=== PATIENT | male | born 1985 | race African-American/Black ===

== ENCOUNTER 2017-10-03 20:24 | Inpatient (IN) | payer OTHER ==
--- OUTSIDE RECORDS SUMMARY | 2017-10-03 20:26 | XMS REPORT ---
:1985 [facility] Organization [facility] Address [address] [place] [address] [address]. [address] [place] [address] Care Team Providers Name Role Phone LAMAR GENAO Unavailable Unavailable Problems This patient has no known problems. Allergies, Adverse Reactions, Alerts This patient has no known allergies or adverse reactions. Medications This patient has no known medications. Results Test Description Test Time Test Comments Text Results Atomic Results Result Comments BLOOD CULTURE 2016-12-28 16:22:00 Test Item Value Reference Range Comments CULTURE (BEAKER) (test juxz=4761) No growth in 5 days BLOOD [id number] 16:22:00 Test Item Value Reference Range Comments CULTURE (BEAKER) (test nqfj=6151) No growth in 5 days (MANUAL DIFFERENTIAL)2016-12-25 22:29:00 Test Item Value Reference Range Comments TOTAL COUNTED (BEAKER) (test hsux=1470) WBC MORPHOLOGY (BEAKER) (test obkh=206) Normal PLT MORPHOLOGY (BEAKER) (test vgdi=082) Normal RBC MORPHOLOGY (BEAKER) (test kmhz=044) Normal CBC W/PLT COUNT & AUTO [id number] 22:28:00 Test Item Value Reference Range Comments WHITE BLOOD CELL COUNT (BEAKER) (test bled=149) 7.3 K/ L 4.0-10.0 RED BLOOD CELL COUNT (BEAKER) (test gcpv=455) 5.09 M/ L 4.20-5.80 HEMOGLOBIN (BEAKER) (test akbw=077) 13.0 GM/DL 13.0-16.8 HEMATOCRIT (BEAKER) (test jahd=024) 42.3 % 40.0-50.0 MEAN CORPUSCULAR VOLUME (BEAKER) (test edov=612) 83.0 fL 82.0-98.0 MEAN CORPUSCULAR HEMOGLOBIN (BEAKER) (test 25.6 pg 27.0-33.0 gffv=516) MEAN CORPUSCULAR HEMOGLOBIN CONC (BEAKER) (test 30.8 GM/DL 32.0-36.0 gctn=165) RED CELL DISTRIBUTION WIDTH (BEAKER) (test 18.0 % 10.3-14.2 xjqe=457) PLATELET COUNT (BEAKER) (test trsy=075) 331 K/CU MM 150-430 MEAN PLATELET VOLUME (BEAKER) (test vpse=141) 8.5 fL 6.5-10.5 NUCLEATED RED BLOOD CELLS (BEAKER) (test 0 /100 WBC 0-0 xxii=109) NEUTROPHILS RELATIVE PERCENT (BEAKER) (test 65 % mhon=050) LYMPHOCYTES RELATIVE PERCENT (BEAKER) (test 23 % okbf=241) MONOCYTES RELATIVE PERCENT (BEAKER) (test 8 % umgn=460) EOSINOPHILS RELATIVE PERCENT (BEAKER) (test 3 % ncjm=657) BASOPHILS RELATIVE PERCENT (BEAKER) (test 1 % fnzt=076) NEUTROPHILS ABSOLUTE COUNT (BEAKER) (test 4.75 K/ L 1.80-8.00 nxin=176) LYMPHOCYTES ABSOLUTE COUNT (BEAKER) (test 1.68 K/ L 1.48-4.50 wzce=204) MONOCYTES ABSOLUTE COUNT (BEAKER) (test 0.55 K/ L 0.00-1.30 ngvu=990) EOSINOPHILS ABSOLUTE COUNT (BEAKER) (test 0.24 K/ L 0.00-0.50 eqqg=971) BASOPHILS ABSOLUTE COUNT (BEAKER) (test 0.05 K/ L 0.00-0.20 ergy=061) [id number] METABOLIC [id number] 11:11:00 Test Item Value Reference Range Comments SODIUM (BEAKER) (test 138 meq/L 136-145 vyuk=425) POTASSIUM (BEAKER) (test 4.0 meq/L 3.5-5.1 fozl=108) CHLORIDE (BEAKER) (test 108 meq/L 98-107 ivdu=195) CO2 (BEAKER) (test 23 meq/L 22-29 pxxa=006) BLOOD UREA NITROGEN 11 mg/dL 7-21 (BEAKER) (test ferj=000) CREATININE (BEAKER) (test 0.74 mg/dL 0.57-1.25 stdg=233) GLUCOSE RANDOM (BEAKER) 124 mg/dL 70-105 (test kwwg=543) CALCIUM (BEAKER) (test 8.9 mg/dL 8.4-10.2 wzgv=532) EGFR (BEAKER) (test 150 mL/min/1.73 sq m ESTIMATED GFR IS NOT dgcu=5071) ACCURATE CREATININE CLEARANCE IN PREDICTING GLOMERULAR FILTRATION RATE. ESTIMATED GFR IS NOT APPLICABLE FOR DIALYSIS PATIENTS. URINE [id number] 09:56:00 Test Item Value Reference Range Comments CULTURE (BEAKER) (test <10,000 col/mL skin marilee seoo=0369) COMPREHENSIVE METABOLIC [id number] 08:49:00 Test Item Value Reference Range Comments TOTAL PROTEIN (BEAKER) 7.3 gm/dL 6.0-8.3 (test wyyj=167) ALBUMIN (BEAKER) (test 3.3 g/dL 3.5-5.0 hraz=1232) ALKALINE PHOSPHATASE 89 U/L 40-150 (BEAKER) (test mugp=940) BILIRUBIN TOTAL (BEAKER) 1.4 mg/dL 0.2-1.2 (test sskp=884) SODIUM (BEAKER) (test 137 meq/L 136-145 bmcv=014) POTASSIUM (BEAKER) (test 3.7 meq/L 3.5-5.1 agab=750) CHLORIDE (BEAKER) (test 108 meq/L 98-107 jrtn=088) CO2 (BEAKER) (test 17 meq/L 22-29 zpus=575) BLOOD UREA NITROGEN 12 mg/dL 7-21 (BEAKER) (test jymy=394) CREATININE (BEAKER) (test 0.78 mg/dL 0.57-1.25 ocwv=361) GLUCOSE RANDOM (BEAKER) 119 mg/dL 70-105 (test dquz=475) CALCIUM (BEAKER) (test 8.6 mg/dL 8.4-10.2 yjxx=500) AST (SGOT) (BEAKER) (test 13 U/L 5-34 rioj=707) ALT (SGPT) (BEAKER) (test 28 U/L 6-55 qpzh=109) EGFR (BEAKER) (test 141 mL/min/1.73 sq ESTIMATED GFR IS NOT cdnd=5239) m ACCURATE CREATININE CLEARANCE IN PREDICTING GLOMERULAR FILTRATION RATE. ESTIMATED GFR IS NOT APPLICABLE FOR DIALYSIS PATIENTS. CBC W/PLT COUNT & AUTO [id number] 08:46:00 Test Item Value Reference Range Comments WHITE BLOOD CELL COUNT (BEAKER) (test kmlq=931) 9.4 K/ L 4.0-10.0 RED BLOOD CELL COUNT (BEAKER) (test ojno=330) 4.79 M/ L 4.20-5.80 HEMOGLOBIN (BEAKER) (test ihtm=388) 12.8 GM/DL 13.0-16.8 HEMATOCRIT (BEAKER) (test tdbs=190) 40.0 % 40.0-50.0 MEAN CORPUSCULAR VOLUME (BEAKER) (test xunw=141) 83.4 fL 82.0-98.0 MEAN CORPUSCULAR HEMOGLOBIN (BEAKER) (test 26.7 pg 27.0-33.0 mtrv=594) MEAN CORPUSCULAR HEMOGLOBIN CONC (BEAKER) (test 32.0 GM/DL 32.0-36.0 ebun=929) RED CELL DISTRIBUTION WIDTH (BEAKER) (test 18.2 % 10.3-14.2 xtqr=379) PLATELET COUNT (BEAKER) (test tmln=420) 313 K/CU MM 150-430 MEAN PLATELET VOLUME (BEAKER) (test agyy=076) 8.6 fL 6.5-10.5 NUCLEATED RED BLOOD CELLS (BEAKER) (test 0 /100 WBC 0-0 ozgt=137) NEUTROPHILS RELATIVE PERCENT (BEAKER) (test 70 % iusz=886) LYMPHOCYTES RELATIVE PERCENT (BEAKER) (test 16 % aaxt=733) MONOCYTES RELATIVE PERCENT (BEAKER) (test 12 % fpse=644) EOSINOPHILS RELATIVE PERCENT (BEAKER) (test 1 % kfqs=677) BASOPHILS RELATIVE PERCENT (BEAKER) (test 1 % qcml=012) NEUTROPHILS ABSOLUTE COUNT (BEAKER) (test 6.54 K/ L 1.80-8.00 pwfx=211) LYMPHOCYTES ABSOLUTE COUNT (BEAKER) (test 1.50 K/ L 1.48-4.50 bkus=972) MONOCYTES ABSOLUTE COUNT (BEAKER) (test 1.13 K/ L 0.00-1.30 mvcv=281) EOSINOPHILS ABSOLUTE COUNT (BEAKER) (test 0.13 K/ L 0.00-0.50 pbzd=970) BASOPHILS ABSOLUTE COUNT (BEAKER) (test 0.06 K/ L 0.00-0.20 iqbd=472) 0.00URINALYSIS W/ [id number] 20:36:00 Test Item Value Reference Range Comments COLOR (BEAKER) (test xisr=945) Yellow CLARITY (BEAKER) (test dkaa=241) Hazy SPECIFIC GRAVITY UA (BEAKER) (test xioa=440) 1.012 1.001-1.035 PH UA (BEAKER) (test tnhw=466) 5.5 5.0-8.0 PROTEIN UA (BEAKER) (test nenu=964) 100 mg/dL Negative GLUCOSE UA (BEAKER) (test ifpw=441) Negative Negative KETONES UA (BEAKER) (test pisu=913) Negative Negative BILIRUBIN UA (BEAKER) (test wuka=144) Negative Negative BLOOD UA (BEAKER) (test plyd=047) Moderate Negative NITRITE UA (BEAKER) (test cnku=862) Negative Negative LEUKOCYTE ESTERASE UA (BEAKER) (test sexb=525) Large Negative UROBILINOGEN UA (BEAKER) (test gwat=061) 3.0 mg/dL 0.2-1.0 RBC UA (BEAKER) (test utjt=091) 19 /HPF WBC UA (BEAKER) (test zwbj=612) 182 /HPF SOURCE(BEAKER) (test jrgk=2400) BASIC METABOLIC [id number] 17:00:00 Test Item Value Reference Range Comments SODIUM (BEAKER) (test 140 meq/L 136-145 yqug=606) POTASSIUM (BEAKER) (test 3.7 meq/L 3.5-5.1 rcyl=355) CHLORIDE (BEAKER) (test 112 meq/L 98-107 vpyf=983) CO2 (BEAKER) (test 17 meq/L 22-29 afxq=393) BLOOD UREA NITROGEN 23 mg/dL 7-21 (BEAKER) (test eqfq=183) CREATININE (BEAKER) (test 1.00 mg/dL 0.57-1.25 kfns=186) GLUCOSE RANDOM (BEAKER) 102 mg/dL 70-105 (test ybsh=747) CALCIUM (BEAKER) (test 8.7 mg/dL 8.4-10.2 lipu=320) EGFR (BEAKER) (test 106 mL/min/1.73 sq m ESTIMATED GFR IS NOT cphn=8407) ACCURATE CREATININE CLEARANCE IN PREDICTING GLOMERULAR FILTRATION RATE. ESTIMATED GFR IS NOT APPLICABLE FOR DIALYSIS PATIENTS. Specimen slightly ictericCBC W/PLT COUNT & AUTO [id number] 12:18 :00 Test Item Value Reference Range Comments WHITE BLOOD CELL COUNT (BEAKER) (test yosq=519) 16.4 K/ L 4.0-10.0 RED BLOOD CELL COUNT (BEAKER) (test ebsn=530) 5.22 M/ L 4.20-5.80 HEMOGLOBIN (BEAKER) (test okof=996) 14.4 GM/DL 13.0-16.8 HEMATOCRIT (BEAKER) (test ssbv=190) 42.9 % 40.0-50.0 MEAN CORPUSCULAR VOLUME (BEAKER) (test oqdp=149) 82.2 fL 82.0-98.0 MEAN CORPUSCULAR HEMOGLOBIN (BEAKER) (test 27.5 pg 27.0-33.0 andf=517) MEAN CORPUSCULAR HEMOGLOBIN CONC (BEAKER) (test 33.5 GM/DL 32.0-36.0 ercl=392) RED CELL DISTRIBUTION WIDTH (BEAKER) (test 16.2 % 10.3-14.2 firc=501) PLATELET COUNT (BEAKER) (test hrvo=264) 329 K/CU MM 150-430 MEAN PLATELET VOLUME (BEAKER) (test lmfs=850) 8.2 fL 6.5-10.5 NUCLEATED RED BLOOD CELLS (BEAKER) (test 0 /100 WBC 0-0 hetd=547) NEUTROPHILS RELATIVE PERCENT (BEAKER) (test 83 % unrx=681) LYMPHOCYTES RELATIVE PERCENT (BEAKER) (test 7 % qtwl=158) MONOCYTES RELATIVE PERCENT (BEAKER) (test 9 % wqzd=290) EOSINOPHILS RELATIVE PERCENT (BEAKER) (test 0 % uvtv=423) BASOPHILS RELATIVE PERCENT (BEAKER) (test 0 % oect=270) NEUTROPHILS ABSOLUTE COUNT (BEAKER) (test 1.62 K/ L 1.80-8.00 yeec=309) LYMPHOCYTES ABSOLUTE COUNT (BEAKER) (test 1.15 K/ L 1.48-4.50 ycig=025) MONOCYTES ABSOLUTE COUNT (BEAKER) (test 1.56 K/ L 0.00-1.30 icxu=925) EOSINOPHILS ABSOLUTE COUNT (BEAKER) (test 0.01 K/ L 0.00-0.50 xlmu=825) BASOPHILS ABSOLUTE COUNT (BEAKER) (test 0.02 K/ L 0.00-0.20 fyxn=839) (MANUAL DIFFERENTIAL)2016-12-23 12:18:00 Test Item Value Reference Range Comments TOTAL COUNTED (BEAKER) (test slqq=7138) WBC MORPHOLOGY (BEAKER) (test tuvr=272) Normal PLT MORPHOLOGY (BEAKER) (test kbbu=352) Normal RBC MORPHOLOGY (BEAKER) (test tjvh=438) Normal
[2017-10-03 21:05] LABS: Urine Blood 2+ (NEG); Urine Glucose NEGATIVE (NEG); Urine Protein 2+ (NEG); Urine Specific Gravity 1.025 (1.005-1.030); Urine pH 6.5 (5.0-7.0)
[2017-10-03 22:05] LABS: Absolute Neutrophil 6.3 K/uL (1.8-8.0); Basophils % 0.5 % (0-1.3); Eosinophils % 1.2 % (0-4.4); Hematocrit 45.4 % (39.6-49.0); Lymphocytes % 11.5 % (15.3-44.8); MCH 27.6 pg (27.0-35.0); MCV 82.4 fL (80-100); MPV 8.3 fL (7.6-11.3); RBC Red Blood Cell Count 5.51 M/uL (4.33-5.43)
[2017-10-03 22:10] LABS: Protime INR 1.1
[2017-10-03] MEDS ORDERED: NA CHLORIDE 0.9% 1,000 ML ONE (22:17)
[2017-10-03 22:23] LABS: Bicarbonate 28 mEq/L (21-31); Glucose Level 84 mg/dL (65-120); Lipase 22 U/L (22-51); Potassium 3.9 mEq/L (3.6-5.0); Sodium Level 141 mEq/L (135-145)
[2017-10-03 22:30] LABS: ALT/SGPT 135 IU/L (10-60); AST/SGOT 88 IU/L (10-42); Albumin 3.6 g/dL (3.2-5.5); Alkaline Phosphatase 192 IU/L (42-121); BUN Blood Urea Nitrogen 10 mg/dL (6-20); Bilirubin Direct 0.6 mg/dL (0-0.2); Bilirubin Total 1.9 mg/dL (0.3-1.2); Protein, Total 7.8 g/dL (6.0-8.3)
[2017-10-03 22:44] LABS: Glomerular Filtration Rate > 90 mL/min (=/>90)
[2017-10-04] MEDS ORDERED: Oxycodone HCl/Acetaminophen 1 TAB TAB ONE (01:08)
--- NOTE | 2017-10-04 01:20 | P.HP ---
Certification for Inpatient Patient admitted to: Inpatient With expected LOS: >2 Midnights Practitioner: I am a practitioner with admitting privileges, knowledge of patient current condition, hospital course, and medical plan of care. Services: Services provided to patient in accordance with Admission requirements found in Title 42 Section 412.3 of the Code of Federal Regulations Patient History Date of Service: 10/04/17 Reason for admission: worsening left chronic osteomyelitis/wound History of Present Illness: Mr Feldman is a 32 years old male with history of chronic wound/osteomyelitis in his left foot, came to ED complaining of increasing pain, fever, sweating episodes since 2 days ago. He knows that his wound is worse because can smell foul odor since a couple of days. He is followed up by Dr Hartmann in the wound healing center, last time seen about 1 week ago, according to the patient. At arrival he was febrile 100.0 F, WBC within normal limits, normal lactate and procalcitonin. Bilirubin is elevated. Left foot wound has necrotic margins with foul odor and yellowish secretion. Allergies levofloxacin [From Levaquin] Allergy (Intermediate, Verified 05/16/17 20:23) Hives morphine Allergy (Intermediate, Verified 05/16/17 20:23) Hives sulfamethoxazole [From Bactrim] Allergy (Intermediate, Verified 05/16/17 20:23) Hives trimethoprim [From Bactrim] Allergy (Intermediate, Verified 05/16/17 20:23) Hives ketorolac Allergy (Verified 05/16/17 20:23) Unknown ketorolac tromethamine [From Toradol] Allergy (Verified 10/06/16 00:13) Nausea/Vomiting ondansetron [From Zofran (as hydrochloride)] Allergy (Unverified 11/01/16 22:09) Unknown ondansetron HCl [From Zofran (as hydrochloride)] Allergy (Verified 05/16/17 20: 23) Nausea/Vomiting vancomycin Allergy (Verified 05/16/17 20:23) Hives amoxicillin [From Augmentin] Adverse Reaction (Verified 10/06/16 00:13) Nausea/Vomiting ciprofloxacin Adverse Reaction (Verified 10/06/16 00:13) Nausea/Vomiting clavulanic acid [From Augmentin] Adverse Reaction (Verified 10/06/16 00:13) Nausea/Vomiting doxycycline Adverse Reaction (Verified 10/06/16 00:13) Nausea/Vomiting CLAVULANIC Allergy (Uncoded 11/07/16 23:21) Unknown Doxycyclin Allergy (Uncoded 11/01/16 22:09) Unknown Doxycycline Allergy (Uncoded 11/01/16 11:56) Unknown TRIME Allergy (Uncoded 11/01/16 22:09) Unknown TRIMET Allergy (Uncoded 11/07/16 23:21) Unknown VANCOMYCIN AN Allergy (Uncoded 11/01/16 11:56) Unknown Zofran (as h Allergy (Uncoded 11/01/16 11:56) Unknown Zofran (as hyd Allergy (Uncoded 11/07/16 23:21) Unknown Home Medications: Oxycodone HCl/Acetaminophen [Oxycodone-Acetaminophen 10-325] 1 tab PO TID Collagenase [Santyl Ointment*] 1 appl TOP DAILY #30 tube 02/06/16 Clindamycin HCl [Cleocin HCl] 300 mg PO TID #30 capsule 05/17/17 Collagenase [Santyl Ointment*] 1 appl TOP DAILY #1 tube 05/17/17 Famotidine [Pepcid*] 20 mg PO BID #60 tab 05/17/17 traMADol HCL [Ultram*] 50 mg PO TID PRN #20 tab 05/17/17 - Past Medical/Surgical History Diabetic: No -: Spina bifida -: History of osteomyelitis -: History of recurrent UTIs with sepsis -: Hydrocephalus -: 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 He has no children. He is disabled. - Family History Father -: Hypertension Mother -: Hypertension - Social History Smoking Status: Current every day smoker Counseled patient to stop smoking for: less than 10 minutes Alcohol use: Yes CD- Drugs: No Caffeine use: Yes Review of Systems 10-point ROS is otherwise unremarkable Physical Examination - Physical Exam General: Alert, In no apparent distress HEENT: Atraumatic, PERRLA, Mucous membr. moist/pink, EOMI, Sclerae nonicteric Neck: Supple, 2+ carotid pulse no bruit, No LAD, Without JVD or thyroid abnormality Respiratory: Clear to auscultation bilaterally, Normal air movement Cardiovascular: Regular rate/rhythm, Normal S1 S2 Gastrointestinal: Normal bowel sounds, No tenderness Musculoskeletal: Swelling Integumentary: No rashes, Skin breakdown, Skin lesion, Other (left foot ulcerative wound with necrotic marigins and yellowish secretions) Neurological: Normal speech, Normal tone, Normal affect Lymphatics: No axilla or inguinal lymphadenopathy - Studies Laboratory Data (last 24 hrs) 10/03/17 21:49: PT 13.0 H, INR 1.10 10/03/17 21:49: WBC 8.5, Hgb 15.2, Hct 45.4, Plt Count 353 10/03/17 21:49: B-Natriuretic Peptide 20 10/03/17 21:49: Sodium 141, Potassium 3.9, BUN 10, Creatinine 0.80, Glucose 84, Total Bilirubin 1.9 H, AST 88 H, ALT 135 H, Alkaline Phosphatase 192 H, Lipase 22 Assessment and Plan - Problems (Diagnosis) (1) Pressure ulcer of right ankle, stage 3 Current Visit: No Status: Acute (2) Osteomyelitis Current Visit: No Status: Chronic Qualifiers: Osteomyelitis type: chronic multifocal (3) Spina bifida Onset Date: 05/17/17 Current Visit: No Status: Chronic Qualifiers: Spinal region: lumbosacral Presence of hydrocephalus: with hydrocephalus Qualified Code(s): Q05.2 - Lumbar spina bifida with hydrocephalus (4) Nausea & vomiting Onset Date: 02/03/16 Current Visit: No Status: Resolved Qualifiers: Vomiting type: unspecified Vomiting Intractability: unspecified Qualified Code(s): R11.2 - Nausea with vomiting, unspecified - Plan The patient will be admitted to the hospital due to necrotic pressure ulcer on his left foot, known having chronic osteomyelitis. Will start empiric antibiotics, adjusted to his extensive list of medication allergies, consult Dr Hartmann, order symptomatic medication for nausea and pain. - Advance Directives Does patient have a Living Will: No Does patient have a Durable POA for Healthcare: Yes - Code Status/Comfort Care Code Status Assessed: Yes Code Status: Full Code
--- NOTE | 2017-10-04 01:40 | EDPHYS ---
Physician Documentation [facility] Name: Roland Feldman Jr Age: 32 yrs Sex: Male : 1985 Arrival Date: 10/03/2017 Time: 20:25 Bed 8 Private MD: ED Physician Jan Vang HPI: 10/04 00:07 This 32 yrs old Black Male presents to ER via EMS with complaints of Fever. gs 00:07 The patient reports fever, not measured (subjective). Onset: The symptoms/episode gs began/occurred today. Modifying factors: there are no obvious modifying factors. Associated signs and symptoms: Pertinent negatives: abdominal pain, chest pain, cough. Severity of symptoms: At their worst the symptoms were moderate in the emergency department the symptoms have improved markedly, no antipyretics since 12 pm 10/03. The patient has experienced similar episodes in the past, a few times. Historical: - Allergies: 10/03 20:32 Amoxicillin; ak1 20:32 Bactrim; ak1 20:32 Ciprofloxacin; ak1 20:32 CLAVULANIC ACID; ak1 20:32 Doxycycline; ak1 20:32 Levofloxacin; ak1 20:32 Morphine; ak1 20:32 sulfamethoxazole; ak1 20:32 Toradol; ak1 20:32 TRIMETHOPRIM; ak1 20:32 Vancomycin; ak1 20:32 Zofran; ak1 - Home Meds: 20:32 Percocet 10-325 mg Oral tab 1 tab twice a day [Active]; ak1 - PMHx: 20:32 Asthma; decubitus ulcers on feet; Cerebral Palsy; Hydrocephalus; spina bifida; ak1 - PSHx: 20:32 Cholecystectomy; Hydrocephalus Shunt; back sx; hip sx; left heel sx; ak1 - Immunization history:: Adult Immunizations unknown. - Social history:: Smoking status: unknown. ROS: 10/04 00:07 Cardiovascular: Negative for chest pain. gs Exam: 01:35 Head/Face: Normocephalic, atraumatic. Eyes: Pupils equal round and reactive to light, gs extra-ocular motions intact. Lids and lashes normal. Conjunctiva and sclera are non-icteric and not injected. Cornea within normal limits. Periorbital areas with no swelling, redness, or edema. ENT: Nares patent. No nasal discharge, no septal abnormalities noted. Tympanic membranes are normal and external auditory canals are clear. Oropharynx with no redness, swelling, or masses, exudates, or evidence of obstruction, uvula midline. Mucous membranes moist. Neck: Trachea midline, no thyromegaly or masses palpated, and no cervical lymphadenopathy. Supple, full range of motion without nuchal rigidity, or vertebral point tenderness. No Meningismus. Chest/axilla: Normal chest wall appearance and motion. Nontender with no deformity. No lesions are appreciated. 01:35 Respiratory: Lungs have equal breath sounds bilaterally, clear to auscultation and percussion. No rales, rhonchi or wheezes noted. No increased work of breathing, no retractions or nasal flaring. Abdomen/GI: Soft, non-tender, with normal bowel sounds. No distension or tympany. No guarding or rebound. No evidence of tenderness throughout. Back: No spinal tenderness. No costovertebral tenderness. Full range of motion. 01:35 Constitutional: The patient appears alert, awake. 01:35 Cardiovascular: Rate: tachycardic, Rhythm: regular. 01:35 ECG was reviewed by the Attending Physician. 01:35 Skin: break out stage 4 both feet plantar surface, looks gangrenous, smells putrid, needs debridgement. Vital Signs: 10/03 20:27 BP 151 / 108; Pulse 110; Resp 18; Temp 99.3(O); Pulse Ox 99% on R/A; Weight 127.01 kg ak1 (R); Height 4 ft. 11 in. (149.86 cm) (R); Pain 9/10; 23:59 BP 163 / 91; Pulse 111; Resp 20; Temp 100.0(O); Pulse Ox 100% on R/A; Pain 9/10; ak1 20:27 Body Mass Index 56.55 (127.01 kg, 149.86 cm) ak1 MDM: 20:30 Patient medically screened. 10/04 01:35 Differential diagnosis: bacterial infection, pneumonia UTI, gastroenteritis. Data reviewed: vital signs, nurses notes. Response to treatment: the patient's symptoms have mildly improved after treatment, and as a result, I will admit patient. 10/03 20:33 Order name: Basic Metabolic Panel 10/03 20:33 Order name: Blood Culture Adult (2) 10/03 20:33 Order name: BNP 10/03 20:33 Order name: CBC with Diff 10/03 20:33 Order name: Lactate 10/03 20:33 Order name: LFT's 10/03 20:33 Order name: Lipase 10/03 20:33 Order name: Procalcitonin 10/03 20:33 Order name: Protime (+inr) 10/03 20:33 Order name: Troponin (emerg Dept Use Only) 10/03 20:59 Order name: Urine Dipstick--Ancillary (enter results) 2 10/03 21:05 Order name: Urine Dipstick-Ancillary; Complete Time: 23:17 EDMS 10/03 22:06 Order name: CBC with Automated Diff; Complete Time: 23:17 EDMS 10/03 22:16 Order name: Lactate; Complete Time: 23:17 EDMS 10/03 20:33 Order name: Chest Single View XRAY 10/03 20:33 Order name: Cardiac monitoring; Complete Time: 21:15 10/03 20:33 Order name: EKG - Nurse/Tech; Complete Time: 21:15 10/03 20:33 Order name: IV Saline Lock - Large Bore; Complete Time: 21:53 10/03 20:33 Order name: Labs collected and sent; Complete Time: 21:53 10/03 20:33 Order name: O2 Per Protocol; Complete Time: 20:36 10/03 22:22 Order name: Troponin (Emerg Dept Use Only); Complete Time: 23:17 EDMS 10/03 22:24 Order name: Basic Metabolic Panel; Complete Time: 23:17 EDMS 10/03 22:24 Order name: Lipase; Complete Time: 23:17 EDMS 10/03 22:24 Order name: BNP B-Type Natriuretic Peptide; Complete Time: 23:17 EDMS 10/03 22:30 Order name: Procalcitonin; Complete Time: 23:17 EDMS 10/03 22:30 Order name: Liver (Hepatic) Function; Complete Time: 23:17 EDMS 10/03 22:32 Order name: Protime (+INR); Complete Time: 23:17 EDMS 10/03 20:33 Order name: O2 Sat Monitoring; Complete Time: 20:36 10/03 20:33 Order name: Urine Dipstick-Ancillary (obtain specimen); Complete Time: 21:01 EC:35 Rate is 104 beats/min. Rhythm is regular. MD interval is normal. QRS interval is gs normal. QT interval is normal. T waves are Flattened. Clinical impression: NSR w/ Non-specific ST/T Changes and Abnormal EKG without significant change. Interpreted by me. Administered Medications: 10/03 22:00 Drug: NS 0.9% 1000 ml Route: IV; Rate: 1 bolus; Site: right antecubital; ak1 10/04 00:50 Drug: Percocet (5 mg-325 mg) 2 tabs Route: PO; ak1 01:45 Follow up: Response: No adverse reaction ak1 Disposition: 10/04/17 01:39 Hospitalization ordered by Annita Kim for Inpatient Admission. Preliminary diagnosis is Gangrene, not elsewhere classified. - Bed requested for Telemetry/MedSurg (Inpatient). - Status is Inpatient Admission. ak1 - Condition is Stable. - Problem is an acute exacerbation. - Symptoms are unchanged. UTI on Admission? No Signatures: Dispatcher [employer] EDBonnie Eubanks RN Lein Daly RN RN ak1 Jan Vang MD MD Corrections: (The following items were deleted from the chart) 10/03 23:30 20:33 Accucheck ordered. ak1
--- NOTE | 2017-10-04 01:40 | ER ---
Nurse's Notes [facility] Name: Roland Feldman Jr Age: 32 yrs Sex: Male : 1985 Arrival Date: 10/03/2017 Time: 20:25 Bed 8 Private MD: Diagnosis: Gangrene, not elsewhere classified Presentation: 10/03 20:27 Presenting complaint: Patient states: fever X1. pt c/o vomiting and diarrhea X2 days. ak1 pt last dose Percocet at 1400 today. Transition of care: patient was not received from another setting of care. Onset of symptoms was October 02, 2017. Care prior to arrival: None. 20:27 Method Of Arrival: EMS: [facility] ak1 20:27 Acuity: YUKI 3 ak1 Triage Assessment: 20:32 General: Appears in no apparent distress. Behavior is calm, cooperative. Pain: ak1 Complains of pain in back and left heel. EENT: No signs and/or symptoms were reported regarding the EENT system. Neuro: No deficits noted. Cardiovascular: Chest pain. Respiratory: No deficits noted. GI: Reports diarrhea, nausea, vomiting. : No signs and/or symptoms were reported regarding the genitourinary system. Derm: Reports fever X 1 day. Musculoskeletal: No signs and/or symptoms reported regarding the musculoskeletal system. Historical: - Allergies: 20:32 Amoxicillin; ak1 20:32 Bactrim; ak1 20:32 Ciprofloxacin; ak1 20:32 CLAVULANIC ACID; ak1 20:32 Doxycycline; ak1 20:32 Levofloxacin; ak1 20:32 Morphine; ak1 20:32 sulfamethoxazole; ak1 20:32 Toradol; ak1 20:32 TRIMETHOPRIM; ak1 20:32 Vancomycin; ak1 20:32 Zofran; ak1 - Home Meds: 20:32 Percocet 10-325 mg Oral tab 1 tab twice a day [Active]; ak1 - PMHx: 20:32 Asthma; decubitus ulcers on feet; Cerebral Palsy; Hydrocephalus; spina bifida; ak1 - PSHx: 20:32 Cholecystectomy; Hydrocephalus Shunt; back sx; hip sx; left heel sx; ak1 - Immunization history:: Adult Immunizations unknown. - Social history:: Smoking status: unknown. Screenin:34 Abuse screen: Denies threats or abuse. Denies injuries from another. Nutritional ak1 screening: No deficits noted. Tuberculosis screening: No symptoms or risk factors identified. Fall Risk Ambulatory Aid- None/Bed Rest/Nurse Assist (0 pts). Assessment: 20:35 Reassessment: Patient appears in no apparent distress at this time. No changes from ak1 previously documented assessment. pt with wounds to bilateral feet. 23:57 Reassessment: Patient appears in no apparent distress at this time. No changes from ak1 previously documented assessment. pt continues to c/o pain to bilateral lower legs. pt stated he needs his left foot dressing changed due to his home health nurse canceling their appointment today. ERP notified of pt requesting IV pain medication due to vomiting at home. pt has had no vomiting noted while here in the ER. pt does not have his personally wheelchair at this time. 10/04 00:50 Reassessment: gangernous wound to bottom of left foot, ERP visualized. wound to be ak1 redressed per verbal orders from ERP. . Vital Signs: 10/03 20:27 BP 151 / 108; Pulse 110; Resp 18; Temp 99.3(O); Pulse Ox 99% on R/A; Weight 127.01 kg ak1 (R); Height 4 ft. 11 in. (149.86 cm) (R); Pain 9/10; 23:59 BP 163 / 91; Pulse 111; Resp 20; Temp 100.0(O); Pulse Ox 100% on R/A; Pain 9/10; ak1 20:27 Body Mass Index 56.55 (127.01 kg, 149.86 cm) ak1 ED Course: 20:25 Patient arrived in ED. ds1 20:26 Lien Doss, RN is Primary Nurse. ak1 20:29 Jan Vang MD is Attending Physician. gs 20:30 Triage completed. ak1 20:32 Arm band placed on Patient placed in an exam room, on a stretcher, on pulse oximetry. ak1 20:34 Patient has correct armband on for positive identification. Bed in low position. Call ak1 light in reach. Side rails up X2. Pulse ox on. NIBP on. 20:45 X-ray completed. Portable x-ray completed in exam room. Patient tolerated procedure kc2 well. 21:49 Inserted saline lock: 18 gauge in right antecubital area, using aseptic technique. bb Blood collected. 10/04 01:13 Dressings: Gemini x 1 left foot non-adherent dressing x 2 left foot Kike bandage X2 to ak1 left foot. 01:39 Annita Kim MD is Hospitalizing Provider. 03:04 No provider procedures requiring assistance completed. Patient admitted, IV remains in ak1 place. Administered Medications: 10/03 22:00 Drug: NS 0.9% 1000 ml Route: IV; Rate: 1 bolus; Site: right antecubital; ak1 10/04 00:50 Drug: Percocet (5 mg-325 mg) 2 tabs Route: PO; ak1 01:45 Follow up: Response: No adverse reaction ak1 Output: 10/03 21:15 Urine: 250ml (Alcantara); Total: 250ml. ak1 Outcome: 10/04 01:39 Decision to Hospitalize by Provider. 03:04 Admitted to Med/surg accompanied by nurse, accompanied by tech, via stretcher, with ak1 chart, Report called to Glenda DISLA 03:04 Condition: stable 03:04 Instructed on the need for admit. 03:07 Patient left the ED. ak1 Signatures: Jaleesa Lal Brenda, RN RN Lien Rodriguez RN RN ak1 Radha Puente Gregory, MD MD
[2017-10-04] MEDS ORDERED: ACETAMINOPHEN 500 MG TAB PO PRN (02:15)
[2017-10-04] MEDS ORDERED: ONDANSETRON 4 MG/2 ML VIAL IV PRN (02:15)
[2017-10-04] MEDS ORDERED: PIPERACIL/TAZO 3.375 GM VIAL IV ONE (03:37)
[2017-10-04] MEDS ORDERED: NA CHLORIDE 0.9% 100 ML ONE (03:40)
[2017-10-04] MEDS: NA CHLORIDE 0.9% 1,000 ML IV SCH ×2 (03:42→12:15)
[2017-10-04] MEDS: PIPER/TAZO/NS 3.375gm 3.375 GM/100 ML BAG IVPB SCH ×3 (03:44→17:01)
[2017-10-04] MEDS: Oxycodone HCl/Acetaminophen 1 TAB TAB PO PRN (04:44)
[2017-10-04 05:29] LABS: Absolute Monocytes 0.9 K/uL (0.1-1.3); Absolute Neutrophil 5.2 K/uL (1.8-8.0); Basophils % 0.6 % (0-1.3); Eosinophils % 1.7 % (0-4.4); Hematocrit 42.3 % (39.6-49.0); Lymphocytes % 13.7 % (15.3-44.8); MCH 27.7 pg (27.0-35.0); MCV 82.5 fL (80-100); MPV 8.6 fL (7.6-11.3); Monocytes % 12.3 % (3.3-12.3); RBC Red Blood Cell Count 5.12 M/uL (4.33-5.43)
[2017-10-04 05:46] LABS: BUN Blood Urea Nitrogen 9 mg/dL (6-20); Bicarbonate 24 mEq/L (21-31); Glomerular Filtration Rate > 90 mL/min (=/>90); Glucose Level 71 mg/dL (65-120); Magnesium 1.9 mg/dL (1.8-2.5); Potassium 3.9 mEq/L (3.6-5.0); Sodium Level 141 mEq/L (135-145)
[2017-10-04] MEDS: PROMETHAZINE 25 MG/ML VIAL IV PRN ×3 (05:51→17:02)
--- NOTE | 2017-10-04 07:57 | EKG ---
Test Date: 2017-10-03 Test Time: 21:09:24 Staffing Rn: MEKA MEASUREMENT RESULTS: Intervals: Rate: 104 WI: 154 QRSD: 92 QT: 314 QTc: 412 [place]: P: 52 WI: 154 QRS: 41 T: 19 INTERPRETIVE STATEMENTS: Sinus tachycardia Otherwise normal ECG Electronically Signed On 10-04-17 07:56:40 CDT by Miguel Romo
[2017-10-04 08:06] VITALS: BMI 56.5
--- NOTE | 2017-10-04 08:25 | RAD REPORT ---
EXAM DESCRIPTION: RAD - Chest Single View - 10/03/2017 8:47 pm CLINICAL HISTORY: Fever, vomiting COMPARISON: September 01 TECHNIQUE: AP portable chest image was obtained 6 hours . FINDINGS: Lung volumes are low. Detail is limited due to portable technique, shallow inspiration and large body habitus. No peripheral mass or consolidation. Heart size is normal. Vasculature within normal limits. Signific ant failure or volume overload are not suspected. No measurable pleural effusion and no pneumothorax. No gross bony abnormality seen. No acute aortic findings suspected. IMPRESSION: Exam is limited but no acute cardiopulmonary process suspected.
[2017-10-04] MEDS ORDERED: INFLUENZA VACCINE (for 5y+) 0.5 ML DOSE IMVAC ONE (09:00)
--- NOTE | 2017-10-04 10:18 | P.PN ---
Subjective Date of Service: 10/04/17 Primary Care Provider: Dr. Gamble; Surgery-Dr. Hartmann Chief Complaint: worsening left chronic osteomyelitis/wound Subjective: Other (Patient reporting pain to the left foot. Overall stable.) Physical Examination - Vital Signs Temperature: 100.0 F Blood Pressure: 163/91 Pulse: 111 Respirations: 20 - Physical Exam General: Alert, In no apparent distress, Cooperative HEENT: Atraumatic Neck: Supple Respiratory: Clear to auscultation bilaterally, Normal air movement Cardiovascular: Normal pulses, Regular rate/rhythm Gastrointestinal: Normal bowel sounds, Soft and benign, Non-distended, No tenderness, No masses, No rebound, No guarding Integumentary: Other (Ulcer to the left foot/heel. Some exudate noted.) Neurological: Normal speech, Other (Patient with history of spina bifida. Not able to move his lower extremity.) Urinary: Suprapubic catheter - Studies Laboratory Data (last 24 hrs) 10/03/17 21:49: PT 13.0 H, INR 1.10 10/03/17 21:49: WBC 8.5, Hgb 15.2, Hct 45.4, Plt Count 353 10/03/17 21:49: B-Natriuretic Peptide 20 10/03/17 21:49: Sodium 141, Potassium 3.9, BUN 10, Creatinine 0.80, Glucose 84, Total Bilirubin 1.9 H, AST 88 H, ALT 135 H, Alkaline Phosphatase 192 H, Lipase 22 Medications List Reviewed: Yes Assessment & Plan - Problems (Diagnosis) (1) Poor social situation Current Visit: Yes Status: Chronic Plan: Patient with poor social situation that is affecting his care for his multiple ulcers. Patient will likely need skilled placement for aggressive wound care and IV antibiotic therapy. Awaiting evaluation of left foot ulcer. Patient likely has osteomyelitis. Culture obtained. Will continue current IV antibiotic therapy. Care discussed with surgery. (2) Hypertension Onset Date: 05/17/17 Current Visit: No Status: Chronic Plan: Patient with history of hypertension. He is not taking any medication. Blood pressure elevated. Will start metoprolol. Will monitor closely. May need further adjustment. Qualifiers: Hypertension type: essential hypertension Qualified Code(s): I10 - Essential (primary) hypertension (3) Lymphedema Onset Date: 05/17/17 Current Visit: No Status: Chronic Plan: Patient with chronic lymphedema. Will monitor closely. (4) Stage III pressure ulcer of left ankle Current Visit: No Status: Acute Plan: Pressure ulcer noted with exudate. Wound culture obtained. Suspect osteomyelitis. MRI ordered. Patient will likely need aggressive wound care and IV antibiotic therapy. If required patient will need PICC line and social services director will need to help with skilled placement. Await MRI finding. Care discussed with surgery who agrees with the plan. (5) Chronic pain disorder Onset Date: 05/17/17 Current Visit: No Status: Chronic Plan: Will provide medication for pain. Will need to monitor for drug-seeking behavior. (6) GERD (gastroesophageal reflux disease) Onset Date: 05/17/17 Current Visit: No Status: Chronic Plan: Will provide PPI. Qualifiers: Esophagitis presence: esophagitis presence not specified Qualified Code(s) : K21.9 - Gastro-esophageal reflux disease without esophagitis (7) Chronic indwelling Alcantara catheter Onset Date: 05/17/17 Current Visit: No Status: Chronic Plan: Patient with chronic indwelling Alcantara catheter. Patient with suprapubic catheter. This needs to be replaced every month. Will need to check his last change. (8) Osteomyelitis Current Visit: No Status: Suspected Plan: Suspect osteomyelitis of the left foot. Will obtain MRI. Will continue with above plan of care. Qualifiers: Osteomyelitis type: chronic multifocal Osteomyelitis location: foot Laterality: left Qualified Code(s): M86.372 - Chronic multifocal osteomyelitis , left ankle and foot (9) Paraplegic spinal paralysis Onset Date: 02/03/16 Current Visit: No Status: Chronic Plan: Patient with history of spina bifida. Patient has paralysis to the lower extremities. Stable at this time. (10) Spina bifida Onset Date: 05/17/17 Current Visit: No Status: Chronic Plan: Patient with history of spina bifida. Patient with shunt in place. Qualifiers: Spinal region: lumbosacral Presence of hydrocephalus: unspecified hydrocephalus presence Qualified Code(s): Q05.7 - Lumbar spina bifida without hydrocephalus Discharge Plan: Other (Skilled placement) Plan to discharge in: Greater than 2 days Time Spent Managing Pts Care (In Minutes): 55
[2017-10-04] MEDS: FENTANYL CITR 100 MCG/2 ML IV PRN ×3 (10:53→20:59)
[2017-10-04] MEDS: LINEZOLID 600 MG IVPB 600 MG/300 ML BAG IV SCH ×3 (10:53→21:01)
[2017-10-04] MEDS: ENOXAPARIN 40 MG/0.4 ML SQ SCH (10:53)
--- NOTE | 2017-10-04 11:38 | CON ---
Reason: Wound, left heel. History Of Present Illness: The patient is a 32-year-old gentleman with chronic wound on his left fo ot. He came to the ER complaining of pain, fever, and sweating for 2 days. He follows up with me in the wound healing center and he had a temperature of 100.0. He has some yellowish discharge from th e wound and foul odor and he was admitted and I was consulted. He is awake, alert, still acting a li ttle weak. No current fever or chills. Review of Systems: Otherwise unremarkable. Past Medical History: Spina bifida, history of osteomyelitis, recurrent UTI, hydrocephalus, cranial perineal shunt, migraines, paralysis in the lower extremities. Past Surgical History: Shunt revision, cholecystectomy, indwelling suprapubic catheter, foot surgery , hip surgery, appendectomy. Allergies: MULTIPLE; LEVAQUIN, MORPHINE, BACTRIM, KETOROLAC, ONDANSETRON, AMOXICILLIN, CIPRO, DOXYCYCLINE, VANCOMYCIN, ZOFRAN. Medications: Reviewed. Social History: He does smoke. He was counselled and drinks occasionally. Family History: Noncontributory. Physical Examination: Vital Signs: Stable. His temperature the last one is 100. His heart rate is a little elevated 111. He is awake and alert. Head and Neck: No masses. Chest: Clear. Heart: S1, S2. Abdomen: Soft. Extremity: Chronic lymphedema with left heel wound approximately 8 x 6 cm with some fibrinous necrot ic tissue in it, but there is no purulence. There is no surrounding erythema, warmth, or edema. Laboratory Data: White count is normal. There is no left shift today. His procalcitonin is normal. His lactic acid is normal. Assessment: A 32-year-old gentleman with febrile illness, etiology unlikely to be the wound, possibl e gastroenteritis. Recommendation: Hydration. We will await the results of the MRI on the heel, but this is a chronic wound. I do not think that is the source of his illness at this time. His main issue is social issu es at home. His insurance does not offer for daily home health nurse to come, so he is dependent on his mother to change his dressing and she can do it every day and that is why he develops foul odor a nd has difficulty with the wounds healing. He is not able to get appropriate care for the wound as n eeded. I will discuss this case with Dr. Gurrola, and perhaps skill nursing would be better for this patient so he can get adequate wound care and help with his daily life issues, which he is having to struggling with at this time. We will continue antibiotics as ordered, and will await the wound cult ures that have been already ordered and an MRI. We will make further recommendation after the aforem entioned workup has been completed. STEPHANIE/DUNIA Voice ID: [id number] Report ID: [id number]
[2017-10-04] MEDS ORDERED: HYDRALAZINE HCL 20 MG/ML VIAL IV PRN (13:38)
[2017-10-04 14:48] LABS: Urine Appearance TURBID; Urine Blood 2+ (NEG); Urine Color DK YELLOW; Urine Glucose NEGATIVE (NEG); Urine Protein 1+ (NEG); Urine pH 6.5 (5.0-7.0)
[2017-10-04 14:58] LABS: Urine Bilirubin 1+ (NEG); Urine Microscopic Reflex ORDER UMIC
[2017-10-04 15:02] LABS: Urine Bacteria >50 /HPF (NONE SEEN)
[2017-10-04 15:03] LABS: Urine Culture Reflex Order NOT NEEDED
[2017-10-04] MEDS: METOPROLOL TAR 25 MG TAB PO SCH (17:01)
--- NOTE | 2017-10-04 19:49 | RAD REPORT ---
EXAM DESCRIPTION: MRIFoot Left Wo Cont10/04/2017 6:18 pm CLINICAL HISTORY: Left foot pain and swelling. Open wound posterior left foot COMPARISON: 2013 TECHNIQUE: Axial, sagittal and coronal magnetic resonance imaging of the left foot was obtained. FINDINGS: An ulceration involves the soft tissues of the posterior hindfoot. Abnormal signal involves the posterior calcaneus compatible with osteomyelitis. Extensive edema is present within the volar soft tissues of the foot IMPRESSION: Osteomyelitis involving the posterior calcaneus Extensive edema within the volar soft tissues of the forefoot. If the patient has clinical symptoms t o suggest an abscess in this region then ultrasound would be recommended
[2017-10-04] MEDS: JUVEN PACKET PO SCH (21:01)
[2017-10-05] MEDS: PROMETHAZINE 25 MG/ML VIAL IV PRN ×4 (00:09→18:33)
[2017-10-05] MEDS: PIPER/TAZO/NS 3.375gm 3.375 GM/100 ML BAG IVPB SCH ×3 (00:09→16:18)
[2017-10-05] MEDS: FENTANYL CITR 100 MCG/2 ML IV PRN ×3 (04:34→18:33)
[2017-10-05 05:13] LABS: BUN Blood Urea Nitrogen 8 mg/dL (6-20); Bicarbonate 24 mEq/L (21-31); Glomerular Filtration Rate > 90 mL/min (=/>90); Glucose Level 87 mg/dL (65-120); Sodium Level 138 mEq/L (135-145)
[2017-10-05] MEDS: METOPROLOL TAR 25 MG TAB PO SCH ×2 (05:23→18:33)
[2017-10-05] MEDS: PANTOPRAZOLE 40MG TABLET PO SCH (05:23)
--- NOTE | 2017-10-05 08:28 | P.PN ---
Subjective Date of Service: 10/05/17 Primary Care Provider: Dr. Gamble; Surgery-Dr. Hartmann Chief Complaint: worsening left chronic osteomyelitis/wound Subjective: Doing well (Pain seems to be controlled) Physical Examination - Vital Signs Temperature: 98.4 F Blood Pressure: 133/75 Pulse: 104 Respirations: 20 Pulse Ox (%): 95 - Physical Exam General: Alert, In no apparent distress, Oriented x3, Cooperative HEENT: Atraumatic Neck: Supple Respiratory: Clear to auscultation bilaterally, Normal air movement Cardiovascular: Normal pulses, Regular rate/rhythm Gastrointestinal: Normal bowel sounds, Soft and benign, Non-distended, No masses , No rebound, No guarding Musculoskeletal: Other (No changes to the left lower extremity. Patient with history of spina bifida and paralysis below the waist.) - Studies Medications List Reviewed: Yes Assessment & Plan - Problems (Diagnosis) (1) Poor social situation Current Visit: Yes Status: Chronic Plan: Patient with poor social situation that is affecting his care for his multiple ulcers. Patient now with osteomyelitis of the left calcaneus. Patient will need IV antibiotic therapy for 6 weeks. Will consult infectious disease for recommendations. Will pursue skilled placement facility to continue with aggressive antibiotic therapy and wound care. PICC line ordered. (2) Hypertension Onset Date: 05/17/17 Current Visit: No Status: Chronic Plan: Patient with history of hypertension. Patient doing well with medication. Will monitor and adjust appropriately. Qualifiers: Hypertension type: essential hypertension Qualified Code(s): I10 - Essential (primary) hypertension (3) Lymphedema Onset Date: 05/17/17 Current Visit: No Status: Chronic Plan: Patient with chronic lymphedema. Will monitor closely. (4) Stage III pressure ulcer of left ankle Current Visit: No Status: Acute Plan: MRI positive for osteomyelitis. Will order PICC line. Patient will need IV antibiotic therapy for 6 weeks. Will consult infectious disease for recommendations. Will pursue skilled placement for aggressive wound care and IV antibiotic therapy. (5) Chronic pain disorder Onset Date: 05/17/17 Current Visit: No Status: Chronic Plan: Will provide medication for pain. Will need to limit IV pain medication. (6) GERD (gastroesophageal reflux disease) Onset Date: 05/17/17 Current Visit: No Status: Chronic Plan: Will continue with PPI. Qualifiers: Esophagitis presence: esophagitis presence not specified Qualified Code(s) : K21.9 - Gastro-esophageal reflux disease without esophagitis (7) Chronic indwelling Alcantara catheter Onset Date: 05/17/17 Current Visit: No Status: Chronic Plan: Patient with chronic indwelling Alcantara catheter. Patient with suprapubic catheter. This needs to be replaced every month. Will need to check his last change. (8) Osteomyelitis Onset Date: 10/04/17 Current Visit: No Status: Acute Plan: MRI positive for left calcaneus osteomyelitis. Will continue with above plan of care. Qualifiers: Osteomyelitis type: chronic multifocal Osteomyelitis location: foot Laterality: left Qualified Code(s): M86.372 - Chronic multifocal osteomyelitis , left ankle and foot (9) Paraplegic spinal paralysis Onset Date: 02/03/16 Current Visit: No Status: Chronic Plan: Patient with history of spina bifida. Patient has paralysis to the lower extremities. Stable at this time. (10) Spina bifida Onset Date: 05/17/17 Current Visit: No Status: Chronic Plan: Patient with history of spina bifida. Patient with shunt in place. Qualifiers: Spinal region: lumbosacral Presence of hydrocephalus: unspecified hydrocephalus presence Qualified Code(s): Q05.7 - Lumbar spina bifida without hydrocephalus Discharge Plan: Other (Skilled placement facility) Plan to discharge in: 48 Hours Time Spent Managing Pts Care (In Minutes): 55
[2017-10-05] MEDS: JUVEN PACKET PO SCH ×2 (09:00→20:57)
[2017-10-05] MEDS: COLLAGENASE 30 GM OINTMENT TOP SCH (09:00)
[2017-10-05] MEDS: ENOXAPARIN 40 MG/0.4 ML SQ SCH (10:06)
[2017-10-05] MEDS: LINEZOLID 600 MG IVPB 600 MG/300 ML BAG IV SCH ×2 (10:07→20:57)
--- NOTE | 2017-10-05 12:18 | PN ---
Date of Progress Note: 10/05/2017 Subjective: The patient is awake, alert, no new complaints. Objective: Vital Signs: Stable, afebrile. Laboratory Data: White count is 7.2, there was no more left shift today. The patient had an MR of h is left foot and this reveals osteomyelitis of the heel. Physical exam, the dressings are clean, dry, and intact. No significant change. Assessment: Osteomyelitis with wound left heel. Recommendation: PICC line, IV antibiotics. We will await culture, adjust the antibiotics accordingl y. Wound care is ordered and discharge planning. /MODL Voice ID: [id number] Report ID: [id number]
[2017-10-05] MEDS: LIDOCAINE 1% 20 ML MDV ONE ×2 (12:30→12:38)
--- NOTE | 2017-10-05 13:12 | RAD REPORT ---
EXAM DESCRIPTION: RAD - Chest Single View - 10/05/2017 1:02 pm CLINICAL HISTORY: Device placement PICC line placement COMPARISON: October 03 FINDINGS: A PICC line has been inserted with its tip in the distal superior vena cava. The lungs appear clear of acute infiltrate. The heart is normal size. IMPRESSION: PICC line with its tip in the distal superior vena cava
[2017-10-05] MEDS ORDERED: SODIUM CHLORIDE 0.9% 10ML INJ IV PRN ×2 (17:00)
[2017-10-05] MEDS: SODIUM CHLORIDE 0.9% 10ML INJ IV SCH (20:58)
[2017-10-06] MEDS: FENTANYL CITR 100 MCG/2 ML IV PRN ×4 (00:03→18:50)
[2017-10-06] MEDS: PROMETHAZINE 25 MG/ML VIAL IV PRN ×4 (00:05→18:50)
[2017-10-06] MEDS: PIPER/TAZO/NS 3.375gm 3.375 GM/100 ML BAG IVPB SCH ×3 (00:05→17:25)
[2017-10-06] MEDS: METOPROLOL TAR 25 MG TAB PO SCH ×2 (05:18→17:26)
[2017-10-06] MEDS: PANTOPRAZOLE 40MG TABLET PO SCH (06:30)
[2017-10-06 08:18] VITALS: O2SAT 96
[2017-10-06] MEDS: SODIUM CHLORIDE 0.9% 10ML INJ IV SCH ×2 (09:00→22:12)
[2017-10-06] MEDS: JUVEN PACKET PO SCH ×2 (09:00→22:16)
[2017-10-06] MEDS: COLLAGENASE 30 GM OINTMENT TOP SCH (09:00)
[2017-10-06] MEDS: ENOXAPARIN 40 MG/0.4 ML SQ SCH (09:36)
[2017-10-06] MEDS: LINEZOLID 600 MG IVPB 600 MG/300 ML BAG IV SCH (09:36)
--- NOTE | 2017-10-06 09:50 | P.PN ---
Subjective Date of Service: 10/06/17 Primary Care Provider: Dr. Gamble; Surgery-Dr. Hartmann Chief Complaint: worsening left chronic osteomyelitis/wound Subjective: Doing well Physical Examination - Vital Signs Temperature: 97.1 F Blood Pressure: 132/59 Pulse: 78 Respirations: 18 Pulse Ox (%): 96 - Physical Exam General: Alert, In no apparent distress, Oriented x3, Cooperative HEENT: Atraumatic, Mucous membr. moist/pink Neck: Supple Respiratory: Clear to auscultation bilaterally, Normal air movement Cardiovascular: Normal pulses, Regular rate/rhythm Gastrointestinal: Normal bowel sounds, Soft and benign, Non-distended, No masses , No rebound, No guarding Integumentary: Other (Left foot bandaged) Neurological: Other (Paralysis below the waist with history of spina bifida) - Studies Medications List Reviewed: Yes Assessment & Plan - Problems (Diagnosis) (1) Poor social situation Current Visit: Yes Status: Chronic Plan: Patient with poor social situation that is affecting his care for his multiple ulcers. Patient now with osteomyelitis of the left calcaneus. Wound culture positive for Providencia Rettgeri. Adjustments to IV antibiotic therapy has been made. Patient currently on Zosyn 3.375 g IV every [address] line in place. Patient will need skilled placement to continue with IV antibiotic therapy for 6 weeks along with aggressive wound care. Await further recommendations from infectious disease. Social work consulted to help with transfer to skilled placement facility I will turn the service over to Dr. Johnson tomorrow. I will go over the plan of care with him. (2) Hypertension Onset Date: 05/17/17 Current Visit: No Status: Chronic Plan: Patient with history of hypertension. Patient doing well with medication. Will monitor and adjust appropriately. Qualifiers: Hypertension type: essential hypertension Qualified Code(s): I10 - Essential (primary) hypertension (3) Lymphedema Onset Date: 05/17/17 Current Visit: No Status: Chronic Plan: Patient with chronic lymphedema. Will monitor closely. (4) Stage III pressure ulcer of left ankle Current Visit: No Status: Acute Plan: MRI positive for osteomyelitis. Continue with above plan of care. (5) Chronic pain disorder Onset Date: 05/17/17 Current Visit: No Status: Chronic Plan: Will provide medication for pain. Will need to limit IV pain medication. (6) GERD (gastroesophageal reflux disease) Onset Date: 05/17/17 Current Visit: No Status: Chronic Plan: Will continue with PPI. Qualifiers: Esophagitis presence: esophagitis presence not specified Qualified Code(s) : K21.9 - Gastro-esophageal reflux disease without esophagitis (7) Chronic indwelling Alcantara catheter Onset Date: 05/17/17 Current Visit: No Status: Chronic Plan: Patient with chronic indwelling Alcantara catheter. Patient with suprapubic catheter. This needs to be replaced every month. Will need to check his last change. (8) Osteomyelitis Onset Date: 10/04/17 Current Visit: No Status: Acute Plan: MRI positive for left calcaneus osteomyelitis. Will continue with above plan of care. Qualifiers: Osteomyelitis type: chronic multifocal Osteomyelitis location: foot Laterality: left Qualified Code(s): M86.372 - Chronic multifocal osteomyelitis , left ankle and foot (9) Paraplegic spinal paralysis Onset Date: 02/03/16 Current Visit: No Status: Chronic Plan: Patient with history of spina bifida. Patient has paralysis to the lower extremities. Stable at this time. (10) Spina bifida Onset Date: 05/17/17 Current Visit: No Status: Chronic Plan: Patient with history of spina bifida. Patient with shunt in place. Qualifiers: Spinal region: lumbosacral Presence of hydrocephalus: unspecified hydrocephalus presence Qualified Code(s): Q05.7 - Lumbar spina bifida without hydrocephalus Discharge Plan: Other (Skilled placement facility) Plan to discharge in: 24 Hours Time Spent Managing Pts Care (In Minutes): 55
--- NOTE | 2017-10-06 16:25 | PN ---
Subjective: This is a 32-year-old male with significant history of spina bifida, has been seen by me in the past at [facility] and [facility]. The patient coming in with fever, sweating, and increased pain in his left foot for the last 2 days. Has a history of pressure wounds and osteom yelitis to the left foot. Feels somewhat better today. Past Medical History: Spina bifida, history of osteomyelitis, history of recurrent urinary tract inf ection, hydrocephalus, cranial to peritoneal shunt, migraine, chronic indwelling suprapubic catheter, paralysis to the lower extremity, shunt revision, cholecystectomy, foot surgery, bilateral hip surge ry, appendectomy. Social History: Nondrinker. Smokes every day. Family History: Noncontributory. Medications: Zosyn. See MARs for other medication. Allergies: INCLUDE LEVAQUIN, MORPHINE, SULFAMETHOXAZOLE, VANCOMYCIN, TORADOL, ZOFRAN, AMOXICILLIN, C IPRO, DOXYCYCLINE. Review of Systems: A 10-point review was performed. Physical Examination: General: This is a 32-year-old male, lying in bed, not in any acute cardiopulmonary distress. Vital Signs: Temperature 98.8, pulse 81, respirations 16, blood pressure 144/81. HEENT: Unremarkable. Neck: Supple. Lungs: Basal crackles. Heart: S1, S2. Regular. Abdomen: Soft, nontender. Bowel sounds positive. Extremities: Nonpitting 3+ edema. Left heel ulcer noted. MRI shows osteomyelitis of the calcaneous . Laboratory Data: Shows WBC 7.2, hemoglobin 14.2, platelets 314. Chemistry shows sodium 138, potassi um 4, chloride 108, bicarb 24, BUN 8, creatinine 0.67, glucose 87. Urine shows the patient has WBC m ore than 50. Chest x-ray shows no cardiopulmonary process. Assessment And Plan: Left heel wound with osteomyelitis of calcaneus, infected with multidrug-resist ant Providencia. Currently being treated with Zosyn. We will recommend to transfer the patient to [facility]. We will follow the patient closely. Thank you Dr. Gurrola for consult. NF/MODL Voice ID: [id number] Report ID: [id number]
[2017-10-07] MEDS: FENTANYL CITR 100 MCG/2 ML IV PRN ×2 (00:47→06:47)
[2017-10-07] MEDS: PROMETHAZINE 25 MG/ML VIAL IV PRN ×2 (00:48→06:47)
[2017-10-07] MEDS: PIPER/TAZO/NS 3.375gm 3.375 GM/100 ML BAG IVPB SCH ×3 (00:50→17:09)
[2017-10-07] MEDS: Oxycodone HCl/Acetaminophen 1 TAB TAB PO PRN ×2 (04:27→10:23)
[2017-10-07 04:43] LABS: Absolute Lymphocytes (CBC) 1.7 K/uL (0.7-4.9); Absolute Monocytes 0.7 K/uL (0.1-1.3); Absolute Neutrophil 4.4 K/uL (1.8-8.0); Basophils % 0.5 % (0-1.3); Eosinophils % 3.3 % (0-4.4); Hematocrit 42.6 % (39.6-49.0); Lymphocytes % 24.6 % (15.3-44.8); MCH 27.6 pg (27.0-35.0); MCV 82.8 fL (80-100); MPV 8.3 fL (7.6-11.3); Monocytes % 9.3 % (3.3-12.3); RBC Red Blood Cell Count 5.14 M/uL (4.33-5.43)
[2017-10-07 05:28] LABS: BUN Blood Urea Nitrogen 15 mg/dL (6-20); Bicarbonate 27 mEq/L (21-31); Glomerular Filtration Rate > 90 mL/min (=/>90); Glucose Level 126 mg/dL (65-120); Magnesium 1.8 mg/dL (1.8-2.5); Potassium 4.4 mEq/L (3.6-5.0); Sodium Level 142 mEq/L (135-145)
[2017-10-07] MEDS ORDERED: MAGNESIUM SULFATE 1 gm IVPB 1 GM/100 ML BAG IV ONE (05:37)
[2017-10-07] MEDS: METOPROLOL TAR 25 MG TAB PO SCH ×2 (06:46→17:10)
[2017-10-07] MEDS: PANTOPRAZOLE 40MG TABLET PO SCH ×2 (06:46→06:47)
[2017-10-07] MEDS: JUVEN PACKET PO SCH (09:00)
[2017-10-07] MEDS: SODIUM CHLORIDE 0.9% 10ML INJ IV SCH (09:00)
[2017-10-07] MEDS: COLLAGENASE 30 GM OINTMENT TOP SCH (09:00)
[2017-10-07] MEDS: ENOXAPARIN 40 MG/0.4 ML SQ SCH (10:10)
[2017-10-07] MEDS ORDERED: NA CHLORIDE 0.9% 250 ML ONE (10:28)
[2017-10-07 11:26] VITALS: BP 145/66
--- NOTE | 2017-10-07 15:06 | P.PN ---
Subjective Date of Service: 10/07/17 Primary Care Provider: Dr. Gamble; Surgery-Dr. Hartmann Chief Complaint: worsening left chronic osteomyelitis/wound The patient doing better and verbalizes no new complaint today Physical Examination - Vital Signs Temperature: 97.6 F Blood Pressure: 145/66 Pulse: 85 Respirations: 16 Pulse Ox (%): 92 - Physical Exam General: Alert, In no apparent distress HEENT: Atraumatic, PERRLA, EOMI Neck: Supple, JVD not distended Respiratory: Clear to auscultation bilaterally, Normal air movement Cardiovascular: Regular rate/rhythm, Normal S1 S2 Gastrointestinal: Normal bowel sounds, No tenderness Musculoskeletal: No tenderness, Clubbing, Contractures, Other (Open wound and cellulitis to the right lower extremity) Integumentary: No rashes Neurological: Normal speech, Normal tone, Normal affect Lymphatics: No axilla or inguinal lymphadenopathy - Studies Medications List Reviewed: Yes Assessment And Plan - Current Problems (Diagnosis) (1) Osteomyelitis Onset Date: 10/04/17 Current Visit: No Status: Acute Qualifiers: Osteomyelitis type: chronic multifocal Osteomyelitis location: foot Laterality: left Qualified Code(s): M86.372 - Chronic multifocal osteomyelitis , left ankle and foot (2) Pressure ulcer of right ankle, stage 3 Onset Date: 10/04/17 Current Visit: Yes Status: Acute (3) Poor social situation Current Visit: Yes Status: Chronic (4) Incontinence without sensory awareness Current Visit: No Status: Acute (5) Pressure ulcer of right leg, stage 3 Current Visit: No Status: Acute (6) Stage III pressure ulcer of left ankle Current Visit: No Status: Acute (7) Chronic indwelling Alcantara catheter Onset Date: 05/17/17 Current Visit: No Status: Chronic (8) Chronic pain disorder Onset Date: 05/17/17 Current Visit: No Status: Chronic (9) GERD (gastroesophageal reflux disease) Onset Date: 05/17/17 Current Visit: No Status: Chronic Qualifiers: Esophagitis presence: esophagitis presence not specified Qualified Code(s) : K21.9 - Gastro-esophageal reflux disease without esophagitis (10) Heel ulcer Onset Date: 05/17/17 Current Visit: No Status: Chronic Qualifiers: Laterality: left (11) History of Clostridium difficile colitis Current Visit: No Status: Chronic (12) Hypertension Onset Date: 05/17/17 Current Visit: No Status: Chronic Qualifiers: Hypertension type: essential hypertension Qualified Code(s): I10 - Essential (primary) hypertension (13) Lymphedema Onset Date: 05/17/17 Current Visit: No Status: Chronic (14) Spina bifida Onset Date: 05/17/17 Current Visit: No Status: Chronic Qualifiers: Spinal region: lumbosacral Presence of hydrocephalus: unspecified hydrocephalus presence Qualified Code(s): Q05.7 - Lumbar spina bifida without hydrocephalus (15) Stage III pressure ulcer Current Visit: No Status: Chronic (16) Stage IV pressure ulcer of heel Onset Date: 02/03/16 Current Visit: No Status: Chronic Qualifiers: Laterality: unspecified laterality Qualified Code(s): L89.604 - Pressure ulcer of unspecified heel, stage 4 (17) Cellulitis Onset Date: 05/17/17 Current Visit: No Status: Resolved Qualifiers: Site of cellulitis: extremity Site of cellulitis of extremity: lower extremity Laterality: right Qualified Code(s): L03.115 - Cellulitis of right lower limb - Plan --continue intravenous antibiotics Zosyn --cancer discharge [facility] of intravenous antibiotics --the long-term acute care was denied by the patient's insurance --discharge tomorrow
--- NOTE | 2017-10-07 17:09 | P.DS ---
Admission Date: 10/04/17 Discharge Date: 10/07/17 Primary Care Provider: Dr. Gamble; Surgery-Dr. Hartmann Disposition: TRANSFER TO SNF Discharge Condition: FAIR Reason for Admission: worsening left chronic osteomyelitis/wound - Problems (1) Osteomyelitis Onset Date: 10/04/17 Current Visit: No Status: Acute Qualifiers: Osteomyelitis type: chronic multifocal Osteomyelitis location: foot Laterality: left Qualified Code(s): M86.372 - Chronic multifocal osteomyelitis , left ankle and foot (2) Pressure ulcer of right ankle, stage 3 Onset Date: 10/04/17 Current Visit: Yes Status: Acute (3) Poor social situation Current Visit: Yes Status: Chronic (4) Incontinence without sensory awareness Current Visit: No Status: Acute (5) Pressure ulcer of right leg, stage 3 Current Visit: No Status: Acute (6) Stage III pressure ulcer of left ankle Current Visit: No Status: Acute (7) Chronic indwelling Alcantara catheter Onset Date: 05/17/17 Current Visit: No Status: Chronic (8) Chronic pain disorder Onset Date: 05/17/17 Current Visit: No Status: Chronic (9) GERD (gastroesophageal reflux disease) Onset Date: 05/17/17 Current Visit: No Status: Chronic Qualifiers: Esophagitis presence: esophagitis presence not specified Qualified Code(s) : K21.9 - Gastro-esophageal reflux disease without esophagitis (10) Heel ulcer Onset Date: 05/17/17 Current Visit: No Status: Chronic Qualifiers: Laterality: left (11) History of Clostridium difficile colitis Current Visit: No Status: Chronic (12) Hypertension Onset Date: 05/17/17 Current Visit: No Status: Chronic Qualifiers: Hypertension type: essential hypertension Qualified Code(s): I10 - Essential (primary) hypertension (13) Lymphedema Onset Date: 05/17/17 Current Visit: No Status: Chronic (14) Spina bifida Onset Date: 05/17/17 Current Visit: No Status: Chronic Qualifiers: Spinal region: lumbosacral Presence of hydrocephalus: unspecified hydrocephalus presence Qualified Code(s): Q05.7 - Lumbar spina bifida without hydrocephalus (15) Stage III pressure ulcer Current Visit: No Status: Chronic (16) Stage IV pressure ulcer of heel Onset Date: 02/03/16 Current Visit: No Status: Chronic Qualifiers: Laterality: unspecified laterality Qualified Code(s): L89.604 - Pressure ulcer of unspecified heel, stage 4 (17) Cellulitis Onset Date: 05/17/17 Current Visit: No Status: Resolved Qualifiers: Site of cellulitis: extremity Site of cellulitis of extremity: lower extremity Laterality: right Qualified Code(s): L03.115 - Cellulitis of right lower limb Brief History of Present Illness: Mr Feldman is a 32 years old male with history of chronic wound/osteomyelitis in his left foot, came to ED complaining of increasing pain, fever, sweating episodes since 2 days ago. He knows that his wound is worse because can smell foul odor since a couple of days. He is followed up by Dr Hartmann in the wound healing center, last time seen about 1 week ago, according to the patient. At arrival he was febrile 100.0 F, WBC within normal limits, normal lactate and procalcitonin. Bilirubin is elevated. Left foot wound has necrotic margins with foul odor and yellowish secretion. Hospital Course: The patient when admitted hospital because of osteomyelitis which is confirmed by MRI of the foot. The patient was start on intravenous antibiotic with Zosyn 3.375 mg IV every 8 hr without complications. The patient had a history of allergy to vancomycin. The patient is discharged to long term for continuing intravenous antibiotics for 6 weeks and laboratory monitoring for liver function and kidney function every week during the intraoral venous antibiotic therapy Vital Signs/Physical Exam: Temp Pulse Resp BP Pulse Ox 97.6 F 85 16 145/66 H 92 10/07/17 15:06 10/07/17 15:06 10/07/17 15:06 10/07/17 15:06 10/07/17 15:06 General: Alert, In no apparent distress HEENT: Atraumatic, PERRLA, EOMI Neck: Supple, JVD not distended Respiratory: Clear to auscultation bilaterally, Normal air movement Cardiovascular: Regular rate/rhythm, Normal S1 S2 Gastrointestinal: Normal bowel sounds, No tenderness Musculoskeletal: No tenderness Integumentary: No rashes Neurological: Normal speech, Normal tone, Normal affect Lymphatics: No axilla or inguinal lymphadenopathy Laboratory Data at Discharge: WBC 7.0 K/uL (4.3-10.9) 10/07/17 04:20 Hgb 14.2 g/dL (13.6-17.9) 10/07/17 04:20 Hct 42.6 % (39.6-49.0) 10/07/17 04:20 Plt Count 270 K/uL (152-406) 10/07/17 04:20 PT 13.0 SECONDS (9.5-12.5) H 10/03/17 21:49 INR 1.10 10/03/17 21:49 Sodium 142 mEq/L (135-145) 10/07/17 04:20 Potassium 4.4 mEq/L (3.6-5.0) 10/07/17 04:20 BUN 15 mg/dL (6-20) 10/07/17 04:20 Creatinine 0.83 mg/dL (0.61-1.24) 10/07/17 04:20 Glucose 126 mg/dL (65-120) H 10/07/17 04:20 Magnesium 1.8 mg/dL (1.8-2.5) 10/07/17 04:20 Total Bilirubin 1.9 mg/dL (0.3-1.2) H 10/03/17 21:49 AST 88 IU/L (10-42) H 10/03/17 21:49 ALT 135 IU/L (10-60) H 10/03/17 21:49 Alkaline Phosphatase 192 IU/L (42-121) H 10/03/17 21:49 B-Natriuretic Peptide 20 pg/ml (<=100) 10/03/17 21:49 Lipase 22 U/L (22-51) 10/03/17 21:49 Home Medications: Oxycodone HCl/Acetaminophen [Oxycodone-Acetaminophen 10-325] 1 tab PO QID Diet: ADA Activity: Ad dinorah Time spent managing pt's care (in minutes): 35
[2017-10-07 17:22] VITALS: TEMP 97.7
== END 2017-10-07 19:02 | DRG 539 ==
LOC: ER 20:24 → 2ND 10-04 02:08
PROVIDERS: ADMIT Internal Medicine; ATTEND Family Medicine
PROC: 02HV33Z Insertion of Infusion Device into Superior Vena Cava, Percutaneous Approach (ICD-10-PCS; principal; 2017-10-05)
DX: M86.172 Other acute osteomyelitis, left ankle and foot (principal); L89.513 Pressure ulcer of right ankle, stage 3; L89.893 Pressure ulcer of other site, stage 3; L89.523 Pressure ulcer of left ankle, stage 3; L89.624 Pressure ulcer of left heel, stage 4; Q05.2 Lumbar spina bifida with hydrocephalus; G82.20 Paraplegia, unspecified; L03.115 Cellulitis of right lower limb; R32 Unspecified urinary incontinence; I89.0 Lymphedema, not elsewhere classified; G89.4 Chronic pain syndrome; I10 Essential (primary) hypertension; K21.9 Gastro-esophageal reflux disease without esophagitis; F17.200 Nicotine dependence, unspecified, uncomplicated
CPT/HCPCS: 36415; 71045; 80048; 80076; 81003; 81015; 83605; 83690; 83735; 83880; 84145; 84484; 85025; 85610; 87040; 87070; 87077; 87186; 87205; 93005; 99285; J1650; J2543; J2550; J3010; J3475; J3590; J7030

== ENCOUNTER 2017-10-08 10:33 | Emergency (ER) | payer OTHER ==
--- OUTSIDE RECORDS SUMMARY | 2017-10-08 10:36 | XMS REPORT ---
:1985 Author Organization [facility] Address [address] [place] [address] [address]. [address] [place] [address] Care Team Providers Name Role Phone LAMAR GENAO Unavailable Unavailable Problems This patient has no known problems. Allergies, Adverse Reactions, Alerts This patient has no known allergies or adverse reactions. Medications This patient has no known medications. Results Test Description Test Time Test Comments Text Results Atomic Results Result Comments BLOOD CULTURE 2016-12-28 16:22:00 Test Item Value Reference Range Comments CULTURE (BEAKER) (test qumw=2983) No growth in 5 days BLOOD [id number] 16:22:00 Test Item Value Reference Range Comments CULTURE (BEAKER) (test gauo=0928) No growth in 5 days (MANUAL DIFFERENTIAL)2016-12-25 22:29:00 Test Item Value Reference Range Comments TOTAL COUNTED (BEAKER) (test cudi=8427) WBC MORPHOLOGY (BEAKER) (test aodj=710) Normal PLT MORPHOLOGY (BEAKER) (test btnj=857) Normal RBC MORPHOLOGY (BEAKER) (test urxf=392) Normal CBC W/PLT COUNT & AUTO [id number] 22:28:00 Test Item Value Reference Range Comments WHITE BLOOD CELL COUNT (BEAKER) (test nifk=562) 7.3 K/ L 4.0-10.0 RED BLOOD CELL COUNT (BEAKER) (test ytxd=285) 5.09 M/ L 4.20-5.80 HEMOGLOBIN (BEAKER) (test ciqa=270) 13.0 GM/DL 13.0-16.8 HEMATOCRIT (BEAKER) (test jzjy=094) 42.3 % 40.0-50.0 MEAN CORPUSCULAR VOLUME (BEAKER) (test byow=826) 83.0 fL 82.0-98.0 MEAN CORPUSCULAR HEMOGLOBIN (BEAKER) (test 25.6 pg 27.0-33.0 zraz=312) MEAN CORPUSCULAR HEMOGLOBIN CONC (BEAKER) (test 30.8 GM/DL 32.0-36.0 xqec=281) RED CELL DISTRIBUTION WIDTH (BEAKER) (test 18.0 % 10.3-14.2 rame=097) PLATELET COUNT (BEAKER) (test ohwt=198) 331 K/CU MM 150-430 MEAN PLATELET VOLUME (BEAKER) (test gvtu=853) 8.5 fL 6.5-10.5 NUCLEATED RED BLOOD CELLS (BEAKER) (test 0 /100 WBC 0-0 sbxg=643) NEUTROPHILS RELATIVE PERCENT (BEAKER) (test 65 % bawb=591) LYMPHOCYTES RELATIVE PERCENT (BEAKER) (test 23 % gqhg=845) MONOCYTES RELATIVE PERCENT (BEAKER) (test 8 % lazz=744) EOSINOPHILS RELATIVE PERCENT (BEAKER) (test 3 % kfvv=693) BASOPHILS RELATIVE PERCENT (BEAKER) (test 1 % apav=657) NEUTROPHILS ABSOLUTE COUNT (BEAKER) (test 4.75 K/ L 1.80-8.00 agar=674) LYMPHOCYTES ABSOLUTE COUNT (BEAKER) (test 1.68 K/ L 1.48-4.50 pquu=920) MONOCYTES ABSOLUTE COUNT (BEAKER) (test 0.55 K/ L 0.00-1.30 emrx=025) EOSINOPHILS ABSOLUTE COUNT (BEAKER) (test 0.24 K/ L 0.00-0.50 wzwm=071) BASOPHILS ABSOLUTE COUNT (BEAKER) (test 0.05 K/ L 0.00-0.20 baua=840) [id number] METABOLIC [id number] 11:11:00 Test Item Value Reference Range Comments SODIUM (BEAKER) (test 138 meq/L 136-145 vhtq=470) POTASSIUM (BEAKER) (test 4.0 meq/L 3.5-5.1 qvea=497) CHLORIDE (BEAKER) (test 108 meq/L 98-107 nujx=506) CO2 (BEAKER) (test 23 meq/L 22-29 fijj=394) BLOOD UREA NITROGEN 11 mg/dL 7-21 (BEAKER) (test fbxo=691) CREATININE (BEAKER) (test 0.74 mg/dL 0.57-1.25 mfpy=257) GLUCOSE RANDOM (BEAKER) 124 mg/dL 70-105 (test xixk=815) CALCIUM (BEAKER) (test 8.9 mg/dL 8.4-10.2 sagr=697) EGFR (BEAKER) (test 150 mL/min/1.73 sq m ESTIMATED GFR IS NOT tees=4225) ACCURATE CREATININE CLEARANCE IN PREDICTING GLOMERULAR FILTRATION RATE. ESTIMATED GFR IS NOT APPLICABLE FOR DIALYSIS PATIENTS. URINE [id number] 09:56:00 Test Item Value Reference Range Comments CULTURE (BEAKER) (test <10,000 col/mL skin marilee jqav=6568) COMPREHENSIVE METABOLIC [id number] 08:49:00 Test Item Value Reference Range Comments TOTAL PROTEIN (BEAKER) 7.3 gm/dL 6.0-8.3 (test blov=335) ALBUMIN (BEAKER) (test 3.3 g/dL 3.5-5.0 agcd=7002) ALKALINE PHOSPHATASE 89 U/L 40-150 (BEAKER) (test xyoz=266) BILIRUBIN TOTAL (BEAKER) 1.4 mg/dL 0.2-1.2 (test ibta=484) SODIUM (BEAKER) (test 137 meq/L 136-145 ekor=457) POTASSIUM (BEAKER) (test 3.7 meq/L 3.5-5.1 omfk=688) CHLORIDE (BEAKER) (test 108 meq/L 98-107 zdfp=687) CO2 (BEAKER) (test 17 meq/L 22-29 khtp=539) BLOOD UREA NITROGEN 12 mg/dL 7-21 (BEAKER) (test cvqc=071) CREATININE (BEAKER) (test 0.78 mg/dL 0.57-1.25 nlvz=619) GLUCOSE RANDOM (BEAKER) 119 mg/dL 70-105 (test chyx=153) CALCIUM (BEAKER) (test 8.6 mg/dL 8.4-10.2 vznd=127) AST (SGOT) (BEAKER) (test 13 U/L 5-34 woee=463) ALT (SGPT) (BEAKER) (test 28 U/L 6-55 cesq=616) EGFR (BEAKER) (test 141 mL/min/1.73 sq ESTIMATED GFR IS NOT uery=4943) m ACCURATE CREATININE CLEARANCE IN PREDICTING GLOMERULAR FILTRATION RATE. ESTIMATED GFR IS NOT APPLICABLE FOR DIALYSIS PATIENTS. CBC W/PLT COUNT & AUTO [id number] 08:46:00 Test Item Value Reference Range Comments WHITE BLOOD CELL COUNT (BEAKER) (test azqh=807) 9.4 K/ L 4.0-10.0 RED BLOOD CELL COUNT (BEAKER) (test miez=256) 4.79 M/ L 4.20-5.80 HEMOGLOBIN (BEAKER) (test wfiw=139) 12.8 GM/DL 13.0-16.8 HEMATOCRIT (BEAKER) (test ujpo=161) 40.0 % 40.0-50.0 MEAN CORPUSCULAR VOLUME (BEAKER) (test mozm=034) 83.4 fL 82.0-98.0 MEAN CORPUSCULAR HEMOGLOBIN (BEAKER) (test 26.7 pg 27.0-33.0 qcpg=280) MEAN CORPUSCULAR HEMOGLOBIN CONC (BEAKER) (test 32.0 GM/DL 32.0-36.0 tzyh=706) RED CELL DISTRIBUTION WIDTH (BEAKER) (test 18.2 % 10.3-14.2 ghqy=810) PLATELET COUNT (BEAKER) (test wcpl=547) 313 K/CU MM 150-430 MEAN PLATELET VOLUME (BEAKER) (test xkpa=087) 8.6 fL 6.5-10.5 NUCLEATED RED BLOOD CELLS (BEAKER) (test 0 /100 WBC 0-0 dwny=999) NEUTROPHILS RELATIVE PERCENT (BEAKER) (test 70 % kpyh=164) LYMPHOCYTES RELATIVE PERCENT (BEAKER) (test 16 % bhvt=204) MONOCYTES RELATIVE PERCENT (BEAKER) (test 12 % wrba=205) EOSINOPHILS RELATIVE PERCENT (BEAKER) (test 1 % xivc=341) BASOPHILS RELATIVE PERCENT (BEAKER) (test 1 % funo=887) NEUTROPHILS ABSOLUTE COUNT (BEAKER) (test 6.54 K/ L 1.80-8.00 avtj=263) LYMPHOCYTES ABSOLUTE COUNT (BEAKER) (test 1.50 K/ L 1.48-4.50 zyfa=963) MONOCYTES ABSOLUTE COUNT (BEAKER) (test 1.13 K/ L 0.00-1.30 mair=570) EOSINOPHILS ABSOLUTE COUNT (BEAKER) (test 0.13 K/ L 0.00-0.50 nszn=317) BASOPHILS ABSOLUTE COUNT (BEAKER) (test 0.06 K/ L 0.00-0.20 tsjf=402) 0.00URINALYSIS W/ [id number] 20:36:00 Test Item Value Reference Range Comments COLOR (BEAKER) (test tcrz=396) Yellow CLARITY (BEAKER) (test ltfj=501) Hazy SPECIFIC GRAVITY UA (BEAKER) (test zvof=719) 1.012 1.001-1.035 PH UA (BEAKER) (test htbj=713) 5.5 5.0-8.0 PROTEIN UA (BEAKER) (test xnwx=959) 100 mg/dL Negative GLUCOSE UA (BEAKER) (test xswz=179) Negative Negative KETONES UA (BEAKER) (test ecrh=609) Negative Negative BILIRUBIN UA (BEAKER) (test gwnh=404) Negative Negative BLOOD UA (BEAKER) (test fxan=955) Moderate Negative NITRITE UA (BEAKER) (test tzsd=374) Negative Negative LEUKOCYTE ESTERASE UA (BEAKER) (test qopi=741) Large Negative UROBILINOGEN UA (BEAKER) (test dncp=096) 3.0 mg/dL 0.2-1.0 RBC UA (BEAKER) (test rwix=800) 19 /HPF WBC UA (BEAKER) (test jogm=650) 182 /HPF SOURCE(BEAKER) (test iyzo=5812) BASIC METABOLIC [id number] 17:00:00 Test Item Value Reference Range Comments SODIUM (BEAKER) (test 140 meq/L 136-145 oqim=575) POTASSIUM (BEAKER) (test 3.7 meq/L 3.5-5.1 nazc=243) CHLORIDE (BEAKER) (test 112 meq/L 98-107 csdh=523) CO2 (BEAKER) (test 17 meq/L 22-29 dems=158) BLOOD UREA NITROGEN 23 mg/dL 7-21 (BEAKER) (test zdzj=939) CREATININE (BEAKER) (test 1.00 mg/dL 0.57-1.25 qgxj=939) GLUCOSE RANDOM (BEAKER) 102 mg/dL 70-105 (test rbco=983) CALCIUM (BEAKER) (test 8.7 mg/dL 8.4-10.2 lxwm=601) EGFR (BEAKER) (test 106 mL/min/1.73 sq m ESTIMATED GFR IS NOT bdxl=8868) ACCURATE CREATININE CLEARANCE IN PREDICTING GLOMERULAR FILTRATION RATE. ESTIMATED GFR IS NOT APPLICABLE FOR DIALYSIS PATIENTS. Specimen slightly ictericCBC W/PLT COUNT & AUTO [id number] 12:18 :00 Test Item Value Reference Range Comments WHITE BLOOD CELL COUNT (BEAKER) (test ondn=253) 16.4 K/ L 4.0-10.0 RED BLOOD CELL COUNT (BEAKER) (test gvxp=129) 5.22 M/ L 4.20-5.80 HEMOGLOBIN (BEAKER) (test bkev=210) 14.4 GM/DL 13.0-16.8 HEMATOCRIT (BEAKER) (test bhvn=841) 42.9 % 40.0-50.0 MEAN CORPUSCULAR VOLUME (BEAKER) (test ceuy=106) 82.2 fL 82.0-98.0 MEAN CORPUSCULAR HEMOGLOBIN (BEAKER) (test 27.5 pg 27.0-33.0 ztlh=750) MEAN CORPUSCULAR HEMOGLOBIN CONC (BEAKER) (test 33.5 GM/DL 32.0-36.0 fxns=546) RED CELL DISTRIBUTION WIDTH (BEAKER) (test 16.2 % 10.3-14.2 lnsp=709) PLATELET COUNT (BEAKER) (test oixp=650) 329 K/CU MM 150-430 MEAN PLATELET VOLUME (BEAKER) (test goet=529) 8.2 fL 6.5-10.5 NUCLEATED RED BLOOD CELLS (BEAKER) (test 0 /100 WBC 0-0 njiw=789) NEUTROPHILS RELATIVE PERCENT (BEAKER) (test 83 % vdwz=157) LYMPHOCYTES RELATIVE PERCENT (BEAKER) (test 7 % wtxt=344) MONOCYTES RELATIVE PERCENT (BEAKER) (test 9 % wqzw=299) EOSINOPHILS RELATIVE PERCENT (BEAKER) (test 0 % buun=041) BASOPHILS RELATIVE PERCENT (BEAKER) (test 0 % evob=984) NEUTROPHILS ABSOLUTE COUNT (BEAKER) (test 1.62 K/ L 1.80-8.00 qqyy=393) LYMPHOCYTES ABSOLUTE COUNT (BEAKER) (test 1.15 K/ L 1.48-4.50 khml=916) MONOCYTES ABSOLUTE COUNT (BEAKER) (test 1.56 K/ L 0.00-1.30 qemv=509) EOSINOPHILS ABSOLUTE COUNT (BEAKER) (test 0.01 K/ L 0.00-0.50 rzhz=738) BASOPHILS ABSOLUTE COUNT (BEAKER) (test 0.02 K/ L 0.00-0.20 usjz=709) (MANUAL DIFFERENTIAL)2016-12-23 12:18:00 Test Item Value Reference Range Comments TOTAL COUNTED (BEAKER) (test oemn=0678) WBC MORPHOLOGY (BEAKER) (test mohc=259) Normal PLT MORPHOLOGY (BEAKER) (test wrej=179) Normal RBC MORPHOLOGY (BEAKER) (test llqa=025) Normal
[2017-10-08] MEDS ORDERED: FENTANYL CITR 100 MCG/2 ML ONE (11:17)
[2017-10-08] MEDS ORDERED: FAMOTIDINE 20 MG/2 ML VIAL IV ONE (11:18)
[2017-10-08 11:21] LABS: Absolute Lymphocytes (CBC) 2.1 K/uL (0.7-4.9); Absolute Monocytes 0.8 K/uL (0.1-1.3); Absolute Neutrophil 7.9 K/uL (1.8-8.0); Basophils % 1.1 % (0-1.3); Hematocrit 47.1 % (39.6-49.0); Lymphocytes % 18.6 % (15.3-44.8); MCH 27.3 pg (27.0-35.0); MCV 83.3 fL (80-100); Monocytes % 7.1 % (3.3-12.3); RBC Red Blood Cell Count 5.65 M/uL (4.33-5.43)
[2017-10-08 11:26] LABS: Protime INR 1.04
[2017-10-08] MEDS ORDERED: PROMETHAZINE 25 MG/ML VIAL ONE (11:31)
[2017-10-08 11:40] LABS: Bicarbonate 27 mEq/L (21-31); Glucose Level 87 mg/dL (65-120); Potassium 5.4 mEq/L (3.6-5.0); Sodium Level 136 mEq/L (135-145)
[2017-10-08 11:46] LABS: ALT/SGPT 53 IU/L (10-60); AST/SGOT 42 IU/L (10-42); Albumin 3.6 g/dL (3.2-5.5); Alkaline Phosphatase 113 IU/L (42-121); BUN Blood Urea Nitrogen 20 mg/dL (6-20); Bilirubin Direct 0.2 mg/dL (0-0.2); Bilirubin Total 0.8 mg/dL (0.3-1.2); Magnesium 1.9 mg/dL (1.8-2.5); Protein, Total 8.3 g/dL (6.0-8.3)
[2017-10-08] MEDS ORDERED: NA CHLORIDE 0.9% 1,000 ML ONE (13:32)
[2017-10-08] MEDS ORDERED: SOD POLYSTYREN SUL 15 GM/60 ML UCUP ONE (13:32)
[2017-10-08] MEDS ORDERED: PIPER/TAZO/NS 3.375gm 3.375 GM/100 ML BAG ONE (13:58)
--- NOTE | 2017-10-08 15:16 | EDPHYS ---
Physician Documentation [facility] Name: Roland Feldman Jr Age: 32 yrs Sex: Male : 1985 Arrival Date: 10/08/2017 Time: 10:38 Bed 6 Private MD: ED Physician Rah Dominguez HPI: 10/08 10:45 This 32 yrs old Black Male presents to ER via EMS with complaints of Chest Pain, Nausea.cp 10:45 The patient or guardian reports chest pain that is located primarily in the anterior cp chest wall. Onset: The symptoms/episode began/occurred just prior to arrival. The pain does not radiate. 10:45 Associated signs and symptoms: Pertinent positives: chest pain, vomiting, nausea. cp 10:45 Associated signs and symptoms: Pertinent negatives: cough, diaphoresis, shortness of cp breath, diarrhea. The chest pain is described as sharp. Duration: The patient or guardian reports a single episode, that is still ongoing, and unchanged. Historical: - Allergies: 10:50 Amoxicillin; sg 10:50 Bactrim; sg 10:50 Ciprofloxacin; sg 10:50 CLAVULANIC ACID; sg 10:50 Doxycycline; sg 10:50 Levofloxacin; sg 10:50 Morphine; sg 10:50 sulfamethoxazole; sg 10:50 Toradol; sg 10:50 TRIMETHOPRIM; sg 10:50 Vancomycin; sg 10:50 Zofran; sg - Home Meds: 10:50 Percocet 10-325 mg Oral tab 1 tab twice a day [Active]; sg - PMHx: 10:50 Asthma; Cerebral Palsy; decubitus ulcers on feet; Hydrocephalus; spina bifida; sg - PSHx: 10:50 Cholecystectomy; Hydrocephalus Shunt; back sx; hip sx; left heel sx; sg - Immunization history:: Adult Immunizations up to date. - Social history:: Smoking status: Patient/guardian denies using tobacco. ROS: 10:55 Eyes: Negative for injury, pain, redness, and discharge, ENT: Negative for injury, cp pain, and discharge. 10:55 Constitutional: Negative for body aches, chills, fever, poor PO intake. 10:55 Cardiovascular: Positive for chest pain, Negative for palpitations. 10:55 Respiratory: Negative for cough, wheezing. 10:55 Abdomen/GI: Positive for nausea, Negative for diarrhea, constipation. 10:55 MS/extremity: Positive for pain, of the right leg and left leg. 10:55 Neuro: Negative for altered mental status, headache, weakness. Exam: 10:55 ECG was reviewed by the Attending Physician. cp 11:00 Constitutional: The patient appears in no acute distress, alert, awake, cp non-diaphoretic, non-toxic, well developed, well nourished, obese. 11:00 Head/Face: Normocephalic, atraumatic. Eyes: Pupils equal round and reactive to light, cp extra-ocular motions intact. Lids and lashes normal. Conjunctiva and sclera are non-icteric and not injected. Cornea within normal limits. Periorbital areas with no swelling, redness, or edema. ENT: Nares patent. No nasal discharge, no septal abnormalities noted. Tympanic membranes are normal and external auditory canals are clear. Oropharynx with no redness, swelling, or masses, exudates, or evidence of obstruction, uvula midline. Mucous membranes moist. 11:00 Neck: External neck: is normal, ROM/movement: is normal, is supple, without pain, no cp range of motions limitations, no meningismus, no nuchal rigidity. 11:00 Chest/axilla: Inspection: normal, Palpation: is normal, no crepitus, no tenderness. 11:00 Cardiovascular: Rate: normal, Rhythm: regular, Pulses: Pulses are 2+ in right radial artery and left radial artery. 11:00 Respiratory: the patient does not display signs of respiratory distress, Respirations: cp normal, no use of accessory muscles, no retractions, no splinting, no tachypnea, labored breathing, is not present, Breath sounds: are clear throughout, no decreased breath sounds, no stridor, no wheezing. 11:00 Abdomen/GI: Inspection: obese Bowel sounds: active, all quadrants, Palpation: abdomen is soft and non-tender, in all quadrants, rebound tenderness, is not appreciated, voluntary guarding, is not appreciated, involuntary guarding, is not appreciated. 11:00 Skin: chronic open wounds bilateral lower limbs. 11:00 Neuro: Orientation: to person, place \T\ time. Mentation: is normal. 14:38 ECG was reviewed by the Attending Physician. cp Vital Signs: 10:50 BP 135 / 92; Pulse 88 MON; Resp 16 S; Temp 98.2(O); Pulse Ox 97% on R/A; Pain 10/10; sg 12:30 BP 137 / 86; Pulse 76; Resp 16 S; Temp 98.2; Pulse Ox 98% on R/A; jl7 14:00 BP 136 / 85; Pulse 80; Resp 16; Pulse Ox 99% on R/A; sg 15:30 BP 134 / 72; Pulse 88; Resp 17; Pulse Ox 99% on R/A; sg 17:00 BP 132 / 80; Pulse 87; Resp 17; Temp 98.2; Pulse Ox 100% on R/A; Pain 7/10; sg [place] Coma Score: 17:00 Eye Response: spontaneous(4). Verbal Response: oriented(5). Motor Response: obeys sg commands(6). Total: 15. MDM: 10:40 Patient medically screened. cp 15:10 Data reviewed: vital signs, nurses notes, lab test result(s), EKG. cp 15:10 Test interpretation: by ED physician or midlevel provider: ECG. Counseling: I had a cp detailed discussion with the patient and/or guardian regarding: the historical points, exam findings, and any diagnostic results supporting the discharge/admit diagnosis, lab results, to return to the emergency department if symptoms worsen or persist or if there are any questions or concerns that arise at home. 15:10 Special discussion: Based on the patient's history, exam, and Dx evaluation, there is cp no indication for emergent intervention or inpatient Tx. It is understood by the patient/guardian that if the Sx's persist or worsen they need to return immediately for re-evaluation. 15:10 Response to treatment: the patient's symptoms have markedly improved after treatment. cp 10/08 10:43 Order name: Basic Metabolic Panel cp 10/08 10:43 Order name: CBC with Diff; Complete Time: 12: cp 10/08 12:27 Interpretation: Normal except: WBC 11.0; RBC 5.65; PLT 356; RDW 17.3. cp 10/08 10:43 Order name: LFT's cp 10/08 10:43 Order name: Magnesium cp 10/08 10:43 Order name: PT-INR; Complete Time: 12:27 cp 10/08 10:43 Order name: Ptt, Activated; Complete Time: 12:27 cp 10/08 10:43 Order name: Troponin (emerg Dept Use Only); Complete Time: 12:27 cp 10/08 10:43 Order name: Basic Metabolic Panel; Complete Time: 12:27 EDMS 10/08 12:27 Interpretation: Normal except: K 5.4. cp 10/08 10:43 Order name: Liver (Hepatic) Function; Complete Time: 12:27 EDMS 10/08 10:43 Order name: Magnesium; Complete Time: 12:27 EDMS 10/08 14:06 Order name: Troponin I cp 10/08 14:06 Order name: Potassium; Complete Time: 15:08 cp 10/08 15:08 Interpretation: Within normal limits: K 4.6. cp 10/08 14:07 Order name: Troponin I; Complete Time: 15:08 EDMS 10/08 15:08 Interpretation: TROP < 0.03; Reviewed. 10/08 10:43 Order name: EKG; Complete Time: 10:43 cp 10/08 10:43 Order name: EKG - Nurse/Tech; Complete Time: 11:22 cp 10/08 10:43 Order name: Cardiac monitoring; Complete Time: 10:53 cp 10/08 10:43 Order name: IV Saline Lock; Complete Time: 10:53 cp 10/08 10:43 Order name: Labs collected and sent; Complete Time: 10:53 cp 10/08 10:43 Order name: O2 Per Protocol; Complete Time: 10:53 cp 10/08 10:43 Order name: O2 Sat Monitoring; Complete Time: 10:54 cp 10/08 14:06 Order name: EKG; Complete Time: 14:07 cp 10/08 14:06 Order name: EKG - Nurse/Tech; Complete Time: 15:03 cp EC:55 Rate is 90 beats/min. OR interval is normal. QRS interval is normal. QT interval is cp normal. T waves are Inverted in lead III. No ST changes noted. Interpreted by me. Reviewed by me. 14:38 Rate is 83 beats/min. Rhythm is regular. OR interval is normal. QRS interval is normal. cp QT interval is normal. No ST changes noted. Interpreted by me. Reviewed by me. Administered Medications: 11:00 Drug: fentaNYL (PF) 25 mcg Route: IVP; Site: PICC; sg 11:30 Follow up: Response: No adverse reaction; Pain is decreased sg 11:08 Not Given (Physician Discretion): Zofran 4 mg IVP once; over 2 minutes cp 11:10 Drug: Pepcid 20 mg Route: IVP; Site: PICC; sg 11:30 Follow up: Response: No adverse reaction sg 11:18 Drug: Phenergan 25 mg Route: IVP; Site: PICC; sg 12:30 Follow up: Response: No adverse reaction; Nausea is decreased sg 13:18 Drug: NS 0.9% 1000 ml Route: IV; Rate: 1 bolus; Site: PICC; sg 13:50 Drug: Zosyn 3.375 grams Route: IVPB; Infused Over: 60 mins; Site: PICC; sg 15:35 Follow up: Response: No adverse reaction; IV Status: Completed infusion sg 15:07 Not Given (Physician Discretion; ordered to hold med dt repeat potassium draw): sg Kayexalate 30 grams PO once 15:35 Drug: Hydrocodone-Acetaminophen (7.5 mg-325 mg) 1 tabs Route: PO; sg Disposition: 17:11 Co-signature as Attending Physician, Rah Dominguez MD. rn Disposition: 10/08/17 15:16 Discharged to Home. Impression: Other chest pain, Nausea and vomiting. - Condition is Stable. - Discharge Instructions: Nonspecific Chest Pain, Nausea and Vomiting. - Prescriptions for Pepcid 20 mg Oral Tablet - take 1 tablet by ORAL route every 12 hours for 10 days; 20 tablet. Phenergan 25 mg Rectal Suppository - insert 1 suppository by RECTAL route every 6 hours As needed; 12 suppository. promethazine 25 mg Oral Tablet - take 1 tablet by ORAL route every 6 hours As needed; 20 tablet. - Medication Reconciliation Form, Thank You Letter, Antibiotic Education, Prescription Opioid Use form. - Follow up: Private Physician; When: 1 - 2 days; Reason: Recheck today's complaints. - Problem is new. - Symptoms have improved. Signatures: Dispatcher [employer] Kiran Judd, RN RN Rah Guido MD MD rn Page, Corey, PA PA cp
--- NOTE | 2017-10-08 15:16 | ER ---
Nurse's Notes [facility] Name: Roland Feldman Jr Age: 32 yrs Sex: Male : 1985 Arrival Date: 10/08/2017 Time: 10:38 Bed 6 Private MD: Diagnosis: Other chest pain;Nausea and vomiting Presentation: 10/08 10:47 Care prior to arrival: None. 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 Transition of care: patient was received from another setting of care (long-term care facility), [facility]. Onset of symptoms was October 08, 2017. Care prior to arrival: Medication(s) given: ASA, 81 mg, x 4. 10:50 Method Of Arrival: EMS: [facility] iw Historical: - Allergies: 10:50 Amoxicillin; sg 10:50 Bactrim; sg 10:50 Ciprofloxacin; sg 10:50 CLAVULANIC ACID; sg 10:50 Doxycycline; sg 10:50 Levofloxacin; sg 10:50 Morphine; sg 10:50 sulfamethoxazole; sg 10:50 Toradol; sg 10:50 TRIMETHOPRIM; sg 10:50 Vancomycin; sg 10:50 Zofran; sg - Home Meds: 10:50 Percocet 10-325 mg Oral tab 1 tab twice a day [Active]; sg - PMHx: 10:50 Asthma; Cerebral Palsy; decubitus ulcers on feet; Hydrocephalus; spina bifida; sg - PSHx: 10:50 Cholecystectomy; Hydrocephalus Shunt; back sx; hip sx; left heel sx; sg - Immunization history:: Adult Immunizations up to date. - Social history:: Smoking status: Patient/guardian denies using tobacco. Screenin:20 Abuse screen: Denies threats or abuse. Denies injuries from another. Nutritional sg screening: No deficits noted. Tuberculosis screening: No symptoms or risk factors identified. Never had TB. Fall Risk None identified. Assessment: 11:20 Reassessment: Patient appears in no apparent distress at this time. General: Appears in sg no apparent distress. comfortable, obese, unkempt, well nourished, Behavior is calm, cooperative, appropriate for age. Pain: Complains of pain in chest, right foot and left foot Pain does not radiate. Neuro: Level of Consciousness is awake, alert, obeys commands, Oriented to person, place, time, University Relations Vice President are equal bilaterally Moves all extremities. Speech is normal. Cardiovascular: Heart tones S1 S2 present Capillary refill is brisk in bilateral fingers Patient's skin is warm and dry. Chest pain is described as vague, quality is pressure. Respiratory: Airway is patent Respiratory effort is even, unlabored, Respiratory pattern is regular, symmetrical, Breath sounds are clear. GI: Abdomen is round obese, Bowel sounds present X 4 quads. Reports nausea. : No signs and/or symptoms were reported regarding the genitourinary system. EENT: No signs and/or symptoms were reported regarding the EENT system. Derm: Skin is normal, Skin temperature is hot BLE Wound noted right foot and left foot. Musculoskeletal: No signs and/or symptoms reported regarding the musculoskeletal system. 12:30 Reassessment: Patient appears in no apparent distress at this time. Patient and/or sg family updated on plan of care and expected duration. Pain level reassessed. Patient is alert, oriented x 3, equal unlabored respirations, skin warm/dry/pink. awaiting lab results at this time, pt stated understanding. 13:20 Reassessment: Patient appears in no apparent distress at this time. Patient and/or sg family updated on plan of care and expected duration. Pain level reassessed. Patient is alert, oriented x 3, equal unlabored respirations, skin warm/dry/pink. Patient states symptoms have not improved. 14:20 Reassessment: Patient appears in no apparent distress at this time. Patient and/or sg family updated on plan of care and expected duration. Pain level reassessed. Patient is alert, oriented x 3, equal unlabored respirations, skin warm/dry/pink. pt requesting more pain medication and more nausea medication, Natanael GARCIA notified, no new orders received at this time, pt updated, will continue to monitor Patient states symptoms have not improved. 15:00 Reassessment: Patient appears in no apparent distress at this time. Patient is alert, sg oriented x 3, equal unlabored respirations, skin warm/dry/pink. Natanael GARCIA at bedside updating pt on results, discharge instructions provided, discharge orders received, pt to be dc back to [facility]. pt stated understanding Patient states symptoms have not improved. 15:30 Reassessment: Patient appears in no apparent distress at this time. Patient and/or sg family updated on plan of care and expected duration. Pain level reassessed. pt requesting a diet tray be ordered, pt states " well josé miguel already missed lunch at [facility], so i dont know what im going to eat. It'll be much later before i eat again." pt instructed that with is nausea and vomiting complaints it may not be dixon to eat. pt states " im pretty sure i can keep it down." pt updated awaiting transport back to facility, pt stated understanding, Natanael GARCIA notified pt request for food, awaiting orders at this time. 15:56 Reassessment: report given to nurse Uiprian at [facility], will arrange iw for transportation back to facility. Vital Signs: 10:50 BP 135 / 92; Pulse 88 MON; Resp 16 S; Temp 98.2(O); Pulse Ox 97% on R/A; Pain 10/10; sg 12:30 BP 137 / 86; Pulse 76; Resp 16 S; Temp 98.2; Pulse Ox 98% on R/A; jl7 14:00 BP 136 / 85; Pulse 80; Resp 16; Pulse Ox 99% on R/A; sg 15:30 BP 134 / 72; Pulse 88; Resp 17; Pulse Ox 99% on R/A; sg 17:00 BP 132 / 80; Pulse 87; Resp 17; Temp 98.2; Pulse Ox 100% on R/A; Pain 7/10; sg [place] Coma Score: 17:00 Eye Response: spontaneous(4). Verbal Response: oriented(5). Motor Response: obeys sg commands(6). Total: 15. ED Course: 10:38 Patient arrived in ED. iw 10:40 Clifton Cannon PA is PHCP. cp 10:40 Rah Dominguez MD is Attending Physician. cp 10:47 Kiran Cabrera, NAIF is Primary Nurse. sg 10:48 Triage completed. sg 10:51 Arm band placed on. sg 11:20 Patient has correct armband on for positive identification. groundwater monitoring technician on. Pulse sg ox on. NIBP on. Warm blanket given. Head of bed elevated. 11:20 No provider procedures requiring assistance completed. Accessed PICC line. Clean \\T\\ dry. sg Dressing loose. Good blood return. Flushes easily. Patient maintains SpO2 saturation greater than 95% on room air. 14:32 Repeat lab(s) drawn. by me, sent to lab. iw 14:45 EKG done, by carpet cleaning technician. reviewed by Rah Dominguez MD. tc 17:00 Patient did not have IV access during this emergency room visit. sg Administered Medications: 11:00 Drug: fentaNYL (PF) 25 mcg Route: IVP; Site: PICC; sg 11:30 Follow up: Response: No adverse reaction; Pain is decreased sg 11:08 Not Given (Physician Discretion): Zofran 4 mg IVP once; over 2 minutes cp 11:10 Drug: Pepcid 20 mg Route: IVP; Site: PICC; sg 11:30 Follow up: Response: No adverse reaction sg 11:18 Drug: Phenergan 25 mg Route: IVP; Site: PICC; sg 12:30 Follow up: Response: No adverse reaction; Nausea is decreased sg 13:18 Drug: NS 0.9% 1000 ml Route: IV; Rate: 1 bolus; Site: PICC; sg 13:50 Drug: Zosyn 3.375 grams Route: IVPB; Infused Over: 60 mins; Site: PICC; sg 15:35 Follow up: Response: No adverse reaction; IV Status: Completed infusion sg 15:07 Not Given (Physician Discretion; ordered to hold med dt repeat potassium draw): sg Kayexalate 30 grams PO once 15:35 Drug: Hydrocodone-Acetaminophen (7.5 mg-325 mg) 1 tabs Route: PO; sg Output: 13:00 Gastric: 200ml (Emesis); Total: 200ml. sg Outcome: 15:16 Discharge ordered by . cp 17:00 Discharged to half-way. Transfer form completed. sg 17:00 Condition: good 17:00 Instructed on discharge instructions, medication usage, safety practices, wound care, Demonstrated understanding of instructions, follow-up care, medications, wound care, Prescriptions given X 3. 17:05 Patient left the ED. sg Signatures: Kiran Cabrera RN RN sg Williams, Irene, RN RN iw Callis, Tiffany, plate drying machine tender EKG Ttc Clifton Cannon PA PA cp Leal, Jahala, RN RN jl7 Corrections: (The following items were deleted from the chart) 15:04 13:40 Kayexalate 30 grams PO sg sg
[2017-10-08] MEDS ORDERED: HYDROCODONE/APAP 7.5/325 MG TAB ONE (15:50)
--- NOTE | 2017-10-08 16:25 | EKG ---
Test Date: 2017-10-08 Test Time: 14:36:24 Lumber Press Operator: BEBE MEASUREMENT RESULTS: Intervals: Rate: 83 KS: 144 QRSD: 82 QT: 362 QTc: 425 [place]: P: 50 KS: 144 QRS: 40 T: 16 INTERPRETIVE STATEMENTS: Normal sinus rhythm with sinus arrhythmia Normal ECG Compared to ECG 10/08/2017 10:50:32 No significant changes Electronically Signed On 10-08-17 16:24:22 CDT by Justin Heredia
--- NOTE | 2017-10-08 16:27 | EKG ---
Test Date: 2017-10-08 Test Time: 10:50:32 Special Officer Automat: YANE MEASUREMENT RESULTS: Intervals: Rate: 90 AK: 140 QRSD: 90 QT: 350 QTc: 428 [place]: P: 50 AK: 140 QRS: 40 T: 21 INTERPRETIVE STATEMENTS: Normal sinus rhythm Normal ECG Compared to ECG 10/03/2017 21:09:24 Sinus tachycardia no longer present Electronically Signed On 10-08-17 16:24:40 CDT by Justin Heredia
[2017-10-08 17:21] VITALS: TEMP 98.2
[2017-10-08 17:23] VITALS: BP 136/85; O2SAT 99
== END 2017-10-08 17:05 | disposition home or self-care (01) ==
LOC: ER 10:33
DX: R11.2 Nausea with vomiting, unspecified (principal); G80.9 Cerebral palsy, unspecified; Q05.4 Unspecified spina bifida with hydrocephalus; Z88.0 Allergy status to penicillin; Z88.1 Allergy status to other antibiotic agents; Z88.2 Allergy status to sulfonamides; Z88.3 Allergy status to other anti-infective agents; Z88.5 Allergy status to narcotic agent; Z88.6 Allergy status to analgesic agent
CPT/HCPCS: 36415; 80048; 80076; 83735; 84132; 84484; 85025; 85610; 85730; 93005; 96365; 96366; 96375; 99285; J2543; J2550; J3010; J7030

== ENCOUNTER 2017-10-24 01:53 | Emergency (ER) | payer OTHER ==
--- OUTSIDE RECORDS SUMMARY | 2017-10-24 01:55 | XMS REPORT | Clinical Summary ---
:1985 Author Organization [facility] Address [address] [place] [address] Phone Care Team Providers Name Role Phone Unavailable Primary Care Provider Unavailable Allergies Active Allergy Reactions Severity Noted Date Comments Sulfamethoxazole-Trimethoprim Hives High 12/23/2016 Levofloxacin Hives High 12/23/2016 Morphine Hives High 12/23/2016 Ketorolac Rash High 12/23/2016 Vancomycin Analogues Rash High 12/23/2016 Sesame Seed Hives 12/23/2016 Ondansetron Hcl (Pf) Nausea And Vomiting 12/23/2016 Current Medications Prescription Sig. Disp. Refills Start Date End Date Status oxyCODONE-acetaminoph Take 1 tablet Active en (PERCOCET) 10-325 by mouth every mg per tablet 4 (four) hours as needed for Pain. cefdinir (OMNICEF) Take 1 capsule 26 capsule 0 12/25/2016 01/07/2017 300 MG capsule (300 mg total) by mouth every 12 (twelve) hours for 13 days. Active Problems Problem Noted Date Spina bifida (HCC) 12/24/2016 Pyelonephritis 12/23/2016 Encounters Date Type Specialty Care Team Description 12/22/2016 - Hospital Encounter General Internal [place], [place] Pyelonephritis;Sepsis 12/25/2016 Medicine MD Brit , due to unspecified Melendez, Nish organism ([facility]);Sean Pereira MD bifida, unspecified Brittany Melendez hydrocephalus MD Leann presence, unspecified spinal region ([facility]) after 10/23/2016 Social History Tobacco Use Types Packs/Day Years Used Date Current Every Day Smoker Cigarettes 0.5 Tobacco Cessation: Ready to Quit: No Sex Assigned at Date Recorded Not on file Last Filed Vital Signs Vital Sign Reading Time Taken Blood Pressure 128/66 12/25/2016 11:18 AM CDT Pulse 89 12/25/2016 11:18 AM CDT Temperature 36.6 C (97.8 F) 12/25/2016 11:18 AM CDT Respiratory Rate 19 12/25/2016 11:18 AM CDT Oxygen Saturation 95% 12/25/2016 3:43 AM CDT Inhaled Oxygen Concentration - - Weight 131.1 kg (289 lb) 12/23/2016 1:00 AM CDT Height 149.9 cm (4' 11") 12/23/2016 1:00 AM CDT Body Mass Index 58.37 12/23/2016 1:00 AM CDT Plan of Treatment Not on file Results RHYTHM STRIP - SCAN (12/26/2016 10:10 AM)Manual Differential (12/25/2016 9:58 AM)Only the most recent of2 resultswithin the time period is included. Component Value Ref Range Total Counted WBC Morphology Normal Platelet Morphology Normal RBC Morphology Normal Specimen Performing Laboratory Blood - Arm, [address] [address] CBC with platelet count + automated diff (12/25/2016 9:58 AM)Only the most recent of3 resultswithin the time period is included. Component Value Ref Range WBC 7.3 4.0 - 10.0 K/L RBC 5.09 4.20 - 5.80 M/L Hemoglobin 13.0 13.0 - 16.8 GM/DL Hematocrit 42.3 40.0 - 50.0 % MCV 83.0 82.0 - 98.0 fL MCH 25.6 (L) 27.0 - 33.0 pg MCHC 30.8 (L) 32.0 - 36.0 GM/DL RDW 18.0 (H) 10.3 - 14.2 % Platelets 331 150 - 430 K/CU MM MPV 8.5 6.5 - 10.5 fL nRBC 0 0 - 0 /100 WBC % Neutros 65 % % Lymphs 23 % % Monos 8 % % Eos 3 % % Baso 1 % # Neutros 4.75 1.80 - 8.00 K/L # Lymphs 1.68 1.48 - 4.50 K/L # Monos 0.55 0.00 - 1.30 K/L # Eos 0.24 0.00 - 0.50 K/L # Baso 0.05 0.00 - 0.20 K/L Specimen Performing Laboratory Blood - Arm, [address] [address] Narrative 0.00 0.52 0.00 0.00 0.00 0.00 CBC with platelet count + automated diff (12/25/2016 9:58 AM)Only the most recent of3 resultswithin the time period is included. Specimen Performing Laboratory Blood Narrative The following orders were created for panel order CBC with platelet count + automated diff. Procedure Abnormality Status --------- ------ CBC with platelet count ...[[id number]]AbnormalFinal result Manual Differential[[id number]] Fi nal result Please view results for these tests on the individual orders. Basic Metabolic Panel (12/25/2016 9:58 AM)Only the most recent of2 resultswithin the time period is included. Component Value Ref Range Sodium 138 136 - 145 meq/L Potassium 4.0 3.5 - 5.1 meq/L Chloride 108 (H) 98 - 107 meq/L CO2 23 22 - 29 meq/L BUN 11 7 - 21 mg/dL Creatinine 0.74 0.57 - 1.25 mg/dL Glucose 124 (H) 70 - 105 mg/dL Calcium 8.9 8.4 - 10.2 mg/dL EGFR 150Comment: ESTIMATED GFR IS NOT ACCURATE mL/min/1.73 sq m CREATININE CLEARANCE IN PREDICTING GLOMERULAR FILTRATION RATE. ESTIMATED GFR IS NOT APPLICABLE FOR DIALYSIS PATIENTS. Specimen Performing Laboratory Blood - Arm, [address] [address] Comprehensive metabolic panel (12/24/2016 8:09 AM) Component Value Ref Range Protein, Total 7.3 6.0 - 8.3 gm/dL Albumin 3.3 (L) 3.5 - 5.0 g/dL Alkaline Phosphatase 89 40 - 150 U/L Total Bilirubin 1.4 (H) 0.2 - 1.2 mg/dL Sodium 137 136 - 145 meq/L Potassium 3.7 3.5 - 5.1 meq/L Chloride 108 (H) 98 - 107 meq/L CO2 17 (L) 22 - 29 meq/L BUN 12 7 - 21 mg/dL Creatinine 0.78 0.57 - 1.25 mg/dL Glucose 119 (H) 70 - 105 mg/dL Calcium 8.6 8.4 - 10.2 mg/dL AST 13 5 - 34 U/L ALT 28 6 - 55 U/L EGFR 141Comment: ESTIMATED GFR IS NOT ACCURATE mL/min/1.73 sq m CREATININE CLEARANCE IN PREDICTING GLOMERULAR FILTRATION RATE. ESTIMATED GFR IS NOT APPLICABLE FOR DIALYSIS PATIENTS. Specimen Performing Laboratory Blood - Arm, [address] [address] Urinalysis w/ Microscopic (12/23/2016 4:57 AM) Component Value Ref Range Color, UA Yellow Clarity, UA Hazy Specific [place], UA 1.012 1.001 - 1.035 pH, UA 5.5 5.0 - 8.0 Protein, UA 100 mg/dL (A) Negative Glucose, UA Negative Negative Ketones, UA Negative Negative Bilirubin, UA Negative Negative Blood, UA Moderate (A) Negative Nitrite, UA Negative Negative Leukocytes, UA Large (A) Negative Urobilinogen, UA 3.0 (H) 0.2 - 1.0 mg/dL RBC, UA 19 /HPF WBC, UA 182 /HPF Specimen Source Specimen Performing Laboratory Urine [address] [address] Urine culture (12/23/2016 4:57 AM) Component Value Ref Range Result <10,000 col/mL skin marilee Specimen Performing Laboratory Urine - Urine, Urostomy [address] [address] Blood culture #1 (12/23/2016 3:26 AM)Only the most recent of2 resultswithin the time period is included. Component Value Ref Range Result No growth in 5 days Specimen Performing Laboratory Blood - Arm, [address] [address] after 10/23/2016
--- OUTSIDE RECORDS SUMMARY | 2017-10-24 01:55 | XMS REPORT ---
:1985 Author Organization [facility] Address [address] [place] [address] [address]. [address] [place] [address] Care Team Providers Name Role Phone LAMAR GENAO Unavailable Unavailable Problems This patient has no known problems. Allergies, Adverse Reactions, Alerts This patient has no known allergies or adverse reactions. Medications This patient has no known medications. Results Test Description Test Time Test Comments Text Results Atomic Results Result Comments BLOOD CULTURE 2016-12-28 16:22:00 Test Item Value Reference Range Comments CULTURE (BEAKER) (test xgbl=3089) No growth in 5 days BLOOD [id number] 16:22:00 Test Item Value Reference Range Comments CULTURE (BEAKER) (test gbgw=6757) No growth in 5 days (MANUAL DIFFERENTIAL)2016-12-25 22:29:00 Test Item Value Reference Range Comments TOTAL COUNTED (BEAKER) (test tnpt=4795) WBC MORPHOLOGY (BEAKER) (test crch=403) Normal PLT MORPHOLOGY (BEAKER) (test nusb=011) Normal RBC MORPHOLOGY (BEAKER) (test ottl=583) Normal CBC W/PLT COUNT & AUTO [id number] 22:28:00 Test Item Value Reference Range Comments WHITE BLOOD CELL COUNT (BEAKER) (test fvhp=978) 7.3 K/ L 4.0-10.0 RED BLOOD CELL COUNT (BEAKER) (test cvgq=038) 5.09 M/ L 4.20-5.80 HEMOGLOBIN (BEAKER) (test acll=336) 13.0 GM/DL 13.0-16.8 HEMATOCRIT (BEAKER) (test blge=375) 42.3 % 40.0-50.0 MEAN CORPUSCULAR VOLUME (BEAKER) (test ooap=510) 83.0 fL 82.0-98.0 MEAN CORPUSCULAR HEMOGLOBIN (BEAKER) (test 25.6 pg 27.0-33.0 zqyc=536) MEAN CORPUSCULAR HEMOGLOBIN CONC (BEAKER) (test 30.8 GM/DL 32.0-36.0 yuwm=579) RED CELL DISTRIBUTION WIDTH (BEAKER) (test 18.0 % 10.3-14.2 rils=902) PLATELET COUNT (BEAKER) (test ihxz=860) 331 K/CU MM 150-430 MEAN PLATELET VOLUME (BEAKER) (test ebcg=387) 8.5 fL 6.5-10.5 NUCLEATED RED BLOOD CELLS (BEAKER) (test 0 /100 WBC 0-0 cvmv=213) NEUTROPHILS RELATIVE PERCENT (BEAKER) (test 65 % tcqb=597) LYMPHOCYTES RELATIVE PERCENT (BEAKER) (test 23 % obqx=077) MONOCYTES RELATIVE PERCENT (BEAKER) (test 8 % ghft=558) EOSINOPHILS RELATIVE PERCENT (BEAKER) (test 3 % qubm=652) BASOPHILS RELATIVE PERCENT (BEAKER) (test 1 % psnd=222) NEUTROPHILS ABSOLUTE COUNT (BEAKER) (test 4.75 K/ L 1.80-8.00 uzms=369) LYMPHOCYTES ABSOLUTE COUNT (BEAKER) (test 1.68 K/ L 1.48-4.50 spac=311) MONOCYTES ABSOLUTE COUNT (BEAKER) (test 0.55 K/ L 0.00-1.30 hijy=850) EOSINOPHILS ABSOLUTE COUNT (BEAKER) (test 0.24 K/ L 0.00-0.50 qhrg=978) BASOPHILS ABSOLUTE COUNT (BEAKER) (test 0.05 K/ L 0.00-0.20 nqbh=232) 0.000.520.000.000.000.00BASI METABOLIC [id number] 11:11:00 Test Item Value Reference Range Comments SODIUM (BEAKER) (test 138 meq/L 136-145 xqtp=136) POTASSIUM (BEAKER) (test 4.0 meq/L 3.5-5.1 eopr=552) CHLORIDE (BEAKER) (test 108 meq/L 98-107 kzol=199) CO2 (BEAKER) (test 23 meq/L 22-29 bxcx=294) BLOOD UREA NITROGEN 11 mg/dL 7-21 (BEAKER) (test ogea=507) CREATININE (BEAKER) (test 0.74 mg/dL 0.57-1.25 mzry=400) GLUCOSE RANDOM (BEAKER) 124 mg/dL 70-105 (test bkkc=499) CALCIUM (BEAKER) (test 8.9 mg/dL 8.4-10.2 hirj=079) EGFR (BEAKER) (test 150 mL/min/1.73 sq m ESTIMATED GFR IS NOT puwt=9218) ACCURATE CREATININE CLEARANCE IN PREDICTING GLOMERULAR FILTRATION RATE. ESTIMATED GFR IS NOT APPLICABLE FOR DIALYSIS PATIENTS. URINE [id number] 09:56:00 Test Item Value Reference Range Comments CULTURE (BEAKER) (test <10,000 col/mL skin marilee iddv=9806) COMPREHENSIVE METABOLIC [id number] 08:49:00 Test Item Value Reference Range Comments TOTAL PROTEIN (BEAKER) 7.3 gm/dL 6.0-8.3 (test uqht=474) ALBUMIN (BEAKER) (test 3.3 g/dL 3.5-5.0 yxhs=2342) ALKALINE PHOSPHATASE 89 U/L 40-150 (BEAKER) (test jbff=611) BILIRUBIN TOTAL (BEAKER) 1.4 mg/dL 0.2-1.2 (test opca=674) SODIUM (BEAKER) (test 137 meq/L 136-145 kbrm=914) POTASSIUM (BEAKER) (test 3.7 meq/L 3.5-5.1 oopu=783) CHLORIDE (BEAKER) (test 108 meq/L 98-107 lggf=615) CO2 (BEAKER) (test 17 meq/L 22-29 qhha=133) BLOOD UREA NITROGEN 12 mg/dL 7-21 (BEAKER) (test dgtr=177) CREATININE (BEAKER) (test 0.78 mg/dL 0.57-1.25 hjhs=553) GLUCOSE RANDOM (BEAKER) 119 mg/dL 70-105 (test kaev=178) CALCIUM (BEAKER) (test 8.6 mg/dL 8.4-10.2 fpgg=237) AST (SGOT) (BEAKER) (test 13 U/L 5-34 aryv=501) ALT (SGPT) (BEAKER) (test 28 U/L 6-55 dmeo=015) EGFR (BEAKER) (test 141 mL/min/1.73 sq ESTIMATED GFR IS NOT bhfq=9112) m ACCURATE CREATININE CLEARANCE IN PREDICTING GLOMERULAR FILTRATION RATE. ESTIMATED GFR IS NOT APPLICABLE FOR DIALYSIS PATIENTS. CBC W/PLT COUNT & AUTO [id number] 08:46:00 Test Item Value Reference Range Comments WHITE BLOOD CELL COUNT (BEAKER) (test rvnw=019) 9.4 K/ L 4.0-10.0 RED BLOOD CELL COUNT (BEAKER) (test fnsv=501) 4.79 M/ L 4.20-5.80 HEMOGLOBIN (BEAKER) (test xbjo=588) 12.8 GM/DL 13.0-16.8 HEMATOCRIT (BEAKER) (test lhoy=998) 40.0 % 40.0-50.0 MEAN CORPUSCULAR VOLUME (BEAKER) (test wsje=138) 83.4 fL 82.0-98.0 MEAN CORPUSCULAR HEMOGLOBIN (BEAKER) (test 26.7 pg 27.0-33.0 jzjh=372) MEAN CORPUSCULAR HEMOGLOBIN CONC (BEAKER) (test 32.0 GM/DL 32.0-36.0 frgd=274) RED CELL DISTRIBUTION WIDTH (BEAKER) (test 18.2 % 10.3-14.2 beys=533) PLATELET COUNT (BEAKER) (test gveg=105) 313 K/CU MM 150-430 MEAN PLATELET VOLUME (BEAKER) (test gick=134) 8.6 fL 6.5-10.5 NUCLEATED RED BLOOD CELLS (BEAKER) (test 0 /100 WBC 0-0 frdy=045) NEUTROPHILS RELATIVE PERCENT (BEAKER) (test 70 % tcoa=863) LYMPHOCYTES RELATIVE PERCENT (BEAKER) (test 16 % xabm=230) MONOCYTES RELATIVE PERCENT (BEAKER) (test 12 % cfax=980) EOSINOPHILS RELATIVE PERCENT (BEAKER) (test 1 % tgag=936) BASOPHILS RELATIVE PERCENT (BEAKER) (test 1 % qbed=091) NEUTROPHILS ABSOLUTE COUNT (BEAKER) (test 6.54 K/ L 1.80-8.00 wgmz=737) LYMPHOCYTES ABSOLUTE COUNT (BEAKER) (test 1.50 K/ L 1.48-4.50 ftfl=948) MONOCYTES ABSOLUTE COUNT (BEAKER) (test 1.13 K/ L 0.00-1.30 toql=705) EOSINOPHILS ABSOLUTE COUNT (BEAKER) (test 0.13 K/ L 0.00-0.50 oxix=666) BASOPHILS ABSOLUTE COUNT (BEAKER) (test 0.06 K/ L 0.00-0.20 daib=653) 0.00URINALYSIS W/ [id number] 20:36:00 Test Item Value Reference Range Comments COLOR (BEAKER) (test sbch=856) Yellow CLARITY (BEAKER) (test oeel=478) Hazy SPECIFIC GRAVITY UA (BEAKER) (test fiqv=911) 1.012 1.001-1.035 PH UA (BEAKER) (test aisp=346) 5.5 5.0-8.0 PROTEIN UA (BEAKER) (test krtp=595) 100 mg/dL Negative GLUCOSE UA (BEAKER) (test ahyk=862) Negative Negative KETONES UA (BEAKER) (test kxdx=445) Negative Negative BILIRUBIN UA (BEAKER) (test dljq=500) Negative Negative BLOOD UA (BEAKER) (test jrnm=737) Moderate Negative NITRITE UA (BEAKER) (test lmqx=273) Negative Negative LEUKOCYTE ESTERASE UA (BEAKER) (test xokg=211) Large Negative UROBILINOGEN UA (BEAKER) (test dspu=766) 3.0 mg/dL 0.2-1.0 RBC UA (BEAKER) (test xtfb=048) 19 /HPF WBC UA (BEAKER) (test zpan=597) 182 /HPF SOURCE(BEAKER) (test gghq=2408) BASIC METABOLIC [id number] 17:00:00 Test Item Value Reference Range Comments SODIUM (BEAKER) (test 140 meq/L 136-145 oxnp=628) POTASSIUM (BEAKER) (test 3.7 meq/L 3.5-5.1 tvzn=899) CHLORIDE (BEAKER) (test 112 meq/L 98-107 wrcc=062) CO2 (BEAKER) (test 17 meq/L 22-29 hhkb=673) BLOOD UREA NITROGEN 23 mg/dL 7-21 (BEAKER) (test pcvd=581) CREATININE (BEAKER) (test 1.00 mg/dL 0.57-1.25 tyyv=654) GLUCOSE RANDOM (BEAKER) 102 mg/dL 70-105 (test domm=680) CALCIUM (BEAKER) (test 8.7 mg/dL 8.4-10.2 colb=162) EGFR (BEAKER) (test 106 mL/min/1.73 sq m ESTIMATED GFR IS NOT oeot=2393) ACCURATE CREATININE CLEARANCE IN PREDICTING GLOMERULAR FILTRATION RATE. ESTIMATED GFR IS NOT APPLICABLE FOR DIALYSIS PATIENTS. Specimen slightly ictericCBC W/PLT COUNT & AUTO [id number] 12:18 :00 Test Item Value Reference Range Comments WHITE BLOOD CELL COUNT (BEAKER) (test kipt=860) 16.4 K/ L 4.0-10.0 RED BLOOD CELL COUNT (BEAKER) (test sdob=619) 5.22 M/ L 4.20-5.80 HEMOGLOBIN (BEAKER) (test vczh=030) 14.4 GM/DL 13.0-16.8 HEMATOCRIT (BEAKER) (test cvqz=341) 42.9 % 40.0-50.0 MEAN CORPUSCULAR VOLUME (BEAKER) (test ctnk=025) 82.2 fL 82.0-98.0 MEAN CORPUSCULAR HEMOGLOBIN (BEAKER) (test 27.5 pg 27.0-33.0 yfhk=748) MEAN CORPUSCULAR HEMOGLOBIN CONC (BEAKER) (test 33.5 GM/DL 32.0-36.0 awqt=498) RED CELL DISTRIBUTION WIDTH (BEAKER) (test 16.2 % 10.3-14.2 qwud=558) PLATELET COUNT (BEAKER) (test xhgr=794) 329 K/CU MM 150-430 MEAN PLATELET VOLUME (BEAKER) (test ihhr=062) 8.2 fL 6.5-10.5 NUCLEATED RED BLOOD CELLS (BEAKER) (test 0 /100 WBC 0-0 unhv=997) NEUTROPHILS RELATIVE PERCENT (BEAKER) (test 83 % alzt=989) LYMPHOCYTES RELATIVE PERCENT (BEAKER) (test 7 % ttef=193) MONOCYTES RELATIVE PERCENT (BEAKER) (test 9 % gkbu=050) EOSINOPHILS RELATIVE PERCENT (BEAKER) (test 0 % pfmb=641) BASOPHILS RELATIVE PERCENT (BEAKER) (test 0 % gfie=870) NEUTROPHILS ABSOLUTE COUNT (BEAKER) (test 1.62 K/ L 1.80-8.00 raot=675) LYMPHOCYTES ABSOLUTE COUNT (BEAKER) (test 1.15 K/ L 1.48-4.50 nodf=354) MONOCYTES ABSOLUTE COUNT (BEAKER) (test 1.56 K/ L 0.00-1.30 aoul=950) EOSINOPHILS ABSOLUTE COUNT (BEAKER) (test 0.01 K/ L 0.00-0.50 kjmm=544) BASOPHILS ABSOLUTE COUNT (BEAKER) (test 0.02 K/ L 0.00-0.20 gyjr=734) (MANUAL DIFFERENTIAL)2016-12-23 12:18:00 Test Item Value Reference Range Comments TOTAL COUNTED (BEAKER) (test sttj=3935) WBC MORPHOLOGY (BEAKER) (test ywby=641) Normal PLT MORPHOLOGY (BEAKER) (test oncb=717) Normal RBC MORPHOLOGY (BEAKER) (test glbf=547) Normal
[2017-10-24] MEDS ORDERED: FENTANYL CITR 100 MCG/2 ML ONE ×2 (02:22→08:01)
[2017-10-24] MEDS ORDERED: ONDANSETRON 4 MG/2 ML VIAL ONE (02:23)
--- NOTE | 2017-10-24 06:37 | ER ---
Nurse's Notes [facility] Name: Roland Feldman Jr Age: 32 yrs Sex: Male : 1985 Arrival Date: 10/24/2017 Time: 01:55 Bed 4 Private MD: Diagnosis: Superficial injury of head;Strain of muscle, fascia and tendon at neck level;Fall due to bumping against object Presentation: 10/24 02:03 Presenting complaint: EMS states: Patient attempting to get out of bed and rolled out lp1 hitting head on corner of night stand; Complaint of head and neck pain; Patient non-ambulatory. Transition of care: patient was received from another setting of care (long-term care facility), [facility]. Onset of symptoms was October 24, 2017 at 01:30. Care prior to arrival: Cervical collar in place. 02:03 Method Of Arrival: EMS: [facility] lp1 02:03 Acuity: YUKI 3 lp1 Historical: - Allergies: 02:10 Levofloxacin; lp1 02:10 Morphine; lp1 02:10 sulfamethoxazole; lp1 02:10 Vancomycin; lp1 02:10 Toradol; lp1 02:10 Zofran; lp1 02:10 Amoxicillin; lp1 02:10 Ciprofloxacin; lp1 02:10 Doxycycline; lp1 02:10 Bactrim; lp1 02:10 CLAVULANIC ACID; lp1 02:10 TRIMETHOPRIM; lp1 - Home Meds: 02:10 pantoprazole 40 mg oral TbEC 1 tab once daily [Active]; zinc sulfate 220 (50) mg Oral lp1 cap daily [Active]; metoprolol tartrate 25 mg Oral tab 1 tab 2 times per day [Active]; ProMod Protein Oral liqd 30 mL twice a day [Active]; Vitamin C 500 mg Oral tab twice a day [Active]; - PMHx: 02:10 Cluster headaches; Cerebral Palsy; Hypertension; GERD; decubitus ulcers on feet; lp1 Asthma; Hydrocephalus; spina bifida; - PSHx: 02:10 [employer] shunt; Cholecystectomy; lp1 - Immunization history:: Adult Immunizations up to date. - Family history:: not pertinent. - Social history:: Smoking status: Patient uses tobacco products, smokes one-half pack cigarettes per day. Screenin:05 Abuse screen: Denies threats or abuse. Denies injuries from another. Nutritional lp1 screening: No deficits noted. Tuberculosis screening: No symptoms or risk factors identified. Fall Risk Total Smith Fall Scale indicates High Risk Score (45 or more points). Fall prevention measures have been instituted. Side Rails Up X 2 As available patient and family educated on Fall Prevention Program and Strategies. Assessment: 02:05 General: Appears in no apparent distress. uncomfortable, Behavior is anxious. Pain: bs1 Complains of pain in forehead and top of head, back Pain does not radiate. Neuro: Level of Consciousness is awake, alert, obeys commands, Oriented to person, place, time, situation, Appropriate for age Blast Furnace Checker are equal bilaterally Moves all extremities. Gait is steady. Cardiovascular: Denies chest pain, palpitations, shortness of breath, Heart tones S1 S2 present Capillary refill < 3 seconds Patient's skin is warm and dry. Respiratory: Airway is patent Trachea midline Respiratory effort is even, unlabored, Respiratory pattern is regular, symmetrical, Breath sounds are clear bilaterally. GI: Abdomen is round Bowel sounds present X 4 quads. : suprapubic catheter in place from prior facility Urine is jesi. EENT: No deficits noted. No signs and/or symptoms were reported regarding the EENT system. 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 Musculoskeletal: Circulation, motion, and sensation intact. Capillary refill < 3 seconds, Range of motion: limited in all extremities. 03:05 Reassessment: Patient appears in no apparent distress at this time. No changes from bs1 previously documented assessment. Patient and/or family updated on plan of care and expected duration. Pain level reassessed. Patient is alert, oriented x 3, equal unlabored respirations, skin warm/dry/pink. 04:05 Reassessment: Patient appears in no apparent distress at this time. No changes from bs1 previously documented assessment. Patient and/or family updated on plan of care and expected duration. Pain level reassessed. Patient reports pain in neck/head, informed Dr Quezada, does not want to give any pain medication until CT reports are back. 05:05 Reassessment: No changes from previously documented assessment. Patient and/or family bs1 updated on plan of care and expected duration. Pain level reassessed. Patient is alert, oriented x 3, equal unlabored respirations, skin warm/dry/pink. Pending results of CT. 06:05 Reassessment: Patient appears in no apparent distress at this time. Patient is alert, bs1 oriented x 3, equal unlabored respirations, skin warm/dry/pink. No chest pain or any signs of distress. 06:32 Reassessment: Still pending results of CT. bs1 06:47 Reassessment: Report called to [facility] at 0645, report given to NAIF Ellis, nurse states bs1 that transportation will not be available until after 0800 am. Patient still c/o pain, Dr Quezada notified. At this time, does not want to give any medications. Pending transfer back to [facility]. 07:03 Reassessment: Report given to NAIF Whelan. bs1 07:20 Reassessment: Patient appears in no apparent distress at this time. Patient and/or sg family updated on plan of care and expected duration. Pain level reassessed. Patient is alert, oriented x 3, equal unlabored respirations, skin warm/dry/pink. 08:00 Reassessment: Patient appears in no apparent distress at this time. Patient and/or sg family updated on plan of care and expected duration. Pain level reassessed. Patient is alert, oriented x 3, equal unlabored respirations, skin warm/dry/pink. v/o received from to remove c-collar, c-collar removed, pt c/o pain that has returned, orders received for fentanyl 50 mcg ivp, pt medicated see EMAR. Vital Signs: 02:05 BP 155 / 90; Pulse 97; Resp 18; Pulse Ox 97% on R/A; Weight 131.54 kg; Height 4 ft. 11 lp1 in. (149.86 cm); Pain 9/10; 03:05 BP 147 / 88; Pulse 92; Resp 17; Pulse Ox 98% ; Pain 10/10; bs1 04:05 BP 127 / 69; Pulse 73; Resp 16; Pulse Ox 93% on R/A; Pain 10/10; bs1 05:05 BP 122 / 78; Pulse 72; Resp 16; Pulse Ox 93% ; Pain 10/10; bs1 06:09 BP 125 / 70; Pulse 87; Resp 16; Pulse Ox 98% on R/A; Pain 10/10; bs1 02:05 Body Mass Index 58.57 (131.54 kg, 149.86 cm) lp1 ED Course: 01:55 Patient arrived in ED. em1 01:57 Clifton Quezada MD is Attending Physician. scott 02:05 Triage completed. lp1 02:05 Arm band placed on right wrist. lp1 02:13 Mary Owens, RN is Primary Nurse. bs1 02:19 Patient has correct armband on for positive identification. Bed in low position. Call bs1 light in reach. Side rails up X 1. Pulse ox on. NIBP on. 02:20 Accessed PICC line. left upper arm, from [facility]. bs1 02:58 No provider procedures requiring assistance completed. bs1 03:45 CT Head C Spine In Process Unspecified. EDMS Administered Medications: 02:30 Drug: fentaNYL (PF) 50 mcg {Note: left upper arm.} Route: IVP; Site: PICC; bs1 02:58 Follow up: Response: No adverse reaction bs1 02:40 Not Given (Patient Refused; allergic to zofran): Zofran 4 mg IVP once; over 2 minutes bs1 06:41 Not Given (Duplicate Order): fentaNYL (PF) 50 mcg IVP once scott 06:41 Not Given (Duplicate Order): Phenergan 12.5 mg IVP once scott 08:00 Drug: fentaNYL (PF) 50 mcg Route: IVP; Site: PICC; sg Outcome: 06:36 Discharge ordered by . scott 09:02 Patient left the ED. sg Signatures: Dispatcher [employer] EDMS Kiran Cabrera, RN RN sg Clifton Quezada MD MD cha Martinez, Eric em1 Araceli Williamson, RN RN lp1 Mary Owens, NAIF RN bs1 Corrections: (The following items were deleted from the chart) 04:43 02:03 Transition of care: patient was not received from another setting of care. lp1 lp1 05:53 05:05 Reassessment: No changes from previously documented assessment. Patient and/or bs1 family updated on plan of care and expected duration. Pain level reassessed. Patient is alert, oriented x 3, equal unlabored respirations, skin warm/dry/pink. Pending results of CT bs1 07:04 06:47 Reassessment: Report called to [facility] at 0645, report given to NAIF Ellis, nurse bs1 states that transportation will not be available until after 0800 am. bs1
--- NOTE | 2017-10-24 06:37 | EDPHYS ---
Physician Documentation [facility] Name: Roland Feldman Jr Age: 32 yrs Sex: Male : 1985 Arrival Date: 10/24/2017 Time: 01:55 Bed 4 Private MD: ED Physician Clifton Quezada HPI: 10/24 02:00 This 32 yrs old Black Male presents to ER via Unassigned with complaints of fall out of [facility] bed hit head. 02:00 Trauma demographics: County: The injury occurred in [place]. Mechanism of injury: [facility] Fall: approximately approximately 3 feet. Associated injuries: The patient sustained injury to the head, neck injury. Onset: The symptoms/episode began/occurred just prior to arrival. The patient or guardian complains of decreased range of motion, pain. The symptoms are located at the C1, C2, C3, C4 and C5. The patient complains of pain to the top of head and forehead. Historical: - Allergies: 02:10 Levofloxacin; lp1 02:10 Morphine; lp1 02:10 sulfamethoxazole; lp1 02:10 Vancomycin; lp1 02:10 Toradol; lp1 02:10 Zofran; lp1 02:10 Amoxicillin; lp1 02:10 Ciprofloxacin; lp1 02:10 Doxycycline; lp1 02:10 Bactrim; lp1 02:10 CLAVULANIC ACID; lp1 02:10 TRIMETHOPRIM; lp1 - Home Meds: 02:10 pantoprazole 40 mg oral TbEC 1 tab once daily [Active]; zinc sulfate 220 (50) mg Oral lp1 cap daily [Active]; metoprolol tartrate 25 mg Oral tab 1 tab 2 times per day [Active]; ProMod Protein Oral liqd 30 mL twice a day [Active]; Vitamin C 500 mg Oral tab twice a day [Active]; - PMHx: 02:10 Cluster headaches; Cerebral Palsy; Hypertension; GERD; decubitus ulcers on feet; lp1 Asthma; Hydrocephalus; spina bifida; - PSHx: 02:10 INTERTYPE OPERATOR shunt; Cholecystectomy; lp1 - Immunization history:: Adult Immunizations up to date. - Family history:: not pertinent. - Social history:: Smoking status: Patient uses tobacco products, smokes one-half pack cigarettes per day. ROS: 02:00 Constitutional: Negative for fever, chills, and weight loss, Eyes: Negative for injury, scott pain, redness, and discharge, ENT: Negative for injury, pain, and discharge, Neck: Negative for injury, pain, and swelling, Cardiovascular: Negative for chest pain, palpitations, and edema, Respiratory: Negative for shortness of breath, cough, wheezing, and pleuritic chest pain, Abdomen/GI: Negative for abdominal pain, nausea, vomiting, diarrhea, and constipation, Back: Negative for injury and pain, : Negative for injury, bleeding, discharge, and swelling, MS/Extremity: Negative for injury and deformity, Skin: Negative for injury, rash, and discoloration, Psych: Negative for depression, anxiety, suicide ideation, homicidal ideation, and hallucinations, Allergy/Immunology: Negative for hives, rash, and allergies, Endocrine: Negative for neck swelling, polydipsia, polyuria, polyphagia, and marked weight changes, Hematologic/Lymphatic: Negative for swollen nodes, abnormal bleeding, and unusual bruising. 02:00 Neuro: Positive for headache. Exam: 02:00 Constitutional: This is a well developed, well nourished patient who is awake, alert, scott and in no acute distress. Eyes: Pupils equal round and reactive to light, extra-ocular motions intact. Lids and lashes normal. Conjunctiva and sclera are non-icteric and not injected. Cornea within normal limits. Periorbital areas with no swelling, redness, or edema. ENT: Nares patent. No nasal discharge, no septal abnormalities noted. Tympanic membranes are normal and external auditory canals are clear. Oropharynx with no redness, swelling, or masses, exudates, or evidence of obstruction, uvula midline. Mucous membranes moist. Neck: Trachea midline, no thyromegaly or masses palpated, and no cervical lymphadenopathy. Supple, full range of motion without nuchal rigidity, or vertebral point tenderness. No Meningismus. Chest/axilla: Normal chest wall appearance and motion. Nontender with no deformity. No lesions are appreciated. Cardiovascular: Regular rate and rhythm with a normal S1 and S2. No gallops, murmurs, or rubs. Normal PMI, no JVD. No pulse deficits. Respiratory: Lungs have equal breath sounds bilaterally, clear to auscultation and percussion. No rales, rhonchi or wheezes noted. No increased work of breathing, no retractions or nasal flaring. Abdomen/GI: Soft, non-tender, with normal bowel sounds. No distension or tympany. No guarding or rebound. No evidence of tenderness throughout. Back: No spinal tenderness. No costovertebral tenderness. Full range of motion. Male : Normal genitalia with no discharge or lesions. Skin: Warm, dry with normal turgor. Normal color with no rashes, no lesions, and no evidence of cellulitis. Neuro: Awake and alert, GCS 15, oriented to person, place, time, and situation. Cranial nerves II-XII grossly intact. Motor strength 5/5 in all extremities. Sensory grossly intact. Cerebellar exam normal. Normal gait. Psych: Awake, alert, with orientation to person, place and time. Behavior, mood, and affect are within normal limits. 02:00 Head/face: Noted is contusion, that is superficial. 02:00 Musculoskeletal/extremity: ROM: the patient is contracted, Circulation is intact in all extremities. decreased sensation, Compartment Syndrome exam of affected extremity: is normal. Weight bearing: is unable to bear weight, DVT Exam: no pain, no tenderness, negative Homans' sign noted on exam, no appreciated bluish discoloration, no erythema, no increased warmth, swelling. Vital Signs: 02:05 BP 155 / 90; Pulse 97; Resp 18; Pulse Ox 97% on R/A; Weight 131.54 kg; Height 4 ft. 11 lp1 in. (149.86 cm); Pain 9/10; 03:05 BP 147 / 88; Pulse 92; Resp 17; Pulse Ox 98% ; Pain 10/10; bs1 04:05 BP 127 / 69; Pulse 73; Resp 16; Pulse Ox 93% on R/A; Pain 10/10; bs1 05:05 BP 122 / 78; Pulse 72; Resp 16; Pulse Ox 93% ; Pain 10/10; bs1 06:09 BP 125 / 70; Pulse 87; Resp 16; Pulse Ox 98% on R/A; Pain 10/10; bs1 02:05 Body Mass Index 58.57 (131.54 kg, 149.86 cm) lp1 MDM: 01:57 Patient medically screened. [facility] 02:00 Data reviewed: vital signs, nurses notes, radiologic studies, CT scan. [facility] 10/24 01:59 Order name: CT Head C Spine scott Administered Medications: 02:30 Drug: fentaNYL (PF) 50 mcg {Note: left upper arm.} Route: IVP; Site: PICC; bs1 02:58 Follow up: Response: No adverse reaction bs1 02:40 Not Given (Patient Refused; allergic to zofran): Zofran 4 mg IVP once; over 2 minutes bs1 06:41 Not Given (Duplicate Order): fentaNYL (PF) 50 mcg IVP once scott 06:41 Not Given (Duplicate Order): Phenergan 12.5 mg IVP once scott 08:00 Drug: fentaNYL (PF) 50 mcg Route: IVP; Site: PICC; Disposition: 10/24/17 06:36 Discharged to Home. Impression: Superficial injury of head, Strain of muscle, fascia and tendon at neck level, Fall due to bumping against object. - Condition is Stable. - Discharge Instructions: Head Injury, Adult, Fall Prevention and Home Safety, Ventriculoperitoneal Shunt Home Guide, Cervical Sprain, [id number], Ventriculoperitoneal Shunt Placement, Care After. - Medication Reconciliation Form, Thank You Letter, Antibiotic Education, Prescription Opioid Use form. - Follow up: Private Physician; When: 2 - 3 days; Reason: Recheck today's complaints, Continuance of care, Re-evaluation by your physician. - Problem is new. - Symptoms have improved. Signatures: Dispatcher [employer] EDMS Kiran Cabrera, RN Clifton Perez MD MD cha Pena, Laura, RN RN lp1 Brittany Loya RN RN hb Salazar, Brittany RN RN bs1
--- NOTE | 2017-10-24 08:26 | RAD REPORT ---
EXAM DESCRIPTION: CT - Head C Spine Mpr Wo Con - 10/24/2017 6:49 am CLINICAL HISTORY: Head and neck injury status post fall. Head and neck pain fell out of bed and hit head COMPARISON: 2015 TECHNIQUE: Computed axial tomography of the head and cervical spine was obtained. Sagittal and coronal reconstruction was performed.A preliminary report was generated by [employer] and reviewed prior to dictation All CT scans are performed using dose optimization technique as appropriate and may include automated exposure control or mA/KV adjustment according to patient size. FINDINGS: An intracranial bleed is not seen. The ventricles are small. They are unchanged in caliber from the prior exam. . An extra-axial fluid collection is not noted. Dysgenesis of the corpus callos um is suspected. Ventricular shunts are unchanged in position. Fluid within the visualized sinuses an d mastoids is not seen A cervical fracture is not visualized. No dislocation is noted. IMPRESSION: No acute intracranial abnormality is seen. A cervical fracture is not visualized. If the patient continues to have symptoms to suggest intracra nial /spinal cord pathology then MRI would be recommended
[2017-10-24 09:15] VITALS: BP 125/70; O2SAT 98
== END 2017-10-24 09:02 | disposition home or self-care (01) ==
LOC: ER 01:53
DX: S00.90XA Unspecified superficial injury of unspecified part of head, initial encounter (principal); S16.1XXA Strain of muscle, fascia and tendon at neck level, initial encounter; W06.XXXA Fall from bed, initial encounter; Y92.003 Bedroom of unspecified non-institutional (private) residence as the place of occurrence of the external cause; I10 Essential (primary) hypertension; K21.9 Gastro-esophageal reflux disease without esophagitis; G80.9 Cerebral palsy, unspecified; F17.210 Nicotine dependence, cigarettes, uncomplicated; Z88.0 Allergy status to penicillin; Z88.1 Allergy status to other antibiotic agents; Z88.2 Allergy status to sulfonamides; Z88.3 Allergy status to other anti-infective agents; Z88.5 Allergy status to narcotic agent; Z88.6 Allergy status to analgesic agent; Z88.8 Allergy status to other drugs, medicaments and biological substances
CPT/HCPCS: 70450; 72125; 96374; 99284; J2405; J3010

== ENCOUNTER 2017-11-14 13:08 | Emergency (ER) | payer OTHER ==
--- OUTSIDE RECORDS SUMMARY | 2017-11-14 13:10 | XMS REPORT ---
:1985 [facility] Address [address] [place] [address] [address] [place] [address] Care Team Providers Name Role Phone JAQUELIN GENAO Unavailable Unavailable Problems This patient has no known problems. Allergies, Adverse Reactions, Alerts This patient has no known allergies or adverse reactions. Medications This patient has no known medications. Results Test Description Test Time Test Comments Text Results Atomic Results Result Comments BLOOD CULTURE 2016-12-28 16:22:00 Test Item Value Reference Range Comments CULTURE (BEAKER) (test dytu=3774) No growth in 5 days BLOOD [id number] 16:22:00 Test Item Value Reference Range Comments CULTURE (BEAKER) (test zuiy=3938) No growth in 5 days (MANUAL DIFFERENTIAL)2016-12-25 22:29:00 Test Item Value Reference Range Comments TOTAL COUNTED (BEAKER) (test twud=9925) WBC MORPHOLOGY (BEAKER) (test xczk=342) Normal PLT MORPHOLOGY (BEAKER) (test vave=139) Normal RBC MORPHOLOGY (BEAKER) (test rpee=406) Normal CBC W/PLT COUNT & AUTO [id number] 22:28:00 Test Item Value Reference Range Comments WHITE BLOOD CELL COUNT (BEAKER) (test mkfg=554) 7.3 K/ L 4.0-10.0 RED BLOOD CELL COUNT (BEAKER) (test hwsi=483) 5.09 M/ L 4.20-5.80 HEMOGLOBIN (BEAKER) (test ogsk=834) 13.0 GM/DL 13.0-16.8 HEMATOCRIT (BEAKER) (test kvaj=375) 42.3 % 40.0-50.0 MEAN CORPUSCULAR VOLUME (BEAKER) (test hmgj=580) 83.0 fL 82.0-98.0 MEAN CORPUSCULAR HEMOGLOBIN (BEAKER) (test 25.6 pg 27.0-33.0 ghbt=101) MEAN CORPUSCULAR HEMOGLOBIN CONC (BEAKER) (test 30.8 GM/DL 32.0-36.0 ratd=357) RED CELL DISTRIBUTION WIDTH (BEAKER) (test 18.0 % 10.3-14.2 ocmj=497) PLATELET COUNT (BEAKER) (test sotc=448) 331 K/CU MM 150-430 MEAN PLATELET VOLUME (BEAKER) (test nnuu=735) 8.5 fL 6.5-10.5 NUCLEATED RED BLOOD CELLS (BEAKER) (test 0 /100 WBC 0-0 kiyl=197) NEUTROPHILS RELATIVE PERCENT (BEAKER) (test 65 % iixu=256) LYMPHOCYTES RELATIVE PERCENT (BEAKER) (test 23 % roso=442) MONOCYTES RELATIVE PERCENT (BEAKER) (test 8 % ukhx=852) EOSINOPHILS RELATIVE PERCENT (BEAKER) (test 3 % ffdd=698) BASOPHILS RELATIVE PERCENT (BEAKER) (test 1 % magj=729) NEUTROPHILS ABSOLUTE COUNT (BEAKER) (test 4.75 K/ L 1.80-8.00 apkm=415) LYMPHOCYTES ABSOLUTE COUNT (BEAKER) (test 1.68 K/ L 1.48-4.50 wckc=135) MONOCYTES ABSOLUTE COUNT (BEAKER) (test 0.55 K/ L 0.00-1.30 spyd=644) EOSINOPHILS ABSOLUTE COUNT (BEAKER) (test 0.24 K/ L 0.00-0.50 suvf=990) BASOPHILS ABSOLUTE COUNT (BEAKER) (test 0.05 K/ L 0.00-0.20 exnl=276) 0.000.520.000.000.000.00BASI METABOLIC [id number] 11:11:00 Test Item Value Reference Range Comments SODIUM (BEAKER) (test 138 meq/L 136-145 shnk=824) POTASSIUM (BEAKER) (test 4.0 meq/L 3.5-5.1 trpq=896) CHLORIDE (BEAKER) (test 108 meq/L 98-107 qtdr=141) CO2 (BEAKER) (test 23 meq/L 22-29 mgdv=079) BLOOD UREA NITROGEN 11 mg/dL 7-21 (BEAKER) (test gqri=724) CREATININE (BEAKER) (test 0.74 mg/dL 0.57-1.25 nrkv=439) GLUCOSE RANDOM (BEAKER) 124 mg/dL 70-105 (test zugr=690) CALCIUM (BEAKER) (test 8.9 mg/dL 8.4-10.2 rzpc=418) EGFR (BEAKER) (test 150 mL/min/1.73 sq m ESTIMATED GFR IS NOT oakv=1763) ACCURATE CREATININE CLEARANCE IN PREDICTING GLOMERULAR FILTRATION RATE. ESTIMATED GFR IS NOT APPLICABLE FOR DIALYSIS PATIENTS. URINE [id number] 09:56:00 Test Item Value Reference Range Comments CULTURE (BEAKER) (test kxan=9327) <10,000 col/mL skin marilee COMPREHENSIVE METABOLIC [id number] 08:49:00 Test Item Value Reference Range Comments TOTAL PROTEIN (BEAKER) 7.3 gm/dL 6.0-8.3 (test qxik=813) ALBUMIN (BEAKER) (test 3.3 g/dL 3.5-5.0 ldin=8020) ALKALINE PHOSPHATASE 89 U/L 40-150 (BEAKER) (test qnli=824) BILIRUBIN TOTAL (BEAKER) 1.4 mg/dL 0.2-1.2 (test ujko=653) SODIUM (BEAKER) (test 137 meq/L 136-145 qxjn=868) POTASSIUM (BEAKER) (test 3.7 meq/L 3.5-5.1 vyif=101) CHLORIDE (BEAKER) (test 108 meq/L 98-107 dbiw=804) CO2 (BEAKER) (test 17 meq/L 22-29 llbx=076) BLOOD UREA NITROGEN 12 mg/dL 7-21 (BEAKER) (test vmyo=450) CREATININE (BEAKER) (test 0.78 mg/dL 0.57-1.25 jbfb=499) GLUCOSE RANDOM (BEAKER) 119 mg/dL 70-105 (test uwef=290) CALCIUM (BEAKER) (test 8.6 mg/dL 8.4-10.2 dfkv=640) AST (SGOT) (BEAKER) (test 13 U/L 5-34 ddsx=895) ALT (SGPT) (BEAKER) (test 28 U/L 6-55 vflk=909) EGFR (BEAKER) (test 141 mL/min/1.73 sq ESTIMATED GFR IS NOT okhg=6959) m ACCURATE CREATININE CLEARANCE IN PREDICTING GLOMERULAR FILTRATION RATE. ESTIMATED GFR IS NOT APPLICABLE FOR DIALYSIS PATIENTS. CBC W/PLT COUNT & AUTO [id number] 08:46:00 Test Item Value Reference Range Comments WHITE BLOOD CELL COUNT (BEAKER) (test seln=551) 9.4 K/ L 4.0-10.0 RED BLOOD CELL COUNT (BEAKER) (test yrfl=301) 4.79 M/ L 4.20-5.80 HEMOGLOBIN (BEAKER) (test ryni=058) 12.8 GM/DL 13.0-16.8 HEMATOCRIT (BEAKER) (test zlki=768) 40.0 % 40.0-50.0 MEAN CORPUSCULAR VOLUME (BEAKER) (test qmke=603) 83.4 fL 82.0-98.0 MEAN CORPUSCULAR HEMOGLOBIN (BEAKER) (test 26.7 pg 27.0-33.0 pttn=264) MEAN CORPUSCULAR HEMOGLOBIN CONC (BEAKER) (test 32.0 GM/DL 32.0-36.0 tgvf=473) RED CELL DISTRIBUTION WIDTH (BEAKER) (test 18.2 % 10.3-14.2 gdal=651) PLATELET COUNT (BEAKER) (test cmro=595) 313 K/CU MM 150-430 MEAN PLATELET VOLUME (BEAKER) (test fbqq=078) 8.6 fL 6.5-10.5 NUCLEATED RED BLOOD CELLS (BEAKER) (test 0 /100 WBC 0-0 xbkd=025) NEUTROPHILS RELATIVE PERCENT (BEAKER) (test 70 % pcbl=629) LYMPHOCYTES RELATIVE PERCENT (BEAKER) (test 16 % gypt=898) MONOCYTES RELATIVE PERCENT (BEAKER) (test 12 % teih=951) EOSINOPHILS RELATIVE PERCENT (BEAKER) (test 1 % wxzt=485) BASOPHILS RELATIVE PERCENT (BEAKER) (test 1 % lzky=842) NEUTROPHILS ABSOLUTE COUNT (BEAKER) (test 6.54 K/ L 1.80-8.00 gtpy=929) LYMPHOCYTES ABSOLUTE COUNT (BEAKER) (test 1.50 K/ L 1.48-4.50 trtl=045) MONOCYTES ABSOLUTE COUNT (BEAKER) (test 1.13 K/ L 0.00-1.30 tacd=282) EOSINOPHILS ABSOLUTE COUNT (BEAKER) (test 0.13 K/ L 0.00-0.50 yozz=138) BASOPHILS ABSOLUTE COUNT (BEAKER) (test 0.06 K/ L 0.00-0.20 fiia=476) 0.00URINALYSIS W/ [id number] 20:36:00 Test Item Value Reference Range Comments COLOR (BEAKER) (test bpwm=366) Yellow CLARITY (BEAKER) (test deme=040) Hazy SPECIFIC GRAVITY UA (BEAKER) (test ccms=651) 1.012 1.001-1.035 PH UA (BEAKER) (test bnjm=515) 5.5 5.0-8.0 PROTEIN UA (BEAKER) (test rrmh=770) 100 mg/dL Negative GLUCOSE UA (BEAKER) (test whlo=670) Negative Negative KETONES UA (BEAKER) (test dmqp=090) Negative Negative BILIRUBIN UA (BEAKER) (test tzdv=110) Negative Negative BLOOD UA (BEAKER) (test vlrx=080) Moderate Negative NITRITE UA (BEAKER) (test wxbh=353) Negative Negative LEUKOCYTE ESTERASE UA (BEAKER) (test xthw=819) Large Negative UROBILINOGEN UA (BEAKER) (test esun=411) 3.0 mg/dL 0.2-1.0 RBC UA (BEAKER) (test bmce=644) 19 /HPF WBC UA (BEAKER) (test xwtf=827) 182 /HPF SOURCE(BEAKER) (test meil=5366) BASIC METABOLIC [id number] 17:00:00 Test Item Value Reference Range Comments SODIUM (BEAKER) (test 140 meq/L 136-145 vqnd=666) POTASSIUM (BEAKER) (test 3.7 meq/L 3.5-5.1 eveh=206) CHLORIDE (BEAKER) (test 112 meq/L 98-107 mzhd=453) CO2 (BEAKER) (test 17 meq/L 22-29 cmza=860) BLOOD UREA NITROGEN 23 mg/dL 7-21 (BEAKER) (test huse=332) CREATININE (BEAKER) (test 1.00 mg/dL 0.57-1.25 rsmn=315) GLUCOSE RANDOM (BEAKER) 102 mg/dL 70-105 (test wgtr=844) CALCIUM (BEAKER) (test 8.7 mg/dL 8.4-10.2 rnbv=531) EGFR (BEAKER) (test 106 mL/min/1.73 sq m ESTIMATED GFR IS NOT qviu=3391) ACCURATE CREATININE CLEARANCE IN PREDICTING GLOMERULAR FILTRATION RATE. ESTIMATED GFR IS NOT APPLICABLE FOR DIALYSIS PATIENTS. Specimen slightly ictericCBC W/PLT COUNT & AUTO [id number] 12:18 :00 Test Item Value Reference Range Comments WHITE BLOOD CELL COUNT (BEAKER) (test thts=296) 16.4 K/ L 4.0-10.0 RED BLOOD CELL COUNT (BEAKER) (test znuf=285) 5.22 M/ L 4.20-5.80 HEMOGLOBIN (BEAKER) (test gees=228) 14.4 GM/DL 13.0-16.8 HEMATOCRIT (BEAKER) (test fozx=282) 42.9 % 40.0-50.0 MEAN CORPUSCULAR VOLUME (BEAKER) (test mxji=791) 82.2 fL 82.0-98.0 MEAN CORPUSCULAR HEMOGLOBIN (BEAKER) (test 27.5 pg 27.0-33.0 kusl=096) MEAN CORPUSCULAR HEMOGLOBIN CONC (BEAKER) (test 33.5 GM/DL 32.0-36.0 mozn=918) RED CELL DISTRIBUTION WIDTH (BEAKER) (test 16.2 % 10.3-14.2 mbzx=908) PLATELET COUNT (BEAKER) (test wdkh=198) 329 K/CU MM 150-430 MEAN PLATELET VOLUME (BEAKER) (test euvj=192) 8.2 fL 6.5-10.5 NUCLEATED RED BLOOD CELLS (BEAKER) (test 0 /100 WBC 0-0 wuql=135) NEUTROPHILS RELATIVE PERCENT (BEAKER) (test 83 % satu=981) LYMPHOCYTES RELATIVE PERCENT (BEAKER) (test 7 % xfry=152) MONOCYTES RELATIVE PERCENT (BEAKER) (test 9 % nhtq=141) EOSINOPHILS RELATIVE PERCENT (BEAKER) (test 0 % fiiz=719) BASOPHILS RELATIVE PERCENT (BEAKER) (test 0 % lswq=271) NEUTROPHILS ABSOLUTE COUNT (BEAKER) (test 1.62 K/ L 1.80-8.00 dapa=654) LYMPHOCYTES ABSOLUTE COUNT (BEAKER) (test 1.15 K/ L 1.48-4.50 vmgx=635) MONOCYTES ABSOLUTE COUNT (BEAKER) (test 1.56 K/ L 0.00-1.30 nzqs=001) EOSINOPHILS ABSOLUTE COUNT (BEAKER) (test 0.01 K/ L 0.00-0.50 iuoq=840) BASOPHILS ABSOLUTE COUNT (BEAKER) (test 0.02 K/ L 0.00-0.20 oxny=458) (MANUAL DIFFERENTIAL)2016-12-23 12:18:00 Test Item Value Reference Range Comments TOTAL COUNTED (BEAKER) (test ogzi=4230) WBC MORPHOLOGY (BEAKER) (test onuy=820) Normal PLT MORPHOLOGY (BEAKER) (test nihx=516) Normal RBC MORPHOLOGY (BEAKER) (test qibt=531) Normal
--- OUTSIDE RECORDS SUMMARY | 2017-11-14 13:10 | XMS REPORT | Clinical Summary ---
:1985 Author Organization [facility] Address [address] [place] [address] Phone Care Team Providers Name Role Phone [...] Description 12/22/2016 - Hospital Encounter General Internal Carmelita, [place] Pyelonephritis;Sepsis 12/25/2016 Medicine MD Brit , due to unspecified Melendez, Nish organism ([facility]);Sean Pereira MD bifida, unspecified Brittany Melendez hydrocephalus MD Leann presence, unspecified spinal region ([facility]) after 11/13/2016 Social History Tobacco Use Types Packs/Day Years [...] Normal Specimen Performing Laboratory Blood - Arm, [address] [address] CBC with platelet count + automated diff [...] K/L Specimen Performing Laboratory Blood - Arm, [address] [address] Narrative 0.00 0.52 0.00 0.00 0.00 0.00 CBC with platelet count + automated diff (12/25/2016 9:58 AM)Only the most recent of3 resultswithin the time period is included. Specimen Performing Laboratory Blood Narrative The following orders were created for panel order CBC with platelet count + automated diff. Procedure Abnormality Status --------- ------ CBC with platelet count ...[[id number]]AbnormalFinal result Manual Differential[[id number]] Fi nal result Please view results for [...] PATIENTS. Specimen Performing Laboratory Blood - Arm, [address] [address] Comprehensive metabolic panel (12/24/2016 8:09 AM) Component [...] PATIENTS. Specimen Performing Laboratory Blood - Arm, [address] [address] Urinalysis w/ Microscopic (12/23/2016 4:57 AM) Component Value Ref Range Color, UA Yellow Clarity, UA Hazy Specific Seanor, UA 1.012 1.001 - 1.035 pH, UA [...] /HPF Specimen Source Specimen Performing Laboratory Urine [address] [address] Urine culture (12/23/2016 4:57 AM) Component Value Ref Range Result <10,000 col/mL skin marilee Specimen Performing Laboratory Urine - Urine, Urostomy [address] [address] Blood culture #1 (12/23/2016 3:26 AM)Only the most recent of2 resultswithin the time period is included. Component Value Ref Range Result No growth in 5 days Specimen Performing Laboratory Blood - Arm, [address] [address] after 11/13/2016
[2017-11-14] MEDS ORDERED: MEPERIDINE HCL 25 MG/0.5 ML ONE ×2 (13:51→15:05)
[2017-11-14] MEDS ORDERED: PROMETHAZINE 25 MG/ML VIAL ONE (13:51)
[2017-11-14] MEDS ORDERED: DIPHENHYDRAMINE 50 MG/ML VIAL ONE (13:52)
--- NOTE | 2017-11-14 14:21 | RAD REPORT ---
EXAM DESCRIPTION: CT - Head Brain Wo Cont - 11/14/2017 2:05 pm CLINICAL HISTORY: Headache, possible shunt malfunction COMPARISON: CT head October 24, 2017; CT study March 2017 TECHNIQUE: Axial 5 mm thick images of the head were obtained without IV contrast. All CT scans are performed using dose optimization technique as appropriate and may include automated exposure control or mA/KV adjustment according to patient size. FINDINGS: No intracranial hemorrhage is present. No mass, edema or other acute intracranial finding identifiable. Patient has right frontal and right parietal shunt tubes in place. Benign calcification s seen along the inner table left parietal bone. Ventricular system does not appear to be dilated. Ho wever, ventricles are slightly larger than seen on October 24. Currently ventricles are smaller than se en March 2017. No cortical edema or acute cortical based infarction. Mastoid air cells and visualized portions of the paranasal sinuses are clear. No acute bony findings. IMPRESSION: No hemorrhage, mass or acute intracranial finding identifiable. Ventricles are not dilated but do appear slightly larger than October 24. Ventricular size is less th an was seen March 2017.
--- NOTE | 2017-11-14 14:59 | ER ---
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 I have had a lk1 horrible headache for 2 days and nothing is helping it. The last time this happened it was a problem with my shunt and that was 12 years ago.". Transition of care: patient was received from another setting of care (long-term care facility), [facility]. Onset of symptoms was November 12, 2017. Initial Sepsis Screen: Does the patient meet any 2 criteria? No. Patient's initial sepsis screen is negative. Does the patient have a suspected source of infection? No. Patient's initial sepsis screen is negative. Care prior to arrival: Medication(s) given: Phenergan, 12.5 mg, Fentanyl 65mcg. 13:15 Method Of Arrival: EMS: [facility] lk1 13:15 Acuity: YUKI 3 lk1 Triage Assessment: 13:23 General: Appears in no apparent distress. Behavior is calm, cooperative, appropriate lk1 for age. Pain: Complains of pain in head Pain currently is 10 out of 10 on a pain scale. EENT: No signs and/or symptoms were reported regarding the EENT system. Neuro: Level of Consciousness is awake, alert, obeys commands, Oriented to person, place, time, situation, Speech is normal, Facial symmetry appears normal, Pupils are PERRLA. Neuro: Reports dizziness, headache. Cardiovascular: Heart tones S1 S2 present Capillary refill is brisk Patient's skin is warm and dry. Respiratory: Airway is patent Respiratory effort is even, unlabored, Respiratory pattern is regular, symmetrical. GI: Abdomen is non-distended, obese, Bowel sounds present X 4 quads. Reports nausea. : No signs and/or symptoms were reported regarding the genitourinary system. Derm: No signs and/or symptoms reported regarding the dermatologic system. Musculoskeletal: No signs and/or symptoms reported regarding the musculoskeletal system. Historical: - Allergies: 13:23 Amoxicillin; lk1 13:23 Bactrim; lk1 13:23 Ciprofloxacin; lk1 13:23 CLAVULANIC ACID; lk1 13:23 Doxycycline; lk1 13:23 Levofloxacin; lk1 13:23 Morphine; lk1 13:23 sulfamethoxazole; lk1 13:23 Toradol; lk1 13:23 TRIMETHOPRIM; lk1 13:23 Vancomycin; lk1 13:23 Zofran; lk1 - PMHx: 13:23 Asthma; Cerebral Palsy; cluster headaches; decubitus ulcers on feet; GERD; lk1 Hydrocephalus; Hypertension; spina bifida; - PSHx: 13:23 JV BASE[employer] shunt; Cholecystectomy; lk1 - Immunization history:: Adult Immunizations up to date. - Social history:: Smoking status: Patient/guardian denies using tobacco. Screenin:26 Abuse screen: Denies threats or abuse. Denies injuries from another. Nutritional lk1 screening: No deficits noted. Tuberculosis screening: No symptoms or risk factors identified. Fall Risk Total Smith Fall Scale indicates High Risk Score (45 or more points). Fall prevention measures have been instituted. Side Rails Up X 2 Placed Close to Nursing Station Frequent Obs/Assessments Occuring As available patient and family educated on Fall Prevention Program and Strategies. Assessment: 14:15 Reassessment: Patient and/or family updated on plan of care and expected duration. Pain lk1 level reassessed. Patient is alert, oriented x 3, equal unlabored respirations, skin warm/dry/pink. Patient reports no change in pain. PA notified. Critical care time stopped, patient has stabilized. Patient states symptoms have not improved. Vital Signs: 13:15 BP 138 / 98; Pulse 88; Resp 15; Temp 98.9(O); Pulse Ox 97% on R/A; Weight 131.54 kg lk1 (R); Height 4 ft. 11 in. (149.86 cm) (R); Pain 10/10; 14:00 BP 132 / 93; Pulse 85; Resp 16; Pulse Ox 95% on R/A; lk1 14:30 BP 165 / 97; Pulse 80; Resp 16; Pulse Ox 97% on R/A; lk1 15:00 BP 138 / 107; Pulse 80; Resp 15; Pulse Ox 96% on R/A; Pain 10/10; lk1 16:00 BP 139 / 92; Pulse 82; Resp 15; Pulse Ox 100% on R/A; Pain 8/10; lk1 13:15 Body Mass Index 58.57 (131.54 kg, 149.86 cm) lk1 ED Course: 13:15 Patient arrived in ED. lk1 13:22 Triage completed. lk1 13:26 Clifton Cannon PA is PHCP. cp 13:26 Alban Warner MD is Attending Physician. cp 13:26 Arm band placed on right wrist. lk1 13:26 Patient has correct armband on for positive identification. Bed in low position. Call lk1 light in reach. 13:33 Tracy Garcia, NAIF is Primary Nurse. lk1 13:45 Accessed PICC line. using per hospital protocol. Clean \\T\\ dry. Dressing intact. Good lk1 blood return. Flushes easily. 14:06 Head Brain Wo Cont In Process Unspecified. EDMS 14:09 CT completed. Patient tolerated procedure well. Patient moved back from CT. vr 15:35 Initial lab(s) drawn, by me, sent to lab. Inserted saline lock: 20 gauge in right iw antecubital area, using aseptic technique. Blood collected. 16:36 No provider procedures requiring assistance completed. Patient transferred, IV remains lk1 in place. No redness/swelling at site. Administered Medications: 13:52 Drug: Demerol 25 mg Route: IVP; Site: PICC; lk1 14:15 Follow up: Response: No adverse reaction; Marked relief of symptoms lk1 13:53 Drug: Benadryl 25 mg Route: IVP; Site: PICC; lk1 14:15 Follow up: Response: No adverse reaction; Marked relief of symptoms lk1 13:55 Drug: Phenergan 25 mg Route: IVP; Site: PICC; lk1 14:15 Follow up: Response: No adverse reaction; Marked relief of symptoms lk1 13:56 CANCELLED (Physician Discretion): Benadryl 25 mg IM once lk1 13:56 CANCELLED (Physician Discretion): Demerol 25 mg IM once lk1 13:57 CANCELLED (Physician Discretion): Phenergan 25 mg IM once lk1 15:08 Drug: Decadron - Dexamethasone 10 mg Route: IVP; Site: PICC; lk1 15:30 Follow up: Response: No adverse reaction lk1 15:08 Drug: Demerol 25 mg Route: IVP; Site: PICC; lk 15:30 Follow up: Response: No adverse reaction; Pain is decreased lk1 16:35 Not Given (Patient Refused): NS 0.9% 1000 ml IV at 100 ml/hr continuous lk1 Outcome: 14:59 ER care complete, transfer ordered by MD. greenwood 16:36 Transferred by ground EMS to [facility], Transfer form completed. lk1 16:36 Condition: good 16:36 Discharge instructions given to patient, Instructed on the need for transfer, Demonstrated understanding of instructions. 16:36 Patient left the ED. lk1 Signatures: Dispatcher [employer] EDKathy Rajput RN RN iw Davis, Victoria vr Page, Corey, PA PA cp Kluge, Leah RN RN lk1 Corrections: (The following items were deleted from the chart) 15:13 13:08 Demerol 25 mg IVP in PICC lk1 lk1 15:14 13:10 Decadron - Dexamethasone 10 mg IVP in PICC lk1 lk1
--- NOTE | 2017-11-14 15:00 | EDPHYS ---
Physician Documentation [facility] Name: Roland Feldman Jr Age: 32 yrs Sex: Male : 1985 Arrival Date: 11/14/2017 Time: 13:15 Bed 30 Private MD: ED Physician Alban Warner HPI: 11/14 13:37 This 32 yrs old Black Male presents to ER via EMS with complaints of headache. cp 13:37 The patient complains of pain to the top of head and forehead. cp 13:37 The patient describes the headache as constant, a pressure. Onset: The symptoms/episode cp began/occurred 2 day(s) ago. Associated signs and symptoms: Pertinent positives: nausea, blurred vision, vomiting, Pertinent negatives: altered mental status, fever, weakness. Severity of symptoms: in the emergency department the pain is unchanged, despite home interventions. 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 - Social history:: Smoking status: Patient/guardian denies using tobacco. ROS: 13:40 Constitutional: Negative for body aches, chills, fever, poor PO intake. cp 13:40 Eyes: Positive for blurry vision, Negative for discharge, redness, vision loss. cp 13:40 ENT: Negative for drainage from ear(s), ear pain, rhinorrhea, sore throat, difficulty swallowing, difficulty handling secretions. 13:40 Cardiovascular: Negative for chest pain, edema, palpitations. 13:40 Respiratory: Negative for cough, shortness of breath, wheezing. 13:40 Abdomen/GI: Positive for nausea and vomiting, Negative for abdominal pain, diarrhea, constipation. 13:40 Skin: Negative for cellulitis, rash. 13:40 Neuro: Positive for headache, Negative for altered mental status, weakness. 13:40 All other systems are negative. Exam: 13:48 Constitutional: The patient appears in no acute distress, alert, awake, cp non-diaphoretic, non-toxic, well developed, well nourished, obese. 13:48 Head/Face: Normocephalic, atraumatic. Eyes: Pupils equal round and reactive to light, cp extra-ocular motions intact. Lids and lashes normal. Conjunctiva and sclera are non-icteric and not injected. Cornea within normal limits. Periorbital areas with no swelling, redness, or edema. ENT: Nares patent. No nasal discharge, no septal abnormalities noted. Tympanic membranes are normal and external auditory canals are clear. Oropharynx with no redness, swelling, or masses, exudates, or evidence of obstruction, uvula midline. Mucous membranes moist. Neck: Trachea midline, no thyromegaly or masses palpated, and no cervical lymphadenopathy. Supple, full range of motion without nuchal rigidity, or vertebral point tenderness. No Meningismus. Chest/axilla: Normal chest wall appearance and motion. Nontender with no deformity. No lesions are appreciated. 13:48 Cardiovascular: Rate: normal, Rhythm: regular. 13:48 Respiratory: the patient does not display signs of respiratory distress, Respirations: normal, no use of accessory muscles, no retractions, no splinting, no tachypnea, labored breathing, is not present, Breath sounds: are clear throughout, no decreased breath sounds, no stridor, no wheezing. 13:48 Abdomen/GI: Inspection: obese Palpation: abdomen is soft and non-tender. 13:48 Neuro: Orientation: to person, place \T\ time. 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 Vital Signs: 13:15 BP 138 / 98; Pulse 88; Resp 15; Temp 98.9(O); Pulse Ox 97% on R/A; Weight 131.54 kg lk1 (R); Height 4 ft. 11 in. (149.86 cm) (R); Pain 10/10; 14:00 BP 132 / 93; Pulse 85; Resp 16; Pulse Ox 95% on R/A; lk1 14:30 BP 165 / 97; Pulse 80; Resp 16; Pulse Ox 97% on R/A; lk1 15:00 BP 138 / 107; Pulse 80; Resp 15; Pulse Ox 96% on R/A; Pain 10/10; lk1 16:00 BP 139 / 92; Pulse 82; Resp 15; Pulse Ox 100% on R/A; Pain 8/10; lk1 13:15 Body Mass Index 58.57 (131.54 kg, 149.86 cm) lk1 MDM: 13:26 Patient medically screened. cp 14:00 Differential diagnosis: hypertensive headache, meningoencephalitis, migraine, neoplasm, cp sinusitis, subarachnoid bleed, tension headache. 14:30 Data reviewed: vital signs, nurses notes, radiologic studies, CT scan. cp 15:05 Physician consultation: DR Guadalupe, neurosurgeon \[facility], requests transfer to hospitalist. 15:09 Physician consultation: DR Nash, hospitalist \[facility], will accept patient as transfer. 15:28 ED course: VSS. Patient requesting transfer to [facility] where primary neurologist is located. Consult made with DR Cruz, neurosurgery resident who approves transfer to facility under care of DR Noriega. 11/14 14:30 Order name: CBC with Diff; Complete Time: 16:24 cp 11/14 16:24 Interpretation: Normal except: RBC 5.83; PLT 427; RDW 17.1. cp 11/14 13:45 Order name: Head Brain Wo Cont; Complete Time: 14:24 EDMS 11/14 14:30 Order name: Ptt, Activated; Complete Time: 16:24 cp 11/14 14:30 Order name: PT-INR; Complete Time: 16:24 cp Administered Medications: 13:52 Drug: Demerol 25 mg Route: IVP; Site: PICC; lk1 14:15 Follow up: Response: No adverse reaction; Marked relief of symptoms lk1 13:53 Drug: Benadryl 25 mg Route: IVP; Site: PICC; lk1 14:15 Follow up: Response: No adverse reaction; Marked relief of symptoms lk1 13:55 Drug: Phenergan 25 mg Route: IVP; Site: PICC; lk1 14:15 Follow up: Response: No adverse reaction; Marked relief of symptoms lk1 13:56 CANCELLED (Physician Discretion): Benadryl 25 mg IM once lk1 13:56 CANCELLED (Physician Discretion): Demerol 25 mg IM once lk1 13:57 CANCELLED (Physician Discretion): Phenergan 25 mg IM once lk1 15:08 Drug: Decadron - Dexamethasone 10 mg Route: IVP; Site: PICC; lk1 15:30 Follow up: Response: No adverse reaction lk1 15:08 Drug: Demerol 25 mg Route: IVP; Site: PICC; lk1 15:30 Follow up: Response: No adverse reaction; Pain is decreased lk1 16:35 Not Given (Patient Refused): NS 0.9% 1000 ml IV at 100 ml/hr continuous lk1 Disposition: 17:00 Chart complete. 11/15 07:10 Co-signature as Attending Physician, Alban Warner MD I agree with the assessment and wa plan of care. Disposition: 11/14/17 14:59 Transfer ordered to [facility]. 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 - Reason for transfer: Higher level of care. - Accepting physician is DR Noriega. - Condition is Stable. - Problem is new. - Symptoms have improved. Signatures: Dispatcher [employer] EDMS Clifton Cannon PA PA cp Kluge, Leah, RN RN lk1 Alban Warner MD MD me Corrections: (The following items were deleted from the chart) 11/14 13:55 13:44 Head Brain Wo Cont+CT.RAD.BRZ ordered. EDRI EDMS 13:56 13:40 Benadryl 25 mg IM once ordered. cp lk1 13:56 13:40 Demerol 25 mg IM once ordered. cp lk1 13:57 13:40 Phenergan 25 mg IM once ordered. cp lk1 15:10 14:59 11/14/2017 14:59 Transfer ordered to [facility]. 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 Reason for transfer: Higher level of care. Accepting physician is [facility]. Condition is Stable. Problem is new. Symptoms have improved. cp 15:51 15:10 11/14/2017 14:59 Transfer ordered to [facility]. 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 Reason for transfer: Higher level of care. Accepting physician is DR Nash, hospitalist. Condition is Stable. Problem is new. Symptoms have improved. cp 16:21 14:46 BASIC METABOLIC PANEL+C.LAB.BRZ ordered. EDMS EDMS 16:36 15:51 11/14/2017 14:59 Transfer ordered to [facility]. 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 Reason for transfer: Higher level of care. Accepting physician is DR Noriega. Condition is Stable. Problem is new. Symptoms have improved. cp
[2017-11-14] MEDS ORDERED: DEXAMETHASONE 10 MG/ML VIAL ONE (15:05)
[2017-11-14 15:54] LABS: Protime INR 1.01
[2017-11-14 16:06] LABS: Absolute Lymphocytes (CBC) 1.7 K/uL (0.7-4.9); Absolute Monocytes 0.8 K/uL (0.1-1.3); Absolute Neutrophil 7.6 K/uL (1.8-8.0); Basophils % 0.7 % (0-1.3); Eosinophils % 1.7 % (0-4.4); Hematocrit 48.7 % (39.6-49.0); Lymphocytes % 16.4 % (15.3-44.8); MCH 27.5 pg (27.0-35.0); MCV 83.6 fL (80-100); MPV 8.7 fL (7.6-11.3); RBC Red Blood Cell Count 5.83 M/uL (4.33-5.43)
[2017-11-14 16:41] VITALS: TEMP 98.9
[2017-11-14 16:45] VITALS: BP 139/92; O2SAT 100
== END 2017-11-14 16:36 | disposition short-term general hospital (02) ==
LOC: ER 13:08
DX: R11.2 Nausea with vomiting, unspecified (principal); T85.09XA Other mechanical complication of ventricular intracranial (communicating) shunt, initial encounter; I10 Essential (primary) hypertension; Q05.9 Spina bifida, unspecified; Z88.1 Allergy status to other antibiotic agents; Z88.2 Allergy status to sulfonamides; Z88.3 Allergy status to other anti-infective agents; Z88.5 Allergy status to narcotic agent; Z88.8 Allergy status to other drugs, medicaments and biological substances
CPT/HCPCS: 36415; 70450; 85025; 85610; 85730; 96374; 96375; 99285; J1100; J2175; J2550

== ENCOUNTER 2017-11-26 18:09 | Emergency (ER) | payer OTHER ==
--- OUTSIDE RECORDS SUMMARY | 2017-11-26 18:12 | XMS REPORT ---
:1985 Author Organization [facility] Address [address] [place] [address] Dr. Lee [address] [place] [id number] Care Team Providers Name Role Phone JAQUELIN GENAO Unavailable Unavailable Problems This patient has no known problems. Allergies, Adverse Reactions, Alerts This patient has no known allergies or adverse reactions. Medications This patient has no known medications. Results Test Description Test Time Test Comments Text Results Atomic Results Result Comments BLOOD CULTURE 2016-12-28 16:22:00 Test Item Value Reference Range Comments CULTURE (BEAKER) (test yrje=0311) No growth in 5 days BLOOD [id number] 16:22:00 Test Item Value Reference Range Comments CULTURE (BEAKER) (test miha=0533) No growth in 5 days (MANUAL DIFFERENTIAL)2016-12-25 22:29:00 Test Item Value Reference Range Comments TOTAL COUNTED (BEAKER) (test xhzw=7757) WBC MORPHOLOGY (BEAKER) (test pber=108) Normal PLT MORPHOLOGY (BEAKER) (test oewr=310) Normal RBC MORPHOLOGY (BEAKER) (test crnt=333) Normal CBC W/PLT COUNT & AUTO [id number] 22:28:00 Test Item Value Reference Range Comments WHITE BLOOD CELL COUNT (BEAKER) (test ftnc=063) 7.3 K/ L 4.0-10.0 RED BLOOD CELL COUNT (BEAKER) (test nrih=049) 5.09 M/ L 4.20-5.80 HEMOGLOBIN (BEAKER) (test plct=510) 13.0 GM/DL 13.0-16.8 HEMATOCRIT (BEAKER) (test bmke=036) 42.3 % 40.0-50.0 MEAN CORPUSCULAR VOLUME (BEAKER) (test dswg=155) 83.0 fL 82.0-98.0 MEAN CORPUSCULAR HEMOGLOBIN (BEAKER) (test 25.6 pg 27.0-33.0 zcwt=676) MEAN CORPUSCULAR HEMOGLOBIN CONC (BEAKER) (test 30.8 GM/DL 32.0-36.0 worc=158) RED CELL DISTRIBUTION WIDTH (BEAKER) (test 18.0 % 10.3-14.2 qogv=137) PLATELET COUNT (BEAKER) (test dgcz=990) 331 K/CU MM 150-430 MEAN PLATELET VOLUME (BEAKER) (test nqho=968) 8.5 fL 6.5-10.5 NUCLEATED RED BLOOD CELLS (BEAKER) (test 0 /100 WBC 0-0 dxdj=614) NEUTROPHILS RELATIVE PERCENT (BEAKER) (test 65 % vuea=377) LYMPHOCYTES RELATIVE PERCENT (BEAKER) (test 23 % loua=976) MONOCYTES RELATIVE PERCENT (BEAKER) (test 8 % mgvc=520) EOSINOPHILS RELATIVE PERCENT (BEAKER) (test 3 % wdxp=705) BASOPHILS RELATIVE PERCENT (BEAKER) (test 1 % fsmx=154) NEUTROPHILS ABSOLUTE COUNT (BEAKER) (test 4.75 K/ L 1.80-8.00 wpti=395) LYMPHOCYTES ABSOLUTE COUNT (BEAKER) (test 1.68 K/ L 1.48-4.50 qrgt=112) MONOCYTES ABSOLUTE COUNT (BEAKER) (test 0.55 K/ L 0.00-1.30 gmar=531) EOSINOPHILS ABSOLUTE COUNT (BEAKER) (test 0.24 K/ L 0.00-0.50 buhj=863) BASOPHILS ABSOLUTE COUNT (BEAKER) (test 0.05 K/ L 0.00-0.20 bndk=955) 0.000.520.000.000.000.00BASI METABOLIC [id number] 11:11:00 Test Item Value Reference Range Comments SODIUM (BEAKER) (test 138 meq/L 136-145 jcnd=838) POTASSIUM (BEAKER) (test 4.0 meq/L 3.5-5.1 tald=682) CHLORIDE (BEAKER) (test 108 meq/L 98-107 qutz=282) CO2 (BEAKER) (test 23 meq/L 22-29 blpq=027) BLOOD UREA NITROGEN 11 mg/dL 7-21 (BEAKER) (test xhqx=548) CREATININE (BEAKER) (test 0.74 mg/dL 0.57-1.25 dozn=809) GLUCOSE RANDOM (BEAKER) 124 mg/dL 70-105 (test yzqf=442) CALCIUM (BEAKER) (test 8.9 mg/dL 8.4-10.2 xekd=037) EGFR (BEAKER) (test 150 mL/min/1.73 sq m ESTIMATED GFR IS NOT jsaz=0181) ACCURATE CREATININE CLEARANCE IN PREDICTING GLOMERULAR FILTRATION RATE. ESTIMATED GFR IS NOT APPLICABLE FOR DIALYSIS PATIENTS. URINE [id number] 09:56:00 Test Item Value Reference Range Comments CULTURE (BEAKER) (test fzxv=6505) <10,000 col/mL skin marilee COMPREHENSIVE METABOLIC [id number] 08:49:00 Test Item Value Reference Range Comments TOTAL PROTEIN (BEAKER) 7.3 gm/dL 6.0-8.3 (test raqm=024) ALBUMIN (BEAKER) (test 3.3 g/dL 3.5-5.0 cnnc=5112) ALKALINE PHOSPHATASE 89 U/L 40-150 (BEAKER) (test jngy=728) BILIRUBIN TOTAL (BEAKER) 1.4 mg/dL 0.2-1.2 (test iazm=898) SODIUM (BEAKER) (test 137 meq/L 136-145 mjpo=019) POTASSIUM (BEAKER) (test 3.7 meq/L 3.5-5.1 goro=467) CHLORIDE (BEAKER) (test 108 meq/L 98-107 ydde=792) CO2 (BEAKER) (test 17 meq/L 22-29 bhhr=694) BLOOD UREA NITROGEN 12 mg/dL 7-21 (BEAKER) (test zkoj=032) CREATININE (BEAKER) (test 0.78 mg/dL 0.57-1.25 cxao=773) GLUCOSE RANDOM (BEAKER) 119 mg/dL 70-105 (test lfki=071) CALCIUM (BEAKER) (test 8.6 mg/dL 8.4-10.2 jgoi=565) AST (SGOT) (BEAKER) (test 13 U/L 5-34 wjwt=911) ALT (SGPT) (BEAKER) (test 28 U/L 6-55 kasd=171) EGFR (BEAKER) (test 141 mL/min/1.73 sq ESTIMATED GFR IS NOT maby=8344) m ACCURATE CREATININE CLEARANCE IN PREDICTING GLOMERULAR FILTRATION RATE. ESTIMATED GFR IS NOT APPLICABLE FOR DIALYSIS PATIENTS. CBC W/PLT COUNT & AUTO [id number] 08:46:00 Test Item Value Reference Range Comments WHITE BLOOD CELL COUNT (BEAKER) (test mbwf=328) 9.4 K/ L 4.0-10.0 RED BLOOD CELL COUNT (BEAKER) (test knqf=002) 4.79 M/ L 4.20-5.80 HEMOGLOBIN (BEAKER) (test rjeq=346) 12.8 GM/DL 13.0-16.8 HEMATOCRIT (BEAKER) (test user=656) 40.0 % 40.0-50.0 MEAN CORPUSCULAR VOLUME (BEAKER) (test xkly=558) 83.4 fL 82.0-98.0 MEAN CORPUSCULAR HEMOGLOBIN (BEAKER) (test 26.7 pg 27.0-33.0 vwby=020) MEAN CORPUSCULAR HEMOGLOBIN CONC (BEAKER) (test 32.0 GM/DL 32.0-36.0 eycy=651) RED CELL DISTRIBUTION WIDTH (BEAKER) (test 18.2 % 10.3-14.2 xpaq=439) PLATELET COUNT (BEAKER) (test xkov=019) 313 K/CU MM 150-430 MEAN PLATELET VOLUME (BEAKER) (test ahis=167) 8.6 fL 6.5-10.5 NUCLEATED RED BLOOD CELLS (BEAKER) (test 0 /100 WBC 0-0 nffe=215) NEUTROPHILS RELATIVE PERCENT (BEAKER) (test 70 % vdod=873) LYMPHOCYTES RELATIVE PERCENT (BEAKER) (test 16 % xzae=781) MONOCYTES RELATIVE PERCENT (BEAKER) (test 12 % lkeq=327) EOSINOPHILS RELATIVE PERCENT (BEAKER) (test 1 % xprd=102) BASOPHILS RELATIVE PERCENT (BEAKER) (test 1 % whgy=270) NEUTROPHILS ABSOLUTE COUNT (BEAKER) (test 6.54 K/ L 1.80-8.00 oaoc=651) LYMPHOCYTES ABSOLUTE COUNT (BEAKER) (test 1.50 K/ L 1.48-4.50 mpbj=751) MONOCYTES ABSOLUTE COUNT (BEAKER) (test 1.13 K/ L 0.00-1.30 trxf=999) EOSINOPHILS ABSOLUTE COUNT (BEAKER) (test 0.13 K/ L 0.00-0.50 ahwu=452) BASOPHILS ABSOLUTE COUNT (BEAKER) (test 0.06 K/ L 0.00-0.20 jbgh=000) 0.00URINALYSIS W/ [id number] 20:36:00 Test Item Value Reference Range Comments COLOR (BEAKER) (test sodl=486) Yellow CLARITY (BEAKER) (test hfwx=996) Hazy SPECIFIC GRAVITY UA (BEAKER) (test oern=423) 1.012 1.001-1.035 PH UA (BEAKER) (test ucte=035) 5.5 5.0-8.0 PROTEIN UA (BEAKER) (test saeg=746) 100 mg/dL Negative GLUCOSE UA (BEAKER) (test hkib=181) Negative Negative KETONES UA (BEAKER) (test chep=446) Negative Negative BILIRUBIN UA (BEAKER) (test msez=140) Negative Negative BLOOD UA (BEAKER) (test eare=343) Moderate Negative NITRITE UA (BEAKER) (test bhyn=144) Negative Negative LEUKOCYTE ESTERASE UA (BEAKER) (test vglk=776) Large Negative UROBILINOGEN UA (BEAKER) (test ykbd=888) 3.0 mg/dL 0.2-1.0 RBC UA (BEAKER) (test acuu=646) 19 /HPF WBC UA (BEAKER) (test wtlw=856) 182 /HPF SOURCE(BEAKER) (test kijg=9392) BASIC METABOLIC [id number] 17:00:00 Test Item Value Reference Range Comments SODIUM (BEAKER) (test 140 meq/L 136-145 dzaj=853) POTASSIUM (BEAKER) (test 3.7 meq/L 3.5-5.1 ycxb=713) CHLORIDE (BEAKER) (test 112 meq/L 98-107 ulrk=307) CO2 (BEAKER) (test 17 meq/L 22-29 sotw=053) BLOOD UREA NITROGEN 23 mg/dL 7-21 (BEAKER) (test ozom=483) CREATININE (BEAKER) (test 1.00 mg/dL 0.57-1.25 vllg=347) GLUCOSE RANDOM (BEAKER) 102 mg/dL 70-105 (test uaiq=695) CALCIUM (BEAKER) (test 8.7 mg/dL 8.4-10.2 zmlg=806) EGFR (BEAKER) (test 106 mL/min/1.73 sq m ESTIMATED GFR IS NOT szco=0348) ACCURATE CREATININE CLEARANCE IN PREDICTING GLOMERULAR FILTRATION RATE. ESTIMATED GFR IS NOT APPLICABLE FOR DIALYSIS PATIENTS. Specimen slightly ictericCBC W/PLT COUNT & AUTO [id number] 12:18 :00 Test Item Value Reference Range Comments WHITE BLOOD CELL COUNT (BEAKER) (test ajnj=912) 16.4 K/ L 4.0-10.0 RED BLOOD CELL COUNT (BEAKER) (test qkls=719) 5.22 M/ L 4.20-5.80 HEMOGLOBIN (BEAKER) (test rhot=251) 14.4 GM/DL 13.0-16.8 HEMATOCRIT (BEAKER) (test cuvw=563) 42.9 % 40.0-50.0 MEAN CORPUSCULAR VOLUME (BEAKER) (test bwvx=774) 82.2 fL 82.0-98.0 MEAN CORPUSCULAR HEMOGLOBIN (BEAKER) (test 27.5 pg 27.0-33.0 ljvl=656) MEAN CORPUSCULAR HEMOGLOBIN CONC (BEAKER) (test 33.5 GM/DL 32.0-36.0 ettu=422) RED CELL DISTRIBUTION WIDTH (BEAKER) (test 16.2 % 10.3-14.2 uagj=960) PLATELET COUNT (BEAKER) (test qrls=909) 329 K/CU MM 150-430 MEAN PLATELET VOLUME (BEAKER) (test mdsn=101) 8.2 fL 6.5-10.5 NUCLEATED RED BLOOD CELLS (BEAKER) (test 0 /100 WBC 0-0 dwoe=723) NEUTROPHILS RELATIVE PERCENT (BEAKER) (test 83 % wvvt=095) LYMPHOCYTES RELATIVE PERCENT (BEAKER) (test 7 % txvn=137) MONOCYTES RELATIVE PERCENT (BEAKER) (test 9 % otir=842) EOSINOPHILS RELATIVE PERCENT (BEAKER) (test 0 % ljry=206) BASOPHILS RELATIVE PERCENT (BEAKER) (test 0 % bmny=207) NEUTROPHILS ABSOLUTE COUNT (BEAKER) (test 1.62 K/ L 1.80-8.00 wxjp=176) LYMPHOCYTES ABSOLUTE COUNT (BEAKER) (test 1.15 K/ L 1.48-4.50 glgs=181) MONOCYTES ABSOLUTE COUNT (BEAKER) (test 1.56 K/ L 0.00-1.30 cmck=055) EOSINOPHILS ABSOLUTE COUNT (BEAKER) (test 0.01 K/ L 0.00-0.50 dbrw=238) BASOPHILS ABSOLUTE COUNT (BEAKER) (test 0.02 K/ L 0.00-0.20 ookg=342) (MANUAL DIFFERENTIAL)2016-12-23 12:18:00 Test Item Value Reference Range Comments TOTAL COUNTED (BEAKER) (test nsbo=6726) WBC MORPHOLOGY (BEAKER) (test chic=969) Normal PLT MORPHOLOGY (BEAKER) (test jlpg=527) Normal RBC MORPHOLOGY (BEAKER) (test qsso=964) Normal
--- OUTSIDE RECORDS SUMMARY | 2017-11-26 18:12 | XMS REPORT | Clinical Summary ---
:1985 Author Organization [facility] Address [address] [place] [address] Phone Care Team Providers Name Role Phone [...] , due to unspecified Melendez, Nish organism ([facility]);Sean Pereira MD bifida, unspecified Brittany Melendez hydrocephalus MD Leann presence, unspecified spinal region ([facility]) after 11/25/2016 Social History Tobacco Use Types Packs/Day Years [...] Normal Specimen Performing Laboratory Blood - Arm, [address] [address] CBC with platelet count + automated diff [...] K/L Specimen Performing Laboratory Blood - Arm, [address] [address] Narrative 0.00 0.52 0.00 0.00 0.00 0.00 CBC with platelet count + automated diff (12/25/2016 9:58 AM)Only the most recent of3 resultswithin the time period is included. Specimen Performing Laboratory Blood Narrative The following orders were created for panel order CBC with platelet count + automated diff. Procedure Abnormality Status --------- ------ CBC with platelet count ...[[id number]]AbnormalFinal result Manual Differential[[id number]] Fi nal result Please view results for [...] PATIENTS. Specimen Performing Laboratory Blood - Arm, [address] [address] Comprehensive metabolic panel (12/24/2016 8:09 AM) Component [...] PATIENTS. Specimen Performing Laboratory Blood - Arm, [address] [address] Urinalysis w/ Microscopic (12/23/2016 4:57 AM) Component Value Ref Range Color, UA Yellow Clarity, UA Hazy Specific [place], UA 1.012 1.001 - 1.035 pH, UA [...] /HPF Specimen Source Specimen Performing Laboratory Urine [address] [address] Urine culture (12/23/2016 4:57 AM) Component Value Ref Range Result <10,000 col/mL skin marilee Specimen Performing Laboratory Urine - Urine, Urostomy [address] [address] Blood culture #1 (12/23/2016 3:26 AM)Only the most recent of2 resultswithin the time period is included. Component Value Ref Range Result No growth in 5 days Specimen Performing Laboratory Blood - Arm, [address] [address] after 11/25/2016
--- NOTE | 2017-11-26 19:51 | RAD REPORT ---
EXAM DESCRIPTION: RAD - Chest Single View - 11/26/2017 7:41 pm CLINICAL HISTORY: Chest pain. COMPARISON: 10/05/2017 FINDINGS: Portable technique limits examination quality. The lungs are grossly clear. The heart is normal in size. No displaced fractures.Shunt tubing pankaj es the chest. IMPRESSION: No acute intrathoracic process suspected.
[2017-11-26 20:13] LABS: Absolute Lymphocytes (CBC) 1.6 K/uL (0.7-4.9); Absolute Monocytes 1.5 K/uL (0.1-1.3); Basophils % 0.5 % (0-1.3); Eosinophils % 0.8 % (0-4.4); Hematocrit 49.5 % (39.6-49.0); Lymphocytes % 9.8 % (15.3-44.8); MPV 9.1 fL (7.6-11.3); Monocytes % 9.1 % (3.3-12.3); RBC Red Blood Cell Count 5.96 M/uL (4.33-5.43)
[2017-11-26 20:36] LABS: Bicarbonate 25 mEq/L (21-31); Glucose Level 92 mg/dL (65-120); Potassium 3.9 mEq/L (3.6-5.0); Sodium Level 138 mEq/L (135-145)
[2017-11-26 20:37] LABS: BUN Blood Urea Nitrogen 14 mg/dL (6-20)
[2017-11-26 21:00] LABS: Blood Morphology Comment NOT SEEN (NOT SEEN); Platelet Estimate ADEQ
--- NOTE | 2017-11-26 21:06 | RAD REPORT ---
EXAM DESCRIPTION: CT - Chest For Pe Angio - 11/26/2017 8:58 pm CLINICAL HISTORY: Chest pain. COMPARISON: 05/04/2015 TECHNIQUE: CT angiogram of the pulmonary arteries was performed with MIP. All CT scans are performed using dose optimization technique as appropriate and may include automated exposure control or mA/KV adjustment according to patient size. FINDINGS: No evidence of pulmonary thromboembolism. No acute aortic finding demonstrated. The lungs are clear. No significant pericardial or pleural fluid. No concerning bony finding. IMPRESSION: No evidence of pulmonary thromboembolism. No acute lung findings.
--- NOTE | 2017-11-26 21:17 | ER ---
Nurse's Notes [facility] Name: Roland Feldman Jr Age: 32 yrs Sex: Male : 1985 Arrival Date: 11/26/2017 Time: 18:10 Bed 25 Private MD: Diagnosis: Chest pain, unspecified;Dehydration Presentation: 11/26 18:16 Presenting complaint: Patient states: chest pain started this morning and hasn't gotten mb3 any better. Rates chest pain at 10 on 0 to 10 scale. Transition of care: patient was not received from another setting of care. Onset of symptoms was November 25, 2017. Initial Sepsis Screen: Does the patient meet any 2 criteria? No. Patient's initial sepsis screen is negative. Does the patient have a suspected source of infection? No. Patient's initial sepsis screen is negative. Care prior to arrival: Medication(s) given: Benadryl 25 mg IVPush, aspirin 324 mg po, fentanyl 150 mcg IV push. IV initiated. 22 GA, hand. 18:16 Method Of Arrival: EMS: [facility] mb3 18:16 Acuity: YUKI 3 mb3 Triage Assessment: 18:23 General: Appears uncomfortable, obese, Behavior is calm, cooperative, appropriate for mb3 age. Pain: Complains of pain in chest Pain does not radiate. Pain at worst was 10 out of 10 on a pain scale. EENT: No signs and/or symptoms were reported regarding the EENT system. Neuro: No deficits noted. Level of Consciousness is awake, alert, obeys commands, Oriented to person, place, time, situation. Cardiovascular: Reports chest pain, nausea, Heart tones S1 S2 present Capillary refill < 3 seconds Pulses are all present. Respiratory: Airway is patent Respiratory effort is even, unlabored, Respiratory pattern is regular, symmetrical, Breath sounds are clear bilaterally. GI: Abdomen is round obese, Bowel sounds present X 4 quads. : No signs and/or symptoms were reported regarding the genitourinary system. Musculoskeletal: Scoliosis noted lower legs atrophied and deformed. Historical: - PMHx: 18:22 Asthma; Cerebral Palsy; cluster headaches; decubitus ulcers on feet; GERD; mb3 Hydrocephalus; Hypertension; spina bifida; - Immunization history:: Adult Immunizations up to date. - Social history:: Smoking status: Patient uses tobacco products, smokes one pack cigarettes per day. - Family history:: not pertinent. - Hospitalizations: : No recent hospitalization is reported. Screenin:28 Abuse screen: Denies threats or abuse. Nutritional screening: No deficits noted. mb3 Tuberculosis screening: No symptoms or risk factors identified. Fall Risk Secondary diagnosis (15 points) IV access (20 points). Ambulatory Aid- None/Bed Rest/Nurse Assist (0 pts). Gait- Impaired (20 pts.). Mental Status- Oriented to own ability (0 pts). Total Smith Fall Scale indicates High Risk Score (45 or more points). Assessment: 18:27 General: see triage assessment. Pain: Pain began this morning. mb3 Vital Signs: 18:26 BP 140 / 77; Pulse 122; Resp 20; Temp 99.1(O); Pulse Ox 96% on R/A; Weight 131.54 kg; mb3 Height 4 ft. 11 in. (149.86 cm); Pain 10/10; 20:00 BP 113 / 72; Pulse 119; Resp 18; Pulse Ox 98% on R/A; mb3 21:49 BP 121 / 93; Pulse 107; Resp 18; Pulse Ox 97% ; mb3 18:26 Body Mass Index 58.57 (131.54 kg, 149.86 cm) mb3 ED Course: 18:10 Patient arrived in ED. rg4 18:16 Raza Garrett, RN is Primary Nurse. mb3 18:20 Triage completed. mb3 18:27 Patient has correct armband on for positive identification. Bed in low position. Call mb3 light in reach. Side rails up X 1. youth nutritional monitor on. Pulse ox on. NIBP on. 18:29 Arm band placed on. mb3 18:40 Rah Dominguez MD is Attending Physician. rn 18:52 Radiology exam delayed due to lab results not completed at this time. (BUN/Creatinine). sj 19:18 Radiology exam delayed due to lab results not completed at this time. (BUN/Creatinine). sj 19:38 X-ray completed. Portable x-ray completed in exam room. Patient tolerated procedure mh1 well. 19:39 Chest Single View XRAY In Process Unspecified. EDMS 19:40 Radiology exam delayed due to lab results not completed at this time. (BUN/Creatinine). sj 19:42 Radiology exam delayed due to IV insertion attempt and/or patient not having sj appropriate IV at this time. 20:13 Radiology exam delayed due to lab results not completed at this time. (BUN/Creatinine). vm2 20:[address] sj 20:58 CT completed. Patient tolerated procedure well. Patient moved back from CT. sj 20:58 CT Chest For PE Angio In Process Unspecified. EDMS 21:51 ultasound guided peripheral IV. Inserted saline lock: 22 gauge in right antecubital mb3 area, using aseptic technique. Patient maintains SpO2 saturation greater than 95% on room air. 22:54 IV discontinued, intact, bleeding controlled, No redness/swelling at site. Pressure mb3 dressing applied. 22:54 IV discontinued, intact, bleeding controlled, No redness/swelling at site. Pressure mb3 dressing applied. Administered Medications: 19:27 Drug: NS 0.9% 500 ml Route: IV; Rate: bolus; Site: right hand; mb3 21:48 Follow up: IV Status: Completed infusion; IV Intake: 500ml mb3 23:23 Follow up: IV Status: Completed infusion; IV Intake: 500ml mb3 19:27 Drug: Demerol 25 mg Route: IVP; Site: right hand; mb3 21:48 Follow up: Response: No adverse reaction; Pain is decreased mb3 19:27 Drug: Phenergan 25 mg Route: IVP; Site: right hand; mb3 21:47 Follow up: Response: No adverse reaction mb3 21:15 CANCELLED (Duplicate Order): Benadryl 12.5 mg IVP once rn 21:47 Drug: NS 0.9% 1000 ml Route: IV; Rate: 1000 ml; Site: right antecubital; mb3 23:24 Follow up: Response: No adverse reaction; IV Status: Completed infusion; IV Intake: mb3 1000ml 21:47 Drug: Demerol 25 mg Route: IVP; Site: right antecubital; mb3 23:24 Follow up: Response: No adverse reaction mb3 21:47 Drug: Phenergan 12.5 mg Route: IVP; Site: right antecubital; mb3 23:24 Follow up: Response: No adverse reaction mb3 Intake: 21:48 IV: 500ml; Total: 500ml. mb3 23:23 IV: 500ml; Total: 1000ml. mb3 23:24 IV: 1000ml; Total: 2000ml. mb3 Outcome: 21:17 Discharge ordered by . rn 23:23 Discharged to home via wheelchair. mb3 23:23 Condition: stable 23:23 Discharge instructions given to patient, Instructed on discharge instructions, follow up and referral plans. Demonstrated understanding of instructions, follow-up care. 23:25 Patient left the ED. mb3 Signatures: Dispatcher [employer] EDMS Sophia Giang 1 Abimbola Holman Roman, MD MD rn Garcia, Rubi rg4 [place], [place] [facility] Raza Garrett RN RN mb3
--- NOTE | 2017-11-26 21:18 | EDPHYS ---
Physician Documentation [facility] Name: Roland Feldman Jr Age: 32 yrs Sex: Male : 1985 Arrival Date: 11/26/2017 Time: 18:10 Bed 25 Private MD: ED Physician Rah Dominguez HPI: 11/26 18:50 This 32 yrs old Black Male presents to ER via EMS with complaints of Chest Pain. rn 18:50 The patient or guardian reports chest pain that is located primarily in the anterior rn chest wall. The pain does not radiate. The chest pain is described as sharp, stabbing. Duration: The patient or guardian reports a single episode, that is still ongoing, that lasted 10 hour(s). Severity of pain: At its worst the pain was moderate in the emergency department the pain is unchanged. The patient has not experienced similar symptoms in the past. Reports anterior mid sternal chest pain, non-radiating, constant since this AM, moderate, states fentanyl didn't help, + nausea, no trauma. No hx of dvt/PE. Historical: - PMHx: 18:22 Asthma; Cerebral Palsy; cluster headaches; decubitus ulcers on feet; GERD; mb3 Hydrocephalus; Hypertension; spina bifida; - Immunization history:: Adult Immunizations up to date. - Social history:: Smoking status: Patient uses tobacco products, smokes one pack cigarettes per day. - Family history:: not pertinent. - Hospitalizations: : No recent hospitalization is reported. ROS: 18:50 Constitutional: Negative for fever, chills, and weight loss, Eyes: Negative for injury, rn pain, redness, and discharge, ENT: Negative for injury, pain, and discharge, Neck: Negative for injury, pain, and swelling, Cardiovascular: Negative for palpitations, and edema, Respiratory: Negative for wheezing Abdomen/GI: Negative for abdominal pain, nausea, vomiting, diarrhea, and constipation, Neuro: + mild headache Exam: 18:50 Constitutional: This is a well developed, well nourished patient who is awake, alert, rn and in no acute distress. Head/Face: Normocephalic, atraumatic. Eyes: Pupils equal round and reactive to light, extra-ocular motions intact. Lids and lashes normal. Conjunctiva and sclera are non-icteric and not injected. Cornea within normal limits. Periorbital areas with no swelling, redness, or edema. ENT: dry MM, no stridor Cardiovascular: tachycardic, regular, no murmur Respiratory: + mild tachypnea, no retractions, no wheezing Abdomen/GI: Soft, non-tender, with normal bowel sounds. No distension or tympany. No guarding or rebound. No evidence of tenderness throughout. Neuro: Awake and alert, GCS 15, oriented to person, place, time, and situation. 20:49 ECG was reviewed by the Attending Physician. rn Vital Signs: 18:26 BP 140 / 77; Pulse 122; Resp 20; Temp 99.1(O); Pulse Ox 96% on R/A; Weight 131.54 kg; mb3 Height 4 ft. 11 in. (149.86 cm); Pain 10/10; 20:00 BP 113 / 72; Pulse 119; Resp 18; Pulse Ox 98% on R/A; mb3 21:49 BP 121 / 93; Pulse 107; Resp 18; Pulse Ox 97% ; mb3 18:26 Body Mass Index 58.57 (131.54 kg, 149.86 cm) mb3 Procedures: 20:04 Peripheral line: by aseptic technique a peripheral line was placed in the right rn antecubital vein, Placed by Dr. Dominguez using u/s guidance. MDM: 18:40 Patient medically screened. rn 21:13 Differential diagnosis: acute pericarditis, costochondritis, pleurisy, pneumonia, rn pneumothorax, pulmonary embolus. Data reviewed: vital signs, nurses notes, lab test result(s), EKG, radiologic studies, CT scan, plain films, and as a result, I will discharge patient. Counseling: I had a detailed discussion with the patient and/or guardian regarding: the historical points, exam findings, and any diagnostic results supporting the discharge/admit diagnosis, lab results, radiology results, the need for outpatient follow up, to return to the emergency department if symptoms worsen or persist or if there are any questions or concerns that arise at home. Response to treatment: the patient's symptoms have markedly improved after treatment, and as a result, I will discharge patient. Special discussion: I discussed with the patient/guardian in detail that at this point there is no indication for admission to the hospital. It is understood, however, that if the symptoms persist or worsen the patient needs to return immediately for re-evaluation. ED course: Pt feels better, ct PE neg, trop neg, elevated WBC, is being treated for UTI currently, he states also finishing up abx for skin infection that he states is getting better, reports taking "like 8 different abx including zosyn", will dc home with pcp f/u and return precautions. . 21:15 ED course: Pt sitting up in bed, on phone, no discomfort, BP normal, HR down to 90s, rn will dc home as already on multiple abx, source of chest pain not identified, + reproducible on palpation, neg ct PE.. 11/26 18:23 Order name: Troponin (emerg Dept Use Only); Complete Time: 20:33 snw 11/26 18:45 Order name: CBC with Diff; Complete Time: 21:04 rn 11/26 18:23 Order name: Chest Single View XRAY; Complete Time: 20:26 snw 11/26 18:45 Order name: Basic Metabolic Panel; Complete Time: 20:38 rn 11/26 20:26 Order name: Manual Differential; Complete Time: 21:04 EDMS 11/26 18:47 Order name: CT Chest For PE Angio; Complete Time: 21:08 rn 11/26 18:23 Order name: EKG; Complete Time: 18:23 snw 11/26 18:23 Order name: EKG - Nurse/Tech; Complete Time: 19:16 snw 11/26 18:45 Order name: IV Start; Complete Time: 19:17 rn EC:49 Rate is 106 beats/min. Rhythm is regular. QRS [place] is Normal. [place] interval is normal. rn QRS interval is normal. QT interval is normal. No Q waves. T waves are Normal. No ST changes noted. Clinical impression: Sinus tachycardia. Interpreted by me. Administered Medications: 19:27 Drug: NS 0.9% 500 ml Route: IV; Rate: bolus; Site: right hand; mb3 21:48 Follow up: IV Status: Completed infusion; IV Intake: 500ml mb3 23:23 Follow up: IV Status: Completed infusion; IV Intake: 500ml mb3 19:27 Drug: Demerol 25 mg Route: IVP; Site: right hand; mb3 21:48 Follow up: Response: No adverse reaction; Pain is decreased mb3 19:27 Drug: Phenergan 25 mg Route: IVP; Site: right hand; mb3 21:47 Follow up: Response: No adverse reaction mb3 21:15 CANCELLED (Duplicate Order): Benadryl 12.5 mg IVP once rn 21:47 Drug: NS 0.9% 1000 ml Route: IV; Rate: 1000 ml; Site: right antecubital; mb3 23:24 Follow up: Response: No adverse reaction; IV Status: Completed infusion; IV Intake: mb3 1000ml 21:47 Drug: Demerol 25 mg Route: IVP; Site: right antecubital; mb3 23:24 Follow up: Response: No adverse reaction mb3 21:47 Drug: Phenergan 12.5 mg Route: IVP; Site: right antecubital; mb3 23:24 Follow up: Response: No adverse reaction mb3 Disposition: 11/26/17 21:17 Discharged to Home. Impression: Chest pain, unspecified, Dehydration. - Condition is Stable. - Discharge Instructions: Nonspecific Chest Pain, Chest Wall Pain, Pain Without a Known Cause. - Medication Reconciliation Form, Thank You Letter, Antibiotic Education, Prescription Opioid Use form. - Follow up: Private Physician; When: As needed; Reason: Recheck today's complaints, Re-evaluation by your physician. - Problem is new. - Symptoms have improved. Signatures: Dispatcher [employer] [facility] Ivonne Ly, DAIRY BACTERIOLOGIST-C DAIRY BACTERIOLOGIST-Csnw Rah Dominguez MD MD rn Barnett, Mark RN RN mb3 Corrections: (The following items were deleted from the chart) 18:49 18:49 CREATININE, SERUM+C.LAB.BRZ ordered. [facility] 21:15 21:15 Benadryl 12.5 mg IVP once ordered. rn rn 21:17 21:17 11/26/2017 21:17 Discharged to Home. Impression: Chest pain, unspecified. rn Condition is Stable. Forms are Medication Reconciliation Form, Thank You Letter, Antibiotic Education, Prescription Opioid Use. Follow up: Private Physician; When: As needed; Reason: Recheck today's complaints, Re-evaluation by your physician. Problem is new. Symptoms have improved. rn 23:25 21:17 11/26/2017 21:17 Discharged to Home. Impression: Chest pain, unspecified; mb3 Dehydration. Condition is Stable. Forms are Medication Reconciliation Form, Thank You Letter, Antibiotic Education, Prescription Opioid Use. Follow up: Private Physician; When: As needed; Reason: Recheck today's complaints, Re-evaluation by your physician. Problem is new. Symptoms have improved. rn
[2017-11-26] MEDS ORDERED: NA CHLORIDE 0.9% 1,000 ML ONE (21:38)
[2017-11-26] MEDS ORDERED: PROMETHAZINE 25 MG/ML VIAL ONE (21:38)
[2017-11-26] MEDS ORDERED: MEPERIDINE HCL 25 MG/0.5 ML ONE (21:38)
[2017-11-26 23:47] VITALS: TEMP 99.1
[2017-11-26 23:49] VITALS: BP 121/93; O2SAT 97
--- NOTE | 2017-11-27 08:48 | EKG ---
Test Date: 2017-11-26 Test Time: 20:41:23 [employer] Worker: MARIA ALEJANDRA MEASUREMENT RESULTS: Intervals: Rate: 106 SC: 138 QRSD: 88 QT: 332 QTc: 441 [place]: P: 56 SC: 138 QRS: 36 T: 12 INTERPRETIVE STATEMENTS: Sinus tachycardia Otherwise normal ECG Compared to ECG 10/08/2017 14:36:24 Sinus rhythm no longer present Sinus arrhythmia no longer present Electronically Signed On 11-27-17 08:47:52 CDT by Miguel Romo
== END 2017-11-26 23:25 | disposition home or self-care (01) ==
LOC: ER 18:09
PROC: 05HD33Z Insertion of Infusion Device into Right Cephalic Vein, Percutaneous Approach (ICD-10-PCS; principal; 2017-11-26)
DX: E86.0 Dehydration (principal); I10 Essential (primary) hypertension; F17.210 Nicotine dependence, cigarettes, uncomplicated
CPT/HCPCS: 36415; 71045; 71275; 80048; 84484; 85025; 93005; 99285; J2175; J2550; J7030; Q9967

== ENCOUNTER 2018-01-24 09:10 | Emergency (ER) | payer OTHER ==
--- OUTSIDE RECORDS SUMMARY | 2018-01-24 09:20 | XMS REPORT | Clinical Summary ---
:1985 Author Organization [facility] Address [address] [place] [address] Phone Care Team Providers Name Role Phone Unavailable Primary Care Provider Unavailable Allergies Active Allergy Reactions Severity Noted Date Comments Sulfamethoxazole-Trimethoprim Hives High 12/23/2016 Levofloxacin Hives High 12/23/2016 Morphine Hives High 12/23/2016 Ketorolac Rash High 12/23/2016 Vancomycin Analogues Rash High 12/23/2016 Sesame Seed Hives 12/23/2016 Ondansetron Hcl (Pf) Nausea And Vomiting 12/23/2016 Current Medications Prescription Sig. Disp. Refills Start Date End Date Status oxyCODONE-acetaminophen Take 1 tablet by Active (PERCOCET) 10-325 mg per mouth every 4 tablet (four) hours as needed for Pain. Active Problems Problem Noted Date Spina bifida (HCC) 12/24/2016 Pyelonephritis 12/23/2016 Social History Tobacco Use Types Packs/Day Years Used Date Current Every Day Smoker Cigarettes 0.5 Tobacco Cessation: Ready to Quit: No Sex Assigned at Date Recorded Not on file Last Filed Vital Signs Not on file Plan of Treatment Not on file Results Not on fileafter 01/23/2017
--- OUTSIDE RECORDS SUMMARY | 2018-01-24 09:20 | XMS REPORT ---
:1985 Author Organization [employer] Care Team Providers Name Role Phone Gamble, Na Provider Role Unavailable Allergies, Adverse Reactions, Alerts Substance Reaction Event Type Toradol Info Not Available Drug Allergy Sulfa Info Not Available Drug Allergy Zofran Info Not Available Drug Allergy Morphine Sulfate ER Info Not Available Drug Allergy Levaquin Info Not Available Drug Allergy Problems Problem Type Condition Code Onset Dates Condition Status Problem Nicotine dependence F17.200 Active Problem Lumbar spina bifida with Q05.2 Active hydrocephalus Problem Dependence on wheelchair Z99.3 Active Problem Fecal incontinence R15.9 Active Problem Foot ulcer L97.509 Active Problem Depression with anxiety F41.8 Active Problem Paraplegia G82.20 Active Problem Constipation K59.00 Active Problem Incontinence of urine R32 Active Problem Nausea alone R11.0 Active Assessment Episodic tension-type headache, not G44.219 Active intractable Assessment HAND COMPOSITOR (ventriculoperitoneal) shunt Z98.2 Active status Assessment Ulcer of left foot, unspecified L97.529 Active ulcer stage Assessment Nonintractable episodic headache, R51 Active unspecified headache type Assessment Depression with anxiety F41.8 Active Problem Episodic tension-type headache, not G44.219 Active intractable Assessment Lumbar spina bifida with Q05.2 Active hydrocephalus Problem Nonintractable episodic headache, R51 Active unspecified headache type Assessment Nausea and vomiting, intractability R11.2 Active of vomiting not specified, unspecified vomiting type Problem HAND COMPOSITOR (ventriculoperitoneal) shunt Z98.2 Active status Medications Medication Code Code Instructions Start End Status Dosage System Date Date Tylenol with [facility] 24419558079 300-60 MG Active 1 tablet as Codeine #4 Orally every 6 needed hrs Macrobid [facility] 83867677620 100 MG Orally Active 1 capsule every 12 hrs with food Pantoprazole ND 45890188165 40 MG Orally Active 1 tablet Sodium Once a day Collagenase [facility] [address]-97 250 UNIT/GM Active 1 application Externally to affected Once a day area Results No Known Results Summary Purpose [employer] Submission
--- OUTSIDE RECORDS SUMMARY | 2018-01-24 09:20 | XMS REPORT ---
:1985 Author Organization [employer] Care Team Providers Name Role Phone Gamble, Na Provider Role Unavailable Allergies No Known Allergies Problems Problem Type Condition Code Onset Dates Condition Status Problem Nicotine dependence F17.200 Active Problem Lumbar spina bifida with Q05.2 Active hydrocephalus Problem Dependence on wheelchair Z99.3 Active Problem Fecal incontinence R15.9 Active Problem Foot ulcer L97.509 Active Problem Depression with anxiety F41.8 Active Problem Paraplegia G82.20 Active Problem Constipation K59.00 Active Problem Incontinence of urine R32 Active Problem Nausea alone R11.0 Active Problem Episodic tension-type headache, not G44.219 Active intractable Problem Nonintractable episodic headache, R51 Active unspecified headache type Problem HEAD RESIDENT (ventriculoperitoneal) shunt Z98.2 Active status Medications No Known Medications Results No Known Results Summary Purpose [employer] Submission
--- OUTSIDE RECORDS SUMMARY | 2018-01-24 09:20 | XMS REPORT ---
:1985 Author Organization [facility] Address [address] [place] [address] [address] [place] [address] Care Team Providers Name Role Phone JAQUELIN GENAO Unavailable Unavailable Problems This patient has no known problems. Allergies, Adverse Reactions, Alerts This patient has no known allergies or adverse reactions. Medications This patient has no known medications. Results Test Description Test Time Test Comments Text Results Atomic Results Result Comments BLOOD CULTURE 2016-12-28 16:22:00 Test Item Value Reference Range Comments CULTURE (BEAKER) (test kkfc=5684) No growth in 5 days BLOOD [id number] 16:22:00 Test Item Value Reference Range Comments CULTURE (BEAKER) (test ppqq=2045) No growth in 5 days (MANUAL DIFFERENTIAL)2016-12-25 22:29:00 Test Item Value Reference Range Comments TOTAL COUNTED (BEAKER) (test bdvi=3321) WBC MORPHOLOGY (BEAKER) (test urmb=679) Normal PLT MORPHOLOGY (BEAKER) (test dwzj=967) Normal RBC MORPHOLOGY (BEAKER) (test hgdl=739) Normal CBC W/PLT COUNT & AUTO [id number] 22:28:00 Test Item Value Reference Range Comments WHITE BLOOD CELL COUNT (BEAKER) (test oeau=061) 7.3 K/ L 4.0-10.0 RED BLOOD CELL COUNT (BEAKER) (test dfik=712) 5.09 M/ L 4.20-5.80 HEMOGLOBIN (BEAKER) (test aber=867) 13.0 GM/DL 13.0-16.8 HEMATOCRIT (BEAKER) (test muel=889) 42.3 % 40.0-50.0 MEAN CORPUSCULAR VOLUME (BEAKER) (test swiv=704) 83.0 fL 82.0-98.0 MEAN CORPUSCULAR HEMOGLOBIN (BEAKER) (test 25.6 pg 27.0-33.0 pebj=660) MEAN CORPUSCULAR HEMOGLOBIN CONC (BEAKER) (test 30.8 GM/DL 32.0-36.0 rqap=137) RED CELL DISTRIBUTION WIDTH (BEAKER) (test 18.0 % 10.3-14.2 mers=252) PLATELET COUNT (BEAKER) (test riwy=454) 331 K/CU MM 150-430 MEAN PLATELET VOLUME (BEAKER) (test tbcq=040) 8.5 fL 6.5-10.5 NUCLEATED RED BLOOD CELLS (BEAKER) (test 0 /100 WBC 0-0 orhn=496) NEUTROPHILS RELATIVE PERCENT (BEAKER) (test 65 % webs=772) LYMPHOCYTES RELATIVE PERCENT (BEAKER) (test 23 % bpeg=126) MONOCYTES RELATIVE PERCENT (BEAKER) (test 8 % polc=597) EOSINOPHILS RELATIVE PERCENT (BEAKER) (test 3 % defi=109) BASOPHILS RELATIVE PERCENT (BEAKER) (test 1 % gbuu=739) NEUTROPHILS ABSOLUTE COUNT (BEAKER) (test 4.75 K/ L 1.80-8.00 dxdl=396) LYMPHOCYTES ABSOLUTE COUNT (BEAKER) (test 1.68 K/ L 1.48-4.50 xdjs=245) MONOCYTES ABSOLUTE COUNT (BEAKER) (test 0.55 K/ L 0.00-1.30 vwpi=159) EOSINOPHILS ABSOLUTE COUNT (BEAKER) (test 0.24 K/ L 0.00-0.50 ypsl=518) BASOPHILS ABSOLUTE COUNT (BEAKER) (test 0.05 K/ L 0.00-0.20 ngpi=058) 0.000.520.000.000.000.00BASI METABOLIC [id number] 11:11:00 Test Item Value Reference Range Comments SODIUM (BEAKER) (test 138 meq/L 136-145 mghh=003) POTASSIUM (BEAKER) (test 4.0 meq/L 3.5-5.1 dufq=962) CHLORIDE (BEAKER) (test 108 meq/L 98-107 okui=219) CO2 (BEAKER) (test 23 meq/L 22-29 dbym=135) BLOOD UREA NITROGEN 11 mg/dL 7-21 (BEAKER) (test lakx=823) CREATININE (BEAKER) (test 0.74 mg/dL 0.57-1.25 epiw=304) GLUCOSE RANDOM (BEAKER) 124 mg/dL 70-105 (test ccgr=890) CALCIUM (BEAKER) (test 8.9 mg/dL 8.4-10.2 dxhq=756) EGFR (BEAKER) (test 150 mL/min/1.73 sq m ESTIMATED GFR IS NOT ojmq=5157) ACCURATE CREATININE CLEARANCE IN PREDICTING GLOMERULAR FILTRATION RATE. ESTIMATED GFR IS NOT APPLICABLE FOR DIALYSIS PATIENTS. URINE [id number] 09:56:00 Test Item Value Reference Range Comments CULTURE (BEAKER) (test lawe=1457) <10,000 col/mL skin marilee COMPREHENSIVE METABOLIC [id number] 08:49:00 Test Item Value Reference Range Comments TOTAL PROTEIN (BEAKER) 7.3 gm/dL 6.0-8.3 (test zjdx=440) ALBUMIN (BEAKER) (test 3.3 g/dL 3.5-5.0 zvut=6141) ALKALINE PHOSPHATASE 89 U/L 40-150 (BEAKER) (test vccz=579) BILIRUBIN TOTAL (BEAKER) 1.4 mg/dL 0.2-1.2 (test hvmx=649) SODIUM (BEAKER) (test 137 meq/L 136-145 itva=868) POTASSIUM (BEAKER) (test 3.7 meq/L 3.5-5.1 jxun=129) CHLORIDE (BEAKER) (test 108 meq/L 98-107 mejq=679) CO2 (BEAKER) (test 17 meq/L 22-29 ghyd=242) BLOOD UREA NITROGEN 12 mg/dL 7-21 (BEAKER) (test quea=313) CREATININE (BEAKER) (test 0.78 mg/dL 0.57-1.25 lshc=453) GLUCOSE RANDOM (BEAKER) 119 mg/dL 70-105 (test gxwh=942) CALCIUM (BEAKER) (test 8.6 mg/dL 8.4-10.2 dqtw=938) AST (SGOT) (BEAKER) (test 13 U/L 5-34 iduj=880) ALT (SGPT) (BEAKER) (test 28 U/L 6-55 ofyy=722) EGFR (BEAKER) (test 141 mL/min/1.73 sq ESTIMATED GFR IS NOT sdfy=5900) m ACCURATE CREATININE CLEARANCE IN PREDICTING GLOMERULAR FILTRATION RATE. ESTIMATED GFR IS NOT APPLICABLE FOR DIALYSIS PATIENTS. CBC W/PLT COUNT & AUTO [id number] 08:46:00 Test Item Value Reference Range Comments WHITE BLOOD CELL COUNT (BEAKER) (test anqp=175) 9.4 K/ L 4.0-10.0 RED BLOOD CELL COUNT (BEAKER) (test qtbq=279) 4.79 M/ L 4.20-5.80 HEMOGLOBIN (BEAKER) (test gvjo=847) 12.8 GM/DL 13.0-16.8 HEMATOCRIT (BEAKER) (test vuwe=327) 40.0 % 40.0-50.0 MEAN CORPUSCULAR VOLUME (BEAKER) (test yltc=836) 83.4 fL 82.0-98.0 MEAN CORPUSCULAR HEMOGLOBIN (BEAKER) (test 26.7 pg 27.0-33.0 cwxq=462) MEAN CORPUSCULAR HEMOGLOBIN CONC (BEAKER) (test 32.0 GM/DL 32.0-36.0 dklo=042) RED CELL DISTRIBUTION WIDTH (BEAKER) (test 18.2 % 10.3-14.2 gzhd=374) PLATELET COUNT (BEAKER) (test hwkv=727) 313 K/CU MM 150-430 MEAN PLATELET VOLUME (BEAKER) (test vdec=596) 8.6 fL 6.5-10.5 NUCLEATED RED BLOOD CELLS (BEAKER) (test 0 /100 WBC 0-0 wcbd=204) NEUTROPHILS RELATIVE PERCENT (BEAKER) (test 70 % vfuc=216) LYMPHOCYTES RELATIVE PERCENT (BEAKER) (test 16 % gwsy=147) MONOCYTES RELATIVE PERCENT (BEAKER) (test 12 % tgyw=003) EOSINOPHILS RELATIVE PERCENT (BEAKER) (test 1 % ucqa=401) BASOPHILS RELATIVE PERCENT (BEAKER) (test 1 % udjy=235) NEUTROPHILS ABSOLUTE COUNT (BEAKER) (test 6.54 K/ L 1.80-8.00 pmdo=896) LYMPHOCYTES ABSOLUTE COUNT (BEAKER) (test 1.50 K/ L 1.48-4.50 zuiy=765) MONOCYTES ABSOLUTE COUNT (BEAKER) (test 1.13 K/ L 0.00-1.30 saxd=577) EOSINOPHILS ABSOLUTE COUNT (BEAKER) (test 0.13 K/ L 0.00-0.50 cpcc=003) BASOPHILS ABSOLUTE COUNT (BEAKER) (test 0.06 K/ L 0.00-0.20 ficd=227) 0.00URINALYSIS W/ [id number] 20:36:00 Test Item Value Reference Range Comments COLOR (BEAKER) (test zqvu=686) Yellow CLARITY (BEAKER) (test jznx=685) Hazy SPECIFIC GRAVITY UA (BEAKER) (test uflq=272) 1.012 1.001-1.035 PH UA (BEAKER) (test zhij=397) 5.5 5.0-8.0 PROTEIN UA (BEAKER) (test ijqz=356) 100 mg/dL Negative GLUCOSE UA (BEAKER) (test guwm=824) Negative Negative KETONES UA (BEAKER) (test aqbg=947) Negative Negative BILIRUBIN UA (BEAKER) (test ibtt=028) Negative Negative BLOOD UA (BEAKER) (test kyks=518) Moderate Negative NITRITE UA (BEAKER) (test xbzl=261) Negative Negative LEUKOCYTE ESTERASE UA (BEAKER) (test nfmq=964) Large Negative UROBILINOGEN UA (BEAKER) (test nlcv=715) 3.0 mg/dL 0.2-1.0 RBC UA (BEAKER) (test vabb=117) 19 /HPF WBC UA (BEAKER) (test dmfg=860) 182 /HPF SOURCE(BEAKER) (test rklp=3536) BASIC METABOLIC [id number] 17:00:00 Test Item Value Reference Range Comments SODIUM (BEAKER) (test 140 meq/L 136-145 zotv=306) POTASSIUM (BEAKER) (test 3.7 meq/L 3.5-5.1 vwdc=831) CHLORIDE (BEAKER) (test 112 meq/L 98-107 fmwp=494) CO2 (BEAKER) (test 17 meq/L 22-29 fepx=898) BLOOD UREA NITROGEN 23 mg/dL 7-21 (BEAKER) (test migv=896) CREATININE (BEAKER) (test 1.00 mg/dL 0.57-1.25 wzub=997) GLUCOSE RANDOM (BEAKER) 102 mg/dL 70-105 (test uuiu=847) CALCIUM (BEAKER) (test 8.7 mg/dL 8.4-10.2 apzr=302) EGFR (BEAKER) (test 106 mL/min/1.73 sq m ESTIMATED GFR IS NOT wymv=9493) ACCURATE CREATININE CLEARANCE IN PREDICTING GLOMERULAR FILTRATION RATE. ESTIMATED GFR IS NOT APPLICABLE FOR DIALYSIS PATIENTS. Specimen slightly ictericCBC W/PLT COUNT & AUTO [id number] 12:18 :00 Test Item Value Reference Range Comments WHITE BLOOD CELL COUNT (BEAKER) (test ohjc=362) 16.4 K/ L 4.0-10.0 RED BLOOD CELL COUNT (BEAKER) (test joxw=022) 5.22 M/ L 4.20-5.80 HEMOGLOBIN (BEAKER) (test ebgh=384) 14.4 GM/DL 13.0-16.8 HEMATOCRIT (BEAKER) (test ugiy=705) 42.9 % 40.0-50.0 MEAN CORPUSCULAR VOLUME (BEAKER) (test yxnd=368) 82.2 fL 82.0-98.0 MEAN CORPUSCULAR HEMOGLOBIN (BEAKER) (test 27.5 pg 27.0-33.0 lqat=968) MEAN CORPUSCULAR HEMOGLOBIN CONC (BEAKER) (test 33.5 GM/DL 32.0-36.0 ccdr=488) RED CELL DISTRIBUTION WIDTH (BEAKER) (test 16.2 % 10.3-14.2 yoib=727) PLATELET COUNT (BEAKER) (test xsws=554) 329 K/CU MM 150-430 MEAN PLATELET VOLUME (BEAKER) (test jibi=915) 8.2 fL 6.5-10.5 NUCLEATED RED BLOOD CELLS (BEAKER) (test 0 /100 WBC 0-0 teib=858) NEUTROPHILS RELATIVE PERCENT (BEAKER) (test 83 % gkwm=407) LYMPHOCYTES RELATIVE PERCENT (BEAKER) (test 7 % rijv=169) MONOCYTES RELATIVE PERCENT (BEAKER) (test 9 % vaco=530) EOSINOPHILS RELATIVE PERCENT (BEAKER) (test 0 % mqxo=502) BASOPHILS RELATIVE PERCENT (BEAKER) (test 0 % kxed=891) NEUTROPHILS ABSOLUTE COUNT (BEAKER) (test 1.62 K/ L 1.80-8.00 qlfh=910) LYMPHOCYTES ABSOLUTE COUNT (BEAKER) (test 1.15 K/ L 1.48-4.50 nomi=146) MONOCYTES ABSOLUTE COUNT (BEAKER) (test 1.56 K/ L 0.00-1.30 pbym=565) EOSINOPHILS ABSOLUTE COUNT (BEAKER) (test 0.01 K/ L 0.00-0.50 hphs=833) BASOPHILS ABSOLUTE COUNT (BEAKER) (test 0.02 K/ L 0.00-0.20 rwpq=836) (MANUAL DIFFERENTIAL)2016-12-23 12:18:00 Test Item Value Reference Range Comments TOTAL COUNTED (BEAKER) (test kakv=5951) WBC MORPHOLOGY (BEAKER) (test xsjf=968) Normal PLT MORPHOLOGY (BEAKER) (test fnwc=454) Normal RBC MORPHOLOGY (BEAKER) (test ufvs=069) Normal
--- OUTSIDE RECORDS SUMMARY | 2018-01-24 09:20 | XMS REPORT ---
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
[2018-01-24] MEDS ORDERED: MEPERIDINE HCL 50 MG/ML AMP ONE (10:08)
[2018-01-24] MEDS ORDERED: PROMETHAZINE 25 MG/ML VIAL ONE (10:08)
--- NOTE | 2018-01-24 10:50 | RAD REPORT ---
EXAM DESCRIPTION: [place] Single View01/24/2018 10:31 am CLINICAL HISTORY: Chest pain COMPARISON: November 2017 FINDINGS: SLIP COVER ESTIMATOR tubing overlies the chest The lungs appear clear of acute infiltrate. The heart is normal size IMPRESSION: No acute abnormalities displayed
--- NOTE | 2018-01-24 11:49 | EDPHYS ---
Physician Documentation [facility] Name: Roland Feldman Jr Age: 32 yrs Sex: Male : 1985 Arrival Date: 01/24/2018 Time: 09:11 Bed 5 Private MD: ED Physician Prince Warner HPI: 01/24 17:05 This 32 yrs old Black Male presents to ER via EMS with complaints of Chest Pain. kdr 17:05 The patient or guardian reports chest pain that is located primarily in the substernal kdr area, anterior chest wall, left. The pain does not radiate. Associated signs and symptoms: The patient has no apparent associated signs or symptoms. The chest pain is described as sharp, stabbing. Duration: The patient or guardian reports a single episode, that is still ongoing, and unchanged. Modifying factors: The symptoms are alleviated by nothing. the symptoms are aggravated by breathing, cough, deep breath, movement, palpation of area, twisting torso. Severity of pain: At its worst the pain was moderate in the emergency department the pain is unchanged. The patient has not experienced similar symptoms in the past. The patient has not recently seen a physician. Was wheeling his wheelchair fast trying to make the bus when he heard/felt a pop in his chest with immediate pain. Historical: - Allergies: 09:48 Amoxicillin; ae1 09:48 Bactrim; ae1 09:48 Ciprofloxacin; ae1 09:48 CLAVULANIC ACID; ae1 09:48 Doxycycline; ae1 09:48 Levofloxacin; ae1 09:48 Morphine; ae1 09:48 sulfamethoxazole; ae1 09:48 Toradol; ae1 09:48 TRIMETHOPRIM; ae1 09:48 Vancomycin; ae1 09:48 Zofran; ae1 - Home Meds: 09:48 metoprolol tartrate 25 mg Oral tab 1 tab 2 times per day [Active]; pantoprazole 40 mg ae1 Oral TbEC 1 tab once daily [Active]; ProMod Protein Oral liqd 30 mL twice a day [Active]; Vitamin C 500 mg Oral tab twice a day [Active]; zinc sulfate 220 (50) mg Oral cap daily [Active]; - PMHx: 09:48 Asthma; Cerebral Palsy; cluster headaches; decubitus ulcers on feet; GERD; ae1 Hydrocephalus; Hypertension; spina bifida; - Immunization history:: Adult Immunizations up to date. - Social history:: Smoking status: Patient/guardian denies using tobacco. - Ebola Screening: : Patient denies travel to an Ebola-affected area in the 21 days before illness onset No symptoms or risks identified at this time. ROS: 17:05 Constitutional: Negative for fever, chills, and weight loss, Eyes: Negative for injury, kdr pain, redness, and discharge, ENT: Negative for injury, pain, and discharge, Neck: Negative for injury, pain, and swelling, Respiratory: Negative for shortness of breath, cough, wheezing, and pleuritic chest pain, Abdomen/GI: Negative for abdominal pain, nausea, vomiting, diarrhea, and constipation, Back: Negative for injury and pain, : Negative for injury, bleeding, discharge, and swelling, MS/Extremity: Negative for injury or new deformity Skin: Negative for injury, rash, and discoloration, Neuro: Negative for headache, weakness, numbness, tingling, and seizure activity. 17:05 Cardiovascular: Positive for chest pain, Negative for edema, orthopnea, palpitations, paroxysmal nocturnal dyspnea, acute changes. Exam: 17:05 Constitutional: This is a well developed, well nourished patient who is awake, alert, kdr and in no acute distress. Head/Face: Normocephalic, atraumatic. Eyes: Pupils equal round and reactive to light, extra-ocular motions intact. Lids and lashes normal. Conjunctiva and sclera are non-icteric and not injected. Cornea within normal limits. Periorbital areas with no swelling, redness, or edema. Neck: Trachea midline, no thyromegaly or masses palpated, and no cervical lymphadenopathy. Supple, full range of motion without nuchal rigidity, or vertebral point tenderness. No Meningismus. Cardiovascular: Regular rate and rhythm with a normal S1 and S2. No gallops, murmurs, or rubs. Normal PMI, no JVD. No pulse deficits. Respiratory: Lungs have equal breath sounds bilaterally, clear to auscultation and percussion. No rales, rhonchi or wheezes noted. No increased work of breathing, no retractions or nasal flaring. Abdomen/GI: Soft, non-tender, with normal bowel sounds. No distension or tympany. No guarding or rebound. No evidence of tenderness throughout. 17:05 Chest/axilla: Inspection: normal, Palpation: tenderness, that is mild, that is moderate, of the mid-sternal area. Vital Signs: 09:13 BP 123 / 76; Pulse 106; Resp 18; Temp 98.6; Pulse Ox 95% on R/A; ae1 10:00 BP 120 / 83; Pulse 98; Resp 17; Pulse Ox 96% on R/A; ae1 11:05 BP 118 / 94; Pulse 111; Resp 18; Pulse Ox 95% on R/A; ae1 MDM: 11:49 Patient medically screened. kdr 17:05 Data reviewed: vital signs, nurses notes, lab test result(s), EKG. Counseling: I had a kdr detailed discussion with the patient and/or guardian regarding: the historical points, exam findings, and any diagnostic results supporting the discharge/admit diagnosis, lab results, radiology results, the need for outpatient follow up. 01/24 10:00 Order name: CXR XRAY; Complete Time: 11:48 kdr Administered Medications: 10:13 Drug: Demerol 50 mg Route: IM; Site: left deltoid; ae1 11:20 Follow up: Response: Pain is decreased ae1 10:13 Drug: Phenergan 25 mg Route: IM; Site: right deltoid; ae1 15:17 Follow up: Response: No adverse reaction ae1 Disposition: 01/24/18 11:49 Discharged to Home. Impression: Chest pain on breathing, Chest pain, unspecified. - Condition is Stable. - Discharge Instructions: Chest Wall Pain, [id number], Nonspecific Chest Pain, [id number]. - Prescriptions for Robaxin 500 mg Oral Tablet - take 2 tablets by ORAL route every 6 hours As needed; 20 tablet. Tramadol 50 mg Oral Tablet - take 1 tablet by ORAL route every 8 hours as needed; 12 tablet. Ibuprofen 800 mg Oral Tablet - take 1 tablet by ORAL route every 8 hours As needed take with food; 30 tablet. - Medication Reconciliation Form, Thank You Letter form. - Follow up: Private Physician; When: 2 - 3 days; Reason: If symptoms return, Further diagnostic work-up, Recheck today's complaints, Continuance of care, Re-evaluation by your physician. - Problem is new. - Symptoms have improved. Signatures: Dispatcher [employer] EDMS Prince Warner MD MD kdr Chucho Tipton RN RN ae1 Corrections: (The following items were deleted from the chart) 12:16 11:49 01/24/2018 11:49 Discharged to Home. Impression: Chest pain on breathing; Chest ae1 pain, unspecified. Condition is Stable. Forms are Medication Reconciliation Form, Thank You Letter, Antibiotic Education, Prescription Opioid Use. Follow up: Private Physician; When: 2 - 3 days; Reason: If symptoms return, Further diagnostic work-up, Recheck today's complaints, Continuance of care, Re-evaluation by your physician. Problem is new. Symptoms have improved. kdr
--- NOTE | 2018-01-24 11:49 | ER ---
Nurse's Notes [facility] Name: Roland Feldman Jr Age: 32 yrs Sex: Male : 1985 Arrival Date: 01/24/2018 Time: 09:11 Bed 5 Private MD: Diagnosis: Chest pain on breathing;Chest pain, unspecified Presentation: 01/24 09:12 Presenting complaint: EMS states: EMS states patient was wheeling himself in his ae1 wheelchair when he felt chest pain to the left chest wall. Transition of care: patient was not received from another setting of care. Onset of symptoms was January 24, 2018 at 08:30. Risk Assessment: Do you want to hurt yourself or someone else? Patient reports no desire to harm self or others. 09:12 Method Of Arrival: EMS: [facility] ae1 09:12 Acuity: YUKI 3 ae1 10:47 Initial Sepsis Screen: Does the patient meet any 2 criteria? No. Patient's initial ae1 sepsis screen is negative. Does the patient have a suspected source of infection? No. Patient's initial sepsis screen is negative. Care prior to arrival: None. Triage Assessment: 09:14 General: Appears in no apparent distress. comfortable, obese, Behavior is calm, ae1 cooperative. Pain: Complains of pain in left clavicle, anterior aspect of left upper chest and left breast. EENT: No signs and/or symptoms were reported regarding the EENT system. Neuro: Level of Consciousness is awake, alert, obeys commands, Oriented to person, place, time, situation. Cardiovascular: Patient's skin is warm and dry. Respiratory: Airway is patent Respiratory effort is even, unlabored, Respiratory pattern is regular, symmetrical. GI: Abdomen is round obese. Historical: - Allergies: 09:48 Amoxicillin; ae1 09:48 Bactrim; ae1 09:48 Ciprofloxacin; ae1 09:48 CLAVULANIC ACID; ae1 09:48 Doxycycline; ae1 09:48 Levofloxacin; ae1 09:48 Morphine; ae1 09:48 sulfamethoxazole; ae1 09:48 Toradol; ae1 09:48 TRIMETHOPRIM; ae1 09:48 Vancomycin; ae1 09:48 Zofran; ae1 - Home Meds: 09:48 metoprolol tartrate 25 mg Oral tab 1 tab 2 times per day [Active]; pantoprazole 40 mg ae1 Oral TbEC 1 tab once daily [Active]; ProMod Protein Oral liqd 30 mL twice a day [Active]; Vitamin C 500 mg Oral tab twice a day [Active]; zinc sulfate 220 (50) mg Oral cap daily [Active]; - PMHx: 09:48 Asthma; Cerebral Palsy; cluster headaches; decubitus ulcers on feet; GERD; ae1 Hydrocephalus; Hypertension; spina bifida; - Immunization history:: Adult Immunizations up to date. - Social history:: Smoking status: Patient/guardian denies using tobacco. - Ebola Screening: : Patient denies travel to an Ebola-affected area in the 21 days before illness onset No symptoms or risks identified at this time. Screenin:51 Abuse screen: Denies threats or abuse. Nutritional screening: No deficits noted. ae1 Tuberculosis screening: No symptoms or risk factors identified. Fall Risk Fall in past 12 months (25 points). Secondary diagnosis (15 points) impaired mobility, No IV (0 pts). Ambulatory Aid- Crutches/Cane/Walker (15 pts). Gait-. Assessment: 09:46 Reassessment: Provider at bedside discussing plan of care. ae1 09:49 Derm: Wound noted right foot and left foot, foot wounds are wrapped in gauze, ae1 kerlix,Kike wrap and shoe covers. 10:47 Pain: Pain does not radiate. Pain began suddenly. ae1 Vital Signs: 09:13 BP 123 / 76; Pulse 106; Resp 18; Temp 98.6; Pulse Ox 95% on R/A; ae1 10:00 BP 120 / 83; Pulse 98; Resp 17; Pulse Ox 96% on R/A; ae1 11:05 BP 118 / 94; Pulse 111; Resp 18; Pulse Ox 95% on R/A; ae1 ED Course: 09:11 Patient arrived in ED. ae1 09:13 Triage completed. ae1 09:24 Prince Warner MD is Attending Physician. kdr 09:46 Chucho Tipton, NAIF is Primary Nurse. ae1 09:50 Arm band placed on right wrist. EKG completed in triage. Results shown to MD. ae1 09:50 Bed in low position. Call light in reach. Side rails up X2. jumpbasting facing baster on. Pulse ae1 ox on. NIBP on. 10:31 CXR XRAY In Process Unspecified. EDMS 10:47 No provider procedures requiring assistance completed. Patient maintains SpO2 ae1 saturation greater than 95% on room air. 12:16 Patient did not have IV access during this emergency room visit. ae1 Administered Medications: 10:13 Drug: Demerol 50 mg Route: IM; Site: left deltoid; ae1 11:20 Follow up: Response: Pain is decreased ae1 10:13 Drug: Phenergan 25 mg Route: IM; Site: right deltoid; ae1 15:17 Follow up: Response: No adverse reaction ae1 Output: 11:04 Urine: 400ml ([place]); Total: 400ml. ae1 Outcome: 11:49 Discharge ordered by . kdr 12:16 Discharged to home via wheelchair. ae1 12:16 Condition: stable 12:16 Discharge instructions given to patient, Instructed on discharge instructions, follow up and referral plans. medication usage, Demonstrated understanding of instructions, Prescriptions given X 3. 12:16 Patient left the ED. ae1 Signatures: Dispatcher [employer] EDMS Prince Warner MD MD kdr Chucho Tipton RN RN ae1 Corrections: (The following items were deleted from the chart) 09:49 09:14 Derm: Skin is normal, ae1 ae1 10:47 10:34 Blood Glucose: Blood Glucose Lobmvou=003 mg/dL. ae1 ae1
[2018-01-24 12:20] VITALS: TEMP 98.6
[2018-01-24 12:23] VITALS: BP 118/94; O2SAT 95
== END 2018-01-24 12:16 | disposition home or self-care (01) ==
LOC: ER 09:10
DX: R07.9 Chest pain, unspecified (principal); I10 Essential (primary) hypertension; G80.9 Cerebral palsy, unspecified; Z88.1 Allergy status to other antibiotic agents; Z88.3 Allergy status to other anti-infective agents; Z88.5 Allergy status to narcotic agent; Z88.6 Allergy status to analgesic agent; Z88.8 Allergy status to other drugs, medicaments and biological substances
CPT/HCPCS: 71045; 96372; 99285; J2175; J2550

== ENCOUNTER 2018-02-06 10:54 | Emergency (ER) | payer OTHER ==
--- OUTSIDE RECORDS SUMMARY | 2018-02-06 10:56 | XMS REPORT | Clinical Summary ---
:1985 Author Organization [facility] Address [address] [place] [address] Phone Care Team Providers Name Role Phone [...] Not on file Results Not on fileafter 02/05/2017
--- OUTSIDE RECORDS SUMMARY | 2018-02-06 10:57 | XMS REPORT ---
[...] tension-type headache, not G44.219 Active intractable Assessment OVEN TENDER (ventriculoperitoneal) shunt Z98.2 Active status Assessment Ulcer [...] vomiting not specified, unspecified vomiting type Problem OVEN TENDER (ventriculoperitoneal) shunt Z98.2 Active status Medications Medication Code Code Instructions Start End Status Dosage System Date Date Tylenol with [facility] 39210460193 300-60 MG Active 1 tablet as Codeine #4 Orally every 6 needed hrs Macrobid [facility] 23006174730 100 MG Orally Active 1 capsule every 12 hrs with food Pantoprazole ND 16069890224 40 MG Orally Active 1 tablet Sodium Once a day Collagenase [facility] [address]-30 250 UNIT/GM Active 1 application Externally to affected Once a day area Results No Known Results Summary Purpose [employer] Submission
--- OUTSIDE RECORDS SUMMARY | 2018-02-06 10:57 | XMS REPORT ---
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
--- OUTSIDE RECORDS SUMMARY | 2018-02-06 10:57 | XMS REPORT ---
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
--- OUTSIDE RECORDS SUMMARY | 2018-02-06 10:57 | XMS REPORT ---
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 Assessment Ulcer of left foot, unspecified L97.529 Active ulcer stage Problem Foot ulcer L97.509 Active Assessment Nonintractable episodic headache, R51 Active unspecified headache type Problem Constipation K59.00 Active Assessment Episodic tension-type headache, not G44.219 Active intractable Problem Paraplegia G82.20 Active Problem Incontinence of urine R32 Active Problem Nausea alone R11.0 Active Problem 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 Problem Mental disorder, not otherwise F99 Active specified Assessment Bipolar depression F31.30 Active Assessment Lumbar spina bifida with Q05.2 Active hydrocephalus Problem Bipolar depression F31.30 Active Assessment 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 (ventriculoperitoneal) shunt Z98.2 Active status Problem Depression with anxiety F41.8 Active Problem Fecal incontinence R15.9 Active Problem Nausea and vomiting, intractability R11.2 Active of vomiting not specified, unspecified vomiting type Problem Ulcer of left foot, unspecified L97.529 Active ulcer stage Problem Episodic tension-type headache, not G44.219 Active intractable Problem Nonintractable episodic headache, R51 Active unspecified headache type Assessment Depression with anxiety F41.8 Active Problem Dependence on wheelchair Z99.3 Active Problem Lumbar spina bifida with Q05.2 Active hydrocephalus Problem 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 [address]-63 250 UNIT/GM Active 1 application Externally to affected Once a day area Macrobid [facility] 18747158227 100 MG Orally Active 1 capsule every 12 hrs with food Tylenol with [facility] 81572363737 300-60 MG Active 1 tablet as Codeine #4 Orally every 6 needed hrs Citalopram [facility] 88684812447 10 MG Orally January Active 1 tablet Hydrobromide Once a day [address] [facility] 99662753137 40 MG Orally Active 1 tablet Sodium Once a day Seroquel [facility] 03144289093 25 MG Orally January Active 1 tablet Once a day at 16, bedtime 2017 Results No Known Results Summary Purpose [employer] Submission
--- OUTSIDE RECORDS SUMMARY | 2018-02-06 10:57 | XMS REPORT ---
:1985 [facility] [address] Lee [address] [place] [id number] Care Team Providers Name Role Phone CHADWICKJAQUELIN Unavailable Unavailable Problems This patient has no known problems. Allergies, Adverse Reactions, Alerts This patient has no known allergies or adverse reactions. Medications This patient has no known medications. Results Test Description Test Time Test Comments Text Results Atomic Results Result Comments BLOOD CULTURE 2016-12-28 16:22:00 Test Item Value Reference Range Comments CULTURE (BEAKER) (test xccm=1993) No growth in 5 days BLOOD [id number] 16:22:00 Test Item Value Reference Range Comments CULTURE (BEAKER) (test syuw=6273) No growth in 5 days (MANUAL DIFFERENTIAL)2016-12-25 22:29:00 Test Item Value Reference Range Comments TOTAL COUNTED (BEAKER) (test ixvn=0512) WBC MORPHOLOGY (BEAKER) (test zlvr=984) Normal PLT MORPHOLOGY (BEAKER) (test egue=241) Normal RBC MORPHOLOGY (BEAKER) (test yvgf=071) Normal CBC W/PLT COUNT & AUTO [id number] 22:28:00 Test Item Value Reference Range Comments WHITE BLOOD CELL COUNT (BEAKER) (test wclz=241) 7.3 K/ L 4.0-10.0 RED BLOOD CELL COUNT (BEAKER) (test jqhf=739) 5.09 M/ L 4.20-5.80 HEMOGLOBIN (BEAKER) (test tsor=302) 13.0 GM/DL 13.0-16.8 HEMATOCRIT (BEAKER) (test gsdu=530) 42.3 % 40.0-50.0 MEAN CORPUSCULAR VOLUME (BEAKER) (test pwsj=151) 83.0 fL 82.0-98.0 MEAN CORPUSCULAR HEMOGLOBIN (BEAKER) (test 25.6 pg 27.0-33.0 oaxp=239) MEAN CORPUSCULAR HEMOGLOBIN CONC (BEAKER) (test 30.8 GM/DL 32.0-36.0 aunr=574) RED CELL DISTRIBUTION WIDTH (BEAKER) (test 18.0 % 10.3-14.2 dzbu=509) PLATELET COUNT (BEAKER) (test cecy=400) 331 K/CU MM 150-430 MEAN PLATELET VOLUME (BEAKER) (test xwbg=874) 8.5 fL 6.5-10.5 NUCLEATED RED BLOOD CELLS (BEAKER) (test 0 /100 WBC 0-0 dwqu=457) NEUTROPHILS RELATIVE PERCENT (BEAKER) (test 65 % gbyk=664) LYMPHOCYTES RELATIVE PERCENT (BEAKER) (test 23 % vohn=529) MONOCYTES RELATIVE PERCENT (BEAKER) (test 8 % dyqr=594) EOSINOPHILS RELATIVE PERCENT (BEAKER) (test 3 % evza=576) BASOPHILS RELATIVE PERCENT (BEAKER) (test 1 % etyg=252) NEUTROPHILS ABSOLUTE COUNT (BEAKER) (test 4.75 K/ L 1.80-8.00 hfqj=453) LYMPHOCYTES ABSOLUTE COUNT (BEAKER) (test 1.68 K/ L 1.48-4.50 vges=028) MONOCYTES ABSOLUTE COUNT (BEAKER) (test 0.55 K/ L 0.00-1.30 qpaw=645) EOSINOPHILS ABSOLUTE COUNT (BEAKER) (test 0.24 K/ L 0.00-0.50 wpik=397) BASOPHILS ABSOLUTE COUNT (BEAKER) (test 0.05 K/ L 0.00-0.20 iold=675) [id number] METABOLIC [id number] 11:11:00 Test Item Value Reference Range Comments SODIUM (BEAKER) (test 138 meq/L 136-145 fuxi=473) POTASSIUM (BEAKER) (test 4.0 meq/L 3.5-5.1 ezba=493) CHLORIDE (BEAKER) (test 108 meq/L 98-107 ywvc=095) CO2 (BEAKER) (test 23 meq/L 22-29 inow=168) BLOOD UREA NITROGEN 11 mg/dL 7-21 (BEAKER) (test qwjk=293) CREATININE (BEAKER) (test 0.74 mg/dL 0.57-1.25 zejm=490) GLUCOSE RANDOM (BEAKER) 124 mg/dL 70-105 (test tuwh=158) CALCIUM (BEAKER) (test 8.9 mg/dL 8.4-10.2 xbvp=760) EGFR (BEAKER) (test 150 mL/min/1.73 sq m ESTIMATED GFR IS NOT ihfg=8768) ACCURATE CREATININE CLEARANCE IN PREDICTING GLOMERULAR FILTRATION RATE. ESTIMATED GFR IS NOT APPLICABLE FOR DIALYSIS PATIENTS. URINE [id number] 09:56:00 Test Item Value Reference Range Comments CULTURE (BEAKER) (test uiaq=7369) <10,000 col/mL skin marilee COMPREHENSIVE METABOLIC [id number] 08:49:00 Test Item Value Reference Range Comments TOTAL PROTEIN (BEAKER) 7.3 gm/dL 6.0-8.3 (test lwzt=767) ALBUMIN (BEAKER) (test 3.3 g/dL 3.5-5.0 yvgx=0713) ALKALINE PHOSPHATASE 89 U/L 40-150 (BEAKER) (test hbsx=031) BILIRUBIN TOTAL (BEAKER) 1.4 mg/dL 0.2-1.2 (test ckcx=383) SODIUM (BEAKER) (test 137 meq/L 136-145 hwkx=448) POTASSIUM (BEAKER) (test 3.7 meq/L 3.5-5.1 cyjq=494) CHLORIDE (BEAKER) (test 108 meq/L 98-107 wcow=078) CO2 (BEAKER) (test 17 meq/L 22-29 qhkq=942) BLOOD UREA NITROGEN 12 mg/dL 7-21 (BEAKER) (test esxa=352) CREATININE (BEAKER) (test 0.78 mg/dL 0.57-1.25 gbpe=306) GLUCOSE RANDOM (BEAKER) 119 mg/dL 70-105 (test tfqy=802) CALCIUM (BEAKER) (test 8.6 mg/dL 8.4-10.2 jlqp=311) AST (SGOT) (BEAKER) (test 13 U/L 5-34 pmer=311) ALT (SGPT) (BEAKER) (test 28 U/L 6-55 jcjc=930) EGFR (BEAKER) (test 141 mL/min/1.73 sq ESTIMATED GFR IS NOT tkio=4106) m ACCURATE CREATININE CLEARANCE IN PREDICTING GLOMERULAR FILTRATION RATE. ESTIMATED GFR IS NOT APPLICABLE FOR DIALYSIS PATIENTS. CBC W/PLT COUNT & AUTO [id number] 08:46:00 Test Item Value Reference Range Comments WHITE BLOOD CELL COUNT (BEAKER) (test aenp=024) 9.4 K/ L 4.0-10.0 RED BLOOD CELL COUNT (BEAKER) (test kaek=068) 4.79 M/ L 4.20-5.80 HEMOGLOBIN (BEAKER) (test eqes=056) 12.8 GM/DL 13.0-16.8 HEMATOCRIT (BEAKER) (test iudh=717) 40.0 % 40.0-50.0 MEAN CORPUSCULAR VOLUME (BEAKER) (test ejph=179) 83.4 fL 82.0-98.0 MEAN CORPUSCULAR HEMOGLOBIN (BEAKER) (test 26.7 pg 27.0-33.0 trzg=155) MEAN CORPUSCULAR HEMOGLOBIN CONC (BEAKER) (test 32.0 GM/DL 32.0-36.0 nuey=469) RED CELL DISTRIBUTION WIDTH (BEAKER) (test 18.2 % 10.3-14.2 ayvw=333) PLATELET COUNT (BEAKER) (test lakp=946) 313 K/CU MM 150-430 MEAN PLATELET VOLUME (BEAKER) (test ntjy=825) 8.6 fL 6.5-10.5 NUCLEATED RED BLOOD CELLS (BEAKER) (test 0 /100 WBC 0-0 iyos=139) NEUTROPHILS RELATIVE PERCENT (BEAKER) (test 70 % bbfj=600) LYMPHOCYTES RELATIVE PERCENT (BEAKER) (test 16 % ovnz=446) MONOCYTES RELATIVE PERCENT (BEAKER) (test 12 % bimh=298) EOSINOPHILS RELATIVE PERCENT (BEAKER) (test 1 % hmfc=682) BASOPHILS RELATIVE PERCENT (BEAKER) (test 1 % hsqd=769) NEUTROPHILS ABSOLUTE COUNT (BEAKER) (test 6.54 K/ L 1.80-8.00 paep=033) LYMPHOCYTES ABSOLUTE COUNT (BEAKER) (test 1.50 K/ L 1.48-4.50 qerk=918) MONOCYTES ABSOLUTE COUNT (BEAKER) (test 1.13 K/ L 0.00-1.30 gynp=834) EOSINOPHILS ABSOLUTE COUNT (BEAKER) (test 0.13 K/ L 0.00-0.50 mysl=063) BASOPHILS ABSOLUTE COUNT (BEAKER) (test 0.06 K/ L 0.00-0.20 wnvl=919) 0.00URINALYSIS W/ [id number] 20:36:00 Test Item Value Reference Range Comments COLOR (BEAKER) (test mfyj=313) Yellow CLARITY (BEAKER) (test ohpg=265) Hazy SPECIFIC GRAVITY UA (BEAKER) (test aads=588) 1.012 1.001-1.035 PH UA (BEAKER) (test zdbv=453) 5.5 5.0-8.0 PROTEIN UA (BEAKER) (test znby=936) 100 mg/dL Negative GLUCOSE UA (BEAKER) (test mbjp=793) Negative Negative KETONES UA (BEAKER) (test wpaj=160) Negative Negative BILIRUBIN UA (BEAKER) (test jogj=464) Negative Negative BLOOD UA (BEAKER) (test jbae=772) Moderate Negative NITRITE UA (BEAKER) (test wojo=045) Negative Negative LEUKOCYTE ESTERASE UA (BEAKER) (test jbxc=317) Large Negative UROBILINOGEN UA (BEAKER) (test kvus=107) 3.0 mg/dL 0.2-1.0 RBC UA (BEAKER) (test ndef=919) 19 /HPF WBC UA (BEAKER) (test kpgc=462) 182 /HPF SOURCE(BEAKER) (test livh=5373) BASIC METABOLIC [id number] 17:00:00 Test Item Value Reference Range Comments SODIUM (BEAKER) (test 140 meq/L 136-145 eihk=562) POTASSIUM (BEAKER) (test 3.7 meq/L 3.5-5.1 rklt=397) CHLORIDE (BEAKER) (test 112 meq/L 98-107 yxgw=863) CO2 (BEAKER) (test 17 meq/L 22-29 pnqt=176) BLOOD UREA NITROGEN 23 mg/dL 7-21 (BEAKER) (test zcyj=022) CREATININE (BEAKER) (test 1.00 mg/dL 0.57-1.25 uzrp=716) GLUCOSE RANDOM (BEAKER) 102 mg/dL 70-105 (test fxoz=307) CALCIUM (BEAKER) (test 8.7 mg/dL 8.4-10.2 szun=435) EGFR (BEAKER) (test 106 mL/min/1.73 sq m ESTIMATED GFR IS NOT nnsf=6867) ACCURATE CREATININE CLEARANCE IN PREDICTING GLOMERULAR FILTRATION RATE. ESTIMATED GFR IS NOT APPLICABLE FOR DIALYSIS PATIENTS. Specimen slightly ictericCBC W/PLT COUNT & AUTO [id number] 12:18 :00 Test Item Value Reference Range Comments WHITE BLOOD CELL COUNT (BEAKER) (test vjcj=191) 16.4 K/ L 4.0-10.0 RED BLOOD CELL COUNT (BEAKER) (test naib=583) 5.22 M/ L 4.20-5.80 HEMOGLOBIN (BEAKER) (test vmxz=040) 14.4 GM/DL 13.0-16.8 HEMATOCRIT (BEAKER) (test dabp=834) 42.9 % 40.0-50.0 MEAN CORPUSCULAR VOLUME (BEAKER) (test gwtt=533) 82.2 fL 82.0-98.0 MEAN CORPUSCULAR HEMOGLOBIN (BEAKER) (test 27.5 pg 27.0-33.0 ymdu=538) MEAN CORPUSCULAR HEMOGLOBIN CONC (BEAKER) (test 33.5 GM/DL 32.0-36.0 rgtw=724) RED CELL DISTRIBUTION WIDTH (BEAKER) (test 16.2 % 10.3-14.2 bzzi=679) PLATELET COUNT (BEAKER) (test ngrr=320) 329 K/CU MM 150-430 MEAN PLATELET VOLUME (BEAKER) (test dvwi=556) 8.2 fL 6.5-10.5 NUCLEATED RED BLOOD CELLS (BEAKER) (test 0 /100 WBC 0-0 djss=691) NEUTROPHILS RELATIVE PERCENT (BEAKER) (test 83 % icag=349) LYMPHOCYTES RELATIVE PERCENT (BEAKER) (test 7 % uqqy=061) MONOCYTES RELATIVE PERCENT (BEAKER) (test 9 % btmc=028) EOSINOPHILS RELATIVE PERCENT (BEAKER) (test 0 % ayqn=710) BASOPHILS RELATIVE PERCENT (BEAKER) (test 0 % bhtx=599) NEUTROPHILS ABSOLUTE COUNT (BEAKER) (test 1.62 K/ L 1.80-8.00 yinm=222) LYMPHOCYTES ABSOLUTE COUNT (BEAKER) (test 1.15 K/ L 1.48-4.50 zdra=172) MONOCYTES ABSOLUTE COUNT (BEAKER) (test 1.56 K/ L 0.00-1.30 clvi=587) EOSINOPHILS ABSOLUTE COUNT (BEAKER) (test 0.01 K/ L 0.00-0.50 pgpf=590) BASOPHILS ABSOLUTE COUNT (BEAKER) (test 0.02 K/ L 0.00-0.20 byjl=231) (MANUAL DIFFERENTIAL)2016-12-23 12:18:00 Test Item Value Reference Range Comments TOTAL COUNTED (BEAKER) (test rsnp=7732) WBC MORPHOLOGY (BEAKER) (test ltkp=149) Normal PLT MORPHOLOGY (BEAKER) (test jkqd=653) Normal RBC MORPHOLOGY (BEAKER) (test xheg=740) Normal
[2018-02-06] MEDS ORDERED: FENTANYL CITR 100 MCG/2 ML ONE (11:41)
[2018-02-06 11:59] LABS: Absolute Lymphocytes (CBC) 1.4 K/uL (0.7-4.9); Absolute Monocytes 0.7 K/uL (0.1-1.3); Absolute Neutrophil 6.9 K/uL (1.8-8.0); Basophils % 0.5 % (0-1.3); Eosinophils % 1.2 % (0-4.4); Hematocrit 48.4 % (39.6-49.0); MCH 27.7 pg (27.0-35.0); MCV 82.5 fL (80-100); MPV 8.3 fL (7.6-11.3); Monocytes % 7.2 % (3.3-12.3); RBC Red Blood Cell Count 5.87 M/uL (4.33-5.43)
--- NOTE | 2018-02-06 12:37 | EDPHYS ---
Physician Documentation [facility] Name: Roland Feldman Jr Age: 32 yrs Sex: Male : 1985 Arrival Date: 02/06/2018 Time: 10:57 Bed 19 Private MD: Asiya Gamble ED Physician Prince Warner HPI: 02/06 11:14 This 32 yrs old Black Male presents to ER via Ambulatory with complaints of Needs kav Urinary Catheter Replacement. 11:20 The patient presents with a Presley catheter problem, "...needs changed out and cloudy kav urine", flank pain, described as dull, waxing/waning, of the left mid back and right mid back, that does not radiate. Onset: The symptoms/episode began/occurred acutely. 11:22 Onset: The symptoms/episode began/occurred acutely, 2 day(s) ago. Modifying factors: kav The symptoms are alleviated by nothing, the symptoms are aggravated by nothing. Severity of symptoms: At their worst the symptoms were severe, a " 7" out of "10". 11:23 The patient has experienced similar episodes in the past, chronically. The patient has kav not recently seen a physician. Historical: - Allergies: 11:03 Amoxicillin; hj 11:03 Bactrim; hj 11:03 Ciprofloxacin; hj 11:03 CLAVULANIC ACID; hj 11:03 Doxycycline; hj 11:03 Levofloxacin; hj 11:03 Morphine; hj 11:03 sulfamethoxazole; hj 11:03 Toradol; hj 11:03 TRIMETHOPRIM; hj 11:03 Vancomycin; hj 11:03 Zofran; hj - Home Meds: 11:03 metoprolol tartrate 25 mg Oral tab 1 tab 2 times per day [Active]; pantoprazole 40 mg hj Oral TbEC 1 tab once daily [Active]; ProMod Protein Oral liqd 30 mL twice a day [Active]; Vitamin C 500 mg Oral tab twice a day [Active]; zinc sulfate 220 (50) mg Oral cap daily [Active]; - PMHx: 11:03 Asthma; Cerebral Palsy; cluster headaches; decubitus ulcers on feet; GERD; hj Hydrocephalus; Hypertension; spina bifida; - PSHx: 11:03 Unable to obtain; hj - Immunization history:: Adult Immunizations up to date. - Social history:: Smoking status: Patient/guardian denies using tobacco, Patient/guardian denies using alcohol. - Ebola Screening: : Patient negative for fever greater than or equal to 101.5 degrees Fahrenheit, and additional compatible Ebola Virus Disease symptoms Patient denies exposure to infectious person Patient denies travel to an Ebola-affected area in the 21 days before illness onset. - Family history:: not pertinent. - Hospitalizations: : No recent hospitalization is reported. ROS: 11:26 Constitutional: Negative for fever, chills, and weight loss, Eyes: Negative for injury, kav pain, redness, and discharge, ENT: Negative for injury, pain, and discharge, Neck: Negative for injury, pain, and swelling, Cardiovascular: Negative for chest pain, palpitations, and edema, Respiratory: Negative for shortness of breath, cough, wheezing, and pleuritic chest pain, Abdomen/GI: Negative for abdominal pain, nausea, vomiting, diarrhea, and constipation, Back: Negative for injury and pain, MS/Extremity: Negative for injury and deformity, Skin: Negative for injury, rash, and discoloration, Neuro: Negative for headache, weakness, numbness, tingling, and seizure, Psych: Negative for depression, anxiety, suicide ideation, homicidal ideation, and hallucinations, Allergy/Immunology: Negative for hives, rash, and allergies, Endocrine: Negative for neck swelling, polydipsia, polyuria, polyphagia, and marked weight changes, Hematologic/Lymphatic: Negative for swollen nodes, abnormal bleeding, and unusual bruising. 11:26 : Positive for flank pain. Exam: 11:26 Constitutional: This is a well developed, well nourished patient who is awake, alert, kav and in no acute distress. Head/Face: Normocephalic, atraumatic. Eyes: Pupils equal round and reactive to light, extra-ocular motions intact. Lids and lashes normal. Conjunctiva and sclera are non-icteric and not injected. Cornea within normal limits. Periorbital areas with no swelling, redness, or edema. ENT: Nares patent. No nasal discharge, no septal abnormalities noted. Tympanic membranes are normal and external auditory canals are clear. Oropharynx with no redness, swelling, or masses, exudates, or evidence of obstruction, uvula midline. Mucous membranes moist. Neck: Trachea midline, no thyromegaly or masses palpated, and no cervical lymphadenopathy. Supple, full range of motion without nuchal rigidity, or vertebral point tenderness. No Meningismus. Chest/axilla: Normal chest wall appearance and motion. Nontender with no deformity. No lesions are appreciated. Cardiovascular: Regular rate and rhythm with a normal S1 and S2. No gallops, murmurs, or rubs. Normal PMI, no JVD. No pulse deficits. Respiratory: Lungs have equal breath sounds bilaterally, clear to auscultation and percussion. No rales, rhonchi or wheezes noted. No increased work of breathing, no retractions or nasal flaring. Abdomen/GI: Soft, non-tender, with normal bowel sounds. No distension or tympany. No guarding or rebound. No evidence of tenderness throughout. Back: No spinal tenderness. No costovertebral tenderness. Full range of motion. Skin: Warm, dry with normal turgor. Normal color with no rashes, no lesions, and no evidence of cellulitis. MS/ Extremity: Pulses equal, no cyanosis. Neurovascular intact. Full, normal range of motion. Neuro: Awake and alert, GCS 15, oriented to person, place, time, and situation. Cranial nerves II-XII grossly intact. Motor strength 5/5 in all extremities. Sensory grossly intact. Cerebellar exam normal. Normal gait. Psych: Awake, alert, with orientation to person, place and time. Behavior, mood, and affect are within normal limits. 11:26 : CVA tenderness, noted bilaterally, a presley is noted. Vital Signs: 11:03 BP 129 / 88; Pulse 103; Resp 18; Temp 98.7(TE); Pulse Ox 98% on R/A; Weight 131.54 kg; Height 4 ft. 11 in. (149.86 cm); Pain 8/10; 12:16 BP 115 / 76 Sitting; Pulse 96; Resp 18; Pulse Ox 97% on R/A; mh5 11:03 Body Mass Index 58.57 (131.54 kg, 149.86 cm) Procedures: 12:41 Performed Presley Catheter replacement 16 fr suprapubic. [facility] MDM: 11:13 Medical screening is not applicable. [facility] 12:41 Data reviewed: vital signs, nurses notes, lab test result(s), CBC, urinalysis. [facility] 02/06 11:16 Order name: CBC with Diff; Complete Time: 12:06 [facility] 02/06 12:37 Order name: Urine Culture [facility] 02/06 12:37 Order name: Urine Microscopic Only [facility] 02/06 12:38 Order name: Urine Dipstick--Ancillary (enter results) 02/06 11:16 Order name: Urine Dipstick-Ancillary (obtain specimen); Complete Time: 12:35 [facility] 02/06 12:35 Interpretation: Abnormal. kav Administered Medications: 11:34 CANCELLED (Other Intervention Used): fentaNYL (PF) 25 mcg IVP once ed1 11:51 Drug: fentaNYL (PF) 25 mcg Route: IM; Site: right deltoid; ed1 13:37 Follow up: Response: No adverse reaction aj1 12:59 Drug: Rocephin (cefTRIAXone) 1 grams Route: IM; Site: right gluteus; aj1 13:37 Follow up: Response: No adverse reaction aj1 13:01 Not Given (Physician Discretion): NS 0.9% 1000 ml IV at 1000 ml once aj1 Disposition: 15:35 Co-signature as Attending Physician, Prince Warner MD I agree with the assessment and kdr plan of care. Disposition: 02/06/18 12:36 Discharged to Home. Impression: Urinary tract infection, site not specified. - Condition is Stable. - Prescriptions for Zithromax Z- Jordan 250 mg Oral Tablet - take 1 tablet by ORAL route as directed for 5 days Day 1 - take two (2) tablets one time. Day 2, 3, 4 , 5 take one (1) tablet once daily.; 6 tablet. - Medication Reconciliation Form, Thank You Letter, Antibiotic Education form. - Follow up: Asiya Gamble MD; When: 2 - 3 days; Reason: Recheck today's complaints, Continuance of care, Re-evaluation by your physician. - Problem is new. - Symptoms have improved. - Notes: ensure adequate hydation Signatures: Dispatcher [employer] EDMS Verna Ramirez RN RN aj1 Prince Warner MD MD kdr Vern, Katherine, ASSISTANT FOOD SERVICE MANAGER ASSISTANT FOOD SERVICE MANAGER kav Ree Ray, CHIEF LIBRARIAN EXTENSION DEPARTMENT CHIEF LIBRARIAN EXTENSION DEPARTMENT ed1 Richard Quintana RN NAIF hj Corrections: (The following items were deleted from the chart) 11:34 11:20 fentaNYL (PF) 25 mcg IVP once ordered. kav ed1 11:52 11:27 Presley ordered. kav ed1 12:03 11:16 COMPREHENSIVE METABOLIC PANEL+C.LAB.BRZ ordered. EDWY EDMS 13:38 12:36 02/06/2018 12:36 Discharged to Home. Impression: Urinary tract infection, site aj1 not specified. Condition is Stable. Forms are Medication Reconciliation Form, Thank You Letter, Antibiotic Education, Prescription Opioid Use. Follow up: Asiya Gamble; When: 2 - 3 days; Reason: Recheck today's complaints, Continuance of care, Re-evaluation by your physician. Problem is new. Symptoms have improved. ka
--- NOTE | 2018-02-06 12:37 | ER ---
Nurse's Notes [facility] Name: Roland Feldman Jr Age: 32 yrs Sex: Male : 1985 Arrival Date: 02/06/2018 Time: 10:57 Bed 19 Private MD: Asiya Gamble Diagnosis: Urinary tract infection, site not specified Presentation: 02/06 11:00 Presenting complaint: Patient states: my catheter hasn't been changed for 3 months, its hj supposed to be changed every 4-6 weeks by home health, but they haven't done it so, now, my stomach hurts, looks like my urine is backing up on my system; reports fever 2 days ago;. Transition of care: patient was not received from another setting of care. Onset of symptoms. Risk Assessment: Do you want to hurt yourself or someone else? Patient reports no desire to harm self or others. Initial Sepsis Screen: Does the patient meet any 2 criteria? No. Patient's initial sepsis screen is negative. Does the patient have a suspected source of infection? No. Patient's initial sepsis screen is negative. Care prior to arrival: [facility];. 11:00 Method Of Arrival: Ambulatory 11:00 Acuity: YUKI 3 hj Triage Assessment: 11:03 General: Appears in no apparent distress. uncomfortable, Behavior is calm, cooperative, hj appropriate for age. Pain: Complains of pain in back and abdomen. Historical: - Allergies: 11:03 Amoxicillin; hj 11:03 Bactrim; hj 11:03 Ciprofloxacin; hj 11:03 CLAVULANIC ACID; hj 11:03 Doxycycline; hj 11:03 Levofloxacin; 11:03 Morphine; hj 11:03 sulfamethoxazole; hj 11:03 Toradol; hj 11:03 TRIMETHOPRIM; hj 11:03 Vancomycin; hj 11:03 Zofran; hj - Home Meds: 11:03 metoprolol tartrate 25 mg Oral tab 1 tab 2 times per day [Active]; pantoprazole 40 mg hj Oral TbEC 1 tab once daily [Active]; ProMod Protein Oral liqd 30 mL twice a day [Active]; Vitamin C 500 mg Oral tab twice a day [Active]; zinc sulfate 220 (50) mg Oral cap daily [Active]; - PMHx: 11:03 Asthma; Cerebral Palsy; cluster headaches; decubitus ulcers on feet; GERD; hj Hydrocephalus; Hypertension; spina bifida; - PSHx: 11:03 Unable to obtain; hj - Immunization history:: Adult Immunizations up to date. - Social history:: Smoking status: Patient/guardian denies using tobacco, Patient/guardian denies using alcohol. - Ebola Screening: : Patient negative for fever greater than or equal to 101.5 degrees Fahrenheit, and additional compatible Ebola Virus Disease symptoms Patient denies exposure to infectious person Patient denies travel to an Ebola-affected area in the 21 days before illness onset. - Family history:: not pertinent. - Hospitalizations: : No recent hospitalization is reported. Screenin:03 Abuse screen: Denies threats or abuse. Denies injuries from another. Nutritional hj screening: No deficits noted. Tuberculosis screening: No symptoms or risk factors identified. Fall Risk None identified. Assessment: 11:09 General: Appears in no apparent distress. Behavior is calm, cooperative. Pain: ed1 Complains of pain in abdomen Pain does not radiate. Pain currently is 8 out of 10 on a pain scale. Quality of pain is described as sharp, Pain began 1 day ago. Is continuous. Neuro: Level of Consciousness is awake, alert, obeys commands, Oriented to person, place, time, situation. Cardiovascular: Denies chest pain, Heart tones S1 S2 present. Respiratory: Airway is patent Respiratory effort is even, unlabored, Respiratory pattern is regular, symmetrical, Breath sounds are clear bilaterally. GI: Abdomen is obese, Bowel sounds present X 4 quads. Abd is soft and non tender X 4 quads. Reports lower abdominal pain, Patient currently denies diarrhea, nausea, vomiting. : suprapubic catheter in place Reports Pt previously seen by home health. Currently no home health services in place. 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 EENT: No signs and/or symptoms were reported regarding the EENT system. Derm: No signs and/or symptoms reported regarding the dermatologic system. 11:15 General: The previous assessment is accurate. Call light remains within reach. . ss 12:03 Reassessment: Catheter clamped per provider instructions. ed1 Vital Signs: 11:03 BP 129 / 88; Pulse 103; Resp 18; Temp 98.7(TE); Pulse Ox 98% on R/A; Weight 131.54 kg; hj Height 4 ft. 11 in. (149.86 cm); Pain 8/10; 12:16 BP 115 / 76 Sitting; Pulse 96; Resp 18; Pulse Ox 97% on R/A; mh5 11:03 Body Mass Index 58.57 (131.54 kg, 149.86 cm) ED Course: 10:57 Patient arrived in ED. mr 10:57 Asiya Gamble MD is Private Physician. mr 11:02 Triage completed. hj 11:03 Arm band placed on right wrist. hj 11:03 Patient has correct armband on for positive identification. Placed in gown. Bed in low hj position. Call light in reach. Side rails up X 1. 11:08 Ree Ray LVN is Primary Nurse. ed1 11:13 Mary Kate Chaudhary FNP is PHCP. kav 11:13 Prince Warner MD is Attending Physician. kav 12:36 Asiya Gamble MD is Referral Physician. kav 13:37 Patient did not have IV access during this emergency room visit. aj1 13:37 No provider procedures requiring assistance completed. aj1 14:01 Urine Dipstick--Ancillary (enter results) Sent. eb Administered Medications: 11:34 CANCELLED (Other Intervention Used): fentaNYL (PF) 25 mcg IVP once ed1 11:51 Drug: fentaNYL (PF) 25 mcg Route: IM; Site: right deltoid; ed1 13:37 Follow up: Response: No adverse reaction aj1 12:59 Drug: Rocephin (cefTRIAXone) 1 grams Route: IM; Site: right gluteus; aj1 13:37 Follow up: Response: No adverse reaction aj1 13:01 Not Given (Physician Discretion): NS 0.9% 1000 ml IV at 1000 ml once aj1 Outcome: 12:36 Discharge ordered by . kav 13:38 Discharged to home via wheelchair. aj1 13:38 Condition: good 13:38 Discharge instructions given to patient, Instructed on discharge instructions, follow up and referral plans. medication usage, Demonstrated understanding of instructions, follow-up care, medications. 13:38 Patient left the ED. aj1 Signatures: Verna Ramirez RN RN aj Mary Kate Chaudhary FNP [employer] [facility] Tereza Garcia mr Mackenzie Santa RN RN Ree Ray LVN LVN ed1 Richard Quintana, NAIF RN Tereza Varma [facility] Idalia Garcias Corrections: (The following items were deleted from the chart) 11:05 11:03 Pulse 103bpm; Resp 18bpm; Pulse Ox 98% RA; Temp 98.7F Temporal; 131.54 kg; Height hj 4 ft. 11 in.; BMI: 58.5; Pain 8/10; hj
[2018-02-06] MEDS ORDERED: LIDOCAINE 1% MPF 2 ML AMPULE ONE (12:55)
[2018-02-06] MEDS ORDERED: CEFTRIAXONE 1000 MG/VIAL ONE (12:55)
[2018-02-06 13:44] VITALS: TEMP 98.7
[2018-02-06 13:46] VITALS: BP 115/76; O2SAT 97
[2018-02-06 14:07] LABS: Urine Blood 3+ (NEG); Urine Glucose NEGATIVE (NEG); Urine Protein 2+ (NEG)
[2018-02-06 14:10] LABS: Urine Bacteria >50 /HPF (NONE SEEN); Urine Culture Reflex Order NOT NEEDED
== END 2018-02-06 13:38 | disposition home or self-care (01) ==
LOC: ER 10:54
PROC: 0T9B70Z Drainage of Bladder with Drainage Device, Via Natural or Artificial Opening (ICD-10-PCS; principal; 2018-02-06)
DX: N39.0 Urinary tract infection, site not specified (principal); T83.098A Other mechanical complication of other urinary catheter, initial encounter; I10 Essential (primary) hypertension; Y84.6 Urinary catheterization as the cause of abnormal reaction of the patient, or of later complication, without mention of misadventure at the time of the procedure; Y92.9 Unspecified place or not applicable; Z88.6 Allergy status to analgesic agent; Z88.1 Allergy status to other antibiotic agents; Z88.2 Allergy status to sulfonamides
CPT/HCPCS: 36415; 81003; 81015; 85025; 87077; 87086; 87088; 87186; 96372; 99283; J2001; J3010

== ENCOUNTER 2018-03-05 16:53 | Inpatient (IN) | payer OTHER ==
--- OUTSIDE RECORDS SUMMARY | 2018-03-05 17:00 | XMS REPORT | Clinical Summary ---
:1985 Author Organization [facility] Address [address] [place] [address] Phone Care Team Providers Name Role Phone [...] Not on file Results Not on fileafter 03/04/2017
--- OUTSIDE RECORDS SUMMARY | 2018-03-05 17:01 | XMS REPORT | Continuity of Care Document ---
:1985 Author Organization Interface Problems Problem Status Onset Classification Date Comments Source Date Reported SHUNT MALFUNCTION Active 11/15/[address] ACUTE HEADACHE Active 11/15/[address] Acute pain Active Problem 11/22/2017 [facility] Asthma Resolved Problem 11/22/2017 [facility] Bronchitis Resolved Problem 11/22/2017 [facility] Cerebral palsy Resolved Problem 11/22/2017 [facility] Headache Active Problem 11/22/2017 [facility] Hydrocephalus Resolved Problem 11/22/2017 [facility] Osteomyelitis Resolved Problem 11/22/2017 [facility] HEADACHE Active [facility] Medications Medication Details Route Status Patient Ordering Order Source Instructions Provider Date Docusate Sodium 100 mg=1 cap, Active 11/19[facility] [place] 100 MG Oral PO, BID, 0 2018 Medical Capsule Refill(s) [place] Zosyn 0 Refill(s) Active [facility] 2018 Medical [place] celecoxib 200 200 mg=1 cap, Active 11/19[facility] [place] mg oral capsule PO, BID, 0 2018 Medical Refill(s) [place] ascorbic acid 500 mg=1 tab, Active 11/19[facility] [place] PO, BID, 0 2018 Medical Refill(s) Center acetaminophen 1,000 mg=2 tab, Active 11/19[facility] [place] 500 mg oral PO, Q6Hnow, 0 2018 Medical tablet Refill(s) [place] Oxycodone 5 mg=1 tab, PO, Active 11/19[facility] [place] Hydrochloride 5 Q4H, PRN Pain 2018 Medical MG Oral Tablet Score 4-6, 0 Center Refill(s) zinc sulfate 220 mg=1 cap, Active 11/19[facility] [place] 220 mg oral PO, Daily, 0 2018 Medical capsule Refill(s) [place] multivitamin 1 tab, PO, Active 11/19[facility] [place] Daily, 0 2018 Medical Refill(s) Center methocarbamol 1,000 mg=2 tab, Active 11/19[facility] [place] 500 mg oral PO, Q8H, 0 2018 Medical tablet Refill(s) Center LORazepam 0.5 0.5 mg=1 tab, Active [place] mg oral tablet PO, Q8H, PRN 2018 Medical Anxiety, 0 Center Refill(s) Lidocaine 3 patch, TOP, Active [facility] Hydrochloride Daily, Remove 2018 Medical 0.05 MG/MG after 12 hours, Center Transdermal 0 Refill(s) Patch [Lidoderm] Robaxin 1,000 mg, 2 No Longer [facility] tab, Route: PO, Active 2018 Medical Drug form: TAB, Center Q8H, Dosing Weight 127.027, kg, Start date: 11/17/17 16:00:00 CDT, Duration: 30 day, Stop date: 12/17/17 8:00:00 CDTNotes: (Same as:Robaxin) Oxycodone 10 mg, 2 tab, No Longer [facility] Hydrochloride 5 Route: PO, Drug Active 2018 Medical MG Oral Tablet form: TAB, Center Daily, Dosing Weight 127.027, kg, PRN Procedure, Start date: 11/17/17 13:06:00 CDT, Duration: 30 day, Stop date: 12/17/17 13:05:00 CDTNotes: (Same as: Roxicodone) Ativan 0.5 mg, 1 tab, No Longer [facility] Route: PO, Drug Active 2017 Medical form: TAB, Q8H, Center Dosing Weight 127.027, kg, PRN Anxiety, Start date: 11/17/17 10:18:00 CDT, Duration: 7 day, Stop date: 11/24/17 10:17:00 CDTNotes: (Same as: Ativan) Trazodone 50 mg, 1 tab, No Longer [facility] Hydrochloride Route: PO, Drug Active 2018 Medical 50 MG Oral form: TAB, Center Tablet Bedtime, Dosing Weight 127.027, kg, Start date: 11/16/17 21:00:00 CDT, Duration: 30 day, Stop date: 12/15/17 21:00:00 CDTNotes: (Same As: Desyrel) remove patch 3 patch, Route: No Longer [facility] TOP, Bedtime, Active 2017 Medical Drug form: Center ERFILM, Start date: 11/16/17 21:00:00 CDT, Duration: 30 day, Stop date: 12/15/17 21:00:00 CDTNotes: Remove patch 12 hours after application each day. Oxycodone 10 mg, 2 tab, Inactive [facility] Hydrochloride 5 Route: PO, Drug 2018 Medical MG Oral Tablet form: TAB, Center ONCE, Dosing Weight 127.027, kg, Start date: 11/16/17 17:01:00 CDT, Stop date: 11/16/17 17:01:00 CDTNotes: (Same as: Roxicodone) Celebrex 200 mg, 1 cap, No Longer [facility] Route: PO, Drug Active 2018 Medical form: CAP, BID, [place] Dosing Weight 127.027, kg, Start date: 11/16/17 17:00:00 CDT, Duration: 30 day, Stop date: 12/16/17 9:00:00 CDTNotes: NSAID. Please check indication. Not for seizure. (Same As: CeleBREX) Vancomycin 1,500 mg, 250 No Longer [facility] mL, Route: Active 2018 Medical IVPB, Drug Center form: INJ, [id number], Dosing Weight 127.27, kg, Start date: 11/16/17 16:00:00 CDT, Stop date: 11/21/17 8:00:00 CDT, ABX Indication: Skin/Soft Tissue InfectionNotes: TIME CRITICAL MEDICATION Same as: Vancocin-NS (premixed) Infusion rate 2001 mg: infuse over 2.5 hours Lidocaine 3 patch, Route: No Longer [place] Hydrochloride TOP, Daily, Active 2018 Medical 0.05 MG/MG Drug form: [place] Transdermal FILM, Start Patch date: 11/16/17 [Lidoderm] 9:00:00 CDT, Duration: 7 day, Stop date: 11/22/17 9:00:00 CDT, Remove after 12 hoursNotes: Apply only once for up to 12 hours in a 24-hour period (12 hours on and 12 hours off). (Same as: Lidoderm) "Remove old patch before application of new patch" Phenergan 12.5 mg, 0.5 Inactive [place] mL, Route: 2018 Medical IVPB, Drug Center form: INJ, ONCE, Dosing Weight 127.027, kg, Priority: NOW, Start date: 11/15/17 17:40:00 CDT, Stop date: 11/15/17 17:40:00 CDTNotes: Do not give IV push. (Same as: Phenergan) Dilaudid 0.5 mg, 0.25 Inactive [place] mL, Route: IVP, 2017 Medical Drug form: INJ, Center ONCE, Dosing Weight 127.027, kg, Priority: NOW, Start date: 11/15/17 17:40:00 CDT, Stop date: 11/15/17 17:40:00 CDTNotes: Same as Dilaudid Tramadol 100 mg, 2 tab, No Longer [facility] Route: PO, Drug Active 2017 Medical form: TAB, Center Q6Hnow, Dosing Weight 127.027, kg, Start date: 11/15/17 17:00:00 CDT, Duration: 30 day, Stop date: 12/15/17 11:00:00 CDTNotes: Not to exceed 400mg/day. (Same As: Ultram) gabapentin 600 mg, 2 cap, No Longer [facility] Route: PO, Drug Active 2017 Medical form: CAP, Center Q8Hnow, Dosing Weight 127.027, kg, Start date: 11/15/17 17:00:00 CDT, Stop date: 12/15/17 9:00:00 CDTNotes: (Same as: Neurontin) Acetaminophen 1,000 mg, 2 No Longer [facility] tab, Route: PO, Active 2017 Medical Drug form: TAB, Center Q6Hnow, Dosing Weight 127.027, kg, Start date: 11/15/17 17:00:00 CDT, Duration: 30 day, Stop date: 12/15/17 11:00:00 CDTNotes: Max acetaminophen 4000 mg/day (4 gm/day). (Same as: Tylenol Extra Strength) Robaxin 500 mg, 1 tab, No Longer [facility] Route: PO, Drug Active 2017 Medical form: TAB, TID, Center Dosing Weight 127.027, kg, Start date: 11/15/17 17:00:00 CDT, Duration: 30 day, Stop date: 12/15/17 13:00:00 CDTNotes: (Same as:Robaxin) Oxycodone 5 mg, 1 tab, No Longer [facility] Hydrochloride 5 Route: PO, Drug Active 2018 Medical MG Oral Tablet form: TAB, Q4H, Center Dosing Weight 127.027, kg, PRN Pain Score 4-6, Start date: 11/15/17 16:33:00 CDT, Duration: 30 day, Stop date: 12/15/17 16:32:00 CDTNotes: (Same as: Roxicodone) Beneprotein 7 2 pkt, Route: No Longer [facility] gm pkt PO, Drug Form: Active 2018 Medical PWDR, Dosing Center Weight 127.027, kg, BID-Before Meals, Start date: 11/15/17 16:30:00 CDT, Duration: 30 day, Stop date: 12/15/17 7:30:00 CDTNotes: (Same as: Beneprotein) Acetaminophen 1 tab, PO, TID, No Longer [facility] 325 MG / 0 Refill(s) Active 2018 [facility] Oxycodone Center Hydrochloride 10 MG Oral Tablet [Percocet 10/325] Dilaudid 0.5 mg, 0.25 Inactive [facility] mL, Route: IVP, 2017 Medical Drug form: INJ, Center ONCE, Start date: 11/15/17 11:01:00 CDT, Stop date: 11/15/17 11:01:00 CDT Phenergan 25 mg, 1 tab, Inactive [facility] Route: PO, Drug 2018 Medical form: TAB, Q6H, Center Dosing Weight 127.027, kg, PRN Nausea & Vomiting, Start date: 11/15/17 10:43:00 CDT, Duration: 30 day, Stop date: 12/15/17 10:42:00 CDTNotes: (Same as: Phenergan) Dilaudid 2 mg, Route: Inactive [facility] IVP, ONCE, 2018 Medical Dosing Weight Center 127.027, kg, Priority: STAT, Start date: 11/15/17 10:43:00 CDT, Stop date: 11/15/17 10:43:00 CDT Docusate 100 mg, 1 cap, No Longer [facility] Route: PO, Drug Active 2018 Medical form: CAP, BID, Center Dosing Weight 127.27, kg, Start date: 11/15/17 9:00:00 CDT, Duration: 30 day, Stop date: 12/14/17 17:00:00 CDTNotes: (Same as: Colace) (Do Not Crush) Zinc Sulfate 220 mg, 1 cap, No Longer [facility] Route: PO, Drug Active 2018 Medical form: CAP, Center Daily, Dosing Weight 127.27, kg, Start date: 11/15/17 9:00:00 CDT, Duration: 30 day, Stop date: 12/14/17 9:00:00 CDTNotes: (Zinc sulfate capsule) - 220 mg Zinc sulfate=50 mg elemental zinc Same as Zinc Sulfate ascorbic acid 500 mg, 1 tab, No Longer [facility] Route: PO, Drug Active 2017 Medical form: TAB, BID, Center Dosing Weight 127.27, kg, Start date: 11/15/17 9:00:00 CDT, Duration: 30 day, Stop date: 12/14/17 17:00:00 CDTNotes: (Same as: Vitamin C) multivitamin 1 tab, Route: No Longer [facility] PO, Drug Form: Active 2018 Medical TAB, Dosing Center Weight 127.27, kg, Daily, Start date: 11/15/17 9:00:00 CDT, Duration: 30 day, Stop date: 12/14/17 9:00:00 CDTNotes: (Same as:Thera) WASTE: F/P - Black; E - Municipal Trash Bin Take with food. Naproxen 500 mg, 1 tab, Inactive [place] Route: PO, Drug 2017 Medical form: TAB, Center [id number], Dosing Weight 127.27, kg, Start date: 11/15/17 2:00:00 CDT, Duration: 30 day, Stop date: 12/14/17 14:00:00 CDTNotes: (Same as: Naprosyn) Take with food. Zosyn 3.375 gm, No Longer [facility] Route: IVPB, Active 2018 Medical Drug form: Center PDR/INJ, [id number], Dosing Weight 127.27, kg, Start date: 11/15/17 2:00:00 CDT, Stop date: 11/21/17 10:00:00 CDT, ABX Indication: Skin/Soft Tissue InfectionNotes: (Same as: Zosyn) Dosing based on Piperacillin component MEDICATION WASTE Product Size: 3375 mg Product Wasted: ___ mg Vancomycin 1,000 mg, No Longer [facility] Route: IVPB, Active 2017 Medical Drug form: INJ, Center [id number], Dosing Weight 127.27, kg, Start date: 11/15/17 2:00:00 CDT, Duration: 7 day, Stop date: 11/21/17 18:00:00 CDT, ABX Indication: Skin/Soft Tissue InfectionNotes: TIME CRITICAL MEDICATION (Same As: Vancocin) Infusion rate 2001 mg: infuse over 2.5 hours For adult patients only: Round to nearest 250 mg per Medical Staff approval MEDICATION WASTE Product Size: 1000 mg Product Wasted: ___ mg Enoxaparin 40 mg, 0.4 mL, No Longer [facility] Route: SUB-Q, Active 2017 Medical Drug form: INJ, Center [id number], Dosing Weight 127.27, kg, Consider for obese patients, Start date: 11/15/17 2:00:00 CDT, Stop date: 12/14/17 14:00:00 CDTNotes: (Same as: Lovenox) Sodium Chloride 1,000 mL, Rate: No Longer [facility] 0.9% IV 1,000 125 ml/hr, Active 2017 Medical mL Infuse over: 8 Center hr, Route: IV, Dosing Weight 127.27 kg, Total Volume: 1,000, Start date: 11/15/17 1:46:00 CDT, Duration: 30 day, Stop date: 12/15/17 1:45:00 CDT, 2.44, m2 Saline Flush 10 ml, Route: No Longer [facility] 0.9% IVP, Drug Form: Active 2017 Medical INJ, Dosing Center Weight 127.27, kg, PRN, PRN Line Flush, Start date: 11/15/17 1:46:00 CDT, Duration: 30 day, Stop date: 12/15/17 1:45:00 CDTNotes: (Same as: BD Posiflush) Acetaminophen 325 mg, 1 tab, Inactive [facility] Route: PO, Drug 2018 Medical form: TAB, Q4H, Center Dosing Weight 127.27, kg, PRN Pain Score 4-6, Start date: 11/15/17 1:46:00 CDT, Duration: 30 day, Stop date: 12/15/17 1:45:00 CDTNotes: Do not exceed 4 gm/day. (Same as: Tylenol) Acetaminophen 1 tab, Route: Inactive [facility] 325 MG / PO, Drug Form: 2018 Medical Hydrocodone TAB, Dosing Center Bitartrate 5 MG Weight 127.27, Oral Tablet kg, Q4H, PRN Pain Score 4-6, Start date: 11/15/17 1:46:00 CDT, Duration: 30 day, Stop date: 12/15/17 1:45:00 CDTNotes: (Same as: [facility] 325/5) Do not exceed 4gm/day of acetaminophen. Reglan 10 mg, 2 mL, Inactive [facility] Route: IVP, 2017 Medical Drug form: INJ, Center ONCE, Dosing Weight 127.273, kg, Priority: STAT, Start date: 11/14/17 23:27:00 CDT, Stop date: 11/14/17 23:27:00 CDTNotes: (Same as: Reglan) Benadryl 25 mg, 0.5 mL, Inactive [facility] Route: IVP, 2018 Medical Drug form: INJ, Center ONCE, Dosing Weight 127.273, kg, Priority: STAT, Start date: 11/14/17 23:27:00 CDT, Stop date: 11/14/17 23:27:00 CDTNotes: (Same as: Benadryl) Magnesium 2 gm, 50 mL, Inactive [facility] Sulfate Route: IV, Drug 2017 Medical form: INJ, Center ONCE, Dosing Weight 127.273, kg, Priority: STAT, Start date: 11/14/17 23:26:00 CDT, Stop date: 11/14/17 23:26:00 CDTNotes: WASTE: F/P - Sink; E - Municipal Trash Bin Sodium Chloride 1,000 mL, 1000 Inactive [facility] 0.9% (Bolus) IV ml/hr, Infuse 2018 Medical Over: 1 hr, Center Route: IV, 1,000, Drug form: INJ, ONCE, Priority: STAT, Dosing Weight 127.273 kg, Start date: 11/14/17 23:26:00 CDT, Stop date: 11/14/17 23:26:00 CDT Zosyn 4.5 gm, Route: Inactive [facility] IVPB, ONCE, 2018 Medical Dosing Weight Center 127.273, kg, Priority: STAT, Start date: 11/14/17 23:10:00 CDT, Stop date: 11/14/17 23:10:00 CDT, ABX Indication: Bacteremia Vancomycin 2,000 mg, Inactive [facility] Route: IVPB, 2018 Medical ONCE, Dosing Center Weight 127.273, kg, Priority: STAT, Start date: 11/14/17 23:10:00 CDT, Stop date: 11/14/17 23:10:00 CDT, ABX Indication: BacteremiaNotes : TIME CRITICAL MEDICATION (Same As: Vancocin) Infusion rate 2001 mg: infuse over 2.5 hours For adult patients only: Round to nearest 250 mg per Medical Staff approval MEDICATION WASTE Product Size: 1000 mg Product Wasted: ___ mg normal saline 1,000 mL, Rate: No Longer [facility] 0.9% IV 1,000 75 ml/hr, Active 2018 Medical mL Infuse over: Center 13.3 hr, Route: IV, Dosing Weight 127.273 kg, Total Volume: 1,000, Start date: 11/14/17 22:39:00 CDT, Duration: 30 day, Stop date: 12/14/17 22:38:00 CDT, 2.36, m2 Acetaminophen 1,000 mg, 2 Inactive [facility] tab, Route: PO, 2018 Medical Drug form: TAB, Center ONCE, Dosing Weight 127.273, kg, Start date: 11/14/17 21:56:00 CDT, Stop date: 11/14/17 21:56:00 CDTNotes: Max acetaminophen 4000 mg/day (4 gm/day). (Same as: Tylenol Extra Strength) Rocephin 1 gm, Route: Inactive 05/04[facility] IVP, Drug form: 2018 Medical PDR/INJ, ONCE, Center Dosing Weight 127.273, kg, Priority: STAT, Start date: 11/14/17 21:21:00 CDT, Stop date: 11/14/17 21:21:00 CDT, ABX Indication: Urinary Tract InfectionNotes: (Same As: Rocephin). MEDICATION WASTE Product Size: 1000 mg Product Wasted: _0__ mg Morphine 4 mg, Route: Inactive 11/15[facility] IVP, ONCE, 2018 Medical Dosing Weight Center 127.273, kg, Priority: STAT, Start date: 11/14/17 19:05:00 CDT, Stop date: 11/14/17 19:05:00 CDT Benadryl 25 mg, 0.5 mL, Inactive 11/14[facility] Route: IVP, 2017 Medical Drug form: INJ, Center ONCE, Dosing Weight 127.273, kg, Priority: STAT, Start date: 11/14/17 18:14:00 CDT, Stop date: 11/14/17 18:14:00 CDTNotes: (Same as: Benadryl) Benadryl 50 mg, 2 cap, Inactive 11/14[facility] Route: PO, Drug 2017 Medical form: CAP, Center ONCE, Dosing Weight 127.273, kg, Priority: STAT, Start date: 11/14/17 17:56:00 CDT, Stop date: 11/14/17 17:56:00 CDTNotes: (Same as: Benadryl) Morphine 4 mg, 1 mL, Inactive 11/14[facility] Route: IVP, 2017 Medical Drug form: Center SOLN, ONCE, Dosing Weight 127.273, kg, Priority: STAT, Start date: 11/14/17 17:56:00 CDT, Stop date: 11/14/17 17:56:00 CDT Allergies, Adverse Reactions, Alerts Substance Category Reaction Severity Reaction Status Date Comments Source type Reported amoxicillin Assertion Drug Active [facility] morphine Assertion Drug Active [facility] Toradol Assertion Drug Active [facility] Minocin Assertion Drug Active [facility] Zofran Assertion Drug Active [facility] Levaquin Assertion Drug Active [facility] Bactrim Assertion Drug Active [facility] NKDA Assertion Drug Active [facility] Immunizations Immunization Date Given Site Status Last Updated Comments Source Results Order Name Results Value Reference Date Interpretation Comments Source Range CHEM PANEL B/C Ratio 17 6 - 25 11/[address] CHEM PANEL Globulin 4.3 g/dL 2.7 - 4.2 11/[address] CHEM PANEL A/G Ratio 0.7 0.7 - 1.6 11/[address] CHEM PANEL AGAP 14.4 meq/L 10.0 - 11/19 [facility] 20.0 [facility] CHEM PANEL eGFR 113 11/19 Result Comment: The eGFR is calculated using the CKD-EPI formula. In most young, healthy individuals the eGFR will be >90 mL/ min/1.73m2. The eGFR declines with age. An eGFR of 60-89 may be normal in [facility] mL/min/1.7 some populations, particularly the elderly, for whom the CKD-EPI formula has not been extensively validated. Use of the eGFR is not recommended in the following populations: [address] Individuals with unstable creatinine concentrations, including patients and those with serious co-morbid conditions. Patients with extremes in muscle mass or diet. The data above are obtained from the National Kidney Disease Education Program (NKDEP) which additionally recommends that when the eGFR is used in patients with extremes of body mass index for purposes of drug dosing, the eGFR should be multiplied by the estimated BMI. CHEM PANEL Alk Phos 76 unit/L 39 - 136 11/[address] CHEM PANEL ALT 35 unit/L 0 - 65 11/[address] CHEM PANEL Albumin Lvl 2.8 g/dL 3.5 - 5.0 11/[address] CHEM PANEL Total Protein 7.1 g/dL 6.4 - 8.4 11/[address] CHEM PANEL Calcium Lvl 8.7 mg/dL 8.5 - 10.5 11/[address] CHEM PANEL AST 18 unit/L 0 - 37 11/[address] CHEM PANEL Bili Total 0.3 mg/dL 0.2 - 1.3 11/[address] CHEM PANEL Potassium Lvl 4.4 meq/L 3.5 - 5.1 11/[address] [place] [address] CHEM PANEL Chloride Lvl 109 meq/L 95 - 109 05 2017 [facility] CHEM PANEL CO2 23 meq/L 24 - 32 11/[address] CHEM PANEL Glucose Lvl 114 mg/dL 70 - 99 11/[address] CHEM PANEL Creatinine 1.01 mg/dL 0.50 - 11/19 [place] Lvl 1.40 /2017 [facility] CHEM PANEL BUN 17 mg/dL 7 - 22 11/[address] CHEM PANEL Sodium Lvl 142 meq/L 135 - [address] HEMATOLOGY Basophils 0.6 % 0.0 - 1.0 11/[address] HEMATOLOGY Segs-Bands # 4.8 K/CMM 1.5 - 8.1 11/[address] HEMATOLOGY Monocytes # 0.7 K/CMM 0.0 - 0.8 11/19 [facility] [address] [place] [address] HEMATOLOGY Lymphocytes # 1.9 K/CMM 1.0 - 5.5 11/[address] HEMATOLOGY Monocytes 9.4 % 2.0 - 12.0 11/[address] HEMATOLOGY Eosinophils # 0.2 K/CMM 0.0 - 0.5 11/[address] HEMATOLOGY Eosinophils 2.9 % 0.0 - 4.0 11/[address] HEMATOLOGY Segs 62.2 % 45.0 - 11/19 [place] 75.0 [facility] HEMATOLOGY Lymphocytes 24.9 % 20.0 - 11/19 [place] 40.0 [facility] HEMATOLOGY MCH 27.5 pg 27.0 - 11/19 31.0 [facility] HEMATOLOGY MCV 85.3 fL 80.0 - 11/19 [place] 94.0 [facility] HEMATOLOGY Hct 43.9 % 42.0 - 11/19 [place] 54.0 [facility] HEMATOLOGY Hgb 14.2 g/dL 14.0 - 11/19 [place] 18.0 [facility] HEMATOLOGY WBC 7.7 K/CMM 3.7 - 10.4 11/[address] HEMATOLOGY RBC 5.15 M/CMM 4.70 - 11/19 [facility] [place] 6.10 [facility] HEMATOLOGY MPV 8.4 fL 7.4 - 10.4 11/19 [facility] HEMATOLOGY MCHC 32.3 g/dL 32.0 - 11/19 [facility] 36.0 [facility] HEMATOLOGY RDW 17.3 % 11.5 - 11/19 [facility] 14.5 [facility] HEMATOLOGY Platelet 317 K/CMM 133 - 450 11/19 2017 [facility] CHEM PANEL Globulin 4.4 g/dL 2.7 - 4.2 11/[address] CHEM PANEL A/G Ratio 0.6 0.7 - 1.6 11/[address] CHEM PANEL B/C Ratio 17 6 - 25 11/18 2017 [facility] CHEM PANEL AGAP 11.3 meq/L 10.0 - 11/18 [facility] 20.0 [facility] CHEM PANEL eGFR 134 11/18 Result Comment: The eGFR is calculated using the CKD-EPI formula. In most young, healthy individuals the eGFR will be >90 mL/ min/1.73m2. The eGFR declines with age. An eGFR of 60-89 may be normal in [facility] mL/min/1. some populations, particularly the elderly, for whom the CKD-EPI formula has not been extensively validated. Use of the eGFR is not recommended in the following populations: [address] Individuals with unstable creatinine concentrations, including patients and those with serious co-morbid conditions. Patients with extremes in muscle mass or diet. The data above are obtained from the National Kidney Disease Education Program (NKDEP) which additionally recommends that when the eGFR is used in patients with extremes of body mass index for purposes of drug dosing, the eGFR should be multiplied by the estimated BMI. CHEM PANEL Creatinine 0.84 mg/dL 0.50 - 11/18 [facility] Lvl 1.40 [facility] CHEM PANEL Sodium Lvl 142 meq/L 135 - 145 11/[address] CHEM PANEL Glucose Lvl 99 mg/dL 70 - 99 11/[address] CHEM PANEL BUN 14 mg/dL 7 - 22 11/[address] CHEM PANEL Alk Phos 79 unit/L 39 - 136 11/[address] CHEM PANEL Bili Total 0.3 mg/dL 0.2 - 1.3 11/[address] CHEM PANEL AST 14 unit/L 0 - [address] CHEM PANEL ALT 43 unit/L 0 - 65 11/[address] CHEM PANEL Total Protein 7.1 g/dL 6.4 - 8.4 11/[address] CHEM PANEL Albumin Lvl 2.7 g/dL 3.5 - 5.0 11/[address] CHEM PANEL Calcium Lvl 9.2 mg/dL 8.5 - 10.5 11/[address] CHEM PANEL CO2 21 meq/L 24 - 32 11/[address] CHEM PANEL Potassium Lvl 4.3 meq/L 3.5 - 5.1 11/[address] CHEM PANEL Chloride Lvl 114 meq/L 95 - 109 11/[address] HEMATOLOGY MCHC 32.5 g/dL 32.0 - 11/18 [facility] 36.0 [facility] HEMATOLOGY RDW 17.5 % 11.5 - 11/18 [facility] 14.5 [facility] HEMATOLOGY Platelet 400 K/CMM 133 - 450 11/[address] HEMATOLOGY MPV 8.5 fL 7.4 - 10.4 11/[address] HEMATOLOGY WBC 6.6 K/CMM 3.7 - 10.4 11/[address] HEMATOLOGY RBC 5.17 M/CMM 4.70 - 11/18 [facility] 6.10 [facility] HEMATOLOGY MCV 86.1 fL 80.0 - 11/18 94.0 [facility] HEMATOLOGY Hct 44.5 % 42.0 - 11/18 54.0 [facility] HEMATOLOGY MCH 28.0 pg 27.0 - 11/18 [facility] 31.0 [facility] HEMATOLOGY Hgb 14.5 g/dL 14.0 - 11/18 [facility] 18.0 [facility] HEMATOLOGY Lymphocytes # 1.7 K/CMM 1.0 - 5.5 11/[address] HEMATOLOGY Monocytes # 0.7 K/CMM 0.0 - 0.8 11/[address] HEMATOLOGY Eosinophils # 0.2 K/CMM 0.0 - 0.5 11/[address] HEMATOLOGY Lymphocytes 26.1 % 20.0 - 11/18 [place] 40.0 [facility] HEMATOLOGY Segs 59.3 % 45.0 - 11/18 [facility] 75.0 [facility] HEMATOLOGY Basophils 0.8 % 0.0 - 1.0 11/[address] HEMATOLOGY Monocytes 10.5 % 2.0 - 12.0 11/[address] HEMATOLOGY Eosinophils 3.3 % 0.0 - 4.0 11/[address] HEMATOLOGY Segs-Bands # 3.9 K/CMM 1.5 - 8.1 11/[address] CHEM PANEL Glucose Lvl 74 mg/dL 70 - 99 11/[address] CHEM PANEL BUN 12 mg/dL 7 - 22 11/[address] CHEM PANEL Creatinine 0.75 mg/dL 0.50 - 11/17 [facility] Lvl 1.40 [facility] CHEM PANEL eGFR 140 11/17 Result Comment: The eGFR is calculated using the CKD-EPI formula. In most young, healthy individuals the eGFR will be >90 mL/ min/1.73m2. The eGFR declines with age. An eGFR of 60-89 may be normal in [facility] mL/min/1.7 some populations, particularly the elderly, for whom the CKD-EPI formula has not been extensively validated. Use of the eGFR is not recommended in the following populations: [address] Individuals with unstable creatinine concentrations, including patients and those with serious co-morbid conditions. Patients with extremes in muscle mass or diet. The data above are obtained from the National Kidney Disease Education Program (NKDEP) which additionally recommends that when the eGFR is used in patients with extremes of body mass index for purposes of drug dosing, the eGFR should be multiplied by the estimated BMI. CHEM PANEL Albumin Lvl 2.9 g/dL 3.5 - 5.0 11/17 [facility] [address] [place] [address] CHEM PANEL Globulin 4.4 g/dL 2.7 - 4.2 11/[address] CHEM PANEL A/G Ratio 0.7 0.7 - 1.6 11/[address] CHEM PANEL Bili Total 0.4 mg/dL 0.2 - 1.3 11/[address] CHEM PANEL Alk Phos 71 unit/L 39 - 136 05/ [address] [place] [address] CHEM PANEL AST 15 unit/L 0 - [address] CHEM PANEL ALT 28 unit/L 0 - 65 11/[address] CHEM PANEL Potassium Lvl 4.4 meq/L 3.5 - 5.1 11/[address] CHEM PANEL Sodium Lvl 147 meq/L 135 - [address] CHEM PANEL CO2 25 meq/L 24 - [address] CHEM PANEL Chloride Lvl 114 meq/L 95 - 109 11/[address] CHEM PANEL B/C Ratio 16 6 - 25 11/[address] CHEM PANEL Calcium Lvl 8.7 mg/dL 8.5 - 10.5 11/[address] CHEM PANEL AGAP 12.4 meq/L 10.0 - 11/17 20.0 [facility] CHEM PANEL Total Protein 7.3 g/dL 6.4 - 8.4 11/17 [facility] [address] [place] [address] HEMATOLOGY Platelet 345 K/CMM 133 - 450 05 [facility] [address] [place] [address] HEMATOLOGY MPV 8.7 fL 7.4 - 10.4 11/[address] HEMATOLOGY WBC 6.9 K/CMM 3.7 - 10.4 11/[address] HEMATOLOGY RBC 5.30 M/CMM 4.70 - 11/17 6.10 [facility] HEMATOLOGY MCHC 32.8 g/dL 32.0 - 11/17 36.0 [facility] HEMATOLOGY MCH 27.9 pg 27.0 - 11/17 31.0 [facility] HEMATOLOGY Hgb 14.8 g/dL 14.0 - 05 18.0 [facility] HEMATOLOGY MCV 85.0 fL 80.0 - 11/17 94.0 [facility] HEMATOLOGY Hct 45.1 % 42.0 - 11/17 [facility] 54.0 [facility] HEMATOLOGY RDW 17.5 % 11.5 - 05 14.5 [facility] HEMATOLOGY Eosinophils # 0.2 K/CMM 0.0 - 0.5 11/[address] HEMATOLOGY Lymphocytes # 2.0 K/CMM 1.0 - 5.5 05/ [address] HEMATOLOGY Monocytes # 0.7 K/CMM 0.0 - 0.[address] HEMATOLOGY Eosinophils 2.4 % 0.0 - 4.[address] HEMATOLOGY Basophils 0.6 % 0.0 - 1.0 11/[address] HEMATOLOGY Segs-Bands # 4.0 K/CMM 1.5 - 8.1 11/[address] HEMATOLOGY Monocytes 10.4 % 2.0 - 12.0 11/[address] HEMATOLOGY RBC Morph Normal 11/[address] (11/17/17 2:07 AM) [place] HEMATOLOGY Segs 58.1 % 45.0 - 05 [facility] 75.0 [facility] HEMATOLOGY Plt Morph Normal 11/[address] (11/17/17 2:07 AM) [place] HEMATOLOGY Lymphocytes 28.5 % 20.0 - 11/17 [facility] 40.0 [facility] HEMATOLOGY Basophils # 0.1 K/CMM 0.0 - 0.[address] HEMATOLOGY Polychrom Moderate None Seen 11/16 [facility] [address] [place], [place] [address]ABN* Center (11/16/17 11:07 AM) CHEM PANEL Magnesium Lvl 2.3 mg/dL 1.8 - 2.4 11/[address] CHEM PANEL Phosphorus 3.5 mg/dL 2.5 - 4.5 11/[address] HEMATOLOGY PT 14.0 s 12.0 - 11/15 [facility] 14.7 [facility] HEMATOLOGY PTT 37.6 s 22.9 - 11/15 [facility] 35.8 [facility] HEMATOLOGY INR 1.08 0.85 - 11/15 [facility] 1.17 [facility] IMMUNOLOGY C-REACTIVE 13.1 mg/L <=2.9 mg/L 11/15 [facility] PROTEIN [address] [place] [address] IMMUNOLOGY Prealbumin 25.2 mg/dL 18.0 - 05/04 [place] 45.0 [facility] CHEM PANEL Lactic Acid 0.9 mMol/L 0.5 - 2.2 11/15 [facility] Lvl [facility] HEMATOLOGY Sed Rate 5 mm/h 0 - 15 11/15 [facility] IMMUNOLOGY C-REACTIVE 15.8 mg/L <=2.9 mg/L 11/15 [facility] PROTEIN [facility] HEMATOLOGY PT 13.0 s 12.0 - 11/15 [place] 14.7 [facility] HEMATOLOGY INR 0.98 0.85 - 11/15 [place] 1.17 [facility] HEMATOLOGY PTT 33.2 s 22.9 - 11/15 [place] 35.8 [facility] BLOOD BANK Antibody Scrn Negative 11/14 [facility] RESULTS [facility] (11/14/17 6:51 PM) [place] BLOOD BANK ABO/Rh AB POS 11/14 [facility] RESULTS [facility] URINE AND UA 0.2 EU/dL 0.1 - 1.0 11/14 [facility] Urobilinogen /2017 [facility] URINE AND UA Nitrite Negative Negative 11/14 [facility] (11/14/17 6:35 PM) [place] URINE AND UA Glucose Negative Negative 11/14 [facility]2017 [facility] (11/14/17 6:35 PM) [place] URINE AND UA Ketones Negative Negative 11/14 [facility] Medical *NA* [place] (11/14/17 6:35 PM) URINE AND UA Bili Negative Negative 11/14 [facility] *NA* [place] (11/14/17 6:35 PM) URINE AND UA Blood Trace Negative 11/14 [facility] *ABN* [place] (11/14/17 6:35 PM) URINE AND UA Leuk Est Small Negative 11/14 [facility] *ABN* [place] (11/14/17 6:35 PM) URINE AND UA Spec Grav 1.020 <=1.030 11/14 [facility] STOOL [address] URINE AND UA pH 6.0 5.0 - 8.0 11/14 [facility] STOOL [address] URINE AND UA Color Yellow Yellow 11/14 [facility] *NA* [place] (11/14/17 6:35 PM) URINE AND UA Protein Trace Negative 11/14 [facility] Medical *ABN* [place] (11/14/17 6:35 PM) URINE AND UA Turbidity Slight Cloudy Clear 11/14 [facility]2017 [facility] (11/14/17 6:35 PM) [place] URINE AND UA Hyal Cast 0-2 0 - 2 11/14 [facility] [address] [place] [address] (11/14/17 6:35 PM) [place] URINE AND UA Bacteria Occasional None Seen 11/14 [facility] STOOL /HPF /HPF /2017 [facility] URINE AND UA RBC 11-20 /HPF 0 - 2 11/[address] URINE AND UA Sq Epi Occasional Few /LPF 11/14 [facility] STOOL /LPF /[address] [place] [address] URINE AND UA WBC 51-100 None Seen 11/14 [facility] STOOL /HPF /HPF /2017 [facility] HEMATOLOGY Basophils # 0.1 K/CMM 0.0 - 0.2 11/[address] HEMATOLOGY Polychrom Slight 11/[address] HEMATOLOGY Plt Morph Normal 11/[address] (11/14/17 6:20 PM) [place] Brain shunt Brain shunt EXAM: SKULL 2 VIEWS 11/14 - [facility] series DX series DX - [facility] EXAM: CHEST 2 VIEWS This report was dictated by a Computer Art Instructor /Fellow. I have personally reviewed the images as Center well as the Resident's interpretation and agree with the findings. EXAM: ABDOMEN 2 VIEWS Read by: Josemanuel Hoyt MD Resident: Josemanuel Hoyt MD Dictated Date/time: 11/14/17 20:33 Electronically Signed by: Jovan Talley MD 11/14/17 22:11 FINAL REPORT DATE: 11/14/2017 7:20 PM CDT INDICATION: Headache. - Please include Codman view for shunt setting. COMPARISON: Brain shuntogram 02/22/2013 TECHNIQUE: AP and lateral views of the skull, chest and abdomen. FINDINGS: There is a single intact shunt tube with the proximal aspect in the right frontal calvarium coursing across midline to the left anterior chest and abdomen with the tip coiled within the pelvis. A right parietal shunt with distal tip in the right lateral abdomen is discontinuous. Another shunt present with proximal tip in the right neck base and distal tip in the medial mid abdomen Cholecystectomy clips are noted. The lungs are clear but underinflated. Appearance of the pelvis is unchanged with bilateral shallow acetabular roofs. No obvious posterior dislocation. 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 IMPRESSION: 1. No significant change. The right transfrontal shunt catheter is intact along its course with the distal tip in the pelvis. 2. Discontinuous right parieto-occipital catheter and 2 discontinuous catheters in the right chest and abdomen are unchanged. 3. Spinal dysraphism. Brain wo Brain wo EXAM: CT BRAIN WITHOUT CONTRAST 11/14 [facility] contrast CT contrast CT /2017 - Medical This report was dictated by a Computer Art Instructor/Fellow. I have personally reviewed the images as Center well as the Resident's interpretation and agree with the findings. DATE: 11/14/2017 627 PM CDT Read by: Josemanuel Hoyt MD Resident: Josemanuel Hoyt MD Dictated Date/time: 11/14/17 18:45 Electronically Signed by: Jovan Talley MD 11/14/17 21:12 FINAL REPORT INDICATION: 32-year-old male patient with history of vp outcomes shunt malfunction COMPARISON: CT of the brain 07/30/2014, 03/27/2013. TECHNIQUE: Axial CT images of the brain were obtained. Sagittal and coronal reformats. IV contrast: None. FINDINGS: An orphaned right occipital approach MACHINE SIGN WRITER shunt is present. Also present is a right frontal approach MACHINE SIGN WRITER shunt with tip in the left lateral ventricle. Narrowing of the lateral ventricles is present, unchanged from 07/30/2014. 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 No recent hemorrhage or territorial infarct. No mass. No midline shift. No scalp fluid collections. Sinuses are clear. IMPRESSION: No acute intracranial abnormality. Adequately decompressed ventricular system. Chest 1view Chest 1view EXAM: XR CHEST 1 VIEW 11/14 [facility] DX DX /2017 - Medical This report was dictated by a Computer Art Instructor/Fellow. I have personally reviewed the images as Center well as the Resident's interpretation and agree with the findings. DATE: 11/14/2017 6:12 PM CDT Read by: Alban Thurman MD Resident: Alban Thurman MD Dictated Date/time: 11/14/17 18:31 Electronically Signed by: Jamil Trevino MD 11/14/17 19:29 FINAL REPORT INDICATION: - picc line use [place] SECTION: ER COMPARISON: None. TECHNIQUE: AP chest FINDINGS: Lines, tubes and hardware: Left PICC tip at mid SVC. Lungs and pleura: No pulmonary or pleural based abnormality is identified. Pulmonary vascularity is normal. Heart and mediastinum: The heart size is normal for technique. The mediastinal contours are normal. Bones: No acute bony abnormality is identified. Upper abdomen: Normal. IMPRESSION: Left PICC tip at mid SVC. No acute cardiopulmonary abnormality is observed. Vital Signs Vital Sign Value Date Comments Source Temperature Oral (F) 97.2 F 11/19/2017 [facility] Systolic (mm Hg) 127 11/19/2017 [facility] Diastolic (mm Hg) 85 11/19/2017 [facility] Heart Rate 81 11/19/2017 [facility] Respitory Rate 18 11/19/2017 [facility] Heart Rate 90 11/19/2017 [facility] Systolic (mm Hg) 106 11/19/2017 [facility] Diastolic (mm Hg) 71 11/19/2017 [facility] Respitory Rate 18 11/19/2017 [facility] Temperature Oral (F) 98.1 F 11/19/2017 [facility] Respitory Rate 18 11/19/2017 [facility] Systolic (mm Hg) 168 11/19/2017 [facility] Diastolic (mm Hg) 107 11/19/2017 [facility] Heart Rate 87 11/19/2017 [facility] Temperature Oral (F) 98.1 F 11/19/2017 [facility] Weight 127.027 11/18/2017 [facility] Weight 127.027 11/17/2017 [facility] Weight 127.027 11/15/2017 [facility] BMI Calculated 48.16 11/15/2017 [facility] Height 162.56 cm 11/15/2017 [facility] Height 149.86 cm 11/14/2017 [facility] BMI Calculated 56.67 11/14/2017 [facility] Encounters Location Location Encounter Encounter Reason Attending ADM DC Status Source Details Type Number For Provider Date Date Visit [facility] [id number] [place] 11/14 11/19 [facility] Jason Vasquezh [facility] Procedures Procedure Code Date Perfomer Comments Source Cholecystectomy [id number] [facility] Shunt of cerebral [id number] [facility] ventricle to [facility] extracranial site Center
--- OUTSIDE RECORDS SUMMARY | 2018-03-05 17:02 | XMS REPORT ---
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 70168010223 300-60 MG Active 1 tablet as Codeine #4 Orally every 6 needed hrs Macrobid [facility] 72960015320 100 MG Orally Active 1 capsule every 12 hrs with food Pantoprazole ND 35999425790 40 MG Orally Active 1 tablet Sodium Once a day Collagenase [facility] [address]-82 250 UNIT/GM Active 1 application Externally to affected Once a day area Results No Known Results Summary Purpose eClinicalWorks Submission
--- OUTSIDE RECORDS SUMMARY | 2018-03-05 17:02 | XMS REPORT ---
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
--- OUTSIDE RECORDS SUMMARY | 2018-03-05 17:02 | XMS REPORT ---
:1985 [facility] Address [address] [place] [address] [address] [place] [address] Care Team Providers Name Role Phone JAQUELIN GENAO Unavailable Unavailable Problems This patient has no known problems. Allergies, Adverse Reactions, Alerts This patient has no known allergies or adverse reactions. Medications This patient has no known medications. Results Test Description Test Time Test Comments Text Results Atomic Results Result Comments BLOOD CULTURE 2016-12-28 16:22:00 Test Item Value Reference Range Comments CULTURE (BEAKER) (test sdkc=5727) No growth in 5 days BLOOD [id number] 16:22:00 Test Item Value Reference Range Comments CULTURE (BEAKER) (test rzri=6477) No growth in 5 days (MANUAL DIFFERENTIAL)2016-12-25 22:29:00 Test Item Value Reference Range Comments TOTAL COUNTED (BEAKER) (test ggad=9850) WBC MORPHOLOGY (BEAKER) (test zrkn=845) Normal PLT MORPHOLOGY (BEAKER) (test euth=400) Normal RBC MORPHOLOGY (BEAKER) (test opkn=570) Normal CBC W/PLT COUNT & AUTO [id number] 22:28:00 Test Item Value Reference Range Comments WHITE BLOOD CELL COUNT (BEAKER) (test esog=382) 7.3 K/ L 4.0-10.0 RED BLOOD CELL COUNT (BEAKER) (test houm=827) 5.09 M/ L 4.20-5.80 HEMOGLOBIN (BEAKER) (test szlj=494) 13.0 GM/DL 13.0-16.8 HEMATOCRIT (BEAKER) (test ntow=470) 42.3 % 40.0-50.0 MEAN CORPUSCULAR VOLUME (BEAKER) (test jcqf=209) 83.0 fL 82.0-98.0 MEAN CORPUSCULAR HEMOGLOBIN (BEAKER) (test 25.6 pg 27.0-33.0 rqqb=779) MEAN CORPUSCULAR HEMOGLOBIN CONC (BEAKER) (test 30.8 GM/DL 32.0-36.0 cfdx=821) RED CELL DISTRIBUTION WIDTH (BEAKER) (test 18.0 % 10.3-14.2 cppf=203) PLATELET COUNT (BEAKER) (test hbtn=534) 331 K/CU MM 150-430 MEAN PLATELET VOLUME (BEAKER) (test futk=405) 8.5 fL 6.5-10.5 NUCLEATED RED BLOOD CELLS (BEAKER) (test 0 /100 WBC 0-0 pvbe=544) NEUTROPHILS RELATIVE PERCENT (BEAKER) (test 65 % gtue=138) LYMPHOCYTES RELATIVE PERCENT (BEAKER) (test 23 % koph=390) MONOCYTES RELATIVE PERCENT (BEAKER) (test 8 % rwpf=220) EOSINOPHILS RELATIVE PERCENT (BEAKER) (test 3 % ddou=772) BASOPHILS RELATIVE PERCENT (BEAKER) (test 1 % imnz=323) NEUTROPHILS ABSOLUTE COUNT (BEAKER) (test 4.75 K/ L 1.80-8.00 qwsj=553) LYMPHOCYTES ABSOLUTE COUNT (BEAKER) (test 1.68 K/ L 1.48-4.50 updc=271) MONOCYTES ABSOLUTE COUNT (BEAKER) (test 0.55 K/ L 0.00-1.30 mqwz=267) EOSINOPHILS ABSOLUTE COUNT (BEAKER) (test 0.24 K/ L 0.00-0.50 tzbb=058) BASOPHILS ABSOLUTE COUNT (BEAKER) (test 0.05 K/ L 0.00-0.20 mqvx=527) 0.000.520.000.000.000.00BASI METABOLIC [id number] 11:11:00 Test Item Value Reference Range Comments SODIUM (BEAKER) (test 138 meq/L 136-145 xsnl=142) POTASSIUM (BEAKER) (test 4.0 meq/L 3.5-5.1 uysk=831) CHLORIDE (BEAKER) (test 108 meq/L 98-107 krwd=583) CO2 (BEAKER) (test 23 meq/L 22-29 hszt=184) BLOOD UREA NITROGEN 11 mg/dL 7-21 (BEAKER) (test lldn=522) CREATININE (BEAKER) (test 0.74 mg/dL 0.57-1.25 bsud=257) GLUCOSE RANDOM (BEAKER) 124 mg/dL 70-105 (test xlis=055) CALCIUM (BEAKER) (test 8.9 mg/dL 8.4-10.2 kaok=760) EGFR (BEAKER) (test 150 mL/min/1.73 sq m ESTIMATED GFR IS NOT ilas=9003) ACCURATE CREATININE CLEARANCE IN PREDICTING GLOMERULAR FILTRATION RATE. ESTIMATED GFR IS NOT APPLICABLE FOR DIALYSIS PATIENTS. URINE [id number] 09:56:00 Test Item Value Reference Range Comments CULTURE (BEAKER) (test evng=8643) <10,000 col/mL skin marilee COMPREHENSIVE METABOLIC [id number] 08:49:00 Test Item Value Reference Range Comments TOTAL PROTEIN (BEAKER) 7.3 gm/dL 6.0-8.3 (test dmte=865) ALBUMIN (BEAKER) (test 3.3 g/dL 3.5-5.0 zxfw=3941) ALKALINE PHOSPHATASE 89 U/L 40-150 (BEAKER) (test buvz=985) BILIRUBIN TOTAL (BEAKER) 1.4 mg/dL 0.2-1.2 (test qbcq=993) SODIUM (BEAKER) (test 137 meq/L 136-145 bquk=795) POTASSIUM (BEAKER) (test 3.7 meq/L 3.5-5.1 gscx=473) CHLORIDE (BEAKER) (test 108 meq/L 98-107 ocbn=307) CO2 (BEAKER) (test 17 meq/L 22-29 wxrs=514) BLOOD UREA NITROGEN 12 mg/dL 7-21 (BEAKER) (test anyb=609) CREATININE (BEAKER) (test 0.78 mg/dL 0.57-1.25 uzgu=956) GLUCOSE RANDOM (BEAKER) 119 mg/dL 70-105 (test dmof=732) CALCIUM (BEAKER) (test 8.6 mg/dL 8.4-10.2 jqff=160) AST (SGOT) (BEAKER) (test 13 U/L 5-34 ikxk=221) ALT (SGPT) (BEAKER) (test 28 U/L 6-55 yilw=149) EGFR (BEAKER) (test 141 mL/min/1.73 sq ESTIMATED GFR IS NOT rubo=9458) m ACCURATE CREATININE CLEARANCE IN PREDICTING GLOMERULAR FILTRATION RATE. ESTIMATED GFR IS NOT APPLICABLE FOR DIALYSIS PATIENTS. CBC W/PLT COUNT & AUTO [id number] 08:46:00 Test Item Value Reference Range Comments WHITE BLOOD CELL COUNT (BEAKER) (test ebat=807) 9.4 K/ L 4.0-10.0 RED BLOOD CELL COUNT (BEAKER) (test tehs=601) 4.79 M/ L 4.20-5.80 HEMOGLOBIN (BEAKER) (test ihxr=320) 12.8 GM/DL 13.0-16.8 HEMATOCRIT (BEAKER) (test cmuj=272) 40.0 % 40.0-50.0 MEAN CORPUSCULAR VOLUME (BEAKER) (test izng=748) 83.4 fL 82.0-98.0 MEAN CORPUSCULAR HEMOGLOBIN (BEAKER) (test 26.7 pg 27.0-33.0 ahwx=523) MEAN CORPUSCULAR HEMOGLOBIN CONC (BEAKER) (test 32.0 GM/DL 32.0-36.0 thzv=687) RED CELL DISTRIBUTION WIDTH (BEAKER) (test 18.2 % 10.3-14.2 wbpm=190) PLATELET COUNT (BEAKER) (test aazv=363) 313 K/CU MM 150-430 MEAN PLATELET VOLUME (BEAKER) (test doee=175) 8.6 fL 6.5-10.5 NUCLEATED RED BLOOD CELLS (BEAKER) (test 0 /100 WBC 0-0 pocn=824) NEUTROPHILS RELATIVE PERCENT (BEAKER) (test 70 % rggr=869) LYMPHOCYTES RELATIVE PERCENT (BEAKER) (test 16 % scjc=162) MONOCYTES RELATIVE PERCENT (BEAKER) (test 12 % rfpx=791) EOSINOPHILS RELATIVE PERCENT (BEAKER) (test 1 % jlxc=856) BASOPHILS RELATIVE PERCENT (BEAKER) (test 1 % kgmz=400) NEUTROPHILS ABSOLUTE COUNT (BEAKER) (test 6.54 K/ L 1.80-8.00 jbxu=082) LYMPHOCYTES ABSOLUTE COUNT (BEAKER) (test 1.50 K/ L 1.48-4.50 dhhl=414) MONOCYTES ABSOLUTE COUNT (BEAKER) (test 1.13 K/ L 0.00-1.30 zakf=574) EOSINOPHILS ABSOLUTE COUNT (BEAKER) (test 0.13 K/ L 0.00-0.50 oajo=492) BASOPHILS ABSOLUTE COUNT (BEAKER) (test 0.06 K/ L 0.00-0.20 brnr=861) 0.00URINALYSIS W/ [id number] 20:36:00 Test Item Value Reference Range Comments COLOR (BEAKER) (test vjsv=869) Yellow CLARITY (BEAKER) (test qfhu=610) Hazy SPECIFIC GRAVITY UA (BEAKER) (test dsgw=571) 1.012 1.001-1.035 PH UA (BEAKER) (test ktrv=611) 5.5 5.0-8.0 PROTEIN UA (BEAKER) (test otjn=656) 100 mg/dL Negative GLUCOSE UA (BEAKER) (test cnzp=309) Negative Negative KETONES UA (BEAKER) (test ligh=973) Negative Negative BILIRUBIN UA (BEAKER) (test nmiu=258) Negative Negative BLOOD UA (BEAKER) (test dlzp=896) Moderate Negative NITRITE UA (BEAKER) (test jmfu=152) Negative Negative LEUKOCYTE ESTERASE UA (BEAKER) (test yycg=801) Large Negative UROBILINOGEN UA (BEAKER) (test jmgn=697) 3.0 mg/dL 0.2-1.0 RBC UA (BEAKER) (test bfhd=939) 19 /HPF WBC UA (BEAKER) (test mfuf=168) 182 /HPF SOURCE(BEAKER) (test ntrh=1915) BASIC METABOLIC [id number] 17:00:00 Test Item Value Reference Range Comments SODIUM (BEAKER) (test 140 meq/L 136-145 qyra=856) POTASSIUM (BEAKER) (test 3.7 meq/L 3.5-5.1 tfoj=076) CHLORIDE (BEAKER) (test 112 meq/L 98-107 ylwf=276) CO2 (BEAKER) (test 17 meq/L 22-29 ojpo=671) BLOOD UREA NITROGEN 23 mg/dL 7-21 (BEAKER) (test smjp=444) CREATININE (BEAKER) (test 1.00 mg/dL 0.57-1.25 jjgj=668) GLUCOSE RANDOM (BEAKER) 102 mg/dL 70-105 (test xtve=409) CALCIUM (BEAKER) (test 8.7 mg/dL 8.4-10.2 wgin=027) EGFR (BEAKER) (test 106 mL/min/1.73 sq m ESTIMATED GFR IS NOT bagh=5310) ACCURATE CREATININE CLEARANCE IN PREDICTING GLOMERULAR FILTRATION RATE. ESTIMATED GFR IS NOT APPLICABLE FOR DIALYSIS PATIENTS. Specimen slightly ictericCBC W/PLT COUNT & AUTO [id number] 12:18 :00 Test Item Value Reference Range Comments WHITE BLOOD CELL COUNT (BEAKER) (test zqwo=022) 16.4 K/ L 4.0-10.0 RED BLOOD CELL COUNT (BEAKER) (test gxjy=013) 5.22 M/ L 4.20-5.80 HEMOGLOBIN (BEAKER) (test hozd=091) 14.4 GM/DL 13.0-16.8 HEMATOCRIT (BEAKER) (test ffog=201) 42.9 % 40.0-50.0 MEAN CORPUSCULAR VOLUME (BEAKER) (test xgqv=364) 82.2 fL 82.0-98.0 MEAN CORPUSCULAR HEMOGLOBIN (BEAKER) (test 27.5 pg 27.0-33.0 ngjz=635) MEAN CORPUSCULAR HEMOGLOBIN CONC (BEAKER) (test 33.5 GM/DL 32.0-36.0 nvjq=596) RED CELL DISTRIBUTION WIDTH (BEAKER) (test 16.2 % 10.3-14.2 pyqp=944) PLATELET COUNT (BEAKER) (test tkbf=095) 329 K/CU MM 150-430 MEAN PLATELET VOLUME (BEAKER) (test lrna=683) 8.2 fL 6.5-10.5 NUCLEATED RED BLOOD CELLS (BEAKER) (test 0 /100 WBC 0-0 uvju=302) NEUTROPHILS RELATIVE PERCENT (BEAKER) (test 83 % babi=284) LYMPHOCYTES RELATIVE PERCENT (BEAKER) (test 7 % dvfq=116) MONOCYTES RELATIVE PERCENT (BEAKER) (test 9 % jnli=655) EOSINOPHILS RELATIVE PERCENT (BEAKER) (test 0 % nouc=008) BASOPHILS RELATIVE PERCENT (BEAKER) (test 0 % nsop=166) NEUTROPHILS ABSOLUTE COUNT (BEAKER) (test 1.62 K/ L 1.80-8.00 ymki=817) LYMPHOCYTES ABSOLUTE COUNT (BEAKER) (test 1.15 K/ L 1.48-4.50 twvw=752) MONOCYTES ABSOLUTE COUNT (BEAKER) (test 1.56 K/ L 0.00-1.30 bdvq=239) EOSINOPHILS ABSOLUTE COUNT (BEAKER) (test 0.01 K/ L 0.00-0.50 qths=622) BASOPHILS ABSOLUTE COUNT (BEAKER) (test 0.02 K/ L 0.00-0.20 fajs=621) (MANUAL DIFFERENTIAL)2016-12-23 12:18:00 Test Item Value Reference Range Comments TOTAL COUNTED (BEAKER) (test qxna=9211) WBC MORPHOLOGY (BEAKER) (test wfzg=726) Normal PLT MORPHOLOGY (BEAKER) (test ppwp=250) Normal RBC MORPHOLOGY (BEAKER) (test wcjj=963) Normal
--- OUTSIDE RECORDS SUMMARY | 2018-03-05 17:02 | XMS REPORT ---
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 HANDLER (ventriculoperitoneal) shunt Z98.2 Active status Problem Depression [...] spina bifida with Q05.2 Active hydrocephalus Problem AIRPORT REFUELING HANDLER (ventriculoperitoneal) shunt Z98.2 Active status Problem Nicotine dependence F17.200 Active Medications Medication Code Code Instructions Start End Status Dosage System Date Date Collagenase [facility] [id number] 250 UNIT/GM Active 1 application Externally to affected Once a day area Macrobid [facility] [id number] 100 MG Orally Active 1 capsule every 12 hrs with food Tylenol with [facility] [id number] 300-60 MG Active 1 tablet as Codeine #4 Orally every 6 needed hrs Citalopram [facility] [id number] 10 MG Orally January Active 1 tablet Hydrobromide Once a day 2017 Pantoprazole [facility] [id number] 40 MG Orally Active 1 tablet Sodium Once a day Seroquel [facility] [id number] 25 MG Orally January Active 1 tablet Once a day at 16, bedtime 2017 Results No Known Results Summary Purpose eClinicalWorks Submission
--- OUTSIDE RECORDS SUMMARY | 2018-03-05 17:02 | XMS REPORT ---
:1985 Author Organization [employer] Care Team Providers Name Role Phone Gamble, [...] headache, R51 Active unspecified headache type Problem SENIOR AUDIT MANAGER (ventriculoperitoneal) shunt Z98.2 Active status Medications No Known Medications Results No Known Results Summary Purpose [employer] Submission
[2018-03-05] MEDS ORDERED: MEPERIDINE HCL 50 MG/ML AMP ONE (17:52)
[2018-03-05 18:15] LABS: Absolute Lymphocytes (CBC) 1.4 K/uL (0.7-4.9); Absolute Monocytes 0.7 K/uL (0.1-1.3); Absolute Neutrophil 9.4 K/uL (1.8-8.0); Basophils % 0.5 % (0-1.3); Eosinophils % 1.8 % (0-4.4); Hematocrit 44.8 % (39.6-49.0); Lymphocytes % 11.6 % (15.3-44.8); MCH 26.6 pg (27.0-35.0); MCV 81.2 fL (80-100); Monocytes % 6.3 % (3.3-12.3); RBC Red Blood Cell Count 5.53 M/uL (4.33-5.43)
[2018-03-05 18:25] LABS: ALT/SGPT 34 U/L (12-78); AST/SGOT 19 U/L (15-37); Albumin 2.9 g/dL (3.4-5.0); Alkaline Phosphatase 130 U/L (45-117); BUN Blood Urea Nitrogen 10 mg/dL (7-18); Bicarbonate 21 mmol/L (21-32); Bilirubin Direct 0.3 mg/dL (0-0.2); Bilirubin Total 0.7 mg/dL (0.2-1.0); Glucose Level 78 mg/dL (74-106); Lipase 50 U/L (73-393); Protein, Total 8.8 g/dL (6.4-8.2); Sodium Level 136 mmol/L (136-145)
[2018-03-05] MEDS ORDERED: PIPER/TAZO/NS 3.375gm 3.375 GM/100 ML BAG ONE (18:50)
--- NOTE | 2018-03-05 18:53 | RAD REPORT ---
EXAM DESCRIPTION: RAD - Foot Right 2 View - 03/05/2018 6:38 pm CLINICAL HISTORY: Right foot pain swelling FINDINGS: Extensive edema is present within the subcutaneous tissues. The bones are osteo parotid. No destructive bony lesion seen Prominent soft tissue along the dorsal aspect of the forefoot is nonspecific but could indicate an ab scess and should be correlated clinically. Ultrasound may be helpful
--- NOTE | 2018-03-05 18:54 | RAD REPORT ---
EXAM DESCRIPTION: RAD - Foot Left 2 View - 03/05/2018 6:47 pm CLINICAL HISTORY: Left Foot pain and swelling FINDINGS: No fracture or dislocation is seen. Soft tissue swelling is seen. No bony destructive lesion is noted. Bones are osteoporotic
[2018-03-05 18:57] LABS: Urine Amorphous Sediment 4+ /HPF (NONE SEEN); Urine Bacteria 20-50 /HPF (NONE SEEN); Urine Culture Reflex Order NOT NEEDED; Urine Mucus 1+ /HPF (NONE SEEN); Urine RBC <5 /HPF (NONE SEEN); Urine Triple Phosphate Crystal MANY (NONE SEEN)
[2018-03-05] MEDS ORDERED: NA CHLORIDE 0.9% 1,000 ML ONE (19:46)
[2018-03-05] MEDS ORDERED: ACETAMINOPHEN 325 MG TABLET ONE (19:46)
[2018-03-05 20:04] LABS: Urine Blood 1+ (NEG); Urine Glucose NEGATIVE (NEG); Urine Protein 2+ (NEG); Urine pH 8.5 (5.0-7.0)
--- NOTE | 2018-03-05 21:11 | RAD REPORT ---
EXAM DESCRIPTION: CT - Abdomen Pelvis W Contrast - 03/05/2018 8:52 pm CLINICAL HISTORY: Abdominal pain with nausea. COMPARISON: 2015 TECHNIQUE: Computed axial tomography of the abdomen pelvis was obtained. 100 cc Isovue-300 was admin istered intravenously. Oral contrast was given. DURING EXAM BETWEEN ARTERIAL AND VENOUS SCAN PT IV STARTED INFILTRATED APPROX. 30-40 CC OF CONTRAST A ND SALINE. THE TECHNOLOGIST GAVE THE PATIENT INSTRUCTIONS TO KEEP ARM ELEVATED AND COLD COMPRESS APPL IED TO SITE OF SWELLING. All CT scans are performed using dose optimization technique as appropriate and may include automated exposure control or mA/KV adjustment according to patient size. FINDINGS: The liver is enlarged. The spleen, pancreas, adrenals and kidneys appear unremarkable. The appendix is normal. There is no evidence of diverticulitis. A AUTOMATIC SEAMER shunt has its tips in the pelvis. A tiny umbilical hernia contains fat. Spina bifida is noted. A suprapubic catheter is present within the bladder. The bladder wall is thickened likely related to a chronic bladder outlet obstruction. IMPRESSION: No acute abnormality is displayed.
--- NOTE | 2018-03-05 22:02 | EDPHYS ---
Physician Documentation [facility] Name: Roland Feldman Jr Age: 32 yrs Sex: Male : 1985 Arrival Date: 03/05/2018 Time: 16:57 Bed 7 Private MD: ED Physician Jan Vang HPI: 03/05 17:03 This 32 yrs old Black Male presents to ER via EMS with complaints of Suprapubic rn catherterbackup. 17:03 The patient presents with a Alcantara catheter problem, is not draining. Onset: The rn symptoms/episode began/occurred this morning. Modifying factors: The symptoms are alleviated by nothing, the symptoms are aggravated by nothing. Severity of symptoms: At their worst the symptoms were moderate, in the emergency department the symptoms are unchanged. The patient has experienced similar episodes in the past. Reports suprapubic catheter not draining like normal, noticed a change around 0500, no fever, + abd pain, seen for similar symptoms 1 month ago, reports hasn't been on abx recently, + nausea, + chronic back pain. Historical: - Allergies: 17:02 Amoxicillin; hj 17:02 Bactrim; hj 17:02 Ciprofloxacin; hj 17:02 CLAVULANIC ACID; hj 17:02 Doxycycline; hj 17:02 Levofloxacin; hj 17:02 Morphine; hj 17:02 sulfamethoxazole; hj 17:02 Toradol; hj 17:02 TRIMETHOPRIM; hj 17:02 Vancomycin; hj 17:02 Zofran; hj - Home Meds: 17:02 metoprolol tartrate 25 mg Oral tab 1 tab 2 times per day [Active]; pantoprazole 40 mg hj Oral TbEC 1 tab once daily [Active]; ProMod Protein Oral liqd 30 mL twice a day [Active]; Vitamin C 500 mg Oral tab twice a day [Active]; zinc sulfate 220 (50) mg Oral cap daily [Active]; - PMHx: 17:02 Asthma; Cerebral Palsy; cluster headaches; decubitus ulcers on feet; GERD; hj Hydrocephalus; Hypertension; spina bifida; - PSHx: 17:02 Unable to obtain; hj - Immunization history:: Adult Immunizations up to date. - Social history:: Smoking status: Patient/guardian denies using tobacco, Patient/guardian denies using alcohol. - Ebola Screening: : Patient negative for fever greater than or equal to 101.5 degrees Fahrenheit, and additional compatible Ebola Virus Disease symptoms Patient denies exposure to infectious person Patient denies travel to an Ebola-affected area in the 21 days before illness onset. - Family history:: not pertinent. - Hospitalizations: : No recent hospitalization is reported. ROS: 17:03 Constitutional: Negative for fever, chills, and weight loss, Eyes: Negative for injury, rn pain, redness, and discharge, Cardiovascular: Negative for chest pain, palpitations, and edema, Respiratory: Negative for shortness of breath, cough, wheezing, and pleuritic chest pain, Abdomen/GI: + abd pain, + nausea Back: + chronic back pain MS/Extremity: Negative for injury and deformity, Skin: Negative for injury, rash, and discoloration, Neuro: + generalized weakness Exam: 17:03 Constitutional: This is a well developed, well nourished patient who is awake, alert, rn and in no acute distress. Head/Face: Normocephalic, atraumatic. Eyes: Pupils equal round and reactive to light, extra-ocular motions intact. Lids and lashes normal. Conjunctiva and sclera are non-icteric and not injected. Cornea within normal limits. Periorbital areas with no swelling, redness, or edema. ENT: dry MM Cardiovascular: Regular rate and rhythm with a normal S1 and S2. No gallops, murmurs, or rubs. Normal PMI, no JVD. No pulse deficits. Respiratory: Lungs have equal breath sounds bilaterally, clear to auscultation and percussion. No rales, rhonchi or wheezes noted. No increased work of breathing, no retractions or nasal flaring. Abdomen/GI: soft, + mild lower abd tenderness, no rebound MS/ Extremity: No cyanosis. + chronic pressure ulcers to bilateral feet with foul smell, no evidence of wet gangrene, no crepitus Neuro: Awake and alert, GCS 15, oriented to person, place, time, and situation. Cranial nerves II-XII grossly intact. Vital Signs: 17:03 BP 122 / 50; Pulse 95; Resp 18; Temp 99.2(O); Pulse Ox 98% on R/A; Weight 131.54 kg; hj Height 4 ft. 11 in. (149.86 cm); Pain 10/10; 18:00 BP 124 / 55; Pulse 92; Resp 18; Pulse Ox 100% on R/A; hj 18:45 BP 125 / 60; Pulse 90; Resp 18; Pulse Ox 99% on R/A; hj 19:40 BP 132 / 76; Pulse 90; Resp 18; Pulse Ox 98% ; ea 20:21 BP 124 / 87; Pulse 89; Resp 18; Pulse Ox 98% ; ea 22:13 BP 97 / 56; Pulse 86; Resp 18 S; Pulse Ox 98% on R/A; vd2 22:37 BP 116 / 83; Pulse 80; Resp 18; Temp 98.6(O); Pulse Ox 98% ; ea 23:34 BP 132 / 78; Pulse 78; Resp 18; Pulse Ox 98% on R/A; Pain 0/10; ea 17:03 Body Mass Index 58.57 (131.54 kg, 149.86 cm) hj MDM: 16:57 Patient medically screened. rn 18:43 ED course: Pt with very resistant urine culture last visit, states has had mark rn before, gives him non-bloody diarrhea, no difficulty breathing or rash. . 03/05 16:58 Order name: CBC with Diff; Complete Time: 18:28 rn 03/05 16:58 Order name: Basic Metabolic Panel; Complete Time: 18:28 rn 03/05 16:58 Order name: Blood Culture Adult (2) rn 03/05 16:58 Order name: Urine Culture rn 03/05 16:58 Order name: Hepatic Function; Complete Time: 18:28 rn 03/05 16:58 Order name: Lipase; Complete Time: 18:28 rn 03/05 16:58 Order name: Urine Microscopic Only; Complete Time: 18:58 rn 03/05 16:58 Order name: Lactate; Complete Time: 18:28 rn 03/05 17:06 Order name: Glucose, Ancillary Testing; Complete Time: 17:28 EDMS 03/05 17:28 Order name: CT Abd/Pelvis - W/Contrast; Complete Time: 21:27 rn 03/05 18:04 Order name: XRAY Foot LEFT 2 View; Complete Time: 18:58 rn 03/05 18:04 Order name: XRAY Foot RIGHT 2 View; Complete Time: 18:55 rn 03/05 18:43 Order name: Urine Dipstick--Ancillary (enter results); Complete Time: 20:50 ag 03/05 16:58 Order name: IV Start; Complete Time: 17:44 rn 03/05 16:58 Order name: Labs collected and sent; Complete Time: 17:44 rn 03/05 16:58 Order name: Urine Dipstick-Ancillary (obtain specimen); Complete Time: 17:58 rn 03/05 16:58 Order name: Bladder Irrigation; Complete Time: 19:32 rn 03/05 16:58 Order name: Bladder Scanner; Complete Time: 17:29 rn Administered Medications: 17:50 Drug: Demerol 50 mg Route: IVP; Site: right antecubital; hj 18:30 Follow up: Response: Pain is decreased hj 18:43 Drug: Zosyn 3.375 grams Route: IVPB; Infused Over: 60 mins; Site: right antecubital; hj 19:32 Follow up: IV Status: Completed infusion hj 19:47 Drug: Tylenol 650 mg Route: PO; ea 20:20 Follow up: Response: No adverse reaction; Marked relief of symptoms ea 19:48 Drug: NS 0.9% 1000 ml Route: IV; Rate: 125 ml/hr; Site: left antecubital; ea 22:38 Follow up: IV Status: Infusion continued upon admission ea 22:54 Drug: fentaNYL (PF) 50 mcg Route: IVP; Site: right forearm; ea 23:28 Follow up: Response: No adverse reaction; Pain is decreased fc Point of Care Testing: Blood Glucose: 17:03 Blood Glucose: 55 mg/dL; hj 19:40 Blood Glucose: 77 mg/dL; ea Ranges: Critical Glucose Levels:Adult <50 mg/dl or >400 mg/dl <40 mg/dl or >180 mg/dl Disposition: 03/05/18 22:01 Hospitalization ordered by Aninta Kim for Inpatient Admission. Preliminary diagnosis is Sepsis, unspecified organism. - Bed requested for Telemetry/MedSurg (Inpatient). - Status is Inpatient Admission. ea - Condition is Stable. - Problem is new. - Symptoms have improved. UTI on Admission? Yes Signatures: Dispatcher [employer] Bonnie Simmons RN RN kl Nieto, Roman, MD MD rn Joaquin, Henry, RN RN hj Antunez, Elena, RN RN ea Starr, Gregory, MD MD gs Chretien, Felicia RN Corrections: (The following items were deleted from the chart) 18:05 17:03 Constitutional: This is a well developed, well nourished patient who is awake, rn alert, and in no acute distress. Head/Face: Normocephalic, atraumatic. Eyes: Pupils equal round and reactive to light, extra-ocular motions intact. Lids and lashes normal. Conjunctiva and sclera are non-icteric and not injected. Cornea within normal limits. Periorbital areas with no swelling, redness, or edema. ENT: dry MM Cardiovascular: Regular rate and rhythm with a normal S1 and S2. No gallops, murmurs, or rubs. Normal PMI, no JVD. No pulse deficits. Respiratory: Lungs have equal breath sounds bilaterally, clear to auscultation and percussion. No rales, rhonchi or wheezes noted. No increased work of breathing, no retractions or nasal flaring. Abdomen/GI: soft, + mild lower abd tenderness, no rebound MS/ Extremity: No cyanosis. + chronic pressure ulcers to bilateral feet Neuro: Awake and alert, GCS 15, oriented to person, place, time, and situation. Cranial nerves II-XII grossly intact. rn 22:22 22:01 Hospitalization Ordered by Annita Kim MD for Inpatient Admission. Preliminary kl diagnosis is Sepsis, unspecified organism. Bed requested for Telemetry/MedSurg (Inpatient). Status is Inpatient Admission. Condition is Stable. Problem is new. Symptoms have improved. UTI on Admission? Yes. 23:35 22:22 03/05/2018 22:01 Hospitalization Ordered by Annita Kim MD for Inpatient ea Admission. Preliminary diagnosis is Sepsis, unspecified organism. Bed requested for Telemetry/MedSurg (Inpatient). Status is Inpatient Admission. Condition is Stable. Problem is new. Symptoms have improved. UTI on Admission? Yes. kl
--- NOTE | 2018-03-05 22:02 | ER ---
Nurse's Notes [facility] Name: Roland Feldman Jr Age: 32 yrs Sex: Male : 1985 Arrival Date: 03/05/2018 Time: 16:57 Bed 7 Private MD: Diagnosis: Sepsis, unspecified organism Presentation: 03/05 16:57 Presenting complaint: EMS states: hasnt produce that much urine since this AM and hj stated suprapubic catheter backup about 25 cc of urine; complaints of pain on the bladder area; denies fever and chills ut urine in bag is cloudy; BP- 153/109; KY- 107; O 2 sat 98%; BGL- 60,given a tube of sugar; post tx- 55;. Transition of care: patient was not received from another setting of care. Onset of symptoms was March 05, 2018. Risk Assessment: Do you want to hurt yourself or someone else? Patient reports no desire to harm self or others. Initial Sepsis Screen: Does the patient meet any 2 criteria? No. Patient's initial sepsis screen is negative. Does the patient have a suspected source of infection? No. Patient's initial sepsis screen is negative. Care prior to arrival: None. 16:57 Method Of Arrival: EMS: [facility] 16:57 Acuity: YUKI 3 Triage Assessment: 17:03 General: Appears in no apparent distress. uncomfortable, Behavior is calm, cooperative, hj appropriate for age. Pain: Complains of pain in pelvis. Historical: - Allergies: 17:02 Amoxicillin; 17:02 Bactrim; 17:02 Ciprofloxacin; 17:02 CLAVULANIC ACID; 17:02 Doxycycline; 17:02 Levofloxacin; 17:02 Morphine; hj 17:02 sulfamethoxazole; hj 17:02 Toradol; 17:02 TRIMETHOPRIM; 17:02 Vancomycin; 17:02 Zofran; hj - Home Meds: 17:02 metoprolol tartrate 25 mg Oral tab 1 tab 2 times per day [Active]; pantoprazole 40 mg hj Oral TbEC 1 tab once daily [Active]; ProMod Protein Oral liqd 30 mL twice a day [Active]; Vitamin C 500 mg Oral tab twice a day [Active]; zinc sulfate 220 (50) mg Oral cap daily [Active]; - PMHx: 17:02 Asthma; Cerebral Palsy; cluster headaches; decubitus ulcers on feet; GERD; hj Hydrocephalus; Hypertension; spina bifida; - PSHx: 17:02 Unable to obtain; hj - Immunization history:: Adult Immunizations up to date. - Social history:: Smoking status: Patient/guardian denies using tobacco, Patient/guardian denies using alcohol. - Ebola Screening: : Patient negative for fever greater than or equal to 101.5 degrees Fahrenheit, and additional compatible Ebola Virus Disease symptoms Patient denies exposure to infectious person Patient denies travel to an Ebola-affected area in the 21 days before illness onset. - Family history:: not pertinent. - Hospitalizations: : No recent hospitalization is reported. Screenin:03 Abuse screen: Denies threats or abuse. Denies injuries from another. Nutritional hj screening: No deficits noted. Tuberculosis screening: No symptoms or risk factors identified. Fall Risk None identified. Assessment: 17:02 General: Appears in no apparent distress. uncomfortable, obese, Behavior is calm, hj cooperative, appropriate for age, Smells of urine and wound;. Pain: Complains of pain in buttocks, right foot and left foot and pelvis Pain currently is 8 out of 10 on a pain scale. Neuro: Level of Consciousness is awake, alert, obeys commands, Oriented to person, place, time, situation, Appropriate for age. Cardiovascular: Heart tones S1 S2 present Capillary refill < 3 seconds Patient's skin is warm and dry. Respiratory: Airway is patent Respiratory effort is even, unlabored, Respiratory pattern is regular, symmetrical. GI: Abdomen is round non-distended, Bowel sounds present X 4 quads. Abd is soft Abdomen is tender to palpation in right lower quadrant and left lower quadrant Reports lower abdominal pain. : suprapubic catheter in place to gravity drainage per pt, "is leaking and i have urinated good since this morning";. EENT: No signs and/or symptoms were reported regarding the EENT system. Derm: Skin is intact, Wound noted left hamstring and left calf, L and R foot; Decubitus located on sacrum. Musculoskeletal: Circulation, motion, and sensation intact. Capillary refill < 3 seconds. 17:20 Reassessment: Patient and/or family updated on plan of care and expected duration. Pain hj level reassessed. Patient is alert, oriented x 3, equal unlabored respirations, skin warm/dry/pink. complaints of pain; MD notified with orders;. 18:00 Reassessment: Patient and/or family updated on plan of care and expected duration. Pain hj level reassessed. Patient is alert, oriented x 3, equal unlabored respirations, skin warm/dry/pink. awaiting results and possible admit;. 19:00 Reassessment: cleaned pt; BM x 1; bilateral foot re wrapped;. hj 19:36 General: Appears uncomfortable, Behavior is calm, cooperative, appropriate for age. ea Pain: Complains of pain in right lower quadrant and left foot and right foot and buttocks Pain. Neuro: Level of Consciousness is awake, alert, obeys commands, Oriented to person, place, time, situation. Cardiovascular: Heart tones S1 S2 present Patient's skin is warm and dry. Respiratory: Airway is patent Respiratory effort is even, unlabored, Respiratory pattern is regular, symmetrical. GI: Abdomen is round non-distended, Bowel sounds present X 4 quads. Abd is soft X 4 quads Abdomen is tender to palpation in left lower quadrant and right lower quadrant. : suprapubic catheter in place to gravity drainage. EENT: No signs and/or symptoms were reported regarding the EENT system. Derm: Wound noted left hamstring and right foot. Musculoskeletal: Circulation, motion, and sensation intact. 20:21 Reassessment: Patient and/or family updated on plan of care and expected duration. Pain ea level reassessed. Patient is alert, oriented x 3, equal unlabored respirations, skin warm/dry/pink. Pt complaining of pain, provider notified, no new orders at this time. 21:43 Reassessment: Patient and/or family updated on plan of care and expected duration. Pain ea level reassessed. Patient is alert, oriented x 3, equal unlabored respirations, skin warm/dry/pink. 22:37 Reassessment: Patient and/or family updated on plan of care and expected duration. Pain ea level reassessed. Patient is alert, oriented x 3, equal unlabored respirations, skin warm/dry/pink. 23:34 Reassessment: Patient and/or family updated on plan of care and expected duration. Pain ea level reassessed. Patient is alert, oriented x 3, equal unlabored respirations, skin warm/dry/pink. Report called to second floor. Pt taken via stretcher per certified master safe technician. Vital Signs: 17:03 BP 122 / 50; Pulse 95; Resp 18; Temp 99.2(O); Pulse Ox 98% on R/A; Weight 131.54 kg; hj Height 4 ft. 11 in. (149.86 cm); Pain 10/10; 18:00 BP 124 / 55; Pulse 92; Resp 18; Pulse Ox 100% on R/A; hj 18:45 BP 125 / 60; Pulse 90; Resp 18; Pulse Ox 99% on R/A; hj 19:40 BP 132 / 76; Pulse 90; Resp 18; Pulse Ox 98% ; ea 20:21 BP 124 / 87; Pulse 89; Resp 18; Pulse Ox 98% ; ea 22:13 BP 97 / 56; Pulse 86; Resp 18 S; Pulse Ox 98% on R/A; vd2 22:37 BP 116 / 83; Pulse 80; Resp 18; Temp 98.6(O); Pulse Ox 98% ; ea 23:34 BP 132 / 78; Pulse 78; Resp 18; Pulse Ox 98% on R/A; Pain 0/10; ea 17:03 Body Mass Index 58.57 (131.54 kg, 149.86 cm) hj ED Course: 16:57 Patient arrived in ED. hj 16:57 Rah Domignuez MD is Attending Physician. rn 17:01 Triage completed. hj 17:03 Arm band placed on right wrist. hj 17:05 Richard Quintana, NAIF is Primary Nurse. hj 17:05 Patient has correct armband on for positive identification. Placed in gown. Bed in low hj position. Call light in reach. Side rails up X 1. 17:35 Inserted saline lock: 24 gauge in right antecubital area, using aseptic technique. Blood collected. 17:35 Initial lab(s) drawn, by me, sent to lab. First set of blood cultures drawn by me, Urine collected: Alcantara catheter specimen, cloudy, sediment noted, Amount Returned: 45mL. 18:38 X-ray completed. Portable x-ray completed in exam room. Patient tolerated procedure bb2 well. 18:39 XRAY Foot LEFT 2 View In Process Unspecified. EDMS 18:39 XRAY Foot RIGHT 2 View In Process Unspecified. EDMS 18:46 X-ray completed. Portable x-ray completed in exam room. Patient tolerated procedure bb2 well. 19:00 Report given to NAIF Christiansen. hj 19:11 Attending Physician role handed off by Rah Dominguez MD gs 19:11 Jan Vang MD is Attending Physician. gs 19:47 Елена Funez RN is Primary Nurse. ea 20:50 CT Abd/Pelvis - W/Contrast In Process Unspecified. EDMS 21:04 CT completed. Patient tolerated procedure well. Patient moved back from CT. nj 22:00 Annita Kim MD is Hospitalizing Provider. gs 22:12 Missed attempt(s): 22 gauge in right hand. Bleeding controlled, band aid applied, vd2 catheter tip intact. 22:35 No provider procedures requiring assistance completed. ea 22:35 Missed attempt(s): 18 gauge in left upper arm. midline. Bleeding controlled, band aid fc applied, catheter tip intact. 22:36 Patient admitted, IV remains in place. ea 22:50 Inserted saline lock: 20 gauge in right forearm, using aseptic technique. fc Administered Medications: 17:50 Drug: Demerol 50 mg Route: IVP; Site: right antecubital; hj 18:30 Follow up: Response: Pain is decreased hj 18:43 Drug: Zosyn 3.375 grams Route: IVPB; Infused Over: 60 mins; Site: right antecubital; hj 19:32 Follow up: IV Status: Completed infusion hj 19:47 Drug: Tylenol 650 mg Route: PO; ea 20:20 Follow up: Response: No adverse reaction; Marked relief of symptoms ea 19:48 Drug: NS 0.9% 1000 ml Route: IV; Rate: 125 ml/hr; Site: left antecubital; ea 22:38 Follow up: IV Status: Infusion continued upon admission ea 22:54 Drug: fentaNYL (PF) 50 mcg Route: IVP; Site: right forearm; ea 23:28 Follow up: Response: No adverse reaction; Pain is decreased fc Point of Care Testing: Blood Glucose: 17:03 Blood Glucose: 55 mg/dL; hj 19:40 Blood Glucose: 77 mg/dL; ea Ranges: Outcome: 22:01 Decision to Hospitalize by Provider. gs 22:35 Condition: stable ea 22:35 Instructed on the need for admit. 23:27 Admitted to Med/surg accompanied by tech, via stretcher, room 219, with chart, Report fc called to [place] DISLA 23:35 Patient left the ED. ea Signatures: Dispatcher [employer] [facility] Shelley Currie RN RN Rah Dominguez MD MD rn Daangelo, [facility] Richard Quintana RN RN hj Jordan, Nathan nj Antunez, Elena, RN RN ea Starr, Gregory, MD MD [facility], [facility] 2 Corrections: (The following items were deleted from the chart) 22:48 20:21 Reassessment: Patient and/or family updated on plan of care and expected ea duration. Pain level reassessed. Patient is alert, oriented x 3, equal unlabored respirations, skin warm/dry/pink. ea 22:51 22:50 Inserted saline lock: 22 gauge in right forearm, using aseptic technique. fc fc
[2018-03-05] MEDS ORDERED: FENTANYL CITR 100 MCG/2 ML ONE (22:55)
--- NOTE | 2018-03-05 23:15 | P.HP ---
Certification for Inpatient Patient admitted to: Inpatient With expected LOS: >2 Midnights Practitioner: I am a practitioner with admitting privileges, knowledge of patient current condition, hospital course, and medical plan of care. Services: Services provided to patient in accordance with Admission requirements found in Title 42 Section 412.3 of the Code of Federal Regulations Patient History Date of Service: 03/05/18 Reason for admission: Intractable back pain History of Present Illness: Mr Feldman is a 32-year-old male with history of obesity, spina bifida, bed- bound with chronic left leg pressure ulcer and osteomyelitis follow-up by Dr. Hartmann, neurogenic bladder with suprapubic catheter, who came to the hospital complaining of severe back pain starting this today. The patient also said that has not been able to urinate today, and he is concerning that his suprapubic catheter is leaking and the urine is backing up. He denied any fever , chills or sweating episode at home. He also denied abdominal pain, nausea or vomiting. In ER lab workup was remarkable for leukocytosis 11.8K, UA abnormal as expected. His chronic pressure ulcer has no more secretions unusual. He was afebrile in the ER, temp was 99.2 F. Allergies levofloxacin [From Levaquin] Allergy (Intermediate, Verified 10/04/17 04:43) Hives morphine Allergy (Intermediate, Verified 10/04/17 04:43) Hives sulfamethoxazole [From Bactrim] Allergy (Intermediate, Verified 10/04/17 04:43) Hives ketorolac tromethamine [From Toradol] Allergy (Verified 10/04/17 04:43) Nausea/Vomiting vancomycin Allergy (Verified 10/04/17 04:43) Hives ondansetron [From Zofran (as hydrochloride)] Adverse Reaction (Mild, Verified 05:52) Nausea/Vomiting amoxicillin [From Augmentin] Adverse Reaction (Verified 10/04/17 04:43) Hives/Rash ciprofloxacin Adverse Reaction (Verified 10/04/17 04:43) Nausea/Vomiting doxycycline Adverse Reaction (Verified 10/04/17 04:43) Nausea/Vomiting Home Medications: Oxycodone HCl/Acetaminophen [Oxycodone-Acetaminophen 10-325] 1 tab PO QID - Past Medical/Surgical History Diabetic: No -: Spina bifida -: History of osteomyelitis -: History of recurrent UTIs with sepsis -: Hydrocephalus -: 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 He has no children. He is disabled. - Family History Father -: Hypertension Mother -: Hypertension - Social History Smoking Status: Current every day smoker Smoking therapy provided: Yes Patient receptive to therapy: No Alcohol use: Yes CD- Drugs: No Caffeine use: Yes Review of Systems 10-point ROS is otherwise unremarkable Physical Examination - Physical Exam General: Alert, In no apparent distress HEENT: Atraumatic, PERRLA, Mucous membr. moist/pink, EOMI, Sclerae nonicteric Neck: Supple, 2+ carotid pulse no bruit, No LAD, Without JVD or thyroid abnormality Respiratory: Clear to auscultation bilaterally, Normal air movement Cardiovascular: Regular rate/rhythm, Normal S1 S2 Gastrointestinal: Normal bowel sounds, No tenderness Musculoskeletal: No tenderness Integumentary: Skin lesion, Pressure ulcer (Left leg) Neurological: Normal speech, Normal affect, Other (Paraplegic) Lymphatics: No axilla or inguinal lymphadenopathy Urinary: Suprapubic catheter - Studies Laboratory Data (last 24 hrs) 03/05/18 17:40: Sodium 136, Potassium 4.0, BUN 10, Creatinine 0.70, Glucose 78, Total Bilirubin 0.7, AST 19, ALT 34, Alkaline Phosphatase 130 H, Lipase 50 L 03/05/18 17:40: WBC 11.8 H, Hgb 14.7, Hct 44.8, Plt Count 565 H Assessment and Plan - Problems (Diagnosis) (1) Intractable back pain Current Visit: Yes Status: Acute (2) Leukocytosis Onset Date: 04/29/15 Current Visit: No Status: Acute Qualifiers: Leukocytosis type: unspecified Qualified Code(s): D72.829 - Elevated white blood cell count, unspecified (3) Chronic indwelling Alcantara catheter Onset Date: 05/17/17 Current Visit: No Status: Chronic (4) Osteomyelitis Onset Date: 10/04/17 Current Visit: No Status: Chronic Qualifiers: Osteomyelitis type: chronic multifocal Osteomyelitis location: foot Laterality: left Qualified Code(s): M86.372 - Chronic multifocal osteomyelitis , left ankle and foot (5) Paraplegic spinal paralysis Onset Date: 02/03/16 Current Visit: No Status: Chronic (6) Spina bifida Onset Date: 05/17/17 Current Visit: No Status: Chronic Qualifiers: Spinal region: lumbosacral Presence of hydrocephalus: unspecified hydrocephalus presence Qualified Code(s): Q05.7 - Lumbar spina bifida without hydrocephalus (7) Stage IV pressure ulcer of heel Onset Date: 02/03/16 Current Visit: No Status: Chronic Qualifiers: Laterality: left Qualified Code(s): L89.624 - Pressure ulcer of left heel, stage 4 - Plan Dr. Feldman will be admitted to the hospital due to severe back pain. CT abdomen and pelvis showed no acute abnormality. UA is abnormal as suspected, lactate is normal, WBC are elevated, afebrile. Procalcitonin is pending. Will exchange suprapubic catheter, cover with empiric antibiotic for possible true urinary tract infection. Consult wound care. - Advance Directives Does patient have a Living Will: No Does patient have a Durable POA for Healthcare: No - Code Status/Comfort Care Code Status Assessed: Yes Code Status: Full Code
[2018-03-05] MEDS ORDERED: ONDANSETRON 4 MG/2 ML VIAL IV PRN (23:38)
[2018-03-05] MEDS ORDERED: ACETAMINOPHEN 500 MG TAB PO PRN (23:38)
[2018-03-06] MEDS ORDERED: PIPER/TAZO/NS 3.375gm 3.375 GM/100 ML BAG IVPB SCH
[2018-03-06] MEDS ORDERED: PIPER/TAZO/NS 3.375gm 3.375 GM/100 ML BAG ONE (00:41)
[2018-03-06] MEDS: NA CHLORIDE 0.9% 1,000 ML IV SCH ×4 (00:52→21:31)
[2018-03-06] MEDS ORDERED: AZTREONAM 1 GM/VIAL IV SCH (01:00)
[2018-03-06] MEDS ORDERED: AZTREONAM 1 GM/50 ML BAG IV SCH (01:00)
[2018-03-06] MEDS ORDERED: AZTREONAM 1 GM/VIAL ONE (01:44)
[2018-03-06] MEDS ORDERED: NA CHLORIDE 0.9% 50 ML ONE (01:57)
[2018-03-06] MEDS: FENTANYL CITR 100 MCG/2 ML IV PRN ×4 (03:03→15:44)
[2018-03-06 05:09] LABS: Absolute Lymphocytes (CBC) 1.1 K/uL (0.7-4.9); Absolute Monocytes 0.6 K/uL (0.1-1.3); Basophils % 0.6 % (0-1.3); Eosinophils % 3.1 % (0-4.4); Hematocrit 40.4 % (39.6-49.0); Lymphocytes % 14.2 % (15.3-44.8); MCH 26.3 pg (27.0-35.0); MCV 79.8 fL (80-100); MPV 7.8 fL (7.6-11.3); RBC Red Blood Cell Count 5.07 M/uL (4.33-5.43)
[2018-03-06 05:20] LABS: BUN Blood Urea Nitrogen 10 mg/dL (7-18); Bicarbonate 26 mmol/L (21-32); Glucose Level 114 mg/dL (74-106); Potassium 3.5 mmol/L (3.5-5.1); Sodium Level 139 mmol/L (136-145)
[2018-03-06] MEDS: ENOXAPARIN 40 MG/0.4 ML SQ SCH (08:00)
[2018-03-06] MEDS: AZTREONAM 1 GM in NA CHLORIDE 0.9% 50 ML IV SCH ×2 (09:38→17:38)
[2018-03-06] MEDS: PROMETHAZINE 25 MG/ML VIAL IV PRN ×2 (11:24→17:38)
--- NOTE | 2018-03-06 17:04 | PN ---
Date of Progress Note: 03/06/2018 Subjective: The patient is seen and examined. Chart reviewed and case discussed with RN. The patient says that he is having some pain in his wounds, specifically on his back as well. Does not report any problems with his suprapubic catheter. Review of Systems: Negative except as above. Medications: List reviewed. Physical Examination: Vital Signs: Temperature 97.9, heart rate 90, blood pressure 112/65, respirations 18, O2 sat 95% on 1 L via nasal cannula. General: Awake, alert, oriented x3, in some mild distress. Obese male. BMI 57. CV: S1, S2. No murmurs. Peripheral pulses present. Respiratory: Moving air well bilaterally. No wheezing. Gastrointestinal: Abdomen is soft, nontender, nondistended. Positive bowel sounds. Extremities: No clubbing, cyanosis. The patient does have some lower extremity edema. Neuro: paraplegic Skin: Multiple wounds on his heels bilaterally. : The patient does have a suprapubic catheter. Laboratory Data: Sodium 139, potassium 3.5, chloride 106, CO2 of 26, BUN 10, creatinine 0.8, glucose 114, calcium 8.5. Procalcitonin less than 0.05. WBC 8 , H and H of 13.3 and 40.4, platelets 519, neutrophils 74.1%. Assessment And Plan: A 32-year-old male with: 1. Intractable back pain. We will continue with IV pain medications. 2. Leukocytosis with neutrophilia. 3. Chronic indwelling Alcantara catheter. 4. Osteomyelitis, left foot and ankle multifocal. Await surgical evaluation. 5. Paraplegic, spinal paralysis. 6. Spina bifida, lumbosacral without hydrocephalus status post shunt. 7. Stage IV pressure ulcer of heel. 8. UTI secondary to GNRs. Indwelling supra pubic catheter Plan: We will continue with IV antibiotics. Follow up on cultures. Urine culture growing 4+ gram-negative rods. Does have chronic indwelling suprapubic catheter. Continue antibiotics and watch for signs of sepsis. /DUNIA Voice ID: [id number] Report ID: [id number] BERTRAND
[2018-03-06] MEDS ORDERED: ACETIC ACID 0.25% IRRIG IRR ONE (18:00)
[2018-03-06] MEDS: JUVEN PACKET PO SCH (21:00)
[2018-03-06] MEDS: MEPERIDINE HCL 25 MG/0.5 ML IV PRN (21:31)
[2018-03-07] MEDS: MEPERIDINE HCL 25 MG/0.5 ML IV PRN ×6 (00:32→20:42)
[2018-03-07] MEDS: PROMETHAZINE 25 MG/ML VIAL IV PRN ×4 (00:32→18:37)
[2018-03-07] MEDS: AZTREONAM 1 GM in NA CHLORIDE 0.9% 50 ML IV SCH ×3 (00:42→16:39)
[2018-03-07] MEDS: NA CHLORIDE 0.9% 1,000 ML IV SCH ×4 (05:38→22:02)
[2018-03-07] MEDS: ENOXAPARIN 40 MG/0.4 ML SQ SCH (09:00)
[2018-03-07] MEDS: JUVEN PACKET PO SCH ×3 (09:00→20:59)
--- NOTE | 2018-03-07 15:55 | PN ---
Date of Progress Note: 03/07/2018 Subjective: The patient is seen and examined. Chart reviewed and case discussed with RN. The patient states he is feeling some generalized malaise. Otherwise, pain is controlled with Demerol. Review of Systems: Negative except as above. Medications: List reviewed. Physical Examination: Vital Signs: Temperature 98.2, heart rate 74, blood pressure 120/74, respirations 18, O2 of 96% on gas on room . General: Awake, alert, oriented x3. Some mild distress, ill-appearing male, morbidly obese. BMI 57. CV: S1, S2. No murmurs. Respiratory: Moving air well bilaterally. No wheezing. Gastrointestinal: Abdomen is soft. Mild tenderness to palpation in the epigastric region. No guarding or rigidity. Positive bowel sounds. Suprapubic catheter in place. Extremities: No clubbing, cyanosis. The patient does have some lower extremity edema. Neuro: Paraplegic. Skin: The patient has multiple wounds including bilateral heels bandaged. Laboratory Data: Labs are pending at this time. Urine culture growing gram- negative rods. ID and sensitivity pending. Wound cultures and blood cultures pending. Blood cultures, no growth to date. Assessment And Plan: A 32-year-old male with: 1. Intractable back pain. Continue with IV analgesics. 2. Urinary tract infection, acute cystitis without hematuria secondary to gram -negative rods. The patient does have an indwelling suprapubic catheter. We will continue with IV antibiotics and follow up on culture and sensitivity. 3. Chronic indwelling Alcantara catheter. 4. possible Osteomyelitis possibly left foot and ankle, multifocal. Dr. Mary Kate joyce has been consulted. We will await surgical evaluation. Continue debridement for now. 5. Paraplegic spinal paralysis. 6. Spina bifida lumbosacral without hydrocephalus status post shunt. 7. Stage IV pressure ulcer of the heel on the right. SA/MODL Voice ID: [id number] Report ID: [id number] MTDD
[2018-03-08] MEDS: PROMETHAZINE 25 MG/ML VIAL IV PRN ×4 (00:44→23:34)
[2018-03-08] MEDS: AZTREONAM 1 GM in NA CHLORIDE 0.9% 50 ML IV SCH ×2 (00:57→08:55)
[2018-03-08] MEDS: MEPERIDINE HCL 25 MG/0.5 ML IV PRN ×6 (01:43→21:46)
[2018-03-08 05:39] LABS: Absolute Monocytes 0.7 K/uL (0.1-1.3); Absolute Neutrophil 5.9 K/uL (1.8-8.0); Basophils % 0.9 % (0-1.3); Eosinophils % 2.3 % (0-4.4); Hematocrit 42.8 % (39.6-49.0); Lymphocytes % 22.8 % (15.3-44.8); MCH 26.7 pg (27.0-35.0); MCV 81.2 fL (80-100); Monocytes % 7.7 % (3.3-12.3); RBC Red Blood Cell Count 5.27 M/uL (4.33-5.43)
[2018-03-08 06:08] LABS: ALT/SGPT 19 U/L (12-78); AST/SGOT 17 U/L (15-37); Albumin 2.1 g/dL (3.4-5.0); Alkaline Phosphatase 89 U/L (45-117); BUN Blood Urea Nitrogen 11 mg/dL (7-18); Bicarbonate 23 mmol/L (21-32); Bilirubin Total 0.4 mg/dL (0.2-1.0); Glucose Level 90 mg/dL (74-106); Potassium 4.5 mmol/L (3.5-5.1); Protein, Total 6.7 g/dL (6.4-8.2); Sodium Level 141 mmol/L (136-145)
[2018-03-08] MEDS: NA CHLORIDE 0.9% 1,000 ML IV SCH ×2 (07:14→20:08)
[2018-03-08] MEDS: JUVEN PACKET PO SCH ×2 (08:54→21:00)
[2018-03-08] MEDS: ENOXAPARIN 40 MG/0.4 ML SQ SCH (08:54)
[2018-03-08] MEDS ORDERED: ACETIC ACID 0.25% IRRIG IRR ONE (11:04)
[2018-03-08] MEDS: Meropenem 1,000 MG in NA CHLORIDE 0.9% 100 ML IV SCH ×2 (12:12→16:25)
--- NOTE | 2018-03-08 16:24 | CON ---
Please note, this is a consultation and a procedure note. Reason For Consultation: Infected wounds. Reason For Admission: Intractable back pain. History Of Present Illness: The patient is a 32-year-old gentleman with history of morbid obesity, s manning bifida, bed-bound with chronic lower extremity ulcers and osteomyelitis in the past. I have bee n seeing the patient [facility]. He came to the emergency room because of the back pain. He was evaluated and he had a new wound on his right anterior ankle, and the wound on his left heel that I have been following, had got worsened. Cultures were done and I was consulted. He is a wake, alert. Denies any fever or chills. No purulent discharge. He states that the wound has been being changed by his mother at home and has been inconsistent in the amount of care his wounds have b een getting better. No sore throat, runny nose, cough, headaches, or dizziness. No chest pain. No fever or chills. Review of Systems: Otherwise, unremarkable. Past Medical History: Significant for spina bifida, recurrent, UTI, hydrocephalus, migraines. Past Surgical History: Foot surgery, hip surgery, appendectomy, peritoneal shunt, suprapubic cathete r. Allergies: MULTIPLE REVIEWED, INCLUDE; LEVAQUIN, MORPHINE, BACTRIM, VANCOMYCIN, AMOXICILLIN, CIPRO, DOXYCYCLINE. Social History: The patient does drink alcohol. Does smoke and he has been counseled many times. Family History: Significant for hypertension. Physical Examination: Vital Signs: Stable. He is currently afebrile. General: He is awake, alert, and oriented x3. Head and Neck: No masses. Chest: Clear. Heart: S1, S2. Abdomen: Soft. Extremity: He has flaccid paralysis of lower extremity and on the right anterior ankle there is appr oximately a 10 x 8 cm open wound stage III with necrotic tissue that needs debridement. No surroundi ng erythema, warmth or edema, but the wound itself looks infected. On the left heel, the similar siz e 10 x 8 cm with large necrotic eschar in the middle, which needs debridement; and in the left yarding supervisor ior thigh, there are 2 wounds, 1 is approximately 4 cm in diameter, the other 1 is 8 cm in diameter, but these do not have any necrotic tissue that needs debridement, and there is no surrounding erythem a, warmth or edema. Laboratory Data: On admission, his white count was 11.8 with a left shift. Chemistry reviewed. The patient does have urine infection and Morganella morganii bacteria and in the wound cultures, it is growing E. coli and Morganella morganii, and all of those are sensitive to the meropenem, and they ar e resistant to most other antibiotics. Assessment: Urosepsis, infected wounds, bilateral lower extremity. Recommendations: I would recommend at least 2 weeks of IV antibiotics, PICC line, and I think the tena huang needs to be discharged to the snf facility as he is unable to care for himself adeq uately at home. As far as the wound treatment, cleaned with acetic acid, collagenase dressing. Procedure Note: Under clean conditions, scissors utilized to clean approximately 6 x 4 cm necrotic e schar on the right anterior ankle. Bleeding controlled with pressure. And, on the left heel, approx imately 6 x 4 cm necrotic eschar excised with scissors. And again, bleeding controlled with pressure . The patient tolerated the procedure in stable condition. I can follow the patient in the [facility] depending upon what the disposition is. /MODL Voice ID: [id number] Report ID: [id number]
--- NOTE | 2018-03-08 17:50 | PN ---
Subjective: Currently the patient lying in bed. He looks comfortable. No chest pain. No abdominal pain. No fever. No chills. Overnight he had debridement earlier by Dr. Hartmann and let us know, I w ould like him to go to the snf. The patient is current disappointed. He was hoping to go h ome with home health. Objective: Vital Signs: Blood pressure is 145/70, respiratory rate 18, pulse 77, temperature is 97. 8. General: The patient is alert oriented x3. Does not look in any distress. HEENT: Atraumatic, normocephalic. PERRLA oral mucosa is moist. Neck: Supple. No JVD. No carotid bruits. Chest: Clear to auscultation. Good air entry. Heart: Regular rate and rhythm. S1, S2 normal. No gallop or murmur. Abdomen: Soft. No masses. No hepatosplenomegaly. Positive bowel sounds. Suprapubic catheter note d. Extremity: No clubbing, no cyanosis. There is extensive lower extremity edema with multiple wounds on both heels with dressing. Neurologic: The patient is paraplegic, otherwise deferred. Laboratory Data: Today showed CBC within normal. Except for platelets at 493. CMP within normal. Calcium 7.9. Urine was dirty on the . Would culture from the wound, the patient grew E. coli an d Morganella morganii, which are both sensitive to meropenem. Urine culture also grew Morganella mor ganii. Blood in the wound. Assessment And Plan: 1.Questionable osteomyelitis of the left foot and ankle, . Culture grew Escherichia coli and Morganella, was sensitive to meropenem. I will switch IV antibiotic to meropenem Dr. Hartmann would like at least 2 weeks of IV antibiotics. The patient will need PICC line placement. 2.Paraplegic spinal paralysis with chronic indwelling Alcantara catheter continue. 3.Chronic back pain, improving on pain medication. 4.Urinary tract infection with Morganella, which is sensitive to meropenem as well. Continue IV ant ibiotic. 5.Spina bifida, without hydrocephalus, status post shunt. 6.Stage IV pressure ulcer of the heel. Continue follow up with Wound Care as outpatient. 7.Deep vein thrombosis prophylaxis, Lovenox. 8.Social work consult for placement after the weekend prior to IV antibiotic, at the snf fo r 2 weeks at least. 9.Wound care with collagenase. HODAN/SABINEL Voice ID: [id number] Report ID: [id number]
[2018-03-09] MEDS: MEPERIDINE HCL 25 MG/0.5 ML IV PRN ×2 (02:09→05:41)
[2018-03-09] MEDS: Meropenem 1,000 MG in NA CHLORIDE 0.9% 100 ML IV SCH ×3 (02:19→18:01)
[2018-03-09] MEDS ORDERED: SODIUM CHLORIDE 0.9% 10ML INJ IV PRN ×2 (05:15→05:18)
[2018-03-09] MEDS: NA CHLORIDE 0.9% 1,000 ML IV SCH ×2 (05:34→16:18)
[2018-03-09] MEDS: PROMETHAZINE 25 MG/ML VIAL IV PRN ×4 (05:35→23:32)
[2018-03-09 05:47] VITALS: BMI 59.5
[2018-03-09] MEDS: JUVEN PACKET PO SCH ×2 (09:00→21:00)
[2018-03-09] MEDS: ENOXAPARIN 40 MG/0.4 ML SQ SCH (09:47)
[2018-03-09] MEDS: COLLAGENASE 30 GM OINTMENT TOP SCH (09:49)
[2018-03-09] MEDS: MEPERIDINE HCL 50 MG/ML AMP IV PRN ×4 (09:58→21:53)
--- NOTE | 2018-03-09 10:57 | RAD REPORT ---
EXAM DESCRIPTION: RAD - Chest Single View - 03/09/2018 2:23 am CLINICAL HISTORY: PICC placement COMPARISON: Chest Single View dated 01/24/2018; Chest Single View dated 11/26/2017; Chest Single View dated 10/05/2017; Chest Single View dated 10/03/2017 FINDINGS: Portable chest was obtained following placement of a left upper extremity PICC line. The c atheter tip projects over the SVC..
--- NOTE | 2018-03-09 15:19 | PN ---
Subjective: Currently, the patient is lying in bed. He looks comfortable, but he is complaining of pain in his feet. He have no chest pain or shortness of breath. He continued to ask for for his nausea, but is able to eat full meals. No chest pain or shortness of breath. Review of Systems: Otherwise, negative. Objective: Vital Signs: Blood pressure is 103/58, respiratory rate 18, pulse 91, temperature 97. General: The patient is alert, oriented x3. Does not look in any distress. HEENT: Atraumatic, normocephalic. PERRLA. Oral mucosa is moist. Neck: Supple. No JVD. No carotid bruits. Chest: Clear to auscultation. Good air entry. Heart: Regular rate and rhythm. S1, S2 normal. No gallop. Abdomen: Soft, obese, positive bowel sounds. No hepatosplenomegaly. Positive suprapubic catheter n oted. Extremities: No clubbing or cyanosis. Extensive lower extremity, anasarca versus edema with multipl e wounds covered with dressing on both heels. Neurologic Exam: The patient is paraplegic. Laboratory Data: Today, CBC within normal except for platelet of 493. Chemistry within normal. Wou nd culture from right foot, 1 showed Proteus mirabilis, which is sensitive to meropenem. There is of wound culture on the left thigh and left heel, showed E. coli and Morganella morganii, as well as ur ine culture showed Morganella morganii. Assessment And Plan: 1.Questionable osteomyelitis of the left foot and ankle, status post debridement by Dr. Hartmann. Cult ure of the left leg wound grew Escherichia coli and Morganella and culture of the right foot grew Pro teus, all of them sensitive to meropenem. Dr. Hartmann would like the patient to continue IV antibiotic with meropenem for 2 weeks. The patient needs PICC line placement and discharge to long-term care f acility. Social work consult pending, Saturday to make arrangements. 2.Paraplegia with chronic indwelling Alcantara catheter. Urine culture was positive for Morganella. Th e patient on IV antibiotic with meropenem. 3.Chronic back pain. The patient on pain medication with Demerol every 4 hours. 4.Urinary tract infection, continue meropenem. 5.Spina bifida without hydrocephalus status post with shunt. 6.Stage IV pressure ulcer on the heel. Continue the wound care. The patient is status post debride ment. 7.Deep vein thrombosis prophylaxis with Lovenox. 8.Wound care by Wound Care team. 9.Discharge plan after social work find long-term care facility for IV antibiotic for the patient. So the patient will probably be discharged Saturday or Saturday that depend on discharge approval for th e placement. RAMU Voice ID: [id number] Report ID: [id number]
[2018-03-10] MEDS: MEPERIDINE HCL 50 MG/ML AMP IV PRN ×5 (01:42→22:00)
[2018-03-10] MEDS: Meropenem 1,000 MG in NA CHLORIDE 0.9% 100 ML IV SCH ×3 (01:42→17:45)
[2018-03-10] MEDS: NA CHLORIDE 0.9% 1,000 ML IV SCH ×3 (01:47→22:04)
[2018-03-10] MEDS: PROMETHAZINE 25 MG/ML VIAL IV PRN ×3 (05:48→17:46)
[2018-03-10] MEDS: JUVEN PACKET PO SCH ×2 (09:49→22:49)
[2018-03-10] MEDS: ENOXAPARIN 40 MG/0.4 ML SQ SCH (09:49)
[2018-03-10] MEDS: COLLAGENASE 30 GM OINTMENT TOP SCH (09:52)
--- NOTE | 2018-03-10 19:28 | PN ---
Date of Progress Note: 03/10/2018 Subjective: The patient is seen and examined. Chart reviewed and case discussed with RN. The patie nt is doing better. Had debridement by Dr. Hartmann. Case discussed with manager social services. The patient w ill need SNF placement. No LTAC benefits. Review of Systems: Negative except as above. Medications: List reviewed. Physical Examination: Vital Signs: Temperature 97.7, heart rate 75, blood pressure 137/89, respirations 16, O2 95% on room air. General: Awake, alert, oriented x3. No acute distress. Morbidly obese male, BMI 59, slightly ill-a ppearing. CV: S1, S2. No murmurs. Peripheral pulses present. Respiratory: Moving air well bilaterally. No wheezing. Gastrointestinal: Abdomen is soft, nontender, nondistended. Positive bowel sounds. Extremities: No clubbing, cyanosis. Does have some lower extremity edema. Neuro: flaccid paralysis lower extremities. Skin: Multiple wounds on bilateral lower extremities. Laboratory Data: Pending. Cultures on the right foot shows E. coli and Morganella Morganii, multidr ug-resistant. Wound from right foot shows Proteus, sensitive to Merrem. Wound from left thigh also shows E. coli and Morganella morganii, sensitive to meropenem. Urine culture also growing Morganella Morganii, sensitive to Merrem. Blood cultures negative to date. Chest x-ray shows PICC line in mai ce. Assessment And Plan: 1.Questionable osteomyelitis of the left foot and ankle, status post debridement. Culture growing o ut Escherichia coli and Morganella morganii. Right foot growing out Proteus and sensitive to meropen em. The patient will be 2 weeks of IV antibiotics. PICC line has been placed. Social Work has been consulted for placement to SNF. The patient voiced understanding and is agreeable to go to SNF for IV antibiotics and wound care. 2.Paraplegia with chronic indwelling Alcantara catheter. 3.Urinary tract infection, acute cystitis without hematuria. Urine culture growing out Morganella. Continue meropenem. 4.Chronic back pain. We will adjust pain medications, try to wean off Demerol, resume p.o. pain med ications. 5.Spina bifida without hydrocephalus, status post shunt. 6.Stage IV pressure ulcer on the heel. We will continue wound care offloading. 7.Deep venous thrombosis prophylaxis with Lovenox. 8.Morbid obesity, BMI 59.6. 9.Intractable back pain. /DUNIA Voice ID: [id number] Report ID: [id number]
[2018-03-11] MEDS: PROMETHAZINE 25 MG/ML VIAL IV PRN ×4 (00:26→18:15)
[2018-03-11] MEDS: Meropenem 1,000 MG in NA CHLORIDE 0.9% 100 ML IV SCH ×3 (00:30→16:18)
[2018-03-11] MEDS: NA CHLORIDE 0.9% 1,000 ML IV SCH ×3 (00:32→21:29)
[2018-03-11] MEDS: MEPERIDINE HCL 50 MG/ML AMP IV PRN ×2 (03:37→09:37)
[2018-03-11 05:11] LABS: Absolute Lymphocytes (CBC) 2.3 K/uL (0.7-4.9); Absolute Monocytes 0.8 K/uL (0.1-1.3); Absolute Neutrophil 8.3 K/uL (1.8-8.0); Eosinophils % 2.7 % (0-4.4); Lymphocytes % 19.6 % (15.3-44.8); MCH 26.6 pg (27.0-35.0); Monocytes % 6.4 % (3.3-12.3); RBC Red Blood Cell Count 5.18 M/uL (4.33-5.43)
[2018-03-11 05:35] LABS: ALT/SGPT 28 U/L (12-78); AST/SGOT 15 U/L (15-37); Albumin 2.3 g/dL (3.4-5.0); Alkaline Phosphatase 96 U/L (45-117); BUN Blood Urea Nitrogen 15 mg/dL (7-18); Bicarbonate 26 mmol/L (21-32); Bilirubin Total 0.4 mg/dL (0.2-1.0); Glucose Level 91 mg/dL (74-106); Potassium 4.1 mmol/L (3.5-5.1); Protein, Total 6.6 g/dL (6.4-8.2); Sodium Level 142 mmol/L (136-145)
[2018-03-11] MEDS: JUVEN PACKET PO SCH ×2 (09:00→21:30)
[2018-03-11] MEDS: ENOXAPARIN 40 MG/0.4 ML SQ SCH (09:35)
[2018-03-11] MEDS: COLLAGENASE 30 GM OINTMENT TOP SCH (09:45)
[2018-03-11] MEDS: OXYCODONE HCL 5 MG TAB PO PRN ×2 (16:17→21:27)
--- NOTE | 2018-03-11 20:46 | PN ---
Date of Progress Note: 03/11/2018 Subjective: The patient seen and examined. Chart reviewed and case discussed with RN and Dr. Hartmann. The patient does not have any reactions to meropenem. No rash, hives or other abnormalities. Todivya y, his insurance issues will be set up with home health to have IV infusions at home given by the [facility] and will have wound care at the [facility] and to follow up with Dr. Hartmann. He is not w illing to go to SNF due to his insurance issues. Review of Systems: Negative except as above. Medications: Reviewed. Physical Examination: Vital Signs: Temperature 97.8, heart rate 91, blood pressure 136/84, respirations 17, O2 saturation 96% on room air. General: Awake, alert, oriented x3. Morbidly obese male, not in any acute distress. CV: S1, S2. No murmurs. Peripheral pulses present. Respiratory: Moving air well bilaterally. No wheezing. No stridor. Gastrointestinal: Abdomen is soft, nontender, nondistended. Positive bowel sounds. Extremities: No clubbing, cyanosis. The patient does have lower extremity edema. Neuro: Flaccid paralysis of the lower extremities. Skin: The patient has multiple wounds on his bilateral heels and thigh. Laboratory Data: Sodium 142, potassium 4.1, chloride 110, CO2 26, BUN 15, creatinine 0.6, glucose 91 , calcium 8.8. WBC 11.8, H and H 13.8, 42, platelets 517, neutrophils 70%. Cultures: Urine culture growing Morganella Morgagni. Left heel wound and thigh wound cultures are growing E. coli and Sabino jose Morgagni. Right foot wound is growing Proteus mirabilis and right tissue wound culture is grow ing E. coli and Morganella morganii. Assessment And Plan: A 32-year-old male with: 1.Sepsis, resolving. 2.Questionable osteomyelitis of the left foot and ankle, status post debridement. 3.Paraplegia with chronic indwelling Alcantara catheter. 4.Urinary tract infection, acute cystitis without hematuria secondary to Morganella. We will contin ue with Merrem. 5.Multiple wounds growing Escherichia coli, Proteus and Morganella. We will continue with IV antibi otics with meropenem. The patient will need 2 weeks of IV antibiotics. PICC line is in place. The patient not willing to go to SNF. We will continue with home health and follow up with Wound Care [facility] in. 6.Chronic back pain. Wean off IV medications. 7.Spina bifida without hydrocephalus, status post shunt. 8.Stage IV pressure ulcer of the right heel. Continue offloading. 9.Morbid obesity, BMI 59.6. 10.Deep venous thrombosis prophylaxis with Lovenox. /DUNIA Voice ID: [id number] Report ID: [id number]
[2018-03-12] MEDS: PROMETHAZINE 25 MG/ML VIAL IV PRN ×3 (00:34→15:01)
[2018-03-12] MEDS: Meropenem 1,000 MG in NA CHLORIDE 0.9% 100 ML IV SCH ×3 (00:40→16:02)
[2018-03-12 04:51] LABS: Absolute Monocytes 0.9 K/uL (0.1-1.3); Basophils % 0.5 % (0-1.3); Eosinophils % 2.8 % (0-4.4); Hematocrit 40.1 % (39.6-49.0); Lymphocytes % 19.5 % (15.3-44.8); MCH 27.3 pg (27.0-35.0); MCV 81.3 fL (80-100); MPV 7.8 fL (7.6-11.3); Monocytes % 8.4 % (3.3-12.3); RBC Red Blood Cell Count 4.93 M/uL (4.33-5.43)
[2018-03-12 05:19] LABS: ALT/SGPT 29 U/L (12-78); AST/SGOT 13 U/L (15-37); Albumin 2.4 g/dL (3.4-5.0); Alkaline Phosphatase 90 U/L (45-117); BUN Blood Urea Nitrogen 18 mg/dL (7-18); Bicarbonate 26 mmol/L (21-32); Bilirubin Total 0.3 mg/dL (0.2-1.0); Glucose Level 125 mg/dL (74-106); Potassium 4.2 mmol/L (3.5-5.1); Protein, Total 6.8 g/dL (6.4-8.2); Sodium Level 142 mmol/L (136-145)
[2018-03-12] MEDS: NA CHLORIDE 0.9% 1,000 ML IV SCH (05:38)
[2018-03-12] MEDS: JUVEN PACKET PO SCH (08:30)
[2018-03-12] MEDS: OXYCODONE HCL 5 MG TAB PO PRN ×2 (08:30→15:00)
[2018-03-12] MEDS: ENOXAPARIN 40 MG/0.4 ML SQ SCH (08:30)
[2018-03-12] MEDS: COLLAGENASE 30 GM OINTMENT TOP SCH (08:32)
[2018-03-12] MEDS ORDERED: MEPERIDINE HCL 25 MG/0.5 ML IVP ONE (11:42)
[2018-03-12] MEDS ORDERED: MEPERIDINE HCL 50 MG/ML AMP IVP ONE (13:00)
[2018-03-12 13:31] VITALS: O2SAT 97
[2018-03-12 18:31] VITALS: BP 142/53; TEMP 97.5
--- NOTE | 2018-03-12 18:31 | PN ---
Date of Progress Note: 03/12/2018 Subjective: The patient is seen and examined. Chart reviewed and case discussed with RN. The patie nt complaining of pain after Demerol was discontinued. The patient does display some pain seeking be havior, asking the nurse methodology of how he administers pain medication, whether or not he adminis ter the pain medication and the nausea medication phenergan together if he gives a fast push or a slo w push displaying pain drug seeking behavior. According to the primary nurse, the patient does not a ppear to be in distress, otherwise has been okay with bed adjustments and has not seemed to be in adelita n. Review of Systems: Negative except as above. Medications: List reviewed. Physical Examination: Vital Signs: Temperature 97.9, heart rate 84, blood pressure 137/84, respirations 18, O2 97% on room air. General: Awake, alert, oriented x3, not in any acute distress. Morbidly obese male. CV: S1, S2. No murmurs. Peripheral pulses present. Respiratory: Moving air well bilaterally. No wheezing. Gastrointestinal: Abdomen is soft, nontender, nondistended. Positive bowel sounds. Extremities: No clubbing, cyanosis, edema. Neuro: The patient has flaccid paralysis of the lower extremities. Skin: Multiple wounds on the heels and thigh. Laboratory Data: Sodium 142, potassium 4.2, chloride 108, CO2 26, BUN 18, creatinine 0.6, glucose 12 5, calcium 8.8, albumin 2.4. WBC 10.2, H and H 13.5 and 40.1, platelets 484. Urine culture shows Mo rganella. Wound culture from the left heel shows E. coli and Morganella. Wound culture from the rig ht foot shows Proteus, E. coli, and Morganella. Assessment And Plan: A 32-year-old male with: 1.Sepsis, resolving. 2.Questionable osteomyelitis of the left foot and ankle, status post debridement. 3.Paraplegia with chronic indwelling Alcantara catheter. 4.Acute cystitis without hematuria secondary to Morganella morganii. The patient does have a chroni c indwelling catheter. We will continue with meropenem. 5.Multiple wounds growing Escherichia coli, Proteus, and Morganella on the bilateral heels and thigh . We will continue with IV antibiotics. The patient will need 2 weeks of IV antibiotics, currently being set up through home health. The patient declining SNF placement. 6.Chronic back pain. Continue home medications, narcotic. 7.Spina bifida without hydrocephalus, status post shunt. 8.Stage IV pressure ulcer of the right heel. Continue offloading and wound care. 9.Morbid obesity, BMI 59.6. 10.Deep venous thrombosis prophylaxis with Lovenox. Plan: Discharge home with home health and IV antibiotics set up. /DUNIA Voice ID: [id number] Report ID: [id number]
--- NOTE | 2018-03-15 07:44 | DS ---
Date of Discharge: 03/12/2018 Consultants: Dr. Hartmann with General Surgery. Procedures: Debridement of wounds on the lower extremity. Admitting Diagnoses: 1.Intractable back pain. 2.Leukocytosis. 3.Chronic indwelling Alcantara catheter. 4.Osteomyelitis. 5.Paraplegic spinal paralysis. 6.Spina bifida. 7.Stage IV pressure ulcer of the heel. Discharge Diagnoses: 1.Sepsis, resolved. 2.Questionable osteomyelitis of the left foot and ankle, status post debridement. 3.Paraplegia with chronic indwelling Alcantara catheter. 4.Acute cystitis without hematuria secondary to Morganella Morgagni. 5.Chronic Alcantara catheter, suprapubic. 6.Multiple wounds on the bilateral heels and thigh growing Escherichia coli, Proteus, and Morganella . 7.Chronic back pain, on chronic narcotics. 8.Spina bifida without hydrocephalus, status post shunt. 9.Stage IV pressure ulcer of the right heel. 10.Morbid obesity, BMI of 59. Hospital Course: The patient is a 32-year-old male with complicated medical history of obesity, spin a bifida, bedbound with chronic left leg pressure ulcer, osteomyelitis, [facility]. The patient also has neurogenic bladder with suprapubic catheter. The patient comes in with severe back pain. Unable to urinate. The patient's suprapubic catheter w as replaced. He was replaced recently. The patient was started on IV antibiotics and pain medicatio ns. He did have an elevated white count with left shift. Cultures were obtained. Blood cultures di d not grow any organisms. However, the urine culture grew out Morganella Morgagni. The wound cultur es from the left heel and thigh grew out E. coli and Morganella; from the right foot grew out Proteus , E. coli, and Morganella. The patient was seen by Dr. Hartmann, who has been following him for the pas t several years and the patient had debridement done. There was some questionable osteomyelitis. Th e patient had to have a PICC line placed for long-term IV antibiotics due to his multiresistant organ isms in his wounds. Home health was set up as the patient declined SNF even though I counseled him t hat he needs more [id number] care and wound care; however, due to his insurance issues as he ferguson s lost insurance when it is converted back to [employer], he declined SNF and wished to pursu e home health care, IV infusion. The patient was then set up with IV infusion therapy and was then d ischarged. His sepsis had resolved, white count normalized. The patient was counseled regarding his wound care. He voiced understanding. Followup: Follow up with primary care physician in 2-3 days. Follow up with surgeon, Dr. Hartmann at [facility] in 1 week. Return to ER for worsening condition. Complete IV infusion therapy. Weekly CBC, CRP, ESR, and CRP. Repeat cultures after antibiotics are completed. Diet: Heart healthy. Activity: As tolerated. The patient will finish up meropenem 1 g q.8 hours for 2 weeks total. Physical Examination: For physical exam findings, please see progress note dictated on the day of discharge. VIDAL Voice ID: [id number] Report ID: [id number]
== END 2018-03-12 19:13 | disposition home health service (06) | DRG 698 ==
LOC: ER 16:53 → ERHOLD 22:05 → 2ND 23:27
PROVIDERS: ADMIT Internal Medicine; ATTEND Family Medicine
PROC: 0HBNXZZ Excision of Left Foot Skin, External Approach (ICD-10-PCS; 2018-03-08)
PROC: 0HBMXZZ Excision of Right Foot Skin, External Approach (ICD-10-PCS; 2018-03-08)
PROC: 02HV33Z Insertion of Infusion Device into Superior Vena Cava, Percutaneous Approach (ICD-10-PCS; principal; 2018-03-09)
DX: T83.518A Infection and inflammatory reaction due to other urinary catheter, initial encounter (principal); A41.9 Sepsis, unspecified organism; L89.614 Pressure ulcer of right heel, stage 4; L89.513 Pressure ulcer of right ankle, stage 3; N30.00 Acute cystitis without hematuria; G82.20 Paraplegia, unspecified; Z68.43 Body mass index [BMI] 50.0-59.9, adult; M86.372 Chronic multifocal osteomyelitis, left ankle and foot; B96.4 Proteus (mirabilis) (morganii) as the cause of diseases classified elsewhere; B96.20 Unspecified Escherichia coli [E. coli] as the cause of diseases classified elsewhere; B96.89 Other specified bacterial agents as the cause of diseases classified elsewhere; Q05.9 Spina bifida, unspecified; M54.9 Dorsalgia, unspecified; G89.29 Other chronic pain; E66.01 Morbid (severe) obesity due to excess calories; Z98.2 Presence of cerebrospinal fluid drainage device; Z88.1 Allergy status to other antibiotic agents; Z88.5 Allergy status to narcotic agent; Z88.2 Allergy status to sulfonamides
CPT/HCPCS: 36415; 71045; 74177; 80048; 80053; 80076; 81003; 81015; 82962; 83605; 83690; 84145; 85025; 87040; 87070; 87077; 87086; 87088; 87176; 87186; 87205; 99285; J1650; J2175; J2543; J2550; J3010; J3590; J7030; Q9967

== ENCOUNTER 2018-04-01 11:14 | Observation (INO) | payer OTHER ==
--- OUTSIDE RECORDS SUMMARY | 2018-04-01 11:16 | XMS REPORT | Clinical Summary ---
:1985 Author Organization [facility] Address [address] [place] [address] Phone Care Team Providers Name Role Phone [...] Not on file Results Not on fileafter 03/31/2017
--- OUTSIDE RECORDS SUMMARY | 2018-04-01 11:17 | XMS REPORT | Continuity of Care Document ---
:1985 Author Organization Interface Problems Problem Status Onset Classification Date Comments Source Date Reported SHUNT MALFUNCTION Active 11/15/[address] ACUTE HEADACHE Active 11/15/[address] Acute pain Active Problem 11/22/2017 [facility] Asthma Resolved Problem 11/22/2017 [facility] Bronchitis Resolved Problem 11/22/2017 [facility] Cerebral palsy Resolved Problem 11/22/2017 [facility] Headache Active Problem 11/22/2017 [facility] Hydrocephalus Resolved Problem 11/22/2017 [facility] Osteomyelitis Resolved Problem 11/22/2017 [facility] HEADACHE Active [facility] Medications Medication Details Route Status Patient Ordering Order Source Instructions Provider Date Docusate Sodium 100 mg=1 cap, Active 11/19[facility] [place] 100 MG Oral PO, BID, 0 2018 Medical Capsule Refill(s) [place] Zosyn 0 Refill(s) Active [facility] 2018 Medical [place] celecoxib 200 200 mg=1 cap, Active 11/19[facility] [place] mg oral capsule PO, BID, 0 2018 Medical Refill(s) [place] ascorbic acid 500 mg=1 tab, Active 11/19[facility] [place] PO, BID, 0 2018 Medical Refill(s) Center acetaminophen 1,000 mg=2 tab, Active 11/19[facility] [place] 500 mg oral PO, Q6Hnow, 0 2018 Medical tablet Refill(s) [place] Oxycodone 5 mg=1 tab, PO, Active 11/19[facility] [place] Hydrochloride 5 Q4H, PRN Pain 2018 Medical MG Oral Tablet Score 4-6, 0 Center Refill(s) zinc sulfate 220 mg=1 cap, Active 11/19[facility] [place] 220 mg oral PO, Daily, 0 2018 Medical capsule Refill(s) [place] multivitamin 1 tab, PO, Active 11/19[facility] [place] Daily, 0 2018 Medical Refill(s) Center methocarbamol 1,000 mg=2 tab, Active 11/19[facility] [place] 500 mg oral PO, Q8H, 0 2018 Medical tablet Refill(s) Center LORazepam 0.5 0.5 mg=1 tab, Active [place] mg oral tablet PO, Q8H, PRN 2018 Medical Anxiety, 0 Center Refill(s) Lidocaine 3 patch, TOP, Active [facility] Hydrochloride Daily, Remove 2018 Medical 0.05 MG/MG after 12 hours, Center Transdermal 0 Refill(s) Patch [Lidoderm] Robaxin 1,000 mg, 2 No Longer [facility] tab, Route: PO, Active 2018 Medical Drug form: TAB, Center Q8H, Dosing Weight 127.027, kg, Start date: 11/17/17 16:00:00 CDT, Duration: 30 day, Stop date: 12/17/17 8:00:00 CDTNotes: (Same as:Robaxin) Oxycodone 10 mg, 2 tab, No Longer [facility] Hydrochloride 5 Route: PO, Drug Active 2018 Medical MG Oral Tablet form: TAB, Center Daily, Dosing Weight 127.027, kg, PRN Procedure, Start date: 11/17/17 13:06:00 CDT, Duration: 30 day, Stop date: 12/17/17 13:05:00 CDTNotes: (Same as: Roxicodone) Ativan 0.5 mg, 1 tab, No Longer [facility] Route: PO, Drug Active 2017 Medical form: TAB, Q8H, Center Dosing Weight 127.027, kg, PRN Anxiety, Start date: 11/17/17 10:18:00 CDT, Duration: 7 day, Stop date: 11/24/17 10:17:00 CDTNotes: (Same as: Ativan) Trazodone 50 mg, 1 tab, No Longer [facility] Hydrochloride Route: PO, Drug Active 2018 Medical 50 MG Oral form: TAB, Center Tablet Bedtime, Dosing Weight 127.027, kg, Start date: 11/16/17 21:00:00 CDT, Duration: 30 day, Stop date: 12/15/17 21:00:00 CDTNotes: (Same As: Desyrel) remove patch 3 patch, Route: No Longer [facility] TOP, Bedtime, Active 2017 Medical Drug form: Center ERFILM, Start date: 11/16/17 21:00:00 CDT, Duration: 30 day, Stop date: 12/15/17 21:00:00 CDTNotes: Remove patch 12 hours after application each day. Oxycodone 10 mg, 2 tab, Inactive [facility] Hydrochloride 5 Route: PO, Drug 2018 Medical MG Oral Tablet form: TAB, Center ONCE, Dosing Weight 127.027, kg, Start date: 11/16/17 17:01:00 CDT, Stop date: 11/16/17 17:01:00 CDTNotes: (Same as: Roxicodone) Celebrex 200 mg, 1 cap, No Longer [facility] Route: PO, Drug Active 2018 Medical form: CAP, BID, [place] Dosing Weight 127.027, kg, Start date: 11/16/17 17:00:00 CDT, Duration: 30 day, Stop date: 12/16/17 9:00:00 CDTNotes: NSAID. Please check indication. Not for seizure. (Same As: CeleBREX) Vancomycin 1,500 mg, 250 No Longer [facility] mL, Route: Active 2018 Medical IVPB, Drug Center form: INJ, [id number], Dosing Weight 127.27, kg, Start date: 11/16/17 16:00:00 CDT, Stop date: 11/21/17 8:00:00 CDT, ABX Indication: Skin/Soft Tissue InfectionNotes: TIME CRITICAL MEDICATION Same as: Vancocin-NS (premixed) Infusion rate 2001 mg: infuse over 2.5 hours Lidocaine 3 patch, Route: No Longer [place] Hydrochloride TOP, Daily, Active 2018 Medical 0.05 MG/MG Drug form: [place] Transdermal FILM, Start Patch date: 11/16/17 [Lidoderm] [...] as: Phenergan) Dilaudid 0.5 mg, 0.25 Inactive [place] mL, Route: IVP, 2017 Medical Drug form: INJ, Center ONCE, Dosing Weight 127.027, kg, Priority: NOW, Start date: 11/15/17 17:40:00 CDT, Stop date: 11/15/17 17:40:00 CDTNotes: Same as Dilaudid Tramadol 100 mg, 2 tab, No Longer [facility] Route: PO, Drug Active 2017 Medical form: TAB, Center Q6Hnow, Dosing Weight 127.027, kg, Start date: 11/15/17 17:00:00 CDT, Duration: 30 day, Stop date: 12/15/17 11:00:00 CDTNotes: Not to exceed 400mg/day. (Same As: Ultram) gabapentin 600 mg, 2 cap, No Longer [facility] Route: PO, Drug Active 2017 Medical form: CAP, Center Q8Hnow, Dosing Weight 127.027, kg, Start date: 11/15/17 17:00:00 CDT, Stop date: 12/15/17 9:00:00 CDTNotes: (Same as: Neurontin) Acetaminophen 1,000 mg, 2 No Longer [facility] tab, Route: PO, Active 2017 Medical Drug form: TAB, Center Q6Hnow, Dosing Weight 127.027, kg, Start date: 11/15/17 17:00:00 CDT, Duration: 30 day, Stop date: 12/15/17 11:00:00 CDTNotes: Max acetaminophen 4000 mg/day (4 gm/day). (Same as: Tylenol Extra Strength) Robaxin 500 mg, 1 tab, No Longer [facility] Route: PO, Drug Active 2017 Medical form: TAB, TID, Center Dosing Weight 127.027, kg, Start date: 11/15/17 17:00:00 CDT, Duration: 30 day, Stop date: 12/15/17 13:00:00 CDTNotes: (Same as:Robaxin) Oxycodone 5 mg, 1 tab, No Longer [facility] Hydrochloride 5 Route: PO, Drug Active [...] 325 MG / 0 Refill(s) Active 2018 [facility] Oxycodone Center Hydrochloride 10 MG Oral Tablet [Percocet 10/325] Dilaudid 0.5 mg, 0.25 Inactive [place] mL, Route: IVP, 2017 Medical Drug form: INJ, Center ONCE, Start date: 11/15/17 11:01:00 CDT, Stop date: 11/15/17 11:01:00 CDT Phenergan 25 mg, 1 tab, Inactive [facility] Route: PO, Drug 2018 Medical form: [...] Docusate 100 mg, 1 cap, No Longer [facility] Route: PO, Drug Active 2018 Medical form: CAP, BID, Center Dosing Weight 127.27, kg, Start date: 11/15/17 9:00:00 CDT, Duration: 30 day, Stop date: 12/14/17 17:00:00 CDTNotes: (Same as: Colace) (Do Not Crush) Zinc Sulfate 220 mg, 1 cap, No Longer [facility] Route: PO, Drug Active 2018 Medical form: CAP, Center Daily, Dosing Weight 127.27, kg, Start date: 11/15/17 9:00:00 CDT, Duration: 30 day, Stop date: 12/14/17 9:00:00 CDTNotes: (Zinc sulfate capsule) - 220 mg Zinc sulfate=50 mg elemental zinc Same as Zinc Sulfate ascorbic acid 500 mg, 1 tab, No Longer [facility] Route: PO, Drug Active 2017 Medical form: TAB, BID, Center Dosing Weight 127.27, kg, Start date: 11/15/17 9:00:00 CDT, Duration: 30 day, Stop date: 12/14/17 17:00:00 CDTNotes: (Same as: Vitamin C) multivitamin 1 tab, Route: No Longer [facility] PO, Drug Form: Active 2018 Medical TAB, Dosing Center Weight 127.27, kg, Daily, Start date: 11/15/17 9:00:00 CDT, Duration: 30 day, Stop date: 12/14/17 9:00:00 CDTNotes: (Same as:Thera) WASTE: F/P - Black; E - Municipal Trash Bin Take with food. Naproxen 500 mg, 1 tab, Inactive [place] Route: PO, Drug 2017 Medical form: TAB, Center [id number], Dosing Weight 127.27, kg, Start date: 11/15/17 2:00:00 CDT, Duration: 30 day, Stop date: 12/14/17 14:00:00 CDTNotes: (Same as: Naprosyn) Take with food. Zosyn 3.375 gm, No Longer [facility] Route: IVPB, Active 2018 Medical Drug [...] Enoxaparin 40 mg, 0.4 mL, No Longer [facility] Route: SUB-Q, Active 2017 Medical Drug form: INJ, Center [id number], Dosing Weight 127.27, kg, Consider for obese [...] Stop date: 12/15/17 1:45:00 CDTNotes: (Same as: Lena 325/5) Do not exceed 4gm/day of acetaminophen. [...] Benadryl) Magnesium 2 gm, 50 mL, Inactive [facility] Sulfate Route: IV, Drug 2017 Medical form: INJ, Center ONCE, Dosing Weight 127.273, kg, Priority: STAT, Start date: 11/14/17 23:26:00 CDT, Stop date: 11/14/17 23:26:00 CDTNotes: WASTE: F/P - Sink; E - Municipal Trash Bin Sodium Chloride 1,000 mL, 1000 Inactive [facility] 0.9% (Bolus) IV ml/hr, Infuse 2018 [...] Extra Strength) Rocephin 1 gm, Route: Inactive 05/04[facility] IVP, Drug form: 2018 Medical PDR/INJ, ONCE, Center Dosing Weight 127.273, kg, Priority: STAT, Start date: 11/14/17 21:21:00 CDT, Stop date: 11/14/17 21:21:00 CDT, ABX Indication: Urinary Tract InfectionNotes: (Same As: Rocephin). MEDICATION WASTE Product Size: 1000 mg Product Wasted: _0__ mg Morphine 4 mg, Route: Inactive 11/15[facility] IVP, ONCE, 2018 Medical Dosing Weight Center 127.273, kg, Priority: STAT, Start date: 11/14/17 19:05:00 CDT, Stop date: 11/14/17 19:05:00 CDT Benadryl 25 mg, 0.5 mL, Inactive 11/14[facility] Route: IVP, 2017 Medical Drug form: INJ, Center ONCE, Dosing Weight 127.273, kg, Priority: STAT, Start date: 11/14/17 18:14:00 CDT, Stop date: 11/14/17 18:14:00 CDTNotes: (Same as: Benadryl) Benadryl 50 mg, 2 cap, Inactive 11/14[facility] Route: PO, Drug 2017 Medical form: CAP, Center ONCE, Dosing Weight 127.273, kg, Priority: STAT, Start date: 11/14/17 17:56:00 CDT, Stop date: 11/14/17 17:56:00 CDTNotes: (Same as: Benadryl) Morphine 4 mg, 1 mL, Inactive 11/14[facility] Route: IVP, 2017 Medical Drug form: Center SOLN, ONCE, Dosing Weight 127.273, kg, Priority: STAT, Start date: 11/14/17 17:56:00 CDT, Stop date: 11/14/17 17:56:00 CDT Allergies, Adverse Reactions, Alerts Substance Category Reaction Severity Reaction Status Date Comments Source type Reported amoxicillin Assertion Drug Active [facility] morphine Assertion Drug Active [facility] Toradol Assertion Drug Active [facility] Minocin Assertion Drug Active [facility] Zofran Assertion Drug Active [facility] Levaquin Assertion Drug Active [facility] Bactrim Assertion Drug Active [facility] NKDA Assertion Drug Active [facility] Immunizations Immunization Date Given Site Status Last Updated Comments Source Results Order Name Results Value Reference Date Interpretation Comments Source Range CHEM PANEL B/C Ratio 17 6 - 25 11/[address] CHEM PANEL Globulin 4.3 g/dL 2.7 - 4.2 11/[address] CHEM PANEL A/G Ratio 0.7 0.7 - 1.6 11/[address] CHEM PANEL AGAP 14.4 meq/L 10.0 - 11/19 [facility] 20.0 [facility] CHEM PANEL eGFR 113 11/19 Result Comment: The eGFR is calculated using the CKD-EPI formula. In most young, healthy individuals the eGFR will be >90 mL/ min/1.73m2. The eGFR declines with age. An eGFR of 60-89 may be normal in [facility] mL/min/1.7 some populations, particularly the elderly, for whom the CKD-EPI formula has not been extensively validated. Use of the eGFR is not recommended in the following populations: [address] Individuals with unstable creatinine concentrations, including [...] Phos 76 unit/L 39 - 136 11/[address] CHEM PANEL ALT 35 unit/L 0 - 65 11/[address] CHEM PANEL Albumin Lvl 2.8 g/dL 3.5 - 5.0 11/[address] CHEM PANEL Total Protein 7.1 g/dL 6.4 - 8.4 11/[address] CHEM PANEL Calcium Lvl 8.7 mg/dL 8.5 - 10.5 11/[address] CHEM PANEL AST 18 unit/L 0 - 37 11/[address] CHEM PANEL Bili Total 0.3 mg/dL 0.2 - 1.3 11/[address] CHEM PANEL Potassium Lvl 4.4 meq/L 3.5 - 5.1 11/[address] [place] [address] CHEM PANEL Chloride Lvl 109 meq/L 95 - 109 05 2017 [facility] CHEM PANEL CO2 23 meq/L 24 - 32 11/[address] CHEM PANEL Glucose Lvl 114 mg/dL 70 - 99 11/[address] CHEM PANEL Creatinine 1.01 mg/dL 0.50 - 11/19 [place] Lvl 1.40 /2017 [facility] CHEM PANEL BUN 17 mg/dL 7 - 22 11/[address] CHEM PANEL Sodium Lvl 142 meq/L 135 - [address] HEMATOLOGY Basophils 0.6 % 0.0 - 1.0 11/[address] HEMATOLOGY Segs-Bands # 4.8 K/CMM 1.5 - 8.1 11/[address] HEMATOLOGY Monocytes # 0.7 K/CMM 0.0 - 0.8 11/19 [facility] [address] [place] [address] HEMATOLOGY Lymphocytes # 1.9 K/CMM 1.0 - 5.5 11/[address] HEMATOLOGY Monocytes 9.4 % 2.0 - 12.0 11/[address] HEMATOLOGY Eosinophils # 0.2 K/CMM 0.0 - 0.5 11/[address] HEMATOLOGY Eosinophils 2.9 % 0.0 - 4.0 11/[address] HEMATOLOGY Segs 62.2 % 45.0 - 11/19 [place] 75.0 [facility] HEMATOLOGY Lymphocytes 24.9 % 20.0 - 11/19 [place] 40.0 [facility] HEMATOLOGY MCH 27.5 pg 27.0 - 11/19 31.0 [facility] HEMATOLOGY MCV 85.3 fL 80.0 - 11/19 [place] 94.0 [facility] HEMATOLOGY Hct 43.9 % 42.0 - 11/19 [place] 54.0 [facility] HEMATOLOGY Hgb 14.2 g/dL 14.0 - 11/19 [place] 18.0 [facility] HEMATOLOGY WBC 7.7 K/CMM 3.7 - 10.4 11/[address] HEMATOLOGY RBC 5.15 M/CMM 4.70 - 11/19 [facility] [place] 6.10 [facility] HEMATOLOGY MPV 8.4 fL 7.4 - 10.4 11/19 [facility] HEMATOLOGY MCHC 32.3 g/dL 32.0 - 11/19 [facility] 36.0 [facility] HEMATOLOGY RDW 17.3 % 11.5 - 11/19 [facility] 14.5 [facility] HEMATOLOGY Platelet 317 K/CMM 133 - 450 11/19 2017 [facility] CHEM PANEL Globulin 4.4 g/dL 2.7 - 4.2 11/[address] CHEM PANEL A/G Ratio 0.6 0.7 - 1.6 11/[address] CHEM PANEL B/C Ratio 17 6 - 25 11/18 2017 [facility] CHEM PANEL AGAP 11.3 meq/L 10.0 - 11/18 [facility] 20.0 [facility] CHEM PANEL eGFR 134 11/18 Result Comment: The eGFR is calculated using the CKD-EPI formula. In most young, healthy individuals the eGFR will be >90 mL/ min/1.73m2. The eGFR declines with age. An eGFR of 60-89 may be normal in [facility] mL/min/1. some populations, particularly the elderly, for whom the CKD-EPI formula has not been extensively validated. Use of the eGFR is not recommended in the following populations: [address] Individuals with unstable creatinine concentrations, including [...] PANEL Creatinine 0.84 mg/dL 0.50 - 11/18 [facility] Lvl 1.40 [facility] CHEM PANEL Sodium Lvl 142 meq/L 135 - 145 11/[address] CHEM PANEL Glucose Lvl 99 mg/dL 70 - 99 11/[address] CHEM PANEL BUN 14 mg/dL 7 - 22 11/[address] CHEM PANEL Alk Phos 79 unit/L 39 - 136 11/[address] CHEM PANEL Bili Total 0.3 mg/dL 0.2 - 1.3 11/[address] CHEM PANEL AST 14 unit/L 0 - [address] CHEM PANEL ALT 43 unit/L 0 - 65 11/[address] CHEM PANEL Total Protein 7.1 g/dL 6.4 - 8.4 11/[address] CHEM PANEL Albumin Lvl 2.7 g/dL 3.5 - 5.0 11/[address] CHEM PANEL Calcium Lvl 9.2 mg/dL 8.5 - 10.5 11/[address] CHEM PANEL CO2 21 meq/L 24 - 32 11/[address] CHEM PANEL Potassium Lvl 4.3 meq/L 3.5 - 5.1 11/[address] CHEM PANEL Chloride Lvl 114 meq/L 95 - 109 11/[address] HEMATOLOGY MCHC 32.5 g/dL 32.0 - 11/18 [facility] 36.0 [facility] HEMATOLOGY RDW 17.5 % 11.5 - 11/18 [facility] 14.5 [facility] HEMATOLOGY Platelet 400 K/CMM 133 - 450 11/[address] HEMATOLOGY MPV 8.5 fL 7.4 - 10.4 11/[address] HEMATOLOGY WBC 6.6 K/CMM 3.7 - 10.4 11/[address] HEMATOLOGY RBC 5.17 M/CMM 4.70 - 11/18 [facility] 6.10 [facility] HEMATOLOGY MCV 86.1 fL 80.0 - 11/18 94.0 [facility] HEMATOLOGY Hct 44.5 % 42.0 - 11/18 54.0 [facility] HEMATOLOGY MCH 28.0 pg 27.0 - 11/18 [facility] 31.0 [facility] HEMATOLOGY Hgb 14.5 g/dL 14.0 - 11/18 [facility] 18.0 [facility] HEMATOLOGY Lymphocytes # 1.7 K/CMM 1.0 - 5.5 11/[address] HEMATOLOGY Monocytes # 0.7 K/CMM 0.0 - 0.8 11/[address] HEMATOLOGY Eosinophils # 0.2 K/CMM 0.0 - 0.5 11/[address] HEMATOLOGY Lymphocytes 26.1 % 20.0 - 11/18 [place] 40.0 [facility] HEMATOLOGY Segs 59.3 % 45.0 - 11/18 [facility] 75.0 [facility] HEMATOLOGY Basophils 0.8 % 0.0 - 1.0 11/[address] HEMATOLOGY Monocytes 10.5 % 2.0 - 12.0 11/[address] HEMATOLOGY Eosinophils 3.3 % 0.0 - 4.0 11/[address] HEMATOLOGY Segs-Bands # 3.9 K/CMM 1.5 - 8.1 11/[address] CHEM PANEL Glucose Lvl 74 mg/dL 70 - 99 11/[address] CHEM PANEL BUN 12 mg/dL 7 - 22 11/[address] CHEM PANEL Creatinine 0.75 mg/dL 0.50 - 11/17 [facility] Lvl 1.40 [facility] CHEM PANEL eGFR 140 11/17 Result Comment: The eGFR is calculated using the CKD-EPI formula. In most young, healthy individuals the eGFR will be >90 mL/ min/1.73m2. The eGFR declines with age. An eGFR of 60-89 may be normal in [facility] mL/min/1.7 some populations, particularly the elderly, for whom the CKD-EPI formula has not been extensively validated. Use of the eGFR is not recommended in the following populations: [address] Individuals with unstable creatinine concentrations, including [...] Lvl 2.9 g/dL 3.5 - 5.0 11/17 [facility] [address] [place] [address] CHEM PANEL Globulin 4.4 g/dL 2.7 - 4.2 11/[address] CHEM PANEL A/G Ratio 0.7 0.7 - 1.6 11/[address] CHEM PANEL Bili Total 0.4 mg/dL 0.2 - 1.3 11/[address] CHEM PANEL Alk Phos 71 unit/L 39 - 136 05/ [address] [place] [address] CHEM PANEL AST 15 unit/L 0 - [address] CHEM PANEL ALT 28 unit/L 0 - 65 11/[address] CHEM PANEL Potassium Lvl 4.4 meq/L 3.5 - 5.1 11/[address] CHEM PANEL Sodium Lvl 147 meq/L 135 - [address] CHEM PANEL CO2 25 meq/L 24 - [address] CHEM PANEL Chloride Lvl 114 meq/L 95 - 109 11/[address] CHEM PANEL B/C Ratio 16 6 - 25 11/[address] CHEM PANEL Calcium Lvl 8.7 mg/dL 8.5 - 10.5 11/[address] CHEM PANEL AGAP 12.4 meq/L 10.0 - 11/17 20.0 [facility] CHEM PANEL Total Protein 7.3 g/dL 6.4 - 8.4 11/17 [facility] [address] [place] [address] HEMATOLOGY Platelet 345 K/CMM 133 - 450 05 [facility] [address] [place] [address] HEMATOLOGY MPV 8.7 fL 7.4 - 10.4 11/[address] HEMATOLOGY WBC 6.9 K/CMM 3.7 - 10.4 11/[address] HEMATOLOGY RBC 5.30 M/CMM 4.70 - 11/17 6.10 [facility] HEMATOLOGY MCHC 32.8 g/dL 32.0 - 11/17 36.0 [facility] HEMATOLOGY MCH 27.9 pg 27.0 - 11/17 31.0 [facility] HEMATOLOGY Hgb 14.8 g/dL 14.0 - 05 18.0 [facility] HEMATOLOGY MCV 85.0 fL 80.0 - 11/17 94.0 [facility] HEMATOLOGY Hct 45.1 % 42.0 - 11/17 [facility] 54.0 [facility] HEMATOLOGY RDW 17.5 % 11.5 - 05 14.5 [facility] HEMATOLOGY Eosinophils # 0.2 K/CMM 0.0 - 0.5 11/[address] HEMATOLOGY Lymphocytes # 2.0 K/CMM 1.0 - 5.5 05/ [address] HEMATOLOGY Monocytes # 0.7 K/CMM 0.0 - 0.[address] HEMATOLOGY Eosinophils 2.4 % 0.0 - 4.[address] HEMATOLOGY Basophils 0.6 % 0.0 - 1.0 11/[address] HEMATOLOGY Segs-Bands # 4.0 K/CMM 1.5 - 8.1 11/[address] HEMATOLOGY Monocytes 10.4 % 2.0 - 12.0 11/[address] HEMATOLOGY RBC Morph Normal 11/[address] (11/17/17 2:07 AM) [place] HEMATOLOGY Segs 58.1 % 45.0 - 05 [facility] 75.0 [facility] HEMATOLOGY Plt Morph Normal 11/[address] (11/17/17 2:07 AM) [place] HEMATOLOGY Lymphocytes 28.5 % 20.0 - 11/17 [facility] 40.0 [facility] HEMATOLOGY Basophils # 0.1 K/CMM 0.0 - 0.[address] HEMATOLOGY Polychrom Moderate None Seen 11/16 [facility] [address] [place], [place] [address]ABN* Center (11/16/17 11:07 AM) CHEM PANEL Magnesium Lvl 2.3 mg/dL 1.8 - 2.4 11/[address] CHEM PANEL Phosphorus 3.5 mg/dL 2.5 - 4.5 11/[address] HEMATOLOGY PT 14.0 s 12.0 - 11/15 [facility] 14.7 [facility] HEMATOLOGY PTT 37.6 s 22.9 - 11/15 [facility] 35.8 [facility] HEMATOLOGY INR 1.08 0.85 - 11/15 [facility] 1.17 [facility] IMMUNOLOGY C-REACTIVE 13.1 mg/L <=2.9 mg/L 11/15 [facility] PROTEIN [address] [place] [address] IMMUNOLOGY Prealbumin 25.2 mg/dL 18.0 - 05/04 [place] 45.0 [facility] CHEM PANEL Lactic Acid 0.9 mMol/L 0.5 - 2.2 11/15 [facility] Lvl [facility] HEMATOLOGY Sed Rate 5 mm/h 0 - 15 11/15 [facility] IMMUNOLOGY C-REACTIVE 15.8 mg/L <=2.9 mg/L 11/15 [facility] PROTEIN [facility] HEMATOLOGY PT 13.0 s 12.0 - 11/15 [place] 14.7 [facility] HEMATOLOGY INR 0.98 0.85 - 11/15 [place] 1.17 [facility] HEMATOLOGY PTT 33.2 s 22.9 - 11/15 [place] 35.8 [facility] BLOOD BANK Antibody Scrn Negative 11/14 [facility] RESULTS [facility] (11/14/17 6:51 PM) [facility] BLOOD BANK ABO/Rh AB POS 11/14 [facility] RESULTS [facility] URINE AND UA 0.2 EU/dL 0.1 - 1.0 11/14 [facility] Urobilinogen /2017 [facility] URINE AND UA Nitrite Negative Negative 11/14 [facility] (11/14/17 6:35 PM) [facility] URINE AND UA Glucose Negative Negative 11/14 [facility]2017 [facility] (11/14/17 6:35 PM) [facility] URINE AND UA Ketones Negative Negative 11/14 [facility] Medical *NA* [facility] (11/14/17 6:35 PM) URINE AND UA Bili Negative Negative 11/14 [facility] *NA* [facility] (11/14/17 6:35 PM) URINE AND UA Blood Trace Negative 11/14 [facility] *ABN* [facility] (11/14/17 6:35 PM) URINE AND UA Leuk Est Small Negative 11/14 [facility] *ABN* [facility] (11/14/17 6:35 PM) URINE AND UA Spec Grav 1.020 <=1.030 11/14 [facility] STOOL [address] URINE AND UA pH 6.0 5.0 - 8.0 11/14 [facility] STOOL [address] URINE AND UA Color Yellow Yellow 11/14 [facility] *NA* [place] (11/14/17 6:35 PM) URINE AND UA Protein Trace Negative 11/14 [facility] Medical *ABN* [facility] (11/14/17 6:35 PM) URINE AND UA Turbidity Slight Cloudy Clear 11/14 [facility]2017 [facility] (11/14/17 6:35 PM) [facility] URINE AND UA Hyal Cast 0-2 0 - 2 11/14 [facility] [address] [place] [address] (11/14/17 6:35 PM) [facility] URINE AND UA Bacteria Occasional None Seen 11/14 [facility] STOOL /HPF /HPF /2017 [facility] URINE AND UA RBC 11-20 /HPF 0 - 2 11/[address] URINE AND UA Sq Epi Occasional Few /LPF 11/14 [facility] STOOL /LPF /[address] [place] [address] URINE AND UA WBC 51-100 None Seen 11/14 [facility] STOOL /HPF /HPF /2017 [facility] HEMATOLOGY Basophils # 0.1 K/CMM 0.0 - 0.2 11/[address] HEMATOLOGY Polychrom Slight 11/[address] HEMATOLOGY Plt Morph Normal 11/[address] (11/14/17 6:20 PM) [facility] Brain shunt Brain shunt EXAM: SKULL 2 VIEWS 11/14 - [facility] series DX series DX - [facility] EXAM: CHEST 2 VIEWS This report was dictated by a Auto Service Instructor /Fellow. I have personally reviewed the [...] wo EXAM: CT BRAIN WITHOUT CONTRAST 11/14 [facility] contrast CT contrast CT /2017 - Medical This report was dictated by a Auto Service Instructor/Fellow. I have personally reviewed the images as Center well as the Resident's interpretation and agree with the findings. 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 TECHNIQUE: Axial CT images of the brain were obtained. Sagittal and coronal reformats. IV contrast: None. FINDINGS: An orphaned right occipital approach BONDERIZER OPERATOR shunt is present. Also present is a right frontal approach BONDERIZER OPERATOR shunt with tip in the left lateral [...] 1view EXAM: XR CHEST 1 VIEW 11/14 [facility] DX DX /2017 - Medical This report was dictated by a Auto Service Instructor/Fellow. I have personally reviewed the images [...] Source Temperature Oral (F) 97.2 F 11/19/2017 [facility] Systolic (mm Hg) 127 11/19/2017 [facility] Diastolic (mm Hg) 85 11/19/2017 [facility] Heart Rate 81 11/19/2017 [facility] Respitory Rate 18 11/19/2017 [facility] Heart Rate 90 11/19/2017 [facility] Systolic (mm Hg) 106 11/19/2017 [facility] Diastolic (mm Hg) 71 11/19/2017 [facility] Respitory Rate 18 11/19/2017 [facility] Temperature Oral (F) 98.1 F 11/19/2017 [facility] Respitory Rate 18 11/19/2017 [facility] Systolic (mm Hg) 168 11/19/2017 [facility] Diastolic (mm Hg) 107 11/19/2017 [facility] Heart Rate 87 11/19/2017 [facility] Temperature Oral (F) 98.1 F 11/19/2017 [facility] Weight 127.027 11/18/2017 [facility] Weight 127.027 11/17/2017 [facility] Weight 127.027 11/15/2017 [facility] BMI Calculated 48.16 11/15/2017 [facility] Height 162.56 cm 11/15/2017 [facility] Height 149.86 cm 11/14/2017 [facility] BMI Calculated 56.67 11/14/2017 [facility] Encounters Location Location Encounter Encounter Reason Attending ADM DC Status Source Details Type Number For Provider Date Date Visit [facility] [id number] [place] 11/14 11/19 [facility] Jason Vasquezh [facility] Procedures Procedure Code Date Perfomer Comments Source Cholecystectomy [id number] [facility] Shunt of cerebral [id number] [facility] ventricle to [facility] extracranial site Center
--- OUTSIDE RECORDS SUMMARY | 2018-04-01 11:18 | XMS REPORT ---
[...] hydrocephalus Problem Bipolar depression F31.30 Active Assessment ROVING MARKER (ventriculoperitoneal) shunt Z98.2 Active status Problem Depression [...] spina bifida with Q05.2 Active hydrocephalus Problem ROVING MARKER (ventriculoperitoneal) shunt Z98.2 Active status Problem Nicotine dependence F17.200 Active Medications Medication Code Code Instructions Start End Status Dosage System Date Date Collagenase [facility] [address]-30 250 UNIT/GM Active 1 application Externally to affected Once a day area Macrobid [facility] 59788894459 100 MG Orally Active 1 capsule every 12 hrs with food Tylenol with [facility] 30547163926 300-60 MG Active 1 tablet as Codeine #4 Orally every 6 needed hrs Citalopram [facility] 43734150588 10 MG Orally January Active 1 tablet Hydrobromide Once a day 2017 Pantoprazole [facility] 54306715906 40 MG Orally Active 1 tablet Sodium Once a day Seroquel [facility] 79316541228 25 MG Orally January Active 1 tablet Once a day at 16, bedtime 2017 Results No Known Results Summary Purpose eClinicalWorks Submission
--- OUTSIDE RECORDS SUMMARY | 2018-04-01 11:18 | XMS REPORT ---
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
--- OUTSIDE RECORDS SUMMARY | 2018-04-01 11:18 | XMS REPORT ---
:1985 Author Organization [employer] Care Team Providers Name Role Phone Gamble, [...] headache, R51 Active unspecified headache type Problem BUTCHER OR SMALLGOODS MAKER (ventriculoperitoneal) shunt Z98.2 Active status Medications No Known Medications Results No Known Results Summary Purpose [employer] Submission
--- OUTSIDE RECORDS SUMMARY | 2018-04-01 11:18 | XMS REPORT ---
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 COORDINATOR (ventriculoperitoneal) shunt Z98.2 Active status Medications Medication Code Code Instructions Start End Status Dosage System Date Date Tylenol with [facility] 33529475413 300-60 MG Active 1 tablet as Codeine #4 Orally every 6 needed hrs Macrobid [facility] 77389051328 100 MG Orally Active 1 capsule every 12 hrs with food Pantoprazole ND 92938468263 40 MG Orally Active 1 tablet Sodium Once a day Collagenase [facility] [address]-27 250 UNIT/GM Active 1 application Externally to affected Once a day area Results No Known Results Summary Purpose eClinicalWorks Submission
--- OUTSIDE RECORDS SUMMARY | 2018-04-01 11:19 | XMS REPORT ---
:1985 [facility] [address] Lee [address] [place] [address] Care Team Providers Name Role Phone CHADWICKJAQUELIN Unavailable Unavailable Problems This patient has no known problems. Allergies, Adverse Reactions, Alerts This patient has no known allergies or adverse reactions. Medications This patient has no known medications. Results Test Description Test Time Test Comments Text Results Atomic Results Result Comments BLOOD CULTURE 2016-12-28 16:22:00 Test Item Value Reference Range Comments CULTURE (BEAKER) (test iefn=2632) No growth in 5 days BLOOD [id number] 16:22:00 Test Item Value Reference Range Comments CULTURE (BEAKER) (test uium=6568) No growth in 5 days (MANUAL DIFFERENTIAL)2016-12-25 22:29:00 Test Item Value Reference Range Comments TOTAL COUNTED (BEAKER) (test mpqc=8208) WBC MORPHOLOGY (BEAKER) (test mukj=368) Normal PLT MORPHOLOGY (BEAKER) (test isnn=599) Normal RBC MORPHOLOGY (BEAKER) (test kxkk=436) Normal CBC W/PLT COUNT & AUTO [id number] 22:28:00 Test Item Value Reference Range Comments WHITE BLOOD CELL COUNT (BEAKER) (test yhui=286) 7.3 K/ L 4.0-10.0 RED BLOOD CELL COUNT (BEAKER) (test yadw=953) 5.09 M/ L 4.20-5.80 HEMOGLOBIN (BEAKER) (test ozsd=503) 13.0 GM/DL 13.0-16.8 HEMATOCRIT (BEAKER) (test hfbb=236) 42.3 % 40.0-50.0 MEAN CORPUSCULAR VOLUME (BEAKER) (test gncm=439) 83.0 fL 82.0-98.0 MEAN CORPUSCULAR HEMOGLOBIN (BEAKER) (test 25.6 pg 27.0-33.0 qall=541) MEAN CORPUSCULAR HEMOGLOBIN CONC (BEAKER) (test 30.8 GM/DL 32.0-36.0 deas=670) RED CELL DISTRIBUTION WIDTH (BEAKER) (test 18.0 % 10.3-14.2 yklg=154) PLATELET COUNT (BEAKER) (test lntz=190) 331 K/CU MM 150-430 MEAN PLATELET VOLUME (BEAKER) (test rpls=166) 8.5 fL 6.5-10.5 NUCLEATED RED BLOOD CELLS (BEAKER) (test 0 /100 WBC 0-0 tsro=459) NEUTROPHILS RELATIVE PERCENT (BEAKER) (test 65 % bxqf=481) LYMPHOCYTES RELATIVE PERCENT (BEAKER) (test 23 % hvka=794) MONOCYTES RELATIVE PERCENT (BEAKER) (test 8 % rfxn=967) EOSINOPHILS RELATIVE PERCENT (BEAKER) (test 3 % kbki=606) BASOPHILS RELATIVE PERCENT (BEAKER) (test 1 % giry=017) NEUTROPHILS ABSOLUTE COUNT (BEAKER) (test 4.75 K/ L 1.80-8.00 pqgq=231) LYMPHOCYTES ABSOLUTE COUNT (BEAKER) (test 1.68 K/ L 1.48-4.50 hoxh=652) MONOCYTES ABSOLUTE COUNT (BEAKER) (test 0.55 K/ L 0.00-1.30 aeis=004) EOSINOPHILS ABSOLUTE COUNT (BEAKER) (test 0.24 K/ L 0.00-0.50 iwvt=452) BASOPHILS ABSOLUTE COUNT (BEAKER) (test 0.05 K/ L 0.00-0.20 ftqr=732) 0.000.520.000.000.000.00BASI METABOLIC [id number] 11:11:00 Test Item Value Reference Range Comments SODIUM (BEAKER) (test 138 meq/L 136-145 zwqd=796) POTASSIUM (BEAKER) (test 4.0 meq/L 3.5-5.1 ugev=574) CHLORIDE (BEAKER) (test 108 meq/L 98-107 ifxx=278) CO2 (BEAKER) (test 23 meq/L 22-29 jtqo=800) BLOOD UREA NITROGEN 11 mg/dL 7-21 (BEAKER) (test rzic=122) CREATININE (BEAKER) (test 0.74 mg/dL 0.57-1.25 uhxg=408) GLUCOSE RANDOM (BEAKER) 124 mg/dL 70-105 (test xpcr=956) CALCIUM (BEAKER) (test 8.9 mg/dL 8.4-10.2 xlyd=288) EGFR (BEAKER) (test 150 mL/min/1.73 sq m ESTIMATED GFR IS NOT mbzw=4004) ACCURATE CREATININE CLEARANCE IN PREDICTING GLOMERULAR FILTRATION RATE. ESTIMATED GFR IS NOT APPLICABLE FOR DIALYSIS PATIENTS. URINE [id number] 09:56:00 Test Item Value Reference Range Comments CULTURE (BEAKER) (test nfqr=4513) <10,000 col/mL skin marilee COMPREHENSIVE METABOLIC [id number] 08:49:00 Test Item Value Reference Range Comments TOTAL PROTEIN (BEAKER) 7.3 gm/dL 6.0-8.3 (test ngca=687) ALBUMIN (BEAKER) (test 3.3 g/dL 3.5-5.0 duit=3743) ALKALINE PHOSPHATASE 89 U/L 40-150 (BEAKER) (test eloe=675) BILIRUBIN TOTAL (BEAKER) 1.4 mg/dL 0.2-1.2 (test nnpo=286) SODIUM (BEAKER) (test 137 meq/L 136-145 riyl=464) POTASSIUM (BEAKER) (test 3.7 meq/L 3.5-5.1 govq=521) CHLORIDE (BEAKER) (test 108 meq/L 98-107 uyem=394) CO2 (BEAKER) (test 17 meq/L 22-29 mnra=926) BLOOD UREA NITROGEN 12 mg/dL 7-21 (BEAKER) (test tnrb=947) CREATININE (BEAKER) (test 0.78 mg/dL 0.57-1.25 upxy=271) GLUCOSE RANDOM (BEAKER) 119 mg/dL 70-105 (test pcxp=448) CALCIUM (BEAKER) (test 8.6 mg/dL 8.4-10.2 mziv=430) AST (SGOT) (BEAKER) (test 13 U/L 5-34 iuks=005) ALT (SGPT) (BEAKER) (test 28 U/L 6-55 xmuv=779) EGFR (BEAKER) (test 141 mL/min/1.73 sq ESTIMATED GFR IS NOT gpni=9786) m ACCURATE CREATININE CLEARANCE IN PREDICTING GLOMERULAR FILTRATION RATE. ESTIMATED GFR IS NOT APPLICABLE FOR DIALYSIS PATIENTS. CBC W/PLT COUNT & AUTO [id number] 08:46:00 Test Item Value Reference Range Comments WHITE BLOOD CELL COUNT (BEAKER) (test xwqf=128) 9.4 K/ L 4.0-10.0 RED BLOOD CELL COUNT (BEAKER) (test fhdd=373) 4.79 M/ L 4.20-5.80 HEMOGLOBIN (BEAKER) (test daxa=881) 12.8 GM/DL 13.0-16.8 HEMATOCRIT (BEAKER) (test txzv=129) 40.0 % 40.0-50.0 MEAN CORPUSCULAR VOLUME (BEAKER) (test acfk=086) 83.4 fL 82.0-98.0 MEAN CORPUSCULAR HEMOGLOBIN (BEAKER) (test 26.7 pg 27.0-33.0 dsyo=013) MEAN CORPUSCULAR HEMOGLOBIN CONC (BEAKER) (test 32.0 GM/DL 32.0-36.0 uyfm=328) RED CELL DISTRIBUTION WIDTH (BEAKER) (test 18.2 % 10.3-14.2 euso=115) PLATELET COUNT (BEAKER) (test hfll=115) 313 K/CU MM 150-430 MEAN PLATELET VOLUME (BEAKER) (test qegx=245) 8.6 fL 6.5-10.5 NUCLEATED RED BLOOD CELLS (BEAKER) (test 0 /100 WBC 0-0 dyqb=291) NEUTROPHILS RELATIVE PERCENT (BEAKER) (test 70 % ckpd=361) LYMPHOCYTES RELATIVE PERCENT (BEAKER) (test 16 % bjip=718) MONOCYTES RELATIVE PERCENT (BEAKER) (test 12 % wpny=891) EOSINOPHILS RELATIVE PERCENT (BEAKER) (test 1 % qbtq=928) BASOPHILS RELATIVE PERCENT (BEAKER) (test 1 % deom=327) NEUTROPHILS ABSOLUTE COUNT (BEAKER) (test 6.54 K/ L 1.80-8.00 hbrw=214) LYMPHOCYTES ABSOLUTE COUNT (BEAKER) (test 1.50 K/ L 1.48-4.50 yngv=354) MONOCYTES ABSOLUTE COUNT (BEAKER) (test 1.13 K/ L 0.00-1.30 fgva=246) EOSINOPHILS ABSOLUTE COUNT (BEAKER) (test 0.13 K/ L 0.00-0.50 yaje=846) BASOPHILS ABSOLUTE COUNT (BEAKER) (test 0.06 K/ L 0.00-0.20 enhp=779) 0.00URINALYSIS W/ [id number] 20:36:00 Test Item Value Reference Range Comments COLOR (BEAKER) (test nzxo=557) Yellow CLARITY (BEAKER) (test xehp=215) Hazy SPECIFIC GRAVITY UA (BEAKER) (test wahl=325) 1.012 1.001-1.035 PH UA (BEAKER) (test uqpx=335) 5.5 5.0-8.0 PROTEIN UA (BEAKER) (test uxef=792) 100 mg/dL Negative GLUCOSE UA (BEAKER) (test maec=721) Negative Negative KETONES UA (BEAKER) (test fffk=377) Negative Negative BILIRUBIN UA (BEAKER) (test tudx=349) Negative Negative BLOOD UA (BEAKER) (test gfny=546) Moderate Negative NITRITE UA (BEAKER) (test inft=395) Negative Negative LEUKOCYTE ESTERASE UA (BEAKER) (test wcvc=897) Large Negative UROBILINOGEN UA (BEAKER) (test pzbl=908) 3.0 mg/dL 0.2-1.0 RBC UA (BEAKER) (test opeo=643) 19 /HPF WBC UA (BEAKER) (test agjv=733) 182 /HPF SOURCE(BEAKER) (test bszb=4074) BASIC METABOLIC [id number] 17:00:00 Test Item Value Reference Range Comments SODIUM (BEAKER) (test 140 meq/L 136-145 wxjd=280) POTASSIUM (BEAKER) (test 3.7 meq/L 3.5-5.1 rwwa=986) CHLORIDE (BEAKER) (test 112 meq/L 98-107 tfxe=893) CO2 (BEAKER) (test 17 meq/L 22-29 lswx=487) BLOOD UREA NITROGEN 23 mg/dL 7-21 (BEAKER) (test sbiy=531) CREATININE (BEAKER) (test 1.00 mg/dL 0.57-1.25 yvrw=157) GLUCOSE RANDOM (BEAKER) 102 mg/dL 70-105 (test ynsb=246) CALCIUM (BEAKER) (test 8.7 mg/dL 8.4-10.2 elpq=850) EGFR (BEAKER) (test 106 mL/min/1.73 sq m ESTIMATED GFR IS NOT wmqq=9421) ACCURATE CREATININE CLEARANCE IN PREDICTING GLOMERULAR FILTRATION RATE. ESTIMATED GFR IS NOT APPLICABLE FOR DIALYSIS PATIENTS. Specimen slightly ictericCBC W/PLT COUNT & AUTO [id number] 12:18 :00 Test Item Value Reference Range Comments WHITE BLOOD CELL COUNT (BEAKER) (test jnlk=793) 16.4 K/ L 4.0-10.0 RED BLOOD CELL COUNT (BEAKER) (test xhps=253) 5.22 M/ L 4.20-5.80 HEMOGLOBIN (BEAKER) (test ixmi=809) 14.4 GM/DL 13.0-16.8 HEMATOCRIT (BEAKER) (test ynjd=524) 42.9 % 40.0-50.0 MEAN CORPUSCULAR VOLUME (BEAKER) (test bwwh=923) 82.2 fL 82.0-98.0 MEAN CORPUSCULAR HEMOGLOBIN (BEAKER) (test 27.5 pg 27.0-33.0 ejtk=369) MEAN CORPUSCULAR HEMOGLOBIN CONC (BEAKER) (test 33.5 GM/DL 32.0-36.0 tdck=651) RED CELL DISTRIBUTION WIDTH (BEAKER) (test 16.2 % 10.3-14.2 avwa=627) PLATELET COUNT (BEAKER) (test buow=908) 329 K/CU MM 150-430 MEAN PLATELET VOLUME (BEAKER) (test ftli=549) 8.2 fL 6.5-10.5 NUCLEATED RED BLOOD CELLS (BEAKER) (test 0 /100 WBC 0-0 evnr=751) NEUTROPHILS RELATIVE PERCENT (BEAKER) (test 83 % qreo=024) LYMPHOCYTES RELATIVE PERCENT (BEAKER) (test 7 % dihq=007) MONOCYTES RELATIVE PERCENT (BEAKER) (test 9 % gnun=767) EOSINOPHILS RELATIVE PERCENT (BEAKER) (test 0 % tqxf=303) BASOPHILS RELATIVE PERCENT (BEAKER) (test 0 % xsdm=468) NEUTROPHILS ABSOLUTE COUNT (BEAKER) (test 1.62 K/ L 1.80-8.00 aeic=044) LYMPHOCYTES ABSOLUTE COUNT (BEAKER) (test 1.15 K/ L 1.48-4.50 wvri=448) MONOCYTES ABSOLUTE COUNT (BEAKER) (test 1.56 K/ L 0.00-1.30 hiyg=193) EOSINOPHILS ABSOLUTE COUNT (BEAKER) (test 0.01 K/ L 0.00-0.50 zixd=232) BASOPHILS ABSOLUTE COUNT (BEAKER) (test 0.02 K/ L 0.00-0.20 dixy=140) (MANUAL DIFFERENTIAL)2016-12-23 12:18:00 Test Item Value Reference Range Comments TOTAL COUNTED (BEAKER) (test chpl=1592) WBC MORPHOLOGY (BEAKER) (test vutm=207) Normal PLT MORPHOLOGY (BEAKER) (test juyw=785) Normal RBC MORPHOLOGY (BEAKER) (test uzpx=780) Normal
--- OUTSIDE RECORDS SUMMARY | 2018-04-01 11:19 | XMS REPORT ---
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 Problem Constipation K59.00 Active Assessment Ulcer of left foot, unspecified L97.529 Active ulcer stage Problem Paraplegia G82.20 Active Assessment 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 Z98.2 Active status Problem Nausea alone R11.0 Active Problem Fecal incontinence R15.9 Active Problem Incontinence of urine R32 Active Problem 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 Problem Mental disorder, not otherwise F99 Active specified Assessment Depression with anxiety F41.8 Active Assessment Bipolar depression F31.30 Active Problem Bipolar depression F31.30 Active Assessment Lumbar spina bifida with Q05.2 Active hydrocephalus Problem Blood tests for routine general Z00.00 Active physical examination Problem Depression with anxiety F41.8 Active Problem Nausea and vomiting, intractability R11.2 Active of vomiting not specified, unspecified vomiting type Problem Ulcer of left foot, unspecified L97.529 Active ulcer stage Problem Nonintractable episodic headache, R51 Active unspecified headache type Problem 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 Z98.2 Active status Problem Episodic tension-type headache, not G44.219 Active intractable Problem Lumbar spina bifida with Q05.2 Active hydrocephalus Problem Foot ulcer L97.509 Active Problem Nicotine dependence F17.200 Active Problem Dependence on wheelchair Z99.3 Active Medications Medication Code Code Instructions Start End Status Dosage System Date Date Macrobid [facility] 83310193801 100 MG Orally Active 1 capsule every 12 hrs with food Tylenol with [facility] 12349506655 300-60 MG Active 1 tablet as Codeine #4 Orally every 6 needed hrs Pantoprazole ND 02269514553 40 MG Orally Active 1 tablet Sodium Once a day Citalopram [facility] 79901051320 10 MG Orally Active 1 tablet Hydrobromide Once a day Collagenase [facility] [address]-17 250 UNIT/GM Active 1 application Externally to affected Once a day area Seroquel [facility] 55997206204 25 MG Orally Active 1 tablet Once a day at bedtime Results No Known Results Summary Purpose eClinicalWorks Submission
[2018-04-01] MEDS ORDERED: MEPERIDINE HCL 50 MG/ML AMP ONE ×2 (12:11→17:37)
[2018-04-01] MEDS ORDERED: NA CHLORIDE 0.9% 1,000 ML ONE (12:11)
[2018-04-01 13:35] LABS: Absolute Lymphocytes (CBC) 1.4 K/uL (0.7-4.9); Absolute Monocytes 0.8 K/uL (0.1-1.3); Absolute Neutrophil 7.2 K/uL (1.8-8.0); Basophils % 0.5 % (0-1.3); Eosinophils % 1.6 % (0-4.4); Hematocrit 44.3 % (39.6-49.0); Lymphocytes % 14.4 % (15.3-44.8); MCH 26.8 pg (27.0-35.0); MPV 8.5 fL (7.6-11.3); Monocytes % 8.6 % (3.3-12.3); RBC Red Blood Cell Count 5.53 M/uL (4.33-5.43)
[2018-04-01 13:41] LABS: BUN Blood Urea Nitrogen 14 mg/dL (7-18); Bicarbonate 28 mmol/L (21-32); Glucose Level 81 mg/dL (74-106); Potassium 5.2 mmol/L (3.5-5.1); Sodium Level 139 mmol/L (136-145)
--- NOTE | 2018-04-01 14:48 | RAD REPORT ---
EXAM DESCRIPTION: RAD - Foot Left 2 View - 04/01/2018 2:25 pm CLINICAL HISTORY: Foot pain, soft tissue swelling, possible osteomyelitis, multifocal soft tissue wo unds COMPARISON: March 05 FINDINGS: No fracture, dislocation or periosteal reaction. There is a splayed configuration of the t oes that matches the prior examination. There is pronounced extension at the ankle joint. It is presu med that the patient is not a weight-bearing patient. By history the patient has multiple soft tissue wounds. There are no clearly destructive changes in the bones of the foot to indicate a site of oste omyelitis. Patient has very pronounced soft tissue swelling around the foot, ankle and distal leg. No air or for eign body. The soft tissue pattern is not clearly different from comparison. IMPRESSION: No osteomyelitis or bone destructive process identifiable. Very pronounced soft tissue swelling of the foot, ankle and leg. No air, foreign body or significant interval change.
--- NOTE | 2018-04-01 14:50 | RAD REPORT ---
EXAM DESCRIPTION: RAD - Foot Right 2 View - 04/01/2018 2:25 pm CLINICAL HISTORY: Soft tissue swelling, multifocal soft tissue wounds, possible osteomyelitis COMPARISON: March 05 FINDINGS: No fracture, dislocation or periosteal reaction. There is a splayed configuration of the t oes due to the very pronounced soft tissue swelling. No erosive or destructive bone process identifia ble. There is laxity or widening of the joint spaces of the calcaneus and talus articulation with the navicular and cuboid bones. This pattern is stable. No grossly destructive bone process to indicate osteomyelitis. The very pronounced soft tissue swelling pattern around the foot, ankle and distal leg has not changed. No air or foreign body. IMPRESSION: No erosive or destructive bone process seen to localize a site of osteomyelitis. Very pronounced soft tissue swelling not grossly different from comparison.
[2018-04-01 16:12] LABS: Urine Bacteria 20-50 /HPF (NONE SEEN)
[2018-04-01 16:13] LABS: Urine Culture Reflex Order NOT NEEDED; Urine Mucus 2+ /HPF (NONE SEEN)
[2018-04-01 16:13] LABS: Urine Blood 1+ (NEG); Urine Glucose NEGATIVE (NEG); Urine Protein NEGATIVE (NEG)
--- NOTE | 2018-04-01 17:08 | EDPHYS ---
Physician Documentation [facility] Name: Roland Feldman Jr Age: 32 yrs Sex: Male : 1985 Arrival Date: 04/01/2018 Time: 11:16 Bed 6 Private MD: ED Physician Rah Dominguez HPI: 04/01 13:35 This 32 yrs old Black Male presents to ER via EMS with complaints of Foot Pain. rn 13:35 The patient presents with pain. The complaints affect the right foot. Onset: The rn symptoms/episode began/occurred at an unknown time. Modifying factors: The symptoms are alleviated by nothing, the symptoms are aggravated by movement. Severity of symptoms: At their worst the symptoms were moderate, in the emergency department the symptoms are unchanged. The patient has experienced similar episodes in the past. Reports called 911 for foot pain, right side, that shoots up right side of his body, recently admitted here for sepsis, had PICC line placed, 2 weeks of meropenem, and recently stopped course a few days ago, reports ever since left the hospital this last admission he has been experiencing intermittent pains, reports has appt with wound care in 2 days, hasn't seen them for 2 weeks. No fever. Also reports urine is cloudy again. . Historical: - Allergies: 11:23 Amoxicillin; ss 11:23 Bactrim; ss 11:23 Ciprofloxacin; ss 11:23 CLAVULANIC ACID; ss 11:23 Doxycycline; ss 11:23 Levofloxacin; ss 11:23 Morphine; ss 11:23 Toradol; ss 11:23 Vancomycin; ss 11:23 Zofran; ss 19:08 TRIMETHOPRIM; bp - Home Meds: 19:08 metoprolol tartrate 25 mg Oral tab 1 tab 2 times per day [Active]; pantoprazole 40 mg bp Oral TbEC 1 tab once daily [Active]; ProMod Protein Oral liqd 30 mL twice a day [Active]; Vitamin C 500 mg Oral tab twice a day [Active]; zinc sulfate 220 (50) mg Oral cap daily [Active]; - PMHx: 11:23 Asthma; Cerebral Palsy; cluster headaches; decubitus ulcers on feet; GERD; ss Hydrocephalus; Hypertension; spina bifida; - Immunization history:: Adult Immunizations up to date. - Social history:: Smoking status: Patient uses tobacco products, smokes one-half pack cigarettes per day. - Ebola Screening: : Patient denies exposure to infectious person Patient denies travel to an Ebola-affected area in the 21 days before illness onset. - Family history:: not pertinent. - Hospitalizations: : No recent hospitalization is reported. ROS: 13:35 Constitutional: Negative for fever, chills, and weight loss, Eyes: Negative for injury, rn pain, redness, and discharge, Neck: Negative for injury, pain, and swelling, Cardiovascular: Negative for chest pain, palpitations, and edema, Respiratory: Negative for shortness of breath, cough, wheezing, and pleuritic chest pain, Abdomen/GI: Negative for abdominal pain, nausea, vomiting, diarrhea, and constipation, MS/Extremity: Negative for injury Skin: + chronic wounds to bilateral lower ext Neuro: Negative for headache, and seizure. Exam: 13:35 Constitutional: This is a well developed, well nourished patient who is awake, alert, rn and in no acute distress. Head/Face: Normocephalic, atraumatic. Eyes: Pupils equal round and reactive to light, extra-ocular motions intact. Lids and lashes normal. Conjunctiva and sclera are non-icteric and not injected. Cornea within normal limits. Periorbital areas with no swelling, redness, or edema. Cardiovascular: Tachycardic, regular Respiratory: No increased work of breathing, no retractions or nasal flaring. MS/ Extremity: Pulses equal, no cyanosis. + moderate chronic swelling of bilateral feet with inward rotation, + bilateral pressure wounds with beefy red tissue surrounding central fibrinous caps, no fluctuance, + clear drainage, no crepitus, no gangrene. Vital Signs: 11:23 BP 140 / 89; Pulse 104; Resp 18; Temp 98.8(O); Pulse Ox 99% on R/A; Weight 131.54 kg; ss Pain 9/10; 12:30 BP 136 / 90; Pulse 91; Resp 17; Pulse Ox 100% on R/A; hb 13:30 BP 129 / 92; Pulse 100; Resp 16; Pulse Ox 100% on R/A; hb 14:00 BP 126 / 91; Pulse 93; Resp 14; Pulse Ox 100% on R/A; hb 15:00 BP 111 / 87; Pulse 100; Resp 15; Pulse Ox 100% on R/A; hb 17:00 BP 128 / 90; Pulse 91; Resp 16; Pulse Ox 100% on R/A; hb 18:15 BP 131 / 86; Pulse 72; Resp 15; Pulse Ox 100% on R/A; hb 19:00 BP 134 / 87; Pulse 99; Resp 14; Pulse Ox 97% ; bp MDM: 11:17 Patient medically screened. rn 17:06 Differential diagnosis: cellulitis, UTI. 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 Counseling: I had a detailed discussion with the patient and/or guardian regarding: the historical points, exam findings, and any diagnostic results supporting the discharge/admit diagnosis, lab results, radiology results, the need for further work-up and treatment in the hospital. Response to treatment: the patient's symptoms have mildly improved after treatment, and as a result, I will admit patient. Admission orders: after a detailed discussion of the patient's condition and case, the admit orders are written by me. ED course: Pt with persistent pain, wounds look worse than last time, + persistent UTI with very resistant previous cultures, will admit for further care to Dr. Gurrola. . 04/01 11:46 Order name: CBC with Diff; Complete Time: 14:03 rn 04/01 11:46 Order name: Basic Metabolic Panel; Complete Time: 14:03 rn 04/01 11:46 Order name: Urine Culture 04/01 11:46 Order name: Urine Microscopic Only; Complete Time: 16:24 rn 04/01 11:46 Order name: Procalcitonin; Complete Time: 17:14 rn 04/01 11:46 Order name: Blood Culture Adult (2) rn 04/01 15:57 Order name: Urine Dipstick--Ancillary (enter results); Complete Time: 16:24 bd 04/01 17:51 Order name: Potassium [facility] 04/01 17:51 Order name: Urinalysis [facility] 04/01 17:51 Order name: Basic Metabolic Panel [facility] 04/01 17:51 Order name: Basic Metabolic Panel [facility] 04/01 17:51 Order name: Basic Metabolic Panel [facility] 04/01 17:51 Order name: Basic Metabolic Panel [facility] 04/01 17:51 Order name: CBC with Automated Diff [facility] 04/01 11:47 Order name: XRAY Foot RIGHT 2 View; Complete Time: 14:59 rn 04/01 11:47 Order name: XRAY Foot LEFT 2 View; Complete Time: 14:59 rn 04/01 16:54 Order name: Diet Regular; Complete Time: 16:54 hb 04/01 17:51 Order name: CONS Physician Consult EDAZ 04/01 17:51 Order name: Heart Healthy EDMS 04/01 17:51 Order name: CBC with Automated Diff EDMS 04/01 17:51 Order name: CBC with Automated Diff EDMS 04/01 17:51 Order name: CBC with Automated Diff EDMS 04/01 17:51 Order name: Magnesium EDMS 04/01 17:51 Order name: Magnesium EDMS 04/01 17:51 Order name: Magnesium EDMS 04/01 17:51 Order name: Magnesium EDMS 04/01 11:46 Order name: Urine Dipstick-Ancillary (obtain specimen); Complete Time: 18:14 rn 04/01 17:51 Order name: NPO EDAZ Administered Medications: 13:02 Drug: Demerol 50 mg Route: IM; Site: right deltoid; hb 13:45 Follow up: Response: No adverse reaction; Pain is decreased hb 13:32 Not Given (Physician Discretion): Demerol 50 mg IVP once hb 17:16 Drug: Demerol 25 mg Route: IM; Site: right deltoid; hb 18:14 Follow up: Response: No adverse reaction; Pain is decreased hb 18:28 Not Given (Other Intervention Used): NS 0.9% 500 ml IV at bolus once hb Disposition: 04/01/18 17:08 Hospitalization ordered by Jerry Gurrola for Observation. Preliminary diagnosis are Urinary tract infection, site not specified, Non-pressure chronic ulcer of other part of left foot, Non-pressure chronic ulcer of other part of right foot. - Bed requested for Telemetry/MedSurg (observation). - Status is Observation. ak1 - Condition is Stable. - Problem is an ongoing problem. - Symptoms are unchanged. UTI on Admission? Yes Signatures: Dispatcher [facility] Shruthi Becerra RN RN Rah Dominguez MD MD rn Smirch, Shelby, RN RN Lien Doss RN RN ak1 Brittany Loya RN RN hb Holland Hays, RN RN bp Corrections: (The following items were deleted from the chart) 18:24 17:08 Hospitalization Ordered by Jerry Gurrola DO for Observation. Preliminary dw diagnosis is Urinary tract infection, site not specified; Non-pressure chronic ulcer of other part of left foot; Non-pressure chronic ulcer of other part of right foot. Bed requested for Telemetry/MedSurg (observation). Status is Observation. Condition is Stable. Problem is an ongoing problem. Symptoms are unchanged. UTI on Admission? Yes. rn 19:03 11:46 IV Saline Lock ordered. rn silvia 20:00 18:24 04/01/2018 17:08 Hospitalization Ordered by Jerry Gurrola DO for Observation. ak1 Preliminary diagnosis is Urinary tract infection, site not specified; Non-pressure chronic ulcer of other part of left foot; Non-pressure chronic ulcer of other part of right foot. Bed requested for Telemetry/MedSurg (observation). Status is Observation. Condition is Stable. Problem is an ongoing problem. Symptoms are unchanged. UTI on Admission? Yes. dw
--- NOTE | 2018-04-01 17:08 | ER ---
Nurse's Notes [facility] Name: Roland Feldman Jr Age: 32 yrs Sex: Male : 1985 Arrival Date: 04/01/2018 Time: 11:16 Bed 6 Private MD: Diagnosis: Urinary tract infection, site not specified;Non-pressure chronic ulcer of other part of left foot;Non-pressure chronic ulcer of other part of right foot Presentation: 04/01 11:19 Presenting complaint: EMS states: R foot pain for days that radiates up to chest. Pt ss was discharged from hospital recently for sepsis. Pt has chronic wounds on bilateral feet and states that the pain since discharge has not improved, but gotten worse. Transition of care: patient was not received from another setting of care. Onset of symptoms is unknown. Risk Assessment: Do you want to hurt yourself or someone else? Patient reports no desire to harm self or others. Initial Sepsis Screen: Does the patient meet any 2 criteria? HR > 90 bpm. Does the patient have a suspected source of infection? Yes: Skin breakdown/wound. Care prior to arrival: None. 11:19 Method Of Arrival: EMS: [facility] ss 11:19 Acuity: YUKI 3 ss Triage Assessment: 19:06 General: Appears in no apparent distress. comfortable, obese, Behavior is calm, bp cooperative, appropriate for age. Pain: Complains of pain in right foot and left foot. Historical: - Allergies: 11:23 Amoxicillin; ss 11:23 Bactrim; ss 11:23 Ciprofloxacin; ss 11:23 CLAVULANIC ACID; ss 11:23 Doxycycline; ss 11:23 Levofloxacin; ss 11:23 Morphine; ss 11:23 Toradol; ss 11:23 Vancomycin; ss 11:23 Zofran; ss 19:08 TRIMETHOPRIM; bp - Home Meds: 19:08 metoprolol tartrate 25 mg Oral tab 1 tab 2 times per day [Active]; pantoprazole 40 mg bp Oral TbEC 1 tab once daily [Active]; ProMod Protein Oral liqd 30 mL twice a day [Active]; Vitamin C 500 mg Oral tab twice a day [Active]; zinc sulfate 220 (50) mg Oral cap daily [Active]; - PMHx: 11:23 Asthma; Cerebral Palsy; cluster headaches; decubitus ulcers on feet; GERD; ss Hydrocephalus; Hypertension; spina bifida; - Immunization history:: Adult Immunizations up to date. - Social history:: Smoking status: Patient uses tobacco products, smokes one-half pack cigarettes per day. - Ebola Screening: : Patient denies exposure to infectious person Patient denies travel to an Ebola-affected area in the 21 days before illness onset. - Family history:: not pertinent. - Hospitalizations: : No recent hospitalization is reported. Screenin:18 Abuse screen: Denies threats or abuse. Denies injuries from another. Nutritional hb screening: No deficits noted. Tuberculosis screening: No symptoms or risk factors identified. Fall Risk Total Smith Fall Scale indicates High Risk Score (45 or more points). Fall prevention measures have been instituted. Side Rails Up X 2 Frequent Obs/Assessments Occuring As available patient and family educated on Fall Prevention Program and Strategies. Assessment: 12:17 Reassessment: Unable to establish PIV access, Dr. Dominguez notified. hb 13:00 Reassessment: Patient appears in no apparent distress at this time. Patient and/or hb family updated on plan of care and expected duration. Pain level reassessed. Patient is alert, oriented x 3, equal unlabored respirations, skin warm/dry/pink. 14:00 Reassessment: Patient appears in no apparent distress at this time. Patient and/or hb family updated on plan of care and expected duration. Pain level reassessed. Patient is alert, oriented x 3, equal unlabored respirations, skin warm/dry/pink. 15:00 Reassessment: Patient appears in no apparent distress at this time. No changes from hb previously documented assessment. Patient and/or family updated on plan of care and expected duration. Pain level reassessed. Patient is alert, oriented x 3, equal unlabored respirations, skin warm/dry/pink. 16:00 Reassessment: Patient appears in no apparent distress at this time. No changes from hb previously documented assessment. Patient and/or family updated on plan of care and expected duration. Pain level reassessed. Patient is alert, oriented x 3, equal unlabored respirations, skin warm/dry/pink. 17:00 Reassessment: Patient appears in no apparent distress at this time. No changes from hb previously documented assessment. Patient and/or family updated on plan of care and expected duration. Pain level reassessed. Patient is alert, oriented x 3, equal unlabored respirations, skin warm/dry/pink. Admission ordered, awaiting room assignment at this time. 17:43 Reassessment: Mother Lamar [phone]. hb 18:15 Reassessment: Patient appears in no apparent distress at this time. No changes from hb previously documented assessment. Patient and/or family updated on plan of care and expected duration. Pain level reassessed. Patient is alert, oriented x 3, equal unlabored respirations, skin warm/dry/pink. Vital Signs: 11:23 BP 140 / 89; Pulse 104; Resp 18; Temp 98.8(O); Pulse Ox 99% on R/A; Weight 131.54 kg; ss Pain 9/10; 12:30 BP 136 / 90; Pulse 91; Resp 17; Pulse Ox 100% on R/A; hb 13:30 BP 129 / 92; Pulse 100; Resp 16; Pulse Ox 100% on R/A; hb 14:00 BP 126 / 91; Pulse 93; Resp 14; Pulse Ox 100% on R/A; hb 15:00 BP 111 / 87; Pulse 100; Resp 15; Pulse Ox 100% on R/A; hb 17:00 BP 128 / 90; Pulse 91; Resp 16; Pulse Ox 100% on R/A; hb 18:15 BP 131 / 86; Pulse 72; Resp 15; Pulse Ox 100% on R/A; hb 19:00 BP 134 / 87; Pulse 99; Resp 14; Pulse Ox 97% ; bp ED Course: 11:16 Patient arrived in ED. sg 11:17 Rah Dominguez MD is Attending Physician. rn 11:22 Triage completed. ss 11:23 Arm band placed on right wrist. ss 12:00 Patient has correct armband on for positive identification. Placed in gown. Bed in low hb position. Call light in reach. Side rails up X2. 12:10 Missed attempt(s): 20 gauge in right antecubital area. Bleeding controlled, band aid hb applied, catheter tip intact. 12:15 Missed attempt(s): 20 gauge in right antecubital area. Bleeding controlled, band aid hb applied, catheter tip intact. 12:18 Brittany Loya, RN is Primary Nurse. hb 13:21 Missed attempt(s): 24 gauge in left forearm. Bleeding controlled, band aid applied, ss catheter tip intact. 13:21 Missed attempt(s): 22 gauge in left forearm. ss 14:26 XRAY Foot RIGHT 2 View In Process Unspecified. EDMS 14:26 XRAY Foot LEFT 2 View In Process Unspecified. EDMS 17:07 Jerry Gurrola DO is Hospitalizing Provider. rn 19:06 No provider procedures requiring assistance completed. Patient did not have IV access bp during this emergency room visit. Administered Medications: 13:02 Drug: Demerol 50 mg Route: IM; Site: right deltoid; hb 13:45 Follow up: Response: No adverse reaction; Pain is decreased hb 13:32 Not Given (Physician Discretion): Demerol 50 mg IVP once hb 17:16 Drug: Demerol 25 mg Route: IM; Site: right deltoid; hb 18:14 Follow up: Response: No adverse reaction; Pain is decreased hb 18:28 Not Given (Other Intervention Used): NS 0.9% 500 ml IV at bolus once hb Outcome: 17:08 Decision to Hospitalize by Provider. rn 19:35 Admitted to Med/surg accompanied by tech, via stretcher, room 206, with chart, Report bp called to FRIEDA DISLA 19:35 Condition: stable 19:35 Instructed on the need for admit. 20:00 Patient left the ED. ak1 Signatures: Dispatcher [employer] EDKiran Albarado, RN Rah Pearson MD MD rn Smirch, Shelby, RN RN Lien Doss RN RN ak1 Brittany Loya RN RN hb Peltier, Brian, RN RN bp Corrections: (The following items were deleted from the chart) 12:44 12:26 Reassessment: Unable to establish PIV access, Dr. Dominguez notified. hb hb
[2018-04-01] MEDS ORDERED: PHENAZOPYRIDINE 100MG TAB PO PRN (17:43)
[2018-04-01] MEDS ORDERED: ACETAMINOPHEN 500 MG TAB PO PRN (17:43)
[2018-04-01] MEDS ORDERED: PROMETHAZINE 25 MG TABLET PO PRN (17:43)
[2018-04-01] MEDS ORDERED: ONDANSETRON 4 MG/2 ML VIAL IV PRN (17:43)
[2018-04-01] MEDS ORDERED: HYDROCODONE/APAP 10/325 TAB PO PRN (17:43)
--- NOTE | 2018-04-01 17:55 | P.HP ---
Certification for Inpatient Patient admitted to: Observation With expected LOS: <2 Midnights Patient will require the following post-hospital care: None Practitioner: I am a practitioner with admitting privileges, knowledge of patient current condition, hospital course, and medical plan of care. Services: Services provided to patient in accordance with Admission requirements found in Title 42 Section 412.3 of the Code of Federal Regulations Patient History Date of Service: 04/01/18 Primary Care Provider: Dr. Gamble; Surgery-Dr. Hartmann Reason for admission: Right lower extremity ulcer pain History of Present Illness: 32-year-old male with multiple chronic wounds to the lower extremity. Patient also has a history of recurrent UTI. Patient was recently hospitalized for UTI a requiring IV antibiotic therapy. Patient came into the emergency room complaining of pain to the right lower extremity. He has a large ulcer to the wound. He was to follow up with wound care over the past 2 weeks but has not. He was post to follow up with him again this week. Patient came to the ER for evaluation. In the ER patient evaluated. White count normal at 9.6, sodium 139, potassium 4.2. Urinalysis showed some leukocytes. Pain to the right lower extremity noted. Patient was admitted for observation. When I saw the patient the ER, he appeared stable. No significant erythema noted. Ulcer noted to the right lower extremity. Pain noted with palpation. Allergies levofloxacin [From Levaquin] Allergy (Intermediate, Verified 03/06/18 00:05) Hives morphine Allergy (Intermediate, Verified 03/06/18 00:05) Hives sulfamethoxazole [From Bactrim] Allergy (Intermediate, Verified 03/06/18 00:05) Hives ketorolac tromethamine [From Toradol] Allergy (Verified 03/06/18 00:05) Nausea/Vomiting vancomycin Allergy (Verified 03/06/18 00:05) Hives ondansetron [From Zofran (as hydrochloride)] Adverse Reaction (Mild, Verified 00:05) Nausea/Vomiting amoxicillin [From Augmentin] Adverse Reaction (Verified 03/06/18 00:05) Hives/Rash ciprofloxacin Adverse Reaction (Verified 03/06/18 00:05) Nausea/Vomiting doxycycline Adverse Reaction (Verified 10/04/17 04:43) Nausea/Vomiting sesame seed Adverse Reaction (Verified 03/05/18 23:56) diarrhea pop corn Adverse Reaction (Uncoded 03/05/18 23:56) diarrhea Home medications list reviewed: Yes Home Medications: Oxycodone HCl [Roxicodone] 5 mg PO QID PRN 03/06/18 Collagenase [Santyl Ointment*] 1 appl TOP DAILY #1 tube 03/12/18 Edwin [Edwin*] 1 pkt PO BID powd.pack 03/12/18 Meropenem [Merrem 1 GM/100 ML NS IVPB] 1 gm IV Q8HR #1 bag 03/12/18 - Past Medical/Surgical History Diabetic: No -: Spina bifida -: History of osteomyelitis -: History of recurrent UTIs with sepsis -: Hydrocephalus -: 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 He has no children. He is disabled. - Family History Father -: Hypertension Mother -: Hypertension - Social History Smoking Status: Unknown if ever smoked Alcohol use: Yes CD- Drugs: No Caffeine use: Yes Place of Residence: Home Review of Systems General: Weakness, Malaise Eyes: Unremarkable ENT: Unremarkable Respiratory: Unremarkable Cardiovascular: Unremarkable Gastrointestinal: Unremarkable Genitourinary: As per HPI Musculoskeletal: As per HPI Integumentary: As per HPI Neurological: Unremarkable Lymphatics: Unremarkable Physical Examination - Physical Exam General: Alert, In no apparent distress, Oriented x3, Cooperative HEENT: Atraumatic Neck: Supple Respiratory: Clear to auscultation bilaterally, Normal air movement Cardiovascular: Normal pulses, Regular rate/rhythm Gastrointestinal: Normal bowel sounds, Soft and benign, Non-distended, No tenderness, No masses, No rebound, No guarding Musculoskeletal: Other (Large ulcer noted to the right foot. Patient with history of spina bifida. Deformities noted to the lower extremity. Pain to the right foot ulcer noted.) Neurological: Normal speech, Normal tone, Other (Patient is wheelchair-bound.) - Studies Laboratory Data (last 24 hrs) 04/01/18 13:15: Sodium 139, Potassium 5.2 H, BUN 14, Creatinine 0.80, Glucose 81 04/01/18 13:15: WBC 9.6, Hgb 14.8, Hct 44.3, Plt Count 405 Assessment and Plan - Plan Impression: Right lower extremity pain with chronic ulcer to the right foot suspect cellulitis History of recurrent UTI, recent UTI requiring IV antibiotic therapy Patient with history of spina bifida. Chronic pain Neuropathy Hyperkalemia Plan: Will start IV meropenem. Blood cultures obtained. Including urine culture. Will have surgery evaluate patient as the patient was to be seen by a wound care. Patient may require debridement. Will discuss further with surgery tomorrow. If stable patient may be able to be discharged home if okay with surgery. Will continue with his chronic pain medication. Will limit IV pain medication. Will recheck potassium level. Discharge Plan: Home Plan to discharge in: 48 Hours - Advance Directives Does patient have a Living Will: No Does patient have a Durable POA for Healthcare: No - Code Status/Comfort Care Code Status Assessed: Yes (Patient full code.) Time Spent Managing Pts Care (In Minutes): 55
[2018-04-01] MEDS: ENOXAPARIN 40 MG/0.4 ML SQ SCH (21:45)
[2018-04-01] MEDS: PANTOPRAZOLE 40MG TABLET PO SCH (21:46)
[2018-04-01] MEDS: GABAPENTIN 300 MG CAP PO SCH (21:47)
[2018-04-01] MEDS: OXYBUTYNIN ER 5 MG TAB PO SCH (21:47)
[2018-04-01] MEDS: LIDOCAINE 5% PATCH TOP SCH (21:47)
[2018-04-01] MEDS ORDERED: LIDOCAINE 1% MPF 5 ML VIAL ONE (23:05)
[2018-04-02] MEDS ORDERED: Meropenem 1000 MG/VIAL IV SCH (01:00)
[2018-04-02] MEDS: Meropenem 1,000 MG in NA CHLORIDE 0.9% 100 ML IV SCH ×2 (01:00→09:39)
[2018-04-02] MEDS ORDERED: Meropenem 1 GM/100 ML BAG ONE (01:44)
[2018-04-02] MEDS: NA CHLORIDE 0.9% 1,000 ML IV SCH ×3 (01:48→12:40)
[2018-04-02 02:09] VITALS: BMI 59.3
[2018-04-02] MEDS ORDERED: OXYCODONE HCL 5 MG TAB PO PRN (02:50)
[2018-04-02 05:21] LABS: Absolute Lymphocytes (CBC) 1.9 K/uL (0.7-4.9); Absolute Monocytes 0.8 K/uL (0.1-1.3); Absolute Neutrophil 5.1 K/uL (1.8-8.0); Basophils % 1.3 % (0-1.3); Eosinophils % 2.8 % (0-4.4); Lymphocytes % 23.4 % (15.3-44.8); MCH 27.1 pg (27.0-35.0); MCV 80.8 fL (80-100); MPV 8.6 fL (7.6-11.3); RBC Red Blood Cell Count 4.83 M/uL (4.33-5.43)
[2018-04-02 05:47] LABS: BUN Blood Urea Nitrogen 13 mg/dL (7-18); Bicarbonate 27 mmol/L (21-32); Glucose Level 86 mg/dL (74-106); Magnesium 2.1 mg/dL (1.8-2.4); Potassium 4.3 mmol/L (3.5-5.1); Sodium Level 139 mmol/L (136-145)
[2018-04-02] MEDS: GABAPENTIN 300 MG CAP PO SCH ×2 (09:00→13:54)
[2018-04-02] MEDS: LIDOCAINE 5% PATCH TOP SCH (09:00)
[2018-04-02] MEDS: OXYBUTYNIN ER 5 MG TAB PO SCH (09:39)
[2018-04-02] MEDS: ENOXAPARIN 40 MG/0.4 ML SQ SCH (09:39)
[2018-04-02] MEDS: PANTOPRAZOLE 40MG TABLET PO SCH (09:39)
--- NOTE | 2018-04-02 10:37 | P.DS ---
Admission Date: 04/01/18 Discharge Date: 04/02/18 Primary Care Provider: Dr. Gamble; Surgery-Dr. Hartmann Disposition: ROUTINE DISCHARGE Discharge Condition: GOOD Reason for Admission: Right lower extremity ulcer pain Consultations: Surgery-Dr. Hartmann Procedures: Medical Problem List: Right foot pain with Chronic ulcer to the forefoot and anterior ankle region Multiple Chronic ulcers to the Left thigh and Left heel as well History of Recurrent, complicated UTI with chronic indwelling catheter. Patient is asymptomatic with bacteriuria. Hx of Spina bifida Chronic pain with Neuropathy Brief History of Present Illness: 32-year-old male with multiple chronic wounds to the lower extremity. Patient also has a history of recurrent UTI. Patient was recently hospitalized for UTI a requiring IV antibiotic therapy. Patient came into the emergency room complaining of pain to the right lower extremity. He has a large ulcer to the wound. He was to follow up with wound care over the past 2 weeks but has not. He was post to follow up with him again this week. Patient came to the ER for evaluation. In the ER patient evaluated. White count normal at 9.6, sodium 139, potassium 4.2. Urinalysis showed some leukocytes. Pain to the right lower extremity noted. Patient was admitted for observation. When I saw the patient the ER, he appeared stable. No significant erythema noted. Ulcer noted to the right lower extremity. Pain noted with palpation. Hospital Course: Patient did well during the course of his stay. Pain to the right foot improved. Swelling also improved. Patient has Chronic ulcer to the forefoot and anterior ankle region. He also has multiple chronic ulcers to the left upper back thigh and left heel. Procalcitonin and WBC remains normal. I was able to discuss the case at length with Wound Care team while he had dressing changes. From the Care team perspective, the wounds do not appear significantly abnormal. Recommendation is to continue with Wound care and strict follow up with [facility]. They will obtain wound culture and follow up the results next week to consider antibiotics. He will need to follow up at the [facility] as directed to continue his care. Patient has History of Recurrent, complicated UTI with chronic indwelling catheter. Patient is asymptomatic with bacteriuria. WBC is within normal range. No complaints noted. He was recently hospitalized and treated with IV Merrem. No need for Outpatient IV antibiotics at this time. He will continue with chronic indwelling catheter care. UTI prevention will need to be enforced. Patient with Hx of Spina bifida and Chronic pain with Neuropathy. Patient will continue with his current meds. He is not to deviate with his pain medication. He will need to follow up with his PCP to further monitor and adjust. Vital Signs/Physical Exam: Temp Pulse Resp BP Pulse Ox 97.9 F 82 20 109/59 L 94 04/02/18 04:00 04/02/18 04:00 04/02/18 04:00 04/02/18 04:00 04/02/18 04:00 General: Alert, In no apparent distress, Oriented x3, Cooperative HEENT: Atraumatic Neck: Supple Respiratory: Clear to auscultation bilaterally, Normal air movement Cardiovascular: Normal pulses, Regular rate/rhythm Gastrointestinal: Normal bowel sounds, Soft and benign, Non-distended Integumentary: Other (Chronic ulcer to the right foot along the forefoot and ankle region anteriorly. No edema or erythema noted. ) Laboratory Data at Discharge: WBC 8.1 K/uL (4.3-10.9) D 04/02/18 04:46 Hgb 13.1 g/dL (13.6-17.9) L 04/02/18 04:46 Hct 39.0 % (39.6-49.0) L 04/02/18 04:46 Plt Count 390 K/uL (152-406) 04/02/18 04:46 Sodium 139 mmol/L (136-145) 04/02/18 04:46 Potassium 4.3 mmol/L (3.5-5.1) 04/02/18 04:46 BUN 13 mg/dL (7-18) 04/02/18 04:46 Creatinine 0.60 mg/dL (0.55-1.3) 04/02/18 04:46 Glucose 86 mg/dL (74-106) 04/02/18 04:46 Magnesium 2.1 mg/dL (1.8-2.4) 04/02/18 04:46 Home Medications: Oxycodone HCl [Roxicodone] 5 mg PO QID PRN 03/06/18 Patient Discharge Instructions: 1. Patient will need to follow up with his PCP in one week to follow up this hospitalization. 2. Patient did well during the course of his stay. Pain, erythema, swelling to the right foot improved. Patient has Chronic ulcer to the dorsal aspect of forefoot and anterior ankle region. He also has multiple chronic ulcers to the left upper back thigh and left heel. Procalcitonin and WBC remains normal. Case discussed with Wound Care team while he had dressing changes. From the Wound Care team perspective, the wounds do not appear significantly abnormal. Recommendation is to continue with Wound care and strict follow up with [facility]. They will obtain wound culture and follow up the results next week to consider antibiotics. He will need to follow up at the [facility] as directed to continue his care. 3. Patient has History of Recurrent, complicated UTI with chronic indwelling catheter. Patient is asymptomatic with bacteriuria. WBC is within normal range. No complaints noted. He was recently hospitalized and treated with IV Merrem. No need for Outpatient IV antibiotics at this time. He will continue with chronic indwelling catheter care. UTI prevention will need to be enforced. 4. Patient with Hx of Spina bifida and Chronic pain with Neuropathy. Patient will continue with his current meds. He is not to deviate with his pain medication. He will need to follow up with his PCP to further monitor and adjust. Diet: Regular Activity: Fall precautions Time spent managing pt's care (in minutes): 55
[2018-04-02 14:58] VITALS: O2SAT 95
[2018-04-02 17:35] VITALS: BP 129/89; TEMP 97.1
== END 2018-04-02 17:40 | disposition home health service (06) ==
LOC: ER 11:14 → ERHOLD 17:44 → 2ND 19:04
PROVIDERS: ADMIT Family Medicine; ATTEND Family Medicine
DX: L97.419 Non-pressure chronic ulcer of right heel and midfoot with unspecified severity (principal); L97.129 Non-pressure chronic ulcer of left thigh with unspecified severity; L97.429 Non-pressure chronic ulcer of left heel and midfoot with unspecified severity; M79.671 Pain in right foot; Q05.9 Spina bifida, unspecified; G89.29 Other chronic pain; E87.5 Hyperkalemia; G62.9 Polyneuropathy, unspecified; Z87.440 Personal history of urinary (tract) infections; Z88.0 Allergy status to penicillin; Z88.2 Allergy status to sulfonamides; Z99.3 Dependence on wheelchair
CPT/HCPCS: 36415; 80048; 81003; 81015; 83735; 84132; 84145; 85025; 87040; 87070; 87077; 87086; 87088; 87186; 87205; 87493; 96372; 99285; G0378; J1650; J2175; J2185; J7030

== ENCOUNTER 2018-04-24 11:09 | Emergency (ER) | payer OTHER ==
--- OUTSIDE RECORDS SUMMARY | 2018-04-24 11:11 | XMS REPORT | Clinical Summary ---
:1985 Author Organization [facility] Address [address] [place] [address] Phone Care Team Providers Name Role Phone [...] Not on file Results Not on fileafter 04/23/2017
--- OUTSIDE RECORDS SUMMARY | 2018-04-24 11:13 | XMS REPORT | Continuity of Care Document ---
:1985 Author Organization Interface Problems Problem Status Onset Classification Date Comments Source Date Reported SHUNT MALFUNCTION Active 11/15/[address] ACUTE HEADACHE Active 11/15/[address] Acute pain Active Problem 11/22/2017 [facility] Asthma Resolved Problem 11/22/2017 [facility] Bronchitis Resolved Problem 11/22/2017 [facility] Cerebral palsy Resolved Problem 11/22/2017 [facility] Headache Active Problem 11/22/2017 [facility] Hydrocephalus Resolved Problem 11/22/2017 [facility] Osteomyelitis Resolved Problem 11/22/2017 [facility] HEADACHE Active [facility] Medications Medication Details Route Status Patient Ordering Order Source Instructions Provider Date Docusate Sodium 100 mg=1 cap, Active 11/19[facility] [place] 100 MG Oral PO, BID, 0 2018 Medical Capsule Refill(s) [place] Zosyn 0 Refill(s) Active [facility] 2018 Medical [place] celecoxib 200 200 mg=1 cap, Active 11/19[facility] [place] mg oral capsule PO, BID, 0 2018 Medical Refill(s) [place] ascorbic acid 500 mg=1 tab, Active 11/19[facility] [place] PO, BID, 0 2018 Medical Refill(s) Center acetaminophen 1,000 mg=2 tab, Active 11/19[facility] [place] 500 mg oral PO, Q6Hnow, 0 2018 Medical tablet Refill(s) [place] Oxycodone 5 mg=1 tab, PO, Active 11/19[facility] [place] Hydrochloride 5 Q4H, PRN Pain 2018 Medical MG Oral Tablet Score 4-6, 0 Center Refill(s) zinc sulfate 220 mg=1 cap, Active 11/19[facility] [place] 220 mg oral PO, Daily, 0 2018 Medical capsule Refill(s) [place] multivitamin 1 tab, PO, Active 11/19[facility] [place] Daily, 0 2018 Medical Refill(s) Center methocarbamol 1,000 mg=2 tab, Active 11/19[facility] [place] 500 mg oral PO, Q8H, 0 2018 Medical tablet Refill(s) Center LORazepam 0.5 0.5 mg=1 tab, Active [place] mg oral tablet PO, Q8H, PRN 2018 Medical Anxiety, 0 Center Refill(s) Lidocaine 3 patch, TOP, Active [facility] Hydrochloride Daily, Remove 2018 Medical 0.05 MG/MG after 12 hours, Center Transdermal 0 Refill(s) Patch [Lidoderm] Robaxin 1,000 mg, 2 No Longer [facility] tab, Route: PO, Active 2018 Medical Drug form: TAB, Center Q8H, Dosing Weight 127.027, kg, Start date: 11/17/17 16:00:00 CDT, Duration: 30 day, Stop date: 12/17/17 8:00:00 CDTNotes: (Same as:Robaxin) Oxycodone 10 mg, 2 tab, No Longer [facility] Hydrochloride 5 Route: PO, Drug Active 2018 Medical MG Oral Tablet form: TAB, Center Daily, Dosing Weight 127.027, kg, PRN Procedure, Start date: 11/17/17 13:06:00 CDT, Duration: 30 day, Stop date: 12/17/17 13:05:00 CDTNotes: (Same as: Roxicodone) Ativan 0.5 mg, 1 tab, No Longer [facility] Route: PO, Drug Active 2017 Medical form: TAB, Q8H, Center Dosing Weight 127.027, kg, PRN Anxiety, Start date: 11/17/17 10:18:00 CDT, Duration: 7 day, Stop date: 11/24/17 10:17:00 CDTNotes: (Same as: Ativan) Trazodone 50 mg, 1 tab, No Longer [facility] Hydrochloride Route: PO, Drug Active 2018 Medical 50 MG Oral form: TAB, Center Tablet Bedtime, Dosing Weight 127.027, kg, Start date: 11/16/17 21:00:00 CDT, Duration: 30 day, Stop date: 12/15/17 21:00:00 CDTNotes: (Same As: Desyrel) remove patch 3 patch, Route: No Longer [facility] TOP, Bedtime, Active 2017 Medical Drug form: Center ERFILM, Start date: 11/16/17 21:00:00 CDT, Duration: 30 day, Stop date: 12/15/17 21:00:00 CDTNotes: Remove patch 12 hours after application each day. Oxycodone 10 mg, 2 tab, Inactive [facility] Hydrochloride 5 Route: PO, Drug 2018 Medical MG Oral Tablet form: TAB, Center ONCE, Dosing Weight 127.027, kg, Start date: 11/16/17 17:01:00 CDT, Stop date: 11/16/17 17:01:00 CDTNotes: (Same as: Roxicodone) Celebrex 200 mg, 1 cap, No Longer [facility] Route: PO, Drug Active 2018 Medical form: CAP, BID, [place] Dosing Weight 127.027, kg, Start date: 11/16/17 17:00:00 CDT, Duration: 30 day, Stop date: 12/16/17 9:00:00 CDTNotes: NSAID. Please check indication. Not for seizure. (Same As: CeleBREX) Vancomycin 1,500 mg, 250 No Longer [facility] mL, Route: Active 2018 Medical IVPB, Drug Center form: INJ, [id number], Dosing Weight 127.27, kg, Start date: 11/16/17 16:00:00 CDT, Stop date: 11/21/17 8:00:00 CDT, ABX Indication: Skin/Soft Tissue InfectionNotes: TIME CRITICAL MEDICATION Same as: Vancocin-NS (premixed) Infusion rate 2001 mg: infuse over 2.5 hours Lidocaine 3 patch, Route: No Longer [place] Hydrochloride TOP, Daily, Active 2018 Medical 0.05 MG/MG Drug form: [place] Transdermal FILM, Start Patch date: 11/16/17 [Lidoderm] [...] Phenergan) Dilaudid 0.5 mg, 0.25 Inactive [place] mL, Route: IVP, 2017 Medical Drug form: INJ, Center ONCE, Dosing Weight 127.027, kg, Priority: NOW, Start date: 11/15/17 17:40:00 CDT, Stop date: 11/15/17 17:40:00 CDTNotes: Same as Dilaudid Tramadol 100 mg, 2 tab, No Longer [facility] Route: PO, Drug Active 2017 Medical form: TAB, Center Q6Hnow, Dosing Weight 127.027, kg, Start date: 11/15/17 17:00:00 CDT, Duration: 30 day, Stop date: 12/15/17 11:00:00 CDTNotes: Not to exceed 400mg/day. (Same As: Ultram) gabapentin 600 mg, 2 cap, No Longer [facility] Route: PO, Drug Active 2017 Medical form: CAP, Center Q8Hnow, Dosing Weight 127.027, kg, Start date: 11/15/17 17:00:00 CDT, Stop date: 12/15/17 9:00:00 CDTNotes: (Same as: Neurontin) Acetaminophen 1,000 mg, 2 No Longer [facility] tab, Route: PO, Active 2017 Medical Drug form: TAB, Center Q6Hnow, Dosing Weight 127.027, kg, Start date: 11/15/17 17:00:00 CDT, Duration: 30 day, Stop date: 12/15/17 11:00:00 CDTNotes: Max acetaminophen 4000 mg/day (4 gm/day). (Same as: Tylenol Extra Strength) Robaxin 500 mg, 1 tab, No Longer [facility] Route: PO, Drug Active 2017 Medical form: TAB, TID, Center Dosing Weight 127.027, kg, Start date: 11/15/17 17:00:00 CDT, Duration: 30 day, Stop date: 12/15/17 13:00:00 CDTNotes: (Same as:Robaxin) Oxycodone 5 mg, 1 tab, No Longer [facility] Hydrochloride 5 Route: PO, Drug Active [...] 325 MG / 0 Refill(s) Active 2018 [facility] Oxycodone Center Hydrochloride 10 MG Oral Tablet [Percocet 10/325] Dilaudid 0.5 mg, 0.25 Inactive [facility] mL, Route: IVP, 2017 Medical Drug form: INJ, Center ONCE, Start date: 11/15/17 11:01:00 CDT, Stop date: 11/15/17 11:01:00 CDT Phenergan 25 mg, 1 tab, Inactive [facility] Route: PO, Drug 2018 Medical form: [...] Docusate 100 mg, 1 cap, No Longer [facility] Route: PO, Drug Active 2018 Medical form: CAP, BID, Center Dosing Weight 127.27, kg, Start date: 11/15/17 9:00:00 CDT, Duration: 30 day, Stop date: 12/14/17 17:00:00 CDTNotes: (Same as: Colace) (Do Not Crush) Zinc Sulfate 220 mg, 1 cap, No Longer [facility] Route: PO, Drug Active 2018 Medical form: CAP, Center Daily, Dosing Weight 127.27, kg, Start date: 11/15/17 9:00:00 CDT, Duration: 30 day, Stop date: 12/14/17 9:00:00 CDTNotes: (Zinc sulfate capsule) - 220 mg Zinc sulfate=50 mg elemental zinc Same as Zinc Sulfate ascorbic acid 500 mg, 1 tab, No Longer [facility] Route: PO, Drug Active 2017 Medical form: TAB, BID, Center Dosing Weight 127.27, kg, Start date: 11/15/17 9:00:00 CDT, Duration: 30 day, Stop date: 12/14/17 17:00:00 CDTNotes: (Same as: Vitamin C) multivitamin 1 tab, Route: No Longer [facility] PO, Drug Form: Active 2018 Medical TAB, Dosing Center Weight 127.27, kg, Daily, Start date: 11/15/17 9:00:00 CDT, Duration: 30 day, Stop date: 12/14/17 9:00:00 CDTNotes: (Same as:Thera) WASTE: F/P - Black; E - Municipal Trash Bin Take with food. Naproxen 500 mg, 1 tab, Inactive [place] Route: PO, Drug 2017 Medical form: TAB, Center [id number], Dosing Weight 127.27, kg, Start date: 11/15/17 2:00:00 CDT, Duration: 30 day, Stop date: 12/14/17 14:00:00 CDTNotes: (Same as: Naprosyn) Take with food. Zosyn 3.375 gm, No Longer [facility] Route: IVPB, Active 2018 Medical Drug [...] Active 2017 Medical Drug form: INJ, Center [id number], Dosing Weight 127.27, kg, Consider for obese [...] Stop date: 12/15/17 1:45:00 CDTNotes: (Same as: [place] 325/5) Do not exceed 4gm/day of acetaminophen. [...] Benadryl) Magnesium 2 gm, 50 mL, Inactive [facility] Sulfate Route: IV, Drug 2017 Medical form: INJ, Center ONCE, Dosing Weight 127.273, kg, Priority: STAT, Start date: 11/14/17 23:26:00 CDT, Stop date: 11/14/17 23:26:00 CDTNotes: WASTE: F/P - Sink; E - [facility] Trash Bin Sodium Chloride 1,000 mL, 1000 Inactive [facility] 0.9% (Bolus) IV ml/hr, Infuse 2018 [...] Rocephin 1 gm, Route: Inactive 05/04[facility] IVP, Drug form: 2018 Medical PDR/INJ, ONCE, Center Dosing Weight 127.273, kg, Priority: STAT, Start date: 11/14/17 21:21:00 CDT, Stop date: 11/14/17 21:21:00 CDT, ABX Indication: Urinary Tract InfectionNotes: (Same As: Rocephin). MEDICATION WASTE Product Size: 1000 mg Product Wasted: _0__ mg Morphine 4 mg, Route: Inactive 11/15[facility] IVP, ONCE, 2018 Medical Dosing Weight Center 127.273, kg, Priority: STAT, Start date: 11/14/17 19:05:00 CDT, Stop date: 11/14/17 19:05:00 CDT Benadryl 25 mg, 0.5 mL, Inactive 11/14[facility] Route: IVP, 2017 Medical Drug form: INJ, Center ONCE, Dosing Weight 127.273, kg, Priority: STAT, Start date: 11/14/17 18:14:00 CDT, Stop date: 11/14/17 18:14:00 CDTNotes: (Same as: Benadryl) Benadryl 50 mg, 2 cap, Inactive 11/14[facility] Route: PO, Drug 2017 Medical form: CAP, Center ONCE, Dosing Weight 127.273, kg, Priority: STAT, Start date: 11/14/17 17:56:00 CDT, Stop date: 11/14/17 17:56:00 CDTNotes: (Same as: Benadryl) Morphine 4 mg, 1 mL, Inactive 11/14[facility] Route: IVP, 2017 Medical Drug form: Center SOLN, ONCE, Dosing Weight 127.273, kg, Priority: STAT, Start date: 11/14/17 17:56:00 CDT, Stop date: 11/14/17 17:56:00 CDT Allergies, Adverse Reactions, Alerts Substance Category Reaction Severity Reaction Status Date Comments Source type Reported amoxicillin Assertion Drug Active [facility] morphine Assertion Drug Active [facility] Toradol Assertion Drug Active [facility] Minocin Assertion Drug Active [facility] Zofran Assertion Drug Active [facility] Levaquin Assertion Drug Active [facility] Bactrim Assertion Drug Active [facility] Immunizations Immunization Date Given Site Status Last Updated Comments Source Results Order Name Results Value Reference Date Interpretation Comments Source Range CHEM PANEL B/C Ratio 17 6 - 25 11/[address] CHEM PANEL Globulin 4.3 g/dL 2.7 - 4.2 11/[address] CHEM PANEL A/G Ratio 0.7 0.7 - 1.6 11/[address] CHEM PANEL AGAP 14.4 meq/L 10.0 - 11/19 [facility] 20.0 [facility] CHEM PANEL eGFR 113 11/19 Result Comment: The eGFR is calculated using the CKD-EPI formula. In most young, healthy individuals the eGFR will be >90 mL/ min/1.73m2. The eGFR declines with age. An eGFR of 60-89 may be normal in [facility] mL/min/1. some populations, particularly the elderly, for whom the CKD-EPI formula has not been extensively validated. Use of the eGFR is not recommended in the following populations: [address] Individuals with unstable creatinine concentrations, including [...] Phos 76 unit/L 39 - 136 11/[address] CHEM PANEL ALT 35 unit/L 0 - 65 11/[address] CHEM PANEL Albumin Lvl 2.8 g/dL 3.5 - 5.0 11/[address] CHEM PANEL Total Protein 7.1 g/dL 6.4 - 8.4 11/[address] CHEM PANEL Calcium Lvl 8.7 mg/dL 8.5 - 10.5 11/[address] CHEM PANEL AST 18 unit/L 0 - 37 11/[address] CHEM PANEL Bili Total 0.3 mg/dL 0.2 - 1.3 11/[address] CHEM PANEL Potassium Lvl 4.4 meq/L 3.5 - 5.1 11/[address] CHEM PANEL Chloride Lvl 109 meq/L 95 - [address] CHEM PANEL CO2 23 meq/L 24 - [address] CHEM PANEL Glucose Lvl 114 mg/dL 70 - [address] CHEM PANEL Creatinine 1.01 mg/dL 0.50 - 11/19 [facility] Lvl 1.40 /2017 [facility] CHEM PANEL BUN 17 mg/dL 7 - 22 11/[address] CHEM PANEL Sodium Lvl 142 meq/L 135 - [address] HEMATOLOGY Basophils 0.6 % 0.0 - 1.0 11/[address] HEMATOLOGY Segs-Bands # 4.8 K/CMM 1.5 - 8.1 11/[address] HEMATOLOGY Monocytes # 0.7 K/CMM 0.0 - 0.8 11/[address] HEMATOLOGY Lymphocytes # 1.9 K/CMM 1.0 - 5.5 11/[address] HEMATOLOGY Monocytes 9.4 % 2.0 - 12.0 11/[address] HEMATOLOGY Eosinophils # 0.2 K/CMM 0.0 - 0.5 11/[address] HEMATOLOGY Eosinophils 2.9 % 0.0 - 4.0 11/[address] HEMATOLOGY Segs 62.2 % 45.0 - 11/19 [facility] 75.0 [facility] HEMATOLOGY Lymphocytes 24.9 % 20.0 - 11/19 [facility] 40.0 [facility] HEMATOLOGY MCH 27.5 pg 27.0 - 11/19 [facility] 31.0 [facility] HEMATOLOGY MCV 85.3 fL 80.0 - 11/19 [facility] 94.0 [facility] HEMATOLOGY Hct 43.9 % 42.0 - 05 [facility] 54.0 [facility] HEMATOLOGY Hgb 14.2 g/dL 14.0 - 11/19 [facility] 18.0 [facility] HEMATOLOGY WBC 7.7 K/CMM 3.7 - 10.[address] HEMATOLOGY RBC 5.15 M/CMM 4.70 - 05 [place] 6.10 [facility] HEMATOLOGY MPV 8.4 fL 7.4 - 10.4 11/19 [facility] HEMATOLOGY MCHC 32.3 g/dL 32.0 - 11/19 [facility] 36.0 [facility] HEMATOLOGY RDW 17.3 % 11.5 - 11/19 [facility] 14.5 [facility] HEMATOLOGY Platelet 317 K/CMM 133 - 450 11/[address] CHEM PANEL Globulin 4.4 g/dL 2.7 - 4.2 11/[address] CHEM PANEL A/G Ratio 0.6 0.7 - 1.6 11/[address] [place] [address] CHEM PANEL B/C Ratio 17 6 - 25 11/18 2017 [facility] CHEM PANEL AGAP 11.3 meq/L 10.0 - 11/18 [facility] 20. [facility] CHEM PANEL eGFR 134 11/18 Result Comment: The eGFR is calculated using the CKD-EPI formula. In most young, healthy individuals the eGFR will be >90 mL/ min/1.73m2. The eGFR declines with age. An eGFR of 60-89 may be normal in [facility] mL/min/1. some populations, particularly the elderly, for whom the CKD-EPI formula has not been extensively validated. Use of the eGFR is not recommended in the following populations: [address] Individuals with unstable creatinine concentrations, including [...] PANEL Creatinine 0.84 mg/dL 0.50 - 11/18 [facility] Lvl 1.40 [facility] CHEM PANEL Sodium Lvl 142 meq/L 135 - 145 11/18 [facility] CHEM PANEL Glucose Lvl 99 mg/dL 70 - 99 11/[address] CHEM PANEL BUN 14 mg/dL 7 - 22 11/[address] CHEM PANEL Alk Phos 79 unit/L 39 - 136 11/[address] CHEM PANEL Bili Total 0.3 mg/dL 0.2 - 1.3 11/18 [facility] [address] [place] [address] CHEM PANEL AST 14 unit/L 0 - 37 11/[address] [place] [address] CHEM PANEL ALT 43 unit/L 0 - 65 11/[address] CHEM PANEL Total Protein 7.1 g/dL 6.4 - 8.4 11/[address] CHEM PANEL Albumin Lvl 2.7 g/dL 3.5 - 5.0 11/[address] CHEM PANEL Calcium Lvl 9.2 mg/dL 8.5 - 10.5 11/[address] CHEM PANEL CO2 21 meq/L 24 - 32 11/[address] CHEM PANEL Potassium Lvl 4.3 meq/L 3.5 - 5.1 11/[address] CHEM PANEL Chloride Lvl 114 meq/L 95 - 109 11/[address] HEMATOLOGY MCHC 32.5 g/dL 32.0 - 11/18 [facility] 36.0 [facility] HEMATOLOGY RDW 17.5 % 11.5 - 11/18 [facility] 14.5 [facility] HEMATOLOGY Platelet 400 K/CMM 133 - 450 11/[address] HEMATOLOGY MPV 8.5 fL 7.4 - 10.4 11/[address] HEMATOLOGY WBC 6.6 K/CMM 3.7 - 10.4 11/[address] HEMATOLOGY RBC 5.17 M/CMM 4.70 - 11/18 [facility] 6.10 [facility] HEMATOLOGY MCV 86.1 fL 80.0 - 11/18 [facility] 94.0 [facility] HEMATOLOGY Hct 44.5 % 42.0 - 11/18 54.0 [facility] HEMATOLOGY MCH 28.0 pg 27.0 - 11/18 [facility] 31.0 [facility] HEMATOLOGY Hgb 14.5 g/dL 14.0 - 11/18 [facility] 18.0 [facility] HEMATOLOGY Lymphocytes # 1.7 K/CMM 1.0 - 5.5 11/[address] HEMATOLOGY Monocytes # 0.7 K/CMM 0.0 - 0.[address] HEMATOLOGY Eosinophils # 0.2 K/CMM 0.0 - 0.5 11/[address] HEMATOLOGY Lymphocytes 26.1 % 20.0 - 11/18 [facility] 40.0 [facility] HEMATOLOGY Segs 59.3 % 45.0 - 11/18 [facility] 75.0 [facility] HEMATOLOGY Basophils 0.8 % 0.0 - 1.0 11/[address] HEMATOLOGY Monocytes 10.5 % 2.0 - 12.0 11/[address] HEMATOLOGY Eosinophils 3.3 % 0.0 - 4.0 11/[address] HEMATOLOGY Segs-Bands # 3.9 K/CMM 1.5 - 8.1 11/[address] CHEM PANEL Glucose Lvl 74 mg/dL 70 - 99 11/[address] CHEM PANEL BUN 12 mg/dL 7 - 22 11/[address] CHEM PANEL Creatinine 0.75 mg/dL 0.50 - 11/17 [facility] Lvl 1.40 /2017 [facility] CHEM PANEL eGFR 140 11/17 Result Comment: The eGFR is calculated using the CKD-EPI formula. In most young, healthy individuals the eGFR will be >90 mL/ min/1.73m2. The eGFR declines with age. An eGFR of 60-89 may be normal in [facility] mL/min/1.7 some populations, particularly the elderly, for whom the CKD-EPI formula has not been extensively validated. Use of the eGFR is not recommended in the following populations: [address] Individuals with unstable creatinine concentrations, including [...] Lvl 2.9 g/dL 3.5 - 5.0 11/[address] CHEM PANEL Globulin 4.4 g/dL 2.7 - 4.2 11/[address] CHEM PANEL A/G Ratio 0.7 0.7 - 1.6 11/[address] CHEM PANEL Bili Total 0.4 mg/dL 0.2 - 1.3 11/[address] CHEM PANEL Alk Phos 71 unit/L 39 - 136 11/[address] CHEM PANEL AST 15 unit/L 0 - 37 05 [facility] [address] [place] [address] CHEM PANEL ALT 28 unit/L 0 - [address] CHEM PANEL Potassium Lvl 4.4 meq/L 3.5 - 5.1 11/[address] CHEM PANEL Sodium Lvl 147 meq/L 135 - [address] CHEM PANEL CO2 25 meq/L 24 - [address] CHEM PANEL Chloride Lvl 114 meq/L 95 - [address] CHEM PANEL B/C Ratio 16 6 - 25 11/[address] CHEM PANEL Calcium Lvl 8.7 mg/dL 8.5 - 10.5 11/[address] CHEM PANEL AGAP 12.4 meq/L 10.0 - 11/17 [facility] 20.0 [facility] CHEM PANEL Total Protein 7.3 g/dL 6.4 - 8.4 11/[address] HEMATOLOGY Platelet 345 K/CMM 133 - 450 05 [facility] [address] [place] [address] HEMATOLOGY MPV 8.7 fL 7.4 - 10.4 11/[address] HEMATOLOGY WBC 6.9 K/CMM 3.7 - 10.4 11/[address] HEMATOLOGY RBC 5.30 M/CMM 4.70 - 11/17 [facility] 6.10 [facility] HEMATOLOGY MCHC 32.8 g/dL 32.0 - 11/17 36.0 [facility] HEMATOLOGY MCH 27.9 pg 27.0 - 11/17 31.0 [facility] HEMATOLOGY Hgb 14.8 g/dL 14.0 - 11/17 [facility] 18.0 [facility] HEMATOLOGY MCV 85.0 fL 80.0 - 11/17 [facility] 94.0 [facility] HEMATOLOGY Hct 45.1 % 42.0 - 11/17 [facility] 54.0 [facility] HEMATOLOGY RDW 17.5 % 11.5 - 11/17 [facility] 14.5 [facility] HEMATOLOGY Eosinophils # 0.2 K/CMM 0.0 - 0.5 05 [facility] [address] [place] [address] HEMATOLOGY Lymphocytes # 2.0 K/CMM 1.0 - 5.5 05/[address] HEMATOLOGY Monocytes # 0.7 K/CMM 0.0 - 0.8 11/[address] HEMATOLOGY Eosinophils 2.4 % 0.0 - 4.[address] HEMATOLOGY Basophils 0.6 % 0.0 - 1.0 11/[address] HEMATOLOGY Segs-Bands # 4.0 K/CMM 1.5 - 8.1 11/[address] HEMATOLOGY Monocytes 10.4 % 2.0 - 12.0 11/[address] HEMATOLOGY RBC Morph Normal 11/17 [facility] (11/17/17 2:07 AM) [place] HEMATOLOGY Segs 58.1 % 45.0 - 11/17 [facility] 75.0 [facility] HEMATOLOGY Plt Morph Normal 11/[address] (11/17/17 2:07 AM) [place] HEMATOLOGY Lymphocytes 28.5 % 20.0 - 11/17 [facility] 40.0 [facility] HEMATOLOGY Basophils # 0.1 K/CMM 0.0 - 0.2 11/[address] HEMATOLOGY Polychrom Moderate None [facility] 11:07 AM[facility] CHEM PANEL Magnesium Lvl 2.3 mg/dL 1.8 - 2.4 11/[address] CHEM PANEL Phosphorus 3.5 mg/dL 2.5 - 4.5 11/[address] HEMATOLOGY PT 14.0 s 12.0 - 11/15 [facility] 14.7 [facility] HEMATOLOGY PTT 37.6 s 22.9 - 11/15 [facility] 35.8 [facility] HEMATOLOGY INR 1.08 0.85 - 11/15 [place] 1.17 [facility] IMMUNOLOGY C-REACTIVE 13.1 mg/L <=2.9 mg/L 11/15 [facility] PROTEIN [facility] IMMUNOLOGY Prealbumin 25.2 mg/dL 18.0 - 05/ [place] 45.0 [facility] CHEM PANEL Lactic Acid 0.9 mMol/L 0.5 - 2.2 11/15 [facility] Lvl /2017 [facility] HEMATOLOGY Sed Rate 5 mm/h 0 - 15 11/[address] IMMUNOLOGY C-REACTIVE 15.8 mg/L <=2.9 mg/L 05 [facility] PROTEIN /2017 [facility] HEMATOLOGY PT 13.0 s 12.0 - 11/15 [place] 14.7 /2017 [facility] HEMATOLOGY INR 0.98 0.85 - 11/15 [place] 1.17 [facility] HEMATOLOGY PTT 33.2 s 22.9 - 11/15 [place] 35.8 [facility] BLOOD BANK Antibody Scrn Negative 11/14 [facility] RESULTS [facility] (11/14/17 6:51 PM) [place] BLOOD BANK ABO/Rh AB POS 11/14 [facility] RESULTS [facility] URINE AND UA 0.2 EU/dL 0.1 - 1.0 11/14 [facility] Urobilinogen /2017 [facility] URINE AND UA Nitrite Negative Negative 11/14 [facility] (11/14/17 6:35 PM) [place] URINE AND UA Glucose Negative Negative 11/14 [facility] (11/14/17 6:35 PM) [place] URINE AND UA Ketones Negative Negative 11/14 [facility] Medical *NA* [place] (11/14/17 6:35 PM) URINE AND UA Bili Negative Negative 11/14 [facility] *NA* [place] (11/14/17 6:35 PM) URINE AND UA Blood Trace Negative 11/14 [facility] *ABN* [place] (11/14/17 6:35 PM) URINE AND UA Leuk Est Small Negative 11/14 [facility] *ABN* [place] (11/14/17 6:35 PM) URINE AND UA Spec Grav 1.020 <=1.030 11/14 [facility]2017 [facility] URINE AND UA pH 6.0 5.0 - 8.0 11/14 [facility] STOOL [address] URINE AND UA Color Yellow Yellow 11/14 [facility] *NA* [place] (11/14/17 6:35 PM) URINE AND UA Protein Trace Negative 11/14 [facility] *ABN* [place] (11/14/17 6:35 PM) URINE AND UA Turbidity Slight Cloudy Clear 11/14 [facility] STOOL [facility] (11/14/17 6:35 PM) [place] URINE AND UA Hyal Cast 0-2 0 - 2 11/14 [facility] STOOL [facility] (11/14/17 6:35 PM) [place] URINE AND UA Bacteria Occasional None Seen 11/14 [facility] STOOL /HPF /HPF /2017 [facility] URINE AND UA RBC 11-20 /HPF 0 - 2 11/[address] URINE AND UA Sq Epi Occasional Few /LPF 11/14 [facility] STOOL /LPF /[address] [place] [address] URINE AND UA WBC 51-100 None Seen 11/14 [facility] STOOL /HPF /HPF /2017 [facility] HEMATOLOGY Basophils # 0.1 K/CMM 0.0 - 0.2 11/[address] HEMATOLOGY Polychrom Slight 11/[address] HEMATOLOGY Plt Morph Normal 11/14 [facility]2017 [facility] (11/14/17 6:20 PM) [place] Brain shunt Brain shunt EXAM: SKULL 2 VIEWS 11/14 - [facility] series DX series DX - [facility] EXAM: CHEST 2 VIEWS This report was dictated by a Qc Scientist /Fellow. I have personally reviewed the images [...] wo EXAM: CT BRAIN WITHOUT CONTRAST 11/14 - [facility] contrast CT contrast CT /2017 - Medical This report was dictated by a Qc Scientist/Fellow. I have personally reviewed the images as Center well as the Resident's interpretation and agree with the findings. 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 TECHNIQUE: Axial CT images of the brain were obtained. Sagittal and coronal reformats. IV contrast: None. 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 Also present is a right frontal approach LOU[employer] DOOR ASSEMBLER shunt with tip in the left lateral [...] 1view EXAM: XR CHEST 1 VIEW 11/14 - [facility] DX DX /2018 - Medical This report was dictated by a Qc Scientist/Fellow. I have personally reviewed the images as [...] Source Temperature Oral (F) 97.2 F 11/19/2017 [facility] Systolic (mm Hg) 127 11/19/2017 [facility] Diastolic (mm Hg) 85 11/19/2017 [facility] Heart Rate 81 11/19/2017 [facility] Respitory Rate 18 11/19/2017 [facility] Heart Rate 90 11/19/2017 [facility] Systolic (mm Hg) 106 11/19/2017 [facility] Diastolic (mm Hg) 71 11/19/2017 [facility] Respitory Rate 18 11/19/2017 [facility] Temperature Oral (F) 98.1 F 11/19/2017 [facility] Respitory Rate 18 11/19/2017 [facility] Systolic (mm Hg) 168 11/19/2017 [facility] Diastolic (mm Hg) 107 11/19/2017 [facility] Heart Rate 87 11/19/2017 [facility] Temperature Oral (F) 98.1 F 11/19/2017 [facility] Weight 127.027 11/18/2017 [facility] Weight 127.027 11/17/2017 [facility] Weight 127.027 11/15/2017 [facility] BMI Calculated 48.16 11/15/2017 [facility] Height 162.56 cm 11/15/2017 [facility] Height 149.86 cm 11/14/2017 [facility] BMI Calculated 56.67 11/14/2017 [facility] Encounters Location Location Encounter Encounter Reason Attending ADM DC Status Source Details Type Number For Provider Date Date [facility] [id number] [place] 11/14 11/19 [facility] Procedures Procedure Code Date Perfomer Comments Source Cholecystectomy [id number] [facility] Shunt of cerebral [id number] [facility] ventricle to [facility] extracranial site Center
--- OUTSIDE RECORDS SUMMARY | 2018-04-24 11:14 | XMS REPORT ---
[...] ulcer stage Problem Paraplegia G82.20 Active Assessment DINING CAR STEWARD (ventriculoperitoneal) shunt Z98.2 Active status Problem Nausea [...] headache, R51 Active unspecified headache type Problem DINING CAR STEWARD (ventriculoperitoneal) shunt Z98.2 Active status Problem Episodic tension-type headache, not G44.219 Active intractable Problem Lumbar spina bifida with Q05.2 Active hydrocephalus Problem Foot ulcer L97.509 Active Problem Nicotine dependence F17.200 Active Problem Dependence on wheelchair Z99.3 Active Medications Medication Code Code Instructions Start End Status Dosage System Date Date Macrobid [facility] 72845831771 100 MG Orally Active 1 capsule every 12 hrs with food Tylenol with [facility] 23127416919 300-60 MG Active 1 tablet as Codeine #4 Orally every 6 needed hrs Pantoprazole ND 64091232287 40 MG Orally Active 1 tablet Sodium Once a day Citalopram [facility] 21029041257 10 MG Orally Active 1 tablet Hydrobromide Once a day Collagenase [facility] [address]-35 250 UNIT/GM Active 1 application Externally to affected Once a day area Seroquel [facility] 17365929464 25 MG Orally Active 1 tablet Once a day at bedtime Results No Known Results Summary Purpose [employer] Submission
--- OUTSIDE RECORDS SUMMARY | 2018-04-24 11:14 | XMS REPORT ---
:1985 Author [facility] Address [address] [place] [address] [address] [place] [address] Care Team Providers Name Role Phone JAQUELIN GENAO Unavailable Unavailable Problems This patient has no known problems. Allergies, Adverse Reactions, Alerts This patient has no known allergies or adverse reactions. Medications This patient has no known medications. Results Test Description Test Time Test Comments Text Results Atomic Results Result Comments BLOOD CULTURE 2016-12-28 16:22:00 Test Item Value Reference Range Comments CULTURE (BEAKER) (test npar=3119) No growth in 5 days BLOOD [id number] 16:22:00 Test Item Value Reference Range Comments CULTURE (BEAKER) (test qmix=6329) No growth in 5 days (MANUAL DIFFERENTIAL)2016-12-25 22:29:00 Test Item Value Reference Range Comments TOTAL COUNTED (BEAKER) (test ztvd=0253) WBC MORPHOLOGY (BEAKER) (test hnpo=414) Normal PLT MORPHOLOGY (BEAKER) (test gipq=977) Normal RBC MORPHOLOGY (BEAKER) (test tmfl=569) Normal CBC W/PLT COUNT & AUTO [id number] 22:28:00 Test Item Value Reference Range Comments WHITE BLOOD CELL COUNT (BEAKER) (test lusx=587) 7.3 K/ L 4.0-10.0 RED BLOOD CELL COUNT (BEAKER) (test qgev=760) 5.09 M/ L 4.20-5.80 HEMOGLOBIN (BEAKER) (test xssh=971) 13.0 GM/DL 13.0-16.8 HEMATOCRIT (BEAKER) (test iivw=707) 42.3 % 40.0-50.0 MEAN CORPUSCULAR VOLUME (BEAKER) (test sjqz=347) 83.0 fL 82.0-98.0 MEAN CORPUSCULAR HEMOGLOBIN (BEAKER) (test 25.6 pg 27.0-33.0 gyil=959) MEAN CORPUSCULAR HEMOGLOBIN CONC (BEAKER) (test 30.8 GM/DL 32.0-36.0 itjy=008) RED CELL DISTRIBUTION WIDTH (BEAKER) (test 18.0 % 10.3-14.2 obbi=534) PLATELET COUNT (BEAKER) (test dgco=033) 331 K/CU MM 150-430 MEAN PLATELET VOLUME (BEAKER) (test dopo=407) 8.5 fL 6.5-10.5 NUCLEATED RED BLOOD CELLS (BEAKER) (test 0 /100 WBC 0-0 vavf=702) NEUTROPHILS RELATIVE PERCENT (BEAKER) (test 65 % eaum=568) LYMPHOCYTES RELATIVE PERCENT (BEAKER) (test 23 % cacp=167) MONOCYTES RELATIVE PERCENT (BEAKER) (test 8 % fbod=759) EOSINOPHILS RELATIVE PERCENT (BEAKER) (test 3 % djmc=984) BASOPHILS RELATIVE PERCENT (BEAKER) (test 1 % xqpr=052) NEUTROPHILS ABSOLUTE COUNT (BEAKER) (test 4.75 K/ L 1.80-8.00 woxh=902) LYMPHOCYTES ABSOLUTE COUNT (BEAKER) (test 1.68 K/ L 1.48-4.50 ypwu=553) MONOCYTES ABSOLUTE COUNT (BEAKER) (test 0.55 K/ L 0.00-1.30 bfto=020) EOSINOPHILS ABSOLUTE COUNT (BEAKER) (test 0.24 K/ L 0.00-0.50 qwim=991) BASOPHILS ABSOLUTE COUNT (BEAKER) (test 0.05 K/ L 0.00-0.20 sfcu=112) 0.000.520.000.000.000.00BASI METABOLIC [id number] 11:11:00 Test Item Value Reference Range Comments SODIUM (BEAKER) (test 138 meq/L 136-145 aniw=863) POTASSIUM (BEAKER) (test 4.0 meq/L 3.5-5.1 wotz=928) CHLORIDE (BEAKER) (test 108 meq/L 98-107 ndqs=081) CO2 (BEAKER) (test 23 meq/L 22-29 hbmi=481) BLOOD UREA NITROGEN 11 mg/dL 7-21 (BEAKER) (test jhst=025) CREATININE (BEAKER) (test 0.74 mg/dL 0.57-1.25 oxtm=331) GLUCOSE RANDOM (BEAKER) 124 mg/dL 70-105 (test eimd=057) CALCIUM (BEAKER) (test 8.9 mg/dL 8.4-10.2 ocpg=394) EGFR (BEAKER) (test 150 mL/min/1.73 sq m ESTIMATED GFR IS NOT emah=5460) ACCURATE CREATININE CLEARANCE IN PREDICTING GLOMERULAR FILTRATION RATE. ESTIMATED GFR IS NOT APPLICABLE FOR DIALYSIS PATIENTS. URINE [id number] 09:56:00 Test Item Value Reference Range Comments CULTURE (BEAKER) (test hjpf=8274) <10,000 col/mL skin marilee COMPREHENSIVE METABOLIC [id number] 08:49:00 Test Item Value Reference Range Comments TOTAL PROTEIN (BEAKER) 7.3 gm/dL 6.0-8.3 (test gpdp=567) ALBUMIN (BEAKER) (test 3.3 g/dL 3.5-5.0 ldax=8181) ALKALINE PHOSPHATASE 89 U/L 40-150 (BEAKER) (test olrr=892) BILIRUBIN TOTAL (BEAKER) 1.4 mg/dL 0.2-1.2 (test ywzf=246) SODIUM (BEAKER) (test 137 meq/L 136-145 gxcl=525) POTASSIUM (BEAKER) (test 3.7 meq/L 3.5-5.1 rbvd=146) CHLORIDE (BEAKER) (test 108 meq/L 98-107 gkdm=705) CO2 (BEAKER) (test 17 meq/L 22-29 ehmd=846) BLOOD UREA NITROGEN 12 mg/dL 7-21 (BEAKER) (test emzs=925) CREATININE (BEAKER) (test 0.78 mg/dL 0.57-1.25 wblv=066) GLUCOSE RANDOM (BEAKER) 119 mg/dL 70-105 (test ekvw=735) CALCIUM (BEAKER) (test 8.6 mg/dL 8.4-10.2 iszy=676) AST (SGOT) (BEAKER) (test 13 U/L 5-34 mqim=218) ALT (SGPT) (BEAKER) (test 28 U/L 6-55 oqgu=127) EGFR (BEAKER) (test 141 mL/min/1.73 sq ESTIMATED GFR IS NOT exom=3365) m ACCURATE CREATININE CLEARANCE IN PREDICTING GLOMERULAR FILTRATION RATE. ESTIMATED GFR IS NOT APPLICABLE FOR DIALYSIS PATIENTS. CBC W/PLT COUNT & AUTO [id number] 08:46:00 Test Item Value Reference Range Comments WHITE BLOOD CELL COUNT (BEAKER) (test naon=818) 9.4 K/ L 4.0-10.0 RED BLOOD CELL COUNT (BEAKER) (test gdgl=151) 4.79 M/ L 4.20-5.80 HEMOGLOBIN (BEAKER) (test bhtf=150) 12.8 GM/DL 13.0-16.8 HEMATOCRIT (BEAKER) (test crtf=924) 40.0 % 40.0-50.0 MEAN CORPUSCULAR VOLUME (BEAKER) (test zghf=082) 83.4 fL 82.0-98.0 MEAN CORPUSCULAR HEMOGLOBIN (BEAKER) (test 26.7 pg 27.0-33.0 adkh=969) MEAN CORPUSCULAR HEMOGLOBIN CONC (BEAKER) (test 32.0 GM/DL 32.0-36.0 chyu=918) RED CELL DISTRIBUTION WIDTH (BEAKER) (test 18.2 % 10.3-14.2 eatu=311) PLATELET COUNT (BEAKER) (test egpf=554) 313 K/CU MM 150-430 MEAN PLATELET VOLUME (BEAKER) (test dwes=918) 8.6 fL 6.5-10.5 NUCLEATED RED BLOOD CELLS (BEAKER) (test 0 /100 WBC 0-0 yblx=446) NEUTROPHILS RELATIVE PERCENT (BEAKER) (test 70 % bejz=553) LYMPHOCYTES RELATIVE PERCENT (BEAKER) (test 16 % dfxp=243) MONOCYTES RELATIVE PERCENT (BEAKER) (test 12 % dzsl=212) EOSINOPHILS RELATIVE PERCENT (BEAKER) (test 1 % zmei=322) BASOPHILS RELATIVE PERCENT (BEAKER) (test 1 % sosn=394) NEUTROPHILS ABSOLUTE COUNT (BEAKER) (test 6.54 K/ L 1.80-8.00 nnpr=152) LYMPHOCYTES ABSOLUTE COUNT (BEAKER) (test 1.50 K/ L 1.48-4.50 oxme=225) MONOCYTES ABSOLUTE COUNT (BEAKER) (test 1.13 K/ L 0.00-1.30 azls=452) EOSINOPHILS ABSOLUTE COUNT (BEAKER) (test 0.13 K/ L 0.00-0.50 lrxn=423) BASOPHILS ABSOLUTE COUNT (BEAKER) (test 0.06 K/ L 0.00-0.20 gjtn=654) 0.00URINALYSIS W/ [id number] 20:36:00 Test Item Value Reference Range Comments COLOR (BEAKER) (test beuc=083) Yellow CLARITY (BEAKER) (test rmxc=380) Hazy SPECIFIC GRAVITY UA (BEAKER) (test xlod=900) 1.012 1.001-1.035 PH UA (BEAKER) (test ohxz=940) 5.5 5.0-8.0 PROTEIN UA (BEAKER) (test vjyh=420) 100 mg/dL Negative GLUCOSE UA (BEAKER) (test ofht=394) Negative Negative KETONES UA (BEAKER) (test wdkv=832) Negative Negative BILIRUBIN UA (BEAKER) (test mbhu=325) Negative Negative BLOOD UA (BEAKER) (test fmyl=339) Moderate Negative NITRITE UA (BEAKER) (test tlpi=512) Negative Negative LEUKOCYTE ESTERASE UA (BEAKER) (test mizb=813) Large Negative UROBILINOGEN UA (BEAKER) (test bjjj=757) 3.0 mg/dL 0.2-1.0 RBC UA (BEAKER) (test hjwi=560) 19 /HPF WBC UA (BEAKER) (test hlaa=822) 182 /HPF SOURCE(BEAKER) (test ityz=1873) BASIC METABOLIC [id number] 17:00:00 Test Item Value Reference Range Comments SODIUM (BEAKER) (test 140 meq/L 136-145 rgeh=644) POTASSIUM (BEAKER) (test 3.7 meq/L 3.5-5.1 jemx=494) CHLORIDE (BEAKER) (test 112 meq/L 98-107 sqnx=208) CO2 (BEAKER) (test 17 meq/L 22-29 nhig=883) BLOOD UREA NITROGEN 23 mg/dL 7-21 (BEAKER) (test vwsh=811) CREATININE (BEAKER) (test 1.00 mg/dL 0.57-1.25 wkrc=231) GLUCOSE RANDOM (BEAKER) 102 mg/dL 70-105 (test zurb=874) CALCIUM (BEAKER) (test 8.7 mg/dL 8.4-10.2 yvmv=812) EGFR (BEAKER) (test 106 mL/min/1.73 sq m ESTIMATED GFR IS NOT wijh=3376) ACCURATE CREATININE CLEARANCE IN PREDICTING GLOMERULAR FILTRATION RATE. ESTIMATED GFR IS NOT APPLICABLE FOR DIALYSIS PATIENTS. Specimen slightly ictericCBC W/PLT COUNT & AUTO [id number] 12:18 :00 Test Item Value Reference Range Comments WHITE BLOOD CELL COUNT (BEAKER) (test ierz=213) 16.4 K/ L 4.0-10.0 RED BLOOD CELL COUNT (BEAKER) (test uthh=809) 5.22 M/ L 4.20-5.80 HEMOGLOBIN (BEAKER) (test byav=445) 14.4 GM/DL 13.0-16.8 HEMATOCRIT (BEAKER) (test apss=693) 42.9 % 40.0-50.0 MEAN CORPUSCULAR VOLUME (BEAKER) (test qiok=504) 82.2 fL 82.0-98.0 MEAN CORPUSCULAR HEMOGLOBIN (BEAKER) (test 27.5 pg 27.0-33.0 smue=448) MEAN CORPUSCULAR HEMOGLOBIN CONC (BEAKER) (test 33.5 GM/DL 32.0-36.0 gmdd=137) RED CELL DISTRIBUTION WIDTH (BEAKER) (test 16.2 % 10.3-14.2 qtfk=168) PLATELET COUNT (BEAKER) (test goos=053) 329 K/CU MM 150-430 MEAN PLATELET VOLUME (BEAKER) (test sctf=773) 8.2 fL 6.5-10.5 NUCLEATED RED BLOOD CELLS (BEAKER) (test 0 /100 WBC 0-0 jfas=676) NEUTROPHILS RELATIVE PERCENT (BEAKER) (test 83 % mieu=061) LYMPHOCYTES RELATIVE PERCENT (BEAKER) (test 7 % qpjk=678) MONOCYTES RELATIVE PERCENT (BEAKER) (test 9 % dqdb=538) EOSINOPHILS RELATIVE PERCENT (BEAKER) (test 0 % mtno=688) BASOPHILS RELATIVE PERCENT (BEAKER) (test 0 % bxcq=845) NEUTROPHILS ABSOLUTE COUNT (BEAKER) (test 1.62 K/ L 1.80-8.00 yshw=637) LYMPHOCYTES ABSOLUTE COUNT (BEAKER) (test 1.15 K/ L 1.48-4.50 ycaw=904) MONOCYTES ABSOLUTE COUNT (BEAKER) (test 1.56 K/ L 0.00-1.30 ymzg=156) EOSINOPHILS ABSOLUTE COUNT (BEAKER) (test 0.01 K/ L 0.00-0.50 pzxp=652) BASOPHILS ABSOLUTE COUNT (BEAKER) (test 0.02 K/ L 0.00-0.20 qrrl=920) (MANUAL DIFFERENTIAL)2016-12-23 12:18:00 Test Item Value Reference Range Comments TOTAL COUNTED (BEAKER) (test fpcj=7153) WBC MORPHOLOGY (BEAKER) (test eaze=452) Normal PLT MORPHOLOGY (BEAKER) (test enbb=313) Normal RBC MORPHOLOGY (BEAKER) (test nmra=676) Normal
--- OUTSIDE RECORDS SUMMARY | 2018-04-24 11:14 | XMS REPORT ---
[...] tension-type headache, not G44.219 Active intractable Assessment CROZE CUTTER (ventriculoperitoneal) shunt Z98.2 Active status Assessment Ulcer [...] vomiting not specified, unspecified vomiting type Problem CROZE CUTTER (ventriculoperitoneal) shunt Z98.2 Active status Medications Medication Code Code Instructions Start End Status Dosage System Date Date Tylenol with [facility] 91180357596 300-60 MG Active 1 tablet as Codeine #4 Orally every 6 needed hrs Macrobid [facility] 21964095165 100 MG Orally Active 1 capsule every 12 hrs with food Pantoprazole ND 67835583850 40 MG Orally Active 1 tablet Sodium Once a day Collagenase [facility] [address]-41 250 UNIT/GM Active 1 application Externally to affected Once a day area Results No Known Results Summary Purpose eClinicalWorks Submission
--- OUTSIDE RECORDS SUMMARY | 2018-04-24 11:14 | XMS REPORT ---
[...] hydrocephalus Problem Bipolar depression F31.30 Active Assessment ASPHALT LAYER (ventriculoperitoneal) shunt Z98.2 Active status Problem Depression [...] spina bifida with Q05.2 Active hydrocephalus Problem ASPHALT LAYER (ventriculoperitoneal) shunt Z98.2 Active status Problem Nicotine dependence F17.200 Active Medications Medication Code Code Instructions Start End Status Dosage System Date Date Collagenase [facility] [address]-57 250 UNIT/GM Active 1 application Externally to affected Once a day area Macrobid [facility] 78022982250 100 MG Orally Active 1 capsule every 12 hrs with food Tylenol with [facility] 20046119254 300-60 MG Active 1 tablet as Codeine #4 Orally every 6 needed hrs Citalopram [facility] 45445134071 10 MG Orally January Active 1 tablet Hydrobromide Once a day 2017 Pantoprazole [facility] 87220811899 40 MG Orally Active 1 tablet Sodium Once a day Seroquel [facility] 73483506339 25 MG Orally January Active 1 tablet Once a day at 16, bedtime 2017 Results No Known Results Summary Purpose eClinicalWorks Submission
--- OUTSIDE RECORDS SUMMARY | 2018-04-24 11:14 | XMS REPORT ---
:1985 Author Organization [employer] Care Team Providers Name Role Phone Gamble, [...] headache, R51 Active unspecified headache type Problem PRIVATE CHEF (ventriculoperitoneal) shunt Z98.2 Active status Medications No Known Medications Results No Known Results Summary Purpose [employer] and [employer] Submission
--- OUTSIDE RECORDS SUMMARY | 2018-04-24 11:14 | XMS REPORT ---
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
[2018-04-24 13:55] LABS: Absolute Lymphocytes (CBC) 2.2 K/uL (0.7-4.9); Absolute Monocytes 0.8 K/uL (0.1-1.3); Absolute Neutrophil 6.1 K/uL (1.8-8.0); Basophils % 0.7 % (0-1.3); Hematocrit 29.6 % (39.6-49.0); Lymphocytes % 23.8 % (15.3-44.8); MCH 31.8 pg (27.0-35.0); MCV 90.7 fL (80-100); MPV 8.5 fL (7.6-11.3); Monocytes % 8.3 % (3.3-12.3); RBC Red Blood Cell Count 3.26 M/uL (4.33-5.43)
--- NOTE | 2018-04-24 14:37 | RAD REPORT ---
EXAM DESCRIPTION: RAD - Chest Single View - 04/24/2018 2:11 pm CLINICAL HISTORY: Right-sided chest and abdominal pain COMPARISON: March 09 TECHNIQUE: AP portable chest image was obtained 1402 hours . FINDINGS: Lungs are clear. Heart and vasculature are normal. No measurable pleural effusion and no p neumothorax. No acute bony abnormality seen. Shunt tubing overlies the chest. No free air under the d iaphragm. No acute aortic finding. IMPRESSION: No acute cardiopulmonary process. No significant change from comparison.
[2018-04-24 14:39] LABS: ALT/SGPT 90 U/L (12-78); AST/SGOT 15 U/L (15-37); Albumin 2.9 g/dL (3.4-5.0); Alkaline Phosphatase 242 U/L (45-117); BUN Blood Urea Nitrogen 10 mg/dL (7-18); Bicarbonate 28 mmol/L (21-32); Bilirubin Direct 0.2 mg/dL (0-0.2); Bilirubin Total 0.5 mg/dL (0.2-1.0); CKMB Creatine Kinase MB < 1.0 ng/mL (0.3-3.6); Creatine Phosphokinase 66 U/L (39-308); Glucose Level 85 mg/dL (74-106); Lipase 81 U/L (73-393); Potassium 4.4 mmol/L (3.5-5.1); Protein, Total 8.9 g/dL (6.4-8.2); Sodium Level 142 mmol/L (136-145); Troponin (Emerg Dept Use Only) < 0.02 ng/mL (0.0-0.045)
[2018-04-24 14:46] LABS: Protime INR 1.15
[2018-04-24 14:48] LABS: Urine Blood 1+ (NEG); Urine Glucose NEGATIVE (NEG); Urine Protein NEGATIVE (NEG); Urine Specific Gravity 1.015 (1.005-1.030); Urine pH 8.5 (5.0-7.0)
[2018-04-24 14:50] LABS: Urine Blood TRACE (NEG); Urine Glucose NEGATIVE (NEG); Urine Protein 1+ (NEG); Urine Specific Gravity 1.015 (1.005-1.030); Urine pH >8.5 (5.0-7.0)
[2018-04-24 14:56] LABS: Urine Amorphous Sediment 2+ /HPF (NONE SEEN); Urine Bacteria LOADED /HPF (NONE SEEN); Urine Culture Reflex Order REFLEXED; Urine Mucus S /HPF (NONE SEEN); Urine RBC <5 /HPF (NONE SEEN)
[2018-04-24] MEDS ORDERED: ONDANSETRON 4 MG (ODT) TAB ONE (15:04)
[2018-04-24] MEDS ORDERED: HYDROCODONE/APAP 10/325 TAB ONE (15:04)
[2018-04-24] MEDS ORDERED: PROMETHAZINE 25 MG TABLET ONE (15:09)
--- NOTE | 2018-04-24 16:14 | EDPHYS ---
Physician Documentation [facility] Name: Roland Feldman Jr Age: 32 yrs Sex: Male : 1985 Arrival Date: 04/24/2018 Time: 11:11 Bed 24 Private MD: Asiya Gamble ED Physician Prince Warner HPI: 04/25 07:51 This 32 yrs old Black Male presents to ER via Wheelchair with complaints of Abdominal kdr Pain. 07:51 The patient presents with abdominal pain in the right upper quadrant, right lower kdr quadrant. Onset: The symptoms/episode began/occurred gradually, yesterday. The symptoms do not radiate. Associated signs and symptoms: Pertinent positives: diarrhea, Pertinent negatives: nausea and vomiting, anorexia, blood in stools, chest pain, constipation, dysuria, fever, headache, hematuria, nausea, palpitations, shortness of breath, testicular pain, vomiting, vomiting blood. The symptoms are described as achy, burning, crampy, dull, intermittent, vague, waxing/waning. Modifying factors: The symptoms are alleviated by nothing, the symptoms are aggravated by drinking, food, medication(s). Severity of pain: At its worst the pain was mild moderate just prior to arrival, in the emergency department the pain is unchanged. The patient has experienced similar episodes in the past, multiple times. The patient has been recently seen by a physician: the patient's primary care provider. Historical: - Allergies: 04/24 11:18 Amoxicillin; sv 11:18 Bactrim; sv 11:18 Ciprofloxacin; sv 11:18 CLAVULANIC ACID; sv 11:18 Doxycycline; sv 11:18 Levofloxacin; sv 11:18 Morphine; sv 11:18 Toradol; sv 11:18 TRIMETHOPRIM; sv 11:18 Vancomycin; sv 11:18 Zofran; sv - PMHx: 11:18 Asthma; Cerebral Palsy; cluster headaches; decubitus ulcers on feet; GERD; sv Hydrocephalus; Hypertension; spina bifida; - Immunization history:: Flu vaccine is up to date. - Ebola Screening: : No symptoms or risks identified at this time. - Social history:: Smoking status: Patient/guardian denies using tobacco. ROS: 04/25 07:51 Constitutional: Negative for fever, chills, and weight loss, Eyes: Negative for injury, kdr pain, redness, and discharge, Neck: Negative for injury, pain, and swelling, Cardiovascular: Negative for chest pain, palpitations, and edema, Respiratory: Negative for shortness of breath, cough, wheezing, and pleuritic chest pain, Back: Negative for injury and pain, : Negative for injury, bleeding, discharge, and swelling, MS/Extremity: Negative for injury and deformity aside from congential dysplasia Skin: Negative for injury, rash, and discoloration, Neuro: Negative for headache, weakness, numbness, tingling, and seizure activity. Abdomen/GI: Positive for abdominal pain, nausea, diarrhea, green, Negative for Exam: 07:51 Constitutional: This is a well developed, well nourished patient who is awake, alert, kdr and in no acute distress. Head/Face: Normocephalic, atraumatic. Eyes: Pupils equal round and reactive to light, extra-ocular motions intact. Lids and lashes normal. Conjunctiva and sclera are non-icteric and not injected. Cornea within normal limits. Periorbital areas with no swelling, redness, or edema. Neck: Trachea midline, no thyromegaly or masses palpated, and no cervical lymphadenopathy. Supple, full range of motion without nuchal rigidity, or vertebral point tenderness. No Meningismus. Chest/axilla: Normal chest wall appearance and motion. Nontender with no deformity. No lesions are appreciated. Cardiovascular: Regular rate and rhythm with a normal S1 and S2. No gallops, murmurs, or rubs. Normal PMI, no JVD. No pulse deficits. Respiratory: Lungs have equal breath sounds bilaterally, clear to auscultation and percussion. No rales, rhonchi or wheezes noted. No increased work of breathing, no retractions or nasal flaring. Abdomen/GI: Soft, non-tender, with normal bowel sounds. No distension or tympany. No guarding or rebound. No evidence of tenderness throughout. Back: No spinal tenderness. No costovertebral tenderness. Full range of motion. Skin: Warm, dry with normal turgor. Normal color with no rashes, no lesions, and no evidence of cellulitis. Neuro: Awake and alert, GCS 15, oriented to person, place, time, and situation. Cranial nerves II-XII grossly intact. Motor strength 5/5 in all extremities. Sensory grossly intact. Cerebellar exam normal. Normal gait. Psych: Awake, alert, with orientation to person, place and time. Behavior, mood, and affect are within normal limits. 07:51 Musculoskeletal/extremity: Extremities: the patient is contracted, in the left knee, left ankle, right knee and right ankle, Congenital dysplasia of both lower extremities. Vital Signs: 04/24 11:18 BP 142 / 91; Pulse 93; Resp 18; Temp 98.2; Pulse Ox 100% ; Weight 132.9 kg; Pain 9/10; sv 13:00 BP 135 / 78; Pulse 78; Resp 16; Pulse Ox 99% on R/A; em 14:11 BP 156 / 88; Pulse 87; Resp 15; Pulse Ox 100% on R/A; Pain 9/10; em 15:00 BP 154 / 93; Pulse 96; Resp 16; Pulse Ox 99% on R/A; Pain 9/10; em 16:06 BP 150 / 92; Pulse 100; Resp 18; Pulse Ox 100% on R/A; kr2 MDM: 16:13 Patient medically screened. kdr 04/25 07:51 Data reviewed: vital signs, nurses notes, lab test result(s), radiologic studies. kdr Counseling: I had a detailed discussion with the patient and/or guardian regarding: the historical points, exam findings, and any diagnostic results supporting the discharge/admit diagnosis, lab results, radiology results, the need for outpatient follow up. Physician consultation: Reema Talley MD regarding patient's condition, Evaluated prior admission data with Dr. Talley - given prior "sepsis" admission with no apparent sepsis by lab data. 04/24 13:26 Order name: Basic Metabolic Panel kdr 04/24 13:26 Order name: Blood Culture Adult (2) kdr 04/24 13:26 Order name: CBC with Diff kdr 04/24 13:26 Order name: Ckmb kdr 04/24 13:26 Order name: CPK kdr 04/24 13:26 Order name: Lactate; Complete Time: 14:52 kdr 04/24 13:26 Order name: LFT's; Complete Time: 14:52 kdr 04/24 13:26 Order name: Lipase; Complete Time: 14:52 kdr 04/24 13:26 Order name: Procalcitonin; Complete Time: 15:36 kdr 04/24 13:26 Order name: Protime (+inr); Complete Time: 14:52 kdr 04/24 13:26 Order name: Ptt, Activated; Complete Time: 14:52 kdr 04/24 13:26 Order name: Troponin (emerg Dept Use Only); Complete Time: 14:52 kdr 04/24 13:26 Order name: Urine Microscopic Only; Complete Time: 15:36 kdr 04/24 13:26 Order name: Basic Metabolic Panel; Complete Time: 14:52 EDMS 04/24 13:26 Order name: Chest Single View XRAY; Complete Time: 14:52 kdr 04/24 13:26 Order name: Accucheck; Complete Time: 14:02 kdr 04/24 13:26 Order name: Cardiac monitoring; Complete Time: 14:02 kdr 04/24 13:26 Order name: EKG - Nurse/Tech; Complete Time: 14:02 kdr 04/24 13:26 Order name: IV Saline Lock - Large Bore; Complete Time: 14:02 kdr 04/24 13:26 Order name: Blood Culture EDAK 04/24 13:26 Order name: CBC with Automated Diff; Complete Time: 14:52 EDMS 04/24 13:26 Order name: CKMB Creatine Kinase MB; Complete Time: 14:52 EDMS 04/24 13:26 Order name: Creatine Phosphokinase; Complete Time: 14:52 EDMS 04/24 14:38 Order name: Urine Dipstick-Ancillary; Complete Time: 14:52 EDMS 04/24 14:38 Order name: Urine Dipstick-Ancillary; Complete Time: 14:52 EDMS 04/24 14:59 Order name: Urine Culture EDAK 04/24 13:26 Order name: Labs collected and sent; Complete Time: 14:02 kdr 04/24 13:26 Order name: O2 Per Protocol; Complete Time: 14:02 kdr 04/24 13:26 Order name: O2 Sat Monitoring; Complete Time: 14:02 kdr 04/24 13:26 Order name: Urine Dipstick-Ancillary (obtain specimen); Complete Time: 14:07 kdr Administered Medications: 04/24 15:07 Drug: [place] 10 mg-325 mg 1 tabs Route: PO; em 16:20 Follow up: Response: No adverse reaction; Pain is decreased kr2 15:08 Drug: Phenergan 25 mg Route: PO; em 16:19 Follow up: Response: No adverse reaction; Nausea is decreased kr2 16:19 Not Given (Patient refused, request different medication): Doxycycline 100 mg PO once kr2 16:48 Drug: fentaNYL (PF) 50 mcg Route: IVP; Site: right upper arm; kr2 17:34 Follow up: Response: No adverse reaction; Pain is decreased kr2 Disposition: 04/24/18 16:13 Discharged to Home. Impression: Diarrhea, unspecified, Dehydration. - Condition is Stable. - Discharge Instructions: Dehydration, Adult, Diarrhea, Adult, [id number]. - Prescriptions for promethazine 25 mg Oral Tablet - take 1 tablet by ORAL route every 6 hours As needed; 20 tablet. Flagyl 250 mg Oral Tablet - take 1 tablet by ORAL route every 8 hours for 10 days; 30 tablet. - Medication Reconciliation Form, Thank You Letter, Antibiotic Education form. - Follow up: Asiya Gamble MD; When: 2 - 3 days; Reason: If symptoms return, Further diagnostic work-up, Recheck today's complaints, Continuance of care, Re-evaluation by your physician. - Problem is an acute exacerbation. - Symptoms have improved. Signatures: Dispatcher [employer] EDHoa Hernandez RN RN Prince Mac MD MD kdr Dileep Dominique LVN BILLET STRAIGHTENER Kiki Mcdonough RN RN kr2 Corrections: (The following items were deleted from the chart) 17:37 16:13 04/24/2018 16:13 Discharged to Home. Impression: Diarrhea, unspecified; kr2 Dehydration. Condition is Stable. Forms are Medication Reconciliation Form, Thank You Letter, Antibiotic Education, Prescription Opioid Use. Follow up: Asiya Gamble; When: 2 - 3 days; Reason: If symptoms return, Further diagnostic work-up, Recheck today's complaints, Continuance of care, Re-evaluation by your physician. Problem is an acute exacerbation. Symptoms have improved. kdr
--- NOTE | 2018-04-24 16:14 | ER ---
Nurse's Notes [facility] Name: Roland Feldman Jr Age: 32 yrs Sex: Male : 1985 Arrival Date: 04/24/2018 Time: 11:11 Bed 24 Private MD: Asiya Gamble Diagnosis: Diarrhea, unspecified;Dehydration Presentation: 04/24 11:17 Presenting complaint: Patient states: right sided abd pain and mid back pain x 1 day. sv c/o green diarrhea. Transition of care: patient was not received from another setting of care. Onset of symptoms was April 23, 2018. Care prior to arrival: None. 11:17 Method Of Arrival: Wheelchair sv 11:17 Acuity: YUKI 3 sv 11:18 Note Pt stated that if he wasn't not brought back by 12, he had to leave because he has sv something else he has to do and he would come back to the ER by EMS. 14:08 Risk Assessment: Do you want to hurt yourself or someone else? Patient reports no em desire to harm self or others. 15:00 Initial Sepsis Screen: Does the patient meet any 2 criteria? No. Patient's initial kr2 sepsis screen is negative. Does the patient have a suspected source of infection? No. Patient's initial sepsis screen is negative. Triage Assessment: 11:17 General: Appears in no apparent distress. uncomfortable, obese, Behavior is calm, sv cooperative, appropriate for age. Pain: Complains of pain in back and abdomen Pain currently is 9 out of 10 on a pain scale. EENT: No signs and/or symptoms were reported regarding the EENT system. Neuro: Level of Consciousness is awake, alert, obeys commands, Oriented to person, place, time, situation. Respiratory: Respiratory effort is even, unlabored, Respiratory pattern is regular, symmetrical. GI: Reports upper abdominal pain, diarrhea. Derm: Skin is pink, warm \T\ dry. Historical: - Allergies: 11:18 Amoxicillin; sv 11:18 Bactrim; sv 11:18 Ciprofloxacin; sv 11:18 CLAVULANIC ACID; sv 11:18 Doxycycline; sv 11:18 Levofloxacin; sv 11:18 Morphine; sv 11:18 Toradol; sv 11:18 TRIMETHOPRIM; sv 11:18 Vancomycin; sv 11:18 Zofran; sv - PMHx: 11:18 Asthma; Cerebral Palsy; cluster headaches; decubitus ulcers on feet; GERD; sv Hydrocephalus; Hypertension; spina bifida; - Immunization history:: Flu vaccine is up to date. - Ebola Screening: : No symptoms or risks identified at this time. - Social history:: Smoking status: Patient/guardian denies using tobacco. Screenin:14 Abuse screen: Denies threats or abuse. Nutritional screening: No deficits noted. em Tuberculosis screening: No symptoms or risk factors identified. Fall Risk Ambulatory Aid- None/Bed Rest/Nurse Assist (0 pts). Gait- Normal/Bed Rest/Wheelchair (0 pts). Assessment: 13:16 General: Appears in no apparent distress. comfortable, Behavior is calm, cooperative, em Denies fever. Pain: Complains of pain in abdomen and back Pain currently is 9 out of 10 on a pain scale. Neuro: Level of Consciousness is awake, alert, obeys commands, Oriented to person, place, time, situation. Cardiovascular: Capillary refill < 3 seconds Patient's skin is warm and dry. Respiratory: Airway is patent Respiratory effort is even, unlabored, Respiratory pattern is regular, symmetrical. GI: Abdomen is obese, Bowel sounds present X 4 quads. Abd is soft X 4 quads Abdomen is tender to palpation in right lower quadrant and left lower quadrant Reports diarrhea, since 2 weeks. : leg bag noted to right leg. EENT: No signs and/or symptoms were reported regarding the EENT system. Derm: Wound noted right gluteus sheree. Derm: Musculoskeletal: Range of motion: intact in left knee, left ankle, right knee and right ankle Swelling present in right leg and left leg. 14:00 Reassessment: Patient appears in no apparent distress at this time. Patient and/or em family updated on plan of care and expected duration. Pain level reassessed. Patient is alert, oriented x 3, equal unlabored respirations, skin warm/dry/pink. x-ray at bedside. 15:00 Reassessment: Patient appears in no apparent distress at this time. Patient and/or em family updated on plan of care and expected duration. Pain level reassessed. Patient is alert, oriented x 3, equal unlabored respirations, skin warm/dry/pink. rates pain 9/10, request some medication for pain and nausea, provider notified, new medication orders received. 16:06 Reassessment: Patient appears in no apparent distress at this time. Patient and/or kr2 family updated on plan of care and expected duration. Pain level reassessed. Patient is alert, oriented x 3, equal unlabored respirations, skin warm/dry/pink. Patient states symptoms have improved. 17:25 Reassessment: Awaiting transportation for patient. kr2 17:34 Reassessment: Patient appears in no apparent distress at this time. Patient and/or kr2 family updated on plan of care and expected duration. Pain level reassessed. Patient is alert, oriented x 3, equal unlabored respirations, skin warm/dry/pink. [facility] here to transport patient to his home Patient states feeling better. Vital Signs: 11:18 BP 142 / 91; Pulse 93; Resp 18; Temp 98.2; Pulse Ox 100% ; Weight 132.9 kg; Pain 9/10; sv 13:00 BP 135 / 78; Pulse 78; Resp 16; Pulse Ox 99% on R/A; em 14:11 BP 156 / 88; Pulse 87; Resp 15; Pulse Ox 100% on R/A; Pain 9/10; em 15:00 BP 154 / 93; Pulse 96; Resp 16; Pulse Ox 99% on R/A; Pain 9/10; em 16:06 BP 150 / 92; Pulse 100; Resp 18; Pulse Ox 100% on R/A; kr2 ED Course: 11:11 Patient arrived in ED. as 11:11 Asiya Gamble MD is Private Physician. as 11:17 Triage completed. sv 11:18 Arm band placed on. sv 12:07 Prince Warner MD is Attending Physician. kdr 12:56 Dileep Dominique LVN is Primary Nurse. em 13:14 Patient has correct armband on for positive identification. em 13:32 Warm blanket given. Pillow given. Pulse ox on. NIBP on. Assisted to bathroom. Cleaned jp3 of incontinence. 13:50 Inserted saline lock: 22 gauge in right antecubital area, using aseptic technique. em Blood collected. 13:50 Initial lab(s) drawn, by me, sent to lab. First set of blood cultures drawn by me. em 14:03 EKG done, by mental health technician. reviewed by Prince Warner MD. sm3 14:10 X-ray completed. Portable x-ray completed in exam room. mh1 14:11 Chest Single View XRAY In Process Unspecified. EDMS 15:18 CPK Sent. jp3 15:18 Ckmb Sent. jp3 15:18 CBC with Diff Sent. jp3 15:18 Blood Culture Adult (2) Sent. jp3 15:18 Basic Metabolic Panel Sent. jp3 16:06 Urine Culture Sent. jp3 16:13 Asiya Gamble MD is Referral Physician. kdr 17:35 No provider procedures requiring assistance completed. IV discontinued, intact, kr2 bleeding controlled, No redness/swelling at site. Pressure dressing applied. Administered Medications: 15:07 Drug: [place] 10 mg-325 mg 1 tabs Route: PO; em 16:20 Follow up: Response: No adverse reaction; Pain is decreased kr2 15:08 Drug: Phenergan 25 mg Route: PO; em 16:19 Follow up: Response: No adverse reaction; Nausea is decreased kr2 16:19 Not Given (Patient refused, request different medication): Doxycycline 100 mg PO once kr2 16:48 Drug: fentaNYL (PF) 50 mcg Route: IVP; Site: right upper arm; kr2 17:34 Follow up: Response: No adverse reaction; Pain is decreased kr2 Outcome: 16:13 Discharge ordered by MD. kdr 17:36 Discharged to home via ambulance. kr2 17:36 Condition: good 17:36 Discharge instructions given to patient, Instructed on discharge instructions, follow up and referral plans. medication usage, Demonstrated understanding of instructions, follow-up care, medications, Prescriptions given X 2. 17:37 Patient left the ED. kr2 Signatures: Dispatcher [employer] Hoa Hoffman, Prince Davis RN, MD MD kdr Harvey, Martha 1 Dileep Dominique, SAP PI ARCHITECT SAP PI ARCHITECT Liliya Haney Karey, RN RN kr2 Rebecca Field 3 Jim Richards jp3
[2018-04-24] MEDS ORDERED: FENTANYL CITR 100 MCG/2 ML ONE (16:42)
[2018-04-24 17:45] VITALS: TEMP 98.2
[2018-04-24 17:50] VITALS: BP 150/92; O2SAT 100
--- NOTE | 2018-04-25 08:16 | EKG ---
Test Date: 2018-04-24 Test Time: 13:57:05 Skidder Runner: ANNA MEASUREMENT RESULTS: Intervals: Rate: 89 NH: 164 QRSD: 90 QT: 354 QTc: 430 Mccall: P: 56 NH: 164 QRS: 42 T: 24 INTERPRETIVE STATEMENTS: Normal sinus rhythm with sinus arrhythmia Normal ECG Compared to ECG 11/26/2017 20:41:23 Sinus tachycardia no longer present Electronically Signed On 04-25-18 08:15:37 CDT by Miguel Romo
== END 2018-04-24 17:37 | disposition home or self-care (01) ==
LOC: ER 11:09
DX: E86.0 Dehydration (principal); I10 Essential (primary) hypertension; Z88.1 Allergy status to other antibiotic agents; Z88.3 Allergy status to other anti-infective agents; Z88.5 Allergy status to narcotic agent; Z88.8 Allergy status to other drugs, medicaments and biological substances
CPT/HCPCS: 36415; 71045; 80048; 80076; 81003; 81015; 82550; 82553; 83605; 83690; 84145; 84484; 85025; 85610; 85730; 87040; 87077; 87086; 87088; 87186; 93005; 96374; 99284; J3010

== ENCOUNTER 2018-05-21 22:45 | Emergency (ER) | payer OTHER ==
--- OUTSIDE RECORDS SUMMARY | 2018-05-21 22:48 | XMS REPORT | Clinical Summary ---
:1985 Author Organization [employer] Address [address] [place] [address] Care Team Providers Name Role Phone Rishi Primary Care Provider Allergies Active Allergy Reactions Severity Noted Date Comments Sulfamethoxazole-Trimethoprim Hives High 12/23/2016 Levofloxacin Hives High 12/23/2016 Morphine Hives High 12/23/2016 Sesame Seed Hives 12/23/2016 Ketorolac Rash High 12/23/2016 Vancomycin Analogues Rash High 12/23/2016 Ondansetron Hcl (Pf) Nausea And Vomiting 12/23/2016 Medications Medication Sig Dispensed Refills Start Date End Date Status oxyCODONE-acetaminophe Take 1 tablet by 0 Active n (PERCOCET) 10-325 mg mouth every 4 per tablet (four) hours as needed for Pain. Active Problems Problem Noted Date Spina bifida 12/24/2016 Pyelonephritis 12/23/2016 Social History Tobacco Use Types Packs/Day Years Used Date Current Every Day Smoker Cigarettes 0.5 Tobacco Cessation: Ready to Quit: No Sex Assigned at Date Recorded Not on file Job Start Date Occupation Industry Not on file Not on file Not on file Travel History Travel Start Travel End No recent travel history available. Last Filed Vital Signs Not on file Plan of Treatment Not on file Results Not on fileafter 05/20/2017 Insurance Payer Benefit Plan / Group Subscriber ID Type Phone Address MEDICAID - MEDICAID MEDICAID [employer] xxxxxxxxx Medicaid [facility] CARE Non-Contracted Advance Directives For more information, please contact:[facility] VasquezL[place], [place] [phone] Code Status Date Activated Date Inactivated Comments Full Code 12/23/2016 1:36 AM 12/25/2016 8:43 PM This code status was determined by: Patient
--- OUTSIDE RECORDS SUMMARY | 2018-05-21 22:49 | XMS REPORT | Continuity of Care Document ---
:1985 Author Organization Interface Problems Problem Status Onset Classification Date Comments Source Date Reported SHUNT MALFUNCTION Active 11/15/[address] ACUTE HEADACHE Active 11/15/[address] Acute pain Active Problem 11/22/2017 [facility] Asthma Resolved Problem 11/22/2017 [facility] Bronchitis Resolved Problem 11/22/2017 [facility] Cerebral palsy Resolved Problem 11/22/2017 [facility] Headache Active Problem 11/22/2017 [facility] Hydrocephalus Resolved Problem 11/22/2017 [facility] Osteomyelitis Resolved Problem 11/22/2017 [facility] HEADACHE Active [facility] Medications Medication Details Route Status Patient Ordering Order Source Instructions Provider Date Docusate Sodium 100 mg=1 cap, Active 11/19[facility] [place] 100 MG Oral PO, BID, 0 2018 Medical Capsule Refill(s) [place] Zosyn 0 Refill(s) Active [facility] 2018 Medical [place] celecoxib 200 200 mg=1 cap, Active 11/19[facility] [place] mg oral capsule PO, BID, 0 2018 Medical Refill(s) [place] ascorbic acid 500 mg=1 tab, Active 11/19[facility] [place] PO, BID, 0 2018 Medical Refill(s) Center acetaminophen 1,000 mg=2 tab, Active 11/19[facility] [place] 500 mg oral PO, Q6Hnow, 0 2018 Medical tablet Refill(s) [place] Oxycodone 5 mg=1 tab, PO, Active 11/19[facility] [place] Hydrochloride 5 Q4H, PRN Pain 2018 Medical MG Oral Tablet Score 4-6, 0 Center Refill(s) zinc sulfate 220 mg=1 cap, Active 11/19[facility] [place] 220 mg oral PO, Daily, 0 2018 Medical capsule Refill(s) [place] multivitamin 1 tab, PO, Active 11/19[facility] [place] Daily, 0 2018 Medical Refill(s) Center methocarbamol 1,000 mg=2 tab, Active 11/19[facility] [place] 500 mg oral PO, Q8H, 0 2018 Medical tablet Refill(s) Center LORazepam 0.5 0.5 mg=1 tab, Active [place] mg oral tablet PO, Q8H, PRN 2018 Medical Anxiety, 0 Center Refill(s) Lidocaine 3 patch, TOP, Active [facility] Hydrochloride Daily, Remove 2018 Medical 0.05 MG/MG after 12 hours, Center Transdermal 0 Refill(s) Patch [Lidoderm] Robaxin 1,000 mg, 2 No Longer [facility] tab, Route: PO, Active 2018 Medical Drug form: TAB, Center Q8H, Dosing Weight 127.027, kg, Start date: 11/17/17 16:00:00 CDT, Duration: 30 day, Stop date: 12/17/17 8:00:00 CDTNotes: (Same as:Robaxin) Oxycodone 10 mg, 2 tab, No Longer [facility] Hydrochloride 5 Route: PO, Drug Active 2018 Medical MG Oral Tablet form: TAB, Center Daily, Dosing Weight 127.027, kg, PRN Procedure, Start date: 11/17/17 13:06:00 CDT, Duration: 30 day, Stop date: 12/17/17 13:05:00 CDTNotes: (Same as: Roxicodone) Ativan 0.5 mg, 1 tab, No Longer [facility] Route: PO, Drug Active 2017 Medical form: TAB, Q8H, Center Dosing Weight 127.027, kg, PRN Anxiety, Start date: 11/17/17 10:18:00 CDT, Duration: 7 day, Stop date: 11/24/17 10:17:00 CDTNotes: (Same as: Ativan) Trazodone 50 mg, 1 tab, No Longer [facility] Hydrochloride Route: PO, Drug Active 2018 Medical 50 MG Oral form: TAB, Center Tablet Bedtime, Dosing Weight 127.027, kg, Start date: 11/16/17 21:00:00 CDT, Duration: 30 day, Stop date: 12/15/17 21:00:00 CDTNotes: (Same As: Desyrel) remove patch 3 patch, Route: No Longer [facility] TOP, Bedtime, Active 2017 Medical Drug form: Center ERFILM, Start date: 11/16/17 21:00:00 CDT, Duration: 30 day, Stop date: 12/15/17 21:00:00 CDTNotes: Remove patch 12 hours after application each day. Oxycodone 10 mg, 2 tab, Inactive [facility] Hydrochloride 5 Route: PO, Drug 2018 Medical MG Oral Tablet form: TAB, Center ONCE, Dosing Weight 127.027, kg, Start date: 11/16/17 17:01:00 CDT, Stop date: 11/16/17 17:01:00 CDTNotes: (Same as: Roxicodone) Celebrex 200 mg, 1 cap, No Longer [facility] Route: PO, Drug Active 2018 Medical form: CAP, BID, [place] Dosing Weight 127.027, kg, Start date: 11/16/17 17:00:00 CDT, Duration: 30 day, Stop date: 12/16/17 9:00:00 CDTNotes: NSAID. Please check indication. Not for seizure. (Same As: CeleBREX) Vancomycin 1,500 mg, 250 No Longer [facility] mL, Route: Active 2018 Medical IVPB, Drug Center form: INJ, [id number], Dosing Weight 127.27, kg, Start date: 11/16/17 16:00:00 CDT, Stop date: 11/21/17 8:00:00 CDT, ABX Indication: Skin/Soft Tissue InfectionNotes: TIME CRITICAL MEDICATION Same as: Vancocin-NS (premixed) Infusion rate 2001 mg: infuse over 2.5 hours Lidocaine 3 patch, Route: No Longer [place] Hydrochloride TOP, Daily, Active 2018 Medical 0.05 MG/MG Drug form: [place] Transdermal FILM, Start Patch date: 11/16/17 [Lidoderm] [...] as: Phenergan) Dilaudid 0.5 mg, 0.25 Inactive [place] mL, Route: IVP, 2017 Medical Drug form: INJ, Center ONCE, Dosing Weight 127.027, kg, Priority: NOW, Start date: 11/15/17 17:40:00 CDT, Stop date: 11/15/17 17:40:00 CDTNotes: Same as Dilaudid Tramadol 100 mg, 2 tab, No Longer [facility] Route: PO, Drug Active 2017 Medical form: TAB, Center Q6Hnow, Dosing Weight 127.027, kg, Start date: 11/15/17 17:00:00 CDT, Duration: 30 day, Stop date: 12/15/17 11:00:00 CDTNotes: Not to exceed 400mg/day. (Same As: Ultram) gabapentin 600 mg, 2 cap, No Longer [facility] Route: PO, Drug Active 2017 Medical form: CAP, Center Q8Hnow, Dosing Weight 127.027, kg, Start date: 11/15/17 17:00:00 CDT, Stop date: 12/15/17 9:00:00 CDTNotes: (Same as: Neurontin) Acetaminophen 1,000 mg, 2 No Longer [facility] tab, Route: PO, Active 2017 Medical Drug form: TAB, Center Q6Hnow, Dosing Weight 127.027, kg, Start date: 11/15/17 17:00:00 CDT, Duration: 30 day, Stop date: 12/15/17 11:00:00 CDTNotes: Max acetaminophen 4000 mg/day (4 gm/day). (Same as: Tylenol Extra Strength) Robaxin 500 mg, 1 tab, No Longer [facility] Route: PO, Drug Active 2017 Medical form: TAB, TID, Center Dosing Weight 127.027, kg, Start date: 11/15/17 17:00:00 CDT, Duration: 30 day, Stop date: 12/15/17 13:00:00 CDTNotes: (Same as:Robaxin) Oxycodone 5 mg, 1 tab, No Longer [facility] Hydrochloride 5 Route: PO, Drug Active [...] 325 MG / 0 Refill(s) Active 2018 [facility] Oxycodone Center Hydrochloride 10 MG Oral Tablet [Percocet 10/325] Dilaudid 0.5 mg, 0.25 Inactive [facility] mL, Route: IVP, 2017 Medical Drug form: INJ, Center ONCE, Start date: 11/15/17 11:01:00 CDT, Stop date: 11/15/17 11:01:00 CDT Phenergan 25 mg, 1 tab, Inactive [facility] Route: PO, Drug 2018 Medical form: [...] Docusate 100 mg, 1 cap, No Longer [facility] Route: PO, Drug Active 2018 Medical form: CAP, BID, Center Dosing Weight 127.27, kg, Start date: 11/15/17 9:00:00 CDT, Duration: 30 day, Stop date: 12/14/17 17:00:00 CDTNotes: (Same as: Colace) (Do Not Crush) Zinc Sulfate 220 mg, 1 cap, No Longer [facility] Route: PO, Drug Active 2018 Medical form: CAP, Center Daily, Dosing Weight 127.27, kg, Start date: 11/15/17 9:00:00 CDT, Duration: 30 day, Stop date: 12/14/17 9:00:00 CDTNotes: (Zinc sulfate capsule) - 220 mg Zinc sulfate=50 mg elemental zinc Same as Zinc Sulfate ascorbic acid 500 mg, 1 tab, No Longer [facility] Route: PO, Drug Active 2017 Medical form: TAB, BID, Center Dosing Weight 127.27, kg, Start date: 11/15/17 9:00:00 CDT, Duration: 30 day, Stop date: 12/14/17 17:00:00 CDTNotes: (Same as: Vitamin C) multivitamin 1 tab, Route: No Longer [facility] PO, Drug Form: Active 2018 Medical TAB, Dosing Center Weight 127.27, kg, Daily, Start date: 11/15/17 9:00:00 CDT, Duration: 30 day, Stop date: 12/14/17 9:00:00 CDTNotes: (Same as:Thera) WASTE: F/P - Black; E - Municipal Trash Bin Take with food. Naproxen 500 mg, 1 tab, Inactive [place] Route: PO, Drug 2017 Medical form: TAB, Center [id number], Dosing Weight 127.27, kg, Start date: 11/15/17 2:00:00 CDT, Duration: 30 day, Stop date: 12/14/17 14:00:00 CDTNotes: (Same as: Naprosyn) Take with food. Zosyn 3.375 gm, No Longer [facility] Route: IVPB, Active 2018 Medical Drug [...] Active 2017 Medical Drug form: INJ, Center [id number], Dosing Weight 127.27, kg, Consider for obese [...] Stop date: 12/15/17 1:45:00 CDTNotes: (Same as: [place] 325/5) Do not exceed 4gm/day of acetaminophen. [...] Benadryl) Magnesium 2 gm, 50 mL, Inactive [facility] Sulfate Route: IV, Drug 2017 Medical form: INJ, Center ONCE, Dosing Weight 127.273, kg, Priority: STAT, Start date: 11/14/17 23:26:00 CDT, Stop date: 11/14/17 23:26:00 CDTNotes: WASTE: F/P - Sink; E - Municipal Trash Bin Sodium Chloride 1,000 mL, 1000 Inactive [facility] 0.9% (Bolus) IV ml/hr, Infuse 2018 [...] Extra Strength) Rocephin 1 gm, Route: Inactive 05/04[facility] IVP, Drug form: 2018 Medical PDR/INJ, ONCE, Center Dosing Weight 127.273, kg, Priority: STAT, Start date: 11/14/17 21:21:00 CDT, Stop date: 11/14/17 21:21:00 CDT, ABX Indication: Urinary Tract InfectionNotes: (Same As: Rocephin). MEDICATION WASTE Product Size: 1000 mg Product Wasted: _0__ mg Morphine 4 mg, Route: Inactive 11/15[facility] IVP, ONCE, 2018 Medical Dosing Weight Center 127.273, kg, Priority: STAT, Start date: 11/14/17 19:05:00 CDT, Stop date: 11/14/17 19:05:00 CDT Benadryl 25 mg, 0.5 mL, Inactive 11/14[facility] Route: IVP, 2017 Medical Drug form: INJ, Center ONCE, Dosing Weight 127.273, kg, Priority: STAT, Start date: 11/14/17 18:14:00 CDT, Stop date: 11/14/17 18:14:00 CDTNotes: (Same as: Benadryl) Benadryl 50 mg, 2 cap, Inactive 11/14[facility] Route: PO, Drug 2017 Medical form: CAP, Center ONCE, Dosing Weight 127.273, kg, Priority: STAT, Start date: 11/14/17 17:56:00 CDT, Stop date: 11/14/17 17:56:00 CDTNotes: (Same as: Benadryl) Morphine 4 mg, 1 mL, Inactive 11/14[facility] Route: IVP, 2017 Medical Drug form: Center SOLN, ONCE, Dosing Weight 127.273, kg, Priority: STAT, Start date: 11/14/17 17:56:00 CDT, Stop date: 11/14/17 17:56:00 CDT Allergies, Adverse Reactions, Alerts Substance Category Reaction Severity Reaction Status Date Comments Source type Reported amoxicillin Assertion Drug Active [facility] morphine Assertion Drug Active [facility] Toradol Assertion Drug Active [facility] Minocin Assertion Drug Active [facility] Zofran Assertion Drug Active [facility] Levaquin Assertion Drug Active [facility] Bactrim Assertion Drug Active [facility] Immunizations Immunization Date Given Site Status Last Updated Comments Source Results Order Name Results Value Reference Date Interpretation Comments Source Range CHEM PANEL B/C Ratio 17 6 - 25 11/[address] CHEM PANEL Globulin 4.3 g/dL 2.7 - 4.2 11/[address] CHEM PANEL A/G Ratio 0.7 0.7 - 1.6 11/[address] CHEM PANEL AGAP 14.4 meq/L 10.0 - 11/19 [facility] 20.0 [facility] CHEM PANEL eGFR 113 11/19 Result Comment: The eGFR is calculated using the CKD-EPI formula. In most young, healthy individuals the eGFR will be >90 mL/ min/1.73m2. The eGFR declines with age. An eGFR of 60-89 may be normal in [facility] mL/min/1. some populations, particularly the elderly, for whom the CKD-EPI formula has not been extensively validated. Use of the eGFR is not recommended in the following populations: [address] Individuals with unstable creatinine concentrations, including [...] Phos 76 unit/L 39 - 136 11/[address] CHEM PANEL ALT 35 unit/L 0 - 65 11/[address] CHEM PANEL Albumin Lvl 2.8 g/dL 3.5 - 5.0 11/[address] CHEM PANEL Total Protein 7.1 g/dL 6.4 - 8.4 11/[address] CHEM PANEL Calcium Lvl 8.7 mg/dL 8.5 - 10.5 11/[address] CHEM PANEL AST 18 unit/L 0 - 37 11/[address] CHEM PANEL Bili Total 0.3 mg/dL 0.2 - 1.3 11/[address] CHEM PANEL Potassium Lvl 4.4 meq/L 3.5 - 5.1 11/[address] CHEM PANEL Chloride Lvl 109 meq/L 95 - [address] CHEM PANEL CO2 23 meq/L 24 - [address] CHEM PANEL Glucose Lvl 114 mg/dL 70 - [address] CHEM PANEL Creatinine 1.01 mg/dL 0.50 - 11/19 [facility] Lvl 1.40 /2017 [facility] CHEM PANEL BUN 17 mg/dL 7 - 22 11/[address] CHEM PANEL Sodium Lvl 142 meq/L 135 - [address] HEMATOLOGY Basophils 0.6 % 0.0 - 1.0 11/[address] HEMATOLOGY Segs-Bands # 4.8 K/CMM 1.5 - 8.1 11/[address] HEMATOLOGY Monocytes # 0.7 K/CMM 0.0 - 0.8 11/[address] HEMATOLOGY Lymphocytes # 1.9 K/CMM 1.0 - 5.5 11/[address] HEMATOLOGY Monocytes 9.4 % 2.0 - 12.0 11/[address] HEMATOLOGY Eosinophils # 0.2 K/CMM 0.0 - 0.5 11/[address] HEMATOLOGY Eosinophils 2.9 % 0.0 - 4.0 11/[address] HEMATOLOGY Segs 62.2 % 45.0 - 11/19 [facility] 75.0 [facility] HEMATOLOGY Lymphocytes 24.9 % 20.0 - 11/19 [facility] 40.0 [facility] HEMATOLOGY MCH 27.5 pg 27.0 - 11/19 [facility] 31.0 [facility] HEMATOLOGY MCV 85.3 fL 80.0 - 11/19 [facility] 94.0 [facility] HEMATOLOGY Hct 43.9 % 42.0 - 05 [facility] 54.0 [facility] HEMATOLOGY Hgb 14.2 g/dL 14.0 - 11/19 [facility] 18.0 [facility] HEMATOLOGY WBC 7.7 K/CMM 3.7 - 10.[address] HEMATOLOGY RBC 5.15 M/CMM 4.70 - 05 [place] 6.10 [facility] HEMATOLOGY MPV 8.4 fL 7.4 - 10.4 11/19 [facility] HEMATOLOGY MCHC 32.3 g/dL 32.0 - 11/19 [facility] 36.0 [facility] HEMATOLOGY RDW 17.3 % 11.5 - 11/19 [facility] 14.5 [facility] HEMATOLOGY Platelet 317 K/CMM 133 - 450 11/[address] CHEM PANEL Globulin 4.4 g/dL 2.7 - 4.2 11/[address] CHEM PANEL A/G Ratio 0.6 0.7 - 1.6 11/[address] [place] [address] CHEM PANEL B/C Ratio 17 6 - 25 11/18 2017 [facility] CHEM PANEL AGAP 11.3 meq/L 10.0 - 11/18 [facility] 20. [facility] CHEM PANEL eGFR 134 11/18 Result Comment: The eGFR is calculated using the CKD-EPI formula. In most young, healthy individuals the eGFR will be >90 mL/ min/1.73m2. The eGFR declines with age. An eGFR of 60-89 may be normal in [facility] mL/min/1. some populations, particularly the elderly, for whom the CKD-EPI formula has not been extensively validated. Use of the eGFR is not recommended in the following populations: [address] Individuals with unstable creatinine concentrations, including [...] PANEL Creatinine 0.84 mg/dL 0.50 - 11/18 [facility] Lvl 1.40 [facility] CHEM PANEL Sodium Lvl 142 meq/L 135 - 145 11/18 [facility] CHEM PANEL Glucose Lvl 99 mg/dL 70 - 99 11/[address] CHEM PANEL BUN 14 mg/dL 7 - 22 11/[address] CHEM PANEL Alk Phos 79 unit/L 39 - 136 11/[address] CHEM PANEL Bili Total 0.3 mg/dL 0.2 - 1.3 11/18 [facility] [address] [place] [address] CHEM PANEL AST 14 unit/L 0 - 37 11/[address] [place] [address] CHEM PANEL ALT 43 unit/L 0 - 65 11/[address] CHEM PANEL Total Protein 7.1 g/dL 6.4 - 8.4 11/[address] CHEM PANEL Albumin Lvl 2.7 g/dL 3.5 - 5.0 11/[address] CHEM PANEL Calcium Lvl 9.2 mg/dL 8.5 - 10.5 11/[address] CHEM PANEL CO2 21 meq/L 24 - 32 11/[address] CHEM PANEL Potassium Lvl 4.3 meq/L 3.5 - 5.1 11/[address] CHEM PANEL Chloride Lvl 114 meq/L 95 - 109 11/[address] HEMATOLOGY MCHC 32.5 g/dL 32.0 - 11/18 [facility] 36.0 [facility] HEMATOLOGY RDW 17.5 % 11.5 - 11/18 [facility] 14.5 [facility] HEMATOLOGY Platelet 400 K/CMM 133 - 450 11/[address] HEMATOLOGY MPV 8.5 fL 7.4 - 10.4 11/[address] HEMATOLOGY WBC 6.6 K/CMM 3.7 - 10.4 11/[address] HEMATOLOGY RBC 5.17 M/CMM 4.70 - 11/18 [facility] 6.10 [facility] HEMATOLOGY MCV 86.1 fL 80.0 - 11/18 [facility] 94.0 [facility] HEMATOLOGY Hct 44.5 % 42.0 - 11/18 54.0 [facility] HEMATOLOGY MCH 28.0 pg 27.0 - 11/18 [facility] 31.0 [facility] HEMATOLOGY Hgb 14.5 g/dL 14.0 - 11/18 [facility] 18.0 [facility] HEMATOLOGY Lymphocytes # 1.7 K/CMM 1.0 - 5.5 11/[address] HEMATOLOGY Monocytes # 0.7 K/CMM 0.0 - 0.[address] HEMATOLOGY Eosinophils # 0.2 K/CMM 0.0 - 0.5 11/[address] HEMATOLOGY Lymphocytes 26.1 % 20.0 - 11/18 [facility] 40.0 [facility] HEMATOLOGY Segs 59.3 % 45.0 - 11/18 [facility] 75.0 [facility] HEMATOLOGY Basophils 0.8 % 0.0 - 1.0 11/[address] HEMATOLOGY Monocytes 10.5 % 2.0 - 12.0 11/[address] HEMATOLOGY Eosinophils 3.3 % 0.0 - 4.0 11/[address] HEMATOLOGY Segs-Bands # 3.9 K/CMM 1.5 - 8.1 11/[address] CHEM PANEL Glucose Lvl 74 mg/dL 70 - 99 11/[address] CHEM PANEL BUN 12 mg/dL 7 - 22 11/[address] CHEM PANEL Creatinine 0.75 mg/dL 0.50 - 11/17 [facility] Lvl 1.40 /2017 [facility] CHEM PANEL eGFR 140 11/17 Result Comment: The eGFR is calculated using the CKD-EPI formula. In most young, healthy individuals the eGFR will be >90 mL/ min/1.73m2. The eGFR declines with age. An eGFR of 60-89 may be normal in [facility] mL/min/1.7 some populations, particularly the elderly, for whom the CKD-EPI formula has not been extensively validated. Use of the eGFR is not recommended in the following populations: [address] Individuals with unstable creatinine concentrations, including [...] Lvl 2.9 g/dL 3.5 - 5.0 11/[address] CHEM PANEL Globulin 4.4 g/dL 2.7 - 4.2 11/[address] CHEM PANEL A/G Ratio 0.7 0.7 - 1.6 11/[address] CHEM PANEL Bili Total 0.4 mg/dL 0.2 - 1.3 11/[address] CHEM PANEL Alk Phos 71 unit/L 39 - 136 11/[address] CHEM PANEL AST 15 unit/L 0 - 37 05 [facility] [address] [place] [address] CHEM PANEL ALT 28 unit/L 0 - [address] CHEM PANEL Potassium Lvl 4.4 meq/L 3.5 - 5.1 11/[address] CHEM PANEL Sodium Lvl 147 meq/L 135 - [address] CHEM PANEL CO2 25 meq/L 24 - [address] CHEM PANEL Chloride Lvl 114 meq/L 95 - [address] CHEM PANEL B/C Ratio 16 6 - 25 11/[address] CHEM PANEL Calcium Lvl 8.7 mg/dL 8.5 - 10.5 11/[address] CHEM PANEL AGAP 12.4 meq/L 10.0 - 11/17 [facility] 20.0 [facility] CHEM PANEL Total Protein 7.3 g/dL 6.4 - 8.4 11/[address] HEMATOLOGY Platelet 345 K/CMM 133 - 450 05 [facility] [address] [place] [address] HEMATOLOGY MPV 8.7 fL 7.4 - 10.4 11/[address] HEMATOLOGY WBC 6.9 K/CMM 3.7 - 10.4 11/[address] HEMATOLOGY RBC 5.30 M/CMM 4.70 - 11/17 [facility] 6.10 [facility] HEMATOLOGY MCHC 32.8 g/dL 32.0 - 11/17 36.0 [facility] HEMATOLOGY MCH 27.9 pg 27.0 - 11/17 31.0 [facility] HEMATOLOGY Hgb 14.8 g/dL 14.0 - 11/17 [facility] 18.0 [facility] HEMATOLOGY MCV 85.0 fL 80.0 - 11/17 [facility] 94.0 [facility] HEMATOLOGY Hct 45.1 % 42.0 - 11/17 [facility] 54.0 [facility] HEMATOLOGY RDW 17.5 % 11.5 - 11/17 [facility] 14.5 [facility] HEMATOLOGY Eosinophils # 0.2 K/CMM 0.0 - 0.5 05 [facility] [address] [place] [address] HEMATOLOGY Lymphocytes # 2.0 K/CMM 1.0 - 5.5 05/[address] HEMATOLOGY Monocytes # 0.7 K/CMM 0.0 - 0.8 11/[address] HEMATOLOGY Eosinophils 2.4 % 0.0 - 4.[address] HEMATOLOGY Basophils 0.6 % 0.0 - 1.0 11/[address] HEMATOLOGY Segs-Bands # 4.0 K/CMM 1.5 - 8.1 11/[address] HEMATOLOGY Monocytes 10.4 % 2.0 - 12.0 11/[address] HEMATOLOGY RBC Morph Normal 11/17 [facility] (11/17/17 2:07 AM) [place] HEMATOLOGY Segs 58.1 % 45.0 - 11/17 [facility] 75.0 [facility] HEMATOLOGY Plt Morph Normal 11/[address] (11/17/17 2:07 AM) [place] HEMATOLOGY Lymphocytes 28.5 % 20.0 - 11/17 [facility] 40.0 [facility] HEMATOLOGY Basophils # 0.1 K/CMM 0.0 - 0.2 11/[address] HEMATOLOGY Polychrom Moderate None [facility] CHEM PANEL Magnesium Lvl 2.3 mg/dL 1.8 - 2.4 11/[address] CHEM PANEL Phosphorus 3.5 mg/dL 2.5 - 4.5 11/[address] HEMATOLOGY PT 14.0 s 12.0 - 11/15 [facility] 14.7 [facility] HEMATOLOGY PTT 37.6 s 22.9 - 11/15 [facility] 35.8 [facility] HEMATOLOGY INR 1.08 0.85 - 11/15 [place] 1.17 [facility] IMMUNOLOGY C-REACTIVE 13.1 mg/L <=2.9 mg/L 11/15 [facility] PROTEIN [facility] IMMUNOLOGY Prealbumin 25.2 mg/dL 18.0 - 05/ [place] 45.0 [facility] CHEM PANEL Lactic Acid 0.9 mMol/L 0.5 - 2.2 11/15 [facility] Lvl /2017 [facility] HEMATOLOGY Sed Rate 5 mm/h 0 - 15 11/[address] IMMUNOLOGY C-REACTIVE 15.8 mg/L <=2.9 mg/L 05 [facility] PROTEIN /2017 [facility] HEMATOLOGY PT 13.0 s 12.0 - 11/15 [place] 14.7 /2017 [facility] HEMATOLOGY INR 0.98 0.85 - 11/15 [place] 1.17 [facility] HEMATOLOGY PTT 33.2 s 22.9 - 11/15 [place] 35.8 [facility] BLOOD BANK Antibody Scrn Negative 11/14 [facility] RESULTS [facility] (11/14/17 6:51 PM) [place] BLOOD BANK ABO/Rh AB POS 11/14 [facility] RESULTS [facility] URINE AND UA 0.2 EU/dL 0.1 - 1.0 11/14 [facility] Urobilinogen /2017 [facility] URINE AND UA Nitrite Negative Negative 11/14 [facility] (11/14/17 6:35 PM) [place] URINE AND UA Glucose Negative Negative 11/14 [facility] (11/14/17 6:35 PM) [place] URINE AND UA Ketones Negative Negative 11/14 [facility] Medical *NA* [place] (11/14/17 6:35 PM) URINE AND UA Bili Negative Negative 11/14 [facility] *NA* [place] (11/14/17 6:35 PM) URINE AND UA Blood Trace Negative 11/14 [facility] *ABN* [place] (11/14/17 6:35 PM) URINE AND UA Leuk Est Small Negative 11/14 [facility] *ABN* [place] (11/14/17 6:35 PM) URINE AND UA Spec Grav 1.020 <=1.030 11/14 [facility]2017 [facility] URINE AND UA pH 6.0 5.0 - 8.0 11/14 [facility] STOOL [address] URINE AND UA Color Yellow Yellow 11/14 [facility] *NA* [place] (11/14/17 6:35 PM) URINE AND UA Protein Trace Negative 11/14 [facility] *ABN* [place] (11/14/17 6:35 PM) URINE AND UA Turbidity Slight Cloudy Clear 11/14 [facility] STOOL [facility] (11/14/17 6:35 PM) [place] URINE AND UA Hyal Cast 0-2 0 - 2 11/14 [facility] STOOL [facility] (11/14/17 6:35 PM) [place] URINE AND UA Bacteria Occasional None Seen 11/14 [facility] STOOL /HPF /HPF /2017 [facility] URINE AND UA RBC 11-20 /HPF 0 - 2 11/[address] URINE AND UA Sq Epi Occasional Few /LPF 11/14 [facility] STOOL /LPF /[address] [place] [address] URINE AND UA WBC 51-100 None Seen 11/14 [facility] STOOL /HPF /HPF /2017 [facility] HEMATOLOGY Basophils # 0.1 K/CMM 0.0 - 0.2 11/[address] HEMATOLOGY Polychrom Slight 11/[address] HEMATOLOGY Plt Morph Normal 11/14 [facility]2017 [facility] (11/14/17 6:20 PM) [place] Brain shunt Brain shunt EXAM: SKULL 2 VIEWS 11/14 - [facility] series DX series DX - [facility] EXAM: CHEST 2 VIEWS This report was dictated by a Cushion Maker Hand /Fellow. I have personally reviewed the images [...] EXAM: CT BRAIN WITHOUT CONTRAST 11/14 - [facility] contrast CT contrast CT /2017 - Medical This report was dictated by a Cushion Maker Hand/Fellow. I have personally reviewed the images as Center well as the Resident's interpretation and agree with the findings. 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 TECHNIQUE: Axial CT images of the brain were obtained. Sagittal and coronal reformats. IV contrast: None. 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 Also present is a right frontal approach MENTAL HEALTH PROGRAM DIRECTOR shunt with tip in the left lateral [...] EXAM: XR CHEST 1 VIEW 11/14 - [facility] DX DX /2018 - Medical This report was dictated by a Cushion Maker Hand/Fellow. I have personally reviewed the images as [...] Source Temperature Oral (F) 97.2 F 11/19/2017 [facility] Systolic (mm Hg) 127 11/19/2017 [facility] Diastolic (mm Hg) 85 11/19/2017 [facility] Heart Rate 81 11/19/2017 [facility] Respitory Rate 18 11/19/2017 [facility] Heart Rate 90 11/19/2017 [facility] Systolic (mm Hg) 106 11/19/2017 [facility] Diastolic (mm Hg) 71 11/19/2017 [facility] Respitory Rate 18 11/19/2017 [facility] Temperature Oral (F) 98.1 F 11/19/2017 [facility] Respitory Rate 18 11/19/2017 [facility] Systolic (mm Hg) 168 11/19/2017 [facility] Diastolic (mm Hg) 107 11/19/2017 [facility] Heart Rate 87 11/19/2017 [facility] Temperature Oral (F) 98.1 F 11/19/2017 [facility] Weight 127.027 11/18/2017 [facility] Weight 127.027 11/17/2017 [facility] Weight 127.027 11/15/2017 [facility] BMI Calculated 48.16 11/15/2017 [facility] Height 162.56 cm 11/15/2017 [facility] Height 149.86 cm 11/14/2017 [facility] BMI Calculated 56.67 11/14/2017 [facility] Encounters Location Location Encounter Encounter Reason Attending ADM DC Status Source Details Type Number For Provider Date Date [facility] [id number] Alban 11/14 11/19 [facility] Jason Vasquezh [facility] Procedures Procedure Code Date Perfomer Comments Source Cholecystectomy [id number] [facility] Shunt of cerebral [id number] [facility] ventricle to [facility] extracranial site Center
--- OUTSIDE RECORDS SUMMARY | 2018-05-21 22:50 | XMS REPORT ---
:1985 Author Organization [facility] Address [address] [place] [address] [address]. [address] [place] [address] Care Team Providers Name Role Phone JAQUELIN GENAO Unavailable Unavailable Problems This patient has no known problems. Allergies, Adverse Reactions, Alerts This patient has no known allergies or adverse reactions. Medications This patient has no known medications. Results Test Description Test Time Test Comments Text Results Atomic Results Result Comments BLOOD CULTURE 2016-12-28 16:22:00 Test Item Value Reference Range Comments CULTURE (BEAKER) (test qqke=9164) No growth in 5 days BLOOD [id number] 16:22:00 Test Item Value Reference Range Comments CULTURE (BEAKER) (test ljtx=3939) No growth in 5 days (MANUAL DIFFERENTIAL)2016-12-25 22:29:00 Test Item Value Reference Range Comments TOTAL COUNTED (BEAKER) (test bnrd=7241) WBC MORPHOLOGY (BEAKER) (test ttqf=149) Normal PLT MORPHOLOGY (BEAKER) (test jjqk=163) Normal RBC MORPHOLOGY (BEAKER) (test zfbo=951) Normal CBC W/PLT COUNT & AUTO [id number] 22:28:00 Test Item Value Reference Range Comments WHITE BLOOD CELL COUNT (BEAKER) (test suku=376) 7.3 K/ L 4.0-10.0 RED BLOOD CELL COUNT (BEAKER) (test htoz=679) 5.09 M/ L 4.20-5.80 HEMOGLOBIN (BEAKER) (test qtqk=992) 13.0 GM/DL 13.0-16.8 HEMATOCRIT (BEAKER) (test zjyb=286) 42.3 % 40.0-50.0 MEAN CORPUSCULAR VOLUME (BEAKER) (test vqqa=084) 83.0 fL 82.0-98.0 MEAN CORPUSCULAR HEMOGLOBIN (BEAKER) (test 25.6 pg 27.0-33.0 dlwh=815) MEAN CORPUSCULAR HEMOGLOBIN CONC (BEAKER) (test 30.8 GM/DL 32.0-36.0 jrwu=083) RED CELL DISTRIBUTION WIDTH (BEAKER) (test 18.0 % 10.3-14.2 wdwk=697) PLATELET COUNT (BEAKER) (test tanb=471) 331 K/CU MM 150-430 MEAN PLATELET VOLUME (BEAKER) (test aeub=564) 8.5 fL 6.5-10.5 NUCLEATED RED BLOOD CELLS (BEAKER) (test 0 /100 WBC 0-0 ghjw=951) NEUTROPHILS RELATIVE PERCENT (BEAKER) (test 65 % scxb=301) LYMPHOCYTES RELATIVE PERCENT (BEAKER) (test 23 % yhmx=448) MONOCYTES RELATIVE PERCENT (BEAKER) (test 8 % jczj=190) EOSINOPHILS RELATIVE PERCENT (BEAKER) (test 3 % wvcv=625) BASOPHILS RELATIVE PERCENT (BEAKER) (test 1 % lxqg=512) NEUTROPHILS ABSOLUTE COUNT (BEAKER) (test 4.75 K/ L 1.80-8.00 fcmr=146) LYMPHOCYTES ABSOLUTE COUNT (BEAKER) (test 1.68 K/ L 1.48-4.50 yuzn=939) MONOCYTES ABSOLUTE COUNT (BEAKER) (test 0.55 K/ L 0.00-1.30 cjrc=208) EOSINOPHILS ABSOLUTE COUNT (BEAKER) (test 0.24 K/ L 0.00-0.50 xtel=218) BASOPHILS ABSOLUTE COUNT (BEAKER) (test 0.05 K/ L 0.00-0.20 utcj=585) 0.000.520.000.000.000.00BASI METABOLIC [id number] 11:11:00 Test Item Value Reference Range Comments SODIUM (BEAKER) (test 138 meq/L 136-145 itry=851) POTASSIUM (BEAKER) (test 4.0 meq/L 3.5-5.1 oonx=185) CHLORIDE (BEAKER) (test 108 meq/L 98-107 ogwv=133) CO2 (BEAKER) (test 23 meq/L 22-29 xgin=111) BLOOD UREA NITROGEN 11 mg/dL 7-21 (BEAKER) (test tczi=453) CREATININE (BEAKER) (test 0.74 mg/dL 0.57-1.25 udrx=826) GLUCOSE RANDOM (BEAKER) 124 mg/dL 70-105 (test xfpw=921) CALCIUM (BEAKER) (test 8.9 mg/dL 8.4-10.2 zrms=345) EGFR (BEAKER) (test 150 mL/min/1.73 sq m ESTIMATED GFR IS NOT meou=9523) ACCURATE CREATININE CLEARANCE IN PREDICTING GLOMERULAR FILTRATION RATE. ESTIMATED GFR IS NOT APPLICABLE FOR DIALYSIS PATIENTS. URINE [id number] 09:56:00 Test Item Value Reference Range Comments CULTURE (BEAKER) (test xcov=4831) <10,000 col/mL skin marilee COMPREHENSIVE METABOLIC [id number] 08:49:00 Test Item Value Reference Range Comments TOTAL PROTEIN (BEAKER) 7.3 gm/dL 6.0-8.3 (test stgr=304) ALBUMIN (BEAKER) (test 3.3 g/dL 3.5-5.0 bsvz=3233) ALKALINE PHOSPHATASE 89 U/L 40-150 (BEAKER) (test vyqw=754) BILIRUBIN TOTAL (BEAKER) 1.4 mg/dL 0.2-1.2 (test nngm=298) SODIUM (BEAKER) (test 137 meq/L 136-145 wxdx=858) POTASSIUM (BEAKER) (test 3.7 meq/L 3.5-5.1 than=364) CHLORIDE (BEAKER) (test 108 meq/L 98-107 mcru=311) CO2 (BEAKER) (test 17 meq/L 22-29 vabw=071) BLOOD UREA NITROGEN 12 mg/dL 7-21 (BEAKER) (test ivey=029) CREATININE (BEAKER) (test 0.78 mg/dL 0.57-1.25 bxfv=628) GLUCOSE RANDOM (BEAKER) 119 mg/dL 70-105 (test kfmd=242) CALCIUM (BEAKER) (test 8.6 mg/dL 8.4-10.2 pmhu=717) AST (SGOT) (BEAKER) (test 13 U/L 5-34 yanr=791) ALT (SGPT) (BEAKER) (test 28 U/L 6-55 pubj=384) EGFR (BEAKER) (test 141 mL/min/1.73 sq ESTIMATED GFR IS NOT xqyj=2343) m ACCURATE CREATININE CLEARANCE IN PREDICTING GLOMERULAR FILTRATION RATE. ESTIMATED GFR IS NOT APPLICABLE FOR DIALYSIS PATIENTS. CBC W/PLT COUNT & AUTO [id number] 08:46:00 Test Item Value Reference Range Comments WHITE BLOOD CELL COUNT (BEAKER) (test jghy=750) 9.4 K/ L 4.0-10.0 RED BLOOD CELL COUNT (BEAKER) (test vkkk=331) 4.79 M/ L 4.20-5.80 HEMOGLOBIN (BEAKER) (test zuhh=768) 12.8 GM/DL 13.0-16.8 HEMATOCRIT (BEAKER) (test zwik=285) 40.0 % 40.0-50.0 MEAN CORPUSCULAR VOLUME (BEAKER) (test rriy=979) 83.4 fL 82.0-98.0 MEAN CORPUSCULAR HEMOGLOBIN (BEAKER) (test 26.7 pg 27.0-33.0 yxxc=720) MEAN CORPUSCULAR HEMOGLOBIN CONC (BEAKER) (test 32.0 GM/DL 32.0-36.0 atmm=616) RED CELL DISTRIBUTION WIDTH (BEAKER) (test 18.2 % 10.3-14.2 rzwl=263) PLATELET COUNT (BEAKER) (test aacp=517) 313 K/CU MM 150-430 MEAN PLATELET VOLUME (BEAKER) (test yuki=695) 8.6 fL 6.5-10.5 NUCLEATED RED BLOOD CELLS (BEAKER) (test 0 /100 WBC 0-0 lpgw=700) NEUTROPHILS RELATIVE PERCENT (BEAKER) (test 70 % nnms=964) LYMPHOCYTES RELATIVE PERCENT (BEAKER) (test 16 % nrwl=773) MONOCYTES RELATIVE PERCENT (BEAKER) (test 12 % sspr=726) EOSINOPHILS RELATIVE PERCENT (BEAKER) (test 1 % efbh=490) BASOPHILS RELATIVE PERCENT (BEAKER) (test 1 % xrri=767) NEUTROPHILS ABSOLUTE COUNT (BEAKER) (test 6.54 K/ L 1.80-8.00 jipf=712) LYMPHOCYTES ABSOLUTE COUNT (BEAKER) (test 1.50 K/ L 1.48-4.50 pdsq=560) MONOCYTES ABSOLUTE COUNT (BEAKER) (test 1.13 K/ L 0.00-1.30 moeu=708) EOSINOPHILS ABSOLUTE COUNT (BEAKER) (test 0.13 K/ L 0.00-0.50 zidd=274) BASOPHILS ABSOLUTE COUNT (BEAKER) (test 0.06 K/ L 0.00-0.20 kgro=833) 0.00URINALYSIS W/ [id number] 20:36:00 Test Item Value Reference Range Comments COLOR (BEAKER) (test kwtm=925) Yellow CLARITY (BEAKER) (test cbgv=252) Hazy SPECIFIC GRAVITY UA (BEAKER) (test uglh=455) 1.012 1.001-1.035 PH UA (BEAKER) (test hdvm=727) 5.5 5.0-8.0 PROTEIN UA (BEAKER) (test cbic=184) 100 mg/dL Negative GLUCOSE UA (BEAKER) (test pelg=306) Negative Negative KETONES UA (BEAKER) (test zvva=542) Negative Negative BILIRUBIN UA (BEAKER) (test oxho=494) Negative Negative BLOOD UA (BEAKER) (test byhq=320) Moderate Negative NITRITE UA (BEAKER) (test agws=018) Negative Negative LEUKOCYTE ESTERASE UA (BEAKER) (test gnml=590) Large Negative UROBILINOGEN UA (BEAKER) (test leci=581) 3.0 mg/dL 0.2-1.0 RBC UA (BEAKER) (test xnxg=231) 19 /HPF WBC UA (BEAKER) (test ssxi=019) 182 /HPF SOURCE(BEAKER) (test flup=6556) BASIC METABOLIC [id number] 17:00:00 Test Item Value Reference Range Comments SODIUM (BEAKER) (test 140 meq/L 136-145 udyb=171) POTASSIUM (BEAKER) (test 3.7 meq/L 3.5-5.1 jbel=290) CHLORIDE (BEAKER) (test 112 meq/L 98-107 fwel=812) CO2 (BEAKER) (test 17 meq/L 22-29 bgyf=294) BLOOD UREA NITROGEN 23 mg/dL 7-21 (BEAKER) (test kkgy=746) CREATININE (BEAKER) (test 1.00 mg/dL 0.57-1.25 jjqv=525) GLUCOSE RANDOM (BEAKER) 102 mg/dL 70-105 (test ajab=569) CALCIUM (BEAKER) (test 8.7 mg/dL 8.4-10.2 kvav=952) EGFR (BEAKER) (test 106 mL/min/1.73 sq m ESTIMATED GFR IS NOT tsoe=4458) ACCURATE CREATININE CLEARANCE IN PREDICTING GLOMERULAR FILTRATION RATE. ESTIMATED GFR IS NOT APPLICABLE FOR DIALYSIS PATIENTS. Specimen slightly ictericCBC W/PLT COUNT & AUTO [id number] 12:18 :00 Test Item Value Reference Range Comments WHITE BLOOD CELL COUNT (BEAKER) (test kalj=823) 16.4 K/ L 4.0-10.0 RED BLOOD CELL COUNT (BEAKER) (test kvvu=794) 5.22 M/ L 4.20-5.80 HEMOGLOBIN (BEAKER) (test xbaz=739) 14.4 GM/DL 13.0-16.8 HEMATOCRIT (BEAKER) (test ozjk=907) 42.9 % 40.0-50.0 MEAN CORPUSCULAR VOLUME (BEAKER) (test fwnx=656) 82.2 fL 82.0-98.0 MEAN CORPUSCULAR HEMOGLOBIN (BEAKER) (test 27.5 pg 27.0-33.0 vdjv=055) MEAN CORPUSCULAR HEMOGLOBIN CONC (BEAKER) (test 33.5 GM/DL 32.0-36.0 ktyd=947) RED CELL DISTRIBUTION WIDTH (BEAKER) (test 16.2 % 10.3-14.2 qtys=948) PLATELET COUNT (BEAKER) (test lvkv=278) 329 K/CU MM 150-430 MEAN PLATELET VOLUME (BEAKER) (test vrxr=261) 8.2 fL 6.5-10.5 NUCLEATED RED BLOOD CELLS (BEAKER) (test 0 /100 WBC 0-0 tklx=116) NEUTROPHILS RELATIVE PERCENT (BEAKER) (test 83 % lktf=801) LYMPHOCYTES RELATIVE PERCENT (BEAKER) (test 7 % cgew=748) MONOCYTES RELATIVE PERCENT (BEAKER) (test 9 % yvml=655) EOSINOPHILS RELATIVE PERCENT (BEAKER) (test 0 % mdkh=564) BASOPHILS RELATIVE PERCENT (BEAKER) (test 0 % iljj=108) NEUTROPHILS ABSOLUTE COUNT (BEAKER) (test 1.62 K/ L 1.80-8.00 jtjt=080) LYMPHOCYTES ABSOLUTE COUNT (BEAKER) (test 1.15 K/ L 1.48-4.50 vnqg=912) MONOCYTES ABSOLUTE COUNT (BEAKER) (test 1.56 K/ L 0.00-1.30 pekt=955) EOSINOPHILS ABSOLUTE COUNT (BEAKER) (test 0.01 K/ L 0.00-0.50 zryb=467) BASOPHILS ABSOLUTE COUNT (BEAKER) (test 0.02 K/ L 0.00-0.20 vcxf=011) (MANUAL DIFFERENTIAL)2016-12-23 12:18:00 Test Item Value Reference Range Comments TOTAL COUNTED (BEAKER) (test usvy=2241) WBC MORPHOLOGY (BEAKER) (test vdwq=167) Normal PLT MORPHOLOGY (BEAKER) (test czbc=285) Normal RBC MORPHOLOGY (BEAKER) (test rflr=228) Normal
--- OUTSIDE RECORDS SUMMARY | 2018-05-21 22:50 | XMS REPORT ---
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
--- OUTSIDE RECORDS SUMMARY | 2018-05-21 22:50 | XMS REPORT ---
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 DRILLER (ventriculoperitoneal) shunt Z98.2 Active status Medications Medication Code Code Instructions Start End Status Dosage System Date Date Tylenol with [facility] 22813532576 300-60 MG Active 1 tablet as Codeine #4 Orally every 6 needed hrs Macrobid [facility] 79913004461 100 MG Orally Active 1 capsule every 12 hrs with food Pantoprazole ND 05223745528 40 MG Orally Active 1 tablet Sodium Once a day Collagenase [facility] [address]-28 250 UNIT/GM Active 1 application Externally to affected Once a day area Results No Known Results Summary Purpose [employer] Submission
--- OUTSIDE RECORDS SUMMARY | 2018-05-21 22:50 | XMS REPORT ---
[...] hydrocephalus Problem Bipolar depression F31.30 Active Assessment DRY COLOR TESTER (ventriculoperitoneal) shunt Z98.2 Active status Problem Depression [...] spina bifida with Q05.2 Active hydrocephalus Problem DRY COLOR TESTER (ventriculoperitoneal) shunt Z98.2 Active status Problem Nicotine dependence F17.200 Active Medications Medication Code Code Instructions Start End Status Dosage System Date Date Collagenase [facility] [address]-36 250 UNIT/GM Active 1 application Externally to affected Once a day area Macrobid [facility] 47948471355 100 MG Orally Active 1 capsule every 12 hrs with food Tylenol with [facility] 53021909173 300-60 MG Active 1 tablet as Codeine #4 Orally every 6 needed hrs Citalopram [facility] 00834191525 10 MG Orally January Active 1 tablet Hydrobromide Once a day 2017 Pantoprazole [facility] 21371268846 40 MG Orally Active 1 tablet Sodium Once a day Seroquel [facility] 28704899659 25 MG Orally January Active 1 tablet Once a day at 16, bedtime 2017 Results No Known Results Summary Purpose [employer] Submission
--- OUTSIDE RECORDS SUMMARY | 2018-05-21 22:50 | XMS REPORT ---
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 DESIGNER (ventriculoperitoneal) shunt Z98.2 Active status Problem Episodic tension-type headache, not G44.219 Active intractable Problem Lumbar spina bifida with Q05.2 Active hydrocephalus Problem Foot ulcer L97.509 Active Problem Nicotine dependence F17.200 Active Problem Dependence on wheelchair Z99.3 Active Medications Medication Code Code Instructions Start End Status Dosage System Date Date Macrobid [facility] 38638208183 100 MG Orally Active 1 capsule every 12 hrs with food Tylenol with [facility] 06932703345 300-60 MG Active 1 tablet as Codeine #4 Orally every 6 needed hrs Pantoprazole ND 89386681667 40 MG Orally Active 1 tablet Sodium Once a day Citalopram [facility] 16981812496 10 MG Orally Active 1 tablet Hydrobromide Once a day Collagenase [facility] [address]-61 250 UNIT/GM Active 1 application Externally to affected Once a day area Seroquel [facility] 34159541949 25 MG Orally Active 1 tablet Once a day at bedtime Results No Known Results Summary Purpose [employer] Submission
--- OUTSIDE RECORDS SUMMARY | 2018-05-21 22:50 | XMS REPORT ---
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
[2018-05-22] MEDS ORDERED: PROMETHAZINE 25 MG/ML VIAL ONE (00:33)
[2018-05-22] MEDS ORDERED: HYDROMORPHONE HCL 1 MG/ML INJ ONE (00:34)
[2018-05-22 01:01] LABS: Absolute Lymphocytes (CBC) 2.1 K/uL (0.7-4.9); Absolute Monocytes 0.8 K/uL (0.1-1.3); Absolute Neutrophil 7.6 K/uL (1.8-8.0); Basophils % 0.5 % (0-1.3); Eosinophils % 2.1 % (0-4.4); Lymphocytes % 19.4 % (15.3-44.8); MCH 27.4 pg (27.0-35.0); MCV 81.6 fL (80-100); MPV 8.2 fL (7.6-11.3); Monocytes % 7.6 % (3.3-12.3); RBC Red Blood Cell Count 5.76 M/uL (4.33-5.43)
[2018-05-22 01:02] LABS: Protime INR 1.02
[2018-05-22 01:59] LABS: ALT/SGPT 24 U/L (12-78); AST/SGOT 15 U/L (15-37); Albumin 3.4 g/dL (3.4-5.0); Alkaline Phosphatase 105 U/L (45-117); BUN Blood Urea Nitrogen 16 mg/dL (7-18); Bicarbonate 27 mmol/L (21-32); Bilirubin Total 0.4 mg/dL (0.2-1.0); Glucose Level 90 mg/dL (74-106); Potassium 4.1 mmol/L (3.5-5.1); Protein, Total 8.7 g/dL (6.4-8.2); Sodium Level 138 mmol/L (136-145)
--- NOTE | 2018-05-22 02:46 | ER ---
Nurse's Notes [facility] Name: Roland Feldman Jr Age: 32 yrs Sex: Male : 1985 Arrival Date: 05/21/2018 Time: 22:48 Bed 17 Private MD: Diagnosis: Headache Presentation: 05/21 22:40 Presenting complaint: EMS states: Pt reports headache x 2 days that is worsening, pt ea complaining of nausea. Transition of care: patient was received from another setting of care (long-term care [facility]. Onset of symptoms was May 21, 2018. Risk Assessment: Do you want to hurt yourself or someone else? Patient reports no desire to harm self or others. Initial Sepsis Screen: Does the patient meet any 2 criteria? No. Patient's initial sepsis screen is negative. Does the patient have a suspected source of infection? Yes: Skin breakdown/wound. Care prior to arrival: None. 22:40 Acuity: YUKI 3 ea 22:48 Method Of Arrival: EMS: [facility] ea Triage Assessment: 22:58 Headache History: The patient has had previous headaches. General: Appears in no ea apparent distress. Behavior is calm, cooperative, appropriate for age. Pain: Complains of pain in right side of head Pain currently is 8 out of 10 on a pain scale. Quality of pain is described as aching, pressure, Pain began 2-3 days ago. Also complains of nausea. Neuro: Level of Consciousness is awake, alert, obeys commands, Oriented to person, place, time, situation, Speech is normal, Facial symmetry appears normal. Respiratory: Airway is patent Respiratory effort is even, unlabored, Respiratory pattern is regular, symmetrical, Breath sounds are clear bilaterally. GI: Bowel sounds present X 4 quads. Derm: Skin is fragile, multiple chronic decubitus ulcers Skin is dry, Skin is normal, Skin temperature is warm. Historical: - Allergies: 22:55 Amoxicillin; ea 22:55 Bactrim; ea 22:55 Ciprofloxacin; ea 22:55 CLAVULANIC ACID; ea 22:55 Doxycycline; ea 22:55 Levofloxacin; ea 22:55 Morphine; ea 22:55 Toradol; ea 22:55 TRIMETHOPRIM; ea 22:55 Vancomycin; ea 22:55 Zofran; ea - Home Meds: 22:55 clindamycin HCl 300 mg Oral cap 1 cap every 6 hours [Active]; oxycodone-acetaminophen ea 10-325 mg Oral tab 1 tab every 6 hours [Active]; tramadol 50 mg Oral tab 2 tabs every 6 hours [Active]; - PMHx: 22:55 Asthma; spina bifida; GERD; Hypertension; Hydrocephalus; decubitus ulcers on feet; ea cluster headaches; Cerebral Palsy; - Immunization history:: Adult Immunizations up to date. - Social history:: Smoking status: Patient uses tobacco products, smokes one-half pack cigarettes per day. - Ebola Screening: : No symptoms or risks identified at this time. - Family history:: not pertinent, pertinent for. - Hospitalizations: : No recent hospitalization is reported. Screenin:57 Abuse screen: Denies threats or abuse. Nutritional screening: No deficits noted. ea Tuberculosis screening: No symptoms or risk factors identified. Fall Risk None identified. Assessment: 22:58 Reassessment: see triage assessment. ea 05/22 00:55 Reassessment: Patient and/or family updated on plan of care and expected duration. Pain ea level reassessed. Patient is alert, oriented x 3, equal unlabored respirations, skin warm/dry/pink. 01:27 Reassessment: Patient and/or family updated on plan of care and expected duration. Pain ea level reassessed. Pt resting with eyes closed, respirations even and unlabored, chest expansions even and symmetrical. No s/s of pain or discomfort noted at this time. 02:21 Reassessment: Patient and/or family updated on plan of care and expected duration. Pain ea level reassessed. Patient is alert, oriented x 3, equal unlabored respirations, skin warm/dry/pink. Provider at bedside updating pt on plan of care. 02:41 Reassessment: Report called to Rosalee DISLA at [facility]. ea 03:25 Reassessment: Patient and/or family updated on plan of care and expected duration. Pain ea level reassessed. Patient is alert, oriented x 3, equal unlabored respirations, skin warm/dry/pink. [facility] at facility for transfer. Vital Signs: 05/21 22:40 BP 135 / 92; Pulse 88; Resp 18; Temp 97.2; Pulse Ox 97% on R/A; Weight 131.54 kg; ea Height 4 ft. 11 in. (149.86 cm); Pain 8/10; 23:15 BP 121 / 78; Pulse 87; Resp 18; Pulse Ox 97% on R/A; ea 05/22 01:33 BP 112 / 90; Pulse 98; Resp 18; Pulse Ox 96% on R/A; ea 02:35 BP 115 / 68; Pulse 80; Resp 18; Pulse Ox 98% ; ea 03:15 BP 112 / 70; Pulse 90; Resp 18; Pulse Ox 98% on R/A; ea 05/21 22:40 Body Mass Index 58.57 (131.54 kg, 149.86 cm) ea ED Course: 05/21 22:40 Arm band placed on right wrist. Patient placed in an exam room, on a stretcher, on ea pulse oximetry. 22:40 Patient has correct armband on for positive identification. Bed in low position. Call ea light in reach. Side rails up X2. 22:48 Patient arrived in ED. ea 22:51 Triage completed. ea 22:51 Alban Warner MD is Attending Physician. wa 23:58 Елена Funez RN is Primary Nurse. ea 05/22 00:22 Shuntogram XRAY In Process Unspecified. EDMS 00:45 CT completed. Pt tolerated procedure poorly. Patient moved to CT Patient moved to radiology via stretcher. Patient moved back from CT. Patient moved back from radiology. 00:45 Inserted saline lock: 22 gauge in left antecubital area, using aseptic technique. Blood ea collected. 00:55 CT Head Brain wo Cont In Process Unspecified. EDMS 02:42 No provider procedures requiring assistance completed. ea 03:00 Patient transferred, IV remains in place. ea Administered Medications: 00:50 Drug: Phenergan 12.5 mg Route: IVP; Site: left antecubital; ea 01:34 Follow up: Response: No adverse reaction; Marked relief of symptoms; Pain is decreased ea 01:35 Follow up: Response: No adverse reaction; Pain is decreased ea 00:50 Drug: Dilaudid 1 mg Route: IVP; Site: left antecubital; ea 01:35 Follow up: Response: No adverse reaction; Pain is decreased ea Outcome: 02:45 ER care complete, transfer ordered by . wa 03:00 Instructed on the need for transfer. ea 03:30 Transferred by ground [facility] to [facility], Transfer form completed. ea 03:30 Condition: stable 03:32 Patient left the ED. ea Signatures: Dispatcher [employer] Ren Burleson Elena, RN RN ea Appiah, William, MD MD wa Corrections: (The following items were deleted from the chart) 03:45 11 22:58 Derm: Skin is dry, Skin is normal, Skin temperature is warm manuela roy
--- NOTE | 2018-05-22 02:46 | EDPHYS ---
Physician Documentation [facility] Name: Roland Feldman Jr Age: 32 yrs Sex: Male : 1985 Arrival Date: 05/21/2018 Time: 22:48 Bed 17 Private MD: ED Physician Alban Warner HPI: 05/22 02:08 This 32 yrs old Black Male presents to ER via EMS with complaints of Headache. wa 02:08 The patient complains of pain to the diffuse. The patient describes the headache as wa aching, a pressure, throbbing. Onset: The symptoms/episode began/occurred 2 day(s) ago. Associated signs and symptoms: Pertinent positives: nausea, Photophobia Pertinent negatives: altered mental status, fever, neck stiffness. Severity of symptoms: At its worst the pain was severe, in the emergency department the pain is actually worse. Headache History: The patient has had previous headaches and this one is similar to previous episodes. The symptoms are alleviated by nothing. the symptoms are aggravated by nothing. The patient has experienced similar episodes in the past, several times. The patient has not recently seen a physician. 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 states his neurosurgeon is Dr. Noriega at [facility]. Historical: - Allergies: 05/21 22:55 Amoxicillin; ea 22:55 Bactrim; ea 22:55 Ciprofloxacin; ea 22:55 CLAVULANIC ACID; ea 22:55 Doxycycline; ea 22:55 Levofloxacin; ea 22:55 Morphine; ea 22:55 Toradol; ea 22:55 TRIMETHOPRIM; ea 22:55 Vancomycin; ea 22:55 Zofran; ea - Home Meds: 22:55 clindamycin HCl 300 mg Oral cap 1 cap every 6 hours [Active]; oxycodone-acetaminophen ea 10-325 mg Oral tab 1 tab every 6 hours [Active]; tramadol 50 mg Oral tab 2 tabs every 6 hours [Active]; - PMHx: 22:55 Asthma; spina bifida; GERD; Hypertension; Hydrocephalus; decubitus ulcers on feet; ea cluster headaches; Cerebral Palsy; - Immunization history:: Adult Immunizations up to date. - Social history:: Smoking status: Patient uses tobacco products, smokes one-half pack cigarettes per day. - Ebola Screening: : No symptoms or risks identified at this time. - Family history:: not pertinent, pertinent for. - Hospitalizations: : No recent hospitalization is reported. ROS: 05/22 02:11 Constitutional: Negative for fever, chills, and weight loss, Eyes: Negative for injury, wa pain, redness, and discharge, ENT: Negative for injury, pain, and discharge, Neck: Negative for injury, pain, and swelling, Cardiovascular: Negative for chest pain, palpitations, and edema, Respiratory: Negative for shortness of breath, cough, wheezing, and pleuritic chest pain, Abdomen/GI: Negative for abdominal pain, nausea, vomiting, diarrhea, and constipation, Back: Negative for injury and pain, : Negative for injury, bleeding, discharge, and swelling, MS/Extremity: Negative for injury and deformity, Skin: Negative for injury, rash, and discoloration. Neuro: Positive for headache, Negative for altered mental status. All other systems are negative. Exam: 02:11 Constitutional: This is a well developed, well nourished patient who is awake, alert, wa and in no acute distress. Head/Face: Normocephalic, atraumatic. Eyes: Pupils equal round and reactive to light, extra-ocular motions intact. Lids and lashes normal. Conjunctiva and sclera are non-icteric and not injected. Cornea within normal limits. Periorbital areas with no swelling, redness, or edema. ENT: Nares patent. No nasal discharge, no septal abnormalities noted. Tympanic membranes are normal and external auditory canals are clear. Oropharynx with no redness, swelling, or masses, exudates, or evidence of obstruction, uvula midline. Mucous membranes moist. Neck: Trachea midline, no thyromegaly or masses palpated, and no cervical lymphadenopathy. Supple, full range of motion without nuchal rigidity, or vertebral point tenderness. No Meningismus. Cardiovascular: Regular rate and rhythm with a normal S1 and S2. No gallops, murmurs, or rubs. Normal PMI, no JVD. No pulse deficits. Respiratory: Lungs have equal breath sounds bilaterally, clear to auscultation and percussion. No rales, rhonchi or wheezes noted. No increased work of breathing, no retractions or nasal flaring. Abdomen/GI: Soft, non-tender, with normal bowel sounds. No distension or tympany. No guarding or rebound. No evidence of tenderness throughout. Back: No spinal tenderness. No costovertebral tenderness. Full range of motion. Skin: Warm, dry with normal turgor. Normal color with no rashes, no lesions, and no evidence of cellulitis. MS/ Extremity: Pulses equal, no cyanosis. Neurovascular intact. Full, normal range of motion. 02:11 Neuro: Orientation: is normal, Mentation: is normal, Cranial nerves: grossly normal, Motor: is normal. Vital Signs: 05/21 22:40 BP 135 / 92; Pulse 88; Resp 18; Temp 97.2; Pulse Ox 97% on R/A; Weight 131.54 kg; ea Height 4 ft. 11 in. (149.86 cm); Pain 8/10; 23:15 BP 121 / 78; Pulse 87; Resp 18; Pulse Ox 97% on R/A; ea 05/22 01:33 BP 112 / 90; Pulse 98; Resp 18; Pulse Ox 96% on R/A; ea 02:35 BP 115 / 68; Pulse 80; Resp 18; Pulse Ox 98% ; ea 03:15 BP 112 / 70; Pulse 90; Resp 18; Pulse Ox 98% on R/A; ea 05/21 22:40 Body Mass Index 58.57 (131.54 kg, 149.86 cm) ea MDM: 05/21 22:52 Patient medically screened. nv 05/22 02:12 Differential diagnosis: pt with SENIOR ACCOUNT DIRECTOR shunt with ELISE and photophobia. will eval shunt for wa malfunction. pain control. reassess. 02:13 Data reviewed: vital signs, nurses notes, lab test result(s). Test interpretation: by nv ED physician or midlevel provider: labs wnl. Head CT: SENIOR ACCOUNT DIRECTOR shunt tubes are in place without evidence of developing hydrocephalus. 02:41 Response to treatment: ELISE improved. . Physician consultation: spoke with nrsg Dr. Mary Lou arellano at [facility]. accepted for transfer and eval . 05/21 23:28 Order name: CBC with Diff; Complete Time: 02: nv 05/21 23:28 Order name: CMP; Complete Time: 02: nv 05/21 23:28 Order name: CT Head Brain wo Cont nv 05/21 23:28 Order name: Shuntogram XRAY nv 05/21 23:28 Order name: PT-INR; Complete Time: 02: nv 05/21 23:28 Order name: IV Start; Complete Time: 00:55 wa Administered Medications: 00:50 Drug: Phenergan 12.5 mg Route: IVP; Site: left antecubital; ea 01:34 Follow up: Response: No adverse reaction; Marked relief of symptoms; Pain is decreased ea 01:35 Follow up: Response: No adverse reaction; Pain is decreased ea 00:50 Drug: Dilaudid 1 mg Route: IVP; Site: left antecubital; ea 01:35 Follow up: Response: No adverse reaction; Pain is decreased ea Disposition: 05/22/18 02:45 Transfer ordered to [facility]. Diagnosis is Headache. - Reason for transfer: Higher level of care. - Accepting physician is Dr. Mary Lou Schneider. - Condition is Stable. - Problem is new. - Symptoms have improved. Signatures: Dispatcher [employer] EDлЕена Solorio RN RN ea Appiah, William, MD MD wa Corrections: (The following items were deleted from the chart) 03:32 02:45 05/22/2018 02:45 Transfer ordered to [facility]. ea Diagnosis is Headache. Reason for transfer: Higher level of care. Accepting physician is Dr. Mary Lou Schneider. Condition is Stable. Problem is new. Symptoms have improved. eileen
[2018-05-22 03:45] VITALS: BP 112/90; O2SAT 96
--- NOTE | 2018-05-22 07:03 | RAD REPORT ---
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 COMPARISON: CT head November 2017 TECHNIQUE: Axial 5 mm thick images of the head were obtained without IV contrast. All CT scans are performed using dose optimization technique as appropriate and may include automated exposure control or mA/KV adjustment according to patient size. FINDINGS: No intracranial hemorrhage, mass, edema or shift of mid-line structures. No acute infarcti on changes seen. There are 2 MUSIC WORKER shunt tube is identifiable. 1 shunt tube enters from a lateral right frontal approach. Tip is in the midline frontal horn lateral ventricle region. Second shunt tube ente rs posterior right parietal with the tip posterior third ventricle region. Positioning matches the Ma y examination. No ventriculomegaly or other finding to indicate shunt malfunction. Ventricular size m atches the November study. Ventricles are decompressed. Brain parenchyma is similar to the comparison. Mastoid air cells and visualized portions of the paranasal sinuses are clear. No acute bony findings. IMPRESSION: Negative non-contrast CT head examination for acute finding. No significant change from November 2017.
--- NOTE | 2018-05-22 10:00 | RAD REPORT ---
EXAM DESCRIPTION: RAD - Shuntogram - 05/22/2018 12:21 am CLINICAL HISTORY: Shunt series, headache, spina bifida COMPARISON: CT abdomen and pelvis March 05, 2018, CT head May 22, 2018 TECHNIQUE: AP and lateral views of the skull were obtained along with AP and lateral views of the ne ck. Chest, abdomen and pelvis images obtained as well. FINDINGS: Patient has lateral right frontal and posterior right parietal shunt tube is in place. Nec k and chest imaging shows old shunt tubing overlying the right side of the chest. No suspicious bend or kink of the tubing. The right parietal shunt appears to be discontinuous with the right frontal sh unt representing the active shunt tube. Lung galindo are clear. Heart size is magnified by shallow inspiration, large body habitus and techniq ue. No acute finding of the abdomen or pelvis. Underlying deformities of the lower lumbar spine and b ilateral hip joints noted. IMPRESSION: No evidence for shunt tube disruption or malfunction.
== END 2018-05-22 03:32 | disposition short-term general hospital (02) ==
LOC: ER 22:45
DX: R51 Headache (principal); I10 Essential (primary) hypertension; Q05.9 Spina bifida, unspecified; Z98.2 Presence of cerebrospinal fluid drainage device; F17.210 Nicotine dependence, cigarettes, uncomplicated; Z88.1 Allergy status to other antibiotic agents; Z88.3 Allergy status to other anti-infective agents; Z88.5 Allergy status to narcotic agent; Z88.6 Allergy status to analgesic agent; Z88.8 Allergy status to other drugs, medicaments and biological substances
CPT/HCPCS: 36415; 49427; 70450; 75809; 80053; 85025; 85610; 96374; 96375; 99285; J1170; J2550

== ENCOUNTER 2018-06-07 19:36 | Emergency (ER) | payer OTHER ==
--- OUTSIDE RECORDS SUMMARY | 2018-06-07 19:38 | XMS REPORT | Clinical Summary ---
:1985 Author Organization [employer] Address [address] [place] [address] Care Team Providers Name Role Phone Rishi [...] Not on file Results Not on fileafter 06/06/2017 Insurance Payer Benefit Plan / Group Subscriber ID Type Phone Address MEDICAID - MEDICAID MEDICAID [employer] xxxxxxxxx Medicaid [facility] CARE Non-Contracted Advance Directives For more information, please contact:[facility] Vasquez[place], [place] [phone] Code Status Date Activated Date Inactivated Comments Full Code 12/23/2016 1:36 AM 12/25/2016 8:43 PM This code status was determined by: Patient
--- OUTSIDE RECORDS SUMMARY | 2018-06-07 19:39 | XMS REPORT | Continuity of Care Document ---
:1985 Author Organization Interface Problems Problem Status Onset Classification Date Comments Source Date Reported HEADACHE Active 05/22/[address] SHUNT MALFUNCTION Active 11/15/[address] ACUTE HEADACHE Active 11/15/[address] Acute pain Active Problem 11/22/2017 [facility] Asthma Resolved Problem 11/22/2017 [facility] Bronchitis Resolved Problem 11/22/2017 [facility] Cerebral palsy Resolved Problem 11/22/2017 [facility] Headache Active Problem 11/22/2017 [facility] Hydrocephalus Resolved Problem 11/22/2017 [facility] Osteomyelitis Resolved Problem 11/22/2017 [facility] HEADACHE Active [facility] Medications Medication Details Route Status Patient Ordering Order Source Instructions Provider Date Docusate Sodium 100 mg=1 cap, Active [place] 100 MG Oral PO, BID, 0 2018 Medical Capsule Refill(s) [place] Zosyn 0 Refill(s) Active [facility] 2018 Medical [place] celecoxib 200 200 mg=1 cap, Active 11/19[facility] [place] mg oral capsule PO, BID, 0 2018 Medical Refill(s) Center ascorbic acid 500 mg=1 tab, Active 11/19[facility] [place] PO, BID, 0 2018 Medical Refill(s) Center acetaminophen 1,000 mg=2 tab, Active 11/19[facility] [place] 500 mg oral PO, Q6Hnow, 0 2018 Medical tablet Refill(s) Center Oxycodone 5 mg=1 tab, PO, Active 11/19[facility] [place] Hydrochloride 5 Q4H, PRN Pain 2018 Medical MG Oral Tablet Score 4-6, 0 Center Refill(s) zinc sulfate 220 mg=1 cap, Active 11/19[facility] [place] 220 mg oral PO, Daily, 0 2018 Medical capsule Refill(s) Center multivitamin 1 tab, PO, Active 11/19[facility] [place] Daily, 0 2018 Medical Refill(s) Center methocarbamol 1,000 mg=2 tab, Active 11/19[facility] [place] 500 mg oral PO, Q8H, 0 2018 Medical tablet Refill(s) [place] LORazepam 0.5 0.5 mg=1 tab, Active [facility] mg oral tablet PO, Q8H, PRN 2018 Medical Anxiety, 0 Center Refill(s) Lidocaine 3 patch, TOP, Active [facility] Hydrochloride Daily, Remove 2018 Medical 0.05 MG/MG after 12 hours, Center Transdermal 0 Refill(s) Patch [Lidoderm] Robaxin 1,000 mg, 2 No Longer [facility] tab, Route: PO, Active 2017 Medical Drug form: TAB, Center Q8H, Dosing Weight 127.027, kg, Start date: 11/17/17 16:00:00 CDT, Duration: 30 day, Stop date: 12/17/17 8:00:00 CDTNotes: (Same as:Robaxin) Oxycodone 10 mg, 2 tab, No Longer [facility] Hydrochloride 5 Route: PO, Drug Active 2018 Medical MG Oral Tablet form: TAB, Center Daily, Dosing Weight 127.027, kg, PRN Procedure, Start date: 11/17/17 13:06:00 CDT, Duration: 30 day, Stop date: 12/17/17 13:05:00 CDTNotes: (Same as: Roxicodone) Ativan 0.5 mg, 1 tab, No Longer [facility] Route: PO, Drug Active 2017 Medical form: TAB, Q8H, Center Dosing Weight 127.027, kg, PRN Anxiety, Start date: 11/17/17 10:18:00 CDT, Duration: 7 day, Stop date: 11/24/17 10:17:00 CDTNotes: (Same as: Ativan) Trazodone 50 mg, 1 tab, No Longer [facility] Hydrochloride Route: PO, Drug Active 2018 Medical 50 MG Oral form: TAB, Center Tablet Bedtime, Dosing Weight 127.027, kg, Start date: 11/16/17 21:00:00 CDT, Duration: 30 day, Stop date: 12/15/17 21:00:00 CDTNotes: (Same As: Desyrel) remove patch 3 patch, Route: No Longer [facility] TOP, Bedtime, Active 2017 Medical Drug form: Center ERFILM, Start date: 11/16/17 21:00:00 CDT, Duration: 30 day, Stop date: 12/15/17 21:00:00 CDTNotes: Remove patch 12 hours after application each day. Oxycodone 10 mg, 2 tab, Inactive [facility] Hydrochloride 5 Route: PO, Drug 2018 Medical MG Oral Tablet form: TAB, Center ONCE, Dosing Weight 127.027, kg, Start date: 11/16/17 17:01:00 CDT, Stop date: 11/16/17 17:01:00 CDTNotes: (Same as: Roxicodone) Celebrex 200 mg, 1 cap, No Longer [facility] Route: PO, Drug Active 2018 Medical form: CAP, BID, [place] Dosing Weight 127.027, kg, Start date: 11/16/17 17:00:00 CDT, Duration: 30 day, Stop date: 12/16/17 9:00:00 CDTNotes: NSAID. Please check indication. Not for seizure. (Same As: CeleBREX) Vancomycin 1,500 mg, 250 No Longer [facility] mL, Route: Active 2018 Medical IVPB, Drug Center form: INJ, [id number], Dosing Weight 127.27, kg, Start date: 11/16/17 16:00:00 CDT, Stop date: 11/21/17 8:00:00 CDT, ABX Indication: Skin/Soft Tissue InfectionNotes: TIME CRITICAL MEDICATION Same as: Vancocin-NS (premixed) Infusion rate 2001 mg: infuse over 2.5 hours Lidocaine 3 patch, Route: No Longer [place] Hydrochloride TOP, Daily, Active 2018 Medical 0.05 MG/MG Drug form: [place] Transdermal FILM, Start Patch date: 11/16/17 [Lidoderm] [...] as: Phenergan) Dilaudid 0.5 mg, 0.25 Inactive [place] mL, Route: IVP, 2017 Medical Drug form: INJ, Center ONCE, Dosing Weight 127.027, kg, Priority: NOW, Start date: 11/15/17 17:40:00 CDT, Stop date: 11/15/17 17:40:00 CDTNotes: Same as Dilaudid Tramadol 100 mg, 2 tab, No Longer [facility] Route: PO, Drug Active 2017 Medical form: TAB, Center Q6Hnow, Dosing Weight 127.027, kg, Start date: 11/15/17 17:00:00 CDT, Duration: 30 day, Stop date: 12/15/17 11:00:00 CDTNotes: Not to exceed 400mg/day. (Same As: Ultram) gabapentin 600 mg, 2 cap, No Longer [facility] Route: PO, Drug Active 2017 Medical form: CAP, Center Q8Hnow, Dosing Weight 127.027, kg, Start date: 11/15/17 17:00:00 CDT, Stop date: 12/15/17 9:00:00 CDTNotes: (Same as: Neurontin) Acetaminophen 1,000 mg, 2 No Longer [facility] tab, Route: PO, Active 2018 Medical Drug form: TAB, Center Q6Hnow, Dosing Weight 127.027, kg, Start date: 11/15/17 17:00:00 CDT, Duration: 30 day, Stop date: 12/15/17 11:00:00 CDTNotes: Max acetaminophen 4000 mg/day (4 gm/day). (Same as: Tylenol Extra Strength) Robaxin 500 mg, 1 tab, No Longer [facility] Route: PO, Drug Active 2017 Medical form: TAB, TID, Center Dosing Weight 127.027, kg, Start date: 11/15/17 17:00:00 CDT, Duration: 30 day, Stop date: 12/15/17 13:00:00 CDTNotes: (Same as:Robaxin) Oxycodone 5 mg, 1 tab, No Longer [facility] Hydrochloride 5 Route: PO, Drug Active [...] 325 MG / 0 Refill(s) Active 2018 [facility] Oxycodone [place] Hydrochloride 10 MG Oral Tablet [Percocet 10/325] Dilaudid 0.5 mg, 0.25 Inactive [facility] mL, Route: IVP, 2018 Medical Drug form: INJ, Center ONCE, Start date: 11/15/17 11:01:00 CDT, Stop date: 11/15/17 11:01:00 CDT Phenergan 25 mg, 1 tab, Inactive [facility] Route: PO, [...] Docusate 100 mg, 1 cap, No Longer [facility] Route: PO, Drug Active 2017 Medical form: CAP, BID, Center Dosing Weight 127.27, kg, Start date: 11/15/17 9:00:00 CDT, Duration: 30 day, Stop date: 12/14/17 17:00:00 CDTNotes: (Same as: Colace) (Do Not Crush) Zinc Sulfate 220 mg, 1 cap, No Longer [facility] Route: PO, Drug Active 2018 Medical form: CAP, Center Daily, Dosing Weight 127.27, kg, Start date: 11/15/17 9:00:00 CDT, Duration: 30 day, Stop date: 12/14/17 9:00:00 CDTNotes: (Zinc sulfate capsule) - 220 mg Zinc sulfate=50 mg elemental zinc Same as Zinc Sulfate ascorbic acid 500 mg, 1 tab, No Longer [place] Route: PO, Drug Active 2017 Medical form: TAB, BID, Center Dosing Weight 127.27, kg, Start date: 11/15/17 9:00:00 CDT, Duration: 30 day, Stop date: 12/14/17 17:00:00 CDTNotes: (Same as: Vitamin C) multivitamin 1 tab, Route: No Longer [place] PO, Drug Form: Active 2018 Medical TAB, Dosing Center Weight 127.27, kg, Daily, Start date: 11/15/17 9:00:00 CDT, Duration: 30 day, Stop date: 12/14/17 9:00:00 CDTNotes: (Same as:Thera) WASTE: F/P - Black; E - Municipal Trash Bin Take with food. Naproxen 500 mg, 1 tab, Inactive [place] Route: PO, Drug 2017 Medical form: TAB, Center [id number], Dosing Weight 127.27, kg, Start date: 11/15/17 2:00:00 CDT, Duration: 30 day, Stop date: 12/14/17 14:00:00 CDTNotes: (Same as: Naprosyn) Take with food. Zosyn 3.375 gm, No Longer [facility] Route: IVPB, Active 2018 Medical Drug [...] Active 2017 Medical Drug form: INJ, Center [id number], Dosing Weight 127.27, kg, Consider for obese [...] Longer [facility] 0.9% IVP, Drug Form: Active 2018 Medical INJ, Dosing Center Weight 127.27, kg, [...] Stop date: 12/15/17 1:45:00 CDTNotes: (Same as: [place] 325/5) Do not exceed 4gm/day of acetaminophen. [...] Benadryl) Magnesium 2 gm, 50 mL, Inactive [facility] Sulfate Route: IV, Drug 2017 Medical form: INJ, Center ONCE, Dosing Weight 127.273, kg, Priority: STAT, Start date: 11/14/17 23:26:00 CDT, Stop date: 11/14/17 23:26:00 CDTNotes: WASTE: F/P - Sink; E - Municipal Trash Bin Sodium Chloride 1,000 mL, 1000 Inactive [place] 0.9% (Bolus) IV ml/hr, Infuse 2018 Medical [...] Extra Strength) Rocephin 1 gm, Route: Inactive 11/15[facility] IVP, Drug form: 2018 Medical PDR/INJ, ONCE, Center Dosing Weight 127.273, kg, Priority: STAT, Start date: 11/14/17 21:21:00 CDT, Stop date: 11/14/17 21:21:00 CDT, ABX Indication: Urinary Tract InfectionNotes: (Same As: Rocephin). MEDICATION WASTE Product Size: 1000 mg Product Wasted: _0__ mg Morphine 4 mg, Route: Inactive 11/15[facility] IVP, ONCE, 2018 Medical Dosing Weight Center 127.273, kg, Priority: STAT, Start date: 11/14/17 19:05:00 CDT, Stop date: 11/14/17 19:05:00 CDT Benadryl 25 mg, 0.5 mL, Inactive 11/14[facility] Route: IVP, 2017 Medical Drug form: INJ, Center ONCE, Dosing Weight 127.273, kg, Priority: STAT, Start date: 11/14/17 18:14:00 CDT, Stop date: 11/14/17 18:14:00 CDTNotes: (Same as: Benadryl) Benadryl 50 mg, 2 cap, Inactive 11/14[facility] Route: PO, Drug 2017 Medical form: CAP, Center ONCE, Dosing Weight 127.273, kg, Priority: STAT, Start date: 11/14/17 17:56:00 CDT, Stop date: 11/14/17 17:56:00 CDTNotes: (Same as: Benadryl) Morphine 4 mg, 1 mL, Inactive 11/14[facility] Route: IVP, 2017 Medical Drug form: Center SOLN, ONCE, Dosing Weight 127.273, kg, Priority: STAT, Start date: 11/14/17 17:56:00 CDT, Stop date: 11/14/17 17:56:00 CDT Allergies, Adverse Reactions, Alerts Substance Category Reaction Severity Reaction Status Date Comments Source type Reported amoxicillin Assertion Drug Active [facility] morphine Assertion Drug Active [facility] Toradol Assertion Drug Active [facility] Minocin Assertion Drug Active [facility] Zofran Assertion Drug Active [facility] Levaquin Assertion Drug Active [facility] Bactrim Assertion Drug Active [facility] Immunizations Immunization Date Given Site Status Last Updated Comments Source Results Order Name Results Value Reference Date Interpretation Comments Source Range Brain-Outsi Brain-Outside EXAM: CT BRAIN WITHOUT CONTRAST -- OUTSIDE CONSULT 05/22 - [facility] de Consult Consult CT - Medical CT This report was dictated by a Lens Cutter/Fellow. I have personally reviewed the images as Center well as the Resident's interpretation and agree with the findings. 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 205 images. Imaging was performed at [facility] on 05/22/2018. IV contrast: None. FINDINGS: Overall unchanged exam. Right transfrontal ventriculostomy catheter is unchanged in position. The ventricles remain dysmorphic and are unchanged in size and configuration. The abandoned right transparie darian catheter is unchanged. Stigmata of Chiari II malformation. There is no intracranial hemorrhage or extra-axial collection. No new parenchymal density abnormality. No mass or mass effect. Unchanged from the tonsillar herniation. The density of the larger intracranial sinuses is normal. IMPRESSION: Unchanged examination compared to 11/14/2017 The final report agrees with the preliminary report by the radiology teacher. CHEM PANEL B/C Ratio 17 6 - 25 11/[address] CHEM PANEL Globulin 4.3 g/dL 2.7 - 4.2 11/[address] CHEM PANEL A/G Ratio 0.7 0.7 - 1.6 11/[address] CHEM PANEL AGAP 14.4 meq/L 10.0 - 11/19 [facility] 20.0 [facility] CHEM PANEL eGFR 113 11/19 Result Comment: The eGFR is calculated using the CKD-EPI formula. In most young, healthy individuals the eGFR will be >90 mL/ min/1.73m2. The eGFR declines with age. An eGFR of 60-89 may be normal in [facility] mL/min/1. some populations, particularly the elderly, for whom the CKD-EPI formula has not been extensively validated. Use of the eGFR is not recommended in the following populations: [address] Individuals with unstable creatinine concentrations, including [...] Phos 76 unit/L 39 - 136 11/[address] CHEM PANEL ALT 35 unit/L 0 - 65 11/[address] CHEM PANEL Albumin Lvl 2.8 g/dL 3.5 - 5.0 11/[address] CHEM PANEL Total Protein 7.1 g/dL 6.4 - 8.4 11/[address] CHEM PANEL Calcium Lvl 8.7 mg/dL 8.5 - 10.5 11/[address] CHEM PANEL AST 18 unit/L 0 - 37 11/[address] CHEM PANEL Bili Total 0.3 mg/dL 0.2 - 1.3 11/[address] CHEM PANEL Potassium Lvl 4.4 meq/L 3.5 - 5.1 11/[address] CHEM PANEL Chloride Lvl 109 meq/L 95 - 109 11/[address] CHEM PANEL CO2 23 meq/L 24 - 32 11/[address] CHEM PANEL Glucose Lvl 114 mg/dL 70 - 99 11/[address] CHEM PANEL Creatinine 1.01 mg/dL 0.50 - 11/19 [facility] Lvl 1.40 /2017 [facility] CHEM PANEL BUN 17 mg/dL 7 - 22 11/[address] CHEM PANEL Sodium Lvl 142 meq/L 135 - 145 11/[address] HEMATOLOGY Basophils 0.6 % 0.0 - 1.0 11/[address] HEMATOLOGY Segs-Bands # 4.8 K/CMM 1.5 - 8.1 05/ [address] [place] [address] HEMATOLOGY Monocytes # 0.7 K/CMM 0.0 - 0.[address] HEMATOLOGY Lymphocytes # 1.9 K/CMM 1.0 - 5.[address] HEMATOLOGY Monocytes 9.4 % 2.0 - 12.0 / [address] HEMATOLOGY Eosinophils # 0.2 K/CMM 0.0 - 0.5 11/[address] HEMATOLOGY Eosinophils 2.9 % 0.0 - 4.0 05/ [address] HEMATOLOGY Segs 62.2 % 45.0 - 11/19 [facility] 75.0 [facility] HEMATOLOGY Lymphocytes 24.9 % 20.0 - 11/19 [facility] 40.0 [facility] HEMATOLOGY MCH 27.5 pg 27.0 - 11/19 [facility] 31.0 [facility] HEMATOLOGY MCV 85.3 fL 80.0 - 11/19 [facility] 94.0 [facility] HEMATOLOGY Hct 43.9 % 42.0 - 11/19 [place] 54.0 [facility] HEMATOLOGY Hgb 14.2 g/dL 14.0 - 11/19 [place] 18.0 [facility] HEMATOLOGY WBC 7.7 K/CMM 3.7 - 10.4 11/19 [facility] HEMATOLOGY RBC 5.15 M/CMM 4.70 - 11/19 [place] 6.10 [facility] HEMATOLOGY MPV 8.4 fL 7.4 - 10.4 11/[address] HEMATOLOGY MCHC 32.3 g/dL 32.0 - 11/19 [place] 36.0 [facility] HEMATOLOGY RDW 17.3 % 11.5 - 05 [facility] 14.5 [facility] HEMATOLOGY Platelet 317 K/CMM 133 - [address] CHEM PANEL Globulin 4.4 g/dL 2.7 - 4.2 11/[address] CHEM PANEL A/G Ratio 0.6 0.7 - 1.6 11/[address] CHEM PANEL B/C Ratio 17 6 - [address] CHEM PANEL AGAP 11.3 meq/L 10.0 - 11/18 [facility] 20.0 [facility] CHEM PANEL eGFR 134 11/18 Result Comment: The eGFR is calculated using the CKD-EPI formula. In most young, healthy individuals the eGFR will be >90 mL/ min/1.73m2. The eGFR declines with age. An eGFR of 60-89 may be normal in [facility] mL/min/1.7 some populations, particularly the elderly, for whom the CKD-EPI formula has not been extensively validated. Use of the eGFR is not recommended in the following populations: [address] Individuals with unstable creatinine concentrations, including [...] PANEL Creatinine 0.84 mg/dL 0.50 - 11/18 [facility] Lvl 1.40 [facility] CHEM PANEL Sodium Lvl 142 meq/L 135 - 145 11/[address] CHEM PANEL Glucose Lvl 99 mg/dL 70 - 99 11/[address] CHEM PANEL BUN 14 mg/dL 7 - 22 11/[address] CHEM PANEL Alk Phos 79 unit/L 39 - 136 11/[address] CHEM PANEL Bili Total 0.3 mg/dL 0.2 - 1.3 11/[address] CHEM PANEL AST 14 unit/L 0 - 37 11/[address] CHEM PANEL ALT 43 unit/L 0 - 65 11/[address] CHEM PANEL Total Protein 7.1 g/dL 6.4 - 8.4 11/[address] CHEM PANEL Albumin Lvl 2.7 g/dL 3.5 - 5.0 11/[address] CHEM PANEL Calcium Lvl 9.2 mg/dL 8.5 - 10.5 11/[address] CHEM PANEL CO2 21 meq/L 24 - 32 11/[address] CHEM PANEL Potassium Lvl 4.3 meq/L 3.5 - 5.1 11/[address] CHEM PANEL Chloride Lvl 114 meq/L 95 - [address] [place] [address] HEMATOLOGY MCHC 32.5 g/dL 32.0 - 11/18 [place] 36.0 [facility] HEMATOLOGY RDW 17.5 % 11.5 - 05 14.5 [facility] HEMATOLOGY Platelet 400 K/CMM 133 - [address] HEMATOLOGY MPV 8.5 fL 7.4 - 10.4 11/[address] HEMATOLOGY WBC 6.6 K/CMM 3.7 - 10.4 11/[address] HEMATOLOGY RBC 5.17 M/CMM 4.70 - 11/18 [facility] 6.10 [facility] HEMATOLOGY MCV 86.1 fL 80.0 - 11/18 [facility] 94.0 [facility] HEMATOLOGY Hct 44.5 % 42.0 - 11/18 [facility] 54.0 [facility] HEMATOLOGY MCH 28.0 pg 27.0 - 11/18 [facility] 31.0 [facility] HEMATOLOGY Hgb 14.5 g/dL 14.0 - 11/18 [facility] 18.0 [facility] HEMATOLOGY Lymphocytes # 1.7 K/CMM 1.0 - 5.5 11/[address] HEMATOLOGY Monocytes # 0.7 K/CMM 0.0 - 0.8 11/[address] HEMATOLOGY Eosinophils # 0.2 K/CMM 0.0 - 0.5 11/[address] HEMATOLOGY Lymphocytes 26.1 % 20.0 - 11/18 40.0 [facility] HEMATOLOGY Segs 59.3 % 45.0 - 11/18 [facility] 75.0 [facility] HEMATOLOGY Basophils 0.8 % 0.0 - 1.0 11/18 [facility] [address] [place] [address] HEMATOLOGY Monocytes 10.5 % 2.0 - 12.0 11/18 [facility] [address] [place] [address] HEMATOLOGY Eosinophils 3.3 % 0.0 - 4.0 11/[address] HEMATOLOGY Segs-Bands # 3.9 K/CMM 1.5 - 8.1 11/[address] TOXICOLOGY Vanco Tr TND 15:30pm 11/17 [facility] [address] [place] [address] TOXICOLOGY Vanco Tr 9.1 ug/ml 11/17 [facility] [address] [place] [address] CHEM PANEL Glucose Lvl 74 mg/dL 70 - 99 11/[address] CHEM PANEL BUN 12 mg/dL 7 - 22 11/[address] CHEM PANEL Creatinine 0.75 mg/dL 0.50 - 11/17 [facility] Lvl 1.40 /2017 [facility] CHEM PANEL eGFR 140 11/17 Result Comment: The eGFR is calculated using the CKD-EPI formula. In most young, healthy individuals the eGFR will be >90 mL/ min/1.73m2. The eGFR declines with age. An eGFR of 60-89 may be normal in [facility] mL/min/1.7 some populations, particularly the elderly, for whom the CKD-EPI formula has not been extensively validated. Use of the eGFR is not recommended in the following populations: [address] Individuals with unstable creatinine concentrations, including [...] Lvl 2.9 g/dL 3.5 - 5.0 11/[address] CHEM PANEL Globulin 4.4 g/dL 2.7 - 4.2 11/[address] CHEM PANEL A/G Ratio 0.7 0.7 - 1.6 11/[address] CHEM PANEL Bili Total 0.4 mg/dL 0.2 - 1.3 11/[address] CHEM PANEL Alk Phos 71 unit/L 39 - 136 11/[address] CHEM PANEL AST 15 unit/L 0 - 37 11/[address] CHEM PANEL ALT 28 unit/L 0 - 65 11/[address] CHEM PANEL Potassium Lvl 4.4 meq/L 3.5 - 5.1 11/[address] CHEM PANEL Sodium Lvl 147 meq/L 135 - 145 11/[address] CHEM PANEL CO2 25 meq/L 24 - 32 11/[address] CHEM PANEL Chloride Lvl 114 meq/L 95 - 109 11/[address] CHEM PANEL B/C Ratio 16 6 - 25 11/[address] CHEM PANEL Calcium Lvl 8.7 mg/dL 8.5 - 10.5 11/[address] CHEM PANEL AGAP 12.4 meq/L 10.0 - 11/17 [facility] 20.0 [facility] CHEM PANEL Total Protein 7.3 g/dL 6.4 - 8.4 11/[address] HEMATOLOGY Platelet 345 K/CMM 133 - [address] HEMATOLOGY MPV 8.7 fL 7.4 - 10.4 11/[address] HEMATOLOGY WBC 6.9 K/CMM 3.7 - 10.4 11/[address] HEMATOLOGY RBC 5.30 M/CMM 4.70 - 11/17 [facility] 6.10 [facility] HEMATOLOGY MCHC 32.8 g/dL 32.0 - 11/17 [facility] 36.0 [facility] HEMATOLOGY MCH 27.9 pg 27.0 - 11/17 [facility] 31.0 [facility] HEMATOLOGY Hgb 14.8 g/dL 14.0 - 11/17 [facility] 18.0 [facility] HEMATOLOGY MCV 85.0 fL 80.0 - 11/17 [facility] 94.0 [facility] HEMATOLOGY Hct 45.1 % 42.0 - 11/17 [facility] 54.0 [facility] HEMATOLOGY RDW 17.5 % 11.5 - 11/17 [facility] 14.5 [facility] HEMATOLOGY Eosinophils # 0.2 K/CMM 0.0 - 0.[address] HEMATOLOGY Lymphocytes # 2.0 K/CMM 1.0 - 5.[address] HEMATOLOGY Monocytes # 0.7 K/CMM 0.0 - 0.[address] HEMATOLOGY Eosinophils 2.4 % 0.0 - 4.[address] HEMATOLOGY Basophils 0.6 % 0.0 - 1.0 11/[address] HEMATOLOGY Segs-Bands # 4.0 K/CMM 1.5 - 8.[address] HEMATOLOGY Monocytes 10.4 % 2.0 - 12.0 11/17 [facility] [address] [place] [address] HEMATOLOGY RBC Morph Normal 11/17 [facility] (11/17/17 2:07 AM) [place] HEMATOLOGY Segs 58.1 % 45.0 - 11/17 [facility] 75.0 [facility] HEMATOLOGY Plt Morph Normal 11/17 [facility]2017 [facility] (11/17/17 2:07 AM) [place] HEMATOLOGY Lymphocytes 28.5 % 20.0 - 11/17 [facility] 40.0 [facility] HEMATOLOGY Basophils # 0.1 K/CMM 0.0 - 0.2 11/[address] HEMATOLOGY Polychrom Moderate None Seen 11/16 [facility] *ABN* Center (11/16/17 11:07 AM) TOXICOLOGY Vanco Tr TND * 11/[address] TOXICOLOGY Vanco Tr 22.3 ug/ml 11/[address] CHEM PANEL Magnesium Lvl 2.3 mg/dL 1.8 - 2.4 11/[address] CHEM PANEL Phosphorus 3.5 mg/dL 2.5 - 4.5 11/[address] HEMATOLOGY PT 14.0 s 12.0 - 11/15 [facility] 14. [facility] HEMATOLOGY PTT 37.6 s .9 - 11/15 [facility] 35. [facility] HEMATOLOGY INR 1.08 0.85 - 11/15 [facility] 07.31 [facility] IMMUNOLOGY C-REACTIVE 13.1 mg/L <=2.9 mg/L 11/15 [facility] PROTEIN [address] IMMUNOLOGY Prealbumin 25.2 mg/dL 18.0 - 11/15 [facility] 45.0 [facility] CHEM PANEL Lactic Acid 0.9 mMol/L 0.5 - 2.2 11/15 [facility] HEMATOLOGY Sed Rate 5 mm/h 0 - 15 11/[address] IMMUNOLOGY C-REACTIVE 15.8 mg/L <=2.9 mg/L 11/[address] HEMATOLOGY PT 13.0 s 12.0 - 11/15 [facility] 14. [facility] HEMATOLOGY INR 0.98 0.85 - 11/15 [facility] 1. [facility] HEMATOLOGY PTT 33.2 s 22.9 - 11/15 [facility] 35. [facility] BLOOD BANK Antibody Scrn Negative 11/14 [facility] RESULTS [facility] (11/14/17 6:51 PM) Center BLOOD BANK ABO/Rh AB POS 11/14 [facility] RESULTS [facility] URINE AND UA 0.2 EU/dL 0.1 - 1.0 11/14 [facility] Urobilinogen /2017 [facility] URINE AND UA Nitrite Negative Negative 11/14 [facility]2017 [facility] (11/14/17 6:35 PM) [place] URINE AND UA Glucose Negative Negative 11/14 [facility] STOOL [facility] (11/14/17 6:35 PM) [place] URINE AND UA Ketones Negative Negative 11/14 [facility] *NA* [place] (11/14/17 6:35 PM) URINE AND UA Bili Negative Negative 11/14 [facility] *NA* [place] (11/14/17 6:35 PM) URINE AND UA Blood Trace Negative 11/14 [facility] *ABN* [place] (11/14/17 6:35 PM) URINE AND UA Leuk Est Small Negative 11/14 [facility] *ABN* [place] (11/14/17 6:35 PM) URINE AND UA Spec Grav 1.020 <=1.030 11/[address] URINE AND UA pH 6.0 5.0 - 8.0 11/14 [facility]2017 [facility] URINE AND UA Color Yellow Yellow 11/14 [facility] *NA* [place] (11/14/17 6:35 PM) URINE AND UA Protein Trace Negative 11/14 [facility] *ABN* [place] (11/14/17 6:35 PM) URINE AND UA Turbidity Slight Cloudy Clear 11/14 [facility] STOOL [facility] (11/14/17 6:35 PM) [place] URINE AND UA Hyal Cast 0-2 0 - 2 11/14 [facility] (11/14/17 6:35 PM) [place] URINE AND UA Bacteria Occasional None Seen [facility] /[facility] /HPF [facility]2017 [facility] URINE AND UA RBC 11-20 /HPF 0 - 2 11/[address] URINE AND UA Sq Epi Occasional Few /LPF 11/14 [facility] STOOL /LPF /2017 [facility] URINE AND UA WBC 51-100 None Seen 11/14 [facility] STOOL /HPF /HPF /2017 [facility] HEMATOLOGY Basophils # 0.1 K/CMM 0.0 - 0.2 11/14 [facility] HEMATOLOGY Polychrom Slight 11/14 [facility] HEMATOLOGY Plt Morph Normal 11/14 [facility] (11/14/17 6:20 PM) Center Brain shunt Brain shunt EXAM: SKULL 2 VIEWS 11/14 - [facility] series DX series DX - Medical EXAM: CHEST 2 VIEWS This report was dictated by a Lens Cutter /Fellow. I have personally reviewed the images [...] EXAM: CT BRAIN WITHOUT CONTRAST 11/14 - [facility] contrast CT contrast CT /2017 - Medical This report was dictated by a Lens Cutter/Fellow. I have personally reviewed the images as Center well as the Resident's interpretation and agree with the findings. DATE: 11/14/2017 627 PM CDT Read by: Josemanuel Hoyt MD Resident: Josemanuel Hoyt MD Dictated Date/time: 11/14/17 18:45 Electronically Signed by: Jovan Talley MD 11/14/17 21:12 FINAL REPORT INDICATION: 32-year-old male patient with history of svp operations shunt malfunction COMPARISON: CT of the brain 07/30/2014, 03/27/2013. TECHNIQUE: Axial CT images of the brain were obtained. Sagittal and coronal reformats. IV contrast: None. FINDINGS: An orphaned right occipital approach YARN EXAMINER SKEINS shunt is present. Also present is a right frontal approach YARN EXAMINER SKEINS shunt with tip in the left lateral [...] EXAM: XR CHEST 1 VIEW 11/14 - [facility] DX /2017 - [facility] This report was dictated by a Lens Cutter/Fellow. I have personally reviewed the images as [...] Source Temperature Oral (F) 97.2 F 11/19/2017 [facility] Systolic (mm Hg) 127 11/19/2017 [facility] Diastolic (mm Hg) 85 11/19/2017 [facility] Heart Rate 81 11/19/2017 [facility] Respitory Rate 18 11/19/2017 [facility] Heart Rate 90 11/19/2017 [facility] Systolic (mm Hg) 106 11/19/2017 [facility] Diastolic (mm Hg) 71 11/19/2017 [facility] Respitory Rate 18 11/19/2017 [facility] Temperature Oral (F) 98.1 F 11/19/2017 [facility] Respitory Rate 18 11/19/2017 [facility] Systolic (mm Hg) 168 11/19/2017 [facility] Diastolic (mm Hg) 107 11/19/2017 [facility] Heart Rate 87 11/19/2017 [facility] Temperature Oral (F) 98.1 F 11/19/2017 [facility] Weight 127.027 11/18/2017 [facility] Weight 127.027 11/17/2017 [facility] Weight 127.027 11/15/2017 [facility] BMI Calculated 48.16 11/15/2017 [facility] Height 162.56 cm 11/15/2017 [facility] Height 149.86 cm 11/14/2017 [facility] BMI Calculated 56.67 11/14/2017 [facility] Encounters Location Location Encounter Encounter Reason Attending ADM DC Status Source Details Type Number For Provider Date Date Visit [facility] [id number] [place] 11/14 11/19 [facility] Jason Vasquezh [facility] Procedures Procedure Code Date Perfomer Comments Source Cholecystectomy [id number] [facility] Shunt of cerebral [id number] [facility] ventricle to Medical extracranial site Center
--- OUTSIDE RECORDS SUMMARY | 2018-06-07 19:40 | XMS REPORT ---
:1985 Author Organization [employer] Care Team Providers Name Role Phone Gamble, [...] headache, R51 Active unspecified headache type Problem OUTBOUND CALL CENTER REPRESENTATIVE (ventriculoperitoneal) shunt Z98.2 Active status Medications No Known Medications Results No Known Results Summary Purpose [employer] Submission
--- OUTSIDE RECORDS SUMMARY | 2018-06-07 19:40 | XMS REPORT ---
:1985 Author Organization [employer] Care Team Providers Name Role Phone Gamble, [...] headache, R51 Active unspecified headache type Problem OUTREACH ANALYST (ventriculoperitoneal) shunt Z98.2 Active status Medications No Known Medications Results No Known Results Summary Purpose [employer] Submission
--- OUTSIDE RECORDS SUMMARY | 2018-06-07 19:40 | XMS REPORT ---
[...] hydrocephalus Problem Bipolar depression F31.30 Active Assessment STUDIO COORDINATOR (ventriculoperitoneal) shunt Z98.2 Active status Problem Depression [...] spina bifida with Q05.2 Active hydrocephalus Problem STUDIO COORDINATOR (ventriculoperitoneal) shunt Z98.2 Active status Problem Nicotine dependence F17.200 Active Medications Medication Code Code Instructions Start End Status Dosage System Date Date Collagenase [facility] 2] [address]-21 250 UNIT/GM Active 1 application Externally to affected Once a day area Macrobid [facility] 2] 06627367050 100 MG Orally Active 1 capsule every 12 hrs with food Tylenol with [facility]NOTE 2] 29582399796 300-60 MG Active 1 tablet as Codeine #4 Orally every 6 needed hrs Citalopram [facility]NOTE 2] 62799140946 10 MG Orally January Active 1 tablet Hydrobromide Once a day 2017 Pantoprazole [facility]NOTE 2] 91337353896 40 MG Orally Active 1 tablet Sodium Once a day Seroquel [facility]NOTE 2] 64371228159 25 MG Orally January Active 1 tablet Once a day at 16, bedtime 2017 Results No Known Results Summary Purpose [employer] Submission
--- OUTSIDE RECORDS SUMMARY | 2018-06-07 19:40 | XMS REPORT ---
[...] tension-type headache, not G44.219 Active intractable Assessment RESPIRATORY THERAPY DIRECTOR (ventriculoperitoneal) shunt Z98.2 Active status Assessment Ulcer [...] vomiting not specified, unspecified vomiting type Problem RESPIRATORY THERAPY DIRECTOR (ventriculoperitoneal) shunt Z98.2 Active status Medications Medication Code Code Instructions Start End Status Dosage System Date Date Tylenol with [facility] 38925379065 300-60 MG Active 1 tablet as Codeine #4 Orally every 6 needed hrs Macrobid [facility] 00867786215 100 MG Orally Active 1 capsule every 12 hrs with food Pantoprazole ND 82588567756 40 MG Orally Active 1 tablet Sodium Once a day Collagenase [facility] [address]-67 250 UNIT/GM Active 1 application Externally to affected Once a day area Results No Known Results Summary Purpose [employer] Submission
--- OUTSIDE RECORDS SUMMARY | 2018-06-07 19:41 | XMS REPORT ---
:1985 [facility] Address [address] [place] [address] [address] [place] [address] Care Team Providers Name Role Phone JAQUELIN GENAO Unavailable Unavailable Problems This patient has no known problems. Allergies, Adverse Reactions, Alerts This patient has no known allergies or adverse reactions. Medications This patient has no known medications. Results Test Description Test Time Test Comments Text Results Atomic Results Result Comments BLOOD CULTURE 2016-12-28 16:22:00 Test Item Value Reference Range Comments CULTURE (BEAKER) (test ryio=9240) No growth in 5 days BLOOD [id number] 16:22:00 Test Item Value Reference Range Comments CULTURE (BEAKER) (test tubq=7367) No growth in 5 days (MANUAL DIFFERENTIAL)2016-12-25 22:29:00 Test Item Value Reference Range Comments TOTAL COUNTED (BEAKER) (test teph=8164) WBC MORPHOLOGY (BEAKER) (test ajdq=965) Normal PLT MORPHOLOGY (BEAKER) (test buso=200) Normal RBC MORPHOLOGY (BEAKER) (test dzbt=392) Normal CBC W/PLT COUNT & AUTO [id number] 22:28:00 Test Item Value Reference Range Comments WHITE BLOOD CELL COUNT (BEAKER) (test nkyg=713) 7.3 K/ L 4.0-10.0 RED BLOOD CELL COUNT (BEAKER) (test pdbd=557) 5.09 M/ L 4.20-5.80 HEMOGLOBIN (BEAKER) (test jgvz=998) 13.0 GM/DL 13.0-16.8 HEMATOCRIT (BEAKER) (test ojgg=696) 42.3 % 40.0-50.0 MEAN CORPUSCULAR VOLUME (BEAKER) (test icbv=009) 83.0 fL 82.0-98.0 MEAN CORPUSCULAR HEMOGLOBIN (BEAKER) (test 25.6 pg 27.0-33.0 babu=483) MEAN CORPUSCULAR HEMOGLOBIN CONC (BEAKER) (test 30.8 GM/DL 32.0-36.0 koyu=539) RED CELL DISTRIBUTION WIDTH (BEAKER) (test 18.0 % 10.3-14.2 sakt=898) PLATELET COUNT (BEAKER) (test xzep=076) 331 K/CU MM 150-430 MEAN PLATELET VOLUME (BEAKER) (test uxbn=128) 8.5 fL 6.5-10.5 NUCLEATED RED BLOOD CELLS (BEAKER) (test 0 /100 WBC 0-0 wnoa=759) NEUTROPHILS RELATIVE PERCENT (BEAKER) (test 65 % vqrz=068) LYMPHOCYTES RELATIVE PERCENT (BEAKER) (test 23 % qrhl=285) MONOCYTES RELATIVE PERCENT (BEAKER) (test 8 % ukwx=489) EOSINOPHILS RELATIVE PERCENT (BEAKER) (test 3 % ubrs=514) BASOPHILS RELATIVE PERCENT (BEAKER) (test 1 % kltl=920) NEUTROPHILS ABSOLUTE COUNT (BEAKER) (test 4.75 K/ L 1.80-8.00 wlou=030) LYMPHOCYTES ABSOLUTE COUNT (BEAKER) (test 1.68 K/ L 1.48-4.50 roca=544) MONOCYTES ABSOLUTE COUNT (BEAKER) (test 0.55 K/ L 0.00-1.30 lmva=579) EOSINOPHILS ABSOLUTE COUNT (BEAKER) (test 0.24 K/ L 0.00-0.50 pshv=733) BASOPHILS ABSOLUTE COUNT (BEAKER) (test 0.05 K/ L 0.00-0.20 mgjc=412) 0.000.520.000.000.000.00BASI METABOLIC [id number] 11:11:00 Test Item Value Reference Range Comments SODIUM (BEAKER) (test 138 meq/L 136-145 nxin=782) POTASSIUM (BEAKER) (test 4.0 meq/L 3.5-5.1 votu=561) CHLORIDE (BEAKER) (test 108 meq/L 98-107 rbpp=344) CO2 (BEAKER) (test 23 meq/L 22-29 byyz=313) BLOOD UREA NITROGEN 11 mg/dL 7-21 (BEAKER) (test ohyz=282) CREATININE (BEAKER) (test 0.74 mg/dL 0.57-1.25 bthx=038) GLUCOSE RANDOM (BEAKER) 124 mg/dL 70-105 (test mzms=045) CALCIUM (BEAKER) (test 8.9 mg/dL 8.4-10.2 kncm=765) EGFR (BEAKER) (test 150 mL/min/1.73 sq m ESTIMATED GFR IS NOT lyjg=6787) ACCURATE CREATININE CLEARANCE IN PREDICTING GLOMERULAR FILTRATION RATE. ESTIMATED GFR IS NOT APPLICABLE FOR DIALYSIS PATIENTS. URINE [id number] 09:56:00 Test Item Value Reference Range Comments CULTURE (BEAKER) (test tekt=4396) <10,000 col/mL skin marilee COMPREHENSIVE METABOLIC [id number] 08:49:00 Test Item Value Reference Range Comments TOTAL PROTEIN (BEAKER) 7.3 gm/dL 6.0-8.3 (test tcjl=998) ALBUMIN (BEAKER) (test 3.3 g/dL 3.5-5.0 tzju=9830) ALKALINE PHOSPHATASE 89 U/L 40-150 (BEAKER) (test icdj=546) BILIRUBIN TOTAL (BEAKER) 1.4 mg/dL 0.2-1.2 (test fvvd=074) SODIUM (BEAKER) (test 137 meq/L 136-145 jhqt=559) POTASSIUM (BEAKER) (test 3.7 meq/L 3.5-5.1 iesb=428) CHLORIDE (BEAKER) (test 108 meq/L 98-107 wzye=588) CO2 (BEAKER) (test 17 meq/L 22-29 dhnw=995) BLOOD UREA NITROGEN 12 mg/dL 7-21 (BEAKER) (test bjlc=552) CREATININE (BEAKER) (test 0.78 mg/dL 0.57-1.25 rvcf=391) GLUCOSE RANDOM (BEAKER) 119 mg/dL 70-105 (test vzjv=772) CALCIUM (BEAKER) (test 8.6 mg/dL 8.4-10.2 pard=051) AST (SGOT) (BEAKER) (test 13 U/L 5-34 zrla=831) ALT (SGPT) (BEAKER) (test 28 U/L 6-55 ssby=121) EGFR (BEAKER) (test 141 mL/min/1.73 sq ESTIMATED GFR IS NOT ksvy=5209) m ACCURATE CREATININE CLEARANCE IN PREDICTING GLOMERULAR FILTRATION RATE. ESTIMATED GFR IS NOT APPLICABLE FOR DIALYSIS PATIENTS. CBC W/PLT COUNT & AUTO [id number] 08:46:00 Test Item Value Reference Range Comments WHITE BLOOD CELL COUNT (BEAKER) (test rxxb=101) 9.4 K/ L 4.0-10.0 RED BLOOD CELL COUNT (BEAKER) (test kfdf=706) 4.79 M/ L 4.20-5.80 HEMOGLOBIN (BEAKER) (test nehz=319) 12.8 GM/DL 13.0-16.8 HEMATOCRIT (BEAKER) (test kyrw=998) 40.0 % 40.0-50.0 MEAN CORPUSCULAR VOLUME (BEAKER) (test wwqp=352) 83.4 fL 82.0-98.0 MEAN CORPUSCULAR HEMOGLOBIN (BEAKER) (test 26.7 pg 27.0-33.0 kwjd=750) MEAN CORPUSCULAR HEMOGLOBIN CONC (BEAKER) (test 32.0 GM/DL 32.0-36.0 swsd=341) RED CELL DISTRIBUTION WIDTH (BEAKER) (test 18.2 % 10.3-14.2 qjtm=315) PLATELET COUNT (BEAKER) (test tpus=921) 313 K/CU MM 150-430 MEAN PLATELET VOLUME (BEAKER) (test nmey=551) 8.6 fL 6.5-10.5 NUCLEATED RED BLOOD CELLS (BEAKER) (test 0 /100 WBC 0-0 qkbl=533) NEUTROPHILS RELATIVE PERCENT (BEAKER) (test 70 % rgye=234) LYMPHOCYTES RELATIVE PERCENT (BEAKER) (test 16 % karr=461) MONOCYTES RELATIVE PERCENT (BEAKER) (test 12 % nzvo=083) EOSINOPHILS RELATIVE PERCENT (BEAKER) (test 1 % rhbo=429) BASOPHILS RELATIVE PERCENT (BEAKER) (test 1 % wgui=335) NEUTROPHILS ABSOLUTE COUNT (BEAKER) (test 6.54 K/ L 1.80-8.00 eian=072) LYMPHOCYTES ABSOLUTE COUNT (BEAKER) (test 1.50 K/ L 1.48-4.50 xdca=769) MONOCYTES ABSOLUTE COUNT (BEAKER) (test 1.13 K/ L 0.00-1.30 fgkg=942) EOSINOPHILS ABSOLUTE COUNT (BEAKER) (test 0.13 K/ L 0.00-0.50 mqms=231) BASOPHILS ABSOLUTE COUNT (BEAKER) (test 0.06 K/ L 0.00-0.20 iyfw=581) 0.00URINALYSIS W/ [id number] 20:36:00 Test Item Value Reference Range Comments COLOR (BEAKER) (test srgn=507) Yellow CLARITY (BEAKER) (test gqdt=279) Hazy SPECIFIC GRAVITY UA (BEAKER) (test psgx=272) 1.012 1.001-1.035 PH UA (BEAKER) (test emoe=911) 5.5 5.0-8.0 PROTEIN UA (BEAKER) (test etld=302) 100 mg/dL Negative GLUCOSE UA (BEAKER) (test nogw=432) Negative Negative KETONES UA (BEAKER) (test lrbw=319) Negative Negative BILIRUBIN UA (BEAKER) (test xybl=243) Negative Negative BLOOD UA (BEAKER) (test cgie=852) Moderate Negative NITRITE UA (BEAKER) (test xyac=858) Negative Negative LEUKOCYTE ESTERASE UA (BEAKER) (test lynu=861) Large Negative UROBILINOGEN UA (BEAKER) (test xwll=235) 3.0 mg/dL 0.2-1.0 RBC UA (BEAKER) (test mzyx=483) 19 /HPF WBC UA (BEAKER) (test tljd=390) 182 /HPF SOURCE(BEAKER) (test zpan=1076) BASIC METABOLIC [id number] 17:00:00 Test Item Value Reference Range Comments SODIUM (BEAKER) (test 140 meq/L 136-145 kjjo=173) POTASSIUM (BEAKER) (test 3.7 meq/L 3.5-5.1 mpmw=388) CHLORIDE (BEAKER) (test 112 meq/L 98-107 phsn=336) CO2 (BEAKER) (test 17 meq/L 22-29 tjsp=904) BLOOD UREA NITROGEN 23 mg/dL 7-21 (BEAKER) (test kwgz=795) CREATININE (BEAKER) (test 1.00 mg/dL 0.57-1.25 uxms=515) GLUCOSE RANDOM (BEAKER) 102 mg/dL 70-105 (test acba=210) CALCIUM (BEAKER) (test 8.7 mg/dL 8.4-10.2 ctei=658) EGFR (BEAKER) (test 106 mL/min/1.73 sq m ESTIMATED GFR IS NOT yfzp=8422) ACCURATE CREATININE CLEARANCE IN PREDICTING GLOMERULAR FILTRATION RATE. ESTIMATED GFR IS NOT APPLICABLE FOR DIALYSIS PATIENTS. Specimen slightly ictericCBC W/PLT COUNT & AUTO [id number] 12:18 :00 Test Item Value Reference Range Comments WHITE BLOOD CELL COUNT (BEAKER) (test lfvx=609) 16.4 K/ L 4.0-10.0 RED BLOOD CELL COUNT (BEAKER) (test ivfz=224) 5.22 M/ L 4.20-5.80 HEMOGLOBIN (BEAKER) (test rtaq=413) 14.4 GM/DL 13.0-16.8 HEMATOCRIT (BEAKER) (test cmqk=605) 42.9 % 40.0-50.0 MEAN CORPUSCULAR VOLUME (BEAKER) (test gmhq=356) 82.2 fL 82.0-98.0 MEAN CORPUSCULAR HEMOGLOBIN (BEAKER) (test 27.5 pg 27.0-33.0 hzyi=692) MEAN CORPUSCULAR HEMOGLOBIN CONC (BEAKER) (test 33.5 GM/DL 32.0-36.0 jhpa=480) RED CELL DISTRIBUTION WIDTH (BEAKER) (test 16.2 % 10.3-14.2 fxhc=747) PLATELET COUNT (BEAKER) (test rzaz=461) 329 K/CU MM 150-430 MEAN PLATELET VOLUME (BEAKER) (test rkor=542) 8.2 fL 6.5-10.5 NUCLEATED RED BLOOD CELLS (BEAKER) (test 0 /100 WBC 0-0 uzra=011) NEUTROPHILS RELATIVE PERCENT (BEAKER) (test 83 % ytff=342) LYMPHOCYTES RELATIVE PERCENT (BEAKER) (test 7 % ojfi=546) MONOCYTES RELATIVE PERCENT (BEAKER) (test 9 % brdw=281) EOSINOPHILS RELATIVE PERCENT (BEAKER) (test 0 % qyci=786) BASOPHILS RELATIVE PERCENT (BEAKER) (test 0 % tsae=088) NEUTROPHILS ABSOLUTE COUNT (BEAKER) (test 1.62 K/ L 1.80-8.00 bojs=614) LYMPHOCYTES ABSOLUTE COUNT (BEAKER) (test 1.15 K/ L 1.48-4.50 efia=615) MONOCYTES ABSOLUTE COUNT (BEAKER) (test 1.56 K/ L 0.00-1.30 xmcy=211) EOSINOPHILS ABSOLUTE COUNT (BEAKER) (test 0.01 K/ L 0.00-0.50 zwgm=483) BASOPHILS ABSOLUTE COUNT (BEAKER) (test 0.02 K/ L 0.00-0.20 hmrq=725) (MANUAL DIFFERENTIAL)2016-12-23 12:18:00 Test Item Value Reference Range Comments TOTAL COUNTED (BEAKER) (test xvkf=1152) WBC MORPHOLOGY (BEAKER) (test bsrw=556) Normal PLT MORPHOLOGY (BEAKER) (test cqge=000) Normal RBC MORPHOLOGY (BEAKER) (test mfai=748) Normal
--- OUTSIDE RECORDS SUMMARY | 2018-06-07 19:41 | XMS REPORT ---
[...] ulcer stage Problem Paraplegia G82.20 Active Assessment TOGGLE PRESS FOLDER AND FEEDER (ventriculoperitoneal) shunt Z98.2 Active status Problem Nausea [...] headache, R51 Active unspecified headache type Problem TOGGLE PRESS FOLDER AND FEEDER (ventriculoperitoneal) shunt Z98.2 Active status Problem Episodic tension-type headache, not G44.219 Active intractable Problem Lumbar spina bifida with Q05.2 Active hydrocephalus Problem Foot ulcer L97.509 Active Problem Nicotine dependence F17.200 Active Problem Dependence on wheelchair Z99.3 Active Medications Medication Code Code Instructions Start End Status Dosage System Date Date Macrobid [facility] 59552771071 100 MG Orally Active 1 capsule every 12 hrs with food Tylenol with [facility] 69661489046 300-60 MG Active 1 tablet as Codeine #4 Orally every 6 needed hrs Pantoprazole ND 70298659362 40 MG Orally Active 1 tablet Sodium Once a day Citalopram [facility] 71002799136 10 MG Orally Active 1 tablet Hydrobromide Once a day Collagenase [facility] [address]-58 250 UNIT/GM Active 1 application Externally to affected Once a day area Seroquel [facility] 94417225235 25 MG Orally Active 1 tablet Once a day at bedtime Results No Known Results Summary Purpose [employer] Submission
[2018-06-07] MEDS ORDERED: DIPHENHYDRAMINE 50 MG/ML VIAL ONE (20:32)
[2018-06-07] MEDS ORDERED: NA CHLORIDE 0.9% 1,000 ML ONE (20:32)
[2018-06-07] MEDS ORDERED: METOCLOPRAMIDE 10 MG/2mL INJ ONE (20:32)
[2018-06-07 20:44] LABS: Absolute Lymphocytes (CBC) 1.8 K/uL (0.7-4.9); Absolute Monocytes 0.9 K/uL (0.1-1.3); Absolute Neutrophil 6.5 K/uL (1.8-8.0); Basophils % 0.6 % (0-1.3); Eosinophils % 1.4 % (0-4.4); MCH 27.3 pg (27.0-35.0); MCV 82.1 fL (80-100); MPV 8.3 fL (7.6-11.3); Monocytes % 10.1 % (3.3-12.3); RBC Red Blood Cell Count 5.61 M/uL (4.33-5.43)
[2018-06-07 21:03] LABS: ALT/SGPT 33 U/L (12-78); AST/SGOT 12 U/L (15-37); Albumin 3.3 g/dL (3.4-5.0); Alkaline Phosphatase 118 U/L (45-117); BUN Blood Urea Nitrogen 17 mg/dL (7-18); Bicarbonate 26 mmol/L (21-32); Bilirubin Total 0.2 mg/dL (0.2-1.0); Glucose Level 114 mg/dL (74-106); Potassium 4.4 mmol/L (3.5-5.1); Protein, Total 8.2 g/dL (6.4-8.2); Sodium Level 141 mmol/L (136-145)
[2018-06-07] MEDS ORDERED: HYDROMORPHONE HCL 2 MG/ML inj ONE (21:48)
--- NOTE | 2018-06-07 21:51 | RAD REPORT ---
EXAM DESCRIPTION: CT - [id number] - 06/07/2018 8:58 pm CLINICAL HISTORY: Fall, head and neck injury COMPARISON: CT head and neck October 2017, CT head May 22 TECHNIQUE: Axial 5 mm thick images of the head were obtained. Axial 2 mm thick images of the cervic al spine were obtained with sagittal and coronal reconstruction images generated and reviewed. All CT scans are performed using dose optimization technique as appropriate and may include automated exposure control or mA/KV adjustment according to patient size. FINDINGS: No intracranial hemorrhage, mass, edema or acute intracranial finding. No suspicion for acute infarct ion. 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 Mastoid air cells and paranasal sinuses are clear. No globe or orbi t abnormality seen. Ventricles are not enlarged. However, ventricular size has increased May 22. Early shunt malfunction would be possible. There is currently no cerebral edema or sulcal effacement. . Cervical body height and alignment are normal. No disk space narrowing. No fracture or acute bony abn ormality. No paraspinal mass or hematoma. IMPRESSION: No hemorrhage, edema or mass lesion. Ventricles are not grossly enlarged but have increased in size from May 22 where the ventricular system was decompressed. Findings could reflect an early shot malfunction. Negative CT cervical spine examination for acute or significant finding.
--- NOTE | 2018-06-07 21:56 | ER ---
Nurse's Notes [facility] Name: Roland Feldman Jr Age: 33 yrs Sex: Male : 1985 Arrival Date: 06/07/2018 Time: 19:37 Bed 28 Private MD: Diagnosis: Migraine without aura Presentation: 06/07 19:56 Presenting complaint: Patient states: "I FELL LAST NIGHT, MIDNIGHT, I TRIED TO TURN AND rv ROLL WHEN I REALIZED HOW CLOSE I AM TO THE EDGE OF THE BED AND I JUST HIT THE FLOOR. I HIT MY HEAD AND I GOT DIZZY.". Transition of care: patient was received from another setting of care (home health care), [facility]. Onset of symptoms was June 06, 2018 at 00:00. Risk Assessment: Do you want to hurt yourself or someone else? Patient reports no desire to harm self or others. Initial Sepsis Screen: Does the patient meet any 2 criteria? No. Patient's initial sepsis screen is negative. Does the patient have a suspected source of infection? No. Patient's initial sepsis screen is negative. Care prior to arrival: None. 19:56 Method Of Arrival: Wheelchair 19:56 Acuity: YUKI 3 rv Triage Assessment: 20:02 Headache History: The patient has had previous headaches and this one is different than rv previous episodes. General: Appears in no apparent distress. uncomfortable, Behavior is calm, cooperative. Pain: Pain began 1 day ago. Also complains of DIZZINESS. Historical: - Allergies: 20:00 Amoxicillin; rv 20:00 Bactrim; rv 20:00 Ciprofloxacin; rv 20:00 CLAVULANIC ACID; rv 20:00 Doxycycline; rv 20:00 Levofloxacin; rv 20:00 Morphine; rv 20:00 Toradol; rv 20:00 TRIMETHOPRIM; rv 20:00 Vancomycin; rv 20:00 Zofran; rv - Home Meds: 20:00 Pepcid Oral [Active]; rv - PMHx: 20:00 Asthma; Cerebral Palsy; cluster headaches; decubitus ulcers on feet; GERD; rv Hydrocephalus; Hypertension; spina bifida; - PSHx: 20:00 SHUNT REVISION 2002; AMPUTATION OF LOWER LIMB 2001; rv - Immunization history:: Adult Immunizations up to date, Flu vaccine is up to date. - Social history:: Smoking status: Patient uses tobacco products, smokes one-half pack cigarettes per day, Patient/guardian denies using alcohol, street drugs, The patient lives with family. - Ebola Screening: : Patient negative for fever greater than or equal to 101.5 degrees Fahrenheit, and additional compatible Ebola Virus Disease symptoms Patient denies exposure to infectious person Patient denies travel to an Ebola-affected area in the 21 days before illness onset. - Family history:: not pertinent, pertinent for. Screenin:01 Abuse screen: Denies threats or abuse. Denies injuries from another. Nutritional rv screening: No deficits noted. Tuberculosis screening: No symptoms or risk factors identified. Fall Risk None identified. Assessment: 20:01 General: Appears in no apparent distress. uncomfortable, Behavior is calm, cooperative. rv Pain: Complains of pain in HEAD Pain currently is 9 out of 10 on a pain scale. Neuro: Level of Consciousness is awake, alert, obeys commands, Oriented to person, place, time, situation. Cardiovascular: Capillary refill < 3 seconds. Respiratory: Airway is patent. GI: No signs and/or symptoms were reported involving the gastrointestinal system. : No signs and/or symptoms were reported regarding the genitourinary system. EENT: No signs and/or symptoms were reported regarding the EENT system. Derm: Skin is intact. Musculoskeletal: No signs and/or symptoms reported regarding the musculoskeletal system. 21:00 Reassessment: Patient appears in no apparent distress at this time. rv 23:02 Reassessment: Patient appears in no apparent distress at this time. AWAITING EMS rv TRANSPORT. Vital Signs: 20:00 BP 137 / 94; Pulse 112; Resp 16; Temp 98.6; Pulse Ox 97% on R/A; Weight 131.54 kg; Pain rv 9/10; 21:00 BP 96 / 50; Pulse 92; Resp 17; Pulse Ox 96% on R/A; rv 23:03 BP 107 / 55; Pulse 95; Resp 17; Pulse Ox 97% on R/A; rv [place] Coma Score: 20:57 Eye Response: spontaneous(4). Verbal Response: oriented(5). Motor Response: obeys ma2 commands(6). Total: 15. ED Course: 19:37 Patient arrived in ED. ds1 19:41 Rocio Gage MD is Attending Physician. ma2 19:58 Triage completed. rv 20:02 Arm band placed on right wrist. rv 20:02 Patient has correct armband on for positive identification. Call light in reach. Pulse rv ox on. NIBP on. 20:[address] cw1 20:36 Inserted saline lock: 22 gauge in right antecubital area, using aseptic technique. rv Blood collected. 20:58 CT completed. Patient moved back from NM. cw1 20:59 CT Head C Spine In Process Unspecified. EDMS 23:03 No provider procedures requiring assistance completed. IV discontinued, bleeding rv controlled, No redness/swelling at site. Pressure dressing applied. Administered Medications: 20:36 Drug: Benadryl 50 mg Route: IVP; Site: right antecubital; rv 23:05 Follow up: Response: Pain is decreased rv 21:00 Drug: NS 0.9% 1000 ml Route: IV; Rate: 1 bolus; Site: right antecubital; rv 23:05 Follow up: IV Status: Completed infusion rv 21:21 Drug: Reglan 10 mg Route: IVP; Site: right antecubital; rv 23:05 Follow up: Response: Pain is decreased rv 21:31 CANCELLED (Patient Refused): Zofran 4 mg IVP once; over 2 minutes ma2 21:45 Drug: Dilaudid 1 mg Route: IVP; Site: right antecubital; rv 23:04 Follow up: Response: Pain is decreased rv Outcome: 21:55 Discharge ordered by . ma2 23:03 Discharged to [facility] rv 23:03 Condition: improved 23:03 Discharge instructions given to patient, Instructed on discharge instructions, follow up and referral plans. medication usage, Demonstrated understanding of instructions, follow-up care, medications, Prescriptions given X 1. 23:58 Patient left the ED. rv Signatures: Dispatcher [employer] EDNJ Jaleesa Lal Crystal cw1 Rocio Gage MD MD ma2 Tom Hunter RN RN rv
--- NOTE | 2018-06-07 21:56 | EDPHYS ---
Physician Documentation [facility] Name: Roland Feldman Jr Age: 33 yrs Sex: Male : 1985 Arrival Date: 06/07/2018 Time: 19:37 Bed 28 Private MD: ED Physician Rocio Gage HPI: 06/07 20:57 This 33 yrs old Black Male presents to ER via Wheelchair with complaints of Headache. ma2 20:57 The patient complains of pain to the forehead. Onset: The symptoms/episode ma2 began/occurred suddenly, 1 hour(s) ago. Onset: The symptoms/episode began/occurred suddenly, gradually, 2 hour(s) ago. Associated signs and symptoms: Pertinent negatives: altered mental status, dizziness, malaise, neck stiffness, Photophobia rash, vision loss, vomiting, vertigo. Severity of symptoms: At its worst the pain was moderate, in the emergency department the pain is unchanged. Severity of symptoms: At its worst the pain was in the emergency department the pain. Headache History: The patient has had previous headaches and this one is similar to previous episodes. The patient has experienced similar episodes in the past. Historical: - Allergies: 20:00 Amoxicillin; rv 20:00 Bactrim; rv 20:00 Ciprofloxacin; rv 20:00 CLAVULANIC ACID; rv 20:00 Doxycycline; rv 20:00 Levofloxacin; rv 20:00 Morphine; rv 20:00 Toradol; rv 20:00 TRIMETHOPRIM; rv 20:00 Vancomycin; rv 20:00 Zofran; rv - Home Meds: 20:00 Pepcid Oral [Active]; rv - PMHx: 20:00 Asthma; Cerebral Palsy; cluster headaches; decubitus ulcers on feet; GERD; rv Hydrocephalus; Hypertension; spina bifida; - PSHx: 20:00 SHUNT REVISION 2002; AMPUTATION OF LOWER LIMB 2001; rv - Immunization history:: Adult Immunizations up to date, Flu vaccine is up to date. - Social history:: Smoking status: Patient uses tobacco products, smokes one-half pack cigarettes per day, Patient/guardian denies using alcohol, street drugs, The patient lives with family. - Ebola Screening: : Patient negative for fever greater than or equal to 101.5 degrees Fahrenheit, and additional compatible Ebola Virus Disease symptoms Patient denies exposure to infectious person Patient denies travel to an Ebola-affected area in the 21 days before illness onset. - Family history:: not pertinent, pertinent for. ROS: 20:57 Neuro: Positive for headache, Negative for altered mental status, dizziness, gait ma2 disturbance, seizure activity, syncope, tinnitus, tremor. 20:57 All other systems are negative. 21:56 Constitutional: Negative for fever, chills, and weight loss, ENT: Negative for injury, ma2 pain, and discharge. Exam: 20:57 Constitutional: This is a well developed, well nourished patient who is awake, alert, ma2 and in no acute distress. Chest/axilla: Normal chest wall appearance and motion. Nontender with no deformity. No lesions are appreciated. Cardiovascular: Regular rate and rhythm with a normal S1 and S2. No gallops, murmurs, or rubs. Normal PMI, no JVD. No pulse deficits. Respiratory: Lungs have equal breath sounds bilaterally, clear to auscultation and percussion. No rales, rhonchi or wheezes noted. No increased work of breathing, no retractions or nasal flaring. Abdomen/GI: Soft, non-tender, with normal bowel sounds. No distension or tympany. No guarding or rebound. No evidence of tenderness throughout. Neuro: Awake and alert, GCS 15, oriented to person, place, time, and situation. Cranial nerves II-XII grossly intact. Motor strength 5/5 in all extremities. Sensory grossly intact. Cerebellar exam normal. Normal gait. Vital Signs: 20:00 BP 137 / 94; Pulse 112; Resp 16; Temp 98.6; Pulse Ox 97% on R/A; Weight 131.54 kg; Pain rv 9/10; 21:00 BP 96 / 50; Pulse 92; Resp 17; Pulse Ox 96% on R/A; rv 23:03 BP 107 / 55; Pulse 95; Resp 17; Pulse Ox 97% on R/A; rv [place] Coma Score: 20:57 Eye Response: spontaneous(4). Verbal Response: oriented(5). Motor Response: obeys ma2 commands(6). Total: 15. MDM: 19:41 Patient medically screened. ma2 20:57 Differential diagnosis: cluster headache, migraine, sinusitis, uremia. ma2 21:54 Data reviewed: vital signs, nurses notes. Counseling: I had a detailed discussion with ruben the patient and/or guardian regarding: the historical points, exam findings, and any diagnostic results supporting the discharge/admit diagnosis, the presence of at least one elevated blood pressure reading (>120/80) during this emergency department visit, the need for outpatient follow up. Response to treatment: the patient's symptoms have resolved after treatment. 06/07 20:18 Order name: CBC with Diff; Complete Time: 21:15 [facility] 06[facility] 20:18 Order name: CMP; Complete Time: 21:15 [facility] 06/[facility] 20:18 Order name: CT Head C Spine; Complete Time: 21:54 ma Administered Medications: 20:36 Drug: Benadryl 50 mg Route: IVP; Site: right antecubital; rv 23:05 Follow up: Response: Pain is decreased rv 21:00 Drug: NS 0.9% 1000 ml Route: IV; Rate: 1 bolus; Site: right antecubital; rv 23:05 Follow up: IV Status: Completed infusion rv 21:21 Drug: Reglan 10 mg Route: IVP; Site: right antecubital; rv 23:05 Follow up: Response: Pain is decreased rv 21:31 CANCELLED (Patient Refused): Zofran 4 mg IVP once; over 2 minutes [facility] 21:45 Drug: Dilaudid 1 mg Route: IVP; Site: right antecubital; rv 23:04 Follow up: Response: Pain is decreased rv Disposition: 06/07/18 21:55 Discharged to Home. Impression: Migraine without aura. - Condition is Stable. - Discharge Instructions: Migraine Headache. - Prescriptions for Reglan 10 mg Oral Tablet - take 1 tablet by ORAL route every 6 hours take 30 minutes before meals and at bedtime; 20 tablet. - Medication Reconciliation Form, Thank You Letter, Antibiotic Education, Prescription Opioid Use, SBAR form form. - Follow up: Private Physician; When: Tomorrow; Reason: Continuance of care. Signatures: Dispatcher [employer] EDMS Rocio Gage MD MD ga2 Tom Hunter RN RN rv Corrections: (The following items were deleted from the chart) 21:31 21:31 Zofran 4 mg IVP once; over 2 minutes [place]. [place] [id number] 23:58 21:55 06/07/2018 21:55 Discharged to Home. Impression: Migraine without aura. Condition rv is Stable. Forms are Medication Reconciliation Form, Thank You Letter, Antibiotic Education, Prescription Opioid Use. Follow up: Private Physician; When: Tomorrow; Reason: Continuance of care. ma2
[2018-06-08 01:05] VITALS: TEMP 98.6
[2018-06-08 01:07] VITALS: BP 107/55; O2SAT 97
== END 2018-06-07 23:58 | disposition home or self-care (01) ==
LOC: ER 19:36
DX: G43.009 Migraine without aura, not intractable, without status migrainosus (principal); F17.210 Nicotine dependence, cigarettes, uncomplicated; I10 Essential (primary) hypertension; Z88.1 Allergy status to other antibiotic agents; Z88.3 Allergy status to other anti-infective agents; Z88.5 Allergy status to narcotic agent; Z88.6 Allergy status to analgesic agent; Z88.8 Allergy status to other drugs, medicaments and biological substances
CPT/HCPCS: 36415; 70450; 72125; 80053; 85025; 96361; 96374; 96375; 99284; J1170; J2765; J7030

== ENCOUNTER 2018-07-25 12:16 | Emergency (ER) | payer OTHER ==
--- OUTSIDE RECORDS SUMMARY | 2018-07-25 12:18 | XMS REPORT | Clinical Summary ---
:1985 Author Organization [email or web address] Address [address] [place] [address] Care Team Providers Name Role Phone Rishi [...] Not on file Results Not on fileafter 07/24/2017 Insurance Payer Benefit Plan / Group Subscriber ID Type Phone Address MEDICAID - MEDICAID MEDICAID [employer] xxxxxxxxx Medicaid [facility] CARE Non-Contracted Advance Directives For more information, please contact:[facility] VasquezHenriev[place], [place] [phone] Code Status Date Activated Date Inactivated Comments Full Code 12/23/2016 1:36 AM 12/25/2016 8:43 PM This code status was determined by: Patient
--- OUTSIDE RECORDS SUMMARY | 2018-07-25 12:21 | XMS REPORT | Continuity of Care Document ---
:1985 Author Organization Interface Problems Problem Status Onset Classification Date Comments Source Date Reported HEADACHE Active 05/22/[address] SHUNT Active 11/15/[address] ACUTE HEADACHE Active 11/15/[address] Pressure ulcer Active 10/05/19 Finding 10/08/[address] [facility] right ankle, 18 [facility] [place] Nausea & Active 10/05/19 Finding 10/08/[address] [facility] vomiting 18 [facility] [place] Nausea and Active 10/05/19 Finding 10/08/[address] [facility] vomiting 18 [facility] [place] Decubitus ulcer Active 10/05/19 Finding 10/08/[address] [facility] of right ankle, 18 [facility] stage 3 [place] Chronic Active 05/17/20 Finding 10/08/[address] [facility] indwelling [place] 17 [facility] catheter [place] Sacral ulcer Resolved 05/17/20 Finding 10/08/[address] [facility] [facility] [place] Heel ulcer Active 05/17/20 Finding 10/08/[address] [facility] [facility] [place] Cellulitis Resolved 05/17/20 Finding 10/08/[address] [facility] 17 [facility] [place] Lymphedema Active 05/17/20 Finding 10/08/[address] [facility] 17 [facility] [place] Chronic pain Active 05/17/20 Finding 10/08/[address] [facility] disorder 17 [facility] [place] GERD Active 05/17/20 Finding 10/08/[address] [facility] 17 [facility] [place] Hypertension Active 05/17/20 Finding 10/08/[address] [facility] 17 [facility] [place] Spina bifida Active 05/17/20 Finding 10/08/[address] [facility] 17 [facility] [place] Stage II Resolved 02/03/20 Finding 10/08/[address] [facility] pressure ulcer 16 [facility] - of buttock [place] Urinary tract Resolved 07/22/20 Finding 10/08/[address] [facility] infectious 16 [facility] disease [place] Stage IV Active 02/03/20 Finding 10/08/[address] [facility] pressure ulcer 16 [facility] - of heel [place] Paraplegic Active 02/03/20 Finding 10/08/[address] [facility] spinal paralysis 16 [facility] [place] Malaise Active 04/29/20 Finding 10/08/[address] [facility] 15 [facility] [place] Wound of left Resolved 04/29/20 Finding 10/08/[address] [facility] ankle 15 [facility] [place] Leukocytosis Active 04/29/20 Finding 10/08/[address] [facility] [facility] [place] Rectal Resolved 04/29/20 Finding 10/08/[address] [facility] hemorrhage 15 [facility] [place] Decubitus ulcer, Resolved 06/03/20 Finding 10/08/[address] [facility] infected 14 [facility] [place] Stage III Active Finding 10/08/[address] [facility] pressure ulcer [facility] [place] Ulcer of scrotum Resolved Finding 10/08/[address] [facility] [facility] [place] Poor social Active Finding 10/08/[address] [facility] situation [facility] [place] Pressure ulcer Active Finding 10/08/[address] [facility] of thigh, stage [facility] - 3 [place] Stage III Resolved Finding 10/08/[address] [facility] pressure ulcer [facility] - of heel [place] Pressure ulcer, Inactive Finding 10/08/[address] [facility] stage 3 [facility] [place] Stage II Resolved Finding 10/08/[address] [facility] pressure ulcer [facility] - of left ankle [place] Stage III Active Finding 10/08/[address] [facility] pressure ulcer [facility] - of left ankle [place] Stage II Resolved Finding 10/08/[address] [facility] pressure ulcer [facility] - of right ankle [place] History of Active Finding 10/08/[address] [facility] Clostridium [facility] - difficile [place] colitis Pressure ulcer Resolved Finding 10/08/[address] [facility] of right leg, [facility] stage 2 [place] Pressure ulcer Active Finding 10/08/[address] [facility] of right leg, [facility] - stage 3 [place] Asymptomatic Active Finding 10/08/[address] [facility] bacteriuria [facility] [place] Ulcer of toe Resolved Finding 10/08/[address] [facility] [facility] [place] Incontinence Active Finding 10/08/[address] [facility] without sensory [facility] - awareness [place] Unstageable Resolved Finding 10/08/[address] [facility] pressure sore [facility] [place] Abdominal pain Inactive Finding 10/08/[address] [facility] [facility] [place] Cellulitis of Resolved Finding 10/08/[address] [facility] [place] Clostridium Resolved Finding 10/08/[address] [facility] difficile [facility] - colitis [place] Acute pain Active Problem 11/22/2017 [facility] Asthma Resolved Problem 11/22/2017 [facility] Bronchitis Resolved Problem 11/22/2017 [facility] Cerebral palsy Resolved Problem 11/22/2017 [facility] Headache Active Problem 11/22/2017 [facility] Hydrocephalus Resolved Problem 11/22/2017 [facility] Osteomyelitis Resolved Problem 11/22/2017 [facility] HEADACHE Active [facility] Medications Medication Details Route Status Patient Ordering Order Source Instructions Provider Date Docusate Sodium 100 mg=1 cap, Active [place] 100 MG Oral PO, BID, 0 2017 Medical Capsule Refill(s) [facility] Zosyn 0 Refill(s) Active [facility] 2017 [facility] celecoxib 200 200 mg=1 cap, Active 11/19[facility] [place] mg oral capsule PO, BID, 0 2018 Medical Refill(s) [place] ascorbic acid 500 mg=1 tab, Active 11/19[facility] [place] PO, BID, 0 2017 Medical Refill(s) [place] acetaminophen 1,000 mg=2 tab, Active 11/19[facility] [place] 500 mg oral PO, Q6Hnow, 0 2017 Medical tablet Refill(s) [place] Oxycodone 5 mg=1 tab, PO, Active 11/19[facility] [place] Hydrochloride 5 Q4H, PRN Pain 2018 Medical MG Oral Tablet Score 4-6, 0 Center Refill(s) zinc sulfate 220 mg=1 cap, Active 11/19[facility] [place] 220 mg oral PO, Daily, 0 2018 Medical capsule Refill(s) [place] multivitamin 1 tab, PO, Active 11/19[facility] [place] Daily, 0 2018 Medical Refill(s) [place] methocarbamol 1,000 mg=2 tab, Active 11/19[facility] [place] 500 mg oral PO, Q8H, 0 2018 Medical tablet Refill(s) [place] LORazepam 0.5 0.5 mg=1 tab, Active [place] mg oral tablet PO, Q8H, PRN 2018 Medical Anxiety, 0 Center Refill(s) Lidocaine 3 patch, TOP, Active [place] Hydrochloride Daily, Remove 2018 Medical 0.05 MG/MG after 12 hours, Center Transdermal 0 Refill(s) Patch [Lidoderm] Robaxin 1,000 mg, 2 No Longer [facility] tab, Route: PO, Active 2018 Medical Drug form: TAB, Center Q8H, Dosing Weight 127.027, kg, Start date: 11/17/17 16:00:00 CDT, Duration: 30 day, Stop date: 12/17/17 8:00:00 CDTNotes: (Same as:Robaxin) Oxycodone 10 mg, 2 tab, No Longer [place] Hydrochloride 5 Route: PO, Drug Active 2018 Medical MG Oral Tablet form: TAB, Center Daily, Dosing Weight 127.027, kg, PRN Procedure, Start date: 11/17/17 13:06:00 CDT, Duration: 30 day, Stop date: 12/17/17 13:05:00 CDTNotes: (Same as: Roxicodone) Ativan 0.5 mg, 1 tab, No Longer [facility] Route: PO, Drug Active 2018 Medical form: TAB, Q8H, Center Dosing Weight 127.027, kg, PRN Anxiety, Start date: 11/17/17 10:18:00 CDT, Duration: 7 day, Stop date: 11/24/17 10:17:00 CDTNotes: (Same as: Ativan) Trazodone 50 mg, 1 tab, No Longer [facility] Hydrochloride Route: PO, Drug Active 2018 Medical 50 MG Oral form: TAB, Center Tablet Bedtime, Dosing Weight 127.027, kg, Start date: 11/16/17 21:00:00 CDT, Duration: 30 day, Stop date: 12/15/17 21:00:00 CDTNotes: (Same As: Desyrel) remove patch 3 patch, Route: No Longer [place] TOP, Bedtime, Active 2017 Medical Drug form: Center ERFILM, Start date: 11/16/17 21:00:00 CDT, Duration: 30 day, Stop date: 12/15/17 21:00:00 CDTNotes: Remove patch 12 hours after application each day. Oxycodone 10 mg, 2 tab, Inactive [facility] Hydrochloride 5 Route: PO, Drug 2018 Medical MG Oral Tablet form: TAB, Center ONCE, Dosing Weight 127.027, kg, Start date: 11/16/17 17:01:00 CDT, Stop date: 11/16/17 17:01:00 CDTNotes: (Same as: Roxicodone) Celebrex 200 mg, 1 cap, No Longer [facility] Route: PO, Drug Active 2018 Medical form: CAP, BID, [facility] Dosing Weight 127.027, kg, Start date: 11/16/17 17:00:00 CDT, Duration: 30 day, Stop date: 12/16/17 9:00:00 CDTNotes: NSAID. Please check indication. Not for seizure. (Same As: CeleBREX) Vancomycin 1,500 mg, 250 No Longer [facility] mL, Route: Active 2018 Medical IVPB, Drug Center form: INJ, [id number], Dosing Weight 127.27, kg, Start date: 11/16/17 16:00:00 CDT, Stop date: 11/21/17 8:00:00 CDT, ABX Indication: Skin/Soft Tissue InfectionNotes: TIME CRITICAL MEDICATION Same as: Vancocin-NS (premixed) Infusion rate 2001 mg: infuse over 2.5 hours Lidocaine 3 patch, Route: No Longer [facility] Hydrochloride TOP, Daily, Active 2017 Medical 0.05 MG/MG Drug form: [place] Transdermal FILM, Start Patch date: 11/16/17 [Lidoderm] 9:00:00 CDT, Duration: 7 day, Stop date: 11/22/17 9:00:00 CDT, Remove after 12 hoursNotes: Apply only once for up to 12 hours in a 24-hour period (12 hours on and 12 hours off). (Same as: Lidoderm) "Remove old patch before application of new patch" Phenergan 12.5 mg, 0.5 Inactive [place] mL, Route: 2018 [facility] IVPB, Drug Center form: INJ, ONCE, Dosing Weight 127.027, kg, Priority: NOW, Start date: 11/15/17 17:40:00 CDT, Stop date: 11/15/17 17:40:00 CDTNotes: Do not give IV push. (Same as: Phenergan) Dilaudid 0.5 mg, 0.25 Inactive [place] mL, Route: IVP, 2017 Medical Drug form: INJ, Center ONCE, Dosing Weight 127.027, kg, Priority: NOW, Start date: 11/15/17 17:40:00 CDT, Stop date: 11/15/17 17:40:00 CDTNotes: Same as Dilaudid Tramadol 100 mg, 2 tab, No Longer [facility] Route: PO, Drug Active 2017 Medical form: TAB, Center Q6Hnow, Dosing Weight 127.027, kg, Start date: 11/15/17 17:00:00 CDT, Duration: 30 day, Stop date: 12/15/17 11:00:00 CDTNotes: Not to exceed 400mg/day. (Same As: Ultram) gabapentin 600 mg, 2 cap, No Longer [facility] Route: PO, Drug Active 2017 Medical form: CAP, Center Q8Hnow, Dosing Weight 127.027, kg, Start date: 11/15/17 17:00:00 CDT, Stop date: 12/15/17 9:00:00 CDTNotes: (Same as: Neurontin) Acetaminophen 1,000 mg, 2 No Longer [facility] tab, Route: PO, Active 2017 Medical Drug form: TAB, Center Q6Hnow, Dosing Weight 127.027, kg, Start date: 11/15/17 17:00:00 CDT, Duration: 30 day, Stop date: 12/15/17 11:00:00 CDTNotes: Max acetaminophen 4000 mg/day (4 gm/day). (Same as: Tylenol Extra Strength) Robaxin 500 mg, 1 tab, No Longer [facility] Route: PO, Drug Active 2017 Medical form: TAB, TID, Center Dosing Weight 127.027, kg, Start date: 11/15/17 17:00:00 CDT, Duration: 30 day, Stop date: 12/15/17 13:00:00 CDTNotes: (Same as:Robaxin) Oxycodone 5 mg, 1 tab, No Longer [facility] Hydrochloride 5 Route: PO, Drug Active 2018 [...] 325 MG / 0 Refill(s) Active 2018 Medical Oxycodone Center Hydrochloride 10 MG Oral Tablet [Percocet 10/325] Dilaudid 0.5 mg, 0.25 Inactive [facility] mL, Route: IVP, 2018 Medical Drug form: INJ, Center ONCE, Start date: 11/15/17 11:01:00 CDT, Stop date: 11/15/17 11:01:00 CDT Phenergan 25 mg, 1 tab, Inactive [facility] Route: PO, Drug 2018 Medical form: TAB, [...] Docusate 100 mg, 1 cap, No Longer [facility] Route: PO, Drug Active 2018 Medical form: CAP, BID, Center Dosing Weight 127.27, kg, Start date: 11/15/17 9:00:00 CDT, Duration: 30 day, Stop date: 12/14/17 17:00:00 CDTNotes: (Same as: Colace) (Do Not Crush) Zinc Sulfate 220 mg, 1 cap, No Longer [place] Route: PO, Drug Active 2018 Medical form: CAP, Center Daily, Dosing Weight 127.27, kg, Start date: 11/15/17 9:00:00 CDT, Duration: 30 day, Stop date: 12/14/17 9:00:00 CDTNotes: (Zinc sulfate capsule) - 220 mg Zinc sulfate=50 mg elemental zinc Same as Zinc Sulfate ascorbic acid 500 mg, 1 tab, No Longer [place] Route: PO, Drug Active 2017 Medical form: TAB, BID, Center Dosing Weight 127.27, kg, Start date: 11/15/17 9:00:00 CDT, Duration: 30 day, Stop date: 12/14/17 17:00:00 CDTNotes: (Same as: Vitamin C) multivitamin 1 tab, Route: No Longer [place] PO, Drug Form: Active 2018 Medical TAB, Dosing Center Weight 127.27, kg, Daily, Start date: 11/15/17 9:00:00 CDT, Duration: 30 day, Stop date: 12/14/17 9:00:00 CDTNotes: (Same as:Thera) WASTE: F/P - Black; E - Municipal Trash Bin Take with food. Naproxen 500 mg, 1 tab, Inactive [place] Route: PO, Drug 2017 Medical form: TAB, Center [id number], Dosing Weight 127.27, kg, Start date: 11/15/17 2:00:00 CDT, Duration: 30 day, Stop date: 12/14/17 14:00:00 CDTNotes: (Same as: Naprosyn) Take with food. Zosyn 3.375 gm, No Longer [facility] Route: IVPB, Active 2018 Medical Drug form: [...] Active 2017 Medical Drug form: INJ, Center [id number], Dosing Weight 127.27, kg, Consider for obese [...] date: 12/15/17 1:45:00 CDTNotes: (Same as: [place] 325/5) Do not exceed 4gm/day of acetaminophen. [...] Benadryl) Magnesium 2 gm, 50 mL, Inactive [facility] Sulfate Route: IV, Drug 2017 Medical form: INJ, Center ONCE, Dosing Weight 127.273, kg, Priority: STAT, Start date: 11/14/17 23:26:00 CDT, Stop date: 11/14/17 23:26:00 CDTNotes: WASTE: F/P - Sink; E - Municipal Trash Bin Sodium Chloride 1,000 mL, 1000 Inactive [facility] 0.9% (Bolus) IV ml/hr, Infuse 2018 Medical [...] Extra Strength) Rocephin 1 gm, Route: Inactive 05/04[facility] IVP, Drug form: 2018 Medical PDR/INJ, ONCE, Center Dosing Weight 127.273, kg, Priority: STAT, Start date: 11/14/17 21:21:00 CDT, Stop date: 11/14/17 21:21:00 CDT, ABX Indication: Urinary Tract InfectionNotes: (Same As: Rocephin). MEDICATION WASTE Product Size: 1000 mg Product Wasted: _0__ mg Morphine 4 mg, Route: Inactive [facility] IVP, ONCE, 2018 Medical Dosing Weight Center 127.273, kg, Priority: STAT, Start date: 11/14/17 19:05:00 CDT, Stop date: 11/14/17 19:05:00 CDT Benadryl 25 mg, 0.5 mL, Inactive [facility] Route: IVP, 2017 Medical Drug form: INJ, Center ONCE, Dosing Weight 127.273, kg, Priority: STAT, Start date: 11/14/17 18:14:00 CDT, Stop date: 11/14/17 18:14:00 CDTNotes: (Same as: Benadryl) Benadryl 50 mg, 2 cap, Inactive 11/14[facility] Route: PO, Drug 2017 Medical form: CAP, Center ONCE, Dosing Weight 127.273, kg, Priority: STAT, Start date: 11/14/17 17:56:00 CDT, Stop date: 11/14/17 17:56:00 CDTNotes: (Same as: Benadryl) Morphine 4 mg, 1 mL, Inactive 11/14[facility] Route: IVP, 2017 Medical Drug form: Center SOLN, ONCE, Dosing Weight 127.273, kg, Priority: STAT, Start date: 11/14/17 17:56:00 CDT, Stop date: 11/14/17 17:56:00 CDT Pantoprazole DAILY AT [address] 2016 [facility] [place] Metronidazole Q8H Active [facility] 2016 [facility] [place] Codeine/Apap EVERY [address] NEEDED PRN 2015 [facility] For Pain [place] Oxycodone FOUR TIMES Active [facility] St[facility] Hcl/Acetaminoph DAILY 2016 [facility] [place] Meropenem Q8H Active [facility] St[facility] 2013 [facility] [place] Collagenase DAILY Active Johnson [facility] St[facility] 2013 [facility] [place] Ciprofloxacin Q12H Active Scott [facility] St. 400mg Iv 2013 [facility] [place] Amikacin Sulf DAILY Active Scott [facility] St[facility] 2013 [facility] [place] Linezolid TWICE DAILY Inactive [facility] St[facility] 2013 [facility] [place] Allergies, Adverse Reactions, Alerts Substance Category Reaction Severity Reaction Status Date Comments Source type Reported levofloxacin Hives Moderate Allergy to Active [facility] St[facility] Substance 8 [facility] [place] sulfamethoxa Hives Moderate Allergy to Active [facility] St[facility] zole Substance 8 [facility] [place] ketorolac Nausea/Vo Allergy to Active [facility] St. tromethamine [place] Substance 8 [facility] [place] vancomycin Hives Allergy to Active [facility] St[facility] Substance 8 [facility] [place] ondansetron Nausea/Vo Mild Propensity Active [facility] St[facility] miting to adverse 8 [facility] reactions [place] ciprofloxaci Nausea/Vo Propensity Active [facility] St[facility] n miting to adverse 8 [facility] [place] doxycycline Nausea/Vo Propensity Active [facility] St[facility] miting to adverse 8 [facility] [place] morphine Assertion Drug Active [facility] amoxicillin Assertion Drug Active [facility] Toradol Assertion Drug Active [facility] Minocin Assertion Drug Active [facility] Zofran Assertion Drug Active [facility] Levaquin Assertion Drug Active [facility] Bactrim Assertion Drug Active [facility] Immunizations Immunization Date Given Site Status Last Updated Comments Source Results Order Name Results Value Reference Date Interpretation Comments Source Range Brain-Outs Brain-Outsid EXAM: CT BRAIN WITHOUT CONTRAST -- OUTSIDE CONSULT 05/22 - [facility] justina e Consult - Medical Consult CT This report was dictated by a Professional Skater/Fellow. I have personally reviewed the images as Center well as the Resident's interpretation and agree with the findings. 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 205 images. Imaging was performed at [facility] on 05/22/2018. IV contrast: None. FINDINGS: Overall [...] agrees with the preliminary report by the client services vice president. CHEM PANEL B/C Ratio 17 6 - 25 11/[address] CHEM PANEL Globulin 4.3 g/dL 2.7 - 4.2 11/[address] CHEM PANEL A/G Ratio 0.7 0.7 - 1.6 11/[address] CHEM PANEL AGAP 14.4 meq/L 10.0 - 11/19 [facility] 20.0 [facility] CHEM PANEL eGFR 113 11/19 Result Comment: The eGFR is calculated using the CKD-EPI formula. In most young, healthy individuals the eGFR will be >90 mL/ min/1.73m2. The eGFR declines with age. An eGFR of 60-89 may be normal in [facility] mL/min/1.7 some populations, particularly the elderly, for whom the CKD-EPI formula has not been extensively validated. Use of the eGFR is not recommended in the following populations: [address] Individuals with unstable creatinine concentrations, including [...] Alk Phos 76 unit/L 39 - 136 05/ [address] CHEM PANEL ALT 35 unit/L 0 - 65 / [address] CHEM PANEL Albumin Lvl 2.8 g/dL 3.5 - 5.0 / [address] CHEM PANEL Total 7.1 g/dL 6.4 - 8.4 11/19 [facility] Protein [address] CHEM PANEL Calcium Lvl 8.7 mg/dL 8.5 - 10.5 11/[address] CHEM PANEL AST 18 unit/L 0 - 37 / [address] CHEM PANEL Bili Total 0.3 mg/dL 0.2 - 1.3 11/[address] CHEM PANEL Potassium 4.4 meq/L 3.5 - 5.1 11/19 [facility] [address] [place] [address] CHEM PANEL Chloride Lvl 109 meq/L 95 - 109 11/[address] CHEM PANEL CO2 23 meq/L 24 - 32 / [address] CHEM PANEL Glucose Lvl 114 mg/dL 70 - 99 11/[address] CHEM PANEL Creatinine 1.01 mg/dL 0.50 - 11/19 [facility] 1.40 /[address] [place] [address] CHEM PANEL BUN 17 mg/dL 7 - 22 11/[address] CHEM PANEL Sodium Lvl 142 meq/L 135 - 145 11/[address] HEMATOLOGY Basophils 0.6 % 0.0 - 1.0 / [address] HEMATOLOGY Segs-Bands # 4.8 K/CMM 1.5 - 8.1 11/[address] HEMATOLOGY Monocytes # 0.7 K/CMM 0.0 - 0.8 / [address] HEMATOLOGY Lymphocytes 1.9 K/CMM 1.0 - 5.5 / [address] HEMATOLOGY Monocytes 9.4 % 2.0 - 12.0 / [address] HEMATOLOGY Eosinophils 0.2 K/CMM 0.0 - 0.5 11/19 [facility] # /2017 [facility] HEMATOLOGY Eosinophils 2.9 % 0.0 - 4.0 11/19 [facility] HEMATOLOGY Segs 62.2 % 45.0 - 11/19 [place] 75.0 [facility] HEMATOLOGY Lymphocytes 24.9 % 20.0 - 11/19 [place] 40.0 [facility] HEMATOLOGY MCH 27.5 pg 27.0 - 11/19 [place] 31.0 [facility] HEMATOLOGY MCV 85.3 fL 80.0 - 11/19 [place] 94.0 [facility] HEMATOLOGY Hct 43.9 % 42.0 - 11/19 [place] 54.0 [facility] HEMATOLOGY Hgb 14.2 g/dL 14.0 - 11/19 18.0 [facility] HEMATOLOGY WBC 7.7 K/CMM 3.7 - 10.4 11/19 [facility] HEMATOLOGY RBC 5.15 M/CMM 4.70 - 11/19 [place] 6.10 [facility] HEMATOLOGY MPV 8.4 fL 7.4 - 10.4 11/19 [facility] HEMATOLOGY MCHC 32.3 g/dL 32.0 - 11/19 [place] 36.0 [facility] HEMATOLOGY RDW 17.3 % 11.5 - 11/19 14.5 [facility] HEMATOLOGY Platelet 317 K/CMM 133 - 450 11/[address] CHEM PANEL Globulin 4.4 g/dL 2.7 - 4.2 11/18 2017 [facility] CHEM PANEL A/G Ratio 0.6 0.7 - 1.6 11/18 [facility] CHEM PANEL B/C Ratio 17 6 - 25 11/18 [facility] CHEM PANEL AGAP 11.3 meq/L 10.0 - 11/18 20.0 [facility] CHEM PANEL eGFR 134 11/18 Result Comment: The eGFR is calculated using the CKD-EPI formula. In most young, healthy individuals the eGFR will be >90 mL/ min/1.73m2. The eGFR declines with age. An eGFR of 60-89 may be normal in [facility] mL/min/1.7 some populations, particularly the elderly, for whom the CKD-EPI formula has not been extensively validated. Use of the eGFR is not recommended in the following populations: [address] Individuals with unstable creatinine concentrations, including [...] PANEL Creatinine 0.84 mg/dL 0.50 - 11/18 [facility] Lvl 1.40 [facility] CHEM PANEL Sodium Lvl 142 meq/L 135 - 145 11/[address] CHEM PANEL Glucose Lvl 99 mg/dL 70 - 99 11/[address] CHEM PANEL BUN 14 mg/dL 7 - 22 11/[address] CHEM PANEL Alk Phos 79 unit/L 39 - 136 11/[address] CHEM PANEL Bili Total 0.3 mg/dL 0.2 - 1.3 11/[address] CHEM PANEL AST 14 unit/L 0 - 37 11/[address] CHEM PANEL ALT 43 unit/L 0 - 65 11/[address] CHEM PANEL Total 7.1 g/dL 6.4 - 8.4 11/18 [facility] Protein [address] CHEM PANEL Albumin Lvl 2.7 g/dL 3.5 - 5.0 11/[address] CHEM PANEL Calcium Lvl 9.2 mg/dL 8.5 - 10.5 11/[address] CHEM PANEL CO2 21 meq/L 24 - 32 11/[address] CHEM PANEL Potassium 4.3 meq/L 3.5 - 5.1 11/18 [facility] Lvl [address] [place] [address] CHEM PANEL Chloride Lvl 114 meq/L 95 - 109 11/[address] HEMATOLOGY MCHC 32.5 g/dL 32.0 - 11/18 [facility] 36.0 [facility] HEMATOLOGY RDW 17.5 % 11.5 - 11/18 [facility] 14.5 [facility] HEMATOLOGY Platelet 400 K/CMM 133 - 450 11/[address] HEMATOLOGY MPV 8.5 fL 7.4 - 10.4 11/[address] HEMATOLOGY WBC 6.6 K/CMM 3.7 - 10.4 11/[address] [place] [address] HEMATOLOGY RBC 5.17 M/CMM 4.70 - 11/18 [facility] 6.10 [facility] HEMATOLOGY MCV 86.1 fL 80.0 - 11/18 [facility] 94.0 [facility] HEMATOLOGY Hct 44.5 % 42.0 - 11/18 [facility] 54.0 [facility] HEMATOLOGY MCH 28.0 pg 27.0 - 11/18 [facility] 31.0 [facility] HEMATOLOGY Hgb 14.5 g/dL 14.0 - 11/18 [facility] 18.0 [facility] HEMATOLOGY Lymphocytes 1.7 K/CMM 1.0 - 5.5 11/18 [facility] HEMATOLOGY Monocytes # 0.7 K/CMM 0.0 - 0.8 11/[address] HEMATOLOGY Eosinophils 0.2 K/CMM 0.0 - 0.5 11/18 [facility] HEMATOLOGY Lymphocytes 26.1 % 20.0 - 11/18 [facility] 40.0 [facility] HEMATOLOGY Segs 59.3 % 45.0 - 11/18 [facility] 75.0 [facility] HEMATOLOGY Basophils 0.8 % 0.0 - 1.0 11/[address] HEMATOLOGY Monocytes 10.5 % 2.0 - 12.0 11/[address] HEMATOLOGY Eosinophils 3.3 % 0.0 - 4.0 11/18 [facility] [address] HEMATOLOGY Segs-Bands # 3.9 K/CMM 1.5 - 8.1 11/[address] TOXICOLOGY Vanco Tr TND 15:30pm 11/[address] TOXICOLOGY Vanco Tr 9.1 ug/ml 11/[address] CHEM PANEL Glucose Lvl 74 mg/dL 70 - 99 11/[address] CHEM PANEL BUN 12 mg/dL 7 - 22 11/[address] CHEM PANEL Creatinine 0.75 mg/dL 0.50 - 11/17 [facility] Lvl 1.40 [facility] CHEM PANEL eGFR 140 11/17 Result Comment: The eGFR is calculated using the CKD-EPI formula. In most young, healthy individuals the eGFR will be >90 mL/ min/1.73m2. The eGFR declines with age. An eGFR of 60-89 may be normal in [facility] mL/min/1. some populations, particularly the elderly, for whom the CKD-EPI formula has not been extensively validated. Use of the eGFR is not recommended in the following populations: [address] Individuals with unstable creatinine concentrations, including [...] Lvl 2.9 g/dL 3.5 - 5.0 11/[address] CHEM PANEL Globulin 4.4 g/dL 2.7 - 4.2 11/[address] CHEM PANEL A/G Ratio 0.7 0.7 - 1.6 11/[address] CHEM PANEL Bili Total 0.4 mg/dL 0.2 - 1.3 11/[address] CHEM PANEL Alk Phos 71 unit/L 39 - 136 11/[address] CHEM PANEL AST 15 unit/L 0 - 37 11/[address] CHEM PANEL ALT 28 unit/L 0 - 65 11/[address] CHEM PANEL Potassium 4.4 meq/L 3.5 - 5.1 11/17 [facility] [address] [place] [address] CHEM PANEL Sodium Lvl 147 meq/L 135 - 145 11/[address] CHEM PANEL CO2 25 meq/L 24 - 32 11/[address] CHEM PANEL Chloride Lvl 114 meq/L 95 - 109 / [address] CHEM PANEL B/C Ratio 16 6 - 25 11/[address] CHEM PANEL Calcium Lvl 8.7 mg/dL 8.5 - 10.5 11/[address] CHEM PANEL AGAP 12.4 meq/L 10.0 - 05/ [facility] 20.0 [facility] CHEM PANEL Total 7.3 g/dL 6.4 - 8.4 11/17 [facility] [place] [facility] [address] HEMATOLOGY Platelet 345 K/CMM 133 - 450 05 [facility] HEMATOLOGY MPV 8.7 fL 7.4 - 10.4 11/17 [facility] HEMATOLOGY WBC 6.9 K/CMM 3.7 - 10.4 11/17 [facility] HEMATOLOGY RBC 5.30 M/CMM 4.70 - 11/17 6.10 [facility] HEMATOLOGY MCHC 32.8 g/dL 32.0 - 11/17 36.0 [facility] HEMATOLOGY MCH 27.9 pg 27.0 - 11/17 31.0 [facility] HEMATOLOGY Hgb 14.8 g/dL 14.0 - 11/17 18.0 [facility] HEMATOLOGY MCV 85.0 fL 80.0 - 11/17 [facility] 94.0 [facility] HEMATOLOGY Hct 45.1 % 42.0 - 11/17 54.0 [facility] HEMATOLOGY RDW 17.5 % 11.5 - 11/17 14.5 [facility] HEMATOLOGY Eosinophils 0.2 K/CMM 0.0 - 0.5 11/17 [facility] # [facility] HEMATOLOGY Lymphocytes 2.0 K/CMM 1.0 - 5.5 11/17 [facility] HEMATOLOGY Monocytes # 0.7 K/CMM 0.0 - 0.8 05 [facility] HEMATOLOGY Eosinophils 2.4 % 0.0 - 4.0 11/17 [facility] HEMATOLOGY Basophils 0.6 % 0.0 - 1.0 11/[address] [place] [address] HEMATOLOGY Segs-Bands # 4.0 K/CMM 1.5 - 8.1 11/17 [facility] HEMATOLOGY Monocytes 10.4 % 2.0 - 12.0 11/17 [facility] HEMATOLOGY RBC Morph Normal 11/17 [facility] (11/17/17 2:07 AM) [place] HEMATOLOGY Segs 58.1 % 45.0 - 11/17 75.0 [facility] HEMATOLOGY Plt Morph Normal 11/17 [facility] (11/17/17 2:07 AM) [place] HEMATOLOGY Lymphocytes 28.5 % 20.0 - 11/17 [place] 40.0 [facility] HEMATOLOGY Basophils # 0.1 K/CMM 0.0 - 0.2 11/16 [facility] HEMATOLOGY Polychrom Moderate None Seen 11/16 [facility] [place] (11/16/17 11:07 AM) TOXICOLOGY Vanco Tr TND * 11/[address] TOXICOLOGY Vanco Tr 22.3 ug/ml 11/[address] CHEM PANEL Magnesium 2.3 mg/dL 1.8 - 2.4 11/15 [facility] CHEM PANEL Phosphorus 3.5 mg/dL 2.5 - 4.5 11/[address] HEMATOLOGY PT 14.0 s 12.0 - 11/15 [facility] 14. [facility] HEMATOLOGY PTT 37.6 s 22.9 - 11/15 [facility] 35. [facility] HEMATOLOGY INR 1.08 0.85 - 11/15 [facility] 1. [facility] IMMUNOLOGY C-REACTIVE 13.1 mg/L <=2.9 mg/L 11/15 [facility] PROTEIN [facility] IMMUNOLOGY Prealbumin 25.2 mg/dL 18.0 - 11/15 [facility] 45.0 [facility] CHEM PANEL Lactic Acid 0.9 mMol/L 0.5 - 2.2 11/15 [facility] HEMATOLOGY Sed Rate 5 mm/h 0 - 15 11/[address] IMMUNOLOGY C-REACTIVE 15.8 mg/L <=2.9 mg/L 11/15 [facility] PROTEIN [address] HEMATOLOGY PT 13.0 s 12.0 - 11/15 [facility] 14. [facility] HEMATOLOGY INR 0.98 0.85 - 11/15 [facility] 1. [facility] HEMATOLOGY PTT 33.2 s 22.9 - 11/15 [facility] 35. [facility] BLOOD BANK Antibody Negative 11/14 [facility] RESULTS Scrn [facility] (11/14/17 6:51 PM) [place] BLOOD BANK ABO/Rh AB POS 11/14 [facility] RESULTS [address] [place] [address] URINE AND UA 0.2 EU/dL 0.1 - 1.0 11/14 [facility] STOOL Urobilinogen /[address] [place] [address] URINE AND UA Nitrite Negative Negative 11/14 [facility] STOOL [facility] (11/14/17 6:35 PM) [place] URINE AND UA Glucose Negative Negative 11/14 [facility] (11/14/17 6:35 PM) [place] URINE AND UA Ketones Negative Negative 11/14 [place] [address] Medical *NA* Center (11/14/17 6:35 PM) URINE AND UA Bili Negative Negative 11/14 [facility] [address] [place] [address] *NA* [place] (11/14/17 6:35 PM) URINE AND UA Blood Trace Negative 11/14 [facility] *ABN* [place] (11/14/17 6:35 PM) URINE AND UA Leuk Est Small Negative 11/14 [facility] *ABN* [place] (11/14/17 6:35 PM) URINE AND UA Spec Grav 1.020 <=1.030 11/[address] URINE AND UA pH 6.0 5.0 - 8.0 11/[address] URINE AND UA Color Yellow Yellow 11/14 [facility] [address] [place] [address] *NA* [place] (11/14/17 6:35 PM) URINE AND UA Protein Trace Negative 11/14 [facility] *ABN* [place] (11/14/17 6:35 PM) URINE AND UA Turbidity Slight Cloudy Clear 11/[address] (11/14/17 6:35 PM) [place] URINE AND UA Hyal Cast 0-2 0 - 2 11/[address] (11/14/17 6:35 PM) [place] URINE AND UA Bacteria Occasional None Seen 11/14 [facility] /HPF /HPF /2017 [facility] URINE AND UA RBC 11-20 /HPF 0 - 2 11/[address] URINE AND UA Sq Epi Occasional Few /LPF 11/14 [facility] /LPF /[address] [place] [address] URINE AND UA WBC 51-100 None Seen 11/14 [facility] /HPF /HPF /[address] [place] [address] HEMATOLOGY Basophils # 0.1 K/CMM 0.0 - 0.2 11/[address] HEMATOLOGY Polychrom Slight 11/[address] HEMATOLOGY Plt Morph Normal 11/[address] (11/14/17 6:20 PM) [place] Brain Brain shunt EXAM: SKULL 2 VIEWS 11/14 - [facility] shunt series DX /2017 - Medical series DX EXAM: CHEST 2 VIEWS This report was dictated by a Professional Skater/Fellow. I have personally reviewed the images as [...] EXAM: CT BRAIN WITHOUT CONTRAST 11/14 - [facility] contrast contrast CT /2017 - Medical CT This report was dictated by a Professional Skater/Fellow. I have personally reviewed the images as Center well as the Resident's interpretation and agree with the findings. DATE: 11/14/2017 627 PM CDT Read by: Josemanuel Hoyt MD Resident: Josemanuel Hoyt MD Dictated Date/time: 11/14/17 18:45 Electronically Signed by: Jovan Talley MD 11/14/17 21:12 FINAL REPORT INDICATION: 32-year-old male patient with history of vp research shunt malfunction COMPARISON: CT of the brain 07/30/2014, 03/27/2013. TECHNIQUE: Axial CT images of the brain were obtained. Sagittal and coronal reformats. IV contrast: None. FINDINGS: An orphaned right occipital approach LEAD DRIVER shunt is present. Also present is a right frontal approach LEAD DRIVER shunt with tip in the left lateral ventricle. Narrowing of the lateral ventricles is present, unchanged from 07/30/2014. 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 No recent hemorrhage or territorial infarct. No mass. No midline shift. No scalp fluid collections. Sinuses are clear. IMPRESSION: No acute intracranial abnormality. Adequately decompressed ventricular system. Chest Chest 1view EXAM: XR CHEST 1 VIEW 11/14 - [facility] 1view DX DX /2017 - Medical This report was dictated by a Professional Skater/Fellow. I have personally reviewed the images as [...] SVC. No acute cardiopulmonary abnormality is observed. Laboratory Sodium Level 142 mEq/L 135 - 145 10/07 [facility] St. Studies /2017 [facility] [place] [facility] Potassium 4.4 mEq/L 3.6 - 5.0 10/07 [facility] St. Studies Level /2017 [facility] [place] [facility] Magnesium 1.8 mg/dL 1.8 - 2.5 10/07 [facility] St[facility] Studies Level /2017 [facility] [place] [facility] Glucose 126 mg/dL 65 - 120 10/07 [facility] St[facility] Studies Level /2017 [facility] [place] [facility] Estimat null 90 10/07 [facility] St[facility] Studies Glomerular /2017 [facility] Filtration [place] Rate Laboratory Creatinine 0.83 mg/dL 0.61 - 10/07 [facility] St. Studies 1.24 [facility] [place] [facility] Chloride 108 mEq/L 101 - 111 10/07 [facility]. Studies Level /2017 [facility] [place] [facility] Carbon 27 mEq/L 21 - 31 10/07 [facility]. Studies Dioxide /2017 [facility] Level [place] [facility] Calcium 9.1 mg/dL 8.5 - 10.5 10/07 [facility]. Studies Level /2017 [facility] [place] [facility] Blood Urea 15 mg/dL 6 - 20 10/07 [facility]. Studies Nitrogen /2017 [facility] [place] [facility] White Blood 7.0 K/uL 4.3 - 10.9 10/07 [facility]. Studies Count /2017 [facility] [place] [facility] Red Cell 17.4 % 12.1 - 10/07 [facility]. Studies Distribution 15.2 [facility] Width [place] [facility] Red Blood 5.14 M/uL 4.33 - 10/07 [facility]. Studies Count 5.43 [facility] [place] [facility] Platelet 270 K/uL 152 - 406 10/07 [facility]. Studies Count /2017 [facility] [place] [facility] Neutrophils 62.3 % 41.7 - 10/07 [facility]. Studies % 73.7 /2017 [facility] [place] [facility] Monocytes % 9.3 % 3.3 - 12.3 10/07 [facility]. Studies /2017 [facility] [place] [facility] Mean 8.3 fL 7.6 - 11.3 10/07 [facility]. Studies Platelet /2017 [facility] Volume [place] [facility] Mean 82.8 fL 80 - 100 10/07 [facility]. Studies Corpuscular /2017 [facility] Volume [place] [facility] Mean 33.4 g/dL 32.0 - 10/07 [facility]. Studies Corpuscular 36.0 [facility] Hemoglobin [place] Concent Laboratory Mean 27.6 pg 27.0 - 10/07 [facility]. Studies Corpuscular 35.0 /2017 [facility] Hemoglobin [place] [facility] Lymphocytes 24.6 % 15.3 - 10/07 [facility]. Studies % 44.8 /2017 [facility] [place] [facility] Hemoglobin 14.2 g/dL 13.6 - 10/07 [facility] St. Studies 17.9 /2017 [facility] [place] [facility] Hematocrit 42.6 % 39.6 - 10/[address] [facility] [address] Studies 49.0 [facility] [place] [facility] Eosinophils 3.3 % 0 - 4.4 10/07 [facility] St. Studies % /2017 [facility] [place] [facility] Basophils % 0.5 % 0 - 1.3 10/07 [facility] St. Studies /2017 [facility] [place] [facility] Absolute 4.4 K/uL 1.8 - 8.0 10/07 [facility] St. Studies Neutrophil /2017 [facility] [place] [facility] Absolute 0.7 K/uL 0.1 - 1.3 10/07 [facility] St. Studies Monocytes /2017 [facility] (CBC) [place] [facility] Absolute 1.7 K/uL 0.7 - 4.9 10/07 [facility] St. Studies Lymphocytes /2017 [facility] (CBC) [place] [facility] Absolute 0.2 K/uL 0 - 0.5 10/07 [facility] St. Studies Eosinophils [facility] (CBC) [place] [facility] Absolute 0.0 K/uL 0 - 0.5 10/07 [facility] St. Studies Basophils [facility] (CBC) [place] Microbiolo Providencia Providenci 10/06 [facility] St. gy Studies Rettgeri a Rettgeri /2017 [facility] [place] [facility] Urine WBC null 10/04 [facility] St. Studies /2017 [facility] [place] [facility] Urine null 10/04 [facility] St. Studies Squamous /2017 [facility] Epithelial [place] Cells Laboratory Urine RBC Urine RBC 10/04 [facility] St. Studies /2017 [facility] [place] [facility] Urine Urine 10/04 [facility] St. Studies Culture Culture /2017 [facility] Reflexed Reflexed [place] [facility] Urine null 10/04 [facility] St. Studies Bacteria /2017 [facility] [place] [facility] Urine pH 6.5 10/04 [facility] St. Studies /2018 [facility] [place] [facility] Urine 2.0 mg/dL 10/04 [facility] St. Studies Urobilinogen /2017 [facility] [place] [facility] Urine Total Urine 10/04 [facility] St. Studies Protein Total /2017 [facility] Protein [place] [facility] Urine 1.020 10/04 [facility] St. Studies Specific /2017 [facility] [place] [facility] Urine Urine 10/04 [facility] St. Studies Nitrite Nitrite /2017 [facility] [place] [facility] Urine Urine 10/04 [facility] St. Studies Leukocyte Leukocyte /2017 [facility] Esterase Esterase [place] [facility] Urine Urine 10/[address] Studies Ketones Ketones [facility] [place] [facility] Urine Urine 10/04 [facility] Studies Glucose Glucose [facility] [place] [facility] Urine Color Urine 10/04 [facility]. Studies Color /2017 [facility] [place] [facility] Urine Blood Urine 10/04 [facility]. Studies Blood [facility] [place] [facility] Urine Urine 10/04 [facility]. Studies Bilirubin Bilirubin [facility] [place] [facility] Urine Urine 10/04 [facility]. Studies Appearance Appearance /2017 [facility] [place] [facility] Prothrombin 13.0 9.5 - 12.5 10/03 [facility] Studies Time SECONDS [facility] [place] [facility] INR 1.10 10/03 [facility]. Studies Internationa /2017 [facility] l Normalized [place] Ratio Laboratory Total 1.9 mg/dL 0.3 - 1.2 10/03 [facility] Studies Bilirubin /2017 [facility] [place] [facility] Serum Total 7.8 g/dL 6.0 - 8.3 10/03 [facility]. Studies Protein /2017 [facility] [place] [facility] Globulin 4.2 g/dL 2.3 - 3.5 10/03 [facility]. Studies /2017 [facility] [place] [facility] Direct 0.6 mg/dL 0 - 0.2 10/03 [facility] Studies Bilirubin /2017 [facility] [place] [facility] Aspartate 88 IU/L 10 - 42 10/03 [facility]. Studies Amino Transf /2017 [facility] (AST/SGOT) [place] [facility] Alkaline 192 IU/L 42 - 121 10/03 [facility]. Studies Phosphatase /2017 [facility] [place] [facility] Albumin/Glob 0.9 1.1 - 1.8 10/03 [facility] Studies ulin Ratio /2017 [facility] [place] [facility] Albumin 3.6 g/dL 3.2 - 5.5 10/03 [facility]. Studies /2017 [facility] [place] [facility] Alanine 135 IU/L 10 - 60 10/03 [facility]. Studies Aminotransfe /2017 [facility] rase [place] (ALT/SGPT) Laboratory Procalcitoni 0.44 ng/mL 10/03 [facility]. Studies n [facility] [place] [facility] B-Type 20 pg/ml 10/03 [facility]. Studies Natriuretic /2017 [facility] Peptide [place] [facility] Lipase 22 U/L 22 - 51 10/[address] Studies [facility] [place] [facility] Rapid null 10/03 [facility] St. Studies Troponin I [facility] [place] [facility] Lactic Acid 8.6 mg/dL 4.5 - 19.8 10/[address] Studies Level [facility] [place] Microbiolo Morganella Morganella 09/[address] gy Studies Morganii Morganii [facility] [place] [facility]olo Proteus Proteus 09/07 [facility] St[facility] gy Studies Mirabilis Mirabilis [facility] [place] [facility] Activated 32.2 24.3 - 09/01 [facility] St. Studies Partial SECONDS 36.9 [facility] Thromboplast [place] Time Vital Signs Vital Sign Value Date Comments Source Temperature Oral (F) 97.2 F 11/19/2017 [facility] Systolic (mm Hg) 127 11/19/2017 [facility] Diastolic (mm Hg) 85 11/19/2017 [facility] Heart Rate 81 11/19/2017 [facility] Respitory Rate 18 11/19/2017 [facility] Heart Rate 90 11/19/2017 [facility] Systolic (mm Hg) 106 11/19/2017 [facility] Diastolic (mm Hg) 71 11/19/2017 [facility] Respitory Rate 18 11/19/2017 [facility] Temperature Oral (F) 98.1 F 11/19/2017 [facility] Respitory Rate 18 11/19/2017 [facility] Systolic (mm Hg) 168 11/19/2017 [facility] Diastolic (mm Hg) 107 11/19/2017 [facility] Heart Rate 87 11/19/2017 [facility] Temperature Oral (F) 98.1 F 11/19/2017 [facility] Weight 127.027 11/18/2017 [facility] Weight 127.027 11/17/2017 [facility] Weight 127.027 11/15/2017 [facility] BMI Calculated 48.16 11/15/2017 [facility] Height 162.56 cm 11/15/2017 [facility] Height 149.86 cm 11/14/2017 [facility] BMI Calculated 56.67 11/14/2017 [facility] Heart Rate 85 10/07/2017 [facility] [place] Systolic (mm Hg) 145 10/07/2017 [facility] [place] Diastolic (mm Hg) 66 10/07/2017 [facility] [place] Temperature Oral (F) 97.7 F 10/07/2017 [facility] [place] Respitory Rate 16 10/07/2017 [facility] [place] Height 59 10/06/2017 [facility] [place] Weight 280 10/06/2017 [facility] [place] Encounters Location Location Encounter Encounter Reason Attending ADM DC Status Source Details Type Number For Provider Date Date Visit [facility] [id number] 07/11 07/[address] [facility] Rec[facility]ring [facility]2016 [facility] [place] [facility] [id number] 08/08 08/14 [facility] [place] [facility] [facility] Departed [id number] 09/01 09/[address] [facility] Emergency /2017 [facility] [place] [facility] Dis[facility] [id number] 09/10 09/11 [facility]2017 [facility] [place] [facility] Registered [id number] 09[facility]26 [facility]2017 [facility] [place] [facility] Dis[facility] [id number] 10/04 10/07 [facility]2017 [facility] [place] [facility] Inpatient [id number] [place] 11/14 11/19 [facility] /2017 [facility] Procedures Procedure Code Date Perfomer Comments Source Chest Single View [id number] [facility] [place] Gram Stain [id number] [facility] - [facility] [place] Culture & Sensitivity [id number] [facility] [place] - [facility] [place] Anaerobic Blood [id number] [facility] [place] - Culture 8 [place] Aerobic [facility] Culture [id number] [facility] [place] - [facility] [place] Chest Single View [id number] [facility] [place] Gram Stain [id number] [facility] - [facility] [place] Culture & Sensitivity [id number] [facility] [place] Chest Single View [id number] [facility] - [facility] [place] Cholecystectomy [id number] [facility] Shunt of cerebral [id number] [facility] ventricle to [facility] extracranial site
--- OUTSIDE RECORDS SUMMARY | 2018-07-25 12:23 | XMS REPORT ---
:1985 Author Organization [employer] Care Team Providers Name Role Phone Gamble, [...] headache, R51 Active unspecified headache type Problem RESUME SPECIALIST (ventriculoperitoneal) shunt Z98.2 Active status Medications No Known Medications Results No Known Results Summary Purpose [employer] [facility] Submission
--- OUTSIDE RECORDS SUMMARY | 2018-07-25 12:23 | XMS REPORT ---
:1985 Author Organization [employer] Care Team Providers Name Role Phone Gamble, [...] headache, R51 Active unspecified headache type Problem SKIMMER (ventriculoperitoneal) shunt Z98.2 Active status Medications No Known Medications Results No Known Results Summary Purpose [facility] Submission
--- OUTSIDE RECORDS SUMMARY | 2018-07-25 12:23 | XMS REPORT ---
:1985 Author Organization [facility] Address [address] [place] [address] [address]. [address] [place] [address] Care Team Providers Name Role Phone JAQUELIN GENAO Unavailable Unavailable Problems This patient has no known problems. Allergies, Adverse Reactions, Alerts This patient has no known allergies or adverse reactions. Medications This patient has no known medications. Results Test Description Test Time Test Comments Text Results Atomic Results Result Comments BLOOD CULTURE 2016-12-28 16:22:00 Test Item Value Reference Range Comments CULTURE (BEAKER) (test xfnt=2773) No growth in 5 days BLOOD [id number] 16:22:00 Test Item Value Reference Range Comments CULTURE (BEAKER) (test plgw=5796) No growth in 5 days (MANUAL DIFFERENTIAL)2016-12-25 22:29:00 Test Item Value Reference Range Comments TOTAL COUNTED (BEAKER) (test slun=4716) WBC MORPHOLOGY (BEAKER) (test iukc=826) Normal PLT MORPHOLOGY (BEAKER) (test yknr=932) Normal RBC MORPHOLOGY (BEAKER) (test suoi=042) Normal CBC W/PLT COUNT & AUTO [id number] 22:28:00 Test Item Value Reference Range Comments WHITE BLOOD CELL COUNT (BEAKER) (test cmod=319) 7.3 K/ L 4.0-10.0 RED BLOOD CELL COUNT (BEAKER) (test hqxz=089) 5.09 M/ L 4.20-5.80 HEMOGLOBIN (BEAKER) (test hihh=746) 13.0 GM/DL 13.0-16.8 HEMATOCRIT (BEAKER) (test afcm=307) 42.3 % 40.0-50.0 MEAN CORPUSCULAR VOLUME (BEAKER) (test oics=595) 83.0 fL 82.0-98.0 MEAN CORPUSCULAR HEMOGLOBIN (BEAKER) (test 25.6 pg 27.0-33.0 hudp=490) MEAN CORPUSCULAR HEMOGLOBIN CONC (BEAKER) (test 30.8 GM/DL 32.0-36.0 lawa=919) RED CELL DISTRIBUTION WIDTH (BEAKER) (test 18.0 % 10.3-14.2 trvr=581) PLATELET COUNT (BEAKER) (test jytg=446) 331 K/CU MM 150-430 MEAN PLATELET VOLUME (BEAKER) (test qfcv=337) 8.5 fL 6.5-10.5 NUCLEATED RED BLOOD CELLS (BEAKER) (test 0 /100 WBC 0-0 epcj=659) NEUTROPHILS RELATIVE PERCENT (BEAKER) (test 65 % ntmy=663) LYMPHOCYTES RELATIVE PERCENT (BEAKER) (test 23 % lmtu=837) MONOCYTES RELATIVE PERCENT (BEAKER) (test 8 % dkry=306) EOSINOPHILS RELATIVE PERCENT (BEAKER) (test 3 % hlqs=586) BASOPHILS RELATIVE PERCENT (BEAKER) (test 1 % qiwb=356) NEUTROPHILS ABSOLUTE COUNT (BEAKER) (test 4.75 K/ L 1.80-8.00 expq=394) LYMPHOCYTES ABSOLUTE COUNT (BEAKER) (test 1.68 K/ L 1.48-4.50 pqcr=778) MONOCYTES ABSOLUTE COUNT (BEAKER) (test 0.55 K/ L 0.00-1.30 pxjf=405) EOSINOPHILS ABSOLUTE COUNT (BEAKER) (test 0.24 K/ L 0.00-0.50 wfwf=703) BASOPHILS ABSOLUTE COUNT (BEAKER) (test 0.05 K/ L 0.00-0.20 olii=757) 0.000.520.000.000.000.00BASI METABOLIC [id number] 11:11:00 Test Item Value Reference Range Comments SODIUM (BEAKER) (test 138 meq/L 136-145 ylxo=291) POTASSIUM (BEAKER) (test 4.0 meq/L 3.5-5.1 lfvm=350) CHLORIDE (BEAKER) (test 108 meq/L 98-107 blwz=402) CO2 (BEAKER) (test 23 meq/L 22-29 ryee=642) BLOOD UREA NITROGEN 11 mg/dL 7-21 (BEAKER) (test boic=458) CREATININE (BEAKER) (test 0.74 mg/dL 0.57-1.25 ubnu=716) GLUCOSE RANDOM (BEAKER) 124 mg/dL 70-105 (test lmni=810) CALCIUM (BEAKER) (test 8.9 mg/dL 8.4-10.2 qgmz=354) EGFR (BEAKER) (test 150 mL/min/1.73 sq m ESTIMATED GFR IS NOT sdyb=2134) ACCURATE CREATININE CLEARANCE IN PREDICTING GLOMERULAR FILTRATION RATE. ESTIMATED GFR IS NOT APPLICABLE FOR DIALYSIS PATIENTS. URINE [id number] 09:56:00 Test Item Value Reference Range Comments CULTURE (BEAKER) (test wbdb=9645) <10,000 col/mL skin marilee COMPREHENSIVE METABOLIC [id number] 08:49:00 Test Item Value Reference Range Comments TOTAL PROTEIN (BEAKER) 7.3 gm/dL 6.0-8.3 (test bslx=937) ALBUMIN (BEAKER) (test 3.3 g/dL 3.5-5.0 oswx=1522) ALKALINE PHOSPHATASE 89 U/L 40-150 (BEAKER) (test qaxf=877) BILIRUBIN TOTAL (BEAKER) 1.4 mg/dL 0.2-1.2 (test diwq=560) SODIUM (BEAKER) (test 137 meq/L 136-145 rcby=103) POTASSIUM (BEAKER) (test 3.7 meq/L 3.5-5.1 zjks=295) CHLORIDE (BEAKER) (test 108 meq/L 98-107 grkv=413) CO2 (BEAKER) (test 17 meq/L 22-29 owsg=481) BLOOD UREA NITROGEN 12 mg/dL 7-21 (BEAKER) (test vmmt=679) CREATININE (BEAKER) (test 0.78 mg/dL 0.57-1.25 xmcc=279) GLUCOSE RANDOM (BEAKER) 119 mg/dL 70-105 (test gmvk=178) CALCIUM (BEAKER) (test 8.6 mg/dL 8.4-10.2 ghby=759) AST (SGOT) (BEAKER) (test 13 U/L 5-34 etbu=878) ALT (SGPT) (BEAKER) (test 28 U/L 6-55 ccrv=114) EGFR (BEAKER) (test 141 mL/min/1.73 sq ESTIMATED GFR IS NOT ituu=6745) m ACCURATE CREATININE CLEARANCE IN PREDICTING GLOMERULAR FILTRATION RATE. ESTIMATED GFR IS NOT APPLICABLE FOR DIALYSIS PATIENTS. CBC W/PLT COUNT & AUTO [id number] 08:46:00 Test Item Value Reference Range Comments WHITE BLOOD CELL COUNT (BEAKER) (test adrt=334) 9.4 K/ L 4.0-10.0 RED BLOOD CELL COUNT (BEAKER) (test jdof=152) 4.79 M/ L 4.20-5.80 HEMOGLOBIN (BEAKER) (test ghrn=149) 12.8 GM/DL 13.0-16.8 HEMATOCRIT (BEAKER) (test njng=428) 40.0 % 40.0-50.0 MEAN CORPUSCULAR VOLUME (BEAKER) (test qncl=752) 83.4 fL 82.0-98.0 MEAN CORPUSCULAR HEMOGLOBIN (BEAKER) (test 26.7 pg 27.0-33.0 jcdo=367) MEAN CORPUSCULAR HEMOGLOBIN CONC (BEAKER) (test 32.0 GM/DL 32.0-36.0 qzqv=432) RED CELL DISTRIBUTION WIDTH (BEAKER) (test 18.2 % 10.3-14.2 ogjq=366) PLATELET COUNT (BEAKER) (test pmld=656) 313 K/CU MM 150-430 MEAN PLATELET VOLUME (BEAKER) (test cztb=803) 8.6 fL 6.5-10.5 NUCLEATED RED BLOOD CELLS (BEAKER) (test 0 /100 WBC 0-0 pkwl=491) NEUTROPHILS RELATIVE PERCENT (BEAKER) (test 70 % edlq=232) LYMPHOCYTES RELATIVE PERCENT (BEAKER) (test 16 % rltb=500) MONOCYTES RELATIVE PERCENT (BEAKER) (test 12 % krmt=562) EOSINOPHILS RELATIVE PERCENT (BEAKER) (test 1 % uujf=992) BASOPHILS RELATIVE PERCENT (BEAKER) (test 1 % hjhb=448) NEUTROPHILS ABSOLUTE COUNT (BEAKER) (test 6.54 K/ L 1.80-8.00 zasj=514) LYMPHOCYTES ABSOLUTE COUNT (BEAKER) (test 1.50 K/ L 1.48-4.50 uhsy=655) MONOCYTES ABSOLUTE COUNT (BEAKER) (test 1.13 K/ L 0.00-1.30 njxf=968) EOSINOPHILS ABSOLUTE COUNT (BEAKER) (test 0.13 K/ L 0.00-0.50 brad=177) BASOPHILS ABSOLUTE COUNT (BEAKER) (test 0.06 K/ L 0.00-0.20 cmlp=788) 0.00URINALYSIS W/ [id number] 20:36:00 Test Item Value Reference Range Comments COLOR (BEAKER) (test jmin=580) Yellow CLARITY (BEAKER) (test iuay=201) Hazy SPECIFIC GRAVITY UA (BEAKER) (test cjiz=859) 1.012 1.001-1.035 PH UA (BEAKER) (test htni=097) 5.5 5.0-8.0 PROTEIN UA (BEAKER) (test bntn=802) 100 mg/dL Negative GLUCOSE UA (BEAKER) (test povb=439) Negative Negative KETONES UA (BEAKER) (test cdov=005) Negative Negative BILIRUBIN UA (BEAKER) (test ldql=957) Negative Negative BLOOD UA (BEAKER) (test mzkt=816) Moderate Negative NITRITE UA (BEAKER) (test hiyv=222) Negative Negative LEUKOCYTE ESTERASE UA (BEAKER) (test icud=791) Large Negative UROBILINOGEN UA (BEAKER) (test qsco=053) 3.0 mg/dL 0.2-1.0 RBC UA (BEAKER) (test xijq=677) 19 /HPF WBC UA (BEAKER) (test prkr=688) 182 /HPF SOURCE(BEAKER) (test lpgq=6967) BASIC METABOLIC [id number] 17:00:00 Test Item Value Reference Range Comments SODIUM (BEAKER) (test 140 meq/L 136-145 jicv=064) POTASSIUM (BEAKER) (test 3.7 meq/L 3.5-5.1 nrsr=685) CHLORIDE (BEAKER) (test 112 meq/L 98-107 nkve=478) CO2 (BEAKER) (test 17 meq/L 22-29 okfk=803) BLOOD UREA NITROGEN 23 mg/dL 7-21 (BEAKER) (test ezip=216) CREATININE (BEAKER) (test 1.00 mg/dL 0.57-1.25 buof=287) GLUCOSE RANDOM (BEAKER) 102 mg/dL 70-105 (test ypkb=255) CALCIUM (BEAKER) (test 8.7 mg/dL 8.4-10.2 mxkj=347) EGFR (BEAKER) (test 106 mL/min/1.73 sq m ESTIMATED GFR IS NOT onyi=5706) ACCURATE CREATININE CLEARANCE IN PREDICTING GLOMERULAR FILTRATION RATE. ESTIMATED GFR IS NOT APPLICABLE FOR DIALYSIS PATIENTS. Specimen slightly ictericCBC W/PLT COUNT & AUTO [id number] 12:18 :00 Test Item Value Reference Range Comments WHITE BLOOD CELL COUNT (BEAKER) (test rnvs=437) 16.4 K/ L 4.0-10.0 RED BLOOD CELL COUNT (BEAKER) (test imwz=052) 5.22 M/ L 4.20-5.80 HEMOGLOBIN (BEAKER) (test zguq=128) 14.4 GM/DL 13.0-16.8 HEMATOCRIT (BEAKER) (test vsul=935) 42.9 % 40.0-50.0 MEAN CORPUSCULAR VOLUME (BEAKER) (test hxyt=325) 82.2 fL 82.0-98.0 MEAN CORPUSCULAR HEMOGLOBIN (BEAKER) (test 27.5 pg 27.0-33.0 gupi=586) MEAN CORPUSCULAR HEMOGLOBIN CONC (BEAKER) (test 33.5 GM/DL 32.0-36.0 dmur=057) RED CELL DISTRIBUTION WIDTH (BEAKER) (test 16.2 % 10.3-14.2 yjev=014) PLATELET COUNT (BEAKER) (test rhny=354) 329 K/CU MM 150-430 MEAN PLATELET VOLUME (BEAKER) (test whit=215) 8.2 fL 6.5-10.5 NUCLEATED RED BLOOD CELLS (BEAKER) (test 0 /100 WBC 0-0 oowx=598) NEUTROPHILS RELATIVE PERCENT (BEAKER) (test 83 % mlgo=777) LYMPHOCYTES RELATIVE PERCENT (BEAKER) (test 7 % keee=968) MONOCYTES RELATIVE PERCENT (BEAKER) (test 9 % xrko=247) EOSINOPHILS RELATIVE PERCENT (BEAKER) (test 0 % lhaj=478) BASOPHILS RELATIVE PERCENT (BEAKER) (test 0 % dihp=716) NEUTROPHILS ABSOLUTE COUNT (BEAKER) (test 1.62 K/ L 1.80-8.00 oyme=380) LYMPHOCYTES ABSOLUTE COUNT (BEAKER) (test 1.15 K/ L 1.48-4.50 lbbo=994) MONOCYTES ABSOLUTE COUNT (BEAKER) (test 1.56 K/ L 0.00-1.30 aptz=339) EOSINOPHILS ABSOLUTE COUNT (BEAKER) (test 0.01 K/ L 0.00-0.50 ythg=380) BASOPHILS ABSOLUTE COUNT (BEAKER) (test 0.02 K/ L 0.00-0.20 fubm=470) (MANUAL DIFFERENTIAL)2016-12-23 12:18:00 Test Item Value Reference Range Comments TOTAL COUNTED (BEAKER) (test vpul=6235) WBC MORPHOLOGY (BEAKER) (test iuqr=702) Normal PLT MORPHOLOGY (BEAKER) (test ilwb=155) Normal RBC MORPHOLOGY (BEAKER) (test bifw=372) Normal
--- OUTSIDE RECORDS SUMMARY | 2018-07-25 12:23 | XMS REPORT ---
[...] ulcer stage Problem Paraplegia G82.20 Active Assessment PIECE GOODS CLERK (ventriculoperitoneal) shunt Z98.2 Active status Problem Nausea [...] headache, R51 Active unspecified headache type Problem PIECE GOODS CLERK (ventriculoperitoneal) shunt Z98.2 Active status Problem Episodic tension-type headache, not G44.219 Active intractable Problem Lumbar spina bifida with Q05.2 Active hydrocephalus Problem Foot ulcer L97.509 Active Problem Nicotine dependence F17.200 Active Problem Dependence on wheelchair Z99.3 Active Medications Medication Code Code Instructions Start End Status Dosage System Date Date Macrobid [facility] 91765165424 100 MG Orally Active 1 capsule every 12 hrs with food Tylenol with [facility] 35379019424 300-60 MG Active 1 tablet as Codeine #4 Orally every 6 needed hrs Pantoprazole ND 46210557874 40 MG Orally Active 1 tablet Sodium Once a day Citalopram [facility] 26575912795 10 MG Orally Active 1 tablet Hydrobromide Once a day Collagenase [facility] [address]-15 250 UNIT/GM Active 1 application Externally to affected Once a day area Seroquel [facility] 44060612642 25 MG Orally Active 1 tablet Once a day at bedtime Results No Known Results Summary Purpose eClinicalWorks Submission
--- OUTSIDE RECORDS SUMMARY | 2018-07-25 12:23 | XMS REPORT ---
[...] tension-type headache, not G44.219 Active intractable Assessment CNA CAREGIVER (ventriculoperitoneal) shunt Z98.2 Active status Assessment Ulcer [...] vomiting not specified, unspecified vomiting type Problem CNA CAREGIVER (ventriculoperitoneal) shunt Z98.2 Active status Medications Medication Code Code Instructions Start End Status Dosage System Date Date Tylenol with [facility] 02516792497 300-60 MG Active 1 tablet as Codeine #4 Orally every 6 needed hrs Macrobid [facility] 42148141141 100 MG Orally Active 1 capsule every 12 hrs with food Pantoprazole ND 66217391074 40 MG Orally Active 1 tablet Sodium Once a day Collagenase [facility] [address]-98 250 UNIT/GM Active 1 application Externally to affected Once a day area Results No Known Results Summary Purpose eClinicalWorks Submission
--- OUTSIDE RECORDS SUMMARY | 2018-07-25 12:23 | XMS REPORT ---
[...] hydrocephalus Problem Bipolar depression F31.30 Active Assessment CODING VALIDATOR (ventriculoperitoneal) shunt Z98.2 Active status Problem Depression [...] spina bifida with Q05.2 Active hydrocephalus Problem CODING VALIDATOR (ventriculoperitoneal) shunt Z98.2 Active status Problem Nicotine dependence F17.200 Active Medications Medication Code Code Instructions Start End Status Dosage System Date Date Collagenase [facility] [address]-41 250 UNIT/GM Active 1 application Externally to affected Once a day area Macrobid [facility] 70146838602 100 MG Orally Active 1 capsule every 12 hrs with food Tylenol with [facility] 61717159879 300-60 MG Active 1 tablet as Codeine #4 Orally every 6 needed hrs Citalopram [facility] 87298545398 10 MG Orally January Active 1 tablet Hydrobromide Once a day 2017 Pantoprazole [facility] 63901589516 40 MG Orally Active 1 tablet Sodium Once a day Seroquel [facility] 00419497846 25 MG Orally January Active 1 tablet Once a day at 16, bedtime 2017 Results No Known Results Summary Purpose eClinicalWorks Submission
[2018-07-25 13:34] LABS: Urine Bacteria >50 /HPF (NONE SEEN); Urine Culture Reflex Order REFLEXED
[2018-07-25] MEDS ORDERED: HYDROMORPHONE HCL 1 MG/ML INJ ONE (13:58)
[2018-07-25] MEDS ORDERED: LIDOCAINE 1% MPF 2 ML AMPULE ONE (13:59)
[2018-07-25] MEDS ORDERED: CEFTRIAXONE 1000 MG/VIAL ONE (13:59)
[2018-07-25 15:00] LABS: Urine Blood 2+ (NEG); Urine Glucose NEGATIVE (NEG); Urine Protein 2+ (NEG); Urine pH 6.5 (5.0-7.0)
--- NOTE | 2018-07-25 15:02 | EDPHYS ---
Physician Documentation [facility] Name: Roland Feldman Jr Age: 33 yrs Sex: Male : 1985 Arrival Date: 07/25/2018 Time: 12:17 Bed 28 Private MD: ED Physician Jan Vang HPI: 07/25 14:53 This 33 yrs old Black Male presents to ER via Wheelchair with complaints of foul gs smelling urine r sided pain. 14:53 Onset: The symptoms/episode began/occurred today. Associated signs and symptoms: gs Pertinent negatives: fever. Severity of symptoms: At their worst the symptoms were moderate, in the emergency department the symptoms are unchanged. The patient has experienced similar episodes in the past, a few times. says sp tube was backed up for 1/2 a day got tube changed, says urine now smells foul mild amount of r flank pain. Historical: - Allergies: 12:35 Amoxicillin; ph 12:35 Bactrim; ph 12:35 Ciprofloxacin; ph 12:35 CLAVULANIC ACID; ph 12:35 Doxycycline; ph 12:35 Levofloxacin; ph 12:35 Morphine; ph 12:35 Toradol; ph 12:35 TRIMETHOPRIM; ph 12:35 Vancomycin; ph 12:35 Zofran; ph - PMHx: 12:35 Asthma; Cerebral Palsy; cluster headaches; decubitus ulcers on feet; GERD; ph Hydrocephalus; Hypertension; spina bifida; - PSHx: 12:35 SHUNT REVISION 2002; AMPUTATION OF LOWER LIMB 2001; ph - Immunization history:: Adult Immunizations unknown. - Social history:: Smoking status: Patient uses tobacco products, smokes one-half pack cigarettes per day. - Ebola Screening: : No symptoms or risks identified at this time. ROS: 14:53 Constitutional: Negative for fever. gs 14:53 All other systems are negative. Exam: 14:53 Head/Face: Normocephalic, atraumatic. Cardiovascular: Regular rate and rhythm with a gs normal S1 and S2. No gallops, murmurs, or rubs. Normal PMI, no JVD. No pulse deficits. Respiratory: Lungs have equal breath sounds bilaterally, clear to auscultation and percussion. No rales, rhonchi or wheezes noted. No increased work of breathing, no retractions or nasal flaring. Abdomen/GI: Soft, non-tender, with normal bowel sounds. No distension or tympany. No guarding or rebound. No evidence of tenderness throughout. 14:53 Constitutional: The patient appears alert, awake. 14:53 Back: CVA tenderness, that is mild. 14:53 Musculoskeletal/extremity: Exam is negative for acute changes. 14:53 Skin: Exam negative for acute changes. Vital Signs: 12:35 BP 136 / 94; Pulse 103; Resp 20; Temp 98.7(TE); Pulse Ox 97% on R/A; Weight 125.19 kg; ph 14:33 BP 131 / 87; Pulse 96; Resp 16; Temp 98.3; Pulse Ox 95% on R/A; ag4 MDM: 13:37 Patient medically screened. 14:53 Differential diagnosis: UTI, urinary retention, [place] catheter problem. Data reviewed: vital signs, nurses notes. Response to treatment: the patient's symptoms have markedly improved after treatment, and as a result, I will discharge patient. 07/25 12:59 Order name: Urine Microscopic Only; Complete Time: 13:37 07/25 13:35 Order name: Urine Culture [facility] 07/25 13:35 Order name: Urine Dipstick--Ancillary (enter results) 07/25 12:59 Order name: Urine Dipstick-Ancillary (obtain specimen); Complete Time: 13:17 07/25 15:03 Order name: Diet Regular; Complete Time: 15:04 tl3 Administered Medications: 13:45 Drug: Dilaudid 1 mg Route: IM; Site: left deltoid; tl3 14:24 Follow up: Response: No adverse reaction; Pain is decreased tl3 14:00 Drug: Rocephin (cefTRIAXone) 1 grams Route: IM; Site: left vastus lateralis; tl3 14:24 Follow up: Response: No adverse reaction tl3 14:23 CANCELLED (Duplicate Order): Rocephin - (cefTRIAXone) 1 grams IVPB once over 30 mins; tl3 (mix in 50 mL NS) 15:21 Drug: [place] 10 mg-325 mg 1 tabs Route: PO; tl3 16:58 Follow up: Response: No adverse reaction; Pain is decreased tl3 Disposition: 07/25/18 15:01 Discharged to Home. Impression: Acute tubulo-interstitial nephritis. - Condition is Stable. - Discharge Instructions: Pyelonephritis, Adult. - Prescriptions for cefpodoxime 200 mg Oral Tablet - take 1 tablet by ORAL route every 12 hours for 10 days with food; 20 tablet. - Medication Reconciliation Form, Thank You Letter, Antibiotic Education, Prescription Opioid Use form. - Follow up: Private Physician; When: 2 - 3 days; Reason: Re-evaluation by your physician. Signatures: Dispatcher [employer] Cleopatra Anderson RN RN Jan Vang MD MD Lupe Rg RN RN tl3 Corrections: (The following items were deleted from the chart) 14:23 13:38 Rocephin - (cefTRIAXone) 1 grams IVPB once over 30 mins; (mix in 50 mL NS) tl3 ordered. 16:57 15:01 07/25/2018 15:01 Discharged to Home. Impression: Acute tubulo-interstitial tl3 nephritis. Condition is Stable. Forms are Medication Reconciliation Form, Thank You Letter, Antibiotic Education, Prescription Opioid Use. Follow up: Private Physician; When: 2 - 3 days; Reason: Re-evaluation by your physician.
--- NOTE | 2018-07-25 15:02 | ER ---
Nurse's Notes [facility] Name: Roland Feldman Jr Age: 33 yrs Sex: Male : 1985 Arrival Date: 07/25/2018 Time: 12:17 Bed 28 Private MD: Diagnosis: Acute tubulo-interstitial nephritis Presentation: 07/25 12:32 Presenting complaint: Patient states: R flank pain that radiates to RLQ, also reports ph nausea, denies V/D or fever, states, " My suprapubic catheter stopped draining last night. They put a new one in and it's draining now but my urine looks cloudy.". Transition of care: patient was not received from another setting of care. Onset of symptoms was July 25, 2018. Risk Assessment: Do you want to hurt yourself or someone else? Patient reports no desire to harm self or others. Initial Sepsis Screen: Does the patient meet any 2 criteria? No. Patient's initial sepsis screen is negative. Does the patient have a suspected source of infection? Yes: Catheter related infection ([place]/dialysis/PICC/central line). Care prior to arrival: None. 12:32 Method Of Arrival: Wheelchair ph 12:32 Acuity: YUKI 3 ph Historical: - Allergies: 12:35 Amoxicillin; ph 12:35 Bactrim; ph 12:35 Ciprofloxacin; ph 12:35 CLAVULANIC ACID; ph 12:35 Doxycycline; ph 12:35 Levofloxacin; ph 12:35 Morphine; ph 12:35 Toradol; ph 12:35 TRIMETHOPRIM; ph 12:35 Vancomycin; ph 12:35 Zofran; ph - PMHx: 12:35 Asthma; Cerebral Palsy; cluster headaches; decubitus ulcers on feet; GERD; ph Hydrocephalus; Hypertension; spina bifida; - PSHx: 12:35 SHUNT REVISION 2002; AMPUTATION OF LOWER LIMB 2001; ph - Immunization history:: Adult Immunizations unknown. - Social history:: Smoking status: Patient uses tobacco products, smokes one-half pack cigarettes per day. - Ebola Screening: : No symptoms or risks identified at this time. Screenin:02 Abuse screen: Denies threats or abuse. Nutritional screening: No deficits noted. tl3 Tuberculosis screening: No symptoms or risk factors identified. Fall Risk Secondary diagnosis (15 points) impaired mobility, pt is wheelchair bound. Assessment: 13:02 General: Appears distressed, uncomfortable, Behavior is cooperative, appropriate for 3 age, anxious. Pain: Complains of pain in right flank and right abdomen Pain currently is 9 out of 10 on a pain scale. at worst was 10 out of 10 on a pain scale. Neuro: Level of Consciousness is awake, alert, obeys commands, Oriented to person, place, time, situation, Appropriate for age. Cardiovascular: Patient's skin is warm and dry. Respiratory: Airway is patent Respiratory effort is even, unlabored, Respiratory pattern is regular, symmetrical. GI: Abdomen is round. : Pres[place] in place Reports Supra pubic catheter stopped working last night, replaced this morning at custodial, urine is cloudy. EENT: No signs and/or symptoms were reported regarding the EENT system. Derm: No signs and/or symptoms reported regarding the dermatologic system. 13:16 Reassessment: urine collected from [place] at upper [place] and sent to lab. 3 14:25 Reassessment: Patient and/or family updated on plan of care and expected duration. Pain tl3 level reassessed. Patient is alert, oriented x 3, equal unlabored respirations, skin warm/dry/pink. pt has no needs at this time. 14:32 Reassessment: Contacted [facility] to arrange transport of pt back to [facility] facility. 16:56 Reassessment: No changes from previously documented assessment. Patient and/or family tl3 updated on plan of care and expected duration. Pain level reassessed. Patient is alert, oriented x 3, equal unlabored respirations, skin warm/dry/pink. 16:57 GI: Bowel sounds present X 4 quads. Abd is non tender. tl3 Vital Signs: 12:35 BP 136 / 94; Pulse 103; Resp 20; Temp 98.7(TE); Pulse Ox 97% on R/A; Weight 125.19 kg; ph 14:33 BP 131 / 87; Pulse 96; Resp 16; Temp 98.3; Pulse Ox 95% on R/A; ag4 ED Course: 12:17 Patient arrived in ED. as 12:34 Triage completed. ph 12:35 Arm band placed on Patient placed in waiting room, Patient notified of wait time. ph 12:59 Jan Vang MD is Attending Physician. gs 13:02 Lupe Rg, RN is Primary Nurse. tl3 13:02 Patient has correct armband on for positive identification. Bed in low position. Call tl3 light in reach. Side rails up X2. Warm blanket given. Pillow given. 13:02 No provider procedures requiring assistance completed. tl3 13:16 Urine collected: Presley catheter specimen, cloudy. tl3 13:17 Urine Microscopic Only Sent. tl3 14:25 Awaiting transportation. tl3 14:25 Patient did not have IV access during this emergency room visit. tl3 Administered Medications: 13:45 Drug: Dilaudid 1 mg Route: IM; Site: left deltoid; tl3 14:24 Follow up: Response: No adverse reaction; Pain is decreased tl3 14:00 Drug: Rocephin (cefTRIAXone) 1 grams Route: IM; Site: left vastus lateralis; tl3 14:24 Follow up: Response: No adverse reaction tl3 14:23 CANCELLED (Duplicate Order): Rocephin - (cefTRIAXone) 1 grams IVPB once over 30 mins; tl3 (mix in 50 mL NS) 15:21 Drug: [place] 10 mg-325 mg 1 tabs Route: PO; tl3 16:58 Follow up: Response: No adverse reaction; Pain is decreased tl3 Outcome: 15:01 Discharge ordered by . 16:56 Discharged to Rehab Facility tl3 16:56 Condition: stable 16:56 Discharge instructions given to patient, Instructed on discharge instructions, follow up and referral plans. medication usage, Demonstrated understanding of instructions, follow-up care, medications, Prescriptions given X 1. 16:57 Patient left the ED. tl3 Signatures: Liliya Stephens Patricia, RN RN Jan Vang MD MD Lupe Rg, RN RN tl3 Andreas Yao ag4
[2018-07-25] MEDS ORDERED: HYDROCODONE/APAP 10/325 TAB ONE (15:17)
[2018-07-25 17:21] VITALS: BP 131/87; TEMP 98.3; O2SAT 95
== END 2018-07-25 16:57 | disposition home or self-care (01) ==
LOC: ER 12:16
DX: N10 Acute pyelonephritis (principal); Q05.9 Spina bifida, unspecified; G80.9 Cerebral palsy, unspecified; F17.210 Nicotine dependence, cigarettes, uncomplicated
CPT/HCPCS: 81003; 81015; 87077; 87086; 87088; 87186; 96372; 99283; J1170; J2001

== ENCOUNTER 2018-08-01 18:12 | Emergency (ER) | payer OTHER ==
--- OUTSIDE RECORDS SUMMARY | 2018-08-01 18:14 | XMS REPORT | Clinical Summary ---
:1985 Author Organization [employer] [address] [place] [address] Care Team Providers Name Role Phone Rishi [...] Not on file Results Not on fileafter 07/31/2017 Insurance Payer Benefit Plan / Group Subscriber ID Type Phone Address MEDICAID - MEDICAID MEDICAID [employer] xxxxxxxxx Medicaid [employer] CARE Non-Contracted Advance Directives For more information, please contact:[facility] Vasquez[address], [place] [phone] Code Status Date Activated Date Inactivated Comments Full Code 12/23/2016 1:36 AM 12/25/2016 8:43 PM This code status was determined by: Patient
--- OUTSIDE RECORDS SUMMARY | 2018-08-01 18:17 | XMS REPORT | Continuity of Care Document ---
:1985 Author Organization Interface Problems Problem Status Onset Classification Date Comments Source Date Reported HEADACHE Active 05/22/[address] SHUNT Active 11/15/[address] ACUTE HEADACHE Active 11/15/[address] Pressure ulcer Active 10/05/19 Finding 10/08/2017 [...] colitis [place] Acute pain Active Problem 11/22/[address] [facility] Asthma Resolved Problem 11/22/[address] [facility] Bronchitis Resolved Problem 11/22/[address] [facility] Cerebral palsy Resolved Problem 11/22/[address] [facility] Headache Active Problem 11/22/[address] [facility] Hydrocephalus Resolved Problem 11/22/[address] [facility] Osteomyelitis Resolved Problem 11/22/2017 [facility] - [facility] HEADACHE Active [facility] Medications Medication Details Route Status Patient Ordering Order Source Instructions Provider Date Docusate Sodium 100 mg=1 cap, Active [place] 100 MG Oral PO, BID, 0 2017 Medical Capsule Refill(s) [place] Zosyn 0 Refill(s) Active [facility] 2017 [facility] celecoxib 200 200 mg=1 cap, Active 11/19[facility] [place] mg oral capsule PO, BID, 0 2018 Medical Refill(s) [place] ascorbic acid 500 mg=1 tab, Active 11/19[facility] [place] PO, BID, 0 2017 Medical Refill(s) [place] acetaminophen 1,000 mg=2 tab, Active 11/19[facility] [place] 500 mg oral PO, Q6Hnow, 0 2017 Medical tablet Refill(s) [place] Oxycodone 5 mg=1 tab, PO, Active 11/19[facility] [place] Hydrochloride 5 Q4H, PRN Pain 2018 Medical MG Oral Tablet Score 4-6, 0 Center Refill(s) zinc sulfate 220 mg=1 cap, Active 11/19[facility] [place] 220 mg oral PO, Daily, 0 2018 Medical capsule Refill(s) [place] multivitamin 1 tab, PO, Active 11/19[facility] [place] Daily, 0 2018 Medical Refill(s) [place] methocarbamol 1,000 mg=2 tab, Active 11/19[facility] [place] 500 mg oral PO, Q8H, 0 2018 Medical tablet Refill(s) [place] LORazepam 0.5 0.5 mg=1 tab, Active [place] mg oral tablet PO, Q8H, PRN 2018 Medical Anxiety, 0 Center Refill(s) Lidocaine 3 patch, TOP, Active [place] Hydrochloride Daily, Remove 2018 Medical 0.05 MG/MG after 12 hours, Center Transdermal 0 Refill(s) Patch [Lidoderm] Robaxin 1,000 mg, 2 No Longer [facility] tab, Route: PO, Active 2018 Medical Drug [...] Ativan 0.5 mg, 1 tab, No Longer [facility] Route: PO, Drug Active 2018 Medical form: TAB, Q8H, Center Dosing Weight 127.027, kg, PRN Anxiety, Start date: 11/17/17 10:18:00 CDT, Duration: 7 day, Stop date: 11/24/17 10:17:00 CDTNotes: (Same as: Ativan) Trazodone 50 mg, 1 tab, No Longer [facility] Hydrochloride Route: PO, Drug Active 2018 Medical [...] day. Oxycodone 10 mg, 2 tab, Inactive [facility] Hydrochloride 5 Route: PO, Drug 2018 Medical MG Oral Tablet form: TAB, Center ONCE, Dosing Weight 127.027, kg, Start date: 11/16/17 17:01:00 CDT, Stop date: 11/16/17 17:01:00 CDTNotes: (Same as: Roxicodone) Celebrex 200 mg, 1 cap, No Longer [facility] Route: PO, Drug Active 2018 Medical form: CAP, BID, [place] Dosing Weight 127.027, kg, Start date: 11/16/17 17:00:00 CDT, Duration: 30 day, Stop date: 12/16/17 9:00:00 CDTNotes: NSAID. Please check indication. Not for seizure. (Same As: CeleBREX) Vancomycin 1,500 mg, 250 No Longer [place] mL, Route: Active 2018 Medical IVPB, Drug Center form: INJ, [id number], Dosing Weight 127.27, kg, Start date: 11/16/17 16:00:00 CDT, Stop date: 11/21/17 8:00:00 CDT, ABX Indication: Skin/Soft Tissue InfectionNotes: TIME CRITICAL MEDICATION Same as: Vancocin-NS (premixed) Infusion rate 2001 mg: infuse over 2.5 hours Lidocaine 3 patch, Route: No Longer [facility] Hydrochloride TOP, Daily, Active 2017 Medical 0.05 MG/MG Drug form: [place] Transdermal FILM, Start Patch date: 11/16/17 [Lidoderm] 9:00:00 CDT, Duration: 7 day, Stop date: 11/22/17 9:00:00 CDT, Remove after 12 hoursNotes: Apply only once for up to 12 hours in a 24-hour period (12 hours on and 12 hours off). (Same as: Lidoderm) "Remove old patch before application of new patch" Phenergan 12.5 mg, 0.5 Inactive [place] mL, Route: 2018 [facility] IVPB, Drug Center form: INJ, ONCE, Dosing Weight 127.027, kg, Priority: NOW, Start date: 11/15/17 17:40:00 CDT, Stop date: 11/15/17 17:40:00 CDTNotes: Do not give IV push. (Same as: Phenergan) Dilaudid 0.5 mg, 0.25 Inactive [place] mL, Route: IVP, 2017 Medical Drug form: INJ, Center ONCE, Dosing Weight 127.027, kg, Priority: NOW, Start date: 11/15/17 17:40:00 CDT, Stop date: 11/15/17 17:40:00 CDTNotes: Same as Dilaudid Tramadol 100 mg, 2 tab, No Longer [facility] Route: PO, Drug Active 2017 Medical form: TAB, Center Q6Hnow, Dosing Weight 127.027, kg, Start date: 11/15/17 17:00:00 CDT, Duration: 30 day, Stop date: 12/15/17 11:00:00 CDTNotes: Not to exceed 400mg/day. (Same As: Ultram) gabapentin 600 mg, 2 cap, No Longer [facility] Route: PO, Drug Active 2017 Medical form: CAP, Center Q8Hnow, Dosing Weight 127.027, kg, Start date: 11/15/17 17:00:00 CDT, Stop date: 12/15/17 9:00:00 CDTNotes: (Same as: Neurontin) Acetaminophen 1,000 mg, 2 No Longer [facility] tab, Route: PO, Active 2017 Medical Drug form: TAB, Center Q6Hnow, Dosing Weight 127.027, kg, Start date: 11/15/17 17:00:00 CDT, Duration: 30 day, Stop date: 12/15/17 11:00:00 CDTNotes: Max acetaminophen 4000 mg/day (4 gm/day). (Same as: Tylenol Extra Strength) Robaxin 500 mg, 1 tab, No Longer [facility] Route: PO, Drug Active 2017 Medical form: TAB, TID, Center Dosing Weight 127.027, kg, Start date: 11/15/17 17:00:00 CDT, Duration: 30 day, Stop date: 12/15/17 13:00:00 CDTNotes: (Same as:Robaxin) Oxycodone 5 mg, 1 tab, No Longer [facility] Hydrochloride 5 Route: PO, Drug Active 2018 [...] CDT Phenergan 25 mg, 1 tab, Inactive [facility] Route: PO, Drug 2018 Medical form: TAB, [...] Docusate 100 mg, 1 cap, No Longer [facility] Route: PO, Drug Active 2018 Medical form: CAP, BID, Center Dosing Weight 127.27, kg, Start date: 11/15/17 9:00:00 CDT, Duration: 30 day, Stop date: 12/14/17 17:00:00 CDTNotes: (Same as: Colace) (Do Not Crush) Zinc Sulfate 220 mg, 1 cap, No Longer [place] Route: PO, Drug Active 2018 Medical form: CAP, Center Daily, Dosing Weight 127.27, kg, Start date: 11/15/17 9:00:00 CDT, Duration: 30 day, Stop date: 12/14/17 9:00:00 CDTNotes: (Zinc sulfate capsule) - 220 mg Zinc sulfate=50 mg elemental zinc Same as Zinc Sulfate ascorbic acid 500 mg, 1 tab, No Longer [place] Route: PO, Drug Active 2017 Medical form: TAB, BID, Center Dosing Weight 127.27, kg, Start date: 11/15/17 9:00:00 CDT, Duration: 30 day, Stop date: 12/14/17 17:00:00 CDTNotes: (Same as: Vitamin C) multivitamin 1 tab, Route: No Longer [place] PO, Drug Form: Active 2018 Medical TAB, Dosing Center Weight 127.27, kg, Daily, Start date: 11/15/17 9:00:00 CDT, Duration: 30 day, Stop date: 12/14/17 9:00:00 CDTNotes: (Same as:Thera) WASTE: F/P - Black; E - Municipal Trash Bin Take with food. Naproxen 500 mg, 1 tab, Inactive [place] Route: PO, Drug 2017 Medical form: TAB, Center [id number], Dosing Weight 127.27, kg, Start date: 11/15/17 2:00:00 CDT, Duration: 30 day, Stop date: 12/14/17 14:00:00 CDTNotes: (Same as: Naprosyn) Take with food. Zosyn 3.375 gm, No Longer [facility] Route: IVPB, Active 2018 Medical Drug form: [...] Active 2017 Medical Drug form: INJ, Center [id number], Dosing Weight 127.27, kg, Consider for obese [...] Stop date: 12/15/17 1:45:00 CDTNotes: (Same as: [place] 325/5) Do not exceed 4gm/day of acetaminophen. [...] Bin Sodium Chloride 1,000 mL, 1000 Inactive [facility] 0.9% (Bolus) IV ml/hr, Infuse 2018 Medical [...] Extra Strength) Rocephin 1 gm, Route: Inactive 05/04[facility] IVP, Drug form: 2018 Medical PDR/INJ, ONCE, Center Dosing Weight 127.273, kg, Priority: STAT, Start date: 11/14/17 21:21:00 CDT, Stop date: 11/14/17 21:21:00 CDT, ABX Indication: Urinary Tract InfectionNotes: (Same As: Rocephin). MEDICATION WASTE Product Size: 1000 mg Product Wasted: _0__ mg Morphine 4 mg, Route: Inactive [facility] IVP, ONCE, 2018 Medical Dosing Weight Center 127.273, kg, Priority: STAT, Start date: 11/14/17 19:05:00 CDT, Stop date: 11/14/17 19:05:00 CDT Benadryl 25 mg, 0.5 mL, Inactive [facility] Route: IVP, 2017 Medical Drug form: INJ, Center ONCE, Dosing Weight 127.273, kg, Priority: STAT, Start date: 11/14/17 18:14:00 CDT, Stop date: 11/14/17 18:14:00 CDTNotes: (Same as: Benadryl) Benadryl 50 mg, 2 cap, Inactive 11/14[facility] Route: PO, Drug 2017 Medical form: CAP, Center ONCE, Dosing Weight 127.273, kg, Priority: STAT, Start date: 11/14/17 17:56:00 CDT, Stop date: 11/14/17 17:56:00 CDTNotes: (Same as: Benadryl) Morphine 4 mg, 1 mL, Inactive 11/14[facility] Route: IVP, 2017 Medical Drug form: Center [...] For Pain [place] Oxycodone FOUR TIMES Active [facility] St. Hcl/Acetaminoph DAILY 2016 [facility] [place] Meropenem Q8H Active [facility] 2013 [facility] [place] Collagenase DAILY Active [facility] 2013 [facility] [place] Ciprofloxacin Q12H Active [facility] St. 400mg Iv 2013 [facility] [place] Amikacin Sulf DAILY Active [facility] 2013 [facility] [place] Linezolid TWICE DAILY Inactive [facility] 2013 [facility] [place] Allergies, Adverse Reactions, Alerts Substance Category Reaction Severity Reaction Status Date Comments Source type Reported levofloxacin Hives Moderate Allergy to Active [facility] St[facility] Substance 8 [facility] [place] sulfamethoxa Hives Moderate Allergy to Active [facility] St[facility] zole Substance 8 [facility] [place] ketorolac Nausea/Vo Allergy to Active [facility] St. tromethamine [place] Substance 8 [facility] [place] vancomycin Hives Allergy to Active [facility] St[facility] Substance 8 [facility] [place] ondansetron Nausea/Vo Mild Propensity Active [facility] St[facility] [place] to adverse 8 [facility] [place] ciprofloxaci Nausea/Vo Propensity Active [facility] St[facility] n [place] to adverse 8 [facility] [place] doxycycline Nausea/Vo Propensity Active [facility] St[facility] [place] to adverse 8 [facility] [place] morphine Assertion Drug Active [facility] amoxicillin Assertion Drug Active [facility] Toradol [facility] Drug Active [facility] Minocin Assertion Drug Active [facility] Zofran Assertion Drug Active [facility] Levaquin Assertion Drug Active [facility] Bactrim Assertion Drug Active [facility] Immunizations Immunization Date Given Site Status Last Updated Comments Source Results Order Name Results Value Reference Date Interpretation Comments Source Range Brain-Outs Brain-Outsid EXAM: CT BRAIN WITHOUT CONTRAST -- OUTSIDE CONSULT 05/22 - [facility] justina e Consult - Medical Consult CT This report was dictated by a Manager Services/Fellow. I have personally reviewed the images as Center well as the Resident's interpretation and agree with the findings. 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 205 images. Imaging was performed at [facility] on 05/22/2018. IV contrast: None. FINDINGS: Overall [...] agrees with the preliminary report by the engineering vice president. CHEM PANEL B/C Ratio 17 6 - 25 11/[address] CHEM PANEL Globulin 4.3 g/dL 2.7 - 4.2 11/[address] CHEM PANEL A/G Ratio 0.7 0.7 - 1.6 11/[address] CHEM PANEL AGAP 14.4 meq/L 10.0 - 11/19 [facility] 20.0 [facility] CHEM PANEL eGFR 113 11/19 Result Comment: The eGFR is calculated using the CKD-EPI formula. In most young, healthy individuals the eGFR will be >90 mL/ min/1.73m2. The eGFR declines with age. An eGFR of 60-89 may be normal in [facility] mL/min/1.7 some populations, particularly the elderly, for whom the CKD-EPI formula has not been extensively validated. Use of the eGFR is not recommended in the following populations: [address] Individuals with unstable creatinine concentrations, including [...] Phos 76 unit/L 39 - 136 05/ [address] CHEM PANEL ALT 35 unit/L 0 - 65 / [address] CHEM PANEL Albumin Lvl 2.8 g/dL 3.5 - 5.0 / [address] CHEM PANEL Total 7.1 g/dL 6.4 - 8.4 11/19 [facility] Protein [address] CHEM PANEL Calcium Lvl 8.7 mg/dL 8.5 - 10.5 11/[address] CHEM PANEL AST 18 unit/L 0 - 37 / [address] CHEM PANEL Bili Total 0.3 mg/dL 0.2 - 1.3 11/[address] CHEM PANEL Potassium 4.4 meq/L 3.5 - 5.1 11/19 [facility] [address] [place] [address] CHEM PANEL Chloride Lvl 109 meq/L 95 - 109 11/[address] CHEM PANEL CO2 23 meq/L 24 - 32 / [address] CHEM PANEL Glucose Lvl 114 mg/dL 70 - 99 11/[address] CHEM PANEL Creatinine 1.01 mg/dL 0.50 - 11/19 [facility] 1.40 /[address] [place] [address] CHEM PANEL BUN 17 mg/dL 7 - 22 11/[address] CHEM PANEL Sodium Lvl 142 meq/L 135 - 145 11/[address] HEMATOLOGY Basophils 0.6 % 0.0 - 1.0 / [address] HEMATOLOGY Segs-Bands # 4.8 K/CMM 1.5 - 8.1 11/[address] HEMATOLOGY Monocytes # 0.7 K/CMM 0.0 - 0.8 / [address] HEMATOLOGY Lymphocytes 1.9 K/CMM 1.0 - 5.5 / [address] HEMATOLOGY Monocytes 9.4 % 2.0 - 12.0 / [address] HEMATOLOGY Eosinophils 0.2 K/CMM 0.0 - 0.5 11/19 [facility] # /2017 [facility] HEMATOLOGY Eosinophils 2.9 % 0.0 - 4.0 11/19 [facility] HEMATOLOGY Segs 62.2 % 45.0 - 11/19 [place] 75.0 [facility] HEMATOLOGY Lymphocytes 24.9 % 20.0 - 11/19 [place] 40.0 [facility] HEMATOLOGY MCH 27.5 pg 27.0 - 11/19 [place] 31.0 [facility] HEMATOLOGY MCV 85.3 fL 80.0 - 11/19 [place] 94.0 [facility] HEMATOLOGY Hct 43.9 % 42.0 - 11/19 [place] 54.0 [facility] HEMATOLOGY Hgb 14.2 g/dL 14.0 - 11/19 18.0 [facility] HEMATOLOGY WBC 7.7 K/CMM 3.7 - 10.4 11/19 [facility] HEMATOLOGY RBC 5.15 M/CMM 4.70 - 11/19 [place] 6.10 [facility] HEMATOLOGY MPV 8.4 fL 7.4 - 10.4 11/19 [facility] HEMATOLOGY MCHC 32.3 g/dL 32.0 - 11/19 [place] 36.0 [facility] HEMATOLOGY RDW 17.3 % 11.5 - 11/19 14.5 [facility] HEMATOLOGY Platelet 317 K/CMM 133 - 450 11/[address] CHEM PANEL Globulin 4.4 g/dL 2.7 - 4.2 11/18 2017 [facility] CHEM PANEL A/G Ratio 0.6 0.7 - 1.6 11/18 [facility] CHEM PANEL B/C Ratio 17 6 - 25 11/18 [facility] CHEM PANEL AGAP 11.3 meq/L 10.0 - 11/18 20.0 [facility] CHEM PANEL eGFR 134 11/18 Result Comment: The eGFR is calculated using the CKD-EPI formula. In most young, healthy individuals the eGFR will be >90 mL/ min/1.73m2. The eGFR declines with age. An eGFR of 60-89 may be normal in [facility] mL/min/1.7 some populations, particularly the elderly, for whom the CKD-EPI formula has not been extensively validated. Use of the eGFR is not recommended in the following populations: [address] Individuals with unstable creatinine concentrations, including [...] PANEL Creatinine 0.84 mg/dL 0.50 - 11/18 [facility] Lvl 1.40 [facility] CHEM PANEL Sodium Lvl 142 meq/L 135 - 145 11/[address] CHEM PANEL Glucose Lvl 99 mg/dL 70 - 99 11/[address] CHEM PANEL BUN 14 mg/dL 7 - 22 11/[address] CHEM PANEL Alk Phos 79 unit/L 39 - 136 11/[address] CHEM PANEL Bili Total 0.3 mg/dL 0.2 - 1.3 11/[address] CHEM PANEL AST 14 unit/L 0 - 37 11/[address] CHEM PANEL ALT 43 unit/L 0 - 65 11/[address] CHEM PANEL Total 7.1 g/dL 6.4 - 8.4 11/18 [facility] Protein [address] CHEM PANEL Albumin Lvl 2.7 g/dL 3.5 - 5.0 11/[address] CHEM PANEL Calcium Lvl 9.2 mg/dL 8.5 - 10.5 11/[address] CHEM PANEL CO2 21 meq/L 24 - 32 11/[address] CHEM PANEL Potassium 4.3 meq/L 3.5 - 5.1 11/18 [facility] Lvl [address] [place] [address] CHEM PANEL Chloride Lvl 114 meq/L 95 - 109 11/[address] HEMATOLOGY MCHC 32.5 g/dL 32.0 - 11/18 [facility] 36.0 [facility] HEMATOLOGY RDW 17.5 % 11.5 - 11/18 [facility] 14.5 [facility] HEMATOLOGY Platelet 400 K/CMM 133 - 450 11/[address] HEMATOLOGY MPV 8.5 fL 7.4 - 10.4 11/[address] [facility] HEMATOLOGY WBC 6.6 K/CMM 3.7 - 10.4 11/[address] [place] [address] HEMATOLOGY RBC 5.17 M/CMM 4.70 - 11/18 [facility] 6.10 [facility] HEMATOLOGY MCV 86.1 fL 80.0 - 11/18 [facility] 94.0 [facility] HEMATOLOGY Hct 44.5 % 42.0 - 11/18 [facility] 54.0 [facility] HEMATOLOGY MCH 28.0 pg 27.0 - 11/18 [facility] 31.0 [facility] HEMATOLOGY Hgb 14.5 g/dL 14.0 - 11/18 [facility] 18.0 [facility] HEMATOLOGY Lymphocytes 1.7 K/CMM 1.0 - 5.5 11/18 [facility] HEMATOLOGY Monocytes # 0.7 K/CMM 0.0 - 0.8 11/[address] HEMATOLOGY Eosinophils 0.2 K/CMM 0.0 - 0.5 11/18 [facility] HEMATOLOGY Lymphocytes 26.1 % 20.0 - 11/18 [facility] 40.0 [facility] HEMATOLOGY Segs 59.3 % 45.0 - 11/18 [facility] 75.0 [facility] HEMATOLOGY Basophils 0.8 % 0.0 - 1.0 11/[address] HEMATOLOGY Monocytes 10.5 % 2.0 - 12.0 11/[address] HEMATOLOGY Eosinophils 3.3 % 0.0 - 4.0 11/[address] HEMATOLOGY Segs-Bands # 3.9 K/CMM 1.5 - 8.1 11/[address] TOXICOLOGY Vanco Tr TND 15:30pm 11/[address] TOXICOLOGY Vanco Tr 9.1 ug/ml 11/[address] CHEM PANEL Glucose Lvl 74 mg/dL 70 - 99 11/[address] CHEM PANEL BUN 12 mg/dL 7 - 22 11/[address] CHEM PANEL Creatinine 0.75 mg/dL 0.50 - 11/17 [facility] Lvl 1.40 [facility] CHEM PANEL eGFR 140 11/17 Result Comment: The eGFR is calculated using the CKD-EPI formula. In most young, healthy individuals the eGFR will be >90 mL/ min/1.73m2. The eGFR declines with age. An eGFR of 60-89 may be normal in [facility] mL/min/1. some populations, particularly the elderly, for whom the CKD-EPI formula has not been extensively validated. Use of the eGFR is not recommended in the following populations: [address] Individuals with unstable creatinine concentrations, including [...] Lvl 2.9 g/dL 3.5 - 5.0 11/[address] CHEM PANEL Globulin 4.4 g/dL 2.7 - 4.2 11/[address] CHEM PANEL A/G Ratio 0.7 0.7 - 1.6 11/[address] CHEM PANEL Bili Total 0.4 mg/dL 0.2 - 1.3 11/[address] CHEM PANEL Alk Phos 71 unit/L 39 - 136 11/[address] CHEM PANEL AST 15 unit/L 0 - 37 11/[address] CHEM PANEL ALT 28 unit/L 0 - 65 11/[address] CHEM PANEL Potassium 4.4 meq/L 3.5 - 5.1 11/17 [facility] [address] [place] [address] CHEM PANEL Sodium Lvl 147 meq/L 135 - 145 11/[address] CHEM PANEL CO2 25 meq/L 24 - 32 11/[address] CHEM PANEL Chloride Lvl 114 meq/L 95 - 109 / [address] CHEM PANEL B/C Ratio 16 6 - 25 11/[address] CHEM PANEL Calcium Lvl 8.7 mg/dL 8.5 - 10.5 11/[address] CHEM PANEL AGAP 12.4 meq/L 10.0 - 05/ [facility] 20.0 [facility] CHEM PANEL Total 7.3 g/dL 6.4 - 8.4 11/17 [facility] [place] Protein [address] HEMATOLOGY Platelet 345 K/CMM 133 - 450 05 [facility] HEMATOLOGY MPV 8.7 fL 7.4 - 10.4 11/17 [facility] HEMATOLOGY WBC 6.9 K/CMM 3.7 - 10.4 11/17 [facility] HEMATOLOGY RBC 5.30 M/CMM 4.70 - 11/17 6.10 [facility] HEMATOLOGY MCHC 32.8 g/dL 32.0 - 11/17 36.0 [facility] HEMATOLOGY MCH 27.9 pg 27.0 - 11/17 31.0 [facility] HEMATOLOGY Hgb 14.8 g/dL 14.0 - 11/17 18.0 [facility] HEMATOLOGY MCV 85.0 fL 80.0 - 11/17 [facility] 94.0 [facility] HEMATOLOGY Hct 45.1 % 42.0 - 11/17 54.0 [facility] HEMATOLOGY RDW 17.5 % 11.5 - 11/17 14.5 [facility] HEMATOLOGY Eosinophils 0.2 K/CMM 0.0 - 0.5 11/17 [facility] # [facility] HEMATOLOGY Lymphocytes 2.0 K/CMM 1.0 - 5.5 11/17 [facility] HEMATOLOGY Monocytes # 0.7 K/CMM 0.0 - 0.8 05 [facility] HEMATOLOGY Eosinophils 2.4 % 0.0 - 4.0 11/17 [facility] HEMATOLOGY Basophils 0.6 % 0.0 - 1.0 11/[address] [place] [address] HEMATOLOGY Segs-Bands # 4.0 K/CMM 1.5 - 8.1 11/17 [facility] HEMATOLOGY Monocytes 10.4 % 2.0 - 12.0 11/17 [facility] HEMATOLOGY RBC Morph Normal 11/17 [facility] (11/17/17 2:07 AM) [place] HEMATOLOGY Segs 58.1 % 45.0 - 11/17 75.0 [facility] HEMATOLOGY Plt Morph Normal 11/17 [facility] (11/17/17 2:07 AM) [place] HEMATOLOGY Lymphocytes 28.5 % 20.0 - 11/17 [place] 40.0 [facility] HEMATOLOGY Basophils # 0.1 K/CMM 0.0 - 0.2 11/16 [facility] HEMATOLOGY Polychrom Moderate None Seen 11/16 [facility] [place] (11/16/17 11:07 AM) TOXICOLOGY Vanco Tr TND * 11/[address] TOXICOLOGY Vanco Tr 22.3 ug/ml 11/[address] CHEM PANEL Magnesium 2.3 mg/dL 1.8 - 2.4 11/15 [facility] CHEM PANEL Phosphorus 3.5 mg/dL 2.5 - 4.5 11/[address] HEMATOLOGY PT 14.0 s 12.0 - 11/15 [facility] 14. [facility] HEMATOLOGY PTT 37.6 s 22.9 - 11/15 [facility] 35. [facility] HEMATOLOGY INR 1.08 0.85 - 11/15 [facility] 1. [facility] IMMUNOLOGY C-REACTIVE 13.1 mg/L <=2.9 mg/L 11/15 [facility] PROTEIN [facility] IMMUNOLOGY Prealbumin 25.2 mg/dL 18.0 - 11/15 [facility] 45.0 [facility] CHEM PANEL Lactic Acid 0.9 mMol/L 0.5 - 2.2 11/15 [facility] HEMATOLOGY Sed Rate 5 mm/h 0 - 15 11/[address] IMMUNOLOGY C-REACTIVE 15.8 mg/L <=2.9 mg/L 11/15 [facility] PROTEIN [address] HEMATOLOGY PT 13.0 s 12.0 - 11/15 [facility] 14. [facility] HEMATOLOGY INR 0.98 0.85 - 11/15 [facility] 1. [facility] HEMATOLOGY PTT 33.2 s 22.9 - 11/15 [facility] 35. [facility] BLOOD BANK Antibody Negative 11/14 [facility] RESULTS Scrn [facility] (11/14/17 6:51 PM) [place] BLOOD BANK ABO/Rh AB POS 11/14 [facility] RESULTS [address] [place] [address] URINE AND UA 0.2 EU/dL 0.1 - 1.0 11/14 [facility] STOOL Urobilinogen /[address] [place] [place] [address] URINE AND UA Nitrite Negative Negative 11/14 [facility] STOOL [facility] (11/14/17 6:35 PM) [place] URINE AND UA Glucose Negative Negative 11/14 [facility] (11/14/17 6:35 PM) [place] URINE AND UA Ketones Negative Negative 11/14 [place] [address] Medical *NA* Center (11/14/17 6:35 PM) URINE AND UA Bili Negative Negative 11/14 [facility] [address] [place] [address] *NA* [place] (11/14/17 6:35 PM) URINE AND UA Blood Trace Negative 11/14 [facility] *ABN* [place] (11/14/17 6:35 PM) URINE AND UA Leuk Est Small Negative 11/14 [facility] *ABN* [place] (11/14/17 6:35 PM) URINE AND UA Spec Grav 1.020 <=1.030 11/[address] URINE AND UA pH 6.0 5.0 - 8.0 11/[address] URINE AND UA Color Yellow Yellow 11/14 [facility] [address] [place] [address] *NA* [place] (11/14/17 6:35 PM) URINE AND UA Protein Trace Negative 11/14 [facility] *ABN* [place] (11/14/17 6:35 PM) URINE AND UA Turbidity Slight Cloudy Clear 11/[address] (11/14/17 6:35 PM) [place] URINE AND UA Hyal Cast 0-2 0 - 2 11/[address] (11/14/17 6:35 PM) [place] URINE AND UA Bacteria Occasional None Seen 11/14 [facility] /HPF /HPF /2017 [facility] URINE AND UA RBC 11-20 /HPF 0 - 2 11/[address] URINE AND UA Sq Epi Occasional Few /LPF 11/14 [facility] /LPF /[address] [place] [address] URINE AND UA WBC 51-100 None Seen 11/14 [facility] /HPF /HPF /[address] [place] [address] HEMATOLOGY Basophils # 0.1 K/CMM 0.0 - 0.2 11/[address] HEMATOLOGY Polychrom Slight 11/[address] HEMATOLOGY Plt Morph Normal 11/[address] (11/14/17 6:20 PM) [place] Brain Brain shunt EXAM: SKULL 2 VIEWS 11/14 - [facility] shunt series DX /2017 - Medical series DX EXAM: CHEST 2 VIEWS This report was dictated by a Manager Services/Fellow. I have personally reviewed the images as Center well as the Resident's interpretation and agree with the findings. EXAM: ABDOMEN 2 VIEWS Read by: Josemanuel Hoyt MD Resident: Josemanuel Hyot MD Dictated Date/time: 11/14/17 20:33 Electronically Signed [...] EXAM: CT BRAIN WITHOUT CONTRAST 11/14 - [facility] contrast contrast CT /2017 - Medical CT This report was dictated by a Manager Services/Fellow. I have personally reviewed the images as Center well as the Resident's interpretation and agree with the findings. DATE: 11/14/2017 627 PM CDT Read by: Josemanuel Hoyt MD Resident: Josemanuel Hoyt MD Dictated Date/time: 11/14/17 18:45 Electronically Signed by: Jovan Talley MD 11/14/17 21:12 FINAL REPORT INDICATION: 32-year-old male patient with history of evp general counsel shunt malfunction COMPARISON: CT of the brain 07/30/2014, 03/27/2013. TECHNIQUE: Axial CT images of the brain were obtained. Sagittal and coronal reformats. IV contrast: None. FINDINGS: An orphaned right occipital approach CITY DISPATCH SUPERVISOR shunt is present. Also present is a right frontal approach CITY DISPATCH SUPERVISOR shunt with tip in the left lateral [...] EXAM: XR CHEST 1 VIEW 11/14 - [facility] 1view DX DX /2017 - Medical This report was dictated by a Manager Services/Fellow. I have personally reviewed the images as [...] Level 142 mEq/L 135 - 145 10/[address] [facility] [address] Studies /2017 [facility] Potassium 4.4 mEq/L 3.6 - 5.0 10/07 [facility] [address] Studies Level /2017 [facility] Magnesium 1.8 mg/dL 1.8 - 2.5 10/07 [facility] [address] Studies Level /2017 [facility] [place] Glucose 126 mg/dL 65 - 120 10/[address] [facility] [address] Studies Level /2017 [facility] [place] [facility] Estimat null 90 10/07 [facility] [address] Studies Glomerular /2017 [facility] Filtration [place] Rate Laboratory Creatinine 0.83 mg/dL 0.61 - 10/07 [facility] [address] Studies 1.24 [facility] Chloride 108 mEq/L 101 - 111 10/07 [facility]. Studies Level /2017 [facility] Carbon 27 mEq/L 21 - 31 10/07 [facility]. Studies Dioxide /2017 [facility] Level [place] [facility] Calcium 9.1 mg/dL 8.5 - 10.5 10/07 [facility]. Studies Level /2017 [facility] [place] Blood Urea 15 mg/dL 6 - 20 10/07 [facility]. Studies Nitrogen /2017 [facility] White Blood 7.0 K/uL 4.3 - 10.9 10/07 [facility]. Studies Count /2017 [facility] Red Cell 17.4 % 12.1 - 10/07 [facility]. Studies Distribution 15.2 [facility] Width [place] [facility] Red Blood 5.14 M/uL 4.33 - 10/07 [facility]. Studies Count 5.43 [facility] Platelet 270 K/uL 152 - 406 10/07 [facility]. Studies Count /2017 [facility] Neutrophils 62.3 % 41.7 - 10/07 [facility]. Studies % 73.7 /2017 [facility] [place] Monocytes % 9.3 % 3.3 - 12.3 10/07 [facility]. Studies /2017 [facility] [place] [facility] Mean 8.3 fL 7.6 - 11.3 10/07 [facility]. Studies Platelet /2017 [facility] Volume [place] [facility] Mean 82.8 fL 80 - 100 10/07 [facility]. Studies Corpuscular /2017 [facility] Volume [place] [facility] Mean 33.4 g/dL 32.0 - 10/07 [facility]. Studies Corpuscular 36.0 [facility] Hemoglobin [place] Concent [facility] Mean 27.6 pg 27.0 - 10/07 [facility]. Studies Corpuscular 35.0 /2017 [facility] Hemoglobin [place] [facility] Lymphocytes 24.6 % 15.3 - 10/07 [facility]. Studies % 44.8 /2017 [facility] [place] [facility] Hemoglobin 14.2 g/dL 13.6 - 10/07 [facility] [address] Studies 17.9 /2017 [facility] Hematocrit 42.6 % 39.6 - 10/[address] [facility] [address] Studies 49.0 [facility] Eosinophils 3.3 % 0 - 4.4 10/07 [facility] [address] Studies % /2017 [facility] [place] Basophils % 0.5 % 0 - 1.3 10/07 [facility] [address] Studies /2017 [facility] [place] Absolute 4.4 K/uL 1.8 - 8.0 10/07 [facility] [address] Studies Neutrophil /2017 [facility] [place] [facility] Absolute 0.7 K/uL 0.1 - 1.3 10/07 [facility] [address] Studies Monocytes /2017 [facility] (CBC) [place] [facility] Absolute 1.7 K/uL 0.7 - 4.9 10/07 [facility] [address] Studies Lymphocytes /2017 [facility] (CBC) [place] [facility] Absolute 0.2 K/uL 0 - 0.5 10/07 [facility] [address] Studies Eosinophils [facility] (CBC) [place] [facility] Absolute 0.0 K/uL 0 - 0.5 10/07 [facility] [address] Studies Basophils [facility] (CBC) [place] Microbiolo Providencia Providenci 10/06 [facility] gy Studies Rettgeri a Rettgeri /2017 [facility] Urine WBC null 10/04 [facility] [address] Studies /2017 [facility] [place] [facility] Urine null 10/04 [facility] [address] Studies Squamous /2017 [facility] Epithelial [place] Cells Laboratory Urine RBC Urine RBC 10/04 [facility] [address] Studies /2017 [facility] [place] [facility] Urine Urine 10/04 [facility] [address] Studies Culture Culture /2017 [facility] Reflexed Reflexed [place] [facility] Urine null 10/04 [facility] [address] Studies Bacteria /2017 [facility] [place] [facility] Urine pH 6.5 10/04 [facility] [address] Studies /2018 [facility] Urine 2.0 mg/dL 10/04 [facility] [address] Studies Urobilinogen /2017 [facility] [place] [facility] Urine Total Urine 10/04 [facility] [address] Studies Protein Total /2017 [facility] Protein [place] [facility] Urine 1.020 10/04 [facility] [address] Studies Specific /2017 [facility] [place] [facility] Urine Urine 10/04 [facility] [address] Studies Nitrite Nitrite /2017 [facility] [place] [facility] Urine Urine 10/04 [facility] [address] Studies Leukocyte Leukocyte /2017 [facility] Esterase Esterase [place] [facility] Urine Urine 10/[address] [facility] [address] Studies Ketones Ketones [facility] [place] [facility] Urine Urine 10/04 [facility] Studies Glucose Glucose [facility] [place] [facility] Urine Color Urine 10/04 [facility]. Studies Color /2017 [facility] [place] [facility] Urine Blood Urine 10/04 [facility]. Studies Blood [facility] [place] [facility] Urine Urine 10/04 [facility]. Studies Bilirubin Bilirubin [facility] [place] [facility] Urine Urine 10/04 [facility]. Studies Appearance Appearance /2017 [facility] [place] [facility] Prothrombin 13.0 9.5 - 12.5 10/03 [facility] Studies Time SECONDS [facility] [place] [facility] INR 1.10 10/03 [facility]. Studies Internationa /2017 [facility] l Normalized [place] Ratio Laboratory Total 1.9 mg/dL 0.3 - 1.2 10/03 [facility] Studies Bilirubin /2017 [facility] [place] [facility] Serum Total 7.8 g/dL 6.0 - 8.3 10/03 [facility]. Studies Protein /2017 [facility] [place] [facility] Globulin 4.2 g/dL 2.3 - 3.5 10/03 [facility]. Studies /2017 [facility] [place] [facility] Direct 0.6 mg/dL 0 - 0.2 10/03 [facility] Studies Bilirubin /2017 [facility] [place] [facility] Aspartate 88 IU/L 10 - 42 10/03 [facility]. Studies Amino Transf /2017 [facility] (AST/SGOT) [place] [facility] Alkaline 192 IU/L 42 - 121 10/03 [facility]. Studies Phosphatase /2017 [facility] [place] [facility] Albumin/Glob 0.9 1.1 - 1.8 10/03 [facility] Studies ulin Ratio /2017 [facility] [place] [facility] Albumin 3.6 g/dL 3.2 - 5.5 10/03 [facility]. Studies /2017 [facility] [place] [facility] Alanine 135 IU/L 10 - 60 10/03 [facility]. Studies Aminotransfe /2017 [facility] rase [place] (ALT/SGPT) Laboratory Procalcitoni 0.44 ng/mL 10/03 [facility]. Studies n [facility] [place] [facility] B-Type 20 pg/ml 10/03 [facility]. Studies Natriuretic /2017 [facility] Peptide [place] [facility] Lipase 22 U/L 22 - 51 10/[address] [facility] [place] [facility] Rapid null 10/03 [facility] [address] Studies Troponin I [facility] [place] [facility] Lactic Acid 8.6 mg/dL 4.5 - 19.8 10/[address] [facility] Level [facility] [place] Microbiolo Morganella Morganella 09/[address] [facility] Studies Morganii Morganii [facility] [place] [facility] Proteus Proteus 09/07 [facility] [address] gy Studies Mirabilis Mirabilis [facility] [place] [facility] Activated 32.2 24.3 - 09/01 [facility] Studies Partial SECONDS 36.9 [facility] Thromboplast [place] Time Vital Signs Vital Sign Value Date Comments Source Temperature Oral (F) 97.2 F 11/19/[address] [facility] Systolic (mm Hg) 127 11/19/[address] [facility] Diastolic (mm Hg) 85 11/19/[address] [facility] Heart Rate 81 11/19/[address] [facility] Respitory Rate 18 11/19/[address] [facility] Heart Rate 90 11/19/[address] [facility] Systolic (mm Hg) 106 11/19/[address] [facility] Diastolic (mm Hg) 71 11/19/[address] [facility] Respitory Rate 18 11/19/[address] [facility] Temperature Oral (F) 98.1 F 11/19/[address] [facility] Respitory Rate 18 11/19/[address] [facility] Systolic (mm Hg) 168 11/19/[address] [facility] Diastolic (mm Hg) 107 11/19/[address] [facility] Heart Rate 87 11/19/[address] [facility] Temperature Oral (F) 98.1 F 11/19/[address] [facility] Weight 127.027 11/18/[address] [facility] Weight 127.027 11/17/[address] [facility] Weight 127.027 11/15/[address] [facility] BMI Calculated 48.16 11/15/[address] [facility] Height 162.56 cm 11/15/[address] [facility] Height 149.86 cm 11/14/[address] [facility] BMI Calculated 56.67 11/14/[address] [facility] Heart Rate 85 10/07/[address] [facility] [place] Systolic (mm Hg) 145 10/07/[address] [facility] [place] Diastolic (mm Hg) 66 10/07/[address] [facility] [place] Temperature Oral (F) 97.7 F 10/07/[address] [facility] [place] Respitory Rate 16 10/07/[address] [facility] [place] Height 59 10[facility]06/[address] [facility] [place] Weight 280 10/06/[address] [facility] [place] Encounters Location Location Encounter Encounter Reason Attending ADM DC Status Source Details Type Number For Provider Date Date Visit [facility] [id number] 07/11 07/[address] [facility]2016 [facility] [place] [facility] [id number] 08/08 08/[facility] [place] [facility] [facility] [id number] 09/01 09/[address] [facility] Emergency /2017 [facility] [place] [facility] [facility] [id number] 09/10 09/[facility]2017 [facility] [place] [facility] [facility] [id number] 09[facility] [facility]2017 [facility] [place] [facility] [facility] [id number] 10/04 10/[facility]2017 [facility] [place] [facility] Inpatient [id number] [place] 11/14 11/[address] [facility] /2017 [facility] Procedures Procedure Code Date Perfomer Comments Source Chest Single View [id number] [facility] [place] Gram Stain [id number] [facility] [place] Culture & Sensitivity [id number] [facility] [place] - [facility] [place] Anaerobic Blood [id number] [facility] [place] - Culture 8 [place] Aerobic Blood Culture [id number] [facility] [place] - [facility] [place] Chest Single View [id number] [facility] - 8 [place] Gram [facility]ain [id number] [facility] [place] Culture & Sensitivity [id number] [facility] - 8 [place] Chest Single View [id number] [facility] [place] Cholecystectomy [id number] [facility] Shunt of cerebral [id number] [facility] ventricle to [facility] extracranial site
--- OUTSIDE RECORDS SUMMARY | 2018-08-01 18:18 | XMS REPORT ---
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
--- OUTSIDE RECORDS SUMMARY | 2018-08-01 18:18 | XMS REPORT ---
[...] tension-type headache, not G44.219 Active intractable Assessment PRUNE WASHER (ventriculoperitoneal) shunt Z98.2 Active status Assessment Ulcer [...] vomiting not specified, unspecified vomiting type Problem PRUNE WASHER (ventriculoperitoneal) shunt Z98.2 Active status Medications Medication Code Code Instructions Start End Status Dosage System Date Date Tylenol with [facility] 26040798138 300-60 MG Active 1 tablet as Codeine #4 Orally every 6 needed hrs Macrobid [facility] 50143550294 100 MG Orally Active 1 capsule every 12 hrs with food Pantoprazole ND 81467145099 40 MG Orally Active 1 tablet Sodium Once a day Collagenase [facility] [address]-67 250 UNIT/GM Active 1 application Externally to affected Once a day area Results No Known Results Summary Purpose eClinicalWorks Submission
--- OUTSIDE RECORDS SUMMARY | 2018-08-01 18:18 | XMS REPORT ---
[...] hydrocephalus Problem Bipolar depression F31.30 Active Assessment COMMUNITY ARTIST (ventriculoperitoneal) shunt Z98.2 Active status Problem Depression [...] spina bifida with Q05.2 Active hydrocephalus Problem COMMUNITY ARTIST (ventriculoperitoneal) shunt Z98.2 Active status Problem Nicotine dependence F17.200 Active Medications Medication Code Code Instructions Start End Status Dosage System Date Date Collagenase [facility] [address]-37 250 UNIT/GM Active 1 application Externally to affected Once a day area Macrobid [facility] 55107215850 100 MG Orally Active 1 capsule every 12 hrs with food Tylenol with [facility] 94234743961 300-60 MG Active 1 tablet as Codeine #4 Orally every 6 needed hrs Citalopram [facility] 40917214100 10 MG Orally January Active 1 tablet Hydrobromide Once a day 2017 Pantoprazole [facility] 10602891390 40 MG Orally Active 1 tablet Sodium Once a day Seroquel [facility] 33518989544 25 MG Orally January Active 1 tablet Once a day at 16, bedtime 2017 Results No Known Results Summary Purpose eClinicalWorks Submission
--- OUTSIDE RECORDS SUMMARY | 2018-08-01 18:18 | XMS REPORT ---
:1985 Author Organization [facility] Address [facility] [address] [address] Lee [address] [place] [id number] Care Team Providers Name Role Phone CHADWICKJAQUELIN Unavailable Unavailable Problems This patient has no known problems. Allergies, Adverse Reactions, Alerts This patient has no known allergies or adverse reactions. Medications This patient has no known medications. Results Test Description Test Time Test Comments Text Results Atomic Results Result Comments BLOOD CULTURE 2016-12-28 16:22:00 Test Item Value Reference Range Comments CULTURE (BEAKER) (test fmsh=6518) No growth in 5 days BLOOD [id number] 16:22:00 Test Item Value Reference Range Comments CULTURE (BEAKER) (test hlvq=6592) No growth in 5 days (MANUAL DIFFERENTIAL)2016-12-25 22:29:00 Test Item Value Reference Range Comments TOTAL COUNTED (BEAKER) (test awsf=7399) WBC MORPHOLOGY (BEAKER) (test naos=965) Normal PLT MORPHOLOGY (BEAKER) (test zggi=348) Normal RBC MORPHOLOGY (BEAKER) (test ibjs=722) Normal CBC W/PLT COUNT & AUTO [id number] 22:28:00 Test Item Value Reference Range Comments WHITE BLOOD CELL COUNT (BEAKER) (test dbfy=749) 7.3 K/ L 4.0-10.0 RED BLOOD CELL COUNT (BEAKER) (test nico=851) 5.09 M/ L 4.20-5.80 HEMOGLOBIN (BEAKER) (test wvwd=638) 13.0 GM/DL 13.0-16.8 HEMATOCRIT (BEAKER) (test enjm=958) 42.3 % 40.0-50.0 MEAN CORPUSCULAR VOLUME (BEAKER) (test cche=693) 83.0 fL 82.0-98.0 MEAN CORPUSCULAR HEMOGLOBIN (BEAKER) (test 25.6 pg 27.0-33.0 vwih=549) MEAN CORPUSCULAR HEMOGLOBIN CONC (BEAKER) (test 30.8 GM/DL 32.0-36.0 awdv=700) RED CELL DISTRIBUTION WIDTH (BEAKER) (test 18.0 % 10.3-14.2 hvxu=613) PLATELET COUNT (BEAKER) (test jedz=376) 331 K/CU MM 150-430 MEAN PLATELET VOLUME (BEAKER) (test dpyl=636) 8.5 fL 6.5-10.5 NUCLEATED RED BLOOD CELLS (BEAKER) (test 0 /100 WBC 0-0 dsle=192) NEUTROPHILS RELATIVE PERCENT (BEAKER) (test 65 % bsxr=497) LYMPHOCYTES RELATIVE PERCENT (BEAKER) (test 23 % kdlp=962) MONOCYTES RELATIVE PERCENT (BEAKER) (test 8 % swvd=252) EOSINOPHILS RELATIVE PERCENT (BEAKER) (test 3 % mosw=338) BASOPHILS RELATIVE PERCENT (BEAKER) (test 1 % gyik=742) NEUTROPHILS ABSOLUTE COUNT (BEAKER) (test 4.75 K/ L 1.80-8.00 unvy=229) LYMPHOCYTES ABSOLUTE COUNT (BEAKER) (test 1.68 K/ L 1.48-4.50 ewus=691) MONOCYTES ABSOLUTE COUNT (BEAKER) (test 0.55 K/ L 0.00-1.30 vkvy=517) EOSINOPHILS ABSOLUTE COUNT (BEAKER) (test 0.24 K/ L 0.00-0.50 kqwu=262) BASOPHILS ABSOLUTE COUNT (BEAKER) (test 0.05 K/ L 0.00-0.20 njbe=182) 0.000.520.000.000.000.00BASI METABOLIC [id number] 11:11:00 Test Item Value Reference Range Comments SODIUM (BEAKER) (test 138 meq/L 136-145 uafq=087) POTASSIUM (BEAKER) (test 4.0 meq/L 3.5-5.1 dupz=878) CHLORIDE (BEAKER) (test 108 meq/L 98-107 ljnp=461) CO2 (BEAKER) (test 23 meq/L 22-29 nknv=460) BLOOD UREA NITROGEN 11 mg/dL 7-21 (BEAKER) (test vntg=907) CREATININE (BEAKER) (test 0.74 mg/dL 0.57-1.25 ywtd=655) GLUCOSE RANDOM (BEAKER) 124 mg/dL 70-105 (test hszw=292) CALCIUM (BEAKER) (test 8.9 mg/dL 8.4-10.2 vxrv=741) EGFR (BEAKER) (test 150 mL/min/1.73 sq m ESTIMATED GFR IS NOT mjvi=1869) ACCURATE CREATININE CLEARANCE IN PREDICTING GLOMERULAR FILTRATION RATE. ESTIMATED GFR IS NOT APPLICABLE FOR DIALYSIS PATIENTS. URINE [id number] 09:56:00 Test Item Value Reference Range Comments CULTURE (BEAKER) (test jzdi=1817) <10,000 col/mL skin marilee COMPREHENSIVE METABOLIC [id number] 08:49:00 Test Item Value Reference Range Comments TOTAL PROTEIN (BEAKER) 7.3 gm/dL 6.0-8.3 (test kyyd=761) ALBUMIN (BEAKER) (test 3.3 g/dL 3.5-5.0 sqqf=1199) ALKALINE PHOSPHATASE 89 U/L 40-150 (BEAKER) (test fbck=371) BILIRUBIN TOTAL (BEAKER) 1.4 mg/dL 0.2-1.2 (test jtdv=274) SODIUM (BEAKER) (test 137 meq/L 136-145 snht=593) POTASSIUM (BEAKER) (test 3.7 meq/L 3.5-5.1 atgy=117) CHLORIDE (BEAKER) (test 108 meq/L 98-107 qxkf=082) CO2 (BEAKER) (test 17 meq/L 22-29 gtvx=323) BLOOD UREA NITROGEN 12 mg/dL 7-21 (BEAKER) (test apyo=892) CREATININE (BEAKER) (test 0.78 mg/dL 0.57-1.25 guox=728) GLUCOSE RANDOM (BEAKER) 119 mg/dL 70-105 (test irky=421) CALCIUM (BEAKER) (test 8.6 mg/dL 8.4-10.2 scut=418) AST (SGOT) (BEAKER) (test 13 U/L 5-34 csiv=363) ALT (SGPT) (BEAKER) (test 28 U/L 6-55 usjn=575) EGFR (BEAKER) (test 141 mL/min/1.73 sq ESTIMATED GFR IS NOT jhyb=5419) m ACCURATE CREATININE CLEARANCE IN PREDICTING GLOMERULAR FILTRATION RATE. ESTIMATED GFR IS NOT APPLICABLE FOR DIALYSIS PATIENTS. CBC W/PLT COUNT & AUTO [id number] 08:46:00 Test Item Value Reference Range Comments WHITE BLOOD CELL COUNT (BEAKER) (test zsag=904) 9.4 K/ L 4.0-10.0 RED BLOOD CELL COUNT (BEAKER) (test jdvq=176) 4.79 M/ L 4.20-5.80 HEMOGLOBIN (BEAKER) (test kqgp=805) 12.8 GM/DL 13.0-16.8 HEMATOCRIT (BEAKER) (test dook=017) 40.0 % 40.0-50.0 MEAN CORPUSCULAR VOLUME (BEAKER) (test jlac=155) 83.4 fL 82.0-98.0 MEAN CORPUSCULAR HEMOGLOBIN (BEAKER) (test 26.7 pg 27.0-33.0 adka=508) MEAN CORPUSCULAR HEMOGLOBIN CONC (BEAKER) (test 32.0 GM/DL 32.0-36.0 xcxa=780) RED CELL DISTRIBUTION WIDTH (BEAKER) (test 18.2 % 10.3-14.2 wegi=116) PLATELET COUNT (BEAKER) (test ihfc=541) 313 K/CU MM 150-430 MEAN PLATELET VOLUME (BEAKER) (test ozzb=986) 8.6 fL 6.5-10.5 NUCLEATED RED BLOOD CELLS (BEAKER) (test 0 /100 WBC 0-0 tlcg=208) NEUTROPHILS RELATIVE PERCENT (BEAKER) (test 70 % hnlx=238) LYMPHOCYTES RELATIVE PERCENT (BEAKER) (test 16 % xseo=268) MONOCYTES RELATIVE PERCENT (BEAKER) (test 12 % uvgo=077) EOSINOPHILS RELATIVE PERCENT (BEAKER) (test 1 % svbm=532) BASOPHILS RELATIVE PERCENT (BEAKER) (test 1 % ofid=611) NEUTROPHILS ABSOLUTE COUNT (BEAKER) (test 6.54 K/ L 1.80-8.00 ixra=181) LYMPHOCYTES ABSOLUTE COUNT (BEAKER) (test 1.50 K/ L 1.48-4.50 eqot=976) MONOCYTES ABSOLUTE COUNT (BEAKER) (test 1.13 K/ L 0.00-1.30 czcn=846) EOSINOPHILS ABSOLUTE COUNT (BEAKER) (test 0.13 K/ L 0.00-0.50 gwnw=131) BASOPHILS ABSOLUTE COUNT (BEAKER) (test 0.06 K/ L 0.00-0.20 ypkq=550) 0.00URINALYSIS W/ [id number] 20:36:00 Test Item Value Reference Range Comments COLOR (BEAKER) (test vjuk=181) Yellow CLARITY (BEAKER) (test yred=811) Hazy SPECIFIC GRAVITY UA (BEAKER) (test vaft=704) 1.012 1.001-1.035 PH UA (BEAKER) (test dgpn=588) 5.5 5.0-8.0 PROTEIN UA (BEAKER) (test nrvw=394) 100 mg/dL Negative GLUCOSE UA (BEAKER) (test vlbm=847) Negative Negative KETONES UA (BEAKER) (test zvbq=525) Negative Negative BILIRUBIN UA (BEAKER) (test zvlh=489) Negative Negative BLOOD UA (BEAKER) (test adzb=073) Moderate Negative NITRITE UA (BEAKER) (test yelm=203) Negative Negative LEUKOCYTE ESTERASE UA (BEAKER) (test uewn=967) Large Negative UROBILINOGEN UA (BEAKER) (test oflh=820) 3.0 mg/dL 0.2-1.0 RBC UA (BEAKER) (test cuqo=036) 19 /HPF WBC UA (BEAKER) (test jysp=872) 182 /HPF SOURCE(BEAKER) (test zjxz=1260) BASIC METABOLIC [id number] 17:00:00 Test Item Value Reference Range Comments SODIUM (BEAKER) (test 140 meq/L 136-145 coow=019) POTASSIUM (BEAKER) (test 3.7 meq/L 3.5-5.1 mxgf=865) CHLORIDE (BEAKER) (test 112 meq/L 98-107 ksmd=225) CO2 (BEAKER) (test 17 meq/L 22-29 nrrv=735) BLOOD UREA NITROGEN 23 mg/dL 7-21 (BEAKER) (test oixx=648) CREATININE (BEAKER) (test 1.00 mg/dL 0.57-1.25 oakn=073) GLUCOSE RANDOM (BEAKER) 102 mg/dL 70-105 (test qfpl=971) CALCIUM (BEAKER) (test 8.7 mg/dL 8.4-10.2 fplf=025) EGFR (BEAKER) (test 106 mL/min/1.73 sq m ESTIMATED GFR IS NOT ixuu=8969) ACCURATE CREATININE CLEARANCE IN PREDICTING GLOMERULAR FILTRATION RATE. ESTIMATED GFR IS NOT APPLICABLE FOR DIALYSIS PATIENTS. Specimen slightly ictericCBC W/PLT COUNT & AUTO [id number] 12:18 :00 Test Item Value Reference Range Comments WHITE BLOOD CELL COUNT (BEAKER) (test czyj=289) 16.4 K/ L 4.0-10.0 RED BLOOD CELL COUNT (BEAKER) (test scrd=232) 5.22 M/ L 4.20-5.80 HEMOGLOBIN (BEAKER) (test rbbn=085) 14.4 GM/DL 13.0-16.8 HEMATOCRIT (BEAKER) (test hryd=130) 42.9 % 40.0-50.0 MEAN CORPUSCULAR VOLUME (BEAKER) (test pabj=980) 82.2 fL 82.0-98.0 MEAN CORPUSCULAR HEMOGLOBIN (BEAKER) (test 27.5 pg 27.0-33.0 gsvv=120) MEAN CORPUSCULAR HEMOGLOBIN CONC (BEAKER) (test 33.5 GM/DL 32.0-36.0 zalb=819) RED CELL DISTRIBUTION WIDTH (BEAKER) (test 16.2 % 10.3-14.2 mldk=532) PLATELET COUNT (BEAKER) (test bbre=799) 329 K/CU MM 150-430 MEAN PLATELET VOLUME (BEAKER) (test eyjq=062) 8.2 fL 6.5-10.5 NUCLEATED RED BLOOD CELLS (BEAKER) (test 0 /100 WBC 0-0 qdgk=497) NEUTROPHILS RELATIVE PERCENT (BEAKER) (test 83 % pnxn=554) LYMPHOCYTES RELATIVE PERCENT (BEAKER) (test 7 % xdze=673) MONOCYTES RELATIVE PERCENT (BEAKER) (test 9 % agte=905) EOSINOPHILS RELATIVE PERCENT (BEAKER) (test 0 % ggcm=815) BASOPHILS RELATIVE PERCENT (BEAKER) (test 0 % cnqf=237) NEUTROPHILS ABSOLUTE COUNT (BEAKER) (test 1.62 K/ L 1.80-8.00 mbiu=339) LYMPHOCYTES ABSOLUTE COUNT (BEAKER) (test 1.15 K/ L 1.48-4.50 mzmu=628) MONOCYTES ABSOLUTE COUNT (BEAKER) (test 1.56 K/ L 0.00-1.30 xoav=449) EOSINOPHILS ABSOLUTE COUNT (BEAKER) (test 0.01 K/ L 0.00-0.50 qzbd=376) BASOPHILS ABSOLUTE COUNT (BEAKER) (test 0.02 K/ L 0.00-0.20 bqwu=372) (MANUAL DIFFERENTIAL)2016-12-23 12:18:00 Test Item Value Reference Range Comments TOTAL COUNTED (BEAKER) (test zeqr=1470) WBC MORPHOLOGY (BEAKER) (test kfbn=767) Normal PLT MORPHOLOGY (BEAKER) (test lofa=317) Normal RBC MORPHOLOGY (BEAKER) (test dwbi=462) Normal
--- OUTSIDE RECORDS SUMMARY | 2018-08-01 18:18 | XMS REPORT ---
:1985 Author Organization [facility] Care Team Providers Name Role Phone Gamble, [...] R51 Active unspecified headache type Problem COKE BURNER (ventriculoperitoneal) shunt Z98.2 Active status Medications No Known Medications Results No Known Results Summary Purpose [facility] Submission
--- OUTSIDE RECORDS SUMMARY | 2018-08-01 18:18 | XMS REPORT ---
[...] ulcer stage Problem Paraplegia G82.20 Active Assessment NURSES EDUCATOR (ventriculoperitoneal) shunt Z98.2 Active status Problem Nausea [...] headache, R51 Active unspecified headache type Problem NURSES EDUCATOR (ventriculoperitoneal) shunt Z98.2 Active status Problem Episodic tension-type headache, not G44.219 Active intractable Problem Lumbar spina bifida with Q05.2 Active hydrocephalus Problem Foot ulcer L97.509 Active Problem Nicotine dependence F17.200 Active Problem Dependence on wheelchair Z99.3 Active Medications Medication Code Code Instructions Start End Status Dosage System Date Date Macrobid [facility] 79773803131 100 MG Orally Active 1 capsule every 12 hrs with food Tylenol with [facility] 14260037532 300-60 MG Active 1 tablet as Codeine #4 Orally every 6 needed hrs Pantoprazole ND 20046167563 40 MG Orally Active 1 tablet Sodium Once a day Citalopram [facility] 51501483444 10 MG Orally Active 1 tablet Hydrobromide Once a day Collagenase [facility] [address]-09 250 UNIT/GM Active 1 application Externally to affected Once a day area Seroquel [facility] 52734617920 25 MG Orally Active 1 tablet Once a day at bedtime Results No Known Results Summary Purpose [employer] Submission
[2018-08-01] MEDS ORDERED: NA CHLORIDE 0.9% 1,000 ML ONE (20:00)
[2018-08-01] MEDS ORDERED: FENTANYL CITR 100 MCG/2 ML ONE (20:01)
[2018-08-01] MEDS ORDERED: ONDANSETRON 4 MG/2 ML VIAL ONE (20:01)
--- NOTE | 2018-08-01 21:08 | RAD REPORT ---
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 AP and lateral views of cervical spine a nd neck soft tissues obtained. AP projections of the chest abdomen and pelvis also obtained. There we re 8 images obtained in total. FINDINGS: Current and prior shunt tubing is in place. No abnormal bend or kink of the tubing. No bertram picious or unexpected finding. IMPRESSION: Negative shunt series for acute or significant finding.
--- NOTE | 2018-08-01 21:10 | RAD REPORT ---
EXAM DESCRIPTION: CT - Head Brain Wo Cont - 08/01/2018 8:51 pm CLINICAL HISTORY: Vomiting, frontal headache, shunt tube COMPARISON: CT head May 22 2018 TECHNIQUE: Axial 5 mm thick images of the head were obtained without IV contrast. All CT scans are performed using dose optimization technique as appropriate and may include automated exposure control or mA/KV adjustment according to patient size. FINDINGS: No intracranial hemorrhage, mass, edema or shift of mid-line structures. No acute infarcti on changes seen. No abnormal extra-axial fluid collections. Right parietal and right frontal shunt tu bes are in place with no change in positioning. No hydronephrosis or ventricular enlargement. Mastoid air cells and visualized portions of the paranasal sinuses are clear. No acute bony findings. IMPRESSION: Negative non-contrast CT head examination for acute finding. No CT evidence for shunt m alfunction.
[2018-08-01] MEDS ORDERED: PROMETHAZINE 25 MG/ML VIAL ONE (21:21)
[2018-08-01] MEDS ORDERED: HYDROMORPHONE HCL 0.5 MG/0.5 ML INJ ONE ×2 (21:27→21:29)
--- NOTE | 2018-08-01 22:01 | ER ---
Nurse's Notes [facility] Name: Roland Feldman Jr Age: 33 yrs Sex: Male : 1985 Arrival Date: 08/01/2018 Time: 18:16 Bed 24 Private MD: Diagnosis: Headache Presentation: 08/01 18:18 Presenting complaint: Patient states: vomiting, right frontal headache started this sv morning. Transition of care: patient was received from another setting of care (long-term care facility), [facility]. Onset of symptoms was August 01, 2018. Care prior to arrival: None. 18:18 Method Of Arrival: EMS: [facility] sv 18:18 Acuity: YUKI 4 sv 18:19 Note Percocet given at the [place]. sv 08/02 01:08 Risk Assessment: Do you want to hurt yourself or someone else? Patient reports no tl3 desire to harm self or others. Initial Sepsis Screen: Does the patient meet any 2 criteria? No. Patient's initial sepsis screen is negative. Does the patient have a suspected source of infection? No. Patient's initial sepsis screen is negative. Triage Assessment: 08/01 18:18 General: Appears in no apparent distress. comfortable, obese, Behavior is calm, sv cooperative, appropriate for age. Pain: Complains of pain in right side of forehead. Neuro: Level of Consciousness is awake, alert, obeys commands, Oriented to person, place, time, situation. Respiratory: Respiratory effort is even, unlabored, Respiratory pattern is regular, symmetrical. GI: Reports vomiting. Historical: - Allergies: 18:19 Amoxicillin; sv 18:19 Bactrim; sv 18:19 Ciprofloxacin; sv 18:19 CLAVULANIC ACID; sv 18:19 Doxycycline; sv 18:19 Levofloxacin; sv 18:19 Morphine; sv 18:19 Toradol; sv 18:19 TRIMETHOPRIM; sv 18:19 Vancomycin; sv 18:19 Zofran; sv - PMHx: 18:19 Asthma; Cerebral Palsy; cluster headaches; decubitus ulcers on feet; GERD; sv Hydrocephalus; Hypertension; spina bifida; - PSHx: 18:19 SHUNT REVISION 2002; AMPUTATION OF LOWER LIMB 2001; sv - Immunization history:: Adult Immunizations up to date. - Social history:: Smoking status: Patient uses tobacco products, smokes one-half pack cigarettes per day. - Ebola Screening: : No symptoms or risks identified at this time. Screenin:00 Abuse screen: Denies threats or abuse. Nutritional screening: No deficits noted. tl3 Tuberculosis screening: No symptoms or risk factors identified. Fall Risk Secondary diagnosis (15 points) impaired mobility. Assessment: 19:00 Reassessment: pt reports that he has been suffering with nausea and abdominal pain for tl3 the last several days. General: Appears uncomfortable, well groomed, well developed, well nourished, Behavior is calm, cooperative, appropriate for age. Pain: Complains of pain in forehead and face and right side of forehead. Neuro: Level of Consciousness is awake, alert, obeys commands, Oriented to person, place, time, situation, Appropriate for age. Cardiovascular: Patient's skin is warm and dry. Respiratory: Airway is patent Respiratory effort is even, unlabored, Respiratory pattern is regular, symmetrical. GI: Reports nausea. : No signs and/or symptoms were reported regarding the genitourinary system. EENT: No signs and/or symptoms were reported regarding the EENT system. Derm: No signs and/or symptoms reported regarding the dermatologic system. Musculoskeletal: No signs and/or symptoms reported regarding the musculoskeletal system. 20:30 Reassessment: No changes from previously documented assessment. Patient and/or family tl3 updated on plan of care and expected duration. Pain level reassessed. Patient is alert, oriented x 3, equal unlabored respirations, skin warm/dry/pink. pt resting quietly. 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 23:50 Reassessment: Patient appears in no apparent distress at this time. No changes from tl3 previously documented assessment. pt sleeping quietly, waiting on transportation back to facility. 08/02 01:05 Reassessment: [facility] here for pt. tl3 Vital Signs: 08/01 18:19 BP 123 / 92; Pulse 81; Resp 18; Temp 98.4; Pulse Ox 99% ; Weight 125.19 kg; sv 22:00 BP 115 / 77; Pulse 81; Resp 18; Pulse Ox 98% on R/A; mg2 22:45 BP 120 / 80; Pulse 92; Resp 16; Pulse Ox 100% on R/A; tl3 ED Course: 18:16 Patient arrived in ED. mr 18:18 Triage completed. sv 18:19 Arm band placed on. sv 19:00 Bed in low position. Call light in reach. Side rails up X 1. Pulse ox on. NIBP on. tl3 19:00 No provider procedures requiring assistance completed. tl3 19:12 Jan Vang MD is Attending Physician. gs 19:21 Lupe Rg, NAIF is Primary Nurse. tl3 19:57 Patient moved to radiology. ag1 20:00 Missed attempt(s): 24 gauge in right forearm. Bleeding controlled, band aid applied, jp3 catheter tip intact. 20:05 Inserted saline lock: 24 gauge in right forearm, using aseptic technique. Blood jp3 collected. 20:10 Warm blanket given. jp3 20:51 CT Head Brain wo Cont In Process Unspecified. EDMS 20:55 Shuntogram XRAY In Process Unspecified. EDMS 23:00 IV discontinued, intact, bleeding controlled, No redness/swelling at site. Pressure tl3 dressing applied. Administered Medications: 21:00 Drug: Phenergan 12.5 mg Route: IVP; Infused Over: 5 mins; Site: right forearm; tl3 23:10 Follow up: Response: No adverse reaction tl3 21:10 Not Given (wrong order): Zofran 4 mg IVP once; over 2 minutes gs 21:35 Not Given (Patient Refused): fentaNYL (PF) 50 mcg IVP once tl3 21:35 Drug: Dilaudid 0.5 mg Route: IVP; Infused Over: 2 mins; Site: right forearm; tl3 23:08 Follow up: Response: No adverse reaction tl3 21:59 Drug: NS 0.9% 1000 ml Route: IV; Rate: 1 bolus; Site: right forearm; mg2 23:08 Follow up: IV Status: Completed infusion; IV Intake: 1000ml tl3 Intake: 23:08 IV: 1000ml; Total: 1000ml. tl3 Outcome: 22:00 Discharge ordered by . gs 23:00 Discharged to senior living. tl3 23:00 Condition: stable 23:00 Discharge instructions given to patient. 08/02 01:10 Patient left the ED. tl3 Signatures: Dispatcher [employer] Hoa Hoffman RN RN bertram Garcia Lisbeth mr Odette, Palma, RN RN bb Lisset, Heide ag1 Jan Vang MD MD gs Lowrey, Tammy, RN RN tl3 Horacio Velazquez, RN RN mg2 Jim Richards jp3
--- NOTE | 2018-08-01 22:01 | EDPHYS ---
Physician Documentation [facility] Name: Roland Feldman Jr Age: 33 yrs Sex: Male : 1985 Arrival Date: 08/01/2018 Time: 18:16 Bed 24 Private MD: ED Physician Jan Vang HPI: 08/01 21:56 This 33 yrs old Black Male presents to ER via EMS with complaints of Headache. gs 21:56 The patient complains of pain to the forehead. The patient describes the headache as gs throbbing. Onset: The symptoms/episode began/occurred gradually, this morning. Associated signs and symptoms: Pertinent positives: vomiting, Pertinent negatives: fever. Severity of symptoms: At its worst the pain was moderate, in the emergency department the pain is unchanged. The symptoms are alleviated by nothing. the symptoms are aggravated by nothing. The patient has experienced similar episodes in the past, several times. Historical: - Allergies: 18:19 Amoxicillin; sv 18:19 Bactrim; sv 18:19 Ciprofloxacin; sv 18:19 CLAVULANIC ACID; sv 18:19 Doxycycline; sv 18:19 Levofloxacin; sv 18:19 Morphine; sv 18:19 Toradol; sv 18:19 TRIMETHOPRIM; sv 18:19 Vancomycin; sv 18:19 Zofran; sv - PMHx: 18:19 Asthma; Cerebral Palsy; cluster headaches; decubitus ulcers on feet; GERD; sv Hydrocephalus; Hypertension; spina bifida; - PSHx: 18:19 SHUNT REVISION 2002; AMPUTATION OF LOWER LIMB 2001; sv - Immunization history:: Adult Immunizations up to date. - Social history:: Smoking status: Patient uses tobacco products, smokes one-half pack cigarettes per day. - Ebola Screening: : No symptoms or risks identified at this time. ROS: 21:56 All other systems are negative. gs Exam: 21:56 Eyes: Pupils equal round and reactive to light, extra-ocular motions intact. Lids and gs lashes normal. Conjunctiva and sclera are non-icteric and not injected. Cornea within normal limits. Periorbital areas with no swelling, redness, or edema. ENT: Nares patent. No nasal discharge, no septal abnormalities noted. Tympanic membranes are normal and external auditory canals are clear. Oropharynx with no redness, swelling, or masses, exudates, or evidence of obstruction, uvula midline. Mucous membranes moist. Neck: Trachea midline, no thyromegaly or masses palpated, and no cervical lymphadenopathy. Supple, full range of motion without nuchal rigidity, or vertebral point tenderness. No Meningismus. Chest/axilla: Normal chest wall appearance and motion. Nontender with no deformity. No lesions are appreciated. Cardiovascular: Regular rate and rhythm with a normal S1 and S2. No gallops, murmurs, or rubs. Normal PMI, no JVD. No pulse deficits. Respiratory: Lungs have equal breath sounds bilaterally, clear to auscultation and percussion. No rales, rhonchi or wheezes noted. No increased work of breathing, no retractions or nasal flaring. Abdomen/GI: Soft, non-tender, with normal bowel sounds. No distension or tympany. No guarding or rebound. No evidence of tenderness throughout. Back: No spinal tenderness. No costovertebral tenderness. Full range of motion. Skin: Warm, dry with normal turgor. Normal color with no rashes, no lesions, and no evidence of cellulitis. MS/ Extremity: Pulses equal, no cyanosis. Neurovascular intact. Full, normal range of motion. 21:56 Constitutional: The patient appears alert, awake. 21:56 Neuro: Exam negative for acute changes, focal neuro deficits. Vital Signs: 18:19 BP 123 / 92; Pulse 81; Resp 18; Temp 98.4; Pulse Ox 99% ; Weight 125.19 kg; sv 22:00 BP 115 / 77; Pulse 81; Resp 18; Pulse Ox 98% on R/A; mg2 22:45 BP 120 / 80; Pulse 92; Resp 16; Pulse Ox 100% on R/A; tl3 MDM: 19:35 Patient medically screened. 21:56 Differential diagnosis: migraine, tension headache, shunt malfunction. Data reviewed: vital signs, nurses notes. Response to treatment: the patient's symptoms have resolved after treatment, and as a result, I will discharge patient. 08/01 19:37 Order name: CT Head Brain wo Cont; Complete Time: 21:39 gs 08/01 19:37 Order name: Shuntogram XRAY; Complete Time: 21:10 gs Administered Medications: 21:00 Drug: Phenergan 12.5 mg Route: IVP; Infused Over: 5 mins; Site: right forearm; tl3 23:10 Follow up: Response: No adverse reaction tl3 21:10 Not Given (wrong order): Zofran 4 mg IVP once; over 2 minutes gs 21:35 Not Given (Patient Refused): fentaNYL (PF) 50 mcg IVP once tl3 21:35 Drug: Dilaudid 0.5 mg Route: IVP; Infused Over: 2 mins; Site: right forearm; tl3 23:08 Follow up: Response: No adverse reaction tl3 21:59 Drug: NS 0.9% 1000 ml Route: IV; Rate: 1 bolus; Site: right forearm; mg2 23:08 Follow up: IV Status: Completed infusion; IV Intake: 1000ml tl3 Disposition: 08/01/18 22:00 Discharged to Home. Impression: Headache. - Condition is Stable. - Discharge Instructions: General Headache Without Cause. - Prescriptions for promethazine 25 mg Oral Tablet - take 1 tablet by ORAL route every 6 hours As needed; 12 tablet. - Medication Reconciliation Form, Thank You Letter, Antibiotic Education, Prescription Opioid Use form. - Follow up: Private Physician; When: 2 - 3 days; Reason: Re-evaluation by your physician. Signatures: Dispatcher [employer] EDHoa Hernandez RN RN Jan Vang MD MD Lupe Rg RN RN tl3 Horacio Velazquez RN RN mg2 Corrections: (The following items were deleted from the chart) 08/02 01:10 08/01 22:00 08/01/2018 22:00 Discharged to Home. Impression: Headache. Condition is tl3 Stable. Forms are Medication Reconciliation Form, Thank You Letter, Antibiotic Education, Prescription Opioid Use. Follow up: Private Physician; When: 2 - 3 days; Reason: Re-evaluation by your physician. gs
[2018-08-02 02:29] VITALS: TEMP 98.4
[2018-08-02 02:32] VITALS: BP 120/80; O2SAT 100
== END 2018-08-02 01:10 | disposition home or self-care (01) ==
LOC: ER 18:12
DX: R51 Headache (principal); Z88.1 Allergy status to other antibiotic agents; Z88.6 Allergy status to analgesic agent; Z88.8 Allergy status to other drugs, medicaments and biological substances; Z88.3 Allergy status to other anti-infective agents
CPT/HCPCS: 49427; 70450; 75809; J1170; J2405; J2550; J3010; J7030

== ENCOUNTER 2018-08-06 14:18 | Emergency (ER) | payer OTHER ==
--- OUTSIDE RECORDS SUMMARY | 2018-08-06 14:20 | XMS REPORT | Clinical Summary ---
:1985 Author Organization [facility] Address [address] [place] [address] Care Team Providers Name Role Phone Rishi [...] Not on file Results Not on fileafter 08/05/2017 Insurance Payer Benefit Plan / Group Subscriber ID Type Phone Address MEDICAID - MEDICAID MEDICAID [employer] xxxxxxxxx Medicaid [employer] CARE Non-Contracted Advance Directives For more information, please contact:[id number] Vasquez[place], [place] [phone] Code Status Date Activated Date Inactivated Comments Full Code 12/23/2016 1:36 AM 12/25/2016 8:43 PM This code status was determined by: Patient
--- OUTSIDE RECORDS SUMMARY | 2018-08-06 14:23 | XMS REPORT | Continuity of Care Document ---
:1985 Author Organization Interface Problems Problem Status Onset Classification Date Comments Source Date Reported HEADACHE Active 05/22/[address] SHUNT Active 11/15/[address] ACUTE HEADACHE Active 11/15/[address] Pressure ulcer Active 10/05/19 Finding 10/08/2017 [...] colitis [place] Acute pain Active Problem 11/22/2017 [facility] Asthma Resolved Problem 11/22/2017 [facility] Bronchitis Resolved Problem 11/22/2017 [facility] Cerebral palsy Resolved Problem 11/22/2017 [facility] Headache Active Problem 11/22/2017 [facility] Hydrocephalus Resolved Problem 11/22/2017 [facility] Osteomyelitis Resolved Problem 11/22/2017 [facility] [place] [facility] HEADACHE Active [facility] Medications Medication Details Route Status Patient Ordering Order Source Instructions Provider Date Docusate Sodium 100 mg=1 cap, Active [place] 100 MG Oral PO, BID, 0 2017 Medical Capsule Refill(s) [place] Zosyn 0 Refill(s) Active [facility] 2017 [facility] celecoxib 200 200 mg=1 cap, Active 11/19[facility] [place] mg oral capsule PO, BID, 0 2018 Medical Refill(s) [place] ascorbic acid 500 mg=1 tab, Active 11/19[facility] [place] PO, BID, 0 2017 Medical Refill(s) [place] acetaminophen 1,000 mg=2 tab, Active 11/19[facility] [place] 500 mg oral PO, Q6Hnow, 0 2017 Medical tablet Refill(s) [place] Oxycodone 5 mg=1 tab, PO, Active 11/19[facility] [place] Hydrochloride 5 Q4H, PRN Pain 2018 Medical MG Oral Tablet Score 4-6, 0 Center Refill(s) zinc sulfate 220 mg=1 cap, Active 11/19[facility] [place] 220 mg oral PO, Daily, 0 2018 Medical capsule Refill(s) [place] multivitamin 1 tab, PO, Active 11/19[facility] [place] Daily, 0 2018 Medical Refill(s) [place] methocarbamol 1,000 mg=2 tab, Active 11/19[facility] [place] 500 mg oral PO, Q8H, 0 2018 Medical tablet Refill(s) [place] LORazepam 0.5 0.5 mg=1 tab, Active [place] mg oral tablet PO, Q8H, PRN 2018 Medical Anxiety, 0 Center Refill(s) Lidocaine 3 patch, TOP, Active [place] Hydrochloride Daily, Remove 2018 Medical 0.05 MG/MG after 12 hours, Center Transdermal 0 Refill(s) Patch [Lidoderm] Robaxin 1,000 mg, 2 No Longer [facility] tab, Route: PO, Active 2018 Medical Drug [...] Ativan 0.5 mg, 1 tab, No Longer [facility] Route: PO, Drug Active 2018 Medical form: TAB, Q8H, Center Dosing Weight 127.027, kg, PRN Anxiety, Start date: 11/17/17 10:18:00 CDT, Duration: 7 day, Stop date: 11/24/17 10:17:00 CDTNotes: (Same as: Ativan) Trazodone 50 mg, 1 tab, No Longer [facility] Hydrochloride Route: PO, Drug Active 2018 Medical [...] day. Oxycodone 10 mg, 2 tab, Inactive [facility] Hydrochloride 5 Route: PO, Drug 2018 Medical MG Oral Tablet form: TAB, Center ONCE, Dosing Weight 127.027, kg, Start date: 11/16/17 17:01:00 CDT, Stop date: 11/16/17 17:01:00 CDTNotes: (Same as: Roxicodone) Celebrex 200 mg, 1 cap, No Longer [facility] Route: PO, Drug Active 2018 Medical form: CAP, BID, [place] Dosing Weight 127.027, kg, Start date: 11/16/17 17:00:00 CDT, Duration: 30 day, Stop date: 12/16/17 9:00:00 CDTNotes: NSAID. Please check indication. Not for seizure. (Same As: CeleBREX) Vancomycin 1,500 mg, 250 No Longer [place] mL, Route: Active 2018 Medical IVPB, Drug Center form: INJ, [id number], Dosing Weight 127.27, kg, Start date: 11/16/17 16:00:00 CDT, Stop date: 11/21/17 8:00:00 CDT, ABX Indication: Skin/Soft Tissue InfectionNotes: TIME CRITICAL MEDICATION Same as: Vancocin-NS (premixed) Infusion rate 2001 mg: infuse over 2.5 hours Lidocaine 3 patch, Route: No Longer [facility] Hydrochloride TOP, Daily, Active 2017 Medical 0.05 MG/MG Drug form: [place] Transdermal FILM, Start Patch date: 11/16/17 [Lidoderm] 9:00:00 CDT, Duration: 7 day, Stop date: 11/22/17 9:00:00 CDT, Remove after 12 hoursNotes: Apply only once for up to 12 hours in a 24-hour period (12 hours on and 12 hours off). (Same as: Lidoderm) "Remove old patch before application of new patch" Phenergan 12.5 mg, 0.5 Inactive [place] mL, Route: 2018 [facility] IVPB, Drug Center form: INJ, ONCE, Dosing Weight 127.027, kg, Priority: NOW, Start date: 11/15/17 17:40:00 CDT, Stop date: 11/15/17 17:40:00 CDTNotes: Do not give IV push. (Same as: Phenergan) Dilaudid 0.5 mg, 0.25 Inactive [place] mL, Route: IVP, 2017 Medical Drug form: INJ, Center ONCE, Dosing Weight 127.027, kg, Priority: NOW, Start date: 11/15/17 17:40:00 CDT, Stop date: 11/15/17 17:40:00 CDTNotes: Same as Dilaudid Tramadol 100 mg, 2 tab, No Longer [facility] Route: PO, Drug Active 2017 Medical form: TAB, Center Q6Hnow, Dosing Weight 127.027, kg, Start date: 11/15/17 17:00:00 CDT, Duration: 30 day, Stop date: 12/15/17 11:00:00 CDTNotes: Not to exceed 400mg/day. (Same As: Ultram) gabapentin 600 mg, 2 cap, No Longer [facility] Route: PO, Drug Active 2017 Medical form: CAP, Center Q8Hnow, Dosing Weight 127.027, kg, Start date: 11/15/17 17:00:00 CDT, Stop date: 12/15/17 9:00:00 CDTNotes: (Same as: Neurontin) Acetaminophen 1,000 mg, 2 No Longer [facility] tab, Route: PO, Active 2017 Medical Drug form: TAB, Center Q6Hnow, Dosing Weight 127.027, kg, Start date: 11/15/17 17:00:00 CDT, Duration: 30 day, Stop date: 12/15/17 11:00:00 CDTNotes: Max acetaminophen 4000 mg/day (4 gm/day). (Same as: Tylenol Extra Strength) Robaxin 500 mg, 1 tab, No Longer [facility] Route: PO, Drug Active 2017 Medical form: TAB, TID, Center Dosing Weight 127.027, kg, Start date: 11/15/17 17:00:00 CDT, Duration: 30 day, Stop date: 12/15/17 13:00:00 CDTNotes: (Same as:Robaxin) Oxycodone 5 mg, 1 tab, No Longer [facility] Hydrochloride 5 Route: PO, Drug Active 2018 [...] CDT Phenergan 25 mg, 1 tab, Inactive [facility] Route: PO, Drug 2018 Medical form: TAB, [...] Docusate 100 mg, 1 cap, No Longer [facility] Route: PO, Drug Active 2018 Medical form: CAP, BID, Center Dosing Weight 127.27, kg, Start date: 11/15/17 9:00:00 CDT, Duration: 30 day, Stop date: 12/14/17 17:00:00 CDTNotes: (Same as: Colace) (Do Not Crush) Zinc Sulfate 220 mg, 1 cap, No Longer [place] Route: PO, Drug Active 2018 Medical form: CAP, Center Daily, Dosing Weight 127.27, kg, Start date: 11/15/17 9:00:00 CDT, Duration: 30 day, Stop date: 12/14/17 9:00:00 CDTNotes: (Zinc sulfate capsule) - 220 mg Zinc sulfate=50 mg elemental zinc Same as Zinc Sulfate ascorbic acid 500 mg, 1 tab, No Longer [place] Route: PO, Drug Active 2017 Medical form: TAB, BID, Center Dosing Weight 127.27, kg, Start date: 11/15/17 9:00:00 CDT, Duration: 30 day, Stop date: 12/14/17 17:00:00 CDTNotes: (Same as: Vitamin C) multivitamin 1 tab, Route: No Longer [place] PO, Drug Form: Active 2018 Medical TAB, Dosing Center Weight 127.27, kg, Daily, Start date: 11/15/17 9:00:00 CDT, Duration: 30 day, Stop date: 12/14/17 9:00:00 CDTNotes: (Same as:Thera) WASTE: F/P - Black; E - Municipal Trash Bin Take with food. Naproxen 500 mg, 1 tab, Inactive [place] Route: PO, Drug 2017 Medical form: TAB, Center [id number], Dosing Weight 127.27, kg, Start date: 11/15/17 2:00:00 CDT, Duration: 30 day, Stop date: 12/14/17 14:00:00 CDTNotes: (Same as: Naprosyn) Take with food. Zosyn 3.375 gm, No Longer [facility] Route: IVPB, Active 2018 Medical Drug form: [...] Active 2017 Medical Drug form: INJ, Center [id number], Dosing Weight 127.27, kg, Consider for obese [...] Stop date: 12/15/17 1:45:00 CDTNotes: (Same as: [place] 325/5) Do not exceed 4gm/day of acetaminophen. [...] Bin Sodium Chloride 1,000 mL, 1000 Inactive [facility] 0.9% (Bolus) IV ml/hr, Infuse 2018 Medical [...] Extra Strength) Rocephin 1 gm, Route: Inactive 05/04[facility] IVP, Drug form: 2018 Medical PDR/INJ, ONCE, Center Dosing Weight 127.273, kg, Priority: STAT, Start date: 11/14/17 21:21:00 CDT, Stop date: 11/14/17 21:21:00 CDT, ABX Indication: Urinary Tract InfectionNotes: (Same As: Rocephin). MEDICATION WASTE Product Size: 1000 mg Product Wasted: _0__ mg Morphine 4 mg, Route: Inactive [facility] IVP, ONCE, 2018 Medical Dosing Weight Center 127.273, kg, Priority: STAT, Start date: 11/14/17 19:05:00 CDT, Stop date: 11/14/17 19:05:00 CDT Benadryl 25 mg, 0.5 mL, Inactive [facility] Route: IVP, 2017 Medical Drug form: INJ, Center ONCE, Dosing Weight 127.273, kg, Priority: STAT, Start date: 11/14/17 18:14:00 CDT, Stop date: 11/14/17 18:14:00 CDTNotes: (Same as: Benadryl) Benadryl 50 mg, 2 cap, Inactive 11/14[facility] Route: PO, Drug 2017 Medical form: CAP, Center ONCE, Dosing Weight 127.273, kg, Priority: STAT, Start date: 11/14/17 17:56:00 CDT, Stop date: 11/14/17 17:56:00 CDTNotes: (Same as: Benadryl) Morphine 4 mg, 1 mL, Inactive 11/14[facility] Route: IVP, 2017 Medical Drug form: [...] For Pain [place] Oxycodone FOUR TIMES Active [facility] St[facility] Hcl/Acetaminoph DAILY 2016 [facility] [place] Meropenem Q8H Active [facility] 2013 [facility] [place] Collagenase DAILY Active [facility] 2013 [facility] [place] Ciprofloxacin Q12H Active [facility] St[facility] 400mg Iv 2013 [facility] [place] Amikacin Sulf DAILY Active [facility] 2013 [facility] [place] Linezolid TWICE DAILY Inactive [facility] 2013 [facility] [place] Allergies, Adverse Reactions, Alerts Substance Category Reaction Severity Reaction Status Date Comments Source type Reported levofloxacin Hives Moderate Allergy to Active [facility] St[facility] Substance 8 [facility] [place] sulfamethoxa Hives Moderate Allergy to Active [facility] St[facility] zole Substance 8 [facility] [place] ketorolac Nausea/Vo Allergy to Active [facility] St. tromethamine [place] Substance 8 [facility] [place] vancomycin Hives Allergy to Active [facility] St[facility] Substance 8 [facility] [place] ondansetron Nausea/Vo Mild Propensity Active [facility] St[facility] [place] to adverse 8 [facility] [place] ciprofloxaci Nausea/Vo Propensity Active [facility] St[facility] n [place] to adverse 8 [facility] [place] doxycycline Nausea/Vo Propensity Active [facility] St[facility] [place] to adverse 8 [facility] [place] morphine Assertion Drug Active [facility] amoxicillin Assertion Drug Active [facility] Toradol Assertion Drug Active [facility] Minocin Assertion Drug Active [facility] Zofran Assertion Drug Active [facility] Levaquin Assertion Drug Active [facility] Bactrim Assertion Drug Active [facility] Immunizations Immunization Date Given Site Status Last Updated Comments Source Results Order Name Results Value Reference Date Interpretation Comments Source Range Brain-Outs Brain-Outsid EXAM: CT BRAIN WITHOUT CONTRAST -- OUTSIDE CONSULT 05/22 - [facility] justina e Consult - Medical Consult CT This report was dictated by a Cleaning Handyman/Fellow. I have personally reviewed the images as Center well as the Resident's interpretation and agree with the findings. 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 205 images. Imaging was performed at [facility] on 05/22/2018. IV contrast: None. [...] agrees with the preliminary report by the president [place]. CHEM PANEL B/C Ratio 17 6 - 25 11/[address] CHEM PANEL Globulin 4.3 g/dL 2.7 - 4.2 11/[address] CHEM PANEL A/G Ratio 0.7 0.7 - 1.6 11/[address] CHEM PANEL AGAP 14.4 meq/L 10.0 - 11/19 [facility] 20.0 [facility] CHEM PANEL eGFR 113 11/19 Result Comment: The eGFR is calculated using the CKD-EPI formula. In most young, healthy individuals the eGFR will be >90 mL/ min/1.73m2. The eGFR declines with age. An eGFR of 60-89 may be normal in [facility] mL/min/1.7 some populations, particularly the elderly, for whom the CKD-EPI formula has not been extensively validated. Use of the eGFR is not recommended in the following populations: [address] Individuals with unstable creatinine concentrations, including [...] Phos 76 unit/L 39 - 136 05/ [address] CHEM PANEL ALT 35 unit/L 0 - 65 / [address] CHEM PANEL Albumin Lvl 2.8 g/dL 3.5 - 5.0 / [address] CHEM PANEL Total 7.1 g/dL 6.4 - 8.4 11/19 [facility] Protein [address] CHEM PANEL Calcium Lvl 8.7 mg/dL 8.5 - 10.5 11/[address] CHEM PANEL AST 18 unit/L 0 - 37 / [address] CHEM PANEL Bili Total 0.3 mg/dL 0.2 - 1.3 11/[address] CHEM PANEL Potassium 4.4 meq/L 3.5 - 5.1 11/19 [facility] [address] [place] [address] CHEM PANEL Chloride Lvl 109 meq/L 95 - 109 11/[address] CHEM PANEL CO2 23 meq/L 24 - 32 / [address] CHEM PANEL Glucose Lvl 114 mg/dL 70 - 99 11/[address] CHEM PANEL Creatinine 1.01 mg/dL 0.50 - 11/19 [facility] 1.40 /[address] [place] [address] CHEM PANEL BUN 17 mg/dL 7 - 22 11/[address] CHEM PANEL Sodium Lvl 142 meq/L 135 - 145 11/[address] HEMATOLOGY Basophils 0.6 % 0.0 - 1.0 / [address] HEMATOLOGY Segs-Bands # 4.8 K/CMM 1.5 - 8.1 11/[address] HEMATOLOGY Monocytes # 0.7 K/CMM 0.0 - 0.8 / [address] HEMATOLOGY Lymphocytes 1.9 K/CMM 1.0 - 5.5 / [address] HEMATOLOGY Monocytes 9.4 % 2.0 - 12.0 / [address] HEMATOLOGY Eosinophils 0.2 K/CMM 0.0 - 0.5 11/19 [facility] # /2017 [facility] HEMATOLOGY Eosinophils 2.9 % 0.0 - 4.0 11/19 [facility] HEMATOLOGY Segs 62.2 % 45.0 - 11/19 [place] 75.0 [facility] HEMATOLOGY Lymphocytes 24.9 % 20.0 - 11/19 [place] 40.0 [facility] HEMATOLOGY MCH 27.5 pg 27.0 - 11/19 [place] 31.0 [facility] HEMATOLOGY MCV 85.3 fL 80.0 - 11/19 [place] 94.0 [facility] HEMATOLOGY Hct 43.9 % 42.0 - 11/19 [place] 54.0 [facility] HEMATOLOGY Hgb 14.2 g/dL 14.0 - 11/19 18.0 [facility] HEMATOLOGY WBC 7.7 K/CMM 3.7 - 10.4 11/19 [facility] HEMATOLOGY RBC 5.15 M/CMM 4.70 - 11/19 [place] 6.10 [facility] HEMATOLOGY MPV 8.4 fL 7.4 - 10.4 11/19 [facility] HEMATOLOGY MCHC 32.3 g/dL 32.0 - 11/19 [place] 36.0 [facility] HEMATOLOGY RDW 17.3 % 11.5 - 11/19 14.5 [facility] HEMATOLOGY Platelet 317 K/CMM 133 - 450 11/[address] CHEM PANEL Globulin 4.4 g/dL 2.7 - 4.2 11/18 2017 [facility] CHEM PANEL A/G Ratio 0.6 0.7 - 1.6 11/18 [facility] CHEM PANEL B/C Ratio 17 6 - 25 11/18 [facility] CHEM PANEL AGAP 11.3 meq/L 10.0 - 11/18 20.0 [facility] CHEM PANEL eGFR 134 11/18 Result Comment: The eGFR is calculated using the CKD-EPI formula. In most young, healthy individuals the eGFR will be >90 mL/ min/1.73m2. The eGFR declines with age. An eGFR of 60-89 may be normal in [facility] mL/min/1.7 some populations, particularly the elderly, for whom the CKD-EPI formula has not been extensively validated. Use of the eGFR is not recommended in the following populations: [address] Individuals with unstable creatinine concentrations, including [...] PANEL Creatinine 0.84 mg/dL 0.50 - 11/18 [facility] Lvl 1.40 [facility] CHEM PANEL Sodium Lvl 142 meq/L 135 - 145 11/[address] CHEM PANEL Glucose Lvl 99 mg/dL 70 - 99 11/[address] CHEM PANEL BUN 14 mg/dL 7 - 22 11/[address] CHEM PANEL Alk Phos 79 unit/L 39 - 136 11/[address] CHEM PANEL Bili Total 0.3 mg/dL 0.2 - 1.3 11/[address] CHEM PANEL AST 14 unit/L 0 - 37 11/[address] CHEM PANEL ALT 43 unit/L 0 - 65 11/[address] CHEM PANEL Total 7.1 g/dL 6.4 - 8.4 11/18 [facility] Protein [address] CHEM PANEL Albumin Lvl 2.7 g/dL 3.5 - 5.0 11/[address] CHEM PANEL Calcium Lvl 9.2 mg/dL 8.5 - 10.5 11/[address] CHEM PANEL CO2 21 meq/L 24 - 32 11/[address] CHEM PANEL Potassium 4.3 meq/L 3.5 - 5.1 11/18 [facility] Lvl [address] [place] [address] CHEM PANEL Chloride Lvl 114 meq/L 95 - 109 11/[address] HEMATOLOGY MCHC 32.5 g/dL 32.0 - 11/18 [facility] 36.0 [facility] HEMATOLOGY RDW 17.5 % 11.5 - 11/18 [facility] 14.5 [facility] HEMATOLOGY Platelet 400 K/CMM 133 - 450 11/[address] HEMATOLOGY MPV 8.5 fL 7.4 - 10.4 11/[address] [facility] HEMATOLOGY WBC 6.6 K/CMM 3.7 - 10.4 11/[address] [place] [address] HEMATOLOGY RBC 5.17 M/CMM 4.70 - 11/18 [facility] 6.10 [facility] HEMATOLOGY MCV 86.1 fL 80.0 - 11/18 [facility] 94.0 [facility] HEMATOLOGY Hct 44.5 % 42.0 - 11/18 [facility] 54.0 [facility] HEMATOLOGY MCH 28.0 pg 27.0 - 11/18 [facility] 31.0 [facility] HEMATOLOGY Hgb 14.5 g/dL 14.0 - 11/18 [facility] 18.0 [facility] HEMATOLOGY Lymphocytes 1.7 K/CMM 1.0 - 5.5 11/18 [facility] HEMATOLOGY Monocytes # 0.7 K/CMM 0.0 - 0.8 11/[address] HEMATOLOGY Eosinophils 0.2 K/CMM 0.0 - 0.5 11/18 [facility] HEMATOLOGY Lymphocytes 26.1 % 20.0 - 11/18 [facility] 40.0 [facility] HEMATOLOGY Segs 59.3 % 45.0 - 11/18 [facility] 75.0 [facility] HEMATOLOGY Basophils 0.8 % 0.0 - 1.0 11/[address] HEMATOLOGY Monocytes 10.5 % 2.0 - 12.0 11/[address] HEMATOLOGY Eosinophils 3.3 % 0.0 - 4.0 11/[address] HEMATOLOGY Segs-Bands # 3.9 K/CMM 1.5 - 8.1 11/[address] TOXICOLOGY Vanco Tr TND 15:30pm 11/[address] TOXICOLOGY Vanco Tr 9.1 ug/ml 11/[address] CHEM PANEL Glucose Lvl 74 mg/dL 70 - 99 11/[address] CHEM PANEL BUN 12 mg/dL 7 - 22 11/[address] CHEM PANEL Creatinine 0.75 mg/dL 0.50 - 11/17 [facility] Lvl 1.40 [facility] CHEM PANEL eGFR 140 11/17 Result Comment: The eGFR is calculated using the CKD-EPI formula. In most young, healthy individuals the eGFR will be >90 mL/ min/1.73m2. The eGFR declines with age. An eGFR of 60-89 may be normal in [facility] mL/min/1. some populations, particularly the elderly, for whom the CKD-EPI formula has not been extensively validated. Use of the eGFR is not recommended in the following populations: [address] Individuals with unstable creatinine concentrations, including [...] Lvl 2.9 g/dL 3.5 - 5.0 11/[address] CHEM PANEL Globulin 4.4 g/dL 2.7 - 4.2 11/[address] CHEM PANEL A/G Ratio 0.7 0.7 - 1.6 11/[address] CHEM PANEL Bili Total 0.4 mg/dL 0.2 - 1.3 11/[address] CHEM PANEL Alk Phos 71 unit/L 39 - 136 11/[address] CHEM PANEL AST 15 unit/L 0 - 37 11/[address] CHEM PANEL ALT 28 unit/L 0 - 65 11/[address] CHEM PANEL Potassium 4.4 meq/L 3.5 - 5.1 11/17 [facility] [address] [place] [address] CHEM PANEL Sodium Lvl 147 meq/L 135 - 145 11/[address] CHEM PANEL CO2 25 meq/L 24 - 32 11/[address] CHEM PANEL Chloride Lvl 114 meq/L 95 - 109 / [address] CHEM PANEL B/C Ratio 16 6 - 25 11/[address] CHEM PANEL Calcium Lvl 8.7 mg/dL 8.5 - 10.5 11/[address] CHEM PANEL AGAP 12.4 meq/L 10.0 - 05/ [facility] 20.0 [facility] CHEM PANEL Total 7.3 g/dL 6.4 - 8.4 11/17 [facility] [place] Protein [address] HEMATOLOGY Platelet 345 K/CMM 133 - 450 05 [facility] HEMATOLOGY MPV 8.7 fL 7.4 - 10.4 11/17 [facility] HEMATOLOGY WBC 6.9 K/CMM 3.7 - 10.4 11/17 [facility] HEMATOLOGY RBC 5.30 M/CMM 4.70 - 11/17 6.10 [facility] HEMATOLOGY MCHC 32.8 g/dL 32.0 - 11/17 36.0 [facility] HEMATOLOGY MCH 27.9 pg 27.0 - 11/17 31.0 [facility] HEMATOLOGY Hgb 14.8 g/dL 14.0 - 11/17 18.0 [facility] HEMATOLOGY MCV 85.0 fL 80.0 - 11/17 [facility] 94.0 [facility] HEMATOLOGY Hct 45.1 % 42.0 - 11/17 54.0 [facility] HEMATOLOGY RDW 17.5 % 11.5 - 11/17 14.5 [facility] HEMATOLOGY Eosinophils 0.2 K/CMM 0.0 - 0.5 11/17 [facility] # [facility] HEMATOLOGY Lymphocytes 2.0 K/CMM 1.0 - 5.5 11/17 [facility] HEMATOLOGY Monocytes # 0.7 K/CMM 0.0 - 0.8 05 [facility] HEMATOLOGY Eosinophils 2.4 % 0.0 - 4.0 11/17 [facility] HEMATOLOGY Basophils 0.6 % 0.0 - 1.0 11/[address] [place] [address] HEMATOLOGY Segs-Bands # 4.0 K/CMM 1.5 - 8.1 11/17 [facility] HEMATOLOGY Monocytes 10.4 % 2.0 - 12.0 11/17 [facility] HEMATOLOGY RBC Morph Normal 11/17 [facility] (11/17/17 2:07 AM) [place] HEMATOLOGY Segs 58.1 % 45.0 - 11/17 75.0 [facility] HEMATOLOGY Plt Morph Normal 11/17 [facility] (11/17/17 2:07 AM) [place] HEMATOLOGY Lymphocytes 28.5 % 20.0 - 11/17 [place] 40.0 [facility] HEMATOLOGY Basophils # 0.1 K/CMM 0.0 - 0.2 11/16 [facility] HEMATOLOGY Polychrom Moderate None Seen 11/16 [facility] [place] (11/16/17 11:07 AM) TOXICOLOGY Vanco Tr TND * 11/[address] TOXICOLOGY Vanco Tr 22.3 ug/ml 11/[address] CHEM PANEL Magnesium 2.3 mg/dL 1.8 - 2.4 11/15 [facility] CHEM PANEL Phosphorus 3.5 mg/dL 2.5 - 4.5 11/[address] HEMATOLOGY PT 14.0 s 12.0 - 11/15 [facility] 14. [facility] HEMATOLOGY PTT 37.6 s 22.9 - 11/15 [facility] 35. [facility] HEMATOLOGY INR 1.08 0.85 - 11/15 [facility] 1. [facility] IMMUNOLOGY C-REACTIVE 13.1 mg/L <=2.9 mg/L 11/15 [facility] PROTEIN [facility] IMMUNOLOGY Prealbumin 25.2 mg/dL 18.0 - 11/15 [facility] 45.0 [facility] CHEM PANEL Lactic Acid 0.9 mMol/L 0.5 - 2.2 11/15 [facility] HEMATOLOGY Sed Rate 5 mm/h 0 - 15 11/[address] IMMUNOLOGY C-REACTIVE 15.8 mg/L <=2.9 mg/L 11/15 [facility] PROTEIN [address] HEMATOLOGY PT 13.0 s 12.0 - 11/15 [facility] 14. [facility] HEMATOLOGY INR 0.98 0.85 - 11/15 [facility] 1. [facility] HEMATOLOGY PTT 33.2 s 22.9 - 11/15 [facility] 35. [facility] BLOOD BANK Antibody Negative 11/14 [facility] RESULTS [facility] (11/14/17 6:51 PM) [place] BLOOD BANK ABO/Rh AB POS 11/14 [facility] RESULTS [address] [place] [address] URINE AND UA 0.2 EU/dL 0.1 - 1.0 11/14 [facility] STOOL Urobilinogen /[address] [place] [address] URINE AND UA Nitrite Negative Negative 11/14 [facility] STOOL [facility] (11/14/17 6:35 PM) [place] URINE AND UA Glucose Negative Negative 11/14 [facility] (11/14/17 6:35 PM) [place] URINE AND UA Ketones Negative Negative 11/14 [place] [address] Medical *NA* Center (11/14/17 6:35 PM) URINE AND UA Bili Negative Negative 11/14 [facility] [address] [place] [address] *NA* [place] (11/14/17 6:35 PM) URINE AND UA Blood Trace Negative 11/14 [facility] *ABN* [place] (11/14/17 6:35 PM) URINE AND UA Leuk Est Small Negative 11/14 [facility] *ABN* [place] (11/14/17 6:35 PM) URINE AND UA Spec Grav 1.020 <=1.030 11/[address] URINE AND UA pH 6.0 5.0 - 8.0 11/[address] URINE AND UA Color Yellow Yellow 11/14 [facility] [address] [place] [address] *NA* [place] (11/14/17 6:35 PM) URINE AND UA Protein Trace Negative 11/14 [facility] *ABN* [place] (11/14/17 6:35 PM) URINE AND UA Turbidity Slight Cloudy Clear 11/[address] (11/14/17 6:35 PM) [place] URINE AND UA Hyal Cast 0-2 0 - 2 11/[address] (11/14/17 6:35 PM) [place] URINE AND UA Bacteria Occasional None Seen 11/14 [facility] /HPF /HPF /2017 [facility] URINE AND UA RBC 11-20 /HPF 0 - 2 11/[address] URINE AND UA Sq Epi Occasional Few /LPF 11/14 [facility] /LPF /[address] [place] [address] URINE AND UA WBC 51-100 None Seen 11/14 [facility] /HPF /HPF /[address] [place] [address] HEMATOLOGY Basophils # 0.1 K/CMM 0.0 - 0.2 11/[address] HEMATOLOGY Polychrom Slight 11/[address] HEMATOLOGY Plt Morph Normal 11/[address] (11/14/17 6:20 PM) [place] Brain Brain shunt EXAM: SKULL 2 VIEWS 11/14 - [facility] shunt series DX /2017 - Medical series DX EXAM: CHEST 2 VIEWS This report was dictated by a Cleaning Handyman/Fellow. I have personally reviewed the images as [...] EXAM: CT BRAIN WITHOUT CONTRAST 11/14 - [facility] contrast contrast CT /2017 - Medical CT This report was dictated by a Cleaning Handyman/Fellow. I have personally reviewed the images as Center well as the Resident's interpretation and agree with the findings. DATE: 11/14/2017 627 PM CDT Read by: Josemanuel Hoyt MD Resident: Josemanuel Hoyt MD Dictated Date/time: 11/14/17 18:45 Electronically Signed by: Jovan Talley MD 11/14/17 21:12 FINAL REPORT INDICATION: 32-year-old male patient with history of vp scientific affairs shunt malfunction COMPARISON: CT of the brain 07/30/2014, 03/27/2013. TECHNIQUE: Axial CT images of the brain were obtained. Sagittal and coronal reformats. IV contrast: None. FINDINGS: An orphaned right occipital approach AROMATHERAPIST shunt is present. Also present is a right frontal approach AROMATHERAPIST shunt with tip in the left lateral [...] EXAM: XR CHEST 1 VIEW 11/14 - [facility] 1view DX DX /2017 - Medical This report was dictated by a Cleaning Handyman/Fellow. I have personally reviewed the images as [...] Level 142 mEq/L 135 - 145 10/[address] [facility] [address] Studies /2017 [facility] Potassium 4.4 mEq/L 3.6 - 5.0 10/07 [facility] [address] Studies Level /2017 [facility] Magnesium 1.8 mg/dL 1.8 - 2.5 10/07 [facility] [address] Studies Level /2017 [facility] [place] [facility] Glucose 126 mg/dL 65 - 120 10/[address] [facility] [address] Studies Level /2017 [facility] [place] [facility] Estimat null 90 10/07 [facility] [address] Studies Glomerular /2017 [facility] Filtration [place] Rate Laboratory Creatinine 0.83 mg/dL 0.61 - 10/07 [facility] [address] Studies 1.24 [facility] [place] [facility] Chloride 108 mEq/L 101 - 111 10/07 [facility]. Studies Level /2017 [facility] [place] Carbon 27 mEq/L 21 - 31 10/07 [facility]. Studies Dioxide /2017 [facility] Level [place] [facility] Calcium 9.1 mg/dL 8.5 - 10.5 10/07 [facility]. Studies Level /2017 [facility] [place] [facility] Blood Urea 15 mg/dL 6 - 20 10/07 [facility]. Studies Nitrogen /2017 [facility] [place] [facility] White Blood 7.0 K/uL 4.3 - 10.9 10/07 [facility]. Studies Count /2017 [facility] [place] Red Cell 17.4 % 12.1 - 10/07 [facility]. Studies Distribution 15.2 [facility] Width [place] [facility] Red Blood 5.14 M/uL 4.33 - 10/07 [facility]. Studies Count 5.43 [facility] [place] [facility] Platelet 270 K/uL 152 - 406 10/07 [facility]. Studies Count /2017 [facility] [place] Neutrophils 62.3 % 41.7 - 10/07 [facility]. Studies % 73.7 /2017 [facility] [place] Monocytes % 9.3 % 3.3 - 12.3 10/07 [facility]. Studies /2017 [facility] [place] [facility] Mean 8.3 fL 7.6 - 11.3 10/07 [facility]. Studies Platelet /2017 [facility] Volume [place] [facility] Mean 82.8 fL 80 - 100 10/07 [facility]. Studies Corpuscular /2017 [facility] Volume [place] [facility] Mean 33.4 g/dL 32.0 - 10/07 [facility]. Studies Corpuscular 36.0 [facility] Hemoglobin [place] Concent [facility] Mean 27.6 pg 27.0 - 10/07 [facility]. Studies Corpuscular 35.0 /2017 [facility] Hemoglobin [place] [facility] Lymphocytes 24.6 % 15.3 - 10/07 [facility]. Studies % 44.8 /2017 [facility] [place] [facility] Hemoglobin 14.2 g/dL 13.6 - 10/07 [facility] [address] Studies 17.9 /2017 [facility] Hematocrit 42.6 % 39.6 - 10/[address] [facility] [address] Studies 49.0 [facility] [place] [facility] Eosinophils 3.3 % 0 - 4.4 10/07 [facility] [address] Studies % /2017 [facility] [place] Basophils % 0.5 % 0 - 1.3 10/07 [facility] [address] Studies /2017 [facility] [place] [facility] Absolute 4.4 K/uL 1.8 - 8.0 10/07 [facility] [address] Studies Neutrophil /2017 [facility] [place] [facility] Absolute 0.7 K/uL 0.1 - 1.3 10/07 [facility] [address] Studies Monocytes /2017 [facility] (CBC) [place] [facility] Absolute 1.7 K/uL 0.7 - 4.9 10/07 [facility] [address] Studies Lymphocytes /2017 [facility] (CBC) [place] [facility] Absolute 0.2 K/uL 0 - 0.5 10/07 [facility] [address] Studies Eosinophils [facility] (CBC) [place] [facility] Absolute 0.0 K/uL 0 - 0.5 10/07 [facility] [address] Studies Basophils [facility] (CBC) [place] Microbiolo Providencia Providenci 10/06 [facility] [address] gy Studies Rettgeri a Rettgeri /2017 [facility] [place] Urine WBC null 10/04 [facility] [address] Studies /2017 [facility] [place] [facility] Urine null 10/04 [facility] [address] Studies Squamous /2017 [facility] Epithelial [place] Cells Laboratory Urine RBC Urine RBC 10/04 [facility] [address] Studies /2017 [facility] [place] [facility] Urine Urine 10/04 [facility] [address] Studies Culture Culture /2017 [facility] Reflexed Reflexed [place] [facility] Urine null 10/04 [facility] [address] Studies Bacteria /2017 [facility] [place] [facility] Urine pH 6.5 10/04 [facility] [address] Studies /2018 [facility] Urine 2.0 mg/dL 10/04 [facility] [address] Studies Urobilinogen /2017 [facility] [place] [facility] Urine Total Urine 10/04 [facility] [address] Studies Protein Total /2017 [facility] Protein [place] [facility] Urine 1.020 10/[address] [facility] [address] Studies Specific /2017 [facility] [place] [facility] Urine Urine 10/[address] [facility] [address] Studies Nitrite Nitrite /2017 [facility] [place] [facility] Urine Urine 10/04 [facility] [address] Studies Leukocyte Leukocyte /2017 [facility] Esterase Esterase [place] [facility] Urine Urine 10/[address] [facility] [address] Studies Ketones Ketones [facility] [place] [facility] Urine Urine 10/04 [facility] Studies Glucose Glucose [facility] [place] [facility] Urine Color Urine 10/04 [facility]. Studies Color /2017 [facility] [place] [facility] Urine Blood Urine 10/04 [facility]. Studies Blood [facility] [place] [facility] Urine Urine 10/04 [facility]. Studies Bilirubin Bilirubin [facility] [place] [facility] Urine Urine 10/04 [facility]. Studies Appearance Appearance /2017 [facility] [place] [facility] Prothrombin 13.0 9.5 - 12.5 10/03 [facility] Studies Time SECONDS [facility] [place] [facility] INR 1.10 10/03 [facility]. Studies Internationa /2017 [facility] l Normalized [place] Ratio Laboratory Total 1.9 mg/dL 0.3 - 1.2 10/03 [facility] Studies Bilirubin /2017 [facility] [place] [facility] Serum Total 7.8 g/dL 6.0 - 8.3 10/03 [facility]. Studies Protein /2017 [facility] [place] [facility] Globulin 4.2 g/dL 2.3 - 3.5 10/03 [facility]. Studies /2017 [facility] [place] [facility] Direct 0.6 mg/dL 0 - 0.2 10/03 [facility] Studies Bilirubin /2017 [facility] [place] [facility] Aspartate 88 IU/L 10 - 42 10/03 [facility]. Studies Amino Transf /2017 [facility] (AST/SGOT) [place] [facility] Alkaline 192 IU/L 42 - 121 10/03 [facility]. Studies Phosphatase /2017 [facility] [place] [facility] Albumin/Glob 0.9 1.1 - 1.8 10/03 [facility] Studies ulin Ratio /2017 [facility] [place] [facility] Albumin 3.6 g/dL 3.2 - 5.5 10/03 [facility]. Studies /2017 [facility] [place] [facility] Alanine 135 IU/L 10 - 60 10/03 [facility]. Studies Aminotransfe /2017 [facility] rase [place] (ALT/SGPT) Laboratory Procalcitoni 0.44 ng/mL 10/03 [facility]. Studies n [facility] [place] [facility] B-Type 20 pg/ml 10/03 [facility]. Studies Natriuretic /2017 [facility] Peptide [place] [facility] Lipase 22 U/L 22 - 51 10/[address] [facility] Studies [facility] [place] [facility] Rapid null 10/03 [facility] [address] Studies Troponin I [facility] [place] [facility] Lactic Acid 8.6 mg/dL 4.5 - 19.8 10/[address] [facility] Studies Level [facility] [place] Microbiolo Morganella Morganella 09/[address] [facility] [facility] Studies Morganii Morganii [facility] [place] [facility] Proteus Proteus 09/07 [facility] [address] gy Studies Mirabilis Mirabilis [facility] [place] [facility] Activated 32.2 24.3 - 09/01 [facility] Studies Partial SECONDS 36.9 [facility] Thromboplast [place] Time Vital Signs Vital Sign Value Date Comments Source Temperature Oral (F) 97.2 F 11/19/2017 [facility] Systolic (mm Hg) 127 11/19/2017 [facility] Diastolic (mm Hg) 85 11/19/2017 [facility] Heart Rate 81 11/19/2017 [facility] Respitory Rate 18 11/19/2017 [facility] Heart Rate 90 11/19/2017 [facility] Systolic (mm Hg) 106 11/19/2017 [facility] Diastolic (mm Hg) 71 11/19/2017 [facility] Respitory Rate 18 11/19/2017 [facility] Temperature Oral (F) 98.1 F 11/19/2017 [facility] Respitory Rate 18 11/19/2017 [facility] Systolic (mm Hg) 168 11/19/2017 [facility] Diastolic (mm Hg) 107 11/19/2017 [facility] Heart Rate 87 11/19/2017 [facility] Temperature Oral (F) 98.1 F 11/19/2017 [facility] Weight 127.027 11/18/2017 [facility] Weight 127.027 11/17/2017 [facility] Weight 127.027 11/15/2017 [facility] BMI Calculated 48.16 11/15/2017 [facility] Height 162.56 cm 11/15/2017 [facility] Height 149.86 cm 11/14/2017 [facility] BMI Calculated 56.67 11/14/2017 [facility] Heart Rate 85 10/07/[address] [facility] Systolic (mm Hg) 145 10/07/[address] [facility] [place] Diastolic (mm Hg) 66 10/07/[address] [facility] [place] Temperature Oral (F) 97.7 F 10/07/[address] [facility] [place] Respitory Rate 16 10/07/[address] [facility] [place] Height 59 10/06/[address] [facility] [place] Weight 280 10/06/[address] [facility] [place] Encounters Location Location Encounter Encounter Reason Attending ADM DC Status Source Details Type Number For Provider Date Date Visit [facility] [id number] 07/11 07/[address] [facility]2016 [facility] [facility] [id number] 08/08 08/14 [facility] [place] [facility] [facility] Departed [id number] 09/01 09/[address] [facility] Emergency /2017 [facility] [place] [facility] [facility] [id number] 09/10 09/11 [facility] [place] [facility] [facility] Registered [id number] 09/[address] [facility]2017 [facility] [place] [facility] [facility] Dis[facility] [id number] 10/04 10/[facility] Inpatient [facility]2017 [facility] [place] [facility] Inpatient [id number] [place] 11/14 11/19 [facility] /2017 [facility] Procedures Procedure Code Date Perfomer Comments Source Chest Single View [id number] [facility] [place] - [facility] [place] Gram Stain [id number] [facility] - [facility] [place] Culture & Sensitivity [id number] [facility] [place] - 8 [place] Anaerobic Blood [id number] [facility] [place] - Culture 8 [place] Aerobic Blood Culture [id number] [facility] [place] - 8 [place] Chest Single View [id number] [facility] - 8 [place] Gram Stain [id number] [facility] - 8 [place] Culture & Sensitivity [id number] [facility] - [facility] [place] Chest Single View [id number] [facility] - 8 [place] Cholecystectomy [id number] [facility] Shunt of cerebral [id number] [facility] ventricle to [facility] extracranial site
--- OUTSIDE RECORDS SUMMARY | 2018-08-06 14:24 | XMS REPORT ---
[...] ulcer stage Problem Paraplegia G82.20 Active Assessment CREATIVE WRITING PROFESSOR (ventriculoperitoneal) shunt Z98.2 Active status Problem Nausea [...] headache, R51 Active unspecified headache type Problem CREATIVE WRITING PROFESSOR (ventriculoperitoneal) shunt Z98.2 Active status Problem Episodic tension-type headache, not G44.219 Active intractable Problem Lumbar spina bifida with Q05.2 Active hydrocephalus Problem Foot ulcer L97.509 Active Problem Nicotine dependence F17.200 Active Problem Dependence on wheelchair Z99.3 Active Medications Medication Code Code Instructions Start End Status Dosage System Date Date Macrobid [facility] 13850445515 100 MG Orally Active 1 capsule every 12 hrs with food Tylenol with [facility] 81101625142 300-60 MG Active 1 tablet as Codeine #4 Orally every 6 needed hrs Pantoprazole ND 25551190062 40 MG Orally Active 1 tablet Sodium Once a day Citalopram [facility] 69124184209 10 MG Orally Active 1 tablet Hydrobromide Once a day Collagenase [facility] [address]-89 250 UNIT/GM Active 1 application Externally to affected Once a day area Seroquel [facility] 31071593024 25 MG Orally Active 1 tablet Once a day at bedtime Results No Known Results Summary Purpose eClinicalWorks Submission
--- OUTSIDE RECORDS SUMMARY | 2018-08-06 14:24 | XMS REPORT ---
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
--- OUTSIDE RECORDS SUMMARY | 2018-08-06 14:24 | XMS REPORT ---
[...] tension-type headache, not G44.219 Active intractable Assessment SERVICE ORDER TAKER (ventriculoperitoneal) shunt Z98.2 Active status Assessment Ulcer [...] vomiting not specified, unspecified vomiting type Problem SERVICE ORDER TAKER (ventriculoperitoneal) shunt Z98.2 Active status Medications Medication Code Code Instructions Start End Status Dosage System Date Date Tylenol with [facility] 10273855869 300-60 MG Active 1 tablet as Codeine #4 Orally every 6 needed hrs Macrobid [facility] 87706750170 100 MG Orally Active 1 capsule every 12 hrs with food Pantoprazole ND 16677060274 40 MG Orally Active 1 tablet Sodium Once a day Collagenase [facility] [address]-55 250 UNIT/GM Active 1 application Externally to affected Once a day area Results No Known Results Summary Purpose eClinicalWorks Submission
--- OUTSIDE RECORDS SUMMARY | 2018-08-06 14:24 | XMS REPORT ---
[...] hydrocephalus Problem Bipolar depression F31.30 Active Assessment SOURCING ASSISTANT (ventriculoperitoneal) shunt Z98.2 Active status Problem Depression [...] spina bifida with Q05.2 Active hydrocephalus Problem SOURCING ASSISTANT (ventriculoperitoneal) shunt Z98.2 Active status Problem Nicotine dependence F17.200 Active Medications Medication Code Code Instructions Start End Status Dosage System Date Date Collagenase [facility] [address]-76 250 UNIT/GM Active 1 application Externally to affected Once a day area Macrobid [facility] 10784850133 100 MG Orally Active 1 capsule every 12 hrs with food Tylenol with [facility] 43580753613 300-60 MG Active 1 tablet as Codeine #4 Orally every 6 needed hrs Citalopram [facility] 54049208944 10 MG Orally January Active 1 tablet Hydrobromide Once a day 2017 Pantoprazole [facility] 63099025439 40 MG Orally Active 1 tablet Sodium Once a day Seroquel [facility] 91000497743 25 MG Orally January Active 1 tablet Once a day at 16, bedtime 2017 Results No Known Results Summary Purpose eClinicalWorks Submission
--- OUTSIDE RECORDS SUMMARY | 2018-08-06 14:24 | XMS REPORT ---
:1985 Author Organization [employer] Care Team Providers Name Role Phone Gamble, [...] headache, R51 Active unspecified headache type Problem CHEMISTS (ventriculoperitoneal) shunt Z98.2 Active status Medications No Known Medications Results No Known Results Summary Purpose [employer] Submission
--- OUTSIDE RECORDS SUMMARY | 2018-08-06 14:24 | XMS REPORT ---
:1985 [facility] Address [address] [place] [address] [address]. [address] [place] [address] Care Team Providers Name Role Phone JAQUELIN GENAO Unavailable Unavailable Problems This patient has no known problems. Allergies, Adverse Reactions, Alerts This patient has no known allergies or adverse reactions. Medications This patient has no known medications. Results Test Description Test Time Test Comments Text Results Atomic Results Result Comments BLOOD CULTURE 2016-12-28 16:22:00 Test Item Value Reference Range Comments CULTURE (BEAKER) (test lufa=6580) No growth in 5 days BLOOD [id number] 16:22:00 Test Item Value Reference Range Comments CULTURE (BEAKER) (test svuu=4549) No growth in 5 days (MANUAL DIFFERENTIAL)2016-12-25 22:29:00 Test Item Value Reference Range Comments TOTAL COUNTED (BEAKER) (test gvll=5968) WBC MORPHOLOGY (BEAKER) (test jbgc=090) Normal PLT MORPHOLOGY (BEAKER) (test venb=399) Normal RBC MORPHOLOGY (BEAKER) (test hcpl=172) Normal CBC W/PLT COUNT & AUTO [id number] 22:28:00 Test Item Value Reference Range Comments WHITE BLOOD CELL COUNT (BEAKER) (test ptmu=171) 7.3 K/ L 4.0-10.0 RED BLOOD CELL COUNT (BEAKER) (test kgbg=504) 5.09 M/ L 4.20-5.80 HEMOGLOBIN (BEAKER) (test ggnq=800) 13.0 GM/DL 13.0-16.8 HEMATOCRIT (BEAKER) (test kejc=570) 42.3 % 40.0-50.0 MEAN CORPUSCULAR VOLUME (BEAKER) (test uxhu=940) 83.0 fL 82.0-98.0 MEAN CORPUSCULAR HEMOGLOBIN (BEAKER) (test 25.6 pg 27.0-33.0 rwkd=646) MEAN CORPUSCULAR HEMOGLOBIN CONC (BEAKER) (test 30.8 GM/DL 32.0-36.0 jyaw=520) RED CELL DISTRIBUTION WIDTH (BEAKER) (test 18.0 % 10.3-14.2 vauo=660) PLATELET COUNT (BEAKER) (test pyrz=327) 331 K/CU MM 150-430 MEAN PLATELET VOLUME (BEAKER) (test hhex=091) 8.5 fL 6.5-10.5 NUCLEATED RED BLOOD CELLS (BEAKER) (test 0 /100 WBC 0-0 winz=976) NEUTROPHILS RELATIVE PERCENT (BEAKER) (test 65 % obrb=645) LYMPHOCYTES RELATIVE PERCENT (BEAKER) (test 23 % wxqc=998) MONOCYTES RELATIVE PERCENT (BEAKER) (test 8 % eezn=798) EOSINOPHILS RELATIVE PERCENT (BEAKER) (test 3 % djdx=394) BASOPHILS RELATIVE PERCENT (BEAKER) (test 1 % inla=703) NEUTROPHILS ABSOLUTE COUNT (BEAKER) (test 4.75 K/ L 1.80-8.00 yntk=558) LYMPHOCYTES ABSOLUTE COUNT (BEAKER) (test 1.68 K/ L 1.48-4.50 ucqu=006) MONOCYTES ABSOLUTE COUNT (BEAKER) (test 0.55 K/ L 0.00-1.30 usep=702) EOSINOPHILS ABSOLUTE COUNT (BEAKER) (test 0.24 K/ L 0.00-0.50 ldlk=712) BASOPHILS ABSOLUTE COUNT (BEAKER) (test 0.05 K/ L 0.00-0.20 slxw=476) [id number] METABOLIC [id number] 11:11:00 Test Item Value Reference Range Comments SODIUM (BEAKER) (test 138 meq/L 136-145 uahu=422) POTASSIUM (BEAKER) (test 4.0 meq/L 3.5-5.1 rkty=053) CHLORIDE (BEAKER) (test 108 meq/L 98-107 melw=529) CO2 (BEAKER) (test 23 meq/L 22-29 ecfs=428) BLOOD UREA NITROGEN 11 mg/dL 7-21 (BEAKER) (test auln=101) CREATININE (BEAKER) (test 0.74 mg/dL 0.57-1.25 xsav=936) GLUCOSE RANDOM (BEAKER) 124 mg/dL 70-105 (test ymva=013) CALCIUM (BEAKER) (test 8.9 mg/dL 8.4-10.2 wqzh=340) EGFR (BEAKER) (test 150 mL/min/1.73 sq m ESTIMATED GFR IS NOT aefq=9270) ACCURATE CREATININE CLEARANCE IN PREDICTING GLOMERULAR FILTRATION RATE. ESTIMATED GFR IS NOT APPLICABLE FOR DIALYSIS PATIENTS. URINE [id number] 09:56:00 Test Item Value Reference Range Comments CULTURE (BEAKER) (test kzhv=3916) <10,000 col/mL skin marilee COMPREHENSIVE METABOLIC [id number] 08:49:00 Test Item Value Reference Range Comments TOTAL PROTEIN (BEAKER) 7.3 gm/dL 6.0-8.3 (test ryom=320) ALBUMIN (BEAKER) (test 3.3 g/dL 3.5-5.0 shuw=4748) ALKALINE PHOSPHATASE 89 U/L 40-150 (BEAKER) (test idva=920) BILIRUBIN TOTAL (BEAKER) 1.4 mg/dL 0.2-1.2 (test rrnm=685) SODIUM (BEAKER) (test 137 meq/L 136-145 gdgu=805) POTASSIUM (BEAKER) (test 3.7 meq/L 3.5-5.1 gtlt=280) CHLORIDE (BEAKER) (test 108 meq/L 98-107 ptks=516) CO2 (BEAKER) (test 17 meq/L 22-29 ybuj=853) BLOOD UREA NITROGEN 12 mg/dL 7-21 (BEAKER) (test soyi=696) CREATININE (BEAKER) (test 0.78 mg/dL 0.57-1.25 wpts=164) GLUCOSE RANDOM (BEAKER) 119 mg/dL 70-105 (test chae=530) CALCIUM (BEAKER) (test 8.6 mg/dL 8.4-10.2 gcuu=269) AST (SGOT) (BEAKER) (test 13 U/L 5-34 jqpg=724) ALT (SGPT) (BEAKER) (test 28 U/L 6-55 qdmr=677) EGFR (BEAKER) (test 141 mL/min/1.73 sq ESTIMATED GFR IS NOT uiny=1402) m ACCURATE CREATININE CLEARANCE IN PREDICTING GLOMERULAR FILTRATION RATE. ESTIMATED GFR IS NOT APPLICABLE FOR DIALYSIS PATIENTS. CBC W/PLT COUNT & AUTO [id number] 08:46:00 Test Item Value Reference Range Comments WHITE BLOOD CELL COUNT (BEAKER) (test przm=937) 9.4 K/ L 4.0-10.0 RED BLOOD CELL COUNT (BEAKER) (test nhyk=500) 4.79 M/ L 4.20-5.80 HEMOGLOBIN (BEAKER) (test lzks=308) 12.8 GM/DL 13.0-16.8 HEMATOCRIT (BEAKER) (test nmjc=505) 40.0 % 40.0-50.0 MEAN CORPUSCULAR VOLUME (BEAKER) (test mxgw=098) 83.4 fL 82.0-98.0 MEAN CORPUSCULAR HEMOGLOBIN (BEAKER) (test 26.7 pg 27.0-33.0 pwjh=850) MEAN CORPUSCULAR HEMOGLOBIN CONC (BEAKER) (test 32.0 GM/DL 32.0-36.0 rvgc=168) RED CELL DISTRIBUTION WIDTH (BEAKER) (test 18.2 % 10.3-14.2 yiqa=268) PLATELET COUNT (BEAKER) (test ewtd=894) 313 K/CU MM 150-430 MEAN PLATELET VOLUME (BEAKER) (test oeae=829) 8.6 fL 6.5-10.5 NUCLEATED RED BLOOD CELLS (BEAKER) (test 0 /100 WBC 0-0 ifdy=373) NEUTROPHILS RELATIVE PERCENT (BEAKER) (test 70 % jmyq=133) LYMPHOCYTES RELATIVE PERCENT (BEAKER) (test 16 % trdx=477) MONOCYTES RELATIVE PERCENT (BEAKER) (test 12 % iezj=858) EOSINOPHILS RELATIVE PERCENT (BEAKER) (test 1 % quzs=192) BASOPHILS RELATIVE PERCENT (BEAKER) (test 1 % kpnu=176) NEUTROPHILS ABSOLUTE COUNT (BEAKER) (test 6.54 K/ L 1.80-8.00 imsc=525) LYMPHOCYTES ABSOLUTE COUNT (BEAKER) (test 1.50 K/ L 1.48-4.50 aobl=701) MONOCYTES ABSOLUTE COUNT (BEAKER) (test 1.13 K/ L 0.00-1.30 tbpi=671) EOSINOPHILS ABSOLUTE COUNT (BEAKER) (test 0.13 K/ L 0.00-0.50 uoxr=593) BASOPHILS ABSOLUTE COUNT (BEAKER) (test 0.06 K/ L 0.00-0.20 zryn=867) 0.00URINALYSIS W/ [id number] 20:36:00 Test Item Value Reference Range Comments COLOR (BEAKER) (test oecb=963) Yellow CLARITY (BEAKER) (test hwvl=445) Hazy SPECIFIC GRAVITY UA (BEAKER) (test xiup=510) 1.012 1.001-1.035 PH UA (BEAKER) (test axgo=291) 5.5 5.0-8.0 PROTEIN UA (BEAKER) (test tuwj=239) 100 mg/dL Negative GLUCOSE UA (BEAKER) (test udbx=154) Negative Negative KETONES UA (BEAKER) (test fnfe=889) Negative Negative BILIRUBIN UA (BEAKER) (test jlkh=510) Negative Negative BLOOD UA (BEAKER) (test uulo=151) Moderate Negative NITRITE UA (BEAKER) (test bssk=956) Negative Negative LEUKOCYTE ESTERASE UA (BEAKER) (test irsg=112) Large Negative UROBILINOGEN UA (BEAKER) (test ueua=559) 3.0 mg/dL 0.2-1.0 RBC UA (BEAKER) (test pjov=341) 19 /HPF WBC UA (BEAKER) (test ixio=607) 182 /HPF SOURCE(BEAKER) (test orcy=2035) BASIC METABOLIC [id number] 17:00:00 Test Item Value Reference Range Comments SODIUM (BEAKER) (test 140 meq/L 136-145 jgkc=367) POTASSIUM (BEAKER) (test 3.7 meq/L 3.5-5.1 syqs=911) CHLORIDE (BEAKER) (test 112 meq/L 98-107 zsbt=877) CO2 (BEAKER) (test 17 meq/L 22-29 kskv=154) BLOOD UREA NITROGEN 23 mg/dL 7-21 (BEAKER) (test vkiv=182) CREATININE (BEAKER) (test 1.00 mg/dL 0.57-1.25 dpui=487) GLUCOSE RANDOM (BEAKER) 102 mg/dL 70-105 (test pgot=096) CALCIUM (BEAKER) (test 8.7 mg/dL 8.4-10.2 ivdj=517) EGFR (BEAKER) (test 106 mL/min/1.73 sq m ESTIMATED GFR IS NOT ecwn=6094) ACCURATE CREATININE CLEARANCE IN PREDICTING GLOMERULAR FILTRATION RATE. ESTIMATED GFR IS NOT APPLICABLE FOR DIALYSIS PATIENTS. Specimen slightly ictericCBC W/PLT COUNT & AUTO [id number] 12:18 :00 Test Item Value Reference Range Comments WHITE BLOOD CELL COUNT (BEAKER) (test mkda=161) 16.4 K/ L 4.0-10.0 RED BLOOD CELL COUNT (BEAKER) (test cwon=582) 5.22 M/ L 4.20-5.80 HEMOGLOBIN (BEAKER) (test onri=456) 14.4 GM/DL 13.0-16.8 HEMATOCRIT (BEAKER) (test olzz=609) 42.9 % 40.0-50.0 MEAN CORPUSCULAR VOLUME (BEAKER) (test kydj=838) 82.2 fL 82.0-98.0 MEAN CORPUSCULAR HEMOGLOBIN (BEAKER) (test 27.5 pg 27.0-33.0 auch=462) MEAN CORPUSCULAR HEMOGLOBIN CONC (BEAKER) (test 33.5 GM/DL 32.0-36.0 suyt=554) RED CELL DISTRIBUTION WIDTH (BEAKER) (test 16.2 % 10.3-14.2 awwe=505) PLATELET COUNT (BEAKER) (test xqdp=388) 329 K/CU MM 150-430 MEAN PLATELET VOLUME (BEAKER) (test utyf=132) 8.2 fL 6.5-10.5 NUCLEATED RED BLOOD CELLS (BEAKER) (test 0 /100 WBC 0-0 kpms=540) NEUTROPHILS RELATIVE PERCENT (BEAKER) (test 83 % vwcq=778) LYMPHOCYTES RELATIVE PERCENT (BEAKER) (test 7 % kboj=830) MONOCYTES RELATIVE PERCENT (BEAKER) (test 9 % kwck=400) EOSINOPHILS RELATIVE PERCENT (BEAKER) (test 0 % xsuy=729) BASOPHILS RELATIVE PERCENT (BEAKER) (test 0 % pcuv=524) NEUTROPHILS ABSOLUTE COUNT (BEAKER) (test 1.62 K/ L 1.80-8.00 crxp=703) LYMPHOCYTES ABSOLUTE COUNT (BEAKER) (test 1.15 K/ L 1.48-4.50 rzvg=435) MONOCYTES ABSOLUTE COUNT (BEAKER) (test 1.56 K/ L 0.00-1.30 xift=949) EOSINOPHILS ABSOLUTE COUNT (BEAKER) (test 0.01 K/ L 0.00-0.50 jlyl=295) BASOPHILS ABSOLUTE COUNT (BEAKER) (test 0.02 K/ L 0.00-0.20 jnak=219) (MANUAL DIFFERENTIAL)2016-12-23 12:18:00 Test Item Value Reference Range Comments TOTAL COUNTED (BEAKER) (test vxis=7810) WBC MORPHOLOGY (BEAKER) (test zxzm=879) Normal PLT MORPHOLOGY (BEAKER) (test zcvo=057) Normal RBC MORPHOLOGY (BEAKER) (test mzqn=791) Normal
[2018-08-06] MEDS ORDERED: PROMETHAZINE 25 MG TABLET ONE (15:16)
[2018-08-06] MEDS ORDERED: NA CHLORIDE 0.9% 100 ML IV ONE (15:16)
[2018-08-06] MEDS ORDERED: MEPERIDINE HCL 25 MG/0.5 ML ONE (15:16)
[2018-08-06] MEDS ORDERED: PROMETHAZINE 25 MG/ML VIAL ONE (15:16)
[2018-08-06 15:18] LABS: Absolute Lymphocytes (CBC) 1.3 K/uL (0.7-4.9); Absolute Neutrophil 5.9 K/uL (1.8-8.0); Basophils % 0.5 % (0-1.3); Eosinophils % 0.9 % (0-4.4); Hematocrit 46.6 % (39.6-49.0); Lymphocytes % 15.7 % (15.3-44.8); MPV 8.4 fL (7.6-11.3); Monocytes % 12.3 % (3.3-12.3); RBC Red Blood Cell Count 5.61 M/uL (4.33-5.43)
--- NOTE | 2018-08-06 15:41 | RAD REPORT ---
EXAM DESCRIPTION: RAD - Chest Single View - 08/06/2018 3:29 pm CLINICAL HISTORY: Acute onset lower chest pain, epigastric pain, history of long-standing PHARMACOVIGILANCE SCIENTIST shunt COMPARISON: Chest film April 24, 2018 TECHNIQUE: AP portable chest image was obtained 1514 hour . FINDINGS: No focal lung parenchymal process. Lung markings are prominent but stable. Heart and vascu lature are normal. No measurable pleural effusion and no pneumothorax. No acute bony abnormality seen . No acute aortic findings suspected. PHARMACOVIGILANCE SCIENTIST shunt tubing overlies the chest. IMPRESSION: No acute cardiopulmonary process. No significant change from comparison.
[2018-08-06 15:49] LABS: ALT/SGPT 115 U/L (12-78); AST/SGOT 39 U/L (15-37); Albumin 3.1 g/dL (3.4-5.0); Alkaline Phosphatase 124 U/L (45-117); BUN Blood Urea Nitrogen 16 mg/dL (7-18); Bicarbonate 25 mmol/L (21-32); Bilirubin Direct 0.1 mg/dL (0-0.2); Bilirubin Total 0.3 mg/dL (0.2-1.0); Glucose Level 88 mg/dL (74-106); Lipase 82 U/L (73-393); Potassium 4.3 mmol/L (3.5-5.1); Protein, Total 8.3 g/dL (6.4-8.2); Sodium Level 139 mmol/L (136-145); Troponin (Emerg Dept Use Only) < 0.02 ng/mL (0.0-0.045)
--- NOTE | 2018-08-06 16:20 | RAD REPORT ---
EXAM DESCRIPTION: CT - Abdomen Pelvis W Contrast - 08/06/2018 4:10 pm CLINICAL HISTORY: Abdominal pain, epigastric pain, history of GERD, FIELD ENUMERATOR shunt COMPARISON: CT study February 2018 and April 2016 TECHNIQUE: Biphasic, helical CT imaging of the abdomen and pelvis was performed following 100 ml non -ionic IV contrast. Oral contrast was given. All CT scans are performed using dose optimization technique as appropriate and may include automated exposure control or mA/KV adjustment according to patient size. FINDINGS: No suspicious findings in the lung bases. The liver, spleen, and pancreas show no suspicious findings. Gallbladder is absent. Biliary tree with in normal limits. Symmetric renal function is seen with no hydronephrosis or suspicious renal mass. No pyelonephritis o r acute parenchymal process. Slight motion degradation limits renal parenchymal assessment. Concerns for pyelonephritis or acute infectious process can be addressed with UA findings. No adrenal abnor malities. Urinary bladder is contracted around a suprapubic catheter. Bladder pacheco cannot be assesse d with this degree contraction. No dilated bowel loops or bowel wall thickening. Moderate stool volume in the rectum and sigmoid colo n. No free air, free fluid or inflammatory stranding. No new mass or bulky lymphadenopathy. Bilatera l external iliac lymph nodes are stable. No suspicious bony findings. No ascites. Minimal stranding in the left-side lower gluteal fat not substantially different from prior imaging. Scrotal and lower perineal soft tissues incompletely visualized. IMPRESSION: CT abdomen and pelvis imaging shows no suspicious finding to explain acute epigastric pa in. Nonacute findings detailed in the body of the report.
--- NOTE | 2018-08-06 16:35 | ER ---
Nurse's Notes [facility] Name: Roland Feldman Jr Age: 33 yrs Sex: Male : 1985 Arrival Date: 08/06/2018 Time: 14:19 Bed 5 Private MD: Diagnosis: Unspecified abdominal pain Presentation: 08/06 14:23 Presenting complaint: EMS states: pt c/o sudden onset epigastric pain, sharp, rated jl7 10/10. 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 Transition of care: patient was not received from another setting of care. Onset of symptoms was August 06, 2018 at 14:00. Risk Assessment: Do you want to hurt yourself or someone else? Patient reports no desire to harm self or others. Initial Sepsis Screen: Does the patient meet any 2 criteria? No. Patient's initial sepsis screen is negative. Does the patient have a suspected source of infection? No. Patient's initial sepsis screen is negative. Care prior to arrival: IV initiated. 20 GA, in the right antecubital area. 14:23 Method Of Arrival: EMS: [facility] jl7 14:23 Acuity: YUKI 3 jl7 Triage Assessment: 14:27 General: Appears in no apparent distress. uncomfortable, Behavior is calm, cooperative, jl7 appropriate for age. Pain: Complains of pain in epigastric area Pain does not radiate. Pain currently is 10 out of 10 on a pain scale. Quality of pain is described as sharp, Pain began 30 min ago. Is continuous. EENT: No signs and/or symptoms were reported regarding the EENT system. Neuro: Level of Consciousness is awake, alert, obeys commands, Oriented to person, place, time, situation. Cardiovascular: Patient's skin is warm and dry. Respiratory: Airway is patent Respiratory effort is even, unlabored, Respiratory pattern is regular, symmetrical. GI: Reports nausea, vomiting, Patient currently denies diarrhea. : No signs and/or symptoms were reported regarding the genitourinary system. Alcant[place] in place to gravity drainage. Derm: No signs and/or symptoms reported regarding the dermatologic system. Musculoskeletal: No signs and/or symptoms reported regarding the musculoskeletal system. Historical: - Allergies: 14:27 Amoxicillin; jl7 14:27 Bactrim; jl7 14:27 Ciprofloxacin; jl7 14:27 CLAVULANIC ACID; jl7 14:27 Doxycycline; jl7 14:27 Levofloxacin; jl7 14:27 Morphine; jl7 14:27 Toradol; jl7 14:27 TRIMETHOPRIM; jl7 14:27 Vancomycin; jl7 14:27 Zofran; jl7 - PMHx: 14:27 Asthma; Cerebral Palsy; cluster headaches; decubitus ulcers on feet; GERD; jl7 Hydrocephalus; Hypertension; spina bifida; - PSHx: 14:27 SHUNT REVISION 2002; AMPUTATION OF LOWER LIMB 2001; jl7 - Immunization history:: Adult Immunizations up to date. - Social history:: Smoking status: unknown. - Ebola Screening: : No symptoms or risks identified at this time. Screenin:32 Abuse screen: Denies threats or abuse. Denies injuries from another. Nutritional jl7 screening: No deficits noted. Tuberculosis screening: No symptoms or risk factors identified. Fall Risk IV access (20 points). Ambulatory Aid- None/Bed Rest/Nurse Assist (0 pts). Total Smith Fall Scale indicates No Risk (0-24 pts). Assessment: 14:32 General: See triage assessment. jl7 15:30 Reassessment: Patient appears in no apparent distress at this time. Patient and/or [facility] family updated on plan of care and expected duration. Pain level reassessed. Patient is alert, oriented x 3, equal unlabored respirations, skin warm/dry/pink. 16:28 Reassessment: Patient appears in no apparent distress at this time. Patient and/or jl7 family updated on plan of care and expected duration. Pain level reassessed. Patient is alert, oriented x 3, equal unlabored respirations, skin warm/dry/pink. 17:17 Reassessment: Report given to NAIF Kwon at [facility], Cher reports she will call corrine back with a time frame for transportation. 17:58 Reassessment: [facility] reports pt will be picked up for transportation by 1830. [facility] Vital Signs: 14:27 BP 128 / 90; Pulse 97; Resp 16 S; Temp 98(O); Pulse Ox 92% on R/A; Pain 10/10; jl7 15:19 BP 116 / 88; Pulse 84; Resp 17; Pulse Ox 93% on R/A; tw2 17:17 BP 119 / 89; Pulse 86; Resp 16 S; Pulse Ox 96% on R/A; jl7 ED Course: 14:19 Patient arrived in ED. iw 14:23 Marni Koenig, NAIF is Primary Nurse. jl7 14:25 Triage completed. jl7 14:26 Dustin Horton NP is PHCP. pm1 14:26 Rah Dominguez MD is Attending Physician. pm1 14:27 Arm band placed on right wrist. jl7 14:32 Patient has correct armband on for positive identification. Bed in low position. Call jl7 light in reach. Side rails up X 1. Pulse ox on. NIBP on. Warm blanket given. 14:32 Maintain EMS IV. Dressing intact. Site clean \T\ dry. Gauge \T\ site: 20 right AC. jl 7 14:39 EKG done, by medical service technician. reviewed by Dustin Horton NP. at1 14:41 Radiology exam delayed due to lab results not completed at this time. (BUN/Creatinine). vm2 15:00 IV discontinued, intact, bleeding controlled, No redness/swelling at site. Pressure jl7 dressing applied. 15:00 Initial lab(s) drawn, by ks, sent to lab. Inserted saline lock: 24 gauge in left jl7 forearm, using aseptic technique. Blood collected. 15:34 XRAY Chest (1 view) In Process Unspecified. EDMS 15:38 Radiology exam delayed due to lab results not completed at this time. (BUN/Creatinine). vm2 15:47 Radiology exam delayed due to lab results not completed at this time. (BUN/Creatinine). vm2 15:[address] via stretcher. vm2 16:08 CT completed. Patient moved back from CT. vm2 16:12 CT Abd/Pelvis - W/Contrast: IV contrast only In Process Unspecified. EDMS 16:35 Alban Samano MD is Referral Physician. pm1 18:49 No provider procedures requiring assistance completed. IV discontinued, intact, jl7 bleeding controlled, No redness/swelling at site. Pressure dressing applied. Administered Medications: 15:40 Drug: Demerol 25 mg Route: IVP; Site: left forearm; jl7 16:35 Follow up: Response: No adverse reaction; Pain is unchanged, physician notified jl7 15:43 Drug: Phenergan 12.5 mg Route: IVP; Site: left forearm; jl7 16:00 Follow up: Response: No adverse reaction; Nausea is decreased jl7 16:40 Drug: GI Cocktail without - (Maalox Suspension 30 ml, Lidocaine Liquid 2 % 15 jl7 ml) Route: PO; 17:10 Follow up: Response: No adverse reaction; Pain is decreased jl7 16:40 Drug: Pepcid 20 mg Route: PO; jl7 17:30 Follow up: Response: No adverse reaction; Pain is decreased jl7 17:10 Not Given (Other Intervention Used): Pepcid 20 mg IVP once jl7 Outcome: 16:34 Discharge ordered by MD. pm1 18:49 Discharged to [facility]. Report called to NAIF Kwon jl7 18:49 Condition: stable 18:49 Discharge instructions given to patient, [facility], Instructed on discharge instructions, follow up and referral plans. Demonstrated understanding of instructions, follow-up care. 18:50 Patient left the ED. jl7 Signatures: Dispatcher [employer] EDMS Kathy Hoyos RN RN iw Sierra Price, air tank assembler EKG Tat1 Dustin Horton, [place] [employer] ATTENDANT pm1 Evangelina Villa RN RN tw2 Marni Koenig RN RN jl7 Betty Marques [facility] Corrections: (The following items were deleted from the chart) 16:24 14:32 Maintain EMS IV. Dressing intact. Site clean \T\ dry. Gauge \T\ site: 20 right AC. jl7jl 7
--- NOTE | 2018-08-06 16:35 | EDPHYS ---
Physician Documentation [facility] Name: Roland Feldman Jr Age: 33 yrs Sex: Male : 1985 Arrival Date: 08/06/2018 Time: 14:19 Bed 5 Private MD: ED Physician Rah Dominguez HPI: 08/06 15:00 This 33 yrs old Black Male presents to ER via EMS with complaints of Epigastric Pain. pm1 15:00 The patient presents with abdominal pain in the epigastric area. Onset: The pm1 symptoms/episode began/occurred 3 day(s) ago. The symptoms do not radiate. 15:00 Associated signs and symptoms: Pertinent negatives: nausea, vomiting, and diarrhea, pm1 chest pain, dysuria, fever, shortness of breath. The symptoms are described as sharp. Modifying factors: The symptoms are alleviated by nothing, the symptoms are aggravated by nothing. Severity of pain: in the emergency department the pain is actually worse. The patient has experienced similar episodes in the past, multiple times. The patient has not recently seen a physician. Historical: - Allergies: 14:27 Amoxicillin; jl7 14:27 Bactrim; jl7 14:27 Ciprofloxacin; jl7 14:27 CLAVULANIC ACID; jl7 14:27 Doxycycline; jl7 14:27 Levofloxacin; jl7 14:27 Morphine; jl7 14:27 Toradol; jl7 14:27 TRIMETHOPRIM; jl7 14:27 Vancomycin; jl7 14:27 Zofran; jl7 - PMHx: 14:27 Asthma; Cerebral Palsy; cluster headaches; decubitus ulcers on feet; GERD; jl7 Hydrocephalus; Hypertension; spina bifida; - PSHx: 14:27 SHUNT REVISION 2002; AMPUTATION OF LOWER LIMB 2001; jl7 - Immunization history:: Adult Immunizations up to date. - Social history:: Smoking status: unknown. - Ebola Screening: : No symptoms or risks identified at this time. ROS: 15:00 Constitutional: Negative for fever, chills, and weight loss, Eyes: Negative for injury, pm1 pain, redness, and discharge, ENT: Negative for injury, pain, and discharge, Neck: Negative for injury, pain, and swelling, Cardiovascular: Negative for chest pain, palpitations, and edema, Respiratory: Negative for shortness of breath, cough, wheezing, and pleuritic chest pain. 15:00 Back: Negative for injury and pain, : Negative for injury, bleeding, discharge, and swelling, MS/Extremity: Negative for injury and deformity, Skin: Negative for injury, rash, and discoloration. 15:00 Neuro: Negative for headache, weakness, numbness, tingling, and seizure. 15:00 Abdomen/GI: Positive for abdominal pain, Negative for nausea, vomiting, and diarrhea. Exam: 15:00 Constitutional: This is a well developed, well nourished patient who is awake, alert, pm1 and in no acute distress. Head/Face: Normocephalic, atraumatic. Eyes: Pupils equal round and reactive to light, extra-ocular motions intact. Lids and lashes normal. Conjunctiva and sclera are non-icteric and not injected. Cornea within normal limits. Periorbital areas with no swelling, redness, or edema. ENT: Nares patent. No nasal discharge, no septal abnormalities noted. Tympanic membranes are normal and external auditory canals are clear. Oropharynx with no redness, swelling, or masses, exudates, or evidence of obstruction, uvula midline. Mucous membranes moist. Neck: Trachea midline, no thyromegaly or masses palpated, and no cervical lymphadenopathy. Supple, full range of motion without nuchal rigidity, or vertebral point tenderness. No Meningismus. Chest/axilla: Normal chest wall appearance and motion. Nontender with no deformity. No lesions are appreciated. Cardiovascular: Regular rate and rhythm with a normal S1 and S2. No gallops, murmurs, or rubs. No pulse deficits. Respiratory: Lungs have equal breath sounds bilaterally, clear to auscultation and percussion. No rales, rhonchi or wheezes noted. No increased work of breathing, no retractions or nasal flaring. Abdomen/GI: Soft, non-tender, with normal bowel sounds. No distension or tympany. No guarding or rebound. No evidence of tenderness throughout. Back: No spinal tenderness. No costovertebral tenderness. Full range of motion. Skin: Warm, dry with normal turgor. Normal color with no rashes, no lesions, and no evidence of cellulitis. MS/ Extremity: Pulses equal, no cyanosis. Neurovascular intact. Full, normal range of motion. Vital Signs: 14:27 BP 128 / 90; Pulse 97; Resp 16 S; Temp 98(O); Pulse Ox 92% on R/A; Pain 10/10; jl7 15:19 BP 116 / 88; Pulse 84; Resp 17; Pulse Ox 93% on R/A; tw2 17:17 BP 119 / 89; Pulse 86; Resp 16 S; Pulse Ox 96% on R/A; jl7 MDM: 14:29 Patient medically screened. pm1 16:33 Data reviewed: vital signs. Counseling: I had a detailed discussion with the patient pm1 and/or guardian regarding: the historical points, exam findings, and any diagnostic results supporting the discharge/admit diagnosis, lab results, radiology results, the need for outpatient follow up, to return to the emergency department if symptoms worsen or persist or if there are any questions or concerns that arise at home. 08/06 14:37 Order name: Basic Metabolic Panel; Complete Time: 15:49 pm08/06 14:37 Order name: CBC with Diff; Complete Time: 15:29 pm08/06 14:37 Order name: XRAY Chest (1 view); Complete Time: 15:48 pm08/06 14:37 Order name: LFT's; Complete Time: 15:49 pm08/06 14:37 Order name: Troponin (emerg Dept Use Only); Complete Time: 15:49 pm08/06 14:37 Order name: Lipase; Complete Time: 15:49 pm08/06 14:37 Order name: EKG; Complete Time: 14:38 pm08/06 14:37 Order name: Cardiac monitoring; Complete Time: 15:03 pm08/06 14:37 Order name: CT Abd/Pelvis - W/Contrast: IV contrast only; Complete Time: 16:30 pm08/06 14:37 Order name: EKG - Nurse/Tech; Complete Time: 16:03 pm08/06 14:37 Order name: IV Saline Lock; Complete Time: 15:03 pm08/06 14:37 Order name: Labs collected and sent; Complete Time: 15:03 pm08/06 14:37 Order name: O2 Per Protocol; Complete Time: 15:03 pm08/06 14:37 Order name: O2 Sat Monitoring; Complete Time: 15:02 pm1 Administered Medications: 15:40 Drug: Demerol 25 mg Route: IVP; Site: left forearm; jl7 16:35 Follow up: Response: No adverse reaction; Pain is unchanged, physician notified jl7 15:43 Drug: Phenergan 12.5 mg Route: IVP; Site: left forearm; jl7 16:00 Follow up: Response: No adverse reaction; Nausea is decreased jl7 16:40 Drug: GI Cocktail without - (Maalox Suspension 30 ml, Lidocaine Liquid 2 % 15 jl7 ml) Route: PO; 17:10 Follow up: Response: No adverse reaction; Pain is decreased jl7 16:40 Drug: Pepcid 20 mg Route: PO; jl7 17:30 Follow up: Response: No adverse reaction; Pain is decreased jl7 17:10 Not Given (Other Intervention Used): Pepcid 20 mg IVP once jl7 Disposition: 19:12 Co-signature as Attending Physician, Rah Dominguez MD. rn Disposition: 08/06/18 16:34 Discharged to Home. Impression: Unspecified abdominal pain. - Condition is Stable. - Discharge Instructions: Abdominal Pain, Adult. - Medication Reconciliation Form, Thank You Letter, Antibiotic Education, Prescription Opioid Use form. - Follow up: Emergency Department; When: As needed; Reason: Worsening of condition. Follow up: Private Physician; When: 2 - 3 days; Reason: Recheck today's complaints, Continuance of care, Re-evaluation by your physician. Follow up: Alban Samano MD; When: 2 - 3 days; Reason: Recheck today's complaints, Continuance of care, Re-evaluation by your physician. - Problem is new. - Symptoms have improved. Signatures: Dispatcher [employer] EDMS Rah Dominguez MD MD rn Marinas, Patrick, [employer] CONSULTANT pm1 Marni Koenig RN RN jl7 Corrections: (The following items were deleted from the chart) 16:35 16:34 08/06/2018 16:34 Discharged to Home. Impression: Unspecified abdominal pain. pm1 Condition is Stable. Forms are Medication Reconciliation Form, Thank You Letter, Antibiotic Education, Prescription Opioid Use. Follow up: Emergency Department; When: As needed; Reason: Worsening of condition. Follow up: Private Physician; When: 2 - 3 days; Reason: Recheck today's complaints, Continuance of care, Re-evaluation by your physician. Problem is new. Symptoms have improved. pm1 18:50 16:35 08/06/2018 16:34 Discharged to Home. Impression: Unspecified abdominal pain. jl7 Condition is Stable. Discharge Instructions: Abdominal Pain, Adult. Forms are Medication Reconciliation Form, Thank You Letter, Antibiotic Education, Prescription Opioid Use. Follow up: Emergency Department; When: As needed; Reason: Worsening of condition. Follow up: Private Physician; When: 2 - 3 days; Reason: Recheck today's complaints, Continuance of care, Re-evaluation by your physician. Follow up: Alban Samano; When: 2 - 3 days; Reason: Recheck today's complaints, Continuance of care, Re-evaluation by your physician. Problem is new. Symptoms have improved. pm1
[2018-08-06] MEDS ORDERED: MAGNE/ALUM HYDROXD 30 ML UCUP ONE (16:48)
[2018-08-06] MEDS ORDERED: LIDOCAINE VISCOUS 2% SOLN 15 ML UDC ONE (16:48)
[2018-08-06] MEDS ORDERED: FAMOTIDINE 20 MG TAB ONE (16:49)
[2018-08-06 19:06] VITALS: TEMP 98
[2018-08-06 19:07] VITALS: BP 119/89; O2SAT 96
--- NOTE | 2018-08-06 19:46 | EKG ---
Test Date: 2018-08-06 Test Time: 14:23:36 Drug Worker: YANE MEASUREMENT RESULTS: Intervals: Rate: 95 SD: 144 QRSD: 98 QT: 342 QTc: 429 [place]: P: 67 SD: 144 QRS: 78 T: 15 INTERPRETIVE STATEMENTS: Normal sinus rhythm Nonspecific T wave abnormality Abnormal ECG Compared to ECG 04/24/2018 13:57:05 T-wave abnormality now present Sinus arrhythmia no longer present Electronically Signed On 08-06-18 19:45:30 BUSINESS INTELLIGENCE MANAGER by Justin Heredia
== END 2018-08-06 18:50 | disposition home or self-care (01) ==
LOC: ER 14:18
DX: R10.9 Unspecified abdominal pain (principal); I10 Essential (primary) hypertension; Q05.9 Spina bifida, unspecified; Z88.1 Allergy status to other antibiotic agents; Z88.3 Allergy status to other anti-infective agents; Z88.5 Allergy status to narcotic agent; Z88.8 Allergy status to other drugs, medicaments and biological substances
CPT/HCPCS: 36415; 71045; 74177; 80048; 80076; 83690; 84484; 85025; 93005; 96374; 96375; 99285; J2175; J2550; Q9967

== ENCOUNTER 2018-09-03 12:41 | Emergency (ER) | payer OTHER ==
--- OUTSIDE RECORDS SUMMARY | 2018-09-03 12:43 | XMS REPORT | Clinical Summary ---
:1985 Author Organization [employer] Address [address] [place] [address] Care Team Providers Name Role Phone Rishi [...] Not on file Results Not on fileafter 09/02/2017 Insurance Payer Benefit Plan / Group Subscriber ID Type Phone Address MEDICAID - MEDICAID MEDICAID [employer] xxxxxxxxx Medicaid [facility] C[employer] Non-Contracted Advance Directives For more information, please contact:[facility] Vasquez[place], [place] [phone] Code Status Date Activated Date Inactivated Comments Full Code 12/23/2016 1:36 AM 12/25/2016 8:43 PM This code status was determined by: Patient
--- OUTSIDE RECORDS SUMMARY | 2018-09-03 12:46 | XMS REPORT | Continuity of Care Document ---
:1985 Author Organization Interface Problems Problem Status Onset Classification Date Comments Source Date Reported HEADACHE Active 05/22/[address] SHUNT Active 11/15/[address] ACUTE HEADACHE Active 11/15/[address] Pressure ulcer Active 10/05/19 Finding 10/08/2017 [...] colitis [place] Acute pain Active Problem 11/22/2017 [facility] Asthma Resolved Problem 11/22/2017 [facility] Bronchitis Resolved Problem 11/22/2017 [facility] Cerebral palsy Resolved Problem 11/22/2017 [facility] Headache Active Problem 11/22/2017 [facility] Hydrocephalus Resolved Problem 11/22/2017 [facility] Osteomyelitis Resolved Problem 11/22/2017 [facility] HEADACHE Active [facility] Medications Medication Details Route Status Patient Ordering Order Source Instructions Provider Date Docusate Sodium 100 mg=1 cap, Active [place] 100 MG Oral PO, BID, 0 2017 Medical Capsule Refill(s) [place] Zosyn 0 Refill(s) Active [facility] 2017 [facility] celecoxib 200 200 mg=1 cap, Active 11/19[facility] [place] mg oral capsule PO, BID, 0 2018 Medical Refill(s) [place] ascorbic acid 500 mg=1 tab, Active 11/19[facility] [place] PO, BID, 0 2017 Medical Refill(s) [place] acetaminophen 1,000 mg=2 tab, Active 11/19[facility] [place] 500 mg oral PO, Q6Hnow, 0 2017 Medical tablet Refill(s) [place] Oxycodone 5 mg=1 tab, PO, Active 11/19[facility] [place] Hydrochloride 5 Q4H, PRN Pain 2018 Medical MG Oral Tablet Score 4-6, 0 Center Refill(s) zinc sulfate 220 mg=1 cap, Active 11/19[facility] [place] 220 mg oral PO, Daily, 0 2018 Medical capsule Refill(s) [place] multivitamin 1 tab, PO, Active 11/19[facility] [place] Daily, 0 2018 Medical Refill(s) [place] methocarbamol 1,000 mg=2 tab, Active 11/19[facility] [place] 500 mg oral PO, Q8H, 0 2018 Medical tablet Refill(s) [place] LORazepam 0.5 0.5 mg=1 tab, Active [place] mg oral tablet PO, Q8H, PRN 2018 Medical Anxiety, 0 Center Refill(s) Lidocaine 3 patch, TOP, Active [place] Hydrochloride Daily, Remove 2018 Medical 0.05 MG/MG after 12 hours, Center Transdermal 0 Refill(s) Patch [Lidoderm] Robaxin 1,000 mg, 2 No Longer [facility] tab, Route: PO, Active 2018 Medical Drug [...] Ativan 0.5 mg, 1 tab, No Longer [facility] Route: PO, Drug Active 2018 Medical form: TAB, Q8H, Center Dosing Weight 127.027, kg, PRN Anxiety, Start date: 11/17/17 10:18:00 CDT, Duration: 7 day, Stop date: 11/24/17 10:17:00 CDTNotes: (Same as: Ativan) Trazodone 50 mg, 1 tab, No Longer [facility] Hydrochloride Route: PO, Drug Active 2018 Medical [...] day. Oxycodone 10 mg, 2 tab, Inactive [facility] Hydrochloride 5 Route: PO, Drug 2018 Medical MG Oral Tablet form: TAB, Center ONCE, Dosing Weight 127.027, kg, Start date: 11/16/17 17:01:00 CDT, Stop date: 11/16/17 17:01:00 CDTNotes: (Same as: Roxicodone) Celebrex 200 mg, 1 cap, No Longer [facility] Route: PO, Drug Active 2018 Medical form: CAP, BID, [place] Dosing Weight 127.027, kg, Start date: 11/16/17 17:00:00 CDT, Duration: 30 day, Stop date: 12/16/17 9:00:00 CDTNotes: NSAID. Please check indication. Not for seizure. (Same As: CeleBREX) Vancomycin 1,500 mg, 250 No Longer [place] mL, Route: Active 2018 Medical IVPB, Drug Center form: INJ, [id number], Dosing Weight 127.27, kg, Start date: 11/16/17 16:00:00 CDT, Stop date: 11/21/17 8:00:00 CDT, ABX Indication: Skin/Soft Tissue InfectionNotes: TIME CRITICAL MEDICATION Same as: Vancocin-NS (premixed) Infusion rate 2001 mg: infuse over 2.5 hours Lidocaine 3 patch, Route: No Longer [facility] Hydrochloride TOP, Daily, Active 2017 Medical 0.05 MG/MG Drug form: [place] Transdermal FILM, Start Patch date: 11/16/17 [Lidoderm] 9:00:00 CDT, Duration: 7 day, Stop date: 11/22/17 9:00:00 CDT, Remove after 12 hoursNotes: Apply only once for up to 12 hours in a 24-hour period (12 hours on and 12 hours off). (Same as: Lidoderm) "Remove old patch before application of new patch" Phenergan 12.5 mg, 0.5 Inactive [place] mL, Route: 2018 [facility] IVPB, Drug Center form: INJ, ONCE, Dosing Weight 127.027, kg, Priority: NOW, Start date: 11/15/17 17:40:00 CDT, Stop date: 11/15/17 17:40:00 CDTNotes: Do not give IV push. (Same as: Phenergan) Dilaudid 0.5 mg, 0.25 Inactive [place] mL, Route: IVP, 2017 Medical Drug form: INJ, Center ONCE, Dosing Weight 127.027, kg, Priority: NOW, Start date: 11/15/17 17:40:00 CDT, Stop date: 11/15/17 17:40:00 CDTNotes: Same as Dilaudid Tramadol 100 mg, 2 tab, No Longer [facility] Route: PO, Drug Active 2017 Medical form: TAB, Center Q6Hnow, Dosing Weight 127.027, kg, Start date: 11/15/17 17:00:00 CDT, Duration: 30 day, Stop date: 12/15/17 11:00:00 CDTNotes: Not to exceed 400mg/day. (Same As: Ultram) gabapentin 600 mg, 2 cap, No Longer [facility] Route: PO, Drug Active 2017 Medical form: CAP, Center Q8Hnow, Dosing Weight 127.027, kg, Start date: 11/15/17 17:00:00 CDT, Stop date: 12/15/17 9:00:00 CDTNotes: (Same as: Neurontin) Acetaminophen 1,000 mg, 2 No Longer [facility] tab, Route: PO, Active 2017 Medical Drug form: TAB, Center Q6Hnow, Dosing Weight 127.027, kg, Start date: 11/15/17 17:00:00 CDT, Duration: 30 day, Stop date: 12/15/17 11:00:00 CDTNotes: Max acetaminophen 4000 mg/day (4 gm/day). (Same as: Tylenol Extra Strength) Robaxin 500 mg, 1 tab, No Longer [facility] Route: PO, Drug Active 2017 Medical form: TAB, TID, Center Dosing Weight 127.027, kg, Start date: 11/15/17 17:00:00 CDT, Duration: 30 day, Stop date: 12/15/17 13:00:00 CDTNotes: (Same as:Robaxin) Oxycodone 5 mg, 1 tab, No Longer [facility] Hydrochloride 5 Route: PO, Drug Active 2018 [...] CDT Phenergan 25 mg, 1 tab, Inactive [facility] Route: PO, Drug 2018 Medical form: TAB, [...] Docusate 100 mg, 1 cap, No Longer [facility] Route: PO, Drug Active 2018 Medical form: CAP, BID, Center Dosing Weight 127.27, kg, Start date: 11/15/17 9:00:00 CDT, Duration: 30 day, Stop date: 12/14/17 17:00:00 CDTNotes: (Same as: Colace) (Do Not Crush) Zinc Sulfate 220 mg, 1 cap, No Longer [place] Route: PO, Drug Active 2018 Medical form: CAP, Center Daily, Dosing Weight 127.27, kg, Start date: 11/15/17 9:00:00 CDT, Duration: 30 day, Stop date: 12/14/17 9:00:00 CDTNotes: (Zinc sulfate capsule) - 220 mg Zinc sulfate=50 mg elemental zinc Same as Zinc Sulfate ascorbic acid 500 mg, 1 tab, No Longer [place] Route: PO, Drug Active 2017 Medical form: TAB, BID, Center Dosing Weight 127.27, kg, Start date: 11/15/17 9:00:00 CDT, Duration: 30 day, Stop date: 12/14/17 17:00:00 CDTNotes: (Same as: Vitamin C) multivitamin 1 tab, Route: No Longer [place] PO, Drug Form: Active 2018 Medical TAB, Dosing Center Weight 127.27, kg, Daily, Start date: 11/15/17 9:00:00 CDT, Duration: 30 day, Stop date: 12/14/17 9:00:00 CDTNotes: (Same as:Thera) WASTE: F/P - Black; E - Municipal Trash Bin Take with food. Naproxen 500 mg, 1 tab, Inactive [place] Route: PO, Drug 2017 Medical form: TAB, Center [id number], Dosing Weight 127.27, kg, Start date: 11/15/17 2:00:00 CDT, Duration: 30 day, Stop date: 12/14/17 14:00:00 CDTNotes: (Same as: Naprosyn) Take with food. Zosyn 3.375 gm, No Longer [facility] Route: IVPB, Active 2018 Medical Drug form: [...] Active 2017 Medical Drug form: INJ, Center [id number], Dosing Weight 127.27, kg, Consider for obese [...] Stop date: 12/15/17 1:45:00 CDTNotes: (Same as: [place] 325/5) Do not exceed 4gm/day of acetaminophen. [...] Bin Sodium Chloride 1,000 mL, 1000 Inactive [facility] 0.9% (Bolus) IV ml/hr, Infuse 2018 Medical [...] Extra Strength) Rocephin 1 gm, Route: Inactive 05/04[facility] IVP, Drug form: 2018 Medical PDR/INJ, ONCE, Center Dosing Weight 127.273, kg, Priority: STAT, Start date: 11/14/17 21:21:00 CDT, Stop date: 11/14/17 21:21:00 CDT, ABX Indication: Urinary Tract InfectionNotes: (Same As: Rocephin). MEDICATION WASTE Product Size: 1000 mg Product Wasted: _0__ mg Morphine 4 mg, Route: Inactive [facility] IVP, ONCE, 2018 Medical Dosing Weight Center 127.273, kg, Priority: STAT, Start date: 11/14/17 19:05:00 CDT, Stop date: 11/14/17 19:05:00 CDT Benadryl 25 mg, 0.5 mL, Inactive [facility] Route: IVP, 2017 Medical Drug form: INJ, Center ONCE, Dosing Weight 127.273, kg, Priority: STAT, Start date: 11/14/17 18:14:00 CDT, Stop date: 11/14/17 18:14:00 CDTNotes: (Same as: Benadryl) Benadryl 50 mg, 2 cap, Inactive 11/14[facility] Route: PO, Drug 2017 Medical form: CAP, Center ONCE, Dosing Weight 127.273, kg, Priority: STAT, Start date: 11/14/17 17:56:00 CDT, Stop date: 11/14/17 17:56:00 CDTNotes: (Same as: Benadryl) Morphine 4 mg, 1 mL, Inactive 11/14[facility] Route: IVP, 2017 Medical Drug form: [...] For Pain [place] Oxycodone FOUR TIMES Active [facility] St. Hcl/Acetaminoph DAILY 2016 [facility] [place] Meropenem Q8H Active [facility] St[facility] 2013 [facility] [place] Collagenase DAILY Active [facility] St[facility] 2013 [facility] [place] Ciprofloxacin Q12H Active [facility] St. 400mg Iv 2013 [facility] [place] Amikacin Sulf DAILY Active [place] [facility] St[facility] 2013 [facility] [place] Linezolid TWICE DAILY Inactive [facility] 2013 [facility] [place] Allergies, Adverse Reactions, Alerts Substance Category Reaction Severity Reaction Status Date Comments Source type Reported levofloxacin Hives Moderate Allergy to Active [facility] St[facility] Substance 8 [facility] [place] sulfamethoxa Hives Moderate Allergy to Active [facility] St. zole Substance 8 [facility] [place] ketorolac Nausea/Vo Allergy to Active [facility] St. tromethamine [place] Substance 8 [facility] [place] vancomycin Hives Allergy to Active [facility] St. Substance 8 [facility] [place] ondansetron Nausea/Vo Mild Propensity Active [facility] St. miting to adverse 8 [facility] [place] ciprofloxaci Nausea/Vo Propensity Active [facility] St. n miting to adverse 8 [facility] [place] doxycycline Nausea/Vo Propensity Active [facility] St. miting to adverse 8 [facility] [place] morphine Assertion Drug Active [facility] amoxicillin Assertion Drug Active [facility] Toradol Assertion Drug Active [facility] Minocin Assertion Drug Active [facility] Zofran Assertion Drug Active [facility] Levaquin Assertion Drug Active [facility] Bactrim Assertion Drug Active [facility] Immunizations Immunization Date Given Site Status Last Updated Comments Source Results Order Name Results Value Reference Date Interpretation Comments Source Range Brain-Outs Brain-Outsid EXAM: CT BRAIN WITHOUT CONTRAST -- OUTSIDE CONSULT 05/22 - [facility] justina e Consult - Medical Consult CT This report was dictated by a [place] Repairer/Fellow. I have personally reviewed the images as Center well as the Resident's interpretation and agree with the findings. DATE: 05/22/2018 4:49 AM MANAGER TRANSFUSION Read by: Hong Vega MD Resident: Hong Vega MD Dictated Date/time: 05/22/18 04:58 Electronically Signed by: Jackie Lozano MD 05/22/18 07:46 FINAL REPORT INDICATION: " - PAIN" COMPARISON: Noncontrast head CTs 11/14/2017, 07/30/2014, 03/27/2013 TECHNIQUE: Noncontrast outside hospital CT submitted for 2nd interpretation. 205 images. Imaging was performed at [facility] on 05/22/2018. IV contrast: None. FINDINGS: Overall [...] agrees with the preliminary report by the vice president financial. CHEM PANEL B/C Ratio 17 6 - 25 11/[address] CHEM PANEL Globulin 4.3 g/dL 2.7 - 4.2 11/[address] CHEM PANEL A/G Ratio 0.7 0.7 - 1.6 11/[address] CHEM PANEL AGAP 14.4 meq/L 10.0 - 11/19 [facility] 20.0 [facility] CHEM PANEL eGFR 113 11/19 Result Comment: The eGFR is calculated using the CKD-EPI formula. In most young, healthy individuals the eGFR will be >90 mL/ min/1.73m2. The eGFR declines with age. An eGFR of 60-89 may be normal in [facility] mL/min/1.7 some populations, particularly the elderly, for whom the CKD-EPI formula has not been extensively validated. Use of the eGFR is not recommended in the following populations: [address] Individuals with unstable creatinine concentrations, including [...] Phos 76 unit/L 39 - 136 05/ [address] CHEM PANEL ALT 35 unit/L 0 - 65 / [address] CHEM PANEL Albumin Lvl 2.8 g/dL 3.5 - 5.0 / [address] CHEM PANEL Total 7.1 g/dL 6.4 - 8.4 11/19 [facility] Protein [address] CHEM PANEL Calcium Lvl 8.7 mg/dL 8.5 - 10.5 11/[address] CHEM PANEL AST 18 unit/L 0 - 37 / [address] CHEM PANEL Bili Total 0.3 mg/dL 0.2 - 1.3 11/[address] CHEM PANEL Potassium 4.4 meq/L 3.5 - 5.1 11/19 [facility] [address] [place] [address] CHEM PANEL Chloride Lvl 109 meq/L 95 - 109 11/[address] CHEM PANEL CO2 23 meq/L 24 - 32 / [address] CHEM PANEL Glucose Lvl 114 mg/dL 70 - 99 11/[address] CHEM PANEL Creatinine 1.01 mg/dL 0.50 - 11/19 [facility] 1.40 /[address] [place] [address] CHEM PANEL BUN 17 mg/dL 7 - 22 11/[address] CHEM PANEL Sodium Lvl 142 meq/L 135 - 145 11/[address] HEMATOLOGY Basophils 0.6 % 0.0 - 1.0 / [address] HEMATOLOGY Segs-Bands # 4.8 K/CMM 1.5 - 8.1 11/[address] HEMATOLOGY Monocytes # 0.7 K/CMM 0.0 - 0.8 / [address] HEMATOLOGY Lymphocytes 1.9 K/CMM 1.0 - 5.5 / [address] HEMATOLOGY Monocytes 9.4 % 2.0 - 12.0 / [address] HEMATOLOGY Eosinophils 0.2 K/CMM 0.0 - 0.5 11/19 [facility] # /2017 [facility] HEMATOLOGY Eosinophils 2.9 % 0.0 - 4.0 11/19 [facility] HEMATOLOGY Segs 62.2 % 45.0 - 11/19 [place] 75.0 [facility] HEMATOLOGY Lymphocytes 24.9 % 20.0 - 11/19 [place] 40.0 [facility] HEMATOLOGY MCH 27.5 pg 27.0 - 11/19 [place] 31.0 [facility] HEMATOLOGY MCV 85.3 fL 80.0 - 11/19 [place] 94.0 [facility] HEMATOLOGY Hct 43.9 % 42.0 - 11/19 [place] 54.0 [facility] HEMATOLOGY Hgb 14.2 g/dL 14.0 - 11/19 18.0 [facility] HEMATOLOGY WBC 7.7 K/CMM 3.7 - 10.4 11/19 [facility] HEMATOLOGY RBC 5.15 M/CMM 4.70 - 11/19 [place] 6.10 [facility] HEMATOLOGY MPV 8.4 fL 7.4 - 10.4 11/19 [facility] HEMATOLOGY MCHC 32.3 g/dL 32.0 - 11/19 [place] 36.0 [facility] HEMATOLOGY RDW 17.3 % 11.5 - 11/19 14.5 [facility] HEMATOLOGY Platelet 317 K/CMM 133 - 450 11/[address] CHEM PANEL Globulin 4.4 g/dL 2.7 - 4.2 11/18 2017 [facility] CHEM PANEL A/G Ratio 0.6 0.7 - 1.6 11/18 [facility] CHEM PANEL B/C Ratio 17 6 - 25 11/18 [facility] CHEM PANEL AGAP 11.3 meq/L 10.0 - 11/18 20.0 [facility] CHEM PANEL eGFR 134 11/18 Result Comment: The eGFR is calculated using the CKD-EPI formula. In most young, healthy individuals the eGFR will be >90 mL/ min/1.73m2. The eGFR declines with age. An eGFR of 60-89 may be normal in [facility] mL/min/1.7 some populations, particularly the elderly, for whom the CKD-EPI formula has not been extensively validated. Use of the eGFR is not recommended in the following populations: [address] Individuals with unstable creatinine concentrations, including [...] PANEL Creatinine 0.84 mg/dL 0.50 - 11/18 [facility] Lvl 1.40 [facility] CHEM PANEL Sodium Lvl 142 meq/L 135 - 145 11/[address] CHEM PANEL Glucose Lvl 99 mg/dL 70 - 99 11/[address] CHEM PANEL BUN 14 mg/dL 7 - 22 11/[address] CHEM PANEL Alk Phos 79 unit/L 39 - 136 11/[address] CHEM PANEL Bili Total 0.3 mg/dL 0.2 - 1.3 11/[address] CHEM PANEL AST 14 unit/L 0 - 37 11/[address] CHEM PANEL ALT 43 unit/L 0 - 65 11/[address] CHEM PANEL Total 7.1 g/dL 6.4 - 8.4 11/18 [facility] Protein [address] CHEM PANEL Albumin Lvl 2.7 g/dL 3.5 - 5.0 11/[address] CHEM PANEL Calcium Lvl 9.2 mg/dL 8.5 - 10.5 11/[address] CHEM PANEL CO2 21 meq/L 24 - 32 11/[address] CHEM PANEL Potassium 4.3 meq/L 3.5 - 5.1 11/18 [facility] Lvl [address] [place] [address] CHEM PANEL Chloride Lvl 114 meq/L 95 - 109 11/[address] HEMATOLOGY MCHC 32.5 g/dL 32.0 - 11/18 [facility] 36.0 [facility] HEMATOLOGY RDW 17.5 % 11.5 - 11/18 [facility] 14.5 [facility] HEMATOLOGY Platelet 400 K/CMM 133 - 450 11/[address] HEMATOLOGY MPV 8.5 fL 7.4 - 10.4 11/[address] HEMATOLOGY WBC 6.6 K/CMM 3.7 - 10.4 11/[address] [place] [address] HEMATOLOGY RBC 5.17 M/CMM 4.70 - 11/18 [facility] 6.10 [facility] HEMATOLOGY MCV 86.1 fL 80.0 - 11/18 [facility] 94.0 [facility] HEMATOLOGY Hct 44.5 % 42.0 - 11/18 [facility] 54.0 [facility] HEMATOLOGY MCH 28.0 pg 27.0 - 11/18 [facility] 31.0 [facility] HEMATOLOGY Hgb 14.5 g/dL 14.0 - 11/18 [facility] 18.0 [facility] HEMATOLOGY Lymphocytes 1.7 K/CMM 1.0 - 5.5 11/18 [facility] HEMATOLOGY Monocytes # 0.7 K/CMM 0.0 - 0.8 11/[address] HEMATOLOGY Eosinophils 0.2 K/CMM 0.0 - 0.5 11/18 [facility] HEMATOLOGY Lymphocytes 26.1 % 20.0 - 11/18 [facility] 40.0 [facility] HEMATOLOGY Segs 59.3 % 45.0 - 11/18 [facility] 75.0 [facility] HEMATOLOGY Basophils 0.8 % 0.0 - 1.0 11/[address] HEMATOLOGY Monocytes 10.5 % 2.0 - 12.0 11/[address] HEMATOLOGY Eosinophils 3.3 % 0.0 - 4.0 11/[address] HEMATOLOGY Segs-Bands # 3.9 K/CMM 1.5 - 8.1 11/[address] TOXICOLOGY Vanco Tr TND 15:30pm 11/[address] TOXICOLOGY Vanco Tr 9.1 ug/ml 11/[address] CHEM PANEL Glucose Lvl 74 mg/dL 70 - 99 11/[address] CHEM PANEL BUN 12 mg/dL 7 - 22 11/[address] CHEM PANEL Creatinine 0.75 mg/dL 0.50 - 11/17 [facility] Lvl 1.40 [facility] CHEM PANEL eGFR 140 11/17 Result Comment: The eGFR is calculated using the CKD-EPI formula. In most young, healthy individuals the eGFR will be >90 mL/ min/1.73m2. The eGFR declines with age. An eGFR of 60-89 may be normal in [facility] mL/min/1. some populations, particularly the elderly, for whom the CKD-EPI formula has not been extensively validated. Use of the eGFR is not recommended in the following populations: [address] Individuals with unstable creatinine concentrations, including [...] Lvl 2.9 g/dL 3.5 - 5.0 11/[address] CHEM PANEL Globulin 4.4 g/dL 2.7 - 4.2 11/[address] CHEM PANEL A/G Ratio 0.7 0.7 - 1.6 11/[address] CHEM PANEL Bili Total 0.4 mg/dL 0.2 - 1.3 11/[address] CHEM PANEL Alk Phos 71 unit/L 39 - 136 11/[address] CHEM PANEL AST 15 unit/L 0 - 37 11/[address] CHEM PANEL ALT 28 unit/L 0 - 65 11/[address] CHEM PANEL Potassium 4.4 meq/L 3.5 - 5.1 11/17 [facility] [address] [place] [address] CHEM PANEL Sodium Lvl 147 meq/L 135 - 145 11/[address] CHEM PANEL CO2 25 meq/L 24 - 32 11/[address] CHEM PANEL Chloride Lvl 114 meq/L 95 - 109 / [address] CHEM PANEL B/C Ratio 16 6 - 25 11/[address] CHEM PANEL Calcium Lvl 8.7 mg/dL 8.5 - 10.5 11/[address] CHEM PANEL AGAP 12.4 meq/L 10.0 - 05/ [facility] 20.0 [facility] CHEM PANEL Total 7.3 g/dL 6.4 - 8.4 11/17 [facility] [place] Protein [address] HEMATOLOGY Platelet 345 K/CMM 133 - 450 05 [facility] HEMATOLOGY MPV 8.7 fL 7.4 - 10.4 11/17 [facility] HEMATOLOGY WBC 6.9 K/CMM 3.7 - 10.4 11/17 [facility] HEMATOLOGY RBC 5.30 M/CMM 4.70 - 11/17 6.10 [facility] HEMATOLOGY MCHC 32.8 g/dL 32.0 - 11/17 36.0 [facility] HEMATOLOGY MCH 27.9 pg 27.0 - 11/17 31.0 [facility] HEMATOLOGY Hgb 14.8 g/dL 14.0 - 11/17 18.0 [facility] HEMATOLOGY MCV 85.0 fL 80.0 - 11/17 [facility] 94.0 [facility] HEMATOLOGY Hct 45.1 % 42.0 - 11/17 54.0 [facility] HEMATOLOGY RDW 17.5 % 11.5 - 11/17 14.5 [facility] HEMATOLOGY Eosinophils 0.2 K/CMM 0.0 - 0.5 11/17 [facility] # [facility] HEMATOLOGY Lymphocytes 2.0 K/CMM 1.0 - 5.5 11/17 [facility] HEMATOLOGY Monocytes # 0.7 K/CMM 0.0 - 0.8 05 [facility] HEMATOLOGY Eosinophils 2.4 % 0.0 - 4.0 11/17 [facility] HEMATOLOGY Basophils 0.6 % 0.0 - 1.0 11/[address] [place] [address] HEMATOLOGY Segs-Bands # 4.0 K/CMM 1.5 - 8.1 11/17 [facility] HEMATOLOGY Monocytes 10.4 % 2.0 - 12.0 11/17 [facility] HEMATOLOGY RBC Morph Normal 11/17 [facility] (11/17/17 2:07 AM) [place] HEMATOLOGY Segs 58.1 % 45.0 - 11/17 75.0 [facility] HEMATOLOGY Plt Morph Normal 11/17 [facility] (11/17/17 2:07 AM) [place] HEMATOLOGY Lymphocytes 28.5 % 20.0 - 11/17 [place] 40.0 [facility] HEMATOLOGY Basophils # 0.1 K/CMM 0.0 - 0.2 11/16 [facility] HEMATOLOGY Polychrom Moderate None Seen 11/16 [facility] [place] (11/16/17 11:07 AM) TOXICOLOGY Vanco Tr TND * 11/[address] TOXICOLOGY Vanco Tr 22.3 ug/ml 11/[address] CHEM PANEL Magnesium 2.3 mg/dL 1.8 - 2.4 11/15 [facility] CHEM PANEL Phosphorus 3.5 mg/dL 2.5 - 4.5 11/[address] HEMATOLOGY PT 14.0 s 12.0 - 11/15 [facility] 14. [facility] HEMATOLOGY PTT 37.6 s 22.9 - 11/15 [facility] 35. [facility] HEMATOLOGY INR 1.08 0.85 - 11/15 [facility] 1. [facility] IMMUNOLOGY C-REACTIVE 13.1 mg/L <=2.9 mg/L 11/15 [facility] PROTEIN [facility] IMMUNOLOGY Prealbumin 25.2 mg/dL 18.0 - 11/15 [facility] 45.0 [facility] CHEM PANEL Lactic Acid 0.9 mMol/L 0.5 - 2.2 11/15 [facility] HEMATOLOGY Sed Rate 5 mm/h 0 - 15 11/[address] IMMUNOLOGY C-REACTIVE 15.8 mg/L <=2.9 mg/L 11/15 [facility] PROTEIN [address] HEMATOLOGY PT 13.0 s 12.0 - 11/15 [facility] 14. [facility] HEMATOLOGY INR 0.98 0.85 - 11/15 [facility] 1. [facility] HEMATOLOGY PTT 33.2 s 22.9 - 11/15 [facility] 35. [facility] BLOOD BANK Antibody Negative 11/14 [facility] RESULTS [facility] (11/14/17 6:51 PM) [place] BLOOD BANK ABO/Rh AB POS 11/14 [facility] RESULTS [address] [place] [address] URINE AND UA 0.2 EU/dL 0.1 - 1.0 11/14 [facility] STOOL Urobilinogen /[address] [place] [address] URINE AND UA Nitrite Negative Negative 11/14 [facility] STOOL [facility] (11/14/17 6:35 PM) [place] URINE AND UA Glucose Negative Negative 11/14 [facility] (11/14/17 6:35 PM) [place] URINE AND UA Ketones Negative Negative 11/14 [place] [address] Medical *NA* Center (11/14/17 6:35 PM) URINE AND UA Bili Negative Negative 11/14 [facility] [address] [place] [address] *NA* [place] (11/14/17 6:35 PM) URINE AND UA Blood Trace Negative 11/14 [facility] *ABN* [place] (11/14/17 6:35 PM) URINE AND UA Leuk Est Small Negative 11/14 [facility] *ABN* [place] (11/14/17 6:35 PM) URINE AND UA Spec Grav 1.020 <=1.030 11/[address] URINE AND UA pH 6.0 5.0 - 8.0 11/[address] URINE AND UA Color Yellow Yellow 11/14 [facility] [address] [place] [address] *NA* [place] (11/14/17 6:35 PM) URINE AND UA Protein Trace Negative 11/14 [facility] *ABN* [place] (11/14/17 6:35 PM) URINE AND UA Turbidity Slight Cloudy Clear 11/[address] (11/14/17 6:35 PM) [place] URINE AND UA Hyal Cast 0-2 0 - 2 11/[address] (11/14/17 6:35 PM) [place] URINE AND UA Bacteria Occasional None Seen 11/14 [facility] /HPF /HPF /2017 [facility] URINE AND UA RBC 11-20 /HPF 0 - 2 11/[address] URINE AND UA Sq Epi Occasional Few /LPF 11/14 [facility] /LPF /[address] [place] [address] URINE AND UA WBC 51-100 None Seen 11/14 [facility] /HPF /HPF /[address] [place] [address] HEMATOLOGY Basophils # 0.1 K/CMM 0.0 - 0.2 11/[address] HEMATOLOGY Polychrom Slight 11/[address] HEMATOLOGY Plt Morph Normal 11/[address] (11/14/17 6:20 PM) [place] Brain Brain shunt EXAM: SKULL 2 VIEWS 11/14 - [facility] shunt series DX /2017 - Medical series DX EXAM: CHEST 2 VIEWS This report was dictated by a Brakeshoe Repairer/Fellow. I have personally reviewed the images as [...] EXAM: CT BRAIN WITHOUT CONTRAST 11/14 - [facility] contrast contrast CT /2017 - Medical CT This report was dictated by a Brakeshoe Repairer/Fellow. I have personally reviewed the images as Center well as the Resident's interpretation and agree with the findings. DATE: 11/14/2017 627 PM CDT Read by: Josemanuel Hoyt MD Resident: Josemanuel Hoyt MD Dictated Date/time: 11/14/17 18:45 Electronically Signed by: Jovan Talley MD 11/14/17 21:12 FINAL REPORT INDICATION: 32-year-old male patient with history of vp respiratory shunt malfunction COMPARISON: CT of the brain 07/30/2014, 03/27/2013. TECHNIQUE: Axial CT images of the brain were obtained. Sagittal and coronal reformats. IV contrast: None. FINDINGS: An orphaned right occipital approach DIETETICS TEACHER shunt is present. Also present is a right frontal approach DIETETICS TEACHER shunt with tip in the left lateral [...] EXAM: XR CHEST 1 VIEW 11/14 - [facility] 1view DX DX /2017 - Medical This report was dictated by a Brakeshoe Repairer/Fellow. I have personally reviewed the images as [...] Level 142 mEq/L 135 - 145 10/07 [facility] St. Studies /2017 [facility] [place] [facility] Potassium 4.4 mEq/L 3.6 - 5.0 10/07 [facility] St. Studies Level /2017 [facility] [place] [facility] Magnesium 1.8 mg/dL 1.8 - 2.5 10/07 [facility] St. Studies Level /2017 [facility] [place] [facility] Glucose 126 mg/dL 65 - 120 10/07 [facility] St. Studies Level /2017 [facility] [place] [facility] Estimat null 90 10/07 [facility] St. Studies Glomerular /2017 [facility] Filtration [place] Rate Laboratory Creatinine 0.83 mg/dL 0.61 - 10/07 [facility] St. Studies 1.24 [facility] [place] [facility] Chloride 108 mEq/L 101 - 111 10/07 [facility]. Studies Level /2017 [facility] [place] [facility] Carbon 27 mEq/L 21 - 31 10/07 [facility]. Studies Dioxide /2017 [facility] Level [place] [facility] Calcium 9.1 mg/dL 8.5 - 10.5 10/07 [facility]. Studies Level /2017 [facility] [place] [facility] Blood Urea 15 mg/dL 6 - 20 10/07 [facility]. Studies Nitrogen /2017 [facility] [place] [facility] White Blood 7.0 K/uL 4.3 - 10.9 10/07 [facility]. Studies Count /2017 [facility] [place] [facility] Red Cell 17.4 % 12.1 - 10/07 [facility]. Studies Distribution 15.2 [facility] Width [place] [facility] Red Blood 5.14 M/uL 4.33 - 10/07 [facility]. Studies Count 5.43 [facility] [place] [facility] Platelet 270 K/uL 152 - 406 10/07 [facility]. Studies Count /2017 [facility] [place] [facility] Neutrophils 62.3 % 41.7 - 10/07 [facility]. Studies % 73.7 /2017 [facility] [place] [facility] Monocytes % 9.3 % 3.3 - 12.3 10/07 [facility]. Studies /2017 [facility] [place] [facility] Mean 8.3 fL 7.6 - 11.3 10/07 [facility]. Studies Platelet /2017 [facility] Volume [place] [facility] Mean 82.8 fL 80 - 100 10/07 [facility]. Studies Corpuscular /2017 [facility] Volume [place] [facility] Mean 33.4 g/dL 32.0 - 10/07 [facility]. Studies Corpuscular 36.0 [facility] Hemoglobin [place] Concent [facility] Mean 27.6 pg 27.0 - 10/07 [facility]. Studies Corpuscular 35.0 /2017 [facility] Hemoglobin [place] [facility] Lymphocytes 24.6 % 15.3 - 10/07 [facility]. Studies % 44.8 /2017 [facility] [place] [facility] Hemoglobin 14.2 g/dL 13.6 - 10/07 [facility] St. Studies 17.9 /2017 [facility] [place] [facility] Hematocrit 42.6 % 39.6 - 10/[address] [facility] [address] Studies 49.0 [facility] [place] [facility] Eosinophils 3.3 % 0 - 4.4 10/07 [facility] St. Studies % /2017 [facility] [place] [facility] Basophils % 0.5 % 0 - 1.3 10/07 [facility] St. Studies /2017 [facility] [place] [facility] Absolute 4.4 K/uL 1.8 - 8.0 10/07 [facility] St. Studies Neutrophil /2017 [facility] [place] [facility] Absolute 0.7 K/uL 0.1 - 1.3 10/07 [facility] St. Studies Monocytes /2017 [facility] (CBC) [place] [facility] Absolute 1.7 K/uL 0.7 - 4.9 10/07 [facility] St. Studies Lymphocytes /2017 [facility] (CBC) [place] [facility] Absolute 0.2 K/uL 0 - 0.5 10/07 [facility] St. Studies Eosinophils [facility] (CBC) [place] [facility] Absolute 0.0 K/uL 0 - 0.5 10/07 [facility] St. Studies Basophils [facility] (CBC) [place] Microbiolo Providencia Providenci 10/06 [facility] St. gy Studies Rettgeri a Rettgeri /2017 [facility] [place] [facility] Urine WBC null 10/04 [facility] St. Studies /2017 [facility] [place] [facility] Urine null 10/04 [facility] St. Studies Squamous /2017 [facility] Epithelial [place] Cells Laboratory Urine RBC Urine RBC 10/04 [facility] St. Studies /2017 [facility] [place] [facility] Urine Urine 10/04 [facility] St. Studies Culture Culture /2017 [facility] Reflexed Reflexed [place] [facility] Urine null 10/04 [facility] St. Studies Bacteria /2017 [facility] [place] [facility] Urine pH 6.5 10/04 [facility] St. Studies /2018 [facility] [place] [facility] Urine 2.0 mg/dL 10/04 [facility] St. Studies Urobilinogen /2017 [facility] [place] [facility] Urine Total Urine 10/04 [facility] St. Studies Protein Total /2017 [facility] Protein [place] [facility] Urine 1.020 10/04 [facility] St. Studies Specific /2017 [facility] [place] [facility] Urine Urine 10/04 [facility] St. Studies Nitrite Nitrite /2017 [facility] [place] [facility] Urine Urine 10/04 [facility] St. Studies Leukocyte Leukocyte /2017 [facility] Esterase Esterase [place] [facility] Urine Urine 10/[address] Studies Ketones Ketones [facility] [place] [facility] Urine Urine 10/04 [facility] Studies Glucose Glucose [facility] [place] [facility] Urine Color Urine 10/04 [facility]. Studies Color /2017 [facility] [place] [facility] Urine Blood Urine 10/04 [facility]. Studies Blood [facility] [place] [facility] Urine Urine 10/04 [facility]. Studies Bilirubin Bilirubin [facility] [place] [facility] Urine Urine 10/04 [facility]. Studies Appearance Appearance /2017 [facility] [place] [facility] Prothrombin 13.0 9.5 - 12.5 10/03 [facility] Studies Time SECONDS [facility] [place] [facility] INR 1.10 10/03 [facility]. Studies Internationa /2017 [facility] l Normalized [place] Ratio Laboratory Total 1.9 mg/dL 0.3 - 1.2 10/03 [facility] Studies Bilirubin /2017 [facility] [place] [facility] Serum Total 7.8 g/dL 6.0 - 8.3 10/03 [facility]. Studies Protein /2017 [facility] [place] [facility] Globulin 4.2 g/dL 2.3 - 3.5 10/03 [facility]. Studies /2017 [facility] [place] [facility] Direct 0.6 mg/dL 0 - 0.2 10/03 [facility] Studies Bilirubin /2017 [facility] [place] [facility] Aspartate 88 IU/L 10 - 42 10/03 [facility]. Studies Amino Transf /2017 [facility] (AST/SGOT) [place] [facility] Alkaline 192 IU/L 42 - 121 10/03 [facility]. Studies Phosphatase /2017 [facility] [place] [facility] Albumin/Glob 0.9 1.1 - 1.8 10/03 [facility] Studies ulin Ratio /2017 [facility] [place] [facility] Albumin 3.6 g/dL 3.2 - 5.5 10/03 [facility]. Studies /2017 [facility] [place] [facility] Alanine 135 IU/L 10 - 60 10/03 [facility]. Studies Aminotransfe /2017 [facility] rase [place] (ALT/SGPT) Laboratory Procalcitoni 0.44 ng/mL 10/03 [facility]. Studies n [facility] [place] [facility] B-Type 20 pg/ml 10/03 [facility]. Studies Natriuretic /2017 [facility] Peptide [place] [facility] Lipase 22 U/L 22 - 51 10/[address] [facility] Studies [facility] [place] [facility] Rapid null 10/03 [facility] St. Studies Troponin I [facility] [place] [facility] Lactic Acid 8.6 mg/dL 4.5 - 19.8 10/[address] Studies Level [facility] [place] [facility] Morganella Morganella 09/[address] gy Studies Morganii Morganii [facility] [place] [facility] Proteus Proteus 09/07 [facility] St[facility] gy Studies Mirabilis Mirabilis [facility] [place] [facility] Activated 32.2 24.3 - 09/01 [facility] St. Studies Partial SECONDS 36.9 [facility] Thromboplast [place] Time Vital Signs Vital Sign Value Date Comments Source Temperature Oral (F) 97.2 F 11/19/2017 [facility] Systolic (mm Hg) 127 11/19/2017 [facility] Diastolic (mm Hg) 85 11/19/2017 [facility] Heart Rate 81 11/19/2017 [facility] Respitory Rate 18 11/19/2017 [facility] Heart Rate 90 11/19/2017 [facility] Systolic (mm Hg) 106 11/19/2017 [facility] Diastolic (mm Hg) 71 11/19/2017 [facility] Respitory Rate 18 11/19/2017 [facility] Temperature Oral (F) 98.1 F 11/19/2017 [facility] Respitory Rate 18 11/19/2017 [facility] Systolic (mm Hg) 168 11/19/2017 [facility] Diastolic (mm Hg) 107 11/19/2017 [facility] Heart Rate 87 11/19/2017 [facility] Temperature Oral (F) 98.1 F 11/19/2017 [facility] Weight 127.027 11/18/2017 [facility] Weight 127.027 11/17/2017 [facility] Weight 127.027 11/15/2017 [facility] BMI Calculated 48.16 11/15/2017 [facility] Height 162.56 cm 11/15/2017 [facility] Height 149.86 cm 11/14/2017 [facility] BMI Calculated 56.67 11/14/2017 [facility] Heart Rate 85 10/07/2017 [facility] [place] Systolic (mm Hg) 145 10/07/2017 [facility] [place] Diastolic (mm Hg) 66 10/07/2017 [facility] [place] Temperature Oral (F) 97.7 F 10/07/2017 [facility] [place] Respitory Rate 16 10/07/2017 [facility] [place] Height 59 10/06/2017 [facility] [place] Weight 280 10/06/2017 [facility] [place] Encounters Location Location Encounter Encounter Reason Attending ADM DC Status Source Details Type Number For Provider Date Date Visit [facility] [id number] 07/11 07/[address] [facility] [place] [facility] [id number] 08/08 08/14 [facility] [place] [facility] [facility] Dep[facility]ed [id number] 09/01 09/[address] [facility] Emergency /2017 [facility] [place] [facility] [facility] [id number] 09/10 09/11 [facility]2017 [facility] [place] [facility] [facility] Registered [id number] 09[facility]26 [facility]2017 [facility] [place] [facility] [facility] [id number] 10/04 10/07 [facility] In[facility]2017 [facility] [place] [facility] [facility] Inpatient [id number] [place] 11/14 11/19 [facility] /2017 [facility] Procedures Procedure Code Date Perfomer Comments Source Chest Single View [id number] [facility] [place] [facility] [place] Gram Stain [id number] [facility] - [facility] [place] Culture & Sensitivity [id number] [facility] [place] - 8 [place] Anaerobic Blood [id number] [facility] [place] - Culture 8 [place] Aerobic Blood Culture [id number] [facility] [place] - 8 [place] Chest Single View [id number] [facility] [place] Gram Stain [id number] [facility] - [facility] [place] Culture & Sensitivity [id number] [facility] [place] Chest Single View [id number] [facility] - 8 [place] Cholecystectomy [id number] [facility] Shunt of cerebral [id number] [facility] ventricle to [facility] extracranial site
--- OUTSIDE RECORDS SUMMARY | 2018-09-03 12:47 | XMS REPORT ---
[...] tension-type headache, not G44.219 Active intractable Assessment TR[employer]EMARK PARALEGAL (ventriculoperitoneal) shunt Z98.2 Active status Assessment Ulcer [...] vomiting not specified, unspecified vomiting type Problem [employer] PAR[employer]GAL (ventriculoperitoneal) shunt Z98.2 Active status Medications Medication Code Code Instructions Start End Status Dosage System Date Date Tylenol with [facility] 60633727284 300-60 MG Active 1 tablet as Codeine #4 Orally every 6 needed hrs Macrobid [facility] 99724075412 100 MG Orally Active 1 capsule every 12 hrs with food Pantoprazole ND 53762783333 40 MG Orally Active 1 tablet Sodium Once a day Collagenase [facility] [address]-74 250 UNIT/GM Active 1 application Externally to affected Once a day area Results No Known Results Summary Purpose [employer] Submission
--- OUTSIDE RECORDS SUMMARY | 2018-09-03 12:47 | XMS REPORT ---
:1985 Author Organization [employer] Care Team Providers Name Role Phone Gamble, [...] headache, R51 Active unspecified headache type Problem SPARE HAND CARDING (ventriculoperitoneal) shunt Z98.2 Active status Medications No Known Medications Results No Known Results Summary Purpose [employer] Submission
--- OUTSIDE RECORDS SUMMARY | 2018-09-03 12:48 | XMS REPORT ---
[...] ulcer stage Problem Paraplegia G82.20 Active Assessment DIRECTOR OF EVENT MARKETING (ventriculoperitoneal) shunt Z98.2 Active status Problem Nausea [...] headache, R51 Active unspecified headache type Problem DIRECTOR OF EVENT MARKETING (ventriculoperitoneal) shunt Z98.2 Active status Problem Episodic tension-type headache, not G44.219 Active intractable Problem Lumbar spina bifida with Q05.2 Active hydrocephalus Problem Foot ulcer L97.509 Active Problem Nicotine dependence F17.200 Active Problem Dependence on wheelchair Z99.3 Active Medications Medication Code Code Instructions Start End Status Dosage System Date Date Macrobid [facility] 22316555827 100 MG Orally Active 1 capsule every 12 hrs with food Tylenol with [facility] 21774931297 300-60 MG Active 1 tablet as Codeine #4 Orally every 6 needed hrs Pantoprazole ND 42094969861 40 MG Orally Active 1 tablet Sodium Once a day Citalopram [facility] 85997843051 10 MG Orally Active 1 tablet Hydrobromide Once a day Collagenase [facility] [address]-47 250 UNIT/GM Active 1 application Externally to affected Once a day area Seroquel [facility] 47082855095 25 MG Orally Active 1 tablet Once a day at bedtime Results No Known Results Summary Purpose eClinicalWorks Submission
--- OUTSIDE RECORDS SUMMARY | 2018-09-03 12:48 | XMS REPORT ---
[...] hydrocephalus Problem Bipolar depression F31.30 Active Assessment TRY OUT PERSON (ventriculoperitoneal) shunt Z98.2 Active status Problem Depression [...] spina bifida with Q05.2 Active hydrocephalus Problem TRY OUT PERSON (ventriculoperitoneal) shunt Z98.2 Active status Problem Nicotine dependence F17.200 Active Medications Medication Code Code Instructions Start End Status Dosage System Date Date Collagenase [facility] [address]-78 250 UNIT/GM Active 1 application Externally to affected Once a day area Macrobid [facility] 39990425281 100 MG Orally Active 1 capsule every 12 hrs with food Tylenol with [facility] 18317754629 300-60 MG Active 1 tablet as Codeine #4 Orally every 6 needed hrs Citalopram [facility] 84412650980 10 MG Orally January Active 1 tablet Hydrobromide Once a day 2017 Pantoprazole [facility] 86101318638 40 MG Orally Active 1 tablet Sodium Once a day Seroquel [facility] 19297435300 25 MG Orally January Active 1 tablet Once a day at 16, bedtime 2017 Results No Known Results Summary Purpose eClinicalWorks Submission
--- OUTSIDE RECORDS SUMMARY | 2018-09-03 12:48 | XMS REPORT ---
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
--- OUTSIDE RECORDS SUMMARY | 2018-09-03 12:48 | XMS REPORT ---
:1985 [facility] [address] Lee [address] [place] [id number] Care Team Providers Name Role Phone CHADWICKJAQUELIN Unavailable Unavailable Problems This patient has no known problems. Allergies, Adverse Reactions, Alerts This patient has no known allergies or adverse reactions. Medications This patient has no known medications. Results Test Description Test Time Test Comments Text Results Atomic Results Result Comments BLOOD CULTURE 2016-12-28 16:22:00 Test Item Value Reference Range Comments CULTURE (BEAKER) (test sbfm=4090) No growth in 5 days BLOOD [id number] 16:22:00 Test Item Value Reference Range Comments CULTURE (BEAKER) (test qncz=6473) No growth in 5 days (MANUAL DIFFERENTIAL)2016-12-25 22:29:00 Test Item Value Reference Range Comments TOTAL COUNTED (BEAKER) (test lkrx=6104) WBC MORPHOLOGY (BEAKER) (test xgsd=751) Normal PLT MORPHOLOGY (BEAKER) (test olgh=798) Normal RBC MORPHOLOGY (BEAKER) (test smnq=487) Normal CBC W/PLT COUNT & AUTO [id number] 22:28:00 Test Item Value Reference Range Comments WHITE BLOOD CELL COUNT (BEAKER) (test bokn=604) 7.3 K/ L 4.0-10.0 RED BLOOD CELL COUNT (BEAKER) (test hazw=274) 5.09 M/ L 4.20-5.80 HEMOGLOBIN (BEAKER) (test ncev=102) 13.0 GM/DL 13.0-16.8 HEMATOCRIT (BEAKER) (test vshh=398) 42.3 % 40.0-50.0 MEAN CORPUSCULAR VOLUME (BEAKER) (test ibob=427) 83.0 fL 82.0-98.0 MEAN CORPUSCULAR HEMOGLOBIN (BEAKER) (test 25.6 pg 27.0-33.0 jrty=355) MEAN CORPUSCULAR HEMOGLOBIN CONC (BEAKER) (test 30.8 GM/DL 32.0-36.0 plmm=734) RED CELL DISTRIBUTION WIDTH (BEAKER) (test 18.0 % 10.3-14.2 kdat=859) PLATELET COUNT (BEAKER) (test saph=394) 331 K/CU MM 150-430 MEAN PLATELET VOLUME (BEAKER) (test prja=565) 8.5 fL 6.5-10.5 NUCLEATED RED BLOOD CELLS (BEAKER) (test 0 /100 WBC 0-0 pdji=894) NEUTROPHILS RELATIVE PERCENT (BEAKER) (test 65 % srlg=731) LYMPHOCYTES RELATIVE PERCENT (BEAKER) (test 23 % chbs=439) MONOCYTES RELATIVE PERCENT (BEAKER) (test 8 % qmmr=459) EOSINOPHILS RELATIVE PERCENT (BEAKER) (test 3 % ogtx=679) BASOPHILS RELATIVE PERCENT (BEAKER) (test 1 % lbuf=251) NEUTROPHILS ABSOLUTE COUNT (BEAKER) (test 4.75 K/ L 1.80-8.00 jjqz=223) LYMPHOCYTES ABSOLUTE COUNT (BEAKER) (test 1.68 K/ L 1.48-4.50 xwkw=786) MONOCYTES ABSOLUTE COUNT (BEAKER) (test 0.55 K/ L 0.00-1.30 zdby=561) EOSINOPHILS ABSOLUTE COUNT (BEAKER) (test 0.24 K/ L 0.00-0.50 lxcg=935) BASOPHILS ABSOLUTE COUNT (BEAKER) (test 0.05 K/ L 0.00-0.20 okko=515) 0.000.520.000.000.000.00BASI METABOLIC [id number] 11:11:00 Test Item Value Reference Range Comments SODIUM (BEAKER) (test 138 meq/L 136-145 lshv=822) POTASSIUM (BEAKER) (test 4.0 meq/L 3.5-5.1 hmln=028) CHLORIDE (BEAKER) (test 108 meq/L 98-107 rkoa=276) CO2 (BEAKER) (test 23 meq/L 22-29 mzsg=749) BLOOD UREA NITROGEN 11 mg/dL 7-21 (BEAKER) (test dhlm=433) CREATININE (BEAKER) (test 0.74 mg/dL 0.57-1.25 tfna=199) GLUCOSE RANDOM (BEAKER) 124 mg/dL 70-105 (test jkxn=102) CALCIUM (BEAKER) (test 8.9 mg/dL 8.4-10.2 hnwd=813) EGFR (BEAKER) (test 150 mL/min/1.73 sq m ESTIMATED GFR IS NOT xyfp=5278) ACCURATE CREATININE CLEARANCE IN PREDICTING GLOMERULAR FILTRATION RATE. ESTIMATED GFR IS NOT APPLICABLE FOR DIALYSIS PATIENTS. URINE [id number] 09:56:00 Test Item Value Reference Range Comments CULTURE (BEAKER) (test kfum=4907) <10,000 col/mL skin marilee COMPREHENSIVE METABOLIC [id number] 08:49:00 Test Item Value Reference Range Comments TOTAL PROTEIN (BEAKER) 7.3 gm/dL 6.0-8.3 (test xuou=536) ALBUMIN (BEAKER) (test 3.3 g/dL 3.5-5.0 fywp=8669) ALKALINE PHOSPHATASE 89 U/L 40-150 (BEAKER) (test egjm=395) BILIRUBIN TOTAL (BEAKER) 1.4 mg/dL 0.2-1.2 (test naks=389) SODIUM (BEAKER) (test 137 meq/L 136-145 cfqr=117) POTASSIUM (BEAKER) (test 3.7 meq/L 3.5-5.1 hkuv=771) CHLORIDE (BEAKER) (test 108 meq/L 98-107 axoq=437) CO2 (BEAKER) (test 17 meq/L 22-29 fmxe=837) BLOOD UREA NITROGEN 12 mg/dL 7-21 (BEAKER) (test ndki=724) CREATININE (BEAKER) (test 0.78 mg/dL 0.57-1.25 epbq=886) GLUCOSE RANDOM (BEAKER) 119 mg/dL 70-105 (test cuay=391) CALCIUM (BEAKER) (test 8.6 mg/dL 8.4-10.2 jcyi=151) AST (SGOT) (BEAKER) (test 13 U/L 5-34 dguh=341) ALT (SGPT) (BEAKER) (test 28 U/L 6-55 ykua=349) EGFR (BEAKER) (test 141 mL/min/1.73 sq ESTIMATED GFR IS NOT brza=6442) m ACCURATE CREATININE CLEARANCE IN PREDICTING GLOMERULAR FILTRATION RATE. ESTIMATED GFR IS NOT APPLICABLE FOR DIALYSIS PATIENTS. CBC W/PLT COUNT & AUTO [id number] 08:46:00 Test Item Value Reference Range Comments WHITE BLOOD CELL COUNT (BEAKER) (test iops=684) 9.4 K/ L 4.0-10.0 RED BLOOD CELL COUNT (BEAKER) (test eddn=966) 4.79 M/ L 4.20-5.80 HEMOGLOBIN (BEAKER) (test ktgh=060) 12.8 GM/DL 13.0-16.8 HEMATOCRIT (BEAKER) (test lvff=576) 40.0 % 40.0-50.0 MEAN CORPUSCULAR VOLUME (BEAKER) (test mkgg=960) 83.4 fL 82.0-98.0 MEAN CORPUSCULAR HEMOGLOBIN (BEAKER) (test 26.7 pg 27.0-33.0 mpzi=339) MEAN CORPUSCULAR HEMOGLOBIN CONC (BEAKER) (test 32.0 GM/DL 32.0-36.0 eyon=564) RED CELL DISTRIBUTION WIDTH (BEAKER) (test 18.2 % 10.3-14.2 vkpv=792) PLATELET COUNT (BEAKER) (test slfh=713) 313 K/CU MM 150-430 MEAN PLATELET VOLUME (BEAKER) (test vglj=274) 8.6 fL 6.5-10.5 NUCLEATED RED BLOOD CELLS (BEAKER) (test 0 /100 WBC 0-0 qdmy=918) NEUTROPHILS RELATIVE PERCENT (BEAKER) (test 70 % prgs=740) LYMPHOCYTES RELATIVE PERCENT (BEAKER) (test 16 % dwtg=457) MONOCYTES RELATIVE PERCENT (BEAKER) (test 12 % uxgm=048) EOSINOPHILS RELATIVE PERCENT (BEAKER) (test 1 % xfav=626) BASOPHILS RELATIVE PERCENT (BEAKER) (test 1 % kuio=056) NEUTROPHILS ABSOLUTE COUNT (BEAKER) (test 6.54 K/ L 1.80-8.00 zrno=335) LYMPHOCYTES ABSOLUTE COUNT (BEAKER) (test 1.50 K/ L 1.48-4.50 ncut=874) MONOCYTES ABSOLUTE COUNT (BEAKER) (test 1.13 K/ L 0.00-1.30 lbke=636) EOSINOPHILS ABSOLUTE COUNT (BEAKER) (test 0.13 K/ L 0.00-0.50 scxn=528) BASOPHILS ABSOLUTE COUNT (BEAKER) (test 0.06 K/ L 0.00-0.20 hlyo=597) 0.00URINALYSIS W/ [id number] 20:36:00 Test Item Value Reference Range Comments COLOR (BEAKER) (test fhar=356) Yellow CLARITY (BEAKER) (test kcxk=534) Hazy SPECIFIC GRAVITY UA (BEAKER) (test amja=520) 1.012 1.001-1.035 PH UA (BEAKER) (test pktu=307) 5.5 5.0-8.0 PROTEIN UA (BEAKER) (test lrtl=800) 100 mg/dL Negative GLUCOSE UA (BEAKER) (test nbik=796) Negative Negative KETONES UA (BEAKER) (test uzjp=105) Negative Negative BILIRUBIN UA (BEAKER) (test tnwf=855) Negative Negative BLOOD UA (BEAKER) (test rqvs=068) Moderate Negative NITRITE UA (BEAKER) (test dpca=288) Negative Negative LEUKOCYTE ESTERASE UA (BEAKER) (test dxus=885) Large Negative UROBILINOGEN UA (BEAKER) (test uflw=382) 3.0 mg/dL 0.2-1.0 RBC UA (BEAKER) (test bmal=146) 19 /HPF WBC UA (BEAKER) (test czeo=867) 182 /HPF SOURCE(BEAKER) (test iwdj=3762) BASIC METABOLIC [id number] 17:00:00 Test Item Value Reference Range Comments SODIUM (BEAKER) (test 140 meq/L 136-145 jlnn=565) POTASSIUM (BEAKER) (test 3.7 meq/L 3.5-5.1 ogoo=880) CHLORIDE (BEAKER) (test 112 meq/L 98-107 lfqk=382) CO2 (BEAKER) (test 17 meq/L 22-29 grns=665) BLOOD UREA NITROGEN 23 mg/dL 7-21 (BEAKER) (test nlsx=911) CREATININE (BEAKER) (test 1.00 mg/dL 0.57-1.25 wkpl=391) GLUCOSE RANDOM (BEAKER) 102 mg/dL 70-105 (test eqqn=420) CALCIUM (BEAKER) (test 8.7 mg/dL 8.4-10.2 opbz=168) EGFR (BEAKER) (test 106 mL/min/1.73 sq m ESTIMATED GFR IS NOT ocyz=1485) ACCURATE CREATININE CLEARANCE IN PREDICTING GLOMERULAR FILTRATION RATE. ESTIMATED GFR IS NOT APPLICABLE FOR DIALYSIS PATIENTS. Specimen slightly ictericCBC W/PLT COUNT & AUTO [id number] 12:18 :00 Test Item Value Reference Range Comments WHITE BLOOD CELL COUNT (BEAKER) (test djtm=026) 16.4 K/ L 4.0-10.0 RED BLOOD CELL COUNT (BEAKER) (test pyml=000) 5.22 M/ L 4.20-5.80 HEMOGLOBIN (BEAKER) (test ckvb=542) 14.4 GM/DL 13.0-16.8 HEMATOCRIT (BEAKER) (test ieze=900) 42.9 % 40.0-50.0 MEAN CORPUSCULAR VOLUME (BEAKER) (test zxqz=874) 82.2 fL 82.0-98.0 MEAN CORPUSCULAR HEMOGLOBIN (BEAKER) (test 27.5 pg 27.0-33.0 zamu=571) MEAN CORPUSCULAR HEMOGLOBIN CONC (BEAKER) (test 33.5 GM/DL 32.0-36.0 laap=905) RED CELL DISTRIBUTION WIDTH (BEAKER) (test 16.2 % 10.3-14.2 spnd=837) PLATELET COUNT (BEAKER) (test vbtx=511) 329 K/CU MM 150-430 MEAN PLATELET VOLUME (BEAKER) (test cqzp=121) 8.2 fL 6.5-10.5 NUCLEATED RED BLOOD CELLS (BEAKER) (test 0 /100 WBC 0-0 gpvw=293) NEUTROPHILS RELATIVE PERCENT (BEAKER) (test 83 % syfo=419) LYMPHOCYTES RELATIVE PERCENT (BEAKER) (test 7 % uqwo=751) MONOCYTES RELATIVE PERCENT (BEAKER) (test 9 % epyw=199) EOSINOPHILS RELATIVE PERCENT (BEAKER) (test 0 % ifgb=128) BASOPHILS RELATIVE PERCENT (BEAKER) (test 0 % vpux=521) NEUTROPHILS ABSOLUTE COUNT (BEAKER) (test 1.62 K/ L 1.80-8.00 owat=785) LYMPHOCYTES ABSOLUTE COUNT (BEAKER) (test 1.15 K/ L 1.48-4.50 mdes=508) MONOCYTES ABSOLUTE COUNT (BEAKER) (test 1.56 K/ L 0.00-1.30 putm=641) EOSINOPHILS ABSOLUTE COUNT (BEAKER) (test 0.01 K/ L 0.00-0.50 oeps=988) BASOPHILS ABSOLUTE COUNT (BEAKER) (test 0.02 K/ L 0.00-0.20 rusp=750) (MANUAL DIFFERENTIAL)2016-12-23 12:18:00 Test Item Value Reference Range Comments TOTAL COUNTED (BEAKER) (test conm=3208) WBC MORPHOLOGY (BEAKER) (test kaoy=343) Normal PLT MORPHOLOGY (BEAKER) (test oexw=900) Normal RBC MORPHOLOGY (BEAKER) (test kmfl=150) Normal
--- NOTE | 2018-09-03 13:57 | RAD REPORT ---
EXAM DESCRIPTION: CT - Head C Spine Mpr Wo Con - 09/03/2018 1:44 pm CLINICAL HISTORY: Head and neck injury status post fall. Head and neck pain COMPARISON: 2018 TECHNIQUE: Computed axial tomography of the head and cervical spine was obtained. Sagittal and coronal reconstruction was performed. All CT scans are performed using dose optimization technique as appropriate and may include automated exposure control or mA/KV adjustment according to patient size. FINDINGS: Ventricular shunts remain in place. Ventricles are extremely small unchanged from the prio r exam. Congenital brain anomalies noted. An intracranial bleed is not seen. An extra-axial fluid collection is not noted.Fluid within the visu alized sinuses and mastoids is not seen A cervical fracture is not visualized. No dislocation is noted. Loss of the normal lordosis may be se condary to muscle spasm. IMPRESSION: No acute intracranial abnormality is seen. A cervical fracture is not visualized. If the patient continues to have symptoms to suggest intracra nial /spinal cord pathology then MRI would be recommended
--- NOTE | 2018-09-03 14:40 | EDPHYS ---
Physician Documentation [facility] Name: Roland Feldman Jr Age: 33 yrs Sex: Male : 1985 Arrival Date: 09/03/2018 Time: 12:42 Bed 16 Private MD: ELBERT FLEMING ED Physician Sidney Hook HPI: 09/03 14:06 This 33 yrs old Black Male presents to ER via EMS with complaints of Fall Injury. pm1 14:06 Details of fall: The patient fell from seated position, out of a chair, in the shower, pm1 while transferring. Onset: The symptoms/episode began/occurred just prior to arrival. Associated injuries: The patient sustained injury to the head, neck injury, pain. The patient has experienced similar episodes in the past, multiple times. The patient has not recently seen a physician. Patient currently living in long term. Patient was taking a shower with assistance from long term staff. Patient transferring from shower chair to wheelchair and he slid down in the seat and hit the back of head on the shower chair. No LOC. No vomiting. Patient reported some initial buttocks pain but that has resolved. Historical: - Allergies: 13:40 Amoxicillin; bp 13:40 Bactrim; bp 13:40 Ciprofloxacin; bp 13:40 CLAVULANIC ACID; bp 13:40 Doxycycline; bp 13:40 Levofloxacin; bp 13:40 Morphine; bp 13:40 Toradol; bp 13:40 TRIMETHOPRIM; bp 13:40 Vancomycin; bp 13:40 Zofran; bp - Home Meds: 13:40 Celexa 20 mg Oral tab 1 tab once daily [Active]; fentanyl 25 mcg/hr Topical pt72 1 bp patch every 72 hours [Active]; Pepcid 20 mg oral tab 1 tab once daily [Active]; Percocet 10-325 mg Oral tab 1 tab every 6 hours [Active]; Reglan 10 mg Oral tab 1 tab once daily [Active]; Wellbutrin SR 150 mg Oral TbER 1 tab 2 times per day [Active]; - PMHx: 13:40 Asthma; Cerebral Palsy; cluster headaches; decubitus ulcers on feet; GERD; bp Hydrocephalus; Hypertension; spina bifida; - Immunization history:: Adult Immunizations up to date. - Social history:: Smoking status: Patient/guardian denies using tobacco. - Ebola Screening: : Patient negative for fever greater than or equal to 101.5 degrees Fahrenheit, and additional compatible Ebola Virus Disease symptoms Patient denies exposure to infectious person Patient denies travel to an Ebola-affected area in the 21 days before illness onset No symptoms or risks identified at this time. ROS: 14:06 Constitutional: Negative for fever, chills, and weight loss, Eyes: Negative for injury, pm1 pain, redness, and discharge, ENT: Negative for injury, pain, and discharge. 14:06 Cardiovascular: Negative for chest pain, palpitations, and edema, Respiratory: Negative for shortness of breath, cough, wheezing, and pleuritic chest pain, Abdomen/GI: Negative for abdominal pain, nausea, vomiting, diarrhea, and constipation, Back: Negative for injury and pain, : Negative for injury, bleeding, discharge, and swelling, MS/Extremity: Negative for injury and deformity, Skin: Negative for injury, rash, and discoloration. 14:06 Neck: Positive for pain at rest, Negative for stiffness. 14:06 Neuro: Positive for headache, Negative for dizziness, loss of consciousness, numbness, tingling, weakness. Exam: 14:06 Constitutional: This is a well developed, well nourished patient who is awake, alert, pm1 and in no acute distress. Head/Face: Normocephalic, atraumatic. Eyes: Pupils equal round and reactive to light, extra-ocular motions intact. Lids and lashes normal. Conjunctiva and sclera are non-icteric and not injected. Cornea within normal limits. Periorbital areas with no swelling, redness, or edema. ENT: Nares patent. No nasal discharge, no septal abnormalities noted. Tympanic membranes are normal and external auditory canals are clear. Oropharynx with no redness, swelling, or masses, exudates, or evidence of obstruction, uvula midline. Mucous membranes moist. Neck: Trachea midline, no thyromegaly or masses palpated, and no cervical lymphadenopathy. Supple, full range of motion without nuchal rigidity, or vertebral point tenderness. No Meningismus. Chest/axilla: Normal chest wall appearance and motion. Nontender with no deformity. No lesions are appreciated. Cardiovascular: Regular rate and rhythm with a normal S1 and S2. No gallops, murmurs, or rubs. Normal PMI, no JVD. No pulse deficits. Respiratory: Lungs have equal breath sounds bilaterally, clear to auscultation and percussion. No rales, rhonchi or wheezes noted. No increased work of breathing, no retractions or nasal flaring. Abdomen/GI: Soft, non-tender, with normal bowel sounds. No distension or tympany. No guarding or rebound. No evidence of tenderness throughout. Back: No spinal tenderness. No costovertebral tenderness. Full range of motion. Skin: Warm, dry with normal turgor. Normal color with no rashes, no lesions, and no evidence of cellulitis. MS/ Extremity: Pulses equal, no cyanosis. Neurovascular intact. Full, normal range of motion. 14:06 Neuro: Orientation: is normal, Sensation: is normal, no obvious gross deficits. Vital Signs: 13:02 BP 127 / 96; Pulse 74; Resp 14; Temp 98; Pulse Ox 100% ; Weight 81.65 kg; bp 14:54 BP 131 / 89; Pulse 71; Resp 14; Pulse Ox 99% ; bp MDM: 13:09 Patient medically screened. pm1 14:37 Data reviewed: vital signs. Data interpreted: Pulse oximetry: on room air is 100 %. pm1 Interpretation: normal. Counseling: I had a detailed discussion with the patient and/or guardian regarding: the historical points, exam findings, and any diagnostic results supporting the discharge/admit diagnosis, radiology results, the need for outpatient follow up, to return to the emergency department if symptoms worsen or persist or if there are any questions or concerns that arise at home. 14:40 ED course: Patient requested pain medication in the ER. Discussed pain management with pm1 Dr. Hook. Recommended patient to be discharged and receive pain medication, Percocet and fentanyl at long term. Its stronger medication than what the ER can discharge as a prescription. 09/03 13:26 Order name: CT Head C Spine; Complete Time: 14:06 pm1 Administered Medications: No medications were administered Disposition: 09/04 07:14 Co-signature as Attending Physician, Sidney Hook MD Available for consultation at ps1 all times. . Disposition: 09/03/18 14:39 Discharged to Home. Impression: Superficial injury of head, Headache. - Condition is Stable. - Discharge Instructions: Head Injury, Adult. - Medication Reconciliation Form, Thank You Letter, Prescription Opioid Use form. - Follow up: Emergency Department; When: As needed; Reason: Worsening of condition. Follow up: Private Physician; When: 2 - 3 days; Reason: Recheck today's complaints, Continuance of care, Re-evaluation by your physician. - Problem is new. - Symptoms have improved. Signatures: Dispatcher [employer] EDMS Dustin Horton DAIRY EQUIPMENT MECHANIC DAIRY EQUIPMENT MECHANIC pm1 Holland Hays RN RN bp Sidney Hook MD MD ps1 Corrections: (The following items were deleted from the chart) 09/03 15:27 14:39 09/03/2018 14:39 Discharged to Home. Impression: Superficial injury of head; bp Headache. Condition is Stable. Forms are Medication Reconciliation Form, Thank You Letter, Antibiotic Education, Prescription Opioid Use. Follow up: Emergency Department; When: As needed; Reason: Worsening of condition. Follow up: Private Physician; When: 2 - 3 days; Reason: Recheck today's complaints, Continuance of care, Re-evaluation by your physician. Problem is new. Symptoms have improved. pm1
--- NOTE | 2018-09-03 14:40 | ER ---
Nurse's Notes [facility] Name: Roland Feldman Jr Age: 33 yrs Sex: Male : 1985 Arrival Date: 09/03/2018 Time: 12:42 Bed 16 Private MD: ELBERT FLEMING Diagnosis: Superficial injury of head;Headache Presentation: 09/03 13:02 Presenting complaint: EMS states: FALL FROM CHAIR ONTO BUTTOCKS. Transition of care: bp patient was received from another setting of care (long-term care facility), [facility]. Onset of symptoms was September 03, 2018 at 12:30. Risk Assessment: Do you want to hurt yourself or someone else? Patient reports no desire to harm self or others. Initial Sepsis Screen: Does the patient meet any 2 criteria? No. Patient's initial sepsis screen is negative. Does the patient have a suspected source of infection? No. Patient's initial sepsis screen is negative. Care prior to arrival: None. 13:02 Method Of Arrival: EMS: [facility] bp 13:02 Acuity: YUKI 4 bp Triage Assessment: 13:02 General: Appears in no apparent distress. comfortable, obese, Behavior is cooperative, bp appropriate for age, anxious. Pain: Complains of pain in head and back of neck. EENT: No deficits noted. Neuro: AT BASELINE. Cardiovascular: No deficits noted. Respiratory: Airway is patent Respiratory effort is even, unlabored, Respiratory pattern is regular, symmetrical. GI: No signs and/or symptoms were reported involving the gastrointestinal system. : [place] in place. Derm: No deficits noted. Musculoskeletal: Circulation, motion, and sensation intact. Range of motion: intact in all extremities. Historical: - Allergies: 13:40 Amoxicillin; bp 13:40 Bactrim; bp 13:40 Ciprofloxacin; bp 13:40 CLAVULANIC ACID; bp 13:40 Doxycycline; bp 13:40 Levofloxacin; bp 13:40 Morphine; bp 13:40 Toradol; bp 13:40 TRIMETHOPRIM; bp 13:40 Vancomycin; bp 13:40 Zofran; bp - Home Meds: 13:40 Celexa 20 mg Oral tab 1 tab once daily [Active]; fentanyl 25 mcg/hr Topical pt72 1 bp patch every 72 hours [Active]; Pepcid 20 mg oral tab 1 tab once daily [Active]; Percocet 10-325 mg Oral tab 1 tab every 6 hours [Active]; Reglan 10 mg Oral tab 1 tab once daily [Active]; Wellbutrin SR 150 mg Oral TbER 1 tab 2 times per day [Active]; - PMHx: 13:40 Asthma; Cerebral Palsy; cluster headaches; decubitus ulcers on feet; GERD; bp Hydrocephalus; Hypertension; spina bifida; - Immunization history:: Adult Immunizations up to date. - Social history:: Smoking status: Patient/guardian denies using tobacco. - Ebola Screening: : Patient negative for fever greater than or equal to 101.5 degrees Fahrenheit, and additional compatible Ebola Virus Disease symptoms Patient denies exposure to infectious person Patient denies travel to an Ebola-affected area in the 21 days before illness onset No symptoms or risks identified at this time. Screenin:05 Abuse screen: Denies threats or abuse. Denies injuries from another. Nutritional bp screening: No deficits noted. Tuberculosis screening: No symptoms or risk factors identified. Fall Risk Fall in past 12 months (25 points). No secondary diagnosis (0 pts). No IV (0 pts). Ambulatory Aid- None/Bed Rest/Nurse Assist (0 pts). Gait- Normal/Bed Rest/Wheelchair (0 pts) Mental Status- Oriented to own ability (0 pts). Total Smith Fall Scale indicates Low Risk Score (25-44 pts). Fall prevention measures have been instituted. Side Rails Up X 2 Placed close to Nursing Station Frequent Obs/Assesments occuring As available Patient and Family Educated on Fall Prevention Program and strategies. Assessment: 13:05 General: SEE TRIAGE NOTE. bp 14:19 Reassessment: PT RETURNED FROM [facility], NO ABNORMALITIES NOTED, PER PROVIDER. bp 14:54 Reassessment: PT D/C HOME, HEALTHCARE CONTACTED, TRANSPORT EN ROUTE. bp 15:27 Reassessment: PT [place] WITH HEALTHCARE TRANSPORT. bp Vital Signs: 13:02 BP 127 / 96; Pulse 74; Resp 14; Temp 98; Pulse Ox 100% ; Weight 81.65 kg; bp 14:54 BP 131 / 89; Pulse 71; Resp 14; Pulse Ox 99% ; bp ED Course: 12:42 Patient arrived in ED. rg4 12:43 Asiya Gamble MD is Private Physician. rg4 12:48 ELBERT FLEMING is Private Physician. rg4 12:53 Holland Hays, RN is Primary Nurse. bp 13:02 Arm band placed on. bp 13:03 Triage completed. bp 13:05 Patient has correct armband on for positive identification. Bed in low position. Call bp light in reach. Side rails up X2. 13:06 Dustin Horton NP is PHCP. pm1 13:06 Sidney Hook MD is Attending Physician. pm1 13:42 CT completed. Patient tolerated procedure well. Patient moved to CT via stretcher. jg6 Patient moved back from CT. 13:43 CT Head C Spine In Process Unspecified. EDMS 14:55 No provider procedures requiring assistance completed. Patient did not have IV access bp during this emergency room visit. Administered Medications: No medications were administered Outcome: 14:39 Discharge ordered by MD. pm1 15:27 Discharged to long-term. Transfer form completed. bp 15:27 Condition: stable 15:27 Discharge instructions given to patient, long-term, Instructed on discharge instructions, follow up and referral plans. Demonstrated understanding of instructions, follow-up care. 15:27 Patient left the ED. bp Signatures: Dispatcher [employer] EDIN Dustin Horton NP METAL SMELTER pm1 Kate Maguire rg4 Holland Hays, RN RN Shaylee Moralesg6
[2018-09-03 15:45] VITALS: TEMP 98
[2018-09-03 15:54] VITALS: BP 131/89; O2SAT 99
== END 2018-09-03 15:27 | disposition home or self-care (01) ==
LOC: ER 12:41
DX: S00.90XA Unspecified superficial injury of unspecified part of head, initial encounter (principal); W07.XXXA Fall from chair, initial encounter; Y93.E1 Activity, personal bathing and showering; Y92.9 Unspecified place or not applicable; Z88.1 Allergy status to other antibiotic agents; Z88.3 Allergy status to other anti-infective agents; Z88.5 Allergy status to narcotic agent; Z88.8 Allergy status to other drugs, medicaments and biological substances; I10 Essential (primary) hypertension; G80.9 Cerebral palsy, unspecified; Q05.9 Spina bifida, unspecified
CPT/HCPCS: 70450; 72125; 99284

== ENCOUNTER 2018-10-09 20:32 | Emergency (ER) | payer OTHER ==
--- OUTSIDE RECORDS SUMMARY | 2018-10-09 20:34 | XMS REPORT | Clinical Summary ---
:1985 Author Organization [employer] Address [address] [place] [address] Care Team Providers Name Role Phone Rishi [...] Not on file Results Not on fileafter 10/08/2017 Insurance Payer Benefit Plan / Group Subscriber ID Type Phone Address MEDICAID - MEDICAID MEDICAID [employer] xxxxxxxxx Medicaid MGD CARE Non-Contracted Advance Directives For more information, please contact:[facility] Vasquez[address], [place] [phone] Code Status Date Activated Date Inactivated Comments Full Code 12/23/2016 1:36 AM 12/25/2016 8:43 PM This code status was determined by: Patient
--- OUTSIDE RECORDS SUMMARY | 2018-10-09 20:38 | XMS REPORT | Continuity of Care Document ---
:1985 Author Organization Interface Problems Problem Status Onset Classification Date Comments Source Date Reported HEADACHE Active 05/22/[address] SHUNT Active 11/15/[address] ACUTE HEADACHE Active 11/15/[address] Pressure ulcer Active 10/05/19 Finding 10/08/2017 [...] Problem 11/22/[address] [facility] Asthma Resolved Problem 11/22/[address] [facility] Bronchitis Resolved Problem 11/22/[address] [facility] Cerebral palsy Resolved Problem 11/22/[address] [facility] Headache Active Problem 11/22/[address] [facility] Hydrocephalus Resolved Problem 11/22/[address] [facility] Osteomyelitis Resolved Problem 11/22/2017 [facility] HEADACHE Active [facility] Medications Medication Details Route Status Patient Ordering Order Source Instructions Provider Date Docusate Sodium 100 mg=1 cap, Active [place] 100 MG Oral PO, BID, 0 2017 Medical Capsule Refill(s) [place] Zosyn 0 Refill(s) Active [facility] 2017 [facility] celecoxib 200 200 mg=1 cap, Active 11/19[facility] [place] mg oral capsule PO, BID, 0 2018 Medical Refill(s) [place] ascorbic acid 500 mg=1 tab, Active 11/19[facility] [place] PO, BID, 0 2017 Medical Refill(s) [place] acetaminophen 1,000 mg=2 tab, Active 11/19[facility] [place] 500 mg oral PO, Q6Hnow, 0 2017 Medical tablet Refill(s) [place] Oxycodone 5 mg=1 tab, PO, Active 11/19[facility] [place] Hydrochloride 5 Q4H, PRN Pain 2018 Medical MG Oral Tablet Score 4-6, 0 Center Refill(s) zinc sulfate 220 mg=1 cap, Active 11/19[facility] [place] 220 mg oral PO, Daily, 0 2018 Medical capsule Refill(s) [place] multivitamin 1 tab, PO, Active 11/19[facility] [place] Daily, 0 2018 Medical Refill(s) [place] methocarbamol 1,000 mg=2 tab, Active 11/19[facility] [place] 500 mg oral PO, Q8H, 0 2018 Medical tablet Refill(s) [place] LORazepam 0.5 0.5 mg=1 tab, Active [place] mg oral tablet PO, Q8H, PRN 2018 Medical Anxiety, 0 Center Refill(s) Lidocaine 3 patch, TOP, Active [place] Hydrochloride Daily, Remove 2018 Medical 0.05 MG/MG after 12 hours, Center Transdermal 0 Refill(s) Patch [Lidoderm] Robaxin 1,000 mg, 2 No Longer [facility] tab, Route: PO, Active 2018 Medical [...] Ativan 0.5 mg, 1 tab, No Longer [facility] Route: PO, Drug Active 2018 Medical form: TAB, Q8H, Center Dosing Weight 127.027, kg, PRN Anxiety, Start date: 11/17/17 10:18:00 CDT, Duration: 7 day, Stop date: 11/24/17 10:17:00 CDTNotes: (Same as: Ativan) Trazodone 50 mg, 1 tab, No Longer [facility] Hydrochloride Route: PO, Drug Active 2018 [...] day. Oxycodone 10 mg, 2 tab, Inactive [facility] Hydrochloride 5 Route: PO, Drug 2018 Medical MG Oral Tablet form: TAB, Center ONCE, Dosing Weight 127.027, kg, Start date: 11/16/17 17:01:00 CDT, Stop date: 11/16/17 17:01:00 CDTNotes: (Same as: Roxicodone) Celebrex 200 mg, 1 cap, No Longer [facility] Route: PO, Drug Active 2018 Medical form: CAP, BID, [place] Dosing Weight 127.027, kg, Start date: 11/16/17 17:00:00 CDT, Duration: 30 day, Stop date: 12/16/17 9:00:00 CDTNotes: NSAID. Please check indication. Not for seizure. (Same As: CeleBREX) Vancomycin 1,500 mg, 250 No Longer [place] mL, Route: Active 2018 Medical IVPB, Drug Center form: INJ, [id number], Dosing Weight 127.27, kg, Start date: 11/16/17 16:00:00 CDT, Stop date: 11/21/17 8:00:00 CDT, ABX Indication: Skin/Soft Tissue InfectionNotes: TIME CRITICAL MEDICATION Same as: Vancocin-NS (premixed) Infusion rate 2001 mg: infuse over 2.5 hours Lidocaine 3 patch, Route: No Longer [facility] Hydrochloride TOP, Daily, Active 2017 Medical 0.05 MG/MG Drug form: [place] Transdermal FILM, Start Patch date: 11/16/17 [Lidoderm] 9:00:00 CDT, Duration: 7 day, Stop date: 11/22/17 9:00:00 CDT, Remove after 12 hoursNotes: Apply only once for up to 12 hours in a 24-hour period (12 hours on and 12 hours off). (Same as: Lidoderm) "Remove old patch before application of new patch" Phenergan 12.5 mg, 0.5 Inactive [place] mL, Route: 2018 [facility] IVPB, Drug Center form: INJ, ONCE, Dosing Weight 127.027, kg, Priority: NOW, Start date: 11/15/17 17:40:00 CDT, Stop date: 11/15/17 17:40:00 CDTNotes: Do not give IV push. (Same as: Phenergan) Dilaudid 0.5 mg, 0.25 Inactive [place] mL, Route: IVP, 2017 Medical Drug form: INJ, Center ONCE, Dosing Weight 127.027, kg, Priority: NOW, Start date: 11/15/17 17:40:00 CDT, Stop date: 11/15/17 17:40:00 CDTNotes: Same as Dilaudid Tramadol 100 mg, 2 tab, No Longer [facility] Route: PO, Drug Active 2017 Medical form: TAB, Center Q6Hnow, Dosing Weight 127.027, kg, Start date: 11/15/17 17:00:00 CDT, Duration: 30 day, Stop date: 12/15/17 11:00:00 CDTNotes: Not to exceed 400mg/day. (Same As: Ultram) gabapentin 600 mg, 2 cap, No Longer [facility] Route: PO, Drug Active 2017 Medical form: CAP, Center Q8Hnow, Dosing Weight 127.027, kg, Start date: 11/15/17 17:00:00 CDT, Stop date: 12/15/17 9:00:00 CDTNotes: (Same as: Neurontin) Acetaminophen 1,000 mg, 2 No Longer [facility] tab, Route: PO, Active 2017 Medical Drug form: TAB, Center Q6Hnow, Dosing Weight 127.027, kg, Start date: 11/15/17 17:00:00 CDT, Duration: 30 day, Stop date: 12/15/17 11:00:00 CDTNotes: Max acetaminophen 4000 mg/day (4 gm/day). (Same as: Tylenol Extra Strength) Robaxin 500 mg, 1 tab, No Longer [facility] Route: PO, Drug Active 2017 Medical form: TAB, TID, Center Dosing Weight 127.027, kg, Start date: 11/15/17 17:00:00 CDT, Duration: 30 day, Stop date: 12/15/17 13:00:00 CDTNotes: (Same as:Robaxin) Oxycodone 5 mg, 1 tab, No Longer [facility] Hydrochloride 5 Route: PO, Drug Active [...] CDT Phenergan 25 mg, 1 tab, Inactive [facility] Route: PO, Drug 2018 Medical form: [...] Docusate 100 mg, 1 cap, No Longer [facility] Route: PO, Drug Active 2018 Medical form: CAP, BID, Center Dosing Weight 127.27, kg, Start date: 11/15/17 9:00:00 CDT, Duration: 30 day, Stop date: 12/14/17 17:00:00 CDTNotes: (Same as: Colace) (Do Not Crush) Zinc Sulfate 220 mg, 1 cap, No Longer [place] Route: PO, Drug Active 2018 Medical form: CAP, Center Daily, Dosing Weight 127.27, kg, Start date: 11/15/17 9:00:00 CDT, Duration: 30 day, Stop date: 12/14/17 9:00:00 CDTNotes: (Zinc sulfate capsule) - 220 mg Zinc sulfate=50 mg elemental zinc Same as Zinc Sulfate ascorbic acid 500 mg, 1 tab, No Longer [place] Route: PO, Drug Active 2017 Medical form: TAB, BID, Center Dosing Weight 127.27, kg, Start date: 11/15/17 9:00:00 CDT, Duration: 30 day, Stop date: 12/14/17 17:00:00 CDTNotes: (Same as: Vitamin C) multivitamin 1 tab, Route: No Longer [place] PO, Drug Form: Active 2018 Medical TAB, Dosing Center Weight 127.27, kg, Daily, Start date: 11/15/17 9:00:00 CDT, Duration: 30 day, Stop date: 12/14/17 9:00:00 CDTNotes: (Same as:Thera) WASTE: F/P - Black; E - Municipal Trash Bin Take with food. Naproxen 500 mg, 1 tab, Inactive [place] Route: PO, Drug 2017 Medical form: TAB, Center [id number], Dosing Weight 127.27, kg, Start date: 11/15/17 2:00:00 CDT, Duration: 30 day, Stop date: 12/14/17 14:00:00 CDTNotes: (Same as: Naprosyn) Take with food. Zosyn 3.375 gm, No Longer [facility] Route: IVPB, Active 2018 Medical Drug [...] Active 2017 Medical Drug form: INJ, Center [id number], Dosing Weight 127.27, kg, Consider for obese [...] Stop date: 12/15/17 1:45:00 CDTNotes: (Same as: [place] 325/5) Do not exceed 4gm/day of acetaminophen. [...] Bin Sodium Chloride 1,000 mL, 1000 Inactive [facility] 0.9% (Bolus) IV ml/hr, Infuse 2018 [...] Extra Strength) Rocephin 1 gm, Route: Inactive 05/04[facility] IVP, Drug form: 2018 Medical PDR/INJ, ONCE, Center Dosing Weight 127.273, kg, Priority: STAT, Start date: 11/14/17 21:21:00 CDT, Stop date: 11/14/17 21:21:00 CDT, ABX Indication: Urinary Tract InfectionNotes: (Same As: Rocephin). MEDICATION WASTE Product Size: 1000 mg Product Wasted: _0__ mg Morphine 4 mg, Route: Inactive [facility] IVP, ONCE, 2018 Medical Dosing Weight Center 127.273, kg, Priority: STAT, Start date: 11/14/17 19:05:00 CDT, Stop date: 11/14/17 19:05:00 CDT Benadryl 25 mg, 0.5 mL, Inactive [facility] Route: IVP, 2017 Medical Drug form: INJ, Center ONCE, Dosing Weight 127.273, kg, Priority: STAT, Start date: 11/14/17 18:14:00 CDT, Stop date: 11/14/17 18:14:00 CDTNotes: (Same as: Benadryl) Benadryl 50 mg, 2 cap, Inactive 11/14[facility] Route: PO, Drug 2017 Medical form: CAP, Center ONCE, Dosing Weight 127.273, kg, Priority: STAT, Start date: 11/14/17 17:56:00 CDT, Stop date: 11/14/17 17:56:00 CDTNotes: (Same as: Benadryl) Morphine 4 mg, 1 mL, Inactive 11/14[facility] Route: IVP, 2017 Medical Drug form: [...] For Pain [place] Oxycodone FOUR TIMES Active [facility] St. Hcl/Acetaminoph DAILY 2016 [facility] [place] Meropenem Q8H Active [facility] St[facility] 2013 [facility] [place] Collagenase DAILY Active [facility] 2013 [facility] [place] Ciprofloxacin Q12H Active [facility] St. 400mg Iv 2013 [facility] [place] Amikacin Sulf DAILY Active [facility] 2013 [facility] [place] Linezolid TWICE DAILY Inactive [facility] St[facility] 2013 [facility] [place] Allergies, Adverse Reactions, Alerts Substance Category Reaction Severity Reaction Status Date Comments Source type Reported levofloxacin Hives Moderate Allergy to Active [facility] Substance 8 [facility] [place] sulfamethoxa Hives Moderate Allergy to Active [facility] St. zole Substance 8 [facility] [place] ketorolac Nausea/Vo Allergy to Active [facility] St. tromethamine [place] Substance 8 [facility] [place] vancomycin Hives Allergy to Active [facility] St. Substance 8 [facility] [place] ondansetron Nausea/Vo Mild Propensity Active [facility] St. [place] to adverse 8 [facility] [place] ciprofloxaci Nausea/Vo Propensity Active [facility] St. n [place] to adverse 8 [facility] [place] doxycycline Nausea/Vo Propensity Active [facility] St. [place] to adverse 8 [facility] [place] morphine Assertion Drug Active [facility] amoxicillin Assertion Drug Active [facility] [...] WITHOUT CONTRAST -- OUTSIDE CONSULT 05/22 - [facility] justina e Consult - Medical Consult CT This report was dictated by a Foreign Languages Professor/Fellow. I have personally reviewed the images as Center well as the Resident's interpretation and agree with the findings. 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 205 images. Imaging was performed at [place] [facility] on 05/22/2018. IV contrast: None. [...] with the preliminary report by the radiology nurse. CHEM PANEL B/C Ratio 17 6 - 25 11/[address] CHEM PANEL Globulin 4.3 g/dL 2.7 - 4.2 11/[address] CHEM PANEL A/G Ratio 0.7 0.7 - 1.6 11/[address] CHEM PANEL AGAP 14.4 meq/L 10.0 - 11/19 [facility] 20.0 [facility] CHEM PANEL eGFR 113 11/19 Result Comment: The eGFR is calculated using the CKD-EPI formula. In most young, healthy individuals the eGFR will be >90 mL/ min/1.73m2. The eGFR declines with age. An eGFR of 60-89 may be normal in [facility] mL/min/1.7 some populations, particularly the elderly, for whom the CKD-EPI formula has not been extensively validated. Use of the eGFR is not recommended in the following populations: [address] Individuals with unstable creatinine concentrations, including [...] Phos 76 unit/L 39 - 136 05/ [address] CHEM PANEL ALT 35 unit/L 0 - 65 / [address] CHEM PANEL Albumin Lvl 2.8 g/dL 3.5 - 5.0 / [address] CHEM PANEL Total 7.1 g/dL 6.4 - 8.4 11/19 [facility] Protein [address] CHEM PANEL Calcium Lvl 8.7 mg/dL 8.5 - 10.5 11/[address] CHEM PANEL AST 18 unit/L 0 - 37 / [address] CHEM PANEL Bili Total 0.3 mg/dL 0.2 - 1.3 11/[address] CHEM PANEL Potassium 4.4 meq/L 3.5 - 5.1 11/19 [facility] [address] [place] [address] CHEM PANEL Chloride Lvl 109 meq/L 95 - 109 11/[address] CHEM PANEL CO2 23 meq/L 24 - 32 / [address] CHEM PANEL Glucose Lvl 114 mg/dL 70 - 99 11/[address] CHEM PANEL Creatinine 1.01 mg/dL 0.50 - 11/19 [facility] 1.40 /[address] [place] [address] CHEM PANEL BUN 17 mg/dL 7 - 22 11/[address] CHEM PANEL Sodium Lvl 142 meq/L 135 - 145 11/[address] HEMATOLOGY Basophils 0.6 % 0.0 - 1.0 / [address] HEMATOLOGY Segs-Bands # 4.8 K/CMM 1.5 - 8.1 11/[address] HEMATOLOGY Monocytes # 0.7 K/CMM 0.0 - 0.8 / [address] HEMATOLOGY Lymphocytes 1.9 K/CMM 1.0 - 5.5 / [address] HEMATOLOGY Monocytes 9.4 % 2.0 - 12.0 / [address] HEMATOLOGY Eosinophils 0.2 K/CMM 0.0 - 0.5 11/19 [facility] # /2017 [facility] HEMATOLOGY Eosinophils 2.9 % 0.0 - 4.0 11/19 [facility] HEMATOLOGY Segs 62.2 % 45.0 - 11/19 [place] 75.0 [facility] HEMATOLOGY Lymphocytes 24.9 % 20.0 - 11/19 [place] 40.0 [facility] HEMATOLOGY MCH 27.5 pg 27.0 - 11/19 [place] 31.0 [facility] HEMATOLOGY MCV 85.3 fL 80.0 - 11/19 [place] 94.0 [facility] HEMATOLOGY Hct 43.9 % 42.0 - 11/19 [place] 54.0 [facility] HEMATOLOGY Hgb 14.2 g/dL 14.0 - 11/19 18.0 [facility] HEMATOLOGY WBC 7.7 K/CMM 3.7 - 10.4 11/19 [facility] HEMATOLOGY RBC 5.15 M/CMM 4.70 - 11/19 [place] 6.10 [facility] HEMATOLOGY MPV 8.4 fL 7.4 - 10.4 11/19 [facility] HEMATOLOGY MCHC 32.3 g/dL 32.0 - 11/19 [place] 36.0 [facility] HEMATOLOGY RDW 17.3 % 11.5 - 11/19 14.5 [facility] HEMATOLOGY Platelet 317 K/CMM 133 - 450 11/[address] CHEM PANEL Globulin 4.4 g/dL 2.7 - 4.2 11/18 2017 [facility] CHEM PANEL A/G Ratio 0.6 0.7 - 1.6 11/18 [facility] CHEM PANEL B/C Ratio 17 6 - 25 11/18 [facility] CHEM PANEL AGAP 11.3 meq/L 10.0 - 11/18 20.0 [facility] CHEM PANEL eGFR 134 11/18 Result Comment: The eGFR is calculated using the CKD-EPI formula. In most young, healthy individuals the eGFR will be >90 mL/ min/1.73m2. The eGFR declines with age. An eGFR of 60-89 may be normal in [facility] mL/min/1.7 some populations, particularly the elderly, for whom the CKD-EPI formula has not been extensively validated. Use of the eGFR is not recommended in the following populations: [address] Individuals with unstable creatinine concentrations, including [...] PANEL Creatinine 0.84 mg/dL 0.50 - 11/18 [facility] Lvl 1.40 [facility] CHEM PANEL Sodium Lvl 142 meq/L 135 - 145 11/[address] CHEM PANEL Glucose Lvl 99 mg/dL 70 - 99 11/[address] CHEM PANEL BUN 14 mg/dL 7 - 22 11/[address] CHEM PANEL Alk Phos 79 unit/L 39 - 136 11/[address] CHEM PANEL Bili Total 0.3 mg/dL 0.2 - 1.3 11/[address] CHEM PANEL AST 14 unit/L 0 - 37 11/[address] CHEM PANEL ALT 43 unit/L 0 - 65 11/[address] CHEM PANEL Total 7.1 g/dL 6.4 - 8.4 11/18 [facility] Protein [address] CHEM PANEL Albumin Lvl 2.7 g/dL 3.5 - 5.0 11/[address] CHEM PANEL Calcium Lvl 9.2 mg/dL 8.5 - 10.5 11/[address] CHEM PANEL CO2 21 meq/L 24 - 32 11/[address] CHEM PANEL Potassium 4.3 meq/L 3.5 - 5.1 11/18 [facility] Lvl [address] [place] [address] CHEM PANEL Chloride Lvl 114 meq/L 95 - 109 11/[address] HEMATOLOGY MCHC 32.5 g/dL 32.0 - 11/18 [facility] 36.0 [facility] HEMATOLOGY RDW 17.5 % 11.5 - 11/18 [facility] 14.5 [facility] HEMATOLOGY Platelet 400 K/CMM 133 - 450 11/[address] HEMATOLOGY MPV 8.5 fL 7.4 - 10.4 11/[address] Center HEMATOLOGY WBC 6.6 K/CMM 3.7 - 10.4 11/[address] [place] [address] HEMATOLOGY RBC 5.17 M/CMM 4.70 - 11/18 [facility] 6.10 [facility] HEMATOLOGY MCV 86.1 fL 80.0 - 11/18 [facility] 94.0 [facility] HEMATOLOGY Hct 44.5 % 42.0 - 11/18 [facility] 54.0 [facility] HEMATOLOGY MCH 28.0 pg 27.0 - 11/18 [facility] 31.0 [facility] HEMATOLOGY Hgb 14.5 g/dL 14.0 - 11/18 [facility] 18.0 [facility] HEMATOLOGY Lymphocytes 1.7 K/CMM 1.0 - 5.5 11/18 [facility] HEMATOLOGY Monocytes # 0.7 K/CMM 0.0 - 0.8 11/[address] HEMATOLOGY Eosinophils 0.2 K/CMM 0.0 - 0.5 11/18 [facility] HEMATOLOGY Lymphocytes 26.1 % 20.0 - 11/18 [facility] 40.0 [facility] HEMATOLOGY Segs 59.3 % 45.0 - 11/18 [facility] 75.0 [facility] HEMATOLOGY Basophils 0.8 % 0.0 - 1.0 11/[address] HEMATOLOGY Monocytes 10.5 % 2.0 - 12.0 11/[address] HEMATOLOGY Eosinophils 3.3 % 0.0 - 4.0 11/[address] HEMATOLOGY Segs-Bands # 3.9 K/CMM 1.5 - 8.1 11/[address] TOXICOLOGY Vanco Tr TND 15:30pm 11/[address] TOXICOLOGY Vanco Tr 9.1 ug/ml 11/[address] CHEM PANEL Glucose Lvl 74 mg/dL 70 - 99 11/[address] CHEM PANEL BUN 12 mg/dL 7 - 22 11/[address] CHEM PANEL Creatinine 0.75 mg/dL 0.50 - 11/17 [facility] Lvl 1.40 [facility] CHEM PANEL eGFR 140 11/17 Result Comment: The eGFR is calculated using the CKD-EPI formula. In most young, healthy individuals the eGFR will be >90 mL/ min/1.73m2. The eGFR declines with age. An eGFR of 60-89 may be normal in [facility] mL/min/1. some populations, particularly the elderly, for whom the CKD-EPI formula has not been extensively validated. Use of the eGFR is not recommended in the following populations: [address] Individuals with unstable creatinine concentrations, including [...] Lvl 2.9 g/dL 3.5 - 5.0 11/[address] CHEM PANEL Globulin 4.4 g/dL 2.7 - 4.2 11/[address] CHEM PANEL A/G Ratio 0.7 0.7 - 1.6 11/[address] CHEM PANEL Bili Total 0.4 mg/dL 0.2 - 1.3 11/[address] CHEM PANEL Alk Phos 71 unit/L 39 - 136 11/[address] CHEM PANEL AST 15 unit/L 0 - 37 11/[address] CHEM PANEL ALT 28 unit/L 0 - 65 11/[address] CHEM PANEL Potassium 4.4 meq/L 3.5 - 5.1 11/17 [facility] [address] [place] [address] CHEM PANEL Sodium Lvl 147 meq/L 135 - 145 11/[address] CHEM PANEL CO2 25 meq/L 24 - 32 11/[address] CHEM PANEL Chloride Lvl 114 meq/L 95 - 109 / [address] CHEM PANEL B/C Ratio 16 6 - 25 11/[address] CHEM PANEL Calcium Lvl 8.7 mg/dL 8.5 - 10.5 11/[address] CHEM PANEL AGAP 12.4 meq/L 10.0 - 05/ [facility] 20.0 [facility] CHEM PANEL Total 7.3 g/dL 6.4 - 8.4 11/17 [facility] [place] Protein [address] HEMATOLOGY Platelet 345 K/CMM 133 - 450 05 [facility] HEMATOLOGY MPV 8.7 fL 7.4 - 10.4 11/17 [facility] HEMATOLOGY WBC 6.9 K/CMM 3.7 - 10.4 11/17 [facility] HEMATOLOGY RBC 5.30 M/CMM 4.70 - 11/17 6.10 [facility] HEMATOLOGY MCHC 32.8 g/dL 32.0 - 11/17 36.0 [facility] HEMATOLOGY MCH 27.9 pg 27.0 - 11/17 31.0 [facility] HEMATOLOGY Hgb 14.8 g/dL 14.0 - 11/17 18.0 [facility] HEMATOLOGY MCV 85.0 fL 80.0 - 11/17 [facility] 94.0 [facility] HEMATOLOGY Hct 45.1 % 42.0 - 11/17 54.0 [facility] HEMATOLOGY RDW 17.5 % 11.5 - 11/17 14.5 [facility] HEMATOLOGY Eosinophils 0.2 K/CMM 0.0 - 0.5 11/17 [facility] # [facility] HEMATOLOGY Lymphocytes 2.0 K/CMM 1.0 - 5.5 11/17 [facility] HEMATOLOGY Monocytes # 0.7 K/CMM 0.0 - 0.8 05 [facility] HEMATOLOGY Eosinophils 2.4 % 0.0 - 4.0 11/17 [facility] HEMATOLOGY Basophils 0.6 % 0.0 - 1.0 11/[address] [place] [address] HEMATOLOGY Segs-Bands # 4.0 K/CMM 1.5 - 8.1 11/17 [facility] HEMATOLOGY Monocytes 10.4 % 2.0 - 12.0 11/17 [facility] HEMATOLOGY RBC Morph Normal 11/17 [facility] (11/17/17 2:07 AM) [place] HEMATOLOGY Segs 58.1 % 45.0 - 11/17 75.0 [facility] HEMATOLOGY Plt Morph Normal 11/17 [facility] (11/17/17 2:07 AM) [place] HEMATOLOGY Lymphocytes 28.5 % 20.0 - 11/17 [place] 40.0 [facility] HEMATOLOGY Basophils # 0.1 K/CMM 0.0 - 0.2 11/16 [facility] HEMATOLOGY Polychrom Moderate None Seen 11/16 [facility] [place] (11/16/17 11:07 AM) TOXICOLOGY Vanco Tr TND * 11/[address] TOXICOLOGY Vanco Tr 22.3 ug/ml 11/[address] CHEM PANEL Magnesium 2.3 mg/dL 1.8 - 2.4 11/15 [facility] CHEM PANEL Phosphorus 3.5 mg/dL 2.5 - 4.5 11/[address] HEMATOLOGY PT 14.0 s 12.0 - 11/15 [facility] 14. [facility] HEMATOLOGY PTT 37.6 s 22.9 - 11/15 [facility] 35. [facility] HEMATOLOGY INR 1.08 0.85 - 11/15 [facility] [facility] 1. [facility] IMMUNOLOGY C-REACTIVE 13.1 mg/L <=2.9 mg/L 11/15 [facility] PROTEIN [facility] IMMUNOLOGY Prealbumin 25.2 mg/dL 18.0 - 11/15 [facility] 45.0 [facility] CHEM PANEL Lactic Acid 0.9 mMol/L 0.5 - 2.2 11/15 [facility] HEMATOLOGY Sed Rate 5 mm/h 0 - 15 11/[address] IMMUNOLOGY C-REACTIVE 15.8 mg/L <=2.9 mg/L 11/15 [facility] PROTEIN [address] HEMATOLOGY PT 13.0 s 12.0 - 11/15 [facility] 14. [facility] HEMATOLOGY INR 0.98 0.85 - 11/15 [facility] 1. [facility] HEMATOLOGY PTT 33.2 s 22.9 - 11/15 [facility] 35. [facility] BLOOD BANK Antibody Negative 11/14 [facility] RESULTS Scrn [facility] (11/14/17 6:51 PM) [place] BLOOD BANK ABO/Rh AB POS 11/14 [facility] RESULTS [address] [place] [address] URINE AND UA 0.2 EU/dL 0.1 - 1.0 11/14 [facility] STOOL Urobilinogen /[address] [place] [address] URINE AND UA Nitrite Negative Negative 11/14 [facility] STOOL [facility] (11/14/17 6:35 PM) [place] URINE AND UA Glucose Negative Negative 11/14 [facility] (11/14/17 6:35 PM) [place] URINE AND UA Ketones Negative Negative 11/14 [place] [address] Medical *NA* Center (11/14/17 6:35 PM) URINE AND UA Bili Negative Negative 11/14 [facility] [address] [place] [address] *NA* [place] (11/14/17 6:35 PM) URINE AND UA Blood Trace Negative 11/14 [facility] *ABN* [place] (11/14/17 6:35 PM) URINE AND UA Leuk Est Small Negative 11/14 [facility] *ABN* [place] (11/14/17 6:35 PM) URINE AND UA Spec Grav 1.020 <=1.030 11/[address] URINE AND UA pH 6.0 5.0 - 8.0 11/[address] URINE AND UA Color Yellow Yellow 11/14 [facility] [address] [place] [address] *NA* [place] (11/14/17 6:35 PM) URINE AND UA Protein Trace Negative 11/14 [facility] *ABN* [place] (11/14/17 6:35 PM) URINE AND UA Turbidity Slight Cloudy Clear 11/[address] (11/14/17 6:35 PM) [place] URINE AND UA Hyal Cast 0-2 0 - 2 11/[address] (11/14/17 6:35 PM) [place] URINE AND UA Bacteria Occasional None Seen 11/14 [facility] /HPF /HPF /2017 [facility] URINE AND UA RBC 11-20 /HPF 0 - 2 11/[address] URINE AND UA Sq Epi Occasional Few /LPF 11/14 [facility] /LPF /[address] [place] [address] URINE AND UA WBC 51-100 None Seen 11/14 [facility] /HPF /HPF /[address] [place] [address] HEMATOLOGY Basophils # 0.1 K/CMM 0.0 - 0.2 11/[address] HEMATOLOGY Polychrom Slight 11/[address] HEMATOLOGY Plt Morph Normal 11/[address] (11/14/17 6:20 PM) [place] Brain Brain shunt EXAM: SKULL 2 VIEWS 11/14 - [facility] shunt series DX /2017 - Medical series DX EXAM: CHEST 2 VIEWS This report was dictated by a Foreign Languages Professor/Fellow. I have personally reviewed the images as [...] EXAM: CT BRAIN WITHOUT CONTRAST 11/14 - [facility] contrast contrast CT /2017 - Medical CT This report was dictated by a Foreign Languages Professor/Fellow. I have personally reviewed the images as Center well as the Resident's interpretation and agree with the findings. DATE: 11/14/2017 627 PM CDT Read by: Josemanuel Hoyt MD Resident: Josemanuel Hoyt MD Dictated Date/time: 11/14/17 18:45 Electronically Signed by: Jovan Talley MD 11/14/17 21:12 FINAL REPORT INDICATION: 32-year-old male patient with history of vp digital marketing shunt malfunction COMPARISON: CT of the brain 07/30/2014, 03/27/2013. TECHNIQUE: Axial CT images of the brain were obtained. Sagittal and coronal reformats. IV contrast: None. FINDINGS: An orphaned right occipital approach CORNETIST shunt is present. Also present is a right frontal approach CORNETIST shunt with tip in the left lateral [...] EXAM: XR CHEST 1 VIEW 11/14 - [facility] 1view DX DX /2017 - Medical This report was dictated by a Foreign Languages Professor/Fellow. I have personally reviewed the images as [...] Level 142 mEq/L 135 - 145 10/07 [facility] [address] Studies /2017 [facility] [place] Potassium 4.4 mEq/L 3.6 - 5.0 10/07 [facility] [address] Studies Level /2017 [facility] [place] Magnesium 1.8 mg/dL 1.8 - 2.5 10/07 [facility] [address] Studies Level /2017 [facility] [place] [facility] Glucose 126 mg/dL 65 - 120 10/07 [facility] [address] Studies Level /2017 [facility] [place] [facility] Estimat null 90 10/07 [facility] [address] Studies Glomerular /2017 [facility] Filtration [place] Rate Laboratory Creatinine 0.83 mg/dL 0.61 - 10/07 [facility] [address] Studies 1.24 [facility] [place] Chloride 108 mEq/L 101 - 111 10/07 [facility]. Studies Level /2017 [facility] [place] [facility] Carbon 27 mEq/L 21 - 31 10/07 [facility]. Studies Dioxide /2017 [facility] [place] [facility] Calcium 9.1 mg/dL 8.5 - 10.5 10/07 [facility]. Studies Level /2017 [facility] [place] [facility] Blood Urea 15 mg/dL 6 - 20 10/07 [facility]. Studies Nitrogen /2017 [facility] [place] White Blood 7.0 K/uL 4.3 - 10.9 10/07 [facility]. Studies Count /2017 [facility] [place] Red Cell 17.4 % 12.1 - 10/07 [facility]. Studies Distribution 15.2 [facility] Width [place] [facility] Red Blood 5.14 M/uL 4.33 - 10/07 [facility]. Studies Count 5.43 [facility] [place] Platelet 270 K/uL 152 - 406 10/07 [facility]. Studies Count /2017 [facility] [place] [facility] Neutrophils 62.3 % 41.7 - 10/07 [facility]. Studies % 73.7 /2017 [facility] [place] Monocytes % 9.3 % 3.3 - 12.3 10/07 [facility]. Studies /2017 [facility] [place] [facility] Mean 8.3 fL 7.6 - 11.3 10/07 [facility]. Studies Platelet /2017 [facility] Volume [place] [facility] Mean 82.8 fL 80 - 100 10/07 [facility]. Studies Corpuscular /2017 [facility] Volume [place] [facility] Mean 33.4 g/dL 32.0 - 10/07 [facility]. Studies Corpuscular 36.0 [facility] Hemoglobin [place] Concent [facility] Mean 27.6 pg 27.0 - 10/07 [facility]. Studies Corpuscular 35.0 /2017 [facility] Hemoglobin [place] [facility] Lymphocytes 24.6 % 15.3 - 10/07 [facility]. Studies % 44.8 /2017 [facility] [place] [facility] Hemoglobin 14.2 g/dL 13.6 - 10/07 [facility] [address] Studies 17.9 /2017 [facility] [place] Hematocrit 42.6 % 39.6 - 10/[address] [facility] [address] Studies 49.0 [facility] [place] Eosinophils 3.3 % 0 - 4.4 10/07 [facility] Studies % /2017 [facility] [place] Basophils % 0.5 % 0 - 1.3 10/07 [facility] St[facility] Studies /2017 [facility] [place] [facility] Absolute 4.4 K/uL 1.8 - 8.0 10/07 [facility] St[facility] Studies Neutrophil /2017 [facility] [place] [facility] Absolute 0.7 K/uL 0.1 - 1.3 10/07 [facility] St[facility] Studies Monocytes /2017 [facility] (CBC) [place] [facility] Absolute 1.7 K/uL 0.7 - 4.9 10/07 [facility] St[facility] Studies Lymphocytes /2017 [facility] (CBC) [place] [facility] Absolute 0.2 K/uL 0 - 0.5 10/07 [facility] Studies Eosinophils [facility] (CBC) [place] [facility] Absolute 0.0 K/uL 0 - 0.5 10/07 [facility] [address] Studies Basophils [facility] (CBC) [place] Microbiolo Providencia Providenci 10/06 [facility] St[facility] gy Studies Rettgeri a Rettgeri /2017 [facility] Urine WBC null 10/04 [facility] St[facility] Studies /2017 [facility] [place] [facility] Urine null 10/04 [facility] St[facility] Studies Squamous /2017 [facility] Epithelial [place] Cells Laboratory Urine RBC Urine RBC 10/04 [facility] St[facility] Studies /2017 [facility] [place] [facility] Urine Urine 10/04 [facility] St[facility] Studies Culture Culture /2017 [facility] Reflexed Reflexed [place] [facility] Urine null 10/04 [facility] St[facility] Studies Bacteria /2017 [facility] [place] [facility] Urine pH 6.5 10/04 [facility] St[facility] Studies /2018 [facility] [place] [facility] Urine 2.0 mg/dL 10/04 [facility] [address] Studies Urobilinogen /2017 [facility] [place] [facility] Urine Total Urine 10/04 [facility] St[facility] Studies Protein Total /2017 [facility] Protein [place] [facility] Urine 1.020 10/04 [facility] Studies Specific /2017 [facility]ney [place] [facility] Urine Urine 10/04 [facility] Studies Nitrite Nitrite /2017 [facility] [place] [facility] Urine Urine 10/04 [facility] St[facility] Studies Leukocyte Leukocyte /2017 [facility] Esterase Esterase [place] [facility] Urine Urine 10/[address] [facility] [address] Studies Ketones Ketones [facility] [place] [facility] Urine Urine 10/04 [facility] Studies Glucose Glucose [facility] [place] [facility] Urine Color Urine 10/04 [facility]. Studies Color /2017 [facility] [place] [facility] Urine Blood Urine 10/04 [facility]. Studies Blood [facility] [place] [facility] Urine Urine 10/04 [facility]. Studies Bilirubin Bilirubin [facility] [place] [facility] Urine Urine 10/04 [facility]. Studies Appearance Appearance /2017 [facility] [place] [facility] Prothrombin 13.0 9.5 - 12.5 10/03 [facility] Studies Time SECONDS [facility] [place] [facility] INR 1.10 10/03 [facility]. Studies Internationa /2017 [facility] l Normalized [place] Ratio Laboratory Total 1.9 mg/dL 0.3 - 1.2 10/03 [facility] Studies Bilirubin /2017 [facility] [place] [facility] Serum Total 7.8 g/dL 6.0 - 8.3 10/03 [facility]. Studies Protein /2017 [facility] [place] [facility] Globulin 4.2 g/dL 2.3 - 3.5 10/03 [facility]. Studies /2017 [facility] [place] [facility] Direct 0.6 mg/dL 0 - 0.2 10/03 [facility] Studies Bilirubin /2017 [facility] [place] [facility] Aspartate 88 IU/L 10 - 42 10/03 [facility]. Studies Amino Transf /2017 [facility] (AST/SGOT) [place] [facility] Alkaline 192 IU/L 42 - 121 10/03 [facility]. Studies Phosphatase /2017 [facility] [place] [facility] Albumin/Glob 0.9 1.1 - 1.8 10/03 [facility] Studies ulin Ratio /2017 [facility] [place] [facility] Albumin 3.6 g/dL 3.2 - 5.5 10/03 [facility]. Studies /2017 [facility] [place] [facility] Alanine 135 IU/L 10 - 60 10/03 [facility]. Studies Aminotransfe /2017 [facility] rase [place] (ALT/SGPT) Laboratory Procalcitoni 0.44 ng/mL 10/03 [facility]. Studies n [facility] [place] [facility] B-Type 20 pg/ml 10/03 [facility]. Studies Natriuretic /2017 [facility] Peptide [place] [facility] Lipase 22 U/L 22 - 51 10/[address] [facility] [facility] [place] [facility] Rapid null 10/03 [facility] [address] Studies Troponin I [facility] [place] [facility] Lactic Acid 8.6 mg/dL 4.5 - 19.8 10/[address] [facility] Studies Level [facility] [place] Microbiolo Morganella Morganella 09/[address] [facility] Studies Morganii Morganii [facility] [place] [facility] Proteus Proteus 09/07 [facility] [address] gy Studies Mirabilis Mirabilis [facility] [place] [facility] Activated 32.2 24.3 - 09/01 [facility] St. Studies Partial SECONDS 36.9 [facility] Thromboplast [place] Time Vital Signs Vital Sign Value Date Comments Source Temperature Oral (F) 97.2 F 11/19/[address] [facility] Systolic (mm Hg) 127 11/19/[address] [facility] Diastolic (mm Hg) 85 11/19/[address] [facility] Heart Rate 81 11/19/[address] [facility] Respitory Rate 18 11/19/[address] [facility] Heart Rate 90 11/19/[address] [facility] Systolic (mm Hg) 106 11/19/[address] [facility] Diastolic (mm Hg) 71 11/19/[address] [facility] Respitory Rate 18 11/19/[address] [facility] Temperature Oral (F) 98.1 F 11/19/[address] [facility] Respitory Rate 18 11/19/[address] [facility] Systolic (mm Hg) 168 11/19/[address] [facility] Diastolic (mm Hg) 107 11/19/[address] [facility] Heart Rate 87 11/19/[address] [facility] Temperature Oral (F) 98.1 F 11/19/[address] [facility] Weight 127.027 11/18/[address] [facility] Weight 127.027 11/17/[address] [facility] Weight 127.027 11/15/[address] [facility] BMI Calculated 48.16 11/15/[address] [facility] Height 162.56 cm 11/15/[address] [facility] Height 149.86 cm 11/14/[address] [facility] BMI Calculated 56.67 11/14/[address] [facility] Heart Rate 85 10/07/2017 [facility] [place] Systolic (mm Hg) 145 10/07/[address] [facility] [place] Diastolic (mm Hg) 66 10/07/[address] [facility] [place] Temperature Oral (F) 97.7 F 10/07/[address] [facility] [place] Respitory Rate 16 10/07/[address] [facility] [place] Height 59 10/06/[address] [facility] [place] Weight 280 10/06/[address] [facility] [place] Encounters Location Location Encounter Encounter Reason Attending ADM DC Status Source Details Type Number For Provider Date Date Visit [facility] [id number] 07/11 07/[address] [facility]2016 [facility] [place] [facility] [id number] 08/08 08/14 [facility]2017 [facility] [place] [facility] Dep[facility] [id number] 09/01 09/[address] [facility] Emergency /2017 [facility] [place] [facility] [id number] 09/10 09/11 [facility]2017 [facility] [place] [facility] [facility] [id number] 09/[address] [facility]2017 [facility] [place] [facility] [id number] 10/04 10/07 [facility]2017 [facility] [place] [facility] Inpatient [id number] [place] 11/14 11/19 [facility] /2017 [facility] Procedures Procedure Code Date Perfomer Comments Source Chest Single View [id number] [facility] [place] - [facility] [place] Gram Stain [id number] [facility] [place] - [facility] [place] Culture & Sensitivity [id number] [facility] [place] - 8 [place] Anaerobic Blood [id number] [facility] [place] - Culture 8 [place] Aerobic Blood Culture [id number] [facility] [place] - [facility] [place] Chest Single View [id number] [facility] [place] Gram [id number] [facility] [place] Culture & Sensitivity [id number] [facility] - [facility] [place] Chest Single View [id number] [facility] [place] Cholecystectomy [id number] [facility] Shunt of cerebral [id number] [facility] ventricle to [facility] extracranial site
--- OUTSIDE RECORDS SUMMARY | 2018-10-09 20:39 | XMS REPORT ---
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
--- OUTSIDE RECORDS SUMMARY | 2018-10-09 20:39 | XMS REPORT ---
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) shunt Z98.2 Active status Problem Nicotine dependence F17.200 Active Medications Medication Code Code Instructions Start End Status Dosage System Date Date Collagenase [facility] [address]-58 250 UNIT/GM Active 1 application Externally to affected Once a day area Macrobid [facility] 30724448743 100 MG Orally Active 1 capsule every 12 hrs with food Tylenol with [facility] 82552833112 300-60 MG Active 1 tablet as Codeine #4 Orally every 6 needed hrs Citalopram [facility] 14455609174 10 MG Orally January Active 1 tablet Hydrobromide Once a day 2017 Pantoprazole [facility] 93674497610 40 MG Orally Active 1 tablet Sodium Once a day Seroquel [facility] 60242829132 25 MG Orally January Active 1 tablet Once a day at 16, bedtime 2017 Results No Known Results Summary Purpose [employer] Submission
--- OUTSIDE RECORDS SUMMARY | 2018-10-09 20:39 | XMS REPORT ---
[...] tension-type headache, not G44.219 Active intractable Assessment GEAR KEEPER (ventriculoperitoneal) shunt Z98.2 Active status Assessment Ulcer [...] vomiting not specified, unspecified vomiting type Problem GEAR KEEPER (ventriculoperitoneal) shunt Z98.2 Active status Medications Medication Code Code Instructions Start End Status Dosage System Date Date Tylenol with [facility] 08519215930 300-60 MG Active 1 tablet as Codeine #4 Orally every 6 needed hrs Macrobid [facility] 65039224696 100 MG Orally Active 1 capsule every 12 hrs with food Pantoprazole [place] 16825323730 40 MG Orally Active 1 tablet Sodium Once a day Collagenase [facility] [address]-48 250 UNIT/GM Active 1 application Externally to affected Once a day area Results No Known Results Summary Purpose [employer] Submission
--- OUTSIDE RECORDS SUMMARY | 2018-10-09 20:39 | XMS REPORT ---
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
--- OUTSIDE RECORDS SUMMARY | 2018-10-09 20:40 | XMS REPORT ---
[...] ulcer stage Problem Paraplegia G82.20 Active Assessment BOTTLE LABELER (ventriculoperitoneal) shunt Z98.2 Active status Problem Nausea [...] headache, R51 Active unspecified headache type Problem BOTTLE LABELER (ventriculoperitoneal) shunt Z98.2 Active status Problem Episodic tension-type headache, not G44.219 Active intractable Problem Lumbar spina bifida with Q05.2 Active hydrocephalus Problem Foot ulcer L97.509 Active Problem Nicotine dependence F17.200 Active Problem Dependence on wheelchair Z99.3 Active Medications Medication Code Code Instructions Start End Status Dosage System Date Date Macrobid [facility] 61734342751 100 MG Orally Active 1 capsule every 12 hrs with food Tylenol with [facility] 43450159495 300-60 MG Active 1 tablet as Codeine #4 Orally every 6 needed hrs Pantoprazole ND 01555898840 40 MG Orally Active 1 tablet Sodium Once a day Citalopram [facility] 59906712376 10 MG Orally Active 1 tablet Hydrobromide Once a day Collagenase [facility] [address]-35 250 UNIT/GM Active 1 application Externally to affected Once a day area Seroquel [facility] 67355401771 25 MG Orally Active 1 tablet Once a day at bedtime Results No Known Results Summary Purpose [employer] Submission
--- OUTSIDE RECORDS SUMMARY | 2018-10-09 20:40 | XMS REPORT ---
:1985 [facility] Address [address] [place] [address] [address] [place] [address] Care Team Providers Name Role Phone JAQUELIN GENAO Unavailable Unavailable Problems This patient has no known problems. Allergies, Adverse Reactions, Alerts This patient has no known allergies or adverse reactions. Medications This patient has no known medications. Results Test Description Test Time Test Comments Text Results Atomic Results Result Comments BLOOD CULTURE 2016-12-28 16:22:00 Test Item Value Reference Range Comments CULTURE (BEAKER) (test guzj=3816) No growth in 5 days BLOOD [id number] 16:22:00 Test Item Value Reference Range Comments CULTURE (BEAKER) (test wlta=4651) No growth in 5 days (MANUAL DIFFERENTIAL)2016-12-25 22:29:00 Test Item Value Reference Range Comments TOTAL COUNTED (BEAKER) (test wdtt=9718) WBC MORPHOLOGY (BEAKER) (test qxpk=539) Normal PLT MORPHOLOGY (BEAKER) (test wqfc=750) Normal RBC MORPHOLOGY (BEAKER) (test uact=352) Normal CBC W/PLT COUNT & AUTO [id number] 22:28:00 Test Item Value Reference Range Comments WHITE BLOOD CELL COUNT (BEAKER) (test hrap=937) 7.3 K/ L 4.0-10.0 RED BLOOD CELL COUNT (BEAKER) (test zybf=795) 5.09 M/ L 4.20-5.80 HEMOGLOBIN (BEAKER) (test lino=278) 13.0 GM/DL 13.0-16.8 HEMATOCRIT (BEAKER) (test abpv=819) 42.3 % 40.0-50.0 MEAN CORPUSCULAR VOLUME (BEAKER) (test ifsz=320) 83.0 fL 82.0-98.0 MEAN CORPUSCULAR HEMOGLOBIN (BEAKER) (test 25.6 pg 27.0-33.0 lczi=820) MEAN CORPUSCULAR HEMOGLOBIN CONC (BEAKER) (test 30.8 GM/DL 32.0-36.0 ngrw=230) RED CELL DISTRIBUTION WIDTH (BEAKER) (test 18.0 % 10.3-14.2 edks=314) PLATELET COUNT (BEAKER) (test rxon=910) 331 K/CU MM 150-430 MEAN PLATELET VOLUME (BEAKER) (test gqag=397) 8.5 fL 6.5-10.5 NUCLEATED RED BLOOD CELLS (BEAKER) (test 0 /100 WBC 0-0 bjdw=140) NEUTROPHILS RELATIVE PERCENT (BEAKER) (test 65 % havu=085) LYMPHOCYTES RELATIVE PERCENT (BEAKER) (test 23 % gedj=480) MONOCYTES RELATIVE PERCENT (BEAKER) (test 8 % krxt=165) EOSINOPHILS RELATIVE PERCENT (BEAKER) (test 3 % lgei=949) BASOPHILS RELATIVE PERCENT (BEAKER) (test 1 % ubuu=610) NEUTROPHILS ABSOLUTE COUNT (BEAKER) (test 4.75 K/ L 1.80-8.00 vhge=063) LYMPHOCYTES ABSOLUTE COUNT (BEAKER) (test 1.68 K/ L 1.48-4.50 wqxs=825) MONOCYTES ABSOLUTE COUNT (BEAKER) (test 0.55 K/ L 0.00-1.30 uybi=242) EOSINOPHILS ABSOLUTE COUNT (BEAKER) (test 0.24 K/ L 0.00-0.50 jzhz=612) BASOPHILS ABSOLUTE COUNT (BEAKER) (test 0.05 K/ L 0.00-0.20 ppck=081) [id number] METABOLIC [id number] 11:11:00 Test Item Value Reference Range Comments SODIUM (BEAKER) (test 138 meq/L 136-145 ersd=697) POTASSIUM (BEAKER) (test 4.0 meq/L 3.5-5.1 ltvj=218) CHLORIDE (BEAKER) (test 108 meq/L 98-107 prve=678) CO2 (BEAKER) (test 23 meq/L 22-29 dqhg=369) BLOOD UREA NITROGEN 11 mg/dL 7-21 (BEAKER) (test ixxj=472) CREATININE (BEAKER) (test 0.74 mg/dL 0.57-1.25 oayc=699) GLUCOSE RANDOM (BEAKER) 124 mg/dL 70-105 (test siga=572) CALCIUM (BEAKER) (test 8.9 mg/dL 8.4-10.2 fgds=088) EGFR (BEAKER) (test 150 mL/min/1.73 sq m ESTIMATED GFR IS NOT splw=6879) ACCURATE CREATININE CLEARANCE IN PREDICTING GLOMERULAR FILTRATION RATE. ESTIMATED GFR IS NOT APPLICABLE FOR DIALYSIS PATIENTS. URINE [id number] 09:56:00 Test Item Value Reference Range Comments CULTURE (BEAKER) (test aiku=2518) <10,000 col/mL skin marilee COMPREHENSIVE METABOLIC [id number] 08:49:00 Test Item Value Reference Range Comments TOTAL PROTEIN (BEAKER) 7.3 gm/dL 6.0-8.3 (test bufu=332) ALBUMIN (BEAKER) (test 3.3 g/dL 3.5-5.0 ksdr=6295) ALKALINE PHOSPHATASE 89 U/L 40-150 (BEAKER) (test kefg=981) BILIRUBIN TOTAL (BEAKER) 1.4 mg/dL 0.2-1.2 (test jncj=877) SODIUM (BEAKER) (test 137 meq/L 136-145 tcpv=721) POTASSIUM (BEAKER) (test 3.7 meq/L 3.5-5.1 sihp=699) CHLORIDE (BEAKER) (test 108 meq/L 98-107 lxoo=174) CO2 (BEAKER) (test 17 meq/L 22-29 chty=145) BLOOD UREA NITROGEN 12 mg/dL 7-21 (BEAKER) (test otwf=760) CREATININE (BEAKER) (test 0.78 mg/dL 0.57-1.25 mnoz=924) GLUCOSE RANDOM (BEAKER) 119 mg/dL 70-105 (test bxii=252) CALCIUM (BEAKER) (test 8.6 mg/dL 8.4-10.2 jewi=920) AST (SGOT) (BEAKER) (test 13 U/L 5-34 iain=329) ALT (SGPT) (BEAKER) (test 28 U/L 6-55 kshn=537) EGFR (BEAKER) (test 141 mL/min/1.73 sq ESTIMATED GFR IS NOT bqra=7363) m ACCURATE CREATININE CLEARANCE IN PREDICTING GLOMERULAR FILTRATION RATE. ESTIMATED GFR IS NOT APPLICABLE FOR DIALYSIS PATIENTS. CBC W/PLT COUNT & AUTO [id number] 08:46:00 Test Item Value Reference Range Comments WHITE BLOOD CELL COUNT (BEAKER) (test wvxg=731) 9.4 K/ L 4.0-10.0 RED BLOOD CELL COUNT (BEAKER) (test xwvc=736) 4.79 M/ L 4.20-5.80 HEMOGLOBIN (BEAKER) (test hoiu=293) 12.8 GM/DL 13.0-16.8 HEMATOCRIT (BEAKER) (test pgns=562) 40.0 % 40.0-50.0 MEAN CORPUSCULAR VOLUME (BEAKER) (test borw=586) 83.4 fL 82.0-98.0 MEAN CORPUSCULAR HEMOGLOBIN (BEAKER) (test 26.7 pg 27.0-33.0 xzlc=947) MEAN CORPUSCULAR HEMOGLOBIN CONC (BEAKER) (test 32.0 GM/DL 32.0-36.0 xzuz=897) RED CELL DISTRIBUTION WIDTH (BEAKER) (test 18.2 % 10.3-14.2 fpay=511) PLATELET COUNT (BEAKER) (test sbir=190) 313 K/CU MM 150-430 MEAN PLATELET VOLUME (BEAKER) (test prtb=764) 8.6 fL 6.5-10.5 NUCLEATED RED BLOOD CELLS (BEAKER) (test 0 /100 WBC 0-0 tnyw=793) NEUTROPHILS RELATIVE PERCENT (BEAKER) (test 70 % brpj=864) LYMPHOCYTES RELATIVE PERCENT (BEAKER) (test 16 % aauh=536) MONOCYTES RELATIVE PERCENT (BEAKER) (test 12 % odcd=386) EOSINOPHILS RELATIVE PERCENT (BEAKER) (test 1 % ikji=889) BASOPHILS RELATIVE PERCENT (BEAKER) (test 1 % yyce=706) NEUTROPHILS ABSOLUTE COUNT (BEAKER) (test 6.54 K/ L 1.80-8.00 hksm=555) LYMPHOCYTES ABSOLUTE COUNT (BEAKER) (test 1.50 K/ L 1.48-4.50 nwsy=773) MONOCYTES ABSOLUTE COUNT (BEAKER) (test 1.13 K/ L 0.00-1.30 wsoh=269) EOSINOPHILS ABSOLUTE COUNT (BEAKER) (test 0.13 K/ L 0.00-0.50 icqz=368) BASOPHILS ABSOLUTE COUNT (BEAKER) (test 0.06 K/ L 0.00-0.20 uosc=887) 0.00URINALYSIS W/ [id number] 20:36:00 Test Item Value Reference Range Comments COLOR (BEAKER) (test yqai=273) Yellow CLARITY (BEAKER) (test cuqe=763) Hazy SPECIFIC GRAVITY UA (BEAKER) (test eogd=979) 1.012 1.001-1.035 PH UA (BEAKER) (test rome=477) 5.5 5.0-8.0 PROTEIN UA (BEAKER) (test thqg=076) 100 mg/dL Negative GLUCOSE UA (BEAKER) (test tvcb=355) Negative Negative KETONES UA (BEAKER) (test hbcd=116) Negative Negative BILIRUBIN UA (BEAKER) (test jyie=335) Negative Negative BLOOD UA (BEAKER) (test sktz=258) Moderate Negative NITRITE UA (BEAKER) (test xgsi=406) Negative Negative LEUKOCYTE ESTERASE UA (BEAKER) (test lhqs=177) Large Negative UROBILINOGEN UA (BEAKER) (test dkbm=708) 3.0 mg/dL 0.2-1.0 RBC UA (BEAKER) (test jnnc=103) 19 /HPF WBC UA (BEAKER) (test lget=317) 182 /HPF SOURCE(BEAKER) (test ksnx=7858) BASIC METABOLIC [id number] 17:00:00 Test Item Value Reference Range Comments SODIUM (BEAKER) (test 140 meq/L 136-145 gnva=832) POTASSIUM (BEAKER) (test 3.7 meq/L 3.5-5.1 uykp=466) CHLORIDE (BEAKER) (test 112 meq/L 98-107 lrkr=814) CO2 (BEAKER) (test 17 meq/L 22-29 ldyx=843) BLOOD UREA NITROGEN 23 mg/dL 7-21 (BEAKER) (test igii=798) CREATININE (BEAKER) (test 1.00 mg/dL 0.57-1.25 igjk=444) GLUCOSE RANDOM (BEAKER) 102 mg/dL 70-105 (test relm=897) CALCIUM (BEAKER) (test 8.7 mg/dL 8.4-10.2 mnqr=234) EGFR (BEAKER) (test 106 mL/min/1.73 sq m ESTIMATED GFR IS NOT wrrv=1027) ACCURATE CREATININE CLEARANCE IN PREDICTING GLOMERULAR FILTRATION RATE. ESTIMATED GFR IS NOT APPLICABLE FOR DIALYSIS PATIENTS. Specimen slightly ictericCBC W/PLT COUNT & AUTO [id number] 12:18 :00 Test Item Value Reference Range Comments WHITE BLOOD CELL COUNT (BEAKER) (test jdsu=465) 16.4 K/ L 4.0-10.0 RED BLOOD CELL COUNT (BEAKER) (test lvvf=691) 5.22 M/ L 4.20-5.80 HEMOGLOBIN (BEAKER) (test vpxu=342) 14.4 GM/DL 13.0-16.8 HEMATOCRIT (BEAKER) (test uhho=703) 42.9 % 40.0-50.0 MEAN CORPUSCULAR VOLUME (BEAKER) (test bmoo=905) 82.2 fL 82.0-98.0 MEAN CORPUSCULAR HEMOGLOBIN (BEAKER) (test 27.5 pg 27.0-33.0 zryh=681) MEAN CORPUSCULAR HEMOGLOBIN CONC (BEAKER) (test 33.5 GM/DL 32.0-36.0 oqqy=271) RED CELL DISTRIBUTION WIDTH (BEAKER) (test 16.2 % 10.3-14.2 ogke=288) PLATELET COUNT (BEAKER) (test hjrj=790) 329 K/CU MM 150-430 MEAN PLATELET VOLUME (BEAKER) (test dtqo=309) 8.2 fL 6.5-10.5 NUCLEATED RED BLOOD CELLS (BEAKER) (test 0 /100 WBC 0-0 mmik=435) NEUTROPHILS RELATIVE PERCENT (BEAKER) (test 83 % nixe=207) LYMPHOCYTES RELATIVE PERCENT (BEAKER) (test 7 % gvhi=525) MONOCYTES RELATIVE PERCENT (BEAKER) (test 9 % lzpr=779) EOSINOPHILS RELATIVE PERCENT (BEAKER) (test 0 % rygx=107) BASOPHILS RELATIVE PERCENT (BEAKER) (test 0 % uobp=114) NEUTROPHILS ABSOLUTE COUNT (BEAKER) (test 1.62 K/ L 1.80-8.00 trgx=039) LYMPHOCYTES ABSOLUTE COUNT (BEAKER) (test 1.15 K/ L 1.48-4.50 moyx=994) MONOCYTES ABSOLUTE COUNT (BEAKER) (test 1.56 K/ L 0.00-1.30 uzci=318) EOSINOPHILS ABSOLUTE COUNT (BEAKER) (test 0.01 K/ L 0.00-0.50 mhxp=007) BASOPHILS ABSOLUTE COUNT (BEAKER) (test 0.02 K/ L 0.00-0.20 sluz=031) (MANUAL DIFFERENTIAL)2016-12-23 12:18:00 Test Item Value Reference Range Comments TOTAL COUNTED (BEAKER) (test ltlh=3057) WBC MORPHOLOGY (BEAKER) (test vvjk=891) Normal PLT MORPHOLOGY (BEAKER) (test xazw=436) Normal RBC MORPHOLOGY (BEAKER) (test crag=817) Normal
[2018-10-09] MEDS ORDERED: PROMETHAZINE 25 MG TABLET ONE (22:11)
--- NOTE | 2018-10-09 22:53 | EDPHYS ---
Physician Documentation [facility] Name: Roland Feldman Jr Age: 33 yrs Sex: Male : 1985 Arrival Date: 10/09/2018 Time: 20:33 Bed 25 Private MD: ED Physician Jan Vang HPI: 10/09 22:43 This 33 yrs old Black Male presents to ER via EMS with complaints of Dizziness. jr8 22:43 The patient presents with dizziness. Onset: The symptoms/episode began/occurred jr8 acutely, today. Context: occurred outdoors, occurred while the patient was at rest. Modifying factors: The symptoms are alleviated by nothing, the symptoms are aggravated by nothing. Associated signs and symptoms: Pertinent positives: nausea. Severity of symptoms: At their worst the symptoms were moderate in the emergency department the symptoms are unchanged. Patient's baseline: Neuro: alert and fully oriented, Motor: no deficits, Ambulation: unable to walk, uses wheelchair, Speech: normal. The patient has not experienced similar symptoms in the past. The patient has not recently seen a physician. Patient stated that there was a gas leak today where is currently resides. Caused him to become nauseated and dizzy. Had chest pain as well . 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 - Social history:: Smoking status: Patient uses tobacco products, smokes one-half pack cigarettes per day. - Ebola Screening: : No symptoms or risks identified at this time. ROS: 22:43 Eyes: Negative for injury, pain, redness, and discharge, ENT: Negative for injury, jr8 pain, and discharge, Neck: Negative for injury, pain, and swelling, Respiratory: Negative for shortness of breath, cough, wheezing, and pleuritic chest pain, Back: Negative for injury and pain, MS/Extremity: Negative for injury and deformity, Skin: Negative for injury, rash, and discoloration, Neuro: Negative for headache, weakness, numbness, tingling, and seizure. 22:43 Cardiovascular: Positive for chest pain, Negative for edema, orthopnea, palpitations, paroxysmal nocturnal dyspnea. 22:43 Abdomen/GI: Positive for nausea. 22:43 Neuro: Positive for dizziness, Negative for altered mental status, headache. Exam: 22:43 Eyes: Pupils equal round and reactive to light, extra-ocular motions intact. Lids and jr8 lashes normal. Conjunctiva and sclera are non-icteric and not injected. Cornea within normal limits. Periorbital areas with no swelling, redness, or edema. ENT: Nares patent. No nasal discharge, no septal abnormalities noted. Tympanic membranes are normal and external auditory canals are clear. Oropharynx with no redness, swelling, or masses, exudates, or evidence of obstruction, uvula midline. Mucous membranes moist. Neck: Trachea midline, no thyromegaly or masses palpated, and no cervical lymphadenopathy. Supple, full range of motion without nuchal rigidity, or vertebral point tenderness. No Meningismus. Cardiovascular: Regular rate and rhythm with a normal S1 and S2. No gallops, murmurs, or rubs. Normal PMI, no JVD. No pulse deficits. Respiratory: Lungs have equal breath sounds bilaterally, clear to auscultation and percussion. No rales, rhonchi or wheezes noted. No increased work of breathing, no retractions or nasal flaring. Abdomen/GI: Soft, non-tender, with normal bowel sounds. No distension or tympany. No guarding or rebound. No evidence of tenderness throughout. Back: No spinal tenderness. No costovertebral tenderness. Full range of motion. Skin: Warm, dry with normal turgor. Normal color with no rashes, no lesions, and no evidence of cellulitis. Neuro: Awake and alert, GCS 15, oriented to person, place, time, and situation. Cranial nerves II-XII grossly intact. Motor strength 5/5 in all extremities. Sensory grossly intact. 22:43 ECG was reviewed by the Attending Physician. jr8 Vital Signs: 20:36 BP 118 / 80; Pulse 106; Resp 20; Temp 99.6; Pulse Ox 97% on R/A; Weight 136.08 kg; ca1 Height 4 ft. 11 in. (149.86 cm); Pain 8/10; 21:34 BP 122 / 93; Pulse 103; Resp 19; Pulse Ox 97% on R/A; ca1 22:26 BP 143 / 96; Pulse 102; Resp 19; Pulse Ox 99% on R/A; ca1 23:04 BP 127 / 87; Pulse 96; Resp 19; Pulse Ox 97% on R/A; ca1 20:36 Body Mass Index 60.59 (136.08 kg, 149.86 cm) ca1 MDM: 20:36 Patient medically screened. jr8 22:43 Data reviewed: vital signs, nurses notes, EKG, and as a result, I will discharge jr8 patient. Data interpreted: Pulse oximetry: on room air is 99 %. Interpretation: normal. Counseling: I had a detailed discussion with the patient and/or guardian regarding: the historical points, exam findings, and any diagnostic results supporting the discharge/admit diagnosis, the need for outpatient follow up, a family practitioner, to return to the emergency department if symptoms worsen or persist or if there are any questions or concerns that arise at home. 10/09 20:56 Order name: EKG; Complete Time: 20:57 [facility] 10/09 20:56 Order name: EKG - Nurse/Tech; Complete Time: 20:56 [facility] EC:43 Rate is 102 beats/min. Rhythm is regular, Sinus tachycardia. QRS Borden is Normal. ND jr8 interval is normal at 152 msec. QRS interval is normal at 94 msec. QT interval is normal at 432 msec. No Q waves. T waves are Normal. No ST changes noted. Clinical impression: Normal ECG. Interpreted by me. Reviewed by me. Administered Medications: 21:59 Drug: Phenergan 25 mg Route: PO; ca1 23:02 Follow up: Response: No adverse reaction; Nausea is decreased ca1 22:57 Drug: Dilaudid 1 mg Route: IM; Site: left deltoid; ca1 23:33 Follow up: Response: No adverse reaction; Pain is decreased ca1 Disposition: 10/09/18 22:52 Discharged to Home. Impression: Dizziness and giddiness, Chest pain, unspecified. - Condition is Stable. - Discharge Instructions: Nonspecific Chest Pain, Chemical Inhalation Injury, Adult. - Medication Reconciliation Form, Thank You Letter, Antibiotic Education, Prescription Opioid Use form. - Follow up: Private Physician; When: 2 - 3 days; Reason: Recheck today's complaints, Continuance of care, Re-evaluation by your physician. - Problem is new. - Symptoms have improved. Signatures: Kathy Hoyos, RN RN iw Buddy Kumar PA PA jr8 Monet Tate RN RN ca1 Corrections: (The following items were deleted from the chart) 10/10 06:57 10/09 22:52 10/09/2018 22:52 Discharged to Home. Impression: Dizziness and giddiness; iw Chest pain, unspecified. Condition is Stable. Forms are Medication Reconciliation Form, Thank You Letter, Antibiotic Education, Prescription Opioid Use. Follow up: Private Physician; When: 2 - 3 days; Reason: Recheck today's complaints, Continuance of care, Re-evaluation by your physician. Problem is new. Symptoms have improved. jr8
--- NOTE | 2018-10-09 22:53 | ER ---
Nurse's Notes [facility] Name: Roland Feldman Jr Age: 33 yrs Sex: Male : 1985 Arrival Date: 10/09/2018 Time: 20:33 Bed 25 Private MD: Diagnosis: Dizziness and giddiness;Chest pain, unspecified Presentation: 10/09 20:36 Presenting complaint: EMS states: there was a gas leak in the kitchen at [place] [address] and pt has inhaled the gas-leak. Pt experienced dizziness, N/V, chest tightness, headache, and sharp chest pain. Transition of care: patient was received from another setting of care (long-term care facility), [facility]. Onset of symptoms was October 09, 2018 at 20:00. Risk Assessment: Do you want to hurt yourself or someone else? Patient reports no desire to harm self or others. Initial Sepsis Screen: Does the patient meet any 2 criteria? RR > 20 per min. Does the patient have a suspected source of infection? No. Patient's initial sepsis screen is negative. Care prior to arrival: Glucose check: 138. 20:36 Method Of Arrival: EMS: [facility] ca1 20:36 Acuity: YUKI 3 ca1 Triage Assessment: 20:36 General: Appears in no apparent distress. uncomfortable, Behavior is calm, cooperative, ca1 appropriate for age. Pain: Complains of pain in chest Pain does not radiate. Pain currently is 8 out of 10 on a pain scale. Quality of pain is described as sharp, Pain began 30 min ago. Is continuous. 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 - Social history:: Smoking status: Patient uses tobacco products, smokes one-half pack cigarettes per day. - Ebola Screening: : No symptoms or risks identified at this time. Screenin:46 Abuse screen: Denies threats or abuse. Denies injuries from another. Nutritional ca1 screening: No deficits noted. Tuberculosis screening: No symptoms or risk factors identified. Fall Risk Ambulatory Aid- None/Bed Rest/Nurse Assist (0 pts). Assessment: 20:46 General: Appears in no apparent distress. comfortable, Behavior is calm, cooperative, ca1 appropriate for age. Pain: Complains of pain in mid-sternal area Pain does not radiate. Pain currently is 8 out of 10 on a pain scale. Quality of pain is described as sharp, Pain began 30 min ago. Is continuous. Neuro: Level of Consciousness is awake, alert, obeys commands, Oriented to person, place, time, situation. Cardiovascular: Heart tones S1 S2 present Capillary refill < 3 seconds Patient's skin is warm and dry. Respiratory: Airway is patent Respiratory effort is even, unlabored, Respiratory pattern is regular, symmetrical, Breath sounds are clear bilaterally. Respiratory: Reports shortness of breath. GI: Abdomen is round non-distended, Bowel sounds present X 4 quads. Abd is soft and non tender X 4 quads. : No deficits noted. No signs and/or symptoms were reported regarding the genitourinary system. EENT: No deficits noted. No signs and/or symptoms were reported regarding the EENT system. Derm: Skin is healthy with good turgor, Skin is pink, warm \T\ dry. Decubitus located on bilateral heel(s) approximately > 20 cm. Musculoskeletal: Circulation, motion, and sensation intact. Capillary refill < 3 seconds, Range of motion: limited in left knee and right knee. 21:34 Reassessment: Patient appears in no apparent distress at this time. Patient and/or ca1 family updated on plan of care and expected duration. Pain level reassessed. Patient is alert, oriented x 3, equal unlabored respirations, skin warm/dry/pink. 22:26 Reassessment: Patient appears in no apparent distress at this time. Patient is alert, ca1 oriented x 3, equal unlabored respirations, skin warm/dry/pink. Juice and water requested and provided. No reports of nausea and vomiting. 23:04 Reassessment: Patient appears in no apparent distress at this time. Patient is alert, ca1 oriented x 3, equal unlabored respirations, skin warm/dry/pink. Pt is discharged. Called and informed [facility] to arrange pharmacy picking technician. 10/10 00:01 Reassessment: Still awaiting transport from group home. ca1 00:17 Reassessment: Called [facility] for update. They said, Ms. Pierce from the facility ca1 is on her way to pharmacy picking technician pt. 03:49 Reassessment: Patient appears in no apparent distress at this time. Patient and/or aa1 family updated on plan of care and expected duration. Pain level reassessed. Patient is alert, oriented x 3, equal unlabored respirations, skin warm/dry/pink. Staff member called from [facility] and stated that it will at least be another hour and a half before her trackless trolley driver can be here to pharmacy picking technician pt. 05:21 Reassessment: Patient appears in no apparent distress at this time. Patient and/or aa1 family updated on plan of care and expected duration. Pain level reassessed. Pt still awaiting group home transportation. 06:38 Reassessment: Patient appears in no apparent distress at this time. Patient and/or aa1 family updated on plan of care and expected duration. Pain level reassessed. Patient is alert, oriented x 3, equal unlabored respirations, skin warm/dry/pink. Pt still awaiting transportation from [facility]. Attempted to contact facility again but no answer. Vital Signs: 10/09 20:36 BP 118 / 80; Pulse 106; Resp 20; Temp 99.6; Pulse Ox 97% on R/A; Weight 136.08 kg; ca1 Height 4 ft. 11 in. (149.86 cm); Pain 8/10; 21:34 BP 122 / 93; Pulse 103; Resp 19; Pulse Ox 97% on R/A; ca1 22:26 BP 143 / 96; Pulse 102; Resp 19; Pulse Ox 99% on R/A; ca1 23:04 BP 127 / 87; Pulse 96; Resp 19; Pulse Ox 97% on R/A; ca1 20:36 Body Mass Index 60.59 (136.08 kg, 149.86 cm) ca1 ED Course: 20:33 Patient arrived in ED. ds1 20:35 Monet Tate, RN is Primary Nurse. ca1 20:36 Buddy Kumar PA is PHCP. jr8 20:36 Jan Vang MD is Attending Physician. jr8 20:36 Arm band placed on right wrist. EKG completed in triage. Results shown to MD. ca1 20:38 Triage completed. ca1 20:46 Patient has correct armband on for positive identification. Placed in gown. Bed in low ca1 position. Call light in reach. Side rails up X2. radiation monitor on. Pulse ox on. NIBP on. Warm blanket given. 23:03 No provider procedures requiring assistance completed. Patient did not have IV access ca1 during this emergency room visit. Administered Medications: 21:59 Drug: Phenergan 25 mg Route: PO; ca1 23:02 Follow up: Response: No adverse reaction; Nausea is decreased ca1 22:57 Drug: Dilaudid 1 mg Route: IM; Site: left deltoid; ca1 23:33 Follow up: Response: No adverse reaction; Pain is decreased ca1 Outcome: 22:52 Discharge ordered by . jrKetty 10/10 06:57 Patient left the ED. iw Signatures: Lisha Westfall RN RN Jaleesa Garza ds1 Kathy Hoyos, NAIF RN Buddy Kumar PA PA jr8 Monet Tate, NAIF RN ca1
[2018-10-09] MEDS ORDERED: HYDROMORPHONE HCL 1 MG/ML INJ ONE (23:11)
--- NOTE | 2018-10-10 06:06 | EKG ---
Test Date: 2018-10-09 Test Time: 20:52:29 Willow Worker: SY MEASUREMENT RESULTS: Intervals: Rate: 102 DE: 152 QRSD: 94 QT: 332 QTc: 432 [place]: P: 62 DE: 152 QRS: 52 T: 27 INTERPRETIVE STATEMENTS: Sinus tachycardia Otherwise normal ECG Compared to ECG 08/06/2018 14:23:36 Sinus rhythm no longer present T-wave abnormality no longer present Electronically Signed On 10-10-18 06:06:20 CDT by Miguel Romo
[2018-10-10 07:07] VITALS: TEMP 99.6
[2018-10-10 07:10] VITALS: BP 127/87; O2SAT 97
== END 2018-10-10 06:57 | disposition home or self-care (01) ==
LOC: ER 20:32
DX: R07.9 Chest pain, unspecified (principal); F17.210 Nicotine dependence, cigarettes, uncomplicated; I10 Essential (primary) hypertension; Z88.0 Allergy status to penicillin; Z88.1 Allergy status to other antibiotic agents; Z88.3 Allergy status to other anti-infective agents; Z88.5 Allergy status to narcotic agent; Z88.8 Allergy status to other drugs, medicaments and biological substances
CPT/HCPCS: 93005; 96372; 99284; J1170

== ENCOUNTER 2019-05-03 09:47 | Emergency (ER) | payer OTHER ==
--- NOTE | 2019-05-03 11:19 | EDPHYS ---
Physician Documentation [facility] Name: Roland Feldman Jr Age: 33 yrs Sex: Male : 1985 Arrival Date: 05/03/2019 Time: 09:49 Bed 2 Private MD: ED Physician Jan Vang HPI: 05/03 11:14 This 33 yrs old Black Male presents to ER via EMS with complaints of Fall Injury. gs 11:14 Details of fall: The patient fell from an upright position, transferring wheelchair. gs Onset: The symptoms/episode began/occurred acutely, just prior to arrival. Associated injuries: The patient sustained left hip. Severity of symptoms: At their worst the symptoms were moderate, in the emergency department the symptoms are unchanged. The patient has experienced similar episodes in the past, a few times. The patient has not recently seen a physician. Historical: - Allergies: 09:51 Amoxicillin; hb 09:51 Bactrim; hb 09:51 Ciprofloxacin; hb 09:51 CLAVULANIC ACID; hb 09:51 Doxycycline; hb 09:51 Levofloxacin; hb 09:51 Morphine; hb 09:51 PENICILLINS; hb 09:51 Toradol; hb 09:51 TRIMETHOPRIM; hb 09:51 Vancomycin; hb 09:51 Zofran; hb 09:51 Demerol; hb - Home Meds: 09:51 Celexa 20 mg Oral tab 1 tab once daily [Active]; fentanyl 25 mcg/hr Topical pt72 1 hb patch every 72 hours [Active]; Pepcid 20 mg Oral tab 1 tab once daily [Active]; Percocet 10-325 mg Oral tab 1 tab every 6 hours [Active]; Reglan 10 mg Oral tab 1 tab once daily [Active]; Wellbutrin SR 150 mg Oral TbER 1 tab 2 times per day [Active]; - PMHx: 09:51 Asthma; Cerebral Palsy; cluster headaches; decubitus ulcers on feet; GERD; hb Hydrocephalus; Hypertension; spina bifida; - PSHx: 09:51 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 - Social history:: Smoking status: Patient/guardian denies using tobacco. - Ebola Screening: : No symptoms or risks identified at this time. ROS: 11:14 All other systems are negative. gs Exam: 11:14 Head/Face: Normocephalic, atraumatic. Neck: Trachea midline, no thyromegaly or masses gs palpated, and no cervical lymphadenopathy. Supple, full range of motion without nuchal rigidity, or vertebral point tenderness. No Meningismus. Cardiovascular: Regular rate and rhythm with a normal S1 and S2. No gallops, murmurs, or rubs. Normal PMI, no JVD. No pulse deficits. Respiratory: Lungs have equal breath sounds bilaterally, clear to auscultation and percussion. No rales, rhonchi or wheezes noted. No increased work of breathing, no retractions or nasal flaring. Abdomen/GI: Soft, non-tender, with normal bowel sounds. No distension or tympany. No guarding or rebound. No evidence of tenderness throughout. Back: No spinal tenderness. No costovertebral tenderness. Full range of motion. 11:14 Constitutional: The patient appears alert, awake. 11:14 Musculoskeletal/extremity: Extremities: noted in the left hip: pain, tenderness, There is no evidence of deformity, Perfusion: the patient is normally perfused throughout. 11:14 Skin: Exam negative for acute changes. Vital Signs: 09:50 BP 128 / 97; Pulse 102; Resp 18 S; Temp 98.0(TE); Pulse Ox 97% on R/A; Weight 154.22 kg aa5 (R); Pain 10/10; 10:45 BP 101 / 78; Pulse 91; Resp 17 S; Pulse Ox 100% ; aa5 12:20 BP 104 / 71; Pulse 93; Resp 18 S; Pulse Ox 96% on R/A; aa5 MDM: 10:05 Patient medically screened. gs 11:14 Differential diagnosis: abrasion, contusion, fracture, sprain. Data reviewed: vital gs signs, nurses notes. Counseling: I had a detailed discussion with the patient and/or guardian regarding: the historical points, exam findings, and any diagnostic results supporting the discharge/admit diagnosis, the need for outpatient follow up. Response to treatment: the patient's symptoms have markedly improved after treatment, and as a result, I will discharge patient. 05/03 09:59 Order name: Hip Left 2 View XRAY; Complete Time: 12:33 05/03 09:59 Order name: Pelvis XRAY; Complete Time: 12:33 05/03 11:45 Order name: Diet Heart Healthy; Complete Time: 11:46 aa5 Administered Medications: No medications were administered Disposition: 05/03/19 11:18 Discharged to Home. Impression: Contusion of left hip. - Condition is Stable. - Discharge Instructions: Contusion. - Medication Reconciliation Form, Thank You Letter, Antibiotic Education, Prescription Opioid Use form. - Follow up: Palmer Robledo MD; When: 2 - 3 days; Reason: Re-evaluation by your physician. Signatures: Dispatcher [employer] EDChristin Solomon RN RN aa5 Brittany Loya RN RN Jan Vang MD MD Corrections: (The following items were deleted from the chart) 12:48 11:18 05/03/2019 11:18 Discharged to Home. Impression: Contusion of left hip. Condition aa5 is Stable. Forms are Medication Reconciliation Form, Thank You Letter, Antibiotic Education, Prescription Opioid Use. Follow up: Palmer Robledo; When: 2 - 3 days; Reason: Re-evaluation by your physician.
--- NOTE | 2019-05-03 11:19 | ER ---
Nurse's Notes [facility] Name: Roland Feldman Jr Age: 33 yrs Sex: Male : 1985 Arrival Date: 05/03/2019 Time: 09:49 Bed 2 Private MD: Diagnosis: Contusion of left hip Presentation: 05/03 09:50 Presenting complaint: EMS states: pt was transferring from bed to wheelchair and did aa5 not realize blanket was behind him so he slid down to the floor. Negative LOC. Pt c/o pain to back and left hip. Pt reports he took Percocet this morning. Pt states "I am at [facility] for wound care". Transition of care: patient was received from another setting of care (long-term care facility), [facility]. Onset of symptoms was May 03, 2019. Risk Assessment: Do you want to hurt yourself or someone else? Patient reports no desire to harm self or others. Initial Sepsis Screen: Does the patient meet any 2 criteria? No. Patient's initial sepsis screen is negative. Does the patient have a suspected source of infection? No. Patient's initial sepsis screen is negative. Care prior to arrival: None. 09:50 Acuity: YUKI 4 aa5 09:50 Method Of Arrival: EMS: [facility] aa5 Historical: - Allergies: 09:51 Amoxicillin; hb 09:51 Bactrim; hb 09:51 Ciprofloxacin; hb 09:51 CLAVULANIC ACID; hb 09:51 Doxycycline; hb 09:51 Levofloxacin; hb 09:51 Morphine; hb 09:51 PENICILLINS; hb 09:51 Toradol; hb 09:51 TRIMETHOPRIM; hb 09:51 Vancomycin; hb 09:51 Zofran; hb 09:51 Demerol; hb - Home Meds: 09:51 Celexa 20 mg Oral tab 1 tab once daily [Active]; fentanyl 25 mcg/hr Topical pt72 1 hb patch every 72 hours [Active]; Pepcid 20 mg Oral tab 1 tab once daily [Active]; Percocet 10-325 mg Oral tab 1 tab every 6 hours [Active]; Reglan 10 mg Oral tab 1 tab once daily [Active]; Wellbutrin SR 150 mg Oral TbER 1 tab 2 times per day [Active]; - PMHx: 09:51 Asthma; Cerebral Palsy; cluster headaches; decubitus ulcers on feet; GERD; hb Hydrocephalus; Hypertension; spina bifida; - PSHx: 09:51 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 - Social history:: Smoking status: Patient/guardian denies using tobacco. - Ebola Screening: : No symptoms or risks identified at this time. Screenin:50 Abuse screen: Denies threats or abuse. Denies injuries from another. Nutritional hb screening: No deficits noted. Tuberculosis screening: No symptoms or risk factors identified. Fall Risk Total Smith Fall Scale indicates High Risk Score (45 or more points). Fall prevention measures have been instituted. Side Rails Up X 2 Frequent Obs/Assessments Occuring As available patient and family educated on Fall Prevention Program and Strategies. Assessment: 09:50 General: Appears comfortable, obese, Behavior is calm, cooperative. Pain: Complains of aa5 pain in lumbar area, left low back and right low back and left hip Pain does not radiate. Pain currently is 10 out of 10 on a pain scale. Quality of pain is described as sharp, Pain began post fall Is continuous. Neuro: Level of Consciousness is awake, alert, obeys commands, Oriented to person, place, time, situation. Cardiovascular: Heart tones S1 S2 present Rhythm is regular. Respiratory: Airway is patent Respiratory effort is even, unlabored, Respiratory pattern is regular, symmetrical. GI: Abdomen is obese, Bowel sounds present X 4 quads. : [place] in place to gravity drainage. EENT: No signs and/or symptoms were reported regarding the EENT system. Derm: Skin is pink, warm \\T\\ dry. 09:50 Musculoskeletal: Pt is wheelchair bound. aa5 10:51 Reassessment: Patient appears in no apparent distress at this time. Patient is alert, hb oriented x 3, equal unlabored respirations, skin warm/dry/pink. Patient is alert/active/playful, equal unlabored respirations, skin warm/dry/pink. 11:00 Reassessment: Patient is alert, oriented x 3, equal unlabored respirations, skin aa5 warm/dry/pink. Patient states symptoms have not improved. Pt currently requesting pain medication, pt states "I can only have Dilaudid can you please tell the doctor", notified pt I will notify MD of request. Awaiting x-rays. X-ray contacted. MD was notified of pt's request. . 11:41 Reassessment: Report given to Jackie at [facility] and she states [place] [id number] [facility] will be here in approximately 1 hour to transfer pt back to [facility]. . 12:23 Reassessment: Pt sitting up in bed eating lunch, pt tolerating well. Awaiting EMS for aa5 transport back to shelter. . 12:40 Reassessment: Patient is alert, oriented x 3, equal unlabored respirations, skin aa5 warm/dry/pink. Patient states feeling better. Vital Signs: 09:50 BP 128 / 97; Pulse 102; Resp 18 S; Temp 98.0(TE); Pulse Ox 97% on R/A; Weight 154.22 kg aa5 (R); Pain 10/10; 10:45 BP 101 / 78; Pulse 91; Resp 17 S; Pulse Ox 100% ; aa5 12:20 BP 104 / 71; Pulse 93; Resp 18 S; Pulse Ox 96% on R/A; aa5 ED Course: 09:49 Patient arrived in ED. aa5 09:50 Arm band placed on. aa5 09:51 Triage completed. aa5 09:51 Patient has correct armband on for positive identification. Bed in low position. Call hb light in reach. Side rails up X2. 09:51 Patient maintains SpO2 saturation greater than 95% on room air. Thermoregulation: warm hb blanket given to patient. 09:53 Christin Vick, NAIF is Primary Nurse. aa5 09:55 Jan Vang MD is Attending Physician. gs 11:16 Hip Left 2 View XRAY In Process Unspecified. EDMS 11:16 Pelvis XRAY In Process Unspecified. EDMS 11:16 Palmer Robledo MD is Referral Physician. gs 11:25 Note: DIFFICULT PATIENT DUE TO BODY HABITUS AND BEING OBESE, SMOOTH TRANSFER FROM [facility] STRETCHER TO X RAY TABLE ON AND BACK, BEST IMAGES OBTAINED, PT TOLERATED EXAM. 12:40 No provider procedures requiring assistance completed. Patient did not have IV access aa5 during this emergency room visit. Administered Medications: No medications were administered Outcome: 11:18 Discharge ordered by . gs 12:40 Discharged to shelter. Report called to Jackie Report given to [facility] aa5 12:40 Condition: stable 12:40 Instructed on discharge instructions, follow up and referral plans. Demonstrated understanding of instructions, follow-up care. 12:48 Patient left the ED. aa5 Signatures: Dispatcher [employer] EDMS Sophia Giang 1 Christin Vick RN RN aa5 Brittany Loya RN RN Jan Vang MD MD Corrections: (The following items were deleted from the chart) :52 09:50 Presenting complaint: EMS states: pt was transferring from bed to wheelchair and aa5 did not realize blanket was behind him so he slid down to the floor. Negative LOC. Pt c/o pain to back and left hip. Pt reports he took Percocet this morning. aa5 :52 09:50 Transition of care: patient was not received from another setting of care. aa5 aa5 10:54 10:45 BP 101 / 78; Pulse 91bpm; Resp 07bpm; Pulse Ox 100%; hb aa5
--- NOTE | 2019-05-03 11:36 | RAD REPORT ---
EXAM DESCRIPTION: RAD - Pelvis - 05/03/2019 11:16 am CLINICAL HISTORY: Pelvic pain status post injury FINDINGS: Chronic right hip subluxation No fracture or dislocation left hip
--- NOTE | 2019-05-03 11:37 | RAD REPORT ---
EXAM DESCRIPTION: RAD - Hip Left 2 View - 05/03/2019 11:16 am CLINICAL HISTORY: Left hip pain status post injury FINDINGS: Chronic right hip subluxation No fracture or dislocation left hip
[2019-05-03 12:53] VITALS: TEMP 98
[2019-05-03 12:56] VITALS: BP 104/71; O2SAT 96
== END 2019-05-03 12:48 | disposition home or self-care (01) ==
LOC: ER 09:47
DX: S70.02XA Contusion of left hip, initial encounter (principal); W05.0XXA Fall from non-moving wheelchair, initial encounter; Y93.89 Activity, other specified; Y92.9 Unspecified place or not applicable; Z88.0 Allergy status to penicillin; Z88.1 Allergy status to other antibiotic agents; Z88.3 Allergy status to other anti-infective agents; Z88.5 Allergy status to narcotic agent; Z88.8 Allergy status to other drugs, medicaments and biological substances; I10 Essential (primary) hypertension; G80.9 Cerebral palsy, unspecified; J45.909 Unspecified asthma, uncomplicated
CPT/HCPCS: 72170; 99284

== ENCOUNTER 2019-07-21 10:19 | Emergency (ER) | payer OTHER ==
--- OUTSIDE RECORDS SUMMARY | 2019-07-21 10:22 | XMS REPORT ---
:1985 Author Organization [employer] Care Team Providers Name Role Phone Gamble, [...] headache, R51 Active unspecified headache type Problem STEM SETTER (ventriculoperitoneal) shunt Z98.2 Active status Medications No Known Medications Results No Known Results Summary Purpose [facility] [employer] Submission
--- OUTSIDE RECORDS SUMMARY | 2019-07-21 10:22 | XMS REPORT ---
[...] hydrocephalus Problem Bipolar depression F31.30 Active Assessment EHS ENGINEER (ventriculoperitoneal) shunt Z98.2 Active status Problem Depression [...] spina bifida with Q05.2 Active hydrocephalus Problem EHS ENGINEER (ventriculoperitoneal) shunt Z98.2 Active status Problem Nicotine dependence F17.200 Active Medications Medication Code Code Instructions Start End Status Dosage System Date Date Collagenase [facility] [address]-27 250 UNIT/GM Active 1 application Externally to affected Once a day area Macrobid [facility] 58775384305 100 MG Orally Active 1 capsule every 12 hrs with food Tylenol with [facility] 15013157501 300-60 MG Active 1 tablet as Codeine #4 Orally every 6 needed hrs Citalopram [facility] 05699996556 10 MG Orally January Active 1 tablet Hydrobromide Once a day 2017 Pantoprazole [facility] 79380071142 40 MG Orally Active 1 tablet Sodium Once a day Seroquel [facility] 84320115415 25 MG Orally January Active 1 tablet Once a day at 16, bedtime 2017 Results No Known Results Summary Purpose [employer] Submission
--- OUTSIDE RECORDS SUMMARY | 2019-07-21 10:22 | XMS REPORT ---
:1985 Author Organization [employer] Care Team Providers Name Role Phone Gamble, [...] headache, R51 Active unspecified headache type Problem PROGRAM LEAD (ventriculoperitoneal) shunt Z98.2 Active status Medications No Known Medications Results No Known Results Summary Purpose [employer] Submission
--- OUTSIDE RECORDS SUMMARY | 2019-07-21 10:22 | XMS REPORT ---
[...] tension-type headache, not G44.219 Active intractable Assessment INSTRUMENT AND CONTROL SERVICE PERSON (ventriculoperitoneal) shunt Z98.2 Active status Assessment Ulcer [...] vomiting not specified, unspecified vomiting type Problem INSTRUMENT AND CONTROL SERVICE PERSON (ventriculoperitoneal) shunt Z98.2 Active status Medications Medication Code Code Instructions Start End Status Dosage System Date Date Tylenol with [facility] 28573340730 300-60 MG Active 1 tablet as Codeine #4 Orally every 6 needed hrs Macrobid [facility] 79150398655 100 MG Orally Active 1 capsule every 12 hrs with food Pantoprazole ND 00489160600 40 MG Orally Active 1 tablet Sodium Once a day Collagenase [facility] [address]-54 250 UNIT/GM Active 1 application Externally to affected Once a day area Results No Known Results Summary Purpose [employer] Submission
--- OUTSIDE RECORDS SUMMARY | 2019-07-21 10:23 | XMS REPORT ---
:1985 Author Organization [facility] Address [facility] [address] Lee [address] [place] [id number] Care Team Providers Name Role Phone JAQUELIN GENAO Unavailable Unavailable Problems This patient has no known problems. Allergies, Adverse Reactions, Alerts This patient has no known allergies or adverse reactions. Medications This patient has no known medications. Results Test Description Test Time Test Comments Text Results Atomic Results Result Comments BLOOD CULTURE 2016-12-28 16:22:00 Test Item Value Reference Range Comments CULTURE (BEAKER) (test bxhv=7350) No growth in 5 days BLOOD [id number] 16:22:00 Test Item Value Reference Range Comments CULTURE (BEAKER) (test rwpx=3605) No growth in 5 days (MANUAL DIFFERENTIAL)2016-12-25 22:29:00 Test Item Value Reference Range Comments TOTAL COUNTED (BEAKER) (test mjuh=7565) WBC MORPHOLOGY (BEAKER) (test wuhe=712) Normal PLT MORPHOLOGY (BEAKER) (test ecno=294) Normal RBC MORPHOLOGY (BEAKER) (test tbcv=580) Normal CBC W/PLT COUNT & AUTO [id number] 22:28:00 Test Item Value Reference Range Comments WHITE BLOOD CELL COUNT (BEAKER) (test wroc=697) 7.3 K/ L 4.0-10.0 RED BLOOD CELL COUNT (BEAKER) (test amkc=167) 5.09 M/ L 4.20-5.80 HEMOGLOBIN (BEAKER) (test xwnq=072) 13.0 GM/DL 13.0-16.8 HEMATOCRIT (BEAKER) (test mktc=716) 42.3 % 40.0-50.0 MEAN CORPUSCULAR VOLUME (BEAKER) (test clyx=233) 83.0 fL 82.0-98.0 MEAN CORPUSCULAR HEMOGLOBIN (BEAKER) (test 25.6 pg 27.0-33.0 bkkw=113) MEAN CORPUSCULAR HEMOGLOBIN CONC (BEAKER) (test 30.8 GM/DL 32.0-36.0 vnqd=000) RED CELL DISTRIBUTION WIDTH (BEAKER) (test 18.0 % 10.3-14.2 pbcu=428) PLATELET COUNT (BEAKER) (test hgxe=692) 331 K/CU MM 150-430 MEAN PLATELET VOLUME (BEAKER) (test jcyw=791) 8.5 fL 6.5-10.5 NUCLEATED RED BLOOD CELLS (BEAKER) (test 0 /100 WBC 0-0 olsa=551) NEUTROPHILS RELATIVE PERCENT (BEAKER) (test 65 % bwwb=390) LYMPHOCYTES RELATIVE PERCENT (BEAKER) (test 23 % jzca=888) MONOCYTES RELATIVE PERCENT (BEAKER) (test 8 % pskt=720) EOSINOPHILS RELATIVE PERCENT (BEAKER) (test 3 % xqtw=097) BASOPHILS RELATIVE PERCENT (BEAKER) (test 1 % xdjd=730) NEUTROPHILS ABSOLUTE COUNT (BEAKER) (test 4.75 K/ L 1.80-8.00 pwlx=204) LYMPHOCYTES ABSOLUTE COUNT (BEAKER) (test 1.68 K/ L 1.48-4.50 vudd=354) MONOCYTES ABSOLUTE COUNT (BEAKER) (test 0.55 K/ L 0.00-1.30 vmbc=184) EOSINOPHILS ABSOLUTE COUNT (BEAKER) (test 0.24 K/ L 0.00-0.50 cxhr=284) BASOPHILS ABSOLUTE COUNT (BEAKER) (test 0.05 K/ L 0.00-0.20 dvnp=696) 0.000.520.000.000.000.00BASI METABOLIC [id number] 11:11:00 Test Item Value Reference Range Comments SODIUM (BEAKER) (test 138 meq/L 136-145 dlzp=579) POTASSIUM (BEAKER) (test 4.0 meq/L 3.5-5.1 usxa=885) CHLORIDE (BEAKER) (test 108 meq/L 98-107 lxhj=177) CO2 (BEAKER) (test 23 meq/L 22-29 wkwy=490) BLOOD UREA NITROGEN 11 mg/dL 7-21 (BEAKER) (test hcoj=700) CREATININE (BEAKER) (test 0.74 mg/dL 0.57-1.25 sdzq=318) GLUCOSE RANDOM (BEAKER) 124 mg/dL 70-105 (test rcyu=847) CALCIUM (BEAKER) (test 8.9 mg/dL 8.4-10.2 ypsg=144) EGFR (BEAKER) (test 150 mL/min/1.73 sq m ESTIMATED GFR IS NOT oebo=2318) ACCURATE CREATININE CLEARANCE IN PREDICTING GLOMERULAR FILTRATION RATE. ESTIMATED GFR IS NOT APPLICABLE FOR DIALYSIS PATIENTS. URINE [id number] 09:56:00 Test Item Value Reference Range Comments CULTURE (BEAKER) (test aile=5752) <10,000 col/mL skin marilee COMPREHENSIVE METABOLIC [id number] 08:49:00 Test Item Value Reference Range Comments TOTAL PROTEIN (BEAKER) 7.3 gm/dL 6.0-8.3 (test oooq=965) ALBUMIN (BEAKER) (test 3.3 g/dL 3.5-5.0 csky=1162) ALKALINE PHOSPHATASE 89 U/L 40-150 (BEAKER) (test mfoy=791) BILIRUBIN TOTAL (BEAKER) 1.4 mg/dL 0.2-1.2 (test rtbb=639) SODIUM (BEAKER) (test 137 meq/L 136-145 eegf=000) POTASSIUM (BEAKER) (test 3.7 meq/L 3.5-5.1 nwnx=099) CHLORIDE (BEAKER) (test 108 meq/L 98-107 kjsm=296) CO2 (BEAKER) (test 17 meq/L 22-29 zffe=820) BLOOD UREA NITROGEN 12 mg/dL 7-21 (BEAKER) (test zfla=828) CREATININE (BEAKER) (test 0.78 mg/dL 0.57-1.25 wxeb=271) GLUCOSE RANDOM (BEAKER) 119 mg/dL 70-105 (test qtdn=194) CALCIUM (BEAKER) (test 8.6 mg/dL 8.4-10.2 irzx=499) AST (SGOT) (BEAKER) (test 13 U/L 5-34 lmko=042) ALT (SGPT) (BEAKER) (test 28 U/L 6-55 ficf=270) EGFR (BEAKER) (test 141 mL/min/1.73 sq ESTIMATED GFR IS NOT wwww=2838) m ACCURATE CREATININE CLEARANCE IN PREDICTING GLOMERULAR FILTRATION RATE. ESTIMATED GFR IS NOT APPLICABLE FOR DIALYSIS PATIENTS. CBC W/PLT COUNT & AUTO [id number] 08:46:00 Test Item Value Reference Range Comments WHITE BLOOD CELL COUNT (BEAKER) (test dmmp=286) 9.4 K/ L 4.0-10.0 RED BLOOD CELL COUNT (BEAKER) (test shtn=552) 4.79 M/ L 4.20-5.80 HEMOGLOBIN (BEAKER) (test mhjb=078) 12.8 GM/DL 13.0-16.8 HEMATOCRIT (BEAKER) (test grpg=648) 40.0 % 40.0-50.0 MEAN CORPUSCULAR VOLUME (BEAKER) (test gxmo=701) 83.4 fL 82.0-98.0 MEAN CORPUSCULAR HEMOGLOBIN (BEAKER) (test 26.7 pg 27.0-33.0 vmjq=123) MEAN CORPUSCULAR HEMOGLOBIN CONC (BEAKER) (test 32.0 GM/DL 32.0-36.0 sbzz=824) RED CELL DISTRIBUTION WIDTH (BEAKER) (test 18.2 % 10.3-14.2 qsve=704) PLATELET COUNT (BEAKER) (test wbrc=312) 313 K/CU MM 150-430 MEAN PLATELET VOLUME (BEAKER) (test qteb=963) 8.6 fL 6.5-10.5 NUCLEATED RED BLOOD CELLS (BEAKER) (test 0 /100 WBC 0-0 hhga=573) NEUTROPHILS RELATIVE PERCENT (BEAKER) (test 70 % emxu=088) LYMPHOCYTES RELATIVE PERCENT (BEAKER) (test 16 % zbtq=827) MONOCYTES RELATIVE PERCENT (BEAKER) (test 12 % szjd=589) EOSINOPHILS RELATIVE PERCENT (BEAKER) (test 1 % mazf=652) BASOPHILS RELATIVE PERCENT (BEAKER) (test 1 % qcph=204) NEUTROPHILS ABSOLUTE COUNT (BEAKER) (test 6.54 K/ L 1.80-8.00 mocr=514) LYMPHOCYTES ABSOLUTE COUNT (BEAKER) (test 1.50 K/ L 1.48-4.50 hoto=057) MONOCYTES ABSOLUTE COUNT (BEAKER) (test 1.13 K/ L 0.00-1.30 rnhu=095) EOSINOPHILS ABSOLUTE COUNT (BEAKER) (test 0.13 K/ L 0.00-0.50 wwwv=421) BASOPHILS ABSOLUTE COUNT (BEAKER) (test 0.06 K/ L 0.00-0.20 fzen=720) 0.00URINALYSIS W/ [id number] 20:36:00 Test Item Value Reference Range Comments COLOR (BEAKER) (test rlqq=950) Yellow CLARITY (BEAKER) (test vwcf=976) Hazy SPECIFIC GRAVITY UA (BEAKER) (test uwqa=959) 1.012 1.001-1.035 PH UA (BEAKER) (test kojv=550) 5.5 5.0-8.0 PROTEIN UA (BEAKER) (test jxiu=948) 100 mg/dL Negative GLUCOSE UA (BEAKER) (test woms=186) Negative Negative KETONES UA (BEAKER) (test xkya=237) Negative Negative BILIRUBIN UA (BEAKER) (test aoke=110) Negative Negative BLOOD UA (BEAKER) (test qoku=051) Moderate Negative NITRITE UA (BEAKER) (test docy=640) Negative Negative LEUKOCYTE ESTERASE UA (BEAKER) (test ieit=853) Large Negative UROBILINOGEN UA (BEAKER) (test kazz=740) 3.0 mg/dL 0.2-1.0 RBC UA (BEAKER) (test sirh=105) 19 /HPF WBC UA (BEAKER) (test jvcv=250) 182 /HPF SOURCE(BEAKER) (test uxdc=2388) BASIC METABOLIC [id number] 17:00:00 Test Item Value Reference Range Comments SODIUM (BEAKER) (test 140 meq/L 136-145 wgij=770) POTASSIUM (BEAKER) (test 3.7 meq/L 3.5-5.1 xaqj=599) CHLORIDE (BEAKER) (test 112 meq/L 98-107 wzix=949) CO2 (BEAKER) (test 17 meq/L 22-29 vlfo=658) BLOOD UREA NITROGEN 23 mg/dL 7-21 (BEAKER) (test yqxq=813) CREATININE (BEAKER) (test 1.00 mg/dL 0.57-1.25 fdeu=509) GLUCOSE RANDOM (BEAKER) 102 mg/dL 70-105 (test iuig=778) CALCIUM (BEAKER) (test 8.7 mg/dL 8.4-10.2 jpow=728) EGFR (BEAKER) (test 106 mL/min/1.73 sq m ESTIMATED GFR IS NOT yuqj=0539) ACCURATE CREATININE CLEARANCE IN PREDICTING GLOMERULAR FILTRATION RATE. ESTIMATED GFR IS NOT APPLICABLE FOR DIALYSIS PATIENTS. Specimen slightly ictericCBC W/PLT COUNT & AUTO [id number] 12:18 :00 Test Item Value Reference Range Comments WHITE BLOOD CELL COUNT (BEAKER) (test gzxx=460) 16.4 K/ L 4.0-10.0 RED BLOOD CELL COUNT (BEAKER) (test gqds=857) 5.22 M/ L 4.20-5.80 HEMOGLOBIN (BEAKER) (test vtrx=343) 14.4 GM/DL 13.0-16.8 HEMATOCRIT (BEAKER) (test lrox=078) 42.9 % 40.0-50.0 MEAN CORPUSCULAR VOLUME (BEAKER) (test fcpq=233) 82.2 fL 82.0-98.0 MEAN CORPUSCULAR HEMOGLOBIN (BEAKER) (test 27.5 pg 27.0-33.0 racj=684) MEAN CORPUSCULAR HEMOGLOBIN CONC (BEAKER) (test 33.5 GM/DL 32.0-36.0 rusv=471) RED CELL DISTRIBUTION WIDTH (BEAKER) (test 16.2 % 10.3-14.2 ovvg=586) PLATELET COUNT (BEAKER) (test wxeq=646) 329 K/CU MM 150-430 MEAN PLATELET VOLUME (BEAKER) (test mrng=764) 8.2 fL 6.5-10.5 NUCLEATED RED BLOOD CELLS (BEAKER) (test 0 /100 WBC 0-0 aqeb=772) NEUTROPHILS RELATIVE PERCENT (BEAKER) (test 83 % mdyq=260) LYMPHOCYTES RELATIVE PERCENT (BEAKER) (test 7 % fzbc=080) MONOCYTES RELATIVE PERCENT (BEAKER) (test 9 % biif=074) EOSINOPHILS RELATIVE PERCENT (BEAKER) (test 0 % vxox=001) BASOPHILS RELATIVE PERCENT (BEAKER) (test 0 % mxcv=433) NEUTROPHILS ABSOLUTE COUNT (BEAKER) (test 1.62 K/ L 1.80-8.00 icdb=275) LYMPHOCYTES ABSOLUTE COUNT (BEAKER) (test 1.15 K/ L 1.48-4.50 lbae=640) MONOCYTES ABSOLUTE COUNT (BEAKER) (test 1.56 K/ L 0.00-1.30 ikrs=459) EOSINOPHILS ABSOLUTE COUNT (BEAKER) (test 0.01 K/ L 0.00-0.50 lsez=217) BASOPHILS ABSOLUTE COUNT (BEAKER) (test 0.02 K/ L 0.00-0.20 xbmg=886) (MANUAL DIFFERENTIAL)2016-12-23 12:18:00 Test Item Value Reference Range Comments TOTAL COUNTED (BEAKER) (test ssbn=6374) WBC MORPHOLOGY (BEAKER) (test vctd=636) Normal PLT MORPHOLOGY (BEAKER) (test zpjc=248) Normal RBC MORPHOLOGY (BEAKER) (test tynf=201) Normal
--- OUTSIDE RECORDS SUMMARY | 2019-07-21 10:23 | XMS REPORT ---
[...] ulcer stage Problem Paraplegia G82.20 Active Assessment GARMENT SORTER (ventriculoperitoneal) shunt Z98.2 Active status Problem Nausea [...] headache, R51 Active unspecified headache type Problem GARMENT SORTER (ventriculoperitoneal) shunt Z98.2 Active status Problem Episodic tension-type headache, not G44.219 Active intractable Problem Lumbar spina bifida with Q05.2 Active hydrocephalus Problem Foot ulcer L97.509 Active Problem Nicotine dependence F17.200 Active Problem Dependence on wheelchair Z99.3 Active Medications Medication Code Code Instructions Start End Status Dosage System Date Date Macrobid [facility] 49739245585 100 MG Orally Active 1 capsule every 12 hrs with food Tylenol with [facility] 02699920992 300-60 MG Active 1 tablet as Codeine #4 Orally every 6 needed hrs Pantoprazole ND 50944697319 40 MG Orally Active 1 tablet Sodium Once a day Citalopram [facility] 84824920000 10 MG Orally Active 1 tablet Hydrobromide Once a day Collagenase [facility] [address]-50 250 UNIT/GM Active 1 application Externally to affected Once a day area Seroquel [facility] 78733765234 25 MG Orally Active 1 tablet Once a day at bedtime Results No Known Results Summary Purpose eClinicalWorks Submission
[2019-07-21] MEDS ORDERED: PROMETHAZINE INJ 25 MG/ML AMP ONE (10:30)
[2019-07-21] MEDS ORDERED: FAMOTIDINE 20 MG/2 ML VIAL IV ONE (10:31)
[2019-07-21] MEDS ORDERED: NA CHLORIDE 0.9% 1,000 ML ONE (10:31)
[2019-07-21] MEDS ORDERED: HYDROMORPHONE HCL 1 MG/ML INJ ONE ×3 (10:44→17:15)
[2019-07-21 10:53] LABS: Absolute Lymphocytes (CBC) 1.7 K/uL (0.7-4.9); Basophils % 0.5 % (0-1.3); Hematocrit 51.4 % (39.6-49.0); Lymphocytes % 19.7 % (15.3-44.8); MPV 9.4 fL (7.6-11.3); RBC Red Blood Cell Count 5.91 M/uL (4.33-5.43)
--- NOTE | 2019-07-21 11:13 | RAD REPORT ---
EXAM DESCRIPTION: CT - Head Brain Wo Cont - 07/21/2019 11:01 am CLINICAL HISTORY: blurry vision and ELISE Headache, drowsiness COMPARISON: Head Brain Wo Cont dated 08/01/2018; Head Brain Wo Cont dated 05/22/2018; Head C Spine Mpr Wo Con dated 09/03/2018 TECHNIQUE: All CT scans are performed using dose optimization technique as appropriate and may inclu de automated exposure control or mA/KV adjustment according to patient size. FINDINGS: No intracranial hemorrhage or extra-axial fluid collection.Two ventriculostomy tubes are p resent, unchanged in position.The frontal horns of the lateral ventricle superior slightly more promi nent in size relative to comparative study. This could indicate early sign of shunt malfunction. The paranasal sinuses and mastoids are clear. The calvarium is intact. IMPRESSION: The frontal horns of the lateral ventricles appear slightly more prominent in size kade red to prior examinations. This may represent an early sign of shunt malfunction. No acute hemorrhag e seen.
[2019-07-21 11:23] LABS: Albumin 3.5 g/dL (3.4-5.0); Bilirubin Direct 0.2 mg/dL (0-0.2); Bilirubin Total 0.5 mg/dL (0.2-1.0); Potassium 4.5 mmol/L (3.5-5.1); Protein, Total 9.3 g/dL (6.4-8.2)
--- NOTE | 2019-07-21 12:58 | ER ---
Nurse's Notes [facility] Name: Roland Feldman Jr Age: 34 yrs Sex: Male : 1985 Arrival Date: 07/21/2019 Time: 10:21 Bed 2 Private MD: Diagnosis: STOKER MECHANIC Shunt Malfunction Presentation: 07/21 10:23 Presenting complaint: EMS states: patient has been having dizziness, blurred vision, mg2 n/v for the last 3 days. he had the same symptoms before when his [employer] shunt is clogged. Transition of care: patient was received from another setting of care (long-term care facility), [facility]. Onset of symptoms was July 19, 2019. Risk Assessment: Do you want to hurt yourself or someone else? Patient reports no desire to harm self or others. Initial Sepsis Screen: Does the patient meet any 2 criteria? No. Patient's initial sepsis screen is negative. Does the patient have a suspected source of infection? No. Patient's initial sepsis screen is negative. Care prior to arrival: None. 10:23 Method Of Arrival: EMS: [facility] mg2 10:23 Acuity: YUKI 2 mg2 Historical: - Allergies: 10:23 Amoxicillin; hb 10:23 Bactrim; hb 10:23 Ciprofloxacin; hb 10:23 CLAVULANIC ACID; hb 10:23 Demerol; hb 10:23 Doxycycline; hb 10:23 Levofloxacin; hb 10:23 Morphine; hb 10:23 PENICILLINS; hb 10:23 Toradol; hb 10:23 TRIMETHOPRIM; hb 10:23 Vancomycin; hb 10:23 Zofran; hb - Home Meds: 10:23 Celexa 20 mg Oral tab 1 tab once daily [Active]; fentanyl 25 mcg/hr Topical pt72 1 hb patch every 72 hours [Active]; Pepcid 20 mg Oral tab 1 tab once daily [Active]; Percocet 10-325 mg Oral tab 1 tab every 6 hours [Active]; Reglan 10 mg Oral tab 1 tab once daily [Active]; Wellbutrin SR 150 mg Oral TbER 1 tab 2 times per day [Active]; - PMHx: 10:23 Asthma; Cerebral Palsy; cluster headaches; decubitus ulcers on feet; GERD; hb Hydrocephalus; Hypertension; spina bifida; - PSHx: 10:23 STOKER MECHANIC shunt; Heel Surgery L; Cholecystectomy; hb - Immunization history:: Adult Immunizations up to date. - Social history:: Smoking status: Patient uses tobacco products, smokes one-half pack cigarettes per day. - Ebola Screening: : No symptoms or risks identified at this time. Screenin:24 Abuse screen: Denies threats or abuse. Denies injuries from another. Nutritional hb screening: No deficits noted. Tuberculosis screening: No symptoms or risk factors identified. Fall Risk Total Smith Fall Scale indicates High Risk Score (45 or more points). Fall prevention measures have been instituted. Side Rails Up X 2 Frequent Obs/Assessments Occuring As available patient and family educated on Fall Prevention Program and Strategies. Assessment: 10:35 General: Appears in no apparent distress. comfortable, Behavior is calm, cooperative. mg2 Pain: Complains of pain in head Pain does not radiate. Pain currently is 9 out of 10 on a pain scale. Quality of pain is described as aching, Pain began gradually, 2-3 days ago. Is intermittent. Neuro: Level of Consciousness is awake, alert, obeys commands, Oriented to person, place, time, situation. Neuro: Reports blurred vision headache. Cardiovascular: Capillary refill < 3 seconds Patient's skin is warm and dry. Respiratory: Airway is patent Respiratory effort is even, unlabored, Respiratory pattern is regular, symmetrical. GI: Abdomen is round Reports nausea, vomiting. : No signs and/or symptoms were reported regarding the genitourinary system. EENT: No signs and/or symptoms were reported regarding the EENT system. Derm: Skin is intact, is healthy with good turgor, Skin is pink, warm \T\ dry. normal. Musculoskeletal: Circulation, motion, and sensation intact. Capillary refill < 3 seconds, Swelling present in right foot, left foot, right leg and left leg. 11:18 Reassessment: Patient appears in no apparent distress at this time. Patient and/or hb family updated on plan of care and expected duration. Pain level reassessed. Patient is alert, oriented x 3, equal unlabored respirations, skin warm/dry/pink. 12:05 Reassessment: Patient appears in no apparent distress at this time. Patient and/or mg2 family updated on plan of care and expected duration. Pain level reassessed. Patient is alert, oriented x 3, equal unlabored respirations, skin warm/dry/pink. 12:59 Reassessment: Patient appears in no apparent distress at this time. No changes from hb previously documented assessment. Patient and/or family updated on plan of care and expected duration. Pain level reassessed. 13:45 Reassessment: Patient appears in no apparent distress at this time. No changes from hb previously documented assessment. Patient and/or family updated on plan of care and expected duration. Pain level reassessed. 14:28 Reassessment: Pt reports headache and body pain 03/24, BGL 378. Dr Warner notified, hb repeat Dilaudid and insulin administered as ordered. Transfer pending. 15:20 Reassessment: report given to NAIF [facility]. mg2 15:45 Reassessment: Patient appears in no apparent distress at this time. Patient and/or hb family updated on plan of care and expected duration. Pain level reassessed. Patient is alert, oriented x 3, equal unlabored respirations, skin warm/dry/pink. 16:45 Reassessment: Patient appears in no apparent distress at this time. Patient and/or hb family updated on plan of care and expected duration. Pain level reassessed. Patient is alert, oriented x 3, equal unlabored respirations, skin warm/dry/pink. Vital Signs: 10:23 BP 131 / 83; Pulse 114; Resp 16; Temp 97.1(TE); Pulse Ox 96% ; Weight 136.08 kg; Height hb 4 ft. 11 in. (149.86 cm); Pain 9/10; 11:18 BP 111 / 71; Pulse 97; Resp 16; Pulse Ox 96% ; hb 12:05 BP 124 / 94; Pulse 102; Resp 18; Pulse Ox 99% on 3 lpm NC; mg2 12:15 Pulse Ox 92% on 3 lpm NC; hb 12:45 BP 144 / 91; Pulse 111; Resp 15; Temp 97.3(TE); Pulse Ox 97% on 4 lpm NC; hb 14:15 BP 146 / 82; Pulse 102; Resp 17; Pulse Ox 97% on 4 lpm NC; Pain 9/10; hb 15:45 BP 136 / 76; Pulse 105; Resp 19; Pulse Ox 97% on 4 lpm NC; hb 16:45 BP 122 / 63; Pulse 100; Resp 17; Pulse Ox 96% on 4 lpm NC; hb 10:23 Body Mass Index 60.59 (136.08 kg, 149.86 cm) hb ED Course: 10:21 Patient arrived in ED. hb 10:22 Prince Warner MD is Attending Physician. kdr 10:23 Horacio Velazquez, NAIF is Primary Nurse. mg2 10:24 Arm band placed on. hb 10:24 Patient has correct armband on for positive identification. Bed in low position. Call hb light in reach. Side rails up X2. 10:25 Triage completed. mg2 10:35 No provider procedures requiring assistance completed. Inserted saline lock: 22 gauge mg2 in right forearm, using aseptic technique. Blood collected. 11:11 CT Head Brain wo Cont In Process Unspecified. 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 Pulse ox on. NIBP on. Door closed. Warm blanket given. Repositioned mg2 patient. 12:29 contacted [facility], pt was denied due to no capacity at this time, per kush. bd 12:38 contacted [facility], pt denied due to facility being on saturation, per jeffrey perdomo. 13:13 attempted transfer to [facility]. bd 14:19 Shuntogram XRAY In Process Unspecified. EDMS 17:27 Patient transferred, IV remains in place. mg2 Administered Medications: 10:33 Drug: Pepcid 20 mg Route: IVP; Site: right forearm; mg2 11:10 Follow up: Response: No adverse reaction hb 10:34 Drug: NS 0.9% 1000 ml Route: IV; Rate: 1 bolus; Site: right forearm; mg2 11:30 Follow up: Response: No adverse reaction; IV Status: Completed infusion; IV Intake: hb 1000ml 10:34 Drug: Phenergan 12.5 mg Route: IVP; Site: right forearm; mg2 11:10 Follow up: Response: No adverse reaction hb 10:46 Drug: Dilaudid 1 mg Route: IVP; Site: right forearm; hb 11:25 Follow up: Response: RASS: Drowsy (-1) hb 13:22 Drug: Insulin Regular Human 10 units {Co-Signature: iw (Kathy Hoyos RN).} Route: mg2 IVP; Site: right forearm; 14:20 Follow up: Response: No adverse reaction; Blood sugar is lowered hb 14:27 Drug: Dilaudid 1 mg Route: IVP; Site: right forearm; hb 17:27 Follow up: Response: No adverse reaction; Marked relief of symptoms mg2 14:29 Drug: Insulin Regular Human 5 units {Co-Signature: mg2 (Horacio Velazquez RN).} Route: hb IVP; Site: right forearm; 17:27 Follow up: Response: No adverse reaction; Blood sugar is lowered mg2 17:27 Drug: Dilaudid 1 mg Route: IVP; Site: right forearm; hb 17:28 Follow up: Response: Medication administered at discharge. hb Point of Care Testing: Blood Glucose: 14:22 Blood Glucose: 378 mg/dL; hb Ranges: Intake: 11:30 IV: 1000ml; Total: 1000ml. hb Outcome: 12:56 ER care complete, transfer ordered by . kdr 17:27 Transferred by ground EMS to [facility], Transfer form completed. mg2 17:27 Condition: stable 17:27 Instructed on the need for transfer, Demonstrated understanding of instructions. 17:28 Patient left the ED. mg2 Signatures: Dispatcher [employer] EDMS Amanda Lopez Kevin, MD MD [facility] Brittany Loya RN RN Horacio Velazquez RN RN mg2 Kathy Hoyos RN iw Horacio Velazquez RN mg2 Corrections: (The following items were deleted from the chart) 13:55 13:45 Reassessment: Patient appears in no apparent distress at this time. hb hb
--- NOTE | 2019-07-21 12:59 | EDPHYS ---
Physician Documentation [facility] Name: Roland Feldman Jr Age: 34 yrs Sex: Male : 1985 Arrival Date: 07/21/2019 Time: 10:21 Bed 2 Private MD: ED Physician Prince Warner HPI: 07/21 12:29 This 34 yrs old Black Male presents to ER via EMS with complaints of Nausea/Vomiting, kdr Headache. 12:29 The patient presents to the emergency department with nausea, vomiting, that is kdr intermittent. Onset: The symptoms/episode began/occurred gradually. 12:32 Onset: The symptoms/episode began/occurred gradually, 3 day(s) ago. Possible causes: TOUR NARRATOR kdr Shunt malfunction. The symptoms are aggravated by nothing. The symptoms are alleviated by nothing. Associated signs and symptoms: Pertinent positives: nausea, vomiting, Blurry vision. Severity of symptoms: At their worst the symptoms were mild moderate just prior to arrival, in the emergency department the symptoms are unchanged. The patient has experienced similar episodes in the past, a few times. The patient has not recently seen a physician. The patient has a TOUR NARRATOR shunt and was seen for possible TOUR NARRATOR shunt issues in May for similar problems. Historical: - Allergies: 10:23 Amoxicillin; hb 10:23 Bactrim; hb 10:23 Ciprofloxacin; hb 10:23 CLAVULANIC ACID; hb 10:23 Demerol; hb 10:23 Doxycycline; hb 10:23 Levofloxacin; hb 10:23 Morphine; hb 10:23 PENICILLINS; hb 10:23 Toradol; hb 10:23 TRIMETHOPRIM; hb 10:23 Vancomycin; hb 10:23 Zofran; hb - Home Meds: 10:23 Celexa 20 mg Oral tab 1 tab once daily [Active]; fentanyl 25 mcg/hr Topical pt72 1 hb patch every 72 hours [Active]; Pepcid 20 mg Oral tab 1 tab once daily [Active]; Percocet 10-325 mg Oral tab 1 tab every 6 hours [Active]; Reglan 10 mg Oral tab 1 tab once daily [Active]; Wellbutrin SR 150 mg Oral TbER 1 tab 2 times per day [Active]; - PMHx: 10:23 Asthma; Cerebral Palsy; cluster headaches; decubitus ulcers on feet; GERD; hb Hydrocephalus; Hypertension; spina bifida; - PSHx: 10:23 TOUR NARRATOR shunt; Heel Surgery L; Cholecystectomy; hb - Immunization history:: Adult Immunizations up to date. - Social history:: Smoking status: Patient uses tobacco products, smokes one-half pack cigarettes per day. - Ebola Screening: : No symptoms or risks identified at this time. ROS: 12:32 Constitutional: Negative for fever, chills, and weight loss, Eyes: Negative for injury, kdr pain, redness, and discharge, Neck: Negative for injury, pain, and swelling, Cardiovascular: Negative for chest pain, palpitations, and edema, Respiratory: Negative for shortness of breath, cough, wheezing, and pleuritic chest pain, Abdomen/GI: Negative for abdominal pain, nausea, vomiting, diarrhea, and constipation, Back: Negative for injury and pain, : Negative for injury, bleeding, discharge, and swelling, MS/Extremity: Negative for injury and deformity, Skin: Negative for injury, rash, and discoloration, Psych: Negative for depression, anxiety, suicide ideation, homicidal ideation, and hallucinations, Allergy/Immunology: Negative for hives, rash, and allergies, Endocrine: Negative for neck swelling, polydipsia, polyuria, polyphagia, and marked weight changes, Hematologic/Lymphatic: Negative for swollen nodes, abnormal bleeding, and unusual bruising. 12:32 Neuro: Positive for headache, visual changes, Negative for altered mental status, hearing loss, numbness, seizure activity, speech changes, syncope, near syncope, tinnitus. Exam: 12:32 Constitutional: This is a well developed, well nourished patient who is awake, alert, kdr and in no acute distress. Head/Face: Normocephalic, atraumatic. Eyes: Pupils equal round and reactive to light, extra-ocular motions intact. Lids and lashes normal. Conjunctiva and sclera are non-icteric and not injected. Cornea within normal limits. Periorbital areas with no swelling, redness, or edema. Neck: Trachea midline, no thyromegaly or masses palpated, and no cervical lymphadenopathy. Supple, full range of motion without nuchal rigidity, or vertebral point tenderness. No Meningismus. Chest/axilla: Normal chest wall appearance and motion. Nontender with no deformity. No lesions are appreciated. Cardiovascular: Regular rate and rhythm with a normal S1 and S2. No gallops, murmurs, or rubs. Normal PMI, no JVD. No pulse deficits. Respiratory: Lungs have equal breath sounds bilaterally, clear to auscultation and percussion. No rales, rhonchi or wheezes noted. No increased work of breathing, no retractions or nasal flaring. Abdomen/GI: Soft, non-tender, with normal bowel sounds. No distension or tympany. No guarding or rebound. No evidence of tenderness throughout. Back: No spinal tenderness. No costovertebral tenderness. Full range of motion. Skin: Warm, dry with normal turgor. Normal color with no rashes, no lesions, and no evidence of cellulitis. Psych: Awake, alert, with orientation to person, place and time. Behavior, mood, and affect are within normal limits. 12:32 Neuro: Orientation: is normal, Mentation: is normal, Memory: is normal, Cranial nerves: no acute changes, Cerebellar function: no acute changes, Motor: moves all fours, Sensation: no acute changes, Gait: not tested. Vision blurry. Vital Signs: 10:23 BP 131 / 83; Pulse 114; Resp 16; Temp 97.1(TE); Pulse Ox 96% ; Weight 136.08 kg; Height hb 4 ft. 11 in. (149.86 cm); Pain 9/10; 11:18 BP 111 / 71; Pulse 97; Resp 16; Pulse Ox 96% ; hb 12:05 BP 124 / 94; Pulse 102; Resp 18; Pulse Ox 99% on 3 lpm NC; mg2 12:15 Pulse Ox 92% on 3 lpm NC; hb 12:45 BP 144 / 91; Pulse 111; Resp 15; Temp 97.3(TE); Pulse Ox 97% on 4 lpm NC; hb 14:15 BP 146 / 82; Pulse 102; Resp 17; Pulse Ox 97% on 4 lpm NC; Pain 9/10; hb 15:45 BP 136 / 76; Pulse 105; Resp 19; Pulse Ox 97% on 4 lpm NC; hb 16:45 BP 122 / 63; Pulse 100; Resp 17; Pulse Ox 96% on 4 lpm NC; hb 10:23 Body Mass Index 60.59 (136.08 kg, 149.86 cm) MDM: 12:56 Patient medically screened. kdr 12:57 Data reviewed: vital signs, nurses notes, lab test result(s), radiologic studies. kdr Counseling: I had a detailed discussion with the patient and/or guardian regarding: the historical points, exam findings, and any diagnostic results supporting the discharge/admit diagnosis, lab results, radiology results, the need to transfer to another facility. 16:08 ED course: The patient continues to be stable in the ED. VSS, He still c/o mild ELISE but kdr has not requested any further medication for his ELISE. 07/21 10:23 Order name: Basic Metabolic Panel; Complete Time: 12:29 kdr 07/21 10:23 Order name: CBC with Diff; Complete Time: 11:16 kdr 07/21 10:23 Order name: Creatinine for Radiology; Complete Time: 11:16 kdr 07/21 10:23 Order name: Hepatic Function; Complete Time: 12:29 [facility] 07/21 10:23 Order name: Lipase; Complete Time: 12:29 [facility] 07/21 14:31 Order name: Glucose, Ancillary Testing; Complete Time: 17:57 EDMS 07/21 10:37 Order name: CT Head Brain wo Cont; Complete Time: 11:16 [facility] 07/21 12:37 Order name: Shuntogram XRAY; Complete Time: 17:57 [facility] 07/21 10:23 Order name: IV Saline Lock; Complete Time: 10:33 kdr 07/21 10:23 Order name: Labs collected and sent; Complete Time: 10:33 [facility] Administered Medications: 10:33 Drug: Pepcid 20 mg Route: IVP; Site: right forearm; mg2 11:10 Follow up: Response: No adverse reaction hb 10:34 Drug: NS 0.9% 1000 ml Route: IV; Rate: 1 bolus; Site: right forearm; mg2 11:30 Follow up: Response: No adverse reaction; IV Status: Completed infusion; IV Intake: hb 1000ml 10:34 Drug: Phenergan 12.5 mg Route: IVP; Site: right forearm; mg2 11:10 Follow up: Response: No adverse reaction hb 10:46 Drug: Dilaudid 1 mg Route: IVP; Site: right forearm; hb 11:25 Follow up: Response: RASS: Drowsy (-1) hb 13:22 Drug: Insulin Regular Human 10 units {Co-Signature: iw (Kathy Hoyos RN).} Route: mg2 IVP; Site: right forearm; 14:20 Follow up: Response: No adverse reaction; Blood sugar is lowered hb 14:27 Drug: Dilaudid 1 mg Route: IVP; Site: right forearm; hb 17:27 Follow up: Response: No adverse reaction; Marked relief of symptoms mg2 14:29 Drug: Insulin Regular Human 5 units {Co-Signature: mg2 (Horacio Velazquez RN).} Route: hb IVP; Site: right forearm; 17:27 Follow up: Response: No adverse reaction; Blood sugar is lowered mg2 17:27 Drug: Dilaudid 1 mg Route: IVP; Site: right forearm; hb 17:28 Follow up: Response: Medication administered at discharge. hb Point of Care Testing: Blood Glucose: 14:22 Blood Glucose: 378 mg/dL; hb Ranges: Critical Glucose Levels:Adult <50 mg/dl or >400 mg/dl <40 mg/dl or >180 mg/dl Disposition: 07/21/19 12:[address] [facility]. Diagnosis is TOUR NARRATOR Shunt Malfunction. - Reason for transfer: Higher level of care. - Accepting physician is Ryan. - Condition is Fair. - Problem is an acute exacerbation. - Symptoms are unchanged. Signatures: Dispatcher [employer] Prince Baldwin MD MD kdr Brittany Loya RN RN Horacio Velazquez RN RN mg2 Kathy Hoyos RN iw Horacio Velazquez RN mg2 Corrections: (The following items were deleted from the chart) 14:19 12:56 07/21/2019 12:56 Transfer ordered to [facility]. kdr Diagnosis is TOUR NARRATOR Shunt Malfunction. Reason for transfer: Higher level of care. Accepting physician is wilbert. Condition is Fair. Problem is an acute exacerbation. Symptoms are unchanged. kdr 17:28 14:19 07/21/2019 12:[address] [facility]. Diagnosis is mg2 TOUR NARRATOR Shunt Malfunction. Reason for transfer: Higher level of care. Accepting physician is Ryan. Condition is Fair. Problem is an acute exacerbation. Symptoms are unchanged. kdr
[2019-07-21] MEDS ORDERED: INSULIN -REGULAR HUMAN 50 UNIT/0.5 ML ML ONE ×2 (13:23→14:24)
--- NOTE | 2019-07-21 14:33 | RAD REPORT ---
EXAM DESCRIPTION: RAD - Shuntogram - 07/21/2019 2:18 pm CLINICAL HISTORY: Blurry vision FINDINGS: Comparison is made to a July 2018 exam Functional and nonfunctional shunt tubing is again demonstrated. 2 kinks of the tubing are present within the right abdomen. The tip of the peritoneal shunt lies within the pelvis near midline
[2019-07-21 18:00] VITALS: TEMP 97.3
[2019-07-21 18:05] VITALS: BP 122/63; O2SAT 96
== END 2019-07-21 17:28 | disposition short-term general hospital (02) ==
LOC: ER 10:19
DX: T85.09XA Other mechanical complication of ventricular intracranial (communicating) shunt, initial encounter (principal); Z88.6 Allergy status to analgesic agent; Z88.1 Allergy status to other antibiotic agents; Z88.0 Allergy status to penicillin; K21.9 Gastro-esophageal reflux disease without esophagitis; I10 Essential (primary) hypertension; F17.210 Nicotine dependence, cigarettes, uncomplicated
CPT/HCPCS: 96361; 85025; 80048; 36415; 82947; 80076; 83690; 70450; 75809; 49427; 96375; 96374; 99285; J2550; J1170 ×3; J7030

== ENCOUNTER 2020-01-07 12:17 | Emergency (ER) | payer MEDICAID, OTHER ==
--- OUTSIDE RECORDS SUMMARY | 2020-01-07 14:20 | XMS REPORT | Clinical Summary ---
:1985 Author Organization [facility] Address [address] [place] [address] Care Team Providers Name Role Phone Sharpless Primary Care Provider Allergies Active Allergy Reactions Severity Noted Date Comments Sulfamethoxazole-Trimethoprim Hives High 12/23/2016 Levofloxacin Hives High 12/23/2016 Morphine Hives High 12/23/2016 Sesame Seed Hives 12/23/2016 Ketorolac Rash High 12/23/2016 Vancomycin Analogues Rash High 12/23/2016 Ondansetron Hcl (Pf) Nausea And Vomiting 12/23/2016 Medications Medication Sig Dispensed Refills Start Date End Date Status oxyCODONE-acetami Take 1 tablet by 0 Active nophen (PERCOCET) mouth every 4 (four) 10-325 mg per hours as needed for tablet Pain. buPROPion Take 1 tablet (150 mg 30 tablet 0 07/31/2019 021 Active (WELLBUTRIN XL) total) by mouth 150 MG 24 hr daily. tablet citalopram Take 1 tablet (40 mg 30 tablet 11 07/31/2019 021 Active (CELEXA) 40 MG total) by mouth tablet daily. insulin lispro Inject 0-12 Units 10 mL 0 07/30/20192020 Active (HUMALOG) 100 subcutaneously 3 unit/mL injection (three) times daily before meals. insulin lispro Inject 25 Units 10 mL 0 07/30/2019 07/29/19 21 Active (HUMALOG) 100 subcutaneously 3 unit/mL injection (three) times daily before meals. zinc Apply 5 g topically 2 0 07/30/2019 Active oxide-petrolatum (two) times daily. (CRITIC-AID) 20-51 % Pste topical paste meropenem Inject 1 g 0 07/30/2019 Active (MERREM) MBP 1 gm intravenously every 8 in 100 mL NS (eight) hours. insulin glargine Inject 58 Units 10 mL 0 07/30/2019 Active (LANTUS) 100 subcutaneously 2 unit/mL injection (two) times daily Use as directed. traZODone Take 1 tablet (100 mg 0 07/30/2019 020 (DESYREL) 100 MG total) by mouth tablet nightly for 30 days. Active Problems Problem Noted Date Hyperglycemia without ketosis 07/21/2019 Spina bifida 12/24/2016 Pyelonephritis 12/23/2016 Encounters Date Type Specialty Care Team Description 07/21/2019 - Hospital Encounter General Internal Ryan, Hyper glycemia without ketosis; 07/30/2019 Medicine MD Marie Shunt malfunction, sequela; Norma, Type 2 diabetes mellitus with hyperglycemia, unspecified whether mcc insulin use ([facility]); MD Enio Diabetes mellitus, new onset ([facility]); Veronica Salinas, Type 2 diabete s mellitus treated with insulin ([facility]); Proteus infecti on; ESBL (extended spectrum beta-lactamase) producing bacteria infection; Polymicrobial b acterial infection; Pyelonephritis; Spina bifida of sacral region with hydrocephalus ([facility]); Decubitus ulcer of ankle, right, unstageable (HCC); Pressure ulcer of right heel, stage 3 (HCC); Pressure ulcer of left heel, stage 2 ([facility]); Eschar of heel 07/21/2019 Travel 07/21/2019 Documentation Internal Medicine Marie Davis MD after 01/06/2019 Social History Tobacco Use Types Packs/Day Years Used Date Current Every Day Smoker Cigarettes 0.5 Tobacco Cessation: Ready to Quit: No Sex Assigned at Date Recorded Not on file Job Start Date Occupation Industry Not on file Not on file Not on file Travel History Travel Start Travel End No recent travel history available. Last Filed Vital Signs Vital Sign Reading Time Taken Blood Pressure 136/78 07/30/2019 12:58 PM SUPPORT REPRESENTATIVE Pulse 96 07/30/2019 12:58 PM SUPPORT REPRESENTATIVE Temperature 35.8 C (96.4 F) 07/30/2019 12:58 PM SUPPORT REPRESENTATIVE Respiratory Rate 18 07/30/2019 12:58 PM SUPPORT REPRESENTATIVE Oxygen Saturation 96% 07/30/2019 12:58 PM SUPPORT REPRESENTATIVE Inhaled Oxygen Concentration - - Weight - - Height - - Body Mass Index - - Plan of Treatment Health Maintenance Due Date Last Done Comments PNEUMOCOCCAL VACCINE 2-64 YEARS AT 1991 RISK (1 of 1 - PPSV23) HEMOGLOBIN A1C 10/23/2019 07/24/2019, 07/23/2019, 07/22/2019 INFLUENZA VACCINE (Season Ended) 2020 Procedures Procedure Name Priority Date/Time Associated Comments Diagnosis RHYTHM STRIP - SCAN 08/07/2019 2:11 PM SUPPORT REPRESENTATIVE RHYTHM STRIP - SCAN 07/31/2019 3:32 PM SUPPORT REPRESENTATIVE POCT-GLUCOSE METER Routine 07/30/2019 12:52 Resul ts for this PM SUPPORT REPRESENTATIVE procedure are i n the results section. POCT-GLUCOSE METER Routine 07/30/2019 9:03 Resul ts for this AM SUPPORT REPRESENTATIVE procedure are i n the results section. POCT-GLUCOSE METER Routine 07/29/2019 8:45 Resul ts for this PM SUPPORT REPRESENTATIVE procedure are i n the results section. POCT-GLUCOSE METER Routine 07/29/2019 4:35 Resul ts for this PM SUPPORT REPRESENTATIVE procedure are i n the results section. POCT-GLUCOSE METER Routine 07/29/2019 12:08 Resul ts for this PM SUPPORT REPRESENTATIVE procedure are i n the results section. POCT-GLUCOSE METER Routine 07/29/2019 8:35 Resul ts for this AM SUPPORT REPRESENTATIVE procedure are i n the results section. POCT-GLUCOSE METER Routine 07/28/2019 9:02 Resul ts for this PM SUPPORT REPRESENTATIVE procedure are i n the results section. MR LOWER EXTREMITY Routine 07/28/2019 6:46 Resul ts for this WITHOUT IV CONTRAST PM SUPPORT REPRESENTATIVE procedur e are in LEFT the results section. MR LOWER EXTREMITY Routine 07/28/2019 6:46 Resul ts for this WITHOUT IV CONTRAST PM SUPPORT REPRESENTATIVE procedur e are in RIGHT the results section. POCT-GLUCOSE METER Routine 07/28/2019 12:42 Resul ts for this PM SUPPORT REPRESENTATIVE procedure are i n the results section. POCT-GLUCOSE METER Routine 07/28/2019 8:24 Resul ts for this AM SUPPORT REPRESENTATIVE procedure are i n the results section. POCT-GLUCOSE METER Routine 07/27/2019 8:57 Resul ts for this PM SUPPORT REPRESENTATIVE procedure are i n the results section. POCT-GLUCOSE METER Routine 07/27/2019 6:03 Resul ts for this PM SUPPORT REPRESENTATIVE procedure are i n the results section. POCT-GLUCOSE METER Routine 07/27/2019 12:18 Resul ts for this PM SUPPORT REPRESENTATIVE procedure are i n the results section. POCT-GLUCOSE METER Routine 07/27/2019 7:56 Resul ts for this AM SUPPORT REPRESENTATIVE procedure are i n the results section. POCT-GLUCOSE METER Routine 07/26/2019 9:14 Resul ts for this PM SUPPORT REPRESENTATIVE procedure are i n the results section. POCT-GLUCOSE METER Routine 07/26/2019 5:22 Resul ts for this PM SUPPORT REPRESENTATIVE procedure are i n the results section. POCT-GLUCOSE METER Routine 07/26/2019 11:16 Resul ts for this AM SUPPORT REPRESENTATIVE procedure are i n the results section. POCT-GLUCOSE METER Routine 07/26/2019 8:07 Resul ts for this AM SUPPORT REPRESENTATIVE procedure are i n the results section. POCT-GLUCOSE METER Routine 07/25/2019 9:20 Resul ts for this PM SUPPORT REPRESENTATIVE procedure are i n the results section. POCT-GLUCOSE METER Routine 07/25/2019 5:34 Resul ts for this PM SUPPORT REPRESENTATIVE procedure are i n the results section. POCT-GLUCOSE METER Routine 07/25/2019 11:56 Resul ts for this AM SUPPORT REPRESENTATIVE procedure are i n the results section. POCT-GLUCOSE METER Routine 07/25/2019 8:11 Resul ts for this AM SUPPORT REPRESENTATIVE procedure are i n the results section. CBC W/PLT COUNT & AUTO Routine 07/25/2019 6:26 R esults for this DIFFERENTIAL AM SUPPORT REPRESENTATIVE procedure are i n the results section. BASIC METABOLIC PANEL Routine 07/25/2019 6:26 Re sults for this (7) AM SUPPORT REPRESENTATIVE procedure are i n the results section. CBC W/PLT COUNT & AUTO Routine 07/25/2019 6:26 R esults for this DIFFERENTIAL AM SUPPORT REPRESENTATIVE procedure are i n the results section. POCT-GLUCOSE METER Routine 07/24/2019 7:43 Resul ts for this PM SUPPORT REPRESENTATIVE procedure are i n the results section. POCT-GLUCOSE METER Routine 07/24/2019 4:28 Resul ts for this PM SUPPORT REPRESENTATIVE procedure are i n the results section. POCT-GLUCOSE METER Routine 07/24/2019 11:18 Resul ts for this AM SUPPORT REPRESENTATIVE procedure are i n the results section. POCT-GLUCOSE METER Routine 07/24/2019 7:25 Resul ts for this AM SUPPORT REPRESENTATIVE procedure are i n the results section. CBC W/PLT COUNT & AUTO Routine 07/24/2019 4:47 R esults for this DIFFERENTIAL AM SUPPORT REPRESENTATIVE procedure are i n the results section. ISLET CELL AB TITER Routine 07/24/2019 4:47 Resu lts for this AM SUPPORT REPRESENTATIVE procedure are i n the results section. ISLET CELL AB SCREEN Routine 07/24/2019 4:47 Res ults for this AM SUPPORT REPRESENTATIVE procedure are i n the results section. BASIC METABOLIC PANEL Routine 07/24/2019 4:47 Re sults for this (7) AM SUPPORT REPRESENTATIVE procedure are i n the results section. CBC W/PLT COUNT & AUTO Routine 07/24/2019 4:47 R esults for this DIFFERENTIAL AM SUPPORT REPRESENTATIVE procedure are i n the results section. HEMOGLOBIN A1C Routine 07/24/2019 4:47 Results f or this AM SUPPORT REPRESENTATIVE procedure are i n the results section. LIPID PANEL Routine 07/24/2019 4:47 Results for this AM SUPPORT REPRESENTATIVE procedure are i n the results section. ISLET CELL AB SCR Routine 07/24/2019 4:47 Result s for this AM SUPPORT REPRESENTATIVE procedure are i n the results section. CRIS-65 Routine 07/24/2019 4:47 Results for this AM SUPPORT REPRESENTATIVE procedure are i n the results section. POCT-GLUCOSE METER Routine 07/23/2019 11:35 Resul ts for this PM SUPPORT REPRESENTATIVE procedure are i n the results section. PERIPHERAL VASCULAR 07/23/2019 9:24 REPORT - SCAN PM SUPPORT REPRESENTATIVE POCT-GLUCOSE METER Routine 07/23/2019 6:25 Resul ts for this PM SUPPORT REPRESENTATIVE procedure are i n the results section. POCT-GLUCOSE METER Routine 07/23/2019 3:09 Resul ts for this PM SUPPORT REPRESENTATIVE procedure are i n the results section. BLOOD CULTURE STAT 07/23/2019 11:47 Results fo r this AM SUPPORT REPRESENTATIVE procedure are i n the results section. BLOOD CULTURE STAT 07/23/2019 11:47 Results fo r this AM SUPPORT REPRESENTATIVE procedure are i n the results section. POCT-GLUCOSE METER Routine 07/23/2019 10:18 Resul ts for this AM SUPPORT REPRESENTATIVE procedure are i n the results section. ARTERIAL DOPPLER LEGS Routine 07/23/2019 9:35 Re sults for this BILATERAL AM SUPPORT REPRESENTATIVE procedure are i n the results section. (MANUAL DIFFERENTIAL) Routine 07/23/2019 4:07 Re sults for this AM SUPPORT REPRESENTATIVE procedure are i n the results section. CBC W/PLT COUNT & AUTO Routine 07/23/2019 4:07 R esults for this DIFFERENTIAL AM SUPPORT REPRESENTATIVE procedure are i n the results section. BASIC METABOLIC PANEL Routine 07/23/2019 4:07 Re sults for this (7) AM SUPPORT REPRESENTATIVE procedure are i n the results section. CBC W/PLT COUNT & AUTO Routine 07/23/2019 4:07 R esults for this DIFFERENTIAL AM SUPPORT REPRESENTATIVE procedure are i n the results section. HEMOGLOBIN A1C Routine 07/23/2019 4:07 Results f or this AM SUPPORT REPRESENTATIVE procedure are i n the results section. LIPID PANEL Routine 07/23/2019 4:07 Results for this AM SUPPORT REPRESENTATIVE procedure are i n the results section. POCT-GLUCOSE METER Routine 07/22/2019 9:41 Resul ts for this PM SUPPORT REPRESENTATIVE procedure are i n the results section. US ABDOMEN LIMITED STAT 07/22/2019 6:45 Resul ts for this PM SUPPORT REPRESENTATIVE procedure are i n the results section. POCT-GLUCOSE METER Routine 07/22/2019 6:27 Resul ts for this PM SUPPORT REPRESENTATIVE procedure are i n the results section. (CELLAVISION MANUAL STAT 07/22/2019 4:50 Resu lts for this DIFF) PM SUPPORT REPRESENTATIVE procedure are i n the results section. CBC W/PLT COUNT & AUTO STAT 07/22/2019 4:50 R esults for this DIFFERENTIAL PM SUPPORT REPRESENTATIVE procedure are i n the results section. CBC W/PLT COUNT & AUTO STAT 07/22/2019 4:50 R esults for this DIFFERENTIAL PM SUPPORT REPRESENTATIVE procedure are i n the results section. URINALYSIS W/ REFLEX STAT 07/22/2019 4:40 Res ults for this URINE CULTURE PM SUPPORT REPRESENTATIVE procedure are in the results section. POCT-GLUCOSE METER Routine 07/22/2019 4:15 Resul ts for this PM SUPPORT REPRESENTATIVE procedure are i n the results section. CT BRAIN WITHOUT IV STAT 07/22/2019 3:26 Resu lts for this CONTRAST PM SUPPORT REPRESENTATIVE procedure are i n the results section. XR SHUNT SERIES STAT 07/22/2019 2:49 Results for this PM SUPPORT REPRESENTATIVE procedure are i n the results section. POCT-GLUCOSE METER Routine 07/22/2019 11:23 Resul ts for this AM SUPPORT REPRESENTATIVE procedure are i n the results section. POCT-GLUCOSE METER Routine 07/22/2019 7:36 Resul ts for this AM SUPPORT REPRESENTATIVE procedure are i n the results section. HEMOGLOBIN A1C Routine 07/22/2019 7:08 Results f or this AM SUPPORT REPRESENTATIVE procedure are i n the results section. LIPID PANEL Routine 07/22/2019 7:08 Results for this AM SUPPORT REPRESENTATIVE procedure are i n the results section. BASIC METABOLIC PANEL Routine 07/22/2019 7:08 Re sults for this (7) AM SUPPORT REPRESENTATIVE procedure are i n the results section. TSH/FREE T4 IF Routine 07/22/2019 7:08 Results f or this INDICATED AM SUPPORT REPRESENTATIVE procedure are i n the results section. POCT-GLUCOSE METER Routine 07/22/2019 12:37 Resul ts for this AM SUPPORT REPRESENTATIVE procedure are i n the results section. DRUG SCREEN, URINE, Routine 07/22/2019 12:27 COMPREHENSIVE AM SUPPORT REPRESENTATIVE URINE CULTURE Routine 07/22/2019 12:27 Results fo r this AM SUPPORT REPRESENTATIVE procedure are i n the results section. WOUND CULTURE + GRAM Routine 07/22/2019 12:27 Res ults for this STAIN AM SUPPORT REPRESENTATIVE procedure are i n the results section. XR FOOT 2 VIEWS RIGHT Routine 07/21/2019 9:22 Re sults for this PM SUPPORT REPRESENTATIVE procedure are i n the results section. XR FOOT 2 VIEWS LEFT Routine 07/21/2019 9:22 Res ults for this PM SUPPORT REPRESENTATIVE procedure are i n the results section. POCT-GLUCOSE METER Routine 07/21/2019 8:52 Resul ts for this PM SUPPORT REPRESENTATIVE procedure are i n the results section. after 01/06/2019 Results RHYTHM STRIP - SCAN (08/07/2019 2:11 PM SUPPORT REPRESENTATIVE)Only the most recent of2 results within the time period is included. Narrative Performed At This result has an attachment that is no t available. POC-Glucose meter (07/30/2019 12:52 PM SUPPORT REPRESENTATIVE)Only the most recent of36 results within the time period is included. POC-Glucose Meter 140 (H)Comment: : TESTED 70 - 110 mg/dL [facility] AT [address] [facility], [address]: Post Acute Care Nurse/Head Athletic Trainer ID = [id number] for HOMERO AARON Specimen Blood Performing Organization Address City/State/Zipcode Phone Number [facility] [address] [place] [phone] CENTER MR lower extremity without IV contrast left side (07/28/2019 6:46 PM SUPPORT REPRESENTATIVE) Specimen Narrative Performed At FINAL REPORT [facility] MRI of the right and left hindfoot witho ut intravenous contrast History: Osteomyelitis, diabetic foot Comparison: Radiograph dated July 21, 2019 Technique: Multiplanar multisequence MRI of the right and left hindfoot was performed without intraveno us contrast using the hindfoot osteomyelitis protocol Findings: Right foot: Marked T1 and T2 hypointense soft tissue thickening is noted at the medial aspect of the right heel, likely to reflect scar tissue. There is also mild subcutaneous edema at the l ateral aspect of the mid foot and forefoot, incompletely imaged. No di screte drainable fluid collection is identified. There is no marrow signal abnormality to suggest osteomyelitis. There is a small nonspecific joint effusion at the ankle and subtalar joint. Scattered degenerative changes ar e noted. There is marked fatty atrophy of the dis darian leg and foot musculature. Severe flexor hallucis longus tendinopat hy. No tenosynovitis. Left foot: There is a large area of soft tissue def ect and granulation tissue at the posteromedial aspect of the heel, re aching the calcaneus, but there is no drainable fluid collection. Deformity is noted in the hindfoot, and the forefoot appears adduc lester. No acute fracture. No marrow signal abnormality is identified to indicate acute osteomyelitis. There is no significant j oint effusion. There is severe atrophy of the foot and distal leg musculature. No significant tenosynovitis identified. IMPRESSION: Granulation/scar tissue at the medial as pect of the heel bilaterally. No MR evidence of osteomyelitis. Severe muscle atrophy. Signed: Carly Garza MD Report Verified Date/Time:07/29/2019 09:12:01 Reading Location: [address] Reading Room Procedure Note Interface, External Ris In - 07/29/2019 9:14 AM SUPPORT REPRESENTATIVE FINAL REPORT MRI of the right and left hindfoot witho ut intravenous contrast History: Osteomyelitis, diabetic foot Comparison: Radiograph dated July 21, 2019 Technique: Multiplanar multisequence MRI of the right and left hindfoot was performed without intraveno us contrast using the hindfoot osteomyelitis protocol Findings: Right foot: Marked T1 and T2 hypointense soft tissue thickening is noted at the medial aspect of the right heel, likely to reflect scar tissue. There is also mild subcutaneous edema at the l ateral aspect of the mid foot and forefoot, incompletely imaged. No di screte drainable fluid collection is identified. There is no marrow signal abnormality to suggest osteomyelitis. There is a small nonspecific joint effusion at the ankle and subtalar joint. Scattered degenerative changes ar e noted. There is marked fatty atrophy of the dis darian leg and foot musculature. Severe flexor hallucis longus tendinopat hy. No tenosynovitis. Left foot: There is a large area of soft tissue def ect and granulation tissue at the posteromedial aspect of the heel, re aching the calcaneus, but there is no drainable fluid collection. Deformity is noted in the hindfoot, and the forefoot appears adduc lester. No acute fracture. No marrow signal abnormality is identified to indicate acute osteomyelitis. There is no significant j oint effusion. There is severe atrophy of the foot and distal leg musculature. No significant tenosynovitis identified. IMPRESSION: Granulation/scar tissue at the medial as pect of the heel bilaterally. No MR evidence of osteomyelitis. Severe muscle atrophy. Signed: Carly Garza MD Report Verified Date/Time: 07/29/2019 0 9:12:01 Reading Location: [facility] [id number] [facility] Reading Room Performing Organization Address City/State/Zipcode Phone Number [facility] MR lower extremity without IV contrast right side (07/28/2019 6:46 PM SUPPORT REPRESENTATIVE) Specimen Narrative Performed At FINAL REPORT [facility] MRI of the right and left hindfoot witho ut intravenous contrast History: Osteomyelitis, diabetic foot Comparison: Radiograph dated July 21, 2019 Technique: Multiplanar multisequence MRI of the right and left hindfoot was performed without intraveno us contrast using the hindfoot osteomyelitis protocol Findings: Right foot: Marked T1 and T2 hypointense soft tissue thickening is noted at the medial aspect of the right heel, likely to reflect scar tissue. There is also mild subcutaneous edema at the l ateral aspect of the mid foot and forefoot, incompletely imaged. No di screte drainable fluid collection is identified. There is no marrow signal abnormality to suggest osteomyelitis. There is a small nonspecific joint effusion at the ankle and subtalar joint. Scattered degenerative changes ar e noted. There is marked fatty atrophy of the dis darian leg and foot musculature. Severe flexor hallucis longus tendinopat hy. No tenosynovitis. Left foot: There is a large area of soft tissue def ect and granulation tissue at the posteromedial aspect of the heel, re aching the calcaneus, but there is no drainable fluid collection. Deformity is noted in the hindfoot, and the forefoot appears adduc lester. No acute fracture. No marrow signal abnormality is identified to indicate acute osteomyelitis. There is no significant j oint effusion. There is severe atrophy of the foot and distal leg musculature. No significant tenosynovitis identified. IMPRESSION: Granulation/scar tissue at the medial as pect of the heel bilaterally. No MR evidence of osteomyelitis. Severe muscle atrophy. Signed: Carly Garza MD Report Verified Date/Time:07/29/2019 09:12:01 Reading Location: [facility] [id number] [facility] Reading Room Procedure Note Interface, External Ris In - 07/29/2019 9:14 AM SUPPORT REPRESENTATIVE FINAL REPORT MRI of the right and left hindfoot witho ut intravenous contrast History: Osteomyelitis, diabetic foot Comparison: Radiograph dated July 21, 2019 Technique: Multiplanar multisequence MRI of the right and left hindfoot was performed without intraveno us contrast using the hindfoot osteomyelitis protocol Findings: Right foot: Marked T1 and T2 hypointense soft tissue thickening is noted at the medial aspect of the right heel, likely to reflect scar tissue. There is also mild subcutaneous edema at the l ateral aspect of the mid foot and forefoot, incompletely imaged. No di screte drainable fluid collection is identified. There is no marrow signal abnormality to suggest osteomyelitis. There is a small nonspecific joint effusion at the ankle and subtalar joint. Scattered degenerative changes ar e noted. There is marked fatty atrophy of the dis darian leg and foot musculature. Severe flexor hallucis longus tendinopat hy. No tenosynovitis. Left foot: There is a large area of soft tissue def ect and granulation tissue at the posteromedial aspect of the heel, re aching the calcaneus, but there is no drainable fluid collection. Deformity is noted in the hindfoot, and the forefoot appears adduc lester. No acute fracture. No marrow signal abnormality is identified to indicate acute osteomyelitis. There is no significant j oint effusion. There is severe atrophy of the foot and distal leg musculature. No significant tenosynovitis identified. IMPRESSION: Granulation/scar tissue at the medial as pect of the heel bilaterally. No MR evidence of osteomyelitis. Severe muscle atrophy. Signed: Carly Garza MD Report Verified Date/Time: 07/29/2019 0 9:12:01 Reading Location: [facility] B1 [id number] Ortho Con sult Reading Room Performing Organization Address City/State/Zipcode Phone Number [facility] CBC with platelet count + automated diff (07/25/2019 6:26 AM SUPPORT REPRESENTATIVE)Only the most recent of4 resultswithin the time period is included. WBC 7.2 3.5 - 10.5 K/L [facility] RBC 5.48 4.63 - 6.08 M/L [facility] Hemoglobin 15.1 13.7 - 17.5 GM/DL [facility] Hematocrit 46.4 40.1 - 51.0 % [facility] MCV 84.7 79.0 - 92.2 fL [facility] MCH 27.6 25.7 - 32.2 pg [facility] MCHC 32.5 32.3 - 36.5 GM/DL [facility] RDW 15.5 (H) 11.6 - 14.4 % [facility] Platelets 315 150 - 450 K/CU MM [facility] MPV 10.5 9.4 - 12.4 fL [facility] nRBC 0 0 - 0 /100 WBC [facility] % Neutros 62 % [facility] % Lymphs 26 % [facility] % Monos 9 % [facility] % Eos 2 % [facility] % Baso 0 % [facility] # Neutros 4.48 1.78 - 5.38 K/L [facility] # Lymphs 1.87 1.32 - 3.57 K/L [facility] # Monos 0.62 0.30 - 0.82 K/L [facility] # Eos 0.17 0.04 - 0.54 K/L [facility] # Baso 0.03 0.01 - 0.08 K/L [facility] Immature Granulocytes-Relative 1 0 - 1 % C [facility] Specimen Blood Performing Organization Address City/[facility] Phone Number [facility] [address] [place] [address] CENTER Basic Metabolic Panel (07/25/2019 6:26 AM SUPPORT REPRESENTATIVE)Only the most recent of4 results within the time period is included. Sodium 134 (L) 136 - 145 meq/L [facility] Potassium 4.6 3.5 - 5.1 meq/L [facility] Chloride 105 98 - 107 meq/L [facility] CO2 20 (L) 22 - 29 meq/L [facility] BUN 14 7 - 21 mg/dL [facility] Creatinine 0.97 0.57 - 1.25 mg/dL [facility] Glucose 429 (HH) 70 - 105 mg/dL [facility] Calcium 8.9 8.4 - 10.2 mg/dL [facility] EGFR 107Comment: ESTIMATED GFR IS mL/min/1.73 sq m [facility] NOT ACCURATE CREATININE [facility] CLEARANCE IN PREDICTING GLOMERULAR FILTRATION RATE. ESTIMATED GFR IS NOT APPLICABLE FOR DIALYSIS PATIENTS. Specimen Blood Narrative Performed At Post Acute Care Nurse ID - JANET F [facility] Performing Organization Address City/State/Zipcoor Phone Number [facility] [address] [place] [address] CENTER Islet Cell Ab Titer (07/24/2019 4:47 AM SUPPORT REPRESENTATIVE) Islet Cell Ab Titer TNP LESS THAN 1.25 [facility] Comment: JDF units [facility] Test Not Performed. Screening test Negative or N ot Detected. Titer not performed. NOTE:End point titers are compared to a sing le international reference standard and values are reported in JDF ([employer]) units. Specimen Blood Narrative Performed At Performing Lab [facility] [place] [address] [place] [address] Renée Drew MD, PhD, LUCIA Performing Organization Address [facility] Phone Number [facility] [place] [phone] INCORPORATED [address] [facility] Islet Cell Ab Screen (07/24/2019 4:47 AM SUPPORT REPRESENTATIVE) Islet Cell Ab NEGATIVE NEGATIVE [facility] Comment: This test was developed and its analytical perfo rmance characteristics have been determined by [employer] [facility]. It has not been cleared or approved by FDA. This assay has been validated pursuant to the CLIA regulations and is used for clinical purposes. Specimen Blood Narrative Performed At Performing Lab [place] [address] [address] [place] [address] Renée Drew MD, PhD, LUCIA Performing Organization Address [facility] Phone Number [facility] [place] [address] INCOR[facility]ATED [address] [facility] CRIS-65 (07/24/2019 4:47 AM SUPPORT REPRESENTATIVE) CRIS-65 <5 <5 IU/mL [facility] Comment: This test was performed using the GAD65 FRANTZ [facility] which is standardized against the International reference preparation 97/550. Specimen Blood Narrative Performed At Performing Lab [facility] [employer] [address] [place] [address] Renée Drew MD, PhD, LUCIA Performing Organization Address [facility]/Zipcode Phone Number [facility], [place] [address] INCORPORATED [address] [facility] Islet Cell AB Screen (07/24/2019 4:47 AM SUPPORT REPRESENTATIVE) Islet Cell Ab Profile Refer to individual Islet [facility] Cell Ab and/or Islet Cell [facility]P ORATED Ab Titer results. Specimen Blood Performing Organization Address [facility] Phone Number [facility], [place], [place] [address] INCORPORATED [address] [facility] Hemoglobin A1c (07/24/2019 4:47 AM SUPPORT REPRESENTATIVE)Only the most recent of3 resultswithin the time period is included. Hemoglobin A1C 10.4 (H) 4.3 - 6.1 % [facility] Specimen Blood Performing Organization Address [facility] Phone Number [address] [address] [place] Lipid panel (07/24/2019 4:47 AM SUPPORT REPRESENTATIVE)Only the most recent of3 resultswithin the time period is included. Triglycerides 692 mg/dL [facility] Cholesterol 196 mg/dL [facility] HDL 24 mg/dL [facility] Specimen Blood Narrative Performed At Calculated LDL not valid if triglyceride >400 [facility] mg/dL Triglyceride Reference Range: Low Risk <150 [id number] High Risk 200-499 Very High Risk>=500 Cholesterol Reference Range: Low Risk <200 [id number] High Risk>240 HDL Cholesterol Reference Range: Low Risk >=60 High Risk <40 LDL Cholesterol Reference Range: Optimal<100 Near Fnphigg240-882 [id number] Zxib465-124 Very High >=190 Post Acute Care Nurse ID - NTP Performing Organization Address [facility] Phone Number [address] [address] [place] PERIPHERAL VASCULAR REPORT - SCAN (07/23/2019 9:24 PM SUPPORT REPRESENTATIVE) Narrative Performed At This result has an attachment that is no t available. Blood culture (07/23/2019 11:47 AM SUPPORT REPRESENTATIVE)Only the most recent of2 resultswithin the time period is included. Result No growth in 5 days [facility] Specimen Blood Performing Organization Address City/State/Zipcode Phone Number [facility] [address] [place] [address] CENTER Arterial doppler legs bilateral (07/23/2019 9:35 AM SUPPORT REPRESENTATIVE) Ejection Fraction [facility] ECHO HEAR TLAB MKCKESSON CPACS Specimen Impressions Performed At Right Impression [facility] ECHO HEARTLAB MKCKESSON CPACS 1. The common femoral, profunda femoral, superficial femoral, popliteal, posterior tibial and anterior tibial arteries are patent with normal triphasic Doppler waveforms. 2. The peroneal artery is not visualized . 3. The PT and DP SHYAM's are not obtained due to non-Dopplerable signals, swelling and inability to position the l egs. 4. The great toe pressure and TBI are not obtained due to size of the great toe and swelling. 5. The digits have adequate flow by PPG waveforms. Left Impression 1. The common femoral, profunda femoral, superficial femoral, popliteal, posterior tibial and anterior tibial arteries are patent with normal triphasic Doppler waveforms. 2. The peroneal artery is not visualized . 3. The PT and DP SHYAM's are not obtained due to non-Dopplerable signals, swelling and inability to position the l egs. 4. The great toe pressure and TBI are not obtained due to size of the great toe and swelling. 5. The digits have adequate flow by PPG waveforms. Conclusions Summary Arterial pressures and Doppler waveforms were performed bilaterally. The arterial exam was technically difficult due to edema, body habitus and inability to position the legs, however, adequate Doppler waveforms were obtained. The right and left arterial systems were patent with triphasic Doppler waveforms and no evidence of obstruction. The peroneal artery was not visualized, bilaterally. The right and left SHYAM's were not obtained due to non-Dopplerable signals, swelling and inability to position the legs. The toe pressure and TBI's were not obtained due to size of the great toe and swelling, bilaterally. The digits had adequate flow by PPG waveforms bilaterally. Signature Velocities are measured in cm/s ; Diameters are measured in cm LE Duplex Measurements Right Left + + + + + + + + + + !Location ! !PSV !EDV!Waveform ! !PSV !EDV!Waveform ! + + + + + + + + + + !Mid Common Femoral ! !149 ! !Triphasic! !176 ! !Triphasic ! + + + + + + + + + + !Prox PFA ! !69.2! !Triphasic! !81.3! !Triphasic ! + + + + + + + + + + !Prox SFA ! !129 ! !Triphasic! !130 ! !Triphasic ! + + + + + + + + + + !Mid SFA ! !125 ! !Triphasic! !89.8! !Triphasic ! + + + + + + + + + + !Dist SFA ! !96.6! !Triphasic! !83.7! !Triphasic ! + + + + + + + + + + !Prox Popliteal ! !106 ! !Triphasic! !96.6! !Triphasic ! + + + + + + + + + + !Dist Popliteal ! !81.9! !Triphasic! !127 ! !Triphasic ! + + + + + + + + + + !Prox APPRAISER LAND ! !93.5! !Triphasic! !140 ! !Triphasic ! + + + + + + + + + + !Mid APPRAISER LAND ! !83.1! !Triphasic! !64.4! !Triphasic ! + + + + + + + + + + !Dist APPRAISER LAND ! !130 ! !Triphasic! !109 ! !Triphasic ! + + + + + + + + + + !Prox ROSAURA ! !125 ! !Triphasic! !92.9! !Triphasic ! + + + + + + + + + + !Mid ROSAURA ! !144 ! !Triphasic! !61.1! !Triphasic ! + + + + + + + + + + !Dist ROSAURA ! + + Narrative Performed At PV LAB - Lower Extremity Arterial Duplex SLE ECHO HEARTLAB MKCKESSON [facility] Demographics Patient NameVeronica FELDMAN of Study 07/23/2019 34 Visit [id number] Male of 1985 Referring Brad Christianapierre Room Number 2211 Physician Arts Manager Kody Merida Christ Physician Procedure Type of Study: Extremities Arteries: Lower Extremities Arterial Duplex, ARTERIAL DOPPLER LEGS, BILATERAL. Indications for Study:Heel ulcer. Patient Status:Routine. Study Location:Vascular Lab. Technical Quality:Technically Difficult. Risk Factors History of Disease + + + + !Diagnosis !Date!Comments ! + + + + !History/Risk!07/23/2019!Current smoker, Morbidly obese, Spina bifida, ! !Factors:!!Cer ebral palsy, Pressure ulcer! + + + + Procedure Note Interface, External Ris In - 07/23/2019 2:52 PM SUPPORT REPRESENTATIVE PV LAB - Lower Extremity Arterial Duplex Demographics Patient Name KAREN FELMDAN Chet e of Study 07/23/2019 Age 34 Visit Number [id number] Gen vaishali Male Accession Number [id number] Chet e of 1985 Referring Brad Villegas m Number [id number] Physician Arts Manager Kody Trinh Int [facility] Jackie Meirda, GABRIELLAS Nelda gleason MD Procedure Type of Study: Extremities Arteries: Lower Extremities Arterial Duplex, ARTERIAL DOPPLER LEGS, BILATERAL. Indications for Study:Heel ulcer. Patient Status:Routine. Study Location:Vascular Lab. Technical Quality:Technically Difficult. Risk Factors History of Disease + + + + !Diagnosis !Date !Comments ! + + + + !History/Risk !07/23/2019!Current smo ker, Morbidly obese, Spina bifida, ! !Factors: ! !Cerebral pa lsy, Pressure ulcer ! + + + + Impressions Right Impression 1. The common femoral, profunda femoral, superficial femoral, popliteal, posterior tibial and anterior tibial art eries are patent with normal triphasic Doppler waveforms. 2. The peroneal artery is not visualized . 3. The PT and DP SHYAM's are not obtained due to non-Dopplerable signals, swelling and inability to position the l egs. 4. The great toe pressure and TBI are no t obtained due to size of the great toe and swelling. 5. The digits have adequate flow by PPG waveforms. Left Impression 1. The common femoral, profunda femoral, superficial femoral, popliteal, posterior tibial and anterior tibial art eries are patent with normal triphasic Doppler waveforms. 2. The peroneal artery is not visualized . 3. The PT and DP SHYAM's are not obtained due to non-Dopplerable signals, swelling and inability to position the l egs. 4. The great toe pressure and TBI are no t obtained due to size of the great toe and swelling. 5. The digits have adequate flow by PPG waveforms. Conclusions Summary Arterial pressures and Doppler waveform s were performed bilaterally. The arterial exam was technically difficult due to edema, body habitus and inability to position the legs, however , adequate Doppler waveforms were obtained. The right and left arterial s ystems were patent with triphasic Doppler waveforms and no evidence of ob struction. The peroneal artery was not visualized, bilaterally. The right and left SHYAM's were not obtained due to non-Dopplerable signals, swellin g and inability to position the legs. The toe pressure and TBI's were n ot obtained due to size of the great toe and swelling, bilaterally. Th e digits had adequate flow by PPG waveforms bilaterally. Signature Velocities are measured in cm/s ; Diamet ers are measured in cm LE Duplex Measurements Right Left + + + + + + + + + + !Location ! !PSV !EDV !Waveform ! !PSV !EDV !Waveform ! + + + + + + + + + + !Mid Common Femoral ! !149 ! !Triphasic ! !176 ! !Triphasic ! + + + + + + + + + + !Prox PFA ! !69.2 ! !Triphasic ! !81.3 ! !Triphasic ! + + + + + + + + + + !Prox SFA ! !129 ! !Triphasic ! !130 ! !Triphasic ! + + + + + + + + + + !Mid SFA ! !125 ! !Triphasic ! !89.8 ! !Triphasic ! + + + + + + + + + + !Dist SFA ! !96.6 ! !Triphasic ! !83.7 ! !Triphasic ! + + + + + + + + + + !Prox Popliteal ! !106 ! !Triphasic ! !96.6 ! !Triphasic ! + + + + + + + + + + !Dist Popliteal ! !81.9 ! !Triphasic ! !127 ! !Triphasic ! + + + + + + + + + + !Prox APPRAISER LAND ! !93.5 ! !Triphasic ! !140 ! !Triphasic ! + + + + + + + + + + !Mid APPRAISER LAND ! !83.1 ! !Triphasic ! !64.4 ! !Triphasic ! + + + + + + + + + + !Dist APPRAISER LAND ! !130 ! !Triphasic ! !109 ! !Triphasic ! + + + + + + + + + + !Prox ROSAURA ! !125 ! !Triphasic ! !92.9 ! !Triphasic ! + + + + + + + + + + !Mid ROSAURA ! !144 ! !Triphasic ! !61.1 ! !Triphasic ! + + + + + + + + + + !Dist ROSAURA ! + + Performing Organization Address City/[facility] Phone Number [facility] ECHO HEARTLAB MKCKESSON CPACS Manual Differential (07/23/2019 4:07 AM SUPPORT REPRESENTATIVE) % Neutros (manual) 69 % [facility] % Lymphs (manual) 25 % [facility] % Monos (manual) 3 % [facility] % Eos (manual) 3 % [facility] % Baso (manual) 0 % [facility] # Neutros (manual) 4.62 1.80 - 8.00 K/L [facility] # Lymphs (manual) 1.68 1.48 - 4.50 K/L [facility] # Monos (manual) 0.20 0.00 - 1.30 K/L [facility] # Eos (manual) 0.20 0.00 - 0.50 K/L [facility] # Baso (manual) 0.00 0.00 - 0.20 K/L [facility] Total Counted 100 [facility] Platelet Morphology Normal [facility] RBC Morphology Normal [facility] Smudge Cells Present [facility] Specimen Blood Performing Organization Address City/[facility]/Zipcode Phone Number [facility] [address] [place] [address] CENTER US abdomen limited (07/22/2019 6:45 PM SUPPORT REPRESENTATIVE) Specimen Narrative Performed At FINAL REPORT [facility] Limited abdominal ultrasound. CLINICAL HISTORY: Evaluation of AROMATHERAPIST shunt for possible cyst or pseudocyst. COMPARISON STUDY: None available. FINDINGS: Sonographic assessment of the abdomen was performed assessing for fluid in the region of the patient's shunts. No fluid collections are seen. However, the study is limited by the patient's body habitus. CT scan would be more sensitive. Signed: Óscar Santoyo MD Report Verified Date/Time:07/22/2019 19:54:10 Reading Location: [facility] C013W Consult R eading Room Procedure Note Interface, External Ris In - 07/22/2019 7:57 PM SUPPORT REPRESENTATIVE FINAL REPORT Limited abdominal ultrasound. CLINICAL HISTORY: Evaluation of AROMATHERAPIST shunt for possible cyst or pseudocyst. COMPARISON STUDY: None available. FINDINGS: Sonographic assessment of the abdomen was performed assessing for fluid in the region of the patient's shunts. No fluid collections are seen. However, the study is limited by the patient's body habitus. CT scan would be more sensitive. Signed: Óscar Santoyo MD Report Verified Date/Time: 07/22/2019 1 9:54:10 Reading Location: [facility] C013W Consult R eading Room Performing Organization Address City/State/Zipcode Phone Number GE RIS Manual Differential (07/22/2019 4:50 PM SUPPORT REPRESENTATIVE) % Neutros 63 % [facility] % Lymphs 23 % [facility] % Monos 6 % [facility] % Eos 5 % [facility] % Baso 1 % [facility] % Bands 2 0 - 10 % [facility] # Neutros 4.91 1.78 - 5.38 K/ul [facility] # Lymphs 1.79 1.32 - 3.57 K/ul [facility] # Monos 0.47 0.30 - 0.82 K/uL [facility] # Eos 0.39 0.04 - 0.54 K/uL [facility] # Baso 0.08 0.01 - 0.08 K/uL [facility] # Bands 0.16 0.00 - 0.80 K/uL [facility] Total Counted [address] [facility] Smudge Cells Present [facility] Giant Platelet Present [facility] Anisocytosis 1+ few [facility] Poikilocytes 2+ moderate [facility] Spherocytes 1+ few [facility] Ovalocytes 1+ few [facility] Tear Drop Cells 1+ few [facility] Artifact Present [facility] Platelet Conc Adequate [facility] Specimen Blood Narrative Performed At Received comment: [facility] User comments: Slide comments: Performing Organization Address City/State/Zipcode Phone Number [facility] [address] [place] [address] CENTER Urinalysis w/Microscopic + Reflex to Culture (07/22/2019 4:40 PM SUPPORT REPRESENTATIVE) Color, UA Yellow [facility] Clarity, UA Hazy [facility] Specific [place], UA 1.020 1.001 - 1.035 [facility] pH, UA 6.0 5.0 - 8.[address] [facility] Protein, UA 20 mg/dL (A) Negative [facility] Glucose, UA >1000 mg/dL (A) Negative [facility] Ketones, UA 40 mg/dL (A) Negative [facility] Bilirubin, UA Negative Negative [facility] Blood, UA Moderate (A) Negative [facility] Nitrite, UA Positive (A) Negative [facility] Leukocytes, UA Large (A) Negative [facility] Urobilinogen, UA 0.2 0.2 - 1.0 mg/dL [facility] RBC, UA 0 /HPF [facility] WBC, UA 267 /HPF [facility] Bacteria, UA Moderate [facility] Specimen Source [facility] Specimen Urine - Urine, Suprapubic Aspirate Performing Organization Address City/State/Zipcode Phone Number [facility] [address] [place] [address] brain without IV contrast (07/22/2019 3:26 PM SUPPORT REPRESENTATIVE) Specimen Narrative Performed At FINAL REPORT Swapsee CT, BRAIN, WITHOUT CONTRAST CLINICAL INDICATION:Hydrocephalus COMPARISON: None TECHNIQUE:Noncontrast axial CT imagi ng of the brain and skull. DOSE REDUCTION: Dose modulation, iterati ve reconstruction, and/or weight-based adjustment of the mA/kV was utilized to reduce the radiation dose to as low as reasonably a chievable. FINDINGS: A total of two ventricular drainage cath eters are present. A right transverse temporal catheter terminates across the midline just above the level of the foramen of Monro. A rig ht parietal approach catheter terminates in the pineal region. Suprate ntorial ventricular configuration is slitlike. There is no h erniation. The basilar cisterns are preserved. There is no iden tifiable recent infarct. Congenital changes are evident in the oc cipital lobes. 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 Calvarial con figuration escape of cephalic. There is no acute osseous abno rmality. 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 A total of two ventricular drainage cath eters are present. Supratentorial ventricular configuration is slitlike and may represent over shunting. Correlation rec ommended. Signed: JR Cali Robert MD Report Verified Date/Time:07/22/2019 15:31:08 Reading Location: [facility] C013V [facility] Room Procedure Note Interface, External Ris In - 07/22/2019 3:33 PM SUPPORT REPRESENTATIVE FINAL REPORT CT, BRAIN, WITHOUT CONTRAST CLINICAL INDICATION: Hydrocephalus COMPARISON: None TECHNIQUE: Noncontrast axial CT imaging of the brain and skull. DOSE REDUCTION: Dose modulation, iterati ve reconstruction, and/or weight-based adjustment of the mA/kV was utilized to reduce the radiation dose to as low as reasonably a chievable. FINDINGS: A total of two ventricular drainage cath eters are present. A right transverse temporal catheter terminates across the midline just above the level of the foramen of Monro. A rig ht parietal approach catheter terminates in the pineal region. Suprate ntorial ventricular configuration is slitlike. There is no h erniation. The basilar cisterns are preserved. There is no iden tifiable recent infarct. Congenital changes are evident in the oc cipital lobes. 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 Calvarial con figuration escape of cephalic. There is no acute osseous abno rmality. 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 A total of two ventricular drainage cath eters are present. Supratentorial ventricular configuration is slitlike and may represent over shunting. Correlation rec ommended. Signed: JR Cali Robert MD Report Verified Date/Time: 07/22/2019 1 5:31:08 Reading Location: [facility] C013[facility] Room Performing Organization Address City/State/Zipcode Phone Number GE RIS XR shunt series (07/22/2019 2:49 PM SUPPORT REPRESENTATIVE) Specimen Narrative Performed At FINAL REPORT GE RIS RAD, SHUNT SERIES INDICATION: concern for VPS malfunction COMPARISON: None TECHNIQUE: AP and lateral radiographs of the skull, abdomen and chest were acquired to evaluate shunt catheter FINDINGS: An abandoned shunt catheter is present w ithin the right neck. Medial to this a second shunt catheter is prese nt which descends along the left chest wall, terminating within the mid pelvis. Radiopaque portions of the catheter appear contiguo us. Signed: Jacob Buchanan MD Report Verified Date/Time:07/22/2019 15:13:54 Reading Location: [facility] Reading Room Procedure Note Interface, External Ris In - 07/22/2019 3:16 PM SUPPORT REPRESENTATIVE FINAL REPORT RAD, SHUNT SERIES INDICATION: concern for VPS malfunction COMPARISON: None TECHNIQUE: AP and lateral radiographs of the skull, abdomen and chest were acquired to evaluate shunt catheter FINDINGS: An abandoned shunt catheter is present w ithin the right neck. Medial to this a second shunt catheter is prese nt which descends along the left chest wall, terminating within the mid pelvis. Radiopaque portions of the catheter appear contiguo us. Signed: Jacob Buchanan MD Report Verified Date/Time: 07/22/2019 1 5:13:54 Reading Location: [employer] [facility] Reading Room Performing Organization Address City/State/Zipcode Phone Number [facility] TSH/Free T4 If Indicated (07/22/2019 7:08 AM SUPPORT REPRESENTATIVE) TSH 1.40 0.35 - 4.94 uIU/mL [facility] Specimen Blood Performing Organization Address City/State/Zipcode Phone Number [facility] [address] [place] [address] CENTER Wound culture + gram stain (07/22/2019 12:27 AM SUPPORT REPRESENTATIVE) Result 1+ Proteus mirabilis (A) [facility] Result 1+ Methicillin resistant [facility] Staphylococcus aureus (A) [facility] Result <1+ Escherichia coli [facility] (A)Comment: ESBL Positive [facility] Result Beta-hemolytic streptococcus [facility] group B, by serological [facility] grouping (A) Gram Stain Result 3+ WBCs [facility] Gram Stain Result 1+ gram negative rods [facility] Gram Stain Result 2+ gram positive rods [facility] Gram Stain Result <1+ gram negative coccobacilli [facility] Gram Stain Result 2+ gram positive cocci in pairs [facility] Specimen Wound Organism Antibiotic Method Susceptibility Proteus mirabilis Amikacin <=2: Susceptib le Proteus mirabilis Ampicillin + Sulbactam 8: Susc eptible Proteus mirabilis Aztreonam <=1: Susceptib le Proteus mirabilis Cefepime <=1: Susceptib le Proteus mirabilis Cefoxitin 32: Resistant Proteus mirabilis Ceftazidime <=1: Susceptib le Proteus mirabilis Ceftriaxone <=1: Susceptib le Proteus mirabilis Ertapenem <=0.5: Suscept ible Proteus mirabilis Gentamicin <=1: Susceptib le Proteus mirabilis Levofloxacin >=8: Resistant Proteus mirabilis Meropenem <=0.25: Suscep tible Proteus mirabilis Piperacillin + Tazobactam <=4: Susceptible Proteus mirabilis Tetracycline >=16: Resistan t Proteus mirabilis Tobramycin <=1: Susceptib le Proteus mirabilis Trimethoprim + >=320: Resista nt Sulfamethoxazole Methicillin resistant Clindamycin >=4: Resis tant Staphylococcus aureus Methicillin resistant Erythromycin >=8: Resis tant Staphylococcus aureus Methicillin resistant Linezolid 2: Suscept ible Staphylococcus aureus Methicillin resistant Oxacillin >=4: Resis tant Staphylococcus aureus Methicillin resistant Rifampin <=0.5: Renetta ceptible Staphylococcus aureus Methicillin resistant Tetracycline <=1: Susce ptible Staphylococcus aureus Methicillin resistant Trimethoprim + <=10: Susc eptible Staphylococcus aureus Sulfamethoxazole Methicillin resistant Vancomycin 1: Suscept ible Staphylococcus aureus Escherichia coli Amikacin <=2: Susceptibl e Escherichia coli Ampicillin + Sulbactam >=32: Re sistant Escherichia coli Aztreonam Resistant Escherichia coli Cefepime Resistant Escherichia coli Cefoxitin >=64: Resistant Escherichia coli Ceftazidime Resistant Escherichia coli Ceftriaxone Resistant Escherichia coli Ertapenem <=0.5: Suscepti ble Escherichia coli Gentamicin <=1: Susceptibl e Escherichia coli Levofloxacin >=8: Resistant Escherichia coli Meropenem <=0.25: Suscept ible Escherichia coli Piperacillin + Tazobactam Resis tant Escherichia coli Tetracycline <=1: Susceptibl e Escherichia coli Tobramycin <=1: Susceptibl e Escherichia coli Trimethoprim + >=320: Resistan t Sulfamethoxazole Performing Organization Address [facility] Phone Number [facility] [address] [place] [address] CENTER Drug screen, urine, comprehensive (07/22/2019 12:27 AM SUPPORT REPRESENTATIVE) Specimen Urine - Urine, Suprapubic Aspirate Narrative Performed At This result has an attachment that is no t available. Urine culture (07/22/2019 12:27 AM SUPPORT REPRESENTATIVE) Result 80-89,000 col/mL Gram negative rods [facility] (A)Comment: Same as second isolate. [facility]ENTER Result 80-89,000 col/mL Proteus mirabilis [facility] (A)Comment: ESBL Positive [facility] Result >100,000 col/mL Beta-hemolytic C [facility] streptococcus group B, by [facility] serological grouping (A) Specimen Urine - Urine, Suprapubic Aspirate Organism Antibiotic Method Susceptibility Proteus mirabilis Amikacin 4: Susceptible Proteus mirabilis Ampicillin + Sulbactam Resista nt Proteus mirabilis Aztreonam 32: Resistant Proteus mirabilis Cefepime 32: Resistant Proteus mirabilis Cefoxitin Resistant Proteus mirabilis Ceftazidime Resistant Proteus mirabilis Ceftriaxone Resistant Proteus mirabilis Ertapenem <=0.5: Suscept ible Proteus mirabilis Gentamicin 8: Resistant Proteus mirabilis Levofloxacin >=8: Resistant Proteus mirabilis Meropenem 0.5: Susceptib le Proteus mirabilis Nitrofurantoin 256: Resistant Proteus mirabilis Tetracycline 8: Resistant Proteus mirabilis Tobramycin >=16: Resistan t Performing Organization Address [facility]/Zipcode Phone Number [facility] [address] [place] [address] CENTER XR foot 2 views right (07/21/2019 9:22 PM SUPPORT REPRESENTATIVE) Specimen Narrative Performed At FINAL REPORT [facility] TECHNIQUE: Two views each of the bilater al feet HISTORY: osteomyletitis. COMPARISON: None. IMPRESSION: No acute displaced fracture or dislocati on. Joint spaces are within normal limits. Severe soft tissue swelling. On the right subcentimeter nonspecific c alcifications adjacent to the heel plantar aspect. Correlate with phys ical exam. Severely limited exam due to patient bod y habitus. No definite cortical irregularity. There is clinical concern for osteomyeli tis, recommend MRI with contrast. Signed: Matias Salinas MD Report Verified Date/Time:07/21/2019 22:28:25 Reading Location: [address] Consult R eading Room Procedure Note Interface, External Ris In - 07/21/2019 10:30 PM SUPPORT REPRESENTATIVE FINAL REPORT TECHNIQUE: Two views each of the bilater al feet HISTORY: osteomyletitis. COMPARISON: None. IMPRESSION: No acute displaced fracture or dislocati on. Joint spaces are within normal limits. Severe soft tissue swelling. On the right subcentimeter nonspecific c alcifications adjacent to the heel plantar aspect. Correlate with phys ical exam. Severely limited exam due to patient bod y habitus. No definite cortical irregularity. There is clinical concern for osteomyeli tis, recommend MRI with contrast. Signed: Matias Salinas MD Report Verified Date/Time: 07/21/2019 2 2:28:25 Reading Location: [address] Consult R eading Room Performing Organization Address City/State/Zipcode Phone Number [facility] XR foot 2 views left (07/21/2019 9:22 PM SUPPORT REPRESENTATIVE) Specimen Narrative Performed At FINAL REPORT [facility] TECHNIQUE: Two views each of the bilater al feet HISTORY: osteomyletitis. COMPARISON: None. IMPRESSION: No acute displaced fracture or dislocati on. Joint spaces are within normal limits. Severe soft tissue swelling. On the right subcentimeter nonspecific c alcifications adjacent to the heel plantar aspect. Correlate with phys ical exam. Severely limited exam due to patient bod y habitus. No definite cortical irregularity. There is clinical concern for osteomyeli tis, recommend MRI with contrast. Signed: Matias Salinas MD Report Verified Date/Time:07/21/2019 22:28:25 Reading Location: [facility] B1 [id number] [facility] Procedure Note Interface, External Ris In - 07/21/2019 10:30 PM SUPPORT REPRESENTATIVE FINAL REPORT TECHNIQUE: Two views each of the bilater al feet HISTORY: osteomyletitis. COMPARISON: None. IMPRESSION: No acute displaced fracture or dislocati on. Joint spaces are within normal limits. Severe soft tissue swelling. On the right subcentimeter nonspecific c alcifications adjacent to the heel plantar aspect. Correlate with phys ical exam. Severely limited exam due to patient bod y habitus. No definite cortical irregularity. There is clinical concern for osteomyeli tis, recommend MRI with contrast. Signed: Matias Salinas MD Report Verified Date/Time: 07/21/2019 2 2:28:25 Reading Location: [facility] [id number] Consult [facility] Room Performing Organization Address City/State/Zipcode Phone Number RIS after 01/06/2019 Insurance Payer Benefit Plan / Subscriber ID Type Phone Address Group MEDICAID - MEDICAID [facility] STAR xxxxxxxxx Medicaid Contracted [employer]GD CARE PLAN Advance Directives For more information, please contact:[place] [address] [address] Vasquez[place], [place] [phone] Code Status Date Activated Date Inactivated Comments Full Code 07/21/2019 9:03 PM 07/30/2019 4:44 PM This code status was determined by: Patient Full Code 12/23/2016 1:36 AM 12/25/2016 8:43 PM This code status was determined by: Patient
--- OUTSIDE RECORDS SUMMARY | 2020-01-07 14:23 | XMS REPORT | Continuity of Care Document ---
:1985 Author Organization [employer] Care Team Providers Name Role Phone [employer] Unavailable Un available Problems Problem Status Onset Classification Date Comments Sourc e Date Reported Headache 05/22/20 12/09/[address] HEADACHE Active 05/22/[address] SHUNT MALFUNCTION Active 11/15/[address] ACUTE HEADACHE Active 11/15/[address] Acute pain Active Problem 03/06/2019 Mischer (finding) Neuro,[facility] Asthma (disorder) Resolved Problem 03/06/2019 M ischer Neuro,[facility] Bronchitis Resolved Problem 03/06/2019 Mischer (disorder) Neuro,[facility] Cerebral palsy Resolved Problem 03/06/2019 Misc her (disorder) Neuro,[facility] Headache Active Problem 03/06/2019 Mischer (finding) Neuro,[facility] Hydrocephalus Resolved Problem 03/06/2019 Misch er (disorder) Neuro,[facility] Osteomyelitis Resolved Problem 03/06/2019 Misch er (disorder) Neuro,[facility] Spina bifida, 12/09/2018 [facility] Nausea with 12/09/2018 Vinny mancilla vomiting, 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 Nicotine 12/09/2018 [facility] dependence, Medical cigarettes, Center uncomplicated Presence of 12/09/2018 Vinny s cerebrospinal Medica l fluid drainage Cente r device Allergy status to 12/09/2018 [facility] other antibiotic Med ical agents status Center Allergy status to 12/09/2018 [facility] other drugs, Medical medicaments and Cent er biological substances status Allergy status to 12/09/2018 [facility] narcotic agent Medic al status Center HEADACHE Active [facility] Medications Medication Details Route Status Patient Ordering Order Source Instructions Provider Date normal saline 1,000 mL, Rate: Inactive [facility] 0.9% IV 1,000 100 ml/hr, 2018 Medical mL Infuse over: 10 Center hr, Route: IV, Dosing Weight 131.818 kg, Total Volume: 1,000, Start date: 05/22/18 5:04:00 BEHAVIORAL HEALTH CASE MANAGER, Duration: 30 day, Stop date: 06/21/18 5:03:00 BEHAVIORAL HEALTH CASE MANAGER, 2.4, m2 Magnesium Notes: [facility]ASTE[facility] - Sink; E - 2018 Medical [facility] Trash Center Bin Isolyte S Notes: (Same Inactive [place] PH-7.4 (Bolus) as: Isolyte S 2017 Med ical IV PH 7.4) Center Phenergan 12.5 mg, 0.5 Inactive [place] mL, Route: 2018 Medical IVPB, Drug Center form: INJ, ONCE, Dosing Weight 131.818, kg, Priority: STAT, Start date: 05/22/18 4:35:00 BEHAVIORAL HEALTH CASE MANAGER, Stop date: 05/22/18 4:35:00 BEHAVIORAL HEALTH CASE MANAGER Docusate Sodium 100 mg = 1 cap, Active [place] 100 MG Oral PO, BID, 0 2018 Medical Capsule Refill(s) Center Zosyn 0 Refill(s) Active [place] 2018 Medical [place] celecoxib 200 200 mg = 1 cap, Active [place] mg oral capsule PO, BID, 0 2018 Medic al Refill(s) Center ascorbic acid 500 mg = 1 tab, Active [place] PO, BID, 0 2018 Medical Refill(s) Center acetaminophen 1,000 mg = 2 [place] mg oral tab, PO, 2018 Medical tablet Q6Hnow, 0 Center Refill(s) Oxycodone 5 mg = 1 tab, Active [place] Hydrochloride 5 PO, Q4H, PRN 2018 Med ical MG Oral Tablet Pain Score 4-6, C enter 0 Refill(s) zinc sulfate 220 mg = 1 cap, Active [place] 220 mg oral PO, Daily, 0 2018 Medical capsule Refill(s) Center multivitamin 1 tab, PO, Active [facility] Daily, 0 2018 Medical Refill(s) Center methocarbamol 1,000 mg = 2 [place] mg oral tab, PO, Q8H, 0 2018 Medi efrain tablet Refill(s) Center LORazepam 0.5 0.5 mg = 1 tab, Active [place] mg oral tablet PO, Q8H, PRN 2018 Medi efrain Anxiety, 0 Center Refill(s) Lidocaine 3 patch, TOP, Active [place] Hydrochloride Daily, Remove 2018 Medi efrain 0.05 MG/MG after 12 hours, Cente r Transdermal 0 Refill(s) Patch [Lidoderm] Robaxin Notes: (Same No Longer [place] as:Robaxin) Active 2018 Medical Center Oxycodone Notes: (Same [place] Longer [place] Hydrochloride 5 as: Roxicodone) Active 2018 Medical MG Oral Tablet Center Ativan Notes: (Same No Longer [place] as: Ativan) Active 2018 [facility] Trazodone Notes: (Same [place] Longer [place] Hydrochloride As: Desyrel) Active 2018 Medic al 50 MG Oral Center Tablet remove patch Notes: Remove No Longer [place] patch 12 hours Active 2018 Medical after Center application each day. Oxycodone Notes: (Same Inactive [place] Hydrochloride 5 as: Roxicodone) 2018 Medical MG Oral Tablet Center Celebrex Notes: NSAID. [place] Longer [place] Please check Active 2018 Medical indication. Not Center for seizure. (Same As: CeleBREX) Vancomycin 2001 mg: No Longer [place] infuse over 2.5 Active 2018 Medical hours Center Lidocaine Notes: Apply [place] Longer [place] Hydrochloride only once for Active 2018 Medi efrain 0.05 MG/MG up to 12 hours Center Transdermal in a 24-hour Patch period (12 [Lidoderm] hours on and 12 hours off). (Same as: Lidoderm) "Remove old patch before application of new patch" Phenergan Notes: Do not [place] give IV push. 2018 Medical (Same as: Center Phenergan) Dilaudid Notes: Same [place] Dilaudid 2018 [facility] Tramadol Notes: Not to [place] Longer [place] exceed Active 2018 Medical 400mg/day. Center (Same As: Ultram) gabapentin Notes: (Same No Longer [place] as as: Neurontin) Active 2018 Medical Center Acetaminophen Notes: Max [place] Longer [place] acetaminophen Active 2018 Medical 4000 mg/day (4 Center gm/day). (Same as: Tylenol Extra Strength) Robaxin Notes: (Same No Longer [place] as:Robaxin) Active 2018 Medical Center Oxycodone Notes: (Same [place] Hydrochloride 5 as: Roxicodone) Active 2018 Medical MG Oral Tablet Center Beneprotein 7 Notes: (Same No Longer [facility] gm pkt as: Active 2017 Medical Beneprotein) [place] Acetaminophen 1 tab, PO, TID, No Longer [facility] 325 MG / 0 Refill(s) Active 2017 Medical Oxycodone [place] Hydrochloride 10 MG Oral Tablet [Percocet 10/325] Dilaudid 0.5 mg, 0.25 Inactive [facility] mL, Route: IVP, 2017 Medical Drug form: INJ, Center ONCE, Start date: 11/15/17 11:01:00 CDT, Stop date: 11/15/17 11:01:00 CDT Phenergan Notes: (Same Inactive [facility] as: Phenergan) 2018 Medical [place] Dilaudid 2 mg, Route: Inactive [facility] IVP, ONCE, 2018 Medical Dosing Weight Center 127.027, kg, Priority: STAT, Start date: 11/15/17 10:43:00 CDT, Stop date: 11/15/17 10:43:00 CDT Docusate Notes: (Same No Longer [place] as: Colace) (Do Active 2017 Medical Not Crush) Center Zinc Sulfate Notes: (Zinc No Longer [place] sulfate Active 2017 Medical capsule) - 220 Center mg Zinc sulfate = 50 mg elemental zinc Same as Zinc Sulfate ascorbic acid Notes: (Same No Longer [place] as: Vitamin C) Active 2018 Medical Center multivitamin Notes: (Same No Longer [place] as:Thera) Active 2018 Medical WASTE: F/P - Center Black; E - Municipal Trash Bin Take with food. Naproxen Notes: (Same Inactive [place] as: Naprosyn) 2018 Medical Take with food. Center Zosyn Notes: (Same No Longer [place] as: Zosyn) Active 2018 Medical Dosing based on Center Piperacillin component MEDICATION WASTE Product Size: 3375 mg Product Wasted: ___ mg Vancomycin 2001 mg: No Longer [place] infuse over 2.5 Active 2018 Medical hours For Center adult patients only: Round to nearest 250 mg per Medical Staff approval MEDICATION WASTE Product Size: 1000 mg Product Wasted: ___ mg Enoxaparin Notes: (Same No Longer [place] as as: Lovenox) Active 2018 [facility] Sodium Chloride 1,000 mL, Rate: No Longer [place] 0.9% IV 1,000 125 ml/hr, Active 2018 Medical mL Infuse over: 8 Center hr, Route: IV, Dosing Weight 127.27 kg, Total Volume: 1,000, Start date: 11/15/17 1:46:00 CDT, Duration: 30 day, Stop date: 12/15/17 1:45:00 CDT, 2.44, m2 Saline Flush Notes: (Same No Longer [place] 0.9% as: BD Active 2018 Medical Posiflush) Center Acetaminophen Notes: Do not Inactive [facility] exceed 4 2018 Medical gm/day. (Same Center as: Tylenol) Acetaminophen Notes: (Same Inactive [place] 325 MG / as: [place] 2018 Medical Hydrocodone 325/5) Do not Cente r Bitartrate 5 MG exceed 4gm/day Oral Tablet of acetaminophen. Reglan Notes: (Same Inactive [place] as: Reglan) 2018 [facility] Benadryl Notes: (Same Inactive [facility] as: Benadryl) 2018 [facility] Magnesium Notes: WASTE: [place] Sulfate F/P - Sink; E - 2018 [facility] Trash [facility] Bin Sodium Chloride 1,000 mL, 1000 Inactive [place] 0.9% (Bolus) IV ml/hr, Infuse 2018 Wa dical Over: 1 hr, Center Route: IV, 1,000, Drug form: INJ, ONCE, Priority: STAT, Dosing Weight 127.273 kg, Start date: 11/14/17 23:26:00 CDT, Stop date: 11/14/17 23:26:00 CDT Zosyn 4.5 gm, Route: Inactive 11/15[facility] IVPB, ONCE, 2018 Medical Dosing Weight Center 127.273, kg, Priority: STAT, Start date: 11/14/17 23:10:00 CDT, Stop date: 11/14/17 23:10:00 CDT, ABX Indication: Bacteremia Vancomycin 2001 mg: Inactive [facility] infuse over 2.5 2018 Medical hours For Center adult patients only: Round to nearest 250 mg per Medical Staff approval MEDICATION WASTE Product Size: 1000 mg Product Wasted: ___ mg normal saline 1,000 mL, Rate: No Longer [place] 0.9% IV 1,000 75 ml/hr, Active 2017 Medical mL Infuse over: [place] 13.3 hr, Route: IV, Dosing Weight 127.273 kg, Total Volume: 1,000, Start date: 11/14/17 22:39:00 CDT, Duration: 30 day, Stop date: 12/14/17 22:38:00 CDT, 2.36, m2 Acetaminophen Notes: Max Inactive [place] as acetaminophen 2018 Medical 4000 mg/day (4 Center gm/day). (Same as: Tylenol Extra Strength) Rocephin Notes: (Same Inactive [facility] As: Rocephin). 2018 Medical MEDICATION Center WASTE Product Size: 1000 mg Product Wasted: _0__ mg Morphine 4 mg, Route: Inactive 11/15[facility] Radha IVP, ONCE, 2018 Medical Dosing Weight Center 127.273, kg, Priority: STAT, Start date: 11/14/17 19:05:00 CDT, Stop date: 11/14/17 19:05:00 CDT Benadryl Notes: (Same Inactive [place] as: Benadryl) 2018 Medical Center Benadryl Notes: (Same Inactive 11/14[facility] as: Benadryl) 2018 Medical Center Morphine 4 mg, 1 mL, Inactive [place] Route: IVP, 2018 Medical Drug form: Center SOLN, ONCE, Dosing Weight 127.273, kg, Priority: STAT, Start date: 11/14/17 17:56:00 CDT, Stop date: 11/14/17 17:56:00 CDT Allergies, Adverse Reactions, Alerts Substance Category Reaction Severity Reaction Status Date Comments S ource type Reported amoxicillin Assertion Drug Active Mi alex allergy Neuro morphine Assertion Drug Active Misch er allergy Neuro Toradol Assertion Drug Active Mische r allergy Neuro Minocin Assertion Drug Active Mische r allergy Neuro Zofran Assertion Drug Active Mische r allergy Neuro Levaquin Assertion Drug Active Misch er allergy Neuro Bactrim Assertion Drug Active Mische r allergy Neuro Immunizations No Data Provided for This Section Results Order Name Results Value Reference Date Interpretation Comments Gabi rce Range ERTAPENEM:S Culture: >100,000 CFU/mL Proteus mirabilis 05/22 [facility]:PT:ISOL Urine 10,000 - 50,000 CFU/mL Skin Kayla /2017 Medical ATE:ORDQN:M [place] IC ERTAPENEM:S Proteus Proteus 05/22 [facility]:PT:ISOL mirabilis mirabilis /2017 Medical ATE:ORDQN:M Center IC URINE AND UA Nitrite Negative Negative 05/22 [facility] STOOL (05/22/18 10:48 AM) Medic pr Center URINE AND UA Bili Negative Negative 05/22 [facility] STOOL *NA* /2017 Medical (05/22/18 10:48 AM) Cente r URINE AND UA Ketones Negative Negative 05/22 [facility] STOOL *NA* /2017 Medical (05/22/18 10:48 AM) Cente r URINE AND UA Blood Trace Negative 05/22 [facility] STOOL *ABN* /2017 Medical (05/22/18 10:48 AM) Cente r URINE AND UA 0.2 0.1 - 1.0 05/22 [facility] STOOL Urobilinogen /2017 Medical Center URINE AND UA Leuk Est Large Negative 05/22 [facility] STOOL *ABN* /2017 Medical (05/22/18 10:48 AM) Cente r URINE AND UA Protein Negative Negative 05/22 [facility] STOOL (05/22/18 10:48 AM) /2017 Medic al Center URINE AND UA Glucose Negative Negative 05/22 [facility] STOOL (05/22/18 10:48 AM) /2017 [facility] URINE AND UA pH 7.0 5.0 - 8.0 05/22 [facility] URINE AND UA Spec Grav 1.015 <=1.030 05/22 [facility] URINE AND UA Color Yellow Yellow 05/22 [facility] STOOL *NA* /2017 Medical (05/22/18 10:48 AM) Cente r URINE AND UA Turbidity Clear Clear 05/22 [facility] (05/22/18 10:48 AM) [facility] URINE AND UA Mucus Few /LPF None Seen 05/22 [facility] /LPF /2017 [facility] URINE AND UA Bacteria Few /HPF None Seen 05/22 [facility] /HPF [facility] URINE AND UA RBC 0-2 /HPF 0 - 2 05/22 [facility] URINE AND UA Sq Epi None Seen Few 05/22 [facility] (05/22/18 10:48 AM) [facility] URINE AND UA WBC 51-100 None Seen 05/22 [facility] /HPF /HPF /2017 [facility] BLOOD BANK Antibody Scrn Negative 05/22 [facility] as RESULTS (05/22/18 5:57 AM) [facility] BLOOD BANK ABO/Rh AB POS 05/22 [facility] RESULTS /2017 [facility] HEMATOLOGY PTT 33.4 22.9 - 05/22 [facility] 35.8 [facility] HEMATOLOGY PT 13.7 12.0 - 05/22 [facility] 14.7 [facility] HEMATOLOGY INR 1.05 0.85 - 05/22 [facility] 1.17 [facility] CHEM PANEL eGFR 133 05/22 Result [facility] Comment: The [facility] eGFR is Center calculated using the CKD-EPI formula. In most young, healthy individuals the eGFR will be >90 mL/min/1.73m2 . The eGFR declines with age. An eGFR of 60-89 may be normal in some populations, particularly the elderly, for whom the CKD-EPI formula has not been extensively validated. Use of the eGFR is not recommended in the following populations:< br/>
Rea viduals with unstable creatinine concentration s, including patients and those with serious co-morbid conditions.<b r/>
Patie nts with extremes in muscle mass or diet.

The data above are obtained from the National Kidney Disease Education Program (NKDEP) which additionally recommends that when the eGFR is used in patients with extremes of body mass index for purposes of drug dosing, the eGFR should be multiplied by the estimated BMI. CHEM PANEL Calcium Lvl 9.4 8.5 - 10.5 05/22 [facility] CHEM PANEL CO2 28 24 - 32 05/22 2017 [facility] CHEM PANEL BUN 14 7 - 22 05/22 [facility] CHEM PANEL Glucose Lvl 89 70 - 99 05/22 [facility] CHEM PANEL Chloride Lvl 104 95 - 109 05/22 a s [facility] CHEM PANEL Potassium Lvl 4.2 3.5 - 5.1 05/22 [place] [facility] CHEM PANEL Sodium Lvl 137 135 - 145 05/22 [facility] CHEM PANEL Creatinine 0.85 0.50 - 05/22 [place] Lvl 1.40 [facility] CHEM PANEL AGAP 9.2 10.0 - 05/22 20.0 [facility] HEMATOLOGY ACT (TEG) 136 86 - 118 05/22 [facility] HEMATOLOGY [place] 0.6 05/22 [facility] HEMATOLOGY R-time Rapid 0.9 0.4 - 0.7 05/22 [facility] HEMATOLOGY K-time Rapid 1.4 0.6 - 2.3 05/22 [facility] HEMATOLOGY Angle Rapid 71 64 - 80 05/22 2017 [facility] HEMATOLOGY G-value Rapid 12.7 5.0 - 11.6 05/22 [place] [facility] HEMATOLOGY Max Amplitude 72 52 - 71 05/22 [place] [facility] HEMATOLOGY Estimated % 0.1 0.0 - 7.5 05/22 [place] L[place] [facility] HEMATOLOGY Platelet 367 133 - 450 05/22 [facility] HEMATOLOGY MPV 7.8 7.4 - 10.4 05/22 2017 [facility] HEMATOLOGY MCH 27.4 27.0 - 05/22 [place] 31.0 [facility] HEMATOLOGY MCV 80.7 80.0 - 05/22 [place] 94.0 [facility] HEMATOLOGY MCHC 34.0 32.0 - 05/22 [place] 36.0 /2018 [facility] HEMATOLOGY RDW 18.9 11.5 - 11 [place] 14.5 [facility] HEMATOLOGY Hct 43.3 42.0 - 11 [place] 54.0 /2017 [facility] HEMATOLOGY WBC 9.3 3.7 - 10.4 05/22 [facility] HEMATOLOGY Hgb 14.7 14.0 - 05/22 [place] 18.0 [facility] HEMATOLOGY RBC 5.36 4.70 - 11 [place] 6.10 [facility] HEMATOLOGY Eosinophils # 0.2 0.0 - 0.5 05/22 [facility] HEMATOLOGY Basophils # 0.1 0.0 - 0.2 05/22 [facility] HEMATOLOGY Lymphocytes # 1.8 1.0 - 5.5 05/22 [facility] HEMATOLOGY Monocytes # 0.9 0.0 - 0.8 05/22 [facility] HEMATOLOGY Neutrophils # 6.3 1.5 - 8.1 05/22 [facility] HEMATOLOGY Eosinophils 2.0 0.0 - 4.0 05/22 [facility] HEMATOLOGY Segs 67.4 45.0 - 05/22 [place] 75.0 [facility] HEMATOLOGY Lymphocytes 19.9 20.0 - 05/22 [place] 40.0 [facility] HEMATOLOGY Basophils 1.0 0.0 - 1.0 05/22 [facility] HEMATOLOGY Monocytes 9.7 2.0 - 12.0 05/22 2017 [facility] CHEM PANEL B/C Ratio 17 6 - 25 11/19 2017 [facility] CHEM PANEL Globulin 4.3 2.7 - 4.2 11/19 [facility] CHEM PANEL A/G Ratio 0.7 0.7 - 1.6 11/19 [facility] CHEM PANEL AGAP 14.4 10.0 - 11/19 [place] 20.0 [facility] CHEM PANEL eGFR 113 11/19 [facility] Comment: The Medical eGFR is Center calculated using the CKD-EPI formula. In most young, healthy individuals the eGFR will be >90 mL/min/1.73m2 . The eGFR declines with age. An eGFR of 60-89 may be normal in some populations, particularly the elderly, for whom the CKD-EPI formula has not been extensively validated. Use of the eGFR is not recommended in the following populations:< br/>
Rea viduals with unstable creatinine concentration s, including patients and those with serious co-morbid conditions.<b r/>
Patie nts with extremes in muscle mass or diet.

The data above are obtained from the National Kidney Disease Education Program (NKDEP) which additionally recommends that when the eGFR is used in patients with extremes of body mass index for purposes of drug dosing, the eGFR should be multiplied by the estimated BMI. CHEM PANEL Alk Phos 76 39 - 136 05/ [address] CHEM PANEL ALT 35 0 - [address] CHEM PANEL Albumin Lvl 2.8 3.5 - 5.0 11/[address] CHEM PANEL Total Protein 7.1 6.4 - 8.4 11/[address] CHEM PANEL Calcium Lvl 8.7 8.5 - 10.5 11/[address] CHEM PANEL AST 18 0 - 37 05/ [address] CHEM PANEL Bili Total 0.3 0.2 - 1.3 11/[address] CHEM PANEL Potassium Lvl 4.4 3.5 - 5.1 11/[address] CHEM PANEL Chloride Lvl 109 95 - 109 05/ [address] CHEM PANEL CO2 23 24 - 32 / [address] CHEM PANEL Glucose Lvl 114 70 - 99 11/[address] CHEM PANEL Creatinine 1.01 0.50 - 05 [facility] Lvl 1.40 /2017 [facility] CHEM PANEL BUN 17 7 - 22 05/ [address] CHEM PANEL Sodium Lvl 142 135 - 145 05/ [address] HEMATOLOGY Basophils 0.6 0.0 - 1.0 / [address] HEMATOLOGY Segs-Bands # 4.8 1.5 - 8.1 11/[address] HEMATOLOGY Monocytes # 0.7 0.0 - 0.8 11/[address] HEMATOLOGY Lymphocytes # 1.9 1.0 - 5.5 05 [facility] HEMATOLOGY Monocytes 9.4 2.0 - 12.0 11/19 [facility] HEMATOLOGY Eosinophils # 0.2 0.0 - 0.5 11/19 [facility] HEMATOLOGY Eosinophils 2.9 0.0 - 4.0 11/[place] /[place] [facility] HEMATOLOGY Segs 62.2 45.0 - 11/19 [place] 75.0 [facility] HEMATOLOGY Lymphocytes 24.9 20.0 - 05 [place] 40.0 [facility] HEMATOLOGY MCH 27.5 27.0 - 05 [place] 31.0 [facility] HEMATOLOGY MCV 85.3 80.0 - 11/19 [place] 94.0 [facility] HEMATOLOGY Hct 43.9 42.0 - 11/19 [place] 54.0 [facility] HEMATOLOGY Hgb 14.2 14.0 - 11/19 [place] 18.0 [facility] HEMATOLOGY WBC 7.7 3.7 - 10.4 11/19 [facility] HEMATOLOGY RBC 5.15 4.70 - 11/19 [place] 6.10 [facility] HEMATOLOGY MPV 8.4 7.4 - 10.4 11/19 [facility] HEMATOLOGY MCHC 32.3 32.0 - 11/19 [place] 36.0 [facility] HEMATOLOGY RDW 17.3 11.5 - 11/19 [place] 14.5 [facility] HEMATOLOGY Platelet 317 133 - 450 11/19 2017 [facility] CHEM PANEL Globulin 4.4 2.7 - 4.2 11/18 [facility] CHEM PANEL A/G Ratio 0.6 0.7 - 1.6 11/18 [facility] CHEM PANEL B/C Ratio 17 6 - 25 11/18 2017 [facility] CHEM PANEL AGAP 11.3 10.0 - 11/18 [place] 20.0 [facility] CHEM PANEL eGFR 134 05 Result Comment: The Medical eGFR is Center calculated using the CKD-EPI formula. In most young, healthy individuals the eGFR will be >90 mL/min/1.73m2 . The eGFR declines with age. An eGFR of 60-89 may be normal in some populations, particularly the elderly, for whom the CKD-EPI formula has not been extensively validated. Use of the eGFR is not recommended in the following populations:< br/>
Rea viduals with unstable creatinine concentration s, including patients and those with serious co-morbid conditions.<b r/>
Patie nts with extremes in muscle mass or diet.

The data above are obtained from the National Kidney Disease Education Program (NKDEP) which additionally recommends that when the eGFR is used in patients with extremes of body mass index for purposes of drug dosing, the eGFR should be multiplied by the estimated BMI. CHEM PANEL Creatinine 0.84 0.50 - 11/18 [facility] Lvl 1.40 [facility] CHEM PANEL Sodium Lvl 142 135 - 145 11/[address] CHEM PANEL Glucose Lvl 99 70 - 99 11/[address] CHEM PANEL BUN 14 7 - 22 11/[address] CHEM PANEL Alk Phos 79 39 - 136 11/[address] CHEM PANEL Bili Total 0.3 0.2 - 1.3 11/[address] CHEM PANEL AST 14 0 - 37 11/[address] CHEM PANEL ALT 43 0 - 65 11/[address] CHEM PANEL Total Protein 7.1 6.4 - 8.4 11/[address] CHEM PANEL Albumin Lvl 2.7 3.5 - 5.0 11/18 [facility]2017 [facility] CHEM PANEL Calcium Lvl 9.2 8.5 - 10.5 11/18 [facility] CHEM PANEL CO2 21 24 - 32 11/[address] CHEM PANEL Potassium Lvl 4.3 3.5 - 5.1 11/[address] CHEM PANEL Chloride Lvl 114 95 - 109 11/18 [facility]2017 [facility] HEMATOLOGY MCHC 32.5 32.0 - 11/18 [facility] 36.0 [facility] HEMATOLOGY RDW 17.5 11.5 - 11/18 [facility] 14.5 [facility] HEMATOLOGY Platelet 400 133 - 450 11/[address] HEMATOLOGY MPV 8.5 7.4 - 10.4 11/[address] HEMATOLOGY WBC 6.6 3.7 - 10.4 11/18 [facility] HEMATOLOGY RBC 5.17 4.70 - 11/18 [place] 6.10 [facility] HEMATOLOGY MCV 86.1 80.0 - 11/18 [facility] [facility] 94[facility]0 [facility] HEMATOLOGY Hct 44.5 42.0 - 11/18 [place] 54.0 [facility] HEMATOLOGY MCH 28.0 27.0 - 11/18 [place] 31.0 [facility] HEMATOLOGY Hgb 14.5 14.0 - 11/18 [place] 18.0 [facility] HEMATOLOGY Lymphocytes # 1.7 1.0 - 5.5 11/18 [facility] HEMATOLOGY Monocytes # 0.7 0.0 - 0.8 11/18 [facility] HEMATOLOGY Eosinophils # 0.2 0.0 - 0.5 11/18 [facility] [address] [place] [address] HEMATOLOGY Lymphocytes 26.1 20.0 - 11/18 [place] 40.0 [facility] HEMATOLOGY Segs 59.3 45.0 - 11/18 [place] 75.0 [facility] HEMATOLOGY Basophils 0.8 0.0 - 1.0 11/18 [facility] HEMATOLOGY Monocytes 10.5 2.0 - 12.0 11/18 [facility] HEMATOLOGY Eosinophils 3.3 0.0 - 4.0 11/18 [facility] HEMATOLOGY Segs-Bands # 3.9 1.5 - 8.1 11/18 [facility] TOXICOLOGY Vanco Tr TND 15:30pm 11/[address] TOXICOLOGY Vanco Tr 9.1 11/17 [facility] CHEM PANEL Glucose Lvl 74 70 - 99 11/17 [facility] CHEM PANEL BUN 12 7 - 22 11/[address] CHEM PANEL Creatinine 0.75 0.50 - 05 [facility] Lvl 1.40 [facility] CHEM PANEL eGFR 140 05 [facility] Comment: The Medical eGFR is Center calculated using the CKD-EPI formula. In most young, healthy individuals the eGFR will be >90 mL/min/1.73m2 . The eGFR declines with age. An eGFR of 60-89 may be normal in some populations, particularly the elderly, for whom the CKD-EPI formula has not been extensively validated. Use of the eGFR is not recommended in the following populations:< br/>
Rea viduals with unstable creatinine concentration s, including patients and those with serious co-morbid conditions.<b r/>
Patie nts with extremes in muscle mass or diet.

The data above are obtained from the National Kidney Disease Education Program (NKDEP) which additionally recommends that when the eGFR is used in patients with extremes of body mass index for purposes of drug dosing, the eGFR should be multiplied by the estimated BMI. CHEM PANEL Albumin Lvl 2.9 3.5 - 5.0 05/ [facility]2017 [facility] CHEM PANEL Globulin 4.4 2.7 - 4.2 11/[address] CHEM PANEL A/G Ratio 0.7 0.7 - 1.6 11/[address] CHEM PANEL Bili Total 0.4 0.2 - 1.3 11/[address] CHEM PANEL Alk Phos 71 39 - 136 05/ [address] CHEM PANEL AST 15 0 - 37 05/ [address] CHEM PANEL ALT 28 0 - 65 05/ [address] CHEM PANEL Potassium Lvl 4.4 3.5 - 5.1 11/[address] CHEM PANEL Sodium Lvl 147 135 - 145 05/ [address] CHEM PANEL CO2 25 24 - [address] CHEM PANEL Chloride Lvl 114 95 - 109 11/[address] CHEM PANEL B/C Ratio 16 6 - 25 / [address] CHEM PANEL Calcium Lvl 8.7 8.5 - 10.5 11/[address] CHEM PANEL AGAP 12.4 10.0 - 05/ [facility] 20.0 [facility] CHEM PANEL Total Protein 7.3 6.4 - 8.4 11/[address] HEMATOLOGY Platelet 345 133 - 450 05/ [address] HEMATOLOGY MPV 8.7 7.4 - 10.4 11/[address] HEMATOLOGY WBC 6.9 3.7 - 10.4 11/17 [facility] HEMATOLOGY RBC 5.30 4.70 - 05 [place] 6.10 [facility] [place] HEMATOLOGY MCHC 32.8 32.0 - 05 [place] 36.0 [facility] HEMATOLOGY MCH 27.9 27.0 - 11/17 31.0 [facility] HEMATOLOGY Hgb 14.8 14.0 - 11/17 [place] 18.0 [facility] HEMATOLOGY MCV 85.0 80.0 - 05 [place] 94.0 [facility] HEMATOLOGY Hct 45.1 42.0 - 11/17 54.0 [facility] HEMATOLOGY RDW 17.5 11.5 - 05 14.5 [facility] HEMATOLOGY Eosinophils # 0.2 0.0 - 0.5 05 [facility] HEMATOLOGY Lymphocytes # 2.0 1.0 - 5.5 11/17 [facility] HEMATOLOGY Monocytes # 0.7 0.0 - 0.8 11/17 [facility] HEMATOLOGY Eosinophils 2.4 0.0 - 4.0 05 [facility] HEMATOLOGY Basophils 0.6 0.0 - 1.0 05 [facility] HEMATOLOGY Segs-Bands # 4.0 1.5 - 8.1 11/17 [facility] HEMATOLOGY Monocytes 10.4 2.0 - 12.0 11/17 [facility] HEMATOLOGY RBC Morph Normal 11/17 [facility] (11/17/17 2:07 AM) [facility] HEMATOLOGY Segs 58.1 45.0 - 11/17 [place] 75.0 [facility] HEMATOLOGY Plt Morph Normal 11/17 [facility] (11/17/17 2:07 AM) [facility] HEMATOLOGY Lymphocytes 28.5 20.0 - 11/17 [place] 40.0 [facility] HEMATOLOGY Basophils # 0.1 0.0 - 0.2 11/16 [facility] HEMATOLOGY Polychrom Moderate None Seen 11/16 [facility] *ABN* /2017 [facility] (11/16/17 11:07 AM) [place] TOXICOLOGY Vanco Tr TND * 05 [facility] TOXICOLOGY Vanco Tr 22.3 05 [facility] CHEM PANEL Magnesium Lvl 2.3 1.8 - 2.4 11/15 [place]2017 [facility] CHEM PANEL Phosphorus 3.5 2.5 - 4.5 11/15 [facility] HEMATOLOGY PT 14.0 12.0 - 11/15 [place] 14.7 [facility] HEMATOLOGY PTT 37.6 22.9 - 11/15 [place] 35.8 [facility] HEMATOLOGY INR 1.08 0.85 - 11/15 [place] 1.17 [facility] IMMUNOLOGY C-REACTIVE 13.1 <=2.9 mg/L 11/[place] [facility] IMMUNOLOGY Prealbumin 25.2 18.0 - 11/15 [place] 45.0 [facility] CHEM PANEL Lactic Acid 0.9 0.5 - 2.2 11/15 [place] /2017 [facility] HEMATOLOGY Sed Rate 5 0 - 15 11/15 [facility] IMMUNOLOGY C-REACTIVE 15.8 <=2.9 mg/L 11/[place] PR[place] [facility] HEMATOLOGY PT 13.0 12.0 - 11/15 [place] 14.7 [facility] HEMATOLOGY INR 0.98 0.85 - 11/15 [place] 1.17 [facility] HEMATOLOGY PTT 33.2 22.9 - 11/15 [place] 35.8 [facility] BLOOD BANK Antibody Scrn Negative 11/14 [facility] as RESULTS (11/14/17 6:51 PM) /2017 [facility] BLOOD BANK ABO/Rh AB POS 11/14 [facility] RESULTS /2017 [facility] URINE AND UA 0.2 0.1 - 1.0 11/14 [facility] STOOL Urobilinogen /2017 [facility] URINE AND UA Nitrite Negative Negative 11/14 [facility] STOOL (11/14/17 6:35 PM) /2017 [facility] URINE AND UA Glucose Negative Negative 11/14 [facility] STOOL (11/14/17 6:35 PM) /2017 [facility] URINE AND UA Ketones Negative Negative 11/14 [facility] STOOL *NA* /2017 [facility] (11/14/17 6:35 PM) [place] URINE AND UA Bili Negative Negative 11/14 [facility] STOOL *NA* /2017 [facility] (11/14/17 6:35 PM) Center URINE AND UA Blood Trace Negative 11/14 [facility] STOOL *ABN* /2017 [facility] (11/14/17 6:35 PM) [place] URINE AND UA Leuk Est Small Negative 11/14 [facility] *ABN* /2017 [facility] (11/14/17 6:35 PM) [place] URINE AND UA Spec Grav 1.020 <=1.030 11/14 [facility] [address] [place] [address] URINE AND UA pH 6.0 5.0 - 8.0 11/[address] URINE AND UA Color Yellow Yellow 11/14 [facility] *NA* /2017 [facility] (11/14/17 6:35 PM) [place] URINE AND UA Protein Trace Negative 11/14 [facility] *ABN* [facility] (11/14/17 6:35 PM) [place] URINE AND UA Turbidity Slight Cloudy Clear 11/14 [facility] (11/14/17 6:35 PM) /2017 [facility] URINE AND UA Hyal Cast 0-2 0 - 2 11/14 [facility] (11/14/17 6:35 PM) [address] [place] [address] URINE AND UA Bacteria Occasional None [place]en 11[place] ST[place]OL /HPF /HPF [facility] URINE AND UA RBC 11-20 /HPF 0 - 2 11/[address] URINE AND UA Sq Epi Occasional Few /LPF 11/14 [facility] STOOL /LPF /2017 [facility] URINE AND UA WBC 51-100 None Seen 11/14 [facility] STOOL /HPF /HPF /[address] [place] [address] HEMATOLOGY Basophils # 0.1 0.0 - 0.2 11/14 [place] [facility] HEMATOLOGY Polychrom Slight 11/[address] HEMATOLOGY Plt Morph Normal 11/14 [facility] (11/14/17 6:20 PM) [address] Pathology Reports No Data Provided for This Section Diagnostic Reports Report Value Date Source Brain-Outside Consult EXAM: CT BRAIN WITHOUT CONTRAST -- OUT SIDE CONSULT 05/22/2018 [facility] CT DATE: 05/22/2018 4:49 AM 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 205 images. Imaging was performed at [facility] on 05/22/2018. IV contrast: None. FINDINGS: Overall unchanged exam. Righ t transfrontal ventriculostomy catheter is unchanged in position. The ventricles remain dysmorphic and are unchanged in size and configuration. The abandoned right transparie darian catheter is unchanged. Stigmata of Chiari II malformation. There is no intracranial hemorrhage or extra-axi al collection. No new parenchymal density a bnormality. No mass or mass effect. Unchanged from the tonsillar herniation. The density of the larger intracranial sinuses i s normal. IMPRESSION: Unchanged examination compared to The final report agrees with the prelimi nary report by the radiology administrator. Brain shunt series DX EXAM: SKULL 2 VIEWS 11/14/2017 [facility] EXAM: CHEST 2 VIEWS Center EXAM: ABDOMEN 2 VIEWS DATE: 11/14/2017 7:20 PM CDT INDICATION: Headache. - Please include Efrem jeffrey ew for shunt setting. COMPARISON: Brain shuntogram 02/22/2013 TECHNIQUE: AP and lateral views of the skull, ch est and abdomen. FINDINGS: There is a single intact summer nt tube with the proximal aspect in the right frontal calvarium coursing across midline to the left anterior chest and abdomen with the tip coiled within the pelvis. A right parietal shunt with distal tip in the right lateral abdomen is discontinuous. Another shunt present with proximal tip in the right neck base and distal tip in the medial mid abdomen Cholecystectomy clips are no lester. The lungs are clear but underinflated. Appearance of the pelvis is unchanged with bilateral shallow acetabular roofs. No obvious posterior dislocation. 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 IMPRESSION: 1. No significant change. Th e right transfrontal shunt catheter is intact along its course with the distal tip in the pelvis. 2. Discontinuous right parie to-occipital catheter and 2 discontinuous catheters in the right chest and abdomen are unchanged. 3. Spinal dysraphism. 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 TECHNIQUE: Axial CT images o f the brain were obtained. Sagittal and coronal reformats. IV contrast: None. FINDINGS: An orphaned right occipital approach CADDY PACKER shunt is present. Also present is a right frontal approach CADDY PACKER shunt with tip in the left lateral ventricle. Narrowing of the lateral ventricles is present, unchanged from 07/30/2014. There is mild uncal and cerebellar tonsillar her niation, also unchanged. No recent hemorrhage or territorial infarct. No mass. No midline shift. No scalp fluid collections. Sinuses are clear. IMPRESSION: No acute intracranial abnormality. Adequately decompressed ventricular system. Chest 1view DX EXAM: XR CHEST 1 VIEW 11/14/2017 [facility] DATE: 11/14/2017 6:12 PM CDT Cente r INDICATION: - picc line use [place] SECTION: ER COMPARISON: None. TECHNIQUE: AP chest FINDINGS: Lines, tubes and hardware: Left PICC tip at mid SVC. Lungs and pleura: No pulmona ry or pleural based abnormality is identified. Pulmonary vascularity is normal. Heart and mediastinum: The h eart size is normal for technique. The mediastinal contours are normal. Bones: No acute bony abnormality is identified. Upper abdomen: Normal. IMPRESSION: Left PICC tip at mid SVC. No acute cardiopulmonary abnormality is observed . Consultation Notes No Data Provided for This Section Discharge Summaries No Data Provided for This Section History and Physicals No Data Provided for This Section Vital Signs Vital Sign Value Date Comments Source Respitory Rate 16 05/22/2018 [facility] Systolic (mm Hg) 138 05/22/2018 [facility] Diastolic (mm Hg) 68 05/22/2018 [facility] Temperature Oral (F) 98.4 F 05/22/2018 [facility] Temperature Oral (F) 98.6 F 05/22/2018 [facility] Systolic (mm Hg) 134 05/22/2018 [facility] Diastolic (mm Hg) 67 05/22/2018 [facility] Respitory Rate 18 05/22/2018 [facility] Systolic (mm Hg) 131 05/22/2018 [facility] Diastolic (mm Hg) 62 05/22/2018 [facility] Respitory Rate 16 05/22/2018 [facility] BMI Calculated 58.7 05/22/2018 [facility] Height 149.86 cm 05/22/2018 [facility] Weight 131.818 05/22/2018 [facility] Heart Rate 74 05/22/2018 [facility] [place] [facility] Temperature Oral (F) 97.9 F 05/22/2018 [facility] Temperature Oral (F) 97.2 F 11/19/2017 [facility] Center Systolic (mm Hg) 127 11/19/2017 [facility] [place] [facility] dical Center Diastolic (mm Hg) 85 11/19/2017 [facility] Heart Rate 81 11/19/2017 [facility] Respitory Rate 18 11/19/2017 [facility] Heart Rate 90 11/19/2017 [facility] Systolic (mm Hg) 106 11/19/2017 [facility] dical Center Diastolic (mm Hg) 71 11/19/2017 [facility] Center Respitory Rate 18 11/19/2017 [facility] Temperature Oral (F) 98.1 F 11/19/2017 [facility] Respitory Rate 18 11/19/2017 [facility] Systolic (mm Hg) 168 11/19/2017 [facility] dical Center Diastolic (mm Hg) 107 11/19/2017 [facility] Heart Rate 87 11/19/2017 [facility] Temperature Oral (F) 98.1 F 11/19/2017 [facility] Weight 127.027 11/18/2017 [facility] Weight 127.027 11/17/2017 [facility] Weight 127.027 11/15/2017 [facility] BMI Calculated 48.16 11/15/2017 [facility] Height 162.56 cm 11/15/2017 [facility] Height 149.86 cm 11/14/2017 [facility] BMI Calculated 56.67 11/14/2017 [facility] Encounters Location Location Encounter Encounter Reason Attending ADM DC Stat us Source Details Type Number For Provider Date Date Visit [facility] [id number] [place] 11/14 11/19 [facility] Jason Warner [facility] [id number] [place] 05/22 05/22 [facility] Kevin /2017 [facility] MNA Phone [id number] 01/01 01/03 Misc her Neurosurgery Message /2018 [facility] MNA Phone [id number] 01/26 01/28 Misc her Neurosurgery Message /2018 [facility] MNA Phone [id number] 02/10 02/12 [facility] Message /2018 Josefa gonzalez [facility]NA Phone [id number] 03/02 03/04 [facility] Message /2018 [facility] Procedures Procedure Code Date Perfomer Comments Source Cholecystectomy [id number] [facility] Shunt of cerebral [id number] [facility] ventricle to Neuro, extracranial site [facility] Assessment and Plan Assessment and Plan Date Source Extracted from:Title: Ophthalmology Consultation 05/22/2018 [facility] Author: Rajni Menjivar MD Date: 05/22/18 CONSULTATION - OPHTHALMOLOGY PATIENT NAME: Karen ARCE MR #: [id number] ROOM:ED REQUESTING TEAM/ATTENDING: KIRT DATE OF CONSULT: 05/22/2018 CONSULTING ATTENDING: Lucia Bob MD CONSULTING RESIDENT: Rajni Menjivar MD REASON FOR CONSULT: Evaluate for disc edema CHART REVIEWED: YES HISTORY OF PRESENT ILLNESS: The patient is a patient with PMH of spina bifida with CADDY PACKER shunt with several week history of severe headaches. Ophthalmology consultated to rule out disc edema. REVIEW OF SYSTEMS: CONSTITUTIONAL: Denies fever, weight changes. MUSCULOSKELETAL: Denies generalized pain SKIN: Denies rash. EYES: As above. ENT: Denies rhinorrhea, sore throat or hearing loss RESPIRATORY: Denies SOB. CARDIOVASCULAR: Denies chest pain. GASTROINTESTINAL: Denies nausea, vomiting, diarrhea. HEMATOPOETIC/LYMPHATIC: Denies bruising, LAD. GENITOURINARY: Denies change in UOP. NEUROLOGICAL: Denies headache. PSYCHIATRIC: Denies behavioral change. ALLERGY/IMMUNE SYSTEM: Denies allergies. PAST OCULAR HISTORY: per HPI PAST MEDICAL HISTORY: per HPI PAST SURGICAL HISTORY: no past ocular surgeries SOCIAL HISTORY: no etoh/smoking/drugs FAMILY HISTORY: no ocular history ALLERGIES: nkda MEDICATIONS: none EYE MEDICATION: none EXAMINATION NEURO/MS The patient is Alert but drowsy, no foca l neurological or motor deficits, the patient was able to participate fully in the exam VISUAL ACUITY (WITHOUT CORRECTION), TESTED ON A NEAR CARD Right: 20/40 ( poor effort 2/2 severe headaches and drowsine ss) Left: 20/40 ( poor effort 2/2 severe headaches and drowsine ss) EXTRAOCULAR MOTILITY Right: Full Left: Full CONFRONTATION VISUAL FIELD Right: Full Left: Full COLOR SATURATION Patient had no decrease in red color intensity between eyes Right: Ishihara Left: 1414 Ish[place]ara PUPILS Right: 4mm to 2mm, No afferent pupillary defect noted Left: 4mm to 2mm, No afferent pupillary defect noted INTRAOCULAR PRESSURE Symmetric and normal to palpation both e yes. Right eye 23, left eye 26 using the Tonopen.( patient squeezing) EXTERNAL Right: Within normal limits Left: Within normal limits ANTERIOR SEGMENT EXAM: LIDS/LASHES/LACRIMALS Right: Within normal limits Left: Within normal limits CONJUNCTIVA/SCLERA Right: White and quiet Left: White and quiet CORNEA Right: Clear without epi defect Left: Clear without epi defect ANTERIOR CHAMBER Right: Formed and grossly clear, no hyphema Left: Formed and grossly clear, no hyphema IRIS Right: Round and reactive Left: Round and reactive. LENS Right: Clear Left: Clear DILATED FUNDUS EXAM: (Both eyes dilated with phenylephrine 2.5% and tropicamide 1% @ 8:30AM) OPTIC NERVE: Right: Dunean, healthy nerve Left: Dunean, healthy nerve C:D RATIO Right: 0.2 Left: 0.2 POSTERIOR SEGMENT Right: Macula, vessels, periphery within normal limits Left: Macula, vessels, periphery within normal limits DIAGNOSES/RECOMMENDATION: 1. Spina bifida - No evidence of disc edema - Management as per neuro-surgery The patient has been given information t o call for an appointment to follow-up with Lucia Bob MD at the [facility] in in 3-4months. (Located: [address] [place] [address]; Appt #: [phone]). Please re-consult if any changes develop. Thank you for the consult. Rajni Menjivar MD Ophthalmology, PGY-2 Faculty note: Patient exam reviewed with the resident. I agree with above assessment and plan. Any additional findings or changes are detailed below. examined for headaches. no evidence of papilledema Extracted from:Title: Progress Note 11/19/2017 [facility] Author: Ruth Quesada MD Date: 11/18/17 1.Acute headache,Acute headache possibly related to CADDY PACKER infection, diffe rential includes ELISE, neuropathy, and narcotic withdrawal -Discussed with neurosurgery today do n ot believe that there is any role for intervention, no evidence of infection, shunt is appropriate, no evidence of optic disc changes Discussed this with the patient 2.CADDY PACKER (ventriculoperitoneal) shunt status Appears to be functioning well and decompressing the ventri cles 3.Acute UTI Will discontinue vancomycin continue Zo syn for the patient's prior osteomyelitis Urine cultures are negative 4.Decubitus ulcer present on admission, evaluated by wound care, RN following recs daily -Was [facility] forosteomyelitislast days tomorrow. 5.Acute pain MMP regimen implemented by les LAZO sed recommendations with team today, will add NSAID and trazodone for sleep Lovenox Extracted from:Title: APMS Consult Note Author: Donna Hernandez MD Date: 11/15/17 Patient: KAREN NGUYEN JR Age: 32 years Sex: Male : 1985 Associated Diagnoses: None Author: Donna Hernandez MD Basic Information Referral source Reason for consultation: Complex Acute Pain Chief Complaint 11/14/2017 17:41 transfer from [facility] for CADDY PACKER shunt malfunction/enlarged ventricles c/o ELISE/intermittent blurred vision x2 days moving extremeties bilaterally equally not amb per baseline no d istress noted pmh cp lymphedema spina bifida multiple pressu re ulcers History of Present Illness The patient presents with Location: _ Quality: _ Severity: _ Timing: _ Duration: _ Context: _ Modifying factors: _ , worsening headache c/b nausea, vomiti ng in setting of prior CADDY PACKER shunt. Per primary team no planned neurosurgical intervention at this time. consulted for help in managing patient's headache . Histories Past Medical History: Resolved Asthma ([id number]): Resolved. Bronchitis ([id number]): Resolved. Cerebral palsy ([id number]): Resolved. Hydrocephalus (965602795): Resolved. Osteomyelitis ([id number]): Resolved. Family History: No family history items have been selected or recorded. Procedure history: Cholecystectomy (SNOMED CT 75986680). Shunt of cerebral ventricle to extracranial site (SNOMED CT 613241510). Social History Social and Psychosocial Habits Tobacco 11/14/2017 Use: Current every day smoker Exposure to Tobacco Smoke Lives with someone who sm Cigarette Smoking Last 365 Days Yes Reg Smoking Cessation Counseling Yes . Health Status Allergies: Allergic Reactions (All) Severity Not Documented Amoxicillin- No reactions were documented. Bactrim- No reactions were documented. Levaquin- No reactions were documented. Minocin- No reactions were documented. Morphine- No reactions were documented. Toradol- No reactions were documented. Zofran- No reactions were documented. Canceled/Inactive Reactions (All) Severity Not Documented Vancomycin- No reactions were documented., Allergies (7) Active Reaction amoxicillin None Documented Bactrim None Documented Levaquin None Documented Minocin None Documented morphine None Documented Toradol None Documented Zofran None Documented Current medications: (Selected) Inpatient Medications Ordered Beneprotein 7 gm pkt: 2 pkt, PO, BID-Before Meals Lidoderm 5% topical film (patch): 3 patch, TOP, Daily Robaxin: 500 mg, 1 tab, PO, TID Saline Flush 0.9%: 10 ml, IVP, PRN, PRN: Line Flush Sodium Chloride 0.9% IV 1,000 mL: 125 ml/hr, IV, Stop: 12/15 1:45:00 CDT Zosyn: 3.375 gm, IVPB, ABXQ6H acetaminophen: 1,000 mg, 2 tab, PO, Q6Hnow ascorbic acid: 500 mg, 1 tab, PO, BID docusate: 100 mg, 1 cap, PO, BID enoxaparin: 40 mg, 0.4 mL, SUB-Q, [id number] gabapentin: 300 mg, 1 cap, PO, Q8Hnow multivitamin: 1 tab, PO, Daily normal saline 0.9% IV 1,000 mL: 75 ml/hr, IV, Stop: 12/14/17 22:38:00 CDT oxyCODONE 5 mg immediate release: 10 mg, 2 tab, PO, Q4H, PRN : Pain Score 7-10 oxyCODONE 5 mg immediate release: 5 mg, 1 tab, PO, Q4H, PRN: Pain Score 4-6 remove patch: 3 patch, TOP, Bedtime tramadol: 100 mg, 2 tab, PO, Q6Hnow vancomycin: 1,000 mg, IVPB, ABXQ8H zinc sulfate: 220 mg, 1 cap, PO, Daily Documented Medications Documented Percocet 10/325 oral tablet: 1 tab, PO, TID, 0 Refill(s), Medications (19) Active Scheduled: (14) acetaminophen 500 mg TAB 1,000 mg 2 tab, PO, Q6Hnow ascorbic acid 500 mg TAB 500 mg 1 tab, PO, BID docusate sodium 100 mg CAP 100 mg 1 cap, PO, BID enoxaparin 40 mg/0.4 ml INJ 40 mg 0.4 mL, SUB-Q, [id number] gabapentin 300 mg CAP 300 mg 1 cap, PO, Q8Hnow lidocaine 5% top patch 3 patch, TOP, Daily lidocaine patch removal 3 patch, TOP, Bedtime methocarbamol 500 mg TAB 500 mg 1 tab, PO, TID multiple vit Therapeutic TAB 1 tab, PO, Daily piperacillin-tazobactam 3.375 gm INJ VL 3.375 gm, IVPB, ABX Q6H traMADol 50 mg TAB 100 mg 2 tab, PO, Q6Hnow vancomycin 1 gm INJ VL 1,000 mg, IVPB, ABXQ8H whey protein isolate - soy lecithin (Liam eprotein) 7 gm pkt 2 pkt, PO, BID- Before Meals zinc sulfate 220 mg (zinc elemental 50mg) CAP 220 mg 1 cap, PO, Daily Continuous: (2) sodium chloride 0.9% 1000 ml INJ 1,000 mL 1,000 mL, IV, 75 ml/hr sodium chloride 0.9% 1000 ml INJ 1,000 mL 1,000 mL, IV, 125 ml/hr PRN: (3) oxyCODONE IR 5 mg TAB 5 mg 1 tab, PO, Q4H oxyCODONE IR 5 mg TAB 10 mg 2 tab, PO, Q4H sodium chloride 0.9% 10 ml flush syr BD 10 ml, IVP, PRN Problem list: All Problems Acute pain / SNOMED CT 155564566 / Confirmed Headache / SNOMED CT 19301641 / Confirmed Review of Systems Constitutional Cardiovascular Ear/Nose/Mouth/Throat Respiratory: Negative. Gastrointestinal: Nausea. Musculoskeletal Neurologic: headache, CADDY PACKER shunt in place. +nausea. Psychiatric Endocrine Hematology/Lymphatics Physical Examination VS/Measurements Measurements from flowsheet : Measurements 11/15/2017 10:20 Heparin Dosing Weight (kg) 86.33 11/15/2017 09:00 Weight 127.027 kg Dosing Weight Difference Percent -0.191 % Dosing Weight Collection Method Estimated 11/15/2017 00:44 Heparin Dosing Weight (kg) 86.43 11/15/2017 00:43 Height 162.56 cm Height Collection Method Estimated Weight 127.27 kg Dosing Weight Difference Percent -0.002 % Dosing Weight Collection Method Estimated Body Surface Area 2.3973 m2 Body Mass Index 48.16 m2 11/14/2017 17:47 Heparin Dosing Weight (kg) 79.53 11/14/2017 17:41 Height 149.86 cm Height Collection Method Stated Weight 127.273 kg Dosing Weight Difference Percent -2.439 % Dosing Weight Collection Method Measured Body Surface Area 2.3018 m2 Body Mass Index 56.67 m2 , Vital Signs (last 24 hrs) Last Charted _ Temp Oral 98.9 DegF (NOVEMBER 15 19:52) Heart Rate Peripheral H 107bpm (NOVEMBER 15 19:52) Resp Rate 17 BRMIN (NOVEMBER 15 19:52) SBP 134 mmHg (NOVEMBER 15 19:52) DBP 81 mmHg (NOVEMBER 15 19:52) SpO2 94 % (NOVEMBER 15 19:52) Weight 127.02 kg (NOVEMBER 15 09:00) Height 162.56 cm (NOVEMBER 15 00:43) BMI 48.16 (NOVEMBER 15 00:43) HENT: CADDY PACKER shunt in situ, headache. Review / Management Results review: Labs (Last four charted values) WBC 7.4 (NOVEMBER 15) H 11.2 (NOVEMBER 14 ) Hgb 15.8 (NOVEMBER 15) 16.4 (NOVEMBER 14) Hct 48.9 (NOVEMBER 15) 49.8 (NOVEMBER 14) Plt 397 (NOVEMBER 15) 408 (NOVEMBER 14) Na 139 (NOVEMBER 15) 140 (NOVEMBER 14) K 4.5 (NOVEMBER 15) 4.1 (NOVEMBER 14) CO2 L 21 (NOVEMBER 15) L 21 (NOVEMBER 14) Cl 107 (NOVEMBER 15) 109 (NOVEMBER 14) Cr 0.70 (NOVEMBER 15) 0.56 (NOVEMBER 14) BUN 12 (NOVEMBER 15) 9 (NOVEMBER 14) Glucose Random 78 (NOVEMBER 15) 78 (NOVEMBER 14) Mg 2.3 (NOVEMBER 15) Phos 3.5 (NOVEMBER 15) Ca 9.1 (NOVEMBER 15) L 7.8 (NOVEMBER 14) PT 14.0 (NOVEMBER 15) 13.0 (NOVEMBER 14) INR 1.08 (NOVEMBER 15) 0.98 (NOVEMBER 14) PTT H 37.6 (NOVEMBER 15) 33.2 (November 3) . Chest x-ray results ECG interpretation Impression and Plan Diagnosis Acute headache ([id number], Working, Medical). Course: Worsening. Orders Education and Follow-up: Counseled : Patient, Regarding treatment, Regarding medications. [employer] 32M hx CP, CADDY PACKER shunt, chronic foot pressu re ulcers. Consulted for management of acute headache. - Necessary to work up etiology of heada ches. Per primary team, no current neurosurgical intervention planned. Recommend neurology consult if primary team concerned for migraines per notes. - initiated multimodal pain regimen. - APMS will continue to follow Donna Hernandez MD PGY3 Addendum by Vicente Carlisle MD on 11/16/2017 09:19 I have personally evaluated this patient and discussed the plan of care with this resident. I have reviewed the note below and agree with the history, examination findings, assessment and plan. Extracted from:Title: History and Physical Author: Zenia Frausto MD Date: 11/15/17 Patient is a 32-year-old with spina bifi daand hydrocephalus treated by CADDY PACKER shunt who presented to [facility] emergency room complaining of headache and blurry vision. He was there 2 days and transferredt o [facility] for higher level of care. Here he was evaluate by ophthalmology and neurosurgery. There is no surgical interventionwarranted at this time. He has evidence of UTI andpossibly infec tedheel and sacral decubiti that were pr esent on admission. CRP is 15. We will need to treat with aggressive antibiotic regimen, wound care, and documentsthere is no systemic infection beforeany CSF can be obtained from his CADD[employer] P[employer] shunt. Wewill t ry to avoid any IV narcotics,manage his pain with oral analgesicsas he is toleratingall his meals,and de-escalate his antibiotics as soon as possible. 1.Acute headache Patient has headaches that may bedue to infection of his CADDY P[employer]ER system, however the differential also includes migraine, neuropathy and narcotics withdrawal. 2.CADDY PACKER (ventriculoperitoneal) shunt status Appears to be functioning well and decompressing the ventric les We will avoid anyinterventionand access until systemic infec tion is ruled out 3.Acute UTI Broad-spectrum antibiotic coverage until systemic infection is ruled out 4.Decubitus ulcer Present on admission We will ask wound care to evaluate and prescribe treatment Lovenox Home once etiology of headache is known [facility] Hospitalist service is primary. Page [phone] aiyana montalvorkirt. Plan of Care No Data Provided for This Section Social History Social History Date Source Social History TypeResponse 05/22/2018 [facility] Smoking Status Current every day smoker; Type: Cigarett es; Lives with someone who smokes; Cigarette Smoking Last 365 Days Yes; Reg Smoking Cessation Counseling No entered on: 05/22/18 Social History TypeResponse 05/22/2018 [facility] Smoking Status Current every day smoker; Type: Cigarett es; Lives with someone who smokes; Cigarette Smoking Last 365 Days Yes; Reg Smoking Cessation Counseling No entered on: 05/22/18 Family History No Data Provided for This Section Advance Directives No Data Provided for This Section Functional Status No Data Provided for This Section
--- OUTSIDE RECORDS SUMMARY | 2020-01-07 14:30 | XMS REPORT | Continuity of Care Document ---
:1985 Author Organization [facility] t Address [address] [place] [address] Care Team Providers Name Role Phone Sharpless Primary Care Physician Mitchell NUNO Attending Clinician Norma NUNO Attending Clinician Alex NUNO Attending Clinician MITCHELL Attending Clinician Unavailable Alex De Jesus Attending Clinician Percy Quesada Attending Clinician LAMAR GENAO Attending Clinician Unavailable ALEX Admitting Clinician Unavailable Kevin Rowland Admitting Clinician Percy Quesada Admitting Clinician LAMAR GENAO Admitting Clinician Unavailable Payers Payer Name Policy Policy Number Effective Expiration Source Type Date Date MEDICAID - MEDICAID [id number] xxxxxxxxx [id number] ChristianaCareD COMM STAR [facility] - PLANxxxxxxxxxMedicaid Med ical Contracted Center Problems Condition Condition Condition Status Onset Resolution Last Treating Co mments Source Name Details Category Date Date Treatment Clinician Date Hyperglyce Hyperglyce Disease Active [facility] [place] pedro pedro 07-21 [facility] without without 00:00: Medical ketosis ketosis 00 Center HEADACHE Diagnosis Active 2017-072018-05-27 M emoria 07-22 22:05:00 l HEADACHE 00:00: Christian n 00 Active 05/22/2018 [facility] SHUNT Diagnosis Active 2017-11-14 Mem oria MALFUNCTIO 11-14 20:00:00 l N SHUNT 00:00: Jason MALFUNCTIO 00 N Active 11/14/2017 [facility] ACUTE Diagnosis Active 2017-11-20 Mem oria HEADACHE 11-14 09:20:00 l ACUTE 00:00: [place] HEADACHE 00 Active 11/14/2017 [facility] Spina Spina Disease Active [facility] bifida bifida 12-24 [facility] - 00:00: Medical 00 [place] Pyelonephr Pyelonephr Disease Active [facility] itis itis 12-23 [facility] - 00:[facility]: Medical 00 [place] Nicotine Nicotine Problem [facility] dependence Sania kes - Memoria l [facility] Clinics Lumbar Lumbar Problem Active [facility] spina spina [facility] - bifida bifida Memoria with with l hydrocepha hydrocepha Ou tpati bam bam ent Clinics Dependence Dependence Problem Active [facility] on [facility] - wheelchair wheelchair Me moria l [facility] Clinics Fecal Fecal Problem Active [facility] incontinen incontinen Sania kes - ce ce Memoria l [facility] Clinics Foot ulcer Foot ulcer Problem Active [facility] l [facility] Depression Depression Problem Active [facility] with with [facility] - anxiety anxiety Memoria l [facility]ics Paraplegia Paraplegia Problem Active [facility] l [facility]ics Constipati Constipati Problem Active [facility] - Memoria l [facility] Clinics Incontinen Incontinen Problem Active [facility] ce of ce of [facility] - urine urine Memoria l [facility] Clinics Nausea Nausea Problem Active [facility] alone alone [facility] l [facility] Episodic Episodic Problem Active [facility] tension-ty tension-ty Sania kes - pe pe Memoria headache, headache, l not not [facility] intractabl intractabl en t e e Clinics 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 [facility] (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 Me moria l) shunt l) shunt l status status [facility] Clinics Nonintract Nonintract Problem Active [facility] able able [facility] - episodic episodic Memori a headache, headache, l unspecifie unspecifie Ou tpati d headache d headache en t type type Clinics Mental Mental Problem Active [facility] disorder, disorder, Luke s - not not Memoria otherwise otherwise l specified specified Outp ati ent Clinics Insomnia Insomnia Problem Active [facility] due to due to [facility] - other other Memoria mental mental l disorder disorder Outpat i ent Clinics Ulcer of Ulcer of Problem Active [facility] left foot, left foot, Sania kes - unspecifie unspecifie Me moria d ulcer d ulcer l stage stage Outpati ent Clinics Bipolar Bipolar Problem Active [facility] depression depression Sania kes - Memoria l Outpati ent Clinics Nausea and Nausea and Problem Active [facility] vomiting, vomiting, Luke s - intractabi intractabi Me moria lity of lity of l vomiting vomiting Outpat i not not ent specified, specified, Cl inics unspecifie unspecifie d vomiting d vomiting type type Blood Blood Problem Active [facility] tests for tests for Luke s - routine routine Memoria general general l physical physical Outpat i examinatio examinatio en t n n Clinics Spina Problem 2018-12-09 Memor ia bifida, 14:14:02 l unspecifie Spina Kristen nn d bifida, unspecifie d 12/09/2018 [facility] Nausea Problem 2018-12-09 Memor ia with 14:14:02 l vomiting, Nausea Kristen nn unspecifie with d vomiting, unspecifie d 12/09/2018 [facility] Diplopia Problem 2018-12-09 Mem oria 14:14:02 l Diplopia Christian n 12/09/2018 [facility] 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, 14:14:02 l unspecifie Cerebral He rmann d palsy, unspecifie d 12/09/2018 [facility] 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-09 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:14:02 l other Acquired Christian n specified absence of parts of other digestive specified tract parts of digestive tract 12/09/2018 [facility] Nicotine Problem 2018-12-09 Mem oria dependence 14:14:02 l , Nicotine Christian n cigarettes dependence , , uncomplica cigarettes lester , uncomplica lester 12/09/2018 [facility] Presence Problem 2018-12-09 Mem oria of 14:14:02 l cerebrospi Presence He rmann nal fluid of drainage cerebrospi device nal fluid drainage device 12/09/2018 [facility] Allergy Problem 2018-12-09 Erwin benjamin status to 14:14:02 l other Allergy [place] antibiotic status to agents other status antibiotic agents status 12/09/2018 [facility] Allergy Problem 2018-12-09 Erwin benjamin status to 14:14:02 l other Allergy Jason drugs, status to medicament other s and drugs, biological medicament substances s and status biological substances status 12/09/2018 [facility] Allergy Problem 2018-12-09 Erwin benjamin status to 14:14:02 l narcotic Allergy Kristen nn agent status to status narcotic agent status 12/09/2018 [facility] Asthma Problem Resolve 2019-03-06 Erwin benjamin (disorder) d 01:05:55 l Asthma Jason (disorder) Resolved Problem 03/06/2019 [facility] Bronchitis Problem Resolve 2019-03-06 Memoria (disorder) d 01:05:55 l Jason Bronchitis (disorder) Resolved Problem 03/06/2019 [facility] Cerebral Problem Resolve 2019-03-06 Me moria palsy d 01:05:55 l (disorder) Cerebral He rmann palsy (disorder) Resolved Problem 03/06/2019 [facility] Hydrocepha Problem Resolve 2019-03-06 Memoria bam d 01:05:55 l (disorder) Christian n Hydrocepha bam (disorder) Resolved Problem 03/06/2019 [facility] Osteomyeli Problem Resolve 2019-03-06 Memoria tis d 01:05:55 l (disorder) Christian n Osteomyeli tis (disorder) Resolved Problem 03/06/2019 [facility] Acute pain Problem Active 2019-03-06 M emoria (finding) 01:05:55 l Acute Jason pain (finding) Active Problem 03/06/2019 [facility] Headache Problem Active 2019-03-06 Mem oria (finding) 01:05:55 l Headache Christian n (finding) Active Problem 03/06/2019 [facility] Headache Problem 2017-2018-12-09 2018-12-09 Memoria - 14:14:02 14:14:02 l Headache 06:00: Christian n 00 05/22/2018 12/09/2018 [facility] Allergies, Adverse Reactions, Alerts Allergy Allergy Status Severity Reaction(s) Onset Inactive Treating Comm ents Source Name Type Date Date Clinician Sulfamet Propensi Active Hives [facility] hoxazole ty to 12-23 [facility] - -Trimeth adverse 00:00: Medical oprim reaction 00 Center s Levoflox Propensi Active Hives [facility] acin ty to 12-23 [facility] - adverse 00:00: Medical reaction 00 Center s Morphine Propensi Active Hives [facility] ty to 12-23 [facility] - adverse 00:00: Medical reaction 00 Center s Sesame Propensi Active Hives [facility] Seed ty to 12-23 [facility] - adverse 00:00: Medical reaction 00 Center s Ketorola Propensi Active Rash [facility] c ty to 12-23 [facility] - adverse 00:00: Medical reaction 00 Center s Vancomyc Propensi Active Rash [facility] in ty to 12-23 [facility] - Analogue adverse 00:00: Medical s reaction 00 Center s Ondanset Propensi Active Nausea And [facility] gene Hcl ty to Vomiting 12-23 [facility] - (Pf) adverse 00:00: Medical reaction 00 Center s Morphine Adverse Active Info Not [facility] Sulfate Reaction Available [facility] - ER Memoria l Outpati ent Clinics Levaquin Adverse Active Info Not [facility] Reaction Available [facility] Zofran Adverse Active Info Not [facility] Reaction Available [facility] amoxicil amoxicil Active [facility] [place] morphine morphine Active Memori a l [place] Toradol Toradol Active Memoria l [place] Minocin Minocin Active Memoria l Jason Zofran Zofran Active Memoria l Jason Levaquin Levaquin Active Memori a l [place] Bactrim Bactrim Active Memoria l [place] Social History Social Habit Start Date Stop Date Quantity Comments Source History of tobacco Cigarette Smoker [facility] - use [facility] Sex Assigned At [facility] Cigarettes smoked 2016-12-25 2016-12-25 [facility] - current (pack per 00:00:00 00:00:00 [facility] Center day) - Reported Smoking Status Start Date Stop Date Source Social History 2018-05-22 11:26:10 [facility] Her manzo Medications Ordered Filled Start Stop Current Ordering Indication Dosage Frequency Signature Comments Components Source Medication Medication Date Date Medication? Clinician (SIG) Name Name buPROPion 2020- No 150mg QD Take [address] [facility] (WELLBUTRIN 1-17 -16 tablet [facility] - XL) 150 MG 00:00: 23:59 (150 mg Med ical 24 hr 00 :00 total) by Center tablet mouth daily. citalopram 2020- No 40mg QD Take [address] [facility] (CELEXA) 40 -17 16 tablet (40 L ukes - MG tablet 00:00: 23:59 mg total) Me dical 00 :00 by mouth Center daily. zinc Yes 5g Q.5D Apply [address] [facility] oxide-ibrdie 1-16 topically Charly es - latum 00:00: 2 (two) Medical (CRITIC-AID 00 times Center ) 20-51 % daily. Pste topical paste meropenem Yes 1g Inject [address] (MERREM) -16 intravenou [facility] - MBP 1 gm in 00:00: sly every M edical 100 mL NS 00 8 (eight) Cente r hours. insulin 2019- Yes 58U Q.5D Inject 58 [facility] glargine 1-16 Units [facility] - (LANTUS) 00:00: subcutaneo Med ical 100 unit/mL 00 usly 2 Center injection (two) times daily Use as directed. insulin 2020- No 0U Inject [facility] lispro 1-16 01-15 0-12 Units [facility] - (HUMALOG) 00:00: 23:59 subcutaneo M edical 100 unit/mL 00 :00 usly 3 Center injection (three) times daily before meals. insulin 2020- No 25U Inject [address] [facility] lispro 1-16 01-15 Units [facility] - (HUMALOG) 00:00: 23:59 subcutaneo M edical 100 unit/mL 00 :00 usly 3 Center injection (three) times daily before meals. traZODone 2019- No 100mg QD Take [address] [facility] [facility] (DESYREL) 1-16 02-15 tablet [facility] - 100 MG 00:00: 23:59 (100 mg Medical tablet 00 :00 total) by Center mouth nightly for 30 days. normal 2017-07 No 1,000 mL, Memori a saline 0.9% 07-22 Rate: 100 l IV 1,000 mL 11:04: ml/hr, Herm carly Infuse over: 10 hr, Route: IV, Dosing Weight 131.818 kg, Total Volume: 1,000, Start date: 05/22/18 5:04:00 INDUSTRIAL REHABILITATION CONSULTANT, Duration: 30 day, Stop date: 06/21/18 5:03:00 INDUSTRIAL REHABILITATION CONSULTANT, 2.4, m2 Magnesium 2017-07 No Notes: Memori a Sulfate 07-22 WASTE: F/P l 10:36: - Sink; E [place] - Municipal Trash Bin Isolyte S 2017-07 No Notes: Memori a PH-7.4 07-22 (Same as: l (Bolus) IV 10:36: Isolyte S rm PH 7.4) Phenergan 2017-07 No 12.5 mg, Erwin benjamin 07-22 0.5 mL, l 10:35: Route: IVPB, Drug form: INJ, ONCE, Dosing Weight 131.818, kg, Priority: STAT, Start date: 05/22/18 4:35:00 INDUSTRIAL REHABILITATION CONSULTANT, Stop date: 05/22/18 4:35:00 INDUSTRIAL REHABILITATION CONSULTANT Citalopram Citalopram Yes Na Gamble [address] [facility] Hydrobromid Hydrobromid 7-16 L ukes - e e 00:00: Memoria 00 [facility] ent [facility] Seroquel Seroquel Yes Na Gamble [address] 7-16 [facility] - 00:00: Memoria 00 l [facility] Docusate Yes 100 mg = 1 Mem oria Sodium 100 5-08 cap, PO, l MG Oral 14:56: BID, 0 [place] Capsule 00 Refill(s) Zosyn Yes 0 Memoria 5-08 Refill(s) l 14:56: Jason 00 celecoxib Yes 200 mg = 1 Me moria 200 mg oral 5-08 cap, PO, l capsule 14:56: BID, 0 Jason 00 Refill(s) ascorbic Yes 500 mg = 1 Mem oria acid 5-08 tab, PO, l 14:56: BID, 0 Jason Refill(s) acetaminoph Yes 1,000 mg = Memoria en 500 mg 5-08 2 tab, PO, l oral tablet 14:56: Q6Hnow, 0 H ermann Refill(s) Oxycodone Yes 5 mg = 1 Erwin benjamin Hydrochlori 5-08 tab, PO, l de 5 MG 14:56: Q4H, PRN Christian n Oral Tablet 00 Pain Score 4-6, 0 Refill(s) zinc Yes 220 mg = 1 Memoria sulfate 220 5-08 cap, PO, l mg oral 14:56: Daily, 0 Christian n capsule 00 Refill(s) multivitami Yes 1 tab, PO, Memoria n 5-08 Daily, 0 l 14:56: Refill(s) [place] methocarbam Yes 1,000 mg = Memoria ol 500 mg 5-08 2 tab, PO, l oral tablet 14:56: Q8H, 0 Herm carly Refill(s) LORazepam Yes 0.5 mg = 1 Me moria 0.5 mg oral 5-08 tab, PO, l tablet 14:56: Q8H, PRN Jason Anxiety, 0 Refill(s) Lidocaine Yes 3 patch, Erwin benjamin Hydrochlori 5-08 TOP, l de 0.05 14:56: Daily, Jason MG/MG 00 Remove Transdermal after 12 Patch hours, 0 [Lidoderm] Refill(s) Robaxin No Notes: Memoria 5-06 (Same l 21:00: as:Robaxin Jason ) Oxycodone No Notes: Memori a Hydrochlori 5-06 (Same as: l de 5 MG 18:06: Roxicodone Herm carly Oral Tablet ) Ativan No Notes: Memoria 5-06 (Same as: l 15:18: Ativan) [place] Trazodone No Notes: Memori a Hydrochlori 5-06 (Same As: l de 50 MG 02:00: Desyrel) Kristen nn Oral Tablet 00 remove No Notes: Memoria patch 5-06 Remove l 02:00: patch 12 Jason 00 hours after applicatio n each day. Oxycodone No Notes: Memori a Hydrochlori 5-05 (Same as: l de 5 MG 22:01: Roxicodone Herm carly Oral Tablet 00 ) Celebrex No Notes: Memoria 5-05 NSAID. l 22:00: Please [place] 00 check indication . Not for seizure. (Same As: CeleBREX) Vancomycin No 2001 mg: Me moria 5-05 infuse l 21:00: over 2.5 [place] 00 hours Lidocaine No Notes: Memori a Hydrochlori 5-05 Apply only l de 0.05 14:00: once for Christian n MG/MG 00 up to 12 Transdermal hours in a Patch 24-hour [Lidoderm] period (12 hours on and 12 hours off). (Same as: Lidoderm) "Remove old patch before applicatio n of new patch" Phenergan No Notes: Do Mem oria 5-04 not give l 22:40: IV push. Jason 00 (Same as: Phenergan) Dilaudid No Notes: Memoria 5-04 Same as l 22:40: Dilaudid [place] 00 Tramadol No Notes: Not Mem oria 5-04 to exceed l 22:00: 400mg/day. [place] 00 (Same As: Ultram) gabapentin No Notes: Memor ia 5-04 (Same as: l 22:00: Neurontin) [place] 00 Acetaminoph No Notes: Max Memoria en -04 acetaminop l 22:00: hen 4000 Jason 00 mg/day (4 gm/day). (Same as: Tylenol Extra Strength) Robaxin No Notes: Memoria 5-04 (Same l 22:00: as:Robaxin [place] 00 ) Oxycodone No Notes: Memori a Hydrochlori 5-04 (Same as: l de 5 MG 21:33: Roxicodone Herm carly Oral Tablet 00 ) Beneprotein No Notes: Erwin benjamin 7 gm pkt 5-04 (Same as: l 21:30: Beneprotei [place] 00 n) Acetaminoph 2018-0 No 1 tab, PO, Memoria en 325 MG / 5-04 TID, 0 l Oxycodone 17:12: Refill(s) Her jovany Hydrochlori 00 de 10 MG Oral Tablet [Percocet 10325] Dilaudid No 0.5 mg, Memori a 5-04 0.25 mL, l 16:01: Route: [place] 00 IVP, Drug form: INJ, ONCE, Start date: 11/15/17 11:01:00 CDT, Stop date: 11/15/17 11:01:00 CDT Phenergan No Notes: Memori a 5-04 (Same as: l 15:43: Phenergan) Dilaudid No 2 mg, Memoria 5-04 Route: l 15:43: IVP, ONCE, Dosing Weight 127.027, kg, Priority: STAT, Start date: 11/15/17 10:43:00 CDT, Stop date: 11/15/17 10:43:00 CDT Docusate No Notes: Memoria 5-04 (Same as: l 14:00: Colace) (Do Not Crush) Zinc No Notes: Memoria Sulfate -04 (Zinc l 14:00: sulfate capsule) - 220 mg Zinc sulfate = 50 mg elemental zinc Same as Zinc Sulfate ascorbic No Notes: Memoria acid 5-04 (Same as: l 14:00: Vitamin C) multivitami No Notes: Erwin benjamin n -04 (Same l 14:00: as:Thera) WASTE: F/P - Black; E - Municipal Trash Bin Take with food. Naproxen No Notes: Memoria 5-04 (Same as: l 07:00: Naprosyn) Take with food. Zosyn No Notes: Memoria 5-04 (Same as: l 07:00: Zosyn) Dosing based on Piperacill in component MEDICATION WASTE Product Size: 3375 mg Product Wasted: ___ mg Vancomycin No 2001 mg: Me moria 5-04 infuse l 07:00: over 2.5 [place] 00 hours For adult patients only: Round to nearest 250 mg per Medical Staff approval MEDICATION WASTE Product Size: 1000 mg Product Wasted: ___ mg Enoxaparin No Notes: Memor ia -04 (Same as: l 07:00: Lovenox) Jason 00 Sodium No 1,000 mL, Memori a Chloride 11-15 Rate: 125 l 0.9% IV 06:46: ml/hr, [place] 1,000 mL 00 Infuse over: 8 hr, Route: IV, Dosing Weight 127.27 kg, Total Volume: 1,000, Start date: 11/15/17 1:46:00 CDT, Duration: 30 day, Stop date: 12/15/17 1:45:00 CDT, 2.44, m2 Saline No Notes: Memoria Flush 0.9% 11-15 (Same as: l 06:46: BD Jason Posiflush) Acetaminoph No Notes: Do M emoria en -04 not exceed l 06:46: 4 gm/day. Jason (Same as: Tylenol) Acetaminoph No Notes: Erwin benjamin en 325 MG / - (Same as: l Hydrocodone 06:46: [place] Kristen nn Bitartrate 00 325/5) Do 5 MG Oral not exceed Tablet 4gm/day of acetaminop hen. Reglan No Notes: Memoria 5-04 (Same as: l 04:27: Reglan) Jason 00 Benadryl No Notes: Memoria 5-04 (Same as: l 04:27: Benadryl) Jason Magnesium No Notes: Memori a Sulfate 11-15 WASTE: F/P l 04:26: - Sink; E Jason 00 - Municipal Trash Bin Sodium No 1,000 mL, Memori a Chloride 5-04 1000 l 0.9% 04:26: ml/hr, Jason (Bolus) IV 00 Infuse Over: 1 hr, Route: IV, 1,000, Drug form: INJ, ONCE, Priority: STAT, Dosing Weight 127.273 kg, Start date: 11/14/17 23:26:00 CDT, Stop date: 11/14/17 23:26:00 CDT Zosyn No 4.5 gm, Memoria 11-15 Route: l 04:10: IVPB, Jason ONCE, Dosing Weight 127.273, kg, Priority: STAT, Start date: 11/14/17 23:10:00 CDT, Stop date: 11/14/17 23:10:00 CDT, ABX Indication : Bacteremia Vancomycin No 2000 mg: Me moria 11-15 infuse l 04:10: over 2.5 [place] hours For adult patients only: Round to nearest 250 mg per Medical Staff approval MEDICATION WASTE Product Size: 1000 mg Product Wasted: ___ mg normal No 1,000 mL, Memori a saline 0.9% 11-15 Rate: 75 l IV 1,000 mL 03:39: ml/hr, Infuse over: 13.3 hr, Route: IV, Dosing Weight 127.273 kg, Total Volume: 1,000, Start date: 11/14/17 22:39:00 CDT, Duration: 30 day, Stop date: 12/14/17 22:38:00 CDT, 2.36, m2 Acetaminoph No Notes: Max Memoria en 11-15 acetaminop l 02:56: hen 4000 Jason 00 mg/day (4 gm/day). (Same as: Tylenol Extra Strength) Rocephin No Notes: Memoria 11-15 (Same As: l 02:21: Rocephin). Jason 00 MEDICATION WASTE Product Size: 1000 mg Product Wasted: _0__ mg Morphine No 4 mg, Memoria 11-15 Route: l 00:05: IVP, ONCE, [place] 00 Dosing Weight 127.273, kg, Priority: STAT, Start date: 11/14/17 19:05:00 CDT, Stop date: 11/14/17 19:05:00 CDT Benadryl No Notes: Memoria - (Same as: l 23:14: Benadryl) Jason 00 Benadryl No Notes: Memoria 5- (Same as: l 22:56: Benadryl) Jason 00 Morphine 2018-0 No 4 mg, 1 Memori a 5-03 mL, Route: l 22:56: IVP, Drug form: SOLN, ONCE, Dosing Weight 127.273, kg, Priority: STAT, Start date: 11/14/17 17:56:00 CDT, Stop date: 11/14/17 17:56:00 CDT oxyCODONE-a 2016-0 Yes 1{tbl} Take [address] [facility] cetaminophe 6-11 tablet by Charly tabares - n 00:50: mouth Medical (PERCOCET) 37 every 4 Center 10-325 mg (four) per tablet hours as needed for Pain. Tylenol Tylenol Yes Na Gamble [address] with with as needed [facility] - Codeine #4 Codeine #4 Mem oria l [facility] Macrobid Macrobid Yes Na Gamble [address] [facility] with food [facility] Pantoprazol Pantoprazol Yes Na Gamble [address] [facility] e Sodium e Sodium [facility] ent Clinics Collagenase Collagenase Yes Na Gamble [address] [facility] applicatio [facility] - n to Memoria affected l area [facility] Vital Signs Vital Name Observation Time Observation Value Comments Source Systolic blood 2019-07-30 12:58:00 136 mm[Hg] [facility] Diastolic blood 2019-07-30 12:58:00 78 mm[Hg] [facility] Heart rate 2019-07-30 12:58:00 96 /min [facility] Body temperature 2019-07-30 12:58:00 35.78 Abi [facility] Respiratory rate 2019-07-30 12:58:00 18 /min [facility] Oxygen saturation in 2019-07-30 12:58:00 96 /min [facility] Arterial blood by Medical Ce nter Pulse oximetry Respitory Rate 2018-05-22 17:30:00 Gerri al Jason Systolic (mm Hg) 2018-05-22 17:30:00 Erwin Gomez Diastolic (mm Hg) 2018-05-22 17:30:00 Mem orial [place] Temperature Oral (F) 2018-05-22 17:30:00 98.4 F Memorial Jason Temperature Oral (F) 2018-05-22 16:23:00 98.6 F Memorial [place] Systolic (mm Hg) 2018-05-22 16:23:00 Erwin rial Jason Diastolic (mm Hg) 2018-05-22 16:23:00 Mem orial Jason Respitory Rate 2018-05-22 14:00:00 Memori al [place] Systolic (mm Hg) 2018-05-22 14:00:00 Erwin rial [place] Diastolic (mm Hg) 2018-05-22 14:00:00 Mem orial [place] Respitory Rate 2018-05-22 13:30:00 Memori al [place] BMI Calculated 2018-05-22 10:16:00 Memori al [place] Height 2018-05-22 10:16:00 149.86 cm Memorial Jason Weight 2018-05-22 10:16:00 Memorial Jason Heart Rate 2018-05-22 10:16:00 Memorial Jason Temperature Oral (F) 2018-05-22 10:16:00 97.9 F Memorial [place] Temperature Oral (F) 2017-11-19 13:40:00 97.2 F Memorial [place] Systolic (mm Hg) 2017-11-19 13:40:00 Erwin rial Jason Diastolic (mm Hg) 2017-11-19 13:40:00 Mem orial Jason Heart Rate 2017-11-19 13:40:00 Memorial Jason Respitory Rate 2017-11-19 13:40:00 Memori al Jason Heart Rate 2017-11-19 05:24:00 Memorial [place] Systolic (mm Hg) 2017-11-19 05:24:00 Erwin rial Jason Diastolic (mm Hg) 2017-11-19 05:24:00 Mem orial Jason Respitory Rate 2017-11-19 05:24:00 Memori al Jason Temperature Oral (F) 2017-11-19 05:24:00 98.1 F Memorial [place] Respitory Rate 2017-11-19 01:15:00 Memori al [place] Systolic (mm Hg) 2017-11-19 01:15:00 Erwin rial Jason Diastolic (mm Hg) 2017-11-19 01:15:00 Mem orial Jason Heart Rate 2017-11-19 01:15:00 Memorial Jason Temperature Oral (F) 2017-11-19 01:15:00 98.1 F [facility] Weight 2017-11-18 14:00:00 [facility] Weight 2017-11-17 14:[facility] 2017-11-15 14:00:00 [facility] [place] BMI Calculated 2017-11-15 05:43:00 Gerri Malcolm Height 2017-11-15 05:43:00 162.56 cm [facility] Height 2017-11-14 22:41:00 149.86 cm [facility] BMI Calculated 2017-11-14 22:41:00 Gerri seo [place] Procedures Procedure Date / Time Performing Clinician Source Performed RHYTHM STRIP - SCAN 2019-08-07 14:11:01 Provider [facility] RHYTHM STRIP - SCAN 2019-07-31 15:32:49 Provider [facility] POCT-GLUCOSE METER 2019-07-30 12:52:00 Enio Green [facility] POCT-GLUCOSE METER 2019-07-30 09:03:00 Enio Green [facility] POCT-GLUCOSE METER 2019-07-29 20:45:00 [facility] POCT-GLUCOSE METER 2019-07-29 16:35:00 [facility] POCT-GLUCOSE METER 2019-07-29 12:08:00 Enio Green [facility] POCT-GLUCOSE METER 2019-07-29 08:35:00 Enio Green [facility] POCT-GLUCOSE METER 2019-07-28 21:02:00 Enio Green [facility] MR LOWER EXTREMITY WITHOUT 2019-07-28 18:46:00 Enio Green [facility] POCT-GLUCOSE METER 2019-07-28 12:42:00 Norma Enio [facility] POCT-GLUCOSE METER 2019-07-28 08:24:00 [facility] POCT-GLUCOSE METER 2019-07-27 20:57:00 [facility] POCT-GLUCOSE METER 2019-07-27 18:03:00 [facility] POCT-GLUCOSE METER 2019-07-27 12:18:00 [facility] POCT-GLUCOSE METER 2019-07-27 07:56:00 [facility] POCT-GLUCOSE METER 2019-07-26 21:14:00 [facility] POCT-GLUCOSE METER 2019-07-26 17:22:00 [facility] POCT-GLUCOSE METER 2019-07-26 11:16:00 [facility] POCT-GLUCOSE METER 2019-07-26 08:07:00 [facility] POCT-GLUCOSE METER 2019-07-25 21:20:00 [facility] POCT-GLUCOSE METER 2019-07-25 17:34:00 [facility] POCT-GLUCOSE METER 2019-07-25 11:56:00 [facility] POCT-GLUCOSE METER 2019-07-25 08:11:00 [facility] BASIC METABOLIC PANEL (7) 2019-07-25 06:26:00 Norma Enio I [facility] CBC W/PLT COUNT & AUTO 2019-07-25 06:26:00 Norma [facility] POCT-GLUCOSE METER 2019-07-24 19:43:00 [facility] POCT-GLUCOSE METER 2019-07-24 16:28:00 [facility] POCT-GLUCOSE METER 2019-07-24 11:18:00 [facility] POCT-GLUCOSE METER 2019-07-24 07:25:00 [facility] CRIS-65 2019-07-24 04:47:00 Fredrick [facility] ISLET CELL AB SCR 2019-07-24 04:47:00 Fredrick [facility] LIPID PANEL 2019-07-24 04:47:00 Alex [facility] HEMOGLOBIN A1C 2019-07-24 04:47:00 Alex [facility] BASIC METABOLIC PANEL (7) 2019-07-24 04:47:00 Norma Enio [facility] ISLET CELL AB SCREEN 2019-07-24 04:47:00 Fredrick [facility] ISLET CELL AB TITER 2019-07-24 04:47:00 Fredrick [facility] CBC W/PLT COUNT & AUTO 2019-07-24 04:47:00 Norma [facility] POCT-GLUCOSE METER 2019-07-23 23:35:00 [facility] PERIPHERAL VASCULAR REPORT 2019-07-23 21:24:16 Allison [facility] SCAN [facility] POCT-GLUCOSE METER 2019-07-23 18:25:00 [facility] POCT-GLUCOSE METER 2019-07-23 15:09:00 [facility] BLOOD CULTURE 2019-07-23 11:47:00 Norma [facility] POCT-GLUCOSE METER 2019-07-23 10:18:00 [facility] ARTERIAL DOPPLER LEGS 2019-07-23 09:35:00 Alex [facility] LIPID PANEL 2019-07-23 04:07:00 [facility] HEMOGLOBIN A1C 2019-07-23 04:07:00 Veronica Salinas [facility] BASIC METABOLIC PANEL (7) 2019-07-23 04:07:00 Enio Green [facility] CBC W/PLT COUNT & AUTO 2019-07-23 04:07:00 Norma [facility] (MANUAL DIFFERENTIAL) 2019-07-23 04:07:00 Norma [facility] POCT-GLUCOSE METER 2019-07-22 21:41:00 [facility] US ABDOMEN LIMITED 2019-07-22 18:45:00 [facility] POCT-GLUCOSE METER 2019-07-22 18:27:00 [facility] CBC W/PLT COUNT & AUTO 2019-07-22 16:50:00 Roman [facility] (CELLAVISION MANUAL DIFF) 2019-07-22 16:50:00 Roman Anthony Sussy [facility] URINALYSIS W/ REFLEX URINE 2019-07-22 16:40:00 Roman [facility] POCT-GLUCOSE METER 2019-07-22 16:15:00 [facility] CT BRAIN WITHOUT IV 2019-07-22 15:26:00 [facility] XR SHUNT SERIES 2019-07-22 14:49:00 [facility] POCT-GLUCOSE METER 2019-07-22 11:23:00 [facility] POCT-GLUCOSE METER 2019-07-22 07:36:00 [facility] TSH/FREE T4 IF INDICATED 2019-07-22 07:08:00 Veronica Salinas [facility] BASIC METABOLIC PANEL (7) 2019-07-22 07:08:00 Veronica Salinas [facility] LIPID PANEL 2019-07-22 07:08:00 Veronica Salinas [facility] HEMOGLOBIN A1C 2019-07-22 07:08:00 Veronica Salinas [facility] POCT-GLUCOSE METER 2019-07-22 00:37:[address] [facility] WOUND CULTURE + GRAM STAIN 2019-07-22 00:27:00 Veronica Salinas [facility] URINE CULTURE 2019-07-22 00:27:00 Veronica Salinas [facility] DRUG SCREEN, URINE, 2019-07-22 00:27:00 Veronica Salinas [facility] XR FOOT 2 VIEWS RIGHT 2019-07-21 21:22:00 Veronica Salinas [facility] POCT-GLUCOSE METER 2019-07-21 20:52:[address] [facility] Cholecystectomy 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 Plan of Care Planned Activity Planned Date Details Comments Source Future Scheduled 2020-03-[address] [facility] 00:00:00 (Season Ended) [code = Medic al Center INFLUENZA VACCINE (Season Ended)] Future Scheduled 2019-10-23 HEMOGLOBIN A1C [code [facility] HEMOGLOBIN A1C] Medical Cent er Future Scheduled [address] [facility] - Test 00:00:00 2-64 YEARS AT RISK (1 Medica l Center of 1 - PPSV23) [code = PNEUMOCOCCAL VACCINE 2-64 YEARS AT RISK (1 of 1 - PPSV23)] Encounters Start End Encounter Admission Attending Care Care Encounter Source Date/Time Date/Time Type Type Clinicians Facility Department ID 2019-03-02 2019-03-03 Outpatient MHMISCHER MHMISCHER [id number] 11:11:26 23:59:59 08 2019-02-10 2019-02-11 Outpatient MHMISCHER MHMISCHER [id number] 11:16:47 23:59:59 07 2019-01-26 2019-01-27 Outpatient MHMISCHER MHMISCHER [id number] 10:52:03 23:59:59 06 2019-01-01 2019-01-02 Outpatient MHMISCHER MHMISCHER [id number] 13:55:03 23:59:59 05 2018-05-22 2018-05-22 Outpatient Neal [facility] [id number] 04:12:00 12:24:00 Zohaib Ca 2018-02-18 2018-02-18 [facility] [id number] 11:15:00 11:15:00 [place] [employer] [facility] Medicine Outpati ent Clinics 2018-01-27 2018-01-27 [facility] [id number] 11:30:00 11:30:00 [place] [employer] [facility] [address] [facility] Medicine Outpat[facility] ent Clinics 2018-01-03 2018-01-03 [facility] [id number] 15:41:00 15:41:00 [place] [employer] [facility] [address] [facility] Outpat[facility] ent Clinics 2017-12-23 2017-12-23 [facility] [id number] 15:42:00 15:42:00 [place] [employer] [address] [facility] [address] [facility] Medicine Outpati ent Clinics 2017-12-17 2017-12-17 [facility] [id number] 11:00:00 11:00:00 [place] [employer] [facility] Medicine Outpati ent Clinics 2017-11-14 2017-11-19 Outpatient Ruth Quesada [facility] [id number] 17:40:00 12:28:00 Percy 23 Results Test Description Test Time Test Comments Results Result Comments Source POC-Glucose meter 2019-07-30 13:03:00 Test Item Value Reference Range Interpretation Comme [facility] POC-Glucose Meter (test code = 140 mg/dL 70-110 H : TESTED AT [facility] [address] [id number]) [facility], [facility] 30: Assurance Manager/Techni rose ID = [id number] for REY VALENTIN Lab Interpretation (test code = Abnormal 81464-3) [facility] [id number] 13:03:00 Test Item Value Reference Range Interpretation Comments POC-GLUCOSE METER 140 mg/dL 70-110 H : TESTED A T [facility] 6720 (BEAKER) (test code = [facility], 153) 52578: Assurance Manager/Techni rose ID = [id number] for AARON COTTRELL POCT-GLUCOSE [id number] 09:15:00 Test Item Value Reference Range Interpretation Comments POC-GLUCOSE METER 142 mg/dL 70-110 H : TESTED A T [facility] 6720 (BEAKER) (test code = [facility], [facility]8) 01853: Assurance Manager/Techni rose ID = [id number] for AARON COTTRELL POCT-GLUCOSE [id number] 20:56:00 Test Item Value Reference Range Interpretation Comments POC-GLUCOSE METER 134 mg/dL 70-110 H : TESTED A T [facility] 6720 (BEAKER) (test code = [facility], [facility]8) 70880: Assurance Manager/Techni rose ID = [id number] for MG LANZA POCT-GLUCOSE [id number] 16:46:00 Test Item Value Reference Range Interpretation Comments POC-GLUCOSE METER 91 mg/dL 70-110 : TESTED A T [facility] 6720 (BEAKER) (test code = [facility], [facility]8) 82569: Assurance Manager/Techni rose ID = [id number] for AARON CABRAL POCT-GLUCOSE [id number] 12:19:00 Test Item Value Reference Range Interpretation Comments POC-GLUCOSE METER 237 mg/dL 70-110 H : TESTED A T [facility] 6720 (BEAKER) (test code = [facility], [facility]) 38819: Assurance Manager/Techni rose ID = [id number] for AARON COTTRELL MR, EXTREMITY, LOWER, WITHOUT CONTRAST, [id number] 09:12:00FINAL REPORT MRI of the right and left hindfoot without intravenous contrast History: Osteomyelitis, diabetic foot Comparison: Radiograph dated July 21, 2019 Technique: Multiplanar multisequence MRI of the right and left hindfoot was performed without intravenous contrast using the hindfoot osteomyelitis protocol Findings: Right foot: Marked T1 and T2 hypointense soft tissue thickening is noted at the medial aspect of the right heel, likely to reflect scar tissue. There is also mild subcutaneous edema at the lateral aspect of the mid foot and forefoot, incompletely imaged. No discrete drainable fluid collection is identified. There is no marrow signal abnormality to suggest osteomyelitis. There is a small nonspecific joint effusion at the ankle and subtalar joint. Scattered degenerative changes are noted. There is marked fatty atrophy of the distal leg and foot musculature. Severe flexor hallucis longus tendinopathy. No tenosynovitis. Left foot: There is a large area ofsoft tissue defect and granulation tissue at the posteromedial aspect of the heel, reaching the calcaneus, but there is no drainable fluid collection. Deformity is noted in the hindfoot, and the forefoot appears adducted. No acute fracture. No marrow signal abnormality is identified to indicate acute osteomyelitis. There is no significant joint effusion. There is severe atrophy of the foot and distalleg musculature. No significant tenosynovitis identified. IMPRESSION: Granulation/scar tissue at themedial aspect of the heel bilaterally. No MR evidence of osteomyelitis. Severe muscle atrophy. Signed: Carly Garzaort Verified Date/Time: 07/29/2019 09:12:01 Reading Location: [facility] C013X Ortho Consult Reading Room MR, EXTREMITY, LOWER, WITHOUT CONTRAST, [id number] 09:12:00FINAL REPORT MRI of the right and left hindfoot without intravenous contrast History: Osteomyelitis, diabetic foot Comparison: Radiograph dated July 21, 2019 Technique: Multiplanar multisequence MRI of the right and left hindfoot was performed without intravenous contrast using the hindfoot osteomyelitis protocol Findings: Right foot: Marked T1 and T2 hypointense soft tissue thickening is noted at the medial aspect of the right heel, likely to reflect scar tissue. There is also mild subcutaneous edema at the lateral aspect of the mid foot and forefoot, incompletely imaged. No discrete drainable fluid collection is identified. There is no marrow signal abnormality to suggest osteomyelitis. There is a small nonspecific joint effusion at the ankle and subtalar joint. Scattered degenerative changes are noted. There is marked fatty atrophy of the distal leg and foot musculature. Severe flexor hallucis longus tendinopathy. No tenosynovitis. Left foot: There is a large area ofsoft tissue defect and granulation tissue at the posteromedial aspect of the heel, reaching the calcaneus, but there is no drainable fluid collection. Deformity is noted in the hindfoot, and the forefoot appears adducted. No acute fracture. No marrow signal abnormality is identified to indicate acute osteomyelitis. There is no significant joint effusion. There is severe atrophy of the foot and distalleg musculature. No significant tenosynovitis identified. IMPRESSION: Granulation/scar tissue at themedial aspect of the heel bilaterally. No MR evidence of osteomyelitis. Severe muscle atrophy. Signed: Carly Garza MDReport Verified Date/Time: 07/29/2019 09:12:01 Reading Location: [facility] B1 C013X Ortho Consult Reading Room MR lower extremity without IV contrast right [id number] 09:12:00Interface, External Ris In - 07/29/2019 9:14 AM CSTFINAL REPORT MRI of the right and left hindfoot without intravenous contrast History: Osteomyelitis, diabetic foot Comparison:Radiograph dated July 21, 2019 Technique: Multiplanar multisequence MRI of the right and left hindfoot was performed without intravenous contrast using the hindfoot osteomyelitis protocol Findings: Right foot: Marked T1 and T2 hypointense soft tissue thickening is noted at the medial aspect of the right heel, likely to reflect scar tissue. There is also mild subcutaneous edema at the lateral aspectof the mid foot and forefoot, incompletely imaged. No discrete drainable fluid collection is identified. There is no marrow signal abnormality to suggest osteomyelitis. There is a small nonspecific joint effusion at the ankle and subtalar joint. Scattered degenerative changes are noted. There is marked fatty atrophy of the distal leg and foot musculature. Severe flexor hallucis longus tendinopathy. No tenosynovitis. Left foot: There is a large area of soft tissue defect and granulation tissue at theposteromedial aspect of the heel, reaching the calcaneus, but there is no drainable fluid collection. Deformity is noted in the hindfoot, and the forefoot appears adducted. No acute fracture. No marrowsignal abnormality is identified to indicate acute osteomyelitis. There is no significant joint effusion. There is severe atrophy of the foot and distal leg musculature. No significant tenosynovitis identified. IMPRESSION: Granulation/scar tissue at the medial aspect of the heel bilaterally. No MR evidence of osteomyelitis. Severe muscle atrophy. Signed: Carly Garza Verified Date/Time: 07/29/2019 09:12:01 Reading Location: [address] [facility]o Consult Reading [facility] left [id number] 09:12:00Interface, External Ris In - 07/29/2019 9:14 AM CSTFINAL REPORT MRI of the right and left hindfoot without intravenous contrast History: Osteomyelitis, diabetic foot Comparison:Radiograph dated July 21, 2019 Technique: Multiplanar multisequence MRI of the right and left hindfoot was performed without intravenous contrast using the hindfoot osteomyelitis protocol Findings: Right foot: Marked T1 and T2 hypointense soft tissue thickening is noted at the medial aspect of the right heel, likely to reflect scar tissue. There is also mild subcutaneous edema at the lateral aspectof the mid foot and forefoot, incompletely imaged. No discrete drainable fluid collection is identified. There is no marrow signal abnormality to suggest osteomyelitis. There is a small nonspecific joint effusion at the ankle and subtalar joint. Scattered degenerative changes are noted. There is marked fatty atrophy of the distal leg and foot musculature. Severe flexor hallucis longus tendinopathy. No tenosynovitis. Left foot: There is a large area of soft tissue defect and granulation tissue at theposteromedial aspect of the heel, reaching the calcaneus, but there is no drainable fluid collection. Deformity is noted in the hindfoot, and the forefoot appears adducted. No acute fracture. No marrowsignal abnormality is identified to indicate acute osteomyelitis. There is no significant joint effusion. There is severe atrophy of the foot and distal leg musculature. No significant tenosynovitis identified. IMPRESSION: Granulation/scar tissue at the medial aspect of the heel bilaterally. No MR evidence of osteomyelitis. Severe muscle atrophy. Signed: Carly Garza Verified Date/Time: 07/29/2019 09:12:01 Reading Location: [facility] C013X Ortho Consult Reading [facility] 2019-07-29 08:47:00 Test Item Value Reference Range Interpretation Comments POC-GLUCOSE METER 264 mg/dL 70-110 H : TESTED A T [facility] 6720 (FELICIANO) (test code = LIZBETH Petit [facility], 1538) 30[address]: Assurance Manager/Techni rose ID = [id number] for AARON COTTRELL Islet Cell AB [id number] 07:43:00 Test Item Value Reference Range Interpretation Comments Islet Cell Ab Profile Refer to individual (test code = 2556) Islet Cell Ab and/or Islet Cell Ab Titer results. [facility] [id number] 07:43:00 Test Item Value Reference Range Interpretation Comments ISLET CELL AB Refer to individual AUTOVERIFICATION (test Islet Cell Ab code = 2556) and/or Islet Cell Ab Titer results. POCT-GLUCOSE [id number] 21:27:00 Test Item Value Reference Range Interpretation Comments POC-GLUCOSE METER 130 mg/dL 70-110 H : TESTED A T [facility] 6720 (FELICIANO) (test code = ILZBETH Petit [facility] [place], 1538) 905[address]: Assurance Manager/Techni rose ID = [id number] for FERNIE APARICIO Islet Cell Ab [id number] 20:22:00 Test Item Value Reference Range Interpretation Comments Islet Cell NEGATIVE NEGATIVE This test was developed Ab (test and its analyti efrain code = performance 2310724) characteristics havebeen determined by [facility].It h as not been cleared or approved by FDA. This as say has been validatedp ursuant to the CLIA reg ulations and is used for clinical purposes. ARPITA (test Performing Lab code = ARPITA) EZ [facility] [address] [place] [address] Renée Drew MD, PhD, LUCIA [facility] [id number] 20:22:00 Test Item Value Reference Range Interpretation Comments Islet Cell TNP LESS THAN 1.25 Test Not Perf ormed. Ab Titer JDF units Screening test Negative (test code = or Not Detected . Titer 77623-2) notperformed. N OTE: End point titers ar e compared to a s abad international referencestanda rd and values are repo rted in JDF (Juvenile D iabetes Foundation) uni ts. ARPITA (test Performing Lab code = ARPITA) EZ [facility] [address] [place] [address] Renée Drew MD, PhD, LUCIA [facility] [id number] 15:11:00 Test Item Value Reference Range Interpretation Comments CRIS-65 <5 <5 IU/mL This test was performed (test code using the GAD65 FRANTZ = 3214) method which is standardizedaga inst the International r eference preparation 97/ 550. ARPITA (test Performing Lab code = ARPITA) EZ [facility] [address] [place] [address] Renée Drew MD, PhD, LUCIA [facility] [id number] 13:00:00 Test Item Value Reference Range Interpretation Comments Result (test code = No growth in 5 days 6463-4) [facility] [id number] 13:00:00 Test Item Value Reference Range Interpretation Comments CULTURE (BEAKER) (test No growth in 5 days code = 1095) BLOOD [id number] 13:00:00 Test Item Value Reference Range Interpretation Comments CULTURE (BEAKER) (test No growth in 5 days code = 1095) POCT-GLUCOSE [id number] 12:57:00 Test Item Value Reference Range Interpretation Comments POC-GLUCOSE METER 138 mg/dL 70-110 H : TESTED A T [facility] 6720 (BEAKER) (test code = [facility], 1538) 92269: Assurance Manager/Techni rose ID = [id number] for [place] LLIS, JUAN ANTONIO POCT-GLUCOSE [id number] 08:43:00 Test Item Value Reference Range Interpretation Comments POC-GLUCOSE METER 226 mg/dL 70-110 H : TESTED A T [facility] 6720 (BEAKER) (test code = [facility], 1538) 02740: Assurance Manager/Techni rose ID = [id number] for [place] LLIS, JUAN ANTONIO POCT-GLUCOSE [id number] 21:11:00 Test Item Value Reference Range Interpretation Comments POC-GLUCOSE METER 254 mg/dL 70-110 H : Notified RN/MD: ([facility]) (test code = TESTED AT [facility] 6720 1538) [facility], [address]: Assurance Manager/Techni rose ID = [id number] for FERNIE APARICIO POCT-GLUCOSE [id number] 21:02:00 Test Item Value Reference Range Interpretation Comments POC-GLUCOSE METER 177 mg/dL 70-110 H : TESTED A T [facility] 6720 ([facility]) (test code = [facility], 153) 58505: Assurance Manager/Techni rose ID = [id number] for [place] LLIS, JUAN ANTONIO POCT-GLUCOSE [id number] 12:31:00 Test Item Value Reference Range Interpretation Comments POC-GLUCOSE METER 215 mg/dL 70-110 H : TESTED A T [facility] 6720 ([facility]) (test code = [facility], 153) 70301: Assurance Manager/Techni rose ID = [id number] for [place] LLIS, JUAN ANTONIO WOUND CULTURE + GRAM [id number] 10:10:00 Test Item Value Reference Interpretation Comments Range CULTURE ([facility]) PROTEUS MIRABILIS A 1+ Pro teus (test code = 1095) mirabilis Amikacin (test code = S 1) Ampicillin + S Sulbactam (test code = 6) Aztreonam (test code S = 32) Cefepime (test code = S 51) Cefoxitin (test code R = 68) Ceftazidime (test S code = 27) Ceftriaxone (test S code = 52) Ertapenem (test code S = 38) Gentamicin (test code S = 18) Levofloxacin (test R code = 22) Meropenem (test code S = 34) Piperacillin + S Tazobactam (test code = 29) Tetracycline (test R code = 2) Tobramycin (test code S = 25) Trimethoprim + R Sulfamethoxazole (test code = 47) CULTURE (AKER) METHICILLIN A 1+ Methicil lake (test code = 1095) RESISTANT resistant STAPHYLOCOCCUS Staphylococcu s AUREUS aureus Clindamycin (test R code = 10) Erythromycin (test R code = 4) Linezolid (test code S = 40) Nitrofurantoin (test S code = 23) Oxacillin (test code R = 14) Rifampin (test code = S 43) Tetracycline (test S code = 2) Trimethoprim + S Sulfamethoxazole (test code = 47) Vancomycin (test code S = 13) CULTURE (BEAKER) ESCHERICHIA COLI A <1+ Esc herichia (test code = 1095) coliESBL Positive Amikacin (test code = S 1) Ampicillin + R Sulbactam (test code = 6) Aztreonam (test code R = 32) Cefepime (test code = R 51) Cefoxitin (test code R = 68) Ceftazidime (test R code = 27) Ceftriaxone (test R code = 52) Ertapenem (test code S = 38) Gentamicin (test code S = 18) Levofloxacin (test R code = 22) Meropenem (test code S = 34) Nitrofurantoin (test S code = 23) Piperacillin + R Tazobactam (test code = 29) Tetracycline (test S code = 2) Tobramycin (test code S = 25) Trimethoprim + R Sulfamethoxazole (test code = 47) CULTURE (BEAKER) A Beta-hemoly tic (test code = 1095) streptoco ccus group B, by serological grouping GRAM STAIN RESULT 3+ WBCs (BEAKER) (test code = 1123) GRAM STAIN RESULT 1+ gram negative (BEAKER) (test code = rods 999428) GRAM STAIN RESULT 2+ gram positive (BEAKER) (test code = rods 322002) GRAM STAIN RESULT <1+ gram negative (BEAKER) (test code = coccobacilli 358199) GRAM STAIN RESULT 2+ gram positive (BEAKER) (test code = cocci in pairs 129238) POCT-GLUCOSE [id number] 08:52:00 Test Item Value Reference Range Interpretation Comments POC-GLUCOSE METER 209 mg/dL 70-110 H : TESTED A T [facility] 6720 ([employer]) (test code = [facility] [employer] [facility], 1538) 8[address]69: Assurance Manager/Techni rose ID = [id number] for JUAN ANTONIO PORTER POCT-GLUCOSE [id number] 21:26:00 Test Item Value Reference Range Interpretation Comments POC-GLUCOSE METER 255 mg/dL 70-110 H : TESTED A T [facility] 6720 ([employer]) (test code = [facility], 1538) 70[address]: Assurance Manager/Techni rose ID = [id number] for MG LANZA POCT-GLUCOSE [id number] 17:34:00 Test Item Value Reference Range Interpretation Comments POC-GLUCOSE METER 227 mg/dL 70-110 H : TESTED A T [facility] 6720 (BEAKER) (test code = [facility], [facility]8) [address]: Assurance Manager/Techni rose ID = [id number] for CHAVEZ CIARA, LETI POCT-GLUCOSE [id number] 11:28:00 Test Item Value Reference Range Interpretation Comments POC-GLUCOSE METER 282 mg/dL 70-110 H : TESTED A T [facility] 6720 (BEAKER) (test code = [facility], [facility]8) [address]: Assurance Manager/Techni rose ID = [id number] for CHAVEZ NNY, LETI POCT-GLUCOSE [id number] 08:19:00 Test Item Value Reference Range Interpretation Comments POC-GLUCOSE METER 329 mg/dL 70-110 H : TESTED A T [facility] 6720 (BEAKER) (test code = [facility], [facility]8) 229[address]: Assurance Manager/Techni rose ID = [id number] for AARON COTTRELL POCT-GLUCOSE [id number] 21:32:00 Test Item Value Reference Range Interpretation Comments POC-GLUCOSE METER 275 mg/dL 70-110 H : TESTED A T [facility] 6720 (BEAKER) (test code = [facility], 1538) 695[address]: Assurance Manager/Techni rose ID = [id number] for MG LANZA POCT-GLUCOSE [id number] 17:47:00 Test Item Value Reference Range Interpretation Comments POC-GLUCOSE METER 304 mg/dL 70-110 H : TESTED A T [facility] 6720 (BEAKER) (test code = [facility], 1538) 088[address]: Assurance Manager/Techni rose ID = [id number] for MA RIN, ERIN URINE [id number] 15:21:00 Test Item Value Reference Range Interpretation Comments CULTURE (BEAKER) A >100,000 co l/mL (test code = 1095) Beta-hemo lytic streptococcus g roup B, by serologic al grouping CULTURE (BEAKER) PROTEUS A 80-89,000 c ol/mL (test code = 1095) MIRABILIS Proteus mirabilisESBL Positive Amikacin (test code = S 1) Ampicillin + R Sulbactam (test code = 6) Aztreonam (test code R = 32) Cefepime (test code = R 51) Cefoxitin (test code R = 68) Ceftazidime (test R code = 27) Ceftriaxone (test R code = 52) Ertapenem (test code S = 38) Gentamicin (test code R = 18) Levofloxacin (test R code = 22) Meropenem (test code S = 34) Nitrofurantoin (test R code = 23) Tetracycline (test R code = 2) Tobramycin (test code R = 25) POCT-GLUCOSE [id number] 12:16:00 Test Item Value Reference Range Interpretation Comments POC-GLUCOSE METER 337 mg/dL 70-110 H : TESTED A T [facility] 6720 (BEAKER) (test code = [facility] [place], 1538) [address]: Assurance Manager/Techni rose ID = [id number] for ERIN ARIZMENDI Basic Metabolic [id number] 10:39:00 Test Item Value Reference Range Interpretation Comments Sodium (test code = 134 meq/L 136-145 L 2951-2) Potassium (test code = 4.6 meq/L 3.5-5.1 2823-3) Chloride (test code = 105 meq/L 98-107 2075-0) CO2 (test code = 20 meq/L 22-29 L 2028-9) BUN (test code = 14 mg/dL 7-21 3094-0) Creatinine (test code 0.97 mg/dL 0.57-1.25 = 2160-0) Glucose (test code = 429 mg/dL 70-105 HH 2345-7) Calcium (test code = 8.9 mg/dL 8.4-10.2 94601-8) EGFR (test code = 107 mL/min/1.73 [place] [address]-6) NOT ACCURATE CREATININE CLEARANCE IN PREDICTING GLOMERULAR FILTRATION RATE . ESTIMATED GFR I S NOT APPLICABLE FOR DIALYSIS PATIENTS. ARPITA (test code = ARPITA) Assurance Manager ID - JANET Trujillo Lab Interpretation Abnormal (test code = 43172-4) [facility] [id number] 10:39:00 Test Item Value Reference Range Interpretation Comments SODIUM (BEAKER) 134 meq/L 136-145 L (test code = 381) POTASSIUM (BEAKER) 4.6 meq/L 3.5-5.1 (test code = 379) CHLORIDE (BEAKER) 105 meq/L 98-107 (test code = 382) CO2 (BEAKER) (test 20 meq/L 22-29 L code = 355) BLOOD UREA NITROGEN 14 mg/dL 7-21 (BEAKER) (test code = 354) CREATININE (BEAKER) 0.97 mg/dL 0.57-1.25 (test code = 358) GLUCOSE RANDOM 429 mg/dL 70-105 HH (BEAKER) (test code = 652) CALCIUM (BEAKER) 8.9 mg/dL 8.4-10.2 (test code = 697) EGFR (BEAKER) (test 107 mL/min/1.73 ESTIM ATED GFR IS code = 1092) sq m NOT ACCURATE CREATININE CLEARANCE IN PREDICTING GLOMERULAR FILTRATION RATE . ESTIMATED GFR I S NOT APPLICABLE FOR DIALYSIS PATIEN TS. Assurance Manager ID - JANET FPOCT-GLUCOSE [id number] 08:29:00 Test Item Value Reference Range Interpretation Comments POC-GLUCOSE METER 395 mg/dL 70-110 H : [facility] (test code = [facility] [place], 1538) [address]: Assurance Manager/Techni rose ID = [id number] for ERIN ARIZMENDI CBC with platelet count + automated [id number] 06:40:00 Test Item Value Reference Range Interpretation Comments WBC (test code = 6690-2) 7.2 3.5- 10.5 K/L RBC (test code = 789-8) 5.48 4.63- 6.08 M/L MCHC (test code = 786-4) 32.5 32.3- 36.5 GM/DL Hematocrit (test code = 4544-3) 46.4 % 40.1-51 MCV (test code = 787-2) 84.7 fL 79-92.2 MCH (test code = 785-6) 27.6 pg 25.7-32.2 RDW (test code = 788-0) 15.5 % 11.6-14.4 H Platelets (test code = 777-3) 315 150- 450 K/CU MM MPV (test code = 01513-7) 10.5 fL 9.4-12.4 nRBC (test code = 413) 0 0- 0 /100 WBC % Neutros (test code = 429) 62 % % Lymphs (test code = 430) 26 % % Monos (test code = 431) 9 % % Eos (test code = 432) 2 % % Baso (test code = 437) 0 % # Neutros (test code = 670) 4.48 1.78- 5.38 K/L # Lymphs (test code = 414) 1.87 1.32- 3.57 K/L # Monos (test code = 415) 0.62 0.30- 0.82 K/L # Eos (test code = 416) 0.17 0.04- 0.54 K/L # Baso (test code = 417) 0.03 0.01- 0.08 K/L Immature Granulocytes-Relative 1 % 0-1 (test code = 2801) Lab Interpretation (test code = Abnormal 05661-6) [facility] W/PLT COUNT & AUTO [id number] 06:40:00 Test Item Value Reference Range Interpretation Comments WHITE BLOOD CELL COUNT (BEAKER) 7.2 K/ L 3.5-10.5 (test code = 775) RED BLOOD CELL COUNT (BEAKER) 5.48 M/ L 4.63-6.08 (test code = 761) HEMOGLOBIN (BEAKER) (test code = 15.1 GM/DL 13.7-17.5 410) HEMATOCRIT (BEAKER) (test code = 46.4 % 40.1-51.0 411) MEAN CORPUSCULAR VOLUME (BEAKER) 84.7 fL 79.0-92.2 (test code = 753) MEAN CORPUSCULAR HEMOGLOBIN 27.6 pg 25.7-32.2 (BEAKER) (test code = 751) MEAN CORPUSCULAR HEMOGLOBIN CONC 32.5 GM/DL 32.3-36.5 (BEAKER) (test code = 752) RED CELL DISTRIBUTION WIDTH 15.5 % 11.6-14.4 H (BEAKER) (test code = 412) PLATELET COUNT (BEAKER) (test 315 K/CU MM 150-450 code = 756) MEAN PLATELET VOLUME (BEAKER) 10.5 fL 9.4-12.4 (test code = 754) NUCLEATED RED BLOOD CELLS 0 /100 WBC 0-0 (BEAKER) (test code = 413) NEUTROPHILS RELATIVE PERCENT 62 % (BEAKER) (test code = 429) LYMPHOCYTES RELATIVE PERCENT 26 % (BEAKER) (test code = 430) MONOCYTES RELATIVE PERCENT 9 % (BEAKER) (test code = 431) EOSINOPHILS RELATIVE PERCENT 2 % (BEAKER) (test code = 432) BASOPHILS RELATIVE PERCENT 0 % (BEAKER) (test code = 437) NEUTROPHILS ABSOLUTE COUNT 4.48 K/ L 1.78-5.38 (BEAKER) (test code = 670) LYMPHOCYTES ABSOLUTE COUNT 1.87 K/ L 1.32-3.57 (BEAKER) (test code = 414) MONOCYTES ABSOLUTE COUNT (BEAKER) 0.62 K/ L 0.30-0.82 (test code = 415) EOSINOPHILS ABSOLUTE COUNT 0.17 K/ L 0.04-0.54 (BEAKER) (test code = 416) BASOPHILS ABSOLUTE COUNT (BEAKER) 0.03 K/ L 0.01-0.08 (test code = 417) IMMATURE GRANULOCYTES-RELATIVE 1 % 0-1 PERCENT (BEAKER) (test code = 2801) POCT-GLUCOSE [id number] 19:55:00 Test Item Value Reference Range Interpretation Comments POC-GLUCOSE METER 369 mg/dL 70-110 H : TESTED A T [facility] 6720 (BEAKER) (test code = [facility], 153) 54782: Assurance Manager/Techni rose ID = [id number] for MG LANZA POCT-GLUCOSE [id number] 16:45:00 Test Item Value Reference Range Interpretation Comments POC-GLUCOSE METER 272 mg/dL 70-110 H : TESTED A T [facility] 6720 (BEAKER) (test code = [facility], 153) 69407: Assurance Manager/Techni rose ID = [id number] for FRIEDA PALOMINO POCT-GLUCOSE [id number] 11:40:00 Test Item Value Reference Range Interpretation Comments POC-GLUCOSE METER 277 mg/dL 70-110 H : TESTED A T [facility] 6720 (BEAKER) (test code = [facility], 1538) 428[address]: Assurance Manager/Techni rose ID = [id number] for FRIEDA PALOMINO BASIC METABOLIC [id number] 10:22:00 Test Item Value Reference Range Interpretation Comments SODIUM (BEAKER) 132 meq/L 136-145 L (test code = 381) POTASSIUM (BEAKER) 4.4 meq/L 3.5-5.1 (test code = 379) CHLORIDE (BEAKER) 103 meq/L 98-107 (test code = 382) CO2 (BEAKER) (test 21 meq/L 22-29 L code = 355) BLOOD UREA NITROGEN 14 mg/dL 7-21 (BEAKER) (test code = 354) CREATININE (BEAKER) 0.89 mg/dL 0.57-1.25 (test code = 358) GLUCOSE RANDOM 428 mg/dL 70-105 HH (BEAKER) (test code = 652) CALCIUM (BEAKER) 9.2 mg/dL 8.4-10.2 (test code = 697) EGFR (BEAKER) (test 119 mL/min/1.73 ESTIM ATED GFR IS code = 1092) sq m NOT ACCURATE CREATININE CLEARANCE IN PREDICTING GLOMERULAR FILTRATION RATE . ESTIMATED GFR I S NOT APPLICABLE FOR DIALYSIS PATIEN TS. Assurance Manager ID - NTPLipid [id number] 10:17:00 Test Item Value Reference Range Interpretation Comments Triglycerides (test 692 mg/dL code = 2571-8) Cholesterol (test code 196 mg/dL = 2093-3) HDL (test code = 24 mg/dL 5-9) ARPITA (test code = ARPITA) Calculated LDL not valid if triglyceride >400 mg/dLTriglyceride Reference Range: Low Risk <150 Borderline 150-199 High Risk 200-499 Very High Risk >=500 Cholesterol Reference Range: Low Risk <200 Borderline 200-239 High Risk >240 HDL Cholesterol Reference Range: Low Risk >=60 High Risk <40 LDL Cholesterol Reference Range: Optimal <100 Near Optimal 100-129 Borderline 130-159 High 160-189 Very High >=190 Assurance Manager ID - NTP [facility] CenterLIP[facility] [id number] 10:17:00 Test Item Value Reference Range Interpretation Comments TRIGLYCERIDES (BEAKER) (test code = 692 mg/dL 540) CHOLESTEROL (BEAKER) (test code = 196 mg/dL 631) HDL CHOLESTEROL (BEAKER) (test code 24 mg/dL = 976) Calculated LDL not valid if triglyceride >400 mg/dLTriglyceride Reference Range: Low Risk <150 Borderline 150-199 High Risk 200-499 Very High Risk >=500Cholesterol Reference Range: Low Risk <200 Borderline 200-239 High Risk >240HDL Cholesterol Reference Range: Low Risk >=60 High Risk <40LDL Cholesterol ReferenceRange: Optimal <100 Near Optimal 100-129 Borderline 130-159 High 160-189 Very High >=190 Assurance Manager ID - NTP POCT-GLUCOSE [id number] 08:28:00 Test Item Value Reference Range Interpretation Comments POC-GLUCOSE METER 388 mg/dL 70-110 H : TESTED A T [facility] 6720 (BEAKER) (test code = [facility] [place], 1538) [address]: Assurance Manager/Techni rose ID = [id number] for AARON COTTRELL Hemoglobin [id number] 07:54:00 Test Item Value Reference Range Interpretation Comments Hemoglobin A1C (test code = 4548-4) 10.4 % 4.3-6.1 H Lab Interpretation (test code = Abnormal 85106-5) [facility] [id number] 07:54:00 Test Item Value Reference Range Interpretation Comments HEMOGLOBIN A1C (BEAKER) (test code = 10.4 % 4.3-6.1 H 368) CBC W/PLT COUNT & AUTO [id number] 05:56:00 Test Item Value Reference Range Interpretation Comments WHITE BLOOD CELL COUNT (BEAKER) 6.5 K/ L 3.5-10.5 (test code = 775) RED BLOOD CELL COUNT (BEAKER) 5.21 M/ L 4.63-6.08 (test code = 761) HEMOGLOBIN (BEAKER) (test code = 14.6 GM/DL 13.7-17.5 410) HEMATOCRIT (BEAKER) (test code = 44.3 % 40.1-51.0 411) MEAN CORPUSCULAR VOLUME (BEAKER) 85.0 fL 79.0-92.2 (test code = 753) MEAN CORPUSCULAR HEMOGLOBIN 28.0 pg 25.7-32.2 (BEAKER) (test code = 751) MEAN CORPUSCULAR HEMOGLOBIN CONC 33.0 GM/DL 32.3-36.5 (BEAKER) (test code = 752) RED CELL DISTRIBUTION WIDTH 15.6 % 11.6-14.4 H (BEAKER) (test code = 412) PLATELET COUNT (BEAKER) (test 294 K/CU MM 150-450 code = 756) MEAN PLATELET VOLUME (BEAKER) 11.2 fL 9.4-12.4 (test code = 754) NUCLEATED RED BLOOD CELLS 0 /100 WBC 0-0 (BEAKER) (test code = 413) NEUTROPHILS RELATIVE PERCENT 56 % (BEAKER) (test code = 429) LYMPHOCYTES RELATIVE PERCENT 31 % (BEAKER) (test code = 430) MONOCYTES RELATIVE PERCENT 10 % (BEAKER) (test code = 431) EOSINOPHILS RELATIVE PERCENT 2 % (BEAKER) (test code = 432) BASOPHILS RELATIVE PERCENT 1 % (BEAKER) (test code = 437) NEUTROPHILS ABSOLUTE COUNT 3.66 K/ L 1.78-5.38 (BEAKER) (test code = 670) LYMPHOCYTES ABSOLUTE COUNT 2.03 K/ L 1.32-3.57 (BEAKER) (test code = 414) MONOCYTES ABSOLUTE COUNT (BEAKER) 0.63 K/ L 0.30-0.82 (test code = 415) EOSINOPHILS ABSOLUTE COUNT 0.15 K/ L 0.04-0.54 (BEAKER) (test code = 416) BASOPHILS ABSOLUTE COUNT (BEAKER) 0.03 K/ L 0.01-0.08 (test code = 417) IMMATURE GRANULOCYTES-RELATIVE 1 % 0-1 PERCENT (BEAKER) (test code = 2801) POCT-GLUCOSE [id number] 23:47:00 Test Item Value Reference Range Interpretation Comments POC-GLUCOSE METER 359 mg/dL 70-110 H : Notified RN/MD: ([facility]) (test code = TESTED AT [place] [address] 8199) [facility], [address]: Assurance Manager/Techni rose ID = [id number] for MICHELINE DOTY POCT-GLUCOSE [id number] 21:13:00 Test Item Value Reference Range Interpretation Comments POC-GLUCOSE METER 315 mg/dL 70-110 H : TESTED A T [place] [address] (FELICIANO) (test code = [facility], 1538) [address]: Assurance Manager/Techni rose ID = [id number] for Ana Porter POCT-GLUCOSE [id number] 21:13:00 Test Item Value Reference Range Interpretation Comments POC-GLUCOSE METER 331 mg/dL 70-110 H : TESTED A T [facility] 6720 (FELICIANO) (test code = [facility], 1538) [address]: Assurance Manager/Techni rose ID = [id number] for RO JERRICA MCCLAIN Arterial doppler legs [id number] 14:52:35Ejection FractionSLEH ECHO HEARTLAB MKCKESSON CPACSRight Impression1. The common femoral, profunda femoral, superficial femoral, popliteal,posterior tibial and anterior tibial arteries are patent with normaltriphasic Doppler waveforms.2. The peroneal artery is not visualized.3. The PT and DP SHYAM's arenot obtained due to non-Dopplerable signals,swelling and inability to position the legs.4. The greattoe pressure and TBI are not obtained due to size of the greattoe and swelling.5. The digits have adequate flow by PPG waveforms.Left Impression1. The common femoral, profunda femoral, superficial femoral, popliteal,posterior tibial and anterior tibial arteries are patent with normaltriphasic Doppler waveforms.2. The peroneal artery is not visualized.3. The PT and DP SHYAM's are not obtained due to non- Dopplerable signals,swelling and inability to position the legs.4. The great toe pressure and TBI are not obtained due to size of the greattoe and swelling.5. The digits have adequate flow by PPG waveforms. Conclusions Summary Arterial pressures and Doppler waveforms were performed bilaterally. Thearterial exam was technically difficult due to edema, body habitus and inability to position the legs, however, adequate Doppler waveforms were obtained. The right and left arterial systems were patentwith triphasic Doppler waveforms and no evidence of obstruction. The peroneal artery was not visualized, bilaterally. The right and left SHYAM's were not obtained due to non-Dopplerable signals, swellingand inability to position the legs. The toe [...] ! !PSV !EDV !Waveform ! + + +-- + + + + + + + !Mid Common Femoral ! !149 ! !Triphasic ! !176 ! !Triphasic ! + + + + + + + + + + !Prox PFA ! !69.2 ! !Triphasic ! !81.3 ! !Triphasic ! + + + + + + + + + + !Prox SFA ! !129 ! !Triphasic ! !130 ! !Triphasic ! +-------- + + + + + + + + + !Mid SFA ! !125 ! !Triphasic ! !89.8 ! !Triphasic ! + + + + + + + + + + !Dist SFA ! !96.6 ! !Triphasic ! !83.7 ! !Triphasic ! + + + + + + +------- + + + !Prox Popliteal ! !106 ! !Triphasic ! !96.6 ! !Triphasic ! + + + + + + + + + + !Dist Popliteal ! !81.9 ! !Triphasic ! !127 ! !Triphasic ! + + + + + + + + + + !Prox CLINICAL REGISTERED NURSE ! !93.5 ! !Triphasic ! !140 ! !Triphasic ! + + + + + + + + + + !Mid CLINICAL REGISTERED NURSE ! !83.1 ! !Triphasic ! !64.4 ! !Triphasic ! + + + + + + + + + + !Dist CLINICAL REGISTERED NURSE ! !130 ! !Triphasic ! !109 ! !Triphasic ! + + + + + + + + + + !Prox ROSAURA ! !125 ! !Triphasic ! !92.9 ! !Triphasic ! + + + + + + + + + + !Mid ROSAURA ! !144 ! !Triphasic! !61.1 ! !Triphasic ! + + + + + + +---- + + + !Dist ROSAURA ! + + Interface, External Ris In - 07/23/2019 2:52 PM [facility] LAB - Lower Extremity Arterial Duplex Demographics Patient Name KAREN NGUYEN Date of Study 07/23/2019 Age 34 Visit Number [id number] Gender Male Accession Number [id number] Date of 1985 Referring Alex Martin Room Number 2211 Physician Child Protective Services Social Worker Kody Trinh Interpreting Jackie Merida Christ Physician ProcedureType of Study: Extremities Arteries: Lower Extremities Arterial Duplex, ARTERIAL DOPPLER LEGS, BILATERAL. Indications for Study:Heel ulcer.P atient Status:Routine.Study Location:Vascular Lab.Technical Quality:Technically Difficult.Risk FactorsHistory of Disease+ + + --+!Diagnosis !Date !Comments !+ + +-- +!History/Risk !07/23/2019!Current smoker, Morbidly obese, Spina bifida, !!Factors: ! !Cerebral palsy, Pressure ulcer !+---- + + +Impressio nsRight Impression1.The common femoral, profunda femoral, superficial femoral, popliteal,posterior tibial and anterior tibial arteries are patent with normaltriphasic Doppler waveforms.2. The peroneal artery is not visualized.3. The PT and DP SHYAM's are not obtained due to non-Dopplerable signals,swelling and inability toposition the legs.4. The great toe pressure and TBI are not obtained due to size of the greattoe andswelling.5. The digits have adequate flow by PPG waveforms.Left Impression1. The common femoral, profunda femoral, superficial femoral, popliteal,posterior tibial and anterior tibial arteries are patent with normaltriphasic Doppler waveforms.2. The peroneal artery is not visualized.3. The PT and DP SHYAM's are not obtained due to non-Dopplerable signals,swelling and inability to position the legs.4. The great toe pressure and TBI are not obtained due to size of the greattoe and swelling.5. The digits have adequate flow by PPG waveforms. Conclusions Summary Arterial pressures and Doppler waveforms were performed bilaterally. The arterial exam was technically difficult due to edema, body habitus andinability to position the legs, however, adequate Doppler [...] in cm/s ; Diameters are measured in cmLE Duplex Measurements Right Left + + + + + + + + + + !Location ! !PSV !EDV !Waveform ! !PSV !EDV !Waveform ! + + + + + + + --------+ + + !Mid Common Femoral ! !149 ! !Triphasic ! !176 ! !Triphasic ! + + + + + + + + + + !Prox PFA ! !69.2 ! !Triphasic ! !81.3 ! !Triphasic ! + + +-- + + + + + + + !Prox SFA ! !129 ! !Triphasic ! !130 ! !Triphasic ! + + + + + + + + + + !Mid SFA ! !125 ! !Triphasic ! !89.8 ! !Triphasic ! + + + + + + + + + + !Dist SFA ! !96.6 ! !Triphasic ! !83.7 ! !Triphasic ! +-------- + + + + + + + + + !Prox Popliteal ! !106 ! !Triphasic ! !96.6 ! !Triphasic ! + + + + + + + + + + !Dist Popliteal ! !81.9 ! !Triphasic ! !127 ! !Triphasic ! + + + + + + +------- + + + !Prox CLINICAL REGISTERED NURSE ! !93.5 ! !Triphasic ! !140 ! !Triphasic ! + + + + + + + + + + !Mid CLINICAL REGISTERED NURSE ! !83.1 ! !Triphasic ! !64.4 ! !Triphasic ! + + + + + + + + + + !Dist CLINICAL REGISTERED NURSE ! !130 ! !Triphasic ! !109 ! [...] + + + !Dist ROSAURA ! + +[facility] Center[facility] [id number] 10:30:00 Test Item Value Reference Range Interpretation Comments POC-GLUCOSE METER 341 mg/dL 70-110 H : TESTED A T [facility] 6720 (BEAKER) (test code = [facility] [place], 1538) [address]: Assurance Manager/Techni rose ID = [id number] for Sm ith, Ana Manual [id number] 08:48:00 Test Item Value Reference Range Interpretation Comments % Neutros (manual) (test code = 69 % 1359) % Lymphs (manual) (test code = 1360) 25 % % Monos (manual) (test code = 1361) 3 % % Eos (manual) (test code = 1362) 3 % % Baso (manual) (test code = 1363) 0 % # Neutros (manual) (test code = 4.62 1.80- 8.00 K/L 1365) # Lymphs (manual) (test code = 1366) 1.68 1.48- 4.50 K/L # Monos (manual) (test code = 1367) 0.20 0.00- 1.30 K/L # Eos (manual) (test code = 1368) 0.20 0.00- 0.50 K/L # Baso (manual) (test code = 1369) 0.00 0.00- 0.20 K/L Total Counted (test code = 1351) 100 Platelet Morphology (test code = Normal 486) RBC Morphology (test code = 762) Normal Smudge Cells (test code = 1371) [facility]O [id number] 08:48:00 Test Item Value Reference Range Interpretation Comments WHITE BLOOD CELL COUNT (BEAKER) 6.7 K/ L 3.5-10.5 (test code = 775) RED BLOOD CELL COUNT (BEAKER) 5.28 M/ L 4.63-6.08 (test code = 761) HEMOGLOBIN (BEAKER) (test code = 14.6 GM/DL 13.7-17.5 410) HEMATOCRIT (BEAKER) (test code = 44.9 % 40.1-51.0 411) MEAN CORPUSCULAR VOLUME (BEAKER) 85.0 fL 79.0-92.2 (test code = 753) MEAN CORPUSCULAR HEMOGLOBIN 27.7 pg 25.7-32.2 (BEAKER) (test code = 751) MEAN CORPUSCULAR HEMOGLOBIN CONC 32.5 GM/DL 32.3-36.5 (BEAKER) (test code = 752) RED CELL DISTRIBUTION WIDTH 15.3 % 11.6-14.4 H (BEAKER) (test code = 412) PLATELET COUNT (BEAKER) (test 300 K/CU MM 150-450 code = 756) MEAN PLATELET VOLUME (BEAKER) 10.4 fL 9.4-12.4 (test code = 754) NUCLEATED RED BLOOD CELLS 0 /100 WBC 0-0 (BEAKER) (test code = 413) (MANUAL DIFFERENTIAL)2019-07-23 08:48:00 Test Item Value Reference Range Interpretation Comments NEUTROPHILS - REL (DIFF) (BEAKER) 69 % (test code = 1359) LYMPHOCYTES - REL (DIFF) (BEAKER) 25 % (test code = 1360) MONOCYTES - REL (DIFF) (BEAKER) 3 % (test code = 1361) EOSINOPHILS - REL (DIFF) (BEAKER) 3 % (test code = 1362) BASOPHILS - REL (DIFF) (BEAKER) 0 % (test code = 1363) NEUTROPHILS - ABS (DIFF) (BEAKER) 4.62 K/ L 1.80-8.00 (test code = 1365) LYMPHOCYTES - ABS (DIFF) (BEAKER) 1.68 K/ L 1.48-4.50 (test code = 1366) MONOCYTES - ABS (DIFF) (BEAKER) 0.20 K/ L 0.00-1.30 (test code = 1367) EOSINOPHILS - ABS (DIFF) (BEAKER) 0.20 K/ L 0.00-0.50 (test code = 1368) BASOPHILS - ABS (DIFF) (BEAKER) 0.00 K/ L 0.00-0.20 (test code = 1369) TOTAL COUNTED (BEAKER) (test code = 100 1351) PLT MORPHOLOGY (BEAKER) (test code Normal = 486) RBC MORPHOLOGY (BEAKER) (test code Normal = 762) SMUDGE CELLS (BEAKER) (test code = Present 1371) HEMOGLOBIN [id number] 06:39:00 Test Item Value Reference Range Interpretation Comments HEMOGLOBIN A1C (BEAKER) (test code = 10.5 % 4.3-6.1 H 368) LIPID [id number] 04:57:00 Test Item Value Reference Range Interpretation Comments TRIGLYCERIDES (BEAKER) 1251 mg/dL Speci men moderately (test code = 540) hemolyzed CHOLESTEROL (BEAKER) 215 mg/dL Specime n moderately (test code = 631) hemolyzed HDL CHOLESTEROL 22 mg/dL (BEAKER) (test code = 976) Calculated LDL not valid if triglyceride >400 mg/dLTriglyceride Reference Range: Low Risk <150 Borderline 150-199 High Risk 200-499 Very High Risk >=500Cholesterol Reference Range: Low Risk <200 Borderline 200-239 High Risk >240HDL Cholesterol Reference Range: Low Risk >=60 High Risk <40LDL Cholesterol ReferenceRange: Optimal <100 Near Optimal 100-129 Borderline 130-159 High 160-189 Very High >=190 Specimen moderately lipemicBASIC METABOLIC [id number] 04:56:00 Test Item Value Reference Range Interpretation Comments SODIUM (BEAKER) 137 meq/L 136-145 (test code = 381) POTASSIUM (BEAKER) 4.6 meq/L 3.5-5.1 Specimen moderately (test code = 379) hemolyzed CHLORIDE (BEAKER) 106 meq/L 98-107 (test code = 382) CO2 (BEAKER) (test 20 meq/L 22-29 L code = 355) BLOOD UREA NITROGEN 12 mg/dL 7-21 (BEAKER) (test code = 354) CREATININE (BEAKER) 0.95 mg/dL 0.57-1.25 Specimen moderately (test code = 358) hemolyzed GLUCOSE RANDOM 398 mg/dL 70-105 H (BEAKER) (test code = 652) CALCIUM (BEAKER) 8.8 mg/dL 8.4-10.2 (test code = 697) EGFR (BEAKER) (test 110 mL/min/1.73 ESTIM ATED GFR IS code = 1092) sq m NOT ACCURATE CREATININE CLEARANCE IN PREDICTING GLOMERULAR FILTRATION RATE . ESTIMATED GFR I S NOT APPLICABLE FOR DIALYSIS PATIEN TS. POCT-GLUCOSE [id number] 21:53:00 Test Item Value Reference Range Interpretation Comments POC-GLUCOSE METER > mg/dL 70-110 HH : Notified RN/MD: TESTED (FELICIANO) (test code = AT [facility] [address] [facility] [address]) [facility], [facility] 30: Assurance Manager/Techni rose ID = [id number] for DESIRAE MENDOZA U/S, ABDOMINAL, [id number] 19:54:00Reason for exam:->Evaluation of 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 shunt and for possible cyst or pseudocyst Should this be performed at the bedside?->YesFINAL REPORT Limited abdominal ultrasound. CLINICAL HISTORY: Evaluation of VPshunt for possible cyst or pseudocyst. COMPARISON STUDY: None available. FINDINGS: Sonographic assessment of the abdomen was performed assessing for fluid in the region of the patient's shunts. No fluid collections are seen. However, the study is limited by the patient's body habitus. CT scan would bemore sensitive. Signed: Solo Santoyo MDReport Verified Date/Time: 07/22/2019 19:54:10 Reading Location: [address] Consult Reading Room US abdomen [id number] 19:54:00Interface, External Ris In - 07/22/2019 7:57 PM CSTFINAL REPORT Limited abdom inal ultrasound. CLINICAL HISTORY: Evaluation of 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 shunt for possible cyst or pseudocyst. COMPARISON STUDY: None available. FINDINGS: Sonographic assessment of the abdomen was performed assessing for fluid in the region of the patient's shunts. No fluid collections are seen. However, the study is limited by the patient's body habitus. CT scan would be more sensitive. Signed: Solo Santoyo MDReportVerified Date/Time: 07/22/2019 19:54:10 Reading Location: [facility] C013W Consult Reading Room [facility] [id number] 19:34:00 Test Item Value Reference Range Interpretation Comments POC-GLUCOSE METER 474 mg/dL 70-110 HH : Notified RN/MD: (FELICIANO) (test code = TESTED AT [facility] 6721 7158) [facility], [address]: Assurance Manager/Techni rose ID = [id number] for MARILYNN MAO Urinalysis w/Microscopic + Reflex to [id number] 17:48:00 Test Item Value Reference Range Interpretation Comments Color, UA (test code = 5778-6) Yellow Clarity, UA (test code = 5767-9) Hazy Specific Hoffman, UA (test code = 1.020 1.001-1.035 5811-5) pH, UA (test code = 5803-2) 6.0 5.0-8.0 Protein, UA (test code = 17512-2) 20 mg/dL Negative A Glucose, UA (test code = 365) >1000 mg/dL Negative A Ketones, UA (test code = 2514-8) 40 mg/dL Negative A Bilirubin, UA (test code = Negative Negative 86782-4) Blood, UA (test code = 58675-7) Moderate Negative A Nitrite, UA (test code = 5802-4) Positive Negative A Leukocytes, UA (test code = Large Negative A 5799-2) Urobilinogen, UA (test code = 0.2 mg/dL 0.2-1 36031-7) RBC, UA (test code = 32913-4) 0 /HPF WBC, UA (test code = 5821-4) 267 /HPF Bacteria, UA (test code = Moderate 13779-8) Specimen Source (test code = 2795) Lab Interpretation (test code = Abnormal 72325-4) [facility] [id number] 17:48:00 Test Item Value Reference Range Interpretation Comments COLOR (BEAKER) (test code = 470) Yellow CLARITY (BEAKER) (test code = Hazy 469) SPECIFIC GRAVITY UA (BEAKER) 1.020 1.001-1.035 (test code = 468) PH UA (BEAKER) (test code = 467) 6.0 5.0-8.0 PROTEIN UA (BEAKER) (test code = 20 mg/dL Negative A 464) GLUCOSE UA (BEAKER) (test code = >1000 mg/dL Negative A 365) KETONES UA (BEAKER) (test code = 40 mg/dL Negative A 371) BILIRUBIN UA (BEAKER) (test code Negative Negative = 462) BLOOD UA (BEAKER) (test code = Moderate Negative A 461) NITRITE UA (BEAKER) (test code = Positive Negative A 465) LEUKOCYTE ESTERASE UA (BEAKER) Large Negative A (test code = 466) UROBILINOGEN UA (BEAKER) (test 0.2 mg/dL 0.2-1.0 code = 463) RBC UA (BEAKER) (test code = 519) 0 /HPF WBC UA (BEAKER) (test code = 520) 267 /HPF BACTERIA (BEAKER) (test code = Moderate 517) SOURCE(BEAKER) (test code = 2795) Manual [id number] 17:38:00 Test Item Value Reference Range Interpretation Comments % Neutros (test code = 63 % 2816) % Lymphs (test code = 23 % 2817) % Monos (test code = 6 % 2818) % Eos (test code = 2819) 5 % % Baso (test code = 2820) 1 % % Bands (test code = 2 % 0-10 2826) # Neutros (test code = 4.91 K/ul 1.78-5.38 2830) # Lymphs (test code = 1.79 K/ul 1.32-3.57 2831) # Monos (test code = 0.47 K/uL 0.3-0.82 2832) # Eos (test code = 2834) 0.39 K/uL 0.04-0.54 # Baso (test code = 2835) 0.08 K/uL 0.01-0.08 # Bands (test code = 0.16 K/uL 0-0.8 2840) Total Counted (test code 100 = 1351) Smudge Cells (test code = Present 1371) Giant Platelet (test code Present = 313) Anisocytosis (test code = 1+ few 961) Poikilocytes (test code = 2+ moderate 966) Spherocytes (test code = 1+ few 768) Ovalocytes (test code = 1+ few 477) Tear Drop Cells (test 1+ few code = 481) Artifact (test code = Present 3432) Platelet Conc (test code Adequate = 3438) ARPITA (test code = ARPITA) Received comment: User comments: Slide comments: [facility] W/PLT COUNT & AUTO [id number] 17:38:00 Test Item Value Reference Range Interpretation Comments WHITE BLOOD CELL COUNT (BEAKER) 7.8 K/ L 3.5-10.5 (test code = 775) RED BLOOD CELL COUNT (BEAKER) 5.12 M/ L 4.63-6.08 (test code = 761) HEMOGLOBIN (BEAKER) (test code = 14.7 GM/DL 13.7-17.5 410) HEMATOCRIT (BEAKER) (test code = 43.3 % 40.1-51.0 411) MEAN CORPUSCULAR VOLUME (BEAKER) 84.6 fL 79.0-92.2 (test code = 753) MEAN CORPUSCULAR HEMOGLOBIN 28.7 pg 25.7-32.2 (BEAKER) (test code = 751) MEAN CORPUSCULAR HEMOGLOBIN CONC 33.9 GM/DL 32.3-36.5 (BEAKER) (test code = 752) RED CELL DISTRIBUTION WIDTH 15.3 % 11.6-14.4 H (BEAKER) (test code = 412) PLATELET COUNT (BEAKER) (test 344 K/CU MM 150-450 code = 756) MEAN PLATELET VOLUME (BEAKER) 11.0 fL 9.4-12.4 (test code = 754) NUCLEATED RED BLOOD CELLS 0 /100 WBC 0-0 (BEAKER) (test code = 413) (CELLAVISION MANUAL DIFF)2019-07-22 17:38:00 Test Item Value Reference Range Interpretation Comments NEUTROPHILS - REL 63 % (CELLAVISION)(BEAKER) (test code = 2816) LYMPHOCYTES - REL 23 % (CELLAVISION)(BEAKER) (test code = 2817) MONOCYTES - REL 6 % (CELLAVISION)(BEAKER) (test code = 2818) EOSINOPHILS - REL 5 % (CELLAVISION)(BEAKER) (test code = 2819) BASOPHILS - REL 1 % (CELLAVISION)(BEAKER) (test code = 2820) BANDS - REL (CELLAVISION)(BEAKER) 2 % 0-10 (test code = 2826) NEUTROPHILS - ABS 4.91 K/ul 1.78-5.38 (CELLAVISION)(BEAKER) (test code = 2830) LYMPHOCYTES - ABS 1.79 K/ul 1.32-3.57 (CELLAVISION)(BEAKER) (test code = 2831) MONOCYTES - ABS 0.47 K/uL 0.30-0.82 (CELLAVISION)(BEAKER) (test code = 2832) EOSINOPHILS - ABS 0.39 K/uL 0.04-0.54 (CELLAVISION)(BEAKER) (test code = 2834) BASOPHILS - ABS 0.08 K/uL 0.01-0.08 (CELLAVISION)(BEAKER) (test code = 2835) BANDS - ABS (CELLAVISION)(BEAKER) 0.16 K/uL 0.00-0.80 (test code = 2840) TOTAL COUNTED (BEAKER) (test code 100 = 1351) SMUDGE CELLS (BEAKER) (test code Present = 1371) GIANT PLATELETS (BEAKER) (test Present code = 313) ANISOCYTOSIS (BEAKER) (test code 1+ few = 961) POIKILOCYTES (BEAKER) (test code 2+ moderate = 966) SPHEROCYTES (BEAKER) (test code = 1+ few 768) OVALOCYTES (BEAKER) (test code = 1+ few 477) TEAR DROP CELLS (BEAKER) (test 1+ few code = 481) ARTIFACT (CELLAVISION)(BEAKER) Present (test code = 3432) PLATELET CONCENTRATION Adequate (CELLAVISION)(BEAKER) (test code = 3438) Received comment: User comments: Slide comments:POCT-GLUCOSE [id number] 16:27:00 Test Item Value Reference Range Interpretation Comments POC-GLUCOSE METER 424 mg/dL 70-110 HH : Notified RN/MD: (FELICIANO) (test code = TESTED AT [facility] 6720 1538) [place], [address]: Assurance Manager/Techni rose ID = [id number] for [place] MARILYNN EPSTEIN CT, BRAIN, WITHOUT [id number] 15:31:00FINAL REPORT CT, BRAIN, WITHOUT CONTRAST CLINICAL INDICATION: Hydrocephalus C OMPARISON: None TECHNIQUE: Noncontrast axial CT imaging of the brain and skull. DOSE REDUCTION: Dose modulation, iterative reconstruction, and/or weight-based adjustment of the mA/kV was utilized to reduce the radiation dose to as low as reasonably achievable. FINDINGS:A total of two ventricular drainage catheters are present. A right transverse temporal catheter terminates across the midline just above the level of the foramen of Monro. A right parietal approach catheter terminates in the pineal region. Supratentorial ventricular configuration is slitlike. There is no herniation. The basilar cisterns are preserved. There is no identifiable recent infarct. 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 Calvarial configuration escape of cephalic. Thereis no acute osseous abnormality. IMPRESSION: Chronic, likely congenital parenchymal changes withoutrecent infarct or hemorrhage. A total of two ventricular drainage catheters are present. Supratentorial ventricular configuration is slitlike and may represent over shunting. Correlation recommended. Signed: JR Cali Robert [facility] Verified Date/Time: 07/22/2019 15:31:08 Reading Location: [facility] B1 C013V Neuro Reading Room CT brain without IV [id number] 15:31:00Interface, External Ris In - 07/22/2019 3:[address], BRAIN, WITHOUT CONTRAST CLINICAL INDICATION: Hydrocephalus COMPARISON: None TECHNIQUE: Noncontrast axial CTimaging of the brain and skull. DOSE REDUCTION: Dose modulation, iterative reconstruction, and/or weight-based adjustment of the mA/kV was utilized to reduce the radiation dose to as low as reasonablyachievable. FINDINGS:A total of two ventricular drainage catheters are present. A right transverse temporal catheter terminates across the midline just above the level of the foramen of Monro. A right parietal approach catheter terminates in the pineal region. Supratentorial ventricular configuration is slitlike. There is no herniation. The basilar cisterns are preserved. There is no identifiable recent infarct. 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 Calvarial configuration escape of cephalic. There is no acute osseous abnormality. IMPRESSION: Chronic, likely congenital parenchymal changes without recent infarct or hemorrhage. A total of two ventricular drainage catheters are present. Supratentorial ventricular configuration is slitlike and mayrepresent over shunting. Correlation recommended. Signed: JR Cali Robert MDReport VerifiedDate/Time: 07/22/2019 15:31:08 Reading Location: [address] Neuro Reading Room [facility] HospitalRAD, SHUNT [id number] 15:13:00Reason for exam:->concern for VPS malfunctionFINAL REPORT RAD, SHUNT SERIES INDICATION: concern for VPS malfunction COMPARISON: None TECHNIQUE: AP and lateral radiographs of the skull, abdomen and chest were acquired to evaluate shunt catheter FINDINGS:An abandoned shunt catheter is present within the right neck. Medial tothis a second shunt catheter is present which descends along the left chest wall, terminating withinthe mid pelvis. Radiopaque portions of the catheter appear contiguous. Signed: Raina Buchanan Verified Date/Time: 07/22/2019 15:13:54 Reading Location: [facility] Radiology Reading Room XR shunt [id number] 15:13:00Interface, External Ris In - 07/22/2019 3:16 PM CSTFINAL REPORT RAD, SHUNT SERIES INDICATION: concern for VPS malfunction COMPARISON: None TECHNIQUE: AP and lateral radiographs of the skull, abdomen and chest were acquired to evaluate shunt catheter FINDINGS:An abandoned shunt catheter is present within the right neck. Medial to this a second shunt catheter is present which descends along the left chest wall, terminating within the mid pelvis. Radiopaque portions of the catheter appear contiguous. Signed: Raina Buchananort Verified Date/Time: 07/22/2019 15:13:54 Reading Location: [facility] Radiology Reading Room [facility] HospitalPOCT[facility]UCOSE [id number] 11:38:00 Test Item Value Reference Range Interpretation Comments POC-GLUCOSE METER 394 mg/dL 70-110 H : TESTED A T [facility] 6720 [facility] (test code = [facility], 1538) [address]: Assurance Manager/Techni rose ID = [id number] for MARILYNN MAO HEMOGLOBIN [id number] 09:15:00 Test Item Value Reference Range Interpretation Comments [facility]IN A1C ([facility] (test code = 10.4 % 4.3-6.1 H 368) TSH/Free T4 If [id number] 07:54:00 Test Item Value Reference Range Interpretation Comments TSH (test code = 06683-1) 1.40 0.35- 4.94 uIU/mL Lab Interpretation (test code = Normal 41534-9) [facility] T4 IF [id number] 07:54:00 Test Item Value Reference Range Interpretation Comments THYROID STIMULATING HORMONE 1.40 uIU/mL 0.35-4.94 ([facility] (test code = 772) POCT-GLUCOSE [id number] 07:48:00 Test Item Value Reference Range Interpretation Comments POC-GLUCOSE METER > mg/dL 70-110 HH : Notified RN/MD: TESTED (BEAKER) (test code = AT [facility] 6720 [facility] 1538) [facility], [address]: Assurance Manager/Techni rose ID = [id number] for MARILYNN SMITH BASIC METABOLIC [id number] 07:44:00 Test Item Value Reference Range Interpretation Comments SODIUM (BEAKER) 134 meq/L 136-145 L (test code = 381) POTASSIUM (BEAKER) 4.4 meq/L 3.5-5.1 (test code = 379) CHLORIDE (BEAKER) 103 meq/L 98-107 (test code = 382) CO2 (BEAKER) (test 20 meq/L 22-29 L code = 355) BLOOD UREA NITROGEN 17 mg/dL 7-21 (BEAKER) (test code = 354) CREATININE (BEAKER) 1.09 mg/dL 0.57-1.25 (test code = 358) GLUCOSE RANDOM 464 mg/dL 70-105 HH (BEAKER) (test code = 652) CALCIUM (BEAKER) 8.6 mg/dL 8.4-10.2 (test code = 697) EGFR (BEAKER) (test 94 mL/min/1.73 ESTIMA LESTER GFR IS code = 1092) sq m NOT ACCURATE CREATININE CLEARANCE IN PREDICTING GLOMERULAR FILTRATION RATE . ESTIMATED GFR I S NOT APPLICABLE FOR DIALYSIS PATIEN TS. LIPID [id number] 07:34:00 Test Item Value Reference Range Interpretation Comments TRIGLYCERIDES (BEAKER) (test code = 750 mg/dL 540) CHOLESTEROL (BEAKER) (test code = 196 mg/dL 631) HDL CHOLESTEROL (BEAKER) (test code 22 mg/dL = 976) Calculated LDL not valid if triglyceride >400 mg/dLTriglyceride Reference Range: Low Risk <150 Borderline 150-199 High Risk 200-499 Very High Risk >=500Cholesterol Reference Range: Low Risk <200 Borderline 200-239 High Risk >240HDL Cholesterol Reference Range: Low Risk >=60 High Risk <40LDL Cholesterol ReferenceRange: Optimal <100 Near Optimal 100-129 Borderline 130-159 High 160-189 Very High >=190POCT-GLUCOSE METER 2019-07-22 00:49:00 Test Item Value Reference Range Interpretation Comments POC-GLUCOSE METER 399 mg/dL 70-110 H : TESTED A T [facility] 6720 (BEAKER) (test code = [place], 1538) [address]: Assurance Manager/Techni rose ID = [id number] for MATEUS ALEJANDROCHERYLE COYNE LIGIA, FOOT, 2 VIEWS, [id number] 22:28:00Reason for exam:->osteomyletitis FINAL REPORT TECHNIQUE: Two views each of the bilateral feet HISTORY: osteomyletitis. COMPARISON: None. IMPRESSION:No acute displaced fracture or dislocation. Joint spaces are within normal limits.Severe soft tissue swelling.On the right subcentimeter nonspecific calcifications adjacent to the heel plantar aspect. Correlate with physical exam. Severely limited exam due to patient body habitus. No definite cortical irregularity.There is clinical concern for osteomyelitis, recommend MRI with contrast. Signed: Matias Salinasort Verified Date/Time: 07/21/2019 22:28:25 Reading Location: [address] Consult Reading Room RAD, FOOT, 2 VIEWS, [id number] 22:28:00Reason for exam:->osteomyletitsFINAL REPORT TECHNIQUE: Two views each of the bilateral feet HISTORY: osteomyletitis. COMPARISON: None. IMPRESSION:No acute displaced fracture or dislocation. Joint spaces are within normal limits.Severe soft tissue swelling.On the right subcentimeter nonspecific calcifications adjacent to the heel plantar aspect. Correlate with physical exam. Severely limited exam due to patient body habitus. No definite cortical irregularity.There is clinical concern for osteomyelitis, recommend MRI with contrast. Signed: Matias Salinas Verified Date/Time: 07/21/2019 22:28:25 Reading Location: [address] Consult Reading Room XR foot 2 views [id number] 22:28:00Interface, External Ris In - 07/21/2019 10:30 PM CSTFINAL REPORT TECHNIQUE: Two views each of the bilateral feet HISTORY: osteomyletitis. COMPARISON: None. IMPRESSION:No acute displaced fracture or dislocation. Joint spaces are within normal limits.Severe soft tissue swelling.Onthe right subcentimeter nonspecific calcifications adjacent to the heel plantar aspect. Correlate with physical exam. Severely limited exam due to patient body habitus. No definite cortical irregularity.There is clinical concern for osteomyelitis, recommend MRI with contrast. Signed: Matias Salinasort Verified Date/Time: 07/21/2019 22:28:25 Reading Location: [address] Consult Reading Room [facility] HospitalXR foot 2 views [id number] 22:28:00Interface, External Ris In - 07/21/2019 10:30 PM CSTFINAL REPORT TECHNIQUE: Two views each of the bilateral feet HISTORY: osteomyletitis. COMPARISON: None. IMPRESSION:No acute displaced fracture or dislocation. Joint spaces are within normal limits.Severe soft tissue swelling.Onthe right subcentimeter nonspecific calcifications adjacent to the heel plantar aspect. Correlate with physical exam. Severely limited exam due to patient body habitus. No definite cortical irregularity.There is clinical concern for osteomyelitis, recommend MRI with contrast. Signed: Matias Salinas MDReport Verified Date/Time: 07/21/2019 22:28:25 Reading Location: [address] Consult Reading Room [facility] HospitalPOCT-[facility]UCOSE [id number] 21:04:00 Test Item Value Reference Range Interpretation Comments POC-GLUCOSE METER 430 mg/dL 70-110 HH : Notified RN/MD: (FELICIANO) (test code = TESTED AT [facility] 6720 1538) [facility], [address]: Assurance Manager/Techni rose ID = [id number] for ALBERTO OLIVER ERTAPENEM:SUSC:PT:ISOLATE:ORDQN:[id number] 16:48:00Proteus mirabilisMemorial HermannURINE AND [id number] 16:48:00Negative (05/22/18 10:48 AM)[facility] [id number] 16:48:00Negative *NA*(05/22/18 10:48 AM)[facility] [id number] 16:48:00Negative *NA*(05/22/18 10:48 AM)[facility] [id number] 16:48:00Trace *ABN*(05/22/18 10:48 AM)[facility] [id number] 16:48:000.2[facility] STOOL 2018-05-22 16:48:00Large *ABN*(05/22/18 10:48 AM)[facility] STOOL 2018-05-22 16:48:00Negative (05/22/18 10:48 AM)[facility] STOOL 2018-05-22 16:48:00Negative (05/22/18 10:48 AM)[facility] STOOL 2018-05-22 16:48:00 Test Item Value Reference Range Interpretation Comments UA pH (test code = UA pH) 7.0 1 5.0-8.0 [facility] [id number] 16:48:00 Test Item Value Reference Range Interpretation Comments UA Spec Grav (test code = UA Spec 1.015 1 Grav) [facility] [id number] 16:48:00Yellow *NA*(05/22/18 10:48 AM) [facility] [id number] 16:48:00Clear (05/22/18 10:48 AM) [facility] [id number] 16:48:00None Seen (05/22/18 10:48 AM) [facility] [id number] 11:57:00Negative (05/22/18 5:57 AM) [facility] NykylswYGXCYXIWRJ3993-04-91 11:57:00 Test Item Value Reference Range Interpretation Comments PTT (test code = PTT) 33.4 s 22.9-35.8 Memorial LmgiwgiLHQUPIDXBB4318-36-89 11:57:00 Test Item Value Reference Range Interpretation Comments PT (test code = PT) 13.7 s 12.0-14.7 Memorial RcdfvyxBXRYRCHGFZ9469-09-91 11:57:00 Test Item Value Reference Range Interpretation Comments INR (test code = INR) 1.05 1 0.85-1.17 [facility] HermannCHEM [id number] 10:50:58985Jyqpwnwd HermannCHEM PANEL 2018-05-22 10:50:019.4[facility] HermannCHEM [id number] 10:50:0128[facility] HermannCHEM [id number] 10:50:0114[facility] HermannCHEM [id number] 10:50:0189[facility]annCHEM [id number] 10:50:00992Nhsqoesa [facility] CenterannCHEM [id number] 10:50:014.2MBaylor [facility] & [facility] CentennialannCHEM CAVHT4698-48-44 10:50:487[address] [facility]CHE[facility] [id number] 10:50:010.85[facility] HermannCHEM PANEL 2018-05-22 10:50:019.2MemMission [facility] Medical CenterEujfzpqLODWYFZKON1864-81-70 10:50:01 Test Item Value Reference Range Interpretation Comments ACT (TEG) Rapid (test code = ACT (TEG) 136 s 86-118 Rapid) [facility] CampusCjzlggbEMIAYQZRZT5242-79-17 10:50:01 Test Item Value Reference Range Interpretation Comments Split Point Rapid (test code = Split 0.6 min Point Rapid) [facility] CampusBogpuofHFDNEEWYAT1009-58-72 10:50:01 Test Item Value Reference Range Interpretation Comments R-time Rapid (test code = R-time 0.9 min 0.4-0.7 Rapid) [facility] CampusBkxtecyUYSPGEEQQT3932-38-91 10:50:01 Test Item Value Reference Range Interpretation Comments K-time Rapid (test code = K-time 1.4 min 0.6-2.3 Rapid) [facility] CampusXoramfiJYFIDNKAOD7409-84-14 10:50:01 Test Item Value Reference Range Interpretation Comments Angle Rapid (test code = Angle 71 degrees 64-80 Rapid) [facility] CampusHqkcliwLMBTVXZGSN0403-52-07 10:50:0112.7MenhriBaylor Scott & White [facility] Center – SunnyvaleHEMATOLOGY 2018-05-22 10:50:01 Test Item Value Reference Range Interpretation Comments Max Amplitude Rapid (test code = Max 72 mm 52-71 Amplitude Rapid) [facility] CampusWxueoawJOUAJINXTY0170-72-99 10:50:010.1MUvalde Memorial HospitalHEMATOLOGY 2018-05-22 10:50:57704CrtihrodEl Campo Memorial HospitalYmdqbmaXTJPQWLGAX9461-23-60 10:50:017.8MenhriBaylor Scott & White Medical Center – SunnyvaleDafmlsqMOTAKMROOF8410-21-46 10:50:01 Test Item Value Reference Range Interpretation Comments MCH (test code = MCH) 27.4 pg 27.0-31.0 [facility] CampusPzgucxxRDODEOCSRI9470-62-90 10:50:0180.7[facility] HermannHEMATOLOGY 2018-05-22 10:50:0134.0Memorial ZtsldcsQBLTNEKZHH5895-50-52 10:50:0118.9[facility] FirbrldREODZYARSR9544-16-11 10:50:0143.3Memorial JfbopcmKMEIKCTWYW0764-84-22 10:50:019.3Memorial PqvjozjLSITNJMSXY9885-89-91 10:50:0114.7[facility] Jason STCMCEYQOJ7605-65-79 10:50:015.36Memorial EfuibmbLACWXVXKEJ8510-57-34 10:50:01 0.2Memorial FvgkiyhTRDVHCKFEU5215-89-51 10:50:010.1[facility] HermannHEMATOLOGY 2018-05-22 10:50:011.8[facility]orial MeevubpUONHAQRIUW1026-82-75 10:50:010.9[facility]orial KykupxtXWERWFAPTH5510-37-54 10:50:016.3Memorial PcrshgdOGBIACJWUA1843-99-49 10:50:012.0Memorial JlghycbUTYLLDNYWU0828-75-81 10:50:0167.4[facility] Jason HDXNAEERCY8131-19-28 10:50:0119.9Memorial WxaceuqUEHOJSAUTG8633-12-23 10:50:01 1.0Memorial WtxfpwcNHEQHTSITU1450-35-26 10:50:019.7[facility] HermannCHEM PANEL 2017-11-19 05:42:00 Test Item Value Reference Range Interpretation Comments B/C Ratio (test code = B/C Ratio) 17 1 6-25 [facility] HermannCHEM [id number] 05:42:004.3[facility] HermannCHEM PANEL 2017-11-19 05:42:00 Test Item Value Reference Range Interpretation Comments A/G Ratio (test code = A/G Ratio) 0.7 1 0.7-1.6 [facility] HermannCHEM [id number] 05:42:0014.4[facility] HermannCHEM PANEL 2017-11-19 05:42:94493Kczppjeo HermannCHEM SCRMG5793-10-13 05:42:0076Mem[facility] HermannCHEM ZYIXH5548-21-74 05:42:0035Mem[facility] HermannCHEM BEMLW6224-52-38 05:42:002.8[facility] HermannCHEM IGSIZ3419-76-13 05:42:007.1[facility] HermannCHEM EPIZV4406-87-15 05:42:008.7[facility] HermannCHEM [id number] 05:42:0018 [facility] HermannCHEM ELKPO2553-40-50 05:42:000.3[facility] HermannCHEM PANEL 2017-11-19 05:42:004.4[facility] HermannCHEM CQJUA0296-09-08 05:42:07805Xqwuziun HermannCHEM ACFQB3708-89-65 05:42:0023Memorial HermannCHEM LUMKY9584-96-39 05:42:76556Nharyobf HermannCHEM FDKOW3391-74-65 05:42:001.01[facility] HermannCHEM BCVHY8493-05-79 05:42:0017Mem[facility] HermannCHEM VQSOG3862-50-07 05:42:40142 Memorial DxddyneKHROEAZJER2090-57-17 05:42:000.6[facility] HermannHEMATOLOGY 2017-11-19 05:42:004.8Memorial QnukiaeZSZEWBUJDH8456-20-48 05:42:000.7[facility]orial RecuzpmTBCLRRLRJX1081-31-42 05:42:001.9[facility] LddfildZDJDENZLJZ7302-48-16 05:42:009.4[facility] CmpgamoEMZSTINAPQ8555-81-94 05:42:000.2[facility] Jason MWMMNKIKRB0292-98-24 05:42:002.9[facility] WdcxqliLZICGADOSV1285-49-43 05:42:00 62.2[facility] MzrtianEFKBPZQTZX5495-50-56 05:42:0024.9[facility] HermannHEMATOLOGY 2017-11-19 05:42:00 Test Item Value Reference Range Interpretation Comments MCH (test code = MCH) 27.5 pg 27.0-31.0 [facility] NifvijePBBHGIKPMT7221-17-49 05:42:0085.3[facility]annHEMATOLOGY 2017-11-19 05:42:0043.9[facility] TisuhbcLDWZQNBYJF2048-24-98 05:42:0014.2[facility] YvyrvhfWLXJKWMKVJ9465-01-10 05:42:007.7[facility] WioayjyRNEPMCEHKS2385-35-01 05:42:005.15[facility] ZubkdhjIVZXJRJQWE2883-29-32 05:42:008.4[facility] KEICGFNNRL7482-35-48 05:42:0032.3[facility] EkjccncIKKTJUWEGO1355-04-97 05:42:00 17.3[facility] KyhildeVIYZPWOMIL8511-22-26 05:42:51617Mbuckzfq HermannCHEM PANEL 2017-11-18 09:36:004.4[facility] HermannCHEM JPMRZ2820-74-31 09:36:00 Test Item Value Reference Range Interpretation Comments A/G Ratio (test code = A/G Ratio) 0.6 1 0.7-1.6 [facility]annCHEM CSITZ6527-56-41 09:36:00 Test Item Value Reference Range Interpretation Comments B/C Ratio (test code = B/C Ratio) 17 1 6-25 [facility]annCHE[facility] ALXQT3945-20-43 09:36:0011.3[facility] HermannCHEM PANEL 2017-11-18 09:36:14522Jhndrbzn HermannCHEM VITWO4349-68-14 09:36:000.84[facility]annCHEM PQXMA4647-01-46 09:36:90681Stbxvvvz HermannCHEM ZJDCB4856-55-04 09:36:0099[facility]annCHEM EZHNM5466-79-17 09:36:0014[facility]annCHEM CLKYR7220-76-63 09:36:0079[facility]annCHEM PXGJL9366-45-15 09:36:000.3 [facility]annCHE[facility] XPFPU8777-82-74 09:36:0014[facility]annCHEM PANEL 2017-11-18 09:36:0043[facility]annCHEM LDEJG0420-17-81 09:36:007.1[facility]annCHEM PUYHQ0657-20-75 09:36:002.7[facility]annCHEM EMRWS9324-12-12 09:36:009.2[facility]annCHEM RYFQQ2390-98-34 09:36:0021[facility]annCHEM AJBNC0267-87-43 09:36:004.3[facility]annCHEM BFPYA1278-47-23 09:36:56668 [facility] DxewcouTOMCONCUSP2320-38-14 09:36:0032.5[facility]annHEMATOLOGY 2017-11-18 09:36:0017.5[facility] XsfimyhUJUIKHGLOY8487-95-51 09:36:00985Lozreptw IiljwrzQXINJXDDXB7344-76-65 09:36:008.5[facility] EguqmdiDHGOONDFKX4354-90-29 09:36:006.6[facility] XtoqkjiWUBNZCDSWK3651-74-41 09:36:005.17[facility] KPRGLBGFJL8608-70-76 09:36:0086.1[facility] MtkdzedRSGDTCCLWQ6611-35-20 09:36:00 44.5[facility] AsoidxcQBBQBWNFLB8012-96-19 09:36:00 Test Item Value Reference Range Interpretation Comments MCH (test code = MCH) 28.0 pg 27.0-31.0 [facility] DakkwquLPPYXUWUDJ8860-86-09 09:36:0014.5[facility]annHEMATOLOGY 2017-11-18 09:36:001.7[facility] TmbgtucNOALSQGSRF0561-06-71 09:36:000.7[facility] CheuskhLOAQLRFIJS8574-33-66 09:36:000.2[facility] QmcdgjgIQUCNRGSNB5907-28-78 09:36:0026.1[facility] XnjdsggPGVHLUZTFT5336-26-36 09:36:0059.3[facility] BDWOHVIQNB7769-38-89 09:36:000.8[facility] OgoxvtmWSZBMCCPLO6377-40-93 09:36:00 10.5[facility] EpbevqaXKAYZLFYEW4586-34-22 09:36:003.3[facility] HermannHEMATOLOGY 2017-11-18 09:36:003.9[facility] KkjrjrsWVSPXOTJHJ7511-52-23 21:02:009.1[facility] HermannCHEM FJZSS2203-36-49 07:07:0074[facility]annCHEM SPDJF2708-64-08 07:07:0012[facility]annCHEM VZBKI7042-99-04 07:07:000.75[facility]annCHEM XKEBH1713-26-47 07:07:87666Xfpsmfsi HermannCHEM HXQYX1741-71-18 07:07:002.9 [facility]annCHE[facility] YYDZC8460-91-02 07:07:004.4[facility] HermannCHEM PANEL 2017-11-17 07:07:00 Test Item Value Reference Range Interpretation Comments A/G Ratio (test code = A/G Ratio) 0.7 1 0.7-1.6 [facility]annCHE[facility] GWRYV2317-77-93 07:07:000.4[facility] HermannCHEM PANEL 2017-11-17 07:07:0071[facility]annCHEM HTGOU5964-31-76 07:07:0015[facility]annCHEM SCBME6046-79-68 07:07:0028[facility]annCHEM FSSMN3596-82-79 07:07:004.4[facility]annCHEM EVNNP5547-10-26 07:07:74543Xvjaoaxv HermannCHEM TQWAX8864-02-99 07:07:0025[facility]annCHEM UKBXF6644-89-08 07:07:55362 [facility]CHE[facility] SGCOL3464-22-19 07:07:00 Test Item Value Reference Range Interpretation Comments B/C Ratio (test code = B/C Ratio) 16 1 6-25 [facility]annCHE[facility] PHZYV1617-81-91 07:07:008.7[facility] HermannCHEM PANEL 2017-11-17 07:07:0012.4[facility]annCHEM DSYIG6302-26-98 07:07:007.3[facility] IfzmqqfAQZQQDXAPA8437-40-45 07:07:13989Ilopsmul ScbfqudIBLZMNVWTT1515-67-46 07:07:008.7[facility] FkxryxbBYRCKDYQXZ0631-36-91 07:07:006.9[facility] ZRWWWSGZBC7588-39-22 07:07:005.30[facility] TigwhuhWYSPEVWKCG4140-90-28 07:07:00 32.8[facility] XsjjclaVHBPJHVDNB4740-62-40 07:07:00 Test Item Value Reference Range Interpretation Comments MCH (test code = MCH) 27.9 pg 27.0-31.0 [facility] CpfolgvYUADGKZXHN3424-57-98 07:07:0014.8[facility]annHEMATOLOGY 2017-11-17 07:07:0085.0[facility] SodbwwcXPWQFRPQVA9548-92-74 07:07:0045.1[facility] DtnsxraYYBZZJXYKF3360-63-23 07:07:0017.5[facility] KwkfiwiOJUBTTMIJU1712-71-18 07:07:000.2[facility] DigjosyFCQRFEGITO1002-94-42 07:07:002.0[facility] TYVWUTWOEW4797-71-60 07:07:000.7[facility] WicyqaqMQNSTVNGNN8422-96-65 07:07:002.4 [facility] AqgjoaaYCKUFTIKFF6224-57-75 07:07:000.6[facility] HermannHEMATOLOGY 2017-11-17 07:07:004.0[facility] BnhfapuSNTXBWDGMB9880-75-26 07:07:0010.4[facility] CsucdvhUKIMPCUOWX0400-88-51 07:07:00Normal (11/17/17 2:07 AM)[facility] EIJIOXWNFD6575-58-52 07:07:0058.1[facility] FyleavvLGVCEYQPNI5962-06-24 07:07:00 Normal (11/17/17 2:07 AM)[facility] FupmohuYDLCKAUKXD8856-83-57 07:07:0028.5[facility] IacdnnsRGTVIPIEWO8150-91-62 16:07:000.1[facility] BymwvikJMHHUWVXDA8946-74-41 16:07:00Moderate *ABN*(11/16/17 11:07 AM)[facility] LmtpghhTBOKWYLTNA7790-41-60 06:43:0022.3[facility] HermannCHEM YOSOZ8369-66-56 11:45:002.3[facility] HermannCHEM RFIWC6564-16-86 11:45:003.5[facility] CkldqfyUDMZIJCYDL6639-47-92 11:45:00 Test Item Value Reference Range Interpretation Comments PT (test code = PT) 14.0 s 12.0-14.7 [facility] LpguxqxDDZOFWMTBJ4827-87-06 11:45:00 Test Item Value Reference Range Interpretation Comments PTT (test code = PTT) 37.6 s 22.9-35.8 [facility] OyesoskGNSXQEMBXC0150-73-62 11:45:00 Test Item Value Reference Range Interpretation Comments INR (test code = INR) 1.08 1 0.85-1.17 [facility] TtjhvswVCGZPUDBMV1640-52-86 11:45:0013.1[facility] HermannIMMUNOLOGY 2017-11-15 11:45:0025.2[facility] HermannCHEM OKEVJ9021-80-01 03:06:000.9[facility] FxldntaZYRDCDUERF2394-56-88 03:06:005[facility] AwneyjwIVHOHNBTGY8871-60-28 03:06:0015.8[facility] QwpkbugWMMTUYIIJX9831-94-85 00:44:00 Test Item Value Reference Range Interpretation Comments PT (test code = PT) 13.0 s 12.0-14.7 [facility] VckdwjeRXRPMAXOAS7483-04-76 00:44:00 Test Item Value Reference Range Interpretation Comments INR (test code = INR) 0.98 1 0.85-1.17 [facility] AaamyviVOMYHZRQDU7555-12-04 00:44:00 Test Item Value Reference Range Interpretation Comments PTT (test code = PTT) 33.2 s 22.9-35.8 [facility]annBLOOD BANK BKBRBDT6481-37-49 23:51:00Negative (11/14/17 6:51 PM) [facility] ZCJCI6450-39-87 23:35:000.2[facility]UR[facility] AND JQEQZ0494-71-87 23:35:00Negative (11/14/17 6:35 PM)[facility] STOOL 2017-11-14 23:35:00Negative (11/14/17 6:35 PM)[facility] STOOL 2017-11-14 23:35:00Negative *NA*(11/14/17 6:35 PM)[facility] STOOL 2017-11-14 23:35:00Negative *NA*(11/14/17 6:35 PM)[facility] ST[facility] 2017-11-14 23:35:00Trace *ABN*(11/14/17 6:35 PM)[facility] ST[facility]OL 2017-11-14 23:35:00Small *ABN*(11/14/17 6:35 PM)[facility] STOOL 2017-11-14 23:35:00 Test Item Value Reference Range Interpretation Comments UA Spec Grav (test code = UA Spec 1.020 1 Grav) [facility] [id number] 23:35:00 Test Item Value Reference Range Interpretation Comments UA pH (test code = UA pH) 6.0 1 5.0-8.0 [facility] CVXNI9818-41-11 23:35:00Yellow *NA*(11/14/17 6:35 PM) [facility] ZVBNB0298-61-15 23:35:00Trace *ABN*(11/14/17 6:35 PM) [facility] SGTOD3188-70-62 23:35:00Slight Cloudy (11/14/17 6:35 PM) [facility] RGWPY2505-23-94 23:35:000-2 (11/14/17 6:35 PM)[facility] VsqpmcyZQGIFWKKCR0259-69-25 23:20:000.1[facility] UxtgvzcOHTMURJLFF1299-90-36 23:20:00Normal (11/14/17 6:20 PM)[facility]annBLOOD ZECYAUU1659-03-90 16:22:00 Test Item Value Reference Range Interpretation Comments CULTURE (BEAKER) (test No growth in 5 days code = 1095) BLOOD GXRRZFO7720-60-37 16:22:00 Test Item Value Reference Range Interpretation Comments CULTURE (BEAKER) (test No growth in 5 days code = 1095) (MANUAL DIFFERENTIAL)2016-12-25 22:29:00 Test Item Value Reference Range Interpretation Comments TOTAL COUNTED (BEAKER) (test code = 1351) WBC MORPHOLOGY (BEAKER) (test code = Normal 487) PLT MORPHOLOGY (BEAKER) (test code = Normal 486) RBC MORPHOLOGY (BEAKER) (test code = Normal 762) CBC W/PLT COUNT & AUTO IZIMXKFWAURV4063-14-78 22:28:00 Test Item Value Reference Range Interpretation Comments WHITE BLOOD CELL COUNT (BEAKER) 7.3 K/ L 4.0-10.0 (test code = 775) RED BLOOD CELL COUNT (BEAKER) 5.09 M/ L 4.20-5.80 (test code = 761) HEMOGLOBIN (BEAKER) (test code = 13.0 GM/DL 13.0-16.8 410) HEMATOCRIT (BEAKER) (test code = 42.3 % 40.0-50.0 411) MEAN CORPUSCULAR VOLUME (BEAKER) 83.0 fL 82.0-98.0 (test code = 753) MEAN CORPUSCULAR HEMOGLOBIN 25.6 pg 27.0-33.0 L (BEAKER) (test code = 751) MEAN CORPUSCULAR HEMOGLOBIN CONC 30.8 GM/DL 32.0-36.0 L (BEAKER) (test code = 752) RED CELL DISTRIBUTION WIDTH 18.0 % 10.3-14.2 H (BEAKER) (test code = 412) PLATELET COUNT (BEAKER) (test 331 K/CU MM 150-430 code = 756) MEAN PLATELET VOLUME (BEAKER) 8.5 fL 6.5-10.5 (test code = 754) NUCLEATED RED BLOOD CELLS 0 /100 WBC 0-0 (BEAKER) (test code = 413) NEUTROPHILS RELATIVE PERCENT 65 % (BEAKER) (test code = 429) LYMPHOCYTES RELATIVE PERCENT 23 % (BEAKER) (test code = 430) MONOCYTES RELATIVE PERCENT 8 % (BEAKER) (test code = 431) EOSINOPHILS RELATIVE PERCENT 3 % (BEAKER) (test code = 432) BASOPHILS RELATIVE PERCENT 1 % (BEAKER) (test code = 437) NEUTROPHILS ABSOLUTE COUNT 4.75 K/ L 1.80-8.00 (BEAKER) (test code = 670) LYMPHOCYTES ABSOLUTE COUNT 1.68 K/ L 1.48-4.50 (BEAKER) (test code = 414) MONOCYTES ABSOLUTE COUNT (BEAKER) 0.55 K/ L 0.00-1.30 (test code = 415) EOSINOPHILS ABSOLUTE COUNT 0.24 K/ L 0.00-0.50 (BEAKER) (test code = 416) BASOPHILS ABSOLUTE COUNT (BEAKER) 0.05 K/ L 0.00-0.20 (test code = 417) 0.000.520.000.000.000.00BASIC METABOLIC [id number] 11:11:00 Test Item Value Reference Range Interpretation Comments SODIUM (BEAKER) 138 meq/L 136-145 (test code = 381) POTASSIUM (BEAKER) 4.0 meq/L 3.5-5.1 (test code = 379) CHLORIDE (BEAKER) 108 meq/L 98-107 H (test code = 382) CO2 (BEAKER) (test 23 meq/L 22-29 code = 355) BLOOD UREA NITROGEN 11 mg/dL 7-21 (BEAKER) (test code = 354) CREATININE (BEAKER) 0.74 mg/dL 0.57-1.25 (test code = 358) GLUCOSE RANDOM 124 mg/dL 70-105 H (BEAKER) (test code = 652) CALCIUM (BEAKER) 8.9 mg/dL 8.4-10.2 (test code = 697) EGFR (BEAKER) (test 150 mL/min/1.73 ESTIM ATED GFR IS code = 1092) sq m NOT ACCURATE CREATININE CLEARANCE IN PREDICTING GLOMERULAR FILTRATION RATE . ESTIMATED GFR I S NOT APPLICABLE FOR DIALYSIS PATIEN TS. URINE [id number] 09:56:00 Test Item Value Reference Range Interpretation Comments CULTURE (BEAKER) (test <10,000 col/mL skin code = 1095) marilee COMPREHENSIVE METABOLIC [id number] 08:49:00 Test Item Value Reference Range Interpretation Comments TOTAL PROTEIN 7.3 gm/dL 6.0-8.3 (BEAKER) (test code = 770) ALBUMIN (BEAKER) 3.3 g/dL 3.5-5.0 L (test code = 1145) ALKALINE PHOSPHATASE 89 U/L 40-150 (BEAKER) (test code = 346) BILIRUBIN TOTAL 1.4 mg/dL 0.2-1.2 H (BEAKER) (test code = 377) SODIUM (BEAKER) (test 137 meq/L 136-145 code = 381) POTASSIUM (BEAKER) 3.7 meq/L 3.5-5.1 (test code = 379) CHLORIDE (BEAKER) 108 meq/L 98-107 H (test code = 382) CO2 (BEAKER) (test 17 meq/L 22-29 L code = 355) BLOOD UREA NITROGEN 12 mg/dL 7-21 (BEAKER) (test code = 354) CREATININE (BEAKER) 0.78 mg/dL 0.57-1.25 (test code = 358) GLUCOSE RANDOM 119 mg/dL 70-105 H (BEAKER) (test code = 652) CALCIUM (BEAKER) 8.6 mg/dL 8.4-10.2 (test code = 697) AST (SGOT) (BEAKER) 13 U/L 5-34 (test code = 353) ALT (SGPT) (BEAKER) 28 U/L 6-55 (test code = 347) EGFR (BEAKER) (test 141 ESTIMATE D GFR IS code = 1092) mL/min/1.73 sq NOT ACCURA TE m CREATININE CLEARANCE IN PREDICTING GLOMERULAR FILTRATION RATE . ESTIMATED GFR I S NOT APPLICABLE FOR DIALYSIS PATIEN TS. CBC W/PLT COUNT & AUTO [id number] 08:46:00 Test Item Value Reference Range Interpretation Comments WHITE BLOOD CELL COUNT (BEAKER) 9.4 K/ L 4.0-10.0 (test code = 775) RED BLOOD CELL COUNT (BEAKER) 4.79 M/ L 4.20-5.80 (test code = 761) HEMOGLOBIN (BEAKER) (test code = 12.8 GM/DL 13.0-16.8 L 410) HEMATOCRIT (BEAKER) (test code = 40.0 % 40.0-50.0 411) MEAN CORPUSCULAR VOLUME (BEAKER) 83.4 fL 82.0-98.0 (test code = 753) MEAN CORPUSCULAR HEMOGLOBIN 26.7 pg 27.0-33.0 L (BEAKER) (test code = 751) MEAN CORPUSCULAR HEMOGLOBIN CONC 32.0 GM/DL 32.0-36.0 (BEAKER) (test code = 752) RED CELL DISTRIBUTION WIDTH 18.2 % 10.3-14.2 H (BEAKER) (test code = 412) PLATELET COUNT (BEAKER) (test 313 K/CU MM 150-430 code = 756) MEAN PLATELET VOLUME (BEAKER) 8.6 fL 6.5-10.5 (test code = 754) NUCLEATED RED BLOOD CELLS 0 /100 WBC 0-0 (BEAKER) (test code = 413) NEUTROPHILS RELATIVE PERCENT 70 % (BEAKER) (test code = 429) LYMPHOCYTES RELATIVE PERCENT 16 % (BEAKER) (test code = 430) MONOCYTES RELATIVE PERCENT 12 % (BEAKER) (test code = 431) EOSINOPHILS RELATIVE PERCENT 1 % (BEAKER) (test code = 432) BASOPHILS RELATIVE PERCENT 1 % (BEAKER) (test code = 437) NEUTROPHILS ABSOLUTE COUNT 6.54 K/ L 1.80-8.00 (BEAKER) (test code = 670) LYMPHOCYTES ABSOLUTE COUNT 1.50 K/ L 1.48-4.50 (BEAKER) (test code = 414) MONOCYTES ABSOLUTE COUNT (BEAKER) 1.13 K/ L 0.00-1.30 (test code = 415) EOSINOPHILS ABSOLUTE COUNT 0.13 K/ L 0.00-0.50 (BEAKER) (test code = 416) BASOPHILS ABSOLUTE COUNT (BEAKER) 0.06 K/ L 0.00-0.20 (test code = 417) 0.00URINALYSIS W/ [id number] 20:36:00 Test Item Value Reference Range Interpretation Comments COLOR (BEAKER) (test code = 470) Yellow CLARITY (BEAKER) (test code = 469) Hazy SPECIFIC GRAVITY UA (BEAKER) (test 1.012 1.001-1.035 code = 468) PH UA (BEAKER) (test code = 467) 5.5 5.0-8.0 PROTEIN UA (BEAKER) (test code = 100 mg/dL Negative A 464) GLUCOSE UA (BEAKER) (test code = Negative Negative 365) KETONES UA (BEAKER) (test code = Negative Negative 371) BILIRUBIN UA (BEAKER) (test code = Negative Negative 462) BLOOD UA (BEAKER) (test code = 461) Moderate Negative A NITRITE UA (BEAKER) (test code = Negative Negative 465) LEUKOCYTE ESTERASE UA (BEAKER) Large Negative A (test code = 466) UROBILINOGEN UA (BEAKER) (test code 3.0 mg/dL 0.2-1.0 H = 463) RBC UA (BEAKER) (test code = 519) 19 /HPF WBC UA (BEAKER) (test code = 520) 182 /HPF SOURCE(BEAKER) (test code = 2795) BASIC METABOLIC [id number] 17:00:00 Test Item Value Reference Range Interpretation Comments SODIUM (BEAKER) 140 meq/L 136-145 (test code = 381) POTASSIUM (BEAKER) 3.7 meq/L 3.5-5.1 (test code = 379) CHLORIDE (BEAKER) 112 meq/L 98-107 H (test code = 382) CO2 (BEAKER) (test 17 meq/L 22-29 L code = 355) BLOOD UREA NITROGEN 23 mg/dL 7-21 H (BEAKER) (test code = 354) CREATININE (BEAKER) 1.00 mg/dL 0.57-1.25 (test code = 358) GLUCOSE RANDOM 102 mg/dL 70-105 (BEAKER) (test code = 652) CALCIUM (BEAKER) 8.7 mg/dL 8.4-10.2 (test code = 697) EGFR (BEAKER) (test 106 mL/min/1.73 ESTIM ATED GFR IS code = 1092) sq m NOT ACCURATE CREATININE CLEARANCE IN PREDICTING GLOMERULAR FILTRATION RATE . ESTIMATED GFR I S NOT APPLICABLE FOR DIALYSIS PATIEN TS. Specimen slightly ictericCBC W/PLT COUNT & AUTO [id number] 12:18:00 Test Item Value Reference Range Interpretation Comments WHITE BLOOD CELL COUNT (BEAKER) 16.4 K/ L 4.0-10.0 H (test code = 775) RED BLOOD CELL COUNT (BEAKER) 5.22 M/ L 4.20-5.80 (test code = 761) HEMOGLOBIN (BEAKER) (test code = 14.4 GM/DL 13.0-16.8 410) HEMATOCRIT (BEAKER) (test code = 42.9 % 40.0-50.0 411) MEAN CORPUSCULAR VOLUME (BEAKER) 82.2 fL 82.0-98.0 (test code = 753) MEAN CORPUSCULAR HEMOGLOBIN 27.5 pg 27.0-33.0 (BEAKER) (test code = 751) MEAN CORPUSCULAR HEMOGLOBIN CONC 33.5 GM/DL 32.0-36.0 (BEAKER) (test code = 752) RED CELL DISTRIBUTION WIDTH 16.2 % 10.3-14.2 H (BEAKER) (test code = 412) PLATELET COUNT (BEAKER) (test 329 K/CU MM 150-430 code = 756) MEAN PLATELET VOLUME (BEAKER) 8.2 fL 6.5-10.5 (test code = 754) NUCLEATED RED BLOOD CELLS 0 /100 WBC 0-0 (BEAKER) (test code = 413) NEUTROPHILS RELATIVE PERCENT 83 % (BEAKER) (test code = 429) LYMPHOCYTES RELATIVE PERCENT 7 % (BEAKER) (test code = 430) MONOCYTES RELATIVE PERCENT 9 % (BEAKER) (test code = 431) EOSINOPHILS RELATIVE PERCENT 0 % (BEAKER) (test code = 432) BASOPHILS RELATIVE PERCENT 0 % (BEAKER) (test code = 437) NEUTROPHILS ABSOLUTE COUNT 1.62 K/ L 1.80-8.00 L (BEAKER) (test code = 670) LYMPHOCYTES ABSOLUTE COUNT 1.15 K/ L 1.48-4.50 L (BEAKER) (test code = 414) MONOCYTES ABSOLUTE COUNT (BEAKER) 1.56 K/ L 0.00-1.30 H (test code = 415) EOSINOPHILS ABSOLUTE COUNT 0.01 K/ L 0.00-0.50 (BEAKER) (test code = 416) BASOPHILS ABSOLUTE COUNT (BEAKER) 0.02 K/ L 0.00-0.20 (test code = 417) (MANUAL DIFFERENTIAL)2016-12-23 12:18:00 Test Item Value Reference Range Interpretation Comments TOTAL COUNTED (BEAKER) (test code = 1351) WBC MORPHOLOGY (BEAKER) (test code = Normal 487) PLT MORPHOLOGY (BEAKER) (test code = Normal 486) RBC MORPHOLOGY (BEAKER) (test code = Normal 762)
[2020-01-07 14:37] LABS: Absolute Lymphocytes (CBC) 1.9 K/uL (0.7-4.9); Basophils % 0.8 % (0-1.3); Hematocrit 50.2 % (39.6-49.0); Lymphocytes % 18.6 % (15.3-44.8); MPV 8.8 fL (7.6-11.3); RBC Red Blood Cell Count 6.05 M/uL (4.33-5.43)
--- NOTE | 2020-01-07 14:38 | RAD REPORT ---
EXAM DESCRIPTION: [place] Single View01/07/2020 2:15 pm CLINICAL HISTORY: Chest pain COMPARISON: 2018 FINDINGS: The lungs appear clear of acute infiltrate. The heart is normal size IMPRESSION: No acute abnormalities displayed
[2020-01-07 15:06] LABS: ALT/SGPT 112 U/L (12-78); AST/SGOT 29 U/L (15-37); Albumin 3.4 g/dL (3.4-5.0); Alkaline Phosphatase 119 U/L (45-117); BUN Blood Urea Nitrogen 20 mg/dL (7-18); Bicarbonate 31 mmol/L (21-32); Bilirubin Direct < 0.1 mg/dL (0-0.2); Bilirubin Total 0.3 mg/dL (0.2-1.0); Glucose Level 125 mg/dL (74-106); NT PRO-BNP 10 pg/mL (<125); Protein, Total 8.6 g/dL (6.4-8.2); Sodium Level 138 mmol/L (136-145); Troponin (Emerg Dept Use Only) < 0.02 ng/mL (0.0-0.045)
[2020-01-07] MEDS ORDERED: HYDROMORPHONE HCL 1 MG/ML INJ ONE (15:32)
--- NOTE | 2020-01-07 15:54 | ER ---
Nurse's Notes [facility] Name: Roland Feldman Jr Age: 34 yrs Sex: Male : 1985 Arrival Date: 01/07/2020 Time: 12:35 Bed 17 Private MD: Diagnosis: Chest pain, unspecified Presentation: 01/06 12:25 Chief complaint: EMS states: Chest pain that started at 5pm last night in the middle of ah his chest and radiates thru to the back, 01/21. Nonproductive cough 3-5 days and body aches today. 98.6, 96%, 150BGL per EMS. Coronavirus screen: Surgical mask placed on patient. Patient moved to private room, placed in contact and droplet isolation with eye protection until further assessment. Patient reports a cough. Patient denies shortness of breath or difficulty breathing. Patient denies measured and/or subjective temperature greater than 100.4F prior to today's visit. Patient denies travel on a cruise ship or to a country the [facility] currently lists as an affected area. Patient denies contact with known and/or suspected case of COVID-19. Ebola Screen: No symptoms or risks identified at this time. Initial Sepsis Screen: Does the patient meet any 2 criteria? No. Patient's initial sepsis screen is negative. Does the patient have a suspected source of infection? No. Patient's initial sepsis screen is negative. Risk Assessment: Do you want to hurt yourself or someone else? Patient reports no desire to harm self or others. Onset of symptoms was January 06, 2020 at 17:00. Care prior to arrival: Medication(s) given: ASA, 81 mg, x 4, Nitroglycerin, 0.4 mg SL x 1. 12:25 Method Of Arrival: EMS: [facility] 12:25 Acuity: YUKI 3 ah Historical: - Allergies: 13:42 Amoxicillin; 13:42 Bactrim; ah 13:42 Ciprofloxacin; ah 13:42 CLAVULANIC ACID; ah 13:42 Demerol; ah 13:42 Doxycycline; 13:42 Levofloxacin; 13:42 Morphine; 13:42 PENICILLINS; 13:42 Toradol; ah 13:42 TRIMETHOPRIM; ah 13:42 Vancomycin; ah 13:42 Zofran; - Home Meds: 13:42 Celexa 20 mg Oral tab 1 tab once daily [Active]; fentanyl 25 mcg/hr Topical pt72 1 ah patch every 72 hours [Active]; Pepcid 20 mg Oral tab 1 tab once daily [Active]; Percocet 10-325 mg Oral tab 1 tab every 6 hours [Active]; Reglan 10 mg Oral tab 1 tab once daily [Active]; Wellbutrin SR 150 mg Oral TbER 1 tab 2 times per day [Active]; - PMHx: 13:42 Asthma; Cerebral Palsy; cluster headaches; decubitus ulcers on feet; GERD; ah Hydrocephalus; Hypertension; spina bifida; - PSHx: 13:42 [employer]UDE [employer] 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 - Social history:: Smoking status: Patient reports the use of cigarette tobacco products, smokes one-half pack cigarettes per day. Screenin:43 Abuse screen: Denies threats or abuse. Nutritional screening: No deficits noted. ah Tuberculosis screening: No symptoms or risk factors identified. Fall Risk Secondary diagnosis (15 points) impaired mobility, IV access (20 points). Ambulatory Aid- Total Smith Fall Scale indicates Low Risk Score (25-44 pts). Side Rails Up X 2 Placed close to Nursing Station Frequent Obs/Assesments occuring As available Patient and Family Educated on Fall Prevention Program and strategies. Assessment: 13:00 General: Appears in no apparent distress. Behavior is calm, cooperative, appropriate ah for age. Pain: Complains of pain in xyphoid area and mid-sternal area Pain radiates to back Pain currently is 7 out of 10 on a pain scale. Quality of pain is described as aching, Pain began 1 day ago. Is continuous. Neuro: Level of Consciousness is awake, alert, obeys commands, Oriented to person, place, time, situation, Appropriate for age. 14:00 Reassessment: Patient and/or family updated on plan of care and expected duration. Pain ah level reassessed. Patient is alert, oriented x 3, equal unlabored respirations, skin warm/dry/pink. no needs voiced at this time. Vital Signs: 12:25 Pulse 103; Resp 18; Temp 98.4; Pulse Ox 98% on R/A; Weight 172.37 kg; Height 4 ft. 11 ah in. (149.86 cm); Pain 7/10; 13:00 BP 102 / 58; Pulse 100; Resp 12; Pulse Ox 98% ; ah 12:25 Body Mass Index 76.75 (172.37 kg, 149.86 cm) ED Course: 12:35 Patient arrived in ED. ph 12:43 Winsome Romo, RN is Primary Nurse. 12:48 Triage completed. 12:56 Sky Tran MD is Attending Physician. [facility] 14:02 Patient has correct armband on for positive identification. Bed in low position. Call light in reach. Side rails up X2. insole coverer on. Pulse ox on. NIBP on. 14:15 XRAY Chest (1 view) In Process Unspecified. EDNE 16:00 No provider procedures requiring assistance completed. IV discontinued, intact, bleeding controlled, No redness/swelling at site. Pressure dressing applied. Administered Medications: 15:35 Drug: Dilaudid 1 mg Route: IVP; Site: right forearm; ph 16:35 Follow up: Response: No adverse reaction Outcome: 15:53 Discharge ordered by . [facility] 16:20 Discharged to shelter. 16:20 Condition: good 16:20 Discharge instructions given to patient, Instructed on discharge instructions, follow up and referral plans. Demonstrated understanding of instructions, follow-up care. 17:21 Patient left the ED. ph Signatures: Dispatcher [employer] EDNE Cleopatra Cade RN RN Winsome Romo RN RN Sky Tran MD MD [facility] Corrections: (The following items were deleted from the chart) 13:40 12:25 Coronavirus screen: Patient reports a cough. Patient denies shortness of breath ah or difficulty breathing. Patient denies measured and/or subjective temperature greater than 100.4F prior to today's visit. Patient denies travel on a cruise ship or to a country the [facility] currently lists as an affected area. Patient denies contact with known and/or suspected case of COVID-19.
--- NOTE | 2020-01-07 15:54 | EDPHYS ---
Physician Documentation [facility] Name: Roland Feldman Jr Age: 34 yrs Sex: Male : 1985 Arrival Date: 01/07/2020 Time: 12:35 Bed 17 Private MD: ED Physician Sky Tran HPI: 01/06 13:42 This 34 yrs old Black Male presents to ER via EMS with complaints of Chest pain. [facility] 13:42 The patient or guardian reports chest pain that is located primarily in the substernal mh7 area. The pain radiates to back. Associated signs and symptoms: Pertinent positives: cough, Pertinent negatives: abdominal pain, diaphoresis, dizziness, headache, lower extremity pain, lower extremity swelling, lightheadedness, nausea, near syncope, palpitations, recent travel, shortness of breath, syncope, vomiting. The chest pain is described as sharp. Duration: The patient or guardian reports multiple episodes, that are intermittent, that wax and wane, with no pattern. Modifying factors: The symptoms are alleviated by remaining still, the symptoms are aggravated by movement. Severity of pain: At its worst the pain was moderate yesterday, in the emergency department the pain has improved moderately. Historical: - Allergies: 13:42 Amoxicillin; ah 13:42 Bactrim; ah 13:42 Ciprofloxacin; ah 13:42 CLAVULANIC ACID; ah 13:42 Demerol; ah 13:42 Doxycycline; ah 13:42 Levofloxacin; ah 13:42 Morphine; ah 13:42 PENICILLINS; ah 13:42 Toradol; ah 13:42 TRIMETHOPRIM; ah 13:42 Vancomycin; ah 13:42 Zofran; - Home Meds: 13:42 Celexa 20 mg Oral tab 1 tab once daily [Active]; fentanyl 25 mcg/hr Topical pt72 1 ah patch every 72 hours [Active]; Pepcid 20 mg Oral tab 1 tab once daily [Active]; Percocet 10-325 mg Oral tab 1 tab every 6 hours [Active]; Reglan 10 mg Oral tab 1 tab once daily [Active]; Wellbutrin SR 150 mg Oral TbER 1 tab 2 times per day [Active]; - PMHx: 13:42 Asthma; Cerebral Palsy; cluster headaches; decubitus ulcers on feet; GERD; ah Hydrocephalus; Hypertension; spina bifida; - PSHx: 13:42 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 - Social history:: Smoking status: Patient reports the use of cigarette tobacco products, smokes one-half pack cigarettes per day. ROS: 13:42 Constitutional: Negative for fever, chills, and weight loss, Eyes: Negative for injury, mh7 pain, redness, and discharge, ENT: Negative for injury, pain, and discharge, Neck: Negative for injury, pain, and swelling, Abdomen/GI: Negative for abdominal pain, nausea, vomiting, diarrhea, and constipation, Back: Negative for injury and pain, : Negative for injury, bleeding, discharge, and swelling, MS/Extremity: Negative for injury and deformity, Skin: Negative for injury, rash, and discoloration, Neuro: Negative for headache, weakness, numbness, tingling, and seizure, Psych: Negative for depression, anxiety, suicide ideation, homicidal ideation, and hallucinations, Allergy/Immunology: Negative for hives, rash, and allergies, Endocrine: Negative for neck swelling, polydipsia, polyuria, polyphagia, and marked weight changes, Hematologic/Lymphatic: Negative for swollen nodes, abnormal bleeding, and unusual bruising. Exam: 13:42 Constitutional: This is a well developed, well nourished patient who is awake, alert, mh7 and in no acute distress. Head/Face: Normocephalic, atraumatic. Neck: Trachea midline, no thyromegaly or masses palpated, and no cervical lymphadenopathy. Supple, full range of motion without nuchal rigidity, or vertebral point tenderness. No Meningismus. 13:42 Cardiovascular: Regular rate and rhythm with a normal S1 and S2. No gallops, murmurs, or rubs. Normal PMI, no JVD. No pulse deficits. Respiratory: Lungs have equal breath sounds bilaterally, clear to auscultation and percussion. No rales, rhonchi or wheezes noted. No increased work of breathing, no retractions or nasal flaring. Abdomen/GI: Soft, non-tender, with normal bowel sounds. No distension or tympany. No guarding or rebound. No evidence of tenderness throughout. Back: No spinal tenderness. No costovertebral tenderness. Full range of motion. Skin: Warm, dry with normal turgor. Normal color with no rashes, no lesions, and no evidence of cellulitis. MS/ Extremity: Pulses equal, no cyanosis. Neurovascular intact. Full, normal range of motion. Neuro: Awake and alert, GCS 15, oriented to person, place, time, and situation. Cranial nerves II-XII grossly intact. Motor strength 5/5 in all extremities. Sensory grossly intact. Cerebellar exam normal. Normal gait. Psych: Awake, alert, with orientation to person, place and time. Behavior, mood, and affect are within normal limits. 13:42 Chest/axilla: Inspection: normal, Palpation: tenderness, that is moderate, of the mid-sternal area, that totally reproduces the patient's complaints. 16:49 ECG was reviewed by the Attending Physician. [facility] Vital Signs: 12:25 Pulse 103; Resp 18; Temp 98.4; Pulse Ox 98% on R/A; Weight 172.37 kg; Height 4 ft. 11 ah in. (149.86 cm); Pain 7/10; 13:00 BP 102 / 58; Pulse 100; Resp 12; Pulse Ox 98% ; ah 12:25 Body Mass Index 76.75 (172.37 kg, 149.86 cm) ah MDM: 13:40 Patient medically screened. [facility] 15:50 Differential diagnosis: acute myocardial infarction, coronary artery disease chest wall [facility] pain, Cholelithiasis costochondritis, pneumonia, pneumothorax. HEART Score: History: Slightly Suspicious (0), ECG: Normal (0), Age: < or = 45 years (0), Risk Factors: 1 or 2 risk factors (1), [Hypertension] Troponin: < or = 1 x Normal Limit (0), Total Score = 1. Data reviewed: vital signs, nurses notes, old medical records, lab test result(s), cardiac enzymes, CBC, electrolytes, urinalysis, EKG, radiologic studies, plain films. Data interpreted: support service tech: rate is 88 beats/min, rhythm is normal sinus rhythm, regular, Interpretation: normal rate, normal rhythm, Pulse oximetry: on room air is 98 %. Interpretation: normal. Counseling: I had a detailed discussion with the patient and/or guardian regarding: the historical points, exam findings, and any diagnostic results supporting the discharge/admit diagnosis, lab results, radiology results, the need for outpatient follow up, to return to the emergency department if symptoms worsen or persist or if there are any questions or concerns that arise at home. 01/06 13:41 Order name: Basic Metabolic Panel; Complete Time: 15:18 [facility] 01/06 13:41 Order name: CBC with Diff; Complete Time: 15:18 [facility] 01/06 13:41 Order name: LFT's; Complete Time: 15:18 [facility] 01/06 13:41 Order name: Magnesium; Complete Time: 15:18 [facility] 01/06 13:41 Order name: NT PRO-BNP; Complete Time: 15:18 01/06 13:41 Order name: PT-INR; Complete Time: 15:18 [facility] 01/06 13:41 Order name: Troponin (emerg Dept Use Only); Complete Time: 15:18 01/06 13:41 Order name: XRAY Chest (1 view); Complete Time: 15:18 [facility] 01/06 13:41 Order name: EKG; Complete Time: 13:42 01/06 13:41 Order name: Cardiac monitoring; Complete Time: 14:02 01/06 13:41 Order name: EKG - Nurse/Tech; Complete Time: 14:02 01/06 13:41 Order name: IV Saline Lock; Complete Time: 14:01 [facility] 01/06 13:41 Order name: Labs collected and sent; Complete Time: 14:54 [facility] 01/06 13:41 Order name: O2 Per Protocol; Complete Time: 14:01 [facility] 01/06 13:41 Order name: O2 Sat Monitoring; Complete Time: 14:01 EC:49 Rate is 100 beats/min. Rhythm is regular. QRS [place] is Normal. LA interval is normal. 7 QRS interval is normal. QT interval is normal. No Q waves. T waves are Normal. No ST changes noted. Clinical impression: Normal ECG. Administered Medications: 15:35 Drug: Dilaudid 1 mg Route: IVP; Site: right forearm; ph 16:35 Follow up: Response: No adverse reaction ah Disposition: 01/07/20 15:53 Discharged to Home. Impression: Chest pain, unspecified. - Condition is Stable. - Discharge Instructions: Nonspecific Chest Pain, [id number]. - Medication Reconciliation Form, Thank You Letter, Antibiotic Education, Prescription Opioid Use form. - Follow up: Private Physician; When: 1 - 2 days; Reason: Worsening of condition, Recheck today's complaints, Re-evaluation by your physician. - Problem is an ongoing problem. - Symptoms have improved. Signatures: Dispatcher [employer] Cleopatra Anderson RN RN Winsome Rahman RN RN ah Holmes, Maurice, MD MD mh7 Corrections: (The following items were deleted from the chart) 17:21 15:53 01/07/2020 15:53 Discharged to Home. Impression: Chest pain, unspecified. ph Condition is Stable. Forms are Medication Reconciliation Form, Thank You Letter, Antibiotic Education, Prescription Opioid Use. Follow up: Private Physician; When: 1 - 2 days; Reason: Worsening of condition, Recheck today's complaints, Re-evaluation by your physician. Problem is an ongoing problem. Symptoms have improved. mh7
[2020-01-07 17:48] VITALS: TEMP 98.4; O2SAT 98
[2020-01-07 17:49] VITALS: BP 102/58
--- NOTE | 2020-01-08 06:49 | EKG ---
Test Date: 2020-01-07 Test Time: 12:42:39 Ratings Analyst: KADEEM MEASUREMENT RESULTS: Intervals: Rate: 100 ID: [id number] QRSD: 82 QT: 320 QTc: 412 Lenore: P: 63 ID: [id number] QRS: 74 T: 51 INTERPRETIVE STATEMENTS: Normal sinus rhythm Normal ECG Compared to ECG 10/09/2018 20:52:29 Sinus tachycardia no longer present Electronically Signed On 01-08-20 06:48:02 CDT by Justin Heredia
== END 2020-01-07 17:21 | disposition home or self-care (01) ==
LOC: ER 12:17
DX: R07.9 Chest pain, unspecified (principal); I10 Essential (primary) hypertension; G80.9 Cerebral palsy, unspecified; F17.210 Nicotine dependence, cigarettes, uncomplicated; Z88.1 Allergy status to other antibiotic agents; Z88.5 Allergy status to narcotic agent; Z88.0 Allergy status to penicillin; Z88.8 Allergy status to other drugs, medicaments and biological substances
CPT/HCPCS: 93005; 85025; 80048; 36415; 83735; 85610; 80076; 84484; 83880; 71045; 96374; 99284; J1170

== ENCOUNTER 2020-07-28 11:22 | Emergency (ER) | payer MEDICAID, OTHER ==
--- OUTSIDE RECORDS SUMMARY | 2020-07-28 11:34 | XMS REPORT | Clinical Summary ---
:1985 Author Organization [facility] Address [address] [place] [address] Care Team Providers Name Role Phone Sharpless [...] Description 07/21/2019 - Hospital Encounter General Internal [place], Hyper glycemia without ketosis; 07/30/2019 Medicine MD Marie Shunt malfunction, sequela; Norma, Type 2 diabetes mellitus with hyperglycemia, unspecified whether halfway insulin use ([facility]); MD Enio Diabetes mellitus, new onset ([facility]); Veronica Salinas, Type 2 diabete s mellitus treated with insulin ([facility]); Proteus infecti on; ESBL (extended spectrum beta-lactamase) producing bacteria infection; Polymicrobial b acterial infection; Pyelonephritis; Spina bifida of sacral region with hydrocephalus ([facility]); Decubitus ulcer of ankle, right, unstageable ([facility]); Pressure ulcer of right heel, stage 3 ([facility]); Pressure ulcer of left heel, stage 2 ([facility]); Eschar of heel after 07/28/2019 Social History Tobacco Use Types Packs/Day Years Used Date Current Every Day Smoker Cigarettes 0.5 Tobacco Cessation: Ready to Quit: No Sex Assigned at Date Recorded Not on file Last Filed Vital Signs Vital Sign Reading Time Taken Comments Blood Pressure 136/78 07/30/2019 12:58 PM [facility] Pulse 96 07/30/2019 12:58 PM [facility] Temperature 35.8 C (96.4 F) 07/30/2019 12:58 PM [facility] Respiratory Rate 18 07/30/2019 12:58 PM [facility] Oxygen Saturation 96% 07/30/2019 12:58 PM [facility] Inhaled Oxygen Concentration - - Weight - - Height - - Body Mass Index - - Plan of Treatment Health Maintenance Due Date Last Done Comments PNEUMOCOCCAL VACCINE 0-64 YRS (1 1991 of 1 - PPSV23) DIABETIC EYE EXAM 1995 DIABETIC FOOT EXAM 1995 URINE MICROALBUMIN 1995 HEMOGLOBIN A1C 10/23/2019 07/24/2019, 07/23/2019, 07/22/2019 INFLUENZA VACCINE (#1) 2020 LIPID PANEL 07/24/2022 07/24/2019, 07/23/2019, 07/22/2019, Additional history exists Procedures Procedure Name Priority Date/Time Associated Diagnosis Comme nts RHYTHM STRIP - SCAN 08/07/2019 2:11 PM [facility] RHYTHM STRIP - SCAN 07/31/2019 3:32 PM [facility] POCT-GLUCOSE METER Routine 07/30/2019 12:52 PM Re sults for this [facility] procedure are i n the results section. POCT-GLUCOSE METER Routine 07/30/2019 9:03 AM Re sults for this [facility] procedure are i n the results section. POCT-GLUCOSE METER Routine 07/29/2019 8:45 PM Re sults for this [facility] procedure are i n the results section. POCT-GLUCOSE METER Routine 07/29/2019 4:35 PM Re sults for this [facility] procedure are i n the results section. POCT-GLUCOSE METER Routine 07/29/2019 12:08 PM Re sults for this [facility] procedure are i n the results section. POCT-GLUCOSE METER Routine 07/29/2019 8:35 AM Re sults for this [facility] procedure are i n the results section. POCT-GLUCOSE METER Routine 07/28/2019 9:02 PM Re sults for this [facility] procedure are i n the results section. MR LOWER EXTREMITY Routine 07/28/2019 6:46 PM Re sults for this WITHOUT IV CONTRAST [facility] procedur e are in LEFT the results section. MR LOWER EXTREMITY Routine 07/28/2019 6:46 PM Re sults for this WITHOUT IV CONTRAST [facility] procedur e are in RIGHT the results section. POCT-GLUCOSE METER Routine 07/28/2019 12:42 PM Re sults for this [facility] procedure are i n the results section. POCT-GLUCOSE METER Routine 07/28/2019 8:24 AM Re sults for this [facility] procedure are i n the results section. after 07/28/2019 Results RHYTHM STRIP - SCAN (08/07/2019 2:11 PM [facility])Only the most recent of2 results within the time period is included. Narrative Performed At This result has an attachment that is no t available. POC-Glucose meter (07/30/2019 12:52 PM [facility])Only the most recent of9 results within the time period is included. POC-Glucose Meter 140 (H)Comment: : 70 - 110 mg/dL DEDE FRANCISCO TESTED AT [facility] [address] [facility] [place], [id number]: [employer]Technici an ID = [id number] for AARON VALENTIN Specimen Blood Performing Organization Address City/State/Zipcode Phone Number [facility] [id number] [address] CENTER MR lower extremity without IV contrast left side (07/28/2019 6:46 PM [facility]) Specimen Narrative Performed At FINAL REPORT [employer] MRI of the right and left hindfoot [...] Carly Garza MD Report Verified Date/Time: 07/29/2019 09:12:01 Reading Location: [facility] C013X Ortho Con sult Reading Room Procedure Note Interface, External Ris In - 07/29/2019 9:14 AM [facility] FINAL REPORT MRI of the right and [...] Verified Date/Time: 07/29/2019 0 9:12:01 Reading Location: [facility] B1 C013X Ortho Con sult Reading Room Performing Organization Address City/State/Zipcode Phone Number [facility] MR lower extremity without IV contrast right side (07/28/2019 6:46 PM [facility]) Specimen Narrative Performed At FINAL REPORT [facility] MRI of the right and left hindfoot [...] Carly Garza MD Report Verified Date/Time: 07/29/2019 09:12:01 Reading Location: [facility] C013X [facility] Reading Room Procedure Note Interface, External Ris In - 07/29/2019 9:14 AM [facility] FINAL REPORT MRI of the right and [...] Verified Date/Time: 07/29/2019 0 9:12:01 Reading Location: [facility] C013X [facility] Reading Room Performing Organization Address City/State/Zipcode Phone Number GE RIS after 07/28/2019 Additional Health Concerns Infection Onset Date Last Indicated Resolved Time MRSA (C) 07/26/2019 07/26/2019 Insurance Payer Benefit Plan Subscriber ID Effective Dates Phone Address Type / Group MEDICAID - [facility] COMM [id number] 2019-Reese merrill MEDICAID [place] STAR PLAN t [facility] Advance Directives For more information, please contact: [phone] Code Status Date Activated Date Inactivated Comments Full Code 07/21/2019 9:03 PM 07/30/2019 4:44 PM This code status was determined by: Patient Full Code 12/23/2016 1:36 AM 12/25/2016 8:43 PM This code status was determined by: Patient
--- OUTSIDE RECORDS SUMMARY | 2020-07-28 11:36 | XMS REPORT | Continuity of Care Document ---
:1985 Author Organization [employer] Care Team Providers Name Role Phone [facility] Unavailable Un available Problems Problem Status Onset Classification Date Comments Sourc e Date Reported Headache 05/22/20 12/09/[address] HEADACHE Active 05/22/[address] SHUNT MALFUNCTION Active 11/15/[address] ACUTE HEADACHE Active 11/15/[address] Acute pain Active Problem 03/06/2019 Mischer (finding) Neuro,[facility] Asthma (disorder) Resolved Problem 03/06/2019 M ischer Neuro,[facility] Bronchitis Resolved Problem 03/06/2019 Mischer (disorder) Neuro,[facility] Cerebral palsy Resolved Problem 03/06/2019 Misc her (disorder) Neuro,[facility] Headache Active Problem 03/06/2019 Mischer (finding) Neuro,[facility] Hydrocephalus Resolved Problem 03/06/2019 Misch er (disorder) Neuro,[facility] Osteomyelitis Resolved Problem 03/06/2019 Misch er (disorder) Neuro,[facility] Spina bifida, 12/09/2018 [facility] Nausea with 12/09/2018 Vinny mancilla vomiting, [facility] Diplopia 12/09/2018 [facility] Cerebral palsy, 12/09/2018 [facility] 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 Nicotine 12/09/2018 [facility] dependence, Medical cigarettes, Center uncomplicated Presence of 12/09/2018 Vinny s cerebrospinal Medica l fluid drainage Cente r device Allergy status to 12/09/2018 [facility] other antibiotic Med ical agents status Center Allergy status to 12/09/2018 [facility] other drugs, Medical medicaments and Cent er biological substances status Allergy status to 12/09/2018 [facility] narcotic agent Medic al status Center HEADACHE Active [facility] Medications Medication Details Route Status Patient Ordering Order Source Instructions Provider Date normal saline 1,000 mL, Rate: Inactive [facility] 0.9% IV 1,000 100 ml/hr, 2018 Medical mL Infuse over: 10 Center hr, Route: IV, Dosing Weight 131.818 kg, Total Volume: 1,000, Start date: 05/22/18 5:04:00 DIET KITCHEN COOK, Duration: 30 day, Stop date: 06/21/18 5:03:00 DIET KITCHEN COOK, 2.4, m2 Magnesium Notes: WASTE: Inactive [facility] s Sulfate F/P - Sink; E - 2018 [facility] Trash [place] Bin Isolyte S Notes: (Same Inactive [place] PH-7.4 (Bolus) as: Isolyte S 2017 Med ical IV PH 7.4) Center Phenergan 12.5 mg, 0.5 Inactive [place] mL, Route: 2018 Medical IVPB, Drug Center form: INJ, ONCE, Dosing Weight 131.818, kg, Priority: STAT, Start date: 05/22/18 4:35:00 DIET KITCHEN COOK, Stop date: 05/22/18 4:35:00 DIET KITCHEN COOK Docusate Sodium 100 mg = 1 cap, Active [place] 100 MG Oral PO, BID, 0 2018 Medical Capsule Refill(s) [place] Zosyn 0 Refill(s) Active [place] 2018 Medical [place] celecoxib 200 200 mg = 1 cap, Active [place] mg oral capsule PO, BID, 0 2018 Medic al Refill(s) [place] ascorbic acid 500 mg = 1 tab, Active [facility] PO, BID, 0 2018 Medical Refill(s) [place] acetaminophen 1,000 mg = 2 [place] 500 mg oral tab, PO, 2018 Medical tablet Q6Hnow, 0 Center Refill(s) Oxycodone 5 mg = 1 tab, Active [facility] Hydrochloride 5 PO, Q4H, PRN 2018 Med ical MG Oral Tablet Pain Score 4-6, C enter 0 Refill(s) zinc sulfate 220 mg = 1 cap, Active [place] 220 mg oral PO, Daily, 0 2018 Medical capsule Refill(s) [place] multivitamin 1 tab, PO, Active [facility] Daily, 0 2018 Medical Refill(s) Center methocarbamol [...] No Longer [place] as: Ativan) Active 2018 [facility] Center Trazodone Notes: (Same No Longer [place] [...] Same as [place]active [place] Dilaudid 2018 [facility] Center Tramadol Notes: Not to No Longer [...] Center Beneprotein 7 Notes: (Same No Longer [facility] gm pkt as: Active 2017 Medical Beneprotein) [place] Acetaminophen 1 tab, PO, TID, No Longer [place] 325 MG / 0 Refill(s) Active 2018 Medical Oxycodone [place] Hydrochloride 10 MG Oral Tablet [Percocet 10/325] Dilaudid 0.5 mg, 0.25 Inactive [place] mL, Route: IVP, 2017 Medical Drug form: INJ, Center ONCE, Start date: 11/15/17 11:01:00 CDT, Stop date: 11/15/17 11:01:00 CDT Phenergan Notes: (Same Inactive [facility] as: Phenergan) 2018 Medical Center Dilaudid 2 mg, Route: Inactive [place] IVP, [...] Take with food. Naproxen Notes: (Same Inactive [place] as: Naprosyn) 2018 Medical Take with food. Center Zosyn Notes: (Same No Longer [place] as: Zosyn) Active 2018 Medical Dosing based on Center Piperacillin component MEDICATION WASTE Product Size: 3375 mg Product Wasted: ___ mg Vancomycin 2001 mg: No Longer [place] infuse over 2.5 Active 2018 Medical hours For [place] adult patients only: Round to nearest 250 mg per Medical Staff approval MEDICATION WASTE Product Size: 1000 mg Product Wasted: ___ mg Enoxaparin Notes: (Same No Longer [place] as as: Lovenox) Active 2018 [facility] Sodium Chloride 1,000 mL, Rate: No [...] Posiflush) Center Acetaminophen Notes: Do not Inactive [place] exceed 4 2018 Medical gm/day. (Same Center as: Tylenol) Acetaminophen Notes: (Same Inactive [place] 325 MG / as: [place] 2018 Medical Hydrocodone 325/5) Do not Cente r Bitartrate 5 MG exceed 4gm/day Oral Tablet of acetaminophen. Reglan Notes: (Same Inactive [place] as: Reglan) 2018 [facility] Center Benadryl Notes: (Same Inactive [place] as: Benadryl) 2018 [facility] Magnesium Notes: WASTE: Inactive [place] Sulfate F/P - Sink; E - 2018 [facility] Municipal Trash Center Bin Sodium Chloride 1,000 mL, 1000 Inactive Radha 0.9% (Bolus) IV ml/hr, Infuse 2018 Nd dical Over: 1 hr, Center Route: IV, 1,000, Drug form: INJ, ONCE, Priority: STAT, Dosing Weight 127.273 kg, Start date: 11/14/17 23:26:00 CDT, Stop date: 11/14/17 23:26:00 CDT Zosyn 4.5 gm, Route: Inactive 11/15[facility] IVPB, ONCE, 2018 Medical Dosing Weight Center 127.273, kg, Priority: STAT, Start date: 11/14/17 23:10:00 CDT, Stop date: 11/14/17 23:10:00 CDT, ABX Indication: Bacteremia Vancomycin 2001 mg: Inactive [facility] infuse over 2.5 2018 Medical hours For Center adult patients only: Round to nearest 250 mg per Medical Staff approval MEDICATION WASTE Product Size: 1000 mg Product Wasted: ___ mg normal saline 1,000 mL, Rate: No Longer [facility] 0.9% IV 1,000 75 ml/hr, Active 2018 Medical mL Infuse over: Center 13.3 hr, Route: IV, Dosing Weight 127.273 kg, Total Volume: 1,000, Start date: 11/14/17 22:39:00 CDT, Duration: 30 day, Stop date: 12/14/17 22:38:00 CDT, 2.36, m2 Acetaminophen Notes: Max Inactive 11/15[facility] Tim as acetaminophen 2018 Medical 4000 mg/day (4 Center gm/day). (Same as: Tylenol Extra Strength) Rocephin Notes: (Same Inactive 11/15[facility] As: Rocephin). 2018 Medical MEDICATION Center WASTE Product Size: 1000 mg Product Wasted: _0__ mg Morphine 4 mg, Route: Inactive 11/15[facility] IVP, ONCE, 2018 Medical Dosing Weight Center 127.273, kg, Priority: STAT, Start date: 11/14/17 19:05:00 CDT, Stop date: 11/14/17 19:05:00 CDT Benadryl Notes: (Same Inactive 11/14[facility] as: Benadryl) 2018 Medical Center Benadryl Notes: (Same Inactive 11/14[facility] as: Benadryl) 2018 Medical Center Morphine 4 mg, 1 mL, Inactive 11/14/ [facility] [place] Route: IVP, 2018 Medical Drug form: GONZALO Saxena, Dosing Weight 127.273, kg, Priority: STAT, Start [...] ERTAPENEM:S Culture: >100,000 CFU/mL Proteus mirabilis 05/[address] [facility]:PT:ISOL Urine 10,000 - 50,000 CFU/mL Skin Kayla /2017 Medical ATE:ORDQN:M [place] IC ERTAPENEM:S Proteus Proteus 05/[address] [facility]:PT:ISOL mirabilis mirabilis /2017 Medical ATE:ORDQN:M Center IC URINE AND UA Nitrite Negative Negative 05/22 [facility] STOOL (05/22/18 10:48 AM) /2017 Medic al Center URINE AND UA Bili Negative Negative 05/22 [facility] STOOL *NA* /2017 Medical (05/22/18 10:48 AM) Cente r URINE AND UA Ketones Negative Negative 05/22 [facility] STOOL *NA* /2017 Medical (05/22/18 10:48 AM) Cente r URINE AND UA Blood Trace Negative 05/22 [facility] STOOL *ABN* /2017 Medical (05/22/18 10:48 AM) Cente r URINE AND UA 0.2 0.1 - 1.0 05/22 [facility] STOOL Urobilinogen /2017 [facility] Center URINE AND UA Leuk Est Large Negative 05/22 [facility] STOOL *ABN* /2017 Medical (05/22/18 10:48 AM) Cente r URINE AND UA Protein Negative Negative 05/22 [facility] STOOL (05/22/18 10:48 AM) /2017 Medic al Center URINE AND UA Glucose Negative Negative 05/22 [facility] STOOL (05/22/18 10:48 AM) /2018 [facility] URINE AND UA pH 7.0 5.0 - 8.0 05/22 [facility] URINE AND UA Spec Grav 1.015 <=1.030 05/22 [facility] URINE AND UA Color Yellow Yellow 05/22 [facility] STOOL *NA* /2017 Medical (05/22/18 10:48 AM) Cente r URINE AND UA Turbidity Clear Clear 05/22 [facility] (05/22/18 10:48 AM) [facility] URINE AND UA Mucus Few /LPF None Seen 05/22 [facility] /LPF /2017 [facility] URINE AND UA Bacteria Few /HPF None Seen 05[facility] URINE AND UA RBC 0-2 /HPF 0 - 2 05/22 [facility] URINE AND UA Sq Epi None Seen Few 05/22 [facility] (05/22/18 10:48 AM) [facility] URINE AND UA WBC 51-100 None Seen 05/22 [facility] /HPF /HPF [facility] BLOOD BANK Antibody Scrn Negative 05/22 Tim as RESULTS (05/22/18 5:57 AM) [facility] BLOOD BANK ABO/Rh AB POS 05/22 [facility] RESULTS /2017 [facility] HEMATOLOGY PTT 33.4 22.9 - 05/22 [place] 35.8 [facility] HEMATOLOGY PT 13.7 12.0 - 05/22 [facility] 14.7 [facility] HEMATOLOGY INR 1.05 0.85 - 05/22 [facility] 1.17 [facility] CHEM PANEL eGFR 133 05/22 Result [facility] Comment: The [facility] eGFR is Center calculated using the CKD-EPI [...] Calcium Lvl 9.4 8.5 - 10.5 05/22 [facility] CHEM PANEL CO2 28 24 - 32 05/22 [facility] CHEM PANEL BUN 14 7 - 22 05/22 [facility] CHEM PANEL Glucose Lvl 89 70 - 99 05/22 [facility] CHEM PANEL Chloride Lvl 104 95 - 109 05/22 a s [facility] CHEM PANEL Potassium Lvl 4.2 3.5 - 5.1 05/22 [place] [facility] CHEM PANEL Sodium Lvl 137 135 - 145 05/22 [facility] CHEM PANEL Creatinine 0.85 0.50 - 05/22 [facility] Lvl 1.40 [facility] CHEM PANEL AGAP 9.2 10.0 - 05/22 20.0 [facility] HEMATOLOGY ACT (TEG) 136 86 - 118 05/22 [facility] HEMATOLOGY [place] 0.6 05/22 [facility] HEMATOLOGY R-time Rapid 0.9 0.4 - 0.7 05/22 [facility] HEMATOLOGY K-time Rapid 1.4 0.6 - 2.3 05/22 [facility] HEMATOLOGY Angle Rapid 71 64 - 80 05/22 [facility] HEMATOLOGY G-value Rapid 12.7 5.0 - 11.6 05/22 [place] [facility] HEMATOLOGY Max Amplitude 72 52 - 71 05/22 [place] Rapid [facility] HEMATOLOGY Estimated % 0.1 0.0 - 7.5 05/22 [place] L[place] [facility] HEMATOLOGY Platelet 367 133 - 450 05/22 [facility] HEMATOLOGY MPV 7.8 7.4 - 10.4 05/22 [facility] HEMATOLOGY MCH 27.4 27.0 - 05/22 [place] 31.0 [facility] HEMATOLOGY MCV 80.7 80.0 - 05/22 [place] 94.0 [facility] HEMATOLOGY MCHC 34.0 32.0 - 05/22 MH [place] 36.0 [facility] HEMATOLOGY RDW 18.9 11.5 - 11 [place] 14.5 [facility] HEMATOLOGY Hct 43.3 42.0 - 11 [place] 54.0 [facility] HEMATOLOGY WBC 9.3 3.7 - 10.4 05/22 [facility] HEMATOLOGY Hgb 14.7 14.0 - 05/22 18.0 [facility] HEMATOLOGY RBC 5.36 4.70 - 11 [place] 6.10 [facility] HEMATOLOGY Eosinophils # 0.2 0.0 - 0.5 11 [facility] HEMATOLOGY Basophils # 0.1 0.0 - 0.2 05/22 [facility] HEMATOLOGY Lymphocytes # 1.8 1.0 - 5.5 05/22 [facility] HEMATOLOGY Monocytes # 0.9 0.0 - 0.8 05/22 [facility] HEMATOLOGY Neutrophils # 6.3 1.5 - 8.1 05/22 [facility] HEMATOLOGY Eosinophils 2.0 0.0 - 4.0 05/22 [facility] HEMATOLOGY Segs 67.4 45.0 - 05/22 [place] 75.0 [facility] HEMATOLOGY Lymphocytes 19.9 20.0 - 05/22 [place] 40.0 [facility] HEMATOLOGY Basophils 1.0 0.0 - 1.0 05/22 [facility] HEMATOLOGY Monocytes 9.7 2.0 - 12.0 05/22 2017 [facility] CHEM PANEL B/C Ratio 17 6 - 25 11/19 [facility] CHEM PANEL Globulin 4.3 2.7 - 4.2 11/19 [facility] CHEM PANEL A/G Ratio 0.7 0.7 - 1.6 11/19 [facility] CHEM PANEL AGAP 14.4 10.0 - 11/19 [place] 20.0 [facility] CHEM PANEL eGFR 113 11/19 Result Comment: The Medical eGFR is Center [...] Alk Phos 76 39 - 136 05/ [address] CHEM PANEL ALT 35 0 - [address] CHEM PANEL Albumin Lvl 2.8 3.5 - 5.0 11/[address] CHEM PANEL Total Protein 7.1 6.4 - 8.4 11/[address] CHEM PANEL Calcium Lvl 8.7 8.5 - 10.5 / [address] CHEM PANEL AST 18 0 - 37 05/ [address] CHEM PANEL Bili Total 0.3 0.2 - 1.3 / [address] CHEM PANEL Potassium Lvl 4.4 3.5 - 5.1 / [address] CHEM PANEL Chloride Lvl 109 95 - 109 05/ [address] CHEM PANEL CO2 23 24 - 32 05/ [address] CHEM PANEL Glucose Lvl 114 70 - 99 05/ [address] CHEM PANEL Creatinine 1.01 0.50 - 05/ [facility] Lvl 1.40 /2017 [facility] CHEM PANEL BUN 17 7 - 22 05/ [address] CHEM PANEL Sodium Lvl 142 135 - 145 05/ [address] HEMATOLOGY Basophils 0.6 0.0 - 1.0 / [address] HEMATOLOGY Segs-Bands # 4.8 1.5 - 8.1 / [address] HEMATOLOGY Monocytes # 0.7 0.0 - 0.8 / [address] HEMATOLOGY Lymphocytes # 1.9 1.0 - 5.5 05 [facility] HEMATOLOGY Monocytes 9.4 2.0 - 12.0 11/19 [facility] HEMATOLOGY Eosinophils # 0.2 0.0 - 0.5 11/19 [facility] HEMATOLOGY Eosinophils 2.9 0.0 - 4.0 11/[place] /2017 [facility] HEMATOLOGY Segs 62.2 45.0 - 11/19 [place] 75.0 [facility] HEMATOLOGY Lymphocytes 24.9 20.0 - 11/19 [place] 40.0 /2017 [facility] HEMATOLOGY MCH 27.5 27.0 - 11/19 [place] 31.0 [facility] HEMATOLOGY MCV 85.3 80.0 - 11/19 [place] 94.0 [facility] HEMATOLOGY Hct 43.9 42.0 - 11/19 [place] 54.0 [facility] HEMATOLOGY Hgb 14.2 14.0 - 11/19 [place] 18.0 [facility] HEMATOLOGY WBC 7.7 3.7 - 10.4 11/19 [facility] HEMATOLOGY RBC 5.15 4.70 - 11/19 [place] 6.10 [facility] HEMATOLOGY MPV 8.4 7.4 - 10.4 11/19 [facility] HEMATOLOGY MCHC 32.3 32.0 - 11/19 [place] 36.0 [facility] HEMATOLOGY RDW 17.3 11.5 - 11/19 [place] 14.5 /2017 [facility] HEMATOLOGY Platelet 317 133 - 450 11/19 2017 [facility] CHEM PANEL Globulin 4.4 2.7 - 4.2 11/18 [facility] CHEM PANEL A/G Ratio 0.6 0.7 - 1.6 11/18 [facility] CHEM PANEL B/C Ratio 17 6 - 25 11/18 [facility] CHEM PANEL AGAP 11.3 10.0 - 11/18 [place] 20.0 [facility] CHEM PANEL eGFR 134 05/ [facility] Comment: The Medical eGFR is Center calculated [...] CHEM PANEL Creatinine 0.84 0.50 - 11/18 [facility] Lvl 1.40 [facility] CHEM PANEL Sodium Lvl 142 135 - 145 11/[address] CHEM PANEL Glucose Lvl 99 70 - 99 11/[address] CHEM PANEL BUN 14 7 - 22 11/[address] CHEM PANEL Alk Phos 79 39 - 136 11/[address] CHEM PANEL Bili Total 0.3 0.2 - 1.3 11/[address] CHEM PANEL AST 14 0 - 37 11/[address] CHEM PANEL ALT 43 0 - 65 11/[address] CHEM PANEL Total Protein 7.1 6.4 - 8.4 11/[address] CHEM PANEL Albumin Lvl 2.7 3.5 - 5.0 11/[address] CHEM PANEL Calcium Lvl 9.2 8.5 - 10.5 11/18 [facility] CHEM PANEL CO2 21 24 - 32 11/[address] CHEM PANEL Potassium Lvl 4.3 3.5 - 5.1 11/[address] CHEM PANEL Chloride Lvl 114 95 - 109 11/18 [facility] [place]2017 [facility] HEMATOLOGY MCHC 32.5 32.0 - 11/18 [facility] 36.0 [facility] HEMATOLOGY RDW 17.5 11.5 - 05/ [facility] 14.5 [facility] HEMATOLOGY Platelet 400 133 - 450 11/[address] HEMATOLOGY MPV 8.5 7.4 - 10.4 11/[address] HEMATOLOGY WBC 6.6 3.7 - 10.4 11/18 [facility] HEMATOLOGY RBC 5.17 4.70 - 11/18 [place] 6.10 [facility] HEMATOLOGY MCV 86.1 80.0 - 11/18 94.0 [facility] HEMATOLOGY Hct 44.5 42.0 - 11/18 [place] 54.0 [facility] HEMATOLOGY MCH 28.0 27.0 - 11/18 [place] 31.0 [facility] HEMATOLOGY Hgb 14.5 14.0 - 11/18 18.0 [facility] HEMATOLOGY Lymphocytes # 1.7 1.0 - 5.5 11/18 [facility] HEMATOLOGY Monocytes # 0.7 0.0 - 0.8 11/18 [facility] HEMATOLOGY Eosinophils # 0.2 0.0 - 0.5 11/18 [facility] HEMATOLOGY Lymphocytes 26.1 20.0 - 11/18 40.0 [facility] HEMATOLOGY Segs 59.3 45.0 - 11/18 75.0 [facility] HEMATOLOGY Basophils 0.8 0.0 - 1.0 11/18 [facility] HEMATOLOGY Monocytes 10.5 2.0 - 12.0 11/18 [facility] HEMATOLOGY Eosinophils 3.3 0.0 - 4.0 11/18 [facility] HEMATOLOGY Segs-Bands # 3.9 1.5 - 8.1 11/18 [facility] TOXICOLOGY Vanco Tr TND 15:30pm 11/17 [facility] TOXICOLOGY Vanco Tr 9.1 11/17 [facility] CHEM PANEL Glucose Lvl 74 70 - 99 11/17 [facility] CHEM PANEL BUN 12 7 - 22 11/17 [facility]2017 [facility] CHEM PANEL Creatinine 0.75 0.50 - 11/17 [facility] Lvl 1.40 [facility] CHEM PANEL eGFR 140 05 [facility] Comment: The Medical eGFR is Center calculated [...] Albumin Lvl 2.9 3.5 - 5.0 05/ [address] CHEM PANEL Globulin 4.4 2.7 - 4.2 11/[address] CHEM PANEL A/G Ratio 0.7 0.7 - 1.6 11/[address] CHEM PANEL Bili Total 0.4 0.2 - 1.3 11/[address] CHEM PANEL Alk Phos 71 39 - 136 05/ [address] CHEM PANEL AST 15 0 - 37 05/ [address] CHEM PANEL ALT 28 0 - 65 05/ [address] CHEM PANEL Potassium Lvl 4.4 3.5 - 5.1 11/[address] CHEM PANEL Sodium Lvl 147 135 - 145 05/ [address] CHEM PANEL CO2 25 24 - [address] CHEM PANEL Chloride Lvl 114 95 - [address] CHEM PANEL B/C Ratio 16 6 - 25 / [address] CHEM PANEL Calcium Lvl 8.7 8.5 - 10.5 / [address] CHEM PANEL AGAP 12.4 10.0 - 05/ [facility] 20.0 [facility] CHEM PANEL Total Protein 7.3 6.4 - 8.4 11/[address] HEMATOLOGY Platelet 345 133 - 450 05/ [address] HEMATOLOGY MPV 8.7 7.4 - 10.4 11/[address] HEMATOLOGY WBC 6.9 3.7 - 10.4 05 [facility] HEMATOLOGY RBC 5.30 4.70 - 05 [place] 6.10 Medical [place] HEMATOLOGY MCHC 32.8 32.0 - 05 [place] 36.0 [facility] HEMATOLOGY MCH 27.9 27.0 - 11/17 [place] 31.0 [facility] HEMATOLOGY Hgb 14.8 14.0 - 11/17 [place] 18.0 [facility] HEMATOLOGY MCV 85.0 80.0 - 11/17 [place] 94.0 [facility] HEMATOLOGY Hct 45.1 42.0 - 11/17 [place] 54.0 [facility] HEMATOLOGY RDW 17.5 11.5 - 05 [place] 14.5 [facility] HEMATOLOGY Eosinophils # 0.2 0.0 - 0.5 05 [facility] HEMATOLOGY Lymphocytes # 2.0 1.0 - 5.5 11/17 [facility] HEMATOLOGY Monocytes # 0.7 0.0 - 0.8 11/17 [facility] HEMATOLOGY Eosinophils 2.4 0.0 - 4.0 11/17 [facility] HEMATOLOGY Basophils 0.6 0.0 - 1.0 05 [facility] HEMATOLOGY Segs-Bands # 4.0 1.5 - 8.1 11/17 [facility] HEMATOLOGY Monocytes 10.4 2.0 - 12.0 11/17 [facility] HEMATOLOGY RBC Morph Normal 11/17 [facility] (11/17/17 2:07 AM) [facility] HEMATOLOGY Segs 58.1 45.0 - 11/17 [place] 75.0 [facility] HEMATOLOGY Plt Morph Normal 11/17 [facility] (11/17/17 2:07 AM) [facility] HEMATOLOGY Lymphocytes 28.5 20.0 - 05 [place] 40.0 [facility] HEMATOLOGY Basophils # 0.1 0.0 - 0.2 11/16 [facility] HEMATOLOGY Polychrom Moderate None Seen 11/16 [facility] *ABN* /2017 [facility] (11/16/17 11:07 AM) [place] TOXICOLOGY Vanco Tr TND * 05 [facility] TOXICOLOGY Vanco Tr 22.3 05 [facility] CHEM PANEL Magnesium Lvl 2.3 1.8 - 2.4 11/15 [place] /2017 [facility] CHEM PANEL Phosphorus 3.5 2.5 - 4.5 11/15 [facility] HEMATOLOGY PT 14.0 12.0 - 11/15 [place] 14.7 [facility] HEMATOLOGY PTT 37.6 22.9 - 11/15 [place] 35.8 [facility] HEMATOLOGY INR 1.08 0.85 - 11/15 [place] 1.17 [facility] IMMUNOLOGY C-REACTIVE 13.1 <=2.9 mg/L 11/15 [place] PROTEIN /2017 [facility] IMMUNOLOGY Prealbumin 25.2 18.0 - 11/15 [place] 45.0 [facility] CHEM PANEL Lactic Acid 0.9 0.5 - 2.2 11/15 [place] Lvl /2017 [facility] HEMATOLOGY Sed Rate 5 0 - 15 11/15 [facility] IMMUNOLOGY C-REACTIVE 15.8 <=2.9 mg/L 11/15 [facility] PROTEIN [facility] HEMATOLOGY PT 13.0 12.0 - 11/15 [place] 14.7 [facility] HEMATOLOGY INR 0.98 0.85 - 11/15 [place] 1.17 [facility] HEMATOLOGY PTT 33.2 22.9 - 11/15 [place] 35.8 [facility] BLOOD BANK Antibody Scrn Negative 11/14 [facility] as RESULTS (11/14/17 6:51 PM) /2017 [facility] BLOOD BANK ABO/Rh AB POS 11/14 [facility] RESULTS /2017 [facility] URINE AND UA 0.2 0.1 - 1.0 11/14 [facility] STOOL Urobilinogen /2017 [facility] URINE AND UA Nitrite Negative Negative 11/14 [facility] STOOL (11/14/17 6:35 PM) /2017 [facility] URINE AND UA Glucose Negative Negative 11/14 [facility] STOOL (11/14/17 6:35 PM) /2017 [facility] URINE AND UA Ketones Negative Negative 11/14 [facility] STOOL *NA* /2017 [facility] (11/14/17 6:35 PM) [place] URINE AND UA Bili Negative Negative 11/14 [facility] STOOL *NA* /2017 [facility] (11/14/17 6:35 PM) [place] URINE AND UA Blood Trace Negative 11/14 [facility] STOOL *ABN* /2017 [facility] (11/14/17 6:35 PM) [place] URINE AND UA Leuk Est Small Negative 11/14 [facility] *ABN* [facility] (11/14/17 6:35 PM) [place] URINE AND UA Spec Grav 1.020 <=1.030 11/14 [facility] /[address] [place] [address] URINE AND UA pH 6.0 5.0 - 8.0 11/[address] URINE AND UA Color Yellow Yellow 11/14 [facility] *NA* /2017 [facility] (11/14/17 6:35 PM) [place] URINE AND UA Protein Trace Negative 11/14 [facility] *ABN* [facility] (11/14/17 6:35 PM) [place] URINE AND UA Turbidity Slight Cloudy Clear 11/14 [facility] (11/14/17 6:35 PM) [facility] URINE AND UA Hyal Cast 0-2 0 - 2 11/14 [facility] (11/14/17 6:35 PM) [address] [place] [address] URINE AND UA Bacteria Occasional None Seen 11/[place] STOOL /HPF /HPF [facility] URINE AND UA RBC 11-20 /HPF 0 - 2 11/14 [facility] /[address] [place] [address] URINE AND UA Sq Epi Occasional Few /LPF 11/14 [facility] STOOL /LPF /2017 [facility] URINE AND UA WBC 51-100 None Seen 11/14 [facility] STOOL /HPF /HPF /[address] [place] [address] HEMATOLOGY Basophils # 0.1 0.0 - 0.2 11/14 [place] [facility] HEMATOLOGY Polychrom Slight 11/[address] HEMATOLOGY Plt Morph Normal 11/14 [facility] (11/14/17 6:20 PM) [address] Pathology Reports No Data Provided for This Section Diagnostic Reports Report Value Date Source Brain-Outside Consult EXAM: CT BRAIN WITHOUT CONTRAST -- OUT SIDE CONSULT 05/22/2018 [facility] CT DATE: 05/22/2018 4:49 AM DIET KITCHEN COOK Cent er INDICATION: ' - PAIN' COMPARISON: Noncontrast head CTs 11/14/2017, , 03/27/2013 TECHNIQUE: Noncontrast [facility] submitted for 2nd interpretation. 205 images. Imaging was performed at [facility] on 05/22/2018. IV contrast: None. FINDINGS: Overall [...] with the prelimi nary report by the residential appliance repair technician. Brain shunt series DX EXAM: SKULL 2 VIEWS 11/14/2017 [facility] EXAM: CHEST 2 VIEWS Center EXAM: ABDOMEN 2 VIEWS DATE: 11/14/2017 7:20 PM CDT INDICATION: Headache. - Please include Codman vi ew for shunt setting. COMPARISON: Brain shuntogram [...] CT EXAM: CT BRAIN WITHOUT CONTRAST 11/14/2017 [facility] DATE: 11/14/2017 627 PM CDT Center INDICATION: 32-year-old male patient with histor y of certified diabetes educator shunt malfunction COMPARISON: CT of the brain 07/30/2014, 03/27/2013 . TECHNIQUE: Axial CT images o f the brain were obtained. Sagittal and coronal reformats. IV contrast: None. FINDINGS: An orphaned right occipital approach FITNESS CONSULTANT shunt is present. Also present is a right frontal approach FITNESS CONSULTANT shunt with tip in the left lateral [...] DX EXAM: XR CHEST 1 VIEW 11/14/2017 [facility] edical DATE: 11/14/2017 6:12 PM CDT Cente [...] Date Comments Source Respitory Rate 16 05/22/2018 [facility] Systolic (mm Hg) 138 05/22/2018 [facility] Diastolic (mm Hg) 68 05/22/2018 [facility] Temperature Oral (F) 98.4 F 05/22/2018 [facility] Temperature Oral (F) 98.6 F 05/22/2018 [facility] Systolic (mm Hg) 134 05/22/2018 [facility] Diastolic (mm Hg) 67 05/22/2018 [facility] Respitory Rate 18 05/22/2018 [facility] Systolic (mm Hg) 131 05/22/2018 [facility] Diastolic (mm Hg) 62 05/22/2018 [facility] Respitory Rate 16 05/22/2018 [facility] BMI Calculated 58.7 05/22/2018 [facility] Height 149.86 cm 05/22/2018 [facility] Weight 131.818 05/22/2018 [facility] Heart Rate 74 05/22/2018 [facility] Temperature Oral (F) 97.9 F 05/22/2018 [facility] Temperature Oral (F) 97.2 F 11/19/2017 [facility] Systolic (mm Hg) 127 11/19/2017 [facility] Diastolic (mm Hg) 85 11/19/2017 [facility] Heart Rate 81 11/19/2017 [facility] Respitory Rate 18 11/19/2017 [facility] Heart Rate 90 11/19/2017 [facility] Systolic (mm Hg) 106 11/19/2017 [facility] Center Diastolic (mm Hg) 71 11/19/2017 [facility] Center Respitory Rate 18 11/19/2017 [facility] Temperature Oral (F) 98.1 F 11/19/2017 [facility] Respitory Rate 18 11/19/2017 [facility] Systolic (mm Hg) 168 11/19/2017 [facility] Center Diastolic (mm Hg) 107 11/19/2017 [facility] Heart Rate 87 11/19/2017 [facility] Temperature Oral (F) 98.1 F 11/19/2017 [facility] Weight 127.027 11/18/2017 [facility] Weight 127.027 11/17/2017 [facility] Weight 127.027 11/15/2017 [facility] BMI Calculated 48.16 11/15/2017 [facility] Height 162.56 cm 11/15/2017 [facility] Height 149.86 cm 11/14/2017 [facility] BMI Calculated 56.67 11/14/2017 [facility] Encounters Location Location Encounter Encounter Reason Attending ADM DC Stat us Source Details Type Number For Provider Date Date Visit [facility] [id number] [place] 11/14 [facility] [id number] [place] 05/22 05/22 [facility] Kevin /2017 [facility]NA Phone [id number] 01/01 01/03 Misc her Neurosurgery Message /2018 Josefa ro C MNA Phone [id number] 01/26 01/28 Misc her Neurosurgery Message /2018 Josefa gonzalez [facility] [place] [id number] 02/10 02/12 Mis her Neurosurgery Message /2018 Josefa gonzalez [facility] Phone [id number] 03/02 03/04 Mis her Neurosurgery Message /2018 Josefa gonzalez [facility] Procedures Procedure Code Date Perfomer Comments Source Cholecystectomy [id number] [facility] Shunt of cerebral [id number] [facility] ventricle to Neuro, extracranial site [facility] Assessment and Plan Assessment and Plan Date Source Extracted from:Title: Ophthalmology Consultation 05/22/2018 [facility] Author: Rajni Menjivar MD Date: 05/22/18 CONSULTATION - OPHTHALMOLOGY PATIENT NAME: Karen ARCE MR #: [id number] ROOM:ED REQUESTING TEAM/ATTENDING: JUANI DATE OF CONSULT: 05/22/2018 CONSULTING ATTENDING: Lucia Bob MD CONSULTING RESIDENT: Rajni Menjivar MD REASON FOR CONSULT: Evaluate for disc edema CHART REVIEWED: YES HISTORY OF PRESENT ILLNESS: The patient is a patient with PMH of spina bifida with FITNESS CONSULTANT shunt with several week history of severe [...] tropicamide 1% @ 8:30AM) OPTIC NERVE: Right: [place], healthy nerve Left: [place], healthy nerve C:D RATIO Right: 0.2 Left: 0.2 POSTERIOR SEGMENT Right: Macula, vessels, periphery within normal limits Left: Macula, vessels, periphery within normal limits DIAGNOSES/RECOMMENDATION: 1. Spina bifida - No evidence of disc edema - Management as per neuro-surgery The patient has been given information t o call for an appointment to follow-up with Lucia Bob MD at the [facility] in in 3-4months. (Located: [address] [place] [address]; Appt #: [phone]). Please re-consult if any changes develop. Thank you for the consult. Rajni Menjivar MD Ophthalmology, PGY-2 Faculty note: Patient exam reviewed with the resident. I agree with above assessment and plan. Any additional findings or changes are detailed below. examined for headaches. no evidence of papilledema Extracted from:Title: Progress Note 11/19/2017 [facility] Author: Ruth Quesada MD Date: 11/18/17 1.Acute headache,Acute headache possibly related to FITNESS CONSULTANT infection, diffe rential includes ELISE, neuropathy, and narcotic withdrawal -Discussed with neurosurgery today do n ot believe that there is any role for intervention, no evidence of infection, shunt is appropriate, no evidence of optic disc changes Discussed this with the patient 2.FITNESS CONSULTANT (ventriculoperitoneal) shunt status Appears to be functioning well and decompressing the ventri cles 3.Acute UTI Will discontinue vancomycin continue Zo syn for the patient's prior osteomyelitis Urine cultures are negative 4.Decubitus ulcer present on admission, evaluated by wound care, RN following recs daily -[facility] for[facility] tomorrow. 5.Acute pain MMP regimen implemented by [facility], les sed recommendations with team today, will add NSAID and trazodone for sleep Lovenox Extracted from:Title: [facility] Consult Note Author: Donna Hernandez MD Date: 11/15/17 Patient: KAREN NGUYEN JR Age: 32 years Sex: Male : 1985 Associated Diagnoses: None Author: Donna Hernandez MD Basic Information Referral source Reason for consultation: Complex Acute Pain Chief Complaint 11/14/2017 17:41 transfer from [facility] for FITNESS CONSULTANT shunt malfunction/enlarged ventricles c/o ELISE/intermittent blurred vision [...] nausea, vomiti ng in setting of prior FITNESS CONSULTANT shunt. Per primary team no planned neurosurgical intervention at this time. consulted for help in managing patient's headache . Histories Past Medical History: Resolved Asthma (179046026): Resolved. Bronchitis (46367558): Resolved. Cerebral palsy (371610994): Resolved. Hydrocephalus (104997647): Resolved. Osteomyelitis (33065480): Resolved. Family History: No family history items have been selected or recorded. Procedure history: Cholecystectomy (SNOMED CT 32675929). Shunt of cerebral ventricle to extracranial site (SNOMED CT 772023432). Social History Social and Psychosocial Habits Tobacco [...] BID enoxaparin: 40 mg, 0.4 mL, SUB-Q, [id number] gabapentin: 300 mg, 1 cap, PO, Q8Hnow [...] ml INJ 40 mg 0.4 mL, SUB-Q, [id number] gabapentin 300 mg CAP 300 mg 1 [...] All Problems Acute pain / SNOMED CT 899701130 / Confirmed Headache / SNOMED CT 92170062 / Confirmed Review of Systems Constitutional Cardiovascular Ear/Nose/Mouth/Throat Respiratory: Negative. Gastrointestinal: Nausea. Musculoskeletal Neurologic: headache, FITNESS CONSULTANT shunt in place. +nausea. Psychiatric Endocrine Hematology/Lymphatics [...] 00:43) BMI 48.16 (NOVEMBER 15 00:43) HENT: FITNESS CONSULTANT shunt in situ, headache. Review / Management [...] interpretation Impression and Plan Diagnosis Acute headache ([id number], Working, Medical). Course: Worsening. Orders Education and Follow-up: Counseled : Patient, Regarding treatment, Regarding medications. [employer] Services 32M hx CP, FITNESS CONSULTANT shunt, chronic foot pressu re ulcers. Consulted [...] with spina bifi daand hydrocephalus treated by FITNESS CONSULTANT shunt who presented to [facility] emergency room complaining of headache and blurry vision. He was there 2 days and transferredt o [facility] for higher level of care. Here he [...] beforeany CSF can be obtained from his FITNESS CONSULTANT shunt. Wewill t ry to avoid any IV narcotics,manage his pain with oral analgesicsas he is toleratingall his meals,and de-escalate his antibiotics as soon as possible. 1.Acute headache Patient has headaches that may bedue to infection of his FITNESS CONSULTANT system, however the differential also includes migraine, neuropathy and narcotics withdrawal. 2.FITNESS CONSULTANT (ventriculoperitoneal) shunt status Appears to be functioning well and decompressing the ventric les We will avoid anyinterventionand access until systemic infec tion is ruled out 3.Acute UTI Broad-spectrum antibiotic coverage until systemic infection is ruled out 4.Decubitus ulcer Present on admission We will ask wound care to evaluate and prescribe treatment Lovenox Home once etiology of headache is known [facility] Hospitalist service is primary. Page [phone] aiyana montalvormarnie. Plan of Care No Data Provided for This Section Social History Social History Date Source Social History TypeResponse 05/22/2018 [facility] Smoking Status Current every day smoker; Type: Cigarett es; Lives with someone who smokes; Cigarette Smoking Last 365 Days Yes; Reg Smoking Cessation Counseling No entered on: 05/22/18 Social History TypeResponse 05/22/2018 [facility] Smoking Status Current every day smoker; Type: Cigarett es; Lives with someone who smokes; Cigarette Smoking Last 365 Days Yes; Reg Smoking Cessation Counseling No entered on: 05/22/18 Family History No Data Provided for This Section Advance Directives No Data Provided for This Section Functional Status No Data Provided for This Section
--- OUTSIDE RECORDS SUMMARY | 2020-07-28 11:39 | XMS REPORT | Continuity of Care Document ---
:1985 Author Organization [facility] t Address [address] [place] [address] Care Team Providers Name Role Phone Sharpless Primary Care Physician Ryan NUNO Attending Clinician Norma NUNO Attending Clinician Brad NUNO Attending Clinician RYAN Attending Clinician Unavailable Alex De Jesus Attending Clinician Percy Quesada Attending Clinician LAMAR GENAO Attending Clinician Unavailable BRAD Admitting Clinician Unavailable Kevin Rowland Admitting Clinician Percy Quesada Admitting Clinician LAMAR GENAO Admitting Clinician Unavailable Payers Payer Name Policy Type Policy Effective Date Expiration Date Sour ce Number MEDICAID - [id number] [address] [facility] MEDICAID MGD 00:00:00 - Medical CAREMCD [facility] STAR [id number]/2019-PresentMedic aid Contracted Problems Condition Condition Condition Status Onset Resolution Last Treating Co mments Source Name Details Category Date Date Treatment Clinician Date Hyperglyce Hyperglyce Disease Active C [facility] pedro pedro 07-21 [facility] without without 00:00: [facility]osis [facility] HEADACHE Diagnosis Active 2017-072018-05-27 M emoria 07-22 22:05:00 l HEADACHE 00:00: Christian n 00 Active 05/22/2018 [facility] SHUNT Diagnosis Active 2017-11-14 Mem oria MALFUNCTIO 11-14 20:00:00 l N SHUNT 00:00: Jason MALFUNCTIO 00 N Active 11/14/2017 [facility] ACUTE Diagnosis Active 2017-11-20 Mem oria HEADACHE 11-14 09:20:00 l ACUTE 00:00: [place] HEADACHE 00 Active 11/14/2017 [facility] Spina Spina Disease Active [facility] bifida bifida 12-24 [facility] - 00:00: Medical 00 [place] Pyelonephr Pyelonephr Disease Active [facility] itis itis 12-23 [facility] - 00:00: Medical 00 [place] Nicotine Nicotine Problem Active [facility] dependence [facility] - Memoria l [facility] Lumbar Lumbar Problem Active [facility] spina spina [facility] - bifida bifida Memoria with with l hydrocepha hydrocepha Ou tpati [facility] ent Clinics Dependence Dependence Problem Active [facility] on [facility] - wheelchair wheelchair Me moria l [facility] Clinics Fecal Fecal Problem Active [facility] incontinen incontinen [facility] - ce ce Memoria l [facility]ics Foot ulcer Foot ulcer Problem Active [facility] - Memoria l [facility] Depression Depression Problem Active [facility] with with [facility] - anxiety anxiety Memoria l [facility]ics Paraplegia Paraplegia Problem Active [facility] - Memoria l [facility] Constipati Constipati Problem Active [facility] - Memoria l [facility]ics Incontinen Incontinen Problem Active [facility] ce of ce of [facility] - urine urine Memoria l [facility] Nausea Nausea Problem Active [facility] alone alone [facility] - Memoria l [facility] Episodic Episodic Problem Active [facility] tension-ty tension-ty [facility] - pe pe Memoria headache, headache, l not not Outpati intractabl intractabl en t e e Clinics 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 [facility] (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 Me moria l) shunt l) shunt l status status [facility] Clinics Nonintract Nonintract Problem [...] Kristen nn d bifida, unspecifie d 12/09/2018 [facility] Nausea Problem 2018-12-09 Memor ia with 14:14:02 l vomiting, Nausea Kristen nn unspecifie with d vomiting, unspecifie d 12/09/2018 [facility] Diplopia Problem 2018-12-09 Mem oria 14:14:02 l Diplopia Christian n 12/09/2018 [facility] 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, 14:14:02 l unspecifie Cerebral He rmann d palsy, unspecifie d 12/09/2018 [facility] 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-09 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:14:02 l other Acquired Christian n specified absence of parts of other digestive specified tract parts of digestive tract 12/09/2018 [facility] Nicotine Problem 2018-12-09 Mem oria dependence 14:14:02 l , Nicotine Christian kitchen cigarettes dependence , , uncomplica cigarettes odalys , uncomplica odalys 12/09/2018 [facility] Presence Problem 2018-12-09 Mem oria of 14:14:02 l cerebrospi Presence He rmann nal fluid of drainage cerebrospi device nal fluid drainage device 12/09/2018 [facility] Allergy Problem 2018-12-09 Erwin benjamin status to 14:14:02 l other Allergy [place] antibiotic status to agents other status antibiotic agents status 12/09/2018 [facility] Allergy Problem 2018-12-09 Erwin benjamin status to 14:14:02 l other Allergy [place] drugs, status to medicament other s and drugs, biological medicament substances s and status biological substances status 12/09/2018 [facility] Allergy Problem 2018-12-09 Erwin benjamin status to 14:14:02 l narcotic Allergy Kristen nn agent status to status narcotic agent status 12/09/2018 [facility] Asthma Problem Resolve 2019-03-06 Erwin benjamin (disorder) d 01:05:55 l Asthma [place] (disorder) Resolved Problem 03/06/2019 [facility] Bronchitis Problem Resolve 2019-03-06 Memoria (disorder) d 01:05:55 l [place] Bronchitis (disorder) Resolved Problem 03/06/2019 [facility] Cerebral Problem Resolve 2019-03-06 Me moria palsy d 01:05:55 l (disorder) Cerebral He rmann palsy (disorder) Resolved Problem 03/06/2019 [facility] Hydrocepha Problem Resolve 2019-03-06 Memoria bam d 01:05:55 l (disorder) Christian n Hydrocepha bam (disorder) Resolved Problem 03/06/2019 [facility] Osteomyeli Problem Resolve 2019-03-06 Memoria tis d 01:05:55 l (disorder) Christian n Osteomyeli tis (disorder) Resolved Problem 03/06/2019 [facility] Acute pain Problem Active 2019-03-06 M emoria (finding) 01:05:55 l Acute Jason pain (finding) Active Problem 03/06/2019 [facility] Headache Problem Active 2019-03-06 Mem oria (finding) 01:05:55 l Headache Christian n (finding) Active Problem 03/06/2019 [facility] Headache Problem 2017-2018-12-09 2018-12-09 Memoria 07-22 14:14:02 14:14:02 l Headache 06:00: Christian n 00 05/22/2018 12/09/2018 [facility] Allergies, Adverse Reactions, Alerts Allergy Allergy [...] amoxicil Active Memori [place] morphine morphine Active Memori a l [place] Toradol Toradol Active Memoria l Jason Minocin Minocin Active Memoria l [place] Zofran Zofran Active Memoria l Jason Levaquin Levaquin Active Memori a l [place] Bactrim Bactrim Active Memoria l [place] Social History Social Habit Start Date Stop Date Quantity Comments Source History of tobacco Cigarette Smoker [facility] Sex Assigned [facility] Cigarettes smoked 2016-12-25 2016-12-25 [facility] - current (pack per 00:00:00 00:00:00 Medical Center day) - Reported Smoking Status Start Date Stop Date Source Social History 2018-05-22 11:26:10 [facility] manzo Medications Ordered Filled Start Stop Current Ordering Indication Dosage Frequency Signature Comments Components Source Medication Medication Date Date Medication? Clinician (SIG) Name Name buPROPion 2020- No 150mg QD Take [address] [facility] (WELLBUTRIN 1-17 01-16 tablet [facility] - XL) 150 MG 00:00: 23:59 (150 mg Med ical 24 hr 00 :00 total) by Center tablet mouth daily. citalopram 2020- No 40mg QD Take [address] [facility] [facility] (CELEXA) 40 1-17 -16 tablet (40 L ukes - MG tablet 00:00: 23:59 mg total) Me dical 00 :00 by mouth Center daily. oxyCODONE-a Yes 1{tbl} Take [address] cetaminophe 1-16 tablet by Charly es - n 14:44: mouth Medical (PERCOCET) 50 every 4 Center 10-325 mg (four) per tablet hours as needed for Pain. zinc Yes 5g Q.5D Apply [address] [address] oxide-birdie 1-16 topically Charly es - latum 00:00: 2 (two) Medical (CRITIC-AID 00 times Center ) 20-51 % daily. Pste topical paste meropenem Yes 1g Inject [address] (MERREM) 1-16 intravenou [facility] - MBP 1 gm in 00:00: sly every M edical 100 mL NS 00 8 (eight) Cente r hours. insulin Yes 58U Q.5D Inject 58 [facility] [...] injection (three) times daily before meals. traZODone 0 2020- No 100mg QD Take [address] [facility] (DESYREL) 16 -15 tablet [facility] - 100 MG 00:00: 23:59 (100 mg Medical tablet 00 :00 total) by Center mouth nightly for 30 days. normal 2017-07 No 1,000 mL, Memori a saline 0.9% 07-22 Rate: 100 l IV 1,000 mL 11:04: ml/hr, Herm philip Infuse over: 10 hr, Route: IV, Dosing Weight 131.818 kg, Total Volume: 1,000, Start date: 05/22/18 5:04:00 PREFORMS LAMINATOR, Duration: 30 day, Stop date: 06/21/18 5:03:00 PREFORMS LAMINATOR, 2.4, m2 Magnesium 2017-07 No Notes: Memori a Sulfate 07-22 WASTE: F/P l 10:36: - Sink; E [facility] Trash Bin Isolyte S 2017-07 No Notes: Memori a PH-7.4 07-22 (Same as: l (Bolus) IV 10:36: Isolyte S rmann PH 7.4) Phenergan 2017-07 No 12.5 mg, Erwin benjamin 08 0.5 mL, l 10:35: Route: Jason 00 IVPB, Drug form: INJ, ONCE, Dosing Weight 131.818, kg, Priority: STAT, Start date: 05/22/18 4:35:00 PREFORMS LAMINATOR, Stop date: 05/22/18 4:35:00 PREFORMS LAMINATOR Citalopram Citalopram Yes Na Gamble [address] Hydrobromid Hydrobromid 7-16 L ukes - e e 00:00: Memoria 00 l [facility] Clinics Seroquel Seroquel Yes Na Gamble [address] [facility] 7-16 [facility] - 00:00: Memoria 00 l [facility] Clinics Docusate Yes 100 mg = 1 Mem oria Sodium 100 5-08 cap, PO, l MG Oral 14:56: BID, 0 [place] Capsule 00 Refill(s) Zosyn Yes 0 Memoria 5-08 Refill(s) l 14:56: [place] 00 celecoxib Yes 200 mg = 1 Me moria 200 mg oral 5-08 cap, PO, l capsule 14:56: BID, 0 Jason 00 Refill(s) ascorbic Yes 500 mg = 1 Mem oria acid 5-08 tab, PO, l 14:56: BID, 0 Jason 00 Refill(s) acetaminoph Yes 1,000 mg = Memoria en 500 mg -08 2 tab, PO, l oral tablet 14:56: Q6Hnow, 0 H ermann 00 Refill(s) Oxycodone Yes 5 mg = 1 [...] n 5-08 Daily, 0 l 14:56: Refill(s) Jason methocarbam Yes 1,000 mg = Memoria ol 500 mg -08 2 tab, PO, l oral tablet 14:56: Q8H, 0 Herm philip Refill(s) LORazepam Yes 0.5 mg = 1 Me moria 0.5 mg oral 5-08 tab, PO, l tablet 14:56: Q8H, PRN Jason 00 Anxiety, 0 Refill(s) Lidocaine Yes 3 patch, Erwin benjamin Hydrochlori 5-08 TOP, l de 0.05 14:56: Daily, Jason MG/MG 00 Remove Transdermal after 12 Patch hours, 0 [Lidoderm] Refill(s) Robaxin No Notes: Memoria -06 (Same l 21:00: as:Robaxin Jason 00 ) Oxycodone No Notes: Memori a Hydrochlori 11-17 (Same as: l de 5 MG 18:06: Roxicodone Herm philip Oral Tablet 00 ) Ativan No Notes: Memoria 5-06 (Same as: l 15:18: Ativan) Jason 00 Trazodone No Notes: Memori a Hydrochlori 5-06 (Same As: l de 50 MG 02:00: Desyrel) Kristen nn Oral Tablet 00 remove No Notes: Memoria patch 5-06 Remove l 02:00: patch 12 Jason 00 hours after applicatio n each day. Oxycodone No Notes: Memori a Hydrochlori 5-05 (Same as: l de 5 MG 22:01: Roxicodone Herm philip Oral Tablet 00 ) Celebrex No Notes: Memoria 5-05 NSAID. l 22:00: Please [place] 00 check indication . Not for seizure. (Same As: CeleBREX) Vancomycin No 2001 mg: Me moria 5-05 infuse l 21:00: over 2.5 Jason 00 hours Lidocaine No Notes: Memori a [...] 5-04 not give l 22:40: IV push. (Same as: Phenergan) Dilaudid No Notes: Memoria 5-04 Same as l 22:40: Dilaudid Tramadol No Notes: Not Mem oria 5-04 to exceed l 22:00: 400mg/day. [place] (Same As: Ultram) gabapentin No Notes: Memor ia 5-04 (Same as: l 22:00: Neurontin) Acetaminoph No Notes: Max Memoria en 5-04 acetaminop l 22:00: hen 4000 [place] 00 mg/day (4 gm/day). (Same as: Tylenol Extra Strength) Robaxin No Notes: Memoria 5-04 (Same l 22:00: as:Robaxin ) Oxycodone No Notes: Memori a Hydrochlori 5-04 (Same as: l de 5 MG 21:33: Roxicodone Herm philip Oral Tablet 00 ) Beneprotein No Notes: Erwin benjamin 7 gm pkt 5-04 (Same as: l 21:30: Beneprotei Jason 00 n) Acetaminoph No 1 tab, PO, Memoria en 325 MG / 5-04 TID, 0 l Oxycodone 17:12: Refill(s) Her jovany Hydrochlori 00 de 10 MG Oral Tablet [Percocet 10/325] Dilaudid No 0.5 mg, Memori a 5-04 0.25 mL, l 16:01: Route: IVP, Drug form: INJ, ONCE, Start date: [...] C) multivitami No Notes: Erwin benjamin n 5-04 (Same l 14:00: as:Thera) WASTE: F/P - Black; E - Municipal Trash Bin Take with food. Naproxen No Notes: Memoria 5-04 (Same as: l 07:00: Naprosyn) Take with food. Zosyn No Notes: Memoria 5-04 (Same as: l 07:00: Zosyn) Dosing based on Piperacill in component MEDICATION WASTE Product Size: 3375 mg Product Wasted: ___ mg Vancomycin No 2000 mg: Me moria 5- infuse l 07:00: over 2.5 Jason 00 hours For adult patients only: Round to nearest 250 mg per Medical Staff approval MEDICATION WASTE Product Size: 1000 mg Product Wasted: ___ mg Enoxaparin No Notes: Memor ia - (Same as: l 07:00: Lovenox) Sodium No 1,000 mL, Memori a Chloride 11-15 Rate: 125 l 0.9% IV 06:46: ml/hr, Jason 1,000 mL 00 Infuse over: 8 hr, Route: IV, Dosing Weight 127.27 kg, Total Volume: 1,000, Start date: 11/15/17 1:46:00 CDT, Duration: 30 day, Stop date: 12/15/17 1:45:00 CDT, 2.44, m2 Saline No Notes: Memoria Flush 0.9% 11-15 (Same as: l 06:46: BD Posiflush) Acetaminoph No Notes: Do M emoria en - not exceed l 06:46: 4 gm/day. (Same as: Tylenol) Acetaminoph No Notes: Erwin benjamin en 325 MG / - (Same as: l Hydrocodone 06:46: [place] Kristen nn Bitartrate 00 325/5) Do 5 MG Oral not exceed Tablet 4gm/day of acetaminop hen. Reglan No Notes: Memoria 5-04 (Same as: l 04:27: Reglan) Benadryl No Notes: Memoria 5-04 (Same as: l 04:27: Benadryl) Magnesium No Notes: Memori a Sulfate 11-15 WASTE: F/P l 04:26: - Sink; E [place] - Municipal Trash Bin Sodium No 1,000 mL, Memori a Chloride 5-04 1000 l 0.9% 04:26: ml/hr, [place] (Bolus) IV 00 Infuse Over: 1 hr, Route: IV, 1,000, Drug form: INJ, ONCE, Priority: STAT, Dosing Weight 127.273 kg, Start date: 11/14/17 23:26:00 CDT, Stop date: 11/14/17 23:26:00 CDT Zosyn No 4.5 gm, Memoria 11-15 Route: l 04:10: IVPB, Cowan 00 ONCE, Dosing Weight 127.273, kg, Priority: STAT, Start date: 11/14/17 23:10:00 CDT, Stop date: 11/14/17 23:10:00 CDT, ABX Indication : Bacteremia Vancomycin No 2000 mg: Me moria 11-15 infuse l 04:10: over 2.5 Jason 00 hours For adult patients only: Round to nearest 250 mg per Medical Staff approval MEDICATION WASTE Product Size: 1000 mg Product Wasted: ___ mg normal No 1,000 mL, Memori a saline 0.9% 11-15 Rate: 75 l IV 1,000 mL 03:39: ml/hr, Herm philip Infuse over: 13.3 hr, Route: IV, Dosing Weight 127.273 kg, Total Volume: 1,000, Start date: 11/14/17 22:39:00 CDT, Duration: 30 day, Stop date: 12/14/17 22:38:00 CDT, 2.36, m2 Acetaminoph No Notes: Max Memoria en 11-15 acetaminop l 02:56: hen 4000 [place] 00 mg/day (4 gm/day). (Same as: Tylenol Extra Strength) Rocephin No Notes: Memoria 11-15 (Same As: l 02:21: Rocephin). Jason 00 MEDICATION WASTE Product Size: 1000 mg Product Wasted: _0__ mg Morphine No 4 mg, Memoria 11-15 Route: l 00:05: IVP, ONCE, Jason Dosing Weight 127.273, kg, Priority: STAT, Start date: 11/14/17 19:05:00 CDT, Stop date: 11/14/17 19:05:00 CDT Benadryl No Notes: Memoria 5-03 (Same as: l 23:14: Benadryl) Benadryl No Notes: Memoria 5-03 (Same as: l 22:56: Benadryl) Morphine No 4 mg, 1 Memori a 5-03 mL, Route: l 22:56: IVP, Drug form: SOLN, ONCE, Dosing Weight 127.273, kg, Priority: STAT, Start date: 11/14/17 17:56:00 CDT, Stop date: 11/14/17 17:56:00 CDT Tylenol Tylenol Yes Na Gamble [address] with with as needed [facility] - Codeine #4 Codeine #4 Mem oria l [facility] ent Clinics Macrobid Macrobid Yes Na Gamble [address] with food [facility] l [facility] Pantoprazol Pantoprazol Yes Na Gamble [address] e Sodium e Sodium [facility] l [facility]ics Collagenase Collagenase Yes Na Gamble [address] [facility] applicatio [facility] - n to Memoria affected l area [facility] ent Clinics Vital Signs Vital Name Observation Time Observation Value Comments Source Systolic blood 2019-07-30 12:58:00 136 mm[Hg] [facility] Diastolic blood 2019-07-30 12:58:00 78 mm[Hg] [facility] S [facility] Heart rate 2019-07-30 12:58:00 96 /min [facility] Body temperature 2019-07-30 12:58:00 35.78 Abi [facility] Respiratory rate 2019-07-30 12:58:00 18 /min [facility] Oxygen saturation in 2019-07-30 12:58:00 96 /min [facility] Arterial blood by Medical Ce nter Pulse oximetry Respitory Rate 2018-05-22 17:30:00 Tonyori al Jason Systolic (mm Hg) 2018-05-22 17:30:00 Erwin rial [place] Diastolic (mm Hg) 2018-05-22 17:30:00 Mem orial [place] Temperature Oral (F) 2018-05-22 17:30:00 98.4 F Memorial Jason Temperature Oral (F) 2018-05-22 16:23:00 98.6 F Memorial Jason Systolic (mm Hg) 2018-05-22 16:23:00 Erwin rial [place] Diastolic (mm Hg) 2018-05-22 16:23:00 Mem orial [place] Respitory Rate 2018-05-22 14:00:00 Memori al [place] Systolic (mm Hg) 2018-05-22 14:00:00 Erwin rial [place] Diastolic (mm Hg) 2018-05-22 14:00:00 Mem orial Jason Respitory Rate 2018-05-22 13:30:00 Memori al Jason BMI Calculated 2018-05-22 10:16:00 Memori al Jason Height 2018-05-22 10:16:00 149.86 cm Memorial Jason Weight 2018-05-22 10:16:00 Memorial [place] Heart Rate 2018-05-22 10:16:00 Memorial [place] Temperature Oral (F) 2018-05-22 10:16:00 97.9 F Memorial Jason Temperature Oral (F) 2017-11-19 13:40:00 97.2 F Memorial Jason Systolic (mm Hg) 2017-11-19 13:40:00 Erwin rial Jason Diastolic (mm Hg) 2017-11-19 13:40:00 Mem orial Jason Heart Rate 2017-11-19 13:40:00 Memorial Jason Respitory Rate 2017-11-19 13:40:00 Memori al [place] Heart Rate 2017-11-19 05:24:00 Memorial [place] Systolic (mm Hg) 2017-11-19 05:24:00 Erwin rial Jason Diastolic (mm Hg) 2017-11-19 05:24:00 Mem orial Jason Respitory Rate 2017-11-19 05:24:00 Memori al Jason Temperature Oral (F) 2017-11-19 05:24:00 98.1 F Memorial [place] Respitory Rate 2017-11-19 01:15:00 Memori al [place] Systolic (mm Hg) 2017-11-19 01:15:00 Erwin rial [place] Diastolic (mm Hg) 2017-11-19 01:15:00 Mem orial Jason Heart Rate 2017-11-19 01:15:00 Memorial [place] Temperature Oral (F) 2017-11-19 01:15:00 98.1 F Memorial Jason Weight 2017-11-18 14:00:00 Memorial Jason Weight 2017-11-17 14:00:00 Memorial [place] Weight 2017-11-15 14:00:00 Memorial [place] BMI Calculated 2017-11-15 05:43:00 Memanai gabbi Jason Height 2017-11-15 05:43:00 162.56 cm Memorial Jason Height 2017-11-14 22:41:00 149.86 cm Memorial [place] BMI Calculated 2017-11-14 22:41:00 Gerri seo [place] Procedures Procedure Date / Time Performing Clinician Source Performed RHYTHM STRIP - SCAN 2019-08-07 14:11:01 Provider [facility] RHYTHM STRIP - SCAN 2019-07-31 15:32:49 Provider [facility] POCT-GLUCOSE METER 2019-07-30 12:52:00 Norma [facility] POCT-GLUCOSE METER 2019-07-30 09:03:00 [facility] 2019-07-29 20:45:00 Norma [facility] POCT-GLUCOSE METER 2019-07-29 16:35:00 Norma [facility] POCT-GLUCOSE METER 2019-07-29 12:08:00 Enio Green [facility] POCT-GLUCOSE METER 2019-07-29 08:35:00 Norma [facility] POCT-GLUCOSE METER 2019-07-28 21:02:00 [facility] LOWER EXTREMITY WITHOUT 2019-07-28 18:46:00 Enio Green [facility] POCT-GLUCOSE METER 2019-07-28 12:42:00 Norma Enio [facility] POCT-GLUCOSE METER 2019-07-28 08:24:00 Enio Green [facility] Cholecystectomy Memorial [place] 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 Plan of Care Planned Activity Planned Date Details Comments Source Future Scheduled 2022-07-[address] [facility] Test 00:00:00 (procedure) [code = Medical Center 79870480] Future Scheduled 2020-03-15 INFLUENZA VACCINE (#1) [facility]:00 [code = INFLUENZA Medical Ce nter VACCINE (#1)] Future Scheduled 2019-10-[address] [facility] - Test 00:00:00 measurement Medical Center (procedure) [code = 45361642] Future Scheduled [address] DIAB[address]IC EYE EXAM [facility] - Test 00:00:00 [code = DIABETIC EYE Medical Center EXAM] Future Scheduled [address] [facility] - Test 00:00:00 examination Medical Center (regime/therapy) [code = 935596930] Future Scheduled 1995 Urine screening for [facility] - Test 00:00:00 protein (procedure) Medical Center [code = 116556661] Future Scheduled [address] [facility] - Test 00:00:00 0-64 YRS (1 of 1 - Medical C enter PPSV23) [code = PNEUMOCOCCAL VACCINE 0-64 YRS (1 of 1 - PPSV23)] Encounters Start End Encounter Admission Attending Care Care Encounter Source Date/Time Date/Time Type Type Clinicians Facility Department ID 2019-03-02 2019-03-03 Outpatient MHMISCHER MHMISCHER [id number] 11:11:26 23:59:59 08 2019-02-10 2019-02-11 Outpatient MHMISCHER MHMISCHER [id number] 11:16:47 23:59:59 07 2019-01-26 2019-01-27 Outpatient MHMISCHER MHMISCHER [id number] 10:52:03 23:59:59 06 2019-01-01 2019-01-02 Outpatient MHMISCHER MHMISCHER [id number] 13:55:03 23:59:59 05 2018-05-22 2018-05-22 [id number] 04:12:00 12:24:00 Zohaib Johnson 2018-02-18 2018-02-18 [facility] [id number] 11:15:00 11:15:[address] [facility] - Drive [facility] Outpati ent Clinics 2018-01-27 2018-01-27 [facility] [id number] 11:30:00 11:30:[address] Luke s - Drive [facility] Medicine Outpati ent Clinics 2018-01-03 2018-01-03 [facility] [id number] 15:41:00 15:41:[address] Luke s - Drive [facility] Medicine Outpati ent Clinics 2017-12-23 2017-12-23 [facility] [id number] 15:42:00 15:42:00 t Channing [employer] Luke s - Drive [facility] Medicine Outpati ent Clinics 2017-12-17 2017-12-17 [facility] [id number] 11:00:00 11:00:00 t Channing [employer] LuQueryday s - Drive [facility] Medicine Outpati ent Clinics 2017-11-14 2017-11-19 Outpatient Ruth Quesada [facility] [id number] 17:40:00 12:28:00 Percy Nikole Results Test Description Test Time Test Comments Results Result Comments Source POC-Glucose meter 2019-07-30 13:03:00 Test Item Value Reference Range Interpretation Comme nts POC-Glucose Meter (test code = 140 mg/dL 70-110 H : [facility] [address] [facility] [address], [address] 30: Crabber/Techni rose ID = [id number] for REY VALENTIN E Lab Interpretation (test code = Abnormal 91959-0) [facility] [id number] 13:03:00 Test Item Value Reference Range Interpretation Comments POC-GLUCOSE METER 140 mg/dL 70-110 H : TESTED A T [facility] 6720 (BEAKER) (test code = [facility]INA [facility], 1538) 52445: Crabber/Techni rose ID = [id number] for AARON COTTRELL POCT-GLUCOSE [id number] 09:15:00 Test Item Value Reference Range Interpretation Comments POC-GLUCOSE METER 142 mg/dL 70-110 H : TESTED A T [facility] 6720 (BEAKER) (test code = [facility], 153) 73462: Crabber/Techni rose ID = [id number] for AARON COTTRELL POCT-GLUCOSE [id number] 20:56:00 Test Item Value Reference Range Interpretation Comments POC-GLUCOSE METER 134 mg/dL 70-110 H : TESTED A T [facility] 6720 (BEAKER) (test code = [facility], 1538) 91936: Crabber/Techni rose ID = [id number] for MG LANZA POCT-GLUCOSE [id number] 16:46:00 Test Item Value Reference Range Interpretation Comments POC-GLUCOSE METER 91 mg/dL 70-110 : TESTED A T [facility] 6720 (BEAKER) (test code = [facility], 1538) 59489: Crabber/Techni rose ID = [id number] for AARON CABRAL POCT-GLUCOSE [id number] 12:19:00 Test Item Value Reference Range Interpretation Comments POC-GLUCOSE METER 237 mg/dL 70-110 H : TESTED A T [facility] 6720 (BEAKER) (test code = [facility], 1538) [address]: Crabber/Techni rose ID = [id number] for AARON COTTRELL MR, EXTREMITY, LOWER, WITHOUT CONTRAST, [id number] 09:12:00FINAL REPORT MRI of the right and [...] evidence of osteomyelitis. Severe muscle atrophy. Signed: Philip Garza MDReport Verified Date/Time: 07/29/2019 09:12:01 Reading Location: [address] Ortho Consult Reading Room MR, EXTREMITY, LOWER, WITHOUT CONTRAST, [id number] 09:12:00FINAL REPORT MRI of the right and [...] evidence of osteomyelitis. Severe muscle atrophy. Signed: Philip Garza Verified Date/Time: 07/29/2019 09:12:01 Reading Location: [facility] C013X Ortho Consult Reading Room MR lower extremity without IV contrast right [id number] 09:12:00Interface, External Ris In - 07/29/2019 9:14 [...] evidence of osteomyelitis. Severe muscle atrophy. Signed: Philip Garza Verified Date/Time: 07/29/2019 09:12:01 Reading Location: [facility] C013X Ortho Consult Reading [facility] without IV contrast left [id number] 09:12:00Interface, External Ris In - 07/29/2019 9:14 [...] evidence of osteomyelitis. Severe muscle atrophy. Signed: Philip Garza Verified Date/Time: 07/29/2019 09:12:01 Reading Location: [facility] B1 C013X Ortho Consult Reading Room [facility]PO[facility] 2019-07-29 08:47:00 Test Item Value Reference Range Interpretation Comments POC-GLUCOSE METER 264 mg/dL 70-110 H : TESTED A T [facility] 6720 (FELICIANO) (test code = [place], 1538) [address]: Crabber/Techni rose ID = [id number] for AARON COTTRELL ISLET CELL AB [id number] 07:43:00 Test Item Value Reference Range Interpretation Comments ISLET CELL AB Refer to individual AUTOVERIFICATION (test Islet Cell Ab code = 2556) and/or Islet Cell Ab Titer results. POCT-GLUCOSE [id number] 21:27:00 Test Item Value Reference Range Interpretation Comments POC-GLUCOSE METER 130 mg/dL 70-110 H : TESTED A T [facility] 6720 [facility] (test code = [facility], 153) 71099: Crabber/Techni rose ID = [id number] for FERNIE APARICIO BLOOD [id number] 13:00:00 Test Item Value Reference Range Interpretation Comments CULTURE (BEAKER) (test No growth in 5 days code = 1095) BLOOD [id number] 13:00:00 Test Item Value Reference Range Interpretation Comments CULTURE (BEAKER) (test No growth in 5 days code = 1095) POCT-GLUCOSE [id number] 12:57:00 Test Item Value Reference Range Interpretation Comments POC-GLUCOSE METER 138 mg/dL 70-110 H : [facility] ([facility]NER[facility] (test code = [facility], 153) [address]: Crabber/Techni rose ID = [id number] for [place] LLIS, JUAN ANTONIO POCT-GLUCOSE [id number] 08:43:00 Test Item Value Reference Range Interpretation Comments POC-GLUCOSE METER 226 mg/dL 70-110 H : [facility] ([facility]ANNER) (test code = [facility], 153) [address]: Crabber/Techni rose ID = [id number] for [place] LLIS, JUAN ANTONIO POCT-GLUCOSE [id number] 21:11:00 Test Item Value Reference Range Interpretation Comments POC-GLUCOSE METER 254 mg/dL 70-110 H : Notified RN/MD: (BANNER) (test code = TESTED AT [facility] 6720 1537) [facility], [address]: Crabber/Techni rose ID = [id number] for FERNIE APARICIO POCT-GLUCOSE [id number] 21:02:00 Test Item Value Reference Range Interpretation Comments POC-GLUCOSE METER 177 mg/dL 70-110 H : [facility] ([facility] code = [place], 1538) [address]: Crabber/Techni rose ID = [id number] for [place] LLIS, JUAN ANTONIO POCT-GLUCOSE [id number] 12:31:00 Test Item Value Reference Range Interpretation Comments POC-GLUCOSE METER 215 mg/dL 70-110 H : TESTED A T [facility] 6720 (MobileTag) (test code = [place], 1538) [address]: Crabber/Techni rose ID = [id number] for [place] LLIS, JUAN ANTONIO WOUND CULTURE + GRAM [id number] 10:10:00 Test Item Value Reference Interpretation Comments Range CULTURE (BEAKER) PROTEUS MIRABILIS A 1+ Pro teus (test [...] Sulfamethoxazole (test code = 47) CULTURE (BEAKER) METHICILLIN A 1+ Methicil lake (test code [...] gram negative (BEAKER) (test code = rods 874909) GRAM STAIN RESULT 2+ gram positive (BEAKER) (test code = rods 413233) GRAM STAIN RESULT <1+ gram negative (BEAKER) (test code = coccobacilli 529078) GRAM STAIN RESULT 2+ gram positive (BEAKER) (test code = cocci in pairs 079422) POCT-GLUCOSE [id number] 08:52:00 Test Item Value Reference Range Interpretation Comments POC-GLUCOSE METER 209 mg/dL 70-110 H : TESTED A T [facility] 6720 (BEAKER) (test code = [facility], 153) [address]: Crabber/Techni rose ID = [id number] for [place] LLIS, JUAN ANTONIO POCT-GLUCOSE [id number] 21:26:00 Test Item Value Reference Range Interpretation Comments POC-GLUCOSE METER 255 mg/dL 70-110 H : TESTED A T [facility] 6720 (BEAKER) (test code = [facility], 153) 68[address]: Crabber/Techni rose ID = [id number] for CR MICK TIA POCT-GLUCOSE [id number] 17:34:00 Test Item Value Reference Range Interpretation Comments POC-GLUCOSE METER 227 mg/dL 70-110 H : TESTED A T [facility] 6720 (BEAKER) (test code = [facility], 153) 57027: Crabber/Techni rose ID = [id number] for CHAVEZ LETI URBINA POCT-GLUCOSE [id number] 11:28:00 Test Item Value Reference Range Interpretation Comments POC-GLUCOSE METER 282 mg/dL 70-110 H : TESTED A T [facility] 6720 (BEAKER) (test code = [facility], [facility]) 439[address]: Crabber/Techni rose ID = [id number] for LETI SOUSA POCT-GLUCOSE [id number] 08:19:00 Test Item Value Reference Range Interpretation Comments POC-GLUCOSE METER 329 mg/dL 70-110 H : TESTED A T [facility] 6720 (BEAKER) (test code = [facility], [facility]8) 83991: Crabber/Techni rose ID = [id number] for AARON COTTRELL POCT-GLUCOSE [id number] 21:32:00 Test Item Value Reference Range Interpretation Comments POC-GLUCOSE METER 275 mg/dL 70-110 H : TESTED A T [facility] 6720 (MobileTag) (test code = [facility], [facility]) [address]: Crabber/Techni rose ID = [id number] for MG LANZA POCT-GLUCOSE [id number] 17:47:00 Test Item Value Reference Range Interpretation Comments POC-GLUCOSE METER 304 mg/dL 70-110 H : TESTED A T [facility] 6720 (BEAKER) (test code = [facility], [facility]) 55071: Crabber/Techni rose ID = [id number] for MA RIN, ERIN URINE [id number] 15:21:00 Test Item Value Reference Range Interpretation Comments CULTURE (MobileTag) A >100,000 co l/mL (test code = 1095) Beta-hemo lytic streptococcus g roup B, by serologic al grouping CULTURE (MobileTag) PROTEUS A 80-89,000 c ol/mL (test code [...] Tobramycin (test code R = 25) POCT-GLUCOSE [id number] 12:16:00 Test Item Value Reference Range Interpretation Comments POC-GLUCOSE METER 337 mg/dL 70-110 H : TESTED A T [facility] 6720 (BEAKER) (test code = [facility], 1538) 24782: Crabber/Techni rose ID = [id number] for SAM BLAIR, ERIN BASIC METABOLIC [id number] 10:39:00 Test Item Value Reference Range Interpretation [...] S NOT APPLICABLE FOR DIALYSIS PATIEN TS. Crabber ID - JANET FPOCT-GLUCOSE [id number] 08:29:00 Test Item Value Reference Range Interpretation Comments POC-GLUCOSE METER 395 mg/dL 70-110 H : TESTED A T [facility] 6720 (BEAKER) (test code = [facility], 1538) [address]64[address]: Crabber/Techni rose ID = [id number] for SAM BLAIR, ERIN CBC W/PLT COUNT & AUTO [id number] 06:40:00 Test Item Value Reference Range Interpretation [...] PERCENT (BEAKER) (test code = 2801) POCT-GLUCOSE [id number] 19:55:00 Test Item Value Reference Range Interpretation Comments POC-GLUCOSE METER 369 mg/dL 70-110 H : TESTED A T [facility] 6720 (BEAKER) (test code = [facility], 1538) 27[address]: Crabber/Techni rose ID = [id number] for MG LANZA POCT-GLUCOSE [id number] 16:45:00 Test Item Value Reference Range Interpretation Comments POC-GLUCOSE METER 272 mg/dL 70-110 H : TESTED A T [facility] 6720 (BEAKER) (test code = [facility], 1538) 98397: Crabber/Techni rose ID = [id number] for FRIEDA PALOMINO POCT-GLUCOSE [id number] 11:40:00 Test Item Value Reference Range Interpretation Comments POC-GLUCOSE METER 277 mg/dL 70-110 H : TESTED A T [facility] 6720 (BEAKER) (test code = [facility], 1538) 25[address]: Crabber/Techni rose ID = [id number] for FRIEDA PALMOINO BASIC METABOLIC [id number] 10:22:00 Test Item Value Reference Range Interpretation [...] S NOT APPLICABLE FOR DIALYSIS PATIEN TS. Crabber ID - NTPLIPID [id number] 10:17:00 Test Item Value Reference Range Interpretation [...] Borderline 130-159 High 160-189 Very High >=190 Crabber ID - NTP POCT-GLUCOSE [id number] 08:28:00 Test Item Value Reference Range Interpretation Comments POC-GLUCOSE METER 388 mg/dL 70-110 H : TESTED A T [facility] 6720 (BEAKER) (test code = [place], 1538) [address]: Crabber/Techni rose ID = [id number] for AARON COTTRELL HEMOGLOBIN [id number] 07:54:00 Test Item Value Reference Range Interpretation Comments HEMOGLOBIN A1C (BEAKER) (test code = 10.4 % 4.3-6.1 H 368) CBC W/PLT COUNT & AUTO [id number] 05:56:00 Test Item Value Reference Range Interpretation [...] PERCENT (BEAKER) (test code = 2801) POCT-GLUCOSE [id number] 23:47:00 Test Item Value Reference Range Interpretation Comments POC-GLUCOSE METER 359 mg/dL 70-110 H : Notified RN/MD: (BANNER) (test code = TESTED AT [place] [address] 1538) [facility], [address]: Crabber/Techni rose ID = [id number] for MICHELINE DOTY POCT-GLUCOSE [id number] 21:13:00 Test Item Value Reference Range Interpretation Comments POC-GLUCOSE METER 315 mg/dL 70-110 H : TESTED A T [facility] 67 (BANNER) ([facility] = [facility], 1538) [address]: Crabber/Techni rose ID = [id number] for Sm Ana morrison POCT-GLUCOSE [id number] 21:13:00 Test Item Value Reference Range Interpretation Comments POC-GLUCOSE METER 331 mg/dL 70-110 H : TESTED A T [facility] 6720 (BEAKER) (test code = [facility], 1538) 31783: Crabber/Techni rose ID = [id number] for RO JERRICA MCCLAIN POCT-GLUCOSE [id number] 10:30:00 Test Item Value Reference Range Interpretation Comments POC-GLUCOSE METER 341 mg/dL 70-110 H : TESTED A T [facility] 6720 (BEAKER) (test code = [facility], 1538) 18437: Crabber/Techni rose ID = [id number] for Sm prince, Ana CBC W/PLT COUNT & AUTO [id number] 08:48:00 Test Item Value Reference Range Interpretation [...] (BEAKER) (test code = Present 1371) HEMOGLOBIN [id number] 06:39:00 Test Item Value Reference Range Interpretation Comments HEMOGLOBIN A1C (BEAKER) (test code = 10.5 % 4.3-6.1 H 368) LIPID [id number] 04:57:00 Test Item Value Reference Range Interpretation [...] Very High >=190 Specimen moderately lipemicBASIC METABOLIC [id number] 04:56:00 Test Item Value Reference Range Interpretation [...] NOT APPLICABLE FOR DIALYSIS PATIEN TS. POCT-GLUCOSE [id number] 21:53:00 Test Item Value Reference Range Interpretation Comments POC-GLUCOSE METER > mg/dL 70-110 HH : Notified RN/MD: TESTED (BEAKER) (test code = AT [facility] 6720 [facility] 1538) [facility], [facility] 30: Crabber/Techni rose ID = [id number] for DESIRAE MENDOZA U/S, ABDOMINAL, [id number] 19:54:00Reason for exam:->Evaluation of KITCHEN DESIGNER shunt and for possible cyst or pseudocyst [...] habitus. CT scan would bemore sensitive. Signed: Óscar Santoyo MDReport Verified Date/Time: 07/22/2019 19:54:10 Reading Location: [facility] C013W Consult Reading Room POCT-GLUCOSE [id number] 19:34:00 Test Item Value Reference Range Interpretation Comments POC-GLUCOSE METER 474 mg/dL 70-110 HH : Notified RN/MD: (BEAKER) (test code = TESTED AT [facility] 7238 5321) [facility], [address]: Crabber/Techni rose ID = [id number] for MARILYNN MAO URINALYSIS W/ REFLEX URINE [id number] 17:48:00 Test Item Value Reference Range Interpretation [...] Moderate 517) SOURCE(BEAKER) (test code = 2795) CBC W/PLT COUNT & AUTO [id number] 17:38:00 Test Item Value Reference Range Interpretation [...] 3438) Received comment: User comments: Slide comments:POCT-GLUCOSE [id number] 16:27:00 Test Item Value Reference Range Interpretation Comments POC-GLUCOSE METER 424 mg/dL 70-110 HH : Notified RN/MD: (FELICIANO) (test code = TESTED AT [facility] 6720 1538) [facility], [address]: Crabber/Techni rose ID = [id number] for AK LUCIAN MARILYNN CT, BRAIN, WITHOUT [id number] 15:31:00FINAL REPORT CT, BRAIN, WITHOUT CONTRAST CLINICAL [...] Correlation recommended. Signed: JR Cali Robert MDReport Verified Date/Time: 07/22/2019 15:31:08 Reading Location: [facility] C013 Neuro Reading Room RAD, SHUNT [id number] 15:13:00Reason for exam:->concern for VPS malfunction FINAL REPORT RAD, SHUNT SERIES INDICATION: concern [...] portions of the catheter appear contiguous. Signed: Jacob Buchanan Verified Date/Time: 07/22/2019 15:13:54 Reading Location: [facility] Radiology Reading Room POCT-GLUCOSE METER 2019-07-22 11:38:00 Test Item Value Reference Range Interpretation Comments POC-GLUCOSE METER 394 mg/dL 70-110 H : [facility] (BEAKER) (test code = [place], 1538) [address]: Crabber/Techni rose ID = [id number] for MARILYNN MAO HEMOGLOBIN [id number] 09:15:00 Test Item Value Reference Range Interpretation Comments HEMOGLOBIN A1C (BEAKER) (test code = 10.4 % 4.3-6.1 H 368) TSH/FREE T4 IF [id number] 07:54:00 Test Item Value Reference Range Interpretation Comments THYROID STIMULATING HORMONE 1.40 uIU/mL 0.35-4.94 (BEAKER) (test code = 772) POCT-GLUCOSE [id number] 07:48:00 Test Item Value Reference Range Interpretation Comments POC-GLUCOSE METER > mg/dL 70-110 HH : Notified RN/MD: TESTED (BEAKER) (test code = AT [facility] 6720 [facility] 1537) [facility], 770 30: Crabber/Techni rose ID = [id number] for MARILYNN SMITH BASIC METABOLIC [id number] 07:44:00 Test Item Value Reference Range Interpretation [...] 697) EGFR (BEAKER) (test 94 mL/min/1.73 ESTIMA ODALYS GFR IS code = 1092) sq m NOT ACCURATE CREATININE CLEARANCE IN PREDICTING GLOMERULAR FILTRATION RATE . ESTIMATED GFR I S NOT APPLICABLE FOR DIALYSIS PATIEN TS. LIPID [id number] 07:34:00 Test Item Value Reference Range Interpretation [...] mg/dL 70-110 H : TESTED A T [facility] 6720 ([employer]) (test code = [place], 1538) [address]: Crabber/Techni rose ID = [id number] for CHERYLE LINDA RAD, FOOT, 2 VIEWS, [id number] 22:28:00Reason for exam:->osteomyletitis FINAL REPORT TECHNIQUE: Two [...] for osteomyelitis, recommend MRI with contrast. Signed: Andrew Salinas MDRmorisort Verified Date/Time: 07/21/2019 22:28:25 Reading Location: [address] Consult Reading Room RAD, FOOT, 2 VIEWS, [id number] 22:28:00Reason for exam:->osteomyletitsFINAL REPORT TECHNIQUE: Two views [...] for osteomyelitis, recommend MRI with contrast. Signed: Sahani, Andrew MDReport Verified Date/Time: 07/21/2019 22:28:25 Reading Location: [facility] C013W Consult Reading Room POCT-GLUCOSE METER 2019-07-21 21:04:00 Test Item Value Reference Range Interpretation Comments POC-GLUCOSE METER 430 mg/dL 70-110 HH : Notified RN/MD: (FELICIANO) (test code = TESTED AT [facility] 9185 3402) [facility], [address]: Crabber/Techni rose ID = [id number] for ALBERTO OLIVER ERTAPENEM:SUSC:PT:ISOLATE:ORDQN:[id number] 16:48:00Proteus mirabilisMemorial HermannURINE AND [id number] 16:48:00Negative (05/22/18 10:48 AM)[facility] [id number] 16:48:00Negative *NA*(05/22/18 10:48 AM)[facility] [id number] 16:48:00Negative *NA*(05/22/18 10:48 AM)[facility] [id number] 16:48:00Trace *ABN*(05/22/18 10:48 AM)[facility] [id number] 16:48:000.2[facility] STOOL 2018-05-22 16:48:00Large *ABN*(05/22/18 10:48 AM)[facility] STOOL 2018-05-22 16:48:00Negative (05/22/18 10:48 AM)[facility] STOOL 2018-05-22 16:48:00Negative (05/22/18 10:48 AM)[facility] STOOL 2018-05-22 16:48:00 Test Item Value Reference Range Interpretation Comments UA pH (test code = UA pH) 7.0 1 5.0-8.0 [facility] [id number] 16:48:00 Test Item Value Reference Range Interpretation Comments UA Spec Grav (test code = UA Spec 1.015 1 Grav) [facility] [id number] 16:48:00Yellow *NA*(05/22/18 10:48 AM) [facility] [id number] 16:48:00Clear (05/22/18 10:48 AM) [facility] [id number] 16:48:00None Seen (05/22/18 10:48 AM) [facility] [id number] 11:57:00Negative (05/22/18 5:57 AM) [facility] [id number] 11:57:00 Test Item Value Reference Range Interpretation Comments PTT (test code = PTT) 33.4 s 22.9-35.8 [facility]qgptboPOCQVMFARV9854-53-73 11:57:00 Test Item Value Reference Range Interpretation Comments PT (test code = PT) 13.7 s 12.0-14.7 [facility] CenterGbbhgcfMHNSSVHANO6441-94-66 11:57:00 Test Item Value Reference Range Interpretation Comments INR (test code = INR) 1.05 1 0.85-1.17 [facility] HospitalannCHEM [id number] 10:50:44553Izoxgbyl HermannCHEM PANEL 2018-05-22 10:50:019.4[facility] HermannCHEM [id number] 10:50:0128[facility] HermannCHEM [id number] 10:50:0114[facility] HermannCHEM [id number] 10:50:0189[facility] HermannCHEM [id number] 10:50:34244Zanozdrm HermannCHEM NJFVM1880-72-95 10:50:014.2[facility] HermannCHEM [id number] 10:50:83621 [facility] HermannCHEM [id number] 10:50:010.85[facility] HermannCHEM PANEL 2018-05-22 10:50:019.2[facility] QlcraooILKRXFBNSX6739-05-74 10:50:01 Test Item Value Reference Range Interpretation Comments ACT (TEG) Rapid (test code = ACT (TEG) 136 s 86-118 Rapid) [facility] CenterNtgwuqxLPAKJHXAQD8239-30-51 10:50:01 Test Item Value Reference Range Interpretation Comments Split Point Rapid (test code = Split 0.6 min Point Rapid) [facility] HospitalUjxgudkOINZFTEKGB7014-96-38 10:50:01 Test Item Value Reference Range Interpretation Comments R-time Rapid (test code = R-time 0.9 min 0.4-0.7 Rapid) [facility] HospitalGhbsnqgGUEIXSXZTH5022-81-59 10:50:01 Test Item Value Reference Range Interpretation Comments K-time Rapid (test code = K-time 1.4 min 0.6-2.3 Rapid) [facility] HospitalVjweaevBHMYRYKTNK4545-62-38 10:50:01 Test Item Value Reference Range Interpretation Comments Angle Rapid (test code = Angle 71 degrees 64-80 Rapid) [facility] HospitalRqzxuabMIRVAOMBMH8191-58-12 10:50:0112.7[facility] HermannHEMATOLOGY 2018-05-22 10:50:01 Test Item Value Reference Range Interpretation Comments Max Amplitude Rapid (test code = Max 72 mm 52-71 Amplitude Rapid) [facility] HospitalDnqjswsXQBZMUVPJA5520-90-25 10:50:010.1[facility] HermannHEMATOLOGY 2018-05-22 10:50:44545Wqyphvwt GwtbnguPDGFCLTIQQ0023-09-80 10:50:017.8[facility]orial PspkinkELOYZEUFTQ5567-81-17 10:50:01 Test Item Value Reference Range Interpretation Comments MCH (test code = MCH) 27.4 pg 27.0-31.0 [facility] HospitalHzbdqnbVRHMOHMDVX5574-03-57 10:50:0180.7[facility] HermannHEMATOLOGY 2018-05-22 10:50:0134.0[facility] LyytmipVVHDHCFOJS0881-95-91 10:50:0118.9[facility]orial MweqwueBUQKCCCFUJ1644-88-40 10:50:0143.3[facility]orial FlkmlpzAEBWGHMUYO7742-35-86 10:50:019.3[facility]orial IzfcpyxEEXSTVIQUD8546-21-71 10:50:0114.7[facility] KHQXSITZBY9751-49-41 10:50:015.36[facility] WhysiphCOMUHOWNYN6153-67-96 10:50:01 0.2Memorial AaamtgdZDOTNJTMQH7317-71-59 10:50:010.1[facility] HermannHEMATOLOGY 2018-05-22 10:50:011.8Memorial YaywmemMHRVXBXOZK8877-45-23 10:50:010.9[facility]orial FbcgprkRRUTCAUQNP7354-52-19 10:50:016.3[facility] SzcnytdUWKMRELSFP8920-98-03 10:50:012.0[facility]orial TazjeojCQZYRFGYFI9994-17-80 10:50:0167.4[facility] HZITWOXTSW1110-05-72 10:50:0119.9[facility]orial EoqnckyQZSYIWRWUI2887-38-43 10:50:01 1.0[facility]orial WqfcsgxIRCJBWPQLO5981-31-83 10:50:019.7[facility] HermannCHEM PANEL 2017-11-19 05:42:00 Test Item Value Reference Range Interpretation Comments B/C Ratio (test code = B/C Ratio) 17 1 6-25 [facility] HermannCHEM QJWEJ3688-03-24 05:42:004.3[facility] HermannCHEM PANEL 2017-11-19 05:42:00 Test Item Value Reference Range Interpretation Comments A/G Ratio (test code = A/G Ratio) 0.7 1 0.7-1.6 [facility] HermannCHEM [id number] 05:42:0014.4[facility] HermannCHEM PANEL 2017-11-19 05:42:55406Gnyldost HermannCHEM LIVYP8944-38-46 05:42:0076[facility] HermannCHEM QLPWA9746-32-88 05:42:0035Mem[facility] HermannCHEM LUZDQ7431-12-21 05:42:002.8[facility] HermannCHEM [id number] 05:42:007.1[facility] HermannCHEM SWDYI6927-13-04 05:42:008.7[facility] HermannCHEM NHMZF3493-38-21 05:42:0018 [facility] HermannCHEM MPIIM7648-84-91 05:42:000.3[facility] HermannCHEM PANEL 2017-11-19 05:42:004.4[facility] HermannCHEM FKERB6477-43-15 05:42:44420Pbieusec HermannCHEM IKFUZ8292-28-97 05:42:0023Mem[facility] HermannCHEM ETUKK5969-94-18 05:42:78033Ajbeiykk HermannCHEM ACFKC9479-77-40 05:42:001.01[facility] HermannCHEM MUCGC3103-12-03 05:42:0017Mem[facility] HermannCHEM RMYVX4385-21-13 05:42:93866 [facility] TfrgzpmLLGSQLZIJJ6100-29-19 05:42:000.6[facility] HermannHEMATOLOGY 2017-11-19 05:42:004.8Memorial DjumkduAVYXQEYOPL1275-80-65 05:42:000.7Memorial RqzfymgBQQUMEIJCO7082-08-34 05:42:001.9Memorial SwvjzdcIOVCJOOCHP5094-48-32 05:42:009.4Memorial RsolzuvQVAOSTDTLK7263-97-14 05:42:000.2[facility] Jason XHQBWBJPTF1780-71-94 05:42:002.9Memorial SxdxgqvDVYAHJAWOG9787-47-04 05:42:00 62.2[facility] KfxtrviPLFRKBOOTG3338-25-20 05:42:0024.9[facility]annHEMATOLOGY 2017-11-19 05:42:00 Test Item Value Reference Range Interpretation Comments MCH (test code = MCH) 27.5 pg 27.0-31.0 [facility] XcihbbzTOJTDJVATG6181-41-43 05:42:0085.3[facility]annHEMATOLOGY 2017-11-19 05:42:0043.9[facility] XpgcqywNYKFGQOQFM8269-44-58 05:42:0014.2[facility] IuxzsveETYHBNHZBE4874-06-11 05:42:007.7[facility] EoeujbgVASVISQJZR2937-82-64 05:42:005.15[facility] HlrmutpUMJNMFTCOD8140-03-24 05:42:008.4[facility] RCZWHTIHYZ2041-01-63 05:42:0032.3[facility] BonshovIUUGDESFOJ3947-20-38 05:42:00 17.3[facility] FnjypkmWYXLFLJAEA8357-57-82 05:42:77435Mylqzxxw HermannCHEM PANEL 2017-11-18 09:36:004.4[facility] HermannCHEM XVSQU6324-71-23 09:36:00 Test Item Value Reference Range Interpretation Comments A/G Ratio (test code = A/G Ratio) 0.6 1 0.7-1.6 [facility]annCHE[facility] QLXVW7730-36-39 09:36:00 Test Item Value Reference Range Interpretation Comments B/C Ratio (test code = B/C Ratio) 17 1 6-25 [facility]annCHE[facility] UKEPZ5775-45-48 09:36:0011.3[facility] HermannCHEM PANEL 2017-11-18 09:36:29535Lrcyquub HermannCHEM JVZGL0732-33-94 09:36:000.84[facility]annCHEM RVVEX7785-52-21 09:36:96278Iwqlxofm HermannCHEM HFCXB5503-20-98 09:36:0099[facility]annCHEM HTKRS3314-87-32 09:36:0014[facility]annCHEM QWLJB3001-63-25 09:36:0079[facility]annCHEM OVIVK5792-28-91 09:36:000.3 [facility]annCHE[facility] MHVLN4664-29-97 09:36:0014[facility]annCHEM PANEL 2017-11-18 09:36:0043[facility]annCHEM UIOQK8622-56-34 09:36:007.1[facility]annCHEM YBRZP1685-52-72 09:36:002.7[facility]annCHEM ENGQF7611-63-06 09:36:009.2[facility]annCHEM VVEVO2073-29-63 09:36:0021[facility]annCHEM GULAT4672-21-37 09:36:004.3[facility]annCHEM WLCXL7461-57-34 09:36:44013 [facility] OwuhibfDQQMUJLJJH4219-58-63 09:36:0032.5[facility]annHEMATOLOGY 2017-11-18 09:36:0017.5[facility] OosvizbONRUCCQJMX5234-78-37 09:36:99757Ssedcame PihbjlzBMRUVZYBQE4971-57-82 09:36:008.5[facility] MalwvxmWRSXIJCBLF2972-85-60 09:36:006.6[facility] VmvwukyAQKRACEOEI2681-53-04 09:36:005.17[facility] DLPHNKYIQA2009-68-86 09:36:0086.1[facility] HejbbmfCNGQTLRSNH5748-88-53 09:36:00 44.5[facility] JqyjsreUMISTANDIY7919-50-72 09:36:00 Test Item Value Reference Range Interpretation Comments MCH (test code = MCH) 28.0 pg 27.0-31.0 [facility] FlbifwnHZNIFMDTXZ8855-29-20 09:36:0014.5[facility] HermannHEMATOLOGY 2017-11-18 09:36:001.7[facility] ClzqhufVOXRLFCXBW5141-56-84 09:36:000.7[facility] QjcmpnkNGBYYFNZIB4254-21-06 09:36:000.2[facility] IsqwqgzSDFNAXLPJY3685-48-14 09:36:0026.1[facility] PoyxhqmAKPRECNORK1993-08-09 09:36:0059.3[facility] IZIWKXKNMW7185-61-38 09:36:000.8[facility] DeklcwiZEYBTENGOL4476-65-58 09:36:00 10.5[facility] WexpxzzQBASJFNRGL5784-60-81 09:36:003.3[facility] HermannHEMATOLOGY 2017-11-18 09:36:003.9[facility] TuskxspPZXUDNHSMH8247-99-92 21:02:009.1[facility] HermannCHEM MWEJQ5004-26-13 07:07:0074[facility]annCHEM FFXCQ1094-64-43 07:07:0012[facility] HermannCHEM EXOUF3960-28-35 07:07:000.75[facility] HermannCHEM SGTKZ3270-64-09 07:07:24305Wmwazsea HermannCHEM QFEVT3504-63-13 07:07:002.9 [facility]annCHEM GJDDW7943-68-70 07:07:004.4[facility]annCHEM PANEL 2017-11-17 07:07:00 Test Item Value Reference Range Interpretation Comments A/G Ratio (test code = A/G Ratio) 0.7 1 0.7-1.6 [facility]annCHEM DZIEX3233-34-07 07:07:000.4[facility] HermannCHEM PANEL 2017-11-17 07:07:0071[facility]annCHEM IJOFV3032-66-00 07:07:0015[facility]annCHEM HMDGE6203-96-47 07:07:0028[facility]annCHEM MKIHL5712-83-69 07:07:004.4[facility] HermannCHEM CVDYA3301-70-43 07:07:76280Owckxbon HermannCHEM MYBMH3505-43-94 07:07:0025[facility]annCHEM QCKYQ8793-37-33 07:07:56163 [facility]annCHEM DBOCO4578-07-29 07:07:00 Test Item Value Reference Range Interpretation Comments B/C Ratio (test code = B/C Ratio) 16 1 6-25 [facility]annCHEM KXXUI3599-74-86 07:07:008.7[facility] HermannCHEM PANEL 2017-11-17 07:07:0012.4[facility]annCHEM VRZIP0582-95-65 07:07:007.3[facility] ElcezqfQOOGGYCWAS3669-77-82 07:07:34747Sdqvkhra AjvzshgZXULVZHHQD5544-07-90 07:07:008.7[facility] LnwiqpeSAEJULJFUZ5536-21-99 07:07:006.9[facility] NSKGLTUGIM7212-08-76 07:07:005.30[facility] LcspnkfKCABUWHKNW8124-29-46 07:07:00 32.8[facility] SgfbapsVPWPDZBPLC3017-31-39 07:07:00 Test Item Value Reference Range Interpretation Comments MCH (test code = MCH) 27.9 pg 27.0-31.0 [facility] OfauvubALEVYRCSJA8527-69-81 07:07:0014.8[facility] HermannHEMATOLOGY 2017-11-17 07:07:0085.0[facility] YabtjdfRRYZLNIYCH9057-26-91 07:07:0045.1[facility] XjkovdsECTYPBKPUE8223-67-41 07:07:0017.5[facility] WjajoazWXHDFMJKPM3390-50-11 07:07:000.2[facility] TwovkdvHRLPALUUBG8688-73-74 07:07:002.0[facility] JJLELSKNSL9543-83-74 07:07:000.7[facility] WkbeltaPNIRVTYKFW0777-74-60 07:07:002.4 [facility] IvrvkrcRUUPXXUEJV8661-82-88 07:07:000.6[facility] HermannHEMATOLOGY 2017-11-17 07:07:004.0[facility] UqyvmzzTZYPEFUZHI3062-27-96 07:07:0010.4[facility] UccpsheGTMNBXZSDN7207-46-83 07:07:00Normal (11/17/17 2:07 AM)[facility] QTAUJWNRRC0835-65-20 07:07:0058.1[facility] CmbztbgMMKCMBGCTQ5896-26-48 07:07:00 Normal (11/17/17 2:07 AM)[facility] MjuckbcJVPDTMVOKM2349-80-41 07:07:0028.5[facility] LlmqzqjQXXPCVOYAZ2169-27-33 16:07:000.1[facility] HqhtsleVBSUUWEWDL7962-11-48 16:07:00Moderate *ABN*(11/16/17 11:07 AM)[facility] YdgttywXGIMRESPDW2118-67-44 06:43:0022.3[facility] HermannCHEM QOCUU5380-63-84 11:45:002.3[facility] HermannCHEM TTBAH6957-07-80 11:45:003.5[facility] HsjranxHHDNVKVKEO9367-85-54 11:45:00 Test Item Value Reference Range Interpretation Comments PT (test code = PT) 14.0 s 12.0-14.7 [facility] OybaptrVMZOXNQJKR4566-40-56 11:45:00 Test Item Value Reference Range Interpretation Comments PTT (test code = PTT) 37.6 s 22.9-35.8 [facility] RnsicsgMIFEHWHENS5528-01-47 11:45:00 Test Item Value Reference Range Interpretation Comments INR (test code = INR) 1.08 1 0.85-1.17 [facility] IkndywkGSUPGQCURE8014-53-03 11:45:0013.1[facility] HermannIMMUNOLOGY 2017-11-15 11:45:0025.2[facility] HermannCHEM UYKRM2244-87-12 03:06:000.9[facility] JnnmgosNXQKFWERZE0061-51-89 03:06:005[facility] TbjixyvYJHGCFCWQK6543-06-49 03:06:0015.8[facility] PvtmfhuFYUVWYFGBH8780-01-71 00:44:00 Test Item Value Reference Range Interpretation Comments PT (test code = PT) 13.0 s 12.0-14.7 [facility] KkdthlxRLFUESGEFW1936-34-74 00:44:00 Test Item Value Reference Range Interpretation Comments INR (test code = INR) 0.98 1 0.85-1.17 [facility] MzzsloaMMTKIJJPBJ4691-28-33 00:44:00 Test Item Value Reference Range Interpretation Comments PTT (test code = PTT) 33.2 s 22.9-35.8 [facility] ZENZNWN8361-04-95 23:51:00Negative (11/14/17 6:51 PM) [facility] UHWTU5070-12-90 23:35:000.2[facility] AND BVPVA5432-37-63 23:35:00Negative (11/14/17 6:35 PM)[facility] AND STOOL [...] Spec 1.020 1 Grav) [facility] ZKDSY1024-73-01 23:35:00 Test Item Value Reference Range Interpretation Comments UA pH (test code = UA pH) 6.0 1 5.0-8.0 [facility] NKMPZ4602-14-91 23:35:00Yellow *NA*(11/14/17 6:35 PM) [facility] IEHTF4267-87-44 23:35:00Trace *ABN*(11/14/17 6:35 PM) [facility] ODHSA8212-52-01 23:35:00Slight Cloudy (11/14/17 6:35 PM) [facility] YLKIC2467-44-77 23:35:000-2 (11/14/17 6:35 PM)[facility] ArbbeleHHWFSJCAVR7401-46-58 23:20:000.1[facility] PfhnovcCKWXECLMCY7478-41-80 23:20:00Normal (11/14/17 6:20 PM)[facility] HermannBLOOD DODYYFS5822-94-49 16:22:00 Test Item Value Reference Range Interpretation Comments CULTURE (BEAKER) (test No growth in 5 days code = 1095) BLOOD WDYLSDR7760-77-46 16:22:00 Test Item Value Reference Range Interpretation [...] Normal 762) CBC W/PLT COUNT & AUTO HYWMXLMOOPNH4384-41-46 22:28:00 Test Item Value Reference Range Interpretation [...] K/ L 0.00-0.20 (test code = 417) 0.000.520.000.000.000.00[facility] METABOLIC OLMOG8757-82-33 11:11:00 Test Item Value Reference Range Interpretation [...] NOT APPLICABLE FOR DIALYSIS PATIEN TS. URINE OLUUGAO8781-61-44 09:56:00 Test Item Value Reference Range Interpretation Comments CULTURE (BEAKER) (test <10,000 col/mL skin code = 1095) marilee COMPREHENSIVE METABOLIC [id number] 08:49:00 Test Item Value Reference Range Interpretation [...] PATIEN TS. CBC W/PLT COUNT & AUTO DTHEFNDULQQM3707-40-45 08:46:00 Test Item Value Reference Range Interpretation [...] 0.00-0.20 (test code = 417) 0.00URINALYSIS W/ JMIPPBDYGMD1809-78-04 20:36:00 Test Item Value Reference Range Interpretation [...] SOURCE(BEAKER) (test code = 2795) BASIC METABOLIC [id number] 17:00:00 Test Item Value Reference Range Interpretation [...] Specimen slightly ictericCBC W/PLT COUNT & AUTO OCKYFAJOBVIE1380-58-28 12:18:00 Test Item Value Reference Range Interpretation [...]
--- NOTE | 2020-07-28 14:02 | EDPHYS ---
Physician Documentation [facility] Name: Roland Feldman Jr Age: 35 yrs Sex: Male : 1985 Arrival Date: 07/28/2020 Time: 11:27 Bed 26 Private MD: ED Physician Prince Warner HPI: 07/28 13:04 This 35 yrs old Black Male presents to ER via Wheelchair with complaints of Problem kdr With Urinary Catheter. 13:04 This 35 yrs old Black Male presents to ER via Wheelchair with complaints of Problem kdr With Urinary Catheter. 13:04 The patient presents with a Alcantara catheter problem, is leaking urine. Onset: The kdr symptoms/episode began/occurred gradually, 1 week(s) ago. Modifying factors: The symptoms are alleviated by nothing, the symptoms are aggravated by nothing. Associated signs and symptoms: The patient has no apparent associated signs or symptoms. Severity of symptoms: At their worst the symptoms were mild, in the emergency department the symptoms are unchanged. The patient has experienced similar episodes in the past, multiple times. The patient has not recently seen a physician. last Alcantara replacement was about a month ago and is now leaking. 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 - Social history:: Smoking status: Patient reports the use of cigarette tobacco products, smokes one-half pack cigarettes per day. ROS: 13:04 Constitutional: Negative for fever, chills, and weight loss. kdr 13:04 Abdomen/GI: Positive for suprapubic catheter in place with urine smell and dampness around the site. Exam: 13:04 Constitutional: This is a well developed, well nourished patient who is awake, alert, kdr and in no acute distress. 13:04 Abdomen/GI: Inspection: obese Bowel sounds: Palpation: soft, nontender, There is a suprapubic Alcantara in place as described above in the ROS. No evidence of infection. Vital Signs: 11:48 BP 124 / 81; Pulse 93; Resp 16 S; Temp 98.6(O); Pulse Ox 97% on R/A; Weight 172.37 kg ca1 (R); Height 4 ft. 11 in. (149.86 cm) (R); Pain 6/10; 14:11 BP 114 / 80; Pulse 89; Resp 16 S; Pulse Ox 97% on R/A; jd3 11:48 Body Mass Index 76.75 (172.37 kg, 149.86 cm) ca1 MDM: 14:01 Patient medically screened. kdr 14:25 Data reviewed: vital signs, nurses notes. Counseling: I had a detailed discussion with kdr the patient and/or guardian regarding: the historical points, exam findings, and any diagnostic results supporting the discharge/admit diagnosis, the need for outpatient follow up. ED course: We were unable to provide resolution of the problem - did not have proper Alcantara availabe. Administered Medications: No medications were administered Disposition: 07/28/20 14:01 Discharged to Home. Impression: Leaking Alcantara. - Condition is Stable. - Discharge Instructions: Alcantara Catheter Care, Adult, Tbsv-kl-Uwtd. - Blank Diagnosis Outline, Medication Reconciliation Form, Thank You Letter form. - Follow up: Private Physician; When: 2 - 3 days; Reason: If symptoms return, Further diagnostic work-up, Recheck today's complaints, Continuance of care, Re-evaluation by your physician. - Problem is new. - Symptoms are unchanged. Signatures: Prince Warner MD MD kdr José Luis Mason RN RN jd3 Monet Tate RN RN ca1 Corrections: (The following items were deleted from the chart) 14:12 14:01 07/28/2020 14:01 Discharged to Home. Impression: Leaking Alcantara. Condition is jd3 Stable. Forms are Medication Reconciliation Form, Thank You Letter, Antibiotic Education, Prescription Opioid Use. Follow up: Private Physician; When: 2 - 3 days; Reason: If symptoms return, Further diagnostic work-up, Recheck today's complaints, Continuance of care, Re-evaluation by your physician. Problem is new. Symptoms are unchanged. kdr
--- NOTE | 2020-07-28 14:02 | ER ---
Nurse's Notes [facility] Name: Roland Feldman Jr Age: 35 yrs Sex: Male : 1985 Arrival Date: 07/28/2020 Time: 11:27 Bed 26 Private MD: Diagnosis: Leaking Alcantara Presentation: 07/28 11:48 Chief complaint: Patient states: suprapubic catheter leaking x 2 days. Low back pain ca1 since Saturday. Coronavirus screen: Client denies travel out of the [place] in the last 14 days. At this time, the client does not indicate any symptoms associated with coronavirus-19. Ebola Screen: Patient negative for fever greater than or equal to 101.5 degrees Fahrenheit, and additional compatible Ebola Virus Disease symptoms Patient denies exposure to infectious person. Patient denies travel to an Ebola-affected area in the 21 days before illness onset. No symptoms or risks identified at this time. Initial Sepsis Screen: Does the patient meet any 2 criteria? No. Patient's initial sepsis screen is negative. Does the patient have a suspected source of infection? No. Patient's initial sepsis screen is negative. Risk Assessment: Do you want to hurt yourself or someone else? Patient reports no desire to harm self or others. Onset of symptoms was July 28, 2020. 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 - Social history:: Smoking status: Patient reports the use of cigarette tobacco products, smokes one-half pack cigarettes per day. Screenin:32 Abuse screen: Denies threats or abuse. Nutritional screening: No deficits noted. jd3 Tuberculosis screening: No symptoms or risk factors identified. Fall Risk Ambulatory Aid- None/Bed Rest/Nurse Assist (0 pts). Mental Status- Oriented to own ability (0 pts). Total Smith Fall Scale indicates No Risk (0-24 pts). Assessment: 12:31 General: Appears in no apparent distress. comfortable, Behavior is calm, cooperative, jd3 appropriate for age. Pain: Denies pain. Neuro: Level of Consciousness is awake, alert, obeys commands, Oriented to person, place, time, situation. Cardiovascular: Denies chest pain, Capillary refill < 3 seconds Patient's skin is warm and dry. Respiratory: Airway is patent Respiratory effort is even, unlabored, Respiratory pattern is regular, symmetrical, Denies cough, shortness of breath. GI: No signs and/or symptoms were reported involving the gastrointestinal system. : Reports leaking of suprapubic catheter. EENT: No signs and/or symptoms were reported regarding the EENT system. Derm: Skin is intact, Skin is dry, Skin is normal, Skin temperature is warm. 13:02 Reassessment: Patient appears in no apparent distress at this time. Patient and/or jd3 family updated on plan of care and expected duration. Pain level reassessed. Patient is alert, oriented x 3, equal unlabored respirations, skin warm/dry/pink. awaiting suprapubic cath from materials. 14:11 Reassessment: Patient appears in no apparent distress at this time. Patient and/or jd3 family updated on plan of care and expected duration. Pain level reassessed. Patient is alert, oriented x 3, equal unlabored respirations, skin warm/dry/pink. pt discharged to front of ER. pt denies pain or discomfort at this time. Vital Signs: 11:48 BP 124 / 81; Pulse 93; Resp 16 S; Temp 98.6(O); Pulse Ox 97% on R/A; Weight 172.37 kg ca1 (R); Height 4 ft. 11 in. (149.86 cm) (R); Pain 6/10; 14:11 BP 114 / 80; Pulse 89; Resp 16 S; Pulse Ox 97% on R/A; jd3 11:48 Body Mass Index 76.75 (172.37 kg, 149.86 cm) ca1 ED Course: 11:27 Patient arrived in ED. ag5 11:52 Triage completed. ca1 11:54 Arm band placed on right wrist. ca1 12:27 Prince Warner MD is Attending Physician. kdr 12:29 José Luis Mason, RN is Primary Nurse. jd3 12:33 Patient has correct armband on for positive identification. Bed in low position. Call jd3 light in reach. Pulse ox on. NIBP on. 14:12 No provider procedures requiring assistance completed. Patient did not have IV access jd3 during this emergency room visit. Administered Medications: No medications were administered Outcome: 14:01 Discharge ordered by . kdr 14:12 Discharged to home with family. jd3 14:12 Condition: stable 14:12 Discharge instructions given to patient, Instructed on discharge instructions, follow up and referral plans. Demonstrated understanding of instructions, follow-up care. 14:12 Patient left the ED. jd3 Signatures: Prince Warner MD MD kdr Kathy Hoyos RN RN José Luis Mason, NAIF RN jMonet Gastelum RN RN ca1 Cassandra Billy ag5
[2020-07-28 14:24] VITALS: TEMP 98.6; O2SAT 97
[2020-07-28 14:25] VITALS: BP 114/80
== END 2020-07-28 14:12 | disposition home or self-care (01) ==
LOC: ER 11:22
DX: T83.038A Leakage of other urinary catheter, initial encounter (principal); I10 Essential (primary) hypertension; F17.210 Nicotine dependence, cigarettes, uncomplicated; G80.9 Cerebral palsy, unspecified; Q05.9 Spina bifida, unspecified; Z88.0 Allergy status to penicillin; Z88.1 Allergy status to other antibiotic agents; Z88.4 Allergy status to anesthetic agent; Z88.5 Allergy status to narcotic agent; Z88.8 Allergy status to other drugs, medicaments and biological substances
CPT/HCPCS: 99283

== ENCOUNTER 2020-07-29 15:17 | Emergency (ER) | payer MEDICAID, OTHER ==
--- OUTSIDE RECORDS SUMMARY | 2020-07-29 15:19 | XMS REPORT | Clinical Summary ---
:1985 Author Organization [facility] Address [address] [place] [address] Care Team Providers Name Role Phone Sharpless [...] 2 diabetes mellitus with hyperglycemia, unspecified whether manager terminal insulin use ([facility]); MD Enio Diabetes mellitus, new onset ([facility]); Veronica Salinas, Type 2 diabete s mellitus treated with insulin ([facility]); Proteus infecti on; ESBL (extended spectrum beta-lactamase) producing bacteria infection; Polymicrobial b acterial infection; Pyelonephritis; Spina bifida of sacral region with hydrocephalus ([facility]); Decubitus ulcer of ankle, right, unstageable (HCC); Pressure ulcer of right heel, stage 3 ([facility]); Pressure ulcer of left heel, stage 2 ([facility]); Eschar of heel after 07/29/2019 Social History Tobacco Use Types Packs/Day Years Used Date Current Every Day Smoker Cigarettes 0.5 Tobacco Cessation: Ready to Quit: No Sex Assigned at Date Recorded Not on file Last Filed Vital Signs Vital Sign Reading Time Taken Comments Blood Pressure 136/78 07/30/2019 12:58 PM CONSTRUCTION AND 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 Pulse 96 07/30/2019 12:58 PM CONSTRUCTION AND 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 Temperature 35.8 C (96.4 F) 07/30/2019 12:58 PM CONSTRUCTION AND 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 Respiratory Rate 18 07/30/2019 12:58 PM CONSTRUCTION AND 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 Oxygen Saturation 96% 07/30/2019 12:58 PM CONSTRUCTION AND 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 Inhaled Oxygen Concentration - - Weight - [...] RHYTHM STRIP - SCAN 08/07/2019 2:11 PM CONSTRUCTION AND 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 RHYTHM STRIP - SCAN 07/31/2019 3:32 PM CONSTRUCTION AND 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 POCT-GLUCOSE METER Routine 07/30/2019 12:52 PM Re sults for this CONSTRUCTION AND 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 procedure are i n the results section. POCT-GLUCOSE METER Routine 07/30/2019 9:03 AM Re sults for this CONSTRUCTION AND 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 procedure are i n the results section. POCT-GLUCOSE METER Routine 07/29/2019 8:45 PM Re sults for this CONSTRUCTION AND 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 procedure are i n the results section. POCT-GLUCOSE METER Routine 07/29/2019 4:35 PM Re sults for this CONSTRUCTION AND 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 procedure are i n the results section. POCT-GLUCOSE METER Routine 07/29/2019 12:08 PM Re sults for this CONSTRUCTION AND 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 procedure are i n the results section. POCT-GLUCOSE METER Routine 07/29/2019 8:35 AM Re sults for this CONSTRUCTION AND 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 procedure are i n the results section. after 07/29/2019 Results RHYTHM STRIP - SCAN (08/07/2019 2:11 PM CONSTRUCTION AND 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)Only the most recent of2 results within the time period is included. Narrative Performed At This result has an attachment that is no t available. POC-Glucose meter (07/30/2019 12:52 PM CONSTRUCTION AND 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)Only the most recent of6 results within the time period is included. POC-Glucose Meter 140 (H)Comment: : 70 - 110 mg/dL DEDE FRANCISCO TESTED AT [address], [address]: Blade Grader Operator/Technici an ID = [id number] for AARON VALENTIN Specimen Blood Performing Organization Address City/State/Zipcode Phone Number [facility] [address] [address] CENTER after 07/29/2019 Additional Health Concerns Infection Onset Date Last Indicated Resolved Time MRSA (C) 07/26/2019 07/26/2019 Insurance Payer Benefit Plan Subscriber ID Effective Dates Phone Address Type / Group MEDICAID - [facility] [employer] [id number] 2019-Reese Johnson edicaid MEDICAID [place] STAR PLAN [facility] Advance Directives For more information, please contact: [phone] Code Status Date Activated Date Inactivated Comments Full Code 07/21/2019 9:03 PM 07/30/2019 4:44 PM This code status was determined by: Patient Full Code 12/23/2016 1:36 AM 12/25/2016 8:43 PM This code status was determined by: Patient
--- OUTSIDE RECORDS SUMMARY | 2020-07-29 15:20 | XMS REPORT | Continuity of Care Document ---
:1985 Author Organization [employer] Care Team Providers Name Role Phone [employer] Unavailable Un available Problems Problem Status Onset Classification Date Comments Sourc e Date Reported Headache 05/22/20 12/09/[address] HEADACHE Active 05/22/[address] SHUNT MALFUNCTION Active 11/15/[address] ACUTE HEADACHE Active 11/15/[address] Acute pain Active Problem 03/06/2019 Mischer (finding) [facility] Asthma (disorder) Resolved Problem 03/06/2019 M ischer Neuro,[facility] Bronchitis Resolved Problem 03/06/2019 Mischer (disorder) [facility] Cerebral palsy Resolved Problem 03/06/2019 Misc her (disorder) [facility] Headache Active Problem 03/06/2019 Mischer (finding) [facility] Hydrocephalus Resolved Problem 03/06/2019 Misch er (disorder) [facility] Osteomyelitis Resolved Problem 03/06/2019 Misch er (disorder) [facility] Spina bifida, 12/09/2018 [facility] Nausea with 12/09/2018 Vinny mancilla vomiting, [facility] Diplopia 12/09/2018 [facility] Cerebral palsy, 12/09/2018 [facility] 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 Nicotine 12/09/2018 [facility] dependence, Medical cigarettes, Center uncomplicated Presence of 12/09/2018 Vinny s cerebrospinal Medica l fluid drainage Cente r device Allergy status to 12/09/2018 [facility] [place] other antibiotic Med ical agents status Center Allergy status to 12/09/2018 [facility] [place] other drugs, Medical medicaments and Cent er biological substances status Allergy status to 12/09/2018 [facility] [place] narcotic agent Medic al status Center HEADACHE Active [facility] Medications Medication Details Route Status Patient Ordering Order Source Instructions Provider Date normal saline 1,000 mL, Rate: Inactive [facility] 0.9% IV 1,000 100 ml/hr, 2018 Medical mL Infuse over: 10 Center hr, Route: IV, Dosing Weight 131.818 kg, Total Volume: 1,000, Start date: 05/22/18 5:04:00 CLERICAL ADVISER, Duration: 30 day, Stop date: 06/21/18 5:03:00 CLERICAL ADVISER, 2.4, m2 Magnesium Notes: WASTE: Inactive [facility] s Sulfate F/P - Sink; E - 2018 [facility] Trash [place] Bin Isolyte S Notes: (Same Inactive [place] PH-7.4 (Bolus) as: Isolyte S 2017 Med ical IV PH 7.4) Center Phenergan 12.5 mg, 0.5 Inactive [place] mL, Route: 2018 Medical IVPB, Drug Center form: INJ, ONCE, Dosing Weight 131.818, kg, Priority: STAT, Start date: 05/22/18 4:35:00 CLERICAL ADVISER, Stop date: 05/22/18 4:35:00 CLERICAL ADVISER Docusate Sodium 100 mg = 1 cap, Active [place] 100 MG Oral PO, BID, 0 2018 Medical Capsule Refill(s) [place] Zosyn 0 Refill(s) Active [place] 2018 Medical [place] celecoxib 200 200 mg = 1 cap, Active [place] mg oral capsule PO, BID, 0 2018 Medic al Refill(s) [place] ascorbic acid 500 mg = 1 tab, Active [facility] PO, BID, 0 2018 Medical Refill(s) [place] acetaminophen 1,000 mg = 2 [place] 500 mg oral tab, PO, 2018 Medical tablet Q6Hnow, 0 Center Refill(s) Oxycodone 5 mg = 1 tab, Active [facility] Hydrochloride 5 PO, Q4H, PRN 2018 Med ical MG Oral Tablet Pain Score 4-6, C enter 0 Refill(s) zinc sulfate 220 mg = 1 cap, Active [place] 220 mg oral PO, Daily, 0 2018 Medical capsule Refill(s) [place] multivitamin 1 tab, PO, Active [facility] Daily, 0 2018 Medical Refill(s) Center [...] No Longer [place] as: Ativan) Active 2018 [facility] Trazodone Notes: (Same No Longer [...] Same as [place] Dilaudid 2018 [facility] Tramadol Notes: Not to No [...] Center Beneprotein 7 Notes: (Same No Longer [facility] gm pkt as: Active 2017 Medical Beneprotein) [place] Acetaminophen 1 tab, PO, TID, No Longer [place] 325 MG / 0 Refill(s) Active 2018 Medical Oxycodone [place] Hydrochloride 10 MG Oral Tablet [Percocet 10/325] Dilaudid 0.5 mg, 0.25 Inactive [place] mL, Route: IVP, 2017 Medical Drug form: INJ, Center ONCE, Start date: 11/15/17 11:01:00 CDT, Stop date: 11/15/17 11:01:00 CDT Phenergan Notes: (Same Inactive [facility] as: Phenergan) 2018 Medical Center Dilaudid [...] over 2.5 Active 2018 Medical hours For [place] adult patients only: Round to nearest 250 mg per Medical Staff approval MEDICATION WASTE Product Size: 1000 mg Product Wasted: ___ mg Enoxaparin Notes: (Same No Longer [place] as as: Lovenox) Active 2018 [facility] Sodium Chloride 1,000 mL, Rate: No [...] Inactive [place] 325 MG / as: [place] 2018 Medical Hydrocodone 325/5) Do not Cente r Bitartrate 5 MG exceed 4gm/day Oral Tablet of acetaminophen. Reglan Notes: (Same Inactive [place] as: Reglan) 2018 [facility] Center Benadryl Notes: (Same Inactive [place] as: Benadryl) 2018 [facility] Magnesium Notes: WASTE: Inactive [place] Sulfate F/P - Sink; E - 2018 [facility] Trash [facility] [place] Sodium Chloride 1,000 mL, 1000 Inactive [place] 0.9% (Bolus) IV ml/hr, Infuse 2018 Ga dical Over: 1 hr, Center Route: IV, 1,000, Drug form: INJ, ONCE, Priority: STAT, Dosing Weight 127.273 kg, Start date: 11/14/17 23:26:00 CDT, Stop date: 11/14/17 23:26:00 CDT Zosyn 4.5 gm, Route: Inactive 11/15[facility] IVPB, ONCE, 2018 Medical Dosing Weight Center 127.273, kg, Priority: STAT, Start date: 11/14/17 23:10:00 CDT, Stop date: 11/14/17 23:10:00 CDT, ABX Indication: Bacteremia Vancomycin 2001 mg: Inactive [facility] infuse over 2.5 2018 Medical hours For Center adult patients only: Round to nearest 250 mg per Medical Staff approval MEDICATION WASTE Product Size: 1000 mg Product Wasted: ___ mg normal saline 1,000 mL, Rate: No Longer [facility] 0.9% IV 1,000 75 ml/hr, Active 2018 Medical mL Infuse over: Center 13.3 hr, Route: IV, Dosing Weight 127.273 kg, Total Volume: 1,000, Start date: 11/14/17 22:39:00 CDT, Duration: 30 day, Stop date: 12/14/17 22:38:00 CDT, 2.36, m2 Acetaminophen Notes: Max Inactive 11/15[facility] Tim as acetaminophen 2018 Medical 4000 mg/day (4 Center gm/day). (Same as: Tylenol Extra Strength) Rocephin Notes: (Same Inactive 11/15[facility] As: Rocephin). 2018 Medical MEDICATION Center WASTE Product Size: 1000 mg Product Wasted: _0__ mg Morphine 4 mg, Route: Inactive 11/15[facility] IVP, ONCE, 2018 Medical Dosing Weight Center 127.273, kg, Priority: STAT, Start date: 11/14/17 19:05:00 CDT, Stop date: 11/14/17 19:05:00 CDT Benadryl Notes: (Same Inactive 11/14[facility] as: Benadryl) 2018 Medical Center Benadryl Notes: (Same Inactive 11/14[facility] as: Benadryl) 2018 Medical Center Morphine [...] ERTAPENEM:S Culture: >100,000 CFU/mL Proteus mirabilis 05/22 [facility]:PT:ISOL Urine 10,000 - 50,000 CFU/mL Skin Kayla /2017 Medical ATE:ORDQN:M [place] IC ERTAPENEM:S Proteus Proteus 05/22 [facility]:PT:ISOL mirabilis mirabilis /2017 Medical ATE:ORDQN:M Center IC URINE AND UA Nitrite Negative Negative 05/22 [facility] STOOL (05/22/18 10:48 AM) /2017 Medic al Center URINE AND UA Bili Negative Negative 05/22 [facility] STOOL *NA* /2017 Medical (05/22/18 10:48 AM) Cente r URINE AND UA Ketones Negative Negative 05/22 [facility] STOOL *NA* /2017 Medical (05/22/18 10:48 AM) Cente r URINE AND UA Blood Trace Negative 05/22 [facility] STOOL *ABN* /2017 Medical (05/22/18 10:48 AM) Cente r URINE AND UA 0.2 0.1 - 1.0 05/22 [facility] STOOL Urobilinogen /2017 [facility] Center URINE AND UA Leuk Est Large Negative 05/22 [facility] STOOL *ABN* /2017 Medical (05/22/18 10:48 AM) Cente r URINE AND UA Protein Negative Negative 05/22 [facility] STOOL (05/22/18 10:48 AM) /2017 Medic al Center URINE AND UA Glucose Negative Negative 05/22 [facility] STOOL (05/22/18 10:48 AM) /2018 [facility] URINE AND UA pH 7.0 5.0 - 8.0 05/22 [facility] URINE AND UA Spec Grav 1.015 <=1.030 05/22 [facility] URINE AND UA Color Yellow Yellow 05/22 [facility] STOOL *NA* /2017 Medical (05/22/18 10:48 AM) Cente r URINE AND UA Turbidity Clear Clear 05/22 [facility] (05/22/18 10:48 AM) [facility] URINE AND UA Mucus Few /LPF None Seen 05/22 [facility] /LPF /2017 [facility] URINE AND UA Bacteria Few /HPF None Seen 05/[facility] URINE AND UA RBC 0-2 /HPF 0 - 2 05/22 [facility] URINE AND UA Sq Epi None Seen Few 05/22 [facility] (05/22/18 10:48 AM) [facility] URINE AND UA WBC 51-100 None Seen 05/22 [facility] /HPF /HPF [facility] BLOOD BANK Antibody Scrn Negative 05/22 Tim as RESULTS (05/22/18 5:57 AM) [facility] BLOOD BANK ABO/Rh AB POS 05/22 [facility] RESULTS /2017 [facility] HEMATOLOGY PTT 33.4 22.9 - 05/22 [place] 35.8 [facility] HEMATOLOGY PT 13.7 12.0 - 05/22 [facility] 14.7 [facility] HEMATOLOGY INR 1.05 0.85 - 05/22 [facility] 1.17 [facility] CHEM PANEL eGFR 133 05/22 Result [facility] Comment: The [facility] eGFR is Center calculated using the [...] Calcium Lvl 9.4 8.5 - 10.5 05/22 [facility] CHEM PANEL CO2 28 24 - 32 05/22 [facility] CHEM PANEL BUN 14 7 - 22 05/22 [facility] CHEM PANEL Glucose Lvl 89 70 - 99 05/22 [facility] CHEM PANEL Chloride Lvl 104 95 - 109 05/22 a s [facility] CHEM PANEL Potassium Lvl 4.2 3.5 - 5.1 05/22 [place] [facility] CHEM PANEL Sodium Lvl 137 135 - 145 05/22 [facility] CHEM PANEL Creatinine 0.85 0.50 - 05/22 [facility] Lvl 1.40 [facility] CHEM PANEL AGAP 9.2 10.0 - 05/22 20.0 [facility] HEMATOLOGY ACT (TEG) 136 86 - 118 05/22 [facility] HEMATOLOGY [place] 0.6 05/22 [facility] HEMATOLOGY R-time Rapid 0.9 0.4 - 0.7 05/22 [facility] HEMATOLOGY K-time Rapid 1.4 0.6 - 2.3 05/22 [facility] HEMATOLOGY Angle Rapid 71 64 - 80 05/22 [facility] HEMATOLOGY G-value Rapid 12.7 5.0 - 11.6 05/22 [place] [facility] HEMATOLOGY Max Amplitude 72 52 - 71 05/22 [place] Rapid [facility] HEMATOLOGY Estimated % 0.1 0.0 - 7.5 05/22 [place] Lysis [facility] HEMATOLOGY Platelet 367 133 - 450 05/22 [facility] HEMATOLOGY MPV 7.8 7.4 - 10.4 05/22 [facility] HEMATOLOGY MCH 27.4 27.0 - 05/22 [place] 31.0 [facility] HEMATOLOGY MCV 80.7 80.0 - 05/22 [place] 94.0 [facility] HEMATOLOGY MCHC 34.0 32.0 - 05/22 [facility] [place] 36.0 [facility] HEMATOLOGY RDW 18.9 11.5 - 11 [place] 14.5 [facility] HEMATOLOGY Hct 43.3 42.0 - 11 [place] 54.0 [facility] HEMATOLOGY WBC 9.3 3.7 - 10.4 05/22 [facility] HEMATOLOGY Hgb 14.7 14.0 - 05/22 18.0 [facility] HEMATOLOGY RBC 5.36 4.70 - 11 [place] 6.10 [facility] HEMATOLOGY Eosinophils # 0.2 0.0 - 0.5 11 [facility] HEMATOLOGY Basophils # 0.1 0.0 - 0.2 05/22 [facility] HEMATOLOGY Lymphocytes # 1.8 1.0 - 5.5 05/22 [facility] HEMATOLOGY Monocytes # 0.9 0.0 - 0.8 05/22 [facility] HEMATOLOGY Neutrophils # 6.3 1.5 - 8.1 05/22 [facility] HEMATOLOGY Eosinophils 2.0 0.0 - 4.0 05/22 [facility] HEMATOLOGY Segs 67.4 45.0 - 05/22 [place] 75.0 [facility] HEMATOLOGY Lymphocytes 19.9 20.0 - 05/22 [place] 40.0 [facility] HEMATOLOGY Basophils 1.0 0.0 - 1.0 05/22 [facility] HEMATOLOGY Monocytes 9.7 2.0 - 12.0 05/22 2017 [facility] CHEM PANEL B/C Ratio 17 6 - 25 11/19 [facility] CHEM PANEL Globulin 4.3 2.7 - 4.2 11/19 [facility] CHEM PANEL A/G Ratio 0.7 0.7 - 1.6 11/19 [facility] CHEM PANEL AGAP 14.4 10.0 - 11/19 [place] 20.0 [facility] CHEM PANEL eGFR 113 11/19 Result [...] Alk Phos 76 39 - 136 05/ [address] CHEM PANEL ALT 35 0 - [address] CHEM PANEL Albumin Lvl 2.8 3.5 - 5.0 11/[address] CHEM PANEL Total Protein 7.1 6.4 - 8.4 11/[address] CHEM PANEL Calcium Lvl 8.7 8.5 - 10.5 / [address] CHEM PANEL AST 18 0 - 37 05/ [address] CHEM PANEL Bili Total 0.3 0.2 - 1.3 / [address] CHEM PANEL Potassium Lvl 4.4 3.5 - 5.1 / [address] CHEM PANEL Chloride Lvl 109 95 - 109 05/ [address] CHEM PANEL CO2 23 24 - 32 05/ [address] CHEM PANEL Glucose Lvl 114 70 - 99 05/ [address] CHEM PANEL Creatinine 1.01 0.50 - 05/ [facility] Lvl 1.40 /2017 [facility] CHEM PANEL BUN 17 7 - 22 05/ [address] CHEM PANEL Sodium Lvl 142 135 - 145 05/ [address] HEMATOLOGY Basophils 0.6 0.0 - 1.0 / [address] HEMATOLOGY Segs-Bands # 4.8 1.5 - 8.1 / [address] HEMATOLOGY Monocytes # 0.7 0.0 - 0.8 / [address] HEMATOLOGY Lymphocytes # 1.9 1.0 - 5.5 05 [facility] HEMATOLOGY Monocytes 9.4 2.0 - 12.0 11/19 [facility] HEMATOLOGY Eosinophils # 0.2 0.0 - 0.5 11/19 [facility] HEMATOLOGY Eosinophils 2.9 0.0 - 4.0 11/[place] /2017 [facility] HEMATOLOGY Segs 62.2 45.0 - 11/19 [place] 75.0 [facility] HEMATOLOGY Lymphocytes 24.9 20.0 - 11/19 [place] 40.0 /2017 [facility] HEMATOLOGY MCH 27.5 27.0 - 11/19 [place] 31.0 [facility] HEMATOLOGY MCV 85.3 80.0 - 11/19 [place] 94.0 [facility] HEMATOLOGY Hct 43.9 42.0 - 11/19 [place] 54.0 [facility] HEMATOLOGY Hgb 14.2 14.0 - 11/19 [place] 18.0 [facility] HEMATOLOGY WBC 7.7 3.7 - 10.4 11/19 [facility] HEMATOLOGY RBC 5.15 4.70 - 11/19 [place] 6.10 [facility] HEMATOLOGY MPV 8.4 7.4 - 10.4 11/19 [facility] HEMATOLOGY MCHC 32.3 32.0 - 11/19 [place] 36.0 [facility] HEMATOLOGY RDW 17.3 11.5 - 11/19 [place] 14.5 /2017 [facility] HEMATOLOGY Platelet 317 133 - 450 11/19 2017 [facility] CHEM PANEL Globulin 4.4 2.7 - 4.2 11/18 [facility] CHEM PANEL A/G Ratio 0.6 0.7 - 1.6 11/18 [facility] CHEM PANEL B/C Ratio 17 6 - 25 11/18 [facility] CHEM PANEL AGAP 11.3 10.0 - 11/18 [place] 20.0 [facility] CHEM PANEL eGFR 134 05/ [facility] Comment: The Medical eGFR is Center calculated [...] CHEM PANEL Creatinine 0.84 0.50 - 11/18 [facility] Lvl 1.40 [facility] CHEM PANEL Sodium Lvl 142 135 - 145 11/[address] CHEM PANEL Glucose Lvl 99 70 - 99 11/[address] CHEM PANEL BUN 14 7 - 22 11/[address] CHEM PANEL Alk Phos 79 39 - 136 11/[address] CHEM PANEL Bili Total 0.3 0.2 - 1.3 11/[address] CHEM PANEL AST 14 0 - 37 11/[address] CHEM PANEL ALT 43 0 - 65 11/[address] CHEM PANEL Total Protein 7.1 6.4 - 8.4 11/[address] CHEM PANEL Albumin Lvl 2.7 3.5 - 5.0 11/[address] CHEM PANEL Calcium Lvl 9.2 8.5 - 10.5 11/18 [facility] CHEM PANEL CO2 21 24 - 32 11/[address] CHEM PANEL Potassium Lvl 4.3 3.5 - 5.1 11/[address] CHEM PANEL Chloride Lvl 114 95 - 109 11/18 [facility]2017 [facility] HEMATOLOGY MCHC 32.5 32.0 - 11/18 [facility] 36.0 [facility] HEMATOLOGY RDW 17.5 11.5 - 05/ [facility] 14.5 [facility] HEMATOLOGY Platelet 400 133 - 450 11/[address] HEMATOLOGY MPV 8.5 7.4 - 10.4 11/[address] HEMATOLOGY WBC 6.6 3.7 - 10.4 11/18 [facility] HEMATOLOGY RBC 5.17 4.70 - 11/18 [place] 6.10 [facility] HEMATOLOGY MCV 86.1 80.0 - 11/18 94.0 [facility] HEMATOLOGY Hct 44.5 42.0 - 11/18 [place] 54.0 [facility] HEMATOLOGY MCH 28.0 27.0 - 11/18 [place] 31.0 [facility] HEMATOLOGY Hgb 14.5 14.0 - 11/18 18.0 [facility] HEMATOLOGY Lymphocytes # 1.7 1.0 - 5.5 11/18 [facility] HEMATOLOGY Monocytes # 0.7 0.0 - 0.8 11/18 [facility] HEMATOLOGY Eosinophils # 0.2 0.0 - 0.5 11/18 [facility] HEMATOLOGY Lymphocytes 26.1 20.0 - 11/18 40.0 [facility] HEMATOLOGY Segs 59.3 45.0 - 11/18 75.0 [facility] HEMATOLOGY Basophils 0.8 0.0 - 1.0 11/18 [facility] HEMATOLOGY Monocytes 10.5 2.0 - 12.0 11/18 [facility] HEMATOLOGY Eosinophils 3.3 0.0 - 4.0 11/18 [facility] HEMATOLOGY Segs-Bands # 3.9 1.5 - 8.1 11/18 [facility] TOXICOLOGY Vanco Tr TND 15:30pm 11/17 [facility] TOXICOLOGY Vanco Tr 9.1 11/17 [facility] CHEM PANEL Glucose Lvl 74 70 - 99 11/17 [facility] CHEM PANEL BUN 12 7 - 22 11/17 [facility]2017 [facility] CHEM PANEL Creatinine 0.75 0.50 - 11/17 [facility] Lvl 1.40 [facility] CHEM PANEL eGFR 140 05 [facility] Comment: The Medical eGFR is Center calculated [...] Albumin Lvl 2.9 3.5 - 5.0 05/ [address] CHEM PANEL Globulin 4.4 2.7 - 4.2 11/[address] CHEM PANEL A/G Ratio 0.7 0.7 - 1.6 11/[address] CHEM PANEL Bili Total 0.4 0.2 - 1.3 11/[address] CHEM PANEL Alk Phos 71 39 - 136 05/ [address] CHEM PANEL AST 15 0 - 37 05/ [address] CHEM PANEL ALT 28 0 - 65 05/ [address] CHEM PANEL Potassium Lvl 4.4 3.5 - 5.1 11/[address] CHEM PANEL Sodium Lvl 147 135 - 145 05/ [address] CHEM PANEL CO2 25 24 - [address] CHEM PANEL Chloride Lvl 114 95 - [address] CHEM PANEL B/C Ratio 16 6 - 25 / [address] CHEM PANEL Calcium Lvl 8.7 8.5 - 10.5 / [address] CHEM PANEL AGAP 12.4 10.0 - 05/ [facility] 20.0 [facility] CHEM PANEL Total Protein 7.3 6.4 - 8.4 11/[address] HEMATOLOGY Platelet 345 133 - 450 05/ [address] HEMATOLOGY MPV 8.7 7.4 - 10.4 11/[address] HEMATOLOGY WBC 6.9 3.7 - 10.4 05 [facility] HEMATOLOGY RBC 5.30 4.70 - 05 [place] 6.10 Medical [place] HEMATOLOGY MCHC 32.8 32.0 - 05 [place] 36.0 [facility] HEMATOLOGY MCH 27.9 27.0 - 11/17 [place] 31.0 [facility] HEMATOLOGY Hgb 14.8 14.0 - 11/17 [place] 18.0 [facility] HEMATOLOGY MCV 85.0 80.0 - 11/17 [place] 94.0 [facility] HEMATOLOGY Hct 45.1 42.0 - 11/17 [place] 54.0 [facility] HEMATOLOGY RDW 17.5 11.5 - 05 [place] 14.5 [facility] HEMATOLOGY Eosinophils # 0.2 0.0 - 0.5 05 [facility] HEMATOLOGY Lymphocytes # 2.0 1.0 - 5.5 11/17 [facility] HEMATOLOGY Monocytes # 0.7 0.0 - 0.8 11/17 [facility] HEMATOLOGY Eosinophils 2.4 0.0 - 4.0 11/17 [facility] s [facility] HEMATOLOGY Basophils 0.6 0.0 - 1.0 05 [facility] HEMATOLOGY Segs-Bands # 4.0 1.5 - 8.1 11/17 [facility] HEMATOLOGY Monocytes 10.4 2.0 - 12.0 11/17 [facility] HEMATOLOGY RBC Morph Normal 11/17 [facility] (11/17/17 2:07 AM) [facility] HEMATOLOGY Segs 58.1 45.0 - 11/17 [place] 75.0 [facility] HEMATOLOGY Plt Morph Normal 11/17 [facility] (11/17/17 2:07 AM) [facility] HEMATOLOGY Lymphocytes 28.5 20.0 - 05 [place] 40.0 [facility] HEMATOLOGY Basophils # 0.1 0.0 - 0.2 11/16 [facility] HEMATOLOGY Polychrom Moderate None Seen 11/16 [facility] *ABN* /2017 [facility] (11/16/17 11:07 AM) [place] TOXICOLOGY Vanco Tr TND * 05 [facility] TOXICOLOGY Vanco Tr 22.3 05 [facility] CHEM PANEL Magnesium Lvl 2.3 1.8 - 2.4 11/15 [place] /2017 [facility] CHEM PANEL Phosphorus 3.5 2.5 - 4.5 11/15 [facility] HEMATOLOGY PT 14.0 12.0 - 11/15 [place] 14.7 [facility] HEMATOLOGY PTT 37.6 22.9 - 11/15 [place] 35.8 [facility] HEMATOLOGY INR 1.08 0.85 - 11/15 [place] 1.17 [facility] IMMUNOLOGY C-REACTIVE 13.1 <=2.9 mg/L 11/15 [place] PROTEIN /2017 [facility] IMMUNOLOGY Prealbumin 25.2 18.0 - 11/15 [place] 45.0 [facility] CHEM PANEL Lactic Acid 0.9 0.5 - 2.2 11/15 [place] Lvl /2017 [facility] HEMATOLOGY Sed Rate 5 0 - 15 11/15 [facility] IMMUNOLOGY C-REACTIVE 15.8 <=2.9 mg/L 11/15 [facility] PROTEIN [facility] HEMATOLOGY PT 13.0 12.0 - 11/15 [place] 14.7 [facility] HEMATOLOGY INR 0.98 0.85 - 11/15 [place] 1.17 [facility] HEMATOLOGY PTT 33.2 22.9 - 11/15 [place] 35.8 [facility] BLOOD BANK Antibody Scrn Negative 11/14 [facility] as RESULTS (11/14/17 6:51 PM) /2017 [facility] BLOOD BANK ABO/Rh AB POS 11/14 [facility] RESULTS /2017 [facility] URINE AND UA 0.2 0.1 - 1.0 11/14 [facility] STOOL Urobilinogen /2017 [facility] URINE AND UA Nitrite Negative Negative 11/14 [facility] STOOL (11/14/17 6:35 PM) /2017 [facility] URINE AND UA Glucose Negative Negative 11/14 [facility] STOOL (11/14/17 6:35 PM) /2017 [facility] URINE AND UA Ketones Negative Negative 11/14 [facility] STOOL *NA* /2017 [facility] (11/14/17 6:35 PM) [place] URINE AND UA Bili Negative Negative 11/14 [facility] STOOL *NA* /2017 [facility] (11/14/17 6:35 PM) [place] URINE AND UA Blood Trace Negative 11/14 [facility] STOOL *ABN* /2017 [facility] (11/14/17 6:35 PM) [place] URINE AND UA Leuk Est Small Negative 11/14 [facility] *ABN* [facility] (11/14/17 6:35 PM) [place] URINE AND UA Spec Grav 1.020 <=1.030 11/14 [facility] /[address] [place] [address] URINE AND UA pH 6.0 5.0 - 8.0 11/[address] URINE AND UA Color Yellow Yellow 11/14 [facility] *NA* /2017 [facility] (11/14/17 6:35 PM) [place] URINE AND UA Protein Trace Negative 11/14 [facility] *ABN* [facility] (11/14/17 6:35 PM) [place] URINE AND UA Turbidity Slight Cloudy Clear 11/14 [facility] (11/14/17 6:35 PM) [facility] URINE AND UA Hyal Cast 0-2 0 - 2 11/14 [facility] (11/14/17 6:35 PM) [address] [place] [address] URINE AND UA Bacteria Occasional None Seen 11/14 [place] ST[place]OL /HPF /HPF [facility] URINE AND UA RBC 11-20 /HPF 0 - 2 11/14 [facility] /[address] [place] [address] URINE AND UA Sq Epi Occasional Few /LPF 11/14 [facility] STOOL /LPF /2017 [facility] URINE AND UA WBC 51-100 None Seen 11/14 [facility] STOOL /HPF /HPF /[address] [place] [address] HEMATOLOGY Basophils # 0.1 0.0 - 0.2 11/14 [place] [facility] HEMATOLOGY Polychrom Slight 11/[address] HEMATOLOGY Plt Morph Normal 11/14 [facility] (11/14/17 6:20 PM) [address] Pathology Reports No Data Provided for This Section Diagnostic Reports Report Value Date Source Brain-Outside Consult EXAM: CT BRAIN WITHOUT CONTRAST -- OUT SIDE CONSULT 05/22/2018 [facility] CT DATE: 05/22/2018 4:49 AM CLERICAL ADVISER Cent er INDICATION: ' - PAIN' COMPARISON: Noncontrast head CTs 11/14/2017, , 03/27/2013 TECHNIQUE: Noncontrast [facility] CT submitted for 2nd interpretation. 205 images. Imaging was performed at [facility] on 05/22/2018. IV contrast: None. [...] CT EXAM: CT BRAIN WITHOUT CONTRAST 11/14/2017 [facility] DATE: 11/14/2017 627 PM CDT Center INDICATION: 32-year-old male patient with histor y of vp packaging shunt malfunction COMPARISON: CT of the brain 07/30/2014, 03/27/2013 . TECHNIQUE: Axial CT images o f the brain were obtained. Sagittal and coronal reformats. IV contrast: None. FINDINGS: An orphaned right occipital approach FINISHING INSPECTOR shunt is present. Also present is a right frontal approach FINISHING INSPECTOR shunt with tip in the left lateral [...] DX EXAM: XR CHEST 1 VIEW 11/14/2017 [facility] edical DATE: 11/14/2017 6:12 PM CDT Cente [...] Date Comments Source Respitory Rate 16 05/22/2018 [facility] Systolic (mm Hg) 138 05/22/2018 [facility] Diastolic (mm Hg) 68 05/22/2018 [facility] Temperature Oral (F) 98.4 F 05/22/2018 [facility] Temperature Oral (F) 98.6 F 05/22/2018 [facility] Systolic (mm Hg) 134 05/22/2018 [facility] Diastolic (mm Hg) 67 05/22/2018 [facility] Respitory Rate 18 05/22/2018 [facility] Systolic (mm Hg) 131 05/22/2018 [facility] Diastolic (mm Hg) 62 05/22/2018 [facility] Respitory Rate 16 05/22/2018 [facility] BMI Calculated 58.7 05/22/2018 [facility] Height 149.86 cm 05/22/2018 [facility] Weight 131.818 05/22/2018 [facility] Heart Rate 74 05/22/2018 [facility] Temperature Oral (F) 97.9 F 05/22/2018 [facility] Temperature Oral (F) 97.2 F 11/19/2017 [facility] Systolic (mm Hg) 127 11/19/2017 [facility] Diastolic (mm Hg) 85 11/19/2017 [facility] Heart Rate 81 11/19/[facility] Respitory Rate 18 11/19/2017 [facility] Heart Rate 90 11/19/[facility] Systolic (mm Hg) 106 11/19/2017 [facility] Diastolic (mm Hg) 71 11/19/2017 [facility] Center Respitory Rate 18 11/19/2017 [facility] Temperature Oral (F) 98.1 F 11/19/2017 [facility] Respitory Rate 18 11/19/2017 [facility] Systolic (mm Hg) 168 11/19/2017 [facility] Center Diastolic (mm Hg) 107 11/19/2017 [facility] Heart Rate 87 11/19/2017 [facility] Temperature Oral (F) 98.1 F 11/19/2017 [facility] Weight 127.027 11/18/[facility] Weight 127.027 11/17/[facility] Weight 127.027 11/15/2017 [facility] BMI Calculated 48.16 11/15/2017 [facility] Height 162.56 cm 11/15/2017 [facility] Height 149.86 cm 11/14/2017 [facility] BMI Calculated 56.67 11/14/2017 [facility] Encounters Location Location Encounter Encounter Reason Attending ADM DC Stat us Source Details Type Number For Provider Date Date [facility] [id number] [place] [facility] [id number] [place] 05/22 05/22 [facility] Alice Kevin /2017 [facility] Phone [id number] 01/01 01/03 Misc her Neurosurgery Message /2018 Josefa ro C [facility] Phone [id number] 01/26 01/28 Misc her Neurosurgery Message /2018 Josefa gonzalez [facility] Phone [id number] 02/10 02/12 Mis her Neurosurgery Message /2018 Josefa gonzalez [facility] Phone [id number] 03/02 03/04 Mis her Neurosurgery Message /2018 Josefa gonzalez [facility] Procedures Procedure Code Date Perfomer Comments Source Cholecystectomy [id number] [facility] Shunt of cerebral [id number] [facility] ventricle to Neuro, extracranial site [facility] Assessment and Plan Assessment and Plan Date Source Extracted from:Title: Ophthalmology Consultation 05/22/2018 [facility] Author: Rajni Menjivar MD Date: 05/22/18 CONSULTATION - OPHTHALMOLOGY PATIENT NAME: Karen ARCE MR #: [id number] ROOM:ED REQUESTING TEAM/ATTENDING: JUANI DATE OF CONSULT: 05/22/2018 CONSULTING ATTENDING: Lucia Bob MD CONSULTING RESIDENT: Rajni Menjivar MD REASON FOR CONSULT: Evaluate for disc edema CHART REVIEWED: YES HISTORY OF PRESENT ILLNESS: The patient is a patient with PMH of spina bifida with FINISHING INSPECTOR shunt with several week history of severe [...] tropicamide 1% @ 8:30AM) OPTIC NERVE: Right: [place], healthy nerve Left: [place], healthy nerve C:D RATIO Right: 0.2 Left: 0.2 POSTERIOR SEGMENT Right: Macula, vessels, periphery within normal limits Left: Macula, vessels, periphery within normal limits DIAGNOSES/RECOMMENDATION: 1. Spina bifida - No evidence of disc edema - Management as per neuro-surgery The patient has been given information t o call for an appointment to follow-up with Lucia Bob MD at the [facility] in in 3-4months. (Located: [address] [place] [address]; Appt #: [phone]). Please re-consult if any changes develop. Thank you for the consult. Rajni Menjivar MD Ophthalmology, PGY-2 Faculty note: Patient exam reviewed with the resident. I agree with above assessment and plan. Any additional findings or changes are detailed below. examined for headaches. no evidence of papilledema Extracted from:Title: Progress Note 11/19/2017 [facility] Author: Ruth Quesada MD Date: 11/18/17 1.Acute headache,Acute headache possibly related to FINISHING INSPECTOR infection, diffe rential includes ELISE, neuropathy, and narcotic withdrawal -Discussed with neurosurgery today do n ot believe that there is any role for intervention, no evidence of infection, shunt is appropriate, no evidence of optic disc changes Discussed this with the patient 2.FINISHING INSPECTOR (ventriculoperitoneal) shunt status Appears to be functioning well and decompressing the ventri cles 3.Acute UTI Will discontinue vancomycin continue Zo syn for the patient's prior osteomyelitis Urine cultures are negative 4.Decubitus ulcer present on admission, evaluated by wound care, RN following recs daily -[facility] for[facility] tomorrow. 5.Acute pain MMP [...] Pain Chief Complaint 11/14/2017 17:41 transfer from [facility] for FINISHING INSPECTOR shunt malfunction/enlarged ventricles c/o ELISE/intermittent blurred vision [...] nausea, vomiti ng in setting of prior FINISHING INSPECTOR shunt. Per primary team no planned neurosurgical intervention at this time. consulted for help in managing patient's headache . Histories Past Medical History: Resolved Asthma ([id number]): Resolved. Bronchitis (79961510): Resolved. Cerebral palsy (017789875): Resolved. Hydrocephalus (692997686): Resolved. Osteomyelitis (20742129): Resolved. Family History: No family history items have been selected or recorded. Procedure history: Cholecystectomy (SNOMED CT 91544167). Shunt of cerebral ventricle to extracranial site (SNOMED CT 531243841). Social History Social and Psychosocial Habits Tobacco [...] BID enoxaparin: 40 mg, 0.4 mL, SUB-Q, [id number] gabapentin: 300 mg, 1 cap, PO, Q8Hnow [...] ml INJ 40 mg 0.4 mL, SUB-Q, [id number] gabapentin 300 mg CAP 300 mg 1 [...] All Problems Acute pain / SNOMED CT 614795442 / Confirmed Headache / SNOMED CT 85251260 / Confirmed Review of Systems Constitutional Cardiovascular Ear/Nose/Mouth/Throat Respiratory: Negative. Gastrointestinal: Nausea. Musculoskeletal Neurologic: headache, FINISHING INSPECTOR shunt in place. +nausea. Psychiatric Endocrine Hematology/Lymphatics [...] 00:43) BMI 48.16 (NOVEMBER 15 00:43) HENT: FINISHING INSPECTOR shunt in situ, headache. Review / Management [...] interpretation Impression and Plan Diagnosis Acute headache ([id number], Working, Medical). Course: Worsening. Orders Education and Follow-up: Counseled : Patient, Regarding treatment, Regarding medications. [employer] 32M hx CP, FINISHING INSPECTOR shunt, chronic foot pressu re ulcers. Consulted [...] with spina bifi daand hydrocephalus treated by FINISHING INSPECTOR shunt who presented to [facility] emergency room complaining of headache and blurry vision. He was there 2 days and transferredt o [facility] for higher level of care. Here he [...] beforeany CSF can be obtained from his FINISHING INSPECTOR shunt. Wewill t ry to avoid any IV narcotics,manage his pain with oral analgesicsas he is toleratingall his meals,and de-escalate his antibiotics as soon as possible. 1.Acute headache Patient has headaches that may bedue to infection of his FINISHING INSPECTOR system, however the differential also includes migraine, neuropathy and narcotics withdrawal. 2.FINISHING INSPECTOR (ventriculoperitoneal) shunt status Appears to be functioning well and decompressing the ventric les We will avoid anyinterventionand access until systemic infec tion is ruled out 3.Acute UTI Broad-spectrum antibiotic coverage until systemic infection is ruled out 4.Decubitus ulcer Present on admission We will ask wound care to evaluate and prescribe treatment Lovenox Home once etiology of headache is known [facility] Hospitalist service is primary. Page [phone] aiyana montalvormarnie. Plan of Care No Data Provided for This Section Social History Social History Date Source Social History TypeResponse 05/22/2018 [facility] Smoking Status Current every day smoker; Type: Cigarett es; Lives with someone who smokes; Cigarette Smoking Last 365 Days Yes; Reg Smoking Cessation Counseling No entered on: 05/22/18 Social History TypeResponse 05/22/2018 [facility] Smoking Status Current every day smoker; Type: Cigarett es; Lives with someone who smokes; Cigarette Smoking Last 365 Days Yes; Reg Smoking Cessation Counseling No entered on: 05/22/18 Family History No Data Provided for This Section Advance Directives No Data Provided for This Section Functional Status No Data Provided for This Section
--- OUTSIDE RECORDS SUMMARY | 2020-07-29 15:23 | XMS REPORT | Continuity of Care Document ---
:1985 Author Organization [facility] t Address [address] [place] [address] Care Team Providers Name Role Phone Sharpless [...] Expiration Date Sour ce Number MEDICAID - [id number] [address] [facility] MEDICAID MGD 00:00:00 - Medical CAREMCD [facility] STAR CSIFbtkow75071/2019-PresentMedic aid Contracted Problems Condition Condition Condition Status Onset Resolution Last Treating Co mments Source Name Details Category Date Date Treatment Clinician Date Hyperglyce Hyperglyce Disease Active [facility] pedro pedro 07-21 [facility] without without 00:00: [facility]osis [facility] HEADACHE Diagnosis Active 2017-072018-05-27 M emoria 07-22 22:05:00 l HEADACHE 00:00: Christian n 00 Active 05/22/2018 [facility] SHUNT Diagnosis Active 2017-11-14 Mem oria MALFUNCTIO 11-14 20:00:00 l N SHUNT 00:00: Jason MALFUNCTIO 00 N Active 11/14/2017 [facility] ACUTE Diagnosis Active 2017-11-20 Mem oria HEADACHE 11-14 09:20:00 l ACUTE 00:00: [place] HEADACHE 00 Active 11/14/2017 [facility] Spina Spina Disease Active [facility] bifida bifida 12-24 [facility] - 00:[facility]: [facility] [place] Pyelonephr Pyelonephr Disease Active [facility] itis itis 12-23 [facility] - 00:[facility]: Medical 00 [place] Nicotine Nicotine Problem [facility] dependence [facility] - [facility] Lumbar Lumbar Problem Active [facility] spina spina [facility] - bifida bifida Memoria with with l hydrocepha hydrocepha Ou tpati bam bam ent Clinics Dependence Dependence Problem Active [facility] on [facility] - wheelchair wheelchair Me moria l [facility] Fecal Fecal Problem Active [facility] incontinen incontinen [facility] - ce ce [facility]oria l [facility] Foot ulcer Foot ulcer Problem Active [facility] Depression Depression Problem Active [facility] with with [facility] - anxiety anxiety [facility]oria l [facility] Paraplegia Paraplegia Problem Active [facility] Constipati Constipati Problem Active [facility] Incontinen Incontinen Problem Active [facility] ce of ce of [facility] - urine urine [facility] Nausea Nausea Problem Active [facility] alone alone [facility] Episodic Episodic Problem Active [facility] tension-ty tension-ty [facility] - pe pe Memoria headache, headache, l not not Outpati intractabl intractabl en t e e Clinics INFORMATION COORDINATOR INFORMATION COORDINATOR Problem Active [facility] (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 Me moria l) shunt l) shunt l status status [facility] Nonintract Nonintract Problem Active C [...] Kristen nn d bifida, unspecifie d 12/09/2018 [facility] Nausea Problem 2018-12-09 Memor ia with 14:14:02 l vomiting, Nausea Kristen nn unspecifie with d vomiting, unspecifie d 12/09/2018 [facility] Diplopia Problem 2018-12-09 Mem oria 14:14:02 l Diplopia Christian n 12/09/2018 [facility] 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, 14:14:02 l unspecifie Cerebral He rmann d palsy, unspecifie d 12/09/2018 [facility] 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-09 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:14:02 l other Acquired Christian n specified absence of parts of other digestive specified tract parts of digestive tract 12/09/2018 [facility] Nicotine Problem 2018-12-09 Mem oria dependence 14:14:02 l , Nicotine Christian kitchen cigarettes dependence , , uncomplica cigarettes odalys , uncomplica odalys 12/09/2018 [facility] Presence Problem 2018-12-09 Mem oria of 14:14:02 l cerebrospi Presence He rmann nal fluid of drainage cerebrospi device nal fluid drainage device 12/09/2018 [facility] Allergy Problem 2018-12-09 Erwin benjamin status to 14:14:02 l other Allergy [place] antibiotic status to agents other status antibiotic agents status 12/09/2018 [facility] Allergy Problem 2018-12-09 Erwin benjamin status to 14:14:02 l other Allergy [place] drugs, status to medicament other s and drugs, biological medicament substances s and status biological substances status 12/09/2018 [facility] Allergy Problem 2018-12-09 Erwin benjamin status to 14:14:02 l narcotic Allergy Kristen nn agent status to status narcotic agent status 12/09/2018 [facility] Asthma Problem Resolve 2019-03-06 Erwin benjamin (disorder) d 01:05:55 l Asthma [place] (disorder) Resolved Problem 03/06/2019 [facility] Bronchitis Problem Resolve 2019-03-06 Memoria (disorder) d 01:05:55 l [place] Bronchitis (disorder) Resolved Problem 03/06/2019 [facility] Cerebral Problem Resolve 2019-03-06 Me moria palsy d 01:05:55 l (disorder) Cerebral He rmann palsy (disorder) Resolved Problem 03/06/2019 [facility] Hydrocepha Problem Resolve 2019-03-06 Memoria bam d 01:05:55 l (disorder) Christian n Hydrocepha bam (disorder) Resolved Problem 03/06/2019 [facility] Osteomyeli Problem Resolve 2019-03-06 Memoria tis d 01:05:55 l (disorder) Christian n Osteomyeli tis (disorder) Resolved Problem 03/06/2019 [facility] Acute pain Problem Active 2019-03-06 M emoria (finding) 01:05:55 l Acute Jason pain (finding) Active Problem 03/06/2019 [facility] Headache Problem Active 2019-03-06 Mem oria (finding) 01:05:55 l Headache Christian n (finding) Active Problem 03/06/2019 [facility] Headache Problem 2017-2018-12-09 2018-12-09 Memoria 07-22 14:14:02 14:14:02 l Headache 06:00: Christian n 00 05/22/2018 12/09/2018 [facility] Allergies, Adverse Reactions, Alerts Allergy Allergy Status [...] amoxicil Active Memori [place] morphine morphine Active Memori a l [place] Toradol Toradol Active Memoria l Jason Minocin Minocin Active Memoria l [place] Zofran Zofran Active Memoria l Jason Levaquin Levaquin Active Memori a l [place] Bactrim Bactrim Active Memoria l [place] Social History Social Habit Start Date Stop Date Quantity Comments Source History of tobacco Cigarette Smoker 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, 2.4, m2 Magnesium 2017-07 No Notes: Memori a Sulfate 07-22 WASTE: F/P l 10:36: - Sink; E [place] - [facility] Trash Bin Isolyte S 2017-07 No Notes: Memori a PH-7.4 07-22 (Same as: l (Bolus) IV 10:36: Isolyte S rmann PH 7.4) Phenergan 2017-07 No 12.5 mg, Erwin benjamin 08 0.5 mL, l 10:35: Route: Jason 00 IVPB, Drug form: INJ, ONCE, Dosing Weight 131.818, kg, Priority: STAT, Start date: 05/22/18 4:35:00 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, Stop date: 05/22/18 4:35:00 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 l 22:00: Please [place] 00 check indication . Not for seizure. [...] oria 5-04 to exceed l 22:00: 400mg/day. [place] (Same As: Ultram) gabapentin No Notes: Memor ia 5-04 (Same as: l 22:00: Neurontin) Acetaminoph No Notes: Max Memoria en 5-04 acetaminop l 22:00: hen 4000 [place] 00 mg/day (4 gm/day). (Same as: Tylenol [...] / - (Same as: l Hydrocodone 06:46: [place] Kristen nn Bitartrate 00 325/5) Do 5 MG Oral not exceed Tablet 4gm/day of acetaminop hen. Reglan No Notes: Memoria 5-04 (Same as: l 04:27: Reglan) Benadryl No Notes: Memoria 5-04 (Same as: l 04:27: Benadryl) Magnesium No Notes: Memori a Sulfate 11-15 WASTE: F/P l 04:26: - Sink; E [place] - [facility] Trash [facility] Sodium No 1,000 mL, Memori a Chloride 5-04 1000 l 0.9% 04:26: ml/hr, [place] (Bolus) IV 00 Infuse Over: 1 hr, Route: IV, 1,000, Drug form: INJ, ONCE, Priority: STAT, Dosing Weight 127.273 kg, Start date: 11/14/17 23:26:00 CDT, Stop date: 11/14/17 23:26:00 CDT Zosyn No 4.5 gm, Memoria 11-15 Route: l 04:10: IVPB, [place] 00 ONCE, Dosing Weight 127.273, kg, Priority: [...] en 11-15 acetaminop l 02:56: hen 4000 [place] 00 mg/day (4 gm/day). (Same as: Tylenol [...] Codeine #4 Codeine #4 Mem oria l [facility] ent Clinics Macrobid Macrobid Yes Na Gamble [address] with food [facility] l [facility] Pantoprazol Pantoprazol Yes Na Gamble [address] e Sodium e Sodium [facility] l [facility] Collagenase Collagenase Yes Na Gamble [address] [facility] applicatio [facility] - n to Memoria affected l area [facility] ent Clinics Vital Signs Vital Name Observation Time Observation Value Comments Source Systolic blood 2019-07-30 12:58:00 136 mm[Hg] [facility] Diastolic blood 2019-07-30 12:58:00 78 mm[Hg] [facility] Heart rate 2019-07-30 12:58:00 96 /min [facility] Body temperature 2019-07-30 12:58:00 35.78 Abi [facility] Respiratory rate 2019-07-30 12:58:00 18 /min [facility] Oxygen saturation in 2019-07-30 12:58:00 96 /min [facility] Arterial blood by Medical Ce nter Pulse oximetry Respitory Rate 2018-05-22 17:30:00 Tonyori al Jason Systolic (mm Hg) 2018-05-22 17:30:00 Erwin rial [place] Diastolic (mm Hg) 2018-05-22 17:30:00 Mem orial [place] Temperature Oral (F) 2018-05-22 17:30:00 98.4 F [facility] Jason Temperature Oral (F) 2018-05-22 16:23:00 98.6 F [facility] Jason Systolic (mm Hg) 2018-05-22 16:23:00 Erwin rial [place] Diastolic (mm Hg) 2018-05-22 16:23:00 Mem orial [place] Respitory Rate 2018-05-22 14:00:00 Memori al [place] Systolic (mm Hg) 2018-05-22 14:00:00 Erwin rial [place] Diastolic (mm Hg) 2018-05-22 14:00:00 Mem orial Jason Respitory Rate 2018-05-22 13:30:00 Memori al Jason BMI Calculated 2018-05-22 10:16:00 Memori al Jason Height 2018-05-22 10:16:00 149.86 cm Memorial Jason Weight 2018-05-22 10:16:00 [facility] [place] Heart Rate 2018-05-22 10:16:00 [facility] [place] Temperature Oral (F) 2018-05-22 10:16:00 97.9 F [facility] Jason Temperature Oral (F) 2017-11-19 13:40:00 97.2 F [facility] Jason Systolic (mm Hg) 2017-11-19 13:40:00 Rewin rial Jason Diastolic (mm Hg) 2017-11-19 13:40:00 Mem orial Jason Heart Rate 2017-11-19 13:40:00 Memorial Jason Respitory Rate 2017-11-19 13:40:00 Memori al [place] Heart Rate 2017-11-19 05:24:00 [facility] [place] Systolic (mm Hg) 2017-11-19 05:24:00 Erwin rial Jason Diastolic (mm Hg) 2017-11-19 05:24:00 Mem orial Jason Respitory Rate 2017-11-19 05:24:00 Memori al Jason Temperature Oral (F) 2017-11-19 05:24:00 98.1 F [facility] [place] Respitory Rate 2017-11-19 01:15:00 Memori al [place] Systolic (mm Hg) 2017-11-19 01:15:00 Erwin rial [place] Diastolic (mm Hg) 2017-11-19 01:15:00 Mem orial Jason Heart Rate 2017-11-19 01:15:00 [facility] [place] Temperature Oral (F) 2017-11-19 01:15:00 98.1 F [facility] Jason Weight 2017-11-18 14:00:00 [facility] Jason Weight 2017-11-17 14:00:00 [facility] [place] Weight 2017-11-15 14:00:00 [facility] [place] BMI Calculated 2017-11-15 05:43:00 Memori al Jason Height 2017-11-15 05:43:00 [facility] 2017-11-14 22:41:00 149.86 cm [facility] [place] BMI Calculated 2017-11-14 22:41:00 [facility] Procedure Date / Time Performing Clinician Source Performed RHYTHM STRIP - SCAN 2019-08-07 14:11:01 Provider, [facility] RHYTHM STRIP - SCAN 2019-07-31 15:32:49 Provider, [facility] POCT-GLUCOSE METER 2019-07-30 12:52:[facility] 2019-07-30 09:03:00 [facility] PO[facility]SE METER 2019-07-29 20:45:00 [facility] POCT-GLUCOSE METER 2019-07-29 16:35:00 [facility] POCT-GLUCOSE METER 2019-07-29 12:08:00 [facility] POCT-GLUCOSE METER 2019-07-29 08:35:00 [facility] 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 Plan of Care Planned Activity Planned Date Details Comments Source Future Scheduled 2022-07-[address] [facility] (procedure) [code = Medical Center 56232177] Future Scheduled 2020-03-15 INFLUENZA VACCINE (#1) [facility] [code = INFLUENZA Medical Ce nter VACCINE (#1)] Future Scheduled 2019-10-[address] [facility]ia k[facility] - Test 00:00:00 measurement Medical Center (procedure) [code = 73023867] Future Scheduled 1995 DIABETIC EYE EXAM [facility] Test 00:00:00 [code = DIABETIC EYE Medical Center EXAM] Future Scheduled [address] Charly es - Test 00:00:00 examination Medical Center (regime/therapy) [code = 859684040] Future Scheduled 1995 Urine screening for [facility] - Test 00:00:00 protein (procedure) Medical Center [code = 783457517] Future Scheduled [address] [facility] - Test 00:00:00 0-64 YRS (1 of 1 - Medical C enter PPSV23) [code = PNEUMOCOCCAL VACCINE 0-64 YRS (1 of 1 - PPSV23)] Encounters Start End Encounter Admission Attending Care Care Encounter Source Date/Time Date/Time Type Type Clinicians Facility Department ID 2019-03-02 2019-03-03 Outpatient MHMISCHER MHMISCHER [id number] 11:11:26 23:59:59 08 2019-02-10 2019-02-11 Outpatient MHMISCHER MHMISCHER [id number] 11:16:47 23:59:59 07 2019-01-26 2019-01-27 Outpatient MHMISCHER MHMISCHER [id number] 10:52:03 23:59:59 06 2019-01-01 2019-01-02 Outpatient MHMISCHER MHMISCHER [id number] 13:55:03 23:59:59 05 2018-05-22 2018-05-22 Outpatient Neal [facility] [id number] 04:12:00 12:24:00 Zohaib Ca 2018-02-18 2018-02-18 Outpatient Suzette Uribe [id number] [address] 11:15:00 11:15:00 [facility] 2018-01-27 2018-01-27 Outpatient Suzette Uribe [id number] 11:30:00 11:30:00 t [facility] Outpati ent [facility] 2018-01-03 2018-01-03 Outpatient Suzette Uribe [id number] 15:41:00 15:41:00 [facility] ent [facility] 2017-12-23 2017-12-23 [facility] [id number] 15:42:00 15:42:00 [facility] ent [facility] 2017-12-17 2017-12-17 [facility] [id number] 11:00:00 11:00:00 [facility] ent [facility] 2017-11-14 2017-11-19 Outpatient Ruth Quesada [facility] [id number] 17:40:00 12:28:00 Percy 23 Results Test Description Test Time Test Comments Results Result Comments Source POC-Glucose meter 2019-07-30 13:03:00 Test Item Value Reference Range Interpretation Comme nts POC-Glucose Meter (test code = 140 mg/dL 70-110 H : TESTED AT [facility] [address], [facility] 30: Filler Spreader/Techni rose ID = [id number] for HOMERO DEYAMIKEY E Lab Interpretation (test code = Abnormal 00275-4) [facility] [id number] 13:03:00 Test Item Value Reference Range Interpretation Comments POC-GLUCOSE METER 140 mg/dL 70-110 H : TESTED A T [facility] [address] (BEAKER) (test code = [facility], [facility]8) [address]: Filler Spreader/Techni rose ID = [id number] for AARON COTTRELL POCT-GLUCOSE [id number] 09:15:00 Test Item Value Reference Range Interpretation Comments POC-GLUCOSE METER 142 mg/dL 70-110 H : TESTED A T [facility] 67[address] (BEAKER) (test code = [facility], 1538) [address]: Filler Spreader/Techni rose ID = [id number] for AARON COTTRELL POCT-GLUCOSE [id number] 20:56:00 Test Item Value Reference Range Interpretation Comments POC-GLUCOSE METER 134 mg/dL 70-110 H : TESTED A T [facility] 67[address] (BEAKER) (test code = [facility], [facility]) [address]90: Filler Spreader/Techni rose ID = [id number] for MG LANZA POCT-GLUCOSE [id number] 16:46:00 Test Item Value Reference Range Interpretation Comments POC-GLUCOSE METER 91 mg/dL 70-110 : TESTED A T [facility] 6720 (BEAKER) (test code = LIZBETH Petit [facility], 153) 8[address]: Filler Spreader/Techni rose ID = [id number] for AARON CABRAL POCT-GLUCOSE [id number] 12:19:00 Test Item Value Reference Range Interpretation Comments POC-GLUCOSE METER 237 mg/dL 70-110 H : TESTED A T [facility] 67[address] (BEAKER) ([facility] = [facility] 153) 06650: Filler Spreader/Techni rose ID = [id number] for AARON COTTRELL MR, EXTREMITY, LOWER, WITHOUT CONTRAST, [id number] 09:12:00FINAL REPORT MRI of the right and [...] Garza Verified Date/Time: 07/29/2019 09:12:01 Reading Location: [facility] Ortho Consult Reading Room MR, EXTREMITY, LOWER, WITHOUT CONTRAST, [id number] 09:12:00FINAL REPORT MRI of the right and [...] Garza Verified Date/Time: 07/29/2019 09:12:01 Reading Location: [facility] [id number] Ortho Consult Reading Room POCT-GLUCOSE [id number] 08:47:00 Test Item Value Reference Range Interpretation Comments POC-GLUCOSE METER 264 mg/dL 70-110 H : TESTED A T [facility] 67[address] ([facility]) (test code = [facility], 153) [address]: Filler Spreader/Techni rose ID = [id number] for AARON COTTRELL ISLET CELL AB [id number] 07:43:00 Test Item Value Reference Range Interpretation Comments ISLET CELL AB Refer to individual AUTOVERIFICATION (test Islet Cell Ab code = 2556) and/or Islet Cell Ab Titer results. POCT-GLUCOSE [id number] 21:27:00 Test Item Value Reference Range Interpretation Comments POC-GLUCOSE METER 130 mg/dL 70-110 H : [facility] ([facility]) (test code = [facility], 153) 90000: Filler Spreader/Techni rose ID = [id number] for FERNIE APARICIO BLOOD [id number] 13:00:00 Test Item Value Reference Range Interpretation Comments CULTURE (BEAKER) (test No growth in 5 days code = 1095) BLOOD [id number] 13:00:00 Test Item Value Reference Range Interpretation Comments CULTURE (BEAKER) (test No growth in 5 days code = 1095) POCT-GLUCOSE [id number] 12:57:00 Test Item Value Reference Range Interpretation Comments POC-GLUCOSE METER 138 mg/dL 70-110 H : [facility] ([facility]) (test code = [facility], 153) 356[address]: Filler Spreader/Techni rose ID = [id number] for [place] LLIS, JUAN ANTONIO POCT-GLUCOSE [id number] 08:43:00 Test Item Value Reference Range Interpretation Comments POC-GLUCOSE METER 226 mg/dL 70-110 H : [facility] ([facility]) (test code = [facility], 153) 369[address]: Filler Spreader/Techni rose ID = [id number] for [place] LLIS, JUAN ANTONIO POCT-GLUCOSE [id number] 21:11:00 Test Item Value Reference Range Interpretation Comments POC-GLUCOSE METER 254 mg/dL 70-110 H : Notified RN/MD: ([facility]) (test code = TESTED AT [place] [id number] 153) [facility], [address]: Filler Spreader/Techni rose ID = [id number] for FERNIE APARICIO POCT-GLUCOSE [id number] 21:02:00 Test Item Value Reference Range Interpretation Comments POC-GLUCOSE METER 177 mg/dL 70-110 H : TESTED A T [facility] 67[address] (BEAKER) (test code = LIZBETH Petit [facility], 1538) 81939: Filler Spreader/Techni rose ID = [id number] for [place] LLIS, JUAN ANTONIO POCT-GLUCOSE [id number] 12:31:00 Test Item Value Reference Range Interpretation Comments POC-GLUCOSE METER 215 mg/dL 70-110 H : TESTED A T [facility] 67[address] (BEAKER) (test code = MELLYNY Damaso [facility], 1538) 728[address]: Filler Spreader/Techni rose ID = [id number] for [place] LLIS, JUAN ANTONIO WOUND CULTURE + GRAM [id number] 10:10:00 Test Item Value Reference Interpretation Comments [...] gram negative (BEAKER) (test code = rods 840107) GRAM STAIN RESULT 2+ gram positive (BEAKER) (test code = rods 329008) GRAM STAIN RESULT <1+ gram negative (BEAKER) (test code = coccobacilli 228261) GRAM STAIN RESULT 2+ gram positive (BEAKER) (test code = cocci in pairs 760028) POCT-GLUCOSE [id number] 08:52:00 Test Item Value Reference Range Interpretation Comments POC-GLUCOSE METER 209 mg/dL 70-110 H : TESTED A T [facility] 67[address] (BEAKER) (test code = [facility], 153) 46132: Filler Spreader/Techni rose ID = [id number] for [place] LLIS, JUAN ANTONIO POCT-GLUCOSE [id number] 21:26:00 Test Item Value Reference Range Interpretation Comments POC-GLUCOSE METER 255 mg/dL 70-110 H : TESTED A T [facility] 6720 (BEAKER) (test code = [facility], 153) 25764: Filler Spreader/Techni rose ID = [id number] for CR MG BARTON POCT-GLUCOSE [id number] 17:34:00 Test Item Value Reference Range Interpretation Comments POC-GLUCOSE METER 227 mg/dL 70-110 H : TESTED A T [facility] 6720 (BEAKER) (test code = [facility], 153) 38976: Filler Spreader/Techni rose ID = [id number] for CHAVEZ CIARA, LETI POCT-GLUCOSE [id number] 11:28:00 Test Item Value Reference Range Interpretation Comments POC-GLUCOSE METER 282 mg/dL 70-110 H : TESTED A T [facility] 6720 (BEAKER) (test code = [facility], 1538) 17560: Filler Spreader/Techni rose ID = [id number] for CHAVEZ CIARA, LETI POCT-GLUCOSE [id number] 08:19:00 Test Item Value Reference Range Interpretation Comments POC-GLUCOSE METER 329 mg/dL 70-110 H : TESTED A T [facility] 6720 (BEAKER) (test code = [facility], [facility]) 39815: Filler Spreader/Techni rose ID = [id number] for AARON COTTRELL POCT-GLUCOSE [id number] 21:32:00 Test Item Value Reference Range Interpretation Comments POC-GLUCOSE METER 275 mg/dL 70-110 H : TESTED A T [facility] 6720 (BEAKER) (test code = [facility], 1538) 18888: Filler Spreader/Techni rose ID = [id number] for MG LANZA POCT-GLUCOSE [id number] 17:47:00 Test Item Value Reference Range Interpretation Comments POC-GLUCOSE METER 304 mg/dL 70-110 H : TESTED A T [facility] 6720 (BEAKER) (test code = [facility], 153) 177[address]: Filler Spreader/Techni rose ID = [id number] for MA JOHNNIE, ERIN URINE [id number] 15:21:00 Test Item Value Reference Range Interpretation Comments [facility] A >100,000 co l/mL (test code = 1095) Beta-hemo lytic streptococcus g roup B, by serologic al grouping CULTURE ([facility]) PROTEUS A 80-89,000 c ol/mL (test code [...] Tobramycin (test code R = 25) POCT-GLUCOSE [id number] 12:16:00 Test Item Value Reference Range Interpretation Comments POC-GLUCOSE METER 337 mg/dL 70-110 H : TESTED A T [facility] 6720 (BEA2B) (test code = [facility] Lasso [facility], 1538) 19360: Filler Spreader/Techni rose ID = [id number] for ERIN ARIZMENDI BASIC METABOLIC [id number] 10:39:00 Test Item Value Reference Range Interpretation [...] S NOT APPLICABLE FOR DIALYSIS PATIEN TS. Filler Spreader ID - JANET FPOCT-GLUCOSE [id number] 08:29:00 Test Item Value Reference Range Interpretation Comments POC-GLUCOSE METER 395 mg/dL 70-110 H : TESTED A T [facility] 6720 (BEAKER) (test code = [facility] [place] [facility], 1538) [address]: Filler Spreader/Techni rose ID = [id number] for ERIN ARIZMENDI CBC W/PLT COUNT & AUTO [id number] 06:40:00 Test Item Value Reference Range Interpretation [...] PERCENT (BEAKER) (test code = 2801) POCT-GLUCOSE [id number] 19:55:00 Test Item Value Reference Range Interpretation Comments POC-GLUCOSE METER 369 mg/dL 70-110 H : TESTED A T [facility] 6720 (BEAKER) (test code = [facility], 1538) [address]: Filler Spreader/Techni rose ID = [id number] for CR MG BARTON POCT-GLUCOSE [id number] 16:45:00 Test Item Value Reference Range Interpretation Comments POC-GLUCOSE METER 272 mg/dL 70-110 H : TESTED A T [facility] 6720 (BEAKER) (test code = [facility], 1538) [address]: Filler Spreader/Techni rose ID = [id number] for FRIEDA PALOMINO POCT-GLUCOSE [id number] 11:40:00 Test Item Value Reference Range Interpretation Comments POC-GLUCOSE METER 277 mg/dL 70-110 H : TESTED A T [facility] 6720 (BEAKER) (test code = [facility], 1538) [address]: Filler Spreader/Techni rose ID = [id number] for FRIEDA PALOMINO BASIC METABOLIC [id number] 10:22:00 Test Item Value Reference Range Interpretation [...] S NOT APPLICABLE FOR DIALYSIS PATIEN TS. Filler Spreader ID - NTPLIPID [id number] 10:17:00 Test Item Value Reference Range Interpretation [...] Borderline 130-159 High 160-189 Very High >=190 Filler Spreader ID - NTP POCT-GLUCOSE [id number] 08:28:00 Test Item Value Reference Range Interpretation Comments POC-GLUCOSE METER 388 mg/dL 70-110 H : TESTED A T [facility] 6720 (BEAKER) (test code = [place], 1538) [address]: Filler Spreader/Techni rose ID = [id number] for AARON COTTRELL HEMOGLOBIN [id number] 07:54:00 Test Item Value Reference Range Interpretation Comments HEMOGLOBIN A1C (BEAKER) (test code = 10.4 % 4.3-6.1 H 368) CBC W/PLT COUNT & AUTO [id number] 05:56:00 Test Item Value Reference Range Interpretation [...] PERCENT (BEAKER) (test code = 2801) POCT-GLUCOSE [id number] 23:47:00 Test Item Value Reference Range Interpretation Comments POC-GLUCOSE METER 359 mg/dL 70-110 H : Notified RN/MD: (FELICIANO) (test code = TESTED AT [facility] 6720 1538) [facility], [address]: Filler Spreader/Techni rose ID = [id number] for MICHELINE DOTY POCT-GLUCOSE [id number] 21:13:00 Test Item Value Reference Range Interpretation Comments POC-GLUCOSE METER 315 mg/dL 70-110 H : TESTED A T [facility] 6720 (BEAKER) (test code = [facility], 1538) [address]: Filler Spreader/Techni rose ID = [id number] for Sm Antonio morrisona POCT-GLUCOSE [id number] 21:13:00 Test Item Value Reference Range Interpretation Comments POC-GLUCOSE METER 331 mg/dL 70-110 H : TESTED A T [facility] 6720 (BEAKER) (test code = [facility], 1538) [address]: Filler Spreader/Techni rose ID = [id number] for RO JERRICA MCCLAIN POCT-GLUCOSE [id number] 10:30:00 Test Item Value Reference Range Interpretation Comments POC-GLUCOSE METER 341 mg/dL 70-110 H : TESTED A T [facility] 6720 (BEAKER) (test code = [facility], 1538) [address]: Filler Spreader/Techni rose ID = [id number] for Sm ith, Ana CBC W/PLT COUNT & AUTO [id number] 08:48:00 Test Item Value Reference Range Interpretation [...] (BEAKER) (test code = Present 1371) HEMOGLOBIN [id number] 06:39:00 Test Item Value Reference Range Interpretation Comments HEMOGLOBIN A1C (BEAKER) (test code = 10.5 % 4.3-6.1 H 368) LIPID [id number] 04:57:00 Test Item Value Reference Range Interpretation [...] Very High >=190 Specimen moderately lipemicBASIC METABOLIC [id number] 04:56:00 Test Item Value Reference Range Interpretation [...] NOT APPLICABLE FOR DIALYSIS PATIEN TS. POCT-GLUCOSE [id number] 21:53:00 Test Item Value Reference Range Interpretation Comments POC-GLUCOSE METER > mg/dL 70-110 HH : Notified RN/MD: TESTED (BEAKER) (test code = AT [facility] [address] [facility] 7910) [facility], [facility] 30: Filler Spreader/Techni rose ID = [id number] for DESIRAE MENDOZA U/S, ABDOMINAL, [id number] 19:54:00Reason for exam:->Evaluation of INFORMATION COORDINATOR shunt and for possible cyst or pseudocyst [...] MDReport Verified Date/Time: 07/22/2019 19:54:10 Reading Location: [facility] C013W Consult Reading Room POCT-GLUCOSE [id number] 19:34:00 Test Item Value Reference Range Interpretation Comments POC-GLUCOSE METER 474 mg/dL 70-110 HH : Notified RN/MD: (BEAKER) (test code = TESTED AT [facility] 6720 1538) [facility], [address]: Filler Spreader/Techni rose ID = [id number] for MARILYNN MAO URINALYSIS W/ REFLEX URINE [id number] 17:48:00 Test Item Value Reference Range Interpretation [...] = 2795) CBC W/PLT COUNT & AUTO [id number] 17:38:00 Test Item Value Reference Range Interpretation [...] (CELLAVISION)(BEAKER) 2 % 0-10 (test code = 0126) NEUTROPHILS - ABS 4.91 K/ul 1.78-5.38 (CELLAVISION)(BEAKER) [...] 3438) Received comment: User comments: Slide comments:POCT-GLUCOSE [id number] 16:27:00 Test Item Value Reference Range Interpretation Comments POC-GLUCOSE METER 424 mg/dL 70-110 HH : Notified RN/: (FELICIANO) (test code = TESTED AT [facility] 6740 8642) [place] [facility], [address]: Filler Spreader/Techni rose ID = [id number] for AK INSONU, MARILYNN CT, BRAIN, WITHOUT [id number] 15:31:00FINAL REPORT CT, BRAIN, WITHOUT CONTRAST CLINICAL [...] MDReport Verified Date/Time: 07/22/2019 15:31:08 Reading Location: [facility] C0[facility] Neuro Reading Room RAD, SHUNT [id number] 15:13:00Reason for exam:->concern for VPS malfunction FINAL [...] Buchanan Verified Date/Time: 07/22/2019 15:13:54 [facility] POCT-GLUCOSE METER 2019-07-22 11:38:00 Test Item Value Reference Range Interpretation Comments POC-GLUCOSE METER 394 mg/dL 70-110 H : TESTED A T [facility] 6720 (BEAKER) (test code = [place], 1538) [address]: Filler Spreader/Techni rose ID = [id number] for MARILYNN MAO HEMOGLOBIN [id number] 09:15:00 Test Item Value Reference Range Interpretation Comments HEMOGLOBIN A1C (BEAKER) (test code = 10.4 % 4.3-6.1 H 368) TSH/FREE T4 IF [id number] 07:54:00 Test Item Value Reference Range Interpretation Comments THYROID STIMULATING HORMONE 1.40 uIU/mL 0.35-4.94 (BEAKER) (test code = 772) POCT-GLUCOSE [id number] 07:48:00 Test Item Value Reference Range Interpretation Comments POC-GLUCOSE METER > mg/dL 70-110 HH : Notified RN/MD: TESTED (BEAKER) (test code = AT [address] 1538) [facility], 770 30: Filler Spreader/Techni rose ID = [id number] for MARILYNN SMITH BASIC METABOLIC [id number] 07:44:00 Test Item Value Reference Range Interpretation [...] NOT APPLICABLE FOR DIALYSIS PATIEN TS. LIPID [id number] 07:34:00 Test Item Value Reference Range Interpretation [...] mg/dL 70-110 H : TESTED A T [facility] 6720 (FELICIANO) (test code = [place], 1538) [address]: Filler Spreader/Techni rose ID = [id number] for CHERYLE LINDA LIGIA, FOOT, 2 VIEWS, [id number] 22:28:00Reason for exam:->osteomyletitis FINAL REPORT TECHNIQUE: Two [...] recommend MRI with contrast. Signed: Andrew Salinas MDReport Verified Date/Time: 07/21/2019 22:28:25 Reading Location: [facility] C013W Consult Reading Room RAD, FOOT, 2 VIEWS, [id number] 22:28:00Reason for exam:->osteomyletitsFINAL REPORT TECHNIQUE: Two views [...] recommend MRI with contrast. Signed: Andrew Salinas MDReport Verified Date/Time: 07/21/2019 22:28:25 Reading Location: [facility] B1 C013W Consult Reading Room POCT-GLUCOSE METER 2019-07-21 21:04:00 Test Item Value Reference Range Interpretation Comments POC-GLUCOSE METER 430 mg/dL 70-110 HH : Notified RN/MD: (FELICIANO) (test code = TESTED AT [facility] 6720 1538) [facility], [address]: Filler Spreader/Techni rose ID = [id number] for ALBERTO OLIVER ERTAPENEM:SUSC:PT:ISOLATE:ORDQN:[id number] 16:48:00Proteus mirabilisMemorial HermannURINE AND [id number] 16:48:00Negative (05/22/18 10:48 AM)[facility] [id number] 16:48:00Negative *NA*(05/22/18 10:48 AM)[facility] [id number] 16:48:00Negative *NA*(05/22/18 10:48 AM)[facility] [id number] 16:48:00Trace *ABN*(05/22/18 10:48 AM)[facility] [id number] 16:48:000.2[facility] STOOL 2018-05-22 16:48:00Large *ABN*(05/22/18 10:48 AM)[facility] STOOL 2018-05-22 16:48:00Negative (05/22/18 10:48 AM)[facility] STOOL 2018-05-22 16:48:00Negative (05/22/18 10:48 AM)[facility] STOOL 2018-05-22 16:48:00 Test Item Value Reference Range Interpretation Comments UA pH (test code = UA pH) 7.0 1 5.0-8.0 [facility] [id number] 16:48:00 Test Item Value Reference Range Interpretation Comments UA Spec Grav (test code = UA Spec 1.015 1 Grav) [facility] [id number] 16:48:00Yellow *NA*(05/22/18 10:48 AM) [facility] [id number] 16:48:00Clear (05/22/18 10:48 AM) [facility] [id number] 16:48:00None Seen (05/22/18 10:48 AM) [facility] [id number] 11:57:00Negative (05/22/18 5:57 AM) [facility]ICKKRXUTMJ3649-31-68 11:57:00 Test Item Value Reference Range Interpretation Comments PTT (test code = PTT) 33.4 s 22.9-35.8 [facility] JacksonRwijfyeWYGDPNMRUF7526-06-32 11:57:00 Test Item Value Reference Range Interpretation Comments PT (test code = PT) 13.7 s 12.0-14.7 [facility] JacksonYoihpinWGNKTLCBLC6233-66-75 11:57:00 Test Item Value Reference Range Interpretation Comments INR (test code = INR) 1.05 1 0.85-1.17 [facility]CHE[facility] PCUIO6888-08-87 10:50:84634Wxqlbcos HermannCHEM PANEL 2018-05-22 10:50:019.4[facility] HermannCHEM CEYGG8730-80-84 10:50:0128[facility]annCHEM PUGXE9143-28-74 10:50:0114[facility] HermannCHEM CDCTQ0442-15-53 10:50:0189[facility]annCHEM UNYKI0993-40-64 10:50:05344Dvpiktms HermannCHEM ZNUKO8110-66-31 10:50:014.2[facility] HermannCHEM WGIQM6292-99-41 10:50:96425 [facility] HermannCHEM ZYDBC8236-56-09 10:50:010.85[facility] HermannCHEM PANEL 2018-05-22 10:50:019.2[facility] PdffbcmNDQIOSQXNC6713-56-62 10:50:01 Test Item Value Reference Range Interpretation Comments ACT (TEG) Rapid (test code = ACT (TEG) 136 s 86-118 Rapid) [facility] CenterIglzcjfQYXEYWMATI2076-79-46 10:50:01 Test Item Value Reference Range Interpretation Comments Split Point Rapid (test code = Split 0.6 min Point Rapid) [facility] CenterRxhduavYNMVTYNBXC1617-54-43 10:50:01 Test Item Value Reference Range Interpretation Comments R-time Rapid (test code = R-time 0.9 min 0.4-0.7 Rapid) [facility] CenterBwungfjEQSPNFOQPP0783-06-58 10:50:01 Test Item Value Reference Range Interpretation Comments K-time Rapid (test code = K-time 1.4 min 0.6-2.3 Rapid) [facility] CenterQxzhzhgFYEXBTIDBI7900-78-79 10:50:01 Test Item Value Reference Range Interpretation Comments Angle Rapid (test code = Angle 71 degrees 64-80 Rapid) [facility] CenterVnpvgceUIYISXYGUL2287-57-39 10:50:0112.7[facility]annHEMATOLOGY 2018-05-22 10:50:01 Test Item Value Reference Range Interpretation Comments Max Amplitude Rapid (test code = Max 72 mm 52-71 Amplitude Rapid) [facility] CenterApdteouGUIKHRWDIS6229-71-38 10:50:010.1[facility]annHEMATOLOGY 2018-05-22 10:50:20802Uwlagzrj KxajonbPKAYYTFHTV5469-36-49 10:50:017.8[facility] WjaunchJKSSSLFSEP2854-09-87 10:50:01 Test Item Value Reference Range Interpretation Comments MCH (test code = MCH) 27.4 pg 27.0-31.0 [facility] CenterAzbqqtaVKAPOSXPJE7343-46-46 10:50:0180.7[facility] HermannHEMATOLOGY 2018-05-22 10:50:0134.0[facility] EnxefdwPQMFQATLMC1932-66-34 10:50:0118.9[facility] AzfiewrDTBHDTPATM5338-14-98 10:50:0143.3[facility] ZywfqaxIRTOTEKPDV7024-53-32 10:50:019.3[facility] IcjyxxwUTHGDRAFQH1901-71-17 10:50:0114.7[facility] NZFIJMHHWC5532-88-10 10:50:015.36[facility] EagmdxzABQHFUBECP2922-85-86 10:50:01 0.2[facility] NqymzfnZTFOTTELOE0741-44-21 10:50:010.1[facility] HermannHEMATOLOGY 2018-05-22 10:50:011.8[facility] IlltetxYXHNUXISRY1794-73-99 10:50:010.9[facility] NiqplmaADQDCNEWKF5836-86-38 10:50:016.3[facility] KhtlomhEWYACMZABZ7765-85-79 10:50:012.0[facility] KlawbynRCCZLAQXZI0483-96-54 10:50:0167.4[facility] Jason ZGCXKXLZDR1142-98-71 10:50:0119.9[facility] EqwygjzUACCBFCCPB3954-85-11 10:50:01 1.0[facility] RdrqkjeIWQEUIIKYT6082-75-20 10:50:019.7[facility] HermannCHEM PANEL 2017-11-19 05:42:00 Test Item Value Reference Range Interpretation Comments B/C Ratio (test code = B/C Ratio) 17 1 6-25 [facility] HermannCHEM OSKNH9048-98-58 05:42:004.3[facility] HermannCHEM PANEL 2017-11-19 05:42:00 Test Item Value Reference Range Interpretation Comments A/G Ratio (test code = A/G Ratio) 0.7 1 0.7-1.6 [facility] HermannCHEM WMURW0790-65-07 05:42:0014.4[facility] HermannCHEM PANEL 2017-11-19 05:42:69186Kssimpbn HermannCHEM BHOGR5453-42-33 05:42:0076Mem[facility] HermannCHEM VPFGU8658-76-99 05:42:0035Mem[facility] HermannCHEM VSMVT8527-16-71 05:42:002.8[facility] HermannCHEM OQXCT9013-51-16 05:42:007.1[facility] HermannCHEM PJFHP1637-23-12 05:42:008.7[facility] HermannCHEM BFAHE3744-80-37 05:42:0018 [facility] HermannCHEM XZAQY6455-93-42 05:42:000.3[facility] HermannCHEM PANEL 2017-11-19 05:42:004.4[facility] HermannCHEM PZDJU9016-79-04 05:42:34993Epdegmfc HermannCHEM CTVXA0665-10-03 05:42:0023Mem[facility] HermannCHEM HQXYD4205-49-32 05:42:77782Wkiostpg HermannCHEM YYSRM8611-16-39 05:42:001.01[facility] HermannCHEM DPUKQ5127-14-86 05:42:0017[facility] HermannCHEM EHFHZ7871-09-98 05:42:84179 [facility] NwrjaicTRAQQQTIPG5317-40-69 05:42:000.6[facility] HermannHEMATOLOGY 2017-11-19 05:42:004.8[facility] MwplegfAUOAAGYKXA4968-10-44 05:42:000.7[facility] ZgkhjptBUQRMFKLJI1662-56-75 05:42:001.9[facility] KntfokvBTKYFMKKNR4468-72-00 05:42:009.4[facility] ZjfhjohWNFKPQTMTN3121-89-01 05:42:000.2[facility] TXRGSDKZPI2731-94-18 05:42:002.9[facility] XtizwxjKMORDZBNFL4595-13-82 05:42:00 62.2[facility] HwxubkiTWUXCOJQGV9859-77-08 05:42:0024.9[facility] HermannHEMATOLOGY 2017-11-19 05:42:00 Test Item Value Reference Range Interpretation Comments MCH (test code = MCH) 27.5 pg 27.0-31.0 Memorial UatcbsmFBQNOVZYQT1872-40-85 05:42:0085.3[facility] HermannHEMATOLOGY 2017-11-19 05:42:0043.9[facility] UbxtzqlSAAUGGVLRL5241-78-89 05:42:0014.2[facility] UaddxrpSPOJBLGKIH0156-83-53 05:42:007.7[facility] NceqgifHKMXNZYEHW5334-79-77 05:42:005.15[facility] QksyxkaKAYWHXKFQK0145-34-51 05:42:008.4[facility] HXABURRUKC9572-32-31 05:42:0032.3[facility] EslecgsUQKCKGTIDC3939-39-21 05:42:00 17.3[facility] RfvqrwwSZXPNIUONN2422-38-58 05:42:32014Cfpolvbx HermannCHEM PANEL 2017-11-18 09:36:004.4[facility] HermannCHEM PNEVX2489-26-93 09:36:00 Test Item Value Reference Range Interpretation Comments A/G Ratio (test code = A/G Ratio) 0.6 1 0.7-1.6 [facility] HermannCHEM MXRZY4089-08-28 09:36:00 Test Item Value Reference Range Interpretation Comments B/C Ratio (test code = B/C Ratio) 17 1 6-25 [facility] HermannCHEM TXOAV2586-39-43 09:36:0011.3[facility] HermannCHEM PANEL 2017-11-18 09:36:30675Dtsjgshc HermannCHEM KDQTO9065-17-69 09:36:000.84[facility] HermannCHEM CLWDE1865-66-27 09:36:29915Orvjwgbs HermannCHEM WYQLU0788-49-09 09:36:0099[facility] HermannCHEM YCRHV5090-20-21 09:36:0014Mem[facility] HermannCHEM JQDHC7054-65-25 09:36:0079Mem[facility] HermannCHEM EUAYF5656-47-42 09:36:000.3 [facility] HermannCHEM ZTKCZ7546-89-17 09:36:0014Mem[facility] HermannCHEM PANEL 2017-11-18 09:36:0043Mem[facility] HermannCHEM YBUJZ5169-03-80 09:36:007.1[facility] HermannCHEM ZTFNC6394-23-24 09:36:002.7[facility] HermannCHEM TEIQL6413-49-61 09:36:009.2[facility] HermannCHEM NBSUQ7405-22-52 09:36:0021Mem[facility] HermannCHEM JYKYU7815-50-10 09:36:004.3[facility] HermannCHEM SBSPH8917-47-38 09:36:27901 Memorial EoksbobXKCHLKTVGY5260-53-12 09:36:0032.5[facility] HermannHEMATOLOGY 2017-11-18 09:36:0017.5[facility] PuewluaDTDLZECDIZ1245-07-01 09:36:83856Ygmsziur DuobacgXTUBYHWTUN7143-50-92 09:36:008.5[facility] DbkmegkANRGGJPMVS8199-29-26 09:36:006.6[facility] EujvkthSAHVECUFDR9819-24-94 09:36:005.17[facility] QOOQOJCWJB4238-52-67 09:36:0086.1[facility] HzcrbtwHWSHQTMKMQ4488-84-27 09:36:00 44.5[facility] PmszwwcASKTLBHNAR1930-48-73 09:36:00 Test Item Value Reference Range Interpretation Comments MCH (test code = MCH) 28.0 pg 27.0-31.0 [facility] IbcasznFGUXIRPRCS0511-84-76 09:36:0014.5[facility] HermannHEMATOLOGY 2017-11-18 09:36:001.7[facility] NbcpavjYVMRKMXHUN3546-96-44 09:36:000.7[facility] IktcgnzITLWFDRNGZ2365-20-17 09:36:000.2[facility] EagymgoWKOCTROCYQ3765-53-55 09:36:0026.1[facility] PgniweeIUHBJKLPEK8976-83-21 09:36:0059.3[facility] Jason PIGUDDNPDT6113-22-05 09:36:000.8[facility] WmjbilpQACZAOAZYD3167-02-94 09:36:00 10.5[facility] QoghsjpYZKKOMFQEB8757-69-08 09:36:003.3[facility] HermannHEMATOLOGY 2017-11-18 09:36:003.9[facility] VrantupOBYCVDPBOE7161-38-81 21:02:009.1[facility] HermannCHEM FMGJI3985-10-70 07:07:0074[facility] HermannCHEM FKBMB6917-15-40 07:07:0012Mem[facility] HermannCHEM SFMQW1197-71-39 07:07:000.75[facility] HermannCHEM VENJT5099-32-16 07:07:65953Zisuomsj HermannCHEM HQZRG5426-41-02 07:07:002.9 [facility] HermannCHEM FZQSJ6516-78-59 07:07:004.4[facility] HermannCHEM PANEL 2017-11-17 07:07:00 Test Item Value Reference Range Interpretation Comments A/G Ratio (test code = A/G Ratio) 0.7 1 0.7-1.6 [facility] HermannCHEM THPUP7503-23-03 07:07:000.4[facility] HermannCHEM PANEL 2017-11-17 07:07:0071Mem[facility] HermannCHEM QCRJO8227-39-43 07:07:0015Mem[facility] HermannCHEM BBMAY5392-90-58 07:07:0028[facility] HermannCHEM THMWM5039-03-95 07:07:004.4[facility] HermannCHEM ECNNQ3456-67-76 07:07:18250Wbnwuyjc HermannCHEM ACODP6685-42-43 07:07:0025[facility] HermannCHEM GEDXA6087-93-83 07:07:20105 [facility] HermannCHEM GRHOH6520-41-78 07:07:00 Test Item Value Reference Range Interpretation Comments B/C Ratio (test code = B/C Ratio) 16 1 6-25 [facility] HermannCHEM CQTHM5489-75-96 07:07:008.7[facility] HermannCHEM PANEL 2017-11-17 07:07:0012.4[facility] HermannCHEM RBMUT4808-10-22 07:07:007.3[facility] CspcsobCGSHAEYDJL1131-44-38 07:07:60855Pvrhojkg OluvrulQGZEQGSQDG1708-40-52 07:07:008.7[facility] SnonjkdXZPTFKHCNT8032-92-73 07:07:006.9[facility] HRXDUGPTVV4813-49-95 07:07:005.30[facility] KivfeprSTVLBIXARI7132-70-30 07:07:00 32.8[facility] RkvuimgAZVYJRLBTI9078-95-86 07:07:00 Test Item Value Reference Range Interpretation Comments MCH (test code = MCH) 27.9 pg 27.0-31.0 [facility] MqlhtijSLPENBDAHS1185-12-60 07:07:0014.8[facility] HermannHEMATOLOGY 2017-11-17 07:07:0085.0[facility] VdowzzoBSAWBASMOR3113-42-84 07:07:0045.1[facility] YkasrhtTUZFDGNLCC0439-43-34 07:07:0017.5[facility] QbzznrxSGLBKEGSTB0209-66-42 07:07:000.2[facility] OstymnaYIBONICALT7215-07-35 07:07:002.0[facility] BDVBQPDCJO5487-93-34 07:07:000.7[facility] QotgiolFWGRMUHEVV7822-20-57 07:07:002.4 [facility] NpbwrhaMGKCJJHBCL6971-19-92 07:07:000.6[facility] HermannHEMATOLOGY 2017-11-17 07:07:004.0[facility] TgbzsteEGKJKLTSLU3211-56-48 07:07:0010.4[facility] UdayhthREXYEIGGPU3191-46-23 07:07:00Normal (11/17/17 2:07 AM)[facility] Jason IQQFQDUMQY3805-51-06 07:07:0058.1[facility] BishmegNPJZCNWIBN2652-41-57 07:07:00 Normal (11/17/17 2:07 AM)[facility] PbjddeoOPVDCNEMRO0645-48-18 07:07:0028.5[facility] CtuiflcGVFEHNNXCS2830-20-90 16:07:000.1[facility] UecqebwNQJCKFELUN2051-71-75 16:07:00Moderate *ABN*(11/16/17 11:07 AM)[facility] ClmsvvuRRDKIRYFVE6859-42-77 06:43:0022.3[facility] HermannCHEM XQQDP2978-28-34 11:45:002.3[facility] HermannCHEM YWCOE1011-06-82 11:45:003.5[facility] OjabjtrSEMZTFZVVK4250-28-88 11:45:00 Test Item Value Reference Range Interpretation Comments PT (test code = PT) 14.0 s 12.0-14.7 [facility] CpwzoktUGXNIJJRAK6723-73-80 11:45:00 Test Item Value Reference Range Interpretation Comments PTT (test code = PTT) 37.6 s 22.9-35.8 [facility] YlvblsjKFRHLFWWWY4610-37-20 11:45:00 Test Item Value Reference Range Interpretation Comments INR (test code = INR) 1.08 1 0.85-1.17 [facility] DxrvuwpNSQIIIILMA7584-54-11 11:45:0013.1[facility]annIMMUNOLOGY 2017-11-15 11:45:0025.2[facility] HermannCHEM [id number] 03:06:000.9[facility] WzakjuxFNEAHOIXIV3579-63-58 03:06:005[facility] CrgvlvoCDGZEDWGMG3258-61-20 03:06:0015.8[facility] HnjuivsDCVWDTOKFE2742-38-42 00:44:00 Test Item Value Reference Range Interpretation Comments PT (test code = PT) 13.0 s 12.0-14.7 [facility] KismwahEVPWIIBXSE4211-99-08 00:44:00 Test Item Value Reference Range Interpretation Comments INR (test code = INR) 0.98 1 0.85-1.17 [facility] CvbylhqJEFPGPGNQA0569-75-67 00:44:00 Test Item Value Reference Range Interpretation Comments PTT (test code = PTT) 33.2 s 22.9-35.8 [facility] HermannBLOOD BANK [id number] 23:51:00Negative (11/14/17 6:51 PM) [facility] [id number] 23:35:000.2[facility] [id number] 23:35:00Negative (11/14/17 6:35 PM)[facility] STOOL [...] Spec 1.020 1 Grav) [facility] [id number] 23:35:00 Test Item Value Reference Range Interpretation Comments UA pH (test code = UA pH) 6.0 1 5.0-8.0 [facility] [id number] 23:35:00Yellow *NA*(11/14/17 6:35 PM) [facility] [id number] 23:35:00Trace *ABN*(11/14/17 6:35 PM) [facility] [id number] 23:35:00Slight Cloudy (11/14/17 6:35 PM) [facility] [id number] 23:35:000-2 (11/14/17 6:35 PM)[facility] WrylnktGCPDWFWPTQ2786-67-40 23:20:000.1[facility] PfbnoylFUXWOEHJGL6162-69-43 23:20:00Normal (11/14/17 6:20 PM)[facility] [id number] 16:22:00 Test Item Value Reference Range Interpretation Comments CULTURE (BEAKER) (test No growth in 5 days code = 1095) BLOOD [id number] 16:22:00 Test Item Value Reference Range Interpretation [...] Normal 762) CBC W/PLT COUNT & AUTO GCIJMMZTGKHJ4255-15-80 22:28:00 Test Item Value Reference Range Interpretation [...] K/ L 0.00-0.20 (test code = 417) 0.000.520.000.000.000.00BASI METABOLIC KEHVJ8906-34-65 11:11:00 Test Item Value Reference Range Interpretation [...] NOT APPLICABLE FOR DIALYSIS PATIEN TS. URINE [id number] 09:56:00 Test Item Value Reference Range Interpretation Comments CULTURE (BEAKER) (test <10,000 col/mL skin code = 1095) marilee COMPREHENSIVE METABOLIC [id number] 08:49:00 Test Item Value Reference Range Interpretation [...] PATIEN TS. CBC W/PLT COUNT & AUTO NPCJHLCDYJQP0908-43-94 08:46:00 Test Item Value Reference Range Interpretation [...] 0.00-0.20 (test code = 417) 0.00URINALYSIS W/ ARGPTKZADTW0266-25-05 20:36:00 Test Item Value Reference Range Interpretation [...] 520) 182 /HPF SOURCE(BEAKER) (test code = 1106) BASIC METABOLIC [id number] 17:00:00 Test Item Value Reference Range Interpretation [...] Specimen slightly ictericCBC W/PLT COUNT & AUTO [id number] 12:18:00 Test Item Value Reference Range Interpretation [...]
[2020-07-29] MEDS ORDERED: HYDROMORPHONE HCL 1 MG/ML INJ ONE ×2 (17:21→18:40)
[2020-07-29] MEDS ORDERED: PROMETHAZINE INJ 25 MG/ML AMP ONE (17:21)
--- NOTE | 2020-07-29 18:59 | EDPHYS ---
Physician Documentation [facility] Name: Roland Feldman Jr Age: 35 yrs Sex: Male : 1985 Arrival Date: 07/29/2020 Time: 15:18 Bed 5 Private MD: ED Physician Prince Warner HPI: 07/29 18:52 This 35 yrs old Black Male presents to ER via Wheelchair with complaints of Back Pain \T\ kdr Alcantara leaking. 18:52 The patient presents with pain that is acute, with no known mechanism of injury. The kdr symptoms are located in the Right flank. Onset: The symptoms/episode began/occurred suddenly, today. The pain does not radiate. Associated signs and symptoms: The patient has no apparent associated signs or symptoms. The problem was sustained from unknown cause. Modifying factors: The patient symptoms are alleviated by remaining still, the patient symptoms are aggravated by movement. Severity of symptoms: At their worst the symptoms were mild, moderate, just prior to arrival, in the emergency department the symptoms are unchanged. The patient has experienced similar episodes in the past, a few times. The patient has been recently seen at the [facility] Emergency Department, yesterday. Historical: - Allergies: 15:21 Amoxicillin; ll1 15:21 Bactrim; ll1 15:21 Ciprofloxacin; ll1 15:21 CLAVULANIC ACID; ll1 15:21 Demerol; ll1 15:21 Doxycycline; ll1 15:21 Levofloxacin; ll1 15:21 Morphine; ll1 15:21 PENICILLINS; ll1 15:21 Toradol; ll1 15:21 TRIMETHOPRIM; ll1 15:21 Vancomycin; ll1 15:21 Zofran; ll1 - PMHx: 15:21 Asthma; Cerebral Palsy; cluster headaches; decubitus ulcers on feet; GERD; ll1 Hydrocephalus; Hypertension; spina bifida; - PSHx: 15:21 CNS shunt; Heel Surgery L; Cholecystectomy; ll1 - Immunization history:: Flu vaccine is up to date. - Social history:: Smoking status: Patient reports the use of cigarette tobacco products, smokes one-half pack cigarettes per day. ROS: 18:52 Constitutional: Negative for fever, chills, and weight loss, Eyes: Negative for injury, kdr pain, redness, and discharge, ENT: Negative for injury, pain, and discharge, Neck: Negative for injury, pain, and swelling, Cardiovascular: Negative for chest pain, palpitations, and edema, Respiratory: Negative for shortness of breath, cough, wheezing, and pleuritic chest pain, Abdomen/GI: Negative for abdominal pain, nausea, vomiting, diarrhea, and constipation, : Negative for injury, bleeding, discharge, and swelling, He has a suprapubic cath that has been leaking MS/Extremity: Negative for injury and deformity, Skin: Negative for injury, rash, and discoloration, Neuro: Negative for headache, weakness, numbness, tingling, and seizure activity. Psych: Negative for depression, anxiety, suicide ideation, homicidal ideation, and hallucinations, Allergy/Immunology: Negative for hives, rash, and allergies, Endocrine: Negative for neck swelling, polydipsia, polyuria, polyphagia, and marked weight changes, Hematologic/Lymphatic: Negative for swollen nodes, abnormal bleeding, and unusual bruising. 18:52 Back: Positive for pain with movement, of the Right lateral flank. Exam: 18:52 Constitutional: This is a well developed, well nourished patient who is awake, alert, kdr and in no acute distress. Head/Face: Normocephalic, atraumatic. Eyes: Pupils equal round and reactive to light, extra-ocular motions intact. Lids and lashes normal. Conjunctiva and sclera are non-icteric and not injected. Cornea within normal limits. Periorbital areas with no swelling, redness, or edema. Neck: Trachea midline, no thyromegaly or masses palpated, and no cervical lymphadenopathy. Supple, full range of motion without nuchal rigidity, or vertebral point tenderness. No Meningismus. 18:52 Abdomen/GI: There is a suprapubic cath in place that has the smell of urine and appears to be leaking. No s/s of infection. Vital Signs: 15:18 BP 132 / 80; Pulse 95; Resp 18; Temp 98.0; Pulse Ox 92% on R/A; Weight 172.37 kg; ll1 Height 4 ft. 11 in. (149.86 cm); Pain 7/10; 20:00 BP 131 / 70; Pulse 90; Resp 16; Pulse Ox 99% ; rr5 15:18 Body Mass Index 76.75 (172.37 kg, 149.86 cm) ll1 Procedures: 18:52 Replaced suprapubic cath. The cath was replaced without problem. Once instilled, 50 cc kdr of urine was instilled and would return or leak out of his penis. On initial insertion, there was about 20 cc of urine returned. A post placement Gastrografin study was ordered and the cath appeared to be properly draining the bladder.. MDM: 18:58 Patient medically screened. kdr 19:01 Data reviewed: vital signs, nurses notes, radiologic studies. Counseling: I had a kdr detailed discussion with the patient and/or guardian regarding: the historical points, exam findings, and any diagnostic results supporting the discharge/admit diagnosis, radiology results, the need for outpatient follow up. 07/29 18:51 Order name: Pelvis EDMS Administered Medications: 17:15 Drug: Dilaudid 1 mg {Note: rass1.} Route: IM; Site: right deltoid; sv 18:28 Follow up: Response: No adverse reaction; No change in condition; RASS: Restless (+1) sv 17:15 Drug: Phenergan 25 mg Route: IM; Site: right deltoid; sv 18:28 Follow up: Response: No adverse reaction sv 18:24 CANCELLED (change to IM per ): Dilaudid 1 mg IVP once; RASS on ADMIN: hb Combtv4, Very Agttd3, Agttd2, Rstlss1, AlertClm0, Drwsy-1, Lt Sdtn-2, Mod Sdtn-3, Dp Sdtn-4, UnArsble-5 18:28 Drug: Dilaudid 1 mg {Note: rass1.} Route: IM; Site: left deltoid; sv 19:21 Follow up: Response: No adverse reaction mg2 19:20 Drug: Macrobid 100 mg Route: PO; mg2 19:20 Follow up: Response: No adverse reaction; Medication administered at discharge. mg2 Disposition: 07/29/20 18:58 Discharged to Home. Impression: Right lateral flank pain, Suprapubic Alcantara replacement. - Condition is Stable. - Discharge Instructions: Alcantara Catheter Care, Adult, [id number]. - Prescriptions for Macrobid 100 mg Oral Capsule - take 1 capsule by ORAL route every 12 hours for 10 days; 20 capsule. - Medication Reconciliation Form, Thank You Letter, Antibiotic Education form. - Follow up: Private Physician; When: 2 - 3 days; Reason: If symptoms return, Further diagnostic work-up, Recheck today's complaints, Continuance of care, Re-evaluation by your physician. - Problem is an acute exacerbation. - Symptoms have improved. Signatures: Dispatcher [employer] [facility] Hoa Cannon, RN RN Prince Warner MD MD [facility] Brittany Loya RN RN Horacio Velazquez RN RN mg2 Anthony Silveira RN RN ll1 Corrections: (The following items were deleted from the chart) 18:24 18:06 Dilaudid 1 mg IVP once; RASS on ADMIN: Combtv4, Very Agttd3, Agttd2, Rstlss1, hb AlertClm0, Drwsy-1, Lt Sdtn-2, Mod Sdtn-3, Dp Sdtn-4, UnArsble-5 ordered. kdr 18:51 18:08 Abdomen 1 View (KUB)+RAD.RAD.BRZ ordered. EDID EDMS 19:01 18:52 Replaced suprapubic cath. kdr kdr 20:04 18:58 07/29/2020 18:58 Discharged to Home. Impression: Right lateral flank pain, mg2 Suprapubic Alcantara replacement. Condition is Stable. Forms are Medication Reconciliation Form, Thank You Letter, Antibiotic Education, Prescription Opioid Use. Follow up: Private Physician; When: 2 - 3 days; Reason: If symptoms return, Further diagnostic work-up, Recheck today's complaints, Continuance of care, Re-evaluation by your physician. Problem is an acute exacerbation. Symptoms have improved. kdr
--- NOTE | 2020-07-29 18:59 | ER ---
Nurse's Notes [facility] Name: Roland Feldman Jr Age: 35 yrs Sex: Male : 1985 Arrival Date: 07/29/2020 Time: 15:18 Bed 5 Private MD: Diagnosis: Right lateral flank pain, Suprapubic Alcantara replacement Presentation: 07/29 15:18 Chief complaint: Patient states: Suprapubic catheter site leaking for 1 week. Seen here ll1 yesterday, we didn't have a suprapubic cath yesterday. He brought one from home today. + foul smell to urine, low back pain for 2 days. No fever. Coronavirus screen: Client denies travel out of the [place] in the last 14 days. At this time, the client does not indicate any symptoms associated with coronavirus-19. Ebola Screen: Patient denies travel to an Ebola-affected area in the 21 days before illness onset. Initial Sepsis Screen: Does the patient meet any 2 criteria? HR > 90 bpm. No. Patient's initial sepsis screen is negative. Does the patient have a suspected source of infection? Yes: Dysuria/Frequency/Urgency/UTI. Risk Assessment: Do you want to hurt yourself or someone else? Patient reports no desire to harm self or others. Onset of symptoms was July 22, 2020. 15:18 Method Of Arrival: Wheelchair ll1 15:18 Acuity: YUKI 3 ll1 Historical: - Allergies: 15:21 Amoxicillin; ll1 15:21 Bactrim; ll1 15:21 Ciprofloxacin; ll1 15:21 CLAVULANIC ACID; ll1 15:21 Demerol; ll1 15:21 Doxycycline; ll1 15:21 Levofloxacin; ll1 15:21 Morphine; ll1 15:21 PENICILLINS; ll1 15:21 Toradol; ll1 15:21 TRIMETHOPRIM; ll1 15:21 Vancomycin; ll1 15:21 Zofran; ll1 - PMHx: 15:21 Asthma; Cerebral Palsy; cluster headaches; decubitus ulcers on feet; GERD; ll1 Hydrocephalus; Hypertension; spina bifida; - PSHx: 15:21 [employer] shunt; Heel Surgery L; Cholecystectomy; ll1 - Immunization history:: Flu vaccine is up to date. - Social history:: Smoking status: Patient reports the use of cigarette tobacco products, smokes one-half pack cigarettes per day. Screenin:10 Abuse screen: Denies threats or abuse. Denies injuries from another. Nutritional sv screening: No deficits noted. Tuberculosis screening: No symptoms or risk factors identified. Fall Risk No fall in past 12 months (0 pts). Secondary diagnosis (15 points) impaired mobility, No IV (0 pts). Ambulatory Aid- None/Bed Rest/Nurse Assist (0 pts). Gait- Normal/Bed Rest/Wheelchair (0 pts) Mental Status- Oriented to own ability (0 pts). Total Smith Fall Scale indicates No Risk (0-24 pts). Assessment: 17:10 General: Appears in no apparent distress. uncomfortable, obese, well developed, sv Behavior is calm, cooperative, appropriate for age. Pain: Complains of pain in back Pain currently is 7 out of 10 on a pain scale. Neuro: Level of Consciousness is awake, alert, obeys commands, Oriented to person, place, time, situation, Paralysis in bilateral leg(s). Respiratory: Respiratory effort is even, unlabored, Respiratory pattern is regular, symmetrical. : suprapubic catheter in place to gravity drainage. Derm: Skin is pink, warm \T\ dry. 18:04 Reassessment: Dr Warner at bedside to place new suprapubic catheter. sv 18:28 Reassessment: Patient appears in no apparent distress at this time. No changes from sv previously documented assessment. Patient and/or family updated on plan of care and expected duration. Pain level reassessed. Patient is alert, oriented x 3, equal unlabored respirations, skin warm/dry/pink. 19:30 General: Appears in no apparent distress. comfortable, Behavior is calm, cooperative, rr5 appropriate for age, for discharge awaiting for his ride. Neuro: Level of Consciousness is awake, alert, Oriented to person, place, time. Cardiovascular: Capillary refill < 3 seconds Patient's skin is warm and dry. Respiratory: Airway is patent Respiratory effort is even, unlabored, Respiratory pattern is regular, symmetrical. 20:04 Reassessment: Patient appears in no apparent distress at this time. Patient is alert, rr5 oriented x 3, equal unlabored respirations, skin warm/dry/pink. discharge instruction given and explained without complaints made. Vital Signs: 15:18 BP 132 / 80; Pulse 95; Resp 18; Temp 98.0; Pulse Ox 92% on R/A; Weight 172.37 kg; ll1 Height 4 ft. 11 in. (149.86 cm); Pain 7/10; 20:00 BP 131 / 70; Pulse 90; Resp 16; Pulse Ox 99% ; rr5 15:18 Body Mass Index 76.75 (172.37 kg, 149.86 cm) ll1 ED Course: 15:18 Patient arrived in ED. ll1 15:20 Triage completed. ll1 15:21 Arm band placed on. ll1 16:45 Hoa Cannon, RN is Primary Nurse. sv 16:57 Prince Warner MD is Attending Physician. kdr 17:10 Patient has correct armband on for positive identification. Bed in low position. Call sv light in reach. Side rails up X2. 17:22 Door closed. Lights dimmed. Warm blanket given. sv 18:31 X-ray(s) taken. sv 19:01 Pelvis In Process Unspecified. EDMS 19:15 Primary Nurse role handed off by Hoa Cannon, NAIF sv 20:03 No provider procedures requiring assistance completed. Patient did not have IV access rr5 during this emergency room visit. Administered Medications: 17:15 Drug: Dilaudid 1 mg {Note: rass1.} Route: IM; Site: right deltoid; sv 18:28 Follow up: Response: No adverse reaction; No change in condition; RASS: Restless (+1) sv 17:15 Drug: Phenergan 25 mg Route: IM; Site: right deltoid; sv 18:28 Follow up: Response: No adverse reaction sv 18:24 CANCELLED (change to IM per ): Dilaudid 1 mg IVP once; RASS on ADMIN: hb Combtv4, Very Agttd3, Agttd2, Rstlss1, AlertClm0, Drwsy-1, Lt Sdtn-2, Mod Sdtn-3, Dp Sdtn-4, UnArsble-5 18:28 Drug: Dilaudid 1 mg {Note: rass1.} Route: IM; Site: left deltoid; sv 19:21 Follow up: Response: No adverse reaction mg2 19:20 Drug: Macrobid 100 mg Route: PO; mg2 19:20 Follow up: Response: No adverse reaction; Medication administered at discharge. mg2 Outcome: 18:58 Discharge ordered by . kdr 20:03 Discharged to home via wheelchair. rr5 20:03 Condition: stable 20:03 Discharge instructions given to patient, Instructed on discharge instructions, follow up and referral plans. medication usage, Demonstrated understanding of instructions, follow-up care, medications, Prescriptions given X 1. 20:04 Patient left the ED. mg2 Signatures: Dispatcher [employer] EDMS Hoa Cannon RN RN Prince Warner MD MD kdr Horacio Velazquez RN RN mg2 Dillon Chung RN RN rr5 Anthony Silveira RN RN ll1 Brittany Loya RN
--- NOTE | 2020-07-29 19:09 | RAD REPORT ---
EXAM DESCRIPTION: RAD - Pelvis - 07/29/2020 7:00 pm CLINICAL HISTORY: infuse gastrgraffin to check suprapubic presley placement Pelvic pain COMPARISON: Pelvis dated 05/03/2019 FINDINGS: No fluoroscopy was performed. Two plain radiographs of the pelvis were obtained. Contrast was injected into the suprapubic catheter and appears to fill the bladder.
[2020-07-29] MEDS ORDERED: NITROFURAN MACRO 100 MG CAP PO ONE (19:31)
[2020-07-29 20:10] VITALS: TEMP 98
[2020-07-29 20:11] VITALS: BP 131/70; O2SAT 99
== END 2020-07-29 20:04 | disposition home or self-care (01) ==
LOC: ER 15:17 → SUPCPDRO 15:17 → ER 20:04
PROC: 0T2BX0Z Change Drainage Device in Bladder, External Approach (ICD-10-PCS; principal; 2020-07-29)
DX: T83.038A Leakage of other urinary catheter, initial encounter (principal); I10 Essential (primary) hypertension; G80.9 Cerebral palsy, unspecified; Q05.9 Spina bifida, unspecified; F17.210 Nicotine dependence, cigarettes, uncomplicated; Z88.0 Allergy status to penicillin; Z88.1 Allergy status to other antibiotic agents; Z88.3 Allergy status to other anti-infective agents; Z88.5 Allergy status to narcotic agent; Z88.8 Allergy status to other drugs, medicaments and biological substances; Z98.2 Presence of cerebrospinal fluid drainage device
CPT/HCPCS: 72170; 96372; 99283; 51702; J2550; J1170 ×2

== ENCOUNTER 2021-03-06 15:25 | Emergency (ER) | payer OTHER ==
[2021-03-06] MEDS ORDERED: FENTANYL CITR 100 MCG/2 ML ONE ×2 (20:16→22:51)
[2021-03-06 20:48] LABS: Urine Bacteria LOADED /HPF (NONE SEEN)
[2021-03-06 20:48] LABS: Absolute Lymphocytes (CBC) 1.7 K/uL (0.7-4.9); Basophils % 0.5 % (0-1.3); Hematocrit 47.1 % (39.6-49.0); Lymphocytes % 17.7 % (15.3-44.8); MPV 7.8 fL (7.6-11.3); RBC Red Blood Cell Count 5.21 M/uL (4.33-5.43)
[2021-03-06 21:08] LABS: ALT/SGPT 144 U/L (12-78); AST/SGOT 28 U/L (15-37); Albumin 3.1 g/dL (3.4-5.0); Alkaline Phosphatase 159 U/L (45-117); BUN Blood Urea Nitrogen 14 mg/dL (7-18); Bicarbonate 27 mmol/L (21-32); Bilirubin Direct 0.2 mg/dL (0-0.2); Bilirubin Total 0.6 mg/dL (0.2-1.0); Glucose Level 94 mg/dL (74-106); Lipase 60 U/L (73-393); Potassium 3.9 mmol/L (3.5-5.1); Protein, Total 7.8 g/dL (6.4-8.2); Sodium Level 143 mmol/L (136-145)
[2021-03-06] MEDS ORDERED: CEFTRIAXONE/SWI 1gm 1 GM/10 ML SYR ONE (22:42)
--- OUTSIDE RECORDS SUMMARY | 2021-03-06 22:49 | XMS REPORT | Continuity of Care Document ---
:1985 Author Organization [facility] t Address [address] [place] [address] Care Team Providers Name Role Phone Sharpless Primary Care Physician Analia MURPHYP, F Attending Clinician MITCHELL Attending Clinician Unavailable Alex De Jesus Attending Clinician Percy Quesada Attending Clinician LAMAR GENAO Attending Clinician Unavailable ALEX Admitting Clinician Unavailable Keivn Rowland Admitting Clinician Percy Quesada Admitting Clinician LAMAR GENAO Admitting Clinician Unavailable Problems Condition Condition Condition Status Onset Resolution Last Treating Co mments Source Name Details Category Date Date Treatment Clinician Date Hyperglyce Hyperglyce Disease Active [facility] ped[facility] 07[facility]21 [facility] without without 00:[facility]: [facility]osis [facility]osis [facility] HEADACHE Diagnosis Active 2017-072018-05-27 Alex العلي 07-22 22:05:00 l HEADACHE 00:00: Christian n 00 Active 05/22/2018 [facility] SHUNT Diagnosis Active 2017-11-14 Tony JHAVERI 11-14 20:00:00 l N SHUNT 00:00: Jason MALFUNCTIO 00 N Active 11/14/2017 [facility] ACUTE Diagnosis Active 2017-11-20 Mem oria HEADACHE 03 09:20:00 l ACUTE 00:00: Jason HEADACHE 00 Active 11/14/2017 [facility] Spina Spina Disease Active [facility] bifida bifida 12-24 [facility] - 00:00: Medical 00 [place] Pyelonephr Pyelonephr Disease Active [facility] itis itis 12-23 [facility] - 00:[facility]: Medical 00 [place] Spina Problem 2018-12-09 Memor ia bifida, 14:14:02 l unspecifie Spina Kristen nn d bifida, unspecifie d 12/09/2018 [facility] Nausea Problem 2018-12-09 Memor ia with 14:14:02 l vomiting, Nausea Kristen nn unspecifie with d vomiting, unspecifie d 12/09/2018 [facility] Diplopia Problem 2018-12-09 Mem oria 14:14:02 l Diplopia Christian n 12/09/2018 [facility] 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, 14:14:02 l unspecifie Cerebral He rmann d palsy, unspecifie d 12/09/2018 [facility] 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-09 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:14:02 l other Acquired Christian n specified absence of parts of other digestive specified tract parts of digestive tract 12/09/2018 [facility] Nicotine Problem 2018-12-09 Mem oria dependence 14:14:02 l , Nicotine Christian n cigarettes dependence , , uncomplica cigarettes odalys , uncomplica odalys 12/09/2018 [facility] Presence Problem 2018-12-09 Mem oria of 14:14:02 l cerebrospi Presence He rmann nal fluid of drainage cerebrospi device nal fluid drainage device 12/09/2018 [facility] Allergy Problem 2018-12-09 Erwin benjamin status to 14:14:02 l other Allergy Jason antibiotic status to agents other status antibiotic agents status 12/09/2018 [facility] Allergy Problem 2018-12-09 Erwin benjamin status to 14:14:02 l other Allergy Jason drugs, status to medicament other s and drugs, biological medicament substances s and status biological substances status 12/09/2018 [facility] Allergy Problem 2018-12-09 Erwin benjamin status to 14:14:02 l narcotic Allergy Kristen nn agent status to status narcotic agent status 12/09/2018 [facility] Asthma Problem Resolve 2019-03-06 Erwin benjamin (disorder) d 01:05:55 l Asthma [place] (disorder) Resolved Problem 03/06/2019 [facility] Bronchitis Problem Resolve 2019-03-06 Memoria (disorder) d 01:05:55 l Jason Bronchitis (disorder) Resolved Problem 03/06/2019 [facility] Cerebral Problem Resolve 2019-03-06 Me moria palsy d 01:05:55 l (disorder) Cerebral He rmann palsy (disorder) Resolved Problem 03/06/2019 [facility] Hydrocepha Problem Resolve 2019-03-06 Memoria bam d 01:05:55 l (disorder) Christian n Hydrocepha bam (disorder) Resolved Problem 03/06/2019 [facility] Osteomyeli Problem Resolve 2019-03-06 Memoria tis d 01:05:55 l (disorder) Christian n Osteomyeli tis (disorder) Resolved Problem 03/06/2019 [facility] Acute pain Problem Active 2019-03-06 M emoria (finding) 01:05:55 l Acute [place] pain (finding) Active Problem 03/06/2019 [facility] Headache Problem Active 2019-03-06 Mem oria (finding) 01:05:55 l Headache Christian n (finding) Active Problem 03/06/2019 [facility] History of Past Illness Condition Condition Condition Status Onset Resolution Last Treating Co mments Source Name Details Category Date Date Treatment Clinician Date Headache Problem 2017-2018-12-09 2018-12-09 Memoria -08 14:14:02 14:14:02 l Headache 06:00: Christian n 00 05/22/2018 12/09/2018 [facility] Allergies, Adverse Reactions, Alerts Allergy Allergy Status Severity Reaction(s) Onset Inactive Treating Comm ents Source Name Type Date Date Clinician Sulfamet Propensi Active Hives 2016- [facility] to [facility] - -Trimeth adverse 00:00: Medical oprim [...] adverse 00:00: Medical reaction 00 Center s Toradol Toradol Active Memoria l [place] Minocin Minocin Active Memoria l Jason Zofran Zofran Active [facility]oria [facility] [place] Levaquin Levaquin Active Memori a l Jason Bactrim Bactrim Active Memoria l Jason amoxicil amoxicil Active [facility] [place] morphine morphine Active Memori a l Jason Morphine Adverse Active Info Not [facility] Sulfate Reaction Available [facility] Levaquin Adverse Active Info Not [facility] Reaction Available [facility] Zofran Adverse Active Info Not [facility] Reaction Available [facility] Social History Social Habit Start Date Stop Date Quantity Comments Source History of tobacco Cigarette Smoker [facility] - use [facility] Sex Assigned At [facility] - [facility] Cigarettes smoked 2016-12-25 2016-12-25 [facility] - current (pack per 00:00:00 00:00:00 Medical Center day) - Reported Smoking Status Start Date Stop Date Source Social History 2018-05-22 11:26:10 [facility] Medications Ordered Filled Start Stop Current Ordering [...] Take [address] [facility] (CELEXA) 40 -17 -16 tablet (40 L ukes - MG [...] Center injection (three) times daily before meals. normal 2017-07 No 1,000 mL, Memori a saline 0.9% 1-08 Rate: 100 l IV 1,000 mL 11:04: ml/hr, Herm Infuse over: 10 hr, Route: IV, Dosing Weight 131.818 kg, Total Volume: 1,000, Start date: 05/22/18 5:04:00 COPY WRITER, Duration: 30 day, Stop date: 06/21/18 5:03:00 COPY WRITER, 2.4, m2 Magnesium 2017-07 No Notes: Memori a Sulfate 07-22 WASTE: F/P l 10:36: - Sink; E Jason - Municipal Trash Bin Isolyte S 2017-07 No Notes: Memori a PH-7.4 07-22 (Same as: l (Bolus) IV 10:36: Isolyte S He rmann PH 7.4) Phenergan 2017-07 No 12.5 mg, Erwin benjamin 07-22 0.5 mL, l 10:35: Route: IVPB, Drug form: INJ, ONCE, Dosing Weight 131.818, kg, Priority: STAT, Start date: 05/22/18 4:35:00 COPY WRITER, Stop date: 05/22/18 4:35:00 COPY WRITER Citalopram Citalopram Yes Na Gamble [address] Hydrobromid Hydrobromid 7-16 L ukes - e e 00:00: Memoria 00 l [facility] Seroquel Seroquel Yes Na Gamble [address] [facility] 7-16 [facility] - 00:00: Memoria 00 l [facility] Docusate Yes 100 mg = 1 Mem oria Sodium 100 5-08 cap, PO, l MG Oral 14:56: BID, 0 [place] Capsule 00 Refill(s) Zosyn Yes 0 Memoria 5-08 Refill(s) l 14:56: Jason 00 celecoxib Yes 200 mg = 1 Me moria 200 mg oral 5-08 cap, PO, l capsule 14:56: BID, 0 [place] 00 Refill(s) ascorbic 0 Yes 500 mg = 1 Mem oria acid 5-08 tab, PO, l 14:56: BID, 0 [place] 00 Refill(s) acetaminoph Yes 1,000 mg = [...] n 5-08 Daily, 0 l 14:56: Refill(s) [place] 00 methocarbam Yes 1,000 mg = Memoria ol 500 mg 5-08 2 tab, PO, l oral tablet 14:56: Q8H, 0 Herm philip 00 Refill(s) LORazepam Yes 0.5 mg = 1 Me moria 0.5 mg oral 5-08 tab, PO, l tablet 14:56: Q8H, PRN Jason 00 Anxiety, 0 Refill(s) Lidocaine Yes 3 patch, Erwin benjamin Hydrochlori 5-08 TOP, l de 0.05 14:56: Daily, Jason MG/MG 00 Remove Transdermal after 12 Patch hours, 0 [Lidoderm] Refill(s) Robaxin No Notes: Memoria 5-06 (Same l 21:00: as:Robaxin Jason 00 ) [...] patch 5-06 Remove l 02:00: patch 12 [place] 00 hours after applicatio n each day. Oxycodone No Notes: Memori a Hydrochlori 5-05 (Same as: l de 5 MG 22:01: Roxicodone Herm philip Oral Tablet 00 ) Celebrex No Notes: Memoria 5-05 NSAID. l 22:00: Please [place] 00 check indication . Not for seizure. (Same As: CeleBREX) Vancomycin No 2001 mg: Me moria 5-05 infuse l 21:00: over 2.5 [place] 00 hours Lidocaine No Notes: Memori a [...] 5-04 not give l 22:40: IV push. [place] (Same as: Phenergan) Dilaudid No Notes: Memoria 5-04 Same as l 22:40: Dilaudid [place] 00 Tramadol No Notes: Not Mem oria 5-04 to exceed l 22:00: 400mg/day. Jason 00 (Same As: Ultram) gabapentin No Notes: Memor ia 5-04 (Same as: l 22:00: Neurontin) [place] 00 Acetaminoph No Notes: Max Memoria en 5-04 acetaminop l 22:00: hen 4000 [place] 00 mg/day (4 gm/day). (Same as: Tylenol Extra Strength) Robaxin No Notes: Memoria 5-04 (Same l 22:00: as:Robaxin Jason 00 ) Oxycodone No Notes: Memori a Hydrochlori 5-04 (Same as: l de 5 MG 21:33: Roxicodone Herm philip Oral Tablet 00 ) Beneprotein No Notes: Erwin benjamin 7 gm pkt 5-04 (Same as: l 21:30: Beneprotei [place] 00 n) Acetaminoph No 1 tab, PO, Memoria en 325 MG / 5-04 TID, 0 l Oxycodone 17:12: Refill(s) Her manzo Hydrochlori 00 de 10 MG Oral Tablet [...] Not Crush) Zinc No Notes: Memoria Sulfate 11-15 (Zinc l 14:00: sulfate capsule) - 220 mg Zinc sulfate = 50 mg elemental zinc Same as Zinc Sulfate ascorbic No Notes: Memoria acid - (Same as: l 14:00: Vitamin C) multivitami No Notes: Erwin benjamin n - (Same l 14:00: as:Thera) WASTE: F/P - [...] moria 5-04 infuse l 07:00: over 2.5 hours For adult patients only: Round to nearest 250 mg per Medical Staff approval MEDICATION WASTE Product Size: 1000 mg Product Wasted: ___ mg Enoxaparin No Notes: Memor ia - (Same as: l 07:00: Lovenox) [place] 00 Sodium No 1,000 mL, Memori a Chloride 5-04 Rate: 125 l 0.9% IV 06:46: ml/hr, Jason 1,000 mL 00 Infuse over: 8 hr, Route: IV, Dosing Weight 127.27 kg, Total Volume: 1,000, Start date: 11/15/17 1:46:00 CDT, Duration: 30 day, Stop date: 12/15/17 1:45:00 CDT, 2.44, m2 Saline No Notes: Memoria Flush 0.9% 5-04 (Same as: l 06:46: BD Jason Posiflush) Acetaminoph No Notes: Do M emoria en 5-04 not exceed l 06:46: 4 gm/day. Jason (Same as: Tylenol) Acetaminoph No Notes: Erwin benjamin en 325 MG / 5-04 (Same as: l Hydrocodone 06:46: [place] Kristen nn Bitartrate 00 325/5) Do 5 MG Oral not exceed Tablet 4gm/day of acetaminop hen. Reglan No Notes: Memoria 5-04 (Same as: l 04:27: Reglan) [place] Benadryl No Notes: Memoria 5-04 (Same as: l 04:27: Benadryl) [place] Magnesium No Notes: Memori a Sulfate 5-04 WASTE: F/P l 04:26: - Sink; E Jason 00 - [facility] Trash Bin Sodium No 1,000 mL, Memori a Chloride 5-04 1000 l 0.9% 04:26: ml/hr, Jason (Bolus) IV 00 Infuse Over: 1 hr, Route: IV, 1,000, Drug form: INJ, ONCE, Priority: STAT, Dosing Weight 127.273 kg, Start date: 11/14/17 23:26:00 CDT, Stop date: 11/14/17 23:26:00 CDT Zosyn 2017- No 4.5 gm, Memoria 5-04 Route: l 04:10: IVPB, Jason 00 ONCE, Dosing Weight 127.273, kg, Priority: STAT, Start date: 11/14/17 23:10:00 CDT, Stop date: 11/14/17 23:10:00 CDT, ABX Indication : Bacteremia Vancomycin 2017- No 2001 mg: Me moria 11-15 infuse l 04:10: over 2.5 [place] 00 hours For adult patients only: Round [...] en 11-15 acetaminop l 02:56: hen 4000 [place] 00 mg/day (4 gm/day). (Same as: Tylenol Extra Strength) Rocephin No Notes: Memoria 11-15 (Same As: l 02:21: Rocephin). [place] 00 MEDICATION WASTE Product Size: 1000 mg Product Wasted: _0__ mg Morphine No 4 mg, Memoria 11-15 Route: l 00:05: IVP, ONCE, Dosing Weight 127.273, kg, Priority: STAT, Start date: 11/14/17 19:05:00 CDT, Stop date: 11/14/17 19:05:00 CDT Benadryl No Notes: Memoria 5-03 (Same as: l 23:14: Benadryl) Jason 00 Benadryl No Notes: Memoria 5-03 (Same as: l 22:56: Benadryl) Jason 00 Morphine No 4 mg, 1 Memori a 5-03 mL, Route: l 22:56: IVP, Drug form: SOLN, ONCE, Dosing Weight 127.273, kg, Priority: STAT, Start date: 11/14/17 17:56:00 CDT, Stop date: 11/14/17 17:56:00 CDT Tylenol Tylenol Yes Na Gamble [address] with with as needed [facility] - Codeine #4 Codeine #4 Mem oria l [facility] Macrobid Macrobid Yes Na Gamble [address] [facility] Pantoprazol Pantoprazol Yes Na Gamble [address] e Sodium e Sodium [facility] Collagenase Collagenase Yes Na Gamble [address] [facility] applicatio [facility] - n to Memoria affected l area [facility] Clinics Vital Signs Vital Name Observation Time Observation Value Comments Source Respitory Rate 2018-05-22 17:30:00 Memori al [place] Systolic (mm Hg) 2018-05-22 17:30:00 Erwin rial [place] Diastolic (mm Hg) 2018-05-22 17:30:00 Mem orial [place] Temperature Oral (F) 2018-05-22 17:30:00 98.4 F [facility] [place] Temperature Oral (F) 2018-05-22 16:23:00 98.6 F [facility] [place] Systolic (mm Hg) 2018-05-22 16:23:00 Erwin rial [place] Diastolic (mm Hg) 2018-05-22 16:23:00 Mem orial Jason Respitory Rate 2018-05-22 14:00:00 Memori al Jason Systolic (mm Hg) 2018-05-22 14:00:00 Erwin rial Jason Diastolic (mm Hg) 2018-05-22 14:00:00 Mem orial Jason Respitory Rate 2018-05-22 13:30:00 Memori al Jason BMI Calculated 2018-05-22 10:16:00 Memori al [place] Height 2018-05-22 10:16:00 149.86 cm [facility] [place] Weight 2018-05-22 10:16:00 [facility] [place] Heart Rate 2018-05-22 10:16:00 Memorial Jason Temperature Oral (F) 2018-05-22 10:16:00 97.9 F [facility] [place] Temperature Oral (F) 2017-11-19 13:40:00 97.2 F [facility] [place] Systolic (mm Hg) 2017-11-19 13:40:00 Erwin rial Jason Diastolic (mm Hg) 2017-11-19 13:40:00 Mem orial [place] Heart Rate 2017-11-19 13:40:00 Memorial [place] Respitory Rate 2017-11-19 13:40:00 Memori al [place] Heart Rate 2017-11-19 05:24:00 Memorial Jason Systolic (mm Hg) 2017-11-19 05:24:00 Erwin rial Jason Diastolic (mm Hg) 2017-11-19 05:24:00 Mem orial Jason Respitory Rate 2017-11-19 05:24:00 Memori al [place] Temperature Oral (F) 2017-11-19 05:24:00 98.1 F Memorial [place] Respitory Rate 2017-11-19 01:15:00 Memori al [place] Systolic (mm Hg) 2017-11-19 01:15:00 Erwin rial Jason Diastolic (mm Hg) 2017-11-19 01:15:00 Mem orial Jason Heart Rate 2017-11-19 01:15:00 Memorial Jason Temperature Oral (F) 2017-11-19 01:15:00 98.1 F Memorial [place] Weight 2017-11-18 14:00:00 Memorial [place] Weight 2017-11-17 14:00:00 Memorial [place] Weight 2017-11-15 14:00:00 Memorial Jason BMI Calculated 2017-11-15 05:43:00 Memori al [place] Height 2017-11-15 05:43:00 162.56 cm Memorial Jason Height 2017-11-14 22:41:00 149.86 cm Memorial Jason BMI Calculated 2017-11-14 22:41:00 Memori al Jason Procedures Procedure Date / Time Performing Clinician Source Performed Cholecystectomy [facility] [place] 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 Plan of Care Planned Activity Planned Date Details Comments Source Future Scheduled 2022-07-[address] [facility] Test 00:00:00 (procedure) [code = [facility] 95007100] Future Scheduled 2021-03-[address] [facility] Test 00:00:00 (Season Ended) [code = [facility] INFLUENZA VACCINE (Season Ended)] Future Scheduled 2020-07-[address] [facility] - Test 00:00:00 (12+) [code = Medical Center DEPRESSION SCREENING (12+)] Future Scheduled 2019-10-[address] [address] [facility] - Test 00:00:00 measurement [facility] (procedure) [code = 70638241] Future Scheduled 2004 DTAP/TDAP/TD VACCINES [facility] Test 00:00:00 (1 - Tdap) [code = Medical C enter DTAP/TDAP/TD VACCINES (1 - Tdap)] Future Scheduled 2003 HEPATITIS C [facility]CRE[facility]ING [facility] Test 00:00:00 [code = HEPATITIS C Medical Center SCREENING] Future Scheduled 1997 COVID-19 VACCINE (1) [facility] - Test 00:00:00 [code = COVID-[address] VACCINE (1)] Future Scheduled 1995 DIABETIC EYE EXAM [facility] - Test 00:00:00 [code = DIABETIC EYE Medical Center EXAM] Future Scheduled 1995 Urine screening for [facility] - Test 00:00:00 protein (procedure) [facility] [code = 213844724] Future Scheduled [address] [facility] - Test 00:00:00 0-64 YRS (1 of 1 - Medical C enter PPSV23) [code = PNEUMOCOCCAL VACCINE 0-64 YRS (1 of 1 - PPSV23)] Encounters Start End Encounter Admission Attending Care Care Encounter Source Date/Time Date/Time Type Type Clinicians Facility Department ID 2021-02-21 2021-02-21 Outpatient [facility] [id number] 2021-01-31 2021-01-31 Outpatient [facility] [id number] [facility] 2021-01-03 2021-01-03 Outpatient [facility] [id number] [facility] 2020-11-20 2020-11-20 [facility] [id number] 18:22:00 22:21:00 Madonna Parra [id number] [place] [id number] [place] [address] [id number] 2019-03-02 2019-03-04 Phone nullFlavo MNA [id number] Memoria 16:11:26 04:59:59 Message r Neurosurger 08 l y [facility] 2019-03-02 2019-03-03 Outpatient MHMISCHER MHMISCHER [id number] 11:11:26 23:59:59 08 2019-02-10 2019-02-12 Phone nullFlavo MNA [id number] Memoria 16:16:47 04:59:59 Message r Neurosurger 07 l y [facility] 2019-02-10 2019-02-11 Outpatient MHMISCHER MHMISCHER [id number] 11:16:47 23:59:59 07 2019-01-26 2019-01-28 Phone nullFlavo MNA [id number] Memoria 15:52:03 04:59:59 Message r Neurosurger 06 l y [facility] 2019-01-26 2019-01-27 Outpatient MHMISCHER MHMISCHER [id number] 10:52:03 23:59:59 06 2019-01-01 2019-01-03 Phone nullFlavo MNA [id number] Memoria 18:55:03 04:59:59 Message r Neurosurger 05 l y [facility] 2019-01-01 2019-01-02 Outpatient MHMISCHER MHMISCHER [id number] 13:55:03 23:59:59 05 2018-05-22 2018-05-22 Emergency nullFlavo [facility] [id number] Memoria 10:12:00 18:24:00 adriano Gomez [address] [place] [address] 2018-05-22 2018-05-22 Outpatient Neal [facility] [id number] 04:12:00 12:24:00 Zohaib Ca 2018-02-18 2018-02-18 [facility] [id number] 11:15:00 11:15:00 t [facility] Medicine Medicine Outpati ent Clinics 2018-01-27 2018-01-27 [facility] [id number] 11:30:00 11:30:00 [place] [address] [facility] Out[facility] Clinics 2018-01-03 2018-01-03 [facility] [id number] 15:41:00 15:41:00 t [facility] Outpati ent Clinics 2017-12-23 2017-12-23 [facility] [id number] 15:42:00 15:42:00 [facility] Outpati ent Clinics 2017-12-17 2017-12-17 [facility] [id number] 11:00:00 11:00:00 [facility] Outpati ent [facility] 2017-11-14 2017-11-19 Inpatient [facility] [id number] [facility] 22:40:00 17:28:[address] 2017-11-14 2017-11-19 Outpatient Ruth Quesada [facility] [id number] 17:40:00 12:28:00 [place] [address] Results Test Description Test Time Test Comments Results Result Comments Source POCT-GLUCOSE METER 2019-07-30 13:03:00 Test Item Value Reference Range Interpretation Comme nts POC-GLUCOSE METER (BANNER) 140 mg/dL 70-110 H : TESTED AT [address] (test code = 1538) [facility] X, [address]: Cable Former/Techni rose ID = [id number] for REY VALENTIN POCT-GLUCOSE [id number] 09:15:00 Test Item Value Reference Range Interpretation Comments POC-GLUCOSE METER 142 mg/dL 70-110 H : TESTED A [facility] 67 (BANNER) (test code = [facility] Petit [facility], 1538) [address]: Cable Former/Techni rose ID = [id number] for AARON COTTRELL POCT-GLUCOSE [id number] 20:56:00 Test Item Value Reference Range Interpretation Comments POC-GLUCOSE METER 134 mg/dL 70-110 H : TESTED A [facility] 6720 (BANNER) (test code = [facility] Petit [facility], 1538) [address]: Cable Former/Techni rose ID = [id number] for MG LANZA POCT-GLUCOSE [id number] 16:46:00 Test Item Value Reference Range Interpretation Comments POC-GLUCOSE METER 91 mg/dL 70-110 : TESTED A T [facility] 6720 (BEAKER) (test code = LIZBETH Petit [facility], 1538) [address]: Cable Former/Techni rose ID = [id number] for AARON CABRAL POCT-GLUCOSE [id number] 12:19:00 Test Item Value Reference Range Interpretation Comments POC-GLUCOSE METER 237 mg/dL 70-110 H : TESTED A T [facility] 6720 (BEAKER) (test code = LIZBETH Petit [facility], 1538) 18104: Cable Former/Techni rose ID = [id number] for AARON COTTRELL MR, EXTREMITY, LOWER, WITHOUT CONTRAST, [id number] 09:12:00FINAL REPORT MRI of the right and [...] Garza Verified Date/Time: 07/29/2019 09:12:01 Reading Location: [address] Ortho Consult Reading Room MR, EXTREMITY, LOWER, WITHOUT CONTRAST, [id number] 09:12:00FINAL REPORT MRI of the right and [...] MDReport Verified Date/Time: 07/29/2019 09:12:01 Reading Location: [facility] C013X Ortho Consult Reading Room POCT-GLUCOSE [id number] 08:47:00 Test Item Value Reference Range Interpretation Comments POC-GLUCOSE METER 264 mg/dL 70-110 H : TESTED A T [facility] 6720 ([facility] (test code = [facility], 153) [address]: Cable Former/Techni rose ID = [id number] for AARON COTTRELL ISLET CELL AB [id number] 07:43:00 Test Item Value Reference Range Interpretation Comments ISLET CELL AB Refer to individual AUTOVERIFICATION (test Islet Cell Ab code = 2556) and/or Islet Cell Ab Titer results. POCT-GLUCOSE [id number] 21:27:00 Test Item Value Reference Range Interpretation Comments POC-GLUCOSE METER 130 mg/dL 70-110 H : TESTED A T [facility] 6720 ([employer]) (test code = [facility], 153) 25141: Cable Former/Techni rose ID = [id number] for NADIRA DEL ROSARIO FERNIE BLOOD [id number] 13:00:00 Test Item Value Reference Range Interpretation Comments CULTURE (BEAKER) (test No growth in 5 days code = 1095) BLOOD [id number] 13:00:00 Test Item Value Reference Range Interpretation Comments CULTURE (BEAKER) (test No growth in 5 days code = 1095) POCT-GLUCOSE [id number] 12:57:00 Test Item Value Reference Range Interpretation Comments POC-GLUCOSE METER 138 mg/dL 70-110 H : [facility] (test code = [facility], 1537) [address]47[address]: Cable Former/Techni rose ID = [id number] for [place] LLIS, JUAN ANTONIO POCT-GLUCOSE [id number] 08:43:00 Test Item Value Reference Range Interpretation Comments POC-GLUCOSE METER 226 mg/dL 70-110 H : [facility] ([facility]NER) (test code = [facility], 153) 36226: Cable Former/Techni rose ID = [id number] for [place] LLIS, JUAN ANTONIO POCT-GLUCOSE [id number] 21:11:00 Test Item Value Reference Range Interpretation Comments POC-GLUCOSE METER 254 mg/dL 70-110 H : Notified RN/MD: (BANNER) (test code = TESTED AT [place] 4035020 1537) [facility], [address]: Cable Former/Techni rose ID = [id number] for NADIRA HARRELLROSARIO FERNIE POCT-GLUCOSE [id number] 21:02:00 Test Item Value Reference Range Interpretation Comments POC-GLUCOSE METER 177 mg/dL 70-110 H : TESTED A T [facility] 6720 (BEAKER) (test code = LIZBETH Petit [facility], 1538) [address]: Cable Former/Techni rose ID = [id number] for WI LLIS, JUAN ANTONIO POCT-GLUCOSE [id number] 12:31:00 Test Item Value Reference Range Interpretation Comments POC-GLUCOSE METER 215 mg/dL 70-110 H : TESTED A T [facility] 6720 (VDI LaboratoryAKER) (test code = LIZBETH Petit [facility], 1538) [address]: Cable Former/Techni rose ID = [id number] for [place] LLIS, JUAN ANTONIO WOUND CULTURE + GRAM [id number] 10:10:00 Test Item Value Reference Interpretation Comments [...] gram negative (BEAKER) (test code = rods 392620) GRAM STAIN RESULT 2+ gram positive (BEAKER) (test code = rods 095876) GRAM STAIN RESULT <1+ gram negative (BEAKER) (test code = coccobacilli 759371) GRAM STAIN RESULT 2+ gram positive (BEAKER) (test code = cocci in pairs 300986) POCT-GLUCOSE [id number] 08:52:00 Test Item Value Reference Range Interpretation Comments POC-GLUCOSE METER 209 mg/dL 70-110 H : TESTED A T [facility] 6720 (LivBlends) (test code = [facility], 153) [address]: Cable Former/Techni rose ID = [id number] for [place] LLIS, JUAN ANTONIO POCT-GLUCOSE [id number] 21:26:00 Test Item Value Reference Range Interpretation Comments POC-GLUCOSE METER 255 mg/dL 70-110 H : TESTED A T [facility] 6720 (LivBlends) (test code = [facility], 153) [address]: Cable Former/Techni rose ID = [id number] for CR MICK, TIA POCT-GLUCOSE [id number] 17:34:00 Test Item Value Reference Range Interpretation Comments POC-GLUCOSE METER 227 mg/dL 70-110 H : TESTED A T [facility] 6720 (LivBlends) (test code = [facility], 153) [address]: Cable Former/Techni rose ID = [id number] for CHAVEZ CIARA, LETI POCT-GLUCOSE [id number] 11:28:00 Test Item Value Reference Range Interpretation Comments POC-GLUCOSE METER 282 mg/dL 70-110 H : TESTED A T [facility] 6720 (BANNER) (test code = [facility], 1538) [address]: Cable Former/Techni rose ID = [id number] for CHAVEZ CIARA, LETI POCT-GLUCOSE [id number] 08:19:00 Test Item Value Reference Range Interpretation Comments POC-GLUCOSE METER 329 mg/dL 70-110 H : TESTED A T [facility] 6720 (BANNER) (test code = [facility], 153) [address]: Cable Former/Techni rose ID = [id number] for AARON COTTRELL POCT-GLUCOSE [id number] 21:32:00 Test Item Value Reference Range Interpretation Comments POC-GLUCOSE METER 275 mg/dL 70-110 H : TESTED A T [facility] 6720 (BANNER) (test code = [facility], 1538) [address]: Cable Former/Techni rose ID = [id number] for MG LANZA POCT-GLUCOSE [id number] 17:47:00 Test Item Value Reference Range Interpretation Comments POC-GLUCOSE METER 304 mg/dL 70-110 H : TESTED A T [facility] 6720 (BANNER) (test code = [facility], [facility]8) [address]: Cable Former/Techni rose ID = [id number] for MA RIN, ERIN URINE [id number] 15:21:00 Test Item Value Reference Range Interpretation Comments CULTURE [facility] A >100,000 co l/mL (test code = 1095) Beta-hemo lytic streptococcus g roup B, by serologic al grouping CULTURE ([employer]) PROTEUS A 80-89,000 c ol/mL (test code [...] Tobramycin (test code R = 25) POCT-GLUCOSE [id number] 12:16:00 Test Item Value Reference Range Interpretation Comments POC-GLUCOSE METER 337 mg/dL 70-110 H : TESTED A T [facility] 6720 (BEAKER) (test code = [facility], 1538) [address]: Cable Former/Techni rose ID = [id number] for SAM BLAIR, ERIN BASIC METABOLIC [id number] 10:39:00 Test Item Value Reference Range Interpretation [...] S NOT APPLICABLE FOR DIALYSIS PATIEN TS. Cable Former ID - JANET FPOCT-GLUCOSE [id number] 08:29:00 Test Item Value Reference Range Interpretation Comments POC-GLUCOSE METER 395 mg/dL 70-110 H : TESTED A T [facility] 6720 (BEAKER) (test code = [facility], 1538) [address]: Cable Former/Techni rose ID = [id number] for MA RIN, ERIN CBC W/PLT COUNT & AUTO [id number] 06:40:00 Test Item Value Reference Range Interpretation [...] PERCENT (BEAKER) (test code = 2801) POCT-GLUCOSE [id number] 19:55:00 Test Item Value Reference Range Interpretation Comments POC-GLUCOSE METER 369 mg/dL 70-110 H : TESTED A T [facility] 6720 (BEAKER) (test code = [facility], 1538) [address]: Cable Former/Techni rose ID = [id number] for CR MG BARTON POCT-GLUCOSE [id number] 16:45:00 Test Item Value Reference Range Interpretation Comments POC-GLUCOSE METER 272 mg/dL 70-110 H : TESTED A T [facility] 6720 (BEAKER) (test code = [facility], 1538) [address]: Cable Former/Techni rose ID = [id number] for FRIEDA PALOMINO POCT-GLUCOSE [id number] 11:40:00 Test Item Value Reference Range Interpretation Comments POC-GLUCOSE METER 277 mg/dL 70-110 H : TESTED A T [facility] 6720 (BEAKER) (test code = [facility], 1538) [address]: Cable Former/Techni rose ID = [id number] for FRIDEA PALOMINO BASIC METABOLIC [id number] 10:22:00 Test Item Value Reference Range Interpretation [...] S NOT APPLICABLE FOR DIALYSIS PATIEN TS. Cable Former ID - NTPLIPID [id number] 10:17:00 Test Item Value Reference Range Interpretation [...] Borderline 130-159 High 160-189 Very High >=190 Cable Former ID - NTP POCT-GLUCOSE [id number] 08:28:00 Test Item Value Reference Range Interpretation Comments POC-GLUCOSE METER 388 mg/dL 70-110 H : TESTED A T [facility] 6720 (BEAKER) (test code = LIZBETH Petit [facility], 1538) [address]: Cable Former/Techni rose ID = [id number] for AARON COTTRELL HEMOGLOBIN [id number] 07:54:00 Test Item Value Reference Range Interpretation Comments HEMOGLOBIN A1C (BEAKER) (test code = 10.4 % 4.3-6.1 H 368) CBC W/PLT COUNT & AUTO [id number] 05:56:00 Test Item Value Reference Range Interpretation [...] PERCENT (BEAKER) (test code = 2801) POCT-GLUCOSE [id number] 23:47:00 Test Item Value Reference Range Interpretation Comments POC-GLUCOSE METER 359 mg/dL 70-110 H : Notified RN/: (FELICIANO) (test code = TESTED AT [facility] 9044 3253) [facility], [address]: Cable Former/Techni rose ID = [id number] for MICHELINE DOTY POCT-GLUCOSE [id number] 21:13:00 Test Item Value Reference Range Interpretation Comments POC-GLUCOSE METER 315 mg/dL 70-110 H : TESTED A [facility] 6720 (BEAKER) (test code = [facility], 1538) [address]: Cable Former/Techni rose ID = [id number] for Sm prince, Ana POCT-GLUCOSE [id number] 21:13:00 Test Item Value Reference Range Interpretation Comments POC-GLUCOSE METER 331 mg/dL 70-110 H : TESTED A T [facility] 6720 (BEAKER) (test code = [facility], 1538) [address]: Cable Former/Techni rose ID = [id number] for RO JERRICA MCCLAIN POCT-GLUCOSE [id number] 10:30:00 Test Item Value Reference Range Interpretation Comments POC-GLUCOSE METER 341 mg/dL 70-110 H : TESTED A T [facility] 6720 (BEAKER) (test code = [facility], 153) [address]: Cable Former/Techni rose ID = [id number] for Sm ith, Ana CBC W/PLT COUNT & AUTO [id number] 08:48:00 Test Item Value Reference Range Interpretation [...] (BEAKER) (test code = Present 1371) HEMOGLOBIN [id number] 06:39:00 Test Item Value Reference Range Interpretation Comments HEMOGLOBIN A1C (BEAKER) (test code = 10.5 % 4.3-6.1 H 368) LIPID [id number] 04:57:00 Test Item Value Reference Range Interpretation [...] Very High >=190 Specimen moderately lipemicBASIC METABOLIC [id number] 04:56:00 Test Item Value Reference Range Interpretation [...] NOT APPLICABLE FOR DIALYSIS PATIEN TS. POCT-GLUCOSE [id number] 21:53:00 Test Item Value Reference Range Interpretation Comments POC-GLUCOSE METER > mg/dL 70-110 HH : Notified RN/MD: TESTED (BEAKER) (test code = AT [facility] 6720 [facility] 3848) [place], [address]: Cable Former/Techni rose ID = [id number] for DESIRAE MENDOZA U/S, ABDOMINAL, [id number] 19:54:00Reason for exam:->Evaluation of TUBE MAKER shunt and for possible cyst or pseudocyst [...] CT scan would bemore sensitive. Signed: Óscar Santoyoeport Verified Date/Time: 07/22/2019 19:54:10 Reading Location: [address] Consult Reading Room POCT-GLUCOSE [id number] 19:34:00 Test Item Value Reference Range Interpretation Comments POC-GLUCOSE METER 474 mg/dL 70-110 HH : Notified RN/MD: (BEAKER) (test code = TESTED AT [facility] 6720 1538) [facility], [address]: Cable Former/Techni rose ID = [id number] for AK ROSMERYKiera MARILYNN URINALYSIS W/ REFLEX URINE [id number] 17:48:00 Test Item Value Reference Range Interpretation [...] = 2795) CBC W/PLT COUNT & AUTO [id number] 17:38:00 Test Item Value Reference Range Interpretation [...] 3438) Received comment: User comments: Slide comments:POCT-GLUCOSE [id number] 16:27:00 Test Item Value Reference Range Interpretation Comments POC-GLUCOSE METER 424 mg/dL 70-110 HH : Notified RN/MD: (FELICIANO) (test code = TESTED AT [facility] 8123 0799) [facility], [address]: Cable Former/Techni rose ID = [id number] for GERRY ROSMERYKiera MARILYNN CT, BRAIN, WITHOUT [id number] 15:31:00FINAL REPORT CT, BRAIN, WITHOUT CONTRAST CLINICAL [...] MDReport Verified Date/Time: 07/22/2019 15:31:08 Reading Location: [address] Neuro Reading Room RAD, SHUNT [id number] 15:13:00Reason for exam:->concern for VPS malfunction FINAL [...] Date/Time: 07/22/2019 15:13:54 Reading Location: [facility] Radiology Reading Room POCT-GLUCOSE METER 2019-07-22 11:38:00 Test Item Value Reference Range Interpretation Comments POC-GLUCOSE METER 394 mg/dL 70-110 H : TESTED A T [facility] 6720 (BEAKER) (test code = [place], 1538) [address]: Cable Former/Techni rose ID = [id number] for AK INSONU, MARILYNN HEMOGLOBIN [id number] 09:15:00 Test Item Value Reference Range Interpretation Comments HEMOGLOBIN A1C (BEAKER) (test code = 10.4 % 4.3-6.1 H 368) TSH/FREE T4 IF [id number] 07:54:00 Test Item Value Reference Range Interpretation Comments THYROID STIMULATING HORMONE 1.40 uIU/mL 0.35-4.94 (BEAKER) (test code = 772) POCT-GLUCOSE [id number] 07:48:00 Test Item Value Reference Range Interpretation Comments POC-GLUCOSE METER > mg/dL 70-110 HH : Notified RN/MD: TESTED (BEAKER) (test code = AT [facility] 6709 [facility] 1443) [facility], [facility] 30: Cable Former/Techni rose ID = [id number] for MARILYNN SMITH BASIC METABOLIC [id number] 07:44:00 Test Item Value Reference Range Interpretation [...] NOT APPLICABLE FOR DIALYSIS PATIEN TS. LIPID [id number] 07:34:00 Test Item Value Reference Range Interpretation [...] mg/dL 70-110 H : TESTED A T [facility] 6720 ([employer]) (test code = [place], 1538) [address]: Cable Former/Techni rose ID = [id number] for CHERYLE LINDA RAD, FOOT, 2 VIEWS, [id number] 22:28:00Reason for exam:->osteomyletitis FINAL REPORT TECHNIQUE: Two [...] MDReport Verified Date/Time: 07/21/2019 22:28:25 Reading Location: [facility] C0[facility] Consult Reading Room RAD, FOOT, 2 VIEWS, [id number] 22:28:00Reason for exam:->osteomyletitsFINAL REPORT TECHNIQUE: Two views [...] MDReport Verified Date/Time: 07/21/2019 22:28:25 Reading Location: [facility] C013W Consult Reading Room POCT-GLUCOSE METER 2019-07-21 21:04:00 Test Item Value Reference Range Interpretation Comments POC-GLUCOSE METER 430 mg/dL 70-110 HH : Notified RN/MD: (FELICIANO) (test code = TESTED AT [facility] 67[address] 1538[address] [facility], [address]: Cable Former/Techni rose ID = [id number] for ALBERTO OLIVER ERTAPENEM:[facility]:PT:ISOLATE:ORDQN:[id number] 16:48:00Proteus mirabilisMemorial HermannURINE AND [id number] 16:48:00Negative (05/22/18 10:48 AM)[facility] [id number] 16:48:00Negative *NA*(05/22/18 10:48 AM)[facility] [id number] 16:48:00Negative *NA*(05/22/18 10:48 AM)[facility] [id number] 16:48:00Trace *ABN*(05/22/18 10:48 AM)[facility] [id number] 16:48:000.2[facility] STOOL 2018-05-22 16:48:00Large *ABN*(05/22/18 10:48 AM)[facility] STOOL 2018-05-22 16:48:00Negative (05/22/18 10:48 AM)[facility] STOOL 2018-05-22 16:48:00Negative (05/22/18 10:48 AM)[facility] STOOL 2018-05-22 16:48:00 Test Item Value Reference Range Interpretation Comments UA pH (test code = UA pH) 7.0 1 5.0-8.0 [facility] [id number] 16:48:00 Test Item Value Reference Range Interpretation Comments UA Spec Grav (test code = UA Spec 1.015 1 Grav) [facility] [id number] 16:48:00Yellow *NA*(05/22/18 10:48 AM) [facility] [id number] 16:48:00Clear (05/22/18 10:48 AM) [facility] [id number] 16:48:00None Seen (05/22/18 10:48 AM) [facility] BANK [id number] 11:57:00Negative (05/22/18 5:57 AM) [facility]xjjznbYQGYNLMAMG1810-38-01 11:57:00 Test Item Value Reference Range Interpretation Comments PTT (test code = PTT) 33.4 s 22.9-35.8 [facility]dpevgcOBKPQKXZSJ1443-23-83 11:57:00 Test Item Value Reference Range Interpretation Comments PT (test code = PT) 13.7 s 12.0-14.7 [facility] HealthReazohdYBEAUAGRIB8950-65-95 11:57:00 Test Item Value Reference Range Interpretation Comments INR (test code = INR) 1.05 1 0.85-1.17 [facility] HermannCHEM [id number] 10:50:05839Uchstsaj HermannCHEM PANEL 2018-05-22 10:50:019.4[facility] HermannCHEM WQEBB2968-15-41 10:50:0128[facility] HermannCHEM EMPRR4015-58-94 10:50:0114[facility] HermannCHEM BCYEK5825-82-59 10:50:0189[facility] HermannCHEM TJBNG5064-96-90 10:50:03753Donizjjy HermannCHEM PGPOH4857-56-46 10:50:014.2[facility] HermannCHEM LVMJG4012-73-21 10:50:88650 [facility] HermannCHEM BSLEY1612-39-40 10:50:010.85[facility] HermannCHEM PANEL 2018-05-22 10:50:019.2[facility] NosztbaAFRJABANNT5738-34-47 10:50:01 Test Item Value Reference Range Interpretation Comments ACT (TEG) Rapid (test code = ACT (TEG) 136 s 86-118 Rapid) [facility] RwyormvRZJPYKGQIM7239-10-18 10:50:01 Test Item Value Reference Range Interpretation Comments Split Point Rapid (test code = Split 0.6 min Point Rapid) [facility] JclplsuSGSXHJDEHJ0828-40-31 10:50:01 Test Item Value Reference Range Interpretation Comments R-time Rapid (test code = R-time 0.9 min 0.4-0.7 Rapid) [facility]kinQwtoastSFAVBAZLGI8978-50-21 10:50:01 Test Item Value Reference Range Interpretation Comments K-time Rapid (test code = K-time 1.4 min 0.6-2.3 Rapid) [facility]kinCgngbpoLUOFLJUGOF2453-42-35 10:50:01 Test Item Value Reference Range Interpretation Comments Angle Rapid (test code = Angle 71 degrees 64-80 Rapid) [facility] LufkinAgdhimtRBJUGDGNEV7984-40-64 10:50:0112.7[facility] HermannHEMATOLOGY 2018-05-22 10:50:01 Test Item Value Reference Range Interpretation Comments Max Amplitude Rapid (test code = Max 72 mm 52-71 Amplitude Rapid) [facility] LufkinAfqmrczZBGIJLIKTM8195-07-09 10:50:010.1[facility] HermannHEMATOLOGY 2018-05-22 10:50:39073Fmdigkjq HvnphrmMYRCHULPLO1728-52-77 10:50:017.8[facility]orial XfkkrluPTVPUASAYP0954-00-04 10:50:01 Test Item Value Reference Range Interpretation Comments MCH (test code = MCH) 27.4 pg 27.0-31.0 [facility] LpkgadyQRANQPROGK5731-91-49 10:50:0180.7[facility] HermannHEMATOLOGY 2018-05-22 10:50:0134.0[facility] RocdpzdEUSWLMHFRB9478-07-40 10:50:0118.9[facility]orial PwmfajxFOGFIBJYXV7575-72-45 10:50:0143.3[facility]orial BtbzmhwUQWHKSACJH9206-18-47 10:50:019.3[facility]orial LscejeeUJWENYKVIF0588-71-61 10:50:0114.7[facility] [place] XKUGGFYVVO9298-08-92 10:50:015.36[facility] OhcjnjaVBMTALTKJW7962-14-27 10:50:01 0.2[facility] WccditzNLAMZEHYLW4657-30-09 10:50:010.1[facility] HermannHEMATOLOGY 2018-05-22 10:50:011.8[facility] AlcfcolRSGITWRDWS6374-48-97 10:50:010.9[facility] DkbaxwnHSIFSDVIAS2141-23-42 10:50:016.3[facility] AyrucnlQSFCWBSIHE5598-75-74 10:50:012.0[facility] LoehvyyDKFFNZQVHT8338-21-85 10:50:0167.4[facility] Jason SIRKQTXSNM5147-57-30 10:50:0119.9[facility]orial OauigvjZGULWCKGRM8964-75-34 10:50:01 1.0[facility]orial FdjgetlGNECIXTJCO1822-85-45 10:50:019.7[facility] HermannCHEM PANEL 2017-11-19 05:42:00 Test Item Value Reference Range Interpretation Comments B/C Ratio (test code = B/C Ratio) 17 1 6-25 [facility] HermannCHEM NMXQO3305-27-90 05:42:004.3[facility] HermannCHEM PANEL 2017-11-19 05:42:00 Test Item Value Reference Range Interpretation Comments A/G Ratio (test code = A/G Ratio) 0.7 1 0.7-1.6 [facility] HermannCHEM EMOXB3251-50-91 05:42:0014.4[facility] HermannCHEM PANEL 2017-11-19 05:42:13503Qsuminnf HermannCHEM LHFRW4875-27-50 05:42:0076Mem[facility] HermannCHEM YLDSZ2526-53-77 05:42:0035[facility] HermannCHEM CKBMY9766-01-08 05:42:002.8[facility] HermannCHEM LQLCI8133-69-76 05:42:007.1[facility] HermannCHEM DKGWG0642-42-16 05:42:008.7[facility] HermannCHEM EMPDC1061-17-42 05:42:0018 [facility] HermannCHEM EQOXX8748-96-32 05:42:000.3[facility] HermannCHEM PANEL 2017-11-19 05:42:004.4[facility] HermannCHEM AWRBK1932-90-77 05:42:81256Bmrjdlut HermannCHEM NZEDL5523-90-51 05:42:0023[facility] HermannCHEM ZBCQD8861-83-30 05:42:91433Qbgdqfje HermannCHEM QBTQC0070-36-51 05:42:001.01[facility] HermannCHEM SFTNN7596-44-17 05:42:0017[facility] HermannCHEM BPCLB6447-65-32 05:42:18012 Memorial HrbkwaiRGWBYTXMYR4562-17-41 05:42:000.6[facility] HermannHEMATOLOGY 2017-11-19 05:42:004.8[facility] OrebggxRAZEGKOISP8180-55-36 05:42:000.7[facility]orial JdijntlONRBJFTSXA0974-06-93 05:42:001.9[facility]orial OtdyfoyXQSCRDQMTN1632-53-47 05:42:009.4[facility]orial SvynfmoLCEYMRFVDC5024-46-91 05:42:000.2[facility] [place] OFRGZKIART6554-82-24 05:42:002.9[facility] AwvvogrIHHXOHNSGI5207-80-36 05:42:00 62.2[facility]orial OucisthIATWVESUYO2013-70-77 05:42:0024.9[facility] HermannHEMATOLOGY 2017-11-19 05:42:00 Test Item Value Reference Range Interpretation Comments MCH (test code = MCH) 27.5 pg 27.0-31.0 Memorial QdnxoohRMTISQTKRD0868-93-96 05:42:0085.3[facility] HermannHEMATOLOGY 2017-11-19 05:42:0043.9[facility]orial FmbjkdzYZGZEELARG6272-34-17 05:42:0014.2[facility]orial EuqjfpoIHRAKNZQNV5813-63-75 05:42:007.7[facility]orial PgmjirvOYFCKNGZNO3812-57-12 05:42:005.15Memorial HxbducwJMDQODPECN8298-95-22 05:42:008.4[facility] [place] FXQZMODQUX8336-67-09 05:42:0032.3Memorial IybdfirZSDJQUEQOJ1308-60-68 05:42:00 17.3Memorial KnzhbneOZTZROLPLK7187-25-65 05:42:20337Firexsap HermannCHEM PANEL 2017-11-18 09:36:004.4[facility] HermannCHEM TDRFL3593-63-69 09:36:00 Test Item Value Reference Range Interpretation Comments A/G Ratio (test code = A/G Ratio) 0.6 1 0.7-1.6 [facility] HermannCHEM LQLED1735-69-96 09:36:00 Test Item Value Reference Range Interpretation Comments B/C Ratio (test code = B/C Ratio) 17 1 6-25 [facility] HermannCHEM FOYTD0280-59-30 09:36:0011.3[facility] HermannCHEM PANEL 2017-11-18 09:36:68021Loofvuyr HermannCHEM KPTDA5589-00-34 09:36:000.84[facility] HermannCHEM OHEZT5349-55-93 09:36:98455Reoyclmd HermannCHEM EDHKF3468-04-68 09:36:0099[facility] HermannCHEM UVZMW2017-90-16 09:36:0014Mem[facility] HermannCHEM TCZRW7068-71-97 09:36:0079[facility] HermannCHEM BXRPY4062-41-56 09:36:000.3 [facility] HermannCHEM IEXCV9423-41-64 09:36:0014Mem[facility] HermannCHEM PANEL 2017-11-18 09:36:0043Mem[facility] HermannCHEM YBNHL3893-28-25 09:36:007.1[facility] HermannCHEM DUEPO2664-51-38 09:36:002.7[facility] HermannCHEM RYKCX9289-34-56 09:36:009.2[facility] HermannCHEM AHQPO1861-41-73 09:36:0021Mem[facility] HermannCHEM ARBES2423-99-95 09:36:004.3[facility] HermannCHEM ICXFD7592-77-98 09:36:60964 Memorial UrlzurvHAKHTAIRDM4645-70-06 09:36:0032.5[facility] HermannHEMATOLOGY 2017-11-18 09:36:0017.5[facility]orial TdaqugoNMHMJYOROB2240-90-03 09:36:36306Fjapriij XkyjrgeNDVDGAFUJA1941-28-87 09:36:008.5[facility] VuslzlnNQRCAQRBNT9456-86-97 09:36:006.6Memorial ZmzduauVSEVMXQSLG6445-87-57 09:36:005.17[facility] [place] IJZFMBGCWG3933-03-13 09:36:0086.1Memorial CpwsvlfBJGGINRAKG4848-60-03 09:36:00 44.5Memorial UwoaeyhTCBCJVOBEI8823-94-10 09:36:00 Test Item Value Reference Range Interpretation Comments MCH (test code = MCH) 28.0 pg 27.0-31.0 Memorial NbajzwfHYCUGRKROQ2105-95-38 09:36:0014.5[facility] HermannHEMATOLOGY 2017-11-18 09:36:001.7[facility] IyhgfyyQIVPWUKWFJ4928-91-89 09:36:000.7[facility]orial ZlbnlasRTZJXEADSJ6036-35-77 09:36:000.2[facility] HieyffvHRQIXUERSX4173-25-32 09:36:0026.1[facility] DapoombDJLNFJGQUZ1086-15-90 09:36:0059.3[facility] Jason VJPTTFWGVL8653-04-99 09:36:000.8[facility] ZlqagmgLXOTONLAMD4595-98-18 09:36:00 10.5Memorial LngolrgJKGUKKSGJV4356-82-35 09:36:003.3[facility] HermannHEMATOLOGY 2017-11-18 09:36:003.9[facility] LyoilqwABFYGNCFQD8518-21-36 21:02:009.1[facility] HermannCHEM YTKLD3765-28-57 07:07:0074[facility] HermannCHEM YVQUS0708-11-13 07:07:0012[facility] HermannCHEM NVJVL9745-12-70 07:07:000.75[facility] HermannCHEM IEHZL3670-65-74 07:07:26897Lesvohhf HermannCHEM KEBUJ2535-61-74 07:07:002.9 [facility]CHE[facility] VKSSC2857-23-65 07:07:004.4[facility]annCHEM PANEL 2017-11-17 07:07:00 Test Item Value Reference Range Interpretation Comments A/G Ratio (test code = A/G Ratio) 0.7 1 0.7-1.6 [facility]CHE[facility] HKCLX9769-61-46 07:07:000.4[facility]annCHEM PANEL 2017-11-17 07:07:0071[facility]annCHEM OMIIW9393-14-52 07:07:0015[facility]annCHEM VPDZE6326-63-33 07:07:0028[facility]annCHEM XSXLK4461-32-78 07:07:004.4[facility]annCHEM LMPTB7238-66-25 07:07:84404Dsqzkprs HermannCHEM ZJYFG2853-70-98 07:07:0025[facility]annCHEM ALIWP6435-38-22 07:07:34172 [facility]CHE[facility] PVCAP8462-47-66 07:07:00 Test Item Value Reference Range Interpretation Comments B/C Ratio (test code = B/C Ratio) 16 1 6-25 [facility]CHE[facility] GUPXA0095-11-52 07:07:008.7[facility]annCHEM PANEL 2017-11-17 07:07:0012.4[facility]annCHEM PXACP6282-96-35 07:07:007.3[facility] OkfjpiwNLBGTJDHTY2893-16-53 07:07:69790Igewunrb SehhuqqEUBIKFWEBR7740-01-91 07:07:008.7[facility] NdtfyvwGUWVKPHUVH9477-22-17 07:07:006.9[facility] Jason BGUVTFRJEW7603-41-49 07:07:005.30[facility] VvhivhvMPHLAHBQQO4772-05-10 07:07:00 32.8[facility] OmludnmPLMWSFBVXE4481-62-21 07:07:00 Test Item Value Reference Range Interpretation Comments MCH (test code = MCH) 27.9 pg 27.0-31.0 [facility] QisciyqPAFTEGDAZH7867-00-39 07:07:0014.8[facility]annHEMATOLOGY 2017-11-17 07:07:0085.0[facility] HafiwnnICVUSNHKDK1233-44-93 07:07:0045.1[facility] RxbxvjtRDHMISAVAJ9078-71-66 07:07:0017.5[facility] MxubiekDFJPCYNWMR4696-45-17 07:07:000.2[facility] VoytvxaDEMOWPSPFR2492-81-63 07:07:002.0[facility] [place] NWVNMAHEWJ9988-29-10 07:07:000.7[facility] NokbxuvXNCHZIBXSW1815-25-07 07:07:002.4 [facility] MdtfrwxEMBTOXKLMI2045-79-12 07:07:000.6[facility]annHEMATOLOGY 2017-11-17 07:07:004.0[facility] JtrieqfZCFFHKCAFU7314-06-19 07:07:0010.4[facility] KdkjlflLMHATSOYTI8222-93-45 07:07:00Normal (11/17/17 2:07 AM)[facility] SGHKSMKGBP2031-71-68 07:07:0058.1[facility] SuikfisCXNPGBLNGI9012-68-73 07:07:00 Normal (11/17/17 2:07 AM)[facility] XtxomxaZJRWVGHKGC8014-77-16 07:07:0028.5[facility] WczkzxgAHLLLUOORY4379-04-95 16:07:000.1[facility] KidqysvYNJSIYMWSB9973-77-93 16:07:00Moderate *ABN*(11/16/17 11:07 AM)[facility] GtxndokCBWXOWSMNJ7638-76-90 06:43:0022.3[facility]annCHEM AGWUT9232-95-88 11:45:002.3[facility]annCHEM HLOEI6718-21-05 11:45:003.5[facility] ThmmojgNQYMKSEETO0818-59-29 11:45:00 Test Item Value Reference Range Interpretation Comments PT (test code = PT) 14.0 s 12.0-14.7 [facility] YphvfsnCWNDKFJVXI4635-20-15 11:45:00 Test Item Value Reference Range Interpretation Comments PTT (test code = PTT) 37.6 s 22.9-35.8 [facility] MjkpcljSMKOXJQAZU1431-04-60 11:45:00 Test Item Value Reference Range Interpretation Comments INR (test code = INR) 1.08 1 0.85-1.17 [facility] DtpegvzDPVBYXMEID1292-60-17 11:45:0013.1[facility] HermannIMMUNOLOGY 2017-11-15 11:45:0025.2[facility]annCHEM PMFGD1002-99-62 03:06:000.9[facility] RtgplmhYAITXDXEFN1204-10-40 03:06:005[facility] KhdhvrmNLBRHZXODP4970-14-57 03:06:0015.8[facility] [id number] 00:44:00 Test Item Value Reference Range Interpretation Comments PT (test code = PT) 13.0 s 12.0-14.7 [facility] [id number] 00:44:00 Test Item Value Reference Range Interpretation Comments INR (test code = INR) 0.98 1 0.85-1.17 [facility] [id number] 00:44:00 Test Item Value Reference Range Interpretation Comments PTT (test code = PTT) 33.2 s 22.9-35.8 [facility] [id number] 23:51:00Negative (11/14/17 6:51 PM) [facility] [id number] 23:35:000.2[facility] [id number] 23:35:00Negative (11/14/17 6:35 PM)[facility] STOOL [...] Spec 1.020 1 Grav) [facility] [id number] 23:35:00 Test Item Value Reference Range Interpretation Comments UA pH (test code = UA pH) 6.0 1 5.0-8.0 [facility] [id number] 23:35:00Yellow *NA*(11/14/17 6:35 PM) [facility] [id number] 23:35:00Trace *ABN*(11/14/17 6:35 PM) [facility] [id number] 23:35:00Slight Cloudy (11/14/17 6:35 PM) [facility] [id number] 23:35:000-2 (11/14/17 6:35 PM)[facility] [id number] 23:20:000.1[facility] [id number] 23:20:00Normal (11/14/17 6:20 PM)[facility] [id number] 16:22:00 Test Item Value Reference Range Interpretation Comments CULTURE (BEAKER) (test No growth in 5 days code = 1095) BLOOD [id number] 16:22:00 Test Item Value Reference Range Interpretation [...] Normal 762) CBC W/PLT COUNT & AUTO [id number] 22:28:00 Test Item Value Reference Range Interpretation [...] 0.00-0.20 (test code = 417) 0.000.520.000.000.000.00BASI METABOLIC [id number] 11:11:00 Test Item Value Reference Range Interpretation [...] NOT APPLICABLE FOR DIALYSIS PATIEN TS. URINE [id number] 09:56:00 Test Item Value Reference Range Interpretation Comments CULTURE (BEAKER) (test <10,000 col/mL skin code = 1095) marilee COMPREHENSIVE METABOLIC [id number] 08:49:00 Test Item Value Reference Range Interpretation [...] PATIEN TS. CBC W/PLT COUNT & AUTO [id number] 08:46:00 Test Item Value Reference Range Interpretation [...] 0.00-0.20 (test code = 417) 0.00URINALYSIS W/ [id number] 20:36:00 Test Item Value Reference Range Interpretation [...] 520) 182 /HPF SOURCE(BEAKER) (test code = 4224) BASIC METABOLIC [id number] 17:00:00 Test Item Value Reference Range Interpretation [...] Specimen slightly ictericCBC W/PLT COUNT & AUTO [id number] 12:18:00 Test Item Value Reference Range Interpretation [...]
--- NOTE | 2021-03-06 22:56 | ER ---
Nurse's Notes [facility] Name: Roland Feldman Jr Age: 35 yrs Sex: Male : 1985 Arrival Date: 03/06/2021 Time: 15:27 Bed 30 Private MD: Diagnosis: Constipation;Abdominal pain, Generalized Presentation: 03/06 16:04 Chief complaint: Pt was brought from the wound care clinic because he was having pain kg and unable to do wound treatment. Coronavirus screen: Client denies travel out of the [place] in the last 14 days. Client indicates they have traveled out of the [place] in the last 14 days. At this time, unable to obtain information related to travel outside the [place] At this time, the client does not indicate any symptoms associated with coronavirus-19. Ebola Screen: Patient negative for fever greater than or equal to 101.5 degrees Fahrenheit, and additional compatible Ebola Virus Disease symptoms Patient denies exposure to infectious person. Patient denies travel to an Ebola-affected area in the 21 days before illness onset. Initial Sepsis Screen: Does the patient meet any 2 criteria? No. Patient's initial sepsis screen is negative. Does the patient have a suspected source of infection? No. Patient's initial sepsis screen is negative. Risk Assessment: Do you want to hurt yourself or someone else? Patient reports no desire to harm self or others. Onset of symptoms was March 06, 2021. 16:04 Method Of Arrival: Stretcher kg 16:04 Acuity: YUKI 4 kg Historical: - Allergies: 15:41 Zofran; kg 15:41 Vancomycin; kg 15:41 TRIMETHOPRIM; kg 15:41 Toradol; kg 15:41 PENICILLINS; kg 15:41 Morphine; kg 15:41 Levofloxacin; kg 15:41 Doxycycline; kg 15:41 Demerol; kg 15:41 CLAVULANIC ACID; kg 15:41 Ciprofloxacin; kg 15:41 Bactrim; kg 15:41 Amoxicillin; kg - PMHx: 15:41 spina bifida; Hypertension; Hydrocephalus; cluster headaches; GERD; decubitus ulcers on kg feet; Cerebral Palsy; Asthma; Screenin:40 Abuse screen: Denies threats or abuse. Denies injuries from another. Nutritional kg screening: No deficits noted. Nutritional screening: No deficits noted. Tuberculosis screening: No symptoms or risk factors identified. Fall Risk None identified. 15:40 Fall Risk. kg Assessment: 23:58 Reassessment: Patient and/or family updated on plan of care and expected duration. Pain ea level reassessed. Patient is alert, oriented x 3, equal unlabored respirations, skin warm/dry/pink. Pt awaiting on EMS for transport back home. 03/07 01:26 Reassessment: Patient is alert, oriented x 3, equal unlabored respirations, skin ea warm/dry/pink. EMS at facility for transfer report given to EMS. Pt left ED via stretcher per EMS. Pt tolerating well. Vital Signs: 03/06 17:30 BP 140 / 94; Pulse 89; Resp 20; Temp 98.7; Pulse Ox 96% ; Pain 10/10; kg ED Course: 15:27 Patient arrived in ED. ds1 15:40 Patient has correct armband on for positive identification. kg 15:40 No provider procedures requiring assistance completed. kg 16:07 Triage completed. kg 19:18 Saman Fernandez, RN is Primary Nurse. jb4 19:20 Johan Brown MD is Attending Physician. tw4 19:48 May Dupont, NAIF is Primary Nurse. bs2 21:15 CT Abd/Pelvis - IV Contrast Only Sent. bs2 22:13 CT Abd/Pelvis - IV Contrast Only In Process Unspecified. [facility] 03/07 01:25 IV discontinued, intact, bleeding controlled, No redness/swelling at site. Pressure ea dressing applied. Administered Medications: 03/06 20:00 Drug: fentaNYL (PF) 50 mcg Route: IVP; Site: right forearm; bs2 21:00 Follow up: Response: No adverse reaction; Pain is unchanged, physician notified bs2 Outcome: 22:56 Discharge ordered by . tw4 03/07 01:25 Discharged to home Pt left via stretcher per EMS. ea Condition: stable Discharge instructions given to patient, Instructed on discharge instructions, follow up and referral plans. medication usage, Demonstrated understanding of instructions, follow-up care, medications, Prescriptions given X 1. 01:27 Patient left the ED. ea Signatures: Dispatcher [facility] Jaleesa Lal ds1 Saman Fernandez RN RN jb4 Елена Funez RN RN ea Wadley, Terrence, MD MD tw4 Lizabeth Galvan, RN RN kg May Dupont, RN RN bs2
--- NOTE | 2021-03-06 22:56 | EDPHYS ---
Physician Documentation [facility] Name: Roland Feldman Jr Age: 35 yrs Sex: Male : 1985 Arrival Date: 03/06/2021 Time: 15:27 Bed 30 Private MD: ED Physician Johan Brown HPI: 03/06 23:37 This 35 yrs old Black Male presents to ER via Stretcher with complaints of pain. tw4 23:37 The patient presents with abdominal pain in the periumbilical area. Onset: The tw4 symptoms/episode began/occurred today. The symptoms do not radiate. Associated signs and symptoms: none. The symptoms are described as sharp. Modifying factors: The symptoms are alleviated by nothing, the symptoms are aggravated by movement. Severity of pain: At its worst the pain was moderate in the emergency department the pain is unchanged. Historical: - Allergies: 15:41 Zofran; kg 15:41 Vancomycin; kg 15:41 TRIMETHOPRIM; kg 15:41 Toradol; kg 15:41 PENICILLINS; kg 15:41 Morphine; kg 15:41 Levofloxacin; kg 15:41 Doxycycline; kg 15:41 Demerol; kg 15:41 CLAVULANIC ACID; kg 15:41 Ciprofloxacin; kg 15:41 Bactrim; kg 15:41 Amoxicillin; kg - PMHx: 15:41 spina bifida; Hypertension; Hydrocephalus; cluster headaches; GERD; decubitus ulcers on kg feet; Cerebral Palsy; Asthma; ROS: 23:37 Constitutional: Negative for fever, chills, and weight loss, Eyes: Negative for injury, tw4 pain, redness, and discharge, Cardiovascular: Negative for chest pain, palpitations, and edema, Respiratory: Negative for shortness of breath, cough, wheezing, and pleuritic chest pain, Back: Negative for injury and pain, MS/Extremity: Negative for injury and deformity, Skin: Negative for injury, rash, and discoloration, Neuro: Negative for headache, weakness, numbness, tingling, and seizure. 23:37 Abdomen/GI: Positive for abdominal pain, Negative for nausea and vomiting, nausea, vomiting, and diarrhea, nausea, vomiting, abdominal cramps, abdominal distension, anorexia, dysphagia, hematemesis, black/tarry stool, rectal pain, rectal bleeding. Exam: 23:37 Constitutional: This is a well developed, well nourished patient who is awake, alert, tw4 and in no acute distress. Head/Face: Normocephalic, atraumatic. Chest/axilla: Normal chest wall appearance and motion. Nontender with no deformity. No lesions are appreciated. Cardiovascular: Regular rate and rhythm with a normal S1 and S2. No gallops, murmurs, or rubs. Normal PMI, no JVD. No pulse deficits. Respiratory: Lungs have equal breath sounds bilaterally, clear to auscultation and percussion. No rales, rhonchi or wheezes noted. No increased work of breathing, no retractions or nasal flaring. Back: No spinal tenderness. No costovertebral tenderness. Full range of motion. Skin: Warm, dry with normal turgor. Normal color with no rashes, no lesions, and no evidence of cellulitis. MS/ Extremity: Pulses equal, no cyanosis. Neurovascular intact. Full, normal range of motion. Neuro: Awake and alert, GCS 15, oriented to person, place, time, and situation. Cranial nerves II-XII grossly intact. Motor strength 5/5 in all extremities. Sensory grossly intact. Cerebellar exam normal. Normal gait. 23:37 Abdomen/GI: Inspection: abdomen appears normal, Bowel sounds: normal, Palpation: moderate abdominal tenderness, in the suprapubic area. Vital Signs: 17:30 BP 140 / 94; Pulse 89; Resp 20; Temp 98.7; Pulse Ox 96% ; Pain 10/10; kg MDM: 19:20 Patient medically screened. tw4 23:37 Differential diagnosis: acute coronary syndrome, appendicitis. Data reviewed: vital tw4 signs, nurses notes. Data interpreted: Pulse oximetry: Interpretation: normal. Counseling: I had a detailed discussion with the patient and/or guardian regarding: the historical points, exam findings, and any diagnostic results supporting the discharge/admit diagnosis. Special discussion: I discussed with the patient/guardian in detail that at this point there is no indication for admission to the hospital. It is understood, however, that if the symptoms persist or worsen the patient needs to return immediately for re-evaluation. 23:41 Data reviewed: lab test result(s), cardiac enzymes, CBC, electrolytes, hepatic panel, tw4 radiologic studies, CT scan. 03/06 19:46 Order name: Basic Metabolic Panel; Complete Time: 21:42 [facility] 03/06 21:42 Interpretation: Normal except: CL 110. 03/06 19:46 Order name: CBC with Diff; Complete Time: 21:42 [facility] 03/06 21:43 Interpretation: MCV 90.3; MCH 29.8; RDW 15.8. 03/06 19:46 Order name: Hepatic Function; Complete Time: 21:42 [facility] 03/06 21:43 Interpretation: Normal except: ALT 144; ALK 159; A/G 0.7; GLOB 4.7; ALB 3.1. 03/06 19:46 Order name: Lipase; Complete Time: 21:42 [facility] 03/06 21:43 Interpretation: Normal except: LIP 60. 03/06 19:46 Order name: CT Abd/Pelvis - IV Contrast Only 03/06 19:50 Order name: Urine Microscopic Only; Complete Time: 21:42 [facility] 03/06 21:43 Interpretation: Normal except: UBACT LOADED; URBC 5-10; UWBC TNTC. 03/06 19:46 Order name: IV Saline Lock; Complete Time: 19:55 03/06 19:46 Order name: Labs collected and sent; Complete Time: 19:55 [facility] 03/06 19:50 Order name: Urine Dipstick-Ancillary (obtain specimen); Complete Time: 21:15 [facility] 03/06 20:16 Order name: Labs - recollect needed: all labs; Complete Time: 21:15 mw2 Administered Medications: 20:00 Drug: fentaNYL (PF) 50 mcg Route: IVP; Site: right forearm; bs2 21:00 Follow up: Response: No adverse reaction; Pain is unchanged, physician notified bs2 Disposition Summary: 03/06/21 22:56 Discharge Ordered Location: Home tw4 Problem: new tw4 Symptoms: have improved tw4 Condition: Stable tw4 Diagnosis - Constipation tw4 - Abdominal pain, Generalized tw4 Followup: tw4 - With: Private Physician - When: Upon discharge from the Emergency Department - Reason: Recheck today's complaints, Continuance of care, Re-evaluation by your physician Discharge Instructions: - Discharge Summary Sheet tw4 - Abdominal Pain, Adult tw4 - Colic tw4 - Constipation, Adult tw4 Forms: - Medication Reconciliation Form tw4 - Thank You Letter tw4 - Antibiotic Education tw4 - Prescription Opioid Use tw4 Prescriptions: - Miralax 17 gram Oral powder in packet - take 1 packet by ORAL route once daily; 1 packet; Refills: 0, Product Selection tw4 Permitted Signatures: Dispatcher [employer] Johan Overton MD MD tw4 Socorro Virk mw2 Lizabeth Galvan RN RN kg May Dupont RN RN bs2
[2021-03-07 01:33] VITALS: BP 140/94; TEMP 98.7; O2SAT 96
--- NOTE | 2021-03-07 11:38 | RAD REPORT ---
EXAM DESCRIPTION: CT - Abdomen Pelvis W Contrast - 03/07/2021 6:37 am CLINICAL HISTORY: Mid to lower abdominal pain since last night. COMPARISON: None. TECHNIQUE: Axial CT imaging of the abdomen and pelvis performed with intravenous contrast. Reformatt ed coronal and sagittal images reviewed. A dose reduction technique was utilized with automated exposure control according to patient size. FINDINGS: Clear lung bases. Heart is normal in size. The liver is normal in size and contour. Mild decreased attenuation due to fatty infiltration. Gallbl adder has been resected. Normal spleen, pancreas, adrenal glands. Unremarkable right and left kidney. Normal aorta and inferior vena cava caliber. No retroperitoneal lymphadenopathy. Mesenteric vessels appear normal. Unremarkable stomach. The small bowel loops are normal caliber. Appendix is normal in the right lower quadrant. Large volume of stool throughout the colon without obstruction. No ascites or free air. No mesenteric adenopathy. There are 3 ventriculoperitoneal catheters within the abdomen. One terminates in the right abdomen just right of midline. The second terminates in the anterior pelvis. The third terminates in the right subhepatic space. There is a suprapubic bladder catheter. Bladder is decompressed. Normal prostate. No pelvic free flui d. 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 Hyperlordosis of the lumb osacral junction. Intact bony pelvis. There is bilateral acetabular broadening with deformity of the right and left humeral head due to chronic subluxations. Possible wound along the posterior right scr otal sac. Injection granulomas in the right and left buttock. There are mildly enlarged bilateral jeison in lymph nodes up to 1.5 cm in short axis on the right side and 1.4 cm on the left side. There are mi ldly enlarged bilateral iliac chain lymph nodes. Largest is on the left side, 1.1 cm. IMPRESSION: 1. Constipation. No obstruction. 2. Mild hepatic steatosis. 3. Suprapubic catheter is within a decompressed bladder. 4. Mild bilateral iliac and groin lymphadenopathy. 5. Lumbosacral spinal dysraphism. Chronic bilateral hip deformities due to mild subluxations 6. Possible right posterior scrotal wound. Correlate with physical exam. Electronically signed by: Maris Howard DO 03/06/2021 10:32 PM CDT Due to temporary technical issues with the PACS/Fluency reporting system, reports are being signed by the in house radiologists without review as a courtesy to insure prompt reporting. The interpreting radiologist is fully responsible for the content of the report.
[2021-03-09 14:24] LABS: Urine Blood 2+ (Negative); Urine Glucose Negative (Negative); Urine Protein 1+ (Negative); Urine pH 6.5 (5.0-7.0)
== END 2021-03-07 01:27 | disposition home or self-care (01) ==
LOC: ER 15:25 → SUPCPDRO 15:25 → ER 03-07 01:27
DX: K59.00 Constipation, unspecified (principal); I10 Essential (primary) hypertension; Z88.0 Allergy status to penicillin; Z88.3 Allergy status to other anti-infective agents; Z88.5 Allergy status to narcotic agent; Z88.8 Allergy status to other drugs, medicaments and biological substances
CPT/HCPCS: 85025; 80048; 36415; 80076; 81015; 83690; 74177; Q9967; J3010 ×2; J0696; 81003; 96374; 99283

== ENCOUNTER 2021-05-16 18:29 | Inpatient (IN) | payer OTHER ==
[2021-05-16 20:10] LABS: Absolute Lymphocytes (CBC) 2.1 K/uL (0.7-4.9); Basophils % 0.4 % (0-1.3); Hematocrit 50.1 % (39.6-49.0); Lymphocytes % 18.6 % (15.3-44.8); MPV 8.2 fL (7.6-11.3); RBC Red Blood Cell Count 5.69 M/uL (4.33-5.43)
[2021-05-16 20:25] LABS: ALT/SGPT 41 U/L (12-78); AST/SGOT 13 U/L (15-37); Albumin 3.3 g/dL (3.4-5.0); Alkaline Phosphatase 108 U/L (45-117); BUN Blood Urea Nitrogen 11 mg/dL (7-18); Bicarbonate 28 mmol/L (21-32); Bilirubin Direct 0.2 mg/dL (0-0.2); Bilirubin Total 0.5 mg/dL (0.2-1.0); Glucose Level 82 mg/dL (74-106); Lipase 53 U/L (73-393); Potassium 3.7 mmol/L (3.5-5.1); Protein, Total 8.5 g/dL (6.4-8.2); Sodium Level 141 mmol/L (136-145)
--- NOTE | 2021-05-16 21:06 | RAD REPORT ---
EXAM DESCRIPTION: CTAbdomen Pelvis W Contrast - 05/16/2021 8:56 pm CLINICAL HISTORY: Abdominal pain. Flank pain;Abd pain COMPARISON: Abdomen Pelvis W Contrast dated 03/06/2021; Abdomen Pelvis W Contrast dated 08/06/2018 ; Abdomen Pelvis W Contrast dated 03/05/2018; Abdomen Pelvis W Contrast dated 04/18/2016 TECHNIQUE: Biphasic CT imaging of the abdomen and pelvis was performed with 100 ml non-ionic IV cont rast. All CT scans are performed using dose optimization technique as appropriate and may include automated exposure control or mA/KV adjustment according to patient size. FINDINGS: The lung bases are clear. The liver is prominent in size with diffuse fatty liver infiltration. The spleen, pancreas, adrenal g lands and left kidney are within normal limits. Mild right hydronephrosis and hydroureter is present. The bladder appears decompressed by means of a suprapubic catheter. No bowel obstruction, free air, free fluid or abscess. Shunt tubing is present in the abdomen. The ap pendix is normal. Mildly prominent bilateral inguinal lymph nodes are seen, unchanged. Mildly promin ent retroperitoneal lymph nodes are also stable. No fracture. IMPRESSION: Mild right hydronephrosis and hydroureter without obstructing stone. Prominent hepatomegaly with fatty liver infiltration.
[2021-05-16] MEDS ORDERED: HYDROMORPHONE HCL 2 MG/ML inj ONE ×3 (21:16→23:51)
[2021-05-16 21:17] LABS: Urine Blood 2+ (Negative); Urine Glucose Negative (Negative); Urine Protein 2+ (Negative); Urine Specific Gravity 1.015 (1.005-1.030)
--- NOTE | 2021-05-16 21:32 | ER ---
Nurse's Notes [facility] Name: Roland Feldman Jr Age: 35 yrs Sex: Male : 1985 Arrival Date: 05/16/2021 Time: 18:43 Bed 7 Private MD: Diagnosis: Pyelonephritis;Nausea with vomiting, unspecified;Dehydration Presentation: 05/16 18:47 Chief complaint: Patient states: pt c/o r sided flank pain that started last night and as6 nausea, pt also states he has open wounds to his bottom and scrotal area. Coronavirus screen: Vaccine status: Patient reports being unvaccinated. At this time, the client does not indicate any symptoms associated with coronavirus-19. Ebola Screen: Patient negative for fever greater than or equal to 101.5 degrees Fahrenheit, and additional compatible Ebola Virus Disease symptoms Patient denies exposure to infectious person. Patient denies travel to an Ebola-affected area in the 21 days before illness onset. Initial Sepsis Screen: Does the patient meet any 2 criteria? Systolic BP < 90 mmHg. HR > 90 bpm. Does the patient have a suspected source of infection? No. Patient's initial sepsis screen is negative. Risk Assessment: Do you want to hurt yourself or someone else? Patient reports no desire to harm self or others. Onset of symptoms was May 15, 2021. 18:47 Method Of Arrival: EMS: [facility] as6 18:47 Acuity: YUKI 3 as6 19:35 Care prior to arrival: Medication(s) given: 25 mg Benadryl 250 mcg fentanyl IV as6 initiated. 22 GA, in the right forearm. Triage Assessment: 18:51 General: Appears in no apparent distress. comfortable, Behavior is calm, cooperative. as6 Pain: Complains of pain in right flank. Historical: - Allergies: 18:51 Toradol; as6 18:51 Morphine; as6 18:51 Doxycycline; as6 18:51 Ciprofloxacin; as6 18:51 Amoxicillin; as6 18:51 Vancomycin; as6 18:51 Levofloxacin; as6 18:51 Zofran; as6 20:01 Bactrim; bs2 20:01 CLAVULANIC ACID; bs2 20:01 Demerol; bs2 20:01 PENICILLINS; bs2 20:01 TRIMETHOPRIM; bs2 - Home Meds: 20:01 Celexa 20 mg Oral tab 1 tab once daily [Active]; fentanyl 25 mcg/hr Topical pt72 1 bs2 patch every 72 hours [Active]; Pepcid 20 mg Oral tab 1 tab once daily [Active]; Percocet 10-325 mg Oral tab 1 tab every 6 hours [Active]; Reglan 10 mg Oral tab 1 tab once daily [Active]; Wellbutrin SR 150 mg Oral TbER 1 tab 2 times per day [Active]; - PMHx: 18:51 Asthma; Cerebral Palsy; cluster headaches; decubitus ulcers on feet; GERD; as6 Hydrocephalus; Hypertension; spina bifida; - Immunization history:: Adult Immunizations not up to date, Client reports having NOT received the Covid vaccine. Last tetanus immunization: < 10 years ago Flu vaccine is not up to date. - Social history:: Smoking status: Patient denies any tobacco usage or history of. Screenin:00 Abuse screen: Denies threats or abuse. Denies injuries from another. Nutritional bs2 screening: No deficits noted. Tuberculosis screening: No symptoms or risk factors identified. Fall Risk None identified. Assessment: 19:30 General: Appears in no apparent distress. comfortable, Behavior is calm, cooperative. as6 Pain: Complains of pain in right flank. Neuro: Level of Consciousness is awake, alert, obeys commands, Oriented to person, place, time, situation. Cardiovascular: Capillary refill < 3 seconds Patient's skin is warm and dry. Respiratory: Airway is patent Respiratory effort is even, unlabored, Respiratory pattern is regular, symmetrical. GI: Reports nausea. : [place] in place. Derm: Skin Wound noted heel of left foot Decubitus located on sacrum. Musculoskeletal:. Vital Signs: 18:47 BP 139 / 101; Pulse 111; Resp 22 S; Temp 98.8; Pulse Ox 94% on R/A; Weight 145.15 kg; as6 Height 4 ft. 11 in. (149.86 cm); Pain 10/10; 21:45 BP 129 / 91; Pulse 100; Resp 18; Pulse Ox 97% on R/A; df1 22:30 BP 120 / 82; Pulse 105; Resp 18; Pulse Ox 98% on R/A; df1 23:25 BP 118 / 78; Pulse 108; Resp 20; Pulse Ox 98% on R/A; df1 18:47 Body Mass Index 64.63 (145.15 kg, 149.86 cm) as6 ED Course: 18:43 Patient arrived in ED. jd3 18:44 José Luis Mason, NAIF is Primary Nurse. jd3 18:51 Triage completed. as6 18:51 Arm band placed on. as6 19:01 Sky Tran MD is Attending Physician. mh7 19:24 May Dupont, RN is Primary Nurse. bs2 19:34 Maintain EMS IV. Dressing intact. Good blood return noted. Site clean \\T\\ dry. Gauge \\T\\ as 6 site: 22 g to r forearm . 19:59 Blood Culture Adult (2) Sent. bs2 20:00 Patient has correct armband on for positive identification. Bed in low position. Call bs2 light in reach. Side rails up X2. Pulse ox on. NIBP on. Door closed. Lights dimmed. Warm blanket given. 20:00 Basic Metabolic Panel Sent. bs2 20:00 CBC with Diff Sent. bs2 20:00 Hepatic Function Sent. bs2 20:00 Lipase Sent. bs2 20:00 Initial lab(s) drawn, by nv, sent to lab. First set of blood cultures drawn by nv, bs2 Second set of blood cultures drawn by nv. 20:18 Blood Culture Adult (2) Sent. bs2 20:18 Basic Metabolic Panel Sent. bs2 20:18 CBC with Diff Sent. bs2 20:18 Hepatic Function Sent. bs2 20:18 Lipase Sent. bs2 20:55 CT Abd/Pelvis - IV Contrast Only In Process Unspecified. EDMS 21:30 Eren Varela MD is Hospitalizing Provider. 7 22:08 COVID-19 SARS RT PCR (Document "Date of Onset" if Symptomatic) Sent. df1 23:19 No provider procedures requiring assistance completed. Patient admitted, IV remains in df1 place. Administered Medications: 19:56 Drug: Dilaudid (HYDROmorphone) 1 mg Route: IVP; Site: right forearm; bs2 23:30 Follow up: Response: Pain is decreased df1 19:56 Drug: Phenergan (promethazine) 12.5 mg Route: IVP; Site: right forearm; bs2 23:29 Follow up: Response: Nausea is decreased df1 19:57 Drug: NS 0.9% 1000 ml Route: IV; Rate: 1000 ml; Site: right forearm; bs2 23:30 Follow up: IV Status: Completed infusion; IV Intake: 1000ml df1 21:30 Drug: Dilaudid (HYDROmorphone) 1 mg Route: IVP; Site: right forearm; bs2 23:29 Follow up: Response: Pain is decreased df1 21:55 Drug: Rocephin (cefTRIAXone) 1 grams Route: IV; Rate: per protocol; Site: right df1 antecubital; 23:29 Follow up: Response: No adverse reaction; IV Status: Completed infusion df1 Intake: 23:30 IV: 1000ml; Total: 1000ml. df1 Outcome: 21:31 Decision to Hospitalize by Provider. 7 05/17 01:14 Admitted to Med/surg accompanied by tech, via stretcher, room 208, with chart, Report bs2 called to Floor Nurse for 208 Condition: stable Instructed on the need for admit. 01:40 Patient left the ED. bs2 Signatures: Dispatcher [employer] José Luis Amin, RN RN jd3 Sky Tran MD MD 7 May Dupont RN RN bs2 Tiki Obrien df1 Zuhair Monroy RN RN as6
--- NOTE | 2021-05-16 21:32 | EDPHYS ---
Physician Documentation [facility] Name: Roland Feldman Jr Age: 35 yrs Sex: Male : 1985 Arrival Date: 05/16/2021 Time: 18:43 Bed 7 Private MD: ED Physician Sky Tran HPI: 05/16 19:25 This 35 yrs old Black Male presents to ER via EMS with complaints of Right lower back mh7 pain. 19:25 The patient complains of pain in the right flank. The pain radiates to the Right mh7 abdomen. Onset: The symptoms/episode began/occurred last night. Modifying factors: The symptoms are alleviated by nothing. the symptoms are aggravated by movement, palpation/percussion. Associated signs and symptoms: Pertinent positives: diarrhea, nausea, Pertinent negatives: dizziness, dysuria, fever, urinary frequency, headache, hematuria, pain radiating to the lower extremities, vomiting. Severity of pain: At its worst the pain was moderate today, in the emergency department the pain is unchanged. The patient has experienced similar episodes in the past, multiple times. Historical: - Allergies: 18:51 Toradol; as6 18:51 Morphine; as6 18:51 Doxycycline; as6 18:51 Ciprofloxacin; as6 18:51 Amoxicillin; as6 18:51 Vancomycin; as6 18:51 Levofloxacin; as6 18:51 Zofran; as6 20:01 Bactrim; bs2 20:01 CLAVULANIC ACID; bs2 20:01 Demerol; bs2 20:01 PENICILLINS; bs2 20:01 TRIMETHOPRIM; bs2 - Home Meds: 20:01 Celexa 20 mg Oral tab 1 tab once daily [Active]; fentanyl 25 mcg/hr Topical pt72 1 bs2 patch every 72 hours [Active]; Pepcid 20 mg Oral tab 1 tab once daily [Active]; Percocet 10-325 mg Oral tab 1 tab every 6 hours [Active]; Reglan 10 mg Oral tab 1 tab once daily [Active]; Wellbutrin SR 150 mg Oral TbER 1 tab 2 times per day [Active]; - PMHx: 18:51 Asthma; Cerebral Palsy; cluster headaches; decubitus ulcers on feet; GERD; as6 Hydrocephalus; Hypertension; spina bifida; - Immunization history:: Adult Immunizations not up to date, Client reports having NOT received the Covid vaccine. Last tetanus immunization: < 10 years ago Flu vaccine is not up to date. - Social history:: Smoking status: Patient denies any tobacco usage or history of. ROS: 19:25 Constitutional: Negative for fever, chills, and weight loss, Eyes: Negative for injury, mh7 pain, redness, and discharge, ENT: Negative for injury, pain, and discharge, Neck: Negative for injury, pain, and swelling, Cardiovascular: Negative for chest pain, palpitations, and edema, Respiratory: Negative for shortness of breath, cough, wheezing, and pleuritic chest pain, : Negative for injury, bleeding, discharge, and swelling, MS/Extremity: Negative for injury and deformity. 19:25 Neuro: Negative for headache, weakness, numbness, tingling, and seizure, Psych: Negative for depression, anxiety, suicide ideation, homicidal ideation, and hallucinations, Allergy/Immunology: Negative for hives, rash, and allergies, Endocrine: Negative for neck swelling, polydipsia, polyuria, polyphagia, and marked weight changes, Hematologic/Lymphatic: Negative for swollen nodes, abnormal bleeding, and unusual bruising. 19:25 Skin: Positive for ulceration, Multiple decubitus, scrotal, chronic. Exam: 19:25 Head/Face: Normocephalic, atraumatic. Eyes: Pupils equal round and reactive to light, mh7 extra-ocular motions intact. Lids and lashes normal. Conjunctiva and sclera are non-icteric and not injected. Cornea within normal limits. Periorbital areas with no swelling, redness, or edema. Neck: Trachea midline, no thyromegaly or masses palpated, and no cervical lymphadenopathy. Supple, full range of motion without nuchal rigidity, or vertebral point tenderness. No Meningismus. Chest/axilla: Normal chest wall appearance and motion. Nontender with no deformity. No lesions are appreciated. 19:25 Respiratory: Lungs have equal breath sounds bilaterally, clear to auscultation and percussion. No rales, rhonchi or wheezes noted. No increased work of breathing, no retractions or nasal flaring. 19:25 MS/ Extremity: Pulses equal, no cyanosis. Neurovascular intact. Full, normal range of motion. 19:25 Psych: Awake, alert, with orientation to person, place and time. Behavior, mood, and affect are within normal limits. 19:25 Constitutional: The patient appears in no acute distress, alert, awake, uncomfortable. 19:25 Cardiovascular: Rate: tachycardic, Rhythm: regular, Pulses: no pulse deficits are appreciated, Heart sounds: normal, normal S1and S2, Edema: is not appreciated, JVD: is not appreciated. 19:25 Neuro: Orientation: is normal, Mentation: is normal, Memory: is normal, Cranial nerves: grossly normal, Cerebellar function: is grossly normal, Motor: is normal, Sensation: is normal, Gait: not tested. seizure activity, is not displayed by the patient, Abnormal movements: there are no abnormal movements. 19:25 Abdomen/GI: Inspection: obese Bowel sounds: normal, in all quadrants, Palpation: mild mh7 abdominal tenderness, in the right lower quadrant, mass, is not appreciated, rebound tenderness, is not appreciated, voluntary guarding, is not appreciated, involuntary guarding, is not appreciated, no appreciated organomegaly, Rectal exam: the exam is deferred, because of patient request, Indicators: McBurney's point is not tender, Gutierrez's sign is negative, Rovsing's sign is negative, Obturator sign is negative, Psoas sign is negative, Liver: no appreciated palpable abnormalities, Hernia: not appreciated, Suprapubic catheter in place. 19:25 Back: normal spinal alignment noted, CVA tenderness, that is moderate, is noted on the mh7 right, muscle spasm, is not present. 19:25 : CVA tenderness, on the right, Male external genitalia: Ulcerations to perennial and scrotum with healing, no erythema, no discharge, no swelling, no tenderness, Bladder: tenderness, that is moderate, Rectal exam: is refused by patient or guardian, Healing decubitus ulcers without erythema, discharge, induration, a suprapubic catheter is noted. Vital Signs: 18:47 BP 139 / 101; Pulse 111; Resp 22 S; Temp 98.8; Pulse Ox 94% on R/A; Weight 145.15 kg; as6 Height 4 ft. 11 in. (149.86 cm); Pain 10/10; 21:45 BP 129 / 91; Pulse 100; Resp 18; Pulse Ox 97% on R/A; df1 22:30 BP 120 / 82; Pulse 105; Resp 18; Pulse Ox 98% on R/A; df1 23:25 BP 118 / 78; Pulse 108; Resp 20; Pulse Ox 98% on R/A; df1 18:47 Body Mass Index 64.63 (145.15 kg, 149.86 cm) as6 MDM: 21:29 Differential diagnosis: nephrolithiasis, pyelonephritis, UTI, testicular torsion, mh7 diverticulitis. Data reviewed: vital signs, nurses notes, EMS record, old medical records, lab test result(s), CBC, electrolytes, urinalysis, EKG, radiologic studies, CT scan. Data interpreted: Pulse oximetry: on room air is 96 %. Interpretation: normal. Counseling: I had a detailed discussion with the patient and/or guardian regarding: the historical points, exam findings, and any diagnostic results supporting the discharge/admit diagnosis, the presence of at least one elevated blood pressure reading (>120/80) during this emergency department visit, lab results, radiology results, the need for further work-up and treatment in the hospital. Response to treatment: the patient's symptoms have markedly improved after treatment. 21:31 Patient medically screened. [facility] 05/16 19:23 Order name: Basic Metabolic Panel; Complete Time: 20:30 [facility] 05/16 19:23 Order name: CBC with Diff; Complete Time: 20:30 [facility] 05/16 19:23 Order name: Hepatic Function; Complete Time: 20:30 [facility] 05/16 19:23 Order name: Lipase; Complete Time: 20:30 [facility] 05/16 19:23 Order name: Urine Culture [facility] 05/16 19:23 Order name: Blood Culture Adult (2) [facility] 05/16 19:25 Order name: CT Abd/Pelvis - IV Contrast Only; Complete Time: 21:09 [facility] 05/16 20:32 Order name: Lactate; Complete Time: 00:45 [facility] 05/16 21:16 Order name: Urine Dipstick-Ancillary; Complete Time: 21:27 [facility] 05/16 21:38 Order name: Comprehensive Metabolic Panel [facility] 05/16 21:38 Order name: Comprehensive Metabolic Panel [facility] 05/16 21:39 Order name: CBC with Automated Diff [facility] 05/16 21:39 Order name: CBC with Automated Diff [facility] 05/16 22:04 Order name: COVID-19 SARS RT PCR (Document "Date of Onset" if Symptomatic); Complete df1 Time: 00:45 05/16 19:23 Order name: IV Saline Lock; Complete Time: 19:57 [facility] 05/16 19:23 Order name: Labs collected and sent; Complete Time: 19:57 [facility] 05/16 19:42 Order name: EKG; Complete Time: 19:42 [facility] 05/16 19:42 Order name: EKG - Nurse/Tech; Complete Time: 20:17 [facility] 05/16 21:39 Order name: 60g Consistent Carbohydrate (ADA ) EDMS Administered Medications: 19:56 Drug: Dilaudid (HYDROmorphone) 1 mg Route: IVP; Site: right forearm; bs2 23:30 Follow up: Response: Pain is decreased df1 19:56 Drug: Phenergan (promethazine) 12.5 mg Route: IVP; Site: right forearm; bs2 23:29 Follow up: Response: Nausea is decreased df1 19:57 Drug: NS 0.9% 1000 ml Route: IV; Rate: 1000 ml; Site: right forearm; bs2 23:30 Follow up: IV Status: Completed infusion; IV Intake: 1000ml df1 21:30 Drug: Dilaudid (HYDROmorphone) 1 mg Route: IVP; Site: right forearm; bs2 23:29 Follow up: Response: Pain is decreased df1 21:55 Drug: Rocephin (cefTRIAXone) 1 grams Route: IV; Rate: per protocol; Site: right df1 antecubital; 23:29 Follow up: Response: No adverse reaction; IV Status: Completed infusion df1 Disposition Summary: 05/16/21 21:31 Hospitalization Ordered Hospitalization Status: Inpatient Admission [facility] Provider: Eren Varela Location: Telemetry/MedSurg (Inpatient) [facility] Condition: Stable [facility] Problem: new [facility] Symptoms: have improved [facility] Bed/Room Type: Standard [facility] Room Assignment: 208(05/17/21 00:34) Diagnosis - Pyelonephritis mh7 - Nausea with vomiting, unspecified [facility] - Dehydration [facility] Forms: - Medication Reconciliation Form [facility] - SBAR form [facility] Signatures: Dispatcher [employer] EDMS Kari Maguire RN RN cg Sky Tran MD MD mh7 May Dupont RN RN bs2 Tiki Obrien df1 Zuhair Monroy RN RN as6 Corrections: (The following items were deleted from the chart) 21:31 7 22:[address] [place] [address] 05/17 00:34 05/16 22:49 cg
[2021-05-16] MEDS ORDERED: ALBUTEROL 2.5 MG/3 ML NEB SOL NEB PRN (21:35)
[2021-05-16] MEDS ORDERED: NA CHLORIDE 0.9% 50 ML ONE (21:47)
[2021-05-16] MEDS ORDERED: CEFTRIAXONE 1000 MG/VIAL ONE (21:47)
[2021-05-16] MEDS ORDERED: PROMETHAZINE INJ 25 MG/ML AMP ONE (23:51)
[2021-05-16] MEDS ORDERED: NA CHLORIDE 0.9% 1,000 ML ONE (23:51)
[2021-05-17] MEDS ORDERED: IPRATROPIUM BROM 0.5MG/2.5ML ONE (00:12)
[2021-05-17] MEDS: IPRATROPIUM BROM 0.5MG/2.5ML NEB SCH ×4 (00:16→20:00)
[2021-05-17] MEDS: HYDROMORPHONE HCL 1 MG/ML INJ IV PRN ×3 (01:00→19:06)
[2021-05-17] MEDS: NA CHLORIDE 0.9% 1,000 ML IV SCH ×4 (01:00→22:00)
[2021-05-17] MEDS: PROMETHAZINE INJ 25 MG/ML AMP IV PRN ×3 (01:00→19:06)
[2021-05-17 02:14] VITALS: BMI 66.2
[2021-05-17 04:33] LABS: Absolute Lymphocytes (CBC) 2.2 K/uL (0.7-4.9); Basophils % 0.6 % (0-1.3); Hematocrit 48.5 % (39.6-49.0); Lymphocytes % 18.6 % (15.3-44.8); MPV 8.7 fL (7.6-11.3)
[2021-05-17 04:49] LABS: ALT/SGPT 37 U/L (12-78); AST/SGOT 14 U/L (15-37); Albumin 2.9 g/dL (3.4-5.0); Alkaline Phosphatase 99 U/L (45-117); BUN Blood Urea Nitrogen 10 mg/dL (7-18); Bicarbonate 26 mmol/L (21-32); Bilirubin Total 0.4 mg/dL (0.2-1.0); Glucose Level 127 mg/dL (74-106); Potassium 3.9 mmol/L (3.5-5.1); Protein, Total 7.5 g/dL (6.4-8.2); Sodium Level 142 mmol/L (136-145)
[2021-05-17] MEDS: CEFTRIAXONE 1 GM/NS 50 ML 1 GM/50 ML BAG IV SCH ×2 (09:30→21:23)
--- NOTE | 2021-05-17 13:12 | EKG ---
Test Date: 2021-05-16 Test Time: 20:11:15 Death Claim Examiner: NAHID MEASUREMENT RESULTS: Intervals: Rate: 91 NH: 152 QRSD: 92 QT: 354 QTc: 435 Bradley: P: 45 NH: 152 QRS: 63 T: 46 INTERPRETIVE STATEMENTS: Normal sinus rhythm Normal ECG Compared to ECG 01/07/2020 12:42:39 No significant changes Electronically Signed On 05-17-21 13:10:26 CDT by Justin Heredia
--- NOTE | 2021-05-17 18:25 | P.HP ---
Certification for Inpatient Patient admitted to: Inpatient With expected LOS: >2 Midnights Patient will require the following post-hospital care: None Practitioner: I am a practitioner with admitting privileges, knowledge of patient current condition, hospital course, and medical plan of care. Services: Services provided to patient in accordance with Admission requirements found in Title 42 Section 412.3 of the Code of Federal Regulations Patient History Date of Service: 05/17/21 Primary Care Provider: Nichole Reason for admission: uti History of Present Illness: Patient comes in with back pain The patient was found to have a UTI. Was found to have mild stranding on CT. The patient is currently doing well. Allergies levofloxacin [From Levaquin] Allergy (Intermediate, Verified 04/01/18 22:08) Hives morphine Allergy (Intermediate, Verified 04/01/18 22:08) Hives sulfamethoxazole [From Bactrim] Allergy (Intermediate, Verified 04/01/18 22:08) Hives ketorolac tromethamine [From Toradol] Allergy (Verified 04/01/18 22:08) Nausea/Vomiting vancomycin Allergy (Verified 04/01/18 22:08) Hives ondansetron [From Zofran (as hydrochloride)] Adverse Reaction (Mild, Verified 04/01/18 22:08) Nausea/Vomiting amoxicillin [From Augmentin] Adverse Reaction (Verified 04/01/18 22:08) Hives/Rash ciprofloxacin Adverse Reaction (Verified 04/01/18 22:08) Nausea/Vomiting doxycycline Adverse Reaction (Verified 04/01/18 22:08) Nausea/Vomiting sesame seed Adverse Reaction (Verified 04/01/18 22:08) diarrhea pop corn Adverse Reaction (Severe, Uncoded 04/01/18 22:08) diarrhea Home Medications: Oxycodone HCl [Roxicodone] 5 mg PO QID PRN 03/06/18 Acetaminophen [Tylenol] 325 mg PO Q6HR PRN 06/08/19 Citalopram Hydrobromide [Citalopram HBr] 40 mg PO DAILY 06/08/19 Famotidine [Pepcid] 20 mg PO BID 06/08/19 Ibuprofen 800 mg PO TID 06/08/19 Lidocaine [Aspercreme] 1 each TP Q12HR 06/08/19 Melatonin/Pyridoxine [Melatonin 5 mg Tablet] 2 each PO BEDTIME 06/08/19 Metoclopramide [Reglan*] 10 mg PO BEDTIME 06/08/19 Trazodone [Desyrel*] 50 mg PO BEDTIME 06/08/19 buPROPion HCl [Wellbutrin Sr] 150 mg PO BID 06/08/19 - Past Medical/Surgical History Diabetic: No -: Spina Bifida with hydrocephalus -: Depression -: Insomnia -: Incontinence -: GERD -: Chronic pain syndrome -: Muscle wasting -: Paraplegia -: Shunt revision -: Cholecystectomy -: Foot surgery -: Hip sx BL -: Bilateral hip surgery -: Appendectomy Psychosocial/ Personal History: Patient currently single. He has no children. He is disabled. - Family History Father -: Hypertension Mother -: Hypertension - Social History Smoking Status: Unknown if ever smoked Alcohol use: Yes CD- Drugs: No Caffeine use: Yes Place of Residence: Home Review of Systems 10-point ROS is otherwise unremarkable Musculoskeletal: Back Pain Physical Examination - Vital Signs Temperature: 98.4 F Blood Pressure: 140/79 Pulse: 97 Respirations: 16 Pulse Ox (%): 95 - Physical Exam General: Alert, In no apparent distress HEENT: Atraumatic, PERRLA, Mucous membr. moist/pink, EOMI, Sclerae nonicteric Neck: Supple, 2+ carotid pulse no bruit, No LAD, Without JVD or thyroid abnormality Respiratory: Clear to auscultation bilaterally, Normal air movement Cardiovascular: Regular rate/rhythm, Normal S1 S2 Gastrointestinal: Normal bowel sounds, No tenderness Musculoskeletal: No tenderness Integumentary: No rashes Neurological: Normal gait, Normal speech, Normal strength at 5/5 x4 extr, Normal tone, Normal affect Lymphatics: No axilla or inguinal lymphadenopathy - Studies Laboratory Data (last 24 hrs) 05/16/21 19:45: WBC 11.20 H, Hgb 16.5, Hct 50.1 H, Plt Count 475 H 05/16/21 19:45: Sodium 141, Potassium 3.7, BUN 11, Creatinine 0.72, Glucose 82, Total Bilirubin 0.5, AST 13 L, ALT 41, Alkaline Phosphatase 108, Lipase 53 L Assessment and Plan - Problems (Diagnosis) (1) UTI (urinary tract infection) Current Visit: Yes Status: Acute Plan: Will continue the patient on rocephin Cultures are negative at this point. Qualifiers: Urinary tract infection type: acute cystitis (2) DM2 (diabetes mellitus, type 2) Current Visit: Yes Status: Chronic Plan: restart lantus. 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 Will adjust as needed Discharge Plan: Home - Advance Directives Does patient have a Living Will: No Does patient have a Durable POA for Healthcare: Yes - Code Status/Comfort Care Code Status Assessed: No Code Status: Full Code Physician Review: Patient Assessed, Agree with Above Assessment and Plan Critical Care: No Time Spent Managing Pts Care (In Minutes): 50
[2021-05-17] MEDS ORDERED: GLUCAGON 1 MG/VIAL IM PRN (18:32)
[2021-05-17] MEDS ORDERED: D50W 25 GM/50 ML SYRINGE IV PRN (18:32)
[2021-05-17] MEDS ORDERED: QUETIAPINE 25 MG TAB PO SCH (21:00)
[2021-05-17] MEDS ORDERED: INSULIN GLARGINE 100 UNITS/ML SQ SCH (21:00)
[2021-05-17] MEDS: INSULIN -REGULAR HUMAN 50 UNIT/0.5 ML ML SQ SCH (21:00)
[2021-05-17] MEDS: BUPROPRION HCL S.R. 150MG TAB PO SCH (21:24)
[2021-05-18] MEDS: NA CHLORIDE 0.9% 1,000 ML IV SCH ×2 (00:06→07:51)
[2021-05-18] MEDS: HYDROMORPHONE HCL 1 MG/ML INJ IV PRN ×2 (01:09→07:14)
[2021-05-18] MEDS: PROMETHAZINE INJ 25 MG/ML AMP IV PRN ×2 (01:10→07:13)
[2021-05-18] MEDS: IPRATROPIUM BROM 0.5MG/2.5ML NEB SCH ×2 (02:00→08:00)
[2021-05-18 06:12] LABS: Absolute Lymphocytes (CBC) 2.1 K/uL (0.7-4.9); Basophils % 0.6 % (0-1.3); Hematocrit 45.5 % (39.6-49.0); Lymphocytes % 22.7 % (15.3-44.8); MPV 7.9 fL (7.6-11.3); RBC Red Blood Cell Count 5.07 M/uL (4.33-5.43)
[2021-05-18 06:20] LABS: ALT/SGPT 33 U/L (12-78); AST/SGOT 12 U/L (15-37); Albumin 2.8 g/dL (3.4-5.0); Alkaline Phosphatase 98 U/L (45-117); BUN Blood Urea Nitrogen 10 mg/dL (7-18); Bicarbonate 23 mmol/L (21-32); Bilirubin Total 0.3 mg/dL (0.2-1.0); Glucose Level 116 mg/dL (74-106); Potassium 4.1 mmol/L (3.5-5.1); Protein, Total 7.6 g/dL (6.4-8.2); Sodium Level 142 mmol/L (136-145)
[2021-05-18] MEDS: INSULIN -REGULAR HUMAN 50 UNIT/0.5 ML ML SQ SCH (07:30)
[2021-05-18 08:08] VITALS: O2SAT 92
--- NOTE | 2021-05-18 08:30 | P.DS ---
Admission Date: 05/16/21 Discharge Date: 05/18/21 Primary Care Provider: Nichole Disposition: ROUTINE DISCHARGE Discharge Condition: GOOD Reason for Admission: uti - Problems (1) UTI (urinary tract infection) Current Visit: Yes Status: Acute Qualifiers: Urinary tract infection type: acute cystitis (2) DM2 (diabetes mellitus, type 2) Current Visit: Yes Status: Chronic Qualifiers: Diabetes mellitus oysterman insulin use: with oysterman use (3) Hypertension Onset Date: 05/17/17 Current Visit: No Status: Chronic Brief History of Present Illness: Patient comes in with back pain The patient was found to have a UTI. Was found to have mild stranding on CT. The patient is currently doing well. Hospital Course: Patient is doing well. No growth on the cultures. Will discharge him home today on keflex. He can get his last dose of rocephin before he leaves Vital Signs/Physical Exam: Temp Pulse Resp BP Pulse Ox 97.6 F 72 16 122/64 94 05/18/21 04:00 05/18/21 04:00 05/18/21 07:44 05/18/21 04:00 05/18/21 07:44 General: Alert, In no apparent distress HEENT: Atraumatic, PERRLA, EOMI Neck: Supple, JVD not distended Respiratory: Clear to auscultation bilaterally, Normal air movement Cardiovascular: Regular rate/rhythm, Normal S1 S2 Gastrointestinal: Normal bowel sounds, No tenderness Musculoskeletal: No tenderness Integumentary: No rashes Neurological: Normal speech, Normal tone, Normal affect Lymphatics: No axilla or inguinal lymphadenopathy Laboratory Data at Discharge: WBC 9.00 K/uL (4.3-10.9) D 05/18/21 05:53 Hgb 15.0 g/dL (13.6-17.9) 05/18/21 05:53 Hct 45.5 % (39.6-49.0) 05/18/21 05:53 Plt Count 442 K/uL (152-406) H D 05/18/21 05:53 Sodium 142 mmol/L (136-145) 05/18/21 05:53 Potassium 4.1 mmol/L (3.5-5.1) 05/18/21 05:53 BUN 10 mg/dL (7-18) 05/18/21 05:53 Creatinine 0.57 mg/dL (0.55-1.3) 05/18/21 05:53 Glucose 116 mg/dL (74-106) H 05/18/21 05:53 Total Bilirubin 0.3 mg/dL (0.2-1.0) 05/18/21 05:53 AST 12 U/L (15-37) L 05/18/21 05:53 ALT 33 U/L (12-78) 05/18/21 05:53 Alkaline Phosphatase 98 U/L (45-117) 05/18/21 05:53 Lipase 53 U/L (73-393) L 05/16/21 19:45 Home Medications: Oxycodone HCl [Roxicodone] 5 mg PO QID PRN 03/06/18 Acetaminophen [Tylenol] 325 mg PO Q6HR PRN 06/08/19 Citalopram Hydrobromide [Citalopram HBr] 40 mg PO DAILY 06/08/19 Famotidine [Pepcid] 20 mg PO BID 06/08/19 Ibuprofen 800 mg PO TID 06/08/19 Lidocaine [Aspercreme] 1 each TP Q12HR 06/08/19 Melatonin/Pyridoxine [Melatonin 5 mg Tablet] 2 each PO BEDTIME 06/08/19 Metoclopramide [Reglan*] 10 mg PO BEDTIME 06/08/19 Trazodone [Desyrel*] 50 mg PO BEDTIME 06/08/19 buPROPion HCl [Wellbutrin Sr] 150 mg PO BID 06/08/19 Cephalexin [Keflex] 500 mg PO Q12HR 6AM AND 6PM 5 Days #10 capsule 05/18/21 New Medications: Cephalexin [Keflex] 500 mg PO Q12HR 6AM AND 6PM 5 Days #10 capsule Diet: ADA Activity: Ad dinorah Followup: Eren Varela MD [ACTIVE - CAN ADMIT] - 1 Week (call the office for a telehealth appointment ) Physician Review: Patient Assessed, Agree with Above Assessment and Plan Time spent managing pt's care (in minutes): 30
[2021-05-18] MEDS: CEFTRIAXONE 1 GM/NS 50 ML 1 GM/50 ML BAG IV SCH (09:00)
[2021-05-18] MEDS: BUPROPRION HCL S.R. 150MG TAB PO SCH (09:00)
[2021-05-18 10:36] VITALS: BP 123/82; TEMP 97.9
== END 2021-05-18 09:45 | disposition home health service (06) | DRG 690 ==
LOC: ER 18:29 → ERHOLD 22:44 → 2ND 05-17 00:42
PROVIDERS: ADMIT Internal Medicine; ATTEND Internal Medicine
DX: N39.0 Urinary tract infection, site not specified (principal); Q05.4 Unspecified spina bifida with hydrocephalus; G82.20 Paraplegia, unspecified; E11.9 Type 2 diabetes mellitus without complications; I10 Essential (primary) hypertension; Z88.0 Allergy status to penicillin; Z88.2 Allergy status to sulfonamides; Z20.822 Contact with and (suspected) exposure to COVID-19
CPT/HCPCS: 36415; 74177; 80048; 80053; 80076; 81003; 82947; 83605; 83690; 85025; 87040; 87077; 87086; 87088; 87186; 87205; 93005; 94640; 94760; 96361; 96365; 96366; 96375; 99285; J0696; J1170; J1815; J2550; J7030; Q9967; U0003

== ENCOUNTER 2021-06-05 15:35 | Observation (INO) | payer OTHER ==
--- OUTSIDE RECORDS SUMMARY | 2021-06-05 15:42 | XMS REPORT | Continuity of Care Document ---
:1985 Author Organization [facility] t Address [address] [place] [place] [address] Care Team Providers Name Role Phone Sharpless Primary Care Physician Analia ROMO, F Attending Clinician ANALIA F Attending Clinician Unavailable MITCHELL Attending Clinician Unavailable CHADWICKLAMAR Attending Clinician Unavailable ALEX Admitting Clinician Unavailable CHADWICKLAMAR Colón Admitting Clinician Unavailable Payers Payer Name Policy Type Policy Number Effective Date Expiration Date S ource Advance Directives Directive Decision Effective Termination Comments Source Date Date Healthcare Agents on N/A [facility] FileNameRelationBrecks[facility] / [facility] Hospitalcare [facility] Agent Medical RelationshipCommunicationMimbres Memorial Hospital Branch [facility] Care [phone] (Mobile) Problems Condition Condition Condition Status Onset Resolution Last Treating Co mments Source Name Details Category Date Date Treatment Clinician Date Hyperglyce Hyperglyce Disease Active [facility] 07 [facility] without without 00:00: Medical ketosis ketosis 00 Center HEADACHE Diagnosis Active 2017-072017-11-20 M emoria 1-08 09:20:00 l HEADACHE 00:00: Christian n [address] [facility] SHUNT Diagnosis Active 2017-11-14 Mem oria MALFUNCTIO - 20:00:00 l N SHUNT 00:00: Jason MALFUNCTIO 00 N Active 11/14/2017 [facility] ACUTE Diagnosis Active 2017-11-20 Mem oria HEADACHE 11-14 09:20:00 l ACUTE 00:00: [place] HEADACHE 00 Active 11/14/2017 [facility] Spina Spina Disease Active [facility] bifida bifida 12-24 [facility] - 00:00: Medical 00 [place] Pyelonephr Pyelonephr Disease Active [facility] itis itis 12-23 [facility] - 00:00: Medical 00 [place] Morbid Morbid Disease Active Univers obesity obesity 1-04 ity of with body [place] 00:[place] mass index mass index 00 Me dical of 50 or of 50 or Branch higher higher Spina Problem 2018-12-09 Memor ia bifida, 14:14:02 l unspecifie Spina Kristen nn d bifida, unspecifie d 12/09/2018 [facility] Nausea Problem 2018-12-09 Memor ia with 14:14:02 l vomiting, Nausea Kristen nn unspecifie with d vomiting, unspecifie d 12/09/2018 [facility] Diplopia Problem 2018-12-09 Mem oria 14:14:02 l Diplopia Christian n 12/09/2018 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-09 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:14:02 l other Acquired Christian n specified absence of parts of other digestive specified tract parts of digestive tract 12/09/2018 [facility] Nicotine Problem 2018-12-09 Mem oria dependence 14:14:02 l , Nicotine Christian n cigarettes dependence , , uncomplica cigarettes lester , uncomplica lester 12/09/2018 [facility] Presence Problem 2018-12-09 Mem oria of 14:14:02 l cerebrospi Presence He rmann nal fluid of drainage cerebrospi device nal fluid drainage device 12/09/2018 [facility] Allergy Problem 2018-12-09 Erwin benjamin status to 14:14:02 l other Allergy [place] antibiotic status to agents other status antibiotic agents status 12/09/2018 [facility] Allergy Problem 2018-12-09 Erwin benjamin status to 14:14:02 l other Allergy Jason drugs, status to medicament other s and drugs, biological medicament substances s and status biological substances status 12/09/2018 [facility] Allergy Problem 2018-12-09 Erwin benjamin status to 14:14:02 l narcotic Allergy Kristen nn agent status to status narcotic agent status 12/09/2018 [facility] Asthma Problem Resolve 2019-03-06 Erwin benjamin (disorder) d 01:05:55 l Asthma [place] (disorder) Resolved Problem 03/06/2019 [facility] Bronchitis Problem Resolve 2019-03-06 Memoria (disorder) d 01:05:55 l Jason Bronchitis (disorder) Resolved Problem 03/06/2019 [facility] Cerebral Problem Resolve 2019-03-06 Me moria palsy d 01:05:55 l (disorder) Cerebral He rmann palsy (disorder) Resolved Problem 03/06/2019 [facility] Hydrocepha Problem Resolve 2019-03-06 Memoria bam d 01:05:55 l (disorder) Christian n Hydrocepha bam (disorder) Resolved Problem 03/06/2019 [facility] Osteomyeli Problem Resolve 2019-03-06 Memoria tis d 01:05:55 l (disorder) Christian n Osteomyeli tis (disorder) Resolved Problem 03/06/2019 [facility] Acute pain Problem Active 2019-03-06 M emoria (finding) 01:05:55 l Acute Jason pain (finding) Active Problem 03/06/2019 [facility] Headache Problem Active 2019-03-06 Mem oria (finding) 01:05:55 l Headache Christian n (finding) Active Problem 03/06/2019 [facility] History of Past Illness Condition Condition Condition Status Onset Resolution Last Treating Co mments Source Name Details Category Date Date Treatment Clinician Date Headache Problem 2017-072018-12-092018-112018-12-09 Memoria -08 14:14:02 14:14:02 l Headache 06:00: Christian n 00 05/22/2018 12/09/2018 [facility] Allergies, Adverse Reactions, Alerts Allergy Allergy Status Severity Reaction(s) Onset Inactive Treating Comm ents Source Name Type Date Date Clinician Amoxicil Propensi Active Hives 2017- Univer [place] to 7-27 ity of adverse 00:00: [place] reaction 00 [facility] AMOXICIL DRUG Active Hives Univers LAKE INGREDI 7-27 ity of 00:00: [place] 00 [facility] Metoclop Propensi Active Nausea 2016-07 Univer s ramide ty to and/or 2-20 ity of Hcl adverse Vomiting 00:00: [place] reaction 00 [facility] METOCLOP DRUG Active N/V 2016-07 Univers RAMIDE INGREDI 2-20 ity of HCL 00:00: [place] 00 [facility] Sulfamet Propensi Active Hives 2017-[address] [facility] hoxazole ty to 6-11 [facility] - -Trimeth adverse 00:00: Medical oprim reaction 00 Center s Levoflox Propensi Active Hives 2017-[address] [facility] acin ty to 6-11 [facility] - adverse 00:00: Medical reaction 00 [place] s SULFAMET Allergy Active High Hives 2017-[address] [facility] HOXAZOLE 6-11 [facility] - -TRIMETH 00:00: Medical OPRIM 00 Center LEVOFLOX Allergy Active High Hives 2017-[address] [facility] ACIN 6-11 [facility] - 00:00: Medical 00 Center MORPHINE Allergy Active High Hives 2017-[address] 6-11 [facility] - 00:00: Medical 00 Center KETOROLA Allergy Active High Rash 2017-[address] [facility] C 6-11 [facility] - 00:00: Medical 00 Center VANCOMYC Allergy Active High Rash 2017-[address] [facility] IN 6-11 [facility] - ANALOGUE 00:00: Medical S 00 Center SESAME Allergy Active Hives 2017-[address] [facility] SEED 6-11 [facility] - 00:00: Medical 00 Center Morphine Propensi Active Hives 2017-[address] ty to 6-11 [facility] - adverse 00:00: Medical reaction 00 [place] s ONDANSET Allergy Active N\\T\\V 2017-[address] KUMAR HCL 6-11 [facility] - (PF) 00:00: Medical 00 Center Sesame Propensi Active Hives 2017-[address] [facility] Seed ty to 12-23 [facility] - adverse 00:00: Medical reaction 00 Center s Ketorola Propensi Active Rash [address] [facility] [facility] c ty to 12-23 [facility] - adverse 00:00: Medical reaction 00 Center s Vancomyc Propensi Active Rash [facility] in ty to 12-23 [facility] - Analogue adverse 00:00: Medical s reaction 00 Center s [place] [address] kumar Hcl ty to Vomiting 12-23 [facility] - (Pf) adverse 00:00: Medical reaction 00 Center s Sulfa Propensi Active Other - See Uni vers (Sulfona ty to comments 1- ity of mide adverse 00:00: [place] Antibiot reaction 00 Medica l ics) s Branch Sulfamet Propensi Active Other - See U nivers hoprim ty to comments 1- ity of Ds adverse 00:00: [place] reaction Medical s Branch Vancomyc Propensi Active Other - See [address] U nivers in ty to comments 1-04 ity of adverse 00:00: [place] reaction 00 Medical s Branch SULFA Drug Active Other-Cmnt 0 Univer s (SULFONA Class 1-04 ity of MIDE 00:00: [place] ANTIBIOT 00 Medical ICS) Branch SULFAMET DRUG Active Other-Cmnt 0 Univ ers HOPRIM 1-04 ity of DS 00:00: [place] [facility] VANCOMYC DRUG Active Other-Cmnt 0 Univ ers IN INGREDI 1-04 ity of 00:00: [place] [facility] Sulfamet Propensi Active Rash 0 Univer s hoxazole ty to 01-30 ity of adverse 00:00: [place] reaction Medical s Branch Ondanset Propensi Active Nausea 0 Univer s kumar Hcl ty to and/or 01-30 ity of (Pf) adverse Vomiting 00:00: [place] reaction Medical s Branch SULFAMET DRUG Active Rash 0 Univers HOXAZOLE INGREDI 01-30 ity of 00:00: [place] [facility] ONDANSET DRUG Active N/V 0 Univers KUMAR HCL - ity of (PF) 00:00: [place] 00 Medical Branch Levoflox Propensi Active Hives Univer s acin ty to 12-04 ity of adverse 00:00: [place] reaction 00 Medical s Branch Morphine Propensi Active Hives Univer s ty to 12-04 ity of adverse 00:00: [place] reaction 00 Medical s Branch Ketorola Propensi Active Nausea Univer s c ty to and/or 12-04 ity of Trometha adverse Vomiting 00:00: [place] mine reaction 00 Medical s Branch LEVOFLOX DRUG Active Hives Univers ACIN INGREDI 12-04 ity of 00:00: [place] 00 Medical Branch MORPHINE DRUG Active Hives Univers INGREDI 12-04 ity of 00:00: [place] 00 Medical Branch KETOROLA DRUG Active N/V Univers C INGREDI 12-04 ity of TROMETHA 00:00: [place] MINE 00 Medical Branch Minocin Minocin Active Memoria l Jason Zofran Zofran Active Memoria l [place] Levaquin Levaquin Active Memori a l [place] Bactrim Bactrim Active Memoria l Jason amoxicil amoxicil Active Memori [place] morphine morphine Active Memori a l [place] Toradol Toradol Active Memoria l Jason Morphine Adverse Active Info Not [facility] Sulfate Reaction Available [facility] Levaquin Adverse Active Info Not [facility] Reaction Available [facility] Zofran Adverse Active Info Not [facility] Reaction Available [facility] Social History Social Habit Start Date Stop Date Quantity Comments Source Exposure to Not sure [facility] SARS-CoV-2 (event) [facility] History of tobacco Cigarette Smoker [facility] - use [facility] Cigarettes smoked 2016-12-25 2016-12-[address] [facility] - current (pack per 00:00:00 00:00:00 Medical Center day) - Reported Alcohol intake 2016-07-18 2016-07-18 Current drinker Unive rsity of 00:00:00 00:00:00 of alcohol [facility] (finding) [place] Sex Assigned At [birth year] Universit y of 00:00:00 00:00:00 [facility] Smoking Status Start Date Stop Date Source Current every day smoker 2016-07-18 00:00:00 Uni versity of [facility] Medications Ordered Filled Start Stop Current Ordering Indication Dosage Frequency Signature Comments Components Source Medication Medication Date Date Medication? Clinician (SIG) Name Name FENTanyl PF 2020- No 50ug 50 mcg, Un ela (SUBLIMAZE 5-10 05-10 Intravenou it y of (PF)) 02:45: 01:34 s, ONCE, 1 [place] injection 00 :00 dose, Sun Medic al 50 mcg 11/20/20 at Branch 2145, Routine cefTRIAXone 2020- No 1000mg 1,000 mg, Univers (ROCEPHIN) 5-10 05-10 IV ity of 1,000 mg in 02:30: 01:55 Piggyback, [place] NaCl 0.9% 00 :00 ONCE, 1 Medical (NS) 50 mL dose, [facility] MINI-BAG 11/20/20 at 2130, 50 mL
Reas on for Anti-Infec tive: Documented Infection< br>Documen lester Infection Site: Urine
D uration of Therapy: 7 days famotidine No 20mg 20 mg, Univ ers (PEPCID 5-10 05-10 Slow IV ity of (PF)) 01:00: 00:12 Push, [place] injection 00 :00 ONCE, 1 Medical 20 mg dose, [facility] 11/20/20 at 2000, SAHARA proMETHazin 2020- No 25mg 25 mg, IV Univers e 5-10 05-10 Piggyback, ity of (PHENERGAN) 00:45: 00:11 [place]CE[place] 1 [place] 25 mg in 00 :00 dose, [place] Medica l NaCl 0.9% 11/20/20 at [facility] h (NS) 50 mL 1945, 50 piggyback mL FENTanyl PF 2020- No 50ug 50 mcg, Un ela (SUBLIMAZE 5-10 05-10 Intravenou it y of (PF)) 00:45: 00:12 s, ONCE, 1 [place] injection 00 :00 dose, Sun Medic al 50 mcg 11/20/20 at Branch 1945, Routine NaCl 0.9% 2020- No 1000mL at 999 Uni vers (NS) bolus 5-10 05-10 mL/hr, ity of infusion 00:00: 01:47 1,000 mL, Tim as 1,000 mL 00 :00 IV Medical Infusion, Branch ONCE, 1 dose, 11/20/20 at 1900, SAHARA cefdinir 2020- No [id number] 300mg Take 1 U nivers 300 mg 11-20 05-20 capsule by ity of capsule 00:00: 04:59 mouth 2 [place] 00 :00 (two) Medical times Branch daily for 10 days. buPROPion No 150mg QD Take [address] (WELLBUTRIN -17 -16 tablet [facility] - XL) 150 MG 00:00: 23:59 (150 mg Med ical 24 hr 00 :00 total) by Center tablet mouth daily. citalopram No 40mg QD Take [address] [facility] [...] No 0U Inject [facility] lispro 1-16 -15 0-12 Units [facility] - (HUMALOG) 00:00: 23:59 subcutaneo M edical 100 unit/mL 00 :00 usly 3 Center injection (three) times daily before meals. insulin 0 2020- No 25U Inject [address] [...] Total Volume: 1,000, Start date: 05/22/18 5:04:00 SUPERVISOR KNITTING, Duration: 30 day, Stop date: 06/21/18 5:03:00 SUPERVISOR KNITTING, 2.4, m2 Magnesium 2017-07 No Notes: Memori a Sulfate 07-22 WASTE: F/P l 10:36: - Sink; E [place] - Municipal Trash Bin Isolyte S 2017-07 No Notes: Memori a PH-7.4 07-22 (Same as: l (Bolus) IV 10:36: Isolyte S rmann PH 7.4) Phenergan 2017-07 No 12.5 mg, Erwin benjamin 08 0.5 mL, l 10:35: Route: Jason 00 IVPB, Drug form: INJ, ONCE, Dosing Weight 131.818, kg, Priority: STAT, Start date: 05/22/18 4:35:00 SUPERVISOR KNITTING, Stop date: 05/22/18 4:35:00 SUPERVISOR KNITTING Citalopram Citalopram Yes Na Gamble [address] Hydrobromid Hydrobromid 7-16 L ukes - e e 00:00: Memoria 00 l Outpati ent Clinics Seroquel Seroquel Yes Na Gamble [address] 7-16 [facility] - 00:00: Memoria 00 l Outpati ent Clinics Docusate Yes 100 mg = 1 Mem oria Sodium 100 5-08 cap, PO, l MG Oral 14:56: BID, 0 [place] Capsule 00 Refill(s) Zosyn Yes 0 Memoria 5-08 Refill(s) l 14:56: [place] 00 celecoxib Yes 200 mg = 1 Me moria 200 mg oral 5-08 cap, PO, l capsule 14:56: BID, 0 Jason 00 Refill(s) ascorbic 2018 Yes 500 mg = 1 Mem oria acid 5-08 tab, PO, l 14:56: BID, 0 [place] 00 Refill(s) acetaminoph Yes 1,000 mg = [...] 5-08 Daily, 0 l 14:56: Refill(s) Jason 00 methocarbam Yes 1,000 mg = Memoria ol 500 mg 5-08 2 tab, PO, l oral tablet 14:56: Q8H, 0 Herm carly Refill(s) LORazepam Yes 0.5 mg = 1 Me moria 0.5 mg oral 5-08 tab, PO, l tablet 14:56: Q8H, PRN Jason 00 Anxiety, 0 Refill(s) Lidocaine Yes 3 patch, Erwin benjamin Hydrochlori 5-08 TOP, l de 0.05 14:56: Daily, [place] MG/MG 00 Remove Transdermal after 12 Patch hours, 0 [Lidoderm] Refill(s) Robaxin No Notes: Memoria 5-06 (Same l 21:00: as:Robaxin [place] 00 ) Oxycodone No Notes: Memori a Hydrochlori -06 (Same as: l de 5 MG 18:06: Roxicodone Herm carly Oral Tablet 00 ) Ativan No Notes: Memoria 5-06 (Same as: l 15:18: Ativan) Jason Trazodone No Notes: Memori a Hydrochlori 5-06 [...] Notes: Memoria 5-05 NSAID. l 22:00: Please Jason 00 check indication . Not for seizure. (Same As: CeleBREX) Vancomycin No 2001 mg: Me moria 5-05 infuse l 21:00: over 2.5 [place] 00 hours Lidocaine No Notes: Memori a [...] oria 5-04 to exceed l 22:00: 400mg/day. [place] 00 (Same As: Ultram) gabapentin No Notes: Memor ia 5-04 (Same as: l 22:00: Neurontin) Acetaminoph No Notes: Max Memoria en 5-04 acetaminop l 22:00: hen 4000 Jason 00 mg/day (4 gm/day). (Same as: Tylenol Extra Strength) Robaxin No Notes: Memoria 5-04 (Same l 22:00: as:Robaxin [place] ) Oxycodone No Notes: Memori a Hydrochlori 5-04 (Same as: l de 5 MG 21:33: Roxicodone Herm carly Oral Tablet 00 ) Beneprotein No Notes: Erwin benjamin 7 gm pkt - (Same as: l 21:30: Beneprotei Jason 00 [...] 11:01:00 CDT Phenergan No Notes: Memori a - (Same as: l 15:43: Phenergan) Dilaudid No 2 mg, Memoria 5-04 Route: l 15:43: IVP, ONCE, Dosing Weight 127.027, kg, Priority: STAT, Start date: 11/15/17 10:43:00 CDT, Stop date: 11/15/17 10:43:00 CDT Docusate No Notes: Memoria 5-04 (Same as: l 14:00: Colace) (Do Not Crush) Zinc No Notes: Memoria Sulfate - (Zinc l 14:00: sulfate capsule) - 220 [...] mg Vancomycin No 2000 mg: Me moria 5-04 infuse l 07:00: over 2.5 [place] 00 hours For adult patients only: Round [...] 0.9% 11-15 (Same as: l 06:46: BD [place] 00 Posiflush) Acetaminoph No Notes: Do M emoria en -04 not exceed l 06:46: 4 gm/day. (Same as: Tylenol) Acetaminoph No Notes: Erwin benjamin en 325 MG / 5-04 (Same as: l Hydrocodone 06:46: Lucile Kristen nn Bitartrate 00 325/5) Do 5 MG Oral not exceed Tablet 4gm/day of acetaminop hen. Reglan No Notes: Memoria 5-04 (Same as: l 04:27: Reglan) Benadryl No Notes: Memoria 5-04 (Same as: l 04:27: Benadryl) Magnesium No Notes: Memori a Sulfate 11-15 WASTE: F/P l 04:26: - Sink; E Jason 00 - Municipal Trash Bin Sodium No 1,000 mL, Memori a Chloride 04 1000 l 0.9% 04:26: ml/hr, [place] (Bolus) IV 00 Infuse Over: 1 hr, Route: IV, 1,000, Drug form: INJ, ONCE, Priority: STAT, Dosing Weight 127.273 kg, Start date: 11/14/17 23:26:00 CDT, Stop date: 11/14/17 23:26:00 CDT Zosyn No 4.5 gm, Memoria 11-15 Route: l 04:10: IVPB, [place] 00 ONCE, Dosing Weight 127.273, kg, Priority: [...] l IV 1,000 mL 03:39: ml/hr, Herm carly Infuse over: 13.3 hr, Route: IV, Dosing Weight 127.273 kg, Total Volume: 1,000, Start date: 11/14/17 22:39:00 CDT, Duration: 30 day, Stop date: 12/14/17 22:38:00 CDT, 2.36, m2 Acetaminoph No Notes: Max Memoria en 11-15 acetaminop l 02:56: hen 4000 Jason 00 mg/day (4 gm/day). (Same as: Tylenol Extra Strength) Rocephin No Notes: Memoria 11-15 (Same As: l 02:21: Rocephin). [place] 00 MEDICATION WASTE Product Size: 1000 mg Product Wasted: _0__ mg Morphine No 4 mg, Memoria 11-15 Route: l 00:05: IVP, ONCE, Jason 00 Dosing Weight 127.273, kg, Priority: STAT, [...] 17:56:00 CDT, Stop date: 11/14/17 17:56:00 CDT OXYCODONE 2016-07 Yes Take by Univ ers HCL/ACETAMI 2-20 mouth. ity of NOPHEN 10:03: [place] (PERCOCET 17 Medical ORAL) Branch dicyclomine 2016-07 Yes 20mg Take 1 Univ ers (BENTYL) 20 2-20 tablet by ity of mg tablet 00:00: mouth 4 [place] 00 (four) Medical times Branch daily. proMETHazin 2016-07 Yes 25mg Take 1 Univ ers e 25 mg 2-20 tablet by ity of tablet 00:00: mouth [place] 00 every 6 Medical (six) Branch hours as needed for Nausea and Vomiting (N/V). proMETHazin Yes 25mg Take 1 Univ ers e 25 mg 1-04 tablet by ity of tablet 00:00: mouth [place] 00 every 6 Medical (six) Branch hours as needed for Nausea and Vomiting (N/V) for up to 12 doses. Tylenol Tylenol Yes Na Gamble [address] with with as needed [facility] - Codeine #4 Codeine #4 [facility] Macrobid Macrobid Yes Na Gamble [address] with food [facility] Pantoprazol Pantoprazol Yes Na Gamble [address] e Sodium e Sodium [facility] Collagenase Collagenase Yes Na Gamble [address] [facility] applicatio [facility] n to Memoria affected l [facility] Vital Signs Vital Name Observation Time Observation Value Comments Source Systolic blood 2020-11-21 01:30:00 163 mm[Hg] Univer sity of pressure [place] [facility] Diastolic blood 2020-11-21 01:30:00 106 mm[Hg] Unive rsity of pressure [place] [facility] Heart rate 2020-11-21 01:30:00 97 /min Universi ty [facility] [place] [facility] Respiratory rate 2020-11-21 01:30:00 21 /min Univ ersity of [place] [facility] Oxygen saturation in 2020-11-21 01:30:00 97 /min University of Arterial blood by [facility] [place] [place] Pulse oximetry Branch Body weight 2020-11-20 23:27:00 136.079 kg [facility] ty [facility] [place] [facility] BMI 2020-11-20 23:27:00 60.59 kg/m2 [facility] [place] [facility] Body temperature 2020-11-20 23:27:00 36.83 Abi [facility] ersity of [place] [facility] Body height 2020-11-20 23:27:00 149.9 cm Universi ty [facility] [place] [facility] Systolic blood 2020-11-21 01:30:00 163 mm[Hg] Univer sity of pressure [place] [facility] Diastolic blood 2020-11-21 01:30:00 106 mm[Hg] Unive rsity of pressure [place] [facility] Heart rate 2020-11-21 01:30:00 97 /min [facility]i ty [facility] [place] [facility] Respiratory rate 2020-11-21 01:30:00 21 /min Univ ersity of [place] [facility] Oxygen saturation in 2020-11-21 01:30:00 97 /min University of Arterial blood by [facility] [place] [place] Pulse oximetry Branch Body weight 2020-11-20 23:27:00 136.079 kg [facility] [place] [facility] BMI 2020-11-20 23:27:00 60.59 kg/m2 [facility] [place] [facility] Body temperature 2020-11-20 23:27:00 36.83 Abi Univ ersity of [place] [facility] Body height 2020-11-20 23:27:00 149.9 cm [facility] [place] [facility] Respitory Rate 2018-05-22 17:30:00 Gerri Malcolm Systolic (mm Hg) 2018-05-22 17:30:00 Erwin Gomez Diastolic (mm Hg) 2018-05-22 17:30:00 Mem rudolph Gomez Temperature Oral (F) 2018-05-22 17:30:00 98.4 F [facility] [place] Temperature Oral (F) 2018-05-22 16:23:00 98.6 F [facility] [place] Systolic (mm Hg) 2018-05-22 16:23:00 Erwin rial Jason Diastolic (mm Hg) 2018-05-22 16:23:00 Mem orial [place] Respitory Rate 2018-05-22 14:00:00 Memori al [place] Systolic (mm Hg) 2018-05-22 14:00:00 Erwin rial Jason Diastolic (mm Hg) 2018-05-22 14:00:00 Mem orial [place] Respitory Rate 2018-05-22 13:30:00 Memori al Jason BMI Calculated 2018-05-22 10:16:00 Memori al [place] Height 2018-05-22 10:16:00 149.86 cm Memorial Jason Weight 2018-05-22 10:16:00 Memorial Jason Heart Rate 2018-05-22 10:16:00 [facility] [place] Temperature Oral (F) 2018-05-22 10:16:00 97.9 F Memorial Jason Temperature Oral (F) 2017-11-19 13:40:00 97.2 F Memorial Jason Systolic (mm Hg) 2017-11-19 13:40:00 Erwin rial [place] Diastolic (mm Hg) 2017-11-19 13:40:00 Mem orial [place] Heart Rate 2017-11-19 13:40:00 Memorial Jason Respitory Rate 2017-11-19 13:40:00 Memori al [place] Heart Rate 2017-11-19 05:24:00 [facility] [place] Systolic (mm Hg) 2017-11-19 05:24:00 Erwin rial [place] Diastolic (mm Hg) 2017-11-19 05:24:00 Mem orial Jason Respitory Rate 2017-11-19 05:24:00 Memori al [place] Temperature Oral (F) 2017-11-19 05:24:00 98.1 F [facility] [place] Respitory Rate 2017-11-19 01:15:00 Memori al Jason Systolic (mm Hg) 2017-11-19 01:15:00 Erwin rial [place] Diastolic (mm Hg) 2017-11-19 01:15:00 Mem orial Jason Heart Rate 2017-11-19 01:15:00 [facility] [place] Temperature Oral (F) 2017-11-19 01:15:00 98.1 F Memorial Jason Weight 2017-11-18 14:00:00 Memorial Jason Weight 2017-11-17 14:00:00 [facility] [place] Weight 2017-11-15 14:00:00 [facility] [place] BMI Calculated 2017-11-15 05:43:00 Memanai seo [place] Height 2017-11-15 05:43:00 162.56 cm Memorial Jason Height 2017-11-14 22:41:00 149.86 cm [facility] [place] BMI Calculated 2017-11-14 22:41:00 Memanai al [place] Procedures Procedure Date / Time Performing Clinician Source Performed CT ABDOMEN PELVIS WO 2020-11-21 00:39:40 [facility] LIPASE 2020-11-21 00:06:00 Brittany Helms [facility] COMP. METABOLIC PANEL 2020-11-21 00:06:00 [id number] CBC WITH DIFF 2020-11-21 00:06:00 Brittany Helms [facility] URINALYSIS 2020-11-21 00:00:00 Brittany Helms [facility] COVID-19 (ID NOW RAPID 2020-11-21 00:00:00 [facility] TESTING) 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 Plan of Care Planned Activity Planned Date Details Comments Source Future Scheduled 2022-07-[address] [facility] (procedure) [code = [facility] Center 86652571] Future Scheduled 2021-03-[address] [facility] 00:00:00 (Season Ended) [code = [facility] Center INFLUENZA VACCINE (Season Ended)] Future Scheduled 2020-07-[address] [facility] Test 00:00:00 (12+) [code = Medical Center DEPRESSION SCREENING (12+)] Future Scheduled 2019-10-[address] [facility] 00[facility]00 [facility] (procedure) [code = 53052862] Future Scheduled 2004 DTAP/TDAP/TD VACCINES CH I [...] 00:00:00 protein (procedure) Medical Center [code = 757261970] Future Scheduled [address] [facility] Test 00:00:00 0-64 YRS (1 of 1 - Medical C enter PPSV23) [code = PNEUMOCOCCAL VACCINE 0-64 YRS (1 of 1 - PPSV23)] Encounters Start End Encounter Admission Attending Care Care Encounter Source Date/Time Date/Time Type Type Clinicians Facility Department ID 2021-04-25 2021-04-25 Outpatient [facility] [id number] [facility] 2021-04-11 2021-04-11 Outpatient [facility] [id number] [facility] 2021-02-21 2021-02-21 Outpatient [facility] [id number] [facility] 2021-01-31 2021-01-31 Outpatient [facility] [id number] [facility] 2021-01-03 2021-01-03 Outpatient [facility] [id number] [facility] 2020-11-20 2020-11-20 Emergency [facility] [id number] 18:22:00 22:21:00 Brittany Parra [id number] [place] [id number] [place] [id number] 2020-11-20 2020-11-20 [facility] [id number] [facility] 18:22:00 22:21:00 Brittany Cassandra Parra [id number] ity [facility] 4.2.7.2.686 [facility] [id number] [address] 2020-11-20 2020-11-20 [facility] [id number] [facility] 18:22[facility]00 18:22[facility]00 [facility] 2019-03-04 Phone nullFlavo MNA [id number] [facility]oria 16:11:26 04:59:59 Message r Neurosurger 08 l y [facility] 2019-02-10 2019-02-12 Phone nullFlavo MNA [id number] [facility]oria 16:16:47 04:59:59 Message r Neurosurger 07 l y [facility] 2019-01-26 2019-01-28 Phone nullFlavo MNA [id number] 55 [facility]oria 15:52:03 04:59:59 Message r Neurosurger 06 l y [facility] 2019-01-01 2019-01-03 Phone nullFlavo MNA [id number] 55 [facility]oria 18:55:03 04:59:59 Message r Neurosurger 05 l y [facility] 2018-05-22 2018-05-22 Emergency nullFlavo [facility] [id number] [facility] 10:12:00 18:24:00 r [place] 12 [facility] 2018-02-18 2018-02-18 [facility] [id number] 11:15:00 11:15:00 [facility] [facility] 2018-01-27 2018-01-27 [facility] [id number] 11:30:00 11:30:00 [facility] 2018-01-03 2018-01-03 [facility] [id number] 15:41:00 15:41:00 [facility] 2017-12-23 2017-12-23 [facility] [id number] 15:42:00 15:42:00 [facility] ent [facility] 2017-12-17 2017-12-17 [facility] [id number] 11:00:00 11:00:00 [facility] 2017-11-14 2017-11-19 Inpatient formerly [facility] [id number] [facility] 22:40:00 17:28:[address] Results Test Description Test Time Test Comments Results Result Comments Source COVID-19 (ID NOW RAPID TESTING) 2020-11-21 01:01:33 Test Item Value Reference Range Interpretation Comme nts SARS-CoV-2 Rapid ID NOW (test code Not Detected Not Detected = 08847-5) ARPITA (test code = ARPITA) ID NOW COVID-19 Assay is an isothermal nucleic acid amplification test intended for the qualitative detection of nucleic acid from SARS-CoV-2 viral RNA in nasopharyngeal (SALES PROJECT MANAGER) specimens. It is used under Emergency Use Authorization (EUA) by FDA. The limit of detection (LOD) of the assay is 125 Genome Equivalents/mL. A positive result is indicative of the presence of SARS-CoV-2 RNA. ?Clinical correlation with patient history and other diagnostic information is necessary to determine patient infection status. A negative (Not Detected) result does not preclude SARS-CoV-2 infection. In patients with clinical symptoms and other tests that are consistent with SARS-CoV-2 infection, negative results should be treated as presumptive negative and a new specimen should be tested with alternative PCR molecular test. Invalid: Please collect a new specimen for repeat patient testing if clinically indicated. Lab Interpretation (test code = Normal 82996-6) [facility]. METABOLIC PANEL (56024)2020-11-21 01:00:33 Test Item Value Reference Range Interpretation Comments NA (test code = 140 mmol/L 135-145 9212587750) K (test code = 4.4 mmol/L 3.5-5.0 2228784423) CL (test code = 103 mmol/L 98-108 9546037869) CO2 TOTAL (test code = 28 mmol/L 23-31 7164777571) AGAP (test code = 2-16 0005317909) BUN (test code = 15 mg/dL 7-23 3252786835) GLUCOSE (test code = 85 mg/dL 70-110 4317153014) CREATININE (test code = 0.60 mg/dL 0.60-1.25 8170965842) TOTAL BILI (test code = 1.1 mg/dL 0.1-1.8 8572473013) CALCIUM (test code = 9.0 mg/dL 8.6-10.6 2046740453) T PROTEIN (test code = 7.8 g/dL 6.3-8.2 4526896960) ALBUMIN (test code = 4.0 g/dL 3.5-5.0 3356602943) ALK PHOS (test code = 166 U/L 34-122 H 9050678097) ALTv (test code = 42 U/L 5-50 1742-6) AST(SGOT) (test code = 32 U/L 13-40 1782628629) eGFR (test code = mL/min/1.73m2 4296573342) ARPITA (test code = ARPITA) Association of Glomerular Filtration Rate (GFR) and Staging of Kidney Disease* + --+ --+ ------+| GFR (mL/min/1.73 m2) ?| With Kidney Damage ?| ?Without Kidney Damage+ --------+ --------+ +| ?>90 ?| ?Stage one ?| ? Normal ?+ ---+ ---+ -------+| ?60-89 ?| ?Stage two ?| ? Decreased GFR ? + --+ --+ ------+| ?30-59 ?| ?Stage three ?| ? Stage three ? + --+ --+ ------+| ?15-29 ?| ?Stage four ? | ? Stage four ?+ ---+ ---+ -------+| ?<15 (or dialysis) ? ?| ?Stage five ? | ? Stage five ?+ ---+ ---+ -------+ *Each stage assumes the associated GFR level has been in effect for at least three months. ?Stages 1 to 5, with or without kidney disease, indicate chronic kidney disease. Notes: Determination of stages one and two (with eGFR >59mL/min/1.73 m2) requires estimation of kidney damage for at least three months as defined by structural or functional abnormalities of the kidney, manifested by either:Pathological abnormalities or Markers of kidney damage (including abnormalities in the composition of the blood or urine or abnormalities in imaging tests). Lab Interpretation Abnormal (test code = 76802-7) [facility] 01[facility]00[facility]13 Test Item Value Reference Range Interpretation Comments LIPASE (test code = 1057722841) 57 U/L 0-220 Lab Interpretation (test code = Normal 82716-7) [facility] 00:51:55 Test Item Value Reference Range Interpretation Comments APPEARANCE (test code = Turbid Clear A 7231385995) COLOR (test code = Yellow Yellow 4203479753) PH (test code = 4.8-8.0 4912088987) SP GRAVITY (test code = 1.003-1.030 5570078197) GLU U QUAL (test code = Normal Normal 1846604329) BLOOD (test code = 1+ Negative A 0915452172) KETONES (test code = 20 mg/dL Negative A 1948915691) PROTEIN (test code = 100 mg/dL Negative A 2887-8) UROBILIN (test code = 2.0 mg/dL Normal A 7801528326) BILIRUBIN (test code = Negative Negative 0183247341) NITRITE (test code = Positive Negative A 0851235972) LEUK CHAD (test code = 250/uL Negative A 2936352241) RBC/HPF (test code = See_Comment H [Autom ated message] 2698647721) The system [employer] generated this result transmit lester reference range : 0 - 3 HPF. The refe rence range was not u sed to interpret th is result as normal/abnormal . WBC/HPF (test code = >182 See_Comment H [Autom ated message] 3062718981) The system whic h generated this result transmit lester reference range : 0 - 5 HPF. The refe rence range was not u sed to interpret th is result as normal/abnormal . BACTERIA (test code = Many Negative A 2240993096) MUCOUS (test code = Moderate Negative LPF A 0820153371) WBC CLUMPS (test code = See_Comment H [Au tomated message] 0406175729) The system [employer] generated this result transmit lester reference range : <=1 HPF. The refere nce range was not u sed to interpret th is result as normal/abnormal . Lab Interpretation (test Abnormal code = 71583-4) [facility] WITH [id number] 00:46:14 Test Item Value Reference Range Interpretation Comments WBC (test code = See_Comment [Automated 6390-2) message] The sy stem which generated this result transmitted reference range : 4.20 - 10.70 10*3/?L. The reference range was not used to interpret this result as normal/abnormal . RBC (test code = See_Comment [Automated 679-8) message] The sy stem which generated this result transmitted reference range : 4.26 - 5.52 10*6/?L. The reference range was not used to interpret this result as normal/abnormal . HGB (test code = 15.9 g/dL 12.2-16.4 718-7) HCT (test code = 47.1 % 38.4-49.3 4544-3) MCV (test code = 86.6 fL 81.7-95.6 787-2) MCH (test code = 29.2 pg 26.1-32.7 785-6) MCHC (test code = 33.8 g/dL 31.2-35.0 786-4) RDW-SD (test code = 47.6 fL 38.5-51.6 66936-4) RDW-CV (test code = 15.2 % 12.1-15.4 788-0) PLT (test code = See_Comment H [Automated 777-3) message] The sy stem which generated this result transmitted reference range : 150 - 328 10*3/ ?L. The reference r boubacar was not used to interpret this result as normal/abnormal . MPV (test code = 9.4 fL 9.8-13.0 L 65655-5) NRBC/100 WBC (test See_Comment [Automat ed code = 2489766083) message] The system which generated this result transmitted reference range : 0.0 - 10.0 /100 WBCs. The refer ence range was not u sed to interpret th is result as normal/abnormal . NRBC x10^3 (test code <0.01 See_Comment [Auto mated = 4486651989) message] The s ystem which generated this result transmitted reference range : 10*3/?L. The reference range was not used to interpret this result as normal/abnormal . GRAN MAT (NEUT) % 61.3 % (test code = 770-8) IMM GRAN % (test code 0.70 % = 9798749246) LYMPH % (test code = 26.4 % 736-9) MONO % (test code = 9.9 % 5905-5) EOS % (test code = 1.3 % 713-8) BASO % (test code = 0.4 % 706-2) GRAN MAT x10^3(ANC) 6.39 10*3/uL 1.99-6.95 (test code = 8906136791) IMM GRAN x10^3 (test 0.07 10*3/uL 0.00-0.06 H code = 1468508420) LYMPH x10^3 (test code 2.75 10*3/uL 1.09-3.23 = 731-0) MONO x10^3 (test code 1.03 10*3/uL 0.36-1.02 H = 742-7) EOS x10^3 (test code = 0.14 10*3/uL 0.06-0.53 711-2) BASO x10^3 (test code 0.04 10*3/uL 0.01-0.09 = 704-7) Lab Interpretation Abnormal (test code = 93559-0) [facility] [id number] 13:03:00 Test Item Value Reference Range Interpretation Comments POC-GLUCOSE METER 140 mg/dL 70-110 H : TESTED A T [facility] 6720 (BEAKER) (test code = [place], 1538) 00030: Events Traffic Controller/Techni rose ID = [id number] for AARON COTTRELL POCT-GLUCOSE [id number] 09:15:00 Test Item Value Reference Range Interpretation Comments POC-GLUCOSE METER 142 mg/dL 70-110 H : TESTED A T [facility] 6720 (BEAKER) (test code = [facility], 153) 81187: Events Traffic Controller/Techni rose ID = [id number] for AARON COTTRELL POCT-GLUCOSE [id number] 20:56:00 Test Item Value Reference Range Interpretation Comments POC-GLUCOSE METER 134 mg/dL 70-110 H : TESTED A T [facility] 6720 (BEAKER) (test code = [facility], 1538) 48577: Events Traffic Controller/Techni rose ID = [id number] for MG LANZA POCT-GLUCOSE [id number] 16:46:00 Test Item Value Reference Range Interpretation Comments POC-GLUCOSE METER 91 mg/dL 70-110 : TESTED A T [facility] 6720 (BEAKER) (test code = [facility], 1538) 01329: Events Traffic Controller/Techni rose ID = [id number] for AARON CABRAL POCT-GLUCOSE [id number] 12:19:00 Test Item Value Reference Range Interpretation Comments POC-GLUCOSE METER 237 mg/dL 70-110 H : TESTED A T [facility] 6720 (BEAKER) (test code = [facility], [facility]8) 40852: Events Traffic Controller/Techni rose ID = [id number] for AARON COTTRELL MR, EXTREMITY, LOWER, WITHOUT CONTRAST, [id number] 09:12:00FINAL REPORT MRI of the right and [...] Garzaort Verified Date/Time: 07/29/2019 09:12:01 Reading Location: [facility] C013X Ortho Consult Reading Room MR, EXTREMITY, LOWER, WITHOUT CONTRAST, [id number] 09:12:00FINAL REPORT MRI of the right and [...] Garza Verified Date/Time: 07/29/2019 09:12:01 Reading Location: [address] Ortho Consult Reading Room POCT-GLUCOSE [id number] 08:47:00 Test Item Value Reference Range Interpretation Comments POC-GLUCOSE METER 264 mg/dL 70-110 H : TESTED A T [facility] 6720 (BEAKER) (test code = [facility], 153) 20272: Events Traffic Controller/Techni rose ID = [id number] for VERO ANDRE AARON ISLET CELL AB [id number] 07:43:00 Test Item Value Reference Range Interpretation Comments ISLET CELL AB Refer to individual AUTOVERIFICATION (test Islet Cell Ab code = 2556) and/or Islet Cell Ab Titer results. POCT-GLUCOSE [id number] 21:27:00 Test Item Value Reference Range Interpretation Comments POC-GLUCOSE METER 130 mg/dL 70-110 H : TESTED A T [facility] 6720 (BEAKER) (test code = [facility], 1538) 59241: Events Traffic Controller/Techni rose ID = [id number] for NADIRA DEL ROSARIO FERNIE BLOOD [id number] 13:00:00 Test Item Value Reference Range Interpretation Comments CULTURE (BEAKER) (test No growth in 5 days code = 1095) BLOOD [id number] 13:00:00 Test Item Value Reference Range Interpretation Comments CULTURE (BEAKER) (test No growth in 5 days code = 1095) POCT-GLUCOSE [id number] 12:57:00 Test Item Value Reference Range Interpretation Comments POC-GLUCOSE METER 138 mg/dL 70-110 H : TESTED A T [facility] 6720 (BEAKER) (test code = [facility], 1538) 69791: Events Traffic Controller/Techni rose ID = [id number] for JUAN ANTONIO PORTER POCT-GLUCOSE [id number] 08:43:00 Test Item Value Reference Range Interpretation Comments POC-GLUCOSE METER 226 mg/dL 70-110 H : [facility]) (test code = [facility], 153) 20781: Events Traffic Controller/Techni rose ID = [id number] for WI LLSPARKLE, JUAN ANTONIO POCT-GLUCOSE [id number] 21:11:00 Test Item Value Reference Range Interpretation Comments POC-GLUCOSE METER 254 mg/dL 70-110 H : Notified RN/MD: ([facility]) (test code = TESTED AT [facility] 6720 1538) [facility], 46345: Events Traffic Controller/Techni rose ID = [id number] for FERNIE APARICIO POCT-GLUCOSE [id number] 21:02:00 Test Item Value Reference Range Interpretation Comments POC-GLUCOSE METER 177 mg/dL 70-110 H : [facility] ([facility]) (test code = [facility], 153) 53420: Events Traffic Controller/Techni rose ID = [id number] for [place] LLSPARKLE, JUAN ANTONIO POCT-GLUCOSE [id number] 12:31:00 Test Item Value Reference Range Interpretation Comments POC-GLUCOSE METER 215 mg/dL 70-110 H : [facility]) (test code = [facility], 153) 68064: Events Traffic Controller/Techni rose ID = [id number] for SARAH CATESIS, JUAN ANTONIO WOUND CULTURE + GRAM [id number] 10:10:00 Test Item Value Reference Interpretation Comments Range CULTURE ([facility]) PROTEUS MIRABILIS A 1+ Pro [...] gram negative (BEAKER) (test code = rods 295629) GRAM STAIN RESULT 2+ gram positive (BEAKER) (test code = rods 861191) GRAM STAIN RESULT <1+ gram negative (BEAKER) (test code = coccobacilli 908701) GRAM STAIN RESULT 2+ gram positive (BEAKER) (test code = cocci in pairs 174136) POCT-GLUCOSE [id number] 08:52:00 Test Item Value Reference Range Interpretation Comments POC-GLUCOSE METER 209 mg/dL 70-110 H : TESTED A T [facility] 6720 (BEAKER) (test code = [facility], 153) 80400: Events Traffic Controller/Techni rose ID = [id number] for JUAN ANTONIO PORTER POCT-GLUCOSE [id number] 21:26:00 Test Item Value Reference Range Interpretation Comments POC-GLUCOSE METER 255 mg/dL 70-110 H : TESTED A T [facility] 6720 (BEAKER) (test code = [facility], 1538) 58972: Events Traffic Controller/Techni rose ID = [id number] for CR ISWELL, TIA POCT-GLUCOSE [id number] 17:34:00 Test Item Value Reference Range Interpretation Comments POC-GLUCOSE METER 227 mg/dL 70-110 H : TESTED A T [facility] 6720 (BEAKER) (test code = [facility], 153) 46054: Events Traffic Controller/Techni rose ID = [id number] for CHAVEZ NNY, LETI POCT-GLUCOSE [id number] 11:28:00 Test Item Value Reference Range Interpretation Comments POC-GLUCOSE METER 282 mg/dL 70-110 H : TESTED A T [facility] 6720 (BEAKER) (test code = [facility], 153) 94678: Events Traffic Controller/Techni rose ID = [id number] for CHAVEZ NNY, LETI POCT-GLUCOSE [id number] 08:19:00 Test Item Value Reference Range Interpretation Comments POC-GLUCOSE METER 329 mg/dL 70-110 H : TESTED A T [facility] 6720 (BEAKER) (test code = [facility], 153) 37534: Events Traffic Controller/Techni rose ID = [id number] for AARON COTTRELL POCT-GLUCOSE [id number] 21:32:00 Test Item Value Reference Range Interpretation Comments POC-GLUCOSE METER 275 mg/dL 70-110 H : TESTED A T [facility] 6720 (BEAKER) (test code = [facility], 153) 80659: Events Traffic Controller/Techni rose ID = [id number] for CR ISWELL, TIA POCT-GLUCOSE [id number] 17:47:00 Test Item Value Reference Range Interpretation Comments POC-GLUCOSE METER 304 mg/dL 70-110 H : TESTED A T [facility] 6720 (BEAKER) (test code = [facility], 1538) 00827: Events Traffic Controller/Techni rsoe ID = [id number] for ERIN ARIZMENDI URINE [id number] 15:21:00 Test Item Value Reference Range Interpretation [...] Tobramycin (test code R = 25) POCT-GLUCOSE [id number] 12:16:00 Test Item Value Reference Range Interpretation Comments POC-GLUCOSE METER 337 mg/dL 70-110 H : TESTED A T [facility] 6720 (BEAKER) (test code = [facility] Damaso [facility], 1538) 24196: Events Traffic Controller/Techni rose ID = [id number] for ERIN ARIZMENDI BASIC METABOLIC [id number] 10:39:00 Test Item Value Reference Range Interpretation [...] S NOT APPLICABLE FOR DIALYSIS PATIEN TS. Events Traffic Controller ID - JANET FPOCT-GLUCOSE [id number] 08:29:00 Test Item Value Reference Range Interpretation Comments POC-GLUCOSE METER 395 mg/dL 70-110 H : TESTED A T [facility] 6720 (BEAKER) (test code = [place], 1538) 95001: Events Traffic Controller/Techni rose ID = [id number] for ERIN ARIZMENDI CBC W/PLT COUNT & AUTO [id number] 06:40:00 Test Item Value Reference Range Interpretation [...] PERCENT (BEAKER) (test code = 2801) POCT-GLUCOSE [id number] 19:55:00 Test Item Value Reference Range Interpretation Comments POC-GLUCOSE METER 369 mg/dL 70-110 H : TESTED A T [facility] 6720 (BEAKER) (test code = [facility], 153) 88249: Events Traffic Controller/Techni rose ID = [id number] for MG LANZA POCT-GLUCOSE [id number] 16:45:00 Test Item Value Reference Range Interpretation Comments POC-GLUCOSE METER 272 mg/dL 70-110 H : TESTED A T [facility] 6720 (BEAKER) (test code = [facility], 1538) 40850: Events Traffic Controller/Techni rose ID = [id number] for FRIEDA PALOMINO POCT-GLUCOSE [id number] 11:40:00 Test Item Value Reference Range Interpretation Comments POC-GLUCOSE METER 277 mg/dL 70-110 H : TESTED A T [facility] 6720 (BEAKER) (test code = [facility], 153) 39612: Events Traffic Controller/Techni rose ID = [id number] for KRISTOPHER HARPER, FRIEDA BASIC METABOLIC [id number] 10:22:00 Test Item Value Reference Range Interpretation [...] S NOT APPLICABLE FOR DIALYSIS PATIEN TS. Events Traffic Controller ID - NTPLIPID [id number] 10:17:00 Test Item Value Reference Range Interpretation [...] Borderline 130-159 High 160-189 Very High >=190 Events Traffic Controller ID - NTP POCT-GLUCOSE [id number] 08:28:00 Test Item Value Reference Range Interpretation Comments POC-GLUCOSE METER 388 mg/dL 70-110 H : TESTED A T [facility] 6720 (BEAKER) (test code = [place], 1538) 12731: Events Traffic Controller/Techni rose ID = [id number] for AARON COTTRELL HEMOGLOBIN [id number] 07:54:00 Test Item Value Reference Range Interpretation Comments HEMOGLOBIN A1C (BEAKER) (test code = 10.4 % 4.3-6.1 H 368) CBC W/PLT COUNT & AUTO [id number] 05:56:00 Test Item Value Reference Range Interpretation [...] 417) IMMATURE GRANULOCYTES-RELATIVE 1 % 0-1 PERCENT ([facility]) (test code = 2801) POCT-GLUCOSE [id number] 23:47:00 Test Item Value Reference Range Interpretation Comments POC-GLUCOSE METER 359 mg/dL 70-110 H : Notified RN/MD: ([facility]) (test code = TESTED AT [place] [address] 153) [facility], 12290: Events Traffic Controller/Techni rose ID = [id number] for LATOLIVERRIDYARI ABRAHAMN ICE POCT-GLUCOSE [id number] 21:13:00 Test Item Value Reference Range Interpretation Comments POC-GLUCOSE METER 315 mg/dL 70-110 H : [facility] ([facility]) (test code = [facility], 153) 73803: Events Traffic Controller/Techni rose ID = [id number] for Sm ith, Ana POCT-GLUCOSE [id number] 21:13:00 Test Item Value Reference Range Interpretation Comments POC-GLUCOSE METER 331 mg/dL 70-110 H : [facility] ([facility]) (test code = [facility], 153) 18117: Events Traffic Controller/Techni rose ID = [id number] for RO SARAHI, LINDSAYECA POCT-GLUCOSE [id number] 10:30:00 Test Item Value Reference Range Interpretation Comments POC-GLUCOSE METER 341 mg/dL 70-110 H : TESTED A T [facility] 6720 ([facility]) (test code = [facility], [facility]) 41857: Events Traffic Controller/Techni rose ID = [id number] for Sm ith, Ana CBC W/PLT COUNT & AUTO [id number] 08:48:00 Test Item Value Reference Range Interpretation Comments WHITE BLOOD CELL COUNT ([facility]) 6.7 K/ L 3.5-10.5 (test code = 775) RED BLOOD CELL COUNT ([facility]) 5.28 M/ L 4.63-6.08 (test code = 761) HEMOGLOBIN ([facility]) (test code = 14.6 GM/DL 13.7-17.5 410) HEMATOCRIT ([facility]) (test code = 44.9 % 40.1-51.0 411) [...] (BEAKER) (test code = Present 1371) HEMOGLOBIN [id number] 06:39:00 Test Item Value Reference Range Interpretation Comments HEMOGLOBIN A1C (BEAKER) (test code = 10.5 % 4.3-6.1 H 368) LIPID [id number] 04:57:00 Test Item Value Reference Range Interpretation [...] Very High >=190 Specimen moderately lipemicBASIC METABOLIC [id number] 04:56:00 Test Item Value Reference Range Interpretation [...] NOT APPLICABLE FOR DIALYSIS PATIEN TS. POCT-GLUCOSE [id number] 21:53:00 Test Item Value Reference Range Interpretation Comments POC-GLUCOSE METER > mg/dL 70-110 HH : Notified RN/MD: TESTED (BEAKER) (test code = AT [facility] [address] [facility] 1538) [facility], [address]: Events Traffic Controller/Techni rose ID = [id number] for NEHEMIAS IS, DESIRAE U/S, ABDOMINAL, [id number] 19:54:00Reason for exam:->Evaluation of STULL INSTALLER shunt and for possible cyst or pseudocyst [...] CT scan would bemore sensitive. Signed: Solo Santoyoort Verified Date/Time: 07/22/2019 19:54:10 Reading Location: [address] Consult Reading Room POCT-GLUCOSE [id number] 19:34:00 Test Item Value Reference Range Interpretation Comments POC-GLUCOSE METER 474 mg/dL 70-110 HH : Notified RN/MD: (BEAKER) (test code = TESTED AT [place] [address] 1538) [facility], [address]: Events Traffic Controller/Techni rsoe ID = [id number] for MARILYNN MAO URINALYSIS W/ REFLEX URINE [id number] 17:48:00 Test Item Value Reference Range Interpretation [...] = Moderate 517) SOURCE(BEAKER) (test code = 3438) CBC W/PLT COUNT & AUTO [id number] 17:38:00 Test Item Value Reference Range Interpretation [...] 3438) Received comment: User comments: Slide comments:POCT-GLUCOSE [id number] 16:27:00 Test Item Value Reference Range Interpretation Comments POC-GLUCOSE METER 424 mg/dL 70-110 HH : Notified RN/MD: (FELICIANO) (test code = TESTED AT [facility] 67[address] 1538) [facility], [address]: Events Traffic Controller/Techni rose ID = [id number] for [place] MARILYNN EPSTEIN CT, BRAIN, WITHOUT [id number] 15:31:00FINAL REPORT CT, BRAIN, WITHOUT CONTRAST CLINICAL [...] MDReport Verified Date/Time: 07/22/2019 15:31:08 Reading Location: [address] Neuro Reading Room RAD, SHUNT [id number] 15:13:00Reason for exam:->concern for VPS malfunction FINAL [...] of the catheter appear contiguous. Signed: Raina Buchananeport Verified Date/Time: 07/22/2019 15:13:54 Reading Location: [facility] Reading Room POCT-GLUCOSE METER 2019-07-22 11:38:00 Test Item Value Reference Range Interpretation Comments POC-GLUCOSE METER 394 mg/dL 70-110 H : TESTED A T [facility] [address] [facility] (test code = LIZBETH Petit [facility], 1538) [address]: Events Traffic Controller/Techni rose ID = [id number] for MARILYNN MAO HEMOGLOBIN [id number] 09:15:00 Test Item Value Reference Range Interpretation Comments HEMOGLOBIN A1C (BEAKER) (test code = 10.4 % 4.3-6.1 H 368) TSH/FREE T4 IF [id number] 07:54:00 Test Item Value Reference Range Interpretation Comments THYROID STIMULATING HORMONE 1.40 uIU/mL 0.35-4.94 (BEAKER) (test code = 772) POCT-GLUCOSE [id number] 07:48:00 Test Item Value Reference Range Interpretation Comments POC-GLUCOSE METER > mg/dL 70-110 HH : Notified RN/MD: TESTED (BEAKER) (test code = AT [facility] [address] [facility] 1538) [facility], [address]: Events Traffic Controller/Techni rose ID = [id number] for MARILYNN SMITH BASIC METABOLIC [id number] 07:44:00 Test Item Value Reference Range Interpretation [...] NOT APPLICABLE FOR DIALYSIS PATIEN TS. LIPID [id number] 07:34:00 Test Item Value Reference Range Interpretation [...] H : TESTED A T [facility] 6720 (BEBASHIR) (test code = LIZBETH Petit [facility], 1538) [address]: Events Traffic Controller/Techni rose ID = [id number] for CHERYLE LINDA RAD, FOOT, 2 VIEWS, [id number] 22:28:00Reason for exam:->osteomyletitis FINAL REPORT TECHNIQUE: Two [...] osteomyelitis, recommend MRI with contrast. Signed: Matias Salinaseport Verified Date/Time: 07/21/2019 22:28:25 Reading Location: [facility] C013W Consult Reading Room RAD, FOOT, 2 VIEWS, [id number] 22:28:00Reason for exam:->osteomyletitsFINAL REPORT TECHNIQUE: Two views [...] MDReport Verified Date/Time: 07/21/2019 22:28:25 Reading Location: [facility] C013W Consult Reading Room POCT-GLUCOSE METER 2019-07-21 21:04:00 Test Item Value Reference Range Interpretation Comments POC-GLUCOSE METER 430 mg/dL 70-110 HH : Notified RN/MD: (FELICIANO) (test code = TESTED AT [facility] 6720 1538) [facility], [address]: Events Traffic Controller/Techni rose ID = [id number] for SO OJECARLYE URINE AND [id number] 16:48:00Negative *NA*(05/22/18 10:48 AM)[facility] [id number] 16:48:00Negative *NA*(05/22/18 10:48 AM)[facility] [id number] 16:48:00Trace *ABN*(05/22/18 10:48 AM)[facility] [id number] 16:48:000.2[facility] STOOL 2018-05-22 16:48:00Large *ABN*(05/22/18 10:48 AM)[facility] STOOL 2018-05-22 16:48:00Negative (05/22/18 10:48 AM)[facility] STOOL 2018-05-22 16:48:00Negative (05/22/18 10:48 AM)[facility] STOOL 2018-05-22 16:48:00 Test Item Value Reference Range Interpretation Comments UA pH (test code = UA pH) 7.0 1 5.0-8.0 [facility] [id number] 16:48:00 Test Item Value Reference Range Interpretation Comments UA Spec Grav (test code = UA Spec 1.015 1 Grav) [facility] [id number] 16:48:00Yellow *NA*(05/22/18 10:48 AM) [facility] [id number] 16:48:00Clear (05/22/18 10:48 AM) [facility] [id number] 16:48:00None Seen (05/22/18 10:48 AM) [facility]annERTAPENEM:SUSC:PT:ISOLATE:ORDQN:[id number] 16:48:00Proteus mirabilisMemorial HermannURINE AND [id number] 16:48:00Negative (05/22/18 10:48 AM)[facility] HermannBLOOD BANK [id number] 11:57:00Negative (05/22/18 5:57 AM)[facility] PuohbwdDPNFVVVLYU7309-29-41 11:57:00 Test Item Value Reference Range Interpretation Comments PTT (test code = PTT) 33.4 s 22.9-35.8 [facility] IuomxnvTDOIJQPXGD6204-64-86 11:57:00 Test Item Value Reference Range Interpretation Comments PT (test code = PT) 13.7 s 12.0-14.7 [facility] GfekxkwQQSEOJHZZX6811-89-77 11:57:00 Test Item Value Reference Range Interpretation Comments INR (test code = INR) 1.05 1 0.85-1.17 [facility]annCHEM BQXYT7462-91-04 10:50:76677Dghyugho HermannCHEM PANEL 2018-05-22 10:50:019.4[facility] HermannCHEM OCQMC0732-42-09 10:50:0128[facility]annCHEM BCWRL9333-83-60 10:50:0114[facility]annCHEM AOMFE7856-06-55 10:50:0189[facility]annCHEM ITDMH5720-15-33 10:50:79879Sgnvshuy HermannCHEM HLDEM7604-80-30 10:50:014.2[facility]annCHEM CLZSH0163-82-17 10:50:49486 [facility] GCBFE6810-49-31 10:50:010.85[facility] HermannCHEM PANEL 2018-05-22 10:50:019.2[facility] FurlwhcPGNNKMFVZV3276-23-65 10:50:01 Test Item Value Reference Range Interpretation Comments ACT (TEG) Rapid (test code = ACT (TEG) 136 s 86-118 Rapid) [facility] HospitalQasouxhTZTIKVKAAO2676-97-91 10:50:01 Test Item Value Reference Range Interpretation Comments Split Point Rapid (test code = Split 0.6 min Point Rapid) [facility] HospitalFrfogadVBGPGDBJZR3633-25-88 10:50:01 Test Item Value Reference Range Interpretation Comments R-time Rapid (test code = R-time 0.9 min 0.4-0.7 Rapid) [facility] HospitalCtrwuboQKCPGTEAYU5027-71-97 10:50:01 Test Item Value Reference Range Interpretation Comments K-time Rapid (test code = K-time 1.4 min 0.6-2.3 Rapid) [facility] HospitalJdfalurSDZITMPMJU3687-56-24 10:50:01 Test Item Value Reference Range Interpretation Comments Angle Rapid (test code = Angle 71 degrees 64-80 Rapid) [facility] HospitalSwpnxcnZBMJCCMDND7236-96-86 10:50:0112.7[facility] TylerHEMATOLOGY 2018-05-22 10:50:01 Test Item Value Reference Range Interpretation Comments Max Amplitude Rapid (test code = Max 72 mm 52-71 Amplitude Rapid) [facility] HospitalTqvwpirVMLPUITNDQ5798-43-19 10:50:010.1MS[facility] CenterHE[facility]OLOGY 2018-05-22 10:50:62638JoayjvbkAsc[facility] AustinYfbytsmZINMOBPPCM9402-89-86 10:50:017.8MetnriUT Health North Campus TylerPuxrpnsNGLSQAPOXR2475-09-77 10:50:01 Test Item Value Reference Range Interpretation Comments MCH (test code = MCH) 27.4 pg 27.0-31.0 [facility] HospitalXjirkzoXSNFPGJUKF9631-63-73 10:50:0180.7[facility]annHEMATOLOGY 2018-05-22 10:50:0134.0[facility] GdvibiuAPPFEQZGYG0931-32-02 10:50:0118.9[facility] UgkbfziLFTPFNUHYJ4769-25-21 10:50:0143.3[facility] FfnhsnfQSDUSHZUJM5098-22-50 10:50:019.3[facility] DxdoxxiLBWQVQSAFB1760-94-26 10:50:0114.7[facility] GLTLSJVYGO6392-30-01 10:50:015.36[facility] DayoqkrXDGTIDINIP5328-53-13 10:50:01 0.2[facility] AsiqaaqSOTWAWREMS4157-88-32 10:50:010.1[facility]annHEMATOLOGY 2018-05-22 10:50:011.8[facility] UeumxykWJGZZOQSNQ9987-52-15 10:50:010.9[facility] CcbvfobZDLLGMEBOE0737-41-53 10:50:016.3[facility] XarmbgqUSVUGJBIFE6188-67-53 10:50:012.0[facility] DthkdrxVDPLUPWIGE1094-16-94 10:50:0167.4[facility] MKGVQNRLQR9402-19-66 10:50:0119.9[facility] WhfnywjCJKFARQFSM5407-05-19 10:50:01 1.0[facility] EvraumlVTRTXEZIPK4773-40-46 10:50:019.7[facility] HermannCHEM PANEL 2017-11-19 05:42:00 Test Item Value Reference Range Interpretation Comments B/C Ratio (test code = B/C Ratio) 17 1 6-25 [facility]annCHEM NGVPJ3155-29-64 05:42:004.3[facility] HermannCHEM PANEL 2017-11-19 05:42:00 Test Item Value Reference Range Interpretation Comments A/G Ratio (test code = A/G Ratio) 0.7 1 0.7-1.6 [facility]annCHEM SBKYN8026-60-47 05:42:0014.4[facility] HermannCHEM PANEL 2017-11-19 05:42:07609Mskecwsh HermannCHEM SWTXG1845-30-94 05:42:0076[facility] HermannCHEM CRZJP7598-31-61 05:42:0035[facility]annCHEM YHGUV5518-84-90 05:42:002.8[facility] HermannCHEM LRJHC8922-33-44 05:42:007.1[facility] HermannCHEM JBQID5853-27-95 05:42:008.7[facility] HermannCHEM ANONI8477-75-07 05:42:0018 [facility]annCHEM ERUSA2905-00-45 05:42:000.3[facility] HermannCHEM PANEL 2017-11-19 05:42:004.4[facility] HermannCHEM SCEUV5019-30-58 05:42:31788Rwlsezej HermannCHEM COVCQ2895-28-46 05:42:0023[facility] HermannCHEM PIRNQ7392-81-98 05:42:80329Ifvsiypv HermannCHEM AQIJE6745-04-28 05:42:001.01[facility] HermannCHEM HDALN7801-07-48 05:42:0017[facility] HermannCHEM WWSXY3244-08-55 05:42:68130 [facility] EnrnsxeAJSWZXYIXB4889-36-65 05:42:000.6[facility] HermannHEMATOLOGY 2017-11-19 05:42:004.8[facility] PdubatjKCYBZQZFUF9875-98-56 05:42:000.7[facility] EzqqsorBIZQVLXORX2077-18-74 05:42:001.9[facility] CnxtkbqUOKSOHOIPU0209-53-73 05:42:009.4[facility] PknewnmSJDHXUDKZF4692-18-73 05:42:000.2[facility] AGCKQMAXFT4645-58-58 05:42:002.9[facility] RnizdopJXNOKJOPTM7127-40-82 05:42:00 62.2[facility] DzivyteVLJDGBFDDS3712-49-35 05:42:0024.9[facility] HermannHEMATOLOGY 2017-11-19 05:42:00 Test Item Value Reference Range Interpretation Comments MCH (test code = MCH) 27.5 pg 27.0-31.0 [facility] NkfnvbxQSRDKAIPGS3171-14-37 05:42:0085.3[facility] HermannHEMATOLOGY 2017-11-19 05:42:0043.9[facility] HsjbxneTASIZNUGCB6145-53-49 05:42:0014.2[facility] NmysmqoAIAHWTKPYE6371-31-72 05:42:007.7[facility] GuqrvddDDFZCFBHOZ2080-06-40 05:42:005.15[facility] BadbojpWEOSAULKNG8582-15-00 05:42:008.4[facility] EZKFUEXVHH3585-31-59 05:42:0032.3[facility] NdlhpkwZROGSPDIUU4361-35-69 05:42:00 17.3[facility] KqyytpkIIGCZRYEJR4744-44-38 05:42:22248Irxwvyef HermannCHEM PANEL 2017-11-18 09:36:004.4[facility] HermannCHEM AGHOF2248-43-26 09:36:00 Test Item Value Reference Range Interpretation Comments A/G Ratio (test code = A/G Ratio) 0.6 1 0.7-1.6 [facility]annCHEM ZQQRQ8542-50-90 09:36:00 Test Item Value Reference Range Interpretation Comments B/C Ratio (test code = B/C Ratio) 17 1 6-25 [facility]annCHEM HSCJD9965-97-56 09:36:0011.3[facility] HermannCHEM PANEL 2017-11-18 09:36:37068Amjwsoib HermannCHEM PQZRE2421-70-05 09:36:000.84[facility] HermannCHEM MMYDT6502-71-28 09:36:40244Yksgjgwd HermannCHEM KBDHL4168-44-82 09:36:0099[facility] HermannCHEM ZLWQE2592-03-38 09:36:0014[facility] HermannCHEM ZLBSH3222-77-65 09:36:0079[facility] HermannCHEM CNAYP6955-36-16 09:36:000.3 [facility]annCHEM JOBWL0260-39-07 09:36:0014[facility] HermannCHEM PANEL 2017-11-18 09:36:0043[facility] HermannCHEM OIEYY3357-51-30 09:36:007.1[facility] HermannCHEM UZVHA3755-18-60 09:36:002.7[facility] HermannCHEM OBAWO5785-68-29 09:36:009.2[facility] HermannCHEM UFCSP9148-91-88 09:36:0021[facility] HermannCHEM QKMOH9798-74-76 09:36:004.3[facility] HermannCHEM UBTPJ2744-55-34 09:36:55667 [facility] IctrzxgBRWLGOHAOS3069-25-80 09:36:0032.5[facility] HermannHEMATOLOGY 2017-11-18 09:36:0017.5[facility] WqrtxikRXHTEYCGVP6523-36-19 09:36:52161Qcbzajyr VfaqlgrMGWPOHKDDE1134-02-10 09:36:008.5[facility] GwaaaevUGABZTAYYD0055-06-80 09:36:006.6[facility] TpobyqzRBKVJNFYZG4138-06-85 09:36:005.17[facility] VGUZUZYTYS3886-34-89 09:36:0086.1[facility] LakjsdoDRHAEYWNWW1977-91-18 09:36:00 44.5[facility] OpngdbgMUHVKTENHV9204-46-49 09:36:00 Test Item Value Reference Range Interpretation Comments MCH (test code = MCH) 28.0 pg 27.0-31.0 [facility] FglfwhmIOQGWGITKZ7204-16-92 09:36:0014.5[facility] HermannHEMATOLOGY 2017-11-18 09:36:001.7[facility] GrggcodSMUPWRQLJE4490-68-52 09:36:000.7[facility] HobidhsYLCHTPJQAG9121-11-69 09:36:000.2[facility] EwfgietXEHHEYYBQQ0985-43-83 09:36:0026.1[facility] WvmqxisJZCIISFZJR7130-56-86 09:36:0059.3[facility] HBBWTUQEZS2525-71-47 09:36:000.8[facility] BlwwmndXABSUVONCI7056-73-89 09:36:00 10.5[facility] ZgytesxAPJJPJHPGB9200-55-42 09:36:003.3[facility] HermannHEMATOLOGY 2017-11-18 09:36:003.9[facility] TjsftqoQVGDQSLHRJ7735-00-01 21:02:009.1[facility] HermannCHEM NQWPE2833-43-51 07:07:0074[facility] HermannCHEM CWJDM6151-18-59 07:07:0012[facility]annCHEM XXLCX4950-64-15 07:07:000.75[facility] HermannCHEM WUBXZ0640-86-74 07:07:66823Hgufegdw HermannCHEM KIGYY5993-95-34 07:07:002.9 [facility]annCHEM TZWHV4095-50-52 07:07:004.4[facility] HermannCHEM PANEL 2017-11-17 07:07:00 Test Item Value Reference Range Interpretation Comments A/G Ratio (test code = A/G Ratio) 0.7 1 0.7-1.6 [facility]annCHEM OQCVJ1810-97-59 07:07:000.4[facility] HermannCHEM PANEL 2017-11-17 07:07:0071[facility]annCHEM CZSJA4598-04-93 07:07:0015[facility]annCHEM BICLY8473-85-84 07:07:0028[facility]annCHEM BSHWM5461-96-38 07:07:004.4[facility] HermannCHEM GYSFC3644-84-80 07:07:96319Ypssfnxo HermannCHEM UQYHP9641-84-63 07:07:0025[facility]annCHEM ECXAS4345-51-87 07:07:65725 [facility]annCHEM TQSCN1023-73-45 07:07:00 Test Item Value Reference Range Interpretation Comments B/C Ratio (test code = B/C Ratio) 16 1 6-25 [facility]annCHEM JBAJU7852-17-21 07:07:008.7[facility] HermannCHEM PANEL 2017-11-17 07:07:0012.4[facility] HermannCHEM WIYCG3617-58-36 07:07:007.3[facility] LzrbxohFNJXITUFAZ5824-91-17 07:07:68219Ogwbipah AqicufrGBJOZCJVAS2882-08-59 07:07:008.7[facility] PcpwiyxECQSVISRAC8224-67-96 07:07:006.9[facility] OWTRLPORGH1355-66-93 07:07:005.30[facility] RpvklykDXIEMKUTAK9802-19-18 07:07:00 32.8[facility] OvmbuikEDBMDIXHEZ3774-43-04 07:07:00 Test Item Value Reference Range Interpretation Comments MCH (test code = MCH) 27.9 pg 27.0-31.0 [facility] NfmzfmqTYBPGFJTCX8181-80-82 07:07:0014.8[facility] HermannHEMATOLOGY 2017-11-17 07:07:0085.0[facility] PswjaqbIYODCCLOSR0277-63-38 07:07:0045.1[facility] YbfcgasXRZGDCFJXV8091-14-85 07:07:0017.5[facility] KvndkriWDIJYTCFDH7352-28-81 07:07:000.2[facility] DomgvvaMWCZLJJIUK8703-65-27 07:07:002.0[facility] IXCMSWNYPC8510-96-73 07:07:000.7[facility] PmvgaxiZNILDSVMQM3494-66-57 07:07:002.4 [facility] HydxutwKNZTDRYEGM3317-92-29 07:07:000.6[facility] HermannHEMATOLOGY 2017-11-17 07:07:004.0[facility] XmyhqyoBLJJKTPDWR3062-96-69 07:07:0010.4[facility] SkgfmexPZXAABOBDW8551-73-20 07:07:00Normal (11/17/17 2:07 AM)[facility] VQEKCKSTSD9554-83-32 07:07:0058.1[facility] AkeoeufNCYAPXPKLZ7417-66-02 07:07:00 Normal (11/17/17 2:07 AM)[facility] EworubsCLVUXPTNLK4323-30-39 07:07:0028.5[facility] PqlklpmWEGGLPNSIH6386-89-90 16:07:000.1[facility] HuhqbdvPFDQNNYJIV1580-43-25 16:07:00Moderate *ABN*(11/16/17 11:07 AM)[facility] ZaelzypXEKGEPCGEJ4658-42-72 06:43:0022.3[facility] HermannCHEM DPEAZ5033-13-98 11:45:002.3[facility] HermannCHEM ILMQP8804-06-57 11:45:003.5[facility] DdwwxceJHPEKTYACU6644-68-55 11:45:00 Test Item Value Reference Range Interpretation Comments PT (test code = PT) 14.0 s 12.0-14.7 [facility] WzjjgoiQXVURKSPBO8436-04-25 11:45:00 Test Item Value Reference Range Interpretation Comments PTT (test code = PTT) 37.6 s 22.9-35.8 [facility] NkbmcgiELIRRHOZOC6307-85-60 11:45:00 Test Item Value Reference Range Interpretation Comments INR (test code = INR) 1.08 1 0.85-1.17 [facility] LfmopvpXKLHKMXFCB1580-55-98 11:45:0013.1[facility] HermannIMMUNOLOGY 2017-11-15 11:45:0025.2[facility] HermannCHEM SOBMN2557-60-00 03:06:000.9[facility] HnokddgDCRQDCMZWV5498-77-66 03:06:005[facility] QsbaiwmFQZZQJVTJG7208-14-19 03:06:0015.8[facility] NqmealoQDLBWUEQUT9412-77-55 00:44:00 Test Item Value Reference Range Interpretation Comments PT (test code = PT) 13.0 s 12.0-14.7 [facility] AftaoxfEAFZWKSOVE9844-16-27 00:44:00 Test Item Value Reference Range Interpretation Comments INR (test code = INR) 0.98 1 0.85-1.17 [facility] VvbjdjzIAHRQAXBAN1174-88-29 00:44:00 Test Item Value Reference Range Interpretation Comments PTT (test code = PTT) 33.2 s 22.9-35.8 [facility] VDCKSIE0878-99-55 23:51:00Negative (11/14/17 6:51 PM) [facility] JBGEG3979-55-73 23:35:000.2[facility] AND RMSVG1793-06-77 23:35:00Negative (11/14/17 6:35 PM)[facility] STOOL [...] Spec 1.020 1 Grav) [facility] WQDDR5592-79-18 23:35:00 Test Item Value Reference Range Interpretation Comments UA pH (test code = UA pH) 6.0 1 5.0-8.0 [facility] KQTMP4230-13-04 23:35:00Yellow *NA*(11/14/17 6:35 PM) [facility] PWDPW0301-85-21 23:35:00Trace *ABN*(11/14/17 6:35 PM) [facility] BGYKX1668-38-93 23:35:00Slight Cloudy (11/14/17 6:35 PM) [facility] OSWFN3273-51-78 23:35:000-2 (11/14/17 6:35 PM)[facility] JnqaarmUXXUWDTNCE8545-87-74 23:20:000.1[facility] OaaxoicFXIGRNOXBD1008-40-10 23:20:00Normal (11/14/17 6:20 PM)[facility] HermannBLOOD AKZLFQE2802-28-08 16:22:00 Test Item Value Reference Range Interpretation Comments CULTURE (BEAKER) (test No growth in 5 days code = 1095) BLOOD FVDTRSP2312-75-02 16:22:00 Test Item Value Reference Range Interpretation [...] Normal 762) CBC W/PLT COUNT & AUTO IKGFXHJREFBQ7422-17-52 22:28:00 Test Item Value Reference Range Interpretation [...] 0.00-0.20 (test code = 417) 0.000.520.000.000.000.00BASIC METABOLIC UHVPI4854-32-50 11:11:00 Test Item Value Reference Range Interpretation [...] NOT APPLICABLE FOR DIALYSIS PATIEN TS. URINE LKDLQQI4192-19-84 09:56:00 Test Item Value Reference Range Interpretation Comments CULTURE (BEAKER) (test <10,000 col/mL skin code = 1095) marilee COMPREHENSIVE METABOLIC FZWYG0906-88-97 08:49:00 Test Item Value Reference Range Interpretation [...] PATIEN TS. CBC W/PLT COUNT & AUTO QYOGQJNDUWKW6345-04-92 08:46:00 Test Item Value Reference Range Interpretation [...] 0.00-0.20 (test code = 417) 0.00URINALYSIS W/ NGZSYRRNMTA7750-96-88 20:36:00 Test Item Value Reference Range Interpretation [...] SOURCE(BEAKER) (test code = 2795) BASIC METABOLIC AUQQT5062-22-51 17:00:00 Test Item Value Reference Range Interpretation [...] Specimen slightly ictericCBC W/PLT COUNT & AUTO ZHCHCJARSNRG9696-90-61 12:18:00 Test Item Value Reference Range Interpretation [...]
[2021-06-05] MEDS ORDERED: NA CHLORIDE 0.9% 1,000 ML ONE (16:59)
[2021-06-05] MEDS ORDERED: HYDROMORPHONE HCL 1 MG/ML INJ ONE ×3 (17:20→22:14)
[2021-06-05] MEDS ORDERED: PROMETHAZINE INJ 25 MG/ML AMP ONE ×3 (17:20→22:14)
[2021-06-05 18:33] LABS: Absolute Lymphocytes (CBC) 0.9 K/uL (0.7-4.9); Basophils % 0.2 % (0-1.3); Hematocrit 20.1 % (39.6-49.0); MPV 7.4 fL (7.6-11.3); RBC Red Blood Cell Count 2.25 M/uL (4.33-5.43)
--- NOTE | 2021-06-05 19:09 | RAD REPORT ---
EXAM DESCRIPTION: CT - Abdomen Pelvis Wo Contrast - 06/05/2021 6:40 pm CLINICAL HISTORY: Abdominal pain COMPARISON: May 16, 2021 TECHNIQUE: Computed axial tomography of the abdomen and pelvis was obtained. IV and oral contrast we re not requested. All CT scans are performed using dose optimization technique as appropriate and may include automated exposure control or mA/KV adjustment according to patient size. FINDINGS: The evaluation of solid organs, vessels, appendix and bowel is limited secondary to the l ack of contrast administration. The liver, spleen, pancreas, adrenals and kidneys appear grossly normal. There is no evidence of diverticulitis. Suprapubic catheter within the bladder. Thickened bladder wall likely related to chronic bladder outl et obstruction. Tiny umbilical hernia. RADIO REPAIRMAN shunt tubing in place. Spina bifida. Stranding within the subcutaneous fat left buttocks related to inflammation. No abscess seen. IMPRESSION: No significant acute abnormality is displayed.
[2021-06-05 20:39] LABS: ALT/SGPT 49 U/L (12-78); AST/SGOT 27 U/L (15-37); Albumin 2.7 g/dL (3.4-5.0); Alkaline Phosphatase 111 U/L (45-117); BUN Blood Urea Nitrogen 10 mg/dL (7-18); Bicarbonate 26 mmol/L (21-32); Bilirubin Direct 0.2 mg/dL (0-0.2); Bilirubin Total 0.5 mg/dL (0.2-1.0); Glucose Level 87 mg/dL (74-106); Lipase 74 U/L (73-393); Protein, Total 7.5 g/dL (6.4-8.2); Sodium Level 142 mmol/L (136-145)
--- NOTE | 2021-06-05 21:15 | EDPHYS ---
Physician Documentation [facility] Name: Roland Feldman Jr Age: 36 yrs Sex: Male : 1985 Arrival Date: 06/05/2021 Time: 15:48 Bed 24 Private MD: ED Physician Prince Warner HPI: 06/05 17:22 This 36 yrs old Black Male presents to ER via Ambulatory with complaints of Diarrhea, kb Nausea/Vomiting. 17:22 The patient presents to the emergency department with nausea, vomiting, diarrhea, kb abdominal pain. Onset: The symptoms/episode began/occurred last week. Possible causes: unknown. The symptoms are aggravated by nothing. The symptoms are alleviated by nothing. Associated signs and symptoms: Pertinent positives: abdominal pain, diarrhea, nausea, vomiting, Pertinent negatives: fever. Severity of symptoms: At their worst the symptoms were moderate in the emergency department the symptoms are unchanged. The patient has not experienced similar symptoms in the past. The patient has been recently seen by a physician:. Pt reports n/v/d and abd pain that started last week. States he saw Dr Varela today and was sent here for admission. Historical: - Allergies: 16:20 Amoxicillin; aa5 16:20 Bactrim; aa5 16:20 Ciprofloxacin; aa5 16:20 CLAVULANIC ACID; aa5 16:20 Demerol; aa5 16:20 Doxycycline; aa5 16:20 Levofloxacin; aa5 16:20 Morphine; aa5 16:20 PENICILLINS; aa5 16:20 Toradol; aa5 16:20 TRIMETHOPRIM; aa5 16:20 Vancomycin; aa5 16:20 Zofran; aa5 - PMHx: 16:20 Asthma; Cerebral Palsy; cluster headaches; decubitus ulcers on feet; GERD; aa5 Hydrocephalus; Hypertension; spina bifida; - Immunization history:: Client reports having NOT received the Covid vaccine. - Social history:: Smoking status: Patient reports the use of cigarette tobacco products, 4-5 cigarettes a day . ROS: 17:21 Constitutional: Negative for fever, chills, and weight loss. kb 17:21 Abdomen/GI: Positive for abdominal pain, nausea, vomiting, and diarrhea. 17:21 All other systems are negative. Exam: 17:22 Constitutional: This is a well developed, well nourished patient who is awake, alert, kb and in no acute distress. Head/Face: Normocephalic, atraumatic. ENT: Moist Mucous membranes Cardiovascular: Regular rate and rhythm with a normal S1 and S2. No gallops, murmurs, or rubs. No pulse deficits. Respiratory: Respirations even and unlabored. No increased work of breathing, no retractions or nasal flaring. Skin: Warm, dry with normal turgor. Normal color. MS/ Extremity: Pulses equal, no cyanosis. Neurovascular intact. Full, normal range of motion. Neuro: Awake and alert, GCS 15, oriented to person, place, time, and situation. Moves all extremities. Normal gait. Psych: Awake, alert, with orientation to person, place and time. Behavior, mood, and affect are within normal limits. 17:22 Abdomen/GI: Inspection: abdomen appears normal, Bowel sounds: normal, in all quadrants, Palpation: soft, in all quadrants, moderate abdominal tenderness, in all quadrants. Vital Signs: 16:18 BP 147 / 103; Pulse 96; Resp 18 S; Temp 98.6(TE); Pulse Ox 98% on R/A; Weight 145.15 kg aa5 (R); Height 4 ft. 11 in. (149.86 cm) (R); 18:37 BP 140 / 93; Pulse 84; Resp 20 S; Pulse Ox 98% on R/A; as6 21:00 BP 135 / 86; Pulse 78; Resp 18; Pulse Ox 99% on R/A; df1 22:55 BP 138 / 88; Pulse 85; Resp 18; Pulse Ox 98% on R/A; df1 16:18 Body Mass Index 64.63 (145.15 kg, 149.86 cm) aa5 MDM: 16:53 Patient medically screened. kb 17:21 Data reviewed: vital signs, nurses notes. Data interpreted: Pulse oximetry: on room air kb is 98 %. Interpretation: normal. Counseling: I had a detailed discussion with the patient and/or guardian regarding: the historical points, exam findings, and any diagnostic results supporting the discharge/admit diagnosis, lab results, radiology results, the need for further work-up and treatment in the hospital. 20:31 ED course: Initial CBC was done with blood that was drawn proximal to an IV with NS kb infusing. Redraw ordered. 21:19 ED course: Pt unable to tolerate PO intake. kb 06/05 16:54 Order name: Basic Metabolic Panel; Complete Time: 20:41 kb 06/05 16:54 Order name: CBC with Diff; Complete Time: 18:43 kb 06/05 16:54 Order name: Hepatic Function; Complete Time: 20:41 kb 06/05 16:54 Order name: Lipase; Complete Time: 20:41 kb 06/05 16:54 Order name: COVID-19 SARS RT PCR (Document "Date of Onset" if Symptomatic); Complete kb Time: 18:02 06/05 20:42 Order name: CBC with Diff; Complete Time: 21:28 kb 06/05 18:38 Order name: Abdomen ; Complete Time: 19:11 EDMS 06/06 07:25 Order name: CBC with Automated Diff EDMS 06/06 07:25 Order name: Basic Metabolic Panel EDMS 06/06 07:25 Order name: Liver (Hepatic) Function EDMS 06/06 07:25 Order name: Lipase EDMS 06/05 16:54 Order name: IV Saline Lock; Complete Time: 17:16 kb 06/05 16:54 Order name: Labs collected and sent; Complete Time: 18:30 kb 06/05 19:01 Order name: Labs - recollect needed: recollect lavender and green top; Complete Time: bd 19:07 Administered Medications: 17:16 Drug: NS 0.9% 1000 ml Route: IV; Rate: 1000 ml; Site: left hand; aa5 18:15 Follow up: Response: No adverse reaction; IV Status: Completed infusion; IV Intake: jd3 1000ml 17:27 Drug: Phenergan (promethazine) 12.5 mg Route: IVP; Site: left hand; aa5 18:20 Follow up: Response: No adverse reaction jd3 17:27 Drug: Dilaudid (HYDROmorphone) 1 mg Route: IVP; Infused Over: 30 mins; Site: left hand; aa5 18:20 Follow up: Response: No adverse reaction; RASS: Alert and Calm (0) jd3 19:21 Drug: Phenergan (promethazine) 12.5 mg Route: IVP; Site: left hand; jd3 22:55 Follow up: Response: Nausea is decreased df1 19:21 Drug: Dilaudid (HYDROmorphone) 1 mg Route: IVP; Site: left hand; jd3 22:55 Follow up: Response: Pain is decreased df1 22:24 Drug: Dilaudid (HYDROmorphone) 1 mg Route: IVP; Site: left hand; df1 22:54 Follow up: Response: Pain is decreased df1 22:24 Drug: Promethazine 12.5 mg Route: IVP; Site: left hand; df1 22:54 Follow up: Response: Nausea is decreased df1 Disposition: 06/06 12:41 Co-signature as Attending Physician, Prince Warner MD I agree with the assessment and kdr plan of care. Disposition Summary: 06/05/21 21:15 Hospitalization Ordered Hospitalization Status: Observation kb Provider: Eren Varela Condition: Stable kb Problem: new kb Symptoms: are unchanged kb Bed/Room Type: Standard kb Location: Telemetry/MedSurg (observation)(06/06/21 07:32) bd Room Assignment: 405(06/06/21 07:32) bd Diagnosis - Diarrhea, unspecified kb - Nausea with vomiting, unspecified kb Forms: - Medication Reconciliation Form kb - SBAR form kb Signatures: Dispatcher [employer] EDMS Florence Olivas FNP-C MILANESE KNITTING MACHINE OPERATOR-Amanda Trejo Martha, RN RN mw Rittger, Kevin, MD MD [facility] Christin Vick RN RN aa5 Buddy Kumar PA PA jr8 José Luis Mason RN RN jd3 Tiki Obrien df1 Corrections: (The following items were deleted from the chart) 06/05 18:38 17:34 Abdomen Pelvis W Con+CT.RAD.BRZ ordered. EDMS EDMS 22:52 21:15 Telemetry/MedSurg (observation) kb mw 22:52 21:15 kb mw 06/06 07:32 06/05 22:52 [facility] ER HOLD mw bd 06/06 07:32 06/05 22:52 ERHOLD- mw bd
--- NOTE | 2021-06-05 21:15 | ER ---
Nurse's Notes [facility] Name: Roland Feldman Jr Age: 36 yrs Sex: Male : 1985 Arrival Date: 06/05/2021 Time: 15:48 Bed 24 Private MD: Diagnosis: Diarrhea, unspecified;Nausea with vomiting, unspecified Presentation: 06/05 16:18 Chief complaint: Patient states: Nausea/vomiting/diarrhea that began on Saturday. Reports aa5 being sent here by Dr. Varela. Coronavirus screen: diarrhea, nausea, vomiting. Ebola Screen: No symptoms or risks identified at this time. Initial Sepsis Screen: Does the patient meet any 2 criteria? HR > 90 bpm. Does the patient have a suspected source of infection? Yes:. Risk Assessment: Do you want to hurt yourself or someone else? Patient reports no desire to harm self or others. Onset of symptoms was May 2021. 16:18 Method Of Arrival: Ambulatory aa5 16:18 Acuity: YUKI 3 aa5 Historical: - Allergies: 16:20 Amoxicillin; aa5 16:20 Bactrim; aa5 16:20 Ciprofloxacin; aa5 16:20 CLAVULANIC ACID; aa5 16:20 Demerol; aa5 16:20 Doxycycline; aa5 16:20 Levofloxacin; aa5 16:20 Morphine; aa5 16:20 PENICILLINS; aa5 16:20 Toradol; aa5 16:20 TRIMETHOPRIM; aa5 16:20 Vancomycin; aa5 16:20 Zofran; aa5 - PMHx: 16:20 Asthma; Cerebral Palsy; cluster headaches; decubitus ulcers on feet; GERD; aa5 Hydrocephalus; Hypertension; spina bifida; - Immunization history:: Client reports having NOT received the Covid vaccine. - Social history:: Smoking status: Patient reports the use of cigarette tobacco products, 4-5 cigarettes a day . Screenin:58 Abuse screen: Denies threats or abuse. Nutritional screening: No deficits noted. tw2 Tuberculosis screening: No symptoms or risk factors identified. Fall Risk None identified. Assessment: 17:34 General: Appears in no apparent distress. uncomfortable, Behavior is calm, cooperative. aa5 Pain: Complains of pain in right lower quadrant. Neuro: Level of Consciousness is awake, alert, obeys commands, Oriented to person, place, time, situation. Cardiovascular: Capillary refill < 3 seconds Patient's skin is warm and dry. Respiratory: Airway is patent Trachea midline Respiratory effort is even, unlabored, Respiratory pattern is regular, symmetrical. GI: Abdomen is tender to palpation in right lower quadrant Reports diarrhea, nausea, vomiting. : Parent/caregiver report the patient having indwelling catheter in place. Derm: Wound noted Other: rajendra wounds to feet, drsg dry and intact, wound to sacrum, drsg dry and intact. Musculoskeletal: Reports uses wheelchair. 18:30 Reassessment: Patient and/or family updated on plan of care and expected duration. Pain as6 level reassessed. Patient is alert, oriented x 3, equal unlabored respirations, skin warm/dry/pink. pt still c/o pain, provided notified. Vital Signs: 16:18 BP 147 / 103; Pulse 96; Resp 18 S; Temp 98.6(TE); Pulse Ox 98% on R/A; Weight 145.15 kg aa5 (R); Height 4 ft. 11 in. (149.86 cm) (R); 18:37 BP 140 / 93; Pulse 84; Resp 20 S; Pulse Ox 98% on R/A; as6 21:00 BP 135 / 86; Pulse 78; Resp 18; Pulse Ox 99% on R/A; df1 22:55 BP 138 / 88; Pulse 85; Resp 18; Pulse Ox 98% on R/A; df1 16:18 Body Mass Index 64.63 (145.15 kg, 149.86 cm) aa5 ED Course: 15:48 Patient arrived in ED. ds1 16:18 Arm band placed on. aa5 16:20 Triage completed. aa5 16:53 Florence Olivas FNP-C [facility]. kb 16:53 Prince Warner MD is Attending Physician. kb 16:57 Zuhair Monroy RN is Primary Nurse. as6 17:17 Inserted saline lock: 22 gauge in left hand, using aseptic technique. aa5 17:40 Bed in low position. Call light in reach. Side rails up X2. Pulse ox on. NIBP on. aa5 18:25 Initial lab(s) drawn, by me, sent to lab. jd3 18:39 Abdomen In Process Unspecified. EDMS 19:07 Lab(s) recollected, by me, sent to lab. jd3 21:14 Eren Varela MD is Hospitalizing Provider. kb 21:20 CBC with Diff Sent. tw5 22:58 No provider procedures requiring assistance completed. df1 23:15 Patient admitted, IV remains in place. df1 Administered Medications: 17:16 Drug: NS 0.9% 1000 ml Route: IV; Rate: 1000 ml; Site: left hand; aa5 18:15 Follow up: Response: No adverse reaction; IV Status: Completed infusion; IV Intake: jd3 1000ml 17:27 Drug: Phenergan (promethazine) 12.5 mg Route: IVP; Site: left hand; aa5 18:20 Follow up: Response: No adverse reaction jd3 17:27 Drug: Dilaudid (HYDROmorphone) 1 mg Route: IVP; Infused Over: 30 mins; Site: left hand; aa5 18:20 Follow up: Response: No adverse reaction; RASS: Alert and Calm (0) jd3 19:21 Drug: Phenergan (promethazine) 12.5 mg Route: IVP; Site: left hand; jd3 22:55 Follow up: Response: Nausea is decreased df1 19:21 Drug: Dilaudid (HYDROmorphone) 1 mg Route: IVP; Site: left hand; jd3 22:55 Follow up: Response: Pain is decreased df1 22:24 Drug: Dilaudid (HYDROmorphone) 1 mg Route: IVP; Site: left hand; df1 22:54 Follow up: Response: Pain is decreased df1 22:24 Drug: Promethazine 12.5 mg Route: IVP; Site: left hand; df1 22:54 Follow up: Response: Nausea is decreased df1 Intake: 18:15 IV: 1000ml; Total: 1000ml. jd3 Outcome: 21:15 Decision to Hospitalize by Provider. kb 23:14 Admitted to ER Hold. Please see [facility] for further documentation. df1 23:14 Condition: stable 23:14 Instructed on the need for admit. 06/06 09:25 Patient left the ED. iw Signatures: Dispatcher [employer] EDMS Florence Olivas, DEMETRIUS-C RUBBER PRODUCTION MACHINE OPERATOR-Jaleesa Caputo ds1 Kathy Hoyos, RN RN iw Christin Vick RN RN aa5 Evangelina Villa RN RN tw2 José Luis Mason RN RN Tiki Marquez df1 Mary Anne Garcia tw5 Zuhair Monroy RN RN as6 Corrections: (The following items were deleted from the chart) 06/05 16:21 16:18 BP 147 / 103; Pulse 96bpm; Resp 18bpm; Spontaneous; Pulse Ox 98% RA; Temp 98.6F aa5 Temporal; aa5 22:58 21:00 BP 135 / ???; Pulse 78bpm; Resp 18bpm; Pulse Ox 99% RA; df1 df1
[2021-06-05 21:26] LABS: Absolute Lymphocytes (CBC) 2.1 K/uL (0.7-4.9); Basophils % 0.7 % (0-1.3); Hematocrit 47.1 % (39.6-49.0); Lymphocytes % 19.1 % (15.3-44.8); MPV 7.8 fL (7.6-11.3); RBC Red Blood Cell Count 5.39 M/uL (4.33-5.43)
[2021-06-05] MEDS ORDERED: NA CHLORIDE 0.9% 50 ML ONE (22:14)
[2021-06-06] MEDS ORDERED: TRAMADOL HCL 50 MG TAB PO PRN (00:12)
[2021-06-06] MEDS ORDERED: NA CHLORIDE 0.9% 1,000 ML ONE (01:52)
[2021-06-06 02:21] VITALS: BMI 60.5
[2021-06-06] MEDS: NA CHLORIDE 0.9% 1,000 ML IV SCH ×4 (04:12→21:37)
[2021-06-06] MEDS ORDERED: PROMETHAZINE INJ 25 MG/ML AMP ONE ×2 (04:14→08:53)
[2021-06-06] MEDS: PROMETHAZINE INJ 25 MG/ML AMP IV PRN ×4 (04:16→21:36)
[2021-06-06 04:36] LABS: Absolute Lymphocytes (CBC) 2.2 K/uL (0.7-4.9); Basophils % 0.7 % (0-1.3); Hematocrit 43.3 % (39.6-49.0); Lymphocytes % 22.3 % (15.3-44.8); MPV 7.8 fL (7.6-11.3); RBC Red Blood Cell Count 4.98 M/uL (4.33-5.43)
[2021-06-06 04:49] LABS: ALT/SGPT 52 U/L (12-78); AST/SGOT 26 U/L (15-37); Albumin 2.5 g/dL (3.4-5.0); Alkaline Phosphatase 111 U/L (45-117); BUN Blood Urea Nitrogen 10 mg/dL (7-18); Bicarbonate 25 mmol/L (21-32); Bilirubin Direct 0.1 mg/dL (0-0.2); Bilirubin Total 0.5 mg/dL (0.2-1.0); Glucose Level 90 mg/dL (74-106); Lipase 58 U/L (73-393); Potassium 3.9 mmol/L (3.5-5.1); Protein, Total 7.2 g/dL (6.4-8.2); Sodium Level 143 mmol/L (136-145)
[2021-06-06] MEDS ORDERED: INFLUENZA VACCINE (for 6+ mo) 0.5 ML DOSE IMVAC ONE (09:00)
--- NOTE | 2021-06-06 09:14 | P.HP ---
Certification for Inpatient Patient admitted to: Observation With expected LOS: <2 Midnights Patient will require the following post-hospital care: None Practitioner: I am a practitioner with admitting privileges, knowledge of patient current condition, hospital course, and medical plan of care. Services: Services provided to patient in accordance with Admission requirements found in Title 42 Section 412.3 of the Code of Federal Regulations Patient History Date of Service: 06/05/21 Primary Care Provider: Nichole Reason for admission: intractable diarrhea History of Present Illness: Patient has been having diarrhe for the past 2 weeks. Have treated him with lomotil and xifamine He has been to the wound care center today. Was having 5 stools a day. As he has pressure score on his scrotum and left ischium. Which has worsened. considering that he is a paraplegic. Therefore he has diffculty keeping himself clean. Decide on sending the patient to the er for admission and having him seen by Dr Albarran. Who has seen him in the past Allergies levofloxacin [From Levaquin] Allergy (Intermediate, Verified 04/01/18 22:08) Hives morphine Allergy (Intermediate, Verified 04/01/18 22:08) Hives sulfamethoxazole [From Bactrim] Allergy (Intermediate, Verified 04/01/18 22:08) Hives ketorolac tromethamine [From Toradol] Allergy (Verified 04/01/18 22:08) Nausea/Vomiting Penicillins Allergy (Verified 06/06/21 02:19) Hives/Rash vancomycin Allergy (Verified 04/01/18 22:08) Hives ondansetron [From Zofran (as hydrochloride)] Adverse Reaction (Mild, Verified 04/01/18 22:08) Nausea/Vomiting amoxicillin [From Augmentin] Adverse Reaction (Verified 04/01/18 22:08) Hives/Rash ciprofloxacin Adverse Reaction (Verified 04/01/18 22:08) Nausea/Vomiting doxycycline Adverse Reaction (Verified 04/01/18 22:08) Nausea/Vomiting sesame seed Adverse Reaction (Verified 04/01/18 22:08) diarrhea pop corn Adverse Reaction (Severe, Uncoded 04/01/18 22:08) diarrhea Home Medications: Oxycodone HCl/Acetaminophen [Oxycodone-Acetaminophen 10-325] 1 tab PO Q6H 06/06/21 - Past Medical/Surgical History Has patient received pneumonia vaccine in the past: No Diabetic: No -: Spina Bifida with hydrocephalus -: Depression -: Insomnia -: Incontinence -: GERD -: Chronic pain syndrome -: Muscle wasting -: Paraplegia -: Shunt revision -: Cholecystectomy -: Foot surgery -: Hip sx BL -: Bilateral hip surgery -: Appendectomy Psychosocial/ Personal History: Patient currently single. He has no children. He is disabled. - Family History Father -: Hypertension Mother -: Hypertension - Social History Smoking Status: Current every day smoker Alcohol use: Yes CD- Drugs: No Caffeine use: Yes Review of Systems Gastrointestinal: Diarrhea Physical Examination - Vital Signs Temperature: 98.4 F Blood Pressure: 116/75 Pulse: 86 Respirations: 18 Pulse Ox (%): 97 - Physical Exam General: Alert, In no apparent distress HEENT: Atraumatic, PERRLA, Mucous membr. moist/pink, EOMI, Sclerae nonicteric Neck: Supple, 2+ carotid pulse no bruit, No LAD, Without JVD or thyroid abnormality Respiratory: Clear to auscultation bilaterally, Normal air movement Cardiovascular: Regular rate/rhythm, Normal S1 S2 Gastrointestinal: Normal bowel sounds, No tenderness Musculoskeletal: No tenderness Integumentary: No rashes, Pressure ulcer Neurological: Normal gait, Normal speech, Normal strength at 5/5 x4 extr, Normal tone, Normal affect Lymphatics: No axilla or inguinal lymphadenopathy - Studies Laboratory Data (last 24 hrs) 06/05/21 21:04: WBC 11.20 H D, Hgb 15.3 D, Hct 47.1 D, Plt Count 372 D 06/05/21 20:09: Sodium 142, Potassium 4.0, BUN 10, Creatinine 0.57, Glucose 87, Total Bilirubin 0.5, AST 27, ALT 49, Alkaline Phosphatase 111, Lipase 74 06/05/21 18:21: WBC 5.70, Hgb 6.6 L*, Hct 20.1 L*, Plt Count 179 Assessment and Plan - Problems (Diagnosis) (1) Diarrhea Current Visit: Yes Status: Acute Plan: will admit the patient. keep NPO. consult Dr. Youssef Qualifiers: Diarrhea type: functional diarrhea Qualified Code(s): K59.1 - Functional diarrhea (2) Pressure ulcer Current Visit: Yes Status: Acute Plan: Have debrided in the wound center. Will continue him on medihoney in the hospit al. (3) Diabetes Current Visit: Yes Status: Chronic Plan: will restart his home insulin. Check an a1c on the patient. Qualifiers: Diabetes mellitus type: type 2 Diabetes mellitus chcf insulin use: with chcf use Discharge Plan: Home Plan to discharge in: 48 Hours - Advance Directives Does patient have a Living Will: No Does patient have a Durable POA for Healthcare: No - Code Status/Comfort Care Code Status Assessed: Yes Code Status: Full Code Critical Care: No Time Spent Managing Pts Care (In Minutes): 70
[2021-06-06 10:54] VITALS: O2SAT 94
[2021-06-06] MEDS: MEDIHONEY 44 ML TOPICAL TUBE TOP SCH (12:08)
--- NOTE | 2021-06-06 12:32 | P.PN ---
Subjective Date of Service: 06/06/21 Primary Care Provider: Nichole Chief Complaint: intractable diarrhea Subjective: No new changes, Improving (no reported diarhea over the night.) Review of Systems 10-point ROS is otherwise unremarkable Gastrointestinal: Diarrhea Physical Examination - Vital Signs Temperature: 97.3 F Blood Pressure: 132/72 Pulse: 82 Respirations: 18 Pulse Ox (%): 96 - Physical Exam General: Alert, In no apparent distress HEENT: Atraumatic, PERRLA, EOMI Neck: Supple, JVD not distended Respiratory: Clear to auscultation bilaterally, Normal air movement Cardiovascular: Regular rate/rhythm, Normal S1 S2 Gastrointestinal: Normal bowel sounds, No tenderness Musculoskeletal: No tenderness Integumentary: No rashes Neurological: Normal speech, Normal tone, Normal affect Lymphatics: No axilla or inguinal lymphadenopathy - Studies Laboratory Data (last 24 hrs) 06/05/21 21:04: WBC 11.20 H D, Hgb 15.3 D, Hct 47.1 D, Plt Count 372 D 06/05/21 20:09: Sodium 142, Potassium 4.0, BUN 10, Creatinine 0.57, Glucose 87, Total Bilirubin 0.5, AST 27, ALT 49, Alkaline Phosphatase 111, Lipase 74 06/05/21 18:21: WBC 5.70, Hgb 6.6 L*, Hct 20.1 L*, Plt Count 179 Assessment & Plan - Problems (Diagnosis) (1) Diarrhea Current Visit: Yes Status: Acute Plan: will admit the patient. keep NPO. consult Dr. Youssef 06/[address] Dc. He has reponded to cholestyramine in the past. Will restart him on it. we can discharge him on this. He has only had one bowel movement since he was admitted Qualifiers: Diarrhea type: functional diarrhea Qualified Code(s): K59.1 - Functional diarrhea (2) Pressure ulcer Current Visit: Yes Status: Acute Plan: Have debrided in the wound center. Will continue him on medihoney in the hospital. Qualifiers: Pressure injury location: buttock Pressure injury stage: stage 2 Laterality: left Qualified Code(s): L89.322 - Pressure ulcer of left buttock, stage 2 (3) Diabetes Current Visit: Yes Status: Chronic Plan: will restart his home insulin. Check an a1c on the patient. 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
[2021-06-06] MEDS: HYDROCODONE/APAP 7.5/325 MG TAB PO PRN ×2 (15:42→21:36)
[2021-06-06] MEDS: CHOLESTYRAMINE/ASP 4 GM/PKT PO SCH (16:55)
[2021-06-07] MEDS: NA CHLORIDE 0.9% 1,000 ML IV SCH (04:00)
[2021-06-07] MEDS: PROMETHAZINE INJ 25 MG/ML AMP IV PRN ×2 (04:00→09:48)
[2021-06-07 07:54] VITALS: BP 142/89; TEMP 97.5
[2021-06-07] MEDS: CHOLESTYRAMINE/ASP 4 GM/PKT PO SCH (09:48)
--- NOTE | 2021-06-07 09:48 | P.DS ---
Admission Date: 06/05/21 Discharge Date: 06/07/21 Primary Care Provider: Nichole Disposition: ROUTINE DISCHARGE Discharge Condition: GOOD Reason for Admission: intractable diarrhea - Problems (1) Diarrhea Current Visit: Yes Status: Acute Qualifiers: Diarrhea type: functional diarrhea Qualified Code(s): K59.1 - Functional diarrhea (2) Pressure ulcer Current Visit: Yes Status: Acute Qualifiers: Pressure injury location: buttock Pressure injury stage: stage 2 Laterality: left Qualified Code(s): L89.322 - Pressure ulcer of left buttock, stage 2 (3) Diabetes Current Visit: Yes Status: Chronic Qualifiers: Diabetes mellitus type: type 2 Diabetes 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 Have treated him with lomotil and xifamine He has been to the wound care center today. Was having 5 stools a day. As he has pressure score on his scrotum and left ischium. Which has worsened. considering that he is a paraplegic. Therefore he has diffculty keeping himself clean. Decide on sending the patient to the er for admission and having him seen by Dr Albarran. Who has seen him in the past Hospital Course: Patient was sent from the wound care center. He had normal labs. The patient has soft stools here. He has normal studies. Was seen by Dr. Youssef. who reported he has done well on cholestyramine in the past. Have started him on this. The patient was complainting about pain. Which he has done chronically. Have a long history with the patient. He has assumed the sick role. The patient has a c diff pending. We can start him on oral flagy if positive. He can follow up with me in the wound care center. Vital Signs/Physical Exam: Temp Pulse Resp BP Pulse Ox 97.5 F 77 18 142/89 H 96 11/24/21 07:53 06/07/21 07:53 06/07/21 07:53 06/07/21 07:53 06/07/21 07:53 General: Alert, In no apparent distress HEENT: Atraumatic, PERRLA, EOMI Neck: Supple, JVD not distended Respiratory: Clear to auscultation bilaterally, Normal air movement Cardiovascular: Regular rate/rhythm, Normal S1 S2 Gastrointestinal: Normal bowel sounds, No tenderness Musculoskeletal: No tenderness Integumentary: No rashes Neurological: Normal speech, Normal tone, Normal affect Lymphatics: No axilla or inguinal lymphadenopathy Laboratory Data at Discharge: WBC 9.60 K/uL (4.3-10.9) D 06/06/21 04:10 Hgb 14.4 g/dL (13.6-17.9) 06/06/21 04:10 Hct 43.3 % (39.6-49.0) 06/06/21 04:10 Plt Count 337 K/uL (152-406) 06/06/21 04:10 Sodium 143 mmol/L (136-145) 06/06/21 04:10 Potassium 3.9 mmol/L (3.5-5.1) 06/06/21 04:10 BUN 10 mg/dL (7-18) 06/06/21 04:10 Creatinine 0.53 mg/dL (0.55-1.3) L 06/06/21 04:10 Glucose 90 mg/dL (74-106) 06/06/21 04:10 Total Bilirubin 0.5 mg/dL (0.2-1.0) 06/06/21 04:10 AST 26 U/L (15-37) 06/06/21 04:10 ALT 52 U/L (12-78) 06/06/21 04:10 Alkaline Phosphatase 111 U/L (45-117) 06/06/21 04:10 Lipase 58 U/L (73-393) L 06/06/21 04:10 Home Medications: Oxycodone HCl/Acetaminophen [Oxycodone-Acetaminophen 10-325] 1 tab PO Q6H 06/06/21 Cholestyramine [Cholestyramine Resin] 5 gm MC BID 6AM 6PM 90 Days #180 powder 06/07/21 New Medications: Cholestyramine [Cholestyramine Resin] 5 gm MC BID 6AM 6PM 90 Days #180 powder Diet: ADA Activity: Ad dinorha Followup: Eren Varela MD [Primary Care Provider] - Time spent managing pt's care (in minutes): 30
[2021-06-07] MEDS: MEDIHONEY 44 ML TOPICAL TUBE TOP SCH (09:49)
[2021-06-07 13:13] LABS: C.diff Antigen/Toxin Ag pos : Tox pos (NEG : NEG)
== END 2021-06-07 11:30 | disposition home or self-care (01) ==
LOC: ER 15:35 → ERHOLD 21:13 → 4TH 06-06 09:18
PROVIDERS: ADMIT Internal Medicine; ATTEND Internal Medicine
DX: R19.7 Diarrhea, unspecified (principal); L89.322 Pressure ulcer of left buttock, stage 2; E11.9 Type 2 diabetes mellitus without complications; Z79.4 Long term (current) use of insulin; Q05.9 Spina bifida, unspecified; G82.20 Paraplegia, unspecified; Z20.822 Contact with and (suspected) exposure to COVID-19
CPT/HCPCS: 96361; 87045; 85025 ×3; 80048 ×2; 36415; 82274; 80076 ×2; 87046; 87324; 83690 ×2; 87449; 74176; 96375; 96374; 99285; U0003; J2550 ×9; J1170 ×3; J7030 ×5; G0378 ×3

== ENCOUNTER 2021-09-25 20:40 | Emergency (ER) | payer OTHER ==
--- OUTSIDE RECORDS SUMMARY | 2021-09-25 20:50 | XMS REPORT | Continuity of Care Document ---
:1985 Author Organization [facility] t Address [address] [place] [address] Dr. [address] [place] [address] Care Team Providers Name Role Phone Sussy MARC Primary Care Physician Unavailable Nichole Attending Clinician Unavailable Duane GARCIA Attending Clinician Christ SERNA Attending Clinician Unavailable Daphne NUNO S Attending Clinician Kosta NUNO Attending Clinician Kb BALDERRAMA Attending Clinician Unavailable Conchis ROMO J Attending Clinician Hi FONSECA Attending Clinician Unavailable Raymundo BOYLE G Attending Clinician Only, Db Test Attending Clinician Unavailable Toño NUNO Attending Clinician TOÑO Attending Clinician Unavailable HOOK Attending Clinician Unavailable Hook Attending Clinician Analia ROMO, F Attending Clinician Cassandra SAUNDERS Attending Clinician Unavailable MITCHELL Attending Clinician Unavailable LAMAR GENAO Attending Clinician Unavailable EDIONWE Admitting Clinician Unavailable Kosta NUNO Admitting Clinician Kb BALDERRAMA Admitting Clinician Unavailable Hi FONSECA Admitting Clinician Unavailable ALEX Admitting Clinician Unavailable LAMAR GENAO Admitting Clinician Unavailable Payers Payer Name Policy Type Policy Number Effective Date Expiration Date S ource Advance Directives Directive Decision Effective Termination Comments Source Date Date Healthcare Agents on N/A [facility] FileNameRelationD[facility] Agent Medical RelationshipCommunicationC[facility] Health [facility] [phone] (Mobile) Problems Condition Condition Condition Status Onset Resolution Last Treating Co mments Source Name Details Category Date Date Treatment Clinician Date Complicate Complicate Disease Active U nivers d urinary d urinary 1-20 ity of tract tract 00:00: [place] infection infection 00 [facility] Hyperglyce Hyperglyce Disease Active [facility] 07[facility]21 [facility] without without 00:00: Medical ketosis ketosis 00 Center HEADACHE Diagnosis Active 2017-072017-11-20 M emoria 07-22 09:20:00 l HEADACHE 00:00: Christian n 00 Active [facility] [place] SHUNT Diagnosis Active 2017-11-14 Mem oria MALFUNCTIO 11-14 20:00:00 l N SHUNT 00:00: Jason MALFUNCTIO 00 N Active 11/14/2017 [facility] [place] ACUTE Diagnosis Active 2017-11-20 Mem oria HEADACHE 11-14 09:20:00 l ACUTE 00:00: Jason HEADACHE 00 Active 11/14/2017 [facility] [place] Spina Spina Disease Active [facility] bif[facility] bifida 12-24 [facility] 00:[facility]: Medical 00 [place] Pyelonephr Pyelonephr Disease Active [facility] itis itis 12-23 [facility] 00:[facility]: Medical 00 [place] Morbid Morbid Disease Active Univers obesity obesity 1-04 [place] of with body [place] body 00:[place] mass index mass index 00 Me dical of 50 or of 50 or Branch higher higher Morbid Morbid Disease Active Univers obesity obesity 1-04 [place] of with body with body 00:[place] mass index mass index 00 Me dical of of Branch 40.0-49.9 40.0-49.9 Spina Problem 2018-12-09 Memor ia bifida, 14:14:02 l unspecifie Spina Kristen nn d bifida, unspecifie d 12/09/2018 [facility] [place] Nausea Problem 2018-12-09 Memor ia with 14:14:02 l vomiting, Nausea Kristen nn unspecifie with d vomiting, unspecifie d 12/09/2018 [facility] [place] Diplopia Problem 2018-12-09 Mem oria 14:14:02 l Diplopia Christian n 12/09/2018 [facility] [place] 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, 14:14:02 l unspecifie Cerebral He rmann d palsy, unspecifie d 12/09/2018 [facility] [place] 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-09 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:14:02 l other Acquired Christian n specified absence of parts of other digestive specified tract parts of digestive tract 12/09/2018 [facility] [place] Nicotine Problem 2018-12-09 Mem oria dependence 14:14:02 l , Nicotine Christian n cigarettes dependence , , uncomplica cigarettes lester , uncomplica lester 12/09/2018 [facility] [place] Presence Problem 2018-12-09 Mem oria of 14:14:02 l cerebrospi Presence He rmann nal fluid of drainage cerebrospi device nal fluid drainage device 12/09/2018 [facility] [place] Allergy Problem 2018-12-09 Erwin benjamin status to 14:14:02 l other Allergy Jason antibiotic status to agents other status antibiotic agents status 12/09/2018 [facility] [place] Allergy Problem 2018-12-09 Erwin benjamin status to 14:14:02 l other Allergy [place] drugs, status to medicament other s and drugs, biological medicament substances s and status biological substances status 12/09/2018 [facility] [place] Allergy Problem 2018-12-09 Erwin benjamin status to 14:14:02 l narcotic Allergy Kristen nn agent status to status narcotic agent status 12/09/2018 [facility] [place] Asthma Problem Resolve 2019-03-06 Erwin benjamin (disorder) d 01:05:55 l Asthma Jason (disorder) Resolved Problem 03/06/2019 [facility] [place] Bronchitis Problem Resolve 2019-03-06 Memoria (disorder) d 01:05:55 l Jason Bronchitis (disorder) Resolved Problem 03/06/2019 [facility] Cerebral Problem Resolve 2019-03-06 Me moria palsy d 01:05:55 l (disorder) Cerebral He rmann palsy (disorder) Resolved Problem 03/06/2019 [facility] Hydrocepha Problem Resolve 2019-03-06 Memoria bam d 01:05:55 l (disorder) Christian n Hydrocepha bam (disorder) Resolved Problem 03/06/2019 [facility] Osteomyeli Problem Resolve 2019-03-06 Memoria tis d 01:05:55 l (disorder) Christian n Osteomyeli tis (disorder) Resolved Problem 03/06/2019 [facility] Acute pain Problem Active 2019-03-06 M emoria (finding) 01:05:55 l Acute Jason pain (finding) Active Problem 03/06/2019 [facility] Headache Problem Active 2019-03-06 Mem oria (finding) 01:05:55 l Headache Christian n (finding) Active Problem 03/06/2019 [facility] History of Past Illness Condition Condition Condition Status Onset Resolution Last Treating Co mments Source Name Details Category Date Date Treatment Clinician Date Headache Problem 2017-072018-12-09 2018-12-09 Memoria 07-22 14:14:02 14:14:02 l Headache 06:00: Christian n 00 05/22/2018 12/09/2018 [facility] [place] Allergies, Adverse Reactions, Alerts Allergy Allergy Status Severity Reaction(s) Onset Inactive Treating Comm ents Source Name Type Date Date Clinician Amoxicil Propensi Active Hives Univer s [place] ty to 02-07 ity of adverse 00:00: [place] reaction 00 Medical s Branch AMOXICIL DRUG Active Hives Univers LAKE INGREDI 02-07 ity of 00:00: [place] 00 Medical Branch Metoclop Propensi Active Nausea 2016-07 Univer s ramide ty to and/or 2-20 ity of Hcl adverse Vomiting 00:00: [place] reaction 00 Medical s Branch METOCLOP DRUG Active N/V 2016-07 Univers RAMIDE INGREDI 2-20 ity of HCL 00:00: [place] 00 Medical Branch Sulfamet Propensi Active Hives 2017- [facility] hox[facility] ty to 12-23 [facility] -Trimeth adverse 00:00: Medical oprim reaction 00 Center s Levoflox Propensi Active Hives 2016- [facility] acin ty to 6 [facility] - adverse 00:00: Medical reaction 00 Center s SULFAMET Allergy Active High Hives 2016- [facility] HOXAZOLE 6-11 [facility] - -TRIMETH 00:00: Medical OPRIM 00 Center LEVOFLOX Allergy Active High Hives [address] [facility] ACIN 6 [facility] - 00:00: Medical 00 Center MORPHINE Allergy Active High Hives 2017- [facility] 6-11 [facility] - 00:00: Medical 00 Center KETOROLA Allergy Active High Rash 2016- [facility] C - [facility] - 00:00: Medical 00 Center VANCOMYC Allergy Active High Rash [facility] IN 12-23 [facility] - ANALOGUE 00:00: Medical S 00 Center SESAME Allergy Active Hives 2016- [facility] SEED 12-23 [facility] - 00:00: Medical 00 Center Morphine Propensi Active Hives [facility] ty to 12-23 [facility] - adverse 00:00: Medical reaction 00 Center s ONDANSET Allergy Active N\\T\\V 2016- [facility] KUMAR HCL 12-23 [facility] - (PF) 00:00: Medical 00 Center Sesame Propensi Active Hives 2016- [facility] Seed ty to 12-23 [facility] - adverse 00:00: Medical reaction 00 Center s Ketorola Propensi Active Rash 2016- [facility] ty to 12-23 [facility] - adverse 00:00: Medical reaction 00 Center s Vancomyc Propensi Active Rash 2017- [facility] in ty to 6 [facility] - Analogue adverse 00:00: Medical s reaction 00 Center s Ondanset Propensi Active Nausea And 2017-[address] kumar Hcl ty to Vomiting 12-23 [facility] - (Pf) adverse 00:00: Medical reaction 00 Center s Sulfa Propensi Active Other - See Uni vers (Sulfona ty to comments 07-18 ity of mide adverse 00:00: [place] Antibiot reaction 00 Medica l ics) s Branch Sulfamet Propensi Active Other - See U nivers hoprim ty to comments 1-04 ity of Ds adverse 00:00: [place] reaction 00 Medical s Branch Vancomyc Propensi Active Other - See U nivers in ty to comments 1-04 ity of adverse 00:00: [place] reaction 00 Medical s Branch SULFA Drug Active Other-Cmnt 0 Univer s (SULFONA Class 1-04 ity of MIDE 00:00: [place] ANTIBIOT 00 Medical ICS) Branch SULFAMET DRUG Active Other-Cmnt Univ ers HOPRIM 1 ity of DS 00:00: [place] 00 Medical Branch VANCOMYC DRUG Active Other-Cmnt Univ ers IN INGREDI 07-18 ity of 00:00: [place] 00 Medical Branch Sulfamet Propensi Active Rash 0 Univer s hoxazole ty to 7- ity of adverse 00:00: [place] reaction 00 Medical s Branch Ondanset Propensi Active Nausea 0 Univer s kumar Hcl ty to and/or 01-30 ity of (Pf) adverse Vomiting 00:00: [place] reaction Medical s Branch SULFAMET DRUG Active Rash Univers HOXAZOLE INGREDI 7- ity of 00:00: [place] 00 Medical Branch ONDANSET DRUG Active N/V 0 Univers KUMAR HCL 7-19 ity of (PF) 00:00: [place] 00 Medical Branch Levoflox Propensi Active Hives 0 Univer s acin ty to 5-23 ity of adverse 00:00: [place] reaction 00 Medical s Branch Morphine Propensi Active Hives 0 Univer s ty to 5-23 ity of adverse 00:00: [place] reaction 00 Medical s Branch Ketorola Propensi Active Nausea 0 Univer s c ty to and/or 5- ity of Trometha adverse Vomiting 00:00: [place] mine reaction 00 Medical s Branch LEVOFLOX DRUG Active Hives 0 Univers ACIN INGREDI 5-23 ity of 00:00: [place] 00 Medical Branch MORPHINE DRUG Active Hives 0 Univers INGREDI 5-23 ity of 00:00: [place] 00 Medical Branch KETOROLA DRUG Active N/V 0 Univers C INGREDI 5-23 ity of TROMETHA 00:00: [place] MINE 00 Medical Branch Morphine Adverse Active Info Not [facility] Sulfate Reaction Available [place] Levaquin Adverse Active Info Not [facility] Reaction Available [facility] Zofran Adverse Active Info Not [facility] Reaction Available [facility] Minocin Minocin Active Memoria l [place] Zofran Zofran Active Memoria l Jason Levaquin Levaquin Active Memori a l [place] Bactrim Bactrim Active Memoria l Jason amoxicil amoxicil Active Memori [place] morphine morphine Active Memori a l Jason Toradol Toradol Active Memoria l Jason Social History Social Habit Start Date Stop Date Quantity Comments Source History of tobacco Cigarette Smoker [facility] - use [facility] Exposure to Not sure University SARS-CoV-2 (event) [facility] Alcohol intake 2021-08-04 2021-08-04 0 /d [facility] 00:00:00 00:00:[address] [facility] Cigarettes smoked 2016-12-25 2016-12-25 [facility] - current (pack per 00:00:00 00:00:00 Medical Center day) - Reported Tobacco use and 2016-07-18 2016-07-18 Never used Universit y of exposure 00:00:00 00:00:[address] [facility] [birth year] [facility] [facility] Smoking Status Start Date Stop Date Source Current every day smoker 2016-07-18 00:00:[address] [facility] Medications Ordered Filled Start Stop Current Ordering Indication Dosage Frequency Signature Comments Components Source Medication Medication Date Date Medication? Clinician (SIG) Name Name HYDROmorpho 2021- No .5mg 0.5 mg, Un ela ne 08-09 Slow IV ity of (DILAUDID) 01:30: 01:25 Push, [place] injection 00 :00 ONCE, 1 Medical 0.5 mg dose, On Branch Sat08/08/21 at 1930, Routine
Use approved by (Faculty): ADC PROVIDER levoFLOXaci 2021- Yes [id number] 750mg Take 1 Univers n 750 mg 08-09 tablet by ity o f tablet 00:00: 05:59 mouth [place] 00 :00 daily for Medical 4 days. Branch levoFLOXaci 2021- Yes [id number] 750mg Take 1 Univers n 750 mg 08-09 tablet by ity o f tablet 00:00: 05:59 mouth [place] 00 :00 daily for Medical 4 days. Branch OXYCODONE Yes Take by [facility] ers HCL/ACETAMI 1-25 mouth. ity of NOPHEN 19:49: [place] (PERCOCET 27 Medical ORAL) Branch OXYCODONE Yes Take by [facility] ers HCL/ACETAMI 25 mouth. ity of NOPHEN 19:49: [place] (PERCOCET 27 Medical ORAL) [place] vancomycin 2021- Yes 125mg 125 mg, Un ela (VANCOCIN) 08-08 Oral, QID, it y of capsule 125 18:00: 21:59 25 doses, [place] mg 00 :00 First dose Medical (after Branch last modificati on) on Sat08/08/21 at 1200, Last dose on Sat08/14/21 at 1200, SAHARA
Fa culty member approving Non-formul shanelle medication : MEGADC<br& gt;Reason for non-formul shanelle use: SPECIFIC INDICATION FOR NONFORMULA RY PRODUCT
Reason for Anti-Infec tive: Documented Infection< br>Documen lester Infection Site: Abdominal< br>Duratio n of Therapy: 14 days levoFLOXaci Yes 750mg 750 mg, Un ela n 08-08 Oral, ity of (LEVAQUIN) 15:00: DAILY, [place] tablet 750 00 First dose Med ical mg (after Branch last modificati on) on Sat08/08/21 at 0900, Until Discontinu ed, SAHARA
Re ason for Anti-Infec tive: Empiric Therapy for Suspected Infection< br>Empiric Therapy Site: Urine
D uration of therapy: 72 hours lactobacill 2021- Yes [id number] .5mg Take 1 Univers us 08-08 tablet by ity of acidophilus 00:00: 05:59 mouth 2 [place] 00 :[place] (two) Medical times [place] daily for 30 days. lactobacill 2021- Yes [id number] .5mg Take 1 Univers us 08-08 tablet by ity of acidophilus 00:00: 05:59 mouth 2 [place] 00 :00 (two) Medical times Branch daily for 30 days. vancomycin 2021- Yes [id number] 125mg Take 1 Univers 125 mg 08-08 capsule by ity of capsule 00:00: 05:59 mouth 4 [place] 00 :00 (four) Medical times Branch daily for 5 days. vancomycin 2021- Yes [id number] 125mg Take 1 Univers 125 mg 08-08 capsule by ity of capsule 00:00: 05:59 mouth 4 [place] 00 :00 (four) Medical times Branch daily for 5 days. traMADoL Yes 50mg 50 mg, Univers (ULTRAM) 08-07 Oral, ity of tablet 50 21:26: Q6HPRN, [place] mg 10 Starting Medical on Mon Branch 08/07/21 at 1526, Until Discontinu ed, Routine, Pain (scale 4-6) levoFLOXaci 2021- No 250mg 250 mg, U nivers n 08-07 Oral, Q24H ity of (LEVAQUIN) 19:30: 23:18 ABX, First [place] tablet 250 00 :17 dose Medical mg (after Branch last modificati on) on Sat08/07/21 at 1330, Until Discontinu ed, SAHARA
Re ason for Anti-Infec tive: Empiric Therapy for Suspected Infection< br>Empiric Therapy Site: Urine
D uration of therapy: 72 hours HYDROmorpho 2021- No .5mg 0.5 mg, Un ela ne 08-06 Slow IV ity of (DILAUDID) 20:45: 18:23 Push, [place] injection 00 :44 Q6HPRN, Medical 0.5 mg Starting Branch on Sat08/06/21 at 1445, Until Sat08/07/21 at 1223, Routine, Pain (scale 7-10), breakthrou gh pain
Us e approved by (Faculty): ADC PROVIDER oxyCODONE-a Yes 2{tbl} 2 tablet, Univers cetaminophe 08-06 Oral, ity of n 20:39: Q6HPRN, [place] (PERCOCET) 03 Starting Medic al 5-325 mg on Sat Branch per tablet 08/06/21 at 2 tablet 1439, Until Discontinu ed, Routine, Pain (scale 7-10) HYDROmorpho 2021- No .5mg 0.5 mg, Un ela ne 08-06 Slow IV ity of (DILAUDID) 00:00: 23:41 Push, [place] injection 00 :00 ONCE, 1 Medical 0.5 mg dose, On Branch 08/05/21 at 1800, Routine
Use approved by (Faculty): ADC PROVIDER ertapenem 2021- No 1000mg 1,000 mg, [facility] (INVANZ) 08-05 IV ity of 1,000 mg in 15:45: 18:30 Piggyback, [place] NaCl 0.9% 00 :00 Q24H ABX, Medic al (NS) 50 mL First dose Bra [facility] MINI-BAG on 08/05/21 at 0945, Until Discontinu ed, Administer over 30 Minutes, 50 mL
Reas on for Anti-Infec tive: Empiric Therapy for Suspected Infection< br>Empiric Therapy Site: Urine
D uration of therapy: 72 hours
R estricted use approved by: ADC PROVIDER lactobacill Yes .5mg 0.5 mg, Uni vers 08-05 Oral, BID, ity of acidophilus 02:00: First dose [place] tablet 0.5 00 on Sat Medical mg 08/04/21 at Branch 1999, Until Discontinu ed, Routine vancomycin 2021- No 250mg 250 mg, Un ela (VANCOCIN) 08-05 Oral, QID, it y of capsule 250 02:00: 16:20 First dose [place] mg 00 :40 (after Medical last Branch reorder) on Sat08/04/21 at 1999, Until Discontinu ed, SAHARA
media law faculty member approving Non-formul shanelle medication : MEGADC
Reason for non-formul shanelle use: SPECIFIC INDICATION FOR NONFORMULA RY PRODUCT
Reason for Anti-Infec tive: Documented Infection< br>Documen lester Infection Site: Abdominal< br>Duratio n of Therapy: 14 days vancomycin No 250mg 250 mg, Un ela (VANCOCIN) 08-05 Oral, ity of capsule 250 00:45: 00:34 ONCE, 1 [place] mg 00 :00 dose, On Medical Fri Branch 08/04/21 at 1845, SAHARA
Fa culty member approving Non-formul shanelle medication : MEGADC
Reason for non-formul shanelle use: SPECIFIC INDICATION FOR NONFORMULA RY PRODUCT
Reason for Anti-Infec tive: Documented Infection< br>Documen lester Infection Site: Abdominal< br>Duratio n of Therapy: 14 days lidocaine 2021- No 5mL 5 mL, Univer s 1% (PF) 08-04 Subcutaneo ity o f (XYLOCAINE) 23:45: 02:25 us, ONCE, [place] injection 5 00 :00 1 dose, On Me dical mL Fri Branch 08/04/21 at 1745, Routine NaCl 0.9% Yes 10mL 10 mL, Univer s (NS) 08-04 Slow IV ity of injection 23:38: Push, [place], [place] 10 mL 41 Starting Medical on Fri Branch 08/04/21 at 1738, Until Discontinu ed, Routine, line maintenanc e meropenem No 1g 1 g, IV Univ ers (MERREM) 1 08-03 Piggyback, it y of g in NaCl 23:15: 14:33 Q8H ABX, Tim as 0.9% (NS) 00 :35 First dose Medi efrain 100 mL (after Branch MINI-BAG last modificati on) on Lbira 08/03/21 at 1715, Until Discontinu ed, Administer over 60 Minutes, 100 mL
Rest ricted use approved by: ADC PROVIDER<b r>Reaso n for Anti-Infec tive: Documented Infection< br>Documen lester Infection Site: Urine
D uration of Therapy: 7 days enoxaparin Yes 40mg 40 mg, Unive rs (LOVENOX) 08-03 Subcutaneo ity of injection 23:00: [place], DAILY, [place] 40 mg 00 First dose Medical on Libra Branch 08/03/21 at 1700, Until Discontinu ed, Routine meropenem 2021- No 1g 1 g, IV [facility] ers (MERREM) 08-03 Piggyback, it y of g in NaCl 16:00: 20:33 Q8H ABX, Tim as 0.9% (NS) 00 :04 First dose Medi efrain 100 mL (after Branch MINI-BAG last reorder) on Libra 08/03/21 at 1000, Until Discontinu ed, Administer over 60 Minutes, 100 mL
Rest ricted use approved by: ADC PROVIDER<b r>Reason for Anti-Infec tive: Documented Infection< br>Documen lester Infection Site: Urine
D uration of Therapy: Other (see Comments) HYDROmorpho 2021- No .5mg 0.5 mg, Un ela ne 08-03 Slow IV ity of (DILAUDID) 14:29: 20:41 Push, [place] injection 58 :17 Q4HPRN, Medical 0.5 mg Starting Branch on Libra 08/03/21 at 0829, Until 08/06/21 at 1441, Routine, Pain (scale 7-10)
U se approved by (Faculty): ADC PROVIDER proMETHazin Yes 25mg 25 mg, [facility] ers e 08-03 Oral, ity of (PHENERGAN) 09:42: Q4HPRN, [place] as tablet 25 07 Starting Medica l mg on Libra Branch 08/03/21 at 0342, Until Discontinu ed, Routine, Nausea and Vomiting (N/V) HYDROmorpho 2021- No .5mg 0.5 mg, Un ela ne 08-03 Slow IV ity of (DILAUDID) 09:41: 12:04 Push, [place] injection 36 :38 Q4HPRN, Medical 0.5 mg Starting Branch on Libra 08/03/21 at 0341, Until Libra 08/03/21 at 0604, Routine, Pain (scale 7-10)
U se approved by (Faculty): ADC PROVIDER proCHLORper 2022-0 Yes 10mg 10 mg, [facility] ers azine 08-03 Slow IV ity of (COMPAZINE) 09:07: Push, [place] injection 27 Q6HPRN, Medical 10 mg Starting Branch on Libra 08/03/21 at 0307, Until Discontinu ed, Routine, Nausea and Vomiting (N/V) acetaminoph Yes 650mg 650 mg, Un ela en 08-03 Oral, ity of (TYLENOL) 09:07: Q6HPRN, [place] tablet 650 10 Starting Medic al mg on Libra Branch 08/03/21 at 0307, Until Discontinu ed, Routine, Pain (scale 1-3) meropenem 2021- No 1g 1 g, IV [facility] ers (MERREM) 1 08-03 Piggyback, it y of g in NaCl 07:15: 08:49 ONCE, 1 [place] 0.9% (NS) 00 :00 dose, On Medica l 100 mL [facility] MINI-BAG 08/03/21 at 0115, Administer over 60 Minutes, 100 mL
Rest ricted use approved by: ADC PROVIDER<b r>Reason for Anti-Infec tive: Documented Infection< br>Documen lester Infection Site: Urine
D uration of Therapy: Other (see Comments) cefdinir 2021- No 300mg 300 mg, [facility] ers (OMNICEF) 08-01 Oral, ity of capsule 300 03:30: 02:55 ONCE, 1 [place] mg 00 :00 dose, On Medical Mon Branch 07/31/21 at 2130, SAHARA
Re ason for Anti-Infec tive: Documented Infection< br>Documen lester Infection Site: Urine
D uration of Therapy: 7 days FENTanyl PF 2021- No 50ug 50 mcg, Un ela (SUBLIMAZE 08-01 Slow IV ity o f (PF)) 01:15: 03:26 Push, [place] injection 00 :00 ONCE, 1 Medical 50 mcg dose, On Branch 07/31/21 at 1915, STAT proMETHazin 2021- No 25mg 25 mg, IV Univers e 08-01 Piggyback, ity of (PHENERGAN) 01:15: 03:26 ONCE, 1 [place] 25 mg in 00 :00 dose, On Medical NaCl 0.9% Mon Branch (NS) 50 mL 07/31/21 at piggyback 1915, 50 mL cefdinir 2021- Yes [id number] 300mg Take 1 U nivers 300 mg 07-31 capsule by ity of capsule 00:00: 05:59 mouth [place] 00 :00 every 12 Medical (twelve) Branch hours for 10 days. cefdinir 2021- No [id number] 300mg Take 1 U nivers 300 mg 07-31 capsule by ity of capsule 00:00: 00:00 mouth [place] 00 :00 every 12 Medical (twelve) Branch hours for 10 days. FENTanyl PF 2021- No 50ug 50 mcg, Un ela (SUBLIMAZE 07-30 Slow IV ity o f (PF)) 02:00: 01:19 Push, [place] injection 00 :00 ONCE, 1 Medical 50 mcg dose, On Branch 07/29/21 at 1999, Routine methocarbam 2021- No 1000mg 1,000 mg, Univers oL 07-30 Oral, ity of (ROBAXIN) 02:00: 01:19 ONCE, 1 [place] tablet 00 :00 dose, On Medical 1,000 mg Sat Branch 07/29/21 at 2000, SAHARA proMETHazin 2021- No 12.5mg 12.5 mg, Univers e 07-29 IV ity of (PHENERGAN) 22:46: 23:00 [facility] [place] 12.5 mg in 00 :00 ONCE, 1 Medica l NaCl 0.9% dose, On Branch (NS) 50 mL Sat piggyback 07/29/21 at 1700, 50 mL FENTanyl PF 2021- No 50ug 50 mcg, Un ela (SUBLIMAZE 07-29 Slow IV ity o f (PF)) 22:45: 23:00 Push, [place] injection 00 :00 ONCE, 1 Medical 50 mcg dose, On Branch 07/29/21 at 1645, Routine methocarbam Yes [id number] 1000mg Take 2 Univers oL 500 mg 1-15 tablets by ity of tablet 00:00: mouth 4 (four) Medical times Branch daily as needed for Pain (scale 1-3). methocarbam 2021-0 Yes [id number] 1000mg Take 2 Univers oL 500 mg 1-15 tablets by ity of tablet 00:00: mouth 4 (four) Medical times Branch daily as needed for Pain (scale 1-3). methocarbam 2021-0 Yes [id number] 1000mg Take 2 Univers oL 500 mg 1-15 tablets by ity of tablet 00:00: mouth 4 (four) Medical times Branch daily as needed for Pain (scale 1-3). methocarbam 2021-0 Yes [id number] 1000mg Take 2 Univers oL 500 mg 1-15 tablets by ity of tablet 00:00: mouth 4 (four) Medical times Branch daily as needed for Pain (scale 1-3). proMETHazin 2020-07 No 25mg 25 mg, IV Univers e 08-07 Piggyback, ity of (PHENERGAN) 23:15: 22:20 ONCE, 1 [place] 25 mg in 00 :00 dose, On Medical NaCl 0.9% Sat Branch (NS) 50 mL 06/07/21 piggyback at 1715, 50 mL FENTanyl PF 2020-07 No 75ug 75 mcg, Un ela (SUBLIMAZE 08-07 Slow IV ity o f (PF)) 22:15: 22:20 Push, [place] injection 00 :00 ONCE, 1 Medical 75 mcg dose, On Branch 06/07/21 at 1615, Routine fidaxomicin 2020-07 Yes [id number] 200mg Take 1 Univers 200 mg 1-24 tablet by ity of tablet 00:00: mouth 2 (two) Medical times Branch daily. proMETHazin 2020-07 Yes [id number] 25mg Take 1 Univers e 25 mg 1-24 tablet by ity of tablet 00:00: mouth 00 every 6 Medical (six) Branch hours as needed for Nausea and Vomiting (N/V). fidaxomicin 2020-07 Yes [id number] 200mg Take 1 Univers 200 mg 1-24 tablet by ity of tablet 00:00: mouth 2 (two) Medical times Branch daily. proMETHazin 2020-07 Yes [id number] 25mg Take 1 Univers e 25 mg 1-24 tablet by ity of tablet 00:00: mouth [place] 00 every 6 Medical (six) Branch hours as needed for Nausea and Vomiting (N/V). cholestyram 2020-07 Yes Univer s ine 4 gram 1-24 ity of packet 00:00: [place] 00 Medical Branch fidaxomicin 2020-07 Yes [id number] 200mg Take 1 Univers 200 mg 1-24 tablet by ity of tablet 00:00: mouth 2 00 (two) Medical times Branch daily. proMETHazin 2020-07 Yes [id number] 25mg Take 1 Univers e 25 mg 1-24 tablet by ity of tablet 00:00: mouth [place] 00 every 6 Medical (six) Branch hours as needed for Nausea and Vomiting (N/V). cholestyram 2020-07 Yes Univer s ine 4 gram 1-24 ity of packet 00:00: [place] 00 Medical Branch cholestyram 2020-07 Yes Univer s ine 4 gram 1-24 ity of packet 00:00: [place] 00 Medical Branch cholestyram 2020-07 Yes Univer s ine 4 gram 1-24 ity of packet 00:00: [place] 00 Medical Branch fidaxomicin 2020-07 Yes [id number] 200mg Take 1 Univers 200 mg 1-24 tablet by ity of tablet 00:00: mouth 2 [place] 00 (two) Medical times Branch daily. proMETHazin 2020-07 Yes [id number] 25mg Take 1 Univers e 25 mg 1-24 tablet by ity of tablet 00:00: mouth [place] 00 every 6 Medical (six) Branch hours as needed for Nausea and Vomiting (N/V). fidaxomicin 2020-07- No [id number] 200mg Take 1 Univers 200 mg 1-24 01-25 tablet by ity of tablet 00:00: 00:00 mouth 2 [place] 00 :00 (two) Medical times Branch daily. proMETHazin 2020-07- No [id number] 25mg Take 1 Univers e 25 mg 1-24 01-25 tablet by ity of tablet 00:00: 00:00 mouth [place] 00 :00 every 6 Medical (six) Branch hours as needed for Nausea and Vomiting (N/V). FENTanyl PF 2020- No 50ug 50 mcg, Un ela (SUBLIMAZE 5-10 05-10 Intravenou it y of (PF)) 02:45: 01:34 s, ONCE, 1 [place] injection 00 :00 dose, Sun Medic al 50 mcg 11/20/20 at Branch 2145, Routine cefTRIAXone 2020- No 1000mg 1,000 mg, Univers (ROCEPHIN) 5- 05-10 IV ity of 1,000 mg in 02:30: 01:55 Piggyback, [place] NaCl 0.9% 00 :00 ONCE, 1 Medical (NS) 50 mL dose, [facility] MINI-BAG 11/20/20 at 2130, 50 mL
Reas on for Anti-Infec tive: Documented Infection< br>Documen lester Infection Site: Urine
D uration of Therapy: 7 days famotidine 2020- No 20mg 20 mg, Univ ers (PEPCID 5-10 05-10 Slow IV ity of (PF)) 01:00: 00:12 Push, [place] injection 00 :00 ONCE, 1 Medical 20 mg dose, [facility] 11/20/20 at 2000, SAHARA proMETHazin 2020- No 25mg 25 mg, IV Univers e 5-10 05-10 Piggyback, ity of (PHENERGAN) 00:45: 00:11 [place]CE[place] in 00 :00 dose, [place] [facility] NaCl 0.9% 11/20/20 at [facility] h (NS) 50 mL 1945, [...] 1,000 mL 00 :00 IV Medical Infusion, [place] ONCE, 1 dose, [place] 11/20/20 at 1900, SAHARA cefdinir 2020- No [id number] 300mg Take 1 U nivers 300 mg 11-20 05-20 capsule by ity of capsule 00:00: 04:59 mouth 2 [place] 00 :00 (two) Medical times Branch daily for 10 days. 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, Duration: 30 day, Stop date: 06/21/18 5:03:00 ACADEMIC VICE PRESIDENT, 2.4, m2 Magnesium 2017-07 No Notes: Memori [...] kg, Priority: STAT, Start date: 05/22/18 4:35:00 ACADEMIC VICE PRESIDENT, Stop date: 05/22/18 4:35:00 ACADEMIC VICE PRESIDENT Citalopram Citalopram Yes Na Gamble [address] [facility] Hydrobromid Hydrobromid 7-16 L [facility]kes - e e 00:00: [facility] Seroquel Seroquel Yes Na Gamble [address] [facility] 7[facility]16 [facility] - 00:[facility] Docusate Yes 100 mg = 1 Mem oria Sodium 100 5-08 cap, PO, l MG Oral 14:56: BID, 0 [place] Capsule 00 Refill(s) Zosyn Yes 0 Memoria 5-08 Refill(s) l 14:56: [place] 00 celecoxib Yes 200 mg = 1 Me moria 200 mg oral 5-08 cap, PO, l capsule 14:56: BID, 0 [place] 00 Refill(s) ascorbic Yes 500 mg = 1 Mem oria acid 5-08 tab, PO, l 14:56: BID, 0 [place] 00 Refill(s) acetaminoph Yes 1,000 mg = [...] n 5-08 Daily, 0 l 14:56: Refill(s) [place] methocarbam Yes 1,000 mg = Memoria ol 500 mg 5-08 2 tab, PO, l oral tablet 14:56: Q8H, 0 Herm carly 00 Refill(s) LORazepam Yes 0.5 mg = 1 Me moria 0.5 mg oral 5-08 tab, PO, l tablet 14:56: Q8H, PRN [place] 00 Anxiety, 0 Refill(s) Lidocaine Yes 3 patch, Erwin benjamin Hydrochlori 5-08 TOP, l de 0.05 14:56: Daily, Jason MG/MG 00 Remove Transdermal after 12 Patch hours, 0 [Lidoderm] Refill(s) Robaxin No Notes: Memoria 5-06 (Same l 21:00: as:Robaxin [place] ) Oxycodone No Notes: Memori a Hydrochlori [...] 5-04 not give l 22:40: IV push. [place] 00 (Same as: Phenergan) Dilaudid No Notes: Memoria 5-04 Same as l 22:40: Dilaudid [place] 00 Tramadol No Notes: Not Mem oria 5-04 to exceed l 22:00: 400mg/day. Jason 00 (Same As: Ultram) gabapentin No Notes: Memor ia 5-04 (Same as: l 22:00: Neurontin) Jason 00 Acetaminoph No Notes: Max Memoria en 5-04 acetaminop l 22:00: hen 4000 Jason 00 mg/day (4 gm/day). (Same as: Tylenol Extra Strength) Robaxin No Notes: Memoria 5-04 (Same l 22:00: as:Robaxin [place] 00 ) Oxycodone No Notes: Memori a Hydrochlori 5-04 (Same as: l de 5 MG 21:33: Roxicodone Herm carly Oral Tablet 00 ) Beneprotein No Notes: Erwin benjamin 7 gm pkt 5-04 (Same as: l 21:30: Beneprotei n) Acetaminoph No 1 tab, PO, Memoria en 325 MG / 5-04 TID, 0 l Oxycodone 17:12: Refill(s) Her jovany Hydrochlori 00 de 10 MG Oral Tablet [Percocet 10/325] Dilaudid No 0.5 mg, Memori a 5-04 0.25 mL, l 16:01: Route: IVP, Drug form: INJ, ONCE, Start date: 11/15/17 11:01:00 CDT, Stop date: 11/15/17 11:01:00 CDT Phenergan No Notes: Memori a 11-15 (Same as: l 15:43: Phenergan) Dilaudid No 2 mg, Memoria 5-04 Route: l 15:43: IVP, ONCE, Dosing Weight 127.027, kg, Priority: STAT, Start date: 11/15/17 10:43:00 CDT, Stop date: 11/15/17 10:43:00 CDT Docusate No Notes: Memoria - (Same as: l 14:00: Colace) (Do Not Crush) Zinc No Notes: Memoria Sulfate 11-15 (Zinc l 14:00: sulfate capsule) - 220 mg Zinc sulfate = 50 mg elemental zinc Same as Zinc Sulfate ascorbic No Notes: Memoria acid - (Same as: l 14:00: Vitamin C) multivitami No Notes: Erwin benjamin n 11-15 (Same l 14:00: as:Thera) WASTE: F/P - [...] moria 5-04 infuse l 07:00: over 2.5 Jason 00 hours For adult patients only: Round to nearest 250 mg per Medical Staff approval MEDICATION WASTE Product Size: 1000 mg Product Wasted: ___ mg Enoxaparin No Notes: Memor ia 5-04 (Same as: l 07:00: Lovenox) [place] 00 Sodium No 1,000 mL, Memori a Chloride 11-15 Rate: 125 l 0.9% IV 06:46: ml/hr, [place] 1,000 mL 00 Infuse over: 8 hr, Route: IV, Dosing Weight 127.27 kg, Total Volume: 1,000, Start date: 11/15/17 1:46:00 CDT, Duration: 30 day, Stop date: 12/15/17 1:45:00 CDT, 2.44, m2 Saline No Notes: Memoria Flush 0.9% 11-15 (Same as: l 06:46: BD Jason Posiflush) Acetaminoph No Notes: Do M emoria en -04 not exceed l 06:46: 4 gm/day. [place] (Same as: Tylenol) Acetaminoph No Notes: Erwin benjamin en 325 MG / 5- (Same as: l Hydrocodone 06:46: Stanton Kristen nn Bitartrate 00 325/5) Do 5 MG Oral not exceed Tablet 4gm/day of acetaminop hen. Reglan No Notes: Memoria 5-04 (Same as: l 04:27: Reglan) Jason 00 Benadryl No Notes: Memoria 5-04 (Same as: l 04:27: Benadryl) [place] Magnesium No Notes: Memori a Sulfate 11-15 WASTE: F/P l 04:26: - Sink; E [place] - Municipal Trash Bin Sodium No 1,000 mL, Memori a Chloride 5-04 1000 l 0.9% 04:26: ml/hr, Jason (Bolus) IV 00 Infuse Over: 1 hr, Route: IV, 1,000, Drug form: INJ, ONCE, Priority: STAT, Dosing Weight 127.273 kg, Start date: 11/14/17 23:26:00 CDT, Stop date: 11/14/17 23:26:00 CDT Zosyn No 4.5 gm, Memoria 11-15 Route: l 04:10: IVPB, [place] 00 ONCE, Dosing Weight 127.273, kg, Priority: [...] Memoria 11-15 (Same As: l 02:21: Rocephin). [place] 00 MEDICATION WASTE Product Size: 1000 mg Product Wasted: _0__ mg Morphine No 4 mg, Memoria 11-15 Route: l 00:05: IVP, ONCE, Dosing Weight 127.273, kg, Priority: STAT, Start date: 11/14/17 19:05:00 CDT, Stop date: 11/14/17 19:05:00 CDT Benadryl No Notes: Memoria 11-14 (Same as: l 23:14: Benadryl) [place] Benadryl No Notes: Memoria 5-03 (Same as: l 22:56: Benadryl) Morphine 2018-0 No 4 mg, 1 Memori a 5-03 mL, Route: l 22:56: IVP, Drug form: SOLN, ONCE, Dosing Weight 127.273, kg, Priority: STAT, Start date: 11/14/17 17:56:00 CDT, Stop date: 11/14/17 17:56:00 CDT OXYCODONE 2016-07 Yes Take by Univ ers HCL/ACETAMI 2-20 mouth. ity of NOPHEN 10:03: [place] (PERCOCET 17 Medical ORAL) [place] OXYCODONE 2016-07 Yes Take by Univ ers HCL/ACETAMI 2-20 mouth. ity of NOPHEN 04:03: [place] (PERCOCET 17 Medical ORAL) [place] OXYCODONE 2016-07 Yes Take by Univ ers HCL/ACETAMI 2-20 mouth. ity of NOPHEN 04:03: [place] (PERCOCET 17 Medical ORAL) Branch OXYCODONE 2016-07 Yes Take by Univ ers HCL/ACETAMI 2-20 mouth. ity of NOPHEN 04:03: [place] (PERCOCET 17 Medical ORAL) [place] OXYCODONE 2016-07 Yes Take by Univ ers HCL/ACETAMI 2-20 mouth. ity of NOPHEN 04:03: [place] (PERCOCET 17 Medical ORAL) [place] dicyclomine 2016-07 Yes 20mg Take 1 Univ ers (BENTYL) 20 2-20 tablet by ity of mg tablet 00:00: mouth 4 [place] 00 (four) Medical times Branch daily. proMETHazin 2016-07 Yes 25mg Take 1 Univ ers e 25 mg 2-20 tablet by ity of tablet 00:00: mouth [place] 00 every 6 Medical (six) Branch hours as needed for Nausea and Vomiting (N/V). proMETHazin 2016-07 Yes 25mg Take 1 Univ ers e 25 mg 2-20 tablet by ity of tablet 00:00: mouth [place] 00 every 6 Medical (six) Branch hours as needed for Nausea and Vomiting (N/V). proMETHazin 2016-07 Yes 25mg Take 1 Univ ers e 25 mg 2-20 tablet by ity of tablet 00:00: mouth [place] 00 every 6 Medical (six) Branch hours as needed for Nausea and Vomiting (N/V). dicyclomine 2016- Yes 20mg Take 1 Univ ers (BENTYL) 20 2-20 tablet by ity of mg tablet 00:00: mouth 4 [place] 00 (four) Medical times Branch daily. proMETHazin 2016-07 Yes 25mg Take 1 Univ ers e 25 mg 2-20 tablet by ity of tablet 00:00: mouth [place] 00 every 6 Medical (six) Branch hours as needed for Nausea and Vomiting (N/V). dicyclomine 2016- Yes 20mg Take 1 Univ ers (BENTYL) 20 2-20 tablet by ity of mg tablet 00:00: mouth 4 [place] 00 (four) Medical times Branch daily. proMETHazin 2016- Yes 25mg Take 1 Univ ers e 25 mg 2-20 tablet by ity of tablet 00:00: mouth [place] 00 every 6 Medical (six) Branch hours as needed for Nausea and Vomiting (N/V). proMETHazin 2016-07- No 25mg Take 1 Uni vers e 25 mg 2-20 01-25 tablet by ity of tablet 00:00: 00:00 mouth [place] 00 :00 every 6 Medical (six) Branch hours as needed for Nausea and Vomiting (N/V). dicyclomine 2016-07- No 20mg Take 1 Uni vers (BENTYL) 20 2-20 01-15 tablet by it y of mg tablet 00:00: 00:00 mouth 4 [place] :[place] (four) Medical times Branch daily. proMETHazin 2016-0 Yes 25mg Take 1 Univ ers e 25 mg 1-04 tablet by ity of tablet 00:00: mouth [place] 00 every 6 Medical (six) Branch hours as needed for Nausea and Vomiting (N/V) for up to 12 doses. proMETHazin 2017-0 Yes 25mg Take 1 Univ ers e 25 mg 1-04 tablet by ity of tablet 00:00: mouth [place] 00 every 6 Medical (six) Branch hours as needed for Nausea and Vomiting (N/V) for up to 12 doses. proMETHazin 2017-0 Yes 25mg Take 1 Univ ers e 25 mg 1-04 tablet by ity of tablet 00:00: mouth [place] 00 every 6 Medical (six) Branch hours as needed for Nausea and Vomiting (N/V) for up to 12 doses. proMETHazin 2017-0 Yes 25mg Take 1 Univ ers e 25 mg 1-04 tablet by ity of tablet 00:00: mouth [place] 00 every 6 Medical (six) Branch hours as needed for Nausea and Vomiting (N/V) for up to 12 doses. proMETHazin 2017-0 Yes 25mg Take 1 Univ ers e 25 mg 1-04 tablet by ity of tablet 00:00: mouth [place] 00 every 6 Medical (six) Branch hours as needed for Nausea and Vomiting (N/V) for up to 12 doses. proMETHazin 2017-0 Yes 25mg Take 1 Univ ers e 25 mg 1-04 tablet by ity of tablet 00:00: mouth [place] 00 every 6 Medical (six) Branch hours as needed for Nausea and Vomiting (N/V) for up to 12 doses. proMETHazin 2017-0 Yes 25mg Take 1 Univ ers e 25 mg 1-04 tablet by ity of tablet 00:00: mouth [place] 00 every 6 Medical (six) Branch hours as needed for Nausea and Vomiting (N/V) for up to 12 doses. Tylenol Tylenol Yes Na Gamble [address] [facility] with as needed [facility] - Codeine #4 Codeine #4 Mem oria l [facility] ent Clinics Macrobid Macrobid Yes Na Gamble [address] [facility] with food [facility] - Memoria l [facility] Pantoprazol Pantoprazol Yes Na Gamble [address] [facility] [facility] e Sodium e Sodium [facility] - Memoria l [facility]ics Collagenase Collagenase Yes Na Gamble [address] [facility] applicatio [facility] - n to Memoria affected l area [facility] ent Clinics Vital Signs Vital Name Observation Time Observation Value Comments Source Systolic blood 2021-08-08 21:53:00 142 mm[facility] [place] Diastolic blood 2021-08-08 21:53:00 88 mm[Hg] [facility] Heart rate 2021-08-08 21:53:00 96 /min [facility] Body temperature 2021-08-08 21:53:00 36.06 Abi [facility] Respiratory rate 2021-08-08 21:53:00 18 /min [facility] Oxygen saturation in 2021-08-08 21:53:00 96 /min [facility] Arterial blood by [facility] Pulse oximetry Branch Body weight 2021-08-08 09:48:00 138.801 kg [facility] [place] [facility] BMI 2021-08-08 09:48:00 61.80 kg/m2 [facility] [place] [facility] Body height 2021-08-03 10:27:00 149.9 cm [facility] [place] [facility] Systolic blood 2021-08-01 03:50:00 142 mm[Hg] Univer sity of pressure [place] [facility] Diastolic blood 2021-08-01 03:50:00 95 mm[Hg] Unive rsity of pressure [place] [facility] Heart rate 2021-08-01 03:50:00 93 /min [facility] [place] [facility] Respiratory rate 2021-08-01 03:50:00 17 /min Univ ersity [facility] [place] [facility] Oxygen saturation in 2021-08-01 03:50:00 98 /min University of Arterial blood by [place] [employer] e[facility]ani Pulse oximetry Branch Body temperature 2021-07-31 20:39:00 36.5 Abi [facility] ers[facility] [place] [facility] Body weight 2021-07-31 20:39:00 136.079 kg [facility] [place] [facility] BMI 2021-07-31 20:39:00 60.59 kg/m2 [facility] [place] [facility] Systolic blood 2021-07-30 01:46:00 134 mm[Hg] Univer sity of pressure [place] [facility] Diastolic blood 2021-07-30 01:46:00 100 mm[Hg] Unive rsity of pressure [place] [facility] Heart rate 2021-07-30 01:46:00 102 /min [facility] [place] [facility] Respiratory rate 2021-07-30 01:46:00 22 /min [facility] ers[facility] [place] [facility] Oxygen saturation in 2021-07-30 01:46:00 96 /min University of Arterial blood by [place] [facility]i efrain Pulse oximetry Branch Body temperature 2021-07-29 20:52:00 36.67 Abi [facility] ers[facility] [place] [facility] Body weight 2021-07-29 20:52:00 136.079 kg [facility] [place] [facility] BMI 2021-07-29 20:52:00 60.59 kg/m2 [facility] [place] [facility] Systolic blood 2021-06-07 23:30:00 175 mm[Hg] Univer sity of pressure [place] [facility] Diastolic blood 2021-06-07 23:30:00 107 mm[Hg] Unive rsity of pressure [place] [facility] Heart rate 2021-06-07 23:30:00 81 /min [facility] [place] [facility] Respiratory rate 2021-06-07 23:30:00 21 /min [facility] ers[facility] [place] [facility] Oxygen saturation in 2021-06-07 23:30:00 97 /min University of Arterial blood by [facility] Pulse oximetry Branch Body weight 2021-06-07 21:55:00 136.079 kg [facility] [place] [facility] BMI 2021-06-07 21:55:00 60.59 kg/m2 [facility] [place] [facility] Body temperature 2021-06-07 21:55:00 37.44 Abi Univ ers[facility] [place] [facility] Systolic blood 2020-11-21 01:30:00 163 mm[Hg] Univer sity of pressure [place] [facility] Diastolic blood 2020-11-21 01:30:00 106 mm[Hg] Unive rsity of pressure [place] [facility] Heart rate 2020-11-21 01:30:00 97 /min [facility] [place] [facility] Respiratory rate 2020-11-21 01:30:00 21 /min Univ ers[facility] [place] [facility] Oxygen saturation in 2020-11-21 01:30:00 97 /min University of Arterial blood by [facility] Pulse oximetry Branch Body temperature 2020-11-20 23:27:00 36.83 Abi Univ ers[facility] [place] [facility] Body height 2020-11-20 23:27:00 149.9 cm [facility] [place] [facility] Body weight 2020-11-20 23:27:00 136.079 kg [facility] [place] [facility] BMI 2020-11-20 23:27:00 60.59 kg/m2 [facility] [place] [facility] Systolic blood 2020-11-21 01:30:00 163 mm[Hg] Univer sity of pressure [place] [facility] Diastolic blood 2020-11-21 01:30:00 106 mm[Hg] Unive rsity of pressure [place] [facility] Heart rate 2020-11-21 01:30:00 97 /min [facility] [place] [facility] Respiratory rate 2020-11-21 01:30:00 21 /min Univ ers[facility] [place] [facility] Oxygen saturation in 2020-11-21 01:30:00 97 /min University of Arterial blood by [facility] Pulse oximetry [place] Body temperature 2020-11-20 23:27:00 36.83 Abi [facility] Body height 2020-11-20 23:27:00 149.9 cm [facility] Body weight 2020-11-20 23:27:00 136.079 kg [facility] BMI 2020-11-20 23:27:00 60.59 kg/m2 [facility] Respitory Rate 2018-05-22 17:30:00 Memori al Jason Systolic (mm Hg) 2018-05-22 17:30:00 Erwin rial Jason Diastolic (mm Hg) 2018-05-22 17:30:00 Mem orial [place] Temperature Oral (F) 2018-05-22 17:30:00 98.4 F [facility] [place] Temperature Oral (F) 2018-05-22 16:23:00 98.6 F [facility] [place] Systolic (mm Hg) 2018-05-22 16:23:00 Erwin rial [place] Diastolic (mm Hg) 2018-05-22 16:23:00 Mem orial Jason Respitory Rate 2018-05-22 14:00:00 Memori al [place] Systolic (mm Hg) 2018-05-22 14:00:00 Erwin rial Jason Diastolic (mm Hg) 2018-05-22 14:00:00 Mem orial Jason Respitory Rate 2018-05-22 13:30:00 Memori al Jason BMI Calculated 2018-05-22 10:16:00 Memori al [place] Height 2018-05-22 10:16:00 149.86 cm [facility] [place] Weight 2018-05-22 10:16:00 Memorial [place] Heart Rate 2018-05-22 10:16:00 Memorial Jason Temperature Oral (F) 2018-05-22 10:16:00 97.9 F [facility] Temperature Oral (F) 2017-11-19 13:40:00 97.2 F [facility] [place] Systolic (mm Hg) 2017-11-19 13:40:00 Erwin rial Jason Diastolic (mm Hg) 2017-11-19 13:40:00 Mem orial Jason Heart Rate 2017-11-19 13:40:00 [facility] [place] Respitory Rate 2017-11-19 13:40:00 Memori al Jason Heart Rate 2017-11-19 05:24:00 [facility] [place] Systolic (mm Hg) 2017-11-19 05:24:00 Erwin rial [place] Diastolic (mm Hg) 2017-11-19 05:24:00 Mem orial Jason Respitory Rate 2017-11-19 05:24:00 Memori al Jason Temperature Oral (F) 2017-11-19 05:24:00 98.1 F [facility] [place] Respitory Rate 2017-11-19 01:15:00 Memori al [place] Systolic (mm Hg) 2017-11-19 01:15:00 Erwin rial Jason Diastolic (mm Hg) 2017-11-19 01:15:00 Mem orial [place] Heart Rate 2017-11-19 01:15:00 [facility] [place] Temperature Oral (F) 2017-11-19 01:15:00 98.1 F [facility] [place] Weight 2017-11-18 14:00:00 [facility] Jason Weight 2017-11-17 14:00:00 [facility] [place] Weight 2017-11-15 14:00:00 [facility] [place] BMI Calculated 2017-11-15 05:43:00 Memori al [place] Height 2017-11-15 05:43:00 162.56 cm [facility] [place] Height 2017-11-14 22:41:00 149.86 cm Memorial Jason BMI Calculated 2017-11-14 22:41:00 Memori al Jason Procedures Procedure Date / Time Performing Clinician Source Performed XR CHEST 1 VW 2021-08-07 03:03:32 Jeffry Lagos [facility] COMP. METABOLIC PANEL 2021-08-06 11:57:00 [facility] ([id number]) Medical Branch CBC WITH DIFF 2021-08-06 11:57:00 [facility] BASIC METABOLIC PANEL (NA, 2021-08-04 12:10[facility], CO2, GLUCOSE, BUN, Medica l Branch CREATININE, CA) CBC WITH DIFF 2021-08-04 12:09[facility] 2021-[facility]-04 00:40:00 Hanh Gunter [facility] URINE CULTURE 2021-08-04 00:40:00 Hanh Gunter [facility] FECES CULTURE 2021-08-03 14:58:00 [facility] OCCULT (GUAIAC) BLOOD 2021-08-03 14:58:00 [facility]LO[facility] DIFFICILE 2021-08-03 14:58:00 [facility] FECAL PATHOGENS BY PCR 2021-08-03 14:58:00 [facility] (IMMUNOASSAY) - 2021-08-03 10:11:00 May Brambila [facility] COMPREHENSIVE DRUG SCREEN Medica Branch COVID-19 (ID NOW RAPID 2021-08-03 07:33:00 Carmelita Serna [facility] TESTING) Medical [place] LAB ONLY COVID 2021-08-03 07:33:00 Carmelita Serna [facility] INTERPRETATION [facility] COMP. METABOLIC PANEL 2021-08-03 06:18:00 Carmelita Serna [facility] ([id number]) [facility] CBC WITH DIFF 2021-08-03 05:40:00 Carmelita Serna [facility] [place] URINALYSIS 2021-08-01 01:43:00 Stephanie Balderrama [facility] [place] LIPASE 2021-08-01 01:40:00 Stephanie Balderrama [facility] [place] COMP. METABOLIC PANEL 2021-08-01 01:40:00 Stephanie Balderrama [facility] ([id number]) [facility] CBC WITH DIFF 2021-08-01 01:38:00 Stephanie Balderrama [facility] [place] XR CHEST 1 VW 2021-07-31 23:40:19 Stephanie Balderrama [facility] [place] ASSIGNMENT OF BENEFITS 2021-07-31 22:05:40 Doctor Unassigned, [facility] [place] [facility] NOTICE OF PRIVACY 2021-07-31 22:04:58 Doctor Unassigned, [facility] PRACTICES [place] [facility] [place] CONSENT/REFUSAL FOR 2021-07-31 22:04:33 Doctor Unassmacrina, [facility] DIAGNOSIS AND TREATMENT [place] [facility] URINALYSIS 2021-07-29 23:09:00 Lynette Fonseca [facility] [place] BLOOD CULTURE SCREEN 2021-07-29 23:04:00 Lynette Fonseca [facility] D-DIMER 2021-07-29 22:49:00 Lynette Fonseca [facility] [place] COVID-19 (ID NOW RAPID 2021-07-29 22:48:00 Lynette Fonseca [facility] TESTING) Medical Branch COMP. METABOLIC PANEL 2021-07-29 22:17:00 Lynette Fonseca [facility] ([id number]) Medical Branch CBC WITH DIFF 2021-07-29 22:17:00 Lynette Fonseca [facility] [place] XR CHEST 1 VW 2021-07-29 21:47:19 Lynette Fonseca [facility] [place] COMP. METABOLIC PANEL 2021-06-07 22:20:00 [place] [facility] ([id number]) Medical Branch CBC WITH DIFF 2021-06-07 22:20:00 [place] [facility] [place] CT ABDOMEN PELVIS WO 2020-11-21 00:39:40 Brittany Saunders [facility] CONTRAST Medical Branch LIPASE 2020-11-21 00:06:00 Brittany Saunders [facility] COMP. 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 Plan of Care Planned Activity Planned Date Details Comments Source Future Scheduled 2022-07-[address] [facility]00 (procedure) [code = Medical Center [id number]] Future Scheduled 2021-03-[address] [facility] - Test 00:00:00 (Season Ended) [code = Medic al Center INFLUENZA VACCINE (Season Ended)] Future Scheduled 2020-07-[address] [facility] - Test 00:00:00 (12+) [code = Medical Center DEPRESSION SCREENING (12+)] Future Scheduled 2019-10-[address] [facility] - Test 00:[facility]:00 measurement Medical Center (procedure) [code = 07468560] Future Scheduled 2004 DTAP/TDAP/TD VACCINES CH I [...] 00:00:00 protein (procedure) Medical Center [code = 822828233] Future Scheduled [address] [facility] - Test 00:00:00 0-64 YRS (1 of 1 - Medical C enter PPSV23) [code = PNEUMOCOCCAL VACCINE 0-64 YRS (1 of 1 - PPSV23)] Encounters Start End Encounter Admission Attending Care Care Encounter Source Date/Time Date/Time Type Type Clinicians Facility Department ID 2021-08-09 Outpatient AQUILES Marc [facility] [id number] [facility] 13:45:16 Eren [id number] [facility] 2021-08-09 [facility] 13:[facility] Eren [id number] [facility] 2021-08-09 Outpatient [facility] 13:16:34 Eren [id number] [facility] 2021-08-09 2021-08-09 Transition DEVANTE Zepeda 1.2.840.114 [id number] [facility] 00:00:00 00:00:00 of Care Kamila STEVENSY [id number] ity [facility] 4.2.7.2.686 [facility] [phone] [facility] 403 Branch 2021-08-02 2021-08-08 Inpatient X [facility] [id number] Univers 19:07:00 19:39:00 [facility] 2021-08-02 2021-08-08 [facility] 1.2.840. 114 [id number] Univers 19:07:00 19:39:00 Encounter JacobtutuMay yun 350.1.13.10 ity [facility] 4.2.7.2.686 [facility] [phone] [place] 029141 Branch 2021-07-31 2021-07-31 [facility] [id number] Univers 14:41:00 22:07:00 STEPHANIE saba [facility] 2021-07-31 2021-07-31 [facility] [id number] Univers 14:41:00 22:07:00 Stephanie DURAN 350.1.13.10 ity [facility] 4.2.7.2.686 [facility] [phone] [place] 029144 Branch 2021-07-29 2021-07-29 Emergency [facility] [id number] Univers 14:49:00 21:33:00 LYNETTE saba [facility] 2021-07-29 2021-07-29 Emergency [facility] [id number] Univers 14:49:00 21:33:00 Lynette DURAN 350.1.13.10 ity of [place] 4.2.7.2.686 [facility] [id number] [address] 2021-07-11 2021-07-11 Laboratory Only, Ang Db Test [facility] 1.2.8 40.114 [id number] Univers 18:00:00 18:15:00 Only Sierra Lundberg [facility] 350.1.13.10 ity of [place] 4.2.7.2.686 Tim as VICENTA?BLEA [phone] [address] MEDICAL OFFICE BUILDING 2021-07-11 2021-07-11 Outpatient R [facility] [id number] Univers 18:00:00 18:00:00 SIERRA [facility] 2021-07-05 2021-07-05 ambulatory [facility]LMLC [facility] [id number] [facility] 2021-07-04 2021-07-04 ambulatory [facility]LMLC [facility] [id number] [facility] 2021-06-07 2021-06-07 Emergency X , [facility] ERT [id number] Univers 15:54:00 18:34:00 SIDNEY lizet [facility] 2021-06-07 2021-06-07 [facility] [id number] Univers 15:54:00 18:34:00 Sidney DURAN 350.1.13.10 i ty [facility] 4.2.7.2.686 [facility] [id number] [address] 2021-04-25 2021-04-25 Outpatient STLMLC [facility] [id number] [facility] 2021-04-11 2021-04-11 Outpatient STLMLC [facility] [id number] [facility] 2021-02-21 2021-02-21 Outpatient STLMLC [facility] [id number] [facility] 2021-01-31 2021-01-31 Outpatient [facility] [id number] [facility] 2021-01-03 2021-01-03 Outpatient [facility] [id number] [facility] 2020-11-20 2020-11-20 Emergency [facility] 1.2.840.114 [id number] 18:22:00 22:21:00 Brittany Trujillo [place] 350.1.13.10 [place] 4.2.7.2.686 [place] [id number] [facility] 2020-11-20 2020-11-20 Emergency [facility] 1.2.840.114 [id number] [facility] 18:22:00 22:21:00 Brittany Moraton 350.1.13.10 [facility]Day [facility] 4.2.7.2.686 [facility] [id number] [address] 2020-11-20 2020-11-20 Emergency X [facility] ERT [id number] Univers 18:22:00 18:22:00 BRITTANY ity [facility] 2019-03-02 2019-03-04 Phone nullFlavo MNA [id number] Memoria 16:11:26 04:59:59 Message r Neurosurger 08 l y [facility] 2019-02-10 2019-02-12 Phone nullFlavo MNA [id number] 55 Memoria 16:16:47 04:59:59 Message r Neurosurger 07 l y [facility] 2019-01-26 2019-01-28 Phone nullFlavo MNA [id number] 55 Memoria 15:52:03 04:59:59 Message r Neurosurger 06 l y [facility] 2019-01-01 2019-01-03 Phone nullFlavo MNA [id number] 55 Memoria 18:55:03 04:59:59 Message r Neurosurger 05 l y [facility] 2018-05-22 2018-05-22 Emergency [facility] [id number] [facility] 10:12:00 18:24:00 r Sayner 12 l [facility] 2018-02-18 2018-02-18 [facility] [id number] 11:15:00 11:15:00 t [place] - In[facility]Room [facility] Outpati ent Clinics 2018-01-27 2018-01-27 [facility] [id number] 11:30:00 11:30:00 t Alvo WooMe s - Drive [facility] Outpati ent Clinics 2018-01-03 2018-01-03 [facility] [id number] 15:41:00 15:41:00 t Alvo WooMe s - [facility] 2017-12-23 2017-12-23 [facility] [id number] 15:42:00 15:42:00 t Alvo Woo[place] s - [facility] Outpati ent Clinics 2017-12-17 2017-12-17 [facility] [id number] 11:00:00 11:00:00 t Alvo Woo[place] s - [facility] Outpati ent Clinics 2017-11-14 2017-11-19 Inpatient [facility] [id number] [facility] 22:40:00 17:28:00 [facility] 23 [facility] Results Test Description Test Time Test Comments Results Result Comments Source COMP. METABOLIC PANEL ([id number]) 2021-08-06 12:48:40 Test Item Value Reference Range Interpretation Comme nts NA (test code = 8855679191) 137 mmol/L 135-145 K (test code = 0872617629) 4.5 mmol/L 3.5-5.0 CL (test code = 5262834794) 107 mmol/L 98-108 CO2 TOTAL (test code = 7275385248) 24 mmol/L 23-31 AGAP (test code = 9613591289) 2-16 BUN (test code = 4858790374) 16 mg/dL 7-23 GLUCOSE (test code = 2098161239) 116 mg/dL 70-110 H CREATININE (test code = 0.62 mg/dL 0.60-1.25 8675051139) TOTAL BILI (test code = 0.4 mg/dL 0.1-1.3 3006807851) CALCIUM (test code = 3639250643) 8.7 mg/dL 8.6-10.6 T PROTEIN (test code = 9980381484) 7.5 g/dL 6.3-8.2 ALBUMIN (test code = 5738173441) 3.9 g/dL 3.5-5.0 ALK PHOS (test code = 8221128422) 93 U/L 34-122 ALTv (test code = 1742-6) 40 U/L 5-50 AST(SGOT) (test code = 7018153999) 51 U/L 13-40 H eGFR (test code = 6713436467) mL/min/1.73m2 ARPITA (test code = ARPITA) Association of Glomerular Filtration Rate (GFR) and Staging of Kidney Disease* + +-------- + ------+| GFR (mL/min/1.73 m2) ?| With Kidney Damage ?| ?Without Kidney Damage+ +-- + +| ?>90 ?| ?Stage one ?| ? Normal ?+ +------- + -------+| ?60-89 ?| ?Stage two ?| ? Decreased GFR ? + +-------- + ------+| ?30-59 ?| ?Stage three ?| ? Stage three ? + +-------- + ------+| ?15-29 ?| ?Stage four ? | ? Stage four ?+ +------- + -------+| ?<15 (or dialysis) ? ?| ?Stage five ? | ? Stage five ?+ +------- + -------+ *Each stage assumes the associated GFR [...] or abnormalities in imaging tests). Lab Interpretation (test code = Abnormal 49570-5) [facility] WITH [id number] 12:21:36 Test Item Value Reference Range Interpretation Comments WBC (test code = See_Comment [Automated 6690-2) message] The sy stem which generated this result transmitted reference range : 4.20 - 10.70 10*3/?L. The reference range was not used to interpret this result as normal/abnormal . RBC (test code = See_Comment [Automated 789-8) message] The sy stem which generated this result transmitted reference range : 4.26 - 5.52 10*6/?L. The reference range was not used to interpret this result as normal/abnormal . HGB (test code = 15.7 g/dL 12.2-16.4 718-7) HCT (test code = 48.0 % 38.4-49.3 4544-3) MCV (test code = 90.1 fL 81.7-95.6 787-2) MCH (test code = 29.5 pg 26.1-32.7 785-6) MCHC (test code = 32.7 g/dL 31.2-35.0 786-4) RDW-SD (test code = 50.6 fL 38.5-51.6 67970-6) RDW-CV (test code = 15.3 % 12.1-15.4 788-0) PLT (test code = See_Comment H [Automated 777-3) message] The sy stem which generated this result transmitted reference range : 150 - 328 10*3/ ?L. The reference r boubacar was not used to interpret this result as normal/abnormal . MPV (test code = 10.3 fL 9.8-13.0 38744-3) NRBC/100 WBC (test See_Comment [Automat ed code = 9761274090) message] The system which generated this result transmitted reference range : 0.0 - 10.0 /100 WBCs. The refer ence range was not u sed to interpret th is result as normal/abnormal . NRBC x10^3 (test code <0.01 See_Comment [Auto mated = 8833485424) message] The s ystem which generated this result transmitted reference range : 10*3/?L. The reference range was not used to interpret this result as normal/abnormal . GRAN MAT (NEUT) % 61.5 % (test code = 770-8) IMM GRAN % (test code 0.80 % = 9561580679) LYMPH % (test code = 27.8 % 736-9) MONO % (test code = 6.9 % 5905-5) EOS % (test code = 2.4 % 713-8) BASO % (test code = 0.6 % 706-2) GRAN MAT x10^3(ANC) 6.07 10*3/uL 1.99-6.95 (test code = 6745722171) IMM GRAN x10^3 (test 0.08 10*3/uL 0.00-0.06 H code = 7965996040) LYMPH x10^3 (test code 2.75 10*3/uL 1.09-3.23 = 731-0) MONO x10^3 (test code 0.68 10*3/uL 0.36-1.02 = 742-7) EOS x10^3 (test code = 0.24 10*3/uL 0.06-0.53 711-2) BASO x10^3 (test code 0.06 10*3/uL 0.01-0.09 = 704-7) Lab Interpretation Abnormal (test code = 17171-9) [facility] Metabolic Panel (NA, K, CL, CO2, GLUCOSE, BUN, CREATININE, CA)2021-08-04 12:40:30 Test Item Value Reference Range Interpretation Comments NA (test code = 139 mmol/L 135-145 6797473808) K (test code = 3.9 mmol/L 3.5-5.0 9646940040) CL (test code = 108 mmol/L 98-108 4088565909) CO2 TOTAL (test code = 25 mmol/L 23-31 7624631987) AGAP (test code = 2-16 0168990976) BUN (test code = 14 mg/dL 7-23 5022552188) GLUCOSE (test code = 107 mg/dL 70-110 7463396124) CREATININE (test code = 0.61 mg/dL 0.60-1.25 5019638751) CALCIUM (test code = 8.1 mg/dL 8.6-10.6 L 9906431513) eGFR (test code = mL/min/1.73m2 6506919793) ARPITA (test code = ARPITA) Association of [...] tests). Lab Interpretation Abnormal (test code = 97696-8) [facility] with [id number] 12:23:51 Test Item Value Reference Range Interpretation Comments WBC (test code = See_Comment [Automated 8449-2) message] The sy stem which generated this result transmitted reference range : 4.20 - 10.70 10*3/?L. The reference range was not used to interpret this result as normal/abnormal . RBC (test code = See_Comment [Automated 647-8) message] The sy stem which generated this result transmitted reference range : 4.26 - 5.52 10*6/?L. The reference range was not used to interpret this result as normal/abnormal . HGB (test code = 14.9 g/dL 12.2-16.4 718-7) HCT (test code = 44.2 % 38.4-49.3 4544-3) MCV (test code = 88.4 fL 81.7-95.6 787-2) MCH (test code = 29.8 pg 26.1-32.7 785-6) MCHC (test code = 33.7 g/dL 31.2-35.0 786-4) RDW-SD (test code = 49.3 fL 38.5-51.6 18448-4) RDW-CV (test code = 15.3 % 12.1-15.4 788-0) PLT (test code = See_Comment H [Automated 777-3) message] The sy stem which generated this result transmitted reference range : 150 - 328 10*3/ ?L. The reference r boubacar was not used to interpret this result as normal/abnormal . MPV (test code = 10.2 fL 9.8-13.0 43922-7) NRBC/100 WBC (test See_Comment [Automat ed code = 9654354459) message] The system which generated this result transmitted reference range : 0.0 - 10.0 /100 WBCs. The refer ence range was not u sed to interpret th is result as normal/abnormal . NRBC x10^3 (test code <0.01 See_Comment [Auto mated = 5114111334) message] The s ystem which generated this result transmitted reference range : 10*3/?L. The reference range was not used to interpret this result as normal/abnormal . GRAN MAT (NEUT) % 56.7 % (test code = 770-8) IMM GRAN % (test code 0.60 % = 9890676191) LYMPH % (test code = 31.1 % 736-9) MONO % (test code = 8.7 % 5905-5) EOS % (test code = 2.4 % 713-8) BASO % (test code = 0.5 % 706-2) GRAN MAT x10^3(ANC) 4.83 10*3/uL 1.99-6.95 (test code = 8652313912) IMM GRAN x10^3 (test 0.05 10*3/uL 0.00-0.06 code = 0237447733) LYMPH x10^3 (test code 2.64 10*3/uL 1.09-3.23 = 731-0) MONO x10^3 (test code 0.74 10*3/uL 0.36-1.02 = 742-7) EOS x10^3 (test code = 0.20 10*3/uL 0.06-0.53 711-2) BASO x10^3 (test code 0.04 10*3/uL 0.01-0.09 = 704-7) Lab Interpretation Abnormal (test code = 74946-9) [facility]. METABOLIC PANEL (05247)2021-08-03 06:32:14 Test Item Value Reference Range Interpretation Comments NA (test code = 139 mmol/L 135-145 9045902318) K (test code = 4.5 mmol/L 3.5-5.0 1221927814) CL (test code = 102 mmol/L 98-108 2821658468) CO2 TOTAL (test code = 26 mmol/L 23-31 5258703137) AGAP (test code = 2-16 7317162139) BUN (test code = 16 mg/dL 7-23 0407475190) GLUCOSE (test code = 99 mg/dL 70-110 4949475050) CREATININE (test code = 0.83 mg/dL 0.60-1.25 3600842704) TOTAL BILI (test code = 0.6 mg/dL 0.1-1.5 8775178307) CALCIUM (test code = 9.5 mg/dL 8.6-10.6 9630163101) T PROTEIN (test code = 8.6 g/dL 6.3-8.2 H 6554832005) ALBUMIN (test code = 4.6 g/dL 3.5-5.0 6738654592) ALK PHOS (test code = 121 U/L 34-122 3356946214) ALTv (test code = 58 U/L 5-50 H 1742-6) AST(SGOT) (test code = 32 U/L 13-40 2027093114) eGFR (test code = mL/min/1.73m2 5282454959) ARPITA (test code = ARPITA) Association of [...] tests). Lab Interpretation Abnormal (test code = 08677-4) [facility] WITH [id number] 05:48:31 Test Item Value Reference Range Interpretation Comments WBC (test code = See_Comment H [Automated 6829-2) message] The sy stem which generated this result transmitted reference range : 4.20 - 10.70 10*3/?L. The reference range was not used to interpret this result as normal/abnormal . RBC (test code = See_Comment H [Automated 839-8) message] The sy stem which generated this result transmitted reference range : 4.26 - 5.52 10*6/?L. The reference range was not used to interpret this result as normal/abnormal . HGB (test code = 17.3 g/dL 12.2-16.4 H 718-7) HCT (test code = 51.4 % 38.4-49.3 H 4544-3) MCV (test code = 87.7 fL 81.7-95.6 787-2) MCH (test code = 29.5 pg 26.1-32.7 785-6) MCHC (test code = 33.7 g/dL 31.2-35.0 786-4) RDW-SD (test code = 49.1 fL 38.5-51.6 32493-4) RDW-CV (test code = 15.5 % 12.1-15.4 H 788-0) PLT (test code = See_Comment H [Automated 777-3) message] The sy stem which generated this result transmitted reference range : 150 - 328 10*3/ ?L. The reference r boubacar was not used to interpret this result as normal/abnormal . MPV (test code = 10.4 fL 9.8-13.0 15761-5) NRBC/100 WBC (test See_Comment [Automat ed code = 7799106675) message] The system which generated this result transmitted reference range : 0.0 - 10.0 /100 WBCs. The refer ence range was not u sed to interpret th is result as normal/abnormal . NRBC x10^3 (test code <0.01 See_Comment [Auto mated = 6538981167) message] The s ystem which generated this result transmitted reference range : 10*3/?L. The reference range was not used to interpret this result as normal/abnormal . GRAN MAT (NEUT) % 64.8 % (test code = 770-8) IMM GRAN % (test code 0.70 % = 2336296170) LYMPH % (test code = 25.2 % 736-9) MONO % (test code = 6.9 % 5905-5) EOS % (test code = 1.9 % 713-8) BASO % (test code = 0.5 % 706-2) GRAN MAT x10^3(ANC) 7.80 10*3/uL 1.99-6.95 H (test code = 3178708899) IMM GRAN x10^3 (test 0.08 10*3/uL 0.00-0.06 H code = 6115618302) LYMPH x10^3 (test code 3.04 10*3/uL 1.09-3.23 = 731-0) MONO x10^3 (test code 0.83 10*3/uL 0.36-1.02 = 742-7) EOS x10^3 (test code = 0.23 10*3/uL 0.06-0.53 711-2) BASO x10^3 (test code 0.06 10*3/uL 0.01-0.09 = 704-7) Lab Interpretation Abnormal (test code = 74431-8) [facility]. METABOLIC PANEL (86832)2021-08-01 02:19:08 Test Item Value Reference Range Interpretation Comments NA (test code = 136 mmol/L 135-145 1377484464) K (test code = 4.4 mmol/L 3.5-5.0 8032395121) CL (test code = 99 mmol/L 98-108 7293242521) CO2 TOTAL (test code = 25 mmol/L 23-31 4631378557) AGAP (test code = 2-16 4681416901) BUN (test code = 19 mg/dL 7-23 2151903787) GLUCOSE (test code = 103 mg/dL 70-110 6953420840) CREATININE (test code = 0.70 mg/dL 0.60-1.25 9166931199) TOTAL BILI (test code = 0.7 mg/dL 0.1-1.8 6292899814) CALCIUM (test code = 9.2 mg/dL 8.6-10.6 5839595007) T PROTEIN (test code = 9.4 g/dL 6.3-8.2 H 9741021448) ALBUMIN (test code = 4.8 g/dL 3.5-5.0 7008195378) ALK PHOS (test code = 146 U/L 34-122 H 8130462095) ALTv (test code = 75 U/L 5-50 H 1742-6) AST(SGOT) (test code = 37 U/L 13-40 2042329311) eGFR (test code = mL/min/1.73m2 9939928409) ARPITA (test code = ARPITA) Association of [...] tests). Lab Interpretation Abnormal (test code = 09577-6) [facility]27 Test Item Value Reference Range Interpretation Comments LIPASE (test code = 0035604176) 86 U/L 0-220 Lab Interpretation (test code = Normal 31033-1) [facility] [id number] 01:55:49 Test Item Value Reference Range Interpretation Comments WBC (test code = See_Comment H [Automated 5342-2) message] The sy stem which generated this result transmitted reference range : 4.20 - 10.70 10*3/?L. The reference range was not used to interpret this result as normal/abnormal . RBC (test code = See_Comment H [Automated 076-8) message] The sy stem which generated this result transmitted reference range : 4.26 - 5.52 10*6/?L. The reference range was not used to interpret this result as normal/abnormal . HGB (test code = 18.0 g/dL 12.2-16.4 H 718-7) HCT (test code = 53.9 % 38.4-49.3 H 4544-3) MCV (test code = 87.2 fL 81.7-95.6 787-2) MCH (test code = 29.1 pg 26.1-32.7 785-6) MCHC (test code = 33.4 g/dL 31.2-35.0 786-4) RDW-SD (test code = 48.7 fL 38.5-51.6 45742-0) RDW-CV (test code = 15.4 % 12.1-15.4 788-0) PLT (test code = See_Comment H [Automated 777-3) message] The sy stem which generated this result transmitted reference range : 150 - 328 10*3/ ?L. The reference r boubacar was not used to interpret this result as normal/abnormal . MPV (test code = 9.9 fL 9.8-13.0 73411-7) NRBC/100 WBC (test See_Comment [Automat ed code = 2364675326) message] The system which generated this result transmitted reference range : 0.0 - 10.0 /100 WBCs. The refer ence range was not u sed to interpret th is result as normal/abnormal . NRBC x10^3 (test code <0.01 See_Comment [Auto mated = 6456915029) message] The s ystem which generated this result transmitted reference range : 10*3/?L. The reference range was not used to interpret this result as normal/abnormal . GRAN MAT (NEUT) % 69.8 % (test code = 770-8) IMM GRAN % (test code 0.50 % = 2943122319) LYMPH % (test code = 20.5 % 736-9) MONO % (test code = 6.8 % 5905-5) EOS % (test code = 1.9 % 713-8) BASO % (test code = 0.5 % 706-2) GRAN MAT x10^3(ANC) 7.72 10*3/uL 1.99-6.95 H (test code = 6481387357) IMM GRAN x10^3 (test 0.05 10*3/uL 0.00-0.06 code = 3307306277) LYMPH x10^3 (test code 2.26 10*3/uL 1.09-3.23 = 731-0) MONO x10^3 (test code 0.75 10*3/uL 0.36-1.02 = 742-7) EOS x10^3 (test code = 0.21 10*3/uL 0.06-0.53 711-2) BASO x10^3 (test code 0.06 10*3/uL 0.01-0.09 = 704-7) Lab Interpretation Abnormal (test code = 54005-5) [facility]IX69[facility]-36 23:33:52 Test Item Value Reference Interpretation Comments Range D-DIMER (test code = See_Comment [Autom ated 0477221675) message] The system which generated this result transmitted reference range : <0.41 ?g/mL (FEU). The reference range was not used to interpret this result as normal/abnormal . ARPITA (test code = This test may be ARPITA) used in conjunction with a clinical pretest probability (PTP) assessment model to exclude venous thromboembolism (VTE) in patients suspected of deep venous thrombosis (DVT) and pulmonary embolism (PE) A D-Dimer value less than 0.50 ?g/ml (FEU) has a negative predicative value of 96 to 100% (95% CI)and 97 to 100% (95% CI) as an aid in the diagnosis of deep vein thrombosis (DVT) and pulmonary embolism when there is low or moderate pretest probability of PE or DVT. D-Dimer values are expressed in initial fibrinogen equivalent units (FEU)" The assay results should be used with other information, including the clinical context, in forming a diagnosis. Lab Interpretation Normal (test code = 38777-3) [facility] (23219)2021-07-29 22:42:48 Test Item Value Reference Range Interpretation Comments NA (test code = 135 mmol/L 135-145 1181162708) K (test code = 4.6 mmol/L 3.5-5.0 6957817884) CL (test code = 102 mmol/L 98-108 3562016892) CO2 TOTAL (test code = 24 mmol/L 23-31 2036926863) AGAP (test code = 2-16 0610317900) BUN (test code = 17 mg/dL 7-23 9033940932) GLUCOSE (test code = 107 mg/dL 70-110 4540911979) CREATININE (test code = 0.60 mg/dL 0.60-1.25 8852176870) TOTAL BILI (test code = 1.0 mg/dL 0.1-1.9 2316752735) CALCIUM (test code = 9.4 mg/dL 8.6-10.6 8809700320) T PROTEIN (test code = 8.6 g/dL 6.3-8.2 H 2314054470) ALBUMIN (test code = 4.6 g/dL 3.5-5.0 7054707622) ALK PHOS (test code = 159 U/L 34-122 H 6214813804) ALTv (test code = 77 U/L 5-50 H 2-6) AST(SGOT) (test code = 38 U/L 13-40 2080147173) eGFR (test code = mL/min/1.73m2 4336846796) ARPITA (test code = ARPITA) Association of [...] tests). Lab Interpretation Abnormal (test code = 39350-3) [facility] WITH [id number] 22:30:27 Test Item Value Reference Range Interpretation Comments WBC (test code = See_Comment H [Automated 6690-2) message] The system which generated this result transmit lester reference range : 4.20 - 10.70 10*3/?L. The reference range was not used to interpret this result as normal/abnormal . RBC (test code = See_Comment H [Automated 789-8) message] The system which generated this result transmit lester reference range : 4.26 - 5.52 10*6/?L. The reference range was not used to interpret this result as normal/abnormal . HGB (test code = 17.5 g/dL 12.2-16.4 H 718-7) HCT (test code = 51.0 % 38.4-49.3 H 4544-3) MCV (test code = 86.7 fL 81.7-95.6 787-2) MCH (test code = 29.8 pg 26.1-32.7 785-6) MCHC (test code = 34.3 g/dL 31.2-35.0 786-4) RDW-SD (test code = 48.0 fL 38.5-51.6 63630-4) RDW-CV (test code = 15.1 % 12.1-15.4 788-0) PLT (test code = See_Comment H [Automated 777-3) message] The system which generated this result transmit lester reference range : 150 - 328 10*3/ ?L. The reference range was not u sed to interpret th is result as normal/abnormal . MPV (test code = 10.3 fL 9.8-13.0 40504-9) NRBC/100 WBC (test See_Comment [Automat ed code = [id number]) message] The system which generated this result transmit lester reference range : 0.0 - 10.0 /100 WBCs. The reference range was not used to interpret this result as normal/abnormal . NRBC x10^3 (test code <0.01 See_Comment [Auto mated = [id number]) message] The system which generated this result transmit lester reference range : 10*3/?L. The reference range was not used to interpret this result as normal/abnormal . GRAN MAT (NEUT) % 79.9 % (test code = 770-8) IMM GRAN % (test code 0.50 % = [id number]) LYMPH % (test code = 11.8 % 736-9) MONO % (test code = 6.6 % 5905-5) EOS % (test code = 0.9 % 713-8) BASO % (test code = 0.3 % 706-2) GRAN MAT x10^3(ANC) 10.70 10*3/uL 1.99-6.95 H (test code = [id number]) IMM GRAN x10^3 (test 0.07 10*3/uL 0.00-0.06 H code = [id number]) LYMPH x10^3 (test code 1.58 10*3/uL 1.09-3.23 = 731-0) MONO x10^3 (test code 0.89 10*3/uL 0.36-1.02 = 742-7) EOS x10^3 (test code = 0.12 10*3/uL 0.06-0.53 711-2) BASO x10^3 (test code 0.04 10*3/uL 0.01-0.09 = 704-7) Lab Interpretation Abnormal (test code = 89364-2) [facility]. METABOLIC PANEL (01215)2021-06-07 23:02:15 Test Item Value Reference Range Interpretation Comments NA (test code = 137 mmol/L 135-145 8972948703) K (test code = 4.5 mmol/L 3.5-5.0 5251782372) CL (test code = 109 mmol/L 98-108 H 5812677502) CO2 TOTAL (test code = 22 mmol/L 23-31 L 5809605919) AGAP (test code = 2-16 4039547650) BUN (test code = 7 mg/dL 7-23 5060452624) GLUCOSE (test code = 87 mg/dL 70-110 9204327741) CREATININE (test code = 0.61 mg/dL 0.60-1.25 0795473986) TOTAL BILI (test code = 0.5 mg/dL 0.1-1.2 5048672264) CALCIUM (test code = 9.0 mg/dL 8.6-10.6 2843116375) T PROTEIN (test code = 6.9 g/dL 6.3-8.2 6182727049) ALBUMIN (test code = 3.5 g/dL 3.5-5.0 2831751762) ALK PHOS (test code = 112 U/L 34-122 6144299542) ALTv (test code = 35 U/L 5-50 1742-6) AST(SGOT) (test code = 21 U/L 13-40 3400940997) eGFR (test code = mL/min/1.73m2 0471655598) ARPITA (test code = ARPITA) Association of [...] tests). Lab Interpretation Abnormal (test code = 87145-5) [facility] WITH [id number] 22:51:57 Test Item Value Reference Range Interpretation Comments WBC (test code = See_Comment H [Automated 6690-2) message] The sy stem which generated this result transmitted reference range : 4.20 - 10.70 10*3/?L. The reference range was not used to interpret this result as normal/abnormal . RBC (test code = See_Comment [Automated 789-8) message] The sy stem which generated this result transmitted reference range : 4.26 - 5.52 10*6/?L. The reference range was not used to interpret this result as normal/abnormal . HGB (test code = 14.7 g/dL 12.2-16.4 718-7) HCT (test code = 43.7 % 38.4-49.3 4544-3) MCV (test code = 85.9 fL 81.7-95.6 787-2) MCH (test code = 28.9 pg 26.1-32.7 785-6) MCHC (test code = 33.6 g/dL 31.2-35.0 786-4) RDW-SD (test code = 42.4 fL 38.5-51.6 60823-2) RDW-CV (test code = 13.6 % 12.1-15.4 788-0) PLT (test code = See_Comment H [Automated 777-3) message] The sy stem which generated this result transmitted reference range : 150 - 328 10*3/ ?L. The reference r boubacar was not used to interpret this result as normal/abnormal . MPV (test code = 9.4 fL 9.8-13.0 L 04258-2) NRBC/100 WBC (test See_Comment [Automat ed code = 4685248199) message] The system which generated this result transmitted reference range : 0.0 - 10.0 /100 WBCs. The refer ence range was not u sed to interpret th is result as normal/abnormal . NRBC x10^3 (test code <0.01 See_Comment [Auto mated = 7546161750) message] The s ystem which generated this result transmitted reference range : 10*3/?L. The reference range was not used to interpret this result as normal/abnormal . GRAN MAT (NEUT) % 76.4 % (test code = 770-8) IMM GRAN % (test code 0.40 % = 9723823168) LYMPH % (test code = 16.3 % 736-9) MONO % (test code = 5.6 % 5905-5) EOS % (test code = 1.0 % 713-8) BASO % (test code = 0.3 % 706-2) GRAN MAT x10^3(ANC) 8.81 10*3/uL 1.99-6.95 H (test code = 9237079115) IMM GRAN x10^3 (test 0.05 10*3/uL 0.00-0.06 code = 3458472496) LYMPH x10^3 (test code 1.88 10*3/uL 1.09-3.23 = 731-0) MONO x10^3 (test code 0.64 10*3/uL 0.36-1.02 = 742-7) EOS x10^3 (test code = 0.12 10*3/uL 0.06-0.53 711-2) BASO x10^3 (test code 0.03 10*3/uL 0.01-0.09 = 704-7) Lab Interpretation Abnormal (test code = 75568-7) [facility]2020-11-21 01:01:33 Test Item Value Reference Range Interpretation Comments SARS-CoV-2 Rapid ID NOW Not Detected Not Detected (test code = 51226-0) ARPITA (test code = ARPITA) ID NOW COVID-19 Assay is an isothermal nucleic acid amplification test intended for the qualitative detection of nucleic acid from SARS-CoV-2 viral RNA in nasopharyngeal (SENIOR 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 It is used under Emergency Use [...] patient testing if clinically indicated. Lab Interpretation Normal (test code = 60585-8) [facility]. METABOLIC PANEL (13827)2020-11-21 01:00:33 Test Item Value Reference Range Interpretation Comments NA (test code = 140 mmol/L 135-145 9753946320) K (test code = 4.4 mmol/L 3.5-5.0 9572781726) CL (test code = 103 mmol/L 98-108 7448822499) CO2 TOTAL (test code = 28 mmol/L 23-31 5675799811) AGAP (test code = 2-16 2615176484) BUN (test code = 15 mg/dL 7-23 6090188238) GLUCOSE (test code = 85 mg/dL 70-110 1859714536) CREATININE (test code = 0.60 mg/dL 0.60-1.25 2222907228) TOTAL BILI (test code = 1.1 mg/dL 0.1-1.0 8600207617) CALCIUM (test code = 9.0 mg/dL 8.6-10.6 1055157934) T PROTEIN (test code = 7.8 g/dL 6.3-8.2 2180135657) ALBUMIN (test code = 4.0 g/dL 3.5-5.0 8357370388) ALK PHOS (test code = 166 U/L 34-122 H 6843852295) ALTv (test code = 42 U/L 5-50 1742-6) AST(SGOT) (test code = 32 U/L 13-40 3545825499) eGFR (test code = mL/min/1.73m2 3101526958) ARPITA (test code = ARPITA) Association of [...] tests). Lab Interpretation Abnormal (test code = 41412-4) [facility] 01:00:13 Test Item Value Reference Range Interpretation Comments LIPASE (test code = 5682654607) 57 U/L 0-220 Lab Interpretation (test code = Normal 40742-4) [facility] 00:51:55 Test Item Value Reference Range Interpretation Comments APPEARANCE (test code = Turbid Clear A 4678020815) COLOR (test code = Yellow Yellow 7131305100) PH (test code = 4.8-8.0 7130696435) SP GRAVITY (test code = 1.003-1.030 0438114366) GLU U QUAL (test code = Normal Normal 5424159982) BLOOD (test code = 1+ Negative A 9578142244) KETONES (test code = 20 mg/dL Negative A 0038004362) PROTEIN (test code = 100 mg/dL Negative A 2887-8) UROBILIN (test code = 2.0 mg/dL Normal A 9102149246) BILIRUBIN (test code = Negative Negative 8812143163) NITRITE (test code = Positive Negative A 8445646358) LEUK CHAD (test code = 250/uL Negative A 9262905799) RBC/HPF (test code = See_Comment H [Autom ated message] 8530579186) The system [employer] generated this result transmit lester reference range : 0 - 3 HPF. The refe rence range was not u sed to interpret th is result as normal/abnormal . WBC/HPF (test code = >182 See_Comment H [Autom ated message] 7164688040) The system [employer] generated this result transmit lester reference range : 0 - 5 HPF. The refe rence range was not u sed to interpret th is result as normal/abnormal . BACTERIA (test code = Many Negative A 7969091785) MUCOUS (test code = Moderate Negative LPF A 6184834825) WBC CLUMPS (test code = See_Comment H [Au tomated message] 6705918136) The system [employer] generated this result transmit lester reference range : <=1 HPF. The refere nce range was not u sed to interpret th is result as normal/abnormal . Lab Interpretation (test Abnormal code = 53144-3) [facility] WITH [id number] 00:46:14 Test Item Value Reference Range Interpretation Comments WBC (test code = See_Comment [Automated 6690-2) message] The sy stem which generated this result transmitted reference range : 4.20 - 10.70 10*3/?L. The reference range was not used to interpret this result as normal/abnormal . RBC (test code = See_Comment [Automated 789-8) message] The sy stem which generated this [...] RDW-SD (test code = 47.6 fL 38.5-51.6 08984-9) RDW-CV (test code = 15.2 % 12.1-15.4 788-0) PLT (test code = See_Comment H [Automated 777-3) message] The sy stem which generated this result transmitted reference range : 150 - 328 10*3/ ?L. The reference r boubacar was not used to interpret this result as normal/abnormal . MPV (test code = 9.4 fL 9.8-13.0 L 50831-3) NRBC/100 WBC (test See_Comment [Automat ed code = 0160190573) message] The system which generated this result transmitted reference range : 0.0 - 10.0 /100 WBCs. The refer ence range was not u sed to interpret th is result as normal/abnormal . NRBC x10^3 (test code <0.01 See_Comment [Auto mated = 5149502472) message] The s ystem which generated this result transmitted reference range : 10*3/?L. The reference range was not used to interpret this result as normal/abnormal . GRAN MAT (NEUT) % 61.3 % (test code = 770-8) IMM GRAN % (test code 0.70 % = 2852107016) LYMPH % (test code = 26.4 % 736-9) MONO % (test code = 9.9 % 5905-5) EOS % (test code = 1.3 % 713-8) BASO % (test code = 0.4 % 706-2) GRAN MAT x10^3(ANC) 6.39 10*3/uL 1.99-6.95 (test code = 0794580990) IMM GRAN x10^3 (test 0.07 10*3/uL 0.00-0.06 H code = 3281199776) LYMPH x10^3 (test code 2.75 10*3/uL 1.09-3.23 = 731-0) MONO x10^3 (test code 1.03 10*3/uL 0.36-1.02 H = 742-7) EOS x10^3 (test code = 0.14 10*3/uL 0.06-0.53 711-2) BASO x10^3 (test code 0.04 10*3/uL 0.01-0.09 = 704-7) Lab Interpretation Abnormal (test code = 83640-8) [facility] [id number] 13:03:00 Test Item Value Reference Range Interpretation Comments POC-GLUCOSE METER 140 mg/dL 70-110 H : TESTED A T [facility] 6720 (BEAKER) (test code = [facility], [facility]8) 21336: Global Compensation Director/Techni rose ID = [id number] for AARON COTTRELL POCT-GLUCOSE [id number] 09:15:00 Test Item Value Reference Range Interpretation Comments POC-GLUCOSE METER 142 mg/dL 70-110 H : TESTED A T [facility] 6720 (BEAKER) (test code = [facility], [facility]8) 93330: Global Compensation Director/Techni rose ID = [id number] for AARON COTTRELL POCT-GLUCOSE [id number] 20:56:00 Test Item Value Reference Range Interpretation Comments POC-GLUCOSE METER 134 mg/dL 70-110 H : TESTED A T [facility] 6720 (BEAKER) (test code = [facility], [facility]8) 43463: Global Compensation Director/Techni rose ID = [id number] for MG LANZA POCT-GLUCOSE [id number] 16:46:00 Test Item Value Reference Range Interpretation Comments POC-GLUCOSE METER 91 mg/dL 70-110 : TESTED A T [facility] 6720 (BEAKER) (test code = [facility], [facility]8) 28055: Global Compensation Director/Techni rose ID = [id number] for AARON CABRAL POCT-GLUCOSE [id number] 12:19:00 Test Item Value Reference Range Interpretation Comments POC-GLUCOSE METER 237 mg/dL 70-110 H : TESTED A T [facility] 6720 (BEAKER) (test code = [facility], [facility]8) 39950: Global Compensation Director/Techni rose ID = [id number] for AARON COTTRELL MR, EXTREMITY, LOWER, WITHOUT CONTRAST, [id number] 09:12:00FINAL REPORT MRI of the right and [...] Garza Verified Date/Time: 07/29/2019 09:12:01 Reading Location: [address] Ortho Consult Reading Room MR, EXTREMITY, LOWER, WITHOUT CONTRAST, [id number] 09:12:00FINAL REPORT MRI of the right and [...] Garzaort Verified Date/Time: 07/29/2019 09:12:01 Reading Location: [facility] C013X Ortho Consult Reading Room POCT-GLUCOSE [id number] 08:47:00 Test Item Value Reference Range Interpretation Comments POC-GLUCOSE METER 264 mg/dL 70-110 H : TESTED A T [facility] 6720 (BEAKER) (test code = [facility], 1538) 43880: Global Compensation Director/Techni rose ID = [id number] for AARON COTTRELL ISLET CELL AB [id number] 07:43:00 Test Item Value Reference Range Interpretation Comments ISLET CELL AB Refer to individual AUTOVERIFICATION (test Islet Cell Ab code = 2556) and/or Islet Cell Ab Titer results. POCT-GLUCOSE [id number] 21:27:00 Test Item Value Reference Range Interpretation Comments POC-GLUCOSE METER 130 mg/dL 70-110 H : TESTED A T [facility] 6720 (BEAKER) (test code = [facility] Damaso [facility], 1538) 35124: Global Compensation Director/Techni rose ID = [id number] for FERNIE APARICIO BLOOD [id number] 13:00:00 Test Item Value Reference Range Interpretation Comments CULTURE (BEAKER) (test No growth in 5 days code = 1095) BLOOD [id number] 13:00:00 Test Item Value Reference Range Interpretation Comments CULTURE (BEAKER) (test No growth in 5 days code = 1095) POCT-GLUCOSE [id number] 12:57:00 Test Item Value Reference Range Interpretation Comments POC-GLUCOSE METER 138 mg/dL 70-110 H : TESTED A T [facility] 6720 ([facility] (test code = [facility], 153) 25685: Global Compensation Director/Techni rose ID = [id number] for [place] LLIS, JUAN ANTONIO POCT-GLUCOSE [id number] 08:43:00 Test Item Value Reference Range Interpretation Comments POC-GLUCOSE METER 226 mg/dL 70-110 H : TESTED A T [facility] 6720 ([facility] (test code = [facility], 153) 57485: Global Compensation Director/Techni rose ID = [id number] for [place] LLIS, JUAN ANTONIO POCT-GLUCOSE [id number] 21:11:00 Test Item Value Reference Range Interpretation Comments POC-GLUCOSE METER 254 mg/dL 70-110 H : Notified RN/MD: ([facility] (test code = TESTED AT [place] 4849520 153) [facility], 18595: Global Compensation Director/Techni rose ID = [id number] for FERNIE APARICIO POCT-GLUCOSE [id number] 21:02:00 Test Item Value Reference Range Interpretation Comments POC-GLUCOSE METER 177 mg/dL 70-110 H : TESTED A T [facility] 6720 ([facility] (test code = [facility], 153) 64635: Global Compensation Director/Techni rose ID = [id number] for [place] LLIS, JUAN ANTONIO POCT-GLUCOSE [id number] 12:31:00 Test Item Value Reference Range Interpretation Comments POC-GLUCOSE METER 215 mg/dL 70-110 H : [facility] (test code = [facility], 153) 44960: Global Compensation Director/Techni rose ID = [id number] for [place] LLIS, JUAN ANTONIO WOUND CULTURE + GRAM [id number] 10:10:00 Test Item Value Reference Interpretation Comments Range CULTURE ([facility] PROTEUS MIRABILIS A 1+ Pro teus (test [...] gram negative (BEAKER) (test code = rods 903869) GRAM STAIN RESULT 2+ gram positive (BEAKER) (test code = rods 168911) GRAM STAIN RESULT <1+ gram negative (BEAKER) (test code = coccobacilli 995510) GRAM STAIN RESULT 2+ gram positive (BEAKER) (test code = cocci in pairs 612034) POCT-GLUCOSE [id number] 08:52:00 Test Item Value Reference Range Interpretation Comments POC-GLUCOSE METER 209 mg/dL 70-110 H : TESTED A T [facility] 6720 (BEAKER) (test code = [facility], 153) 23302: Global Compensation Director/Techni rose ID = [id number] for [place] LLSPARKLE, JUAN ANTONIO POCT-GLUCOSE [id number] 21:26:00 Test Item Value Reference Range Interpretation Comments POC-GLUCOSE METER 255 mg/dL 70-110 H : TESTED A T [facility] 6720 (BEAKER) (test code = [facility], 153) 50066: Global Compensation Director/Techni rose ID = [id number] for MG LANZA POCT-GLUCOSE [id number] 17:34:00 Test Item Value Reference Range Interpretation Comments POC-GLUCOSE METER 227 mg/dL 70-110 H : TESTED A T [facility] 6720 (BEAKER) (test code = [facility], 153) 81808: Global Compensation Director/Techni rose ID = [id number] for CHAVEZ NNY, LETI POCT-GLUCOSE [id number] 11:28:00 Test Item Value Reference Range Interpretation Comments POC-GLUCOSE METER 282 mg/dL 70-110 H : TESTED A T [facility] 6720 (BEAKER) (test code = [facility], 153) 06372: Global Compensation Director/Techni rose ID = [id number] for CHAVEZ NNY, LETI POCT-GLUCOSE [id number] 08:19:00 Test Item Value Reference Range Interpretation Comments POC-GLUCOSE METER 329 mg/dL 70-110 H : TESTED A T [facility] 6720 (BEAKER) (test code = [facility], 153) 60340: Global Compensation Director/Techni rose ID = [id number] for AARON COTTRELL POCT-GLUCOSE [id number] 21:32:00 Test Item Value Reference Range Interpretation Comments POC-GLUCOSE METER 275 mg/dL 70-110 H : TESTED A T [facility] 6720 (BEAKER) (test code = [facility], 1538) 38868: Global Compensation Director/Techni rose ID = [id number] for MG LANZA POCT-GLUCOSE [id number] 17:47:00 Test Item Value Reference Range Interpretation Comments POC-GLUCOSE METER 304 mg/dL 70-110 H : TESTED A T [facility] 6720 (BEAKER) (test code = [facility], 1538) 44019: Global Compensation Director/Techni rose ID = [id number] for MA JOHNNIE, ERIN URINE [id number] 15:21:00 Test Item Value Reference Range Interpretation [...] Tobramycin (test code R = 25) POCT-GLUCOSE [id number] 12:16:00 Test Item Value Reference Range Interpretation Comments POC-GLUCOSE METER 337 mg/dL 70-110 H : TESTED A T [facility] 6720 (BEAKER) (test code = [facility], 1538) 33727: Global Compensation Director/Techni rose ID = [id number] for SAM BLAIR, ERIN BASIC METABOLIC [id number] 10:39:00 Test Item Value Reference Range Interpretation [...] S NOT APPLICABLE FOR DIALYSIS PATIEN TS. Global Compensation Director ID - JANET FPOCT-GLUCOSE [id number] 08:29:00 Test Item Value Reference Range Interpretation Comments POC-GLUCOSE METER 395 mg/dL 70-110 H : TESTED A T [facility] 6720 (BEAKER) (test code = LIZBETH Petit [facility], 1538) 70653: Global Compensation Director/Techni rose ID = [id number] for ERIN ARIZMENDI CBC W/PLT COUNT & AUTO [id number] 06:40:00 Test Item Value Reference Range Interpretation [...] PERCENT (BEAKER) (test code = 2801) POCT-GLUCOSE [id number] 19:55:00 Test Item Value Reference Range Interpretation Comments POC-GLUCOSE METER 369 mg/dL 70-110 H : TESTED A T [facility] 6720 (BEAKER) (test code = [facility], 153) 06902: Global Compensation Director/Techni rose ID = [id number] for MG LANZA POCT-GLUCOSE [id number] 16:45:00 Test Item Value Reference Range Interpretation Comments POC-GLUCOSE METER 272 mg/dL 70-110 H : TESTED A T [facility] 6720 (BEAKER) (test code = [facility], 153) 29472: Global Compensation Director/Techni rose ID = [id number] for FRIEDA PALOMINO POCT-GLUCOSE [id number] 11:40:00 Test Item Value Reference Range Interpretation Comments POC-GLUCOSE METER 277 mg/dL 70-110 H : TESTED A T [facility] 6720 (BEAKER) (test code = LIZBETH Pet[place], 1538) [address]: Global Compensation Director/Techni rose ID = [id number] for FRIEDA PALOMINO BASIC METABOLIC [id number] 10:22:00 Test Item Value Reference Range Interpretation [...] S NOT APPLICABLE FOR DIALYSIS PATIEN TS. Global Compensation Director ID - NTPLIPID [id number] 10:17:00 Test Item Value Reference Range Interpretation [...] Borderline 130-159 High 160-189 Very High >=190 Global Compensation Director ID - NTP POCT-GLUCOSE [id number] 08:28:00 Test Item Value Reference Range Interpretation Comments POC-GLUCOSE METER 388 mg/dL 70-110 H : TESTED A T [facility] 6720 (BEAKER) (test code = [place], 1538) 76[address]: Global Compensation Director/Techni rose ID = [id number] for AARON COTTRELL HEMOGLOBIN [id number] 07:54:00 Test Item Value Reference Range Interpretation Comments HEMOGLOBIN A1C (BEAKER) (test code = 10.4 % 4.3-6.1 H 368) CBC W/PLT COUNT & AUTO [id number] 05:56:00 Test Item Value Reference Range Interpretation [...] LYMPHOCYTES ABSOLUTE COUNT 2.03 K/ L 1.32-3.57 ([facility] (test code = 414) MONOCYTES ABSOLUTE COUNT (BEAKER) 0.63 K/ L 0.30-0.82 (test code = 415) EOSINOPHILS ABSOLUTE COUNT 0.15 K/ L 0.04-0.54 (AKER) (test code = 416) BASOPHILS ABSOLUTE COUNT (AKER) 0.03 K/ L 0.01-0.08 (test code = 417) IMMATURE GRANULOCYTES-RELATIVE 1 % 0-1 PERCENT ([facility] (test code = 2801) POCT-GLUCOSE [id number] 23:47:00 Test Item Value Reference Range Interpretation Comments POC-GLUCOSE METER 359 mg/dL 70-110 H : Notified RN/MD: ([facility] (test code = TESTED AT [place] [address] 1537) [facility], [address]60: Global Compensation Director/Techni rose ID = [id number] for LATHBRIDGE, MICHELINE ICE POCT-GLUCOSE [id number] 21:13:00 Test Item Value Reference Range Interpretation Comments POC-GLUCOSE METER 315 mg/dL 70-110 H : [facility] ([facility] (test code = [facility], 153) 79967: Global Compensation Director/Techni rose ID = [id number] for Sm ith, Ana POCT-GLUCOSE [id number] 21:13:00 Test Item Value Reference Range Interpretation Comments POC-GLUCOSE METER 331 mg/dL 70-110 H : [facility] ([facility] (test code = [facility], 153) 68057: Global Compensation Director/Techni rose ID = [id number] for RO DGERS, JAMECA POCT-GLUCOSE [id number] 10:30:00 Test Item Value Reference Range Interpretation Comments POC-GLUCOSE METER 341 mg/dL 70-110 H : [facility] ([facility] (test code = [facility], 153) 87906: Global Compensation Director/Techni rose ID = [id number] for Sm ith, Ana CBC W/PLT COUNT & AUTO [id number] 08:48:00 Test Item Value Reference Range Interpretation [...] (BEAKER) (test code = Present 1371) HEMOGLOBIN [id number] 06:39:00 Test Item Value Reference Range Interpretation Comments HEMOGLOBIN A1C (BEAKER) (test code = 10.5 % 4.3-6.1 H 368) LIPID [id number] 04:57:00 Test Item Value Reference Range Interpretation [...] Very High >=190 Specimen moderately lipemicBASIC METABOLIC [id number] 04:56:00 Test Item Value Reference Range Interpretation [...] NOT APPLICABLE FOR DIALYSIS PATIEN TS. 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 for possible cyst or pseudocyst [...] MDReport Verified Date/Time: 07/22/2019 19:54:10 Reading Location: [address] Consult Reading Room POCT-GLUCOSE [id number] 19:34:00 Test Item Value Reference Range Interpretation Comments POC-GLUCOSE METER 474 mg/dL 70-110 HH : Notified RN/MD: (FELICIANO) (test code = TESTED AT [place] 4849512 2038) [facility], [address]: Global Compensation Director/Techni rose ID = [id number] for MARILYNN MAO URINALYSIS W/ REFLEX URINE [id number] 17:48:00 Test Item Value Reference Range Interpretation Comments COLOR (FELICIANO) (test code = 470) Yellow CLARITY (BEAKER) [...] = Moderate 517) SOURCE(BEAKER) (test code = 2476) CBC W/PLT COUNT & AUTO [id number] 17:38:00 Test Item Value Reference Range Interpretation [...] 3438) Received comment: User comments: Slide comments:POCT-GLUCOSE [id number] 16:27:00 Test Item Value Reference Range Interpretation Comments POC-GLUCOSE METER 424 mg/dL 70-110 HH : Notified RN/MD: (BEAKER) (test code = TESTED AT [facility] 2782 3580) [facility], [address]: Global Compensation Director/Techni rose ID = [id number] for [place] INSONU, MARILYNN CT, BRAIN, WITHOUT [id number] 15:31:00FINAL REPORT CT, BRAIN, WITHOUT CONTRAST CLINICAL [...] MDReport Verified Date/Time: 07/22/2019 15:31:08 Reading Location: [facility] Neuro Reading Room RAD, SHUNT [id number] 15:13:00Reason for exam:->concern for VPS malfunction FINAL [...] the catheter appear contiguous. Signed: Raina Buchanan MDReport Verified Date/Time: 07/22/2019 15:13:54 Reading Location: [facility] Radiology Reading Room POCT-GLUCOSE METER 2019-07-22 11:38:00 Test Item Value Reference Range Interpretation Comments POC-GLUCOSE METER 394 mg/dL 70-110 H : TESTED A T [facility] 6720 [facility] (test code = LIZBETH Petit [facility], 1538) [address]: Global Compensation Director/Techni rose ID = [id number] for MARILYNN MAO HEMOGLOBIN [id number] 09:15:00 Test Item Value Reference Range Interpretation Comments HEMOGLOBIN A1C (BEAKER) (test code = 10.4 % 4.3-6.1 H 368) TSH/FREE T4 IF [id number] 07:54:00 Test Item Value Reference Range Interpretation Comments THYROID STIMULATING HORMONE 1.40 uIU/mL 0.35-4.94 (BEAKER) (test code = 772) POCT-GLUCOSE [id number] 07:48:00 Test Item Value Reference Range Interpretation Comments POC-GLUCOSE METER > mg/dL 70-110 HH : Notified RN/MD: TESTED (BEAKER) (test code = AT [facility] [address] [facility] [place] [address]) [facility], [address] 30: Global Compensation Director/Techni rose ID = [id number] for MARILYNN SMITH BASIC METABOLIC [id number] 07:44:00 Test Item Value Reference Range Interpretation [...] NOT APPLICABLE FOR DIALYSIS PATIEN TS. LIPID [id number] 07:34:00 Test Item Value Reference Range Interpretation [...] mg/dL 70-110 H : TESTED A T [facility] [address] (BEAKER) (test code = [place], 1538) [address]: Global Compensation Director/Techni rose ID = [id number] for MATEUS ALEJANDROCHERYLE COYNE RAD, FOOT, 2 VIEWS, [id number] 22:28:00Reason for exam:->osteomyletitis FINAL REPORT TECHNIQUE: Two [...] [place] Verified Date/Time: 07/21/2019 22:28:25 Reading Location: [address] Consult Reading Room RAD, FOOT, 2 VIEWS, [id number] 22:28:00Reason for exam:->osteomyletitsFINAL REPORT TECHNIQUE: Two views [...] [place] Verified Date/Time: 07/21/2019 22:28:25 Reading Location: [address] Consult Reading Room POCT-GLUCOSE METER 2019-07-21 21:04:00 Test Item Value Reference Range Interpretation Comments POC-GLUCOSE METER 430 mg/dL 70-110 HH : Notified RN/MD: (FELICIANO) (test code = TESTED AT [facility] 67[address] 1538) [facility], [address]: Global Compensation Director/Techni rose ID = [id number] for ALBERTO OLIVER ERTAPENEM:SUSC:PT:ISOLATE:ORDQN:[id number] 16:48:00 Test Item Value Reference Range Interpretation Comments Culture: Urine (test >100,000 CFU/mL Proteus code = Culture: mirabilis 10,000 - Urine) 50,000 CFU/mL Skin [facility]:SUSC:PT:ISOLATE:ORDQN:[id number] 16:48:00 Test Item Value Reference Range Interpretation Comments Proteus mirabilis (test Proteus mirabilis code = Proteus mirabilis) [facility] AND [id number] 16:48:00 Test Item Value Reference Range Interpretation Comments UA Nitrite (test code Negative (05/22/18 10:48 = UA Nitrite) AM) [facility] AND [id number] 16:48:00 Test Item Value Reference Range Interpretation Comments UA Bili (test code = Negative *NA*(05/22/18 UA Bili) 10:48 AM) [facility] AND [id number] 16:48:00 Test Item Value Reference Range Interpretation Comments UA Ketones (test code Negative *NA*(05/22/18 = UA Ketones) 10:48 AM) [facility] AND [id number] 16:48:00 Test Item Value Reference Range Interpretation Comments UA Blood (test code = Trace *ABN*(05/22/18 UA Blood) 10:48 AM) [facility] AND [id number] 16:48:00 Test Item Value Reference Range Interpretation Comments UA Urobilinogen (test code = UA 0.2 0.1-1.0 Urobilinogen) [facility] AND [id number] 16:48:00 Test Item Value Reference Range Interpretation Comments UA Leuk Est (test code Large *ABN*(05/22/18 = UA Leuk Est) 10:48 AM) [facility] AND [id number] 16:48:00 Test Item Value Reference Range Interpretation Comments UA Protein (test code Negative (05/22/18 10:48 = UA Protein) AM) [facility] AND [id number] 16:48:00 Test Item Value Reference Range Interpretation Comments UA Glucose (test code Negative (05/22/18 10:48 = UA Glucose) AM) [facility] AND [id number] 16:48:00 Test Item Value Reference Range Interpretation Comments UA pH (test code = UA pH) 7.0 1 5.0-8.0 [facility] AND [id number] 16:48:00 Test Item Value Reference Range Interpretation Comments UA Spec Grav (test code = UA Spec 1.015 1 Grav) [facility] AND [id number] 16:48:00 Test Item Value Reference Range Interpretation Comments UA Color (test code = Yellow *NA*(05/22/18 UA Color) 10:48 AM) [facility] AND [id number] 16:48:00 Test Item Value Reference Range Interpretation Comments UA Turbidity (test code = Clear (05/22/18 10:48 UA Turbidity) AM) [facility] AND [id number] 16:48:00 Test Item Value Reference Range Interpretation Comments UA Mucus (test code = UA Mucus) Few /LPF [facility] AND [id number] 16:48:00 Test Item Value Reference Range Interpretation Comments UA Bacteria (test code = UA Few /HPF Bacteria) [facility] AND [id number] 16:48:00 Test Item Value Reference Range Interpretation Comments UA RBC (test code = 0-2 /HPF See_Comment [Automa lester message] The UA RBC) system which ge nerated this result tra nsmitted reference range : <=2. The reference range was not used to interpr et this result as dany l/abnormal. [facility] AND [id number] 16:48:00 Test Item Value Reference Range Interpretation Comments UA Sq Epi (test code = None Seen (05/22/18 UA Sq Epi) 10:48 AM) [facility] AND [id number] 16:48:00 Test Item Value Reference Range Interpretation Comments UA WBC (test code = UA WBC) 51-100 /HPF [facility] [id number] 11:57:00 Test Item Value Reference Range Interpretation Comments Antibody Scrn (test Negative (05/22/18 5:57 code = Antibody Scrn) AM) [facility] [employer] [id number] 11:57:00 Test Item Value Reference Range Interpretation Comments ABO/Rh (test code = ABO/Rh) AB POS [id number] 11:57:00 Test Item Value Reference Range Interpretation Comments PTT (test code = PTT) 33.4 s 22.9-35.8 [facility]BdonotvNBZTMVEBDM0510-34-85 11:57:00 Test Item Value Reference Range Interpretation Comments PT (test code = PT) 13.7 s 12.0-14.7 [facility] H[id number] 11:57:00 Test Item Value Reference Range Interpretation Comments INR (test code = INR) 1.05 1 0.85-1.17 [facility] [id number] 10:50:01 Test Item Value Reference Range Interpretation Comments RDW (test code = RDW) 18.9 11.5-14.5 [facility] Ho[id number] 10:50:01 Test Item Value Reference Range Interpretation Comments Hct (test code = Hct) 43.3 42.0-54.0 [facility] [id number] 10:50:01 Test Item Value Reference Range Interpretation Comments WBC (test code = WBC) 9.3 3.7-10.4 [facility] HospitalWqmwxgsDLFJAVRRRU6184-86-03 10:50:01 Test Item Value Reference Range Interpretation Comments Hgb (test code = Hgb) 14.7 14.0-18.0 [facility] HospitalWloioduGFUAQUAYMD9627-22-07 10:50:01 Test Item Value Reference Range Interpretation Comments RBC (test code = RBC) 5.36 4.70-6.10 [facility] H[id number] 10:50:01 Test Item Value Reference Range Interpretation Comments Eosinophils # (test code 0.2 See_Comment [A utomated message] The = Eosinophils #) system whic h generated this result tra nsmitted reference range : <=0.5. The reference r boubacar was not used to int erpret this result as normal/abnormal . [facility] H[id number] 10:50:01 Test Item Value Reference Range Interpretation Comments Basophils # (test code 0.1 See_Comment [Aut omated message] The = Basophils #) system which generated this result tra nsmitted reference range : <=0.2. The reference r boubacar was not used to int erpret this result as normal/abnormal . [facility] HospitalQyjsnjfWUFOSVTWHK5779-14-00 10:50:01 Test Item Value Reference Range Interpretation Comments Lymphocytes # (test code = Lymphocytes 1.8 1.0-5.5 #) [facility] Ho[id number] 10:50:01 Test Item Value Reference Range Interpretation Comments Monocytes # (test code 0.9 See_Comment [Aut omated message] The = Monocytes #) system which generated this result tra nsmitted reference range : <=0.8. The reference r boubacar was not used to int erpret this result as normal/abnormal . [facility] HospitalNbedqvvGOWGUFMZTV5303-46-25 10:50:01 Test Item Value Reference Range Interpretation Comments Neutrophils # (test code = Neutrophils 6.3 1.5-8.1 #) [facility] Hos[id number] 10:50:01 Test Item Value Reference Range Interpretation Comments Eosinophils (test code = 2.0 See_Comment [A utomated message] The Eosinophils) system which ge nerated this result tra nsmitted reference range : <=4.0. The reference r boubacar was not used to int erpret this result as normal/abnormal . [facility] HospitalGbeajtyTDJQTHHHUE3350-78-17 10:50:01 Test Item Value Reference Range Interpretation Comments Segs (test code = Segs) 67.4 45.0-75.0 [facility] HospitalQrkhphfIXMFDLSGQW8615-60-34 10:50:01 Test Item Value Reference Range Interpretation Comments Lymphocytes (test code = Lymphocytes) 19.9 20.0-40.0 [facility] HospitalDznftdaTJJSWTRPXE3172-35-60 10:50:01 Test Item Value Reference Range Interpretation Comments Basophils (test code = 1.0 See_Comment [Aut omated message] The Basophils) system which ge nerated this result tra nsmitted reference range : <=1.0. The reference r boubacar was not used to int erpret this result as normal/abnormal . [facility] H[id number] 10:50:01 Test Item Value Reference Range Interpretation Comments Monocytes (test code = Monocytes) 9.7 2.0-12.0 [facility]2018-11-08 10:50:01 Test Item Value Reference Range Interpretation Comments eGFR (test code = eGFR) 133 [facility]2018-11-08 10:50:01 Test Item Value Reference Range Interpretation Comments Calcium Lvl (test code = Calcium Lvl) 9.4 8.5-10.5 [facility]2018-11-08 10:50:01 Test Item Value Reference Range Interpretation Comments CO2 (test code = CO2) 28 24-32 [facility]2018-11-08 10:50:01 Test Item Value Reference Range Interpretation Comments BUN (test code = BUN) 14 7-22 [facility]2018-11-08 10:50:01 Test Item Value Reference Range Interpretation Comments Glucose Lvl (test code = Glucose Lvl) 89 70-99 [facility]2018-11-08 10:50:01 Test Item Value Reference Range Interpretation Comments Chloride Lvl (test code = Chloride Lvl) 104 95-109 [facility]2018-11-08 10:50:01 Test Item Value Reference Range Interpretation Comments Potassium Lvl (test code = Potassium 4.2 3.5-5.1 Lvl) [facility]2018-11-08 10:50:01 Test Item Value Reference Range Interpretation Comments Sodium Lvl (test code = Sodium Lvl) 137 135-145 [facility]2018-11-08 10:50:01 Test Item Value Reference Range Interpretation Comments Creatinine Lvl (test code = Creatinine 0.85 0.50-1.40 Lvl) [facility]2018-11-08 10:50:01 Test Item Value Reference Range Interpretation Comments AGAP (test code = AGAP) 9.2 10.0-20.0 [facility] Hospit[id number] 10:50:01 Test Item Value Reference Range Interpretation Comments ACT (TEG) Rapid (test code = ACT (TEG) 136 s 86-118 Rapid) [facility] HospitalShyoidnMGMVTILBOQ7649-15-26 10:50:01 Test Item Value Reference Range Interpretation Comments Split Point Rapid (test code = Split 0.6 min Point Rapid) [facility] HospitalFnnkdctBVLJZDSFNS5430-18-48 10:50:01 Test Item Value Reference Range Interpretation Comments R-time Rapid (test code = R-time 0.9 min 0.4-0.7 Rapid) [facility] HospitalFfszmbyPMXBWOOYBC4635-92-05 10:50:01 Test Item Value Reference Range Interpretation Comments K-time Rapid (test code = K-time 1.4 min 0.6-2.3 Rapid) [facility] HospitalWryarzkEMTTJPQCPO5451-65-26 10:50:01 Test Item Value Reference Range Interpretation Comments Angle Rapid (test code = Angle 71 degrees 64-80 Rapid) [facility] HospitalXaowfiwUVJVRPMGBR2060-29-69 10:50:01 Test Item Value Reference Range Interpretation Comments G-value Rapid (test code = G-value 12.7 5.0-11.6 Rapid) [facility] HospitalEjxrbftVFDPZCQAWN4783-47-18 10:50:01 Test Item Value Reference Range Interpretation Comments Max Amplitude Rapid (test code = Max 72 mm 52-71 Amplitude Rapid) [facility] HospitalRgutzhpSOPJNSCHJG3396-67-16 10:50:01 Test Item Value Reference Range Interpretation Comments Estimated % Lysis Rapid 0.1 See_Comment [Au tomated message] The (test code = Estimated syste m which generated % Lysis Rapid) this result t ransmitted reference range : <=7.5. The reference r boubacar was not used to int erpret this result as normal/abnormal . [facility] HospitalAjgchqtCVQNZTTVAX6625-84-74 10:50:01 Test Item Value Reference Range Interpretation Comments Platelet (test code = Platelet) 367 133-450 [facility] HospitalTgiwombMPGQUAMRXR0258-38-81 10:50:01 Test Item Value Reference Range Interpretation Comments MPV (test code = MPV) 7.8 7.4-10.4 [facility] HospitalInobezoAMLKQGDYOP2080-75-45 10:50:01 Test Item Value Reference Range Interpretation Comments MCH (test code = MCH) 27.4 pg 27.0-31.0 [facility] HospitalVkckjunIZQDXDXBYM3790-51-72 10:50:01 Test Item Value Reference Range Interpretation Comments MCV (test code = MCV) 80.7 80.0-94.0 [facility] HospitalYhtweodVMMAFSNOFP2846-42-67 10:50:01 Test Item Value Reference Range Interpretation Comments MCHC (test code = MCHC) 34.0 32.0-36.0 [facility]2018-05-08 05:42:00 Test Item Value Reference Range Interpretation Comments B/C Ratio (test code = B/C Ratio) 17 1 6-25 [facility]2018-05-08 05:42:00 Test Item Value Reference Range Interpretation Comments Globulin (test code = Globulin) 4.3 2.7-4.2 [facility]2018-05-08 05:42:00 Test Item Value Reference Range Interpretation Comments A/G Ratio (test code = A/G Ratio) 0.7 1 0.7-1.6 [facility]2018-05-08 05:42:00 Test Item Value Reference Range Interpretation Comments AGAP (test code = AGAP) 14.4 10.0-20.0 [facility]2018-05-08 05:42:00 Test Item Value Reference Range Interpretation Comments eGFR (test code = eGFR) 113 [facility]2018-05-08 05:42:00 Test Item Value Reference Range Interpretation Comments Alk Phos (test code = Alk Phos) 76 39-136 [facility]2018-05-08 05:42:00 Test Item Value Reference Range Interpretation Comments ALT (test code = ALT) 35 See_Comment [Auto mated message] The system which ge nerated this result transmit lester reference range : <=65. The reference range was not used to interpr et this result as dany l/abnormal. [facility]2018-05-08 05:42:00 Test Item Value Reference Range Interpretation Comments Albumin Lvl (test code = Albumin Lvl) 2.8 3.5-5.0 [facility]2018-05-08 05:42:00 Test Item Value Reference Range Interpretation Comments Total Protein (test code = Total 7.1 6.4-8.4 Protein) [facility]2018-05-08 05:42:00 Test Item Value Reference Range Interpretation Comments Calcium Lvl (test code = Calcium Lvl) 8.7 8.5-10.5 [facility]2018-05-08 05:42:00 Test Item Value Reference Range Interpretation Comments AST (test code = AST) 18 See_Comment [Auto mated message] The system which ge nerated this result transmit lester reference range : <=37. The reference range was not used to interpr et this result as dany l/abnormal. [facility]2018-05-08 05:42:00 Test Item Value Reference Range Interpretation Comments Bili Total (test code = Bili Total) 0.3 0.2-1.3 [facility]2018-05-08 05:42:00 Test Item Value Reference Range Interpretation Comments Potassium Lvl (test code = Potassium 4.4 3.5-5.1 Lvl) [facility]2018-05-08 05:42:00 Test Item Value Reference Range Interpretation Comments Chloride Lvl (test code = Chloride Lvl) 109 95-109 [facility]2018-05-08 05:42:00 Test Item Value Reference Range Interpretation Comments CO2 (test code = CO2) 23 24-32 [facility]2018-05-08 05:42:00 Test Item Value Reference Range Interpretation Comments Glucose Lvl (test code = Glucose Lvl) 114 70-99 [facility]2018-05-08 05:42:00 Test Item Value Reference Range Interpretation Comments Creatinine Lvl (test code = Creatinine 1.01 0.50-1.40 Lvl) [facility]2018-05-08 05:42:00 Test Item Value Reference Range Interpretation Comments BUN (test code = BUN) 17 7-22 [facility]2018-05-08 05:42:00 Test Item Value Reference Range Interpretation Comments Sodium Lvl (test code = Sodium Lvl) 142 135-145 [facility] HospitalYqahauwXDPUPZESAW5145-99-56 05:42:00 Test Item Value Reference Range Interpretation Comments Basophils (test code = 0.6 See_Comment [Aut omated message] The Basophils) system which ge nerated this result tra nsmitted reference range : <=1.0. The reference r boubacar was not used to int erpret this result as normal/abnormal . [facility] HospitalJyejexsKZUZFHKETL5137-77-77 05:42:00 Test Item Value Reference Range Interpretation Comments Segs-Bands # (test code = Segs-Bands #) 4.8 1.5-8.1 [facility] HospitalFtvqffxNGSZTHXGHH9510-46-70 05:42:00 Test Item Value Reference Range Interpretation Comments Monocytes # (test code 0.7 See_Comment [Aut omated message] The = Monocytes #) system which generated this result tra nsmitted reference range : <=0.8. The reference r boubacar was not used to int erpret this result as normal/abnormal . [facility] HospitalTzvtvziFNOLMMHHCQ8813-22-93 05:42:00 Test Item Value Reference Range Interpretation Comments Lymphocytes # (test code = Lymphocytes 1.9 1.0-5.5 #) [facility] HospitalErfvyleOPHUCILNAC8925-08-87 05:42:00 Test Item Value Reference Range Interpretation Comments Monocytes (test code = Monocytes) 9.4 2.0-12.0 [facility] HospitalXqzafhyLFGGQSAFHZ5304-87-12 05:42:00 Test Item Value Reference Range Interpretation Comments Eosinophils # (test code 0.2 See_Comment [A utomated message] The = Eosinophils #) system whic h generated this result tra nsmitted reference range : <=0.5. The reference r boubacar was not used to int erpret this result as normal/abnormal . [facility] HospitalNrnzychQGRHXBGMEI5391-18-71 05:42:00 Test Item Value Reference Range Interpretation Comments Eosinophils (test code = 2.9 See_Comment [A utomated message] The Eosinophils) system which ge nerated this result tra nsmitted reference range : <=4.0. The reference r boubacar was not used to int erpret this result as normal/abnormal . [facility] HospitalTgqqdqwFAOVKCUCVL5618-32-29 05:42:00 Test Item Value Reference Range Interpretation Comments Segs (test code = Segs) 62.2 45.0-75.0 [facility] HospitalHcuwtkwEFYBBQJQFX0113-23-63 05:42:00 Test Item Value Reference Range Interpretation Comments Lymphocytes (test code = Lymphocytes) 24.9 20.0-40.0 [facility] HospitalUkkcbgdIVKXVJXGEH5811-00-72 05:42:00 Test Item Value Reference Range Interpretation Comments MCH (test code = MCH) 27.5 pg 27.0-31.0 [facility] HospitalWvuyegpHAHLVARPZL4643-94-85 05:42:00 Test Item Value Reference Range Interpretation Comments MCV (test code = MCV) 85.3 80.0-94.0 [facility] HospitalHpporspUEVIMYGJUC1271-82-22 05:42:00 Test Item Value Reference Range Interpretation Comments Hct (test code = Hct) 43.9 42.0-54.0 [facility] HospitalIklvrbpLMYXSAHGMX7312-48-26 05:42:00 Test Item Value Reference Range Interpretation Comments Hgb (test code = Hgb) 14.2 14.0-18.0 [facility] HospitalTqiimofVSDFTWDVZP4602-39-73 05:42:00 Test Item Value Reference Range Interpretation Comments WBC (test code = WBC) 7.7 3.7-10.4 [facility] HospitalYwmzkumEVFYDFSODP2151-14-30 05:42:00 Test Item Value Reference Range Interpretation Comments RBC (test code = RBC) 5.15 4.70-6.10 [facility] HospitalHspsmhxLHFLKAJYGI0549-73-85 05:42:00 Test Item Value Reference Range Interpretation Comments MPV (test code = MPV) 8.4 7.4-10.4 [facility] HospitalIvbofqgTOWBPQPUPA5431-28-31 05:42:00 Test Item Value Reference Range Interpretation Comments MCHC (test code = MCHC) 32.3 32.0-36.0 [facility] HospitalGvleehpQOOBSKLWMN3617-81-10 05:42:00 Test Item Value Reference Range Interpretation Comments RDW (test code = RDW) 17.3 11.5-14.5 [facility] HospitalIrxouroCCKWULWNHS0352-00-47 05:42:00 Test Item Value Reference Range Interpretation Comments Platelet (test code = Platelet) 317 133-450 [facility]2018-05-07 09:36:00 Test Item Value Reference Range Interpretation Comments Globulin (test code = Globulin) 4.4 2.7-4.2 [facility]2018-05-07 09:36:00 Test Item Value Reference Range Interpretation Comments A/G Ratio (test code = A/G Ratio) 0.6 1 0.7-1.6 [facility]2018-05-07 09:36:00 Test Item Value Reference Range Interpretation Comments B/C Ratio (test code = B/C Ratio) 17 1 6-25 [facility]2018-05-07 09:36:00 Test Item Value Reference Range Interpretation Comments AGAP (test code = AGAP) 11.3 10.0-20.0 [facility]2018-05-07 09:36:00 Test Item Value Reference Range Interpretation Comments eGFR (test code = eGFR) 134 [facility]2018-05-07 09:36:00 Test Item Value Reference Range Interpretation Comments Creatinine Lvl (test code = Creatinine 0.84 0.50-1.40 Lvl) [facility]2018-05-07 09:36:00 Test Item Value Reference Range Interpretation Comments Sodium Lvl (test code = Sodium Lvl) 142 135-145 [facility]2018-05-07 09:36:00 Test Item Value Reference Range Interpretation Comments Glucose Lvl (test code = Glucose Lvl) 99 70-99 [facility]2018-05-07 09:36:00 Test Item Value Reference Range Interpretation Comments BUN (test code = BUN) 14 7-22 [facility]2018-05-07 09:36:00 Test Item Value Reference Range Interpretation Comments Alk Phos (test code = Alk Phos) 79 39-136 [facility]2018-05-07 09:36:00 Test Item Value Reference Range Interpretation Comments Bili Total (test code = Bili Total) 0.3 0.2-1.3 [facility]2018-05-07 09:36:00 Test Item Value Reference Range Interpretation Comments AST (test code = AST) 14 See_Comment [Auto mated message] The system which ge nerated this result transmit lester reference range : <=37. The reference range was not used to interpr et this result as dany l/abnormal. [facility]2018-05-07 09:36:00 Test Item Value Reference Range Interpretation Comments ALT (test code = ALT) 43 See_Comment [Auto mated message] The system which ge nerated this result transmit lester reference range : <=65. The reference range was not used to interpr et this result as dany l/abnormal. [facility]2018-05-07 09:36:00 Test Item Value Reference Range Interpretation Comments Total Protein (test code = Total 7.1 6.4-8.4 Protein) [facility]2018-05-07 09:36:00 Test Item Value Reference Range Interpretation Comments Albumin Lvl (test code = Albumin Lvl) 2.7 3.5-5.0 [facility]2018-05-07 09:36:00 Test Item Value Reference Range Interpretation Comments Calcium Lvl (test code = Calcium Lvl) 9.2 8.5-10.5 [facility]2018-05-07 09:36:00 Test Item Value Reference Range Interpretation Comments CO2 (test code = CO2) 21 24-32 [facility]2018-05-07 09:36:00 Test Item Value Reference Range Interpretation Comments Potassium Lvl (test code = Potassium 4.3 3.5-5.1 Lvl) [facility]2018-05-07 09:36:00 Test Item Value Reference Range Interpretation Comments Chloride Lvl (test code = Chloride Lvl) 114 95-109 [facility] HospitalEawjwjxOAFIFFOKVA9032-31-81 09:36:00 Test Item Value Reference Range Interpretation Comments MCHC (test code = MCHC) 32.5 32.0-36.0 [facility]KwgfhnmVTGTFNUIIW9238-33-20 09:36:00 Test Item Value Reference Range Interpretation Comments RDW (test code = RDW) 17.5 11.5-14.5 [facility] HospitalWckaaayLRLMEFTMDD5932-12-41 09:36:00 Test Item Value Reference Range Interpretation Comments Platelet (test code = Platelet) 400 133-450 [facility] HospitalBbnyvmzZNKGZSAKST0168-28-92 09:36:00 Test Item Value Reference Range Interpretation Comments MPV (test code = MPV) 8.5 7.4-10.4 [facility] HospitalPgvkuvuCNCEAKMPUJ7793-91-15 09:36:00 Test Item Value Reference Range Interpretation Comments WBC (test code = WBC) 6.6 3.7-10.4 [facility] HospitalQvptvbpUTZFMODBCB5167-62-47 09:36:00 Test Item Value Reference Range Interpretation Comments RBC (test code = RBC) 5.17 4.70-6.10 [facility] HospitalLtuihjgFKNALVMFXK7124-36-05 09:36:00 Test Item Value Reference Range Interpretation Comments MCV (test code = MCV) 86.1 80.0-94.0 [facility] HospitalOfiduitJWXVEQIRGK6829-80-30 09:36:00 Test Item Value Reference Range Interpretation Comments Hct (test code = Hct) 44.5 42.0-54.0 [facility] HospitalEtsdqwvNZTXWNBPLG8237-57-77 09:36:00 Test Item Value Reference Range Interpretation Comments MCH (test code = MCH) 28.0 pg 27.0-31.0 [facility] HospitalCjsnkymTIRUMZJSOU4939-75-72 09:36:00 Test Item Value Reference Range Interpretation Comments Hgb (test code = Hgb) 14.5 14.0-18.0 [facility] HospitalPvymrqoTEWPHNBPUC2168-16-01 09:36:00 Test Item Value Reference Range Interpretation Comments Lymphocytes # (test code = Lymphocytes 1.7 1.0-5.5 #) [facility] HospitalOvsrbvfMYTGTHPKED8898-85-57 09:36:00 Test Item Value Reference Range Interpretation Comments Monocytes # (test code 0.7 See_Comment [Aut omated message] The = Monocytes #) system which generated this result tra nsmitted reference range : <=0.8. The reference r boubacar was not used to int erpret this result as normal/abnormal . [facility] HospitalHlcswxtDFJWQYJUHL9126-67-45 09:36:00 Test Item Value Reference Range Interpretation Comments Eosinophils # (test code 0.2 See_Comment [A utomated message] The = Eosinophils #) system whic h generated this result tra nsmitted reference range : <=0.5. The reference r boubacar was not used to int erpret this result as normal/abnormal . [facility] HospitalEqlszovTERPLZXRHD5060-47-91 09:36:00 Test Item Value Reference Range Interpretation Comments Lymphocytes (test code = Lymphocytes) 26.1 20.0-40.0 [facility] HospitalHbvvqlqRZHTRMRMAU3650-97-26 09:36:00 Test Item Value Reference Range Interpretation Comments Segs (test code = Segs) 59.3 45.0-75.0 [facility] HospitalRjxbcvwHQNUERFJPQ1728-84-71 09:36:00 Test Item Value Reference Range Interpretation Comments Basophils (test code = 0.8 See_Comment [Aut omated message] The Basophils) system which ge nerated this result tra nsmitted reference range : <=1.0. The reference r boubacar was not used to int erpret this result as normal/abnormal . [facility] HospitalKchhgmbACSGRUVBHE8330-31-02 09:36:00 Test Item Value Reference Range Interpretation Comments Monocytes (test code = Monocytes) 10.5 2.0-12.0 [facility] HospitalNiwohebDPHLPDZJMK5207-51-38 09:36:00 Test Item Value Reference Range Interpretation Comments Eosinophils (test code = 3.3 See_Comment [A utomated message] The Eosinophils) system which ge nerated this result tra nsmitted reference range : <=4.0. The reference r boubacar was not used to int erpret this result as normal/abnormal . [facility] HospitalYsodkvvTTUUEUEVTX8661-38-40 09:36:00 Test Item Value Reference Range Interpretation Comments Segs-Bands # (test code = Segs-Bands #) 3.9 1.5-8.1 [facility]hpbtvkFJLTSPOACD4252-78-66 21:02:00 Test Item Value Reference Range Interpretation Comments Vanco Tr TND (test code = Vanco Tr 15:30pm TND) [facility]taIOFEMOGZJW9037-39-41 21:02:00 Test Item Value Reference Range Interpretation Comments Vanco Tr (test code = Vanco Tr) 9.1 [facility]2018-05-06 07:07:00 Test Item Value Reference Range Interpretation Comments Glucose Lvl (test code = Glucose Lvl) 74 70-99 [place] 808028-05-06 07:07:00 Test Item Value Reference Range Interpretation Comments BUN (test code = BUN) 12 7-22 [place] 808028-05-06 07:07:00 Test Item Value Reference Range Interpretation Comments Creatinine Lvl (test code = Creatinine 0.75 0.50-1.40 Lvl) [place] 808028-05-06 07:07:00 Test Item Value Reference Range Interpretation Comments eGFR (test code = eGFR) 140 [place] 808028-05-06 07:07:00 Test Item Value Reference Range Interpretation Comments Albumin Lvl (test code = Albumin Lvl) 2.9 3.5-5.0 [place] [address]-05-06 07:07:00 Test Item Value Reference Range Interpretation Comments Globulin (test code = Globulin) 4.4 2.7-4.2 [place] 808028-05-06 07:07:00 Test Item Value Reference Range Interpretation Comments A/G Ratio (test code = A/G Ratio) 0.7 1 0.7-1.6 [place] [address]-05-06 07:07:00 Test Item Value Reference Range Interpretation Comments Bili Total (test code = Bili Total) 0.4 0.2-1.3 [place] 808028-05-06 07:07:00 Test Item Value Reference Range Interpretation Comments Alk Phos (test code = Alk Phos) 71 39-136 [place] 808028-05-06 07:07:00 Test Item Value Reference Range Interpretation Comments AST (test code = AST) 15 See_Comment [Auto mated message] The system which ge nerated this result transmit lester reference range : <=37. The reference range was not used to interpr et this result as dany l/abnormal. [place] 808028-05-06 07:07:00 Test Item Value Reference Range Interpretation Comments ALT (test code = ALT) 28 See_Comment [Auto mated message] The system which ge nerated this result transmit lester reference range : <=65. The reference range was not used to interpr et this result as dany l/abnormal. [place] 808028-05-06 07:07:00 Test Item Value Reference Range Interpretation Comments Potassium Lvl (test code = Potassium 4.4 3.5-5.1 Lvl) [facility]2018-05-06 07:07:00 Test Item Value Reference Range Interpretation Comments Sodium Lvl (test code = Sodium Lvl) 147 135-145 [place] 808028-05-06 07:07:00 Test Item Value Reference Range Interpretation Comments CO2 (test code = CO2) 25 24-32 [place] 808028-05-06 07:07:00 Test Item Value Reference Range Interpretation Comments Chloride Lvl (test code = Chloride Lvl) 114 95-109 [place] 808028-05-06 07:07:00 Test Item Value Reference Range Interpretation Comments B/C Ratio (test code = B/C Ratio) 16 1 6-25 [place] 808028-05-06 07:07:00 Test Item Value Reference Range Interpretation Comments Calcium Lvl (test code = Calcium Lvl) 8.7 8.5-10.5 [facility]2018-05-06 07:07:00 Test Item Value Reference Range Interpretation Comments AGAP (test code = AGAP) 12.4 10.0-20.0 [facility]2018-05-06 07:07:00 Test Item Value Reference Range Interpretation Comments Total Protein (test code = Total 7.3 6.4-8.4 Protein) [facility] HospitalMmoetjqLUDPDKIXRO1151-51-86 07:07:00 Test Item Value Reference Range Interpretation Comments Platelet (test code = Platelet) 345 133-450 [facility] HospitalMakyzmoHTVBFWMDXC5813-04-15 07:07:00 Test Item Value Reference Range Interpretation Comments MPV (test code = MPV) 8.7 7.4-10.4 [place] 258608-05-06 07:07:00 Test Item Value Reference Range Interpretation Comments WBC (test code = WBC) 6.9 3.7-10.4 [facility] HospitalPjgplbkQHFRIVSOXP6108-33-29 07:07:00 Test Item Value Reference Range Interpretation Comments RBC (test code = RBC) 5.30 4.70-6.10 [place] 258608-05-06 07:07:00 Test Item Value Reference Range Interpretation Comments MCHC (test code = MCHC) 32.8 32.0-36.0 [facility] HospitalRoszgqxTEQGICQLPH6927-14-14 07:07:00 Test Item Value Reference Range Interpretation Comments MCH (test code = MCH) 27.9 pg 27.0-31.0 [facility] HospitalMdlopmvWBVJPIBGRY7192-42-29 07:07:00 Test Item Value Reference Range Interpretation Comments Hgb (test code = Hgb) 14.8 14.0-18.0 [facility] HospitalVpgdjfsANHEHVZOPX7518-59-34 07:07:00 Test Item Value Reference Range Interpretation Comments MCV (test code = MCV) 85.0 80.0-94.0 [facility] HospitalJfkotfeVGQXGLHTLZ1976-74-00 07:07:00 Test Item Value Reference Range Interpretation Comments Hct (test code = Hct) 45.1 42.0-54.0 [facility] HospitalOriyjisWJBWQVAUKS6315-16-86 07:07:00 Test Item Value Reference Range Interpretation Comments RDW (test code = RDW) 17.5 11.5-14.5 [facility] HospitalVshufpjRPIKDLJEMS7397-97-90 07:07:00 Test Item Value Reference Range Interpretation Comments Eosinophils # (test code 0.2 See_Comment [A utomated message] The = Eosinophils #) system whic h generated this result tra nsmitted reference range : <=0.5. The reference r boubacar was not used to int erpret this result as normal/abnormal . [facility] HospitalZdjsnlvLLOJOWJRKC6256-82-44 07:07:00 Test Item Value Reference Range Interpretation Comments Lymphocytes # (test code = Lymphocytes 2.0 1.0-5.5 #) [facility] HospitalQfqqjdkTKDVNNXUZD9378-22-53 07:07:00 Test Item Value Reference Range Interpretation Comments Monocytes # (test code 0.7 See_Comment [Aut omated message] The = Monocytes #) system which generated this result tra nsmitted reference range : <=0.8. The reference r boubacar was not used to int erpret this result as normal/abnormal . [facility] HospitalQwubhhvFERQRPMEPA2017-66-78 07:07:00 Test Item Value Reference Range Interpretation Comments Eosinophils (test code = 2.4 See_Comment [A utomated message] The Eosinophils) system which ge nerated this result tra nsmitted reference range : <=4.0. The reference r boubacar was not used to int erpret this result as normal/abnormal . [facility] HospitalXqkmixbNWUXFJLOJW7919-11-88 07:07:00 Test Item Value Reference Range Interpretation Comments Basophils (test code = 0.6 See_Comment [Aut omated message] The Basophils) system which ge nerated this result tra nsmitted reference range : <=1.0. The reference r boubacar was not used to int erpret this result as normal/abnormal . [facility] HospitalQitxvovWXGGVECYPF2232-69-66 07:07:00 Test Item Value Reference Range Interpretation Comments Segs-Bands # (test code = Segs-Bands #) 4.0 1.5-8.1 [facility] HospitalMmfhkubATJCEGSIHQ9011-68-95 07:07:00 Test Item Value Reference Range Interpretation Comments Monocytes (test code = Monocytes) 10.4 2.0-12.0 [facility] HospitalLhavewxJSXLILYDDF7486-18-17 07:07:00 Test Item Value Reference Range Interpretation Comments RBC Morph (test code = Normal (11/17/17 2:07 AM) RBC Morph) [facility] HospitalGbnbcwbOULQTAFUZW9570-23-61 07:07:00 Test Item Value Reference Range Interpretation Comments Segs (test code = Segs) 58.1 45.0-75.0 [facility] HospitalNdunsqmBMLVFCXYVU4508-19-29 07:07:00 Test Item Value Reference Range Interpretation Comments Plt Morph (test code = Normal (11/17/17 2:07 AM) Plt Morph) [facility] HospitalZsjmylcMZQDLQFZZE8446-02-38 07:07:00 Test Item Value Reference Range Interpretation Comments Lymphocytes (test code = Lymphocytes) 28.5 20.0-40.0 [facility] HospitalXvapgzxTPIOCQQPKI8295-38-95 16:07:00 Test Item Value Reference Range Interpretation Comments Basophils # (test code 0.1 See_Comment [Aut omated message] The = Basophils #) system which generated this result tra nsmitted reference range : <=0.2. The reference r boubacar was not used to int erpret this result as normal/abnormal . [facility] HospitalLtcetsbUYFQHLSIAW5575-74-78 16:07:00 Test Item Value Reference Range Interpretation Comments Polychrom (test code = Moderate *ABN*(11/16/17 Polychrom) 11:07 AM) [facility]suwjlfHPOYDDXPPI6763-72-67 06:43:00 Test Item Value Reference Range Interpretation Comments Vanco Tr TND (test code = Vanco Tr TND) * [facility] HospitalJsiyzuvGRKLRPKOLW1081-53-05 06:43:00 Test Item Value Reference Range Interpretation Comments Vanco Tr (test code = Vanco Tr) 22.3 [facility]2018-05-04 11:45:00 Test Item Value Reference Range Interpretation Comments Magnesium Lvl (test code = Magnesium 2.3 1.8-2.4 Lvl) [facility]2018-05-04 11:45:00 Test Item Value Reference Range Interpretation Comments Phosphorus (test code = Phosphorus) 3.5 2.5-4.5 [facility] HospitalSguegtzNBUVMIBASQ5582-55-67 11:45:00 Test Item Value Reference Range Interpretation Comments PT (test code = PT) 14.0 s 12.0-14.7 [facility] HospitalLmfxtovJMFPMJCYES3070-88-71 11:45:00 Test Item Value Reference Range Interpretation Comments PTT (test code = PTT) 37.6 s 22.9-35.8 [facility] HospitalQvmpcslVDVOKONXIM9535-67-65 11:45:00 Test Item Value Reference Range Interpretation Comments INR (test code = INR) 1.08 1 0.85-1.17 [facility]XdmhkyvRQMTSEPPQK0278-52-87 11:45:00 Test Item Value Reference Range Interpretation Comments C-REACTIVE PROTEIN (test code = 13.1 C-REACTIVE PROTEIN) [facility] HospitalIieubjrODLZFEJGSF7910-04-24 11:45:00 Test Item Value Reference Range Interpretation Comments Prealbumin (test code = Prealbumin) 25.2 18.0-45.0 [facility]2018-05-04 03:06:00 Test Item Value Reference Range Interpretation Comments Lactic Acid Lvl (test code = Lactic 0.9 0.5-2.2 Acid Lvl) [facility] HospitalCzpigvfGZBVCCONON2902-25-21 03:06:00 Test Item Value Reference Range Interpretation Comments Sed Rate (test code = 5 See_Comment [Auto mated message] The Sed Rate) system which ge nerated this result transmit lester reference range : <=15. The reference range was not used to interpr et this result as dany l/abnormal. [facility] HospitalKxdjhwfFNBDVVCMMO0637-78-81 03:06:00 Test Item Value Reference Range Interpretation Comments C-REACTIVE PROTEIN (test code = 15.8 C-REACTIVE PROTEIN) [facility] HospitalXmxhrbcCWZWRCPIXK0386-58-01 00:44:00 Test Item Value Reference Range Interpretation Comments PT (test code = PT) 13.0 s 12.0-14.7 [facility] HospitalIukohvcWNTBYRBTCK2301-90-68 00:44:00 Test Item Value Reference Range Interpretation Comments INR (test code = INR) 0.98 1 0.85-1.17 [facility] HospitalTizofklUMVUYVPIXP7985-84-01 00:44:00 Test Item Value Reference Range Interpretation Comments PTT (test code = PTT) 33.2 s 22.9-35.8 [facility] LJBGMFY7027-35-12 23:51:00 Test Item Value Reference Range Interpretation Comments Antibody Scrn (test Negative (11/14/17 6:51 code = Antibody Scrn) PM) [facility] [id number] 23:51:00 Test Item Value Reference Range Interpretation Comments ABO/Rh (test code = ABO/Rh) AB POS [facility] AND [id number] 23:35:00 Test Item Value Reference Range Interpretation Comments UA Urobilinogen (test code = UA 0.2 0.1-1.0 Urobilinogen) [facility] AND [id number] 23:35:00 Test Item Value Reference Range Interpretation Comments UA Nitrite (test code Negative (11/14/17 6:35 = UA Nitrite) PM) [facility] AND [id number] 23:35:00 Test Item Value Reference Range Interpretation Comments UA Glucose (test code Negative (11/14/17 6:35 = UA Glucose) PM) [facility] AND [id number] 23:35:00 Test Item Value Reference Range Interpretation Comments UA Ketones (test code Negative *NA*(11/14/17 = UA Ketones) 6:35 PM) [facility] AND [id number] 23:35:00 Test Item Value Reference Range Interpretation Comments UA Bili (test code = Negative *NA*(11/14/17 UA Bili) 6:35 PM) [facility] AND [id number] 23:35:00 Test Item Value Reference Range Interpretation Comments UA Blood (test code = Trace *ABN*(11/14/17 UA Blood) 6:35 PM) [facility] AND [id number] 23:35:00 Test Item Value Reference Range Interpretation Comments UA Leuk Est (test code Small *ABN*(11/14/17 6:35 = UA Leuk Est) PM) [facility] [id number] 23:35:00 Test Item Value Reference Range Interpretation Comments UA Spec Grav (test code = UA Spec 1.020 1 Grav) [facility] [id number] 23:35:00 Test Item Value Reference Range Interpretation Comments UA pH (test code = UA pH) 6.0 1 5.0-8.0 [facility] [id number] 23:35:00 Test Item Value Reference Range Interpretation Comments UA Color (test code = Yellow *NA*(11/14/17 6:35 UA Color) PM) [facility] [id number] 23:35:00 Test Item Value Reference Range Interpretation Comments UA Protein (test code = Trace *ABN*(11/14/17 UA Protein) 6:35 PM) [facility] [id number] 23:35:00 Test Item Value Reference Range Interpretation Comments UA Turbidity (test code Slight Cloudy (11/14/17 = UA Turbidity) 6:35 PM) [facility] [id number] 23:35:00 Test Item Value Reference Range Interpretation Comments UA Hyal Cast 0-2 (11/14/17 6:35 See_Comment [Automated message] (test code = UA PM) The system w [facility] Hyal Cast) generated this result transmitted ref erence range: <=2. The reference range was not used to int erpret this result as normal/abnormal . [facility] [id number] 23:35:00 Test Item Value Reference Range Interpretation Comments UA Bacteria (test code = UA Occasional /HPF Bacteria) [facility] [id number] 23:35:00 Test Item Value Reference Range Interpretation Comments UA RBC (test code 11-20 /HPF See_Comment [Automate d message] The = UA RBC) system which ge nerated this result tra nsmitted reference range : <=2. The reference range was not used to interpr et this result as normal/abnormal . [facility] [id number] 23:35:00 Test Item Value Reference Range Interpretation Comments UA Sq Epi (test code = UA Sq Occasional /LPF Epi) [facility] AND [id number] 23:35:00 Test Item Value Reference Range Interpretation Comments UA WBC (test code = UA WBC) 51-100 /[facility]KNDWMX9336[facility]-98 23:20:00 Test Item Value Reference Range Interpretation Comments Basophils # (test code 0.1 See_Comment [Aut omated message] The = Basophils #) system which generated this result tra nsmitted reference range : <=0.2. The reference r boubacar was not used to int erpret this result as normal/abnormal . [facility] HospitalToiaohfBLZDVYKNJP7730-79-45 23:20:00 Test Item Value Reference Range Interpretation Comments Polychrom (test code = Polychrom) Slight [facility] HospitalEoowqycRLJZQVKEFN2990-11-73 23:20:00 Test Item Value Reference Range Interpretation Comments Plt Morph (test code = Normal (11/14/17 6:20 PM) Plt Morph) [facility] [id number] 16:22:00 Test Item Value Reference Range Interpretation Comments CULTURE (BEAKER) (test No growth in 5 days code = 1095) BLOOD [id number] 16:22:00 Test Item Value Reference Range Interpretation [...] Normal 762) CBC W/PLT COUNT & AUTO [id number] 22:28:00 Test Item Value Reference Range Interpretation [...] 0.00-0.20 (test code = 417) 0.000.520.000.000.000.00BASI METABOLIC [id number] 11:11:00 Test Item Value Reference Range Interpretation [...] NOT APPLICABLE FOR DIALYSIS PATIEN TS. URINE [id number] 09:56:00 Test Item Value Reference Range Interpretation Comments CULTURE (BEAKER) (test <10,000 col/mL skin code = 1095) marilee COMPREHENSIVE METABOLIC [id number] 08:49:00 Test Item Value Reference Range Interpretation [...] PATIEN TS. CBC W/PLT COUNT & AUTO CKIDJSQQGCFV7929-69-65 08:46:00 Test Item Value Reference Range Interpretation [...] 0.00-0.20 (test code = 417) 0.00URINALYSIS W/ XMOAILXSGDW9099-69-01 20:36:00 Test Item Value Reference Range Interpretation [...] 520) 182 /HPF SOURCE(BEAKER) (test code = 6792) BASIC METABOLIC [id number] 17:00:00 Test Item Value Reference Range Interpretation [...] Specimen slightly ictericCBC W/PLT COUNT & AUTO RUVSLFLCIAUV4823-27-08 12:18:00 Test Item Value Reference Range Interpretation [...]
[2021-09-25] MEDS ORDERED: PROMETHAZINE INJ 25 MG/ML AMP ONE (22:28)
[2021-09-25] MEDS ORDERED: HYDROMORPHONE HCL 1 MG/ML INJ ONE (22:29)
[2021-09-25] MEDS ORDERED: NA CHLORIDE 0.9% 1,000 ML ONE (22:29)
[2021-09-25 22:38] LABS: Absolute Lymphocytes (CBC) 2.6 K/uL (0.7-4.9); Hematocrit 49.5 % (39.6-49.0); MPV 8.8 fL (7.6-11.3); RBC Red Blood Cell Count 5.68 M/uL (4.33-5.43)
[2021-09-25 22:51] LABS: ALT/SGPT 52 U/L (12-78); AST/SGOT 18 U/L (15-37); Albumin 3.5 g/dL (3.4-5.0); Alkaline Phosphatase 120 U/L (45-117); BUN Blood Urea Nitrogen 14 mg/dL (7-18); Bicarbonate 23 mmol/L (21-32); Bilirubin Direct 0.1 mg/dL (0-0.2); Bilirubin Total 0.5 mg/dL (0.2-1.0); Glucose Level 92 mg/dL (74-106); Lipase 94 U/L (73-393); Potassium 3.8 mmol/L (3.5-5.1); Protein, Total 8.5 g/dL (6.4-8.2); Sodium Level 136 mmol/L (136-145)
--- NOTE | 2021-09-26 01:31 | EDPHYS ---
Physician Documentation [facility] Name: Roland Feldman Jr Age: 36 yrs Sex: Male : 1985 Arrival Date: 09/25/2021 Time: 20:43 Bed 17 Private MD: JESSICA Physician Sky Tran HPI: 09/25 21:30 This 36 yrs old Black Male presents to ER via Unassigned with complaints of Abd Pain > cp 50 y/o. 21:30 The patient presents with abdominal pain in the upper abdomen. Onset: The cp symptoms/episode began/occurred 2 week(s) ago. The symptoms do not radiate. Associated signs and symptoms: Pertinent positives: nausea and vomiting, Pertinent negatives: chest pain, constipation, diarrhea, fever. The symptoms are described as constant. Severity of pain: in the emergency department the pain is unchanged despite home interventions. Historical: - Allergies: 23:23 Amoxicillin; sv1 23:23 Bactrim; sv1 23:23 Ciprofloxacin; sv1 23:23 CLAVULANIC ACID; sv1 23:23 Demerol; sv1 23:23 Doxycycline; sv1 23:23 Levofloxacin; sv1 23:23 Morphine; sv1 23:23 PENICILLINS; sv1 23:23 Toradol; sv1 23:23 TRIMETHOPRIM; sv1 23:23 Vancomycin; sv1 23:23 Zofran; sv1 - Home Meds: 23:23 Celexa 20 mg Oral tab 1 tab once daily [Active]; fentanyl 25 mcg/hr Topical pt72 1 sv1 patch every 72 hours [Active]; Pepcid 20 mg Oral tab 1 tab once daily [Active]; Percocet 10-325 mg Oral tab 1 tab every 6 hours [Active]; Reglan 10 mg Oral tab 1 tab once daily [Active]; Wellbutrin SR 150 mg Oral TbER 1 tab 2 times per day [Active]; - PMHx: 23:23 Asthma; Cerebral Palsy; cluster headaches; decubitus ulcers on feet; GERD; sv1 Hydrocephalus; Hypertension; spina bifida; - Immunization history:: Adult Immunizations up to date, Client reports receiving the 2nd dose of the Covid vaccine. - Social history:: Smoking status: Patient reports the use of cigarette tobacco products, Patient uses. ROS: 21:31 Eyes: Negative for injury, pain, redness, and discharge. cp 21:31 Constitutional: Negative for body aches, chills, fever, poor PO intake. 21:31 ENT: Negative for ear pain, sore throat, difficulty swallowing, difficulty handling secretions. 21:31 Cardiovascular: Negative for chest pain, palpitations. 21:31 Respiratory: Negative for cough, shortness of breath, wheezing. 21:31 Abdomen/GI: Positive for abdominal pain, nausea and vomiting, Negative for diarrhea, constipation, anorexia. 21:31 Back: Negative for radiated pain. 21:31 Neuro: Negative for altered mental status, headache. 21:31 All other systems are negative. Exam: 21:32 Head/Face: Normocephalic, atraumatic. cp 21:32 Constitutional: The patient appears in no acute distress, alert, awake, non-toxic, well developed, well nourished, obese. 21:32 Eyes: Periorbital structures: appear normal, Conjunctiva: normal, no exudate, no injection, Sclera: no appreciated abnormality, Lids and lashes: appear normal, bilaterally. 21:32 ENT: External ear(s): are unremarkable, Nose: is normal, Posterior pharynx: Airway: no evidence of obstruction, patent. 21:32 Chest/axilla: Inspection: normal. 21:32 Respiratory: the patient does not display signs of respiratory distress, Respirations: normal, no use of accessory muscles, no retractions, Breath sounds: are clear throughout, no decreased breath sounds, no stridor, no wheezing. 21:32 Abdomen/GI: Inspection: obese Bowel sounds: active, all quadrants, Palpation: soft, in all quadrants, moderate abdominal tenderness, in the right upper quadrant and left upper quadrant, rebound tenderness, is not appreciated, voluntary guarding, is elicited in the right upper quadrant and left upper quadrant. 21:32 Back: pain, is absent, ROM is normal. 21:32 Neuro: Orientation: to person, place \T\ time. Mentation: is normal. Vital Signs: 20:40 BP 131 / 93 LA Sitting (auto/reg); Pulse 96 MON; Resp 19 S; Temp 98.7; Pulse Ox 98% ; sv1 23:28 BP 132 / 106 LA Sitting (auto/); Pulse 90 MON; Resp 22 S; Pulse Ox 99% on R/A; Pain sv1 7/10; 03/15 01:02 BP 117 / 73 LA Sitting (auto/reg); Pulse 85 MON; Resp 18 S; Pulse Ox 99% on R/A; sv1 02:08 BP 110 / 67 LA Sitting (auto/reg); Pulse 86 MON; Resp 17; Temp 97.6; Pulse Ox 94% on sv1 R/A; MDM: 09/25 20:47 Patient medically screened. cp 21:34 Differential diagnosis: bowel obstruction, gastritis, non-specific abd pain, cp pancreatitis, Pyelonephritis, Ureterolithiasis. 09/26 01:29 Data reviewed: vital signs, nurses notes, lab test result(s), radiologic studies, CT jr8 scan. Data interpreted: Pulse oximetry: on room air is 99 %. Interpretation: normal. Counseling: I had a detailed discussion with the patient and/or guardian regarding: the historical points, exam findings, and any diagnostic results supporting the discharge/admit diagnosis, lab results, radiology results, the need for outpatient follow up, a family practitioner, a chief strategy officer, to return to the emergency department if symptoms worsen or persist or if there are any questions or concerns that arise at home. Response to treatment: the patient's symptoms have markedly improved after treatment. Special discussion: Based on the patient's Hx, exam, and Dx evaluation, there is no indication for emergent surgery or inpatient Tx. It is understood by the patient/guardian that if the Sx's persist or worsen they need to return immediately for re-evaluation. 09/25 20:49 Order name: Basic Metabolic Panel; Complete Time: 23:15 cp 09/25 20:49 Order name: CBC with Diff; Complete Time: 23:15 cp 09/25 20:49 Order name: Hepatic Function; Complete Time: 23:15 cp 09/25 20:49 Order name: Lipase; Complete Time: 23:15 cp 09/25 20:49 Order name: CT Abd/Pelvis - IV Contrast Only cp 09/25 20:49 Order name: IV Saline Lock; Complete Time: 22:23 cp 09/25 20:49 Order name: Labs collected and sent; Complete Time: 22:23 cp Administered Medications: 09/25 22:36 Drug: Phenergan (promethazine) 25 mg Route: IVP; Site: right forearm; sv1 09/26 00:20 Follow up: Response: No adverse reaction; Nausea is decreased sv1 01:54 Follow up: Response: No adverse reaction; Nausea is decreased sv1 09/25 22:36 Drug: Dilaudid (HYDROmorphone) 1 mg Route: IVP; Site: right forearm; sv1 09/26 00:20 Follow up: Response: Pain is decreased sv1 01:54 Follow up: Response: No adverse reaction; Pain is decreased sv1 09/25 22:36 Drug: NS 0.9% 1000 ml Route: IV; Rate: 1000 ml/hr; Site: right forearm; sv1 09/26 00:19 Follow up: Response: No adverse reaction; IV Status: Completed infusion sv1 01:53 Follow up: Response: No adverse reaction; IV Status: Completed infusion sv1 02:07 Drug: Dilaudid (HYDROmorphone) 1 mg Route: IVP; Site: right forearm; sv1 02:16 Follow up: Response: No adverse reaction; Pain is decreased sv1 02:07 Drug: Phenergan (promethazine) 25 mg Route: IVP; Site: right forearm; sv1 02:15 Follow up: Response: No adverse reaction; Nausea is decreased sv1 Disposition: 05:59 Co-signature as Attending Physician, Sky Tran MD. 7 Disposition Summary: 09/26/21 01:30 Discharge Ordered Location: Home jr8 Problem: new jr8 Symptoms: have improved jr8 Condition: Stable jr8 Diagnosis - Abdominal pain, Generalized jr8 Followup: jr8 - With: Private Physician - When: 2 - 3 days - Reason: Recheck today's complaints, Continuance of care, Re-evaluation by your physician Discharge Instructions: - Discharge Summary Sheet jr8 - Abdominal Pain, Adult jr8 Forms: - Medication Reconciliation Form jr8 - Thank You Letter jr8 - Antibiotic Education jr8 - Prescription Opioid Use jr8 - SBAR form tw5 Signatures: Dispatcher [employer] Buddy Roberto PA PA jr8 Clifton Cannon PA PA cp Holmes, Maurice, MD MD 7 Kiran Bundy RN RN sv1
--- NOTE | 2021-09-26 01:31 | ER ---
Nurse's Notes [facility] Name: Roland Feldman Jr Age: 36 yrs Sex: Male : 1985 Arrival Date: 09/25/2021 Time: 20:43 Bed 17 Private MD: Diagnosis: Abdominal pain, Generalized Presentation: 09/26 00:47 Chief complaint: Patient states: abd pain. Coronavirus screen: Client denies travel out sv1 of the [place] in the last 14 days. Ebola Screen: No symptoms or risks identified at this time. Initial Sepsis Screen: Does the patient meet any 2 criteria? No. Patient's initial sepsis screen is negative. Does the patient have a suspected source of infection? No. Patient's initial sepsis screen is negative. Risk Assessment: Do you want to hurt yourself or someone else? Patient reports no desire to harm self or others. Onset of symptoms was September 25, 2021. 00:47 Acuity: YUKI 3 sv1 00:47 Method Of Arrival: EMS: [facility] sv1 Triage Assessment: 00:47 General: Appears distressed, uncomfortable, obese, Behavior is cooperative, appropriate sv1 for age. Historical: - Allergies: 09/25 23:23 Amoxicillin; sv1 23:23 Bactrim; sv1 23:23 Ciprofloxacin; sv1 23:23 CLAVULANIC ACID; sv1 23:23 Demerol; sv1 23:23 Doxycycline; sv1 23:23 Levofloxacin; sv1 23:23 Morphine; sv1 23:23 PENICILLINS; sv1 23:23 Toradol; sv1 23:23 TRIMETHOPRIM; sv1 23:23 Vancomycin; sv1 23:23 Zofran; sv1 - Home Meds: 23:23 Celexa 20 mg Oral tab 1 tab once daily [Active]; fentanyl 25 mcg/hr Topical pt72 1 sv1 patch every 72 hours [Active]; Pepcid 20 mg Oral tab 1 tab once daily [Active]; Percocet 10-325 mg Oral tab 1 tab every 6 hours [Active]; Reglan 10 mg Oral tab 1 tab once daily [Active]; Wellbutrin SR 150 mg Oral TbER 1 tab 2 times per day [Active]; - PMHx: 23:23 Asthma; Cerebral Palsy; cluster headaches; decubitus ulcers on feet; GERD; sv1 Hydrocephalus; Hypertension; spina bifida; - Immunization history:: Adult Immunizations up to date, Client reports receiving the 2nd dose of the Covid vaccine. - Social history:: Smoking status: Patient reports the use of cigarette tobacco products, Patient uses. Screenin:23 Abuse screen: Denies threats or abuse. Nutritional screening: No deficits noted. sv1 Tuberculosis screening: No symptoms or risk factors identified. Fall Risk None identified. No fall in past 12 months (0 pts). Secondary diagnosis (15 points) IV access (20 points). Ambulatory Aid- Crutches/Cane/Walker (15 pts). Gait- Impaired (20 pts.). Mental Status- Oriented to own ability (0 pts). Assessment: 23:22 Pain: Complains of pain in abdomen Pain radiates to back. GI: Bowel sounds present X 4 sv1 quads. Abdomen is tender to palpation X 4 quads. 23:30 Reassessment: CT completed. Results pending.. sv1 09/26 02:20 Reassessment: Cleared for discharge to home by the provider. Medicated for pain. Pain sv1 decreased. . Vital Signs: 09/25 20:40 BP 131 / 93 LA Sitting (auto/reg); Pulse 96 MON; Resp 19 S; Temp 98.7; Pulse Ox 98% ; sv1 23:28 BP 132 / 106 LA Sitting (auto/); Pulse 90 MON; Resp 22 S; Pulse Ox 99% on R/A; Pain sv1 7/10; 09/26 01:02 BP 117 / 73 LA Sitting (auto/reg); Pulse 85 MON; Resp 18 S; Pulse Ox 99% on R/A; sv1 02:08 BP 110 / 67 LA Sitting (auto/reg); Pulse 86 MON; Resp 17; Temp 97.6; Pulse Ox 94% on sv1 R/A; ED Course: 09/25 20:43 Patient arrived in ED. tw5 20:44 Clifton Cannon PA is PHCP. cp 20:44 Sky Tran MD is Attending Physician. cp 21:22 Kiran Bundy, NAIF is Primary Nurse. sv1 22:23 Basic Metabolic Panel Sent. sv1 22:23 CBC with Diff Sent. sv1 22:23 Hepatic Function Sent. sv1 22:23 Lipase Sent. sv1 22:36 PHCP role handed off by Clifton Cannon PA jr8 22:36 Buddy Kumar PA is PHCP. jr8 23:23 Patient has correct armband on for positive identification. Placed in gown. Call light sv1 in reach. Side rails up X2. 23:53 CT Abd/Pelvis - IV Contrast Only In Process Unspecified. EDMS 09/26 00:47 Arm band placed on right wrist. sv1 00:48 Triage completed. sv1 02:08 No provider procedures requiring assistance completed. IV discontinued. sv1 Administered Medications: 09/25 22:36 Drug: Phenergan (promethazine) 25 mg Route: IVP; Site: right forearm; sv1 09/26 00:20 Follow up: Response: No adverse reaction; Nausea is decreased sv1 01:54 Follow up: Response: No adverse reaction; Nausea is decreased sv1 09/25 22:36 Drug: Dilaudid (HYDROmorphone) 1 mg Route: IVP; Site: right forearm; sv1 09/26 00:20 Follow up: Response: Pain is decreased sv1 01:54 Follow up: Response: No adverse reaction; Pain is decreased sv1 03 22:36 Drug: NS 0.9% 1000 ml Route: IV; Rate: 1000 ml/hr; Site: right forearm; sv1 09/26 00:19 Follow up: Response: No adverse reaction; IV Status: Completed infusion sv1 01:53 Follow up: Response: No adverse reaction; IV Status: Completed infusion sv1 02:07 Drug: Dilaudid (HYDROmorphone) 1 mg Route: IVP; Site: right forearm; sv1 02:16 Follow up: Response: No adverse reaction; Pain is decreased sv1 02:07 Drug: Phenergan (promethazine) 25 mg Route: IVP; Site: right forearm; sv1 02:15 Follow up: Response: No adverse reaction; Nausea is decreased sv1 Outcome: 01:30 Discharge ordered by MD. barrios 02:08 Discharged to home via ambulance. sv1 02:08 Condition: improved 02:08 Discharge instructions given to patient. 02:23 Patient left the ED. sv1 Signatures: Dispatcher [employer] EDAK Buddy Kumar PA PA jr8 Page, Corey, PA PA cp Wood, Tiffany tw5 Kiran Bundy, RN RN sv1
[2021-09-26] MEDS ORDERED: HYDROMORPHONE HCL 1 MG/ML INJ ONE (02:02)
[2021-09-26] MEDS ORDERED: PROMETHAZINE INJ 25 MG/ML AMP ONE (02:02)
[2021-09-26 03:14] VITALS: BP 110/67; TEMP 97.6; O2SAT 94
--- NOTE | 2021-09-26 12:32 | RAD REPORT ---
EXAM DESCRIPTION: CT - Abdomen Pelvis W Contrast - 09/26/2021 6:26 am CLINICAL HISTORY: ABD PAIN COMPARISON: 06/05/2021 TECHNIQUE: CT of the abdomen and pelvis performed following IV administration of iodinated contras t. This exam was performed according to our departmental dose-optimization program, which includes au tomated exposure control, adjustment of the mA and/or kV according to patient size and/or use of iter ative reconstruction technique. FINDINGS: Lung Bases: The visualized lung bases are clear. Bones: No destructive bone lesions identified. Abdomen: Liver: The liver has normal size and decreased density. No intrahepatic biliary dilatation. Gallbladder: Prior cholecystectomy. Spleen, Pancreas, and Adrenal Glands: The spleen, pancreas, and adrenal glands are unremarkable. Kidneys: No hydronephrosis or obstructing calculus. Vasculature: The aorta and IVC have normal caliber and position. The portal vein is patent. The pro ximal visceral and renal arteries are patent. Stomach: The stomach and duodenum have normal course. Other: No free intraperitoneal air. Mild bilateral inguinal lymphadenopathy. Ventriculoperitoneal shunt tubing partially visualized. Pelvis: Bladder: Suprapubic catheter in the urinary bladder. Wall thickening of the urinary bladder which i s decompressed. Bowel: No dilated loops of large or small bowel. Appendix: Normal appendix. Pelvis: Prostate is not enlarged. IMPRESSION: 1. Wall thickening of the urinary bladder which is decompressed. This could be seen wi th cystitis or may be related to underdistention. 2. Suprapubic catheter in the urinary bladder. 3. Hepatic steatosis. 4. Mild bilateral inguinal lymphadenopathy. This may be reactive. Electronically signed by: Diomedes Rodriguez 09/26/2021 1:15 AM CDT Due to temporary technical issues with the PACS/Fluency reporting system, reports are being signed by the in house radiologists without review as a courtesy to insure prompt reporting. The interpreting radiologist is fully responsible for the content of the report.
== END 2021-09-26 02:23 | disposition home or self-care (01) ==
LOC: ER 20:40
DX: R10.84 Generalized abdominal pain (principal); R11.2 Nausea with vomiting, unspecified; Z20.822 Contact with and (suspected) exposure to COVID-19; I10 Essential (primary) hypertension; K21.9 Gastro-esophageal reflux disease without esophagitis; Z72.0 Tobacco use; Z88.0 Allergy status to penicillin; Z88.1 Allergy status to other antibiotic agents; Z88.3 Allergy status to other anti-infective agents; Z88.5 Allergy status to narcotic agent; Z88.8 Allergy status to other drugs, medicaments and biological substances
CPT/HCPCS: 96361; 85025; 80048; 36415; 80076; 83690; 74177; 96375; 96374; 99284; Q9967; J2550 ×2; J1170 ×2; J7030

== ENCOUNTER 2021-09-26 06:46 | Day surgery (SDC) | payer OTHER ==
[2021-09-26] MEDS ORDERED: NA CHLORIDE 0.9% 0 ML ONE (07:38)
[2021-09-26] MEDS ORDERED: NA CHLORIDE 0.9% 1,000 ML ONE (07:39)
[2021-09-26] MEDS ORDERED: propofoL 200 MG/20 ML VIAL IV ONE (08:04)
[2021-09-26] MEDS ORDERED: LIDOCAINE 1% MPF 5 ML VIAL ONE (08:04)
[2021-09-26] MEDS ORDERED: HYDROMORPHONE HCL 1 MG/ML INJ ONE (08:50)
[2021-09-26 09:15] VITALS: BP 106/59; TEMP 96.4; O2SAT 97
--- NOTE | 2021-09-26 09:40 | OP ---
Surgeon: Avelino Youssef MD Procedure Performed: Esophagogastroduodenoscopy. Indication For Procedure: Abdominal pain, diarrhea. Plan For Anesthesia: Monitored anesthesia care. Complexity: Average. Technique: After obtaining informed consent from the patient and explaining risks and complications, which include, but are not limited to bleeding, infection, perforation, and anesthesia complication, the patient was placed in the left lateral position. Sedation was given. From then on, the scope w as advanced to the mouth and carefully guided up till the third portion of the duodenum. After compl etion of examination, scope and equipment were withdrawn and procedure terminated in a safe manner. Findings: Esophagus: No gross lesion seen in the entire esophagus. In the stomach, there was a moderate amount of gastric retention seen in the fundus and body. Theref ore, visualization was not very accurate. Some residual food was also seen in the antrum; however, m ild patchy erythema seen in the body and antrum as well. Biopsies were taken. I was able to intubat e the pylorus and did not pose any resistance, which indicates that there was no significant pyloric stenosis. Duodenum: The bulb and second portion appeared normal. Small bowel biopsies were taken. Complications: None. Tolerance To Anesthesia: Excellent. Postoperative Diagnoses: Gastric retention, gastritis. Plan: 1.Await pathology results. 2.Low-fiber diet, low residue diet, small frequent meals. 3.Oral PPI. 4.Follow up in the GI clinic in 2 weeks. US/MODL Voice ID: [id number] Report ID: [id number]
== END 2021-09-26 09:30 | disposition home or self-care (01) ==
LOC: OR 06:46
PROVIDERS: ATTEND Internal Medicine Gastroenterology
PROC: 0DB88ZX Excision of Small Intestine, Via Natural or Artificial Opening Endoscopic, Diagnostic (ICD-10-PCS; 2021-09-26)
PROC: 0DB68ZX Excision of Stomach, Via Natural or Artificial Opening Endoscopic, Diagnostic (ICD-10-PCS; principal; 2021-09-26 08:00)
DX: K29.50 Unspecified chronic gastritis without bleeding (principal); R10.9 Unspecified abdominal pain; R19.7 Diarrhea, unspecified; I10 Essential (primary) hypertension; E11.9 Type 2 diabetes mellitus without complications; E66.9 Obesity, unspecified; Z88.6 Allergy status to analgesic agent; Z88.1 Allergy status to other antibiotic agents; Z88.3 Allergy status to other anti-infective agents; Z79.84 Long term (current) use of oral hypoglycemic drugs; Z20.822 Contact with and (suspected) exposure to COVID-19
CPT/HCPCS: 88312; 82947; 88305; 43239; U0003; J2704; J1170; J7030; J7040

== ENCOUNTER 2021-09-29 18:12 | Emergency (ER) | payer OTHER ==
--- OUTSIDE RECORDS SUMMARY | 2021-09-29 18:22 | XMS REPORT | Continuity of Care Document ---
:1985 Author Organization [facility] t Address Formerly [facility] [place] [address] Care Team Providers Name Role Phone Sussy Varela Primary Care Physician Nichole Attending Clinician Unavailable CICI YANEZ Attending Clinician Unavailable Cici Lam Attending Clinician Duane GARCIA Attending Clinician Christ SERNA Attending Clinician Unavailable Christ Serna MD Attending Clinician Ellie NUNO Attending Clinician Kb BALDERRAMA Attending Clinician Unavailable Kb Lopez Attending Clinician Hi FONSECA Attending Clinician Unavailable Raymundo BOYLE G Attending Clinician Only, Db Test Attending Clinician Unavailable Toño NUNO Attending Clinician TOÑO Attending Clinician Unavailable HOOK Attending Clinician Unavailable Hook Attending Clinician Analia ROOM, F Attending Clinician Cassandra SAUNDERS Attending Clinician Unavailable MITCHELL Attending Clinician Unavailable LAMAR GENAO Attending Clinician Unavailable ELLIE Admitting Clinician Unavailable Ellie NUNO Admitting Clinician TAMELASABI Kb Admitting Clinician Unavailable Hi FONSECA Admitting Clinician Unavailable ALEX Admitting Clinician Unavailable LAMAR GENAO Admitting Clinician Unavailable Payers Payer Name Policy Type Policy Number Effective Date Expiration Date Christ [facility]awson [id number] 2020 00:00:00 Advance Directives Directive Decision Effective Termination Comments Source Date Date Healthcare Agents on N/A [facility] FileNameRelationshipHealcare [facility] Agent Medical RelationshipDo[facility] Of SpringfieldmunicationDor[facility] Care [phone] (Mobile) Problems Condition Condition Condition Status Onset Resolution Last Treating Co mments Source Name Details Category Date Date Treatment Clinician Date Complicate Complicate Disease Active U nivers d urinary d urinary 1-20 ity of tract tract 00:00: [place] infection infection 00 [facility] Hyperglyce Hyperglyce Disease Active [facility] pedro 1-07 [facility] without without 00:00: Medical ketosis ketosis 00 Center HEADACHE Diagnosis Active 2017-072017-11-20 M emoria 07-22 09:20:00 l HEADACHE 00:00: Christian n 00 Active [facility] SHUNT Diagnosis Active 2017-11-14 Mem oria MALFUNCTIO 11-14 20:00:00 l N SHUNT 00:00: [place] MALFUNCTIO 00 N Active 11/14/2017 [facility] ACUTE Diagnosis Active 2017-11-20 Mem oria HEADACHE - 09:20:00 l ACUTE 00:00: [place] HEADACHE 00 Active 11/14/2017 [facility] Spina Spina Disease Active [facility] bif[facility] bifida 12-24 [facility] - 00:[facility]: Medical 00 [place] Pyelonephr Pyelonephr Disease Active [facility] itis itis 12-23 [facility] - 00:00: Medical 00 [place] Morbid Morbid Disease Active Univers obesity obesity 1-04 [place] of with body [place] body 00:[place] mass [place] mass index 00 Me dical of 50 or of 50 or Branch higher higher Morbid Morbid Disease Active 2017-0 Univers obesity obesity 1-04 [place]y of with body with body 00:[place] mass index mass index 00 Me dical of of Branch 40.0-49.9 40.0-49.9 Spina Problem 2018-12-09 Memor ia bifida, 14:14:02 l unspecifie Spina Kristen nn d bifida, unspecifie d 12/09/2018 [facility] Nausea Problem 2018-12-09 Memor ia with 14:14:02 l vomiting, Nausea Kristen nn unspecifie with d vomiting, unspecifie d 12/09/2018 [facility] Diplopia Problem 2018-12-09 Mem oria 14:14:02 l Diplopia Christian n 12/09/2018 [facility] 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, 14:14:02 l unspecifie Cerebral He rmann d palsy, unspecifie d 12/09/2018 [facility] 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-09 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:14:02 l other Acquired Christian n specified absence of parts of other digestive specified tract parts of digestive tract 12/09/2018 [facility] Nicotine Problem 2018-12-09 Mem oria dependence 14:14:02 l , Nicotine Christian n cigarettes dependence , , uncomplica cigarettes lester , uncomplica lester 12/09/2018 [facility] Presence Problem 2018-12-09 Mem oria of 14:14:02 l cerebrospi Presence He rmann nal fluid of drainage cerebrospi device nal fluid drainage device 12/09/2018 [facility] Allergy Problem 2018-12-09 Erwin benjamin status to 14:14:02 l other Allergy [place] antibiotic status to agents other status antibiotic agents status 12/09/2018 [facility] Allergy Problem 2018-12-09 Erwin benjamin status to 14:14:02 l other Allergy [place] drugs, status to medicament other s and drugs, biological medicament substances s and status biological substances status 12/09/2018 [facility] Allergy Problem 2018-12-09 Erwin benjamin status to 14:14:02 l narcotic Allergy Kristen nn agent status to status narcotic agent status 12/09/2018 [facility] Asthma Problem Resolve 2019-03-06 Erwin benjamin (disorder) d 01:05:55 l Asthma Jason (disorder) Resolved Problem 03/06/2019 [facility] Bronchitis Problem Resolve 2019-03-06 Memoria (disorder) d 01:05:55 l [place] Bronchitis (disorder) Resolved Problem 03/06/2019 [facility] Cerebral Problem Resolve 2019-03-06 Me moria palsy d 01:05:55 l (disorder) Cerebral He rmann palsy (disorder) Resolved Problem 03/06/2019 [facility] Hydrocepha Problem Resolve 2019-03-06 Memoria bam d 01:05:55 l (disorder) Christian n Hydrocepha bam (disorder) Resolved Problem 03/06/2019 [facility] Osteomyeli Problem Resolve 2019-03-06 Memoria tis d 01:05:55 l (disorder) Christian n Osteomyeli tis (disorder) Resolved Problem 03/06/2019 [facility] Acute pain Problem Active 2019-03-06 M emoria (finding) 01:05:55 l Acute [place] pain (finding) Active Problem 03/06/2019 [facility] Headache Problem Active 2019-03-06 Mem oria (finding) 01:05:55 l Headache Christian n (finding) Active Problem 03/06/2019 [facility] History of Past Illness Condition Condition Condition Status Onset Resolution Last Treating Co mments Source Name Details Category Date Date Treatment Clinician Date Headache Problem 2017-072018-12-09 2018-12-09 Memoria -08 14:14:02 14:14:02 l Headache 06:00: Christian n 00 05/22/2018 12/09/2018 [facility] Allergies, Adverse Reactions, Alerts Allergy Allergy Status [...] Medical s Branch METOCLOP DRUG Active N/V 2016- Univers RAMIDE INGREDI 2-20 ity of HCL 00:00: [place] 00 Medical Branch Sulfamet Propensi Active Hives 2017-[address] [facility] hoxazole ty to 6-11 [facility] - -Trimeth adverse 00:00: Medical oprim reaction 00 Center s Levoflox Propensi Active Hives 2017- [facility] acin ty to 6-11 [facility] - adverse 00:00: Medical reaction 00 Center s SULFAMET Allergy Active High Hives 2017- [facility] HOXAZOLE 6-11 [facility] - -TRIMETH 00:00: Medical OPRIM 00 Center LEVOFLOX Allergy Active High Hives 2017- [facility] ACIN 6-11 [facility] - 00:00: Medical 00 Center MORPHINE Allergy Active High Hives 2017-[address] [facility] 6-11 [facility] - 00:00: Medical 00 Center KETOROLA Allergy Active High Rash 2017- [facility] C 6-11 [facility] - 00:00: Medical 00 Center VANCOMYC Allergy Active High Rash 2017- [facility] IN 6-11 [facility] - ANALOGUE 00:00: Medical S 00 Center SESAME Allergy Active Hives 2017-[address] [facility] SEED 6-11 [facility] - 00:00: Medical 00 Center Morphine Propensi Active Hives 2016- [facility] ty to 6-11 [facility] - adverse 00:00: Medical reaction 00 Center s ONDANSET Allergy Active N\\T\\V 2016- [facility] KUMAR HCL 6-11 [facility] - (PF) 00:00: Medical 00 Center Sesame Propensi Active Hives 2017- [facility] Seed ty to 6-11 [facility] - adverse 00:00: Medical reaction 00 Center s Ketorola Propensi Active Rash 2017- [facility] c ty to 6-11 [facility] - adverse 00:00: Medical reaction 00 Center s Vancomyc Propensi Active Rash 2017- [facility] in ty to 6-11 [facility] - Analogue adverse 00:00: Medical s reaction 00 Center s Ondanset Propensi Active Nausea And 2017-[address] kumar Hcl ty to Vomiting 6-11 [facility] - (Pf) adverse 00:00: Medical reaction 00 Center s Sulfa Propensi Active Other - See Uni vers (Sulfona ty to comments 1-04 ity of mide adverse 00:00: [place] Antibiot [...] Medical s Branch SULFA Drug Active Other-Cmnt Univer s (SULFONA Class 1-04 ity of MIDE 00:00: [place] ANTIBIOT 00 Medical ICS) Branch SULFAMET DRUG Active Other-Cmnt Univ ers HOPRIM 1 ity of DS 00:00: [place] 00 Medical Branch VANCOMYC DRUG Active Other-Cmnt Univ ers IN INGREDI 1 ity of 00:00: [place] 00 Medical Branch Sulfamet Propensi Active Rash 2014-0 Univer s hoxazole ty to 7-19 ity of adverse 00:00: [place] reaction 00 Medical s Branch Ondanset Propensi Active Nausea 2014-0 Univer s kumar Hcl ty to and/or 7-19 ity of (Pf) adverse Vomiting 00:00: [place] reaction 00 Medical s Branch SULFAMET DRUG Active Rash 2014-0 Univers HOXAZOLE INGREDI 7-19 ity of 00:00: [place] 00 Medical Branch ONDANSET DRUG Active N/V 2014-0 Univers KUMAR HCL 7-19 ity of (PF) 00:00: [place] 00 Medical Branch Levoflox Propensi Active Hives 2007-0 Univer s acin ty to 5-23 ity of adverse 00:00: [place] reaction 00 Medical s Branch Morphine Propensi Active Hives 2007-0 Univer s ty to 5-23 ity of adverse 00:00: [place] reaction 00 Medical s Branch Ketorola Propensi Active Nausea 2007-0 Univer s c ty to and/or 5-23 ity of Trometha adverse Vomiting 00:00: [place] mine reaction 00 Medical s Branch LEVOFLOX DRUG Active Hives 0 Univers ACIN INGREDI 5-23 ity of 00:00: [place] 00 Medical Branch MORPHINE DRUG Active Hives 2007-0 Univers INGREDI 5-23 ity of 00:00: [place] 00 [facility] KETOROLA DRUG Active N/V Univers C INGREDI 12-04 ity of TROMETHA 00:00: [facility] Morphine Adverse Active Info Not [facility] t Sulfate Reaction Available [facility] Levaquin Adverse Active Info Not [facility] Reaction Available [facility] Zofran Adverse Active Info Not [facility] Reaction Available [facility] Minocin Minocin Active Memoria l Jason Zofran Zofran Active Memoria l [facility] Levaquin Levaquin Active Memori a l Jason Bactrim Bactrim Active Memoria l [place] amoxicil amoxicil Active Memori [place] morphine morphine Active Memori a l Jason Toradol Toradol Active Memoria l [facility] Social History Social Habit Start Date Stop Date Quantity Comments Source History of tobacco Cigarette Smoker [facility] - use [facility] Exposure to Not sure [facility] SARS-CoV-2 (event) [facility] Alcohol intake 2021-08-04 2021-08-04 0 /d University of 00:00:00 00:00:00 [facility] Cigarettes smoked 2016-12-25 2016-12-25 [facility] - current (pack per 00:00:00 00:00:00 [facility] ) - Reported Tobacco use and 2016-07-18 2016-07-18 Never used Universit y of exposure 00:00:00 00:00:00 [facility] Sex [birth year] Universit y of 00:00:00 00:00:00 [facility] Smoking Status Start Date Stop Date Source Current every day smoker 2016-07-18 00:00:00 Uni versity of [facility] Medications Ordered Filled Start Stop Current Ordering Indication Dosage Frequency Signature Comments Components Source Medication Medication Date Date Medication? Clinician (SIG) Name Name feliciano- 2021- No 2{tbl} 2 tablet, Univers acetaminoph 09-29 Oral, ity of en-caff 03:45: 03:10 ONCE, 1 [place] (ESGIC) 00 :00 dose, On Medical 50-325-40 Libra Branch mg tablet 2 09/28/21 at tablet 2245, SAHARA NaCl 0.9% 2021- No 500mL at 999 Univ ers (NS) bolus 09-29 mL/hr, 500 it y of infusion 02:30: 03:17 mL, IV [place] 500 mL 00 :00 Infusion, Medical ONCE, 1 Branch dose, On Libra 09/28/21 at 2130, STAT diphenhydrA 2021- No 25mg 25 mg, Uni vers MINE 09-29 Slow IV ity of (BENADRYL) 02:30: 01:46 Push, [place] injection 00 :00 ONCE, 1 Medical 25 mg dose, On Branch Libra 09/28/21 at 2130, STAT magnesium 2021- No 2g 2 g, IV [facility] ers sulfate in 09-29 Piggyback, it y of water 2 02:15: 03:17 Administer Tim as gram/50 mL 00 :00 over 30 Medica l (4 %) Minutes, Branch infusion 2 ONCE, 1 g dose, On Libra 09/28/21 at 2115, Routine HYDROmorpho 2021- No .5mg 0.5 mg, Un ela ne 08-09 Slow IV ity of (DILAUDID) 01:30: 01:25 Push, [place] injection 00 :00 ONCE, 1 Medical 0.5 mg dose, On Branch 08/08/21 at 1930, Routine
Use approved by (Faculty): ADC PROVIDER levoFLOXaci 2021- Yes [id number] 750mg Take 1 Univers n 750 mg 08-09 tablet by ity o f tablet 00:00: 05:59 mouth [place] 00 :00 daily for Medical 4 days. Branch levoFLOXaci 2021- Yes [id number] 750mg Take 1 Univers n 750 mg 08-09 tablet by ity o f tablet 00:00: 05:59 mouth [place] 00 :00 daily for Medical 4 days. Branch OXYCODONE Yes Take by [facility] ers HCL/ACETAMI 1-25 mouth. ity of NOPHEN 19:49: [place] (PERCOCET 27 Medical ORAL) Branch OXYCODONE Yes Take by [facility] ers HCL/ACETAMI 1-25 mouth. ity of NOPHEN 19:49: [place] (PERCOCET 27 Medical ORAL) [place] OXYCODONE Yes Take by [facility] ers HCL/ACETAMI -25 mouth. ity of NOPHEN 19:49: [place] (PERCOCET 27 Medical ORAL) [place] vancomycin 2021- Yes 125mg 125 mg, Un [...] Yes 750mg 750 mg, Un ela n 25 Oral, ity of (LEVAQUIN) 15:00: DAILY, [place] tablet 750 00 First dose Med ical mg (after Branch last modificati on) on Sat08/08/21 at 0900, Until Discontinu ed, SAHARA
Re ason for Anti-Infec tive: Empiric Therapy for Suspected Infection< br>Empiric Therapy Site: Urine
D uration of therapy: 72 hours lactobacill 2021- Yes [id number] .5mg Take 1 Univers us 08-08-25 tablet by ity of acidophilus 00:00: 05:59 mouth 2 [place] 00 :00 (two) Medical times Branch daily for 30 days. lactobacill 2021- Yes [id number] .5mg Take 1 Univers us -08 09-25 tablet by ity of acidophilus 00:00: 05:59 mouth 2 [place] 00 :00 (two) Medical times Branch daily for 30 days. vancomycin 2021- Yes [id number] 125mg Take 1 Univers 125 mg 08-08 capsule by ity of capsule 00:00: 05:59 mouth 4 [place] 00 :00 (four) Medical times Branch daily for 5 days. vancomycin 2021- Yes [id number] 125mg Take 1 Univers 125 mg 08-08 capsule by ity of capsule 00:00: 05:59 mouth 4 [place] 00 :00 (four) Medical times Branch daily [...] Q6HPRN, Medical 0.5 mg Starting Branch on 08/06/21 at 1445, Until Sat08/07/21 at 1223, Routine, Pain (scale 7-10), breakthrou gh pain
Us e approved by (Faculty): ADC PROVIDER oxyCODONE-a Yes 2{tbl} 2 tablet, Univers cetaminophe 08-06 Oral, ity of n 20:39: Q6HPRN, [place] (PERCOCET) 03 Starting Medic al 5-325 mg [...] PROVIDER ertapenem 2021- No 1000mg 1,000 mg, Univers (INVANZ) 08-05 IV ity of 1,000 mg in 15:45: 18:30 Piggyback, [place] NaCl 0.9% 00 :00 Q24H ABX, Medic al (NS) 50 mL First dose Bra [facility] MINI-BAG on 08/05/21 at 0945, Until Discontinu ed, Administer over 30 Minutes, 50 mL
Reas on for Anti-Infec tive: Empiric Therapy for Suspected Infection< br>Empiric Therapy Site: Urine
D uration of therapy: 72 hours
R estricted use approved by: ADC PROVIDER lactobacill Yes .5mg 0.5 mg, Uni vers us 08-05 Oral, BID, ity of acidophilus 02:00: First dose [place] tablet 0.5 00 on Fri Medical mg 08/04/21 at Branch 2000, Until Discontinu ed, Routine vancomycin 2021- No 250mg 250 mg, Un ela (VANCOCIN) 08-05 Oral, QID, it y of capsule 250 02:00: 16:20 First dose [place] mg 00 :40 (after Medical last Branch reorder) on 08/04/21 at 2000, Until Discontinu ed, SAHARA
crew team member approving Non-formul shanelle medication : MEGADC
Reason for non-formul shanelle use: SPECIFIC INDICATION FOR NONFORMULA RY PRODUCT
Reason for Anti-Infec tive: Documented Infection< br>Documen lester Infection Site: Abdominal< br>Duratio n of Therapy: 14 days vancomycin 2021- No 250mg 250 mg, Un [...] br>Duratio n of Therapy: 14 days lidocaine 0 2021- No 5mL 5 mL, Univer s 1% (PF) 08-04 Subcutaneo ity o f (XYLOCAINE) 23:45: 02:25 us, ONCE, [place] injection 5 00 :00 1 dose, On Me dical mL Sat Branch 08/04/21 at 1745, Routine NaCl 0.9% Yes 10mL 10 mL, Univer s (NS) 08-04 Slow IV ity of injection 23:38: [place], [place]N, [place] 10 mL 41 Starting Medical on Sat Branch 08/04/21 at 1738, Until Discontinu ed, Routine, line maintenanc e meropenem 2021- No 1g 1 g, IV Univ ers (MERREM) 08-03 Piggyback, it y of g in NaCl 23:15: 14:33 Q8H ABX, Tim as 0.9% (NS) 00 :35 First dose Medi efrain 100 mL (after Branch MINI-BAG last modificati on) on Libra 08/03/21 at 1715, Until Discontinu ed, Administer [...] meropenem 2021- No 1g 1 g, IV Univ ers (MERREM) 08-03 Piggyback, it y of [...] uration of Therapy: Other (see Comments) HYDROmorpho 0 2022- No .5mg 0.5 mg, Un ela ne 08-03 Slow IV ity of (DILAUDID) 14:29: 20:41 Push, [place] injection 58 :17 Q4HPRN, Medical 0.5 mg Starting Branch on Libra 08/03/21 at 0829, Until 08/06/21 at 1441, Routine, Pain (scale 7-10)
U se approved by (Faculty): ADC PROVIDER proMETHazin Yes 25mg 25 mg, Univ ers e 1- Oral, ity of (PHENERGAN) 09:42: Q4HPRN, Tim as tablet 25 07 Starting Medica l mg on Libra Branch 08/03/21 at 0342, Until Discontinu ed, Routine, Nausea and Vomiting (N/V) HYDROmorpho 0 202- No .5mg 0.5 mg, Un ela ne 08-03 Slow IV ity of (DILAUDID) 09:41: 12:04 Push, [place] injection 36 :38 Q4HPRN, Medical 0.5 mg Starting Branch on Libra 08/03/21 at 0341, Until Libra 08/03/21 at 0604, Routine, Pain (scale 7-10)
U se approved by (Faculty): ADC PROVIDER proCHLORper Yes 10mg 10 mg, Univ ers azine 1-20 Slow IV ity of (COMPAZINE) 09:07: Push, [place] injection 27 Q6HPRN, Medical 10 mg Starting Branch on Libra 08/03/21 at 0307, Until Discontinu ed, Routine, Nausea and Vomiting (N/V) acetaminoph 0 Yes 650mg 650 mg, Un ela en 1-20 Oral, ity of (TYLENOL) 09:07: Q6HPRN, [place] tablet 650 10 Starting Medic al mg on Libra Branch 08/03/21 at 0307, Until Discontinu ed, Routine, Pain (scale 1-3) meropenem 2021- No 1g 1 g, IV Univ ers (MERREM) 1 08-03 Piggyback, it y of g in NaCl 07:15: 08:49 ONCE, 1 [place] 0.9% (NS) 00 :00 dose, On Medica l 100 mL [facility] Branch MINI-BAG 08/03/21 at 0115, Administer over 60 Minutes, 100 mL
Rest ricted use approved by: ADC PROVIDER<b r>Reason for Anti-Infec tive: Documented Infection< br>Documen lester Infection Site: Urine
D uration of Therapy: Other (see Comments) cefdinir 2021- No 300mg 300 mg, Univ ers (OMNICEF) 08-01 Oral, ity of capsule 300 03:30: 02:55 ONCE, 1 [place] mg 00 :00 dose, On Medical [facility] 07/31/21 at 2130, SAHARA
Re ason [...] 00 :00 dose, On Medical NaCl 0.9% [facility] (NS) 50 mL 07/31/21 at piggyback 1915, 50 mL cefdinir 2021- Yes [id number] 300mg Take 1 U nivers 300 mg 07-31 capsule by ity of capsule 00:00: 05:59 mouth [place] 00 :00 every 12 Medical (twelve) Branch hours for 10 days. cefdinir 2021- No [id number] 300mg Take 1 U nivers 300 mg [...] 07-29 IV ity of (PHENERGAN) 22:46: 23:00 Piggyback, [place] 12.5 mg in 00 :00 ONCE, 1 Medica l NaCl 0.9% dose, On Branch (NS) 50 mL Sat piggyback 07/29/21 at 1700, 50 mL FENTanyl PF 2021- No 50ug 50 mcg, Un ela (SUBLIMAZE 07-29 Slow IV ity o f (PF)) 22:45: 23:00 Push, [place] injection 00 :00 ONCE, 1 Medical 50 mcg dose, On Branch 07/29/21 at 1645, Routine methocarbam 2021-0 Yes [id number] 1000mg Take 2 Univers oL 500 mg 1-15 tablets by ity of tablet 00:00: mouth 4 [place] 00 (four) Medical times Branch daily as needed for Pain (scale 1-3). methocarbam 2021-0 Yes [id number] 1000mg Take 2 Univers oL 500 mg 1-15 tablets by ity of tablet 00:00: mouth 4 [place] 00 (four) Medical times Branch daily as needed for Pain (scale 1-3). methocarbam 0 Yes [id number] 1000mg Take 2 Univers oL 500 mg 1-15 tablets by ity of tablet 00:00: mouth 4 (four) Medical times Branch daily as needed for Pain (scale 1-3). methocarbam 0 Yes [id number] 1000mg Take 2 Univers oL 500 mg 1-15 tablets by ity of tablet 00:00: mouth 4 00 (four) Medical times Branch daily as needed for Pain (scale 1-3). methocarbam 0 Yes [id number] 1000mg Take 2 Univers oL 500 mg 1-15 tablets by ity of tablet 00:00: mouth 4 (four) Medical times Branch daily as needed for Pain (scale 1-3). proMETHazin 2020-07 No 25mg 25 mg, IV Univers e -24 06-07 Piggyback, ity of (PHENERGAN) 23:15: 22:20 ONCE, [...] 06/07/21 at 1615, Routine fidaxomicin 2020-07 Yes [id number] 200mg Take 1 Univers 200 mg 1-24 tablet by ity of tablet 00:00: mouth 2 (two) Medical times Branch daily. proMETHazin 2020-07 Yes [id number] 25mg Take 1 Univers e 25 mg 1-24 tablet by ity of tablet 00:00: mouth 00 every 6 Medical (six) Branch hours as needed for Nausea and Vomiting (N/V). fidaxomicin 2020-07 Yes [id number] 200mg Take 1 Univers 200 mg 1-24 tablet by ity of tablet 00:00: mouth 2 00 (two) Medical times Branch daily. proMETHazin 2020-07 Yes [id number] 25mg Take 1 Univers e 25 mg 1-24 tablet by ity of tablet 00:00: mouth [place] 00 every 6 Medical (six) Branch hours as needed for Nausea and Vomiting (N/V). cholestyram 2020-07 Yes Univer s ine 4 gram 1-24 ity of packet 00:00: [place] Medical Branch fidaxomicin 2020-07 Yes [id number] 200mg Take 1 Univers 200 mg 1-24 tablet by ity of tablet 00:00: mouth 2 [place] 00 (two) Medical times Branch daily. proMETHazin 2020-07 Yes [id number] 25mg Take 1 Univers e 25 mg 1-24 tablet by ity of tablet 00:00: mouth [place] 00 every 6 Medical (six) Branch hours as needed for Nausea and Vomiting (N/V). cholestyram 2020-07 Yes Univer s ine 4 gram 1-24 ity of packet 00:00: [place] Medical Branch cholestyram 2020-07 Yes Univer s ine 4 gram 1-24 ity of packet 00:00: [place] Medical Branch cholestyram 2020-07 Yes Univer s ine 4 gram 1-24 ity of packet 00:00: [place] [facility] cholestyram 2020-07 Yes Univer s ine 4 gram 1-24 ity of packet 00:00: [place] [facility] Branch fidaxomicin 2020-07 Yes [id number] 200mg Take 1 Univers 200 mg 1-24 tablet by ity of tablet 00:00: mouth 2 [place] (two) Medical times Branch daily. proMETHazin 2020-07 Yes [id number] 25mg Take 1 Univers e 25 mg 1-24 tablet by ity of tablet 00:00: mouth [place] 00 every 6 Medical (six) Branch hours as needed for Nausea and Vomiting (N/V). fidaxomicin 2020-07- No [id number] 200mg Take 1 Univers 200 mg 1-24 01-25 tablet by ity of tablet 00:00: 00:00 mouth 2 [place] 00 :00 (two) Medical times Branch daily. proMETHazin 2020-07- No [id number] 25mg Take 1 Univers e 25 mg [...] of 1,000 mg in 02:30: 01:55 Piggyback, [place] NaCl 0.9% 00 :00 ONCE, 1 Medical (NS) 50 mL dose, [facility] ch MINI-BAG 11/20/20 at 2130, 50 mL
Reas on for Anti-Infec tive: Documented Infection< br>Documen lester Infection Site: Urine
D uration of Therapy: 7 days famotidine 2020- No 20mg 20 mg, Univ ers (PEPCID 5-10 05-10 Slow IV ity of (PF)) 01:00: 00:12 Push, [place] injection 00 :00 ONCE, 1 Medical 20 mg dose, [facility] 11/20/20 at 2000, SAHARA proMETHazin 2020- No 25mg 25 mg, IV Univers e 5-10 05-10 Piggyback, ity of (PHENERGAN) 00:45: 00:11 [place]CE[place] 1 [place] 25 mg in 00 :00 dose, [place] Medica l NaCl 0.9% 11/20/20 at [place] [...] 1,000 mL 00 :00 IV Medical Infusion, [place] ONCE, 1 dose, Street 11/20/20 at 1900, SAHARA cefdinir 2020- No [id number] 300mg Take 1 U nivers 300 mg [...] Volume: 1,000, Start date: 05/22/18 5:04:00 SUPERVISOR CARTOGRAPHY, Duration: 30 day, Stop date: 06/21/18 5:03:00 SUPERVISOR CARTOGRAPHY, 2.4, m2 Magnesium 2017-07 No Notes: Memori a Sulfate 07-22 WASTE: F/P l 10:36: - Sink; E [place] - [facility] Trash Bin Isolyte S 2017-07 No Notes: Memori a PH-7.4 07-22 (Same as: l (Bolus) IV 10:36: Isolyte S He rmann PH 7.4) Phenergan 2017-07 No 12.5 mg, Erwin benjamin 08 0.5 mL, l 10:35: Route: [place] 00 IVPB, Drug form: INJ, ONCE, Dosing Weight 131.818, kg, Priority: STAT, Start date: 05/22/18 4:35:00 SUPERVISOR CARTOGRAPHY, Stop date: 05/22/18 4:35:00 SUPERVISOR CARTOGRAPHY Citalopram Citalopram Yes Na Gamble [address] [facility] Hydrobromid Hydrobromid 7-16 [facility] - e e 00:00: [facility] 00 l [facility] Seroquel Seroquel Yes Na Gamble [address] [facility] 7-16 [facility] Docusate Yes 100 mg = 1 Mem oria Sodium 100 5-08 cap, PO, l MG Oral 14:56: BID, 0 Jason Capsule 00 Refill(s) Zosyn Yes 0 Memoria 5-08 Refill(s) l 14:56: Gibbs 00 celecoxib Yes 200 mg = 1 [...] n 5-08 Daily, 0 l 14:56: Refill(s) Gibbs methocarbam Yes 1,000 mg = Memoria ol 500 mg 5-08 2 tab, PO, l oral tablet 14:56: Q8H, 0 Herm carly 00 Refill(s) LORazepam Yes 0.5 mg = 1 Me moria 0.5 mg oral 5-08 tab, PO, l tablet 14:56: Q8H, PRN Gibbs 00 Anxiety, 0 Refill(s) Lidocaine Yes 3 patch, Erwin benjamin Hydrochlori 5-08 TOP, l de 0.05 14:56: Daily, Gibbs MG/MG 00 Remove Transdermal after 12 Patch [...] Notes: Memoria 5-05 NSAID. l 22:00: Please Gibbs 00 check indication . Not for seizure. [...] 5-04 not give l 22:40: IV push. Gibbs 00 (Same as: Phenergan) Dilaudid No Notes: Memoria 5-04 Same as l 22:40: Dilaudid Gibbs 00 Tramadol No Notes: Not Mem oria 5-04 to exceed l 22:00: 400mg/day. Jason 00 (Same As: Ultram) gabapentin No Notes: Memor ia 5-04 (Same as: l 22:00: Neurontin) Gibbs 00 Acetaminoph No Notes: Max Memoria en [...] ia 5-04 (Same as: l 07:00: Lovenox) Gibbs 00 Sodium No 1,000 mL, Memori a [...] / 5- (Same as: l Hydrocodone 06:46: [place] Kristen nn Bitartrate 00 325/5) Do 5 MG Oral not exceed Tablet 4gm/day of acetaminop hen. Reglan No Notes: Memoria 5-04 (Same as: l 04:27: Reglan) Gibbs 00 Benadryl No Notes: Memoria 5-04 (Same as: l 04:27: Benadryl) Gibbs Magnesium No Notes: Memori a Sulfate 11-15 WASTE: F/P l 04:26: - Sink; E Gibbs - Municipal Trash Bin Sodium No 1,000 mL, Memori a Chloride 5-04 1000 l 0.9% 04:26: ml/hr, Jason (Bolus) IV 00 Infuse Over: 1 hr, Route: IV, 1,000, Drug form: INJ, ONCE, Priority: STAT, Dosing Weight 127.273 kg, Start date: 11/14/17 23:26:00 CDT, Stop date: 11/14/17 23:26:00 CDT Zosyn No 4.5 gm, Memoria 11-15 Route: l 04:10: IVPB, Gibbs 00 ONCE, Dosing Weight 127.273, kg, Priority: [...] en 11-15 acetaminop l 02:56: hen 4000 Gibbs 00 mg/day (4 gm/day). (Same as: Tylenol [...] Memoria 11-14 (Same as: l 23:14: Benadryl) Jason Benadryl No Notes: Memoria 5-03 (Same as: l 22:56: Benadryl) Morphine 2018-0 No 4 mg, 1 Memori a 5-03 mL, Route: l 22:56: IVP, Drug form: SOLN, ONCE, Dosing Weight 127.273, kg, Priority: STAT, Start date: 11/14/17 17:56:00 CDT, Stop date: 11/14/17 17:56:00 CDT OXYCODONE 2016-07 Yes Take by Univ ers HCL/ACETAMI 2-20 mouth. ity of [place] 10:03: [place] (PERCOCET 17 Medical ORAL) [place] OXYCODONE 2016-07 Yes Take by Univ ers HCL/ACETAMI 2-20 mouth. ity of NOPHEN 04:03: [place] (PERCOCET 17 Medical ORAL) [place] OXYCODONE 2016-07 Yes Take by Univ ers HCL/ACETAMI 2-20 mouth. ity of NOPHEN 04:03: [place] (PERCOCET 17 Medical ORAL) Branch OXYCODONE 2016-07 Yes Take by Univ ers HCL/ACETAMI 2-20 mouth. ity of NOPHEN 04:03: [place] (PERCOCET 17 Medical ORAL) [place] OXYCODONE 2016-07 Yes Take by Univ ers HCL/ACETAMI 2-20 mouth. ity of NOPHEN 04:03: [place] (PERCOCET 17 Medical ORAL) [place] dicyclomine 2016-07 Yes 20mg Take 1 Univ [...] Codeine #4 Codeine #4 Mem oria l [facility]ics Macrobid Macrobid Yes Na Gamble [address] [facility] with food [facility] Pantoprazol Pantoprazol Yes Na Gamble [address] [facility] e Sodium e Sodium [facility] Collagenase Collagenase Yes Na Gamble [address] [facility] applicatio [facility] - n to Memoria affected l area [facility] ent Clinics Vital Signs Vital Name Observation Time Observation Value Comments Source Systolic blood 2021-09-29 03:18:00 113 mm[facility]Hg[facility] 2021-09-29 03:18:00 85 mm[Hg] [facility] Heart rate 2021-09-29 03:18:00 96 /min [facility] Respiratory rate 2021-09-29 03:18:00 18 /min [facility] Oxygen saturation in 2021-09-29 03:18:00 93 /min [facility] Arterial blood by [place] [facility] Pulse oximetry Branch Body temperature 2021-09-29 01:01:16 36.89 Abi [facility] Body weight 2021-09-28 23:13:00 127.461 kg [facility] BMI 2021-09-28 23:13:00 56.76 kg/m2 [facility] Systolic blood 2021-08-08 21:53:00 142 mm[Hg] Univer sity [facility] Diastolic blood 2021-08-08 21:53:00 88 mm[Hg] Unive rsity [facility] Heart rate 2021-08-08 21:53:00 96 /min [facility] Body temperature 2021-08-08 21:53:00 36.06 Abi [facility] Respiratory rate 2021-08-08 21:53:00 18 /min [facility] Oxygen saturation in 2021-08-08 21:53:00 96 /min [facility] Arterial blood by [place] [employer] efrain Pulse oximetry Branch Body weight 2021-08-08 09:48:00 138.801 kg [facility] BMI 2021-08-08 09:48:00 61.80 kg/m2 [facility] Body height 2021-08-03 10:27:00 149.9 cm [facility] Systolic blood 2021-08-01 03:50:00 142 mm[Hg] [facility] Diastolic blood 2021-08-01 03:50:00 95 mm[Hg] [facility]ive rsity [facility] Heart rate 2021-08-01 03:50:00 93 /min [facility] Respiratory rate 2021-08-01 03:50:00 17 /min [facility] Oxygen saturation in 2021-08-01 03:50:00 98 /min [facility]terial blood by [place] [facility] Pulse oximetry Branch Body temperature 2021-07-31 20:39:00 36.5 Abi [facility] Body weight 2021-07-31 20:39:00 136.079 kg [facility] BMI 2021-07-31 20:39:00 60.59 kg/m2 [facility] Systolic blood 2021-07-30 01:46:00 134 mm[Hg] [facility] Diastolic blood 2021-07-30 01:46:00 100 mm[Hg] [facility] Heart rate 2021-07-30 01:46:00 102 /min [facility] Respiratory rate 2021-07-30 01:46:00 22 /min [facility] Oxygen saturation in 2021-07-30 01:46:00 96 /min [facility] Arterial blood by [place] [employer] efrain Pulse oximetry Branch Body temperature 2021-07-29 20:52:00 36.67 Abi [facility] Body weight 2021-07-29 20:52:00 136.079 kg [facility] BMI 2021-07-29 20:52:00 60.59 kg/m2 [facility] Systolic blood 2021-06-07 23:30:00 175 mm[Hg] [facility] Diastolic blood 2021-06-07 23:30:00 107 mm[Hg] Unive rsity [facility] Heart rate 2021-06-07 23:30:00 81 /min [facility] Respiratory rate 2021-06-07 23:30:00 21 /min [facility] Oxygen saturation in 2021-06-07 23:30:00 97 /min [facility] Arterial blood by [place] [employer] efrain Pulse oximetry Branch Body weight 2021-06-07 21:55:00 136.079 kg [facility] BMI 2021-06-07 21:55:00 60.59 kg/m2 [facility] Body temperature 2021-06-07 21:55:00 37.44 Abi [facility] Systolic blood 2020-11-21 01:30:00 163 mm[Hg] [facility] Diastolic blood 2020-11-21 01:30:00 106 mm[Hg] Unive [facility] Heart rate 2020-11-21 01:30:00 97 /min [facility] Respiratory rate 2020-11-21 01:30:00 21 /min [facility] Oxygen saturation in 2020-11-21 01:30:00 97 /min [facility] of Arterial blood by [facility] Pulse oximetry Branch Body temperature 2020-11-20 23:27:00 36.83 Abi [facility] Body height 2020-11-20 23:27:00 149.9 cm [facility] Body weight 2020-11-20 23:27:00 136.079 kg [facility] BMI 2020-11-20 23:27:00 60.59 kg/m2 [facility] Systolic blood 2020-11-21 01:30:00 163 mm[Hg] [facility] Diastolic blood 2020-11-21 01:30:00 106 mm[Hg] [facility] [place] [facility] [place] Heart rate 2020-11-21 01:30:00 97 /min [facility] Respiratory rate 2020-11-21 01:30:00 21 /min [facility] Oxygen saturation in 2020-11-21 01:30:00 97 /min [facility] Arterial blood by [facility] Pulse oximetry Branch Body temperature 2020-11-20 23:27:00 36.83 Abi [facility] Body height 2020-11-20 23:27:00 149.9 cm [facility] Body weight 2020-11-20 23:27:00 136.079 kg [facility] BMI 2020-11-20 23:27:00 60.59 kg/m2 [facility] Respitory Rate 2018-05-22 17:30:00 Memori al Gibbs Systolic (mm Hg) 2018-05-22 17:30:00 Erwin romel Jason Diastolic (mm Hg) 2018-05-22 17:30:00 Mem orial Jason Temperature Oral (F) 2018-05-22 17:30:00 98.4 F [facility] Jason Temperature Oral (F) 2018-05-22 16:23:00 98.6 F [facility] Gibbs Systolic (mm Hg) 2018-05-22 16:23:00 Erwin rial Gibbs Diastolic (mm Hg) 2018-05-22 16:23:00 Mem orial Gibbs Respitory Rate 2018-05-22 14:00:00 Memori al Jason Systolic (mm Hg) 2018-05-22 14:00:00 Erwin rial Gibbs Diastolic (mm Hg) 2018-05-22 14:00:00 Mem orial Gibbs Respitory Rate 2018-05-22 13:30:00 Memori al Gibbs BMI Calculated 2018-05-22 10:16:00 Memori al Gibbs Height 2018-05-22 10:16:00 149.86 cm Memorial Jason Weight 2018-05-22 10:16:00 [facility] Gibbs Heart Rate 2018-05-22 10:16:00 [facility] Gibbs Temperature Oral (F) 2018-05-22 10:16:00 97.9 F [facility] Jason Temperature Oral (F) 2017-11-19 13:40:00 97.2 F [facility] Gibbs Systolic (mm Hg) 2017-11-19 13:40:00 Erwin rial Jason Diastolic (mm Hg) 2017-11-19 13:40:00 Mem orial Jason Heart Rate 2017-11-19 13:40:00 [facility] Jason Respitory Rate 2017-11-19 13:40:00 Memori al Gibbs Heart Rate 2017-11-19 05:24:00 [facility] Gibbs Systolic (mm Hg) 2017-11-19 05:24:00 Erwin rial Jason Diastolic (mm Hg) 2017-11-19 05:24:00 Mem orial Jason Respitory Rate 2017-11-19 05:24:00 Memori al Jason Temperature Oral (F) 2017-11-19 05:24:00 98.1 F [facility] Gibbs Respitory Rate 2017-11-19 01:15:00 Memori al Jason Systolic (mm Hg) 2017-11-19 01:15:00 Erwin rial Jason Diastolic (mm Hg) 2017-11-19 01:15:00 Mem orial Jason Heart Rate 2017-11-19 01:15:00 [facility] Gibbs Temperature Oral (F) 2017-11-19 01:15:00 98.1 F [facility] Jason Weight 2017-11-18 14:00:00 [facility] Jason Weight 2017-11-17 14:[facility] 2017-11[facility]15 14[facility]00[facility]00 [facility] BMI Calculated 2017-11-15 05:43:00 Gerri seo Gibbs Height 2017-11-15 05:43:00 162.56 cm [facility] Height 2017-11-14 22:41:00 149.86 cm [facility] BMI Calculated 2017-11-14 22:41:00 Gerri seo Gibbs Procedures Procedure Date / Time Performing Clinician Source Performed CT HEAD WO CONTRAST 2021-09-29 00:15:29 Roger Yanez [facility] URINALYSIS 2021-09-28 23:53:00 Roger Yane[facility] COMP. METABOLIC PANEL 2021-09-28 23:52:00 Roger Yanez [facility] ([id number]) [facility] CBC WITH DIFF 2021-09-28 23:52:00 Roger Yanez [facility] XR CHEST 1 VW 2021-08-07 03:03:32 [facility] COMP. METABOLIC PANEL 2021-08-06 11:57:00 [facility] ([id number]) [facility] CBC WITH DIFF 2021-08-06 11:57:00 [facility] BASIC METABOLIC PANEL (NA, 2021-08-04 12:10:00 May Brambila [facility] K, CL, CO2, GLUCOSE, BUN, Medica l Branch CREATININE, CA) CBC WITH DIFF 2021-08-04 12:09:00 [facility] 2021-08-04 00:40:00 [facility] URINE CULTURE 2021-08-04 00:40:00 [facility] FECES CULTURE 2021-08-03 14:58:00 [facility] OCCULT (GUAIAC) BLOOD 2021-08-03 14:58[facility] 2021-08-03 14:58:00 May Brambila [facility] TOXIN [facility] FECAL PATHOGENS BY PCR 2021-08-03 14:58:[address] [facility] URINE DRUG (IMMUNOASSAY) - 2021-08-03 10:11:00 May Brambila [facility] COMPREHENSIVE DRUG SCREEN Medica l Branch COVID-19 (ID NOW RAPID 2021-08-03 07:33:00 Lamine Serna [facility] TESTING) Medical Branch LAB ONLY COVID 2021-08-03 07:33:00 Lamine Serna [facility] INTERPRETATION [facility] COMP. METABOLIC PANEL 2021-08-03 06:18:00 Lamine Serna [facility] ([id number]) [facility] CBC WITH DIFF 2021-08-03 05:40:[address] [facility] URINALYSIS 2021-08-01 01:43:[address] [facility] LIPASE 2021-08-01 01:40:[address] [facility] COMP. METABOLIC PANEL 2021-08-01 01:40:00 Stephanie Balderrama [facility] ([id number]) [facility] CBC WITH DIFF 2021-08-01 01:38:[address] [facility] XR CHEST 1 VW 2021-07-31 23:40:[address] [facility] ASSIGNMENT OF BENEFITS 2021-07-31 22:05:40 Doctor Unassigned, [facility] NOTICE OF PRIVACY 2021-07-31 22:04:58 Doctor Beto, [facility]ACTICES [facility] CONS[facility]/REFUSAL FOR 2021-07-31 22:04:33 Doctor Beto, [facility] DIAGNOSIS AND TREATMENT [facility] URINALYSIS 2021-07-29 23:09:[address] [facility] BLOOD CULTURE SCREEN 2021-07-29 23:04:00 Lynette Fonseca [facility] D-DIMER 2021-07-29 22:49:[address] [facility] COVID-19 (ID NOW RAPID 2021-07-29 22:48:00 Lynette Fonseca [facility] TESTING) Medical Branch COMP. METABOLIC PANEL 2021-07-29 22:17:00 Lynette Fonseca [facility] ([id number]) Medical Branch CBC WITH DIFF 2021-07-29 22:17:[address] [facility] XR CHEST 1 VW 2021-07-29 21:47:[address] [facility] COMP. METABOLIC PANEL 2021-06-07 22:20:00 [place] [facility] ([id number]) Medical Branch CBC WITH DIFF 2021-06-07 22:20:00 Singer [place] o [facility] CT ABDOMEN PELVIS WO 2020-11-21 00:39:40 Brittany Saunders [facility] CONTRAST Medical Branch LIPASE 2020-11-21 00:06:00 IbSony guzmano F [facility] COMP. 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 Plan of Care Planned Activity Planned Date Details Comments Source Future Scheduled 2022-07-[address] [facility] 00:[facility]00 (procedure) [code = Medical Center 44891943] Future Scheduled 2021-03-[address] [facility] Test 00:00:00 (Season Ended) [code = [facility] Center INFLUENZA VACCINE (Season Ended)] Future Scheduled 2020-07-[address] [facility] - Test 00:00:00 (12+) [code = Medical Center DEPRESSION SCREENING (12+)] Future Scheduled 2019-10-[address] [facility] - Test 00:00:00 measurement Medical Center (procedure) [code = 54363846] Future Scheduled 2004 DTAP/TDAP/TD VACCINES [facility] [...] [facility] Test 00:00:00 protein (procedure) [facility] [code = 814992702] Future Scheduled [address] [facility] - Test 00:00:00 0-64 YRS (1 of 1 - Medical C enter PPSV23) [code = PNEUMOCOCCAL VACCINE 0-64 YRS (1 of 1 - PPSV23)] Encounters Start End Encounter Admission Attending Care Care Encounter Source Date/Time Date/Time Type Type Clinicians Facility Department ID 2021-08-09 [facility] [id number] 13:45:16 Eren [id number] [facility] 2021-08-09 [facility] [id number] [facility] 13:17:39 Eren [id number] [facility] 2021-08-09 Out[facility] [id number] 13:16:34 Eren [id number] [facility] 2021-09-28 2021-09-28 Emergency X Roger YANEZ [facility] ERT [id number] Univers 18:08:00 22:51[facility] 2021-09-28 2021-09-28 Emergency Tawanda, Roger [facility] [id number] Univers 18:08:00 22:51:00 Cici DURAN [id number] i ty of [facility] [id number] [facility] [id number] [facility] 084 Branch 2021-08-09 2021-08-09 Transition PHILLY ZepedaAnish [id number] Univers 00:00:00 00:00:00 of Care Kamila GILLESPIE [id number] ity of [place] [id number] [facility] [id number] [facility] 403 Branch 2021-08-02 2021-08-08 Inpatient [facility] [id number] Univers 19:07:00 19:39:00 LAMINE [facility] 2021-08-02 2021-08-08 [facility] [id number] Univers 19:07:00 19:39:00 Encounter May Brambila RENEE [id number] ity of [place] [id number] [facility] [id number] [address] 2021-07-31 2021-07-31 Emergency [facility] [id number] Univers 14:41:00 22:07:00 STEPHANIE saba [facility] 2021-07-31 2021-07-31 Emergency [facility] [id number] Univers 14:41:00 22:07:00 Stephanie DURAN [id number] ity of [place] [id number] [facility] [id number] [address] 2021-07-29 2021-07-29 Emergency [facility] [id number] Univers 14:49:00 21:33:00 LYNETTE saba [facility] 2021-07-29 2021-07-29 Emergency [facility] [id number] Univers 14:49:00 21:33:00 Lynette DURAN [id number] ity of [place] [id number] [facility] [id number] [address] 2021-07-11 2021-07-11 Laboratory Only, Ang Db Test [facility] [id number] Univers 18:00:00 18:15:00 Only ToñoSierra [facility] [id number] ity of [place] [id number] Tim as VICENTA?BLEA [id number] [address] MEDICAL OFFICE BUILDING 2021-07-11 2021-07-11 Outpatient R TOÑO [facility] [id number] Univers 18:00:00 18:00:00 SIERRA [facility] 2021-07-05 2021-07-05 ambulatory STLMLC [facility] [id number] [facility] 2021-07-04 2021-07-04 ambulatory STLMLC [facility] [id number] [facility] 2021-06-07 2021-06-07 Emergency X , [facility] ERT [id number] Univers 15:54:00 18:34:00 SIDNEY lizet [facility] 2021-06-07 2021-06-07 Emergency [facility] [id number] Univers 15:54:00 18:34:00 Sidney DURAN [id number] i ty of [facility] [id number] [facility] [id number] [address] 2021-04-25 2021-04-25 Outpatient STLMLC [facility] [id number] [facility] 2021-04-11 2021-04-11 Outpatient STLMLC [facility] [id number] [facility] 2021-02-21 2021-02-21 Outpatient STLMLC [facility] [id number] [facility] 2021-01-31 2021-01-31 Outpatient [facility] [id number] [facility] 2021-01-03 2021-01-03 [id number] 2020-11-20 2020-11-20 Emergency [facility] [id number] 18:22:00 22:21:00 Brittany Trujillo [place] [id number] [place] [id number] [place] [id number] [facility] 2020-11-20 2020-11-20 Emergency [facility] [id number] [facility] 18:22:00 22:21:00 Brittany Duran [id number] [facility] [id number] [facility] [id number] [address] 2020-11-20 2020-11-20 Emergency X [facility] ERT [id number] Univers 18:22:00 18:22:00 [facility] 2019-03-02 2019-03-04 Phone nullFlavo MNA [id number] Memoria 16:11:26 04:59:59 Message r Neurosurger 08 l y [facility] 2019-02-10 2019-02-12 Phone nullFlavo MNA [id number] Memoria 16:16:47 04:59:59 Message r Neurosurger 07 l y [facility] 2019-01-26 2019-01-28 Phone nullFlavo MNA [id number] Memoria 15:52:03 04:59:59 Message r Neurosurger 06 l y [facility] 2019-01-01 2019-01-03 Phone nullFlavo MNA [id number] Memoria 18:55:03 04:59:59 Message r Neurosurger 05 l y [facility] 2018-05-22 2018-05-22 Emergency [facility] [id number] 10:12[facility] 18:24:00 r Gibbs 12 [facility] 2018-02-18 2018-02-18 [facility] [id number] 11:15:00 11:15:00 [place] [employer] [facility] Outpati ent Clinics 2018-01-27 2018-01-27 [facility] [id number] 11:30:00 11:30:00 [place] [facility] s - Drive [facility] Outpati ent Clinics 2018-01-03 2018-01-03 [facility] [id number] 15:41:00 15:41:00 t [place] [employer] [facility] - Drive [facility] Outpati ent Clinics 2017-12-23 2017-12-23 [facility] [id number] 15:42:00 15:42:00 t [place] [employer] [facility] - Drive [facility] Outpati ent Clinics 2017-12-17 2017-12-17 [facility] [id number] 11:00:00 11:00:00 t [place] [employer] [facility] - U[place]ide [facility] Outpati ent Clinics 2017-11-14 2017-11-19 Inpatient [facility] [id number] [facility] 22:40:00 17:28:00 [facility] 23 [facility] Results Test Description Test Time Test Comments Results Result Comments Source CBC WITH DIFF 2021-09-29 00:23:28 Test Item Value Reference Range Interpretation Comme nts WBC (test code = 6690-2) See_Comment H [A utomated message] The system which ge nerated this result transmit lester reference range: 4.20 - 1 0.70 10*3/?L. The reference r boubacar was not used to interpr et this result as normal/abnor mal. RBC (test code = 789-8) See_Comment H [Au tomated message] The system which ge nerated this result transmit lester reference range: 4.26 - 5 .52 10*6/?L. The reference r boubacar was not used to interpr et this result as normal/abnor mal. HGB (test code = 718-7) 18.3 g/dL 12.2-16.4 H HCT (test code = 4544-3) 55.6 % 38.4-49.3 H MCV (test code = 787-2) 89.0 fL 81.7-95.6 MCH (test code = 785-6) 29.3 pg 26.1-32.7 MCHC (test code = 786-4) 32.9 g/dL 31.2-35.0 RDW-SD (test code = 53670-5) 47.6 fL 38.5-51.6 RDW-CV (test code = 788-0) 15.1 % 12.1-15.4 PLT (test code = 777-3) See_Comment H [Au tomated message] The system which ge nerated this result transmit lester reference range: 150 - 32 8 10*3/?L. The reference range was not used to interpret th is result as normal/abnormal . MPV (test code = 16306-2) 10.5 fL 9.8-13.0 NRBC/100 WBC (test code = See_Comment [ Automated message] The 0440473639) system which Weimi nerated this result transmit lester reference range: 0.0 - 10 .0 /100 WBCs. The reference r boubacar was not used to interpr et this result as normal/abnor mal. NRBC x10^3 (test code = <0.01 See_Comment [Au tomated message] The 6481742311) system which Weimi nerated this result transmit lester reference range: 10*3/?L. The reference range was not u sed to interpret this result as normal/abnormal . GRAN MAT (NEUT) % (test code 66.7 % = 770-8) IMM GRAN % (test code = 0.40 % 7218320623) LYMPH % (test code = 736-9) 24.4 % MONO % (test code = 5905-5) 6.6 % EOS % (test code = 713-8) 1.5 % BASO % (test code = 706-2) 0.4 % GRAN MAT x10^3(ANC) (test 7.43 10*3/uL 1.99-6.95 H code = 5822689667) IMM GRAN x10^3 (test code = 0.04 10*3/uL 0.00-0.06 4777953876) LYMPH x10^3 (test code = 2.72 10*3/uL 1.09-3.23 731-0) MONO x10^3 (test code = 0.74 10*3/uL 0.36-1.02 742-7) EOS x10^3 (test code = 0.17 10*3/uL 0.06-0.53 711-2) BASO x10^3 (test code = 0.04 10*3/uL 0.01-0.09 704-7) Lab Interpretation (test Abnormal code = 05047-6) [facility]. METABOLIC PANEL (06884)2021-09-29 00:18:07 Test Item Value Reference Range Interpretation Comments NA (test code = 139 mmol/L 135-145 8243511001) K (test code = 4.8 mmol/L 3.5-5.0 0804436106) CL (test code = 104 mmol/L 98-108 5795917293) CO2 TOTAL (test code = 22 mmol/L 23-31 L 7763919924) AGAP (test code = 2-16 7746229601) BUN (test code = 15 mg/dL 7-23 7042982524) GLUCOSE (test code = 93 mg/dL 70-110 7037803552) CREATININE (test code = 0.67 mg/dL 0.60-1.25 2506541540) TOTAL BILI (test code = 0.7 mg/dL 0.1-1.1 3810198103) CALCIUM (test code = 9.8 mg/dL 8.6-10.6 8807641467) T PROTEIN (test code = 8.9 g/dL 6.3-8.2 H 7528696631) ALBUMIN (test code = 4.9 g/dL 3.5-5.0 5718509923) ALK PHOS (test code = 126 U/L 34-122 H 3183440368) ALTv (test code = 43 U/L 5-50 1742-6) AST(SGOT) (test code = 28 U/L 13-40 8760527717) eGFR (test code = mL/min/1.73m2 1101498058) ARPITA (test code = ARPITA) Association of [...] tests). Lab Interpretation Abnormal (test code = 34338-4) [facility]. METABOLIC PANEL (27072)2021-08-06 12:48:40 Test Item Value Reference Range Interpretation Comments NA (test code = 137 mmol/L 135-145 5428977440) K (test code = 4.5 mmol/L 3.5-5.0 8464110659) CL (test code = 107 mmol/L 98-108 7538045123) CO2 TOTAL (test code = 24 mmol/L 23-31 0730188625) AGAP (test code = 2-16 5409537243) BUN (test code = 16 mg/dL 7-23 3559268150) GLUCOSE (test code = 116 mg/dL 70-110 H 1794679365) CREATININE (test code = 0.62 mg/dL 0.60-1.25 2366434383) TOTAL BILI (test code = 0.4 mg/dL 0.1-1.9 5338757082) CALCIUM (test code = 8.7 mg/dL 8.6-10.6 9116699562) T PROTEIN (test code = 7.5 g/dL 6.3-8.2 3188391190) ALBUMIN (test code = 3.9 g/dL 3.5-5.0 7463293774) ALK PHOS (test code = 93 U/L 34-122 7587621904) ALTv (test code = 40 U/L 5-50 1742-6) AST(SGOT) (test code = 51 U/L 13-40 H 1243204594) eGFR (test code = mL/min/1.73m2 4088673002) ARPITA (test code = ARPITA) Association of [...] tests). Lab Interpretation Abnormal (test code = 52529-3) [facility] WITH [id number] 12:21:36 Test Item Value Reference Range Interpretation [...] RDW-SD (test code = 50.6 fL 38.5-51.6 03949-2) RDW-CV (test code = 15.3 % 12.1-15.4 788-0) PLT (test code = See_Comment H [Automated 777-3) message] The sy stem which generated this result transmitted reference range : 150 - 328 10*3/ ?L. The reference r boubacar was not used to interpret this result as normal/abnormal . MPV (test code = 10.3 fL 9.8-13.0 20147-7) NRBC/100 WBC (test See_Comment [Automat ed code = 5666168416) message] The system which generated this result transmitted reference range : 0.0 - 10.0 /100 WBCs. The refer ence range was not u sed to interpret th is result as normal/abnormal . NRBC x10^3 (test code <0.01 See_Comment [Auto mated = 0842404275) message] The s ystem which generated this result transmitted reference range : 10*3/?L. The reference range was not used to interpret this result as normal/abnormal . GRAN MAT (NEUT) % 61.5 % (test code = 770-8) IMM GRAN % (test code 0.80 % = 5356202427) LYMPH % (test code = 27.8 % 736-9) MONO % (test code = 6.9 % 5905-5) EOS % (test code = 2.4 % 713-8) BASO % (test code = 0.6 % 706-2) GRAN MAT x10^3(ANC) 6.07 10*3/uL 1.99-6.95 (test code = 7124801160) IMM GRAN x10^3 (test 0.08 10*3/uL 0.00-0.06 H code = 1522099541) LYMPH x10^3 (test code 2.75 10*3/uL 1.09-3.23 = 731-0) MONO x10^3 (test code 0.68 10*3/uL 0.36-1.02 = 742-7) EOS x10^3 (test code = 0.24 10*3/uL 0.06-0.53 711-2) BASO x10^3 (test code 0.06 10*3/uL 0.01-0.09 = 704-7) Lab Interpretation Abnormal (test code = 04804-1) [facility] Metabolic Panel (NA, K, CL, CO2, GLUCOSE, BUN, CREATININE, CA)2021-08-04 12:40:30 Test Item Value Reference Range Interpretation Comments NA (test code = 139 mmol/L 135-145 5578357555) K (test code = 3.9 mmol/L 3.5-5.0 8689283202) CL (test code = 108 mmol/L 98-108 7532988135) CO2 TOTAL (test code = 25 mmol/L 23-31 0413081872) AGAP (test code = 2-16 4783939933) BUN (test code = 14 mg/dL 7-23 5998980916) GLUCOSE (test code = 107 mg/dL 70-110 4478174116) CREATININE (test code = 0.61 mg/dL 0.60-1.25 0198166297) CALCIUM (test code = 8.1 mg/dL 8.6-10.6 L 1059300869) eGFR (test code = mL/min/1.73m2 6861151269) ARPITA (test code = ARPITA) Association of [...] tests). Lab Interpretation Abnormal (test code = 56743-2) [facility] with Fawrrkhhwvyl8835-17-56 12:23:51 Test Item Value Reference Range Interpretation Comments WBC (test code = See_Comment [Automated 8986-2) message] The sy stem which generated this result transmitted reference range : 4.20 - 10.70 10*3/?L. The reference range was not used to interpret this result as normal/abnormal . RBC (test code = See_Comment [Automated 264-9) message] The sy stem which generated this [...] RDW-SD (test code = 49.3 fL 38.5-51.6 91581-7) RDW-CV (test code = 15.3 % 12.1-15.4 788-0) PLT (test code = See_Comment H [Automated 777-3) message] The sy stem which generated this result transmitted reference range : 150 - 328 10*3/ ?L. The reference r boubacar was not used to interpret this result as normal/abnormal . MPV (test code = 10.2 fL 9.8-13.0 67033-1) NRBC/100 WBC (test See_Comment [Automat ed code = 2826129692) message] The system which generated this result transmitted reference range : 0.0 - 10.0 /100 WBCs. The refer ence range was not u sed to interpret th is result as normal/abnormal . NRBC x10^3 (test code <0.01 See_Comment [Auto mated = 2141198955) message] The s ystem which generated this result transmitted reference range : 10*3/?L. The reference range was not used to interpret this result as normal/abnormal . GRAN MAT (NEUT) % 56.7 % (test code = 770-8) IMM GRAN % (test code 0.60 % = 1877692790) LYMPH % (test code = 31.1 % 736-9) MONO % (test code = 8.7 % 5905-5) EOS % (test code = 2.4 % 713-8) BASO % (test code = 0.5 % 706-2) GRAN MAT x10^3(ANC) 4.83 10*3/uL 1.99-6.95 (test code = 6488948770) IMM GRAN x10^3 (test 0.05 10*3/uL 0.00-0.06 code = 5386769411) LYMPH x10^3 (test code 2.64 10*3/uL 1.09-3.23 = 731-0) MONO x10^3 (test code 0.74 10*3/uL 0.36-1.02 = 742-7) EOS x10^3 (test code = 0.20 10*3/uL 0.06-0.53 711-2) BASO x10^3 (test code 0.04 10*3/uL 0.01-0.09 = 704-7) Lab Interpretation Abnormal (test code = 16919-1) [facility]. METABOLIC PANEL (76609)2021-08-03 06:32:14 Test Item Value Reference Range Interpretation Comments NA (test code = 139 mmol/L 135-145 1286310197) K (test code = 4.5 mmol/L 3.5-5.0 7374409292) CL (test code = 102 mmol/L 98-108 6091824142) CO2 TOTAL (test code = 26 mmol/L 23-31 4137273821) AGAP (test code = 2-16 2219035889) BUN (test code = 16 mg/dL 7-23 7672880943) GLUCOSE (test code = 99 mg/dL 70-110 8646410457) CREATININE (test code = 0.83 mg/dL 0.60-1.25 0550040047) TOTAL BILI (test code = 0.6 mg/dL 0.1-1.2 1371030213) CALCIUM (test code = 9.5 mg/dL 8.6-10.6 1975509780) T PROTEIN (test code = 8.6 g/dL 6.3-8.2 H 0061142579) ALBUMIN (test code = 4.6 g/dL 3.5-5.0 8356504938) ALK PHOS (test code = 121 U/L 34-122 0193696128) ALTv (test code = 58 U/L 5-50 H 1742-6) AST(SGOT) (test code = 32 U/L 13-40 6618050578) eGFR (test code = mL/min/1.73m2 4371766561) ARPITA (test code = ARPITA) Association of [...] tests). Lab Interpretation Abnormal (test code = 14649-4) [facility] WITH [id number] 05:48:31 Test Item Value Reference Range Interpretation Comments WBC (test code = See_Comment H [Automated 9737-2) message] The sy stem which generated this result transmitted reference range : 4.20 - 10.70 10*3/?L. The reference range was not used to interpret this result as normal/abnormal . RBC (test code = See_Comment H [Automated 959-8) message] The sy stem which generated this [...] RDW-SD (test code = 49.1 fL 38.5-51.6 77369-8) RDW-CV (test code = 15.5 % 12.1-15.4 H 788-0) PLT (test code = See_Comment H [Automated 777-3) message] The sy stem which generated this result transmitted reference range : 150 - 328 10*3/ ?L. The reference r boubacar was not used to interpret this result as normal/abnormal . MPV (test code = 10.4 fL 9.8-13.0 18258-6) NRBC/100 WBC (test See_Comment [Automat ed code = 7315476947) message] The system which generated this result transmitted reference range : 0.0 - 10.0 /100 WBCs. The refer ence range was not u sed to interpret th is result as normal/abnormal . NRBC x10^3 (test code <0.01 See_Comment [Auto mated = 7605296381) message] The s ystem which generated this result transmitted reference range : 10*3/?L. The reference range was not used to interpret this result as normal/abnormal . GRAN MAT (NEUT) % 64.8 % (test code = 770-8) IMM GRAN % (test code 0.70 % = 2165456071) LYMPH % (test code = 25.2 % 736-9) MONO % (test code = 6.9 % 5905-5) EOS % (test code = 1.9 % 713-8) BASO % (test code = 0.5 % 706-2) GRAN MAT x10^3(ANC) 7.80 10*3/uL 1.99-6.95 H (test code = 5174141863) IMM GRAN x10^3 (test 0.08 10*3/uL 0.00-0.06 H code = 9324563923) LYMPH x10^3 (test code 3.04 10*3/uL 1.09-3.23 = 731-0) MONO x10^3 (test code 0.83 10*3/uL 0.36-1.02 = 742-7) EOS x10^3 (test code = 0.23 10*3/uL 0.06-0.53 711-2) BASO x10^3 (test code 0.06 10*3/uL 0.01-0.09 = 704-7) Lab Interpretation Abnormal (test code = 64170-3) [facility]. METABOLIC PANEL (27335)2021-08-01 02:19:08 Test Item Value Reference Range Interpretation Comments NA (test code = 136 mmol/L 135-145 2737335933) K (test code = 4.4 mmol/L 3.5-5.0 6685144668) CL (test code = 99 mmol/L 98-108 1786246331) CO2 TOTAL (test code = 25 mmol/L 23-31 3204889940) AGAP (test code = 2-16 8398640760) BUN (test code = 19 mg/dL 7-23 9104357363) GLUCOSE (test code = 103 mg/dL 70-110 2251702161) CREATININE (test code = 0.70 mg/dL 0.60-1.25 4196173795) TOTAL BILI (test code = 0.7 mg/dL 0.1-1.2 2759820124) CALCIUM (test code = 9.2 mg/dL 8.6-10.6 1380751093) T PROTEIN (test code = 9.4 g/dL 6.3-8.2 H 3883085901) ALBUMIN (test code = 4.8 g/dL 3.5-5.0 0673205161) ALK PHOS (test code = 146 U/L 34-122 H 9638786189) ALTv (test code = 75 U/L 5-50 H 1742-6) AST(SGOT) (test code = 37 U/L 13-40 7756935294) eGFR (test code = mL/min/1.73m2 5384946914) ARPITA (test code = ARPITA) Association of [...] tests). Lab Interpretation Abnormal (test code = 96922-2) [facility] Test Item Value Reference Range Interpretation Comments LIPASE (test code = 5833809062) 86 U/L 0-220 Lab Interpretation (test code = Normal 98058-4) [facility] [id number] 01:55:49 Test Item Value Reference Range Interpretation Comments WBC (test code = See_Comment H [Automated 7777-2) message] The sy stem which generated this result transmitted reference range : 4.20 - 10.70 10*3/?L. The reference range was not used to interpret this result as normal/abnormal . RBC (test code = See_Comment H [Automated 846-8) message] The sy stem which generated this [...] RDW-SD (test code = 48.7 fL 38.5-51.6 59410-0) RDW-CV (test code = 15.4 % 12.1-15.4 788-0) PLT (test code = See_Comment H [Automated 777-3) message] The sy stem which generated this result transmitted reference range : 150 - 328 10*3/ ?L. The reference r boubacar was not used to interpret this result as normal/abnormal . MPV (test code = 9.9 fL 9.8-13.0 65573-3) NRBC/100 WBC (test See_Comment [Automat ed code = 4165622652) message] The system which generated this result transmitted reference range : 0.0 - 10.0 /100 WBCs. The refer ence range was not u sed to interpret th is result as normal/abnormal . NRBC x10^3 (test code <0.01 See_Comment [Auto mated = 9476038384) message] The s ystem which generated this result transmitted reference range : 10*3/?L. The reference range was not used to interpret this result as normal/abnormal . GRAN MAT (NEUT) % 69.8 % (test code = 770-8) IMM GRAN % (test code 0.50 % = 7058325015) LYMPH % (test code = 20.5 % 736-9) MONO % (test code = 6.8 % 5905-5) EOS % (test code = 1.9 % 713-8) BASO % (test code = 0.5 % 706-2) GRAN MAT x10^3(ANC) 7.72 10*3/uL 1.99-6.95 H (test code = 0860112855) IMM GRAN x10^3 (test 0.05 10*3/uL 0.00-0.06 code = 0780985322) LYMPH x10^3 (test code 2.26 10*3/uL 1.09-3.23 = 731-0) MONO x10^3 (test code 0.75 10*3/uL 0.36-1.02 = 742-7) EOS x10^3 (test code = 0.21 10*3/uL 0.06-0.53 711-2) BASO x10^3 (test code 0.06 10*3/uL 0.01-0.09 = 704-7) Lab Interpretation Abnormal (test code = 98603-6) [facility] 23:33:52 Test Item Value Reference Interpretation Comments Range D-DIMER (test code = See_Comment [Autom ated 3257638285) message] The system which generated this result [...] diagnosis. Lab Interpretation Normal (test code = 64676-4) [facility] (20433)2021-07-29 22:42:48 Test Item Value Reference Range Interpretation Comments NA (test code = 135 mmol/L 135-145 7645708885) K (test code = 4.6 mmol/L 3.5-5.0 5091940998) CL (test code = 102 mmol/L 98-108 7052412811) CO2 TOTAL (test code = 24 mmol/L 23-31 5478290975) AGAP (test code = 2-16 6699263068) BUN (test code = 17 mg/dL 7-23 4268075238) GLUCOSE (test code = 107 mg/dL 70-110 6740385546) CREATININE (test code = 0.60 mg/dL 0.60-1.25 6528087154) TOTAL BILI (test code = 1.0 mg/dL 0.1-1.6 3767628663) CALCIUM (test code = 9.4 mg/dL 8.6-10.6 9615096718) T PROTEIN (test code = 8.6 g/dL 6.3-8.2 H 1158058701) ALBUMIN (test code = 4.6 g/dL 3.5-5.0 3125496125) ALK PHOS (test code = 159 U/L 34-122 H 7940679782) ALTv (test code = 77 U/L 5-50 H 1742-6) AST(SGOT) (test code = 38 U/L 13-40 2431890692) eGFR (test code = mL/min/1.73m2 2950169269) ARPITA (test code = ARPITA) Association of [...] tests). Lab Interpretation Abnormal (test code = 22688-0) [facility] WITH [id number] 22:30:27 Test Item Value Reference Range Interpretation [...] RDW-SD (test code = 48.0 fL 38.5-51.6 78429-2) RDW-CV (test code = 15.1 % 12.1-15.4 788-0) PLT (test code = See_Comment H [Automated 777-3) message] The system which generated this result transmit lester reference range : 150 - 328 10*3/ ?L. The reference range was not u sed to interpret th is result as normal/abnormal . MPV (test code = 10.3 fL 9.8-13.0 99049-4) NRBC/100 WBC (test See_Comment [Automat ed code = 5940682099) message] The system which generated this result transmit lester reference range : 0.0 - 10.0 /100 WBCs. The reference range was not used to interpret this result as normal/abnormal . NRBC x10^3 (test code <0.01 See_Comment [Auto mated = 5990318428) message] The system which generated this result transmit lester reference range : 10*3/?L. The reference range was not used to interpret this result as normal/abnormal . GRAN MAT (NEUT) % 79.9 % (test code = 770-8) IMM GRAN % (test code 0.50 % = 9202818544) LYMPH % (test code = 11.8 % 736-9) MONO % (test code = 6.6 % 5905-5) EOS % (test code = 0.9 % 713-8) BASO % (test code = 0.3 % 706-2) GRAN MAT x10^3(ANC) 10.70 10*3/uL 1.99-6.95 H (test code = 0796437413) IMM GRAN x10^3 (test 0.07 10*3/uL 0.00-0.06 H code = 9206967522) LYMPH x10^3 (test code 1.58 10*3/uL 1.09-3.23 = 731-0) MONO x10^3 (test code 0.89 10*3/uL 0.36-1.02 = 742-7) EOS x10^3 (test code = 0.12 10*3/uL 0.06-0.53 711-2) BASO x10^3 (test code 0.04 10*3/uL 0.01-0.09 = 704-7) Lab Interpretation Abnormal (test code = 85335-8) [facility] (21291)2021-06-07 23:02:15 Test Item Value Reference Range Interpretation Comments NA (test code = 137 mmol/L 135-145 8730088101) K (test code = 4.5 mmol/L 3.5-5.0 4414403519) CL (test code = 109 mmol/L 98-108 H 9868005337) CO2 TOTAL (test code = 22 mmol/L 23-31 L 6814201071) AGAP (test code = 2-16 8801364939) BUN (test code = 7 mg/dL 7-23 9766869533) GLUCOSE (test code = 87 mg/dL 70-110 7554248244) CREATININE (test code = 0.61 mg/dL 0.60-1.25 4522596802) TOTAL BILI (test code = 0.5 mg/dL 0.1-1.1 2282994560) CALCIUM (test code = 9.0 mg/dL 8.6-10.6 1399729523) T PROTEIN (test code = 6.9 g/dL 6.3-8.2 0786700305) ALBUMIN (test code = 3.5 g/dL 3.5-5.0 0776582587) ALK PHOS (test code = 112 U/L 34-122 6692803775) ALTv (test code = 35 U/L 5-50 1742-6) AST(SGOT) (test code = 21 U/L 13-40 7920646125) eGFR (test code = mL/min/1.73m2 9668650193) ARPITA (test code = ARPITA) Association of [...] tests). Lab Interpretation Abnormal (test code = 62194-1) [facility] WITH [id number] 22:51:57 Test Item Value Reference Range Interpretation [...] RDW-SD (test code = 42.4 fL 38.5-51.6 78276-5) RDW-CV (test code = 13.6 % 12.1-15.4 788-0) PLT (test code = See_Comment H [Automated 777-3) message] The sy stem which generated this result transmitted reference range : 150 - 328 10*3/ ?L. The reference r boubacar was not used to interpret this result as normal/abnormal . MPV (test code = 9.4 fL 9.8-13.0 L 99477-3) NRBC/100 WBC (test See_Comment [Automat ed code = 6627870406) message] The system which generated this result transmitted reference range : 0.0 - 10.0 /100 WBCs. The refer ence range was not u sed to interpret th is result as normal/abnormal . NRBC x10^3 (test code <0.01 See_Comment [Auto mated = 2302333097) message] The s ystem which generated this result transmitted reference range : 10*3/?L. The reference range was not used to interpret this result as normal/abnormal . GRAN MAT (NEUT) % 76.4 % (test code = 770-8) IMM GRAN % (test code 0.40 % = 7634864860) LYMPH % (test code = 16.3 % 736-9) MONO % (test code = 5.6 % 5905-5) EOS % (test code = 1.0 % 713-8) BASO % (test code = 0.3 % 706-2) GRAN MAT x10^3(ANC) 8.81 10*3/uL 1.99-6.95 H (test code = 0430336574) IMM GRAN x10^3 (test 0.05 10*3/uL 0.00-0.06 code = 2227459696) LYMPH x10^3 (test code 1.88 10*3/uL 1.09-3.23 = 731-0) MONO x10^3 (test code 0.64 10*3/uL 0.36-1.02 = 742-7) EOS x10^3 (test code = 0.12 10*3/uL 0.06-0.53 711-2) BASO x10^3 (test code 0.03 10*3/uL 0.01-0.09 = 704-7) Lab Interpretation Abnormal (test code = 85397-2) [facility] RAPID TESTING[facility]2020-11-21 01:01:33 Test Item Value Reference Range Interpretation Comments SARS-CoV-2 Rapid ID NOW Not Detected Not Detected (test code = 52953-5) ARPITA (test code = ARPITA) ID NOW COVID-19 Assay is an isothermal nucleic acid amplification test intended for the qualitative detection of nucleic acid from SARS-CoV-2 viral RNA in nasopharyngeal ([employer] OFFICER) specimens. It is used under Emergency Use [...] indicated. Lab Interpretation Normal (test code = 33231-1) [facility]. METABOLIC PANEL (79015)2020-11-21 01:00:33 Test Item Value Reference Range Interpretation Comments NA (test code = 140 mmol/L 135-145 9865182451) K (test code = 4.4 mmol/L 3.5-5.0 4846187792) CL (test code = 103 mmol/L 98-108 3032280560) CO2 TOTAL (test code = 28 mmol/L 23-31 8608912432) AGAP (test code = 2-16 2328428499) BUN (test code = 15 mg/dL 7-23 2381748428) GLUCOSE (test code = 85 mg/dL 70-110 8081702457) CREATININE (test code = 0.60 mg/dL 0.60-1.25 0525047855) TOTAL BILI (test code = 1.1 mg/dL 0.1-1.2 0570679151) CALCIUM (test code = 9.0 mg/dL 8.6-10.6 4272278942) T PROTEIN (test code = 7.8 g/dL 6.3-8.2 3414729236) ALBUMIN (test code = 4.0 g/dL 3.5-5.0 1823233386) ALK PHOS (test code = 166 U/L 34-122 H 9236294709) ALTv (test code = 42 U/L 5-50 1742-6) AST(SGOT) (test code = 32 U/L 13-40 9709568803) eGFR (test code = mL/min/1.73m2 5134082406) ARPITA (test code = ARPITA) Association of [...] tests). Lab Interpretation Abnormal (test code = 69395-4) [facility] Test Item Value Reference Range Interpretation Comments LIPASE (test code = 8122817501) 57 U/L 0-220 Lab Interpretation (test code = Normal 18049-4) [facility] 00:51:55 Test Item Value Reference Range Interpretation Comments APPEARANCE (test code = Turbid Clear A 0750932377) COLOR (test code = Yellow Yellow 4669339409) PH (test code = 4.8-8.0 7622511851) SP GRAVITY (test code = 1.003-1.030 1317610703) GLU U QUAL (test code = Normal Normal 1092105712) BLOOD (test code = 1+ Negative A 3103459023) KETONES (test code = 20 mg/dL Negative A 2959601494) PROTEIN (test code = 100 mg/dL Negative A 2887-8) UROBILIN (test code = 2.0 mg/dL Normal A 6898412126) BILIRUBIN (test code = Negative Negative 3721060873) NITRITE (test code = Positive Negative A 6940511334) LEUK CHAD (test code = 250/uL Negative A 3986207638) RBC/HPF (test code = See_Comment H [Autom ated message] 9956941300) The system mLED generated this result transmit lester reference range : 0 - 3 HPF. The refe rence range was not u sed to interpret th is result as normal/abnormal . WBC/HPF (test code = >182 See_Comment H [Autom ated message] 2589154255) The system mLED generated this result transmit lester reference range : 0 - 5 HPF. The refe rence range was not u sed to interpret th is result as normal/abnormal . BACTERIA (test code = Many Negative A 5928357648) MUCOUS (test code = Moderate Negative LPF A 8245545812) WBC CLUMPS (test code = See_Comment H [Au tomated message] 6365499374) The system mLED generated this result transmit lester reference range : <=1 HPF. The refere nce range was not u sed to interpret th is result as normal/abnormal . Lab Interpretation (test Abnormal code = 93852-6) [facility] WITH PRIO6470-20-15 00:46:14 Test Item Value Reference Range Interpretation [...] RDW-SD (test code = 47.6 fL 38.5-51.6 95038-0) RDW-CV (test code = 15.2 % 12.1-15.4 788-0) PLT (test code = See_Comment H [Automated 777-3) message] The sy stem which generated this result transmitted reference range : 150 - 328 10*3/ ?L. The reference r boubacar was not used to interpret this result as normal/abnormal . MPV (test code = 9.4 fL 9.8-13.0 L 16788-9) NRBC/100 WBC (test See_Comment [Automat ed code = 8515107676) message] The system which generated this result transmitted reference range : 0.0 - 10.0 /100 WBCs. The refer ence range was not u sed to interpret th is result as normal/abnormal . NRBC x10^3 (test code <0.01 See_Comment [Auto mated = 9334607439) message] The s ystem which generated this result transmitted reference range : 10*3/?L. The reference range was not used to interpret this result as normal/abnormal . GRAN MAT (NEUT) % 61.3 % (test code = 770-8) IMM GRAN % (test code 0.70 % = 8105766568) LYMPH % (test code = 26.4 % 736-9) MONO % (test code = 9.9 % 5905-5) EOS % (test code = 1.3 % 713-8) BASO % (test code = 0.4 % 706-2) GRAN MAT x10^3(ANC) 6.39 10*3/uL 1.99-6.95 (test code = 8023798367) IMM GRAN x10^3 (test 0.07 10*3/uL 0.00-0.06 H code = 6184489209) LYMPH x10^3 (test code 2.75 10*3/uL 1.09-3.23 = 731-0) MONO x10^3 (test code 1.03 10*3/uL 0.36-1.02 H = 742-7) EOS x10^3 (test code = 0.14 10*3/uL 0.06-0.53 711-2) BASO x10^3 (test code 0.04 10*3/uL 0.01-0.09 = 704-7) Lab Interpretation Abnormal (test code = 91557-9) [facility] [id number] 13:03:00 Test Item Value Reference Range Interpretation Comments POC-GLUCOSE METER 140 mg/dL 70-110 H : TESTED A T [facility] 6720 (BEAKER) (test code = [facility], 1538) 06789: Functional Tester/Techni rose ID = [id number] for AARON COTTRELL POCT-GLUCOSE [id number] 09:15:00 Test Item Value Reference Range Interpretation Comments POC-GLUCOSE METER 142 mg/dL 70-110 H : TESTED A T [facility] 6720 (BEAKER) (test code = [facility], [facility]8) 22579: Functional Tester/Techni rose ID = [id number] for AARON COTTRELL POCT-GLUCOSE [id number] 20:56:00 Test Item Value Reference Range Interpretation Comments POC-GLUCOSE METER 134 mg/dL 70-110 H : TESTED A T [facility] 6720 (BEAKER) (test code = [facility], [facility]8) 81848: Functional Tester/Techni rose ID = [id number] for MG LANZA POCT-GLUCOSE [id number] 16:46:00 Test Item Value Reference Range Interpretation Comments POC-GLUCOSE METER 91 mg/dL 70-110 : TESTED A T [facility] 6720 (BEAKER) (test code = [facility], [facility]8) 21270: Functional Tester/Techni rose ID = [id number] for AARON CABRAL POCT-GLUCOSE [id number] 12:19:00 Test Item Value Reference Range Interpretation Comments POC-GLUCOSE METER 237 mg/dL 70-110 H : TESTED A T [facility] 6720 (BEAKER) (test code = [facility], [facility]8) 25263: Functional Tester/Techni rose ID = [id number] for AARON COTTRELL MR, EXTREMITY, LOWER, WITHOUT CONTRAST, [id number] 09:12:00FINAL REPORT MRI of the right and [...] Garza Verified Date/Time: 07/29/2019 09:12:01 Reading Location: [address] Ortho Consult Reading Room MR, EXTREMITY, LOWER, WITHOUT CONTRAST, [id number] 09:12:00FINAL REPORT MRI of the right and [...] Garza Verified Date/Time: 07/29/2019 09:12:01 Reading Location: [facility] C013X Ortho Consult Reading Room POCT-GLUCOSE [id number] 08:47:00 Test Item Value Reference Range Interpretation Comments POC-GLUCOSE METER 264 mg/dL 70-110 H : TESTED A T [facility] 6720 (BEAKER) (test code = [facility], 1538) 35535: Functional Tester/Techni rose ID = [id number] for AARON COTTRELL ISLET CELL AB [id number] 07:43:00 Test Item Value Reference Range Interpretation Comments ISLET CELL AB Refer to individual AUTOVERIFICATION (test Islet Cell Ab code = 2556) and/or Islet Cell Ab Titer results. POCT-GLUCOSE [id number] 21:27:00 Test Item Value Reference Range Interpretation Comments POC-GLUCOSE METER 130 mg/dL 70-110 H : TESTED A T [facility] 6720 (BEAKER) (test code = [facility] [employer] [facility], 1538) 10213: Functional Tester/Techni rose ID = [id number] for FERNIE APARICIO BLOOD [id number] 13:00:00 Test Item Value Reference Range Interpretation Comments CULTURE (BEAKER) (test No growth in 5 days code = 1095) BLOOD [id number] 13:00:00 Test Item Value Reference Range Interpretation Comments CULTURE (BEAKER) (test No growth in 5 days code = 1095) POCT-GLUCOSE [id number] 12:57:00 Test Item Value Reference Range Interpretation Comments POC-GLUCOSE METER 138 mg/dL 70-110 H : TESTED A T [facility] 6720 ([facility]) (test code = [facility], 153) 72792: Functional Tester/Techni rose ID = [id number] for WI LLIS, JUAN ANTONIO POCT-GLUCOSE [id number] 08:43:00 Test Item Value Reference Range Interpretation Comments POC-GLUCOSE METER 226 mg/dL 70-110 H : TESTED A T [facility] 6720 ([facility]) (test code = [facility], 153) 39859: Functional Tester/Techni rose ID = [id number] for [place] LLIS, JUAN ANTONIO POCT-GLUCOSE [id number] 21:11:00 Test Item Value Reference Range Interpretation Comments POC-GLUCOSE METER 254 mg/dL 70-110 H : Notified RN/MD: ([facility]) (test code = TESTED AT [place] [address] 153) [facility], [address]: Functional Tester/Techni rose ID = [id number] for FERNIE APARICIO POCT-GLUCOSE [id number] 21:02:00 Test Item Value Reference Range Interpretation Comments POC-GLUCOSE METER 177 mg/dL 70-110 H : [facility]) (test code = [facility], 153) 75514: Functional Tester/Techni rose ID = [id number] for WI LLIS, JUAN ANTONIO POCT-GLUCOSE [id number] 12:31:00 Test Item Value Reference Range Interpretation Comments POC-GLUCOSE METER 215 mg/dL 70-110 H : [facility]) (test code = [facility], 153) 07457: Functional Tester/Techni rose ID = [id number] for WI LLIS, JUAN ANTONIO WOUND CULTURE + GRAM [id number] 10:10:00 Test Item Value Reference Interpretation Comments Range CULTURE ([facility]) PROTEUS MIRABILIS A 1+ Pro teus (test [...] gram negative (BEAKER) (test code = rods 392010) GRAM STAIN RESULT 2+ gram positive (BEAKER) (test code = rods 805347) GRAM STAIN RESULT <1+ gram negative (BEAKER) (test code = coccobacilli 226006) GRAM STAIN RESULT 2+ gram positive (BEAKER) (test code = cocci in pairs 750685) POCT-GLUCOSE [id number] 08:52:00 Test Item Value Reference Range Interpretation Comments POC-GLUCOSE METER 209 mg/dL 70-110 H : TESTED A T [facility] 6720 (BEAKER) (test code = [facility], 153) 15550: Functional Tester/Techni rose ID = [id number] for WI LLSPARKLE, JUAN ANTONIO POCT-GLUCOSE [id number] 21:26:00 Test Item Value Reference Range Interpretation Comments POC-GLUCOSE METER 255 mg/dL 70-110 H : TESTED A T [facility] 6720 (BEAKER) (test code = [facility], 153) 14399: Functional Tester/Techni rose ID = [id number] for MG LANZA POCT-GLUCOSE [id number] 17:34:00 Test Item Value Reference Range Interpretation Comments POC-GLUCOSE METER 227 mg/dL 70-110 H : TESTED A T [facility] 6720 (BEAKER) (test code = [facility], 153) 95922: Functional Tester/Techni rose ID = [id number] for CHAVEZ NNY, LETI POCT-GLUCOSE [id number] 11:28:00 Test Item Value Reference Range Interpretation Comments POC-GLUCOSE METER 282 mg/dL 70-110 H : TESTED A T [facility] 6720 (BEAKER) (test code = [facility], 1538) 48122: Functional Tester/Techni rose ID = [id number] for CHAVEZ NNY, LETI POCT-GLUCOSE [id number] 08:19:00 Test Item Value Reference Range Interpretation Comments POC-GLUCOSE METER 329 mg/dL 70-110 H : TESTED A T [facility] 6720 (BEAKER) (test code = [facility], 153) 10732: Functional Tester/Techni rose ID = [id number] for AARON COTTRELL POCT-GLUCOSE [id number] 21:32:00 Test Item Value Reference Range Interpretation Comments POC-GLUCOSE METER 275 mg/dL 70-110 H : TESTED A T [facility] 6720 (BEAKER) (test code = [facility] Damaso [facility], 1538) 76315: Functional Tester/Techni rose ID = [id number] for MG LANZA POCT-GLUCOSE [id number] 17:47:00 Test Item Value Reference Range Interpretation Comments POC-GLUCOSE METER 304 mg/dL 70-110 H : TESTED A T [facility] 6720 (BEAKER) (test code = [facility] Damaso [facility], 1538) 22998: Functional Tester/Techni rose ID = [id number] for SAM BLAIR, ERIN URINE [id number] 15:21:00 Test Item Value Reference Range Interpretation [...] Tobramycin (test code R = 25) POCT-GLUCOSE [id number] 12:16:00 Test Item Value Reference Range Interpretation Comments POC-GLUCOSE METER 337 mg/dL 70-110 H : TESTED A T [facility] 6720 (BEAKER) (test code = [facility], 1538) 14370: Functional Tester/Techni rose ID = [id number] for SAM BLAIR, ERIN BASIC METABOLIC [id number] 10:39:00 Test Item Value Reference Range Interpretation [...] S NOT APPLICABLE FOR DIALYSIS PATIEN TS. Functional Tester ID - JANET FPOCT-GLUCOSE [id number] 08:29:00 Test Item Value Reference Range Interpretation Comments POC-GLUCOSE METER 395 mg/dL 70-110 H : TESTED A T [facility] 6720 (BEAKER) (test code = LIZBETH Petit [facility], 1538) 48427: Functional Tester/Techni rose ID = [id number] for ERIN ARIZMENDI CBC W/PLT COUNT & AUTO [id number] 06:40:00 Test Item Value Reference Range Interpretation [...] PERCENT (BEAKER) (test code = 2801) POCT-GLUCOSE [id number] 19:55:00 Test Item Value Reference Range Interpretation Comments POC-GLUCOSE METER 369 mg/dL 70-110 H : TESTED A T [facility] 6720 (BEAKER) (test code = [facility], 153) 68678: Functional Tester/Techni rose ID = [id number] for MG LANZA POCT-GLUCOSE [id number] 16:45:00 Test Item Value Reference Range Interpretation Comments POC-GLUCOSE METER 272 mg/dL 70-110 H : TESTED A T [facility] 6720 (BEAKER) (test code = [facility], 153) 95071: Functional Tester/Techni rose ID = [id number] for FRIEDA PALOMINO POCT-GLUCOSE [id number] 11:40:00 Test Item Value Reference Range Interpretation Comments POC-GLUCOSE METER 277 mg/dL 70-110 H : TESTED A T [facility] 6720 (BEAKER) (test code = [place], 1538) 71970: Functional Tester/Techni rose ID = [id number] for FRIEDA PALOMINO BASIC METABOLIC [id number] 10:22:00 Test Item Value Reference Range Interpretation [...] S NOT APPLICABLE FOR DIALYSIS PATIEN TS. Functional Tester ID - NTPLIPID [id number] 10:17:00 Test Item Value Reference Range Interpretation [...] Borderline 130-159 High 160-189 Very High >=190 Functional Tester ID - NTP POCT-GLUCOSE [id number] 08:28:00 Test Item Value Reference Range Interpretation Comments POC-GLUCOSE METER 388 mg/dL 70-110 H : TESTED A T [facility] 6720 (BEAKER) (test code = [place], 1538) 44788: Functional Tester/Techni rose ID = [id number] for AARON COTTRELL HEMOGLOBIN [id number] 07:54:00 Test Item Value Reference Range Interpretation Comments HEMOGLOBIN A1C (BEAKER) (test code = 10.4 % 4.3-6.1 H 368) CBC W/PLT COUNT & AUTO [id number] 05:56:00 Test Item Value Reference Range Interpretation [...] LYMPHOCYTES ABSOLUTE COUNT 2.03 K/ L 1.32-3.57 ([facility]) (test code = 414) MONOCYTES ABSOLUTE COUNT (BEAKER) 0.63 K/ L 0.30-0.82 (test code = 415) EOSINOPHILS ABSOLUTE COUNT 0.15 K/ L 0.04-0.54 (AKER) (test code = 416) BASOPHILS ABSOLUTE COUNT ([facility]) 0.03 K/ L 0.01-0.08 (test code = 417) IMMATURE GRANULOCYTES-RELATIVE 1 % 0-1 PERCENT ([facility]) (test code = 2801) POCT-GLUCOSE [id number] 23:47:00 Test Item Value Reference Range Interpretation Comments POC-GLUCOSE METER 359 mg/dL 70-110 H : Notified RN/MD: ([facility]) (test code = TESTED AT [place] [address] 153) [facility], [address]: Functional Tester/Techni rose ID = [id number] for LATHBRIDGE, MICHELINE ICE POCT-GLUCOSE [id number] 21:13:00 Test Item Value Reference Range Interpretation Comments POC-GLUCOSE METER 315 mg/dL 70-110 H : [facility] ([facility]) (test code = [facility], 153) 14887: Functional Tester/Techni rose ID = [id number] for Sm ith, Ana POCT-GLUCOSE [id number] 21:13:00 Test Item Value Reference Range Interpretation Comments POC-GLUCOSE METER 331 mg/dL 70-110 H : [facility] ([facility]) (test code = [facility], 153) 07490: Functional Tester/Techni rose ID = [id number] for RO DGERS, JAMECA POCT-GLUCOSE [id number] 10:30:00 Test Item Value Reference Range Interpretation Comments POC-GLUCOSE METER 341 mg/dL 70-110 H : [facility] ([facility]) (test code = [facility], 153) 78515: Functional Tester/Techni rose ID = [id number] for Sm ith, Ana CBC W/PLT COUNT & AUTO [id number] 08:48:00 Test Item Value Reference Range Interpretation [...] (BEAKER) (test code = Present 1371) HEMOGLOBIN [id number] 06:39:00 Test Item Value Reference Range Interpretation Comments HEMOGLOBIN A1C (BEAKER) (test code = 10.5 % 4.3-6.1 H 368) LIPID [id number] 04:57:00 Test Item Value Reference Range Interpretation [...] Very High >=190 Specimen moderately lipemicBASIC METABOLIC [id number] 04:56:00 Test Item Value Reference Range Interpretation [...] NOT APPLICABLE FOR DIALYSIS PATIEN TS. POCT-GLUCOSE [id number] 21:53:00 Test Item Value Reference Range Interpretation Comments POC-GLUCOSE METER > mg/dL 70-110 HH : Notified RN/MD: TESTED (FELICIANO) (test code = AT [address] 7898) [facility], 7[address] 30: Functional Tester/Techni rose ID = [id number] for DESIRAE MENDOZA U/S, ABDOMINAL, [id number] 19:54:00Reason for exam:->Evaluation of [employer] shunt and for possible cyst or pseudocyst [...] CT scan would bemore sensitive. Signed: Solo [place] Verified Date/Time: 07/22/2019 19:54:10 Reading Location: [address] Consult Reading Room POCT-GLUCOSE [id number] 19:34:00 Test Item Value Reference Range Interpretation Comments POC-GLUCOSE METER 474 mg/dL 70-110 HH : Notified RN/: (FELICIANO) (test code = TESTED AT [facility] 9821 8499) [facility], [address]: Functional Tester/Techni rose ID = [id number] for MARILYNN MAO URINALYSIS W/ REFLEX URINE [id number] 17:48:00 Test Item Value Reference Range Interpretation [...] = Moderate 517) SOURCE(BEAKER) (test code = 6996) CBC W/PLT COUNT & AUTO [id number] 17:38:00 Test Item Value Reference Range Interpretation [...] 3438) Received comment: User comments: Slide comments:POCT-GLUCOSE [id number] 16:27:00 Test Item Value Reference Range Interpretation Comments POC-GLUCOSE METER 424 mg/dL 70-110 HH : Notified RN/MD: (BEAKER) (test code = TESTED AT [facility] 3951 1958) [facility], [address]: Functional Tester/Techni rose ID = [id number] for AK INSONU, MARILYNN CT, BRAIN, WITHOUT [id number] 15:31:00FINAL REPORT CT, BRAIN, WITHOUT CONTRAST CLINICAL [...] MDReport Verified Date/Time: 07/22/2019 15:31:08 Reading Location: [facility] C0[facility] Neuro Reading Room RAD, SHUNT [id number] 15:13:00Reason for exam:->concern for VPS malfunction FINAL [...] MDReport Verified Date/Time: 07/22/2019 15:13:54 Reading Location: [facility] Radiology Reading Room POCT-GLUCOSE METER 2019-07-22 11:38:00 Test Item Value Reference Range Interpretation Comments POC-GLUCOSE METER 394 mg/dL 70-110 H : TESTED A T [facility] 6720 [facility] (test code = LIZBETH Petit [facility], 1538) 63698: Functional Tester/Techni rose ID = [id number] for MARILYNN MAO HEMOGLOBIN [id number] 09:15:00 Test Item Value Reference Range Interpretation Comments HEMOGLOBIN A1C (BEAKER) (test code = 10.4 % 4.3-6.1 H 368) TSH/FREE T4 IF [id number] 07:54:00 Test Item Value Reference Range Interpretation Comments THYROID STIMULATING HORMONE 1.40 uIU/mL 0.35-4.94 (BEAKER) (test code = 772) POCT-GLUCOSE [id number] 07:48:00 Test Item Value Reference Range Interpretation Comments POC-GLUCOSE METER > mg/dL 70-110 HH : Notified RN/MD: TESTED (BEAKER) (test code = AT [facility] 6720 [facility] 1538) [facility], 770 30: Functional Tester/Techni rose ID = [id number] for MARILYNN SMITH BASIC METABOLIC [id number] 07:44:00 Test Item Value Reference Range Interpretation [...] NOT APPLICABLE FOR DIALYSIS PATIEN TS. LIPID [id number] 07:34:00 Test Item Value Reference Range Interpretation [...] mg/dL 70-110 H : TESTED A T [facility] 6720 ([facility] (test code = [place], 1538) [address]: Functional Tester/Techni rose ID = [id number] for MATEUS ALEJANDROCHERYLE COYNE RAD, FOOT, 2 VIEWS, [id number] 22:28:00Reason for exam:->osteomyletitis FINAL REPORT TECHNIQUE: Two [...] [place] Verified Date/Time: 07/21/2019 22:28:25 Reading Location: [address] Consult Reading Room RAD, FOOT, 2 VIEWS, [id number] 22:28:00Reason for exam:->osteomyletitsFINAL REPORT TECHNIQUE: Two views [...] [place] Verified Date/Time: 07/21/2019 22:28:25 Reading Location: [facility] C0[facility] Consult Reading Room POCT-GLUCOSE METER 2019-07-21 21:04:00 Test Item Value Reference Range Interpretation Comments POC-GLUCOSE METER 430 mg/dL 70-110 HH : Notified RN/MD: (FELICIANO) (test code = TESTED AT [facility] 6720 1538) [facility], [address]: Functional Tester/Techni rose ID = [id number] for ALBERTO OLIVER ERTAPENEM:SUSC:PT:ISOLATE:ORDQN:[id number] 16:48:00 Test Item Value Reference Range Interpretation Comments Culture: Urine (test >100,000 CFU/mL Proteus code = Culture: mirabilis 10,000 - Urine) 50,000 CFU/mL [facility]annERTAPENEM:SUSC:PT:ISOLATE:ORDQN:[id number] 16:48:00 Test Item Value Reference Range Interpretation Comments Proteus mirabilis (test Proteus mirabilis code = Proteus mirabilis) [facility] AND [id number] 16:48:00 Test Item Value Reference Range Interpretation Comments UA Nitrite (test code Negative (05/22/18 10:48 = UA Nitrite) AM) [facility] AND [id number] 16:48:00 Test Item Value Reference Range Interpretation Comments UA Bili (test code = Negative *NA*(05/22/18 UA Bili) 10:48 AM) [facility] AND [id number] 16:48:00 Test Item Value Reference Range Interpretation Comments UA Ketones (test code Negative *NA*(05/22/18 = UA Ketones) 10:48 AM) [facility] AND [id number] 16:48:00 Test Item Value Reference Range Interpretation Comments UA Blood (test code = Trace *ABN*(05/22/18 UA Blood) 10:48 AM) [facility] AND [id number] 16:48:00 Test Item Value Reference Range Interpretation Comments UA Urobilinogen (test code = UA 0.2 0.1-1.0 Urobilinogen) [facility] AND [id number] 16:48:00 Test Item Value Reference Range Interpretation Comments UA Leuk Est (test code Large *ABN*(05/22/18 = UA Leuk Est) 10:48 AM) [facility] AND [id number] 16:48:00 Test Item Value Reference Range Interpretation Comments UA Protein (test code Negative (05/22/18 10:48 = UA Protein) AM) [facility] AND [id number] 16:48:00 Test Item Value Reference Range Interpretation Comments UA Glucose (test code Negative (05/22/18 10:48 = UA Glucose) AM) [facility] AND [id number] 16:48:00 Test Item Value Reference Range Interpretation Comments UA pH (test code = UA pH) 7.0 1 5.0-8.0 [facility] AND [id number] 16:48:00 Test Item Value Reference Range Interpretation Comments UA Spec Grav (test code = UA Spec 1.015 1 Grav) [facility] AND [id number] 16:48:00 Test Item Value Reference Range Interpretation Comments UA Color (test code = Yellow *NA*(05/22/18 UA Color) 10:48 AM) [facility] AND [id number] 16:48:00 Test Item Value Reference Range Interpretation Comments UA Turbidity (test code = Clear (05/22/18 10:48 UA Turbidity) AM) [facility] AND [id number] 16:48:00 Test Item Value Reference Range Interpretation Comments UA Mucus (test code = UA Mucus) Few /LPF [facility] AND [id number] 16:48:00 Test Item Value Reference Range Interpretation Comments UA Bacteria (test code = UA Few /HPF Bacteria) [facility] AND [id number] 16:48:00 Test Item Value Reference Range Interpretation Comments UA RBC (test code = 0-2 /HPF See_Comment [Automa lester message] The UA RBC) system which ge nerated this result tra nsmitted reference range : <=2. The reference range was not used to interpr et this result as dany l/abnormal. [facility] AND [id number] 16:48:00 Test Item Value Reference Range Interpretation Comments UA Sq Epi (test code = None Seen (05/22/18 UA Sq Epi) 10:48 AM) [facility] AND [id number] 16:48:00 Test Item Value Reference Range Interpretation Comments UA WBC (test code = UA WBC) 51-100 /HPF [id number] 11:57:00 Test Item Value Reference Range Interpretation Comments Antibody Scrn (test Negative (05/22/18 5:57 code = Antibody Scrn) AM) [facility] [id number] 11:57:00 Test Item Value Reference Range Interpretation Comments ABO/Rh (test code = ABO/Rh) AB POS [facility] 11:57:00 Test Item Value Reference Range Interpretation Comments PTT (test code = PTT) 33.[address] [facility]vcIJFBHTCIJQ2895-15-51 11:57:00 Test Item Value Reference Range Interpretation Comments PT (test code = PT) 13.7 s 12.0-14.7 [facility]hy[facility]hJCGMLAEKNT2942-11-06 11:57:00 Test Item Value Reference Range Interpretation Comments INR (test code = INR) 1.05 1 0.85-1.17 [facility] AustinYeyzbekIBKEWQWLPR4439-04-88 10:50:01 Test Item Value Reference Range Interpretation Comments RDW (test code = RDW) 18.9 11.5-14.5 [facility] AustinAoycnunRBNJLAELEH6549-19-56 10:50:01 Test Item Value Reference Range Interpretation Comments Hct (test code = Hct) 43.3 42.0-54.0 [facility] AustinXydfamsXKLFTJYAOQ7130-97-71 10:50:01 Test Item Value Reference Range Interpretation Comments WBC (test code = WBC) 9.3 3.7-10.4 [facility] AustinMnphgddOICBKEBFBC8208-38-27 10:50:01 Test Item Value Reference Range Interpretation Comments Hgb (test code = Hgb) 14.7 14.0-18.0 [facility] AustinGjwhavuQAGIAXNIDI7308-61-17 10:50:01 Test Item Value Reference Range Interpretation Comments RBC (test code = RBC) 5.36 4.70-6.10 [facility] AustinNuylftqPPEHTJOCQR5221-77-07 10:50:01 Test Item Value Reference Range Interpretation Comments Eosinophils # (test code 0.2 See_Comment [A utomated message] The = Eosinophils #) system whic h generated this result tra nsmitted reference range : <=0.5. The reference r boubacar was not used to int erpret this result as normal/abnormal . [facility] AustinYvfuxtfTVPDXLPUPD3232-72-80 10:50:01 Test Item Value Reference Range Interpretation Comments Basophils # (test code 0.1 See_Comment [Aut omated message] The = Basophils #) system which generated this result tra nsmitted reference range : <=0.2. The reference r boubacar was not used to int erpret this result as normal/abnormal . [facility] AustinLdbiebcXXOEQPCPIJ2872-59-81 10:50:01 Test Item Value Reference Range Interpretation Comments Lymphocytes # (test code = Lymphocytes 1.8 1.0-5.5 #) [facility] AustinWsxgakyOSVPNYDNMI3492-99-73 10:50:01 Test Item Value Reference Range Interpretation Comments Monocytes # (test code 0.9 See_Comment [Aut omated message] The = Monocytes #) system which generated this result tra nsmitted reference range : <=0.8. The reference r boubacar was not used to int erpret this result as normal/abnormal . [facility] AustinZwvksyaCHLWGOAPPI8417-36-36 10:50:01 Test Item Value Reference Range Interpretation Comments Neutrophils # (test code = Neutrophils 6.3 1.5-8.1 #) [facility] AustinCszlholKLWEXFOSZE0156-59-56 10:50:01 Test Item Value Reference Range Interpretation Comments Eosinophils (test code = 2.0 See_Comment [A utomated message] The Eosinophils) system which ge nerated this result tra nsmitted reference range : <=4.0. The reference r boubacar was not used to int erpret this result as normal/abnormal . [facility] AustinPeirzczWDMDXSMAPU6534-46-54 10:50:01 Test Item Value Reference Range Interpretation Comments Segs (test code = Segs) 67.4 45.0-75.0 [facility] AustinQgqlbgoFAGLSWABAX6303-33-63 10:50:01 Test Item Value Reference Range Interpretation Comments Lymphocytes (test code = Lymphocytes) 19.9 20.0-40.0 [facility] AustinLbkbxtbTMFCNLSRJP1930-45-84 10:50:01 Test Item Value Reference Range Interpretation Comments Basophils (test code = 1.0 See_Comment [Aut omated message] The Basophils) system which ge nerated this result tra nsmitted reference range : <=1.0. The reference r boubacar was not used to int erpret this result as normal/abnormal . [facility] AustinKhhtleuZKGPMSWLBZ4622-50-01 10:50:01 Test Item Value Reference Range Interpretation Comments Monocytes (test code = Monocytes) 9.7 2.0-12.0 [facility]2018-11-08 10:50:01 Test Item Value Reference Range Interpretation Comments eGFR (test code = eGFR) 133 [facility]2018-11-08 10:50:01 Test Item Value Reference Range Interpretation Comments Calcium Lvl (test code = Calcium Lvl) 9.4 8.5-10.5 [facility]2018-11-08 10:50:01 Test Item Value Reference Range Interpretation Comments CO2 (test code = CO2) 28 24-32 [facility]2018-11-08 10:50:01 Test Item Value Reference Range Interpretation Comments BUN (test code = BUN) 14 7-22 [facility]2018-11-08 10:50:01 Test Item Value Reference Range Interpretation Comments Glucose Lvl (test code = Glucose Lvl) 89 70-99 [facility]2018-11-08 10:50:01 Test Item Value Reference Range Interpretation Comments Chloride Lvl (test code = Chloride Lvl) 104 95-109 [facility]2018-11-08 10:50:01 Test Item Value Reference Range Interpretation Comments Potassium Lvl (test code = Potassium 4.2 3.5-5.1 Lvl) [facility]2018-11-08 10:50:01 Test Item Value Reference Range Interpretation Comments Sodium Lvl (test code = Sodium Lvl) 137 135-145 [facility]2018-11-08 10:50:01 Test Item Value Reference Range Interpretation Comments Creatinine Lvl (test code = Creatinine 0.85 0.50-1.40 Lvl) [facility]2018-11-08 10:50:01 Test Item Value Reference Range Interpretation Comments AGAP (test code = AGAP) 9.2 10.0-20.0 [facility] AustinOmskcoeLBPLLFIHKF4973-96-62 10:50:01 Test Item Value Reference Range Interpretation Comments ACT (TEG) Rapid (test code = ACT (TEG) 136 s 86-118 Rapid) [facility] AustinVodcxqkFZEPHGUKGO3361-26-93 10:50:01 Test Item Value Reference Range Interpretation Comments Split Point Rapid (test code = Split 0.6 min Point Rapid) [facility] AustinAqovnvwUANUUVOATG8306-38-03 10:50:01 Test Item Value Reference Range Interpretation Comments R-time Rapid (test code = R-time 0.9 min 0.4-0.7 Rapid) [facility] AustinSpjgikcIMLTBYLJPY6857-84-68 10:50:01 Test Item Value Reference Range Interpretation Comments K-time Rapid (test code = K-time 1.4 min 0.6-2.3 Rapid) [facility] AustinZpkpmveLBPGEMCYOY9621-59-53 10:50:01 Test Item Value Reference Range Interpretation Comments Angle Rapid (test code = Angle 71 degrees 64-80 Rapid) [facility] AustinDrxfjtaXZAWCCTKVS3251-75-27 10:50:01 Test Item Value Reference Range Interpretation Comments G-value Rapid (test code = G-value 12.7 5.0-11.6 Rapid) [facility] AustinBxeogzoHWZAQYMFRE2658-52-94 10:50:01 Test Item Value Reference Range Interpretation Comments Max Amplitude Rapid (test code = Max 72 mm 52-71 Amplitude Rapid) [facility] AustinMyaybidRKPUHJYSHK4025-82-78 10:50:01 Test Item Value Reference Range Interpretation Comments Estimated % Lysis Rapid 0.1 See_Comment [Au tomated message] The (test code = Estimated syste m which generated % Lysis Rapid) this result t ransmitted reference range : <=7.5. The reference r boubacar was not used to int erpret this result as normal/abnormal . [facility] AustinSfqdodkKOVFDTHKYL1870-24-93 10:50:01 Test Item Value Reference Range Interpretation Comments Platelet (test code = Platelet) 367 133-450 [facility] AustinShsxlmkTCXLTCCFZX4032-40-17 10:50:01 Test Item Value Reference Range Interpretation Comments MPV (test code = MPV) 7.8 7.4-10.4 [facility] AustinZgawdnbYPHIKLNSJZ8112-45-63 10:50:01 Test Item Value Reference Range Interpretation Comments MCH (test code = MCH) 27.4 pg 27.0-31.0 [facility] AustinEyittwtOIMRWNCTHV4809-54-63 10:50:01 Test Item Value Reference Range Interpretation Comments MCV (test code = MCV) 80.7 80.0-94.0 [facility] AustinMbxrexwCRKWQRXMEF1006-00-27 10:50:01 Test Item Value Reference Range Interpretation Comments MCHC (test code = MCHC) 34.0 32.0-36.0 [facility]2018-05-08 05:42:00 Test Item Value Reference Range Interpretation Comments B/C Ratio (test code = B/C Ratio) 17 1 6-25 [facility]2018-05-08 05:42:00 Test Item Value Reference Range Interpretation Comments Globulin (test code = Globulin) 4.3 2.7-4.2 [facility]2018-05-08 05:42:00 Test Item Value Reference Range Interpretation Comments A/G Ratio (test code = A/G Ratio) 0.7 1 0.7-1.6 [facility]2018-05-08 05:42:00 Test Item Value Reference Range Interpretation Comments AGAP (test code = AGAP) 14.4 10.0-20.0 [facility]2018-05-08 05:42:00 Test Item Value Reference Range Interpretation Comments eGFR (test code = eGFR) 113 [facility]2018-05-08 05:42:00 Test Item Value Reference Range Interpretation Comments Alk Phos (test code = Alk Phos) 76 39-136 [facility]2018-05-08 05:42:00 Test Item Value Reference Range Interpretation Comments ALT (test code = ALT) 35 See_Comment [Auto mated message] The system which ge nerated this result transmit lester reference range : <=65. The reference range was not used to interpr et this result as dany l/abnormal. [facility]2018-05-08 05:42:00 Test Item Value Reference Range Interpretation Comments Albumin Lvl (test code = Albumin Lvl) 2.8 3.5-5.0 [facility]2018-05-08 05:42:00 Test Item Value Reference Range Interpretation Comments Total Protein (test code = Total 7.1 6.4-8.4 Protein) [facility]2018-05-08 05:42:00 Test Item Value Reference Range Interpretation Comments Calcium Lvl (test code = Calcium Lvl) 8.7 8.5-10.5 [facility]2018-05-08 05:42:00 Test Item Value Reference Range Interpretation Comments AST (test code = AST) 18 See_Comment [Auto mated message] The system which ge nerated this result transmit lester reference range : <=37. The reference range was not used to interpr et this result as dany l/abnormal. [facility]2018-05-08 05:42:00 Test Item Value Reference Range Interpretation Comments Bili Total (test code = Bili Total) 0.3 0.2-1.3 [facility]2018-05-08 05:42:00 Test Item Value Reference Range Interpretation Comments Potassium Lvl (test code = Potassium 4.4 3.5-5.1 Lvl) [facility]2018-05-08 05:42:00 Test Item Value Reference Range Interpretation Comments Chloride Lvl (test code = Chloride Lvl) 109 95-109 [facility]2018-05-08 05:42:00 Test Item Value Reference Range Interpretation Comments CO2 (test code = CO2) 23 24-32 [facility]2018-05-08 05:42:00 Test Item Value Reference Range Interpretation Comments Glucose Lvl (test code = Glucose Lvl) 114 70-99 [facility]2018-05-08 05:42:00 Test Item Value Reference Range Interpretation Comments Creatinine Lvl (test code = Creatinine 1.01 0.50-1.40 Lvl) [facility]2018-05-08 05:42:00 Test Item Value Reference Range Interpretation Comments BUN (test code = BUN) 17 7-22 [facility]2018-05-08 05:42:00 Test Item Value Reference Range Interpretation Comments Sodium Lvl (test code = Sodium Lvl) 142 135-145 [facility] AustinCkjkcldKHEKQPRXDL0262-22-88 05:42:00 Test Item Value Reference Range Interpretation Comments Basophils (test code = 0.6 See_Comment [Aut omated message] The Basophils) system which ge nerated this result tra nsmitted reference range : <=1.0. The reference r boubacar was not used to int erpret this result as normal/abnormal . [facility] AustinFqiysevTHEMPWSVAK4241-74-75 05:42:00 Test Item Value Reference Range Interpretation Comments Segs-Bands # (test code = Segs-Bands #) 4.8 1.5-8.1 [facility] AustinFrfcdwzXMQLBXLYAP3867-14-03 05:42:00 Test Item Value Reference Range Interpretation Comments Monocytes # (test code 0.7 See_Comment [Aut omated message] The = Monocytes #) system which generated this result tra nsmitted reference range : <=0.8. The reference r boubacar was not used to int erpret this result as normal/abnormal . [facility] AustinYinbakqVIRTTEYUKT5665-17-25 05:42:00 Test Item Value Reference Range Interpretation Comments Lymphocytes # (test code = Lymphocytes 1.9 1.0-5.5 #) [facility] AustinBftunhiCGYXZFHZPC4626-81-48 05:42:00 Test Item Value Reference Range Interpretation Comments Monocytes (test code = Monocytes) 9.4 2.0-12.0 [facility] AustinWqufhfnXLJIEXDKLX6321-14-20 05:42:00 Test Item Value Reference Range Interpretation Comments Eosinophils # (test code 0.2 See_Comment [A utomated message] The = Eosinophils #) system whic h generated this result tra nsmitted reference range : <=0.5. The reference r boubacar was not used to int erpret this result as normal/abnormal . [facility] AustinLyxswunBSQVOWWKBI3739-16-54 05:42:00 Test Item Value Reference Range Interpretation Comments Eosinophils (test code = 2.9 See_Comment [A utomated message] The Eosinophils) system which ge nerated this result tra nsmitted reference range : <=4.0. The reference r boubacar was not used to int erpret this result as normal/abnormal . [facility] AustinDfyuscsYRKMKZEHLZ4843-61-80 05:42:00 Test Item Value Reference Range Interpretation Comments Segs (test code = Segs) 62.2 45.0-75.0 [facility] AustinApdtsnjFQHHFVRNJE3394-74-36 05:42:00 Test Item Value Reference Range Interpretation Comments Lymphocytes (test code = Lymphocytes) 24.9 20.0-40.0 [facility] AustinLhxvkmnFGWOVBTNLU4906-44-09 05:42:00 Test Item Value Reference Range Interpretation Comments MCH (test code = MCH) 27.5 pg 27.0-31.0 [facility] AustinLqwvqyeGATCGSZQBN4426-63-48 05:42:00 Test Item Value Reference Range Interpretation Comments MCV (test code = MCV) 85.3 80.0-94.0 [facility] AustinYniaqefZTFCQKTJXX4859-22-56 05:42:00 Test Item Value Reference Range Interpretation Comments Hct (test code = Hct) 43.9 42.0-54.0 [facility] AustinBxlmincNYBQOBBUUH7089-25-51 05:42:00 Test Item Value Reference Range Interpretation Comments Hgb (test code = Hgb) 14.2 14.0-18.0 [facility] AustinGirkpwrDGNZZOYBCA9455-17-00 05:42:00 Test Item Value Reference Range Interpretation Comments WBC (test code = WBC) 7.7 3.7-10.4 [facility] AustinRqngmxtSMCFLKZJFF5228-50-67 05:42:00 Test Item Value Reference Range Interpretation Comments RBC (test code = RBC) 5.15 4.70-6.10 [facility] AustinRbvfmicFCPSAOMRTZ1341-98-27 05:42:00 Test Item Value Reference Range Interpretation Comments MPV (test code = MPV) 8.4 7.4-10.4 [place] 025548-05-08 05:42:00 Test Item Value Reference Range Interpretation Comments MCHC (test code = MCHC) 32.3 32.0-36.0 [facility] AustinNbyvcyfNGQQTCCCGK8254-30-32 05:42:00 Test Item Value Reference Range Interpretation Comments RDW (test code = RDW) 17.3 11.5-14.5 [facility] AustinHwvdxajJJFYRWSXTO6063-88-26 05:42:00 Test Item Value Reference Range Interpretation Comments Platelet (test code = Platelet) 317 133-450 [facility]2018-05-07 09:36:00 Test Item Value Reference Range Interpretation Comments Globulin (test code = Globulin) 4.4 2.7-4.2 [facility]2018-05-07 09:36:00 Test Item Value Reference Range Interpretation Comments A/G Ratio (test code = A/G Ratio) 0.6 1 0.7-1.6 [facility]2018-05-07 09:36:00 Test Item Value Reference Range Interpretation Comments B/C Ratio (test code = B/C Ratio) 17 1 6-25 [facility]2018-05-07 09:36:00 Test Item Value Reference Range Interpretation Comments AGAP (test code = AGAP) 11.3 10.0-20.0 [facility]2018-05-07 09:36:00 Test Item Value Reference Range Interpretation Comments eGFR (test code = eGFR) 134 [facility]2018-05-07 09:36:00 Test Item Value Reference Range Interpretation Comments Creatinine Lvl (test code = Creatinine 0.84 0.50-1.40 Lvl) [facility]2018-05-07 09:36:00 Test Item Value Reference Range Interpretation Comments Sodium Lvl (test code = Sodium Lvl) 142 135-145 [facility]2018-05-07 09:36:00 Test Item Value Reference Range Interpretation Comments Glucose Lvl (test code = Glucose Lvl) 99 70-99 [facility]2018-05-07 09:36:00 Test Item Value Reference Range Interpretation Comments BUN (test code = BUN) 14 7-22 [facility]2018-05-07 09:36:00 Test Item Value Reference Range Interpretation Comments Alk Phos (test code = Alk Phos) 79 39-136 [facility]2018-05-07 09:36:00 Test Item Value Reference Range Interpretation Comments Bili Total (test code = Bili Total) 0.3 0.2-1.3 [facility]2018-05-07 09:36:00 Test Item Value Reference Range Interpretation Comments AST (test code = AST) 14 See_Comment [Auto mated message] The system which ge nerated this result transmit lester reference range : <=37. The reference range was not used to interpr et this result as dany l/abnormal. [place] 789438-05-07 09:36:00 Test Item Value Reference Range Interpretation Comments ALT (test code = ALT) 43 See_Comment [Auto mated message] The system which ge nerated this result transmit lester reference range : <=65. The reference range was not used to interpr et this result as dany l/abnormal. [facility]2018-05-07 09:36:00 Test Item Value Reference Range Interpretation Comments Total Protein (test code = Total 7.1 6.4-8.4 Protein) [place] 789438-05-07 09:36:00 Test Item Value Reference Range Interpretation Comments Albumin Lvl (test code = Albumin Lvl) 2.7 3.5-5.0 [place] 789438-05-07 09:36:00 Test Item Value Reference Range Interpretation Comments Calcium Lvl (test code = Calcium Lvl) 9.2 8.5-10.5 [facility]2018-05-07 09:36:00 Test Item Value Reference Range Interpretation Comments CO2 (test code = CO2) 21 24-32 [place] 789438-05-07 09:36:00 Test Item Value Reference Range Interpretation Comments Potassium Lvl (test code = Potassium 4.3 3.5-5.1 Lvl) [facility]2018-05-07 09:36:00 Test Item Value Reference Range Interpretation Comments Chloride Lvl (test code = Chloride Lvl) 114 95-109 [facility] AustinUzxcdmaDEGSNSCMGM6226-49-43 09:36:00 Test Item Value Reference Range Interpretation Comments MCHC (test code = MCHC) 32.5 32.0-36.0 [place] 025548-05-07 09:36:00 Test Item Value Reference Range Interpretation Comments RDW (test code = RDW) 17.5 11.5-14.5 [facility] AustinFhvfkzrKKOZDPUDBK2553-85-46 09:36:00 Test Item Value Reference Range Interpretation Comments Platelet (test code = Platelet) 400 133-450 [facility] AustinOcbmjraAGGGERPNDJ1111-48-54 09:36:00 Test Item Value Reference Range Interpretation Comments MPV (test code = MPV) 8.5 7.4-10.4 [facility] AustinHaduaajELFOZXSSWX8298-75-19 09:36:00 Test Item Value Reference Range Interpretation Comments WBC (test code = WBC) 6.6 3.7-10.4 [facility] AustinKttdidsEGTREBMQSM2307-12-93 09:36:00 Test Item Value Reference Range Interpretation Comments RBC (test code = RBC) 5.17 4.70-6.10 [facility] AustinMiytltoYTVZGYORGG5270-07-79 09:36:00 Test Item Value Reference Range Interpretation Comments MCV (test code = MCV) 86.1 80.0-94.0 [facility] AustinZxirjblKSZTCSBTPS8111-15-77 09:36:00 Test Item Value Reference Range Interpretation Comments Hct (test code = Hct) 44.5 42.0-54.0 [facility] AustinDvkhzfeCUGTXHHRHA8516-61-39 09:36:00 Test Item Value Reference Range Interpretation Comments MCH (test code = MCH) 28.0 pg 27.0-31.0 [facility] AustinMxmtkurOBRAIKVKMK6555-97-45 09:36:00 Test Item Value Reference Range Interpretation Comments Hgb (test code = Hgb) 14.5 14.0-18.0 [facility] AustinVkteqkwZILQAMPPPM8354-05-44 09:36:00 Test Item Value Reference Range Interpretation Comments Lymphocytes # (test code = Lymphocytes 1.7 1.0-5.5 #) [facility] AustinIgacbcdHQBSZBEIUM8767-50-48 09:36:00 Test Item Value Reference Range Interpretation Comments Monocytes # (test code 0.7 See_Comment [Aut omated message] The = Monocytes #) system which generated this result tra nsmitted reference range : <=0.8. The reference r boubacar was not used to int erpret this result as normal/abnormal . [facility] AustinCecolrwAJHTZOFRRP6358-93-65 09:36:00 Test Item Value Reference Range Interpretation Comments Eosinophils # (test code 0.2 See_Comment [A utomated message] The = Eosinophils #) system whic h generated this result tra nsmitted reference range : <=0.5. The reference r boubacar was not used to int erpret this result as normal/abnormal . [facility] AustinMxyctanNXMJUUTENX2958-67-43 09:36:00 Test Item Value Reference Range Interpretation Comments Lymphocytes (test code = Lymphocytes) 26.1 20.0-40.0 [facility] AustinFtgypxyYMRQETYIIM6091-22-14 09:36:00 Test Item Value Reference Range Interpretation Comments Segs (test code = Segs) 59.3 45.0-75.0 [facility] AustinObauuajJVTFJCJFMG8753-49-89 09:36:00 Test Item Value Reference Range Interpretation Comments Basophils (test code = 0.8 See_Comment [Aut omated message] The Basophils) system which ge nerated this result tra nsmitted reference range : <=1.0. The reference r boubacar was not used to int erpret this result as normal/abnormal . [facility] AustinNndkvpbGKUFQKQURY3058-24-77 09:36:00 Test Item Value Reference Range Interpretation Comments Monocytes (test code = Monocytes) 10.5 2.0-12.0 [facility] AustinHeayeysGNOJVLWCSG4850-97-79 09:36:00 Test Item Value Reference Range Interpretation Comments Eosinophils (test code = 3.3 See_Comment [A utomated message] The Eosinophils) system which ge nerated this result tra nsmitted reference range : <=4.0. The reference r boubacar was not used to int erpret this result as normal/abnormal . [facility] AustinRwrfekiWVIOXWQLVX2177-48-54 09:36:00 Test Item Value Reference Range Interpretation Comments Segs-Bands # (test code = Segs-Bands #) 3.9 1.5-8.1 [facility]MnplixwTMYXJEKBZR4616-94-88 21:02:00 Test Item Value Reference Range Interpretation Comments Vanco Tr TND (test code = Vanco Tr 15:30pm TND) [place] 44881018-05-06 21:02:00 Test Item Value Reference Range Interpretation Comments Vanco Tr (test code = Vanco Tr) 9.1 [facility]2018-05-06 07:07:00 Test Item Value Reference Range Interpretation Comments Glucose Lvl (test code = Glucose Lvl) 74 70-99 [place] 789438-05-06 07:07:00 Test Item Value Reference Range Interpretation Comments BUN (test code = BUN) 12 7-22 [place] 789438-05-06 07:07:00 Test Item Value Reference Range Interpretation Comments Creatinine Lvl (test code = Creatinine 0.75 0.50-1.40 Lvl) [place] 789438-05-06 07:07:00 Test Item Value Reference Range Interpretation Comments eGFR (test code = eGFR) 140 [place] 789438-05-06 07:07:00 Test Item Value Reference Range Interpretation Comments Albumin Lvl (test code = Albumin Lvl) 2.9 3.5-5.0 [place] 789438-05-06 07:07:00 Test Item Value Reference Range Interpretation Comments Globulin (test code = Globulin) 4.4 2.7-4.2 [place] 789438-05-06 07:07:00 Test Item Value Reference Range Interpretation Comments A/G Ratio (test code = A/G Ratio) 0.7 1 0.7-1.6 [place] 789438-05-06 07:07:00 Test Item Value Reference Range Interpretation Comments Bili Total (test code = Bili Total) 0.4 0.2-1.3 [place] 789438-05-06 07:07:00 Test Item Value Reference Range Interpretation Comments Alk Phos (test code = Alk Phos) 71 39-136 [place] 789438-05-06 07:07:00 Test Item Value Reference Range Interpretation Comments AST (test code = AST) 15 See_Comment [Auto mated message] The system which ge nerated this result transmit lester reference range : <=37. The reference range was not used to interpr et this result as dany l/abnormal. [place] 789438-05-06 07:07:00 Test Item Value Reference Range Interpretation Comments ALT (test code = ALT) 28 See_Comment [Auto mated message] The system which ge nerated this result transmit lester reference range : <=65. The reference range was not used to interpr et this result as dany l/abnormal. [place] [address]-05-06 07:07:00 Test Item Value Reference Range Interpretation Comments Potassium Lvl (test code = Potassium 4.4 3.5-5.1 Lvl) [facility]2018-05-06 07:07:00 Test Item Value Reference Range Interpretation Comments Sodium Lvl (test code = Sodium Lvl) 147 135-145 [place] 789438-05-06 07:07:00 Test Item Value Reference Range Interpretation Comments CO2 (test code = CO2) 25 24-32 [place] 789438-05-06 07:07:00 Test Item Value Reference Range Interpretation Comments Chloride Lvl (test code = Chloride Lvl) 114 95-109 [facility]2018-05-06 07:07:00 Test Item Value Reference Range Interpretation Comments B/C Ratio (test code = B/C Ratio) 16 1 6-25 [place] 789438-05-06 07:07:00 Test Item Value Reference Range Interpretation Comments Calcium Lvl (test code = Calcium Lvl) 8.7 8.5-10.5 [facility]2018-05-06 07:07:00 Test Item Value Reference Range Interpretation Comments AGAP (test code = AGAP) 12.4 10.0-20.0 [facility]2018-05-06 07:07:00 Test Item Value Reference Range Interpretation Comments Total Protein (test code = Total 7.3 6.4-8.4 Protein) [facility] AustinIuvkugoBKMAPARVWR3407-57-19 07:07:00 Test Item Value Reference Range Interpretation Comments Platelet (test code = Platelet) 345 133-450 [facility] AustinVhfnlysDRKWGODATE6720-83-59 07:07:00 Test Item Value Reference Range Interpretation Comments MPV (test code = MPV) 8.7 7.4-10.4 [facility] AustinRmltyriJTRFIHWJDF1355-76-41 07:07:00 Test Item Value Reference Range Interpretation Comments WBC (test code = WBC) 6.9 3.7-10.4 [facility] AustinTitytssIOXZUVTUSL3866-65-83 07:07:00 Test Item Value Reference Range Interpretation Comments RBC (test code = RBC) 5.30 4.70-6.10 [place] 025548-05-06 07:07:00 Test Item Value Reference Range Interpretation Comments MCHC (test code = MCHC) 32.8 32.0-36.0 [facility] AustinCmfroycVZIUWUJJEI3744-72-35 07:07:00 Test Item Value Reference Range Interpretation Comments MCH (test code = MCH) 27.9 pg 27.0-31.0 [facility] AustinIshgkusFAYHSLXTXC0201-22-13 07:07:00 Test Item Value Reference Range Interpretation Comments Hgb (test code = Hgb) 14.8 14.0-18.0 [facility] AustinUqzslrvGXWZWHZBGQ1022-50-58 07:07:00 Test Item Value Reference Range Interpretation Comments MCV (test code = MCV) 85.0 80.0-94.0 [facility] AustinRpkjicpZQCTWKSNPP1836-62-77 07:07:00 Test Item Value Reference Range Interpretation Comments Hct (test code = Hct) 45.1 42.0-54.0 [facility] AustinImnmoqxRGPAPJFNXE6986-09-68 07:07:00 Test Item Value Reference Range Interpretation Comments RDW (test code = RDW) 17.5 11.5-14.5 [facility] AustinFrcwydfMEPKLZRYXN3920-70-49 07:07:00 Test Item Value Reference Range Interpretation Comments Eosinophils # (test code 0.2 See_Comment [A utomated message] The = Eosinophils #) system whic h generated this result tra nsmitted reference range : <=0.5. The reference r boubacar was not used to int erpret this result as normal/abnormal . [facility] AustinZcpdmlwMUYGKAXZFJ7592-29-06 07:07:00 Test Item Value Reference Range Interpretation Comments Lymphocytes # (test code = Lymphocytes 2.0 1.0-5.5 #) [facility] AustinUgyjfueQGZLJVQUPG9054-50-06 07:07:00 Test Item Value Reference Range Interpretation Comments Monocytes # (test code 0.7 See_Comment [Aut omated message] The = Monocytes #) system which generated this result tra nsmitted reference range : <=0.8. The reference r boubacar was not used to int erpret this result as normal/abnormal . [id number] 07:07:00 Test Item Value Reference Range Interpretation Comments Eosinophils (test code = 2.4 See_Comment [A utomated message] The Eosinophils) system which ge nerated this result tra nsmitted reference range : <=4.0. The reference r boubacar was not used to int erpret this result as normal/abnormal . [facility] [id number] 07:07:00 Test Item Value Reference Range Interpretation Comments Basophils (test code = 0.6 See_Comment [Aut omated message] The Basophils) system which ge nerated this result tra nsmitted reference range : <=1.0. The reference r boubacar was not used to int erpret this result as normal/abnormal . [facility] AustinXbiwkqfAZFFZNKEXB5501-59-09 07:07:00 Test Item Value Reference Range Interpretation Comments Segs-Bands # (test code = Segs-Bands #) 4.0 1.5-8.1 [facility] AustinStfsrfmFTGLVSDECN5381-41-20 07:07:00 Test Item Value Reference Range Interpretation Comments Monocytes (test code = Monocytes) 10.4 2.0-12.0 [facility] AustinYcesjenUFISNNWXKX2447-88-16 07:07:00 Test Item Value Reference Range Interpretation Comments RBC Morph (test code = Normal (11/17/17 2:07 AM) RBC Morph) [facility] AustinAvqvmvuKKRGWIVVTZ1561-23-36 07:07:00 Test Item Value Reference Range Interpretation Comments Segs (test code = Segs) 58.1 45.0-75.0 [facility] AustinKbklrlcOWQMWGTNUA4302-35-87 07:07:00 Test Item Value Reference Range Interpretation Comments Plt Morph (test code = Normal (11/17/17 2:07 AM) Plt Morph) [facility] AustinQwhedhmYDDTGZQFTN2144-10-77 07:07:00 Test Item Value Reference Range Interpretation Comments Lymphocytes (test code = Lymphocytes) 28.5 20.0-40.0 [facility] AustinWraasvdTCAHTRJEHQ4779-63-55 16:07:00 Test Item Value Reference Range Interpretation Comments Basophils # (test code 0.1 See_Comment [Aut omated message] The = Basophils #) system which generated this result tra nsmitted reference range : <=0.2. The reference r boubacar was not used to int erpret this result as normal/abnormal . [facility] AustinQmrfibzLQPGDQPOLA7961-50-97 16:07:00 Test Item Value Reference Range Interpretation Comments Polychrom (test code = Moderate *ABN*(11/16/17 Polychrom) 11:07 AM) [facility] 06:43:00 Test Item Value Reference Range Interpretation Comments Vanco Tr TND (test code = Vanco Tr TND) * [facility]vic[facility]dIVPHGSVZHL1221-30-70 06:43:00 Test Item Value Reference Range Interpretation Comments Vanco Tr (test code = Vanco Tr) 22.3 [facility]2018-05-04 11:45:00 Test Item Value Reference Range Interpretation Comments Magnesium Lvl (test code = Magnesium 2.3 1.8-2.4 Lvl) [facility]2018-05-04 11:45:00 Test Item Value Reference Range Interpretation Comments Phosphorus (test code = Phosphorus) 3.5 2.5-4.5 [facility] AustinFleftnvHCCIUQIZCM7845-44-83 11:45:00 Test Item Value Reference Range Interpretation Comments PT (test code = PT) 14.0 s 12.0-14.7 [facility] AustinVbemnvaVJTTSTYKEM5492-27-09 11:45:00 Test Item Value Reference Range Interpretation Comments PTT (test code = PTT) 37.6 s 22.9-35.8 [facility] AustinEatxctnRIBFUKDQAU9454-84-26 11:45:00 Test Item Value Reference Range Interpretation Comments INR (test code = INR) 1.08 1 0.85-1.[address] [facility] [place], [place]NbajxteSHKCCQJTOH7281-38-54 11:45:00 Test Item Value Reference Range Interpretation Comments C-REACTIVE PROTEIN (test code = 13.1 C-REACTIVE PROTEIN) [facility] [place], TXWvmoyptQGBGOOWOTX2432-79-73 11:45:00 Test Item Value Reference Range Interpretation Comments Prealbumin (test code = Prealbumin) 25.2 18.0-45.0 [facility]2018-05-04 03:06:00 Test Item Value Reference Range Interpretation Comments Lactic Acid Lvl (test code = Lactic 0.9 0.5-2.2 Acid Lvl) [facility] AustinZgxargkJVOSKECYXY4724-57-80 03:06:00 Test Item Value Reference Range Interpretation Comments Sed Rate (test code = 5 See_Comment [Auto mated message] The Sed Rate) system which ge nerated this result transmit lester reference range : <=15. The reference range was not used to interpr et this result as dany l/abnormal. [facility] [place], TXJvyswpfCUVGXNJZXS5059-85-42 03:06:00 Test Item Value Reference Range Interpretation Comments C-REACTIVE PROTEIN (test code = 15.8 C-REACTIVE PROTEIN) [facility] AustinEvbrgczZYHWDJFBUL9614-90-23 00:44:00 Test Item Value Reference Range Interpretation Comments PT (test code = PT) 13.0 s 12.0-14.7 [facility] AustinByuapmfLPBCSWNJIG7220-92-36 00:44:00 Test Item Value Reference Range Interpretation Comments INR (test code = INR) 0.98 1 0.85-1.17 [facility] AustinTpjasccZKZNZFCHQM4310-65-43 00:44:00 Test Item Value Reference Range Interpretation Comments PTT (test code = PTT) 33.2 s 22.9-35.8 [facility] [id number] 23:51:00 Test Item Value Reference Range Interpretation Comments Antibody Scrn (test Negative (11/14/17 6:51 code = Antibody Scrn) PM) [facility] [id number] 23:51:00 Test Item Value Reference Range Interpretation Comments ABO/Rh (test code = ABO/Rh) AB POS [facility] AND [id number] 23:35:00 Test Item Value Reference Range Interpretation Comments UA Urobilinogen (test code = UA 0.2 0.1-1.0 Urobilinogen) [facility] AND [id number] 23:35:00 Test Item Value Reference Range Interpretation Comments UA Nitrite (test code Negative (11/14/17 6:35 = UA Nitrite) PM) [facility] AND [id number] 23:35:00 Test Item Value Reference Range Interpretation Comments UA Glucose (test code Negative (11/14/17 6:35 = UA Glucose) PM) [facility] AND [id number] 23:35:00 Test Item Value Reference Range Interpretation Comments UA Ketones (test code Negative *NA*(11/14/17 = UA Ketones) 6:35 PM) [facility] AND [id number] 23:35:00 Test Item Value Reference Range Interpretation Comments UA Bili (test code = Negative *NA*(11/14/17 UA Bili) 6:35 PM) [facility] AND [id number] 23:35:00 Test Item Value Reference Range Interpretation Comments UA Blood (test code = Trace *ABN*(11/14/17 UA Blood) 6:35 PM) [facility] AND [id number] 23:35:00 Test Item Value Reference Range Interpretation Comments UA Leuk Est (test code Small *ABN*(11/14/17 6:35 = UA Leuk Est) PM) [facility] [id number] 23:35:00 Test Item Value Reference Range Interpretation Comments UA Spec Grav (test code = UA Spec 1.020 1 Grav) [facility] AND [id number] 23:35:00 Test Item Value Reference Range Interpretation Comments UA pH (test code = UA pH) 6.0 1 5.0-8.0 [facility] AND [id number] 23:35:00 Test Item Value Reference Range Interpretation Comments UA Color (test code = Yellow *NA*(11/14/17 6:35 UA Color) PM) [facility] AND [id number] 23:35:00 Test Item Value Reference Range Interpretation Comments UA Protein (test code = Trace *ABN*(11/14/17 UA Protein) 6:35 PM) [facility] AND [id number] 23:35:00 Test Item Value Reference Range Interpretation Comments UA Turbidity (test code Slight Cloudy (11/14/17 = UA Turbidity) 6:35 PM) [facility] AND [id number] 23:35:00 Test Item Value Reference Range Interpretation Comments UA Hyal Cast 0-2 (11/14/17 6:35 See_Comment [Automated message] (test code = UA PM) The system w [facility] Hyal Cast) generated this result transmitted ref erence range: <=2. The reference range was not used to int erpret this result as normal/abnormal . [facility] AND [id number] 23:35:00 Test Item Value Reference Range Interpretation Comments UA Bacteria (test code = UA Occasional /HPF Bacteria) [facility] AND [id number] 23:35:00 Test Item Value Reference Range Interpretation Comments UA RBC (test code 11-20 /HPF See_Comment [Automate d message] The = UA RBC) system which ge nerated this result tra nsmitted reference range : <=2. The reference range was not used to interpr et this result as normal/abnormal . [facility] AND [id number] 23:35:00 Test Item Value Reference Range Interpretation Comments UA Sq Epi (test code = UA Sq Occasional /LPF Epi) [facility] AND [id number] 23:35:00 Test Item Value Reference Range Interpretation Comments UA WBC (test code = UA WBC) 51-100 /HPF [id number] 23:20:00 Test Item Value Reference Range Interpretation Comments Basophils # (test code 0.1 See_Comment [Aut omated message] The = Basophils #) system which generated this result tra nsmitted reference range : <=0.2. The reference r boubacar was not used to int erpret this result as normal/abnormal . [facility] AustinLkzrnwxWNDAKGOSYG6750-97-77 23:20:00 Test Item Value Reference Range Interpretation Comments Polychrom (test code = Polychrom) Slight [facility] AustinShueokgLMTEWWDZJB1532-02-53 23:20:00 Test Item Value Reference Range Interpretation Comments Plt Morph (test code = Normal (11/14/17 6:20 PM) Plt Morph) [facility] [id number] 16:22:00 Test Item Value Reference Range Interpretation Comments CULTURE (BEAKER) (test No growth in 5 days code = 1095) BLOOD [id number] 16:22:00 Test Item Value Reference Range Interpretation [...] Normal 762) CBC W/PLT COUNT & AUTO [id number] 22:28:00 Test Item Value Reference Range Interpretation [...] 0.00-0.20 (test code = 417) 0.000.520.000.000.000.00BASI METABOLIC [id number] 11:11:00 Test Item Value Reference Range Interpretation [...] NOT APPLICABLE FOR DIALYSIS PATIEN TS. URINE [id number] 09:56:00 Test Item Value Reference Range Interpretation Comments CULTURE (BEAKER) (test <10,000 col/mL skin code = 1095) marilee COMPREHENSIVE METABOLIC [id number] 08:49:00 Test Item Value Reference Range Interpretation [...] PATIEN TS. CBC W/PLT COUNT & AUTO [id number] 08:46:00 Test Item Value Reference Range Interpretation [...] 0.00-0.20 (test code = 417) 0.00URINALYSIS W/ [id number] 20:36:00 Test Item Value Reference Range Interpretation [...] 520) 182 /HPF SOURCE(BEAKER) (test code = 4931) BASIC METABOLIC [id number] 17:00:00 Test Item Value Reference Range Interpretation [...] Specimen slightly ictericCBC W/PLT COUNT & AUTO [id number] 12:18:00 Test Item Value Reference Range Interpretation [...]
[2021-09-29] MEDS ORDERED: FAMOTIDINE 20 MG/2 ML VIAL IV ONE (21:09)
[2021-09-29] MEDS ORDERED: HYDROMORPHONE HCL 1 MG/ML INJ ONE (21:09)
[2021-09-29] MEDS ORDERED: PROMETHAZINE INJ 25 MG/ML AMP ONE (21:09)
--- NOTE | 2021-09-29 21:16 | RAD REPORT ---
EXAM DESCRIPTION: RAD - Shuntogram - 09/29/2021 9:00 pm CLINICAL HISTORY: headache Headache, drowsiness COMPARISON: Abdomen Pelvis W Contrast dated 09/25/2021 FINDINGS: Right-sided shunt tubing is noted. This traverses the chest and appears to enter the abdom en along its left aspect. No kink or break is seen in this shunt. Several additional old right-sided shunt tubes are noted.
--- NOTE | 2021-09-29 21:27 | RAD REPORT ---
EXAM DESCRIPTION: CT - Head Brain Wo Cont - 09/29/2021 9:14 pm CLINICAL HISTORY: HEADACHE Headache, drowsiness COMPARISON: Head Brain Wo Cont dated 07/21/2019; Head Brain Wo Cont dated 08/01/2018 TECHNIQUE: All CT scans are performed using dose optimization technique as appropriate and may inclu de automated exposure control or mA/KV adjustment according to patient size. FINDINGS: Two right-sided ventriculostomy tubes are noted, unchanged.No hydrocephalus is seen.No acu te hemorrhage or midline shift. The paranasal sinuses and mastoids are clear. The calvarium is intact. IMPRESSION: No acute intracranial abnormality.
--- NOTE | 2021-09-29 22:33 | EDPHYS ---
Physician Documentation [facility] Name: Roland Feldman Jr Age: 36 yrs Sex: Male : 1985 Arrival Date: 09/29/2021 Time: 18:33 Bed 13 Private MD: ED Physician Prince Warner HPI: 09/29 20:18 This 36 yrs old Black Male presents to ER via EMS with complaints of headache. kdr 20:18 The patient complains of pain to the forehead. The patient describes the headache as kdr aching, constant, a pressure. Onset: The symptoms/episode began/occurred 3 week(s) ago. Associated signs and symptoms: Pertinent positives: nausea, Pertinent negatives: altered mental status, fever, malaise, nausea, neck stiffness, paresthesias, Photophobia rash, sinus congestion, sinus tenderness, vision changes, vision loss, vomiting. Severity of symptoms: At its worst the pain was mild, moderate, just prior to arrival, in the emergency department the pain is unchanged. Headache History: The patient has had previous headaches and this one is similar to previous episodes. The symptoms are alleviated by nothing. the symptoms are aggravated by nothing. The patient has experienced similar episodes in the past, multiple times, chronically. The patient has been seen at [facility] and states he had a negative head CT yesterday. 20:23 Patient was last seen here on July 21 for a similar problem. kdr Historical: - Allergies: 18:44 Amoxicillin; ss7 18:44 Bactrim; ss7 18:44 Ciprofloxacin; ss7 18:44 CLAVULANIC ACID; ss7 18:44 Demerol; ss7 18:44 Doxycycline; ss7 18:44 Levofloxacin; ss7 18:44 Morphine; ss7 18:44 PENICILLINS; ss7 18:44 Toradol; ss7 18:44 TRIMETHOPRIM; ss7 18:44 Vancomycin; ss7 18:44 Zofran; ss7 - Home Meds: 18:44 Celexa 20 mg Oral tab 1 tab once daily [Active]; fentanyl 25 mcg/hr Topical pt72 1 ss7 patch every 72 hours [Active]; Pepcid 20 mg Oral tab 1 tab once daily [Active]; Percocet 10-325 mg Oral tab 1 tab every 6 hours [Active]; Reglan 10 mg Oral tab 1 tab once daily [Active]; Wellbutrin SR 150 mg Oral TbER 1 tab 2 times per day [Active]; - PMHx: 18:44 Asthma; Cerebral Palsy; cluster headaches; decubitus ulcers on feet; GERD; ss7 Hydrocephalus; Hypertension; spina bifida; - Immunization history:: Adult Immunizations up to date. - Social history:: Smoking status: Patient denies any tobacco usage or history of. ROS: 20:18 Constitutional: Negative for fever, chills, and weight loss, Eyes: Negative for injury, kdr pain, redness, and discharge, ENT: Negative for injury, pain, and discharge, Neck: Negative for injury, pain, and swelling, Cardiovascular: Negative for chest pain, palpitations, and edema, Respiratory: Negative for shortness of breath, cough, wheezing, and pleuritic chest pain, Abdomen/GI: Negative for abdominal pain, nausea, vomiting, diarrhea, and constipation, Back: Negative for injury and pain, : Negative for injury, bleeding, discharge, and swelling, MS/Extremity: Negative for injury and deformity, Skin: Negative for injury, rash, and discoloration, Psych: Negative for depression, anxiety, suicide ideation, homicidal ideation, and hallucinations, Allergy/Immunology: Negative for hives, rash, and allergies, Endocrine: Negative for neck swelling, polydipsia, polyuria, polyphagia, and marked weight changes, Hematologic/Lymphatic: Negative for swollen nodes, abnormal bleeding, and unusual bruising. 20:18 Neuro: Positive for headache, Negative for altered mental status, dizziness, gait disturbance, numbness, seizure activity, speech changes, syncope, near syncope, tingling, tinnitus, tremor, visual changes, weakness, acute changes. Exam: 20:18 Constitutional: This is a well developed, well nourished patient who is awake, alert, kdr and in no acute distress. Head/Face: Normocephalic, atraumatic. Eyes: Pupils equal round and reactive to light, extra-ocular motions intact. Lids and lashes normal. Conjunctiva and sclera are non-icteric and not injected. Cornea within normal limits. Periorbital areas with no swelling, redness, or edema. Neck: Trachea midline, no thyromegaly or masses palpated, and no cervical lymphadenopathy. Supple, full range of motion without nuchal rigidity, or vertebral point tenderness. No Meningismus. Chest/axilla: Normal chest wall appearance and motion. Nontender with no deformity. No lesions are appreciated. Cardiovascular: Regular rate and rhythm with a normal S1 and S2. No gallops, murmurs, or rubs. Normal PMI, no JVD. No pulse deficits. Respiratory: Lungs have equal breath sounds bilaterally, clear to auscultation and percussion. No rales, rhonchi or wheezes noted. No increased work of breathing, no retractions or nasal flaring. Abdomen/GI: Soft, non-tender, with normal bowel sounds. No distension or tympany. No guarding or rebound. No evidence of tenderness throughout. Back: No spinal tenderness. No costovertebral tenderness. Patient has a history of spina bifida and from his low back distally down his extremities, he has well-known and unchanged deformities of his pelvis and lower extremities. Patient has no complaints involving this aspect of his right Skin: Warm, dry with normal turgor. Normal color with no rashes, no lesions, and no evidence of cellulitis. Neuro: Awake and alert, GCS 15, oriented to person, place, time, and situation. Cranial nerves II-XII grossly intact. Motor strength 5/5 in all extremities. Sensory grossly intact. Cerebellar exam normal. Normal gait. Psych: Awake, alert, with orientation to person, place and time. Behavior, mood, and affect are within normal limits. Vital Signs: 18:40 BP 122 / 91; Pulse 107; Resp 20; Temp 98.3; Pulse Ox 95% ; Weight 127.46 kg; Height 4 ss7 ft. 11 in. (149.86 cm); 19:00 BP 125 / 81 LA Supine (auto/reg); Pulse 97 MON; Resp 18 S; Temp 98.1(O); Pulse Ox 92% tk1 on R/A; Pain 7/10; 20:00 BP 132 / 74 LA Supine (auto/reg); Pulse 96 MON; Resp 16 S; Pulse Ox 95% on R/A; Pain tk1 10/10; 21:00 BP 106 / 60 LA Supine (auto/reg); Pulse 91 MON; Resp 20; Pulse Ox 95% on R/A; Pain 4/10;tk1 22:00 BP 115 / 61 LA Supine (auto/reg); Pulse 92 MON; Resp 18 S; Pulse Ox 92% on R/A; Pain tk1 3/10; 22:20 Pain 2/10; tk1 18:40 Body Mass Index 56.75 (127.46 kg, 149.86 cm) ss7 MDM: 20:18 Data reviewed: vital signs, nurses notes, lab test result(s), radiologic studies. kdr Counseling: I had a detailed discussion with the patient and/or guardian regarding: the historical points, exam findings, and any diagnostic results supporting the discharge/admit diagnosis, lab results, radiology results, the need for outpatient follow up. 22:32 Patient medically screened. kdr 09/29 19:48 Order name: CT Head Brain wo Cont; Complete Time: 21:46 kdr 09/29 19:48 Order name: Shuntogram XRAY; Complete Time: 21:46 kdr Administered Medications: 21:35 Drug: Phenergan (promethazine) 25 mg Route: IVP; Rate: 6.25 mg/min; Infused Over: 4 tk1 mins; Site: right femoral; 22:20 Follow up: Response: Pain is decreased tk1 21:40 Drug: Dilaudid (HYDROmorphone) 1 mg Route: IVP; Rate: 0.5 mg/min; Infused Over: 2 mins; tk1 Site: right forearm; 22:20 Follow up: Pain 2/10; Response: Pain is decreased tk1 21:50 Drug: Pepcid (famotidine) 20 mg Route: IVP; Rate: 10 mg/min; Infused Over: 2 mins; tk1 Site: right forearm; 22:30 Follow up: Response: Pain is decreased tk1 Disposition Summary: 09/29/21 22:32 Discharge Ordered Location: Home kdr Problem: an acute exacerbation kdr Symptoms: have improved kdr Condition: Stable kdr Diagnosis - Headache kdr - [place] [employer]TER Shunt, cerebral palsy, recurrent headaches kdr Followup: kdr - With: Private Physician - When: 2 - 3 days - Reason: If symptoms return, Further diagnostic work-up, Recheck today's complaints, Continuance of care, Re-evaluation by your physician Discharge Instructions: - Discharge Summary Sheet kdr - General Headache Without Cause kdr Forms: - Medication Reconciliation Form kdr - Thank You Letter kdr - SBAR form mw2 Signatures: Dispatcher [employer] Prince Baldwin MD MD kdr Zahra Richmond tk1 Felicia Dupont, RN RN ss7
--- NOTE | 2021-09-29 22:33 | ER ---
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 ss7 Seen in [place] on yesterday and here on Saturday. Coronavirus screen: Vaccine status: Patient reports receiving the 2nd dose of the covid vaccine. Ebola Screen: No symptoms or risks identified at this time. Initial Sepsis Screen: Does the patient meet any 2 criteria? No. Patient's initial sepsis screen is negative. Does the patient have a suspected source of infection? No. Patient's initial sepsis screen is negative. Risk Assessment: Do you want to hurt yourself or someone else? Patient reports no desire to harm self or others. Onset of symptoms was September 29, 2021. 18:40 Method Of Arrival: EMS [facility] 18:40 Acuity: YUKI 3 ss7 Triage Assessment: 18:44 General: Appears in no apparent distress. comfortable, Behavior is calm, cooperative, ss7 appropriate for age. Pain: Complains of pain in head. EENT: No deficits noted. Neuro: Level of Consciousness is awake, alert, obeys commands, Oriented to person, place, time, situation, pmh of cerebral palsy. Cardiovascular: Heart tones S1 S2. Respiratory: Breath sounds are clear bilaterally. GI: No deficits noted. : No deficits noted. Derm: No deficits noted. Musculoskeletal: No deficits noted. Historical: - Allergies: 18:44 Amoxicillin; 7 18:44 Bactrim; 7 18:44 Ciprofloxacin; 7 18:44 CLAVULANIC ACID; 7 18:44 Demerol; 7 18:44 Doxycycline; 7 18:44 Levofloxacin; 7 18:44 Morphine; 7 18:44 PENICILLINS; ss7 18:44 Toradol; ss7 18:44 TRIMETHOPRIM; ss7 18:44 Vancomycin; ss7 18:44 Zofran; ss7 - Home Meds: 18:44 Celexa 20 mg Oral tab 1 tab once daily [Active]; fentanyl 25 mcg/hr Topical pt72 1 ss7 patch every 72 hours [Active]; Pepcid 20 mg Oral tab 1 tab once daily [Active]; Percocet 10-325 mg Oral tab 1 tab every 6 hours [Active]; Reglan 10 mg Oral tab 1 tab once daily [Active]; Wellbutrin SR 150 mg Oral TbER 1 tab 2 times per day [Active]; - PMHx: 18:44 Asthma; Cerebral Palsy; cluster headaches; decubitus ulcers on feet; GERD; ss7 Hydrocephalus; Hypertension; spina bifida; - Immunization history:: Adult Immunizations up to date. - Social history:: Smoking status: Patient denies any tobacco usage or history of. Screenin:47 Abuse screen: Denies threats or abuse. Nutritional screening: No deficits noted. ss7 Tuberculosis screening: No symptoms or risk factors identified. Fall Risk None identified. Assessment: 18:47 General: see triage. ss7 19:15 General: Appears comfortable, obese, well groomed, well developed, well nourished, tk1 Behavior is calm, cooperative, appropriate for age, Smells of urine. Pain: Complains of pain in head Pain does not radiate. Pain currently is 10 out of 10 on a pain scale. Quality of pain is described as aching, Pain began gradually, 2-3 days ago. Is continuous. Neuro: Level of Consciousness is awake, alert, obeys commands, Oriented to person, place, time, situation, Appropriate for age Chief Mechanical Officer are equal bilaterally. Cardiovascular: Capillary refill < 3 seconds is brisk in bilateral fingers. Respiratory: No deficits noted. Airway is patent Respiratory effort is even, unlabored, Respiratory pattern is regular, symmetrical. GI: No deficits noted. No signs and/or symptoms were reported involving the gastrointestinal system. : No deficits noted. No signs and/or symptoms were reported regarding the genitourinary system. EENT: No deficits noted. No signs and/or symptoms were reported regarding the EENT system. Derm: No deficits noted. No signs and/or symptoms reported regarding the dermatologic system. Musculoskeletal: to bilateral lower extremities. 20:30 Reassessment: No changes from previously documented assessment. Patient and/or family tk1 updated on plan of care and expected duration. Pain level reassessed. Patient is alert, oriented x 3, equal unlabored respirations, skin warm/dry/pink. Pain: Pain currently is 7 out of 10 on a pain scale. 22:44 Reassessment: D/C per MD order. Discharge instructions given to patient. Verbalized tk1 understanding. 23:18 Reassessment: EMS arrived for transport home. Patient request said nurse to clean his tk1 rosie area before he goes home. EMS awaiting cleansing in hallway. Patient with large formed, brown BM. Cleansed and redressed patient for transport home. Vital Signs: 18:40 BP 122 / 91; Pulse 107; Resp 20; Temp 98.3; Pulse Ox 95% ; Weight 127.46 kg; Height 4 ss7 ft. 11 in. (149.86 cm); 19:00 BP 125 / 81 LA Supine (auto/reg); Pulse 97 MON; Resp 18 S; Temp 98.1(O); Pulse Ox 92% tk1 on R/A; Pain 7/10; 20:00 BP 132 / 74 LA Supine (auto/reg); Pulse 96 MON; Resp 16 S; Pulse Ox 95% on R/A; Pain tk1 10/10; 21:00 BP 106 / 60 LA Supine (auto/reg); Pulse 91 MON; Resp 20; Pulse Ox 95% on R/A; Pain 4/10;tk1 22:00 BP 115 / 61 LA Supine (auto/reg); Pulse 92 MON; Resp 18 S; Pulse Ox 92% on R/A; Pain tk1 3/10; 22:20 Pain 2/10; tk1 18:40 Body Mass Index 56.75 (127.46 kg, 149.86 cm) 7 ED Course: 18:33 Patient arrived in ED. eb 18:40 Felicia Dupont, RN is Primary Nurse. ss7 18:44 Triage completed. ss7 18:44 Arm band placed on. ss7 18:47 Patient has correct armband on for positive identification. Bed in low position. Call [facility] light in reach. Side rails up X2. 18:47 No provider procedures requiring assistance completed. ss7 19:10 Prince Warner MD is Attending Physician. kdr 19:15 Pulse ox on. NIBP on. tk1 21:00 Shuntogram XRAY In Process Unspecified. EDMS 21:14 CT Head Brain wo Cont In Process Unspecified. EDMS 21:30 Inserted saline lock: 22 gauge in right forearm, using aseptic technique. Missed tk1 attempt(s): 22 gauge in left forearm. 22:44 IV discontinued, intact, bleeding controlled, No redness/swelling at site. Pressure tk1 dressing applied. Administered Medications: 21:35 Drug: Phenergan (promethazine) 25 mg Route: IVP; Rate: 6.25 mg/min; Infused Over: 4 tk1 mins; Site: right femoral; 22:20 Follow up: Response: Pain is decreased tk1 21:40 Drug: Dilaudid (HYDROmorphone) 1 mg Route: IVP; Rate: 0.5 mg/min; Infused Over: 2 mins; tk1 Site: right forearm; 22:20 Follow up: Pain 2/10; Response: Pain is decreased tk1 21:50 Drug: Pepcid (famotidine) 20 mg Route: IVP; Rate: 10 mg/min; Infused Over: 2 mins; tk1 Site: right forearm; 22:30 Follow up: Response: Pain is decreased tk1 Outcome: 22:32 Discharge ordered by . kdr 22:49 Discharged to home via ambulance. tk1 22:49 Condition: stable 22:49 Discharge instructions given to patient, Instructed on discharge instructions, follow up and referral plans. Demonstrated understanding of instructions, follow-up care. 23:20 Patient left the ED. tk1 Signatures: Dispatcher [employer] EDMS Prince Warner MD MD kdr Botello, Elizabeth eb Kirby, Tammie tk1 Felicia Dupont RN RN ss7 Corrections: (The following items were deleted from the chart) 21:53 21:49 Inserted saline lock: 22 gauge in right forearm, using aseptic technique. Missed tk1 attempt(s): 22 gauge in left forearm. tk1
[2021-09-30 00:47] VITALS: TEMP 98.1
[2021-09-30 00:51] VITALS: BP 115/61; O2SAT 92
== END 2021-09-29 23:20 | disposition home or self-care (01) ==
LOC: ER 18:12
DX: R51.9 Headache, unspecified (principal); Z98.2 Presence of cerebrospinal fluid drainage device; I10 Essential (primary) hypertension; K21.9 Gastro-esophageal reflux disease without esophagitis; Z88.0 Allergy status to penicillin; Z88.1 Allergy status to other antibiotic agents; Z88.3 Allergy status to other anti-infective agents; Z88.5 Allergy status to narcotic agent; Z88.8 Allergy status to other drugs, medicaments and biological substances
CPT/HCPCS: 70450; 75809; 49427; 99284; J2550; J1170

== ENCOUNTER 2021-10-05 19:16 | Emergency (ER) | payer OTHER ==
--- OUTSIDE RECORDS SUMMARY | 2021-10-05 19:24 | XMS REPORT | Continuity of Care Document ---
:[address] [facility] t Address [facility] [place] [address] Care Team Providers Name Role Phone Sussy MARC Primary Care Physician Unavailable Nichole Attending Clinician Unavailable CICI YANEZ Attending Clinician Unavailable Cici Lam Attending Clinician Duane GARCIA Attending Clinician Christ SERNA Attending Clinician Unavailable Christ Serna MD Attending Clinician Ellie NUNO Attending Clinician Kb BALDERRAMA Attending Clinician Unavailable Kb Lopez Attending Clinician Hi FONSECA Attending Clinician Unavailable Hi Fonseca NP Attending Clinician Only, Db Test Attending Clinician Unavailable Toño NUNO Attending Clinician TOÑO Attending Clinician Unavailable HOOK Attending Clinician Unavailable Hook DO Attending Clinician Analia ROMO, F Attending Clinician Csasandra SAUNDERS Attending Clinician Unavailable MITCHELL Attending Clinician Unavailable LAMAR GENAO Attending Clinician Unavailable CICI YANEZ Admitting Clinician Unavailable ELLIE Admitting Clinician Unavailable Ellie NUNO Admitting Clinician JAMAL Kb Admitting Clinician Unavailable Hi FONSECA Admitting Clinician Unavailable ALEX Admitting Clinician Unavailable LAMAR GENAO Admitting Clinician Unavailable Payers Payer Name Policy Type Policy Number Effective Date Expiration Date Christ [facility]awson [facility] [id number] 2020 00:00:00 Advance Directives Directive Decision Effective Termination Comments Source Date Date Healthcare Agents on N/A [facility] FileNameRelationship[facility] Agent Medical RelationshipCommunicationCritical access hospital Care [phone] (Mobile) Problems Condition Condition Condition Status Onset Resolution Last Treating Co mments Source Name Details Category Date Date Treatment Clinician Date Complicate Complicate Disease Active U nivers d urinary d urinary 1-20 ity of tract tract 00:00: [place] infection infection 00 [facility] Hyperglyce Hyperglyce Disease Active [facility] without without 00:00: Medical ketosis ketosis 00 Center HEADACHE Diagnosis Active 2017-072017-11-20 M emoria 08 09:20:00 l HEADACHE 00:00: Christian n 00 Active [facility] SHUNT Diagnosis Active 2017-11-14 Mem oria MALFUNCTIO 11-14 20:00:00 l N SHUNT 00:00: [place] MALFUNCTIO 00 N Active 11/14/2017 [facility] ACUTE Diagnosis Active 2017-11-20 Mem oria HEADACHE - 09:20:00 l ACUTE 00:00: Jason HEADACHE 00 Active 11/14/2017 [facility] Spina Spina Disease Active [facility] bif[facility] bifida 12-24 [facility] - 00:00: Medical 00 [place] Pyelonephr Pyelonephr Disease Active [facility] itis itis 6 [facility] - 00:[facility]: Medical 00 [place] Morbid Morbid Disease Active Univers obesity obesity [...] Kristen nn d bifida, unspecifie d 12/09/2018 [facility] Nausea Problem 2018-12-09 Memor ia with 14:14:02 l vomiting, Nausea Kristen nn unspecifie with d vomiting, unspecifie d 12/09/2018 [facility] Diplopia Problem 2018-12-09 Mem oria 14:14:02 l Diplopia Christian n 12/09/2018 [facility] 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, 14:14:02 l unspecifie Cerebral He rmann d palsy, unspecifie d 12/09/2018 [facility] 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-09 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:14:02 l other Acquired Christian n specified absence of parts of other digestive specified tract parts of digestive tract 12/09/2018 [facility] Nicotine Problem 2018-12-09 Mem oria dependence 14:14:02 l , Nicotine Christian n cigarettes dependence , , uncomplica cigarettes lester , uncomplica lester 12/09/2018 [facility] Presence Problem 2018-12-09 Mem oria of 14:14:02 l cerebrospi Presence He rmann nal fluid of drainage cerebrospi device nal fluid drainage device 12/09/2018 [facility] Allergy Problem 2018-12-09 Erwin benjamin status to 14:14:02 l other Allergy Jason antibiotic status to agents other status antibiotic agents status 12/09/2018 [facility] Allergy Problem 2018-12-09 Erwin benjamin status to 14:14:02 l other Allergy [place] drugs, status to medicament other s and drugs, biological medicament substances s and status biological substances status 12/09/2018 [facility] Allergy Problem 2018-12-09 Erwin benjamin status to 14:14:02 l narcotic Allergy Kristen nn agent status to status narcotic agent status 12/09/2018 [facility] Asthma Problem Resolve 2019-03-06 Erwin benjamin (disorder) d 01:05:55 l Asthma Jason (disorder) Resolved Problem 03/06/2019 [facility] Bronchitis Problem Resolve 2019-03-06 Memoria (disorder) d 01:05:55 l Jason Bronchitis (disorder) Resolved Problem [facility]2019 [facility] [...] 2019-03-06 M emoria (finding) 01:05:55 l Acute [place] pain (finding) Active Problem 03/06/2019 [facility] Headache Problem Active 2019-03-06 Mem oria (finding) 01:05:55 l Headache Christian n (finding) Active Problem 03/06/2019 [facility] History of Past Illness Condition Condition Condition Status Onset Resolution Last Treating Co mments Source Name Details Category Date Date Treatment Clinician Date Headache Problem 2017-072018-12-09 2018-12-09 Memoria -08 14:14:02 14:14:02 l Headache 06:00: Christian n 00 05/22/2018 12/09/2018 [facility] Allergies, Adverse Reactions, Alerts Allergy [...] Center s SULFAMET Allergy Active High Hives 2017-0 [...] 00 Center s ONDANSET Allergy Active N\\T\\V 2017- [facility] KUMAR HCL 6-11 [facility] - (PF) 00:00: Medical 00 Center Sesame Propensi Active Hives 2017-[address] [facility] [address] Seed ty to 6-11 [facility] - adverse 00:00: Medical reaction 00 Center s Ketorola Propensi Active Rash 2017-[address] [facility] [facility] ty to 6-11 [facility] - adverse 00:00: Medical reaction 00 Center s Vancomyc Propensi Active Rash 2017-[address] [facility] in ty to 6-11 [facility] [...] See U nivers in ty to comments 1- ity of adverse 00:00: [place] reaction 00 Medical s Branch SULFA Drug Active Other-Cmnt Univer s (SULFONA Class 1-04 ity of MIDE 00:00: [place] ANTIBIOT 00 Medical ICS) Branch SULFAMET DRUG Active Other-Cmnt Univ ers HOPRIM 1 ity of DS 00:00: [place] 00 Medical Branch VANCOMYC DRUG Active Other-Cmnt Univ ers IN INGREDI 1- ity of 00:00: [place] 00 Medical Branch [...] INGREDI 5-23 ity of 00:00: [place] 00 [facility] KETOROLA DRUG Active N/V Univers C INGREDI 12-04 ity of TROMETHA 00:00: [facility] Morphine Adverse Active Info Not [facility] [...] l Jason Zofran Zofran Active Memoria l [place] Levaquin Levaquin Active Memori a l Jason Bactrim Bactrim Active Memoria l [place] amoxicil amoxicil Active Memori [place] morphine morphine Active Memori a l [place] Toradol Toradol Active Memoria l Jason Social History Social Habit Start Date Stop Date Quantity Comments Source History of tobacco Cigarette Smoker [facility] - use [facility] Exposure to Not sure [facility] SARS-CoV-2 (event) [facility] Alcohol intake 2021-08-04 2021-08-04 0 /d University 00:00:00 [facility]00 [facility] Cigarettes smoked 2016-12-25 2016-12-25 [facility] - current (pack per 00:00:00 00:00:00 [facility] ) - Reported Tobacco use and 2016-07-18 2016-07-18 Never used Universit y of exposure 00:00:00 [facility] Sex Ass[birth year] At [birth year] [facility] y of 00:00:00 00:[facility]:00 [facility] Smoking Status Start Date Stop Date Source Current every day smoker 2016-07-18 00:00:00 Uni [facility] Medications Ordered Filled Start Stop Current Ordering Indication Dosage Frequency Signature Comments Components Source Medication Medication Date Date Medication? Clinician (SIG) Name Name feliciano- 2021- No 2{tbl} 2 tablet, Univers acetaminoph 09-29 Oral, ity of en-caff 03:45: 03:10 ONCE, 1 [place] (ESGIC) 00 :00 dose, On Medical 50-325-40 [...] magnesium 2021- No 2g 2 g, IV Univ ers sulfate in 09-29 Piggyback, it y [...] by (Faculty): ADC PROVIDER levoFLOXaci 2021- Yes [id number] 750mg Take 1 Univers n 750 mg 08-09 tablet by ity o f tablet 00:00: 05:59 mouth [place] 00 :00 daily for Medical 4 days. Branch levoFLOXaci 2021- Yes [id number] 750mg Take 1 Univers n 750 mg 08-09 tablet by ity o f tablet 00:00: 05:59 mouth [place] 00 :00 daily for Medical 4 days. Branch OXYCODONE Yes Take by [facility] ers HCL/ACETAMI 1-25 mouth. ity of NOPHEN 19:49: [place] (PERCOCET 27 Medical ORAL) Branch OXYCODONE Yes Take by [facility] ers HCL/ACETAMI 1-25 mouth. ity of NOPHEN 19:49: [place] (PERCOCET 27 Medical ORAL) [place] OXYCODONE Yes Take by [facility] ers HCL/ACETAMI -25 mouth. ity of NOPHEN 19:49: [place] (PERCOCET 27 Medical ORAL) [place] vancomycin 2021- Yes 125mg 125 mg, Un [...] Yes 750mg 750 mg, Un ela n -25 Oral, ity of (LEVAQUIN) 15:00: DAILY, [place] tablet 750 00 First dose Med ical mg (after Branch last modificati on) on Sat08/08/21 at 0900, Until Discontinu ed, SAHARA
Re ason for Anti-Infec tive: Empiric Therapy for Suspected Infection< br>Empiric Therapy Site: Urine
D uration of therapy: 72 hours lactobacill 2021- Yes [id number] .5mg Take 1 Univers us 08-08-25 tablet by ity of acidophilus 00:00: 05:59 mouth 2 [place] 00 :00 (two) Medical times Branch daily for 30 days. lactobacill 2021- Yes [id number] .5mg Take 1 Univers us -08 09-25 tablet by ity of acidophilus 00:00: 05:59 mouth 2 [place] 00 :00 (two) Medical times Branch daily for 30 days. vancomycin 2021- Yes [id number] 125mg Take 1 Univers 125 mg 08-08 capsule by ity of capsule 00:00: 05:59 mouth 4 [place] 00 :00 (four) Medical times Branch daily for 5 days. vancomycin 2021- Yes [id number] 125mg Take 1 Univers 125 mg 08-08 capsule by ity of capsule 00:00: 05:59 mouth 4 [place] 00 :00 (four) Medical times Branch daily for 5 days. traMADoL Yes 50mg 50 mg, Univers (ULTRAM) 08-07 Oral, ity of tablet 50 21:26: Q6HPRN, [place] mg 10 Starting Medical on Mon Branch 08/07/21 at 1526, Until Discontinu ed, Routine, Pain (scale 4-6) levoFLOXaci 2021- No 250mg 250 mg, U nivers n 08-07 Oral, Q24H ity of (LEVAQUIN) 19:30: 23:18 ABX, First [place] tablet 250 00 :17 dose Medical mg [...] 08-06 Oral, ity of n 20:39: Q6HPRN, [place] (PERCOCET) 03 Starting Medic al 5-325 mg [...] of 1,000 mg in 15:45: 18:30 Piggyback, [place] NaCl 0.9% 00 :00 Q24H ABX, Medic al (NS) 50 mL First dose Bra [facility] MINI-BAG on 08/05/21 at 0945, Until Discontinu [...] 08/04/21 at 2000, Until Discontinu ed, SAHARA
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
U se approved by (Faculty): ADC PROVIDER proCHLORper 0 Yes 10mg 10 mg, Univ ers azine 1-20 Slow IV ity of (COMPAZINE) 09:07: Push, [place] injection 27 Q6HPRN, Medical 10 mg Starting Branch on Libra 08/03/21 at 0307, Until Discontinu ed, Routine, Nausea and Vomiting (N/V) acetaminoph 0 Yes 650mg 650 mg, Un ela en 1-20 Oral, ity of (TYLENOL) 09:07: Q6HPRN, [place] tablet 650 10 Starting Medic al mg on Libra Branch 08/03/21 at 0307, Until Discontinu ed, Routine, Pain (scale 1-3) meropenem 2021- No 1g 1 g, IV Univ ers (MERREM) 1 08-03 Piggyback, it y of g in NaCl 07:15: 08:49 ONCE, 1 [place] 0.9% (NS) 00 :00 dose, On Medica l 100 mL Libra Branch MINI-BAG 08/03/21 at 0115, Administer over 60 Minutes, 100 mL
Rest ricted use approved by: ADC PROVIDER<b r>Reason for Anti-Infec tive: Documented Infection< br>Documen lester Infection Site: Urine
D uration of Therapy: Other (see Comments) cefdinir 2021- No 300mg 300 mg, Univ ers (OMNICEF) 08-01 Oral, ity of capsule 300 03:30: 02:55 ONCE, 1 [place] mg 00 :00 dose, On Medical [facility] Branch 07/31/21 at 2130, SAHARA
Re ason [...] piggyback 1915, 50 mL cefdinir 2021- Yes [id number] 300mg Take 1 U nivers 300 mg 07-31 capsule by ity of capsule 00:00: 05:59 mouth [place] 00 :00 every 12 Medical (twelve) Branch hours for 10 days. cefdinir 2021- No [id number] 300mg Take 1 U nivers 300 mg [...] 07/29/21 at 1645, Routine methocarbam 2021-0 Yes [id number] 1000mg Take 2 Univers oL 500 mg 1-15 tablets by ity of tablet 00:00: mouth 4 00 (four) Medical times Branch daily as needed for Pain (scale 1-3). methocarbam 2021-0 Yes [id number] 1000mg Take 2 Univers oL 500 mg 1-15 tablets by ity of tablet 00:00: mouth 4 [place] 00 (four) Medical times Branch daily as needed for Pain (scale 1-3). methocarbam 0 Yes [id number] 1000mg Take 2 Univers oL 500 mg 1-15 tablets by ity of tablet 00:00: mouth 4 (four) Medical times Branch daily as needed for Pain (scale 1-3). methocarbam 0 Yes [id number] 1000mg Take 2 Univers oL 500 mg 1-15 tablets by ity of tablet 00:00: mouth 4 00 (four) Medical times Branch daily as needed for Pain (scale 1-3). methocarbam 0 Yes [id number] 1000mg Take 2 Univers oL 500 mg 1-15 tablets by ity of tablet 00:00: mouth 4 (four) Medical times Branch daily as needed for Pain (scale 1-3). proMETHazin 2020-07 No 25mg 25 mg, IV Univers e 1-24 06-07 Piggyback, ity of (PHENERGAN) 23:15: 22:20 [...] 06/07/21 at 1615, Routine fidaxomicin 2020-07 Yes [id number] 200mg Take 1 Univers 200 mg 1-24 tablet by ity of tablet 00:00: mouth 2 (two) Medical times Branch daily. proMETHazin 2020-07 Yes [id number] 25mg Take 1 Univers e 25 mg 1-24 tablet by ity of tablet 00:00: mouth 00 every 6 Medical (six) Branch hours as needed for Nausea and Vomiting (N/V). fidaxomicin 2020-07 Yes [id number] 200mg Take 1 Univers 200 mg 1-24 tablet by ity of tablet 00:00: mouth 2 00 (two) Medical times Branch daily. proMETHazin 2020-07 Yes [id number] 25mg Take 1 Univers e 25 mg 1-24 tablet by ity of tablet 00:00: mouth [place] 00 every 6 Medical (six) Branch hours as needed for Nausea and Vomiting (N/V). cholestyram 2020-07 Yes Univer s ine 4 gram 1-24 ity of packet 00:00: [place] Medical Branch fidaxomicin 2020-07 Yes [id number] 200mg Take 1 Univers 200 mg 1-24 tablet by ity of tablet 00:00: mouth 2 [place] 00 (two) Medical times Branch daily. proMETHazin 2020-07 Yes [id number] 25mg Take 1 Univers e 25 mg 1-24 tablet by ity of tablet 00:00: mouth [place] 00 every 6 Medical (six) Branch hours as needed for Nausea and Vomiting (N/V). cholestyram 2020-07 Yes Univer s ine 4 gram 1-24 ity of packet 00:00: [place] Medical Branch cholestyram 2020-07 Yes Univer s ine 4 gram 1-24 ity of packet 00:00: [place] Medical Branch cholestyram 2020-07 Yes Univer s ine 4 gram 1-24 ity of packet 00:00: [place] Medical [facility] cholestyram 2020-07 Yes Univer s ine 4 gram 1-24 ity of packet 00:00: [place] Medical Branch fidaxomicin 2020-07 Yes [id number] 200mg Take 1 Univers 200 mg 1-24 tablet by ity of tablet 00:00: mouth 2 [place] (two) Medical times Branch daily. proMETHazin 2020-07 Yes [id number] 25mg Take 1 Univers e 25 mg 1-24 tablet by ity of tablet 00:00: mouth [place] 00 every 6 Medical (six) Branch hours as needed for Nausea and Vomiting (N/V). fidaxomicin 2020-07- No [id number] 200mg Take 1 Univers 200 mg 1-24 01-25 tablet by ity of tablet 00:00: 00:00 mouth 2 [place] 00 :00 (two) Medical times Branch daily. proMETHazin 2020-07- No [id number] 25mg Take 1 Univers e 25 mg [...] of 1,000 mg in 02:30: 01:55 Piggyback, [place] NaCl 0.9% 00 :00 ONCE, 1 Medical (NS) 50 mL dose, [facility] ch MINI-BAG 11/20/20 at 2130, 50 mL
Reas on for Anti-Infec tive: Documented Infection< br>Documen lester Infection Site: Urine
D uration of Therapy: 7 days famotidine 2020- No 20mg 20 mg, Univ ers (PEPCID 5-10 05-10 Slow IV ity of (PF)) 01:00: 00:12 Push, [place] injection 00 :00 ONCE, 1 Medical 20 mg dose, [facility] 11/20/20 at 2000, SAHARA proMETHazin 2020- No 25mg 25 mg, IV Univers e 5- 05-10 Piggyback, ity of (PHENERGAN) 00:45: 00:11 ONCE[place] 1 [place] 25 mg in 00 :00 dose, [place] Medica l NaCl 0.9% 11/20/20 at [facility] h (NS) 50 mL 1945, [...] 1,000 mL 00 :00 IV Medical Infusion, [place] ONCE, 1 dose, [place] 5/9/21 at 1900, SAHARA cefdinir 2020- No [id number] 300mg Take 1 U nivers 300 mg [...] No 1,000 mL, Memori a saline 0.9% 1 Rate: 100 l IV 1,000 mL 11:04: ml/hr, Herm carly Infuse over: 10 hr, Route: IV, Dosing Weight 131.818 kg, Total Volume: 1,000, Start date: 05/22/18 5:04:00 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, Duration: 30 day, Stop date: 06/21/18 5:03:00 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, 2.4, m2 Magnesium 2017-07 No Notes: Memori a Sulfate 07-22 WASTE: F/P l 10:36: - Sink; E Jason - Municipal Trash Bin Isolyte S 2017-07 No Notes: Memori a PH-7.4 07-22 (Same as: l (Bolus) IV 10:36: Isolyte S He rmann PH 7.4) Phenergan 2017-07 No 12.5 mg, Erwin benjamin 08 0.5 mL, l 10:35: Route: [place] IVPB, Drug form: INJ, ONCE, Dosing Weight 131.818, kg, Priority: STAT, Start date: 05/22/18 4:35:00 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, Stop 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: 05/22/18 4:35:00 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 Citalopram Citalopram Yes Na Gamble [address] Hydrobromid Hydrobromid 7-16 L ukes - e e 00:00: Memoria 00 [facility] Seroquel Seroquel Yes Na Gamble [address] 7-16 [facility] - 00:00: Memoria 00 l [facility] Docusate Yes 100 mg = 1 Mem oria Sodium 100 5-08 cap, PO, l MG Oral 14:56: BID, 0 [place] Capsule 00 Refill(s) Zosyn Yes 0 Memoria 5-08 Refill(s) l 14:56: [place] 00 celecoxib Yes 200 mg = 1 [...] tab, PO, l tablet 14:56: Q8H, PRN [place] 00 Anxiety, 0 Refill(s) Lidocaine Yes 3 patch, Erwin benjamin Hydrochlori 5-08 TOP, l de 0.05 14:56: Daily, [place] MG/MG 00 Remove Transdermal after 12 Patch hours, 0 [Lidoderm] Refill(s) Robaxin No Notes: Memoria 5-06 (Same l 21:00: as:Robaxin [place] ) Oxycodone No Notes: Memori a Hydrochlori 5-06 (Same as: l de 5 MG 18:06: Roxicodone Herm carly Oral Tablet 00 ) Ativan No Notes: Memoria 5-06 (Same as: l 15:18: Ativan) [place] 00 Trazodone No Notes: Memori a Hydrochlori 5-06 (Same As: l de 50 MG 02:00: Desyrel) Kristen nn Oral Tablet 00 remove No Notes: Memoria patch -06 Remove l 02:00: patch 12 Jason 00 [...] moria 5-05 infuse l 21:00: over 2.5 [place] 00 hours Lidocaine No Notes: Memori a [...] 5-04 not give l 22:40: IV push. [place] 00 (Same as: Phenergan) Dilaudid No Notes: Memoria 5-04 Same as l 22:40: Dilaudid [place] 00 Tramadol No Notes: Not Mem oria 5-04 to exceed l 22:00: 400mg/day. Jason 00 (Same As: Ultram) gabapentin No Notes: Memor ia -04 (Same as: l 22:00: Neurontin) [place] 00 Acetaminoph No Notes: Max Memoria en 5-04 acetaminop l 22:00: hen 4000 Jason 00 mg/day (4 gm/day). (Same as: Tylenol Extra Strength) Robaxin No Notes: Memoria 5-04 (Same l 22:00: as:Robaxin [place] 00 ) Oxycodone No Notes: Memori a [...] 11/15/17 10:43:00 CDT Docusate No Notes: Memoria 5- (Same as: l 14:00: Colace) (Do Not [...] ia -04 (Same as: l 07:00: Lovenox) [place] 00 Sodium No 1,000 mL, Memori a Chloride 11-15 Rate: 125 l 0.9% IV 06:46: ml/hr, [place] 1,000 mL 00 Infuse over: 8 hr, Route: IV, Dosing Weight 127.27 kg, Total Volume: 1,000, Start date: 11/15/17 1:46:00 CDT, Duration: 30 day, Stop date: 12/15/17 1:45:00 CDT, 2.44, m2 Saline No Notes: Memoria Flush 0.9% 11-15 (Same as: l 06:46: BD [place] Posiflush) Acetaminoph No Notes: Do M emoria en -04 not exceed l 06:46: 4 gm/day. Jason (Same as: Tylenol) Acetaminoph No Notes: Erwin benjamin en 325 MG / - (Same as: l Hydrocodone 06:46: [place] Kristen nn Bitartrate 00 325/5) Do 5 MG Oral not exceed Tablet 4gm/day of acetaminop hen. Reglan No Notes: Memoria 5-04 (Same as: l 04:27: Reglan) [place] 00 Benadryl No Notes: Memoria 5-04 (Same as: l 04:27: Benadryl) Jason Magnesium No Notes: Memori a Sulfate 11-15 WASTE: F/P l 04:26: - Sink; E Jason - Municipal Trash Bin Sodium No 1,000 mL, Memori a Chloride -04 1000 l 0.9% 04:26: ml/hr, Jason (Bolus) IV 00 Infuse Over: 1 hr, Route: IV, 1,000, Drug form: INJ, ONCE, Priority: STAT, Dosing Weight 127.273 kg, Start date: 11/14/17 23:26:00 CDT, Stop date: 11/14/17 23:26:00 CDT Zosyn No 4.5 gm, Memoria 11-15 Route: l 04:10: IVPB, [place] ONCE, Dosing Weight 127.273, kg, Priority: STAT, Start date: 11/14/17 23:10:00 CDT, Stop date: 11/14/17 23:10:00 CDT, ABX Indication : Bacteremia Vancomycin No 2000 mg: Me moria 11-15 infuse l 04:10: over 2.5 [place] 00 hours For adult patients only: Round [...] en 11-15 acetaminop l 02:56: hen 4000 [place] 00 mg/day (4 gm/day). (Same as: Tylenol [...] Memoria 11-14 (Same as: l 23:14: Benadryl) [place] Benadryl 2018-0 No Notes: Memoria 5-03 (Same as: l 22:56: Benadryl) Morphine 2018-0 No 4 mg, 1 Memori a 5-03 mL, Route: l 22:56: IVP, Drug form: SOLN, ONCE, Dosing Weight 127.273, kg, Priority: STAT, Start date: 11/14/17 17:56:00 CDT, Stop date: 11/14/17 17:56:00 CDT OXYCODONE 2016-07 Yes Take by Univ ers HCL/ACETAMI 2-20 mouth. ity of NOPHEN 10:03: [place] (PERCOCET 17 Medical ORAL) [place] OXYCODONE 2016-07 Yes Take by Univ ers HCL/ACETAMI 2-20 mouth. ity of NOPHEN 04:03: [place] (PERCOCET 17 Medical ORAL) [place] OXYCODONE 2016-07 Yes Take by Univ ers HCL/ACETAMI 2-20 mouth. ity of NOPHEN 04:03: [place] (PERCOCET 17 Medical ORAL) [place] OXYCODONE 2016-07 Yes Take by Univ ers HCL/ACETAMI 2-20 mouth. ity of NOPHEN 04:03: [place] (PERCOCET 17 Medical ORAL) [place] OXYCODONE 2016-07 Yes Take by Univ ers HCL/ACETAMI 2-20 mouth. ity of NOPHEN 04:03: [place] (PERCOCET 17 Medical ORAL) [place] dicyclomine 2016-07 Yes 20mg Take 1 Univ [...] (N/V) for up to 12 doses. proMETHazin 2016-0 Yes 25mg Take 1 Univ [...] (N/V) for up to 12 doses. proMETHazin 2016-0 Yes 25mg Take 1 Univ ers e 25 mg 1-04 tablet by ity of tablet 00:00: mouth [place] 00 every 6 Medical (six) Branch hours as needed for Nausea and Vomiting (N/V) for up to 12 doses. Tylenol Tylenol Yes Na Gamble [address] with with as needed [facility] - Codeine #4 Codeine #4 [facility] Macrobid Macrobid Yes Na Gamble [address] with food [facility] Pantoprazol Pantoprazol Yes Na Gamble [address] e Sodium e Sodium [facility] Collagenase Collagenase Yes Na Gamble [address] [facility] applicatio [facility] n to Memoria affected l area [facility] Vital Signs Vital Name Observation Time Observation Value Comments Source Systolic blood 2021-09-29 03:18:00 113 mm[facility]Hg[facility] Diastolic blood 2021-09-29 03:18:00 85 mm[Hg] [facility] 2021-09-29 03:18:00 96 /min [facility] Respiratory rate 2021-09-29 03:18:00 18 /min Univ ersity [facility] [place] [facility] Oxygen saturation in 2021-09-29 03:18:00 93 /min University of Arterial blood by [facility] efrain Pulse oximetry Branch Body temperature 2021-09-29 01:01:16 36.89 Abi Univ [facility] [place] [facility] Body weight 2021-09-28 23:13:00 127.461 kg [facility] [place] [facility] BMI 2021-09-28 23:13:00 56.76 kg/m2 [facility] [place] [facility] Systolic blood 2021-08-08 21:53:00 142 mm[Hg] Univer sity of pressure [place] [facility] Diastolic blood 2021-08-08 21:53:00 88 mm[Hg] Unive rsity of pressure [place] [facility] Heart rate 2021-08-08 21:53:00 96 /min [facility] [place] [facility] Body temperature 2021-08-08 21:53:00 36.06 Abi Univ [facility] [place] [facility] Respiratory rate 2021-08-08 21:53:00 18 /min Univ ers[facility] [place] [facility] Oxygen saturation in 2021-08-08 21:53:00 96 /min University of Arterial blood by [facility] efrain Pulse oximetry Branch Body weight 2021-08-08 09:48:00 138.801 kg [facility] BMI 2021-08-08 09:48:00 61.80 kg/m2 [facility] Body height 2021-08-03 10:27:00 149.9 cm [facility] Systolic blood 2021-08-01 03:50:00 142 mm[Hg] [facility] Diastolic blood 2021-08-01 03:50:00 95 mm[Hg] [facility] Heart rate 2021-08-01 03:50:00 93 /min [facility] Respiratory rate 2021-08-01 03:50:00 17 /min [facility] Oxygen saturation in 2021-08-01 03:50:00 98 /min [facility] Arterial blood by [facility] efrain Pulse oximetry Branch Body temperature 2021-07-31 20:39:00 36.5 Abi [facility] Body weight 2021-07-31 20:39:00 136.079 [...] 96 /min [facility] Arterial blood by [place] [employer]rain Pulse oximetry Branch Body temperature 2021-07-29 20:52:00 36.67 Abi [facility] Body weight 2021-07-29 20:52:00 136.079 kg [facility] BMI 2021-07-29 20:52:00 60.59 kg/m2 [facility] Systolic blood 2021-06-07 23:30:00 175 mm[Hg] [facility] Diastolic blood 2021-06-07 23:30:00 107 mm[Hg] [facility] Heart rate 2021-06-07 23:30:00 81 /min [facility] Respiratory rate 2021-06-07 23:30:00 21 /min [facility] Oxygen saturation in 2021-06-07 23:30:00 97 /min [facility] Arterial blood by [place] [employer] Pulse oximetry Branch Body weight 2021-06-07 21:55:00 136.079 kg [facility] BMI 2021-06-07 21:55:00 60.59 kg/m2 [facility] Body temperature 2021-06-07 21:55:00 37.44 Abi [facility] Systolic blood 2020-11-21 01:30:00 163 mm[Hg] [facility] Diastolic blood 2020-11-21 01:30:00 106 mm[Hg] [facility] Heart rate 2020-11-21 01:30:00 97 /min [facility] Respiratory rate 2020-11-21 01:30:00 21 /min [facility] Oxygen saturation in 2020-11-21 01:30:00 97 /min [facility] Arterial blood by [facility] Pulse oximetry Branch Body temperature 2020-11-20 23:27:00 36.83 Abi [facility] Body height 2020-11-20 23:27:00 149.9 cm [facility] Body weight 2020-11-20 23:27:00 136.079 kg [facility] BMI 2020-11-20 23:27:00 60.59 kg/m2 [facility] Systolic blood 2020-11-21 01:30:00 163 mm[Hg] [facility] Diastolic blood 2020-11-21 01:30:00 106 mm[Hg] [facility] [place] Heart rate 2020-11-21 01:30:00 97 /min [facility] Respiratory rate 2020-11-21 01:30:00 21 /min [facility] Oxygen saturation in 2020-11-21 01:30:00 97 /min [facility] Arterial blood by [facility] Pulse oximetry Branch Body temperature 2020-11-20 23:27:00 36.83 Abi [facility] [place] [facility] [place] Body height 2020-11-20 23:27:00 149.9 cm [facility] Body weight 2020-11-20 23:27:00 136.079 kg [facility] BMI 2020-11-20 23:27:00 60.59 kg/m2 [facility] Respitory Rate 2018-05-22 17:30:00 Memanai al Eldena Systolic (mm Hg) 2018-05-22 17:30:00 Erwin urena Jason Diastolic (mm Hg) 2018-05-22 17:30:00 Mem orial [facility] Temperature Oral (F) 2018-05-22 17:30:00 98.4 F [facility] Temperature Oral (F) 2018-05-22 16:23:00 98.6 F [facility] Systolic (mm Hg) 2018-05-22 16:23:00 Erwin rial Eldena Diastolic (mm Hg) 2018-05-22 16:23:00 Mem orial Jason Respitory Rate 2018-05-22 14:00:00 Memori al [facility] Systolic (mm Hg) 2018-05-22 14:00:00 Erwin rial Jason Diastolic (mm Hg) 2018-05-22 14:00:00 Mem orial Jason Respitory Rate 2018-05-22 13:30:00 Memori al Jason BMI Calculated 2018-05-22 10:16:00 Memori al Jason Height 2018-05-22 10:16:00 149.86 cm [facility] Weight 2018-05-22 10:16:00 [facility] Heart Rate 2018-05-22 10:16:00 [facility] Temperature Oral (F) 2018-05-22 10:16:00 97.9 F [facility] Temperature Oral (F) 2017-11-19 13:40:00 97.2 F [facility] Systolic (mm Hg) 2017-11-19 13:40:00 Erwin rial Eldena Diastolic (mm Hg) 2017-11-19 13:40:00 Mem orial Jason Heart Rate 2017-11-19 13:40:00 [facility] Respitory Rate 2017-11-19 13:40:00 Memori al Jason Heart Rate 2017-11-19 05:24:00 [facility] Systolic (mm Hg) 2017-11-19 05:24:00 Erwin rial Jason Diastolic (mm Hg) 2017-11-19 05:24:00 Mem orial Jason Respitory Rate 2017-11-19 05:24:00 Memori al Jason Temperature Oral (F) 2017-11-19 05:24:00 98.1 F [facility] Respitory Rate 2017-11-19 01:15:00 Memori al Jason Systolic (mm Hg) 2017-11-19 01:15:00 Erwin rial Jason Diastolic (mm Hg) 2017-11-19 01:15:00 Mem orial Eldena Heart Rate 2017-11-19 01:15:00 [facility] Temperature Oral (F) 2017-11-19 01:15:00 98.1 F [facility] Weight 2017-11-18 14:00:00 [facility] Weight 2017-11-17 14:[facility]:00 [facility] 2017-11-15 14:00:00 [facility] BMI Calculated 2017-11-15 05:43:00 Tonyanai seo [facility] Height 2017-11-15 05:43:00 162.56 cm [facility] Height 2017-11-14 22:41:00 149.86 cm [facility] BMI Calculated 2017-11-14 22:41:00 Gerri seo [facility] Procedures Procedure Date / Time Performing Clinician Source Performed CT HEAD WO CONTRAST 2021-09-29 00:15:29 Roger Yanez [facility] URINALYSIS 2021-09-28 23:53:00 Roger Yanez Cici [facility] COMP. METABOLIC PANEL 2021-09-28 23:52:00 Roger Yanez Cici [facility] ([id number]) [facility] CBC WITH DIFF 2021-09-28 23:52:00 Roger Yanez Cici [facility] XR CHEST 1 VW 2021-08-07 03:03:32 Jeffry Lagos [facility] COMP. METABOLIC PANEL 2021-08-06 11:57:00 [facility] ([id number]) [facility] CBC WITH DIFF 2021-08-06 11:57:00 [facility] BASIC METABOLIC PANEL (NA, 2021-08-04 12:10:00 [facility], CL, CO2, GLUCOSE, BUN, Medica l Branch CREATININE, CA) CBC WITH DIFF 2021-08-04 12:09:00 [facility] 2021-08-04 00:40:00 Hanh Gunter [facility] URINE CULTURE 2021-08-04 00:40:00 Hanh Gunter [facility] FECES CULTURE 2021-08-03 14:58:00 [facility]LO[facility] 2021-08-03 14:58:00 [facility] CLOSTRIDIUM DIFFICILE 2021-08-03 14:58:00 [facility] TOXIN [facility] FECAL PATHOGENS BY PCR 2021-08-03 14:58:00 May Brambila [facility] URINE DRUG (IMMUNOASSAY) - 2021-08-03 10:11:00 May Brambila [facility] COMPREHENSIVE DRUG SCREEN Medica l Branch COVID-19 (ID NOW RAPID 2021-08-03 07:33:00 Lamine Serna [facility] TESTING) Medical Branch LAB ONLY COVID 2021-08-03 07:33:00 Lamine Serna [facility] INTERPRETATION [facility] COMP. METABOLIC PANEL 2021-08-03 06:18:00 Lamine Serna [facility] ([id number]) [facility] CBC WITH DIFF 2021-08-03 05:40:00 Lamine Serna [facility] URINALYSIS 2021-08-01 01:43:00 Stephanie Balderrama [facility] LIPASE 2021-08-01 01:40:00 Stephanie Balderrama [facility] COMP. METABOLIC PANEL 2021-08-01 01:40:00 Stephanie Balderrama [facility] ([id number]) [facility] CBC WITH DIFF 2021-08-01 01:38:00 Stephanie Balderrama [facility] XR CHEST 1 VW 2021-07-31 23:40:19 Stephanie Balderrama [facility] ASSIGNMENT OF BENEFITS 2021-07-31 22:05:40 Doctor Sebleigned, [facility] NOTICE OF PRIVACY 2021-07-31 22:04:58 Doctor Beto, [facility]REFUSAL FOR 2021-07-31 22:04:33 Doctor Beto, [facility] DIAGNOSIS AND TREATMENT [facility] URINALYSIS 2021-07-29 23:09:00 Lynette Fonseca [facility] BLOOD CULTURE SCREEN 2021-07-29 23:04:00 Lynette Fonseca [facility] D-DIMER 2021-07-29 22:49:00 Lynette Fonseca [facility] COVID-19 (ID NOW RAPID 2021-07-29 22:48:00 Lynette Fonseca [facility] TESTING) Medical Branch COMP. METABOLIC PANEL 2021-07-29 22:17:00 Lynette Fonseca [facility] ([id number]) Medical Branch CBC WITH DIFF 2021-07-29 22:17:00 Lynette Fonseca [facility] XR CHEST 1 VW 2021-07-29 21:47:19 Lynette Fonseca [facility] COMP. METABOLIC PANEL 2021-06-07 22:20:00 Sidney Hook [facility] ([id number]) Medical Branch CBC WITH DIFF 2021-06-07 22:20:00 Singer [facility] o [facility] CT ABDOMEN PELVIS WO 2020-11-21 00:39:40 Brittany Saunders F Uni [facility] CONTRAST Medical Branch LIPASE 2020-11-21 00:06:00 Brittany Saunders F [facility] COMP. 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 Plan of Care Planned Activity Planned Date Details Comments Source Future Scheduled 2022-07-[address] [facility]00 (procedure) [code = [facility] Center [id number]] Future Scheduled 2021-03-[address] [facility] - Test 00:00:00 (Season Ended) [code = [facility] INFLUENZA VACCINE (Season Ended)] Future Scheduled 2020-07-[address] [facility] - Test 00:00:00 (12+) [code = Medical Center DEPRESSION SCREENING (12+)] Future Scheduled 2019-10-[address] [facility] 00:[facility]00 measurement [facility] (procedure) [code = 04388916] Future Scheduled 2004 DTAP/TDAP/TD VACCINES [facility]00 protein (procedure) [facility] Center [code = 856764652] Future Scheduled [address] [facility] - Test 00:00:00 0-64 YRS (1 of 1 - Medical C enter PPSV23) [code = PNEUMOCOCCAL VACCINE 0-64 YRS (1 of 1 - PPSV23)] Encounters Start End Encounter Admission Attending Care Care Encounter Source Date/Time Date/Time Type Type Clinicians Facility Department ID 2021-08-09 Outpatient Nichole, [facility] [id number] 13:[facility]16 Eren [id number] [facility] 2021-08-09 Outpatient Nichole, [facility] [id number] 13:17:39 Eren [id number] [facility] 2021-08-09 Out[facility] [id number] 13:16:34 Eren [id number] [facility] 2021-09-28 2021-09-28 Emergency X Roger YANEZ [facility] ERT [id number] Univers 18:08:00 22:51:00 ity [facility] 2021-09-28 2021-09-28 Emergency Tawanda, K [facility] [id number] Univers 18:08:00 22:51:00 Cici DURAN [id number] i ty [facility] [id number] [facility] [id number] [facility] 084 Branch 2021-08-09 2021-08-09 Transition Duane PHILLYAnish [id number] Univers 00:00:00 00:00:00 of Care Kamlia GILLESPIE [id number] ity of [place] [id number] [facility] [id number] [facility] 403 Branch 2021-08-02 2021-08-08 Inpatient [facility] [id number] Univers 19:07:00 19:39:00 LAMINE [facility] 2021-08-02 2021-08-08 [facility] 1.2.840. 114 [id number] Univers 19:07:00 19:39:00 Encounter May Brambila RENEE [id number] ity of [place] 4.2.7.2.686 [facility] [id number] [address] 2021-07-31 2021-07-31 [facility] [id number] Univers 14:41:00 22:07:00 [facility] 2021-07-31 2021-07-31 Emergency [facility] [id number] Univers 14:41:00 22:07:00 Stephanie DURAN [id number] ity of [place] 4.2.7.2.686 [facility] [id number] [address] 2021-07-29 2021-07-29 Emergency [facility] [id number] Univers 14:49:00 21:33:00 LYNETTE saba [facility] 2021-07-29 2021-07-29 [facility] [id number] Univers 14:49:00 21:33:00 Lynette DURAN [id number] ity of [place] 4.2.7.2.686 [facility] [id number] [address] 2021-07-11 2021-07-11 Laboratory Only, Ang Db Test [facility] 1.2.8 40.114 [id number] Univers 18:00:00 18:15:00 Only [facility] [id number] ity of [place] 4.2.7.2.686 Tim as VICENTA?BLEA [id number] [address] MEDICAL OFFICE BUILDING 2021-07-11 2021-07-11 Outpatient R TOÑO [facility] [id number] Univers 18:00:00 18:00:00 SIERRA [facility] 2021-07-05 2021-07-05 ambulatory [facility]ML[facility] [id number] [facility] 2021-07-04 2021-07-04 ambulatory [facility]LMLC [facility] [id number] [facility] 2021-06-07 2021-06-07 Emergency X , [facility] ERT [id number] Univers 15:54:00 18:34:00 SIDNEY [facility] 2021-06-07 2021-06-07 Emergency [facility] [id number] Univers 15:54:00 18:34:00 Sidney DURAN [id number] i ty [facility] 4.2.7.2.686 [facility] [id number] [address] 2021-04-25 2021-04-25 Outpatient [facility]LMLC [facility] [id number] [facility] 2021-04-11 2021-04-11 Outpatient [facility]LML[facility] [id number] [facility] 2021-02-21 2021-02-21 Outpatient [facility]LMLC [facility] [id number] [facility] 2021-01-31 2021-01-31 [facility] [id number] 2021-01-03 2021-01-03 [facility] [id number] [facility] 2020-11-20 2020-11-20 Emergency [facility] 1.2.840.114 [id number] 18:22:00 22:21:00 Brittany Trujillo [place] [id number] [place] 4.2.7.2.686 [place] [id number] [facility] 2020-11-20 2020-11-20 Emergency [facility] 1.2.840.114 [id number] [facility] 18:22:00 22:21:00 Brittany Duran [id number] [facility] 4.2.7.2.686 [facility] [id number] [address] 2020-11-20 2020-11-20 Emergency X [facility] ERT [id number] Univers 18:22:00 18:22:00 [facility] 2019-03-02 2019-03-04 Phone nullFlavo MNA [id number] Memoria 16:11:26 04:59:59 Message r Neurosurger 08 l y [facility] 2019-02-10 2019-02-12 Phone nullFlavo MNA [id number] Memoria 16:16:47 04:59:59 Message r Neurosurger 07 l y [facility] 2019-01-26 2019-01-28 Phone nullFlavo MNA [id number] Memoria 15:52:03 04:59:59 Message r Neurosurger 06 l y [facility] 2019-01-01 2019-01-03 Phone nullFlavo MNA [id number] Memoria 18:55:03 04:59:59 Message r Neurosurger 05 l y [facility] 2018-05-22 2018-05-22 Emergency [facility] [id number] Memoria 10:12:00 18:24:00 r Eldena 12 [facility] 2018-02-18 2018-02-18 [facility] [id number] 11:15:00 11:15:00 t [employer] [facility] Medicine Outpati ent Clinics 2018-01-27 2018-01-27 [facility] [id number] 11:30:00 11:30:00 t [employer] s [employer] [facility] Outpati ent Clinics 2018-01-03 2018-01-03 [facility] [id number] 15:41:00 15:41:00 t [employer] [facility] Outpati ent Clinics 2017-12-23 2017-12-23 [facility] [id number] 15:42:00 15:42:00 t [employer] [facility] Medicine Outpati ent Clinics 2017-12-17 2017-12-17 [facility] [id number] 11:00:00 11:00:00 t [employer] [facility] Outpati ent Clinics 2017-11-14 2017-11-19 Inpatient [facility] [id number] [facility] 22:40:00 17:28:00 [facility] 23 [facility] Results Test Description Test Time Test Comments [...] 32.9 g/dL 31.2-35.0 RDW-SD (test code = 80510-7) 47.6 fL 38.5-51.6 RDW-CV (test code = 788-0) 15.1 % 12.1-15.4 PLT (test code = 777-3) See_Comment H [Au tomated message] The system which ge nerated this result transmit lester reference range: 150 - 32 8 10*3/?L. The reference range was not used to interpret th is result as normal/abnormal . MPV (test code = 20280-3) 10.5 fL 9.8-13.0 NRBC/100 WBC (test code = See_Comment [ Automated message] The [id number]) system which ge nerated this result transmit lester reference range: 0.0 - 10 .0 /100 WBCs. The reference r boubacar was not used to interpr et this result as normal/abnor mal. NRBC x10^3 (test code = <0.01 See_Comment [Au tomated message] The 5123494354) system which Pervasip nerated this result transmit lester reference range: 10*3/?L. The reference range was not u sed to interpret this result as normal/abnormal . GRAN MAT (NEUT) % (test code 66.7 % = 770-8) IMM GRAN % (test code = 0.40 % 5329697903) LYMPH % (test code = 736-9) 24.4 % MONO % (test code = 5905-5) 6.6 % EOS % (test code = 713-8) 1.5 % BASO % (test code = 706-2) 0.4 % GRAN MAT x10^3(ANC) (test 7.43 10*3/uL 1.99-6.95 H code = 2730836561) IMM GRAN x10^3 (test code = 0.04 10*3/uL 0.00-0.06 1784951589) LYMPH x10^3 (test code = 2.72 10*3/uL 1.09-3.23 731-0) MONO x10^3 (test code = 0.74 10*3/uL 0.36-1.02 742-7) EOS x10^3 (test code = 0.17 10*3/uL 0.06-0.53 711-2) BASO x10^3 (test code = 0.04 10*3/uL 0.01-0.09 704-7) Lab Interpretation (test Abnormal code = 53319-4) [facility]. METABOLIC PANEL ([id number])2021-09-29 00:18:07 Test Item Value Reference Range Interpretation Comments NA (test code = 139 mmol/L 135-145 8365651063) K (test code = 4.8 mmol/L 3.5-5.0 0310189516) CL (test code = 104 mmol/L 98-108 8743591756) CO2 TOTAL (test code = 22 mmol/L 23-31 L 4838878381) AGAP (test code = 2-16 6803332941) BUN (test code = 15 mg/dL 7-23 9977775492) GLUCOSE (test code = 93 mg/dL 70-110 4004389027) CREATININE (test code = 0.67 mg/dL 0.60-1.25 3670882955) TOTAL BILI (test code = 0.7 mg/dL 0.1-1.0 2779256092) CALCIUM (test code = 9.8 mg/dL 8.6-10.6 9157869112) T PROTEIN (test code = 8.9 g/dL 6.3-8.2 H 8104457230) ALBUMIN (test code = 4.9 g/dL 3.5-5.0 0986819997) ALK PHOS (test code = 126 U/L 34-122 H 3682295235) ALTv (test code = 43 U/L 5-50 1742-6) AST(SGOT) (test code = 28 U/L 13-40 7767460490) eGFR (test code = mL/min/1.73m2 1667567187) ARPITA (test code = ARPITA) Association of [...] tests). Lab Interpretation Abnormal (test code = 20009-9) [facility]. METABOLIC PANEL ([id number])2021-08-06 12:48:40 Test Item Value Reference Range Interpretation Comments NA (test code = 137 mmol/L 135-145 6997895809) K (test code = 4.5 mmol/L 3.5-5.0 1769468154) CL (test code = 107 mmol/L 98-108 8590788843) CO2 TOTAL (test code = 24 mmol/L 23-31 1388534844) AGAP (test code = 2-16 4450242930) BUN (test code = 16 mg/dL 7-23 2366145558) GLUCOSE (test code = 116 mg/dL 70-110 H 4690562864) CREATININE (test code = 0.62 mg/dL 0.60-1.25 0336825776) TOTAL BILI (test code = 0.4 mg/dL 0.1-1.0 4688340985) CALCIUM (test code = 8.7 mg/dL 8.6-10.6 5738262943) T PROTEIN (test code = 7.5 g/dL 6.3-8.2 3898513159) ALBUMIN (test code = 3.9 g/dL 3.5-5.0 9862765640) ALK PHOS (test code = 93 U/L 34-122 8676740713) ALTv (test code = 40 U/L 5-50 1742-6) AST(SGOT) (test code = 51 U/L 13-40 H 0518526201) eGFR (test code = mL/min/1.73m2 2941145247) ARPITA (test code = ARPITA) Association of [...] tests). Lab Interpretation Abnormal (test code = 78674-4) [facility] WITH [id number] 12:21:36 Test Item Value Reference Range Interpretation [...] RDW-SD (test code = 50.6 fL 38.5-51.6 30082-0) RDW-CV (test code = 15.3 % 12.1-15.4 788-0) PLT (test code = See_Comment H [Automated 777-3) message] The sy stem which generated this result transmitted reference range : 150 - 328 10*3/ ?L. The reference r boubacar was not used to interpret this result as normal/abnormal . MPV (test code = 10.3 fL 9.8-13.0 59812-3) NRBC/100 WBC (test See_Comment [Automat ed code = 6617637802) message] The system which generated this result transmitted reference range : 0.0 - 10.0 /100 WBCs. The refer ence range was not u sed to interpret th is result as normal/abnormal . NRBC x10^3 (test code <0.01 See_Comment [Auto mated = 1002427494) message] The s ystem which generated this result transmitted reference range : 10*3/?L. The reference range was not used to interpret this result as normal/abnormal . GRAN MAT (NEUT) % 61.5 % (test code = 770-8) IMM GRAN % (test code 0.80 % = 7996621877) LYMPH % (test code = 27.8 % 736-9) MONO % (test code = 6.9 % 5905-5) EOS % (test code = 2.4 % 713-8) BASO % (test code = 0.6 % 706-2) GRAN MAT x10^3(ANC) 6.07 10*3/uL 1.99-6.95 (test code = 2400032155) IMM GRAN x10^3 (test 0.08 10*3/uL 0.00-0.06 H code = 5415022773) LYMPH x10^3 (test code 2.75 10*3/uL 1.09-3.23 = 731-0) MONO x10^3 (test code 0.68 10*3/uL 0.36-1.02 = 742-7) EOS x10^3 (test code = 0.24 10*3/uL 0.06-0.53 711-2) BASO x10^3 (test code 0.06 10*3/uL 0.01-0.09 = 704-7) Lab Interpretation Abnormal (test code = 05124-7) [facility] Metabolic Panel (NA, K, CL, CO2, GLUCOSE, BUN, CREATININE, CA)2021-08-04 12:40:30 Test Item Value Reference Range Interpretation Comments NA (test code = 139 mmol/L 135-145 0506718791) K (test code = 3.9 mmol/L 3.5-5.0 7285184234) CL (test code = 108 mmol/L 98-108 0862202488) CO2 TOTAL (test code = 25 mmol/L 23-31 0344926260) AGAP (test code = 2-16 2111725012) BUN (test code = 14 mg/dL 7-23 8492920681) GLUCOSE (test code = 107 mg/dL 70-110 6190048920) CREATININE (test code = 0.61 mg/dL 0.60-1.25 4531969715) CALCIUM (test code = 8.1 mg/dL 8.6-10.6 L 8227934610) eGFR (test code = mL/min/1.73m2 3078338932) ARPITA (test code = ARPITA) Association of [...] tests). Lab Interpretation Abnormal (test code = 51983-4) [facility] with [id number] 12:23:51 Test Item Value Reference Range Interpretation Comments WBC (test code = See_Comment [Automated 1514-2) message] The sy stem which generated this result transmitted reference range : 4.20 - 10.70 10*3/?L. The reference range was not used to interpret this result as normal/abnormal . RBC (test code = See_Comment [Automated 877-4) message] The sy stem which generated this [...] RDW-SD (test code = 49.3 fL 38.5-51.6 22620-3) RDW-CV (test code = 15.3 % 12.1-15.4 788-0) PLT (test code = See_Comment H [Automated 777-3) message] The sy stem which generated this result transmitted reference range : 150 - 328 10*3/ ?L. The reference r boubacar was not used to interpret this result as normal/abnormal . MPV (test code = 10.2 fL 9.8-13.0 03168-4) NRBC/100 WBC (test See_Comment [Automat ed code = 5287717066) message] The system which generated this result transmitted reference range : 0.0 - 10.0 /100 WBCs. The refer ence range was not u sed to interpret th is result as normal/abnormal . NRBC x10^3 (test code <0.01 See_Comment [Auto mated = 3341051266) message] The s ystem which generated this result transmitted reference range : 10*3/?L. The reference range was not used to interpret this result as normal/abnormal . GRAN MAT (NEUT) % 56.7 % (test code = 770-8) IMM GRAN % (test code 0.60 % = 0420574576) LYMPH % (test code = 31.1 % 736-9) MONO % (test code = 8.7 % 5905-5) EOS % (test code = 2.4 % 713-8) BASO % (test code = 0.5 % 706-2) GRAN MAT x10^3(ANC) 4.83 10*3/uL 1.99-6.95 (test code = 3628923813) IMM GRAN x10^3 (test 0.05 10*3/uL 0.00-0.06 code = 6511313923) LYMPH x10^3 (test code 2.64 10*3/uL 1.09-3.23 = 731-0) MONO x10^3 (test code 0.74 10*3/uL 0.36-1.02 = 742-7) EOS x10^3 (test code = 0.20 10*3/uL 0.06-0.53 711-2) BASO x10^3 (test code 0.04 10*3/uL 0.01-0.09 = 704-7) Lab Interpretation Abnormal (test code = 02499-6) [facility]. METABOLIC PANEL (79459)2021-08-03 06:32:14 Test Item Value Reference Range Interpretation Comments NA (test code = 139 mmol/L 135-145 0621836492) K (test code = 4.5 mmol/L 3.5-5.0 2488119377) CL (test code = 102 mmol/L 98-108 8770561529) CO2 TOTAL (test code = 26 mmol/L 23-31 2388618336) AGAP (test code = 2-16 8387153643) BUN (test code = 16 mg/dL 7-23 4781903738) GLUCOSE (test code = 99 mg/dL 70-110 9972648615) CREATININE (test code = 0.83 mg/dL 0.60-1.25 6433428179) TOTAL BILI (test code = 0.6 mg/dL 0.1-1.2 9009566141) CALCIUM (test code = 9.5 mg/dL 8.6-10.6 8598599635) T PROTEIN (test code = 8.6 g/dL 6.3-8.2 H 6164399875) ALBUMIN (test code = 4.6 g/dL 3.5-5.0 6244080386) ALK PHOS (test code = 121 U/L 34-122 0606100310) ALTv (test code = 58 U/L 5-50 H 1742-6) AST(SGOT) (test code = 32 U/L 13-40 9272865735) eGFR (test code = mL/min/1.73m2 7098697258) ARPITA (test code = ARPITA) Association of [...] tests). Lab Interpretation Abnormal (test code = 73180-0) [facility] WITH [id number] 05:48:31 Test Item Value Reference Range Interpretation Comments WBC (test code = See_Comment H [Automated 2698-2) message] The sy stem which generated this result transmitted reference range : 4.20 - 10.70 10*3/?L. The reference range was not used to interpret this result as normal/abnormal . RBC (test code = See_Comment H [Automated 9-8) message] The sy stem which generated this [...] RDW-SD (test code = 49.1 fL 38.5-51.6 94745-9) RDW-CV (test code = 15.5 % 12.1-15.4 H 788-0) PLT (test code = See_Comment H [Automated 777-3) message] The sy stem which generated this result transmitted reference range : 150 - 328 10*3/ ?L. The reference r boubacar was not used to interpret this result as normal/abnormal . MPV (test code = 10.4 fL 9.8-13.0 99929-2) NRBC/100 WBC (test See_Comment [Automat ed code = 6277529515) message] The system which generated this result transmitted reference range : 0.0 - 10.0 /100 WBCs. The refer ence range was not u sed to interpret th is result as normal/abnormal . NRBC x10^3 (test code <0.01 See_Comment [Auto mated = 3138553527) message] The s ystem which generated this result transmitted reference range : 10*3/?L. The reference range was not used to interpret this result as normal/abnormal . GRAN MAT (NEUT) % 64.8 % (test code = 770-8) IMM GRAN % (test code 0.70 % = 6307095864) LYMPH % (test code = 25.2 % 736-9) MONO % (test code = 6.9 % 5905-5) EOS % (test code = 1.9 % 713-8) BASO % (test code = 0.5 % 706-2) GRAN MAT x10^3(ANC) 7.80 10*3/uL 1.99-6.95 H (test code = 5809062800) IMM GRAN x10^3 (test 0.08 10*3/uL 0.00-0.06 H code = 9682746511) LYMPH x10^3 (test code 3.04 10*3/uL 1.09-3.23 = 731-0) MONO x10^3 (test code 0.83 10*3/uL 0.36-1.02 = 742-7) EOS x10^3 (test code = 0.23 10*3/uL 0.06-0.53 711-2) BASO x10^3 (test code 0.06 10*3/uL 0.01-0.09 = 704-7) Lab Interpretation Abnormal (test code = 70018-5) [facility]. METABOLIC PANEL (24599)2021-08-01 02:19:08 Test Item Value Reference Range Interpretation Comments NA (test code = 136 mmol/L 135-145 5810622848) K (test code = 4.4 mmol/L 3.5-5.0 1307280820) CL (test code = 99 mmol/L 98-108 2262638322) CO2 TOTAL (test code = 25 mmol/L 23-31 5509058079) AGAP (test code = 2-16 7724561793) BUN (test code = 19 mg/dL 7-23 3098354476) GLUCOSE (test code = 103 mg/dL 70-110 8707174852) CREATININE (test code = 0.70 mg/dL 0.60-1.25 2787402782) TOTAL BILI (test code = 0.7 mg/dL 0.1-1.0 3261719548) CALCIUM (test code = 9.2 mg/dL 8.6-10.6 6925314452) T PROTEIN (test code = 9.4 g/dL 6.3-8.2 H 5013458787) ALBUMIN (test code = 4.8 g/dL 3.5-5.0 9258618961) ALK PHOS (test code = 146 U/L 34-122 H 0753497089) ALTv (test code = 75 U/L 5-50 H 1742-6) AST(SGOT) (test code = 37 U/L 13-40 2489835205) eGFR (test code = mL/min/1.73m2 5834557465) ARPITA (test code = ARPITA) Association of [...] tests). Lab Interpretation Abnormal (test code = 55999-4) [facility]27 Test Item Value Reference Range Interpretation Comments LIPASE (test code = 6857263776) 86 U/L 0-220 Lab Interpretation (test code = Normal 25124-7) [facility] [id number] 01:55:49 Test Item Value Reference Range Interpretation Comments WBC (test code = See_Comment H [Automated 6844-2) message] The sy stem which generated this result transmitted reference range : 4.20 - 10.70 10*3/?L. The reference range was not used to interpret this result as normal/abnormal . RBC (test code = See_Comment H [Automated 268-8) message] The sy stem which generated this [...] RDW-SD (test code = 48.7 fL 38.5-51.6 48321-9) RDW-CV (test code = 15.4 % 12.1-15.4 788-0) PLT (test code = See_Comment H [Automated 777-3) message] The sy stem which generated this result transmitted reference range : 150 - 328 10*3/ ?L. The reference r boubacar was not used to interpret this result as normal/abnormal . MPV (test code = 9.9 fL 9.8-13.0 94666-6) NRBC/100 WBC (test See_Comment [Automat ed code = 6493050204) message] The system which generated this result transmitted reference range : 0.0 - 10.0 /100 WBCs. The refer ence range was not u sed to interpret th is result as normal/abnormal . NRBC x10^3 (test code <0.01 See_Comment [Auto mated = 9933826313) message] The s ystem which generated this result transmitted reference range : 10*3/?L. The reference range was not used to interpret this result as normal/abnormal . GRAN MAT (NEUT) % 69.8 % (test code = 770-8) IMM GRAN % (test code 0.50 % = 8283746608) LYMPH % (test code = 20.5 % 736-9) MONO % (test code = 6.8 % 5905-5) EOS % (test code = 1.9 % 713-8) BASO % (test code = 0.5 % 706-2) GRAN MAT x10^3(ANC) 7.72 10*3/uL 1.99-6.95 H (test code = 8593378905) IMM GRAN x10^3 (test 0.05 10*3/uL 0.00-0.06 code = 8986276981) LYMPH x10^3 (test code 2.26 10*3/uL 1.09-3.23 = 731-0) MONO x10^3 (test code 0.75 10*3/uL 0.36-1.02 = 742-7) EOS x10^3 (test code = 0.21 10*3/uL 0.06-0.53 711-2) BASO x10^3 (test code 0.06 10*3/uL 0.01-0.09 = 704-7) Lab Interpretation Abnormal (test code = 74127-5) [facility][id number] 23:33:52 Test Item Value Reference Interpretation Comments Range D-DIMER (test code = See_Comment [Autom ated 5760735465) message] The system which generated this result [...] diagnosis. Lab Interpretation Normal (test code = 56479-9) [facility]OL[facility] (38947)2021-07-29 22:42:48 Test Item Value Reference Range Interpretation Comments NA (test code = 135 mmol/L 135-145 2796138714) K (test code = 4.6 mmol/L 3.5-5.0 1521656665) CL (test code = 102 mmol/L 98-108 2901611327) CO2 TOTAL (test code = 24 mmol/L 23-31 9112881209) AGAP (test code = 2-16 4490655665) BUN (test code = 17 mg/dL 7-23 5828685662) GLUCOSE (test code = 107 mg/dL 70-110 1204905446) CREATININE (test code = 0.60 mg/dL 0.60-1.25 9490042769) TOTAL BILI (test code = 1.0 mg/dL 0.1-1.2 1288284103) CALCIUM (test code = 9.4 mg/dL 8.6-10.6 5779569114) T PROTEIN (test code = 8.6 g/dL 6.3-8.2 H 1313054769) ALBUMIN (test code = 4.6 g/dL 3.5-5.0 0196357230) ALK PHOS (test code = 159 U/L 34-122 H 9281209245) ALTv (test code = 77 U/L 5-50 H 1742-6) AST(SGOT) (test code = 38 U/L 13-40 1646972038) eGFR (test code = mL/min/1.73m2 2465091877) ARPITA (test code = ARPITA) Association of [...] tests). Lab Interpretation Abnormal (test code = 91007-3) [facility] WITH [id number] 22:30:27 Test Item Value Reference Range Interpretation [...] RDW-SD (test code = 48.0 fL 38.5-51.6 08972-6) RDW-CV (test code = 15.1 % 12.1-15.4 788-0) PLT (test code = See_Comment H [Automated 777-3) message] The system which generated this result transmit lester reference range : 150 - 328 10*3/ ?L. The reference range was not u sed to interpret th is result as normal/abnormal . MPV (test code = 10.3 fL 9.8-13.0 02024-3) NRBC/100 WBC (test See_Comment [Automat ed code = 9402392161) message] The system which generated this result transmit lester reference range : 0.0 - 10.0 /100 WBCs. The reference range was not used to interpret this result as normal/abnormal . NRBC x10^3 (test code <0.01 See_Comment [Auto mated = 0228875185) message] The system which generated this result transmit lester reference range : 10*3/?L. The reference range was not used to interpret this result as normal/abnormal . GRAN MAT (NEUT) % 79.9 % (test code = 770-8) IMM GRAN % (test code 0.50 % = 3479895979) LYMPH % (test code = 11.8 % 736-9) MONO % (test code = 6.6 % 5905-5) EOS % (test code = 0.9 % 713-8) BASO % (test code = 0.3 % 706-2) GRAN MAT x10^3(ANC) 10.70 10*3/uL 1.99-6.95 H (test code = 2786210043) IMM GRAN x10^3 (test 0.07 10*3/uL 0.00-0.06 H code = 1123447998) LYMPH x10^3 (test code 1.58 10*3/uL 1.09-3.23 = 731-0) MONO x10^3 (test code 0.89 10*3/uL 0.36-1.02 = 742-7) EOS x10^3 (test code = 0.12 10*3/uL 0.06-0.53 711-2) BASO x10^3 (test code 0.04 10*3/uL 0.01-0.09 = 704-7) Lab Interpretation Abnormal (test code = 80929-7) [facility] (75161)2021-06-07 23:02:15 Test Item Value Reference Range Interpretation Comments NA (test code = 137 mmol/L 135-145 1351505383) K (test code = 4.5 mmol/L 3.5-5.0 6111766141) CL (test code = 109 mmol/L 98-108 H 3119692541) CO2 TOTAL (test code = 22 mmol/L 23-31 L 6740326972) AGAP (test code = 2-16 1704819671) BUN (test code = 7 mg/dL 7-23 7014174373) GLUCOSE (test code = 87 mg/dL 70-110 5404438604) CREATININE (test code = 0.61 mg/dL 0.60-1.25 5148444907) TOTAL BILI (test code = 0.5 mg/dL 0.1-1.8 4784355202) CALCIUM (test code = 9.0 mg/dL 8.6-10.6 9034990804) T PROTEIN (test code = 6.9 g/dL 6.3-8.2 4027753519) ALBUMIN (test code = 3.5 g/dL 3.5-5.0 3258032259) ALK PHOS (test code = 112 U/L 34-122 2379968929) ALTv (test code = 35 U/L 5-50 1742-6) AST(SGOT) (test code = 21 U/L 13-40 8356764796) eGFR (test code = mL/min/1.73m2 5647529750) ARPITA (test code = ARPITA) Association of [...] tests). Lab Interpretation Abnormal (test code = 73356-2) [facility] WITH [id number] 22:51:57 Test Item Value Reference Range Interpretation [...] RDW-SD (test code = 42.4 fL 38.5-51.6 84016-7) RDW-CV (test code = 13.6 % 12.1-15.4 788-0) PLT (test code = See_Comment H [Automated 777-3) message] The sy stem which generated this result transmitted reference range : 150 - 328 10*3/ ?L. The reference r boubacar was not used to interpret this result as normal/abnormal . MPV (test code = 9.4 fL 9.8-13.0 L 35511-1) NRBC/100 WBC (test See_Comment [Automat ed code = 2254716962) message] The system which generated this result transmitted reference range : 0.0 - 10.0 /100 WBCs. The refer ence range was not u sed to interpret th is result as normal/abnormal . NRBC x10^3 (test code <0.01 See_Comment [Auto mated = 3162564299) message] The s ystem which generated this result transmitted reference range : 10*3/?L. The reference range was not used to interpret this result as normal/abnormal . GRAN MAT (NEUT) % 76.4 % (test code = 770-8) IMM GRAN % (test code 0.40 % = 4668620806) LYMPH % (test code = 16.3 % 736-9) MONO % (test code = 5.6 % 5905-5) EOS % (test code = 1.0 % 713-8) BASO % (test code = 0.3 % 706-2) GRAN MAT x10^3(ANC) 8.81 10*3/uL 1.99-6.95 H (test code = 0787908026) IMM GRAN x10^3 (test 0.05 10*3/uL 0.00-0.06 code = 7070326680) LYMPH x10^3 (test code 1.88 10*3/uL 1.09-3.23 = 731-0) MONO x10^3 (test code 0.64 10*3/uL 0.36-1.02 = 742-7) EOS x10^3 (test code = 0.12 10*3/uL 0.06-0.53 711-2) BASO x10^3 (test code 0.03 10*3/uL 0.01-0.09 = 704-7) Lab Interpretation Abnormal (test code = 44583-6) [facility] RAPID TESTING)2020-11-21 01:01:33 Test Item Value Reference Range Interpretation Comments SARS-CoV-2 Rapid ID NOW Not Detected Not Detected (test code = 43573-7) ARPITA (test code = ARPITA) ID NOW COVID-19 Assay is an isothermal nucleic acid amplification test intended for the qualitative detection of nucleic acid from SARS-CoV-2 viral RNA in nasopharyngeal (WASHING TUB OPERATOR) specimens. It is used under Emergency Use [...] indicated. Lab Interpretation Normal (test code = 83477-9) [facility]. METABOLIC PANEL (14274)2020-11-21 01:00:33 Test Item Value Reference Range Interpretation Comments NA (test code = 140 mmol/L 135-145 7149323662) K (test code = 4.4 mmol/L 3.5-5.0 4764386038) CL (test code = 103 mmol/L 98-108 0208087735) CO2 TOTAL (test code = 28 mmol/L 23-31 0132593202) AGAP (test code = 2-16 8443843898) BUN (test code = 15 mg/dL 7-23 0917703429) GLUCOSE (test code = 85 mg/dL 70-110 4807830689) CREATININE (test code = 0.60 mg/dL 0.60-1.25 6247407961) TOTAL BILI (test code = 1.1 mg/dL 0.1-1.0 8128619103) CALCIUM (test code = 9.0 mg/dL 8.6-10.6 2800871367) T PROTEIN (test code = 7.8 g/dL 6.3-8.2 2723573920) ALBUMIN (test code = 4.0 g/dL 3.5-5.0 1085246346) ALK PHOS (test code = 166 U/L 34-122 H 1202486896) ALTv (test code = 42 U/L 5-50 1742-6) AST(SGOT) (test code = 32 U/L 13-40 2964011682) eGFR (test code = mL/min/1.73m2 9175108598) ARPITA (test code = ARPITA) Association of [...] tests). Lab Interpretation Abnormal (test code = 88602-9) [facility] 01:00:13 Test Item Value Reference Range Interpretation Comments LIPASE (test code = 8951362733) 57 U/L 0-220 Lab Interpretation (test code = Normal 37159-9) [facility]10 00:51:55 Test Item Value Reference Range Interpretation Comments APPEARANCE (test code = Turbid Clear A 6944650125) COLOR (test code = Yellow Yellow 3567009224) PH (test code = 4.8-8.0 8332841272) SP GRAVITY (test code = 1.003-1.030 2927496300) GLU U QUAL (test code = Normal Normal 9674341395) BLOOD (test code = 1+ Negative A 2161909443) KETONES (test code = 20 mg/dL Negative A 1373185820) PROTEIN (test code = 100 mg/dL Negative A 2887-8) UROBILIN (test code = 2.0 mg/dL Normal A 9542567965) BILIRUBIN (test code = Negative Negative 2387603935) NITRITE (test code = Positive Negative A 9585437837) LEUK CHAD (test code = 250/uL Negative A 5026499566) RBC/HPF (test code = See_Comment H [Autom ated message] 5654553717) The system [employer] generated this result transmit lester reference range : 0 - 3 HPF. The refe rence range was not u sed to interpret th is result as normal/abnormal . WBC/HPF (test code = >182 See_Comment H [Autom ated message] 6531485740) The system [employer] generated this result transmit lester reference range : 0 - 5 HPF. The refe rence range was not u sed to interpret th is result as normal/abnormal . BACTERIA (test code = Many Negative A 4636089972) MUCOUS (test code = Moderate Negative LPF A 6201664854) WBC CLUMPS (test code = See_Comment H [Au tomated message] 0678801302) The system [employer] generated this result transmit lester reference range : <=1 HPF. The refere nce range was not u sed to interpret th is result as normal/abnormal . Lab Interpretation (test Abnormal code = 67359-7) [facility] WITH [id number] 00:46:14 Test Item Value Reference Range Interpretation [...] RDW-SD (test code = 47.6 fL 38.5-51.6 87108-1) RDW-CV (test code = 15.2 % 12.1-15.4 788-0) PLT (test code = See_Comment H [Automated 777-3) message] The sy stem which generated this result transmitted reference range : 150 - 328 10*3/ ?L. The reference r boubacar was not used to interpret this result as normal/abnormal . MPV (test code = 9.4 fL 9.8-13.0 L 28317-0) NRBC/100 WBC (test See_Comment [Automat ed code = 4811522973) message] The system which generated this result transmitted reference range : 0.0 - 10.0 /100 WBCs. The refer ence range was not u sed to interpret th is result as normal/abnormal . NRBC x10^3 (test code <0.01 See_Comment [Auto mated = 9002819223) message] The s ystem which generated this result transmitted reference range : 10*3/?L. The reference range was not used to interpret this result as normal/abnormal . GRAN MAT (NEUT) % 61.3 % (test code = 770-8) IMM GRAN % (test code 0.70 % = 9561431407) LYMPH % (test code = 26.4 % 736-9) MONO % (test code = 9.9 % 5905-5) EOS % (test code = 1.3 % 713-8) BASO % (test code = 0.4 % 706-2) GRAN MAT x10^3(ANC) 6.39 10*3/uL 1.99-6.95 (test code = 1007441317) IMM GRAN x10^3 (test 0.07 10*3/uL 0.00-0.06 H code = 9993587563) LYMPH x10^3 (test code 2.75 10*3/uL 1.09-3.23 = 731-0) MONO x10^3 (test code 1.03 10*3/uL 0.36-1.02 H = 742-7) EOS x10^3 (test code = 0.14 10*3/uL 0.06-0.53 711-2) BASO x10^3 (test code 0.04 10*3/uL 0.01-0.09 = 704-7) Lab Interpretation Abnormal (test code = 52534-8) [facility] [id number] 13:03:00 Test Item Value Reference Range Interpretation Comments POC-GLUCOSE METER 140 mg/dL 70-110 H : TESTED A T [facility] 6720 (BEAKER) (test code = [facility], 1538) 14234: Police Booking Officer/Techni rose ID = [id number] for AARON COTTRELL POCT-GLUCOSE [id number] 09:15:00 Test Item Value Reference Range Interpretation Comments POC-GLUCOSE METER 142 mg/dL 70-110 H : TESTED A T [facility] 67[address] (BEAKER) (test code = [facility], 1538) 94178: Police Booking Officer/Techni rose ID = [id number] for AARON COTTRELL POCT-GLUCOSE [id number] 20:56:00 Test Item Value Reference Range Interpretation Comments POC-GLUCOSE METER 134 mg/dL 70-110 H : TESTED A T [facility] 67[address] (BEAKER) (test code = [facility], [facility]8) 27323: Police Booking Officer/Techni rose ID = [id number] for MG LANZA POCT-GLUCOSE [id number] 16:46:00 Test Item Value Reference Range Interpretation Comments POC-GLUCOSE METER 91 mg/dL 70-110 : TESTED A T [facility] 6720 (BEAKER) (test code = [facility], 1538) 26662: Police Booking Officer/Techni rose ID = [id number] for AARON CABRAL POCT-GLUCOSE [id number] 12:19:00 Test Item Value Reference Range Interpretation Comments POC-GLUCOSE METER 237 mg/dL 70-110 H : TESTED A T [facility] 6720 (BEAKER) (test code = [facility], [facility]8) 99847: Police Booking Officer/Techni rose ID = [id number] for AARON COTTRELL MR, EXTREMITY, LOWER, WITHOUT CONTRAST, [id number] 09:12:00FINAL REPORT MRI of the right and [...] Garza Verified Date/Time: 07/29/2019 09:12:01 Reading Location: [address] Ortho Consult Reading Room MR, EXTREMITY, LOWER, WITHOUT CONTRAST, [id number] 09:12:00FINAL REPORT MRI of the right and [...] Garzaort Verified Date/Time: 07/29/2019 09:12:01 Reading Location: [facility] [id number] Ortho Consult Reading Room POCT-GLUCOSE [id number] 08:47:00 Test Item Value Reference Range Interpretation Comments POC-GLUCOSE METER 264 mg/dL 70-110 H : TESTED A T [facility] 6720 (BEAKER) (test code = [facility], 1538) 51214: Police Booking Officer/Techni rose ID = [id number] for AARON COTTRELL ISLET CELL AB [id number] 07:43:00 Test Item Value Reference Range Interpretation Comments ISLET CELL AB Refer to individual AUTOVERIFICATION (test Islet Cell Ab code = 2556) and/or Islet Cell Ab Titer results. POCT-GLUCOSE [id number] 21:27:00 Test Item Value Reference Range Interpretation Comments POC-GLUCOSE METER 130 mg/dL 70-110 H : TESTED A T [facility] 6720 (BEAKER) (test code = [facility], 1538) 16434: Police Booking Officer/Techni rose ID = [id number] for FERNIE APARICIO BLOOD [id number] 13:00:00 Test Item Value Reference Range Interpretation Comments CULTURE (BEAKER) (test No growth in 5 days code = 1095) BLOOD [id number] 13:00:00 Test Item Value Reference Range Interpretation Comments CULTURE (BEAKER) (test No growth in 5 days code = 1095) POCT-GLUCOSE [id number] 12:57:00 Test Item Value Reference Range Interpretation Comments POC-GLUCOSE METER 138 mg/dL 70-110 H : TESTED A T [facility] ([facility]) (test code = [facility], 153) 33620: Police Booking Officer/Techni rose ID = [id number] for [place] LLIS, JUAN ANTONIO POCT-GLUCOSE [id number] 08:43:00 Test Item Value Reference Range Interpretation Comments POC-GLUCOSE METER 226 mg/dL 70-110 H : [facility] (test code = [facility], 153) 31240: Police Booking Officer/Techni rose ID = [id number] for [place] LLIS, JUAN ANTONIO POCT-GLUCOSE [id number] 21:11:00 Test Item Value Reference Range Interpretation Comments POC-GLUCOSE METER 254 mg/dL 70-110 H : Notified RN/MD: ([facility]) (test code = TESTED AT [place] [address] 153) [facility], [address]: Police Booking Officer/Techni rose ID = [id number] for FERNIE APARICIO POCT-GLUCOSE [id number] 21:02:00 Test Item Value Reference Range Interpretation Comments POC-GLUCOSE METER 177 mg/dL 70-110 H : [facility] ([facility]) (test code = [facility], 153) [address]: Police Booking Officer/Techni rose ID = [id number] for [place] LLIS, JUAN ANTONIO POCT-GLUCOSE [id number] 12:31:00 Test Item Value Reference Range Interpretation Comments POC-GLUCOSE METER 215 mg/dL 70-110 H : [facility] ([facility]) (test code = [facility], 153) [address]: Police Booking Officer/Techni rose ID = [id number] for [place] LLIS, JUAN ANTONIO WOUND CULTURE + GRAM [id number] 10:10:00 Test Item Value Reference Interpretation Comments Range CULTURE ([facility]) PROTEUS MIRABILIS A 1+ Pro teus (test [...] gram negative (BEAKER) (test code = rods 778521) GRAM STAIN RESULT 2+ gram positive (BEAKER) (test code = rods 057136) GRAM STAIN RESULT <1+ gram negative (BEAKER) (test code = coccobacilli 655820) GRAM STAIN RESULT 2+ gram positive (BEAKER) (test code = cocci in pairs [id number]) POCT-GLUCOSE [id number] 08:52:00 Test Item Value Reference Range Interpretation Comments POC-GLUCOSE METER 209 mg/dL 70-110 H : TESTED A T [facility] 6720 (BEAKER) (test code = [facility], 153) [address]: Police Booking Officer/Techni rose ID = [id number] for [place] LLIS, JUAN ANTONIO POCT-GLUCOSE [id number] 21:26:00 Test Item Value Reference Range Interpretation Comments POC-GLUCOSE METER 255 mg/dL 70-110 H : TESTED A T [facility] 6720 (BEAKER) (test code = [facility], 153) [address]: Police Booking Officer/Techni rose ID = [id number] for MG LANZA POCT-GLUCOSE [id number] 17:34:00 Test Item Value Reference Range Interpretation Comments POC-GLUCOSE METER 227 mg/dL 70-110 H : TESTED A T [facility] 6720 (BEAKER) (test code = [facility], 1538) [address]: Police Booking Officer/Techni rose ID = [id number] for CHAVEZ NNY, LETI POCT-GLUCOSE [id number] 11:28:00 Test Item Value Reference Range Interpretation Comments POC-GLUCOSE METER 282 mg/dL 70-110 H : TESTED A T [facility] 6720 (BEAKER) (test code = [facility], 1538) 49[address]: Police Booking Officer/Techni rose ID = [id number] for CHAVEZ NNY, LETI POCT-GLUCOSE [id number] 08:19:00 Test Item Value Reference Range Interpretation Comments POC-GLUCOSE METER 329 mg/dL 70-110 H : TESTED A T [facility] 6720 (BEAKER) (test code = [facility], 153) 78727: Police Booking Officer/Techni orse ID = [id number] for AARON COTTRELL POCT-GLUCOSE [id number] 21:32:00 Test Item Value Reference Range Interpretation Comments POC-GLUCOSE METER 275 mg/dL 70-110 H : TESTED A T [facility] 6720 (BEAKER) (test code = [facility] Damaso [facility], 1538) 92278: Police Booking Officer/Techni rose ID = [id number] for MG LANZA POCT-GLUCOSE [id number] 17:47:00 Test Item Value Reference Range Interpretation Comments POC-GLUCOSE METER 304 mg/dL 70-110 H : TESTED A T [facility] 6720 (BEAKER) (test code = [facility] Damaso [facility], 1538) 80937: Police Booking Officer/Techni rose ID = [id number] for SAM BLAIR, ERIN URINE [id number] 15:21:00 Test Item Value Reference Range Interpretation [...] Tobramycin (test code R = 25) POCT-GLUCOSE [id number] 12:16:00 Test Item Value Reference Range Interpretation Comments POC-GLUCOSE METER 337 mg/dL 70-110 H : TESTED A T [facility] 6720 (BEAKER) (test code = [facility] Damaso [facility], 1538) 46142: Police Booking Officer/Techni rose ID = [id number] for ERIN ARIZMENDI BASIC METABOLIC [id number] 10:39:00 Test Item Value Reference Range Interpretation [...] S NOT APPLICABLE FOR DIALYSIS PATIEN TS. Police Booking Officer ID - JANET FPOCT-GLUCOSE [id number] 08:29:00 Test Item Value Reference Range Interpretation Comments POC-GLUCOSE METER 395 mg/dL 70-110 H : TESTED A T [facility] 6720 (BEAKER) (test code = [facility] Petit [facility], 1538) 86445: Police Booking Officer/Techni rose ID = [id number] for ERIN ARIZMENDI CBC W/PLT COUNT & AUTO [id number] 06:40:00 Test Item Value Reference Range Interpretation [...] PERCENT (BEAKER) (test code = 2801) POCT-GLUCOSE [id number] 19:55:00 Test Item Value Reference Range Interpretation Comments POC-GLUCOSE METER 369 mg/dL 70-110 H : TESTED A T [facility] 6720 (BEAKER) (test code = [facility], 153) 95368: Police Booking Officer/Techni rose ID = [id number] for MG LANZA POCT-GLUCOSE [id number] 16:45:00 Test Item Value Reference Range Interpretation Comments POC-GLUCOSE METER 272 mg/dL 70-110 H : TESTED A T [facility] 6720 (BEAKER) (test code = [facility], 153) 25456: Police Booking Officer/Techni rose ID = [id number] for FRIEDA PALOMINO POCT-GLUCOSE [id number] 11:40:00 Test Item Value Reference Range Interpretation Comments POC-GLUCOSE METER 277 mg/dL 70-110 H : TESTED A T [facility] 6720 (BEAKER) (test code = [place], 1538) 938[address]: Police Booking Officer/Techni rose ID = [id number] for FRIEDA PALOMINO BASIC METABOLIC [id number] 10:22:00 Test Item Value Reference Range Interpretation [...] S NOT APPLICABLE FOR DIALYSIS PATIEN TS. Police Booking Officer ID - NTPLIPID [id number] 10:17:00 Test Item Value Reference Range Interpretation [...] Borderline 130-159 High 160-189 Very High >=190 Police Booking Officer ID - NTP POCT-GLUCOSE [id number] 08:28:00 Test Item Value Reference Range Interpretation Comments POC-GLUCOSE METER 388 mg/dL 70-110 H : TESTED A T [facility] 6720 (BEAKER) (test code = [place], 1538) 40[address]: Police Booking Officer/Techni rose ID = [id number] for AARON COTTRELL HEMOGLOBIN [id number] 07:54:00 Test Item Value Reference Range Interpretation Comments HEMOGLOBIN A1C (BEAKER) (test code = 10.4 % 4.3-6.1 H 368) CBC W/PLT COUNT & AUTO [id number] 05:56:00 Test Item Value Reference Range Interpretation [...] LYMPHOCYTES ABSOLUTE COUNT 2.03 K/ L 1.32-3.57 ([facility]) (test code = 414) MONOCYTES ABSOLUTE COUNT (BEAKER) 0.63 K/ L 0.30-0.82 (test code = 415) EOSINOPHILS ABSOLUTE COUNT 0.15 K/ L 0.04-0.54 (AKER) (test code = 416) BASOPHILS ABSOLUTE COUNT ([facility]) 0.03 K/ L 0.01-0.08 (test code = 417) IMMATURE GRANULOCYTES-RELATIVE 1 % 0-1 PERCENT ([facility]) (test code = 2801) POCT-GLUCOSE [id number] 23:47:00 Test Item Value Reference Range Interpretation Comments POC-GLUCOSE METER 359 mg/dL 70-110 H : Notified RN/MD: ([facility]) (test code = TESTED AT [place] [address] 153) [facility], [address]: Police Booking Officer/Techni rose ID = [id number] for LATHBRIDGE, MICHELINE ICE POCT-GLUCOSE [id number] 21:13:00 Test Item Value Reference Range Interpretation Comments POC-GLUCOSE METER 315 mg/dL 70-110 H : [facility] ([facility]) (test code = [facility], 153) 51424: Police Booking Officer/Techni rose ID = [id number] for Sm ith, Ana POCT-GLUCOSE [id number] 21:13:00 Test Item Value Reference Range Interpretation Comments POC-GLUCOSE METER 331 mg/dL 70-110 H : [facility] ([facility]) (test code = [facility], 153) 95092: Police Booking Officer/Techni rose ID = [id number] for RO DGERS, JAMECA POCT-GLUCOSE [id number] 10:30:00 Test Item Value Reference Range Interpretation Comments POC-GLUCOSE METER 341 mg/dL 70-110 H : [facility] ([facility]) (test code = [facility], 153) 97818: Police Booking Officer/Techni rose ID = [id number] for Sm ith, Ana CBC W/PLT COUNT & AUTO [id number] 08:48:00 Test Item Value Reference Range Interpretation [...] (BEAKER) (test code = Present 1371) HEMOGLOBIN [id number] 06:39:00 Test Item Value Reference Range Interpretation Comments HEMOGLOBIN A1C (BEAKER) (test code = 10.5 % 4.3-6.1 H 368) LIPID [id number] 04:57:00 Test Item Value Reference Range Interpretation [...] Very High >=190 Specimen moderately lipemicBASIC METABOLIC [id number] 04:56:00 Test Item Value Reference Range Interpretation [...] NOT APPLICABLE FOR DIALYSIS PATIEN TS. POCT-GLUCOSE [id number] 21:53:00 Test Item Value Reference Range Interpretation Comments POC-GLUCOSE METER > mg/dL 70-110 HH : Notified RN/MD: TESTED (FELICIANO) (test code = AT [address] 5365) [facility], 770 30: Police Booking Officer/Techni rose ID = [id number] for DESIRAE MENDOZA U/S, ABDOMINAL, [id number] 19:54:00Reason for exam:->Evaluation of PEOPLE GREETER shunt and for possible cyst or pseudocyst [...] MDReport Verified Date/Time: 07/22/2019 19:54:10 Reading Location: [address] Consult Reading Room POCT-GLUCOSE [id number] 19:34:00 Test Item Value Reference Range Interpretation Comments POC-GLUCOSE METER 474 mg/dL 70-110 HH : Notified RN/MD: (SAMMYBASHIR) (test code = TESTED AT [facility] 9122 1913) [facility], [address]: Police Booking Officer/Techni rose ID = [id number] for MARILYNN MAO URINALYSIS W/ REFLEX URINE [id number] 17:48:00 Test Item Value Reference Range Interpretation [...] = Moderate 517) SOURCE(BEAKER) (test code = 6427) CBC W/PLT COUNT & AUTO [id number] 17:38:00 Test Item Value Reference Range Interpretation [...] 3438) Received comment: User comments: Slide comments:POCT-GLUCOSE [id number] 16:27:00 Test Item Value Reference Range Interpretation Comments POC-GLUCOSE METER 424 mg/dL 70-110 HH : Notified RN/MD: (BEAKER) (test code = TESTED AT [facility] 5376 5377) [facility], [address]: Police Booking Officer/Techni rose ID = [id number] for AK INSONU, MARILYNN CT, BRAIN, WITHOUT [id number] 15:31:00FINAL REPORT CT, BRAIN, WITHOUT CONTRAST CLINICAL [...] MDReport Verified Date/Time: 07/22/2019 15:31:08 Reading Location: [address] Neuro Reading Room RAD, SHUNT [id number] 15:13:00Reason for exam:->concern for VPS malfunction FINAL [...] MDReport Verified Date/Time: 07/22/2019 15:13:54 Reading Location: [facility] Radiology Reading Room POCT-GLUCOSE METER 2019-07-22 11:38:00 Test Item Value Reference Range Interpretation Comments POC-GLUCOSE METER 394 mg/dL 70-110 H : TESTED A T [facility] 6720 [facility] (test code = [facility] Petit [facility], 1538) 748[address]: Police Booking Officer/Techni rose ID = [id number] for MARILYNN MAO HEMOGLOBIN [id number] 09:15:00 Test Item Value Reference Range Interpretation Comments HEMOGLOBIN A1C (BEAKER) (test code = 10.4 % 4.3-6.1 H 368) TSH/FREE T4 IF [id number] 07:54:00 Test Item Value Reference Range Interpretation Comments THYROID STIMULATING HORMONE 1.40 uIU/mL 0.35-4.94 (BEAKER) (test code = 772) POCT-GLUCOSE [id number] 07:48:00 Test Item Value Reference Range Interpretation Comments POC-GLUCOSE METER > mg/dL 70-110 HH : Notified RN/MD: TESTED (BEAKER) (test code = AT [facility] 6720 [facility] 1538) [facility], 770 30: Police Booking Officer/Techni rose ID = [id number] for MARILYNN SMITH BASIC METABOLIC [id number] 07:44:00 Test Item Value Reference Range Interpretation [...] NOT APPLICABLE FOR DIALYSIS PATIEN TS. LIPID [id number] 07:34:00 Test Item Value Reference Range Interpretation [...] H : TESTED A T [facility] 6720 ([facility]) (test code = [place], 1538) [address]: Police Booking Officer/Techni rose ID = [id number] for MATEUS LEANDERCHERYLE RAD, FOOT, 2 VIEWS, [id number] 22:28:00Reason for exam:->osteomyletitis FINAL REPORT TECHNIQUE: Two [...] [place] Verified Date/Time: 07/21/2019 22:28:25 Reading Location: [address] Consult Reading Room RAD, FOOT, 2 VIEWS, [id number] 22:28:00Reason for exam:->osteomyletitsFINAL REPORT TECHNIQUE: Two views [...] [place] Verified Date/Time: 07/21/2019 22:28:25 Reading Location: [address] Consult Reading Room POCT-GLUCOSE METER 2019-07-21 21:04:00 Test Item Value Reference Range Interpretation Comments POC-GLUCOSE METER 430 mg/dL 70-110 HH : Notified RN/MD: (FELICIANO) (test code = TESTED AT [facility] 6720 1538) [facility], [address]: Police Booking Officer/Techni rose ID = [id number] for ALBERTO OLIVER ERTAPENEM:SUSC:PT:ISOLATE:ORDQN:[id number] 16:48:00 Test Item Value Reference Range Interpretation Comments Culture: Urine (test >100,000 CFU/mL Proteus code = Culture: mirabilis 10,000 - Urine) 50,000 CFU/mL Skin [facility] CenterannERTAPENEM:SUSC:PT:ISOLATE:ORDQN:[id number] 16:48:00 Test Item Value Reference Range Interpretation Comments Proteus mirabilis (test Proteus mirabilis code = Proteus mirabilis) [facility] AND [id number] 16:48:00 Test Item Value Reference Range Interpretation Comments UA Nitrite (test code Negative (05/22/18 10:48 = UA Nitrite) AM) [facility] AND [id number] 16:48:00 Test Item Value Reference Range Interpretation Comments UA Bili (test code = Negative *NA*(05/22/18 UA Bili) 10:48 AM) [facility] AND [id number] 16:48:00 Test Item Value Reference Range Interpretation Comments UA Ketones (test code Negative *NA*(05/22/18 = UA Ketones) 10:48 AM) [facility] AND [id number] 16:48:00 Test Item Value Reference Range Interpretation Comments UA Blood (test code = Trace *ABN*(05/22/18 UA Blood) 10:48 AM) [facility] AND [id number] 16:48:00 Test Item Value Reference Range Interpretation Comments UA Urobilinogen (test code = UA 0.2 0.1-1.0 Urobilinogen) [facility] AND [id number] 16:48:00 Test Item Value Reference Range Interpretation Comments UA Leuk Est (test code Large *ABN*(05/22/18 = UA Leuk Est) 10:48 AM) [facility] AND [id number] 16:48:00 Test Item Value Reference Range Interpretation Comments UA Protein (test code Negative (05/22/18 10:48 = UA Protein) AM) [facility] AND [id number] 16:48:00 Test Item Value Reference Range Interpretation Comments UA Glucose (test code Negative (05/22/18 10:48 = UA Glucose) AM) [facility] AND [id number] 16:48:00 Test Item Value Reference Range Interpretation Comments UA pH (test code = UA pH) 7.0 1 5.0-8.0 [facility] AND [id number] 16:48:00 Test Item Value Reference Range Interpretation Comments UA Spec Grav (test code = UA Spec 1.015 1 Grav) [facility] AND [id number] 16:48:00 Test Item Value Reference Range Interpretation Comments UA Color (test code = Yellow *NA*(05/22/18 UA Color) 10:48 AM) [facility] AND [id number] 16:48:00 Test Item Value Reference Range Interpretation Comments UA Turbidity (test code = Clear (05/22/18 10:48 UA Turbidity) AM) [facility] AND [id number] 16:48:00 Test Item Value Reference Range Interpretation Comments UA Mucus (test code = UA Mucus) Few /LPF [facility] AND [id number] 16:48:00 Test Item Value Reference Range Interpretation Comments UA Bacteria (test code = UA Few /HPF Bacteria) [facility] AND [id number] 16:48:00 Test Item Value Reference Range Interpretation Comments UA RBC (test code = 0-2 /HPF See_Comment [Automa lester message] The UA RBC) system which ge nerated this result tra nsmitted reference range : <=2. The reference range was not used to interpr et this result as dany l/abnormal. [facility] AND [id number] 16:48:00 Test Item Value Reference Range Interpretation Comments UA Sq Epi (test code = None Seen (05/22/18 UA Sq Epi) 10:48 AM) [facility] AND [id number] 16:48:00 Test Item Value Reference Range Interpretation Comments UA WBC (test code = UA WBC) 51-100 /HPF [facility] [place] [id number] 11:57:00 Test Item Value Reference Range Interpretation Comments Antibody Scrn (test Negative (05/22/18 5:57 code = Antibody Scrn) AM) [facility] [id number] 11:57:00 Test Item Value Reference Range Interpretation Comments ABO/Rh (test code = ABO/Rh) AB POS [id number] 11:57:00 Test Item Value Reference Range Interpretation Comments PTT (test code = PTT) 33.4 s 22.9-35.8 [facility] H[id number] 11:57:00 Test Item Value Reference Range Interpretation Comments PT (test code = PT) 13.7 s 12.0-14.7 [facility]lan[id number] 11:57:00 Test Item Value Reference Range Interpretation Comments INR (test code = INR) 1.05 1 0.85-1.17 [id number] 10:50:01 Test Item Value Reference Range Interpretation Comments RDW (test code = RDW) 18.9 11.5-14.5 [facility]lan[id number] 10:50:01 Test Item Value Reference Range Interpretation Comments Hct (test code = Hct) 43.3 42.0-54.0 [id number] 10:50:01 Test Item Value Reference Range Interpretation Comments WBC (test code = WBC) 9.3 3.7-10.4 [id number] 10:50:01 Test Item Value Reference Range Interpretation Comments Hgb (test code = Hgb) 14.7 14.0-18.0 [facility][id number] 10:50:01 Test Item Value Reference Range Interpretation Comments RBC (test code = RBC) 5.36 4.70-6.10 [facility]landsCdhodprWGASNQVRZD8726-13-52 10:50:01 Test Item Value Reference Range Interpretation Comments Eosinophils # (test code 0.2 See_Comment [A utomated message] The = Eosinophils #) system whic h generated this result tra nsmitted reference range : <=0.5. The reference r boubacar was not used to int erpret this result as normal/abnormal . [id number] 10:50:01 Test Item Value Reference Range Interpretation Comments Basophils # (test code 0.1 See_Comment [Aut omated message] The = Basophils #) system which generated this result tra nsmitted reference range : <=0.2. The reference r boubacar was not used to int erpret this result as normal/abnormal . [facility]landsCkskvhvGZWKXLUULR4627-82-54 10:50:01 Test Item Value Reference Range Interpretation Comments Lymphocytes # (test code = Lymphocytes 1.8 1.0-5.5 #) [facility]lan[id number] 10:50:01 Test Item Value Reference Range Interpretation Comments Monocytes # (test code 0.9 See_Comment [Aut omated message] The = Monocytes #) system which generated this result tra nsmitted reference range : <=0.8. The reference r boubacar was not used to int erpret this result as normal/abnormal . [facility]landsTgeariaAOYUEPDUNV7782-66-12 10:50:01 Test Item Value Reference Range Interpretation Comments Neutrophils # (test code = Neutrophils 6.3 1.5-8.1 #) [facility]lan[id number] 10:50:01 Test Item Value Reference Range Interpretation Comments Eosinophils (test code = 2.0 See_Comment [A utomated message] The Eosinophils) system which ge nerated this result tra nsmitted reference range : <=4.0. The reference r boubacar was not used to int erpret this result as normal/abnormal . [id number] 10:50:01 Test Item Value Reference Range Interpretation Comments Segs (test code = Segs) 67.4 45.0-75.0 [facility]landsWsfayjuSOWJEYNRMJ9833-08-72 10:50:01 Test Item Value Reference Range Interpretation Comments Lymphocytes (test code = Lymphocytes) 19.9 20.0-40.0 [id number] 10:50:01 Test Item Value Reference Range Interpretation Comments Basophils (test code = 1.0 See_Comment [Aut omated message] The Basophils) system which ge nerated this result tra nsmitted reference range : <=1.0. The reference r boubacar was not used to int erpret this result as normal/abnormal . [facility]landsFakxwqgAOTXXNJOXY2084-03-10 10:50:01 Test Item Value Reference Range Interpretation Comments Monocytes (test code = Monocytes) 9.7 2.0-12.0 [facility]2018-11-08 10:50:01 Test Item Value Reference Range Interpretation Comments eGFR (test code = eGFR) 133 [facility]2018-11-08 10:50:01 Test Item Value Reference Range Interpretation Comments Calcium Lvl (test code = Calcium Lvl) 9.4 8.5-10.5 [facility]2018-11-08 10:50:01 Test Item Value Reference Range Interpretation Comments CO2 (test code = CO2) 28 24-32 [facility]2018-11-08 10:50:01 Test Item Value Reference Range Interpretation Comments BUN (test code = BUN) 14 7-22 [facility]2018-11-08 10:50:01 Test Item Value Reference Range Interpretation Comments Glucose Lvl (test code = Glucose Lvl) 89 70-99 [facility]2018-11-08 10:50:01 Test Item Value Reference Range Interpretation Comments Chloride Lvl (test code = Chloride Lvl) 104 95-109 [facility]2018-11-08 10:50:01 Test Item Value Reference Range Interpretation Comments Potassium Lvl (test code = Potassium 4.2 3.5-5.1 Lvl) [facility]2018-11-08 10:50:01 Test Item Value Reference Range Interpretation Comments Sodium Lvl (test code = Sodium Lvl) 137 135-145 [facility]2018-11-08 10:50:01 Test Item Value Reference Range Interpretation Comments Creatinine Lvl (test code = Creatinine 0.85 0.50-1.40 Lvl) [facility]2018-11-08 10:50:01 Test Item Value Reference Range Interpretation Comments AGAP (test code = AGAP) 9.2 10.0-20.0 [facility]landsFdyeqxiIDFONXDPLN5230-91-73 10:50:01 Test Item Value Reference Range Interpretation Comments ACT (TEG) Rapid (test code = ACT (TEG) 136 s 86-118 Rapid) [facility]lan[id number] 10:50:01 Test Item Value Reference Range Interpretation Comments Split Point Rapid (test code = Split 0.6 min Point Rapid) [facility]landsBruextfDIALNZLMJM4287-85-47 10:50:01 Test Item Value Reference Range Interpretation Comments R-time Rapid (test code = R-time 0.9 min 0.4-0.7 Rapid) [facility]landsQrlqokwTUMQMOEIQE3159-54-97 10:50:01 Test Item Value Reference Range Interpretation Comments K-time Rapid (test code = K-time 1.4 min 0.6-2.3 Rapid) [facility]landsQstabhtIHULLPZBYS9168-24-96 10:50:01 Test Item Value Reference Range Interpretation Comments Angle Rapid (test code = Angle 71 degrees 64-80 Rapid) [facility]landsIxzrulvZEOQCYEYHY6352-86-26 10:50:01 Test Item Value Reference Range Interpretation Comments G-value Rapid (test code = G-value 12.7 5.0-11.6 Rapid) [facility]landsWlecocsTLTKXFAQIE1655-35-40 10:50:01 Test Item Value Reference Range Interpretation Comments Max Amplitude Rapid (test code = Max 72 mm 52-71 Amplitude Rapid) [facility]landsIesygieQJKZJZOJWP8448-60-24 10:50:01 Test Item Value Reference Range Interpretation Comments Estimated % Lysis Rapid 0.1 See_Comment [Au tomated message] The (test code = Estimated syste m which generated % Lysis Rapid) this result t ransmitted reference range : <=7.5. The reference r boubacar was not used to int erpret this result as normal/abnormal . [facility]landsHebduhpIJNTZOWOVR1374-82-69 10:50:01 Test Item Value Reference Range Interpretation Comments Platelet (test code = Platelet) 367 133-450 [facility]landsIecokjuKXREHVRAVM5664-64-97 10:50:01 Test Item Value Reference Range Interpretation Comments MPV (test code = MPV) 7.8 7.4-10.4 [facility]landsXffwswoUXHLLNRLWR1420-40-55 10:50:01 Test Item Value Reference Range Interpretation Comments MCH (test code = MCH) 27.4 pg 27.0-31.0 [facility]landsIdltfvsAOTYAYKCIZ8039-64-71 10:50:01 Test Item Value Reference Range Interpretation Comments MCV (test code = MCV) 80.7 80.0-94.0 [facility]landsCiaqbigOUQIUGAPKF3176-18-53 10:50:01 Test Item Value Reference Range Interpretation Comments MCHC (test code = MCHC) 34.0 32.0-36.0 [facility]2018-05-08 05:42:00 Test Item Value Reference Range Interpretation Comments B/C Ratio (test code = B/C Ratio) 17 1 6-25 [facility]2018-05-08 05:42:00 Test Item Value Reference Range Interpretation Comments Globulin (test code = Globulin) 4.3 2.7-4.2 [facility]2018-05-08 05:42:00 Test Item Value Reference Range Interpretation Comments A/G Ratio (test code = A/G Ratio) 0.7 1 0.7-1.6 [facility]2018-05-08 05:42:00 Test Item Value Reference Range Interpretation Comments AGAP (test code = AGAP) 14.4 10.0-20.0 [facility]2018-05-08 05:42:00 Test Item Value Reference Range Interpretation Comments eGFR (test code = eGFR) 113 [facility]2018-05-08 05:42:00 Test Item Value Reference Range Interpretation Comments Alk Phos (test code = Alk Phos) 76 39-136 [facility]2018-05-08 05:42:00 Test Item Value Reference Range Interpretation Comments ALT (test code = ALT) 35 See_Comment [Auto mated message] The system which ge nerated this result transmit lester reference range : <=65. The reference range was not used to interpr et this result as dany l/abnormal. [facility]2018-05-08 05:42:00 Test Item Value Reference Range Interpretation Comments Albumin Lvl (test code = Albumin Lvl) 2.8 3.5-5.0 [facility]2018-05-08 05:42:00 Test Item Value Reference Range Interpretation Comments Total Protein (test code = Total 7.1 6.4-8.4 Protein) [facility] [facility]2018-05-[facility] 05:42:00 Test Item Value Reference Range Interpretation Comments Calcium Lvl (test code = Calcium Lvl) 8.7 8.5-10.5 [facility]2018-05-08 05:42:00 Test Item Value Reference Range Interpretation Comments AST (test code = AST) 18 See_Comment [Auto mated message] The system which ge nerated this result transmit lester reference range : <=37. The reference range was not used to interpr et this result as dany l/abnormal. [facility]2018-05-08 05:42:00 Test Item Value Reference Range Interpretation Comments Bili Total (test code = Bili Total) 0.3 0.2-1.3 [facility]2018-05-08 05:42:00 Test Item Value Reference Range Interpretation Comments Potassium Lvl (test code = Potassium 4.4 3.5-5.1 Lvl) [facility]2018-05-08 05:42:00 Test Item Value Reference Range Interpretation Comments Chloride Lvl (test code = Chloride Lvl) 109 95-109 [facility]2018-05-08 05:42:00 Test Item Value Reference Range Interpretation Comments CO2 (test code = CO2) 23 24-32 [facility]2018-05-08 05:42:00 Test Item Value Reference Range Interpretation Comments Glucose Lvl (test code = Glucose Lvl) 114 70-99 [facility]2018-05-08 05:42:00 Test Item Value Reference Range Interpretation Comments Creatinine Lvl (test code = Creatinine 1.01 0.50-1.40 Lvl) [facility]2018-05-08 05:42:00 Test Item Value Reference Range Interpretation Comments BUN (test code = BUN) 17 7-22 [facility]2018-05-08 05:42:00 Test Item Value Reference Range Interpretation Comments Sodium Lvl (test code = Sodium Lvl) 142 135-145 [facility]PumvajlWBTZGFTNUM4263-37-92 05:42:00 Test Item Value Reference Range Interpretation Comments Basophils (test code = 0.6 See_Comment [Aut omated message] The Basophils) system which ge nerated this result tra nsmitted reference range : <=1.0. The reference r boubacar was not used to int erpret this result as normal/abnormal . [facility]landsThkzzhdRGBLJAFHAW3054-33-07 05:42:00 Test Item Value Reference Range Interpretation Comments Segs-Bands # (test code = Segs-Bands #) 4.8 1.5-8.1 [facility]landsGyxezzkGOXTLXJLOM0216-66-65 05:42:00 Test Item Value Reference Range Interpretation Comments Monocytes # (test code 0.7 See_Comment [Aut omated message] The = Monocytes #) system which generated this result tra nsmitted reference range : <=0.8. The reference r boubacar was not used to int erpret this result as normal/abnormal . [facility]landsPtndbkmQFENIRXLKT0011-37-76 05:42:00 Test Item Value Reference Range Interpretation Comments Lymphocytes # (test code = Lymphocytes 1.9 1.0-5.5 #) [facility]landsUmlpvsoDRJERXFNHW4245-74-96 05:42:00 Test Item Value Reference Range Interpretation Comments Monocytes (test code = Monocytes) 9.4 2.0-12.0 [facility]landsBfstkphUHRHADYIFN3982-97-62 05:42:00 Test Item Value Reference Range Interpretation Comments Eosinophils # (test code 0.2 See_Comment [A utomated message] The = Eosinophils #) system whic h generated this result tra nsmitted reference range : <=0.5. The reference r boubacar was not used to int erpret this result as normal/abnormal . [facility]landsPqoygmpROXYUQRYZO2086-74-86 05:42:00 Test Item Value Reference Range Interpretation Comments Eosinophils (test code = 2.9 See_Comment [A utomated message] The Eosinophils) system which ge nerated this result tra nsmitted reference range : <=4.0. The reference r boubacar was not used to int erpret this result as normal/abnormal . [facility]landsFhoakxfGEVPFSUXQS5824-70-63 05:42:00 Test Item Value Reference Range Interpretation Comments Segs (test code = Segs) 62.2 45.0-75.0 [facility]landsGrxbykuGLDCJCJFGF5381-30-93 05:42:00 Test Item Value Reference Range Interpretation Comments Lymphocytes (test code = Lymphocytes) 24.9 20.0-40.0 [facility]landsXlbnvelOGIQKMWVMG3176-68-34 05:42:00 Test Item Value Reference Range Interpretation Comments MCH (test code = MCH) 27.5 pg 27.0-31.0 [facility]landsNjwxjjzOQPGBKKVBC4271-21-05 05:42:00 Test Item Value Reference Range Interpretation Comments MCV (test code = MCV) 85.3 80.0-94.0 [facility]landsOioosodIPAKBMRBFN1938-40-70 05:42:00 Test Item Value Reference Range Interpretation Comments Hct (test code = Hct) 43.9 42.0-54.0 [facility]landsUwnrsshECSWAKVUZX0635-73-59 05:42:00 Test Item Value Reference Range Interpretation Comments Hgb (test code = Hgb) 14.2 14.0-18.0 [facility]landsMbqugyaNOYCFKDWKN8888-70-80 05:42:00 Test Item Value Reference Range Interpretation Comments WBC (test code = WBC) 7.7 3.7-10.4 [facility]landsDwotknsPZZPSKJXHE2893-36-23 05:42:00 Test Item Value Reference Range Interpretation Comments RBC (test code = RBC) 5.15 4.70-6.10 [facility]landsPbahjglFSZTTHBMKX4586-20-98 05:42:00 Test Item Value Reference Range Interpretation Comments MPV (test code = MPV) 8.4 7.4-10.4 [facility]landsFqzptqdOQAMMEMOZF0219-43-52 05:42:00 Test Item Value Reference Range Interpretation Comments MCHC (test code = MCHC) 32.3 32.0-36.0 [facility]landsFhmypyeRBFSTGGORA2340-39-23 05:42:00 Test Item Value Reference Range Interpretation Comments RDW (test code = RDW) 17.3 11.5-14.5 [facility]landsSkitoslENBENJTAFS7560-62-73 05:42:00 Test Item Value Reference Range Interpretation Comments Platelet (test code = Platelet) 317 133-450 [facility]2018-05-07 09:36:00 Test Item Value Reference Range Interpretation Comments Globulin (test code = Globulin) 4.4 2.7-4.2 [facility]2018-05-07 09:36:00 Test Item Value Reference Range Interpretation Comments A/G Ratio (test code = A/G Ratio) 0.6 1 0.7-1.6 [facility]2018-05-07 09:36:00 Test Item Value Reference Range Interpretation Comments B/C Ratio (test code = B/C Ratio) 17 1 6-25 [facility]2018-05-07 09:36:00 Test Item Value Reference Range Interpretation Comments AGAP (test code = AGAP) 11.3 10.0-20.0 [facility]2018-05-07 09:36:00 Test Item Value Reference Range Interpretation Comments eGFR (test code = eGFR) 134 [facility]2018-05-07 09:36:00 Test Item Value Reference Range Interpretation Comments Creatinine Lvl (test code = Creatinine 0.84 0.50-1.40 Lvl) [facility]2018-05-07 09:36:00 Test Item Value Reference Range Interpretation Comments Sodium Lvl (test code = Sodium Lvl) 142 135-145 [facility]2018-05-07 09:36:00 Test Item Value Reference Range Interpretation Comments Glucose Lvl (test code = Glucose Lvl) 99 70-99 [facility]2018-05-07 09:36:00 Test Item Value Reference Range Interpretation Comments BUN (test code = BUN) 14 7-22 [facility]2018-05-07 09:36:00 Test Item Value Reference Range Interpretation Comments Alk Phos (test code = Alk Phos) 79 39-136 [facility]2018-05-07 09:36:00 Test Item Value Reference Range Interpretation Comments Bili Total (test code = Bili Total) 0.3 0.2-1.3 [facility]2018-05-07 09:36:00 Test Item Value Reference Range Interpretation Comments AST (test code = AST) 14 See_Comment [Auto mated message] The system which ge nerated this result transmit lester reference range : <=37. The reference range was not used to interpr et this result as dany l/abnormal. [place] 914108-05-07 09:36:00 Test Item Value Reference Range Interpretation Comments ALT (test code = ALT) 43 See_Comment [Auto mated message] The system which ge nerated this result transmit lester reference range : <=65. The reference range was not used to interpr et this result as dany l/abnormal. [facility]2018-05-07 09:36:00 Test Item Value Reference Range Interpretation Comments Total Protein (test code = Total 7.1 6.4-8.4 Protein) [place] 914108-05-07 09:36:00 Test Item Value Reference Range Interpretation Comments Albumin Lvl (test code = Albumin Lvl) 2.7 3.5-5.0 [place] 914108-05-07 09:36:00 Test Item Value Reference Range Interpretation Comments Calcium Lvl (test code = Calcium Lvl) 9.2 8.5-10.5 [facility]2018-05-07 09:36:00 Test Item Value Reference Range Interpretation Comments CO2 (test code = CO2) 21 24-32 [place] 914108-05-07 09:36:00 Test Item Value Reference Range Interpretation Comments Potassium Lvl (test code = Potassium 4.3 3.5-5.1 Lvl) [facility]2018-05-07 09:36:00 Test Item Value Reference Range Interpretation Comments Chloride Lvl (test code = Chloride Lvl) 114 95-109 [facility]PvbslzpZBQBPIUVVN5904-41-13 09:36:00 Test Item Value Reference Range Interpretation Comments MCHC (test code = MCHC) 32.5 32.0-36.0 [place] 437668-05-07 09:36:00 Test Item Value Reference Range Interpretation Comments RDW (test code = RDW) 17.5 11.5-14.5 [facility]landsLntltliCWZCJFCHMX2986-92-67 09:36:00 Test Item Value Reference Range Interpretation Comments Platelet (test code = Platelet) 400 133-450 [facility]landsRhvmaimJKSCLJVFUG9647-01-35 09:36:00 Test Item Value Reference Range Interpretation Comments MPV (test code = MPV) 8.5 7.4-10.4 [facility]landsYnrxwktGBSLHHLKMS0552-72-64 09:36:00 Test Item Value Reference Range Interpretation Comments WBC (test code = WBC) 6.6 3.7-10.4 [facility]landsOdxjiikWYFHEVIEVL0570-44-81 09:36:00 Test Item Value Reference Range Interpretation Comments RBC (test code = RBC) 5.17 4.70-6.10 [facility]landsLqcpvxtBGYXGLEBXJ7770-92-27 09:36:00 Test Item Value Reference Range Interpretation Comments MCV (test code = MCV) 86.1 80.0-94.0 [facility]landsScmdemuHNUJGBGRAB4677-05-55 09:36:00 Test Item Value Reference Range Interpretation Comments Hct (test code = Hct) 44.5 42.0-54.0 [facility]landsCnoayrbVEOVGEXYLJ4825-06-27 09:36:00 Test Item Value Reference Range Interpretation Comments MCH (test code = MCH) 28.0 pg 27.0-31.0 [facility]landsKkfgvhcQVAXARNIYY0261-77-88 09:36:00 Test Item Value Reference Range Interpretation Comments Hgb (test code = Hgb) 14.5 14.0-18.0 [facility]landsBlkqocuNJFVHAACIW6515-35-87 09:36:00 Test Item Value Reference Range Interpretation Comments Lymphocytes # (test code = Lymphocytes 1.7 1.0-5.5 #) [facility]landsFiidiwsZIIBJPLNNI9371-00-52 09:36:00 Test Item Value Reference Range Interpretation Comments Monocytes # (test code 0.7 See_Comment [Aut omated message] The = Monocytes #) system which generated this result tra nsmitted reference range : <=0.8. The reference r boubacar was not used to int erpret this result as normal/abnormal . [facility]landsKegbmdjTVTHMWZOVF4234-84-96 09:36:00 Test Item Value Reference Range Interpretation Comments Eosinophils # (test code 0.2 See_Comment [A utomated message] The = Eosinophils #) system whic h generated this result tra nsmitted reference range : <=0.5. The reference r boubacar was not used to int erpret this result as normal/abnormal . [facility]landsGuqihasQTPLSAYWCK1930-55-68 09:36:00 Test Item Value Reference Range Interpretation Comments Lymphocytes (test code = Lymphocytes) 26.1 20.0-40.0 [facility]landsCvqhflnFMCHXXIQEN7119-84-18 09:36:00 Test Item Value Reference Range Interpretation Comments Segs (test code = Segs) 59.3 45.0-75.0 [facility]landsOomwmbrKYCYYWVCSV6063-73-47 09:36:00 Test Item Value Reference Range Interpretation Comments Basophils (test code = 0.8 See_Comment [Aut omated message] The Basophils) system which ge nerated this result tra nsmitted reference range : <=1.0. The reference r boubacar was not used to int erpret this result as normal/abnormal . [facility]landsEeoeuvbLCEENOJUOE8213-79-99 09:36:00 Test Item Value Reference Range Interpretation Comments Monocytes (test code = Monocytes) 10.5 2.0-12.0 [facility]landsTzltfrpCDKHDANULY2428-65-94 09:36:00 Test Item Value Reference Range Interpretation Comments Eosinophils (test code = 3.3 See_Comment [A utomated message] The Eosinophils) system which ge nerated this result tra nsmitted reference range : <=4.0. The reference r boubacar was not used to int erpret this result as normal/abnormal . [facility]landsPfternmYEMSWLIIQQ1348-19-26 09:36:00 Test Item Value Reference Range Interpretation Comments Segs-Bands # (test code = Segs-Bands #) 3.9 1.5-8.1 [facility]IolqvrjWBPXRTCCYJ6739-54-58 21:02:00 Test Item Value Reference Range Interpretation Comments Vanco Tr TND (test code = Vanco Tr 15:30pm TND) [facility]landsYpmdoetYCPYGWXDRP7764-21-86 21:02:00 Test Item Value Reference Range Interpretation Comments Vanco Tr (test code = Vanco Tr) 9.1 [facility]2018-05-06 07:07:00 Test Item Value Reference Range Interpretation Comments Glucose Lvl (test code = Glucose Lvl) 74 70-99 [place] 914108-05-06 07:07:00 Test Item Value Reference Range Interpretation Comments BUN (test code = BUN) 12 7-22 [place] 914108-05-06 07:07:00 Test Item Value Reference Range Interpretation Comments Creatinine Lvl (test code = Creatinine 0.75 0.50-1.40 Lvl) [place] 914108-05-06 07:07:00 Test Item Value Reference Range Interpretation Comments eGFR (test code = eGFR) 140 [place] 914108-05-06 07:07:00 Test Item Value Reference Range Interpretation Comments Albumin Lvl (test code = Albumin Lvl) 2.9 3.5-5.0 [place] 914108-05-06 07:07:00 Test Item Value Reference Range Interpretation Comments Globulin (test code = Globulin) 4.4 2.7-4.2 [place] 914108-05-06 07:07:00 Test Item Value Reference Range Interpretation Comments A/G Ratio (test code = A/G Ratio) 0.7 1 0.7-1.6 [place] 914108-05-06 07:07:00 Test Item Value Reference Range Interpretation Comments Bili Total (test code = Bili Total) 0.4 0.2-1.3 [place] 914108-05-06 07:07:00 Test Item Value Reference Range Interpretation Comments Alk Phos (test code = Alk Phos) 71 39-136 [place] 914108-05-06 07:07:00 Test Item Value Reference Range Interpretation Comments AST (test code = AST) 15 See_Comment [Auto mated message] The system which ge nerated this result transmit lester reference range : <=37. The reference range was not used to interpr et this result as dany l/abnormal. [place] 914108-05-06 07:07:00 Test Item Value Reference Range Interpretation Comments ALT (test code = ALT) 28 See_Comment [Auto mated message] The system which ge nerated this result transmit lester reference range : <=65. The reference range was not used to interpr et this result as dany l/abnormal. [place] 914108-05-06 07:07:00 Test Item Value Reference Range Interpretation Comments Potassium Lvl (test code = Potassium 4.4 3.5-5.1 Lvl) [facility]2018-05-06 07:07:00 Test Item Value Reference Range Interpretation Comments Sodium Lvl (test code = Sodium Lvl) 147 135-145 [facility]2018-05-06 07:07:00 Test Item Value Reference Range Interpretation Comments CO2 (test code = CO2) 25 24-32 [facility]2018-05-06 07:07:00 Test Item Value Reference Range Interpretation Comments Chloride Lvl (test code = Chloride Lvl) 114 95-109 [facility]2018-05-06 07:07:00 Test Item Value Reference Range Interpretation Comments B/C Ratio (test code = B/C Ratio) 16 1 6-25 [place] 914108-05-06 07:07:00 Test Item Value Reference Range Interpretation Comments Calcium Lvl (test code = Calcium Lvl) 8.7 8.5-10.5 [facility]2018-05-06 07:07:00 Test Item Value Reference Range Interpretation Comments AGAP (test code = AGAP) 12.4 10.0-20.0 [facility]2018-05-06 07:07:00 Test Item Value Reference Range Interpretation Comments Total Protein (test code = Total 7.3 6.4-8.4 Protein) [facility]landsZdvmfkcYFVVBTDPGG9836-25-41 07:07:00 Test Item Value Reference Range Interpretation Comments Platelet (test code = Platelet) 345 133-450 [facility]landsIafszzzODDCAWBBCS4814-44-06 07:07:00 Test Item Value Reference Range Interpretation Comments MPV (test code = MPV) 8.7 7.4-10.4 [facility]landsZgagllmTKUHQDHSTA4947-52-67 07:07:00 Test Item Value Reference Range Interpretation Comments WBC (test code = WBC) 6.9 3.7-10.4 [facility]landsLdsgfzlZRCSYRJKLC0182-31-47 07:07:00 Test Item Value Reference Range Interpretation Comments RBC (test code = RBC) 5.30 4.70-6.10 [place] 437668-05-06 07:07:00 Test Item Value Reference Range Interpretation Comments MCHC (test code = MCHC) 32.8 32.0-36.0 [facility]landsEsgsbouCHUSGIJBTL1108-67-05 07:07:00 Test Item Value Reference Range Interpretation Comments MCH (test code = MCH) 27.9 pg 27.0-31.0 [facility]landsSqghoflVVWCYWVGGG4355-52-47 07:07:00 Test Item Value Reference Range Interpretation Comments Hgb (test code = Hgb) 14.8 14.0-18.0 [facility]landsZhgvfzdWERGJTTLSY2326-17-11 07:07:00 Test Item Value Reference Range Interpretation Comments MCV (test code = MCV) 85.0 80.0-94.0 [facility]landsJutloddQYJFLTLYBB5286-65-16 07:07:00 Test Item Value Reference Range Interpretation Comments Hct (test code = Hct) 45.1 42.0-54.0 [facility]landsGvotxspIBNMPZMFXS8069-95-47 07:07:00 Test Item Value Reference Range Interpretation Comments RDW (test code = RDW) 17.5 11.5-14.5 [facility]landsKwibowdVGNPWCGVNY8425-48-03 07:07:00 Test Item Value Reference Range Interpretation Comments Eosinophils # (test code 0.2 See_Comment [A utomated message] The = Eosinophils #) system whic h generated this result tra nsmitted reference range : <=0.5. The reference r boubacar was not used to int erpret this result as normal/abnormal . [facility]landsHhjtylpOHZQQYBHXR9906-33-13 07:07:00 Test Item Value Reference Range Interpretation Comments Lymphocytes # (test code = Lymphocytes 2.0 1.0-5.5 #) [facility]landsQjqobiyNQJMGZOTQF0394-49-19 07:07:00 Test Item Value Reference Range Interpretation Comments Monocytes # (test code 0.7 See_Comment [Aut omated message] The = Monocytes #) system which generated this result tra nsmitted reference range : <=0.8. The reference r boubacar was not used to int erpret this result as normal/abnormal . [facility]landsZozkkvmPISXHNMXDR9977-57-66 07:07:00 Test Item Value Reference Range Interpretation Comments Eosinophils (test code = 2.4 See_Comment [A utomated message] The Eosinophils) system which ge nerated this result tra nsmitted reference range : <=4.0. The reference r boubacar was not used to int erpret this result as normal/abnormal . [facility]landsFrrgkswGGPZEHWYMO6821-64-08 07:07:00 Test Item Value Reference Range Interpretation Comments Basophils (test code = 0.6 See_Comment [Aut omated message] The Basophils) system which ge nerated this result tra nsmitted reference range : <=1.0. The reference r boubacar was not used to int erpret this result as normal/abnormal . [facility]landsSykjmpmLPWEAMZVAZ7769-81-28 07:07:00 Test Item Value Reference Range Interpretation Comments Segs-Bands # (test code = Segs-Bands #) 4.0 1.5-8.1 [facility]landsBnnloomVAQWZFSSGX5159-22-23 07:07:00 Test Item Value Reference Range Interpretation Comments Monocytes (test code = Monocytes) 10.4 2.0-12.0 [facility]landsPwfmllpJSZJUCQYBN3527-00-52 07:07:00 Test Item Value Reference Range Interpretation Comments RBC Morph (test code = Normal (11/17/17 2:07 AM) RBC Morph) [facility]landsRcncyjsVJFNGPMGBC8437-85-57 07:07:00 Test Item Value Reference Range Interpretation Comments Segs (test code = Segs) 58.1 45.0-75.0 [facility]landsRdfsrulHLTBSPEUZO4405-20-66 07:07:00 Test Item Value Reference Range Interpretation Comments Plt Morph (test code = Normal (11/17/17 2:07 AM) Plt Morph) [facility]landsDdwnlcjRPULLKZFVA7403-31-61 07:07:00 Test Item Value Reference Range Interpretation Comments Lymphocytes (test code = Lymphocytes) 28.5 20.0-40.0 [facility]landsBjsilsuRHCPBKZKGR3774-27-82 16:07:00 Test Item Value Reference Range Interpretation Comments Basophils # (test code 0.1 See_Comment [Aut omated message] The = Basophils #) system which generated this result tra nsmitted reference range : <=0.2. The reference r boubacar was not used to int erpret this result as normal/abnormal . [facility]landsRvaxfahPAWUACBPQE0582-04-42 16:07:00 Test Item Value Reference Range Interpretation Comments Polychrom (test code = Moderate *ABN*(11/16/17 Polychrom) 11:07 AM) [facility]wwoxagAOJNQWYLFB8708-33-32 06:43:00 Test Item Value Reference Range Interpretation Comments Vanco Tr TND (test code = Vanco Tr TND) * [facility] HospitalKsqeiasKACSXKQLVL2846-87-02 06:43:00 Test Item Value Reference Range Interpretation Comments Vanco Tr (test code = Vanco Tr) 22.3 [facility]2018-05-04 11:45:00 Test Item Value Reference Range Interpretation Comments Magnesium Lvl (test code = Magnesium 2.3 1.8-2.4 Lvl) [facility]2018-05-04 11:45:00 Test Item Value Reference Range Interpretation Comments Phosphorus (test code = Phosphorus) 3.5 2.5-4.5 [facility]landsBwofqmvBBWBUBZBQP9466-02-24 11:45:00 Test Item Value Reference Range Interpretation Comments PT (test code = PT) 14.0 s 12.0-14.7 [facility]landsBgsohavAXDRRSSGAP4208-78-51 11:45:00 Test Item Value Reference Range Interpretation Comments PTT (test code = PTT) 37.6 s 22.9-35.8 [facility]landsVdfmqqqHWSOBZLBYD8602-08-18 11:45:00 Test Item Value Reference Range Interpretation Comments INR (test code = INR) 1.08 1 0.85-1.17 [facility]SfwoxilZWBLESKQZY7853-48-17 11:45:00 Test Item Value Reference Range Interpretation Comments C-REACTIVE PROTEIN (test code = 13.1 C-REACTIVE PROTEIN) [facility] LancasterBxfltgvDFHMAQJAJJ8976-12-94 11:45:00 Test Item Value Reference Range Interpretation Comments Prealbumin (test code = Prealbumin) 25.2 18.0-45.0 [facility]2018-05-04 03:06:00 Test Item Value Reference Range Interpretation Comments Lactic Acid Lvl (test code = Lactic 0.9 0.5-2.2 Acid Lvl) [facility]landsZeexkicULOBLGDGXJ2791-05-42 03:06:00 Test Item Value Reference Range Interpretation Comments Sed Rate (test code = 5 See_Comment [Auto mated message] The Sed Rate) system which ge nerated this result transmit lester reference range : <=15. The reference range was not used to interpr et this result as dany l/abnormal. [facility] LancasterCxulcdsKMESIBRJIG2318-97-20 03:06:00 Test Item Value Reference Range Interpretation Comments C-REACTIVE PROTEIN (test code = 15.8 C-REACTIVE PROTEIN) [facility]landsHvfgvwjVFTQLKMWTE3407-53-06 00:44:00 Test Item Value Reference Range Interpretation Comments PT (test code = PT) 13.0 s 12.0-14.7 [facility]landsIbumqjdGFMLDYWIJP1547-94-17 00:44:00 Test Item Value Reference Range Interpretation Comments INR (test code = INR) 0.98 1 0.85-1.17 [facility]landsUuzjeznBCETRARNZP5557-17-90 00:44:00 Test Item Value Reference Range Interpretation Comments PTT (test code = PTT) 33.2 s 22.9-35.8 [facility] [id number] 23:51:00 Test Item Value Reference Range Interpretation Comments Antibody Scrn (test Negative (11/14/17 6:51 code = Antibody Scrn) PM) [facility] [id number] 23:51:00 Test Item Value Reference Range Interpretation Comments ABO/Rh (test code = ABO/Rh) AB POS [facility] AND [id number] 23:35:00 Test Item Value Reference Range Interpretation Comments UA Urobilinogen (test code = UA 0.2 0.1-1.0 Urobilinogen) [facility] AND [id number] 23:35:00 Test Item Value Reference Range Interpretation Comments UA Nitrite (test code Negative (11/14/17 6:35 = UA Nitrite) PM) [facility] AND [id number] 23:35:00 Test Item Value Reference Range Interpretation Comments UA Glucose (test code Negative (11/14/17 6:35 = UA Glucose) PM) [facility] AND [id number] 23:35:00 Test Item Value Reference Range Interpretation Comments UA Ketones (test code Negative *NA*(11/14/17 = UA Ketones) 6:35 PM) [facility] AND [id number] 23:35:00 Test Item Value Reference Range Interpretation Comments UA Bili (test code = Negative *NA*(11/14/17 UA Bili) 6:35 PM) [facility] AND [id number] 23:35:00 Test Item Value Reference Range Interpretation Comments UA Blood (test code = Trace *ABN*(11/14/17 UA Blood) 6:35 PM) [facility] AND [id number] 23:35:00 Test Item Value Reference Range Interpretation Comments UA Leuk Est (test code Small *ABN*(11/14/17 6:35 = UA Leuk Est) PM) [facility] [id number] 23:35:00 Test Item Value Reference Range Interpretation Comments UA Spec Grav (test code = UA Spec 1.020 1 Grav) [facility] [id number] 23:35:00 Test Item Value Reference Range Interpretation Comments UA pH (test code = UA pH) 6.0 1 5.0-8.0 [facility] [id number] 23:35:00 Test Item Value Reference Range Interpretation Comments UA Color (test code = Yellow *NA*(11/14/17 6:35 UA Color) PM) [facility] [id number] 23:35:00 Test Item Value Reference Range Interpretation Comments UA Protein (test code = Trace *ABN*(11/14/17 UA Protein) 6:35 PM) [facility] [id number] 23:35:00 Test Item Value Reference Range Interpretation Comments UA Turbidity (test code Slight Cloudy (11/14/17 = UA Turbidity) 6:35 PM) [facility] [id number] 23:35:00 Test Item Value Reference Range Interpretation Comments UA Hyal Cast 0-2 (11/14/17 6:35 See_Comment [Automated message] (test code = UA PM) The system w [facility] Hyal Cast) generated this result transmitted ref erence range: <=2. The reference range was not used to int erpret this result as normal/abnormal . [facility] [id number] 23:35:00 Test Item Value Reference Range Interpretation Comments UA Bacteria (test code = UA Occasional /HPF Bacteria) [facility] [id number] 23:35:00 Test Item Value Reference Range Interpretation Comments UA RBC (test code 11-20 /HPF See_Comment [Automate d message] The = UA RBC) system which ge nerated this result tra nsmitted reference range : <=2. The reference range was not used to interpr et this result as normal/abnormal . [facility] [id number] 23:35:00 Test Item Value Reference Range Interpretation Comments UA Sq Epi (test code = UA Sq Occasional /LPF Epi) [facility] AND [id number] 23:35:00 Test Item Value Reference Range Interpretation Comments UA WBC (test code = UA WBC) 51-100 /HPF [id number] 23:20:00 Test Item Value Reference Range Interpretation Comments Basophils # (test code 0.1 See_Comment [Aut omated message] The = Basophils #) system which generated this result tra nsmitted reference range : <=0.2. The reference r boubacar was not used to int erpret this result as normal/abnormal . [id number] 23:20:00 Test Item Value Reference Range Interpretation Comments Polychrom (test code = Polychrom) Slight [id number] 23:20:00 Test Item Value Reference Range Interpretation Comments Plt Morph (test code = Normal (11/14/17 6:20 PM) Plt Morph) [facility] [id number] 16:22:00 Test Item Value Reference Range Interpretation Comments CULTURE (BEAKER) (test No growth in 5 days code = 1095) BLOOD [id number] 16:22:00 Test Item Value Reference Range Interpretation [...] Normal 762) CBC W/PLT COUNT & AUTO [id number] 22:28:00 Test Item Value Reference Range Interpretation [...] 0.00-0.20 (test code = 417) 0.000.520.000.000.000.00BASI METABOLIC [id number] 11:11:00 Test Item Value Reference Range Interpretation [...] NOT APPLICABLE FOR DIALYSIS PATIEN TS. URINE [id number] 09:56:00 Test Item Value Reference Range Interpretation Comments CULTURE (BEAKER) (test <10,000 col/mL skin code = 1095) marilee COMPREHENSIVE METABOLIC [id number] 08:49:00 Test Item Value Reference Range Interpretation [...] PATIEN TS. CBC W/PLT COUNT & AUTO [id number] 08:46:00 Test Item Value Reference Range Interpretation [...] 0.00-0.20 (test code = 417) 0.00URINALYSIS W/ [id number] 20:36:00 Test Item Value Reference Range Interpretation [...] 520) 182 /HPF SOURCE(BEAKER) (test code = 3197) BASIC METABOLIC [id number] 17:00:00 Test Item Value Reference Range Interpretation [...] Specimen slightly ictericCBC W/PLT COUNT & AUTO [id number] 12:18:00 Test Item Value Reference Range Interpretation [...]
[2021-10-05 20:49] LABS: Absolute Lymphocytes (CBC) 2.5 K/uL (0.7-4.9); MPV 8.5 fL (7.6-11.3); RBC Red Blood Cell Count 6.13 M/uL (4.33-5.43)
--- NOTE | 2021-10-05 21:10 | ER ---
Nurse's Notes [facility] Name: Roland Feldman Jr Age: 36 yrs Sex: Male : 1985 Arrival Date: 10/05/2021 Time: 19:17 Bed 15 Private MD: Diagnosis: Headache-PROSTHETIC DENTIST SHUNT, STATUS;Obesity, unspecified-SPINA BIFIDA;Elevated white blood cell count Presentation: 10/05 19:36 Chief complaint: Patient states: headache x 1 month. Coronavirus screen: Vaccine sv1 status: Patient reports receiving the 2nd dose of the covid vaccine. Client denies travel out of the [place] in the last 14 days. At this time, the client does not indicate any symptoms associated with coronavirus-19. Ebola Screen: Patient denies exposure to infectious person. No symptoms or risks identified at this time. Initial Sepsis Screen: Does the patient meet any 2 criteria? No. Patient's initial sepsis screen is negative. Does the patient have a suspected source of infection? No. Patient's initial sepsis screen is negative. Risk Assessment: Do you want to hurt yourself or someone else? Patient reports no desire to harm self or others. Onset of symptoms was September 07, 2021. 19:36 Method Of Arrival: EMS: [facility] sv1 19:36 Acuity: YUKI 3 sv1 Triage Assessment: 19:36 Headache History: Denies prior headaches. General: Appears distressed, obese, Behavior sv1 is cooperative. Pain: Pain currently is 10 out of 10 on a pain scale. Neuro: No deficits noted. 22:57 Pain: Pain began gradually, one month Also complains of. sv1 Historical: - Allergies: 22:58 Amoxicillin; sv1 22:58 Ciprofloxacin; sv1 22:58 CLAVULANIC ACID; sv1 22:58 Doxycycline; sv1 22:58 Demerol; sv1 22:58 Bactrim; sv1 22:58 Levofloxacin; sv1 22:58 Morphine; sv1 22:58 PENICILLINS; sv1 22:58 Toradol; sv1 22:58 TRIMETHOPRIM; sv1 22:58 Vancomycin; sv1 22:58 Zofran; sv1 - Home Meds: 22:58 Celexa 20 mg Oral tab 1 tab once daily [Active]; fentanyl 25 mcg/hr Topical pt72 1 sv1 patch every 72 hours [Active]; Pepcid 20 mg Oral tab 1 tab once daily [Active]; Percocet 10-325 mg Oral tab 1 tab every 6 hours [Active]; Reglan 10 mg Oral tab 1 tab once daily [Active]; Wellbutrin SR 150 mg Oral TbER 1 tab 2 times per day [Active]; - PMHx: 22:58 Asthma; Cerebral Palsy; decubitus ulcers on feet; cluster headaches; GERD; sv1 Hypertension; Hydrocephalus; spina bifida; - Immunization history:: Adult Immunizations up to date. - Social history:: Smoking status: Patient reports the use of cigarette tobacco products. - Family history:: not pertinent. Screenin:45 Abuse screen: Denies threats or abuse. Nutritional screening: No deficits noted. sv1 Tuberculosis screening: No symptoms or risk factors identified. Fall Risk No fall in past 12 months (0 pts). No secondary diagnosis (0 pts). IV access (20 points). Ambulatory Aid- Crutches/Cane/Walker (15 pts). Gait- Impaired (20 pts.). Mental Status- Oriented to own ability (0 pts). Total Smith Fall Scale indicates High Risk Score (45 or more points). Assessment: 19:57 Reassessment: Oriented the patient to the room. Several attempts were made to start an sv1 IV on the patient. Ultra sound guided iv will be attempted. . 22:55 Reassessment: The patient is being ransferred to [facility]. Report was given sv1 to the transfer team Report was called to Anali DISLA.. Vital Signs: 19:36 BP 146 / 102 LA Supine (auto/reg); Pulse 99 MON; Resp 14 S; Temp 98.8; Pulse Ox 98% on sv1 R/A; Weight 127.46 kg (R); Height 4 ft. 11 in. (149.86 cm) (R); Pain 10/10; 19:44 BP 146 / 102 LA Supine (auto/reg); Pulse 99 MON; Resp 14 S; Temp 98.9(O); Pulse Ox 98% sv1 on R/A; 19:36 Body Mass Index 56.75 (127.46 kg, 149.86 cm) sv1 Heber Coma Score: 19:38 Eye Response: spontaneous(4). Verbal Response: oriented(5). Motor Response: obeys scott commands(6). Total: 15. ED Course: 19:17 Patient arrived in ED. ag3 19:21 Clifton Quezada MD is Attending Physician. scott 19:35 Kiran Bundy, RN is Primary Nurse. sv1 19:36 Arm band placed on right wrist. sv1 19:42 Triage completed. sv1 19:45 Patient has correct armband on for positive identification. Bed in low position. Call sv1 light in reach. Side rails up X2. 19:56 Urine Culture Sent. sv1 20:50 Missed attempt(s): 20 gauge in right forearm. Bleeding controlled, band aid applied, bb catheter tip intact. Missed attempt(s): 18 gauge in left antecubital area. Bleeding controlled, band aid applied, catheter tip intact. 21:47 Shuntogram XRAY In Process Unspecified. EDMS 21:48 CT Head Brain wo Cont In Process Unspecified. EDMS 21:50 Urine Culture Sent. sv1 22:04 COVID-19/FLU A+B (Document "Date of Onset" if Symptomatic) Sent. sv1 22:56 No provider procedures requiring assistance completed. Patient transferred, IV remains sv1 in place. Administered Medications: 22:53 Drug: Dilaudid (HYDROmorphone) 1 mg Route: IVP; Site: left subclavian; sv1 Outcome: 21:10 ER care complete, transfer ordered by . [facility] 22:56 Transferred by ground EMS to [facility]. sv1 22:56 Condition: good 22:56 Instructed on the need for transfer. 22:59 Patient left the ED. sv1 Addendum: 10/09/2021 12:56 Addendum: Culture Results: Positive urine culture. Faxed results to [facility] . a a5 Signatures: Dispatcher [employer] EDMS Clifton Quezada MD MD cha Ballard, Brenda RN RN Christin Rodriguez, RN RN Ariane Lebron ag3 Kiran Bundy, RN RN sv1
--- NOTE | 2021-10-05 21:10 | EDPHYS ---
Physician Documentation [facility] Name: Roland Feldman Jr Age: 36 yrs Sex: Male : 1985 Arrival Date: 10/05/2021 Time: 19:17 Bed 15 Private MD: JESSICA Physician Clifton Quezada HPI: 10/05 19:36 This 36 yrs old Black Male presents to ER via Unassigned with complaints of Headache. scott 19:36 The patient complains of pain to the top of head, forehead, left frontal area, left scott side of the back of head, left occipital area, left base of the skull, right frontal area, right side of the back of head, right occipital area and right base of the skull. The patient describes the headache as constant. Onset: The symptoms/episode began/occurred 3 week(s) ago. Associated signs and symptoms: Pertinent positives: dizziness, nausea. Severity of symptoms: At its worst the pain was moderate, in the emergency department the pain is unchanged. Headache History: The patient has had previous headaches and this one is similar to previous episodes. The patient has experienced similar episodes in the past, multiple times. Historical: - Allergies: 22:58 Amoxicillin; sv1 22:58 Ciprofloxacin; sv1 22:58 CLAVULANIC ACID; sv1 22:58 Doxycycline; sv1 22:58 Demerol; sv1 22:58 Bactrim; sv1 22:58 Levofloxacin; sv1 22:58 Morphine; sv1 22:58 PENICILLINS; sv1 22:58 Toradol; sv1 22:58 TRIMETHOPRIM; sv1 22:58 Vancomycin; sv1 22:58 Zofran; sv1 - Home Meds: 22:58 Celexa 20 mg Oral tab 1 tab once daily [Active]; fentanyl 25 mcg/hr Topical pt72 1 sv1 patch every 72 hours [Active]; Pepcid 20 mg Oral tab 1 tab once daily [Active]; Percocet 10-325 mg Oral tab 1 tab every 6 hours [Active]; Reglan 10 mg Oral tab 1 tab once daily [Active]; Wellbutrin SR 150 mg Oral TbER 1 tab 2 times per day [Active]; - PMHx: 22:58 Asthma; Cerebral Palsy; decubitus ulcers on feet; cluster headaches; GERD; sv1 Hypertension; Hydrocephalus; spina bifida; - Immunization history:: Adult Immunizations up to date. - Social history:: Smoking status: Patient reports the use of cigarette tobacco products. - Family history:: not pertinent. ROS: 19:36 Constitutional: Negative for fever, chills, and weight loss, Eyes: Negative for injury, scott pain, redness, and discharge, ENT: Negative for injury, pain, and discharge, Neck: Negative for injury, pain, and swelling, Cardiovascular: Negative for chest pain, palpitations, and edema, Respiratory: Negative for shortness of breath, cough, wheezing, and pleuritic chest pain, Abdomen/GI: Negative for abdominal pain, nausea, vomiting, diarrhea, and constipation, Back: Negative for injury and pain, : Negative for injury, bleeding, discharge, and swelling, MS/Extremity: Negative for injury and deformity, Skin: Negative for injury, rash, and discoloration, Psych: Negative for depression, anxiety, suicide ideation, homicidal ideation, and hallucinations, Allergy/Immunology: Negative for hives, rash, and allergies, Endocrine: Negative for neck swelling, polydipsia, polyuria, polyphagia, and marked weight changes, Hematologic/Lymphatic: Negative for swollen nodes, abnormal bleeding, and unusual bruising. 19:36 Neuro: Positive for dizziness, headache. Exam: 19:36 Constitutional: This is a well developed, well nourished patient who is awake, alert, scott and in no acute distress. Head/Face: Normocephalic, atraumatic. Eyes: Pupils equal round and reactive to light, extra-ocular motions intact. Lids and lashes normal. Conjunctiva and sclera are non-icteric and not injected. Cornea within normal limits. Periorbital areas with no swelling, redness, or edema. ENT: Nares patent. No nasal discharge, no septal abnormalities noted. Tympanic membranes are normal and external auditory canals are clear. Oropharynx with no redness, swelling, or masses, exudates, or evidence of obstruction, uvula midline. Mucous membranes moist. Neck: Trachea midline, no thyromegaly or masses palpated, and no cervical lymphadenopathy. Supple, full range of motion without nuchal rigidity, or vertebral point tenderness. No Meningismus. Chest/axilla: Normal chest wall appearance and motion. Nontender with no deformity. No lesions are appreciated. Cardiovascular: Regular rate and rhythm with a normal S1 and S2. No gallops, murmurs, or rubs. Normal PMI, no JVD. No pulse deficits. Respiratory: Lungs have equal breath sounds bilaterally, clear to auscultation and percussion. No rales, rhonchi or wheezes noted. No increased work of breathing, no retractions or nasal flaring. Abdomen/GI: Soft, non-tender, with normal bowel sounds. No distension or tympany. No guarding or rebound. No evidence of tenderness throughout. Back: No spinal tenderness. No costovertebral tenderness. Full range of motion. Skin: Warm, dry with normal turgor. Normal color with no rashes, no lesions, and no evidence of cellulitis. MS/ Extremity: Pulses equal, no cyanosis. Neurovascular intact. Full, normal range of motion. Neuro: Awake and alert, GCS 15, oriented to person, place, time, and situation. Cranial nerves II-XII grossly intact. Motor strength 5/5 in all extremities. Sensory grossly intact. Cerebellar exam normal. Normal gait. Psych: Awake, alert, with orientation to person, place and time. Behavior, mood, and affect are within normal limits. 19:36 Neck: External neck: is normal, no acute changes, C-spine: appears grossly normal, no acute changes, ROM/movement: is normal, no acute changes, pain, is not appreciated, limited range of motion, is not appreciated. Vital Signs: 19:36 BP 146 / 102 LA Supine (auto/reg); Pulse 99 MON; Resp 14 S; Temp 98.8; Pulse Ox 98% on sv1 R/A; Weight 127.46 kg (R); Height 4 ft. 11 in. (149.86 cm) (R); Pain 10/10; 19:44 BP 146 / 102 LA Supine (auto/reg); Pulse 99 MON; Resp 14 S; Temp 98.9(O); Pulse Ox 98% sv1 on R/A; 19:36 Body Mass Index 56.75 (127.46 kg, 149.86 cm) sv1 Heber Coma Score: 19:38 Eye Response: spontaneous(4). Verbal Response: oriented(5). Motor Response: obeys scott commands(6). Total: 15. MDM: 19:21 Patient medically screened. scott 19:38 Differential diagnosis: epidural hematoma, neoplasm. Data reviewed: vital signs, nurses scott notes, lab test result(s), radiologic studies, CT scan, plain films. 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 Test interpretation: by ED physician or midlevel provider: ECG, plain radiologic studies. Counseling: I had a detailed discussion with the patient and/or guardian regarding: the historical points, exam findings, and any diagnostic results supporting the discharge/admit diagnosis, lab results, radiology results. 10/05 19:35 Order name: CBC with Diff; Complete Time: 21:02 [facility] 10/05 19:35 Order name: Comprehensive Metabolic Panel; Complete Time: 21:37 [facility] 10/05 19:35 Order name: CT Head Brain wo Cont; Complete Time: 22:45 [facility] 10/05 19:35 Order name: Shuntogram XRAY; Complete Time: 22:45 [facility] 10/05 19:35 Order name: Urine Culture [facility] 10/05 21:06 Order name: COVID-19/FLU A+B (Document "Date of Onset" if Symptomatic); Complete Time: bb 22:45 Administered Medications: 22:53 Drug: Dilaudid (HYDROmorphone) 1 mg Route: IVP; Site: left subclavian; sv1 Disposition Summary: 10/05/21 21:10 Transfer Ordered Transfer Location: [facility] Reason: Higher level of care scott Condition: Stable scott Problem: new scott Symptoms: have improved scott Accepting Physician: to [facility](10/05/21 22:59) sv1 Diagnosis - Headache - 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
[2021-10-05 21:30] LABS: ALT/SGPT 47 U/L (12-78); AST/SGOT 17 U/L (15-37); Albumin 3.7 g/dL (3.4-5.0); Alkaline Phosphatase 114 U/L (45-117); BUN Blood Urea Nitrogen 15 mg/dL (7-18); Bicarbonate 25 mmol/L (21-32); Bilirubin Total 0.4 mg/dL (0.2-1.0); Glucose Level 84 mg/dL (74-106); Protein, Total 8.7 g/dL (6.4-8.2); Sodium Level 138 mmol/L (136-145)
--- NOTE | 2021-10-05 21:54 | RAD REPORT ---
EXAM DESCRIPTION: RAD - Shuntogram - 10/05/2021 9:46 pm CLINICAL HISTORY: PAIN COMPARISON: Shuntogram dated 09/29/2021 FINDINGS: Right-sided shunt tubing is noted. This traverses the chest from right to left. The tubing the abdomen on the left aspect. No kink or break is seen. Several old right-sided shunt tubes are al so present.
--- NOTE | 2021-10-05 21:55 | RAD REPORT ---
EXAM DESCRIPTION: CT - Head Brain Wo Cont - 10/05/2021 9:46 pm CLINICAL HISTORY: HEADACHE Headache, drowsiness COMPARISON: Head Brain Wo Cont dated 09/29/2021; Head Brain Wo Cont dated 07/21/2019 TECHNIQUE: All CT scans are performed using dose optimization technique as appropriate and may inclu de automated exposure control or mA/KV adjustment according to patient size. FINDINGS: The ventricular system is quite decompressed.Right-sided shunt tubing is in place, unchang ed in position. No acute bony defect, extra-axial fluid collection midline shift. The paranasal sinuses and mastoids are clear. The calvarium is intact. IMPRESSION: The ventricular system is quite decompressed. Suggest clinical correlation for possible slight ventricle syndrome. Otherwise, no acute process is identified.
[2021-10-05 22:37] LABS: SARS-COV-2 RT PCR NEGATIVE (NEGATIVE)
[2021-10-05] MEDS ORDERED: HYDROMORPHONE HCL 1 MG/ML INJ ONE (22:54)
[2021-10-05 23:43] VITALS: BP 146/102; O2SAT 98
[2021-10-05 23:44] VITALS: TEMP 98.9
[2021-10-10 13:34] LABS: Urine Blood 1+ (Negative); Urine Glucose Negative (Negative); Urine Protein Trace (Negative); Urine Specific Gravity >=1.030 (1.005-1.030)
== END 2021-10-05 22:59 | disposition short-term general hospital (02) ==
LOC: ER 19:16
DX: R51.9 Headache, unspecified (principal); Z98.2 Presence of cerebrospinal fluid drainage device; D72.829 Elevated white blood cell count, unspecified; E66.9 Obesity, unspecified; Q05.9 Spina bifida, unspecified; Z20.822 Contact with and (suspected) exposure to COVID-19; Z72.0 Tobacco use; Z88.0 Allergy status to penicillin; Z88.1 Allergy status to other antibiotic agents; Z88.3 Allergy status to other anti-infective agents; Z88.5 Allergy status to narcotic agent; Z88.8 Allergy status to other drugs, medicaments and biological substances
CPT/HCPCS: 87088; 85025; 87086; 36415; 87077; 87186; 80053; 0240U; 70450; 75809; 49427; 96374; 99285; J1170; 81003

== ENCOUNTER 2021-10-20 13:04 | Emergency (ER) | payer OTHER ==
--- OUTSIDE RECORDS SUMMARY | 2021-10-20 13:16 | XMS REPORT | Continuity of Care Document ---
:1985 Author Organization [facility] t Address [address] [place] [address] [address]. [address] [place] [address] Care Team Providers Name Role Phone Sharpless Primary Care Physician Nichole Attending Clinician Unavailable HOOK Attending Clinician Unavailable Singer MIRZA Attending Clinician CICI YANEZ Attending Clinician Unavailable Cici Lam Attending Clinician Duane GARCIA Attending Clinician Christ SERNA Attending Clinician Unavailable Christ Serna MD Attending Clinician Ellie NUNO Attending Clinician Kb BALDERRAMA Attending Clinician Unavailable Kb Lopez Attending Clinician Hi FONSECA Attending Clinician Unavailable Hi Fonseca NP Attending Clinician Only, Db Test Attending Clinician Unavailable Toño NUNO Attending Clinician TOÑO Attending Clinician Unavailable Ibikunle SCENARIO WRITER, F Attending Clinician NICKY, Cassandra Attending Clinician Unavailable MITCHELL Attending Clinician Unavailable LAMAR GENAO Attending Clinician Unavailable CICI YANEZ Admitting Clinician Unavailable ELLIE Admitting Clinician Unavailable Ellie NUNO Admitting Clinician JAMALKb Admitting Clinician Unavailable Hi FONSECA Admitting Clinician Unavailable ALEX Admitting Clinician Unavailable LAMAR GENAO Admitting Clinician Unavailable Payers Payer Name Policy Type Policy Number Effective Date Expiration Date S samir [facility] [id number] 2020 PLUS 00:00:00 AMERIGROUP [facility] [id number] 2020 00:00:00 Advance Directives Directive Decision Effective Termination Comments Source Date Date Healthcare Agents on N/A [facility] FileNameRelationshipHealcare [facility] Agent Medical RelationshipCommunicationCarteret Health Care Care [phone] (Mobile) Problems Condition Condition Condition Status Onset Resolution Last Treating Co mments Source Name Details Category Date Date Treatment Clinician Date Complicate Complicate Disease Active U nivers d urinary d urinary 1-20 ity of tract tract 00:00: [place] infection infection 00 [facility] Hyperglyce Hyperglyce Disease Active [facility] without without 00:00: Medical ketosis ketosis 00 Center HEADACHE Diagnosis Active 2017-072017-11-20 M emoria 07-22 09:20:00 l HEADACHE 00:00: Christian n 00 Active [facility] SHUNT Diagnosis Active 2017-11-14 Mem oria MALFUNCTIO 11-14 20:00:00 l N SHUNT 00:00: Jason MALFUNCTIO 00 N Active 11/14/2017 [facility] ACUTE Diagnosis Active 2017-11-20 Mem oria HEADACHE 11-14 09:20:00 l ACUTE 00:00: Jason HEADACHE 00 Active 11/14/2017 [facility] Spina Spina Disease Active [facility] Pyelonephr Pyelonephr Disease Active [facility] itis itis 6-11 [facility] Morbid Morbid Disease Active Univers obesity obesity [...] Kristen nn d bifida, unspecifie d 12/09/2018 [facility] Nausea Problem 2018-12-09 Memor ia with 14:14:02 l vomiting, Nausea Kristen nn unspecifie with d vomiting, unspecifie d 12/09/2018 [facility] Diplopia Problem 2018-12-09 Mem oria 14:14:02 l Diplopia Christian n 12/09/2018 [facility] 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, 14:14:02 l unspecifie Cerebral He rmann d palsy, unspecifie d 12/09/2018 [facility] 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-09 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:14:02 l other Acquired Christian n specified absence of parts of other digestive specified tract parts of digestive tract 12/09/2018 [facility] Nicotine Problem 2018-12-09 Mem oria dependence 14:14:02 l , Nicotine Christian n cigarettes dependence , , uncomplica cigarettes lester , uncomplica lester 12/09/2018 [facility] Presence Problem 2018-12-09 Mem oria of 14:14:02 l cerebrospi Presence He rmann nal fluid of drainage cerebrospi device nal fluid drainage device 12/09/2018 [facility] Allergy Problem 2018-12-09 Erwin benjamin status to 14:14:02 l other Allergy Jason antibiotic status to agents other status antibiotic agents status 12/09/2018 [facility] Allergy Problem 2018-12-09 Erwin benjamin status to 14:14:02 l other Allergy Jason drugs, status to medicament other s and drugs, biological medicament substances s and status biological substances status 12/09/2018 [facility] Allergy Problem 2018-12-09 Erwin benjamin status to 14:14:02 l narcotic Allergy Kristen nn agent status to status narcotic agent status 12/09/2018 [facility] Asthma Problem Resolve 2019-03-06 Erwin benjamin (disorder) d 01:05:55 l Asthma [place] (disorder) Resolved Problem 03/06/2019 [facility] Bronchitis Problem Resolve 2019-03-06 Memoria (disorder) d 01:05:55 l [place] Bronchitis (disorder) Resolved Problem 03/06/2019 [facility] Cerebral Problem Resolve 2019-03-06 Me moria palsy d 01:05:55 l (disorder) Cerebral He rmann palsy (disorder) Resolved Problem 03/06/2019 [facility] Hydrocepha Problem Resolve 2019-03-06 Memoria bam d 01:05:55 l (disorder) Christian n Hydrocepha bam (disorder) Resolved Problem 03/06/2019 [facility] Osteomyeli Problem Resolve 2019-03-06 Memoria tis d 01:05:55 l (disorder) Christian n Osteomyeli tis (disorder) Resolved Problem 03/06/2019 [facility] Acute pain Problem Active 2019-03-06 M emoria (finding) 01:05:55 l Acute [place] pain (finding) Active Problem 03/06/2019 [facility] Headache Problem Active 2019-03-06 Mem oria (finding) 01:05:55 l Headache Christian n (finding) Active Problem 03/06/2019 [facility] History of Past Illness Condition Condition Condition Status Onset Resolution Last Treating Co mments Source Name Details Category Date Date Treatment Clinician Date Headache Problem 2017-072018-12-09 2018-12-09 Memoria 1-08 14:14:02 14:14:02 l Headache 06:00: Christian n 00 05/22/2018 12/09/2018 [facility] Allergies, Adverse Reactions, Alerts Allergy Allergy Status Severity Reaction(s) Onset Inactive Treating Comm ents Source Name Type Date Date Clinician Amoxicil Propensi Active Hives Univer [place] to 7 ity of adverse 00:00: [place] reaction 00 Medical s Branch AMOXICIL DRUG Active Hives Univers [place] INGREDI 7-27 ity of 00:00: [place] 00 Medical Branch Metoclop Propensi Active Nausea 2016- Univer s ramide ty to and/or 2-20 ity of Hcl adverse Vomiting 00:00: [place] reaction 00 Medical s Branch METOCLOP DRUG Active N/V 2016- Univers RAMIDE INGREDI 2-20 ity of HCL 00:00: [place] 00 [facility] Branch Sulfamet Propensi Active Hives 2017-0 [facility] [...] 00 Center s ONDANSET Allergy Active N\\T\\V 2017-0 [facility] [...] See U nivers hoprim ty to comments - ity of Ds adverse 00:00: [place] reaction 00 Medical s Branch Vancomyc Propensi Active Other - See U nivers in ty to comments 1-04 ity of adverse 00:00: [place] reaction 00 Medical s Branch SULFA Drug Active Other-Cmnt Univer s (SULFONA Class 1-04 ity of MIDE 00:00: [place] ANTIBIOT 00 Medical ICS) Branch SULFAMET DRUG Active Other-Cmnt Univ ers HOPRIM 07-18 ity of DS 00:00: [place] 00 Medical Branch VANCOMYC DRUG Active Other-Cmnt Univ ers IN INGREDI - ity of 00:00: [place] 00 Medical Branch Sulfamet Propensi Active Rash Univer s hoxazole ty to 7-19 ity of adverse 00:00: [place] reaction 00 Medical s Branch Ondanset Propensi Active Nausea Univer s kumar Hcl ty to and/or 01-30 ity of (Pf) adverse Vomiting 00:00: [place] reaction 00 Medical s Branch SULFAMET DRUG Active Rash Univers HOXAZOLE INGREDI 7-19 ity of 00:00: [place] 00 Medical Branch ONDANSET DRUG Active N/V Univers KUMAR HCL 7-19 ity of (PF) 00:00: [place] 00 Medical Branch Levoflox Propensi Active Hives Univer s acin ty to 5-23 ity of adverse 00:00: [place] reaction 00 Medical s Branch Morphine Propensi Active Hives Univer s ty to 5-23 ity of adverse 00:00: [place] reaction 00 Medical s Branch Ketorola Propensi Active Nausea Univer s c ty to and/or 5- ity of Trometha adverse Vomiting 00:00: [place] mine reaction 00 Medical s Branch LEVOFLOX DRUG Active Hives Univers ACIN INGREDI 5-23 ity of 00:00: [place] 00 [facility] MORPHINE DRUG Active Hives Univers INGREDI 12-04 ity of 00:00: [place] 00 [facility] KETOROLA DRUG Active N/V Univers C INGREDI 12-04 ity of TROMETHA 00:00: [place] MINE 00 [facility] Morphine Adverse Active Info Not CHI [...] Jason Levaquin Levaquin Active Memori a l Jason Bactrim Bactrim Active Memoria l [place] amoxicil amoxicil Active Memori [place] Jason morphine morphine Active Memori a l Jason Toradol Toradol Active Memoria l Jason Social History Social Habit Start Date Stop Date Quantity Comments Source History of tobacco Cigarette Smoker [facility] - use [facility] Exposure to Not sure [facility] SARS-CoV-2 (event) [facility] Alcohol intake 2021-10-15 2021-10-15 0 /d University of 00:00:00 00:00:00 [facility] Cigarettes smoked 2016-12-25 2016-12-25 [facility] - current (pack per 00:00:00 00:00:00 [facility] day) - Reported Tobacco use and 2016-07-18 2016-07-18 Never used Universit y of exposure 00:00:00 00:00:00 [facility] Sex [birth year] At [birth year] Universit y of 00:00:00 00:00:00 [facility] Smoking Status Start Date Stop Date Source Current every day smoker 2016-07-18 00:00:00 Uni versity of [facility] Medications Ordered Filled Start Stop Current Ordering Indication Dosage Frequency Signature Comments Components Source Medication Medication Date Date Medication? Clinician (SIG) Name Name NaCl 0.9% 2021- No 1000mL at 999 Uni vers (NS) bolus 4-04 04-04 mL/hr, ity of infusion 05:00: 05:59 1,000 mL, Tim as 1,000 mL 00 :00 IV Medical Piggyback, Branch ONCE, 1 dose, On 10/16/21 at 0000, STAT diphenhydrA No 25mg 25 mg, Uni vers MINE 10-16 Slow IV ity of (BENADRYL) 05:00: 04:47 Push, [place] injection 00 :00 ONCE, 1 Medical 25 mg dose, On Branch [facility] 10/16/21 at 0000, STAT haloperidol No 2.5mg 2.5 mg, U nivers lactate 10-16 Intravenou ity o f (HALDOL) 05:00: 04:47 [place], ONCE, 1 [place] injection [place] :[place] dose, On Medica l 2.5 mg [facility] 10/16/21 Branch at 0000, STAT butalbital- No 2{tbl} 2 tablet, Univers acetaminoph 09-29 Oral, ity of en-caff 03:45: 03:10 ONCE, 1 [place] (ESGIC) 00 :00 dose, On Medical 50-325-40 Libra Branch mg tablet 2 09/28/21 at tablet 2245, SAHARA NaCl 0.9% No 500mL at 999 Univ ers (NS) bolus 09-29 mL/hr, 500 it y of infusion 02:30: 03:17 mL, IV [place] 500 mL 00 :00 Infusion, Medical ONCE, 1 Branch dose, On Libra 09/28/21 at 2130, STAT diphenhydrA No 25mg 25 mg, Uni vers MINE 09-29 Slow IV ity of (BENADRYL) 02:30: 01:46 Push, [place] injection 00 :00 ONCE, 1 Medical 25 mg dose, On Branch [facility] 09/28/21 at 2130, STAT magnesium No 2g 2 g, IV Univ ers sulfate in 09-29 Piggyback, it y of water 2 02:15: 03:17 Administer Tim as gram/50 mL 00 :00 over 30 Medica l (4 %) Minutes, Branch infusion 2 ONCE, 1 g dose, On Libra 09/28/21 at 2115, Routine HYDROmorpho 2022-0 2022- No .5mg 0.5 mg, Un ela ne 08-09 Slow IV ity of (DILAUDID) 01:30: 01:25 Push, [place] injection 00 :00 ONCE, 1 Medical 0.5 mg dose, On Branch Sat08/08/21 at 1930, Routine
Use approved by (Faculty): ADC PROVIDER levoFLOXaci 2021- Yes [id number] 750mg Take 1 Univers n 750 mg 08-09 tablet by ity o f tablet 00:00: 05:59 mouth [place] 00 :00 daily for Medical 4 days. Branch levoFLOXaci 2021- Yes [id number] 750mg Take 1 Univers n 750 mg 08-09 tablet by ity o f tablet 00:00: 05:59 mouth [place] 00 :00 daily for Medical 4 days. Bly OXYCODONE Yes Take by [facility] ers HCL/ACETAMI 1-25 mouth. ity of NOPHEN 19:49: [place] (PERCOCET 27 Medical ORAL) Bly OXYCODONE Yes Take by [facility] ers HCL/ACETAMI 1-25 mouth. ity of NOPHEN 19:49: [place] (PERCOCET 27 Medical ORAL) [place] OXYCODONE Yes Take by [facility] ers HCL/ACETAMI 1-25 mouth. ity of NOPHEN 19:49: [place] (PERCOCET 27 Medical ORAL) Bly OXYCODONE Yes Take by [facility] ers HCL/ACETAMI 1-25 mouth. ity of NOPHEN 19:49: [place] (PERCOCET 27 Medical ORAL) Bly vancomycin 2021- Yes 125mg 125 mg, Un [...] Yes 750mg 750 mg, Un ela n 1-25 Oral, ity of (LEVAQUIN) 15:00: DAILY, [place] tablet 750 00 First dose Med ical mg (after Branch last modificati on) on Sat08/08/21 at 0900, Until Discontinu ed, SAHARA
Re ason for Anti-Infec tive: Empiric Therapy for Suspected Infection< br>Empiric Therapy Site: Urine
D uration of therapy: 72 hours lactobacill 2021- Yes [id number] .5mg Take 1 Univers us -08 09-25 tablet by ity of acidophilus 00:00: 05:59 mouth 2 [place] 00 :00 (two) Medical times Branch daily for 30 days. lactobacill 2021- Yes [id number] .5mg Take 1 Univers us 08-08-25 tablet by ity of acidophilus 00:00: 05:59 mouth 2 [place] 00 :00 (two) Medical times Branch daily for 30 days. vancomycin 2021- Yes [id number] 125mg Take 1 Univers 125 mg 08-08- capsule by ity of capsule 00:00: 05:59 mouth 4 [place] 00 :00 (four) Medical times Branch daily for 5 days. vancomycin 2021- Yes [id number] 125mg Take 1 Univers 125 mg 08-08- capsule by ity of capsule 00:00: 05:59 mouth 4 [place] 00 :00 (four) Medical times Branch daily for 5 days. traMADoL Yes 50mg 50 mg, Univers (ULTRAM) 1-24 Oral, ity of tablet 50 21:26: Q6HPRN, [place] mg 10 Starting Medical on Sat08/07/21 at 1526, Until Discontinu ed, Routine, Pain (scale 4-6) levoFLOXaci 2021- No 250mg 250 mg, U nivers n 1-24 01-24 Oral, Q24H ity of (LEVAQUIN) 19:30: 23:18 ABX, First [place] tablet 250 00 :17 dose Medical mg (after Branch last modificati on) on 08/07/21 at 1330, Until Discontinu ed, SAHARA
Re ason for Anti-Infec tive: Empiric Therapy for Suspected Infection< br>Empiric Therapy Site: Urine
D uration of therapy: 72 hours HYDROmorpho 2021- No .5mg 0.5 mg, Un ela ne 08-06 Slow IV ity of (DILAUDID) 20:45: 18:23 Push, [place] injection 00 :44 Q6HPRN, Medical 0.5 mg Starting Branch on 08/06/21 at 1445, Until 08/07/21 at 1223, Routine, Pain (scale 7-10), breakthrou gh pain
Us e approved by (Faculty): ADC PROVIDER oxyCODONE-a Yes 2{tbl} 2 tablet, [facility] cetaminophe 08-06 Oral, ity of n 20:39: Q6HPRN, [place] (PERCOCET) 03 Starting Medic al 5-325 mg on [place] Branch per tablet 08/06/21 at 2 tablet 1439, Until Discontinu ed, Routine, Pain (scale 7-10) HYDROmorpho 2021- No .5mg 0.5 mg, Un ela ne 08-06 Slow IV ity of (DILAUDID) 00:00: 23:41 Push, [place] injection 00 :00 ONCE, 1 Medical 0.5 mg dose, On Branch 08/05/21 at 1800, Routine
Use approved by (Faculty): ADC PROVIDER ertapenem 2021- No 1000mg 1,000 mg, [facility] (INVANZ) 08-05 IV ity of 1,000 mg in 15:45: 18:30 Piggyback, [place] NaCl 0.9% 00 :00 Q24H ABX, Medic al (NS) 50 mL First dose [facility] MINI-BAG on 08/05/21 at 0945, Until [...] 08/04/21 at 2000, Until Discontinu ed, SAHARA
state [employer] agent team member approving Non-formul shanelle medication : [...] 100 mL
Rest ricted use approved by: [facility] PROVIDER<b r>Reaso n for Anti-Infec tive: Documented [...] Branch on Libra 08/03/21 at 0829, Until Glenvil 08/06/21 at 1441, Routine, Pain (scale 7-10)
U se approved by (Faculty): ADC PROVIDER proMETHazin Yes 25mg 25 mg, Univ ers e 08-03 Oral, ity of (PHENERGAN) [...] ADC PROVIDER proCHLORper Yes 10mg 10 mg, [facility] ers azine 08-03 Slow IV ity of (COMPAZINE) 09:07: Push, [place] injection 27 Q6HPRN, Medical 10 mg Starting Branch on Libra 08/03/21 at 0307, Until Discontinu ed, Routine, Nausea and Vomiting (N/V) acetaminoph Yes 650mg 650 mg, Un ela en 08-03 Oral, ity of (TYLENOL) 09:07: Q6HPRN, [place] tablet 650 10 Starting Medic al mg [...] [place] mg 00 :00 dose, On Medical [facility] Branch 07/31/21 at 2130, SAHARA
Re ason [...] 00 :00 dose, On Medical NaCl 0.9% [facility] Branch (NS) 50 mL 07/31/21 at piggyback 1915, 50 mL cefdinir 2021- Yes [id number] 300mg Take 1 U nivers 300 mg 07-31 capsule by ity of capsule 00:00: 05:59 mouth [place] 00 :00 every 12 Medical (twelve) Branch hours for 10 days. cefdinir 2021- No [id number] 300mg Take 1 U nivers 300 mg 07-31 capsule by ity of capsule 00:00: 00:00 mouth [place] 00 :00 every 12 Medical (twelve) Branch hours for 10 days. FENTanyl PF 2021- No 50ug 50 mcg, Un ela (SUBLIMAZE 07-30 Slow IV ity o f (PF)) 02:00: 01:19 Push, [place] injection 00 :00 ONCE, 1 Medical 50 mcg dose, On Branch 07/29/21 at 2000, Routine methocarbam 2021- No 1000mg 1,000 mg, [...] 07/29/21 at 1645, Routine methocarbam 2021-0 Yes [id number] 1000mg Take 2 Univers oL 500 mg 1-15 tablets by ity of tablet 00:00: mouth (four) Medical times Branch daily as needed for Pain (scale 1-3). methocarbam 2021-0 Yes [id number] 1000mg Take 2 Univers oL 500 mg 1-15 tablets by ity of tablet 00:00: mouth (four) Medical times Branch daily as needed for Pain (scale 1-3). methocarbam 2021-0 Yes [id number] 1000mg Take 2 Univers oL 500 mg 1-15 tablets by ity of tablet 00:00: mouth (four) Medical times Branch daily as needed for Pain (scale 1-3). methocarbam 2021-0 Yes [id number] 1000mg Take 2 Univers oL 500 mg 1-15 tablets by ity of tablet 00:00: mouth 4 (four) Medical times Branch daily as needed for Pain (scale 1-3). methocarbam 2021-0 Yes [id number] 1000mg Take 2 Univers oL 500 mg 1-15 tablets by ity of tablet 00:00: mouth 4 (four) Medical times Branch daily as needed for Pain (scale 1-3). methocarbam 2021-0 Yes [id number] 1000mg Take 2 Univers oL 500 mg 1-15 tablets by ity of tablet 00:00: mouth 4 [place] 00 (four) Medical times Branch daily as needed for Pain (scale 1-3). proMETHazin 2020-07 No 25mg 25 mg, IV Univers e 1-06-07 Piggyback, ity of (PHENERGAN) 23:15: 22:20 ONCE, 1 [place] 25 mg in 00 :00 dose, On Medical NaCl 0.9% Wed Branch (NS) 50 mL 06/07/21 piggyback at 1715, 50 mL FENTanyl PF 2020-07 No 75ug 75 mcg, Un ela (SUBLIMAZE 08-07 Slow IV ity o f (PF)) 22:15: 22:20 Push, [place] injection 00 :00 ONCE, 1 Medical 75 mcg dose, On Branch 06/07/21 at 1615, Routine fidaxomicin 2020-07 Yes [id number] 200mg Take 1 Univers 200 mg 1-24 tablet by ity of tablet 00:00: mouth 2 [place] 00 (two) Medical times Branch daily. proMETHazin 2020-07 Yes [id number] 25mg Take 1 Univers e 25 mg 1-24 tablet by ity of tablet 00:00: mouth [place] 00 every 6 Medical (six) Branch hours as needed for Nausea and Vomiting (N/V). fidaxomicin 2020-07 Yes [id number] 200mg Take 1 Univers 200 mg 1-24 tablet by ity of tablet 00:00: mouth 2 [place] 00 (two) Medical times Branch daily. proMETHazin 2020-07 Yes [id number] 25mg Take 1 Univers e 25 mg 1-24 tablet by ity of tablet 00:00: mouth [place] 00 every 6 Medical (six) Branch hours as needed for Nausea and Vomiting (N/V). cholestyram 2020-07 Yes Univer s ine 4 gram 1-24 ity of packet 00:00: [place] 00 Medical Branch fidaxomicin 2020-07 Yes [id number] 200mg Take 1 Univers 200 mg 1-24 tablet by ity of tablet 00:00: mouth 2 [place] 00 (two) Medical times Branch daily. proMETHazin 2020-07 Yes [id number] 25mg Take 1 Univers e 25 mg 1-24 tablet by ity of tablet 00:00: mouth [place] 00 every 6 Medical (six) Branch hours as needed for Nausea and Vomiting (N/V). cholestyram 2020-07 Yes Univer s ine 4 gram 1-24 ity of packet 00:00: [place] Medical Branch cholestyram 2020-07 Yes Univer s ine 4 gram 1-24 ity of packet 00:00: [place] Medical Branch cholestyram 2020-07 Yes Univer s ine 4 gram 1-24 ity of packet 00:00: [place] Medical Branch cholestyram 2020-07 Yes Univer s ine 4 gram 1-24 ity of packet 00:00: [place] Medical Branch cholestyram 2020-07 Yes Univer s ine 4 gram 1-24 ity of packet 00:00: [place] Medical Branch fidaxomicin 2020-07 Yes [id number] 200mg Take 1 Univers 200 mg 1-24 tablet by ity of tablet 00:00: mouth 2 [place] 00 (two) Medical times Branch daily. proMETHazin 2020-07 Yes [id number] 25mg Take 1 Univers e 25 mg 1-24 tablet by ity of tablet 00:00: mouth [place] 00 every 6 Medical (six) Branch hours as needed for Nausea and Vomiting (N/V). fidaxomicin 2020-07- No [id number] 200mg Take 1 Univers 200 mg 1-24 -25 tablet by ity of tablet 00:00: 00:00 mouth 2 [place] 00 :00 (two) Medical times Branch daily. proMETHazin 2020-07- No [id number] 25mg Take 1 Univers e 25 mg [...] ONCE, 1 Medical (NS) 50 mL dose, [facility] MINI-BAG 11/20/20 at 2130, 50 mL
Reas on for Anti-Infec tive: Documented Infection< br>Documen lester Infection Site: Urine
D uration of Therapy: 7 days famotidine 2020- No 20mg 20 mg, Univ ers (PEPCID 5-10 05-10 Slow IV ity of (PF)) 01:00: 00:12 Push, [place] injection 00 :00 ONCE, 1 Medical 20 mg dose, [facility] 11/20/20 at 2000, SAHARA proMETHazin 2020- No 25mg 25 mg, IV Univers e 5-10 05-10 Piggyback, ity of (PHENERGAN) 00:45: 00:11 [place]CE[place] 1 [place] 25 mg in 00 :00 dose, [place] Medica l NaCl 0.9% 11/20/20 at [facility] h (NS) 50 mL 1945, 50 piggyback mL FENTanyl PF 2020- No 50ug 50 mcg, Un ela (SUBLIMAZE 5-10 05-10 Intravenou it y of (PF)) 00:45: 00:12 s, ONCE, 1 [place] injection 00 :00 dose, [place] Medic al 50 mcg 11/20/20 at Bly 1945, Routine NaCl 0.9% 2020- No 1000mL at 999 Uni vers (NS) bolus 5-10 05-10 mL/hr, ity of infusion 00:00: 01:47 1,000 mL, Tim as 1,000 mL 00 :[facility] dose, [place] 11/20/20 at 1900, SAHARA cefdinir 2020- No [id number] 300mg Take 1 U nivers 300 mg 11-20 05-20 capsule by ity of capsule 00:00: 04:59 mouth 2 [place] 00 :00 (two) Medical times Bly daily for 10 days. buPROPion 2020- No 150mg QD Take [address] [facility] (WELLBUTRIN 1-17 01-16 tablet [facility] - XL) 150 MG 00:00: 23:59 (150 mg Med ical 24 hr 00 :00 total) by Center tablet mouth daily. 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, Duration: 30 day, Stop date: 06/21/18 5:03:00 REFRIGERATION HOUSEMAN, 2.4, m2 Magnesium 2017-07 No Notes: Memori a Sulfate 07-22 WASTE: F/P l 10:36: - Sink; E [place] 00 - Municipal Trash Bin Isolyte S 2017-07 No Notes: Memori a PH-7.4 07-22 (Same as: l (Bolus) IV 10:36: Isolyte S He rmann 00 PH 7.4) Phenergan 2017-07 No 12.5 mg, Erwin benjamin -08 0.5 mL, l 10:35: Route: IVPB, Drug form: INJ, ONCE, Dosing Weight 131.818, kg, Priority: STAT, Start date: 05/22/18 4:35:00 REFRIGERATION HOUSEMAN, Stop date: 05/22/18 4:35:00 REFRIGERATION HOUSEMAN Citalopram Citalopram Yes Na Gamble [address] [facility] [address] Hydrobromid Hydrobromid 7-16 L ukes - e e 00:00: Memoria 00 l [facility] ent [facility] Seroquel Seroquel Yes Na Gamble [address] [facility] [facility] 7-16 [facility] - 00:00: Memoria 00 [facility] ent [facility] Docusate Yes 100 mg = 1 Mem oria Sodium 100 5-08 cap, PO, l MG Oral 14:56: BID, 0 Jason Capsule 00 Refill(s) Zosyn Yes 0 Memoria 5-08 Refill(s) l 14:56: [place] 00 celecoxib Yes 200 mg = 1 Me moria 200 mg oral 5-08 cap, PO, l capsule 14:56: BID, 0 [place] 00 Refill(s) ascorbic Yes 500 mg = 1 Mem oria acid 5-08 tab, PO, l 14:56: BID, 0 Jason 00 Refill(s) acetaminoph 0 Yes 1,000 mg = Memoria en 500 mg 5-08 2 tab, PO, l oral tablet 14:56: Q6Hnow, 0 H ermann 00 Refill(s) Oxycodone 0 Yes 5 mg = 1 Erwin benjamin [...] n 5-08 Daily, 0 l 14:56: Refill(s) [place] 00 methocarbam Yes 1,000 mg = Memoria ol 500 mg 08 2 tab, PO, l oral tablet 14:56: Q8H, 0 Herm carly 00 Refill(s) LORazepam Yes 0.5 mg = 1 Me moria 0.5 mg oral 08 tab, PO, l tablet 14:56: Q8H, PRN Jason 00 Anxiety, 0 Refill(s) Lidocaine Yes 3 patch, Erwin benjamin Hydrochlori 08 TOP, l de 0.05 14:56: Daily, [place] MG/MG 00 Remove Transdermal after 12 Patch [...] patch 5-06 Remove l 02:00: patch 12 [place] 00 hours after applicatio n each day. Oxycodone No Notes: Memori a Hydrochlori 5-05 (Same as: l de 5 MG 22:01: Roxicodone Herm carly Oral Tablet 00 ) Celebrex No Notes: Memoria 5-05 NSAID. l 22:00: Please [place] 00 check indication . Not for seizure. (Same As: CeleBREX) Vancomycin No 2000 mg: Me moria 5-05 infuse l 21:00: [...] 5-04 not give l 22:40: IV push. [place] 00 (Same as: Phenergan) Dilaudid No Notes: Memoria 5-04 Same as l 22:40: Dilaudid Jason 00 Tramadol No Notes: Not Mem oria 5-04 to exceed l 22:00: 400mg/day. [place] 00 (Same As: Ultram) gabapentin No Notes: Memor ia -04 (Same as: l 22:00: Neurontin) Jason 00 [...] pkt 5-04 (Same as: l 21:30: Beneprotei [place] 00 n) Acetaminoph No 1 tab, PO, Memoria en 325 MG / 5-04 TID, 0 l Oxycodone 17:12: Refill(s) Her manzo Hydrochlori 00 de 10 MG Oral Tablet [Percocet 10/325] Dilaudid No 0.5 mg, Memori a 5-04 0.25 mL, l 16:01: Route: [place] 00 IVP, Drug form: INJ, ONCE, Start [...] Take with food. Naproxen No Notes: Memoria - (Same as: l 07:00: Naprosyn) Take with food. Zosyn No Notes: Memoria 5- (Same as: l 07:00: Zosyn) Dosing based on Piperacill in component MEDICATION WASTE Product Size: 3375 mg Product Wasted: ___ mg Vancomycin No 2000 mg: Me moria - infuse l 07:00: over 2.5 Jason 00 hours For adult patients only: Round to nearest 250 mg per Medical Staff approval MEDICATION WASTE Product Size: 1000 mg Product Wasted: ___ mg Enoxaparin No Notes: Memor ia - (Same as: l 07:00: Lovenox) Sodium No 1,000 mL, Memori a Chloride 11-15 Rate: 125 l 0.9% IV 06:46: ml/hr, [place] 1,000 mL 00 Infuse over: 8 hr, Route: IV, Dosing Weight 127.27 kg, Total Volume: 1,000, Start date: 11/15/17 1:46:00 CDT, Duration: 30 day, Stop date: 12/15/17 1:45:00 CDT, 2.44, m2 Saline No Notes: Memoria Flush 0.9% - (Same as: l 06:46: BD [place] 00 Posiflush) Acetaminoph No Notes: Do M emoria en 5-04 not exceed l 06:46: 4 gm/day. [place] 00 (Same as: Tylenol) Acetaminoph No Notes: Erwin benjamin en 325 MG / 5- (Same as: l Hydrocodone 06:46: [place] Kristen nn Bitartrate 00 325/5) Do 5 MG Oral not exceed Tablet 4gm/day of acetaminop hen. Reglan No Notes: Memoria 5-04 (Same as: l 04:27: Reglan) Jason 00 Benadryl No Notes: Memoria 5-04 (Same as: l 04:27: Benadryl) [place] 00 Magnesium No Notes: Memori a Sulfate 11-15 WASTE: F/P l 04:26: - Sink; E Jason 00 - Municipal Trash Bin Sodium No 1,000 mL, Memori a Chloride -04 1000 l 0.9% 04:26: ml/hr, [place] (Bolus) IV 00 Infuse Over: 1 hr, Route: IV, 1,000, Drug form: INJ, ONCE, Priority: STAT, Dosing Weight 127.273 kg, Start date: 11/14/17 23:26:00 CDT, Stop date: 11/14/17 23:26:00 CDT Zosyn 2018- No 4.5 gm, Memoria 5-04 Route: l 04:10: IVPB, Jason 00 ONCE, Dosing Weight 127.273, kg, Priority: STAT, Start date: 11/14/17 23:10:00 CDT, Stop date: 11/14/17 23:10:00 CDT, ABX Indication : Bacteremia Vancomycin No 2001 mg: Me moria 5-04 infuse l 04:10: over 2.5 Jason 00 [...] Memoria 11-15 (Same As: l 02:21: Rocephin). MEDICATION WASTE Product Size: 1000 mg Product Wasted: _0__ mg Morphine No 4 mg, Memoria 11-15 Route: l 00:05: IVP, ONCE, Dosing Weight 127.273, kg, Priority: STAT, Start date: 11/14/17 19:05:00 CDT, Stop date: 11/14/17 19:05:00 CDT Benadryl No Notes: Memoria - (Same as: l 23:14: Benadryl) Benadryl No Notes: Memoria 5-03 (Same as: l 22:56: Benadryl) Morphine No 4 mg, 1 Memori a 5-03 mL, Route: l 22:56: IVP, Drug form: SOLN, ONCE, Dosing Weight 127.273, kg, Priority: STAT, Start date: 11/14/17 17:56:00 CDT, Stop date: 11/14/17 17:56:00 CDT OXYCODONE 2016- Yes Take by Univ ers HCL/ACETAMI 2-20 mouth. ity of NOPHEN 10:03: [place] (PERCOCET 17 Medical ORAL) Branch OXYCODONE 2016-07 Yes Take by Univ ers HCL/ACETAMI 2-20 mouth. ity of NOPHEN 04:03: [place] (PERCOCET 17 Medical ORAL) Branch OXYCODONE 2016-07 Yes Take by Univ ers HCL/ACETAMI 2-20 mouth. ity of NOPHEN 04:03: [place] (PERCOCET 17 Medical ORAL) Branch OXYCODONE 2016-07 Yes Take by Univ ers HCL/ACETAMI 2-20 mouth. ity of NOPHEN 04:03: [place] (PERCOCET 17 Medical ORAL) Bly OXYCODONE 2016-07 Yes Take by Univ ers HCL/ACETAMI 2-20 mouth. ity of NOPHEN 04:03: [place] (PERCOCET 17 Medical ORAL) Branch dicyclomine 2016-07 Yes 20mg Take 1 Univ ers (BENTYL) 20 2-20 tablet by ity of mg tablet 00:00: mouth (four) Medical times Branch daily. proMETHazin 2016-07 [...] needed for Nausea and Vomiting (N/V). dicyclomine 2016-07 Yes 20mg Take 1 Univ [...] needed for Nausea and Vomiting (N/V). dicyclomine 2016-07 No 20mg Take 1 Uni vers (BENTYL) 20 2-20 01-15 tablet by it y of mg tablet 00:00: 00:[place] (four[place] Medical times Branch daily. proMETHazin 2016- [...] Codeine #4 Codeine #4 [facility] Macrobid Macrobid Yes Na Gamble [address] [facility] [address] [facility] Pantoprazol Pantoprazol Yes Na Gamble [address] [facility] e Sodium e Sodium [facility] Collagenase Collagenase Yes Na Gamble [address] [facility] applicatio [facility] to Memoria affected l area [facility] Vital Signs Vital Name Observation Time Observation Value Comments Source Systolic blood 2021-10-16 06:00:00 144 mm[Hg] [facility] Diastolic blood 2021-10-16 06:00:00 93 mm[Hg] [facility] Heart rate 2021-10-16 06:00:00 92 /min [facility] Respiratory rate 2021-10-16 06:00:00 22 /min [facility] Oxygen saturation in 2021-10-16 04:00:00 94 /min [facility] Arterial blood by [facility] Pulse oximetry Branch Body temperature 2021-10-16 03:45:00 37.06 Abi [facility] Body height 2021-10-16 03:45:00 149.9 cm [facility] [place] [facility] Body weight 2021-10-16 03:45:00 127.461 kg [facility] [place] [facility] BMI 2021-10-16 03:45:00 56.76 kg/m2 [facility] [place] [facility] Systolic blood 2021-09-29 03:18:00 113 mm[Hg] Univer sity of [facility] [place] [facility] Diastolic blood 2021-09-29 03:18:00 85 mm[Hg] Unive rsity of [facility] [place] [facility] Heart rate 2021-09-29 03:18:00 96 /min [facility] [place] [facility] Respiratory rate 2021-09-29 03:18:00 18 /min [facility] [place] [facility] Oxygen saturation in 2021-09-29 03:18:00 93 /min [facility] of Arterial blood by [place] [facility] Pulse oximetry Branch Body temperature 2021-09-29 01:01:16 36.89 Abi [facility] [place] [facility] Body weight 2021-09-28 23:13:00 127.461 kg [facility] [place] [facility] BMI 2021-09-28 23:13:00 56.76 kg/m2 [facility] [place] [facility] Systolic blood 2021-08-08 21:53:00 142 mm[Hg] Univer sity of [facility] [place] [facility] Diastolic blood 2021-08-08 21:53:00 88 mm[Hg] Unive rsity of [facility] [place] [facility] Heart rate 2021-08-08 21:53:00 96 /min [facility] [place] [facility] Body temperature 2021-08-08 21:53:00 36.06 Abi [facility] [place] [facility] Respiratory rate 2021-08-08 21:53:00 18 /min [facility] [place] [facility] Oxygen saturation in 2021-08-08 21:53:00 96 /min University of Arterial blood by [place] [facility] Pulse oximetry Branch Body weight 2021-08-08 09:48:00 138.801 kg [facility] [place] [facility] BMI 2021-08-08 09:48:00 61.80 kg/m2 [facility] [place] [facility] Body height 2021-08-03 10:27:00 149.9 cm [facility] [place] [facility] Systolic blood 2021-08-01 03:50:00 142 mm[Hg] Univer [facility]ity of [facility] [place] [facility] Diastolic blood 2021-08-01 03:50:00 95 mm[Hg] Unive rsity of [facility] [place] [facility] Heart rate 2021-08-01 03:50:00 93 /min [facility] [place] [facility] Respiratory rate 2021-08-01 03:50:00 17 /min [facility] [place] [facility] Oxygen saturation in 2021-08-01 03:50:00 98 /min University of Arterial blood by [facility] Pulse oximetry Branch Body temperature 2021-07-31 20:39:00 36.5 Abi [facility] [place] [facility] Body weight 2021-07-31 20:39:00 136.079 kg [facility] [place] [facility] BMI 2021-07-31 20:39:00 60.59 kg/m2 [facility] [place] [facility] Systolic blood 2021-07-30 01:46:00 134 mm[Hg] Univer sity of [facility] [place] [facility] Diastolic blood 2021-07-30 01:46:00 100 mm[Hg] Unive rsity of [facility] [place] [facility] Heart rate 2021-07-30 01:46:00 102 /min [facility] [place] [facility] Respiratory rate 2021-07-30 01:46:00 22 /min [facility] [place] [facility] Oxygen saturation in 2021-07-30 01:46:00 96 /min University of Arterial blood by [facility] Pulse oximetry Branch Body temperature 2021-07-29 20:52:00 36.67 Abi [facility] [place] [facility] Body weight 2021-07-29 20:52:00 136.079 kg [facility] [place] [facility] BMI 2021-07-29 20:52:00 60.59 kg/m2 [facility] [place] [facility] Systolic blood 2021-06-07 23:30:00 175 mm[Hg] Univer [facility]ity of [facility] [place] [facility] Diastolic blood 2021-06-07 23:30:00 107 mm[Hg] Unive rsity of [facility] [place] [facility] Heart rate 2021-06-07 23:30:00 81 /min [facility] [place] [facility] Respiratory rate 2021-06-07 23:30:00 21 /min [facility] [place] [facility] Oxygen saturation in 2021-06-07 23:30:00 97 /min [facility] Pulse oximetry Branch Body weight 2021-06-07 21:55:00 136.079 kg [facility] [place] [facility] BMI 2021-06-07 21:55:00 60.59 kg/m2 [facility] [place] [facility] Body temperature 2021-06-07 21:55:00 37.44 Abi [facility] [place] [facility] Systolic blood 2020-11-21 [...] 97 /min University of Arterial blood by [facility] Pulse oximetry Branch Body temperature 2020-11-20 23:27:00 36.83 Abi [facility] [place] [facility] Body height 2020-11-20 23:27:00 149.9 cm [facility] [place] [facility] Body weight 2020-11-20 23:27:00 136.079 kg [facility] [place] [facility] BMI 2020-11-20 23:27:00 60.59 kg/m2 [facility] [place] [facility] Systolic [...] 97 /min University of Arterial blood by [facility] Pulse oximetry Branch Body temperature 2020-11-20 23:27:00 36.83 Abi [facility] [place] [facility] Body height 2020-11-20 23:27:00 149.9 cm [facility] Body weight 2020-11-20 23:27:00 136.079 kg [facility] BMI 2020-11-20 23:27:00 60.59 kg/m2 [facility] Respitory Rate 2018-05-22 17:30:00 Memori al Jason Systolic (mm Hg) 2018-05-22 17:30:00 Erwin rial [place] Diastolic (mm Hg) 2018-05-22 17:30:00 Mem orial [place] Temperature Oral (F) 2018-05-22 17:30:00 98.4 F [facility] Jason Temperature Oral (F) 2018-05-22 16:23:00 98.6 F [facility] [place] Systolic (mm Hg) 2018-05-22 16:23:00 Erwin rial [place] Diastolic (mm Hg) 2018-05-22 16:23:00 Mem orial Jason Respitory Rate 2018-05-22 14:00:00 Memori al Jason Systolic (mm Hg) 2018-05-22 14:00:00 Erwin rial Jason Diastolic (mm Hg) 2018-05-22 14:00:00 Mem orial Jason Respitory Rate 2018-05-22 13:30:00 Memori al Jason BMI Calculated 2018-05-22 10:16:00 Memori al Jason Height 2018-05-22 10:16:00 149.86 cm [facility] [place] Weight 2018-05-22 10:16:00 [facility] [place] Heart Rate 2018-05-22 10:16:00 [facility] Jason Temperature Oral (F) 2018-05-22 10:16:00 97.9 F [facility] Jason Temperature Oral (F) 2017-11-19 13:40:00 97.2 F [facility] [place] Systolic (mm Hg) 2017-11-19 13:40:00 Erwin rial Jason Diastolic (mm Hg) 2017-11-19 13:40:00 Mem orial Jason Heart Rate 2017-11-19 13:40:00 Memorial Jason Respitory Rate 2017-11-19 13:40:00 Memori al [place] Heart Rate 2017-11-19 05:24:00 [facility] Jason Systolic (mm Hg) 2017-11-19 05:24:00 Erwin rial Jason Diastolic (mm Hg) 2017-11-19 05:24:00 Mem orial Jason Respitory Rate 2017-11-19 05:24:00 Memori al Jason Temperature Oral (F) 2017-11-19 05:24:00 98.1 F [facility] Jason Respitory Rate 2017-11-19 01:15:00 Memori al Jason Systolic (mm Hg) 2017-11-19 01:15:00 Erwin rial [place] Diastolic (mm Hg) 2017-11-19 01:15:00 Mem orial [place] Heart Rate 2017-11-19 01:15:00 [facility] [place] Temperature Oral (F) 2017-11-19 01:15:00 98.1 F [facility] Jason Weight 2017-11-18 14:00:00 [facility] [place] Weight 2017-11-17 14:00:00 [facility] [place] Weight 2017-11-15 14:00:00 [facility] Jason BMI Calculated 2017-11-15 05:43:00 Memori al [place] Height 2017-11-15 05:43:00 162.56 cm [facility] [place] Height 2017-11-14 22:41:00 149.86 cm [facility] Jason BMI Calculated 2017-11-14 22:41:00 Memori al Jason Procedures Procedure Date / Time Performing Clinician Source Performed MAGNESIUM 2021-10-16 04:12:00 Singer [facility] COMP. METABOLIC PANEL 2021-10-16 04:12:00 Sidney Hook [facility] ([id number] CBC WITH DIFF 2021-10-16 04:12:[address] [facility] CT HEAD WO CONTRAST 2021-09-29 00:15:29 Roger Yanez [facility] URINALYSIS 2021-09-28 23:53:[address] [facility] COMP. METABOLIC PANEL 2021-09-28 23:52:00 Rogre Yanez Cici [facility] ([id number]) [facility] CBC WITH DIFF 2021-09-28 23:52:[address] [facility] XR CHEST 1 VW 2021-08-07 03:03:[address] [facility] COMP. METABOLIC PANEL 2021-08-06 11:57:00 Mari Wong [facility] ([id number]) Medical Branch CBC WITH DIFF 2021-08-06 11:57:[address] [facility] BASIC METABOLIC PANEL (NA, 2021-08-04 [facility], GLUCOSE, BUN, [facility] CREATININE, [place]) CBC WITH DIFF 2021-08-04 12:09[facility] 2021-08-04 00:40:00 [facility] URINE CULTURE 2021-08-04 00:40:[address] [facility] FECES CULTURE 2021-08-03 14:58:00 [facility] (GUAIAC[facility] BLOOD 2021-08-03 14:58[facility]00 [facility] 2021-08-03 14:58:00 [facility] BY PCR 2021-08-03 14:58:00 [facility] URINE DRUG (IMMUNOASSAY) - 2021-08-03 10:11:00 Ellie [facility] COMPREHENSIVE DRUG SCREEN [facility] COVID-19 (ID NOW RAPID 2021-08-03 07:33:00 Carmelita Serna [facility] TESTING) Medical Branch LAB ONLY COVID 2021-08-03 07:33:00 Carmelita Serna [facility] INTERPRETATION [facility] COMP. METABOLIC PANEL 2021-08-03 06:18:00 Carmelita Serna [facility] ([id number]) Medical Bly CBC WITH DIFF 2021-08-03 05:40:00 Carmelita Serna [facility] URINALYSIS 2021-08-01 01:43:00 Stephanie Balderrama [facility] LIPASE 2021-08-01 01:40:00 Stephanie Balderrama [facility] COMP. METABOLIC PANEL 2021-08-01 01:40:00 Stephanie Balderrama [facility] ([id number]) [facility] CBC WITH DIFF 2021-08-01 01:38:00 Stephanie Balderrama [facility] XR CHEST 1 VW 2021-07-31 23:40:19 Stephanie Balderrama [facility] ASSIGNMENT OF BENEFITS 2021-07-31 22:05:40 Doctor Unassigned, [facility] [place] Medical Bly NOTICE OF PRIVACY 2021-07-31 22:04:58 Doctor Unassigned, [facility] PRACTICES [place] [facility] CONSENT/REFUSAL FOR 2021-07-31 22:04:33 Doctor Beto, [facility] DIAGNOSIS AND TREATMENT [place] [facility] URINALYSIS 2021-07-29 23:09:00 Lynette Fonseca [facility] BLOOD CULTURE SCREEN 2021-07-29 23:04:00 Lynette Fonseca [facility] D-DIMER 2021-07-29 22:49:00 Lynette Fonseca [facility] COVID-19 (ID NOW RAPID 2021-07-29 22:48:00 Lynette Fonseca [facility] TESTING) [facility] COMP. METABOLIC PANEL 2021-07-29 22:17:00 Lynette Fonseca [facility] ([id number]) [facility] CBC WITH DIFF 2021-07-29 22:17:00 Lynette Fonseca [facility] XR CHEST 1 VW 2021-07-29 21:47:19 Lynette Fonseca [facility] COMP. METABOLIC PANEL 2021-06-07 22:20:00 Sidney Hook [facility] ([id number]) [facility] CBC WITH DIFF 2021-06-07 22:20:00 Sidney Hook o [facility] CT ABDOMEN PELVIS WO 2020-11-21 00:39:40 Madonna Helms [facility] CONTRAST [facility] LIPASE 2020-11-21 00:06:00 Madonna Helms [facility] COMP. 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 Plan of Care Planned Activity Planned Date Details Comments Source Future Scheduled 2022-07-[address] [facility] 00:[facility]:00 (procedure) [code = Medical Center 21870508] Future Scheduled 2021-03-[address] [facility] - Test 00:00:00 (Season Ended) [code = Medic al Center INFLUENZA VACCINE (Season Ended)] Future Scheduled 2020-07-[address] [facility] - Test 00:00:00 (12+) [code = Medical Center DEPRESSION SCREENING (12+)] Future Scheduled 2019-10-[address] [facility] - Test 00:00:00 measurement Medical Center (procedure) [code = 23051747] Future Scheduled 2004 DTAP/TDAP/TD VACCINES CH I [...] 00:00:00 protein (procedure) Medical Center [code = 200229296] Future Scheduled [address] [facility] - Test 00:00:00 0-64 YRS (1 of 1 - Medical C enter PPSV23) [code = PNEUMOCOCCAL VACCINE 0-64 YRS (1 of 1 - PPSV23)] Encounters Start End Encounter Admission Attending Care Care Encounter Source Date/Time Date/Time Type Type Clinicians Facility Department ID 2021-10-[address] [facility] EM[facility]ENCY ROOM [id number] [place] 11:10:01 0328 Health 2021-08-09 Out[facility] Nichole[facility] [id number] [facility] 13:45:16 Eren [id number] [facility] 2021-08-09 Outpatient Nichole, STLMLC [facility] [id number] [facility] 13:17:39 Eren [id number] [facility] 2021-08-09 Outpatient Nichole[facility] STLML[facility] [id number] [facility] 13:16:34 Eren [id number] [facility] 2021-10-15 2021-10-16 Emergency X SINGER [facility] ERT [id number] Univers 22:45:00 01:52:00 SIDNEY saba [facility] 2021-10-15 2021-10-16 Emergency Singer [facility] [id number] Univers 22:45:00 01:52:00 Sidney DURAN [id number] i ty of [place] [id number] [facility] [id number] [address] 2021-09-28 2021-09-28 Emergency Roger GOODE [facility] ERT [id number] Univers 18:08:00 22:51:00 ity [facility] 2021-09-28 2021-09-28 Emergency Roger Yanez [facility] [id number] Univers 18:08:00 22:51:00 Cici DURAN [id number] i ty of [place] [id number] [facility] [id number] [place] [address] Branch 2021-08-09 2021-08-09 Transition DEVANTE Zepeda [id number] Univers 00:00:00 00:00:00 of Care Kamila STEVENSY [id number] ity of [place] 4.2.7.2.[address] [place] [address] [id number] [facility] 403 Branch 2021-08-02 2021-08-08 Inpatient X BETSY [facility] [id number] Univers 19:07:00 19:39:00 [facility] 2021-08-02 2021-08-08 [facility] [id number] Univers 19:07:00 19:39:00 Encounter May Brambila [id number] ity of [place] 4.2.7.2.[address] [place] [id number] 2021-07-31 2021-07-31 Emergency X [facility] ERT [id number] Univers 14:41:00 22:07:00 STEPHANIE saba [facility] 2021-07-31 2021-07-31 Emergency Cacace, [facility] [id number] Univers 14:41:00 22:07:00 Stephanie DURAN [id number] ity of [place] 4.2.7.2.[address] [place] [id number] 2021-07-29 2021-07-29 Emergency X [facility] ERT [id number] Univers 14:49:00 21:33:00 LYNETTE saba [facility] 2021-07-29 2021-07-29 Emergency [facility] [id number] Univers 14:49:00 21:33:00 Lynette DURAN [id number] ity of [place] 4.2.7.2.6 [facility] [id number] [address] 2021-07-11 2021-07-11 Laboratory Only, Ang Db Test [facility] 1.2.8 40.114 [id number] Univers 18:00:00 18:15:[address] [facility] [id number] ity of [place] [id number] Tim as VICENTA?BLEA [id number] [address] MEDICAL OFFICE BUILDING 2021-07-11 2021-07-11 Outpatient Damaso LUNDBERG [facility] [id number] Univers 18:00:00 18:00:00 SIERRA saba [facility] 2021-07-05 2021-07-05 ambulatory [facility] [id number] [facility] 2021-07-04 2021-07-04 ambulatory [facility] [id number] [facility] 2021-06-07 2021-06-07 Emergency X [facility] ERT [id number] Univers 15:54:00 18:34:00 SIDNEY wandy [facility] 2021-06-07 2021-06-07 Emergency [facility] [id number] Univers 15:54:00 18:34:00 Sidney DURAN [id number] [facility] [id number] [place] [facility] [id number] [address] 2021-04-25 2021-04-25 Outpatient [facility] [id number] [facility] 2021-04-11 2021-04-11 Outpatient [facility] [id number] [facility] 2021-02-21 2021-02-21 Outpatient STLMLC [facility] [id number] [facility] 2021-01-31 2021-01-31 Outpatient [facility] [id number] [facility] 2021-01-03 2021-01-03 Outpatient STLMLC [facility] [id number] [facility]00 [facility] 2020-11-20 2020-11-20 [facility] [id number] [facility] 18:22:00 22:21:00 Madonna Duran [id number] ity [facility] [id number] [facility] [id number] [address] 2020-11-20 2020-11-20 Emergency [facility] [id number] 18:22:00 22:21:00 Sonyo Cassandra Mora[place]um [id number] [place] 4.2.7.2.686 [place] [id number] [facility] 2020-11-20 2020-11-20 Emergency X NICKYMESILLA [facility] [id number] 18:22:00 18:22:[address] [facility] 2019-03-02 2019-03-04 Phone nullFlavo MNA [id number] Memoria 16:11:26 04:59:59 Message r Neurosurger [address] [facility] 2019-02-10 2019-02-12 Phone nullFlavo MNA [id number] 55 Memoria 16:16:47 04:59:59 Message r Neurosurger [address] [facility] 2019-01-26 2019-01-28 Phone nullFlavo MNA [id number] Memoria 15:52:03 04:59:59 Message r Neurosurger [address] [facility] 2019-01-01 2019-01-03 Phone nullFlavo MNA [id number] 55 Memoria 18:55:03 04:59:59 Message r Neurosurger [address] [facility] 2018-05-22 2018-05-22 Emergency nullFlavo [facility] [id number] Memoria 10:12:00 18:24:00 damaso Gomez [address] [place] [address] 2018-02-18 2018-02-18 [facility] [id number] 11:15:00 11:15:00 t [facility] Medicine Outpati ent Clinics 2018-01-27 2018-01-27 [facility] [id number] 11:30:00 11:30:[address] [place] - Drive [facility] Clinics 2018-01-03 2018-01-03 [facility] [id number] 15:41:00 15:41:[address] [place] - Drive [facility] Clinics 2017-12-23 2017-12-23 [facility] [id number] 15:42:00 15:42:00 [place] [facility] Luke [facility] - Drive [facility] Clinics 2017-12-17 2017-12-17 [facility] [id number] 11:00:00 11:00:00 [facility] [place] 2017-11-14 2017-11-19 Inpatient [facility] [id number] [facility] 22:40:00 17:28:[address] Results Test Description Test Time Test Comments Results Result Comments Source CBC WITH DIFF 2021-10-16 04:47:32 Test Item Value Reference Range Interpretation Comme nts WBC (test code = 6690-2) See_Comment H [A utomated message] The system which ge nerated this result transmit lester reference range: 4.20 - 1 0.70 10*3/?L. The reference r boubacar was not used to interpr et this result as normal/abnor mal. RBC (test code = 789-8) See_Comment [Au tomated message] The system which ge nerated this result transmit lester reference range: 4.26 - 5 .52 10*6/?L. The reference r boubacar was not used to interpr et this result as normal/abnor mal. HGB (test code = 718-7) 16.1 g/dL 12.2-16.4 HCT (test code = 4544-3) 47.2 % 38.4-49.3 MCV (test code = 787-2) 86.1 fL 81.7-95.6 MCH (test code = 785-6) 29.4 pg 26.1-32.7 MCHC (test code = 786-4) 34.1 g/dL 31.2-35.0 RDW-SD (test code = 62064-9) 45.7 fL 38.5-51.6 RDW-CV (test code = 788-0) 14.6 % 12.1-15.4 PLT (test code = 777-3) See_Comment [Au tomated message] The system which ge nerated this result transmit lester reference range: 150 - 32 8 10*3/?L. The reference range was not used to interpret th is result as normal/abnormal . MPV (test code = 99656-9) 11.0 fL 9.8-13.0 NRBC/100 WBC (test code = See_Comment [ Automated message] The 9625124531) system which ge nerated this result transmit lester reference range: 0.0 - 10 .0 /100 WBCs. The reference r boubacar was not used to interpr et this result as normal/abnor mal. NRBC x10^3 (test code = <0.01 See_Comment [Au tomated message] The 9853456811) system which ge nerated this result transmit lester reference range: 10*3/?L. The reference range was not u sed to interpret this result as normal/abnormal . GRAN MAT (NEUT) % (test code 72.2 % = 770-8) IMM GRAN % (test code = 0.60 % [id number]) LYMPH % (test code = 736-9) 17.7 % MONO % (test code = 5905-5) 7.4 % EOS % (test code = 713-8) 1.8 % BASO % (test code = 706-2) 0.3 % GRAN MAT x10^3(ANC) (test 9.09 10*3/uL 1.99-6.95 H code = 9222653665) IMM GRAN x10^3 (test code = 0.07 10*3/uL 0.00-0.06 H 2570109706) LYMPH x10^3 (test code = 2.22 10*3/uL 1.09-3.23 731-0) MONO x10^3 (test code = 0.93 10*3/uL 0.36-1.02 742-7) EOS x10^3 (test code = 0.22 10*3/uL 0.06-0.53 711-2) BASO x10^3 (test code = 0.04 10*3/uL 0.01-0.09 704-7) Lab Interpretation (test Abnormal code = 77232-2) [facility]. METABOLIC PANEL ([id number])2021-10-16 04:36:41 Test Item Value Reference Range Interpretation Comments NA (test code = 138 mmol/L 135-145 7084563464) K (test code = 4.6 mmol/L 3.5-5.0 4770314344) CL (test code = 105 mmol/L 98-108 1536987909) CO2 TOTAL (test code = 21 mmol/L 23-31 L 0673350676) AGAP (test code = 2-16 8118450044) BUN (test code = 13 mg/dL 7-23 9609264376) GLUCOSE (test code = 167 mg/dL 70-110 H 0831970814) CREATININE (test code = 0.48 mg/dL 0.60-1.25 L 7955481567) TOTAL BILI (test code = 0.8 mg/dL 0.1-1.9 2357481593) CALCIUM (test code = 9.3 mg/dL 8.6-10.6 8797362921) T PROTEIN (test code = 7.6 g/dL 6.3-8.2 9515607170) ALBUMIN (test code = 4.2 g/dL 3.5-5.0 9684351158) ALK PHOS (test code = 98 U/L 34-122 0296832982) ALTv (test code = 71 U/L 5-50 H 1742-6) AST(SGOT) (test code = 36 U/L 13-40 1763800864) eGFR (test code = mL/min/1.73m2 2057603931) ARPITA (test code = ARPITA) Association of [...] tests). Lab Interpretation Abnormal (test code = 45345-6) [facility] 04[facility]41 Test Item Value Reference Range Interpretation Comments MAGNESIUM (test code = 6409241544) 1.6 mg/dL 1.7-2.4 L Lab Interpretation (test code = Abnormal 80731-7) [facility] WITH [id number] 00:23:28 Test Item Value Reference Range Interpretation Comments WBC (test code = See_Comment H [Automated 6690-2) message] The sy stem which generated this result transmitted reference range : 4.20 - 10.70 10*3/?L. The reference range was not used to interpret this result as normal/abnormal . RBC (test code = See_Comment H [Automated 789-8) message] The sy stem which generated this result transmitted reference range : 4.26 - 5.52 10*6/?L. The reference range was not used to interpret this result as normal/abnormal . HGB (test code = 18.3 g/dL 12.2-16.4 H 718-7) HCT (test code = 55.6 % 38.4-49.3 H 4544-3) MCV (test code = 89.0 fL 81.7-95.6 787-2) MCH (test code = 29.3 pg 26.1-32.7 785-6) MCHC (test code = 32.9 g/dL 31.2-35.0 786-4) RDW-SD (test code = 47.6 fL 38.5-51.6 27285-6) RDW-CV (test code = 15.1 % 12.1-15.4 788-0) PLT (test code = See_Comment H [Automated 777-3) message] The sy stem which generated this result transmitted reference range : 150 - 328 10*3/ ?L. The reference r boubacar was not used to interpret this result as normal/abnormal . MPV (test code = 10.5 fL 9.8-13.0 51136-9) NRBC/100 WBC (test See_Comment [Automat ed code = 7997131535) message] The system which generated this result transmitted reference range : 0.0 - 10.0 /100 WBCs. The refer ence range was not u sed to interpret th is result as normal/abnormal . NRBC x10^3 (test code <0.01 See_Comment [Auto mated = 4805103667) message] The s ystem which generated this result transmitted reference range : 10*3/?L. The reference range was not used to interpret this result as normal/abnormal . GRAN MAT (NEUT) % 66.7 % (test code = 770-8) IMM GRAN % (test code 0.40 % = 9381778023) LYMPH % (test code = 24.4 % 736-9) MONO % (test code = 6.6 % 5905-5) EOS % (test code = 1.5 % 713-8) BASO % (test code = 0.4 % 706-2) GRAN MAT x10^3(ANC) 7.43 10*3/uL 1.99-6.95 H (test code = 2000701935) IMM GRAN x10^3 (test 0.04 10*3/uL 0.00-0.06 code = 3069385557) LYMPH x10^3 (test code 2.72 10*3/uL 1.09-3.23 = 731-0) MONO x10^3 (test code 0.74 10*3/uL 0.36-1.02 = 742-7) EOS x10^3 (test code = 0.17 10*3/uL 0.06-0.53 711-2) BASO x10^3 (test code 0.04 10*3/uL 0.01-0.09 = 704-7) Lab Interpretation Abnormal (test code = 28663-0) [facility]. METABOLIC PANEL ([id number])2021-09-29 00:18:07 Test Item Value Reference Range Interpretation Comments NA (test code = 139 mmol/L 135-145 9509825686) K (test code = 4.8 mmol/L 3.5-5.0 2727605566) CL (test code = 104 mmol/L 98-108 3437501041) CO2 TOTAL (test code = 22 mmol/L 23-31 L 8545746089) AGAP (test code = 2-16 3042152040) BUN (test code = 15 mg/dL 7-23 9518188353) GLUCOSE (test code = 93 mg/dL 70-110 8804326674) CREATININE (test code = 0.67 mg/dL 0.60-1.25 7492653120) TOTAL BILI (test code = 0.7 mg/dL 0.1-1.6 3163351155) CALCIUM (test code = 9.8 mg/dL 8.6-10.6 9011692004) T PROTEIN (test code = 8.9 g/dL 6.3-8.2 H 3086385066) ALBUMIN (test code = 4.9 g/dL 3.5-5.0 3845341563) ALK PHOS (test code = 126 U/L 34-122 H 1119261323) ALTv (test code = 43 U/L 5-50 1742-6) AST(SGOT) (test code = 28 U/L 13-40 3080154366) eGFR (test code = mL/min/1.73m2 0851173696) ARPITA (test code = ARPITA) Association of [...] tests). Lab Interpretation Abnormal (test code = 39693-5) [facility]. METABOLIC PANEL ([id number])2021-08-06 12:48:40 Test Item Value Reference Range Interpretation Comments NA (test code = 137 mmol/L 135-145 5654981755) K (test code = 4.5 mmol/L 3.5-5.0 0015232378) CL (test code = 107 mmol/L 98-108 7645704892) CO2 TOTAL (test code = 24 mmol/L 23-31 5498753192) AGAP (test code = 2-16 9740080868) BUN (test code = 16 mg/dL 7-23 0620570263) GLUCOSE (test code = 116 mg/dL 70-110 H 6762167204) CREATININE (test code = 0.62 mg/dL 0.60-1.25 8923671991) TOTAL BILI (test code = 0.4 mg/dL 0.1-1.0 9647028280) CALCIUM (test code = 8.7 mg/dL 8.6-10.6 9348472202) T PROTEIN (test code = 7.5 g/dL 6.3-8.2 3277894716) ALBUMIN (test code = 3.9 g/dL 3.5-5.0 4081717832) ALK PHOS (test code = 93 U/L 34-122 8400317529) ALTv (test code = 40 U/L 5-50 1742-6) AST(SGOT) (test code = 51 U/L 13-40 H 8670719424) eGFR (test code = mL/min/1.73m2 8720793739) ARPITA (test code = ARPITA) Association of [...] tests). Lab Interpretation Abnormal (test code = 97538-9) [facility] WITH [id number] 12:21:36 Test Item Value Reference Range Interpretation Comments WBC (test code = See_Comment [Automated 9754-2) message] The sy stem which generated this [...] RDW-SD (test code = 50.6 fL 38.5-51.6 18195-4) RDW-CV (test code = 15.3 % 12.1-15.4 788-0) PLT (test code = See_Comment H [Automated 777-3) message] The sy stem which generated this result transmitted reference range : 150 - 328 10*3/ ?L. The reference r boubacar was not used to interpret this result as normal/abnormal . MPV (test code = 10.3 fL 9.8-13.0 89726-5) NRBC/100 WBC (test See_Comment [Automat ed code = 2107665396) message] The system which generated this result transmitted reference range : 0.0 - 10.0 /100 WBCs. The refer ence range was not u sed to interpret th is result as normal/abnormal . NRBC x10^3 (test code <0.01 See_Comment [Auto mated = 2375900780) message] The s ystem which generated this result transmitted reference range : 10*3/?L. The reference range was not used to interpret this result as normal/abnormal . GRAN MAT (NEUT) % 61.5 % (test code = 770-8) IMM GRAN % (test code 0.80 % = 1118098069) LYMPH % (test code = 27.8 % 736-9) MONO % (test code = 6.9 % 5905-5) EOS % (test code = 2.4 % 713-8) BASO % (test code = 0.6 % 706-2) GRAN MAT x10^3(ANC) 6.07 10*3/uL 1.99-6.95 (test code = 0908842723) IMM GRAN x10^3 (test 0.08 10*3/uL 0.00-0.06 H code = 1598009763) LYMPH x10^3 (test code 2.75 10*3/uL 1.09-3.23 = 731-0) MONO x10^3 (test code 0.68 10*3/uL 0.36-1.02 = 742-7) EOS x10^3 (test code = 0.24 10*3/uL 0.06-0.53 711-2) BASO x10^3 (test code 0.06 10*3/uL 0.01-0.09 = 704-7) Lab Interpretation Abnormal (test code = 28301-8) [facility] Metabolic Panel (NA, K, CL, CO2, GLUCOSE, BUN, CREATININE, CA)2021-08-04 12:40:30 Test Item Value Reference Range Interpretation Comments NA (test code = 139 mmol/L 135-145 0026886388) K (test code = 3.9 mmol/L 3.5-5.0 0800354717) CL (test code = 108 mmol/L 98-108 3056696267) CO2 TOTAL (test code = 25 mmol/L 23-31 8914554654) AGAP (test code = 2-16 1420735664) BUN (test code = 14 mg/dL 7-23 2444827279) GLUCOSE (test code = 107 mg/dL 70-110 7962967849) CREATININE (test code = 0.61 mg/dL 0.60-1.25 6446309758) CALCIUM (test code = 8.1 mg/dL 8.6-10.6 L 7372115048) eGFR (test code = mL/min/1.73m2 9819097295) ARPITA (test code = ARPITA) Association of [...] tests). Lab Interpretation Abnormal (test code = 98955-5) [facility] with Nffcfsghrvwa3370-14-09 12:23:51 Test Item Value Reference Range Interpretation Comments WBC (test code = See_Comment [Automated 3919-2) message] The sy stem which generated this result transmitted reference range : 4.20 - 10.70 10*3/?L. The reference range was not used to interpret this result as normal/abnormal . RBC (test code = See_Comment [Automated 224-0) message] The sy stem which generated this [...] RDW-SD (test code = 49.3 fL 38.5-51.6 64017-3) RDW-CV (test code = 15.3 % 12.1-15.4 788-0) PLT (test code = See_Comment H [Automated 777-3) message] The sy stem which generated this result transmitted reference range : 150 - 328 10*3/ ?L. The reference r boubacar was not used to interpret this result as normal/abnormal . MPV (test code = 10.2 fL 9.8-13.0 23977-7) NRBC/100 WBC (test See_Comment [Automat ed code = 0336578336) message] The system which generated this result transmitted reference range : 0.0 - 10.0 /100 WBCs. The refer ence range was not u sed to interpret th is result as normal/abnormal . NRBC x10^3 (test code <0.01 See_Comment [Auto mated = 3993682015) message] The s ystem which generated this result transmitted reference range : 10*3/?L. The reference range was not used to interpret this result as normal/abnormal . GRAN MAT (NEUT) % 56.7 % (test code = 770-8) IMM GRAN % (test code 0.60 % = 1746810118) LYMPH % (test code = 31.1 % 736-9) MONO % (test code = 8.7 % 5905-5) EOS % (test code = 2.4 % 713-8) BASO % (test code = 0.5 % 706-2) GRAN MAT x10^3(ANC) 4.83 10*3/uL 1.99-6.95 (test code = 0372174329) IMM GRAN x10^3 (test 0.05 10*3/uL 0.00-0.06 code = 5228257487) LYMPH x10^3 (test code 2.64 10*3/uL 1.09-3.23 = 731-0) MONO x10^3 (test code 0.74 10*3/uL 0.36-1.02 = 742-7) EOS x10^3 (test code = 0.20 10*3/uL 0.06-0.53 711-2) BASO x10^3 (test code 0.04 10*3/uL 0.01-0.09 = 704-7) Lab Interpretation Abnormal (test code = 41384-4) [facility]. METABOLIC PANEL ([id number])2021-08-03 06:32:14 Test Item Value Reference Range Interpretation Comments NA (test code = 139 mmol/L 135-145 9371330042) K (test code = 4.5 mmol/L 3.5-5.0 5243954306) CL (test code = 102 mmol/L 98-108 6440421103) CO2 TOTAL (test code = 26 mmol/L 23-31 7083525559) AGAP (test code = 2-16 6242541216) BUN (test code = 16 mg/dL 7-23 9546750030) GLUCOSE (test code = 99 mg/dL 70-110 7381136658) CREATININE (test code = 0.83 mg/dL 0.60-1.25 7479608739) TOTAL BILI (test code = 0.6 mg/dL 0.1-1.0 5295715952) CALCIUM (test code = 9.5 mg/dL 8.6-10.6 6866309693) T PROTEIN (test code = 8.6 g/dL 6.3-8.2 H 6652112222) ALBUMIN (test code = 4.6 g/dL 3.5-5.0 2917710291) ALK PHOS (test code = 121 U/L 34-122 6422998063) ALTv (test code = 58 U/L 5-50 H 1742-6) AST(SGOT) (test code = 32 U/L 13-40 0788316917) eGFR (test code = mL/min/1.73m2 7822187119) ARPITA (test code = ARPITA) Association of [...] tests). Lab Interpretation Abnormal (test code = 99488-1) [facility] WITH [id number] 05:48:31 Test Item Value Reference Range Interpretation Comments WBC (test code = See_Comment H [Automated 3290-2) message] The sy stem which generated this result transmitted reference range : 4.20 - 10.70 10*3/?L. The reference range was not used to interpret this result as normal/abnormal . RBC (test code = See_Comment H [Automated 009-8) message] The sy stem which generated this [...] RDW-SD (test code = 49.1 fL 38.5-51.6 91470-4) RDW-CV (test code = 15.5 % 12.1-15.4 H 788-0) PLT (test code = See_Comment H [Automated 777-3) message] The sy stem which generated this result transmitted reference range : 150 - 328 10*3/ ?L. The reference r boubacar was not used to interpret this result as normal/abnormal . MPV (test code = 10.4 fL 9.8-13.0 55767-9) NRBC/100 WBC (test See_Comment [Automat ed code = 8247338744) message] The system which generated this result transmitted reference range : 0.0 - 10.0 /100 WBCs. The refer ence range was not u sed to interpret th is result as normal/abnormal . NRBC x10^3 (test code <0.01 See_Comment [Auto mated = 8445597830) message] The s ystem which generated this result transmitted reference range : 10*3/?L. The reference range was not used to interpret this result as normal/abnormal . GRAN MAT (NEUT) % 64.8 % (test code = 770-8) IMM GRAN % (test code 0.70 % = 8729440059) LYMPH % (test code = 25.2 % 736-9) MONO % (test code = 6.9 % 5905-5) EOS % (test code = 1.9 % 713-8) BASO % (test code = 0.5 % 706-2) GRAN MAT x10^3(ANC) 7.80 10*3/uL 1.99-6.95 H (test code = 3309879388) IMM GRAN x10^3 (test 0.08 10*3/uL 0.00-0.06 H code = 9461008219) LYMPH x10^3 (test code 3.04 10*3/uL 1.09-3.23 = 731-0) MONO x10^3 (test code 0.83 10*3/uL 0.36-1.02 = 742-7) EOS x10^3 (test code = 0.23 10*3/uL 0.06-0.53 711-2) BASO x10^3 (test code 0.06 10*3/uL 0.01-0.09 = 704-7) Lab Interpretation Abnormal (test code = 35114-7) [facility]. METABOLIC PANEL ([id number])2021-08-01 02:19:08 Test Item Value Reference Range Interpretation Comments NA (test code = 136 mmol/L 135-145 0220982817) K (test code = 4.4 mmol/L 3.5-5.0 1521384781) CL (test code = 99 mmol/L 98-108 1102356382) CO2 TOTAL (test code = 25 mmol/L 23-31 3211599312) AGAP (test code = 2-16 8179550619) BUN (test code = 19 mg/dL 7-23 8604467848) GLUCOSE (test code = 103 mg/dL 70-110 1687664769) CREATININE (test code = 0.70 mg/dL 0.60-1.25 6715820658) TOTAL BILI (test code = 0.7 mg/dL 0.1-1.6 3283391959) CALCIUM (test code = 9.2 mg/dL 8.6-10.6 1824032105) T PROTEIN (test code = 9.4 g/dL 6.3-8.2 H 1606885697) ALBUMIN (test code = 4.8 g/dL 3.5-5.0 2753641933) ALK PHOS (test code = 146 U/L 34-122 H 7940016731) ALTv (test code = 75 U/L 5-50 H 1742-6) AST(SGOT) (test code = 37 U/L 13-40 7034871697) eGFR (test code = mL/min/1.73m2 1114757177) ARPITA (test code = ARPITA) Association of [...] tests). Lab Interpretation Abnormal (test code = 14751-2) [facility]18[facility]27 Test Item Value Reference Range Interpretation Comments LIPASE (test code = 9541001723) 86 U/L 0-220 Lab Interpretation (test code = Normal 56509-8) [facility] WITH [id number] 01:55:49 Test Item Value Reference Range Interpretation Comments WBC (test code = See_Comment H [Automated 6590-2) message] The sy stem which generated this result transmitted reference range : 4.20 - 10.70 10*3/?L. The reference range was not used to interpret this result as normal/abnormal . RBC (test code = See_Comment H [Automated 759-8) message] The sy stem which generated this [...] RDW-SD (test code = 48.7 fL 38.5-51.6 96109-5) RDW-CV (test code = 15.4 % 12.1-15.4 788-0) PLT (test code = See_Comment H [Automated 777-3) message] The sy stem which generated this result transmitted reference range : 150 - 328 10*3/ ?L. The reference r boubacar was not used to interpret this result as normal/abnormal . MPV (test code = 9.9 fL 9.8-13.0 88991-8) NRBC/100 WBC (test See_Comment [Automat ed code = 9738766462) message] The system which generated this result transmitted reference range : 0.0 - 10.0 /100 WBCs. The refer ence range was not u sed to interpret th is result as normal/abnormal . NRBC x10^3 (test code <0.01 See_Comment [Auto mated = 5726148213) message] The s ystem which generated this result transmitted reference range : 10*3/?L. The reference range was not used to interpret this result as normal/abnormal . GRAN MAT (NEUT) % 69.8 % (test code = 770-8) IMM GRAN % (test code 0.50 % = 3088317247) LYMPH % (test code = 20.5 % 736-9) MONO % (test code = 6.8 % 5905-5) EOS % (test code = 1.9 % 713-8) BASO % (test code = 0.5 % 706-2) GRAN MAT x10^3(ANC) 7.72 10*3/uL 1.99-6.95 H (test code = 1379026377) IMM GRAN x10^3 (test 0.05 10*3/uL 0.00-0.06 code = 4287255883) LYMPH x10^3 (test code 2.26 10*3/uL 1.09-3.23 = 731-0) MONO x10^3 (test code 0.75 10*3/uL 0.36-1.02 = 742-7) EOS x10^3 (test code = 0.21 10*3/uL 0.06-0.53 711-2) BASO x10^3 (test code 0.06 10*3/uL 0.01-0.09 = 704-7) Lab Interpretation Abnormal (test code = 99172-1) [id number] 23:33:52 Test Item Value Reference Interpretation Comments Range D-DIMER (test code = See_Comment [Autom ated 4663706666) message] The system which generated this result [...] diagnosis. Lab Interpretation Normal (test code = 40105-5) [facility]. METABOLIC PANEL ([id number])2021-07-29 22:42:48 Test Item Value Reference Range Interpretation Comments NA (test code = 135 mmol/L 135-145 2847663902) K (test code = 4.6 mmol/L 3.5-5.0 9206703007) CL (test code = 102 mmol/L 98-108 0587952817) CO2 TOTAL (test code = 24 mmol/L 23-31 6466731296) AGAP (test code = 2-16 7172576306) BUN (test code = 17 mg/dL 7-23 4610385575) GLUCOSE (test code = 107 mg/dL 70-110 3320541975) CREATININE (test code = 0.60 mg/dL 0.60-1.25 7125606459) TOTAL BILI (test code = 1.0 mg/dL 0.1-1.3 2443929867) CALCIUM (test code = 9.4 mg/dL 8.6-10.6 0540086386) T PROTEIN (test code = 8.6 g/dL 6.3-8.2 H 7111164055) ALBUMIN (test code = 4.6 g/dL 3.5-5.0 7991421604) ALK PHOS (test code = 159 U/L 34-122 H 1686671280) ALTv (test code = 77 U/L 5-50 H 1742-6) AST(SGOT) (test code = 38 U/L 13-40 7879253584) eGFR (test code = mL/min/1.73m2 3568677490) ARPITA (test code = ARPITA) Association of [...] tests). Lab Interpretation Abnormal (test code = 55718-7) [facility] WITH [id number] 22:30:27 Test Item Value Reference Range Interpretation [...] RDW-SD (test code = 48.0 fL 38.5-51.6 94490-9) RDW-CV (test code = 15.1 % 12.1-15.4 788-0) PLT (test code = See_Comment H [Automated 777-3) message] The system which generated this result transmit lester reference range : 150 - 328 10*3/ ?L. The reference range was not u sed to interpret th is result as normal/abnormal . MPV (test code = 10.3 fL 9.8-13.0 98647-3) NRBC/100 WBC (test See_Comment [Automat ed code = [id number]) message] The system which generated this result transmit lester reference range : 0.0 - 10.0 /100 WBCs. The reference range was not used to interpret this result as normal/abnormal . NRBC x10^3 (test code <0.01 See_Comment [Auto mated = [id number]) message] The system which generated this result transmit lester reference range : 10*3/?L. The reference range was not used to interpret this result as normal/abnormal . GRAN MAT (NEUT) % 79.9 % (test code = 770-8) IMM GRAN % (test code 0.50 % = 0391758939) LYMPH % (test code = 11.8 % 736-9) MONO % (test code = 6.6 % 5905-5) EOS % (test code = 0.9 % 713-8) BASO % (test code = 0.3 % 706-2) GRAN MAT x10^3(ANC) 10.70 10*3/uL 1.99-6.95 H (test code = 2538475706) IMM GRAN x10^3 (test 0.07 10*3/uL 0.00-0.06 H code = 1844592274) LYMPH x10^3 (test code 1.58 10*3/uL 1.09-3.23 = 731-0) MONO x10^3 (test code 0.89 10*3/uL 0.36-1.02 = 742-7) EOS x10^3 (test code = 0.12 10*3/uL 0.06-0.53 711-2) BASO x10^3 (test code 0.04 10*3/uL 0.01-0.09 = 704-7) Lab Interpretation Abnormal (test code = 51518-8) [facility]. METABOLIC PANEL ([id number])2021-06-07 23:02:15 Test Item Value Reference Range Interpretation Comments NA (test code = 137 mmol/L 135-145 8898852219) K (test code = 4.5 mmol/L 3.5-5.0 0414828794) CL (test code = 109 mmol/L 98-108 H 0476578951) CO2 TOTAL (test code = 22 mmol/L 23-31 L 7339811141) AGAP (test code = 2-16 0882610388) BUN (test code = 7 mg/dL 7-23 1129836661) GLUCOSE (test code = 87 mg/dL 70-110 6436501290) CREATININE (test code = 0.61 mg/dL 0.60-1.25 9066886220) TOTAL BILI (test code = 0.5 mg/dL 0.1-1.3 5907569329) CALCIUM (test code = 9.0 mg/dL 8.6-10.6 6372432532) T PROTEIN (test code = 6.9 g/dL 6.3-8.2 8086003047) ALBUMIN (test code = 3.5 g/dL 3.5-5.0 0546123036) ALK PHOS (test code = 112 U/L 34-122 0859535099) ALTv (test code = 35 U/L 5-50 1742-6) AST(SGOT) (test code = 21 U/L 13-40 4565610414) eGFR (test code = mL/min/1.73m2 5901061894) ARPITA (test code = ARPITA) Association of [...] tests). Lab Interpretation Abnormal (test code = 61887-1) [facility] WITH [id number] 22:51:57 Test Item Value Reference Range Interpretation [...] RDW-SD (test code = 42.4 fL 38.5-51.6 48899-9) RDW-CV (test code = 13.6 % 12.1-15.4 788-0) PLT (test code = See_Comment H [Automated 777-3) message] The sy stem which generated this result transmitted reference range : 150 - 328 10*3/ ?L. The reference r boubacar was not used to interpret this result as normal/abnormal . MPV (test code = 9.4 fL 9.8-13.0 L 62408-7) NRBC/100 WBC (test See_Comment [Automat ed code = 8833604459) message] The system which generated this result transmitted reference range : 0.0 - 10.0 /100 WBCs. The refer ence range was not u sed to interpret th is result as normal/abnormal . NRBC x10^3 (test code <0.01 See_Comment [Auto mated = 0416764057) message] The s ystem which generated this result transmitted reference range : 10*3/?L. The reference range was not used to interpret this result as normal/abnormal . GRAN MAT (NEUT) % 76.4 % (test code = 770-8) IMM GRAN % (test code 0.40 % = 1607170086) LYMPH % (test code = 16.3 % 736-9) MONO % (test code = 5.6 % 5905-5) EOS % (test code = 1.0 % 713-8) BASO % (test code = 0.3 % 706-2) GRAN MAT x10^3(ANC) 8.81 10*3/uL 1.99-6.95 H (test code = 9145254760) IMM GRAN x10^3 (test 0.05 10*3/uL 0.00-0.06 code = 0541217506) LYMPH x10^3 (test code 1.88 10*3/uL 1.09-3.23 = 731-0) MONO x10^3 (test code 0.64 10*3/uL 0.36-1.02 = 742-7) EOS x10^3 (test code = 0.12 10*3/uL 0.06-0.53 711-2) BASO x10^3 (test code 0.03 10*3/uL 0.01-0.09 = 704-7) Lab Interpretation Abnormal (test code = 07418-7) [facility]APID [facility]2020-11-21 01:01:33 Test Item Value Reference Range Interpretation Comments SARS-CoV-2 Rapid ID NOW Not Detected Not Detected (test code = 82649-5) ARPITA (test code = ARPITA) ID NOW COVID-19 Assay is an isothermal nucleic acid amplification test intended for the qualitative detection of nucleic acid from SARS-CoV-2 viral RNA in nasopharyngeal ([employer] REPRESENTATIVE) specimens. It is used under Emergency Use [...] indicated. Lab Interpretation Normal (test code = 97036-9) [facility]. METABOLIC PANEL (83143)2020-11-21 01:00:33 Test Item Value Reference Range Interpretation Comments NA (test code = 140 mmol/L 135-145 2651842802) K (test code = 4.4 mmol/L 3.5-5.0 6057825998) CL (test code = 103 mmol/L 98-108 4798334030) CO2 TOTAL (test code = 28 mmol/L 23-31 8086263888) AGAP (test code = 2-16 8818734625) BUN (test code = 15 mg/dL 7-23 0375160716) GLUCOSE (test code = 85 mg/dL 70-110 4789472235) CREATININE (test code = 0.60 mg/dL 0.60-1.25 4365362670) TOTAL BILI (test code = 1.1 mg/dL 0.1-1.5 1059018443) CALCIUM (test code = 9.0 mg/dL 8.6-10.6 0375301623) T PROTEIN (test code = 7.8 g/dL 6.3-8.2 5515934927) ALBUMIN (test code = 4.0 g/dL 3.5-5.0 4860317387) ALK PHOS (test code = 166 U/L 34-122 H 1252650435) ALTv (test code = 42 U/L 5-50 1742-6) AST(SGOT) (test code = 32 U/L 13-40 1923499389) eGFR (test code = mL/min/1.73m2 0963128521) ARPITA (test code = ARPITA) Association of [...] tests). Lab Interpretation Abnormal (test code = 92145-1) [facility] 01:00:13 Test Item Value Reference Range Interpretation Comments LIPASE (test code = 7589895149) 57 U/L 0-220 Lab Interpretation (test code = Normal 71697-1) [facility] 00:51:55 Test Item Value Reference Range Interpretation Comments APPEARANCE (test code = Turbid Clear A 7535738258) COLOR (test code = Yellow Yellow 6725620113) PH (test code = 4.8-8.0 5993661537) SP GRAVITY (test code = 1.003-1.030 4934083252) GLU U QUAL (test code = Normal Normal 6060115148) BLOOD (test code = 1+ Negative A 6772718511) KETONES (test code = 20 mg/dL Negative A 5380084563) PROTEIN (test code = 100 mg/dL Negative A 2887-8) UROBILIN (test code = 2.0 mg/dL Normal A 3526982409) BILIRUBIN (test code = Negative Negative 1241831750) NITRITE (test code = Positive Negative A 1092283793) LEUK CHAD (test code = 250/uL Negative A 9269428707) RBC/HPF (test code = See_Comment H [Autom ated message] 8970032489) The system [employer] generated this result transmit lester reference range : 0 - 3 HPF. The refe rence range was not u sed to interpret th is result as normal/abnormal . WBC/HPF (test code = >182 See_Comment H [Autom ated message] 4937469632) The system [employer] generated this result transmit lester reference range : 0 - 5 HPF. The refe rence range was not u sed to interpret th is result as normal/abnormal . BACTERIA (test code = Many Negative A 0448089956) MUCOUS (test code = Moderate Negative LPF A 7668571282) WBC CLUMPS (test code = See_Comment H [Au tomated message] 8446594102) The system [employer] generated this result transmit lester reference range : <=1 HPF. The refere nce range was not u sed to interpret th is result as normal/abnormal . Lab Interpretation (test Abnormal code = 10261-9) [facility] WITH [id number] 00:46:14 Test Item Value Reference Range Interpretation [...] RDW-SD (test code = 47.6 fL 38.5-51.6 14765-5) RDW-CV (test code = 15.2 % 12.1-15.4 788-0) PLT (test code = See_Comment H [Automated 777-3) message] The sy stem which generated this result transmitted reference range : 150 - 328 10*3/ ?L. The reference r boubacar was not used to interpret this result as normal/abnormal . MPV (test code = 9.4 fL 9.8-13.0 L 37344-5) NRBC/100 WBC (test See_Comment [Automat ed code = 6813982557) message] The system which generated this result transmitted reference range : 0.0 - 10.0 /100 WBCs. The refer ence range was not u sed to interpret th is result as normal/abnormal . NRBC x10^3 (test code <0.01 See_Comment [Auto mated = 6988056061) message] The s ystem which generated this result transmitted reference range : 10*3/?L. The reference range was not used to interpret this result as normal/abnormal . GRAN MAT (NEUT) % 61.3 % (test code = 770-8) IMM GRAN % (test code 0.70 % = 0564981095) LYMPH % (test code = 26.4 % 736-9) MONO % (test code = 9.9 % 5905-5) EOS % (test code = 1.3 % 713-8) BASO % (test code = 0.4 % 706-2) GRAN MAT x10^3(ANC) 6.39 10*3/uL 1.99-6.95 (test code = 4873741289) IMM GRAN x10^3 (test 0.07 10*3/uL 0.00-0.06 H code = 3458468446) LYMPH x10^3 (test code 2.75 10*3/uL 1.09-3.23 = 731-0) MONO x10^3 (test code 1.03 10*3/uL 0.36-1.02 H = 742-7) EOS x10^3 (test code = 0.14 10*3/uL 0.06-0.53 711-2) BASO x10^3 (test code 0.04 10*3/uL 0.01-0.09 = 704-7) Lab Interpretation Abnormal (test code = 12446-6) [facility] [id number] 13:03:00 Test Item Value Reference Range Interpretation Comments POC-GLUCOSE METER 140 mg/dL 70-110 H : TESTED A T [facility] 6720 (BEAKER) (test code = [place], 1538) [address]: Stave Hewer/Techni rose ID = [id number] for AARON COTTRELL POCT-GLUCOSE [id number] 09:15:00 Test Item Value Reference Range Interpretation Comments POC-GLUCOSE METER 142 mg/dL 70-110 H : TESTED A T [facility] 6720 (BEAKER) (test code = [facility], 1538) 24[address]: Stave Hewer/Techni rose ID = [id number] for AARON COTTRELL POCT-GLUCOSE [id number] 20:56:00 Test Item Value Reference Range Interpretation Comments POC-GLUCOSE METER 134 mg/dL 70-110 H : TESTED A T [facility] 6720 (BEAKER) (test code = [facility], 1538) [address]: Stave Hewer/Techni rose ID = [id number] for MG LANZA POCT-GLUCOSE [id number] 16:46:00 Test Item Value Reference Range Interpretation Comments POC-GLUCOSE METER 91 mg/dL 70-110 : TESTED A T [facility] 6720 (BEAKER) (test code = [facility], 1538) 959[address]: Stave Hewer/Techni rose ID = [id number] for AARON CABRAL POCT-GLUCOSE [id number] 12:19:00 Test Item Value Reference Range Interpretation Comments POC-GLUCOSE METER 237 mg/dL 70-110 H : TESTED A T [facility] 6720 (BEAKER) (test code = [facility], 1538) 61995: Stave Hewer/Techni rose ID = [id number] for AARON COTTRELL MR, EXTREMITY, LOWER, WITHOUT CONTRAST, [id number] 09:12:00FINAL REPORT MRI of the right and [...] Garza Verified Date/Time: 07/29/2019 09:12:01 Reading Location: [address] Ortho Consult Reading Room MR, EXTREMITY, LOWER, WITHOUT CONTRAST, [id number] 09:12:00FINAL REPORT MRI of the right and [...] Garza Verified Date/Time: 07/29/2019 09:12:01 Reading Location: [address] Ortho Consult Reading Room POCT-GLUCOSE [id number] 08:47:00 Test Item Value Reference Range Interpretation Comments POC-GLUCOSE METER 264 mg/dL 70-110 H : TESTED A T [facility] 6720 (BEAKER) (test code = [facility], 153) 8[address]: Stave Hewer/Techni rose ID = [id number] for VERO ANDRE AARON ISLET CELL AB [id number] 07:43:00 Test Item Value Reference Range Interpretation Comments ISLET CELL AB Refer to individual AUTOVERIFICATION (test Islet Cell Ab code = 2556) and/or Islet Cell Ab Titer results. POCT-GLUCOSE [id number] 21:27:00 Test Item Value Reference Range Interpretation Comments POC-GLUCOSE METER 130 mg/dL 70-110 H : TESTED A T [facility] 6720 (BEAKER) (test code = [facility], 153) 35595: Stave Hewer/Techni rose ID = [id number] for FERNIE APARICIO BLOOD [id number] 13:00:00 Test Item Value Reference Range Interpretation Comments CULTURE (BEAKER) (test No growth in 5 days code = 1095) BLOOD [id number] 13:00:00 Test Item Value Reference Range Interpretation Comments CULTURE (BEAKER) (test No growth in 5 days code = 1095) POCT-GLUCOSE [id number] 12:57:00 Test Item Value Reference Range Interpretation Comments POC-GLUCOSE METER 138 mg/dL 70-110 H : TESTED A T [facility] 6720 (BEAKER) (test code = [facility], 153) 79322: Stave Hewer/Techni rose ID = [id number] for SARAH ALFARO JUAN ANTONIO POCT-GLUCOSE [id number] 08:43:00 Test Item Value Reference Range Interpretation Comments POC-GLUCOSE METER 226 mg/dL 70-110 H : [facility]) (test code = [facility], 153) 44242: Stave Hewer/Techni rose ID = [id number] for [place] LLIS, JUAN ANTONIO POCT-GLUCOSE [id number] 21:11:00 Test Item Value Reference Range Interpretation Comments POC-GLUCOSE METER 254 mg/dL 70-110 H : Notified RN/MD: ([facility]) (test code = TESTED AT [facility] 6720 1538) [facility], [address]: Stave Hewer/Techni rose ID = [id number] for FERNIE APARICIO POCT-GLUCOSE [id number] 21:02:00 Test Item Value Reference Range Interpretation Comments POC-GLUCOSE METER 177 mg/dL 70-110 H : [facility] ([facility]) (test code = [facility], 153) 07190: Stave Hewer/Techni rose ID = [id number] for [place] LLIS, JUAN ANTONIO POCT-GLUCOSE [id number] 12:31:00 Test Item Value Reference Range Interpretation Comments POC-GLUCOSE METER 215 mg/dL 70-110 H : [facility] ([facility]) (test code = [facility], 153) 82414: Stave Hewer/Techni rose ID = [id number] for [place] LLIS, JUAN ANTONIO WOUND CULTURE + GRAM [id number] 10:10:00 Test Item Value Reference Interpretation Comments Range CULTURE ([facility]) PROTEUS MIRABILIS A 1+ Pro teus (test [...] gram negative (BEAKER) (test code = rods 962651) GRAM STAIN RESULT 2+ gram positive (BEAKER) (test code = rods 293260) GRAM STAIN RESULT <1+ gram negative (BEAKER) (test code = coccobacilli 732662) GRAM STAIN RESULT 2+ gram positive (BEAKER) (test code = cocci in pairs 050190) POCT-GLUCOSE [id number] 08:52:00 Test Item Value Reference Range Interpretation Comments POC-GLUCOSE METER 209 mg/dL 70-110 H : TESTED A T [facility] 6720 (BEAKER) (test code = [facility], 153) 65235: Stave Hewer/Techni rose ID = [id number] for JER PORTERE POCT-GLUCOSE [id number] 21:26:00 Test Item Value Reference Range Interpretation Comments POC-GLUCOSE METER 255 mg/dL 70-110 H : TESTED A T [facility] 6720 (BEAKER) (test code = [facility], 153) 71180: Stave Hewer/Techni rose ID = [id number] for CR ISWELL, TIA POCT-GLUCOSE [id number] 17:34:00 Test Item Value Reference Range Interpretation Comments POC-GLUCOSE METER 227 mg/dL 70-110 H : TESTED A T [facility] 6720 (BEAKER) (test code = [facility], [facility]) [address]: Stave Hewer/Techni rose ID = [id number] for CHAVEZ NNY, LETI POCT-GLUCOSE [id number] 11:28:00 Test Item Value Reference Range Interpretation Comments POC-GLUCOSE METER 282 mg/dL 70-110 H : TESTED A T [facility] 6720 (BEAKER) (test code = [facility], 153) 77340: Stave Hewer/Techni rose ID = [id number] for CHAVEZ NNY, LETI POCT-GLUCOSE [id number] 08:19:00 Test Item Value Reference Range Interpretation Comments POC-GLUCOSE METER 329 mg/dL 70-110 H : TESTED A T [facility] 6720 (BEAKER) (test code = [facility], 153) 49197: Stave Hewer/Techni rose ID = [id number] for AARON COTTRELL POCT-GLUCOSE [id number] 21:32:00 Test Item Value Reference Range Interpretation Comments POC-GLUCOSE METER 275 mg/dL 70-110 H : TESTED A T [facility] 6720 (BEAKER) (test code = [facility], 153) 78516: Stave Hewer/Techni rose ID = [id number] for CR ISWELL, TIA POCT-GLUCOSE [id number] 17:47:00 Test Item Value Reference Range Interpretation Comments POC-GLUCOSE METER 304 mg/dL 70-110 H : TESTED A T [facility] 6720 (BEAKER) (test code = [place], 1538) [address]: Stave Hewer/Techni rose ID = [id number] for ERIN ARIZMENDI URINE [id number] 15:21:00 Test Item Value Reference Range Interpretation [...] Tobramycin (test code R = 25) POCT-GLUCOSE [id number] 12:16:00 Test Item Value Reference Range Interpretation Comments POC-GLUCOSE METER 337 mg/dL 70-110 H : TESTED A T [facility] 6720 (BEAKER) (test code = [place], 1538) [address]: Stave Hewer/Techni rose ID = [id number] for ERIN ARIZMENDI BASIC METABOLIC [id number] 10:39:00 Test Item Value Reference Range Interpretation [...] S NOT APPLICABLE FOR DIALYSIS PATIEN TS. Stave Hewer ID - JANET FPOCT-GLUCOSE [id number] 08:29:00 Test Item Value Reference Range Interpretation Comments POC-GLUCOSE METER 395 mg/dL 70-110 H : TESTED A T [facility] 6720 (BEAKER) (test code = [place], 1538) [address]: Stave Hewer/Techni rose ID = [id number] for ERIN ARIZMENDI CBC W/PLT COUNT & AUTO [id number] 06:40:00 Test Item Value Reference Range Interpretation [...] PERCENT (BEAKER) (test code = 2801) POCT-GLUCOSE [id number] 19:55:00 Test Item Value Reference Range Interpretation Comments POC-GLUCOSE METER 369 mg/dL 70-110 H : TESTED A T [facility] 6720 (BEAKER) (test code = [facility], 153) 34656: Stave Hewer/Techni rose ID = [id number] for CR MG BARTON POCT-GLUCOSE [id number] 16:45:00 Test Item Value Reference Range Interpretation Comments POC-GLUCOSE METER 272 mg/dL 70-110 H : TESTED A T [facility] 6720 (BEAKER) (test code = [facility], 153) 678[address]: Stave Hewer/Techni rose ID = [id number] for TH OMAS, FRIEDA POCT-GLUCOSE [id number] 11:40:00 Test Item Value Reference Range Interpretation Comments POC-GLUCOSE METER 277 mg/dL 70-110 H : TESTED A T [facility] 6720 (BEAKER) (test code = [facility], 153) 88140: Stave Hewer/Techni rose ID = [id number] for TH OMAS, FRIEDA BASIC METABOLIC [id number] 10:22:00 Test Item Value Reference Range Interpretation [...] S NOT APPLICABLE FOR DIALYSIS PATIEN TS. Stave Hewer ID - NTPLIPID [id number] 10:17:00 Test Item Value Reference Range Interpretation [...] Borderline 130-159 High 160-189 Very High >=190 Stave Hewer ID - NTP POCT-GLUCOSE [id number] 08:28:00 Test Item Value Reference Range Interpretation Comments POC-GLUCOSE METER 388 mg/dL 70-110 H : TESTED Sharon Suzanne [facility] 6720 (BEAKER) (test code = [place], 1538) [address]: Stave Hewer/Techni rose ID = [id number] for AARON COTTRELL HEMOGLOBIN [id number] 07:54:00 Test Item Value Reference Range Interpretation Comments HEMOGLOBIN A1C (BEAKER) (test code = 10.4 % 4.3-6.1 H 368) CBC W/PLT COUNT & AUTO [id number] 05:56:00 Test Item Value Reference Range Interpretation [...] (test code = 416) BASOPHILS ABSOLUTE COUNT ([facility]) 0.03 K/ L 0.01-0.08 (test code = 417) IMMATURE GRANULOCYTES-RELATIVE 1 % 0-1 PERCENT ([facility]) (test code = 2801) POCT-GLUCOSE [id number] 23:47:00 Test Item Value Reference Range Interpretation Comments POC-GLUCOSE METER 359 mg/dL 70-110 H : Notified RN/MD: ([facility]) (test code = TESTED AT [place] [address] 153) [facility], [address]: Stave Hewer/Techni rose ID = [id number] for LATHBRIDGE, MICHELINE ICE POCT-GLUCOSE [id number] 21:13:00 Test Item Value Reference Range Interpretation Comments POC-GLUCOSE METER 315 mg/dL 70-110 H : TESTED A T [facility] 6720 ([facility]) (test code = [facility], 153) [address]: Stave Hewer/Techni rose ID = [id number] for Sm ith, Ana POCT-GLUCOSE [id number] 21:13:00 Test Item Value Reference Range Interpretation Comments POC-GLUCOSE METER 331 mg/dL 70-110 H : [facility] ([facility]) (test code = [facility], 153) [address]: Stave Hewer/Techni rose ID = [id number] for RO DGDOMENIC, LINDSAYECA POCT-GLUCOSE [id number] 10:30:00 Test Item Value Reference Range Interpretation Comments POC-GLUCOSE METER 341 mg/dL 70-110 H : TESTED A T [facility] 6720 ([facility]) (test code = [facility], 153) [address]: Stave Hewer/Techni rose ID = [id number] for Sm ith, Ana CBC W/PLT COUNT & AUTO [id number] 08:48:00 Test Item Value Reference Range Interpretation Comments WHITE BLOOD CELL COUNT (AKER) 6.7 K/ L 3.5-10.5 (test code = 775) RED BLOOD CELL COUNT (AKER) 5.28 M/ L 4.63-6.08 (test code = [...] (BEAKER) (test code = Present 1371) HEMOGLOBIN [id number] 06:39:00 Test Item Value Reference Range Interpretation Comments HEMOGLOBIN A1C (BEAKER) (test code = 10.5 % 4.3-6.1 H 368) LIPID [id number] 04:57:00 Test Item Value Reference Range Interpretation [...] Very High >=190 Specimen moderately lipemicBASIC METABOLIC [id number] 04:56:00 Test Item Value Reference Range Interpretation [...] NOT APPLICABLE FOR DIALYSIS PATIEN TS. 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 [...] MDReport Verified Date/Time: 07/22/2019 19:54:10 Reading Location: [address] Consult Reading Room POCT-GLUCOSE [id number] 19:34:00 Test Item Value Reference Range Interpretation Comments POC-GLUCOSE METER 474 mg/dL 70-110 HH : Notified RN/MD: (FELICIANO) (test code = TESTED AT [place] [address]33) [facility], [address]: Stave Hewer/Techni rose ID = [id number] for AK INSONU, MARILYNN URINALYSIS W/ REFLEX URINE [id number] 17:48:00 Test Item Value Reference Range Interpretation [...] = Moderate 517) SOURCE(BEAKER) (test code = 1644) CBC W/PLT COUNT & AUTO [id number] 17:38:00 Test Item Value Reference Range Interpretation [...] 3438) Received comment: User comments: Slide comments:POCT-GLUCOSE [id number] 16:27:00 Test Item Value Reference Range Interpretation Comments POC-GLUCOSE METER 424 mg/dL 70-110 HH : Notified RN/MD: (FELICIANO) (test code = TESTED AT [facility] 5975 7012) [facility], [address]: Stave Hewer/Techni rose ID = [id number] for AK INSONU, MARILYNN CT, BRAIN, WITHOUT [id number] 15:31:00FINAL REPORT CT, BRAIN, WITHOUT CONTRAST CLINICAL [...] MDReport Verified Date/Time: 07/22/2019 15:31:08 Reading Location: [address] Neuro Reading Room RAD, SHUNT [id number] 15:13:00Reason for exam:->concern for VPS malfunction FINAL [...] 07/22/2019 15:13:54 Reading Location: [facility] Radiology Reading Room POCT-GLUCOSE METER 2019-07-22 11:38:00 Test Item Value Reference Range Interpretation Comments POC-GLUCOSE METER 394 mg/dL 70-110 H : TESTED A T [facility] 6720 ([facility]) (test code = [place] [facility], 1538) [address]: Stave Hewer/Techni rose ID = [id number] for MARILYNN MAO HEMOGLOBIN [id number] 09:15:00 Test Item Value Reference Range Interpretation Comments HEMOGLOBIN A1C (BEAKER) (test code = 10.4 % 4.3-6.1 H 368) TSH/FREE T4 IF [id number] 07:54:00 Test Item Value Reference Range Interpretation Comments THYROID STIMULATING HORMONE 1.40 uIU/mL 0.35-4.94 (BEAKER) (test code = 772) POCT-GLUCOSE [id number] 07:48:00 Test Item Value Reference Range Interpretation Comments POC-GLUCOSE METER > mg/dL 70-110 HH : Notified RN/MD: TESTED (BEAKER) (test code = AT [facility] 6720 [facility] 1538) [facility], 770 30: Stave Hewer/Techni rose ID = [id number] for MARILYNN SMITH BASIC METABOLIC [id number] 07:44:00 Test Item Value Reference Range Interpretation [...] NOT APPLICABLE FOR DIALYSIS PATIEN TS. LIPID [id number] 07:34:00 Test Item Value Reference Range Interpretation [...] TESTED A T [facility] 6720 [facility] (test code = [place], 1538) [address]: Stave Hewer/Techni rose ID = [id number] for CHERYLE LINDA RAD, FOOT, 2 VIEWS, [id number] 22:28:00Reason for exam:->osteomyletitis FINAL REPORT TECHNIQUE: Two [...] [place] Verified Date/Time: 07/21/2019 22:28:25 Reading Location: [facility] C013W Consult Reading Room RAD, FOOT, 2 VIEWS, [id number] 22:28:00Reason for exam:->osteomyletitsFINAL REPORT TECHNIQUE: Two views [...] MDReport Verified Date/Time: 07/21/2019 22:28:25 Reading Location: [facility] C013W Consult Reading Room POCT-GLUCOSE METER 2019-07-21 21:04:00 Test Item Value Reference Range Interpretation Comments POC-GLUCOSE METER 430 mg/dL 70-110 HH : Notified RN/MD: (FELICIANO) (test code = TESTED AT [facility] 6720 1538) [facility], [address]: Stave Hewer/Techni rose ID = [id number] for ALBERTO OLIVER ERTAPENEM:SUSC:PT:ISOLATE:ORDQN:[id number] 16:48:00 Test Item Value Reference Range Interpretation Comments Culture: Urine (test >100,000 CFU/mL Proteus code = Culture: mirabilis 10,000 - Urine) 50,000 CFU/mL [facility]USC:PT:ISOLATE:ORDQN:[id number] 16:48:00 Test Item Value Reference Range Interpretation Comments Proteus mirabilis (test Proteus mirabilis code = Proteus mirabilis) [facility] [id number] 16:48:00 Test Item Value Reference Range Interpretation Comments UA Nitrite (test code Negative (05/22/18 10:48 = UA Nitrite) AM) [facility] AND [id number] 16:48:00 Test Item Value Reference Range Interpretation Comments UA Bili (test code = Negative *NA*(05/22/18 UA Bili) 10:48 AM) [facility] AND [id number] 16:48:00 Test Item Value Reference Range Interpretation Comments UA Ketones (test code Negative *NA*(05/22/18 = UA Ketones) 10:48 AM) [facility] AND [id number] 16:48:00 Test Item Value Reference Range Interpretation Comments UA Blood (test code = Trace *ABN*(05/22/18 UA Blood) 10:48 AM) [facility] AND [id number] 16:48:00 Test Item Value Reference Range Interpretation Comments UA Urobilinogen (test code = UA 0.2 0.1-1.0 Urobilinogen) [facility] AND [id number] 16:48:00 Test Item Value Reference Range Interpretation Comments UA Leuk Est (test code Large *ABN*(05/22/18 = UA Leuk Est) 10:48 AM) [facility] AND [id number] 16:48:00 Test Item Value Reference Range Interpretation Comments UA Protein (test code Negative (05/22/18 10:48 = UA Protein) AM) [facility] AND [id number] 16:48:00 Test Item Value Reference Range Interpretation Comments UA Glucose (test code Negative (05/22/18 10:48 = UA Glucose) AM) [facility] AND [id number] 16:48:00 Test Item Value Reference Range Interpretation Comments UA pH (test code = UA pH) 7.0 1 5.0-8.0 [facility] AND [id number] 16:48:00 Test Item Value Reference Range Interpretation Comments UA Spec Grav (test code = UA Spec 1.015 1 Grav) [facility] AND [id number] 16:48:00 Test Item Value Reference Range Interpretation Comments UA Color (test code = Yellow *NA*(05/22/18 UA Color) 10:48 AM) [facility] AND [id number] 16:48:00 Test Item Value Reference Range Interpretation Comments UA Turbidity (test code = Clear (05/22/18 10:48 UA Turbidity) AM) [facility] AND [id number] 16:48:00 Test Item Value Reference Range Interpretation Comments UA Mucus (test code = UA Mucus) Few /LPF [facility] AND [id number] 16:48:00 Test Item Value Reference Range Interpretation Comments UA Bacteria (test code = UA Few /HPF Bacteria) [facility] AND [id number] 16:48:00 Test Item Value Reference Range Interpretation Comments UA RBC (test code = 0-2 /HPF See_Comment [Automa lester message] The UA RBC) system which ge nerated this result tra nsmitted reference range : <=2. The reference range was not used to interpr et this result as dany l/abnormal. [facility] AND [id number] 16:48:00 Test Item Value Reference Range Interpretation Comments UA Sq Epi (test code = None Seen (05/22/18 UA Sq Epi) 10:48 AM) [facility] AND [id number] 16:48:00 Test Item Value Reference Range Interpretation Comments UA WBC (test code = UA WBC) 51-100 /HPF [facility] [id number] 11:57:00 Test Item Value Reference Range Interpretation Comments Antibody Scrn (test Negative (05/22/18 5:57 code = Antibody Scrn) AM) [facility]v [id number] 11:57:00 Test Item Value Reference Range Interpretation Comments ABO/Rh (test code = ABO/Rh) AB POS [id number] 11:57:00 Test Item Value Reference Range Interpretation Comments PTT (test code = PTT) 33.4 s 22.9-35.8 [facility]VymkfzuZVJARSBLAE7837-55-60 11:57:00 Test Item Value Reference Range Interpretation Comments PT (test code = PT) 13.7 s 12.0-14.7 [facility] EqcbfemVIHZXAXJZR9060-13-92 11:57:00 Test Item Value Reference Range Interpretation Comments INR (test code = INR) 1.05 1 0.85-1.17 [facility]ocWRSCMCDNXX4754-89-95 10:50:01 Test Item Value Reference Range Interpretation Comments MCHC (test code = MCHC) 34.0 32.0-36.0 [facility]MlrijdjBKCVEQYFVP4417-81-39 10:50:01 Test Item Value Reference Range Interpretation Comments RDW (test code = RDW) 18.9 11.5-14.5 [facility] CenterLnvdkhuUSSVIMOBDO8111-74-54 10:50:01 Test Item Value Reference Range Interpretation Comments Hct (test code = Hct) 43.3 42.0-54.0 [facility] CenterLusurobNJSDVXXFLD2571-94-82 10:50:01 Test Item Value Reference Range Interpretation Comments WBC (test code = WBC) 9.3 3.7-10.4 [facility] CenterUoxzrpnUWCZVTZUDX2699-53-27 10:50:01 Test Item Value Reference Range Interpretation Comments Hgb (test code = Hgb) 14.7 14.0-18.0 [facility] CenterHchyqtpODYKAHJNJF5039-92-64 10:50:01 Test Item Value Reference Range Interpretation Comments RBC (test code = RBC) 5.36 4.70-6.10 [facility] CenterPjvjuwdPKOYJWFNIB4147-23-78 10:50:01 Test Item Value Reference Range Interpretation Comments Eosinophils # (test code 0.2 See_Comment [A utomated message] The = Eosinophils #) system whic h generated this result tra nsmitted reference range : <=0.5. The reference r boubacar was not used to int erpret this result as normal/abnormal . [facility] CenterDctrxqcSUTSUIMGAN4770-31-08 10:50:01 Test Item Value Reference Range Interpretation Comments Basophils # (test code 0.1 See_Comment [Aut omated message] The = Basophils #) system which generated this result tra nsmitted reference range : <=0.2. The reference r boubacar was not used to int erpret this result as normal/abnormal . [facility] CenterBkfzbdaKMBYZUKXFV9608-09-78 10:50:01 Test Item Value Reference Range Interpretation Comments Lymphocytes # (test code = Lymphocytes 1.8 1.0-5.5 #) [facility] CenterMxxtepgCUQWQSFTEC3589-87-82 10:50:01 Test Item Value Reference Range Interpretation Comments Monocytes # (test code 0.9 See_Comment [Aut omated message] The = Monocytes #) system which generated this result tra nsmitted reference range : <=0.8. The reference r boubacar was not used to int erpret this result as normal/abnormal . [facility] CenterTpssypoFSQZXKTROH3948-94-00 10:50:01 Test Item Value Reference Range Interpretation Comments Neutrophils # (test code = Neutrophils 6.3 1.5-8.1 #) [facility] CenterFgvunbtMQEQWJGEZJ9214-95-29 10:50:01 Test Item Value Reference Range Interpretation Comments Eosinophils (test code = 2.0 See_Comment [A utomated message] The Eosinophils) system which ge nerated this result tra nsmitted reference range : <=4.0. The reference r boubacar was not used to int erpret this result as normal/abnormal . [facility] CenterCyknssaZCOJFWCLGF1738-41-13 10:50:01 Test Item Value Reference Range Interpretation Comments Segs (test code = Segs) 67.4 45.0-75.0 [facility] CenterHdxtsroNKIBCLLSNH5399-67-21 10:50:01 Test Item Value Reference Range Interpretation Comments Lymphocytes (test code = Lymphocytes) 19.9 20.0-40.0 [facility] CenterOwtgariTGMICCDBZK7716-99-20 10:50:01 Test Item Value Reference Range Interpretation Comments Basophils (test code = 1.0 See_Comment [Aut omated message] The Basophils) system which ge nerated this result tra nsmitted reference range : <=1.0. The reference r boubacar was not used to int erpret this result as normal/abnormal . [facility] CenterShnyaywXCMVIAVQRC1009-25-30 10:50:01 Test Item Value Reference Range Interpretation Comments Monocytes (test code = Monocytes) 9.7 2.0-12.0 [facility]2018-11-08 10:50:01 Test Item Value Reference Range Interpretation Comments eGFR (test code = eGFR) 133 [facility]2018-11-08 10:50:01 Test Item Value Reference Range Interpretation Comments Calcium Lvl (test code = Calcium Lvl) 9.4 8.5-10.5 [facility]2018-11-08 10:50:01 Test Item Value Reference Range Interpretation Comments CO2 (test code = CO2) 28 24-32 [facility]2018-11-08 10:50:01 Test Item Value Reference Range Interpretation Comments BUN (test code = BUN) 14 7-22 [facility]2018-11-08 10:50:01 Test Item Value Reference Range Interpretation Comments Glucose Lvl (test code = Glucose Lvl) 89 70-99 [facility]2018-11-08 10:50:01 Test Item Value Reference Range Interpretation Comments Chloride Lvl (test code = Chloride Lvl) 104 95-109 [facility]2018-11-08 10:50:01 Test Item Value Reference Range Interpretation Comments Potassium Lvl (test code = Potassium 4.2 3.5-5.1 Lvl) [facility]2018-11-08 10:50:01 Test Item Value Reference Range Interpretation Comments Sodium Lvl (test code = Sodium Lvl) 137 135-145 [facility]2018-11-08 10:50:01 Test Item Value Reference Range Interpretation Comments Creatinine Lvl (test code = Creatinine 0.85 0.50-1.40 Lvl) [facility]2018-11-08 10:50:01 Test Item Value Reference Range Interpretation Comments AGAP (test code = AGAP) 9.2 10.0-20.0 [place] [id number] 10:50:01 Test Item Value Reference Range Interpretation Comments ACT (TEG) Rapid (test code = ACT (TEG) 136 s 86-118 Rapid) [facility] CenterCkxvqwlIRECBVQOHL6087-06-29 10:50:01 Test Item Value Reference Range Interpretation Comments Split Point Rapid (test code = Split 0.6 min Point Rapid) [facility] CenterTusllhrKVIYAYBFDS6304-61-74 10:50:01 Test Item Value Reference Range Interpretation Comments R-time Rapid (test code = R-time 0.9 min 0.4-0.7 Rapid) [facility] CenterDdjyyqhFIJDKOJIGE1280-62-51 10:50:01 Test Item Value Reference Range Interpretation Comments K-time Rapid (test code = K-time 1.4 min 0.6-2.3 Rapid) [facility] CenterLvzvaikWPEURHNQWG1465-55-70 10:50:01 Test Item Value Reference Range Interpretation Comments Angle Rapid (test code = Angle 71 degrees 64-80 Rapid) [facility] CenterBqhmhtiEJOGNCDZYY8073-98-67 10:50:01 Test Item Value Reference Range Interpretation Comments G-value Rapid (test code = G-value 12.7 5.0-11.6 Rapid) [facility] CenterEvpclheAPTFJWDVBS0968-35-24 10:50:01 Test Item Value Reference Range Interpretation Comments Max Amplitude Rapid (test code = Max 72 mm 52-71 Amplitude Rapid) [facility] CenterRdlozwyGVFQNNNAOZ1007-64-92 10:50:01 Test Item Value Reference Range Interpretation Comments Estimated % Lysis Rapid 0.1 See_Comment [Au tomated message] The (test code = Estimated syste m which generated % Lysis Rapid) this result t ransmitted reference range : <=7.5. The reference r boubacar was not used to int erpret this result as normal/abnormal . [facility] CenterLpiidqgFUVAFYOYCE0976-38-27 10:50:01 Test Item Value Reference Range Interpretation Comments Platelet (test code = Platelet) 367 133-450 [facility] CenterVdiwotiNQYLONINCD5379-37-68 10:50:01 Test Item Value Reference Range Interpretation Comments MPV (test code = MPV) 7.8 7.4-10.4 [facility] CenterDprdadcBKINPNUNZH5657-74-70 10:50:01 Test Item Value Reference Range Interpretation Comments MCH (test code = MCH) 27.4 pg 27.0-31.0 [facility] CenterPewpjviRFCACPOPLV0562-71-20 10:50:01 Test Item Value Reference Range Interpretation Comments MCV (test code = MCV) 80.7 80.0-94.0 [facility]2018-05-08 05:42:00 Test Item Value Reference Range Interpretation Comments B/C Ratio (test code = B/C Ratio) 17 1 6-25 [facility]2018-05-08 05:42:00 Test Item Value Reference Range Interpretation Comments Globulin (test code = Globulin) 4.3 2.7-4.2 [facility]2018-05-08 05:42:00 Test Item Value Reference Range Interpretation Comments A/G Ratio (test code = A/G Ratio) 0.7 1 0.7-1.6 [facility]2018-05-08 05:42:00 Test Item Value Reference Range Interpretation Comments AGAP (test code = AGAP) 14.4 10.0-20.0 [facility]2018-05-08 05:42:00 Test Item Value Reference Range Interpretation Comments eGFR (test code = eGFR) 113 [facility]2018-05-08 05:42:00 Test Item Value Reference Range Interpretation Comments Alk Phos (test code = Alk Phos) 76 39-136 [facility]2018-05-08 05:42:00 Test Item Value Reference Range Interpretation Comments ALT (test code = ALT) 35 See_Comment [Auto mated message] The system which ge nerated this result transmit lester reference range : <=65. The reference range was not used to interpr et this result as dany l/abnormal. [facility]2018-05-08 05:42:00 Test Item Value Reference Range Interpretation Comments Albumin Lvl (test code = Albumin Lvl) 2.8 3.5-5.0 [facility]2018-05-08 05:42:00 Test Item Value Reference Range Interpretation Comments Total Protein (test code = Total 7.1 6.4-8.4 Protein) [facility]2018-05-08 05:42:00 Test Item Value Reference Range Interpretation Comments Calcium Lvl (test code = Calcium Lvl) 8.7 8.5-10.5 [facility]2018-05-08 05:42:00 Test Item Value Reference Range Interpretation Comments AST (test code = AST) 18 See_Comment [Auto mated message] The system which ge nerated this result transmit lester reference range : <=37. The reference range was not used to interpr et this result as dany l/abnormal. [facility]2018-05-08 05:42:00 Test Item Value Reference Range Interpretation Comments Bili Total (test code = Bili Total) 0.3 0.2-1.3 [facility]2018-05-08 05:42:00 Test Item Value Reference Range Interpretation Comments Potassium Lvl (test code = Potassium 4.4 3.5-5.1 Lvl) [facility]2018-05-08 05:42:00 Test Item Value Reference Range Interpretation Comments Chloride Lvl (test code = Chloride Lvl) 109 95-109 [facility]2018-05-08 05:42:00 Test Item Value Reference Range Interpretation Comments CO2 (test code = CO2) 23 24-32 [facility]2018-05-08 05:42:00 Test Item Value Reference Range Interpretation Comments Glucose Lvl (test code = Glucose Lvl) 114 70-99 [facility]2018-05-08 05:42:00 Test Item Value Reference Range Interpretation Comments Creatinine Lvl (test code = Creatinine 1.01 0.50-1.40 Lvl) [facility]2018-05-08 05:42:00 Test Item Value Reference Range Interpretation Comments BUN (test code = BUN) 17 7-22 [facility]2018-05-08 05:42:00 Test Item Value Reference Range Interpretation Comments Sodium Lvl (test code = Sodium Lvl) 142 135-145 [facility] CenterIpbxcmwATUYJYNWPI1314-43-59 05:42:00 Test Item Value Reference Range Interpretation Comments Basophils (test code = 0.6 See_Comment [Aut omated message] The Basophils) system which ge nerated this result tra nsmitted reference range : <=1.0. The reference r boubacar was not used to int erpret this result as normal/abnormal . [facility] CenterSdtmyjsSDGDBPOKAR5999-10-77 05:42:00 Test Item Value Reference Range Interpretation Comments Segs-Bands # (test code = Segs-Bands #) 4.8 1.5-8.1 [facility] CenterUkvneohBOCSGSORDL9984-60-95 05:42:00 Test Item Value Reference Range Interpretation Comments Monocytes # (test code 0.7 See_Comment [Aut omated message] The = Monocytes #) system which generated this result tra nsmitted reference range : <=0.8. The reference r boubacar was not used to int erpret this result as normal/abnormal . [facility] CenterUhsnenzYRZJZXVDBA7230-13-77 05:42:00 Test Item Value Reference Range Interpretation Comments Lymphocytes # (test code = Lymphocytes 1.9 1.0-5.5 #) [facility] CenterLfmsazgOUNZEHIEYQ5782-68-60 05:42:00 Test Item Value Reference Range Interpretation Comments Monocytes (test code = Monocytes) 9.4 2.0-12.0 [facility] CenterHlewqatMIFQWOAJVN6881-03-74 05:42:00 Test Item Value Reference Range Interpretation Comments Eosinophils # (test code 0.2 See_Comment [A utomated message] The = Eosinophils #) system whic h generated this result tra nsmitted reference range : <=0.5. The reference r boubacar was not used to int erpret this result as normal/abnormal . [facility] CenterQpphqimGVYQHSCJIS2061-88-69 05:42:00 Test Item Value Reference Range Interpretation Comments Eosinophils (test code = 2.9 See_Comment [A utomated message] The Eosinophils) system which ge nerated this result tra nsmitted reference range : <=4.0. The reference r boubacar was not used to int erpret this result as normal/abnormal . [facility] CenterUhkjtheQJHCNNQOQT2922-89-71 05:42:00 Test Item Value Reference Range Interpretation Comments Segs (test code = Segs) 62.2 45.0-75.0 [facility] CenterVxnylrlKSSJNLMMXI0896-49-25 05:42:00 Test Item Value Reference Range Interpretation Comments Lymphocytes (test code = Lymphocytes) 24.9 20.0-40.0 [facility] CenterGbfzpfsMCYJUERTPK6088-82-09 05:42:00 Test Item Value Reference Range Interpretation Comments MCH (test code = MCH) 27.5 pg 27.0-31.0 [facility] CenterWfugipzLJFRCLRRDS0440-58-26 05:42:00 Test Item Value Reference Range Interpretation Comments MCV (test code = MCV) 85.3 80.0-94.0 [facility] CenterQyreswdFDDCFUZSLO9240-50-58 05:42:00 Test Item Value Reference Range Interpretation Comments Hct (test code = Hct) 43.9 42.0-54.0 [facility] CenterYqelheiOWDPWPQYNO8005-44-97 05:42:00 Test Item Value Reference Range Interpretation Comments Hgb (test code = Hgb) 14.2 14.0-18.0 [facility] CenterDawudzdRHZHLXSSDB5262-81-04 05:42:00 Test Item Value Reference Range Interpretation Comments WBC (test code = WBC) 7.7 3.7-10.4 [facility] CenterWagjzobPMURMGJKQM2701-43-23 05:42:00 Test Item Value Reference Range Interpretation Comments RBC (test code = RBC) 5.15 4.70-6.10 [facility] CenterXdzfgjfLZQQPCYSYU6651-65-51 05:42:00 Test Item Value Reference Range Interpretation Comments MPV (test code = MPV) 8.4 7.4-10.4 [facility] CenterIxgyidgTFNPBRTOPO7644-82-88 05:42:00 Test Item Value Reference Range Interpretation Comments MCHC (test code = MCHC) 32.3 32.0-36.0 [facility] CenterYwdnivgCXSEWPUCCC8277-31-19 05:42:00 Test Item Value Reference Range Interpretation Comments RDW (test code = RDW) 17.3 11.5-14.5 [facility]KxhtbfbYBSSXQYKMH8081-32-72 05:42:00 Test Item Value Reference Range Interpretation Comments Platelet (test code = Platelet) 317 133-450 [facility]2018-05-07 09:36:00 Test Item Value Reference Range Interpretation Comments Globulin (test code = Globulin) 4.4 2.7-4.2 [facility]2018-05-07 09:36:00 Test Item Value Reference Range Interpretation Comments A/G Ratio (test code = A/G Ratio) 0.6 1 0.7-1.6 [place] 918158-05-07 09:36:00 Test Item Value Reference Range Interpretation Comments B/C Ratio (test code = B/C Ratio) 17 1 6-25 [facility]2018-05-07 09:36:00 Test Item Value Reference Range Interpretation Comments AGAP (test code = AGAP) 11.3 10.0-20.0 [facility]2018-05-07 09:36:00 Test Item Value Reference Range Interpretation Comments eGFR (test code = eGFR) 134 [facility]2018-05-07 09:36:00 Test Item Value Reference Range Interpretation Comments Creatinine Lvl (test code = Creatinine 0.84 0.50-1.40 Lvl) [facility]2018-05-07 09:36:00 Test Item Value Reference Range Interpretation Comments Sodium Lvl (test code = Sodium Lvl) 142 135-145 [facility]2018-05-07 09:36:00 Test Item Value Reference Range Interpretation Comments Glucose Lvl (test code = Glucose Lvl) 99 70-99 [facility]2018-05-07 09:36:00 Test Item Value Reference Range Interpretation Comments BUN (test code = BUN) 14 7-22 [facility]2018-05-07 09:36:00 Test Item Value Reference Range Interpretation Comments Alk Phos (test code = Alk Phos) 79 39-136 [facility]2018-05-07 09:36:00 Test Item Value Reference Range Interpretation Comments Bili Total (test code = Bili Total) 0.3 0.2-1.3 [facility]2018-05-07 09:36:00 Test Item Value Reference Range Interpretation Comments AST (test code = AST) 14 See_Comment [Auto mated message] The system which ge nerated this result transmit lester reference range : <=37. The reference range was not used to interpr et this result as dany l/abnormal. [facility]2018-05-07 09:36:00 Test Item Value Reference Range Interpretation Comments ALT (test code = ALT) 43 See_Comment [Auto mated message] The system which ge nerated this result transmit lester reference range : <=65. The reference range was not used to interpr et this result as dany l/abnormal. [facility]2018-05-07 09:36:00 Test Item Value Reference Range Interpretation Comments Total Protein (test code = Total 7.1 6.4-8.4 Protein) [place] [id number] 09:36:00 Test Item Value Reference Range Interpretation Comments Albumin Lvl (test code = Albumin Lvl) 2.7 3.5-5.0 [facility]2018-05-07 09:36:00 Test Item Value Reference Range Interpretation Comments Calcium Lvl (test code = Calcium Lvl) 9.2 8.5-10.5 [facility]2018-05-07 09:36:00 Test Item Value Reference Range Interpretation Comments CO2 (test code = CO2) 21 24-32 [facility]2018-05-07 09:36:00 Test Item Value Reference Range Interpretation Comments Potassium Lvl (test code = Potassium 4.3 3.5-5.1 Lvl) [facility]2018-05-07 09:36:00 Test Item Value Reference Range Interpretation Comments Chloride Lvl (test code = Chloride Lvl) 114 95-109 [facility] CenterOfkhdauVSDUXMXGNK9325-96-63 09:36:00 Test Item Value Reference Range Interpretation Comments MCHC (test code = MCHC) 32.5 32.0-36.0 [facility] CenterDylqphmAKDGSHREAF2136-93-23 09:36:00 Test Item Value Reference Range Interpretation Comments RDW (test code = RDW) 17.5 11.5-14.5 [facility] CenterKfryzmyWMYBYIMYWL5899-85-89 09:36:00 Test Item Value Reference Range Interpretation Comments Platelet (test code = Platelet) 400 133-450 [facility] CenterEqrshocHIQQEIVFHL5538-03-21 09:36:00 Test Item Value Reference Range Interpretation Comments MPV (test code = MPV) 8.5 7.4-10.4 [facility] CenterIegwxpbPSPTUWITEO2370-66-14 09:36:00 Test Item Value Reference Range Interpretation Comments WBC (test code = WBC) 6.6 3.7-10.4 [facility] CenterBmvdtofEHHUDQPWPB9630-55-73 09:36:00 Test Item Value Reference Range Interpretation Comments RBC (test code = RBC) 5.17 4.70-6.10 [facility] CenterTtrycarUGZIAVHOKS9806-81-07 09:36:00 Test Item Value Reference Range Interpretation Comments MCV (test code = MCV) 86.1 80.0-94.0 [facility] CenterNdtrsjlDXFZUNHUNE3838-46-12 09:36:00 Test Item Value Reference Range Interpretation Comments Hct (test code = Hct) 44.5 42.0-54.0 [facility] CenterKyzviolDAOZHZLWBE7850-97-40 09:36:00 Test Item Value Reference Range Interpretation Comments MCH (test code = MCH) 28.0 pg 27.0-31.0 [facility] CenterYsmesqoNMPBYSRCOW0178-82-05 09:36:00 Test Item Value Reference Range Interpretation Comments Hgb (test code = Hgb) 14.5 14.0-18.0 [facility] CenterPhniscuZYZIQCFVRT5722-95-84 09:36:00 Test Item Value Reference Range Interpretation Comments Lymphocytes # (test code = Lymphocytes 1.7 1.0-5.5 #) [facility] CenterHlatgsvDPRTWGURCV9156-86-88 09:36:00 Test Item Value Reference Range Interpretation Comments Monocytes # (test code 0.7 See_Comment [Aut omated message] The = Monocytes #) system which generated this result tra nsmitted reference range : <=0.8. The reference r boubacar was not used to int erpret this result as normal/abnormal . [facility] CenterCpchdsmQNBBDAKROJ8190-61-70 09:36:00 Test Item Value Reference Range Interpretation Comments Eosinophils # (test code 0.2 See_Comment [A utomated message] The = Eosinophils #) system whic h generated this result tra nsmitted reference range : <=0.5. The reference r boubacar was not used to int erpret this result as normal/abnormal . [facility] CenterNdaamxiIZJYHPLUTZ9926-01-98 09:36:00 Test Item Value Reference Range Interpretation Comments Lymphocytes (test code = Lymphocytes) 26.1 20.0-40.0 [facility] CenterHsufcxrSNVCDNDOEC7740-84-69 09:36:00 Test Item Value Reference Range Interpretation Comments Segs (test code = Segs) 59.3 45.0-75.0 [facility] CenterSywkfqwYQFRSCMFGY4433-15-61 09:36:00 Test Item Value Reference Range Interpretation Comments Basophils (test code = 0.8 See_Comment [Aut omated message] The Basophils) system which ge nerated this result tra nsmitted reference range : <=1.0. The reference r boubacar was not used to int erpret this result as normal/abnormal . [facility] CenterImmwrjyLZQLZUMJCV2487-79-94 09:36:00 Test Item Value Reference Range Interpretation Comments Monocytes (test code = Monocytes) 10.5 2.0-12.0 [facility] CenterTpvfgjxKFYQTRXTEA0534-77-00 09:36:00 Test Item Value Reference Range Interpretation Comments Eosinophils (test code = 3.3 See_Comment [A utomated message] The Eosinophils) system which ge nerated this result tra nsmitted reference range : <=4.0. The reference r boubacar was not used to int erpret this result as normal/abnormal . [id number] 09:36:00 Test Item Value Reference Range Interpretation Comments Segs-Bands # (test code = Segs-Bands #) 3.9 1.5-8.1 [place] [id number] 21:02:00 Test Item Value Reference Range Interpretation Comments Vanco Tr TND (test code = Vanco Tr 15:30pm TND) [place] [id number] 21:02:00 Test Item Value Reference Range Interpretation Comments Vanco Tr (test code = Vanco Tr) 9.1 [facility]2018-05-06 07:07:00 Test Item Value Reference Range Interpretation Comments Glucose Lvl (test code = Glucose Lvl) 74 70-99 [facility]2018-05-06 07:07:00 Test Item Value Reference Range Interpretation Comments BUN (test code = BUN) 12 7-22 [facility]2018-05-06 07:07:00 Test Item Value Reference Range Interpretation Comments Creatinine Lvl (test code = Creatinine 0.75 0.50-1.40 Lvl) [place] [id number] 07:07:00 Test Item Value Reference Range Interpretation Comments eGFR (test code = eGFR) 140 [facility]2018-05-06 07:07:00 Test Item Value Reference Range Interpretation Comments Albumin Lvl (test code = Albumin Lvl) 2.9 3.5-5.0 [place] [id number] 07:07:00 Test Item Value Reference Range Interpretation Comments Globulin (test code = Globulin) 4.4 2.7-4.2 [place] [id number] 07:07:00 Test Item Value Reference Range Interpretation Comments A/G Ratio (test code = A/G Ratio) 0.7 1 0.7-1.6 [place] [id number] 07:07:00 Test Item Value Reference Range Interpretation Comments Bili Total (test code = Bili Total) 0.4 0.2-1.3 [place] [id number] 07:07:00 Test Item Value Reference Range Interpretation Comments Alk Phos (test code = Alk Phos) 71 39-136 [place] [id number] 07:07:00 Test Item Value Reference Range Interpretation Comments AST (test code = AST) 15 See_Comment [Auto mated message] The system which ge nerated this result transmit lester reference range : <=37. The reference range was not used to interpr et this result as dany l/abnormal. [place] [id number] 07:07:00 Test Item Value Reference Range Interpretation Comments ALT (test code = ALT) 28 See_Comment [Auto mated message] The system which ge nerated this result transmit lester reference range : <=65. The reference range was not used to interpr et this result as dany l/abnormal. [place] 918158-05-06 07:07:00 Test Item Value Reference Range Interpretation Comments Potassium Lvl (test code = Potassium 4.4 3.5-5.1 Lvl) [place] [id number] 07:07:00 Test Item Value Reference Range Interpretation Comments Sodium Lvl (test code = Sodium Lvl) 147 135-145 [place] [id number] 07:07:00 Test Item Value Reference Range Interpretation Comments CO2 (test code = CO2) 25 24-32 [facility]2018-05-06 07:07:00 Test Item Value Reference Range Interpretation Comments Chloride Lvl (test code = Chloride Lvl) 114 95-109 [facility]2018-05-06 07:07:00 Test Item Value Reference Range Interpretation Comments B/C Ratio (test code = B/C Ratio) 16 1 6-25 [place] [id number] 07:07:00 Test Item Value Reference Range Interpretation Comments Calcium Lvl (test code = Calcium Lvl) 8.7 8.5-10.5 [facility]2018-05-06 07:07:00 Test Item Value Reference Range Interpretation Comments AGAP (test code = AGAP) 12.4 10.0-20.0 [facility]2018-05-06 07:07:00 Test Item Value Reference Range Interpretation Comments Total Protein (test code = Total 7.3 6.4-8.4 Protein) [facility] CenterFqbbskjMFJDCMIMFF4130-83-42 07:07:00 Test Item Value Reference Range Interpretation Comments Platelet (test code = Platelet) 345 133-450 [facility] CenterQcpjgttUEVSDOAJYN7845-43-95 07:07:00 Test Item Value Reference Range Interpretation Comments MPV (test code = MPV) 8.7 7.4-10.4 [facility] CenterUulunbkXJMUTLEPAZ0228-95-80 07:07:00 Test Item Value Reference Range Interpretation Comments WBC (test code = WBC) 6.9 3.7-10.4 [facility] CenterTgwpizhDVQWGZZSSB8384-81-79 07:07:00 Test Item Value Reference Range Interpretation Comments RBC (test code = RBC) 5.30 4.70-6.10 [facility] CenterJftbtrdPXCWUXLPLV1044-65-85 07:07:00 Test Item Value Reference Range Interpretation Comments MCHC (test code = MCHC) 32.8 32.0-36.0 [facility] CenterGhovrowTOGKBCSAYC9822-92-23 07:07:00 Test Item Value Reference Range Interpretation Comments MCH (test code = MCH) 27.9 pg 27.0-31.0 [facility] CenterBpsqwbaYVNQKOJJVD8130-33-48 07:07:00 Test Item Value Reference Range Interpretation Comments Hgb (test code = Hgb) 14.8 14.0-18.0 [facility] CenterHoicvbaHMBKQIPQZY2407-99-47 07:07:00 Test Item Value Reference Range Interpretation Comments MCV (test code = MCV) 85.0 80.0-94.0 [facility] CenterKbzjkuwBEZQPCRXQG5136-20-59 07:07:00 Test Item Value Reference Range Interpretation Comments Hct (test code = Hct) 45.1 42.0-54.0 [facility] CenterJqppoahDZOPHQTEVT1735-87-78 07:07:00 Test Item Value Reference Range Interpretation Comments RDW (test code = RDW) 17.5 11.5-14.5 [facility] CenterEratcisDWPRNMFOXL0135-76-14 07:07:00 Test Item Value Reference Range Interpretation Comments Eosinophils # (test code 0.2 See_Comment [A utomated message] The = Eosinophils #) system whic h generated this result tra nsmitted reference range : <=0.5. The reference r boubacar was not used to int erpret this result as normal/abnormal . [facility] CenterRcinbemUOPSKVBEHK4189-64-14 07:07:00 Test Item Value Reference Range Interpretation Comments Lymphocytes # (test code = Lymphocytes 2.0 1.0-5.5 #) [facility] CenterSvgcnmfNWTXKHKTFO7019-79-35 07:07:00 Test Item Value Reference Range Interpretation Comments Monocytes # (test code 0.7 See_Comment [Aut omated message] The = Monocytes #) system which generated this result tra nsmitted reference range : <=0.8. The reference r boubacar was not used to int erpret this result as normal/abnormal . [facility] CenterOfkqamvTFZTMGSQBD0476-69-95 07:07:00 Test Item Value Reference Range Interpretation Comments Eosinophils (test code = 2.4 See_Comment [A utomated message] The Eosinophils) system which ge nerated this result tra nsmitted reference range : <=4.0. The reference r boubacar was not used to int erpret this result as normal/abnormal . [facility] CenterOnllxnjNKUMIXAJJS9117-61-49 07:07:00 Test Item Value Reference Range Interpretation Comments Basophils (test code = 0.6 See_Comment [Aut omated message] The Basophils) system which ge nerated this result tra nsmitted reference range : <=1.0. The reference r boubacar was not used to int erpret this result as normal/abnormal . [facility] CenterSzrjecjONZXHTODBU7989-45-41 07:07:00 Test Item Value Reference Range Interpretation Comments Segs-Bands # (test code = Segs-Bands #) 4.0 1.5-8.1 [facility] CenterYoryyjvADKBHKIAWN8182-77-22 07:07:00 Test Item Value Reference Range Interpretation Comments Monocytes (test code = Monocytes) 10.4 2.0-12.0 [facility] CenterSuebplaABNLKOXVOA9729-92-36 07:07:00 Test Item Value Reference Range Interpretation Comments RBC Morph (test code = Normal (11/17/17 2:07 AM) RBC Morph) [facility] CenterRybgvjeYHDTEHIFEO9760-89-28 07:07:00 Test Item Value Reference Range Interpretation Comments Segs (test code = Segs) 58.1 45.0-75.0 [facility] CenterJgdvyijRXMERRKTVB3978-49-85 07:07:00 Test Item Value Reference Range Interpretation Comments Plt Morph (test code = Normal (11/17/17 2:07 AM) Plt Morph) [facility] CenterCimsatnRPXQUQTBWA1366-26-21 07:07:00 Test Item Value Reference Range Interpretation Comments Lymphocytes (test code = Lymphocytes) 28.5 20.0-40.0 [facility]ujvdeGKGJFRVQXQ5603-60-39 16:07:00 Test Item Value Reference Range Interpretation Comments Basophils # (test code 0.1 See_Comment [Aut omated message] The = Basophils #) system which generated this result tra nsmitted reference range : <=0.2. The reference r boubacar was not used to int erpret this result as normal/abnormal . [facility]oHcsltggGWLADEAYDF9327-06-16 16:07:00 Test Item Value Reference Range Interpretation Comments Polychrom (test code = Moderate *ABN*(11/16/17 Polychrom) 11:07 AM) [facility] CenterVggqvzfGHRCTZKGSZ4786-17-57 06:43:00 Test Item Value Reference Range Interpretation Comments Vanco Tr TND (test code = Vanco Tr TND) * [facility] CenterGkebhsxKQTTGKVCRL1000-26-86 06:43:00 Test Item Value Reference Range Interpretation Comments Vanco Tr (test code = Vanco Tr) 22.3 [facility]2018-05-04 11:45:00 Test Item Value Reference Range Interpretation Comments Magnesium Lvl (test code = Magnesium 2.3 1.8-2.4 Lvl) [facility]2018-05-04 11:45:00 Test Item Value Reference Range Interpretation Comments Phosphorus (test code = Phosphorus) 3.5 2.5-4.5 [facility] CenterZjtagsbAAASTQNZAB3982-20-35 11:45:00 Test Item Value Reference Range Interpretation Comments PT (test code = PT) 14.0 s 12.0-14.7 [facility] CenterJgklaisYCWPPYICDR2742-16-13 11:45:00 Test Item Value Reference Range Interpretation Comments PTT (test code = PTT) 37.6 s 22.9-35.8 [facility] CenterPlhrrygXRJVIDULOO9302-83-58 11:45:00 Test Item Value Reference Range Interpretation Comments INR (test code = INR) 1.08 1 0.85-1.17 [facility]VswpmkoCONQSOCFOA4357-89-75 11:45:00 Test Item Value Reference Range Interpretation Comments C-REACTIVE PROTEIN (test code = 13.1 C-REACTIVE PROTEIN) [facility] HospitalDjwibbwMJZVKMACYE4794-38-30 11:45:00 Test Item Value Reference Range Interpretation Comments Prealbumin (test code = Prealbumin) 25.2 18.0-45.0 [facility]2018-05-04 03:06:00 Test Item Value Reference Range Interpretation Comments Lactic Acid Lvl (test code = Lactic 0.9 0.5-2.2 Acid Lvl) [facility] CenterUsctvtgJOGBRONLTO9134-21-28 03:06:00 Test Item Value Reference Range Interpretation Comments Sed Rate (test code = 5 See_Comment [Auto mated message] The Sed Rate) system which ge nerated this result transmit lester reference range : <=15. The reference range was not used to interpr et this result as dany l/abnormal. [facility] HospitalTfsmxemJBRENLHYAO9392-65-08 03:06:00 Test Item Value Reference Range Interpretation Comments C-REACTIVE PROTEIN (test code = 15.8 C-REACTIVE PROTEIN) [facility] CenterKdpfuzfZZLHWAOCQN6730-28-54 00:44:00 Test Item Value Reference Range Interpretation Comments PT (test code = PT) 13.0 s 12.0-14.7 [facility] CenterYwwasdxNUUVNBBBWC7631-67-96 00:44:00 Test Item Value Reference Range Interpretation Comments INR (test code = INR) 0.98 1 0.85-1.17 [facility]oBwfsltkANNNKPAIXX4875-30-22 00:44:00 Test Item Value Reference Range Interpretation Comments PTT (test code = PTT) 33.2 s 22.9-35.8 [facility] [id number] 23:51:00 Test Item Value Reference Range Interpretation Comments Antibody Scrn (test Negative (11/14/17 6:51 code = Antibody Scrn) PM) [facility] [id number] 23:51:00 Test Item Value Reference Range Interpretation Comments ABO/Rh (test code = ABO/Rh) AB POS [facility] AND [id number] 23:35:00 Test Item Value Reference Range Interpretation Comments UA Urobilinogen (test code = UA 0.2 0.1-1.0 Urobilinogen) [facility] AND [id number] 23:35:00 Test Item Value Reference Range Interpretation Comments UA Nitrite (test code Negative (11/14/17 6:35 = UA Nitrite) PM) [facility] AND [id number] 23:35:00 Test Item Value Reference Range Interpretation Comments UA Glucose (test code Negative (11/14/17 6:35 = UA Glucose) PM) [facility] AND [id number] 23:35:00 Test Item Value Reference Range Interpretation Comments UA Ketones (test code Negative *NA*(11/14/17 = UA Ketones) 6:35 PM) [facility] AND [id number] 23:35:00 Test Item Value Reference Range Interpretation Comments UA Bili (test code = Negative *NA*(11/14/17 UA Bili) 6:35 PM) [facility] AND [id number] 23:35:00 Test Item Value Reference Range Interpretation Comments UA Blood (test code = Trace *ABN*(11/14/17 UA Blood) 6:35 PM) [facility] AND [id number] 23:35:00 Test Item Value Reference Range Interpretation Comments UA Leuk Est (test code Small *ABN*(11/14/17 6:35 = UA Leuk Est) PM) [facility] AND [id number] 23:35:00 Test Item Value Reference Range Interpretation Comments UA Spec Grav (test code = UA Spec 1.020 1 Grav) [facility] AND [id number] 23:35:00 Test Item Value Reference Range Interpretation Comments UA pH (test code = UA pH) 6.0 1 5.0-8.0 [facility] AND [id number] 23:35:00 Test Item Value Reference Range Interpretation Comments UA Color (test code = Yellow *NA*(11/14/17 6:35 UA Color) PM) [facility] AND [id number] 23:35:00 Test Item Value Reference Range Interpretation Comments UA Protein (test code = Trace *ABN*(11/14/17 UA Protein) 6:35 PM) [facility] AND [id number] 23:35:00 Test Item Value Reference Range Interpretation Comments UA Turbidity (test code Slight Cloudy (11/14/17 = UA Turbidity) 6:35 PM) [facility] AND [id number] 23:35:00 Test Item Value Reference Range Interpretation Comments UA Hyal Cast 0-2 (11/14/17 6:35 See_Comment [Automated message] (test code = UA PM) The system w [facility] Hyal Cast) generated this result transmitted ref erence range: <=2. The reference range was not used to int erpret this result as normal/abnormal . [facility] AND [id number] 23:35:00 Test Item Value Reference Range Interpretation Comments UA Bacteria (test code = UA Occasional /HPF Bacteria) [facility] AND [id number] 23:35:00 Test Item Value Reference Range Interpretation Comments UA RBC (test code 11-20 /HPF See_Comment [Automate d message] The = UA RBC) system which ge nerated this result tra nsmitted reference range : <=2. The reference range was not used to interpr et this result as normal/abnormal . [facility] AND [id number] 23:35:00 Test Item Value Reference Range Interpretation Comments UA Sq Epi (test code = UA Sq Occasional /LPF Epi) [facility] AND [id number] 23:35:00 Test Item Value Reference Range Interpretation Comments UA WBC (test code = UA WBC) 51-100 /HPF [facility]oYxcuzwvUCYAEVYMPL4554-18-26 23:20:00 Test Item Value Reference Range Interpretation Comments Basophils # (test code 0.1 See_Comment [Aut omated message] The = Basophils #) system which generated this result tra nsmitted reference range : <=0.2. The reference r boubacar was not used to int erpret this result as normal/abnormal . [facility] CenterEkuymirLJTTBEKZOC2586-14-82 23:20:00 Test Item Value Reference Range Interpretation Comments Polychrom (test code = Polychrom) Slight [facility] CenterZlmadisXMSIGKNDVZ4937-43-94 23:20:00 Test Item Value Reference Range Interpretation Comments Plt Morph (test code = Normal (11/14/17 6:20 PM) Plt Morph) [facility] [id number] 16:22:00 Test Item Value Reference Range Interpretation Comments CULTURE (BEAKER) (test No growth in 5 days code = 1095) BLOOD [id number] 16:22:00 Test Item Value Reference Range Interpretation [...] Normal 762) CBC W/PLT COUNT & AUTO [id number] 22:28:00 Test Item Value Reference Range Interpretation [...] K/ L 0.00-0.20 (test code = 417) 0[facility]000.[facility] [id number] 11:11:00 Test Item Value Reference Range Interpretation [...] NOT APPLICABLE FOR DIALYSIS PATIEN TS. URINE [id number] 09:56:00 Test Item Value Reference Range Interpretation Comments CULTURE (BEAKER) (test <10,000 col/mL skin code = 1095) marilee COMPREHENSIVE METABOLIC [id number] 08:49:00 Test Item Value Reference Range Interpretation [...] PATIEN TS. CBC W/PLT COUNT & AUTO [id number] 08:46:00 Test Item Value Reference Range Interpretation [...] 0.00-0.20 (test code = 417) 0.00URINALYSIS W/ [id number] 20:36:00 Test Item Value Reference Range Interpretation [...] SOURCE(BEAKER) (test code = 2795) BASIC METABOLIC [id number] 17:00:00 Test Item Value Reference Range Interpretation [...] Specimen slightly ictericCBC W/PLT COUNT & AUTO [id number] 12:18:00 Test Item Value Reference Range Interpretation [...]
[2021-10-20] MEDS ORDERED: NA CHLORIDE 0.9% 1,000 ML ONE (14:09)
[2021-10-20] MEDS ORDERED: PROMETHAZINE INJ 25 MG/ML AMP ONE ×2 (14:28→17:10)
[2021-10-20] MEDS ORDERED: HYDROMORPHONE HCL 1 MG/ML INJ ONE (14:28)
--- NOTE | 2021-10-20 14:44 | ER ---
Nurse's Notes [facility] Name: Roland Feldman Jr Age: 36 yrs Sex: Male : 1985 Arrival Date: 10/20/2021 Time: 13:06 Bed 18 Private MD: Diagnosis: Headache-FOOT GATHERER malfunction Presentation: 10/20 13:25 Chief complaint: EMS states: Home health nurse called EMS d/t pt's BP being elevated at home, 200/110s, pt c/o headache x approx 3 months, N/V, believes that FOOT GATHERER shunt is malfunctioning, VSS for EMS w/ systolic BP 130s. Coronavirus screen: Vaccine status: Patient reports receiving the 1st dose of the Covid vaccine. Ebola Screen: No symptoms or risks identified at this time. Initial Sepsis Screen: Does the patient meet any 2 criteria? No. Patient's initial sepsis screen is negative. Does the patient have a suspected source of infection? No. Patient's initial sepsis screen is negative. Risk Assessment: Do you want to hurt yourself or someone else? Patient reports no desire to harm self or others. Onset of symptoms was October 20, 2021. 13:25 Method Of Arrival: EMS: [facility] 13:25 Acuity: YUKI 3 ph Triage Assessment: 13:29 General: Appears in no apparent distress. Behavior is calm, cooperative, appropriate ph for age, Denies fever. Pain: Complains of pain in right [employer]. Neuro: Level of Consciousness is awake, alert, obeys commands, Oriented to person, place, time, situation, Reports blurred vision dizziness, headache in right frontal area. Cardiovascular: Capillary refill < 3 seconds in bilateral fingers Patient's skin is warm and dry. Respiratory: Airway is compromised Respiratory effort is even, unlabored, Respiratory pattern is regular, symmetrical. GI: Reports diarrhea, nausea, vomiting. : [place] in place to gravity drainage. Derm: Skin is intact, Skin is pink, warm \T\ dry. Musculoskeletal: Amputation of bilateral BKA. Historical: - Allergies: 13:28 Amoxicillin; ph 13:28 Bactrim; ph 13:28 Ciprofloxacin; ph 13:28 CLAVULANIC ACID; ph 13:28 Demerol; ph 13:28 Doxycycline; ph 13:28 Levofloxacin; ph 13:28 Morphine; ph 13:28 PENICILLINS; ph 13:28 Toradol; ph 13:28 TRIMETHOPRIM; ph 13:28 Vancomycin; ph 13:28 Zofran; ph - Home Meds: 13:28 Celexa 20 mg Oral tab 1 tab once daily [Active]; fentanyl 25 mcg/hr Topical pt72 1 ph patch every 72 hours [Active]; Pepcid 20 mg Oral tab 1 tab once daily [Active]; Percocet 10-325 mg Oral tab 1 tab every 6 hours [Active]; Reglan 10 mg Oral tab 1 tab once daily [Active]; Wellbutrin SR 150 mg Oral TbER 1 tab 2 times per day [Active]; - PMHx: 13:28 Asthma; Cerebral Palsy; cluster headaches; decubitus ulcers on feet; GERD; ph Hydrocephalus; Hypertension; spina bifida; - Immunization history:: Adult Immunizations unknown. - Social history:: Smoking status: Patient reports the use of cigarette tobacco products, smokes one-half pack cigarettes per day. Screenin:38 Abuse screen: Denies threats or abuse. Denies injuries from another. Nutritional ph screening: No deficits noted. Tuberculosis screening: No symptoms or risk factors identified. Fall Risk None identified. Assessment: 15:31 Reassessment: Patient appears in no apparent distress at this time. Patient and/or ph family updated on plan of care and expected duration. Pain level reassessed. Pt asleep w/ equal and unlabored respiration, Spo2 decreased to 87% RA, placed on NC at 2L. 16:40 Reassessment: Patient appears in no apparent distress at this time. Patient and/or ph family updated on plan of care and expected duration. Pain level reassessed. Pt resting comfortably w/ eyes closed, respirations even and unlabored, report called to Rafal DISLA at [facility], transfer form signed by pt, awaiting EMS for transport. Vital Signs: 13:25 BP 133 / 96; Pulse 102; Resp 18; Temp 98.4; Pulse Ox 96% on R/A; Weight 127.46 kg; ph Height 4 ft. 11 in. (149.86 cm); 15:31 BP 131 / 89; Pulse 91; Resp 16; Pulse Ox 95% on 2 lpm NC; ph 17:00 BP 128 / 91; Pulse 87; Resp 18; Temp 98.1; Pulse Ox 97% on R/A; ph 13:25 Body Mass Index 56.75 (127.46 kg, 149.86 cm) ph Heber Coma Score: 14:38 Eye Response: spontaneous(4). Verbal Response: oriented(5). Motor Response: obeys scott commands(6). Total: 15. 14:40 Eye Response: spontaneous(4). Verbal Response: oriented(5). Motor Response: obeys scott commands(6). Total: 15. ED Course: 13:06 Patient arrived in ED. eb 13:09 Cleopatra Cade, RN is Primary Nurse. ph 13:13 Clifton Quezada MD is Attending Physician. scott 13:28 Triage completed. ph 13:28 Arm band placed on Patient placed in an exam room, on a stretcher, on pulse oximetry. ph 13:38 Patient has correct armband on for positive identification. Placed in gown. Bed in low ph position. Call light in reach. Side rails up X 1. Pulse ox on. NIBP on. 14:12 Inserted saline lock: 22 gauge in right forearm, using aseptic technique. Blood ss collected. 14:26 EKG completed in triage. Results shown to . eh3 14:[address] Quezada with [facility] from [facility]. 14:42 CT Head Brain wo Cont In Process Unspecified. EDMS 14:[address] Richardson the neurosurgeon educational psychology professor for [facility] with Dr. Damien galvan for patient transfer consultation. 14:56 administrative approval given by Iona Hodges Grainer Machine Delivery Architect/ patient eb has been accepted to [facility]/ Dr. Whitt has accepted the patient in transfer/ report to be called to the charge nurse at [phone]. 15:10 Shuntogram XRAY In Process Unspecified. EDMS 15:12 COVID swab sent to lab. jw7 17:13 No provider procedures requiring assistance completed. Patient transferred, IV remains ph in place. Administered Medications: 14:33 Drug: Phenergan (promethazine) 12.5 mg Route: IVP; Site: right forearm; ph 17:12 Follow up: Response: No adverse reaction ph 14:35 Drug: NS 0.9% 500 ml Route: IV; Rate: bolus; Site: right forearm; ph 17:11 Follow up: Response: No adverse reaction; RASS: Alert and Calm (0); IV Status: ph Completed infusion; IV Intake: 500ml 14:35 Drug: Dilaudid (HYDROmorphone) 1 mg Route: IVP; Site: right forearm; ph 17:12 Follow up: Response: No adverse reaction ph 14:36 Drug: NS 0.9% 1000 ml Route: IV; Rate: 125 ml/hr; Site: right forearm; ph 17:11 Follow up: Response: No adverse reaction; IV Status: Infusion continued upon transfer ph 17:09 Drug: Phenergan (promethazine) 12.5 mg Route: IVP; Site: right forearm; ph 17:12 Follow up: Response: No adverse reaction ph 17:11 Drug: Dilaudid (HYDROmorphone) 0.5 mg Route: IVP; Site: right forearm; ph 17:12 Follow up: Response: No adverse reaction; Pain is decreased; RASS: Alert and Calm (0) ph Intake: 17:11 IV: 500ml; Total: 500ml. ph Outcome: 14:43 ER care complete, transfer ordered by MD. chavez 17:13 Transferred by ground EMS [facility]. to [facility], Transfer form ph completed. X-rays sent w/ patient. 17:13 Condition: good 17:14 Patient left the ED. ph Signatures: Dispatcher [employer] EDClifton Singleton MD MD cha Smirch, Shelby, RN RN Cleopatra Cade RN RN Idalia Corbett Jodi 7 Michelle Cade [facility]
--- NOTE | 2021-10-20 14:44 | EDPHYS ---
Physician Documentation [facility] Name: Roland Feldman Jr Age: 36 yrs Sex: Male : 1985 Arrival Date: 10/20/2021 Time: 13:06 Bed 18 Private MD: JESSICA Physician Clifton Quezada HPI: 10/20 14:37 This 36 yrs old Black Male presents to ER via EMS with complaints of headache , shunt scott malfunction. 14:37 The patient complains of pain to the top of head, forehead, left frontal area, left scott side of the back of head, left occipital area, left base of the skull, right frontal area, right side of the back of head, right occipital area and right base of the skull. The patient describes the headache as constant. Onset: The symptoms/episode began/occurred 2 day(s) ago. Associated signs and symptoms: Pertinent positives: nausea. Severity of symptoms: At its worst the pain was moderate, in the emergency department the pain is unchanged. Headache History: The patient has had previous headaches and this one is similar to previous episodes. The symptoms are alleviated by nothing. the symptoms are aggravated by nothing. The patient has not experienced similar symptoms in the past. Historical: - Allergies: 13:28 Amoxicillin; ph 13:28 Bactrim; ph 13:28 Ciprofloxacin; ph 13:28 CLAVULANIC ACID; ph 13:28 Demerol; ph 13:28 Doxycycline; ph 13:28 Levofloxacin; ph 13:28 Morphine; ph 13:28 PENICILLINS; ph 13:28 Toradol; ph 13:28 TRIMETHOPRIM; ph 13:28 Vancomycin; ph 13:28 Zofran; ph - Home Meds: 13:28 Celexa 20 mg Oral tab 1 tab once daily [Active]; fentanyl 25 mcg/hr Topical pt72 1 ph patch every 72 hours [Active]; Pepcid 20 mg Oral tab 1 tab once daily [Active]; Percocet 10-325 mg Oral tab 1 tab every 6 hours [Active]; Reglan 10 mg Oral tab 1 tab once daily [Active]; Wellbutrin SR 150 mg Oral TbER 1 tab 2 times per day [Active]; - PMHx: 13:28 Asthma; Cerebral Palsy; cluster headaches; decubitus ulcers on feet; GERD; ph Hydrocephalus; Hypertension; spina bifida; - Immunization history:: Adult Immunizations unknown. - Social history:: Smoking status: Patient reports the use of cigarette tobacco products, smokes one-half pack cigarettes per day. ROS: 14:38 Constitutional: Negative for fever, chills, and weight loss, Eyes: Negative for injury, scott pain, redness, and discharge, ENT: Negative for injury, pain, and discharge, Neck: Negative for injury, pain, and swelling, Cardiovascular: Negative for chest pain, palpitations, and edema, Respiratory: Negative for shortness of breath, cough, wheezing, and pleuritic chest pain, Abdomen/GI: Negative for abdominal pain, nausea, vomiting, diarrhea, and constipation, Back: Negative for injury and pain, : Negative for injury, bleeding, discharge, and swelling, MS/Extremity: Negative for injury and deformity, Skin: Negative for injury, rash, and discoloration, Psych: Negative for depression, anxiety, suicide ideation, homicidal ideation, and hallucinations, Allergy/Immunology: Negative for hives, rash, and allergies, Endocrine: Negative for neck swelling, polydipsia, polyuria, polyphagia, and marked weight changes, Hematologic/Lymphatic: Negative for swollen nodes, abnormal bleeding, and unusual bruising. 14:38 Neuro: Positive for headache. Exam: 14:38 Constitutional: This is a well developed, well nourished patient who is awake, alert, scott and in no acute distress. Head/Face: Normocephalic, atraumatic. Eyes: Pupils equal round and reactive to light, extra-ocular motions intact. Lids and lashes normal. Conjunctiva and sclera are non-icteric and not injected. Cornea within normal limits. Periorbital areas with no swelling, redness, or edema. ENT: Nares patent. No nasal discharge, no septal abnormalities noted. Tympanic membranes are normal and external auditory canals are clear. Oropharynx with no redness, swelling, or masses, exudates, or evidence of obstruction, uvula midline. Mucous membranes moist. Neck: Trachea midline, no thyromegaly or masses palpated, and no cervical lymphadenopathy. Supple, full range of motion without nuchal rigidity, or vertebral point tenderness. No Meningismus. Chest/axilla: Normal chest wall appearance and motion. Nontender with no deformity. No lesions are appreciated. Cardiovascular: Regular rate and rhythm with a normal S1 and S2. No gallops, murmurs, or rubs. Normal PMI, no JVD. No pulse deficits. Respiratory: Lungs have equal breath sounds bilaterally, clear to auscultation and percussion. No rales, rhonchi or wheezes noted. No increased work of breathing, no retractions or nasal flaring. Abdomen/GI: Soft, non-tender, with normal bowel sounds. No distension or tympany. No guarding or rebound. No evidence of tenderness throughout. Back: No spinal tenderness. No costovertebral tenderness. Full range of motion. Male : Normal genitalia with no discharge or lesions. Neuro: Awake and alert, GCS 15, oriented to person, place, time, and situation. Cranial nerves II-XII grossly intact. Motor strength 5/5 in all extremities. Sensory grossly intact. Cerebellar exam normal. Normal gait. Psych: Awake, alert, with orientation to person, place and time. Behavior, mood, and affect are within normal limits. 14:38 Neck: ROM/movement: is normal, no acute changes, Meningeal signs: are not present, Kernig's sign is negative, Brudzinski's sign is negative. 14:40 Skin: Warm, dry with normal turgor. Normal color with no rashes, no lesions, and no scott evidence of cellulitis. 14:44 ECG was reviewed by the Attending Physician. [facility] Vital Signs: 13:25 BP 133 / 96; Pulse 102; Resp 18; Temp 98.4; Pulse Ox 96% on R/A; Weight 127.46 kg; ph Height 4 ft. 11 in. (149.86 cm); 15:31 BP 131 / 89; Pulse 91; Resp 16; Pulse Ox 95% on 2 lpm NC; ph 17:00 BP 128 / 91; Pulse 87; Resp 18; Temp 98.1; Pulse Ox 97% on R/A; ph 13:25 Body Mass Index 56.75 (127.46 kg, 149.86 cm) ph [place] Coma Score: 14:38 Eye Response: spontaneous(4). Verbal Response: oriented(5). Motor Response: obeys scott commands(6). Total: 15. 14:40 Eye Response: spontaneous(4). Verbal Response: oriented(5). Motor Response: obeys scott commands(6). Total: 15. MDM: 13:13 Patient medically screened. scott 14:40 Differential diagnosis: cluster headache, temporal arteritis, tension headache. Data scott reviewed: vital signs, nurses notes, lab test result(s), EKG, radiologic studies, CT scan, plain films. Data interpreted: secured entrance monitor: rate is 102 beats/min, rhythm is normal sinus rhythm, regular. Test interpretation: by ED physician or midlevel provider: ECG, plain radiologic studies. Counseling: I had a detailed discussion with the patient and/or guardian regarding: the historical points, exam findings, and any diagnostic results supporting the discharge/admit diagnosis, lab results, radiology results. 10/20 13:37 Order name: Basic Metabolic Panel; Complete Time: 14:59 [facility] 10/20 13:37 Order name: CBC with Diff; Complete Time: 14:59 [facility] 10/20 13:37 Order name: LFT's; Complete Time: 14:59 [facility] 10/20 13:37 Order name: Magnesium; Complete Time: 14:59 [facility] 10/20 13:37 Order name: NT PRO-BNP; Complete Time: 14:59 [facility] 10/20 13:37 Order name: PT-INR; Complete Time: 14:59 [facility] 10/20 13:37 Order name: Troponin HS; Complete Time: 14:59 [facility] 10/20 13:37 Order name: CT Head Brain wo Cont; Complete Time: 15:17 [facility] 10/20 13:37 Order name: Shuntogram XRAY; Complete Time: 15:53 [facility] 10/20 14:59 Order name: SARS-COV-2 RT PCR (Document "Date of Onset" if Symptomatic) [facility] 10/20 13:37 Order name: EKG; Complete Time: 13:38 [facility] 10/20 13:37 Order name: Cardiac monitoring; Complete Time: 14:26 [facility] 10/20 13:37 Order name: EKG - Nurse/Tech; Complete Time: 14:26 [facility] 10/20 13:37 Order name: IV Saline Lock; Complete Time: 14:26 [facility] 10/20 13:37 Order name: Labs collected and sent; Complete Time: 14:26 [facility] 10/20 13:37 Order name: O2 Per Protocol; Complete Time: 13:39 [facility] 10/20 13:37 Order name: O2 Sat Monitoring; Complete Time: 13:39 [facility] EC:44 Rate is 89 beats/min. Rhythm is regular. QRS [place] is Normal. ID interval is normal. QRS scott interval is normal. QT interval is normal. No Q waves. T waves are Normal. Clinical impression: Normal ECG and No evidence of ischemia. Interpreted by me. Reviewed by me. Administered Medications: 14:33 Drug: Phenergan (promethazine) 12.5 mg Route: IVP; Site: right forearm; ph 17:12 Follow up: Response: No adverse reaction ph 14:35 Drug: NS 0.9% 500 ml Route: IV; Rate: bolus; Site: right forearm; ph 17:11 Follow up: Response: No adverse reaction; RASS: Alert and Calm (0); IV Status: ph Completed infusion; IV Intake: 500ml 14:35 Drug: Dilaudid (HYDROmorphone) 1 mg Route: IVP; Site: right forearm; ph 17:12 Follow up: Response: No adverse reaction ph 14:36 Drug: NS 0.9% 1000 ml Route: IV; Rate: 125 ml/hr; Site: right forearm; ph 17:11 Follow up: Response: No adverse reaction; IV Status: Infusion continued upon transfer ph 17:09 Drug: Phenergan (promethazine) 12.5 mg Route: IVP; Site: right forearm; ph 17:12 Follow up: Response: No adverse reaction ph 17:11 Drug: Dilaudid (HYDROmorphone) 0.5 mg Route: IVP; Site: right forearm; ph 17:12 Follow up: Response: No adverse reaction; Pain is decreased; RASS: Alert and Calm (0) ph Disposition Summary: 10/20/21 14:43 Transfer Ordered Transfer Location: [facility] scott Reason: Higher level of care scott Condition: Stable scott Problem: new scott Symptoms: have improved scott Accepting Physician: to , neurosurgery(10/20/21 17:14) ph Diagnosis - Headache - FILM NUMBERER malfunction scott Forms: - Medication Reconciliation Form scott - SBAR form scott Signatures: Dispatcher [employer] EDClifton Singleton MD MD cha Hall, Patricia RN RN ph Corrections: (The following items were deleted from the chart) 14:53 13:38 Chest Single View+RAD.RAD.[email or web address] ordered. EDMA EDMA 17:14 14:43 to , neurosurgery scott ph
[2021-10-20 14:45] LABS: Absolute Lymphocytes (CBC) 1.8 K/uL (0.7-4.9); Hematocrit 48.6 % (39.6-49.0); Lymphocytes % 15.6 % (15.3-44.8); MPV 8.7 fL (7.6-11.3); RBC Red Blood Cell Count 5.57 M/uL (4.33-5.43)
[2021-10-20 14:46] LABS: Protime INR 1.03
[2021-10-20 14:53] LABS: ALT/SGPT 170 U/L (12-78); AST/SGOT 49 U/L (15-37); Albumin 3.4 g/dL (3.4-5.0); BUN Blood Urea Nitrogen 15 mg/dL (7-18); Bicarbonate 28 mmol/L (21-32); Bilirubin Direct 0.2 mg/dL (0-0.2); Bilirubin Total 0.5 mg/dL (0.2-1.0); Glucose Level 116 mg/dL (74-106); Magnesium 2.2 mg/dL (1.8-2.4); Potassium 4.4 mmol/L (3.5-5.1); Sodium Level 138 mmol/L (136-145)
[2021-10-20 14:58] LABS: Alkaline Phosphatase 149 U/L (45-117); NT PRO-BNP 13 pg/mL (<125); Protein, Total 8.3 g/dL (6.4-8.2); Troponin High Sensitivity 3.1 pg/mL (<58.9)
--- NOTE | 2021-10-20 15:11 | RAD REPORT ---
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 All CT scans are performed using dose optimization technique as appropriate and may include automated exposure control or mA/KV adjustment according to patient size. FINDINGS: No intracranial hemorrhage, mass, edema or shift of mid-line structures. No cortical level infarction. No cortical edema or sulcal effacement. Ventricles are decompressed. Right frontal and p osterior right parietal shunt tubes are in place. Positioning has not change from prior imaging. Unde rlying brain parenchymal developmental abnormalities are present with no new brain parenchymal findin gs seen. Mastoid air cells and visualized portions of the paranasal sinuses are clear. No acute bony findings. IMPRESSION: Noncontrast CT head imaging shows no acute finding. Above detailed findings are stable from 10/05/2021 imaging.
--- NOTE | 2021-10-20 15:19 | RAD REPORT ---
EXAM DESCRIPTION: RAD - Shuntogram - 10/20/2021 3:08 pm CLINICAL HISTORY: PAIN FINDINGS: There are 8 images of the head, neck, chest and abdomen obtained as a shunt series. Right frontal and posterior right parietal shunt tube is in place extending to midline. Old remnant s arevalo tubing is seen as well. There is no abnormal bend or kink of the tubing. The chest, abdomen and pelvis soft tissues show no suspicious or unexpected finding. 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 IMPRESSION: Shunt series shows no suspicious or unexpected finding.
[2021-10-20] MEDS ORDERED: HYDROMORPHONE HCL 0.5 MG/0.5 ML INJ ONE (17:10)
[2021-10-20 19:41] VITALS: BP 128/91; TEMP 98.1; O2SAT 97
--- NOTE | 2021-10-23 09:45 | EKG ---
Test Date: 2021-10-20 Test Time: 14:26:50 Contracting Executive: SHAY MEASUREMENT RESULTS: Intervals: Rate: 89 [place]: 148 QRSD: 78 QT: 334 QTc: 406 [place]: P: 52 [place]: 148 QRS: 55 T: 60 INTERPRETIVE STATEMENTS: Normal sinus rhythm with sinus arrhythmia Normal ECG Compared to ECG 05/16/2021 20:11:15 No significant changes Electronically Signed On 10-23-21 09:36:25 CDT by Justin Heredia
== END 2021-10-20 17:14 | disposition short-term general hospital (02) ==
LOC: ER 13:04
DX: R51.9 Headache, unspecified (principal); T85.09XA Other mechanical complication of ventricular intracranial (communicating) shunt, initial encounter; G80.9 Cerebral palsy, unspecified; Q05.9 Spina bifida, unspecified; I10 Essential (primary) hypertension; F17.210 Nicotine dependence, cigarettes, uncomplicated; Z88.0 Allergy status to penicillin; Z88.1 Allergy status to other antibiotic agents; Z88.3 Allergy status to other anti-infective agents; Z88.5 Allergy status to narcotic agent; Z88.8 Allergy status to other drugs, medicaments and biological substances; Z20.822 Contact with and (suspected) exposure to COVID-19
CPT/HCPCS: 96361; 93005; 85025; 80048; 36415; 83735; 85610; 80076; 84484; 83880; 70450; 75809; 49427; 96375; 96374; 99285; U0003; J2550 ×2; J1170 ×2; J7030

== ENCOUNTER 2021-12-26 02:29 | Observation (INO) | payer OTHER ==
--- OUTSIDE RECORDS SUMMARY | 2021-12-26 02:44 | XMS REPORT | Continuity of Care Document ---
:1985 Author Organization [facility] t Address [address] [place] [address] Care Team Providers Name Role Phone Sharpless Primary Care Physician Nichole Attending Clinician Unavailable ELLIE Attending Clinician Unavailable Alex ROMO Attending Clinician Ellie NUNO Attending Clinician Christiano RN, M Attending Clinician Attending Clinician Unavailable Jarod NUNO Attending Clinician Mike NUNO Attending Clinician Romelia NUNO Attending Clinician Tao NUNO, H Attending Clinician Shaikh YAAKOV Attending Clinician Duane GARCIA Attending Clinician CINTHYA Attending Clinician Unavailable Cinthya NUNO Attending Clinician GERRY ALEXIS Attending Clinician Unavailable SANFORD Attending Clinician Unavailable Sanford DO Attending Clinician CICI NEFF Attending Clinician Unavailable Cici Lam Attending Clinician Christ SERNA Attending Clinician Unavailable Christ Serna MD Attending Clinician Kb BALDERRAMA Attending Clinician Unavailable Conchis BUSINESS MANAGEMENT ANALYST, J Attending Clinician Hi FONSECA Attending Clinician Unavailable Sissy CORK CUTTER, G Attending Clinician Only, Db Test Attending Clinician Unavailable Toño NUNO Attending Clinician TOÑO Attending Clinician Unavailable Analia ROMO, F Attending Clinician Cassandra HELMS Attending Clinician Unavailable MITCHELL Attending Clinician Unavailable LAMAR GENAO Attending Clinician Unavailable ELLIE Admitting Clinician Unavailable Ellie NUNO Admitting Clinician MIKE Admitting Clinician Unavailable Mike NUNO Admitting Clinician CINTHYA Admitting Clinician Unavailable Cinthya NUNO Admitting Clinician GASTON AHMADI Admitting Clinician Unavailable CICI NEFF Admitting Clinician Unavailable Kb BALDERRAMA Admitting Clinician Unavailable Hi FONSECA Admitting Clinician Unavailable ALEX Admitting Clinician Unavailable LAMAR GENAO Admitting Clinician Unavailable Payers Payer Name Policy Type Policy Number Effective Date Expiration Date S samir [facility] [id number] 2020 PLUS 00:00:00 [facility] [id number] 2020 00:00:00 Problems Condition Condition Condition Status Onset Resolution Last Treating Co mments Source Name Details Category Date Date Treatment Clinician Date Hyperglyce Hyperglyce Disease Active U braulio vasquez 12-19 ity of 00:00: [address] Diabetic Diabetic Disease Active Unive rs ketoacidos ketoacidos 12-17 [place] y of [place] without is without [place] coma coma 00 Medical associated associated Br anch with type with type 2 diabetes 2 diabetes mellitus mellitus Decubitus Decubitus Disease Active Uni vers ulcer of ulcer of 05 ity of heel, heel, 00:00: [place] left, left, 00 Medical unstageabl unstageabl Br anch e e Pyuria Pyuria Disease Active Univers 6-05 ity of 00:00: [place] 00 [facility] Branch Chronic Chronic Disease Active Univers suprapubic suprapubic 6 it y of catheter catheter 00:00: [place] [facility] Branch Uncontroll Uncontroll Disease Active U braulio ed ed 6 ity of diabetes diabetes 00:00: [place] mellitus mellitus 00 Medica l with with Branch complicati complicati ons ons Spina Spina Disease Active Univers bifida bifida 12-15 ity of 00:00: [place] [facility] Wound Wound Disease Active Univers infection infection - ity of 00:00: [place] 00 [facility] Branch Chills Chills Disease Active Univers 5- ity of 00:00: [place] 00 [facility] Branch Complicate Complicate Disease Active U braulio d urinary d urinary 1-20 ity of tract tract 00:00: [place] infection infection 00 [facility] Branch Hyperglyce Hyperglyce Disease Active [facility] without without 00:00: Medical ketosis ketosis 00 [...] oria HEADACHE 11-14 09:20:00 l ACUTE 00:00: [place] HEADACHE 00 Active 11/14/2017 [facility] [place] Spina Spina Disease Active [facility] Pyelonephr Pyelonephr Disease Active [facility] itis 6[facility]11 [facility] 00:[facility]: Medical 00 [place] Morbid Morbid Disease Active Univers obesity obesity [...] Erwin benjamin (disorder) d 01:05:55 l Asthma [place] (disorder) Resolved Problem 03/06/2019 [facility] Bronchitis Problem Resolve 2019-03-06 Memoria (disorder) d 01:05:55 l Jason Bronchitis (disorder) Resolved Problem 03/06/2019 [facility] Cerebral Problem Resolve 2019-03-06 Me moria palsy d 01:05:55 l (disorder) Cerebral He rmann palsy (disorder) Resolved Problem 03/06/2019 [facility] Hydrocepha Problem Resolve 2019-03-06 Memoria bam d 01:05:55 l (disorder) Christian n Hydrocepha bam (disorder) Resolved Problem 03/06/2019 [facility] Osteomyeli Problem Resolve 2019-03-06 Memoria tis d 01:05:55 l (disorder) Christian n Osteomyeli tis (disorder) Resolved Problem 03/06/2019 [facility] Acute pain Problem Active 2019-03-06 M emoria (finding) 01:05:55 l Acute Jason pain (finding) Active Problem 03/06/2019 [facility] Headache Problem Active 2019-03-06 Mem oria (finding) 01:05:55 l Headache Christian n (finding) Active Problem 03/06/2019 [facility] History of Past Illness Condition Condition Condition [...] Medical Branch Metoclop Propensi [facility] N[facility] and/or 2-20 ity of Hcl adverse Vomiting 00:00: [place] reaction 00 Medical s Branch METOCLOP DRUG Active N/V 2016-07 Univers RAMIDE INGREDI 2-20 ity of HCL 00:00: [place] 00 Medical Branch Sulfamet Propensi Active Hives 2017- [facility] hoxazole ty to 6-11 [facility] -Trim[facility] adverse 00:00: Medical oprim reaction 00 Center s Levoflox Propensi Active Hives 2017- [facility] acin ty to 6-11 [facility] adverse 00:00: Medical reaction 00 Center s SULFAMET Allergy Active High Hives 2017- [facility] HOXAZOLE 6-11 [facility] -TRIMETH 00:00: Medical OPRIM 00 Center LEVOFLOX Allergy Active High Hives 2017- [facility] ACIN 6[facility]11 [facility] 00:[facility]: Medical 00 Center MORPHINE Allergy Active High Hives 2017- [facility] 00[facility]00: Medical 00 Center KETOROLA Allergy Active High Rash 2017- [facility] C 6-11 [facility] 00:00: Medical 00 Center VANCOMYC Allergy Active High Rash 2017- [facility] IN 6-11 [facility] ANALOGUE 00:00: Medical S 00 Center SESAME Allergy Active Hives 2017- [facility] SEED 6-11 [facility] 00:00: Medical 00 Center Morphine Propensi Active Hives 2016- [facility] ty to 6-11 [facility] adverse 00:00: Medical reaction 00 Center s ONDANSET Allergy Active N\\T\\V 2016- [facility] KUMAR HCL 6-11 [facility] (PF) 00:00: Medical 00 Center Sesame Propensi Active Hives 2017- [facility] Seed ty to 6-11 [facility] adverse 00:00: Medical reaction 00 Center s Ketorola Propensi Active Rash 2017- [facility] c ty to 6-11 [facility] adverse 00:00: Medical reaction 00 Center s Vancomyc Propensi Active Rash 2017- [facility] in ty to 6-11 [facility] Analogue adverse 00:00: Medical s reaction 00 Center s Ondanset Propensi Active Nausea And 2017-[address] kumar Hcl ty to Vomiting 6-11 [facility] (Pf) adverse 00:00: Medical reaction 00 Center s Sulfa Propensi Active Other - See Uni vers (Sulfona ty to comments 1 ity of mide adverse 00:00: [place] Antibiot reaction 00 Medica l ics) s Branch Sulfamet Propensi Active Other - See U nivers hoprim ty to comments 07-18 ity of Ds adverse 00:00: [place] reaction 00 Medical s Branch Vancomyc Propensi Active Other - See U nivers in ty to comments 07-18 ity of adverse 00:00: [place] reaction 00 Medical s Branch Sulfa Propensi Active Other - See Uni vers (Sulfona ty to comments 07-18 ity of mide adverse 00:00: [place] Antibiot reaction 00 Medica l ics) s Branch SULFA Drug Active Other-Cmnt Univer s (SULFONA Class 07-18 ity of MIDE 00:00: [place] ANTIBIOT 00 [...] Active Hives Univer s acin ty to 5- ity of adverse 00:00: [place] reaction 00 [...] Medical Branch Morphine Adverse Active Info Not Commo n Sulfate Reaction Available [facility] Levaquin Adverse Active Info Not Commo n Reaction Available [facility] Zofran Adverse Active Info Not Common Reaction Available [facility] Minocin Minocin Active [facility] [place] Zofran Zofran Active [facility] [place] Levaquin Levaquin Active Memori a l Jason Bactrim Bactrim Active Memoria l [place] amoxicil amoxicil Active [facility]ori [place] morphine morphine Active Memori a l Jason Toradol Toradol Active [facility]oria l [place] Social History Social Habit Start Date Stop Date Quantity Comments Source History of tobacco Cigarette Smoker [facility] Exposure to 2021-12-10 2021-12-20 Not sure [facility] SARS-CoV-2 (event) 00:00:00 12:04:00 [facility] Alcohol intake 2021-12-19 2021-12-19 0 /d University of 00:00:00 00:00:00 [facility] Cigarettes smoked 2016-12-25 2016-12-25 [facility] current (pack per 00:00:00 00:00:00 [facility] Center ) - Reported Tobacco use and 2016-07-18 2016-07-18 Never used Universit y of exposure 00:00:00 00:00:00 [facility] Sex [birth year] At [birth year] Universit y of 00:00:00 00:00:00 [facility] Smoking Status Start Date Stop Date Source Current every day smoker 2016-07-18 00:00:00 Uni versity [facility] [place] [facility] Medications Ordered Filled Start Stop Current Ordering Indication Dosage Frequency Signature Comments Components Source Medication Medication Date Date Medication? Clinician (SIG) Name Name hydromorpho Yes 4ug Take 4 mcg Univers ne HCl 6-10 by mouth ity of (HYDROMORPH 19:50: every 12 [place] ONE ORAL) 08 (twelve) Medica l hours. Branch magnesium Yes 400mg 400 mg, Univ ers oxide 6-10 Oral, ity of (MAG-OX 14:00: DAILY, [place] 400) tablet 00 First dose Me dical 400 mg on Sat [place] 12/22/21 at 0900, Until Discontinu ed, Routine HYDROmorpho 2021- No 1mg 1 mg, Slow Univers ne 12-22 IV Push, ity of (DILAUDID) 05:15: 04:42 ONCE, 1 Tim as injection 1 00 :00 dose, On Medi efrain mg Sat [place] 12/22/21 at 0015, Routine
Use approved by (Faculty): ADC PROVIDER acetaminoph Yes 1000mg 1,000 mg, Univers en 6-10 Oral, Q8H, ity of (TYLENOL) 03:00: First dose [place] tablet 00 on Libra Medical 1,000 mg 12/21/21 at Branch 2200, Until Discontinu ed, Routine insulin Yes [id number] 52U inject 52 U nivers glargine 6-10 Units ity of 100 unit/mL 00:00: under the [place] injection 00 skin at Medical bedtime. Branch Insulin 2021- Yes [id number] Use as Uni vers Safety 12-22 directed ity of [place], 00:00: 04:59 [place] Disp, 29 00 :00 Medical gauge x Branch 316" Ndle fluconazole 2021- Yes [id number] 200mg Take 1 Univers 200 mg 12-22 tablet by ity of tablet 00:00: 04:59 mouth [place] 00 :00 daily for Medical 12 days. Branch magnesium 2021- No 4g 4 g, IV Univ ers sulfate in 12-21 Piggyback, it y of water 4 20:45: 21:58 ONCE, 1 [place] gram/50 mL 00 :00 dose, On Medic al (8 %) IV Libra 12/21/21 Branc h Piggyback 4 at 1545, g Routine HYDROmorpho Yes 4mg 4 mg, Unive rs ne 12-21 Oral, ity of (DILAUDID) 19:32: Q6HPRN, [place] tablet 4 mg 47 Starting Medi efrain on Sat Branch 12/21/21 at 1432, Until Discontinu ed, Routine, Pain (scale 7-10) insulin Yes 30U 30 Units, Unive rs glargine 12-21 Subcutaneo ity o f (LANTUS 02:00: us, QHS, [place] U-100) 00 First dose Medical injection on Sat Branch 30 Units 12/20/21 at 2100, Until Discontinu ed, Routine HYDROmorpho 2021- No .5mg 0.5 mg, Un ela ne 12-2009 Slow IV ity of (DILAUDID) 16:28: 19:33 Push, [place] injection 03 :06 Q4HPRN, Medical 0.5 mg Starting Branch on Sat12/20/21 at 1128, Until Libra 12/21/21 at 1433, Routine, Pain (scale 7-10)
U se approved by (Faculty): ADC PROVIDER fluconazole Yes 200mg 200 mg, Un ela (DIFLUCAN) 12-20 Oral, ity of tablet 200 14:45: DAILY, [place] mg 00 First dose Medical on Sat Branch 12/20/21 at 0945, Until Discontinu ed, SAHARA
Re ason for Anti-Infec tive: Empiric Therapy for Suspected Infection< br>Empiric Therapy Site: Urine
D uration of therapy: 72 hours enoxaparin Yes 40mg 40 mg, Unive rs (LOVENOX) 12-20 Subcutaneo ity of injection 14:00: us, DAILY, [place] 40 mg 00 First dose Medical on Sat Branch 12/20/21 at 0900, Until Discontinu ed, Routine tamsulosin Yes .4mg 0.4 mg, Univ ers (FLOMAX) 12-20 Oral, ity of capsule 0.4 14:00: DAILY, [place] mg 00 First dose Medical on Sat Branch 12/20/21 at 0900, Until Discontinu ed, Routine insulin 2021- No 10U 10 Units, Univ ers glargine 6-08 06-08 Subcutaneo ity of (LANTUS 12:00: 12:51 us, ONCE, [place] U-100) 00 :00 1 dose, On Medical injection Sat12/20/21 Bran ch 10 Units at 0700, Routine HYDROmorpho 2021- No 1mg 1 mg, Slow Univers ne 12-20 IV Push, ity of (DILAUDID) 10:00: 09:23 ONCE, 1 Tim as injection 1 00 :00 dose, On Medi efrain mg Sat12/20/21 Branch at 0500, Routine
Use approved by (Faculty): ADC PROVIDER HYDROmorpho 2021- No 4mg 4 mg, Univ ers ne 12-20 Oral, ity of (DILAUDID) 08:40: 16:28 [id number], [place] tablet 4 mg 04 :14 Starting Medi efrain on Sat Branch 12/20/21 at 0340, Until Sat12/20/21 at 1128, Routine, Pain (scale 7-10) HYDROmorpho 2021- No 1mg 1 mg, Slow Univers ne 12-20 IV Push, ity of (DILAUDID) 06:15: 05:41 ONCE, 1 Tim as injection 1 00 :00 dose, On Medi efrain mg Sat12/20/21 Branch at 0115, Routine
Use approved by (Faculty): ADC PROVIDER aztreonam 2021- No 1000mg 1,000 mg, Univers (AZACTAM) 12-20 IV ity of 1,000 mg in 05:30: 16:58 Piggyback, [place] NaCl 0.9% 00 :42 Q8H ABX, Medica l (NS) 100 mL First dose Br anch MINI-BAG on Sat12/20/21 at 0030, Until Discontinu ed, Administer over 30 Minutes, 100 mL
Reas on for Anti-Infec tive: Empiric Therapy for Suspected Infection< br>Empiric Therapy Site: Urine
D uration of therapy: 7 days Sliding Yes Subcutaneo Univ ers Scale 6-08 us, Q4H, ity of Insulin-Reg 05:00: First dose Radha ular + Fsbg 00 on Sat Medica l Testing 12/20/21 at Branch 0000, Until Discontinu ed, Routine NaCl 0.9% 2021- No 1000mL at 125 Uni vers (NS) IV 12-20-08 mL/hr, IV ity of infusion 04:30: 16:28 Infusion, Tim as 1,000 mL 00 :27 CONTINUOUS Medic al , Starting Branch on Sat12/19/21 at 2330, Until Sat12/20/21 at 1128, Routine glucagon Yes 1mg 1 mg, Univers (GLUCAGEN 12-20 Intravenou ity of DIAGNOSTIC 04:10: s, PRN - Tim as KIT) 53 SEE Medical injection 1 INSTRUCTIO Br anch mg NS, Starting on Sat12/19/21 at 2310, Until Discontinu ed, Routine, For Blood glucose < 70 proCHLORper Yes 10mg 10 mg, Univ ers azine 12-20 Slow IV ity of (COMPAZINE) 04:10: Push, [place] injection 40 Q6HPRN, Medical 10 mg Starting Branch on Sat12/19/21 at 2310, Until Discontinu ed, Routine, Nausea and Vomiting (N/V) FENTanyl PF 2021- No 50ug 50 mcg, Un ela (SUBLIMAZE 12-20 Slow IV ity o f (PF)) 03:04: 03:37 Push, [place] injection 00 :00 ONCE, 1 Medical 50 mcg dose, On Sat12/19/21 at 2215, STAT NaCl 0.9% 2021- No 1000mL at 999 Uni vers (NS) IV 12-2008 mL/hr, ity of infusion 01:16: 01:54 Intravenou [place] 1,000 mL 00 :00 s, ONCE, 1 Medic al dose, On Sat12/19/21 at 2030, Routine insulin 2021- No .1U/kg 13.7 Units U nivers regular 12-2008 (rounded ity of human 01:15: 01:51 from 13.74 [place] (HUMULIN R) 00 :00 Units = Medic al injection 0.1 Branch 13.7 Units Units/kg ?137.4 kg), Slow IV Push, ONCE, 1 dose, On Sat12/19/21 at 2030, STAT FENTanyl PF 0 2021- No 50ug 50 mcg, Un ela (SUBLIMAZE 12-20-08 Slow IV ity o f (PF)) 01:00: 01:52 Push, [place] injection 00 :00 ONCE, 1 Medical 50 mcg dose, On Branch Sat12/19/21 at 2015, SAHARA NaCl 0.9% 2021- No 1000mL at 999 Uni vers (NS) IV 12-19-08 mL/hr, ity of infusion 23:47: 00:53 Intravenou [place] 1,000 mL 00 :00 s, ONCE, 1 Medic al dose, On Branch Sat12/19/21 at 1900, SAHARA hydromorpho 0 Yes 4ug Take 4 mcg Univers ne HCl 6-07 by mouth ity of (HYDROMORPH 23:17: every 12 [place] ONE ORAL) 17 (twelve) Medica l hours. Branch hydromorpho Yes 4ug Take 4 mcg Univers ne HCl 6-06 by mouth ity of (HYDROMORPH 18:29: every 12 [place] ONE ORAL) 31 (twelve) Medica l hours. Branch insulin Yes 52U inject 52 U nivers glargine 6-06 Units ity of 100 unit/mL 00:00: under the [place] injection 00 skin at Medical bedtime. Branch insulin Yes 15U inject 15 U nivers lispro, 6-06 Units ity of human, 100 00:00: under the [place] unit/mL 00 skin 3 Medical injection (three) Branch times daily before meals. insulin Yes 52U inject 52 U nivers glargine 6-06 Units ity of 100 unit/mL 00:00: under the [place] injection 00 skin at Medical bedtime. Branch insulin Yes 15U inject 15 U nivers lispro, 6-06 Units ity of human, 100 00:00: under the [place] unit/mL 00 skin 3 Medical injection (three) Branch times daily before meals. insulin 0 Yes 15U inject 15 U nivers lispro, 6-06 Units ity of human, 100 00:00: under the [place] unit/mL 00 skin 3 Medical injection (three) Branch times daily before meals. insulin 2021- No [id number] 52U inject 52 Univers glargine 12-18 06-10 Units ity of 100 unit/mL 00:00: 00:00 under the [place] injection 00 :00 skin at Medical bedtime. Branch HYDROmorpho 2021- No .5mg 0.5 mg, Un ela ne 12-17 06-06 Slow IV ity of (DILAUDID) 18:15: 18:14 Push, [place] injection 00 :00 Q8HPRN, Medical 0.5 mg Starting Branch on 12/17/21 at 1315, Until 12/18/21 at 1314, Routine, Pain (scale 7-10)
U se approved by (Faculty): [facility] PROVIDER insulin Yes .4U/kg/ 52 Units Uni vers glargine 6-05 d (rounded ity of (LANTUS 14:43: from 51.6 [place] U-100) 43 Units = Medical injection 0.4 Branch 52 Units Units/kg/d ay ?129 kg), Subcutaneo us, Q24H, First dose on 12/17/21 at 0944, Until Discontinu ed, Routine HYDROmorpho Yes 4mg 4 mg, Unive rs ne 6-05 Oral, ity of (DILAUDID) 02:21: Q6HPRN, [place] tablet 4 mg 55 Starting Medi efrain on Sat Branch 12/16/21 at 2120, Until Discontinu ed, Routine, Pain (scale 4-6) HYDROmorpho 2021- No 1mg 1 mg, Slow Univers ne 12-17 06-05 IV Push, ity of (DILAUDID) 02:21: 18:05 Q4HPRN, Tim as injection 1 39 :59 Starting Medi efrain mg on Sat Branch 12/16/21 at 2120, Until 12/17/21 at 1305, Routine, Pain (scale 7-10)
U se approved by (Faculty): [facility] PROVIDER Sliding Yes Subcutaneo Univ ers Scale 6-04 us, Q4H, ity of Insulin - 17:00: First dose [place] lispro 00 on [facility] Medical (humaLOG) + 12/16/21 at [facility] Fsbg 1200, Testing Until Discontinu ed, Routine insulin 2021-0 Yes .35U/kg 15 Units Uni vers lispro 6-04 /d (rounded ity of (human) 17:00: from 15.05 [place] (HumaLOG 00 Units = Medical U-100) 0.35 Branch injection Units/kg/d 15 Units ay ?129 kg), Subcutaneo us, TID MEALS, First dose on 12/16/21 at 1200, Until Discontinu ed, Routine proMETHazin Yes 25mg 25 mg, Univ ers e 12-16 Oral, ity of (PHENERGAN) 15:09: Q6HPRN, Tim as tablet 25 59 Starting Medica l mg on Sat Branch 12/16/21 at 1009, Until Discontinu ed, Routine, Nausea and Vomiting (N/V) HYDROmorpho 2021- No 4mg 4 mg, Univ ers ne 12-16 06-05 Oral, ity of (DILAUDID) 14:47: 02:22 Q6HPRN, Tim as tablet 4 mg 19 :08 Starting Medi efrain on Sat Branch 12/16/21 at 0947, Until 12/16/21 at 2122, Routine, Pain (scale 7-10) potassium 2021- No 20meq 20 mEq, IV Univers chloride 20 12-15 Piggyback, i ty of mEq/100 mL 23:45: 03:11 Q2H, 2 [place] (KCL) 20 00 :00 doses, Medical mEq/100 mL First dose [facility] RTU IVPB 20 on Fri mEq 12/15/21 at 1845, Last dose on Sat12/15/21 at 2000, 100 mL HYDROmorpho 2021- No 1mg 1 mg, Slow Univers ne 12-15 IV Push, ity of (DILAUDID) 18:08: 14:45 Q4HPRN, [place] injection 1 31 :34 Starting Medi efrain mg on Fri Branch 12/15/21 at 1308, Until 12/16/21 at 0945, Routine, Pain (scale 7-10)
U se approved by (Faculty): [facility] PROVIDER enoxaparin Yes 40mg 40 mg, Unive rs (LOVENOX) 12-15 Subcutaneo ity of injection 14:00: us, DAILY, [place] 40 mg 00 First dose Medical on Sat Branch 12/15/21 at 0900, Until Discontinu ed, Routine lactobacill Yes .5mg 0.5 mg, Uni vers us 12-15 Oral, BID, ity of acidophilus 13:00: First dose [place] tablet 0.5 00 on Sat Medical mg 12/15/21 at Branch 0800, Until Discontinu ed, Routine docusate Yes 100mg 100 mg, Unive rs (COLACE) 12-15 Oral, BID, ity o f capsule 100 13:00: First dose [place] mg 00 on Fri Medical 12/15/21 at Branch 0800, Until Discontinu ed, Routine cefTRIAXone No 1000mg 1,000 mg, Univers (ROCEPHIN) 12-1503 IV ity of 1,000 mg in 11:30: 16:04 Piggyback, [place] NaCl 0.9% 00 :40 Q24H ABX, Medic al (NS) 50 mL First dose Bra nch MINI-BAG on Sat12/15/21 at 0630, Until Discontinu ed, Administer over 30 Minutes, 50 mL
Reas on for Anti-Infec tive: Documented Infection< br>Documen lester Infection Site: Urine
D uration of Therapy: 7 days proMETHazin 2021- No 25mg 25 mg, IV Univers e 12-15 06-04 Piggyback, ity of (PHENERGAN) 11:22: 15:10 Q6HPRN, [place] 25 mg in 38 :15 Starting Medical NaCl 0.9% on Fri Branch (NS) 50 mL 12/15/21 at IV 0622, piggyback Until 12/16/21 at 1010, Routine, Nausea and Vomiting (N/V) acetaminoph Yes 650mg 650 mg, Un ela en 12-15 Oral, ity of (TYLENOL) 11:04: Q6HPRN, [place] tablet 650 03 Starting Medic al mg on Sat Branch 12/15/21 at 0604, Until Discontinu ed, Routine, Pain (scale 1-3), Temp > 38.5 C HYDROmorpho No 2mg 2 mg, Slow Univers ne 12-15 IV Push, ity of (DILAUDID) 11:03: 18:08 Q4HPRN, Tim as injection 2 22 :44 Starting Medi efrain mg on Sat Branch 12/15/21 at 0603, Until Sat12/15/21 at 1308, Routine, Pain (scale 7-10)
U se approved by (Faculty): [facility] PROVIDER NaCl 0.9% Yes 10mL 10 mL, Univer s (NS) 12-15 Slow IV ity of injection 10:58: [place], PRN, [place] 10 mL 34 Starting Medical on Sat Branch 12/15/21 at 0558, Until Discontinu ed, Routine, line maintenanc e NaCl 0.45% 2021- No 1000mL Univ ers (1/2NS) 12-15 ity of 1000 mL + 10:30: 14:45 [place] KCL 20 mEq 00 :34 Medical Branch D5W 0.45% No IV Univers NaCl 12-15 Infusion, ity of (1/2NS) 1 L 10:21: 14:45 at 200 Tim as + KCL 20 33 :34 mL/hr, PRN Medic al mEq - SEE Branch INSTRUCTIO NS, Starting on Sat12/15/21 at 0521, Until 12/16/21 at 0945, SAHARA, Blood glucose control acetaminoph 2021- No 1000mg 1,000 mg, Univers en 12-15 Oral, ity of (TYLENOL) 08:45: 07:36 ONCE, 1 [place] tablet 00 :00 dose, On Medical 1,000 mg Sat12/15/21 Branc h at 0345, SAHARA insulin 2021- No 8U 8 Units, Unive rs regular 12-15 Slow IV ity of human 08:15: 07:13 Push, [place] (HUMULIN R) 00 :00 ONCE, 1 Medic al injection 8 dose, On Bran ch Units Sat12/15/21 at 0315, Routine NaCl 0.9% No 1000mL at 999 Uni vers (NS) bolus 12-15 mL/hr, ity of infusion 07:15: 06:12 1,000 mL, Tim as 1,000 mL 00 :00 IV Medical Infusion, Branch ONCE, 1 dose, On Sat12/15/21 at 0215, STAT insulin No 8U 8 Units, Unive rs regular 12-15 Slow IV ity of human 07:15: 06:21 Push, [place] (HUMULIN R) 00 :00 ONCE, 1 Medic al injection 8 dose, On Bran ch Units Sat12/15/21 at 0215, STAT iopamidol No [id number] 100mL 100 mL, Univers (ISOVUE 12-15 Intravenou ity o f 370-500 mL) 05:45: 04:31 s, ONCE, 1 [place] injection 00 :00 dose, On Medica l 100 mL Sat12/15/21 Branch at 0045, Routine meropenem No 500mg 500 mg, IV Univers (MERREM) 12-15 Piggyback, ity of 500 mg in 05:00: 05:32 ONCE, 1 [place] NaCl 0.9% 00 :00 dose, On Medica l (NS) 50 mL Sat12/15/21 Bra [facility] MINI-BAG at 0000, Administer over 30 Minutes, 50 mL
R estricted use approved by: EMERGENCY DEPARTMENT PRESCRIBER
Reason for Anti-Infec tive: Empiric Therapy for Suspected Infection< br>Empiric Therapy Site: Abdominal< br>Duratio n of therapy: 72 hours proMETHazin 2021- No 25mg 25 mg, IV Univers e 12-15 Piggyback, ity of (PHENERGAN) 04:45: 03:49 ONCE, 1 [place] 25 mg in 00 :00 dose, On Medical NaCl 0.9% Libra 12/14/21 Bran ch (NS) 50 mL at 2345, IV SAHARA piggyback NaCl 0.9% 2021- No 1000mL at 999 Uni vers (NS) bolus 12-15-03 mL/hr, ity of infusion 04:30: 06:04 1,000 mL, Tim as 1,000 mL 00 :00 IV Medical Infusion, Branch ONCE, 1 dose, On Libra 12/14/21 at 2330, STAT FENTanyl PF 2021- No 100ug 100 mcg, Univers (SUBLIMAZE 12-15 Slow IV ity o f (PF)) 03:30: 03:24 Push, [place] injection 00 :00 ONCE, 1 Medical 100 mcg dose, On Branch [facility] 12/14/21 at 2230, STAT cefTRIAXone Yes 2000mg 2,000 mg, Univers (ROCEPHIN) 5-17 Intramuscu ity of injection 21:00: lar, Q24H, [place] 2,000 mg 00 First dose Medic al on Sat [place] 11/28/21 at 1600, Until Discontinu ed, SAHARA
Re ason for Anti-Infec tive: Documented Infection< br>Documen lester Infection Site: Skin / Soft Tissue
Duration of Therapy: Other (see Comments) hydromorpho Yes 4ug Take 4 mcg Univers ne HCl 5-17 by mouth ity of (HYDROMORPH 17:43: every 12 [place] ONE ORAL) 55 (twelve) Medica l hours. [place] hydromorpho Yes 4ug Take 4 mcg Univers ne HCl 5-17 by mouth ity of (HYDROMORPH 17:43: every 12 [place] ONE ORAL) 55 (twelve) Medica l hours. [place] collagenase Yes [id number] Apply to Univers 250 5-17 affected ity of unit/gram 00:00: area(s) [place] ointment 00 daily. [facility] collagenase Yes [id number] Apply to Univers 250 5-17 affected ity of unit/gram 00:00: area(s) [place] ointment 00 daily. [facility] collagenase Yes [id number] Apply to Univers 250 5-17 affected ity of unit/gram 00:00: area(s) [place] ointment 00 daily. [facility] collagenase Yes [id number] Apply to Univers 250 5-17 affected ity of unit/gram 00:00: area(s) [place] ointment 00 daily. Medical Branch collagenase Yes [id number] Apply to Univers 250 5-17 affected ity of unit/gram 00:00: area(s) [place] ointment 00 daily. Medical Branch docusate 2021- Yes [id number] 100mg Take 1 U nivers 100 mg 5-17 06-17 capsule by ity of capsule 00:00: 04:59 mouth 2 [place] 00 :00 (two) Medical times Branch daily for 30 days. lactobacill 2021- Yes [id number] .5mg Take 1 Univers us 5-17 06-17 tablet by ity of acidophilus 00:00: 04:59 mouth 2 [place] 00 :00 (two) Medical times Branch daily for 30 days. sennosides 2021- Yes [id number] 8.6mg Take 1 Univers 8.6 mg 5-17 06-17 tablet by ity of tablet 00:00: 04:59 mouth 2 [place] 00 :00 (two) Medical times Branch daily for 30 days. tamsulosin 2021- Yes [id number] .4mg Take 1 Univers 0.4 mg 24 5-17 06-17 capsule by ity of hr capsule 00:00: 04:59 mouth [place] 00 :00 daily for Medical 30 days. Branch docusate 2021- Yes [id number] 100mg Take 1 U nivers 100 mg 5-17 06-17 capsule by ity of capsule 00:00: 04:59 mouth 2 [place] 00 :00 (two) Medical times Branch daily for 30 days. lactobacill 2021- Yes [id number] .5mg Take 1 [facility] us 5-17 06-17 tablet by ity of acidophilus 00:00: 04:59 mouth 2 [place] 00 :00 (two) Medical times Branch daily for 30 days. sennosides 2021- Yes [id number] 8.6mg Take 1 [facility] 8.6 mg 5-17 06-17 tablet by ity of tablet 00:00: 04:59 mouth 2 [place] 00 :00 (two) Medical times Branch daily for 30 days. tamsulosin 2021- Yes [id number] .4mg Take 1 Univers 0.4 mg 24 5-17 06-17 capsule by ity of hr capsule 00:00: 04:59 mouth [place] 00 :00 daily for Medical 30 days. Branch docusate 2021- Yes [id number] 100mg Take 1 U nivers 100 mg 5-17 06-17 capsule by ity of capsule 00:00: 04:59 mouth 2 [place] 00 :00 (two) Medical times Branch daily for 30 days. lactobacill 2021- Yes [id number] .5mg Take 1 [facility] us 5-17 06-17 tablet by ity of acidophilus 00:00: 04:59 mouth 2 [place] 00 :00 (two) Medical times Branch daily for 30 days. sennosides 2021- Yes [id number] 8.6mg Take 1 [facility] 8.6 mg 5-17 06-17 tablet by ity of tablet 00:00: 04:59 mouth 2 [place] 00 :00 (two) Medical times Branch daily for 30 days. tamsulosin 2021- Yes [id number] .4mg Take 1 [facility] 0.4 mg 24 5-17 06-17 capsule by ity of hr capsule 00:00: 04:59 mouth [place] 00 :00 daily for Medical 30 days. Branch docusate 2021- Yes [id number] 100mg Take 1 U nivers 100 mg 5-17 06-17 capsule by ity of capsule 00:00: 04:59 mouth 2 [place] 00 :00 (two) Medical times Branch daily for 30 days. lactobacill 2021- Yes [id number] .5mg Take 1 Univers us 5-17 06-17 tablet by ity of acidophilus 00:00: 04:59 mouth 2 [place] 00 :00 (two) Medical times Branch daily for 30 days. sennosides 2021- Yes [id number] 8.6mg Take 1 Univers 8.6 mg 5-17 06-17 tablet by ity of tablet 00:00: 04:59 mouth 2 [place] 00 :00 (two) Medical times Branch daily for 30 days. tamsulosin 2021- Yes [id number] .4mg Take 1 Univers 0.4 mg 24 5-17 06-17 capsule by ity of hr capsule 00:00: 04:59 mouth [place] 00 :00 daily for Medical 30 days. Branch docusate 2021- Yes [id number] 100mg Take 1 U nivers 100 mg 5-17 06-17 capsule by ity of capsule 00:00: 04:59 mouth 2 [place] 00 :00 (two) Medical times Branch daily for 30 days. lactobacill 2021- Yes [id number] .5mg Take 1 Univers us 5-17 06-17 tablet by ity of acidophilus 00:00: 04:59 mouth 2 [place] 00 :00 (two) Medical times Branch daily for 30 days. sennosides 2021- Yes [id number] 8.6mg Take 1 Univers 8.6 mg 5-17 06-17 tablet by ity of tablet 00:00: 04:59 mouth 2 [place] 00 :00 (two) Medical times Branch daily for 30 days. tamsulosin 2021- Yes [id number] .4mg Take 1 Univers 0.4 mg 24 5-17 06-17 capsule by ity of hr capsule 00:00: 04:59 mouth [place] 00 :00 daily for Medical 30 days. Branch metroNIDAZO 2021- Yes [id number] 500mg Take 1 Univers LE 500 mg 5-17 05-21 tablet by ity of tablet 00:00: 04:59 mouth [place] 00 :00 every 12 Medical (twelve) Branch hours for 3 days. metroNIDAZO 2021- Yes [id number] 500mg Take 1 Univers LE 500 mg 5-17 05-21 tablet by ity of tablet 00:00: 04:59 mouth [place] 00 :00 every 12 Medical (twelve) Branch hours for 3 days. metroNIDAZO 2021- Yes 500mg 500 mg, U nivers LE (FLAGYL) 5-15 05-20 Oral, Q12H i ty of tablet 500 22:00: 21:59 ABX, 10 [place] mg 00 :00 doses, Medical First dose Branch on Sat11/26/21 at 1700, Last dose on Sat12/01/21 at 0500, Routine
Reason for Anti-Infec tive: Documented Infection< br>Documen lester Infection Site: Skin / Soft Tissue
Duration of Therapy: Other (see Comments) cefTRIAXone 2021- No 2g 2 g, IV Un ela (ROCEPHIN) 11-26 Piggyback, it y of 2 g in NaCl 20:00: 20:03 Q24H ABX, [place] 0.9% (NS) 00 :21 3 doses, Medica l 100 mL First dose Branch MINI-BAG on Sat11/26/21 at 1500, Last dose on Sat11/28/21 at 1500, Administer over 30 Minutes, 100 mL
Reas on for Anti-Infec tive: Documented Infection< br>Documen lester Infection Site: Skin / Soft Tissue
Duration of Therapy: Other (see Comments) enoxaparin Yes 30mg 30 mg, Unive rs (LOVENOX) 11-23 Subcutaneo ity of injection 01:00: us, Q12H, [place] 30 mg 00 First dose Medical on Sat Branch 11/22/21 at 2000, Until Discontinu ed, Routine proMETHazin Yes 25mg 25 mg, IV U nivers e 11-22 Piggyback, ity of (PHENERGAN) 22:58: Q4HPRN, [place] 25 mg in 13 Starting Medical NaCl 0.9% on Sat Branch (NS) 50 mL 11/22/21 at IV 1758, piggyback Until Discontinu ed, Routine, Nausea and Vomiting (N/V) collagenase Yes Topical Uni vers (SANTYL) 11-22 (Apply To ity of ointment 22:15: Affected [place] 00 Areas), Medical DAILY, Branch First dose on Sat11/22/21 at 1715, Until Discontinu ed, Routine HYDROmorpho 2021- No 1mg 1 mg, Slow Univers ne 11-22 IV Push, ity of (DILAUDID) 21:45: 21:25 ONCE, 1 [place] injection 1 00 :00 dose, On Medi efrain mg Sat Branch 11/22/21 at 1645, Routine
Use approved by (Faculty): ADC PROVIDER magnesium 2021- No 2g 2 g, IV Univ ers sulfate in 11-22 Piggyback, it y of water 2 15:15: 16:11 Administer Tim as gram/50 mL 00 :00 over 60 Medica l (4 %) Minutes, Branch infusion 2 ONCE, 1 g dose, On Sat11/22/21 at 1015, Routine lactulose 0 Yes 15mL 15 mL, Univer s (CEPHULAC) 11-22 Oral, ity of solution 15 14:00: DAILY, [place] mL 00 First dose Medical on Sat Branch 11/22/21 at 0900, Until Discontinu ed, Routine vancomycin 0 2021- No 125mg 125 mg, Un ela (FIRVANQ) 11-2216 Oral, ity of 50 mg/mL 14:00: 16:27 Q24H, [place] oral 00 :02 First dose Medical solution on Sat Branch 125 mg 11/22/21 at 0900, Until Discontinu ed, Routine
Reason for Anti-Infec tive: Empiric Non-Surgic al Prophylaxi s
Durat ion of therapy: 7 days sennosides Yes 8.6mg 8.6 mg, Uni vers (SENOKOT) 11-22 Oral, BID, ity of tablet 8.6 13:00: First dose [place] mg 00 on Sat Medical 11/22/21 at Branch 0800, Until Discontinu ed, Routine docusate 0 Yes 100mg 100 mg, Unive rs (COLACE) 11-22 Oral, BID, ity o f capsule 100 13:00: First dose [place] mg 00 on Sat Medical 11/22/21 at Branch 0800, Until Discontinu ed, Routine HYDROmorpho 0 Yes 2mg 2 mg, Unive rs ne 11-22 Oral, TID, ity of (DILAUDID) 13:00: First dose [place] tablet 2 mg 00 on Sat Medica l 11/22/21 at Branch 0800, Until Discontinu ed lactobacill 0 Yes .5mg 0.5 mg, Uni vers us 11-22 Oral, BID, ity of acidophilus 13:00: First dose [place] tablet 0.5 00 on Sat Medical mg 11/22/21 at Branch 0800, Until Discontinu ed, Routine ceFEPIme 0 2021- No 2g 2 g, IV Unive rs (MAXIPIME) 11-22-15 Piggyback, it y of 2 g in NaCl 11:00: 19:23 Q8H ABX, [place] 0.9% (NS) 00 :40 First dose Medi efrain 100 mL on Sat MINI-BAG 11/22/21 at 0600, Until Discontinu ed, Administer over 30 Minutes, 100 mL
Reas on for Anti-Infec tive: Empiric Therapy for Suspected Infection< br>Empi colt Therapy Site: Bone
Du ration of therapy: 72 hours NaCl 0.9% 2021- No 1000mL at 50 [facility] ers (NS) IV 11-22 05-16 mL/hr, IV ity of infusion 10:00: 16:41 Infusion, Tim as 1,000 mL 00 :28 CONTINUOUS Medic al , Starting Branch on Sat11/22/21 at 0500, Until Sat11/27/21 at 1141, Routine doxycycline No 100mg 100 mg, IV Univers (VIBRAMYCIN 11-2214 Piggyback, i ty of ) 100 mg in 09:15: 23:11 Q12H ABX, [place] NaCl 0.9% 00 :48 First dose Medi efrain (NS) 100 mL on Sat MINI-BAG 11/22/21 at 0415, Until Discontinu ed, Administer over 60 Minutes, 100 mL
Reas on for Anti-Infec tive: Empiric Therapy for Suspected Infection< br>Empiric Therapy Site: Wound
D uration of therapy: 7 days tamsulosin Yes .4mg 0.4 mg, Univ ers (FLOMAX) 11-22 Oral, ity of capsule 0.4 08:30: DAILY, [place] mg 00 First dose Medical on Sat Branch 11/22/21 at 0330, Until Discontinu ed, Routine HYDROmorpho Yes 1mg 1 mg, Slow Univers ne 11-22 IV Push, ity of (DILAUDID) 06:04: Q4HPRN, [place] injection 1 07 Starting Medi efrain mg on Sat Branch 11/22/21 at 0104, Until Discontinu ed, Routine, Pain (scale 7-10)
U se approved by (Faculty): ADC PROVIDER FENTanyl PF 2021- No 50ug 50 mcg, Un ela (SUBLIMAZE 11-22 Slow IV ity o f (PF)) 05:30: 05:01 Push, [place] injection 00 :00 ONCE, 1 Medical 50 mcg dose, On Branch Sat11/22/21 at 0030, STAT iopamidol 2021- No [id number] 150mL 150 mL, Univers (ISOVUE 11-22 Intravenou ity o f 370-500 mL) 04:45: 03:34 s, ONCE, 1 [place] injection 00 :00 dose, On Medica l 150 mL e 11/21/21 at 2345, Routine ceFEPIme 2021- No 2000mg 2,000 mg, U nivers (MAXIPIME) 11-22 IV ity of injection 04:15: 04:15 Piggyback, [place] 2,000 mg 00 :00 ONCE, 1 Medical dose, On Branch 11/21/21 at 2315, STAT
Re ason for Anti-Infec tive: Empiric Therapy for Suspected Infection< br>Empiric Therapy Site: Bone
Du ration of therapy: 72 hours FENTanyl PF 2021- No 75ug 75 mcg, Un ela (SUBLIMAZE 11-22 Slow IV ity o f (PF)) 03:45: 02:47 Push, [place] injection 00 :00 ONCE, 1 Medical 75 mcg dose, On Branch [facility] 11/21/21 at 2245, STAT OXYCODONE 2021- No Take by Uni vers HCL/ACETAMI 11-22 mouth. ity o f NOPHEN 03:22: 00:00 [place] (PERCOCET 50 :00 Medical ORAL) [place] FENTanyl PF 2021- No 100ug 100 mcg, Univers (SUBLIMAZE 11-22 Slow IV ity o f (PF)) 01:30: 01:12 Push, [place] injection 00 :00 ONCE, 1 Medical 100 mcg dose, On Branch 11/21/21 at 2030, STAT NaCl 0.9% 2021- No 1000mL at 999 Uni vers (NS) bolus 4-04 04-04 mL/hr, ity of infusion 05:00: 05:59 1,000 mL, Tim [place] 1,000 mL 00 :00 IV Medical Piggyback, Branch ONCE, 1 dose, On 10/16/21 at 0000, STAT diphenhydrA 2021- No 25mg 25 mg, Uni vers MINE 10-16 Slow IV ity of (BENADRYL) 05:00: 04:47 Push, [place] injection 00 :00 ONCE, 1 Medical 25 mg dose, On Branch [facility] 10/16/21 at 0000, STAT haloperidol 2021- No 2.5mg 2.5 mg, U nivers lactate 10-16 Intravenou ity o f (HALDOL) 05:00: 04:47 s, ONCE, 1 [place] injection 00 :00 dose, On Medica l 2.5 mg Sat10/16/21 Branch at 0000, STAT butalbital- 2021- No 2{tbl} 2 tablet, Univers acetaminoph 09-29 Oral, ity of en-caff 03:45: 03:10 ONCE, 1 [place] (ESGIC) 00 :00 dose, On Medical 50-325-40 [...] On Libra 09/28/21 at 2115, Routine HYDROmorpho No .5mg 0.5 mg, Un ela ne 08-09 Slow IV ity of (DILAUDID) 01:30: 01:25 Push, [place] injection 00 :00 ONCE, 1 Medical 0.5 mg dose, On Branch Sat08/08/21 at 1930, Routine
Use approved by (Faculty): ADC PROVIDER levoFLOXaci 2021- No [id number] 750mg Take 1 Univers n 750 mg 08-09 tablet by ity o f tablet 00:00: 05:59 mouth [place] 00 :00 daily for Medical 4 days. [place] levoFLOXaci 2021- No [id number] 750mg Take 1 Univers n 750 mg 08-09 tablet by ity o f tablet 00:00: 05:59 mouth [place] 00 :00 daily for Medical 4 days. [place] OXYCODONE Yes Take by [facility] ers HCL/ACETAMI -25 mouth. ity of NOPHEN 19:49: [place] (PERCOCET 27 Medical ORAL) [place] OXYCODONE Yes Take by [facility] ers HCL/ACETAMI 1-25 mouth. ity of NOPHEN 19:49: [place] (PERCOCET 27 Medical ORAL) [place] OXYCODONE Yes Take by [facility] ers HCL/ACETAMI 1-25 mouth. ity of NOPHEN 19:49: [place] (PERCOCET 27 Medical ORAL) [place] OXYCODONE Yes Take by [facility] ers HCL/ACETAMI 1-25 mouth. ity of NOPHEN 19:49: [place] (PERCOCET 27 Medical ORAL) [place] vancomycin 2021- No 125mg 125 mg, Un ela (VANCOCIN) 08-08 [...] uration of therapy: 72 hours lactobacill 2021- No [id number] .5mg Take 1 Univers us 08-08 tablet by ity of acidophilus 00:00: 05:59 mouth 2 [place] 00 :00 (two) Medical times Branch daily for 30 days. lactobacill 2021- No [id number] .5mg Take 1 Univers us 08-08 tablet by ity of acidophilus 00:00: 05:59 mouth 2 [place] 00 :00 (two) Medical times Branch daily for 30 days. vancomycin 2021- No [id number] 125mg Take 1 Univers 125 mg 08-08 capsule by ity of capsule 00:00: 05:59 mouth 4 [place] 00 :00 (four) Medical times Branch daily for 5 days. vancomycin 2021- No [id number] 125mg Take 1 Univers 125 mg 08-08 capsule by ity of capsule 00:00: 05:59 mouth 4 [place] 00 :00 (four) Medical times Branch daily for 5 days. traMADoL Yes 50mg 50 mg, Univers (ULTRAM) -24 Oral, ity of tablet 50 21:26: Q6HPRN, [place] mg 10 Starting Medical on Sat08/07/21 at 1526, Until Discontinu ed, Routine, Pain (scale 4-6) levoFLOXaci 2021- No 250mg 250 mg, U nivers n -07 08-24 Oral, Q24H ity of (LEVAQUIN) 19:30: 23:18 [...] 08-06 Oral, ity of n 20:39: Q6HPRN, [place] (PERCOCET) 03 Starting Medic al 5-325 mg on [place] Branch per tablet 08/06/21 at 2 tablet [...] of 1,000 mg in 15:45: 18:30 Piggyback, [place] NaCl 0.9% 00 :00 Q24H ABX, Medic al (NS) 50 mL First dose [facility] MINI-BAG on 08/05/21 at 0945, Until Discontinu [...] 08/04/21 at 2000, Until Discontinu ed, SAHARA
membership director approving Non-formul shanelle medication : MEGADC
Reason [...] Branch on Libra 08/03/21 at 0829, Until [place] 08/06/21 at 1441, Routine, Pain (scale 7-10)
[...] ADC PROVIDER proCHLORper Yes 10mg 10 mg, [facility] ers azine 08-03 Slow IV ity of (COMPAZINE) 09:07: Push, [place] injection 27 Q6HPRN, Medical 10 mg Starting Branch on Libra 08/03/21 at 0307, Until Discontinu ed, Routine, Nausea and Vomiting (N/V) acetaminoph Yes 650mg 650 mg, Un ela en 08-03 Oral, ity of (TYLENOL) 09:07: Q6HPRN, [place] tablet 650 10 Starting Medic al mg [...] at piggyback 1915, 50 mL cefdinir 2021- No [id number] 300mg Take 1 U nivers 300 mg 07-31 capsule by ity of capsule 00:00: 05:59 mouth [place] 00 :00 every 12 Medical (twelve) Branch hours for 10 days. cefdinir 2021-0 2021- No [id number] 300mg Take 1 U nivers 300 mg [...] Branch 07/29/21 at 1645, Routine methocarbam Yes [id number] 1000mg Take 2 Univers oL 500 mg 1-15 tablets by ity of tablet 00:00: mouth (four) Medical times Branch daily as needed for Pain (scale 1-3). methocarbam 2021-0 Yes [id number] 1000mg Take 2 Univers oL 500 mg 1-15 tablets by ity of tablet 00:00: mouth (four) Medical times Branch daily as needed for Pain (scale 1-3). methocarbam 2021-0 Yes [id number] 1000mg Take 2 Univers oL 500 mg 1-15 tablets by ity of tablet 00:00: mouth (four) Medical times Branch daily as needed for Pain (scale 1-3). methocarbam 2021-0 Yes [id number] 1000mg Take 2 Univers oL 500 mg 1-15 tablets by ity of tablet 00:00: mouth 4 (four) Medical times Branch daily as needed for Pain (scale 1-3). methocarbam 2021-0 Yes [id number] 1000mg Take 2 Univers oL 500 mg 1-15 tablets by ity of tablet 00:00: mouth 4 (four) Medical times Branch daily as needed for Pain (scale 1-3). methocarbam 2021-0 Yes [id number] 1000mg Take 2 Univers oL 500 mg 1-15 tablets by ity of tablet 00:00: mouth 4 [place] 00 (four) Medical times Branch daily as needed for Pain (scale 1-3). methocarbam 2021- No [id number] 1000mg Take 2 Univers oL 500 mg 1-15 05-11 tablets by ity of tablet 00:00: 00:00 mouth 4 [place] 00 :00 (four) Medical times Branch daily as needed for Pain (scale 1-3). proMETHazin 2020-07- No 25mg 25 mg, IV Univers e [...] 06/07/21 at 1615, Routine fidaxomicin 2020-07 Yes [id number] 200mg Take 1 Univers 200 mg 1-24 tablet by ity of tablet 00:00: mouth 2 [place] (two) Medical times Branch daily. proMETHazin 2020-07 Yes [id number] 25mg Take 1 Univers e 25 mg 1-24 tablet by ity of tablet 00:00: mouth [place] 00 every 6 Medical (six) Branch hours as needed for Nausea and Vomiting (N/V). fidaxomicin 2020-07 Yes [id number] 200mg Take 1 Univers 200 mg 1-24 tablet by ity of tablet 00:00: mouth 2 [place] 00 (two) Medical times Branch daily. proMETHazin 2020-07 Yes [id number] 25mg Take 1 Univers e 25 mg 1-24 tablet by ity of tablet 00:00: mouth [place] 00 every 6 Medical (six) Branch hours as needed for Nausea and Vomiting (N/V). cholestyram 2020-07 Yes Univer s ine 4 gram 1-24 ity of packet 00:00: [place] [address] Medical Branch fidaxomicin 2021-1 Yes [id number] 200mg Take 1 Univers 200 mg 1-24 tablet by ity of tablet 00:00: mouth 2 [place] 00 (two) Medical times Branch daily. proMETHazin 2020-07 Yes [id number] 25mg Take 1 Univers e 25 mg 1-24 tablet by ity of tablet 00:00: mouth [place] 00 every 6 Medical (six) Branch hours as needed for Nausea and Vomiting (N/V). cholestyram 2020-07 Yes Univer s ine 4 gram 1-24 ity of packet 00:00: [place] Medical Branch cholestyram 2020-07 Yes Univer s ine 4 gram 1-24 ity of packet 00:00: Medical Branch cholestyram 2020-07 Yes Univer s ine 4 gram 1-24 ity of packet 00:00: [place] Medical Branch cholestyram 2020-07 Yes Univer s ine 4 gram 1-24 ity of packet 00:00: [place] 00 Medical Branch cholestyram 2020-07 Yes Univer s ine 4 gram 1-24 ity of packet 00:00: [place] 00 Medical Branch fidaxomicin 2020-07 Yes [id number] 200mg Take 1 Univers 200 mg 1-24 tablet by ity of tablet 00:00: mouth 2 [place] 00 (two) Medical times Branch daily. proMETHazin 2020-07 Yes [id number] 25mg Take 1 Univers e 25 mg 1-24 tablet by ity of tablet 00:00: mouth [place] 00 every 6 Medical (six) Branch hours as needed for Nausea and Vomiting (N/V). cholestyram 2020-07- No Unive rs ine 4 gram 1-24 05-11 ity of packet 00:00: 00:00 [place] 00 :00 Medical Branch fidaxomicin 2020-07- No [id number] 200mg Take 1 Univers 200 mg 1-24 01-25 tablet by ity of tablet 00:00: 00:00 mouth 2 [place] 00 :00 (two) Medical times Branch daily. proMETHazin 2020-07- No [id number] 25mg Take 1 Univers e 25 mg [...] of 1,000 mg in 02:30: 01:55 Piggyback, [place] NaCl 0.9% 00 :00 ONCE, 1 Medical (NS) 50 mL dose, [facility] ch MINI-BAG 11/20/20 at 2130, 50 mL
Reas on for Anti-Infec tive: Documented Infection< br>Documen lester Infection Site: Urine
D uration of Therapy: 7 days famotidine 2020- No 20mg 20 mg, Univ ers (PEPCID 5-10 05-10 Slow IV ity of (PF)) 01:00: 00:12 Push, [place] injection 00 :00 ONCE, 1 Medical [facility] mg dose, [facility] 11/20/20 at 2000, [place]HARA proMETHazin 2020- No 25mg 25 mg, IV Univers e 5-10 05-10 Piggyback, ity of (PHENERGAN) 00:45: 00:11 ONCE, 1 [place] 25 mg in 00 :00 dose, [place] [facility] NaCl 0.9% 11/20/20 at [facility] h (NS) 50 mL 1945, [...] 1,000 mL 00 :00 IV Medical Infusion, [place] ONCE, 1 dose, [place] 11/20/20 at 1900, SAHARA cefdinir 2020- No [id number] 300mg Take 1 U nivers 300 mg 11-20 05-20 capsule by ity of capsule 00:00: 04:59 mouth 2 [place] 00 :00 (two) Medical times Branch daily for 10 days. buPROPion 2020- No 150mg QD Take [address] [facility] (WELLBUTRIN 1-17 01-16 tablet [facility] XL) 150 MG 00:00: 23:59 (150 mg Med ical 24 hr 00 :00 total) by Center tablet mouth daily. citalopram 2020- No 40mg QD Take [address] [facility] (CELEXA) 40 1-17 -16 tablet (40 L ukes MG tablet 00:00: 23:59 mg total) Me dical 00 :00 by mouth Center daily. oxyCODONE-a Yes 1{tbl} Take [address] cetaminophe 1-16 tablet by Charly es n 14:44: mouth Medical (PERCOCET) 50 every 4 Center 10-325 mg (four) per tablet hours as needed for Pain. zinc Yes 5g Q.5D Apply [address] [facility] oxide-birdie 1-16 topically Charly es latum 00:00: 2 (two) Medical (CRITIC-AID 00 times Center ) 20-51 % daily. Pste topical paste meropenem Yes 1g Inject [address] (MERREM) 1-16 intravenou [facility] MBP 1 gm in 00:00: sly every M edical 100 mL NS 00 8 (eight) Cente r hours. insulin Yes 58U Q.5D Inject 58 [facility] glargine 1-16 Units [facility] (LANTUS) 00:00: subcutaneo Med ical 100 unit/mL 00 usly 2 Center injection (two) times daily Use as directed. insulin 2020- No 0U Inject [facility] lispro 1-16 01-15 0-12 [facility] (HUMALOG) 00:00: 23:59 subcutaneo M edical 100 unit/mL 00 :00 usly 3 Center injection (three) times daily before meals. insulin 2020- No 25U Inject [address] [facility] [address] lispro 1-16 01-15 Units [facility] (HUMALOG) 00:00: 23:59 subcutaneo M edical 100 unit/mL 00 :00 usly 3 Center injection (three) times daily before meals. normal 2017-07 No 1,000 mL, Memori a saline 0.9% 07-22 Rate: 100 l IV 1,000 mL 11:04: ml/hr, Herm Infuse over: 10 hr, Route: IV, Dosing Weight 131.818 kg, Total Volume: 1,000, Start date: 05/22/18 5:04:00 SR. CONSULTANT, Duration: 30 day, Stop date: 06/21/18 5:03:00 SR. CONSULTANT, 2.4, m2 Magnesium 2017-07 No Notes: Memori a Sulfate 07-22 WASTE: F/P l 10:36: - Sink; E Jason 00 - Municipal Trash Bin Isolyte S 2017-07 No Notes: Memori a PH-7.4 07-22 (Same as: l (Bolus) IV 10:36: Isolyte S He rm PH 7.4) Phenergan 2017-07 No 12.5 mg, Erwin benjamin 08 0.5 mL, l 10:35: Route: IVPB, Drug form: INJ, ONCE, Dosing Weight 131.818, kg, Priority: STAT, Start date: 05/22/18 4:35:00 SR. CONSULTANT, Stop date: 05/22/18 4:35:00 SR. CONSULTANT Citalopram Citalopram Yes Na Gamble 1 tablet Common Hydrobromid Hydrobromid 7-16 S pirit e e 00:00: - [facility] Seroquel Seroquel Yes Na Gamble 1 tablet Common 7-16 Spirit 00:00: - [facility] Docusate Yes 100 mg = 1 Mem oria Sodium 100 5-08 cap, PO, l MG Oral 14:56: BID, 0 Capsule 00 Refill(s) Zosyn Yes 0 Memoria 5-08 Refill(s) l 14:56: [place] 00 celecoxib Yes 200 mg = 1 Me moria 200 mg oral 5-08 cap, PO, l capsule 14:56: BID, 0 [place] 00 Refill(s) ascorbic Yes 500 mg = 1 Mem oria acid 5-08 tab, PO, l 14:56: BID, 0 [place] 00 Refill(s) acetaminoph Yes 1,000 mg = [...] n 5-08 Daily, 0 l 14:56: Refill(s) [place] methocarbam Yes 1,000 mg = Memoria ol 500 mg -08 2 tab, PO, l oral tablet 14:56: Q8H, 0 Herm carly 00 Refill(s) LORazepam Yes 0.5 mg = 1 Me moria 0.5 mg oral 5-08 tab, PO, l tablet 14:56: Q8H, PRN [place] 00 Anxiety, 0 Refill(s) Lidocaine Yes 3 patch, Erwin benjamin Hydrochlori 5-08 TOP, l de 0.05 14:56: Daily, [place] MG/MG 00 Remove Transdermal after 12 Patch hours, 0 [Lidoderm] Refill(s) Robaxin No Notes: Memoria 5-06 (Same l 21:00: as:Robaxin [place] ) Oxycodone No Notes: Memori a Hydrochlori 5-06 (Same as: l de 5 MG 18:06: Roxicodone Herm carly Oral Tablet ) Ativan No Notes: Memoria 5-06 (Same as: l 15:18: Ativan) [place] 00 Trazodone No Notes: Memori a Hydrochlori [...] Notes: Memoria 5-05 NSAID. l 22:00: Please [place] 00 check indication . Not for seizure. [...] 5-04 not give l 22:40: IV push. [place] (Same as: Phenergan) Dilaudid No Notes: Memoria 5-04 Same as l 22:40: Dilaudid [place] 00 Tramadol No Notes: Not Mem oria 5-04 to exceed l 22:00: 400mg/day. [place] 00 (Same As: Ultram) gabapentin No Notes: Memor ia -04 (Same as: l 22:00: Neurontin) [place] 00 Acetaminoph No Notes: Max Memoria en -04 acetaminop l 22:00: hen 4000 [place] 00 mg/day (4 gm/day). (Same as: Tylenol Extra Strength) Robaxin No Notes: Memoria 5-04 (Same l 22:00: as:Robaxin [place] 00 ) Oxycodone No Notes: Memori a Hydrochlori 5-04 (Same as: l de 5 MG 21:33: Roxicodone Herm carly Oral Tablet 00 ) Beneprotein No Notes: Erwin benjamin 7 gm pkt -04 (Same as: l 21:30: Beneprotei [place] 00 n) Acetaminoph No 1 tab, PO, Memoria en 325 MG / 5-04 TID, 0 l Oxycodone 17:12: Refill(s) Her jovany Hydrochlori 00 de 10 MG Oral Tablet [Percocet 10/325] Dilaudid No 0.5 mg, Memori a 5-04 0.25 mL, l 16:01: Route: [place] 00 IVP, Drug form: INJ, ONCE, Start [...] -04 (Same as: l 07:00: Lovenox) Jason Sodium No 1,000 mL, Memori a Chloride 11-15 Rate: 125 l 0.9% IV 06:46: ml/hr, Jason 1,000 mL 00 Infuse over: 8 hr, Route: IV, Dosing Weight 127.27 kg, Total Volume: 1,000, Start date: 11/15/17 1:46:00 CDT, Duration: 30 day, Stop date: 12/15/17 1:45:00 CDT, 2.44, m2 Saline No Notes: Memoria Flush 0.9% 11-15 (Same as: l 06:46: BD [place] Posiflush) Acetaminoph No Notes: Do M emoria en -04 not exceed l 06:46: 4 gm/day. Jason (Same as: Tylenol) Acetaminoph No Notes: Erwin benjamin en 325 MG / 5- (Same as: l Hydrocodone 06:46: [place] Kristen nn Bitartrate 00 325/5) Do 5 MG Oral not exceed Tablet 4gm/day of acetaminop hen. Reglan No Notes: Memoria 5-04 (Same as: l 04:27: Reglan) Jason Benadryl No Notes: Memoria 5-04 (Same as: l 04:27: Benadryl) [place] Magnesium No Notes: Memori a Sulfate 11-15 WASTE: F/P l 04:26: - Sink; E [place] 00 - Municipal Trash Bin Sodium No 1,000 mL, Memori a Chloride -04 1000 l 0.9% 04:26: ml/hr, [place] (Bolus) IV 00 Infuse Over: 1 hr, Route: IV, 1,000, Drug form: INJ, ONCE, Priority: STAT, Dosing Weight 127.273 kg, Start date: 11/14/17 23:26:00 CDT, Stop date: 11/14/17 23:26:00 CDT Zosyn No 4.5 gm, Memoria 11-15 Route: l 04:10: IVPB, [place] ONCE, Dosing Weight 127.273, kg, Priority: STAT, Start date: 11/14/17 23:10:00 CDT, Stop date: 11/14/17 23:10:00 CDT, ABX Indication : Bacteremia Vancomycin No 2001 mg: Me moria 11-15 infuse [...] Memoria - (Same as: l 23:14: Benadryl) [place] Benadryl No Notes: Memoria 5-03 (Same as: l 22:56: Benadryl) Jason 00 Morphine 2018-0 No 4 mg, 1 Memori a 5-03 mL, Route: l 22:56: IVP, Drug form: SOLN, ONCE, Dosing Weight 127.273, kg, Priority: STAT, Start date: 11/14/17 17:56:00 CDT, Stop date: 11/14/17 17:56:00 CDT OXYCODONE 2016-07 Yes Take by Univ ers HCL/ACETAMI 2-20 mouth. ity of NOPHEN 10:03: [place] (PERCOCET 17 Medical ORAL) [place] OXYCODONE 2016-07 Yes Take by Univ ers HCL/ACETAMI 2-20 mouth. ity of NOPHEN 04:03: [place] (PERCOCET 17 Medical ORAL) [place] OXYCODONE 2016-07 Yes Take by Univ ers HCL/ACETAMI 2-20 mouth. ity of NOPHEN 04:03: [place] (PERCOCET 17 Medical ORAL) [place] OXYCODONE 2016-07 Yes Take by Univ ers HCL/ACETAMI 2-20 mouth. ity of NOPHEN 04:03: [place] (PERCOCET 17 Medical ORAL) [place] OXYCODONE 2016-07 Yes Take by Univ ers HCL/ACETAMI 2-20 mouth. ity of NOPHEN 04:03: [place] (PERCOCET 17 Medical ORAL) [place] dicyclomine 2016-07 Yes 20mg Take 1 Univ [...] needed for Nausea and Vomiting (N/V). dicyclomine 2017-1 Yes 20mg Take 1 Univ ers (BENTYL) [...] for up to 12 doses. proMETHazin 2017-0 No 25mg Take 1 Uni vers e 25 mg 1-04 05-11 tablet by ity of tablet 00:00: 00:00 mouth [place] 00 :00 every 6 Medical (six) Branch hours as needed for Nausea and Vomiting (N/V) for up to 12 doses. Tylenol Tylenol Yes Na Gamble 1 tablet Co mmon with with as needed [facility] Codeine #4 Codeine #4 - C HI [employer] [facility] Macrobid Macrobid Yes Na Gamble 1 capsule Common with food [facility] Pantoprazol Pantoprazol Yes Na Gamble 1 tablet Common e Sodium e Sodium [facility] Collagenase Collagenase Yes Na Gamble 1 Common applicatio Spirit n to - [facility] affected [facility] Vital Signs Vital Name Observation Time Observation Value Comments Source Systolic blood 2021-12-22 17:03:00 132 mm[Hg] Univer sity of [facility] [place] [facility] Diastolic blood 2021-12-22 17:03:00 90 mm[Hg] Unive rsity of [facility] [place] [facility] Heart rate 2021-12-22 17:03:00 78 /min [facility] [place] [facility] [place] Body temperature 2021-12-22 17:03:00 35.83 Abi [facility] [place] [facility] Respiratory rate 2021-12-22 17:03:00 14 /min [facility] [place] [facility] Oxygen saturation in 2021-12-22 17:03:00 93 /min University of Arterial blood by [employer] oxim[facility] Branch Body weight 2021-12-22 09:00:00 140.933 kg [facility] [place] [facility] BMI 2021-12-22 09:00:00 62.75 kg/m2 [facility] [place] [facility] [place] Body height 2021-12-21 12:47:00 149.9 cm [facility] [place] [facility] Systolic blood 2021-12-18 20:40:00 125 mm[Hg] Univer sity of [facility] [place] [facility] Diastolic blood 2021-12-18 20:40:00 75 mm[Hg] Unive rsity of pressure [place] [facility] Heart rate 2021-12-18 20:40:00 99 /min [facility] [place] [facility] Body temperature 2021-12-18 20:40:00 36.67 Abi [facility] [place] [facility] Respiratory rate 2021-12-18 20:40:00 20 /min [facility] [place] [facility] Oxygen saturation in 2021-12-18 20:40:00 93 /min [facility] of Arterial blood by [employer] [facility] Branch Body weight 2021-12-16 22:13:00 137.485 kg [facility] [place] [facility] BMI 2021-12-16 22:13:00 61.22 kg/m2 [facility] [place] [facility] Body height 2021-12-15 09:10:00 149.9 cm [facility] [place] [facility] Systolic blood 2021-11-28 15:49:00 111 mm[Hg] Univer sity of [facility] [place] [facility] Diastolic blood 2021-11-28 15:49:00 76 mm[Hg] Unive rsity of pressure [place] [facility] Heart rate 2021-11-28 15:49:00 109 /min [facility] [place] [facility] Body temperature 2021-11-28 15:49:00 36.06 Abi [facility] [place] [facility] Respiratory rate 2021-11-28 15:49:00 18 /min Univ [facility] [place] [facility] Oxygen saturation in 2021-11-28 15:49:00 92 /min [facility] of Arterial blood by [facility] Pulse oximetry Branch Body weight 2021-11-27 10:47:00 139.481 kg [facility] [place] [facility] BMI 2021-11-27 10:47:00 62.11 kg/m2 [facility] [place] [facility] Body height 2021-11-22 06:57:00 149.9 cm [facility] [place] [facility] Systolic blood 2021-10-16 06:00:00 144 mm[Hg] Univer sity of [facility] [place] [facility] Diastolic blood 2021-10-16 06:00:00 93 mm[Hg] Unive rsity of pressure [place] [facility] Heart rate 2021-10-16 06:00:00 92 /min [facility] [place] [facility] Respiratory rate 2021-10-16 06:00:00 22 /min [facility] [place] [facility] Oxygen saturation in 2021-10-16 04:00:00 94 /min [facility] Arterial blood by [facility] Pulse oximetry Branch Body temperature 2021-10-16 03:45:00 37.06 Abi Univ [facility] [place] [facility] Body height 2021-10-16 03:45:00 149.9 cm [facility] [place] [facility] Body weight 2021-10-16 03:45:00 127.461 kg [facility] [place] [facility] BMI 2021-10-16 03:45:00 56.76 kg/m2 [facility] [place] [facility] Systolic blood 2021-09-29 03:18:00 113 mm[Hg] Univer sity of [facility] [place] [facility] Diastolic blood 2021-09-29 03:18:00 85 mm[Hg] Unive rsity of [facility] [place] [facility] Heart rate 2021-09-29 03:18:00 96 /min [facility] [place] [facility] Respiratory rate 2021-09-29 03:18:00 18 /min [facility] [place] [facility] Oxygen saturation in 2021-09-29 03:18:00 93 /min [facility] blood by [place] [facility] Body temperature 2021-09-29 01:01:16 36.89 Abi [facility] [place] [facility] Body weight 2021-09-28 23:13:00 127.461 kg [facility] [place] [facility] BMI 2021-09-28 23:13:00 56.76 kg/m2 [facility] [place] [facility] Systolic blood 2021-08-08 21:53:00 142 mm[Hg] Univer sity of [facility] [place] [facility] Diastolic blood 2021-08-08 21:53:00 88 mm[Hg] Unive rsity of pressure [place] [facility] Heart rate 2021-08-08 21:53:00 96 /min [facility] [place] [facility] Body temperature 2021-08-08 21:53:00 36.06 Abi Univ [facility] [place] [facility] Respiratory rate 2021-08-08 21:53:00 18 /min [facility] [place] [facility] Oxygen saturation in 2021-08-08 21:53:00 96 /min [facility] Ar[facility]ial blood by [place] [employer] efrain Pulse oximetry Branch Body weight 2021-08-08 09:48:00 138.801 kg [facility] [place] [facility] BMI 2021-08-08 09:48:00 61.80 kg/m2 [facility] [place] [facility] Body height 2021-08-03 10:27:00 149.9 cm [facility] [place] [facility] Systolic blood 2021-08-01 03:50:00 142 mm[Hg] Univer sity of [facility] [place] [facility] Diastolic blood 2021-08-01 03:50:00 95 mm[Hg] Unive rsity of [facility] [place] [facility] Heart rate 2021-08-01 03:50:00 93 /min [facility] [place] [facility] Respiratory rate 2021-08-01 03:50:00 17 /min [facility] [place] [facility] Oxygen saturation in 2021-08-01 03:50:00 98 /min [facility] blood by [place] [facility] Body temperature 2021-07-31 20:39:00 36.5 Abi [facility] [place] [facility] Body weight 2021-07-31 20:39:00 136.079 [...] 96 /min [facility] of Arterial blood by [employer] [facility] Branch Body temperature 2021-07-29 20:52:00 36.67 Abi [facility] [place] [facility] Body weight 2021-07-29 20:52:00 136.079 kg [facility] [place] [facility] BMI 2021-07-29 20:52:00 60.59 kg/m2 [facility] [place] [facility] Systolic blood 2021-06-07 23:30:00 175 mm[Hg] Univer sity of [facility] [place] [facility] Diastolic blood 2021-06-07 23:30:00 107 mm[Hg] Unive rsity of pressure [place] [facility] Heart rate 2021-06-07 23:30:00 81 /min [facility] [place] [facility] Respiratory rate 2021-06-07 23:30:00 21 /min [facility] [place] [facility] Oxygen saturation in 2021-06-07 23:30:00 97 /min [facility] Arterial blood by [employer] [facility] Branch Body weight 2021-06-07 21:55:00 136.079 kg [facility] [place] [facility] BMI 2021-06-07 21:55:00 60.59 kg/m2 [facility] [place] [facility] Body temperature 2021-06-07 21:55:00 37.44 Abi [facility] [place] [facility] Systolic blood 2020-11-21 01:30:00 163 mm[Hg] Univer sity of [facility] [place] [facility] Diastolic blood 2020-11-21 01:30:00 106 mm[Hg] Unive rsity of [facility] [place] [facility] Heart rate 2020-11-21 01:30:00 97 /min [facility] [place] [facility] Respiratory rate 2020-11-21 01:30:00 21 /min [facility] ersity of [place] [facility] Oxygen saturation in 2020-11-21 01:30:00 97 /min University of Arterial blood by [facility] Pulse oximetry Branch Body temperature 2020-11-20 23:27:00 36.83 Abi [facility] ersity of [place] [facility] Body height 2020-11-20 23:27:00 149.9 cm [facility] [place] [facility] Body weight 2020-11-20 23:27:00 136.079 kg [facility] [place] [facility] BMI 2020-11-20 23:27:00 60.59 kg/m2 Universi ty of [facility] Systolic blood 2020-11-21 01:30:00 163 mm[Hg] Univer sity of pressure [place] [facility] Diastolic blood 2020-11-21 01:30:00 106 mm[Hg] Unive rsity of pressure [place] [facility] Heart rate 2020-11-21 01:30:00 97 /min [facility] [place] [facility] Respiratory rate 2020-11-21 01:30:00 21 /min [facility] ersity of [place] [facility] Oxygen saturation in 2020-11-21 01:30:00 97 /min [facility] of Arterial blood by [facility] Pulse oximetry Branch Body temperature 2020-11-20 23:27:00 36.83 Abi [facility] ersity of [place] [facility] Body height 2020-11-20 23:27:00 149.9 cm [facility] [place] [facility] Body weight 2020-11-20 23:27:00 136.079 kg [facility] [place] [facility] BMI 2020-11-20 23:27:00 60.59 kg/m2 [facility] [place] [facility] Respitory Rate 2018-05-22 17:30:00 Gerri seo [place] Systolic (mm Hg) 2018-05-22 17:30:00 Erwin urena [place] Diastolic (mm Hg) 2018-05-22 17:30:00 Mem orial [place] Temperature Oral (F) 2018-05-22 17:30:00 98.4 F [facility] Jason Temperature Oral (F) 2018-05-22 16:23:00 98.6 F [facility] [place] Systolic (mm Hg) 2018-05-22 16:23:00 Erwin rial Jason Diastolic (mm Hg) 2018-05-22 16:23:00 Mem orial [place] Respitory Rate 2018-05-22 14:00:00 Memori al [place] Systolic (mm Hg) 2018-05-22 14:00:00 Erwin rial [place] Diastolic (mm Hg) 2018-05-22 14:00:00 Mem orial [place] Respitory Rate 2018-05-22 13:30:00 Memori al [place] BMI Calculated 2018-05-22 10:16:00 Memori al Jason Height 2018-05-22 10:16:00 149.86 cm [facility] [place] Weight 2018-05-22 10:16:00 [facility] [place] Heart Rate 2018-05-22 10:16:00 [facility] [place] Temperature Oral (F) 2018-05-22 10:16:00 97.9 F [facility] Jason Temperature Oral (F) 2017-11-19 13:40:00 97.2 F [facility] Systolic (mm Hg) 2017-11-19 13:40:00 Erwin rial Jason Diastolic (mm Hg) 2017-11-19 13:40:00 Mem orial Jason Heart Rate 2017-11-19 13:40:00 [facility] Jason Respitory Rate 2017-11-19 13:40:00 Memori al Jason Heart Rate 2017-11-19 05:24:00 [facility] Jason Systolic (mm Hg) 2017-11-19 05:24:00 Erwin rial Jason Diastolic (mm Hg) 2017-11-19 05:24:00 Mem orial [place] Respitory Rate 2017-11-19 05:24:00 Memori al Jason Temperature Oral (F) 2017-11-19 05:24:00 98.1 F [facility] Jason Respitory Rate 2017-11-19 01:15:00 Memori al Jason Systolic (mm Hg) 2017-11-19 01:15:00 Erwin rial Jason Diastolic (mm Hg) 2017-11-19 01:15:00 Mem orial Jason Heart Rate 2017-11-19 01:15:00 [facility] Jason Temperature Oral (F) 2017-11-19 01:15:00 98.1 F [facility] Weight 2017-11-18 14:00:00 Love Gomez Weight 2017-11-17 14:00:00 Love Gomez Weight 2017-11-15 14:00:00 Love Gomez BMI Calculated 2017-11-15 05:43:00 Gerri Malcolm Height 2017-11-15 05:43:00 162.56 cm Love Gomez Height 2017-11-14 22:41:00 149.86 cm Love Gomez BMI Calculated 2017-11-14 22:41:00 Gerri Malcolm Procedures Procedure Date / Time Performing Clinician Source Performed POCT GLUCOSE (AUTOMATED) 2021-12-22 17:03:00 May Brambila Uni versity [facility] [place] [facility] POCT GLUCOSE (AUTOMATED) 2021-12-22 12:44:00 May Brambila Uni versity [facility] [place] [facility] MAGNESIUM 2021-12-22 10:29:00 Andrés Seaman [facility] BASIC METABOLIC PANEL (NA, 2021-12-22 10:29:00 Andrés Seaman [facility] K, CL, CO2, GLUCOSE, BUN, Medica l Branch CREATININE, [place]) CBC WITH DIFF 2021-12-22 10:29:00 Andrés Seaman [facility] POCT GLUCOSE (AUTOMATED) 2021-12-22 10:28:00 EdMay saavedra [facility] vers[facility] POCT GLUCOSE (AUTOMATED) 2021-12-22 05:33:00 Edkeri Mercy Uni versity of [facility] POCT GLUCOSE (AUTOMATED) 2021-12-22 04:37:00 EdFarzad saavedray Uni versity of [facility] POCT GLUCOSE (AUTOMATED) 2021-12-22 02:29:00 Edkeri Mercy Uni versity of [facility] POCT GLUCOSE (AUTOMATED) 2021-12-22 00:52:00 Edkeri [facility] Uni versity of [facility] POCT GLUCOSE (AUTOMATED) 2021-12-21 21:52:00 Edkeri Mercy Uni versity of [facility] POCT GLUCOSE (AUTOMATED) 2021-12-21 16:42:00 May Brambila Uni versity [facility] [place] [facility] XR ABDOMEN 2 VW 2021-12-21 14:05:00 Andrés Seaman [facility] XR CHEST 1 VW 2021-12-21 14:05:00 Jurgen [facility] XR SKULL <4 VW 2021-12-21 14:05:00 Jurgen [facility] POCT GLUCOSE (AUTOMATED) 2021-12-21 12:47:00 May Brambila [facility] POCT GLUCOSE (AUTOMATED) 2021-12-21 08:59:00 May Brambila [facility] PHOSPHORUS 2021-12-21 08:56:00 Seveirno Beth [facility] MAGNESIUM 2021-12-21 08:56:00 Kirit [facility] BASIC METABOLIC PANEL (NA, 2021-12-21 08:56:00 Severino Beth [facility] K, CL, CO2, GLUCOSE, BUN, Medica l Branch CREATININE, CA) CBC WITH DIFF 2021-12-21 08:56:00 Kirit [facility] GLYCOSYLATED HEMOGLOBIN 2021-12-21 08:56:00 Severino Beth [facility] (A1C) [facility] POCT GLUCOSE (AUTOMATED) 2021-12-21 04:27:00 May Brambila [facility] POCT GLUCOSE (AUTOMATED) 2021-12-21 01:11:00 [facility] POCT GLUCOSE (AUTOMATED) 2021-12-20 21:02:00 May Brambila [facility] POCT GLUCOSE (AUTOMATED) 2021-12-20 16:08:00 [facility] POCT GLUCOSE (AUTOMATED) 2021-12-20 12:39:00 [facility]ie [facility] BASIC METABOLIC PANEL (NA, 2021-12-20 09:25:00 May Brambila [facility] K, CL, CO2, GLUCOSE, BUN, Medica l Branch CREATININE, CA) CBC WITH DIFF 2021-12-20 09:25:00 Ellie [facility] LACTIC ACID WHOLE BLOOD 2021-12-20 09:25:00 Vincent, [facility] POCT GLUCOSE (AUTOMATED) 2021-12-20 08:56:00 [facility] (AUTOMATED) 2021-12-20 04:51:00 Ellie [facility] URINALYSIS 2021-12-20 02:47:00 Alex [facility] POCT GLUCOSE (AUTOMATED) 2021-12-20 02:29:00 Alex [facility] [place] HB ECG ROUTINE & RHYTHM 2021-12-20 00:33:38 Alex [facility] URINALYSIS 2021-12-20 00:28:00 Alex [facility] URINE CULTURE 2021-12-20 00:28:00 Alex [facility] BLOOD CULTURE SCREEN 2021-12-20 00:25:00 Alex [facility] LIPASE 2021-12-20 00:25:00 Alex [facility] COMP. METABOLIC PANEL 2021-12-20 00:25:00 [facility] ([id number] ACUTE CARE VENOUS BLOOD 2021-12-20 00:25:00 Alex [facility] CBC WITH DIFF 2021-12-20 00:25:00 Alex [facility] LACTIC ACID WHOLE BLOOD 2021-12-20 00:25:00 Alex [facility] MAGNESIUM 2021-12-18 17:57:00 Mayank [facility] BASIC METABOLIC PANEL (NA, 2021-12-18 17:57:00 Jolynn Talley [facility] K, CL, CO2, GLUCOSE, BUN, Medica l Branch CREATININE, CA) CBC WITH DIFF 2021-12-18 17:57:00 Mayank [facility] POCT GLUCOSE (AUTOMATED) 2021-12-18 16:49:00 TerminThomas shultz [facility] POCT GLUCOSE (AUTOMATED) 2021-12-18 12:56:00 Terminella, Thomas [facility] POCT GLUCOSE (AUTOMATED) 2021-12-18 09:41:00 Terminella, Thomas [facility] POCT GLUCOSE (AUTOMATED) 2021-12-18 05:08:00 Terminella, Thomas [facility] POCT GLUCOSE (AUTOMATED) 2021-12-18 01:26:00 Terminella, Thomas [facility] POCT GLUCOSE (AUTOMATED) 2021-12-17 21:41:00 Terminella, Thomas [facility] POCT GLUCOSE (AUTOMATED) 2021-12-17 17:07:00 Terminella, Thomas [facility] POCT GLUCOSE (AUTOMATED) 2021-12-17 14:01:00 Terminella, Thomas [facility] POCT GLUCOSE (AUTOMATED) 2021-12-17 09:18:00 Terminella, Thomas [facility] POCT GLUCOSE (AUTOMATED) 2021-12-17 01:43:00 Terminella, Thomas [facility] POCT GLUCOSE (AUTOMATED) 2021-12-16 21:24:00 Albustami, Gian Uni versity of [facility] POCT GLUCOSE (AUTOMATED) 2021-12-16 16:25:00 Albbessyami, Gian Uni versity [facility] URINALYSIS 2021-12-16 15:46:00 Talley, [facility] URINE CULTURE 2021-12-16 15:46:00 Talley, [facility] POCT GLUCOSE (AUTOMATED) 2021-12-16 15:36:00 AlbbessyamiGian Uni versity of [facility] POCT GLUCOSE (AUTOMATED) 2021-12-16 14:25:00 Albbessyami, Gian Uni vers[facility] of [facility] BASIC METABOLIC PANEL (NA, 2021-12-16 13:45:00 AlbGian cuenca U niversity [facility] K, CL, CO2, GLUCOSE, BUN, Medica l Branch CREATININE, CA) POCT GLUCOSE (AUTOMATED) 2021-12-16 13:34:00 Albustami, Gian Uni versity [facility] CRITICAL CARE 2021-12-16 13:05:05 Gian Olivera o f [facility] POCT GLUCOSE (AUTOMATED) 2021-12-16 12:23:00 Albustami, Gian Uni vers[facility] POCT GLUCOSE (AUTOMATED) 2021-12-16 11:24:00 Albustami, Gian Uni vers[facility] of [facility] POCT GLUCOSE (AUTOMATED) 2021-12-16 10:33:00 Albustami, Gian Uni vers[facility] BASIC METABOLIC PANEL (NA, 2021-12-16 09:32:00 [facility]ustami, [facility] [place] [facility], CL, CO2, GLUCOSE, BUN, Medica l Branch CREATININE, CA) POCT GLUCOSE (AUTOMATED) 2021-12-16 09:30:00 Albustami, Gian Uni versity [facility] POCT GLUCOSE (AUTOMATED) 2021-12-16 08:27:00 Albustami, Gian Uni versity [facility] POCT GLUCOSE (AUTOMATED) 2021-12-16 07:23:00 Albustami, Gian Uni vers[facility] POCT GLUCOSE (AUTOMATED) 2021-12-16 06:22:00 Albustami, Gian Uni versity [facility] BASIC METABOLIC PANEL (NA, 2021-12-16 05:30:00 [facility]ustami, [facility], CO2, GLUCOSE, BUN, Medica l Branch CREATININE, CA) POCT GLUCOSE (AUTOMATED) 2021-12-16 05:27:00 Albustami, Gian Uni versity [facility] POCT GLUCOSE (AUTOMATED) 2021-12-16 04:23:00 Albustami, Gian Uni versity [facility] POCT GLUCOSE (AUTOMATED) 2021-12-16 03:19:00 Albustami, Gian Uni versity [facility] POCT GLUCOSE (AUTOMATED) 2021-12-16 02:24:00 Albjoellen, Gian Uni versity [facility] KETONES URINE 2021-12-16 01:49:00 Mike [facility] o f [facility] BETA HYDROXY-BUTYRATE 2021-12-16 01:44:00 Jolynn Talley [facility] BASIC METABOLIC PANEL (NA, 2021-12-16 01:44:00 Albustami, Gian [facility] K, CL, CO2, GLUCOSE, BUN, Medica l Branch CREATININE, CA) POCT GLUCOSE (AUTOMATED) 2021-12-16 01:24:00 AlbGian cuenca [facility] POCT GLUCOSE (AUTOMATED) 2021-12-16 00:18:00 AlbGian cuenca [facility] POCT GLUCOSE (AUTOMATED) 2021-12-15 22:56:00 AlbGian cuenca [facility] BASIC METABOLIC PANEL (NA, 2021-12-15 22:03:00 AlbGian cuenca [facility] K, CL, CO2, GLUCOSE, BUN, Medica l Branch CREATININE, CA) POCT GLUCOSE (AUTOMATED) 2021-12-15 21:50:00 Gian [facility] POCT GLUCOSE (AUTOMATED) 2021-12-15 20:39:00 Albjoellen Gian [facility] POCT GLUCOSE (AUTOMATED) 2021-12-15 18:58:00 Mike Gian [facility] BASIC METABOLIC PANEL (NA, 2021-12-15 17:46:00 AlbGian cuenca [facility] K, CL, CO2, GLUCOSE, BUN, Medica l Branch CREATININE, CA) POCT GLUCOSE (AUTOMATED) 2021-12-15 17:39:00 Gian [facility] POCT GLUCOSE (AUTOMATED) 2021-12-15 16:22:00 AlbGian cuenca [facility] POCT GLUCOSE (AUTOMATED) 2021-12-15 15:27:00 Mike Gian [facility] POCT GLUCOSE (AUTOMATED) 2021-12-15 14:17:00 Gian [facility] CBC WITHOUT DIFF 2021-12-15 13:33:00 Gian Boyer [facility] POCT GLUCOSE (AUTOMATED) 2021-12-15 13:20:00 Mike Gian [facility] POCT GLUCOSE (AUTOMATED) 2021-12-15 12:13:00 Gian [facility] XR CHEST 1 VW 2021-12-15 11:46:06 Mike [facility] PHOSPHORUS 2021-12-15 10:54:00 Mike [facility] MAGNESIUM 2021-12-15 10:54:00 Mike [facility] OSMOLALITY, SERUM OR 2021-12-15 10:54:00 Mike [facility] PLASMA [facility] BETA HYDROXY-BUTYRATE 2021-12-15 10:54:00 Mike [facility] BASIC METABOLIC PANEL (NA, 2021-12-15 10:54:00 Gian Boyer [facility] K, CL, CO2, GLUCOSE, BUN, Medica l Branch CREATININE, CA) MRSA / MSSA SCREEN BY PCR, 2021-12-15 10:54:00 Gian Boyer [facility] POCT GLUCOSE (AUTOMATED) 2021-12-15 10:53:00 Gian Boyer [facility] POCT GLUCOSE (AUTOMATED) 2021-12-15 08:46:00 Gian Olivera [facility] POCT GLUCOSE (AUTOMATED) 2021-12-15 07:39:00 Gian [facility] POCT GLUCOSE (AUTOMATED) 2021-12-15 07:02:00 Gian [facility] POCT GLUCOSE (AUTOMATED) 2021-12-15 06:17:00 Gian [facility] AC PANEL 21 + LACTIC ACID 2021-12-15 05:36:00 Gian Olivera [facility] POCT GLUCOSE (AUTOMATED) 2021-12-15 04:58:00 Gian Olivera [facility] CT ABDOMEN PELVIS W 2021-12-15 04:33:00 Gian Olivera [facility] CONTRAST [facility] COMP. METABOLIC PANEL 2021-12-15 04:20:00 Gian Olivera [facility] ([id number] BLOOD CULTURE SCREEN 2021-12-15 03:14:00 Gian Olivera [facility] CBC WITH DIFF 2021-12-15 03:14:00 Gian Olivera [facility] LIPASE 2021-12-15 03:13:00 Gian Olivera [facility] TROPONIN I 2021-12-15 03:13:00 Gian Olivera [facility] PROTHROMBIN TIME / INR 2021-12-15 03:13:00 Gian Olivera [facility] ACTIVATED PARTIAL THRMPLAS 2021-12-15 03:13:00 Gian Olivera [facility] N-TERMINAL PRO-BNP 2021-12-15 03:13:[address] [facility] LACTIC ACID WHOLE BLOOD 2021-12-15 03:12:00 Gian Olivera [facility] EKG-12 LEAD 2021-12-15 01:55:16 Doctor Unassigned, [facility] [place] [facility] BASIC METABOLIC PANEL (NA, 2021-11-28 09:31:00 Leif [facility] K, CL, CO2, GLUCOSE, BUN, Medica l Branch CREATININE, CA) CBC WITH DIFF 2021-11-28 09:31:00 Leif [facility] BASIC METABOLIC PANEL (NA, 2021-11-27 08:57:00 Leif [facility] K, CL, CO2, GLUCOSE, [facility], [facility] CREATININE, CA) CBC WITH DIFF 2021-11-27 08:57:00 [facility] COMP. METABOLIC PANEL 2021-11-24 10:55:00 Courtney Lagos [facility] ([id number]) [facility] Branch CBC WITH DIFF 2021-11-24 10:55:00 Cinthya jennifer [facility] N-TERMINAL PRO-BNP 2021-11-24 10:55:[address] [facility] MAGNESIUM 2021-11-23 11:33:00 Cinthya jennifer [facility] COMP. METABOLIC PANEL 2021-11-23 11:33:00 Courtney Lagos [facility] ([id number]) Medical Branch CBC WITH DIFF 2021-11-23 11:33:00 Carlene Weaver [facility] N-TERMINAL PRO-BNP 2021-11-23 11:33:[address] [facility] ASPIRATE OR ABSCESS 2021-11-22 21:31:00 Imani Fleming [facility] CULTURE(AEROBIC/ANAEROBIC) Medic al [place] SODIUM, URINE RANDOM 2021-11-22 11:11:00 Courtney Lagos [facility] PROTEIN CREAT RATIO URINE 2021-11-22 11:11:00 [facility] [place] XR CHEST 1 VW 2021-11-22 11:07:43 Cinthya jennifer [facility] XR FOOT 3+ VW LEFT 2021-11-22 11:07:43 Courtney Lagos [facility] URINE DRUG (IMMUNOASSAY) - 2021-11-22 11:07:00 Courtney Lagos [facility] COMPREHENSIVE DRUG SCREEN Medica l Branch URINE DRUG (LCMSMS) - 2021-11-22 11:07:00 Courtney Lagos [facility] SYNTHETIC OPIATES PANEL Medical Branch PHOSPHORUS 2021-11-22 11:03:00 Courtney Lagos [facility] CREATINE KINASE 2021-11-22 11:03:00 Cinthya jennifer [facility] MAGNESIUM 2021-11-22 11:03:00 Cinthya jennifer [facility] VITAMIN B12, LEVEL 2021-11-22 11:03:[address] [facility] COMP. METABOLIC PANEL 2021-11-22 11:03:00 Courtney Lagos [facility] ([id number]) [facility] Branch SEDIMENTATION RATE 2021-11-22 11:03:[address] [facility] CBC WITH DIFF 2021-11-22 11:03:00 Cinthya jennifer [facility] GLYCOSYLATED HEMOGLOBIN 2021-11-22 11:03:00 Cinthya jennifer [facility] (A1C) [facility] N-TERMINAL PRO-BNP 2021-11-22 11:03:[address] [facility] VITAMIN D, 25-OH 2021-11-22 11:03:00 C[facility] PROCALCITONIN 2021-11-22 11:03:00 Cinthya [facility] CT ANGIOGRAM LOWER 2021-11-22 03:39:00 Gian Olivera [facility] EXTREMITY LEFT W CONTRAST Medica l Branch CT HEAD WO CONTRAST 2021-11-22 03:25:00 Gian Olivera [facility] URINALYSIS 2021-11-22 01:22:00 Gian Olivera [facility] URINE CULTURE 2021-11-22 01:22:00 Gian Olivera [facility] BLOOD CULTURE SCREEN 2021-11-22 00:58:00 Gian Olivera [facility] PHOSPHORUS 2021-11-22 00:58:00 Cinthya [facility] MAGNESIUM 2021-11-22 00:58:00 Cinthya [facility] FERRITIN SERUM 2021-11-22 00:58:00 Cinthya [facility] THYROID STIMULATING 2021-11-22 00:58:00 Cinthya [facility] HORMONE [facility] COMP. METABOLIC PANEL 2021-11-22 00:58:00 iGan Olivera [facility] ([id number]) [facility] LIPID PANEL ([id number])(TOTAL 2021-11-22 00:58:00 Courtney Lagos [facility] TRIGLYCERIDES, HDL) IRON PANEL 2021-11-22 00:58:00 Cinthya [facility] CBC WITH DIFF 2021-11-22 00:58:00 Gian Olivera [facility] PROTHROMBIN TIME / INR 2021-11-22 00:58:00 Gian Olivera [facility] ACTIVATED PARTIAL THRMPLAS 2021-11-22 00:58:00 Gian Olivera [facility] N-TERMINAL PRO-BNP 2021-11-22 00:58:[address] [facility] LACTIC ACID WHOLE BLOOD 2021-11-22 00:58:00 Gian Olivera [facility] EMERGENCY DEPARTMENT 2021-11-21 05:01:00 Doctor Unassigned, [facility] DOCUMENTS [place] [facility] HOSPITAL ADM - MISC 2021-11-21 05:01:00 Doctor Unassigned, [facility] MAGNESIUM 2021-10-16 04:12:00 [facility] METABOLIC PANEL 2021-10-16 04:12:00 [facility] ([id number]) [facility] CBC WITH DIFF 2021-10-16 04:12:[address] [facility] [address] HEAD WO CONTRAST 2021-09-29 00:15:29 Roger Neff [facility] URINALYSIS 2021-09-28 23:53:00 Roger Neff [facility] COMP. METABOLIC PANEL 2021-09-28 23:52:00 Roger Neff Cici [facility] ([id number]) [facility] CBC WITH DIFF 2021-09-28 23:52:00 Roger Neff [facility] XR CHEST 1 VW 2021-08-07 03:03:32 Cinthya jennifer [facility] COMP. METABOLIC PANEL 2021-08-06 11:57:00 Marvin [facility] ([id number]) [facility] CBC WITH DIFF 2021-08-06 11:57:00 Francesco [facility] BASIC METABOLIC PANEL (NA, 2021-08-04 12:10:00 May Brambila [facility] K, CL, CO2, GLUCOSE, BUN, Medica l Branch CREATININE, CA) CBC WITH DIFF 2021-08-04 12:09:00 Ellie [facility] URINALYSIS 2021-08-04 00:40:00 Hanh Gunter [facility] URINE CULTURE 2021-08-04 00:40:00 Hanh Gunter [facility] FECES CULTURE 2021-08-03 14:58:00 [facility] BLOOD 2021-08-03 14:58:00 Ellie [facility] CLOSTRIDIUM DIFFICILE 2021-08-03 14:58:00 Ellie [facility] TOXIN [facility] FECAL PATHOGENS BY PCR 2021-08-03 14:58:00 [facility] (IMMUNOASSAY) - 2021-08-03 10:11:00 May Brambila [facility] COMPREHENSIVE DRUG SCREEN Medica [facility] COVID-19 (ID NOW RAPID 2021-08-03 07:33:00 Carmelita Serna [facility] TESTING) Medical Branch LAB ONLY COVID 2021-08-03 07:33:00 Carmelita Serna [facility] INTERPRETATION [facility] COMP. METABOLIC PANEL 2021-08-03 06:18:00 Carmelita Serna [facility] ([id number]) [facility] CBC WITH DIFF 2021-08-03 05:40:00 Carmelita Serna [facility] URINALYSIS 2021-08-01 01:43:00 Stephanie Balderrama [facility] LIPASE 2021-08-01 01:40:00 Stephanie Balderrama [facility] COMP. METABOLIC PANEL 2021-08-01 01:40:00 Stephanie Balderrama [facility] ([id number]) [facility] CBC WITH DIFF 2021-08-01 01:38:00 Stephanie Balderrama [facility] XR CHEST 1 VW 2021-07-31 23:40:19 Stephanie Balderrama [facility] ASSIGNMENT OF BENEFITS 2021-07-31 22:05:40 Doctor Unassigned, [facility] [place] [facility] [place] NOTICE OF PRIVACY 2021-07-31 22:04:58 Doctor Unassigned, [facility] [place] [facility] [place] CONSENT/REFUSAL FOR 2021-07-31 22:04:33 Doctor Unassigned, [facility] DIAGNOSIS AND TREATMENT [place] [facility] URINALYSIS 2021-07-29 23:09:00 Lynette Fonseca [facility] BLOOD CULTURE SCREEN 2021-07-29 23:04:00 Lynette Fonseca [facility] D-DIMER 2021-07-29 22:49:00 Lynette Fonseca [facility] COVID-19 (ID NOW RAPID 2021-07-29 22:48:00 Lynette Fonseca [facility] TESTING) Medical [place] COMP. METABOLIC PANEL 2021-07-29 22:17:00 Lynette Fonseca [facility] ([id number]) [facility] CBC WITH DIFF 2021-07-29 22:17:00 Lynette Fonseca [facility] XR CHEST 1 VW 2021-07-29 21:47:19 Lynette Fonseca [facility] COMP. METABOLIC PANEL 2021-06-07 22:20:00 Sidney Sanford [facility] ([id number]) [facility] CBC WITH DIFF 2021-06-07 22:20:00 Sidney Sanford [place] o [facility] CT ABDOMEN PELVIS WO 2020-11-21 00:39:40 Madonna Helms [facility] CONTRAST Medical Branch LIPASE 2020-11-21 00:06:00 Madonna Helms [facility] COMP. 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 Plan of Care Planned Activity Planned Date Details Comments Source Future Scheduled 2022-07-[address] [facility]00 (procedure) [code = Medical Center [id number]] Future Scheduled 2021-03-[address] [facility] Test 00:00:00 (Season Ended) [code = [facility] INFLUENZA VACCINE (Season Ended)] Future Scheduled 2020-07-[address] [facility] Test 00:00:00 (12+) [code = Medical Center DEPRESSION SCREENING (12+)] Future Scheduled 2019-10-[address] 00:00:00 measurement [facility] Center (procedure) [code = 88320322] Future Scheduled 2004 DTAP/TDAP/TD VACCINES [facility] 00:00:00 (1 - Tdap) [code = Medical C enter DTAP/TDAP/TD VACCINES (1 - Tdap)] Future Scheduled 2003 HEPATITIS C [facility]CRE[facility]ING [facility] 00:00:00 [code = HEPATITIS C Medical Center SCREENING] Future Scheduled 1997 COVID-19 VACCINE (1) [facility] Test 00:00:00 [code = COVID-[address] VACCINE (1)] Future Scheduled 1995 DIABETIC EYE EXAM [facility] Test 00:00:00 [code = DIABETIC EYE [facility] Center EXAM] Future Scheduled 1995 Urine screening for [facility] Test 00:00:00 protein (procedure) [facility] Center [code = 104246504] Future Scheduled [address] [facility] Test 00:00:00 0-64 YRS (1 of 1 - Medical C enter PPSV23) [code = PNEUMOCOCCAL VACCINE 0-64 YRS (1 of 1 - PPSV23)] Encounters Start End Encounter Admission Attending Care Care Encounter Source Date/Time Date/Time Type Type Clinicians Facility Department ID 2021-10-23 Outpatient [facility] [id number] [place] 08:22:27 0411 [facility] 2021-10-09 Outpatient [facility] [id number] [place] 11:10:01 0328 [facility] 2021-08-09 Outpatient AQUILES Varela [facility] [id number] [facility] 13:45:16 Eren [id number] [facility] 2021-08-09 Outpatient Nichole [facility] [id number] Common 13:17:39 Eren [id number] [facility] 2021-08-09 Outpatient Nichole, [facility] [id number] Common 13:16:34 Eren [id number] [facility] 2021-12-19 2021-12-22 [facility] [id number] Univers 18:25:00 19:30:00 [facility] 2021-12-19 2021-12-22 Emergency Mario [facility] 1.2.840. [id number] Univers 18:25:00 19:30:00 May BrambilaJAQUI [id number] ity of [place] [id number] [facility] [id number] [facility] 080 Branch 2021-12-19 2021-12-19 Transition DEVANTE Alvarado [id number] Univers 00:00:00 00:00:00 of Care Kristiesa Alex GILLESPIE [id number] i ty of [place] [id number] [facility] [id number] [facility] 403 Branch 2021-12-14 2021-12-18 Inpatient X [facility] [place] [id number] Univers 20:53:00 18:25:00 [facility] nathaniel o [facility] 2021-12-14 2021-12-18 Hospital Gian Olivera [facility] 1.2.840.1 [id number] Univers 20:53:00 18:25:00 Encounter [facility] [id number] ity of [place] [id number] [facility] [id number] Medical [address] ([facility]) 2021-11-29 2021-11-29 Transition DEVANTE Zepeda 1.2.840.114 [id number] Univers 00:00:00 00:00:00 of Care Kamila GILLESPIE [id number] ity of [place] [id number] [place] [id number] [facility] 403 Branch 2021-11-21 2021-11-28 Inpatient X CINTHYA [facility] [place] [id number] Univers 19:10:00 17:32:00 COURTNEY itlizet [facility] 2021-11-21 2021-11-28 [facility] Gian Olivera [facility] 1.2.840.1 [id number] Univers 19:10:00 17:32:00 Encounter Courtney Lagos RENEE [id number] ity of [place] [id number] [facility] [id number] [place] 272451 Branch 2021-10-24 2021-10-25 Outpatient U REUBEN, [facility] [id number] [facility] 07:00:00 17:50:00 EDILBERTO 2021-10-15 2021-10-16 Emergency X [facility] ERT [id number] Univers 22:45:00 01:52:00 SIDNEY saba [facility] 2021-10-15 2021-10-16 Emergency [facility] [id number] Univers 22:45:00 01:52:00 Sidney DURAN [id number] i ty of [place] [id number] [facility] [id number] [address] 2021-09-28 2021-09-28 Emergency X Roger NEFF [facility] ERT [id number] Univers 18:08:00 22:51:00 [facility] 2021-09-28 2021-09-28 Emergency Roger Neff [facility] 1.2.840.114 [id number] Univers 18:08:00 22:51:00 Cici DURAN [id number] i ty [facility] 4.2.7.2.686 [facility] [id number] [place] 272454 Branch 2021-08-09 2021-08-09 Transition DEVANTE Zepeda 1.2.840.114 [id number] Univers 00:00:00 00:00:00 of Care Kamila STEVENSY [id number] ity of [place] [id number] [facility] [id number] [facility] 403 Branch 2021-08-02 2021-08-08 Inpatient X JUAN CARLOS [facility] [place] [id number] Univers 19:07:00 19:39:00 [facility] 2021-08-02 2021-08-08 [facility] Carmelita Serna [facility] 1.2.840. 114 [id number] Univers 19:07:00 19:39:00 Encounter May Brambila [place] [id number] ity of PRIYANKAJAGDISH 4.2.7.2.686 [facility] [id number] [address] 2021-07-31 2021-07-31 Emergency X CACRIMA, [facility] ERT [id number] Univers 14:41:00 22:07:00 STEPHANIE saba [facility] 2021-07-31 2021-07-31 Emergency Cacace, [facility] [id number] Univers 14:41:00 22:07:00 Stephanie DURAN [id number] ity of [place] 4.2.7.2.686 [facility] [id number] [address] 2021-07-29 2021-07-29 Emergency X [facility] ERT [id number] Univers 14:49:00 21:33:00 LYNETTE saba [facility] 2021-07-29 2021-07-29 Emergency [facility], [facility] [id number] Univers 14:49:00 21:33:00 Lynette DURAN [id number] ity of [place] 4.2.7.2.686 [facility] [id number] [address] 2021-07-11 2021-07-11 Laboratory Only, Ang Db Test [facility] 1.2.8 40.114 [id number] Univers 18:00:00 18:15:00 Only Sierra Lundberg [facility] [id number] ity of [place] 4.2.7.2.686 Tim as VICENTA?BLEA [id number] Ri sabra [address] MEDICAL OFFICE BUILDING 2021-07-11 2021-07-11 Outpatient Damaso [facility] [id number] Univers 18:00:00 18:00:00 SIERRA nathaniellizet [facility] 2021-07-05 2021-07-05 ambulatory STLMLC STLMLC [id number] Common 00:00:00 00:00:00 [facility] 2021-07-04 2021-07-04 ambulatory STLMLC STLMLC [id number] Common 00:00:00 00:00:00 [facility] 2021-06-07 2021-06-07 Emergency X [facility] ERT [id number] Univers 15:54:00 18:34:00 SIDNEY saba [facility] 2021-06-07 2021-06-07 [facility]iana [facility] [id number] [id number] Univers 15:54:00 18:34:00 Sidney DURAN [id number] [facility] [id number] [place] [facility] [id number] [place] [address] Branch 2021-04-25 2021-04-25 Outpatient STLMLC STLMLC [id number] Common 00:00:00 00:00:00 [facility] 2021-04-11 2021-04-11 Outpatient STLMLC STLMLC [id number] Common 00:00:00 00:00:00 [facility] 2021-02-21 2021-02-21 Outpatient STLMLC STLMLC [id number] Common 00:00:00 00:00:00 [facility] 2021-01-31 2021-01-31 Outpatient STLMLC STLMLC [id number] Common 00:00:00 00:00:00 [facility] 2021-01-03 2021-01-03 Outpatient STLMLC STLMLC [id number] Common 00:00:00 00:00:00 [facility] 2020-11-20 2020-11-20 Emergency Analia [facility] 1.2.840.114 [id number] 18:22:00 22:21:00 Madonna Moraton [id number] [place] 4.2.7.2.686 [place] [id number] [facility] 2020-11-20 2020-11-20 Emergency [facility] 1.2.840.114 [id number] [facility] 18:22:00 22:21:00 Sonyo Cassandra Bush 350.1.13.10 ity [facility] [id number] [facility] [id number] [address] 2020-11-20 2020-11-20 Emergency X [facility] ERT [id number] Univers 18:22:00 18:22:00 CLARYUSHO ity [facility] 2019-03-02 2019-03-04 Phone nullFlavo MNA [id number] Memoria 16:11:26 04:59:59 Message r Neurosurger 08 l y [facility] 2019-02-10 2019-02-12 Phone nullFlavo MNA [id number] Memoria 16:16:47 04:59:59 Message r Neurosurger 07 l y [facility] 2019-01-26 2019-01-28 Phone nullFlavo MNA [id number] Memoria 15:52:03 04:59:59 Message r Neurosurger 06 l y [facility] 2019-01-01 2019-01-03 Phone nullFlavo MNA [id number] Memoria 18:55:03 04:59:59 Message r Neurosurger 05 l y [facility] 2018-05-22 2018-05-22 Emergency nullFlavo [facility] [id number] Memoria 10:12:00 18:24:[address] 2018-02-18 2018-02-18 Outpatient [facility] [id number] Common 11:15:00 11:15:00 t [employer] [address] [facility] 2018-01-27 2018-01-27 [facility] [id number] Common 11:30:00 11:30:00 t [employer] [facility] it Drive [facility] 2018-01-03 2018-01-03 Outpatient Suzette Bradfordt [id number] Common 15:41:00 15:41:00 [place] [address] [facility] 2017-12-23 2017-12-23 Outpatient Suzette Bradfordt [id number] Common 15:42:00 15:42:00 t [place] [address] [facility] 2017-12-17 2017-12-17 Outpatient Suzette Bradfordt [id number] Common 11:00:00 11:00:00 t [place] [address] [facility] 2017-11-14 2017-11-19 Inpatient [facility] [id number] Memoria 22:40:00 17:28:[address] Results Test Description Test Time Test Comments Results Result Comments Source POCT GLUCOSE (AUTOMATED) 2021-12-22 17:25:00 Test Item Value Reference Range Interpretation Comme nts POCT GLU (test code = 8720583596) 249 mg/dL 70-110 H Lab Interpretation (test code = 07050-2) [facility]normal [facility]2021-12-22 12:54:01 Test Item Value Reference Range Interpretation Comments POCT GLU (test code = 1166733269) 188 mg/dL 70-110 H Lab Interpretation (test code = Abnormal 42760-7) [facility] METABOLIC PANEL (NA, K, CL, CO2, GLUCOSE, BUN, CREATININE, CA)2021-12-22 11:48:23 Test Item Value Reference Range Interpretation Comments NA (test code = 137 mmol/L 135-145 1095749745) K (test code = 4.3 mmol/L 3.5-5.0 0480872886) CL (test code = 105 mmol/L 98-108 2001868187) CO2 TOTAL (test code = 23 mmol/L 23-31 8593979854) AGAP (test code = 2-16 0720732468) BUN (test code = 19 mg/dL 7-23 1925228435) GLUCOSE (test code = 243 mg/dL 70-110 H 3132070621) CREATININE (test code = 0.50 mg/dL 0.60-1.25 L 7450626419) CALCIUM (test code = 8.9 mg/dL 8.6-10.6 2777857191) eGFR (test code = mL/min/1.73m2 2971644180) ARPITA (test code = ARPITA) Association of [...] tests). Lab Interpretation Abnormal (test code = 16972-7) [facility] 11:48:23 Test Item Value Reference Range Interpretation Comments MAGNESIUM (test code = 4648583901) 2.1 mg/dL 1.7-2.4 Lab Interpretation (test code = Normal 42236-8) [facility] WITH [id number] 11:09:44 Test Item Value Reference Range Interpretation Comments WBC (test code = See_Comment [Automated message] 6690-2) The system [employer] generated this result transmitted ref erence range: 4.20 - 1 0.70 10*3/?L. The re ference range was not u sed to interpret this result as normal/abnor mal. RBC (test code = See_Comment [Automated message] 789-8) The system [employer] generated this result transmitted ref erence range: 4.26 - 5 .52 10*6/?L. The re ference range was not u sed to interpret this result as normal/abnor mal. HGB (test code = 15.9 g/dL 12.2-16.4 718-7) HCT (test code = 46.8 % 38.4-49.3 4544-3) MCV (test code = 87.5 fL 81.7-95.6 787-2) MCH (test code = 29.7 pg 26.1-32.7 785-6) MCHC (test code = 34.0 g/dL 31.2-35.0 786-4) RDW-SD (test code 43.6 fL 38.5-51.6 = 26829-7) RDW-CV (test code 13.7 % 12.1-15.4 = 788-0) PLT (test code = See_Comment [Automated message] 777-3) The system [employer] generated this result transmitted ref erence range: 150 - 32 8 10*3/?L. The re ference range was not u sed to interpret this result as normal/abnor mal. MPV (test code = 11.0 fL 9.8-13.0 95478-3) NRBC/100 WBC (test See_Comment [Automat ed message] code = 0829062381) The [employer] which generated this result transmitted ref erence range: 0.0 - 10 .0 /100 WBCs. The refer ence range was not u sed to interpret this result as normal/abnor mal. NRBC x10^3 (test <0.01 See_Comment [Automated message] code = 2272952552) The [employer] which generated this result transmitted ref erence range: 10*3/?L. The reference range was not used to interpr et this result as normal/abnormal . GRAN MAT (NEUT) % 57.9 % (test code = 770-8) IMM GRAN % (test 0.60 % code = 5213489220) LYMPH % (test code 30.7 % = 736-9) MONO % (test code 8.5 % = 5905-5) EOS % (test code = 2.0 % 713-8) BASO % (test code 0.3 % = 706-2) GRAN MAT 5.14 10*3/uL 1.99-6.95 x10^3(ANC) (test code = 4469752517) IMM GRAN x10^3 0.05 10*3/uL 0.00-0.06 (test code = 4584130458) LYMPH x10^3 (test 2.73 10*3/uL 1.09-3.23 code = 731-0) MONO x10^3 (test 0.76 10*3/uL 0.36-1.02 code = 742-7) EOS x10^3 (test 0.18 10*3/uL 0.06-0.53 code = 711-2) BASO x10^3 (test 0.03 10*3/uL 0.01-0.09 code = 704-7) [facility] GLUCOSE (AUTOMATED)2021-12-22 10:34:14 Test Item Value Reference Range Interpretation Comments POCT GLU (test code = 4590213689) 230 mg/dL 70-110 H Lab Interpretation (test code = Abnormal 00465-5) [facility] GLUCOSE (AUTOMATED)2021-12-22 05:56:50 Test Item Value Reference Range Interpretation Comments POCT GLU (test code = 6135173630) 314 mg/dL 70-110 H Lab Interpretation (test code = Abnormal 87269-5) [facility] GLUCOSE (AUTOMATED)2021-12-22 04:40:22 Test Item Value Reference Range Interpretation Comments POCT GLU (test code = 2784307225) 324 mg/dL 70-110 H Lab Interpretation (test code = Abnormal 36751-7) [facility] GLUCOSE (AUTOMATED)2021-12-22 02:37:33 Test Item Value Reference Range Interpretation Comments POCT GLU (test code = 1676101737) 296 mg/dL 70-110 H Lab Interpretation (test code = Abnormal 19574-9) [facility] GLUCOSE (AUTOMATED)2021-12-22 01:05:02 Test Item Value Reference Range Interpretation Comments POCT GLU (test code = 8265247742) 319 mg/dL 70-110 H Lab Interpretation (test code = Abnormal 79434-9) [facility] GLUCOSE (AUTOMATED)2021-12-21 21:59:09 Test Item Value Reference Range Interpretation Comments POCT GLU (test code = 6846540970) 257 mg/dL 70-110 H Lab Interpretation (test code = Abnormal 52029-6) [facility] GLUCOSE (AUTOMATED)2021-12-21 17:21:41 Test Item Value Reference Range Interpretation Comments POCT GLU (test code = 3927607172) 214 mg/dL 70-110 H Lab Interpretation (test code = Abnormal 64596-7) [facility] GLUCOSE (AUTOMATED)2021-12-21 13:04:04 Test Item Value Reference Range Interpretation Comments POCT GLU (test code = 7042614679) 234 mg/dL 70-110 H Lab Interpretation (test code = Abnormal 84293-2) [facility] METABOLIC PANEL (NA, K, CL, CO2, GLUCOSE, BUN, CREATININE, CA)2021-12-21 12:23:33 Test Item Value Reference Range Interpretation Comments NA (test code = 136 mmol/L 135-145 0360664377) K (test code = 4.1 mmol/L 3.5-5.0 6341331709) CL (test code = 109 mmol/L 98-108 H 3579988212) CO2 TOTAL (test code = 20 mmol/L 23-31 L 0452100247) AGAP (test code = 2-16 2957291545) BUN (test code = 16 mg/dL 7-23 2524427316) GLUCOSE (test code = 281 mg/dL 70-110 H 9533998746) CREATININE (test code = 0.50 mg/dL 0.60-1.25 L 4250471390) CALCIUM (test code = 8.3 mg/dL 8.6-10.6 L 9121680543) eGFR (test code = mL/min/1.73m2 1769551248) ARPITA (test code = ARPITA) Association of [...] tests). Lab Interpretation Abnormal (test code = 48739-2) [facility] Test Item Value Reference Range Interpretation Comments MAGNESIUM (test code = 4418054831) 1.6 mg/dL 1.7-2.4 L Lab Interpretation (test code = Abnormal 44757-2) [facility] 12:23:13 Test Item Value Reference Range Interpretation Comments PHOSPHORUS (test code = 7918706016) 3.2 mg/dL 2.5-5.0 Lab Interpretation (test code = Normal 77650-3) [facility]A1C)2021-12-21 10:04:37 Test Item Value Reference Range Interpretation Comments HGB A1C (test code = 9.6 % 4.0-5.7 H 4548-4) ARPITA (test code = ARPITA) Reference RangesNormal: <5.7%Prediabetes: 5.7 - 6.4%Diabetes: > 6.5% Lab Interpretation (test Abnormal code = 31261-0) [facility] WITH [id number] 09:29:41 Test Item Value Reference Range Interpretation Comments WBC (test code = See_Comment [Automated message] 6690-2) The system [employer] generated this result transmitted ref erence range: 4.20 - 1 0.70 10*3/?L. The re ference range was not u sed to interpret this result as normal/abnor mal. RBC (test code = See_Comment [Automated message] 789-8) The system [employer] generated this result transmitted ref erence range: 4.26 - 5 .52 10*6/?L. The re ference range was not u sed to interpret this result as normal/abnor mal. HGB (test code = 14.7 g/dL 12.2-16.4 718-7) HCT (test code = 43.3 % 38.4-49.3 4544-3) MCV (test code = 86.9 fL 81.7-95.6 787-2) MCH (test code = 29.5 pg 26.1-32.7 785-6) MCHC (test code = 33.9 g/dL 31.2-35.0 786-4) RDW-SD (test code 42.5 fL 38.5-51.6 = 70475-3) RDW-CV (test code 13.5 % 12.1-15.4 = 788-0) PLT (test code = See_Comment [Automated message] 777-3) The system [employer] generated this result transmitted ref erence range: 150 - 32 8 10*3/?L. The re ference range was not u sed to interpret this result as normal/abnor mal. MPV (test code = 10.8 fL 9.8-13.0 13581-6) NRBC/100 WBC (test See_Comment [Automat ed message] code = 6924208942) The syste [employer] which generated this result transmitted ref erence range: 0.0 - 10 .0 /100 WBCs. The refer ence range was not u sed to interpret this result as normal/abnor mal. NRBC x10^3 (test <0.01 See_Comment [Automated message] code = 1082455044) The syste m which generated this result transmitted ref erence range: 10*3/?L. The reference range was not used to interpr et this result as normal/abnormal . GRAN MAT (NEUT) % 58.6 % (test code = 770-8) IMM GRAN % (test 0.50 % code = 7303783780) LYMPH % (test code 31.3 % = 736-9) MONO % (test code 6.9 % = 5905-5) EOS % (test code = 2.4 % 713-8) BASO % (test code 0.3 % = 706-2) GRAN MAT 5.39 10*3/uL 1.99-6.95 x10^3(ANC) (test code = 7229722901) IMM GRAN x10^3 0.05 10*3/uL 0.00-0.06 (test code = 1115461854) LYMPH x10^3 (test 2.89 10*3/uL 1.09-3.23 code = 731-0) MONO x10^3 (test 0.64 10*3/uL 0.36-1.02 code = 742-7) EOS x10^3 (test 0.22 10*3/uL 0.06-0.53 code = 711-2) BASO x10^3 (test 0.03 10*3/uL 0.01-0.09 code = 704-7) [facility] GLUCOSE (AUTOMATED)2021-12-21 09:06:33 Test Item Value Reference Range Interpretation Comments POCT GLU (test code = 0040588973) 206 mg/dL 70-110 H Lab Interpretation (test code = Abnormal 61137-5) [facility] GLUCOSE (AUTOMATED)2021-12-21 04:38:41 Test Item Value Reference Range Interpretation Comments POCT GLU (test code = 5497075280) 272 mg/dL 70-110 H Lab Interpretation (test code = Abnormal 41092-4) [facility] GLUCOSE (AUTOMATED)2021-12-21 01:14:47 Test Item Value Reference Range Interpretation Comments POCT GLU (test code = 3491070281) 256 mg/dL 70-110 H Lab Interpretation (test code = Abnormal 93551-1) [facility] GLUCOSE (AUTOMATED)2021-12-20 21:11:19 Test Item Value Reference Range Interpretation Comments POCT GLU (test code = 9790196150) 254 mg/dL 70-110 H Lab Interpretation (test code = Abnormal 78207-8) [facility] GLUCOSE (AUTOMATED)2021-12-20 17:10:33 Test Item Value Reference Range Interpretation Comments POCT GLU (test code = 1583211400) 350 mg/dL 70-110 H Lab Interpretation (test code = Abnormal 13746-8) [facility] GLUCOSE (AUTOMATED)2021-12-20 12:50:18 Test Item Value Reference Range Interpretation Comments POCT GLU (test code = 0244159633) 269 mg/dL 70-110 H Lab Interpretation (test code = Abnormal 07797-3) [facility] Metabolic Panel (NA, K, CL, CO2, GLUCOSE, BUN, CREATININE, CA)2021-12-20 10:18:27 Test Item Value Reference Range Interpretation Comments NA (test code = 137 mmol/L 135-145 6091513387) K (test code = 4.0 mmol/L 3.5-5.0 4235350524) CL (test code = 108 mmol/L 98-108 4314088863) CO2 TOTAL (test code = 23 mmol/L 23-31 9068821602) AGAP (test code = 2-16 8709051740) BUN (test code = 16 mg/dL 7-23 3658942182) GLUCOSE (test code = 386 mg/dL 70-110 H 6144403978) CREATININE (test code = 0.70 mg/dL 0.60-1.25 0756723374) CALCIUM (test code = 8.6 mg/dL 8.6-10.6 8480850308) eGFR (test code = mL/min/1.73m2 3425299801) ARPITA (test code = ARPITA) Association of [...] tests). Lab Interpretation Abnormal (test code = 40648-9) [facility] with [id number] 10:03:31 Test Item Value Reference Range Interpretation Comments WBC (test code = See_Comment [Automated message] 6690-2) The system [employer] generated this result transmitted ref erence range: 4.20 - 1 0.70 10*3/?L. The re ference range was not u sed to interpret this result as normal/abnor mal. RBC (test code = See_Comment [Automated message] 789-8) The system [employer] generated this result transmitted ref erence range: 4.26 - 5 .52 10*6/?L. The re ference range was not u sed to interpret this result as normal/abnor mal. HGB (test code = 15.5 g/dL 12.2-16.4 718-7) HCT (test code = 45.0 % 38.4-49.3 4544-3) MCV (test code = 85.9 fL 81.7-95.6 787-2) MCH (test code = 29.6 pg 26.1-32.7 785-6) MCHC (test code = 34.4 g/dL 31.2-35.0 786-4) RDW-SD (test code 42.5 fL 38.5-51.6 = 41408-0) RDW-CV (test code 13.5 % 12.1-15.4 = 788-0) PLT (test code = See_Comment [Automated message] 777-3) The system whic h generated this result transmitted ref erence range: 150 - 32 8 10*3/?L. The re ference range was not u sed to interpret this result as normal/abnor mal. MPV (test code = 11.2 fL 9.8-13.0 61192-8) NRBC/100 WBC (test See_Comment [Automat ed message] code = 7131778113) The syste m which generated this result transmitted ref erence range: 0.0 - 10 .0 /100 WBCs. The refer ence range was not u sed to interpret this result as normal/abnor mal. NRBC x10^3 (test <0.01 See_Comment [Automated message] code = 7404622678) The syste m which generated this result transmitted ref erence range: 10*3/?L. The reference range was not used to interpr et this result as normal/abnormal . GRAN MAT (NEUT) % 63.5 % (test code = 770-8) IMM GRAN % (test 0.30 % code = 3705143232) LYMPH % (test code 24.8 % = 736-9) MONO % (test code 8.7 % = 5905-5) EOS % (test code = 2.5 % 713-8) BASO % (test code 0.2 % = 706-2) GRAN MAT 6.05 10*3/uL 1.99-6.95 x10^3(ANC) (test code = 6566951511) IMM GRAN x10^3 0.03 10*3/uL 0.00-0.06 (test code = 0369555309) LYMPH x10^3 (test 2.37 10*3/uL 1.09-3.23 code = 731-0) MONO x10^3 (test 0.83 10*3/uL 0.36-1.02 code = 742-7) EOS x10^3 (test 0.24 10*3/uL 0.06-0.53 code = 711-2) BASO x10^3 (test <0.03 0.01-0.09 code = 704-7) [facility] GLUCOSE (AUTOMATED)2021-12-20 09:00:15 Test Item Value Reference Range Interpretation Comments POCT GLU (test code = 1074215349) 402 mg/dL 70-110 H Lab Interpretation (test code = Abnormal 44112-5) [facility] GLUCOSE (AUTOMATED)2021-12-20 04:54:36 Test Item Value Reference Range Interpretation Comments POCT GLU (test code = 4696177700) 368 mg/dL 70-110 H Lab Interpretation (test code = Abnormal 46533-0) [facility] GLUCOSE (AUTOMATED)2021-12-20 03:13:40 Test Item Value Reference Range Interpretation Comments POCT GLU (test code = 2819467580) 438 mg/dL 70-110 H Lab Interpretation (test code = Abnormal 43829-5) [facility]2021-12-20 01:05:39 Test Item Value Reference Range Interpretation Comments NA (test code = 133 mmol/L 135-145 L 4467039719) K (test code = 4.7 mmol/L 3.5-5.0 9873654109) CL (test code = 99 mmol/L 98-108 5869951412) CO2 TOTAL (test code = 21 mmol/L 23-31 L 3076546070) AGAP (test code = 2-16 2147310747) BUN (test code = 18 mg/dL 7-23 1538643557) GLUCOSE (test code = 660 mg/dL 70-110 HH 9217984373) CREATININE (test code = 0.64 mg/dL 0.60-1.25 1212547931) TOTAL BILI (test code = 1.0 mg/dL 0.1-1.7 7176128466) CALCIUM (test code = 9.7 mg/dL 8.6-10.6 2428420270) T PROTEIN (test code = 7.9 g/dL 6.3-8.2 6650890850) ALBUMIN (test code = 4.4 g/dL 3.5-5.0 4111278953) ALK PHOS (test code = 143 U/L 34-122 H 5162854685) ALTv (test code = 47 U/L 5-50 1742-6) AST(SGOT) (test code = 30 U/L 13-40 4224395183) eGFR (test code = mL/min/1.73m2 9550074897) ARPITA (test code = ARPITA) Association of [...] tests). Lab Interpretation Abnormal (test code = 99554-4) [facility]15 Test Item Value Reference Range Interpretation Comments LIPASE (test code = 5291250950) 255 U/L 0-220 H Lab Interpretation (test code = Abnormal 13151-7) [facility] WITH [id number] 00:38:14 Test Item Value Reference Range Interpretation Comments [...] as normal/abnormal . HGB (test code = 16.5 g/dL 12.2-16.4 H 718-7) HCT (test code = 48.9 % 38.4-49.3 4544-3) MCV (test code = 87.2 fL 81.7-95.6 787-2) MCH (test code = 29.4 pg 26.1-32.7 785-6) MCHC (test code = 33.7 g/dL 31.2-35.0 786-4) RDW-SD (test code = 43.8 fL 38.5-51.6 84870-5) RDW-CV (test code = 13.6 % 12.1-15.4 788-0) PLT (test code = See_Comment [Automated 777-3) message] The sy stem which generated this result transmitted reference range : 150 - 328 10*3/ ?L. The reference r boubacar was not used to interpret this result as normal/abnormal . MPV (test code = 11.4 fL 9.8-13.0 44725-0) NRBC/100 WBC (test See_Comment [Automat ed code = 6584163089) message] The system which generated this result transmitted reference range : 0.0 - 10.0 /100 WBCs. The refer ence range was not u sed to interpret th is result as normal/abnormal . NRBC x10^3 (test code <0.01 See_Comment [Auto mated = 4124235302) message] The s ystem which generated this result transmitted reference range : 10*3/?L. The reference range was not used to interpret this result as normal/abnormal . GRAN MAT (NEUT) % 76.0 % (test code = 770-8) IMM GRAN % (test code 0.50 % = 2341473305) LYMPH % (test code = 15.2 % 736-9) MONO % (test code = 6.5 % 5905-5) EOS % (test code = 1.6 % 713-8) BASO % (test code = 0.2 % 706-2) GRAN MAT x10^3(ANC) 8.55 10*3/uL 1.99-6.95 H (test code = 9021438528) IMM GRAN x10^3 (test 0.06 10*3/uL 0.00-0.06 code = 6095329775) LYMPH x10^3 (test code 1.71 10*3/uL 1.09-3.23 = 731-0) MONO x10^3 (test code 0.73 10*3/uL 0.36-1.02 = 742-7) EOS x10^3 (test code = 0.18 10*3/uL 0.06-0.53 711-2) BASO x10^3 (test code <0.03 0.01-0.09 = 704-7) Lab Interpretation Abnormal (test code = 32633-6) [facility] 18:32:39 Test Item Value Reference Range Interpretation Comments MAGNESIUM (test code = 1612535392) 1.7 mg/dL 1.7-2.4 Lab Interpretation (test code = Normal 31343-4) [facility] (NA, K, CL, CO2, GLUCOSE, BUN, CREATININE, CA)2021-12-18 18:32:38 Test Item Value Reference Range Interpretation Comments NA (test code = 137 mmol/L 135-145 6293710698) K (test code = 4.3 mmol/L 3.5-5.0 7788184247) CL (test code = 105 mmol/L 98-108 2688032961) CO2 TOTAL (test code = 23 mmol/L 23-31 7009620993) AGAP (test code = 2-16 4692685032) BUN (test code = 17 mg/dL 7-23 5501160205) GLUCOSE (test code = 317 mg/dL 70-110 H 8528439320) CREATININE (test code = 0.57 mg/dL 0.60-1.25 L 3725729360) CALCIUM (test code = 9.3 mg/dL 8.6-10.6 4462584770) eGFR (test code = mL/min/1.73m2 7911199372) ARPITA (test code = ARPITA) Association of [...] tests). Lab Interpretation Abnormal (test code = 48281-2) [facility] WITH [id number] 18:10:18 Test Item Value Reference Range Interpretation Comments WBC (test code = See_Comment [Automated message] 6690-2) The system [employer] generated this result transmitted ref erence range: 4.20 - 1 0.70 10*3/?L. The re ference range was not u sed to interpret this result as normal/abnor mal. RBC (test code = See_Comment [Automated message] 789-8) The system [employer] generated this result transmitted ref erence range: 4.26 - 5 .52 10*6/?L. The re ference range was not u sed to interpret this result as normal/abnor mal. HGB (test code = 16.0 g/dL 12.2-16.4 718-7) HCT (test code = 47.3 % 38.4-49.3 4544-3) MCV (test code = 87.1 fL 81.7-95.6 787-2) MCH (test code = 29.5 pg 26.1-32.7 785-6) MCHC (test code = 33.8 g/dL 31.2-35.0 786-4) RDW-SD (test code 44.4 fL 38.5-51.6 = 69961-6) RDW-CV (test code 13.8 % 12.1-15.4 = 788-0) PLT (test code = See_Comment [Automated message] 777-3) The system [employer] generated this result transmitted ref erence range: 150 - 32 8 10*3/?L. The re ference range was not u sed to interpret this result as normal/abnor mal. MPV (test code = 10.9 fL 9.8-13.0 36846-1) NRBC/100 WBC (test See_Comment [Automat ed message] code = 2866843113) The syste m which generated this result transmitted ref erence range: 0.0 - 10 .0 /100 WBCs. The refer ence range was not u sed to interpret this result as normal/abnor mal. NRBC x10^3 (test <0.01 See_Comment [Automated message] code = 9607759976) The syste m which generated this result transmitted ref erence range: 10*3/?L. The reference range was not used to interpr et this result as normal/abnormal . GRAN MAT (NEUT) % 53.4 % (test code = 770-8) IMM GRAN % (test 0.30 % code = 7283340392) LYMPH % (test code 35.3 % = 736-9) MONO % (test code 7.4 % = 5905-5) EOS % (test code = 3.3 % 713-8) BASO % (test code 0.3 % = 706-2) GRAN MAT 3.59 10*3/uL 1.99-6.95 x10^3(ANC) (test code = 0606976635) IMM GRAN x10^3 <0.03 0.00-0.06 (test code = 6056487886) LYMPH x10^3 (test 2.37 10*3/uL 1.09-3.23 code = 731-0) MONO x10^3 (test 0.50 10*3/uL 0.36-1.02 code = 742-7) EOS x10^3 (test 0.22 10*3/uL 0.06-0.53 code = 711-2) BASO x10^3 (test <0.03 0.01-0.09 code = 704-7) [facility] GLUCOSE (AUTOMATED)2021-12-18 16:50:23 Test Item Value Reference Range Interpretation Comments POCT GLU (test code = 2086570829) 304 mg/dL 70-110 H Lab Interpretation (test code = Abnormal 53891-4) [facility] GLUCOSE (AUTOMATED)2021-12-18 12:58:13 Test Item Value Reference Range Interpretation Comments POCT GLU (test code = 9365483994) 364 mg/dL 70-110 H Lab Interpretation (test code = Abnormal 85321-7) [facility] GLUCOSE (AUTOMATED)2021-12-18 09:42:05 Test Item Value Reference Range Interpretation Comments POCT GLU (test code = 9634035878) 369 mg/dL 70-110 H Lab Interpretation (test code = Abnormal 42298-5) [facility] GLUCOSE (AUTOMATED)2021-12-18 05:09:33 Test Item Value Reference Range Interpretation Comments POCT GLU (test code = 4040836917) 332 mg/dL 70-110 H Lab Interpretation (test code = Abnormal 07195-7) [facility] GLUCOSE (AUTOMATED)2021-12-18 01:27:31 Test Item Value Reference Range Interpretation Comments POCT GLU (test code = 4064984668) 349 mg/dL 70-110 H Lab Interpretation (test code = Abnormal 34600-4) [facility] GLUCOSE (AUTOMATED)2021-12-17 21:42:26 Test Item Value Reference Range Interpretation Comments POCT GLU (test code = 7776292649) 372 mg/dL 70-110 H Lab Interpretation (test code = Abnormal 41914-4) [facility] GLUCOSE (AUTOMATED)2021-12-17 17:17:16 Test Item Value Reference Range Interpretation Comments POCT GLU (test code = 8642413754) 329 mg/dL 70-110 H Lab Interpretation (test code = Abnormal 42279-7) [facility] GLUCOSE (AUTOMATED)2021-12-17 14:09:34 Test Item Value Reference Range Interpretation Comments POCT GLU (test code = 8558086960) 350 mg/dL 70-110 H Lab Interpretation (test code = Abnormal 57957-0) [facility] GLUCOSE (AUTOMATED)2021-12-17 09:59:20 Test Item Value Reference Range Interpretation Comments POCT GLU (test code = 2744959168) 342 mg/dL 70-110 H Lab Interpretation (test code = Abnormal 44403-4) [facility] GLUCOSE (AUTOMATED)2021-12-17 01:46:05 Test Item Value Reference Range Interpretation Comments POCT GLU (test code = 4130336878) 318 mg/dL 70-110 H Lab Interpretation (test code = Abnormal 64819-9) [facility] GLUCOSE (AUTOMATED)2021-12-16 21:25:33 Test Item Value Reference Range Interpretation Comments POCT GLU (test code = 9426767045) 212 mg/dL 70-110 H Lab Interpretation (test code = Abnormal 02050-8) [facility] GLUCOSE (AUTOMATED)2021-12-16 16:27:52 Test Item Value Reference Range Interpretation Comments POCT GLU (test code = 8766325965) 226 mg/dL 70-110 H Lab Interpretation (test code = Abnormal 13329-4) [facility] GLUCOSE (AUTOMATED)2021-12-16 15:37:46 Test Item Value Reference Range Interpretation Comments POCT GLU (test code = 6219643675) 204 mg/dL 70-110 H Lab Interpretation (test code = Abnormal 03981-4) [facility] GLUCOSE (AUTOMATED)2021-12-16 14:39:25 Test Item Value Reference Range Interpretation Comments POCT GLU (test code = 7991512040) 185 mg/dL 70-110 H Lab Interpretation (test code = Abnormal 34220-6) [facility] Metabolic Panel (Na, K, Cl, CO2, Glucose, BUN, Creatinine, Ca)2021-12-16 14:07:03 Test Item Value Reference Range Interpretation Comments NA (test code = 137 mmol/L 135-145 5459293517) K (test code = 4.6 mmol/L 3.5-5.0 1630649161) CL (test code = 111 mmol/L 98-108 H 5844546949) CO2 TOTAL (test code = 22 mmol/L 23-31 L 5845813165) AGAP (test code = 2-16 8031423113) BUN (test code = 12 mg/dL 7-23 1517645349) GLUCOSE (test code = 181 mg/dL 70-110 H 5173040182) CREATININE (test code = 0.70 mg/dL 0.60-1.25 7939303180) CALCIUM (test code = 8.3 mg/dL 8.6-10.6 L 1115834764) eGFR (test code = mL/min/1.73m2 7941781945) ARPITA (test code = ARPITA) Association of [...] tests). Lab Interpretation Abnormal (test code = 77313-1) [facility] GLUCOSE (AUTOMATED)2021-12-16 13:45:48 Test Item Value Reference Range Interpretation Comments POCT GLU (test code = 6438399677) 170 mg/dL 70-110 H Lab Interpretation (test code = Abnormal 28196-8) [facility] GLUCOSE (AUTOMATED)2021-12-16 12:28:12 Test Item Value Reference Range Interpretation Comments POCT GLU (test code = 2725245756) 109 mg/dL 70-110 Lab Interpretation (test code = Normal 92408-6) [facility] GLUCOSE (AUTOMATED)2021-12-16 11:25:37 Test Item Value Reference Range Interpretation Comments POCT GLU (test code = 8617488747) 134 mg/dL 70-110 H Lab Interpretation (test code = Abnormal 74238-6) [facility] (Na, K, Cl, CO2, Glucose, BUN, Creatinine, Ca)2021-12-16 10:50:17 Test Item Value Reference Range Interpretation Comments NA (test code = 138 mmol/L 135-145 [id number]) K (test code = 5.1 mmol/L 3.5-5.0 H Slight [id number]) hemolysis CL (test code = 110 mmol/L 98-108 H 9606990134) CO2 TOTAL (test code 23 mmol/L 23-31 = 9398965747) AGAP (test code = 2-16 2873465406) BUN (test code = 13 mg/dL 7-23 Slight 5629470528) hemolysis GLUCOSE (test code = 131 mg/dL 70-110 H 1590506459) CREATININE (test code 0.73 mg/dL 0.60-1.25 = 8007518891) CALCIUM (test code = 8.9 mg/dL 8.6-10.6 7586241026) eGFR (test code = mL/min/1.73m2 8098666483) ARPITA (test code = ARPITA) Association of Glomerular Filtration Rate (GFR) and Staging of Kidney Disease* + -----+ --------+ +| GFR (mL/min/1.73 m2) ?| With Kidney Damage ?| ?Without Kidney Damage+ +------- +---- --+| ?>90 ?| ?Stage one ?| ? Normal ?+ ------+ ---------+--------- +| ?60-89 ?| ?Stage two ?| ? Decreased GFR ? + -----+ --------+ +| ?30-59 ?| ?Stage three ?| ? Stage three ? + -----+ --------+ +| ?15-29 ?| ?Stage four ? | ? Stage four ?+ ------+ ---------+--------- +| ?<15 (or dialysis) ? ?| ?Stage five ? | ? Stage five ?+ ------+ ---------+--------- + *Each stage assumes the associated GFR level [...] tests). Lab Interpretation Abnormal (test code = 52299-5) [facility] GLUCOSE (AUTOMATED)2021-12-16 10:35:11 Test Item Value Reference Range Interpretation Comments POCT GLU (test code = 4817505744) 125 mg/dL 70-110 H Lab Interpretation (test code = Abnormal 03940-5) [facility] GLUCOSE (AUTOMATED)2021-12-16 09:31:05 Test Item Value Reference Range Interpretation Comments POCT GLU (test code = 5164299133) 137 mg/dL 70-110 H Lab Interpretation (test code = Abnormal 71314-8) [facility] GLUCOSE (AUTOMATED)2021-12-16 08:28:48 Test Item Value Reference Range Interpretation Comments POCT GLU (test code = 0504987184) 168 mg/dL 70-110 H Lab Interpretation (test code = Abnormal 79837-5) [facility] GLUCOSE (AUTOMATED)2021-12-16 07:26:17 Test Item Value Reference Range Interpretation Comments POCT GLU (test code = 2073398661) 165 mg/dL 70-110 H Lab Interpretation (test code = Abnormal 06859-8) [facility] Metabolic Panel (Na, K, Cl, CO2, Glucose, BUN, Creatinine, Ca)2021-12-16 07:18:59 Test Item Value Reference Range Interpretation Comments NA (test code = 136 mmol/L 135-145 5859201915) K (test code = 5.1 mmol/L 3.5-5.0 H 4262768703) CL (test code = 108 mmol/L 98-108 9265852296) CO2 TOTAL (test code = 24 mmol/L 23-31 9477633534) AGAP (test code = 2-16 5884092314) BUN (test code = 14 mg/dL 7-23 1735175634) GLUCOSE (test code = 202 mg/dL 70-110 H 7033247814) CREATININE (test code = 0.79 mg/dL 0.60-1.25 2461214153) CALCIUM (test code = 8.9 mg/dL 8.6-10.6 8714391965) eGFR (test code = mL/min/1.73m2 9422229829) ARPITA (test code = ARPITA) Association of [...] tests). Lab Interpretation Abnormal (test code = 96411-8) [facility] E[facility]-[id number] 06:57:08 Test Item Value Reference Range Interpretation Comments BOH (test code = <0.1 mmol/L 9477441982) ARPITA (test code = Normal Ranges: ? ? ARPITA) Nonfasting ? Less than 0.1 mmol/L ? ? Overnight Fast ? ? ? Less than 0.4 mmol/L ? ? Fasting (1-2 weeks) ?6-8 mmol/L Test developed and characteristics determined by [facility]. [facility] GLUCOSE (AUTOMATED)2021-12-16 06:24:07 Test Item Value Reference Range Interpretation Comments POCT GLU (test code = 3605715085) 212 mg/dL 70-110 H Lab Interpretation (test code = Abnormal 75174-1) [facility] GLUCOSE (AUTOMATED)2021-12-16 05:28:19 Test Item Value Reference Range Interpretation Comments POCT GLU (test code = 9265875315) 239 mg/dL 70-110 H Lab Interpretation (test code = Abnormal 69780-7) [facility] GLUCOSE (AUTOMATED)2021-12-16 04:29:31 Test Item Value Reference Range Interpretation Comments POCT GLU (test code = 0690197977) 251 mg/dL 70-110 H Lab Interpretation (test code = Abnormal 02022-5) [facility] (Na, K, Cl, CO2, Glucose, BUN, Creatinine, Ca)2021-12-16 03:49:55 Test Item Value Reference Range Interpretation Comments NA (test code = 141 mmol/L 135-145 4905616389) K (test code = 4.2 mmol/L 3.5-5.0 7940349019) CL (test code = 108 mmol/L 98-108 1770847406) CO2 TOTAL (test code = 26 mmol/L 23-31 4446896206) AGAP (test code = 2-16 3300487853) BUN (test code = 14 mg/dL 7-23 6276001676) GLUCOSE (test code = 164 mg/dL 70-110 H 0754930407) CREATININE (test code = 0.84 mg/dL 0.60-1.25 3457411840) CALCIUM (test code = 9.3 mg/dL 8.6-10.6 7052629444) eGFR (test code = mL/min/1.73m2 7062363476) ARPITA (test code = ARPITA) Association of [...] tests). Lab Interpretation Abnormal (test code = 70610-1) [facility] GLUCOSE (AUTOMATED)2021-12-16 03:20:15 Test Item Value Reference Range Interpretation Comments POCT GLU (test code = 3117067119) 174 mg/dL 70-110 H Lab Interpretation (test code = Abnormal 76918-4) [facility] GLUCOSE (AUTOMATED)2021-12-16 02:25:54 Test Item Value Reference Range Interpretation Comments POCT GLU (test code = 2760788603) 158 mg/dL 70-110 H Lab Interpretation (test code = Abnormal 03898-8) [facility] GLUCOSE (AUTOMATED)2021-12-16 01:37:09 Test Item Value Reference Range Interpretation Comments POCT GLU (test code = 8115154171) 219 mg/dL 70-110 H Lab Interpretation (test code = Abnormal 01680-8) [facility] GLUCOSE (AUTOMATED)2021-12-16 00:19:48 Test Item Value Reference Range Interpretation Comments POCT GLU (test code = 6753453829) 345 mg/dL 70-110 H Lab Interpretation (test code = Abnormal 38031-3) [facility] GLUCOSE (AUTOMATED)2021-12-15 22:59:57 Test Item Value Reference Range Interpretation Comments POCT GLU (test code = 3837742959) 318 mg/dL 70-110 H Lab Interpretation (test code = Abnormal 99976-5) [facility] Metabolic Panel (Na, K, Cl, CO2, Glucose, BUN, Creatinine, Ca)2021-12-15 22:41:00 Test Item Value Reference Range Interpretation Comments NA (test code = 140 mmol/L 135-145 6729565276) K (test code = 3.1 mmol/L 3.5-5.0 L 4975750281) CL (test code = 116 mmol/L 98-108 H 4963467817) CO2 TOTAL (test code = 21 mmol/L 23-31 L 8025945790) AGAP (test code = 2-16 9329001443) BUN (test code = 12 mg/dL 7-23 7318490321) GLUCOSE (test code = 281 mg/dL 70-110 H 2310095739) CREATININE (test code = 0.62 mg/dL 0.60-1.25 5096561618) CALCIUM (test code = 7.2 mg/dL 8.6-10.6 L 6845170546) eGFR (test code = mL/min/1.73m2 9732964367) ARPITA (test code = ARPITA) Association of [...] tests). Lab Interpretation Abnormal (test code = 78639-2) [facility] GLUCOSE (AUTOMATED)2021-12-15 21:53:29 Test Item Value Reference Range Interpretation Comments POCT GLU (test code = 3760900988) 368 mg/dL 70-110 H Lab Interpretation (test code = Abnormal 45668-5) [facility] GLUCOSE (AUTOMATED)2021-12-15 20:41:51 Test Item Value Reference Range Interpretation Comments POCT GLU (test code = 8737651646) 458 mg/dL 70-110 HH Lab Interpretation (test code = Abnormal 99929-0) [facility] GLUCOSE (AUTOMATED)2021-12-15 19:00:13 Test Item Value Reference Range Interpretation Comments POCT GLU (test code = 7304529142) 369 mg/dL 70-110 H Lab Interpretation (test code = Abnormal 15807-1) [facility] (Na, K, Cl, CO2, Glucose, BUN, Creatinine, Ca)2021-12-15 18:32:29 Test Item Value Reference Range Interpretation Comments NA (test code = 145 mmol/L 135-145 4881450311) K (test code = 4.8 mmol/L 3.5-5.0 Slight 8525676880) hemolysis CL (test code = 112 mmol/L 98-108 H 4257994122) CO2 TOTAL (test code 26 mmol/L 23-31 = 3043478616) AGAP (test code = 2-16 3513031387) BUN (test code = 16 mg/dL 7-23 Slight 5025577332) hemolysis GLUCOSE (test code = 282 mg/dL 70-110 H 6543744185) CREATININE (test code 0.83 mg/dL 0.60-1.25 = 5216078480) CALCIUM (test code = 10.0 mg/dL 8.6-10.6 5302102833) eGFR (test code = mL/min/1.73m2 0005090754) ARPITA (test code = ARPITA) Association of Glomerular Filtration Rate (GFR) and Staging of Kidney Disease* + -----+ --------+ +| GFR (mL/min/1.73 m2) ?| With Kidney Damage ?| ?Without Kidney Damage+ +------- +---- --+| ?>90 ?| ?Stage one ?| ? Normal ?+ ------+ ---------+--------- +| ?60-89 ?| ?Stage two ?| ? Decreased GFR ? + -----+ --------+ +| ?30-59 ?| ?Stage three ?| ? Stage three ? + -----+ --------+ +| ?15-29 ?| ?Stage four ? | ? Stage four ?+ ------+ ---------+--------- +| ?<15 (or dialysis) ? ?| ?Stage five ? | ? Stage five ?+ ------+ ---------+--------- + *Each stage assumes the associated GFR level [...] tests). Lab Interpretation Abnormal (test code = 17817-3) [facility] GLUCOSE (AUTOMATED)2021-12-15 17:45:09 Test Item Value Reference Range Interpretation Comments POCT GLU (test code = 1650943418) 284 mg/dL 70-110 H Lab Interpretation (test code = Abnormal 61644-1) [facility]ahydroxy-Tovxqnmj9620-71-03 16:41:13 Test Item Value Reference Range Interpretation Comments BOH (test code = 0.9 mmol/L 6555710059) ARPITA (test code = Normal Ranges: ? ? ARPITA) Nonfasting ? Less than 0.1 mmol/L ? ? Overnight Fast ? ? ? Less than 0.4 mmol/L ? ? Fasting (1-2 weeks) ?6-8 mmol/L Test developed and characteristics determined by [facility]. [facility] GLUCOSE (AUTOMATED)2021-12-15 16:33:41 Test Item Value Reference Range Interpretation Comments POCT GLU (test code = 3396134268) 266 mg/dL 70-110 H Lab Interpretation (test code = Abnormal 93610-2) [facility] GLUCOSE (AUTOMATED)2021-12-15 15:30:41 Test Item Value Reference Range Interpretation Comments POCT GLU (test code = 1458725814) 294 mg/dL 70-110 H Lab Interpretation (test code = Abnormal 89795-8) [facility] GLUCOSE (AUTOMATED)2021-12-15 14:23:40 Test Item Value Reference Range Interpretation Comments POCT GLU (test code = 1137662782) 511 mg/dL 70-110 HH Lab Interpretation (test code = Abnormal 69041-5) [facility] WITHOUT [id number] 13:55:53 Test Item Value Reference Range Interpretation Comments WBC (test code = 6690-2) See_Comment H [A utomated message] The system [employer] generated this result transmit lester reference range : 4.20 - 10.70 10*3/?L. The reference range was not used to interpret this result as normal/abnormal . RBC (test code = 789-8) See_Comment H [Au tomated message] The system [employer] generated this result transmit lester reference range : 4.26 - 5.52 10* 6/?L. The reference r boubacar was not used to interpret this result as normal/abnormal . HGB (test code = 718-7) 16.2 g/dL 12.2-16.4 HCT (test code = 4544-3) 48.4 % 38.4-49.3 MCH (test code = 785-6) 29.1 pg 26.1-32.7 MCV (test code = 787-2) 86.9 fL 81.7-95.6 MCHC (test code = 786-4) 33.5 g/dL 31.2-35.0 PLT (test code = 777-3) See_Comment H [Au tomated message] The system [facility] [employer] generated this result transmit lester reference range : 150 - 328 10*3/?L. The reference range was not used to interpret this result as normal/abnormal . MPV (test code = 11.0 fL 9.8-13.0 07209-3) RDW-CV (test code = 14.2 % 12.1-15.4 788-0) RDW-SD (test code = 44.8 fL 38.5-51.6 82286-7) NRBC x10^3 (test code = <0.01 See_Comment [Au tomated message] 2568072626) The system [employer] generated this result transmit lester reference range : 10*3/?L. The reference range was not used to interpret this result as normal/abnormal . NRBC/100 WBC (test code See_Comment [Au tomated message] = 6882729104) The system [facility] generated this result transmit lester reference range : 0.0 - 10.0 /100 WBC s. The reference r boubacar was not used to interpret this result as normal/abnormal . IPF % (test code = 1232838100) Lab Interpretation (test Abnormal code = 37405-3) [facility] GLUCOSE (AUTOMATED)2021-12-15 13:34:21 Test Item Value Reference Range Interpretation Comments POCT GLU (test code = 0392549602) 538 mg/dL 70-110 HH Lab Interpretation (test code = Abnormal 04958-9) [facility] GLUCOSE (AUTOMATED)2021-12-15 13:30:43 Test Item Value Reference Range Interpretation Comments POCT GLU (test code = 8219749241) >600 70-110 HH Lab Interpretation (test code = Abnormal 06638-2) [facility] GLUCOSE (AUTOMATED)2021-12-15 13:30:43 Test Item Value Reference Range Interpretation Comments POCT GLU (test code = 4991866919) >600 70-110 HH Lab Interpretation (test code = Abnormal 53716-9) [facility] GLUCOSE (AUTOMATED)2021-12-15 13:30:43 Test Item Value Reference Range Interpretation Comments POCT GLU (test code = >600 70-110 HH Notifi ed Provider 8462014746) Lab Interpretation (test Abnormal code = 45161-5) [facility] GLUCOSE (AUTOMATED)2021-12-15 13:30:43 Test Item Value Reference Range Interpretation Comments POCT GLU (test code = 3923347121) >600 70-110 HH Lab Interpretation (test code = Abnormal 27564-2) [facility] GLUCOSE (AUTOMATED)2021-12-15 13:30:38 Test Item Value Reference Range Interpretation Comments POCT GLU (test code = 2611268275) >600 70-110 HH Lab Interpretation (test code = Abnormal 34224-8) [facility] GLUCOSE (AUTOMATED)2021-12-15 13:30:38 Test Item Value Reference Range Interpretation Comments POCT GLU (test code = 9427778091) >600 70-110 HH Lab Interpretation (test code = Abnormal 99510-9) [facility]landOsmolality [id number] 12:37:44 Test Item Value Reference Range Interpretation Comments OSMOLALITY (test code = See_Comment HH [Au tomated message] 2692-2) The system [employer] generated this result transmitted ref erence range: 278 - 30 5 mOsm/kg. The reference range was not used to int erpret this result as normal/abnormal . Lab Interpretation (test Abnormal code = 35482-8) [facility] Metabolic Panel (Na, K, Cl, CO2, Glucose, BUN, Creatinine, Ca)2021-12-15 12:23:35 Test Item Value Reference Range Interpretation Comments NA (test code = 145 mmol/L 135-145 4702493366) K (test code = 4.4 mmol/L 3.5-5.0 5254809293) CL (test code = 109 mmol/L 98-108 H 8945636217) CO2 TOTAL (test code = 21 mmol/L 23-31 L 7600240144) AGAP (test code = 2-16 4511639637) BUN (test code = 15 mg/dL 7-23 5152438004) GLUCOSE (test code = 753 mg/dL 70-110 HH 5130888953) CREATININE (test code = 0.79 mg/dL 0.60-1.25 7586464769) CALCIUM (test code = 10.9 mg/dL 8.6-10.6 H 7558180375) eGFR (test code = mL/min/1.73m2 6724866480) ARPITA (test code = ARPITA) Association of [...] tests). Lab Interpretation Abnormal (test code = 65527-4) [facility]2021-[facility]-15 12:14:56 Test Item Value Reference Range Interpretation Comments POCT GLU (test code = 4723860086) 564 mg/dL 70-110 HH Lab Interpretation (test code = Abnormal 78307-0) [facility]landMagnesium [id number] 12:05:40 Test Item Value Reference Range Interpretation Comments MAGNESIUM (test code = 5850332005) 2.5 mg/dL 1.7-2.4 H Lab Interpretation (test code = Abnormal 41071-6) [facility]NESIUM2022-06-03 12:05:20 Test Item Value Reference Range Interpretation Comments MAGNESIUM (test code = 0944332981) 2.5 mg/dL 1.7-2.4 H Lab Interpretation (test code = Abnormal 70250-2) [facility]landPhosphorus [id number] 12:05:20 Test Item Value Reference Range Interpretation Comments PHOSPHORUS (test code = 8723155174) 6.2 mg/dL 2.5-5.0 H Lab Interpretation (test code = Abnormal 07427-3) [facility] PANEL 21 + LACTIC [id number] 05:53:48 Test Item Value Reference Range Interpretation Comments PH (test code = 7.32-7.42 6505420338) PCO2 STEVO (test code See_Comment [Automa lester = 9303514477) message] The system which generated this result transmitted reference range : 41 - 51 mmHg. T he reference range was not used to interpret this result as normal/abnormal . PO2 STEVO (test code = See_Comment HH [Autom ated 5163542822) message] The system which generated this result transmitted reference range : 25 - 40 mmHg. T he reference range was not used to interpret this result as normal/abnormal . HCO3 STEVO (test code See_Comment L [Automa lester = 3022945934) message] The system which generated this result transmitted reference range : 24 - 28 mEq/L. The reference range was not used to interpr et this result as normal/abnormal . AC VBE(BEAKER) (test mEq/L code = 6249489084) THB STEVO (test code = 17.7 g/dL 13.5-18.0 6570082512) %O2HB STEVO (test code 93.8 % 52.0-63.0 H = 8613619783) %COHB STEVO (test code 2.1 % 0.0-1.5 H = 1050626199) %METHB STEVO (test 0.1 % 0.4-1.5 L code = 8198762333) VOL%O2 STEVO (test 23.3 % 6.0-12.0 H code = 4714380530) NA (test code = 142 mmol/L 135-145 8445837891) K+ (test code = 4.4 mmol/L 3.5-5.0 7929950637) AC CA IONZ (test 5.40 mg/dL 4.50-5.30 H code = 2306400879) GLUCOSE (test code = <20 70-110 LL 5756691946) LACTIC ACID (test 3.37 mmol/L 0.50-2.20 H code = 3844241082) ARPITA (test code = *ac gluc ARPITA) unmeasurable Lab Interpretation Abnormal (test code = 20467-5) [facility] (56449[facility]2021-[facility]-15 04:59:53 Test Item Value Reference Range Interpretation Comments NA (test code = 140 mmol/L 135-145 4742698667) K (test code = 4.8 mmol/L 3.5-5.0 8483729017) CL (test code = 100 mmol/L 98-108 0448430427) CO2 TOTAL (test code = 20 mmol/L 23-31 L 4193470304) AGAP (test code = 2-16 H 1327779257) BUN (test code = 14 mg/dL 7-23 8362930556) GLUCOSE (test code = 1083 mg/dL 70-110 HH 0714457166) CREATININE (test code = 0.80 mg/dL 0.60-1.25 7047370660) TOTAL BILI (test code = 1.0 mg/dL 0.1-1.0 9494309033) CALCIUM (test code = 12.0 mg/dL 8.6-10.6 H 2223783520) T PROTEIN (test code = 8.1 g/dL 6.3-8.2 7053148334) ALBUMIN (test code = 4.7 g/dL 3.5-5.0 9149271798) ALK PHOS (test code = 173 U/L 34-122 H 2636472506) ALTv (test code = 36 U/L 5-50 2-6) AST(SGOT) (test code = 18 U/L 13-40 5749941872) eGFR (test code = mL/min/1.73m2 8460633988) ARPITA (test code = ARPITA) Association of [...] tests). Lab Interpretation Abnormal (test code = 10999-6) [facility]landFAROOQ [id number] 03:51:43 Test Item Value Reference Interpretation Comments Range TROPONIN I (test <0.012 See_Comment [Automated code = 0663362738) message] The system which generated this result transmitted reference range : <=0.034 ng/mL. The reference range was not used to interpret this result as normal/abnormal . ARPITA (test code = Reference (Normal) ARPITA) Range (defined by the 99th percentile reference limit): <= 0.034 ng/mL Note: Cardiac troponin begins to rise 3-4 hours after the onset of ischemia. Repeat in 4-6 hours if the sample was drawn within 3-4 hours of the onset of the symptom and found normal. Diagnosis of myocardial injury is made with acute changes in cTn concentrations with at least one serial sample above the 99th percentile upper reference limit (URL), taken together with the patient's clinical presentation. Biotin has been reported to cause a negative bias, interpret results relative to patient's use of biotin. Lab Interpretation Normal (test code = 89903-3) [facility]landN-TERMINAL [id number] 03:48:23 Test Item Value Reference Range Interpretation Comments NT-proBNP (test code 71 pg/mL See_Comment [Autom ated = 4141850175) message] The system which generated this result transmitted reference range : <=125. The reference range was not used to interpret this result as normal/abnormal . ARPITA (test code = ARPITA) Biotin has been reported to cause a negative bias, interpret results relative to patient's use of biotin. Lab Interpretation Normal (test code = 71064-9) [facility]landLIPASE2022-06-03 03:39:44 Test Item Value Reference Range Interpretation Comments LIPASE (test code = 8220310591) 120 U/L 0-220 Lab Interpretation (test code = Normal 99376-3) [facility]landACTIVATED PARTIAL THRMPLAS [id number] 03:38:23 Test Item Value Reference Range Interpretation Comments APTT Patient (test See_Comment [Automat ed code = 3173-2) message] The system which generated this result transmitted reference range : 23 - 38 Seconds . The reference range was not used to interpr et this result as normal/abnormal . ARPITA (test code = ARPITA) [facility] mean normal value for aPTT is 30 seconds. Lab Interpretation Normal (test code = 07621-2) [facility] PearlandPROTHROMBIN TIME / [id number] 03:36:22 Test Item Value Reference Range Interpretation Comments PROTIME PATIENT (test See_Comment [Auto mated message] code = 5964-2) The system wh ich generated this result transmitted ref erence range: 12.0 - 1 4.7 Seconds. The re ference range was not u sed to interpret this result as normal/abnor mal. INR (test code = 6301-6) Nor mal INR <1.1; Warfarin Therap eutic range 2.0 to 3. 0 or 2.5 to 3.5, dep ending upon the indica tions. Lab Interpretation (test Normal code = 89349-3) [facility] WITH [id number] 03:35:42 Test Item Value Reference Range Interpretation Comments WBC (test code = See_Comment H [Automated 4090-2) message] The system which generated this result [...] as normal/abnormal . HGB (test code = 17.8 g/dL 12.2-16.4 H 718-7) HCT (test code = 51.7 % 38.4-49.3 H 4544-3) MCV (test code = 86.9 fL 81.7-95.6 787-2) MCH (test code = 29.9 pg 26.1-32.7 785-6) MCHC (test code = 34.4 g/dL 31.2-35.0 786-4) RDW-SD (test code = 44.7 fL 38.5-51.6 49973-4) RDW-CV (test code = 14.2 % 12.1-15.4 788-0) PLT (test code = See_Comment H [Automated 777-3) message] The system which generated this result transmit lester reference range : 150 - 328 10*3/ ?L. The reference range was not u sed to interpret th is result as normal/abnormal . MPV (test code = 11.5 fL 9.8-13.0 75552-3) NRBC/100 WBC (test See_Comment [Automat ed code = 0021060913) message] The system which generated this result transmit lester reference range : 0.0 - 10.0 /100 WBCs. The reference range was not used to interpret this result as normal/abnormal . NRBC x10^3 (test code <0.01 See_Comment [Auto mated = 2798371023) message] The system which generated this result transmit lester reference range : 10*3/?L. The reference range was not used to interpret this result as normal/abnormal . GRAN MAT (NEUT) % 85.2 % (test code = 770-8) IMM GRAN % (test code 0.90 % = 8144505083) LYMPH % (test code = 5.9 % 736-9) MONO % (test code = 7.8 % 5905-5) EOS % (test code = 0.0 % 713-8) BASO % (test code = 0.2 % 706-2) GRAN MAT x10^3(ANC) 12.85 10*3/uL 1.99-6.95 H (test code = 1458480814) IMM GRAN x10^3 (test 0.13 10*3/uL 0.00-0.06 H code = 6847867122) LYMPH x10^3 (test code 0.89 10*3/uL 1.09-3.23 L = 731-0) MONO x10^3 (test code 1.17 10*3/uL 0.36-1.02 H = 742-7) EOS x10^3 (test code = <0.03 0.06-0.53 L 711-2) BASO x10^3 (test code 0.03 10*3/uL 0.01-0.09 = 704-7) Lab Interpretation Abnormal (test code = 72105-7) [facility] PearlandLactic Acid Whole [id number] 03:22:23 Test Item Value Reference Range Interpretation Comments LACTIC ACID (test code = 4.52 mmol/L 0.50-2.20 H 1298496318) Lab Interpretation (test code = Abnormal 08890-4) [facility] (NA, K, CL, CO2, GLUCOSE, BUN, CREATININE, CA)2021-11-28 11:13:09 Test Item Value Reference Range Interpretation Comments NA (test code = 137 mmol/L 135-145 8115366320) K (test code = 4.8 mmol/L 3.5-5.0 7440410872) CL (test code = 101 mmol/L 98-108 2929017400) CO2 TOTAL (test code = 24 mmol/L 23-31 7445576141) AGAP (test code = 2-16 9862772455) BUN (test code = 17 mg/dL 7-23 3001449395) GLUCOSE (test code = 323 mg/dL 70-110 H 3361072943) CREATININE (test code = 0.56 mg/dL 0.60-1.25 L 7663414339) CALCIUM (test code = 9.6 mg/dL 8.6-10.6 0655929961) eGFR (test code = mL/min/1.73m2 0577492781) ARPITA (test code = ARPITA) Association of [...] tests). Lab Interpretation Abnormal (test code = 40013-9) [facility] WITH [id number] 10:49:07 Test Item Value Reference Range Interpretation Comments [...] as normal/abnormal . HGB (test code = 15.6 g/dL 12.2-16.4 718-7) HCT (test code = 46.6 % 38.4-49.3 4544-3) MCV (test code = 88.3 fL 81.7-95.6 787-2) MCH (test code = 29.5 pg 26.1-32.7 785-6) MCHC (test code = 33.5 g/dL 31.2-35.0 786-4) RDW-SD (test code = 46.7 fL 38.5-51.6 51475-0) RDW-CV (test code = 14.5 % 12.1-15.4 788-0) PLT (test code = See_Comment H [Automated 777-3) message] The sy stem which generated this result transmitted reference range : 150 - 328 10*3/ ?L. The reference r boubacar was not used to interpret this result as normal/abnormal . MPV (test code = 10.2 fL 9.8-13.0 56611-9) NRBC/100 WBC (test See_Comment [Automat ed code = 6412816520) message] The system which generated this result transmitted reference range : 0.0 - 10.0 /100 WBCs. The refer ence range was not u sed to interpret th is result as normal/abnormal . NRBC x10^3 (test code <0.01 See_Comment [Auto mated = 1560118626) message] The s ystem which generated this result transmitted reference range : 10*3/?L. The reference range was not used to interpret this result as normal/abnormal . GRAN MAT (NEUT) % 70.2 % (test code = 770-8) IMM GRAN % (test code 0.80 % = 1154068548) LYMPH % (test code = 18.0 % 736-9) MONO % (test code = 8.5 % 5905-5) EOS % (test code = 2.1 % 713-8) BASO % (test code = 0.4 % 706-2) GRAN MAT x10^3(ANC) 7.63 10*3/uL 1.99-6.95 H (test code = 0906662615) IMM GRAN x10^3 (test 0.09 10*3/uL 0.00-0.06 H code = 4321985880) LYMPH x10^3 (test code 1.96 10*3/uL 1.09-3.23 = 731-0) MONO x10^3 (test code 0.92 10*3/uL 0.36-1.02 = 742-7) EOS x10^3 (test code = 0.23 10*3/uL 0.06-0.53 711-2) BASO x10^3 (test code 0.04 10*3/uL 0.01-0.09 = 704-7) Lab Interpretation Abnormal (test code = 32477-1) [facility] (NA, K, CL, CO2, GLUCOSE, BUN, CREATININE, CA)2021-11-27 09:48:58 Test Item Value Reference Range Interpretation Comments NA (test code = 135 mmol/L 135-145 8312188266) K (test code = 4.7 mmol/L 3.5-5.0 6387936788) CL (test code = 101 mmol/L 98-108 8235901477) CO2 TOTAL (test code = 23 mmol/L 23-31 2648371687) AGAP (test code = 2-16 0251423028) BUN (test code = 18 mg/dL 7-23 1495005099) GLUCOSE (test code = 346 mg/dL 70-110 H 6063209497) CREATININE (test code = 0.64 mg/dL 0.60-1.25 7711779768) CALCIUM (test code = 9.1 mg/dL 8.6-10.6 8516290322) eGFR (test code = mL/min/1.73m2 7786232390) ARPITA (test code = ARPITA) Association of [...] tests). Lab Interpretation Abnormal (test code = 22099-1) [facility] WITH [id number] 09:06:55 Test Item Value Reference Range Interpretation Comments WBC (test code = See_Comment [Automated 2731-2) message] The sy stem which generated this result transmitted reference range : 4.20 - 10.70 10*3/?L. The reference range was not used to interpret this result as normal/abnormal . RBC (test code = See_Comment [Automated 703-8) message] The sy stem which generated this result transmitted reference range : 4.26 - 5.52 10*6/?L. The reference range was not used to interpret this result as normal/abnormal . HGB (test code = 15.0 g/dL 12.2-16.4 718-7) HCT (test code = 44.8 % 38.4-49.3 4544-3) MCV (test code = 88.2 fL 81.7-95.6 787-2) MCH (test code = 29.5 pg 26.1-32.7 785-6) MCHC (test code = 33.5 g/dL 31.2-35.0 786-4) RDW-SD (test code = 47.7 fL 38.5-51.6 74099-7) RDW-CV (test code = 14.6 % 12.1-15.4 788-0) PLT (test code = See_Comment [Automated 777-3) message] The sy stem which generated this result transmitted reference range : 150 - 328 10*3/ ?L. The reference r boubacar was not used to interpret this result as normal/abnormal . MPV (test code = 9.9 fL 9.8-13.0 71760-9) NRBC/100 WBC (test See_Comment [Automat ed code = 6994782138) message] The system which generated this result transmitted reference range : 0.0 - 10.0 /100 WBCs. The refer ence range was not u sed to interpret th is result as normal/abnormal . NRBC x10^3 (test code <0.01 See_Comment [Auto mated = 2380444077) message] The s ystem which generated this result transmitted reference range : 10*3/?L. The reference range was not used to interpret this result as normal/abnormal . GRAN MAT (NEUT) % 62.6 % (test code = 770-8) IMM GRAN % (test code 1.30 % = 6418761197) LYMPH % (test code = 23.2 % 736-9) MONO % (test code = 9.6 % 5905-5) EOS % (test code = 2.9 % 713-8) BASO % (test code = 0.4 % 706-2) GRAN MAT x10^3(ANC) 5.85 10*3/uL 1.99-6.95 (test code = 2039961077) IMM GRAN x10^3 (test 0.12 10*3/uL 0.00-0.06 H code = 3978714025) LYMPH x10^3 (test code 2.17 10*3/uL 1.09-3.23 = 731-0) MONO x10^3 (test code 0.90 10*3/uL 0.36-1.02 = 742-7) EOS x10^3 (test code = 0.27 10*3/uL 0.06-0.53 711-2) BASO x10^3 (test code 0.04 10*3/uL 0.01-0.09 = 704-7) Lab Interpretation Abnormal (test code = 45496-2) [facility] CULTURE [id number] 02:01:46 Test Item Value Reference Range Interpretation Comments Blood Culture-Aerobic No organisms No growth Previo us (test code = 59866-7) isolated prelim inary verified result was Culture In Progress on 11/22/2021 at 00 01 CDTPrevious preliminary verified result was No growth a t 24 hours on 11/22/2021 at 21 01 CDTPrevious preliminary verified result was No growth a t 48 hours on 11/23/2021 at 21 01 CDTPrevious preliminary verified result was No growth a t 72 hours on 11/24/2021 at 21 01 CDT Blood No organisms No growth Previous Culture-Anaerobic isolated preliminar y (test code = 13006-1) verifi ed result was Culture In Progress on 11/22/2021 at 00 01 CDTPrevious preliminary verified result was No growth a t 24 hours on 11/22/2021 at 21 01 CDTPrevious preliminary verified result was No growth a t 48 hours on 11/23/2021 at 21 01 CDTPrevious preliminary verified result was No growth a t 72 hours on 11/24/2021 at 21 01 CDT Lab Interpretation Normal (test code = 34740-3) [facility] CULTURE [id number] 02:01:46 Test Item Value Reference Range Interpretation Comments Blood Culture-Aerobic No organisms No growth Previo us (test code = 70247-5) isolated prelim inary verified result was Culture In Progress on 11/22/2021 at 00 01 CDTPrevious preliminary verified result was No growth a t 24 hours on 11/22/2021 at 21 01 CDTPrevious preliminary verified result was No growth a t 48 hours on 11/23/2021 at 21 01 CDTPrevious preliminary verified result was No growth a t 72 hours on 11/24/2021 at 21 01 CDT Blood No organisms No growth Previous Culture-Anaerobic isolated preliminar y (test code = 93271-2) verifi ed result was Culture In Progress on 11/22/2021 at 00 01 CDTPrevious preliminary verified result was No growth a t 24 hours on 11/22/2021 at 21 01 CDTPrevious preliminary verified result was No growth a t 48 hours on 11/23/2021 at 21 01 CDTPrevious preliminary verified result was No growth a t 72 hours on 11/24/2021 at 21 01 CDT Lab Interpretation Normal (test code = 01613-4) [facility] [id number] 12:18:49 Test Item Value Reference Range Interpretation Comments NT-proBNP (test code 117 pg/mL See_Comment [Autom ated = 9634528309) message] The system which generated this result transmitted reference range : <=125. The reference range was not used to interpret this result as normal/abnormal . ARPITA (test code = ARPITA) Biotin has been reported to cause a negative bias, interpret results relative to patient's use of biotin. Lab Interpretation Normal (test code = 43690-2) [facility] ([id number])2021-11-24 12:10:25 Test Item Value Reference Range Interpretation Comments NA (test code = 137 mmol/L 135-145 2008316527) K (test code = 4.6 mmol/L 3.5-5.0 5139691170) CL (test code = 108 mmol/L 98-108 9063123992) CO2 TOTAL (test code = 20 mmol/L 23-31 L 4168946402) AGAP (test code = 2-16 9815740994) BUN (test code = 12 mg/dL 7-23 8876718894) GLUCOSE (test code = 186 mg/dL 70-110 H 6726116121) CREATININE (test code = 0.49 mg/dL 0.60-1.25 L 5272373647) TOTAL BILI (test code = 0.7 mg/dL 0.1-1.6 7973728146) CALCIUM (test code = 8.7 mg/dL 8.6-10.6 4779535532) T PROTEIN (test code = 6.9 g/dL 6.3-8.2 9230696843) ALBUMIN (test code = 3.7 g/dL 3.5-5.0 8298421724) ALK PHOS (test code = 114 U/L 34-122 7966616435) ALTv (test code = 75 U/L 5-50 H 1741-) AST(SGOT) (test code = 27 U/L 13-40 8543201730) eGFR (test code = mL/min/1.73m2 5394825298) ARPITA (test code = ARPITA) Association of [...] tests). Lab Interpretation Abnormal (test code = 37242-5) [facility] WITH [id number] 11:14:25 Test Item Value Reference Range Interpretation Comments [...] as normal/abnormal . HGB (test code = 14.8 g/dL 12.2-16.4 718-7) HCT (test code = 44.8 % 38.4-49.3 4544-3) MCV (test code = 89.1 fL 81.7-95.6 787-2) MCH (test code = 29.4 pg 26.1-32.7 785-6) MCHC (test code = 33.0 g/dL 31.2-35.0 786-4) RDW-SD (test code = 48.7 fL 38.5-51.6 96035-7) RDW-CV (test code = 15.0 % 12.1-15.4 788-0) PLT (test code = See_Comment [Automated 777-3) message] The sy stem which generated this result transmitted reference range : 150 - 328 10*3/ ?L. The reference r boubacar was not used to interpret this result as normal/abnormal . MPV (test code = 10.4 fL 9.8-13.0 80935-5) NRBC/100 WBC (test See_Comment [Automat ed code = 9299669113) message] The system which generated this result transmitted reference range : 0.0 - 10.0 /100 WBCs. The refer ence range was not u sed to interpret th is result as normal/abnormal . NRBC x10^3 (test code <0.01 See_Comment [Auto mated = 8451312950) message] The s ystem which generated this result transmitted reference range : 10*3/?L. The reference range was not used to interpret this result as normal/abnormal . GRAN MAT (NEUT) % 65.5 % (test code = 770-8) IMM GRAN % (test code 0.80 % = 4963390810) LYMPH % (test code = 20.9 % 736-9) MONO % (test code = 9.7 % 5905-5) EOS % (test code = 2.7 % 713-8) BASO % (test code = 0.4 % 706-2) GRAN MAT x10^3(ANC) 5.41 10*3/uL 1.99-6.95 (test code = 9820725556) IMM GRAN x10^3 (test 0.07 10*3/uL 0.00-0.06 H code = 7967000664) LYMPH x10^3 (test code 1.73 10*3/uL 1.09-3.23 = 731-0) MONO x10^3 (test code 0.80 10*3/uL 0.36-1.02 = 742-7) EOS x10^3 (test code = 0.22 10*3/uL 0.06-0.53 711-2) BASO x10^3 (test code 0.03 10*3/uL 0.01-0.09 = 704-7) Lab Interpretation Abnormal (test code = 11255-7) [facility] [id number] 13:16:44 Test Item Value Reference Range Interpretation Comments NT-proBNP (test code 157 pg/mL See_Comment H [Autom ated = 8180808382) message] The system which generated this result transmitted reference range : <=125. The reference range was not used to interpret this result as normal/abnormal . ARPITA (test code = ARPITA) Biotin has been reported to cause a negative bias, interpret results relative to patient's use of biotin. Lab Interpretation Abnormal (test code = 97377-2) [facility] ([id number])2021-11-23 13:08:45 Test Item Value Reference Range Interpretation Comments NA (test code = 141 mmol/L 135-145 0241288038) K (test code = 4.2 mmol/L 3.5-5.0 3537348322) CL (test code = 110 mmol/L 98-108 H 9339942771) CO2 TOTAL (test code = 24 mmol/L 23-31 2024702801) AGAP (test code = 2-16 7234214657) BUN (test code = 11 mg/dL 7-23 5959483266) GLUCOSE (test code = 142 mg/dL 70-110 H 1708231367) CREATININE (test code = 0.61 mg/dL 0.60-1.25 8333138578) TOTAL BILI (test code = 0.7 mg/dL 0.1-1.2 9082687633) CALCIUM (test code = 8.5 mg/dL 8.6-10.6 L 5968918968) T PROTEIN (test code = 6.7 g/dL 6.3-8.2 8312517727) ALBUMIN (test code = 3.6 g/dL 3.5-5.0 6050879968) ALK PHOS (test code = 120 U/L 34-122 4834799758) ALTv (test code = 88 U/L 5-50 H 1742-6) AST(SGOT) (test code = 27 U/L 13-40 7563847555) eGFR (test code = mL/min/1.73m2 4574905582) ARPITA (test code = ARPITA) Association of [...] tests). Lab Interpretation Abnormal (test code = 54382-1) [facility] 13:08:45 Test Item Value Reference Range Interpretation Comments MAGNESIUM (test code = 8008857923) 1.7 mg/dL 1.7-2.4 Lab Interpretation (test code = Normal 22350-0) [facility] WITH [id number] 11:57:56 Test Item Value Reference Range Interpretation Comments WBC (test code = See_Comment [Automated 0590-2) message] The sy stem which generated this result transmitted reference range : 4.20 - 10.70 10*3/?L. The reference range was not used to interpret this result as normal/abnormal . RBC (test code = See_Comment [Automated 249-8) message] The sy stem which generated this result transmitted reference range : 4.26 - 5.52 10*6/?L. The reference range was not used to interpret this result as normal/abnormal . HGB (test code = 14.6 g/dL 12.2-16.4 718-7) HCT (test code = 43.5 % 38.4-49.3 4544-3) MCV (test code = 88.4 fL 81.7-95.6 787-2) MCH (test code = 29.7 pg 26.1-32.7 785-6) MCHC (test code = 33.6 g/dL 31.2-35.0 786-4) RDW-SD (test code = 48.9 fL 38.5-51.6 91679-2) RDW-CV (test code = 14.9 % 12.1-15.4 788-0) PLT (test code = See_Comment [Automated 777-3) message] The sy stem which generated this result transmitted reference range : 150 - 328 10*3/ ?L. The reference r boubacar was not used to interpret this result as normal/abnormal . MPV (test code = 9.4 fL 9.8-13.0 L 93857-8) NRBC/100 WBC (test See_Comment [Automat ed code = 5538206444) message] The system which generated this result transmitted reference range : 0.0 - 10.0 /100 WBCs. The refer ence range was not u sed to interpret th is result as normal/abnormal . NRBC x10^3 (test code <0.01 See_Comment [Auto mated = 7959671365) message] The s ystem which generated this result transmitted reference range : 10*3/?L. The reference range was not used to interpret this result as normal/abnormal . GRAN MAT (NEUT) % 63.9 % (test code = 770-8) IMM GRAN % (test code 0.70 % = 1043011347) LYMPH % (test code = 22.7 % 736-9) MONO % (test code = 9.6 % 5905-5) EOS % (test code = 2.7 % 713-8) BASO % (test code = 0.4 % 706-2) GRAN MAT x10^3(ANC) 4.75 10*3/uL 1.99-6.95 (test code = 5131417560) IMM GRAN x10^3 (test 0.05 10*3/uL 0.00-0.06 code = 1707114091) LYMPH x10^3 (test code 1.69 10*3/uL 1.09-3.23 = 731-0) MONO x10^3 (test code 0.71 10*3/uL 0.36-1.02 = 742-7) EOS x10^3 (test code = 0.20 10*3/uL 0.06-0.53 711-2) BASO x10^3 (test code 0.03 10*3/uL 0.01-0.09 = 704-7) Lab Interpretation Abnormal (test code = 69252-0) [facility], [id number] 19:18:39 Test Item Value Reference Range Interpretation Comments VIT B12 (test code = 249 pg/mL 240-930 7465324277) ARPITA (test code = ARPITA) Biotin has been reported to cause a positive bias, interpret results relative to patient's use of biotin. Lab Interpretation (test Normal code = 90583-9) [facility] D, [id number] 17:30:28 Test Item Value Reference Range Interpretation Comments VIT D 25OH (test code = 16 ng/mL 25-80 L 89103-7) ARPITA (test code = ARPITA) Deficiency: <20 ng/mLInsufficiency: 20-24 ng/mLOptimal: 25-80 ng/mL Lab Interpretation (test Abnormal code = 32117-9) [facility]AL[facility]IN2022-05-11 16:07:32 Test Item Value Reference Range Interpretation Comments Procalcitonin (test 0.04 ng/mL <0.07 code = 9218095323) ARPITA (test code = ARPITA) INTERPRETATION OF PROCALCITONIN RESULTS IN ADULTS >= 18 YEARS OF AGE Initiation and discontinuation of antibiotics on patients with suspected or confirmed Lower Respiratory Tract Infection in Adults >= 18 years of age. + +-------- --------+ + -----+|Procalcitonin |Interpretation ?|Antibiotic ? ? |Considerations ? |ng/mL ? | ?|recommendation | ? + +-------- --------+ + -----+| <0.1 ? | Bacterial ? ? ?| Strongly ? ? ?| ? | ?| infection very | discouraged ? | Overruling: ? | ?| unlikely ? ? ? | ? | ? Clinically unstable ? ? ? + +-------- --------+ + ? High risk for adverse ? ? | <0.25 ?| Bacterial ? ? ?| Discouraged ? | ? outcome ? | ?| infection ? ? ?| ? | ? SEE IMPORTANT NOTE ?| ?| unlikely ? ? ? | ? | ? + +-------- --------+ + -----+| >=0.25 ? ? ? | Bacterial ? ? ?| Encouraged ? ?| ? | ?| infection ? ? ?| ? | ? | ?| likely ? | ? | Consider treatment failure ?+ +------- ---------+ -+ if levels does not decrease | >0.5 ? | Bacterial ? ? ?| Strongly ? ? ?| appropriately ? | ?| infection very | encouraged ? ?| ? | ?| likely ? | ? | ? + +-------- --------+ + -----+ Discontinuation of antibiotics in high-acuity patients with suspected or confirmed sepsis in Adults >= 18 years of age. + +-------- --------+ + -----+|Procalcitonin |Interpretation ?|Antibiotic ? ? |Considerations ? |ng/mL ? | ?|recommendation | ? + +-------- --------+ + -----+| <0.25 ?| Bacterial ? ? ?| Strongly ? ? ?| ? | ?| infection very | discouraged ? | Overruling: ? | ?| unlikely ? ? ? | ? | ? Clinically unstable ? ? ? + +-------- --------+ + ? High risk for adverse ? ? | <0.5 or drop | Bacterial ? ? ?| Discouraged ? | ? outcome ? | >80% from ? ?| infection ? ? ?| ? | ? SEE IMPORTANT NOTE ?| highest PCT ?| unlikely ? ? ? | ? | ? | level ?| ?| ? | ? + +-------- --------+ + -----+| >=0.5 ?| Bacterial ? ? ?| Encouraged ? ?| ? | ?| infection ? ? ?| ? | ? | ?| likely ? | ? | Consider treatment failure ?+ +------- ---------+ -+ if levels does not decrease | >1.0 ? | Bacterial ? ? ?| Strongly ? ? ?| appropriately ? | ?| infection very | encouraged ? ?| ? | ?| likely ? | ? | ? + +-------- --------+ + -----+ Percentage of drop of Procalcitonin calculation for Discontinuation of antibiotics in high-acuity patients with suspected or confirmed sepsis in Adults >= 18 years of age. ? Procalcitonin highest{}-Procalcitonin current{}Delta Procalcitonin = x100% ? Procalcitonin current {} IMPORTANT NOTE: Procalcitonin may be elevated without bacterial infection by physiologic stress related to trauma, rajan, chronic dialysis, metastatic cancer, surgery in the past seven days, malaria, some fungal infections, and some forms of vasculitis. The interpretation algorithm may not apply to patients with immunosuppression (equivalent of >10 mg of prednisone daily), HIV with CD4 cell count < 350 cells/mm3, active malignancy on systemic chemotherapy, solid organ transplant or hematopoietic stem cell transplantation, or hospital acquired pneumonia. Additionally, some clinical trials of procalcitonin have excluded patients with shock requiring vasopressor use, acute respiratory failure requiring mechanical ventilation, or those with known lung abscess/empyema. For further information please refer to:[email or web address] Lab Interpretation Normal (test code = 28336-5) [facility]landSEDIMENTATION [id number] 13:21:10 Test Item Value Reference Range Interpretation Comments ESR (test code = See_Comment H [Automated message] 8906366683) The system [employer] generated this result transmitted ref erence range: 0 - 10 m m/HR. The reference r boubacar was not used to interpret this result as normal/abnor mal. Lab Interpretation (test Abnormal code = 30388-6) [facility]landGLYCOSYLATED HEMOGLOBIN (A1C)2021-11-22 13:12:27 Test Item Value Reference Range Interpretation Comments HGB A1C (test code = 6.3 % 4.0-5.7 H 4548-4) ARPITA (test code = ARPITA) Reference RangesNormal: <5.7%Prediabetes: 5.7 - 6.4%Diabetes: > 6.5% Lab Interpretation (test Abnormal code = 90314-8) [facility] [id number] 11:53:14 Test Item Value Reference Range Interpretation Comments NT-proBNP (test code 16 pg/mL See_Comment [Autom ated = 4410976374) message] The system which generated this result transmitted reference range : <=125. The reference range was not used to interpret this result as normal/abnormal . ARPITA (test code = ARPITA) Biotin has been reported to cause a negative bias, interpret results relative to patient's use of biotin. Lab Interpretation Normal (test code = 20216-3) [facility] METABOLIC PANEL (23681)2021-11-22 11:44:55 Test Item Value Reference Range Interpretation Comments NA (test code = 142 mmol/L 135-145 9651168722) K (test code = 3.9 mmol/L 3.5-5.0 6772666455) CL (test code = 108 mmol/L 98-108 7097687448) CO2 TOTAL (test code = 24 mmol/L 23-31 2204853190) AGAP (test code = 2-16 5675100701) BUN (test code = 11 mg/dL 7-23 9402650755) GLUCOSE (test code = 205 mg/dL 70-110 H 8569501333) CREATININE (test code = 0.71 mg/dL 0.60-1.25 9423264731) TOTAL BILI (test code = 0.7 mg/dL 0.1-1.2 0411076226) CALCIUM (test code = 8.9 mg/dL 8.6-10.6 8866049436) T PROTEIN (test code = 7.3 g/dL 6.3-8.2 0424128554) ALBUMIN (test code = 3.8 g/dL 3.5-5.0 7736738851) ALK PHOS (test code = 135 U/L 34-122 H 6586432366) ALTv (test code = 120 U/L 5-50 H 1742-6) AST(SGOT) (test code = 33 U/L 13-40 8388157297) eGFR (test code = mL/min/1.73m2 6938931925) ARPITA (test code = ARPITA) Association of [...] tests). Lab Interpretation Abnormal (test code = 93764-2) [facility]2022-[facility]-11 11:44:55 Test Item Value Reference Range Interpretation Comments MAGNESIUM (test code = 2030982262) 1.6 mg/dL 1.7-2.4 L Lab Interpretation (test code = Abnormal 77841-7) [facility]PHOSPHORUS2022-05-11 11:44:35 Test Item Value Reference Range Interpretation Comments PHOSPHORUS (test code = 4188074632) 4.1 mg/dL 2.5-5.0 Lab Interpretation (test code = Normal 18184-2) [facility]landCREATINE [id number] 11:44:15 Test Item Value Reference Range Interpretation Comments CK (test code = 3939013270) 50 U/L 33-194 Lab Interpretation (test code = Normal 81267-1) [facility]landCB WITH [id number] 11:28:14 Test Item Value Reference Range Interpretation Comments WBC (test code = See_Comment [Automated 1290-2) message] The sy stem which generated this [...] as normal/abnormal . HGB (test code = 15.0 g/dL 12.2-16.4 718-7) HCT (test code = 44.6 % 38.4-49.3 4544-3) MCV (test code = 87.6 fL 81.7-95.6 787-2) MCH (test code = 29.5 pg 26.1-32.7 785-6) MCHC (test code = 33.6 g/dL 31.2-35.0 786-4) RDW-SD (test code = 48.4 fL 38.5-51.6 20021-1) RDW-CV (test code = 15.1 % 12.1-15.4 788-0) PLT (test code = See_Comment [Automated 777-3) message] The sy stem which generated this result transmitted reference range : 150 - 328 10*3/ ?L. The reference r boubacar was not used to interpret this result as normal/abnormal . MPV (test code = 10.2 fL 9.8-13.0 63392-2) NRBC/100 WBC (test See_Comment [Automat ed code = 7143078086) message] The system which generated this result transmitted reference range : 0.0 - 10.0 /100 WBCs. The refer ence range was not u sed to interpret th is result as normal/abnormal . NRBC x10^3 (test code <0.01 See_Comment [Auto mated = 2721961896) message] The s ystem which generated this result transmitted reference range : 10*3/?L. The reference range was not used to interpret this result as normal/abnormal . GRAN MAT (NEUT) % 67.8 % (test code = 770-8) IMM GRAN % (test code 0.80 % = 8496567857) LYMPH % (test code = 19.8 % 736-9) MONO % (test code = 8.7 % 5905-5) EOS % (test code = 2.7 % 713-8) BASO % (test code = 0.2 % 706-2) GRAN MAT x10^3(ANC) 6.56 10*3/uL 1.99-6.95 (test code = 4565271450) IMM GRAN x10^3 (test 0.08 10*3/uL 0.00-0.06 H code = 3423720276) LYMPH x10^3 (test code 1.91 10*3/uL 1.09-3.23 = 731-0) MONO x10^3 (test code 0.84 10*3/uL 0.36-1.02 = 742-7) EOS x10^3 (test code = 0.26 10*3/uL 0.06-0.53 711-2) BASO x10^3 (test code <0.03 0.01-0.09 = 704-7) Lab Interpretation Abnormal (test code = 85827-9) [facility]landIRON [id number] 10:56:10 Test Item Value Reference Range Interpretation Comments IRON (test code = 3377750762) 46 ug/dL 50-160 L TIBC (test code = 7987502776) 299 ug/dL 250-410 % FE SAT (test code = 3122003627) 15 % 20-50 L Lab Interpretation (test code = Abnormal 39691-7) [facility]landFERRITIN [id number] 10:13:03 Test Item Value Reference Range Interpretation Comments FERRITIN (test code = 89.2 ng/mL 18.0-464.0 0823026951) ARPITA (test code = ARPITA) Biotin has been reported to cause a negative bias, interpret results relative to patient's use of biotin. Lab Interpretation (test Normal code = 04929-9) [facility]landTHYROID STIMULATING [id number] 10:09:06 Test Item Value Reference Range Interpretation Comments TSH (test code = See_Comment [Automated message] 8020989026) The system [employer] generated this result transmitted ref erence range: 0.45 - 4 .70 mIU/L. The refe rence range was not u sed to interpret this result as normal/abnor mal. Lab Interpretation (test Normal code = 66878-2) [facility] [facility] [id number] 09:47:44 Test Item Value Reference Range Interpretation Comments NT-proBNP (test code 12 pg/mL See_Comment [Autom ated = [id number]) message] The system which generated this result transmitted reference range : <=125. The reference range was not used to interpret this result as normal/abnormal . ARPITA (test code = ARPITA) Biotin has been reported to cause a negative bias, interpret results relative to patient's use of biotin. Lab Interpretation Normal (test code = 31265-9) [facility][id number][facility]TOTAL CHOLESTEROL, TRIGLYCERIDES, HDL)2021-11-22 09:35:58 Test Item Value Reference Range Interpretation Comments CHOL (test code = 250 mg/dL 120-200 H 0720423561) HDL (test code = 34 mg/dL >40 L 2884627358) HDLC RATIO (test code = See_Comment H [Au tomated message] 7803905641) The system [employer] generated this result transmit lester reference range : <=5.0. The refe rence range was not u sed to interpret th is result as normal/abnormal . TRIG (test code = 394 mg/dL 30-170 H 6722147439) LDL CHOL (test code = 137 mg/dL See_Comment [Auto mated message] 56640-2) The system [employer] generated this result transmit lester reference range : <=160. The refe rence range was not u sed to interpret th is result as normal/abnormal . VLDL (test code = 79 mg/dL 5-60 H 2515781396) Lab Interpretation (test Abnormal code = 14918-6) [facility]-11 09:35:42 Test Item Value Reference Range Interpretation Comments MAGNESIUM (test code = 6244905050) 1.5 mg/dL 1.7-2.4 L Lab Interpretation (test code = Abnormal 36440-1) [facility]2022-05-11 09:35:42 Test Item Value Reference Range Interpretation Comments PHOSPHORUS (test code = 0776920009) 3.3 mg/dL 2.5-5.0 Lab Interpretation (test code = Normal 44693-4) [facility]. METABOLIC PANEL ([id number])2021-11-22 01:29:09 Test Item Value Reference Range Interpretation Comments NA (test code = 142 mmol/L 135-145 4602374891) K (test code = 3.7 mmol/L 3.5-5.0 6318914100) CL (test code = 103 mmol/L 98-108 0626019477) CO2 TOTAL (test code = 27 mmol/L 23-31 6630054474) AGAP (test code = 2-16 2633216339) BUN (test code = 11 mg/dL 7-23 9171013968) GLUCOSE (test code = 166 mg/dL 70-110 H 1246969448) CREATININE (test code = 0.61 mg/dL 0.60-1.25 3369313679) TOTAL BILI (test code = 0.8 mg/dL 0.1-1.1 8019659715) CALCIUM (test code = 9.3 mg/dL 8.6-10.6 7975370388) T PROTEIN (test code = 7.4 g/dL 6.3-8.2 2408639670) ALBUMIN (test code = 4.0 g/dL 3.5-5.0 6300110457) ALK PHOS (test code = 164 U/L 34-122 H 4781924669) ALTv (test code = 149 U/L 5-50 H 1742-6) AST(SGOT) (test code = 29 U/L 13-40 8020861098) eGFR (test code = mL/min/1.73m2 2922107232) ARPITA (test code = ARPITA) Association of [...] tests). Lab Interpretation Abnormal (test code = 95761-3) [facility] THRMPLAS [id number] 01:23:46 Test Item Value Reference Range Interpretation Comments APTT Patient (test See_Comment [Automat ed code = 3173-2) message] The system which generated this result transmitted reference range : 23 - 38 Seconds . The reference range was not used to interpr et this result as normal/abnormal . ARPITA (test code = ARPITA) [facility] mean normal value for aPTT is 30 seconds. Lab Interpretation Normal (test code = 56920-7) [facility]landPROTHROMBIN TIME / [id number] 01:21:51 Test Item Value Reference Range Interpretation Comments PROTIME PATIENT (test See_Comment [Auto mated message] code = 5964-2) The system wh ich generated this result transmitted ref erence range: 12.0 - 1 4.7 Seconds. The re ference range was not u sed to interpret this result as normal/abnor mal. INR (test code = 6301-6) Nor mal INR <1.1; Warfarin Therap eutic range 2.0 to 3. 0 or 2.5 to 3.5, dep ending upon the indica tions. Lab Interpretation (test Normal code = 26490-9) [facility] WITH [id number] 01:15:28 Test Item Value Reference Range Interpretation Comments [...] as normal/abnormal . HGB (test code = 16.5 g/dL 12.2-16.4 H 718-7) HCT (test code = 49.1 % 38.4-49.3 4544-3) MCV (test code = 87.7 fL 81.7-95.6 787-2) MCH (test code = 29.5 pg 26.1-32.7 785-6) MCHC (test code = 33.6 g/dL 31.2-35.0 786-4) RDW-SD (test code = 48.4 fL 38.5-51.6 22049-6) RDW-CV (test code = 15.1 % 12.1-15.4 788-0) PLT (test code = See_Comment [Automated 777-3) message] The sy stem which generated this result transmitted reference range : 150 - 328 10*3/ ?L. The reference r boubacar was not used to interpret this result as normal/abnormal . MPV (test code = 10.1 fL 9.8-13.0 70212-0) NRBC/100 WBC (test See_Comment [Automat ed code = 6773619313) message] The system which generated this result transmitted reference range : 0.0 - 10.0 /100 WBCs. The refer ence range was not u sed to interpret th is result as normal/abnormal . NRBC x10^3 (test code <0.01 See_Comment [Auto mated = 5988705404) message] The s ystem which generated this result transmitted reference range : 10*3/?L. The reference range was not used to interpret this result as normal/abnormal . GRAN MAT (NEUT) % 72.7 % (test code = 770-8) IMM GRAN % (test code 0.60 % = 7843790250) LYMPH % (test code = 15.5 % 736-9) MONO % (test code = 8.2 % 5905-5) EOS % (test code = 2.6 % 713-8) BASO % (test code = 0.4 % 706-2) GRAN MAT x10^3(ANC) 7.83 10*3/uL 1.99-6.95 H (test code = 2686100789) IMM GRAN x10^3 (test 0.07 10*3/uL 0.00-0.06 H code = 1077007220) LYMPH x10^3 (test code 1.67 10*3/uL 1.09-3.23 = 731-0) MONO x10^3 (test code 0.88 10*3/uL 0.36-1.02 = 742-7) EOS x10^3 (test code = 0.28 10*3/uL 0.06-0.53 711-2) BASO x10^3 (test code 0.04 10*3/uL 0.01-0.09 = 704-7) Lab Interpretation Abnormal (test code = 84994-9) [facility]landL[facility] Acid Whole [id number] 01:14:32 Test Item Value Reference Range Interpretation Comments LACTIC ACID (test code = 1.86 mmol/L 0.50-2.20 7386195390) Lab Interpretation (test code = Normal 03270-9) [facility] WITH [id number] 04:47:32 Test Item Value Reference Range Interpretation Comments WBC (test code = See_Comment H [Automated 2690-2) message] The sy stem which generated this result transmitted reference range : 4.20 - 10.70 10*3/?L. The reference range was not used to interpret this result as normal/abnormal . RBC (test code = See_Comment [Automated 799-8) message] The sy stem which generated this result transmitted reference range : 4.26 - 5.52 10*6/?L. The reference range was not used to interpret this result as normal/abnormal . HGB (test code = 16.1 g/dL 12.2-16.4 718-7) HCT (test code = 47.2 % 38.4-49.3 4544-3) MCV (test code = 86.1 fL 81.7-95.6 787-2) MCH (test code = 29.4 pg 26.1-32.7 785-6) MCHC (test code = 34.1 g/dL 31.2-35.0 786-4) RDW-SD (test code = 45.7 fL 38.5-51.6 20700-5) RDW-CV (test code = 14.6 % 12.1-15.4 788-0) PLT (test code = See_Comment [Automated 777-3) message] The sy stem which generated this result transmitted reference range : 150 - 328 10*3/ ?L. The reference r boubacar was not used to interpret this result as normal/abnormal . MPV (test code = 11.0 fL 9.8-13.0 52257-1) NRBC/100 WBC (test See_Comment [Automat ed code = 5984722364) message] The system which generated this result transmitted reference range : 0.0 - 10.0 /100 WBCs. The refer ence range was not u sed to interpret th is result as normal/abnormal . NRBC x10^3 (test code <0.01 See_Comment [Auto mated = 0413730826) message] The s ystem which generated this result transmitted reference range : 10*3/?L. The reference range was not used to interpret this result as normal/abnormal . GRAN MAT (NEUT) % 72.2 % (test code = 770-8) IMM GRAN % (test code 0.60 % = 1589283635) LYMPH % (test code = 17.7 % 736-9) MONO % (test code = 7.4 % 5905-5) EOS % (test code = 1.8 % 713-8) BASO % (test code = 0.3 % 706-2) GRAN MAT x10^3(ANC) 9.09 10*3/uL 1.99-6.95 H (test code = 8148795266) IMM GRAN x10^3 (test 0.07 10*3/uL 0.00-0.06 H code = 4272568771) LYMPH x10^3 (test code 2.22 10*3/uL 1.09-3.23 = 731-0) MONO x10^3 (test code 0.93 10*3/uL 0.36-1.02 = 742-7) EOS x10^3 (test code = 0.22 10*3/uL 0.06-0.53 711-2) BASO x10^3 (test code 0.04 10*3/uL 0.01-0.09 = 704-7) Lab Interpretation Abnormal (test code = 11882-5) [facility]. METABOLIC PANEL (74509)2021-10-16 04:36:41 Test Item Value Reference Range Interpretation Comments NA (test code = 138 mmol/L 135-145 3022961969) K (test code = 4.6 mmol/L 3.5-5.0 6447605959) CL (test code = 105 mmol/L 98-108 9578777295) CO2 TOTAL (test code = 21 mmol/L 23-31 L 1476791991) AGAP (test code = 2-16 6925523554) BUN (test code = 13 mg/dL 7-23 8590873585) GLUCOSE (test code = 167 mg/dL 70-110 H 1562288198) CREATININE (test code = 0.48 mg/dL 0.60-1.25 L 2712102972) TOTAL BILI (test code = 0.8 mg/dL 0.1-1.5 5006245206) CALCIUM (test code = 9.3 mg/dL 8.6-10.6 4302047388) T PROTEIN (test code = 7.6 g/dL 6.3-8.2 5493347963) ALBUMIN (test code = 4.2 g/dL 3.5-5.0 1153473337) ALK PHOS (test code = 98 U/L 34-122 3017081371) ALTv (test code = 71 U/L 5-50 H 1742-6) AST(SGOT) (test code = 36 U/L 13-40 5740286369) eGFR (test code = mL/min/1.73m2 9573990077) ARPITA (test code = ARPITA) Association of [...] tests). Lab Interpretation Abnormal (test code = 99942-6) [facility] 04:36:41 Test Item Value Reference Range Interpretation Comments MAGNESIUM (test code = 7112305612) 1.6 mg/dL 1.7-2.4 L Lab Interpretation (test code = Abnormal 20169-5) [facility] WITH [id number] 00:23:28 Test Item Value Reference Range Interpretation Comments WBC (test code = See_Comment H [Automated 0359-2) message] The sy stem which generated this result transmitted reference range : 4.20 - 10.70 10*3/?L. The reference range was not used to interpret this result as normal/abnormal . RBC (test code = See_Comment H [Automated 486-8) message] The sy stem which generated this [...] RDW-SD (test code = 47.6 fL 38.5-51.6 51936-8) RDW-CV (test code = 15.1 % 12.1-15.4 788-0) PLT (test code = See_Comment H [Automated 777-3) message] The sy stem which generated this result transmitted reference range : 150 - 328 10*3/ ?L. The reference r boubacar was not used to interpret this result as normal/abnormal . MPV (test code = 10.5 fL 9.8-13.0 16674-9) NRBC/100 WBC (test See_Comment [Automat ed code = 1241826440) message] The system which generated this result transmitted reference range : 0.0 - 10.0 /100 WBCs. The refer ence range was not u sed to interpret th is result as normal/abnormal . NRBC x10^3 (test code <0.01 See_Comment [Auto mated = 7949882677) message] The s ystem which generated this result transmitted reference range : 10*3/?L. The reference range was not used to interpret this result as normal/abnormal . GRAN MAT (NEUT) % 66.7 % (test code = 770-8) IMM GRAN % (test code 0.40 % = 3155359997) LYMPH % (test code = 24.4 % 736-9) MONO % (test code = 6.6 % 5905-5) EOS % (test code = 1.5 % 713-8) BASO % (test code = 0.4 % 706-2) GRAN MAT x10^3(ANC) 7.43 10*3/uL 1.99-6.95 H (test code = 1303753949) IMM GRAN x10^3 (test 0.04 10*3/uL 0.00-0.06 code = 0113771782) LYMPH x10^3 (test code 2.72 10*3/uL 1.09-3.23 = 731-0) MONO x10^3 (test code 0.74 10*3/uL 0.36-1.02 = 742-7) EOS x10^3 (test code = 0.17 10*3/uL 0.06-0.53 711-2) BASO x10^3 (test code 0.04 10*3/uL 0.01-0.09 = 704-7) Lab Interpretation Abnormal (test code = 71585-5) [facility] ([id number])2021-09-29 00:18:07 Test Item Value Reference Range Interpretation Comments NA (test code = 139 mmol/L 135-145 7114811840) K (test code = 4.8 mmol/L 3.5-5.0 2620922235) CL (test code = 104 mmol/L 98-108 1696524083) CO2 TOTAL (test code = 22 mmol/L 23-31 L 5648467875) AGAP (test code = 2-16 7582792443) BUN (test code = 15 mg/dL 7-23 8442794622) GLUCOSE (test code = 93 mg/dL 70-110 5363564298) CREATININE (test code = 0.67 mg/dL 0.60-1.25 4889591128) TOTAL BILI (test code = 0.7 mg/dL 0.1-1.5 9976926353) CALCIUM (test code = 9.8 mg/dL 8.6-10.6 8070759832) T PROTEIN (test code = 8.9 g/dL 6.3-8.2 H 9166297214) ALBUMIN (test code = 4.9 g/dL 3.5-5.0 5890557842) ALK PHOS (test code = 126 U/L 34-122 H 3914018435) ALTv (test code = 43 U/L 5-50 1742-6) AST(SGOT) (test code = 28 U/L 13-40 1815862807) eGFR (test code = mL/min/1.73m2 8530578797) ARPITA (test code = ARPITA) Association of [...] tests). Lab Interpretation Abnormal (test code = 65114-2) [facility]. METABOLIC PANEL (39791)2021-08-06 12:48:40 Test Item Value Reference Range Interpretation Comments NA (test code = 137 mmol/L 135-145 0700811903) K (test code = 4.5 mmol/L 3.5-5.0 3101583016) CL (test code = 107 mmol/L 98-108 5521427697) CO2 TOTAL (test code = 24 mmol/L 23-31 9372917849) AGAP (test code = 2-16 0105594050) BUN (test code = 16 mg/dL 7-23 5818058982) GLUCOSE (test code = 116 mg/dL 70-110 H 7260520747) CREATININE (test code = 0.62 mg/dL 0.60-1.25 2495441677) TOTAL BILI (test code = 0.4 mg/dL 0.1-1.3 0151851858) CALCIUM (test code = 8.7 mg/dL 8.6-10.6 4139315592) T PROTEIN (test code = 7.5 g/dL 6.3-8.2 4894273580) ALBUMIN (test code = 3.9 g/dL 3.5-5.0 6767025448) ALK PHOS (test code = 93 U/L 34-122 2225360285) ALTv (test code = 40 U/L 5-50 1742-6) AST(SGOT) (test code = 51 U/L 13-40 H 3199925356) eGFR (test code = mL/min/1.73m2 3805269692) ARPITA (test code = ARPITA) Association of [...] tests). Lab Interpretation Abnormal (test code = 06827-4) [facility] WITH [id number] 12:21:36 Test Item Value Reference Range Interpretation [...] RDW-SD (test code = 50.6 fL 38.5-51.6 39824-9) RDW-CV (test code = 15.3 % 12.1-15.4 788-0) PLT (test code = See_Comment H [Automated 777-3) message] The sy stem which generated this result transmitted reference range : 150 - 328 10*3/ ?L. The reference r boubacar was not used to interpret this result as normal/abnormal . MPV (test code = 10.3 fL 9.8-13.0 50313-1) NRBC/100 WBC (test See_Comment [Automat ed code = 3272238486) message] The system which generated this result transmitted reference range : 0.0 - 10.0 /100 WBCs. The refer ence range was not u sed to interpret th is result as normal/abnormal . NRBC x10^3 (test code <0.01 See_Comment [Auto mated = 7894299766) message] The s ystem which generated this result transmitted reference range : 10*3/?L. The reference range was not used to interpret this result as normal/abnormal . GRAN MAT (NEUT) % 61.5 % (test code = 770-8) IMM GRAN % (test code 0.80 % = 7644983077) LYMPH % (test code = 27.8 % 736-9) MONO % (test code = 6.9 % 5905-5) EOS % (test code = 2.4 % 713-8) BASO % (test code = 0.6 % 706-2) GRAN MAT x10^3(ANC) 6.07 10*3/uL 1.99-6.95 (test code = 8471843455) IMM GRAN x10^3 (test 0.08 10*3/uL 0.00-0.06 H code = 0534061479) LYMPH x10^3 (test code 2.75 10*3/uL 1.09-3.23 = 731-0) MONO x10^3 (test code 0.68 10*3/uL 0.36-1.02 = 742-7) EOS x10^3 (test code = 0.24 10*3/uL 0.06-0.53 711-2) BASO x10^3 (test code 0.06 10*3/uL 0.01-0.09 = 704-7) Lab Interpretation Abnormal (test code = 03575-6) [facility] (NA, K, CL, CO2, GLUCOSE, BUN, CREATININE, CA)2021-08-04 12:40:30 Test Item Value Reference Range Interpretation Comments NA (test code = 139 mmol/L 135-145 4253032178) K (test code = 3.9 mmol/L 3.5-5.0 2187714095) CL (test code = 108 mmol/L 98-108 2789665407) CO2 TOTAL (test code = 25 mmol/L 23-31 3632970319) AGAP (test code = 2-16 7137841593) BUN (test code = 14 mg/dL 7-23 5684487573) GLUCOSE (test code = 107 mg/dL 70-110 3577763429) CREATININE (test code = 0.61 mg/dL 0.60-1.25 1908561394) CALCIUM (test code = 8.1 mg/dL 8.6-10.6 L 0687640813) eGFR (test code = mL/min/1.73m2 6362884700) ARPITA (test code = ARPITA) Association of [...] tests). Lab Interpretation Abnormal (test code = 93916-8) [facility] with [id number] 12:23:51 Test Item Value Reference Range Interpretation Comments WBC (test code = See_Comment [Automated 0329-2) message] The sy stem which generated this result transmitted reference range : 4.20 - 10.70 10*3/?L. The reference range was not used to interpret this result as normal/abnormal . RBC (test code = See_Comment [Automated 428-4) message] The sy stem which generated this [...] RDW-SD (test code = 49.3 fL 38.5-51.6 98520-2) RDW-CV (test code = 15.3 % 12.1-15.4 788-0) PLT (test code = See_Comment H [Automated 777-3) message] The sy stem which generated this result transmitted reference range : 150 - 328 10*3/ ?L. The reference r boubacar was not used to interpret this result as normal/abnormal . MPV (test code = 10.2 fL 9.8-13.0 69883-7) NRBC/100 WBC (test See_Comment [Automat ed code = 2303841334) message] The system which generated this result transmitted reference range : 0.0 - 10.0 /100 WBCs. The refer ence range was not u sed to interpret th is result as normal/abnormal . NRBC x10^3 (test code <0.01 See_Comment [Auto mated = 8056035290) message] The s ystem which generated this result transmitted reference range : 10*3/?L. The reference range was not used to interpret this result as normal/abnormal . GRAN MAT (NEUT) % 56.7 % (test code = 770-8) IMM GRAN % (test code 0.60 % = 8449518755) LYMPH % (test code = 31.1 % 736-9) MONO % (test code = 8.7 % 5905-5) EOS % (test code = 2.4 % 713-8) BASO % (test code = 0.5 % 706-2) GRAN MAT x10^3(ANC) 4.83 10*3/uL 1.99-6.95 (test code = 2613368818) IMM GRAN x10^3 (test 0.05 10*3/uL 0.00-0.06 code = 5158693344) LYMPH x10^3 (test code 2.64 10*3/uL 1.09-3.23 = 731-0) MONO x10^3 (test code 0.74 10*3/uL 0.36-1.02 = 742-7) EOS x10^3 (test code = 0.20 10*3/uL 0.06-0.53 711-2) BASO x10^3 (test code 0.04 10*3/uL 0.01-0.09 = 704-7) Lab Interpretation Abnormal (test code = 10272-8) [facility]. METABOLIC PANEL ([id number])2021-08-03 06:32:14 Test Item Value Reference Range Interpretation Comments NA (test code = 139 mmol/L 135-145 0247494730) K (test code = 4.5 mmol/L 3.5-5.0 7957528400) CL (test code = 102 mmol/L 98-108 1161383888) CO2 TOTAL (test code = 26 mmol/L 23-31 1861918520) AGAP (test code = 2-16 3175306356) BUN (test code = 16 mg/dL 7-23 8887997039) GLUCOSE (test code = 99 mg/dL 70-110 7287270393) CREATININE (test code = 0.83 mg/dL 0.60-1.25 8283017416) TOTAL BILI (test code = 0.6 mg/dL 0.1-1.4 4505818745) CALCIUM (test code = 9.5 mg/dL 8.6-10.6 8697770661) T PROTEIN (test code = 8.6 g/dL 6.3-8.2 H 2160141778) ALBUMIN (test code = 4.6 g/dL 3.5-5.0 2638658282) ALK PHOS (test code = 121 U/L 34-122 9571724726) ALTv (test code = 58 U/L 5-50 H 1742-6) AST(SGOT) (test code = 32 U/L 13-40 0114629395) eGFR (test code = mL/min/1.73m2 0367418625) ARPITA (test code = ARPITA) Association of [...] tests). Lab Interpretation Abnormal (test code = 77587-8) [facility] WITH [id number] 05:48:31 Test Item Value Reference Range Interpretation Comments WBC (test code = See_Comment H [Automated 1390-2) message] The sy stem which generated this result transmitted reference range : 4.20 - 10.70 10*3/?L. The reference range was not used to interpret this result as normal/abnormal . RBC (test code = See_Comment H [Automated 149-8) message] The sy stem which generated this [...] RDW-SD (test code = 49.1 fL 38.5-51.6 94039-9) RDW-CV (test code = 15.5 % 12.1-15.4 H 788-0) PLT (test code = See_Comment H [Automated 777-3) message] The sy stem which generated this result transmitted reference range : 150 - 328 10*3/ ?L. The reference r boubacar was not used to interpret this result as normal/abnormal . MPV (test code = 10.4 fL 9.8-13.0 15738-3) NRBC/100 WBC (test See_Comment [Automat ed code = 0480881876) message] The system which generated this result transmitted reference range : 0.0 - 10.0 /100 WBCs. The refer ence range was not u sed to interpret th is result as normal/abnormal . NRBC x10^3 (test code <0.01 See_Comment [Auto mated = 7418857135) message] The s ystem which generated this result transmitted reference range : 10*3/?L. The reference range was not used to interpret this result as normal/abnormal . GRAN MAT (NEUT) % 64.8 % (test code = 770-8) IMM GRAN % (test code 0.70 % = 3733938589) LYMPH % (test code = 25.2 % 736-9) MONO % (test code = 6.9 % 5905-5) EOS % (test code = 1.9 % 713-8) BASO % (test code = 0.5 % 706-2) GRAN MAT x10^3(ANC) 7.80 10*3/uL 1.99-6.95 H (test code = 6452585457) IMM GRAN x10^3 (test 0.08 10*3/uL 0.00-0.06 H code = 3889389080) LYMPH x10^3 (test code 3.04 10*3/uL 1.09-3.23 = 731-0) MONO x10^3 (test code 0.83 10*3/uL 0.36-1.02 = 742-7) EOS x10^3 (test code = 0.23 10*3/uL 0.06-0.53 711-2) BASO x10^3 (test code 0.06 10*3/uL 0.01-0.09 = 704-7) Lab Interpretation Abnormal (test code = 66552-0) [facility]. METABOLIC PANEL ([id number])2021-08-01 02:19:08 Test Item Value Reference Range Interpretation Comments NA (test code = 136 mmol/L 135-145 6961330461) K (test code = 4.4 mmol/L 3.5-5.0 8927056651) CL (test code = 99 mmol/L 98-108 2975371833) CO2 TOTAL (test code = 25 mmol/L 23-31 4947691631) AGAP (test code = 2-16 8334110795) BUN (test code = 19 mg/dL 7-23 6194492608) GLUCOSE (test code = 103 mg/dL 70-110 3461380287) CREATININE (test code = 0.70 mg/dL 0.60-1.25 3716158360) TOTAL BILI (test code = 0.7 mg/dL 0.1-1.1 4705505532) CALCIUM (test code = 9.2 mg/dL 8.6-10.6 4687426470) T PROTEIN (test code = 9.4 g/dL 6.3-8.2 H 1472086894) ALBUMIN (test code = 4.8 g/dL 3.5-5.0 4139262528) ALK PHOS (test code = 146 U/L 34-122 H 2793102464) ALTv (test code = 75 U/L 5-50 H 1742-6) AST(SGOT) (test code = 37 U/L 13-40 6202243640) eGFR (test code = mL/min/1.73m2 9762817004) ARPITA (test code = ARPITA) Association of [...] tests). Lab Interpretation Abnormal (test code = 42591-4) [facility] 02:18[facility]27 Test Item Value Reference Range Interpretation Comments LIPASE (test code = 8818624415) 86 U/L 0-220 Lab Interpretation (test code = Normal 68057-9) [facility] WITH [id number] 01:55:49 Test Item Value Reference Range Interpretation [...] RDW-SD (test code = 48.7 fL 38.5-51.6 83734-2) RDW-CV (test code = 15.4 % 12.1-15.4 788-0) PLT (test code = See_Comment H [Automated 777-3) message] The sy stem which generated this result transmitted reference range : 150 - 328 10*3/ ?L. The reference r boubacar was not used to interpret this result as normal/abnormal . MPV (test code = 9.9 fL 9.8-13.0 12976-4) NRBC/100 WBC (test See_Comment [Automat ed code = [id number]) message] The system which generated this result transmitted reference range : 0.0 - 10.0 /100 WBCs. The refer ence range was not u sed to interpret th is result as normal/abnormal . NRBC x10^3 (test code <0.01 See_Comment [Auto mated = [id number]) message] The s ystem which generated this result transmitted reference range : 10*3/?L. The reference range was not used to interpret this result as normal/abnormal . GRAN MAT (NEUT) % 69.8 % (test code = 770-8) IMM GRAN % (test code 0.50 % = 1658494945) LYMPH % (test code = 20.5 % 736-9) MONO % (test code = 6.8 % 5905-5) EOS % (test code = 1.9 % 713-8) BASO % (test code = 0.5 % 706-2) GRAN MAT x10^3(ANC) 7.72 10*3/uL 1.99-6.95 H (test code = 1612524776) IMM GRAN x10^3 (test 0.05 10*3/uL 0.00-0.06 code = 1206077362) LYMPH x10^3 (test code 2.26 10*3/uL 1.09-3.23 = 731-0) MONO x10^3 (test code 0.75 10*3/uL 0.36-1.02 = 742-7) EOS x10^3 (test code = 0.21 10*3/uL 0.06-0.53 711-2) BASO x10^3 (test code 0.06 10*3/uL 0.01-0.09 = 704-7) Lab Interpretation Abnormal (test code = 27684-9) [id number] 23:33:52 Test Item Value Reference Interpretation Comments Range D-DIMER (test code = See_Comment [Autom ated [id number]) message] The system which generated this result [...] diagnosis. Lab Interpretation Normal (test code = 85092-9) [facility] (91995)2021-07-29 22:42:48 Test Item Value Reference Range Interpretation Comments NA (test code = 135 mmol/L 135-145 7624348349) K (test code = 4.6 mmol/L 3.5-5.0 0621312935) CL (test code = 102 mmol/L 98-108 0926590981) CO2 TOTAL (test code = 24 mmol/L 23-31 4729671778) AGAP (test code = 2-16 7970029301) BUN (test code = 17 mg/dL 7-23 1761917264) GLUCOSE (test code = 107 mg/dL 70-110 3591846053) CREATININE (test code = 0.60 mg/dL 0.60-1.25 2257735275) TOTAL BILI (test code = 1.0 mg/dL 0.1-1.2 3371735317) CALCIUM (test code = 9.4 mg/dL 8.6-10.6 9959712622) T PROTEIN (test code = 8.6 g/dL 6.3-8.2 H 8539590458) ALBUMIN (test code = 4.6 g/dL 3.5-5.0 7312630175) ALK PHOS (test code = 159 U/L 34-122 H 6409913377) ALTv (test code = 77 U/L 5-50 H 1742-6) AST(SGOT) (test code = 38 U/L 13-40 7460550942) eGFR (test code = mL/min/1.73m2 3534952771) ARPITA (test code = ARPITA) Association of [...] tests). Lab Interpretation Abnormal (test code = 25727-2) [facility] WITH [id number] 22:30:27 Test Item Value Reference Range Interpretation [...] RDW-SD (test code = 48.0 fL 38.5-51.6 71352-4) RDW-CV (test code = 15.1 % 12.1-15.4 788-0) PLT (test code = See_Comment H [Automated 777-3) message] The system which generated this result transmit lester reference range : 150 - 328 10*3/ ?L. The reference range was not u sed to interpret th is result as normal/abnormal . MPV (test code = 10.3 fL 9.8-13.0 80316-5) NRBC/100 WBC (test See_Comment [Automat ed code = 5872725699) message] The system which generated this result transmit lester reference range : 0.0 - 10.0 /100 WBCs. The reference range was not used to interpret this result as normal/abnormal . NRBC x10^3 (test code <0.01 See_Comment [Auto mated = 8814361900) message] The system which generated this result transmit lester reference range : 10*3/?L. The reference range was not used to interpret this result as normal/abnormal . GRAN MAT (NEUT) % 79.9 % (test code = 770-8) IMM GRAN % (test code 0.50 % = 0849660261) LYMPH % (test code = 11.8 % 736-9) MONO % (test code = 6.6 % 5905-5) EOS % (test code = 0.9 % 713-8) BASO % (test code = 0.3 % 706-2) GRAN MAT x10^3(ANC) 10.70 10*3/uL 1.99-6.95 H (test code = 6040127957) IMM GRAN x10^3 (test 0.07 10*3/uL 0.00-0.06 H code = 0894783523) LYMPH x10^3 (test code 1.58 10*3/uL 1.09-3.23 = 731-0) MONO x10^3 (test code 0.89 10*3/uL 0.36-1.02 = 742-7) EOS x10^3 (test code = 0.12 10*3/uL 0.06-0.53 711-2) BASO x10^3 (test code 0.04 10*3/uL 0.01-0.09 = 704-7) Lab Interpretation Abnormal (test code = 31277-3) [facility] (04232)2021-06-07 23:02:15 Test Item Value Reference Range Interpretation Comments NA (test code = 137 mmol/L 135-145 4943644750) K (test code = 4.5 mmol/L 3.5-5.0 3344494451) CL (test code = 109 mmol/L 98-108 H 8437290350) CO2 TOTAL (test code = 22 mmol/L 23-31 L 8783240780) AGAP (test code = 2-16 4989377585) BUN (test code = 7 mg/dL 7-23 1662926406) GLUCOSE (test code = 87 mg/dL 70-110 1223912763) CREATININE (test code = 0.61 mg/dL 0.60-1.25 6671214490) TOTAL BILI (test code = 0.5 mg/dL 0.1-1.4 3312888829) CALCIUM (test code = 9.0 mg/dL 8.6-10.6 2289715078) T PROTEIN (test code = 6.9 g/dL 6.3-8.2 9005828485) ALBUMIN (test code = 3.5 g/dL 3.5-5.0 8963448317) ALK PHOS (test code = 112 U/L 34-122 9645210105) ALTv (test code = 35 U/L 5-50 1742-6) AST(SGOT) (test code = 21 U/L 13-40 0718857172) eGFR (test code = mL/min/1.73m2 8489604620) ARPITA (test code = ARPITA) Association of [...] tests). Lab Interpretation Abnormal (test code = 69056-3) [facility] WITH [id number] 22:51:57 Test Item Value Reference Range Interpretation [...] RDW-SD (test code = 42.4 fL 38.5-51.6 65369-4) RDW-CV (test code = 13.6 % 12.1-15.4 788-0) PLT (test code = See_Comment H [Automated 777-3) message] The sy stem which generated this result transmitted reference range : 150 - 328 10*3/ ?L. The reference r boubacar was not used to interpret this result as normal/abnormal . MPV (test code = 9.4 fL 9.8-13.0 L 95328-6) NRBC/100 WBC (test See_Comment [Automat ed code = 6277666422) message] The system which generated this result transmitted reference range : 0.0 - 10.0 /100 WBCs. The refer ence range was not u sed to interpret th is result as normal/abnormal . NRBC x10^3 (test code <0.01 See_Comment [Auto mated = 0664903569) message] The s ystem which generated this result transmitted reference range : 10*3/?L. The reference range was not used to interpret this result as normal/abnormal . GRAN MAT (NEUT) % 76.4 % (test code = 770-8) IMM GRAN % (test code 0.40 % = 2388742860) LYMPH % (test code = 16.3 % 736-9) MONO % (test code = 5.6 % 5905-5) EOS % (test code = 1.0 % 713-8) BASO % (test code = 0.3 % 706-2) GRAN MAT x10^3(ANC) 8.81 10*3/uL 1.99-6.95 H (test code = 7170173967) IMM GRAN x10^3 (test 0.05 10*3/uL 0.00-0.06 code = 2394970329) LYMPH x10^3 (test code 1.88 10*3/uL 1.09-3.23 = 731-0) MONO x10^3 (test code 0.64 10*3/uL 0.36-1.02 = 742-7) EOS x10^3 (test code = 0.12 10*3/uL 0.06-0.53 711-2) BASO x10^3 (test code 0.03 10*3/uL 0.01-0.09 = 704-7) Lab Interpretation Abnormal (test code = 90339-7) [facility]APID TEST[facility])2020-11-21 01:01:33 Test Item Value Reference Range Interpretation Comments SARS-CoV-2 Rapid ID NOW Not Detected Not Detected (test code = 67647-1) ARPITA (test code = ARPITA) ID NOW COVID-19 Assay is an isothermal nucleic acid amplification test intended for the qualitative detection of nucleic acid from SARS-CoV-2 viral RNA in nasopharyngeal (CORK CUTTER) specimens. It is used under Emergency Use [...] indicated. Lab Interpretation Normal (test code = 03985-9) [facility]. METABOLIC PANEL (00022)2020-11-21 01:00:33 Test Item Value Reference Range Interpretation Comments NA (test code = 140 mmol/L 135-145 5142030613) K (test code = 4.4 mmol/L 3.5-5.0 0249913589) CL (test code = 103 mmol/L 98-108 1579644154) CO2 TOTAL (test code = 28 mmol/L 23-31 9418185477) AGAP (test code = 2-16 0311876077) BUN (test code = 15 mg/dL 7-23 3890065385) GLUCOSE (test code = 85 mg/dL 70-110 3621694781) CREATININE (test code = 0.60 mg/dL 0.60-1.25 5583685152) TOTAL BILI (test code = 1.1 mg/dL 0.1-1.7 4949137846) CALCIUM (test code = 9.0 mg/dL 8.6-10.6 9201958961) T PROTEIN (test code = 7.8 g/dL 6.3-8.2 6420724646) ALBUMIN (test code = 4.0 g/dL 3.5-5.0 1457250882) ALK PHOS (test code = 166 U/L 34-122 H 2855468078) ALTv (test code = 42 U/L 5-50 1742-6) AST(SGOT) (test code = 32 U/L 13-40 7154076740) eGFR (test code = mL/min/1.73m2 2742157832) ARPITA (test code = ARPITA) Association of [...] tests). Lab Interpretation Abnormal (test code = 61112-9) [facility] 01:00:13 Test Item Value Reference Range Interpretation Comments LIPASE (test code = 8986170222) 57 U/L 0-220 Lab Interpretation (test code = Normal 43961-3) [facility]21[facility]10 00:51:55 Test Item Value Reference Range Interpretation Comments APPEARANCE (test code = Turbid Clear A 7516284673) COLOR (test code = Yellow Yellow 2225674120) PH (test code = 4.8-8.0 1294349756) SP GRAVITY (test code = 1.003-1.030 7121283304) GLU U QUAL (test code = Normal Normal 9690596771) BLOOD (test code = 1+ Negative A 0052862408) KETONES (test code = 20 mg/dL Negative A 5776724794) PROTEIN (test code = 100 mg/dL Negative A 2887-8) UROBILIN (test code = 2.0 mg/dL Normal A 1028070181) BILIRUBIN (test code = Negative Negative 9076681366) NITRITE (test code = Positive Negative A 0046439677) LEUK CHAD (test code = 250/uL Negative A 3254740621) RBC/HPF (test code = See_Comment H [Autom ated message] 3652469581) The system [employer] generated this result transmit lester reference range : 0 - 3 HPF. The refe rence range was not u sed to interpret th is result as normal/abnormal . WBC/HPF (test code = >182 See_Comment H [Autom ated message] 6328249463) The system [employer] generated this result transmit lester reference range : 0 - 5 HPF. The refe rence range was not u sed to interpret th is result as normal/abnormal . BACTERIA (test code = Many Negative A 6246212484) MUCOUS (test code = Moderate Negative LPF A 2635560767) WBC CLUMPS (test code = See_Comment H [Au tomated message] 4637874773) The system [employer] generated this result transmit lester reference range : <=1 HPF. The refere nce range was not u sed to interpret th is result as normal/abnormal . Lab Interpretation (test Abnormal code = 10686-8) [facility] WITH [id number] 00:46:14 Test Item Value Reference Range Interpretation [...] RDW-SD (test code = 47.6 fL 38.5-51.6 27715-6) RDW-CV (test code = 15.2 % 12.1-15.4 788-0) PLT (test code = See_Comment H [Automated 777-3) message] The sy stem which generated this result transmitted reference range : 150 - 328 10*3/ ?L. The reference r boubcaar was not used to interpret this result as normal/abnormal . MPV (test code = 9.4 fL 9.8-13.0 L 24849-9) NRBC/100 WBC (test See_Comment [Automat ed code = 3739746644) message] The system which generated this result transmitted reference range : 0.0 - 10.0 /100 WBCs. The refer ence range was not u sed to interpret th is result as normal/abnormal . NRBC x10^3 (test code <0.01 See_Comment [Auto mated = 1168158792) message] The s ystem which generated this result transmitted reference range : 10*3/?L. The reference range was not used to interpret this result as normal/abnormal . GRAN MAT (NEUT) % 61.3 % (test code = 770-8) IMM GRAN % (test code 0.70 % = 6754321697) LYMPH % (test code = 26.4 % 736-9) MONO % (test code = 9.9 % 5905-5) EOS % (test code = 1.3 % 713-8) BASO % (test code = 0.4 % 706-2) GRAN MAT x10^3(ANC) 6.39 10*3/uL 1.99-6.95 (test code = 4402849462) IMM GRAN x10^3 (test 0.07 10*3/uL 0.00-0.06 H code = 6317990125) LYMPH x10^3 (test code 2.75 10*3/uL 1.09-3.23 = 731-0) MONO x10^3 (test code 1.03 10*3/uL 0.36-1.02 H = 742-7) EOS x10^3 (test code = 0.14 10*3/uL 0.06-0.53 711-2) BASO x10^3 (test code 0.04 10*3/uL 0.01-0.09 = 704-7) Lab Interpretation Abnormal (test code = 09531-7) [facility] [id number] 13:03:00 Test Item Value Reference Range Interpretation Comments POC-GLUCOSE METER 140 mg/dL 70-110 H : TESTED A T [facility] 6720 (BEAKER) (test code = [facility], [facility]8) [address]197: Smoking Pipes Cleaner/Techni rose ID = [id number] for AARON COTTRELL POCT-GLUCOSE [id number] 09:15:00 Test Item Value Reference Range Interpretation Comments POC-GLUCOSE METER 142 mg/dL 70-110 H : TESTED A T [facility] 6720 (BEAKER) (test code = [facility], [facility]8) 05128: Smoking Pipes Cleaner/Techni rose ID = [id number] for AARON COTTRELL POCT-GLUCOSE [id number] 20:56:00 Test Item Value Reference Range Interpretation Comments POC-GLUCOSE METER 134 mg/dL 70-110 H : TESTED A T [facility] 6720 (BEAKER) (test code = [facility], [facility]8) 37190: Smoking Pipes Cleaner/Techni rose ID = [id number] for MG LANZA POCT-GLUCOSE [id number] 16:46:00 Test Item Value Reference Range Interpretation Comments POC-GLUCOSE METER 91 mg/dL 70-110 : TESTED A T [facility] 6720 (BEAKER) (test code = [facility], [facility]8) 76070: Smoking Pipes Cleaner/Techni rose ID = [id number] for AARON CABRAL POCT-GLUCOSE [id number] 12:19:00 Test Item Value Reference Range Interpretation Comments POC-GLUCOSE METER 237 mg/dL 70-110 H : TESTED A T [facility] 6720 (BEAKER) (test code = [facility], [facility]) 80047: Smoking Pipes Cleaner/Techni rose ID = [id number] for AARON COTTRELL MR, EXTREMITY, LOWER, WITHOUT CONTRAST, [id number] 09:12:00FINAL REPORT MRI of the right and [...] Garzaort Verified Date/Time: 07/29/2019 09:12:01 Reading Location: [facility] C013X Ortho Consult Reading Room MR, EXTREMITY, LOWER, WITHOUT CONTRAST, [id number] 09:12:00FINAL REPORT MRI of the right and [...] Garza Verified Date/Time: 07/29/2019 09:12:01 Reading Location: [facility] B1 C013X Ortho Consult Reading Room POCT-GLUCOSE [id number] 08:47:00 Test Item Value Reference Range Interpretation Comments POC-GLUCOSE METER 264 mg/dL 70-110 H : TESTED A T [facility] 6720 (BEAKER) (test code = [facility] [place] [facility], 1538) [address]35: Smoking Pipes Cleaner/Techni rose ID = [id number] for AARON COTTRELL ISLET CELL AB [id number] 07:43:00 Test Item Value Reference Range Interpretation Comments ISLET CELL AB Refer to individual AUTOVERIFICATION (test Islet Cell Ab code = 2556) and/or Islet Cell Ab Titer results. POCT-GLUCOSE [id number] 21:27:00 Test Item Value Reference Range Interpretation Comments POC-GLUCOSE METER 130 mg/dL 70-110 H : TESTED A T [facility] 6720 (BEAKER) (test code = [employer] [place] [facility], 1538) [address]11: Smoking Pipes Cleaner/Techni rose ID = [id number] for ROSALVA APARICIOY BLOOD [id number] 13:00:00 Test Item Value Reference Range Interpretation Comments CULTURE (BEAKER) (test No growth in 5 days code = 1095) BLOOD [id number] 13:00:00 Test Item Value Reference Range Interpretation Comments CULTURE (BEAKER) (test No growth in 5 days code = 1095) POCT-GLUCOSE [id number] 12:57:00 Test Item Value Reference Range Interpretation Comments POC-GLUCOSE METER 138 mg/dL 70-110 H : TESTED A T [facility] 6720 (BEAKER) (test code = [facility], 1538) 14278: Smoking Pipes Cleaner/Techni rose ID = [id number] for WI LLIS, JUAN ANTONIO POCT-GLUCOSE [id number] 08:43:00 Test Item Value Reference Range Interpretation Comments POC-GLUCOSE METER 226 mg/dL 70-110 H : [facility] (test code = [facility], 153) 32506: Smoking Pipes Cleaner/Techni rose ID = [id number] for WI LLIS, JUAN ANTONIO POCT-GLUCOSE [id number] 21:11:00 Test Item Value Reference Range Interpretation Comments POC-GLUCOSE METER 254 mg/dL 70-110 H : Notified RN/MD: ([facility]) (test code = TESTED AT [place] 5531320 153) [facility], [address]: Smoking Pipes Cleaner/Techni rose ID = [id number] for FERNIE APARICIO POCT-GLUCOSE [id number] 21:02:00 Test Item Value Reference Range Interpretation Comments POC-GLUCOSE METER 177 mg/dL 70-110 H : [facility] (test code = [facility], 153) [address]0823: Smoking Pipes Cleaner/Techni rose ID = [id number] for WI LLIS, JUAN ANTONIO POCT-GLUCOSE [id number] 12:31:00 Test Item Value Reference Range Interpretation Comments POC-GLUCOSE METER 215 mg/dL 70-110 H : [facility] (test code = [facility], 153) [address]: Smoking Pipes Cleaner/Techni rose ID = [id number] for WI LLIS, JUAN ANTONIO WOUND CULTURE + GRAM [id number] 10:10:00 Test Item Value Reference Interpretation Comments Range CULTURE ([facility]) PROTEUS MIRABILIS A 1+ Pro teus (test [...] gram negative (BEAKER) (test code = rods 678949) GRAM STAIN RESULT 2+ gram positive (BEAKER) (test code = rods 127687) GRAM STAIN RESULT <1+ gram negative (BEAKER) (test code = coccobacilli 409604) GRAM STAIN RESULT 2+ gram positive (BEAKER) (test code = cocci in pairs 109143) POCT-GLUCOSE [id number] 08:52:00 Test Item Value Reference Range Interpretation Comments POC-GLUCOSE METER 209 mg/dL 70-110 H : TESTED A T [facility] 6720 (BEAKER) (test code = [facility], 153) 48133: Smoking Pipes Cleaner/Techni rose ID = [id number] for WI ANGELINA, JUAN ANTONIO POCT-GLUCOSE [id number] 21:26:00 Test Item Value Reference Range Interpretation Comments POC-GLUCOSE METER 255 mg/dL 70-110 H : TESTED A T [facility] 6720 (BEAKER) (test code = [facility], 153) 24028: Smoking Pipes Cleaner/Techni rose ID = [id number] for CR ISWELL, TIA POCT-GLUCOSE [id number] 17:34:00 Test Item Value Reference Range Interpretation Comments POC-GLUCOSE METER 227 mg/dL 70-110 H : TESTED A T [facility] 6720 (BEAKER) (test code = [facility], [facility]) 52055: Smoking Pipes Cleaner/Techni rose ID = [id number] for CHAVEZ NNY, LETI POCT-GLUCOSE [id number] 11:28:00 Test Item Value Reference Range Interpretation Comments POC-GLUCOSE METER 282 mg/dL 70-110 H : TESTED A T [facility] 6720 (BEAKER) (test code = [facility], [facility]) 95635: Smoking Pipes Cleaner/Techni rose ID = [id number] for CHAVEZ NNY, LETI POCT-GLUCOSE [id number] 08:19:00 Test Item Value Reference Range Interpretation Comments POC-GLUCOSE METER 329 mg/dL 70-110 H : TESTED A T [facility] 6720 (BEAKER) (test code = [facility], [facility]) 37051: Smoking Pipes Cleaner/Techni rose ID = [id number] for AARON COTTRELL POCT-GLUCOSE [id number] 21:32:00 Test Item Value Reference Range Interpretation Comments POC-GLUCOSE METER 275 mg/dL 70-110 H : TESTED A T [facility] 6720 (BEAKER) (test code = [facility], [facility]8) 56322: Smoking Pipes Cleaner/Techni rose ID = [id number] for CR ISWELL, TIA POCT-GLUCOSE [id number] 17:47:00 Test Item Value Reference Range Interpretation Comments POC-GLUCOSE METER 304 mg/dL 70-110 H : TESTED A T [facility] 6720 (Silicon Clocks[employer]ER) (test code = [facility], 1538) 39741: Smoking Pipes Cleaner/Techni rose ID = [id number] for ERIN ARIZMENDI URINE [id number] 15:21:00 Test Item Value Reference Range Interpretation [...] Tobramycin (test code R = 25) POCT-GLUCOSE [id number] 12:16:00 Test Item Value Reference Range Interpretation Comments POC-GLUCOSE METER 337 mg/dL 70-110 H : TESTED A T [facility] 67[facility] (Blockboard) (test code = [facility], 1538) 27140: Smoking Pipes Cleaner/Techni rose ID = [id number] for ERIN ARIZMENDI BASIC METABOLIC [id number] 10:39:00 Test Item Value Reference Range Interpretation [...] S NOT APPLICABLE FOR DIALYSIS PATIEN TS. Smoking Pipes Cleaner ID - JANET FPOCT-GLUCOSE [id number] 08:29:00 Test Item Value Reference Range Interpretation Comments POC-GLUCOSE METER 395 mg/dL 70-110 H : TESTED A T [facility] 6720 (BEAKER) (test code = [place], 1538) [address]: Smoking Pipes Cleaner/Techni rose ID = [id number] for ERIN ARIZMENDI CBC W/PLT COUNT & AUTO [id number] 06:40:00 Test Item Value Reference Range Interpretation [...] PERCENT (BEAKER) (test code = 2801) POCT-GLUCOSE [id number] 19:55:00 Test Item Value Reference Range Interpretation Comments POC-GLUCOSE METER 369 mg/dL 70-110 H : TESTED A T [facility] 6720 (BEAKER) (test code = [facility], 153) 29893: Smoking Pipes Cleaner/Techni rose ID = [id number] for CR MG BARTON POCT-GLUCOSE [id number] 16:45:00 Test Item Value Reference Range Interpretation Comments POC-GLUCOSE METER 272 mg/dL 70-110 H : TESTED A T [facility] 6720 (BEAKER) (test code = [facility], 153) 66256: Smoking Pipes Cleaner/Techni rose ID = [id number] for TH OMAS, FRIEDA POCT-GLUCOSE [id number] 11:40:00 Test Item Value Reference Range Interpretation Comments POC-GLUCOSE METER 277 mg/dL 70-110 H : TESTED A T [facility] 6720 (BEAKER) (test code = [facility], 153) 09215: Smoking Pipes Cleaner/Techni rose ID = [id number] for TH OMAS, FRIEDA BASIC METABOLIC [id number] 10:22:00 Test Item Value Reference Range Interpretation [...] S NOT APPLICABLE FOR DIALYSIS PATIEN TS. Smoking Pipes Cleaner ID - NTPLIPID [id number] 10:17:00 Test Item Value Reference Range Interpretation [...] Borderline 130-159 High 160-189 Very High >=190 Smoking Pipes Cleaner ID - NTP POCT-GLUCOSE [id number] 08:28:00 Test Item Value Reference Range Interpretation Comments POC-GLUCOSE METER 388 mg/dL 70-110 H : TESTED A T [facility] 6720 (BEAKER) (test code = [place], 1538) [address]: Smoking Pipes Cleaner/Techni rose ID = [id number] for AARON COTTRELL HEMOGLOBIN [id number] 07:54:00 Test Item Value Reference Range Interpretation Comments HEMOGLOBIN A1C (BEAKER) (test code = 10.4 % 4.3-6.1 H 368) CBC W/PLT COUNT & AUTO [id number] 05:56:00 Test Item Value Reference Range Interpretation [...] EOSINOPHILS ABSOLUTE COUNT 0.15 K/ L 0.04-0.54 ([facility]) (test code = 416) BASOPHILS ABSOLUTE COUNT ([facility]) 0.03 K/ L 0.01-0.08 (test code = 417) IMMATURE GRANULOCYTES-RELATIVE 1 % 0-1 PERCENT ([facility]) (test code = 2801) POCT-GLUCOSE [id number] 23:47:00 Test Item Value Reference Range Interpretation Comments POC-GLUCOSE METER 359 mg/dL 70-110 H : Notified RN/MD: ([facility]) (test code = TESTED AT [place] 5531320 153) [facility], [address]: Smoking Pipes Cleaner/Techni rose ID = [id number] for LATYARI DIAZN ICE POCT-GLUCOSE [id number] 21:13:00 Test Item Value Reference Range Interpretation Comments POC-GLUCOSE METER 315 mg/dL 70-110 H : [facility] (test code = [facility], 153) 36288: Smoking Pipes Cleaner/Techni rose ID = [id number] for Sm ith, Ana POCT-GLUCOSE [id number] 21:13:00 Test Item Value Reference Range Interpretation Comments POC-GLUCOSE METER 331 mg/dL 70-110 H : [facility] (test code = [facility], 153) 08169: Smoking Pipes Cleaner/Techni rose ID = [id number] for RO DGERS, LINDSAYECA POCT-GLUCOSE [id number] 10:30:00 Test Item Value Reference Range Interpretation Comments POC-GLUCOSE METER 341 mg/dL 70-110 H : TESTED A T [facility] 6720 ([facility]) (test code = [facility], 153) 14887: Smoking Pipes Cleaner/Techni rose ID = [id number] for Sm ith, Ana CBC W/PLT COUNT & AUTO [id number] 08:48:00 Test Item Value Reference Range Interpretation Comments WHITE BLOOD CELL COUNT ([facility]) 6.7 K/ L 3.5-10.5 (test code = 775) RED BLOOD CELL COUNT ([facility]) 5.28 M/ L 4.63-6.08 (test code = [...] (BEAKER) (test code = Present 1371) HEMOGLOBIN [id number] 06:39:00 Test Item Value Reference Range Interpretation Comments HEMOGLOBIN A1C (BEAKER) (test code = 10.5 % 4.3-6.1 H 368) LIPID [id number] 04:57:00 Test Item Value Reference Range Interpretation [...] Very High >=190 Specimen moderately lipemicBASIC METABOLIC [id number] 04:56:00 Test Item Value Reference Range Interpretation [...] NOT APPLICABLE FOR DIALYSIS PATIEN TS. 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 Signed: Solo Mileseport Verified Date/Time: 07/22/2019 19:54:10 Reading Location: [address] Consult Reading Room POCT-GLUCOSE [id number] 19:34:00 Test Item Value Reference Range Interpretation Comments POC-GLUCOSE METER 474 mg/dL 70-110 HH : Notified RN/MD: (BEAKER) (test code = TESTED AT [facility] 6720 1538) [facility], [address]: Smoking Pipes Cleaner/Techni rose ID = [id number] for MARILYNN MAO URINALYSIS W/ REFLEX URINE [id number] 17:48:00 Test Item Value Reference Range Interpretation [...] = Moderate 517) SOURCE(BEAKER) (test code = 3281) CBC W/PLT COUNT & AUTO [id number] 17:38:00 Test Item Value Reference Range Interpretation [...] 3438) Received comment: User comments: Slide comments:POCT-GLUCOSE [id number] 16:27:00 Test Item Value Reference Range Interpretation Comments POC-GLUCOSE METER 424 mg/dL 70-110 HH : Notified RN/MD: (BEAKER) (test code = TESTED AT [facility] 6786 7498) [facility], [address]: Smoking Pipes Cleaner/Techni rose ID = [id number] for AK INSONU, MARILYNN CT, BRAIN, WITHOUT [id number] 15:31:00FINAL REPORT CT, BRAIN, WITHOUT CONTRAST CLINICAL [...] MDReport Verified Date/Time: 07/22/2019 15:31:08 Reading Location: [facility] C013V Neuro Reading Room RAD, SHUNT [id number] 15:13:00Reason for exam:->concern for VPS malfunction FINAL [...] of the catheter appear contiguous. Signed: Raina Plasencia MDReport Verified Date/Time: 07/22/2019 15:13:54 Reading Location: [facility] Radiology Reading Room POCT-GLUCOSE METER 2019-07-22 11:38:00 Test Item Value Reference Range Interpretation Comments POC-GLUCOSE METER 394 mg/dL 70-110 H : TESTED A T [facility] 6720 ([facility]) (test code = LIZBETH Petit [facility], 1538) [id number]: Smoking Pipes Cleaner/Techni rose ID = [id number] for GERRY ROCKWELLONMARILYNN Qureshi HEMOGLOBIN [id number] 09:15:00 Test Item Value Reference Range Interpretation Comments HEMOGLOBIN A1C (BEAKER) (test code = 10.4 % 4.3-6.1 H 368) TSH/FREE T4 IF [id number] 07:54:00 Test Item Value Reference Range Interpretation Comments THYROID STIMULATING HORMONE 1.40 uIU/mL 0.35-4.94 (BEAKER) (test code = 772) POCT-GLUCOSE [id number] 07:48:00 Test Item Value Reference Range Interpretation Comments POC-GLUCOSE METER > mg/dL 70-110 HH : Notified RN/MD: TESTED (BEAKER) (test code = AT [facility] 67[address] [facility] 1538) [facility], 770 30: Smoking Pipes Cleaner/Techni rose ID = [id number] for MARILYNN SMITH BASIC METABOLIC [id number] 07:44:00 Test Item Value Reference Range Interpretation [...] NOT APPLICABLE FOR DIALYSIS PATIEN TS. LIPID [id number] 07:34:00 Test Item Value Reference Range Interpretation [...] H : TESTED A T [facility] 67[address] ([facility]) (test code = MELLYERNESTINA Petit [facility], 1538) [address]: Smoking Pipes Cleaner/Techni rose ID = [id number] for CHERYLE LINDA RAD, FOOT, 2 VIEWS, [id number] 22:28:00Reason for exam:->osteomyletitis FINAL REPORT TECHNIQUE: Two [...] osteomyelitis, recommend MRI with contrast. Signed: Matias Cardenas Verified Date/Time: 07/21/2019 22:28:25 Reading Location: [facility] Consult Reading Room RAD, FOOT, 2 VIEWS, [id number] 22:28:00Reason for exam:->osteomyletitsFINAL REPORT TECHNIQUE: Two views [...] osteomyelitis, recommend MRI with contrast. Signed: Matias Cardenas Verified Date/Time: 07/21/2019 22:28:25 Reading Location: [address] Consult Reading Room POCT-GLUCOSE METER 2019-07-21 21:04:00 Test Item Value Reference Range Interpretation Comments POC-GLUCOSE METER 430 mg/dL 70-110 HH : Notified RN/MD: (FELICIANO) (test code = TESTED AT [facility] 6720 1538) [facility], [address]: Smoking Pipes Cleaner/Techni rose ID = [id number] for SO OJKatarzyna ALBERTO ERTAPENEM:SUSC:PT:ISOLATE:ORDQN:[id number] 16:48:00 Test Item Value Reference Range Interpretation Comments Culture: Urine (test >100,000 CFU/mL Proteus code = Culture: mirabilis 10,000 - Urine) 50,000 CFU/mL Skin [facility]:SUSC:PT:ISOLATE:ORDQN:[id number] 16:48:00 Test Item Value Reference Range Interpretation Comments Proteus mirabilis (test Proteus mirabilis code = Proteus mirabilis) [facility] AND [id number] 16:48:00 Test Item Value Reference Range Interpretation Comments UA Nitrite (test code Negative (05/22/18 10:48 = UA Nitrite) AM) [facility] AND [id number] 16:48:00 Test Item Value Reference Range Interpretation Comments UA Bili (test code = Negative *NA*(05/22/18 UA Bili) 10:48 AM) [facility] AND [id number] 16:48:00 Test Item Value Reference Range Interpretation Comments UA Ketones (test code Negative *NA*(05/22/18 = UA Ketones) 10:48 AM) [facility] AND [id number] 16:48:00 Test Item Value Reference Range Interpretation Comments UA Blood (test code = Trace *ABN*(05/22/18 UA Blood) 10:48 AM) [facility] AND [id number] 16:48:00 Test Item Value Reference Range Interpretation Comments UA Urobilinogen (test code = UA 0.2 0.1-1.0 Urobilinogen) [facility] AND [id number] 16:48:00 Test Item Value Reference Range Interpretation Comments UA Leuk Est (test code Large *ABN*(05/22/18 = UA Leuk Est) 10:48 AM) [facility] AND [id number] 16:48:00 Test Item Value Reference Range Interpretation Comments UA Protein (test code Negative (05/22/18 10:48 = UA Protein) AM) [facility] AND [id number] 16:48:00 Test Item Value Reference Range Interpretation Comments UA Glucose (test code Negative (05/22/18 10:48 = UA Glucose) AM) [facility] AND [id number] 16:48:00 Test Item Value Reference Range Interpretation Comments UA pH (test code = UA pH) 7.0 1 5.0-8.0 [facility] AND [id number] 16:48:00 Test Item Value Reference Range Interpretation Comments UA Spec Grav (test code = UA Spec 1.015 1 Grav) [facility] AND [id number] 16:48:00 Test Item Value Reference Range Interpretation Comments UA Color (test code = Yellow *NA*(05/22/18 UA Color) 10:48 AM) [facility] AND [id number] 16:48:00 Test Item Value Reference Range Interpretation Comments UA Turbidity (test code = Clear (05/22/18 10:48 UA Turbidity) AM) [facility] AND [id number] 16:48:00 Test Item Value Reference Range Interpretation Comments UA Mucus (test code = UA Mucus) Few /LPF [facility] AND [id number] 16:48:00 Test Item Value Reference Range Interpretation Comments UA Bacteria (test code = UA Few /HPF Bacteria) [facility] AND [id number] 16:48:00 Test Item Value Reference Range Interpretation Comments UA RBC (test code = 0-2 /HPF See_Comment [Automa lester message] The UA RBC) system which ge nerated this result tra nsmitted reference range : <=2. The reference range was not used to interpr et this result as dany l/abnormal. [facility] AND [id number] 16:48:00 Test Item Value Reference Range Interpretation Comments UA Sq Epi (test code = None Seen (05/22/18 UA Sq Epi) 10:48 AM) [facility] AND [id number] 16:48:00 Test Item Value Reference Range Interpretation Comments UA WBC (test code = UA WBC) 51-100 /HPF [facility] [id number] 11:57:00 Test Item Value Reference Range Interpretation Comments Antibody Scrn (test Negative (05/22/18 5:57 code = Antibody Scrn) AM) [facility] [id number] 11:57:00 Test Item Value Reference Range Interpretation Comments ABO/Rh (test code = ABO/Rh) AB POS [id number] 11:57:00 Test Item Value Reference Range Interpretation Comments PTT (test code = PTT) 33.4 s 22.9-35.8 [facility] CenterPcdfwozVNHAJZRPEE4207-58-33 11:57:00 Test Item Value Reference Range Interpretation Comments PT (test code = PT) 13.7 s 12.0-14.7 [facility] [id number] 11:57:00 Test Item Value Reference Range Interpretation Comments INR (test code = INR) 1.05 1 0.85-1.17 [facility]2018-11-08 10:50:01 Test Item Value Reference Range Interpretation Comments Potassium Lvl (test code = Potassium 4.2 3.5-5.1 Lvl) [facility]2018-11-08 10:50:01 Test Item Value Reference Range Interpretation Comments Sodium Lvl (test code = Sodium Lvl) 137 135-145 [facility]2018-11-08 10:50:01 Test Item Value Reference Range Interpretation Comments Creatinine Lvl (test code = Creatinine 0.85 0.50-1.40 Lvl) [facility]2018-11-08 10:50:01 Test Item Value Reference Range Interpretation Comments AGAP (test code = AGAP) 9.2 10.0-20.0 [facility] C[id number] 10:50:01 Test Item Value Reference Range Interpretation Comments ACT (TEG) Rapid (test code = ACT (TEG) 136 s 86-118 Rapid) [facility] [id number] 10:50:01 Test Item Value Reference Range Interpretation Comments Split Point Rapid (test code = Split 0.6 min Point Rapid) [facility] CenterDzekaqxXRGRYZHABB3628-59-43 10:50:01 Test Item Value Reference Range Interpretation Comments R-time Rapid (test code = R-time 0.9 min 0.4-0.7 Rapid) [facility] CenterJqvzycyFYQIMBRDMD4350-13-66 10:50:01 Test Item Value Reference Range Interpretation Comments K-time Rapid (test code = K-time 1.4 min 0.6-2.3 Rapid) [facility] CenterMyqavjvFEVACGTQKU0502-52-05 10:50:01 Test Item Value Reference Range Interpretation Comments Angle Rapid (test code = Angle 71 degrees 64-80 Rapid) [facility] CenterCnjuklrPDPFIMUVRA2659-30-27 10:50:01 Test Item Value Reference Range Interpretation Comments G-value Rapid (test code = G-value 12.7 5.0-11.6 Rapid) [facility] CenterJpgelvjZQWBETPUYC3865-51-64 10:50:01 Test Item Value Reference Range Interpretation Comments Max Amplitude Rapid (test code = Max 72 mm 52-71 Amplitude Rapid) [facility] CenterQlfycouZWIFPBUKPP5199-65-03 10:50:01 Test Item Value Reference Range Interpretation Comments Estimated % Lysis Rapid 0.1 See_Comment [Au tomated message] The (test code = Estimated syste m which generated % Lysis Rapid) this result t ransmitted reference range : <=7.5. The reference r boubacar was not used to int erpret this result as normal/abnormal . [facility] CenterHsokeifMSFKSDYLWH1858-25-50 10:50:01 Test Item Value Reference Range Interpretation Comments Platelet (test code = Platelet) 367 133-450 [facility] CenterDsqtyxcTZKTEKZFZH4976-46-34 10:50:01 Test Item Value Reference Range Interpretation Comments MPV (test code = MPV) 7.8 7.4-10.4 [facility] [id number] 10:50:01 Test Item Value Reference Range Interpretation Comments MCH (test code = MCH) 27.4 pg 27.0-31.0 [facility] CenterQiavmulQLRPWHZKGD3833-79-99 10:50:01 Test Item Value Reference Range Interpretation Comments MCV (test code = MCV) 80.7 80.0-94.0 [facility] CenterUowtktlYTRNLRABFQ0777-49-98 10:50:01 Test Item Value Reference Range Interpretation Comments MCHC (test code = MCHC) 34.0 32.0-36.0 [facility] CenterNjdtspqPGAOONJYZJ8866-41-59 10:50:01 Test Item Value Reference Range Interpretation Comments RDW (test code = RDW) 18.9 11.5-14.5 [facility] CenterNdwgyxcWUDJSVBQTO6945-38-89 10:50:01 Test Item Value Reference Range Interpretation Comments Hct (test code = Hct) 43.3 42.0-54.0 [facility] CenterZdkwebfAECGCMYJJK3780-16-35 10:50:01 Test Item Value Reference Range Interpretation Comments WBC (test code = WBC) 9.3 3.7-10.4 [facility] CenterHnksdmfLKZYQDXMLZ0707-72-31 10:50:01 Test Item Value Reference Range Interpretation Comments Hgb (test code = Hgb) 14.7 14.0-18.0 [facility] CenterTrjgwpbDFRNODJPBK1004-17-78 10:50:01 Test Item Value Reference Range Interpretation Comments RBC (test code = RBC) 5.36 4.70-6.10 [facility] CenterPymlrlqIFRMAYESGP7866-15-08 10:50:01 Test Item Value Reference Range Interpretation Comments Eosinophils # (test code 0.2 See_Comment [A utomated message] The = Eosinophils #) system whic h generated this result tra nsmitted reference range : <=0.5. The reference r boubacar was not used to int erpret this result as normal/abnormal . [facility] CenterSktbnzhQPDGPMCMIG1422-14-08 10:50:01 Test Item Value Reference Range Interpretation Comments Basophils # (test code 0.1 See_Comment [Aut omated message] The = Basophils #) system which generated this result tra nsmitted reference range : <=0.2. The reference r boubacar was not used to int erpret this result as normal/abnormal . [facility] CenterPmtaoknAOAIZTEVAI5646-05-60 10:50:01 Test Item Value Reference Range Interpretation Comments Lymphocytes # (test code = Lymphocytes 1.8 1.0-5.5 #) [facility] CenterTvwtwnjNBVIVOBGSL0692-21-08 10:50:01 Test Item Value Reference Range Interpretation Comments Monocytes # (test code 0.9 See_Comment [Aut omated message] The = Monocytes #) system which generated this result tra nsmitted reference range : <=0.8. The reference r boubacar was not used to int erpret this result as normal/abnormal . [facility] CenterKtbgtndNLCNXKQMWT5052-19-33 10:50:01 Test Item Value Reference Range Interpretation Comments Neutrophils # (test code = Neutrophils 6.3 1.5-8.1 #) [facility] CenterFeuyfuzFPNEGYHVPI6613-51-23 10:50:01 Test Item Value Reference Range Interpretation Comments Eosinophils (test code = 2.0 See_Comment [A utomated message] The Eosinophils) system which ge nerated this result tra nsmitted reference range : <=4.0. The reference r boubacar was not used to int erpret this result as normal/abnormal . [facility] CenterBygokrbCNFXLUZYOX8728-34-24 10:50:01 Test Item Value Reference Range Interpretation Comments Segs (test code = Segs) 67.4 45.0-75.0 [facility] CenterVbodobqCUAEQCJMGZ7431-92-83 10:50:01 Test Item Value Reference Range Interpretation Comments Lymphocytes (test code = Lymphocytes) 19.9 20.0-40.0 [facility] CenterFrlirugHEAWJNDVAD9228-53-57 10:50:01 Test Item Value Reference Range Interpretation Comments Basophils (test code = 1.0 See_Comment [Aut omated message] The Basophils) system which ge nerated this result tra nsmitted reference range : <=1.0. The reference r boubacar was not used to int erpret this result as normal/abnormal . [facility] CenterKbiiwqvBRHTOTROVE8589-82-38 10:50:01 Test Item Value Reference Range Interpretation Comments Monocytes (test code = Monocytes) 9.7 2.0-12.0 [facility]2018-11-08 10:50:01 Test Item Value Reference Range Interpretation Comments eGFR (test code = eGFR) 133 [facility]2018-11-08 10:50:01 Test Item Value Reference Range Interpretation Comments Calcium Lvl (test code = Calcium Lvl) 9.4 8.5-10.5 [facility]2018-11-08 10:50:01 Test Item Value Reference Range Interpretation Comments CO2 (test code = CO2) 28 24-32 [facility]2018-11-08 10:50:01 Test Item Value Reference Range Interpretation Comments BUN (test code = BUN) 14 7-22 [facility]2018-11-08 10:50:01 Test Item Value Reference Range Interpretation Comments Glucose Lvl (test code = Glucose Lvl) 89 70-99 [facility]2018-11-08 10:50:01 Test Item Value Reference Range Interpretation Comments Chloride Lvl (test code = Chloride Lvl) 104 95-109 [facility]2018-05-08 05:42:00 Test Item Value Reference Range Interpretation Comments B/C Ratio (test code = B/C Ratio) 17 1 6-25 [facility]2018-05-08 05:42:00 Test Item Value Reference Range Interpretation Comments Globulin (test code = Globulin) 4.3 2.7-4.2 [facility]2018-05-08 05:42:00 Test Item Value Reference Range Interpretation Comments A/G Ratio (test code = A/G Ratio) 0.7 1 0.7-1.6 [facility]2018-05-08 05:42:00 Test Item Value Reference Range Interpretation Comments AGAP (test code = AGAP) 14.4 10.0-20.0 [facility]2018-05-08 05:42:00 Test Item Value Reference Range Interpretation Comments eGFR (test code = eGFR) [address] [place] 551088-05-08 05:42:00 Test Item Value Reference Range Interpretation Comments Alk Phos (test code = Alk Phos) 76 39-136 [facility]2018-05-08 05:42:00 Test Item Value Reference Range Interpretation Comments ALT (test code = ALT) 35 See_Comment [Auto mated message] The system which ge nerated this result transmit lester reference range : <=65. The reference range was not used to interpr et this result as dany l/abnormal. [facility]2018-05-08 05:42:00 Test Item Value Reference Range Interpretation Comments Albumin Lvl (test code = Albumin Lvl) 2.8 3.5-5.0 [facility]2018-05-08 05:42:00 Test Item Value Reference Range Interpretation Comments Total Protein (test code = Total 7.1 6.4-8.4 Protein) [facility]2018-05-08 05:42:00 Test Item Value Reference Range Interpretation Comments Calcium Lvl (test code = Calcium Lvl) 8.7 8.5-10.5 [facility]2018-05-08 05:42:00 Test Item Value Reference Range Interpretation Comments AST (test code = AST) 18 See_Comment [Auto mated message] The system which ge nerated this result transmit lester reference range : <=37. The reference range was not used to interpr et this result as dany l/abnormal. [facility]2018-05-08 05:42:00 Test Item Value Reference Range Interpretation Comments Bili Total (test code = Bili Total) 0.3 0.2-1.3 [facility]2018-05-08 05:42:00 Test Item Value Reference Range Interpretation Comments Potassium Lvl (test code = Potassium 4.4 3.5-5.1 Lvl) [facility]2018-05-08 05:42:00 Test Item Value Reference Range Interpretation Comments Chloride Lvl (test code = Chloride Lvl) 109 95-109 [facility]2018-05-08 05:42:00 Test Item Value Reference Range Interpretation Comments CO2 (test code = CO2) 23 24-32 [facility]2018-05-08 05:42:00 Test Item Value Reference Range Interpretation Comments Glucose Lvl (test code = Glucose Lvl) 114 70-99 [facility]2018-05-08 05:42:00 Test Item Value Reference Range Interpretation Comments Creatinine Lvl (test code = Creatinine 1.01 0.50-1.40 Lvl) [facility]2018-05-08 05:42:00 Test Item Value Reference Range Interpretation Comments BUN (test code = BUN) 17 7-22 [facility]2018-05-08 05:42:00 Test Item Value Reference Range Interpretation Comments Sodium Lvl (test code = Sodium Lvl) 142 135-145 [facility] CenterTpvubmrEPIIDAPFVM4017-28-88 05:42:00 Test Item Value Reference Range Interpretation Comments Basophils (test code = 0.6 See_Comment [Aut omated message] The Basophils) system which ge nerated this result tra nsmitted reference range : <=1.0. The reference r boubacar was not used to int erpret this result as normal/abnormal . [facility] CenterObnuurpLUGKVAJQVE0270-31-96 05:42:00 Test Item Value Reference Range Interpretation Comments Segs-Bands # (test code = Segs-Bands #) 4.8 1.5-8.1 [facility] CenterJwutgzpKFTFGIFXNK0010-20-07 05:42:00 Test Item Value Reference Range Interpretation Comments Monocytes # (test code 0.7 See_Comment [Aut omated message] The = Monocytes #) system which generated this result tra nsmitted reference range : <=0.8. The reference r boubacar was not used to int erpret this result as normal/abnormal . [facility] CenterFxinagjSXDSNSOCLN9761-95-86 05:42:00 Test Item Value Reference Range Interpretation Comments Lymphocytes # (test code = Lymphocytes 1.9 1.0-5.5 #) [facility] CenterZovygpqJQJNKCFAFV1377-94-34 05:42:00 Test Item Value Reference Range Interpretation Comments Monocytes (test code = Monocytes) 9.4 2.0-12.0 [facility] CenterVzofonvSUXSHKTMCS1296-02-87 05:42:00 Test Item Value Reference Range Interpretation Comments Eosinophils # (test code 0.2 See_Comment [A utomated message] The = Eosinophils #) system whic h generated this result tra nsmitted reference range : <=0.5. The reference r boubacar was not used to int erpret this result as normal/abnormal . [facility] CenterEcfwlgnBZUBAYIBII3109-28-18 05:42:00 Test Item Value Reference Range Interpretation Comments Eosinophils (test code = 2.9 See_Comment [A utomated message] The Eosinophils) system which ge nerated this result tra nsmitted reference range : <=4.0. The reference r boubacar was not used to int erpret this result as normal/abnormal . [facility] CenterMjoqaptDGRBKZLAMI0156-91-82 05:42:00 Test Item Value Reference Range Interpretation Comments Segs (test code = Segs) 62.2 45.0-75.0 [facility] CenterBcsmsdeNXIUOQTPKE7051-31-82 05:42:00 Test Item Value Reference Range Interpretation Comments Lymphocytes (test code = Lymphocytes) 24.9 20.0-40.0 [facility] CenterFlqgbbkNYZZXTXWTZ2414-55-97 05:42:00 Test Item Value Reference Range Interpretation Comments MCH (test code = MCH) 27.5 pg 27.0-31.0 [facility] CenterWfrbkgeCNHNPBNLYA1226-75-82 05:42:00 Test Item Value Reference Range Interpretation Comments MCV (test code = MCV) 85.3 80.0-94.0 [facility] CenterDpjcfmkXDVGIDWQEL6458-35-24 05:42:00 Test Item Value Reference Range Interpretation Comments Hct (test code = Hct) 43.9 42.0-54.0 [facility] CenterAzzqblvMCTNRXSFZU6103-74-62 05:42:00 Test Item Value Reference Range Interpretation Comments Hgb (test code = Hgb) 14.2 14.0-18.0 [facility] CenterNsmbbhuHQDWEBUYPS6837-39-37 05:42:00 Test Item Value Reference Range Interpretation Comments WBC (test code = WBC) 7.7 3.7-10.4 [facility] CenterDigvtwwEZDGGUHTRE9059-18-07 05:42:00 Test Item Value Reference Range Interpretation Comments RBC (test code = RBC) 5.15 4.70-6.10 [facility] CenterCicdfvqDNPHNZAEYI7238-92-53 05:42:00 Test Item Value Reference Range Interpretation Comments MPV (test code = MPV) 8.4 7.4-10.4 [facility] CenterNukeihiPCEFFQNRKH3722-14-62 05:42:00 Test Item Value Reference Range Interpretation Comments MCHC (test code = MCHC) 32.3 32.0-36.0 [facility] CenterMrkaesjZHAAKZLVHV7508-64-33 05:42:00 Test Item Value Reference Range Interpretation Comments RDW (test code = RDW) 17.3 11.5-14.5 [facility] CenterFmgonvzMBVZWZAFOU3138-54-95 05:42:00 Test Item Value Reference Range Interpretation Comments Platelet (test code = Platelet) 317 133-450 [facility]2018-05-07 09:36:00 Test Item Value Reference Range Interpretation Comments Globulin (test code = Globulin) 4.4 2.7-4.2 [facility]2018-05-07 09:36:00 Test Item Value Reference Range Interpretation Comments A/G Ratio (test code = A/G Ratio) 0.6 1 0.7-1.6 [facility]2018-05-07 09:36:00 Test Item Value Reference Range Interpretation Comments B/C Ratio (test code = B/C Ratio) 17 1 6-25 [facility]2018-05-07 09:36:00 Test Item Value Reference Range Interpretation Comments AGAP (test code = AGAP) 11.3 10.0-20.0 [facility]2018-05-07 09:36:00 Test Item Value Reference Range Interpretation Comments eGFR (test code = eGFR) 134 [facility]2018-05-07 09:36:00 Test Item Value Reference Range Interpretation Comments Creatinine Lvl (test code = Creatinine 0.84 0.50-1.40 Lvl) [facility]2018-05-07 09:36:00 Test Item Value Reference Range Interpretation Comments Sodium Lvl (test code = Sodium Lvl) 142 135-145 [facility]2018-05-07 09:36:00 Test Item Value Reference Range Interpretation Comments Glucose Lvl (test code = Glucose Lvl) 99 70-99 [facility]2018-05-07 09:36:00 Test Item Value Reference Range Interpretation Comments BUN (test code = BUN) 14 7-22 [facility]2018-05-07 09:36:00 Test Item Value Reference Range Interpretation Comments Alk Phos (test code = Alk Phos) 79 39-136 [facility]2018-05-07 09:36:00 Test Item Value Reference Range Interpretation Comments Bili Total (test code = Bili Total) 0.3 0.2-1.3 [facility]2018-05-07 09:36:00 Test Item Value Reference Range Interpretation Comments AST (test code = AST) 14 See_Comment [Auto mated message] The system which ge nerated this result transmit lester reference range : <=37. The reference range was not used to interpr et this result as dany l/abnormal. [place] 551088-05-07 09:36:00 Test Item Value Reference Range Interpretation Comments ALT (test code = ALT) 43 See_Comment [Auto mated message] The system which ge nerated this result transmit lester reference range : <=65. The reference range was not used to interpr et this result as dany l/abnormal. [place] 551088-05-07 09:36:00 Test Item Value Reference Range Interpretation Comments Total Protein (test code = Total 7.1 6.4-8.4 Protein) [place] 551088-05-07 09:36:00 Test Item Value Reference Range Interpretation Comments Albumin Lvl (test code = Albumin Lvl) 2.7 3.5-5.0 [place] 551088-05-07 09:36:00 Test Item Value Reference Range Interpretation Comments Calcium Lvl (test code = Calcium Lvl) 9.2 8.5-10.5 [place] 551088-05-07 09:36:00 Test Item Value Reference Range Interpretation Comments CO2 (test code = CO2) 21 24-32 [place] 551088-05-07 09:36:00 Test Item Value Reference Range Interpretation Comments Potassium Lvl (test code = Potassium 4.3 3.5-5.1 Lvl) [place] 551088-05-07 09:36:00 Test Item Value Reference Range Interpretation Comments Chloride Lvl (test code = Chloride Lvl) 114 95-109 [facility]YarkatlDBOJGLJYQH2213-16-61 09:36:00 Test Item Value Reference Range Interpretation Comments MCHC (test code = MCHC) 32.5 32.0-36.0 [place] 694288-05-07 09:36:00 Test Item Value Reference Range Interpretation Comments RDW (test code = RDW) 17.5 11.5-14.5 [place] 694288-05-07 09:36:00 Test Item Value Reference Range Interpretation Comments Platelet (test code = Platelet) 400 133-450 [facility] CenterEnkwklsQDZBFTVVMY9423-09-80 09:36:00 Test Item Value Reference Range Interpretation Comments MPV (test code = MPV) 8.5 7.4-10.4 [facility] CenterDsyxmwhVJHHHXQSFE8602-42-94 09:36:00 Test Item Value Reference Range Interpretation Comments WBC (test code = WBC) 6.6 3.7-10.4 [facility] CenterSwainyfFVOGYFUICQ4293-28-82 09:36:00 Test Item Value Reference Range Interpretation Comments RBC (test code = RBC) 5.17 4.70-6.10 [facility] CenterWrpryvkABRXMXZGVG5420-42-06 09:36:00 Test Item Value Reference Range Interpretation Comments MCV (test code = MCV) 86.1 80.0-94.0 [facility] CenterBauzlbdVDIBQHRVGX5336-18-30 09:36:00 Test Item Value Reference Range Interpretation Comments Hct (test code = Hct) 44.5 42.0-54.0 [facility] CenterOqhrqeyOFLLHIRQPY7013-97-38 09:36:00 Test Item Value Reference Range Interpretation Comments MCH (test code = MCH) 28.0 pg 27.0-31.0 [facility] CenterIxragcnQBZHOWWWJO2276-43-33 09:36:00 Test Item Value Reference Range Interpretation Comments Hgb (test code = Hgb) 14.5 14.0-18.0 [facility] CenterYcjuikqWAGJFUJDGZ1915-23-35 09:36:00 Test Item Value Reference Range Interpretation Comments Lymphocytes # (test code = Lymphocytes 1.7 1.0-5.5 #) [facility] CenterXvuacglOGRFZXVMHA5287-83-39 09:36:00 Test Item Value Reference Range Interpretation Comments Monocytes # (test code 0.7 See_Comment [Aut omated message] The = Monocytes #) system which generated this result tra nsmitted reference range : <=0.8. The reference r boubacar was not used to int erpret this result as normal/abnormal . [facility] CenterQjpkiqzKKDCRHSUPM4864-25-45 09:36:00 Test Item Value Reference Range Interpretation Comments Eosinophils # (test code 0.2 See_Comment [A utomated message] The = Eosinophils #) system whic h generated this result tra nsmitted reference range : <=0.5. The reference r boubacar was not used to int erpret this result as normal/abnormal . [facility] CenterRiytcdkNZBGNYIWLF0712-65-03 09:36:00 Test Item Value Reference Range Interpretation Comments Lymphocytes (test code = Lymphocytes) 26.1 20.0-40.0 [facility] CenterRswgkaqQTLDPQRXDB5312-36-23 09:36:00 Test Item Value Reference Range Interpretation Comments Segs (test code = Segs) 59.3 45.0-75.0 [facility] CenterCywvpsnLXLHJYIPJQ1034-07-66 09:36:00 Test Item Value Reference Range Interpretation Comments Basophils (test code = 0.8 See_Comment [Aut omated message] The Basophils) system which ge nerated this result tra nsmitted reference range : <=1.0. The reference r boubacar was not used to int erpret this result as normal/abnormal . [facility] CenterBnyiwtkTOAGITSSWF3472-16-86 09:36:00 Test Item Value Reference Range Interpretation Comments Monocytes (test code = Monocytes) 10.5 2.0-12.0 [facility] CenterGcbhniyTOTWGQSBDV5689-39-12 09:36:00 Test Item Value Reference Range Interpretation Comments Eosinophils (test code = 3.3 See_Comment [A utomated message] The Eosinophils) system which ge nerated this result tra nsmitted reference range : <=4.0. The reference r boubacar was not used to int erpret this result as normal/abnormal . [facility] CenterUgaswydLHUGXWZWLD0451-79-42 09:36:00 Test Item Value Reference Range Interpretation Comments Segs-Bands # (test code = Segs-Bands #) 3.9 1.5-8.1 [place] 04170018-05-06 21:02:00 Test Item Value Reference Range Interpretation Comments Vanco Tr TND (test code = Vanco Tr 15:30pm TND) [place] 04170018-05-06 21:02:00 Test Item Value Reference Range Interpretation Comments Vanco Tr (test code = Vanco Tr) 9.1 [facility]2018-05-06 07:07:00 Test Item Value Reference Range Interpretation Comments Glucose Lvl (test code = Glucose Lvl) 74 70-99 [facility]2018-05-06 07:07:00 Test Item Value Reference Range Interpretation Comments BUN (test code = BUN) 12 7-22 [place] 551088-05-06 07:07:00 Test Item Value Reference Range Interpretation Comments Creatinine Lvl (test code = Creatinine 0.75 0.50-1.40 Lvl) [place] 551088-05-06 07:07:00 Test Item Value Reference Range Interpretation Comments eGFR (test code = eGFR) 140 [place] 551088-05-06 07:07:00 Test Item Value Reference Range Interpretation Comments Albumin Lvl (test code = Albumin Lvl) 2.9 3.5-5.0 [place] 551088-05-06 07:07:00 Test Item Value Reference Range Interpretation Comments Globulin (test code = Globulin) 4.4 2.7-4.2 [place] 551088-05-06 07:07:00 Test Item Value Reference Range Interpretation Comments A/G Ratio (test code = A/G Ratio) 0.7 1 0.7-1.6 [place] [address]-05-06 07:07:00 Test Item Value Reference Range Interpretation Comments Bili Total (test code = Bili Total) 0.4 0.2-1.3 [place] 551088-05-06 07:07:00 Test Item Value Reference Range Interpretation Comments Alk Phos (test code = Alk Phos) 71 39-136 [place] 551088-05-06 07:07:00 Test Item Value Reference Range Interpretation Comments AST (test code = AST) 15 See_Comment [Auto mated message] The system which ge nerated this result transmit lester reference range : <=37. The reference range was not used to interpr et this result as dany l/abnormal. [place] 551088-05-06 07:07:00 Test Item Value Reference Range Interpretation Comments ALT (test code = ALT) 28 See_Comment [Auto mated message] The system which ge nerated this result transmit lester reference range : <=65. The reference range was not used to interpr et this result as dany l/abnormal. [place] [address]-05-06 07:07:00 Test Item Value Reference Range Interpretation Comments Potassium Lvl (test code = Potassium 4.4 3.5-5.1 Lvl) [place] 551088-05-06 07:07:00 Test Item Value Reference Range Interpretation Comments Sodium Lvl (test code = Sodium Lvl) 147 135-145 [facility]2018-05-06 07:07:00 Test Item Value Reference Range Interpretation Comments CO2 (test code = CO2) 25 24-32 [place] 551088-05-06 07:07:00 Test Item Value Reference Range Interpretation Comments Chloride Lvl (test code = Chloride Lvl) 114 95-109 [place] 551088-05-06 07:07:00 Test Item Value Reference Range Interpretation Comments B/C Ratio (test code = B/C Ratio) 16 1 6-25 [place] 551088-05-06 07:07:00 Test Item Value Reference Range Interpretation Comments Calcium Lvl (test code = Calcium Lvl) 8.7 8.5-10.5 [place] 551088-05-06 07:07:00 Test Item Value Reference Range Interpretation Comments AGAP (test code = AGAP) 12.4 10.0-20.0 [place] 551088-05-06 07:07:00 Test Item Value Reference Range Interpretation Comments Total Protein (test code = Total 7.3 6.4-8.4 Protein) [place] 694288-05-06 07:07:00 Test Item Value Reference Range Interpretation Comments Platelet (test code = Platelet) 345 133-450 [facility] CenterEywyqyhNQLPXDUJNZ6582-31-23 07:07:00 Test Item Value Reference Range Interpretation Comments MPV (test code = MPV) 8.7 7.4-10.4 [place] 694288-05-06 07:07:00 Test Item Value Reference Range Interpretation Comments WBC (test code = WBC) 6.9 3.7-10.4 [place] 694288-05-06 07:07:00 Test Item Value Reference Range Interpretation Comments RBC (test code = RBC) 5.30 4.70-6.10 [place] 694288-05-06 07:07:00 Test Item Value Reference Range Interpretation Comments MCHC (test code = MCHC) 32.8 32.0-36.0 [place] [address]-05-06 07:07:00 Test Item Value Reference Range Interpretation Comments MCH (test code = MCH) 27.9 pg 27.0-31.0 [facility] CenterUnfohqeWXJWKPPTWE0322-16-25 07:07:00 Test Item Value Reference Range Interpretation Comments Hgb (test code = Hgb) 14.8 14.0-18.0 [facility] CenterAcmtaluESOOROKMIS3858-74-51 07:07:00 Test Item Value Reference Range Interpretation Comments MCV (test code = MCV) 85.0 80.0-94.0 [facility] CenterXkeqsqyXHJHDGUIMV8813-57-32 07:07:00 Test Item Value Reference Range Interpretation Comments Hct (test code = Hct) 45.1 42.0-54.0 [facility] CenterGdybjimXFHVKXVRAL9200-97-62 07:07:00 Test Item Value Reference Range Interpretation Comments RDW (test code = RDW) 17.5 11.5-14.5 [facility] CenterJxvzpfyWHSWSRGDAT7023-59-16 07:07:00 Test Item Value Reference Range Interpretation Comments Eosinophils # (test code 0.2 See_Comment [A utomated message] The = Eosinophils #) system whic h generated this result tra nsmitted reference range : <=0.5. The reference r boubacar was not used to int erpret this result as normal/abnormal . [facility] CenterAhnnfehMWIAATRKKV8835-05-58 07:07:00 Test Item Value Reference Range Interpretation Comments Lymphocytes # (test code = Lymphocytes 2.0 1.0-5.5 #) [facility] CenterKvdthvgRVTSMYTPYW3360-24-85 07:07:00 Test Item Value Reference Range Interpretation Comments Monocytes # (test code 0.7 See_Comment [Aut omated message] The = Monocytes #) system which generated this result tra nsmitted reference range : <=0.8. The reference r boubacar was not used to int erpret this result as normal/abnormal . [facility] CenterZdknkioGFYHKYKCXR6526-90-46 07:07:00 Test Item Value Reference Range Interpretation Comments Eosinophils (test code = 2.4 See_Comment [A utomated message] The Eosinophils) system which ge nerated this result tra nsmitted reference range : <=4.0. The reference r boubacar was not used to int erpret this result as normal/abnormal . [facility] CenterAhqlcruPIFOJUWPLY2326-04-89 07:07:00 Test Item Value Reference Range Interpretation Comments Basophils (test code = 0.6 See_Comment [Aut omated message] The Basophils) system which ge nerated this result tra nsmitted reference range : <=1.0. The reference r boubacar was not used to int erpret this result as normal/abnormal . [facility] CenterLklveauSGITWMXHXL6120-29-10 07:07:00 Test Item Value Reference Range Interpretation Comments Segs-Bands # (test code = Segs-Bands #) 4.0 1.5-8.1 [facility] CenterJmdvbheRJQHKQUJSI1519-92-70 07:07:00 Test Item Value Reference Range Interpretation Comments Monocytes (test code = Monocytes) 10.4 2.0-12.0 [facility] CenterHsusuohLEDADNJRYG3877-49-49 07:07:00 Test Item Value Reference Range Interpretation Comments RBC Morph (test code = Normal (11/17/17 2:07 AM) RBC Morph) [facility] CenterDhiutcyIJULLCLCDD3246-51-33 07:07:00 Test Item Value Reference Range Interpretation Comments Segs (test code = Segs) 58.1 45.0-75.0 [facility] CenterWxlwxdsYJTEGBMVRY7883-82-74 07:07:00 Test Item Value Reference Range Interpretation Comments Plt Morph (test code = Normal (11/17/17 2:07 AM) Plt Morph) [facility] CenterCbppojzTGTFTUVWAY8511-55-94 07:07:00 Test Item Value Reference Range Interpretation Comments Lymphocytes (test code = Lymphocytes) 28.5 20.0-40.0 [facility] CenterEswtofkJDBLOSCHXN9773-99-66 16:07:00 Test Item Value Reference Range Interpretation Comments Basophils # (test code 0.1 See_Comment [Aut omated message] The = Basophils #) system which generated this result tra nsmitted reference range : <=0.2. The reference r boubacar was not used to int erpret this result as normal/abnormal . [facility] CenterXviqpadSIAVGOMWKI8193-06-89 16:07:00 Test Item Value Reference Range Interpretation Comments Polychrom (test code = Moderate *ABN*(11/16/17 Polychrom) 11:07 AM) [place] 04170018-05-05 06:43:00 Test Item Value Reference Range Interpretation Comments Vanco Tr TND (test code = Vanco Tr TND) * [place] 04170018-05-05 06:43:00 Test Item Value Reference Range Interpretation Comments Vanco Tr (test code = Vanco Tr) 22.3 [facility]2018-05-04 11:45:00 Test Item Value Reference Range Interpretation Comments Magnesium Lvl (test code = Magnesium 2.3 1.8-2.4 Lvl) [facility]2018-05-04 11:45:00 Test Item Value Reference Range Interpretation Comments Phosphorus (test code = Phosphorus) 3.5 2.5-4.5 [facility] CenterObqwguwNXYYFHGYBT7917-09-49 11:45:00 Test Item Value Reference Range Interpretation Comments PT (test code = PT) 14.0 s 12.0-14.7 [facility] CenterIcyycuiKODEOYWYKU7640-32-13 11:45:00 Test Item Value Reference Range Interpretation Comments PTT (test code = PTT) 37.6 s 22.9-35.8 [facility] CenterDrrtvkgRLNWMPHRTE7375-92-36 11:45:00 Test Item Value Reference Range Interpretation Comments INR (test code = INR) 1.08 1 0.85-[address] [facility] 11:45:00 Test Item Value Reference Range Interpretation Comments C-REACTIVE PROTEIN (test code = 13.1 C-REACTIVE PROTEIN) [facility]gg[facility]epHSKNZRQMLH9992-50-46 11:45:00 Test Item Value Reference Range Interpretation Comments Prealbumin (test code = Prealbumin) 25.2 18.0-45.0 [facility]2018-05-04 03:06:00 Test Item Value Reference Range Interpretation Comments Lactic Acid Lvl (test code = Lactic 0.9 0.5-2.2 Acid Lvl) [facility] CenterLvzgvrgLDVYHXZMBN7214-17-63 03:06:00 Test Item Value Reference Range Interpretation Comments Sed Rate (test code = 5 See_Comment [Auto mated message] The Sed Rate) system which ge nerated this result transmit lester reference range : <=15. The reference range was not used to interpr et this result as dany l/abnormal. [facility]IGFUVWRN2170-61-39 03:06:00 Test Item Value Reference Range Interpretation Comments C-REACTIVE PROTEIN (test code = 15.8 C-REACTIVE PROTEIN) [facility] CenterVvkqpnvOXJEBSMFTA9727-62-68 00:44:00 Test Item Value Reference Range Interpretation Comments PT (test code = PT) 13.0 s 12.0-14.7 [place] 694288-05-04 00:44:00 Test Item Value Reference Range Interpretation Comments INR (test code = INR) 0.98 1 0.85-1.17 [facility] CenterXlvxajaMROBBZDYOW1874-10-28 00:44:00 Test Item Value Reference Range Interpretation Comments PTT (test code = PTT) 33.2 s 22.9-35.8 [facility] KOFCOVL8769-42-30 23:51:00 Test Item Value Reference Range Interpretation Comments Antibody Scrn (test Negative (11/14/17 6:51 code = Antibody Scrn) PM) [facility] HPCJBBI7107-97-34 23:51:00 Test Item Value Reference Range Interpretation Comments ABO/Rh (test code = ABO/Rh) AB POS [facility] AND [id number] 23:35:00 Test Item Value Reference Range Interpretation Comments UA Urobilinogen (test code = UA 0.2 0.1-1.0 Urobilinogen) [facility] AND [id number] 23:35:00 Test Item Value Reference Range Interpretation Comments UA Nitrite (test code Negative (11/14/17 6:35 = UA Nitrite) PM) [facility] AND HKGZJ7705-58-13 23:35:00 Test Item Value Reference Range Interpretation Comments UA Glucose (test code Negative (11/14/17 6:35 = UA Glucose) PM) [facility] AND [id number] 23:35:00 Test Item Value Reference Range Interpretation Comments UA Ketones (test code Negative *NA*(11/14/17 = UA Ketones) 6:35 PM) [facility] AND [id number] 23:35:00 Test Item Value Reference Range Interpretation Comments UA Bili (test code = Negative *NA*(11/14/17 UA Bili) 6:35 PM) [facility] AND [id number] 23:35:00 Test Item Value Reference Range Interpretation Comments UA Blood (test code = Trace *ABN*(11/14/17 UA Blood) 6:35 PM) [facility] AND [id number] 23:35:00 Test Item Value Reference Range Interpretation Comments UA Leuk Est (test code Small *ABN*(11/14/17 6:35 = UA Leuk Est) PM) [facility] [id number] 23:35:00 Test Item Value Reference Range Interpretation Comments UA Spec Grav (test code = UA Spec 1.020 1 Grav) [facility] AND [id number] 23:35:00 Test Item Value Reference Range Interpretation Comments UA pH (test code = UA pH) 6.0 1 5.0-8.0 [facility] [id number] 23:35:00 Test Item Value Reference Range Interpretation Comments UA Color (test code = Yellow *NA*(11/14/17 6:35 UA Color) PM) [facility] AND [id number] 23:35:00 Test Item Value Reference Range Interpretation Comments UA Protein (test code = Trace *ABN*(11/14/17 UA Protein) 6:35 PM) [facility] AND [id number] 23:35:00 Test Item Value Reference Range Interpretation Comments UA Turbidity (test code Slight Cloudy (11/14/17 = UA Turbidity) 6:35 PM) [facility] AND [id number] 23:35:00 Test Item Value Reference Range Interpretation Comments UA Hyal Cast 0-2 (11/14/17 6:35 See_Comment [Automated message] (test code = UA PM) The system w torri Hyal Cast) generated this result transmitted ref erence range: <=2. The reference range was not used to int erpret this result as normal/abnormal . [facility] AND [id number] 23:35:00 Test Item Value Reference Range Interpretation Comments UA Bacteria (test code = UA Occasional /HPF Bacteria) [facility] AND [id number] 23:35:00 Test Item Value Reference Range Interpretation Comments UA RBC (test code 11-20 /HPF See_Comment [Automate d message] The = UA RBC) system which ge nerated this result tra nsmitted reference range : <=2. The reference range was not used to interpr et this result as normal/abnormal . [facility] [id number] 23:35:00 Test Item Value Reference Range Interpretation Comments UA Sq Epi (test code = UA Sq Occasional /LPF Epi) [facility] AND [id number] 23:35:00 Test Item Value Reference Range Interpretation Comments UA WBC (test code = UA WBC) 51-100 /HPF [facility] CenterMusazkkDNYZERKSPS9396-64-92 23:20:00 Test Item Value Reference Range Interpretation Comments Basophils # (test code 0.1 See_Comment [Aut omated message] The = Basophils #) system which generated this result tra nsmitted reference range : <=0.2. The reference r boubacar was not used to int erpret this result as normal/abnormal . [facility] CenterBfglvxaJRSRTMEEID3138-97-61 23:20:00 Test Item Value Reference Range Interpretation Comments Polychrom (test code = Polychrom) Slight [facility] CenterZrkmjxoKAMIQNHXUP4664-40-37 23:20:00 Test Item Value Reference Range Interpretation Comments Plt Morph (test code = Normal (11/14/17 6:20 PM) Plt Morph) [facility] [id number] 16:22:00 Test Item Value Reference Range Interpretation Comments CULTURE (BEAKER) (test No growth in 5 days code = 1095) BLOOD [id number] 16:22:00 Test Item Value Reference Range Interpretation [...] Normal 762) CBC W/PLT COUNT & AUTO [id number] 22:28:00 Test Item Value Reference Range Interpretation [...] 0.00-0.20 (test code = 417) 0.000.520.000.000.000.00BASI METABOLIC [id number] 11:11:00 Test Item Value Reference Range Interpretation [...] NOT APPLICABLE FOR DIALYSIS PATIEN TS. URINE [id number] 09:56:00 Test Item Value Reference Range Interpretation Comments CULTURE (BEAKER) (test <10,000 col/mL skin code = 1095) marilee COMPREHENSIVE METABOLIC [id number] 08:49:00 Test Item Value Reference Range Interpretation [...] PATIEN TS. CBC W/PLT COUNT & AUTO [id number] 08:46:00 Test Item Value Reference Range Interpretation [...] 0.00-0.20 (test code = 417) 0.00URINALYSIS W/ [id number] 20:36:00 Test Item Value Reference Range Interpretation [...] SOURCE(BEAKER) (test code = 2795) BASIC METABOLIC [id number] 17:00:00 Test Item Value Reference Range Interpretation [...] Specimen slightly ictericCBC W/PLT COUNT & AUTO [id number] 12:18:00 Test Item Value Reference Range Interpretation [...]
[2021-12-26] MEDS ORDERED: INSULIN -REGULAR HUMAN 50 UNIT/0.5 ML ML ONE ×6 (03:22→17:06)
[2021-12-26] MEDS ORDERED: ONDANSETRON 4 MG/2 ML VIAL ONE (03:25)
[2021-12-26] MEDS ORDERED: NA CHLORIDE 0.9% 2,000 ML ONE (03:25)
[2021-12-26 03:49] LABS: Absolute Lymphocytes (CBC) 1.5 K/uL (0.7-4.9); Hematocrit 48.5 % (39.6-49.0); Lymphocytes % 14.4 % (15.3-44.8); MPV 9.1 fL (7.6-11.3); RBC Red Blood Cell Count 5.33 M/uL (4.33-5.43)
[2021-12-26 03:50] LABS: Protime INR 1.07
[2021-12-26 04:23] LABS: Arterial Blood Carboxyhemoglob 2.8 % (0-1.5); Blood Gas Oxyhemoglobin 91.9 % (94-97); Blood O2 Saturation 95.9 % (92-98.5)
--- NOTE | 2021-12-26 04:45 | ER ---
Nurse's Notes [facility] Name: Roland Feldman Jr Age: 36 yrs Sex: Male : 1985 Arrival Date: 12/26/2021 Time: 02:33 Bed 25 Private MD: Diagnosis: Type 2 diabetes mellitus with hyperglycemia;Obesity, unspecified;Vomiting Presentation: 12/26 02:41 Chief complaint: EMS states: N/V BGL >500 on EMS arrival. ke1 02:41 Method Of Arrival: EMS: [facility] ke1 02:41 Initial Sepsis Screen: Does the patient meet any 2 criteria? No. Patient's initial ke1 sepsis screen is negative. Does the patient have a suspected source of infection? No. Patient's initial sepsis screen is negative. Risk Assessment: Do you want to hurt yourself or someone else? Patient reports no desire to harm self or others. Onset of symptoms was December 26, 2021. 03:43 Coronavirus screen: Vaccine status: Patient reports receiving the 2nd dose of the covid ke1 vaccine. Ebola Screen: No symptoms or risks identified at this time. 03:43 Acuity: YUKI 3 ke1 Triage Assessment: 03:45 General: Appears in no apparent distress. Behavior is appropriate for age. Pain: ke1 Complains of pain in general body pain Pain currently is 8 out of 10 on a pain scale. Neuro: Emerson Agitation-Sedation Scale (RASS): 0 - Alert and Calm Level of Consciousness is awake, alert, Oriented to person, place, time, situation. Respiratory: Respiratory effort is even, unlabored, Respiratory pattern is regular, symmetrical. : suprapubic catheter in place. Musculoskeletal: Lower extremities. Injury Description: wound BLE. Historical: - Allergies: 03:44 Amoxicillin; ke1 03:44 Bactrim; ke1 03:44 Ciprofloxacin; ke1 03:44 CLAVULANIC ACID; ke1 03:44 Demerol; ke1 03:44 Doxycycline; ke1 03:44 Levofloxacin; ke1 03:44 Morphine; ke1 03:44 PENICILLINS; ke1 03:44 Toradol; ke1 03:44 TRIMETHOPRIM; ke1 03:44 Vancomycin; ke1 03:44 Zofran; ke1 - PMHx: 03:44 Asthma; Cerebral Palsy; cluster headaches; decubitus ulcers on feet; GERD; ke1 Hydrocephalus; Hypertension; spina bifida; - Immunization history:: Adult Immunizations Client reports receiving the 2nd dose of the Covid vaccine. - Social history:: Smoking status: Patient reports the use of cigarette tobacco products, smokes one-half pack cigarettes per day, Patient uses. Screenin:42 Abuse screen: Denies threats or abuse. Nutritional screening: No deficits noted. ke1 Tuberculosis screening: No symptoms or risk factors identified. Fall Risk No fall in past 12 months (0 pts). Secondary diagnosis (15 points) impaired mobility, IV access (20 points). Ambulatory Aid- Furniture (30 pts.). Gait- Impaired (20 pts.). Mental Status- Oriented to own ability (0 pts). Total Smith Fall Scale indicates High Risk Score (45 or more points). Fall prevention measures have been instituted. Placed Close to Nursing Station 1:1 Attendant Assigned Frequent Obs/Assessments Occuring. Assessment: 04:15 Reassessment: Patient appears in no apparent distress at this time. No changes from [facility] previously documented assessment. Patient is alert, oriented x 3, equal unlabored respirations, skin warm/dry/pink. Patient states symptoms have not improved. Vital Signs: 02:41 BP 138 / 89; Pulse 115; Resp 18; Temp 98.6; Pulse Ox 97% on R/A; Weight 127.01 kg; ke1 Height 4 ft. 11 in. (149.86 cm); 04:15 BP 133 / 64; Pulse 106; Resp 18; Pulse Ox 98% on R/A; ke1 02:41 Body Mass Index 56.55 (127.01 kg, 149.86 cm) ke1 ED Course: 02:33 Patient arrived in ED. as6 02:38 Clifton Quezada MD is Attending Physician. scott 02:41 Chandler Mccarty, NAIF is Primary Nurse. ke1 03:10 Inserted saline lock: 22 gauge in left forearm, using aseptic technique. ke1 03:44 Triage completed. ke1 03:45 XRAY Chest (1 view) In Process Unspecified. EDMS 03:47 Arm band placed on. ke1 03:47 Bed in low position. Call light in reach. ke1 04:44 Eren Varela MD is Hospitalizing Provider. scott Administered Medications: 03:15 Drug: NS 0.9% 1000 ml Route: IV; Rate: 1 bolus; Site: left forearm; ke1 03:15 Drug: Insulin Regular Human 10 units {Co-Signature: as6 (Zuhair Monroy RN).} Route: ke1 IVP; Site: left forearm; 03:15 Drug: NS 0.9% 1000 ml Route: IV; Rate: 125 ml/hr; Site: left forearm; ke1 03:36 Not Given (Patient Refused; allergicc): Zofran (Ondansetron) 4 mg IVP once; over 2 ke1 minutes 04:12 Drug: Insulin Regular Human 10 units {Co-Signature: ke1 (Chandler Mccarty RN).} Route: bb IVP; Site: left forearm; 05:05 Drug: NS 0.9% 1000 ml Route: IV; Rate: 1 bolus; Site: left forearm; ke1 05:05 Drug: Phenergan (promethazine) 12.5 mg Route: IVP; Site: left forearm; ke1 05:05 Drug: Dilaudid (HYDROmorphone) 1 mg Route: IVP; Site: left forearm; ke1 05:09 Drug: Insulin Regular Human 10 units {Co-Signature: as6 (Zuhair Monroy RN).} Route: ke1 IVP; Site: left forearm; 05:50 Drug: Insulin Regular Human 10 units {Co-Signature: vc1 (Melita Haines RN).} Route: ke1 Sub-Q; Site: left lower abdomen; 05:50 Drug: LanTUS (insulin glargine) 30 units Route: Sub-Q; Site: left lower abdomen; ke1 07:26 Drug: Dilaudid (HYDROmorphone) 1 mg Route: IVP; Site: left forearm; ke1 07:26 Drug: Phenergan (promethazine) 12.5 mg Route: IVP; Site: left forearm; ke1 Outcome: 04:45 Decision to Hospitalize by Provider. scott 18:48 Patient left the ED. ss Signatures: Dispatcher [employer] EDClifton Singleton MD MD cha Ballard, Brenda, RN RN bb Smirch, Shelby, RN RN ss Slawson, Ashby, RN RN as6 Ebrottie, Kouassi, RN RN ke1 Ashby Slawson RN as6 Chandler Mccarty RN ke1 Melita Calcote RN vc1
--- NOTE | 2021-12-26 04:45 | EDPHYS ---
Physician Documentation [facility] Name: Roland Feldman Jr Age: 36 yrs Sex: Male : 1985 Arrival Date: 12/26/2021 Time: 02:33 Bed 25 Private MD: JESSICA Physician Clifton Quezada HPI: 12/26 04:40 This 36 yrs old Black Male presents to ER via EMS with complaints of Nausea/Vomiting. scott 04:40 The patient presents to the emergency department with nausea, vomiting, that is scott continuous. Onset: The symptoms/episode began/occurred 2 day(s) ago. Possible causes: unknown. The symptoms are aggravated by nothing. The symptoms are alleviated by nothing. Associated signs and symptoms: The patient has no apparent associated signs or symptoms. Severity of symptoms: At their worst the symptoms were mild in the emergency department the symptoms are unchanged. The patient has experienced similar episodes in the past, multiple times. Historical: - Allergies: 03:44 Amoxicillin; ke1 03:44 Bactrim; ke1 03:44 Ciprofloxacin; ke1 03:44 CLAVULANIC ACID; ke1 03:44 Demerol; ke1 03:44 Doxycycline; ke1 03:44 Levofloxacin; ke1 03:44 Morphine; ke1 03:44 PENICILLINS; ke1 03:44 Toradol; ke1 03:44 TRIMETHOPRIM; ke1 03:44 Vancomycin; ke1 03:44 Zofran; ke1 - PMHx: 03:44 Asthma; Cerebral Palsy; cluster headaches; decubitus ulcers on feet; GERD; ke1 Hydrocephalus; Hypertension; spina bifida; - Immunization history:: Adult Immunizations Client reports receiving the 2nd dose of the Covid vaccine. - Social history:: Smoking status: Patient reports the use of cigarette tobacco products, smokes one-half pack cigarettes per day, Patient uses. ROS: 04:41 Constitutional: Negative for fever, chills, and weight loss, Eyes: Negative for injury, scott pain, redness, and discharge, ENT: Negative for injury, pain, and discharge, Neck: Negative for injury, pain, and swelling, Cardiovascular: Negative for chest pain, palpitations, and edema, Respiratory: Negative for shortness of breath, cough, wheezing, and pleuritic chest pain, Back: Negative for injury and pain, : Negative for injury, bleeding, discharge, and swelling, MS/Extremity: Negative for injury and deformity, Skin: Negative for injury, rash, and discoloration, Neuro: Negative for headache, weakness, numbness, tingling, and seizure, Psych: Negative for depression, anxiety, suicide ideation, homicidal ideation, and hallucinations, Allergy/Immunology: Negative for hives, rash, and allergies, Endocrine: Negative for neck swelling, polydipsia, polyuria, polyphagia, and marked weight changes, Hematologic/Lymphatic: Negative for swollen nodes, abnormal bleeding, and unusual bruising. 04:41 Abdomen/GI: Positive for nausea and vomiting. 04:41 Endocrine: Positive for hyperglycemia. Exam: 04:41 Constitutional: This is a well developed, well nourished patient who is awake, alert, scott and in no acute distress. Head/Face: Normocephalic, atraumatic. Eyes: Pupils equal round and reactive to light, extra-ocular motions intact. Lids and lashes normal. Conjunctiva and sclera are non-icteric and not injected. Cornea within normal limits. Periorbital areas with no swelling, redness, or edema. ENT: Nares patent. No nasal discharge, no septal abnormalities noted. Tympanic membranes are normal and external auditory canals are clear. Oropharynx with no redness, swelling, or masses, exudates, or evidence of obstruction, uvula midline. Mucous membranes moist. Neck: Trachea midline, no thyromegaly or masses palpated, and no cervical lymphadenopathy. Supple, full range of motion without nuchal rigidity, or vertebral point tenderness. No Meningismus. Chest/axilla: Normal chest wall appearance and motion. Nontender with no deformity. No lesions are appreciated. Respiratory: Lungs have equal breath sounds bilaterally, clear to auscultation and percussion. No rales, rhonchi or wheezes noted. No increased work of breathing, no retractions or nasal flaring. Abdomen/GI: Soft, non-tender, with normal bowel sounds. No distension or tympany. No guarding or rebound. No evidence of tenderness throughout. Back: No spinal tenderness. No costovertebral tenderness. Full range of motion. Male : Normal genitalia with no discharge or lesions. Skin: Warm, dry with normal turgor. Normal color with no rashes, no lesions, and no evidence of cellulitis. MS/ Extremity: Pulses equal, no cyanosis. Neurovascular intact. Full, normal range of motion. Neuro: Awake and alert, GCS 15, oriented to person, place, time, and situation. Cranial nerves II-XII grossly intact. Motor strength 5/5 in all extremities. Sensory grossly intact. Cerebellar exam normal. Normal gait. Psych: Awake, alert, with orientation to person, place and time. Behavior, mood, and affect are within normal limits. 04:41 Cardiovascular: Rate: tachycardic, Rhythm: regular, Pulses: Pulses are 4+ in bilateral radial, brachial, femoral, popliteal, posterior tibial and and dorsalis pedis arteries.. Heart sounds: normal, Edema: is not appreciated, JVD: is not appreciated. 04:41 ECG was reviewed by the Attending Physician. Vital Signs: 02:41 BP 138 / 89; Pulse 115; Resp 18; Temp 98.6; Pulse Ox 97% on R/A; Weight 127.01 kg; ke1 Height 4 ft. 11 in. (149.86 cm); 04:15 BP 133 / 64; Pulse 106; Resp 18; Pulse Ox 98% on R/A; ke1 02:41 Body Mass Index 56.55 (127.01 kg, 149.86 cm) ke1 MDM: 02:38 Patient medically screened. [facility] 12/26 03:07 Order name: Basic Metabolic Panel [facility] 12/26 03:07 Order name: CBC with Diff; Complete Time: 04:31 [facility] 12/26 03:07 Order name: LFT's [facility] 12/26 03:07 Order name: Magnesium [facility] 12/26 03:07 Order name: NT PRO-BNP [facility] 12/26 03:07 Order name: PT-INR; Complete Time: 04:31 [facility] 12/26 03:07 Order name: Troponin HS [facility] 12/26 03:07 Order name: Ketone, Serum [facility] 12/26 03:24 Order name: Glucose, Ancillary Testing; Complete Time: 04:31 [facility] 12/26 04:07 Order name: ABG; Complete Time: 05:10 ke1 12/26 04:17 Order name: Glucose, Ancillary Testing; Complete Time: 04:31 [facility] 12/26 05:16 Order name: Glucose, Ancillary Testing [facility] 12/26 05:51 Order name: Glucose, Ancillary Testing [facility] 12/26 06:45 Order name: Glucose, Ancillary Testing [facility] 12/26 03:07 Order name: XRAY Chest (1 view) [facility] 12/26 07:11 Order name: COVID-19 SARS RT PCR (Document "Date of Onset" if Symptomatic) 12/26 10:03 Order name: COVID 19 CPL [facility] 12/26 10:54 Order name: SARS-COV-2 RT PCR [facility] 12/26 11:37 Order name: Glucose, Ancillary Testing [facility] 12/26 16:32 Order name: Glucose, Ancillary Testing [facility] 12/26 03:07 Order name: EKG; Complete Time: 03:07 [facility] 12/26 03:07 Order name: Cardiac monitoring; Complete Time: 04:14 [facility] 12/26 03:07 Order name: EKG - Nurse/Tech; Complete Time: 04:14 [facility] 12/26 03:07 Order name: IV Saline Lock; Complete Time: 03:37 [facility] 12/26 03:07 Order name: Labs collected and sent; Complete Time: 03:37 [facility] 12/26 03:07 Order name: O2 Per Protocol; Complete Time: 03:37 [facility] 12/26 03:07 Order name: O2 Sat Monitoring; Complete Time: 03:37 [facility] EC:41 Rate is 100 beats/min. Rhythm is regular. QRS [place] is Normal. [place] interval is normal. [facility] QRS interval is normal. QT interval is normal. No Q waves. T waves are Normal. No ST changes noted. Clinical impression: NSR w/ Non-specific ST/T Changes, Sinus tachycardia, and No evidence of ischemia. Interpreted by me. Reviewed by me. Administered Medications: 03:15 Drug: NS 0.9% 1000 ml Route: IV; Rate: 1 bolus; Site: left forearm; ke1 03:15 Drug: Insulin Regular Human 10 units {Co-Signature: as6 (Zuhair Monroy RN).} Route: ke1 IVP; Site: left forearm; 03:15 Drug: NS 0.9% 1000 ml Route: IV; Rate: 125 ml/hr; Site: left forearm; ke1 03:36 Not Given (Patient Refused; allergicc): Zofran (Ondansetron) 4 mg IVP once; over 2 ke1 minutes 04:12 Drug: Insulin Regular Human 10 units {Co-Signature: ke1 (Kouassi Ebrottie RN).} Route: bb IVP; Site: left forearm; 05:05 Drug: NS 0.9% 1000 ml Route: IV; Rate: 1 bolus; Site: left forearm; ke1 05:05 Drug: Phenergan (promethazine) 12.5 mg Route: IVP; Site: left forearm; ke1 05:05 Drug: Dilaudid (HYDROmorphone) 1 mg Route: IVP; Site: left forearm; ke1 05:09 Drug: Insulin Regular Human 10 units {Co-Signature: as6 (Zuhair Monroy RN).} Route: ke1 IVP; Site: left forearm; 05:50 Drug: Insulin Regular Human 10 units {Co-Signature: vc1 (Melita Haines RN).} Route: ke1 Sub-Q; Site: left lower abdomen; 05:50 Drug: LanTUS (insulin glargine) 30 units Route: Sub-Q; Site: left lower abdomen; ke1 07:26 Drug: Dilaudid (HYDROmorphone) 1 mg Route: IVP; Site: left forearm; ke1 07:26 Drug: Phenergan (promethazine) 12.5 mg Route: IVP; Site: left forearm; ke1 Disposition Summary: 12/26/21 04:45 Hospitalization Ordered Hospitalization Status: Observation scott Provider: Eren Varela cha Condition: Fair scott Problem: new scott Symptoms: have improved scott Bed/Room Type: Standard scott Location: Telemetry/MedSurg (Inpatient)(12/26/21 17:43) Room Assignment: [facility](12/26/21 17:43) Diagnosis - Type 2 diabetes mellitus with hyperglycemia scott - Obesity, unspecified scott - Vomiting scott Forms: - Medication Reconciliation Form scott - SBAR form scott Signatures: Dispatcher [employer] Clifton France MD MD cha Ballard, Brenda, RN RN bb Smirch, Shelby, RN RN ss Garcia, Cindy, RN RN cg Ebrottie, Kouassi, RN RN ke1 Zuhair Monroy RN as6 Chandler Mccarty RN ke1 Melita Haines RN vc1 Corrections: (The following items were deleted from the chart) 06:28 04:45 Telemetry/MedSurg (observation) scott cg 06:28 04:45 scott cg ::28 [facility] ER HOLD cg ss : ERHOLD- cg ss
[2021-12-26] MEDS ORDERED: GLUCAGON 1 MG/VIAL IM PRN (04:54)
[2021-12-26] MEDS ORDERED: D50W 25 GM/50 ML SYRINGE IV PRN ×2 (04:54→10:16)
[2021-12-26] MEDS ORDERED: NA CHLORIDE 0.9% 1,000 ML ONE ×2 (04:57→09:55)
[2021-12-26] MEDS ORDERED: HYDROMORPHONE HCL 1 MG/ML INJ ONE ×2 (04:57→07:27)
[2021-12-26] MEDS ORDERED: PROMETHAZINE INJ 25 MG/ML AMP ONE ×2 (04:57→07:27)
[2021-12-26] MEDS ORDERED: D10W 125 ML IV PRN (05:00)
[2021-12-26 05:02] LABS: Albumin 3.6 g/dL (3.4-5.0); Alkaline Phosphatase 147 U/L (45-117); BUN Blood Urea Nitrogen 9 mg/dL (7-18); Bicarbonate 20 mmol/L (21-32); Bilirubin Direct 0.1 mg/dL (0-0.2); Bilirubin Total 0.3 mg/dL (0.2-1.0); Glomerular Filtration Rate 80 ml/min (=/>90); Glucose Level 822 mg/dL (74-106); Magnesium 1.9 mg/dL (1.8-2.4); NT PRO-BNP 7 pg/mL (<125); Potassium 3.6 mmol/L (3.5-5.1); Protein, Total 8.3 g/dL (6.4-8.2); Sodium Level 132 mmol/L (136-145); Troponin High Sensitivity 4.3 pg/mL (<58.9)
[2021-12-26 05:42] LABS: ALT/SGPT 129 U/L (12-78); AST/SGOT 23 U/L (15-37)
[2021-12-26] MEDS ORDERED: INSULIN GLARGINE 100 UNIT/ML SQ ONE ×2 (05:53→09:55)
[2021-12-26] MEDS ORDERED: INSULIN -REGULAR HUMAN 50 UNIT/0.5 ML ML SQ SCH (07:30)
[2021-12-26] MEDS ORDERED: ENOXAPARIN 40 MG/0.4 ML SQ SCH (09:00)
[2021-12-26] MEDS ORDERED: HYDROMORPHONE HCL 1 MG/ML INJ IV PRN (09:09)
[2021-12-26] MEDS ORDERED: PROMETHAZINE INJ 25 MG/ML AMP IV PRN (09:09)
[2021-12-26] MEDS ORDERED: ACETAMINOPHEN 325 MG TABLET PO PRN (09:11)
[2021-12-26] MEDS ORDERED: INSULIN GLARGINE 100 UNIT/ML SQ SCH (09:30)
[2021-12-26] MEDS ORDERED: HYDROCODONE/APAP 7.5/325 MG TAB PO PRN (10:16)
--- NOTE | 2021-12-26 11:06 | EKG ---
Test Date: 2021-12-26 Test Time: 03:56:07 Skilled Nursing Facility Counselor: AMISHA MEASUREMENT RESULTS: Intervals: Rate: 100 FL: 164 QRSD: 108 QT: 348 QTc: 448 [place]: P: 61 FL: 164 QRS: 48 T: 11 INTERPRETIVE STATEMENTS: Normal sinus rhythm T wave abnormality, consider inferior ischemia Abnormal ECG Compared to ECG 10/20/2021 14:26:50 T-wave abnormality now present Possible ischemia now present Sinus arrhythmia no longer present Electronically Signed On 12-26-21 11:04:49 CDT by Justin Heredia
[2021-12-26] MEDS: NA CHLORIDE 0.9% 1,000 ML IV SCH ×2 (11:22→20:49)
[2021-12-26] MEDS ORDERED: ENOXAPARIN 40 MG/0.4 ML SQ ONE (11:22)
[2021-12-26] MEDS ORDERED: HYDROCODONE/APAP 7.5/325 MG TAB ONE ×2 (11:26→18:27)
[2021-12-26] MEDS: INSULIN -REGULAR HUMAN 50 UNIT/0.5 ML ML SQ SCH ×3 (11:30→20:48)
--- NOTE | 2021-12-26 12:21 | P.HP ---
Certification for Inpatient Patient admitted to: Inpatient With expected LOS: >2 Midnights Patient will require the following post-hospital care: Home Health Services Practitioner: I am a practitioner with admitting privileges, knowledge of patient current condition, hospital course, and medical plan of care. Services: Services provided to patient in accordance with Admission requirements found in Title 42 Section 412.3 of the Code of Federal Regulations Patient History Date of Service: 12/26/21 Primary Care Provider: Nichole Reason for admission: HONK in [facility] History of Present Illness: Patient is an office patient of [facility]. He has a history of diabetes, Spinal Bifada, irritable bowel syndrome. he has chronic pressure ulcers. He has a chronic pain syndrome. Which he sees Dr. Nina. He has not been taking his insulin for the past few weeks per the patient. States he has been out of syringes. He states he thought he could get it some other way. He has been missing visit in wound care and the office. He has been non compliant with meds and follow up throughout my professional relationship with him. Allergies levofloxacin [From Levaquin] Allergy (Intermediate, Verified 09/25/21 12:15) Hives morphine Allergy (Intermediate, Verified 09/25/21 12:15) Hives sulfamethoxazole [From Bactrim] Allergy (Intermediate, Verified 09/25/21 12:15) Hives ketorolac tromethamine [From Toradol] Allergy (Verified 09/25/21 12:15) Nausea/Vomiting Penicillins Allergy (Verified 09/25/21 12:15) Hives/Rash vancomycin Allergy (Verified 09/25/21 12:15) Hives ondansetron [From Zofran (as hydrochloride)] Adverse Reaction (Mild, Verified 09/25/21 12:15) Nausea/Vomiting amoxicillin [From Augmentin] Adverse Reaction (Verified 09/25/21 12:15) Hives/Rash ciprofloxacin Adverse Reaction (Verified 09/25/21 12:15) Nausea/Vomiting doxycycline Adverse Reaction (Verified 09/25/21 12:15) Nausea/Vomiting sesame seed Adverse Reaction (Verified 09/25/21 12:15) diarrhea pop corn Adverse Reaction (Severe, Uncoded 09/25/21 12:15) diarrhea Home Medications: Hydromorphone [Dilaudid] 4 mg PO Q8HP PRN 09/25/21 Insulin Glargine,Hum.rec.anlog [Lantus] See Protocol SQ DAILY 09/25/21 - Past Medical/Surgical History Diabetic: No -: Spina Bifida with hydrocephalus -: Depression -: Insomnia -: Incontinence -: GERD -: Chronic pain syndrome -: Muscle wasting -: Paraplegia -: Shunt revision -: Cholecystectomy -: Foot surgery -: Hip sx BL -: Bilateral hip surgery -: Appendectomy Psychosocial/ Personal History: Patient currently single. He has no children. He is disabled. - Family History Father -: Hypertension Mother -: Hypertension - Social History Alcohol use: Yes CD- Drugs: No Caffeine use: Yes Review of Systems 10-point ROS is otherwise unremarkable Gastrointestinal: Nausea Integumentary: Other (pressure ulcers ) Physical Examination - Vital Signs Temperature: 98.8 F Blood Pressure: 116/83 Pulse: 97 Respirations: 18 Pulse Ox (%): 94 - Physical Exam General: Alert, In no apparent distress HEENT: Atraumatic, PERRLA, Mucous membr. moist/pink, EOMI, Sclerae nonicteric Neck: Supple, 2+ carotid pulse no bruit, No LAD, Without JVD or thyroid abnormality Respiratory: Clear to auscultation bilaterally, Normal air movement Cardiovascular: Regular rate/rhythm, Normal S1 S2 Gastrointestinal: Normal bowel sounds, No tenderness Musculoskeletal: No tenderness Integumentary: No rashes, Pressure ulcer Neurological: Normal gait, Normal speech, Normal strength at 5/5 x4 extr, Normal tone, Normal affect Lymphatics: No axilla or inguinal lymphadenopathy - Studies Laboratory Data (last 24 hrs) 12/26/21 03:26: PT 11.8, INR 1.07 12/26/21 03:26: WBC 10.1, Hgb 16.1, Hct 48.5, Plt Count 377 12/26/21 03:26: Sodium 132 L, Potassium 3.6, BUN 9, Creatinine 1.20, Glucose 822 H*, Magnesium 1.9, Total Bilirubin 0.3, AST 23, ALT 129 H, Alkaline Phosphatase 147 H Assessment and Plan - Problems (Diagnosis) (1) Hyperosmolar non-ketotic state due to type 2 diabetes mellitus Current Visit: Yes Status: Acute Plan: Secondary to non compliance with insulin. Will get him on his home dosage of lantus 40units sq daily Start the patient on fluids and sliding scale. (2) Chronic pain disorder Onset Date: 05/17/17 Current Visit: No Status: Chronic Plan: Will need to double check with Dr. Nina who is his pain management physician. 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 As stated above he can be manipulative (3) Spina bifida Onset Date: 05/17/17 Current Visit: No Status: Chronic Plan: Will keep him on fall precautions. Qualifiers: Spinal region: lumbosacral Presence of hydrocephalus: unspecified hydrocephalus presence Qualified Code(s): Q05.7 - Lumbar spina bifida without hydrocephalus (4) Stage II pressure ulcer of left ankle Current Visit: No Status: Chronic Plan: He has not been compliant with wound care. The patient can be seen by Wound care. Will go by those recomendations. (5) Non compliance w medication regimen Current Visit: Yes Status: Chronic Plan: Will see if we can have him follow up. Our office does telehealth meetings. However he tends to go to ER quite frequently. He has missed several visits and go to the ER. Hopefully he will be more compliant with his medications. he has had a recent DKA admission. The patient responsibility is a big factor Discharge Plan: Home Plan to discharge in: 48 Hours - Advance Directives Does patient have a Living Will: No Does patient have a Durable POA for Healthcare: No - Code Status/Comfort Care Code Status Assessed: Yes Code Status: Full Code Physician Review: Patient Assessed, Agree with Above Assessment and Plan Critical Care: No Time Spent Managing Pts Care (In Minutes): 70
--- NOTE | 2021-12-26 13:31 | RAD REPORT ---
EXAM DESCRIPTION: XR Chest, 1 View CLINICAL HISTORY: The patient is 36 years old and is Male; COUGH TECHNIQUE: Single view of the chest. COMPARISON: No relevant prior studies available. FINDINGS: Lungs: No pulmonary vascular congestion or consolidation. Pleural space: Unremarkable. No pneumothorax. Heart: Unremarkable. No cardiomegaly. Mediastinum: Unremarkable. Bones/joints: No acute fracture visualized. 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 Upper abdomen: No free air in the visualized upper abdomen. IMPRESSION: No acute cardiopulmonary process identified. Electronically signed by: Hoa Cifuentes MD 12/26/2021 4:48 AM CDT Due to temporary technical issues with the PACS/Fluency reporting system, reports are being signed by the in house radiologists without review as a courtesy to insure prompt reporting. The interpreting radiologist is fully responsible for the content of the report.
[2021-12-26] MEDS: HYDROMORPHONE ORAL 4 MG TAB PO PRN (15:15)
[2021-12-26] MEDS ORDERED: HYDROMORPHONE ORAL 4 MG TAB ONE (15:19)
[2021-12-26] MEDS ORDERED: DICLOFENAC SOD D.R. 75 MG TAB PO PRN (18:05)
[2021-12-26] MEDS: HYDROCODONE/APAP 7.5/325 MG TAB PO ONE ×2 (18:23→19:00)
[2021-12-26 18:58] VITALS: O2SAT 98
[2021-12-26 19:11] VITALS: BMI 56.5
[2021-12-27] MEDS: NA CHLORIDE 0.9% 1,000 ML IV SCH ×3 (04:39→21:12)
[2021-12-27 06:15] LABS: Absolute Lymphocytes (CBC) 2.4 K/uL (0.7-4.9); Hematocrit 40.8 % (39.6-49.0); Lymphocytes % 27.1 % (15.3-44.8); MPV 8.7 fL (7.6-11.3); RBC Red Blood Cell Count 4.62 M/uL (4.33-5.43)
[2021-12-27 06:29] LABS: Potassium 3.7 mmol/L (3.5-5.1)
--- NOTE | 2021-12-27 08:17 | P.PN ---
Subjective Date of Service: 12/27/21 Primary Care Provider: Nichole Chief Complaint: HONK in Dm2 Subjective: Improving Review of Systems 10-point ROS is otherwise unremarkable Gastrointestinal: Nausea Physical Examination - Vital Signs Temperature: 98.2 F Blood Pressure: 131/73 Pulse: 83 Respirations: 18 Pulse Ox (%): 96 - Physical Exam General: Alert, In no apparent distress HEENT: Atraumatic, PERRLA, EOMI Neck: Supple, JVD not distended Respiratory: Clear to auscultation bilaterally, Normal air movement Cardiovascular: Regular rate/rhythm, Normal S1 S2 Gastrointestinal: Normal bowel sounds, No tenderness Musculoskeletal: No tenderness Integumentary: No rashes Neurological: Normal speech, Normal tone, Normal affect Lymphatics: No axilla or inguinal lymphadenopathy Assessment And Plan - Current Problems (Diagnosis) (1) Hyperosmolar non-ketotic state due to type 2 diabetes mellitus Current Visit: Yes Status: Acute Plan: Secondary to non compliance with insulin. Will get him on his home dosage of lantus 40units sq daily Start the patient on fluids and sliding scale. 12/27 Will add januvia to his medications. (2) Chronic pain disorder Onset Date: 05/17/17 Current Visit: No Status: Chronic Plan: Will need to double check with Dr. Nina who is his pain management physician. [employer] aware shows he gets 56 tab a month. As stated above he can be manipulative (3) Spina bifida Onset Date: 05/17/17 Current Visit: No Status: Chronic Plan: Will keep him on fall precautions. Qualifiers: Spinal region: lumbosacral Presence of hydrocephalus: unspecified hydrocephalus presence Qualified Code(s): Q05.7 - Lumbar spina bifida without hydrocephalus (4) Stage II pressure ulcer of left ankle Current Visit: No Status: Chronic Plan: He has not been compliant with wound care. The patient can be seen by Wound care. Will go by those recomendations. (5) Non compliance w medication regimen Current Visit: Yes Status: Chronic Plan: Will see if we can have him follow up. Our office does telehealth meetings. However he tends to go to ER quite frequently. He has missed several visits and go to the ER. Hopefully he will be more compliant with his medications. he has had a recent DKA admission. The patient responsibility is a big factor 12/27 Have verified his pain dosage with Dr. Nina. He gets dilaudid 4mg po q12hrs prn. No more will be given. Physician Review: Patient Assessed, Agree with Above Assessment and Plan Critical Care: No Time Spent Managing PTS Care (In Minutes): 20
[2021-12-27] MEDS: ENOXAPARIN 40 MG/0.4 ML SQ SCH (08:53)
[2021-12-27] MEDS: HYDROMORPHONE ORAL 4 MG TAB PO PRN ×2 (08:53→23:08)
[2021-12-27] MEDS: PROMETHAZINE INJ 25 MG/ML AMP IV PRN ×4 (08:54→23:08)
[2021-12-27] MEDS: INSULIN -REGULAR HUMAN 50 UNIT/0.5 ML ML SQ SCH ×4 (08:54→21:14)
[2021-12-27] MEDS: INSULIN GLARGINE 100 UNIT/ML SQ SCH (08:54)
[2021-12-27] MEDS: MEDIHONEY 44 ML TOPICAL TUBE TOP SCH (14:18)
[2021-12-28] MEDS: NA CHLORIDE 0.9% 1,000 ML IV SCH (05:49)
[2021-12-28] MEDS: PROMETHAZINE INJ 25 MG/ML AMP IV PRN ×2 (05:52→10:59)
[2021-12-28 06:53] LABS: Albumin 2.7 g/dL (3.4-5.0); Bilirubin Total 0.3 mg/dL (0.2-1.0); Potassium 3.7 mmol/L (3.5-5.1); Protein, Total 6.6 g/dL (6.4-8.2)
[2021-12-28] MEDS: ENOXAPARIN 40 MG/0.4 ML SQ SCH (09:07)
[2021-12-28] MEDS: INSULIN GLARGINE 100 UNIT/ML SQ SCH (09:08)
[2021-12-28] MEDS: INSULIN -REGULAR HUMAN 50 UNIT/0.5 ML ML SQ SCH ×2 (09:09→12:10)
[2021-12-28] MEDS: HYDROMORPHONE ORAL 4 MG TAB PO PRN (09:14)
--- NOTE | 2021-12-28 10:48 | P.DS ---
Admission Date: 12/26/21 Discharge Date: 12/28/21 Primary Care Provider: Nichole Disposition: ROUTINE DISCHARGE Discharge Condition: GOOD Reason for Admission: HONK in Dm2 - Problems (1) Hyperosmolar non-ketotic state due to type 2 diabetes mellitus Current Visit: Yes Status: Acute (2) Chronic pain disorder Onset Date: 05/17/17 Current Visit: No Status: Chronic (3) Spina bifida Onset Date: 05/17/17 Current Visit: No Status: Chronic Qualifiers: Spinal region: lumbosacral Presence of hydrocephalus: unspecified hydrocephalus presence Qualified Code(s): Q05.7 - Lumbar spina bifida without hydrocephalus (4) Stage II pressure ulcer of left ankle Current Visit: No Status: Chronic (5) Non compliance w medication regimen Current Visit: Yes Status: Chronic Brief History of Present Illness: Patient is an office patient of [facility]. He has a history of diabetes, Spinal Bifada, irritable bowel syndrome. he has chronic pressure ulcers. He has a chronic pain syndrome. Which he sees Dr. Nina. He has not been taking his insulin for the past few weeks per the patient. States he has been out of syringes. He states he thought he could get it some other way. He has been missing visit in wound care and the office. He has been non compliant with meds and follow up throughout my professional relationship with him. Hospital Course: Patient was admitted for hyperglycemia. He had not been compliant with is insulin. Was treated with diet, insulin and fluids. Today he is in the 200's Which is very good for him Will discharge him home and have him follow up with Telehealth in our office. Vital Signs/Physical Exam: Temp Pulse Resp BP Pulse Ox 97.6 F 81 16 119/69 98 12/28/21 08:00 12/28/21 08:00 12/28/21 09:14 12/28/21 08:00 12/28/21 09:14 General: Alert, In no apparent distress HEENT: Atraumatic, PERRLA, EOMI Neck: Supple, JVD not distended Respiratory: Clear to auscultation bilaterally, Normal air movement Cardiovascular: Regular rate/rhythm, Normal S1 S2 Gastrointestinal: Normal bowel sounds, No tenderness Musculoskeletal: No tenderness Integumentary: No rashes Neurological: Normal speech, Normal tone, Normal affect Lymphatics: No axilla or inguinal lymphadenopathy Laboratory Data at Discharge: WBC 9.0 K/uL (4.3-10.9) 12/27/21 05:37 Hgb 13.8 g/dL (13.6-17.9) 12/27/21 05:37 Hct 40.8 % (39.6-49.0) D 12/27/21 05:37 Plt Count 306 K/uL (152-406) 12/27/21 05:37 PT 11.8 SECONDS (9.5-12.5) 12/26/21 03:26 INR 1.07 12/26/21 03:26 Sodium 139 mmol/L (136-145) 12/28/21 06:19 Potassium 3.7 mmol/L (3.5-5.1) 12/28/21 06:19 BUN 8 mg/dL (7-18) 12/28/21 06:19 Creatinine 0.65 mg/dL (0.55-1.3) 12/28/21 06:19 Glucose 264 mg/dL (74-106) H 12/28/21 06:19 Magnesium 1.9 mg/dL (1.8-2.4) 12/26/21 03:26 Total Bilirubin 0.3 mg/dL (0.2-1.0) 12/28/21 06:19 AST 22 U/L (15-37) 12/28/21 06:19 ALT 98 U/L (12-78) H 12/28/21 06:19 Alkaline Phosphatase 113 U/L (45-117) 12/28/21 06:19 Home Medications: Hydromorphone [Dilaudid] 4 mg PO Q8HP PRN 09/25/21 Insulin Glargine,Hum.rec.anlog [Semglee] 40 unit SQ DAILY 90 Days #40 ml 12/28/21 Edwin [Edwin*] 1 pkt PO BID 90 Days #90 powd.pack 12/28/21 Medihoney [Medihoney Woundcare Gel*] 1 appl TOP DAILY 90 Days #3 tube 12/28/21 Pen Needle, Diabetic, Safety [Assure Id Pen Needle] 1 each MC DAILY 90 Days #90 dis.needle 12/28/21 New Medications: Pen Needle, Diabetic, Safety [Assure Id Pen Needle] 1 each MC DAILY 90 Days #90 dis.needle Edwin [Edwin*] 1 pkt PO BID 90 Days #90 powd.pack Medihoney [Medihoney Woundcare Gel*] 1 appl TOP DAILY 90 Days #3 tube Insulin Glargine,Hum.rec.anlog [Semglee] 40 unit SQ DAILY 90 Days #40 ml Diet: ADA Activity: Ad dinorah Followup: Unknown,U [Primary Care Provider] - Physician Review: Patient Assessed, Agree with Above Assessment and Plan Time spent managing pt's care (in minutes): 30
[2021-12-28] MEDS: MEDIHONEY 44 ML TOPICAL TUBE TOP SCH (12:11)
[2021-12-28 12:19] VITALS: BP 123/60; TEMP 97.8
[2021-12-28] MEDS ORDERED: JUVEN PACKET PO SCH (21:00)
== END 2021-12-28 13:20 | disposition home health service (06) ==
LOC: ER 02:29 → ERHOLD 04:47 → 2ND 18:46
PROVIDERS: ADMIT Internal Medicine; ATTEND Internal Medicine
DX: E11.00 Type 2 diabetes mellitus with hyperosmolarity without nonketotic hyperglycemic-hyperosmolar coma (NKHHC) (principal); Z91.14 Patient's other noncompliance with medication regimen; G89.4 Chronic pain syndrome; L89.522 Pressure ulcer of left ankle, stage 2; Q05.7 Lumbar spina bifida without hydrocephalus; K58.9 Irritable bowel syndrome, unspecified; K21.9 Gastro-esophageal reflux disease without esophagitis; G47.00 Insomnia, unspecified; R32 Unspecified urinary incontinence; G82.20 Paraplegia, unspecified; M62.50 Muscle wasting and atrophy, not elsewhere classified, unspecified site; F32.A Depression, unspecified; F17.210 Nicotine dependence, cigarettes, uncomplicated; Z79.4 Long term (current) use of insulin; Z88.0 Allergy status to penicillin; Z88.2 Allergy status to sulfonamides; Z88.3 Allergy status to other anti-infective agents; Z88.5 Allergy status to narcotic agent; Z88.8 Allergy status to other drugs, medicaments and biological substances; Z91.018 Allergy to other foods; Z90.49 Acquired absence of other specified parts of digestive tract; Z20.822 Contact with and (suspected) exposure to COVID-19; Z82.49 Family history of ischemic heart disease and other diseases of the circulatory system
CPT/HCPCS: 93005; 85025 ×2; 80048 ×2; 36415 ×3; 82010; 83735; 85610; 82947 ×14; 80076; 83036; 84484; 80053; 83880; 71045; 99251; 82805; 96375; 96372; 96374; 99284; U0003; J2550 ×8; J1815 ×13; J1650 ×3; J1170 ×2; G0378 ×5; J7030 ×8; J2405

== ENCOUNTER 2022-01-29 15:58 | Emergency (ER) | payer OTHER ==
--- NOTE | 2022-01-29 20:55 | EDPHYS ---
Physician Documentation [facility] Name: Roland Feldman Jr Age: 36 yrs Sex: Male : 1985 Arrival Date: 01/29/2022 Time: 16:01 Bed 8 Private MD: Eren Varela ED Physician Rah Dominguez HPI: 01/29 17:50 This 36 yrs old Black Male presents to ER via Wheelchair with complaints of Back Pain, ms3 Problem With Urinary Catheter. 17:50 The patient presents with a Presley catheter problem, is not draining. Onset: The ms3 symptoms/episode began/occurred 3 day(s) ago. Modifying factors: The symptoms are alleviated by nothing, the symptoms are aggravated by nothing. Associated signs and symptoms: Pertinent negatives: fever. Severity of symptoms: At their worst the symptoms were moderate, in the emergency department the symptoms are unchanged. Historical: - Allergies: 16:49 Amoxicillin; vg1 16:49 Bactrim; vg1 16:49 Ciprofloxacin; vg1 16:49 CLAVULANIC ACID; vg1 16:49 Demerol; vg1 16:49 Doxycycline; vg1 16:49 Levofloxacin; vg1 16:49 Morphine; vg1 16:49 PENICILLINS; vg1 16:49 Toradol; vg1 16:49 TRIMETHOPRIM; vg1 16:49 Vancomycin; vg1 16:49 Zofran; vg1 - Home Meds: 16:49 Celexa 20 mg Oral tab 1 tab once daily [Active]; fentanyl 25 mcg/hr Topical pt72 1 vg1 patch every 72 hours [Active]; Pepcid 20 mg Oral tab 1 tab once daily [Active]; Percocet 10-325 mg Oral tab 1 tab every 6 hours [Active]; Reglan 10 mg Oral tab 1 tab once daily [Active]; Wellbutrin SR 150 mg Oral TbER 1 tab 2 times per day [Active]; Dilaudid [Active]; - PMHx: 16:49 Asthma; Cerebral Palsy; cluster headaches; decubitus ulcers on feet; GERD; vg1 Hydrocephalus; Hypertension; spina bifida; - Immunization history:: Client reports receiving the 2nd dose of the Covid vaccine. - Social history:: Smoking status: Patient reports the use of cigarette tobacco products, smokes one pack cigarettes per day. ROS: 17:50 Constitutional: Negative for fever, and chills. Neck: Negative for injury, pain, and ms3 swelling, Cardiovascular: Negative for chest pain, and palpitations. Respiratory: Negative for shortness of breath, cough, wheezing, and pleuritic chest pain. 17:50 Back: 17:50 : Positive for Cath not draining. 17:50 All other systems are negative. Exam: 17:50 Constitutional: This is a well developed, well nourished patient who is awake, alert, ms3 and in no acute distress. Head/Face: Normocephalic, atraumatic. Neck: Trachea midline, no cervical lymphadenopathy. Supple, full range of motion without nuchal rigidity, or vertebral point tenderness. No Meningismus. Chest/axilla: Normal chest wall appearance and motion. Nontender with no deformity. Cardiovascular: Regular rate and rhythm with a normal S1 and S2. No gallops, murmurs, or rubs. Normal PMI, no JVD. No pulse deficits. Respiratory: Lungs have equal breath sounds bilaterally, clear to auscultation and percussion. No rales, rhonchi or wheezes noted. No increased work of breathing, no retractions or nasal flaring. Abdomen/GI: Soft, non-tender, with normal bowel sounds. No distension or tympany. No guarding or rebound. No evidence of tenderness throughout. Psych: Awake, alert, with orientation to person, place and time. Behavior, mood, and affect are within normal limits. Vital Signs: 16:46 BP 113 / 77; Pulse 104; Resp 16; Temp 98.2; Pulse Ox 97% on R/A; Weight 127.46 kg; vg1 Height 4 ft. 11 in. (149.86 cm); Pain 8/10; 19:00 BP 109 / 81; Pulse 91; Resp 18 S; Pulse Ox 96% on R/A; as6 21:00 BP 111 / 67; Pulse 88; Resp 16 S; Pulse Ox 99% on R/A; as6 16:46 Body Mass Index 56.75 (127.46 kg, 149.86 cm) vg1 MDM: 17:03 Patient medically screened. ms3 17:50 ED course: Case discussed with Dr Varela prior to patient's arrival. Patient will need ms3 presley flushed or replaced.. 19:30 ED course: Signed out to me by Dr. Palumbo, plan was to dc home after suprapubic catheter rn changed. . 20:53 Differential diagnosis: suprapubic catheter problem. Data reviewed: vital signs, nurses rn notes, and as a result, I will discharge patient. Counseling: I had a detailed discussion with the patient and/or guardian regarding: the historical points, exam findings, and any diagnostic results supporting the discharge/admit diagnosis, the need for outpatient follow up, to return to the emergency department if symptoms worsen or persist or if there are any questions or concerns that arise at home. Response to treatment: the patient's symptoms have markedly improved after treatment, and as a result, I will discharge patient. 01/29 16:47 [facility]: [facility]. Order: Change presley catheter; Complete Time: 20:29 ms3 Administered Medications: No medications were administered Disposition Summary: 01/29/22 20:54 Discharge Ordered Location: Home rn Problem: new rn Symptoms: have improved rn Condition: Stable rn Diagnosis - Other mechanical complication of urinary (indwelling) catheter rn Followup: rn - With: Eren Varela MD - When: As needed - Reason: Recheck today's complaints, Re-evaluation by your physician Discharge Instructions: - Discharge Summary Sheet ms3 - Suprapubic Catheter Home Guide ms3 Forms: - Medication Reconciliation Form rn - Thank You Letter rn - Antibiotic chief learning officer - Prescription Opioid Use rn Signatures: Rah Dominguez MD MD rn Garcia, Victoria, RN RN Mitchell Rios DO DO ms3 Samuel Gray jl9 Corrections: (The following items were deleted from the chart) 16:26 16:15 Misc. Order ordered. ms3 jl9
--- NOTE | 2022-01-29 20:55 | ER ---
Nurse's Notes [facility] Name: Roland Feldman Jr Age: 36 yrs Sex: Male : 1985 Arrival Date: 01/29/2022 Time: 16:01 Bed 8 Private MD: Eren Varela Diagnosis: Other mechanical complication of urinary (indwelling) catheter Presentation: 01/29 16:46 Chief complaint: Patient states: Having issues with the suprapubic catheter for 2 days vg1 with NV and fever. Coronavirus screen: Vaccine status: Patient reports receiving the 2nd dose of the covid vaccine. Client denies travel out of the [place] in the last 14 days. Ebola Screen: Patient denies exposure to infectious person. Patient denies travel to an Ebola-affected area in the 21 days before illness onset. Initial Sepsis Screen: Does the patient meet any 2 criteria? HR > 90 bpm. Does the patient have a suspected source of infection? No. Patient's initial sepsis screen is negative. Risk Assessment: Do you want to hurt yourself or someone else? Patient reports no desire to harm self or others. Onset of symptoms was January 27, 2022. 16:46 Method Of Arrival: Wheelchair vg1 16:46 Acuity: YUKI 3 vg1 Triage Assessment: 16:49 General: Appears uncomfortable, Behavior is calm, cooperative. Pain: Complains of pain vg1 in pelvis Pain currently is 8 out of 10 on a pain scale. Pain began 2-3 days ago. Musculoskeletal:. Historical: - Allergies: 16:49 Amoxicillin; vg1 16:49 Bactrim; vg1 16:49 Ciprofloxacin; vg1 16:49 CLAVULANIC ACID; vg1 16:49 Demerol; vg1 16:49 Doxycycline; vg1 16:49 Levofloxacin; vg1 16:49 Morphine; vg1 16:49 PENICILLINS; vg1 16:49 Toradol; vg1 16:49 TRIMETHOPRIM; vg1 16:49 Vancomycin; vg1 16:49 Zofran; vg1 - Home Meds: 16:49 Celexa 20 mg Oral tab 1 tab once daily [Active]; fentanyl 25 mcg/hr Topical pt72 1 vg1 patch every 72 hours [Active]; Pepcid 20 mg Oral tab 1 tab once daily [Active]; Percocet 10-325 mg Oral tab 1 tab every 6 hours [Active]; Reglan 10 mg Oral tab 1 tab once daily [Active]; Wellbutrin SR 150 mg Oral TbER 1 tab 2 times per day [Active]; Dilaudid [Active]; - PMHx: 16:49 Asthma; Cerebral Palsy; cluster headaches; decubitus ulcers on feet; GERD; vg1 Hydrocephalus; Hypertension; spina bifida; - Immunization history:: Client reports receiving the 2nd dose of the Covid vaccine. - Social history:: Smoking status: Patient reports the use of cigarette tobacco products, smokes one pack cigarettes per day. Screenin:00 Abuse screen: Denies threats or abuse. Denies injuries from another. Nutritional bp screening: No deficits noted. Tuberculosis screening: No symptoms or risk factors identified. Fall Risk None identified. Assessment: 17:00 General: SEE TRIAGE NOTE. bp 17:30 Reassessment: PT REQUEST FOR PAIN MEDICATION CONVEYED TO PROVIDER. MEDICATION OFFERED. bp 18:00 Reassessment: PT DECLINING OFFERED NORCO, STATES HE REQUIRES DILAUDID FOR PAIN bp MEDICATION. 18:30 Reassessment: PT NOW STATING SUPRAPUBIC CATH IS ADHERED AND CANNOT BE REMOVED, STATES bp UNABLE TO TOLERATE MANIPULATION. Vital Signs: 16:46 BP 113 / 77; Pulse 104; Resp 16; Temp 98.2; Pulse Ox 97% on R/A; Weight 127.46 kg; vg1 Height 4 ft. 11 in. (149.86 cm); Pain 8/10; 19:00 BP 109 / 81; Pulse 91; Resp 18 S; Pulse Ox 96% on R/A; as6 21:00 BP 111 / 67; Pulse 88; Resp 16 S; Pulse Ox 99% on R/A; as6 16:46 Body Mass Index 56.75 (127.46 kg, 149.86 cm) vg1 ED Course: 16:01 Patient arrived in ED. mr 16:01 Eren Varela MD is Private Physician. mr 16:06 Mitchell Palumbo DO is Attending Physician. ms3 16:49 Triage completed. vg1 16:49 Arm band placed on. vg1 17:00 Patient has correct armband on for positive identification. Call light in reach. bp 17:57 Holland Hays, RN is Primary Nurse. bp 19:04 Attending Physician role handed off by Mitchell Palumbo DO rn 19:04 Rah Dominguez MD is Attending Physician. rn 19:09 Primary Nurse role handed off by Holland Hays, NAIF tw5 19:09 Mary Anne Gacria is Primary Nurse. tw5 20:28 Alcantara cath inserted, using sterile technique, 16 Fr., by nd, balloon inflated, to aa9 gravity drainage, other suprapubic. 20:53 Eren Varela MD is Referral Physician. rn 22:58 No provider procedures requiring assistance completed. Patient did not have IV access as6 during this emergency room visit. Administered Medications: No medications were administered Medication: 22:58 VIS not applicable for this client. as6 Outcome: 20:54 Discharge ordered by . rn 22:58 Discharged to home via wheelchair. as6 22:58 Condition: stable 22:58 Discharge instructions given to patient, Instructed on discharge instructions, follow up and referral plans. Demonstrated understanding of instructions, follow-up care. 23:01 Patient left the ED. as6 Signatures: Jose Lisbeth bassett Rah Dominguez MD MD rn Peltier, Brian, RN RN Betty Morales, RN RN vg1 Mitchell Palumbo DO DO ms3 Mary Anne Garcia tw5 Zuhair Monroy RN RN as6 Lia Barnes, NAIF RN aa9
[2022-01-29 23:28] VITALS: TEMP 98.2
[2022-01-29 23:31] VITALS: BP 111/67; O2SAT 99
== END 2022-01-29 23:01 | disposition home or self-care (01) ==
LOC: ER 15:58
DX: T83.098A Other mechanical complication of other urinary catheter, initial encounter (principal); I10 Essential (primary) hypertension; J45.909 Unspecified asthma, uncomplicated; F17.210 Nicotine dependence, cigarettes, uncomplicated; Z88.0 Allergy status to penicillin; Z88.1 Allergy status to other antibiotic agents; Z88.3 Allergy status to other anti-infective agents; Z88.5 Allergy status to narcotic agent; Z88.8 Allergy status to other drugs, medicaments and biological substances
CPT/HCPCS: 51702; 99284

== ENCOUNTER 2022-04-15 17:09 | Emergency (ER) | payer OTHER ==
--- OUTSIDE RECORDS SUMMARY | 2022-04-15 17:47 | XMS REPORT | Continuity of Care Document ---
:1985 Author Organization [facility] t Address [address] [place] [address] Support Name Relationship Address Phone LAMAR NGUYEN Mother [address] [place] [id number] Roland Nguyen Unavailable [address] [phone] [place] [address] Lana Nguyen Unavailable Unavailable [phone] Roland Nguyen Jr Unavailable [address] [place] [address] Lamar Nguyen Mother [address] [place] [address] one else per patient, No Unavailable Unavailable Unavail able Lamar Nguyen Mother [address] [phone] [place] [address] PATIENT, NO ONE ELSE PER Unavailable Unavailable Unavail able PHYILLIS Grandparent Unavailable Unavailable LAMAR NGUYEN DENISSE M [address] [place] [id number] Lamar Linares Mother [address] [place] [address] HOSSEIN, LISA Grandparent Unavailable ROLAND NGUYEN F [address] Unavailable [place] [address] O'GALDINO, LISA NOEMÍ Grandparent [address] Unavailable [place] [address] Noemí O'Galdino, Lisa Grandparent [address] [phone] [place] [address] Patrick Sr., Roland Father [address] [phone] [place] [address] Care Team Providers Name Role Phone Sharpjocelyn Primary Care Physician Eren Varela Attending Clinician Unavailable YUDI HOLLOWAY Attending Clinician Unavailable YUDI HOLLOWAY Attending Clinician Unavailable OGUNROSALVA, SARAH BETH A Attending Clinician Unavailable [place] RN, Vesta Petit Attending Clinician Unavailable Renetta NUNO, Concetta Attending Clinician Christiano DISLA, Kristie Johnson Attending Clinician RICARDO CONROY Attending Clinician Unavailable Harry ORACLE E BUSINESS DEVELOPER, Vic B Attending Clinician Edwardo NUNO, Royer Suárez Attending Clinician [phone] Michelle NUNO, Aurora Burton Attending Clinician Mayank NUNO, Adonis Do Attending Clinician Ricardo Conroy MD Attending Clinician Heide Abraham MD Attending Clinician Francisco NUNO, Huy M Attending Clinician Beverly PEREA, Sarah Beth A Attending Clinician [phone] Kamila Zepeda LVN Attending Clinician DILEEP CONNOLLY Attending Clinician Unavailable Carlene Montgomery S Attending Clinician Kaylee Argueta MD Attending Clinician Dileep Connolly MD Attending Clinician SHAHBAZ BUENROSTRO Attending Clinician Unavailable SIDNEY SANFORD Attending Clinician Unavailable Randall Sands MD Attending Clinician Sidney Sanford DO Attending Clinician JENNIFER OLIVERA Attending Clinician Unavailable Jennifer Olivera MD Attending Clinician DOV BUENROSTRO Attending Clinician Unavailable Dontae Talley MD Attending Clinician Dov Buenrostro MD Attending Clinician NEGAR GUARDADO Attending Clinician Unavailable Vadim Ferreira APN Attending Clinician Negar Guardado DO Attending Clinician KAYLEE ARGUETA Attending Clinician Unavailable Mario Urbina Attending Clinician KIRIT LARA Attending Clinician Unavailable Vito Mckeon MD Attending Clinician Thomas León MD Attending Clinician Tao NUNO, Daliy Dailey Attending Clinician Kirit Lara MD Attending Clinician Unavailable COURTNEY MENDES Attending Clinician Unavailable Courtney Mendes MD Attending Clinician Akash Alexis Attending Clinician AKASH ALEXIS Attending Clinician Unavailable Josemanuel Samayoa Attending Clinician Roger NEFF Attending Clinician Unavailable Roger Lam Attending Clinician LAMINE SERNA Attending Clinician Unavailable Lamine Serna MD Attending Clinician STEPHANIE BALDERRAMA Attending Clinician Unavailable Stephanie Lopez Attending Clinician LYNETTE FONSECA Attending Clinician Unavailable Lynette Fonseca NP Attending Clinician Only, Ang Db Test Attending Clinician Unavailable Sierra Lundberg MD Attending Clinician SIERRA LUNDBERG Attending Clinician Unavailable Brittany Preciado Attending Clinician BRITTANY HELMS Attending Clinician Unavailable DICKSON MEDRANO Attending Clinician Unavailable Zahra De Jesus Attending Clinician Ruth Quesada Attending Clinician JAQUELIN GENAO Attending Clinician Unavailable AURORA MARTINEZ Admitting Clinician Unavailable Aurora Martinez MD Admitting Clinician DILEEP CONNOLLY Admitting Clinician Unavailable Cathleen NUNO, Dileep Admitting Clinician SIDNEY SANFORD Admitting Clinician Unavailable DOV BUENROSTRO Admitting Clinician Unavailable Chitra NUNO, Dov Admitting Clinician NEGAR GUARDADO Admitting Clinician Unavailable Negar Guardado DO Admitting Clinician KAYLEE ARGUETA Admitting Clinician Unavailable Kaylee Argueta MD Admitting Clinician VITO MCKEON Admitting Clinician Unavailable Vito Mckeon MD Admitting Clinician COURTNEY MENDES Admitting Clinician Unavailable Courtney Mendes MD Admitting Clinician Zahra Whitt Admitting Clinician ZAHRA WHITT Admitting Clinician Unavailable Josemanuel [place] Admitting Clinician Roger NEFF Admitting Clinician Unavailable STEPHANIE BALDERRAMA Admitting Clinician Unavailable LYNETTE FONSECA Admitting Clinician Unavailable ROBERT JOHNSON Admitting Clinician Unavailable Dalton Molina Admitting Clinician Ruth Quesada Admitting Clinician JAQUELIN GENAO Admitting Clinician Unavailable Payers Payer Name Policy Type Policy Number Effective Date Expiration Date S samir [facility] [id number] 2020 PLUS 00:00:00 [facility] [id number] 2020 00:00:00 Problems Condition Condition Condition Status Onset Resolution Last Treating Co mments Source Name Details Category Date Date Treatment Clinician Date Chest pain Chest pain Disease Active Kiera ramsey 02-15 ity of 00:00: [place] 00 Medical Branch Foot ulcer Foot ulcer Disease Active Overview : Univers with fat with fat 02-14 Formattin ity of layer layer 00:00: g of this [place] exposed, exposed, 00 note Medica l left left might be Branch different from the original. Added automatic ally from request for surgery [id number] Right foot Right foot Disease Active Overview : Univers ulcer, ulcer, 803 Formattin ity of with fat with fat 00:00: g of this Tim as layer layer 00 note Medical exposed exposed might be Branch different from the original. Added automatic ally from request for surgery [id number] Diabetic Diabetic Disease Active Unive rs ketoacidos ketoacidos 02-06 it [place] of [place] coma 00 Medical associated associated Br anch with type with type 1 diabetes 1 diabetes mellitus mellitus Abdominal Abdominal Disease Active Uni vers pain, pain, 6-24 ity of unspecifie unspecifie [place] d [place] 00 Medical abdominal abdominal Bran ch location location Hyperglyce Hyperglyce Disease Active U braulio pedro pedro 12-19 ity of 00:00: [place] 00 Medical Branch Diabetic Diabetic Disease Active Unive rs ketoacidos ketoacidos 6-05 it y of is without is without [place] coma 00 Medical associated associated Br anch with type with type 2 diabetes 2 diabetes mellitus mellitus Decubitus Decubitus Disease Active Uni vers ulcer of ulcer of 05 ity of heel, heel, 00:00: [place] left, left, 00 Medical unstageabl unstageabl Br anch e e Pyuria Pyuria Disease Active Univers 605 ity of 00:00: [place] 00 Medical Branch Chronic Chronic Disease Active Univers suprapubic suprapubic 6 it y of catheter catheter 00:00: Medical Branch Uncontroll Uncontroll Disease Active U braulio ed ed 6 ity of diabetes diabetes 00:00: [place] mellitus mellitus 00 Medica l with with Branch complicati complicati ons ons Spina Spina Disease Recurre Univers bifida bifida nce 6 ity of 00:00: 00 Medical Branch Wound Wound Disease Active Univers infection infection - ity of 00:00: 00 Medical Branch Chills Chills Disease Active Univers 5-11 ity of 00:00: Medical Branch POSSIBLE POSSIBLE Diagnosis Active 2021-11-01 Memoria 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 PROFESSIONAL SHUNT 10-20 21:48:00 l MALFUNCTIO MALFUNCTIO 00:00: He rmann N N Active 00 10/20/2021 [facility] 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 PROFESSIONAL SHUNT Diagnosis Active 2021-10-11 Memoria MALFUNCTIO MALFUNCTIO - 14:12:00 l N N Active 00:00: Jason 10/06/2021 00 [facility] 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 PROFESSIONAL SHUNT Diagnosis Active 2021-10-05 Memoria MALFUCTION MALFUCTION 10-05 23:59:00 l Active 00:00: Jason 10/05/2021 00 [facility] Complicate Complicate Disease Active U nivers d urinary d urinary 1-20 ity of tract tract 00:00: [place] infection infection 00 [facility] Branch Hyperglyce Hyperglyce Disease Active [facility] pedro pedro 07-21 [facility] without without 00:00: Medical ketosis ketosis 00 [place] HEADACHE HEADACHE Diagnosis Active 2017-072018-05-27 Memoria Active 07-22 22:05:00 l 05/22/2018 00:00: [facility] [address] SHUNT SHUNT Diagnosis Active 2017-11-14 Mem oria MALFUNCTIO MALFUNCTIO 11-14 20:00:00 l N N Active 00:00: Jason 11/14/2017 00 [facility] ACUTE ACUTE Diagnosis Active 2017-11-20 Mem oria HEADACHE HEADACHE - 09:20:00 l Active 00:00: Jason 11/14/2017 00 [facility] Spina Spina Disease Active [facility]: Medical 00 [place] Pyelonephr Pyelonephr Disease Active [facility] itis itis 6-11 [facility] 00:00: Medical [address] [place] [address] Morbid Morbid Disease Active Univers obesity obesity 1-04 ity of with body with body 00:00: Vinny s mass index mass index 00 Me dical of of Branch 40.0-49.9 40.0-49.9 Asthma Asthma Problem Resolve 2021-10-27 Mem oria (disorder) (disorder) d 23:48:47 l Resolved Jason Problem 10/27/2021 [facility] Bronchitis Bronchiti Problem Resolve 2021-10-27 Memoria (disorder) s d 23:48:47 l (disorder) Christian n Resolved Problem 10/27/2021 [facility] 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-27 Memoria palsy palsy d 23:48:47 l (disorder) (disorder) He rmann Resolved Problem 10/27/2021 [facility] Hydrocepha Hydroceph Problem Resolve 2021-10-27 Memoria bam alus d 23:48:47 l (disorder) (disorder) He rmann Resolved Problem 10/27/2021 [facility] Osteomyeli Osteomyel Problem Resolve 2021-10-27 Memoria tis itis d 23:48:47 l (disorder) (disorder) He rmann Resolved Problem 10/27/2021 [facility] Acute pain Acute Problem Active 2021-10-27 Memoria (finding) pain 23:48:47 l (finding) Jason Active Problem 10/27/2021 [facility] Headache Headache Problem Active 2021-10-27 Memoria (finding) (finding) 23:48:47 l Active [facility]off Problem 10/27/2021 [facility] Morbid Morbid Problem Active 2021-10-27 Erwin benjamin obesity obesity 23:48:47 l (disorder) (disorder) He rmann Active Problem 10/27/2021 [facility] Providenci Providenc Problem Active 2021-10-27 Memoria a ia 23:48:47 l (organism) (organism) He ann Active Problem 10/27/2021 Problem added by Discern Expert. [facility] Spina Spina Problem 2018-12-09 Memor ia bifida, bifida, 14:14:02 l unspecifie unspecifie He rmann d d 12/09/2018 [facility] Nausea Nausea Problem 2018-12-09 Erwin benjamin with with 14:14:02 l vomiting, vomiting, Herm carly unspecifie unspecifie d d 12/09/2018 [facility] Diplopia Diplopia Problem 2018-12-09 Memoria 12/09/2018 14:14:02 l [facility] Cerebral Cerebral Problem 2018-12-09 Memoria palsy, palsy, 14:14:02 l unspecifie unspecifie Vero rmann d d 12/09/2018 [facility] Acquired 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-09 Memoria absence of absence of 14:14:02 l other other Jason specified specified parts of parts of digestive digestive tract tract 12/09/2018 [facility] Nicotine Nicotine Problem 2018-12-09 Memoria dependence dependence 14:14:02 l , , [facility] cigarettes cigarettes , , uncomplica uncomplica lester lester 12/09/2018 [facility] Presence Presence Problem 2018-12-09 Memoria of of 14:14:02 l cerebrospi cerebrospi Vero rmann nal fluid nal fluid drainage drainage device device 12/09/2018 [facility] Allergy Allergy Problem 2018-12-09 Me moria status to status to 14:14:02 l other other [place]off antibiotic antibiotic agents agents status status 12/09/2018 [facility] Allergy Allergy Problem 2018-12-09 Me moria status to status to 14:14:02 l other other Roff drugs, drugs, medicament medicament s and s and biological biological substances substances status status 12/09/2018 [facility] Allergy Allergy Problem 2018-12-09 Me moria status to status to 14:14:02 l narcotic narcotic Christian n agent agent status status 12/09/2018 [facility] History of Past Illness Condition Condition Condition Status Onset Resolution Last Treating Co mments Source Name Details Category Date Date Treatment Clinician Date Headache Headache Problem 2017-072018-12-09 2018-12-09 Memoria 05/22/2018- 14:14:02 14:14:02 l 12/09/2018 06:00: [facility] [address] Allergies, Adverse Reactions, Alerts Allergy Allergy Status [...] s Branch METOCLOP DRUG Active N/V 2016-07 [facility] RAMIDE INGREDI 2-20 ity of HCL 00:00: [place] 00 Medical Branch SULFAMET Allergy Active High Hives 2017- [facility] [...] S 00 Center SESAME Allergy Active Hives [facility]11 [facility] 00:[facility]: Medical [facility] Center ONDANSET Allergy Active N\\T\\V 2016- [facility] KUMAR HCL 6-11 [facility] (PF) 00:00: Medical 00 Center Sulfamet Propensi Active Hives 2016- [facility] hoxazole ty to 6-11 [facility] -Trimeth adverse 00:00: Medical oprim reaction 00 Center s Levoflox Propensi Active Hives 2016- [facility] acin ty to 6-11 [facility] adverse 00:00: Medical reaction 00 Center s Morphine Propensi Active Hives 2016- [facility] ty to 6-11 [facility] adverse 00:00: Medical reaction 00 Center s Sesame Propensi Active Hives 2016- [facility] Seed ty to 6-11 [facility] [...] Branch Sulfamet Propensi Active Other - See 2017 U nivers hoprim ty to comments - [...] Rash 0 Univer s hoxazole ty to 7-19 ity of adverse 00:00: [place] reaction 00 Medical s Branch Ondanset Propensi Active Nausea 0 Univer s kumar Hcl ty to and/or 719 ity of (Pf) adverse Vomiting 00:00: [place] reaction 00 Medical s Branch SULFAMET DRUG Active Rash 0 Univers HOXAZOLE INGREDI 7-19 ity of 00:00: [...] LEVOFLOX DRUG Active Hives Univers ACIN INGREDI 5- ity of 00:00: [place] 00 Medical Branch MORPHINE DRUG Active Hives 2007-0 Univers INGREDI 5-23 ity of 00:00: [place] 00 Medical Branch KETOROLA DRUG Active N/V 2007-0 Univers C INGREDI 12-04 ity of TROMETHA 00:00: [place] [facility] 00 Medical Branch amoxicil amoxicil Active Memori [place] morphine morphine Active Memori a l Roff Toradol Toradol Active Memoria l [facility]off Minocin Minocin Active Memoria l [facility] Zofran Zofran Active Memoria l [place] Levaquin Levaquin Active Memori a l Jason Bactrim Bactrim Active Memoria l Jason Reglan Reglan Active Memoria l [place] Morphine Adverse Active Info Not Commo n Sulfate Reaction Available [facility] Levaquin Adverse Active Info Not Commo n Reaction Available [facility] Zofran Adverse Active Info Not Common Reaction Available [facility] Family History Family Member Diagnosis Comments Start Date Stop Date Source Natural father Diabetes [facility] Natural mother No Significant Univer sity of [facility] Medical [place] Social History Social Habit Start Date Stop Date Quantity Comments Source History [facility] o f Alcohol Frequency [facility] edical Branch History SDAR University o f Alcohol Std Drinks [facility] History [facility] o f Alcohol Binge [place] [facility] al Branch History of tobacco Cigarette Smoker University of use [facility] Alcohol intake 2022-02-21 2022-02-21 Current drinker Unive rsity of 00:00:00 00:00:00 of alcohol [facility] [place] [facility] (finding) Branch Alcohol Comment 2022-02-15 2022-02-15 once a year Universi ty of 00:00:00 00:00:00 [facility] Exposure to 2022-02-04 2022-02-14 Not sure [facility] SARS-CoV-2 (event) 00:00:00 23:25:00 [facility] Tobacco use and 2021-11-22 2021-11-22 Smokeless Universit y of exposure 00:00:00 00:00:00 tobacco non-user [facility] dical [place] Social History 2021-10-06 2021-10-06 [facility] 05:57:00 05:57:00 Cigarettes smoked 2016-12-23 2016-12-23 [facility] current (pack per 00:00:00 00:00:00 Medical Center ) - Reported Sex [birth year] At [birth year] DEDE Yañez 00:00:00 00:00:00 Medical Center Smoking Status Start Date Stop Date Source Social History 2018-05-22 11:26:10 [facility] Medications Ordered Filled Start Stop Current Ordering Indication Dosage Frequency Signature Comments Components Source Medication Medication Date Date Medication? Clinician (SIG) Name Name insulin Yes 26U 26 Units, Unive rs glargine 14 Subcutaneo ity o f (LANTUS 02:00: us, [facility], [place] U-100) 00 First dose Medical injection (after Branch 26 Units last modificati on) on 02/24/22 at 2100, Until Discontinu ed, Routine insulin 2021- No 24U 24 Units, Univ ers glargine 02-23 Subcutaneo ity of (LANTUS 20:38: 20:43 us, ONCE, [place] U-100) 00 :00 1 dose, On Medical injection Fri Branch 24 Units 02/23/22 at 1545, SAHARA sennosides- Yes 1{tbl} 1 tablet, Univers docusate 02-23 Oral, ity of sodium 14:00: DAILY, [place] (SENOKOT-S) 00 First dose Me dical 8.6-50 mg on Fri Branch per tablet 02/23/22 at 1 tablet 0900, Until Discontinu ed, Routine polyethylen Yes 17g 17 g, Unive rs e glycol 02-23 Oral, ity of 3350 powder 14:00: [place], [place] 17 g 00 First dose Medical on Fri Branch 02/23/22 at 0900, Until Discontinu ed, Routine insulin NPH 2021- No 16U 16 Units, Univers (HUMULIN N) 02-23 Subcutaneo i ty of injection 14:00: 17:23 us, [place] 16 Units 00 :36 QAM+HS, Medical First dose Branch (after last modificati on) on 02/23/22 at 0900, Until Discontinu ed, Routine Sliding Yes Subcutaneo Univ ers Scale 02-23 us, TID ity of Insulin - 13:00: MEALS+HS, Tim as Lispro 00 First dose Medical (HumaLOG) + (after Branch Fsbg last Testing modificati on) on Sat02/23/22 at 0800, Until Discontinu ed, Routine insulin NPH 2021- No 8U 8 Units, U nivers (HUMULIN N) 02-23 Subcutaneo i ty of injection 8 02:00: 12:34 us, QHS, [place] Units 00 :51 First dose Medical (after Branch last modificati on) on Libra 02/22/22 at 2100, Until Discontinu ed, Routine repaglinide Yes [id number] .5mg Take 1 Univers 0.5 mg 8-12 tablet by ity of tablet 00:00: mouth in [address] morning [place] and 1 tablet at noon and 1 tablet in the evening. Take before meals. sodium 2021-0 Yes [id number] Apply to Un ela hypochlorit 8-12 area(s) ity o f e 0.25% 00:00: daily. [place] solution [facility] repaglinide Yes [id number] .5mg Take 1 Univers 0.5 mg 8-12 tablet by ity of tablet 00:00: mouth in [address] morning [place] and 1 tablet at noon and 1 tablet in the evening. Take before meals. sodium 2021-0 Yes [id number] Apply to Un ela hypochlorit 8-12 area(s) ity o f e 0.25% 00:00: daily. [place] solution [facility] Branch repaglinide 2021-0 Yes [id number] .5mg Take 1 Univers 0.5 mg 8-12 tablet by ity of tablet 00:00: mouth in [address] morning [place] and 1 tablet at noon and 1 tablet in the evening. Take before meals. sodium 2021-0 Yes [id number] Apply to Un ela hypochlorit 8-12 area(s) ity o f e 0.25% 00:00: daily. [place] solution [facility] repaglinide 2021-0 Yes [id number] .5mg Take 1 Univers 0.5 mg 8-12 tablet by ity of tablet 00:00: mouth in [address] morning [place] and 1 tablet at noon and 1 tablet in the evening. Take before meals. sodium Yes [id number] Apply to Un ela hypochlorit 02-23 area(s) ity o f e 0.25% 00:00: daily. [place] solution 00 [facility] apixaban 5 2021- Yes 5mg Take 1 Univ ers mg tablet 02-23 tablet by ity of 00:00: 04:59 mouth in [place] 00 :00 the [facility] and 1 tablet in the evening. Do all this for 30 days. Indication s: Symtomatic Superficia l Vein thrombosis insulin 2021- Yes [id number] 24U inject 24 Univers glargine 02-23 Units ity of 100 unit/mL 00:00: 04:59 under the [place] injection 00 :00 skin at [facility] for 30 days. metFORMIN 2021- Yes [id number] 500mg Take 1 Univers 500 mg 02-23 tablet by ity of tablet 00:00: 04:59 mouth in [place] 00 :00 [facility] and 1 tablet in the evening. Take with meals. Do all this for 30 days. dulaglutide 2021- Yes [id number] .75mg inject 1 Univers (TRULICITY) 02-23 Pen under it y of 0.75 mg/0.5 00:00: 04:59 the skin [place] mL PnIj 00 :00 weekly for Medica l 30 days. Branch apixaban 5 2021- Yes 5mg Take 1 Univ ers mg tablet 02-23 tablet by ity of 00:00: 04:59 mouth in [place] 00 :00 [facility] and 1 tablet in the evening. Do all this for 30 days. Indication s: Symtomatic Superficia l Vein thrombosis insulin 2021- Yes [id number] 24U inject 24 Univers glargine 02-23 Units ity of 100 unit/mL 00:00: 04:59 under the [place] injection 00 :00 skin at [facility] for 30 days. metFORMIN 2021- Yes [id number] 500mg Take 1 Univers 500 mg 02-23 tablet by ity of tablet 00:00: 04:59 mouth in [place] 00 :00 the [facility] morning Branch and 1 tablet in the evening. Take with meals. Do all this for 30 days. dulaglutide 2021- Yes [id number] .75mg inject 1 Univers (TRULICITY) 02-23 Pen under it y of 0.75 mg/0.5 00:00: 04:59 the skin [place] mL PnIj 00 :00 weekly for Medica l 30 days. Branch apixaban 5 2021- Yes 5mg Take 1 Univ ers mg tablet 02-23 tablet by ity of 00:00: 04:59 mouth in [place] 00 :00 the [facility] morning Branch and 1 tablet in the evening. Do all this for 30 days. Indication s: Symtomatic Superficia l Vein thrombosis insulin 2021- Yes [id number] 24U inject 24 Univers glargine 02-23 Units ity of 100 unit/mL 00:00: 04:59 under the [place] injection 00 :00 skin [facility] Branch for 30 days. metFORMIN 2021- Yes [id number] 500mg Take 1 Univers 500 mg 02-23 tablet by ity of tablet 00:00: 04:59 mouth in [place] 00 :00 the [facility] and 1 tablet in the evening. Take with meals. Do all this for 30 days. dulaglutide 2021- Yes [id number] .75mg inject 1 Univers (TRULICITY) 02-23 Pen under it y of 0.75 mg/0.5 00:00: 04:59 the skin [place] mL PnIj 00 :00 weekly for Medica l 30 days. Branch apixaban 5 2021- Yes 5mg Take 1 Univ ers mg tablet 02-23 tablet by ity of 00:00: 04:59 mouth in [place] 00 :00 the [facility] morning Branch and 1 tablet in the evening. Do all this for 30 days. Indication s: Symtomatic Superficia l Vein thrombosis insulin 2021- Yes [id number] 24U inject 24 Univers glargine 02-23 Units ity of 100 unit/mL 00:00: 04:59 under the [place] injection 00 :00 skin [facility] bedtime Branch for 30 days. metFORMIN 2021- Yes [id number] 500mg Take 1 Univers 500 mg 02-23 tablet by ity of tablet 00:00: 04:59 mouth in [place] 00 :00 the [facility] and 1 tablet in the evening. Take with meals. Do all this for 30 days. dulaglutide 2021- Yes [id number] .75mg inject 1 Univers (TRULICITY) 02-23 Pen under it y of 0.75 mg/0.5 00:00: 04:59 the skin [place] mL PnIj 00 :00 weekly for Medica l 30 days. Branch linezolid 2021- Yes [id number] 600mg Take 1 Univers 600 mg 02-23 tablet by ity of tablet 00:00: 04:59 mouth [place] 00 :00 every 12 [facility] [place] hours for 14 days. fluconazole 2021- Yes [id number] 400mg Take 2 Univers 200 mg 02-23 tablets by ity of tablet 00:00: 04:59 mouth in [place] 00 :00 the [facility] for 14 days. ciprofloxac 2021- Yes [id number] 500mg Take 2 Univers in HCl 250 02-23 tablets by it y of mg tablet 00:00: 04:59 mouth in [facility] as 00 :00 the [facility] and 2 tablets in the evening. Do all this for 14 days. linezolid 2021- Yes [id number] 600mg Take 1 Univers 600 mg 02-23 tablet by ity of tablet 00:00: 04:59 mouth [place] 00 :00 every 12 [facility] (twelve) [place] hours for 14 days. fluconazole 2021- Yes [id number] 400mg Take 2 Univers 200 mg 8-27 tablets by ity of tablet 00:00: 04:59 mouth in [place] 00 :00 the [facility] for 14 days. ciprofloxac 2021- Yes [id number] 500mg Take 2 Univers in HCl 250 02-23- tablets by it y of mg tablet 00:00: 04:59 mouth in [place] 00 :00 the Medical morning Branch and 2 tablets in the evening. Do all this for 14 days. linezolid 2021- Yes [id number] 600mg Take 1 Univers 600 mg 8-12 08-27 tablet by ity of tablet 00:00: 04:59 mouth [place] 00 :00 every 12 [facility] [place] hours for 14 days. fluconazole 2021-2021- Yes [id number] 400mg Take 2 Univers 200 mg 8-12 08-27 tablets by ity of tablet 00:00: 04:59 mouth in [place] 00 :00 the [facility] for 14 days. ciprofloxac 2021- Yes [id number] 500mg Take 2 Univers in HCl 250 8- 08-27 tablets by it y of mg tablet 00:00: 04:59 mouth in [place] 00 :00 the [facility] Branch and 2 tablets in the evening. Do all this for 14 days. linezolid 2021- Yes [id number] 600mg Take 1 Univers 600 mg 8- 08-27 tablet by ity of tablet 00:00: 04:59 mouth [place] 00 :00 every 12 [facility] [place] hours for 14 days. fluconazole 2021- Yes [id number] 400mg Take 2 Univers 200 mg 8-06 21-27 tablets by ity of tablet 00:00: 04:59 mouth in [place] 00 :00 the [facility] for 14 days. ciprofloxac 2021- Yes [id number] 500mg Take 2 Univers in HCl 250 8-27 tablets by it y of mg tablet 00:00: 04:59 mouth in [place] 00 :00 the [facility] Branch and 2 tablets in the evening. Do all this for 14 days. gabapentin 2021-2021- Yes [id number] 300mg Take 1 Univers 300 mg 8- 08-20 capsule by ity of capsule 00:00: 04:59 mouth in [place] 00 :00 the [facility] morning Branch and 1 capsule at noon and 1 capsule in the evening. Do all this for 7 days. gabapentin 2021-2021- Yes [id number] 300mg Take 1 Univers 300 mg 8- 08-20 capsule by ity of capsule 00:00: 04:59 mouth in [place] 00 :00 the [facility] Branch and 1 capsule at noon and 1 capsule in the evening. Do all this for 7 days. gabapentin 2021- Yes [id number] 300mg Take 1 [facility] 300 mg 02-23 capsule by ity of capsule 00:00: 04:59 mouth in [place] 00 :00 the [facility] and 1 capsule at noon and 1 capsule in the evening. Do all this for 7 days. gabapentin 2021- Yes [id number] 300mg Take 1 [facility] 300 mg 02-23 capsule by ity of capsule 00:00: 04:59 mouth in [place] 00 :00 the [facility] and 1 capsule at noon and 1 capsule in the evening. Do all this for 7 days. sodium 2021- No [id number] Apply to [facility] hypochlorit 02-23 area(s) ity of e 0.25% 00:00: 00:00 daily. [place] solution 00 :00 [facility] repaglinide 2021- No [id number] .5mg Take 1 Univers 0.5 mg 02-23 tablet by ity of tablet 00:00: 00:00 mouth in [place] 00 :00 the [facility] and 1 tablet at noon and 1 tablet in the evening. Take before meals. Do all this for 30 days. Sliding 2021- No Subcutaneo Uni vers Scale 02-22 , TID ity of Insulin - 22:00: 12:34 MEALS+HS, [place] Lispro 00 :51 First dose Medical (HumaLOG) + (after [place] [facility] last Testing modificati on) on Libra 02/22/22 at 1700, Until Discontinu ed, Routine acetaminoph Yes 1000mg 1,000 mg, Univers en 8 Oral, Q8H, ity of (TYLENOL) 19:00: First dose [place] tablet 00 on [facility] Medical 1,000 mg 02/22/22 at [facility] 1400, Until Discontinu ed, Routine methocarbam Yes 500mg 500 mg, Un ela oL 8 Oral, Q6H, ity of (ROBAXIN) 17:00: First dose [place] tablet 500 00 on [facility] Medical mg 02/22/22 at Branch 1200, Until Discontinu ed, Routine Sliding No Subcutaneo Uni vers Scale 02-22 us, TID ity of Insulin - 17:00: 19:31 MEALS+HS, [place] Lispro 00 :30 First dose Medical (HumaLOG) + (after Branch [facility] last Testing modificati on) on [facility] 02/22/22 at 1200, Until Discontinu ed, Routine insulin NPH Yes 24U 24 Units, U nivers (HUMULIN N) 02-22 Subcutaneo it y of injection 14:00: us, QAM, [place] 24 Units 00 First dose Medic al (after Branch last modificati on) on [facility] 02/22/22 at 0900, Until Discontinu ed, Routine insulin NPH No 20U 20 Units, Univers (HUMULIN N) 02-22 Subcutaneo i ty of injection 14:00: 19:31 us, QAM, [place] 20 Units 00 :02 First dose Medic al (after Branch last modificati on) on [facility] 02/22/22 at 0900, Until Discontinu ed, Routine insulin Yes 5U 5 Units, Univer s lispro 02-22 Subcutaneo ity of (human) 13:45: us, TID [place] (HumaLOG 00 MEALS, Medical U-100) First dose Branch injection 5 (after Units last modificati on) on [facility] 02/22/22 at 0845, Until Discontinu ed, Routine apixaban Yes 5mg 5 mg, Univers (ELIQUIS) 02-22 Oral, BID, ity of tablet 5 mg 13:00: First dose [place] 00 on [facility] Medical 02/22/22 at Branch 0800, Until Discontinu ed, Routine
Indicatio ns: DVT/PE celecoxib Yes 100mg 100 mg, Univ ers (CELEBREX) 02-22 Oral, BID ity of capsule 100 13:00: MEALS, [place] mg 00 First dose Medical on [facility] Branch 02/22/22 at 0800, Until Discontinu ed, Routine gabapentin Yes 300mg 300 mg, Uni vers (NEURONTIN) 02-22 Oral, TID, it y of capsule 300 13:00: First dose [place] mg 00 on [facility] Medical 02/22/22 at Branch 0800, Until Discontinu ed, Routine HYDROmorpho Yes 4mg 4 mg, Unive rs ne 02-22 Oral, TID, ity of (DILAUDID) 13:00: First dose [place] tablet 4 mg 00 (after Medica l last Branch modificati on) on Sat02/22/22 at 0800, Until Discontinu ed, Routine linezolid 2021- No 600mg 600 mg, Uni vers (ZYVOX) 02-22 Oral, ity of tablet 600 03:15: 03:49 Q12H, 1 [place] mg 00 :00 dose, Medical First dose Branch on Sat02/21/22 at 2215, SAHARA
Re ason for Anti-Infec tive: Documented Infection< br>Documen lester Infection Site: Skin / Soft Tissue
Duration of Therapy: 7 days
Re stricted use approved by: MARK ROONEY, ADULT ID heparin 2021- No 5000U 5,000 Univers (porcine) 02-22 Units, ity of injection 01:00: 12:21 Subcutaneo [place] 5,000 Units 00 :15 us, BID, Medi efrain First dose Branch on Sat02/21/22 at 2000, Until Discontinu ed, Routine insulin Yes 10U 10 Units, Unive rs lispro 02-21 Subcutaneo ity of (human) 22:00: us, TID [place] (HumaLOG 00 MEALS, Medical U-100) First dose Branch injection (after 10 Units last modificati on) on Sat02/21/22 at 1700, Until Discontinu ed, Routine insulin NPH Yes 20U 20 Units, U nivers (HUMULIN N) 02-21 Subcutaneo it y of injection 22:00: us, QPM, [place] 20 Units 00 First dose Medic al (after Branch last modificati on) on Sat02/21/22 at 1700, Until Discontinu ed, Routine insulin NPH 2021- No 20U 20 Units, Univers (HUMULIN N) 02-21 Subcutaneo i ty of injection 22:00: 13:38 us, QPM, [place] 20 Units 00 :17 First dose Medic al (after Branch last modificati on) on Sat02/21/22 at 1700, Until Discontinu ed, Routine HYDROmorpho Yes 4mg 4 mg, Unive rs ne 02-21 Oral, ity of (DILAUDID) 15:00: TIDPRN, [place] tablet 4 mg 00 Starting Medi efrain on Sat02/21/22 at 1000, Until Discontinu ed, Routine, Pain (scale 7-10) HYDROmorpho 2021- No 4mg 4 mg, Univ ers ne 02-21 Oral, ity of (DILAUDID) 15:00: 11:04 TIDPRN, [place] tablet 4 mg 00 :00 Starting Medi efrain on Sat02/21/22 at 1000, Until Libra 02/22/22 at 0604, Routine, Pain (scale 7-10) insulin NPH 2021- No 20U 20 Units, Univers (HUMULIN N) 02-21 Subcutaneo i ty of injection 14:00: 18:34 us, QAM, [place] 20 Units 00 :03 First dose Medic al (after Branch last modificati on) on Sat02/21/22 at 0900, Until Discontinu ed, Routine Sliding Yes Subcutaneo Univ ers Scale 8-10 us, TID ity of Insulin - 13:00: MEALS+HS, [place] Lispro 00 First dose Medical (HumaLOG) + (after Branch Fsbg last Testing modificati on) on Sat02/21/22 at 0800, Until Discontinu ed, Routine Sliding 2021- No Subcutaneo Uni vers Scale 8-10 -11 us, TID ity of Insulin - 13:00: 13:39 MEALS+HS, [place] Lispro 00 :23 First dose Medical (HumaLOG) + (after Branch Fsbg last Testing modificati on) on Sat02/21/22 at 0800, Until Discontinu ed, Routine FENTanyl PF No 25ug 25 mcg, Un ela (SUBLIMAZE 02-21 Slow IV ity o f (PF)) 03:00: 03:26 Push, [place] injection 00 :00 ONCE, 1 Medical 25 mcg dose, On Branch Sat02/20/22 at 2200, Routine Sliding 2021- No Subcutaneo Uni vers Scale 02-20 us, TID ity of Insulin - 22:00: 12:44 MEALS+HS, [place] Lispro 00 :50 First dose Medical (HumaLOG) + (after Branch Fsbg last Testing modificati on) on Sat02/20/22 at 1700, Until Discontinu ed, Routine insulin NPH 2021- No 30U 30 Units, Univers (HUMULIN N) 02-20 Subcutaneo i ty of injection 22:00: 12:44 us, QPM, [place] 30 Units 00 :50 First dose Medic al (after Branch last modificati on) on Sat02/20/22 at 1700, Until Discontinu ed, Routine FENTanyl PF 2021- No 25ug 25 mcg, Un ela (SUBLIMAZE 02-20 Slow IV ity o f (PF)) 17:54: 18:30 Push, [place] injection 44 :23 Q5MIN PRN, Medi efrain 25 mcg 4 doses, Branch Starting on Sat02/20/22 at 1254, Until Sat02/20/22 at 1330, Routine, Pain (scale 7-10), PACU ketamine 2021- No Intravenou [place] (KETALAR) 02-20 s, ONCE ity of injection 17:26: 17:56 INTRA [place] 00 :00 PROCEDURE, Medical Starting Branch on Sat02/20/22 at 1226, Until Sat02/20/22 at 1256, Routine, Intra-op clindamycin 2021- No IV Unive rs in 5 % 02-20 Piggyback, ity of dextrose 17:18: 17:56 ONCE INTRA [place] (CLEOCIN) 00 :00 PROCEDURE, Medi efrain 900 mg/50 Starting Branch mL IV on Sat piggyback 02/20/22 at RTU 1218, Until Sat02/20/22 at 1256, Administer over 30 Minutes, Intra-op bupivacaine 2021- No PRN, Unive rs (preserv 02-20 Starting ity of free) 0.5% 17:00: 17:54 on Sat [place] (SENSORCAIN 00 :05 02/20/22 at [facility] ical E MP) 0.5 1200, Branch % (5 mg/mL) Intra-op 10 mL, lidocaine 1% (PF) (XYLOCAINE) 10 mL phenylephri 2021- No Intravenou Univers ne 02-20 s, ONCE ity of (VAZCULEP) 16:41: 17:56 INTRA [place] injection 00 :00 PROCEDURE, Medi efrain Starting Branch on Sat02/20/22 at 1141, Until Sat02/20/22 at 1256, Routine, Intra-op dexmedeTOMI 2021- No Intravenou Univers Dine 02-20 s, ONCE ity of (PRECEDEX) 16:31: 17:56 INTRA [place] injection 00 :00 PROCEDURE, Medi efrain Starting Branch on Sat02/20/22 at 1131, Until Sat02/20/22 at 1256, Routine, Intra-op propofoL IV 2021- No IV Unive rs infusion 02-20 Infusion, ity o f 16:31: 17:56 CONTINUOUS [place] 00 :00 PRN, Medical Starting Branch on Sat02/20/22 at 1131, Until Sat02/20/22 at 1256, Routine, Intra-op FENTanyl PF 2021- No Epidural, Univers (SUBLIMAZE 02-20 ONCE INTRA it y of (PF)) 16:31: 17:56 PROCEDURE, [place] injection 00 :00 Starting Medica l on Sat Branch 02/20/22 at 1131, Until Sat02/20/22 at 1256, Routine, Intra-op midazolam 2021- No IV [place], Uni vers (VERSED) 02-20 ONCE INTRA ity of injection 16:31: 17:56 PROCEDURE, [place] 00 :00 Starting Medical on Sat Branch 02/20/22 at 1131, Until Sat02/20/22 at 1256, Routine, Intra-op lactated 2021- No IV Univers ringers IV 02-20 Infusion, ity of infusion 16:25: 17:56 CONTINUOUS [place] 00 :00 PRN, Medical Starting Branch on Sat02/20/22 at 1125, Until Sat02/20/22 at 1256, Routine, Intra-op insulin NPH No 34U 34 Units, Univers (HUMULIN N) 02-20 Subcutaneo i ty of injection 14:00: 12:44 us, QAM, [place] 34 Units 00 :50 First dose Medic al (after Branch last modificati on) on Sat02/20/22 at 0900, Until Discontinu ed, Routine insulin No 14U 14 Units, [facility] ers lispro 02-20 Subcutaneo ity of (human) 13:00: 12:44 us, TID [place] (HumaLOG 00 :50 MEALS, Medical U-100) First dose Branch injection (after 14 Units last modificati on) on Sat02/20/22 at 0800, Until Discontinu ed, Routine insulin NPH No 32U 32 Units, Univers (HUMULIN N) 02-19 Subcutaneo i ty of injection 22:00: 12:53 us, QPM, [place] 32 Units 00 :44 First dose Medic al (after Branch last modificati on) on Sat02/19/22 at 1700, Until Discontinu ed, Routine HYDROmorpho No 4mg 4 mg, Univ ers ne 02-19 Oral, ity of (DILAUDID) 16:30: 14:59 BIDPRN, [place] tablet 4 mg 00 :38 Starting Medi efrain on Sat02/19/22 at 1130, Until Sat02/21/22 at 0959, Routine, Pain (scale 7-10) insulin NPH No 36U 36 Units, Univers (HUMULIN N) 02-19 Subcutaneo i ty of injection 14:00: 12:53 us, QAM, [place] 36 Units 00 :44 First dose Medic al (after Branch last modificati on) on Sat02/19/22 at 0900, Until Discontinu ed, Routine insulin 2021- No 15U 15 Units, Univ ers lispro 02-19 Subcutaneo ity of (human) 13:30: 12:53 us, TID [place] (HumaLOG 00 :44 MEALS, Medical U-100) First dose Branch injection (after 15 Units last modificati on) on Sat02/19/22 at 0830, Until Discontinu ed, Routine cholestyram Yes Topical Uni vers ine-nystati 02-19 (Apply To ity of n-zinc 13:00: Affected [place] oxide 00 Areas), Medical ointment BID, First Branc h 1:1:1 dose (COMPOUNDED (after ) last modificati on) on Sat02/19/22 at 0800, Until Discontinu ed, Routine cholestyram Yes Topical Uni vers ine-nystati 02-19 (Apply To ity of n-zinc 13:00: Affected [place] oxide 00 Areas), Medical ointment BID, First Branc h 1:1:1 dose (COMPOUNDED (after ) last modificati on) on Sat02/19/22 at 0800, Until Discontinu ed, Routine magnesium No 4g 4 g, IV Univ ers sulfate in 02-19 Piggyback, it y of water 4 12:00: 15:57 ONCE, 1 [place] gram/50 mL 00 :00 dose, On Medic al (8 %) IV Sat02/19/22 Branc h Piggyback 4 at 0700, g Routine eravacyclin No 1mg/kg 123 mg (1 Univers e (XERAVA) 02-19-09 mg/kg ?123 it y of 123 mg in 03:15: 00:10 kg), IV [place] NaCl 0.9% 00 :03 Infusion, Medic al (NS) 250 mL Q12H ABX, Bra nch IV infusion Administer over 60 Minutes, First dose on Sat02/18/22 at 2215, For 7 days insulin NPH 2021- No 38U 38 Units, Univers (HUMULIN N) 02-18 Subcutaneo i ty of injection 22:00: 13:14 us, QPM, [place] 38 Units 00 :25 First dose Medic al (after Branch last modificati on) on [place] 02/18/22 at 1700, Until Discontinu ed, Routine insulin No 18U 18 Units, Univ ers lispro 02-18 Subcutaneo ity of (human) 17:00: 13:15 us, TID [place] (HumaLOG 00 :02 MEALS, Medical U-100) First dose Branch injection (after 18 Units last modificati on) on [place] 02/18/22 at 1200, Until Discontinu ed, Routine insulin NPH 2021- No 37U 37 Units, Univers (HUMULIN N) 02-18 Subcutaneo i ty of injection 14:00: 14:15 us, QAM, [place] 37 Units 00 :14 First dose Medic al (after Branch last modificati on) on [place] 02/18/22 at 0900, Until Discontinu ed, Routine Sliding Subcutaneo Uni vers Scale 02-18 us, TID ity of Insulin - 02:00: 12:53 MEALS+HS, [place] Lispro 00 :44 First dose Medical (HumaLOG) + (after Branch Fsbg last Testing modificati on) on 02/17/22 at 2100, Until Discontinu ed, Routine HYDROmorpho No 2mg 2 mg, [facility] ne 02-18 Oral, ity of (DILAUDID) 00:17: 16:23 Q8HPRN, [place] tablet 2 mg 00 :26 Starting Medi efrain on Sat Branch 02/17/22 at 1917, Until 02/19/22 at 1123, Routine, Pain (scale 7-10) insulin 2021- No 17U 17 Units, [facility] ers lispro 02-17 Subcutaneo ity of (human) 22:00: 14:15 us, TID [place] (HumaLOG 00 :14 MEALS, Medical U-100) First dose Branch injection (after 17 Units last modificati on) on [facility] 02/17/22 at 1700, Until Discontinu ed, Routine insulin NPH 2021- No 35U 35 Units, Univers (HUMULIN N) 02-17 Subcutaneo i ty of injection 22:00: 13:38 us, QPM, [place] 35 Units 00 :53 First dose Medic al (after Branch last modificati on) on 02/17/22 at 1700, Until Discontinu ed, Routine Sliding Subcutaneo Uni vers Scale 02-17-06 us, Q4H, ity of Insulin - 21:00: 22:06 First dose [place] Lispro 00 :35 (after Medical (HumaLOG) + last Branch Fsbg modificati Testing on) on 02/17/22 at 1600, Until Discontinu ed, Routine HYDROmorpho 2021- No 4mg 4 mg, Univ ers ne 02-17 Oral, ity of (DILAUDID) 17:24: 00:17 Q8HPRN, [place] tablet 4 mg 27 :12 Starting Medi efrain on Sat Branch 02/17/22 at 1224, Until 02/17/22 at 1917, Routine, Pain (scale 7-10) sodium Yes Topical, Univers hypochlorit 8-06 DAILY, ity of e 0.25% 14:00: First dose [place] (DAKIN'S 00 on Sat Medical SOLUTION) 02/17/22 at Bran h solution 0900, Until Discontinu ed, SAHARA sodium Yes Topical, Univers hypochlorit 8-06 DAILY, ity of e 0.25% 14:00: First dose [place] (DAKIN'S 00 on Sat Medical SOLUTION) 02/17/22 at Branc h solution 0900, Until Discontinu ed, SAHARA insulin 2021- No 12U 12 Units, [facility] ers lispro 02-17 Subcutaneo ity of (human) 14:00: 19:55 us, TIDPC, [place] (HumaLOG 00 :31 First dose Medic al U-100) (after Branch injection last 12 Units modificati on) on 02/17/22 at 0900, Until Discontinu ed, Routine insulin NPH 2021- No 26U 26 Units, Univers (HUMULIN N) 02-17 Subcutaneo i ty of injection 14:00: 19:55 us, QAM, [place] 26 Units 00 :31 First dose Medic al (after Branch last modificati on) on 02/17/22 at 0900, Until Discontinu ed, Routine Sliding 2021- No Subcutaneo Uni vers Scale 02-17 08-06 us, TID ity of Insulin - 13:00: 19:55 MEALS+HS, [place] Lispro 00 :31 First dose Medical (HumaLOG) + on Sat Branch Fsbg 02/17/22 at Testing 0800, Until Discontinu ed, Routine glucagon Yes 1mg 1 mg, Univers (GLUCAGEN 02-17 Intramuscu ity of DIAGNOSTIC 12:22: lar, PRN, [place] KIT) 35 Starting Medical injection 1 on [facility] Branch mg 02/17/22 at 0722, Until Discontinu ed, SAHARA, Blood Glucose < or = 70 mg/dL and patient is unable to swallow or has mental changes. dextrose 50 0 Yes 25mL 25 mL, Univ ers % in water 02-17 Slow IV ity of (D50W) 12:22: Push, PRN, [place] injection 35 Starting Medica l 25 mL on [facility] Branch 02/17/22 at 0722, Until Discontinu ed, SAHARA, Blood Glucose < or = 70 mg/dL and patient is unable to swallow or has mental status changes. glucagon Yes 1mg 1 mg, Univers (GLUCAGEN 02-17 Intramuscu ity of DIAGNOSTIC 12:22: lar, PRN, [place] KIT) 35 Starting Medical injection 1 on [facility] Branch 02/17/22 at 0722, Until Discontinu ed, SAHARA, Blood Glucose < or = 70 mg/dL and patient is unable to swallow or has mental changes. dextrose 50 0 Yes 25mL 25 mL, Univ ers % in water 02-17 Slow IV ity of (D50W) 12:22: Push, PRN, [place] injection 35 Starting Medica l 25 mL on [facility] Branch 02/17/22 at 0722, Until Discontinu ed, SAHARA, Blood Glucose < or = 70 mg/dL and patient is unable to swallow or has mental status changes. HYDROmorpho 2021- No .2mg 0.2 mg, [place] ne 806 08-06 Slow IV ity of (DILAUDID) 01:49: 02:17 Push, PRN, [place] injection 34 :00 1 dose, Medical 0.2 mg Starting Branch on Sat02/16/22 at 204, Until Sat02/16/22 at 2116, Routine, Pain (scale 7-10)
U se approved by (Faculty): [facility] KCL 20 40meq 40 mEq, Univer s mEq/15 mL 02-16 Oral, ity of solution 40 23:30: 22:58 ONCE, 1 [place] mEq 00 :00 dose, On Medical Sat02/16/22 Branch at 1830, Routine Sliding Subcutaneo Uni vers Scale 02-16 us, Q4H, ity of Insulin - 22:15: 12:23 First dose [place] Lispro 00 :48 on Sat Medical (HumaLOG) + 02/16/22 at [facility] Fsbg 1715, Testing Until Discontinu ed, Routine insulin NPH 22U 22 Units, Univers (HUMULIN N) 02-16 Subcutaneo i ty of injection 22:00: 19:55 us, QPM, [place] 22 Units 00 :31 First dose Medic al (after Branch last modificati on) on Sat02/16/22 at 1700, Until Discontinu ed, Routine magnesium 4g 4 g, IV Univ ers sulfate in 02-16 Piggyback, it y of water 4 19:15: 20:22 ONCE, 1 [place] gram/50 mL 00 :00 dose, On Medic al (8 %) IV Sat02/16/22 Branc h Piggyback 4 at 1415, g Routine HYDROmorpho .2mg 0.2 mg, [place] ne 02-16 Slow IV ity of (DILAUDID) 18:00: 18:07 Push, [place] injection 00 :00 ONCE, 1 Medical 0.2 mg dose, On Branch Sat02/16/22 at 1300, Routine
Use approved by (Faculty): [facility] insulin 2021- No 6U 6 Units, Unive rs lispro 02-16 Subcutaneo ity of (human) 14:00: 00:41 us, TIDPC, [place] (HumaLOG 00 :23 First dose Medic al U-100) (after Branch injection 6 last Units modificati on) on 02/16/22 at 0900, Until Discontinu ed, Routine insulin NPH No 22U 22 Units, Univers (HUMULIN N) 02-16 Subcutaneo i ty of injection 14:00: 21:37 us, QAM, [place] 22 Units 00 :09 First dose Medic al on Fri Branch 02/16/22 at 0900, Until Discontinu ed, Routine HYDROmorpho .2mg 0.2 mg, [place] ne 02-16 Slow IV ity of (DILAUDID) 08:15: 07:57 Push, [place] injection 00 :00 ONCE, 1 Medical 0.2 mg dose, On Branch 02/16/22 at 0315, Routine
Use approved by (Faculty): [facility] HYDROcodone 1{tbl} 1 tablet, Univers -acetaminop 02-16 Oral, ity of hen (NORCO) 01:32: 17:25 Q6HPRN, [place] 10-325 mg 23 :31 Starting Medica l tablet 1 on [facility] Branch tablet 02/15/22 at 2032, Until 02/17/22 at 1225, Routine, Pain (scale 7-10) Sliding Subcutaneo Uni vers Scale 02-16 us, Q4H, ity of Insulin - 01:00: 21:37 First dose [place] lispro 00 :09 on [facility] Medical (humaLOG) + 02/15/22 at [facility] Fsbg 1999, Testing Until Discontinu ed, Routine meropenem No 1000mg 1,000 mg, Univers (MERREM) 02-16-08 IV ity of 1,000 mg in 00:15: 02:14 Piggyback, [place] NaCl 0.9% 00 :44 Q8H ABX, Medica l (NS) 50 mL 21 doses, Bran ch MINI-BAG First dose on [facility] 02/15/22 at 1915, Last dose on [facility] 02/22/22 at 1115, Administer over 3 Hours, 50 mL
Rest ricted use approved by: NAMRATA 8TH FLOOR
R keegan for Anti-Infec tive: Documented Infection< br>Documen lester Infection Site: Urine
D uration of Therapy: 7 days HYDROmorpho 2021- No .2mg 0.2 mg, [place] ne 02-16 Slow IV ity of (DILAUDID) 00:00: 23:13 Push, [place] injection 00 :00 ONCE, 1 Medical 0.2 mg dose, On Branch [facility]ra 02/15/22 at 1900, Routine
Use approved by (Faculty): [facility] HYDROmorpho 2021- No .2mg 0.2 mg, [place]a ne 02-15 Slow IV ity of (DILAUDID) 19:30: 18:59 Push, [place] injection 00 :00 ONCE, 1 Medical 0.2 mg dose, On Branch [facility] 02/15/22 at 1430, Routine
Use approved by (Faculty): [facility] cholestyram 2021- No Topical [place] ine-nystati 02-15 (Apply To it y of n-zinc 18:29: 12:46 Affected [place] oxide 12 :35 Areas), Medical ointment PRN, Branch 1:1:1 Starting (COMPOUNDED on Sat ) 02/15/22 at 1329, Until 02/19/22 at 0746, Routine, Wound care, Cuts, abrasions, and skin ulcers iopamidol 2021- No [id number] 60mL 60 mL, Univers (ISOVUE 02-15 Intravenou ity o f 370-500 mL) 17:25: 05:25 s, ONCE, 1 [place] injection 00 :00 dose, On Medica l 60 mL [facility]ra 02/15/22 Branch at 1230, Routine meropenem 2021- No 1000mg 1,000 mg, Univers (MERREM) 02-15 IV ity of 1,000 mg in 16:45: 20:14 Piggyback, [place] NaCl 0.9% 00 :00 ONCE, 1 Medical (NS) 50 mL dose, On Branc h MINI-BAG [facility] 02/15/22 at 1145, Administer over 30 Minutes, 50 mL
R estricted use approved by: NAMRATA 8TH FLOOR
R keegan for Anti-Infec tive: Documented Infection< br>Documen lester Infection Site: Urine
D uration of Therapy: 7 days pantoprazol 2021-0 Yes 40mg 40 mg, Univ ers e 02-15 Oral, ity of (PROTONIX) 14:00: DAILY, [place] EC tablet 00 First dose Medi efrain 40 mg on [facility] Branch 02/15/22 at 0900, Until Discontinu ed, Routine
Indicatio n for use: None of the above pantoprazol 0 Yes 40mg 40 mg, Univ ers e 02-15 Oral, ity of (PROTONIX) 14:00: DAILY, [place] EC tablet 00 First dose Medi efrain 40 mg on [facility] Branch 02/15/22 at 0900, Until Discontinu ed, Routine
Indicatio n for use: None of the above heparin 2021-0 Yes 5000U 5,000 Univers (porcine) 04 Units, ity of injection 13:00: Subcutaneo [place] 5,000 Units 00 us, Q12H, Med ical First dose Branch on Libra 02/15/22 at 0800, Until Discontinu ed, Routine heparin 2021-0 2021- No 5000U 5,000 Univers (porcine) 02-15 08-10 Units, ity of injection 13:00: 21:57 Subcutaneo [place] 5,000 Units 00 :33 us, Q12H, Med ical First dose Branch on Libra 02/15/22 at 0800, Until Discontinu ed, Routine NaCl 0.9% 0 Yes 10mL 10 mL, Univer s (NS) 02-15 Slow IV ity of injection 11:28: Push, PRN, [place] 10 mL 11 Starting Medical on [facility] Branch 02/15/22 at 0628, Until Discontinu ed, Routine, line maintenanc e lidocaine 2021-0 Yes 5mL 5 mL, Univers 1% (PF) 02-15 Subcutaneo ity of (XYLOCAINE) 11:28: us, PRN, [place] injection 5 11 Starting Medi efrain mL on [facility] Branch 02/15/22 at 0628, Until Discontinu ed, Routine, Local anesthesia NaCl 0.9% 0 Yes 10mL 10 mL, Univer s (NS) 02-15 Slow IV ity of injection 11:28: Push, [place]N, [place] 10 mL 11 Starting Medical on [place] Branch 02/15/22 at 0628, Until Discontinu ed, Routine, line maintenanc e lidocaine Yes 5mL 5 mL, Univers 1% (PF) 02-15 Subcutaneo ity of (XYLOCAINE) 11:28: us, PRN, [place] injection 5 11 Starting Medi efrain mL on [place] Branch 02/15/22 at 0628, Until Discontinu ed, Routine, Local anesthesia NaCl 0.9% 2021- No 1000mL at 999 Uni vers (NS) bolus 02-15 mL/hr, ity of infusion 07:30: 06:55 1,000 mL, [place] 1,000 mL 00 :00 IV Medical Infusion, Branch ONCE, 1 dose, On Libra 02/15/22 at 0230, SAHARA FENTanyl PF No 50ug 50 mcg, Un ela (SUBLIMAZE 02-15 Slow IV ity o f (PF)) 06:45: 06:01 Push, [place] injection 00 :00 ONCE, 1 Medical 50 mcg dose, On Branch Libra 02/15/22 at 0145, Routine cefTRIAXone 2021- No 1000mg 1,000 mg, Univers (ROCEPHIN) 02-15 IV ity of 1,000 mg in 05:30: 06[facility] [place] NaCl 0.9% 00 :00 ONCE, 1 Medical (NS) 50 mL dose, On Bran h MINI-BAG [facility] 02/15/22 at 0030, Administer over 30 Minutes, 50 mL
R keegan for Anti-Infec tive: Empiric Therapy for Suspected Infection< br>Empiric Therapy Site: Urine
D uration of therapy: 72 hours NaCl 0.9% 2021- No 1000mL at 999 Uni vers (NS) bolus 02-15- mL/hr, ity of infusion 05:30: 07:58 1,000 mL, [place] 1,000 mL 00 :00 IV Medical Infusion, Branch ONCE, 1 dose, On Libra 02/15/22 at 0030, SAHARA NaCl 0.9% 2021- No 1000mL at 999 Uni vers (NS) bolus 02-15- mL/hr, ity of infusion 05:15: 07:58 1,000 mL, [place] 1,000 mL 00 :00 IV Medical Infusion, Branch ONCE, 1 dose, On Libra 02/15/22 at 0015, SAHARA D5W 0.45% 2021- No IV Univers NaCl 02-15 Infusion, ity of (1/2NS) 1 L 04:53: 22:22 at 200 Tim as + KCL 20 49 :19 mL/hr, PRN Medic al mEq - SEE Branch INSTRUCTIO NS, Starting on Sat02/14/22 at 2353, Until Sat02/16/22 at 1722, SAHARA, Blood glucose control proMETHazin 2021- No 25mg 25 mg, IV Univers e 02-15 Piggyback, ity of (PHENERGAN) 04:15: 04:22 ONCE, 1 [place] 25 mg in 00 :00 dose, On Medical NaCl 0.9% Sat02/14/22 Bran ch (NS) 50 mL at 2315, IV SAHARA piggyback proMETHazin 2021- No 12.5mg 12.5 mg, Univers e 02-10 07-30 IV ity of (PHENERGAN) 21:30: 22:14 Piggyback, [place] 12.5 mg in 00 :00 ONCE, 1 Medica l NaCl 0.9% dose, On Branch (NS) 50 mL Sat IV 02/10/22 at piggyback 1630, 50 mL lactated Yes 1000mL at 50 Univer s ringers IV 7-30 mL/hr, ity of infusion 19:15: 1,000 mL, [place] 1,000 mL 00 IV Medical Infusion, Branch CONTINUOUS , Starting on 02/10/22 at 1415, Until Discontinu ed, Routine insulin Yes 7U 7 Units, Univer s lispro 7-30 Subcutaneo ity of (human) 17:00: us, TID [place] (HumaLOG 00 MEALS, Medical U-100) First dose Branch injection 7 (after Units last modificati on) on 02/10/22 at 1200, Until Discontinu ed, Routine insulin Yes 40U 40 Units, Unive rs glargine 7-30 Subcutaneo ity o f (LANTUS 14:00: us, DAILY, [place] U-100) 00 First dose Medical injection (after Branch 40 Units last modificati on) on 02/10/22 at 0900, Until Discontinu ed, Routine insulin NPH 2021- Yes [id number] 50U inject 50 Univers and regular 7-30 08-30 Units ity of human 70-30 00:00: 04:59 under the [place] 100 unit/mL 00 :00 skin every Me dical (70-30) morning Branch injection and evening for 30 days. proMETHazin 2021- Yes [id number] 12.5mg Insert 1 Univers e 12.5 mg 02-10 08-30 Suppositor ity of suppository 00:00: 04:59 y into [place] 00 :00 rectum Medical every 6 Branch (six) hours as needed for Nausea and Vomiting (N/V) for up to 30 days. proMETHazin 2021- Yes [id number] 12.5mg Take 0.5 Univers e 25 mg 02-10 08-30 tablets by ity o f tablet 00:00: 04:59 mouth [place] 00 :00 every 4 Medical (four) Branch hours as needed for Nausea and Vomiting (N/V) for up to 30 days. insulin NPH 2021- Yes [id number] 50U inject 50 Univers and regular 7-30 08-30 Units ity of human 70-30 00:00: 04:59 under the [place] 100 unit/mL 00 :00 skin every Me dical (70-30) morning Branch injection and evening for 30 days. proMETHazin 2021- Yes [id number] 12.5mg Insert 1 Univers e 12.5 mg 7-30 08-30 Suppositor ity of suppository 00:00: 04:59 y into [place] 00 :00 rectum Medical every 6 Branch (six) hours as needed for Nausea and Vomiting (N/V) for up to 30 days. proMETHazin 2021- Yes [id number] 12.5mg Take 0.5 Univers e 25 mg 7-30 08-30 tablets by ity o f tablet 00:00: 04:59 mouth [place] 00 :00 every 4 Medical (four) Branch hours as needed for Nausea and Vomiting (N/V) for up to 30 days. insulin NPH 2021- Yes [id number] 50U inject 50 Univers and regular 7-30 08-30 Units ity of human 70-30 00:00: 04:59 under the [place] 100 unit/mL 00 :00 skin every Me dical (70-30) morning Branch injection and evening for 30 days. proMETHazin 2021- Yes [id number] 12.5mg Insert 1 Univers e 12.5 mg 7-30 08-30 Suppositor ity of suppository 00:00: 04:59 y into [place] 00 :00 rectum Medical every 6 Branch (six) hours as needed for Nausea and Vomiting (N/V) for up to 30 days. proMETHazin 2021- Yes [id number] 12.5mg Take 0.5 Univers e 25 mg 7-30 08-30 tablets by ity o f tablet 00:00: 04:59 mouth [place] 00 :00 every 4 Medical (four) Branch hours as needed for Nausea and Vomiting (N/V) for up to 30 days. insulin NPH 2021- Yes [id number] 50U inject 50 Univers and regular 7-30 08-30 Units ity of human 70-30 00:00: 04:59 under the [place] 100 unit/mL 00 :00 skin every Me dical (70-30) morning Branch injection and evening for 30 days. proMETHazin 2021- Yes [id number] 12.5mg Insert 1 Univers e 12.5 mg 7-30 08-30 Suppositor ity of suppository 00:00: 04:59 y into [place] 00 :00 rectum Medical every 6 Branch (six) hours as needed for Nausea and Vomiting (N/V) for up to 30 days. proMETHazin 2021- Yes [id number] 12.5mg Take 0.5 Univers e 25 mg 7-30 08-30 tablets by ity o f tablet 00:00: 04:59 mouth [place] 00 :00 every 4 Medical (four) Branch hours as needed for Nausea and Vomiting (N/V) for up to 30 days. insulin NPH 2021- Yes [id number] 50U inject 50 Univers and regular 7-30 08-30 Units ity of human 70-30 00:00: 04:59 under the [place] 100 unit/mL 00 :00 skin every Me dical (70-30) morning Branch injection and evening for 30 days. proMETHazin 2021- Yes [id number] 12.5mg Insert 1 Univers e 12.5 mg 7-30 08-30 Suppositor ity of suppository 00:00: 04:59 y into [place] 00 :00 rectum Medical every 6 Branch (six) hours as needed for Nausea and Vomiting (N/V) for up to 30 days. proMETHazin 2021- Yes [id number] 12.5mg Take 0.5 Univers e 25 mg 7-30 08-30 tablets by ity o f tablet 00:00: 04:59 mouth [place] 00 :00 every 4 Medical (four) Branch hours as needed for Nausea and Vomiting (N/V) for up to 30 days. proMETHazin 2021- Yes [id number] 12.5mg Insert 1 Univers e 12.5 mg 7-30 08-30 Suppositor ity of suppository 00:00: 04:59 y into [place] 00 :00 rectum Medical every 6 Branch (six) hours as needed for Nausea and Vomiting (N/V) for up to 30 days. proMETHazin 2021- Yes [id number] 12.5mg Take 0.5 Univers e 25 mg 7-30 08-30 tablets by ity o f tablet 00:00: 04:59 mouth [place] 00 :00 every 4 Medical (four) Branch hours as needed for Nausea and Vomiting (N/V) for up to 30 days. proMETHazin 2021- Yes [id number] 12.5mg Insert 1 Univers e 12.5 mg 7-30 08-30 Suppositor ity of suppository 00:00: 04:59 y into [place] 00 :00 rectum Medical every 6 Branch (six) hours as needed for Nausea and Vomiting (N/V) for up to 30 days. proMETHazin 2021- Yes [id number] 12.5mg Take 0.5 Univers e 25 mg 7-30 08-30 tablets by ity o f tablet 00:00: 04:59 mouth [place] 00 :00 every 4 Medical (four) Branch hours as needed for Nausea and Vomiting (N/V) for up to 30 days. proMETHazin 2021- Yes [id number] 12.5mg Insert 1 Univers e 12.5 mg 7-30 08-30 Suppositor ity of suppository 00:00: 04:59 y into [place] 00 :00 rectum Medical every 6 Branch (six) hours as needed for Nausea and Vomiting (N/V) for up to 30 days. proMETHazin 2021- Yes [id number] 12.5mg Take 0.5 Univers e 25 mg 7-30 08-30 tablets by ity o f tablet 00:00: 04:59 mouth [place] 00 :00 every 4 Medical (four) Branch hours as needed for Nausea and Vomiting (N/V) for up to 30 days. proMETHazin 2021- Yes [id number] 12.5mg Insert 1 Univers e 12.5 mg 7-30 08-30 Suppositor ity of suppository 00:00: 04:59 y into [place] 00 :00 rectum Medical every 6 Branch (six) hours as needed for Nausea and Vomiting (N/V) for up to 30 days. proMETHazin 2021- Yes [id number] 12.5mg Take 0.5 Univers e 25 mg 7-30 08-30 tablets by ity o f tablet 00:00: 04:59 mouth [place] 00 :00 every 4 Medical (four) Branch hours as needed for Nausea and Vomiting (N/V) for up to 30 days. insulin NPH 2021- No [id number] 50U inject 50 Univers and regular 7-30 08-12 Units ity of human 70-30 00:00: 00:00 under the [place] 100 unit/mL 00 :00 skin every Me dical (70-30) morning Branch injection and evening for 30 days. insulin 2021- No 5U 5 Units, Unive rs lispro 02-09 Subcutaneo ity of (human) 17:00: 14:45 us, TID [place] (HumaLOG 00 :04 MEALS, Medical U-100) First dose Branch injection 5 (after Units last modificati on) on Sat02/09/22 at 1200, Until Discontinu ed, Routine HYDROmorphO 2021- Yes 1mg 1 mg, Univ ers ne 02-09 Intravenou ity of (DILAUDID) 16:54: 16:53 s, Q6HPRN, [place] injection 1 28 :28 Starting Medi efrain mg on Sat02/09/22 at 1154, Until 02/11/22 at 1153, Routine, Breakthrou gh pain only
Us e approved by (Faculty): ADC PROVIDER insulin 2021- No 35U 35 Units, [facility] ers glargine 02-09 Subcutaneo ity of (LANTUS 14:00: 14:02 us, DAILY, [place] U-100) 00 :21 First dose Medical injection (after Branch 35 Units last modificati on) on Sat02/09/22 at 0900, Until Discontinu ed, Routine NaCl 0.9% Yes 10mL 10 mL, Univer s (NS) 02-09 Slow IV ity of injection 01:04: Push, PRN, [place] 10 mL 34 Starting Medical on Sat Branch 02/08/22 at 2004, Until Discontinu ed, Routine, line maintenanc e lidocaine Yes 5mL 5 mL, Univers 1% (PF) 02-09 Subcutaneo ity of (XYLOCAINE) 01:04: us, PRN, [place] injection 5 34 Starting Medi efrain mL on Sat Branch 02/08/22 at 2003, Until Discontinu ed, Routine, Local anesthesia nystatin Yes Topical, [facility] (NYSTOP) 02-09 BID, First ity o f powder 01:00: dose on [place] 00 [facility] Medical 02/08/22 at Branch 2000, Until Discontinu ed, Routine Sliding Yes Subcutaneo Univ ers Scale 02-08 us, TID ity of Insulin - 22:00: MEALS+HS, Tim as Lispro 00 First dose Medical (HumaLOG) + (after Branch Fsbg last Testing modificati on) on Libra 02/08/22 at 1700, Until Discontinu ed, Routine insulin 2021- No 3U 3 Units, Unive rs lispro 02-08 07-29 Subcutaneo ity of (human) 22:00: 14:02 us, TID [place] (HumaLOG 00 :21 MEALS, Medical U-100) First dose Branch injection 3 on Libra Units 02/08/22 at 1700, Until Discontinu ed, Routine mupirocin Yes Univers (BACTROBAN 02-08 ity of OINT) 2 % 21:45: [place] skin 00 Medical ointment Branch collagenase Yes Topical Uni vers (SANTYL) 02-08 (Apply To ity of ointment 21:45: Affected [place] 00 Areas), Medical DAILY, Branch First dose (after last modificati on) on Libra 02/08/22 at 1645, Until Discontinu ed, Routine HYDROcodone Yes 1{tbl} 1 tablet, Univers -acetaminop 02-08 Oral, ity of hen (NORCO 19:54: Q6HPRN, [place] 5) 5-325 mg 07 Starting Medi efrain tablet 1 on Libra Branch tablet 02/08/22 at 1454, Until Discontinu ed, Routine, Pain (scale 4-6) HYDROcodone Yes 1{tbl} 1 tablet, Univers -acetaminop 02-08 Oral, ity of hen (NORCO) 19:47: Q6HPRN, [place] 10-325 mg 33 Starting Medica l tablet 1 on Libra Branch tablet 02/08/22 at 1447, Until Discontinu ed, Routine, Pain (scale 7-10) lactated 2021- No 1000mL at 100 Univ ers ringers IV 02-08 07-30 mL/hr, ity of infusion 18:30: 19:10 1,000 mL, [place] 1,000 mL 00 :52 IV Medical Infusion, Branch CONTINUOUS , Starting on Libra 02/08/22 at 1330, Until 02/10/22 at 1410, Routine fluconazole No 200mg 200 mg, U nivers (DIFLUCAN) 02-08 Oral, ity of tablet 200 14:00: 19:47 DAILY, [place] mg 00 :17 First dose Medical on Libra Branch 02/08/22 at 0900, Until Discontinu ed, SAHARA
Re ason for Anti-Infec tive: Empiric Therapy for Suspected Infection< br>Empiric Therapy Site: Urine<br&g t;Duration of therapy: 72 hours NaCl 0.45% 2021- No 1000mL at 150 Un ela (1/2NS) IV 02-08 mL/hr, ity of infusion 02:15: 13:47 1,000 mL, [place] 1,000 mL 00 :19 IV Medical Infusion, Branch CONTINUOUS , Starting on 02/07/22 at 2115, Until Libra 02/08/22 at 0847, Routine proMETHazin No 12.5mg 12.5 mg, Univers e 02-08 IV ity of (PHENERGAN) 02:15: 01:35 [place], [place] 12.5 mg in 00 :00 ONCE, 1 Medica l NaCl 0.9% dose, On Branch (NS) 50 mL Wed IV 02/07/22 at piggyback 211, Routine insulin 2021- No 10U 10 Units, Univ ers lispro 02-08 Subcutaneo ity of (human) 01:30: 00:44 us, ONCE, [place] (HumaLOG 00 :00 1 dose, On Medic al U-100) Wed Branch injection 02/07/22 at 10 Units 2029, SAHARA ertapenem 2021- No 1000mg 1,000 mg, Univers (INVANZ) 02-08 Intramuscu ity of injection 01:30: 18:10 lar, Q24H [place] 1,000 mg 00 :43 ABX, First Medic al dose on Branch 02/07/22 at 2030, Until Discontinu ed, SAHARA<br&gt ;Reason for Anti-Infec tive: Empiric Therapy for Suspected Infection< br>Empiric Therapy Site: Urine
D uration of therapy: 72 hours
R estricted use approved by: History of ESBL infection in past 3 months HYDROmorphO 2021- No 1mg 1 mg, [facility] ers ne 02-08 Intravenou ity of (DILAUDID) 01:01: 19:45 s, Q4HPRN, [place] injection 1 21 :38 Starting Medi efrain mg on Sat Branch 02/07/22 at 2000, Until Libra 02/08/22 at 1445, Routine, Pain (scale 7-10)
U se approved by (Faculty): ADC PROVIDER Sliding 2021- No Subcutaneo Uni vers Scale 02-08 us, Q3H, ity of Insulin - 01:00: 18:35 First dose [place] Lispro 00 :13 (after Medical (HumaLOG) + last Branch Fsbg modificati Testing on) on Sat02/07/22 at 1999, Until Discontinu ed, Routine pantoprazol Yes 40mg 40 mg, [facility] ers e 02-08 Oral, ity of (PROTONIX) 00:30: DAILY, [place] EC tablet 00 First dose Medi efrain 40 mg on Sat Branch 02/07/22 at 1930, Until Discontinu ed, Routine FENTanyl PF 2021- No 50ug 50 mcg, Un ela (SUBLIMAZE 02-07 Intramuscu it y of (PF)) 22:51: 01:01 lar, [place] injection 14 :59 Q4HPRN, Medical 50 mcg Starting Branch on Sat02/07/22 at 1751, Until Sat02/07/22 at 2000, Routine, Pain (scale 7-10) Sliding 2021- No Subcutaneo Uni vers Scale 02-07 us, Q3H, ity of Insulin - 22:00: 00:29 First dose [place] Lispro 00 :25 on Sat Medical (HumaLOG) + 02/07/22 at Br anch Fsbg 1700, Testing Until Discontinu ed, Routine acetaminoph Yes 1000mg 1,000 mg, Univers en 02-07 Oral, Q8H, ity of (TYLENOL) 21:15: First dose [place] tablet 00 on Sat Medical 1,000 mg 02/07/22 at [facility] 1615, Until Discontinu ed, Routine FENTanyl PF No 50ug 50 mcg, Un ela (SUBLIMAZE 02-07 Slow IV ity o f (PF)) 21:07: 22:51 Push, [place] injection 07 :27 Q4HPRN, Medical 50 mcg Starting Branch on Sat02/07/22 at 1607, Until Sat02/07/22 at 1751, Routine, Pain (scale 7-10) insulin 2021- No 30U 30 Units, Univ ers glargine 02-07 Subcutaneo ity of (LANTUS 19:30: 18:47 us, DAILY, [place] U-100) 00 :44 First dose Medical injection (after Branch 30 Units last modificati on) on Sat02/07/22 at 1430, Until Discontinu ed, Routine glucagon Yes 1mg 1 mg, Univers (GLUCAGEN 02-07 Intramuscu ity of DIAGNOSTIC 19:19: lar, PRN, [place] KIT) 57 Starting Medical injection 1 on Sat Branch mg 02/07/22 at 1419, Until Discontinu ed, SAHARA, Blood Glucose < or = 70 mg/dL and patient is unable to swallow or has mental changes. dextrose 50 Yes 25mL 25 mL, Univ ers % in water 02-07 Slow IV ity of (D50W) 19:19: Push, PRN, [place] injection 57 Starting Medica l 25 mL on Sat Branch 02/07/22 at 1419, Until Discontinu ed, SAHARA, Blood Glucose < or = 70 mg/dL and patient is unable to swallow or has mental status changes. FENTanyl PF No 25ug 25 mcg, Un ela (SUBLIMAZE 02-07 Slow IV ity o f (PF)) 18:57: 21:09 Push, [place] injection 03 :29 Q4HPRN, Medical 25 mcg Starting Branch on Sat02/07/22 at 1357, Until Sat02/07/22 at 1609, Routine, Pain (scale 7-10) D5W IV 2021- No 1000mL at 500 Univer s infusion 02-07 mL/hr, IV ity o f 1,000 mL 18:30: 20:00 Infusion, [place] 00 :00 ONCE, 1 Medical dose, On Branch Sat02/07/22 at 1330, Routine NaCl 0.9% 2021- No 1000mL at 999 Uni vers (NS) bolus 02-07 mL/hr, ity of infusion 18:15: 20:19 1,000 mL, [place] 1,000 mL 00 :00 IV Medical Infusion, Branch ONCE, 1 dose, On Sat02/07/22 at 1315, STAT potassium 2021- No 20meq 20 mEq, IV Univers chloride 20 02-07 Piggyback, i ty of mEq/100 mL 17:45: 21:20 Q1H, 4 [place] (KCL) 20 00 :00 doses, Medical mEq/100 mL First dose [facility] RTU IVPB 20 on Sat mEq 02/07/22 at 1245, Last dose on Sat02/07/22 at 1500, 100 mL KCL 2021- No IV Univers (POTASSIUM 02-07 Infusion, ity of CHLORIDE) 17:30: 00:27 CONTINUOUS [place] 40 mEq in 00 :47 , Starting Medi efrain NaCl 0.45% on Sat Branch (1/2NS) IV 02/07/22 at Solution 1230, Until Sat02/07/22 at 1927, 1,000 mL, at 200 mL/hr KCL 2021- No IV Univers (POTASSIUM 02-07 Infusion, ity of CHLORIDE) 15:45: 17:15 CONTINUOUS [place] 40 mEq in 00 :42 , Starting Medi efrain NaCl 0.45% on Sat Branch (1/2NS) IV 02/07/22 at Solution 1045, Until Sat02/07/22 at 1215, 1,000 mL, at 150 mL/hr ondansetron Yes 4mg 4 mg, Slow Univers (ZOFRAN 02-07 IV Push, ity of (PF)) 15:38: Q6HPRN, [place] injection 4 50 Nausea and Me dical mg Vomiting Branch (N/V), Starting on Sat02/07/22 at 1038
Do ses of ondansetro n 16 mg and above need to be administer ed via IV piggyback. For Dose >=24mg ECG monitoring is advisable.
enoxaparin Yes 40mg 40 mg, Unive rs (LOVENOX) 02-07 Subcutaneo ity of injection 14:00: us, DAILY, [place] 40 mg 00 First dose Medical on Sat Branch 02/07/22 at 0900, Until Discontinu ed, Routine fluconazole No 200mg at 100 Un ela (DIFLUCAN) 02-07 07-28 mL/hr, IV ity of Piggyback 13:45: 00:25 Piggyback, [place] 200 mg 00 :36 Q24H ABX, Medical First dose Branch on Sat02/07/22 at 0845, Until Discontinu ed, SAHARA
Do Not Refrigerat e.
NORepinephr .05ug/k 0.05-1.5 Univers ine 4 mg in 02-07 g/min mcg/kg/min ity of 0.9% NaCl 12:21: 22:51 ?127 kg [place] 250 mL 22 :36 (23.8125-7 Medical infusion 14.375 Branch RTU mL/hr, rounded to 23.81-714. 38 mL/hr), IV Infusion, TITRATE, MAP Goal > or = 65 mmHg, Starting on Sat02/07/22 at 0721
In itiate titration at 0.05 mcg/kg/min . &nb sp;Increas e by 0.01 mcg/kg/min every 30 seconds to 5 minutes as needed to reach and maintain goal blood pressure.& nbsp;&nbsp ;Maximum dose = 1.5 mcg/kg/min . &nb sp;If goal not maintained at maximum allowed dose, contact prescriber .
potassium 10meq 10 mEq, IV Univers chloride in 02-07 Piggyback, i ty of water 10 12:00: 14:44 Q1H, 3 [place] mEq/100 mL 00 :00 doses, Medical RTU 10 mEq First dose Bra nch on Sat02/07/22 at 0700, Last dose on Sat02/07/22 at 0900, Administer over 60 Minutes, 100 mL aztreonam 2021- No 1000mg 1,000 mg, Univers (AZACTAM) 02-07 Slow IV ity of injection 12:00: 12:41 Push, Q8H [place] 1,000 mg 00 :55 ABX, First Medic al dose on Branch Sat02/07/22 at 0700, Until Discontinu ed
Reas on for Anti-Infec tive: Empiric Therapy for Suspected Infection< br>Empiric Therapy Site: Urine<b r>Duration of therapy: 7 days NaCl 0.9% 2021- No 1000mL at 999 Uni vers (NS) IV 02-07 mL/hr, IV ity of infusion 11:45: 11:49 Infusion, [place] 1,000 mL 00 :30 ONCE, 1 Medical dose, On Branch Sat02/07/22 at 0645, Routine NaCl 0.45% 2021- No 1000mL at 250 Un ela (1/2NS) IV 02-07 mL/hr, ity of infusion 11:30: 14:41 1,000 mL, [place] 1,000 mL 00 :42 IV Medical Infusion, Branch CONTINUOUS , Starting on Sat02/07/22 at 0630, Until Sat02/07/22 at 0941, SAHARA insulin 2021- No 0U/kg/h 0-0.3 Unive rs regular in 02-07 Units/kg/h it y of 0.9 % NaCl 11:19: 19:18 r ?127 kg [place] (MYXREDLIN) 08 :18 (0-38.1 Medic al 100 mL/hr), IV Branch unit/100 mL Infusion, (1 unit/mL) TITRATE, RTU IV Parameters infusion in Admin. Instr., Follow DKA Insulin Rate Adjustment Protocol, Starting on Sat02/07/22 at 0619
- Follow 'DKA Insulin Rate Adjustment Protocol' - Start insulin infusion at 0.1 units/kg /hr. When adjusting rate, do not increase rate above 0.3 units/kg/h our. - Hold insulin and NHO STAT if potassium is less than 3.3 mEq/L.&nbs p;- NHO STAT if blood glucose less than 100 mg/dL or greater than 600 mg/dL or if blood glucose not decreased by 50 mg/dL in the first hour of insulin infusion.& nbsp;- Once blood glucose is less than or equal to 200 mg/dL in patient with DKA or blood glucose is less than or equal to 300 mg/dL in patient with HHS, change to fluids with dextrose.& nbsp;& nbsp;&nbsp ;- If during insulin infusion and on dextrose fluids blood glucose is less than 150 mg/dL in DKA or less than 200 mg/dL in HHS, NHO for increase in dextrose provided in continuous fluids.&nb sp;- Once AGAP less than 12, blood glucose less than 200 mg/dL, TCO2 greater than 15 x 2 and patient ready to eat, NHO for SubQ glargine order two hours before stopping insulin infusion.< br> NaCl 0.9% 2021- No 1000mL at 999 Uni vers (NS) IV 02-07 mL/hr, IV ity of infusion 08:30: 11:00 Infusion, [place] 1,000 mL 00 :00 ONCE, 1 Medical dose, On Branch Sat02/07/22 at 0330, Routine NaCl 0.45% 2021- No 1000mL at 250 Un ela (1/2NS) IV 02-07 mL/hr, ity of infusion 06:00: 11:20 1,000 mL, [place] 1,000 mL 00 :23 IV Medical Infusion, Branch CONTINUOUS , Starting on Sat02/07/22 at 0100, Until Sat02/07/22 at 0620, SAHARA FENTanyl PF 2021- No 50ug 50 mcg, Un ela (SUBLIMAZE 02-07 Slow IV ity o f (PF)) 04:15: 03:07 Push, [place] injection 00 :00 ONCE, 1 Medical 50 mcg dose, On Branch Tu02/06/22 at 2315, Routine cefTRIAXone 2021- No 1000mg 1,000 mg, Univers (ROCEPHIN) 02-07 Intravenou it y of 1,000 mg in 04:00: 06:06 s, ONCE, 1 [place] NaCl 0.9% 00 :00 dose, On Medica l (NS) 50 mL Tue Branch MINI-BAG 02/06/22 at 2300, Administer over 30 Minutes, 50 mL
R keegan for Anti-Infec tive: Documented Infection< br>Documen lester Infection Site: Urine<br&g t;Duration of Therapy: Other (see Comments) NaCl 0.9% 2021- No 1000mL at 999 Uni vers (NS) bolus 02-07 mL/hr, ity of infusion 03:00: 04:14 1,000 mL, [place] 1,000 mL 00 :00 IV Medical Infusion, Branch ONCE, 1 dose, On [facility] 02/06/22 at 2200, STAT insulin 2021- No 10U 10 Units, Univ ers regular 02-07 Subcutaneo ity o f human 01:30: 00:37 us, ONCE, [place] (HUMULIN R) 00 :00 1 dose, On Me dical injection Tue Branch 10 Units 02/06/22 at 2030, Routine FENTanyl PF 2021- No 50ug 50 mcg, Un ela (SUBLIMAZE 02-07 Slow IV ity o f (PF)) 01:30: 00:28 Push, [place] injection 00 :00 ONCE, 1 Medical 50 mcg dose, On Branch e 02/06/22 at 2030, Routine NaCl 0.9% 2021- No 1000mL at 999 Uni vers (NS) bolus 02-07 mL/hr, ity of infusion 00:30: 02:09 1,000 mL, [place] 1,000 mL 00 :00 IV Medical Infusion, Branch ONCE, 1 dose, On e 02/06/22 at 1930, STAT iopamidol 2021- No [id number] 65mL 65 mL, Univers (ISOVUE 01-27 [id number] Intravenou ity of 370-500 mL) 02:29: 02:45 s, ONCE, 1 [place] injection 00 :00 dose, On Medica l 65 mL Fri Branch 01/26/22 at 2145, Routine FENTanyl PF 2021- No 150ug 150 mcg, Univers (SUBLIMAZE 01-27 Slow IV ity o f (PF)) 01:32: 01:44 Push, [place] injection 00 :00 ONCE, 1 Medical 150 mcg dose, On Branch 01/26/22 at 2044, Routine FENTanyl PF 2021- No 50ug 50 mcg, Un ela (SUBLIMAZE 01-27 Slow IV ity o f (PF)) 00:30: 23:32 Push, [place] injection 00 :00 ONCE, 1 Medical 50 mcg dose, On Branch 01/26/22 at 1930, Routine insulin 2021- No 10U 10 Units, Univ ers regular 01-27 Subcutaneo ity o f human 00:30: 23:28 , ONCE, [place] (HUMULIN R) 00 :00 1 dose, On Me dical injection Fri Branch 10 Units 01/26/22 at 193, Routine clindamycin 2021- Yes [id number] 600mg Take 2 Univers 300 mg 01-26 [id number] capsules ity of capsule 00:00: 04:59 by mouth 4 Tim as 00 :00 (four) Medical times [place] daily for 7 days. clindamycin 2021- No [id number] 600mg Take 2 [facility] 300 mg 01-26 [id number] capsules ity of capsule 00:00: 04:59 by mouth 4 Tim as 00 :00 (four) Medical times [place] daily for 7 days. insulin NPH 2021- No 8U 8 Units, U nivers and regular 01-17-06 Subcutaneo i ty of human 70-30 12:30: 11:30 us, ONCE, [place] (70-30 00 :00 1 dose, On Medical U-100 01/17/22 Branch INSULIN) at 0730, 100 unit/mL [facility] (70-30) injection 8 Units insulin Yes [id number] 20U inject 20 U nivers glargine 7-02 Units ity of 100 unit/mL 00:00: under the [place] injection 00 skin Medical daily. Branch insulin Yes [id number] 20U inject 20 U nivers glargine 7-02 Units ity of 100 unit/mL 00:00: under the [place] injection 00 skin Medical daily. Branch insulin Yes [id number] 20U inject 20 U nivers glargine 7-02 Units ity of 100 unit/mL 00:00: under the [place] injection 00 skin Medical daily. Branch insulin Yes [id number] 20U inject 20 U nivers glargine 7-02 Units ity of 100 unit/mL 00:00: under the [place] injection 00 skin Medical daily. Branch insulin 2021- No [id number] 20U inject 20 [facility] glargine 01-13 07-30 Units ity of 100 unit/mL 00:00: 00:00 under the [place] injection 00 :00 skin Medical daily. Branch insulin 2021- No [id number] 20U inject 20 [facility] glargine 01-13 07-30 Units ity of 100 unit/mL 00:00: 00:00 under the [place] injection 00 :00 skin Medical daily. Branch insulin Yes 20U 20 Units, Unive rs glargine 01-12 Subcutaneo ity o f (LANTUS 14:00: [place], DAILY, [place] U-100) 00 First dose Medical injection (after Branch 20 Units last modificati on) on Sat01/12/22 at 0900, Until Discontinu ed, Routine insulin 2021- No [id number] 26U inject 26 [facility] lispro, 01-12 Units ity of human, 100 00:00: 04:59 under the [place] unit/mL 00 :00 skin 3 Medical injection (three) Branch times daily before meals for 30 days. insulin 2021- No [id number] 26U inject 26 [facility] lispro, 01-12- Units ity of human, 100 00:00: 04:59 under the [place] unit/mL 00 :00 skin 3 Medical injection (three) Branch times daily before meals for 30 days. insulin 2021- No [id number] 26U inject 26 [facility] lispro, 01-12 Units ity of human, 100 00:00: 04:59 under the [place] unit/mL 00 :00 skin 3 Medical injection (three) Branch times daily before meals for 30 days. insulin 2021- No [id number] 26U inject 26 [facility] lispro, 01-12 08-01 Units ity of human, 100 00:00: 04:59 under the [place] unit/mL 00 :00 skin 3 Medical injection (three) Branch times daily before meals for 30 days. insulin 2021- No [id number] 26U inject 26 [facility] lispro, 01-12 07-30 Units ity of human, 100 00:00: 00:00 under the [place] unit/mL 00 :00 skin 3 Medical injection (three) Branch times daily before meals for 30 days. insulin 2021- No [id number] 26U inject 26 [facility] lispro, 01-12 07-30 Units ity of human, 100 00:00: 00:00 under the [place] unit/mL 00 :00 skin 3 Medical injection (three) Branch times daily before meals for 30 days. insulin Yes 26U 26 Units, Unive rs lispro -30 Subcutaneo ity of (human) 22:15: [place], [place]IDAC, [place] (HumaLOG 00 First dose Medic al U-100) (after Branch injection last 26 Units modificati on) on [place]ra 01/11/22 at 1715, Until Discontinu ed, Routine insulin 2021- No 22U 22 Units, Univ ers lispro -11 01-30 Subcutaneo ity of (human) 16:30: 21:36 us, TIDAC, [place] (HumaLOG 00 :36 First dose Medic al U-100) (after Branch injection last 22 Units modificati on) on [place] 01/11/22 at 1130, Until Discontinu ed, Routine insulin 2021- No 10U 10 Units, Univ ers glargine -11 01-30 Subcutaneo ity of (LANTUS 14:00: 17:40 us, DAILY, [place] U-100) 00 :01 First dose Medical injection on [place] Branch 10 Units 01/11/22 at 0900, Until Discontinu ed, Routine insulin Yes 52U 52 Units, Unive rs glargine 6-30 Subcutaneo ity o f (LANTUS 02:00: us, QHS, [place] U-100) 00 First dose Medical injection on Sat Branch 52 Units 01/10/22 at 2100, Until Discontinu ed, Routine enoxaparin Yes 40mg 40 mg, Unive rs (LOVENOX) 01-10 Subcutaneo ity of injection 22:00: [place], DAILY, [place] 40 mg 00 First dose Medical on Sat Branch 01/10/22 at 1700, Until Discontinu ed, Routine Sliding Yes Subcutaneo Univ ers Scale 01-10 us, TID ity of Insulin - 17:00: MEALS+HS, [place] Lispro 00 First dose Medical (HumaLOG) + (after Branch Fsbg last Testing modificati on) on Sat01/10/22 at 1200, Until Discontinu ed, Routine insulin No 18U 18 Units, Univ ers lispro 01-10 Subcutaneo ity of (human) 16:30: 14:46 us, TIDAC, [place] (HumaLOG 00 :32 First dose Medic al U-100) (after Branch injection last 18 Units modificati on) on Sat01/10/22 at 1130, Until Discontinu ed, Routine amLODIPine Yes 10mg 10 mg, Unive rs (NORVASC) 01-10 Oral, ity of tablet 10 14:00: DAILY, [place] mg 00 First dose Medical on Sat Branch 01/10/22 at 0900, Until Discontinu ed, Routine cefTRIAXone Yes 1000mg 1,000 mg, Univers (ROCEPHIN) 01-10 IV ity of 1,000 mg in 13:00: Piggyback, [place] NaCl 0.9% 00 Q24H ABX, Medic al (NS) 50 mL First dose [facility] MINI-BAG on Sat01/10/22 at 0800, Until Discontinu ed, Administer over 30 Minutes, 50 mL
Reas on for Anti-Infec tive: Documented Infection< br>Documen lester Infection Site: Urine
D uration of Therapy: 7 days Sliding No Subcutaneo Uni vers Scale 01-10 us, TID ity of Insulin - 13:00: 15:19 MEALS+HS, [place] Lispro 00 :51 First dose Medical (HumaLOG) + on Sat Branch Fsbg 01/10/22 at Testing 0800, Until Discontinu ed, Routine insulin 2021- No 15U 15 Units, Univ ers lispro 01-10 Subcutaneo ity of (human) 12:30: 15:19 us, TIDAC, [place] (HumaLOG 00 :51 First dose Medic al U-100) on Sat Branch injection 01/10/22 at 15 Units 0730, Until Discontinu ed, Routine HYDROmorpho 2021- No 1mg 1 mg, Slow Univers ne 01-10 07 IV Push, ity of (DILAUDID) 11:32: 11:31 Q6HPRN, [place] injection 1 00 :00 Starting Medi efrain mg on Sat Branch 01/10/22 at 0632, Until Sat01/12/22 at 0631, Routine, Pain (scale 7-10)
U se approved by (Faculty): [facility] PROVIDER NaCl 0.9% 2021- No 1000mL at 999 Uni vers (NS) bolus 01-10 mL/hr, ity of infusion 11:00: 11:04 1,000 mL, [place] 1,000 mL 00 :00 IV Medical Infusion, Branch ONCE, 1 dose, On Sat01/10/22 at 0600, STAT HYDROcodone Yes 1{tbl} 1 tablet, Univers -acetaminop 01-10 Oral, ity of hen (NORCO 10:54: Q6HPRN, [place] 5) 5-325 mg 27 Starting Medi efrain tablet 1 on Sat Branch tablet 01/10/22 at 0554, Until Discontinu ed, Routine, Pain (scale 4-6) dextrose Yes 250mL 250 mL, IV Un ela 10% (D10W) 01-10 Infusion, ity of bolus 10:53: PRN - SEE [place] infusion 43 INSTRUCTIO Medic al 250 mL NS, Branch Administer over 60 Minutes, hypoglycem ia, Starting on Sat01/10/22 at 0553
De xtrose 10% 250 mL bag contains:& nbsp;10 gm = 100 mL 20 gm = 200 mL 25 gm = 250 mL (whole bag) The maximum rate at which dextrose can be infused without producing glycosuria is 0.5 g/kg/hour. &nbs p;BUD: If wrapper is open bag is good for 30 days at room temperatur e. <b r> glucagon Yes 1mg 1 mg, Univers (GLUCAGEN 01-10 Intramuscu ity of DIAGNOSTIC 10:53: [place], PRN, [place] KIT) 40 Starting Medical injection 1 on Sat Branch mg 01/10/22 at 0553, Until Discontinu ed, SAHARA, Blood Glucose < or = 70 mg/dL and patient is unable to swallow or has mental changes. acetaminoph Yes 650mg 650 mg, Un ela en 01-10 Oral, ity of (TYLENOL) 10:52: Q6HPRN, [place] tablet 650 33 Starting Medic al mg on Sat Branch 01/10/22 at 0552, Until Discontinu ed, Routine, Pain (scale 1-3) NaCl 0.9% 2021- No 1000mL at 999 Uni vers (NS) bolus 01-10 mL/hr, ity of infusion 09:00: 08:10 1,000 mL, [place] 1,000 mL 00 :00 IV Medical Infusion, Branch ONCE, 1 dose, On Sat01/10/22 at 0400, STAT FENTanyl PF 2021- No 50ug 50 mcg, Un ela (SUBLIMAZE 01-10 Slow IV ity o f (PF)) 08:22: 08:27 Push, [place] injection 00 :00 ONCE, 1 Medical 50 mcg dose, On Branch 01/10/22 at 0330, Routine insulin 2021- No 10U 10 Units, Univ ers regular 01-10 Slow IV ity of human 07:00: 05:53 Push, [place] (HUMULIN R) 00 :00 ONCE, 1 Medic al injection dose, On Branch 10 Units 01/10/22 at 0200, STAT FENTanyl PF 2021- No 50ug 50 mcg, Un ela (SUBLIMAZE 01-10 Slow IV ity o f (PF)) 04:15: 04:04 Push, [place] injection 00 :00 ONCE, 1 Medical 50 mcg dose, On Branch Sat01/09/22 at 2315, STAT NaCl 0.9% No 1000mL at 999 Uni vers (NS) bolus 01-10 mL/hr, ity of infusion 04:00: 05:53 1,000 mL, [place] 1,000 mL 00 :00 IV Medical Infusion, Branch ONCE, 1 dose, On Sat01/09/22 at 2300, STAT insulin No 10U 10 Units, Univ ers regular 01-10 Slow IV ity of human 04:00: 03:48 Push, [place] (HUMULIN R) 00 :00 ONCE, 1 Medic al injection dose, On Branch 10 Units Sat01/09/22 at 2300, STAT amLODIPine 2021- No [id number] 10mg Take 1 Univers 10 mg 6-26 07-30 tablet by ity of tablet 00:00: 00:00 mouth [place] 00 :00 daily for Medical 30 days. [place] amLODIPine 2021- No [id number] 10mg Take 1 Univers 10 mg 6-26 07-30 tablet by ity of tablet 00:00: 00:00 mouth [place] 00 :00 daily for Medical 30 days. [place] amLODIPine No [id number] 10mg Take 1 Univers 10 mg 6-26 07-27 tablet by ity of tablet 00:00: 04:59 mouth [place] 00 :00 daily for Medical 30 days. [place] amLODIPine 2021- No [id number] 10mg Take 1 Univers 10 mg 6-26 07-27 tablet by ity of tablet 00:00: 04:59 mouth [place] 00 :00 daily for Medical 30 days. Branch amLODIPine 2021- No [id number] 10mg Take 1 Univers 10 mg 6-26 07-27 tablet by ity of tablet 00:00: 04:59 mouth [place] 00 :00 daily for Medical 30 days. Branch amLODIPine 2021-2021- No [id number] 10mg Take 1 Univers 10 mg 6-26 07-27 tablet by ity of tablet 00:00: 04:59 mouth [place] 00 :00 daily for Medical 30 days. Branch amLODIPine 2021- No [id number] 10mg Take 1 Univers 10 mg -06 02-27 tablet by ity of tablet 00:00: 04:59 mouth [place] 00 :00 daily for Medical 30 days. Branch amLODIPine 2021- No [id number] 10mg Take 1 Univers 10 mg 6-06 02-27 tablet by ity of tablet 00:00: 04:59 mouth [place] 00 :00 daily for Medical 30 days. Branch amLODIPine 2021- No [id number] 10mg Take 1 Univers 10 mg 6-06 02-27 tablet by ity of tablet 00:00: 04:59 mouth [place] 00 :00 daily for Medical 30 days. Branch HYDROmorpho No .5mg 0.5 mg, Un ela ne 01-06- Slow IV ity of (DILAUDID) 18:00: 17:11 Push, [place] injection 00 :00 ONCE, 1 Medical 0.5 mg dose, [facility] 01/06/22 at 1300, Routine
Use approved by (Faculty): [facility] PROVIDER cefTRIAXone Yes 1000mg 1,000 mg, Univers (ROCEPHIN) 01-06 IV ity of 1,000 mg in 15:00: Piggyback, [place] NaCl 0.9% 00 Q24H ABX, Medic al (NS) 50 mL First dose [facility] MINI-BAG on [facility] 01/06/22 at 1000, Until Discontinu ed, Administer over 30 Minutes, 50 mL
Reas on for Anti-Infec tive: Documented Infection< br>Documen lester Infection Site: Urine
D uration of Therapy: 7 days fluconazole Yes 200mg 200 mg, Un ela (DIFLUCAN) 01-06 Oral, ity of tablet 200 14:00: DAILY, [place] mg 00 First dose Medical on [facility] 01/06/22 at 0900, Until Discontinu ed, SAHARA
Re ason for Anti-Infec tive: Documented Infection< br>Documen lester Infection Site: Urine
D uration of Therapy: 7 days Sliding Yes Subcutaneo Univ ers Scale 6-25 us, TID ity of Insulin - 13:00: MEALS+HS, [place] Lispro 00 First dose Medical (HumaLOG) + on Sat Branch Fsbg 01/06/22 at Testing 0800, Until Discontinu ed, Routine hydromorpho No 4ug Take 4 mcg Univers ne HCl 01-06 by mouth ity of (HYDROMORPH 11:55: 00:00 every 12 [place] ONE ORAL) 19 :00 (twelve) Medica l hours. Branch insulin 2021- No 10U 10 Units, Univ ers lispro 01-06 Subcutaneo ity of (human) 07:00: 06:53 us, ONCE, [place] (HumaLOG 00 :00 1 dose, On Medic al U-100) Sat Branch injection 01/06/22 at 10 Units 0200, Routine glucagon Yes 1mg 1 mg, Univers (GLUCAGEN 01-06 Intramuscu ity of DIAGNOSTIC 05:50: lar, PRN, [place] KIT) 51 Starting Medical injection 1 on Sat Branch mg 01/06/22 at 0050, Until Discontinu ed, SAHARA, Blood Glucose < or = 70 mg/dL and patient is unable to swallow or has mental changes. dextrose Yes 250mL 250 mL, IV Un ela 10% (D10W) 01-06 Infusion, ity of bolus 05:50: PRN - SEE [place] infusion 51 INSTRUCTIO Medic al 250 mL NS, Branch Administer over 60 Minutes, BS < 70, Starting on 01/06/22 at 0050
De xtrose 10% 250 mL bag contains:& nbsp;10 gm = 100 mL 20 gm = 200 mL 25 gm = 250 mL (whole bag) The maximum rate at which dextrose can be infused without producing glycosuria is 0.5 g/kg/hour. &nbs p;BUD: If wrapper is open bag is good for 30 days at room temperatur e. <b r> insulin Yes 52U 52 Units, Unive rs glargine 01-06 Subcutaneo ity o f (LANTUS 02:00: us, [facility], [place] U-100) 00 First dose Medical injection on Fri Branch 52 Units 01/05/22 at 2100, Until Discontinu ed, Routine Sliding 2021- No Subcutaneo Uni vers Scale 01-06- us, TID ity of Insulin - 02:00: 05:50 MEALS+HS, [place] Lispro 00 :40 First dose Medical (HumaLOG) + on Sat Branch Fsbg 01/05/22 at Testing 2100, Until Discontinu ed, Routine ciprofloxac 2021- No [id number] 500mg Take 1 Univers in HCl 500 01-06- tablet by ity of mg tablet 00:00: 04:59 mouth [place] 00 :00 every 12 Medical (twelve) Branch hours for 10 days. ciprofloxac 2021- No [id number] 500mg Take 1 Univers in HCl 500 01-06- tablet by ity of mg tablet 00:00: 04:59 mouth [place] 00 :00 every 12 Medical (twelve) Branch hours for 10 days. ciprofloxac 2021- No [id number] 500mg Take 1 Univers in HCl 500 01-06- tablet by ity of mg tablet 00:00: 04:59 mouth [place] 00 :00 every 12 Medical (twelve) Branch hours for 10 days. HYDROmorpho 2021- No [id number] 4mg Take 1 Uni vers ne 4 mg 01-06- tablet by ity of tablet 00:00: 04:59 mouth [place] 00 :00 every 12 Medical (twelve) Branch hours for 7 days. Indication s: acute pain HYDROmorpho 2021- No [id number] 4mg Take 1 Uni vers ne 4 mg -05 02-03 tablet by ity of tablet 00:00: 04:59 mouth [place] 00 :00 every 12 Medical (twelve) Branch hours for 7 days. Indication s: acute pain HYDROmorpho 2021- No [id number] 4mg Take 1 Uni vers ne 4 mg 6-25 -03 tablet by ity of tablet 00:00: 04:59 mouth [place] 00 :00 every 12 Medical (twelve) Branch hours for 7 days. Indication s: acute pain HYDROmorpho 2021- No [id number] 4mg Take 1 Uni vers ne 4 mg 6-25 07-03 tablet by ity of tablet 00:00: 04:59 mouth [place] 00 :00 every 12 Medical (twelve) Branch hours for 7 days. Indication s: acute pain ciprofloxac 2021- No [id number] 500mg Take 1 Univers in HCl 500 01-06 tablet by ity of mg tablet 00:00: 00:00 mouth [place] 00 :00 every 12 Medical (twelve) Branch hours for 10 days. NaCl 0.9% 2021- No 1000mL at 150 Uni vers (NS) bolus 01-05 mL/hr, ity of infusion 23:15: 23:38 1,000 mL, [place] 1,000 mL 00 :00 IV Medical Piggyback, Branch ONCE, 1 dose, On Sat01/05/22 at 1815, STAT HYDROmorpho 2021- No 1mg 1 mg, Slow Univers ne 01-05 IV Push, ity of (DILAUDID) 22:15: 21:46 ONCE, 1 [place] injection 1 00 :00 dose, On Medi efrain mg Sat [place] 01/05/22 at 1715, Routine
Use approved by (Faculty): [facility] PROVIDER enoxaparin Yes 40mg 40 mg, Unive rs (LOVENOX) 01-05 Subcutaneo ity of injection 22:00: us, DAILY, [place] 40 mg 00 First dose Medical on Sat [place] 01/05/22 at 1700, Until Discontinu ed, Routine glucagon Yes 1mg 1 mg, Univers (GLUCAGEN 24 Intravenou ity of DIAGNOSTIC 21:57: s, PRN - [place] KIT) 53 SEE Medical injection 1 INSTRUCTIO Br anch mg NS, Starting on Sat01/05/22 at 1657, Until Discontinu ed, Routine, hypoglycem ia glucagon 0 Yes 1mg 1 mg, Univers (GLUCAGEN 24 Intramuscu ity of DIAGNOSTIC 21:57: lar, PRN, [place] KIT) 44 Starting Medical injection 1 on Sat Branch 01/05/22 at 1657, Until Discontinu ed, SAHARA, Blood Glucose < or = 70 mg/dL and patient is unable to swallow or has mental changes. HYDROmorpho Yes 4mg 4 mg, Unive rs ne 01-05 Oral, ity of (DILAUDID) 13:00: Q12H, [place] tablet 4 mg 00 First dose Me dical on Sat Branch 01/05/22 at 0800, Until Discontinu ed insulin Yes 15U 15 Units, Unive rs lispro 01-05 Subcutaneo ity of (human) 12:30: us, TIDAC, [place] (HumaLOG 00 First dose Medic al U-100) on Fri Branch injection 01/05/22 at 15 Units 0730, Until Discontinu ed, Routine amLODIPine Yes 10mg 10 mg, Unive rs (NORVASC) 01-05 Oral, ity of tablet 10 08:45: DAILY, [place] mg 00 First dose Medical on Sat Branch 01/05/22 at 0345, Until Discontinu ed, Routine ertapenem No 1000mg 1,000 mg, Univers (INVANZ) 01-05 0625 IV ity of 1,000 mg in 08:45: 13:51 Piggyback, [place] NaCl 0.9% 00 :26 Q24H ABX, Medic al (NS) 50 mL First dose [facility] MINI-BAG on Sat01/05/22 at 0345, Until Discontinu ed, Administer over 30 Minutes, 50 mL
Reas on for Anti-Infec tive: Empiric Therapy for Suspected Infection< br>Empiric Therapy Site: Urine
D uration of therapy: 7 days
Re stricted use approved by: History of ESBL infection in past 3 months hydralAZINE Yes 10mg 10 mg, Univ ers (APRESOLINE 01-05 Slow IV ity o f ) injection 08:33: Push, [place] 10 mg 28 Q6HPRN, Medical Starting Branch on Sat01/05/22 at 0333, Until Discontinu ed, Routine, DBP=>10 0; SBP=>160, For SBP > 160 acetaminoph Yes 650mg 650 mg, Un ela en 01-05 Oral, ity of (TYLENOL) 07:37: Q6HPRN, [place] tablet 650 37 Starting Medic al mg on Sat Branch 01/05/22 at 0237, Until Discontinu ed, Routine, Pain (scale 1-3) iopamidol 2021- No [id number] 100mL 100 mL, Univers (ISOVUE 01-05 Intravenou ity o f 370-500 mL) 06:15: 05:05 s, ONCE, 1 [place] injection 00 :00 dose, On Medica l 100 mL Fri Branch 01/05/22 at 0115, Routine insulin 2021- No 10U 10 Units, Univ ers regular 01-05 IV Push, ity of human 06:00: 05:20 ONCE, 1 [place] (HUMULIN R) 00 :00 dose, On Medi efrain injection Fri Branch 10 Units 01/05/22 at 0100, [place] FENTanyl PF 2021- No 50ug 50 mcg, Un ela (SUBLIMAZE 01-05 Slow IV ity o f (PF)) 05:45: 04:47 Push, [place] injection 00 :00 ONCE, 1 Medical 50 mcg dose, On Branch 01/05/22 at 0045, STAT FENTanyl PF 2021- No 50ug 50 mcg, Un ela (SUBLIMAZE 01-05 Slow IV ity o f (PF)) 04:15: 04:00 Push, [place] injection 00 :00 ONCE, 1 Medical 50 mcg dose, On Branch [place] 01/04/22 at 2315, STAT NaCl 0.9% 2021- No 1000mL at 999 Uni vers (NS) bolus 01-05 mL/hr, ity of infusion 04:15: 06:41 1,000 mL, [place] 1,000 mL 00 :00 IV Medical Infusion, Branch ONCE, 1 dose, On [place] 01/04/22 at 2315, STAT hydromorpho Yes 4ug Take 4 mcg Univers ne HCl 6-10 by mouth ity of (HYDROMORPH 19:50: every 12 [place] ONE ORAL) 08 (twelve) Medica l hours. Branch magnesium Yes 400mg 400 mg, Univ ers oxide 6-10 Oral, ity of (MAG-OX 14:00: DAILY, [place] 400) tablet 00 First dose Me dical 400 mg on Fri Branch 12/22/21 at 0900, Until Discontinu ed, Routine HYDROmorpho 2021- No 1mg 1 mg, Slow Univers ne 6 06-10 IV Push, ity of (DILAUDID) 05:15: 04:42 ONCE, 1 [place] injection 1 00 :00 dose, On Medi efrain mg Sat [place] 12/22/21 at 0015, Routine
Use approved by (Faculty): [facility] PROVIDER acetaminoph Yes 1000mg 1,000 mg, Univers en 6-10 Oral, Q8H, ity of (TYLENOL) 03:00: First dose [place] tablet 00 on [place] Medical 1,000 mg 12/21/21 at Branch 2200, Until Discontinu ed, Routine insulin Yes [id number] 52U inject 52 U nivers glargine 6-10 Units ity of 100 unit/mL 00:00: under the [place] injection 00 skin at Medical bedtime. Branch insulin 2021-0 Yes [id number] 52U inject 52 U nivers glargine 6-10 Units ity of 100 unit/mL 00:00: under the [place] injection 00 skin at Medical bedtime. Branch insulin 2021-0 Yes [id number] 52U inject 52 U nivers glargine 6-10 Units ity of 100 unit/mL 00:00: under the [place] injection 00 skin at Medical bedtime. Branch insulin 2021-0 Yes [id number] 52U inject 52 U nivers glargine 6-10 Units ity of 100 unit/mL 00:00: under the [place] injection 00 skin at Medical bedtime. Branch insulin 2021-0 Yes [id number] 52U inject 52 U nivers glargine 6-10 Units ity of 100 unit/mL 00:00: under the [place] injection 00 skin at Medical bedtime. Branch insulin 2021-0 Yes [id number] 52U inject 52 U nivers glargine 6-10 Units ity of 100 unit/mL 00:00: under the [place] injection 00 skin at Medical bedtime. Branch insulin 2021-0 Yes [id number] 52U inject 52 U nivers glargine 6-10 Units ity of 100 unit/mL 00:00: under the [place] injection 00 skin at Medical bedtime. Branch insulin Yes [id number] 52U inject 52 U nivers glargine 6-10 Units ity of 100 unit/mL 00:00: under the [place] injection 00 skin at Medical bedtime. Branch insulin 2021- No [id number] 52U inject 52 Univers glargine 6-10 07-30 Units ity of 100 unit/mL 00:00: 00:00 under the [place] injection 00 :00 skin at Medical bedtime. Branch insulin 2021- No [id number] 52U inject 52 Univers glargine 6-10 07-30 Units ity of 100 unit/mL 00:00: 00:00 under the [place] injection 00 :00 skin at Medical bedtime. Branch Insulin 2021- No [id number] Use as Uni vers Safety 12-22 directed ity of [place], 00:00: 04:59 [place] Disp, 29 00 :00 Medical gauge x Branch 3/16" Ndle Insulin 2021- No [id number] Use as Uni vers Safety 12-22 directed ity of [place], 00:00: 04:59 [place] Disp, 29 00 :00 Medical gauge x Branch 3/16" Ndle Insulin 2021-0 2021- No [id number] Use as Uni vers Safety 12-22 directed ity of [place], 00:00: 04:59 [place] Disp, 29 00 :00 Medical gauge x Branch 3/16" Ndle Insulin 2021-0 2021- No [id number] Use as Uni vers Safety 12-22 directed ity of [place], 00:00: 04:59 [place] Disp, 29 00 :00 Medical gauge x Branch 3/16" Ndle Insulin 2021-0 2021- No [id number] Use as Uni vers Safety 12-22 directed ity of [place], 00:00: 04:59 [place] Disp, 29 00 :00 Medical gauge x Branch 3/16" Ndle Insulin 2021-0 2021- No [id number] Use as Uni vers Safety 12-22 directed ity of [place], 00:00: 04:59 [place] Disp, 29 00 :00 Medical gauge x Branch 3/16" Ndle Insulin 2021-0 2021- No [id number] Use as Uni vers Safety 12-22 directed ity of [place], 00:00: 04:59 [place] Disp, 29 00 :00 Medical gauge x Branch 3/16" Ndle fluconazole 2021- No [id number] 200mg Take 1 Univers 200 mg 12-22 [...] Subcutaneo ity o f (LANTUS 02:00: us, [facility], [place] U-100) 00 First dose Medical injection on Sat Branch 30 Units 12/20/21 at 2100, Until Discontinu ed, Routine HYDROmorpho 2021- No .5mg 0.5 mg, Un ela ne 12-20 0609 Slow IV ity of (DILAUDID) 16:28: 19:33 [...] 72 hours enoxaparin Yes 40mg 40 mg, [facility] (LOVENOX) 12-20 Subcutaneo ity of injection 14:00: us, DAILY, [place] 40 mg 00 First dose Medical on Sat Branch 12/20/21 at 0900, Until Discontinu ed, Routine tamsulosin Yes .4mg 0.4 mg, [facility] ers (FLOMAX) 12-20 Oral, ity of capsule 0.4 14:00: DAILY, [place] mg 00 First dose Medical on Sat Branch 12/20/21 at 0900, Until Discontinu ed, Routine insulin No 10U 10 Units, [facility] ers glargine 12-20 Subcutaneo ity of (LANTUS 12:00: 12:51 us, [...] PROVIDER HYDROmorpho 2021- No 4mg 4 mg, [facility] ers ne 12-20 Oral, ity of (DILAUDID) 08:40: 16:28 [id number], [place] tablet 4 mg 04 :14 Starting Medi efrain on Sat12/20/21 at 0340, Until Sat12/20/21 at 1128, Routine, Pain (scale 7-10) HYDROmorpho 2021- No 1mg 1 mg, Slow Univers ne 12-20 IV Push, ity of (DILAUDID) 06:15: 05:41 ONCE, 1 [place] injection 1 00 :00 dose, On Medi efrain mg Sat12/20/21 Branch at 0115, Routine
Use approved by (Faculty): [facility] PROVIDER aztreonam 2021- No 1000mg 1,000 mg, Univers (AZACTAM) 12-20 06-10 IV ity of 1,000 mg in 05:30: 16:58 Piggyback, [place] NaCl 0.9% 00 :42 Q8H ABX, Medica l (NS) 100 mL First dose Br anch MINI-BAG on Sat12/20/21 at 0030, Until Discontinu ed, Administer over 30 Minutes, 100 mL
Reas on for Anti-Infec tive: Empiric Therapy for Suspected Infection< br>Empiric Therapy Site: Urine
D uration of therapy: 7 days Sliding Yes Subcutaneo [facility] ers Scale 12-20 us, Q4H, ity of Insulin-Reg 05:00: First dose [place] ular + Fsbg 00 on Sat Medica [...] < 70 proCHLORper Yes 10mg 10 mg, [facility] ers azine 12-20 Slow IV ity of (COMPAZINE) 04:10: Push, [place] injection 40 Q6HPRN, Medical 10 mg Starting Branch on Sat12/19/21 at 2310, Until Discontinu ed, Routine, Nausea and Vomiting (N/V) FENTanyl PF 2021- No 50ug 50 mcg, Un ela (SUBLIMAZE 12-20-08 Slow IV ity o f (PF)) 03:04: 03:37 Push, [place] injection 00 :00 ONCE, 1 Medical 50 mcg dose, On Branch Sat12/19/21 at 2215, STAT NaCl 0.9% 2021- No 1000mL at 999 Uni vers (NS) IV 12-20 06-08 mL/hr, ity of infusion 01:16: 01:54 Intravenou [place] 1,000 mL 00 :00 s, ONCE, 1 Medic al dose, On Sat12/19/21 at 2030, Routine insulin 2021- No .1U/kg 13.7 Units U nivers regular 12-20-08 (rounded ity of human 01:15: 01:51 from 13.74 [place] (HUMULIN R) 00 :00 Units = Medic al injection 0.1 Branch 13.7 Units Units/kg ?137.4 kg), Slow IV Push, ONCE, 1 dose, On Sat12/19/21 at 2030, STAT FENTanyl PF 2021- No 50ug 50 mcg, Un ela (SUBLIMAZE 12-20 Slow IV ity o f (PF)) 01:00: 01:52 Push, [place] injection 00 :00 ONCE, 1 Medical 50 mcg dose, On [place] Sat12/19/21 at 2015, [place]HARA NaCl 0.9% 2021- No 1000mL at 999 Uni vers (NS) IV 12-19 06-08 mL/hr, ity of infusion 23:47: 00:53 Intravenou [place] 1,000 mL 00 :00 s, ONCE, 1 Medic al dose, On [place] Sat12/19/21 at 1900, SAHARA hydromorpho Yes 4ug Take 4 mcg Univers ne HCl 6-07 by mouth ity of (HYDROMORPH 23:17: every 12 [place] ONE ORAL) 17 (twelve) Medica l hours. Branch hydromorpho Yes 4ug Take 4 mcg Univers ne HCl 6-06 by mouth ity of (HYDROMORPH 18:29: every 12 [place] ONE ORAL) 31 (twelve) Medica l hours. Branch insulin Yes [id number] 15U inject 15 U nivers lispro, 6-06 Units ity of human, 100 00:00: under the [place] unit/mL 00 skin 3 Medical injection (three) Branch times daily before meals. insulin 2021-0 Yes 15U inject 15 U nivers lispro, 6-06 Units ity of human, 100 00:00: under the [place] unit/mL 00 skin 3 Medical injection (three) Branch times daily before meals. insulin 2021-0 Yes 15U inject 15 U nivers lispro, [...] times daily before meals. insulin 0 Yes [id number] 52U inject 52 U nivers glargine 6-06 Units ity of 100 unit/mL 00:00: under the [place] injection 00 skin at Medical bedtime. Branch insulin 2021-0 Yes 15U inject 15 U nivers lispro, 6-06 Units ity of human, 100 00:00: under the [place] unit/mL 00 skin 3 Medical injection (three) Branch times daily before meals. insulin 2021-0 Yes [id number] 52U inject 52 U nivers glargine 6-06 Units ity of 100 unit/mL 00:00: under the [place] injection 00 skin at Medical bedtime. Branch insulin 0 Yes 15U inject 15 U nivers lispro, 6-06 Units ity of human, 100 00:00: under the [place] unit/mL 00 skin 3 Medical injection (three) Branch times daily before meals. insulin Yes [id number] 15U inject 15 U nivers lispro, 6-06 Units ity of human, 100 00:00: under the [place] unit/mL 00 skin 3 Medical injection (three) Branch times daily before meals. insulin Yes [id number] 15U inject 15 U nivers lispro, 6-06 Units ity of human, 100 00:00: under the [place] unit/mL 00 skin 3 Medical injection (three) Branch times daily before meals. insulin 2021- No [id number] 15U inject 15 [facility] lispro, 6-06 07-30 Units ity of human, 100 00:00: 00:00 under the [place] unit/mL 00 :00 skin 3 Medical injection (three) Branch times daily before meals. insulin 2021- No [id number] 15U inject 15 Univers lispro, 6-06 07-30 Units ity of human, 100 00:00: 00:00 under the [place] unit/mL 00 :00 skin 3 Medical injection (three) Branch times daily before meals. insulin 2021- No [id number] 52U inject 52 Univers glargine 12-18 06-10 Units ity of 100 unit/mL 00:00: 00:00 under the [place] injection 00 :00 skin at Medical bedtime. Branch HYDROmorpho No .5mg 0.5 mg, Un ela ne 12-17 06-06 Slow IV ity of (DILAUDID) 18:15: 18:14 Push, [place] injection 00 :00 Q8HPRN, Medical 0.5 mg Starting Branch on 12/17/21 at 1315, Until 12/18/21 at 1314, Routine, Pain (scale 7-10)
U se approved by (Faculty): [facility] PROVIDER insulin Yes .4U/kg/ 52 Units [...] Medi efrain on Sat Branch 12/16/21 at 2121, Until Discontinu ed, Routine, Pain (scale 4-6) HYDROmorpho 2021- No 1mg 1 mg, Slow Univers ne 12-17 06-05 IV Push, ity of (DILAUDID) 02:21: 18:05 Q4HPRN, [place] injection 1 39 :59 Starting Medi efrain mg on Sat Branch 12/16/21 at 2121, Until 12/17/21 at 1305, Routine, Pain (scale 7-10)
U se approved by (Faculty): [facility] PROVIDER Sliding Yes Subcutaneo Univ ers Scale 6-04 us, Q4H, ity of Insulin - 17:00: First dose [place] lispro 00 on [facility] (humaLOG) + 12/16/21 at [facility] Fsbg 1200, Testing Until Discontinu ed, Routine insulin Yes .35U/kg 15 Units Uni vers lispro 6-04 /d (rounded ity of (human) 17:00: from 15.05 [place] (HumaLOG 00 Units = Medical U-100) 0.35 Branch injection Units/kg/d 15 Units ay ?129 kg), Subcutaneo us, TID MEALS, First dose on 12/16/21 at 1200, Until Discontinu ed, Routine proMETHazin Yes 25mg 25 mg, Univ ers e 6-04 Oral, ity of (PHENERGAN) 15:09: Q6HPRN, Tim as tablet 25 59 Starting Medica l mg on Sat Branch 12/16/21 at 1009, Until Discontinu ed, Routine, Nausea and Vomiting (N/V) HYDROmorpho 2021- No 4mg 4 mg, Univ ers ne 6- 06-05 Oral, ity of (DILAUDID) 14:47: 02:22 [...] :00 doses, Medical mEq/100 mL First dose Bra uth RTU IVPB 20 on Sat mEq 12/15/21 at 1845, Last dose on Sat12/15/21 at 2000, 100 mL HYDROmorpho 2021- No 1mg 1 mg, Slow Univers ne 12-15 IV Push, ity of (DILAUDID) 18:08: 14:45 Q4HPRN, [place] injection 1 31 :34 Starting Medi efrain mg on Sat Branch 12/15/21 at 1308, Until 12/16/21 at [...] dose [place] mg 00 on Sat Medical 12/15/21 at Branch 0800, Until Discontinu ed, Routine cefTRIAXone 2021- No 1000mg 1,000 mg, Univers (ROCEPHIN) 12-1503 IV ity of 1,000 mg in 11:30: 16:04 Piggyback, [place] NaCl 0.9% 00 :40 Q24H ABX, Medic al (NS) 50 mL First dose Bra [facility] MINI-BAG on 12/15/21 at 0630, Until Discontinu ed, Administer over 30 Minutes, 50 mL
Reas on for Anti-Infec tive: Documented Infection< br>Documen lester Infection Site: Urine
D uration of Therapy: 7 days proMETHazin 2021- No 25mg 25 mg, IV Univers e 12-15 Piggyback, ity of (PHENERGAN) 11:22: 15:10 Q6HPRN, [place] 25 mg in 38 :15 Starting Medical NaCl 0.9% on Sat Branch (NS) 50 mL 12/15/21 at IV 0622, piggyback Until 12/16/21 at 1010, Routine, Nausea and Vomiting (N/V) acetaminoph Yes 650mg 650 mg, Un ela en 12-15 Oral, ity of (TYLENOL) 11:04: Q6HPRN, [place] tablet 650 03 Starting Medic al mg on Sat Branch 12/15/21 at 0604, Until Discontinu ed, Routine, Pain (scale 1-3), Temp > 38.5 C HYDROmorpho 2021- No 2mg 2 mg, Slow Univers ne 12-15 IV Push, ity of (DILAUDID) 11:03: 18:08 Q4HPRN, Itm as injection 2 22 :44 Starting Medi efrain mg on Sat Branch 12/15/21 at 0603, Until 12/15/21 at 1308, Routine, Pain (scale 7-10)
U [...] mEq 00 :34 Medical Branch D5W 0.45% 2021- No IV Univers NaCl 12-15 Infusion, ity [...] IV ity of human 08:15: 07:13 Push, [place] (HUMULIN R) 00 :00 ONCE, 1 Medic al injection 8 dose, On Bran ch Units Sat12/15/21 at 0315, Routine NaCl 0.9% No 1000mL at 999 Uni vers (NS) bolus 12-15 mL/hr, ity of infusion 07:15: 06:12 1,000 mL, Tim as 1,000 mL 00 :00 IV Medical Infusion, Branch ONCE, 1 dose, On Sat12/15/21 at 0215, STAT insulin 2021- No 8U 8 Units, Unive rs regular 12-15 Slow IV ity of human 07:15: 06:21 Push, [place] (HUMULIN R) 00 :00 ONCE, 1 Medic al injection 8 dose, On Bran ch Units Sat12/15/21 at 0215, STAT iopamidol 2021- No [id number] 100mL 100 mL, Univers (ISOVUE 12-15 Intravenou ity o f 370-500 mL) 05:45: 04:31 s, ONCE, 1 [place] injection 00 :00 dose, On Medica l 100 mL Sat12/15/21 Branch at 0045, Routine meropenem 2021- No 500mg 500 mg, IV Univers (MERREM) 12-15 Piggyback, ity of 500 mg in 05:00: 05:32 ONCE, 1 [place] NaCl 0.9% 00 :00 dose, On Medica l (NS) 50 mL 12/15/21 [facility] MINI-BAG at 0000, Administer over 30 Minutes, [...] 00 :00 dose, On Medical NaCl 0.9% [facility] 12/14/21 Bran ch (NS) 50 mL at 2345, IV SAHARA piggyback NaCl 0.9% 2021- No 1000mL at 999 Uni vers (NS) bolus 12-15 mL/hr, ity of infusion 04:30: 06:04 1,000 mL, Tim as 1,000 mL 00 :00 IV Medical Infusion, [place] ONCE, 1 dose, On [place] 12/14/21 at 2330, STAT FENTanyl PF 2021- No 100ug 100 mcg, Univers (SUBLIMAZE 12-15 Slow IV ity o f (PF)) 03:30: 03:24 Push, [place] injection 00 :00 ONCE, 1 Medical 100 mcg dose, On Branch [facility] 12/14/21 at 2230, STAT cefTRIAXone Yes 2000mg 2,000 mg, Univers (ROCEPHIN) 5-17 Intramuscu ity of injection 21:00: lar, Q24H, [place] 2,000 mg 00 First dose Medic al on [facility] 11/28/21 at 1600, Until Discontinu ed, SAHARA
Re ason for Anti-Infec tive: Documented Infection< br>Documen lester Infection Site: Skin / Soft Tissue
Duration of Therapy: Other (see Comments) hydromorpho 0 Yes 4ug Take 4 mcg Univers ne HCl 5-17 by mouth ity of (HYDROMORPH 17:43: every 12 [place] ONE ORAL) 55 (twelve) Medica l hours. Branch hydromorpho 2021-0 Yes 4ug Take 4 mcg Univers ne HCl 5-17 by mouth ity of (HYDROMORPH 17:43: every 12 [place] ONE ORAL) 55 (twelve) Medica l hours. Branch collagenase 2021-0 Yes [id number] Apply to Univers 250 5-17 affected ity of unit/gram 00:00: area(s) [place] ointment 00 daily. Medical Branch collagenase 2021-0 Yes [id number] Apply to Univers 250 5-17 affected ity of unit/gram 00:00: area(s) [place] ointment 00 daily. Medical Branch collagenase 2021-0 Yes [id number] Apply to Univers 250 5-17 affected ity of unit/gram 00:00: area(s) [place] ointment 00 daily. Medical Branch collagenase 2021-0 Yes [id number] Apply to Univers 250 5-17 affected ity of unit/gram 00:00: area(s) [place] ointment 00 daily. Medical Branch collagenase 2021-0 Yes [id number] Apply to Univers 250 5-17 affected ity of unit/gram 00:00: area(s) [place] ointment 00 daily. Medical Branch collagenase 2021-0 Yes [id number] Apply to Univers 250 5-17 affected ity of unit/gram 00:00: area(s) [place] ointment 00 daily. Medical Branch collagenase 2021-0 Yes [id number] Apply to Univers 250 5-17 affected ity of unit/gram 00:00: area(s) [place] ointment 00 daily. Medical Branch collagenase 2021-0 Yes [id number] Apply to Univers 250 5-17 affected ity of unit/gram 00:00: area(s) [place] ointment 00 daily. Medical Branch collagenase 2021-0 Yes [id number] Apply to Univers 250 5-17 affected ity of unit/gram 00:00: area(s) [place] ointment 00 daily. Medical Branch collagenase 2021-0 Yes [id number] Apply to Univers 250 5-17 affected ity of unit/gram 00:00: area(s) [place] ointment 00 daily. Medical Branch collagenase 2021-0 Yes [id number] Apply to Univers 250 5-17 affected ity of unit/gram 00:00: area(s) [place] ointment 00 daily. Medical Branch collagenase Yes [id number] Apply to Univers 250 5-17 affected ity of unit/gram 00:00: area(s) [place] ointment 00 daily. Medical Branch collagenase 0 Yes [id number] Apply to Univers 250 5-17 affected ity of unit/gram 00:00: area(s) [place] ointment 00 daily. Medical Branch collagenase 0 Yes [id number] Apply to Univers 250 5-17 affected ity of unit/gram 00:00: area(s) [place] ointment 00 daily. Medical Branch collagenase Yes [id number] Apply to Univers 250 5-17 affected ity of unit/gram 00:00: area(s) [place] ointment 00 daily. Medical Branch collagenase 0 Yes [id number] Apply to Univers 250 5-17 affected ity of unit/gram 00:00: area(s) [place] ointment 00 daily. Medical Branch collagenase 0 Yes [id number] Apply to Univers 250 5-17 affected ity of unit/gram 00:00: area(s) [place] ointment 00 daily. Medical Branch collagenase Yes [id number] Apply to Univers 250 5-17 affected ity of unit/gram 00:00: area(s) [place] ointment 00 daily. Medical Branch collagenase Yes [id number] Apply to Univers 250 5-17 affected ity of unit/gram 00:00: area(s) [place] ointment 00 daily. Medical Branch collagenase 0 Yes [id number] Apply to Univers 250 5-17 affected ity of unit/gram 00:00: area(s) [place] ointment 00 daily. Medical Branch collagenase 0 Yes [id number] Apply to Univers 250 5-17 affected ity of unit/gram 00:00: area(s) [place] ointment 00 daily. Medical Branch docusate 2021-2021- No [id number] 100mg Take 1 U nivers 100 mg 11-28 capsule by ity of capsule 00:00: 04:59 mouth 2 [place] 00 :00 (two) Medical times Branch daily for 30 days. lactobacill 2021- No [id number] .5mg Take 1 Univers us 5-17 06-17 tablet by ity of acidophilus 00:00: 04:59 mouth 2 [place] 00 :00 (two) Medical times Branch daily for 30 days. sennosides 2021- No [id number] 8.6mg Take 1 Univers 8.6 mg 5-17 06-17 tablet by ity of tablet 00:00: 04:59 mouth 2 [place] 00 :00 (two) Medical times Branch daily for 30 days. tamsulosin 2021- No [id number] .4mg Take 1 Univers 0.4 mg 24 5-17 06-17 capsule by ity of hr capsule 00:00: 04:59 mouth [place] 00 :00 daily for Medical 30 days. Branch docusate 2021- No [id number] 100mg Take 1 U nivers 100 mg 5-17 06-17 capsule by ity of capsule 00:00: 04:59 mouth 2 [place] 00 :00 (two) Medical times Branch daily for 30 days. lactobacill 2021- No [id number] .5mg Take 1 Univers us 5-17 06-17 tablet by ity of acidophilus 00:00: 04:59 mouth 2 [place] 00 :00 (two) Medical times Branch daily for 30 days. sennosides 2021- No [id number] 8.6mg Take 1 Univers 8.6 mg 5-17 06-17 tablet by ity of tablet 00:00: 04:59 mouth 2 [place] 00 :00 (two) Medical times Branch daily for 30 days. tamsulosin 2021- No [id number] .4mg Take 1 Univers 0.4 mg 24 5-17 06-17 capsule by ity of hr capsule 00:00: 04:59 mouth [place] 00 :00 daily for Medical 30 days. Branch docusate 2021- No [id number] 100mg Take 1 U nivers 100 mg 5-17 06-17 capsule by ity of capsule 00:00: 04:59 mouth 2 [place] 00 :00 (two) Medical times Branch daily for 30 days. lactobacill 2021- No [id number] .5mg Take 1 Univers us 5-17 06-17 tablet by ity of acidophilus 00:00: 04:59 mouth 2 [place] 00 :00 (two) Medical times Branch daily for 30 days. sennosides 2021- No [id number] 8.6mg Take 1 Univers 8.6 mg 5-17 06-17 tablet by ity of tablet 00:00: 04:59 mouth 2 [place] 00 :00 (two) Medical times Branch daily for 30 days. tamsulosin 2021- No [id number] .4mg Take 1 Univers 0.4 mg 24 5-17 06-17 capsule by ity of hr capsule 00:00: 04:59 mouth [place] 00 :00 daily for Medical 30 days. Branch docusate 2021- No [id number] 100mg Take 1 U nivers 100 mg 5-17 06-17 capsule by ity of capsule 00:00: 04:59 mouth 2 [place] 00 :00 (two) Medical times Branch daily for 30 days. lactobacill 2021- No [id number] .5mg Take 1 Univers us 5-17 06-17 tablet by ity of acidophilus 00:00: 04:59 mouth 2 [place] 00 :00 (two) Medical times Branch daily for 30 days. sennosides 2021- No [id number] 8.6mg Take 1 Univers 8.6 mg 5-17 06-17 tablet by ity of tablet 00:00: 04:59 mouth 2 [place] 00 :00 (two) Medical times Branch daily for 30 days. tamsulosin 2021- No [id number] .4mg Take 1 Univers 0.4 mg 24 5-17 06-17 capsule by ity of hr capsule 00:00: 04:59 mouth [place] 00 :00 daily for Medical 30 days. Branch docusate 2021- No [id number] 100mg Take 1 U nivers 100 mg 5-17 06-17 capsule by ity of capsule 00:00: 04:59 mouth 2 [place] 00 :00 (two) Medical times Branch daily for 30 days. lactobacill 2021- No [id number] .5mg Take 1 Univers us 5-17 06-17 tablet by ity of acidophilus 00:00: 04:59 mouth 2 [place] 00 :00 (two) Medical times Branch daily for 30 days. sennosides 2021- No [id number] 8.6mg Take 1 Univers 8.6 mg 11-28-17 tablet by ity of tablet 00:00: 04:59 mouth 2 [place] 00 :00 (two) Medical times Branch daily for 30 days. tamsulosin 2021- No [id number] .4mg Take 1 Univers 0.4 mg 24 11-28-17 capsule by ity of hr capsule 00:00: 04:59 mouth [place] 00 :00 daily for Medical 30 days. Branch metroNIDAZO 2021- No [id number] 500mg Take 1 Univers LE 500 mg 5-17 -21 tablet by ity of tablet 00:00: 04:59 mouth [place] 00 :00 every 12 Medical (twelve) Branch hours for 3 days. metroNIDAZO 2021- No [id number] 500mg Take 1 Univers LE 500 mg -28 11- tablet by ity of tablet 00:00: 04:59 mouth [place] 00 :00 every 12 Medical (twelve) Branch hours for 3 days. metroNIDAZO 2021- No 500mg 500 mg, U nivers LE (FLAGYL) 11-26 05-20 Oral, Q12H i ty of tablet [...] 2 g, IV Un ela (ROCEPHIN) 11-26 05-17 Piggyback, it y of 2 g in [...] 13 Starting Medical NaCl 0.9% on Sat (NS) 50 mL 11/22/21 at IV 1758, piggyback Until Discontinu ed, Routine, Nausea and Vomiting (N/V) collagenase Yes Topical Uni vers (SANTYL) 11-22 (Apply To ity of ointment 22:15: Affected [place] 00 Areas), Medical DAILY, Branch First dose on Sat11/22/21 at 1715, Until Discontinu ed, Routine HYDROmorpho 2021- No 1mg 1 mg, Slow Univers ne 11-22 IV Push, ity of (DILAUDID) 21:45: 21:25 ONCE, 1 [place] injection 1 00 :00 dose, On Medi efrain mg Sat11/22/21 at 1645, Routine
Use approved by (Faculty): [facility] PROVIDER magnesium 2021- No 2g 2 g, IV Univ ers sulfate in 11-22 Piggyback, it y of water 2 15:15: 16:11 Administer Tim as gram/50 mL 00 :00 over 60 Medica l (4 %) Minutes, Branch infusion 2 ONCE, 1 g dose, On Sat11/22/21 at 1015, Routine lactulose Yes 15mL 15 mL, Univer s (CEPHULAC) 11-22 Oral, ity of solution 15 14:00: DAILY, [place] mL 00 First dose Medical on Sat Branch 11/22/21 at 0900, Until Discontinu ed, Routine vancomycin 2021- No 125mg 125 mg, Un ela (FIRVANQ) 11-22 Oral, ity of 50 mg/mL 14:00: 16:27 Q24H, [place] oral 00 :02 First dose Medical solution on Sat Branch 125 mg 11/22/21 at 0900, Until Discontinu ed, Routine
Reason for Anti-Infec tive: Empiric Non-Surgic al Prophylaxi s
Durat ion of therapy: 7 days sennosides 0 Yes 8.6mg 8.6 mg, Uni vers (SENOKOT) [...] Branch 0800, Until Discontinu ed, Routine HYDROmorpho Yes 2mg 2 mg, Unive rs ne 11-22 Oral, TID, ity of (DILAUDID) 13:00: First dose [place] tablet 2 mg 00 on Sat Medica l 11/22/21 at Branch 0800, Until Discontinu ed lactobacill Yes .5mg 0.5 mg, Uni vers us 11-22 Oral, BID, ity of acidophilus 13:00: First dose [place] tablet 0.5 00 on Sat Medical mg 11/22/21 at Branch 0800, Until Discontinu ed, Routine ceFEPIme 2021- No 2g 2 g, IV Unive rs (MAXIPIME) 11-22 05-15 Piggyback, it y of 2 g in NaCl 11:00: 19:23 Q8H ABX, [place] 0.9% (NS) 00 :40 First dose Medi efrain 100 mL on Sat Branch MINI-BAG 11/22/21 at 0600, Until Discontinu ed, Administer over 30 Minutes, 100 mL
Reas on for Anti-Infec tive: Empiric Therapy for Suspected Infection< br>Empi colt Therapy Site: Bone
Du ration of therapy: 72 hours NaCl 0.9% 2021- No 1000mL at 50 Univ ers (NS) IV 11-22-16 mL/hr, IV ity of infusion 10:00: 16:41 Infusion, Tim as 1,000 mL 00 :28 CONTINUOUS Medic al , Starting Branch on Sat11/22/21 at 0500, Until 11/27/21 at 1141, Routine doxycycline No 100mg 100 mg, IV Univers (VIBRAMYCIN 11-22 Piggyback, i ty of ) 100 mg in 09:15: 23:11 Q12H ABX, [place] NaCl 0.9% 00 :48 First dose Medi efrain (NS) 100 mL on Sat Branch MINI-BAG 11/22/21 at 0415, Until Discontinu ed, [...] approved by (Faculty): [facility] PROVIDER FENTanyl PF No 50ug 50 mcg, Un ela (SUBLIMAZE 11-22 Slow IV ity o f (PF)) 05:30: 05:01 Push, [place] injection 00 :00 ONCE, 1 Medical 50 mcg dose, On Branch Sat11/22/21 at 0030, STAT iopamidol 2021- No [id number] 150mL 150 mL, Univers (ISOVUE 11-22 Intravenou ity o f 370-500 mL) 04:45: 03:34 s, ONCE, 1 [place] injection 00 :00 dose, On Medica l 150 mL Tue Branch 11/21/21 at 2345, Routine ceFEPIme 2021- No 2000mg 2,000 mg, U nivers (MAXIPIME) 11-22 IV ity of injection 04:15: 04:15 Piggyback, [place] 2,000 mg 00 :00 ONCE, 1 Medical dose, On [place] Sat11/21/21 at 2315, STAT
Re ason for Anti-Infec tive: Empiric Therapy for Suspected Infection< br>Empiric Therapy Site: Bone
Du ration of therapy: 72 hours FENTanyl PF 2021- No 75ug 75 mcg, Un ela (SUBLIMAZE 11-22 Slow IV ity o f (PF)) 03:45: 02:47 Push, [place] injection 00 :00 ONCE, 1 Medical 75 mcg dose, On [facility] 11/21/21 at 2245, STAT OXYCODONE 2021- No Take by [facility] ers HCL/ACETAMI 11-22 mouth. ity o f NOPHEN 03:22: 00:00 [place] (PERCOCET 50 :00 Medical ORAL) [place] FENTanyl PF 2021- No 100ug 100 mcg, Univers (SUBLIMAZE 11-22 Slow IV ity o f (PF)) 01:30: 01:12 Push, [place] injection 00 :00 ONCE, 1 Medical 100 mcg dose, On [place] Sat11/21/21 at 2030, STAT Lovenox No Notes: Memoria 4-13 (Same as: l 17:00: Lovenox) [place] promethazin No Notes: Erwin benjamin e 4-13 (Same as: l 16:47: Phenergan) [place] albuterol No Notes: SEE Me moria 0.083% 4-13 RT l inhalation 16:46: DOCUMENTAT H ermann solution 00 ION (Same as: Proventil) hydromorpho Yes 4 mg = 1 Me moria ne 4 mg 4-13 tab, PO, l oral tablet 16:43: Q12H, 0 Her manzo 00 Refill(s) Lantus 100 No 10 unit, Mem oria units/mL 4-13 SUB-Q, l 16:40: Daily, 0 Roff 00 Refill(s) Lantus 100 No 10 unit, Mem oria units/mL 4-12 0.1 mL, l 14:00: Route: SUB-Q, Drug form: SOLN, Daily, Dosing Weight 127.727, kg, Start date: 10/24/21 9:00:00 CDT, Duration: 30 day, Stop date: 11/22/21 9:00:00 CDT, Infuse over: 0 hr, 0 cefepime + No Notes: Memor ia sterile 4-12 (Same As: l water 10 mL 06:00: Maxipime) H MEDICATION WASTE Product Size: 1000 mg Product Wasted: _0__ mg cefepime + No Notes: Memor ia sterile 4-12 (Same As: l water 10 mL 05:00: Maxipime) MEDICATION WASTE Product Size: 1000 mg Product Wasted: _0__ mg insulin No Notes: Memoria lispro 4-12 (Same as: l 05:00: Humalog) Roll in palms of hands gently; Do not shake vigorously . WASTE: F/P - Black; E - Municipal Trash Bin Stable for 28 days at room temperatur e. Expires in days from ____Date Dilaudid No Notes: Memoria 4-11 (Same as: l 16:53: Dilaudid) Lantus 100 No 10 unit, Mem oria units/mL 4-11 0.1 mL, l 16:24: Route: Roff SUB-Q, Drug form: SOLN, ONCE, Dosing Weight 127.727, kg, Start date: 10/23/21 11:24:00 CDT, Stop date: 10/23/21 11:24:00 CDT, Infuse over: 0 hr, 0 NS (Bolus) No 500 mL, Erwin benjamin IV 4-11 500 ml/hr, l 15:15: Infuse Over: 1 hr, Route: IV, 500, Drug form: INJ, ONCE, Priority: STAT, Dosing Weight 127.727 kg, Start date: 10/23/21 10:15:00 CDT, Stop date: 10/23/21 10:15:00 CDT, 0 Dextrose 2021- No 12.5 gm, Memor ia 50% Syringe 4-11 25 mL, l (D50W) 13:59: Route: Jason 00 IVP, Drug Form: INJ, Dosing Weight 127.727, kg, PRN, PRN Blood Glucose Results, Start date: 10/23/21 8:59:00 CDT, Duration: 30 day, Stop date: 11/22/21 8:58:00 CDT, 0 glucagon No 1 mg, Memoria 4-11 Route: IM, l 13:59: Drug form: Jason 00 PDR/INJ, PRN, Dosing Weight 127.727, kg, PRN Blood Glucose Results, Start date: 10/23/21 8:59:00 CDT, Duration: 30 day, Stop date: 11/22/21 8:58:00 CDT, 0 insulin No Notes: [place] lispro 4-11 (Same as: l 13:59: Humalog) Roll in palms of hands gently; Do not shake vigorously . WASTE: F/P - Black; E - Municipal Trash Bin Stable for 28 days at room temperatur e. Expires in days from ____Date Lyrica No Notes: Memoria 4-11 (Same as: l 02:00: Lyrica) Roff 00 valproic No Notes: Memoria acid 100 4-10 Dilute in l mg/mL 17:00: at least Roff intravenous 00 50ml D5W solution + or NS. Sodium Infusion Chloride rate = 20 0.9% IV 50 mg/min mL (Same As: Depacon) Hazardous Drug Group 3:Reproduc tive risk Hazardous Drug -- Refer to safe handling procedure PPE Matrix Solu-MEDROL No Notes: Erwin benjamin 4-10 (Same l 16:43: as:Solu-ME Jason 00 DROL, A-Methapre d) MEDICATION WASTE Product Size: 1000 mg Product Wasted: _0__ mg magnesium No Notes: Memori a sulfate 10 WASTE: F/P l 16:43: - Sink; E - Municipal Trash Bin amitriptyli No Notes: Erwin benjamin ne 4-10 (Same as: l 02:00: Elavil) SUMAtriptan No Notes: Erwin benjamin -09 (Same As: l 18:45: Imitrex) promethazin No 6.25 mg, Me moria e 10-21 Route: l 18:44: IVPB, Q12H, Dosing Weight 127.727, kg, PRN Nausea & Vomiting, Start date: 10/21/21 13:44:00 CDT, Duration: 30 day, Stop date: 11/20/21 13:43:00 CDT Benadryl No Notes: Memoria 4-09 (Same as: l 18:37: Benadryl) Dilaudid No Notes: Memoria 4-09 (Same as: l 18:36: Dilaudid) Phenergan No Notes: Memori a 4-09 (Same as: l 18:33: Phenergan) 6.25 mg = 1/2 x 12.5 mg TAB ascorbic No Notes: Memoria acid -09 (Same as: l 14:00: Vitamin C) celecoxib No Notes: Memori a 4-09 NSAID. l 14:00: Please Roff 00 check indication . Not for seizure. (Same As: CeleBREX) Lidoderm 5% No Notes: Erwin benjamin topical 09 Apply only l film 14:00: once for Jason (patch) 00 up to 12 hours in a 24-hour period (12 hours on and 12 hours off). (Same as: Aspercreme Lidocaine Patch) "Remove old patch before applicatio n of new patch" zinc No Notes: Memoria sulfate - (Zinc l 14:00: sulfate Jason capsule) - 220 mg Zinc sulfate = 50 mg elemental zinc Same as Zinc Sulfate cefepime + No Notes: Memor ia sterile 10-21 (Same As: l water 10 mL 12:00: Maxipime) H erm MEDICATION WASTE Product Size: 1000 mg Product Wasted: _0__ mg hydromorpho No Notes: Erwin benjamin ne 10-21 (Same as: l 09:39: Dilaudid) Jason methocarbam No Notes: Erwin benjamin ol 10-21 (Same l 05:00: as:Robaxin Jason 00 ) docusate No Notes: Memoria 10-21 (Same as: l 02:00: Colace) Jason (Do Not Crush) senna No Notes: Memoria 10-21 (Same as: l 02:00: Senokot) Roff 00 Saline No Notes: Memoria Flush 0.9% 10-21 (Same as: l 02:00: BD Jason Posiflush) topiramate No Notes: Memor ia 10-21 (Same As: l 02:00: Topamax) Jason 00 "Do Not Crush" Hazardous Drug Group 3:Reproduc tive risk Hazardous Drug -- Refer to safe handling procedure PPE Matrix remove No Notes: Memoria patch 10-21 Remove l 02:00: patch 12 Jason 00 hours after applicatio n each day. acetaminoph No Notes: Max Memoria en 10-21 acetaminop l 01:00: hen 4000 Jason 00 mg/day (4 gm/day). (Same as: Tylenol Extra Strength) oxyCODONE No Notes: Memori a immediate 10-21 (Same as: l release 00:09: Roxicodone Herm carly 00 ) acetaminoph No Notes: Do M emoria en-hydrocod 10-21 not exceed l one 325 00:09: 4gm/day of Herm carly mg-10 mg 00 acetaminop oral tablet hen. (Same as: [place] 325/10) LORazepam No Notes: Memori a 10-21 (Same as: l 00:06: Ativan) Roff 00 oxyCODONE No Notes: Memori a immediate 4-09 (Same as: l release 00:06: Roxicodone ) Sodium No 1,000 mL, Memori a Chloride -08 Rate: 75 l 0.9% IV 23:43: ml/hr, Jason 1,000 mL 00 Infuse over: 13.3 hr, Route: IV, Dosing Weight 127.727 kg, Total Volume: 1,000, Start date: 10/20/21 18:43:00 CDT, Duration: 30 day, Stop date: 11/19/21 18:42:00 CDT, BSA: 2.37 m2, 0 acetaminoph No Notes: Do M emoria en 4-08 not exceed l 23:43: 4 gm/day. Jason (Same as: Tylenol) acetaminoph No Notes: Erwin benjamin en-hydrocod 4-08 (Same as: l one 325 23:43: Dighton Jason mg-5 mg 00 325/5) Do oral tablet not exceed 4gm/day of acetaminop hen. acetaminoph No Notes: Do M emoria en-hydrocod 4-08 not exceed l one 325 23:43: 4gm/day of Herm carly mg-10 mg 00 acetaminop oral tablet hen. (Same as: Dighton 325/10) bisacodyl No Notes: Memori a 4-08 (Same As: l 23:43: Dulcolax, Jason 00 Bisco-Lax) hydrALAZINE No Notes: Erwin benjamin 4-08 (Same as: l 23:43: Apresoline ) Push over 5 minutes labetalol No 10 mg, 2 Erwin benjamin 4-08 mL, Route: l 23:43: IVP, Drug form: INJ, Q15Min, Dosing Weight 127.727, kg, Start date: 10/20/21 18:43:00 CDT, Duration: 3 doses or times, Stop date: 10/20/21 19:13:00 CDT, 0 Saline No Notes: Memoria Flush 0.9% 4-08 (Same as: l 23:43: BD Posiflush) NaCl 0.9% 1000mL at 999 Uni vers (NS) bolus 10-16 mL/hr, ity of infusion 05:00: 05:59 1,000 mL, Tim as 1,000 mL 00 :00 IV Medical Piggyback, Branch ONCE, 1 dose, On Sat10/16/21 at 0000, STAT diphenhydrA No 25mg 25 mg, Uni vers MINE 10-16 Slow IV ity of (BENADRYL) 05:00: 04:47 Push, [place] injection 00 :00 ONCE, 1 Medical 25 mg dose, On Branch Sat10/16/21 at 0000, STAT haloperidol No 2.5mg 2.5 mg, U nivers lactate 10-16 Intravenou ity o f (HALDOL) 05:00: 04:47 s, ONCE, 1 [place] injection 00 :00 dose, On Medica l 2.5 mg Sat10/16/21 Branch at 0000, STAT topiramate Yes 25 mg = 1 Me moria 25 mg oral 3-29 cap, PO, l capsule 13:44: Q12H, # 60 Herm cap, 0 Refill(s), Pharmacy: [id number], 149.86, cm, 10/06/21 1:18:00 CDT, Height, 127.727, kg, 10/06/21 1:18:00 CDT, Weight topiramate No Notes: Memor ia 3-28 Hazardous l 22:05: Drug Group 3:Reproduc tive risk Hazardous Drug -- Refer to safe handling procedure PPE Matrix Sprinkle formulatio n. (Same As: Topamax) No Notes: Memoria packet 3-28 (Same as: l 21:30: Prudencio Unflavored ) Administer ing PRUDENCIO orally: Mix into 8-10 fl oz of room temperatur e juice, soda, or water. Also mixes well with warm beverages, like coffee or tea. Can be mixed with applesauce . Thoroughly stir for 30-60 seconds or until completely dissolved Lovenox No Notes: Memoria 3-27 (Same as: l 16:00: Lovenox) Jason 00 Magnesium No Notes: Memori a Sulfate - WASTE: F/P l 15:54: - Sink; E Roff 00 - Municipal Trash Bin methylPREDN No Notes: Erwin benjamin ISolone - (Same l SODium 15:54: as:Solu-ME Kristen nn SUCCinate 00 DROL, A-Methapre d) MEDICATION WASTE Product Size: 1000 mg Product Wasted: ___ mg Dilaudid No Notes: Memoria 3-27 (Same as: l 13:28: Dilaudid) Roff remove No Notes: Memoria patch 3- Remove l 02:00: patch 12 Roff 00 hours after applicatio n each day. Lyrica No Notes: Memoria 3-26 (Same as: l 21:58: Lyrica) Naproxen No Notes: Memoria 3-26 (Same as: l 21:58: Naprosyn) Jason 00 Take with food. Ascorbic No Notes: Memoria Acid 3- (Same as: l 14:00: Vitamin C) Zinc No Notes: Memoria Sulfate 3- (Zinc l 14:00: sulfate Roff capsule) - 220 mg Zinc sulfate = 50 mg elemental zinc Same as Zinc Sulfate multivitami No Notes: Erwin benjamin n 3-26 (Same l 14:00: as:Thera) WASTE: F/P - Black; E - Municipal Trash Bin Take with food. Lidocaine No Notes: Memori a 0.05 MG/MG 3-26 Apply only l Transdermal 14:00: once for He rmann Patch 00 up to 12 hours in a 24-hour period (12 hours on and 12 hours off). (Same as: Aspercreme Lidocaine Patch) "Remove old patch before applicatio n of new patch" Celebrex No Notes: Memoria 3-26 NSAID. l 03:15: Please Roff 00 check indication . Not for seizure. (Same As: CeleBREX) Robaxin No Notes: Memoria 10-07 (Same l 03:15: as:Robaxin ) gabapentin No Notes: Memor ia 10-07 (Same as: l 03:15: Neurontin) Tramadol No Notes: Not Mem oria 10-07 to exceed l 03:15: 400mg/day. (Same As: Ultram) Dexamethaso No Notes: Memoria ne 10-07 MEDICATION l 03:00: WASTE Product Size: 10 mg Product Wasted: ___ mg Dilaudid No Notes: Memoria 10-07 Same as l 02:58: Dilaudid Acetaminoph No Notes: Max Memoria en 10-06 acetaminop l 22:38: hen = 4000mg/day (4 gm/day). (Same as: Tylenol) Isolyte S No Notes: Memori a PH-7.4 10-06 (Same as: l (Bolus) IV 22:37: Isolyte S He rm PH7.4, Normosol-R PH 7.4, Plasma-Lyt e A ) Magnesium No Notes: Memori a Sulfate 10-06 WASTE: F/P l 22:37: - Sink; E - [facility] Trash Bin Iohexol No 100 mL, Memoria 10-06 Route: l 20:04: IVP, Drug Form: SOLN, Dosing Weight 127.727, kg, ONCALL, STAT, Start date: 10/06/21 15:04:00 CDT, Duration: 1 doses or times, Dose = 2.2ml/kg, Max dose = 100ml -- "To be infused by Radiology Staff ONLY" Docusate No Notes: Memoria 10-06 (Same as: l 14:00: Colace) (Do Not Crush) sennosides, No Notes: Erwin benjamin ALF 10-06 (Same as: l 14:00: Senokot) Saline No Notes: Memoria Flush 0.9% 3-25 preservati l 14:00: ve free. influenza Yes Notes: Memori a virus 3-25 (Same as: l vaccine, 06:10: Fluzone Christian n inactivated 26 Quadrivale nt, Fluarix Quadrivale nt) For patients 6 - 35 months of age (0.5 mL IM) For 3 years of age and older (0.5 mL IM) Shake well before use Lorazepam No Notes: Memori a 3-25 (Same as: l 06:05: Ativan) Methocarbam No Notes: Erwin benjamin ol 3-25 (Same l 06:05: as:Robaxin ) Sodium No 1,000 mL, Memori a Chloride 3-25 Rate: 50 l 0.9% IV 06:03: ml/hr, Roff 1,000 mL 00 Infuse over: 20 hr, Route: IV, Dosing Weight 131.818 kg, Total Volume: 1,000, Start date: 10/06/21 1:03:00 CDT, Duration: 30 day, Stop date: 11/05/21 1:02:00 CDT, BSA: 2.4 m2, 0 Labetalol No 10 mg, 2 Erwin benjamin 3-25 mL, Route: l 06:03: IVP, Drug form: INJ, Q15Min, Dosing Weight 131.818, kg, Start date: 10/06/21 1:03:00 CDT, Duration: 3 doses or times, Stop date: 10/06/21 1:33:00 CDT, 0 Hydralazine No Notes: Erwin benjamin 3-25 (Same as: l 06:03: Apresoline ) Push over 5 minutes Ondansetron No /= 4 Memori a 3-25 years, l 06:03: Pediatric Dosing Acetaminoph No Notes: Do M emoria en 325 MG / -25 not exceed l Hydrocodone 06:03: 4gm/day of Jason Bitartrate 00 acetaminop 10 MG Oral hen. (Same Tablet as: Dighton [Dighton 325/10) 10/325] Dilaudid No Notes: Memoria 3-25 Same as l 06:03: Dilaudid Benadryl No Notes: Memoria 3-25 (Same as: l 06:03: Benadryl) Jason 00 phenol No Notes: Memoria 3-25 Chlorasept l 06:03: ic [place] (Same as: Chlorasept ic, Sore Throat [place]) WASTE: F/P - Black; E - Municipal Trash Bin Bisacodyl No Notes: Memori a 3-25 (Same As: l 06:03: Dulcolax, Bisco-Lax) Robaxin No Notes: Memoria 3-25 (Same l 06:03: as:Robaxin ) Melatonin 3 No Notes: Erwin benjamin MG Extended -25 (Same as: l Release 06:03: Melatonin) Herm carly Tablet 00 Tylenol No Notes: Do Memor ia 3-25 not exceed l 06:03: 4 gm/day. Jason (Same as: Tylenol) Reglan No Notes: Memoria 3-25 (Same as: l 06:03: Reglan) Jason 00 Phenergan No Notes: Do Mem oria 3-25 not give l 06:03: IV push. (Same as: Phenergan) Saline No Notes: Memoria Flush 0.9% 25 preservati l 06:03: ve free. butalbital- 2021- No 2{tbl} 2 tablet, Univers acetaminoph 09-29-18 Oral, ity of en-caff 03:45: 03:10 ONCE, 1 [place] (ESGIC) 00 :00 dose, On Medical 50-325-40 [place] Branch mg tablet 2 09/28/21 at tablet 2245, SAHARA NaCl 0.9% No 500mL at 999 Univ ers (NS) bolus 09-29-18 mL/hr, 500 it y of infusion 02:30: [...] IV ity of (DILAUDID) 01:30: 01:25 Push, [place] injection 00 :00 ONCE, 1 Medical 0.5 mg dose, On Branch 08/08/21 at 1930, Routine
Use approved by (Faculty): ADC PROVIDER levoFLOXaci 2021- No [id number] 750mg Take 1 Univers n 750 mg 08-09 tablet by ity o f tablet 00:00: 05:59 mouth [place] 00 :00 daily for Medical 4 days. Branch levoFLOXaci 2021- No [id number] 750mg Take 1 Univers n 750 mg 08-09 tablet by ity o f tablet 00:00: 05:59 mouth [place] 00 :00 daily for Medical 4 days. Branch OXYCODONE Yes Take by Unive rs HCL/ACETAMI 1-25 mouth. ity of NOPHEN 19:49: [place] (PERCOCET 27 Medical ORAL) Branch OXYCODONE Yes Take by Unive rs HCL/ACETAMI 1-25 mouth. ity of NOPHEN 19:49: [place] (PERCOCET 27 Medical ORAL) Branch OXYCODONE Yes Take by Unive rs HCL/ACETAMI 1-25 mouth. ity of NOPHEN 19:49: [place] (PERCOCET 27 Medical ORAL) [place] OXYCODONE Yes Take by [facility] rs HCL/ACETAMI -25 mouth. ity of NOPHEN 19:49: [place] (PERCOCET 27 Medical ORAL) [place] vancomycin 2021- No 125mg 125 mg, Un [...] of therapy: 72 hours lactobacill 2021- No [id number] .5mg Take 1 Univers us 08-08-25 tablet by ity of acidophilus 00:00: 05:59 mouth 2 [place] 00 :00 (two) Medical times Branch daily for 30 days. lactobacill 2021- No [id number] .5mg Take 1 Univers us 08-08 02-25 tablet by ity of acidophilus 00:00: 05:59 mouth 2 [place] 00 :00 (two) Medical times Branch daily for 30 days. vancomycin 2021- No [id number] 125mg Take 1 Univers 125 mg 08-08 capsule by ity of capsule 00:00: 05:59 mouth 4 [place] 00 :00 (four) Medical times Branch daily for 5 days. vancomycin 202- No [id number] 125mg Take 1 Univers 125 mg 08-08 capsule by ity of capsule 00:00: 05:59 mouth 4 [place] 00 :00 (four) Medical times Branch daily [...] 08-06 Oral, ity of n 20:39: Q6HPRN, [place] (PERCOCET) 03 Starting Medic al 5-325 mg [...] of 1,000 mg in 15:45: 18:30 Piggyback, [place] NaCl 0.9% 00 :00 Q24H ABX, Medic [...] on Sat Medical mg 08/04/21 at Branch 2000, Until Discontinu ed, Routine vancomycin 2021- No 250mg 250 mg, Un ela (VANCOCIN) 08-05 Oral, QID, it y of capsule 250 02:00: 16:20 First dose [place] mg 00 :40 (after Medical last Branch reorder) on 08/04/21 at 2000, Until Discontinu ed, SAHARA
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
[...] uration of Therapy: Other (see Comments) HYDROmorpho 2022- No .5mg 0.5 mg, Un ela [...] Yes 650mg 650 mg, Un ela en -20 Oral, ity of (TYLENOL) 09:07: Q6HPRN, [place] tablet 650 10 Starting Medic al mg on Libra Branch 08/03/21 at 0307, Until Discontinu ed, Routine, Pain (scale 1-3) meropenem 2021- No 1g 1 g, IV Univ ers (MERREM) 1 08-03 Piggyback, it y of g in NaCl 07:15: 08:49 ONCE, 1 [place] 0.9% (NS) 00 :00 dose, On Medica l 100 mL [facility] Branch MINI-BAG 08/03/21 at 0115, Administer [...] [place] mg 00 :00 dose, On Medical [facility] Branch 07/31/21 at 2130, SAHARA
Re ason [...] 00 :00 dose, On Medical NaCl 0.9% [facility] Branch (NS) 50 mL 07/31/21 at piggyback 1915, 50 mL cefdinir 2021- No [id number] 300mg Take 1 U nivers 300 mg 07-31 capsule by ity of capsule 00:00: 05:59 mouth [place] 00 :00 every 12 Medical (twelve) Branch hours for 10 days. cefdinir 2021- No [id number] 300mg Take 1 U nivers 300 mg [...] 07/29/21 at 1645, Routine methocarbam 2021-0 Yes [id number] 1000mg Take 2 Univers oL 500 mg 1-15 tablets by ity of tablet 00:00: mouth 4 (four) Medical times Branch daily as needed for Pain (scale 1-3). methocarbam 2021-0 Yes [id number] 1000mg Take 2 Univers oL 500 mg 1-15 tablets by ity of tablet 00:00: mouth 4 00 (four) Medical times Branch daily as needed for Pain (scale 1-3). methocarbam Yes [id number] 1000mg Take 2 Univers oL 500 mg 1-15 tablets by ity of tablet 00:00: mouth 4 00 (four) Medical times Branch daily as needed for Pain (scale 1-3). methocarbam 0 Yes [id number] 1000mg Take 2 Univers oL 500 mg 1-15 tablets by ity of tablet 00:00: mouth 4 [place] 00 (four) Medical times Branch daily as needed for Pain (scale 1-3). methocarbam Yes [id number] 1000mg Take 2 Univers oL 500 mg 1-15 tablets by ity of tablet 00:00: mouth 4 00 (four) Medical times Branch daily as needed for Pain (scale 1-3). methocarbam Yes [id number] 1000mg Take 2 Univers oL 500 mg 1-15 tablets by ity of tablet 00:00: mouth 4 00 (four) Medical times Branch daily as needed for Pain (scale 1-3). methocarbam 2021- No [id number] 1000mg Take 2 Univers oL 500 mg 1-15 05-11 tablets by ity of tablet 00:00: 00:00 mouth 4 [place] 00 :00 (four) Medical times Branch daily as needed for Pain (scale 1-3). proMETHazin 2020-07 No 25mg 25 mg, IV Univers e -06-07 Piggyback, ity of (PHENERGAN) 23:15: 22:20 ONCE, 1 [place] 25 mg in 00 :00 dose, On Medical NaCl 0.9% Sat Branch (NS) 50 mL 06/07/21 piggyback at 1715, 50 mL FENTanyl PF 2020-07- No 75ug 75 mcg, Un eal (SUBLIMAZE 08-07 Slow IV ity o f (PF)) 22:15: 22:20 Push, [place] injection 00 :00 ONCE, 1 Medical 75 mcg dose, On Branch 06/07/21 at 1615, Routine fidaxomicin 2020-07 Yes [id number] 200mg Take 1 Univers 200 mg 1-24 tablet by ity of tablet 00:00: mouth 2 [place] 00 (two) Medical times Branch daily. proMETHazin 2020-07 Yes [id number] 25mg Take 1 Univers e 25 mg 1-24 tablet by ity of tablet 00:00: mouth 00 every 6 Medical (six) Branch hours as needed for Nausea and Vomiting (N/V). fidaxomicin 2020-07 Yes [id number] 200mg Take 1 Univers 200 mg 1-24 tablet by ity of tablet 00:00: mouth 2 (two) Medical times Branch daily. proMETHazin 2020-07 Yes [id number] 25mg Take 1 Univers e 25 mg 1-24 tablet by ity of tablet 00:00: mouth 00 every 6 Medical (six) Branch hours as needed for Nausea and Vomiting (N/V). cholestyram 2020-07 Yes Univer s ine 4 gram 1-24 ity of packet 00:00: Medical Branch fidaxomicin 2020-07 Yes [id number] 200mg Take 1 Univers 200 mg 1-24 tablet by ity of tablet 00:00: mouth 2 (two) Medical times Branch daily. proMETHazin 2020-07 Yes [id number] 25mg Take 1 Univers e 25 mg 1-24 tablet by ity of tablet 00:00: mouth every 6 Medical (six) Branch hours as needed for Nausea and Vomiting (N/V). cholestyram 2020-07 Yes Univer s ine 4 gram 1-24 ity of packet 00:00: [place] Medical Branch cholestyram 2020-07 Yes Univer s ine 4 gram 1-24 ity of packet 00:00: Medical Branch cholestyram 2020-07 Yes Univer s ine 4 gram 1-24 ity of packet 00:00: [place] Medical Branch cholestyram 2020-07 Yes Univer s ine 4 gram 1-24 ity of packet 00:00: [place] 00 Medical Branch cholestyram 2020-07 Yes Univer s ine 4 gram 1-24 ity of packet 00:00: [place] Medical Branch fidaxomicin 2020-07 Yes [id number] 200mg Take 1 Univers 200 mg 1-24 tablet by ity of tablet 00:00: mouth 2 (two) Medical times Branch daily. proMETHazin 2020-07 Yes [id number] 25mg Take 1 Univers e 25 mg 1-24 tablet by ity of tablet 00:00: mouth 00 every 6 Medical (six) Branch hours as needed for Nausea and Vomiting (N/V). cholestyram 2020-07 No Unive rs ine 4 gram 08-07 05-11 ity of packet 00:00: 00:00 [place] 00 :00 Medical Branch fidaxomicin 2020-07- No [id number] 200mg Take 1 Univers 200 mg 08-07- tablet by ity of tablet 00:00: 00:00 mouth 2 [place] 00 :00 (two) Medical times Branch daily. proMETHazin 2020-07- No [id number] 25mg Take 1 Univers e 25 mg 08-0725 tablet by ity of tablet 00:00: 00:00 mouth [place] 00 :00 every 6 Medical (six) Branch hours as needed for Nausea and Vomiting (N/V). FENTanyl PF No 50ug 50 mcg, Un ela (SUBLIMAZE 11-21 05-10 Intravenou it y of (PF)) 02:45: 01:34 s, ONCE, 1 [place] injection 00 :00 dose, [place] Medic al 50 mcg 11/20/20 at Branch 2145, Routine cefTRIAXone No 1000mg 1,000 mg, Univers (ROCEPHIN) 11-21 05-10 IV ity of 1,000 mg in 02:30: 01:55 Piggyback, [place] NaCl 0.9% 00 :00 ONCE, 1 Medical (NS) 50 mL dose, [place] Bran ch MINI-BAG 11/20/20 at 2130, 50 mL
Reas on for Anti-Infec tive: Documented Infection< br>Documen lester Infection Site: Urine
D uration of Therapy: 7 days famotidine No 20mg 20 mg, Univ ers (PEPCID 5-10 05-10 Slow IV ity of (PF)) 01:00: 00:12 Push, [place] injection 00 :00 ONCE, 1 Medical 20 mg dose, [facility] 11/20/20 at 2000, SAHARA proMETHazin 2020- No 25mg 25 mg, IV Univers e 5-10 05-10 Piggyback, ity of (PHENERGAN) 00:45: 00:11 ONCE, 1 [place] 25 mg in 00 :00 dose, [place] [facility] NaCl 0.9% 11/20/20 at Branc h (NS) 50 mL 1945, 50 piggyback mL FENTanyl PF No 50ug 50 mcg, Un ela (SUBLIMAZE [...] 1,000 mL 00 :00 IV Medical Infusion, [place] ONCE, 1 dose, 11/20/20 at 1900, SAHARA cefdinir 2020- No [id number] 300mg Take 1 U nivers 300 mg 11-20 05-20 capsule by ity of capsule 00:00: 04:59 mouth 2 [place] 00 :00 (two) Medical times [place] daily for 10 days. buPROPion No 150mg QD Take [address] [facility] (WELLBUTRIN 1-17 01-16 tablet [facility] XL) 150 MG 00:00: 23:59 (150 mg Med ical 24 hr 00 :00 total) by Center tablet mouth daily. citalopram No 40mg QD Take [address] [facility] (CELEXA) 40 1-17 01-16 tablet (40 L [facility] MG tablet 00:00: 23:59 mg total) Me dical 00 :00 by mouth Center daily. oxyCODONE-a Yes 1{tbl} Take [address] cetaminophe 1-16 tablet by Charly es n 14:44: mouth Medical (PERCOCET) 50 every 4 Center 10-325 mg (four) per tablet hours as needed for Pain. oxyCODONE-a 2019-0 Yes 1{tbl} Take [address] cetaminophe 1-16 tablet by Charly es n 14:44: mouth Medical (PERCOCET) 50 every 4 Center 10-325 mg (four) per tablet hours as needed for Pain. zinc 2019-0 Yes 5g Q.5D Apply [address] [facility] oxide-birdie 1-16 topically Charly es latum 00:00: 2 (two) Medical (CRITIC-AID 00 times Center ) 20-51 % daily. Pste topical paste meropenem 2020-0 Yes 1g Inject [address] [facility] [address] (MERREM) 1-16 intravenou [facility] MBP 1 gm in 00:00: sly every M edical 100 mL NS 00 8 (eight) Cente r hours. insulin 2020-0 Yes 58U Q.5D Inject 58 [facility] glargine 1-16 Units [facility] (LANTUS) 00:00: subcutaneo Med ical 100 unit/mL 00 usly 2 Center injection (two) times daily Use as directed. zinc 2020-0 Yes 5g Q.5D Apply [address] [facility] oxide-birdie 1-16 topically Charly es latum 00:00: 2 (two) Medical (CRITIC-AID 00 times Center ) 20-51 % daily. Pste topical paste meropenem 2020-0 Yes 1g Inject [address] (MERREM) 1-16 intravenou [facility] MBP 1 gm in 00:00: sly every M edical 100 mL NS 00 8 (eight) Cente r hours. insulin 2020-0 Yes 58U Q.5D Inject 58 [facility] glargine 1-16 Units [facility] (LANTUS) 00:00: subcutaneo Med ical 100 unit/mL 00 usly 2 Center injection (two) times daily Use as directed. insulin 2019-0 2020- No 0U Inject [facility] lispro 1-16 01-15 0-12 Units [facility] (HUMALOG) 00:00: 23:59 subcutaneo M edical 100 unit/mL 00 :00 usly 3 Center injection (three) times daily before meals. insulin 2019-0 2020- No 25U Inject [address] [facility] [...] Total Volume: 1,000, Start date: 05/22/18 5:04:00 OFFICE REP, Duration: 30 day, Stop date: 06/21/18 5:03:00 OFFICE REP, 2.4, m2 normal 2017-07 No 1,000 mL, Memori a saline 0.9% 07-22 Rate: 100 l IV 1,000 mL 11:04: ml/hr, Herm Infuse over: 10 hr, Route: IV, Dosing Weight 131.818 kg, Total Volume: 1,000, Start date: 05/22/18 5:04:00 OFFICE REP, Duration: 30 day, Stop date: 06/21/18 5:03:00 OFFICE REP, 2.4, m2 Magnesium 2017-07 No Notes: Memori a Sulfate 07-22 WASTE: F/P l 10:36: - Sink; E - Municipal Trash Bin Isolyte S 2017-07 No Notes: Memori a PH-7.4 07-22 (Same as: l (Bolus) IV 10:36: Isolyte S He rmann 00 PH 7.4) Magnesium 2017-07 No Notes: Memori a Sulfate 07-22 WASTE: F/P l 10:36: - Sink; E Roff 00 - Municipal Trash Bin Isolyte S 2017-07 No Notes: Memori a PH-7.4 -08 (Same as: l (Bolus) IV 10:36: Isolyte S He rmann 00 PH 7.4) Phenergan 2017-07 No 12.5 mg, Erwin benjamin 1-08 0.5 mL, l 10:35: Route: Roff 00 IVPB, Drug form: INJ, ONCE, Dosing Weight 131.818, kg, Priority: STAT, Start date: 05/22/18 4:35:00 OFFICE REP, Stop date: 05/22/18 4:35:00 OFFICE REP Phenergan 2017-07 No 12.5 mg, Erwin benjamin 1-08 0.5 mL, l 10:35: Route: Jason 00 IVPB, Drug form: INJ, ONCE, Dosing Weight 131.818, kg, Priority: STAT, Start date: 05/22/18 4:35:00 OFFICE REP, Stop date: 05/22/18 4:35:00 OFFICE REP Citalopram Citalopram Yes Na Gamble 1 tablet [facility] Hydrobromid Hydrobromid 7-16 S pirit e e 00:00: - [facility] Seroquel Seroquel 0 Yes Na Gamble 1 tablet Common 7-16 Spirit 00:00: - [facility] Docusate Yes 100 mg = 1 Mem oria Sodium 100 5-08 cap, PO, l MG Oral 14:56: BID, 0 Roff Capsule 00 Refill(s) Zosyn Yes 0 Memoria 5-08 Refill(s) l 14:56: Jason 00 celecoxib Yes 200 mg = 1 Me moria 200 mg oral 5-08 cap, PO, l capsule 14:56: BID, 0 Jason 00 Refill(s) ascorbic Yes 500 mg = 1 Mem oria acid 5-08 tab, PO, l 14:56: BID, 0 Roff 00 Refill(s) acetaminoph Yes 1,000 mg = [...] tab, PO, l tablet 14:56: Q8H, PRN Roff 00 Anxiety, 0 Refill(s) Lidocaine Yes 3 patch, Erwin benjamin Hydrochlori 5-08 TOP, l de 0.05 14:56: Daily, Jason MG/MG 00 Remove Transdermal after 12 Patch hours, 0 [Lidoderm] Refill(s) Docusate Yes 100 mg = 1 Mem oria Sodium 100 5-08 cap, PO, l MG Oral 14:56: BID, 0 Roff Capsule 00 Refill(s) Zosyn Yes 0 Memoria 5-08 Refill(s) l 14:56: Jason 00 celecoxib Yes 200 mg = 1 Me moria 200 mg oral 5-08 cap, PO, l capsule 14:56: BID, 0 Roff 00 Refill(s) ascorbic Yes 500 mg = 1 Mem oria acid 5-08 tab, PO, l 14:56: BID, 0 Roff 00 Refill(s) acetaminoph Yes 1,000 mg = [...] n 5-08 Daily, 0 l 14:56: Refill(s) Roff 00 methocarbam Yes 1,000 mg = Memoria ol 500 mg 5-08 2 tab, PO, l oral tablet 14:56: Q8H, 0 Herm carly 00 Refill(s) LORazepam Yes 0.5 mg = 1 Me moria 0.5 mg oral 5-08 tab, PO, l tablet 14:56: Q8H, PRN Roff 00 Anxiety, 0 Refill(s) Lidocaine Yes 3 patch, Erwin benjamin Hydrochlori 5-08 TOP, l de 0.05 14:56: Daily, Jason MG/MG 00 Remove Transdermal after 12 Patch hours, 0 [Lidoderm] Refill(s) Robaxin No Notes: Memoria 5-06 (Same l 21:00: as:Robaxin Roff 00 ) Robaxin No Notes: Memoria 5-06 (Same l 21:00: as:Robaxin Roff 00 ) Oxycodone No Notes: Memori a Hydrochlori 5-06 (Same as: l de 5 MG 18:06: Roxicodone Herm carly Oral Tablet 00 ) Oxycodone No Notes: Memori a Hydrochlori 5-06 (Same as: l de 5 MG 18:06: Roxicodone Herm carly Oral Tablet 00 ) Ativan No Notes: Memoria 5-06 (Same as: l 15:18: Ativan) Jason Ativan No Notes: Memoria 5-06 (Same as: l 15:18: Ativan) Jason Trazodone No Notes: Memori a Hydrochlori 5-06 (Same As: l de 50 MG 02:00: Desyrel) Kristen nn Oral Tablet 00 remove No Notes: Memoria patch 5-06 Remove l 02:00: patch 12 Jason 00 hours after applicatio n each day. Trazodone No Notes: Memori a Hydrochlori 5-06 (Same As: l de 50 MG 02:00: Desyrel) Kristen nn Oral Tablet 00 remove No Notes: Memoria patch 5-06 Remove l 02:00: patch 12 Jason 00 hours after applicatio n each day. Oxycodone No Notes: Memori a Hydrochlori 5-05 (Same as: l de 5 MG 22:01: Roxicodone Herm carly Oral Tablet 00 ) Oxycodone No Notes: Memori a Hydrochlori 5-05 (Same as: l de 5 MG 22:01: Roxicodone Herm carly Oral Tablet 00 ) Celebrex No Notes: Memoria 5-05 NSAID. l 22:00: Please Roff 00 check indication . Not for seizure. (Same As: CeleBREX) Celebrex No Notes: Memoria 5-05 NSAID. l 22:00: Please Roff 00 check indication . Not for seizure. (Same As: CeleBREX) Vancomycin No 2000 mg: Me moria 5-05 infuse l 21:00: over 2.5 Jason 00 hours Vancomycin No 2001 mg: Me moria 5-05 [...] patch before applicatio n of new patch" Lidocaine No Notes: Memori a Hydrochlori 5-05 Apply only l de 0.05 14:00: once for Christian n MG/MG 00 up to 12 Transdermal hours in a Patch 24-hour [Lidoderm] period (12 hours on and 12 hours off). (Same as: Lidoderm) "Remove old patch before applicatio n of new patch" Phenergan No Notes: Do Mem oria 5-04 not give l 22:40: IV push. Roff (Same as: Phenergan) Dilaudid No Notes: Memoria 5-04 Same as l 22:40: Dilaudid Jason Phenergan No Notes: Do Mem oria 5-04 not give l 22:40: IV push. Jason (Same as: Phenergan) Dilaudid No Notes: Memoria 5-04 Same as l 22:40: Dilaudid Tramadol No Notes: Not Mem oria 5-04 to exceed l 22:00: 400mg/day. Roff 00 (Same As: Ultram) gabapentin No Notes: Memor ia 5-04 (Same as: l 22:00: Neurontin) Roff 00 Acetaminoph No Notes: Max Memoria en 5-04 acetaminop l 22:00: hen 4000 Roff 00 mg/day (4 gm/day). (Same as: Tylenol Extra Strength) Robaxin No Notes: Memoria 5-04 (Same l 22:00: as:Robaxin ) Tramadol No Notes: Not Mem oria 5-04 to exceed l 22:00: 400mg/day. Roff 00 (Same As: Ultram) gabapentin No Notes: Memor ia -04 (Same as: l 22:00: Neurontin) Roff 00 Acetaminoph No Notes: Max Memoria en 5-04 acetaminop l 22:00: hen 4000 Roff 00 mg/day (4 gm/day). (Same as: Tylenol Extra Strength) Robaxin No Notes: Memoria 5-04 (Same l 22:00: as:Robaxin ) Oxycodone No Notes: Memori a Hydrochlori 5-04 (Same as: l de 5 MG 21:33: Roxicodone Herm carly Oral Tablet 00 ) Oxycodone No Notes: Memori a Hydrochlori 5-04 (Same as: l de 5 MG 21:33: Roxicodone Herm carly Oral Tablet 00 ) Beneprotein No Notes: Erwin benjamin 7 gm pkt 5-04 (Same as: l 21:30: Beneprotei Jason 00 n) Beneprotein No Notes: Erwin benjamin 7 gm pkt 5-04 (Same as: l 21:30: Beneprotei Roff 00 n) Acetaminoph No 1 tab, PO, Memoria en 325 MG / 5-04 TID, 0 l Oxycodone 17:12: Refill(s) Her manzo Hydrochlori 00 de 10 MG Oral Tablet [Percocet 10/325] Acetaminoph No 1 tab, PO, Memoria en 325 MG / 5-04 TID, 0 l Oxycodone 17:12: Refill(s) Her manzo Hydrochlori 00 de 10 MG Oral Tablet [Percocet 10/325] Dilaudid No 0.5 mg, Memori a 5-04 0.25 mL, l 16:01: Route: IVP, Drug form: INJ, ONCE, Start date: 11/15/17 11:01:00 CDT, Stop date: 11/15/17 11:01:00 CDT Dilaudid No 0.5 mg, Memori a 5-04 [...] 10:43:00 CDT, Stop date: 11/15/17 10:43:00 CDT Phenergan No Notes: Memori a 5-04 (Same as: l 15:43: Phenergan) Dilaudid No 2 mg, Memoria 5-04 Route: l 15:43: IVP, ONCE, Dosing Weight 127.027, kg, Priority: STAT, Start date: 11/15/17 10:43:00 CDT, Stop date: 11/15/17 10:43:00 CDT Docusate No Notes: Memoria 5-04 (Same as: l 14:00: Colace) (Do Not Crush) Zinc No Notes: Memoria Sulfate 5-04 (Zinc l 14:00: sulfate capsule) - 220 mg Zinc sulfate = 50 mg elemental zinc Same as Zinc Sulfate ascorbic No Notes: Memoria acid 5-04 (Same as: l 14:00: Vitamin C) multivitami No Notes: Erwin benjamin n 5-04 (Same l 14:00: as:Thera) WASTE: F/P - Black; E - Municipal Trash Bin Take with food. Docusate No Notes: Memoria 5-04 (Same as: l 14:00: Colace) (Do Not Crush) Zinc No Notes: Memoria Sulfate 5-04 (Zinc l 14:00: sulfate capsule) - 220 mg Zinc sulfate = 50 mg elemental zinc Same as Zinc Sulfate ascorbic No Notes: Memoria acid 5-04 (Same as: l 14:00: Vitamin C) Jason 00 multivitami No Notes: Erwin benjamin n - (Same l 14:00: as:Thera) WASTE: F/P - Black; E - Municipal Trash Bin Take with food. Naproxen No Notes: Memoria 5- (Same as: l 07:00: Naprosyn) Roff Take with food. Zosyn No Notes: Memoria 5- (Same as: l 07:00: Zosyn) Roff 00 Dosing based on Piperacill in component MEDICATION [...] ia - (Same as: l 07:00: Lovenox) Roff Naproxen No Notes: Memoria - (Same as: l 07:00: Naprosyn) Jason 00 Take with food. Zosyn No Notes: Memoria - (Same as: l 07:00: Zosyn) Jason 00 Dosing based on Piperacill in component MEDICATION WASTE Product Size: 3375 mg Product Wasted: ___ mg Vancomycin No 2001 mg: Me moria -04 infuse l 07:00: over 2.5 Roff 00 hours For adult patients only: Round to nearest 250 mg per Medical Staff approval MEDICATION WASTE Product Size: 1000 mg Product Wasted: ___ mg Enoxaparin No Notes: Memor ia 5-04 (Same as: l 07:00: Lovenox) Jason Sodium [...] 5-04 (Same as: l 06:46: BD Jason 00 Posiflush) Acetaminoph No Notes: Do M emoria en 5-04 not exceed l 06:46: 4 gm/day. Jason 00 (Same as: Tylenol) Acetaminoph No Notes: Erwin benjamin en 325 MG / 5-04 (Same as: l Hydrocodone 06:46: Dighton Kristen nn Bitartrate 00 325/5) Do 5 MG Oral not exceed Tablet 4gm/day of acetaminop hen. Sodium No 1,000 mL, Memori a Chloride -04 Rate: 125 l 0.9% IV 06:46: ml/hr, Jason 1,000 mL 00 Infuse over: 8 hr, Route: IV, Dosing Weight 127.27 kg, Total Volume: 1,000, Start date: 11/15/17 1:46:00 CDT, Duration: 30 day, Stop date: 12/15/17 1:45:00 CDT, 2.44, m2 Saline No Notes: Memoria Flush 0.9% 5-04 (Same as: l 06:46: BD Roff 00 Posiflush) Acetaminoph No Notes: Do M emoria en 5-04 not exceed l 06:46: 4 gm/day. Jason 00 (Same as: Tylenol) Acetaminoph No Notes: Erwin benjamin en 325 MG / 5-04 (Same as: l Hydrocodone 06:46: Dighton Kristen nn Bitartrate 00 325/5) Do 5 MG Oral not exceed Tablet 4gm/day of acetaminop hen. Reglan No Notes: Memoria 5-04 (Same as: l 04:27: Reglan) Jason 00 Benadryl No Notes: Memoria 5-04 (Same as: l 04:27: Benadryl) Jason 00 Reglan No Notes: Memoria 5-04 (Same as: l 04:27: Reglan) Jason Benadryl No Notes: Memoria 5-04 (Same as: l 04:27: Benadryl) Roff Magnesium No Notes: Memori a Sulfate - WASTE: F/P l 04:26: - Sink; E Roff 00 - Municipal Trash Bin Sodium No 1,000 mL, Memori a Chloride 5-04 1000 l 0.9% 04:26: ml/hr, Roff (Bolus) IV 00 Infuse Over: 1 hr, Route: IV, 1,000, Drug form: INJ, ONCE, Priority: STAT, Dosing Weight 127.273 kg, Start date: 11/14/17 23:26:00 CDT, Stop date: 11/14/17 23:26:00 CDT Magnesium No Notes: Memori a Sulfate 11-15 WASTE: F/P l 04:26: - Sink; E - Municipal Trash Bin Sodium No 1,000 mL, Memori a Chloride -04 1000 l 0.9% 04:26: ml/hr, Jason (Bolus) IV 00 Infuse Over: 1 hr, Route: IV, 1,000, Drug form: INJ, ONCE, Priority: STAT, Dosing Weight 127.273 kg, Start date: 11/14/17 23:26:00 CDT, Stop date: 11/14/17 23:26:00 CDT Zosyn 2017- No 4.5 gm, Memoria 11-15 Route: l 04:10: IVPB, Jason 00 ONCE, Dosing Weight 127.273, kg, Priority: STAT, Start date: 11/14/17 23:10:00 CDT, Stop date: 11/14/17 23:10:00 CDT, ABX Indication : Bacteremia Vancomycin No 2000 mg: Me moria - infuse l 04:10: over 2.5 Roff 00 hours For adult patients only: Round to nearest 250 mg per Medical Staff approval MEDICATION WASTE Product Size: 1000 mg Product Wasted: ___ mg Zosyn 2017- No 4.5 gm, Memoria 11-15 Route: l 04:10: IVPB, Roff 00 ONCE, Dosing Weight 127.273, kg, Priority: STAT, Start date: 11/14/17 23:10:00 CDT, Stop date: 11/14/17 23:10:00 CDT, ABX Indication : Bacteremia Vancomycin No 2000 mg: Me moria 5-04 infuse l 04:10: over 2.5 Jason 00 hours For adult patients only: Round to nearest 250 mg per Medical Staff approval MEDICATION WASTE Product Size: 1000 mg Product Wasted: ___ mg normal No 1,000 mL, Memori a saline 0.9% 11-15 Rate: 75 l IV 1,000 mL 03:39: ml/hr, Herm carly 00 Infuse over: 13.3 hr, Route: IV, Dosing Weight 127.273 kg, Total Volume: 1,000, Start date: 11/14/17 22:39:00 CDT, Duration: 30 day, Stop date: 12/14/17 22:38:00 CDT, 2.36, m2 normal No 1,000 mL, Memori a saline 0.9% 11-15 Rate: 75 l IV 1,000 mL 03:39: ml/hr, Herm carly Infuse over: 13.3 hr, Route: IV, Dosing Weight 127.273 kg, Total Volume: 1,000, Start date: 11/14/17 22:39:00 CDT, Duration: 30 day, Stop date: 12/14/17 22:38:00 CDT, 2.36, m2 Acetaminoph No Notes: Max Memoria en - acetaminop l 02:56: hen 4000 Roff 00 mg/day (4 gm/day). (Same as: Tylenol Extra Strength) Acetaminoph No Notes: Max Memoria en - acetaminop l 02:56: hen 4000 Jason 00 mg/day (4 gm/day). (Same as: Tylenol Extra Strength) Rocephin No Notes: Memoria -04 (Same As: l 02:21: Rocephin). Jason 00 MEDICATION WASTE Product Size: 1000 mg Product Wasted: _0__ mg Rocephin No Notes: Memoria 5-04 (Same As: l 02:21: Rocephin). MEDICATION WASTE Product Size: 1000 mg Product Wasted: _0__ mg Morphine 2017-0 No 4 mg, Memoria 5- Route: l 00:05: IVP, ONCE, Dosing Weight 127.273, kg, Priority: STAT, Start date: 11/14/17 19:05:00 CDT, Stop date: 11/14/17 19:05:00 CDT Morphine 2017-0 No 4 mg, Memoria 5 Route: l 00:05: IVP, ONCE, Dosing Weight 127.273, kg, Priority: STAT, Start date: 11/14/17 19:05:00 CDT, Stop date: 11/14/17 19:05:00 CDT Benadryl No Notes: Memoria 5-03 (Same as: l 23:14: Benadryl) Benadryl No Notes: Memoria 5-03 (Same as: l 23:14: Benadryl) Benadryl No Notes: Memoria 5-03 (Same as: l 22:56: Benadryl) Morphine 2017-0 No 4 mg, 1 Memori a 5-03 mL, Route: l 22:56: IVP, Drug form: SOLN, ONCE, Dosing Weight 127.273, kg, Priority: STAT, Start date: 11/14/17 17:56:00 CDT, Stop date: 11/14/17 17:56:00 CDT Benadryl No Notes: Memoria 5-03 (Same as: l 22:56: Benadryl) Morphine 0 No 4 mg, 1 Memori a 5-03 mL, Route: l 22:56: IVP, Drug form: SOLN, ONCE, Dosing Weight 127.273, kg, Priority: STAT, Start date: 11/14/17 17:56:00 CDT, Stop date: 11/14/17 17:56:00 CDT OXYCODONE 2017- Yes Take by Unive rs HCL/ACETAMI 2-20 mouth. ity of NOPHEN 10:03: [place] (PERCOCET 17 Medical ORAL) Branch OXYCODONE 2016-07 Yes Take by Unive rs HCL/ACETAMI 2-20 mouth. ity of NOPHEN 04:03: [place] (PERCOCET 17 Medical ORAL) Branch OXYCODONE 2016-07 Yes Take by Unive rs HCL/ACETAMI 2-20 mouth. ity of NOPHEN 04:03: [place] (PERCOCET 17 Medical ORAL) Branch OXYCODONE 2016-07 Yes Take by Unive rs HCL/ACETAMI 2-20 mouth. ity of NOPHEN 04:03: [place] (PERCOCET 17 Medical ORAL) Branch OXYCODONE 2016-07 Yes Take by Unive rs HCL/ACETAMI 2-20 mouth. ity of NOPHEN 04:03: [place] (PERCOCET 17 Medical ORAL) Branch dicyclomine 2016-07 Yes 20mg Take 1 Univ ers (BENTYL) 20 2-20 tablet by ity of mg tablet 00:00: mouth 4 00 (four) Medical times Branch daily. proMETHazin [...] ity of mg tablet 00:00: mouth 4 00 (four) Medical times Branch daily. proMETHazin [...] (N/V) for up to 12 doses. proMETHazin 2016- Yes 25mg Take 1 Univ [...] (N/V) for up to 12 doses. proMETHazin 2016- Yes 25mg Take 1 Univ ers e 25 mg 1-04 tablet by ity of tablet 00:00: mouth [place] 00 every 6 Medical (six) Branch hours as needed for Nausea and Vomiting (N/V) for up to 12 doses. proMETHazin 2016- Yes 25mg Take 1 Univ ers e 25 mg 1-04 tablet by ity of tablet 00:00: mouth [place] 00 every 6 Medical (six) Branch hours as needed for Nausea and Vomiting (N/V) for up to 12 doses. proMETHazin 2016- Yes 25mg Take 1 Univ ers e 25 mg 1-04 tablet by ity of tablet 00:00: mouth [place] 00 every 6 Medical (six) Branch hours as needed for Nausea and Vomiting (N/V) for up to 12 doses. proMETHazin 2021- No 25mg Take 1 Uni vers e 25 mg 1-04 05-11 tablet by ity of tablet 00:00: 00:00 mouth [place] 00 :00 every 6 Medical (six) Branch hours as needed for Nausea and Vomiting (N/V) for up to 12 doses. Tylenol Tylenol Yes Na Gamble 1 tablet Co mmon with with as needed [facility] Codeine #4 Codeine #4 - C [facility] Macrobid Macrobid Yes Na Gamble 1 capsule Common with food [facility] Pantoprazol Pantoprazol Yes Na Gamble 1 tablet Common e Sodium e Sodium Spirit [facility] Collagenase Collagenase Yes Na Gamble 1 Common applicatio Spirit n to - [facility] affected [facility] Vital Signs Vital Name Observation Time Observation Value Comments Source Systolic blood 2022-02-23 17:14:00 130 mm[Hg] Univer sity [facility] Diastolic blood 2022-02-23 17:14:00 83 [facility] 2022-02-23 17:14:00 100 /min [facility] Body temperature 2022-02-23 17:14:00 36.72 Abi [facility] 2022-02-23 17:14:00 20 /min [facility] [place] [facility] Oxygen saturation in 2022-02-23 17:14:00 96 /min [facility] Arterial blood by [facility] efrain Pulse oximetry Branch Body height 2022-02-15 10:00:00 149.9 cm [facility] [place] [facility] Body weight 2022-02-15 10:00:00 123 kg [facility] [place] [facility] BMI 2022-02-15 10:00:00 54.77 kg/m2 [facility] [place] [facility] Systolic blood 2022-02-20 12:40:00 107 mm[Hg] Univer sity [facility] [place] [facility] Diastolic blood 2022-02-20 12:40:00 64 mm[Hg] Unive rsity [facility] [place] [facility] Heart rate 2022-02-20 12:40:00 99 /min [facility] [place] [facility] Body temperature 2022-02-20 12:40:00 36.83 Abi [facility] [place] [facility] Respiratory rate 2022-02-20 12:40:00 18 /min [facility] [place] [facility] Oxygen saturation in 2022-02-20 12:40:00 95 /min [facility] Arterial blood by [facility] [place] [facility] Pulse oximetry Branch Body height 2022-02-15 10:00:00 149.9 cm [facility] [place] [facility] Body weight 2022-02-15 10:00:00 123 kg [facility] [place] [facility] BMI 2022-02-15 10:00:00 54.77 kg/m2 [facility] [place] [facility] Heart rate 2022-02-10 23:00:00 91 /min [facility] [place] [facility] Oxygen saturation in 2022-02-10 23:00:00 95 /min [facility] Arterial blood by [facility] [place] [facility] Pulse oximetry Branch Systolic blood 2022-02-10 22:02:00 134 mm[Hg] Univer sity [facility] [place] [facility] Diastolic blood 2022-02-10 22:02:00 83 mm[Hg] Unive rsity [facility] [place] [facility] Body temperature 2022-02-10 21:00:00 36.83 Abi [facility] [place] [facility] Respiratory rate 2022-02-10 21:00:00 28 /min [facility] [place] [facility] Body weight 2022-02-10 09:00:00 134.99 kg [facility] [place] [facility] BMI 2022-02-10 09:00:00 60.08 kg/m2 [facility] [place] [facility] Body height 2022-02-07 22:22:00 149.9 cm [facility] [place] [facility] Systolic blood 2022-01-27 03:38:00 126 mm[Hg] Un[facility]ity [facility] [place] [facility] Diastolic blood 2022-01-27 03:38:00 90 mm[Hg] Unive rsity [facility] [place] [facility] Heart rate 2022-01-27 03:38:00 97 /min [facility] [place] [facility] Respiratory rate 2022-01-27 03:38:00 18 /min [facility] [place] [facility] Oxygen saturation in 2022-01-27 03:38:00 97 /min [facility] blood by [place] [facility] efrain Pulse oximetry Branch Body temperature 2022-01-26 22:09:00 36.94 Abi [facility] [place] [facility] Body height 2022-01-26 22:09:00 149.9 cm [facility] [place] [facility] Body weight 2022-01-26 22:09:00 127.007 kg [facility] [place] [facility] BMI 2022-01-26 22:09:00 56.55 kg/m2 [facility] [place] [facility] Systolic blood 2022-01-17 11:00:00 143 mm[Hg] Univer sity [facility] [place] [facility] Diastolic blood 2022-01-17 11:00:00 91 mm[Hg] Unive rsity [facility] [place] [facility] Heart rate 2022-01-17 11:00:00 100 /min [facility] [place] [facility] Respiratory rate 2022-01-17 11:00:00 16 /min [facility] [place] [facility] Oxygen saturation in 2022-01-17 11:00:00 96 /min [facility] blood by [place] [facility] efrain Pulse oximetry Branch Body temperature 2022-01-17 09:55:00 36.89 Abi [facility] [place] [facility] Body height 2022-01-17 09:55:00 149.9 cm [facility] [place] [facility] Body weight 2022-01-17 09:55:00 127.007 kg [facility] [place] [facility] BMI 2022-01-17 09:55:00 56.55 kg/m2 [facility] [place] [facility] Systolic blood 2022-01-13 00:43:00 132 mm[Hg] Univer sity [facility] [place] [facility] Diastolic blood 2022-01-13 00:43:00 88 mm[Hg] Unive rsity [facility] [place] [facility] Heart rate 2022-01-13 00:43:00 107 /min [facility] [place] [facility] Body temperature 2022-01-13 00:43:00 36.33 Abi [facility] [place] [facility] Respiratory rate 2022-01-13 00:43:00 18 /min [facility] [place] [facility] Oxygen saturation in 2022-01-13 00:43:00 95 /min [facility] Arterial blood by [facility] efrain Pulse oximetry Branch Body height 2022-01-10 11:31:00 149.9 cm [facility] [place] [facility] Body weight 2022-01-10 11:31:00 127.007 kg [facility] [place] [facility] BMI 2022-01-10 11:31:00 56.55 kg/m2 [facility] [place] [facility] Body temperature 2022-01-06 16:10:00 36.22 Abi [facility] [place] [facility] Respiratory rate 2022-01-06 16:10:00 16 /min [facility] [place] [facility] Oxygen saturation in 2022-01-06 16:10:00 96 /min [facility] Arterial blood by [facility] [place] [facility] Pulse oximetry Branch Systolic blood 2022-01-06 16:10:00 127 mm[Hg] Univer sity [facility] [place] [facility] Diastolic blood 2022-01-06 16:10:00 84 mm[Hg] Unive rsity [facility] [place] [facility] Heart rate 2022-01-06 16:10:00 98 /min [facility] [place] [facility] Body weight 2022-01-06 08:54:00 133.494 kg [facility] [place] [facility] BMI 2022-01-06 08:54:00 50.52 kg/m2 [facility] [place] [facility] Body height 2022-01-05 03:01:00 162.6 cm [facility] [place] [facility] Systolic blood 2021-12-22 17:03:00 132 mm[Hg] Univer sity [facility] [place] [facility] Diastolic blood 2021-12-22 17:03:00 90 mm[Hg] Unive rsity [facility] [place] [facility] Heart rate 2021-12-22 17:03:00 78 /min [facility] [place] [facility] Body temperature 2021-12-22 17:03:00 35.83 Abi [facility] [place] [facility] Respiratory rate 2021-12-22 17:03:00 14 /min [facility] [place] [facility] Oxygen saturation in 2021-12-22 17:03:00 93 /min [facility] Arterial blood by [facility] efrain Pulse oximetry Branch Body weight 2021-12-22 09:00:00 140.933 kg [facility] [place] [facility] BMI 2021-12-22 09:00:00 62.75 kg/m2 [facility] [place] [facility] Body height 2021-12-21 12:47:00 149.9 cm [facility] [place] [facility] Systolic blood 2021-12-18 20:40:00 125 mm[Hg] Univer sity [facility] [place] [facility] Diastolic blood 2021-12-18 20:40:00 75 mm[Hg] Unive rsity [facility] [place] [facility] Heart rate 2021-12-18 20:40:00 99 /min [facility] [place] [facility] Body temperature 2021-12-18 20:40:00 36.67 Abi [facility] [place] [facility] Respiratory rate 2021-12-18 20:40:00 20 /min [facility] [place] [facility] Oxygen saturation in 2021-12-18 20:40:00 93 /min [facility] blood by [place] [facility]rain Pulse oximetry Branch Body weight 2021-12-16 22:13:00 137.485 kg [facility] [place] [facility] BMI 2021-12-16 22:13:00 61.22 kg/m2 [facility] [place] [facility] Body height 2021-12-15 09:10:00 149.9 cm [facility] [place] [facility] Systolic blood 2021-11-28 15:49:00 111 mm[Hg] Univer sity [facility] [place] [facility] Diastolic blood 2021-11-28 15:49:00 76 mm[Hg] Unive rsity [facility] [place] [facility] Heart rate 2021-11-28 15:49:00 109 /min [facility] [place] [facility] Body temperature 2021-11-28 15:49:00 36.06 Abi [facility] [place] [facility] Respiratory rate 2021-11-28 15:49:00 18 /min [facility] [place] [facility] Oxygen saturation in 2021-11-28 15:49:00 92 /min [facility]ial blood by [facility] [place] [facility] Pulse oximetry Branch Body weight 2021-11-27 10:47:00 139.481 kg [facility] [place] [facility] BMI 2021-11-27 10:47:00 62.11 kg/m2 [facility] [place] [facility] Body height 2021-11-22 06:57:00 149.9 cm [facility] [place] [facility] Systolic blood 2021-10-16 06:00:00 144 mm[Hg] Univer sity [facility] [place] [facility] Diastolic blood 2021-10-16 06:00:00 93 mm[Hg] Unive rsity [facility] [place] [facility] Heart rate 2021-10-16 06:00:00 92 /min [facility] [place] [facility] Respiratory rate 2021-10-16 06:00:00 22 /min [facility] [place] [facility] Oxygen saturation in 2021-10-16 04:00:00 94 /min [facility]ial blood by [facility] [place] [facility] Pulse oximetry Branch Body temperature 2021-10-16 03:45:00 37.06 Abi [facility] [place] [facility] Body height 2021-10-16 03:45:00 149.9 cm [facility] [place] [facility] Body weight 2021-10-16 03:45:00 127.461 kg [facility] [place] [facility] BMI 2021-10-16 03:45:00 56.76 kg/m2 [facility] [place] [facility] Systolic blood 2021-09-29 03:18:00 113 mm[Hg] Univer sity [facility] [place] [facility] Diastolic blood 2021-09-29 03:18:00 85 mm[Hg] Unive rsity [facility] [place] [facility] Heart rate 2021-09-29 03:18:00 96 /min [facility] [place] [facility] Respiratory rate 2021-09-29 03:18:00 18 /min [facility] [place] [facility] Oxygen saturation in 2021-09-29 03:18:00 93 /min [facility] Arterial blood by [facility] [place] [facility] Pulse oximetry Branch Body temperature 2021-09-29 01:01:16 36.89 Abi [facility] [place] [facility] Body weight 2021-09-28 23:13:00 127.461 kg [facility] [place] [facility] BMI 2021-09-28 23:13:00 56.76 kg/m2 [facility] [place] [facility] Systolic blood 2021-08-08 21:53:00 142 mm[Hg] Univer sity [facility] [place] [facility] Diastolic blood 2021-08-08 21:53:00 88 mm[Hg] Unive rsity [facility] [place] [facility] Heart rate 2021-08-08 21:53:00 96 /min [facility] [place] [facility] Body temperature 2021-08-08 21:53:00 36.06 Abi [facility] [place] [facility] Respiratory rate 2021-08-08 21:53:00 18 /min [facility] [place] [facility] Oxygen saturation in 2021-08-08 21:53:00 96 /min [facility] Arterial blood by [facility] [place] [facility] Pulse oximetry Branch Body weight 2021-08-08 09:48:00 138.801 kg [facility] [place] [facility] BMI 2021-08-08 09:48:00 61.80 kg/m2 [facility] [place] [facility] Body height 2021-08-03 10:27:00 149.9 cm [facility] [place] [facility] Systolic blood 2021-08-01 03:50:00 142 mm[Hg] Univer sity [facility] [place] [facility] Diastolic blood 2021-08-01 03:50:00 95 mm[Hg] Unive rsity [facility] [place] [facility] Heart rate 2021-08-01 03:50:00 93 /min [facility] [place] [facility] Respiratory rate 2021-08-01 03:50:00 17 /min [facility] [place] [facility] Oxygen saturation in 2021-08-01 03:50:00 98 /min [facility] Arterial blood by [facility] [place] [facility] Pulse oximetry Branch Body temperature 2021-07-31 20:39:00 36.5 Abi [facility] [place] [facility] Body weight 2021-07-31 20:39:00 136.079 kg [facility] [place] [facility] BMI 2021-07-31 20:39:00 60.59 kg/m2 [...] 96 /min [facility] Ar[facility]ial blood by [facility] [place] [facility] Pulse oximetry Branch Body temperature 2021-07-29 20:52:00 36.67 Abi [facility] [place] [facility] Body weight 2021-07-29 20:52:00 136.079 kg [facility] [place] [facility] BMI 2021-07-29 20:52:00 60.59 kg/m2 [facility] [place] [facility] Systolic blood 2021-06-07 23:30:00 175 mm[Hg] Univer sity [facility] [place] [facility] Diastolic blood 2021-06-07 23:30:00 107 mm[Hg] Unive rsity [facility] [place] [facility] Heart rate 2021-06-07 23:30:00 81 /min [facility] [place] [facility] Respiratory rate 2021-06-07 23:30:00 21 /min [facility] [place] [facility] Oxygen saturation in 2021-06-07 23:30:00 97 /min [facility] Arterial blood by [facility] [place] [facility] Pulse oximetry Branch Body weight 2021-06-07 21:55:00 136.079 kg [facility] [place] [facility] BMI 2021-06-07 21:55:00 60.59 kg/m2 [facility] [place] [facility] Body temperature 2021-06-07 21:55:00 37.44 Abi [facility] [place] [facility] Systolic blood 2020-11-21 01:30:00 163 mm[Hg] Univer [facility]ity [facility] [place] [facility] Diastolic blood 2020-11-21 01:30:00 106 mm[Hg] Unive rsity [facility] [place] [facility] Heart rate 2020-11-21 01:30:00 97 /min [facility] [place] [facility] Respiratory rate 2020-11-21 01:30:00 21 /min [facility] [place] [facility] Oxygen saturation in 2020-11-21 01:30:00 97 /min [facility] blood by [place] [facility] Pulse oximetry Branch Body temperature 2020-11-20 23:27:00 36.83 Abi [facility] [place] [facility] Body height 2020-11-20 23:27:00 149.9 cm [facility] [place] [facility] Body weight 2020-11-20 23:27:00 136.079 kg [facility] [place] [facility] BMI 2020-11-20 23:27:00 60.59 kg/m2 [facility] [place] [facility] Systolic blood 2020-11-21 01:30:00 163 mm[Hg] Univer [facility]ity [facility] [place] [facility] Diastolic blood 2020-11-21 01:30:00 106 mm[Hg] Unive rsity [facility] [place] [facility] Heart rate 2020-11-21 01:30:00 97 /min [facility] [place] [facility] Respiratory rate 2020-11-21 01:30:00 21 /min [facility] [place] [facility] Oxygen saturation in 2020-11-21 01:30:00 97 /min [facility] blood by [facility] efrian Pulse oximetry Branch Body temperature 2020-11-20 23:27:00 36.83 Abi [facility] [place] [facility] Body height 2020-11-20 23:27:00 149.9 cm [facility] [place] [facility] Body weight 2020-11-20 23:27:00 136.079 kg [facility] [place] [facility] BMI 2020-11-20 23:27:00 60.59 kg/m2 [facility] [place] [facility] Systolic blood 2022-02-19 16:49:00 127 mm[Hg] Univer [facility] [place] [facility] Diastolic blood 2022-02-19 16:49:00 86 mm[Hg] Unive rsity [facility] [place] [facility] Heart rate 2022-02-19 16:49:00 101 /min [facility] [place] [facility] Body temperature 2022-02-19 16:49:00 36.83 Abi [facility] [place] [facility] Respiratory rate 2022-02-19 16:49:00 20 /min [facility] [place] [facility] Oxygen saturation in 2022-02-19 16:49:00 95 /min [facility] Arterial blood by [facility] [place] [facility] Pulse oximetry Branch Body height 2022-02-15 10:00:00 149.9 cm [facility] Body weight 2022-02-15 10:00:00 123 kg [facility] BMI 2022-02-15 10:00:00 54.77 kg/m2 [facility] Temperature Oral (F) 2021-10-25 21:12:00 98.0 [facility] Heart Rate 2021-10-25 21:12:00 [facility] Respitory Rate 2021-10-25 21:12:00 [facility] Systolic (mm Hg) 2021-10-25 21:12:00 Erwin rial Jason Diastolic (mm Hg) 2021-10-25 21:12:00 [facility] Heart Rate 2021-10-25 17:09:26 [facility] Respitory Rate 2021-10-25 17:09:26 [facility] Temperature Oral (F) 2021-10-25 17:09:08 98.2 F [facility] Systolic (mm Hg) 2021-10-25 17:08:50 Erwin rial Jason Diastolic (mm Hg) 2021-10-25 17:08:50 [facility] Heart Rate 2021-10-25 17:08:50 [facility] Respitory Rate 2021-10-25 13:07:22 [facility] Temperature Oral (F) 2021-10-25 13:07:04 97.7 F [facility] Systolic (mm Hg) 2021-10-25 13:06:57 Erwin rial Jason Diastolic (mm Hg) 2021-10-25 13:06:57 Mem orial Jason Heart Rate 2021-10-23 10:00:21 [facility] Respitory Rate 2021-10-23 10:00:21 [facility] Temperature Oral (F) 2021-10-23 09:59:28 97.5 F [facility] Systolic (mm Hg) 2021-10-23 09:58:18 Erwin rial Roff Diastolic (mm Hg) 2021-10-23 09:58:18 Mem orial Jason Heart Rate 2021-10-23 09:58:18 [facility] Heart Rate 2021-10-23 04:58:41 [facility] Respitory Rate 2021-10-23 04:58:41 [facility] Temperature Oral (F) 2021-10-23 04:58:34 97.2 F [facility] Systolic (mm Hg) 2021-10-23 04:57:48 Erwin [facility] Roff Diastolic (mm Hg) 2021-10-23 04:57:48 [facility] Respitory Rate 2021-10-23 00:54:28 [facility] Systolic (mm Hg) 2021-10-23 00:54:19 Erwin rial Jason Diastolic (mm Hg) 2021-10-23 00:54:19 [facility] Temperature Oral (F) 2021-10-23 00:53:24 98.1 F [facility] Height 2021-10-20 23:39:00 149.86 cm [facility] Weight 2021-10-20 23:39:00 [facility] BMI Calculated 2021-10-20 23:39:00 [facility] Systolic (mm Hg) 2021-10-10 14:00:00 Erwin [facility] Roff Diastolic (mm Hg) 2021-10-10 14:00:00 [facility] Respitory Rate 2021-10-10 14:00:00 Memori al Jason Respitory Rate 2021-10-10 13:00:00 [facility] Systolic (mm Hg) 2021-10-10 13:00:00 Erwin rial Jason Diastolic (mm Hg) 2021-10-10 13:00:00 [facility] Respitory Rate 2021-10-10 12:00:00 [facility] Jason Systolic (mm Hg) 2021-10-10 12:00:00 Erwin rial Jason Diastolic (mm Hg) 2021-10-10 12:00:00 [facility] Respitory Rate 2021-10-09 05:00:00 [facility] Systolic (mm Hg) 2021-10-09 05:00:00 Erwin rial Roff Diastolic (mm Hg) 2021-10-09 05:00:00 [facility] Respitory Rate 2021-10-09 04:00:00 Memori [facility] Jason Systolic (mm Hg) 2021-10-09 04:00:00 Erwin rial Roff Diastolic (mm Hg) 2021-10-09 04:00:00 Mem orial Jason Respitory Rate 2021-10-09 03:00:00 [facility] Jason Systolic (mm Hg) 2021-10-09 03:00:00 Erwin [facility] Roff Diastolic (mm Hg) 2021-10-09 03:00:00 Mem o[facility] Jason Heart Rate 2021-10-06 15:55:41 [facility] Temperature Oral (F) 2021-10-06 15:55:32 98.3 F [facility] Heart Rate 2021-10-06 15:54:37 [facility] Heart Rate 2021-10-06 12:20:12 [facility] Temperature Oral (F) 2021-10-06 12:19:51 97.7 F [facility] Temperature Oral (F) 2021-10-06 09:20:54 97.9 F [facility] Height 2021-10-06 06:18:00 149.86 cm [facility] Weight 2021-10-06 06:18:00 [facility] BMI Calculated 2021-10-06 06:18:00 [facility] Respitory Rate 2018-05-22 17:30:00 [facility] Systolic (mm Hg) 2018-05-22 17:30:00 Erwin rial Roff Diastolic (mm Hg) 2018-05-22 17:30:00 [facility] Temperature Oral (F) 2018-05-22 17:30:00 98.4 F [facility] Temperature Oral (F) 2018-05-22 16:23:00 98.6 F [facility] Systolic (mm Hg) 2018-05-22 16:23:00 Erwin rial Jason Diastolic (mm Hg) 2018-05-22 16:23:00 [facility] Respitory Rate 2018-05-22 14:00:00 [facility] Systolic (mm Hg) 2018-05-22 14:00:00 Erwin rial Jason Diastolic (mm Hg) 2018-05-22 14:00:00 Mem o[facility] Jason Respitory Rate 2018-05-22 13:30:00 Memori [facility] BMI Calculated 2018-05-22 10:16:00 [facility] Height 2018-05-22 10:16:00 149.86 cm [facility] Weight 2018-05-22 10:16:00 [facility] Heart Rate 2018-05-22 10:16:00 [facility] Temperature Oral (F) 2018-05-22 10:16:00 97.9 F [facility] Temperature Oral (F) 2017-11-19 13:40:00 97.2 F [facility] Systolic (mm Hg) 2017-11-19 13:40:00 Erwin rial Jason Diastolic (mm Hg) 2017-11-19 13:40:00 [facility] Heart Rate 2017-11-19 13:40:00 [facility] Respitory Rate 2017-11-19 13:40:00 [facility] Heart Rate 2017-11-19 05:24:00 [facility] Systolic (mm Hg) 2017-11-19 05:24:00 Erwin rial Jason Diastolic (mm Hg) 2017-11-19 05:24:00 [facility] Respitory Rate 2017-11-19 05:24:00 [facility] Temperature Oral (F) 2017-11-19 05:24:00 98.1 F [facility] Respitory Rate 2017-11-19 01:15:00 [facility] Systolic (mm Hg) 2017-11-19 01:15:00 Erwin rial Jason Diastolic (mm Hg) 2017-11-19 01:15:00 [facility] Heart Rate 2017-11-19 01:15:00 [facility] Temperature Oral (F) 2017-11-19 01:15:00 98.1 F [facility] Weight 2017-11-18 14:00:00 [facility] Weight 2017-11-17 14:00:00 [facility] Weight 2017-11-15 14:00:00 [facility] BMI Calculated 2017-11-15 05:43:00 [facility] Height 2017-11-15 05:43:00 162.56 cm [facility] Height 2017-11-14 22:41:00 149.86 cm [facility] BMI Calculated 2017-11-14 22:41:00 [facility] Procedures Procedure Date / Time Performing Clinician Source Performed POCT GLUCOSE (AUTOMATED) 2022-02-23 18:34:00 Ricardo Conroy [facility] POCT GLUCOSE (AUTOMATED) 2022-02-23 14:37:00 Ricardo Conroy [facility] BASIC METABOLIC PANEL (NA, 2022-02-23 13:22:00 JacksonConcetta [facility] K, CL, CO2, GLUCOSE, BUN, Medica l Branch CREATININE, CA) CBC WITH DIFF 2022-02-23 13:22:00 Kingsley [facility] POCT GLUCOSE (AUTOMATED) 2022-02-23 10:56:00 Ricardo Conroy [facility] POCT GLUCOSE (AUTOMATED) 2022-02-23 05:46:00 Ricardo Conroy [facility] POCT GLUCOSE (AUTOMATED) 2022-02-23 02:17:00 Ricardo Conroy [facility] POCT GLUCOSE (AUTOMATED) 2022-02-22 23:13:00 Ricardo Conroy [facility] POCT GLUCOSE (AUTOMATED) 2022-02-22 18:22:00 Ricardo Conroy [facility] POCT GLUCOSE (AUTOMATED) 2022-02-22 14:56:00 Ricardo Conroy [facility] BASIC METABOLIC PANEL (NA, 2022-02-22 10:03:00 David Wynn [facility] K, CL, CO2, GLUCOSE, BUN, Medica l Branch CREATININE, CA) CBC WITH DIFF 2022-02-22 10:03:00 [facility]) 2022-02-22 02:18:00 Ricardo Conroy [facility] POCT GLUCOSE (AUTOMATED) 2022-02-21 22:26:00 Ricardo Conroy [facility] POCT GLUCOSE (AUTOMATED) 2022-02-21 18:57:00 Ricardo Conroy [facility] POCT GLUCOSE (AUTOMATED) 2022-02-21 18:57:00 [facility] VEN[facility] ARMS 2022-02-21 17:28:45 Kingsley [facility] BILATERAL - BY VASCULAR [facility] LAB US DUPLEX VENOUS ARMS 2022-02-21 17:28:45 Kingsley [facility]ix [facility] BILATERAL - BY VASCULAR [facility] LAB POCT GLUCOSE (AUTOMATED) 2022-02-21 15:20:00 [facility]UCOSE (AUTOMATED) 2022-02-21 15:20:00 [facility]ES[facility]UM 2022-02-21 10:19:00 Ayo [facility] BASIC METABOLIC PANEL (NA, 2022-02-21 10:19:00 Ayo [facility] K, CL, CO2, GLUCOSE, BUN, [facility] [place] CREATININE, [place]) CBC WITH DIFF 2022-02-21 10:19:00 Ayo [facility] MAGNESIUM 2022-02-21 10:19:00 Ayo [facility] BASIC METABOLIC PANEL (NA, 2022-02-21 10:19:00 Ayo [facility] K, CL, CO2, GLUCOSE, BUN, [facility] CREATININE, CA) CBC WITH DIFF 2022-02-21 10:19:00 Ayo [facility] POCT GLUCOSE (AUTOMATED) 2022-02-21 02:44:00 Ricardo Conroy U [facility] POCT GLUCOSE (AUTOMATED) 2022-02-21 02:44:00 [facility] PO[facility] GLUCOSE (AUTOMATED) 2022-02-20 22:02:00 [facility] PO[facility] GLUCOSE (AUTOMATED) 2022-02-20 22:02:00 Ricardo Conroy [facility] FUNGUS (ROUTINE) CULTURE 2022-02-20 17:03:00 Chalino Paul [facility] A Medical Branch TISSUE 2022-02-20 17:03:00 Sarah Beth Paul [facility] CULTURE(AEROBIC/ANAEROBIC) A Medic al Branch FUNGUS (ROUTINE) CULTURE 2022-02-20 17:03:00 Chalino Paul [facility] A Medical Branch TISSUE 2022-02-20 17:03:00 Kal Pauluwatosin [facility] CULTURE(AEROBIC/ANAEROBIC) A Medic al Branch FUNGUS (ROUTINE) CULTURE 2022-02-20 17:00:00 Chalino Paul [facility] A Medical Branch TISSUE 2022-02-20 17:00:00 OgunKal morrisonSarah Beth [facility] CULTURE(AEROBIC/ANAEROBIC) A Medic al Branch FUNGUS (ROUTINE) CULTURE 2022-02-20 17:00:00 Chalino Paul [facility] A Medical Branch TISSUE 2022-02-20 17:00:00 Kal Pauluwatosin [facility] CULTURE(AEROBIC/ANAEROBIC) A Medic al Branch FUNGUS (ROUTINE) CULTURE 2022-02-20 16:59:00 Chalino Paul [facility] A Medical Branch TISSUE 2022-02-20 16:59:00 Kal Pauluwatosin [facility] CULTURE(AEROBIC/ANAEROBIC) A Medic al Branch FUNGUS (ROUTINE) CULTURE 2022-02-20 16:59:00 Chalino Paul [facility] A Medical Branch TISSUE 2022-02-20 16:59:00 Kal Pauluwatosin [facility] CULTURE(AEROBIC/ANAEROBIC) A Medic al Branch FOOT DEBRIDEMENT 2022-02-20 16:11:00 Kal Pauluwatosin [facility] A Medical Branch FOOT DEBRIDEMENT 2022-02-20 16:11:00 OgKal meiuwatosin [facility] A Medical Branch COVID-19 (ID NOW RAPID 2022-02-20 14:36:00 David Wynn [facility] TESTING) Medical Branch LAB ONLY COVID 2022-02-20 14:36:00 David Wynn [facility] INTERPRETATION Medical Branch COVID-19 (ID NOW RAPID 2022-02-20 14:36:00 David Wynn [facility] TESTING) Medical Branch LAB ONLY COVID 2022-02-20 14:36:00 David Wynn [facility] POCT GLUCOSE (AUTOMATED) 2022-02-20 14:07:00 Aurora Martinez [facility] POCT GLUCOSE (AUTOMATED) 2022-02-20 14:07:00 Aurora Martinez Uni [facility] HB ECG ROUTINE & RHYTHM 2022-02-20 13:27:17 [facility] 2022-02-20 10:55:00 Ayo, [facility] CBC WITH DIFF 2022-02-20 10:55:00 Ayo, [facility] MAGNESIUM 2022-02-20 10:40:00 Ayo [facility] BASIC METABOLIC PANEL (NA, 2022-02-20 10:40:00 Ayo, [facility] K, CL, CO2, GLUCOSE, BUN, [facility] CREATININE, CA) COVID-19 (ID NOW RAPID 2022-02-20 10:40:00 Rafal [facility] TESTING) Medical Branch LAB ONLY COVID 2022-02-20 10:40:00 [facility] MAGNESIUM 2022-02-20 10:40:00 Ayo [facility] BASIC METABOLIC PANEL (NA, 2022-02-20 10:40:00 Ayo [facility] K, CL, CO2, GLUCOSE, BUN, [place] [facility] CREATININE, CA) COVID-19 (ID NOW RAPID 2022-02-20 10:40:00 [facility] TESTING) Medical Branch LAB ONLY COVID 2022-02-20 10:40:00 [facility] POCT GLUCOSE (AUTOMATED) 2022-02-20 02:29:00 Aurora Martinez Uni [facility] POCT GLUCOSE (AUTOMATED) 2022-02-20 02:29:00 Aurora Martinez Uni [facility] POCT GLUCOSE (AUTOMATED) 2022-02-19 23:39:00 Aurora Martinez Uni versity [facility] POCT GLUCOSE (AUTOMATED) 2022-02-19 23:39:00 Aurora Martinez Uni [facility] POCT GLUCOSE (AUTOMATED) 2022-02-19 17:10:00 Aurora Martinez Uni [facility] POCT GLUCOSE (AUTOMATED) 2022-02-19 17:10:00 Aurora Martinez [facility] POCT GLUCOSE (AUTOMATED) 2022-02-19 17:10:00 Aurora Martinez Uni [facility] POCT GLUCOSE (AUTOMATED) 2022-02-19 15:54:00 Aurora Martinez Uni [facility] POCT GLUCOSE (AUTOMATED) 2022-02-19 15:54:00 Aurora Martinez Uni [facility] POCT GLUCOSE (AUTOMATED) 2022-02-19 15:54:00 [facility] 2022-02-19 08:36:00 Indira Perry [facility] BASIC METABOLIC PANEL (NA, 2022-02-19 08:36:00 Naranjo, Nai U niversity [facility] K, CL, CO2, GLUCOSE, BUN, Medica l Branch CREATININE, CA) CBC WITH DIFF 2022-02-19 08:36:00 Jose A [facility] MAGNESIUM 2022-02-19 08:36:00 Jose A [facility] MAGNESIUM 2022-02-19 08:36:00 Jose A [facility] BASIC METABOLIC PANEL (NA, 2022-02-19 08:36:00 Jose A[facility], CL, CO2, GLUCOSE, BUN, Medica l Branch CREATININE, CA) SEDIMENTATION RATE 2022-02-19 08:36:00 Indira Perry [facility] CBC WITH DIFF 2022-02-19 08:36:00 Nai Naranjo [facility] MAGNESIUM 2022-02-19 08:36:00 Jose A [facility] BASIC METABOLIC PANEL (NA, 2022-02-19 08:36:00 [facility] [place] [facility], CL, CO2, GLUCOSE, BUN, Medica l Branch CREATININE, CA) SEDIMENTATION RATE 2022-02-19 08:36:00 Indira Perry [facility] CBC WITH DIFF 2022-02-19 08:36:00 Nai Naranjo o f [facility] POCT GLUCOSE (AUTOMATED) 2022-02-19 00:57:00 Fiorella Mcdonaldy B Un iversity of [facility] POCT GLUCOSE (AUTOMATED) 2022-02-19 00:57:00 [place] Vic B Un ivers[facility] POCT GLUCOSE (AUTOMATED) 2022-02-19 00:57:00 Harry Ivc B [facility] POCT GLUCOSE (AUTOMATED) 2022-02-18 21:26:00 [place] Vic B [facility] POCT GLUCOSE (AUTOMATED) 2022-02-18 21:26:00 Harry Vic B [facility] POCT GLUCOSE (AUTOMATED) 2022-02-18 21:26:00 [place] Vic B [facility] POCT GLUCOSE (AUTOMATED) 2022-02-18 16:47:00 [place] Vic B [facility] POCT GLUCOSE (AUTOMATED) 2022-02-18 16:47:00 FallsFiorellay B Un iversity of [facility] POCT GLUCOSE (AUTOMATED) 2022-02-18 16:47:00 Harry, Vic B Un [facility] BASIC METABOLIC PANEL (NA, 2022-02-18 14:21:00 Nai [facility] [place] [facility], CL, CO2, GLUCOSE, BUN, Medica l Branch CREATININE, CA) C-REACTIVE PROTEIN 2022-02-18 14:21:00 Vicky [facility] C-REACTIVE PROTEIN 2022-02-18 14:21:00 Vicky [facility] BASIC METABOLIC PANEL (NA, 2022-02-18 14:21:00 [facility], CL, CO2, GLUCOSE, BUN, Medica l Branch CREATININE, CA) C-REACTIVE PROTEIN 2022-02-18 14:21:00 Indira Perry [facility] BASIC METABOLIC PANEL (NA, 2022-02-18 14:21:00 Naranjo, [facility], CL, CO2, GLUCOSE, BUN, Medica l Branch CREATININE, CA) POCT GLUCOSE (AUTOMATED) 2022-02-18 12:34:00 Vic Mcdonald B Un [facility]vers[facility] POCT GLUCOSE (AUTOMATED) 2022-02-18 12:34:00 FallsFiorellay B Un iversity of [facility] POCT GLUCOSE (AUTOMATED) 2022-02-18 12:34:00 Fiorella Mcdonaldy B Un ivers[facility] POCT GLUCOSE (AUTOMATED) 2022-02-18 01:28:00 Vic Mcdonald B [facility] POCT GLUCOSE (AUTOMATED) 2022-02-18 01:28:00 Fiorella Mcdonaldy B [facility] POCT GLUCOSE (AUTOMATED) 2022-02-18 01:28:00 HarryFiorellay B [facility] [place] [facility] POCT GLUCOSE (AUTOMATED) 2022-02-17 21:13:00 [place] Vic B [facility] POCT GLUCOSE (AUTOMATED) 2022-02-17 21:13:00 FallsFiorellay B [facility] POCT GLUCOSE (AUTOMATED) 2022-02-17 21:13:00 Harry Vic B [facility] POCT GLUCOSE (AUTOMATED) 2022-02-17 16:39:00 [place] Vic B [facility] POCT GLUCOSE (AUTOMATED) 2022-02-17 16:39:00 Harry Vic B Un iversity of [facility] POCT GLUCOSE (AUTOMATED) 2022-02-17 16:39:00 Harry Vic B Un iversity of [facility] POCT GLUCOSE (AUTOMATED) 2022-02-17 13:11:00 Vic Mcdonald Un iversity [facility] POCT GLUCOSE (AUTOMATED) 2022-02-17 13:11:00 Vic Mcdonald [facility] POCT GLUCOSE (AUTOMATED) 2022-02-17 13:11:00 Vic Mcdonald Un [facility] MAGNESIUM 2022-02-17 10:28:00 [facility], [place] [facility] BASIC METABOLIC PANEL (NA, 2022-02-17 10:28:00 Butt, [facility] K, CL, CO2, GLUCOSE, BUN, Medica l Branch CREATININE, CA) MAGNESIUM 2022-02-17 10:28:00 Butt, [place] [facility] BASIC METABOLIC PANEL (NA, 2022-02-17 10:28:00 Butt, [facility] K, CL, CO2, GLUCOSE, BUN, Medica l Branch CREATININE, CA) MAGNESIUM 2022-02-17 10:28:00 Butt, [place] [facility] BASIC METABOLIC PANEL (NA, 2022-02-17 10:28:00 Butt, [facility] K, CL, CO2, GLUCOSE, BUN, Medica l Branch CREATININE, CA) POCT GLUCOSE (AUTOMATED) 2022-02-17 10:01:00 Vic Mcdonald [facility] POCT GLUCOSE (AUTOMATED) 2022-02-17 10:01:00 Vic Mcdonald Un [facility] POCT GLUCOSE (AUTOMATED) 2022-02-17 10:01:00 Vic Mcdonald [facility] POCT GLUCOSE (AUTOMATED) 2022-02-17 06:32:00 Vic Mcdonald [facility] POCT GLUCOSE (AUTOMATED) 2022-02-17 06:32:00 Vic Mcdonald [facility] POCT GLUCOSE (AUTOMATED) 2022-02-17 06:32:00 Vic Mcdonald [facility] BASIC METABOLIC PANEL (NA, 2022-02-17 02:01:00 Butt, [facility] K, CL, CO2, GLUCOSE, BUN, Medica l Branch CREATININE, CA) BASIC METABOLIC PANEL (NA, 2022-02-17 02:01:00 Corbin [facility] K, CL, CO2, GLUCOSE, BUN, Medica l Branch CREATININE, CA) BASIC METABOLIC PANEL (NA, 2022-02-17 02:01:00 Corbin [facility] K, CL, CO2, GLUCOSE, BUN, Medica l Branch CREATININE, CA) POCT GLUCOSE (AUTOMATED) 2022-02-17 01:53:00 Vic Mcdonald [facility] POCT GLUCOSE (AUTOMATED) 2022-02-17 01:53:00 Vic Mcdonald [facility] POCT GLUCOSE (AUTOMATED) 2022-02-17 01:53:00 Vic Mcdonald B [facility] POCT GLUCOSE (AUTOMATED) 2022-02-16 23:02:00 Vic Mcdonald [facility] POCT GLUCOSE (AUTOMATED) 2022-02-16 23:02:00 Vic Mcdonald [facility] POCT GLUCOSE (AUTOMATED) 2022-02-16 23:02:00 Vic Mcdonald [facility] XR FOOT 3+ VW BILATERAL 2022-02-16 21:35:00 [facility] Medical Branch XR FOOT 3+ VW BILATERAL 2022-02-16 21:35:00 [facility] XR FOOT 3+ VW BILATERAL 2022-02-16 21:35:00 [facility] POCT GLUCOSE (AUTOMATED) 2022-02-16 20:45:00 Vic Mcdonald B [facility] POCT GLUCOSE (AUTOMATED) 2022-02-16 20:45:00 Vic Mcdonald B Un iversity of [facility] POCT GLUCOSE (AUTOMATED) 2022-02-16 20:45:00 Vic Mcdonald B [facility] POCT GLUCOSE (AUTOMATED) 2022-02-16 16:41:00 Vic Mcdonald Un [facility] POCT GLUCOSE (AUTOMATED) 2022-02-16 16:41:00 Vic Mcdonald [facility] POCT GLUCOSE (AUTOMATED) 2022-02-16 16:41:00 Vic Mcdonald [facility] BASIC METABOLIC PANEL (NA, 2022-02-16 15:35:00 Vic Mcdonald [facility] K, CL, CO2, GLUCOSE, BUN, Medica l Branch CREATININE, CA) BASIC METABOLIC PANEL (NA, 2022-02-16 15:35:00 Vic Mcdonald [facility] K, CL, CO2, GLUCOSE, BUN, Medica l Branch CREATININE, CA) BASIC METABOLIC PANEL (NA, 2022-02-16 15:35:00 Vic Mcdonald [facility] K, CL, CO2, GLUCOSE, BUN, Medica l Branch CREATININE, CA) BETA HYDROXY-BUTYRATE 2022-02-16 15:34:00 [facility] BETA HYDROXY-BUTYRATE 2022-02-16 15:34:[address] [facility] BETA HYDROXY-BUTYRATE 2022-02-16 15:34:[address] [facility] POCT GLUCOSE (AUTOMATED) 2022-02-16 14:20:00 Vic Mcdonald [facility] POCT GLUCOSE (AUTOMATED) 2022-02-16 14:20:00 Vic Mcdonald [facility] POCT GLUCOSE (AUTOMATED) 2022-02-16 14:20:00 Vic Mcdonald [facility] POCT GLUCOSE (AUTOMATED) 2022-02-16 12:52:00 Vic Mcdonald [facility] POCT GLUCOSE (AUTOMATED) 2022-02-16 12:52:00 Vic Mcdonald [facility] POCT GLUCOSE (AUTOMATED) 2022-02-16 12:52:00 Vic Mcdonald [facility] [place] [facility] POCT GLUCOSE (AUTOMATED) 2022-02-16 09:04:00 Vic Mcdonald [facility] POCT GLUCOSE (AUTOMATED) 2022-02-16 09:04:00 Vic Mcdonald Un iversity [facility] POCT GLUCOSE (AUTOMATED) 2022-02-16 09:04:00 Vic Mcdonald Un iversity [facility] BASIC METABOLIC PANEL (NA, 2022-02-16 06:13:00 Myrna [facility] [place] K, CL, CO2, GLUCOSE, BUN, Medica l Branch CREATININE, CA) GLUTAMIC ACID 2022-02-16 06:13:00 [facility] WITHOUT DIFF 2022-02-16 [facility]:13[facility]:13[facility]16 06:13:00 Myrna Chen [facility] BASIC METABOLIC PANEL (NA, 2022-02-16 06:13:00 Myrna [facility] [place] K, CL, CO2, GLUCOSE, BUN, Medica l Branch CREATININE, CA) CBC WITHOUT DIFF 2022-02-16 06:13[facility] 2022-02-16 06:13:00 Myrna Chen [facility] DECARBOXYLASE [facility] MAGNESIUM 2022-02-16 06:13:00 Myrna Chen [facility] BASIC METABOLIC PANEL (NA, 2022-02-16 06:13:00 Myrna [facility] [place] K, CL, CO2, GLUCOSE, BUN, Medica l Branch CREATININE, CA) CBC WITHOUT DIFF 2022-02-16 06:13:00 [facility] 2022-02-16 06:13:00 Myrna Chen [facility] DECARBOXYLASE AB [facility] POCT GLUCOSE (AUTOMATED) 2022-02-16 05:45:00 Vic Mcdonald Un iversity [facility] POCT GLUCOSE (AUTOMATED) 2022-02-16 05:45:00 Vic Mcdonald Un i[facility] POCT GLUCOSE (AUTOMATED) 2022-02-16 05:45:00 Vic Mcdonald [facility] POCT GLUCOSE (AUTOMATED) 2022-02-16 01:26:00 Vic Mcdonald [facility] POCT GLUCOSE (AUTOMATED) 2022-02-16 01:26:00 Vic Mcdonald [facility] POCT GLUCOSE (AUTOMATED) 2022-02-16 01:26:00 Vic Mcdonald [facility] POCT GLUCOSE (AUTOMATED) 2022-02-15 23:42:00 Vic Mcdonald [facility] POCT GLUCOSE (AUTOMATED) 2022-02-15 23:42:00 Vic Mcdonald [facility] POCT GLUCOSE (AUTOMATED) 2022-02-15 23:42:00 Vic Mcdonald [facility] BASIC METABOLIC PANEL (NA, 2022-02-15 22:51:00 Vic Mcdonald [facility] K, CL, CO2, GLUCOSE, BUN, [facility] CREATININE, [place]) BASIC METABOLIC PANEL (NA, 2022-02-15 22:51:00 Vic Mcdonald [facility] K, CL, CO2, GLUCOSE, BUN, Medica l Branch CREATININE, CA) BASIC METABOLIC PANEL (NA, 2022-02-15 22:51:00 Vic Mcdonald [facility] K, CL, CO2, GLUCOSE, BUN, Medica l Branch CREATININE, CA) POCT GLUCOSE (AUTOMATED) 2022-02-15 22:37:00 Vic Mcdonald [facility] POCT GLUCOSE (AUTOMATED) 2022-02-15 22:37:00 Vic Mcdonald [facility] POCT GLUCOSE (AUTOMATED) 2022-02-15 22:37:00 Vic Mcdonald [facility] POCT GLUCOSE (AUTOMATED) 2022-02-15 21:30:00 Vic Mcdonald [facility] POCT GLUCOSE (AUTOMATED) 2022-02-15 21:30:00 Vic Mcdonald [facility] POCT GLUCOSE (AUTOMATED) 2022-02-15 21:30:00 Vic Mcdonald [facility] POCT GLUCOSE (AUTOMATED) 2022-02-15 20:05:00 Vic Mcdonald [facility] POCT GLUCOSE (AUTOMATED) 2022-02-15 20:05:00 Vic Mcdonald [facility] POCT GLUCOSE (AUTOMATED) 2022-02-15 20:05:00 Vic Mcdonald [facility] HB ECG ROUTINE & RHYTHM 2022-02-15 19:59:13 Lacey Alaniz [facility] HB ECG ROUTINE & RHYTHM 2022-02-15 19:59:13 Lacey Alaniz Jay [facility] HB ECG ROUTINE & RHYTHM 2022-02-15 19:59:13 Lacey Alaniz [facility] POCT GLUCOSE (AUTOMATED) 2022-02-15 19:06:00 Vic Mcdonald [facility] POCT GLUCOSE (AUTOMATED) 2022-02-15 19:06:00 Vic Mcdonald [facility] POCT GLUCOSE (AUTOMATED) 2022-02-15 19:06:00 Vic Mcdonald [facility] BLOOD CULTURE SCREEN 2022-02-15 18:49:00 Nai Naranjo [facility] BLOOD CULTURE SCREEN 2022-02-15 18:49:00 Nai Naranjo [facility] BLOOD CULTURE SCREEN 2022-02-15 18:49:00 Nai Naranjo [facility] BLOOD CULTURE SCREEN 2022-02-15 18:48:00 Nai Naranjo [facility] ity [facility] BLOOD CULTURE SCREEN 2022-02-15 18:48:00 Nai Naranjo [facility] ity [facility] BLOOD CULTURE SCREEN 2022-02-15 18:48:00 [facility] 2022-02-15 18:34:[address] [facility] XR CHEST 1 VW 2022-02-15 18:34:[address] [facility] XR CHEST 1 VW 2022-02-15 18:34:00 Butt, [facility] BASIC METABOLIC PANEL (NA, 2022-02-15 17:49:00 Vic Mcdonald [facility] K, CL, CO2, GLUCOSE, BUN, Medica l Branch CREATININE, CA) TROPONIN I 2022-02-15 17:49:00 Anne [facility] TROPONIN I 2022-02-15 17:49:00 Anne, [facility] BASIC METABOLIC PANEL (NA, 2022-02-15 17:49:00 Vic Mcdonald [facility] K, CL, CO2, GLUCOSE, BUN, Medica l Branch CREATININE, CA) TROPONIN I 2022-02-15 17:49:00 Anne [facility] BASIC METABOLIC PANEL (NA, 2022-02-15 17:49:00 Vic Mcdonald [facility] K, CL, CO2, GLUCOSE, BUN, Medica l Branch CREATININE, CA) POCT GLUCOSE (AUTOMATED) 2022-02-15 17:27:00 Vic Mcdonald [facility] POCT GLUCOSE (AUTOMATED) 2022-02-15 17:27:00 Vic Mcdonald [facility] POCT GLUCOSE (AUTOMATED) 2022-02-15 17:27:00 Fiorella Mcdonaldy B Un iversity [facility] POCT GLUCOSE (AUTOMATED) 2022-02-15 15:53:00 Vic Mcdonald B Un iversity [facility] POCT GLUCOSE (AUTOMATED) 2022-02-15 15:53:00 Vic Mcdonald B Un iversity [facility] POCT GLUCOSE (AUTOMATED) 2022-02-15 15:53:00 Vic Mcdonald B Un iversity [facility] BASIC METABOLIC PANEL (NA, 2022-02-15 15:32:00 Vic Mcdonald [facility] K, CL, CO2, GLUCOSE, BUN, Medica l Branch CREATININE, CA) BASIC METABOLIC PANEL (NA, 2022-02-15 15:32:00 Vic Mcdonald [facility] K, CL, CO2, GLUCOSE, BUN, Medica l Branch CREATININE, CA) BASIC METABOLIC PANEL (NA, 2022-02-15 15:32:00 Vic Mcdonald [facility] K, CL, CO2, GLUCOSE, BUN, Medica l Branch CREATININE, CA) POCT GLUCOSE (AUTOMATED) 2022-02-15 14:56:00 Vic Mcdonald B [facility] POCT GLUCOSE (AUTOMATED) 2022-02-15 14:56:00 Vic Mcdonald [facility] POCT GLUCOSE (AUTOMATED) 2022-02-15 14:56:00 Vic Mcdonald [facility] POCT GLUCOSE (AUTOMATED) 2022-02-15 13:48:00 Vic Mcdonald [facility] POCT GLUCOSE (AUTOMATED) 2022-02-15 13:48:00 Vic Mcdonald B [facility] POCT GLUCOSE (AUTOMATED) 2022-02-15 13:48:00 Vic Mcdonald B [facility] POCT GLUCOSE (AUTOMATED) 2022-02-15 10:42:00 Vic Mcdonald [facility] POCT GLUCOSE (AUTOMATED) 2022-02-15 10:42:00 Vic Mcdonald B [facility] POCT GLUCOSE (AUTOMATED) 2022-02-15 10:42:00 Vic Mcdonald [facility] BASIC METABOLIC PANEL (NA, 2022-02-15 10:14:00 [facility], [facility], GLUCOSE, BUN, Medica l Branch CREATININE, CA) MAGNESIUM 2022-02-15 10:14:00 Nai Naranjo o f [facility] MAGNESIUM 2022-02-15 10:14:00 Jose A [facility] BASIC METABOLIC PANEL (NA, 2022-02-15 10:14:00 Jose A [facility] K, CL, CO2, GLUCOSE, BUN, Medica l Branch CREATININE, CA) MAGNESIUM 2022-02-15 10:14:00 Naranjo, [facility] BASIC METABOLIC PANEL (NA, 2022-02-15 10:14:00 Naranjo, [facility] K, CL, CO2, GLUCOSE, BUN, Medica l Branch CREATININE, CA) POCT GLUCOSE (AUTOMATED) 2022-02-15 09:30:00 Vic Mcdonald Un [facility]versity [facility] POCT GLUCOSE (AUTOMATED) 2022-02-15 09:30:00 Vic Mcdonald Un iversity [facility] POCT GLUCOSE (AUTOMATED) 2022-02-15 09:30:00 Vic Mcdonald Un [facility] POCT GLUCOSE (AUTOMATED) 2022-02-15 07:11:00 Vic Mcdonald Un [facility] POCT GLUCOSE (AUTOMATED) 2022-02-15 07:11:00 Vic Mcdonald Un [facility] POCT GLUCOSE (AUTOMATED) 2022-02-15 07:11:00 Vic Mcdonald Un [facility] OSMOLALITY, SERUM OR 2022-02-15 07:07:00 Vic Mcdonald sity [facility] BETA HYDROXY-BUTYRATE 2022-02-15 07:07:00 [facility]SMOLAL[facility], SERUM OR 2022-02-15 07:07:00 Vic Mcdonald sity [facility] BETA HYDROXY-BUTYRATE 2022-02-15 07:07:00 [facility] OSMOLALITY, SERUM OR 2022-02-15 07:07:00 Vic Mcdonald sity [facility] BETA HYDROXY-BUTYRATE 2022-02-15 07:07:00 Vic Mcdonald [facility] BASIC METABOLIC PANEL (NA, 2022-02-15 07:06:00 Vic Mcdonald [facility] K, CL, CO2, GLUCOSE, BUN, Medica l Branch CREATININE, CA) BASIC METABOLIC PANEL (NA, 2022-02-15 07:06:00 Vic Mcdonald [facility] K, CL, CO2, GLUCOSE, BUN, Medica l Branch CREATININE, CA) BASIC METABOLIC PANEL (NA, 2022-02-15 07:06:00 Vic Mcdonald [facility] K, CL, CO2, GLUCOSE, BUN, Medica l Branch CREATININE, CA) CT ABDOMEN PELVIS W 2022-02-15 05:28:46 Vic Mcdonald [facility] CONTRAST [facility] CT ABDOMEN PELVIS W 2022-02-15 05:28:46 Vic Mcdonald [facility] CONTRAST [facility] CT ABDOMEN PELVIS W 2022-02-15 05:28:46 Vic Mcdonald [facility] CONTRAST [facility] POCT GLUCOSE(AGE >30DAYS) 2022-02-15 05:11:00 [facility](AGE >30DAYS) 2022-02-15 05:11:00 [facility] POCT GLUCOSE(AGE >30DAYS) 2022-02-15 05:11:00 [facility] PO[facility] GLUCOSE (AUTOMATED) 2022-02-15 05:08:00 [facility] POCT GLUCOSE (AUTOMATED) 2022-02-15 05:08:00 [facility] POCT GLUCOSE (AUTOMATED) 2022-02-15 05:08:00 [facility]LO[facility] C[facility] SCREEN 2022-02-15 04:31:00 [facility] BLOOD CULTURE WORKUP 2022-02-15 04:31:00 Vic [facility]cd[facility] GRAM POSITIVE BLOOD 2022-02-15 04:31:00 Vic Mcdonald [facility] PATHOGENS DNA [facility] PROBE-AEROBIC BLOOD CULTURE SCREEN 2022-02-15 04:31:00 [facility] 2022-02-15 04:31:00 [facility]ic [facility] GRAM POSITIVE BLOOD 2022-02-15 04:31:00 Vic Mcdonald [facility] PATHOGENS DNA [facility] PROBE-AEROBIC BLOOD CULTURE SCREEN 2022-02-15 04:31:00 Vic [facility]cdonald [facility] BLOOD CULTURE WORKUP 2022-02-15 04:31:00 Vic Mcdonald Univer [facility] GRAM POSITIVE BLOOD 2022-02-15 04:31:00 Vic Mcdonald [facility] PATHOGENS [facility] PROBE-AEROBIC URINALYSIS 2022-02-15 04:21:[address] [facility] URINE CULTURE 2022-02-15 04:21:[address] [facility] URINALYSIS 2022-02-15 04:21:[address] [facility] URINE CULTURE 2022-02-15 04:21:[address] [facility] URINALYSIS 2022-02-15 04:21:[address] [facility] URINE CULTURE 2022-02-15 04:21:[address] [facility] COVID-19 (ID NOW RAPID 2022-02-15 04:20:00 HarryVic taylor B [facility] TESTING) Medical Branch LAB ONLY COVID 2022-02-15 04:20:00 Vic Mcdonald [facility] INTERPRETATION [facility] COVID-19 (ID NOW RAPID 2022-02-15 04:20:00 Falls, Vic B [facility] TESTING) Medical Branch LAB ONLY COVID 2022-02-15 04:20:00 Vic Mcdonald [facility] COVID-19 (ID NOW RAPID 2022-02-15 04:20:00 Vic Mcdonald [facility] TESTING) Medical Branch LAB ONLY COVID 2022-02-15 04:20:00 Vic Mcdonald [facility] INTERPRETATION [facility] CBC WITH DIFF 2022-02-15 04:18:[address] [facility] PROTHROMBIN TIME / INR 2022-02-15 04:18:00 Harry Vic B [facility] BASIC METABOLIC PANEL (NA, 2022-02-15 04:18:00 Vic Mcdonald [facility] K, CL, CO2, GLUCOSE, BUN, Medica l Branch CREATININE, CA) HEPATIC FUNCTION PANEL 2022-02-15 04:18:00 Harry [facility] ([id number]) (ALB,T.PRO,BILI [facility] Branch T,BU/BC,ALT,AST,ALK PHOS) LIPASE 2022-02-15 04:18:[address] [facility] ACUTE CARE VENOUS BLOOD 2022-02-15 04:18:00 Vic Mcdonald [facility] GAS [facility] LACTIC ACID WHOLE BLOOD 2022-02-15 04:18:00 Vic Mcdonald [facility] MAGNESIUM 2022-02-15 04:18:[address] [facility] PHOSPHORUS 2022-02-15 04:18:[address] [facility] GLYCOSYLATED HEMOGLOBIN 2022-02-15 04:18:00 Vic Mcdonald [facility] (A1C) [facility] PHOSPHORUS 2022-02-15 04:18:[address] [facility] LIPASE 2022-02-15 04:18:[address] [facility] MAGNESIUM 2022-02-15 04:18:[address] [facility] HEPATIC FUNCTION PANEL 2022-02-15 04:18:00 Harry Vic B [facility] ([id number]) (ALB,T.PRO,BILI [facility] T,BU/BC,ALT,AST,ALK PHOS) BASIC METABOLIC PANEL (NA, 2022-02-15 04:18:00 HarryVic B [facility] K, CL, CO2, GLUCOSE, BUN, Medica l Branch CREATININE, CA) ACUTE CARE VENOUS BLOOD 2022-02-15 04:18:00 HarryVic taylor B Uni [facility] CBC WITH DIFF 2022-02-15 04:18:[address] [facility] GLYCOSYLATED HEMOGLOBIN 2022-02-15 04:18:00 Vic Mcdonald B [facility] ([facility]) [facility] PROTHROMBIN TIME / INR 2022-02-15 04:18:00 Falls, Cody B [facility] LACTIC ACID WHOLE BLOOD 2022-02-15 04:18:00 HarryVic henriquez Uni [facility] PHOSPHORUS 2022-02-15 04:18:[address] [facility] LIPASE 2022-02-15 04:18:[address] [facility] MAGNESIUM 2022-02-15 04:18:[address] [facility] HEPATIC FUNCTION PANEL 2022-02-15 04:18:00 Harry Vic B [facility] ([id number]) (ALB,T.PRO,[facility] Branch T,BU/BC,ALT,AST,ALK PHOS) BASIC METABOLIC PANEL (NA, 2022-02-15 04:18:00 Vic Mcdonald [facility] K, CL, CO2, GLUCOSE, BUN, Medica l Branch CREATININE, CA) ACUTE CARE VENOUS BLOOD 2022-02-15 04:18:00 HarryVic taylor B Uni [facility] CBC WITH DIFF 2022-02-15 04:18:[address] [facility] GLYCOSYLATED HEMOGLOBIN 2022-02-15 04:18:00 Vic Mcdonald B [facility] (A1C) [facility] PROTHROMBIN TIME / INR 2022-02-15 04:18:00 Falls, Cody B [facility] LACTIC ACID WHOLE BLOOD 2022-02-15 04:18:00 Vic Mcdonald B [facility] EMERGENCY DEPARTMENT 2022-02-14 05:01:00 Doctor Unassigned, [facility] DOCUMENTS [facility] HOSPITAL ADMISSION 2022-02-14 05:01:00 Doctor Unassigned, [facility] EMERGENCY DEPARTMENT 2022-02-14 05:01:00 Doctor Unassigned, [facility] DOCUMENTS [facility] HOSPITAL ADMISSION 2022-02-14 05:01:00 Doctor Unassigned, [facility] EMERGENCY DEPARTMENT 2022-02-14 05:01:00 Doctor Unassigned, [facility] DOCUMENTS [facility] HOSPITAL ADMISSION 2022-02-14 05:01:00 Doctor Unassigned, [facility] POCT GLUCOSE (AUTOMATED) 2022-02-10 19:34:00 EdFarzad saavedray [facility] POCT GLUCOSE (AUTOMATED) 2022-02-10 19:34:00 EdionKaylee yun [facility] POCT GLUCOSE (AUTOMATED) 2022-02-10 16:39:00 Edionwe, [facility] POCT GLUCOSE (AUTOMATED) 2022-02-10 16:39:00 EdionKaylee yun [facility] BASIC METABOLIC PANEL (NA, 2022-02-10 09:13:00 [place], Dileep [facility] [place] K, CL, CO2, GLUCOSE, BUN, Medica l Branch CREATININE, CA) BASIC METABOLIC PANEL (NA, 2022-02-10 09:13:00 Oville, Dileep [facility] [place] K, CL, CO2, GLUCOSE, BUN, Medica l Branch CREATININE, CA) POCT GLUCOSE (AUTOMATED) 2022-02-10 01:45:00 EdionweFarzady [facility] POCT GLUCOSE (AUTOMATED) 2022-02-10 01:45:00 Edionwe, [facility] POCT GLUCOSE (AUTOMATED) 2022-02-09 21:36:00 Edionwe, [facility] POCT GLUCOSE (AUTOMATED) 2022-02-09 21:36:00 Edionwe [facility] POCT GLUCOSE (AUTOMATED) 2022-02-09 16:45:00 Kaylee Argueta [facility] POCT GLUCOSE (AUTOMATED) 2022-02-09 16:45:00 Kaylee Argueta [facility] PHOSPHORUS 2022-02-09 13:17:00 [facility] MAGN[facility]UM 2022-02-09 13:17:00 Cathleen [facility] BASIC METABOLIC PANEL (NA, 2022-02-09 13:17:00 Dileep Connolly [facility] K, CL, CO2, GLUCOSE, BUN, Medica l Branch CREATININE, CA) BASIC METABOLIC PANEL (NA, 2022-02-09 13:17:00 Dileep Connolly [facility] K, CL, CO2, GLUCOSE, BUN, Medica l Branch CREATININE, CA) MAGNESIUM 2022-02-09 13:17:00 [facility] PHOS[facility]US 2022-02-09 13:17:00 Cathleen [facility] POCT GLUCOSE (AUTOMATED) 2022-02-09 12:42:00 [facility] POCT GLUCOSE (AUTOMATED) 2022-02-09 12:42:00 Kaylee [facility] POCT GLUCOSE (AUTOMATED) 2022-02-09 01:08:00 Kaylee [facility] POCT GLUCOSE (AUTOMATED) 2022-02-09 01:08:00 Kaylee Argueta [facility] URINALYSIS 2022-02-08 22:52:00 [facility] 2022-02-08 22:52:00 Cathleen [facility] URINALYSIS 2022-02-08 22:52:00 Cathleen [facility] URINE CULTURE 2022-02-08 22:52:00 Cathleen [facility] POCT GLUCOSE (AUTOMATED) 2022-02-08 21:40:00 Kaylee [facility] POCT GLUCOSE (AUTOMATED) 2022-02-08 21:40:00 EllieKaylee [facility] POCT GLUCOSE (AUTOMATED) 2022-02-08 16:02:00 [facility]ker[facility]Kaylee [facility] POCT GLUCOSE (AUTOMATED) 2022-02-08 16:02:00 [facility]Kaylee [facility] POCT GLUCOSE (AUTOMATED) 2022-02-08 13:08:00 EdionweKaylee [facility] POCT GLUCOSE (AUTOMATED) 2022-02-08 13:08:00 EdkeriKaylee [facility] POCT GLUCOSE (AUTOMATED) 2022-02-08 10:58:00 EllieKaylee [facility] POCT GLUCOSE (AUTOMATED) 2022-02-08 10:58:00 EllieKaylee [facility] [employer] [facility] LACTIC ACID WHOLE BLOOD 2022-02-08 09:47:00 Kirit [facility] LACTIC ACID WHOLE BLOOD 2022-02-08 09:47:00 Severino Beth [facility] PHOSPHORUS 2022-02-08 09:46:00 Severino Beth [facility] MAGNESIUM 2022-02-08 09:46:00 Kirit [facility] COMP. METABOLIC PANEL 2022-02-08 09:46:00 Severino eBth [facility] ([id number] CBC WITH DIFF 2022-02-08 09:46:00 [facility] WITH DIFF 2022-02-08 09:46:00 Severino [facility] COMP. METABOLIC PANEL 2022-02-08 09:46:00 Severino Beth [facility] ([id number]) [facility] MAGNESIUM 2022-02-08 09:46:00 Severino Beth [facility] PHOSPHORUS 2022-02-08 09:46:00 Severino Beth [facility] POCT GLUCOSE (AUTOMATED) 2022-02-08 07:47:00 EdionweKaylee versity of [facility] POCT GLUCOSE (AUTOMATED) 2022-02-08 07:47:00 Ellie Kaylee Aguilar versity of [facility] POCT GLUCOSE (AUTOMATED) 2022-02-08 03:40:00 EllieKaylee versity of [facility] POCT GLUCOSE (AUTOMATED) 2022-02-08 03:40:00 Edkeri Kaylee Agu[facility] vers[facility] POCT GLUCOSE (AUTOMATED) 2022-02-08 00:43:00 EdioncourtKaylee versity of [facility] POCT GLUCOSE (AUTOMATED) 2022-02-08 00:43:00 Ellie Kaylee Agu[facility] BASIC METABOLIC PANEL (NA, 2022-02-07 23:29:00 [facility], CL, CO2, GLUCOSE, BUN, Medica l Branch CREATININE, CA) BASIC METABOLIC PANEL (NA, 2022-02-07 23:29:00 Severino [facility], CL, CO2, GLUCOSE, BUN, Medica l Branch CREATININE, CA) POCT GLUCOSE (AUTOMATED) 2022-02-07 22:28:00 Ellie Kaylee Aguilar vers[facility] POCT GLUCOSE (AUTOMATED) 2022-02-07 22:28:00 Ellie Kaylee Aguilar vers[facility] of [facility] US RETROPERITONEAL 2022-02-07 22:27:00 Severino Beth [facility] [place] COMPLETE Medical Branch US RETROPERITONEAL 2022-02-07 22:27:00 Severino Beth [facility] [place] COMPLETE Medical Branch CT ABDOMEN PELVIS WO 2022-02-07 20:05:00 Severino Beth [facility] [place] CONTRAST Medical Branch CT ABDOMEN PELVIS WO 2022-02-07 20:05:00 Severino [facility] [place] CONTRAST [facility] Branch POCT GLUCOSE (AUTOMATED) 2022-02-07 19:07:00 Ellie Kaylee Aguilar vers[facility] of [facility] POCT GLUCOSE (AUTOMATED) 2022-02-07 19:07:00 Ellie Kaylee Aguilar vers[facility] POCT GLUCOSE (AUTOMATED) 2022-02-07 18:00:00 Kaylee [facility]gu[facility] POCT GLUCOSE (AUTOMATED) 2022-02-07 18:00:00 Kaylee [facility]gueta [facility] PROTEIN CREAT RATIO URINE 2022-02-07 17:45:00 Augusta Hendricks [facility] PROTEIN CREAT RATIO URINE 2022-02-07 17:45:00 Augusta Hendricks [facility] POCT GLUCOSE (AUTOMATED) 2022-02-07 17:25:00 Kaylee [facility]gueta [facility] POCT GLUCOSE (AUTOMATED) 2022-02-07 17:25:00 Kaylee Argueta [facility] [employer] [facility] LACTIC ACID WHOLE BLOOD 2022-02-07 17:23:00 Severino Beth [facility] LACTIC ACID WHOLE BLOOD 2022-02-07 17:23:00 Severino Beth [facility] BASIC METABOLIC PANEL (NA, 2022-02-07 17:22:00 Severino Beth U [facility] K, CL, CO2, GLUCOSE, BUN, Medica l Branch CREATININE, CA) BASIC METABOLIC PANEL (NA, 2022-02-07 17:22:00 Severino [facility], CL, CO2, GLUCOSE, BUN, Medica l Branch CREATININE, CA) POCT GLUCOSE (AUTOMATED) 2022-02-07 16:07:00 Kaylee Argueta Uni versity [facility] POCT GLUCOSE (AUTOMATED) 2022-02-07 16:07:00 Kaylee Argueta [facility] POCT GLUCOSE (AUTOMATED) 2022-02-07 15:04:00 Kaylee Argueta [facility] POCT GLUCOSE (AUTOMATED) 2022-02-07 15:04:00 Kaylee Argueta [facility] POCT GLUCOSE (AUTOMATED) 2022-02-07 13:57:00 Kaylee Argueta [facility] POCT GLUCOSE (AUTOMATED) 2022-02-07 13:57:00 Kaylee Argueta [facility] [facility] URINE CULTURE 2022-02-07 13:50:00 [facility] URINE CULTURE 2022-02-07 13:50:00 [facility] LACTIC ACID WHOLE BLOOD 2022-02-07 12:57:00 Ellie [facility] LACTIC ACID WHOLE BLOOD 2022-02-07 12:57:00 Edkeri [facility] POCT GLUCOSE (AUTOMATED) 2022-02-07 12:55:00 Edioncourt, [facility] POCT GLUCOSE (AUTOMATED) 2022-02-07 12:55:00 Ellie [facility] BASIC METABOLIC PANEL (NA, 2022-02-07 12:51:00 Ellie, [facility] K, CL, CO2, GLUCOSE, BUN, Medica l Branch CREATININE, CA) BASIC METABOLIC PANEL (NA, 2022-02-07 12:51:00 Edkeri, [facility] K, CL, CO2, GLUCOSE, BUN, Medica l Branch CREATININE, CA) MRSA / MSSA SCREEN BY PCR, 2022-02-07 10:37:00 Ellie [facility] MRSA / MSSA SCREEN BY PCR, 2022-02-07 10:37:00 Ellie [facility] URINE DRUG (IMMUNOASSAY) - 2022-02-07 10:36:00 Kaylee Argueta [facility] COMPREHENSIVE DRUG SCREEN Medica l Branch LACTIC ACID WHOLE BLOOD 2022-02-07 10:36:00 Edkeri [facility] URINE DRUG (LCMSMS) - 2022-02-07 10:36:[address] [facility] SYNTHETIC OPIATES PANEL [facility] LACTIC ACID WHOLE BLOOD 2022-02-07 10:36:00 Ellie [facility] URINE DRUG (IMMUNOASSAY) - 2022-02-07 10:36:00 Edkeri [facility] COMPREHENSIVE DRUG SCREEN [facility]ica [facility] URINE DRUG (LCMSMS) - 2022-02-07 10:36[facility] PHOSPHORUS 2022-02-07 08:58:[address] [facility] MAGNESIUM 2022-02-07 08:58:[facility] 2022-02-07 08:58:00 [facility] [facility] BASIC METABOLIC PANEL (NA, 2022-02-07 08:58:00 [facility], CO2, GLUCOSE, BUN, Medica l Branch CREATININE, CA) BETA HYDROXY-BUTYRATE 2022-02-07 08:58:[address] [facility] BASIC METABOLIC PANEL (NA, 2022-02-07 08:58:00 [facility], CL, CO2, GLUCOSE, BUN, Medica l Branch CREATININE, CA) MAGNESIUM 2022-02-07 08:58:[address] [facility] PHOSPHORUS 2022-02-07 08:58:00 [facility]FF 2022-02-07 06:40:00 [facility] LACT[facility]ID WHOLE BLOOD 2022-02-07 06:40:00 [facility] WHO[facility] BLOOD 2022-02-07 06:40:00 [facility] WITH DIFF 2022-02-07 06:40:00 [facility] POCT GLUCOSE (AUTOMATED) 2022-02-07 05:14[facility]00 [facility] 2022-02-07 05:14[facility]00 [facility]HETERIZATION 2022-02-07 04:35:00 AlcantaraCarlene montes de oca [facility] ED BLADDER CATHETERIZATION 2022-02-07 04:35:00 Carlene Alcantara [facility] POCT GLUCOSE (AUTOMATED) 2022-02-07 03:51:00 EllieKaylee [facility] POCT GLUCOSE (AUTOMATED) 2022-02-07 03:51:00 Ellie Kaylee [facility] XR CHEST 1 VW 2022-02-07 02:43:07 Carlene Alcantara [facility] XR ANKLE 3+ VW LEFT 2022-02-07 02:43:07 Carlene Alcantara [facility] XR CHEST 1 VW 2022-02-07 02:43:07 Carlene Alcantara [facility] XR ANKLE 3+ VW LEFT 2022-02-07 02:43:07 Carlene Alcantara [facility] LACTIC ACID WHOLE BLOOD 2022-02-07 02:30:00 Carlene Alcantara [facility] LACTIC ACID WHOLE BLOOD 2022-02-07 02:30:00 Carlene Alcantara [facility] URINALYSIS 2022-02-07 01:38:00 Calrene Alcantara [facility] URINALYSIS 2022-02-07 01:38:00 Carlene Alcantara [facility] POCT GLUCOSE (AUTOMATED) 2022-02-07 01:36:00 Carlene Alcantara [facility] POCT GLUCOSE (AUTOMATED) 2022-02-07 01:36:00 Carlene Alcantara [facility] PHOSPHORUS 2022-02-07 01:24:00 Carlene Alcantara [facility] LIPASE 2022-02-07 01:24:00 Carlene Alcantara [facility] MAGNESIUM 2022-02-07 01:24:00 Carlene Alcantara [facility] TROPONIN I 2022-02-07 01:24:00 Carlene Alcantara [facility] COMP. METABOLIC PANEL 2022-02-07 01:24:00 Carlene Alcantara [facility] ([id number]) [facility] SALICYLATE 2022-02-07 01:24:00 Carlene Alcantara [facility] ETHANOL 2022-02-07 01:24:00 Carlene Alcantara [facility] COMP. METABOLIC PANEL 2022-02-07 01:24:00 Carlene Alcantara [facility] ([id number]) Medical Branch LIPASE 2022-02-07 01:24:00 Carlene Alcantara [facility] TROPONIN I 2022-02-07 01:24:00 Carlene Alcantara [facility] ETHANOL 2022-02-07 01:24:00 Carlene Alcantara [facility] ACETAMINOPHEN 2022-02-07 01:24:00 Carlene Alcantara [facility] PHOSPHORUS 2022-02-07 01:24:00 Carlene Alcantara [facility] MAGNESIUM 2022-02-07 01:24:00 Carlene Alcantara [facility] CT LUMBAR SPINE WO 2022-02-07 01:16:52 Carlene Alcantara [facility] CONTRAST [facility] CT THORACIC SPINE WO 2022-02-07 01:16:52 Carlene Alcantara [facility] CONTRAST [facility] CT THORACIC SPINE WO 2022-02-07 01:16:52 Carlene Alcantara [facility] CONTRAST [facility] CT LUMBAR SPINE WO 2022-02-07 01:16:52 Carlene Alcantara [facility] CONTRAST [facility] CT CERVICAL SPINE WO 2022-02-07 01:16:24 Carlene Alcantara [facility] CONTRAST [facility] CT HEAD WO CONTRAST 2022-02-07 01:16:24 Carlene Alcantara [facility] CT HEAD WO CONTRAST 2022-02-07 01:16:24 Carlene Alcantara [facility] CT CERVICAL SPINE WO 2022-02-07 01:16:24 Carlene Alcantara [facility] CONTRAST [facility] BLOOD CULTURE SCREEN 2022-02-07 00:41:00 Carlene Alcantara [facility] BLOOD CULTURE SCREEN 2022-02-07 00:41:00 Carlene Alcantara [facility] COVID-19 (ID NOW RAPID 2022-02-07 00:30:00 Carlene Alcantara [facility] TESTING) Medical Branch LAB ONLY COVID 2022-02-07 00:30:00 Carlene Alcantara [facility] INTERPRETATION Medical Branch COVID-19 (ID NOW RAPID 2022-02-07 00:30:00 Carlene Alcantara [facility] TESTING) Medical Branch LAB ONLY COVID 2022-02-07 00:30:00 Carlene Alcantara [facility] INTERPRETATION Medical Branch POCT GLUCOSE (AUTOMATED) 2022-02-07 00:05:00 Carlene Alcantara [facility] POCT GLUCOSE (AUTOMATED) 2022-02-07 00:05:00 Carlene Alcantara [facility] ACUTE CARE VENOUS BLOOD 2022-02-06 23:53:00 Carlene Alcantara [facility] ACUTE CARE VENOUS BLOOD 2022-02-06 23:53:00 Carlene Alcantara [facility] GAS Medical Branch CBC WITH DIFF 2022-02-06 23:48:00 Carlene Alcantara [facility] Branch CBC WITH DIFF 2022-02-06 23:48:00 Carlene Alcantara [facility] LACTIC ACID WHOLE BLOOD 2022-02-06 23:47:00 Carlene Alcantara [facility] Medical [place] LACTIC ACID WHOLE BLOOD 2022-02-06 23:47:00 Carlene Alcantara [facility] HB ECG ROUTINE & RHYTHM 2022-02-06 23:31:40 Carlene Alcantara [facility] Medical Branch HB ECG ROUTINE & RHYTHM 2022-02-06 23:31:40 Carlene Alcantara [facility] Medical Branch EMERGENCY DEPARTMENT 2022-02-06 05:01:00 Doctor Beto, [facility] DOCUMENTS [place] [facility] EMERGENCY DEPARTMENT 2022-02-06 05:01:00 Doctor Beto, [facility] DOCUMENTS [place] [facility] HOSPITAL ADMISSION 2022-02-06 05:01:00 Doctor eBto [facility] [place] [facility] CT FEMUR LEFT W CONTRAST 2022-01-27 02:34:07 Sanford, Sidney Uni [facility] CT FEMUR LEFT W CONTRAST 2022-01-27 02:34:07 Sidney Sanford [facility] POCT GLUCOSE(AGE >30DAYS) 2022-01-27 01:30:00 [facility] GLU[facility]SE(AGE >30DAYS) 2022-01-27 01:30:00 Sidney Sanford [facility] POCT GLUCOSE (AUTOMATED) 2022-01-27 01:28:00 Randall Sands [facility] POCT GLUCOSE (AUTOMATED) 2022-01-27 01:28:00 Randall Sands [facility] POCT GLUCOSE (AUTOMATED) 2022-01-27 00:38:00 Randall Sands [facility] POCT GLUCOSE (AUTOMATED) 2022-01-27 00:38:00 Randall Sands [facility] URINALYSIS 2022-01-26 23:58:[address] [facility] URINALYSIS 2022-01-26 23:58:[address] [facility] POCT GLUCOSE (AUTOMATED) 2022-01-26 23:26:00 Randall Sands [facility] POCT GLUCOSE (AUTOMATED) 2022-01-26 23:26:00 Randall Sands [facility] BASIC METABOLIC PANEL (NA, 2022-01-26 22:24:00 Randall Sands [facility] K, CL, CO2, GLUCOSE, BUN, Medica l Branch CREATININE, CA) CBC WITH DIFF 2022-01-26 22:24:[address] [facility] COVID-19 (ID NOW RAPID 2022-01-26 22:24:[address] [facility] CBC WITH DIFF 2022-01-26 22:24:[address] [facility] BASIC METABOLIC PANEL (NA, 2022-01-26 22:24:00 Shavon [facility] K, CL, CO2, GLUCOSE, BUN, Medica l Branch CREATININE, CA) COVID-19 (ID NOW RAPID 2022-01-26 22:24:00 Randall Sands [facility] TESTING) Medical Branch LAB ONLY COVID 2022-01-26 22:24:00 Randall Sands [facility] INTERPRETATION Medical Branch EMERGENCY SERVICES 2022-01-26 05:01:00 Doctor Unassigned, [facility] AGREEMENTS AND [place] [facility] AUTHORIZATIONS EMERGENCY DEPARTMENT 2022-01-26 05:01:00 Doctor Unassigned, [facility] DOCUMENTS [place] [facility] LIPASE 2022-01-17 10:37:00 Jennifer Olivera [facility] COMP. METABOLIC PANEL 2022-01-17 10:37:00 Jennifer Olivera [facility] ([id number]) Medical Branch CBC WITH DIFF 2022-01-17 10:37:00 Jennifer Olivera [facility] AC PANEL 21 + LACTIC ACID 2022-01-17 10:37:00 Jennifer Olivera [facility] CBC WITH DIFF 2022-01-17 10:37:00 Jennifer Olivera [facility] COMP. METABOLIC PANEL 2022-01-17 10:37:00 Jennifer Olivera [facility] ([id number]) [facility] AC PANEL 21 + LACTIC ACID 2022-01-17 10:37:00 Jennifer Olivera [facility] LIPASE 2022-01-17 10:37:00 Jennifer Olivera [facility] URINALYSIS 2022-01-17 10:24:00 Jennifer Olivera [facility] URINALYSIS 2022-01-17 10:24:00 Jennifer Olivera [facility] EMERGENCY SERVICES 2022-01-17 05:01:00 Doctor Amyssigned, [facility] AGREEMENTS AND [place] [facility] AUTHORIZATIONS POCT GLUCOSE (AUTOMATED) 2022-01-12 22:53:00 Jennifer Olivera [facility] POCT GLUCOSE (AUTOMATED) 2022-01-12 22:53:00 Jennifer Olivera [facility] POCT GLUCOSE (AUTOMATED) 2022-01-12 12:17:00 Jennifer Olivera [facility] POCT GLUCOSE (AUTOMATED) 2022-01-12 12:17:00 Jennifer [facility] POCT GLUCOSE (AUTOMATED) 2022-01-12 04:47:00 Jennifer [facility] POCT GLUCOSE (AUTOMATED) 2022-01-12 04:47:00 Jennifer [facility] POCT GLUCOSE (AUTOMATED) 2022-01-12 01:43:00 Jennifer [facility] [place] [facility] POCT GLUCOSE (AUTOMATED) 2022-01-12 01:43:00 Jennifer [facility] [place] [facility] POCT GLUCOSE (AUTOMATED) 2022-01-11 21:51:00 Jennifer Oliver[facility] POCT GLUCOSE (AUTOMATED) 2022-01-11 21:51:00 Jennifer Oliver[facility] POCT GLUCOSE (AUTOMATED) 2022-01-11 17:04:00 Jennifer Oliver[facility] POCT GLUCOSE (AUTOMATED) 2022-01-11 17:04:00 Jennifer [facility] [place] [facility] POCT GLUCOSE (AUTOMATED) 2022-01-11 13:09:00 eJnnifer Olivera [facility] POCT GLUCOSE (AUTOMATED) 2022-01-11 13:09:00 Jennifer Oliver[facility] POCT GLUCOSE (AUTOMATED) 2022-01-11 08:32:00 Jennifer Oliver[facility] [place] [facility] POCT GLUCOSE (AUTOMATED) 2022-01-11 08:32:00 Jennifer Olivera [facility] [place] [facility] POCT GLUCOSE (AUTOMATED) 2022-01-11 05:45:00 Jennifer Oliver[facility] [place] [facility] POCT GLUCOSE (AUTOMATED) 2022-01-11 05:45:00 Jennifer Oliver[facility] [place] [facility] POCT GLUCOSE (AUTOMATED) 2022-01-11 02:43:00 Jennifer Oliver[facility] [place] [facility] POCT GLUCOSE (AUTOMATED) 2022-01-11 02:43:00 Jennifer Oliver[facility] [place] [facility] POCT GLUCOSE (AUTOMATED) 2022-01-10 22:37:00 Jennifer [facility] [place] [facility] POCT GLUCOSE (AUTOMATED) 2022-01-10 22:37:00 Jennifer Olivera [facility] POCT GLUCOSE (AUTOMATED) 2022-01-10 18:04:00 Jennifer Olivera [facility] POCT GLUCOSE (AUTOMATED) 2022-01-10 18:04:00 Jennifer Olivera [facility] BASIC METABOLIC PANEL (NA, 2022-01-10 14:22:00 Talley, Dontae [facility] [place] K, CL, CO2, GLUCOSE, BUN, Medica l Branch CREATININE, CA) BASIC METABOLIC PANEL (NA, 2022-01-10 14:22:00 Talley, Dontae [facility] K, CL, CO2, GLUCOSE, BUN, Medica l Branch CREATININE, CA) POCT GLUCOSE (AUTOMATED) 2022-01-10 13:30:00 Jennifer Olivera [facility] POCT GLUCOSE (AUTOMATED) 2022-01-10 13:30:00 Jennifer Olivera [facility] CRITICAL CARE 2022-01-10 11:11:00 Jennifer Olivera [facility] CRITICAL CARE 2022-01-10 11:11:00 Jennifer Olivera [facility] POCT GLUCOSE (AUTOMATED) 2022-01-10 11:01:00 Jennifer Olivera [facility] POCT GLUCOSE (AUTOMATED) 2022-01-10 11:01:00 Jennifer Olivera [facility] POCT GLUCOSE (AUTOMATED) 2022-01-10 07:19:00 Jennifer Olivera [facility] POCT GLUCOSE (AUTOMATED) 2022-01-10 07:19:00 Jennifer Olivera [facility] BASIC METABOLIC PANEL (NA, 2022-01-10 05:53:00 [facility] [place] [facility], CL, CO2, GLUCOSE, BUN, Medica l Branch CREATININE, CA) BASIC METABOLIC PANEL (NA, 2022-01-10 05:53:00 [facility] [place] K, CL, CO2, GLUCOSE, BUN, Medica l Branch CREATININE, CA) POCT GLUCOSE (AUTOMATED) 2022-01-10 04:41:00 Olivera, Jennifer [facility] POCT GLUCOSE (AUTOMATED) 2022-01-10 04:41:00 Jennifer Olivera [facility] URINALYSIS 2022-01-10 03:59:00 Jennifer Olivera [facility] URINE CULTURE 2022-01-10 03:59:00 Jennifer Olivera [facility] URINALYSIS 2022-01-10 03:59:00 Jennifer Olivera [facility] URINE CULTURE 2022-01-10 03:59:00 Jennifer Olivera [facility] POCT GLUCOSE (AUTOMATED) 2022-01-10 03:48:00 Jennifer Olivera [facility] POCT GLUCOSE (AUTOMATED) 2022-01-10 03:48:00 Jennifer Olivera [facility] AC PANEL 21 + LACTIC ACID 2022-01-10 02:23:00 [facility] PANEL 21 + LACTIC ACID 2022-01-10 02:23:00 Jennifer Olivera [facility] LIPASE 2022-01-10 02:22:00 Jennifer Olivera [facility] COMP. METABOLIC PANEL 2022-01-10 02:22:00 Jennifer Olivera [facility] ([id number]) Medical Branch CBC WITH DIFF 2022-01-10 02:22:00 Jennifer Olivera [facility] COVID-19 (ID NOW RAPID 2022-01-10 02:22:00 eJnnifer Olivera [facility] TESTING) Medical Branch LAB ONLY COVID 2022-01-10 02:22:00 Jennifer Olivera [facility] INTERPRETATION [facility] CBC WITH DIFF 2022-01-10 02:22:00 Jennifer Olivera [facility] COMP. METABOLIC PANEL 2022-01-10 02:22:00 Jennifer Olivera [facility] ([id number]) Medical Branch LIPASE 2022-01-10 02:22:00 Jennifer Olivera [facility] COVID-19 (ID NOW RAPID 2022-01-10 02:22:00 Jennifer Olivera [facility] TESTING) Medical Branch LAB ONLY COVID 2022-01-10 02:22:00 Jennifer Olivera [facility] [place] INTERPRETATION [facility] Branch HOSPITAL ADMISSION 2022-01-09 05:01:00 Doctor Unassigned, [facility] Name Medical [place] EMERGENCY DEPARTMENT 2022-01-09 05:01:00 Doctor Unassigned, [facility] DOCUMENTS [place] [facility] HOSPITAL ADMISSION 2022-01-09 05:01:00 Doctor Unassigned, [facility] POCT GLUCOSE (AUTOMATED) 2022-01-06 17:03:00 Negar Guardado [facility] POCT GLUCOSE (AUTOMATED) 2022-01-06 16:09:00 Negar Guardado [facility] HEPATIC FUNCTION PANEL 2022-01-06 09:01:00 Carlene Weaver [facility] ([id number]) (ALB,T.PRO,BILI Medical Branch T,BU/BC,ALT,AST,ALK PHOS) BASIC METABOLIC PANEL (NA, 2022-01-06 09:01:00 [facility], CO2, GLUCOSE, BUN, Medica l Branch CREATININE, CA) CBC WITH DIFF 2022-01-06 09:01:00 Owen Carleneshaji [facility] CBC WITH DIFF 2022-01-06 09:01:00 Owen Carlene [facility] BASIC METABOLIC PANEL (NA, 2022-01-06 09:01:00 [facility], CL, CO2, GLUCOSE, BUN, Medica l Branch CREATININE, CA) HEPATIC FUNCTION PANEL 2022-01-06 09:01:00 Carlene Weaver [facility] ([id number]) (ALB,T.PRO,BILI Medical Branch T,BU/BC,ALT,AST,ALK PHOS) POCT GLUCOSE (AUTOMATED) 2022-01-06 08:58:00 Negar Guardado [facility] POCT GLUCOSE (AUTOMATED) 2022-01-06 06:53:00 Negar Guardado [facility] POCT GLUCOSE (AUTOMATED) 2022-01-06 05:31:00 Negar Guardado [facility] POCT GLUCOSE (AUTOMATED) 2022-01-06 02:16:00 Geo, Negar [facility] POCT GLUCOSE (AUTOMATED) 2022-01-05 21:50:00 Negar Guardado [facility] BASIC METABOLIC PANEL (NA, 2022-01-05 20:45:00 Oville, Dileep U [facility] K, CL, CO2, GLUCOSE, BUN, Medica l Branch CREATININE, CA) CBC WITH DIFF 2022-01-05 20:45:00 Cathleen [facility] BASIC METABOLIC PANEL (NA, 2022-01-05 20:45:00 Oville, Dileep [facility] K, CL, CO2, GLUCOSE, BUN, Medica l Branch CREATININE, CA) CBC WITH DIFF 2022-01-05 20:45:00 [facility]OMATED) 2022-01-05 16:44:00 Negar Guardado [facility] POCT GLUCOSE (AUTOMATED) 2022-01-05 13:41:00 Negar Guardado [facility] URINE CULTURE 2022-01-05 06:41:[address] [facility] URINE CULTURE 2022-01-05 06:41:[address] [facility] POCT GLUCOSE (AUTOMATED) 2022-01-05 06:10:00 Vadim Ferreira [facility] CT ABDOMEN PELVIS W 2022-01-05 05:08:00 Vadim Ferreira [facility] CONTRAST [facility] CT ABDOMEN PELVIS W 2022-01-05 05:08:00 Vadim Ferreira [facility] CONTRAST [facility] URINALYSIS 2022-01-05 04:34:[address] [facility] COVID-19 (ID NOW RAPID 2022-01-05 04:34:00 Vadim Ferreira [facility] TESTING) Medical Branch LAB ONLY COVID 2022-01-05 04:34:00 Vadim Ferreira [facility] INTERPRETATION [facility] URINALYSIS 2022-01-05 04:34:[address] [facility] COVID-19 (ID NOW RAPID 2022-01-05 04:34:00 Vadim Ferreira [facility] TESTING) Medical Branch LAB ONLY COVID 2022-01-05 04:34:00 Vadim Ferreira [facility] INTERPRETATION [facility] Branch LIPASE 2022-01-05 03:57:[address] [facility] COMP. METABOLIC PANEL 2022-01-05 03:57:00 Vadim Ferreira [facility] ([id number]) [facility] CBC WITH DIFF 2022-01-05 03:57:[address] [facility] CBC WITH DIFF 2022-01-05 03:57:[address] [facility] COMP. METABOLIC PANEL 2022-01-05 03:57:00 Vadim Ferreira [facility] ([id number]) Medical Branch LIPASE 2022-01-05 03:57:[address] [facility] EMERGENCY DEPARTMENT 2022-01-04 05:01:00 Doctor Unassigned, [facility] DOCUMENTS [place] [facility] HOSPITAL ADMISSION 2022-01-04 05:01:00 Doctor Unassigned, [facility] [place] [facility] POCT GLUCOSE (AUTOMATED) 2021-12-22 21:48:00 Kaylee Argueta Uni [facility] POCT GLUCOSE (AUTOMATED) 2021-12-22 17:03:00 EdKaylee saavedra [facility] POCT GLUCOSE (AUTOMATED) 2021-12-22 17:03:00 EdionKaylee yun Uni [facility] POCT GLUCOSE (AUTOMATED) 2021-12-22 12:44:00 [facility]OM[facility]) 2021-12-22 12:44:00 EdKaylee saavedra [facility] BASIC METABOLIC PANEL (NA, 2021-12-22 10:29:00 Negar Guardado [facility] K, CL, CO2, GLUCOSE, BUN, Medica l Branch CREATININE, CA) CBC WITH DIFF 2021-12-22 10:29:00 Negar Guardado o f [facility] MAGNESIUM 2021-12-22 10:29:00 Negar Guardado [facility] Branch MAGNESIUM 2021-12-22 10:29:00 Negar Guardado [facility] BASIC METABOLIC PANEL (NA, 2021-12-22 10:29:00 Negar Guardado [facility] K, CL, CO2, GLUCOSE, BUN, Medica l Branch CREATININE, CA) CBC WITH DIFF 2021-12-22 10:29:00 Negar Guardado [facility] POCT GLUCOSE (AUTOMATED) 2021-12-22 10:28:00 Edionwe, [facility] POCT GLUCOSE (AUTOMATED) 2021-12-22 10:28:00 Edionwe, [facility] [place] [facility] POCT GLUCOSE (AUTOMATED) 2021-12-22 05:33:00 Edionwe, [facility] [place] [facility] POCT GLUCOSE (AUTOMATED) 2021-12-22 05:33:00 Edionwe, [facility] [place] [facility] POCT GLUCOSE (AUTOMATED) 2021-12-22 04:37:00 Edionwe, [facility] [place] [facility] POCT GLUCOSE (AUTOMATED) 2021-12-22 04:37:00 Edionwe, [facility] [place] [facility] POCT GLUCOSE (AUTOMATED) 2021-12-22 02:29:00 Edionwe, [facility] [place] [facility] POCT GLUCOSE (AUTOMATED) 2021-12-22 02:29:00 Edionwe, [facility] [place] [facility] POCT GLUCOSE (AUTOMATED) 2021-12-22 00:52:00 Edionwe, [facility] [place] [facility] POCT GLUCOSE (AUTOMATED) 2021-12-22 00:52:00 Edionwe, [facility] [place] [facility] POCT GLUCOSE (AUTOMATED) 2021-12-21 21:52:00 Edionwe, [facility] [place] [facility] POCT GLUCOSE (AUTOMATED) 2021-12-21 21:52:00 Edionwe, [facility] [place] [facility] POCT GLUCOSE (AUTOMATED) 2021-12-21 16:42:00 Edionwe, [facility] [place] [facility] POCT GLUCOSE (AUTOMATED) 2021-12-21 16:42:00 EllieFarzadlizet [facility] XR CHEST 1 VW 2021-12-21 14:05:00 Geo [facility] XR SKULL <4 VW 2021-12-21 14:05:00 Geo [facility] XR ABDOMEN 2 VW 2021-12-21 14:05:00 Geo [facility] XR ABDOMEN 2 VW 2021-12-21 14:05:00 Geo [facility] XR CHEST 1 VW 2021-12-21 14:05:00 Geo [facility] XR SKULL <4 VW 2021-12-21 14:05:00 Geo [facility] POCT GLUCOSE (AUTOMATED) 2021-12-21 12:47:00 Ellie Kaylee [facility] POCT GLUCOSE (AUTOMATED) 2021-12-21 12:47:00 Ellie Farzadlizet [facility] POCT GLUCOSE (AUTOMATED) 2021-12-21 08:59:00 [facility] POCT GLUCOSE (AUTOMATED) 2021-12-21 08:59:00 Ellie Farzadlizet [facility] GLYCOSYLATED HEMOGLOBIN 2021-12-21 08:56:00 Severino Beth [facility] (A1C) [facility] CBC WITH DIFF 2021-12-21 08:56:00 Severino Beth [facility] BASIC METABOLIC PANEL (NA, 2021-12-21 08:56:00 Severino Beth [facility] K, CL, CO2, GLUCOSE, BUN, Medica l Branch CREATININE, CA) MAGNESIUM 2021-12-21 08:56:00 Severino Beth [facility] PHOSPHORUS 2021-12-21 08:56:00 Severino Beth [facility] PHOSPHORUS 2021-12-21 08:56:00 Severino Beth [facility] MAGNESIUM 2021-12-21 08:56:00 Severino Beth [facility] BASIC METABOLIC PANEL (NA, 2021-12-21 08:56:00 Severino Beth [facility] K, CL, CO2, GLUCOSE, BUN, Medica l Branch CREATININE, CA) CBC WITH DIFF 2021-12-21 08:56:00 Severino Beth [place] o [facility] GLYCOSYLATED HEMOGLOBIN 2021-12-21 08:56:00 [id number] POCT GLUCOSE (AUTOMATED) 2021-12-21 04:27:00 Edionwe, [facility] POCT GLUCOSE (AUTOMATED) 2021-12-21 04:27:00 Edionwe, [facility] POCT GLUCOSE (AUTOMATED) 2021-12-21 01:11:00 Edionwe, [facility] POCT GLUCOSE (AUTOMATED) 2021-12-21 01:11:00 Edionwe, [facility] POCT GLUCOSE (AUTOMATED) 2021-12-20 21:02:00 Edionwe, [facility] POCT GLUCOSE (AUTOMATED) 2021-12-20 21:02:00 Edionwe, [facility] POCT GLUCOSE (AUTOMATED) 2021-12-20 16:08:00 Edionwe, [facility] POCT GLUCOSE (AUTOMATED) 2021-12-20 16:08:00 Edionwe, [facility] POCT GLUCOSE (AUTOMATED) 2021-12-20 12:39:00 Edionwe, [facility] POCT GLUCOSE (AUTOMATED) 2021-12-20 12:39:00 Edionwe, [facility] LACTIC ACID WHOLE BLOOD 2021-12-20 09:25:00 Mario Johnson [facility] CBC WITH DIFF 2021-12-20 09:25:00 Ellie [facility] o [facility] BASIC METABOLIC PANEL (NA, 2021-12-20 09:25:00 EdKaylee saavedra [facility] K, CL, CO2, GLUCOSE, BUN, Medica l Branch CREATININE, CA) BASIC METABOLIC PANEL (NA, 2021-12-20 09:25:00 Kaylee Argueta U [facility] K, CL, CO2, GLUCOSE, BUN, Medica l Branch CREATININE, CA) CBC WITH DIFF 2021-12-20 09:25:[address] [facility] LACTIC ACID WHOLE BLOOD 2021-12-20 09:25:[address] [facility] POCT GLUCOSE (AUTOMATED) 2021-12-20 08:56:00 Ellie [facility] POCT GLUCOSE (AUTOMATED) 2021-12-20 08:56:00 Ellie [facility] POCT GLUCOSE (AUTOMATED) 2021-12-20 04:51:00 Ellie [facility] POCT GLUCOSE (AUTOMATED) 2021-12-20 04:51:00 Ellie [facility] URINALYSIS 2021-12-20 02:47:00 Alex [facility] URINALYSIS 2021-12-20 02:47:00 Alex [facility] POCT GLUCOSE (AUTOMATED) 2021-12-20 02:29:00 Alex [facility] POCT GLUCOSE (AUTOMATED) 2021-12-20 02:29:00 Alex [facility] HB ECG ROUTINE & RHYTHM 2021-12-20 00:33:[address] [facility] HB ECG ROUTINE & RHYTHM 2021-12-20 00:33:[address] [facility] URINALYSIS 2021-12-20 00:28:00 Alex [facility] URINE CULTURE 2021-12-20 00:28:00 Alex [facility] URINALYSIS 2021-12-20 00:28:00 Alex [facility] URINE CULTURE 2021-12-20 00:28:00 Alex [facility] CBC WITH DIFF 2021-12-20 00:25:00 Alex [facility] COMP. METABOLIC PANEL 2021-12-20 00:25:00 Alex [facility] ([id number]) Medical Branch LIPASE 2021-12-20 00:25:00 Alex [facility] LACTIC ACID WHOLE BLOOD 2021-12-20 00:25:[address] [facility] ACUTE CARE VENOUS BLOOD 2021-12-20 00:25:00 Alex [facility] BLOOD CULTURE SCREEN 2021-12-20 00:25:00 Alex [facility] BLOOD CULTURE SCREEN 2021-12-20 00:25:00 Alex [facility] LIPASE 2021-12-20 00:25:00 Alex [facility] COMP. METABOLIC PANEL 2021-12-20 00:25:00 Alex [facility] ([id number]) [facility] ACUTE CARE VENOUS BLOOD 2021-12-20 00:25:00 Alex [facility] CBC WITH DIFF 2021-12-20 00:25:00 Alex [facility] LACTIC ACID WHOLE BLOOD 2021-12-20 00:25:[address] [facility] EMERGENCY DEPARTMENT 2021-12-19 05:01:00 Doctor Unassigned, [facility] DOCUMENTS [place] [facility] HOSPITAL ADMISSION 2021-12-19 05:01:00 Doctor Unassigned, [facility] CBC WITH DIFF 2021-12-18 17:57:00 Mayank [facility] BASIC METABOLIC PANEL (NA, 2021-12-18 17:57:00 Jolynn Talley [facility] K, CL, CO2, GLUCOSE, BUN, Medica l Branch CREATININE, CA) MAGNESIUM 2021-12-18 17:57:00 Mayank [facility] MAGNESIUM 2021-12-18 17:57:00 Mayank [facility] BASIC METABOLIC PANEL (NA, 2021-12-18 17:57:00 Jolynn Talley [facility] K, CL, CO2, GLUCOSE, BUN, Medica l Branch CREATININE, CA) CBC WITH DIFF 2021-12-18 17:57:00 Jolynn Talley o f [facility] POCT GLUCOSE (AUTOMATED) 2021-12-18 16:49:00 Terminella, Thomas [facility] POCT GLUCOSE (AUTOMATED) 2021-12-18 16:49:00 Terminella, Thomas [facility] POCT GLUCOSE (AUTOMATED) 2021-12-18 12:56:00 Terminella, Thomas [facility] POCT GLUCOSE (AUTOMATED) 2021-12-18 12:56:00 Terminella, Thomas [facility] POCT GLUCOSE (AUTOMATED) 2021-12-18 09:41:00 Terminella, Thomas [facility] POCT GLUCOSE (AUTOMATED) 2021-12-18 09:41:00 Terminella, Thomas [facility] POCT GLUCOSE (AUTOMATED) 2021-12-18 05:08:00 Terminella, Thomas [facility] POCT GLUCOSE (AUTOMATED) 2021-12-18 05:08:00 Terminella, Thomas [facility] POCT GLUCOSE (AUTOMATED) 2021-12-18 01:26:00 Terminella, Thomas [facility] POCT GLUCOSE (AUTOMATED) 2021-12-18 01:26:00 Terminella, Thomas [facility] POCT GLUCOSE (AUTOMATED) 2021-12-17 21:41:00 Terminella, Thomas [facility] POCT GLUCOSE (AUTOMATED) 2021-12-17 21:41:00 Terminella, Thomas [facility] POCT GLUCOSE (AUTOMATED) 2021-12-17 17:07:00 Terminella, Thomas [facility] POCT GLUCOSE (AUTOMATED) 2021-12-17 17:07:00 Terminella, Thomas [facility] POCT GLUCOSE (AUTOMATED) 2021-12-17 14:01:00 Terminella, Thomas [facility] POCT GLUCOSE (AUTOMATED) 2021-12-17 14:01:00 Terminella, Thomas [facility] POCT GLUCOSE (AUTOMATED) 2021-12-17 09:18:00 Terminella, Thomas [facility] POCT GLUCOSE (AUTOMATED) 2021-12-17 09:18:00 Terminella, Thomas [facility] POCT GLUCOSE (AUTOMATED) 2021-12-17 01:43:00 Terminella, Thomas [facility] POCT GLUCOSE (AUTOMATED) 2021-12-17 01:43:00 Terminella, Thomas [facility] POCT GLUCOSE (AUTOMATED) 2021-12-16 21:24:00 AlbbessyamiVito [facility] POCT GLUCOSE (AUTOMATED) 2021-12-16 21:24:00 AlbbessyamiVito [facility] POCT GLUCOSE (AUTOMATED) 2021-12-16 16:25:00 AlbustamiVito [facility] POCT GLUCOSE (AUTOMATED) 2021-12-16 16:25:00 AlbVito cuenca [facility] URINALYSIS 2021-12-16 15:46:00 Talley, [facility] URINE CULTURE 2021-12-16 15:46:00 Talley, [facility] URINALYSIS 2021-12-16 15:46:00 Talley, [facility] URINE CULTURE 2021-12-16 15:46:00 Talley, [facility] POCT GLUCOSE (AUTOMATED) 2021-12-16 15:36:00 AlbVito cuenca [facility] POCT GLUCOSE (AUTOMATED) 2021-12-16 15:36:00 AlbbessyamiVito [facility] POCT GLUCOSE (AUTOMATED) 2021-12-16 14:25:00 AlbbessyamiVito [facility] POCT GLUCOSE (AUTOMATED) 2021-12-16 14:25:00 AlbVito cuenca Uni versity [facility] BASIC METABOLIC PANEL (NA, 2021-12-16 13:45:00 Albustami, Vito [facility] [place] [facility], CL, CO2, GLUCOSE, BUN, Medica l Branch CREATININE, CA) BASIC METABOLIC PANEL (NA, 2021-12-16 13:45:00 Albustami, Vito [facility] [place] [facility], CL, CO2, GLUCOSE, BUN, Medica l Branch CREATININE, CA) POCT GLUCOSE (AUTOMATED) 2021-12-16 13:34:00 Albustami, Vito [facility] vers[facility] POCT GLUCOSE (AUTOMATED) 2021-12-16 13:34:00 Albustami, [facility] 2021-12-16 13:05:05 [facility] CRITICAL CARE 2021-12-16 13:05:05 [facility] POCT GLUCOSE (AUTOMATED) 2021-12-16 12:23:00 AlbustamiVito Uni versity [facility] POCT GLUCOSE (AUTOMATED) 2021-12-16 12:23:00 Albustami, Vito [facility] vers[facility] POCT GLUCOSE (AUTOMATED) 2021-12-16 11:24:00 Albustami, Vito [facility] POCT GLUCOSE (AUTOMATED) 2021-12-16 11:24:00 Albustami, Vito [facility] vers[facility] POCT GLUCOSE (AUTOMATED) 2021-12-16 10:33:00 Albustami, Vito [facility] POCT GLUCOSE (AUTOMATED) 2021-12-16 10:33:00 Albustami, Vito [facility] versity [facility] BASIC METABOLIC PANEL (NA, 2021-12-16 09:32:00 Albustami, Vito [facility] [place] [facility], CL, CO2, GLUCOSE, BUN, Medica l Branch CREATININE, CA) BASIC METABOLIC PANEL (NA, 2021-12-16 09:32:00 Albustami, Vito [facility] [place] [facility], CL, CO2, GLUCOSE, BUN, Medica l Branch CREATININE, CA) POCT GLUCOSE (AUTOMATED) 2021-12-16 09:30:00 Albustami, Vito [facility] POCT GLUCOSE (AUTOMATED) 2021-12-16 09:30:00 Albustami, Vito [facility] POCT GLUCOSE (AUTOMATED) 2021-12-16 08:27:00 Albustami, Vito [facility] POCT GLUCOSE (AUTOMATED) 2021-12-16 08:27:00 Albbessyami, Vito [facility] POCT GLUCOSE (AUTOMATED) 2021-12-16 07:23:00 Albustami, Vito [facility] POCT GLUCOSE (AUTOMATED) 2021-12-16 07:23:00 Albustami, Vito [facility] POCT GLUCOSE (AUTOMATED) 2021-12-16 06:22:00 Albustami, Vito [facility] POCT GLUCOSE (AUTOMATED) 2021-12-16 06:22:00 AlbbessyamiVito [facility] BASIC METABOLIC PANEL (NA, 2021-12-16 05:30:00 Albustami, Vito [facility] [place] [facility], CL, CO2, GLUCOSE, BUN, Medica l Branch CREATININE, CA) BASIC METABOLIC PANEL (NA, 2021-12-16 05:30:00 Albustami, Vito [facility] [place] [facility], CL, CO2, GLUCOSE, BUN, Medica l Branch CREATININE, CA) POCT GLUCOSE (AUTOMATED) 2021-12-16 05:27:00 AlbVito cuenca [facility] POCT GLUCOSE (AUTOMATED) 2021-12-16 05:27:00 AlbustamiVito [facility] POCT GLUCOSE (AUTOMATED) 2021-12-16 04:23:00 Albustami, Vito [facility] POCT GLUCOSE (AUTOMATED) 2021-12-16 04:23:00 AlbustamiMarcellaar [facility] POCT GLUCOSE (AUTOMATED) 2021-12-16 03:19:00 Albustami, Vito [facility] POCT GLUCOSE (AUTOMATED) 2021-12-16 03:19:00 Albustami, Vito [facility] POCT GLUCOSE (AUTOMATED) 2021-12-16 02:24:00 AlbVito cuenca [facility] vers[facility] POCT GLUCOSE (AUTOMATED) 2021-12-16 02:24:00 AlbVito cuenca [facility] 2021-12-16 01:49:00 Albjoellen [facility] KETONES URINE 2021-12-16 01:49:00 [facility] BETA HYDROXY-BUTYRATE 2021-12-16 01:44:00 Talley, [facility]OL[facility] PANEL (NA, 2021-12-16 01:44:00 Albustami, Vito [facility] [place] [facility], CL, CO2, GLUCOSE, BUN, Medica l Branch CREATININE, CA) BETA HYDROXY-BUTYRATE 2021-12-16 01:44:00 Talley, [facility] BASIC METABOLIC PANEL (NA, 2021-12-16 01:44:00 Albustami, Vito [facility] [place] [facility], CL, CO2, GLUCOSE, BUN, Medica l Branch CREATININE, CA) POCT GLUCOSE (AUTOMATED) 2021-12-16 01:24:00 AlbustamiVito Uni versity [facility] POCT GLUCOSE (AUTOMATED) 2021-12-16 01:24:00 Albustami, Vito [facility] POCT GLUCOSE (AUTOMATED) 2021-12-16 00:18:00 AlbustamiVito [facility] POCT GLUCOSE (AUTOMATED) 2021-12-16 00:18:00 Albustami, Vito [facility] POCT GLUCOSE (AUTOMATED) 2021-12-15 22:56:00 Albustami, Vito [facility] POCT GLUCOSE (AUTOMATED) 2021-12-15 22:56:00 Albustami, Vito Uni vers[facility] BASIC METABOLIC PANEL (NA, 2021-12-15 22:03:00 Albustami, Vito [facility] [place] [facility], CL, CO2, GLUCOSE, BUN, Medica l Branch CREATININE, CA) BASIC METABOLIC PANEL (NA, 2021-12-15 22:03:00 Albustami, Vito [facility] [place] [facility], CL, CO2, GLUCOSE, BUN, Medica l Branch CREATININE, CA) POCT GLUCOSE (AUTOMATED) 2021-12-15 21:50:00 Albustami, Vito [facility] POCT GLUCOSE (AUTOMATED) 2021-12-15 21:50:00 Albustami, Vito [facility] POCT GLUCOSE (AUTOMATED) 2021-12-15 20:39:00 Albustami, Vito [facility] POCT GLUCOSE (AUTOMATED) 2021-12-15 20:39:00 Albustami, Vito [facility] POCT GLUCOSE (AUTOMATED) 2021-12-15 18:58:00 Albustami, Vito [facility] POCT GLUCOSE (AUTOMATED) 2021-12-15 18:58:00 Albustami, Vito [facility] BASIC METABOLIC PANEL (NA, 2021-12-15 17:46:00 Albustami, Vito [facility] [place] [facility], CL, CO2, GLUCOSE, BUN, Medica l Branch CREATININE, CA) BASIC METABOLIC PANEL (NA, 2021-12-15 17:46:00 Albustami, Vito [facility] [place] [facility], CL, CO2, GLUCOSE, BUN, Medica l Branch CREATININE, CA) POCT GLUCOSE (AUTOMATED) 2021-12-15 17:39:00 Albustami, Vito [facility] POCT GLUCOSE (AUTOMATED) 2021-12-15 17:39:00 Albustami, Vito [facility] POCT GLUCOSE (AUTOMATED) 2021-12-15 16:22:00 Albustami, Vito [facility] POCT GLUCOSE (AUTOMATED) 2021-12-15 16:22:00 Albustami, Vito [facility] POCT GLUCOSE (AUTOMATED) 2021-12-15 15:27:00 Albustami, Vito [facility] POCT GLUCOSE (AUTOMATED) 2021-12-15 15:27:00 Albustami, Vito [facility] POCT GLUCOSE (AUTOMATED) 2021-12-15 14:17:00 Albustami, Vito [facility] POCT GLUCOSE (AUTOMATED) 2021-12-15 14:17:00 Albjoellen [facility] CBC WITHOUT DIFF 2021-12-15 13:33:00 Albustdani [facility] CBC WITHOUT DIFF 2021-12-15 13:33:00 Albjoellen [facility] POCT GLUCOSE (AUTOMATED) 2021-12-15 13:20:00 Albustami [facility] POCT GLUCOSE (AUTOMATED) 2021-12-15 13:20:00 Albustami [facility] POCT GLUCOSE (AUTOMATED) 2021-12-15 12:13:00 Albustdani [facility] POCT GLUCOSE (AUTOMATED) 2021-12-15 12:13:00 Albjoellen [facility] XR CHEST 1 VW 2021-12-15 11:46:06 Albjoellen [facility] XR CHEST 1 VW 2021-12-15 11:46:06 Albjoellen [facility] MAGNESIUM 2021-12-15 10:54:00 [facility] MRSA / MSSA SCREEN BY PCR, 2021-12-15 10:54:00 Vito Mckeon [facility] BASIC METABOLIC PANEL (NA, 2021-12-15 10:54:00 Vito Mckeon [facility] K, CL, CO2, GLUCOSE, BUN, Medica l Branch CREATININE, CA) OSMOLALITY, SERUM OR 2021-12-15 10:54:00 Vito Mckeon [facility] PLASMA [facility] PHOSPHORUS 2021-12-15 10:54:00 Rosalind [facility] BETA HYDROXY-BUTYRATE 2021-12-15 10:54:00 Albjoellen [facility] PHOS[facility]US 2021-12-15 10:54:00 Albjoellen [facility] MAGNESIUM 2021-12-15 10:54:00 Albjoellen [facility] OSMOLALITY, SERUM OR 2021-12-15 10:54:00 Vito Mckeon [facility] PLASMA [facility] BETA HYDROXY-BUTYRATE 2021-12-15 10:54:00 [facility] BASIC MET[facility]OLIC PANEL (NA, 2021-12-15 10:54:00 Vito Mckeon [facility] K, CL, CO2, GLUCOSE, BUN, Medica l Branch CREATININE, CA) MRSA / MSSA SCREEN BY PCR, 2021-12-15 10:54:00 Vito Mckeon [facility] POCT GLUCOSE (AUTOMATED) 2021-12-15 10:53:00 Vito [facility] POCT GLUCOSE (AUTOMATED) 2021-12-15 10:53:00 Vito Mckeon [facility] POCT GLUCOSE (AUTOMATED) 2021-12-15 08:46:00 Jennifer Olivera [facility] POCT GLUCOSE (AUTOMATED) 2021-12-15 08:46:00 Jennifer Olivera [facility] POCT GLUCOSE (AUTOMATED) 2021-12-15 07:39:00 Jennifer Olivera [facility] POCT GLUCOSE (AUTOMATED) 2021-12-15 07:39:00 Jennifer Olivera [facility] POCT GLUCOSE (AUTOMATED) 2021-12-15 07:02:00 Jennifer Olivera [facility] POCT GLUCOSE (AUTOMATED) 2021-12-15 07:02:00 Jennifer Olivera [facility] POCT GLUCOSE (AUTOMATED) 2021-12-15 06:17:00 Jennifer Olivera [facility] POCT GLUCOSE (AUTOMATED) 2021-12-15 06:17:00 Jennifer Olivera [facility] AC PANEL 21 + LACTIC ACID 2021-12-15 05:36:00 Jennifer Olivera iversity [facility] AC PANEL 21 + LACTIC ACID 2021-12-15 05:36:00 Jennifer Olivera iversity [facility] POCT GLUCOSE (AUTOMATED) 2021-12-15 04:58:00 Jennifer Olivera [facility] POCT GLUCOSE (AUTOMATED) 2021-12-15 04:58:00 Jennifer Olivera [facility] CT ABDOMEN PELVIS W 2021-12-15 04:33:00 Jennifer Olivera [facility] CONTRAST [facility] CT ABDOMEN PELVIS W 2021-12-15 04:33:00 Jennifer Olivera [facility] CONTRAST [facility] COMP. METABOLIC PANEL 2021-12-15 04:20:00 Jennifer Olivera [facility] ([id number]) [facility] COMP. METABOLIC PANEL 2021-12-15 04:20:00 Jennifer Olivera [facility] ([id number]) [facility] CBC WITH DIFF 2021-12-15 03:14:00 Jennifer Olivera [facility] BLOOD CULTURE SCREEN 2021-12-15 03:14:00 Jennifer Olivera [facility] BLOOD CULTURE SCREEN 2021-12-15 03:14:00 Jennifer Olivera [facility] CBC WITH DIFF 2021-12-15 03:14:00 Jennifer Olivera [facility] ACTIVATED PARTIAL THRMPLAS 2021-12-15 03:13:00 [facility] 2021-12-15 03:13:00 [facility] LIPASE 2021-12-15 03:13:00 Jennifer Olivera [facility] TROPONIN I 2021-12-15 03:13:00 Jennifer Olivera [facility] N-TERMINAL PRO-BNP 2021-12-15 03:13:00 Jennifer Olivera [facility] LIPASE 2021-12-15 03:13:00 Jennifer Olivera [facility] TROPONIN I 2021-12-15 03:13:00 Jennifer Olivera [facility] PROTHROMBIN TIME / INR 2021-12-15 03:13:00 Jennifer [facility] ACTIVATED PARTIAL THRMPLAS 2021-12-15 03:13:00 Jennifer Olivera [facility] N-TERMINAL PRO-BNP 2021-12-15 03:13:00 Jennifer Olivera [facility] LACTIC ACID WHOLE BLOOD 2021-12-15 03:12:00 Jennifer Olivera [facility] LACTIC ACID WHOLE BLOOD 2021-12-15 03:12:00 Jennifer Olivera [facility] EKG-12 LEAD 2021-12-15 01:55:16 Doctor Unassigned, [facility] Name [facility] EKG-12 LEAD 2021-12-15 01:55:16 Doctor Unassigned, [facility] Name [facility] [place] EMERGENCY DEPARTMENT 2021-12-14 05:01:00 Doctor Unassigned, [facility] DOCUMENTS [place] [facility] [place] HOSPITAL ADMISSION 2021-12-14 05:01:00 Doctor Unassigned, [facility] BASIC METABOLIC PANEL (NA, 2021-11-28 09:31:00 [facility], CL, CO2, GLUCOSE, BUN, Medica l Branch CREATININE, CA) CBC WITH DIFF 2021-11-28 09:31:00 [facility] BASIC METABOLIC PANEL (NA, 2021-11-28 09:31:00 [facility] K, CL, CO2, GLUCOSE, BUN, Medica l Branch CREATININE, CA) CBC WITH DIFF 2021-11-28 09:31:00 [facility] BASIC METABOLIC PANEL (NA, 2021-11-27 08:57:00 [facility] K, CL, CO2, GLUCOSE, BUN, Medica l Branch CREATININE, CA) CBC WITH DIFF 2021-11-27 08:57:00 [facility] BASIC METABOLIC PANEL (NA, 2021-11-27 08:57:00 Leif [facility] K, CL, CO2, GLUCOSE, BUN, Medica l Branch CREATININE, CA) CBC WITH DIFF 2021-11-27 08:57:00 [facility] CBC WITH DIFF 2021-11-24 10:55:00 Courtney Mendes [facility] COMP. METABOLIC PANEL 2021-11-24 10:55:00 Courtney Mendes [facility] ([id number]) [facility] N-TERMINAL PRO-BNP 2021-11-24 10:55:00 Coutrney Mendes [facility] COMP. METABOLIC PANEL 2021-11-24 10:55:00 Cinthya jennifer [facility] ([id number]) [facility] CBC WITH DIFF 2021-11-24 10:55:00 Courtney Mendes [facility] N-TERMINAL PRO-BNP 2021-11-24 10:55:00 Courtney Mendes [facility] CBC WITH DIFF 2021-11-23 11:33:00 Carlene Weaver [facility] COMP. METABOLIC PANEL 2021-11-23 11:33:00 Cinthya jennifer [facility] ([id number]) [facility] N-TERMINAL PRO-BNP 2021-11-23 11:33:00 Cinthya jennifer [facility] MAGNESIUM 2021-11-23 11:33:00 Courtney Mendes [facility] MAGNESIUM 2021-11-23 11:33:00 Cinthya jennifer [facility] COMP. METABOLIC PANEL 2021-11-23 11:33:00 Courtney Mendes [facility] ([id number]) [facility] CBC WITH DIFF 2021-11-23 11:33:00 Carlene Weaver [facility] N-TERMINAL PRO-BNP 2021-11-23 11:33:00 Courtney Mendes [facility] ASPIRATE OR ABSCESS 2021-11-22 21:31:00 Imani Fleming [facility] CULTURE(AEROBIC/ANAEROBIC) Medic al Branch ASPIRATE OR ABSCESS 2021-11-22 21:31:00 Imani Fleming [facility] CULTURE(AEROBIC/ANAEROBIC) Medic al Branch PROTEIN CREAT RATIO URINE 2021-11-22 11:11:00 Courtney Mendes [facility] Medical Branch SODIUM, URINE RANDOM 2021-11-22 11:11:00 Courtney Mendes [facility] SODIUM, URINE RANDOM 2021-11-22 11:11:00 Courtney Mendes [facility] PROTEIN CREAT RATIO URINE 2021-11-22 11:11:00 [facility] XR CHEST 1 VW 2021-11-22 11:07:43 Courtney Mendes [facility] XR FOOT 3+ VW LEFT 2021-11-22 11:07:43 Courtney Mendes [facility] XR CHEST 1 VW 2021-11-22 11:07:43 Cinthya jennifer [facility] XR FOOT 3+ VW LEFT 2021-11-22 11:07:43 Courtney Mendes [facility] URINE DRUG (IMMUNOASSAY) - 2021-11-22 11:07:00 Courtney Mendes [facility] COMPREHENSIVE DRUG SCREEN Medic [facility] [place] URINE DRUG (LCMSMS) - 2021-11-22 11:07:00 Courtney Mendes [facility] OPIATES PANEL Medical Branch URINE DRUG (IMMUNOASSAY) - 2021-11-22 11:07:00 Courtney Mendes [facility] COMPREHENSIVE DRUG SCREEN [facility] (LCMSMS) - 2021-11-22 11:07:00 Courtney Mendes [facility] SYNTHETIC OPIATES PANEL [facility] Branch SEDIMENTATION RATE 2021-11-22 11:03:00 Courtney Mendes [facility] PROCALCITONIN 2021-11-22 11:03:00 Courtney Mendes [facility] CBC WITH DIFF 2021-11-22 11:03:00 Cinthya jennifer [facility] COMP. METABOLIC PANEL 2021-11-22 11:03:00 Courtney Mendes [facility] ([id number]) [facility] N-TERMINAL PRO-BNP 2021-11-22 11:03:00 Courtney Mendes [facility] MAGNESIUM 2021-11-22 11:03:00 Cinthya jennifer [facility] Branch PHOSPHORUS 2021-11-22 11:03:00 Cinthya [facility] CREATINE KINASE 2021-11-22 11:03:00 Cinthya [facility] VITAMIN D, 25-OH 2021-11-22 11:03:00 Cinthya [facility] VITAMIN B12, LEVEL 2021-11-22 11:03:00 Cinthya [facility] GLYCOSYLATED HEMOGLOBIN 2021-11-22 11:03:00 Cinthya [facility] PHOSPHORUS 2021-11-22 11:03:00 Cinthya [facility] CREATINE KINASE 2021-11-22 11:03:00 Cinthya [facility] MAGNESIUM 2021-11-22 11:03:00 Cinthya [facility] VITAMIN B12, LEVEL 2021-11-22 11:03:00 Cinthya [facility] COMP. METABOLIC PANEL 2021-11-22 11:03:00 Cinthya jennifer [facility] ([id number]) [facility] SEDIMENTATION RATE 2021-11-22 11:03:00 Cinthya [facility] CBC WITH DIFF 2021-11-22 11:03:00 Cinthya [facility] GLYCOSYLATED HEMOGLOBIN 2021-11-22 11:03:00 Cinthya [facility] N-TERMINAL PRO-BNP 2021-11-22 11:03:00 Cinthya [facility] VITAMIN D, 25-OH 2021-11-22 11:03:00 Cinthya [facility] PROCALCITONIN 2021-11-22 11:03:00 Cinthya [facility] CT ANGIOGRAM LOWER 2021-11-22 03:39:00 Jennifer Olivera [facility] EXTREMITY LEFT W CONTRAST Medica l Branch CT ANGIOGRAM LOWER 2021-11-22 03:39:00 Jennifer Olivera [facility] EXTREMITY LEFT W CONTRAST Medica l Branch CT HEAD WO CONTRAST 2021-11-22 03:25:00 Jennifer Olivera [facility] CT HEAD WO CONTRAST 2021-11-22 03:25:00 Jennifer Olivera [facility] URINALYSIS 2021-11-22 01:22:00 Jennifer Olivera [facility] URINE CULTURE 2021-11-22 01:22:00 Jennifer Olivera [facility] URINALYSIS 2021-11-22 01:22:00 Jennifer Olivera [facility] URINE CULTURE 2021-11-22 01:22:00 Jennifer Olivera [facility] CBC WITH DIFF 2021-11-22 00:58:00 Jennifer Olivera [facility] ACTIVATED PARTIAL THRMPLAS 2021-11-22 00:58:00 Jennifer Olivera [facility] PROTHROMBIN TIME / INR 2021-11-22 00:58:00 Jennifer Olivera [facility] COMP. METABOLIC PANEL 2021-11-22 00:58:00 Jennifer Olivera [facility] ([id number]) [facility] BLOOD CULTURE SCREEN 2021-11-22 00:58:00 Jennifer Olivera [facility] LACTIC ACID WHOLE BLOOD 2021-11-22 00:58:00 Jennifer Olivera [facility] N-TERMINAL PRO-BNP 2021-11-22 00:58:00 Courtney Mendes [facility] MAGNESIUM 2021-11-22 00:58:00 Cinthya jennifer [facility] PHOSPHORUS 2021-11-22 00:58:00 Citnhya jennifer [facility] FERRITIN SERUM 2021-11-22 00:58:00 Cinthya [facility] IRON PANEL 2021-11-22 00:58:00 Cinthya [facility] THYROID STIMULATING 2021-11-22 00:58:00 Courtney Mendes [facility] HORMONE [facility] LIPID PANEL ([id number])(TOTAL 2021-11-22 00:58:00 Courtney Mendes [facility] TRIGLY[facility], HDL) BLOOD CULTURE SCREEN 2021-11-22 00:58:00 Jennifer Olivera [facility] PHOSPHORUS 2021-11-22 00:58:00 Cinthya [facility] MAGNESIUM 2021-11-22 00:58:00 Cinthya [facility] FERRITIN SERUM 2021-11-22 00:58:00 Cinthya [facility] THYROID STIMULATING 2021-11-22 00:58:00 Courtney Mendes [facility] HORMONE [facility] Branch COMP. METABOLIC PANEL 2021-11-22 00:58:00 Jennifer Olivera [facility] ([id number]) [facility] [place] LIPID PANEL (26574)(TOTAL 2021-11-22 00:58:00 Courtney Mendes [facility] CHOLESTEROL, [facility] TRIGLYCERIDES, HDL) IRON PANEL 2021-11-22 00:58:00 Cinthya [facility] CBC WITH DIFF 2021-11-22 00:58:00 Jennifer Olivera [facility] PROTHROMBIN TIME / INR 2021-11-22 00:58:00 Jennifer Olivera [facility] ACTIVATED PARTIAL THRMPLAS 2021-11-22 00:58:00 Jennifer Olivera [facility] N-TERMINAL PRO-BNP 2021-11-22 00:58:00 Courtney Mendes [facility] LACTIC ACID WHOLE BLOOD 2021-11-22 00:58:00 Jennifer Olivera [facility] EMERGENCY DEPARTMENT 2021-11-21 05:01:00 Doctor Beto, [facility] DOCUMENTS [place] [facility] [place] [facility] ADM - [facility] 2021-11-21 05:01:00 Doctor Beto [facility] Name [facility] [place] [facility] ADMISSION 2021-11-21 05:01:00 Doctor Pérez [facility] Name [facility] [place] EMERGENCY DEPARTMENT 2021-11-21 05:01:00 Doctor Beto, [facility] DOCUMENTS [place] [facility] [place] [facility] ADM - MISC 2021-11-21 05:01:00 Doctor Beto [facility] Name [facility] [place] Spinal puncture, lumbar, 2021-10-24 20:30:00 Tony Gomez diagnostic; with fluoroscopic or CT guidance MAGNESIUM 2021-10-16 04:12:00 [facility] COMP. METABOLIC PANEL 2021-10-16 04:12:00 [facility] ([id number]) [facility] CBC WITH DIFF 2021-10-16 04:12:00 [facility] CT HEAD WO CONTRAST 2021-09-29 00:15:29 Roger Neff [facility] URINALYSIS 2021-09-28 23:53:00 Roger Neff [facility] COMP. METABOLIC PANEL 2021-09-28 23:52:00 Roger Neff [facility] ([id number]) [facility] CBC WITH DIFF 2021-09-28 23:52:00 Roger Neff [facility] XR CHEST 1 VW 2021-08-07 03:03:32 Courtney Mendes [facility] COMP. METABOLIC PANEL 2021-08-06 11:57:00 [facility] ([id number]) [facility] CBC WITH DIFF 2021-08-06 11:57:00 [facility] BASIC METABOLIC PANEL (NA, 2021-08-04 12:10:00 Kaylee Argueta [facility] K, CL, CO2, GLUCOSE, BUN, Medica l Branch CREATININE, CA) CBC WITH DIFF 2021-08-04 12:09:[address] [facility] URINALYSIS 2021-08-04 00:40:00 Hanh Gunter [facility] URINE CULTURE 2021-08-04 00:40:00 Hanh Gunter [facility] FECES CULTURE 2021-08-03 14:58:[address] [facility] OCCULT (GUAIAC) BLOOD 2021-08-03 14:58:00 [facility] 2021-08-03 [facility] FECAL PATHOGENS BY PCR 2021-08-03 14:58:00 [facility] URINE DRUG (IMMUNOASSAY) - 2021-08-03 10:11:00 Kaylee Argueta [facility] COMPREHENSIVE DRUG SCREEN Medica l Branch COVID-19 (ID NOW RAPID 2021-08-03 07:33:00 Lamine Serna [facility] TESTING) Medical Branch LAB ONLY COVID 2021-08-03 07:33:00 Lamine Serna [facility] INTERPRETATION [facility] COMP. METABOLIC PANEL 2021-08-03 06:18:00 Lamine Serna [facility] ([id number]) [facility] CBC WITH DIFF 2021-08-03 05:40:[address] [facility] URINALYSIS 2021-08-01 01:43:[address] [facility] LIPASE 2021-08-01 01:40:[address] [facility] COMP. METABOLIC PANEL 2021-08-01 01:40:00 Stephanie Balderrama [facility] ([id number]) [facility] CBC WITH DIFF 2021-08-01 01:38:[address] [facility] XR CHEST 1 VW 2021-07-31 23:40:[address] [facility] ASSIGNMENT OF BENEFITS 2021-07-31 22:05:40 Doctor Unassigned, [facility] NOTICE OF PRIVACY 2021-07-31 22:04:58 Doctor Sebleigned, [facility] PRACTICES [place] [facility] CONSENT/REFUSAL FOR 2021-07-31 22:04:33 Doctor Beto, [facility] DI[facility]NOSIS [facility] 2021-07-29 23:09:[address] [facility] BLOOD CULTURE SCREEN 2021-07-29 23:04:00 Lynette [facility] D-DIMER 2021-07-29 22:49:[address] [facility] COVID-19 (ID NOW RAPID 2021-07-29 22:48:00 Lynette Fonseca [facility] TESTING) Medical Branch COMP. METABOLIC PANEL 2021-07-29 22:17:00 Lynette Fonseca [facility] ([id number]) Medical Branch CBC WITH DIFF 2021-07-29 22:17:[address] [facility] XR CHEST 1 VW 2021-07-29 21:47:[address] [facility] COMP. METABOLIC PANEL 2021-06-07 22:20:00 Sidnye Sanford [facility] ([id number]) Medical Branch CBC WITH DIFF 2021-06-07 22:20:00 Singer [place] o [facility] CT ABDOMEN PELVIS WO 2020-11-21 00:39:40 Brittany Helms [facility] CONTRAST Medical Branch LIPASE 2020-11-21 00:06:00 Brittany Helms [facility] COMP. METABOLIC PANEL 2020-11-21 00:06:00 Brittany Helms Un [facility] ([id number]) Medical Branch CBC WITH DIFF 2020-11-21 00:06:00 Brittany Helms F [facility] URINALYSIS 2020-11-21 00:00:00 Sony Helmso F [facility] COVID-19 (ID NOW RAPID 2020-11-21 00:00:00 Brittany Helms U [facility] TESTING) Medical Branch Cholecystectomy [facility] 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 Plan of Care Planned Activity Planned Date Details Comments Source Future Scheduled 2022-07-[address] [facility]00 (procedure) [code = Medical Center [id number]] Future Scheduled 2022-07-[address] [facility] 00:00:00 (procedure) [code = Medical Center 80202405] Future Scheduled 2022-03-15 INFLUENZA VACCINE (#1) [facility]:00 [code = INFLUENZA Medical Ce nter VACCINE (#1)] Future Scheduled 2021-07-[address] [facility] 00:00:00 (12+) [code = Medical Center DEPRESSION SCREENING (12+)] Future Scheduled 2021-03-[address] [facility] 00:00:00 (Season Ended) [code = Medic al Center INFLUENZA VACCINE (Season Ended)] Future Scheduled 2020-07-[address] [facility] 00:00:00 (12+) [code = Medical Center DEPRESSION SCREENING (12+)] Future Scheduled 2019-10-[address] [facility] 00[facility]00 measurement Medical Center (procedure) [code = 02784522] Future Scheduled 2019-10-[address] [facility] 00:00:00 measurement Medical Center (procedure) [code = 79822401] Future Scheduled 2004 DTAP/TDAP/TD VACCINES [facility] 00:00:00 (1 - Tdap) [code = Medical C enter DTAP/TDAP/TD VACCINES (1 - Tdap)] Future Scheduled 2004 DTAP/TDAP/TD VACCINES [facility] 00:00:00 (1 - Tdap) [code = Medical C enter DTAP/TDAP/TD VACCINES (1 - Tdap)] Future Scheduled 2003 HEPATITIS C SCREENING [facility] 00:00:00 [code = HEPATITIS C Medical Center SCREENING] Future Scheduled 2003 HEPATITIS C [facility]CRE[facility]ING [facility] 00:00:00 [code = HEPATITIS C Medical Center SCREENING] Future Scheduled 1997 COVID-19 VACCINE (1) [facility] 00:00:00 [code = COVID-[address] VACCINE (1)] Future Scheduled 1995 DIABETIC EYE EXAM [facility] 00:00:00 [code = DIABETIC EYE Medical Center EXAM] Future Scheduled 1995 Urine screening for [facility] 00:00:00 protein (procedure) Medical Center [code = 849070439] Future Scheduled 1995 DIABETIC EYE EXAM [facility] 00:00:00 [code = DIABETIC EYE Medical Center EXAM] Future Scheduled 1995 Urine screening for [facility] Test 00:00:00 protein (procedure) Medical Center [code = 831502894] Future Scheduled [address] [facility] Test 00:00:00 0-64 YRS (1 of 1 - Medical C enter PPSV23) [code = PNEUMOCOCCAL VACCINE 0-64 YRS (1 of 1 - PPSV23)] Future Scheduled [address] [facility] Test 00:00:00 0-64 YRS (1 - PCV) Medical C enter [code = PNEUMOCOCCAL VACCINE 0-64 YRS (1 - PCV)] Future Scheduled 1985 COVID-19 VACCINE (#1) [facility] 00:00:00 [code = COVID-[address] VACCINE (#1)] Encounters Start End Encounter Admission Attending Care Care Encounter Source Date/Time Date/Time Type Type Clinicians Facility Department ID 2021-10-23 Outpatient [facility] [id number] [place] 08:22:27 0411 [facility] 2021-10-09 Outpatient [facility] [id number] [place] 11:10:01 0328 [facility] 2021-08-09 Outpatient Nichole, STLMLC STLMLC [id number] Common 13:45:16 Eren [id number] [facility] 2021-08-09 Outpatient Ncihole, STLMLC STLMLC [id number] Common 13:17:39 Eren [id number] [facility] 2021-08-09 Outpatient Nichole, STLMLC STLMLC [id number] Common 13:16:34 Eren [id number] [facility] 2022-06-25 2022-06-25 Outpatient R YUDI HOLLOWAY [facility] [id number] Univers 13:00:00 13:00:00 YUDI HOLLOWAY [id number] [facility] 2022-04-23 2022-04-23 Outpatient R BEVERLY [facility] [id number]-20 Univers 08:00:00 08:00:00 SARAH BETH [id number] [facility] 2022-04-04 2022-04-04 Outpatient R YUDI HOLLOWAY [facility] [id number] Univers 14:00:00 14:00:00 YUDI HOLLOWAY [id number] [facility] 2022-04-04 2022-04-04 Outpatient R AMIE BAGLEY [facility] [id number] Univers 14:00:00 14:00:00 AMIE BAGLEY ity [facility] 2022-04-02 2022-04-02 Outpatient R BEVERLY [facility] [id number] Univers 08:30:00 08:30:00 SARAH BETH [id number] ity [facility] 2022-04-02 2022-04-02 Outpatient R DELMISRODOLFO [facility] [id number] Univers 08:30:00 08:30:00 SARAH BETH ity [facility] 2022-03-12 2022-03-12 Outpatient R XUSharon [facility] [id number]-20 Univers 08:00:00 08:00:00 SARAH BETH [id number] ity [facility] 2022-03-12 2022-03-12 Outpatient R BEVERLY [facility] [id number] Univers 08:00:00 08:00:00 SARAH BETH ity [facility] 2022-03-02 2022-03-02 Outpatient R DELMISRODOLFO [facility] [id number]-20 Univers 11:30:00 11:30:00 SARAH BETH [id number] ity [facility] 2022-03-02 2022-03-02 Outpatient R BEVERLY [facility] [id number] Univers 11:30:00 11:30:00 SARAH BETH ity [facility] 2022-03-01 2022-03-01 Telephone ORION Golden 1.2.840.114 [id number] Univers 00:00:00 00:00:00 Vesta KING 350.1.13.10 i ty [facility] 4.2.7.2.686 Tim [id number] [address] 2022-03-01 2022-03-01 Telephone Jackson [facility] 1.2.604.764 [id number] Univers 00:00:00 00:00:00 Concetta NAVAPEC 350.1.13.10 ity [facility] 4.2.7.2.686 [facility] [id number] [facility] [place] 389 Branch [facility] 2022-02-26 2022-02-26 Transition DEVANTE Alvarado 1.2.840.114 [id number] Univers 00:00:00 00:00:00 of Care Kristie Johnson [place] 350.1.13.10 i ty of [place] [id number] [facility] 403 Branch 2022-02-14 2022-02-23 Inpatient RICARDO CONROY [facility] [id number] Univers 22:57:00 15:56:00 ity of [facility] 2022-02-14 2022-02-23 Hospital Vic Mcdonald 1.2.840. 114 [id number] Univers 22:57:00 15:56:00 Encounter Royer Brooke 350.1 .13.10 [facility] 4.2.7.2.686 [place] Adonis Talley [id number] Ricardo Alcaraz 095 Branch 2022-02-20 2022-02-20 Anesthesia Heide Abraham 1.2.84 0.114 [id number] Univers 11:25:00 12:55:00 Event Huy Singh 350.1.13.10 ity of HOSPITAL 4.2.7.2.686 Tim as [id number] [facility] 103 Branch 2022-02-20 2022-02-20 Surgery IVAN Paul 1.2.805.104 [id number] Univers 10:12:00 11:55:00 Sarah Beth SEALY 350.1.13.10 ity of HOSPITAL 4.2.7.2.686 Tim as [id number] [facility] 103 Branch 2022-02-14 2022-02-14 Travel 1.2.840.1 1.2.916.501 [id number] Univers 00:00:00 00:00:00 06930.1.1 350.1.13.10 ity of 3.104.2.7 [place].3.698 [place] .3.963201 084.8 Medica l .8 Branch 2022-02-12 2022-02-12 Transition Duane, 1.2.840.2 [id number] Univers 00:00:00 00:00:00 of Care Kamial 41276.1.1 i ty of 3.104.2.7 [place] .3.147572 Medica l .8 [place] 2022-02-06 2022-02-10 Inpatient X CATHLEEN [facility] [id number] Univers 18:31:00 18:27:00 [facility] 2022-[facility]-06 2022-02-10 [facility] Carlene Alcantara 1.2.840.1 [id number] Univers 18:31:00 18:27:00 Encounter JacobFarzad saavedralizet 27680.1.1 ity of Dileep Connolly 3.104.2.7 [place] .3.298277 Medica l .8 [place] 2022-02-07 2022-02-07 Outpatient [facility] [id number] [id number]-20 Univers 13:00:00 13:00:00 SHAHBAZ [id number] ity o [facility] 2022-02-07 2022-02-07 Outpatient [facility] [id number] Univers 13:00:00 13:00:00 SHAHBAZ saba o [facility] 2022-02-06 2022-02-06 Travel 1.2.840.1 1.2.158.938 [id number] Univers 00:00:00 00:00:00 69114.1.1 350.1.13.10 ity of 3.104.2.7 [place].3.698 [place] .3.255100 084.8 Medica l .8 [place] 2022-01-26 2022-01-26 Emergency X SINGER [facility] ERT [id number] Univers 17:06:00 23:29:00 [facility] 2022-01-26 2022-01-26 Emergency Randall Sands 1.2.840.1 [id number] Univers 17:06:00 23:29:00 Sidney Sanford 49158.1.1 ity of 3.104.2.7 [place] .3.993354 Medica l .8 [place] 2022-01-26 2022-01-26 Travel 1.2.840.1 1.2.128.186 [id number] Univers 00:00:00 00:00:00 26258.1.1 350.1.13.10 ity of 3.104.2.7 4.[place].7.3.698 [place] .3.557637 084.8 Medica l .8 [place] 2022-01-19 2022-01-19 Outpatient R [facility] [id number]-20 Univers 14:00:00 14:00:00 SHAHBAZ [id number] nathaniely o [facility] 2022-01-19 2022-01-19 Outpatient R [facility] [id number] Univers 14:00:00 14:00:00 SHAHBAZ saba o [facility] 2022-01-17 2022-01-17 Emergency X OLIVERA, [facility] ERT [id number] Univers 04:52:00 08:20:00 JENNIFER ity of [facility] 2022-01-17 2022-01-17 Emergency Jarod, 1.2.840.1 [id number] Univers 04:52:00 08:20:00 Jennifer 60452.1.1 ity of 3.104.2.7 [place] .3.923273 Medica l .8 [place] 2022-01-17 2022-01-17 Travel 1.2.840.1 1.2.740.829 [id number] Univers 00:00:00 00:00:00 55059.1.1 350.1.13.10 ity of 3.104.2.7 [place]7.3.698 [place] .3.261482 084.8 Medica l .8 [place] 2022-01-16 2022-01-16 Transition Zepeda, 1.2.840.5 [id number] Univers 00:00:00 00:00:00 of Care Kamila 76060.1.1 i ty of 3.104.2.7 [place] .3.041004 Medica l .8 [place] 2022-01-09 2022-01-12 Inpatient X CHITRA [facility] [id number] Univers 20:31:00 21:18:00 DOV ity of [facility] 2022-01-09 2022-01-12 [facility] Jennifer Olivera 1.2.840.1 [id number] Univers 20:31:00 21:18:00 Encounter Dontae Talley 04115.1.1 ity of Dov [place] 3.104.2.7 [place] .3.252990 Medica l .8 [place] 2022-01-10 2022-01-10 Transition [place], 1.2.840.8 [id number] Univers 00:00:00 00:00:00 of Care Kamila 27200.1.1 i ty of 3.104.2.7 [place] .3.767339 Medica l .8 [place] 2022-01-09 2022-01-09 Travel 1.2.840.1 1.2.877.357 [id number] Univers 00:00:00 00:00:00 25241.1.1 350.1.13.10 ity of 3.104.2.7 4.[place].7.3.698 [place] .3.388550 084.8 Medica l .8 [place] 2022-01-08 2022-01-08 Transition [place], 1.2.840.6 [id number] Univers 00:00:00 00:00:00 of Care Kamila 20571.1.1 i ty of 3.104.2.7 [place] .3.369267 Medica l .8 [place] 2022-01-04 2022-01-06 Inpatient X GEO [facility] [id number] Univers 22:21:00 16:16:00 NEGAR ity of [facility] 2022-01-04 2022-01-06 [facility] FerreiraVadim 1.2.840.5 [id number] Univers 22:21:00 16:16:00 Encounter Negar Guardado 95115.1.1 ity of 3.104.2.7 [place] .3.573061 Medica l .8 Branch 2022-01-04 2022-01-04 Travel 1.2.840.1 1.2.845.697 [id number] Univers 00:00:00 00:00:00 50075.1.1 350.1.13.10 ity of 3.104.2.7 4.[place].7.3.698 [place] .3.431075 084.8 Medica l .8 Branch 2021-12-19 2021-12-22 Outpatient X ELLIE, [facility] [id number] Univers 18:25:00 19:30:00 MERCY ity of [facility] 2021-12-19 2021-12-22 Emergency BettyDimitri mendozadanisha 1.2.840.1 [id number] [facility] 18:25:00 19:30:00 JacobtutuKaylee yun 86900.1.1 ity of 3.104.2.7 [place] .3.464525 Medica l .8 Branch 2021-12-20 2021-12-20 Travel 1.2.840.1 1.2.741.736 [id number] Univers 00:00:00 00:00:00 94867.1.1 350.1.13.10 ity of 3.104.2.7 4.2.7.3.698 [place] .3.065774 084.8 Medica l .8 Branch 2021-12-19 2021-12-19 Travel 1.2.840.1 1.2.263.591 [id number] Univers 00:00:00 00:00:00 37598.1.1 350.1.13.10 ity of 3.104.2.7 4.[place].7.3.698 [place] .3.976124 084.8 Medica l .8 Branch 2021-12-19 2021-12-19 Transition Alvarado, 1.2.840.2 [id number] Univers 00:00:00 00:00:00 of Heidy Johnson 28639.1.1 ity of 3.104.2.7 [place] .3.956272 Medica l .8 Branch 2021-12-14 2021-12-18 Inpatient X SHAIKH [facility] [id number] Univers 20:53:00 18:25:00 KIRIT itlizet o f [facility] 2021-12-14 2021-12-18 [facility] Jennifer Olivera 1.2.840.1 [id number] Univers 20:53:00 18:25:00 Encounter Vito Mckeon 54655.1.1 ity of [place], Thomas 3.104.2.7 [place] Burger, Daily H .3.595476 Medical Kirit Lara .8 Branch 2021-12-14 2021-12-14 Travel 1.2.840.1 1.2.937.200 [id number] Univers 00:00:00 00:00:00 27949.1.1 350.1.13.10 ity of 3.104.2.7 4[place].3.698 [place] .3.419198 084.8 Medica l .8 Branch 2021-11-29 2021-11-29 Transition Zepeda, 1.2.840.6 [id number] Univers 00:00:00 00:00:00 of Care Kamila 36716.1.1 i ty of 3.104.2.7 [place] .3.624546 Medica l .8 [place] 2021-11-21 2021-11-28 Inpatient X [facility] [id number] Univers 19:10:00 17:32:00 ADNAN ity of [facility] 2021-11-21 2021-11-28 [facility] Jarod Jennifer 1.2.840.1 [id number] Univers 19:10:00 17:32:00 Encounter Courtney Mendes 17625.1.1 ity of 3.104.2.7 [place] .3.513240 Medica l .8 Branch 2021-11-21 2021-11-21 Travel 1.2.840.1 1.2.033.469 [id number] Univers 00:00:00 00:00:00 06732.1.1 350.1.13.10 ity of 3.104.2.7 4[place]7.3.698 [place] .3.774443 084.8 Medica l .8 [place] 2021-10-24 2021-10-25 Observatio [facility] 5510 [id number] Memoria 12:00:00 22:50:00 n damaso Gomez 98 l [facility] 2021-10-24 2021-10-25 Outpatient Alexis, [facility] [id number] 07:00:00 17:50:00 [place] [address] 2021-10-24 2021-10-25 Outpatient U ALEXIS, [facility] 2097 [facility] 07:00:00 17:50:00 AKASH 2021-10-20 2021-10-20 Outpatient Alexis, [facility] [id number] 18:14:00 18:14:00 Akash Lyles 2021-10-15 2021-10-16 Emergency X [facility] ERT [id number] Univers 22:45:00 01:52:00 SIDNEY saba of [facility] 2021-10-15 2021-10-16 Emergency [facility] [id number] Univers 22:45:00 01:52:00 Sidney DURAN 350.1.13.10 [facility] 4.2.7.2.686 [facility] [id number] [facility] 084 [place] 2021-10-06 2021-10-10 Inpatient [facility] [id number] Memoria 05:12:00 15:30:00 r Jason 84 l [facility] 2021-10-06 2021-10-[address] [facility], [facility] [id number] 00:12:00 10:30:00 Josemanuel Chan 2021-10-06 2021-10-06 Emergency [facility] [id number] Memoria 02:51:00 02:51:00 damaso Gomez 83 l [facility] 2021-10-06 2021-10-06 Outpatient Danita, [facility] [id number] 00:12:00 00:12:00 Josemanuel Chan 2021-10-05 2021-10-05 Outpatient Danita, [facility] [id number] 21:51:00 21:51:00 Josemanuel Chan 2021-09-28 2021-09-28 Emergency X Roger NEFF [facility] ERT [id number] Univers 18:08:00 22:51:00 ity of [facility] 2021-09-28 2021-09-28 Emergency Roger Neff [facility] [id number] Univers 18:08:00 22:51:00 Cici DURAN 350.1.13.10 i ty of [place] 4.2.7.2.686 [facility] [id number] [facility] [address] 2021-08-09 2021-08-09 Transition DEVANTE Zepeda 1.2.840.114 [id number] Univers 00:00:00 00:00:00 of Care Kamila GILLESPIE 350.1.13.10 ity of [place] 4.2.7.2.686 [facility] [id number] [facility] [address] 2021-08-02 2021-08-08 Inpatient X [facility] MINA [id number] Univers 19:07:00 19:39:00 [facility] ity [facility] 2021-08-02 2021-08-08 [facility] 1.2.840. 114 [id number] Univers 19:07:00 19:39:00 Encounter Kaylee Argueta 350.1.13.10 ity [facility] 4.2.7.2.686 [facility] [id number] [facility] [address] 2021-07-31 2021-07-31 Emergency X JAMAL, [facility] ERT [id number] Univers 14:41:00 22:07:00 STEPHANIE saba [facility] 2021-07-31 2021-07-31 Emergency Cacsabi, [facility] [id number] Univers 14:41:00 22:07:00 Stephanie DURAN 350.1.13.10 ity of [place] 4.2.7.2.686 [facility] [id number] [address] 2021-07-29 2021-07-29 Emergency X RAYMUNDO [facility] ERT [id number] Univers 14:49:00 21:33:00 LYNETTE saba [facility] 2021-07-29 2021-07-29 Emergency [facility] [id number] Univers 14:49:00 21:33:00 Lynette DURAN 350.1.13.10 ity of [facility] 4.2.7.2.686 [facility] [id number] [address] 2021-07-11 2021-07-11 Laboratory Only, Ang Db Test [facility] 1.2.8 40.114 [id number] Univers 18:00:00 18:15:00 Only Toño Sierra [facility] 350.1.13.10 ity of [place] 4.2.7.2.686 Tim as VICENTA?BLEA [id number] [address] MEDICAL OFFICE BUILDING 2021-07-11 2021-07-11 [facility] [id number] Univers 18:00:00 18:00:00 SIERRA [facility] 2021-07-05 2021-07-05 ambulatory STLMLC STLMLC [id number] Common 00:00:00 00:00:00 [facility] 2021-07-04 2021-07-04 ambulatory STLMLC STLMLC [id number] Common 00:00:00 00:00:00 [facility] 2021-06-07 2021-06-07 Emergency X [facility] ERT [id number] Univers 15:54:00 18:34:00 SIDNEY saba [facility] 2021-06-07 2021-06-07 [facility] [id number] Univers 15:54:00 18:34:00 Sidney DURAN 350.1.13.10 i ty of [facility] 4.2.7.2.686 [facility] [id number] [address] 2021-04-25 2021-04-25 Outpatient STLMLC STLMLC [id number] Common 00:00:00 00:00:00 [facility] 2021-04-11 2021-04-11 Outpatient STLMLC STLMLC [id number] Common 00:00:00 00:00:00 [facility] 2021-02-21 2021-02-21 Outpatient STLMLC STLMLC [id number] Common 00:00:00 00:00:00 [facility] 2021-01-31 2021-01-31 Outpatient STLMLC STLMLC [id number] Common 00:00:00 00:00:00 [facility] 2021-01-03 2021-01-03 Outpatient STLMLC STLMLC [id number] Common 00:00:00 00:00:00 [facility] 2020-11-20 2020-11-20 Emergency [facility] 1.2.840.114 [id number] 18:22:00 22:21:00 Brittany Trujillo [place] 350.1.13.10 [place] 4.2.7.2.686 [place] [id number] [facility] 2020-11-20 2020-11-20 Emergency [facility] 1.2.840.114 [id number] [facility] 18:22:00 22:21:00 Brittany Trujillo [place] 350.1.13.10 ity of [place] 4.2.7.2.686 [facility] [id number] [address] 2020-11-20 2020-11-20 Emergency X [facility] ERT [id number] [facility] 18:22:00 18:22:00 FOLUSHO ity of [facility] 2019-03-02 2019-03-04 Phone nullFlavo MNA [id number] Memoria 16:11:26 04:59:59 Message r Neurosurger 08 l y [facility] 2019-03-02 2019-03-04 Phone nullFlavo MNA [id number] Memoria 16:11:26 04:59:59 Message r Neurosurger 08 l y [facility] 2019-03-02 2019-03-03 Outpatient MHMISCHER MHMISCHER [id number] 11:11:26 23:59:59 08 2019-02-10 2019-02-12 Phone nullFlavo MNA [id number] Memoria 16:16:47 04:59:59 Message r Neurosurger 07 l y [facility] 2019-02-10 2019-02-12 Phone nullFlavo MNA [id number] Memoria 16:16:47 04:59:59 Message r Neurosurger 07 l y [facility] 2019-02-10 2019-02-11 [id number] 11:16:47 23:59:59 2019-01-26 2019-01-28 Phone nullFlavo MNA [id number] Memoria 15:52:03 04:59:59 Message r Neurosurger 06 l y [facility] 2019-01-26 2019-01-28 Phone nullFlavo MNA [id number] Memoria 15:52:03 04:59:59 Message r Neurosurger 06 l y [facility] 2019-01-26 2019-01-27 [id number] 10:52:03 23:59:59 06 2019-01-01 2019-01-03 Phone nullFlavo MNA [id number] Memoria 18:55:03 04:59:59 Message r Neurosurger 05 l y [facility] 2019-01-01 2019-01-03 Phone nullFlavo MNA [id number] Memoria 18:55:03 04:59:59 Message r Neurosurger 05 l y [facility] 2019-01-01 2019-01-02 [facility] [id number] 13:55:03 23:59:59 2018-05-22 2018-05-22 Emergency nullFlavo [facility] [id number] Memoria 10:12:00 18:24:00 damaso Jason [address] [place] [address] 2018-05-22 2018-05-22 Emergency nullFlavo [facility] [id number] Memoria 10:12:00 18:24:00 damaos Roff [address] [place] [address] 2018-05-22 2018-05-22 Outpatient Neal [facility] [id number] 04:12:00 12:24:00 Zahra Ca 2018-02-18 2018-02-18 Out[facility] [id number] Common 11:15:00 11:15:[address] [facility] 2018-01-27 2018-01-27 Outpatient [facility] [id number] Common 11:30:00 11:30:[address] [facility] 2018-01-03 2018-01-03 Outpatient [facility] [id number] Common 15:41:00 15:41:[address] [facility] 2017-12-23 2017-12-23 Outpatient [facility] [id number] Common 15:42:00 15:42:[address] [facility] 2017-12-17 2017-12-17 Outpatient [facility] [id number] Common 11:00:00 11:00:[address] [facility] 2017-11-14 2017-11-19 Inpatient [facility] [id number] Memoria 22:40:00 17:28:[address] 2017-11-14 2017-11-19 [facility] [id number] Memoria 22:40:00 17:28:[address] 2017-11-14 2017-11-19 Outpatient Ruth Quesada [facility] [id number] 17:40:00 12:28:00 Percy 23 Results Test Description Test Time Test Comments Results Result Comments Source TISSUE CULTURE(AEROBIC/ANAEROBIC) 2022-02-23 20:34:19 Test Item Value Reference Range Interpretation Comme nts TISSUE CULTURE (test code = 33389-8) No aerobic/anaerobic organisms isolated Gram stain (test code = 664-3) No PMNs or Mononuclear cells observe d [facility] GLUCOSE (AUTOMATED)2022-02-23 18:36:41 Test Item Value Reference Range Interpretation Comments POCT GLU (test code = 3673387852) 162 mg/dL 70-110 H Lab Interpretation (test code = Abnormal 29949-9) [facility] GLUCOSE (AUTOMATED)2022-02-23 14:48:29 Test Item Value Reference Range Interpretation Comments POCT GLU (test code = 2249169438) 191 mg/dL 70-110 H Lab Interpretation (test code = Abnormal 78550-6) [facility] GLUCOSE (AUTOMATED)2022-02-23 10:56:47 Test Item Value Reference Range Interpretation Comments POCT GLU (test code = 8256270970) 242 mg/dL 70-110 H Lab Interpretation (test code = Abnormal 54352-8) [facility] GLUCOSE (AUTOMATED)2022-02-23 05:47:30 Test Item Value Reference Range Interpretation Comments POCT GLU (test code = 7356894783) 327 mg/dL 70-110 H Lab Interpretation (test code = Abnormal 77197-4) [facility] GLUCOSE (AUTOMATED)2022-02-23 02:18:34 Test Item Value Reference Range Interpretation Comments POCT GLU (test code = 1515853512) 309 mg/dL 70-110 H Lab Interpretation (test code = Abnormal 00211-0) [facility] GLUCOSE (AUTOMATED)2022-02-22 23:17:38 Test Item Value Reference Range Interpretation Comments POCT GLU (test code = 3952181555) 260 mg/dL 70-110 H Lab Interpretation (test code = Abnormal 95628-2) [facility] GLUCOSE (AUTOMATED)2022-02-22 18:33:41 Test Item Value Reference Range Interpretation Comments POCT GLU (test code = 9575414174) 264 mg/dL 70-110 H Lab Interpretation (test code = Abnormal 02068-9) [facility] GLUCOSE (AUTOMATED)2022-02-22 15:02:50 Test Item Value Reference Range Interpretation Comments POCT GLU (test code = 7659968631) 219 mg/dL 70-110 H Lab Interpretation (test code = Abnormal 74548-3) [facility] METABOLIC PANEL (NA, K, CL, CO2, GLUCOSE, BUN, CREATININE, CA)2022-02-22 10:44:27 Test Item Value Reference Range Interpretation Comments NA (test code = 132 mmol/L 135-145 L 0088664867) K (test code = 4.4 mmol/L 3.5-5 2180831451) CL (test code = 103 mmol/L 98-108 9051022019) CO2 TOTAL (test code = 25 mmol/L 23-31 6917657293) AGAP (test code = 2-16 4097450753) BUN (test code = 15 mg/dL 7-23 1040388727) GLUCOSE (test code = 262 mg/dL 70-110 H 0153337359) CREATININE (test code = 0.52 mg/dL 0.6-1.25 L 8436032139) CALCIUM (test code = 8.3 mg/dL 8.6-10.6 L 9034500461) eGFR (test code = mL/min/1.73m2 9590959436) ARPITA (test code = ARPITA) Association of [...] tests). Lab Interpretation Abnormal (test code = 40794-7) [facility] WITH [id number] 10:22:05 Test Item Value Reference Range Interpretation Comments WBC (test code = See_Comment [Automated 6690-2) message] The sy stem which generated this result transmitted reference range : 4.20 - 10.70 10*3/?L. The reference range was not used to interpret this result as normal/abnormal . RBC (test code = See_Comment L [Automated 789-8) message] The sy stem which generated this result transmitted reference range : 4.26 - 5.52 10*6/?L. The reference range was not used to interpret this result as normal/abnormal . HGB (test code = 10.5 g/dL 12.2-16.4 L 718-7) HCT (test code = 31.2 % 38.4-49.3 L 4544-3) MCV (test code = 88.9 fL 81.7-95.6 787-2) MCH (test code = 29.9 pg 26.1-32.7 785-6) MCHC (test code = 33.7 g/dL 31.2-35 786-4) RDW-SD (test code = 49.8 fL 38.5-51.6 24745-2) RDW-CV (test code = 15.9 % 12.1-15.4 H 788-0) PLT (test code = See_Comment H [Automated 777-3) message] The sy stem which generated this result transmitted reference range : 150 - 328 10*3/ ?L. The reference r boubacar was not used to interpret this result as normal/abnormal . MPV (test code = 10.4 fL 9.8-13 69283-2) NRBC/100 WBC (test See_Comment [Automat ed code = 8649584038) message] The system which generated this result transmitted reference range : 0.0 - 10.0 /100 WBCs. The refer ence range was not u sed to interpret th is result as normal/abnormal . NRBC x10^3 (test code See_Comment [Auto mated = 1959109318) message] The s ystem which generated this result transmitted reference range : 10*3/?L. The reference range was not used to interpret this result as normal/abnormal . GRAN MAT (NEUT) % 59.8 % (test code = 770-8) IMM GRAN % (test code 1.20 % = 7523577308) LYMPH % (test code = 28.2 % 736-9) MONO % (test code = 8.4 % 5905-5) EOS % (test code = 2.2 % 713-8) BASO % (test code = 0.2 % 706-2) GRAN MAT x10^3(ANC) 5.34 10*3/uL 1.99-6.95 (test code = 4565520063) IMM GRAN x10^3 (test 0.11 10*3/uL 0-0.06 H code = 3527647151) LYMPH x10^3 (test code 2.52 10*3/uL 1.09-3.23 = 731-0) MONO x10^3 (test code 0.75 10*3/uL 0.36-1.02 = 742-7) EOS x10^3 (test code = 0.20 10*3/uL 0.06-0.53 711-2) BASO x10^3 (test code 0.01-0.09 = 704-7) Lab Interpretation Abnormal (test code = 61040-3) [facility] GLUCOSE (AUTOMATED)2022-02-22 02:20:10 Test Item Value Reference Range Interpretation Comments POCT GLU (test code = 6669281472) 281 mg/dL 70-110 H Lab Interpretation (test code = Abnormal 84932-2) [facility] GLUCOSE (AUTOMATED)2022-02-21 22:27:37 Test Item Value Reference Range Interpretation Comments POCT GLU (test code = 9130418450) 187 mg/dL 70-110 H Lab Interpretation (test code = Abnormal 15741-7) [facility] GLUCOSE (AUTOMATED)2022-02-21 19:00:16 Test Item Value Reference Range Interpretation Comments POCT GLU (test code = 0746376570) 167 mg/dL 70-110 H Lab Interpretation (test code = Abnormal 60743-0) [facility] GLUCOSE (AUTOMATED)2022-02-21 19:00:16 Test Item Value Reference Range Interpretation Comments POCT GLU (test code = 6644872237) 167 mg/dL 70-110 H Lab Interpretation (test code = Abnormal 32063-1) [facility] GLUCOSE (AUTOMATED)2022-02-21 15:22:04 Test Item Value Reference Range Interpretation Comments POCT GLU (test code = 3539785283) 138 mg/dL 70-110 H Lab Interpretation (test code = Abnormal 77011-7) [facility] GLUCOSE (AUTOMATED)2022-02-21 15:22:04 Test Item Value Reference Range Interpretation Comments POCT GLU (test code = 0235903134) 138 mg/dL 70-110 H Lab Interpretation (test code = Abnormal 93418-1) [facility] GLUCOSE (AUTOMATED)2022-02-21 02:45:31 Test Item Value Reference Range Interpretation Comments POCT GLU (test code = 7688896807) 142 mg/dL 70-110 H Lab Interpretation (test code = Abnormal 33195-1) [facility] GLUCOSE (AUTOMATED)2022-02-21 02:45:31 Test Item Value Reference Range Interpretation Comments POCT GLU (test code = 2972645438) 142 mg/dL 70-110 H Lab Interpretation (test code = Abnormal 19937-4) [facility] GLUCOSE (AUTOMATED)2022-02-20 22:04:41 Test Item Value Reference Range Interpretation Comments POCT GLU (test code = 0923803596) 260 mg/dL 70-110 H Lab Interpretation (test code = Abnormal 68776-1) [facility] GLUCOSE (AUTOMATED)2022-02-20 22:04:41 Test Item Value Reference Range Interpretation Comments POCT GLU (test code = 5203847559) 260 mg/dL 70-110 H Lab Interpretation (test code = Abnormal 99127-1) [facility] # 21:01:35 Test Item Value Reference Range Interpretation Comments Blood Culture-Aerobic No organisms No growth Previo us (test code = 51360-3) isolated prelim inary verified result was Culture In Progress on 02/15/2022 at 190 1 CDTPrevious preliminary verified result was No growth a t 24 hours on 02/16/2022 at 160 1 CDTPrevious preliminary verified result was No growth a t 48 hours on 02/17/2022 at 160 1 CDTPrevious preliminary verified result was No growth a t 72 hours on 02/18/2022 at 160 1 CDT Blood No organisms No growth Previous Culture-Anaerobic isolated preliminar y (test code = 07911-7) verifi ed result was Culture In Progress on 02/15/2022 at 190 1 CDTPrevious preliminary verified result was No growth a t 24 hours on 02/16/2022 at 160 1 CDTPrevious preliminary verified result was No growth a t 48 hours on 02/17/2022 at 160 1 CDTPrevious preliminary verified result was No growth a t 72 hours on 02/18/2022 at 160 1 CDT Lab Interpretation Normal (test code = 17090-1) [facility] - Peripheral Kyth1961-05-81 21:01:35 Test Item Value Reference Range Interpretation Comments Blood Culture-Aerobic No organisms No growth Previo us (test code = 25129-2) isolated prelim inary verified result was Culture In Progress on 02/15/2022 at 190 1 CDTPrevious preliminary verified result was No growth a t 24 hours on 02/16/2022 at 160 1 CDTPrevious preliminary verified result was No growth a t 48 hours on 02/17/2022 at 160 1 CDTPrevious preliminary verified result was No growth a t 72 hours on 02/18/2022 at 160 1 CDT Blood No organisms No growth Previous Culture-Anaerobic isolated preliminar y (test code = 57033-1) verifi ed result was Culture In Progress on 02/15/2022 at 190 1 CDTPrevious preliminary verified result was No growth a t 24 hours on 02/16/2022 at 160 1 CDTPrevious preliminary verified result was No growth a t 48 hours on 02/17/2022 at 160 1 CDTPrevious preliminary verified result was No growth a t 72 hours on 02/18/2022 at 160 1 CDT Lab Interpretation Normal (test code = 41376-5) [facility] Culture - Peripheral Vein # 21:01:35 Test Item Value Reference Range Interpretation Comments Blood Culture-Aerobic No organisms No growth Previo us (test code = 60227-4) isolated prelim inary verified result was Culture In Progress on 02/15/2022 at 190 1 CDTPrevious preliminary verified result was No growth a t 24 hours on 02/16/2022 at 160 1 CDTPrevious preliminary verified result was No growth a t 48 hours on 02/17/2022 at 160 1 CDTPrevious preliminary verified result was No growth a t 72 hours on 02/18/2022 at 160 1 CDT Blood No organisms No growth Previous Culture-Anaerobic isolated preliminar y (test code = 30753-0) verifi ed result was Culture In Progress on 02/15/2022 at 190 1 CDTPrevious preliminary verified result was No growth a t 24 hours on 02/16/2022 at 160 1 CDTPrevious preliminary verified result was No growth a t 48 hours on 02/17/2022 at 160 1 CDTPrevious preliminary verified result was No growth a t 72 hours on 02/18/2022 at 160 1 CDT Lab Interpretation Normal (test code = 79328-1) [facility] Culture - Peripheral [id number] 21:01:35 Test Item Value Reference Range Interpretation Comments Blood Culture-Aerobic No organisms No growth Previo us (test code = 47728-7) isolated prelim inary verified result was Culture In Progress on 02/15/2022 at 190 1 CDTPrevious preliminary verified result was No growth a t 24 hours on 02/16/2022 at 160 1 CDTPrevious preliminary verified result was No growth a t 48 hours on 02/17/2022 at 160 1 CDTPrevious preliminary verified result was No growth a t 72 hours on 02/18/2022 at 160 1 CDT Blood No organisms No growth Previous Culture-Anaerobic isolated preliminar y (test code = 02892-6) verifi ed result was Culture In Progress on 02/15/2022 at 190 1 CDTPrevious preliminary verified result was No growth a t 24 hours on 02/16/2022 at 160 1 CDTPrevious preliminary verified result was No growth a t 48 hours on 02/17/2022 at 160 1 CDTPrevious preliminary verified result was No growth a t 72 hours on 02/18/2022 at 160 1 CDT Lab Interpretation Normal (test code = 77438-8) [facility] GLUCOSE (AUTOMATED)2022-02-20 14:13:49 Test Item Value Reference Range Interpretation Comments POCT GLU (test code = 2925600012) 176 mg/dL 70-110 H Lab Interpretation (test code = Abnormal 17530-5) [facility] GLUCOSE (AUTOMATED)2022-02-20 14:13:49 Test Item Value Reference Range Interpretation Comments POCT GLU (test code = 2256899586) 176 mg/dL 70-110 H Lab Interpretation (test code = Abnormal 86262-5) [facility] GLUCOSE (AUTOMATED)2022-02-20 02:30:54 Test Item Value Reference Range Interpretation Comments POCT GLU (test code = 3210652557) 113 mg/dL 70-110 H Lab Interpretation (test code = Abnormal 43678-2) [facility] GLUCOSE (AUTOMATED)2022-02-20 02:30:54 Test Item Value Reference Range Interpretation Comments POCT GLU (test code = 5655955509) 113 mg/dL 70-110 H Lab Interpretation (test code = Abnormal 20296-9) [facility] GLUCOSE (AUTOMATED)2022-02-19 23:41:12 Test Item Value Reference Range Interpretation Comments POCT GLU (test code = 9274932523) 135 mg/dL 70-110 H Lab Interpretation (test code = Abnormal 90661-6) [facility] GLUCOSE (AUTOMATED)2022-02-19 23:41:12 Test Item Value Reference Range Interpretation Comments POCT GLU (test code = 3711530716) 135 mg/dL 70-110 H Lab Interpretation (test code = Abnormal 14670-9) [facility] GLUCOSE (AUTOMATED)2022-02-19 17:13:18 Test Item Value Reference Range Interpretation Comments POCT GLU (test code = 9257670489) 238 mg/dL 70-110 H Lab Interpretation (test code = Abnormal 60212-1) [facility] GLUCOSE (AUTOMATED)2022-02-19 17:13:18 Test Item Value Reference Range Interpretation Comments POCT GLU (test code = 7887787385) 238 mg/dL 70-110 H Lab Interpretation (test code = Abnormal 36517-6) [facility] GLUCOSE (AUTOMATED)2022-02-19 17:13:18 Test Item Value Reference Range Interpretation Comments POCT GLU (test code = 5867152314) 238 mg/dL 70-110 H Lab Interpretation (test code = Abnormal 94190-4) [facility] [id number] 16:50:53 Test Item Value Reference Range Interpretation Comments CRP (test code = 0.9 mg/dL See_Comment H [Automated message] 5522744889) The system [employer] generated this result transmit lester reference range : <=0.8. The refe rence range was not u sed to interpret th is result as normal/abnormal . Lab Interpretation (test Abnormal code = 74558-1) [facility] acute hospital-REACTIVE [id number] 16:50:53 Test Item Value Reference Range Interpretation Comments CRP (test code = 0.9 mg/dL See_Comment H [Automated message] 1193131245) The system [employer] generated this result transmit lester reference range : <=0.8. The refe rence range was not u sed to interpret th is result as normal/abnormal . Lab Interpretation (test Abnormal code = 21416-5) General acute hospital-REACTIVE [id number] 16:50:53 Test Item Value Reference Range Interpretation Comments CRP (test code = 0.9 mg/dL See_Comment H [Automated message] 6109307639) The system [employer] generated this result transmit lester reference range : <=0.8. The refe rence range was not u sed to interpret th is result as normal/abnormal . Lab Interpretation (test Abnormal code = 57350-6) [facility] GLUCOSE (AUTOMATED)2022-02-19 15:55:49 Test Item Value Reference Range Interpretation Comments POCT GLU (test code = 4729783865) 209 mg/dL 70-110 H Lab Interpretation (test code = Abnormal 26028-0) [facility] GLUCOSE (AUTOMATED)2022-02-19 15:55:49 Test Item Value Reference Range Interpretation Comments POCT GLU (test code = 0704251461) 209 mg/dL 70-110 H Lab Interpretation (test code = Abnormal 85724-9) [facility] GLUCOSE (AUTOMATED)2022-02-19 00:58:44 Test Item Value Reference Range Interpretation Comments POCT GLU (test code = 4200790811) 300 mg/dL 70-110 H Lab Interpretation (test code = Abnormal 72860-6) [facility] GLUCOSE (AUTOMATED)2022-02-19 00:58:44 Test Item Value Reference Range Interpretation Comments POCT GLU (test code = 1329583871) 300 mg/dL 70-110 H Lab Interpretation (test code = Abnormal 22921-3) [facility] GLUCOSE (AUTOMATED)2022-02-18 21:28:03 Test Item Value Reference Range Interpretation Comments POCT GLU (test code = 3793997205) 119 mg/dL 70-110 H Lab Interpretation (test code = Abnormal 54780-1) [facility] GLUCOSE (AUTOMATED)2022-02-18 21:28:03 Test Item Value Reference Range Interpretation Comments POCT GLU (test code = 8428040046) 119 mg/dL 70-110 H Lab Interpretation (test code = Abnormal 14144-3) [facility] GLUCOSE (AUTOMATED)2022-02-18 16:51:05 Test Item Value Reference Range Interpretation Comments POCT GLU (test code = 4589318137) 275 mg/dL 70-110 H Lab Interpretation (test code = Abnormal 47678-5) [facility] GLUCOSE (AUTOMATED)2022-02-18 16:51:05 Test Item Value Reference Range Interpretation Comments POCT GLU (test code = 1864156320) 275 mg/dL 70-110 H Lab Interpretation (test code = Abnormal 23891-3) [facility] METABOLIC PANEL (NA, K, CL, CO2, GLUCOSE, BUN, CREATININE, CA)2022-02-18 15:51:39 Test Item Value Reference Range Interpretation Comments NA (test code = 136 mmol/L 135-145 7850446555) K (test code = 3.7 mmol/L 3.5-5 8031633450) CL (test code = 111 mmol/L 98-108 H 3136483854) CO2 TOTAL (test code = 21 mmol/L 23-31 L 3498850376) AGAP (test code = 2-16 9303284597) BUN (test code = 9 mg/dL 7-23 0917514432) GLUCOSE (test code = 278 mg/dL 70-110 H 0193850396) CREATININE (test code = 0.46 mg/dL 0.6-1.25 L 7720484024) CALCIUM (test code = 8.2 mg/dL 8.6-10.6 L 7710095353) eGFR (test code = mL/min/1.73m2 3723177082) ARPITA (test code = ARPITA) Association of [...] tests). Lab Interpretation Abnormal (test code = 90508-3) [facility] METABOLIC PANEL (NA, K, CL, CO2, GLUCOSE, BUN, CREATININE, CA)2022-02-18 15:51:39 Test Item Value Reference Range Interpretation Comments NA (test code = 136 mmol/L 135-145 0364118289) K (test code = 3.7 mmol/L 3.5-5 4219921319) CL (test code = 111 mmol/L 98-108 H 2198485165) CO2 TOTAL (test code = 21 mmol/L 23-31 L 1508436130) AGAP (test code = 2-16 8724502202) BUN (test code = 9 mg/dL 7-23 2067802480) GLUCOSE (test code = 278 mg/dL 70-110 H 1451505936) CREATININE (test code = 0.46 mg/dL 0.6-1.25 L 4362221361) CALCIUM (test code = 8.2 mg/dL 8.6-10.6 L 8007005032) eGFR (test code = mL/min/1.73m2 7218159284) ARPITA (test code = ARPITA) Association of [...] tests). Lab Interpretation Abnormal (test code = 27232-6) [facility] GLUCOSE (AUTOMATED)2022-02-18 12:36:29 Test Item Value Reference Range Interpretation Comments POCT GLU (test code = 8248423975) 276 mg/dL 70-110 H Lab Interpretation (test code = Abnormal 25295-1) [facility] GLUCOSE (AUTOMATED)2022-02-18 12:36:29 Test Item Value Reference Range Interpretation Comments POCT GLU (test code = 3629793044) 276 mg/dL 70-110 H Lab Interpretation (test code = Abnormal 91157-4[facility] 01:29:51 Test Item Value Reference Range Interpretation Comments POCT GLU (test code = 6155508877) 289 mg/dL 70-110 H Lab Interpretation (test code = Abnormal 43515-2) [facility] GLUCOSE (AUTOMATED)2022-02-18 01:29:51 Test Item Value Reference Range Interpretation Comments POCT GLU (test code = 0151391777) 289 mg/dL 70-110 H Lab Interpretation (test code = Abnormal 41824-1) [facility] GLUCOSE (AUTOMATED)2022-02-17 21:24:38 Test Item Value Reference Range Interpretation Comments POCT GLU (test code = 0265436653) 173 mg/dL 70-110 H Lab Interpretation (test code = Abnormal 82764-7) [facility] GLUCOSE (AUTOMATED)2022-02-17 21:24:38 Test Item Value Reference Range Interpretation Comments POCT GLU (test code = 2313609352) 173 mg/dL 70-110 H Lab Interpretation (test code = Abnormal 78224-7) [facility] 16:50:49 Test Item Value Reference Range Interpretation Comments POCT GLU (test code = 2567116013) 279 mg/dL 70-110 H Lab Interpretation (test code = Abnormal 75397-1) [facility] GLUCOSE (AUTOMATED)2022-02-17 16:50:49 Test Item Value Reference Range Interpretation Comments POCT GLU (test code = 3870145007) 279 mg/dL 70-110 H Lab Interpretation (test code = Abnormal 71584-9) [facility] 13:31:23 Test Item Value Reference Range Interpretation Comments POCT GLU (test code = 1801754515) 281 mg/dL 70-110 H Lab Interpretation (test code = Abnormal 92729-0) [facility] 13:31:23 Test Item Value Reference Range Interpretation Comments POCT GLU (test code = 6983773962) 281 mg/dL 70-110 H Lab Interpretation (test code = Abnormal 96210-4) [facility] GLUCOSE (AUTOMATED)2022-02-17 10:02:35 Test Item Value Reference Range Interpretation Comments POCT GLU (test code = 1064020968) 339 mg/dL 70-110 H Lab Interpretation (test code = Abnormal 90271-0) [facility] GLUCOSE (AUTOMATED)2022-02-17 10:02:35 Test Item Value Reference Range Interpretation Comments POCT GLU (test code = 0660555377) 339 mg/dL 70-110 H Lab Interpretation (test code = Abnormal 92222-3) [facility] GLUCOSE (AUTOMATED)2022-02-17 06:33:22 Test Item Value Reference Range Interpretation Comments POCT GLU (test code = 7220142640) 295 mg/dL 70-110 H Lab Interpretation (test code = Abnormal 51441-6) [facility] GLUCOSE (AUTOMATED)2022-02-17 06:33:22 Test Item Value Reference Range Interpretation Comments POCT GLU (test code = 2530178944) 295 mg/dL 70-110 H Lab Interpretation (test code = Abnormal 29590-7) [facility] GLUCOSE (AUTOMATED)2022-02-17 01:54:18 Test Item Value Reference Range Interpretation Comments POCT GLU (test code = 4853411809) 258 mg/dL 70-110 H Lab Interpretation (test code = Abnormal 80231-0) [facility] GLUCOSE (AUTOMATED)2022-02-17 01:54:18 Test Item Value Reference Range Interpretation Comments POCT GLU (test code = 6133697378) 258 mg/dL 70-110 H Lab Interpretation (test code = Abnormal 51180-4) [facility] GLUCOSE (AUTOMATED)2022-02-16 23:03:09 Test Item Value Reference Range Interpretation Comments POCT GLU (test code = 8643789162) 286 mg/dL 70-110 H Lab Interpretation (test code = Abnormal 92661-1) [facility] GLUCOSE (AUTOMATED)2022-02-16 23:03:09 Test Item Value Reference Range Interpretation Comments POCT GLU (test code = 9488088605) 286 mg/dL 70-110 H Lab Interpretation (test code = Abnormal 67044-6) [facility] GLUCOSE (AUTOMATED)2022-02-16 20:48:08 Test Item Value Reference Range Interpretation Comments POCT GLU (test code = 0965871000) 249 mg/dL 70-110 H Lab Interpretation (test code = Abnormal 11388-0) [facility] GLUCOSE (AUTOMATED)2022-02-16 20:48:08 Test Item Value Reference Range Interpretation Comments POCT GLU (test code = 9379591593) 249 mg/dL 70-110 H Lab Interpretation (test code = Abnormal 37914-2) [facility] [id number] 17:01:47 Test Item Value Reference Range Interpretation Comments BOH (test code = 1.0 mmol/L 1929315594) ARPITA (test code = Normal Ranges: ? ? ARPITA) Nonfasting ? Less than 0.1 mmol/L ? ? Overnight Fast ? ? ? Less than 0.4 mmol/L ? ? Fasting (1-2 weeks) ?6-8 mmol/L Test developed and characteristics determined by [facility] Laboratory Services. [facility] [id number] 17:01:47 Test Item Value Reference Range Interpretation Comments BOH (test code = 1.0 mmol/L 7433423045) ARPITA (test code = Normal Ranges: ? ? ARPITA) Nonfasting ? Less than 0.1 mmol/L ? ? Overnight Fast ? ? ? Less than 0.4 mmol/L ? ? Fasting (1-2 weeks) ?6-8 mmol/L Test developed and characteristics determined by [facility] Laboratory Services. [facility] [id number] 17:01:47 Test Item Value Reference Range Interpretation Comments BOH (test code = 1.0 mmol/L 1054781870) ARPITA (test code = Normal Ranges: ? ? ARPITA) Nonfasting ? Less than 0.1 mmol/L ? ? Overnight Fast ? ? ? Less than 0.4 mmol/L ? ? Fasting (1-2 weeks) ?6-8 mmol/L Test developed and characteristics determined by [facility] Laboratory Services. [facility] GLUCOSE (AUTOMATED)2022-02-16 16:42:59 Test Item Value Reference Range Interpretation Comments POCT GLU (test code = 7677753492) 264 mg/dL 70-110 H Lab Interpretation (test code = Abnormal 00244-2) [facility] GLUCOSE (AUTOMATED)2022-02-16 16:42:59 Test Item Value Reference Range Interpretation Comments POCT GLU (test code = 6604010168) 264 mg/dL 70-110 H Lab Interpretation (test code = Abnormal 59362-4) [facility] Metabolic Panel (Na, K, Cl, CO2, Glucose, BUN, Creatinine, Ca)2022-02-16 16:16:20 Test Item Value Reference Range Interpretation Comments NA (test code = 137 mmol/L 135-145 4326636686) K (test code = 3.5 mmol/L 3.5-5 5615556638) CL (test code = 115 mmol/L 98-108 H 0836976883) CO2 TOTAL (test code = 17 mmol/L 23-31 L 4897394286) AGAP (test code = 2-16 5192941511) BUN (test code = 5 mg/dL 7-23 L 0401047609) GLUCOSE (test code = 271 mg/dL 70-110 H 1431186492) CREATININE (test code = 0.45 mg/dL 0.6-1.25 L 7004941936) CALCIUM (test code = 8.5 mg/dL 8.6-10.6 L 2112672168) eGFR (test code = mL/min/1.73m2 7170815392) ARPITA (test code = ARPITA) Association of [...] tests). Lab Interpretation Abnormal (test code = 54675-3) [facility] Metabolic Panel (Na, K, Cl, CO2, Glucose, BUN, Creatinine, Ca)2022-02-16 16:16:20 Test Item Value Reference Range Interpretation Comments NA (test code = 137 mmol/L 135-145 6105687666) K (test code = 3.5 mmol/L 3.5-5 1410237134) CL (test code = 115 mmol/L 98-108 H 4016512158) CO2 TOTAL (test code = 17 mmol/L 23-31 L 0815245091) AGAP (test code = 2-16 9037908267) BUN (test code = 5 mg/dL 7-23 L 7835387797) GLUCOSE (test code = 271 mg/dL 70-110 H 7199973972) CREATININE (test code = 0.45 mg/dL 0.6-1.25 L 0727354249) CALCIUM (test code = 8.5 mg/dL 8.6-10.6 L 8400163102) eGFR (test code = mL/min/1.73m2 3916675344) ARPITA (test code = ARPITA) Association of [...] tests). Lab Interpretation Abnormal (test code = 22758-0) [facility] GLUCOSE (AUTOMATED)2022-02-16 14:21:27 Test Item Value Reference Range Interpretation Comments POCT GLU (test code = 3745117327) 286 mg/dL 70-110 H Lab Interpretation (test code = Abnormal 02203-2) [facility] GLUCOSE (AUTOMATED)2022-02-16 14:21:27 Test Item Value Reference Range Interpretation Comments POCT GLU (test code = 8800754076) 286 mg/dL 70-110 H Lab Interpretation (test code = Abnormal 80349-5) [facility] DNA [id number] 13:29:25 Test Item Value Reference Range Interpretation Comments Coagulase Negative Positive Negative, See A Staphylococcus (test Comment/Narrative code = 20024-9) ARPITA (test code = ARPITA) Coagulase negative Staphylococcus (CoNS) detected by DNA probe. ?CoNS often contaminate blood cultures from skin colonization during phlebotomy. ?Preferred management is to repeat blood cultures, and monitor off antibiotics. ?Contamination is suggested by culture growth after 48 hours, or growth in single culture (i.e., one of two sets). ?True bacteremia is suggested by the fever, hypotension, and leukocytosis that are not explained by an alternative infection, or indwelling foreign devices that appear infected (catheters, lines, or prostheses). Consider Infectious Diseases consultation if differentiation of CoNS bacteremia from contamination is uncertain. If clinical context suggests true bacteremia, preferred therapy is vancomycin. Please contact the Antimicrobial Stewardship Program with questions.Pager: ?[phone] Testing included eleven identification and three resistance marker targets. Lab Interpretation Abnormal (test code = 50494-4) [facility] POSITIVE BLOOD PATHOGENS DNA [id number] 13:29:25 Test Item Value Reference Range Interpretation Comments Coagulase Negative Positive Negative, See A Staphylococcus (test Comment/Narrative code = 51281-8) ARPITA (test code = ARPITA) Coagulase negative Staphylococcus (CoNS) detected by DNA probe. ?CoNS often contaminate blood cultures from skin colonization during phlebotomy. ?Preferred management is to repeat blood cultures, and monitor off antibiotics. ?Contamination is suggested by culture growth after 48 hours, or growth in single culture (i.e., one of two sets). ?True bacteremia is suggested by the fever, hypotension, and leukocytosis that are not explained by an alternative infection, or indwelling foreign devices that appear infected (catheters, lines, or prostheses). Consider Infectious Diseases consultation if differentiation of CoNS bacteremia from contamination is uncertain. If clinical context suggests true bacteremia, preferred therapy is vancomycin. Please contact the Antimicrobial Stewardship Program with questions.Pager: ?[phone] Testing included eleven identification and three resistance marker targets. Lab Interpretation Abnormal (test code = 77832-8) [facility] POSITIVE BLOOD PATHOGENS DNA [id number] 13:29:25 Test Item Value Reference Range Interpretation Comments Coagulase Negative Positive Negative, See A Staphylococcus (test Comment/Narrative code = 91857-9) ARPITA (test code = ARPITA) Coagulase negative Staphylococcus (CoNS) detected by DNA probe. ?CoNS often contaminate blood cultures from skin colonization during phlebotomy. ?Preferred management is to repeat blood cultures, and monitor off antibiotics. ?Contamination is suggested by culture growth after 48 hours, or growth in single culture (i.e., one of two sets). ?True bacteremia is suggested by the fever, hypotension, and leukocytosis that are not explained by an alternative infection, or indwelling foreign devices that appear infected (catheters, lines, or prostheses). Consider Infectious Diseases consultation if differentiation of CoNS bacteremia from contamination is uncertain. If clinical context suggests true bacteremia, preferred therapy is vancomycin. Please contact the Antimicrobial Stewardship Program with questions.Pager: ?[phone] Testing included eleven identification and three resistance marker targets. Lab Interpretation Abnormal (test code = 89853-7) [facility] GLUCOSE (AUTOMATED)2022-02-16 13:03:22 Test Item Value Reference Range Interpretation Comments POCT GLU (test code = 1249776510) 307 mg/dL 70-110 H Lab Interpretation (test code = Abnormal 73710-4) [facility] GLUCOSE (AUTOMATED)2022-02-16 13:03:22 Test Item Value Reference Range Interpretation Comments POCT GLU (test code = 6663612316) 307 mg/dL 70-110 H Lab Interpretation (test code = Abnormal 22699-9) [facility] GLUCOSE (AUTOMATED)2022-02-16 09:05:19 Test Item Value Reference Range Interpretation Comments POCT GLU (test code = 5854785874) 326 mg/dL 70-110 H Lab Interpretation (test code = Abnormal 85389-4) [facility] GLUCOSE (AUTOMATED)2022-02-16 09:05:19 Test Item Value Reference Range Interpretation Comments POCT GLU (test code = 6805157260) 326 mg/dL 70-110 H Lab Interpretation (test code = Abnormal 67211-9) [facility] GLUCOSE (AUTOMATED)2022-02-16 05:46:58 Test Item Value Reference Range Interpretation Comments POCT GLU (test code = 0993716090) 341 mg/dL 70-110 H Lab Interpretation (test code = Abnormal 47293-0) [facility] GLUCOSE (AUTOMATED)2022-02-16 05:46:58 Test Item Value Reference Range Interpretation Comments POCT GLU (test code = 9312232270) 341 mg/dL 70-110 H Lab Interpretation (test code = Abnormal 30064-1) [facility] GLUCOSE (AUTOMATED)2022-02-16 01:37:20 Test Item Value Reference Range Interpretation Comments POCT GLU (test code = 0604725526) 196 mg/dL 70-110 H Lab Interpretation (test code = Abnormal 99915-3) [facility] GLUCOSE (AUTOMATED)2022-02-16 01:37:20 Test Item Value Reference Range Interpretation Comments POCT GLU (test code = 5426462721) 196 mg/dL 70-110 H Lab Interpretation (test code = Abnormal 56869-5) [facility] GLUCOSE (AUTOMATED)2022-02-15 23:44:41 Test Item Value Reference Range Interpretation Comments POCT GLU (test code = 9670621306) 138 mg/dL 70-110 H Lab Interpretation (test code = Abnormal 51708-3) [facility] GLUCOSE (AUTOMATED)2022-02-15 23:44:41 Test Item Value Reference Range Interpretation Comments POCT GLU (test code = 2617696690) 138 mg/dL 70-110 H Lab Interpretation (test code = Abnormal 70947-9) [facility] Metabolic Panel (Na, K, Cl, CO2, Glucose, BUN, Creatinine, Ca)2022-02-15 23:12:45 Test Item Value Reference Range Interpretation Comments NA (test code = 138 mmol/L 135-145 4398537424) K (test code = 3.7 mmol/L 3.5-5 4251520026) CL (test code = 115 mmol/L 98-108 H 3784166029) CO2 TOTAL (test code = 17 mmol/L 23-31 L 4945472636) AGAP (test code = 2-16 3118913660) BUN (test code = 5 mg/dL 7-23 L 1332433708) GLUCOSE (test code = 86 mg/dL 70-110 7596841784) CREATININE (test code = 0.46 mg/dL 0.6-1.25 L 6978099372) CALCIUM (test code = 8.4 mg/dL 8.6-10.6 L 0188525066) eGFR (test code = mL/min/1.73m2 1824844554) ARPITA (test code = ARPITA) Association of [...] tests). Lab Interpretation Abnormal (test code = 39416-9) [facility] (Na, K, Cl, CO2, Glucose, BUN, Creatinine, Ca)2022-02-15 23:12:45 Test Item Value Reference Range Interpretation Comments NA (test code = 138 mmol/L 135-145 0795963722) K (test code = 3.7 mmol/L 3.5-5 2342414401) CL (test code = 115 mmol/L 98-108 H 4028105321) CO2 TOTAL (test code = 17 mmol/L 23-31 L 1849440757) AGAP (test code = 2-16 4319288699) BUN (test code = 5 mg/dL 7-23 L 4330994451) GLUCOSE (test code = 86 mg/dL 70-110 3368076285) CREATININE (test code = 0.46 mg/dL 0.6-1.25 L 0928781195) CALCIUM (test code = 8.4 mg/dL 8.6-10.6 L 7065458280) eGFR (test code = mL/min/1.73m2 6703678830) ARPITA (test code = ARPITA) Association of [...] tests). Lab Interpretation Abnormal (test code = 39282-6) [facility] GLUCOSE (AUTOMATED)2022-02-15 22:38:52 Test Item Value Reference Range Interpretation Comments POCT GLU (test code = 7069344198) 94 mg/dL 70-110 Lab Interpretation (test code = Normal 15132-0) [facility] GLUCOSE (AUTOMATED)2022-02-15 22:38:52 Test Item Value Reference Range Interpretation Comments POCT GLU (test code = 2036056117) 94 mg/dL 70-110 Lab Interpretation (test code = Normal 25125-1) [facility] GLUCOSE (AUTOMATED)2022-02-15 21:31:35 Test Item Value Reference Range Interpretation Comments POCT GLU (test code = 6641971237) 119 mg/dL 70-110 H Lab Interpretation (test code = Abnormal 78833-4) [facility] GLUCOSE (AUTOMATED)2022-02-15 21:31:35 Test Item Value Reference Range Interpretation Comments POCT GLU (test code = 2400503033) 119 mg/dL 70-110 H Lab Interpretation (test code = Abnormal 51593-9) [facility] GLUCOSE (AUTOMATED)2022-02-15 20:06:03 Test Item Value Reference Range Interpretation Comments POCT GLU (test code = 2209412574) 177 mg/dL 70-110 H Lab Interpretation (test code = Abnormal 10029-0) [facility] GLUCOSE (AUTOMATED)2022-02-15 20:06:03 Test Item Value Reference Range Interpretation Comments POCT GLU (test code = 4933247667) 177 mg/dL 70-110 H Lab Interpretation (test code = Abnormal 04862-0) [facility] GLUCOSE (AUTOMATED)2022-02-15 19:07:20 Test Item Value Reference Range Interpretation Comments POCT GLU (test code = 4370371378) 185 mg/dL 70-110 H Lab Interpretation (test code = Abnormal 09555-8) [facility] GLUCOSE (AUTOMATED)2022-02-15 19:07:20 Test Item Value Reference Range Interpretation Comments POCT GLU (test code = 1893507752) 185 mg/dL 70-110 H Lab Interpretation (test code = Abnormal 45621-0) [id number]:53 Test Item Value Reference Interpretation Comments Range TROPONIN I (test 0.000 ng/mL See_Comment [Automated code = 4164075028) message] The system which generated this result transmitted reference range : <=0.034. The reference range was not used to [...] biotin. Lab Interpretation Normal (test code = 26189-7) [facility] [id number] 18:44:53 Test Item Value Reference Interpretation Comments Range TROPONIN I (test 0.000 ng/mL See_Comment [Automated code = 7837252221) message] The system which generated this result transmitted reference range : <=0.034. The reference range was not used to [...] biotin. Lab Interpretation Normal (test code = 89386-7) [facility] [id number] 18:44:53 Test Item Value Reference Interpretation Comments Range TROPONIN I (test 0.000 ng/mL See_Comment [Automated code = 7145224013) message] The system which generated this result transmitted reference range : <=0.034. The reference range was not used to [...] biotin. Lab Interpretation Normal (test code = 39924-0) [facility] Metabolic Panel (Na, K, Cl, CO2, Glucose, BUN, Creatinine, Ca)2022-02-15 18:27:49 Test Item Value Reference Range Interpretation Comments NA (test code = 138 mmol/L 135-145 7416366236) K (test code = 3.7 mmol/L 3.5-5 9464656919) CL (test code = 115 mmol/L 98-108 H 6996754042) CO2 TOTAL (test code = 16 mmol/L 23-31 L 0642361651) AGAP (test code = 2-16 5278546769) BUN (test code = 7 mg/dL 7-23 7687437071) GLUCOSE (test code = 195 mg/dL 70-110 H 8668660065) CREATININE (test code = 0.52 mg/dL 0.6-1.25 L 3388781988) CALCIUM (test code = 8.2 mg/dL 8.6-10.6 L 1502332335) eGFR (test code = mL/min/1.73m2 9434355639) ARPITA (test code = ARPITA) Association of [...] tests). Lab Interpretation Abnormal (test code = 01080-1) [facility] Metabolic Panel (Na, K, Cl, CO2, Glucose, BUN, Creatinine, Ca)2022-02-15 18:27:49 Test Item Value Reference Range Interpretation Comments NA (test code = 138 mmol/L 135-145 9170231213) K (test code = 3.7 mmol/L 3.5-5 4628588025) CL (test code = 115 mmol/L 98-108 H 7207614081) CO2 TOTAL (test code = 16 mmol/L 23-31 L 7614730461) AGAP (test code = 2-16 9196494149) BUN (test code = 7 mg/dL 7-23 2764412658) GLUCOSE (test code = 195 mg/dL 70-110 H 9653102535) CREATININE (test code = 0.52 mg/dL 0.6-1.25 L 7489987312) CALCIUM (test code = 8.2 mg/dL 8.6-10.6 L 8942723352) eGFR (test code = mL/min/1.73m2 8572397028) ARPITA (test code = ARPITA) Association of [...] tests). Lab Interpretation Abnormal (test code = 98463-3) [id number] 17:43:01 Test Item Value Reference Range Interpretation Comments BOH (test code = 3.3 mmol/L 8946957725) ARPITA (test code = Normal Ranges: ? ? ARPITA) Nonfasting ? Less than 0.1 mmol/L ? ? Overnight Fast ? ? ? Less than 0.4 mmol/L ? ? Fasting (1-2 weeks) ?6-8 mmol/L Test developed and characteristics determined by [facility] Laboratory Services. [facility]ahydroxy-Ppsekpem3859-30-37 17:43:01 Test Item Value Reference Range Interpretation Comments BOH (test code = 3.3 mmol/L 9268713922) ARPITA (test code = Normal Ranges: ? ? ARPITA) Nonfasting ? Less than 0.1 mmol/L ? ? Overnight Fast ? ? ? Less than 0.4 mmol/L ? ? Fasting (1-2 weeks) ?6-8 mmol/L Test developed and characteristics determined by [facility] Laboratory Services. [facility] 17:29:05 Test Item Value Reference Range Interpretation Comments POCT GLU (test code = 7754373507) 192 mg/dL 70-110 H Lab Interpretation (test code = Abnormal 33093-5) [facility] GLUCOSE (AUTOMATED)2022-02-15 17:29:05 Test Item Value Reference Range Interpretation Comments POCT GLU (test code = 0594959054) 192 mg/dL 70-110 H Lab Interpretation (test code = Abnormal 29167-2) [facility] [id number] 16:28:42 Test Item Value Reference Range Interpretation Comments OSMOLALITY (test code = See_Comment H [Au tomated message] 2692-2) The system [employer] generated this result transmitted ref erence range: 278 - 30 5 mOsm/kg. The reference range was not used to int erpret this result as normal/abnormal . Lab Interpretation (test Abnormal code = 47609-9) [facility] [id number] 16:28:42 Test Item Value Reference Range Interpretation Comments OSMOLALITY (test code = See_Comment H [Au tomated message] 2692-2) The system [employer] generated this result transmitted ref erence range: 278 - 30 5 mOsm/kg. The reference range was not used to int erpret this result as normal/abnormal . Lab Interpretation (test Abnormal code = 66812-2) [facility] [id number] 16:28:42 Test Item Value Reference Range Interpretation Comments OSMOLALITY (test code = See_Comment H [Au tomated message] 2692-2) The system [employer] generated this result transmitted ref erence range: 278 - 30 5 mOsm/kg. The reference range was not used to int erpret this result as normal/abnormal . Lab Interpretation (test Abnormal code = 72278-8) [facility] Metabolic Panel (Na, K, Cl, CO2, Glucose, BUN, Creatinine, Ca)2022-02-15 16:02:27 Test Item Value Reference Range Interpretation Comments NA (test code = 138 mmol/L 135-145 8548870789) K (test code = 3.7 mmol/L 3.5-5 0441939018) CL (test code = 117 mmol/L 98-108 H 3734621636) CO2 TOTAL (test code = 15 mmol/L 23-31 L 8882055407) AGAP (test code = 2-16 2814522445) BUN (test code = 7 mg/dL 7-23 1990264575) GLUCOSE (test code = 204 mg/dL 70-110 H 4022049120) CREATININE (test code = 0.41 mg/dL 0.6-1.25 L 9459650694) CALCIUM (test code = 8.3 mg/dL 8.6-10.6 L 3261052165) eGFR (test code = mL/min/1.73m2 1418899309) ARPITA (test code = ARPITA) Association of [...] tests). Lab Interpretation Abnormal (test code = 91666-2) [facility] Metabolic Panel (Na, K, Cl, CO2, Glucose, BUN, Creatinine, Ca)2022-02-15 16:02:27 Test Item Value Reference Range Interpretation Comments NA (test code = 138 mmol/L 135-145 7822803253) K (test code = 3.7 mmol/L 3.5-5 4031561034) CL (test code = 117 mmol/L 98-108 H 9102069545) CO2 TOTAL (test code = 15 mmol/L 23-31 L 2538266365) AGAP (test code = 2-16 5906995879) BUN (test code = 7 mg/dL 7-23 4709109408) GLUCOSE (test code = 204 mg/dL 70-110 H 6300574323) CREATININE (test code = 0.41 mg/dL 0.6-1.25 L 0829943091) CALCIUM (test code = 8.3 mg/dL 8.6-10.6 L 4883512466) eGFR (test code = mL/min/1.73m2 3848047262) ARPITA (test code = ARPITA) Association of [...] tests). Lab Interpretation Abnormal (test code = 32338-0) [facility] GLUCOSE (AUTOMATED)2022-02-15 15:54:35 Test Item Value Reference Range Interpretation Comments POCT GLU (test code = 3014498664) 200 mg/dL 70-110 H Lab Interpretation (test code = Abnormal 51025-1) [facility] GLUCOSE (AUTOMATED)2022-02-15 15:54:35 Test Item Value Reference Range Interpretation Comments POCT GLU (test code = 6763348960) 200 mg/dL 70-110 H Lab Interpretation (test code = Abnormal 99036-0) [facility] GLUCOSE (AUTOMATED)2022-02-15 14:57:17 Test Item Value Reference Range Interpretation Comments POCT GLU (test code = 8506007066) 211 mg/dL 70-110 H Lab Interpretation (test code = Abnormal 01114-5) [facility] GLUCOSE (AUTOMATED)2022-02-15 14:57:17 Test Item Value Reference Range Interpretation Comments POCT GLU (test code = 4931426255) 211 mg/dL 70-110 H Lab Interpretation (test code = Abnormal 97174-2) [facility] GLUCOSE (AUTOMATED)2022-02-15 13:50:06 Test Item Value Reference Range Interpretation Comments POCT GLU (test code = 7848947247) 216 mg/dL 70-110 H Lab Interpretation (test code = Abnormal 58281-4) [facility] GLUCOSE (AUTOMATED)2022-02-15 13:50:06 Test Item Value Reference Range Interpretation Comments POCT GLU (test code = 6216572876) 216 mg/dL 70-110 H Lab Interpretation (test code = Abnormal 20019-4) [facility] GLUCOSE (AUTOMATED)2022-02-15 10:43:13 Test Item Value Reference Range Interpretation Comments POCT GLU (test code = 8275989120) 199 mg/dL 70-110 H Lab Interpretation (test code = Abnormal 49343-0) [facility] GLUCOSE (AUTOMATED)2022-02-15 10:43:13 Test Item Value Reference Range Interpretation Comments POCT GLU (test code = 9383866959) 199 mg/dL 70-110 H Lab Interpretation (test code = Abnormal 81227-0) [facility] GLUCOSE (AUTOMATED)2022-02-15 09:31:59 Test Item Value Reference Range Interpretation Comments POCT GLU (test code = 1582080391) 172 mg/dL 70-110 H Lab Interpretation (test code = Abnormal 60721-8) [facility]2022-02-15 09:31:59 Test Item Value Reference Range Interpretation Comments POCT GLU (test code = 9421874044) 172 mg/dL 70-110 H Lab Interpretation (test code = Abnormal 18607-3) [facility] Metabolic Panel (Na, K, Cl, CO2, Glucose, BUN, Creatinine, Ca)2022-02-15 08:02:13 Test Item Value Reference Range Interpretation Comments NA (test code = 140 mmol/L 135-145 6354660217) K (test code = 3.8 mmol/L 3.5-5 7481370884) CL (test code = 110 mmol/L 98-108 H 1431611208) CO2 TOTAL (test code = 13 mmol/L 23-31 L 0170454093) AGAP (test code = 2-16 H 4828294637) BUN (test code = 10 mg/dL 7-23 8521342260) GLUCOSE (test code = 223 mg/dL 70-110 H 5613383958) CREATININE (test code = 0.58 mg/dL 0.6-1.25 L 7482174873) CALCIUM (test code = 8.8 mg/dL 8.6-10.6 2373500572) eGFR (test code = mL/min/1.73m2 1375335524) ARPITA (test code = ARPITA) Association of [...] tests). Lab Interpretation Abnormal (test code = 20331-0) [facility] Metabolic Panel (Na, K, Cl, CO2, Glucose, BUN, Creatinine, Ca)2022-02-15 08:02:13 Test Item Value Reference Range Interpretation Comments NA (test code = 140 mmol/L 135-145 9235475314) K (test code = 3.8 mmol/L 3.5-5 3192086611) CL (test code = 110 mmol/L 98-108 H 2089926403) CO2 TOTAL (test code = 13 mmol/L 23-31 L 8121988480) AGAP (test code = 2-16 H 8170630568) BUN (test code = 10 mg/dL 7-23 4779843109) GLUCOSE (test code = 223 mg/dL 70-110 H 7565111848) CREATININE (test code = 0.58 mg/dL 0.6-1.25 L 7539016195) CALCIUM (test code = 8.8 mg/dL 8.6-10.6 0564234786) eGFR (test code = mL/min/1.73m2 2949013420) ARPITA (test code = ARPITA) Association of [...] tests). Lab Interpretation Abnormal (test code = 22306-8) [facility] GLUCOSE (AUTOMATED)2022-02-15 07:26:01 Test Item Value Reference Range Interpretation Comments POCT GLU (test code = 3633592926) 245 mg/dL 70-110 H Lab Interpretation (test code = Abnormal 41853-4) [facility] GLUCOSE (AUTOMATED)2022-02-15 07:26:01 Test Item Value Reference Range Interpretation Comments POCT GLU (test code = 3763594607) 245 mg/dL 70-110 H Lab Interpretation (test code = Abnormal 77139-4) [facility] GLUCOSE(AGE >30DAYS)2022-02-15 07:11:00 Test Item Value Reference Range Interpretation Comments POCT Glu (age>30days) (test code = 245 mg/dL 70-110 3342) Lab Interpretation (test code = Normal 31852-2) [facility] GLUCOSE(AGE >30DAYS)2022-02-15 07:11:00 Test Item Value Reference Range Interpretation Comments POCT Glu (age>30days) (test code = 245 mg/dL 70-110 3342) Lab Interpretation (test code = Normal 43064-6) [facility] GLUCOSE(AGE >30DAYS)2022-02-15 07:11:00 Test Item Value Reference Range Interpretation Comments POCT Glu (age>30days) (test code = 245 mg/dL 70-110 3342) Lab Interpretation (test code = Normal 33996-6) [facility]2022-02-15 05:57:25 Test Item Value Reference Range Interpretation Comments HGB A1C (test code = 12.7 % 4-5.7 H 4548-4) ARPITA (test code = ARPITA) Reference RangesNormal: <5.7%Prediabetes: 5.7 - 6.4%Diabetes: > 6.5% Lab Interpretation (test Abnormal code = 61099-1) [facility] (A1C)2022-02-15 05:57:25 Test Item Value Reference Range Interpretation Comments HGB A1C (test code = 12.7 % 4-5.7 H 4548-4) ARPITA (test code = ARPITA) Reference RangesNormal: <5.7%Prediabetes: 5.7 - 6.4%Diabetes: > 6.5% Lab Interpretation (test Abnormal code = 18233-3) [facility]A1C)2022-02-15 05:57:25 Test Item Value Reference Range Interpretation Comments HGB A1C (test code = 12.7 % 4-5.7 H 4548-4) ARPITA (test code = ARPITA) Reference RangesNormal: <5.7%Prediabetes: 5.7 - 6.4%Diabetes: > 6.5% Lab Interpretation (test Abnormal code = 51129-7) [facility] [id number] 05:46:44 Test Item Value Reference Range Interpretation Comments MAGNESIUM (test code = 2133807328) 1.7 mg/dL 1.7-2.4 Lab Interpretation (test code = Normal 85429-6) [facility] [id number] 05:46:44 Test Item Value Reference Range Interpretation Comments MAGNESIUM (test code = 9724403607) 1.7 mg/dL 1.7-2.4 Lab Interpretation (test code = Normal 00520-5) [facility] [id number] 05:46:24 Test Item Value Reference Range Interpretation Comments PHOSPHORUS (test code = 6583451474) 4.0 mg/dL 2.5-5 Lab Interpretation (test code = Normal 74547-0) [facility] [id number] 05:46:24 Test Item Value Reference Range Interpretation Comments PHOSPHORUS (test code = 6727500516) 4.0 mg/dL 2.5-5 Lab Interpretation (test code = Normal 05246-3) [facility] [id number] 05:46:24 Test Item Value Reference Range Interpretation Comments PHOSPHORUS (test code = 6369281303) 4.0 mg/dL 2.5-5 Lab Interpretation (test code = Normal 63325-6) [facility] GLUCOSE (AUTOMATED)2022-02-15 05:11:10 Test Item Value Reference Range Interpretation Comments POCT GLU (test code = 5792531461) 410 mg/dL 70-110 H Lab Interpretation (test code = Abnormal 36493-6) [facility] GLUCOSE (AUTOMATED)2022-02-15 05:11:10 Test Item Value Reference Range Interpretation Comments POCT GLU (test code = 2872013498) 410 mg/dL 70-110 H Lab Interpretation (test code = Abnormal 98789-5) [facility] GLUCOSE(AGE >30DAYS)2022-02-15 05:11:00 Test Item Value Reference Range Interpretation Comments POCT Glu (age>30days) (test code = 410 mg/dL 70-110 A 3342) Lab Interpretation (test code = Abnormal 90007-8) [facility] GLUCOSE(AGE >30DAYS)2022-02-15 05:11:00 Test Item Value Reference Range Interpretation Comments POCT Glu (age>30days) (test code = 410 mg/dL 70-110 A 3342) Lab Interpretation (test code = Abnormal 30278-5) [facility] WITH [id number] 05:03:57 Test Item Value Reference Range Interpretation Comments WBC (test code = See_Comment [Automated 7090-2) message] The sy stem which generated this result transmitted reference range : 4.20 - 10.70 10*3/?L. The reference range was not used to interpret this result as normal/abnormal . RBC (test code = See_Comment [Automated 259-8) message] The sy stem which generated this result transmitted reference range : 4.26 - 5.52 10*6/?L. The reference range was not used to interpret this result as normal/abnormal . HGB (test code = 13.9 g/dL 12.2-16.4 718-7) HCT (test code = 42.6 % 38.4-49.3 4544-3) MCV (test code = 88.2 fL 81.7-95.6 787-2) MCH (test code = 28.8 pg 26.1-32.7 785-6) MCHC (test code = 32.6 g/dL 31.2-35 786-4) RDW-SD (test code = 44.1 fL 38.5-51.6 64196-0) RDW-CV (test code = 13.8 % 12.1-15.4 788-0) PLT (test code = See_Comment H [Automated 777-3) message] The sy stem which generated this result transmitted reference range : 150 - 328 10*3/ ?L. The reference r boubacar was not used to interpret this result as normal/abnormal . MPV (test code = 12.2 fL 9.8-13 85492-8) IPF % (test code = 9.4 % 1.2-10.7 Platelet count 0533115855) measured by fluorescence method. NRBC/100 WBC (test See_Comment [Automat ed code = 6162952068) message] The system which generated this result transmitted reference range : 0.0 - 10.0 /100 WBCs. The refer ence range was not u sed to interpret th is result as normal/abnormal . NRBC x10^3 (test code See_Comment [Auto mated = 3142033750) message] The s ystem which generated this result transmitted reference range : 10*3/?L. The reference range was not used to interpret this result as normal/abnormal . GRAN MAT (NEUT) % 65.1 % (test code = 770-8) IMM GRAN % (test code 1.10 % = 7200047452) LYMPH % (test code = 22.4 % 736-9) MONO % (test code = 9.8 % 5905-5) EOS % (test code = 1.4 % 713-8) BASO % (test code = 0.2 % 706-2) GRAN MAT x10^3(ANC) 6.15 10*3/uL 1.99-6.95 (test code = 7384333080) IMM GRAN x10^3 (test 0.10 10*3/uL 0-0.06 H code = 2292791023) LYMPH x10^3 (test code 2.11 10*3/uL 1.09-3.23 = 731-0) MONO x10^3 (test code 0.92 10*3/uL 0.36-1.02 = 742-7) EOS x10^3 (test code = 0.13 10*3/uL 0.06-0.53 711-2) BASO x10^3 (test code 0.01-0.09 = 704-7) Lab Interpretation Abnormal (test code = 93666-1) [facility] WITH [id number] 05:03:57 Test Item Value Reference Range Interpretation Comments WBC (test code = See_Comment [Automated 4390-2) message] The sy stem which generated this result transmitted reference range : 4.20 - 10.70 10*3/?L. The reference range was not used to interpret this result as normal/abnormal . RBC (test code = See_Comment [Automated 639-8) message] The sy stem which generated this result transmitted reference range : 4.26 - 5.52 10*6/?L. The reference range was not used to interpret this result as normal/abnormal . HGB (test code = 13.9 g/dL 12.2-16.4 718-7) HCT (test code = 42.6 % 38.4-49.3 4544-3) MCV (test code = 88.2 fL 81.7-95.6 787-2) MCH (test code = 28.8 pg 26.1-32.7 785-6) MCHC (test code = 32.6 g/dL 31.2-35 786-4) RDW-SD (test code = 44.1 fL 38.5-51.6 91579-6) RDW-CV (test code = 13.8 % 12.1-15.4 788-0) PLT (test code = See_Comment H [Automated 417-3) message] The sy stem which generated this result transmitted reference range : 150 - 328 10*3/ ?L. The reference r boubacar was not used to interpret this result as normal/abnormal . MPV (test code = 12.2 fL 9.8-13 27722-9) IPF % (test code = 9.4 % 1.2-10.7 Platelet count 3381003907) measured by fluorescence method. NRBC/100 WBC (test See_Comment [Automat ed code = 2489896987) message] The system which generated this result transmitted reference range : 0.0 - 10.0 /100 WBCs. The refer ence range was not u sed to interpret th is result as normal/abnormal . NRBC x10^3 (test code See_Comment [Auto mated = 5812232772) message] The s ystem which generated this result transmitted reference range : 10*3/?L. The reference range was not used to interpret this result as normal/abnormal . GRAN MAT (NEUT) % 65.1 % (test code = 770-8) IMM GRAN % (test code 1.10 % = 1083791120) LYMPH % (test code = 22.4 % 736-9) MONO % (test code = 9.8 % 5905-5) EOS % (test code = 1.4 % 713-8) BASO % (test code = 0.2 % 706-2) GRAN MAT x10^3(ANC) 6.15 10*3/uL 1.99-6.95 (test code = 8137764865) IMM GRAN x10^3 (test 0.10 10*3/uL 0-0.06 H code = 7104624603) LYMPH x10^3 (test code 2.11 10*3/uL 1.09-3.23 = 731-0) MONO x10^3 (test code 0.92 10*3/uL 0.36-1.02 = 742-7) EOS x10^3 (test code = 0.13 10*3/uL 0.06-0.53 711-2) BASO x10^3 (test code 0.01-0.09 = 704-7) Lab Interpretation Abnormal (test code = 92256-6) [facility] METABOLIC PANEL (NA, K, CL, CO2, GLUCOSE, BUN, CREATININE, CA)2022-02-15 04:46:12 Test Item Value Reference Range Interpretation Comments NA (test code = 136 mmol/L 135-145 2801285347) K (test code = 5.1 mmol/L 3.5-5 H 6466792714) CL (test code = 106 mmol/L 98-108 6190312173) CO2 TOTAL (test code = 9 mmol/L 23-31 L 9286663140) AGAP (test code = 2-16 H 4945263357) BUN (test code = 11 mg/dL 7-23 8951105768) GLUCOSE (test code = 405 mg/dL 70-110 H 6075357597) CREATININE (test code = 0.62 mg/dL 0.6-1.25 2434678134) CALCIUM (test code = 9.5 mg/dL 8.6-10.6 4704746224) eGFR (test code = mL/min/1.73m2 8630495070) ARPITA (test code = ARPITA) Association of [...] tests). Lab Interpretation Abnormal (test code = 38679-0) [facility] METABOLIC PANEL (NA, K, CL, CO2, GLUCOSE, BUN, CREATININE, CA)2022-02-15 04:46:12 Test Item Value Reference Range Interpretation Comments NA (test code = 136 mmol/L 135-145 7597412647) K (test code = 5.1 mmol/L 3.5-5 H 9095246323) CL (test code = 106 mmol/L 98-108 9441285931) CO2 TOTAL (test code = 9 mmol/L 23-31 L 3696284863) AGAP (test code = 2-16 H 2507143123) BUN (test code = 11 mg/dL 7-23 2592841279) GLUCOSE (test code = 405 mg/dL 70-110 H 8628366841) CREATININE (test code = 0.62 mg/dL 0.6-1.25 9899056720) CALCIUM (test code = 9.5 mg/dL 8.6-10.6 0878525107) eGFR (test code = mL/min/1.73m2 8204258200) ARPITA (test code = ARPITA) Association of [...] tests). Lab Interpretation Abnormal (test code = 05348-5) [facility] / [id number] 04:43:36 Test Item Value Reference Range Interpretation Comments PROTIME PATIENT (test See_Comment [Auto mated message] code = 5964-2) The system [employer] generated this result transmitted ref erence range: 12.0 - 1 4.7 Seconds. The re ference range was not u sed to interpret this result as normal/abnor mal. INR (test code = 6301-6) Nor mal INR <1.1; Warfarin Therap eutic range 2.0 to 3. 0 or 2.5 to 3.5, dep ending upon the indica tions. Lab Interpretation (test Normal code = 26096-9) [facility] / [id number] 04:43:36 Test Item Value Reference Range Interpretation Comments PROTIME PATIENT (test See_Comment [Auto mated message] code = 5964-2) The system [employer] generated this result transmitted ref erence range: 12.0 - 1 4.7 Seconds. The re ference range was not u sed to interpret this result as normal/abnor mal. INR (test code = 6301-6) Nor mal INR <1.1; Warfarin Therap eutic range 2.0 to 3. 0 or 2.5 to 3.5, dep ending upon the indica tions. Lab Interpretation (test Normal code = 97123-1) [facility] / [id number] 04:43:36 Test Item Value Reference Range Interpretation Comments PROTIME PATIENT (test See_Comment [Auto mated message] code = 5964-2) The system [employer] generated this result transmitted ref erence range: 12.0 - 1 4.7 Seconds. The re ference range was not u sed to interpret this result as normal/abnor mal. INR (test code = 6301-6) Nor mal INR <1.1; Warfarin Therap eutic range 2.0 to 3. 0 or 2.5 to 3.5, dep ending upon the indica tions. Lab Interpretation (test Normal code = 36031-9) [facility]40[facility] (ALB,T.PRO,BILI T,BU/BC,ALT,AST,ALK PHOS)2022-02-15 04:40:15 Test Item Value Reference Range Interpretation Comments TOTAL BILI (test code = 0946849928) 0.9 mg/dL 0.1-1.1 BILI UNCON (test code = 1208633863) 0.3 mg/dL 0.1-1.1 BILI CONJ (test code = 2599978072) 0.0 mg/dL 0-0.3 T PROTEIN (test code = 3065930516) 7.5 g/dL 6.3-8.2 ALBUMIN (test code = 1344565941) 4.0 g/dL 3.5-5 ALK PHOS (test code = 1785679689) 166 U/L 34-122 H ALTv (test code = 1742-6) 28 U/L 5-50 AST(SGOT) (test code = 7920982431) 22 U/L 13-40 Lab Interpretation (test code = Abnormal 26253-0) [facility] (12857) (ALB,T.PRO,BILI T,BU/BC,ALT,AST,ALK PHOS)2022-02-15 04:40:15 Test Item Value Reference Range Interpretation Comments TOTAL BILI (test code = 4032565817) 0.9 mg/dL 0.1-1.1 BILI UNCON (test code = 9625124458) 0.3 mg/dL 0.1-1.1 BILI CONJ (test code = 9399046252) 0.0 mg/dL 0-0.3 T PROTEIN (test code = 6412422531) 7.5 g/dL 6.3-8.2 ALBUMIN (test code = 1782038982) 4.0 g/dL 3.5-5 ALK PHOS (test code = 9727646547) 166 U/L 34-122 H ALTv (test code = 1742-6) 28 U/L 5-50 AST(SGOT) (test code = 7985584356) 22 U/L 13-40 Lab Interpretation (test code = Abnormal 44121-8) [facility] (48782) (ALB,T.PRO,BILI T,BU/BC,ALT,AST,ALK PHOS)2022-02-15 04:40:15 Test Item Value Reference Range Interpretation Comments TOTAL BILI (test code = 1784239125) 0.9 mg/dL 0.1-1.1 BILI UNCON (test code = 6616954055) 0.3 mg/dL 0.1-1.1 BILI CONJ (test code = 8519866715) 0.0 mg/dL 0-0.3 T PROTEIN (test code = 2550472496) 7.5 g/dL 6.3-8.2 ALBUMIN (test code = 5229902299) 4.0 g/dL 3.5-5 ALK PHOS (test code = 0720528959) 166 U/L 34-122 H ALTv (test code = 1742-6) 28 U/L 5-50 AST(SGOT) (test code = 7952244986) 22 U/L 13-40 Lab Interpretation (test code = Abnormal 45696-5) [facility] 04:40:00 Test Item Value Reference Range Interpretation Comments LIPASE (test code = 9646719182) 239 U/L 0-220 H Lab Interpretation (test code = Abnormal 34366-5) [facility] 04:40:00 Test Item Value Reference Range Interpretation Comments LIPASE (test code = 0972429989) 239 U/L 0-220 H Lab Interpretation (test code = Abnormal 31785-5) [facility] 04:40:00 Test Item Value Reference Range Interpretation Comments LIPASE (test code = 4535028341) 239 U/L 0-220 H Lab Interpretation (test code = Abnormal 48992-8) [facility] HospitalBLOOD CULTURE [id number] 02:01:26 Test Item Value Reference Range Interpretation Comments Blood Culture-Aerobic No organisms No growth Previo us (test code = 21123-7) isolated prelim inary verified result was Culture In Progress on 02/07/2022 at 00 02 CDTPrevious preliminary verified result was No growth a t 24 hours on 02/07/2022 at 21 01 CDTPrevious preliminary verified result was No growth a t 48 hours on 02/08/2022 at 21 01 CDTPrevious preliminary verified result was No growth a t 72 hours on 02/09/2022 at 21 01 CDT Blood No organisms No growth Previous Culture-Anaerobic isolated preliminar y (test code = 79945-8) verifi ed result was Culture In Progress on 02/07/2022 at 00 02 CDTPrevious preliminary verified result was No growth a t 24 hours on 02/07/2022 at 21 01 CDTPrevious preliminary verified result was No growth a t 48 hours on 02/08/2022 at 21 01 CDTPrevious preliminary verified result was No growth a t 72 hours on 02/09/2022 at 21 01 CDT Lab Interpretation Normal (test code = 50049-7) [facility] GLUCOSE (AUTOMATED)2022-02-10 19:39:16 Test Item Value Reference Range Interpretation Comments POCT GLU (test code = 7823029774) 153 mg/dL 70-110 H Lab Interpretation (test code = Abnormal 61551-2) [facility] GLUCOSE (AUTOMATED)2022-02-10 16:42:59 Test Item Value Reference Range Interpretation Comments POCT GLU (test code = 7518039906) 311 mg/dL 70-110 H Lab Interpretation (test code = Abnormal 02778-0) [facility] GLUCOSE (AUTOMATED)2022-02-10 01:48:17 Test Item Value Reference Range Interpretation Comments POCT GLU (test code = 7142180447) 253 mg/dL 70-110 H Lab Interpretation (test code = Abnormal 58677-0) [facility] GLUCOSE (AUTOMATED)2022-02-09 21:48:07 Test Item Value Reference Range Interpretation Comments POCT GLU (test code = 0306519908) 279 mg/dL 70-110 H Lab Interpretation (test code = Abnormal 59201-2) [facility] GLUCOSE (AUTOMATED)2022-02-09 16:48:09 Test Item Value Reference Range Interpretation Comments POCT GLU (test code = 0020880815) 275 mg/dL 70-110 H Lab Interpretation (test code = Abnormal 51550-4) [facility] METABOLIC PANEL (NA, K, CL, CO2, GLUCOSE, BUN, CREATININE, CA)2022-02-09 15:41:54 Test Item Value Reference Range Interpretation Comments NA (test code = 148 mmol/L 135-145 H [id number]) K (test code = 4.3 mmol/L 3.5-5 [id number]) CL (test code = 123 mmol/L 98-108 H [id number]) CO2 TOTAL (test code = 19 mmol/L 23-31 L 1505573587) AGAP (test code = 2-16 5938576207) BUN (test code = 23 mg/dL 7-23 6031488927) GLUCOSE (test code = 305 mg/dL 70-110 H 3703290482) CREATININE (test code = 0.61 mg/dL 0.6-1.25 1395993697) CALCIUM (test code = 8.5 mg/dL 8.6-10.6 L 4599478332) eGFR (test code = mL/min/1.73m2 9530795523) ARPITA (test code = ARPITA) Association of [...] tests). Lab Interpretation Abnormal (test code = 84252-3) [facility]:07 Test Item Value Reference Range Interpretation Comments MAGNESIUM (test code = 3032382969) 1.8 mg/dL 1.7-2.4 Lab Interpretation (test code = Normal 39104-9) [facility] 15:17:07 Test Item Value Reference Range Interpretation Comments PHOSPHORUS (test code = 3474719133) 2.2 mg/dL 2.5-5 L Lab Interpretation (test code = Abnormal 61794-9) [facility] GLUCOSE (AUTOMATED)2022-02-09 12:48:51 Test Item Value Reference Range Interpretation Comments POCT GLU (test code = 2453234095) 274 mg/dL 70-110 H Lab Interpretation (test code = Abnormal 20806-6) [facility] GLUCOSE (AUTOMATED)2022-02-09 01:10:30 Test Item Value Reference Range Interpretation Comments POCT GLU (test code = 5570078428) 248 mg/dL 70-110 H Lab Interpretation (test code = Abnormal 91242-3) [facility] GLUCOSE (AUTOMATED)2022-02-09 01:10:30 Test Item Value Reference Range Interpretation Comments POCT GLU (test code = 6344263223) 300 mg/dL 70-110 H Lab Interpretation (test code = Abnormal 58867-0) [facility] GLUCOSE (AUTOMATED)2022-02-08 16:52:44 Test Item Value Reference Range Interpretation Comments POCT GLU (test code = 1521720686) 296 mg/dL 70-110 H Lab Interpretation (test code = Abnormal 30579-7) [facility] GLUCOSE (AUTOMATED)2022-02-08 16:52:43 Test Item Value Reference Range Interpretation Comments POCT GLU (test code = 6579430926) 345 mg/dL 70-110 H Lab Interpretation (test code = Abnormal 89425-3) [facility] GLUCOSE (AUTOMATED)2022-02-08 16:52:38 Test Item Value Reference Range Interpretation Comments POCT GLU (test code = 6570887037) 363 mg/dL 70-110 H Lab Interpretation (test code = Abnormal 55921-7) [facility] GLUCOSE (AUTOMATED)2022-02-08 16:52:38 Test Item Value Reference Range Interpretation Comments POCT GLU (test code = 7449071909) 444 mg/dL 70-110 H Lab Interpretation (test code = Abnormal 07540-8) [facility] GLUCOSE (AUTOMATED)2022-02-08 16:52:38 Test Item Value Reference Range Interpretation Comments POCT GLU (test code = 6287478681) 324 mg/dL 70-110 H Lab Interpretation (test code = Abnormal 46528-3) [facility] GLUCOSE (AUTOMATED)2022-02-08 16:52:38 Test Item Value Reference Range Interpretation Comments POCT GLU (test code = 1612863457) 303 mg/dL 70-110 H Lab Interpretation (test code = Abnormal 29508-0) [facility] GLUCOSE (AUTOMATED)2022-02-08 16:52:38 Test Item Value Reference Range Interpretation Comments POCT GLU (test code = 4464196204) 288 mg/dL 70-110 H Lab Interpretation (test code = Abnormal 44858-8) [facility] GLUCOSE (AUTOMATED)2022-02-08 16:37:12 Test Item Value Reference Range Interpretation Comments POCT GLU (test code = 4311576043) 241 mg/dL 70-110 H Lab Interpretation (test code = Abnormal 57868-5) [facility] GLUCOSE (AUTOMATED)2022-02-08 13:14:11 Test Item Value Reference Range Interpretation Comments POCT GLU (test code = 9888361573) 264 mg/dL 70-110 H Lab Interpretation (test code = Abnormal 59095-4) [facility] GLUCOSE (AUTOMATED)2022-02-08 11:04:52 Test Item Value Reference Range Interpretation Comments POCT GLU (test code = 3626364226) 257 mg/dL 70-110 H Lab Interpretation (test code = Abnormal 45431-4) [facility] GLUCOSE (AUTOMATED)2022-02-08 07:51:27 Test Item Value Reference Range Interpretation Comments POCT GLU (test code = 4920609067) 228 mg/dL 70-110 H Lab Interpretation (test code = Abnormal 07975-0) [facility] GLUCOSE (AUTOMATED)2022-02-08 03:43:14 Test Item Value Reference Range Interpretation Comments POCT GLU (test code = 6814013339) 269 mg/dL 70-110 H Lab Interpretation (test code = Abnormal 63491-2) [facility] GLUCOSE (AUTOMATED)2022-02-08 00:53:27 Test Item Value Reference Range Interpretation Comments POCT GLU (test code = 7835827496) 342 mg/dL 70-110 H Lab Interpretation (test code = Abnormal 19726-7) [facility] Metabolic Panel (Na, K, Cl, CO2, Glucose, BUN, Creatinine, Ca)2022-02-08 00:26:35 Test Item Value Reference Range Interpretation Comments NA (test code = 161 mmol/L 135-145 HH 4781156859) K (test code = 5.3 mmol/L 3.5-5 H 3184880479) CL (test code = 131 mmol/L 98-108 H 6276905325) CO2 TOTAL (test code = 14 mmol/L 23-31 L 2844548946) AGAP (test code = 2-16 9521955930) BUN (test code = 40 mg/dL 7-23 H 8817422115) GLUCOSE (test code = 363 mg/dL 70-110 H 4812708044) CREATININE (test code = 1.31 mg/dL 0.6-1.25 H 5961411393) CALCIUM (test code = 9.0 mg/dL 8.6-10.6 4407028982) eGFR (test code = mL/min/1.73m2 9780889835) ARPITA (test code = ARPITA) Association of [...] tests). Lab Interpretation Abnormal (test code = 87333-7) [facility] GLUCOSE (AUTOMATED)2022-02-07 22:31:31 Test Item Value Reference Range Interpretation Comments POCT GLU (test code = 0037946374) 349 mg/dL 70-110 H Lab Interpretation (test code = Abnormal 81252-9) [facility] GLUCOSE (AUTOMATED)2022-02-07 20:57:05 Test Item Value Reference Range Interpretation Comments POCT GLU (test code = 6148023088) 70-110 HH Lab Interpretation (test code = Abnormal 46807-8) [facility] GLUCOSE (AUTOMATED)2022-02-07 20:57:00 Test Item Value Reference Range Interpretation Comments POCT GLU (test code = 3164511486) 70-110 HH Lab Interpretation (test code = Abnormal 79043-0) [facility] GLUCOSE (AUTOMATED)2022-02-07 20:57:00 Test Item Value Reference Range Interpretation Comments POCT GLU (test code = 6192683640) 70-110 HH Lab Interpretation (test code = Abnormal 46736-2) [facility] GLUCOSE (AUTOMATED)2022-02-07 20:57:00 Test Item Value Reference Range Interpretation Comments POCT GLU (test code = 1828781274) 70-110 HH Lab Interpretation (test code = Abnormal 09974-8) [facility] Acid Whole Rqxqo4748-79-46 12:58:42 Test Item Value Reference Range Interpretation Comments LACTIC ACID (test code = 4.32 mmol/L 0.5-2.2 H 4302268532) Lab Interpretation (test code = Abnormal 60061-2) [facility]Phosphorus [id number] 03:51:48 Test Item Value Reference Range Interpretation Comments PHOSPHORUS (test code = 6.7 mg/dL 2.5-5 H Slig ht hemolysis 9909266080) Lab Interpretation (test Abnormal code = 61533-7) [facility]Magnesium Roxmg7478-37-76 03:51:48 Test Item Value Reference Range Interpretation Comments MAGNESIUM (test code = 8604853831) 2.8 mg/dL 1.7-2.4 H Lab Interpretation (test code = Abnormal 17593-7) [facility]COMP[facility] METABOLIC PANEL (92542)2022-02-07 02:16:52 Test Item Value Reference Range Interpretation Comments NA (test code = 166 mmol/L 135-145 HH 7405561897) K (test code = 5.2 mmol/L 3.5-5 H 7024468206) CL (test code = 123 mmol/L 98-108 H 6015960235) CO2 TOTAL (test code = 12 mmol/L 23-31 L 2487196929) AGAP (test code = 2-16 H 0592231935) BUN (test code = 35 mg/dL 7-23 H 4437514760) GLUCOSE (test code = 941 mg/dL 70-110 HH 4030376376) CREATININE (test code = 1.51 mg/dL 0.6-1.25 H 3899222094) TOTAL BILI (test code = 1.1 mg/dL 0.1-1.3 2429576289) CALCIUM (test code = 10.7 mg/dL 8.6-10.6 H 6768573026) T PROTEIN (test code = 8.2 g/dL 6.3-8.2 0482300083) ALBUMIN (test code = 4.5 g/dL 3.5-5 1903556978) ALK PHOS (test code = 201 U/L 34-122 H 9174619755) ALTv (test code = 43 U/L 5-50 1742-6) AST(SGOT) (test code = 27 U/L 13-40 3363002847) eGFR (test code = mL/min/1.73m2 7332414337) ARPITA (test code = ARPITA) Association of [...] tests). Lab Interpretation Abnormal (test code = 42320-8) [facility]TRANH [id number] 02:12:40 Test Item Value Reference Interpretation Comments Range TROPONIN I (test 0.005 ng/mL See_Comment [Automated code = 2341666846) message] The system which generated this result transmitted reference range : <=0.034. The reference range was not used to [...] biotin. Lab Interpretation Normal (test code = 99238-1) [facility] HospitalSALICYLATE2022-07-27 02:06:11 SALICYLATE<10mg/L02/06/2022 9:06 PM [facility]ATORYTherapeutic Range: ? Analgesic and Antipyretic Use ? 20- 100 mg/L ? ? Anti-Inflammatory Use ? 100-250 mg/L Toxic Range: ? Greater than 300 mg/LUnMemorial Hermann The [facility]lands Medical CenterSALICYLATE2022-07-27 02:06:11SALICYLATE<10mg/L02/06/2022 9:06 PM [facility]ORYTherapeutic Range: ? Analgesic and Antipyretic Use ? 20-100 mg/L ? ? Anti-Inflammatory Use ? 100-250 mg/L Toxic Range: ? Greater than 300 mg/L [facility] HospitalETHANOL2022-07-27 02:05:51 ALCOHOL<10mg/dL02/06/2022 9:05 PM [facility]<10 Owsmacxr73-206 Toxic>100 Depression of OIL REFINER>400 Fatalities ReportedUnMemorial Hermann [facility] CenterETHANOL2022-07-27 02:05:51 ALCOHOL<10mg/dL02/06/2022 9:05 PM [facility]<10 Yoawgzyd52-034 Toxic>100 Depression of OIL REFINER>400 Fatalities ReportedUnMemorial Hermann [facility] CenterACETAMINOPHEN2022-07-27 02:03:04 Test Item Value Reference Range Interpretation Comments ACETAMINOP (test code = 10-30 L 0867299192) ARPITA (test code = ARPITA) Toxic: Greater than 200 ug/mL @ 4 hour post ingestion or greater than 50 ug/mL @ 12 hour post ingestion Lab Interpretation (test Abnormal code = 48032-2) [facility] HospitalACETAMINOPHEN2022-07-27 02:03:04 Test Item Value Reference Range Interpretation Comments ACETAMINOP (test code = 10-30 L 9707492352) ARPITA (test code = ARPITA) Toxic: Greater than 200 ug/mL @ 4 hour post ingestion or greater than 50 ug/mL @ 12 hour post ingestion Lab Interpretation (test Abnormal code = 76565-9) [facility] HospitalLIPASE2022-07-27 02:01:02 Test Item Value Reference Range Interpretation Comments LIPASE (test code = 6403018159) 246 U/L 0-220 H Lab Interpretation (test code = Abnormal 26184-3) [facility] HospitalCB WITH [id number] 01:12:41 Test Item Value Reference Range Interpretation Comments [...] 12.2-16.4 H 718-7) HCT (test code = 57.6 % 38.4-49.3 H 4544-3) MCV (test code = 90.7 fL 81.7-95.6 787-2) MCH (test code = 28.8 pg 26.1-32.7 785-6) MCHC (test code = 31.8 g/dL 31.2-35 786-4) RDW-SD (test code = 50.8 fL 38.5-51.6 97421-8) RDW-CV (test code = 16.4 % 12.1-15.4 H 788-0) PLT (test code = See_Comment H [Automated 777-3) message] The system which generated this result transmit lester reference range : 150 - 328 10*3/ ?L. The reference range was not u sed to interpret th is result as normal/abnormal . MPV (test code = 11.6 fL 9.8-13 61859-2) NRBC/100 WBC (test See_Comment [Automat ed code = 6846207716) message] The system which generated this result transmit lester reference range : 0.0 - 10.0 /100 WBCs. The reference range was not used to interpret this result as normal/abnormal . NRBC x10^3 (test code See_Comment [Auto mated = 6941288173) message] The system which generated this result transmit lester reference range : 10*3/?L. The reference range was not used to interpret this result as normal/abnormal . SEG % (test code = 77 % 33-76 H 53828-3) BAND % (test code = 9 % 0-1 H 18851-4) LYMPH % (test code = 7 % 14-54 L 92506-3) MONO % (test code = 7 % 0-4 H 15087-8) ANC (test code = 15.98 10*3/uL 1.99-6.95 H 753-4) ALBERT CELLS (test code 2+ See_Comment A [Auto mated = 7790-9) message] The system which generated this result transmit lester reference range : (none). The reference range was not used to interpret this result as normal/abnormal . Lab Interpretation Abnormal (test code = 36152-3) [facility] GLUCOSE (AUTOMATED)2022-01-27 01:30:22 Test Item Value Reference Range Interpretation Comments POCT GLU (test code = 6448153647) 392 mg/dL 70-110 H Lab Interpretation (test code = Abnormal 04951-2) [facility] GLUCOSE(AGE >30DAYS)2022-01-27 01:30:00 Test Item Value Reference Range Interpretation Comments POCT Glu (age>30days) 392 mg/dL, 70-110 (test code = 3342) informed Lab Interpretation (test Normal code = 78907-6) [facility] GLUCOSE (AUTOMATED)2022-01-27 00:43:22 Test Item Value Reference Range Interpretation Comments POCT GLU (test code = 8386161040) 430 mg/dL 70-110 H Lab Interpretation (test code = Abnormal 13711-5) [facility] GLUCOSE (AUTOMATED)2022-01-26 23:29:00 Test Item Value Reference Range Interpretation Comments POCT GLU (test code = 8447831380) 493 mg/dL 70-110 HH Lab Interpretation (test code = Abnormal 92067-1) [facility] METABOLIC PANEL (NA, K, CL, CO2, GLUCOSE, BUN, CREATININE, CA)2022-01-26 22:56:10 Test Item Value Reference Range Interpretation Comments NA (test code = 132 mmol/L 135-145 L 6221613841) K (test code = 4.4 mmol/L 3.5-5 0780810697) CL (test code = 98 mmol/L 98-108 6427048776) CO2 TOTAL (test code = 19 mmol/L 23-31 L 8255657412) AGAP (test code = 2-16 4304208921) BUN (test code = 11 mg/dL 7-23 9077584076) GLUCOSE (test code = 519 mg/dL 70-110 HH 0074446206) CREATININE (test code = 0.55 mg/dL 0.6-1.25 L 5729210090) CALCIUM (test code = 9.5 mg/dL 8.6-10.6 9554310508) eGFR (test code = mL/min/1.73m2 2076603711) ARPITA (test code = ARPITA) Association of [...] tests). Lab Interpretation Abnormal (test code = 40020-1) [facility] WITH [id number] 22:45:19 Test Item Value Reference Range Interpretation Comments WBC (test code = See_Comment [Automated 7490-2) message] The sy stem which generated this result transmitted reference range : 4.20 - 10.70 10*3/?L. The reference range was not used to interpret this result as normal/abnormal . RBC (test code = See_Comment [Automated 339-8) message] The sy stem which generated this result transmitted reference range : 4.26 - 5.52 10*6/?L. The reference range was not used to interpret this result as normal/abnormal . HGB (test code = 15.7 g/dL 12.2-16.4 718-7) HCT (test code = 46.0 % 38.4-49.3 4544-3) MCV (test code = 85.0 fL 81.7-95.6 787-2) MCH (test code = 29.0 pg 26.1-32.7 785-6) MCHC (test code = 34.1 g/dL 31.2-35 786-4) RDW-SD (test code = 41.7 fL 38.5-51.6 04028-2) RDW-CV (test code = 13.6 % 12.1-15.4 788-0) PLT (test code = See_Comment H [Automated 547-3) message] The sy stem which generated this result transmitted reference range : 150 - 328 10*3/ ?L. The reference r boubacar was not used to interpret this result as normal/abnormal . MPV (test code = 10.6 fL 9.8-13 70888-5) NRBC/100 WBC (test See_Comment [Automat ed code = 2900981021) message] The system which generated this result transmitted reference range : 0.0 - 10.0 /100 WBCs. The refer ence range was not u sed to interpret th is result as normal/abnormal . NRBC x10^3 (test code See_Comment [Auto mated = 5361809087) message] The s ystem which generated this result transmitted reference range : 10*3/?L. The reference range was not used to interpret this result as normal/abnormal . GRAN MAT (NEUT) % 66.6 % (test code = 770-8) IMM GRAN % (test code 0.40 % = 1625248101) LYMPH % (test code = 20.5 % 736-9) MONO % (test code = 10.9 % 5905-5) EOS % (test code = 1.5 % 713-8) BASO % (test code = 0.1 % 706-2) GRAN MAT x10^3(ANC) 4.88 10*3/uL 1.99-6.95 (test code = 7449759031) IMM GRAN x10^3 (test 0.03 10*3/uL 0-0.06 code = 7767436686) LYMPH x10^3 (test code 1.50 10*3/uL 1.09-3.23 = 731-0) MONO x10^3 (test code 0.80 10*3/uL 0.36-1.02 = 742-7) EOS x10^3 (test code = 0.11 10*3/uL 0.06-0.53 711-2) BASO x10^3 (test code 0.01-0.09 = 704-7) Lab Interpretation Abnormal (test code = 47451-3) [facility] WITH [id number] 11:05:43 Test Item Value Reference Range Interpretation Comments [...] g/dL 12.2-16.4 718-7) HCT (test code = 46.3 % 38.4-49.3 4544-3) MCV (test code = 85.4 fL 81.7-95.6 787-2) MCH (test code = 28.8 pg 26.1-32.7 785-6) MCHC (test code = 33.7 g/dL 31.2-35.0 786-4) RDW-SD (test code = 41.7 fL 38.5-51.6 66042-9) RDW-CV (test code = 13.4 % 12.1-15.4 788-0) PLT (test code = See_Comment H [Automated 777-3) message] The sy stem which generated this result transmitted reference range : 150 - 328 10*3/ ?L. The reference r boubacar was not used to interpret this result as normal/abnormal . MPV (test code = 10.3 fL 9.8-13.0 97543-0) NRBC/100 WBC (test See_Comment [Automat ed code = 4418426379) message] The system which generated this result transmitted reference range : 0.0 - 10.0 /100 WBCs. The refer ence range was not u sed to interpret th is result as normal/abnormal . NRBC x10^3 (test code <0.01 See_Comment [Auto mated = 5065239712) message] The s ystem which generated this result transmitted reference range : 10*3/?L. The reference range was not used to interpret this result as normal/abnormal . GRAN MAT (NEUT) % 71.2 % (test code = 770-8) IMM GRAN % (test code 1.30 % = 6755853222) LYMPH % (test code = 18.2 % 736-9) MONO % (test code = 7.1 % 5905-5) EOS % (test code = 1.9 % 713-8) BASO % (test code = 0.3 % 706-2) GRAN MAT x10^3(ANC) 8.37 10*3/uL 1.99-6.95 H (test code = 6639847643) IMM GRAN x10^3 (test 0.15 10*3/uL 0.00-0.06 H code = 8641630857) LYMPH x10^3 (test code 2.14 10*3/uL 1.09-3.23 = 731-0) MONO x10^3 (test code 0.84 10*3/uL 0.36-1.02 = 742-7) EOS x10^3 (test code = 0.22 10*3/uL 0.06-0.53 711-2) BASO x10^3 (test code 0.04 10*3/uL 0.01-0.09 = 704-7) Lab Interpretation Abnormal (test code = 94565-0) [facility]. METABOLIC PANEL (09733)2022-01-17 11:03:21 Test Item Value Reference Range Interpretation Comments NA (test code = 133 mmol/L 135-145 L 1743629625) K (test code = 4.3 mmol/L 3.5-5.0 5778141154) CL (test code = 99 mmol/L 98-108 8622080226) CO2 TOTAL (test code = 20 mmol/L 23-31 L 8677352402) AGAP (test code = 2-16 0596725246) BUN (test code = 11 mg/dL 7-23 5879829998) GLUCOSE (test code = 357 mg/dL 70-110 H 6649297743) CREATININE (test code = 0.52 mg/dL 0.60-1.25 L 6742005426) TOTAL BILI (test code = 0.7 mg/dL 0.1-1.8 0864016442) CALCIUM (test code = 9.6 mg/dL 8.6-10.6 1216777776) T PROTEIN (test code = 7.5 g/dL 6.3-8.2 7736304690) ALBUMIN (test code = 4.2 g/dL 3.5-5.0 7434790872) ALK PHOS (test code = 185 U/L 34-122 H 1018067711) ALTv (test code = 78 U/L 5-50 H 1742-6) AST(SGOT) (test code = 18 U/L 13-40 3076168908) eGFR (test code = mL/min/1.73m2 6892856899) ARPITA (test code = ARPITA) Association of [...] tests). Lab Interpretation Abnormal (test code = 22846-4) [facility] 11:02:41 Test Item Value Reference Range Interpretation Comments LIPASE (test code = 3074634468) 63 U/L 0-220 Lab Interpretation (test code = Normal 45571-4) [facility]2022-01-12 22:54:04 Test Item Value Reference Range Interpretation Comments POCT GLU (test code = 5981748947) 361 mg/dL 70-110 H Lab Interpretation (test code = Abnormal 11565-0) [facility])2022-01-12 12:19:07 Test Item Value Reference Range Interpretation Comments POCT GLU (test code = 4397433890) 390 mg/dL 70-110 H Lab Interpretation (test code = Abnormal 76219-2) [facility] GLUCOSE (AUTOMATED)2022-01-12 04:48:35 Test Item Value Reference Range Interpretation Comments POCT GLU (test code = 7354599090) 412 mg/dL 70-110 H Lab Interpretation (test code = Abnormal 88651-8) [facility] GLUCOSE (AUTOMATED)2022-01-12 01:44:33 Test Item Value Reference Range Interpretation Comments POCT GLU (test code = 9108602661) 376 mg/dL 70-110 H Lab Interpretation (test code = Abnormal 71247-1) [facility] GLUCOSE (AUTOMATED)2022-01-11 21:51:37 Test Item Value Reference Range Interpretation Comments POCT GLU (test code = 2532239721) 267 mg/dL 70-110 H Lab Interpretation (test code = Abnormal 31694-4) [facility] GLUCOSE (AUTOMATED)2022-01-11 17:05:21 Test Item Value Reference Range Interpretation Comments POCT GLU (test code = 1330783180) 377 mg/dL 70-110 H Lab Interpretation (test code = Abnormal 81777-8) [facility] GLUCOSE (AUTOMATED)2022-01-11 13:10:54 Test Item Value Reference Range Interpretation Comments POCT GLU (test code = 2988867325) 495 mg/dL 70-110 HH Lab Interpretation (test code = Abnormal 72144-4) [facility] GLUCOSE (AUTOMATED)2022-01-11 08:34:04 Test Item Value Reference Range Interpretation Comments POCT GLU (test code = 5463851890) 427 mg/dL 70-110 H Lab Interpretation (test code = Abnormal 15636-2) [facility] GLUCOSE (AUTOMATED)2022-01-11 05:46:02 Test Item Value Reference Range Interpretation Comments POCT GLU (test code = 6724693994) 451 mg/dL 70-110 HH Lab Interpretation (test code = Abnormal 89772-1) [facility] GLUCOSE (AUTOMATED)2022-01-11 02:44:38 Test Item Value Reference Range Interpretation Comments POCT GLU (test code = 3172502934) 429 mg/dL 70-110 H Lab Interpretation (test code = Abnormal 79620-7) [facility] GLUCOSE (AUTOMATED)2022-01-10 22:38:24 Test Item Value Reference Range Interpretation Comments POCT GLU (test code = 9931786131) 404 mg/dL 70-110 H Lab Interpretation (test code = Abnormal 85064-4) [facility] GLUCOSE (AUTOMATED)2022-01-10 18:05:20 Test Item Value Reference Range Interpretation Comments POCT GLU (test code = 5374022187) 423 mg/dL 70-110 H Lab Interpretation (test code = Abnormal 48073-0) [facility] METABOLIC PANEL (NA, K, CL, CO2, GLUCOSE, BUN, CREATININE, CA)2022-01-10 14:56:25 Test Item Value Reference Range Interpretation Comments NA (test code = 135 mmol/L 135-145 9030556501) K (test code = 4.0 mmol/L 3.5-5.0 4991049512) CL (test code = 102 mmol/L 98-108 7522033257) CO2 TOTAL (test code = 22 mmol/L 23-31 L 3144426294) AGAP (test code = 2-16 4969914785) BUN (test code = 13 mg/dL 7-23 1671446346) GLUCOSE (test code = 547 mg/dL 70-110 HH 0995520766) CREATININE (test code = 0.65 mg/dL 0.60-1.25 8579242288) CALCIUM (test code = 8.6 mg/dL 8.6-10.6 1645860555) eGFR (test code = mL/min/1.73m2 4287074973) ARPITA (test code = ARPITA) Association of [...] tests). Lab Interpretation Abnormal (test code = 64468-1) [facility] GLUCOSE (AUTOMATED)2022-01-10 13:36:27 Test Item Value Reference Range Interpretation Comments POCT GLU (test code = 5409114619) 526 mg/dL 70-110 HH Lab Interpretation (test code = Abnormal 06495-5) [facility] GLUCOSE (AUTOMATED)2022-01-10 12:52:44 Test Item Value Reference Range Interpretation Comments POCT GLU (test code = 1245583602) >600 70-110 HH Lab Interpretation (test code = Abnormal 71083-8) [facility] GLUCOSE (AUTOMATED)2022-01-10 12:52:44 Test Item Value Reference Range Interpretation Comments POCT GLU (test code = 4711722139) >600 70-110 HH Lab Interpretation (test code = Abnormal 81856-7) [facility] GLUCOSE (AUTOMATED)2022-01-10 11:02:02 Test Item Value Reference Range Interpretation Comments POCT GLU (test code = 7286611878) 521 mg/dL 70-110 HH Lab Interpretation (test code = Abnormal 51343-7) [facility] GLUCOSE (AUTOMATED)2022-01-10 07:22:18 Test Item Value Reference Range Interpretation Comments POCT GLU (test code = 0216582418) 534 mg/dL 70-110 HH Lab Interpretation (test code = Abnormal 40423-1) [facility]NA, K, CL, CO2, GLUCOSE, BUN, CREATININE, CA)2022-01-10 06:34:51 Test Item Value Reference Range Interpretation Comments NA (test code = 133 mmol/L 135-145 L [id number]) K (test code = 4.9 mmol/L 3.5-5.0 Slight 2329489429) hemolysis CL (test code = 96 mmol/L 98-108 L [id number]) CO2 TOTAL (test code 21 mmol/L 23-31 L = 1793925086) AGAP (test code = 2-16 0510836295) BUN (test code = 12 mg/dL 7-23 Slight [id number]) hemolysis GLUCOSE (test code = 639 mg/dL 70-110 HH [id number]) CREATININE (test code 0.46 mg/dL 0.60-1.25 L = 9755961203) CALCIUM (test code = 9.7 mg/dL 8.6-10.6 7000947628) eGFR (test code = mL/min/1.73m2 0137021659) ARPITA (test code = ARPITA) Association of [...] tests). Lab Interpretation Abnormal (test code = 18180-4) [facility]. METABOLIC PANEL ([id number])2022-01-10 02:59:57 Test Item Value Reference Range Interpretation Comments NA (test code = 126 mmol/L 135-145 L 3855459776) K (test code = 5.2 mmol/L 3.5-5.0 H 5201859851) CL (test code = 89 mmol/L 98-108 L 8521188240) CO2 TOTAL (test code = 20 mmol/L 23-31 L 3719536549) AGAP (test code = 2-16 H 8499293193) BUN (test code = 12 mg/dL 7-23 0626410581) GLUCOSE (test code = 856 mg/dL 70-110 HH 6427744241) CREATININE (test code = 0.49 mg/dL 0.60-1.25 L 4686887833) TOTAL BILI (test code = 0.7 mg/dL 0.1-1.8 6973330196) CALCIUM (test code = 10.2 mg/dL 8.6-10.6 7654085469) T PROTEIN (test code = 8.2 g/dL 6.3-8.2 4675436443) ALBUMIN (test code = 4.5 g/dL 3.5-5.0 8971422311) ALK PHOS (test code = 186 U/L 34-122 H 8146005638) ALTv (test code = 27 U/L 5-50 1742-6) AST(SGOT) (test code = 18 U/L 13-40 1670730506) eGFR (test code = mL/min/1.73m2 6010328381) ARPITA (test code = ARPITA) Association of [...] tests). Lab Interpretation Abnormal (test code = 11369-9) [facility] Test Item Value Reference Range Interpretation Comments LIPASE (test code = 8403432213) 146 U/L 0-220 Lab Interpretation (test code = Normal 75073-0) [facility] [id number] 02:34:07 Test Item Value Reference Range Interpretation Comments WBC (test code = See_Comment [Automated 5362-2) message] The sy stem which generated this result transmitted reference range : 4.20 - 10.70 10*3/?L. The reference range was not used to interpret this result as normal/abnormal . RBC (test code = See_Comment [Automated 979-0) message] The sy stem which generated this result transmitted reference range : 4.26 - 5.52 10*6/?L. The reference range was not used to interpret this result as normal/abnormal . HGB (test code = 16.1 g/dL 12.2-16.4 718-7) HCT (test code = 47.5 % 38.4-49.3 4544-3) MCV (test code = 86.2 fL 81.7-95.6 787-2) MCH (test code = 29.2 pg 26.1-32.7 785-6) MCHC (test code = 33.9 g/dL 31.2-35.0 786-4) RDW-SD (test code = 42.0 fL 38.5-51.6 75144-1) RDW-CV (test code = 13.5 % 12.1-15.4 788-0) PLT (test code = See_Comment H [Automated 777-3) message] The sy stem which generated this result transmitted reference range : 150 - 328 10*3/ ?L. The reference r boubacar was not used to interpret this result as normal/abnormal . MPV (test code = 10.5 fL 9.8-13.0 13720-9) NRBC/100 WBC (test See_Comment [Automat ed code = 1826360984) message] The system which generated this result transmitted reference range : 0.0 - 10.0 /100 WBCs. The refer ence range was not u sed to interpret th is result as normal/abnormal . NRBC x10^3 (test code <0.01 See_Comment [Auto mated = 0970743555) message] The s ystem which generated this result transmitted reference range : 10*3/?L. The reference range was not used to interpret this result as normal/abnormal . GRAN MAT (NEUT) % 67.5 % (test code = 770-8) IMM GRAN % (test code 0.70 % = 6683276320) LYMPH % (test code = 21.7 % 736-9) MONO % (test code = 8.4 % 5905-5) EOS % (test code = 1.3 % 713-8) BASO % (test code = 0.4 % 706-2) GRAN MAT x10^3(ANC) 6.61 10*3/uL 1.99-6.95 (test code = 7279039240) IMM GRAN x10^3 (test 0.07 10*3/uL 0.00-0.06 H code = 8046258337) LYMPH x10^3 (test code 2.12 10*3/uL 1.09-3.23 = 731-0) MONO x10^3 (test code 0.82 10*3/uL 0.36-1.02 = 742-7) EOS x10^3 (test code = 0.13 10*3/uL 0.06-0.53 711-2) BASO x10^3 (test code 0.04 10*3/uL 0.01-0.09 = 704-7) Lab Interpretation Abnormal (test code = 50321-2) [id number][facility] (ALB,T.PRO,BILI T,BU/BC,ALT,AST,ALK PHOS)2022-01-06 13:57:09 Test Item Value Reference Range Interpretation Comments TOTAL BILI (test code = 5006940673) 0.7 mg/dL 0.1-1.1 BILI UNCON (test code = 6258808713) 0.3 mg/dL 0.1-1.1 BILI CONJ (test code = 8043624835) 0.0 mg/dL 0.0-0.3 T PROTEIN (test code = 6971459835) 7.5 g/dL 6.3-8.2 ALBUMIN (test code = 9939565068) 3.8 g/dL 3.5-5.0 ALK PHOS (test code = 3121303181) 161 U/L 34-122 H ALTv (test code = 1742-6) 44 U/L 5-50 AST(SGOT) (test code = 4311925690) 47 U/L 13-40 H Lab Interpretation (test code = Abnormal 65405-4) [facility] (NA, K, CL, CO2, GLUCOSE, BUN, CREATININE, CA)2022-01-06 10:48:59 Test Item Value Reference Range Interpretation Comments NA (test code = 136 mmol/L 135-145 3842503287) K (test code = 3.8 mmol/L 3.5-5.0 6923919703) CL (test code = 101 mmol/L 98-108 4520225167) CO2 TOTAL (test code = 22 mmol/L 23-31 L 5199424080) AGAP (test code = 2-16 0186469730) BUN (test code = 16 mg/dL 7-23 2024906767) GLUCOSE (test code = 358 mg/dL 70-110 H 8952231046) CREATININE (test code = 0.63 mg/dL 0.60-1.25 5301553381) CALCIUM (test code = 9.2 mg/dL 8.6-10.6 3777104959) eGFR (test code = mL/min/1.73m2 9645954836) ARPITA (test code = ARPITA) Association of [...] tests). Lab Interpretation Abnormal (test code = 91041-1) [facility] WITH [id number] 10:01:35 Test Item Value Reference Range Interpretation Comments [...] g/dL 12.2-16.4 718-7) HCT (test code = 43.2 % 38.4-49.3 4544-3) MCV (test code = 86.1 fL 81.7-95.6 787-2) MCH (test code = 29.7 pg 26.1-32.7 785-6) MCHC (test code = 34.5 g/dL 31.2-35.0 786-4) RDW-SD (test code = 41.6 fL 38.5-51.6 72092-3) RDW-CV (test code = 13.4 % 12.1-15.4 788-0) PLT (test code = See_Comment H [Automated 777-3) message] The sy stem which generated this result transmitted reference range : 150 - 328 10*3/ ?L. The reference r boubacar was not used to interpret this result as normal/abnormal . MPV (test code = 11.0 fL 9.8-13.0 61660-4) NRBC/100 WBC (test See_Comment [Automat ed code = 1358654984) message] The system which generated this result transmitted reference range : 0.0 - 10.0 /100 WBCs. The refer ence range was not u sed to interpret th is result as normal/abnormal . NRBC x10^3 (test code <0.01 See_Comment [Auto mated = 6597149082) message] The s ystem which generated this result transmitted reference range : 10*3/?L. The reference range was not used to interpret this result as normal/abnormal . GRAN MAT (NEUT) % 62.6 % (test code = 770-8) IMM GRAN % (test code 0.40 % = 1007350533) LYMPH % (test code = 23.2 % 736-9) MONO % (test code = 9.6 % 5905-5) EOS % (test code = 3.8 % 713-8) BASO % (test code = 0.4 % 706-2) GRAN MAT x10^3(ANC) 4.76 10*3/uL 1.99-6.95 (test code = 3439425602) IMM GRAN x10^3 (test 0.03 10*3/uL 0.00-0.06 code = 6600815060) LYMPH x10^3 (test code 1.76 10*3/uL 1.09-3.23 = 731-0) MONO x10^3 (test code 0.73 10*3/uL 0.36-1.02 = 742-7) EOS x10^3 (test code = 0.29 10*3/uL 0.06-0.53 711-2) BASO x10^3 (test code 0.03 10*3/uL 0.01-0.09 = 704-7) Lab Interpretation Abnormal (test code = 60798-9) [facility]OL[facility] ([id number])2022-01-05 04:36:59 Test Item Value Reference Range Interpretation Comments NA (test code = 138 mmol/L 135-145 1670347791) K (test code = 5.4 mmol/L 3.5-5.0 H 7959640196) CL (test code = 98 mmol/L 98-108 1526425622) CO2 TOTAL (test code = 17 mmol/L 23-31 L 4538249218) AGAP (test code = 2-16 H 0398820816) BUN (test code = 19 mg/dL 7-23 5971352812) GLUCOSE (test code = 469 mg/dL 70-110 HH 1764221539) CREATININE (test code = 0.74 mg/dL 0.60-1.25 2496027506) TOTAL BILI (test code = 1.0 mg/dL 0.1-1.0 0465271105) CALCIUM (test code = 10.1 mg/dL 8.6-10.6 8855440228) T PROTEIN (test code = 8.2 g/dL 6.3-8.2 5790682135) ALBUMIN (test code = 4.6 g/dL 3.5-5.0 3682061754) ALK PHOS (test code = 208 U/L 34-122 H 5692148077) ALTv (test code = 51 U/L 5-50 H 1742-6) AST(SGOT) (test code = 18 U/L 13-40 8036656214) eGFR (test code = mL/min/1.73m2 2860040582) ARPITA (test code = ARPITA) Association of [...] tests). Lab Interpretation Abnormal (test code = 85097-8) [facility] 04[facility]29:02 Test Item Value Reference Range Interpretation Comments LIPASE (test code = 8333714678) 137 U/L 0-220 Lab Interpretation (test code = Normal 64963-4) [facility] WITH [id number] 04:07:59 Test Item Value Reference Range Interpretation Comments [...] as normal/abnormal . HGB (test code = 16.8 g/dL 12.2-16.4 H 718-7) HCT (test code = 49.2 % 38.4-49.3 4544-3) MCV (test code = 86.2 fL 81.7-95.6 787-2) MCH (test code = 29.4 pg 26.1-32.7 785-6) MCHC (test code = 34.1 g/dL 31.2-35.0 786-4) RDW-SD (test code = 42.6 fL 38.5-51.6 86625-3) RDW-CV (test code = 13.6 % 12.1-15.4 788-0) PLT (test code = See_Comment H [Automated 777-3) message] The sy stem which generated this result transmitted reference range : 150 - 328 10*3/ ?L. The reference r boubacar was not used to interpret this result as normal/abnormal . MPV (test code = 10.7 fL 9.8-13.0 82596-6) NRBC/100 WBC (test See_Comment [Automat ed code = 3937198229) message] The system which generated this result transmitted reference range : 0.0 - 10.0 /100 WBCs. The refer ence range was not u sed to interpret th is result as normal/abnormal . NRBC x10^3 (test code <0.01 See_Comment [Auto mated = 8548893999) message] The s ystem which generated this result transmitted reference range : 10*3/?L. The reference range was not used to interpret this result as normal/abnormal . GRAN MAT (NEUT) % 74.2 % (test code = 770-8) IMM GRAN % (test code 0.50 % = 1922703668) LYMPH % (test code = 14.8 % 736-9) MONO % (test code = 8.3 % 5905-5) EOS % (test code = 1.9 % 713-8) BASO % (test code = 0.3 % 706-2) GRAN MAT x10^3(ANC) 8.01 10*3/uL 1.99-6.95 H (test code = 9687109109) IMM GRAN x10^3 (test 0.05 10*3/uL 0.00-0.06 code = 8130738838) LYMPH x10^3 (test code 1.59 10*3/uL 1.09-3.23 = 731-0) MONO x10^3 (test code 0.89 10*3/uL 0.36-1.02 = 742-7) EOS x10^3 (test code = 0.20 10*3/uL 0.06-0.53 711-2) BASO x10^3 (test code 0.03 10*3/uL 0.01-0.09 = 704-7) Lab Interpretation Abnormal (test code = 20260-5) [facility] GLUCOSE (AUTOMATED)2021-12-22 17:25:00 Test Item Value Reference Range Interpretation Comments POCT GLU (test code = 7172286355) 249 mg/dL 70-110 H Lab Interpretation (test code = Abnormal 15557-5) [facility] GLUCOSE (AUTOMATED)2021-12-22 12:54:01 Test Item Value Reference Range Interpretation Comments POCT GLU (test code = 6283394178) 188 mg/dL 70-110 H Lab Interpretation (test code = Abnormal 60010-5) [facility] METABOLIC PANEL (NA, K, CL, CO2, GLUCOSE, BUN, CREATININE, CA)2021-12-22 11:48:23 Test Item Value Reference Range Interpretation Comments NA (test code = 137 mmol/L 135-145 2793913209) K (test code = 4.3 mmol/L 3.5-5.0 0624951231) CL (test code = 105 mmol/L 98-108 3520061866) CO2 TOTAL (test code = 23 mmol/L 23-31 4869917359) AGAP (test code = 2-16 5883610452) BUN (test code = 19 mg/dL 7-23 1995690097) GLUCOSE (test code = 243 mg/dL 70-110 H 4040568687) CREATININE (test code = 0.50 mg/dL 0.60-1.25 L 6436484174) CALCIUM (test code = 8.9 mg/dL 8.6-10.6 4332439402) eGFR (test code = mL/min/1.73m2 9182865174) ARPITA (test code = ARPITA) Association of [...] tests). Lab Interpretation Abnormal (test code = 06131-9) [facility] 11:48:23 Test Item Value Reference Range Interpretation Comments MAGNESIUM (test code = 5946351250) 2.1 mg/dL 1.7-2.4 Lab Interpretation (test code = Normal 47154-6) [facility] WITH [id number] 11:09:44 Test Item Value Reference Range Interpretation Comments WBC (test code = See_Comment [Automated message] 6690-2) The system [employer] generated this result transmitted ref erence range: 4.20 - 1 0.70 10*3/?L. The re ference range was not u sed to interpret this result as normal/abnor mal. RBC (test code = See_Comment [Automated message] 789-8) The system [employer] generated this result transmitted ref erence range: [...] RDW-SD (test code 43.6 fL 38.5-51.6 = 70623-5) RDW-CV (test code 13.7 % 12.1-15.4 = 788-0) PLT (test code = See_Comment [Automated message] 777-3) The system [employer] generated this result transmitted ref erence range: 150 - 32 8 10*3/?L. The re ference range was not u sed to interpret this result as normal/abnor mal. MPV (test code = 11.0 fL 9.8-13.0 75912-4) NRBC/100 WBC (test See_Comment [Automat ed message] code = 5407329049) The syste [employer] which generated this result transmitted ref erence range: 0.0 - 10 .0 /100 WBCs. The refer ence range was not u sed to interpret this result as normal/abnor mal. NRBC x10^3 (test <0.01 See_Comment [Automated message] code = 0369493505) The syste m which generated this result transmitted ref erence range: 10*3/?L. The reference range was not used to interpr et this result as normal/abnormal . GRAN MAT (NEUT) % 57.9 % (test code = 770-8) IMM GRAN % (test 0.60 % code = 8340931016) LYMPH % (test code 30.7 % = 736-9) MONO % (test code 8.5 % = 5905-5) EOS % (test code = 2.0 % 713-8) BASO % (test code 0.3 % = 706-2) GRAN MAT 5.14 10*3/uL 1.99-6.95 x10^3(ANC) (test code = 6748013873) IMM GRAN x10^3 0.05 10*3/uL 0.00-0.06 (test code = 2467775370) LYMPH x10^3 (test 2.73 10*3/uL 1.09-3.23 code = 731-0) MONO x10^3 (test 0.76 10*3/uL 0.36-1.02 code = 742-7) EOS x10^3 (test 0.18 10*3/uL 0.06-0.53 code = 711-2) BASO x10^3 (test 0.03 10*3/uL 0.01-0.09 code = 704-7) [facility] GLUCOSE (AUTOMATED)2021-12-22 10:34:14 Test Item Value Reference Range Interpretation Comments POCT GLU (test code = 8340719949) 230 mg/dL 70-110 H Lab Interpretation (test code = Abnormal 48347-5) [facility] GLUCOSE (AUTOMATED)2021-12-22 05:56:50 Test Item Value Reference Range Interpretation Comments POCT GLU (test code = 3944252092) 314 mg/dL 70-110 H Lab Interpretation (test code = Abnormal 37734-2) [facility] GLUCOSE (AUTOMATED)2021-12-22 04:40:22 Test Item Value Reference Range Interpretation Comments POCT GLU (test code = 4680121312) 324 mg/dL 70-110 H Lab Interpretation (test code = Abnormal 61861-3) [facility] GLUCOSE (AUTOMATED)2021-12-22 02:37:33 Test Item Value Reference Range Interpretation Comments POCT GLU (test code = 2319396777) 296 mg/dL 70-110 H Lab Interpretation (test code = Abnormal 65881-4) [facility] GLUCOSE (AUTOMATED)2021-12-22 01:05:02 Test Item Value Reference Range Interpretation Comments POCT GLU (test code = 2709632098) 319 mg/dL 70-110 H Lab Interpretation (test code = Abnormal 06702-1) [facility] GLUCOSE (AUTOMATED)2021-12-21 21:59:09 Test Item Value Reference Range Interpretation Comments POCT GLU (test code = 7175189538) 257 mg/dL 70-110 H Lab Interpretation (test code = Abnormal 77284-1) [facility] GLUCOSE (AUTOMATED)2021-12-21 17:21:41 Test Item Value Reference Range Interpretation Comments POCT GLU (test code = 6175713475) 214 mg/dL 70-110 H Lab Interpretation (test code = Abnormal 01948-7) [facility] GLUCOSE (AUTOMATED)2021-12-21 13:04:04 Test Item Value Reference Range Interpretation Comments POCT GLU (test code = 3471010881) 234 mg/dL 70-110 H Lab Interpretation (test code = Abnormal 44924-9) [facility] METABOLIC PANEL (NA, K, CL, CO2, GLUCOSE, BUN, CREATININE, CA)2021-12-21 12:23:33 Test Item Value Reference Range Interpretation Comments NA (test code = 136 mmol/L 135-145 3079654387) K (test code = 4.1 mmol/L 3.5-5.0 6138001882) CL (test code = 109 mmol/L 98-108 H 5783014515) CO2 TOTAL (test code = 20 mmol/L 23-31 L 8329181247) AGAP (test code = 2-16 6663476295) BUN (test code = 16 mg/dL 7-23 7820953338) GLUCOSE (test code = 281 mg/dL 70-110 H 0110677346) CREATININE (test code = 0.50 mg/dL 0.60-1.25 L 5746229455) CALCIUM (test code = 8.3 mg/dL 8.6-10.6 L 1566498691) eGFR (test code = mL/min/1.73m2 7366387908) ARPITA (test code = ARPITA) Association of [...] tests). Lab Interpretation Abnormal (test code = 40012-4) [facility] 12:23:33 Test Item Value Reference Range Interpretation Comments MAGNESIUM (test code = 0774401529) 1.6 mg/dL 1.7-2.4 L Lab Interpretation (test code = Abnormal 88387-0) [facility] 12:23:13 Test Item Value Reference Range Interpretation Comments PHOSPHORUS (test code = 9574397976) 3.2 mg/dL 2.5-5.0 Lab Interpretation (test code = Normal 09405-0) [facility] (A1C)2021-12-21 10:04:37 Test Item Value Reference Range Interpretation Comments HGB A1C (test code = 9.6 % 4.0-5.7 H 4548-4) ARPITA (test code = ARPITA) Reference RangesNormal: <5.7%Prediabetes: 5.7 - 6.4%Diabetes: > 6.5% Lab Interpretation (test Abnormal code = 71963-9) [facility] WITH [id number] 09:29:41 Test Item Value Reference Range Interpretation Comments WBC (test code = See_Comment [Automated message] 6690-2) The system [employer] generated this result transmitted ref erence range: 4.20 - 1 0.70 10*3/?L. The re ference range was not u sed to interpret this result as normal/abnor mal. RBC (test code = See_Comment [Automated message] 079-8) The system [employer] generated this result transmitted ref erence range: [...] RDW-SD (test code 42.5 fL 38.5-51.6 = 88399-6) RDW-CV (test code 13.5 % 12.1-15.4 = 788-0) PLT (test code = See_Comment [Automated message] 777-3) The system [employer] generated this result transmitted ref erence range: 150 - 32 8 10*3/?L. The re ference range was not u sed to interpret this result as normal/abnor mal. MPV (test code = 10.8 fL 9.8-13.0 97260-6) NRBC/100 WBC (test See_Comment [Automat ed message] code = 2038081079) The [employer] which generated this result transmitted ref erence range: 0.0 - 10 .0 /100 WBCs. The refer ence range was not u sed to interpret this result as normal/abnor mal. NRBC x10^3 (test <0.01 See_Comment [Automated message] code = 5456997450) The syste m which generated this result transmitted ref erence range: 10*3/?L. The reference range was not used to interpr et this result as normal/abnormal . GRAN MAT (NEUT) % 58.6 % (test code = 770-8) IMM GRAN % (test 0.50 % code = 5202770415) LYMPH % (test code 31.3 % = 736-9) MONO % (test code 6.9 % = 5905-5) EOS % (test code = 2.4 % 713-8) BASO % (test code 0.3 % = 706-2) GRAN MAT 5.39 10*3/uL 1.99-6.95 x10^3(ANC) (test code = 7022556605) IMM GRAN x10^3 0.05 10*3/uL 0.00-0.06 (test code = 6468176694) LYMPH x10^3 (test 2.89 10*3/uL 1.09-3.23 code = 731-0) MONO x10^3 (test 0.64 10*3/uL 0.36-1.02 code = 742-7) EOS x10^3 (test 0.22 10*3/uL 0.06-0.53 code = 711-2) BASO x10^3 (test 0.03 10*3/uL 0.01-0.09 code = 704-7) [facility] GLUCOSE (AUTOMATED)2021-12-21 09:06:33 Test Item Value Reference Range Interpretation Comments POCT GLU (test code = 2420363506) 206 mg/dL 70-110 H Lab Interpretation (test code = Abnormal 58281-8) [facility] GLUCOSE (AUTOMATED)2021-12-21 04:38:41 Test Item Value Reference Range Interpretation Comments POCT GLU (test code = 6751943786) 272 mg/dL 70-110 H Lab Interpretation (test code = Abnormal 82013-6) [facility] GLUCOSE (AUTOMATED)2021-12-21 01:14:47 Test Item Value Reference Range Interpretation Comments POCT GLU (test code = 9255846855) 256 mg/dL 70-110 H Lab Interpretation (test code = Abnormal 97294-9) [facility] GLUCOSE (AUTOMATED)2021-12-20 21:11:19 Test Item Value Reference Range Interpretation Comments POCT GLU (test code = 0497420478) 254 mg/dL 70-110 H Lab Interpretation (test code = Abnormal 71766-1) [facility] GLUCOSE (AUTOMATED)2021-12-20 17:10:33 Test Item Value Reference Range Interpretation Comments POCT GLU (test code = 5946851490) 350 mg/dL 70-110 H Lab Interpretation (test code = Abnormal 69312-0) [facility] GLUCOSE (AUTOMATED)2021-12-20 12:50:18 Test Item Value Reference Range Interpretation Comments POCT GLU (test code = 8096028838) 269 mg/dL 70-110 H Lab Interpretation (test code = Abnormal 70807-2) [facility] Metabolic Panel (NA, K, CL, CO2, GLUCOSE, BUN, CREATININE, CA)2021-12-20 10:18:27 Test Item Value Reference Range Interpretation Comments NA (test code = 137 mmol/L 135-145 5147148481) K (test code = 4.0 mmol/L 3.5-5.0 8021786625) CL (test code = 108 mmol/L 98-108 8420572595) CO2 TOTAL (test code = 23 mmol/L 23-31 2168785269) AGAP (test code = 2-16 2229690644) BUN (test code = 16 mg/dL 7-23 6665356311) GLUCOSE (test code = 386 mg/dL 70-110 H 6349790136) CREATININE (test code = 0.70 mg/dL 0.60-1.25 5707225547) CALCIUM (test code = 8.6 mg/dL 8.6-10.6 3927496293) eGFR (test code = mL/min/1.73m2 4290318560) ARPITA (test code = ARPITA) Association of [...] tests). Lab Interpretation Abnormal (test code = 89616-9) [facility] with [id number] 10:03:31 Test Item Value Reference Range Interpretation Comments WBC (test code = See_Comment [Automated message] 6690-2) The system [employer] generated this result transmitted ref erence range: 4.20 - 1 0.70 10*3/?L. The re ference range was not u sed to interpret this result as normal/abnor mal. RBC (test code = See_Comment [Automated message] 789-8) The system [employer] generated this result transmitted ref erence range: [...] RDW-SD (test code 42.5 fL 38.5-51.6 = 30734-0) RDW-CV (test code 13.5 % 12.1-15.4 = 788-0) PLT (test code = See_Comment [Automated message] 777-3) The system whic h generated this result transmitted ref erence range: 150 - 32 8 10*3/?L. The re ference range was not u sed to interpret this result as normal/abnor mal. MPV (test code = 11.2 fL 9.8-13.0 50039-7) NRBC/100 WBC (test See_Comment [Automat ed message] code = 1096141730) The syste m which generated this result transmitted ref erence range: 0.0 - 10 .0 /100 WBCs. The refer ence range was not u sed to interpret this result as normal/abnor mal. NRBC x10^3 (test <0.01 See_Comment [Automated message] code = 4143018181) The syste m which generated this result transmitted ref erence range: 10*3/?L. The reference range was not used to interpr et this result as normal/abnormal . GRAN MAT (NEUT) % 63.5 % (test code = 770-8) IMM GRAN % (test 0.30 % code = 8119864877) LYMPH % (test code 24.8 % = 736-9) MONO % (test code 8.7 % = 5905-5) EOS % (test code = 2.5 % 713-8) BASO % (test code 0.2 % = 706-2) GRAN MAT 6.05 10*3/uL 1.99-6.95 x10^3(ANC) (test code = 4511632058) IMM GRAN x10^3 0.03 10*3/uL 0.00-0.06 (test code = 8225752107) LYMPH x10^3 (test 2.37 10*3/uL 1.09-3.23 code = 731-0) MONO x10^3 (test 0.83 10*3/uL 0.36-1.02 code = 742-7) EOS x10^3 (test 0.24 10*3/uL 0.06-0.53 code = 711-2) BASO x10^3 (test <0.03 0.01-0.09 code = 704-7) [facility] GLUCOSE (AUTOMATED)2021-12-20 09:00:15 Test Item Value Reference Range Interpretation Comments POCT GLU (test code = 1950164678) 402 mg/dL 70-110 H Lab Interpretation (test code = Abnormal 58642-4) [facility] GLUCOSE (AUTOMATED)2021-12-20 04:54:36 Test Item Value Reference Range Interpretation Comments POCT GLU (test code = 3772815371) 368 mg/dL 70-110 H Lab Interpretation (test code = Abnormal 75295-6) [facility] GLUCOSE (AUTOMATED)2021-12-20 03:13:40 Test Item Value Reference Range Interpretation Comments POCT GLU (test code = 3846886928) 438 mg/dL 70-110 H Lab Interpretation (test code = Abnormal 87697-6) [facility]. METABOLIC PANEL (22604)2021-12-20 01:05:39 Test Item Value Reference Range Interpretation Comments NA (test code = 133 mmol/L 135-145 L 7203346661) K (test code = 4.7 mmol/L 3.5-5.0 6207408827) CL (test code = 99 mmol/L 98-108 8479489288) CO2 TOTAL (test code = 21 mmol/L 23-31 L 2237189301) AGAP (test code = 2-16 7016676485) BUN (test code = 18 mg/dL 7-23 8232498788) GLUCOSE (test code = 660 mg/dL 70-110 HH 0831897652) CREATININE (test code = 0.64 mg/dL 0.60-1.25 6624715524) TOTAL BILI (test code = 1.0 mg/dL 0.1-1.5 8688775494) CALCIUM (test code = 9.7 mg/dL 8.6-10.6 9313128586) T PROTEIN (test code = 7.9 g/dL 6.3-8.2 5665936942) ALBUMIN (test code = 4.4 g/dL 3.5-5.0 7328425148) ALK PHOS (test code = 143 U/L 34-122 H 4345946783) ALTv (test code = 47 U/L 5-50 1742-6) AST(SGOT) (test code = 30 U/L 13-40 6491697953) eGFR (test code = mL/min/1.73m2 9647423884) ARPITA (test code = ARPITA) Association of [...] tests). Lab Interpretation Abnormal (test code = 22962-8) [facility] Test Item Value Reference Range Interpretation Comments LIPASE (test code = 4737375765) 255 U/L 0-220 H Lab Interpretation (test code = Abnormal 18127-5) [facility] WITH [id number] 00:38:14 Test Item Value Reference Range Interpretation [...] RDW-SD (test code = 43.8 fL 38.5-51.6 50680-6) RDW-CV (test code = 13.6 % 12.1-15.4 788-0) PLT (test code = See_Comment [Automated 777-3) message] The sy stem which generated this result transmitted reference range : 150 - 328 10*3/ ?L. The reference r boubacar was not used to interpret this result as normal/abnormal . MPV (test code = 11.4 fL 9.8-13.0 55892-9) NRBC/100 WBC (test See_Comment [Automat ed code = 7542561770) message] The system which generated this result transmitted reference range : 0.0 - 10.0 /100 WBCs. The refer ence range was not u sed to interpret th is result as normal/abnormal . NRBC x10^3 (test code <0.01 See_Comment [Auto mated = 4672065946) message] The s ystem which generated this result transmitted reference range : 10*3/?L. The reference range was not used to interpret this result as normal/abnormal . GRAN MAT (NEUT) % 76.0 % (test code = 770-8) IMM GRAN % (test code 0.50 % = 2948721305) LYMPH % (test code = 15.2 % 736-9) MONO % (test code = 6.5 % 5905-5) EOS % (test code = 1.6 % 713-8) BASO % (test code = 0.2 % 706-2) GRAN MAT x10^3(ANC) 8.55 10*3/uL 1.99-6.95 H (test code = 8733984388) IMM GRAN x10^3 (test 0.06 10*3/uL 0.00-0.06 code = 1856233258) LYMPH x10^3 (test code 1.71 10*3/uL 1.09-3.23 = 731-0) MONO x10^3 (test code 0.73 10*3/uL 0.36-1.02 = 742-7) EOS x10^3 (test code = 0.18 10*3/uL 0.06-0.53 711-2) BASO x10^3 (test code <0.03 0.01-0.09 = 704-7) Lab Interpretation Abnormal (test code = 67260-8) [facility] 18:32:39 Test Item Value Reference Range Interpretation Comments MAGNESIUM (test code = 7351644144) 1.7 mg/dL 1.7-2.4 Lab Interpretation (test code = Normal 73585-2) [facility] (NA, K, CL, CO2, GLUCOSE, BUN, CREATININE, CA)2021-12-18 18:32:38 Test Item Value Reference Range Interpretation Comments NA (test code = 137 mmol/L 135-145 8261846574) K (test code = 4.3 mmol/L 3.5-5.0 7801375517) CL (test code = 105 mmol/L 98-108 7754043226) CO2 TOTAL (test code = 23 mmol/L 23-31 7324272260) AGAP (test code = 2-16 9038472826) BUN (test code = 17 mg/dL 7-23 9528114589) GLUCOSE (test code = 317 mg/dL 70-110 H 2089945562) CREATININE (test code = 0.57 mg/dL 0.60-1.25 L 5616288203) CALCIUM (test code = 9.3 mg/dL 8.6-10.6 9740034542) eGFR (test code = mL/min/1.73m2 5429902465) ARPITA (test code = ARPITA) Association of [...] tests). Lab Interpretation Abnormal (test code = 06980-8) [facility] WITH [id number] 18:10:18 Test Item Value Reference Range Interpretation Comments WBC (test code = See_Comment [Automated message] 6690-2) The system [employer] generated this result transmitted ref erence range: 4.20 - 1 0.70 10*3/?L. The re ference range was not u sed to interpret this result as normal/abnor mal. RBC (test code = See_Comment [Automated message] 789-8) The system [employer] generated this result transmitted ref erence range: [...] RDW-SD (test code 44.4 fL 38.5-51.6 = 09815-6) RDW-CV (test code 13.8 % 12.1-15.4 = 788-0) PLT (test code = See_Comment [Automated message] 777-3) The system [employer] generated this result transmitted ref erence range: 150 - 32 8 10*3/?L. The re ference range was not u sed to interpret this result as normal/abnor mal. MPV (test code = 10.9 fL 9.8-13.0 82369-9) NRBC/100 WBC (test See_Comment [Automat ed message] code = 1498977177) The syste m which generated this result transmitted ref erence range: 0.0 - 10 .0 /100 WBCs. The refer ence range was not u sed to interpret this result as normal/abnor mal. NRBC x10^3 (test <0.01 See_Comment [Automated message] code = 2194759563) The syste m which generated this result transmitted ref erence range: 10*3/?L. The reference range was not used to interpr et this result as normal/abnormal . GRAN MAT (NEUT) % 53.4 % (test code = 770-8) IMM GRAN % (test 0.30 % code = 0569512152) LYMPH % (test code 35.3 % = 736-9) MONO % (test code 7.4 % = 5905-5) EOS % (test code = 3.3 % 713-8) BASO % (test code 0.3 % = 706-2) GRAN MAT 3.59 10*3/uL 1.99-6.95 x10^3(ANC) (test code = 8448749744) IMM GRAN x10^3 <0.03 0.00-0.06 (test code = 2059171063) LYMPH x10^3 (test 2.37 10*3/uL 1.09-3.23 code = 731-0) MONO x10^3 (test 0.50 10*3/uL 0.36-1.02 code = 742-7) EOS x10^3 (test 0.22 10*3/uL 0.06-0.53 code = 711-2) BASO x10^3 (test <0.03 0.01-0.09 code = 704-7) [facility] GLUCOSE (AUTOMATED)2021-12-18 16:50:23 Test Item Value Reference Range Interpretation Comments POCT GLU (test code = 1408550994) 304 mg/dL 70-110 H Lab Interpretation (test code = Abnormal 81329-1) [facility] GLUCOSE (AUTOMATED)2021-12-18 12:58:13 Test Item Value Reference Range Interpretation Comments POCT GLU (test code = 5659148051) 364 mg/dL 70-110 H Lab Interpretation (test code = Abnormal 56308-6) [facility] GLUCOSE (AUTOMATED)2021-12-18 09:42:05 Test Item Value Reference Range Interpretation Comments POCT GLU (test code = 9131271294) 369 mg/dL 70-110 H Lab Interpretation (test code = Abnormal 07840-4) [facility] GLUCOSE (AUTOMATED)2021-12-18 05:09:33 Test Item Value Reference Range Interpretation Comments POCT GLU (test code = 0213808336) 332 mg/dL 70-110 H Lab Interpretation (test code = Abnormal 80492-0) [facility] GLUCOSE (AUTOMATED)2021-12-18 01:27:31 Test Item Value Reference Range Interpretation Comments POCT GLU (test code = 3541145834) 349 mg/dL 70-110 H Lab Interpretation (test code = Abnormal 99811-0) [facility] GLUCOSE (AUTOMATED)2021-12-17 21:42:26 Test Item Value Reference Range Interpretation Comments POCT GLU (test code = 3643322105) 372 mg/dL 70-110 H Lab Interpretation (test code = Abnormal 77140-7) [facility] GLUCOSE (AUTOMATED)2021-12-17 17:17:16 Test Item Value Reference Range Interpretation Comments POCT GLU (test code = 2922935812) 329 mg/dL 70-110 H Lab Interpretation (test code = Abnormal 84739-7) [facility] GLUCOSE (AUTOMATED)2021-12-17 14:09:34 Test Item Value Reference Range Interpretation Comments POCT GLU (test code = 1975691171) 350 mg/dL 70-110 H Lab Interpretation (test code = Abnormal 04815-1) [facility] GLUCOSE (AUTOMATED)2021-12-17 09:59:20 Test Item Value Reference Range Interpretation Comments POCT GLU (test code = 7104818422) 342 mg/dL 70-110 H Lab Interpretation (test code = Abnormal 59069-7) [facility] GLUCOSE (AUTOMATED)2021-12-17 01:46:05 Test Item Value Reference Range Interpretation Comments POCT GLU (test code = 9822983933) 318 mg/dL 70-110 H Lab Interpretation (test code = Abnormal 67526-2) [facility] GLUCOSE (AUTOMATED)2021-12-16 21:25:33 Test Item Value Reference Range Interpretation Comments POCT GLU (test code = 4891004321) 212 mg/dL 70-110 H Lab Interpretation (test code = Abnormal 02614-0) [facility] GLUCOSE (AUTOMATED)2021-12-16 16:27:52 Test Item Value Reference Range Interpretation Comments POCT GLU (test code = 5465096733) 226 mg/dL 70-110 H Lab Interpretation (test code = Abnormal 16222-6) [facility] GLUCOSE (AUTOMATED)2021-12-16 15:37:46 Test Item Value Reference Range Interpretation Comments POCT GLU (test code = 0938958596) 204 mg/dL 70-110 H Lab Interpretation (test code = Abnormal 83897-2) [facility] GLUCOSE (AUTOMATED)2021-12-16 14:39:25 Test Item Value Reference Range Interpretation Comments POCT GLU (test code = 1754871649) 185 mg/dL 70-110 H Lab Interpretation (test code = Abnormal 57476-3) [facility] Metabolic Panel (Na, K, Cl, CO2, Glucose, BUN, Creatinine, Ca)2021-12-16 14:07:03 Test Item Value Reference Range Interpretation Comments NA (test code = 137 mmol/L 135-145 1056351654) K (test code = 4.6 mmol/L 3.5-5.0 1254147682) CL (test code = 111 mmol/L 98-108 H 6929375499) CO2 TOTAL (test code = 22 mmol/L 23-31 L 2858920082) AGAP (test code = 2-16 7730040696) BUN (test code = 12 mg/dL 7-23 9033527828) GLUCOSE (test code = 181 mg/dL 70-110 H 0425517308) CREATININE (test code = 0.70 mg/dL 0.60-1.25 8178990464) CALCIUM (test code = 8.3 mg/dL 8.6-10.6 L 5684328174) eGFR (test code = mL/min/1.73m2 8367927120) ARPITA (test code = ARPITA) Association of [...] tests). Lab Interpretation Abnormal (test code = 87241-1) [facility] GLUCOSE (AUTOMATED)2021-12-16 13:45:48 Test Item Value Reference Range Interpretation Comments POCT GLU (test code = 5518362166) 170 mg/dL 70-110 H Lab Interpretation (test code = Abnormal 20666-6) [facility] GLUCOSE (AUTOMATED)2021-12-16 12:28:12 Test Item Value Reference Range Interpretation Comments POCT GLU (test code = 4413406564) 109 mg/dL 70-110 Lab Interpretation (test code = Normal 29435-0) [facility] GLUCOSE (AUTOMATED)2021-12-16 11:25:37 Test Item Value Reference Range Interpretation Comments POCT GLU (test code = 0111337155) 134 mg/dL 70-110 H Lab Interpretation (test code = Abnormal 57944-2) [facility] Metabolic Panel (Na, K, Cl, CO2, Glucose, BUN, Creatinine, Ca)2021-12-16 10:50:17 Test Item Value Reference Range Interpretation Comments NA (test code = 138 mmol/L 135-145 1828782838) K (test code = 5.1 mmol/L 3.5-5.0 H Slight 1191909454) hemolysis CL (test code = 110 mmol/L 98-108 H 1865564597) CO2 TOTAL (test code 23 mmol/L 23-31 = 7642241092) AGAP (test code = 2-16 0100980482) BUN (test code = 13 mg/dL 7-23 Slight 2342765173) hemolysis GLUCOSE (test code = 131 mg/dL 70-110 H 8535574127) CREATININE (test code 0.73 mg/dL 0.60-1.25 = 5408631634) CALCIUM (test code = 8.9 mg/dL 8.6-10.6 3490839046) eGFR (test code = mL/min/1.73m2 5004883031) ARPITA (test code = ARPITA) Association of [...] tests). Lab Interpretation Abnormal (test code = 29715-6) [facility] GLUCOSE (AUTOMATED)2021-12-16 10:35:11 Test Item Value Reference Range Interpretation Comments POCT GLU (test code = 1660870911) 125 mg/dL 70-110 H Lab Interpretation (test code = Abnormal 71830-5) [facility] GLUCOSE (AUTOMATED)2021-12-16 09:31:05 Test Item Value Reference Range Interpretation Comments POCT GLU (test code = 5064940633) 137 mg/dL 70-110 H Lab Interpretation (test code = Abnormal 50525-7) [facility] GLUCOSE (AUTOMATED)2021-12-16 08:28:48 Test Item Value Reference Range Interpretation Comments POCT GLU (test code = 0743740326) 168 mg/dL 70-110 H Lab Interpretation (test code = Abnormal 44747-3) [facility]21-[facility]-16 07:26:17 Test Item Value Reference Range Interpretation Comments POCT GLU (test code = 4606793380) 165 mg/dL 70-110 H Lab Interpretation (test code = Abnormal 92762-2) [facility] Metabolic Panel (Na, K, Cl, CO2, Glucose, BUN, Creatinine, Ca)2021-12-16 07:18:59 Test Item Value Reference Range Interpretation Comments NA (test code = 136 mmol/L 135-145 6848734899) K (test code = 5.1 mmol/L 3.5-5.0 H 2257102302) CL (test code = 108 mmol/L 98-108 4788737596) CO2 TOTAL (test code = 24 mmol/L 23-31 0474770252) AGAP (test code = 2-16 4637449796) BUN (test code = 14 mg/dL 7-23 5221687463) GLUCOSE (test code = 202 mg/dL 70-110 H 6267266169) CREATININE (test code = 0.79 mg/dL 0.60-1.25 1767642467) CALCIUM (test code = 8.9 mg/dL 8.6-10.6 5025367586) eGFR (test code = mL/min/1.73m2 6056010382) ARPITA (test code = ARPITA) Association of [...] tests). Lab Interpretation Abnormal (test code = 46367-2) [facility] PZTUWKP-[id number] 06:57:08 Test Item Value Reference Range Interpretation Comments BOH (test code = <0.1 mmol/L 2176362073) ARPITA (test code = Normal Ranges: ? ? ARPITA) Nonfasting ? Less than 0.1 mmol/L ? ? Overnight Fast ? ? ? Less than 0.4 mmol/L ? ? Fasting (1-2 weeks) ?6-8 mmol/L Test developed and characteristics determined by [facility] Laboratory Services. [facility] GLUCOSE (AUTOMATED)2021-12-16 06:24:07 Test Item Value Reference Range Interpretation Comments POCT GLU (test code = 1416166128) 212 mg/dL 70-110 H Lab Interpretation (test code = Abnormal 90183-5) [facility] GLUCOSE (AUTOMATED)2021-12-16 05:28:19 Test Item Value Reference Range Interpretation Comments POCT GLU (test code = 1568726833) 239 mg/dL 70-110 H Lab Interpretation (test code = Abnormal 55751-3) [facility] GLUCOSE (AUTOMATED)2021-12-16 04:29:31 Test Item Value Reference Range Interpretation Comments POCT GLU (test code = 0585118321) 251 mg/dL 70-110 H Lab Interpretation (test code = Abnormal 88538-2) [facility] (Na, K, Cl, CO2, Glucose, BUN, Creatinine, Ca)2021-12-16 03:49:55 Test Item Value Reference Range Interpretation Comments NA (test code = 141 mmol/L 135-145 8185851075) K (test code = 4.2 mmol/L 3.5-5.0 9633325292) CL (test code = 108 mmol/L 98-108 0865829213) CO2 TOTAL (test code = 26 mmol/L 23-31 7766460693) AGAP (test code = 2-16 0405070957) BUN (test code = 14 mg/dL 7-23 3821710588) GLUCOSE (test code = 164 mg/dL 70-110 H 3791160831) CREATININE (test code = 0.84 mg/dL 0.60-1.25 1056263801) CALCIUM (test code = 9.3 mg/dL 8.6-10.6 8294649712) eGFR (test code = mL/min/1.73m2 1944508210) ARPITA (test code = ARPITA) Association of [...] tests). Lab Interpretation Abnormal (test code = 45372-5) [facility] GLUCOSE (AUTOMATED)2021-12-16 03:20:15 Test Item Value Reference Range Interpretation Comments POCT GLU (test code = 6955013251) 174 mg/dL 70-110 H Lab Interpretation (test code = Abnormal 53644-4) [facility] GLUCOSE (AUTOMATED)2021-12-16 02:25:54 Test Item Value Reference Range Interpretation Comments POCT GLU (test code = 0986402627) 158 mg/dL 70-110 H Lab Interpretation (test code = Abnormal 92303-7) [facility] GLUCOSE (AUTOMATED)2021-12-16 01:37:09 Test Item Value Reference Range Interpretation Comments POCT GLU (test code = 2614406314) 219 mg/dL 70-110 H Lab Interpretation (test code = Abnormal 33869-9) [facility] GLUCOSE (AUTOMATED)2021-12-16 00:19:48 Test Item Value Reference Range Interpretation Comments POCT GLU (test code = 2922637611) 345 mg/dL 70-110 H Lab Interpretation (test code = Abnormal 72452-3) [facility] GLUCOSE (AUTOMATED)2021-12-15 22:59:57 Test Item Value Reference Range Interpretation Comments POCT GLU (test code = 4001512719) 318 mg/dL 70-110 H Lab Interpretation (test code = Abnormal 31379-5) [facility] Metabolic Panel (Na, K, Cl, CO2, Glucose, BUN, Creatinine, Ca)2021-12-15 22:41:00 Test Item Value Reference Range Interpretation Comments NA (test code = 140 mmol/L 135-145 7639239545) K (test code = 3.1 mmol/L 3.5-5.0 L 5267226422) CL (test code = 116 mmol/L 98-108 H 5173308516) CO2 TOTAL (test code = 21 mmol/L 23-31 L 8737724337) AGAP (test code = 2-16 8082398129) BUN (test code = 12 mg/dL 7-23 0304056001) GLUCOSE (test code = 281 mg/dL 70-110 H 9316002205) CREATININE (test code = 0.62 mg/dL 0.60-1.25 2388943823) CALCIUM (test code = 7.2 mg/dL 8.6-10.6 L 8815763402) eGFR (test code = mL/min/1.73m2 5525387427) ARPITA (test code = ARPITA) Association of [...] tests). Lab Interpretation Abnormal (test code = 73539-0) [facility] GLUCOSE (AUTOMATED)2021-12-15 21:53:29 Test Item Value Reference Range Interpretation Comments POCT GLU (test code = 1887824760) 368 mg/dL 70-110 H Lab Interpretation (test code = Abnormal 77175-4) [facility] GLUCOSE (AUTOMATED)2021-12-15 20:41:51 Test Item Value Reference Range Interpretation Comments POCT GLU (test code = 1304449065) 458 mg/dL 70-110 HH Lab Interpretation (test code = Abnormal 27936-3) [facility] GLUCOSE (AUTOMATED)2021-12-15 19:00:13 Test Item Value Reference Range Interpretation Comments POCT GLU (test code = 4596992572) 369 mg/dL 70-110 H Lab Interpretation (test code = Abnormal 32187-5) [facility] (Na, K, Cl, CO2, Glucose, BUN, Creatinine, Ca)2021-12-15 18:32:29 Test Item Value Reference Range Interpretation Comments NA (test code = 145 mmol/L 135-145 0800491684) K (test code = 4.8 mmol/L 3.5-5.0 Slight 0228109106) hemolysis CL (test code = 112 mmol/L 98-108 H 8974913814) CO2 TOTAL (test code 26 mmol/L 23-31 = 6655214275) AGAP (test code = 2-16 2106895444) BUN (test code = 16 mg/dL 7-23 Slight 1637474069) hemolysis GLUCOSE (test code = 282 mg/dL 70-110 H 6815842758) CREATININE (test code 0.83 mg/dL 0.60-1.25 = 2687083908) CALCIUM (test code = 10.0 mg/dL 8.6-10.6 8413939653) eGFR (test code = mL/min/1.73m2 7663948322) ARPITA (test code = ARPITA) Association of [...] tests). Lab Interpretation Abnormal (test code = 90445-7) [facility] GLUCOSE (AUTOMATED)2021-12-15 17:45:09 Test Item Value Reference Range Interpretation Comments POCT GLU (test code = 7911399900) 284 mg/dL 70-110 H Lab Interpretation (test code = Abnormal 77546-1) [facility]ahydroxy-Pygypxcw6174-91-99 16:41:13 Test Item Value Reference Range Interpretation Comments BOH (test code = 0.9 mmol/L 4971941492) ARPITA (test code = Normal Ranges: ? ? ARPITA) Nonfasting ? Less than 0.1 mmol/L ? ? Overnight Fast ? ? ? Less than 0.4 mmol/L ? ? Fasting (1-2 weeks) ?6-8 mmol/L Test developed and characteristics determined by [facility] Laboratory Services. [facility] GLUCOSE (AUTOMATED)2021-12-15 16:33:41 Test Item Value Reference Range Interpretation Comments POCT GLU (test code = 5373715760) 266 mg/dL 70-110 H Lab Interpretation (test code = Abnormal 32023-3) [facility] GLUCOSE (AUTOMATED)2021-12-15 15:30:41 Test Item Value Reference Range Interpretation Comments POCT GLU (test code = 9604360645) 294 mg/dL 70-110 H Lab Interpretation (test code = Abnormal 20452-3) [facility] GLUCOSE (AUTOMATED)2021-12-15 14:23:40 Test Item Value Reference Range Interpretation Comments POCT GLU (test code = 5889309150) 511 mg/dL 70-110 HH Lab Interpretation (test code = Abnormal 87786-8) [facility] WITHOUT [id number] 13:55:53 Test Item Value Reference Range Interpretation Comments WBC (test code = 6690-2) See_Comment H [A utomated message] The system [employer] generated this result transmit lester reference range : 4.20 - 10.70 10*3/?L. The reference range was not used to interpret this result as normal/abnormal . RBC (test code = 789-8) See_Comment H [Au tomated message] The system [facility] generated this result transmit lester reference range [...] See_Comment H [Au tomated message] The system [facility] generated this result transmit lester reference range : 150 - 328 10*3/?L. The reference range was not used to interpret this result as normal/abnormal . MPV (test code = 11.0 fL 9.8-13.0 33302-5) RDW-CV (test code = 14.2 % 12.1-15.4 788-0) RDW-SD (test code = 44.8 fL 38.5-51.6 99443-7) NRBC x10^3 (test code = <0.01 See_Comment [Au tomated message] 5923809683) The system [facility] generated this result transmit lester reference range : 10*3/?L. The reference range was not used to interpret this result as normal/abnormal . NRBC/100 WBC (test code See_Comment [Au tomated message] = 6215134585) The system [facility] generated this result transmit lester reference range : 0.0 - 10.0 /100 WBC s. The reference r boubacar was not used to interpret this result as normal/abnormal . IPF % (test code = 7079470682) Lab Interpretation (test Abnormal code = 68229-2) [facility] GLUCOSE (AUTOMATED)2021-12-15 13:34:21 Test Item Value Reference Range Interpretation Comments POCT GLU (test code = 0257214218) 538 mg/dL 70-110 HH Lab Interpretation (test code = Abnormal 84279-7) [facility] GLUCOSE (AUTOMATED)2021-12-15 13:30:43 Test Item Value Reference Range Interpretation Comments POCT GLU (test code = 6058902040) >600 70-110 HH Lab Interpretation (test code = Abnormal 97608-5) [facility] GLUCOSE (AUTOMATED)2021-12-15 13:30:43 Test Item Value Reference Range Interpretation Comments POCT GLU (test code = 3596501293) >600 70-110 HH Lab Interpretation (test code = Abnormal 97938-8) [facility] GLUCOSE (AUTOMATED)2021-12-15 13:30:43 Test Item Value Reference Range Interpretation Comments POCT GLU (test code = >600 70-110 HH Notifi ed Provider 0112677956) Lab Interpretation (test Abnormal code = 41230-4) [facility] GLUCOSE (AUTOMATED)2021-12-15 13:30:43 Test Item Value Reference Range Interpretation Comments POCT GLU (test code = 0810480043) >600 70-110 HH Lab Interpretation (test code = Abnormal 58509-5) [facility] GLUCOSE (AUTOMATED)2021-12-15 13:30:38 Test Item Value Reference Range Interpretation Comments POCT GLU (test code = 6063873777) >600 70-110 HH Lab Interpretation (test code = Abnormal 57226-0) [facility] GLUCOSE (AUTOMATED)2021-12-15 13:30:38 Test Item Value Reference Range Interpretation Comments POCT GLU (test code = 8623888699) >600 70-110 HH Lab Interpretation (test code = Abnormal 31722-0) [facility] HospitalOsmolality Gzpmv8287-98-88 12:37:44 Test Item Value Reference Range Interpretation Comments OSMOLALITY (test code = See_Comment HH [Au tomated message] 2692-2) The system [employer] generated this result transmitted ref erence range: 278 - 30 5 mOsm/kg. The reference range was not used to int erpret this result as normal/abnormal . Lab Interpretation (test Abnormal code = 38058-3) [facility] Metabolic Panel (Na, K, Cl, CO2, Glucose, BUN, Creatinine, Ca)2021-12-15 12:23:35 Test Item Value Reference Range Interpretation Comments NA (test code = 145 mmol/L 135-145 6504587624) K (test code = 4.4 mmol/L 3.5-5.0 9495922572) CL (test code = 109 mmol/L 98-108 H 3395349351) CO2 TOTAL (test code = 21 mmol/L 23-31 L 0879360890) AGAP (test code = 2-16 5765660645) BUN (test code = 15 mg/dL 7-23 3429902940) GLUCOSE (test code = 753 mg/dL 70-110 HH 5749606298) CREATININE (test code = 0.79 mg/dL 0.60-1.25 9130634246) CALCIUM (test code = 10.9 mg/dL 8.6-10.6 H 4498219041) eGFR (test code = mL/min/1.73m2 0084889114) ARPITA (test code = ARPITA) Association of [...] tests). Lab Interpretation Abnormal (test code = 02225-6) [facility]21-[facility]-15 12:14:56 Test Item Value Reference Range Interpretation Comments POCT GLU (test code = 2080345731) 564 mg/dL 70-110 HH Lab Interpretation (test code = Abnormal 34273-9) [facility] HospitalMagnesium Thqqc7440-39-90 12:05:40 Test Item Value Reference Range Interpretation Comments MAGNESIUM (test code = 0655536984) 2.5 mg/dL 1.7-2.4 H Lab Interpretation (test code = Abnormal 70663-3) [facility]05:20 Test Item Value Reference Range Interpretation Comments MAGNESIUM (test code = 2340849726) 2.5 mg/dL 1.7-2.4 H Lab Interpretation (test code = Abnormal 36250-9) [facility] HospitalPhosphorus Kotah6090-20-91 12:05:20 Test Item Value Reference Range Interpretation Comments PHOSPHORUS (test code = 4502789553) 6.2 mg/dL 2.5-5.0 H Lab Interpretation (test code = Abnormal 23311-0) [facility] PANEL 21 + LACTIC [id number] 05:53:48 Test Item Value Reference Range Interpretation Comments PH (test code = 7.32-7.42 8427703475) PCO2 STEVO (test code See_Comment [Automa lester = 4665713875) message] The system which generated this result transmitted reference range : 41 - 51 mmHg. T he reference range was not used to interpret this result as normal/abnormal . PO2 STEVO (test code = See_Comment HH [Autom ated 0775282736) message] The system which generated this result transmitted reference range : 25 - 40 mmHg. T he reference range was not used to interpret this result as normal/abnormal . HCO3 STEVO (test code See_Comment L [Automa lester = 2496222970) message] The system which generated this result transmitted reference range : 24 - 28 mEq/L. The reference range was not used to interpr et this result as normal/abnormal . AC VBE(BEAKER) (test mEq/L code = 0337847716) THB STEVO (test code = 17.7 g/dL 13.5-18.0 1076817299) %O2HB STEVO (test code 93.8 % 52.0-63.0 H = 3287736636) %COHB STEVO (test code 2.1 % 0.0-1.5 H = 0987022518) %METHB STEVO (test 0.1 % 0.4-1.5 L code = 4509696461) VOL%O2 STEVO (test 23.3 % 6.0-12.0 H code = 8982458378) NA (test code = 142 mmol/L 135-145 5356954546) K+ (test code = 4.4 mmol/L 3.5-5.0 5360332973) AC CA IONZ (test 5.40 mg/dL 4.50-5.30 H code = 4390873092) GLUCOSE (test code = <20 70-110 LL 2555249604) LACTIC ACID (test 3.37 mmol/L 0.50-2.20 H code = 9940036005) ARPITA (test code = *ac gluc ARPITA) unmeasurable Lab Interpretation Abnormal (test code = 26044-8) [facility]. METABOLIC PANEL ([id number])2021-12-15 04:59:53 Test Item Value Reference Range Interpretation Comments NA (test code = 140 mmol/L 135-145 8405073155) K (test code = 4.8 mmol/L 3.5-5.0 7207201602) CL (test code = 100 mmol/L 98-108 6307330492) CO2 TOTAL (test code = 20 mmol/L 23-31 L 8758420361) AGAP (test code = 2-16 H 9632447681) BUN (test code = 14 mg/dL 7-23 5353422561) GLUCOSE (test code = 1083 mg/dL 70-110 HH 6808359248) CREATININE (test code = 0.80 mg/dL 0.60-1.25 4762938454) TOTAL BILI (test code = 1.0 mg/dL 0.1-1.0 8232280670) CALCIUM (test code = 12.0 mg/dL 8.6-10.6 H 7885774568) T PROTEIN (test code = 8.1 g/dL 6.3-8.2 1911070610) ALBUMIN (test code = 4.7 g/dL 3.5-5.0 7193140965) ALK PHOS (test code = 173 U/L 34-122 H 4574835454) ALTv (test code = 36 U/L 5-50 1742-6) AST(SGOT) (test code = 18 U/L 13-40 5263080236) eGFR (test code = mL/min/1.73m2 0674923818) ARPITA (test code = ARPITA) Association of [...] tests). Lab Interpretation Abnormal (test code = 25435-0) [facility] [id number] 03:51:43 Test Item Value Reference Interpretation Comments Range TROPONIN I (test <0.012 See_Comment [Automated code = 8595843337) message] The system which generated this result [...] biotin. Lab Interpretation Normal (test code = 37292-0) [facility] [id number] 03:48:23 Test Item Value Reference Range Interpretation Comments NT-proBNP (test code 71 pg/mL See_Comment [Autom ated = 6424661790) message] The system which generated this result transmitted reference range : <=125. The reference range was not used to interpret this result as normal/abnormal . ARPITA (test code = ARPITA) Biotin has been reported to cause a negative bias, interpret results relative to patient's use of biotin. Lab Interpretation Normal (test code = 24463-0) [facility] [id number] 03:48:23 Test Item Value Reference Range Interpretation Comments NT-proBNP (test code 71 pg/mL See_Comment [Autom ated = 2929029134) message] The system which generated this result transmitted reference range : <=125. The reference range was not used to interpret this result as normal/abnormal . ARPITA (test code = ARPITA) Biotin has been reported to cause a negative bias, interpret results relative to patient's use of biotin. Lab Interpretation Normal (test code = 14256-4) [facility] 03:39:44 Test Item Value Reference Range Interpretation Comments LIPASE (test code = 5018961677) 120 U/L 0-220 Lab Interpretation (test code = Normal 50181-9) [facility] [id number] 03:38:23 Test Item Value Reference Range Interpretation Comments APTT Patient (test See_Comment [Automat ed code = 3173-2) message] The system which generated this result transmitted reference range : 23 - 38 Seconds . The reference range was not used to interpr et this result as normal/abnormal . ARPITA (test code = ARPITA) The [facility] patient population mean normal value for aPTT is 30 seconds. Lab Interpretation Normal (test code = 79667-5) [facility] [id number] 03:38:23 Test Item Value Reference Range Interpretation Comments APTT Patient (test See_Comment [Automat ed code = 3173-2) message] The system which generated this result transmitted reference range : 23 - 38 Seconds . The reference range was not used to interpr et this result as normal/abnormal . ARPITA (test code = ARPITA) The [facility] patient population mean normal value for aPTT is 30 seconds. Lab Interpretation Normal (test code = 88594-8) [facility]PROTHROMBIN [facility] / [id number] 03:36:22 Test Item Value Reference Range Interpretation [...] tions. Lab Interpretation (test Normal code = 07485-3) [facility]CBC WITH [id number] 03:35:42 Test Item Value Reference Range Interpretation Comments WBC (test code = See_Comment H [Automated 3290-2) message] The system which generated this result transmit lester reference range : 4.20 - 10.70 10*3/?L. The reference range was not used to interpret this result as normal/abnormal . RBC (test code = See_Comment H [Automated 079-8) message] The system which generated this result [...] RDW-SD (test code = 44.7 fL 38.5-51.6 42145-4) RDW-CV (test code = 14.2 % 12.1-15.4 788-0) PLT (test code = See_Comment H [Automated 777-3) message] The system which generated this result transmit lester reference range : 150 - 328 10*3/ ?L. The reference range was not u sed to interpret th is result as normal/abnormal . MPV (test code = 11.5 fL 9.8-13.0 16603-0) NRBC/100 WBC (test See_Comment [Automat ed code = 0342759285) message] The system which generated this result transmit lester reference range : 0.0 - 10.0 /100 WBCs. The reference range was not used to interpret this result as normal/abnormal . NRBC x10^3 (test code <0.01 See_Comment [Auto mated = 8978035278) message] The system which generated this result transmit lester reference range : 10*3/?L. The reference range was not used to interpret this result as normal/abnormal . GRAN MAT (NEUT) % 85.2 % (test code = 770-8) IMM GRAN % (test code 0.90 % = 4180542900) LYMPH % (test code = 5.9 % 736-9) MONO % (test code = 7.8 % 5905-5) EOS % (test code = 0.0 % 713-8) BASO % (test code = 0.2 % 706-2) GRAN MAT x10^3(ANC) 12.85 10*3/uL 1.99-6.95 H (test code = 8246557564) IMM GRAN x10^3 (test 0.13 10*3/uL 0.00-0.06 H code = 0621227335) LYMPH x10^3 (test code 0.89 10*3/uL 1.09-3.23 L = 731-0) MONO x10^3 (test code 1.17 10*3/uL 0.36-1.02 H = 742-7) EOS x10^3 (test code = <0.03 0.06-0.53 L 711-2) BASO x10^3 (test code 0.03 10*3/uL 0.01-0.09 = 704-7) Lab Interpretation Abnormal (test code = 68312-8) [facility] HospitalLactic Acid Whole [id number] 03:22:23 Test Item Value Reference Range Interpretation Comments LACTIC ACID (test code = 4.52 mmol/L 0.50-2.20 H 0957361162) Lab Interpretation (test code = Abnormal 96843-3) [facility] METABOLIC PANEL (NA, K, CL, CO2, GLUCOSE, BUN, CREATININE, CA)2021-11-28 11:13:09 Test Item Value Reference Range Interpretation Comments NA (test code = 137 mmol/L 135-145 1732213123) K (test code = 4.8 mmol/L 3.5-5.0 4263086533) CL (test code = 101 mmol/L 98-108 5154510925) CO2 TOTAL (test code = 24 mmol/L 23-31 8053967804) AGAP (test code = 2-16 4626877025) BUN (test code = 17 mg/dL 7-23 6368059748) GLUCOSE (test code = 323 mg/dL 70-110 H 6032566633) CREATININE (test code = 0.56 mg/dL 0.60-1.25 L 3390391085) CALCIUM (test code = 9.6 mg/dL 8.6-10.6 8646399427) eGFR (test code = mL/min/1.73m2 9381990796) ARPITA (test code = ARPITA) Association of [...] tests). Lab Interpretation Abnormal (test code = 72128-7) [facility] WITH [id number] 10:49:07 Test Item Value Reference Range Interpretation Comments WBC (test code = See_Comment H [Automated 1806-2) message] The sy stem which generated this result transmitted reference range : 4.20 - 10.70 10*3/?L. The reference range was not used to interpret this result as normal/abnormal . RBC (test code = See_Comment [Automated 517-8) message] The sy stem which generated this [...] RDW-SD (test code = 46.7 fL 38.5-51.6 24937-8) RDW-CV (test code = 14.5 % 12.1-15.4 788-0) PLT (test code = See_Comment H [Automated 777-3) message] The sy stem which generated this result transmitted reference range : 150 - 328 10*3/ ?L. The reference r boubacar was not used to interpret this result as normal/abnormal . MPV (test code = 10.2 fL 9.8-13.0 30014-7) NRBC/100 WBC (test See_Comment [Automat ed code = 5077164101) message] The system which generated this result transmitted reference range : 0.0 - 10.0 /100 WBCs. The refer ence range was not u sed to interpret th is result as normal/abnormal . NRBC x10^3 (test code <0.01 See_Comment [Auto mated = 6553321507) message] The s ystem which generated this result transmitted reference range : 10*3/?L. The reference range was not used to interpret this result as normal/abnormal . GRAN MAT (NEUT) % 70.2 % (test code = 770-8) IMM GRAN % (test code 0.80 % = 0650370839) LYMPH % (test code = 18.0 % 736-9) MONO % (test code = 8.5 % 5905-5) EOS % (test code = 2.1 % 713-8) BASO % (test code = 0.4 % 706-2) GRAN MAT x10^3(ANC) 7.63 10*3/uL 1.99-6.95 H (test code = 8542646527) IMM GRAN x10^3 (test 0.09 10*3/uL 0.00-0.06 H code = 6370317379) LYMPH x10^3 (test code 1.96 10*3/uL 1.09-3.23 = 731-0) MONO x10^3 (test code 0.92 10*3/uL 0.36-1.02 = 742-7) EOS x10^3 (test code = 0.23 10*3/uL 0.06-0.53 711-2) BASO x10^3 (test code 0.04 10*3/uL 0.01-0.09 = 704-7) Lab Interpretation Abnormal (test code = 63904-6) [facility] METABOLIC PANEL (NA, K, CL, CO2, GLUCOSE, BUN, CREATININE, CA)2021-11-27 09:48:58 Test Item Value Reference Range Interpretation Comments NA (test code = 135 mmol/L 135-145 2043003085) K (test code = 4.7 mmol/L 3.5-5.0 1095040755) CL (test code = 101 mmol/L 98-108 8075483169) CO2 TOTAL (test code = 23 mmol/L 23-31 5110350350) AGAP (test code = 2-16 7387334982) BUN (test code = 18 mg/dL 7-23 8843592867) GLUCOSE (test code = 346 mg/dL 70-110 H 7647741861) CREATININE (test code = 0.64 mg/dL 0.60-1.25 6011859917) CALCIUM (test code = 9.1 mg/dL 8.6-10.6 1841648723) eGFR (test code = mL/min/1.73m2 8750959007) ARPITA (test code = ARPITA) Association of [...] tests). Lab Interpretation Abnormal (test code = 69838-4) [facility] WITH [id number] 09:06:55 Test Item Value Reference Range Interpretation Comments WBC (test code = See_Comment [Automated 5947-2) message] The sy stem which generated this result transmitted reference range : 4.20 - 10.70 10*3/?L. The reference range was not used to interpret this result as normal/abnormal . RBC (test code = See_Comment [Automated 659-8) message] The sy stem which generated this [...] RDW-SD (test code = 47.7 fL 38.5-51.6 46950-1) RDW-CV (test code = 14.6 % 12.1-15.4 788-0) PLT (test code = See_Comment [Automated 777-3) message] The sy stem which generated this result transmitted reference range : 150 - 328 10*3/ ?L. The reference r boubacar was not used to interpret this result as normal/abnormal . MPV (test code = 9.9 fL 9.8-13.0 33066-6) NRBC/100 WBC (test See_Comment [Automat ed code = 6125221187) message] The system which generated this result transmitted reference range : 0.0 - 10.0 /100 WBCs. The refer ence range was not u sed to interpret th is result as normal/abnormal . NRBC x10^3 (test code <0.01 See_Comment [Auto mated = 4437163451) message] The s ystem which generated this result transmitted reference range : 10*3/?L. The reference range was not used to interpret this result as normal/abnormal . GRAN MAT (NEUT) % 62.6 % (test code = 770-8) IMM GRAN % (test code 1.30 % = 3564048908) LYMPH % (test code = 23.2 % 736-9) MONO % (test code = 9.6 % 5905-5) EOS % (test code = 2.9 % 713-8) BASO % (test code = 0.4 % 706-2) GRAN MAT x10^3(ANC) 5.85 10*3/uL 1.99-6.95 (test code = 1138945818) IMM GRAN x10^3 (test 0.12 10*3/uL 0.00-0.06 H code = 6943333763) LYMPH x10^3 (test code 2.17 10*3/uL 1.09-3.23 = 731-0) MONO x10^3 (test code 0.90 10*3/uL 0.36-1.02 = 742-7) EOS x10^3 (test code = 0.27 10*3/uL 0.06-0.53 711-2) BASO x10^3 (test code 0.04 10*3/uL 0.01-0.09 = 704-7) Lab Interpretation Abnormal (test code = 67816-9) [facility] [id number] 02:01:46 Test Item Value Reference Range Interpretation Comments Blood Culture-Aerobic No organisms No growth Previo us (test code = 47037-3) isolated prelim inary verified result was Culture In Progress on 11/22/2021 at 00 01 CDTPrevious preliminary verified result was No growth a t 24 hours on 11/22/2021 at 21 01 CDTPrevious preliminary verified result was No growth a t 48 hours on 11/23/2021 at 04 08 CDTPrevious preliminary verified result was No growth a t 72 hours on 11/24/2021 at 21 01 CDT Blood No organisms No growth Previous Culture-Anaerobic isolated preliminar y (test code = 69460-7) verifi ed result was Culture In Progress on 11/22/2021 at 00 CDTPrevious preliminary verified result was No growth a t 24 hours on 11/22/2021 at 21 CDTPrevious preliminary verified result was No growth a t 48 hours on 11/23/2021 at 04 08 CDTPrevious preliminary verified result was No growth a t 72 hours on 11/24/2021 at 04 08 CDT Lab Interpretation Normal (test code = 69272-6) [facility] [id number] 02:01:46 Test Item Value Reference Range Interpretation Comments Blood Culture-Aerobic No organisms No growth Previo us (test code = 52929-7) isolated prelim inary verified result was Culture In Progress on 11/22/2021 at 00 CDTPrevious preliminary verified result was No growth a t 24 hours on 11/22/2021 at 04 08 CDTPrevious preliminary verified result was No growth a t 48 hours on 11/23/2021 at 04 08 CDTPrevious preliminary verified result was No growth a t 72 hours on 11/24/2021 at 21 01 CDT Blood No organisms No growth Previous Culture-Anaerobic isolated preliminar y (test code = 04933-7) verifi ed result was Culture In Progress on 11/22/2021 at 00 01 CDTPrevious preliminary verified result was No growth a t 24 hours on 11/22/2021 at 04 08 CDTPrevious preliminary verified result was No growth a t 48 hours on 11/23/2021 at 04 08 CDTPrevious preliminary verified result was No growth a t 72 hours on 11/24/2021 at 21 01 CDT Lab Interpretation Normal (test code = 50260-2) [facility] [id number] 12:18:49 Test Item Value Reference Range Interpretation Comments NT-proBNP (test code 117 pg/mL See_Comment [Autom ated = 4160810205) message] The system which generated this result transmitted reference range : <=125. The reference range was not used to interpret this result as normal/abnormal . ARPITA (test code = ARPITA) Biotin has been reported to cause a negative bias, interpret results relative to patient's use of biotin. Lab Interpretation Normal (test code = 29268-6) [facility]. METABOLIC PANEL ([id number])2021-11-24 12:10:25 Test Item Value Reference Range Interpretation Comments NA (test code = 137 mmol/L 135-145 9231868576) K (test code = 4.6 mmol/L 3.5-5.0 5519926010) CL (test code = 108 mmol/L 98-108 3003101160) CO2 TOTAL (test code = 20 mmol/L 23-31 L 8936245395) AGAP (test code = 2-16 6267394011) BUN (test code = 12 mg/dL 7-23 4406112767) GLUCOSE (test code = 186 mg/dL 70-110 H 6046172934) CREATININE (test code = 0.49 mg/dL 0.60-1.25 L 0397035016) TOTAL BILI (test code = 0.7 mg/dL 0.1-1.0 6767811360) CALCIUM (test code = 8.7 mg/dL 8.6-10.6 7662938542) T PROTEIN (test code = 6.9 g/dL 6.3-8.2 7097510867) ALBUMIN (test code = 3.7 g/dL 3.5-5.0 5845997592) ALK PHOS (test code = 114 U/L 34-122 3227417135) ALTv (test code = 75 U/L 5-50 H 1742-6) AST(SGOT) (test code = 27 U/L 13-40 5713026265) eGFR (test code = mL/min/1.73m2 5307619169) ARPITA (test code = ARPITA) Association of [...] tests). Lab Interpretation Abnormal (test code = 60671-3) [facility] WITH [id number] 11:14:25 Test Item Value Reference Range Interpretation Comments WBC (test code = See_Comment [Automated 1671-2) message] The sy stem which generated this result transmitted reference range : 4.20 - 10.70 10*3/?L. The reference range was not used to interpret this result as normal/abnormal . RBC (test code = See_Comment [Automated 289-8) message] The sy stem which generated this [...] RDW-SD (test code = 48.7 fL 38.5-51.6 62018-2) RDW-CV (test code = 15.0 % 12.1-15.4 788-0) PLT (test code = See_Comment [Automated 777-3) message] The sy stem which generated this result transmitted reference range : 150 - 328 10*3/ ?L. The reference r boubacar was not used to interpret this result as normal/abnormal . MPV (test code = 10.4 fL 9.8-13.0 70018-8) NRBC/100 WBC (test See_Comment [Automat ed code = 1459993527) message] The system which generated this result transmitted reference range : 0.0 - 10.0 /100 WBCs. The refer ence range was not u sed to interpret th is result as normal/abnormal . NRBC x10^3 (test code <0.01 See_Comment [Auto mated = 1797197047) message] The s ystem which generated this result transmitted reference range : 10*3/?L. The reference range was not used to interpret this result as normal/abnormal . GRAN MAT (NEUT) % 65.5 % (test code = 770-8) IMM GRAN % (test code 0.80 % = 6104075872) LYMPH % (test code = 20.9 % 736-9) MONO % (test code = 9.7 % 5905-5) EOS % (test code = 2.7 % 713-8) BASO % (test code = 0.4 % 706-2) GRAN MAT x10^3(ANC) 5.41 10*3/uL 1.99-6.95 (test code = 2218652375) IMM GRAN x10^3 (test 0.07 10*3/uL 0.00-0.06 H code = 7184284285) LYMPH x10^3 (test code 1.73 10*3/uL 1.09-3.23 = 731-0) MONO x10^3 (test code 0.80 10*3/uL 0.36-1.02 = 742-7) EOS x10^3 (test code = 0.22 10*3/uL 0.06-0.53 711-2) BASO x10^3 (test code 0.03 10*3/uL 0.01-0.09 = 704-7) Lab Interpretation Abnormal (test code = 24734-9) [facility] [id number] 13:16:44 Test Item Value Reference Range Interpretation Comments NT-proBNP (test code 157 pg/mL See_Comment H [Autom ated = 7999513010) message] The system which generated this result transmitted reference range : <=125. The reference range was not used to interpret this result as normal/abnormal . ARPITA (test code = ARPITA) Biotin has been reported to cause a negative bias, interpret results relative to patient's use of biotin. Lab Interpretation Abnormal (test code = 58968-0) [facility] METABOLIC PANEL ([id number])2021-11-23 13:08:45 Test Item Value Reference Range Interpretation Comments NA (test code = 141 mmol/L 135-145 1945595490) K (test code = 4.2 mmol/L 3.5-5.0 2681267389) CL (test code = 110 mmol/L 98-108 H 9647775222) CO2 TOTAL (test code = 24 mmol/L 23-31 9296068004) AGAP (test code = 2-16 0806770445) BUN (test code = 11 mg/dL 7-23 0817919711) GLUCOSE (test code = 142 mg/dL 70-110 H 9103126612) CREATININE (test code = 0.61 mg/dL 0.60-1.25 3469742584) TOTAL BILI (test code = 0.7 mg/dL 0.1-1.0 0686054102) CALCIUM (test code = 8.5 mg/dL 8.6-10.6 L 4135633712) T PROTEIN (test code = 6.7 g/dL 6.3-8.2 6435311657) ALBUMIN (test code = 3.6 g/dL 3.5-5.0 5662200883) ALK PHOS (test code = 120 U/L 34-122 9396527072) ALTv (test code = 88 U/L 5-50 H 1742-6) AST(SGOT) (test code = 27 U/L 13-40 4647810145) eGFR (test code = mL/min/1.73m2 2393846141) ARPITA (test code = ARPITA) Association of [...] tests). Lab Interpretation Abnormal (test code = 97626-9) [facility]20[facility] 13:08:45 Test Item Value Reference Range Interpretation Comments MAGNESIUM (test code = 0646225390) 1.7 mg/dL 1.7-2.4 Lab Interpretation (test code = Normal 10910-1) [facility] WITH [id number] 11:57:56 Test Item Value Reference Range Interpretation Comments WBC (test code = See_Comment [Automated 2290-2) message] The sy stem which generated this [...] RDW-SD (test code = 48.9 fL 38.5-51.6 25300-7) RDW-CV (test code = 14.9 % 12.1-15.4 788-0) PLT (test code = See_Comment [Automated 777-3) message] The sy stem which generated this result transmitted reference range : 150 - 328 10*3/ ?L. The reference r boubacar was not used to interpret this result as normal/abnormal . MPV (test code = 9.4 fL 9.8-13.0 L 21725-0) NRBC/100 WBC (test See_Comment [Automat ed code = 2696764860) message] The system which generated this result transmitted reference range : 0.0 - 10.0 /100 WBCs. The refer ence range was not u sed to interpret th is result as normal/abnormal . NRBC x10^3 (test code <0.01 See_Comment [Auto mated = 3082691195) message] The s ystem which generated this result transmitted reference range : 10*3/?L. The reference range was not used to interpret this result as normal/abnormal . GRAN MAT (NEUT) % 63.9 % (test code = 770-8) IMM GRAN % (test code 0.70 % = 8769761324) LYMPH % (test code = 22.7 % 736-9) MONO % (test code = 9.6 % 5905-5) EOS % (test code = 2.7 % 713-8) BASO % (test code = 0.4 % 706-2) GRAN MAT x10^3(ANC) 4.75 10*3/uL 1.99-6.95 (test code = 9030042825) IMM GRAN x10^3 (test 0.05 10*3/uL 0.00-0.06 code = 6187102107) LYMPH x10^3 (test code 1.69 10*3/uL 1.09-3.23 = 731-0) MONO x10^3 (test code 0.71 10*3/uL 0.36-1.02 = 742-7) EOS x10^3 (test code = 0.20 10*3/uL 0.06-0.53 711-2) BASO x10^3 (test code 0.03 10*3/uL 0.01-0.09 = 704-7) Lab Interpretation Abnormal (test code = 21236-7) [facility], [id number] 19:18:39 Test Item Value Reference Range Interpretation Comments VIT B12 (test code = 249 pg/mL 240-930 2396835128) ARPITA (test code = ARPITA) Biotin has been reported to cause a positive bias, interpret results relative to patient's use of biotin. Lab Interpretation (test Normal code = 92021-9) [facility] B12, [id number] 19:18:39 Test Item Value Reference Range Interpretation Comments VIT B12 (test code = 249 pg/mL 240-930 2702682590) ARPITA (test code = ARPITA) Biotin has been reported to cause a positive bias, interpret results relative to patient's use of biotin. Lab Interpretation (test Normal code = 85024-0) [facility] D, [id number] 17:30:28 Test Item Value Reference Range Interpretation Comments VIT D 25OH (test code = 16 ng/mL 25-80 L 84132-0) ARPITA (test code = ARPITA) Deficiency: <20 ng/mLInsufficiency: 20-24 ng/mLOptimal: 25-80 ng/mL Lab Interpretation (test Abnormal code = 83470-1) [facility], [id number] 17:30:28 Test Item Value Reference Range Interpretation Comments VIT D 25OH (test code = 16 ng/mL 25-80 L 75849-3) ARPITA (test code = ARPITA) Deficiency: <20 ng/mLInsufficiency: 20-24 ng/mLOptimal: 25-80 ng/mL Lab Interpretation (test Abnormal code = 13362-4) [facility]PROCALCITONIN2022-05-11 16:07:32 Test Item Value Reference Interpretation Comments Range Procalcitonin (test 0.04 ng/mL See_Comment [Automa lester code = 1947720510) message] The system which generated this result transmitted reference range: <=0.07. The reference range was not used to interpret this result as normal/abnormal . ARPITA (test code = INTERPRETATION OF ARPITA) PROCALCITONIN RESULTS IN ADULTS >= 18 YEARS OF AGE Initiation and discontinuation of antibiotics on patients with suspected or confirmed Lower Respiratory Tract Infection in Adults >= 18 years of age. + +------ + ----+ +|Procalcit onin |Interpretation ?|Antibiotic ? ? |Considerations ? |ng/mL ? | ?|recommendation | ? + +------ + ----+ +| <0.1 ? | Bacterial ? ? ?| Strongly ? ? ?| ? | ?| infection very | discouraged ? | Overruling: ? | ?| unlikely ? ? ? | ? | ? Clinically unstable ? ? ? + +------ + ----+ ? High risk for adverse ? ? | <0.25 ?| Bacterial ? ? ?| Discouraged ? | ? outcome ? | ?| infection ? ? ?| ? | ? SEE IMPORTANT NOTE ?| ?| unlikely ? ? ? | ? | ? + +------ + ----+ +| >=0.25 ? ? ? | Bacterial ? ? ?| Encouraged ? ?| ? | ?| infection ? ? ?| ? | ? | ?| likely ? | ? | Consider treatment failure ?+ +----- + -----+ if levels does not decrease | >0.5 ? | Bacterial ? ? ?| Strongly ? ? ?| appropriately ? | ?| infection very | encouraged ? ?| ? | ?| likely ? | ? | ? + +------ + ----+ + Discontinuation of antibiotics in high-acuity patients with suspected or confirmed sepsis in Adults >= 18 years of age. + +------ + ----+ +|Procalcit onin |Interpretation ?|Antibiotic ? ? |Considerations ? |ng/mL ? | ?|recommendation | ? + +------ + ----+ +| <0.25 ?| Bacterial ? ? ?| Strongly ? ? ?| ? | ?| infection very | discouraged ? | Overruling: ? | ?| unlikely ? ? ? | ? | ? Clinically unstable ? ? ? + +------ + ----+ ? High risk for adverse ? ? | <0.5 or drop | Bacterial ? ? ?| Discouraged ? | ? outcome ? | >80% from ? ?| infection ? ? ?| ? | ? SEE IMPORTANT NOTE ?| highest PCT ?| unlikely ? ? ? | ? | ? | level ?| ?| ? | ? + +------ + ----+ +| >=0.5 ?| Bacterial ? ? ?| Encouraged ? ?| ? | ?| infection ? ? ?| ? | ? | ?| likely ? | ? | Consider treatment failure ?+ +----- + -----+ if levels does not decrease | >1.0 ? | Bacterial ? ? ?| Strongly ? ? ?| appropriately ? | ?| infection very | encouraged ? ?| ? | ?| likely ? | ? | ? + +------ + ----+ + Percentage of drop of Procalcitonin calculation for Discontinuation of antibiotics in high-acuity patients with suspected or confirmed sepsis in Adults >= 18 years of age. ? Procalcitonin highest{}-Procalcitoni n current{}Delta Procalcitonin = ___ x100% ? Procalcitonin current {} IMPORTANT NOTE: [...] lung abscess/empyema. For further information please refer to:[email or web address] Lab Interpretation Normal (test code = 69999-5) [facility] 16:07:32 Test Item Value Reference Range Interpretation Comments Procalcitonin (test 0.04 ng/mL <0.07 code = 7556251369) ARPITA (test code = ARPITA) INTERPRETATION OF [...] biotics/default.asp Lab Interpretation Normal (test code = 98043-9) [facility]SEDIMENTATION [id number] 13:21:10 Test Item Value Reference Range Interpretation Comments ESR (test code = See_Comment H [Automated message] 6363010334) The system whic h generated this result transmitted ref erence range: 0 - 10 m m/HR. The reference r boubacar was not used to interpret this result as normal/abnor mal. Lab Interpretation (test Abnormal code = 74540-2) [facility]GLYCOSYLATED HEMOGLOBIN (A1C)2021-11-22 13:12:27 Test Item Value Reference Range Interpretation Comments HGB A1C (test code = 6.3 % 4.0-5.7 H 4548-4) ARPITA (test code = ARPITA) Reference RangesNormal: <5.7%Prediabetes: 5.7 - 6.4%Diabetes: > 6.5% Lab Interpretation (test Abnormal code = 23710-2) [facility]N-TERMINAL [id number] 11:53:14 Test Item Value Reference Range Interpretation Comments NT-proBNP (test code 16 pg/mL See_Comment [Autom ated = 8019311827) message] The system which generated this result transmitted reference range : <=125. The reference range was not used to interpret this result as normal/abnormal . ARPITA (test code = ARPITA) Biotin has been reported to cause a negative bias, interpret results relative to patient's use of biotin. Lab Interpretation Normal (test code = 03913-8) [facility]COMP[facility] METABOLIC PANEL (95031)2021-11-22 11:44:55 Test Item Value Reference Range Interpretation Comments NA (test code = 142 mmol/L 135-145 3665137101) K (test code = 3.9 mmol/L 3.5-5.0 5450287218) CL (test code = 108 mmol/L 98-108 0661832167) CO2 TOTAL (test code = 24 mmol/L 23-31 8630311217) AGAP (test code = 2-16 5532145517) BUN (test code = 11 mg/dL 7-23 8449336690) GLUCOSE (test code = 205 mg/dL 70-110 H 4707638073) CREATININE (test code = 0.71 mg/dL 0.60-1.25 6719818361) TOTAL BILI (test code = 0.7 mg/dL 0.1-1.2 2827535831) CALCIUM (test code = 8.9 mg/dL 8.6-10.6 9237290821) T PROTEIN (test code = 7.3 g/dL 6.3-8.2 5538995085) ALBUMIN (test code = 3.8 g/dL 3.5-5.0 5552100644) ALK PHOS (test code = 135 U/L 34-122 H 8360630329) ALTv (test code = 120 U/L 5-50 H 2-6) AST(SGOT) (test code = 33 U/L 13-40 8902354600) eGFR (test code = mL/min/1.73m2 6446985603) ARPITA (test code = ARPITA) Association of [...] tests). Lab Interpretation Abnormal (test code = 37060-8) [facility] Test Item Value Reference Range Interpretation Comments MAGNESIUM (test code = 3949201272) 1.6 mg/dL 1.7-2.4 L Lab Interpretation (test code = Abnormal 95888-5) [facility]PHOS[facility]ORUS2022-[facility]-11 11:44:35 Test Item Value Reference Range Interpretation Comments PHOSPHORUS (test code = 4904114410) 4.1 mg/dL 2.5-5.0 Lab Interpretation (test code = Normal 52759-1) [facility]CREATINE [id number] 11:44:15 Test Item Value Reference Range Interpretation Comments CK (test code = 2900538298) 50 U/L 33-194 Lab Interpretation (test code = Normal 65504-0) [facility] [id number] 11:44:15 Test Item Value Reference Range Interpretation Comments CK (test code = 9436988982) 50 U/L 33-194 Lab Interpretation (test code = Normal 32173-5) [facility]CB WITH [id number] 11:28:14 Test Item Value Reference Range Interpretation Comments WBC (test code = See_Comment [Automated 2190-2) message] The sy stem which generated this result transmitted reference range : 4.20 - 10.70 10*3/?L. The reference range was not used to interpret this result as normal/abnormal . RBC (test code = See_Comment [Automated 229-8) message] The sy stem which generated this [...] RDW-SD (test code = 48.4 fL 38.5-51.6 85766-5) RDW-CV (test code = 15.1 % 12.1-15.4 788-0) PLT (test code = See_Comment [Automated 757-3) message] The sy stem which generated this result transmitted reference range : 150 - 328 10*3/ ?L. The reference r boubacar was not used to interpret this result as normal/abnormal . MPV (test code = 10.2 fL 9.8-13.0 45331-0) NRBC/100 WBC (test See_Comment [Automat ed code = 8331722458) message] The system which generated this result transmitted reference range : 0.0 - 10.0 /100 WBCs. The refer ence range was not u sed to interpret th is result as normal/abnormal . NRBC x10^3 (test code <0.01 See_Comment [Auto mated = 3183684921) message] The s ystem which generated this result transmitted reference range : 10*3/?L. The reference range was not used to interpret this result as normal/abnormal . GRAN MAT (NEUT) % 67.8 % (test code = 770-8) IMM GRAN % (test code 0.80 % = 4077914164) LYMPH % (test code = 19.8 % 736-9) MONO % (test code = 8.7 % 5905-5) EOS % (test code = 2.7 % 713-8) BASO % (test code = 0.2 % 706-2) GRAN MAT x10^3(ANC) 6.56 10*3/uL 1.99-6.95 (test code = 4098239202) IMM GRAN x10^3 (test 0.08 10*3/uL 0.00-0.06 H code = 9129856135) LYMPH x10^3 (test code 1.91 10*3/uL 1.09-3.23 = 731-0) MONO x10^3 (test code 0.84 10*3/uL 0.36-1.02 = 742-7) EOS x10^3 (test code = 0.26 10*3/uL 0.06-0.53 711-2) BASO x10^3 (test code <0.03 0.01-0.09 = 704-7) Lab Interpretation Abnormal (test code = 11723-3) [facility] [id number] 10:56:10 Test Item Value Reference Range Interpretation Comments IRON (test code = 4581241432) 46 ug/dL 50-160 L TIBC (test code = 7454854942) 299 ug/dL 250-410 % FE SAT (test code = 5991758455) 15 % 20-50 L Lab Interpretation (test code = Abnormal 33995-0) [facility]IRON [id number] 10:56:10 Test Item Value Reference Range Interpretation Comments IRON (test code = 7024704613) 46 ug/dL 50-160 L TIBC (test code = 0449926138) 299 ug/dL 250-410 % FE SAT (test code = 1680423009) 15 % 20-50 L Lab Interpretation (test code = Abnormal 32474-9) [facility] HospitalFERRITIN [id number] 10:13:03 Test Item Value Reference Range Interpretation Comments FERRITIN (test code = 89.2 ng/mL 18-464 0559182765) ARPITA (test code = ARPITA) Biotin has been reported to cause a negative bias, interpret results relative to patient's use of biotin. Lab Interpretation (test Normal code = 85763-3) [facility]FERR[facility]IN [id number] 10:13:03 Test Item Value Reference Range Interpretation Comments FERRITIN (test code = 89.2 ng/mL 18.0-464.0 3849021721) ARPITA (test code = ARPITA) Biotin has been reported to cause a negative bias, interpret results relative to patient's use of biotin. Lab Interpretation (test Normal code = 22714-4) [facility] HospitalTHYROID STIMULATING [id number] 10:09:06 Test Item Value Reference Range Interpretation Comments TSH (test code = See_Comment [Automated message] 4678905860) The system [employer] generated this result transmitted ref erence range: 0.45 - 4 .70 mIU/L. The refe rence range was not u sed to interpret this result as normal/abnor mal. Lab Interpretation (test Normal code = 05513-4) [facility] HospitalTHYROID STIMULATING [id number] 10:09:06 Test Item Value Reference Range Interpretation Comments TSH (test code = See_Comment [Automated message] 6904665086) The system [employer] generated this result transmitted ref erence range: 0.45 - 4 .70 mIU/L. The refe rence range was not u sed to interpret this result as normal/abnor mal. Lab Interpretation (test Normal code = 93438-8) [facility]N-[facility]AL [id number] 09:47:44 Test Item Value Reference Range Interpretation Comments NT-proBNP (test code 12 pg/mL See_Comment [Autom ated = 8887744039) message] The system which generated this result transmitted reference range : <=125. The reference range was not used to interpret this result as normal/abnormal . ARPITA (test code = ARPITA) Biotin has been reported to cause a negative bias, interpret results relative to patient's use of biotin. Lab Interpretation Normal (test code = 66108-3) [facility] HospitalLIPID PANEL (28115)(TOTAL CHOLESTEROL, TRIGLYCERIDES, HDL)2021-11-22 09:35:58 Test Item Value Reference Range Interpretation Comments CHOL (test code = 250 mg/dL 120-200 H 4293185126) HDL (test code = 34 mg/dL See_Comment L [Automated message] 0546654560) The system [employer] generated this result transmit lester reference range : >=40. The refer ence range was not u sed to interpret th is result as normal/abnormal . HDLC RATIO (test code = See_Comment H [Au tomated message] 7249035648) The system [employer] generated this result transmit lester reference range : <=5.0. The refe rence range was not u sed to interpret th is result as normal/abnormal . TRIG (test code = 394 mg/dL 30-170 H 6634177850) LDL CHOL (test code = 137 mg/dL See_Comment [Auto mated message] 28112-1) The system [employer] generated this result transmit lester reference range : <=160. The refe rence range was not u sed to interpret th is result as normal/abnormal . VLDL (test code = 79 mg/dL 5-60 H 6177408347) Lab Interpretation (test Abnormal code = 47350-4) [facility]20059)(TOTAL CHOLESTEROL, TRIGLYCERIDES, HDL)2021-11-22 09:35:58 Test Item Value Reference Range Interpretation Comments CHOL (test code = 250 mg/dL 120-200 H 9943565194) HDL (test code = 34 mg/dL >40 L 5263282356) HDLC RATIO (test code = See_Comment H [Au tomated message] 2078965681) The system [employer] generated this result transmit lester reference range : <=5.0. The refe rence range was not u sed to interpret th is result as normal/abnormal . TRIG (test code = 394 mg/dL 30-170 H 9003560133) LDL CHOL (test code = 137 mg/dL See_Comment [Auto mated message] 46364-5) The system [employer] generated this result transmit lester reference range : <=160. The refe rence range was not u sed to interpret th is result as normal/abnormal . VLDL (test code = 79 mg/dL 5-60 H 2924292977) Lab Interpretation (test Abnormal code = 07150-5) [facility]2022-[facility]-11 09:35:42 Test Item Value Reference Range Interpretation Comments MAGNESIUM (test code = 6407460921) 1.5 mg/dL 1.7-2.4 L Lab Interpretation (test code = Abnormal 24652-3) [facility]PHOS[facility]2022-05-11 09:35:42 Test Item Value Reference Range Interpretation Comments PHOSPHORUS (test code = 0730224718) 3.3 mg/dL 2.5-5.0 Lab Interpretation (test code = Normal 40434-8) [facility]COMP[facility] MET[facility]OLIC PANEL (76704)2021-11-22 01:29:09 Test Item Value Reference Range Interpretation Comments NA (test code = 142 mmol/L 135-145 9543877067) K (test code = 3.7 mmol/L 3.5-5.0 7379965285) CL (test code = 103 mmol/L 98-108 9096975179) CO2 TOTAL (test code = 27 mmol/L 23-31 0949500665) AGAP (test code = 2-16 7628167244) BUN (test code = 11 mg/dL 7-23 6239660925) GLUCOSE (test code = 166 mg/dL 70-110 H 1299638309) CREATININE (test code = 0.61 mg/dL 0.60-1.25 4501932082) TOTAL BILI (test code = 0.8 mg/dL 0.1-1.9 1491786136) CALCIUM (test code = 9.3 mg/dL 8.6-10.6 6829065939) T PROTEIN (test code = 7.4 g/dL 6.3-8.2 7351274442) ALBUMIN (test code = 4.0 g/dL 3.5-5.0 3539794464) ALK PHOS (test code = 164 U/L 34-122 H 3607551808) ALTv (test code = 149 U/L 5-50 H 1742-6) AST(SGOT) (test code = 29 U/L 13-40 5513106462) eGFR (test code = mL/min/1.73m2 4450418681) ARPITA (test code = ARPITA) Association of [...] tests). Lab Interpretation Abnormal (test code = 48615-1) [facility]ACTIVATED PARTIAL THRMPLAS [id number] 01:23:46 Test Item Value Reference Range Interpretation Comments APTT Patient (test See_Comment [Automat ed code = 3173-2) message] The system which generated this result transmitted reference range : 23 - 38 Seconds . The reference range was not used to interpr et this result as normal/abnormal . ARPITA (test code = ARPITA) The [facility] patient population mean normal value for aPTT is 30 seconds. Lab Interpretation Normal (test code = 42487-3) [facility] HospitalPROTHROMBIN TIME / [id number] 01:21:51 Test Item Value Reference Range Interpretation [...] tions. Lab Interpretation (test Normal code = 99546-0) [facility]CB WITH [id number] 01:15:28 Test Item Value Reference Range Interpretation Comments WBC (test code = See_Comment H [Automated 8990-2) message] The sy stem which generated this result transmitted reference range : 4.20 - 10.70 10*3/?L. The reference range was not used to interpret this result as normal/abnormal . RBC (test code = See_Comment H [Automated 249-8) message] The sy stem which [...] RDW-SD (test code = 48.4 fL 38.5-51.6 22630-4) RDW-CV (test code = 15.1 % 12.1-15.4 788-0) PLT (test code = See_Comment [Automated 777-3) message] The sy stem which generated this result transmitted reference range : 150 - 328 10*3/ ?L. The reference r boubacar was not used to interpret this result as normal/abnormal . MPV (test code = 10.1 fL 9.8-13.0 77452-8) NRBC/100 WBC (test See_Comment [Automat ed code = 8831466294) message] The system which generated this result transmitted reference range : 0.0 - 10.0 /100 WBCs. The refer ence range was not u sed to interpret th is result as normal/abnormal . NRBC x10^3 (test code <0.01 See_Comment [Auto mated = 6175154931) message] The s ystem which generated this result transmitted reference range : 10*3/?L. The reference range was not used to interpret this result as normal/abnormal . GRAN MAT (NEUT) % 72.7 % (test code = 770-8) IMM GRAN % (test code 0.60 % = 2955627914) LYMPH % (test code = 15.5 % 736-9) MONO % (test code = 8.2 % 5905-5) EOS % (test code = 2.6 % 713-8) BASO % (test code = 0.4 % 706-2) GRAN MAT x10^3(ANC) 7.83 10*3/uL 1.99-6.95 H (test code = 3343920516) IMM GRAN x10^3 (test 0.07 10*3/uL 0.00-0.06 H code = 5489510308) LYMPH x10^3 (test code 1.67 10*3/uL 1.09-3.23 = 731-0) MONO x10^3 (test code 0.88 10*3/uL 0.36-1.02 = 742-7) EOS x10^3 (test code = 0.28 10*3/uL 0.06-0.53 711-2) BASO x10^3 (test code 0.04 10*3/uL 0.01-0.09 = 704-7) Lab Interpretation Abnormal (test code = 86403-3) [facility] HospitalLactic Acid Whole Vaarv7519-79-03 01:14:32 Test Item Value Reference Range Interpretation Comments LACTIC ACID (test code = 1.86 mmol/L 0.50-2.20 7448961928) Lab Interpretation (test code = Normal 94160-8) [facility]2022-04-12 12:58:00 Test Item Value Reference Range Interpretation Comments Glucose Lvl (test code = Glucose Lvl) 228 70-99 [facility]2022-04-12 12:58:00 Test Item Value Reference Range Interpretation Comments BUN (test code = BUN) 23 7-22 [facility]2022-04-12 12:58:00 Test Item Value Reference Range Interpretation Comments Creatinine Lvl (test code = Creatinine 0.78 0.50-1.40 Lvl) [facility]2022-04-12 12:58:00 Test Item Value Reference Range Interpretation Comments Sodium Lvl (test code = Sodium Lvl) 138 135-145 [facility]2022-04-12 12:58:00 Test Item Value Reference Range Interpretation Comments Potassium Lvl (test code = Potassium 4.6 3.5-5.1 Lvl) [facility]2022-04-12 12:58:00 Test Item Value Reference Range Interpretation Comments Chloride Lvl (test code = Chloride Lvl) 108 95-109 [facility]2022-04-12 12:58:00 Test Item Value Reference Range Interpretation Comments CO2 (test code = CO2) 23 24-32 [facility]2022-04-12 12:58:00 Test Item Value Reference Range Interpretation Comments Calcium Lvl (test code = Calcium Lvl) 9.0 8.5-10.5 [facility]2022-04-12 12:58:00 Test Item Value Reference Range Interpretation Comments AGAP (test code = AGAP) 11.6 10.0-20.0 [facility]2022-04-12 12:58:00 Test Item Value Reference Range Interpretation Comments eGFR (test code = eGFR) 116 [facility]WwmqsiyHJGDBVFEEA4867-89-63 12:58:00 Test Item Value Reference Range Interpretation Comments WBC (test code = WBC) 10.5 3.7-10.4 [facility] HospitalYbtrinmZIFGHXYXHD1502-39-34 12:58:00 Test Item Value Reference Range Interpretation Comments RBC (test code = RBC) 5.48 4.70-6.10 [facility] HospitalGfhecgsSXFXYPEHHU9352-25-38 12:58:00 Test Item Value Reference Range Interpretation Comments Hgb (test code = Hgb) 16.0 14.0-18.0 [facility] HospitalJzjyjotXWXVBIJZBB1410-75-27 12:58:00 Test Item Value Reference Range Interpretation Comments Hct (test code = Hct) 49.8 42.0-54.0 [facility] HospitalNutjwpeKNJTPHHRLF7168-90-07 12:58:00 Test Item Value Reference Range Interpretation Comments MCV (test code = MCV) 90.8 80.0-94.0 [facility] HospitalJwassosMBQRNHJWUJ9122-31-97 12:58:00 Test Item Value Reference Range Interpretation Comments MCH (test code = MCH) 29.1 pg 27.0-31.0 [facility] HospitalCoimkrvOHVPFLZTEF5269-60-86 12:58:00 Test Item Value Reference Range Interpretation Comments MCHC (test code = MCHC) 32.1 32.0-36.0 [facility] HospitalClrarcuUYFIESHELX5433-32-47 12:58:00 Test Item Value Reference Range Interpretation Comments RDW (test code = RDW) 15.5 11.5-14.5 [facility] HospitalWlptnaxVNTRBAVRLN2064-97-11 12:58:00 Test Item Value Reference Range Interpretation Comments Platelet (test code = Platelet) 312 133-450 [facility] HospitalCglmjhzSKMXCSVWPO3554-03-42 12:58:00 Test Item Value Reference Range Interpretation Comments MPV (test code = MPV) 8.3 7.4-10.4 [facility] HospitalDtxewzhXDWEXCVQSB1628-05-24 12:58:00 Test Item Value Reference Range Interpretation Comments PT (test code = PT) 12.9 s 12.0-14.7 [facility] HospitalGfwtenbOQOVWOAHNQ4825-27-96 12:58:00 Test Item Value Reference Range Interpretation Comments INR (test code = INR) 0.98 1 0.85-1.17 [facility] HospitalQeieeyjNKLCPTRCCK9453-85-14 12:58:00 Test Item Value Reference Range Interpretation Comments PTT (test code = PTT) 27.3 s 22.9-35.8 [place]112-04-12 12:58:00 Test Item Value Reference Range Interpretation Comments Segs (test code = Segs) 71.2 45.0-75.0 [place] 707112-04-12 12:58:00 Test Item Value Reference Range Interpretation Comments Lymphocytes (test code = Lymphocytes) 21.1 20.0-40.0 [place] [address]-04-12 12:58:00 Test Item Value Reference Range Interpretation Comments Monocytes (test code = Monocytes) 6.8 2.0-12.0 [place] [address]-04-12 12:58:00 Test Item Value Reference Range Interpretation Comments Eosinophils (test code = 0.1 See_Comment [A utomated message] The Eosinophils) system which ge nerated this result tra nsmitted reference range : <=4.0. The reference r boubacar was not used to int erpret this result as normal/abnormal . [place] 707112-04-12 12:58:00 Test Item Value Reference Range Interpretation Comments Basophils (test code = 0.8 See_Comment [Aut omated message] The Basophils) system which ge nerated this result tra nsmitted reference range : <=1.0. The reference r boubacar was not used to int erpret this result as normal/abnormal . [place] 707112-04-12 12:58:00 Test Item Value Reference Range Interpretation Comments Neutrophils # (test code = Neutrophils 7.5 1.5-8.1 #) [place] 707112-04-12 12:58:00 Test Item Value Reference Range Interpretation Comments Lymphocytes # (test code = Lymphocytes 2.2 1.0-5.5 #) [place] [address]-04-12 12:58:00 Test Item Value Reference Range Interpretation Comments Monocytes # (test code 0.7 See_Comment [Aut omated message] The = Monocytes #) system which generated this result tra nsmitted reference range : <=0.8. The reference r boubacar was not used to int erpret this result as normal/abnormal . [place] [address]-04-12 12:58:00 Test Item Value Reference Range Interpretation Comments Basophils # (test code 0.1 See_Comment [Aut omated message] The = Basophils #) system which generated this result tra nsmitted reference range : <=0.2. The reference r boubacar was not used to int erpret this result as normal/abnormal . [facility] [id number] 11:59:00 Test Item Value Reference Range Interpretation Comments Tube Num CSF (test code = Tube Num CSF) 3 1 [facility]2022-04-12 11:59:00 Test Item Value Reference Range Interpretation Comments Color CSF (test code Colorless (10/24/21 6:59 = Color CSF) AM) [facility]2022-04-12 11:59:00 Test Item Value Reference Range Interpretation Comments Clarity CSF (test code = Clear (10/24/21 6:59 Clarity CSF) AM) [facility]2022-04-12 11:59:00 Test Item Value Reference Range Interpretation Comments Supernat CSF (test Colorless (10/24/21 6:59 code = Supernat CSF) AM) [facility]2022-04-12 11:59:00 Test Item Value Reference Range Interpretation Comments Nucleated Cells CSF 3 See_Comment [Automa lester message] The (test code = Nucleated syste m which generated Cells CSF) this result tra nsmitted reference range : <=53. The reference r boubacar was not used to int erpret this result as normal/abnormal . [facility] [id number] 11:59:00 Test Item Value Reference Range Interpretation Comments RBC CSF (test code = 64 See_Comment [Autom ated message] The RBC CSF) system which ge nerated this result transmit lester reference range : <=03. The reference range was not used to interpr et this result as dany l/abnormal. [facility] KAQJEE4326-95-54 11:59:00 Test Item Value Reference Range Interpretation Comments Comment CSF (test Differential not performed code = Comment CSF) on WBC count of less than 5. Cell counts performed on CSF greater than two hours after collection may not be lead customer service representative due to cellular degradation. [facility] PNNKXS7413-80-71 11:59:00 Test Item Value Reference Range Interpretation Comments Glucose CSF (test code = Glucose CSF) 129 45-80 [facility] PIAJMT1037-47-18 11:59:00 Test Item Value Reference Range Interpretation Comments Protein CSF (test code = Protein CSF) 110 15-45 [facility] Urahtv6752-26-86 11:59:00 Test Item Value Reference Range Interpretation Comments Gram Stain Report Gram Stain Performed By: (test code = Gram [facility] Stain Report) [facility] CSF w/Gram Daytz4341-54-58 11:59:00 Test Item Value Reference Range Interpretation Comments Culture: CSF w/Gram 48 Hour Report - No Stain (test code = Growth, Holding Culture: CSF w/Gram Stain) [facility] [id number] 14:46:00 Test Item Value Reference Range Interpretation Comments Hgb A1C (test code = Hgb A1C) 5.6 [facility] [id number] 11:43:00 Test Item Value Reference Range Interpretation Comments Glucose Lvl (test code = Glucose Lvl) 418 70-99 [facility] [id number] 11:43:00 Test Item Value Reference Range Interpretation Comments BUN (test code = BUN) 22 7-22 [facility]2022-04-11 11:43:00 Test Item Value Reference Range Interpretation Comments Creatinine Lvl (test code = Creatinine 1.10 0.50-1.40 Lvl) [facility] [id number] 11:43:00 Test Item Value Reference Range Interpretation Comments Sodium Lvl (test code = Sodium Lvl) 138 135-145 [facility]2022-04-11 11:43:00 Test Item Value Reference Range Interpretation Comments Potassium Lvl (test code = Potassium 4.9 3.5-5.1 Lvl) [facility] [id number] 11:43:00 Test Item Value Reference Range Interpretation Comments Chloride Lvl (test code = Chloride Lvl) 113 95-109 [facility] [id number] 11:43:00 Test Item Value Reference Range Interpretation Comments CO2 (test code = CO2) 16 24-32 [facility]2022-04-11 11:43:00 Test Item Value Reference Range Interpretation Comments AGAP (test code = AGAP) 13.9 10.0-20.0 [facility] [id number] 11:43:00 Test Item Value Reference Range Interpretation Comments Calcium Lvl (test code = Calcium Lvl) 9.0 8.5-10.5 [facility]2022-04-11 11:43:00 Test Item Value Reference Range Interpretation Comments eGFR (test code = eGFR) 86 [facility]FstjadtCGCOZFHZKP7839-35-10 11:43:00 Test Item Value Reference Range Interpretation Comments WBC (test code = WBC) 10.2 3.7-10.4 [facility] HospitalRoncghiTZKEGVKSDM1739-10-48 11:43:00 Test Item Value Reference Range Interpretation Comments RBC (test code = RBC) 5.46 4.70-6.10 [facility] HospitalPjuuswbKJUURCUNKD8279-23-62 11:43:00 Test Item Value Reference Range Interpretation Comments Hgb (test code = Hgb) 16.3 14.0-18.0 [facility] HospitalJyjvrloFJODVMVGWH7856-14-33 11:43:00 Test Item Value Reference Range Interpretation Comments Hct (test code = Hct) 50.0 42.0-54.0 [facility] HospitalOcvmlhaOKBJARWKQH9573-94-83 11:43:00 Test Item Value Reference Range Interpretation Comments MCV (test code = MCV) 91.4 80.0-94.0 [facility] HospitalTyowjgiPXCXTQNQUK7504-36-85 11:43:00 Test Item Value Reference Range Interpretation Comments MCH (test code = MCH) 29.9 pg 27.0-31.0 [facility] HospitalVfuliyuDXGEOIQSOR4606-91-13 11:43:00 Test Item Value Reference Range Interpretation Comments MCHC (test code = MCHC) 32.7 32.0-36.0 [facility] HospitalFonuamdFXBSRFCFXB7580-74-48 11:43:00 Test Item Value Reference Range Interpretation Comments RDW (test code = RDW) 15.7 11.5-14.5 [facility] HospitalGwulfyjLJGJEPNAGV8393-34-15 11:43:00 Test Item Value Reference Range Interpretation Comments Platelet (test code = Platelet) 321 133-450 [facility] HospitalUwrsgiiZXLHFOULNW7091-82-30 11:43:00 Test Item Value Reference Range Interpretation Comments MPV (test code = MPV) 8.6 7.4-10.4 [facility] HospitalPstxnuqAFPJWNBYHU2158-83-41 11:43:00 Test Item Value Reference Range Interpretation Comments Segs (test code = Segs) 92.0 45.0-75.0 [facility] HospitalRvccefnNGOBMGUUFF7125-87-26 11:43:00 Test Item Value Reference Range Interpretation Comments Lymphocytes (test code = Lymphocytes) 5.2 20.0-40.0 [facility] HospitalSrjeypbTURZIJUOAM2500-67-41 11:43:00 Test Item Value Reference Range Interpretation Comments Monocytes (test code = Monocytes) 1.6 2.0-12.0 [facility] HospitalTgyrvyqQBVXTBMQZG8072-56-83 11:43:00 Test Item Value Reference Range Interpretation Comments Basophils (test code = 1.2 See_Comment [Aut omated message] The Basophils) system which ge nerated this result tra nsmitted reference range : <=1.0. The reference r boubacar was not used to int erpret this result as normal/abnormal . [facility] HospitalWcoqcmtPPBUSNVIKY4850-21-88 11:43:00 Test Item Value Reference Range Interpretation Comments Neutrophils # (test code = Neutrophils 9.4 1.5-8.1 #) [facility] HospitalSjchulbBBXRRUVBDD3015-94-61 11:43:00 Test Item Value Reference Range Interpretation Comments Lymphocytes # (test code = Lymphocytes 0.5 1.0-5.5 #) [facility] HospitalRzrwsdeQVWYPZLPPO5710-74-08 11:43:00 Test Item Value Reference Range Interpretation Comments Monocytes # (test code 0.2 See_Comment [Aut omated message] The = Monocytes #) system which generated this result tra nsmitted reference range : <=0.8. The reference r boubacar was not used to int erpret this result as normal/abnormal . [facility] HospitalWzqiojnZXZMRIBCAR9691-54-91 11:43:00 Test Item Value Reference Range Interpretation Comments Basophils # (test code 0.1 See_Comment [Aut omated message] The = Basophils #) system which generated this result tra nsmitted reference range : <=0.2. The reference r boubacar was not used to int erpret this result as normal/abnormal . [facility] CenterJmttndxGOVSIORSSX0749-55-59 09:18:00 Test Item Value Reference Range Interpretation Comments Coronavirus (COVID-19) Not Detected (10/21/21 OUMOU (test code = 4:18 AM) Coronavirus (COVID-19) OUMOU) [facility]:SUSC:PT:ISOLATE:ORDQN:[id number] 08:19:00 Test Item Value Reference Range Interpretation Comments Culture: Urine (test >100,000 CFU/mL code = Culture: Providencia stuartii Urine) [facility] CenterCEFTRIAXONE:SUSC:PT:ISOLATE:ORDQN:[id number] 08:19:00 Test Item Value Reference Range Interpretation Comments Providencia stuartii Providencia stuartii (test code = Providencia stuartii) [facility] AND [id number] 08:19:00 Test Item Value Reference Range Interpretation Comments UA Color (test code = Yellow *NA*(10/21/21 3:19 UA Color) AM) [facility] AND [id number] 08:19:00 Test Item Value Reference Range Interpretation Comments UA Turbidity (test code Marked *ABN*(10/21/21 = UA Turbidity) 3:19 AM) [facility] AND [id number] 08:19:00 Test Item Value Reference Range Interpretation Comments UA Spec Grav (test code = UA Spec 1.013 1 Grav) [facility] AND [id number] 08:19:00 Test Item Value Reference Range Interpretation Comments UA pH (test code = UA pH) 5.0 1 5.0-8.0 [facility] AND [id number] 08:19:00 Test Item Value Reference Range Interpretation Comments UA Protein (test code = UA Negative mg/dL Protein) [facility] AND [id number] 08:19:00 Test Item Value Reference Range Interpretation Comments UA Glucose (test code = UA Negative mg/dL Glucose) [facility] AND [id number] 08:19:00 Test Item Value Reference Range Interpretation Comments UA Ketones (test code = UA Negative mg/dL Ketones) [facility] AND [id number] 08:19:00 Test Item Value Reference Range Interpretation Comments UA Bili (test code = Negative *NA*(10/21/21 UA Bili) 3:19 AM) [facility] AND [id number] 08:19:00 Test Item Value Reference Range Interpretation Comments UA Blood (test code = Small *ABN*(10/21/21 UA Blood) 3:19 AM) [facility] AND [id number] 08:19:00 Test Item Value Reference Range Interpretation Comments UA Urobilinogen (test code = UA no gt 0.1-1.0 Urobilinogen) [facility] AND [id number] 08:19:00 Test Item Value Reference Range Interpretation Comments UA Nitrite (test code Positive *ABN*(10/21/21 = UA Nitrite) 3:19 AM) [facility] AND [id number] 08:19:00 Test Item Value Reference Range Interpretation Comments UA Leuk Est (test code Large *ABN*(10/21/21 3:19 = UA Leuk Est) AM) [facility] AND [id number] 08:19:00 Test Item Value Reference Range Interpretation Comments UA WBC (test code = no gt See_Comment [Automa lester message] The UA WBC) system which ge nerated this result transmit lester reference range : <=5. The reference range was not used to interpr et this result as dany l/abnormal. [facility] AND [id number] 08:19:00 Test Item Value Reference Range Interpretation Comments UA RBC (test code = 8 See_Comment [Automa lester message] The UA RBC) system which ge nerated this result transmit lester reference range : <=2. The reference range was not used to interpr et this result as dany l/abnormal. [facility] AND [id number] 08:19:00 Test Item Value Reference Range Interpretation Comments UA Bacteria (test code = UA Occasional /HPF Bacteria) [facility] AND [id number] 08:19:00 Test Item Value Reference Range Interpretation Comments UA Mucus (test code = UA Mucus) Few /LPF [facility] AND [id number] 08:19:00 Test Item Value Reference Range Interpretation Comments UA Amorph Christi (test code = Occasional /HPF UA Amorph Christi) [facility] AND [id number] 08:19:00 Test Item Value Reference Range Interpretation Comments UA Sq Epi (test code = UA Sq Epi) None Seen [facility] CenterCulture: [id number] 08:19:00 Test Item Value Reference Range Interpretation Comments Culture: Urine (test Holding For Better code = Culture: Urine) Growth [facility] [id number] 00:20:00 Test Item Value Reference Range Interpretation Comments ABO/Rh (test code = ABO/Rh) AB POS [facility] [id number] 00:20:00 Test Item Value Reference Range Interpretation Comments Antibody Scrn (test Negative (10/20/21 7:20 code = Antibody Scrn) PM) [facility]2022-04-09 00:20:00 Test Item Value Reference Range Interpretation Comments Glucose Lvl (test code = Glucose Lvl) 74 70-99 [facility]2022-04-09 00:20:00 Test Item Value Reference Range Interpretation Comments BUN (test code = BUN) 15 7-22 [facility]2022-04-09 00:20:00 Test Item Value Reference Range Interpretation Comments Creatinine Lvl (test code = Creatinine 0.61 0.50-1.40 Lvl) [facility]2022-04-09 00:20:00 Test Item Value Reference Range Interpretation Comments Sodium Lvl (test code = Sodium Lvl) 139 135-145 [facility]2022-04-09 00:20:00 Test Item Value Reference Range Interpretation Comments Potassium Lvl (test code = Potassium 4.9 3.5-5.1 Lvl) [facility]2022-04-09 00:20:00 Test Item Value Reference Range Interpretation Comments Chloride Lvl (test code = Chloride Lvl) 105 95-109 [facility] [id number] 00:20:00 Test Item Value Reference Range Interpretation Comments CO2 (test code = CO2) 30 24-32 [facility]2022-04-09 00:20:00 Test Item Value Reference Range Interpretation Comments Calcium Lvl (test code = Calcium Lvl) 9.5 8.5-10.5 [facility]2022-04-09 00:20:00 Test Item Value Reference Range Interpretation Comments AGAP (test code = AGAP) 8.9 10.0-20.0 [facility] HospitalHouzeMe [id number] 00:20:00 Test Item Value Reference Range Interpretation Comments eGFR (test code = eGFR) 129 [facility]2022-04-09 00:20:00 Test Item Value Reference Range Interpretation Comments Lactic Acid Lvl (test code = Lactic 1.2 0.5-2.2 Acid Lvl) [facility]2022-04-09 00:20:00 Test Item Value Reference Range Interpretation Comments Procalcitonin Lvl (test 0.09 See_Comment [Au tomated message] code = Procalcitonin Lvl) Th e system which generated this result transmitted ref erence range: <=0.10. The reference range was not used to interpr et this result as normal/abnormal . [facility] HospitalJrsemzuUEDUXLHCTZ1246-59-13 00:20:00 Test Item Value Reference Range Interpretation Comments WBC (test code = WBC) 10.1 3.7-10.4 [facility] HospitalGcbnhdiYRHNGDNCXT4695-76-13 00:20:00 Test Item Value Reference Range Interpretation Comments RBC (test code = RBC) 5.14 4.70-6.10 [facility] HospitalMnypfcvEBEFLUFWZP0378-73-08 00:20:00 Test Item Value Reference Range Interpretation Comments Hgb (test code = Hgb) 15.5 14.0-18.0 [facility] HospitalMujdplfNLIJFBMFDK1268-58-74 00:20:00 Test Item Value Reference Range Interpretation Comments Hct (test code = Hct) 46.5 42.0-54.0 [facility] HospitalXntfquiIYUPDPYNDC1587-13-78 00:20:00 Test Item Value Reference Range Interpretation Comments MCV (test code = MCV) 90.5 80.0-94.0 [facility] HospitalVwlosfhVBAEISQRGM3089-72-22 00:20:00 Test Item Value Reference Range Interpretation Comments MCH (test code = MCH) 30.1 pg 27.0-31.0 [facility] HospitalNbodmglCWAAZDCUKR1716-27-14 00:20:00 Test Item Value Reference Range Interpretation Comments MCHC (test code = MCHC) 33.3 32.0-36.0 [facility] HospitalThyjqhdUENOXUCUJP8681-33-47 00:20:00 Test Item Value Reference Range Interpretation Comments RDW (test code = RDW) 15.7 11.5-14.5 [facility] HospitalZjqewvoCQCQJDXDTE1537-17-57 00:20:00 Test Item Value Reference Range Interpretation Comments Platelet (test code = Platelet) 302 133-450 [facility] HospitalPoojisiRLXNWNISTP1032-46-35 00:20:00 Test Item Value Reference Range Interpretation Comments MPV (test code = MPV) 8.9 7.4-10.4 [facility] HospitalYdpetzwHSIJOOILOQ0403-37-45 00:20:00 Test Item Value Reference Range Interpretation Comments Sed Rate (test code = 17 See_Comment [Auto mated message] The Sed Rate) system which ge nerated this result transmit lester reference range : <=15. The reference range was not used to interpr et this result as dany l/abnormal. [facility] HospitalEpvhaaiOLFUULXAPK6661-27-16 00:20:00 Test Item Value Reference Range Interpretation Comments PT (test code = PT) 13.1 s 12.0-14.7 [facility] HospitalNsufwtjBFXFKKCRXA1756-39-85 00:20:00 Test Item Value Reference Range Interpretation Comments INR (test code = INR) 1.00 1 0.85-1.17 [place] 707112-04-09 00:20:00 Test Item Value Reference Range Interpretation Comments PTT (test code = PTT) 31.5 s 22.9-35.8 [place] 707112-04-09 00:20:00 Test Item Value Reference Range Interpretation Comments Segs (test code = Segs) 68.7 45.0-75.0 [facility] HospitalNeatvicAPGDRCHCML1714-86-81 00:20:00 Test Item Value Reference Range Interpretation Comments Lymphocytes (test code = Lymphocytes) 19.6 20.0-40.0 [facility] HospitalMyblbsjGRSLULNCIS4628-29-75 00:20:00 Test Item Value Reference Range Interpretation Comments Monocytes (test code = Monocytes) 9.4 2.0-12.0 [facility] HospitalUsqbwpdUPUFHNHGYQ8405-97-11 00:20:00 Test Item Value Reference Range Interpretation Comments Eosinophils (test code = 1.4 See_Comment [A utomated message] The Eosinophils) system which ge nerated this result tra nsmitted reference range : <=4.0. The reference r boubacar was not used to int erpret this result as normal/abnormal . [facility] HospitalHuhbzslHWAXBWYKGP2219-19-69 00:20:00 Test Item Value Reference Range Interpretation Comments Basophils (test code = 0.9 See_Comment [Aut omated message] The Basophils) system which ge nerated this result tra nsmitted reference range : <=1.0. The reference r boubacar was not used to int erpret this result as normal/abnormal . [facility] HospitalVogueyiMOVBSGARMU8560-89-26 00:20:00 Test Item Value Reference Range Interpretation Comments Neutrophils # (test code = Neutrophils 6.9 1.5-8.1 #) [place] 707112-04-09 00:20:00 Test Item Value Reference Range Interpretation Comments Lymphocytes # (test code = Lymphocytes 2.0 1.0-5.5 #) [facility] HospitalWpcjtsbWVZDYASILG9263-15-72 00:20:00 Test Item Value Reference Range Interpretation Comments Monocytes # (test code 1.0 See_Comment [Aut omated message] The = Monocytes #) system which generated this result tra nsmitted reference range : <=0.8. The reference r boubacar was not used to int erpret this result as normal/abnormal . [facility] HospitalJhvjvjwYBOKDWALGO9321-98-37 00:20:00 Test Item Value Reference Range Interpretation Comments Eosinophils # (test code 0.1 See_Comment [A utomated message] The = Eosinophils #) system ic h generated this result tra nsmitted reference range : <=0.5. The reference r boubacar was not used to int erpret this result as normal/abnormal . [facility] HospitalSqnxhhoNZLKZCPEBI6458-78-69 00:20:00 Test Item Value Reference Range Interpretation Comments Basophils # (test code 0.1 See_Comment [Aut omated message] The = Basophils #) system which generated this result tra nsmitted reference range : <=0.2. The reference r boubacar was not used to int erpret this result as normal/abnormal . [facility] C[id number] 00:20:00 Test Item Value Reference Range Interpretation Comments C-REACTIVE PROTEIN (test code = 13.2 C-REACTIVE PROTEIN) [facility] WITH [id number] 04:47:32 Test Item Value Reference Range Interpretation [...] RDW-SD (test code = 45.7 fL 38.5-51.6 80157-7) RDW-CV (test code = 14.6 % 12.1-15.4 788-0) PLT (test code = See_Comment [Automated 777-3) message] The sy stem which generated this result transmitted reference range : 150 - 328 10*3/ ?L. The reference r boubacar was not used to interpret this result as normal/abnormal . MPV (test code = 11.0 fL 9.8-13.0 80175-3) NRBC/100 WBC (test See_Comment [Automat ed code = 8811764456) message] The system which generated this result transmitted reference range : 0.0 - 10.0 /100 WBCs. The refer ence range was not u sed to interpret th is result as normal/abnormal . NRBC x10^3 (test code <0.01 See_Comment [Auto mated = 3038530395) message] The s ystem which generated this result transmitted reference range : 10*3/?L. The reference range was not used to interpret this result as normal/abnormal . GRAN MAT (NEUT) % 72.2 % (test code = 770-8) IMM GRAN % (test code 0.60 % = 6072077429) LYMPH % (test code = 17.7 % 736-9) MONO % (test code = 7.4 % 5905-5) EOS % (test code = 1.8 % 713-8) BASO % (test code = 0.3 % 706-2) GRAN MAT x10^3(ANC) 9.09 10*3/uL 1.99-6.95 H (test code = 8350523928) IMM GRAN x10^3 (test 0.07 10*3/uL 0.00-0.06 H code = 9050290375) LYMPH x10^3 (test code 2.22 10*3/uL 1.09-3.23 = 731-0) MONO x10^3 (test code 0.93 10*3/uL 0.36-1.02 = 742-7) EOS x10^3 (test code = 0.22 10*3/uL 0.06-0.53 711-2) BASO x10^3 (test code 0.04 10*3/uL 0.01-0.09 = 704-7) Lab Interpretation Abnormal (test code = 99216-6) [facility]. METABOLIC PANEL (18368)2021-10-16 04:36:41 Test Item Value Reference Range Interpretation Comments NA (test code = 138 mmol/L 135-145 4393007398) K (test code = 4.6 mmol/L 3.5-5.0 7384714021) CL (test code = 105 mmol/L 98-108 1031567091) CO2 TOTAL (test code = 21 mmol/L 23-31 L 0941295380) AGAP (test code = 2-16 9630594889) BUN (test code = 13 mg/dL 7-23 7044854825) GLUCOSE (test code = 167 mg/dL 70-110 H 9934015861) CREATININE (test code = 0.48 mg/dL 0.60-1.25 L 7650826813) TOTAL BILI (test code = 0.8 mg/dL 0.1-1.0 9114189668) CALCIUM (test code = 9.3 mg/dL 8.6-10.6 9080091945) T PROTEIN (test code = 7.6 g/dL 6.3-8.2 3628177479) ALBUMIN (test code = 4.2 g/dL 3.5-5.0 2214317511) ALK PHOS (test code = 98 U/L 34-122 2410834163) ALTv (test code = 71 U/L 5-50 H 1742-6) AST(SGOT) (test code = 36 U/L 13-40 5973044720) eGFR (test code = mL/min/1.73m2 5732157388) ARPITA (test code = ARPITA) Association of [...] tests). Lab Interpretation Abnormal (test code = 31511-0) [facility] 04:[facility] Test Item Value Reference Range Interpretation Comments MAGNESIUM (test code = 1627719323) 1.6 mg/dL 1.7-2.4 L Lab Interpretation (test code = Abnormal 28868-3) [facility] QKDBMZJ5934-06-53 07:52:00 Test Item Value Reference Range Interpretation Comments ABO/Rh (test code = ABO/Rh) AB POS [facility] [employer] [id number] 07:52:00 Test Item Value Reference Range Interpretation Comments Antibody Scrn (test Negative (10/09/21 2:52 code = Antibody Scrn) AM) [employer] [id number] 07:52:00 Test Item Value Reference Range Interpretation Comments Glucose Lvl (test code = Glucose Lvl) 291 70-99 [facility]2022-03-28 07:52:00 Test Item Value Reference Range Interpretation Comments BUN (test code = BUN) 16 7-22 [place] 976982-03-28 07:52:00 Test Item Value Reference Range Interpretation Comments Creatinine Lvl (test code = Creatinine 0.83 0.50-1.40 Lvl) [place] 976982-03-28 07:52:00 Test Item Value Reference Range Interpretation Comments Sodium Lvl (test code = Sodium Lvl) 138 135-145 [place] 976982-03-28 07:52:00 Test Item Value Reference Range Interpretation Comments Potassium Lvl (test code = Potassium 4.7 3.5-5.1 Lvl) [place] 976982-03-28 07:52:00 Test Item Value Reference Range Interpretation Comments Chloride Lvl (test code = Chloride Lvl) 113 95-109 [place] 976982-03-28 07:52:00 Test Item Value Reference Range Interpretation Comments CO2 (test code = CO2) 18 24-32 [place] 976982-03-28 07:52:00 Test Item Value Reference Range Interpretation Comments AGAP (test code = AGAP) 11.7 10.0-20.0 [place] 976982-03-28 07:52:00 Test Item Value Reference Range Interpretation Comments Calcium Lvl (test code = Calcium Lvl) 9.4 8.5-10.5 [place] 976982-03-28 07:52:00 Test Item Value Reference Range Interpretation Comments eGFR (test code = eGFR) 113 [place] 707112-03-28 07:52:00 Test Item Value Reference Range Interpretation Comments WBC (test code = WBC) 5.5 3.7-10.4 [place] [address]-03-28 07:52:00 Test Item Value Reference Range Interpretation Comments RBC (test code = RBC) 5.53 4.70-6.10 [place] [address]-03-28 07:52:00 Test Item Value Reference Range Interpretation Comments Hgb (test code = Hgb) 16.3 14.0-18.0 [place] [address]-03-28 07:52:00 Test Item Value Reference Range Interpretation Comments Hct (test code = Hct) 50.5 42.0-54.0 [place] [address]-03-28 07:52:00 Test Item Value Reference Range Interpretation Comments MCV (test code = MCV) 91.3 80.0-94.0 [place] [address]-03-28 07:52:00 Test Item Value Reference Range Interpretation Comments MCH (test code = MCH) 29.5 pg 27.0-31.0 [place] 707112-03-28 07:52:00 Test Item Value Reference Range Interpretation Comments MCHC (test code = MCHC) 32.3 32.0-36.0 [place] 707112-03-28 07:52:00 Test Item Value Reference Range Interpretation Comments RDW (test code = RDW) 15.4 11.5-14.5 [place] 707112-03-28 07:52:00 Test Item Value Reference Range Interpretation Comments Platelet (test code = Platelet) 210 133-450 [place] 707112-03-28 07:52:00 Test Item Value Reference Range Interpretation Comments MPV (test code = MPV) 9.3 7.4-10.4 [facility]2022-03-27 10:12:00 Test Item Value Reference Range Interpretation Comments Glucose Lvl (test code = Glucose Lvl) 115 70-99 [facility]2022-03-27 10:12:00 Test Item Value Reference Range Interpretation Comments BUN (test code = BUN) 18 7-22 [facility]2022-03-27 10:12:00 Test Item Value Reference Range Interpretation Comments Creatinine Lvl (test code = Creatinine 0.78 0.50-1.40 Lvl) [facility]2022-03-27 10:12:00 Test Item Value Reference Range Interpretation Comments Sodium Lvl (test code = Sodium Lvl) 138 135-145 [place] 976982-03-27 10:12:00 Test Item Value Reference Range Interpretation Comments Potassium Lvl (test code = Potassium 4.6 3.5-5.1 Lvl) [place] 976982-03-27 10:12:00 Test Item Value Reference Range Interpretation Comments Chloride Lvl (test code = Chloride Lvl) 111 95-109 [place] 976982-03-27 10:12:00 Test Item Value Reference Range Interpretation Comments CO2 (test code = CO2) 21 24-32 [place] 976982-03-27 10:12:00 Test Item Value Reference Range Interpretation Comments AGAP (test code = AGAP) 10.6 10.0-20.0 [facility] System2022-03-27 10:12:00 Test Item Value Reference Range Interpretation Comments Calcium Lvl (test code = Calcium Lvl) 8.6 8.5-10.5 [facility]2022-03-27 10:12:00 Test Item Value Reference Range Interpretation Comments eGFR (test code = eGFR) 116 [facility]wqpWOPYLWITAJ4097-43-45 10:12:00 Test Item Value Reference Range Interpretation Comments WBC (test code = WBC) 8.2 3.7-10.4 [place] 707112-03-27 10:12:00 Test Item Value Reference Range Interpretation Comments RBC (test code = RBC) 5.14 4.70-6.10 [facility]GnkttjrEXZYBGLKRF5962-78-63 10:12:00 Test Item Value Reference Range Interpretation Comments Hgb (test code = Hgb) 15.5 14.0-18.0 [facility] HospitalDeaejsmXKMBGFLTTF0403-46-78 10:12:00 Test Item Value Reference Range Interpretation Comments Hct (test code = Hct) 46.0 42.0-54.0 [facility] HospitalLemyvojTZREJLFWVR7465-52-32 10:12:00 Test Item Value Reference Range Interpretation Comments MCV (test code = MCV) 89.5 80.0-94.0 [place] 707112-03-27 10:12:00 Test Item Value Reference Range Interpretation Comments MCH (test code = MCH) 30.2 pg 27.0-31.0 [facility] HospitalQjvaxgdVKSRBVOZZT7647-79-63 10:12:00 Test Item Value Reference Range Interpretation Comments MCHC (test code = MCHC) 33.8 32.0-36.0 [place] 707112-03-27 10:12:00 Test Item Value Reference Range Interpretation Comments RDW (test code = RDW) 15.3 11.5-14.5 [place] 707112-03-27 10:12:00 Test Item Value Reference Range Interpretation Comments Platelet (test code = Platelet) 358 133-450 [facility] HospitalOzrdtivVJMNALSOVC5152-24-70 10:12:00 Test Item Value Reference Range Interpretation Comments MPV (test code = MPV) 8.3 7.4-10.4 [place] 976982-03-27 06:53:00 Test Item Value Reference Range Interpretation Comments Glucose Lvl (test code = Glucose Lvl) 167 70-99 [place] 976982-03-27 06:53:00 Test Item Value Reference Range Interpretation Comments BUN (test code = BUN) 16 7-22 [place] 976982-03-27 06:53:00 Test Item Value Reference Range Interpretation Comments Creatinine Lvl (test code = Creatinine 0.99 0.50-1.40 Lvl) [place] 976982-03-27 06:53:00 Test Item Value Reference Range Interpretation Comments Sodium Lvl (test code = Sodium Lvl) 141 135-145 [place] 976982-03-27 06:53:00 Test Item Value Reference Range Interpretation Comments Potassium Lvl (test code = Potassium 4.5 3.5-5.1 Lvl) [place] 976982-03-27 06:53:00 Test Item Value Reference Range Interpretation Comments Chloride Lvl (test code = Chloride Lvl) 111 95-109 [facility]2022-03-27 06:53:00 Test Item Value Reference Range Interpretation Comments CO2 (test code = CO2) 22 24-32 [place] 976982-03-27 06:53:00 Test Item Value Reference Range Interpretation Comments AGAP (test code = AGAP) 12.5 10.0-20.0 [place] 976982-03-27 06:53:00 Test Item Value Reference Range Interpretation Comments Calcium Lvl (test code = Calcium Lvl) 8.6 8.5-10.5 [facility]2022-03-27 06:53:00 Test Item Value Reference Range Interpretation Comments eGFR (test code = eGFR) 98 [facility]NITROFURANTOIN:SUSC:PT:ISOLATE:ORDQN:[id number] 22:59:00 Test Item Value Reference Range Interpretation Comments Culture: Urine (test >100,000 CFU/mL Proteus code = Culture: mirabilis >100,000 CFU/mL Urine) Providencia stuartii [facility] HospitalLucasOFURANTOIN:SUSC:PT:ISOLATE:ORDQN:[id number] 22:59:00 Test Item Value Reference Range Interpretation Comments Providencia stuartii Providencia stuartii (test code = Providencia stuartii) [facility] CenterNITROFURANTOIN:SUSC:PT:ISOLATE:ORDQN:[id number] 22:59:00 Test Item Value Reference Range Interpretation Comments Proteus mirabilis (test Proteus mirabilis code = Proteus mirabilis) [facility] CenterCulture: [id number] 22:59:00 Test Item Value Reference Range Interpretation Comments Culture: Urine (test Holding For Better code = Culture: Urine) Growth [facility] CenterKon[facility] [id number] 21:03:00 Test Item Value Reference Range Interpretation Comments Glucose Lvl (test code = Glucose Lvl) 126 70-99 [facility] [id number] 21:03:00 Test Item Value Reference Range Interpretation Comments BUN (test code = BUN) 16 7-22 [facility] [id number] 21:03:00 Test Item Value Reference Range Interpretation Comments Creatinine Lvl (test code = Creatinine 0.76 0.50-1.40 Lvl) [facility] HospitalHouzeMe [id number] 21:03:00 Test Item Value Reference Range Interpretation Comments Sodium Lvl (test code = Sodium Lvl) 140 135-145 [facility] [id number] 21:03:00 Test Item Value Reference Range Interpretation Comments Potassium Lvl (test code = Potassium 3.3 3.5-5.1 Lvl) [facility] [id number] 21:03:00 Test Item Value Reference Range Interpretation Comments Chloride Lvl (test code = Chloride Lvl) 111 95-109 [facility] HospitalH[facility]ze[facility] [id number] 21:03:00 Test Item Value Reference Range Interpretation Comments CO2 (test code = CO2) 22 24-32 [facility] [id number] 21:03:00 Test Item Value Reference Range Interpretation Comments Calcium Lvl (test code = Calcium Lvl) 8.5 8.5-10.5 [facility] [id number] 21:03:00 Test Item Value Reference Range Interpretation Comments AGAP (test code = AGAP) 10.3 10.0-20.0 [place] 976982-03-26 21:03:00 Test Item Value Reference Range Interpretation Comments eGFR (test code = eGFR) 117 [place] 976982-03-26 21:03:00 Test Item Value Reference Range Interpretation Comments Lactic Acid Lvl (test code = Lactic 1.1 0.5-2.2 Acid Lvl) [place] 707112-03-26 21:03:00 Test Item Value Reference Range Interpretation Comments Segs (test code = Segs) 68.9 45.0-75.0 [place] 707112-03-26 21:03:00 Test Item Value Reference Range Interpretation Comments Lymphocytes (test code = Lymphocytes) 20.4 20.0-40.0 [place] 707112-03-26 21:03:00 Test Item Value Reference Range Interpretation Comments Monocytes (test code = Monocytes) 8.2 2.0-12.0 [place] 707112-03-26 21:03:00 Test Item Value Reference Range Interpretation Comments Eosinophils (test code = 2.2 See_Comment [A utomated message] The Eosinophils) system which ge nerated this result tra nsmitted reference range : <=4.0. The reference r boubacar was not used to int erpret this result as normal/abnormal . [place] [address]-03-26 21:03:00 Test Item Value Reference Range Interpretation Comments Basophils (test code = 0.3 See_Comment [Aut omated message] The Basophils) system which ge nerated this result tra nsmitted reference range : <=1.0. The reference r boubacar was not used to int erpret this result as normal/abnormal . [place] 707112-03-26 21:03:00 Test Item Value Reference Range Interpretation Comments Neutrophils # (test code = Neutrophils 5.5 1.5-8.1 #) [place] 707112-03-26 21:03:00 Test Item Value Reference Range Interpretation Comments Lymphocytes # (test code = Lymphocytes 1.6 1.0-5.5 #) [place] 707112-03-26 21:03:00 Test Item Value Reference Range Interpretation Comments Monocytes # (test code 0.7 See_Comment [Aut omated message] The = Monocytes #) system which generated this result tra nsmitted reference range : <=0.8. The reference r boubacar was not used to int erpret this result as normal/abnormal . [facility] HospitalRspfsaiOIAVVPJDJZ8332-68-16 21:03:00 Test Item Value Reference Range Interpretation Comments Eosinophils # (test code 0.2 See_Comment [A utomated message] The = Eosinophils #) system whic h generated this result tra nsmitted reference range : <=0.5. The reference r boubacar was not used to int erpret this result as normal/abnormal . [facility] HospitalWzpcwqqSTXOFIMPLT5774-10-60 21:03:00 Test Item Value Reference Range Interpretation Comments WBC (test code = WBC) 8.0 3.7-10.4 [facility] HospitalUjktilvHBOJKIXAFV7995-63-22 21:03:00 Test Item Value Reference Range Interpretation Comments RBC (test code = RBC) 5.37 4.70-6.10 [facility] HospitalEnjvyhlOPOYUXSRJK2097-06-53 21:03:00 Test Item Value Reference Range Interpretation Comments Hgb (test code = Hgb) 15.9 14.0-18.0 [facility] HospitalYhzofajYVDZQGBLRH4254-59-07 21:03:00 Test Item Value Reference Range Interpretation Comments Hct (test code = Hct) 47.3 42.0-54.0 [facility] HospitalRjyxscjKSRQMEIEBU8487-35-97 21:03:00 Test Item Value Reference Range Interpretation Comments MCV (test code = MCV) 88.1 80.0-94.0 [facility] HospitalWkfyfgpEDSZWMMBXI3114-42-63 21:03:00 Test Item Value Reference Range Interpretation Comments MCH (test code = MCH) 29.6 pg 27.0-31.0 [facility] HospitalJnamdvuAPBMDPPCWF2293-47-25 21:03:00 Test Item Value Reference Range Interpretation Comments MCHC (test code = MCHC) 33.6 32.0-36.0 [facility] HospitalBcouetkTAHBYSHBGH6933-83-34 21:03:00 Test Item Value Reference Range Interpretation Comments RDW (test code = RDW) 15.3 11.5-14.5 [place] 707112-03-26 21:03:00 Test Item Value Reference Range Interpretation Comments Platelet (test code = Platelet) 370 133-450 [facility] HospitalKfcfffjKAQWRLKHVJ6400-39-46 21:03:00 Test Item Value Reference Range Interpretation Comments MPV (test code = MPV) 8.1 7.4-10.4 [facility] AND [id number] 21:03:00 Test Item Value Reference Range Interpretation Comments UA Comment 1 (test Suboptimal specimen code = UA Comment 1) received. Results may be inaccurate due to the age of the specimen. Interpret results with caution. [facility] AND [id number] 21:03:00 Test Item Value Reference Range Interpretation Comments UA Color (test code = Yellow *NA*(10/07/21 UA Color) 4:03 PM) [facility] AND [id number] 21:03:00 Test Item Value Reference Range Interpretation Comments UA Turbidity (test code Slight *ABN*(10/07/21 = UA Turbidity) 4:03 PM) [facility] AND [id number] 21:03:00 Test Item Value Reference Range Interpretation Comments UA Spec Grav (test code = UA Spec 1.015 1 Grav) [facility] AND [id number] 21:03:00 Test Item Value Reference Range Interpretation Comments UA pH (test code = UA pH) 5.0 1 5.0-8.0 [facility] AND [id number] 21:03:00 Test Item Value Reference Range Interpretation Comments UA Protein (test code = UA Negative mg/dL Protein) [facility] AND [id number] 21:03:00 Test Item Value Reference Range Interpretation Comments UA Glucose (test code = UA Negative mg/dL Glucose) [facility] AND [id number] 21:03:00 Test Item Value Reference Range Interpretation Comments UA Ketones (test code = UA Negative mg/dL Ketones) [facility] AND [id number] 21:03:00 Test Item Value Reference Range Interpretation Comments UA Bili (test code = Negative *NA*(10/07/21 UA Bili) 4:03 PM) [facility] AND [id number] 21:03:00 Test Item Value Reference Range Interpretation Comments UA Blood (test code = Negative (10/07/21 4:03 UA Blood) PM) [facility] AND [id number] 21:03:00 Test Item Value Reference Range Interpretation Comments UA Urobilinogen (test code = UA no gt 0.1-1.0 Urobilinogen) [facility] AND [id number] 21:03:00 Test Item Value Reference Range Interpretation Comments UA Nitrite (test code Negative (10/07/21 4:03 = UA Nitrite) PM) [facility] AND [id number] 21:03:00 Test Item Value Reference Range Interpretation Comments UA Leuk Est (test code Large *ABN*(10/07/21 = UA Leuk Est) 4:03 PM) [facility] AND [id number] 21:03:00 Test Item Value Reference Range Interpretation Comments UA WBC (test code = 64 See_Comment [Automa lester message] The UA WBC) system which ge nerated this result transmit lester reference range : <=5. The reference range was not used to interpr et this result as dany l/abnormal. [facility] AND [id number] 21:03:00 Test Item Value Reference Range Interpretation Comments UA RBC (test code = 2 See_Comment [Automa lester message] The UA RBC) system which ge nerated this result transmit lester reference range : <=2. The reference range was not used to interpr et this result as dany l/abnormal. [facility] AND [id number] 21:03:00 Test Item Value Reference Range Interpretation Comments UA Mucus (test code = UA Mucus) Few /LPF [facility] AND [id number] 21:03:00 Test Item Value Reference Range Interpretation Comments UA Sq Epi (test code = UA Sq Epi) None Seen [facility]annCHEM [id number] 09:58:00 Test Item Value Reference Range Interpretation Comments Lactic Acid Lvl (test code = Lactic 2.4 0.5-2.2 Acid Lvl) [facility] CenterAxfdpycPTTJZZUBIX0028-26-44 09:58:00 Test Item Value Reference Range Interpretation Comments Sed Rate (test code = 13 See_Comment [Auto mated message] The Sed Rate) system which ge nerated this result transmit lester reference range : <=15. The reference range was not used to interpr et this result as dany l/abnormal. [facility] HospitalAjmqkfiTJJDCTVLKD6358-64-27 09:58:00 Test Item Value Reference Range Interpretation Comments C-REACTIVE PROTEIN (test code = 10.6 C-REACTIVE PROTEIN) [facility] [id number] 18:36:00 Test Item Value Reference Range Interpretation Comments Protein CSF (test code = Protein CSF) 14 15-45 [facility] [id number] 18:36:00 Test Item Value Reference Range Interpretation Comments Glucose CSF (test code = Glucose CSF) 67 45-80 [facility]2022-03-25 18:36:00 Test Item Value Reference Range Interpretation Comments Tube Num CSF (test xxxxxxx (10/06/21 1:36 code = Tube Num CSF) PM) [facility] [id number] 18:36:00 Test Item Value Reference Range Interpretation Comments Color CSF (test code Colorless (10/06/21 1:36 = Color CSF) PM) [facility]2022-03-25 18:36:00 Test Item Value Reference Range Interpretation Comments Clarity CSF (test code = Clear (10/06/21 1:36 Clarity CSF) PM) [facility]2022-03-25 18:36:00 Test Item Value Reference Range Interpretation Comments Supernat CSF (test Colorless (10/06/21 1:36 code = Supernat CSF) PM) [facility]2022-03-25 18:36:00 Test Item Value Reference Range Interpretation Comments Nucleated Cells CSF 0 See_Comment [Automa lester message] The (test code = Nucleated syste m which generated Cells CSF) this result tra nsmitted reference range : <=53. The reference r boubacar was not used to int erpret this result as normal/abnormal . [facility] [id number] 18:36:00 Test Item Value Reference Range Interpretation Comments RBC CSF (test code = 0 See_Comment [Autom ated message] The RBC CSF) system which ge nerated this result transmit lester reference range : <=03. The reference range was not used to interpr et this result as dany l/abnormal. [facility] [id number] 18:36:00 Test Item Value Reference Range Interpretation Comments Comment CSF (test Differential not code = Comment CSF) performed on WBC count of less than 5. [facility] CenterGram Stain [id number] 18:36:00 Test Item Value Reference Range Interpretation Comments Gram Stain Report Gram Stain Performed By: (test code = Gram [facility] Stain Report) [facility] CSF w/Gram [id number] 18:36:00 Test Item Value Reference Range Interpretation Comments Culture: CSF w/Gram Stain (test No Growth code = Culture: CSF w/Gram Stain) [facility] CenterVgcsjjcVYPJUNFTVA0154-80-29 08:28:00 Test Item Value Reference Range Interpretation Comments Coronavirus (COVID-19) Not Detected (10/06/21 OUMOU (test code = 3:28 AM) Coronavirus (COVID-19) OUMOU) [facility] [id number] 06:48:00 Test Item Value Reference Range Interpretation Comments Antibody Scrn (test Negative (10/06/21 1:48 code = Antibody Scrn) AM) [facility] [id number] 06:48:00 Test Item Value Reference Range Interpretation Comments ABO/Rh (test code = ABO/Rh) AB POS [facility] HospitalDtqskhjJTGCVNFLER0897-43-02 06:48:00 Test Item Value Reference Range Interpretation Comments Segs (test code = Segs) 70.8 45.0-75.0 [facility] HospitalBzedlpqRPCOXSMLCH5276-61-39 06:48:00 Test Item Value Reference Range Interpretation Comments Lymphocytes (test code = Lymphocytes) 20.8 20.0-40.0 [facility] HospitalRrrctykWPBOTEAPWR3077-23-70 06:48:00 Test Item Value Reference Range Interpretation Comments Monocytes (test code = Monocytes) 5.8 2.0-12.0 [facility] HospitalJnloskwHKYLKVMJKA2924-21-90 06:48:00 Test Item Value Reference Range Interpretation Comments Eosinophils (test code = 2.3 See_Comment [A utomated message] The Eosinophils) system which ge nerated this result tra nsmitted reference range : <=4.0. The reference r boubacar was not used to int erpret this result as normal/abnormal . [facility] HospitalLaqyhbkFXMNLEJDTT7868-47-43 06:48:00 Test Item Value Reference Range Interpretation Comments Basophils (test code = 0.3 See_Comment [Aut omated message] The Basophils) system which ge nerated this result tra nsmitted reference range : <=1.0. The reference r boubacar was not used to int erpret this result as normal/abnormal . [facility] HospitalWiktuieCUATMEJLOR0420-37-05 06:48:00 Test Item Value Reference Range Interpretation Comments Neutrophils # (test code = Neutrophils 8.4 1.5-8.1 #) [facility] HospitalRbbpkwmEGSFWIYBYJ5678-67-26 06:48:00 Test Item Value Reference Range Interpretation Comments Lymphocytes # (test code = Lymphocytes 2.5 1.0-5.5 #) [place] 707112-03-25 06:48:00 Test Item Value Reference Range Interpretation Comments Monocytes # (test code 0.7 See_Comment [Aut omated message] The = Monocytes #) system which generated this result tra nsmitted reference range : <=0.8. The reference r boubacar was not used to int erpret this result as normal/abnormal . [place] 707112-03-25 06:48:00 Test Item Value Reference Range Interpretation Comments Eosinophils # (test code 0.3 See_Comment [A utomated message] The = Eosinophils #) system whic h generated this result tra nsmitted reference range : <=0.5. The reference r boubacar was not used to int erpret this result as normal/abnormal . [place] 707112-03-25 06:48:00 Test Item Value Reference Range Interpretation Comments WBC X 10x3 (test code = WBC X 10x3) 11.9 3.7-10.4 [place] 707112-03-25 06:48:00 Test Item Value Reference Range Interpretation Comments RBC X 10x6 (test code = RBC X 10x6) 5.95 4.70-6.10 [place] 707112-03-25 06:48:00 Test Item Value Reference Range Interpretation Comments Hgb (test code = Hgb) 17.9 14.0-18.0 [place] 707112-03-25 06:48:00 Test Item Value Reference Range Interpretation Comments Hct (test code = Hct) 52.0 42.0-54.0 [place] [address]-03-25 06:48:00 Test Item Value Reference Range Interpretation Comments MCV (test code = MCV) 87.5 80.0-94.0 [place] [address]-03-25 06:48:00 Test Item Value Reference Range Interpretation Comments MCH (test code = MCH) 30.2 pg 27.0-31.0 [place] 707112-03-25 06:48:00 Test Item Value Reference Range Interpretation Comments MCHC (test code = MCHC) 34.5 32.0-36.0 [facility] HospitalOoskyqhWNNFYFEXVX6901-73-49 06:48:00 Test Item Value Reference Range Interpretation Comments RDW (test code = RDW) 15.4 11.5-14.5 [facility]KozyyokBITRPPBIQG9248-00-40 06:48:00 Test Item Value Reference Range Interpretation Comments Platelet (test code = Platelet) 414 133-450 [facility] RegionOnmapdlYDHLKEZVKW4858-81-72 06:48:00 Test Item Value Reference Range Interpretation Comments MPV (test code = MPV) 8.5 7.4-10.4 [facility] HospitalBrjebwrDQIUJIFQHP4559-16-70 06:48:00 Test Item Value Reference Range Interpretation Comments PT (test code = PT) 12.9 s 12.0-14.7 [facility] RegionPbjvborWRAZUCIHJE4902-40-57 06:48:00 Test Item Value Reference Range Interpretation Comments INR (test code = INR) 0.98 1 0.85-1.17 [facility]YvwecbdROVNNDHREV9040-31-33 06:48:00 Test Item Value Reference Range Interpretation Comments PTT (test code = PTT) 31.4 s 22.9-35.8 [facility] WITH [id number] 00:23:28 Test Item Value Reference Range Interpretation Comments WBC (test code = See_Comment H [Automated 4990-2) message] The sy stem which generated this result transmitted reference range : 4.20 - 10.70 10*3/?L. The reference range was not used to interpret this result as normal/abnormal . RBC (test code = See_Comment H [Automated 739-8) message] The sy stem which generated this [...] RDW-SD (test code = 47.6 fL 38.5-51.6 02760-2) RDW-CV (test code = 15.1 % 12.1-15.4 788-0) PLT (test code = See_Comment H [Automated 777-3) message] The sy stem which generated this result transmitted reference range : 150 - 328 10*3/ ?L. The reference r boubacar was not used to interpret this result as normal/abnormal . MPV (test code = 10.5 fL 9.8-13.0 91633-0) NRBC/100 WBC (test See_Comment [Automat ed code = 0843946416) message] The system which generated this result transmitted reference range : 0.0 - 10.0 /100 WBCs. The refer ence range was not u sed to interpret th is result as normal/abnormal . NRBC x10^3 (test code <0.01 See_Comment [Auto mated = 0992390108) message] The s ystem which generated this result transmitted reference range : 10*3/?L. The reference range was not used to interpret this result as normal/abnormal . GRAN MAT (NEUT) % 66.7 % (test code = 770-8) IMM GRAN % (test code 0.40 % = 3820108708) LYMPH % (test code = 24.4 % 736-9) MONO % (test code = 6.6 % 5905-5) EOS % (test code = 1.5 % 713-8) BASO % (test code = 0.4 % 706-2) GRAN MAT x10^3(ANC) 7.43 10*3/uL 1.99-6.95 H (test code = 2422822701) IMM GRAN x10^3 (test 0.04 10*3/uL 0.00-0.06 code = 9436417348) LYMPH x10^3 (test code 2.72 10*3/uL 1.09-3.23 = 731-0) MONO x10^3 (test code 0.74 10*3/uL 0.36-1.02 = 742-7) EOS x10^3 (test code = 0.17 10*3/uL 0.06-0.53 711-2) BASO x10^3 (test code 0.04 10*3/uL 0.01-0.09 = 704-7) Lab Interpretation Abnormal (test code = 42710-1) [facility]. METABOLIC PANEL ([id number])2021-09-29 00:18:07 Test Item Value Reference Range Interpretation Comments NA (test code = 139 mmol/L 135-145 8299826307) K (test code = 4.8 mmol/L 3.5-5.0 1732122379) CL (test code = 104 mmol/L 98-108 4480088559) CO2 TOTAL (test code = 22 mmol/L 23-31 L 5513734121) AGAP (test code = 2-16 3939022503) BUN (test code = 15 mg/dL 7-23 2007036737) GLUCOSE (test code = 93 mg/dL 70-110 0456599157) CREATININE (test code = 0.67 mg/dL 0.60-1.25 0289376422) TOTAL BILI (test code = 0.7 mg/dL 0.1-1.6 3911511602) CALCIUM (test code = 9.8 mg/dL 8.6-10.6 1402902404) T PROTEIN (test code = 8.9 g/dL 6.3-8.2 H 3929510104) ALBUMIN (test code = 4.9 g/dL 3.5-5.0 1208626457) ALK PHOS (test code = 126 U/L 34-122 H 5361783670) ALTv (test code = 43 U/L 5-50 1742-6) AST(SGOT) (test code = 28 U/L 13-40 8703620213) eGFR (test code = mL/min/1.73m2 3337788280) ARPITA (test code = ARPITA) Association of [...] tests). Lab Interpretation Abnormal (test code = 80819-9) [facility]. METABOLIC PANEL ([id number])2021-08-06 12:48:40 Test Item Value Reference Range Interpretation Comments NA (test code = 137 mmol/L 135-145 0532108128) K (test code = 4.5 mmol/L 3.5-5.0 3776272458) CL (test code = 107 mmol/L 98-108 4415117526) CO2 TOTAL (test code = 24 mmol/L 23-31 9592205205) AGAP (test code = 2-16 5553630375) BUN (test code = 16 mg/dL 7-23 1432884868) GLUCOSE (test code = 116 mg/dL 70-110 H 1238659617) CREATININE (test code = 0.62 mg/dL 0.60-1.25 0939060875) TOTAL BILI (test code = 0.4 mg/dL 0.1-1.6 3121044421) CALCIUM (test code = 8.7 mg/dL 8.6-10.6 4614949758) T PROTEIN (test code = 7.5 g/dL 6.3-8.2 3499683284) ALBUMIN (test code = 3.9 g/dL 3.5-5.0 8130806357) ALK PHOS (test code = 93 U/L 34-122 6116224306) ALTv (test code = 40 U/L 5-50 1742-6) AST(SGOT) (test code = 51 U/L 13-40 H 7847421253) eGFR (test code = mL/min/1.73m2 3554351171) ARPITA (test code = ARPITA) Association of [...] tests). Lab Interpretation Abnormal (test code = 67933-2) [facility] WITH [id number] 12:21:36 Test Item Value Reference Range Interpretation Comments WBC (test code = See_Comment [Automated 5886-2) message] The sy stem which generated this [...] RDW-SD (test code = 50.6 fL 38.5-51.6 75208-3) RDW-CV (test code = 15.3 % 12.1-15.4 788-0) PLT (test code = See_Comment H [Automated 777-3) message] The sy stem which generated this result transmitted reference range : 150 - 328 10*3/ ?L. The reference r boubacar was not used to interpret this result as normal/abnormal . MPV (test code = 10.3 fL 9.8-13.0 89950-9) NRBC/100 WBC (test See_Comment [Automat ed code = 2823528814) message] The system which generated this result transmitted reference range : 0.0 - 10.0 /100 WBCs. The refer ence range was not u sed to interpret th is result as normal/abnormal . NRBC x10^3 (test code <0.01 See_Comment [Auto mated = 5920310076) message] The s ystem which generated this result transmitted reference range : 10*3/?L. The reference range was not used to interpret this result as normal/abnormal . GRAN MAT (NEUT) % 61.5 % (test code = 770-8) IMM GRAN % (test code 0.80 % = 5258112024) LYMPH % (test code = 27.8 % 736-9) MONO % (test code = 6.9 % 5905-5) EOS % (test code = 2.4 % 713-8) BASO % (test code = 0.6 % 706-2) GRAN MAT x10^3(ANC) 6.07 10*3/uL 1.99-6.95 (test code = 4450362522) IMM GRAN x10^3 (test 0.08 10*3/uL 0.00-0.06 H code = 7771909722) LYMPH x10^3 (test code 2.75 10*3/uL 1.09-3.23 = 731-0) MONO x10^3 (test code 0.68 10*3/uL 0.36-1.02 = 742-7) EOS x10^3 (test code = 0.24 10*3/uL 0.06-0.53 711-2) BASO x10^3 (test code 0.06 10*3/uL 0.01-0.09 = 704-7) Lab Interpretation Abnormal (test code = 03021-3) [facility] Metabolic Panel (NA, K, CL, CO2, GLUCOSE, BUN, CREATININE, CA)2021-08-04 12:40:30 Test Item Value Reference Range Interpretation Comments NA (test code = 139 mmol/L 135-145 4008289208) K (test code = 3.9 mmol/L 3.5-5.0 0578452071) CL (test code = 108 mmol/L 98-108 6992779683) CO2 TOTAL (test code = 25 mmol/L 23-31 4793800554) AGAP (test code = 2-16 0908597952) BUN (test code = 14 mg/dL 7-23 5727259496) GLUCOSE (test code = 107 mg/dL 70-110 1742915513) CREATININE (test code = 0.61 mg/dL 0.60-1.25 1345518850) CALCIUM (test code = 8.1 mg/dL 8.6-10.6 L 3377295059) eGFR (test code = mL/min/1.73m2 4275416482) ARPITA (test code = ARPITA) Association of [...] tests). Lab Interpretation Abnormal (test code = 21728-5) [facility] with [id number] 12:23:51 Test Item Value Reference Range Interpretation Comments WBC (test code = See_Comment [Automated 4190-2) message] The sy stem which generated this result transmitted reference range : 4.20 - 10.70 10*3/?L. The reference range was not used to interpret this result as normal/abnormal . RBC (test code = See_Comment [Automated 383-8) message] The sy stem which generated this [...] RDW-SD (test code = 49.3 fL 38.5-51.6 29083-7) RDW-CV (test code = 15.3 % 12.1-15.4 788-0) PLT (test code = See_Comment H [Automated 777-3) message] The sy stem which generated this result transmitted reference range : 150 - 328 10*3/ ?L. The reference r boubacar was not used to interpret this result as normal/abnormal . MPV (test code = 10.2 fL 9.8-13.0 73699-0) NRBC/100 WBC (test See_Comment [Automat ed code = 8386002768) message] The system which generated this result transmitted reference range : 0.0 - 10.0 /100 WBCs. The refer ence range was not u sed to interpret th is result as normal/abnormal . NRBC x10^3 (test code <0.01 See_Comment [Auto mated = 9331123456) message] The s ystem which generated this result transmitted reference range : 10*3/?L. The reference range was not used to interpret this result as normal/abnormal . GRAN MAT (NEUT) % 56.7 % (test code = 770-8) IMM GRAN % (test code 0.60 % = 3570018289) LYMPH % (test code = 31.1 % 736-9) MONO % (test code = 8.7 % 5905-5) EOS % (test code = 2.4 % 713-8) BASO % (test code = 0.5 % 706-2) GRAN MAT x10^3(ANC) 4.83 10*3/uL 1.99-6.95 (test code = 4988539084) IMM GRAN x10^3 (test 0.05 10*3/uL 0.00-0.06 code = 2448886571) LYMPH x10^3 (test code 2.64 10*3/uL 1.09-3.23 = 731-0) MONO x10^3 (test code 0.74 10*3/uL 0.36-1.02 = 742-7) EOS x10^3 (test code = 0.20 10*3/uL 0.06-0.53 711-2) BASO x10^3 (test code 0.04 10*3/uL 0.01-0.09 = 704-7) Lab Interpretation Abnormal (test code = 66692-8) [facility]. METABOLIC PANEL ([id number])2021-08-03 06:32:14 Test Item Value Reference Range Interpretation Comments NA (test code = 139 mmol/L 135-145 7091011816) K (test code = 4.5 mmol/L 3.5-5.0 3963591098) CL (test code = 102 mmol/L 98-108 5151980343) CO2 TOTAL (test code = 26 mmol/L 23-31 9702624872) AGAP (test code = 2-16 7681350655) BUN (test code = 16 mg/dL 7-23 4152850698) GLUCOSE (test code = 99 mg/dL 70-110 9719877743) CREATININE (test code = 0.83 mg/dL 0.60-1.25 8695350832) TOTAL BILI (test code = 0.6 mg/dL 0.1-1.4 4270828142) CALCIUM (test code = 9.5 mg/dL 8.6-10.6 7176545374) T PROTEIN (test code = 8.6 g/dL 6.3-8.2 H 9684598221) ALBUMIN (test code = 4.6 g/dL 3.5-5.0 4348000793) ALK PHOS (test code = 121 U/L 34-122 3070156681) ALTv (test code = 58 U/L 5-50 H 1742-6) AST(SGOT) (test code = 32 U/L 13-40 4612871191) eGFR (test code = mL/min/1.73m2 3832642423) ARPITA (test code = ARPITA) Association of [...] tests). Lab Interpretation Abnormal (test code = 44033-1) [facility] WITH [id number] 05:48:31 Test Item Value Reference Range Interpretation Comments WBC (test code = See_Comment H [Automated 0990-2) message] The sy stem which generated this result transmitted reference range : 4.20 - 10.70 10*3/?L. The reference range was not used to interpret this result as normal/abnormal . RBC (test code = See_Comment H [Automated 279-8) message] The sy stem which generated this [...] RDW-SD (test code = 49.1 fL 38.5-51.6 85724-7) RDW-CV (test code = 15.5 % 12.1-15.4 H 788-0) PLT (test code = See_Comment H [Automated 777-3) message] The sy stem which generated this result transmitted reference range : 150 - 328 10*3/ ?L. The reference r boubacar was not used to interpret this result as normal/abnormal . MPV (test code = 10.4 fL 9.8-13.0 89251-0) NRBC/100 WBC (test See_Comment [Automat ed code = 4481962605) message] The system which generated this result transmitted reference range : 0.0 - 10.0 /100 WBCs. The refer ence range was not u sed to interpret th is result as normal/abnormal . NRBC x10^3 (test code <0.01 See_Comment [Auto mated = 4825728883) message] The s ystem which generated this result transmitted reference range : 10*3/?L. The reference range was not used to interpret this result as normal/abnormal . GRAN MAT (NEUT) % 64.8 % (test code = 770-8) IMM GRAN % (test code 0.70 % = 9528714509) LYMPH % (test code = 25.2 % 736-9) MONO % (test code = 6.9 % 5905-5) EOS % (test code = 1.9 % 713-8) BASO % (test code = 0.5 % 706-2) GRAN MAT x10^3(ANC) 7.80 10*3/uL 1.99-6.95 H (test code = 3326115819) IMM GRAN x10^3 (test 0.08 10*3/uL 0.00-0.06 H code = 4532784332) LYMPH x10^3 (test code 3.04 10*3/uL 1.09-3.23 = 731-0) MONO x10^3 (test code 0.83 10*3/uL 0.36-1.02 = 742-7) EOS x10^3 (test code = 0.23 10*3/uL 0.06-0.53 711-2) BASO x10^3 (test code 0.06 10*3/uL 0.01-0.09 = 704-7) Lab Interpretation Abnormal (test code = 16251-0) [facility]. METABOLIC PANEL ([id number])2021-08-01 02:19:08 Test Item Value Reference Range Interpretation Comments NA (test code = 136 mmol/L 135-145 1217563313) K (test code = 4.4 mmol/L 3.5-5.0 0240980652) CL (test code = 99 mmol/L 98-108 0189458723) CO2 TOTAL (test code = 25 mmol/L 23-31 0294546964) AGAP (test code = 2-16 5619112718) BUN (test code = 19 mg/dL 7-23 0008120692) GLUCOSE (test code = 103 mg/dL 70-110 3467890156) CREATININE (test code = 0.70 mg/dL 0.60-1.25 0045409164) TOTAL BILI (test code = 0.7 mg/dL 0.1-1.1 7794918872) CALCIUM (test code = 9.2 mg/dL 8.6-10.6 0556622568) T PROTEIN (test code = 9.4 g/dL 6.3-8.2 H 9137636095) ALBUMIN (test code = 4.8 g/dL 3.5-5.0 9926030250) ALK PHOS (test code = 146 U/L 34-122 H 4777458919) ALTv (test code = 75 U/L 5-50 H 1742-6) AST(SGOT) (test code = 37 U/L 13-40 6805504860) eGFR (test code = mL/min/1.73m2 8165714360) ARPITA (test code = ARPITA) Association of [...] tests). Lab Interpretation Abnormal (test code = 91668-9) [facility] Test Item Value Reference Range Interpretation Comments LIPASE (test code = 0206983849) 86 U/L 0-220 Lab Interpretation (test code = Normal 04243-6) [facility] WITH [id number] 01:55:49 Test Item Value Reference Range Interpretation [...] RDW-SD (test code = 48.7 fL 38.5-51.6 74241-5) RDW-CV (test code = 15.4 % 12.1-15.4 788-0) PLT (test code = See_Comment H [Automated 777-3) message] The sy stem which generated this result transmitted reference range : 150 - 328 10*3/ ?L. The reference r boubacar was not used to interpret this result as normal/abnormal . MPV (test code = 9.9 fL 9.8-13.0 04624-7) NRBC/100 WBC (test See_Comment [Automat ed code = 3646394963) message] The system which generated this result transmitted reference range : 0.0 - 10.0 /100 WBCs. The refer ence range was not u sed to interpret th is result as normal/abnormal . NRBC x10^3 (test code <0.01 See_Comment [Auto mated = 7218040322) message] The s ystem which generated this result transmitted reference range : 10*3/?L. The reference range was not used to interpret this result as normal/abnormal . GRAN MAT (NEUT) % 69.8 % (test code = 770-8) IMM GRAN % (test code 0.50 % = 9518073334) LYMPH % (test code = 20.5 % 736-9) MONO % (test code = 6.8 % 5905-5) EOS % (test code = 1.9 % 713-8) BASO % (test code = 0.5 % 706-2) GRAN MAT x10^3(ANC) 7.72 10*3/uL 1.99-6.95 H (test code = 6594229118) IMM GRAN x10^3 (test 0.05 10*3/uL 0.00-0.06 code = 7991211384) LYMPH x10^3 (test code 2.26 10*3/uL 1.09-3.23 = 731-0) MONO x10^3 (test code 0.75 10*3/uL 0.36-1.02 = 742-7) EOS x10^3 (test code = 0.21 10*3/uL 0.06-0.53 711-2) BASO x10^3 (test code 0.06 10*3/uL 0.01-0.09 = 704-7) Lab Interpretation Abnormal (test code = 67279-5) [facility] 23:33:52 Test Item Value Reference Interpretation Comments Range D-DIMER (test code = See_Comment [Autom ated 7077009349) message] The system which generated this result [...] diagnosis. Lab Interpretation Normal (test code = 14931-1) [facility] ([id number])2021-07-29 22:42:48 Test Item Value Reference Range Interpretation Comments NA (test code = 135 mmol/L 135-145 1839611214) K (test code = 4.6 mmol/L 3.5-5.0 6235095769) CL (test code = 102 mmol/L 98-108 1131829588) CO2 TOTAL (test code = 24 mmol/L 23-31 3326497695) AGAP (test code = 2-16 9433986323) BUN (test code = 17 mg/dL 7-23 6515270632) GLUCOSE (test code = 107 mg/dL 70-110 9831200260) CREATININE (test code = 0.60 mg/dL 0.60-1.25 2807996504) TOTAL BILI (test code = 1.0 mg/dL 0.1-1.4 7831225885) CALCIUM (test code = 9.4 mg/dL 8.6-10.6 2582412428) T PROTEIN (test code = 8.6 g/dL 6.3-8.2 H 6551085345) ALBUMIN (test code = 4.6 g/dL 3.5-5.0 5191587272) ALK PHOS (test code = 159 U/L 34-122 H 5078330678) ALTv (test code = 77 U/L 5-50 H 2-6) AST(SGOT) (test code = 38 U/L 13-40 5095917041) eGFR (test code = mL/min/1.73m2 2431109165) ARPITA (test code = ARPITA) Association of [...] tests). Lab Interpretation Abnormal (test code = 24149-0) [facility] WITH [id number] 22:30:27 Test Item Value Reference Range Interpretation [...] RDW-SD (test code = 48.0 fL 38.5-51.6 09185-4) RDW-CV (test code = 15.1 % 12.1-15.4 788-0) PLT (test code = See_Comment H [Automated 777-3) message] The system which generated this result transmit lester reference range : 150 - 328 10*3/ ?L. The reference range was not u sed to interpret th is result as normal/abnormal . MPV (test code = 10.3 fL 9.8-13.0 75347-9) NRBC/100 WBC (test See_Comment [Automat ed code = 0029172326) message] The system which generated this result transmit lester reference range : 0.0 - 10.0 /100 WBCs. The reference range was not used to interpret this result as normal/abnormal . NRBC x10^3 (test code <0.01 See_Comment [Auto mated = 2212283724) message] The system which generated this result transmit lester reference range : 10*3/?L. The reference range was not used to interpret this result as normal/abnormal . GRAN MAT (NEUT) % 79.9 % (test code = 770-8) IMM GRAN % (test code 0.50 % = 0352439793) LYMPH % (test code = 11.8 % 736-9) MONO % (test code = 6.6 % 5905-5) EOS % (test code = 0.9 % 713-8) BASO % (test code = 0.3 % 706-2) GRAN MAT x10^3(ANC) 10.70 10*3/uL 1.99-6.95 H (test code = 4241602150) IMM GRAN x10^3 (test 0.07 10*3/uL 0.00-0.06 H code = 2502551567) LYMPH x10^3 (test code 1.58 10*3/uL 1.09-3.23 = 731-0) MONO x10^3 (test code 0.89 10*3/uL 0.36-1.02 = 742-7) EOS x10^3 (test code = 0.12 10*3/uL 0.06-0.53 711-2) BASO x10^3 (test code 0.04 10*3/uL 0.01-0.09 = 704-7) Lab Interpretation Abnormal (test code = 29391-0) [facility]. METABOLIC PANEL ([id number])2021-06-07 23:02:15 Test Item Value Reference Range Interpretation Comments NA (test code = 137 mmol/L 135-145 3947260800) K (test code = 4.5 mmol/L 3.5-5.0 3512590994) CL (test code = 109 mmol/L 98-108 H 7149722818) CO2 TOTAL (test code = 22 mmol/L 23-31 L 9038401131) AGAP (test code = 2-16 7032954773) BUN (test code = 7 mg/dL 7-23 5566110688) GLUCOSE (test code = 87 mg/dL 70-110 0827753655) CREATININE (test code = 0.61 mg/dL 0.60-1.25 7854707078) TOTAL BILI (test code = 0.5 mg/dL 0.1-1.0 0783335034) CALCIUM (test code = 9.0 mg/dL 8.6-10.6 0583535010) T PROTEIN (test code = 6.9 g/dL 6.3-8.2 6370442094) ALBUMIN (test code = 3.5 g/dL 3.5-5.0 0724514195) ALK PHOS (test code = 112 U/L 34-122 9517054773) ALTv (test code = 35 U/L 5-50 2-6) AST(SGOT) (test code = 21 U/L 13-40 3591378150) eGFR (test code = mL/min/1.73m2 2817815327) ARPITA (test code = ARPITA) Association of [...] tests). Lab Interpretation Abnormal (test code = 70149-7) [facility] WITH [id number] 22:51:57 Test Item Value Reference Range Interpretation [...] RDW-SD (test code = 42.4 fL 38.5-51.6 26062-8) RDW-CV (test code = 13.6 % 12.1-15.4 788-0) PLT (test code = See_Comment H [Automated 777-3) message] The sy stem which generated this result transmitted reference range : 150 - 328 10*3/ ?L. The reference r boubacar was not used to interpret this result as normal/abnormal . MPV (test code = 9.4 fL 9.8-13.0 L 36622-8) NRBC/100 WBC (test See_Comment [Automat ed code = 8162037192) message] The system which generated this result transmitted reference range : 0.0 - 10.0 /100 WBCs. The refer ence range was not u sed to interpret th is result as normal/abnormal . NRBC x10^3 (test code <0.01 See_Comment [Auto mated = 8607459521) message] The s ystem which generated this result transmitted reference range : 10*3/?L. The reference range was not used to interpret this result as normal/abnormal . GRAN MAT (NEUT) % 76.4 % (test code = 770-8) IMM GRAN % (test code 0.40 % = 1084320790) LYMPH % (test code = 16.3 % 736-9) MONO % (test code = 5.6 % 5905-5) EOS % (test code = 1.0 % 713-8) BASO % (test code = 0.3 % 706-2) GRAN MAT x10^3(ANC) 8.81 10*3/uL 1.99-6.95 H (test code = 1514839617) IMM GRAN x10^3 (test 0.05 10*3/uL 0.00-0.06 code = 9494070456) LYMPH x10^3 (test code 1.88 10*3/uL 1.09-3.23 = 731-0) MONO x10^3 (test code 0.64 10*3/uL 0.36-1.02 = 742-7) EOS x10^3 (test code = 0.12 10*3/uL 0.06-0.53 711-2) BASO x10^3 (test code 0.03 10*3/uL 0.01-0.09 = 704-7) Lab Interpretation Abnormal (test code = 72346-9) [facility] NOW RAPID TESTING)2020-11-21 01:01:33 Test Item Value Reference Range Interpretation Comments SARS-CoV-2 Rapid ID NOW Not Detected Not Detected (test code = 00590-5) ARPITA (test code = ARPITA) ID NOW COVID-19 Assay is an isothermal nucleic acid amplification test intended for the qualitative detection of nucleic acid from SARS-CoV-2 viral RNA in nasopharyngeal (BODY MAKE UP ARTIST) specimens. It is used under Emergency Use [...] indicated. Lab Interpretation Normal (test code = 63291-7) [facility] ([id number])2020-11-21 01:00:33 Test Item Value Reference Range Interpretation Comments NA (test code = 140 mmol/L 135-145 5762652276) K (test code = 4.4 mmol/L 3.5-5.0 2258606495) CL (test code = 103 mmol/L 98-108 8739615425) CO2 TOTAL (test code = 28 mmol/L 23-31 4632391389) AGAP (test code = 2-16 2376400732) BUN (test code = 15 mg/dL 7-23 0452432961) GLUCOSE (test code = 85 mg/dL 70-110 7893000177) CREATININE (test code = 0.60 mg/dL 0.60-1.25 8403028062) TOTAL BILI (test code = 1.1 mg/dL 0.1-1.7 4522064262) CALCIUM (test code = 9.0 mg/dL 8.6-10.6 7730304003) T PROTEIN (test code = 7.8 g/dL 6.3-8.2 3644827036) ALBUMIN (test code = 4.0 g/dL 3.5-5.0 2193232318) ALK PHOS (test code = 166 U/L 34-122 H 6409862507) ALTv (test code = 42 U/L 5-50 1742-6) AST(SGOT) (test code = 32 U/L 13-40 0273724769) eGFR (test code = mL/min/1.73m2 5234459618) ARPITA (test code = ARPITA) Association of [...] tests). Lab Interpretation Abnormal (test code = 10738-7) [facility] 01:00:13 Test Item Value Reference Range Interpretation Comments LIPASE (test code = 3244868117) 57 U/L 0-220 Lab Interpretation (test code = Normal 42205-6) [facility] 00:51:55 Test Item Value Reference Range Interpretation Comments APPEARANCE (test code = Turbid Clear A 7037323603) COLOR (test code = Yellow Yellow 9978605902) PH (test code = 4.8-8.0 1486988326) SP GRAVITY (test code = 1.003-1.030 3196987173) GLU U QUAL (test code = Normal Normal 2394736474) BLOOD (test code = 1+ Negative A 0899682410) KETONES (test code = 20 mg/dL Negative A 4590534090) PROTEIN (test code = 100 mg/dL Negative A 2887-8) UROBILIN (test code = 2.0 mg/dL Normal A 5999733222) BILIRUBIN (test code = Negative Negative 1724447397) NITRITE (test code = Positive Negative A 0183888401) LEUK CHAD (test code = 250/uL Negative A 7085702841) RBC/HPF (test code = See_Comment H [Autom ated message] 3831929388) The system [employer] generated this result transmit lester reference range : 0 - 3 HPF. The refe rence range was not u sed to interpret th is result as normal/abnormal . WBC/HPF (test code = >182 See_Comment H [Autom ated message] 2749127168) The system [employer] generated this result transmit lester reference range : 0 - 5 HPF. The refe rence range was not u sed to interpret th is result as normal/abnormal . BACTERIA (test code = Many Negative A 6725693600) MUCOUS (test code = Moderate Negative LPF A 5855131415) WBC CLUMPS (test code = See_Comment H [Au tomated message] 7561648194) The system [employer] generated this result transmit lester reference range : <=1 HPF. The refere nce range was not u sed to interpret th is result as normal/abnormal . Lab Interpretation (test Abnormal code = 94097-7) [facility] WITH [id number] 00:46:14 Test Item Value Reference Range Interpretation [...] RDW-SD (test code = 47.6 fL 38.5-51.6 31423-3) RDW-CV (test code = 15.2 % 12.1-15.4 788-0) PLT (test code = See_Comment H [Automated 777-3) message] The sy stem which generated this result transmitted reference range : 150 - 328 10*3/ ?L. The reference r boubacar was not used to interpret this result as normal/abnormal . MPV (test code = 9.4 fL 9.8-13.0 L 18179-5) NRBC/100 WBC (test See_Comment [Automat ed code = 6240650530) message] The system which generated this result transmitted reference range : 0.0 - 10.0 /100 WBCs. The refer ence range was not u sed to interpret th is result as normal/abnormal . NRBC x10^3 (test code <0.01 See_Comment [Auto mated = 4565748476) message] The s ystem which generated this result transmitted reference range : 10*3/?L. The reference range was not used to interpret this result as normal/abnormal . GRAN MAT (NEUT) % 61.3 % (test code = 770-8) IMM GRAN % (test code 0.70 % = 5777997789) LYMPH % (test code = 26.4 % 736-9) MONO % (test code = 9.9 % 5905-5) EOS % (test code = 1.3 % 713-8) BASO % (test code = 0.4 % 706-2) GRAN MAT x10^3(ANC) 6.39 10*3/uL 1.99-6.95 (test code = 8989842017) IMM GRAN x10^3 (test 0.07 10*3/uL 0.00-0.06 H code = 0910470066) LYMPH x10^3 (test code 2.75 10*3/uL 1.09-3.23 = 731-0) MONO x10^3 (test code 1.03 10*3/uL 0.36-1.02 H = 742-7) EOS x10^3 (test code = 0.14 10*3/uL 0.06-0.53 711-2) BASO x10^3 (test code 0.04 10*3/uL 0.01-0.09 = 704-7) Lab Interpretation Abnormal (test code = 00629-6) [facility] [id number] 13:03:00 Test Item Value Reference Range Interpretation Comments POC-GLUCOSE METER 140 mg/dL 70-110 H : TESTED A T [facility] 67[address] (BEAKER) (test code = [place], 1538) [address]: Enterprise Architect Manager/Techni rose ID = [id number] for VERO ANDRE AARON POCT-GLUCOSE [id number] 09:15:00 Test Item Value Reference Range Interpretation Comments POC-GLUCOSE METER 142 mg/dL 70-110 H : TESTED A T [facility] 67[address] (BEAKER) (test code = [facility], [facility]8) [address]: Enterprise Architect Manager/Techni rose ID = [id number] for AARON COTTRELL POCT-GLUCOSE [id number] 20:56:00 Test Item Value Reference Range Interpretation Comments POC-GLUCOSE METER 134 mg/dL 70-110 H : TESTED A T [facility] [address] (BEAKER) (test code = [facility], [facility]8) 638[address]: Enterprise Architect Manager/Techni rose ID = [id number] for MG LANZA POCT-GLUCOSE [id number] 16:46:00 Test Item Value Reference Range Interpretation Comments POC-GLUCOSE METER 91 mg/dL 70-110 : TESTED A T [facility] 6720 (BEAKER) (test code = [facility], [facility]8) [id number]: Enterprise Architect Manager/Techni rose ID = [id number] for AARON CABRAL POCT-GLUCOSE [id number] 12:19:00 Test Item Value Reference Range Interpretation Comments POC-GLUCOSE METER 237 mg/dL 70-110 H : TESTED A T [facility] 6720 (BEAKER) (test code = [facility], [employer] [facility]) [id number]: Enterprise Architect Manager/Techni rose ID = [id number] for AARON COTTRELL MR, EXTREMITY, LOWER, WITHOUT CONTRAST, [id number] 09:12:00FINAL REPORT MRI of the right and [...] the mid foot and forefoot, incompletely imaged. Nodiscrete drainable fluid collection is identified. There is no marrow signal abnormality to suggest o steomyelitis. There is a small nonspecific joint effusion at the ankle and subtalar joint. Scattereddegenerative changes are noted. There is marked fatty atrophy of the distal leg and foot musculature. Severe flexor hallucis longus tendinopathy. No tenosynovitis. Left foot: There is a large area of soft tissue defect and granulation tissue at the posteromedial aspect of the heel, reaching the calcaneus, but there is no drainable fluid collection. Deformity is noted in the hindfoot, and the forefootappears adducted. No acute fracture. No marrow signal abnormality is identified to indicate acute osteomyelitis. There is no significant joint effusion. There is severe atrophy of the foot and distal leg musculature. No significant tenosynovitis identified. IMPRESSION: Granulation/scar tissue at the medial aspect of the heel bilaterally. No MR evidence of osteomyelitis. Severe muscle atrophy. Signed:Carly Garzaort Verified Date/Time: 07/29/2019 09:12:01 Reading Location: [facility] [id number] Ortho Consult Reading Room MR, EXTREMITY, LOWER, WITHOUT CONTRAST, [id number] 09:12:00FINAL REPORT MRI of the right and [...] the mid foot and forefoot, incompletely imaged. Nodiscrete drainable fluid collection is identified. There is no marrow signal abnormality to suggest osteomyelitis. There is a small nonspecific joint effusion at the ankle and subtalar joint. Scattereddegenerative changes are noted. There is marked fatty atrophy of the distal leg and foot musculature. Severe flexor hallucis longus tendinopathy. No tenosynovitis. Left foot: There is a large area of soft tissue defect and granulation tissue at the posteromedial aspect of the heel, reaching the calcaneus, but there is no drainable fluid collection. Deformity is noted in the hindfoot, and the forefootappears adducted. No acute fracture. No marrow signal abnormality is identified to indicate acute ost eomyelitis. There is no significant joint effusion. There is severe atrophy of the foot and distal leg musculature. No significant tenosynovitis identified. IMPRESSION: Granulation/scar tissue at the medial aspect of the heel bilaterally. No MR evidence of osteomyelitis. Severe muscle atrophy. Signed:Carly Garza Verified Date/Time: 07/29/2019 09:12:01 Reading Location: [address] Ortho Consult Reading Room POCT-GLUCOSE [id number] 08:47:00 Test Item Value Reference Range Interpretation Comments POC-GLUCOSE METER 264 mg/dL 70-110 H : TESTED A T [facility] 6720 (BEAKER) (test code = [facility], 153) 30461: Enterprise Architect Manager/Techni rose ID = [id number] for AARON COTTRELL ISLET CELL AB [id number] 07:43:00 Test Item Value Reference Range Interpretation Comments ISLET CELL AB Refer to individual AUTOVERIFICATION (test Islet Cell Ab code = 2556) and/or Islet Cell Ab Titer results. POCT-GLUCOSE [id number] 21:27:00 Test Item Value Reference Range Interpretation Comments POC-GLUCOSE METER 130 mg/dL 70-110 H : TESTED A T [facility] 6720 (BEAKER) (test code = [facility], 1538) 27955: Enterprise Architect Manager/Techni rose ID = [id number] for NADIRA CARINFERNIE BLOOD [id number] 13:00:00 Test Item Value Reference Range Interpretation Comments CULTURE (BEAKER) (test No growth in 5 days code = 1095) BLOOD [id number] 13:00:00 Test Item Value Reference Range Interpretation Comments CULTURE (BEAKER) (test No growth in 5 days code = 1095) POCT-GLUCOSE [id number] 12:57:00 Test Item Value Reference Range Interpretation Comments POC-GLUCOSE METER 138 mg/dL 70-110 H : TESTED A T [facility] 6720 (BEAKER) (test code = [facility], 1538) 49641: Enterprise Architect Manager/Techni rose ID = [id number] for JUAN ANTONIO PORTER POCT-GLUCOSE [id number] 08:43:00 Test Item Value Reference Range Interpretation Comments POC-GLUCOSE METER 226 mg/dL 70-110 H : [facility] ([facility]) (test code = [facility], 153) 18681: Enterprise Architect Manager/Techni rose ID = [id number] for [place] ANGELINA, JUAN ANTONIO POCT-GLUCOSE [id number] 21:11:00 Test Item Value Reference Range Interpretation Comments POC-GLUCOSE METER 254 mg/dL 70-110 H : Notified RN/MD: ([facility]) (test code = TESTED AT [facility] 6720 1538) [facility], 34375: Enterprise Architect Manager/Techni rose ID = [id number] for FERNIE APARICIO POCT-GLUCOSE [id number] 21:02:00 Test Item Value Reference Range Interpretation Comments POC-GLUCOSE METER 177 mg/dL 70-110 H : [facility] 67[facility] ([facility]) (test code = [facility], 153) 39245: Enterprise Architect Manager/Techni rose ID = [id number] for [place] LLSPARKLE, JUAN ANTONIO POCT-GLUCOSE [id number] 12:31:00 Test Item Value Reference Range Interpretation Comments POC-GLUCOSE METER 215 mg/dL 70-110 H : [facility] 67[facility] ([facility]) (test code = [facility], 153) 22592: Enterprise Architect Manager/Techni rose ID = [id number] for SARAH CATESIS, JUAN ANTONIO WOUND CULTURE + GRAM [id number] 10:10:00 Test Item Value Reference Interpretation Comments Range CULTURE ([facility]) PROTEUS MIRABILIS A 1+ Pro teus [...] gram negative (BEAKER) (test code = rods 537904) GRAM STAIN RESULT 2+ gram positive (BEAKER) (test code = rods 703381) GRAM STAIN RESULT <1+ gram negative (BEAKER) (test code = coccobacilli 687868) GRAM STAIN RESULT 2+ gram positive (BEAKER) (test code = cocci in pairs 224278) POCT-GLUCOSE [id number] 08:52:00 Test Item Value Reference Range Interpretation Comments POC-GLUCOSE METER 209 mg/dL 70-110 H : TESTED A T [facility] 6720 (BEAKER) (test code = [facility], 153) 07369: Enterprise Architect Manager/Techni rose ID = [id number] for JER PORTERE POCT-GLUCOSE [id number] 21:26:00 Test Item Value Reference Range Interpretation Comments POC-GLUCOSE METER 255 mg/dL 70-110 H : TESTED A T [facility] 6720 (BEAKER) (test code = [facility], 153) 61832: Enterprise Architect Manager/Techni rose ID = [id number] for CR ISWELL, TIA POCT-GLUCOSE [id number] 17:34:00 Test Item Value Reference Range Interpretation Comments POC-GLUCOSE METER 227 mg/dL 70-110 H : TESTED A T [facility] 6720 (BEAKER) (test code = [facility], 153) 70760: Enterprise Architect Manager/Techni rose ID = [id number] for CHAVEZ NNY, LETI POCT-GLUCOSE [id number] 11:28:00 Test Item Value Reference Range Interpretation Comments POC-GLUCOSE METER 282 mg/dL 70-110 H : TESTED A T [facility] 6720 (BEAKER) (test code = [facility], 153) 95879: Enterprise Architect Manager/Techni rose ID = [id number] for CHAVEZ NNY, LETI POCT-GLUCOSE [id number] 08:19:00 Test Item Value Reference Range Interpretation Comments POC-GLUCOSE METER 329 mg/dL 70-110 H : TESTED A T [facility] 6720 (BEAKER) (test code = [facility], 153) 05939: Enterprise Architect Manager/Techni rose ID = [id number] for AARON COTTRELL POCT-GLUCOSE [id number] 21:32:00 Test Item Value Reference Range Interpretation Comments POC-GLUCOSE METER 275 mg/dL 70-110 H : TESTED A T [facility] 6720 (BEAKER) (test code = [facility], 153) 68962: Enterprise Architect Manager/Techni rose ID = [id number] for CR ISWELL, TIA POCT-GLUCOSE [id number] 17:47:00 Test Item Value Reference Range Interpretation Comments POC-GLUCOSE METER 304 mg/dL 70-110 H : TESTED A T [facility] 6720 (BEAKER) (test code = [facility], 1538) 39384: Enterprise Architect Manager/Techni rose ID = [id number] for ERIN ARIZMENDI URINE [id number] 15:21:00 Test Item Value Reference Range Interpretation [...] Tobramycin (test code R = 25) POCT-GLUCOSE [id number] 12:16:00 Test Item Value Reference Range Interpretation Comments POC-GLUCOSE METER 337 mg/dL 70-110 H : [facility] 67[facility] (AKER) (test code = [facility], 1538) 71714: Enterprise Architect Manager/Techni rose ID = [id number] for ERIN ARIZMENDI BASIC METABOLIC [id number] 10:39:00 Test Item Value Reference Range Interpretation [...] S NOT APPLICABLE FOR DIALYSIS PATIEN TS. Enterprise Architect Manager ID - JANET FPOCT-GLUCOSE [id number] 08:29:00 Test Item Value Reference Range Interpretation Comments POC-GLUCOSE METER 395 mg/dL 70-110 H : TESTED A T [facility] 6720 (BEAKER) (test code = [facility] [place], 1538) [address]: Enterprise Architect Manager/Techni rose ID = [id number] for ERIN ARIZMENDI CBC W/PLT COUNT & AUTO [id number] 06:40:00 Test Item Value Reference Range Interpretation [...] PERCENT (BEAKER) (test code = 2801) POCT-GLUCOSE [id number] 19:55:00 Test Item Value Reference Range Interpretation Comments POC-GLUCOSE METER 369 mg/dL 70-110 H : TESTED A T [facility] 6720 (BEAKER) (test code = [facility], 153) 57805: Enterprise Architect Manager/Techni rose ID = [id number] for MG LANZA POCT-GLUCOSE [id number] 16:45:00 Test Item Value Reference Range Interpretation Comments POC-GLUCOSE METER 272 mg/dL 70-110 H : TESTED A T [facility] 6720 (BEAKER) (test code = [facility], 1538) 48288: Enterprise Architect Manager/Techni rose ID = [id number] for TH FRIEDA HARPER POCT-GLUCOSE [id number] 11:40:00 Test Item Value Reference Range Interpretation Comments POC-GLUCOSE METER 277 mg/dL 70-110 H : TESTED A T [facility] 6720 (BEAKER) (test code = [facility], 153) 88462: Enterprise Architect Manager/Techni rose ID = [id number] for TH MARCELLAAS, FRIEDA BASIC METABOLIC [id number] 10:22:00 Test Item Value Reference Range Interpretation [...] S NOT APPLICABLE FOR DIALYSIS PATIEN TS. Enterprise Architect Manager ID - NTPLIPID [id number] 10:17:00 Test Item Value Reference Range Interpretation Comments TRIGLYCERIDES (BEAKER) (test code = 692 mg/dL 540) CHOLESTEROL (BEAKER) (test code = 196 mg/dL 631) HDL CHOLESTEROL (BEAKER) (test code 24 mg/dL = 976) Calculated LDL not valid if triglyceride >400 mg/dLTriglyceride Reference Range: Low Risk <150Borderline 150-199 High Risk 200-499 Very High Risk >=500Cholesterol Reference Range: Low Risk <200 Borderline 200-239 High Risk >240HDL Cholesterol Reference Range: Low Risk >=60 High Risk <40LDL Cholesterol Reference Range: Optimal <100 Near Optimal 100-129 Borderline 130-159 High 160-189 Very High >=190 Enterprise Architect Manager ID - NTPPOCT-GLUCOSE [id number] 08:28:00 Test Item Value Reference Range Interpretation Comments POC-GLUCOSE METER 388 mg/dL 70-110 H : TESTED Sharon Palacios [facility] 6720 (BEAKER) (test code = [facility] [place], 1538) [address]: Enterprise Architect Manager/Techni rose ID = [id number] for AARON COTTRELL HEMOGLOBIN [id number] 07:54:00 Test Item Value Reference Range Interpretation Comments HEMOGLOBIN A1C (BEAKER) (test code = 10.4 % 4.3-6.1 H 368) CBC W/PLT COUNT & AUTO [id number] 05:56:00 Test Item Value Reference Range Interpretation [...] IMMATURE GRANULOCYTES-RELATIVE 1 % 0-1 PERCENT ([facility]) (test code = 2801) POCT-GLUCOSE [id number] 23:47:00 Test Item Value Reference Range Interpretation Comments POC-GLUCOSE METER 359 mg/dL 70-110 H : Notified RN/MD: ([facility]) (test code = TESTED AT [place] [address] 153) [facility], 6[address]: Enterprise Architect Manager/Techni rose ID = [id number] for LATOLIVERRIDLEIGH, MICHELINE ICE POCT-GLUCOSE [id number] 21:13:00 Test Item Value Reference Range Interpretation Comments POC-GLUCOSE METER 315 mg/dL 70-110 H : TESTED A T [facility] 6720 ([facility]) (test code = [facility], 153) 26047: Enterprise Architect Manager/Techni rose ID = [id number] for Sm ith, Ana POCT-GLUCOSE [id number] 21:13:00 Test Item Value Reference Range Interpretation Comments POC-GLUCOSE METER 331 mg/dL 70-110 H : [facility] 67[facility] ([facility]) (test code = [facility], 153) 49291: Enterprise Architect Manager/Techni rose ID = [id number] for RO SARAHI, LINDSAYECA POCT-GLUCOSE [id number] 10:30:00 Test Item Value Reference Range Interpretation Comments POC-GLUCOSE METER 341 mg/dL 70-110 H : TESTED A T [facility] 6720 ([facility]) (test code = [facility], 153) 12030: Enterprise Architect Manager/Techni rose ID = [id number] for Sm ith, Ana CBC W/PLT COUNT & AUTO [id number] 08:48:00 Test Item Value Reference Range Interpretation Comments WHITE BLOOD CELL COUNT ([facility]) 6.7 K/ L 3.5-10.5 (test code = 775) RED BLOOD CELL COUNT (AKER) 5.28 M/ L 4.63-6.08 (test code = 761) HEMOGLOBIN ([facility]) (test code = 14.6 GM/DL 13.7-17.5 410) HEMATOCRIT ([facility]) (test code = 44.9 % 40.1-51.0 411) [...] (BEAKER) (test code = Present 1371) HEMOGLOBIN [id number] 06:39:00 Test Item Value Reference Range Interpretation Comments HEMOGLOBIN A1C (BEAKER) (test code = 10.5 % 4.3-6.1 H 368) LIPID [id number] 04:57:00 Test Item Value Reference Range Interpretation Comments TRIGLYCERIDES (BEAKER) 1251 mg/dL Speci men moderately (test code = 540) hemolyzed CHOLESTEROL (BEAKER) 215 mg/dL Specime n moderately (test code = 631) hemolyzed HDL CHOLESTEROL 22 mg/dL (BEAKER) (test code = 976) Calculated LDL not valid if triglyceride >400 mg/dLTriglyceride Reference Range: Low Risk <150Borderline 150-199 High Risk 200-499 Very High Risk >=500Cholesterol Reference Range: Low Risk <200 Borderline 200-239 High Risk >240HDL Cholesterol Reference Range: Low Risk >=60 High Risk<40LDL Cholesterol Reference Range: Optimal <100 Near Optimal 100-129 Borderline 130-159 High 160-189 Very High >=190 Specimen moderately lipemicBASIC METABOLIC [id number] 04:56:00 Test Item Value Reference Range Interpretation [...] NOT APPLICABLE FOR DIALYSIS PATIEN TS. POCT-GLUCOSE [id number] 21:53:00 Test Item Value Reference Range Interpretation Comments POC-GLUCOSE METER > mg/dL 70-110 HH : Notified RN/MD: TESTED (BEAKER) (test code = AT [facility] 6720 [facility] 1538) [facility], 770 30: Enterprise Architect Manager/Techni rose ID = [id number] for DENN IS, DESIRAE U/S, ABDOMINAL, [id number] 19:54:00Reason for exam:->Evaluation of 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 PROFESSIONAL shunt and for possible cyst or pseudocyst Should this be performed at the bedside?->YesFINAL REPORT Limited abdominal ultrasound. CLINICAL HISTORY: Evaluation of 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 PROFESSIONAL shunt for possible cyst or pseudocyst. COMPARISON STUDY: None available. FINDINGS: Sonographic assessment of the abdomen was performed assessing for fluid in the region of the patient's shunts. No fluid collections are seen. However, the study is limited by the patient's body habitus. CT scan would be more sensitive. Signed: Solo Miles MDReport Verified Date/Time: 07/22/2019 19:54:10 Reading Location: [address] Consult Reading Room POCT-GLUCOSE [id number] 19:34:00 Test Item Value Reference Range Interpretation Comments POC-GLUCOSE METER 474 mg/dL 70-110 HH : Notified RN/MD: (FELICIANO) (test code = TESTED AT [place] [address] 1530) [facility], [address]: Enterprise Architect Manager/Techni rose ID = [id number] for AK ROSMERYUMARILYNN URINALYSIS W/ REFLEX URINE [id number] 17:48:00 Test Item Value Reference Range Interpretation [...] = Moderate 517) SOURCE(BEAKER) (test code = 9535) CBC W/PLT COUNT & AUTO [id number] 17:38:00 Test Item Value Reference Range Interpretation [...] 3438) Received comment: User comments: Slide comments:POCT-GLUCOSE [id number] 16:27:00 Test Item Value Reference Range Interpretation Comments POC-GLUCOSE METER 424 mg/dL 70-110 HH : Notified RN/MD: (FELICIANO) (test code = TESTED AT [facility] 9042 1334) [facility], [address]: Enterprise Architect Manager/Techni rose ID = [id number] for AK MARILYNN EPSTEIN CT, BRAIN, WITHOUT [id number] 15:31:00FINAL REPORT CT, BRAIN, WITHOUT CONTRAST CLINICAL INDICATION: Hydrocephalus COMPARISON: None TECHNIQUE: Noncontrast axial CT imaging of the brain and skull. DOSE REDUCTION: Dose modulation, iterative reconstruction, and/or weight-based adjustment of the mA/kV was utilized to reduce the radiation dose to as low as reasonably achievable. FINDINGS:A total of two ventricular drainagecatheters are present. A right transverse temporal catheter terminates across the midline just abovethe level of the foramen of Monro. A right parietal approach catheter terminates in the pineal region. Supratentorial ventricular configuration is slitlike. There is no herniation. The basilar cisternsare preserved. There is no identifiable recent infarct. [...] MDReport Verified Date/Time: 07/22/2019 15:31:08 Reading Location: [address] Neuro Reading Room RAD, SHUNT [id number] 15:13:00Reason for exam:->concern for VPS malfunctionFINAL REPORT [...] of the catheter appear contiguous. Signed: Raina Plasenciaort Verified Date/Time: 07/22/2019 15:13:54 Reading Location: [facility] Reading Room POCT-GLUCOSE [id number] 11:38:00 Test Item Value Reference Range Interpretation Comments POC-GLUCOSE METER 394 mg/dL 70-110 H : TESTED A T [facility] 6720 (BEAKER) (test code = [facility] Damaso [facility], 1538) [address]: Enterprise Architect Manager/Techni rose ID = [id number] for MARILYNN MAO HEMOGLOBIN [id number] 09:15:00 Test Item Value Reference Range Interpretation Comments HEMOGLOBIN A1C (BEAKER) (test code = 10.4 % 4.3-6.1 H 368) TSH/FREE T4 IF [id number] 07:54:00 Test Item Value Reference Range Interpretation Comments THYROID STIMULATING HORMONE 1.40 uIU/mL 0.35-4.94 (BEAKER) (test code = 772) POCT-GLUCOSE [id number] 07:48:00 Test Item Value Reference Range Interpretation Comments POC-GLUCOSE METER > mg/dL 70-110 HH : Notified RN/MD: TESTED (BEAKER) (test code = AT [facility] 6720 [facility] 1538) [facility], 770 30: Enterprise Architect Manager/Techni rose ID = [id number] for MARILYNN SMITH BASIC METABOLIC [id number] 07:44:00 Test Item Value Reference Range Interpretation [...] NOT APPLICABLE FOR DIALYSIS PATIEN TS. LIPID [id number] 07:34:00 Test Item Value Reference Range Interpretation Comments TRIGLYCERIDES (BEAKER) (test code = 750 mg/dL 540) CHOLESTEROL (BEAKER) (test code = 196 mg/dL 631) HDL CHOLESTEROL (BEAKER) (test code 22 mg/dL = 976) Calculated LDL not valid if triglyceride >400 mg/dLTriglyceride Reference Range: Low Risk <150Borderline 150-199 High Risk 200-499 Very High Risk >=500Cholesterol Reference Range: Low Risk <200 Borderline 200-239 High Risk >240HDL Cholesterol Reference Range: Low Risk >=60 High Risk<40LDL Cholesterol Reference Range: Optimal <100 Near Optimal 100-129 Borderline 130-159 High 160-189 Very High >=190POCT-GLUCOSE [id number] 00:49:00 Test Item Value Reference Range Interpretation Comments POC-GLUCOSE METER 399 mg/dL 70-110 H : TESTED A T [facility] 6720 (BEAKER) (test code = [facility], 1538) [address]: Enterprise Architect Manager/Techni rose ID = [id number] for CHERYLE LINDA RAD, FOOT, 2 VIEWS, [id number] 22:28:00Reason for exam:->osteomyletitis FINAL REPORT TECHNIQUE: Two views each of the bilateral feet HISTORY: osteomyletitis. COMPARISON: None. IMPRESSION:No acute displaced fracture or dislocation. Joint spaces are within normal limits.Severe soft tissue swelling.On the right subcentimeter nonspecific calcifications adjacent to the heel plantar aspect. Correlate with physical exam. Severely limited exam due to patientbody habitus. No definite cortical irregularity.There is clinical concern for osteomyelitis, recommend MRI with contrast. Signed: Matias Cardenaseport Verified Date/Time: 07/21/2019 22:28:25 Reading Location: [facility] C013W Consult Reading Room RAD, FOOT, 2 VIEWS, [id number] 22:28:00Reason for exam:->osteomyletitsFINAL REPORT TECHNIQUE: Two views each of the bilateral feet HISTORY: osteomyletitis. COMPARISON: None. IMPRESSION:No acute displaced fracture or dislocation. Joint spaces are within normal limits.Severe soft tissue swelling.On the right subcentimeter nonspecific calcifications adjacent to the heel plantar aspect. Correlate with physical exam. Severely limited exam due to patientbody habitus. No definite cortical irregularity.There is clinical concern for osteomyelitis, recommend MRI with contrast. Signed: Matias Cardenasort Verified Date/Time: 07/21/2019 22:28:25 Reading Location: [facility] C013W Consult Reading Room Electronically signed by: MATIAS CARDENAS DO on07/21/2019 10:28 PMPOCT-GLUCOSE [id number] 21:04:00 Test Item Value Reference Range Interpretation Comments POC-GLUCOSE METER 430 mg/dL 70-110 HH : Notified RN/MD: (FELICIANO) (test code = TESTED AT [facility] 6720 1538) [facility], [address]: Enterprise Architect Manager/Techni rose ID = [id number] for ALBERTO OLIVER ERTAPENEM:SUSC:PT:ISOLATE:ORDQN:[id number] 16:48:00 Test Item Value Reference Range Interpretation Comments Culture: Urine (test >100,000 CFU/mL Proteus code = Culture: mirabilis 10,000 - Urine) 50,000 CFU/mL Skin [facility]SUSC:PT:ISOLATE:ORDQN:[id number] 16:48:00 Test Item Value Reference Range Interpretation Comments Proteus mirabilis (test Proteus mirabilis code = Proteus mirabilis) [facility] [id number] 16:48:00 Test Item Value Reference Range Interpretation Comments UA Nitrite (test code Negative (05/22/18 10:48 = UA Nitrite) AM) [facility] AND [id number] 16:48:00 Test Item Value Reference Range Interpretation Comments UA Bili (test code = Negative *NA*(05/22/18 UA Bili) 10:48 AM) [facility] AND [id number] 16:48:00 Test Item Value Reference Range Interpretation Comments UA Ketones (test code Negative *NA*(05/22/18 = UA Ketones) 10:48 AM) [facility] AND [id number] 16:48:00 Test Item Value Reference Range Interpretation Comments UA Blood (test code = Trace *ABN*(05/22/18 UA Blood) 10:48 AM) [facility] AND [id number] 16:48:00 Test Item Value Reference Range Interpretation Comments UA Urobilinogen (test code = UA 0.2 0.1-1.0 Urobilinogen) [facility] AND [id number] 16:48:00 Test Item Value Reference Range Interpretation Comments UA Leuk Est (test code Large *ABN*(05/22/18 = UA Leuk Est) 10:48 AM) [facility] AND [id number] 16:48:00 Test Item Value Reference Range Interpretation Comments UA Protein (test code Negative (05/22/18 10:48 = UA Protein) AM) [facility] AND [id number] 16:48:00 Test Item Value Reference Range Interpretation Comments UA Glucose (test code Negative (05/22/18 10:48 = UA Glucose) AM) [facility] AND [id number] 16:48:00 Test Item Value Reference Range Interpretation Comments UA pH (test code = UA pH) 7.0 1 5.0-8.0 [facility] AND [id number] 16:48:00 Test Item Value Reference Range Interpretation Comments UA Spec Grav (test code = UA Spec 1.015 1 Grav) [facility] AND [id number] 16:48:00 Test Item Value Reference Range Interpretation Comments UA Color (test code = Yellow *NA*(05/22/18 UA Color) 10:48 AM) [facility] AND [id number] 16:48:00 Test Item Value Reference Range Interpretation Comments UA Turbidity (test code = Clear (05/22/18 10:48 UA Turbidity) AM) [facility] AND [id number] 16:48:00 Test Item Value Reference Range Interpretation Comments UA Mucus (test code = UA Mucus) Few /LPF [facility] AND [id number] 16:48:00 Test Item Value Reference Range Interpretation Comments UA Bacteria (test code = UA Few /HPF Bacteria) [facility] AND [id number] 16:48:00 Test Item Value Reference Range Interpretation Comments UA RBC (test code = 0-2 /HPF See_Comment [Automa lester message] The UA RBC) system which ge nerated this result tra nsmitted reference range : <=2. The reference range was not used to interpr et this result as dany l/abnormal. [facility] AND [id number] 16:48:00 Test Item Value Reference Range Interpretation Comments UA Sq Epi (test code = None Seen (05/22/18 UA Sq Epi) 10:48 AM) [facility] AND [id number] 16:48:00 Test Item Value Reference Range Interpretation Comments UA WBC (test code = UA WBC) 51-100 /HPF [facility]C:PT:ISOLATE:ORDQN:[id number] 16:48:00 Test Item Value Reference Range Interpretation Comments Culture: Urine (test >100,000 CFU/mL Proteus code = Culture: mirabilis 10,000 - Urine) 50,000 CFU/mL Skin Marilee [facility]:SUSC:PT:ISOLATE:ORDQN:[id number] 16:48:00 Test Item Value Reference Range Interpretation Comments Proteus mirabilis (test Proteus mirabilis code = Proteus mirabilis) [facility] AND [id number] 16:48:00 Test Item Value Reference Range Interpretation Comments UA Nitrite (test code Negative (05/22/18 10:48 = UA Nitrite) AM) [facility] AND [id number] 16:48:00 Test Item Value Reference Range Interpretation Comments UA Bili (test code = Negative *NA*(05/22/18 UA Bili) 10:48 AM) [facility] AND [id number] 16:48:00 Test Item Value Reference Range Interpretation Comments UA Ketones (test code Negative *NA*(05/22/18 = UA Ketones) 10:48 AM) [facility] AND [id number] 16:48:00 Test Item Value Reference Range Interpretation Comments UA Blood (test code = Trace *ABN*(05/22/18 UA Blood) 10:48 AM) [facility] AND [id number] 16:48:00 Test Item Value Reference Range Interpretation Comments UA Urobilinogen (test code = UA 0.2 0.1-1.0 Urobilinogen) [facility] AND [id number] 16:48:00 Test Item Value Reference Range Interpretation Comments UA Leuk Est (test code Large *ABN*(05/22/18 = UA Leuk Est) 10:48 AM) [facility] AND [id number] 16:48:00 Test Item Value Reference Range Interpretation Comments UA Protein (test code Negative (05/22/18 10:48 = UA Protein) AM) [facility] AND [id number] 16:48:00 Test Item Value Reference Range Interpretation Comments UA Glucose (test code Negative (05/22/18 10:48 = UA Glucose) AM) [facility] AND [id number] 16:48:00 Test Item Value Reference Range Interpretation Comments UA pH (test code = UA pH) 7.0 1 5.0-8.0 [facility] AND [id number] 16:48:00 Test Item Value Reference Range Interpretation Comments UA Spec Grav (test code = UA Spec 1.015 1 Grav) [facility] AND [id number] 16:48:00 Test Item Value Reference Range Interpretation Comments UA Color (test code = Yellow *NA*(05/22/18 UA Color) 10:48 AM) [facility] AND [id number] 16:48:00 Test Item Value Reference Range Interpretation Comments UA Turbidity (test code = Clear (05/22/18 10:48 UA Turbidity) AM) [facility] AND [id number] 16:48:00 Test Item Value Reference Range Interpretation Comments UA Mucus (test code = UA Mucus) Few /LPF [facility] AND [id number] 16:48:00 Test Item Value Reference Range Interpretation Comments UA Bacteria (test code = UA Few /HPF Bacteria) [facility] AND [id number] 16:48:00 Test Item Value Reference Range Interpretation Comments UA RBC (test code = 0-2 /HPF See_Comment [Automa lester message] The UA RBC) system which ge nerated this result tra nsmitted reference range : <=2. The reference range was not used to interpr et this result as dany l/abnormal. [facility] AND [id number] 16:48:00 Test Item Value Reference Range Interpretation Comments UA Sq Epi (test code = None Seen (05/22/18 UA Sq Epi) 10:48 AM) [facility] AND [id number] 16:48:00 Test Item Value Reference Range Interpretation Comments UA WBC (test code = UA WBC) 51-100 /HPF [facility] [employer] [id number] 11:57:00 Test Item Value Reference Range Interpretation Comments Antibody Scrn (test Negative (05/22/18 5:57 code = Antibody Scrn) AM) [facility] [employer] [id number] 11:57:00 Test Item Value Reference Range Interpretation Comments ABO/Rh (test code = ABO/Rh) AB POS [facility] [id number] 11:57:00 Test Item Value Reference Range Interpretation Comments PTT (test code = PTT) 33.4 s 22.9-35.8 [facility] [id number] 11:57:00 Test Item Value Reference Range Interpretation Comments PT (test code = PT) 13.7 s 12.0-14.7 [facility] [id number] 11:57:00 Test Item Value Reference Range Interpretation Comments INR (test code = INR) 1.05 1 0.85-1.17 [facility] [employer] [id number] 11:57:00 Test Item Value Reference Range Interpretation Comments Antibody Scrn (test Negative (05/22/18 5:57 code = Antibody Scrn) AM) [employer] [id number] 11:57:00 Test Item Value Reference Range Interpretation Comments ABO/Rh (test code = ABO/Rh) AB POS [id number] 11:57:00 Test Item Value Reference Range Interpretation Comments PTT (test code = PTT) 33.4 s 22.9-35.8 [place] [id number] 11:57:00 Test Item Value Reference Range Interpretation Comments PT (test code = PT) 13.7 s 12.0-14.7 [place] [id number] 11:57:00 Test Item Value Reference Range Interpretation Comments INR (test code = INR) 1.05 1 0.85-1.17 [facility]2018-11-08 10:50:01 Test Item Value Reference Range Interpretation Comments Potassium Lvl (test code = Potassium 4.2 3.5-5.1 Lvl) [facility]2018-11-08 10:50:01 Test Item Value Reference Range Interpretation Comments Sodium Lvl (test code = Sodium Lvl) 137 135-145 [facility]2018-11-08 10:50:01 Test Item Value Reference Range Interpretation Comments Creatinine Lvl (test code = Creatinine 0.85 0.50-1.40 Lvl) [facility]2018-11-08 10:50:01 Test Item Value Reference Range Interpretation Comments AGAP (test code = AGAP) 9.2 10.0-20.0 [place] [id number] 10:50:01 Test Item Value Reference Range Interpretation Comments ACT (TEG) Rapid (test code = ACT (TEG) 136 s 86-118 Rapid) [id number] 10:50:01 Test Item Value Reference Range Interpretation Comments Split Point Rapid (test code = Split 0.6 min Point Rapid) [facility] HospitalFahivvsHTYMPHDXTY9807-55-71 10:50:01 Test Item Value Reference Range Interpretation Comments R-time Rapid (test code = R-time 0.9 min 0.4-0.7 Rapid) [facility] HospitalZysxnudYIBOVJUDIF5080-74-87 10:50:01 Test Item Value Reference Range Interpretation Comments K-time Rapid (test code = K-time 1.4 min 0.6-2.3 Rapid) [facility] HospitalRffrmhsSSCHKDAJDS5807-57-06 10:50:01 Test Item Value Reference Range Interpretation Comments Angle Rapid (test code = Angle 71 degrees 64-80 Rapid) [facility] HospitalOwbjobeWHJMFJZYAE6805-63-55 10:50:01 Test Item Value Reference Range Interpretation Comments G-value Rapid (test code = G-value 12.7 5.0-11.6 Rapid) [facility] HospitalRazzpyrSYHJTDCBHZ1737-13-90 10:50:01 Test Item Value Reference Range Interpretation Comments Max Amplitude Rapid (test code = Max 72 mm 52-71 Amplitude Rapid) [facility] HospitalJgmnvtoOQSTZSSRXG7767-55-99 10:50:01 Test Item Value Reference Range Interpretation Comments Estimated % Lysis Rapid 0.1 See_Comment [Au tomated message] The (test code = Estimated syste m which generated % Lysis Rapid) this result t ransmitted reference range : <=7.5. The reference r boubacar was not used to int erpret this result as normal/abnormal . [facility] HospitalUpxhyjpPBDCLMWHTL8342-96-57 10:50:01 Test Item Value Reference Range Interpretation Comments Platelet (test code = Platelet) 367 133-450 [facility] HospitalGlaxklfNYQMLPDHFY6747-34-14 10:50:01 Test Item Value Reference Range Interpretation Comments MPV (test code = MPV) 7.8 7.4-10.4 [facility] HospitalFeasuyxSGEPBGEGFM8952-38-80 10:50:01 Test Item Value Reference Range Interpretation Comments MCH (test code = MCH) 27.4 pg 27.0-31.0 [facility] HospitalJoglbrzYFXMJNNUPY3570-14-74 10:50:01 Test Item Value Reference Range Interpretation Comments MCV (test code = MCV) 80.7 80.0-94.0 [facility] HospitalYntnkdhHTJFBYGIRW0811-93-39 10:50:01 Test Item Value Reference Range Interpretation Comments MCHC (test code = MCHC) 34.0 32.0-36.0 [facility] HospitalTkygrasYHGEUTDCOW2903-03-97 10:50:01 Test Item Value Reference Range Interpretation Comments RDW (test code = RDW) 18.9 11.5-14.5 [facility] HospitalPwacldzZWSMMYOMUR4612-41-78 10:50:01 Test Item Value Reference Range Interpretation Comments Hct (test code = Hct) 43.3 42.0-54.0 [facility] HospitalImtwigaCDOVWADPOB7230-33-90 10:50:01 Test Item Value Reference Range Interpretation Comments WBC (test code = WBC) 9.3 3.7-10.4 [facility] HospitalNdnnvyvYUWVKDBENW5776-41-51 10:50:01 Test Item Value Reference Range Interpretation Comments Hgb (test code = Hgb) 14.7 14.0-18.0 [facility] HospitalDlvnxleQFFBJLRQBD8266-40-24 10:50:01 Test Item Value Reference Range Interpretation Comments RBC (test code = RBC) 5.36 4.70-6.10 [facility] HospitalQmrrscaJZILGBZSOC9055-10-41 10:50:01 Test Item Value Reference Range Interpretation Comments Eosinophils # (test code 0.2 See_Comment [A utomated message] The = Eosinophils #) system whic h generated this result tra nsmitted reference range : <=0.5. The reference r boubacar was not used to int erpret this result as normal/abnormal . [facility] HospitalZhuavstHJPQSFTFAB5519-35-39 10:50:01 Test Item Value Reference Range Interpretation Comments Basophils # (test code 0.1 See_Comment [Aut omated message] The = Basophils #) system which generated this result tra nsmitted reference range : <=0.2. The reference r boubacar was not used to int erpret this result as normal/abnormal . [facility] HospitalMxzyvmdVQGHSNFIDN9519-43-83 10:50:01 Test Item Value Reference Range Interpretation Comments Lymphocytes # (test code = Lymphocytes 1.8 1.0-5.5 #) [facility] HospitalFclazdvWXIGZVFANP6752-39-18 10:50:01 Test Item Value Reference Range Interpretation Comments Monocytes # (test code 0.9 See_Comment [Aut omated message] The = Monocytes #) system which generated this result tra nsmitted reference range : <=0.8. The reference r boubacar was not used to int erpret this result as normal/abnormal . [facility] HospitalAfgsizbWEITHFJFPE8838-60-87 10:50:01 Test Item Value Reference Range Interpretation Comments Neutrophils # (test code = Neutrophils 6.3 1.5-8.1 #) [facility] HospitalIiovjbxXGJQXSJRVF9508-88-33 10:50:01 Test Item Value Reference Range Interpretation Comments Eosinophils (test code = 2.0 See_Comment [A utomated message] The Eosinophils) system which ge nerated this result tra nsmitted reference range : <=4.0. The reference r boubacar was not used to int erpret this result as normal/abnormal . [facility] HospitalBobhqbmNRBAZWCJJU4869-79-73 10:50:01 Test Item Value Reference Range Interpretation Comments Segs (test code = Segs) 67.4 45.0-75.0 [facility] HospitalRfufanlVAASDFOHNO3095-34-00 10:50:01 Test Item Value Reference Range Interpretation Comments Lymphocytes (test code = Lymphocytes) 19.9 20.0-40.0 [facility] HospitalNuiztgbOCVGITAEKF2175-24-60 10:50:01 Test Item Value Reference Range Interpretation Comments Basophils (test code = 1.0 See_Comment [Aut omated message] The Basophils) system which ge nerated this result tra nsmitted reference range : <=1.0. The reference r boubacar was not used to int erpret this result as normal/abnormal . [facility] HospitalZwcqwngFQEYMKXUUS9354-41-82 10:50:01 Test Item Value Reference Range Interpretation Comments Monocytes (test code = Monocytes) 9.7 2.0-12.0 [facility]2018-11-08 10:50:01 Test Item Value Reference Range Interpretation Comments eGFR (test code = eGFR) 133 [facility]2018-11-08 10:50:01 Test Item Value Reference Range Interpretation Comments Calcium Lvl (test code = Calcium Lvl) 9.4 8.5-10.5 [facility]2018-11-08 10:50:01 Test Item Value Reference Range Interpretation Comments CO2 (test code = CO2) 28 24-32 [facility]2018-11-08 10:50:01 Test Item Value Reference Range Interpretation Comments BUN (test code = BUN) 14 7-22 [facility]2018-11-08 10:50:01 Test Item Value Reference Range Interpretation Comments Glucose Lvl (test code = Glucose Lvl) 89 70-99 [facility]2018-11-08 10:50:01 Test Item Value Reference Range Interpretation Comments Chloride Lvl (test code = Chloride Lvl) 104 95-109 [facility]2018-11-08 10:50:01 Test Item Value Reference Range Interpretation Comments Potassium Lvl (test code = Potassium 4.2 3.5-5.1 Lvl) [facility]2018-11-08 10:50:01 Test Item Value Reference Range Interpretation Comments Sodium Lvl (test code = Sodium Lvl) 137 135-145 [facility]2018-11-08 10:50:01 Test Item Value Reference Range Interpretation Comments Creatinine Lvl (test code = Creatinine 0.85 0.50-1.40 Lvl) [facility]2018-11-08 10:50:01 Test Item Value Reference Range Interpretation Comments AGAP (test code = AGAP) 9.2 10.0-20.0 [facility] HospitalAqatvgzUAUAMGSZXK4878-57-54 10:50:01 Test Item Value Reference Range Interpretation Comments ACT (TEG) Rapid (test code = ACT (TEG) 136 s 86-118 Rapid) [facility] HospitalIgzaczqUIBAGVZRNH6169-73-78 10:50:01 Test Item Value Reference Range Interpretation Comments Split Point Rapid (test code = Split 0.6 min Point Rapid) [facility] HospitalPihqgmgUCBEXPRWQN6913-16-14 10:50:01 Test Item Value Reference Range Interpretation Comments R-time Rapid (test code = R-time 0.9 min 0.4-0.7 Rapid) [facility] HospitalBbxsnhlTVEPORFQQX4591-10-56 10:50:01 Test Item Value Reference Range Interpretation Comments K-time Rapid (test code = K-time 1.4 min 0.6-2.3 Rapid) [facility] HospitalWchetafDZRFVADIWM6970-16-03 10:50:01 Test Item Value Reference Range Interpretation Comments Angle Rapid (test code = Angle 71 degrees 64-80 Rapid) [facility] HospitalYcpfftbVQQJFYCDJD5164-22-39 10:50:01 Test Item Value Reference Range Interpretation Comments G-value Rapid (test code = G-value 12.7 5.0-11.6 Rapid) [facility] HospitalEwjnfpdFNRMAGSXUL0509-25-23 10:50:01 Test Item Value Reference Range Interpretation Comments Max Amplitude Rapid (test code = Max 72 mm 52-71 Amplitude Rapid) [facility] HospitalCtonslpFSFCIKDSAE5783-98-41 10:50:01 Test Item Value Reference Range Interpretation Comments Estimated % Lysis Rapid 0.1 See_Comment [Au tomated message] The (test code = Estimated syste m which generated % Lysis Rapid) this result t ransmitted reference range : <=7.5. The reference r boubacar was not used to int erpret this result as normal/abnormal . [facility] HospitalPkikymdZNKLIZCSPJ6422-71-48 10:50:01 Test Item Value Reference Range Interpretation Comments Platelet (test code = Platelet) 367 133-450 [facility] HospitalVmkizfpYCVENGKYAF9062-03-63 10:50:01 Test Item Value Reference Range Interpretation Comments MPV (test code = MPV) 7.8 7.4-10.4 [facility] HospitalRaaatftVXQXKQHNKH2673-29-72 10:50:01 Test Item Value Reference Range Interpretation Comments MCH (test code = MCH) 27.4 pg 27.0-31.0 [facility] HospitalPmwriliSPWZPDLBCB1256-58-67 10:50:01 Test Item Value Reference Range Interpretation Comments MCV (test code = MCV) 80.7 80.0-94.0 [facility] HospitalPlskgglFMVZRONPQQ0808-89-82 10:50:01 Test Item Value Reference Range Interpretation Comments MCHC (test code = MCHC) 34.0 32.0-36.0 [facility] HospitalLlxaawzLQSMHOLUEX4127-39-68 10:50:01 Test Item Value Reference Range Interpretation Comments RDW (test code = RDW) 18.9 11.5-14.5 [facility] HospitalMlcwlkcFQHMPRIBKR3331-55-58 10:50:01 Test Item Value Reference Range Interpretation Comments Hct (test code = Hct) 43.3 42.0-54.0 [facility] HospitalEkusbvePDVDXTZCCW0584-04-19 10:50:01 Test Item Value Reference Range Interpretation Comments WBC (test code = WBC) 9.3 3.7-10.4 [facility] HospitalMdslskpYAJCULOHHW6732-49-68 10:50:01 Test Item Value Reference Range Interpretation Comments Hgb (test code = Hgb) 14.7 14.0-18.0 [facility] HospitalQabugvsNOWAOQSCEX4685-41-37 10:50:01 Test Item Value Reference Range Interpretation Comments RBC (test code = RBC) 5.36 4.70-6.10 [facility] HospitalAqglegfKEJHAYZTJK4045-35-03 10:50:01 Test Item Value Reference Range Interpretation Comments Eosinophils # (test code 0.2 See_Comment [A utomated message] The = Eosinophils #) system whic h generated this result tra nsmitted reference range : <=0.5. The reference r boubacar was not used to int erpret this result as normal/abnormal . [facility] HospitalSthmzycCUXNSZOKDK2803-18-97 10:50:01 Test Item Value Reference Range Interpretation Comments Basophils # (test code 0.1 See_Comment [Aut omated message] The = Basophils #) system which generated this result tra nsmitted reference range : <=0.2. The reference r boubacar was not used to int erpret this result as normal/abnormal . [facility] HospitalUvogzeyJPGDKSGHUJ1716-10-03 10:50:01 Test Item Value Reference Range Interpretation Comments Lymphocytes # (test code = Lymphocytes 1.8 1.0-5.5 #) [facility] HospitalTfzdtduOUYMZBHKCQ8412-16-07 10:50:01 Test Item Value Reference Range Interpretation Comments Monocytes # (test code 0.9 See_Comment [Aut omated message] The = Monocytes #) system which generated this result tra nsmitted reference range : <=0.8. The reference r boubacar was not used to int erpret this result as normal/abnormal . [facility] HospitalZzfaxfdNFGKZFQJEM0235-74-40 10:50:01 Test Item Value Reference Range Interpretation Comments Neutrophils # (test code = Neutrophils 6.3 1.5-8.1 #) [facility] HospitalIivbdbaKSRHDCHLHU4612-99-98 10:50:01 Test Item Value Reference Range Interpretation Comments Eosinophils (test code = 2.0 See_Comment [A utomated message] The Eosinophils) system which ge nerated this result tra nsmitted reference range : <=4.0. The reference r boubacar was not used to int erpret this result as normal/abnormal . [facility] HospitalAarnfvbUSZEEUUFOI5744-99-91 10:50:01 Test Item Value Reference Range Interpretation Comments Segs (test code = Segs) 67.4 45.0-75.0 [facility] HospitalLhvlkxvBOPIXIYTSJ7218-12-98 10:50:01 Test Item Value Reference Range Interpretation Comments Lymphocytes (test code = Lymphocytes) 19.9 20.0-40.0 [facility] HospitalGnbsickBKKAFQOFVT4134-35-47 10:50:01 Test Item Value Reference Range Interpretation Comments Basophils (test code = 1.0 See_Comment [Aut omated message] The Basophils) system which ge nerated this result tra nsmitted reference range : <=1.0. The reference r boubacar was not used to int erpret this result as normal/abnormal . [facility] HospitalWcitsxuMXXOENBVZD0030-86-85 10:50:01 Test Item Value Reference Range Interpretation Comments Monocytes (test code = Monocytes) 9.7 2.0-12.0 [facility]2018-11-08 10:50:01 Test Item Value Reference Range Interpretation Comments eGFR (test code = eGFR) 133 [facility]2018-11-08 10:50:01 Test Item Value Reference Range Interpretation Comments Calcium Lvl (test code = Calcium Lvl) 9.4 8.5-10.5 [facility]2018-11-08 10:50:01 Test Item Value Reference Range Interpretation Comments CO2 (test code = CO2) 28 24-32 [facility]2018-11-08 10:50:01 Test Item Value Reference Range Interpretation Comments BUN (test code = BUN) 14 7-22 [facility]2018-11-08 10:50:01 Test Item Value Reference Range Interpretation Comments Glucose Lvl (test code = Glucose Lvl) 89 70-99 [facility]2018-11-08 10:50:01 Test Item Value Reference Range Interpretation Comments Chloride Lvl (test code = Chloride Lvl) 104 95-109 [facility]2018-05-08 05:42:00 Test Item Value Reference Range Interpretation Comments B/C Ratio (test code = B/C Ratio) 17 1 6-25 [facility]2018-05-08 05:42:00 Test Item Value Reference Range Interpretation Comments Globulin (test code = Globulin) 4.3 2.7-4.2 [facility]2018-05-08 05:42:00 Test Item Value Reference Range Interpretation Comments A/G Ratio (test code = A/G Ratio) 0.7 1 0.7-1.6 [facility]2018-05-08 05:42:00 Test Item Value Reference Range Interpretation Comments AGAP (test code = AGAP) 14.4 10.0-20.0 [facility]2018-05-08 05:42:00 Test Item Value Reference Range Interpretation Comments eGFR (test code = eGFR) 113 [facility]2018-05-08 05:42:00 Test Item Value Reference Range Interpretation Comments Alk Phos (test code = Alk Phos) 76 39-136 [facility]2018-05-08 05:42:00 Test Item Value Reference Range Interpretation Comments ALT (test code = ALT) 35 See_Comment [Auto mated message] The system which ge nerated this result transmit lester reference range : <=65. The reference range was not used to interpr et this result as dany l/abnormal. [facility]2018-05-08 05:42:00 Test Item Value Reference Range Interpretation Comments Albumin Lvl (test code = Albumin Lvl) 2.8 3.5-5.0 [facility]2018-05-08 05:42:00 Test Item Value Reference Range Interpretation Comments Total Protein (test code = Total 7.1 6.4-8.4 Protein) [facility]2018-05-08 05:42:00 Test Item Value Reference Range Interpretation Comments Calcium Lvl (test code = Calcium Lvl) 8.7 8.5-10.5 [facility]2018-05-08 05:42:00 Test Item Value Reference Range Interpretation Comments AST (test code = AST) 18 See_Comment [Auto mated message] The system which ge nerated this result transmit lester reference range : <=37. The reference range was not used to interpr et this result as dany l/abnormal. [facility]2018-05-08 05:42:00 Test Item Value Reference Range Interpretation Comments Bili Total (test code = Bili Total) 0.3 0.2-1.3 [place] 899318-05-08 05:42:00 Test Item Value Reference Range Interpretation Comments Potassium Lvl (test code = Potassium 4.4 3.5-5.1 Lvl) [facility]2018-05-08 05:42:00 Test Item Value Reference Range Interpretation Comments Chloride Lvl (test code = Chloride Lvl) 109 95-109 [facility]2018-05-08 05:42:00 Test Item Value Reference Range Interpretation Comments CO2 (test code = CO2) 23 24-32 [facility]2018-05-08 05:42:00 Test Item Value Reference Range Interpretation Comments Glucose Lvl (test code = Glucose Lvl) 114 70-99 [facility]2018-05-08 05:42:00 Test Item Value Reference Range Interpretation Comments Creatinine Lvl (test code = Creatinine 1.01 0.50-1.40 Lvl) [facility]2018-05-08 05:42:00 Test Item Value Reference Range Interpretation Comments BUN (test code = BUN) 17 7-22 [facility]2018-05-08 05:42:00 Test Item Value Reference Range Interpretation Comments Sodium Lvl (test code = Sodium Lvl) 142 135-145 [facility] HospitalKfkjdfcDHVBGNHTMM8161-27-66 05:42:00 Test Item Value Reference Range Interpretation Comments Basophils (test code = 0.6 See_Comment [Aut omated message] The Basophils) system which ge nerated this result tra nsmitted reference range : <=1.0. The reference r boubacar was not used to int erpret this result as normal/abnormal . [facility] HospitalGfhzdeyNBWHNFUGDX5440-51-30 05:42:00 Test Item Value Reference Range Interpretation Comments Segs-Bands # (test code = Segs-Bands #) 4.8 1.5-8.1 [facility] HospitalJmgsaotONQMAAHOYD1586-63-22 05:42:00 Test Item Value Reference Range Interpretation Comments Monocytes # (test code 0.7 See_Comment [Aut omated message] The = Monocytes #) system which generated this result tra nsmitted reference range : <=0.8. The reference r boubacar was not used to int erpret this result as normal/abnormal . [facility] HospitalYpjgojfVBFTLBCKQD5326-55-29 05:42:00 Test Item Value Reference Range Interpretation Comments Lymphocytes # (test code = Lymphocytes 1.9 1.0-5.5 #) [facility] HospitalZvvsiakGXZSGFIOWT3121-60-22 05:42:00 Test Item Value Reference Range Interpretation Comments Monocytes (test code = Monocytes) 9.4 2.0-12.0 [facility] HospitalYncumisDWVNKIWHDN7232-27-03 05:42:00 Test Item Value Reference Range Interpretation Comments Eosinophils # (test code 0.2 See_Comment [A utomated message] The = Eosinophils #) system whic h generated this result tra nsmitted reference range : <=0.5. The reference r boubacar was not used to int erpret this result as normal/abnormal . [facility] HospitalVzbtoyiJAETPTOMIL0069-85-38 05:42:00 Test Item Value Reference Range Interpretation Comments Eosinophils (test code = 2.9 See_Comment [A utomated message] The Eosinophils) system which ge nerated this result tra nsmitted reference range : <=4.0. The reference r boubacar was not used to int erpret this result as normal/abnormal . [facility] HospitalYprxqqrHQNRREICGF8291-55-47 05:42:00 Test Item Value Reference Range Interpretation Comments Segs (test code = Segs) 62.2 45.0-75.0 [facility] CenterGympexqVMCJTFTJQC2955-31-64 05:42:00 Test Item Value Reference Range Interpretation Comments Lymphocytes (test code = Lymphocytes) 24.9 20.0-40.0 [facility] CenterMwmqsqsZNAVNATJGO0847-02-40 05:42:00 Test Item Value Reference Range Interpretation Comments MCH (test code = MCH) 27.5 pg 27.0-31.0 [facility]qftrgcFIZZNYJQUV2007-86-98 05:42:00 Test Item Value Reference Range Interpretation Comments MCV (test code = MCV) 85.3 80.0-94.0 [facility] CenterWafmgoqCUQFIBCAIZ7470-96-45 05:42:00 Test Item Value Reference Range Interpretation Comments Hct (test code = Hct) 43.9 42.0-54.0 [facility] CenterPsousvgPRSDGIFRSR9058-21-32 05:42:00 Test Item Value Reference Range Interpretation Comments Hgb (test code = Hgb) 14.2 14.0-18.0 [facility]PuhpgpdFMNVRZGGCU2904-09-71 05:42:00 Test Item Value Reference Range Interpretation Comments WBC (test code = WBC) 7.7 3.7-10.4 [facility] CenterRehatnbPYQIOKCCSK0780-58-18 05:42:00 Test Item Value Reference Range Interpretation Comments RBC (test code = RBC) 5.15 4.70-6.10 [facility] CenterClkwieeQEEWGCXRML3315-92-91 05:42:00 Test Item Value Reference Range Interpretation Comments MPV (test code = MPV) 8.4 7.4-10.4 [facility]XcaoqnbNFKSNXHZPE1117-17-31 05:42:00 Test Item Value Reference Range Interpretation Comments MCHC (test code = MCHC) 32.3 32.0-36.0 [facility] CenterBtpkqfcAJAUGPPSSU5648-60-00 05:42:00 Test Item Value Reference Range Interpretation Comments RDW (test code = RDW) 17.3 11.5-14.5 [facility] CenterJunygfnXVSBGVSHSS6252-24-05 05:42:00 Test Item Value Reference Range Interpretation Comments Platelet (test code = Platelet) 317 133-450 [facility]2018-05-08 05:42:00 Test Item Value Reference Range Interpretation Comments B/C Ratio (test code = B/C Ratio) 17 1 6-25 [facility]2018-05-08 05:42:00 Test Item Value Reference Range Interpretation Comments Globulin (test code = Globulin) 4.3 2.7-4.2 [facility]2018-05-08 05:42:00 Test Item Value Reference Range Interpretation Comments A/G Ratio (test code = A/G Ratio) 0.7 1 0.7-1.6 [facility]2018-05-08 05:42:00 Test Item Value Reference Range Interpretation Comments AGAP (test code = AGAP) 14.4 10.0-20.0 [facility]2018-05-08 05:42:00 Test Item Value Reference Range Interpretation Comments eGFR (test code = eGFR) 113 [facility]2018-05-08 05:42:00 Test Item Value Reference Range Interpretation Comments Alk Phos (test code = Alk Phos) 76 39-136 [facility]2018-05-08 05:42:00 Test Item Value Reference Range Interpretation Comments ALT (test code = ALT) 35 See_Comment [Auto mated message] The system which ge nerated this result transmit lester reference range : <=65. The reference range was not used to interpr et this result as dany l/abnormal. [facility]2018-05-08 05:42:00 Test Item Value Reference Range Interpretation Comments Albumin Lvl (test code = Albumin Lvl) 2.8 3.5-5.0 [facility]2018-05-08 05:42:00 Test Item Value Reference Range Interpretation Comments Total Protein (test code = Total 7.1 6.4-8.4 Protein) [facility]2018-05-08 05:42:00 Test Item Value Reference Range Interpretation Comments Calcium Lvl (test code = Calcium Lvl) 8.7 8.5-10.5 [facility]2018-05-08 05:42:00 Test Item Value Reference Range Interpretation Comments AST (test code = AST) 18 See_Comment [Auto mated message] The system which ge nerated this result transmit lester reference range : <=37. The reference range was not used to interpr et this result as dany l/abnormal. [place] [id number] 05:42:00 Test Item Value Reference Range Interpretation Comments Bili Total (test code = Bili Total) 0.3 0.2-1.3 [facility]2018-05-08 05:42:00 Test Item Value Reference Range Interpretation Comments Potassium Lvl (test code = Potassium 4.4 3.5-5.1 Lvl) [facility]2018-05-08 05:42:00 Test Item Value Reference Range Interpretation Comments Chloride Lvl (test code = Chloride Lvl) 109 95-109 [facility]2018-05-08 05:42:00 Test Item Value Reference Range Interpretation Comments CO2 (test code = CO2) 23 24-32 [facility]2018-05-08 05:42:00 Test Item Value Reference Range Interpretation Comments Glucose Lvl (test code = Glucose Lvl) 114 70-99 [facility]2018-05-08 05:42:00 Test Item Value Reference Range Interpretation Comments Creatinine Lvl (test code = Creatinine 1.01 0.50-1.40 Lvl) [facility]2018-05-08 05:42:00 Test Item Value Reference Range Interpretation Comments BUN (test code = BUN) 17 7-22 [facility]2018-05-08 05:42:00 Test Item Value Reference Range Interpretation Comments Sodium Lvl (test code = Sodium Lvl) 142 135-145 [facility]BwsblpyDCLFBCIAKT0053-06-19 05:42:00 Test Item Value Reference Range Interpretation Comments Basophils (test code = 0.6 See_Comment [Aut omated message] The Basophils) system which ge nerated this result tra nsmitted reference range : <=1.0. The reference r boubacar was not used to int erpret this result as normal/abnormal . [facility] HospitalFsbvvrlBEXNLCTUYA2335-80-80 05:42:00 Test Item Value Reference Range Interpretation Comments Segs-Bands # (test code = Segs-Bands #) 4.8 1.5-8.1 [facility] HospitalLfyuswuPGVSOTPPJI9517-33-32 05:42:00 Test Item Value Reference Range Interpretation Comments Monocytes # (test code 0.7 See_Comment [Aut omated message] The = Monocytes #) system which generated this result tra nsmitted reference range : <=0.8. The reference r boubacar was not used to int erpret this result as normal/abnormal . [facility] HospitalAsxjtksKDWYPNCIDY9808-33-80 05:42:00 Test Item Value Reference Range Interpretation Comments Lymphocytes # (test code = Lymphocytes 1.9 1.0-5.5 #) [facility] HospitalXimsgycIVENPYAPJX9555-18-66 05:42:00 Test Item Value Reference Range Interpretation Comments Monocytes (test code = Monocytes) 9.4 2.0-12.0 [facility] HospitalEtqerkdHQSIHRLCFL3769-74-32 05:42:00 Test Item Value Reference Range Interpretation Comments Eosinophils # (test code 0.2 See_Comment [A utomated message] The = Eosinophils #) system whic h generated this result tra nsmitted reference range : <=0.5. The reference r boubacar was not used to int erpret this result as normal/abnormal . [facility] HospitalBclypgwKVCZWVQCQH6327-87-75 05:42:00 Test Item Value Reference Range Interpretation Comments Eosinophils (test code = 2.9 See_Comment [A utomated message] The Eosinophils) system which ge nerated this result tra nsmitted reference range : <=4.0. The reference r boubacar was not used to int erpret this result as normal/abnormal . [facility] HospitalCasipsgFJZRLSPCVB8657-03-24 05:42:00 Test Item Value Reference Range Interpretation Comments Segs (test code = Segs) 62.2 45.0-75.0 [facility] HospitalQxvnldmNQFABPGYTQ5745-27-84 05:42:00 Test Item Value Reference Range Interpretation Comments Lymphocytes (test code = Lymphocytes) 24.9 20.0-40.0 [facility] HospitalVyigppiMMNKGRESBB1761-17-12 05:42:00 Test Item Value Reference Range Interpretation Comments MCH (test code = MCH) 27.5 pg 27.0-31.0 [facility] HospitalLaewfqcZYANAHKIGY6625-27-44 05:42:00 Test Item Value Reference Range Interpretation Comments MCV (test code = MCV) 85.3 80.0-94.0 [facility] HospitalWcgmvehFWOITKFRZE2375-37-82 05:42:00 Test Item Value Reference Range Interpretation Comments Hct (test code = Hct) 43.9 42.0-54.0 [facility] HospitalXxsogpaJAOUHEWXZE1194-81-77 05:42:00 Test Item Value Reference Range Interpretation Comments Hgb (test code = Hgb) 14.2 14.0-18.0 [place] 756228-05-08 05:42:00 Test Item Value Reference Range Interpretation Comments WBC (test code = WBC) 7.7 3.7-10.4 [facility] HospitalKpsnggsRYUYKVQSGK9141-63-04 05:42:00 Test Item Value Reference Range Interpretation Comments RBC (test code = RBC) 5.15 4.70-6.10 [facility] HospitalAqfklbaBNCIDCDONY8985-94-87 05:42:00 Test Item Value Reference Range Interpretation Comments MPV (test code = MPV) 8.4 7.4-10.4 [place] [address]-05-08 05:42:00 Test Item Value Reference Range Interpretation Comments MCHC (test code = MCHC) 32.3 32.0-36.0 [facility] HospitalPnodzgtUVHDLSAKET0212-40-66 05:42:00 Test Item Value Reference Range Interpretation Comments RDW (test code = RDW) 17.3 11.5-14.5 [facility] HospitalZptddurNIKAHVPNMS7030-73-53 05:42:00 Test Item Value Reference Range Interpretation Comments Platelet (test code = Platelet) 317 133-450 [facility]2018-05-07 09:36:00 Test Item Value Reference Range Interpretation Comments Globulin (test code = Globulin) 4.4 2.7-4.2 [facility]2018-05-07 09:36:00 Test Item Value Reference Range Interpretation Comments A/G Ratio (test code = A/G Ratio) 0.6 1 0.7-1.6 [facility]2018-05-07 09:36:00 Test Item Value Reference Range Interpretation Comments B/C Ratio (test code = B/C Ratio) 17 1 6-25 [facility]2018-05-07 09:36:00 Test Item Value Reference Range Interpretation Comments AGAP (test code = AGAP) 11.3 10.0-20.0 [facility]2018-05-07 09:36:00 Test Item Value Reference Range Interpretation Comments eGFR (test code = eGFR) 134 [facility]2018-05-07 09:36:00 Test Item Value Reference Range Interpretation Comments Creatinine Lvl (test code = Creatinine 0.84 0.50-1.40 Lvl) [facility]2018-05-07 09:36:00 Test Item Value Reference Range Interpretation Comments Sodium Lvl (test code = Sodium Lvl) 142 135-145 [facility]2018-05-07 09:36:00 Test Item Value Reference Range Interpretation Comments Glucose Lvl (test code = Glucose Lvl) 99 70-99 [facility]2018-05-07 09:36:00 Test Item Value Reference Range Interpretation Comments BUN (test code = BUN) 14 7-22 [facility]2018-05-07 09:36:00 Test Item Value Reference Range Interpretation Comments Alk Phos (test code = Alk Phos) 79 39-136 [place] 899318-05-07 09:36:00 Test Item Value Reference Range Interpretation Comments Bili Total (test code = Bili Total) 0.3 0.2-1.3 [facility]2018-05-07 09:36:00 Test Item Value Reference Range Interpretation Comments AST (test code = AST) 14 See_Comment [Auto mated message] The system which ge nerated this result transmit lester reference range : <=37. The reference range was not used to interpr et this result as dany l/abnormal. [facility]2018-05-07 09:36:00 Test Item Value Reference Range Interpretation Comments ALT (test code = ALT) 43 See_Comment [Auto mated message] The system which ge nerated this result transmit lester reference range : <=65. The reference range was not used to interpr et this result as dany l/abnormal. [facility]2018-05-07 09:36:00 Test Item Value Reference Range Interpretation Comments Total Protein (test code = Total 7.1 6.4-8.4 Protein) [facility]2018-05-07 09:36:00 Test Item Value Reference Range Interpretation Comments Albumin Lvl (test code = Albumin Lvl) 2.7 3.5-5.0 [facility]2018-05-07 09:36:00 Test Item Value Reference Range Interpretation Comments Calcium Lvl (test code = Calcium Lvl) 9.2 8.5-10.5 [facility]2018-05-07 09:36:00 Test Item Value Reference Range Interpretation Comments CO2 (test code = CO2) 21 24-32 [place] 899318-05-07 09:36:00 Test Item Value Reference Range Interpretation Comments Potassium Lvl (test code = Potassium 4.3 3.5-5.1 Lvl) [facility]2018-05-07 09:36:00 Test Item Value Reference Range Interpretation Comments Chloride Lvl (test code = Chloride Lvl) 114 95-109 [facility] HospitalGsdqpbqEEMXPZNWBV6120-10-50 09:36:00 Test Item Value Reference Range Interpretation Comments MCHC (test code = MCHC) 32.5 32.0-36.0 [facility] HospitalKmibkbiCKLBLNYGJO7739-45-00 09:36:00 Test Item Value Reference Range Interpretation Comments RDW (test code = RDW) 17.5 11.5-14.5 [facility] HospitalZfluxbdQSEQIEIHFT6854-23-27 09:36:00 Test Item Value Reference Range Interpretation Comments Platelet (test code = Platelet) 400 133-450 [facility] HospitalThdcmdsODREBIJPJR2507-36-60 09:36:00 Test Item Value Reference Range Interpretation Comments MPV (test code = MPV) 8.5 7.4-10.4 [facility] HospitalTqmgrvzRGGXQBEDZJ9110-68-94 09:36:00 Test Item Value Reference Range Interpretation Comments WBC (test code = WBC) 6.6 3.7-10.4 [facility] HospitalEfgsmgwXPANAXJFYH9074-30-85 09:36:00 Test Item Value Reference Range Interpretation Comments RBC (test code = RBC) 5.17 4.70-6.10 [facility] HospitalIrcuctpCJUJAANXNK5942-45-70 09:36:00 Test Item Value Reference Range Interpretation Comments MCV (test code = MCV) 86.1 80.0-94.0 [facility] HospitalBcpjxpvEPXFEYSATO6725-59-11 09:36:00 Test Item Value Reference Range Interpretation Comments Hct (test code = Hct) 44.5 42.0-54.0 [facility] HospitalUrcecpeNOZCJSHVEF5120-84-72 09:36:00 Test Item Value Reference Range Interpretation Comments MCH (test code = MCH) 28.0 pg 27.0-31.0 [facility] HospitalNwnvnqzVQQEMMNOEB1504-18-77 09:36:00 Test Item Value Reference Range Interpretation Comments Hgb (test code = Hgb) 14.5 14.0-18.0 [facility] HospitalHjvcuapAHMHQSPJQD8623-28-09 09:36:00 Test Item Value Reference Range Interpretation Comments Lymphocytes # (test code = Lymphocytes 1.7 1.0-5.5 #) [facility] HospitalDybudecSOAJPFUJXX9932-12-26 09:36:00 Test Item Value Reference Range Interpretation Comments Monocytes # (test code 0.7 See_Comment [Aut omated message] The = Monocytes #) system which generated this result tra nsmitted reference range : <=0.8. The reference r boubacar was not used to int erpret this result as normal/abnormal . [facility] HospitalMprhctjXJZXWSSSTW1739-94-32 09:36:00 Test Item Value Reference Range Interpretation Comments Eosinophils # (test code 0.2 See_Comment [A utomated message] The = Eosinophils #) system whic h generated this result tra nsmitted reference range : <=0.5. The reference r boubacar was not used to int erpret this result as normal/abnormal . [facility] HospitalEmclsmrKKMKYIXBAX4192-16-36 09:36:00 Test Item Value Reference Range Interpretation Comments Lymphocytes (test code = Lymphocytes) 26.1 20.0-40.0 [facility] HospitalGfhzcnuUSMWSYJNSP0811-47-17 09:36:00 Test Item Value Reference Range Interpretation Comments Segs (test code = Segs) 59.3 45.0-75.0 [facility] HospitalKhjqybnYIILEPAECI1948-84-19 09:36:00 Test Item Value Reference Range Interpretation Comments Basophils (test code = 0.8 See_Comment [Aut omated message] The Basophils) system which ge nerated this result tra nsmitted reference range : <=1.0. The reference r boubacar was not used to int erpret this result as normal/abnormal . [facility] HospitalWnhfdhqYMDZYASHWG0074-81-64 09:36:00 Test Item Value Reference Range Interpretation Comments Monocytes (test code = Monocytes) 10.5 2.0-12.0 [facility] HospitalMwedhseOFXZFAJDPJ5201-89-41 09:36:00 Test Item Value Reference Range Interpretation Comments Eosinophils (test code = 3.3 See_Comment [A utomated message] The Eosinophils) system which ge nerated this result tra nsmitted reference range : <=4.0. The reference r boubacar was not used to int erpret this result as normal/abnormal . [facility] HospitalOdiduvgJLRIAKJBEH6310-28-13 09:36:00 Test Item Value Reference Range Interpretation Comments Segs-Bands # (test code = Segs-Bands #) 3.9 1.5-8.1 [facility]2018-05-07 09:36:00 Test Item Value Reference Range Interpretation Comments Globulin (test code = Globulin) 4.4 2.7-4.2 [facility]2018-05-07 09:36:00 Test Item Value Reference Range Interpretation Comments A/G Ratio (test code = A/G Ratio) 0.6 1 0.7-1.6 [place] 899318-05-07 09:36:00 Test Item Value Reference Range Interpretation Comments B/C Ratio (test code = B/C Ratio) 17 1 6-25 [place] 899318-05-07 09:36:00 Test Item Value Reference Range Interpretation Comments AGAP (test code = AGAP) 11.3 10.0-20.0 [place] 899318-05-07 09:36:00 Test Item Value Reference Range Interpretation Comments eGFR (test code = eGFR) 134 [facility]2018-05-07 09:36:00 Test Item Value Reference Range Interpretation Comments Creatinine Lvl (test code = Creatinine 0.84 0.50-1.40 Lvl) [facility]2018-05-07 09:36:00 Test Item Value Reference Range Interpretation Comments Sodium Lvl (test code = Sodium Lvl) 142 135-145 [facility]2018-05-07 09:36:00 Test Item Value Reference Range Interpretation Comments Glucose Lvl (test code = Glucose Lvl) 99 70-99 [facility]2018-05-07 09:36:00 Test Item Value Reference Range Interpretation Comments BUN (test code = BUN) 14 7-22 [facility]2018-05-07 09:36:00 Test Item Value Reference Range Interpretation Comments Alk Phos (test code = Alk Phos) 79 39-136 [facility]2018-05-07 09:36:00 Test Item Value Reference Range Interpretation Comments Bili Total (test code = Bili Total) 0.3 0.2-1.3 [place] 899318-05-07 09:36:00 Test Item Value Reference Range Interpretation Comments AST (test code = AST) 14 See_Comment [Auto mated message] The system which ge nerated this result transmit lester reference range : <=37. The reference range was not used to interpr et this result as dany l/abnormal. [facility]2018-05-07 09:36:00 Test Item Value Reference Range Interpretation Comments ALT (test code = ALT) 43 See_Comment [Auto mated message] The system which ge nerated this result transmit lester reference range : <=65. The reference range was not used to interpr et this result as dany l/abnormal. [facility]2018-05-07 09:36:00 Test Item Value Reference Range Interpretation Comments Total Protein (test code = Total 7.1 6.4-8.4 Protein) [facility]2018-05-07 09:36:00 Test Item Value Reference Range Interpretation Comments Albumin Lvl (test code = Albumin Lvl) 2.7 3.5-5.0 [place] 899318-05-07 09:36:00 Test Item Value Reference Range Interpretation Comments Calcium Lvl (test code = Calcium Lvl) 9.2 8.5-10.5 [place] 899318-05-07 09:36:00 Test Item Value Reference Range Interpretation Comments CO2 (test code = CO2) 21 24-32 [place] 899318-05-07 09:36:00 Test Item Value Reference Range Interpretation Comments Potassium Lvl (test code = Potassium 4.3 3.5-5.1 Lvl) [place] 899318-05-07 09:36:00 Test Item Value Reference Range Interpretation Comments Chloride Lvl (test code = Chloride Lvl) 114 95-109 [facility] HospitalBxaoqtoIHDGQYUHBY0722-79-74 09:36:00 Test Item Value Reference Range Interpretation Comments MCHC (test code = MCHC) 32.5 32.0-36.0 [facility] HospitalAdivplsVEDPDMYTXI2882-91-56 09:36:00 Test Item Value Reference Range Interpretation Comments RDW (test code = RDW) 17.5 11.5-14.5 [facility] HospitalEaktbyeUCQIMNDNOS1783-78-55 09:36:00 Test Item Value Reference Range Interpretation Comments Platelet (test code = Platelet) 400 133-450 [facility] HospitalFxkeexiNEASPPGVLE2803-09-93 09:36:00 Test Item Value Reference Range Interpretation Comments MPV (test code = MPV) 8.5 7.4-10.4 [facility] HospitalZjabpdzYQBSKRAZNG8882-18-47 09:36:00 Test Item Value Reference Range Interpretation Comments WBC (test code = WBC) 6.6 3.7-10.4 [facility] HospitalDftftscBCDMIZYTGY7684-26-09 09:36:00 Test Item Value Reference Range Interpretation Comments RBC (test code = RBC) 5.17 4.70-6.10 [facility] HospitalVrcldkwIXEKNTPKOS3877-01-54 09:36:00 Test Item Value Reference Range Interpretation Comments MCV (test code = MCV) 86.1 80.0-94.0 [facility] HospitalYtjcvssFPCNSBQAKF0404-72-84 09:36:00 Test Item Value Reference Range Interpretation Comments Hct (test code = Hct) 44.5 42.0-54.0 [facility] HospitalLuqpctiCDEDYODLWN7194-90-59 09:36:00 Test Item Value Reference Range Interpretation Comments MCH (test code = MCH) 28.0 pg 27.0-31.0 [facility] HospitalSrjwyxeWQFMVXJONA5794-89-73 09:36:00 Test Item Value Reference Range Interpretation Comments Hgb (test code = Hgb) 14.5 14.0-18.0 [facility] HospitalKnusbpsKNQHECGBSB6769-14-10 09:36:00 Test Item Value Reference Range Interpretation Comments Lymphocytes # (test code = Lymphocytes 1.7 1.0-5.5 #) [facility] HospitalIvfhlcoWKTVUIWKHC7575-17-67 09:36:00 Test Item Value Reference Range Interpretation Comments Monocytes # (test code 0.7 See_Comment [Aut omated message] The = Monocytes #) system which generated this result tra nsmitted reference range : <=0.8. The reference r boubacar was not used to int erpret this result as normal/abnormal . [facility] HospitalKqrjnhaPZBVWDEYSI2603-59-21 09:36:00 Test Item Value Reference Range Interpretation Comments Eosinophils # (test code 0.2 See_Comment [A utomated message] The = Eosinophils #) system whic h generated this result tra nsmitted reference range : <=0.5. The reference r boubacar was not used to int erpret this result as normal/abnormal . [facility] HospitalBpbkcwbCHKTXLFFGI7482-28-96 09:36:00 Test Item Value Reference Range Interpretation Comments Lymphocytes (test code = Lymphocytes) 26.1 20.0-40.0 [place] 756228-05-07 09:36:00 Test Item Value Reference Range Interpretation Comments Segs (test code = Segs) 59.3 45.0-75.0 [facility] HospitalAshapciJAAROQCQGG8742-48-40 09:36:00 Test Item Value Reference Range Interpretation Comments Basophils (test code = 0.8 See_Comment [Aut omated message] The Basophils) system which ge nerated this result tra nsmitted reference range : <=1.0. The reference r boubacar was not used to int erpret this result as normal/abnormal . [facility] HospitalCwqeczxEDZMLWMRIG5153-42-92 09:36:00 Test Item Value Reference Range Interpretation Comments Monocytes (test code = Monocytes) 10.5 2.0-12.0 [facility] HospitalFjjwmfjJTDEDCUWPJ8030-24-31 09:36:00 Test Item Value Reference Range Interpretation Comments Eosinophils (test code = 3.3 See_Comment [A utomated message] The Eosinophils) system which ge nerated this result tra nsmitted reference range : <=4.0. The reference r boubacar was not used to int erpret this result as normal/abnormal . [facility] HospitalNqiadocBHVJIKIFVE9313-68-00 09:36:00 Test Item Value Reference Range Interpretation Comments Segs-Bands # (test code = Segs-Bands #) 3.9 1.5-8.1 [place] [id number] 21:02:00 Test Item Value Reference Range Interpretation Comments Vanco Tr TND (test code = Vanco Tr 15:30pm TND) [place] [id number] 21:02:00 Test Item Value Reference Range Interpretation Comments Vanco Tr (test code = Vanco Tr) 9.1 [facility] CenterChdalvjYMXODHXLCN4320-57-62 21:02:00 Test Item Value Reference Range Interpretation Comments Vanco Tr TND (test code = Vanco Tr 15:30pm TND) [place] [id number] 21:02:00 Test Item Value Reference Range Interpretation Comments Vanco Tr (test code = Vanco Tr) 9.1 [facility] UURDZ4542-47-62 07:07:00 Test Item Value Reference Range Interpretation Comments Glucose Lvl (test code = Glucose Lvl) 74 70-99 [place] 899318-05-06 07:07:00 Test Item Value Reference Range Interpretation Comments BUN (test code = BUN) 12 7-22 [place] 899318-05-06 07:07:00 Test Item Value Reference Range Interpretation Comments Creatinine Lvl (test code = Creatinine 0.75 0.50-1.40 Lvl) [place] 899318-05-06 07:07:00 Test Item Value Reference Range Interpretation Comments eGFR (test code = eGFR) 140 [place] [id number] 07:07:00 Test Item Value Reference Range Interpretation Comments Albumin Lvl (test code = Albumin Lvl) 2.9 3.5-5.0 [place] [address]-05-06 07:07:00 Test Item Value Reference Range Interpretation Comments Globulin (test code = Globulin) 4.4 2.7-4.2 [place] [address]-05-06 07:07:00 Test Item Value Reference Range Interpretation Comments A/G Ratio (test code = A/G Ratio) 0.7 1 0.7-1.6 [place] [address]-05-06 07:07:00 Test Item Value Reference Range Interpretation Comments Bili Total (test code = Bili Total) 0.4 0.2-1.3 [place] [address]-05-06 07:07:00 Test Item Value Reference Range Interpretation Comments Alk Phos (test code = Alk Phos) 71 39-136 [place] 899318-05-06 07:07:00 Test Item Value Reference Range Interpretation Comments AST (test code = AST) 15 See_Comment [Auto mated message] The system which ge nerated this result transmit lester reference range : <=37. The reference range was not used to interpr et this result as dany l/abnormal. [place] 899318-05-06 07:07:00 Test Item Value Reference Range Interpretation Comments ALT (test code = ALT) 28 See_Comment [Auto mated message] The system which ge nerated this result transmit lester reference range : <=65. The reference range was not used to interpr et this result as dany l/abnormal. [place] 899318-05-06 07:07:00 Test Item Value Reference Range Interpretation Comments Potassium Lvl (test code = Potassium 4.4 3.5-5.1 Lvl) [facility]2018-05-06 07:07:00 Test Item Value Reference Range Interpretation Comments Sodium Lvl (test code = Sodium Lvl) 147 135-145 [facility]2018-05-06 07:07:00 Test Item Value Reference Range Interpretation Comments CO2 (test code = CO2) 25 24-32 [facility]2018-05-06 07:07:00 Test Item Value Reference Range Interpretation Comments Chloride Lvl (test code = Chloride Lvl) 114 95-109 [place] 899318-05-06 07:07:00 Test Item Value Reference Range Interpretation Comments B/C Ratio (test code = B/C Ratio) 16 1 6-25 [place] 899318-05-06 07:07:00 Test Item Value Reference Range Interpretation Comments Calcium Lvl (test code = Calcium Lvl) 8.7 8.5-10.5 [facility]2018-05-06 07:07:00 Test Item Value Reference Range Interpretation Comments AGAP (test code = AGAP) 12.4 10.0-20.0 [facility]2018-05-06 07:07:00 Test Item Value Reference Range Interpretation Comments Total Protein (test code = Total 7.3 6.4-8.4 Protein) [facility]uboADDPBLORJI9124[facility] Test Item Value Reference Range Interpretation Comments Platelet (test code = Platelet) 345 133-450 [facility] HospitalEhoyfakXOOCSRNUPI9525-19-17 07:07:00 Test Item Value Reference Range Interpretation Comments MPV (test code = MPV) 8.7 7.4-10.4 [facility] HospitalEwsraruEROSEWEXCD6879-89-89 07:07:00 Test Item Value Reference Range Interpretation Comments WBC (test code = WBC) 6.9 3.7-10.4 [facility] HospitalFbgaoriJXTBGXZPOL7387-50-48 07:07:00 Test Item Value Reference Range Interpretation Comments RBC (test code = RBC) 5.30 4.70-6.10 [facility] HospitalNynghpzOGCSFKVTKU1200-56-91 07:07:00 Test Item Value Reference Range Interpretation Comments MCHC (test code = MCHC) 32.8 32.0-36.0 [place] 756228-05-06 07:07:00 Test Item Value Reference Range Interpretation Comments MCH (test code = MCH) 27.9 pg 27.0-31.0 [facility] HospitalLthhthlKUYUYSMPMH2090-48-32 07:07:00 Test Item Value Reference Range Interpretation Comments Hgb (test code = Hgb) 14.8 14.0-18.0 [facility] HospitalEdycosoKTJBVSALTB9374-70-42 07:07:00 Test Item Value Reference Range Interpretation Comments MCV (test code = MCV) 85.0 80.0-94.0 [facility] HospitalDpvqpnhUAMTKLWSFR5479-37-48 07:07:00 Test Item Value Reference Range Interpretation Comments Hct (test code = Hct) 45.1 42.0-54.0 [facility] HospitalZinjfeaVOIIOTVMHT5636-77-23 07:07:00 Test Item Value Reference Range Interpretation Comments RDW (test code = RDW) 17.5 11.5-14.5 [facility] HospitalVkhrgpeIHGEJUEIKO2326-27-84 07:07:00 Test Item Value Reference Range Interpretation Comments Eosinophils # (test code 0.2 See_Comment [A utomated message] The = Eosinophils #) system whic h generated this result tra nsmitted reference range : <=0.5. The reference r boubacar was not used to int erpret this result as normal/abnormal . [facility] HospitalMpsqwsqWYJSQQGNKJ0459-96-28 07:07:00 Test Item Value Reference Range Interpretation Comments Lymphocytes # (test code = Lymphocytes 2.0 1.0-5.5 #) [facility] HospitalKyhglcqFTPTDBEMGO4203-57-12 07:07:00 Test Item Value Reference Range Interpretation Comments Monocytes # (test code 0.7 See_Comment [Aut omated message] The = Monocytes #) system which generated this result tra nsmitted reference range : <=0.8. The reference r boubacar was not used to int erpret this result as normal/abnormal . [facility] HospitalMtjsnouJTRXCCQOBY5345-16-28 07:07:00 Test Item Value Reference Range Interpretation Comments Eosinophils (test code = 2.4 See_Comment [A utomated message] The Eosinophils) system which ge nerated this result tra nsmitted reference range : <=4.0. The reference r boubacar was not used to int erpret this result as normal/abnormal . [facility] HospitalKmvqosaAKHEHCHOCC6228-76-33 07:07:00 Test Item Value Reference Range Interpretation Comments Basophils (test code = 0.6 See_Comment [Aut omated message] The Basophils) system which ge nerated this result tra nsmitted reference range : <=1.0. The reference r boubacar was not used to int erpret this result as normal/abnormal . [facility] HospitalVtkpkprOKKQTWQZWO8136-34-54 07:07:00 Test Item Value Reference Range Interpretation Comments Segs-Bands # (test code = Segs-Bands #) 4.0 1.5-8.1 [facility] HospitalVjkhkhrMXUSBENFXU5691-71-20 07:07:00 Test Item Value Reference Range Interpretation Comments Monocytes (test code = Monocytes) 10.4 2.0-12.0 [facility] HospitalPyvbmkuRTOOMVATSV8237-72-10 07:07:00 Test Item Value Reference Range Interpretation Comments RBC Morph (test code = Normal (11/17/17 2:07 AM) RBC Morph) [facility] HospitalAfjkmaxTCSSMYYIEN4576-85-91 07:07:00 Test Item Value Reference Range Interpretation Comments Segs (test code = Segs) 58.1 45.0-75.0 [facility] HospitalRurgcnePRFMFMKSKA1670-54-47 07:07:00 Test Item Value Reference Range Interpretation Comments Plt Morph (test code = Normal (11/17/17 2:07 AM) Plt Morph) [facility] HospitalQwtbiusXWFCOEEUKX7151-28-29 07:07:00 Test Item Value Reference Range Interpretation Comments Lymphocytes (test code = Lymphocytes) 28.5 20.0-40.0 [facility]2018-05-06 07:07:00 Test Item Value Reference Range Interpretation Comments Glucose Lvl (test code = Glucose Lvl) 74 70-99 [facility]2018-05-06 07:07:00 Test Item Value Reference Range Interpretation Comments BUN (test code = BUN) 12 7-22 [facility]2018-05-06 07:07:00 Test Item Value Reference Range Interpretation Comments Creatinine Lvl (test code = Creatinine 0.75 0.50-1.40 Lvl) [facility]2018-05-06 07:07:00 Test Item Value Reference Range Interpretation Comments eGFR (test code = eGFR) 140 [facility]2018-05-06 07:07:00 Test Item Value Reference Range Interpretation Comments Albumin Lvl (test code = Albumin Lvl) 2.9 3.5-5.0 [facility]2018-05-06 07:07:00 Test Item Value Reference Range Interpretation Comments Globulin (test code = Globulin) 4.4 2.7-4.2 [facility]2018-05-06 07:07:00 Test Item Value Reference Range Interpretation Comments A/G Ratio (test code = A/G Ratio) 0.7 1 0.7-1.6 [place] 899318-05-06 07:07:00 Test Item Value Reference Range Interpretation Comments Bili Total (test code = Bili Total) 0.4 0.2-1.3 [place] 899318-05-06 07:07:00 Test Item Value Reference Range Interpretation Comments Alk Phos (test code = Alk Phos) 71 39-136 [place] 899318-05-06 07:07:00 Test Item Value Reference Range Interpretation Comments AST (test code = AST) 15 See_Comment [Auto mated message] The system which ge nerated this result transmit lester reference range : <=37. The reference range was not used to interpr et this result as dany l/abnormal. [facility]2018-05-06 07:07:00 Test Item Value Reference Range Interpretation Comments ALT (test code = ALT) 28 See_Comment [Auto mated message] The system which ge nerated this result transmit lester reference range : <=65. The reference range was not used to interpr et this result as dany l/abnormal. [facility]2018-05-06 07:07:00 Test Item Value Reference Range Interpretation Comments Potassium Lvl (test code = Potassium 4.4 3.5-5.1 Lvl) [facility]2018-05-06 07:07:00 Test Item Value Reference Range Interpretation Comments Sodium Lvl (test code = Sodium Lvl) 147 135-145 [place] 899318-05-06 07:07:00 Test Item Value Reference Range Interpretation Comments CO2 (test code = CO2) 25 24-32 [place] 899318-05-06 07:07:00 Test Item Value Reference Range Interpretation Comments Chloride Lvl (test code = Chloride Lvl) 114 95-109 [place] 899318-05-06 07:07:00 Test Item Value Reference Range Interpretation Comments B/C Ratio (test code = B/C Ratio) 16 1 6-25 [facility]2018-05-06 07:07:00 Test Item Value Reference Range Interpretation Comments Calcium Lvl (test code = Calcium Lvl) 8.7 8.5-10.5 [facility]2018-05-06 07:07:00 Test Item Value Reference Range Interpretation Comments AGAP (test code = AGAP) 12.4 10.0-20.0 [facility]2018-05-06 07:07:00 Test Item Value Reference Range Interpretation Comments Total Protein (test code = Total 7.3 6.4-8.4 Protein) [facility] HospitalCowacglIVMOZGQQZN9721-32-69 07:07:00 Test Item Value Reference Range Interpretation Comments Platelet (test code = Platelet) 345 133450 [facility] HospitalFoopllnAGEZEBAOSO9924-70-81 07:07:00 Test Item Value Reference Range Interpretation Comments MPV (test code = MPV) 8.7 7.4-10.4 [facility] HospitalEzsxvliMBZDZBZNWL4074-71-66 07:07:00 Test Item Value Reference Range Interpretation Comments WBC (test code = WBC) 6.9 3.7-10.4 [facility] HospitalJlmirhjVBHWAIQILU6454-97-84 07:07:00 Test Item Value Reference Range Interpretation Comments RBC (test code = RBC) 5.30 4.70-6.10 [facility] HospitalJviunbaPNGYDMPXHL6000-94-04 07:07:00 Test Item Value Reference Range Interpretation Comments MCHC (test code = MCHC) 32.8 32.0-36.0 [facility] HospitalCapzfmeIQSTXTGRNM3109-88-62 07:07:00 Test Item Value Reference Range Interpretation Comments MCH (test code = MCH) 27.9 pg 27.0-31.0 [facility] HospitalEfcgrngWXBBXQIIPF3195-98-72 07:07:00 Test Item Value Reference Range Interpretation Comments Hgb (test code = Hgb) 14.8 14.0-18.0 [facility] HospitalXexsvvhNEDLDKCIFR3047-54-35 07:07:00 Test Item Value Reference Range Interpretation Comments MCV (test code = MCV) 85.0 80.0-94.0 [place] 756228-05-06 07:07:00 Test Item Value Reference Range Interpretation Comments Hct (test code = Hct) 45.1 42.0-54.0 [facility] HospitalHgctjkkWQOOZGNPBV6901-34-16 07:07:00 Test Item Value Reference Range Interpretation Comments RDW (test code = RDW) 17.5 11.5-14.5 [facility] HospitalTkfamitQYGDIPPVKD8513-99-80 07:07:00 Test Item Value Reference Range Interpretation Comments Eosinophils # (test code 0.2 See_Comment [A utomated message] The = Eosinophils #) system whic h generated this result tra nsmitted reference range : <=0.5. The reference r boubacar was not used to int erpret this result as normal/abnormal . [facility] HospitalNcqenxrKJRRZLLRZD6134-19-64 07:07:00 Test Item Value Reference Range Interpretation Comments Lymphocytes # (test code = Lymphocytes 2.0 1.0-5.5 #) [facility] HospitalWxwzkslRYEZPKOTNJ3369-49-72 07:07:00 Test Item Value Reference Range Interpretation Comments Monocytes # (test code 0.7 See_Comment [Aut omated message] The = Monocytes #) system which generated this result tra nsmitted reference range : <=0.8. The reference r boubacar was not used to int erpret this result as normal/abnormal . [facility] HospitalYhysbzvOJUPPAHXXA5469-60-75 07:07:00 Test Item Value Reference Range Interpretation Comments Eosinophils (test code = 2.4 See_Comment [A utomated message] The Eosinophils) system which ge nerated this result tra nsmitted reference range : <=4.0. The reference r boubacar was not used to int erpret this result as normal/abnormal . [facility] HospitalZlyeugsYJSAGONBYQ3843-82-59 07:07:00 Test Item Value Reference Range Interpretation Comments Basophils (test code = 0.6 See_Comment [Aut omated message] The Basophils) system which ge nerated this result tra nsmitted reference range : <=1.0. The reference r boubacar was not used to int erpret this result as normal/abnormal . [facility] HospitalQslpabbAQIELQHRLU1740-23-66 07:07:00 Test Item Value Reference Range Interpretation Comments Segs-Bands # (test code = Segs-Bands #) 4.0 1.5-8.1 [facility] HospitalQovmqayIZTCCZAKMN9505-98-68 07:07:00 Test Item Value Reference Range Interpretation Comments Monocytes (test code = Monocytes) 10.4 2.0-12.0 [facility] HospitalQahagmqOEFFQSAOJK8368-53-19 07:07:00 Test Item Value Reference Range Interpretation Comments RBC Morph (test code = Normal (11/17/17 2:07 AM) RBC Morph) [facility] HospitalIafjnvbPBZJWKDVYS3597-99-51 07:07:00 Test Item Value Reference Range Interpretation Comments Segs (test code = Segs) 58.1 45.0-75.0 [facility] HospitalNoijpyuBEGMEEFMMF1946-52-17 07:07:00 Test Item Value Reference Range Interpretation Comments Plt Morph (test code = Normal (11/17/17 2:07 AM) Plt Morph) [facility] HospitalOpcapyuDRYBAGMZYY0151-55-93 07:07:00 Test Item Value Reference Range Interpretation Comments Lymphocytes (test code = Lymphocytes) 28.5 20.0-40.0 [facility] HospitalQgphvfzPMHIHJNJWH3707-03-79 16:07:00 Test Item Value Reference Range Interpretation Comments Basophils # (test code 0.1 See_Comment [Aut omated message] The = Basophils #) system which generated this result tra nsmitted reference range : <=0.2. The reference r boubacar was not used to int erpret this result as normal/abnormal . [facility] HospitalXwtselvOEWCULXIJH6033-69-31 16:07:00 Test Item Value Reference Range Interpretation Comments Polychrom (test code = Moderate *ABN*(11/16/17 Polychrom) 11:07 AM) [facility] HospitalZbgxclxZAEUKQKNMI6991-47-75 16:07:00 Test Item Value Reference Range Interpretation Comments Basophils # (test code 0.1 See_Comment [Aut omated message] The = Basophils #) system which generated this result tra nsmitted reference range : <=0.2. The reference r boubacar was not used to int erpret this result as normal/abnormal . [facility] HospitalKlovccoWXGDVVMTXZ8223-19-45 16:07:00 Test Item Value Reference Range Interpretation Comments Polychrom (test code = Moderate *ABN*(11/16/17 Polychrom) 11:07 AM) [place] 31634018-05-05 06:43:00 Test Item Value Reference Range Interpretation Comments Vanco Tr TND (test code = Vanco Tr TND) * [place] 31634018-05-05 06:43:00 Test Item Value Reference Range Interpretation Comments Vanco Tr (test code = Vanco Tr) 22.3 [place] 31634018-05-05 06:43:00 Test Item Value Reference Range Interpretation Comments Vanco Tr TND (test code = Vanco Tr TND) * [place] 31634018-05-05 06:43:00 Test Item Value Reference Range Interpretation Comments Edwino Tr (test code = Vanco Tr) 22.3 [facility]2018-05-04 11:45:00 Test Item Value Reference Range Interpretation Comments Magnesium Lvl (test code = Magnesium 2.3 1.8-2.4 Lvl) [facility]2018-05-04 11:45:00 Test Item Value Reference Range Interpretation Comments Phosphorus (test code = Phosphorus) 3.5 2.5-4.5 [facility] HospitalHsrxxrpICXUGQZVHO1169-77-65 11:45:00 Test Item Value Reference Range Interpretation Comments PT (test code = PT) 14.0 s 12.0-14.7 [facility] HospitalChahyopTHPYGGBQVN7580-14-88 11:45:00 Test Item Value Reference Range Interpretation Comments PTT (test code = PTT) 37.6 s 22.9-35.8 [facility] HospitalAelrbejQOKVLKNSOF3529-53-22 11:45:00 Test Item Value Reference Range Interpretation Comments INR (test code = INR) 1.08 1 0.85-1.17 [facility]XuxlkyoBSQEDYQYYM9171-75-04 11:45:00 Test Item Value Reference Range Interpretation Comments C-REACTIVE PROTEIN (test code = 13.1 C-REACTIVE PROTEIN) [facility] HospitalAxhrhmxNCRBHRFFRS6729-00-52 11:45:00 Test Item Value Reference Range Interpretation Comments Prealbumin (test code = Prealbumin) 25.2 18.0-45.0 [facility]2018-05-04 11:45:00 Test Item Value Reference Range Interpretation Comments Magnesium Lvl (test code = Magnesium 2.3 1.8-2.4 Lvl) [facility]2018-05-04 11:45:00 Test Item Value Reference Range Interpretation Comments Phosphorus (test code = Phosphorus) 3.5 2.5-4.5 [facility] HospitalTtmwpanXATGWLSJRI5919-99-37 11:45:00 Test Item Value Reference Range Interpretation Comments PT (test code = PT) 14.0 s 12.0-14.7 [facility] HospitalDbapcimELUTGGYBDF6299-22-63 11:45:00 Test Item Value Reference Range Interpretation Comments PTT (test code = PTT) 37.6 s 22.9-35.8 [facility] HospitalDafbeeiOLEISCUPBZ4294-97-93 11:45:00 Test Item Value Reference Range Interpretation Comments INR (test code = INR) 1.08 1 0.85-1.17 [facility] HospitalXkbrbrkOFYTNFFAOK8384-56-45 11:45:00 Test Item Value Reference Range Interpretation Comments C-REACTIVE PROTEIN (test code = 13.1 C-REACTIVE PROTEIN) [facility] HospitalIwxbmphDYGUKYIUTW9452-31-51 11:45:00 Test Item Value Reference Range Interpretation Comments Prealbumin (test code = Prealbumin) 25.2 18.0-45.0 [facility]2018-05-04 03:06:00 Test Item Value Reference Range Interpretation Comments Lactic Acid Lvl (test code = Lactic 0.9 0.5-2.2 Acid Lvl) [facility] HospitalYldllzlZGTPBOQFWY5600-30-05 03:06:00 Test Item Value Reference Range Interpretation Comments Sed Rate (test code = 5 See_Comment [Auto mated message] The Sed Rate) system which ge nerated this result transmit lester reference range : <=15. The reference range was not used to interpr et this result as dany l/abnormal. [facility] HospitalYywekelQIWSFWTFHW4661-27-01 03:06:00 Test Item Value Reference Range Interpretation Comments C-REACTIVE PROTEIN (test code = 15.8 C-REACTIVE PROTEIN) [facility]2018-05-04 03:06:00 Test Item Value Reference Range Interpretation Comments Lactic Acid Lvl (test code = Lactic 0.9 0.5-2.2 Acid Lvl) [facility] HospitalCaxranpYATJGTQBFR7801-56-21 03:06:00 Test Item Value Reference Range Interpretation Comments Sed Rate (test code = 5 See_Comment [Auto mated message] The Sed Rate) system which ge nerated this result transmit lester reference range : <=15. The reference range was not used to interpr et this result as dany l/abnormal. [facility] HospitalFnknhmnNFCGNVRBAK9113-45-52 03:06:00 Test Item Value Reference Range Interpretation Comments C-REACTIVE PROTEIN (test code = 15.8 C-REACTIVE PROTEIN) [facility] HospitalZcwccrtWREKSALQDX6844-06-74 00:44:00 Test Item Value Reference Range Interpretation Comments PT (test code = PT) 13.0 s 12.0-14.7 [facility] HospitalKvvjvtsWHZLJEEBNT8657-75-94 00:44:00 Test Item Value Reference Range Interpretation Comments INR (test code = INR) 0.98 1 0.85-1.17 [facility] HospitalYphjlfvNXKCPOHBVY0412-97-78 00:44:00 Test Item Value Reference Range Interpretation Comments PTT (test code = PTT) 33.2 s 22.9-35.8 [facility] HospitalKvzzzxqWLMTQLQEJF2953-36-44 00:44:00 Test Item Value Reference Range Interpretation Comments PT (test code = PT) 13.0 s 12.0-14.7 [facility] HospitalBpsprqjXXLRKUFRGA4367-03-26 00:44:00 Test Item Value Reference Range Interpretation Comments INR (test code = INR) 0.98 1 0.85-1.17 [facility] HospitalWynyxhyGKZFYEMIBR7330-12-39 00:44:00 Test Item Value Reference Range Interpretation Comments PTT (test code = PTT) 33.2 s 22.9-35.8 [facility] WGAGVJX7801-10-69 23:51:00 Test Item Value Reference Range Interpretation Comments Antibody Scrn (test Negative (11/14/17 6:51 code = Antibody Scrn) PM) [facility] [id number] 23:51:00 Test Item Value Reference Range Interpretation Comments ABO/Rh (test code = ABO/Rh) AB POS [facility] [id number] 23:51:00 Test Item Value Reference Range Interpretation Comments Antibody Scrn (test Negative (11/14/17 6:51 code = Antibody Scrn) PM) [facility] [employer] [id number] 23:51:00 Test Item Value Reference Range Interpretation Comments ABO/Rh (test code = ABO/Rh) AB POS [facility] AND [id number] 23:35:00 Test Item Value Reference Range Interpretation Comments UA Urobilinogen (test code = UA 0.2 0.1-1.0 Urobilinogen) [facility] AND [id number] 23:35:00 Test Item Value Reference Range Interpretation Comments UA Nitrite (test code Negative (11/14/17 6:35 = UA Nitrite) PM) [facility] AND [id number] 23:35:00 Test Item Value Reference Range Interpretation Comments UA Glucose (test code Negative (11/14/17 6:35 = UA Glucose) PM) [facility] AND [id number] 23:35:00 Test Item Value Reference Range Interpretation Comments UA Ketones (test code Negative *NA*(11/14/17 = UA Ketones) 6:35 PM) [facility] AND [id number] 23:35:00 Test Item Value Reference Range Interpretation Comments UA Bili (test code = Negative *NA*(11/14/17 UA Bili) 6:35 PM) [facility] AND [id number] 23:35:00 Test Item Value Reference Range Interpretation Comments UA Blood (test code = Trace *ABN*(11/14/17 UA Blood) 6:35 PM) [facility] AND [id number] 23:35:00 Test Item Value Reference Range Interpretation Comments UA Leuk Est (test code Small *ABN*(11/14/17 6:35 = UA Leuk Est) PM) [facility] AND [id number] 23:35:00 Test Item Value Reference Range Interpretation Comments UA Spec Grav (test code = UA Spec 1.020 1 Grav) [facility] AND [id number] 23:35:00 Test Item Value Reference Range Interpretation Comments UA pH (test code = UA pH) 6.0 1 5.0-8.0 [facility] AND [id number] 23:35:00 Test Item Value Reference Range Interpretation Comments UA Color (test code = Yellow *NA*(11/14/17 6:35 UA Color) PM) [facility] AND [id number] 23:35:00 Test Item Value Reference Range Interpretation Comments UA Protein (test code = Trace *ABN*(11/14/17 UA Protein) 6:35 PM) [facility] AND [id number] 23:35:00 Test Item Value Reference Range Interpretation Comments UA Turbidity (test code Slight Cloudy (11/14/17 = UA Turbidity) 6:35 PM) [facility] AND [id number] 23:35:00 Test Item Value Reference Range Interpretation Comments UA Hyal Cast 0-2 (11/14/17 6:35 See_Comment [Automated message] (test code = UA PM) The system w lucas Hyal Cast) generated this result transmitted ref erence range: <=2. The reference range was not used to int erpret this result as normal/abnormal . [facility] AND [id number] 23:35:00 Test Item Value Reference Range Interpretation Comments UA Bacteria (test code = UA Occasional /HPF Bacteria) [facility] AND [id number] 23:35:00 Test Item Value Reference Range Interpretation Comments UA RBC (test code 11-20 /HPF See_Comment [Automate d message] The = UA RBC) system which ge nerated this result tra nsmitted reference range : <=2. The reference range was not used to interpr et this result as normal/abnormal . [facility] AND [id number] 23:35:00 Test Item Value Reference Range Interpretation Comments UA Sq Epi (test code = UA Sq Occasional /LPF Epi) [facility] AND [id number] 23:35:00 Test Item Value Reference Range Interpretation Comments UA WBC (test code = UA WBC) 51-100 /HPF [facility] AND [id number] 23:35:00 Test Item Value Reference Range Interpretation Comments UA Urobilinogen (test code = UA 0.2 0.1-1.0 Urobilinogen) [facility] AND [id number] 23:35:00 Test Item Value Reference Range Interpretation Comments UA Nitrite (test code Negative (11/14/17 6:35 = UA Nitrite) PM) [facility] AND [id number] 23:35:00 Test Item Value Reference Range Interpretation Comments UA Glucose (test code Negative (11/14/17 6:35 = UA Glucose) PM) [facility] AND [id number] 23:35:00 Test Item Value Reference Range Interpretation Comments UA Ketones (test code Negative *NA*(11/14/17 = UA Ketones) 6:35 PM) [facility] AND [id number] 23:35:00 Test Item Value Reference Range Interpretation Comments UA Bili (test code = Negative *NA*(11/14/17 UA Bili) 6:35 PM) [facility] AND [id number] 23:35:00 Test Item Value Reference Range Interpretation Comments UA Blood (test code = Trace *ABN*(11/14/17 UA Blood) 6:35 PM) [facility] AND [id number] 23:35:00 Test Item Value Reference Range Interpretation Comments UA Leuk Est (test code Small *ABN*(11/14/17 6:35 = UA Leuk Est) PM) [facility] AND [id number] 23:35:00 Test Item Value Reference Range Interpretation Comments UA Spec Grav (test code = UA Spec 1.020 1 Grav) [facility] AND [id number] 23:35:00 Test Item Value Reference Range Interpretation Comments UA pH (test code = UA pH) 6.0 1 5.0-8.0 [facility] AND [id number] 23:35:00 Test Item Value Reference Range Interpretation Comments UA Color (test code = Yellow *NA*(11/14/17 6:35 UA Color) PM) [facility] AND [id number] 23:35:00 Test Item Value Reference Range Interpretation Comments UA Protein (test code = Trace *ABN*(11/14/17 UA Protein) 6:35 PM) [facility] AND [id number] 23:35:00 Test Item Value Reference Range Interpretation Comments UA Turbidity (test code Slight Cloudy (11/14/17 = UA Turbidity) 6:35 PM) [facility] AND [id number] 23:35:00 Test Item Value Reference Range Interpretation Comments UA Hyal Cast 0-2 (11/14/17 6:35 See_Comment [Automated message] (test code = UA PM) The system w [employer] Hyal Cast) generated this result transmitted ref erence range: <=2. The reference range was not used to int erpret this result as normal/abnormal . [facility] AND [id number] 23:35:00 Test Item Value Reference Range Interpretation Comments UA Bacteria (test code = UA Occasional /HPF Bacteria) [facility] AND [id number] 23:35:00 Test Item Value Reference Range Interpretation Comments UA RBC (test code 11-20 /HPF See_Comment [Automate d message] The = UA RBC) system which ge nerated this result tra nsmitted reference range : <=2. The reference range was not used to interpr et this result as normal/abnormal . [facility] AND [id number] 23:35:00 Test Item Value Reference Range Interpretation Comments UA Sq Epi (test code = UA Sq Occasional /LPF Epi) [facility] AND [id number] 23:35:00 Test Item Value Reference Range Interpretation Comments UA WBC (test code = UA WBC) 51-100 /HPF [id number] 23:20:00 Test Item Value Reference Range Interpretation Comments Basophils # (test code 0.1 See_Comment [Aut omated message] The = Basophils #) system which generated this result tra nsmitted reference range : <=0.2. The reference r boubacar was not used to int erpret this result as normal/abnormal . [id number] 23:20:00 Test Item Value Reference Range Interpretation Comments Polychrom (test code = Polychrom) Slight [id number] 23:20:00 Test Item Value Reference Range Interpretation Comments Plt Morph (test code = Normal (11/14/17 6:20 PM) Plt Morph) [id number] 23:20:00 Test Item Value Reference Range Interpretation Comments Basophils # (test code 0.1 See_Comment [Aut omated message] The = Basophils #) system which generated this result tra nsmitted reference range : <=0.2. The reference r boubacar was not used to int erpret this result as normal/abnormal . [id number] 23:20:00 Test Item Value Reference Range Interpretation Comments Polychrom (test code = Polychrom) Slight [facility] [id number] 23:20:00 Test Item Value Reference Range Interpretation Comments Plt Morph (test code = Normal (11/14/17 6:20 PM) Plt Morph) [id number] 16:22:00 Test Item Value Reference Range Interpretation Comments CULTURE (BEAKER) (test No growth in 5 days code = 1095) BLOOD [id number] 16:22:00 Test Item Value Reference Range Interpretation [...] Normal 762) CBC W/PLT COUNT & AUTO [id number] 22:28:00 Test Item Value Reference Range Interpretation [...] 0.00-0.20 (test code = 417) [id number] METABOLIC [id number] 11:11:00 Test Item Value Reference Range Interpretation [...] NOT APPLICABLE FOR DIALYSIS PATIEN TS. URINE [id number] 09:56:00 Test Item Value Reference Range Interpretation Comments CULTURE (BEAKER) (test <10,000 col/mL skin code = 1095) marilee COMPREHENSIVE METABOLIC [id number] 08:49:00 Test Item Value Reference Range Interpretation [...] PATIEN TS. CBC W/PLT COUNT & AUTO [id number] 08:46:00 Test Item Value Reference Range Interpretation [...] 0.00-0.20 (test code = 417) 0.00URINALYSIS W/ [id number] 20:36:00 Test Item Value Reference Range Interpretation [...] SOURCE(BEAKER) (test code = 2795) BASIC METABOLIC [id number] 17:00:00 Test Item Value Reference Range Interpretation [...] Specimen slightly ictericCBC W/PLT COUNT & AUTO [id number] 12:18:00 Test Item Value Reference Range Interpretation [...]
[2022-04-15] MEDS ORDERED: PROMETHAZINE INJ 25 MG/ML AMP ONE (18:39)
[2022-04-15] MEDS ORDERED: HYDROMORPHONE HCL 2 MG/ML inj ONE (18:39)
--- NOTE | 2022-04-15 19:11 | RAD REPORT ---
EXAM DESCRIPTION: CT - Head C Spine Cap Wo Con - 04/15/2022 6:59 pm CLINICAL HISTORY: Trauma, head and neck injury. Chest, abdomen and pelvis pain. PAIN COMPARISON: <Comparisons> TECHNIQUE: CT head without contrast. CT cervical spine without contrast with coronal and sagittal reformatted images. CT chest, abdomen and pelvis without contrast with coronal and sagittal reformatted images of the spi ne. All CT scans are performed using dose optimization technique as appropriate and may include automated exposure control or mA/KV adjustment according to patient size. FINDINGS: CT HEAD WITHOUT CONTRAST: No intracranial hemorrhage, hydrocephalus or extra-axial fluid collection. 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 The paranasal sinuses and mastoids are clear. The calvarium is intact. CT CERVICAL SPINE WITHOUT CONTRAST: No fracture or subluxation. The prevertebral soft tissues are normal in thickness. CT CHEST, ABDOMEN, PELVIS WITHOUT CONTRAST: NOTE: Lack of contrast is a significant limitation in the assessment of trauma related findings. Spec ifically, solid organ, vascular and bowel evaluation is significantly limited. The lungs are clear.No pneumothorax or pericardial/pleural fluid. No evidence of intra-abdominal visceral injury, free fluid or free air is seen within the above detai led limitations. Ventriculostomy tubing coils in the abdomen. Suprapubic catheter noted. The a part o f the tubing appears to extend into the prostatic urethra. Spina bifida changes. IMPRESSION: Negative for acute traumatic findings within the above detailed limitations. A small portion of the suprapubic catheter tubing appears to extend into prostatic urethra.
--- NOTE | 2022-04-15 19:33 | EDPHYS ---
Physician Documentation [facility] Name: Roland Feldman Jr Age: 36 yrs Sex: Male : 1985 Arrival Date: 04/15/2022 Time: 17:13 Bed 15 Private MD: JESSICA Physician Clifton Quezada HPI: 04/15 18:34 This 36 yrs old Black Male presents to ER via EMS with complaints of CHRONIC PAIN. scott 18:34 The patient complains of pain to the top of head, forehead, left frontal area, left scott side of the back of head, left occipital area, left base of the skull, right frontal area, right side of the back of head, right occipital area and right base of the skull. The patient describes the headache as aching. Onset: The symptoms/episode began/occurred 3 day(s) ago. The patient presents with abdominal pain right lower quadrant, in the left lower quadrant. Onset: The symptoms/episode began/occurred 3 day(s) ago. The symptoms do not radiate. Associated signs and symptoms: The patient has no apparent associated signs or symptoms. Severity of symptoms: At its worst the pain was mild, moderate, in the emergency department the pain is unchanged. Headache History: The patient has had previous headaches and this one is similar to previous episodes. Historical: - Allergies: 17:17 Amoxicillin; ld1 17:17 Bactrim; ld1 17:17 Ciprofloxacin; ld1 17:17 CLAVULANIC ACID; ld1 17:17 Demerol; ld1 17:17 Doxycycline; ld1 17:17 Levofloxacin; ld1 17:17 PENICILLINS; ld1 17:17 Morphine; ld1 17:17 Toradol; ld1 17:17 TRIMETHOPRIM; ld1 17:17 Vancomycin; ld1 17:17 Zofran; ld1 - PMHx: 17:17 Asthma; Cerebral Palsy; cluster headaches; decubitus ulcers on feet; GERD; ld1 Hydrocephalus; Hypertension; spina bifida; - Immunization history:: Adult Immunizations up to date, Client reports receiving the 2nd dose of the Covid vaccine. - Social history:: Smoking status: Patient denies any tobacco usage or history of. Patient/guardian denies using alcohol. - Family history:: not pertinent. ROS: 18:34 Constitutional: Negative for fever, chills, and weight loss, Eyes: Negative for injury, scott pain, redness, and discharge, ENT: Negative for injury, pain, and discharge, Neck: Negative for injury, pain, and swelling, Cardiovascular: Negative for chest pain, palpitations, and edema, Respiratory: Negative for shortness of breath, cough, wheezing, and pleuritic chest pain, Back: Negative for injury and pain, : Negative for injury, bleeding, discharge, and swelling, Skin: Negative for injury, rash, and discoloration, Psych: Negative for depression, anxiety, suicide ideation, homicidal ideation, and hallucinations, Allergy/Immunology: Negative for hives, rash, and allergies, Endocrine: Negative for neck swelling, polydipsia, polyuria, polyphagia, and marked weight changes, Hematologic/Lymphatic: Negative for swollen nodes, abnormal bleeding, and unusual bruising. 18:34 Abdomen/GI: Positive for abdominal pain, abdominal cramps, abdominal distension, of the right lower quadrant and left lower quadrant. 18:34 MS/extremity: Positive for PARAPLEGIC. Exam: 18:34 Constitutional: This is a well developed, well nourished patient who is awake, alert, scott and in no acute distress. Head/Face: Normocephalic, atraumatic. Eyes: Pupils equal round and reactive to light, extra-ocular motions intact. Lids and lashes normal. Conjunctiva and sclera are non-icteric and not injected. Cornea within normal limits. Periorbital areas with no swelling, redness, or edema. ENT: Nares patent. No nasal discharge, no septal abnormalities noted. Tympanic membranes are normal and external auditory canals are clear. Oropharynx with no redness, swelling, or masses, exudates, or evidence of obstruction, uvula midline. Mucous membranes moist. Neck: Trachea midline, no thyromegaly or masses palpated, and no cervical lymphadenopathy. Supple, full range of motion without nuchal rigidity, or vertebral point tenderness. No Meningismus. Chest/axilla: Normal chest wall appearance and motion. Nontender with no deformity. No lesions are appreciated. Cardiovascular: Regular rate and rhythm with a normal S1 and S2. No gallops, murmurs, or rubs. Normal PMI, no JVD. No pulse deficits. Respiratory: Lungs have equal breath sounds bilaterally, clear to auscultation and percussion. No rales, rhonchi or wheezes noted. No increased work of breathing, no retractions or nasal flaring. Back: No spinal tenderness. No costovertebral tenderness. Full range of motion. Male : Normal genitalia with no discharge or lesions. Skin: Warm, dry with normal turgor. Normal color with no rashes, no lesions, and no evidence of cellulitis. MS/ Extremity: Pulses equal, no cyanosis. Neurovascular intact. Full, normal range of motion. Neuro: Awake and alert, GCS 15, oriented to person, place, time, and situation. Cranial nerves II-XII grossly intact. Motor strength 5/5 in all extremities. Sensory grossly intact. Cerebellar exam normal. Normal gait. Psych: Awake, alert, with orientation to person, place and time. Behavior, mood, and affect are within normal limits. 18:34 Abdomen/GI: Inspection: distension, that is mild, Bowel sounds: normal, Palpation: mild abdominal tenderness, in the right lower quadrant and left lower quadrant. 19:29 Head/face: RIGHT SIDED SHUNT RESERVOIR SOFT AND BALLOTTABLE. scott 19:29 Neck: ROM/movement: is normal, is supple, without pain, no range of motions limitations, no meningismus, no nuchal rigidity, negative Brudzinski's sign, negative Kernig's sign, limited range of motion, is not appreciated, Meningeal signs: are not present, Kernig's sign is negative, Brudzinski's sign is negative, nuchal rigidity, is not appreciated, Lymph nodes: no appreciated lymphadenopathy. Vital Signs: 17:15 BP 122 / 82; Pulse 86; Resp 22; Temp 98.1(TE); Pulse Ox 97% on R/A; Weight 113.4 kg; ld1 Pain 6/10; 18:46 BP 116 / 77; Pulse 95; Resp 17; Pulse Ox 98% ; bp 19:00 Pain 0/10; ke1 20:01 BP 119 / 78; Pulse 94; Resp 19; Temp 98.5(O); Pulse Ox 96% on R/A; Pain 0/10; ld1 Heber Coma Score: 18:38 Eye Response: spontaneous(4). Verbal Response: oriented(5). Motor Response: obeys scott commands(6). Total: 15. MDM: 17:51 Patient medically screened. scott 18:38 Differential diagnosis: cluster headache, migraine, tension headache, non-specific abd scott pain, urinary tract infection. Data reviewed: vital signs, nurses notes, lab test result(s), radiologic studies. 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 Counseling: I had a detailed discussion with the patient and/or guardian regarding: the historical points, exam findings, and any diagnostic results supporting the discharge/admit diagnosis, lab results, radiology results, the need for outpatient follow up, for definitive care, a family practitioner, a dip painter. 04/15 18:33 Order name: Urine Microscopic Only [facility] 04/15 19:39 Order name: Urine Culture [facility] 04/15 18:33 Order name: CT Traumagram (Head C Spine CAP wo con) [facility] 04/15 19:11 Order name: CT; Complete Time: 19:29 EDMS 04/15 18:33 Order name: Urine Dipstick-Ancillary (obtain specimen); Complete Time: 20:48 [facility] 04/15 18:33 Order name: Alcantara Leg Bag; Complete Time: 19:58 scott Administered Medications: 18:45 Drug: Dilaudid 3 mg Route: IM; Site: right deltoid; bp 19:00 Follow up: Pain 0/10 Adult; Response: Pain is decreased ke1 18:45 Drug: Phenergan (promethazine) 25 mg Route: IM; Site: right deltoid; bp 19:00 Follow up: Response: Nausea is decreased ke1 19:45 Drug: Rocephin (cefTRIAXone) 1 grams Route: IM; Site: right ventrogluteal; ld1 20:47 Follow up: Response: No adverse reaction ke1 Disposition Summary: 04/15/22 19:32 Discharge Ordered Location: Home scott Problem: new scott Symptoms: have improved scott Condition: Stable scott Diagnosis - UTI/ Urinary tract infection, site not specified scott - 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 , 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(04/15/22 19:33) scott Followup: scott - With: Private Physician - When: 2 - 3 days - Reason: Recheck today's complaints, Continuance of care, Re-evaluation by your physician Followup: scott - With: - When: 2 - 3 days - Reason: Recheck today's complaints, Re-evaluation by your physician Followup: scott - With: - When: 2 - 3 days - Reason: Recheck today's complaints, Re-evaluation by your physician Discharge Instructions: - Discharge Summary Sheet csott - Dysuria scott - Urinary Tract Infection, Adult scott - Urinary Tract Infection, Adult, Yuhg-zy-Ckwe scott - Brain Shunt Home Guide scott - Brain Shunt Placement, Care After scott Forms: - Medication Reconciliation Form sctot - Thank You Letter scott - Antibiotic Education scott - Prescription Opioid Use scott Prescriptions: - cefpodoxime 200 mg Oral Tablet - take 2 tablets by ORAL route every 12 hours with food; 28 tablet; Refills: 0, scott Product Selection Permitted Signatures: Dispatcher [employer] EDMS Clifton Quezada MD MD cha Peltier, Brian RN RN bp Hanh Echeverria RN RN ld1 Chandler Mccarty RN ke1 Corrections: (The following items were deleted from the chart) 19:33 19:32 Headache scott scott
--- NOTE | 2022-04-15 19:33 | ER ---
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 Pt reports ld1 catheter not being changed in 60 days - orange/dark colored urine. Coronavirus screen: At this time, the client does not indicate any symptoms associated with coronavirus-19. Ebola Screen: No symptoms or risks identified at this time. Initial Sepsis Screen: Does the patient meet any 2 criteria? No. Patient's initial sepsis screen is negative. Does the patient have a suspected source of infection? No. Patient's initial sepsis screen is negative. Risk Assessment: Do you want to hurt yourself or someone else? Patient reports no desire to harm self or others. Onset of symptoms was April 15, 2022. 17:15 Method Of Arrival: [facility] ld1 17:15 Acuity: YUKI 3 ld1 Triage Assessment: 17:17 General: Appears in no apparent distress. comfortable, Behavior is calm, cooperative, ld1 appropriate for age. Pain: Complains of pain in low back area Pain does not radiate. Pain currently is 6 out of 10 on a pain scale. Quality of pain is described as throbbing. EENT: No signs and/or symptoms were reported regarding the EENT system. Neuro: Level of Consciousness is awake, alert, obeys commands, Oriented to person, place, time, situation. Cardiovascular: Capillary refill < 3 seconds Patient's skin is warm and dry. Respiratory: Airway is patent Respiratory effort is even, unlabored. GI: Abdomen is round non-distended. : Reports pain in bilateral flank(s). Derm: No signs and/or symptoms reported regarding the dermatologic system. Musculoskeletal: No signs and/or symptoms reported regarding the musculoskeletal system. Historical: - Allergies: 17:17 Amoxicillin; ld1 17:17 Bactrim; ld1 17:17 Ciprofloxacin; ld1 17:17 CLAVULANIC ACID; ld1 17:17 Demerol; ld1 17:17 Doxycycline; ld1 17:17 Levofloxacin; ld1 17:17 PENICILLINS; ld1 17:17 Morphine; ld1 17:17 Toradol; ld1 17:17 TRIMETHOPRIM; ld1 17:17 Vancomycin; ld1 17:17 Zofran; ld1 - PMHx: 17:17 Asthma; Cerebral Palsy; cluster headaches; decubitus ulcers on feet; GERD; ld1 Hydrocephalus; Hypertension; spina bifida; - Immunization history:: Adult Immunizations up to date, Client reports receiving the 2nd dose of the Covid vaccine. - Social history:: Smoking status: Patient denies any tobacco usage or history of. Patient/guardian denies using alcohol. - Family history:: not pertinent. Screenin:19 Abuse screen: Denies threats or abuse. Denies injuries from another. Nutritional bp screening: No deficits noted. Tuberculosis screening: No symptoms or risk factors identified. Fall Risk None identified. Assessment: 17:30 General: SEE TRIAGE NOTE. bp 18:45 Reassessment: PT TO CT. bp Vital Signs: 17:15 BP 122 / 82; Pulse 86; Resp 22; Temp 98.1(TE); Pulse Ox 97% on R/A; Weight 113.4 kg; ld1 Pain 6/10; 18:46 BP 116 / 77; Pulse 95; Resp 17; Pulse Ox 98% ; bp 19:00 Pain 0/10; ke1 20:01 BP 119 / 78; Pulse 94; Resp 19; Temp 98.5(O); Pulse Ox 96% on R/A; Pain 0/10; ld1 Heber Coma Score: 18:38 Eye Response: spontaneous(4). Verbal Response: oriented(5). Motor Response: obeys scott commands(6). Total: 15. ED Course: 17:13 Patient arrived in ED. bp 17:17 Triage completed. ld1 17:17 Arm band placed on right wrist. ld1 17:51 Clifton Quezada MD is Attending Physician. scott 18:18 Holland Hays, NAIF is Primary Nurse. bp 18:19 Patient has correct armband on for positive identification. Bed in low position. Call bp light in reach. Side rails up X2. 18:45 CT Traumagram (Head C Spine CAP wo con) Sent. bp 19:30 SPT 16 fr 50 ml returned. ld1 19:32 Carlos Hong MD is Referral Physician. [facility] 19:32 Darron Valdez MD is Referral Physician. [facility] Administered Medications: 18:45 Drug: Dilaudid 3 mg Route: IM; Site: right deltoid; bp 19:00 Follow up: Pain 0/10 Adult; Response: Pain is decreased ke1 18:45 Drug: Phenergan (promethazine) 25 mg Route: IM; Site: right deltoid; bp 19:00 Follow up: Response: Nausea is decreased ke1 19:45 Drug: Rocephin (cefTRIAXone) 1 grams Route: IM; Site: right ventrogluteal; ld1 20:47 Follow up: Response: No adverse reaction ke1 Outcome: 19:32 Discharge ordered by . [facility] 20:48 Patient left the ED. ke1 Signatures: Clifton Quezada MD MD cha Peltier, Brian RN RN Hanh Echeverria RN RN ld1 Chandler Mccarty RN RN ke1 Corrections: (The following items were deleted from the chart) 20:00 19:30 Alcantara cath inserted, using sterile technique, returned cloudy urine. Patient ld1 tolerated well. Suprapubic 50 ml urine returned ld1 20:01 19:30 Alcantara cath inserted, using sterile technique, 16 Fr., returned cloudy urine. ld1 Patient tolerated well. Suprapubic 50 ml urine returned ld1
[2022-04-15] MEDS ORDERED: CEFTRIAXONE 1000 MG/VIAL ONE (19:46)
[2022-04-15] MEDS ORDERED: WATER FOR INJ,STERILE 10 ML ONE (19:47)
[2022-04-15 21:05] VITALS: BP 119/78; TEMP 98.5; O2SAT 96
[2022-04-15 21:14] LABS: Urine Bacteria 20-50 /HPF (<20); Urine RBC >50 /HPF (None Seen); Urine WBC Clump Moderate /HPF (None Seen)
== END 2022-04-15 20:48 | disposition home or self-care (01) ==
LOC: ER 17:09
DX: N39.0 Urinary tract infection, site not specified (principal); R51.9 Headache, unspecified; G80.9 Cerebral palsy, unspecified; J45.909 Unspecified asthma, uncomplicated; K21.9 Gastro-esophageal reflux disease without esophagitis; L89.899 Pressure ulcer of other site, unspecified stage; Q05.4 Unspecified spina bifida with hydrocephalus; G82.20 Paraplegia, unspecified; Z98.2 Presence of cerebrospinal fluid drainage device; Z88.0 Allergy status to penicillin; Z88.5 Allergy status to narcotic agent
CPT/HCPCS: 87088; 87086; 81015; 70450; 71250; 72125; 96372; 99283; J2550; J1170

== ENCOUNTER 2022-06-08 14:00 | Inpatient (IN) | payer OTHER ==
--- OUTSIDE RECORDS SUMMARY | 2022-06-08 14:37 | XMS REPORT | Continuity of Care Document ---
:1985 [facility] t Address [address] [place] [address] Support Name Relationship Address Phone LAMAR NGUYEN [address] [place] [id number] LAMAR NGUYEN [place] [address] [place] [id number] one else per patient, No Unavailable Unavailable Unavail able Roland Nguyen Unavailable [address] [phone] [place] [address] Lana Nguyen Unavailable Unavailable [phone] Patrick LincolnRolando Unavailable [address] [place] [address] PatrcikLanLamar Mother [address] [phone] [place] [id number] PATIENT, NO ONE ELSE PER Unavailable Unavailable Unavail able PHYILLIS Grandparent Unavailable Unavailable LAMAR NGUYEN M [address] [place] [id number] Angelamartín NguyenLamar Mother [address] [place] [id number] HOSSEIN, LISA Grandparent Unavailable ROLAND NGUYEN F [address] Unavailable [place] [id number] O'GALDINO, LISA NOEMÍ Grandparent [address] [place] [address] Noemí O'Galdino, Lisa Grandparent [address] [place] [id number] Patrick Sr., Roland Father [address] [phone] [place] [address] Care Team Providers Name Role Phone Sharpjocelyn Primary Care Physician Eren Varela Attending Clinician Unavailable ALHAJI INMAN Attending Clinician Unavailable YUDI HOLLOWAY Attending Clinician Unavailable YUDI HOLLOWAY Attending Clinician Unavailable NEGAR GUARDADO Attending Clinician Unavailable Sissy ROTARY DRIER, Lynette Do Attending Clinician Negar Guardado DO Attending Clinician STEPHANIE BALDERRAMA Attending Clinician Unavailable Conchis BEEF GRINDER, Stephanie Quiles Attending Clinician LAMINE SERNA Attending Clinician Unavailable Lamine Serna MD Attending Clinician Kamila Zepeda LVN Attending Clinician KAYLEE ARGUETA Attending Clinician Unavailable Diomedes Lester Attending Clinician Kaylee Argueta MD Attending Clinician BEVERLY, SARAH BETH A Attending Clinician Unavailable Vesta Golden RN Attending Clinician Unavailable Concetta Jackson MD Attending Clinician Christiano DISLA, Kristie Johnson Attending Clinician RICARDO CONROY Attending Clinician Unavailable Harry MURPHYP, Vic B Attending Clinician Edwardo NUNO, Royer Suárez Attending Clinician [phone] Michelle NUNO, Aurora Burton Attending Clinician Mayank NUNO, Adonis G Attending Clinician Ricardo Conroy MD Attending Clinician Heide Abraham MD Attending Clinician Francisco NUNO, Huy Johnson Attending Clinician Beverly PEREA, Sarah Beth A Attending Clinician [phone] DILEEP CONNOLLY Attending Clinician Unavailable Carlene Montgomery S Attending Clinician Cathleen NUNO, Dileep Attending Clinician SHAHBAZ BUENROSTRO Attending Clinician Unavailable SIDNEY SANFORD Attending Clinician Unavailable Radnall Sands MD Attending Clinician Sidney Sanford DO Attending Clinician JENNIFER OLIVERA Attending Clinician Unavailable Jennifer Olivera MD Attending Clinician DOV BUENROSTRO Attending Clinician Unavailable Dontae Talley MD Attending Clinician Dov Buenrostro MD Attending Clinician Vadim Ferreira APN Attending Clinician Mario Urbina Attending Clinician KIRIT LARA Attending Clinician Unavailable Vito Mckeon MD Attending Clinician Thomas León MD Attending Clinician Daily Burger MD Attending Clinician Kirit Lara MD Attending Clinician Unavailable COURTNEY MENDES Attending Clinician Unavailable Courtney Mendes MD Attending Clinician AKASH ALEXIS Attending Clinician Unavailable Akash Alexis Attending Clinician Josemanuel Samayoa Attending Clinician Roger NEFF Attending Clinician Unavailable Roger Lam Attending Clinician LYNETTE FONSECA Attending Clinician Unavailable Only, Ang Db Test Attending Clinician Unavailable Sierra Lundberg MD Attending Clinician SIERRA LUNDBERG Attending Clinician Unavailable Brittany Preciado Attending Clinician BRITTANY HELMS Attending Clinician Unavailable DICKSON MEDRANO Attending Clinician Unavailable Zahra De Jesus Attending Clinician Ruth Quesada Attending Clinician JAQUELIN GENAO Attending Clinician Unavailable GEO, NEGAR Admitting Clinician Unavailable Negar Guardado DO Admitting Clinician LAMINE SERNA Admitting Clinician Unavailable KAYLEE ARGUETA Admitting Clinician Unavailable Kaylee Argueta MD Admitting Clinician AURORA MARTINEZ Admitting Clinician Unavailable Aurora Martinez MD Admitting Clinician DILEEP CONNOLLY Admitting Clinician Unavailable Dileep Connolly MD Admitting Clinician SIDNEY SANFORD Admitting Clinician Unavailable DOV BUENROSTRO Admitting Clinician Unavailable Dov Buenrostro MD Admitting Clinician VITO MCKEON Admitting Clinician Unavailable Vito Mckeon MD Admitting Clinician COURTNEY MENDES Admitting Clinician Unavailable Courtney Mendes MD Admitting Clinician ZAHRA WHITT Admitting Clinician Unavailable Zahra Whitt Admitting Clinician Josemanuel Samay[place] Admitting Clinician Roger NEFF Admitting Clinician Unavailable STEPHANIE BALDERRAMA Admitting Clinician Unavailable LYNETTE FONSECA Admitting Clinician Unavailable ROBERT JOHNSON Admitting Clinician Unavailable Dalton Molina Admitting Clinician Ruth Quesada Admitting Clinician JAQUELIN GENAO Admitting Clinician Unavailable Payers Payer Name Policy Type Policy Number Effective Date Expiration Date Christ dawson [facility] [id number] 2020 PLUS 00:00:00 [facility] [id number] 2022 00:00:00 [facility] [id number] Common (Medicaid) [facility][note 3] [id number] Common (Medicaid) [facility][note 3] [id number] Common (Medicaid) [facility][note 3] [id number] Common (Medicaid) [facility] [id number] Common (Medicaid) [facility] Problems Condition Condition Condition Status Onset Resolution Last Treating Co mments Source Name Details Category Date Date Treatment Clinician Date Lactic Lactic Disease Active 2021-07 Univers acidosis acidosis 1-06 ity of 00:00: [place] 00 Medical Branch Nausea and Nausea and Disease Active 2021-07 U nivers vomiting, vomiting, 0-21 ity of unspecif[place] d vomiting 00 Me dical type type Branch Chest pain Chest pain Disease Active U nivers 8-04 ity of 00:00: [place] 00 Medical Branch Foot ulcer Foot ulcer Disease Active Overview : Univers with fat with fat 02-14 Formattin ity of layer layer 00:00: g of this [place] exposed, exposed, 00 note Medica l left left might be Branch different from the original. Added automatic ally from request for surgery [id number] Right foot Right foot Disease Active Overview : Univers ulcer, ulcer, 02-14 Formattin ity of with fat with fat 00:00: g of this [place] as layer layer 00 note Medical exposed exposed might be Branch different from the original. Added automatic ally from request for surgery [id number] Diabetic Diabetic Disease Active Unive rs ketoacidos ketoacidos 7- it y of [place] without is without [place] coma coma 00 Medical associated associated Br anch with type with type 1 diabetes 1 diabetes mellitus mellitus Abdominal Abdominal Disease Active Uni vers pain, pain, 6-24 ity of unspecifie unspecifie [place] d 00 Medical abdominal abdominal Bran ch location location Hyperglyce Hyperglyce Disease Active U nivers pedro pedro 6-07 ity of 00:00: [place] 00 Medical Branch Decubitus Decubitus Disease Active Uni vers ulcer of ulcer of 6-05 ity of heel, heel, 00:00: [place] left, left, 00 Medical unstageabl unstageabl Br anch e e Diabetic Diabetic Disease Active Unive rs ketoacidos [...] Univers 6-05 ity of 00:00: [place] 00 [facility] Chronic Chronic Disease Active Univers suprapubic suprapubic 6 it y of catheter catheter 00:00: [place] [facility] Branch Uncontroll Uncontroll Disease Active U braulio ed ed 6 ity of diabetes diabetes 00:00: [place] mellitus mellitus 00 Medica l with with Branch complicati complicati ons ons Spina Spina Disease Recurre Univers bifida bifida nce 12-15 ity of 00:00: [place] [facility] Branch Wound Wound Disease Active Univers infection infection 5- ity of 00:00: [place] [facility] Branch Chills Chills Disease Active Univers 5- ity of 00:00: [place] [facility] POSSIBLE POSSIBLE Diagnosis Active 2021-11-01 Memoria 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 10-20 21:48:00 l MALFUNCTIO MALFUNCTIO 00:00: lAexis granados N N Active 00 10/20/2021 [facility] 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 Diagnosis Active 2021-10-11 Memoria MALFUNCTIO MALFUNCTIO 3-25 14:12:00 l N N Active 00:00: Jason 10/06/2021 [facility] 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 Diagnosis Active 2021-10-05 Memoria MALFUCTION MALFUCTION 3-24 23:59:00 l Active 00:00: Jason 10/05/2021 [facility] Complicate Complicate Disease Active U nivdomenic d urinary d urinary 1-20 ity of tract tract 00:00: [place] infection infection 00 [facility] Hyperglyce Hyperglyce Disease Active [facility] ped[facility] pedro 1[facility]07 [facility] without without 00:00: Medical ketosis ketosis 00 Center HEADACHE HEADACHE Diagnosis Active 2017-072018-05-27 Memoria Active 07-22 22:05:00 l 05/22/2018 00:00: [facility] [address] SHUNT SHUNT Diagnosis Active 2017-11-14 Mem oria MALFUNCTIO MALFUNCTIO 11-14 20:00:00 l N N Active 00:00: Jason 11/14/2017 00 [facility] ACUTE ACUTE Diagnosis Active 2017-11-20 Mem oria HEADACHE HEADACHE 11-14 09:20:00 l Active 00:00: Jason 11/14/2017 00 [facility] Spina Spina Disease Active [facility] bif[facility] bifida 6[facility]12 [facility] 00:00: Medical 00 [place] Pyelonephr Pyelonephr Disease Active [facility] itis itis 6-11 [facility] 00:00: Medical 00 [place] Morbid Morbid Disease Active Univers obesity obesity 1-04 ity of with body with body 00:[place] mass index mass index 00 Me dical of of Branch 40.0-49.9 40.0-49.9 Spina Spina Problem 2018-12-09 Memor ia bifida, bifida, 14:14:02 l unspecifie unspecifie He rmann d d 12/09/2018 [facility] Nausea Nausea Problem 2018-12-09 Erwin benjamin with with 14:14:02 l vomiting, vomiting, Herm carly unspecifie unspecifie d d 12/09/2018 [facility] Diplopia Diplopia Problem 2018-12-09 Memoria 12/09/2018 14:14:02 l [facility] Cerebral Cerebral Problem 2018-12-09 Memoria palsy, palsy, 14:14:02 l unspecifie unspecifie He rmann d d 12/09/2018 [facility] Acquired 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-09 Memoria absence of absence of 14:14:02 l other other Jason specified specified parts of parts of digestive digestive tract tract 12/09/2018 [facility] Nicotine Nicotine Problem 2018-12-09 Memoria dependence dependence 14:14:02 l , , [place] cigarettes cigarettes , , uncomplica uncomplica lester lester 12/09/2018 [facility] Presence Presence Problem 2018-12-09 Memoria of of 14:14:02 l cerebrospi cerebrospi He rmann nal fluid nal fluid drainage drainage device device 12/09/2018 [facility] Allergy Allergy Problem 2018-12-09 Me moria status to status to 14:14:02 l other other Jason antibiotic antibiotic agents agents status status 12/09/2018 [facility] Allergy Allergy Problem 2018-12-09 Me moria status to status to 14:14:02 l other other [place] drugs, drugs, medicament medicament s and s and biological biological substances substances status status 12/09/2018 [facility] Allergy Allergy Problem 2018-12-09 M emoria status to status to 14:14:02 l narcotic narcotic Christian n agent agent status status 12/09/2018 [facility] Asthma Asthma Problem Resolve 2021-10-27 Mem oria (disorder) (disorder) d 23:48:47 l Resolved Jason Problem 10/27/2021 [facility] [place] Bronchitis Bronchiti Problem Resolve 2021-10-27 Memoria (disorder) s d 23:48:47 l (disorder) Christian n Resolved Problem 10/27/2021 [facility] [place] 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-27 Memoria palsy palsy d 23:48:47 l (disorder) (disorder) He rmann Resolved Problem 10/27/2021 [facility] [place] Hydrocepha Hydroceph Problem Resolve 2021-10-27 Memoria bam alus d 23:48:47 l (disorder) (disorder) He rmann Resolved Problem 10/27/2021 [facility] [place] Osteomyeli Osteomyel Problem Resolve 2021-10-27 Memoria tis itis d 23:48:47 l (disorder) (disorder) He rmann Resolved Problem 10/27/2021 [facility] [place] Acute pain Acute Problem Active 2021-10-27 M emoria (finding) pain 23:48:47 l (finding) Jason Active Problem 10/27/2021 [facility] [place] Morbid Morbid Problem Active 2021-10-27 Erwin benjamin obesity obesity 23:48:47 l (disorder) (disorder) He rmann Active Problem 10/27/2021 [facility] Providenci Providenc Problem Active 2021-10-27 Memoria a ia 23:48:47 l (organism) (organism) He rmann Active Problem 10/27/2021 Problem added by Discern Expert. [facility] Lumbar Problem Active Common spina [facility] bifida - [facility] Dependence Problem Active Commo n on Spirit wheelchair - [facility] Paraplegia Problem Active Commo n [facility] Constipati Problem Active Commo n on Spirit [facility] Incontinen Problem Active Commo n ce of Spirit urine [facility] Nausea Problem Active Common [facility] Mixed Problem Active Common anxiety [facility] and - [facility] depressive [facility] [id number] Problem Active Common [facility] Bowel Problem Active Common incontinen Spirit [facility] [id number] Problem Active Common [facility] [id number] Problem Active Common [facility] [id number] Problem Active Common [facility] [id number] Problem Active Commo n [id number] [facility] Foot ulcer Problem Active Commo n [facility] Myelocele Problem Active Common with Spirit hydrocepha [facility] [id number] Problem Active Common [facility] [id number] Problem Active Common [facility] Nicotine Problem Active Common dependence [facility] [id number] Problem Active Common [facility] [id number] Problem Active Common [facility] [id number] Problem Active Common [facility] [id number] Problem Active Common [facility] History of Past Illness Condition Condition Condition Status Onset Resolution Last Treating Co mments Source Name Details Category Date Date Treatment Clinician Date Headache Headache Problem 2017-072018-12-09 2018-12-09 Memoria 05/22/201807-22 14:14:02 14:14:02 l 12/09/2018 06:00: [facility] [address] Allergies, Adverse Reactions, Alerts Allergy Allergy Status Severity Reaction(s) Onset Inactive Treating Comm ents Source Name Type Date Date Clinician Amoxicil Propensi Active Hives Univer [place] to 02-07 ity of adverse 00:00: [place] reaction 00 Medical s Branch AMOXICIL DRUG Active Hives 2018-0 Univers LAKE INGREDI 7-27 ity of 00:00: [place] 00 Medical Branch Metoclop Propensi Active Nausea 2017- Univer s ramide ty to and/or 2-20 ity of Hcl adverse Vomiting 00:00: [place] reaction 00 Medical s Branch METOCLOP DRUG Active N/V 2017-1 Univers RAMIDE INGREDI 2-20 ity of HCL 00:00: [place] 00 [facility] Branch SULFAMET Allergy Active High Hives 2017-[address] [facility] HOXAZOLE 6-11 [facility] -TRIMETH 00:00: Medical OPRIM 00 Center LEVOFLOX Allergy Active High Hives 2017-[address] [facility] ACIN 6-11 [facility] 00:00: Medical 00 Center MORPHINE Allergy Active High Hives 2017-[address] [facility] 6-11 [facility] 00:00: Medical 00 Center KETOROLA Allergy Active High Rash 2017-[address] [facility] C 6-11 [facility] 00:00: Medical 00 Center VANCOMYC Allergy Active High Rash 2017-[address] [facility] IN 6-11 [facility] ANALOGUE 00:00: Medical S 00 Center SESAME Allergy Active Hives 2017-[address] [facility] SEED 6-11 [facility] 00:00: Medical 00 Center ONDANSET Allergy Active N\\T\\V 2017-[address] KUMAR HCL 6-11 [facility] (PF) 00:00: Medical 00 Center Sulfamet Propensi Active Hives 2017-[address] hoxazole ty to 6-11 [facility] -Trimeth adverse 00:00: Medical oprim reaction 00 Center s Levoflox Propensi Active Hives 2017-[address] acin ty to 6-11 [facility] adverse 00:00: Medical reaction 00 Center s Morphine Propensi Active Hives 2017-[address] ty to 6-11 [facility] adverse 00:00: Medical reaction 00 Center s Sesame Propensi Active Hives 2017-[address] [...] Drug Active Other-Cmnt Univer s (SULFONA Class - ity of MIDE 00:00: [place] ANTIBIOT 00 [...] 00 Medical Branch KETOROLA DRUG Active N/V 2007- Univers C INGREDI 12-04 ity of TROMETHA 00:00: [place] MINE 00 Medical Branch morphine Drug Active Common allergy [facility] ondanset Drug Active Common kumar allergy [facility] [id number] Drug Active Common allergy [facility] amoxicil amoxicil Active Memori [place] morphine morphine Active Memori a l [place] Toradol Toradol Active Memoria l [place] Minocin Minocin Active Memoria l [place] Zofran Zofran Active Memoria l [place] Levaquin Levaquin Active Memori a l [place] Bactrim Bactrim Active Memoria l [place] Reglan Reglan Active Memoria l [place] Family History Family Member Diagnosis Comments Start Date Stop Date Source Natural father Diabetes [facility] Natural mother No Significant Univer sity of [facility] Problems Medical Branch Social History Social Habit Start Date Stop Date Quantity Comments Source History [facility] o f Alcohol Frequency [facility] edical Branch History [facility] o f Alcohol Std Drinks [facility] Branch History [facility] o f Alcohol Binge [place] Medic al Branch History of tobacco Cigarette Smoker [facility] Exposure to 2022-05-10 2022-05-20 Not sure University of SARS-CoV-2 (event) 00:00:00 19:56:00 [facility] Alcohol intake 2022-05-20 2022-05-20 Current drinker Unive rsity of 00:00:00 00:00:00 of alcohol [facility] (finding) Branch Education 2022-05-20 2022-05-20 21 University of 00:00:00 00:00:00 [facility] Tobacco use and 2022-05-04 2022-05-04 Smokeless Universit y of exposure 00:00:00 00:00:00 tobacco non-user [facility] dical [place] Alcohol Comment 2022-02-15 2022-02-15 once a year Universi ty of 00:00:00 00:00:00 [facility] Social History 2021-10-06 2021-10-06 [facility] ermann 05:57:00 05:57:00 Cigarettes smoked 2016-12-23 2016-12-23 DEDE Guzman current (pack per 00:00:00 00:00:00 Medical Center day) - Reported Sex Ass[birth year] At [birth year] DEDE Bakers 00:00:00 00:00:00 Medical Center Smoking Status Start Date Stop Date Source Social History 2018-05-22 11:26:10 [facility] Medications Ordered Filled Start Stop Current Ordering Indication Dosage Frequency Signature Comments Components Source Medication Medication Date Date Medication? Clinician (SIG) Name Name Nitrofurant 2021-07- Yes 100mg 100 mg, U nivers oin&Nit. 07-2213 Oral, BID, ity of Macrocryst 02:00: 01:59 10 doses, [place] (MACROBID) 00 :00 First dose Med ical 100 mg on Sat Branch capsule 100 05/21/22 at mg 2000, Last dose on 05/26/22 at 0800, Routine
Reason for Anti-Infec tive: Empiric Therapy for Suspected Infection< br>Empiric Therapy Site: Urine
D uration of therapy: 72 hours ceFEPIme 2021-07- No 1000mg 1,000 mg, U nivers (MAXIPIME) 07-21 IV ity of 1,000 mg in 21:15: 21:34 [place], [place] NaCl 0.9% 00 :48 ONCE, 1 Medical (NS) 50 mL dose, On [facility] MINI-BAG Sat05/21/22 at 1515, Administer over 30 Minutes, 50 mL
Reas on for Anti-Infec tive: Documented Infection< br>Documen lester Infection Site: Urine<br&g t;Duration of Therapy: 7 days HYDROmorpho 2021-07 Yes 4mg Take 4 mg U nivers ne 4 mg -07 by mouth 3 ity of tablet 17:55: (three) [place] 40 times Medical daily as Branch needed. enoxaparin 2021-07 Yes 40mg 40 mg, Unive rs (LOVENOX) 07-21 Subcutaneo ity of injection 15:00: [place], [place]ILY, [place] 40 mg 00 First dose Medical on Sat [place] 05/21/22 at 0900, Until Discontinu ed, Routine Sliding 2021-07 Yes Subcutaneo Univ ers Scale -07 us, TID ity of Insulin - 03:00: MEALS+HS, [place] as Lispro 00 First dose Medical (HumaLOG) + on [facility] Fsbg 05/20/22 at Testing 2100, Until Discontinu ed, Routine FENTanyl PF 2021-07- No 75ug 75 mcg, Un ela (SUBLIMAZE 07-21 Slow IV ity o f (PF)) 01:15: 00:23 Push, [place] injection 00 :00 ONCE, 1 Medical 75 mcg dose, On [facility] 05/20/22 at 1915, Routine dextrose 2021-07 Yes 250mL 250 mL, IV Un ela 10% (D10W) 07-21 Infusion, ity of bolus 01:12: PRN - SEE [place] infusion 23 INSTRUCTIO Medic al 250 mL NS, Branch Administer over 60 Minutes, Other, If blood glucose is < or = 70 mg/dL and patient is unable to swallow or has mental status changes, Starting on [place] 05/20/22 at 1912
If blood glucose is < or = 70 mg/dL and patient is unable to swallow or has mental status changes (Give glucagon order if patient needs fluid restrictio n): IF IV access available: Dextrose 10%. 1. 125 mL (? bag) of D10W IV infusion - equivalent to 12.5 g dextrose 2. Blood glucose - draw blood glucose 15 minutes after D10W Administra tion. 3. If blood glucose is < 80 mg/dL, repeat.
glucagon 2021-07 Yes 1mg 1 mg, Univers (GLUCAGEN 07-21 Intramuscu ity of DIAGNOSTIC 01:12: lar, PRN, [place] KIT) 20 Starting Medical injection 1 on [facility] mg 05/20/22 at 1912, Until Discontinu ed, SAHARA, Blood Glucose < or = 70 mg/dL and patient is unable to swallow or has mental changes. HYDROmorpho 2021-07 Yes 4mg 4 mg, Unive rs ne 07-21 Oral, ity of (DILAUDID) 01:08: Q6HPRN, [place] tablet 4 mg 42 Starting Medi efrain on [place] 05/20/22 at 1908, Until Discontinu ed, Routine, Pain (scale 7-10) proMETHazin 2021-07 Yes 12.5mg 12.5 mg, Univers e 07-21 Oral, ity of (PHENERGAN) 01:06: Q4HPRN, Tim as tablet 12.5 57 Starting Medi efrain mg on Sun Branch 05/20/22 at 1906, Until Discontinu ed, Routine, Nausea and Vomiting (N/V) acetaminoph 2021-07 Yes 650mg 650 mg, Un ela en 07-21 Oral, ity of (TYLENOL) 01:05: Q6HPRN, [place] tablet 650 57 Starting Medic al mg on Sun Branch 05/20/22 at 1905, Until Discontinu ed, Routine, Pain (scale 1-3) NaCl 0.9% 2021-07- No 1000mL at 999 Uni vers (NS) bolus 07-2107 mL/hr, ity of infusion 00:30: 00:35 1,000 mL, Tim as 1,000 mL 00 :00 IV Medical Infusion, Branch ONCE, 1 dose, On [place] 05/20/22 at 1830, STAT Nitrofurant 2021-07- Yes [id number] 100mg Take 1 Univers oin&Nit. 07-21 11-15 capsule by ity of Macrocryst 00:00: 05:59 mouth in [place] 100 mg 00 :00 the Medical capsule morning Branch and 1 capsule in the evening. Do all this for 7 days. NaCl 0.9% 2021-07- No 1000mL at 999 Uni vers (NS) bolus 07-2007 mL/hr, ity of infusion 23:45: 00:36 1,000 mL, Tim as 1,000 mL 00 :00 IV Medical Infusion, Branch ONCE, 1 dose, On [place] 05/20/22 at 1745, SAHARA FENTanyl PF 2021-07- No 75ug 75 mcg, Un ela (SUBLIMAZE 07-20 Slow IV ity o f (PF)) 23:45: 23:19 Push, [place] injection 00 :00 ONCE, 1 Medical 75 mcg dose, On Branch 05/20/22 at 1745, Routine iopamidol 2021-07- No [id number] 85mL 85 mL, Univers (ISOVUE 0-30 10-30 Intravenou ity o f 370-500 mL) 03:00: 02:09 s, ONCE, 1 [place] injection 00 :00 dose, On Medica l 85 mL Sat Branch 05/12/22 at 2200, Routine FENTanyl PF 2021-07- No 50ug 50 mcg, Un ela (SUBLIMAZE 0-30 10-30 Slow IV ity o f (PF)) 02:45: 01:47 [place], [place] injection 00 :00 ONCE, 1 Medical 50 mcg dose, On Branch 05/12/22 at 2145, Routine cefdinir 2021-07- No 300mg 300 mg, Univ ers (OMNICEF) 0-30 10-30 Oral, ity of capsule 300 02:15: 03:14 ONCE, 1 [place] mg 00 :00 dose, On Medical Sat Branch 05/12/22 at 2115, SAHARA
Re ason for Anti-Infec tive: Documented Infection< br>Documen lester Infection Site: Urine
D uration of Therapy: Other (see Comments) proMETHazin 2021-07 No 25mg 25 mg, IV Univers e 0-30 10-30 Piggyback, ity of (PHENERGAN) 01:45: 01:47 ONCE, 1 [place] 25 mg in 00 :00 dose, On Medical NaCl 0.9% Sat Branch (NS) 50 mL 05/12/22 IV at 2045, piggyback SAHARA cefdinir 2021-07 Yes [id number] 300mg Take 1 [place] 300 mg 0-29 capsule by ity of capsule 00:00: mouth [place] 00 every 12 Medical (twelve) Branch hours. cefdinir 2021-07 Yes [id number] 300mg Take 1 [place] 300 mg 0-29 capsule by ity of capsule 00:00: mouth [place] 00 every 12 Medical (twelve) Branch hours. cefdinir 2021-07- No [id number] 300mg Take 1 U nivers 300 mg 0-29 - capsule by ity of capsule 00:00: 00:00 mouth [place] 00 :00 every 12 Medical (twelve) Branch hours. HYDROmorpho 2021- Yes 4mg Take 4 mg U nivers ne 4 mg 0-23 by mouth 3 ity of tablet 12:52: (three) [place] 28 times Medical daily as Branch needed. HYDROmorpho 2021-1 Yes 4mg Take 4 mg U nivers ne 4 mg 0-23 by mouth 3 ity of tablet 12:52: (three) [place] 28 times Medical daily as Branch needed. HYDROmorpho 2021-1 Yes 4mg Take 4 mg U nivers ne 4 mg 0-23 by mouth 3 ity of tablet 12:52: (three) [place] 28 times Medical daily as Branch needed. HYDROmorpho 2021-1 Yes 4mg Take 4 mg U nivers ne 4 mg 0-23 by mouth 3 ity of tablet 12:52: (three) [place] 28 times Medical daily as Branch needed. HYDROmorpho 2021-07- No .5mg 0.5 mg, [place] ne 0-23 10- Slow IV ity of (DILAUDID) 03:15: 03:23 Push, [place] injection 00 :00 ONCE, 1 Medical 0.5 mg dose, On Branch 05/05/22 at 2215, Routine
Use approved by (Faculty): ADC PROVIDER HYDROmorpho 2021-07- No .5mg 0.5 mg, [place] ne 0-22 - Slow IV ity of (DILAUDID) 02:00: 02:00 Push, [place] injection 00 :00 ONCE, 1 Medical 0.5 mg dose, On Branch Sat05/04/22 at 2100, Routine
Use approved by (Faculty): ADC PROVIDER doxycycline 2021-07- No 100mg 100 mg, IV Univers (VIBRAMYCIN 05-05 Piggyback, i ty of ) 100 mg in 23:30: 20:05 Q12H ABX, [place] NaCl 0.9% 00 :47 10 doses, Medic al (NS) 100 mL First dose Br anch MINI-BAG on Sat05/04/22 at 1830, Last dose on Sat05/09/22 at 0630, Administer over 60 Minutes, 100 mL
Reas on for Anti-Infec tive: Empiric Therapy for Suspected Infection< br>Empiric Therapy Site: Skin / Soft tissue
Duration of therapy: 72 hours enoxaparin 2021-07 Yes 40mg 40 mg, Unive rs (LOVENOX) 0-21 Subcutaneo ity of injection 22:00: us, [place]ILY, [place] 40 mg 00 First dose Medical on Sat Branch 05/04/22 at 1700, Until Discontinu ed, Routine ceFEPIme 2021-07- Yes 2000mg 2,000 mg, U nivers (MAXIPIME) 0-05-09 IV ity of 2,000 mg in 21:00: 20:59 [place], [place] NaCl 0.9% 00 :00 Q8H ABX, Medica l (NS) 50 mL 15 doses, [place] MINI-BAG First dose on Sat05/04/22 at 1600, Last dose on Sat05/09/22 at 0800, Administer over 4 Hours, 50 mL
Reas on for Anti-Infec tive: Empiric Therapy for Suspected Infection< br>Empiric Therapy Site: Abdominal< br>Duratio n of therapy: 5 days HYDROmorpho 2021-07 Yes 4mg 4 mg, Unive rs ne 0-21 Oral, ity of (DILAUDID) 19:38: Q4HPRN, [place] tablet 4 mg 15 Starting Medi efrain on Sat Branch 05/04/22 at 1438, Until Discontinu ed, Routine, Pain (scale 7-10) sodium 2021-07 Yes Topical, Univers hypochlorit 0-21 BID, First it y of e 0.125 % 18:30: dose on [place] (DAKIN'S Sat Medical SOLUTION) 05/04/22 Branch solution at 1330, Until Discontinu ed, Routine ceFEPIme 2021-07- No 2000mg 2,000 mg, U nivers (MAXIPIME) 0- 10- IV ity of 2,000 mg in 13:15: 14:55 [place], [place] NaCl 0.9% 00 :00 ONCE, 1 Medical (NS) 50 mL dose, On [facility] h MINI-BAG Sat05/04/22 at 0815, Administer over 30 Minutes, 50 mL
Reas on for Anti-Infec tive: Empiric Therapy for Suspected Infection< br>Empiric Therapy Site: Urine
D uration of therapy: 5 days Sliding 2021-07 Yes Subcutaneo Univ ers Scale 0-21 us, AC+HS, ity of Insulin-Reg 12:30: First dose [place] ular + Fsbg 00 on Sat Medica l Testing 05/04/22 Branch at 0730, Until Discontinu ed, Routine acetaminoph 2021-07 Yes 650mg 650 mg, [place] en 0- Oral, ity of (TYLENOL) 12:08: Q6HPRN, [place] tablet 650 12 Starting Medic al mg on Sat Branch 05/04/22 at 0708, Until Discontinu ed, Routine, Pain (scale 1-3) HYDROmorpho 2021-07 No .5mg 0.5 mg, [place] ne 0- 10- Slow IV ity of (DILAUDID) 12:07: 16:23 Push, [place] injection 21 :00 Q4HPRN, 2 Medic al 0.5 mg doses, Branch Starting on Sat05/04/22 at 0707, Until Discontinu ed, Routine, Pain (scale 7-10)
U se approved by (Faculty): ADC PROVIDER proMETHazin 2021-07 Yes 12.5mg 12.5 mg, Univers e 0-21 IV ity of (PHENERGAN) 12:07: Piggyback, [place] 12.5 mg in 04 Q4HPRN, Medica l NaCl 0.9% Starting Branch (NS) 50 mL on Sat IV 05/04/22 piggyback at 0707, Until Discontinu ed, Routine, Nausea and Vomiting (N/V) dextrose 2021-07 Yes 250mL 250 mL, IV [place] 10% (D10W) 0-21 Infusion, ity of bolus 11:02: PRN - SEE [place] infusion 05 INSTRUCTIO Medic al 250 mL NS, Branch Administer over 60 Minutes, Other, If blood glucose is < or = 70 mg/dL and patient is unable to swallow or has mental status changes, Starting on Sat05/04/22 at 0602
If blood glucose is < or = 70 mg/dL and patient is unable to swallow or has mental status changes (Give glucagon order if patient needs fluid restrictio n): IF IV access available: Dextrose 10%. 1. 125 mL (? bag) of D10W IV infusion - equivalent to 12.5 g dextrose 2. Blood glucose - draw blood glucose 15 minutes after D10W Administra tion. 3. If blood glucose is < 80 mg/dL, repeat.
acetaminoph 2021-07 Yes 650mg 650 mg, [place] en 0 Oral, ity of (TYLENOL) 11:01: Q6HPRN, [place] tablet 650 26 Starting Medic al mg on Fri Branch 05/04/22 at 0601, Until Discontinu ed, Routine, Pain (scale 1-3) iopamidol 2021-07- No [id number] 100mL 100 mL, Univers (ISOVUE 05-04 Intravenou ity o f 370-500 mL) 08:00: 08:00 s, ONCE, 1 [place] injection 00 :00 dose, On Medica l 100 mL Fri Branch 05/04/22 at 0300, Routine ceFEPIme 2021-07- No 1000mg 1,000 mg, U nivers (MAXIPIME) 05-04 IV ity of injection 07:15: 07:36 Piggyback, [place] 1,000 mg 00 :00 ONCE, 1 Medical dose, On Branch Sat05/04/22 at 0215, STAT
Re ason for Anti-Infec tive: Documented Infection< br>Documen lester Infection Site: Skin / Soft Tissue
Duration of Therapy: Other (see Comments) FENTanyl PF 2021-07- No 50ug 50 mcg, [place] (SUBLIMAZE 05-04 Slow IV ity o f (PF)) 06:30: 06:12 Push, [place] injection 00 :00 ONCE, 1 Medical 50 mcg dose, On Branch 05/04/22 at 0130, SAHARA proMETHazin 2021-07- No 12.5mg 12.5 mg, Univers e 05-04 IV ity of (PHENERGAN) 06:15: 06:12 Piggyback, [place] 12.5 mg in 00 :00 ONCE, 1 Medica l NaCl 0.9% dose, On Branch (NS) 50 mL Fri IV 05/04/22 piggyback at 0115, [facility] insulin Yes 26U 26 Units, Unive rs glargine 8-14 Subcutaneo ity o f (LANTUS 02:00: us, [facility], [place] U-100) 00 First dose Medical injection (after Branch 26 Units last modificati on) on 02/24/22 at 2100, Until Discontinu ed, Routine insulin 2021- No 24U 24 Units, Univ ers glargine 02-23- Subcutaneo ity of (LANTUS 20:38: 20:43 us, ONCE, [place] U-100) 00 :00 1 dose, On Medical injection Fri Branch 24 Units 02/23/22 at 1545, [facility] sennosides- Yes 1{tbl} 1 tablet, Univers docusate 02-23 Oral, ity of sodium 14:00: DAILY, [place] (SENOKOT-S) 00 First dose Me dical 8.6-50 mg on Fri Branch per tablet 02/23/22 at 1 tablet 0900, Until Discontinu ed, Routine polyethylen Yes 17g 17 g, [facility] 02-23 Oral, ity of 3350 powder 14:00: DAILY, [place] 17 g 00 First dose Medical on Fri Branch 02/23/22 at 0900, Until Discontinu ed, Routine insulin NPH No 16U 16 Units, Univers (HUMULIN N) 02-23 Subcutaneo i ty of injection 14:00: 17:23 us, [place] 16 Units 00 :36 QAM+HS, Medical First dose Branch (after last modificati on) on 02/23/22 at 0900, Until Discontinu ed, Routine Sliding Yes Subcutaneo Univ ers Scale 02-23 us, TID ity of Insulin - 13:00: MEALS+HS, [place] Lispro 00 First dose Medical (HumaLOG) + (after Branch Fsbg last Testing modificati on) on 02/23/22 at 0800, Until Discontinu ed, Routine insulin NPH No 8U 8 Units, U nivers (HUMULIN N) 02-2312 Subcutaneo i ty of injection 8 02:00: 12:34 us, QHS, [place] Units 00 :51 First dose Medical (after Branch last modificati on) on Libra 02/22/22 at 2100, Until Discontinu ed, Routine repaglinide 2021-0 Yes [id number] .5mg Take 1 Univers 0.5 mg 8-12 tablet by ity of tablet 00:00: mouth in [address] and 1 tablet at noon and 1 tablet in the evening. Take before meals. sodium 2021-0 Yes [id number] Apply to [place] hypochlorit 8-12 area(s) ity o f e 0.25% 00:00: daily. [address] repaglinide 2021-0 Yes [id number] .5mg Take 1 Univers 0.5 mg 8-12 tablet by ity of tablet 00:00: mouth in [address] and 1 tablet at noon and 1 tablet in the evening. Take before meals. sodium 2021-0 Yes [id number] Apply to [place] hypochlorit 8-12 area(s) ity o f e 0.25% 00:00: daily. [address] repaglinide 2021-0 Yes [id number] .5mg Take 1 Univers 0.5 mg 8-12 tablet by ity of tablet 00:00: mouth in [address] and 1 tablet at noon and 1 tablet in the evening. Take before meals. sodium 2021-0 Yes [id number] Apply to [place] hypochlorit 8-12 area(s) ity o f e 0.25% 00:00: daily. [address] repaglinide 2021-0 Yes [id number] .5mg Take 1 Univers 0.5 mg 8-12 tablet by ity of tablet 00:00: mouth in [address] and 1 tablet at noon and 1 tablet in the evening. Take before meals. sodium 2022-0 Yes [id number] Apply to [place] hypochlorit 8-12 area(s) ity o f e 0.25% 00:00: daily. [facility] 00 Medical Branch repaglinide 2022-0 Yes [id number] .5mg Take 1 Univers 0.5 mg 8-12 tablet by ity of tablet 00:00: mouth in [place] [address] the Medical morning [place] and 1 tablet at noon and 1 tablet in the evening. Take before meals. sodium 2022-0 Yes [id number] Apply to [place] hypochlorit 8-12 area(s) ity o f e 0.25% 00:00: daily. [facility] 00 Medical Branch repaglinide 2022-0 Yes [id number] .5mg Take 1 Univers 0.5 mg 8-12 tablet by ity of tablet 00:00: mouth in [place] [address] the Medical morning [place] and 1 tablet at noon and 1 tablet in the evening. Take before meals. sodium 2022-0 Yes [id number] Apply to [place] hypochlorit 8-12 area(s) ity o f e 0.25% 00:00: daily. [facility] 00 [facility] Branch repaglinide 2022-0 Yes [id number] .5mg Take 1 Univers 0.5 mg 8-12 tablet by ity of tablet 00:00: mouth in [place] [address] the [facility] morning [place] and 1 tablet at noon and 1 tablet in the evening. Take before meals. sodium 2022-0 Yes [id number] Apply to [place] hypochlorit 8-12 area(s) ity o f e 0.25% 00:00: daily. [place] [address] Medical Branch repaglinide 2022-0 Yes [id number] .5mg Take 1 Univers 0.5 mg 8-12 tablet by ity of tablet 00:00: mouth in [place] [address] the [facility] morning [place] and 1 tablet at noon and 1 tablet in the evening. Take before meals. sodium 2022-0 Yes [id number] Apply to [facility] [place] hypochlorit 8-12 area(s) ity o f e 0.25% 00:00: daily. [place] solution 00 Medical [place] repaglinide 2022-0 Yes [id number] .5mg Take 1 Univers 0.5 mg 8-12 tablet by ity of tablet 00:00: mouth in [place] [address] the [facility] morning [place] and 1 tablet at noon and 1 tablet in the evening. Take before meals. sodium 2022-0 Yes [id number] Apply to [place] hypochlorit 02-23 area(s) ity o f e 0.25% 00:00: daily. [place] solution 00 [facility] apixaban 5 2021- No 5mg Take 1 Univ ers mg tablet 02-23 tablet by ity of 00:00: 04:59 mouth in [place] 00 :00 the [facility] morning [place] and 1 tablet in the evening. Do all this for 30 days. Indication s: Symtomatic Superficia l Vein thrombosis insulin 2021- No [id number] 24U inject 24 Univers glargine 02-23 Units ity of 100 unit/mL 00:00: 04:59 under the [place] injection 00 :00 skin [facility] for 30 days. metFORMIN 2021- No [id number] 500mg Take 1 Univers 500 mg 02-23 tablet by ity of tablet 00:00: 04:59 mouth in [place] 00 :00 [facility] and 1 tablet in the evening. Take with meals. Do all this for 30 days. dulaglutide 2021- No [id number] .75mg inject 1 Univers (TRULICITY) 02-23 Pen under it y of 0.75 mg/0.5 00:00: 04:59 the skin [place] mL PnIj 00 :00 weekly for Medica l 30 days. Branch apixaban 5 2021- No 5mg Take 1 Univ ers mg tablet 02-23 tablet by ity of 00:00: 04:59 mouth in [place] 00 :00 [facility] and 1 tablet in the evening. Do all this for 30 days. Indication s: Symtomatic Superficia l Vein thrombosis insulin 2021- No [id number] 24U inject 24 Univers glargine 02-23 Units ity of 100 unit/mL 00:00: 04:59 under the [place] injection 00 :00 skin [facility] for 30 days. metFORMIN 2021- No [id number] 500mg Take 1 Univers 500 mg 02-23 tablet by ity of tablet 00:00: 04:59 mouth in [place] 00 :00 the Medical morning Branch and 1 tablet in the evening. Take with meals. Do all this for 30 days. dulaglutide 2021- No [id number] .75mg inject 1 Univers (TRULICITY) 02-23 Pen under it y of 0.75 mg/0.5 00:00: 04:59 the skin [place] mL PnIj 00 :00 weekly for Medica l 30 days. Branch apixaban 5 2021-2- No 5mg Take 1 Univ ers mg tablet 02-23 tablet by ity of 00:00: 04:59 mouth in [place] 00 :00 the Medical morning Branch and 1 tablet in the evening. Do all this for 30 days. Indication s: Symtomatic Superficia l Vein thrombosis insulin 2021- No [id number] 24U inject 24 Univers glargine 02-23 Units ity of 100 unit/mL 00:00: 04:59 under the [place] injection 00 :00 skin [facility] for 30 days. metFORMIN 2021- No [id number] 500mg Take 1 Univers 500 mg 02-23 tablet by ity of tablet 00:00: 04:59 mouth in [place] 00 :00 the Medical morning Branch and 1 tablet in the evening. Take with meals. Do all this for 30 days. dulaglutide 2021- No [id number] .75mg inject 1 Univers (TRULICITY) 02-23 Pen under it y of 0.75 mg/0.5 00:00: 04:59 the skin [place] mL PnIj 00 :00 weekly for Medica l 30 days. Branch apixaban 5 2021- No 5mg Take 1 Univ ers mg tablet 02-23 tablet by ity of 00:00: 04:59 mouth in [place] 00 :00 the Medical morning Branch and 1 tablet in the evening. Do all this for 30 days. Indication s: Symtomatic Superficia l Vein thrombosis insulin 2021- No [id number] 24U inject 24 Univers glargine 02-23 Units ity of 100 unit/mL 00:00: 04:59 under the [place] injection 00 :00 skin [facility] for 30 days. metFORMIN 2021- No [id number] 500mg Take 1 Univers 500 mg 02-23 tablet by ity of tablet 00:00: 04:59 mouth in [place] 00 :00 the [facility] Branch and 1 tablet in the evening. Take with meals. Do all this for 30 days. dulaglutide 2021- No [id number] .75mg inject 1 Univers (TRULICITY) 02-23 Pen under it y of 0.75 mg/0.5 00:00: 04:59 the skin [place] mL PnIj 00 :00 weekly for Medica l 30 days. Branch linezolid 2021- No [id number] 600mg Take 1 Univers 600 mg 02-23 tablet by ity of tablet 00:00: 04:59 mouth [place] 00 :00 every 12 [facility] ([facility]) [place] hours for 14 days. fluconazole 2021- No [id number] 400mg Take 2 Univers 200 mg 02-23 tablets by ity of tablet 00:00: 04:59 mouth in [place] 00 :00 the [facility] for 14 days. ciprofloxac 2021- No [id number] 500mg Take 2 Univers in HCl 250 02-23 tablets by it y of mg tablet 00:00: 04:59 mouth in [place] 00 :00 the [facility] and 2 tablets in the evening. Do all this for 14 days. linezolid 2021- No [id number] 600mg Take 1 Univers 600 mg 02-23 tablet by ity of tablet 00:00: 04:59 mouth [place] 00 :00 every 12 [facility] ([facility]) [place] hours for 14 days. fluconazole 2021- No [id number] 400mg Take 2 Univers 200 mg 02-23- tablets by ity of tablet 00:00: 04:59 mouth in [place] 00 :00 the [facility] for 14 days. ciprofloxac 2021- No [id number] 500mg Take 2 Univers in HCl 250 02-23 tablets by it y of mg tablet 00:00: 04:59 mouth in [place] 00 :00 the [facility] and 2 tablets in the evening. Do all this for 14 days. linezolid 0 2021- No [id number] 600mg Take 1 Univers 600 mg 8- 08-27 tablet by ity of tablet 00:00: 04:59 mouth [place] 00 :00 every 12 [facility] hours for 14 days. fluconazole 2021-0 2021- No [id number] 400mg Take 2 Univers 200 mg 8-12 08-27 tablets by ity of tablet 00:00: 04:59 mouth in [place] 00 :00 the [facility] Branch for 14 days. ciprofloxac 2021-0 2021- No [id number] 500mg Take 2 Univers in HCl 250 8-27 tablets by it y of mg tablet 00:00: 04:59 mouth in [place] 00 :00 the [facility] Branch and 2 tablets in the evening. Do all this for 14 days. linezolid 2021-0 2021- No [id number] 600mg Take 1 Univers 600 mg 8-06 21-27 tablet by ity of tablet 00:00: 04:59 mouth [place] 00 :00 every 12 [facility] hours for 14 days. fluconazole 2021-2021- No [id number] 400mg Take 2 Univers 200 mg 8-06 21-27 tablets by ity of tablet 00:00: 04:59 mouth in [place] 00 :00 the [facility] for 14 days. ciprofloxac 2021-0 2021- No [id number] 500mg Take 2 Univers in HCl 250 8-27 tablets by it y of mg tablet 00:00: 04:59 mouth in [place] 00 :00 the [facility] Branch and 2 tablets in the evening. Do all this for 14 days. gabapentin 2021-0 2021- No [id number] 300mg Take 1 Univers 300 mg 8- 08-20 capsule by ity of capsule 00:00: 04:59 mouth in [place] 00 :00 the [facility] Branch and 1 capsule at noon and 1 capsule in the evening. Do all this for 7 days. gabapentin 2021-0 2021- No [id number] 300mg Take 1 Univers 300 mg 8- 08-20 capsule by ity of capsule 00:00: 04:59 mouth in [place] 00 :00 the [facility] Branch and 1 capsule at noon and 1 capsule in the evening. Do all this for 7 days. gabapentin 2021- No [id number] 300mg Take 1 Univers 300 mg 02-23 capsule by ity of capsule 00:00: 04:59 mouth in [place] 00 :00 [facility] and 1 capsule at noon and 1 capsule in the evening. Do all this for 7 days. gabapentin 2021- No [id number] 300mg Take 1 Univers 300 mg 02-23 capsule by ity of capsule 00:00: 04:59 mouth in [place] 00 :00 [facility] and 1 capsule at noon and 1 capsule in the evening. Do all this for 7 days. sodium 2021- No [id number] [facility] hypochlorit 02-23 area(s) ity of e 0.25% 00:00: 00:00 daily. [place] solution 00 :00 [facility] repaglinide No [id number] .5mg Take 1 Univers 0.5 mg 02-23 tablet by ity of tablet 00:00: 00:00 mouth in [place] 00 :00 [facility] and 1 tablet at noon and 1 tablet in the evening. Take before meals. Do all this for 30 days. Sliding 2021- No Subcutaneo Uni vers Scale 02-22 , TID ity of Insulin - 22:00: 12:34 MEALS+HS, [place] Lispro 00 :51 First dose Medical (HumaLOG) + (after [place] Fsbg last Testing modificati on) on Libra 02/22/22 at 1700, Until Discontinu ed, Routine acetaminoph Yes 1000mg 1,000 mg, Univers en 8-11 Oral, Q8H, ity of (TYLENOL) 19:00: First dose [place] tablet 00 on Libra Medical 1,000 mg 02/22/22 at [facility] h 1400, Until Discontinu ed, Routine methocarbam Yes 500mg 500 mg, [place] oL 8-11 Oral, Q6H, ity of (ROBAXIN) 17:00: First dose [place] tablet 500 00 on Libra Medical mg 02/22/22 at Branch 1200, Until Discontinu ed, Routine Sliding No Subcutaneo Uni vers Scale 02-22 us, TID ity of Insulin - 17:00: 19:31 MEALS+HS, [place] Lispro 00 :30 First dose Medical (HumaLOG) + (after Branch Fsbg last Testing modificati on) on [facility] 02/22/22 at 1200, Until Discontinu ed, Routine insulin NPH Yes 24U 24 Units, U nivers (HUMULIN N) 02-22 Subcutaneo it y of injection 14:00: us, QAM, [place] 24 Units 00 First dose Medic al (after Branch last modificati on) on [facility] 02/22/22 at 0900, Until Discontinu ed, Routine insulin NPH 20U 20 Units, Univers (HUMULIN N) 02-22 Subcutaneo i ty of injection 14:00: 19:31 us, QAM, [place] 20 Units 00 :02 First dose Medic al (after Branch last modificati on) on [facility] 02/22/22 at 0900, Until Discontinu ed, Routine insulin Yes 5U 5 Units, Univer s lispro 02-22 Subcutaneo ity of (human) 13:45: us, TID [place] (HumaLOG 00 MEALS, Medical U-100) First dose Branch injection 5 (after Units last modificati on) on [facility] 02/22/22 at 0845, Until Discontinu ed, Routine apixaban Yes 5mg 5 mg, Univers (ELIQUIS) 02-22 Oral, BID, ity of tablet 5 mg 13:00: First dose [place] 00 on [facility] Medical 02/22/22 at Branch 0800, Until Discontinu ed, Routine
Indicatio ns: DVT/PE celecoxib Yes 100mg 100 mg, Univ ers (CELEBREX) 02-22 Oral, BID ity of capsule 100 13:00: MEALS, [place] mg 00 First dose Medical on [facility] Branch 02/22/22 at 0800, Until Discontinu ed, [...] Medica l last Branch modificati on) on Libra 02/22/22 at 0800, Until Discontinu ed, Routine linezolid [...] Yes 10U 10 Units, Unive rs lispro 8- Subcutaneo ity of (human) 22:00: us, TID [place] (HumaLOG 00 MEALS, Medical U-100) First dose Branch injection (after 10 Units last modificati on) on Sat02/21/22 at 1700, Until Discontinu ed, Routine insulin NPH Yes 20U 20 Units, U nivers (HUMULIN N) 8-10 Subcutaneo it y of injection 22:00: us, QPM, [place] 20 Units 00 First dose Medic al (after Branch last modificati on) on Sat02/21/22 at 1700, Until Discontinu ed, Routine insulin NPH 2021- No 20U 20 Units, Univers (HUMULIN N) 02-2111 Subcutaneo i ty of injection 22:00: 13:38 us, QPM, [place] 20 Units 00 :17 First dose Medic al (after Branch last modificati on) on Sat02/21/22 at 1700, Until Discontinu ed, Routine HYDROmorpho Yes 4mg 4 mg, Unive rs ne 8 Oral, ity of (DILAUDID) 15:00: TIDPRN, [place] [...] at 0800, Until Discontinu ed, Routine Sliding Subcutaneo Uni vers Scale 8-10 -11 us, TID ity of Insulin - 13:00: 13:39 MEALS+HS, [place] Lispro 00 :23 First dose Medical (HumaLOG) + (after Branch Fsbg last Testing modificati on) on Sat02/21/22 at 0800, Until Discontinu ed, Routine FENTanyl PF 2021- [...] ity o f (PF)) 17:54: 18:30 Push, [place] injection 44 :23 Q5MIN PRN, Medi efrain [...] [place] (SENSORCAIN 00 :05 02/20/22 at Med ical E MPF) 0.5 1200, Branch % (5 mg/mL) Intra-op [...] lactated 2021- No IV Univers ringers IV 8-09 08-09 Infusion, ity of infusion 16:25: 17:56 CONTINUOUS [...] ed, Routine insulin No 14U 14 Units, [facility] ers lispro 02-20 Subcutaneo ity of (human) 13:00: 12:44 us, TID [place] (HumaLOG 00 :50 MEALS, Medical U-100) First [...] at 1700, Until Discontinu ed, Routine HYDROmorpho 2021- No 4mg 4 mg, [facility] ers ne 02-19 Oral, ity of (DILAUDID) 16:30: 14:59 BIDPRN, [place] tablet 4 mg 00 :38 Starting Medi efrain on Sat02/19/22 at 1130, Until Sat02/21/22 at 0959, Routine, Pain (scale 7-10) insulin NPH 2021- No 36U 36 Units, Univers (HUMULIN N) [...] at 0800, Until Discontinu ed, Routine magnesium 2021- No 4g 4 g, IV [facility] ers sulfate in 02-19 Piggyback, it y of water 4 12:00: 15:57 ONCE, 1 [place] gram/50 mL 00 :00 dose, On Medic al (8 %) IV Sat02/19/22 Branc h Piggyback 4 at 0700, g Routine eravacyclin 2021- No 1mg/kg 123 mg (1 Univers e (XERAVA) 02-19 mg/kg ?123 it y of 123 mg [...] al (after Branch last modificati on) on Sat02/18/22 at 1700, Until Discontinu ed, Routine insulin No 18U 18 Units, Univ ers lispro 02-18 Subcutaneo ity of (human) 17:00: 13:15 us, TID [place] (HumaLOG 00 :02 MEALS, Medical U-100) First dose Branch injection (after 18 Units last modificati on) on [place] 02/18/22 at 1200, Until Discontinu ed, Routine insulin NPH No 37U 37 Units, Univers (HUMULIN N) 02-18 Subcutaneo i ty of injection 14:00: 14:15 us, QAM, [place] 37 Units 00 :14 First dose Medic al (after Branch last modificati on) on [place] 02/18/22 at 0900, Until Discontinu ed, Routine Sliding Subcutaneo Uni vers Scale 02-18 us, TID ity of Insulin - 02:00: 12:53 MEALS+HS, [place] Lispro 00 :44 First dose Medical (HumaLOG) + (after Branch Fsbg last Testing modificati on) on [facility] 02/17/22 at 2100, Until Discontinu ed, Routine HYDROmorpho No 2mg 2 mg, Univ ers ne 02-18 Oral, ity of (DILAUDID) 00:17: 16:23 Q8HPRN, [place] tablet 2 mg 00 :26 Starting Medi efrain on Sat Branch 02/17/22 at 1917, Until 02/19/22 at 1123, Routine, Pain (scale 7-10) insulin 2021- No 17U 17 Units, [facility] ers lispro 02-17 Subcutaneo ity of (human) 22:00: 14:15 us, TID [place] (HumaLOG 00 :14 MEALS, Medical U-100) First dose Branch injection (after 17 Units last modificati on) on [facility] 02/17/22 at 1700, Until Discontinu ed, Routine insulin NPH 2021- No 35U 35 Units, Univers (HUMULIN N) 02-17 Subcutaneo i ty of injection 22:00: 13:38 us, QPM, [place] 35 Units 00 :53 First dose Medic al (after Branch last modificati on) on 02/17/22 at 1700, Until Discontinu ed, Routine Sliding Subcutaneo Uni vers Scale 02-17 08-06 us, Q4H, ity of Insulin - 21:00: 22:06 First dose [place] Lispro 00 :35 (after Medical (HumaLOG) + last Branch Fsbg modificati Testing on) on 02/17/22 at 1600, Until Discontinu ed, Routine HYDROmorpho No 4mg 4 mg, Univ ers ne 02-17 08-07 Oral, ity of (DILAUDID) 17:24: 00:17 Q8HPRN, [...] solution 0900, Until Discontinu ed, [place] insulin No 12U 12 Units, [facility] ers lispro 02-17- Subcutaneo ity of (human) 14:00: 19:55 us, TIDPC, [place] (HumaLOG 00 :31 First dose Medic al U-100) (after Branch injection last 12 Units modificati on) on 02/17/22 at 0900, Until Discontinu ed, Routine insulin NPH No 26U 26 Units, Univers (HUMULIN N) 02-17 08- Subcutaneo i ty of injection 14:00: 19:55 us, QAM, [place] 26 Units 00 :31 First dose Medic al (after Branch last modificati on) on 02/17/22 at 0900, Until Discontinu ed, Routine Sliding 2021- No Subcutaneo Uni vers Scale 02-17 us, TID ity of Insulin - 13:00: 19:55 MEALS+HS, [place] Lispro 00 :31 First dose Medical (HumaLOG) + on Sat Branch Fsbg 02/17/22 at Testing 0800, Until Discontinu ed, Routine glucagon Yes 1mg 1 mg, Univers (GLUCAGEN 02-17 Intramuscu ity of DIAGNOSTIC 12:22: lar, PRN, [place] KIT) 35 Starting Medical injection 1 on Sat Branch mg 02/17/22 at 0722, Until Discontinu ed, SAHARA, Blood Glucose < or = 70 mg/dL and patient is unable to swallow or has mental changes. dextrose 50 0 Yes 25mL 25 mL, Univ ers % in water 02-17 Slow IV ity of (D50W) 12:22: Push, PRN, [place] injection 35 Starting Medica l 25 mL on Sat Branch 02/17/22 at 0722, Until Discontinu ed, SAHARA, Blood Glucose < or = 70 mg/dL and patient is unable to swallow or has mental status changes. glucagon Yes 1mg 1 mg, Univers (GLUCAGEN 02-17 Intramuscu ity of DIAGNOSTIC 12:22: lar, PRN, [place] KIT) 35 Starting Medical injection 1 on Sat Branch 02/17/22 at 0722, Until Discontinu ed, SAHARA, Blood Glucose < or = 70 mg/dL and patient is unable to swallow or has mental changes. dextrose 50 0 Yes 25mL 25 mL, Univ ers % in water 02-17 Slow IV ity of (D50W) 12:22: Push, PRN, [place] injection 35 Starting Medica l 25 mL on Sat Branch 02/17/22 at 0722, Until Discontinu ed, SAHARA, Blood Glucose < or = 70 mg/dL and patient is unable to swallow or has mental status changes. HYDROmorpho 2021- No .2mg 0.2 mg, Un ela ne 02-17 Slow IV ity of (DILAUDID) 01:49: 02:17 Push, PRN, [place] injection 34 :00 1 dose, Medical 0.2 mg Starting Branch on Sat02/16/22 at 204, Until Sat02/16/22 at 2116, Routine, Pain (scale 7-10)
U se approved by (Faculty): [facility] KCL 20 No 40meq 40 mEq, Univer s mEq/15 mL 02-16 Oral, ity of solution 40 23:30: 22:58 ONCE, 1 [place] mEq 00 :00 dose, On Medical Sat02/16/22 Branch at 1830, Routine Sliding Subcutaneo Uni vers Scale 02-16 us, Q4H, ity of Insulin - 22:15: 12:23 First dose [place] Lispro 00 :48 on Sat Medical (HumaLOG) + 02/16/22 at [facility] Fsbg 1715, Testing Until Discontinu ed, Routine insulin NPH No 22U 22 Units, Univers (HUMULIN N) 02-16 Subcutaneo i ty of injection 22:00: 19:55 us, QPM, [place] 22 Units 00 :31 First dose Medic al (after Branch last modificati on) on Sat02/16/22 at 1700, Until Discontinu ed, Routine magnesium No 4g 4 g, IV Univ ers sulfate in 02-16 Piggyback, it y of water 4 19:15: 20:22 ONCE, 1 [place] gram/50 mL 00 :00 dose, On Medic al (8 %) IV Sat02/16/22 Branc h Piggyback 4 at 1415, g Routine HYDROmorpho 2021- No .2mg 0.2 mg, Un [...] injection 6 last Units modificati on) on Sat02/16/22 at 0900, Until Discontinu ed, Routine insulin NPH 2021- No 22U 22 Units, Univers (HUMULIN N) 02-16 Subcutaneo i ty of injection 14:00: 21:37 us, QAM, [place] 22 Units 00 :09 First dose Medic al on Fri Branch 02/16/22 at 0900, Until Discontinu ed, Routine HYDROmorpho No .2mg 0.2 mg, Un ela ne 02-16 Slow IV ity of (DILAUDID) 08:15: 07:57 Push, [place] injection 00 :00 ONCE, 1 Medical 0.2 mg dose, On Branch Sat02/16/22 at 0315, Routine
Use approved by (Faculty): [facility] HYDROcodone 2021- No 1{tbl} 1 tablet, Univers -acetaminop 02-16 Oral, [...] on Libra Medical (humaLOG) + 02/15/22 at [facility] Fsbg 1999, Testing Until Discontinu ed, Routine meropenem No 1000mg 1,000 mg, Univers (MERREM) 02-16 IV ity of 1,000 mg in 00:15: [...] 1 Medical 0.2 mg dose, On Branch [facility] 02/15/22 at 1900, Routine
Use approved by (Faculty): [facility] HYDROmorpho 2021- No .2mg 0.2 mg, Un ela ne 02-15 Slow IV ity of (DILAUDID) 19:30: 18:59 Push, [place] injection 00 :00 ONCE, 1 Medical 0.2 mg dose, On Branch [facility] 02/15/22 at 1430, Routine
Use approved by (Faculty): [facility] cholestyram 2021- No Topical Un ela ine-nystati 02-15 (Apply To it y of n-zinc 18:29: 12:46 Affected [place] oxide 12 :35 Areas), Medical ointment PRN, Branch 1:1:1 Starting (COMPOUNDED on Libra ) 02/15/22 at 1329, Until 02/19/22 at 0746, Routine, Wound care, Cuts, abrasions, and skin ulcers iopamidol 2021- No [id number] 60mL 60 mL, Univers (ISOVUE 02-15 Intravenou ity o f 370-500 mL) 17:25: 05:25 s, ONCE, 1 [place] injection 00 :00 dose, On Medica l 60 mL [facility] 02/15/22 Branch at 1230, Routine meropenem 2021- No 1000mg 1,000 mg, Univers (MERREM) 02-15 IV ity of 1,000 mg in 16:45: 20:14 Piggyback, [place] NaCl 0.9% 00 :00 ONCE, 1 Medical (NS) 50 mL dose, On Bran h MINI-BAG Libra 02/15/22 at 1145, Administer over 30 Minutes, 50 mL
R estricted use approved by: [facility] 8TH FLOOR
R keegan for Anti-Infec tive: Documented Infection< br>Documen lester Infection Site: Urine
D uration of Therapy: 7 days pantoprazol 2021-0 Yes 40mg 40 mg, Univ ers e 02-15 Oral, ity of (PROTONIX) 14:00: DAILY, [place] EC tablet 00 First dose Medi efrain 40 mg on Libra Branch 02/15/22 at 0900, Until Discontinu ed, Routine
Indicatio n for use: None of the above pantoprazol 2021-0 Yes 40mg 40 mg, Univ ers e 02-15 Oral, ity of (PROTONIX) 14:00: DAILY, [place] EC tablet 00 First dose Medi efrain 40 mg on Libra Branch 02/15/22 at 0900, Until Discontinu ed, Routine
Indicatio n for use: None of the above heparin 2021-0 Yes 5000U 5,000 Univers (porcine) 02-15 Units, ity of injection 13:00: Subcutaneo [place] [...] 0800, Until Discontinu ed, Routine NaCl 0.9% 2021-0 Yes 10mL 10 mL, Univer s (NS) 8 Slow IV ity of injection 11:28: Push, [...] Discontinu ed, Routine, Local anesthesia NaCl 0.9% Yes 10mL 10 mL, Univer [...] ity of 1,000 mg in 05:30: 06:00 PigOmega, [place] NaCl 0.9% 00 :00 ONCE, 1 Medical (NS) 50 mL dose, On Bran h MINI-BAG Libra 02/15/22 at 0030, Administer over 30 Minutes, 50 mL
R keegan for Anti-Infec tive: Empiric Therapy for Suspected Infection< br>Empiric Therapy Site: Urine
D uration of therapy: 72 hours NaCl 0.9% 0 2- No 1000mL at 999 Uni vers (NS) bolus 02-15 08-04 mL/hr, ity of infusion 05:30: 07:58 1,000 mL, Tim as 1,000 mL 00 :00 IV Medical Infusion, Branch ONCE, 1 dose, On Libra 02/15/22 at 0030, [place] NaCl 0.9% 2021- No 1000mL at 999 Uni vers (NS) bolus 02-15 08-04 mL/hr, ity of infusion 05:15: 07:58 1,000 mL, Tim as 1,000 mL 00 :00 IV Medical Infusion, Branch ONCE, 1 dose, On Libra 02/15/22 at 0015, SAHARA D5W 0.45% 2021- No IV Univers NaCl 02-15- Infusion, ity of (1/2NS) 1 L 04:53: [...] at 1415, Until Discontinu ed, Routine insulin 2022-0 Yes 7U 7 Units, Univer s lispro [...] Discontinu ed, Routine insulin NPH 2021- No [id number] 50U inject 50 Univers and regular 7-30 08-30 Units ity of human 70-30 00:00: 04:59 under the [place] 100 unit/mL 00 :00 skin every Me dical (70-30) morning Branch injection and evening for 30 days. proMETHazin 2021- No [id number] 12.5mg Insert 1 Univers e 12.5 mg 7-30 08-30 Suppositor ity of suppository 00:00: 04:59 y into Tim as 00 :00 rectum Medical every 6 Branch (six) hours as needed for Nausea and Vomiting (N/V) for up to 30 days. proMETHazin 2021- No [id number] 12.5mg Take 0.5 Univers e 25 mg 7-30 08-30 tablets by ity o f tablet 00:00: 04:59 mouth [place] 00 :00 every 4 Medical (four) Branch hours as needed for Nausea and Vomiting (N/V) for up to 30 days. insulin NPH 2021- No [id number] 50U inject 50 Univers and regular 7-30 08-30 Units ity of human 70-30 00:00: 04:59 under the [place] 100 unit/mL 00 :00 skin every Me dical (70-30) morning Branch injection and evening for 30 days. proMETHazin 2021- No [id number] 12.5mg Insert 1 Univers e 12.5 mg 7-30 08-30 Suppositor ity of suppository 00:00: 04:59 y into Tim as 00 :00 rectum Medical every 6 Branch (six) hours as needed for Nausea and Vomiting (N/V) for up to 30 days. proMETHazin 2021- No [id number] 12.5mg Take 0.5 Univers e 25 mg 7-30 08-30 tablets by ity o f tablet 00:00: 04:59 mouth [place] 00 :00 every 4 Medical (four) Branch hours as needed for Nausea and Vomiting (N/V) for up to 30 days. insulin NPH 2021- No [id number] 50U inject 50 Univers and regular 7-30 08-30 Units ity of human 70-30 00:00: 04:59 under the [place] 100 unit/mL 00 :00 skin every Me dical (70-30) morning Branch injection and evening for 30 days. proMETHazin 2021- No [id number] 12.5mg Insert 1 Univers e 12.5 mg 7-30 08-30 Suppositor ity of suppository 00:00: 04:59 y into Tim as 00 :00 rectum Medical every 6 Branch (six) hours as needed for Nausea and Vomiting (N/V) for up to 30 days. proMETHazin 2021- No [id number] 12.5mg Take 0.5 Univers e 25 mg 7-30 08-30 tablets by ity o f tablet 00:00: 04:59 mouth [place] 00 :00 every 4 Medical (four) Branch hours as needed for Nausea and Vomiting (N/V) for up to 30 days. insulin NPH 2021- No [id number] 50U inject 50 Univers and regular 7-30 08-30 Units ity of human 70-30 00:00: 04:59 under the [place] 100 unit/mL 00 :00 skin every Me dical (70-30) morning Branch injection and evening for 30 days. proMETHazin 2021- No [id number] 12.5mg Insert 1 Univers e 12.5 mg 7-30 08-30 Suppositor ity of suppository 00:00: 04:59 y into Tim as 00 :00 rectum Medical every 6 Branch (six) hours as needed for Nausea and Vomiting (N/V) for up to 30 days. proMETHazin 2021- No [id number] 12.5mg Take 0.5 Univers e 25 mg 7-30 08-30 tablets by ity o f tablet 00:00: 04:59 mouth [place] 00 :00 every 4 Medical (four) Branch hours as needed for Nausea and Vomiting (N/V) for up to 30 days. insulin NPH 2021- No [id number] 50U inject 50 Univers and regular 7-30 08-30 Units ity of human 70-30 00:00: 04:59 under the [place] 100 unit/mL 00 :00 skin every Me dical (70-30) morning Branch injection and evening for 30 days. proMETHazin 2021- No [id number] 12.5mg Insert 1 Univers e 12.5 mg 7-30 08-30 Suppositor ity of suppository 00:00: 04:59 y into Tim as 00 :00 rectum Medical every 6 Branch (six) hours as needed for Nausea and Vomiting (N/V) for up to 30 days. proMETHazin 2021- No [id number] 12.5mg Take 0.5 Univers e 25 mg 7-30 08-30 tablets by ity o f tablet 00:00: 04:59 mouth [place] 00 :00 every 4 Medical (four) Branch hours as needed for Nausea and Vomiting (N/V) for up to 30 days. proMETHazin 2021- No [id number] 12.5mg Insert 1 Univers e 12.5 mg 7-30 08-30 Suppositor ity of suppository 00:00: 04:59 y into Tim as 00 :00 rectum Medical every 6 Branch (six) hours as needed for Nausea and Vomiting (N/V) for up to 30 days. proMETHazin 2021- No [id number] 12.5mg Take 0.5 Univers e 25 mg 7-30 08-30 tablets by ity o f tablet 00:00: 04:59 mouth [place] 00 :00 every 4 Medical (four) Branch hours as needed for Nausea and Vomiting (N/V) for up to 30 days. proMETHazin 2021- No [id number] 12.5mg Insert 1 Univers e 12.5 mg 7-30 08-30 Suppositor ity of suppository 00:00: 04:59 y into Tim as 00 :00 rectum Medical every 6 Branch (six) hours as needed for Nausea and Vomiting (N/V) for up to 30 days. proMETHazin 2021- No [id number] 12.5mg Take 0.5 Univers e 25 mg 7-30 08-30 tablets by ity o f tablet 00:00: 04:59 mouth [place] 00 :00 every 4 Medical (four) Branch hours as needed for Nausea and Vomiting (N/V) for up to 30 days. proMETHazin 2021- No [id number] 12.5mg Insert 1 Univers e 12.5 mg 7-30 08-30 Suppositor ity of suppository 00:00: 04:59 y into Tim as 00 :00 rectum Medical every 6 Branch (six) hours as needed for Nausea and Vomiting (N/V) for up to 30 days. proMETHazin 2021- No [id number] 12.5mg Take 0.5 Univers e 25 mg 7-30 08-30 tablets by ity o f tablet 00:00: 04:59 mouth [place] 00 :00 every 4 Medical (four) Branch hours as needed for Nausea and Vomiting (N/V) for up to 30 days. proMETHazin 2021- No [id number] 12.5mg Insert 1 Univers e 12.5 mg 7-30 08-30 Suppositor ity of suppository 00:00: 04:59 y into Tim as 00 :00 rectum Medical every 6 Branch (six) hours as needed for Nausea and Vomiting (N/V) for up to 30 days. proMETHazin 2021- No [id number] 12.5mg Take 0.5 Univers e 25 mg 7-30 08-30 tablets by ity o f tablet 00:00: 04:59 mouth [place] 00 :00 every 4 Medical (four) Branch hours as needed for Nausea and Vomiting (N/V) for up to 30 days. insulin NPH 2021- No [id number] 50U inject 50 Univers and regular 7-30 [...] 1200, Until Discontinu ed, Routine HYDROmorphO 2021- No 1mg 1 mg, Univ ers ne 02-09 Intravenou ity of (DILAUDID) 16:54: 16:53 s, Q6HPRN, [place] injection 1 28 :28 Starting Medi efrain mg on Sat02/09/22 at 1154, Until 02/11/22 at 1153, Routine, Breakthrou gh pain only
Us e approved by (Faculty): [facility] PROVIDER insulin 2021- No 35U 35 Units, [facility] ers glargine 02-09 Subcutaneo ity of (LANTUS [...] Starting Medical on Sat Branch 02/08/22 at 2003, Until Discontinu ed, Routine, line maintenanc e lidocaine Yes 5mL 5 mL, Univers 1% (PF) 02-09 Subcutaneo ity of (XYLOCAINE) 01:04: us, PRN, [place] injection 5 34 Starting Medi efrain mL on Sat Branch 02/08/22 at 2003, Until Discontinu ed, Routine, Local anesthesia nystatin Yes Topical, Unive rs (NYSTOP) 02-09 BID, First ity o f powder 01:00: dose on [place] 00 [facility] Medical 02/08/22 at Branch 2000, Until Discontinu ed, Routine Sliding 2022-0 Yes Subcutaneo Univ ers Scale 02-08 us, TID ity of Insulin - 22:00: MEALS+HS, [place] Lispro 00 First dose Medical (HumaLOG) + (after Branch Fsbg last Testing modificati on) on Libra 02/08/22 at 1700, Until Discontinu ed, Routine insulin 2021- No 3U 3 Units, Unive rs lispro 02-08 07-29 Subcutaneo ity of (human) 22:00: 14:02 us, TID [place] (HumaLOG 00 :21 MEALS, Medical U-100) First [...] 7-10) lactated 2021- No 1000mL at 100 [facility] ers ringers IV 02-08 07-30 mL/hr, ity of infusion 18:30: 19:10 1,000 mL, [place] 1,000 mL 00 :52 IV Medical Infusion, Branch CONTINUOUS , Starting on Libra 02/08/22 at 1330, Until 02/10/22 at 1410, Routine fluconazole 2021- No 200mg 200 mg, U nivers (DIFLUCAN) [...] Until Libra 02/08/22 at 0847, Routine proMETHazin 2021- No 12.5mg 12.5 mg, Univers e 02-08 IV ity of (PHENERGAN) 02:15: 01:35 [place], [place] 12.5 mg in 00 :00 ONCE, 1 Medica l NaCl 0.9% dose, On Branch (NS) 50 mL Wed IV 02/07/22 at piggyback 2115, Routine insulin 2021- No 10U 10 Units, Univ ers lispro 02-08 Subcutaneo ity of (human) 01:30: 00:44 , ONCE, [place] (HumaLOG 00 :00 1 dose, On Medic al U-100) Wed Branch injection 02/07/22 at 10 Units 2030, [place] ertapenem 2021- No 1000mg 1,000 mg, [...] months HYDROmorphO 2021- No 1mg 1 mg, Univ ers ne 02-08 Intravenou ity of (DILAUDID) 01:01: 19:45 s, Q4HPRN, [place] injection 1 21 :38 Starting Medi efrain [...] ed, Routine pantoprazol Yes 40mg 40 mg, Univ ers e 02-08 Oral, ity of (PROTONIX) 00:30: DAILY, [place] EC tablet 00 First dose Medi efrain 40 mg on Sat Branch 02/07/22 at 1930, Until Discontinu ed, Routine FENTanyl PF 2021- No 50ug 50 mcg, Un ela (SUBLIMAZE 02-07 Intramuscu it y of (PF)) 22:51: 01:01 lar, [place] injection 14 :59 Q4HPRN, Medical 50 mcg [...] on Sat Medical 1,000 mg 02/07/22 at [facility] h 1615, Until Discontinu ed, Routine FENTanyl [...] or has mental status changes. FENTanyl PF 2021- No 25ug 25 mcg, [...] doses, Medical mEq/100 mL First dose Bra [facility] RTU IVPB 20 on Sat mEq [...] 200mg at 100 Un ela (DIFLUCAN) 02-07 0728 mL/hr, IV ity of Piggyback 13:45: 00:25 [...] Medical RTU 10 mEq First dose Bra nc on Sat02/07/22 at 0700, Last dose on [...] 1 Medical 50 mcg dose, On Branch Sat02/06/22 at 2315, Routine cefTRIAXone 2021- No 1000mg 1,000 mg, Univers (ROCEPHIN) 02-07 Intravenou it y of 1,000 mg in 04:00: 06:06 s, ONCE, 1 [place] NaCl 0.9% 00 :00 dose, On Medica [...] Medical Infusion, Branch ONCE, 1 dose, On Sat02/06/22 at 2200, STAT insulin 2021- No 10U 10 Units, Univ ers regular 02-07 Subcutaneo ity o f human 01:30: 00:37 us, ONCE, [place] (HUMULIN R) 00 :00 1 dose, On Me dical injection Tue Branch 10 Units 02/06/22 at 2030, Routine FENTanyl PF 2021- No 50ug 50 mcg, Un ela (SUBLIMAZE 02-07 Slow IV ity o f (PF)) 01:30: 00:28 Push, [place] injection 00 :00 ONCE, 1 Medical 50 mcg dose, On Branch 02/06/22 at 2030, Routine NaCl 0.9% 2021- No 1000mL at 999 Uni vers (NS) bolus 02-07 mL/hr, ity of infusion 00:30: 02:09 1,000 mL, Tim as 1,000 mL 00 :00 IV Medical Infusion, Branch ONCE, 1 dose, On 02/06/22 at 1930, STAT iopamidol 2021- No [id number] 65mL 65 mL, Univers (ISOVUE 01-27 [id number] Intravenou ity of 370-500 mL) 02:29: 02:45 s, ONCE, 1 [place] injection 00 :00 dose, On Medica l 65 mL Fri Branch 01/26/22 at 2145, Routine FENTanyl PF 2021- No 150ug 150 mcg, Univers (SUBLIMAZE 01-27 Slow IV ity o f (PF)) 01:32: 01:44 Push, [place] injection 00 :00 ONCE, 1 Medical 150 mcg dose, On Branch 01/26/22 at 2044, Routine FENTanyl PF 2021- No 50ug 50 mcg, Un ela (SUBLIMAZE 01-27 Slow IV ity o f (PF)) 00:30: 23:32 Push, [place] injection 00 :00 ONCE, 1 Medical 50 mcg dose, On Branch 01/26/22 at 1930, Routine insulin 2021- No 10U 10 Units, Univ ers regular 01-27 Subcutaneo ity o f human 00:30: 23:28 , ONCE, [place] (HUMULIN R) 00 :00 1 dose, On Me dical injection Fri Branch 10 Units 01/26/22 at 193, Routine clindamycin 2021- No [id number] 600mg Take 2 Univers 300 mg 01-26 [id number] capsules ity of capsule 00:00: 04:59 by mouth 4 Tim as 00 :00 (four) Medical times [place] daily for 7 days. clindamycin 2021- No [id number] 600mg Take 2 Univers 300 mg 01-26 [id number] capsules ity of capsule 00:00: 04:59 by mouth 4 Tim as 00 :00 (four) Medical times [place] daily for 7 days. insulin NPH 2021- No 8U 8 Units, U nivers and regular 01-17-06 Subcutaneo i ty of human 70-30 12:30: 11:30 us, ONCE, [place] (70-30 00 :00 1 dose, On Medical U-100 01/17/22 Branch INSULIN) at 0730, 100 unit/mL [place] (70-30) injection 8 Units insulin Yes [id number] 20U inject 20 U nivers glargine 7-02 Units ity of 100 unit/mL 00:00: under the [place] injection 00 skin Medical daily. Branch insulin Yes [id number] 20U inject 20 U nivers glargine 7-02 Units ity of 100 unit/mL 00:00: under the [place] injection 00 skin Medical daily. Branch insulin Yes [id number] 20U inject 20 U nivers glargine 7-02 Units ity of 100 unit/mL 00:00: under the [place] injection 00 skin Medical daily. Branch insulin Yes [id number] 20U inject 20 U nivers glargine 7-02 Units ity of 100 unit/mL 00:00: under the [place] injection 00 skin Medical daily. Branch insulin 2021- No [id number] 20U inject 20 Univers glargine 01-13 07-30 Units ity of 100 unit/mL 00:00: 00:00 under the [place] injection 00 :00 skin Medical daily. Branch insulin 2021- No [id number] 20U inject 20 Univers glargine 01-13 07-30 [...] Until Discontinu ed, Routine insulin 2021- No [id number] 26U inject 26 Univers lispro, 01-12 08 Units ity of human, 100 00:00: 04:59 under the [place] unit/mL 00 :00 skin 3 Medical injection (three) Branch times daily before meals for 30 days. insulin 2021- No [id number] 26U inject 26 Univers lispro, 01-12 08- Units ity of human, 100 00:00: 04:59 under the [place] unit/mL 00 :00 skin 3 Medical injection (three) Branch times daily before meals for 30 days. insulin 2021- No [id number] 26U inject 26 Univers lispro, 01-12 08 Units ity of human, 100 00:00: 04:59 under the [place] unit/mL 00 :00 skin 3 Medical injection (three) Branch times daily before meals for 30 days. insulin 2021- No [id number] 26U inject 26 Univers lispro, 01-12 08-01 Units ity of human, 100 00:00: 04:59 under the [place] unit/mL 00 :00 skin 3 Medical injection (three) Branch times daily before meals for 30 days. insulin 2021- No [id number] 26U inject 26 Univers lispro, 01-12 07-30 Units ity of human, 100 00:00: 00:00 under the [place] unit/mL 00 :00 skin 3 Medical injection (three) Branch times daily before meals for 30 days. insulin 2021- No [id number] 26U inject 26 Univers lispro, 01-12 07-30 [...] No 10U 10 Units, Univ ers glargine 6-30 06-30 Subcutaneo ity of (LANTUS 14:00: 17:40 us, DAILY, Tim [place] U-100) 00 :01 First dose Medical injection on Libra Branch 10 Units 01/11/22 at 0900, Until Discontinu ed, Routine insulin Yes 52U 52 Units, Unive rs glargine 6-30 Subcutaneo ity o f (LANTUS 02:00: us, [facility], [place] U-100) 00 First dose [...] al (NS) 50 mL First dose Bra [facility] MINI-BAG on Sat01/10/22 at 0800, Until Discontinu ed, Administer over 30 Minutes, 50 mL
Reas on for Anti-Infec tive: Documented Infection< br>Documen lester Infection Site: Urine
D uration of Therapy: 7 days Sliding 2021- No Subcutaneo Uni vers Scale 01-10 us, TID ity of Insulin - 13:00: 15:19 MEALS+HS, [place] Lispro 00 :51 First dose Medical (HumaLOG) + on Sat Branch Fsbg 01/10/22 at Testing 0800, Until Discontinu ed, Routine insulin No 15U 15 Units, Univ ers lispro [...] (scale 7-10)
U se approved by (Faculty): [facility] PROVIDER NaCl 0.9% No 1000mL at 999 Uni [...] 01-10 Oral, ity of (TYLENOL) 10:52: Q6HPRN, [place] tablet 650 33 Starting Medic al mg on Sat Branch 01/10/22 at 0552, Until Discontinu ed, Routine, Pain (scale 1-3) NaCl 0.9% 2021- No 1000mL at 999 Uni vers (NS) bolus 01-10 mL/hr, ity of infusion 09:00: 08:10 1,000 mL, Tim [place] 1,000 mL 00 :00 IV Medical Infusion, [place] ONCE, 1 dose, On Sat01/10/22 at 0400, STAT FENTanyl PF 2021- No 50ug 50 mcg, Un ela (SUBLIMAZE 01-10 Slow IV ity o f (PF)) 08:22: 08:27 Push, [place] injection 00 :00 ONCE, 1 Medical 50 mcg dose, On Branch Sat01/10/22 at 0330, Routine insulin 2021- No 10U 10 Units, Univ ers regular 01-10 Slow IV ity of human 07:00: 05:53 Push, [place] (HUMULIN R) 00 :00 ONCE, 1 Medic al injection dose, On Branch 10 Units 01/10/22 at 0200, STAT FENTanyl PF 2021- No 50ug 50 mcg, Un ela (SUBLIMAZE 01-10 Slow IV ity o f (PF)) 04:15: 04:04 Push, [place] injection 00 :00 ONCE, 1 Medical 50 mcg dose, On Branch e 01/09/22 at 2315, STAT NaCl 0.9% 1000mL at 999 Uni vers (NS) bolus 01-10 mL/hr, ity of infusion 04:00: 05:53 1,000 mL, Tim [place] 1,000 mL 00 :00 IV Medical Infusion, [place] ONCE, 1 dose, On Sat01/09/22 at 2300, STAT insulin No 10U 10 Units, Univ ers regular 01-10 Slow IV ity of human 04:00: 03:48 Push, [place] (HUMULIN R) 00 :00 ONCE, 1 Medic al injection dose, On Branch 10 Units Sat01/09/22 at 2300, STAT amLODIPine 2021- No [id number] 10mg Take 1 Univers 10 mg 6-26 07-30 tablet by ity of tablet 00:00: 00:00 mouth [place] 00 :00 daily for Medical 30 days. [place] amLODIPine No [id number] 10mg Take 1 Univers 10 mg 6-26 07-30 tablet by ity of tablet 00:00: 00:00 mouth [place] 00 :00 daily for Medical 30 days. [place] amLODIPine No [id number] 10mg Take 1 Univers 10 mg 6-26 07-27 tablet by ity of tablet 00:00: 04:59 mouth [place] 00 :00 daily for Medical 30 days. [place] amLODIPine 2021- No [id number] 10mg Take 1 Univers 10 mg 6-26 07-27 tablet by ity of tablet 00:00: 04:59 mouth [place] 00 :00 daily for Medical 30 days. [place] amLODIPine No [id number] 10mg Take 1 Univers 10 mg 6-26 07-27 tablet by ity of tablet 00:00: 04:59 mouth [place] 00 :00 daily for Medical 30 days. [place] amLODIPine No [id number] 10mg Take 1 Univers 10 mg 6-26 07-27 tablet by ity of tablet 00:00: 04:59 mouth [place] 00 :00 daily for Medical 30 days. [place] amLODIPine 2021- No [id number] 10mg Take 1 Univers 10 mg -06 02- tablet by ity of tablet 00:00: 04:59 mouth [place] 00 :00 daily for Medical 30 days. Branch amLODIPine 2021- No [id number] 10mg Take 1 Univers 10 mg -06 02-27 tablet by ity of tablet 00:00: 04:59 mouth [place] 00 :00 daily for Medical 30 days. Branch amLODIPine 2021- No [id number] 10mg Take 1 Univers 10 mg -06 02- tablet by ity of tablet 00:00: 04:59 mouth [place] 00 :00 daily for Medical 30 days. Branch HYDROmorpho No .5mg 0.5 mg, Un ela ne 01-06- Slow IV ity of (DILAUDID) 18:00: 17:11 Push, [place] injection 00 :00 ONCE, 1 Medical 0.5 mg dose, On Branch [facility] 01/06/22 at 1300, Routine
Use approved by (Faculty): ADC PROVIDER cefTRIAXone Yes 1000mg 1,000 mg, Univers (ROCEPHIN) 01-06 IV ity of 1,000 mg in 15:00: Piggyback, [place] NaCl 0.9% 00 Q24H ABX, Medic al (NS) 50 mL First dose Bra [facility] MINI-BAG on 01/06/22 at 1000, Until Discontinu ed, Administer over 30 Minutes, 50 mL
Reas on for Anti-Infec tive: Documented Infection< br>Documen lester Infection Site: Urine
D uration of Therapy: 7 days fluconazole Yes 200mg 200 mg, Un ela (DIFLUCAN) 01-06 Oral, ity of tablet 200 14:00: DAILY, [place] mg 00 First dose Medical on [facility] 01/06/22 at 0900, Until Discontinu ed, SAHARA
Re ason for Anti-Infec tive: Documented Infection< br>Documen lester Infection Site: Urine
D uration of Therapy: 7 days Sliding Yes Subcutaneo Univ ers Scale - us, TID ity of Insulin - 13:00: MEALS+HS, [place] Lispro 00 First dose Medical (HumaLOG) + on Sat [place] [facility] 01/06/22 at Testing 0800, Until Discontinu ed, Routine hydromorpho 2021- No 4ug Take 4 mcg Univers ne [...] ity of bolus 05:50: PRN - SEE [place] infusion 51 INSTRUCTIO Medic al 250 mL [...] Subcutaneo ity o f (LANTUS 02:00: us, [facility], [place] U-100) 00 First dose Medical injection on Sat Branch 52 Units 01/05/22 at 2100, Until Discontinu ed, Routine Sliding 2021- No Subcutaneo Uni vers Scale 6- 06-25 us, TID ity of Insulin - 02:00: 05:50 MEALS+HS, [place] Lispro 00 :40 First dose Medical (HumaLOG) + on Fri Branch [facility] 01/05/22 at Testing 2100, Until Discontinu ed, Routine ciprofloxac 2021- No [id number] 500mg Take 1 Univers in HCl 500 01-06-06 tablet by ity of mg tablet 00:00: 04:59 mouth [place] 00 :00 every 12 Medical (twelve) Branch hours for 10 days. ciprofloxac 2021- No [id number] 500mg Take 1 Univers in HCl 500 01-06- tablet by ity of mg tablet 00:00: 04:59 mouth [place] 00 :00 every 12 Medical (twelve) Branch hours for 10 days. ciprofloxac 2021- No [id number] 500mg Take 1 Univers in HCl 500 01-06- tablet by ity of mg tablet 00:00: 04:59 mouth [place] 00 :00 every 12 Medical (twelve) Branch hours for 10 days. HYDROmorpho 2021- No [id number] 4mg Take 1 Uni vers ne 4 mg -25 -03 tablet by ity of tablet 00:00: [...] Indication s: acute pain ciprofloxac 2021- No [id number] 500mg Take 1 Univers in HCl 500 [...] :00 dose, On Medi efrain mg Sat [place] 01/05/22 at 1715, Routine
Use approved by (Faculty): ADC PROVIDER enoxaparin 0 Yes 40mg 40 mg, Unive rs (LOVENOX) 01-05 Subcutaneo ity of injection 22:00: us, DAILY, [place] 40 mg 00 First dose Medical on Sat01/05/22 at 1700, Until Discontinu ed, Routine glucagon 2021-0 Yes 1mg 1 mg, Univers (GLUCAGEN 01-05 Intravenou ity of DIAGNOSTIC 21:57: s, PRN - [place] KIT) 53 SEE Medical injection 1 INSTRUCTIO Br anch mg NS, Starting on Sat01/05/22 at 1657, Until Discontinu ed, Routine, hypoglycem ia glucagon 2021-0 Yes 1mg 1 mg, Univers (GLUCAGEN 24 Intramuscu ity of DIAGNOSTIC 21:57: lar, PRN, [place] KIT) 44 Starting Medical injection 1 on Sat Branch 01/05/22 at 1657, Until Discontinu ed, SAHARA, Blood Glucose < or = 70 mg/dL and patient is unable to swallow or has mental changes. HYDROmorpho 2021-0 Yes 4mg 4 mg, Unive rs ne 01-05 Oral, ity of (DILAUDID) 13:00: Q12H, [place] tablet 4 mg 00 First dose Me dical on Sat Branch 01/05/22 at 0800, Until Discontinu ed insulin Yes 15U 15 Units, Unive rs lispro 01-05 Subcutaneo ity of (human) 12:30: us, TIDAC, [place] (HumaLOG 00 First dose Medic al U-100) on Fri Branch injection 01/05/22 at 15 Units 0730, Until Discontinu ed, Routine amLODIPine Yes 10mg 10 mg, Unive rs (NORVASC) 01-05 Oral, ity of tablet 10 08:45: DAILY, [place] mg 00 First dose Medical on Sat Branch 01/05/22 at 0345, Until Discontinu ed, Routine ertapenem No 1000mg 1,000 mg, Univers (INVANZ) 01-0525 IV ity of 1,000 mg in 08:45: 13:51 Piggyback, [place] NaCl 0.9% 00 :26 Q24H ABX, Medic al (NS) 50 mL First dose Bra msh MINI-BAG on Sat01/05/22 at 0345, Until Discontinu [...] 01-05 Oral, ity of (TYLENOL) 07:37: Q6HPRN, [place] tablet 650 37 Starting Medic al mg on Sat Branch 01/05/22 at 0237, Until Discontinu ed, Routine, Pain (scale 1-3) iopamidol 2021- No [id number] 100mL 100 mL, Univers (ISOVUE 01-05 Intravenou ity o f 370-500 mL) 06:15: 05:05 s, ONCE, 1 [place] injection 00 :00 dose, On Medica l 100 mL Fri Branch 01/05/22 at 0115, Routine insulin No 10U 10 Units, Univ ers regular 01-05 IV Push, ity of human 06:00: 05:20 ONCE, 1 [place] (HUMULIN R) 00 :00 dose, On Medi efrain injection Fri Branch 10 Units 01/05/22 at 0100, [place] FENTanyl PF No 50ug 50 mcg, Un ela (SUBLIMAZE 01-05 Slow IV ity o f (PF)) 05:45: 04:47 Push, [place] injection 00 :00 ONCE, 1 Medical 50 mcg dose, On Branch 01/05/22 at 0045, STAT FENTanyl PF No 50ug 50 mcg, Un ela (SUBLIMAZE 01-05 Slow IV ity o f (PF)) 04:15: 04:00 Push, [place] injection 00 :00 ONCE, 1 Medical 50 mcg dose, On Branch [place] 01/04/22 at 2315, STAT NaCl 0.9% No 1000mL [...] No 1mg 1 mg, Slow Univers ne 6-10 06-10 IV Push, ity of (DILAUDID) 05:15: 04:42 ONCE, 1 [place] injection 1 00 :00 dose, On Medi efrain mg Sat [place] 12/22/21 at 0015, Routine
Use approved by (Faculty): ADC PROVIDER acetaminoph Yes 1000mg 1,000 mg, Univers en 6-10 Oral, Q8H, ity of (TYLENOL) 03:00: First dose [place] tablet 00 on [place] Medical 1,000 mg 12/21/21 at Branch 2200, Until Discontinu ed, Routine insulin Yes [id number] 52U inject 52 U nivers glargine 6-10 Units ity of 100 unit/mL 00:00: under the [place] injection 00 skin at Medical bedtime. [place] insulin 0 Yes [id number] 52U inject 52 U nivers glargine 6-10 Units ity of 100 unit/mL 00:00: under the [place] injection 00 skin at Medical bedtime. [place] insulin 0 Yes [id number] 52U inject 52 U nivers glargine 6-10 Units ity of 100 unit/mL 00:00: under the [place] injection 00 skin at Medical bedtime. [place] insulin 2021-0 Yes 52U inject 52 U nivers glargine 6-10 Units ity of 100 unit/mL 00:00: under the [place] injection 00 skin at Medical bedtime. [place] insulin 2021-0 Yes [id number] 52U inject 52 U nivers glargine 6-10 Units ity of 100 unit/mL 00:00: under the [place] injection 00 skin at Medical bedtime. Branch insulin 2021-0 Yes [id number] 52U inject 52 U nivers glargine 6-10 Units ity of 100 unit/mL 00:00: under the [place] injection 00 skin at Medical bedtime. Branch insulin 2021-0 Yes [id number] 52U inject 52 U nivers glargine 6-10 Units ity of 100 unit/mL 00:00: under the [place] injection 00 skin at Medical bedtime. Branch insulin 2021-0 Yes [id number] 52U inject 52 U nivers glargine 6-10 Units ity of 100 unit/mL 00:00: under the [place] injection 00 skin at Medical bedtime. Branch insulin 2021- No [id number] 52U inject 52 Univers glargine 6-10 07-30 Units ity of 100 unit/mL 00:00: 00:00 under the [place] injection 00 :00 skin at Medical bedtime. Branch insulin 2021- No [id number] 52U inject 52 Univers glargine 6-10 07-30 Units ity of 100 unit/mL 00:00: 00:00 under the [place] injection 00 :00 skin at Medical bedtime. Branch Insulin 2021- No [id number] Use as Uni vers Safety 12-22 directed ity of [place], 00:00: 04:59 [place] Disp, 29 00 :00 Medical gauge x Branch 3/16" Ndle Insulin 2021-0 2021- No [id number] Use as Uni vers Safety 12-22 directed ity of [place], 00:00: 04:59 [place] Disp, 29 00 :00 Medical gauge x Branch 3/16" Ndle Insulin 2021-0 2021- No [id number] Use as Uni vers Safety 12-22 directed ity of [place], 00:00: 04:59 [place] Disp, 29 00 :00 Medical gauge x Branch 3/16" Ndle Insulin 2021-0 2021- No [id number] Use as Uni vers Safety 12-22 directed ity of [place], 00:00: 04:59 [place] Disp, 29 00 :00 Medical gauge x Branch 3/16" Ndle Insulin 2021-0 2021- No [id number] Use as Uni vers Safety 12-22 directed ity of [place], 00:00: 04:59 [place] Disp, 29 00 :00 Medical gauge x Branch 3/16" Ndle Insulin 2021-0 2021- No [id number] Use as Uni vers Safety 12-22 directed ity of [place], 00:00: 04:59 [place] Disp, 29 00 :00 Medical gauge x Branch 3/16" Ndle Insulin 2021-0 2021- No [id number] Use as Uni vers Safety 12-22 directed ity of [place], 00:00: 04:59 [place] Disp, 29 00 :00 Medical gauge x Branch 3/16" Ndle fluconazole 2021- No [id number] 200mg Take 1 Univers 200 mg 12-22 [...] 4 mg 47 Starting Medi efrain on Lib[place] Branch 12/21/21 at 1432, Until Discontinu ed, Routine, Pain (scale 7-10) insulin Yes 30U 30 Units, Unive rs glargine 12-21 Subcutaneo ity o f (LANTUS 02:00: us, [facility], [place] U-100) 00 First dose [...] 72 hours enoxaparin Yes [facility] 40 [facility] 12-20 Subcutaneo ity of injection 14:00: us, DAILY, [place] 40 mg 00 First dose Medical on Sat Branch 12/20/21 at 0900, Until Discontinu ed, Routine tamsulosin Yes .4mg 0.4 mg, [facility] ers (FLOMAX) 12-20 Oral, ity of capsule 0.4 14:00: DAILY, [place] mg 00 First dose Medical on Sat Branch 12/20/21 at 0900, Until Discontinu ed, Routine insulin No 10U 10 Units, [facility] ers glargine 12-20- Subcutaneo ity of (LANTUS 12:00: 12:51 us, ONCE, [place] U-100) 00 :00 1 dose, On Medical injection Sat12/20/21 Bran ch 10 Units at 0700, Routine HYDROmorpho No 1mg 1 mg, Slow Univers ne 12-20 IV Push, ity of (DILAUDID) 10:00: 09:23 ONCE, 1 [place] injection 1 00 :00 dose, On Medi efrain mg Sat12/20/21 Branch at 0500, Routine
Use approved by (Faculty): ADC PROVIDER HYDROmorpho No 4mg 4 mg, [facility] ers ne 12-20- Oral, ity of (DILAUDID) 08:40: 16:28 [id number], [place] tablet 4 mg 04 :14 Starting Medi efrain on Sat12/20/21 at 0340, Until Sat12/20/21 at 1128, Routine, Pain (scale 7-10) HYDROmorpho No 1mg 1 mg, Slow Univers ne 12-20- IV Push, ity of (DILAUDID) 06:15: 05:41 ONCE, 1 [place] injection 1 00 :00 dose, On Medi efrain mg Sat12/20/21 Branch at 0115, Routine
Use approved by (Faculty): ADC PROVIDER aztreonam 2021- No 1000mg 1,000 mg, Univers (AZACTAM) 12-20 06-10 IV ity of 1,000 mg in 05:30: 16:58 Piggyback, [place] NaCl 0.9% 00 :42 Q8H ABX, Medica [...] Slow IV ity of (COMPAZINE) 04:10: Push, [place] injection 40 Q6HPRN, Medical 10 mg Starting Branch on Sat12/19/21 at 2310, Until Discontinu ed, Routine, Nausea and Vomiting (N/V) FENTanyl PF 2021- No 50ug 50 mcg, Un ela (SUBLIMAZE 12-20 06-08 Slow IV ity o f (PF)) 03:04: 03:37 Push, [place] injection 00 :00 ONCE, 1 Medical 50 mcg dose, On Branch Sat12/19/21 at 2215, STAT NaCl 0.9% 2021- No 1000mL at 999 Uni vers (NS) IV 12-20 06-08 mL/hr, ity of infusion 01:16: 01:54 Intravenou [place] 1,000 mL 00 :00 s, ONCE, 1 Medic al dose, On Branch Sat12/19/21 at 2030, Routine insulin 2021- No .1U/kg 13.7 Units U nivers regular 12-20-08 (rounded ity of human 01:15: 01:51 from 1374 [place] (HUMULIN R) 00 :00 Units = Medic [...] On Branch Sat12/19/21 at 1900, [place] hydromorpho Yes 4ug Take 4 mcg Univers ne HCl 6-07 by mouth ity of (HYDROMORPH 23:17: every 12 [place] ONE ORAL) 17 (twelve) Medica l hours. Branch hydromorpho Yes 4ug Take 4 mcg Univers ne HCl 6-06 by mouth ity of (HYDROMORPH 18:29: every 12 [place] ONE ORAL) 31 (twelve) Medica l hours. Branch insulin Yes [id number] 15U inject 15 U nivers lispro, 6-06 [...] times daily before meals. insulin 2021-0 Yes 52U inject 52 U nivers glargine 6-06 Units ity of 100 unit/mL 00:00: under the [place] injection 00 skin at Medical bedtime. Branch insulin 2021-0 Yes 15U inject 15 U nivers lispro, 6-06 Units ity of human, 100 00:00: under the [place] unit/mL 00 skin 3 Medical injection (three) Branch times daily before meals. insulin 2021-0 Yes 52U inject 52 U nivers glargine [...] Branch times daily before meals. insulin Yes [id number] 15U inject 15 U n[place] lispro, 6-06 Units ity of human, 100 00:00: under the [place] unit/mL 00 skin 3 Medical injection (three) Branch times daily before meals. insulin 2021- No [id number] 15U inject 15 Univers lispro, 6 07-30 Units ity of human, 100 00:00: 00:00 under the [place] unit/mL 00 :00 skin 3 Medical injection (three) Branch times daily before meals. insulin 2021- No [id number] 15U inject 15 Univers lispro, 6-06 07-30 Units ity of human, 100 00:00: 00:00 under the [place] unit/mL 00 :00 skin 3 Medical injection (three) Branch times daily before meals. insulin 2021- No [id number] 52U inject 52 Univers glargine 12-18 06-10 [...] (scale 7-10)
U se approved by (Faculty): [facility] PROVIDER insulin Yes .4U/kg/ 52 Units Uni vers glargine 6-05 d (rounded ity of (LANTUS 14:43: from 51.6 [place] U-100) 43 Units = Medical injection 0.4 Branch 52 Units Units/kg/d ay ?129 kg), Subcutaneo us, Q24H, First dose on 12/17/21 at 0944, Until Discontinu ed, Routine HYDROmorpho 2022-0 Yes 4mg 4 mg, Unive rs ne 6-05 Oral, ity of (DILAUDID) 02:21: Q6HPRN, [place] tablet 4 mg 55 Starting Medi efrain on Sat Branch 12/16/21 at 1, Until Discontinu ed, Routine, Pain (scale 4-6) HYDROmorpho 2021- No 1mg 1 mg, Slow Univers ne 12-17 06-05 IV Push, ity of (DILAUDID) 02:21: 18:05 Q4HPRN, [place] injection 1 39 :59 Starting Medi efrain mg on Sat Branch 12/16/21 at 2121, Until 12/17/21 at 1305, Routine, Pain (scale 7-10)
U se approved by (Faculty): [facility] PROVIDER Sliding Yes Subcutaneo [facility] ers Scale 6-04 us, Q4H, ity of Insulin - 17:00: First dose [place] lispro 00 on [facility] Medical (humaLOG) + 12/16/21 at [facility] 1200, Testing Until Discontinu ed, Routine [...] at 2122, Routine, Pain (scale 7-10) potassium 2021-0 2021- No 20meq 20 mEq, IV Univers chloride 20 12-15 Piggyback, i ty of mEq/100 mL 23:45: 03:11 Q2H, 2 [place] (KCL) 20 00 :00 doses, Medical mEq/100 mL First dose Bra nch RTU IVPB 20 on Sat mEq 12/15/21 [...] 2021- No 1000mg 1,000 mg, Univers (ROCEPHIN) 12-15 IV ity of 1,000 mg in 11:30: 16:04 Piggyback, [place] NaCl 0.9% 00 :40 Q24H ABX, Medic al (NS) 50 mL First dose Bra nch MINI-BAG on Sat12/15/21 at 0630, Until Discontinu ed, Administer over 30 Minutes, 50 mL
Reas on for Anti-Infec tive: Documented Infection< br>Documen lester Infection Site: Urine
D uration of Therapy: 7 days proMETHazin No 25mg 25 mg, IV Univers e [...] [place] 10 mL 34 Starting Medical on Fri Branch 12/15/21 at 0558, Until Discontinu ed, [...] at 0945, SAHARA, Blood glucose control acetaminoph No 1000mg 1,000 mg, Univers en 12-1503 Oral, ity of (TYLENOL) 08:45: 07:36 ONCE, 1 [place] tablet 00 :00 dose, On Medical 1,000 mg Sat12/15/21 Branc h at 0345, [place] insulin 2021- No 8U 8 Units, Unive rs regular 12-15 Slow IV ity of human 08:15: 07:13 Push, [place] (HUMULIN R) 00 :00 ONCE, 1 Medic [...] IV ity of human 07:15: 06:21 Push, [place] (HUMULIN R) 00 :00 ONCE, 1 Medic al injection 8 dose, On Bran ch Units Sat12/15/21 at 0215, STAT iopamidol 2021- No [id number] 100mL 100 mL, Univers (ISOVUE 12-15 Intravenou [...] On Medica l (NS) 50 mL Sat12/15/21 [facility] MINI-BAG at 0000, Administer over 30 Minutes, [...] 00 :00 dose, On Medical NaCl 0.9% [facility] 12/14/21 Bran ch (NS) 50 mL at 2345, IV [place] piggyback NaCl 0.9% 2021- No 1000mL at 999 Uni vers (NS) bolus 12-15 mL/hr, ity of infusion 04:30: 06:04 1,000 mL, Tim as 1,000 mL 00 :00 IV Medical Infusion, [place] ONCE, 1 dose, On [place] 12/14/21 at 2330, STAT FENTanyl PF 2021- No 100ug 100 mcg, Univers (SUBLIMAZE 12-15 Slow IV ity o f (PF)) 03:30: 03:24 Push, [place] injection 00 :00 ONCE, 1 Medical 100 mcg dose, On [facility] 12/14/21 at 2230, STAT cefTRIAXone Yes 2000mg 2,000 mg, Univers (ROCEPHIN) 5-17 Intramuscu ity of injection 21:00: lar, Q24H, [place] 2,000 mg 00 First dose Medic al on Sat [place] 11/28/21 at 1600, Until Discontinu ed, SAHARA
Re ason for Anti-Infec tive: Documented Infection< br>Documen lester Infection Site: Skin / Soft Tissue
Duration of Therapy: Other (see Comments) hydromorpho Yes 4ug Take 4 mcg Univers ne HCl 5-17 by mouth ity of (HYDROMORPH 17:43: every 12 [place] ONE ORAL) 55 (twelve) Medica l hours. hydromorpho 2022-0 Yes 4ug Take 4 mcg Univers ne HCl 5-17 by mouth ity of (HYDROMORPH 17:43: every 12 [place] ONE ORAL) 55 (twelve) Medica l hours. Branch collagenase 2021-0 Yes [id number] Apply to Univers 250 5-17 affected ity of unit/gram 00:00: area(s) [place] ointment 00 daily. Medical Branch collagenase 2021-0 Yes [id number] Apply to Univers 250 5-17 affected ity of unit/gram 00:00: area(s) [place] ointment 00 daily. Medical Branch collagenase 2021-0 Yes [id number] Apply to Univers 250 5-17 affected ity of unit/gram 00:00: area(s) [place] ointment 00 daily. Medical Branch collagenase 2021-0 Yes [id number] Apply to Univers 250 5-17 affected ity of unit/gram 00:00: area(s) [place] ointment 00 daily. Medical Branch collagenase 2021-0 Yes [id number] Apply to Univers 250 5-17 affected ity of unit/gram 00:00: area(s) [place] ointment 00 daily. Medical Branch collagenase 2021-0 Yes [id number] Apply to Univers 250 5-17 affected ity of unit/gram 00:00: area(s) [place] ointment 00 daily. Medical Branch collagenase 2021-0 Yes [id number] Apply to Univers 250 5-17 affected ity of unit/gram 00:00: area(s) [place] ointment 00 daily. Medical Branch collagenase 2021-0 Yes [id number] Apply to Univers 250 5-17 affected ity of unit/gram 00:00: area(s) [place] ointment 00 daily. Medical Branch collagenase 2021-0 Yes [id number] Apply to Univers 250 5-17 affected ity of unit/gram 00:00: area(s) [place] ointment 00 daily. Medical Branch collagenase 2021-0 Yes [id number] Apply to Univers 250 5-17 affected ity of unit/gram 00:00: area(s) [place] ointment 00 daily. Medical Branch collagenase 2021-0 Yes [id number] Apply to Univers 250 5-17 affected ity of unit/gram 00:00: area(s) [place] ointment 00 daily. Medical Branch collagenase 2022-0 Yes [id number] Apply to Univers 250 5-17 affected ity of unit/gram 00:00: area(s) [place] ointment 00 daily. Medical Branch collagenase 2021-0 Yes [id number] Apply to Univers 250 5-17 affected ity of unit/gram 00:00: area(s) [place] ointment 00 daily. Medical Branch collagenase 2021-0 Yes [id number] Apply to Univers 250 5-17 affected ity of unit/gram 00:00: area(s) [place] ointment 00 daily. Medical Branch collagenase 2021-0 Yes [id number] Apply to Univers 250 5-17 affected ity of unit/gram 00:00: area(s) [place] ointment 00 daily. Medical Branch collagenase 2021-0 Yes [id number] Apply to Univers 250 5-17 affected ity of unit/gram 00:00: area(s) [place] ointment 00 daily. Medical Branch collagenase 2021-0 Yes [id number] Apply to Univers 250 5-17 affected ity of unit/gram 00:00: area(s) [place] ointment 00 daily. Medical Branch collagenase 2021-0 Yes [id number] Apply to Univers 250 5-17 affected ity of unit/gram 00:00: area(s) [place] ointment 00 daily. Medical Branch collagenase 2021-0 Yes [id number] Apply to Univers 250 5-17 affected ity of unit/gram 00:00: area(s) [place] ointment 00 daily. Medical Branch collagenase 2021-0 Yes [id number] Apply to Univers 250 5-17 affected ity of unit/gram 00:00: area(s) [place] ointment 00 daily. Medical Branch collagenase 2021-0 Yes [id number] Apply to Univers 250 5-17 affected ity of unit/gram 00:00: area(s) [place] ointment 00 daily. Medical Branch collagenase 2021-0 Yes [id number] Apply to Univers 250 5-17 affected ity of unit/gram 00:00: area(s) [place] ointment 00 daily. Medical Branch collagenase 2021-0 Yes [id number] Apply to Univers 250 5-17 affected ity of unit/gram 00:00: area(s) [place] ointment 00 daily. Medical Branch collagenase 2021-0 Yes [id number] Apply to Univers 250 5-17 affected ity of unit/gram 00:00: area(s) [place] ointment 00 daily. Medical Branch collagenase Yes [id number] Apply to Univers 250 5-17 affected ity of unit/gram 00:00: area(s) [place] ointment 00 daily. Medical Branch collagenase Yes [id number] Apply to Univers 250 5-17 affected ity of unit/gram 00:00: area(s) [place] ointment 00 daily. Medical Branch docusate 2021- No [id number] 100mg Take 1 U nivers 100 mg 5-17 06-17 capsule by ity of capsule 00:00: 04:59 mouth 2 [place] 00 :00 (two) Medical times Branch daily for 30 days. lactobacill 2021- No [id number] .5mg Take 1 Univers us 5-17 06-17 tablet by ity of acidophilus 00:00: 04:59 mouth 2 [place] 00 :00 (two) Medical times Branch daily for 30 days. sennosides 2021- No [id number] 8.6mg Take 1 Univers 8.6 mg 5-17 06-17 tablet by ity of tablet 00:00: 04:59 mouth 2 [place] 00 :00 (two) Medical times Branch daily for 30 days. tamsulosin 2021- No [id number] .4mg Take 1 Univers 0.4 mg 24 5-17 06-17 capsule by ity of hr capsule 00:00: 04:59 mouth [place] 00 :00 daily for Medical 30 days. Branch docusate 2021- No [id number] 100mg Take 1 U nivers 100 mg 5-17 06-17 capsule by ity of capsule 00:00: 04:59 mouth 2 [place] 00 :00 (two) Medical times Branch daily for 30 days. lactobacill 2021- No [id number] .5mg Take 1 Univers us 5-17 06-17 tablet by ity of acidophilus 00:00: 04:59 mouth 2 [place] 00 :00 (two) Medical times Branch daily for 30 days. sennosides 2021- No [id number] 8.6mg Take 1 Univers 8.6 mg 5-17 06-17 tablet by ity of tablet 00:00: 04:59 mouth 2 [place] 00 :00 (two) Medical times Branch daily for 30 days. tamsulosin 2021- No [id number] .4mg Take 1 Univers 0.4 mg 24 5-17 06-17 capsule by ity of hr capsule 00:00: 04:59 mouth [place] 00 :00 daily for Medical 30 days. Branch docusate 2021- No [id number] 100mg Take 1 U nivers 100 mg 5-17 06-17 capsule by ity of capsule 00:00: 04:59 mouth 2 [place] 00 :00 (two) Medical times [place] daily for 30 days. lactobacill 2021- No [id number] .5mg Take 1 Univers us 5-17 06-17 tablet by ity of acidophilus 00:00: 04:59 mouth 2 [place] 00 :00 (two) Medical times [place] daily for 30 days. sennosides 2021- No [id number] 8.6mg Take 1 Univers 8.6 mg 5-17 06-17 tablet by ity of tablet 00:00: 04:59 mouth 2 [place] 00 :00 (two) Medical times Branch daily for 30 days. tamsulosin 2021- No [id number] .4mg Take 1 Univers 0.4 mg 24 5-17 06-17 capsule by ity of hr capsule 00:00: 04:59 mouth [place] 00 :00 daily for Medical 30 days. Branch docusate 2021- No [id number] 100mg Take 1 U nivers 100 mg 5-17 06-17 capsule by ity of capsule 00:00: 04:59 mouth 2 [place] 00 :00 (two) Medical times [place] daily for 30 days. lactobacill 2021- No [id number] .5mg Take 1 Univers us 5-17 06-17 tablet by ity of acidophilus 00:00: 04:59 mouth 2 [place] 00 :00 (two) Medical times Branch daily for 30 days. sennosides 2021- No [id number] 8.6mg Take 1 Univers 8.6 mg 5-17 06-17 tablet by ity of tablet 00:00: 04:59 mouth 2 [place] 00 :00 (two) Medical times Branch daily for 30 days. tamsulosin 2021- No [id number] .4mg Take 1 Univers 0.4 mg 24 5-17 06-17 capsule by ity of hr capsule 00:00: 04:59 mouth [place] 00 :00 daily for Medical 30 days. Branch docusate 2021- No [id number] 100mg Take 1 U nivers 100 mg 5-17 06-17 capsule by ity of capsule 00:00: 04:59 mouth 2 [place] 00 :00 (two) Medical times Branch daily for 30 days. lactobacill 2021- No [id number] .5mg Take 1 Univers us 5-17 06-17 tablet by ity of acidophilus 00:00: 04:59 mouth 2 [place] 00 :00 (two) Medical times Branch daily for 30 days. sennosides 2021- No [id number] 8.6mg Take 1 Univers 8.6 mg 5-17 -17 tablet by ity of tablet 00:00: 04:59 mouth 2 [place] 00 :00 (two) Medical times Branch daily for 30 days. tamsulosin 2021- No [id number] .4mg Take 1 Univers 0.4 mg 24 5-17 -17 capsule by ity of hr capsule 00:00: 04:59 mouth [place] 00 :00 daily for Medical 30 days. Branch metroNIDAZO 2021- No [id number] 500mg Take 1 Univers LE 500 mg 5-17 05-21 tablet by ity of tablet 00:00: 04:59 mouth [place] 00 :00 every 12 Medical (twelve) Branch hours for 3 days. metroNIDAZO 2021- No [id number] 500mg Take 1 Univers LE 500 mg 5-17 05-21 tablet by ity of tablet 00:00: 04:59 mouth [place] 00 :00 every 12 Medical (twelve) Branch hours for 3 days. metroNIDAZO 2021- No 500mg 500 mg, U nivers LE (FLAGYL) 5-15 05-20 Oral, Q12H i ty of tablet 500 22:00: 21:59 ABX, 10 Tim as mg 00 :00 doses, Medical First dose Branch on 11/26/21 at 1700, Last dose on Sat12/01/21 at [...] (Apply To ity of ointment 22:15: Affected [place] 00 Areas), Medical DAILY, Branch First dose [...] :02 First dose Medical solution on Sat 125 mg 11/22/21 at 0900, Until Discontinu [...] Yes .5mg 0.5 mg, Uni vers us - Oral, BID, ity of acidophilus 13:00: First dose [place] tablet 0.5 00 on Sat Medical mg 11/22/21 at Branch 0800, Until Discontinu ed, Routine ceFEPIme 2021- No 2g 2 g, IV Unive rs (MAXIPIME) 11-2215 Piggyback, it y of 2 g in [...] 1000mL at 50 Univ ers (NS) IV 11-22 05-16 mL/hr, IV ity of infusion 10:00: 16:41 Infusion, Tim as 1,000 mL 00 :28 CONTINUOUS Medic al , Starting Branch on Sat11/22/21 at 0500, Until Sat11/27/21 at 1141, Routine doxycycline 2021- No 100mg 100 mg, IV Univers (VIBRAMYCIN 11-2214 Piggyback, i ty of ) 100 mg in 09:15: 23:11 Q12H ABX, [place] NaCl 0.9% 00 :48 First dose Medi [...] 1 07 Starting Medi efrain mg on Sat11/22/21 at 0104, Until Discontinu ed, Routine, Pain (scale 7-10)
U se approved by (Faculty): ADC PROVIDER FENTanyl PF No 50ug 50 mcg, Un ela (SUBLIMAZE 11-22 Slow IV ity o f (PF)) 05:30: 05:01 Push, [place] injection 00 :00 ONCE, 1 Medical 50 mcg dose, On Branch Sat11/22/21 at 0030, STAT iopamidol 2021- No [id number] 150mL 150 mL, Univers (ISOVUE 11-22 Intravenou ity o f 370-500 mL) 04:45: 03:34 s, ONCE, 1 [place] injection 00 :00 dose, On Medica l 150 mL e [place] 11/21/21 at 2345, Routine ceFEPIme 2021- No 2000mg 2,000 mg, U nivers (MAXIPIME) 11-22 IV ity of injection 04:15: 04:15 Piggyback, [place] 2,000 mg 00 :00 ONCE, 1 Medical dose, On Branch Sat11/21/21 at 2315, STAT
Re ason for Anti-Infec tive: Empiric Therapy for Suspected Infection< br>Empiric Therapy Site: Bone
Du ration of therapy: 72 hours FENTanyl PF No 75ug 75 mcg, Un ela (SUBLIMAZE 11-22 Slow IV ity o f (PF)) 03:45: 02:47 Push, [place] injection 00 :00 ONCE, 1 Medical 75 mcg dose, On Branch Sat11/21/21 at 2245, STAT OXYCODONE 2021- No Take by [facility] ers HCL/ACETAMI 11-22 mouth. ity o f NOPHEN 03:22: 00:00 [place] (PERCOCET 50 :00 Medical ORAL) [place] FENTanyl PF 2021- No 100ug 100 mcg, Univers (SUBLIMAZE 11-22 Slow IV ity o f (PF)) 01:30: 01:12 Push, [place] injection 00 :00 ONCE, 1 Medical 100 mcg dose, On Branch Sat11/21/21 at 2030, STAT Lovenox No Notes: Memoria 4-13 (Same as: l 17:00: Lovenox) Lovenox No Notes: Memoria 4-13 (Same as: l 17:00: Lovenox) promethazin No Notes: Erwin benjamin e 4-13 (Same as: l 16:47: Phenergan) promethazin No Notes: Erwin benjamin e 4-13 (Same as: l 16:47: Phenergan) albuterol No Notes: SEE Me moria 0.083% 4-13 RT l inhalation 16:46: DOCUMENTAT H ermann solution 00 ION (Same as: Proventil) albuterol No Notes: SEE Me moria 0.083% 4-13 RT l inhalation 16:46: DOCUMENTAT H ermann solution 00 ION (Same as: Proventil) hydromorpho Yes 4 mg = 1 Me moria ne 4 mg 4-13 tab, PO, l oral tablet 16:43: Q12H, 0 Her manzo 00 Refill(s) hydromorpho Yes 4 mg = 1 Me moria ne 4 mg 4-13 tab, PO, l oral tablet 16:43: Q12H, 0 Her manzo 00 Refill(s) Lantus 100 0 No 10 unit, Mem oria units/mL 4-13 SUB-Q, l 16:40: Daily, 0 [place] 00 Refill(s) Lantus 100 0 No 10 unit, Mem oria units/mL 4-13 SUB-Q, l 16:40: Daily, 0 [place] 00 Refill(s) Lantus 100 0 No 10 unit, Mem oria units/mL 4-12 0.1 mL, l 14:00: Route: [place] 00 SUB-Q, Drug form: SOLN, Daily, Dosing Weight 127.727, kg, Start date: 10/24/21 9:00:00 CDT, Duration: 30 day, Stop date: 11/22/21 9:00:00 CDT, Infuse over: 0 hr, 0 Lantus 100 No 10 unit, Mem oria units/mL 4-12 0.1 mL, l 14:00: Route: [place] 00 SUB-Q, Drug form: SOLN, Daily, Dosing Weight 127.727, kg, Start date: 10/24/21 9:00:00 CDT, Duration: 30 day, Stop date: 11/22/21 9:00:00 CDT, Infuse over: 0 hr, 0 cefepime + No Notes: Memor ia sterile 4-12 (Same As: l water 10 mL 06:00: Maxipime) H erm 00 MEDICATION WASTE Product Size: 1000 mg Product Wasted: _0__ mg cefepime + No Notes: Memor ia sterile 4-12 (Same As: l water 10 mL 06:00: Maxipime) H erm MEDICATION WASTE Product Size: 1000 mg Product Wasted: _0__ mg cefepime + No Notes: Memor ia sterile 4-12 (Same As: l water 10 mL 05:00: Maxipime) H erm MEDICATION WASTE Product Size: 1000 mg Product Wasted: _0__ mg insulin No Notes: Memoria lispro 4-12 (Same as: l 05:00: Humalog) Roll in palms of hands gently; Do not shake vigorously . WASTE: F/P - Black; E - Municipal Trash Bin Stable for 28 days at room temperatur e. Expires in days from ____Date cefepime + No Notes: Memor ia sterile 4-12 (Same As: l water 10 mL 05:00: Maxipime) H erm MEDICATION WASTE Product Size: 1000 mg Product Wasted: _0__ mg insulin No Notes: Memoria lispro 4-12 (Same as: l 05:00: Humalog) [place] 00 Roll in palms of hands gently; Do not shake vigorously . WASTE: F/P - Black; E - Municipal Trash Bin Stable for 28 days at room temperatur e. Expires in days from ____Date Dilaudid No Notes: Memoria 4-11 (Same as: l 16:53: Dilaudid) Dilaudid No Notes: Memoria 4-11 (Same as: l 16:53: Dilaudid) Lantus 100 No 10 unit, Mem oria units/mL 4-11 0.1 mL, l 16:24: Route: SUB-Q, Drug form: SOLN, ONCE, Dosing Weight 127.727, kg, Start date: 10/23/21 11:24:00 CDT, Stop date: 10/23/21 11:24:00 CDT, Infuse over: 0 hr, 0 Lantus 100 No 10 unit, Mem oria units/mL 4-11 0.1 mL, l 16:24: Route: SUB-Q, Drug form: SOLN, ONCE, Dosing Weight [...] CDT, Stop date: 10/23/21 10:15:00 CDT, 0 NS (Bolus) No 500 mL, Erwin benjamin IV 4-11 500 ml/hr, l 15:15: Infuse Over: 1 hr, Route: IV, 500, Drug form: INJ, ONCE, Priority: STAT, Dosing Weight 127.727 kg, Start date: 10/23/21 10:15:00 CDT, Stop date: 10/23/21 10:15:00 CDT, 0 Dextrose No 12.5 gm, Memor ia 50% Syringe 4-11 25 mL, l (D50W) 13:59: Route: [place] 00 IVP, Drug Form: INJ, Dosing Weight 127.727, kg, PRN, PRN Blood Glucose Results, Start date: 10/23/21 8:59:00 CDT, Duration: 30 day, Stop date: 11/22/21 8:58:00 CDT, 0 glucagon 202-0 No 1 mg, Memoria 4-11 Route: IM, l 13:59: Drug form: [place] 00 PDR/INJ, PRN, Dosing Weight 127.727, kg, PRN Blood Glucose Results, Start date: 10/23/21 8:59:00 CDT, Duration: 30 day, Stop date: 11/22/21 8:58:00 CDT, 0 insulin 2021-0 No Notes: Memoria lispro 4-11 (Same as: l 13:59: Humalog) [place] 00 Roll in palms of hands gently; Do not shake vigorously . WASTE: F/P - Black; E - Municipal Trash Bin Stable for 28 days at room temperatur e. Expires in days from ____Date Dextrose 2021-0 No 12.5 gm, Memor ia 50% Syringe 4-11 25 mL, l (D50W) 13:59: Route: [place] 00 IVP, Drug Form: INJ, Dosing Weight 127.727, kg, PRN, PRN Blood Glucose Results, Start date: 10/23/21 8:59:00 CDT, Duration: 30 day, Stop date: 11/22/21 8:58:00 CDT, 0 glucagon 2021-0 No 1 mg, Memoria 4-11 Route: IM, l 13:59: Drug form: [place] 00 PDR/INJ, PRN, Dosing Weight 127.727, kg, PRN Blood Glucose Results, Start date: 10/23/21 8:59:00 CDT, Duration: 30 day, Stop date: 11/22/21 8:58:00 CDT, 0 insulin 2021-0 No Notes: Memoria lispro 4-11 (Same as: l 13:59: Humalog) [place] 00 Roll in palms of hands gently; Do not shake vigorously . WASTE: F/P - Black; E - Municipal Trash Bin Stable for 28 days at room temperatur e. Expires in days from ____Date Lyrica No Notes: Memoria 4-11 (Same as: l 02:00: Lyrica) Lyrica No Notes: Memoria 4-11 (Same as: l 02:00: Lyrica) valproic No Notes: Memoria acid 100 4-10 Dilute in l mg/mL 17:00: at least [place] intravenous 00 50ml D5W solution + or NS. Sodium Infusion Chloride rate = 20 0.9% IV 50 mg/min mL (Same As: Depacon) Hazardous Drug Group 3:Reproduc tive risk Hazardous Drug -- Refer to safe handling procedure PPE Matrix valproic No Notes: Memoria acid 100 4-10 Dilute in l mg/mL 17:00: at least [place] intravenous 00 50ml D5W solution + or NS. Sodium Infusion Chloride rate = 20 0.9% IV 50 mg/min mL (Same As: Depacon) Hazardous Drug Group 3:Reproduc tive risk Hazardous Drug -- Refer to safe handling procedure PPE Matrix Solu-MEDROL No Notes: Erwin benjamin 4-10 (Same l 16:43: as:Solu-ME [place] 00 DROL, A-Methapre d) MEDICATION WASTE Product Size: 1000 mg Product Wasted: _0__ mg magnesium No Notes: Memori a sulfate 4-10 WASTE: F/P l 16:43: - Sink; E - Municipal Trash Bin Solu-MEDROL No Notes: Erwin benjamin 4-10 (Same l 16:43: as:Solu-ME [place] 00 DROL, A-Methapre d) MEDICATION WASTE Product Size: 1000 mg Product Wasted: _0__ mg magnesium No Notes: Memori a sulfate 4-10 WASTE: F/P l 16:43: - Sink; E - Municipal Trash Bin amitriptyli No Notes: Erwin benjamin ne 4-10 (Same as: l 02:00: Elavil) amitriptyli No Notes: Erwin benjamin ne 4-10 (Same as: l 02:00: Elavil) SUMAtriptan No Notes: Erwin benjamin 4-09 (Same As: l 18:45: Imitrex) SUMAtriptan No Notes: Erwin benjamin 4-09 (Same As: l 18:45: Imitrex) promethazin No 6.25 mg, Me moria e 4-09 Route: l 18:44: IVPB, [place] 00 Q12H, Dosing Weight 127.727, kg, PRN Nausea & Vomiting, Start date: 10/21/21 13:44:00 CDT, Duration: 30 day, Stop date: 11/20/21 13:43:00 CDT promethazin No 6.25 mg, Me moria e 4-09 Route: l 18:44: IVPB, [place] 00 Q12H, Dosing Weight 127.727, kg, PRN Nausea & Vomiting, Start date: 10/21/21 13:44:00 CDT, Duration: 30 day, Stop date: 11/20/21 13:43:00 CDT Benadryl No Notes: Memoria 4-09 (Same as: l 18:37: Benadryl) Benadryl No Notes: Memoria 4-09 (Same as: l 18:37: Benadryl) Dilaudid No Notes: Memoria 4-09 (Same as: l 18:36: Dilaudid) Dilaudid No Notes: Memoria 4-09 (Same as: l 18:36: Dilaudid) Phenergan No Notes: Memori a 4-09 (Same as: l 18:33: Phenergan) 6.25 mg = 1/2 x 12.5 mg TAB Phenergan No Notes: Memori a 4-09 (Same as: l 18:33: Phenergan) [place] 00 6.25 mg = 1/2 x 12.5 mg TAB ascorbic No Notes: Memoria acid 4-09 (Same as: l 14:00: Vitamin C) [place] celecoxib No Notes: Memori a 4-09 NSAID. l 14:00: Please [place] 00 check indication . Not for seizure. (Same As: CeleBREX) Lidoderm 5% No Notes: Erwin benjamin topical 10-21 Apply only l film 14:00: once for [place] (patch) 00 up to 12 hours in a 24-hour period (12 hours on and 12 hours off). (Same as: Aspercreme Lidocaine Patch) "Remove old patch before applicatio n of new patch" zinc No Notes: Memoria sulfate 10-21 (Zinc l 14:00: sulfate [place] 00 capsule) - 220 mg Zinc sulfate = 50 mg elemental zinc Same as Zinc Sulfate ascorbic No Notes: Memoria acid - (Same as: l 14:00: Vitamin C) [place] celecoxib No Notes: Memori a 4-09 NSAID. l 14:00: Please [place] 00 check indication . Not for seizure. (Same As: CeleBREX) Lidoderm 5% No Notes: Erwin benjamin topical - Apply only l film 14:00: once for [place] (patch) 00 up to 12 hours in a 24-hour period (12 hours on and 12 hours off). (Same as: Aspercreme Lidocaine Patch) "Remove old patch before applicatio n of new patch" zinc No Notes: Memoria sulfate - (Zinc l 14:00: sulfate [place] 00 capsule) - 220 mg Zinc sulfate = 50 mg elemental zinc Same as Zinc Sulfate cefepime + No Notes: Memor ia sterile - (Same As: l water 10 mL 12:00: Maxipime) H erm 00 MEDICATION WASTE Product Size: 1000 mg Product Wasted: _0__ mg cefepime + No Notes: Memor ia sterile 4- (Same As: l water 10 mL 12:00: Maxipime) H erm 00 MEDICATION WASTE Product Size: 1000 mg Product Wasted: _0__ mg hydromorpho No Notes: Erwin benjamin ne 4-09 (Same as: l 09:39: Dilaudid) [place] 00 hydromorpho No Notes: Erwin benjamin ne 4-09 (Same as: l 09:39: Dilaudid) [place] 00 methocarbam No Notes: Erwin benjamin ol 4-09 (Same l 05:00: as:Robaxin [place] 00 ) methocarbam No Notes: Erwin benjamin ol 4-09 (Same l 05:00: as:Robaxin [place] 00 ) docusate No Notes: Memoria 4-09 (Same as: l 02:00: Colace) [place] 00 (Do Not Crush) senna No Notes: Memoria 4-09 (Same as: l 02:00: Senokot) [place] 00 Saline No Notes: Memoria Flush 0.9% 4-09 (Same as: l 02:00: BD [place] 00 Posiflush) topiramate No Notes: Memor ia 4-09 (Same As: l 02:00: Topamax) [place] 00 "Do Not Crush" Hazardous Drug Group 3:Reproduc tive risk Hazardous Drug -- Refer to safe handling procedure PPE Matrix remove No Notes: Memoria patch 4-09 Remove l 02:00: patch 12 [place] 00 hours after applicatio n each day. docusate No Notes: Memoria 4-09 (Same as: l 02:00: Colace) [place] 00 (Do Not Crush) senna No Notes: Memoria 4-09 (Same as: l 02:00: Senokot) [place] 00 Saline No Notes: Memoria Flush 0.9% 4-09 (Same as: l 02:00: BD [place] 00 Posiflush) topiramate No Notes: Memor ia 4-09 (Same As: l 02:00: Topamax) [place] 00 "Do Not Crush" Hazardous Drug Group 3:Reproduc tive risk Hazardous Drug -- Refer to safe handling procedure PPE Matrix remove No Notes: Memoria patch 4-09 Remove l 02:00: patch 12 [place] 00 hours after applicatio n each day. acetaminoph No Notes: Max Memoria en -09 acetaminop l 01:00: hen 4000 [place] 00 mg/day (4 gm/day). (Same as: Tylenol Extra Strength) acetaminoph No Notes: Max Memoria en - acetaminop l 01:00: hen 4000 [place] 00 mg/day (4 gm/day). (Same as: Tylenol Extra Strength) oxyCODONE No Notes: Memori a immediate 4-09 (Same as: l release 00:09: Roxicodone Herm carly 00 ) acetaminoph No Notes: Do M emoria en-hydrocod 10-21 not exceed l one 325 00:09: 4gm/day of Herm carly mg-10 mg 00 acetaminop oral tablet hen. (Same as: [place] 325/10) oxyCODONE No Notes: Memori a immediate - (Same as: l release 00:09: Roxicodone Herm carly 00 ) acetaminoph No Notes: Do M emoria en-hydrocod 10-21 not exceed l one 325 00:09: 4gm/day of Herm carly mg-10 mg 00 acetaminop oral tablet hen. (Same as: [place] 325/10) LORazepam No Notes: Memori a 4-09 (Same as: l 00:06: Ativan) [place] 00 oxyCODONE No Notes: Memori a immediate 4- (Same as: l release 00:06: Roxicodone Herm carly 00 ) LORazepam No Notes: Memori a 4-09 (Same as: l 00:06: Ativan) [place] 00 oxyCODONE No Notes: Memori a immediate 4-09 (Same as: l release 00:06: Roxicodone Herm carly 00 ) Sodium No 1,000 mL, Memori a Chloride 10-20 Rate: 75 l 0.9% IV 23:43: ml/hr, Jason 1,000 mL 00 Infuse over: 13.3 hr, Route: IV, Dosing Weight 127.727 kg, Total Volume: 1,000, Start date: 10/20/21 18:43:00 CDT, Duration: 30 day, Stop date: 11/19/21 18:42:00 CDT, BSA: 2.37 m2, 0 acetaminoph No Notes: Do M emoria en 4-08 not exceed l 23:43: 4 gm/day. [place] 00 (Same as: Tylenol) acetaminoph No Notes: Erwin benjamin en-hydrocod 4-08 (Same as: l one 325 23:43: [place] mg-5 mg 00 325/5) Do oral tablet not exceed 4gm/day of acetaminop hen. acetaminoph No Notes: Do M emoria en-hydrocod 4-08 not exceed l one 325 23:43: 4gm/day of Herm carly mg-10 mg 00 acetaminop oral tablet hen. (Same as: [place] 325/10) bisacodyl No Notes: Memori a 4-08 (Same As: l 23:43: Dulcolax, [place] 00 Bisco-Lax) hydrALAZINE No Notes: Erwin benjamin [...] 0.9% 4-08 (Same as: l 23:43: BD [place] 00 Posiflush) Sodium No 1,000 mL, Memori a Chloride 4-08 Rate: 75 l 0.9% IV 23:43: ml/hr, [place] 1,000 mL 00 Infuse over: 13.3 hr, Route: IV, Dosing Weight 127.727 kg, Total Volume: 1,000, Start date: 10/20/21 18:43:00 CDT, Duration: 30 day, Stop date: 11/19/21 18:42:00 CDT, BSA: 2.37 m2, 0 acetaminoph No Notes: Do M emoria en 4-08 not exceed l 23:43: 4 gm/day. [place] (Same as: Tylenol) acetaminoph No Notes: Erwin benjamin en-hydrocod -08 (Same as: l one 325 23:43: [place] mg-5 mg 00 325/5) Do oral tablet not exceed 4gm/day of acetaminop hen. acetaminoph No Notes: Do Alex emoria en-hydrocod 4-08 not exceed l one 325 23:43: 4gm/day of Herm carly mg-10 mg 00 acetaminop oral tablet hen. (Same as: [place] 325/10) bisacodyl No Notes: Memori a -08 (Same As: l 23:43: Dulcolax, Bisco-Lax) hydrALAZINE No Notes: Erwin benjamin 4-08 (Same as: l 23:43: Apresoline ) Push over 5 minutes labetalol No 10 mg, 2 Erwin benjamin 4-08 mL, Route: l 23:43: IVP, Drug form: INJ, Q15Min, Dosing Weight 127.727, kg, Start date: 10/20/21 18:43:00 CDT, Duration: 3 doses or times, Stop date: 10/20/21 19:13:00 CDT, 0 Saline No Notes: Memoria Flush 0.9% 10-20 (Same as: l 23:43: BD Posiflush) NaCl 0.9% 1000mL at 999 Uni vers (NS) bolus 10-16 04-04 mL/hr, ity of infusion 05:00: 05:59 1,000 mL, Tim as 1,000 mL 00 :00 IV Medical Piggyback, Branch ONCE, 1 dose, On Sat10/16/21 at 0000, STAT diphenhydrA 2021- No 25mg 25 mg, Uni vers MINE 10-16- Slow IV ity of (BENADRYL) 05:00: 04:47 Push, [place] injection 00 :00 ONCE, 1 Medical 25 mg dose, On Branch Sat10/16/21 at 0000, STAT haloperidol 2021- No 2.5mg 2.5 mg, U nivers lactate 10-16 Intravenou ity o f (HALDOL) 05:00: 04:47 s, ONCE, 1 [place] injection 00 :00 dose, On Medica l 2.5 mg Sat10/16/21 Branch at 0000, STAT topiramate Yes 25 mg = 1 Me moria 25 mg oral 3-29 cap, PO, l capsule 13:44: Q12H, # 60 Herm carly 00 cap, 0 Refill(s), Pharmacy: [id number], 149.86, cm, 10/06/21 1:18:00 CDT, Height, 127.727, kg, 10/06/21 1:18:00 CDT, Weight topiramate Yes 25 mg = 1 Me moria 25 mg oral 3-29 cap, PO, l capsule 13:44: Q12H, # 60 Herm carly 00 cap, 0 Refill(s), Pharmacy: [id number], 149.86, cm, 10/06/21 1:18:00 CDT, Height, 127.727, kg, 10/06/21 1:18:00 CDT, Weight topiramate No Notes: Memor ia 3-28 Hazardous l 22:05: Drug Group [place] 00 3:Reproduc tive risk Hazardous Drug -- Refer to safe handling procedure PPE Matrix Sprinkle formulatio n. (Same As: Topamax) topiramate No Notes: Memor ia 3-28 Hazardous l 22:05: Drug Group [place] 00 3:Reproduc tive risk Hazardous Drug -- Refer to safe handling procedure PPE Matrix Sprinkle formulatio n. (Same As: Topamax) Prudencio No Notes: Memoria packet 3-28 (Same as: l 21:30: Prudencio Jasno 00 Unflavored ) Administer ing PRUDENCIO orally: Mix into 8-10 fl oz of room temperatur e juice, soda, or water. Also mixes well with warm beverages, like coffee or tea. Can be mixed with applesauce . Thoroughly stir for 30-60 seconds or until completely dissolved Prudencio No Notes: Memoria packet 3-28 (Same as: [...] Memoria 3-27 (Same as: l 16:00: Lovenox) Lovenox No Notes: Memoria 3-27 (Same as: l 16:00: Lovenox) Magnesium No Notes: Memori a Sulfate 10-08 WASTE: F/P l 15:54: - Sink; E - Municipal Trash Bin methylPREDN No Notes: Erwin benjamin ISolone 3-27 (Same l SODium 15:54: as:Solu-ME Kristen nn SUCCinate 00 DROL, A-Methapre d) MEDICATION WASTE Product Size: 1000 mg Product Wasted: ___ mg Magnesium No Notes: Memori a Sulfate 3-27 WASTE: F/P l 15:54: - Sink; E - Municipal Trash Bin methylPREDN No Notes: Erwin benjamin ISolone 3-27 (Same l SODium 15:54: as:Solu-ME [place]en nn SUCCinate 00 DROL, A-Methapre d) MEDICATION WASTE Product Size: 1000 mg Product Wasted: ___ mg Dilaudid No Notes: Memoria 3-27 (Same as: l 13:28: Dilaudid) Dilaudid No Notes: Memoria 3-27 (Same as: l 13:28: Dilaudid) remove No Notes: Memoria patch 3-27 Remove l 02:00: patch 12 [place] 00 hours after applicatio n each day. remove No Notes: Memoria patch 3-27 Remove l 02:00: patch 12 [place] 00 hours after applicatio n each day. Lyrica No Notes: Memoria 3-26 (Same as: l 21:58: Lyrica) [place] 00 Naproxen No Notes: Memoria 3-26 (Same as: l 21:58: Naprosyn) [place] 00 Take with food. Lyrica No Notes: Memoria 3-26 (Same as: l 21:58: Lyrica) [place] 00 Naproxen No Notes: Memoria 3-26 (Same as: l 21:58: Naprosyn) [place] 00 Take with food. Ascorbic No Notes: Memoria Acid 3-26 (Same as: l 14:00: Vitamin C) [place] 00 Zinc No Notes: Memoria Sulfate 3-26 (Zinc l 14:00: sulfate [place] 00 capsule) - 220 mg Zinc sulfate = 50 mg elemental zinc Same as Zinc Sulfate multivitami No Notes: Erwin benjamin n 3-26 (Same l 14:00: as:Thera) [place] 00 WASTE: F/P - Black; E - Municipal Trash Bin Take with food. Lidocaine No Notes: Memori a 0.05 MG/MG 3-26 Apply only l Transdermal 14:00: once for [place] Patch 00 up to 12 hours in a 24-hour period (12 hours on and 12 hours off). (Same as: Aspercreme Lidocaine Patch) "Remove old patch before applicatio n of new patch" Ascorbic No Notes: Memoria Acid 3-26 (Same as: l 14:00: Vitamin C) [place] 00 Zinc No Notes: Memoria Sulfate 3-26 (Zinc l 14:00: sulfate [place] 00 capsule) - 220 mg Zinc sulfate = 50 mg elemental zinc Same as Zinc Sulfate multivitami No Notes: Erwin benjamin n 3-26 (Same l 14:00: as:Thera) [place] 00 WASTE: F/P - Black; E - Municipal Trash Bin Take with food. Lidocaine No Notes: Memori a 0.05 MG/MG 10-07 Apply only l Transdermal 14:00: once for [place] Patch 00 up to 12 hours in a 24-hour period (12 hours on and 12 hours off). (Same as: Aspercreme Lidocaine Patch) "Remove old patch before applicatio n of new patch" Celebrex No Notes: Memoria 3-26 NSAID. l 03:15: Please [place] 00 check indication . Not for seizure. (Same As: CeleBREX) Robaxin No Notes: Memoria 3-26 (Same l 03:15: as:Robaxin [place] 00 ) gabapentin No Notes: Memor ia - (Same as: l 03:15: Neurontin) [place] 00 Tramadol No Notes: Not Mem oria 3-26 to exceed l 03:15: 400mg/day. [place] 00 (Same As: Ultram) Celebrex No Notes: Memoria 3- NSAID. l 03:15: Please [place] 00 check indication . Not for seizure. (Same As: CeleBREX) Robaxin No Notes: Memoria 3-26 (Same l 03:15: as:Robaxin [place] 00 ) gabapentin No Notes: Memor ia - (Same as: l 03:15: Neurontin) [place] 00 Tramadol No Notes: Not Mem oria 3-26 to exceed l 03:15: 400mg/day. [place] 00 (Same As: Ultram) Dexamethaso No Notes: Memoria ne 3-26 MEDICATION l 03:00: WASTE [place] 00 Product Size: 10 mg Product Wasted: ___ mg Dexamethaso No Notes: Memoria ne 3-26 MEDICATION l 03:00: WASTE [place] 00 Product Size: 10 mg Product Wasted: ___ mg Dilaudid No Notes: Memoria 3-26 Same as l 02:58: Dilaudid [place] 00 Dilaudid No Notes: Memoria 3-26 Same as l 02:58: Dilaudid [place] 00 Acetaminoph No Notes: Max Memoria en 3-25 acetaminop l 22:38: hen = [place] 00 4000mg/day (4 gm/day). (Same as: Tylenol) Acetaminoph No Notes: Max Memoria en 3-25 acetaminop l 22:38: hen = [place] 00 4000mg/day (4 gm/day). (Same as: Tylenol) Isolyte S No Notes: Memori a PH-7.4 3-25 (Same as: l (Bolus) IV 22:37: Isolyte S [place] 00 PH7.4, Normosol-R PH 7.4, Plasma-Lyt e A ) Magnesium No Notes: Memori a Sulfate 3-25 WASTE: F/P l 22:37: - Sink; E [place] - Municipal Trash Bin Isolyte S No Notes: Memori a PH-7.4 3-25 (Same as: l (Bolus) IV 22:37: Isolyte S [place] 00 PH7.4, Normosol-R PH 7.4, Plasma-Lyt e A ) Magnesium No Notes: Memori a Sulfate 3-25 WASTE: F/P l 22:37: - Sink; E Jason - Municipal Trash Bin Iohexol No 100 mL, Memoria 10-06 Route: l 20:04: IVP, Drug [place] 00 Form: SOLN, Dosing Weight 127.727, kg, ONCALL, STAT, Start date: 10/06/21 15:04:00 CDT, Duration: 1 doses or times, Dose = 2.2ml/kg, Max dose = 100ml -- "To be infused by Radiology Staff ONLY" Iohexol No 100 mL, Memoria 10-06 Route: l 20:04: IVP, Drug Jason Form: SOLN, Dosing Weight 127.727, kg, ONCALL, STAT, Start date: 10/06/21 15:04:00 CDT, Duration: 1 doses or times, Dose = 2.2ml/kg, Max dose = 100ml -- "To be infused by Radiology Staff ONLY" Docusate No Notes: Memoria 3-25 (Same as: l 14:00: Colace) (Do Not Crush) sennosides, No Notes: Erwin benjamin INTERMEDIATE 3-25 (Same as: l 14:00: Senokot) Saline No Notes: Memoria Flush 0.9% 3-25 preservati l 14:00: ve free. Docusate No Notes: Memoria 3-25 (Same as: l 14:00: Colace) (Do Not Crush) sennosides, No Notes: Erwin benjamin INTERMEDIATE 3-25 (Same as: l 14:00: Senokot) Saline No [...] (0.5 mL IM) Shake well before use influenza Yes Notes: Memori a virus 3-25 [...] benjamin ol 3-25 (Same l 06:05: as:Robaxin Jason 00 ) Lorazepam No Notes: Memori a 3-25 (Same as: l 06:05: Ativan) Methocarbam No Notes: Erwin benjamin ol 3-25 (Same l 06:05: as:Robaxin Jason 00 ) Sodium No 1,000 mL, Memori a Chloride 3-25 Rate: 50 l 0.9% IV 06:03: ml/hr, [place] 1,000 mL 00 Infuse over: 20 hr, [...] Do M emoria en 325 MG / 3-25 not exceed l Hydrocodone 06:03: 4gm/day of Jason Bitartrate 00 acetaminop 10 MG Oral hen. (Same Tablet as: [place] [[place] 325/10) 10/325] Dilaudid No Notes: Memoria 3-25 Same as l 06:03: Dilaudid Benadryl No Notes: Memoria 3-25 (Same as: l 06:03: Benadryl) [place] 00 phenol No Notes: Memoria 3-25 Chlorasept l 06:03: ic Bruce (Same as: Chlorasept ic, Sore Throat Bruce) WASTE: F/P - Black; E - Municipal Trash Bin Bisacodyl No Notes: Memori a 3-25 (Same As: l 06:03: Dulcolax, [place] 00 Bisco-Lax) Robaxin No Notes: Memoria 3-25 (Same l 06:03: as:Robaxin ) Melatonin 3 No Notes: Erwin benjamin MG Extended 3-25 (Same as: l Release 06:03: Melatonin) Herm carly Tablet 00 Tylenol No Notes: Do Memor ia 3-25 not exceed l 06:03: 4 gm/day. [place] 00 (Same as: Tylenol) Reglan No Notes: Memoria 3-25 (Same as: l 06:03: Reglan) [place] Phenergan No Notes: Do Mem oria 3-25 not give l 06:03: IV push. Jason (Same as: Phenergan) Saline No Notes: Memoria Flush 0.9% 3-25 preservati l 06:03: ve free. [place] 00 Sodium No 1,000 mL, Memori a Chloride 3-25 Rate: 50 l 0.9% IV 06:03: ml/hr, [place] 1,000 mL 00 Infuse over: 20 hr, [...] Memori a 3-25 years, l 06:03: Pediatric Jason 00 Dosing Acetaminoph No Notes: Do M emoria en 325 MG / 3-25 not exceed l Hydrocodone 06:03: 4gm/day of [place] Bitartrate 00 acetaminop 10 MG Oral hen. (Same Tablet as: [place] [[place] 325/10) 10/325] Dilaudid No Notes: Memoria 3-25 Same as l 06:03: Dilaudid Benadryl No Notes: Memoria 3-25 (Same as: l 06:03: Benadryl) [place] phenol No Notes: Memoria 3-25 Chlorasept l 06:03: ic Bruce (Same as: Chlorasept ic, Sore Throat Bruce) WASTE: F/P - Black; E - Municipal Trash Bin Bisacodyl No Notes: Memori a 3-25 (Same As: l 06:03: Dulcolax, Bisco-Lax) Robaxin No Notes: Memoria 3-25 (Same l 06:03: as:Robaxin ) Melatonin 3 No Notes: Erwin benjamin MG Extended -25 (Same as: l Release 06:03: Melatonin) carly 00 Tylenol No Notes: Do Memor ia 3-25 not exceed l 06:03: 4 gm/day. (Same as: Tylenol) Reglan No Notes: Memoria 3-25 (Same as: l 06:03: Reglan) Phenergan No Notes: Do Mem oria 3-25 [...] at 999 Univ ers (NS) bolus 09-29 03-18 mL/hr, 500 it y of infusion 02:30: [...] by (Faculty): ADC PROVIDER levoFLOXaci 2021- No [id number] 750mg Take 1 Univers n 750 mg 08-09 tablet by ity o f tablet 00:00: 05:59 mouth [place] 00 :00 daily for Medical 4 days. Branch levoFLOXaci 2021- No [id number] 750mg Take 1 Univers n 750 mg 08-09 tablet by ity o f tablet 00:00: 05:59 mouth [place] 00 :00 daily for Medical 4 days. Branch OXYCODONE Yes Take by Unive rs HCL/ACETAMI 1-25 mouth. ity of NOPHEN 19:49: [place] (PERCOCET 27 Medical ORAL) Branch OXYCODONE 0 Yes Take by Unive rs HCL/ACETAMI 1-25 mouth. ity of NOPHEN 19:49: [place] (PERCOCET 27 Medical ORAL) Branch OXYCODONE Yes Take by Unive rs HCL/ACETAMI 1-25 mouth. ity of NOPHEN 19:49: [place] (PERCOCET 27 Medical ORAL) [place] OXYCODONE Yes Take by Univ rs HCL/ACETAMI 25 mouth. ity of NOPHEN 19:49: [place] (PERCOCET 27 Medical ORAL) [place] vancomycin 2021- No 125mg 125 mg, Un [...] of therapy: 72 hours lactobacill 2021- No [id number] .5mg Take 1 Univers us 08-08-25 tablet by ity of acidophilus 00:00: 05:59 mouth 2 [place] 00 :00 (two) Medical times Branch daily for 30 days. lactobacill 2021- No [id number] .5mg Take 1 Univers us 08-08 02-25 tablet by ity of acidophilus 00:00: 05:59 mouth 2 [place] 00 :00 (two) Medical times Branch daily for 30 days. vancomycin 2021- No [id number] 125mg Take 1 Univers 125 mg 08-08 capsule by ity of capsule 00:00: 05:59 mouth 4 [place] 00 :00 (four) Medical times Branch daily for 5 days. vancomycin 2021- No [id number] 125mg Take 1 Univers 125 mg 08-08 [...] al (NS) 50 mL First dose [facility] MINI-BAG on 08/05/21 at 0945, Until [...] 08/04/21 at 2000, Until Discontinu ed, SAHARA
member of congress approving Non-formul shanelle medication : MEGADC
Reason [...] 1-20 Oral, ity of (TYLENOL) 09:07: Q6HPRN, [place] tablet 650 10 Starting Medic al mg [...] [place] mg 00 :00 dose, On Medical [facility] Branch 07/31/21 at 2130, SAHARA
Re [...] 00 :00 dose, On Medical NaCl 0.9% [facility] Branch (NS) 50 mL 07/31/21 at piggyback 1915, 50 mL cefdinir 2021- No [id number] 300mg Take 1 U nivers 300 mg 07-31 capsule by ity of capsule 00:00: 05:59 mouth [place] 00 :00 every 12 Medical (twelve) Branch hours for 10 days. cefdinir 2021- No [id number] 300mg Take 1 U nivers 300 mg [...] 07/29/21 at 1645, Routine methocarbam 2021-0 Yes [id number] 1000mg Take 2 Univers oL 500 mg 1-15 tablets by ity of tablet 00:00: mouth 4 00 (four) Medical times Branch daily as needed for Pain (scale 1-3). methocarbam 202-0 Yes [id number] 1000mg Take 2 Univers oL 500 mg 1-15 tablets by ity of tablet 00:00: mouth 4 [place] 00 (four) Medical times Branch daily as needed for Pain (scale 1-3). methocarbam Yes [id number] 1000mg Take 2 Univers oL 500 mg 1-15 tablets by ity of tablet 00:00: mouth 4 00 (four) Medical times Branch daily as needed for Pain (scale 1-3). methocarbam Yes [id number] 1000mg Take 2 Univers oL 500 mg 1-15 tablets by ity of tablet 00:00: mouth 4 00 (four) Medical times Branch daily as needed for Pain (scale 1-3). methocarbam Yes [id number] 1000mg Take 2 Univers oL 500 mg 1-15 tablets by ity of tablet 00:00: mouth 4 00 (four) Medical times Branch daily as needed for Pain (scale 1-3). methocarbam Yes [id number] 1000mg Take 2 Univers oL 500 mg 1-15 tablets by ity of tablet 00:00: mouth 4 00 (four) Medical times Branch daily as needed for Pain (scale 1-3). methocarbam 2021- No [id number] 1000mg Take 2 Univers oL 500 mg [...] PF 2020-07- No 75ug 75 mcg, Un ela (SUBLIMAZE 08-07 Slow IV ity o f (PF)) 22:15: 22:20 Push, [place] injection 00 :00 ONCE, 1 Medical 75 mcg dose, On Branch 06/07/21 at 1615, Routine fidaxomicin 2020-07 Yes [id number] 200mg Take 1 Univers 200 mg 1-24 tablet by ity of tablet 00:00: mouth 2 (two) Medical times Branch daily. proMETHazin 2020-07 Yes [id number] 25mg Take 1 Univers e 25 mg 1-24 tablet by ity of tablet 00:00: mouth 00 every 6 Medical (six) Branch hours as needed for Nausea and Vomiting (N/V). fidaxomicin 2020-07 Yes [id number] 200mg Take 1 Univers 200 mg 1-24 tablet by ity of tablet 00:00: mouth 2 00 (two) Medical times Branch daily. proMETHazin 2020-07 Yes [id number] 25mg Take 1 Univers e 25 mg 1-24 tablet by ity of tablet 00:00: mouth [place] 00 every 6 Medical (six) Branch hours as needed for Nausea and Vomiting (N/V). cholestyram 2020-07 Yes Univer s ine 4 gram 1-24 ity of packet 00:00: [place] Medical Branch fidaxomicin 2020-07 Yes [id number] 200mg Take 1 Univers 200 mg 1-24 tablet by ity of tablet 00:00: mouth 2 (two) Medical times Branch daily. proMETHazin 2020-07 Yes [id number] 25mg Take 1 Univers e 25 mg [...] gram 1-24 ity of packet 00:00: [place] 00 Medical Branch cholestyram 2020-07 Yes Univer s ine 4 gram 1-24 ity of packet 00:00: [place] Medical Branch fidaxomicin 2020-07 Yes [id number] 200mg Take 1 Univers 200 mg 1-24 tablet by ity of tablet 00:00: mouth 2 00 (two) Medical times Branch daily. proMETHazin 2020-07 Yes [id number] 25mg Take 1 Univers e 25 mg 1-24 tablet by ity of tablet 00:00: mouth [place] 00 every 6 Medical (six) Branch hours as needed for Nausea and Vomiting (N/V). cholestyram 2020-07 No Unive rs ine 4 gram 08-07- ity of packet 00:00: 00:00 [place] 00 :00 Medical Branch fidaxomicin 2020-07- No [id number] 200mg Take 1 Univers 200 mg 08-07 tablet by ity of tablet 00:00: 00:00 mouth 2 [place] 00 :00 (two) Medical times Branch daily. proMETHazin 2020-07- No [id number] 25mg Take 1 Univers e 25 mg 08-0725 tablet by ity of tablet 00:00: 00:00 mouth [place] 00 :00 every 6 Medical (six) Branch hours as needed for Nausea and Vomiting (N/V). FENTanyl PF 2020- No 50ug 50 mcg, Un ela (SUBLIMAZE 11-21 05-10 Intravenou it y of (PF)) 02:45: 01:34 s, ONCE, 1 [place] injection 00 :00 dose, [place] Medic al 50 mcg 11/20/20 at Branch 2145, Routine cefTRIAXone No 1000mg 1,000 mg, Univers (ROCEPHIN) 11-21 05-10 IV ity of 1,000 mg in 02:30: 01:55 Piggyback, [place] NaCl 0.9% 00 :00 ONCE, 1 Medical (NS) 50 mL dose, [facility] ch MINI-BAG 11/20/20 at 2130, 50 mL
Reas on for Anti-Infec tive: Documented Infection< br>Documen lester Infection Site: Urine
D uration of Therapy: 7 days famotidine No 20mg 20 mg, Univ ers (PEPCID 5-10 05-10 Slow IV ity of (PF)) 01:00: 00:12 Push, [place] injection 00 :00 ONCE, 1 Medical 20 mg dose, [place] Branch 11/20/20 at 2000, SAHARA proMETHazin 2020- No 25mg 25 mg, IV Univers e 5-10 05-10 Piggyback, ity of (PHENERGAN) 00:45: 00:11 ONCE, 1 [place] 25 mg in 00 :00 dose, [facility] l NaCl 0.9% 11/20/20 at Bran h (NS) 50 mL 1945, 50 piggyback mL FENTanyl PF No 50ug 50 mcg, Un ela (SUBLIMAZE 5-10 05-10 Intravenou it y of (PF)) 00:45: 00:12 s, ONCE, 1 [place] injection 00 :00 dose, [facility] Medic al 50 mcg 11/20/20 at Branch 1945, Routine NaCl 0.9% 2020- No 1000mL at 999 Uni vers (NS) bolus 5-10 05-10 mL/hr, ity of infusion 00:00: 01:47 1,000 mL, Tim as 1,000 mL 00 :00 IV Medical Infusion, [place] ONCE, 1 dose, [place] 11/20/20 at 1900, SAHARA cefdinir 2020- No [id number] 300mg Take 1 U nivers 300 mg 11-20 05-20 capsule by ity of capsule 00:00: 04:59 mouth 2 [place] 00 :00 (two) Medical times [place] daily for 10 days. buPROPion No 150mg [...] [facility] cetaminophe 1-16 tablet by Cahrly es n 14:44: mouth Medical (PERCOCET) 50 every 4 Center 10-325 mg (four) per tablet hours as needed for Pain. oxyCODONE-a Yes 1{tbl} Take [address] cetaminophe 1-16 tablet by Charly es n 14:44: mouth Medical (PERCOCET) 50 every 4 Center 10-325 mg (four) per tablet hours as needed for Pain. oxyCODONE-a 2020-0 Yes 1{tbl} Take [address] cetaminophe 1-16 tablet by Charly es n 14:44: mouth Medical (PERCOCET) 50 every 4 Center 10-325 mg (four) per tablet hours as needed for Pain. zinc 2020-0 Yes 5g Q.5D Apply 5 [...] Total Volume: 1,000, Start date: 05/22/18 5:04:00 MEDICAL TECHNOLOGIST, Duration: 30 day, Stop date: 06/21/18 5:03:00 MEDICAL TECHNOLOGIST, 2.4, m2 normal 2017-07 No 1,000 mL, Memori a saline 0.9% 08 Rate: 100 l IV 1,000 mL 11:04: ml/hr, Herm carly 00 Infuse over: 10 hr, Route: IV, Dosing Weight 131.818 kg, Total Volume: 1,000, Start date: 05/22/18 5:04:00 MEDICAL TECHNOLOGIST, Duration: 30 day, Stop date: 06/21/18 5:03:00 MEDICAL TECHNOLOGIST, 2.4, m2 Magnesium 2017-07 No Notes: Memori a Sulfate 07-22 WASTE: F/P l 10:36: - Sink; E [place] - Municipal Trash Bin Isolyte S 2017-07 No Notes: Memori a PH-7.4 07-22 (Same as: l (Bolus) IV 10:36: Isolyte S rm PH 7.4) Magnesium 2017-07 No Notes: Memori a Sulfate 07-22 WASTE: F/P l 10:36: - Sink; E [place] - Municipal Trash Bin Laci S 2017-07 No Notes: Memori a PH-7.4 07-22 (Same as: l (Bolus) IV 10:36: Isolkaro S rm 00 PH 7.4) Phenergan 2017-07 No 12.5 mg, Erwin benjamin 1-08 0.5 mL, l 10:35: Route: Jason 00 IVPB, Drug form: INJ, ONCE, Dosing Weight 131.818, kg, Priority: STAT, Start date: 05/22/18 4:35:00 MEDICAL TECHNOLOGIST, Stop date: 05/22/18 4:35:00 MEDICAL TECHNOLOGIST Phenergan 2017-07 No 12.5 mg, Erwin benjamin 1-08 0.5 mL, l 10:35: Route: [place] 00 IVPB, Drug form: INJ, ONCE, Dosing Weight 131.818, kg, Priority: STAT, Start date: 05/22/18 4:35:00 MEDICAL TECHNOLOGIST, Stop date: 05/22/18 4:35:00 MEDICAL TECHNOLOGIST Wellbutrin Wellbutrin 2017-07 No 1{table BID Wellbutrin SR 150 MG SR 150 MG 0-04 t_in_th SR 150 MG 00:00: e_morni 00 ng} Wellbutrin Wellbutrin 2017-07 No 1{table BID Wellbutrin SR 150 MG SR 150 MG 0-04 t_in_th SR 150 MG 00:00: e_morni 00 ng} Wellbutrin Wellbutrin 2017-07 No 1{table BID SR 150 MG SR 150 MG 0-04 t_in_th 00:00: e_morni 00 ng} Wellbutrin Wellbutrin 2017-07 No 1{table BID Wellbutrin SR 150 MG SR 150 MG 0-04 t_in_th SR 150 MG 00:00: e_morni 00 ng} Wellbutrin Wellbutrin 2017- No 1{table BID Wellbutrin SR 150 MG SR 150 MG 0-04 t_in_th SR 150 MG 00:00: e_morni 00 ng} Wellbutrin Wellbutrin 2017-07 No 1{table BID Wellbutrin SR 150 MG SR 150 MG 0-04 t_in_th SR 150 MG 00:00: e_morni 00 ng} Wellbutrin Wellbutrin 2017-07 No 1{table BID Wellbutrin SR 150 MG SR 150 MG 0-04 t_in_th SR 150 MG 00:00: e_morni 00 ng} Citalopram Citalopram Yes Na Gamble 1 tablet Common Hydrobromid Hydrobromid 7-16 S pirit e e 00:00: - [facility] Seroquel Seroquel Yes Na Gamble 1 tablet Common 7-16 Spirit 00:00: - [facility] Docusate Yes 100 mg = 1 Mem oria Sodium 100 5-08 cap, PO, l MG Oral 14:56: BID, 0 [place] Capsule 00 Refill(s) Zosyn Yes 0 Memoria 5-08 Refill(s) l 14:56: [place] 00 celecoxib Yes 200 mg = 1 Me moria 200 mg oral 5-08 cap, PO, l capsule 14:56: BID, 0 [place] 00 Refill(s) ascorbic Yes 500 mg = 1 Mem oria acid 5-08 tab, PO, l 14:56: BID, 0 [place] 00 Refill(s) acetaminoph Yes 1,000 mg = [...] 0 Christian n capsule 00 Refill(s) multivitami 0 Yes 1 tab, PO, Memoria n 5-08 [...] 5-08 TOP, l de 0.05 14:56: Daily, [place] MG/MG 00 Remove Transdermal after 12 Patch hours, 0 [Lidoderm] Refill(s) Docusate Yes 100 mg = 1 Mem oria Sodium 100 5-08 cap, PO, l MG Oral 14:56: BID, 0 [place] Capsule 00 Refill(s) Zosyn Yes 0 Memoria 5-08 Refill(s) l 14:56: [place] 00 celecoxib Yes 200 mg = 1 Me moria 200 mg oral 5-08 cap, PO, l capsule 14:56: BID, 0 [place] 00 Refill(s) ascorbic Yes 500 mg = [...] tab, PO, l tablet 14:56: Q8H, PRN [place] 00 Anxiety, 0 Refill(s) Lidocaine Yes 3 patch, Erwin benjamin Hydrochlori 5-08 TOP, l de 0.05 14:56: Daily, [place] MG/MG 00 Remove Transdermal after 12 Patch hours, 0 [Lidoderm] Refill(s) Robaxin No Notes: Memoria 5-06 (Same l 21:00: as:Robaxin [place] ) Robaxin No Notes: Memoria 5-06 (Same [...] (Same as: l 15:18: Ativan) [place] 00 Ativan No Notes: Memoria 5-06 (Same as: l 15:18: Ativan) [place] 00 Trazodone No Notes: Memori a Hydrochlori [...] patch 5-06 Remove l 02:00: patch 12 [place] 00 hours after applicatio n each day. Oxycodone No Notes: Memori a Hydrochlori 5-05 (Same as: l de 5 MG 22:01: Roxicodone Herm carly Oral Tablet 00 ) Oxycodone No Notes: Memori a Hydrochlori 5-05 (Same as: l de 5 MG 22:01: Roxicodone Herm carly Oral Tablet 00 ) Celebrex No Notes: Memoria 5-05 NSAID. l 22:00: Please [place] 00 check indication . Not for seizure. (Same As: CeleBREX) Celebrex No Notes: Memoria 5-05 NSAID. l 22:00: Please [place] 00 check indication . Not for seizure. (Same As: CeleBREX) Vancomycin No 2000 mg: Me moria 5-05 infuse l 21:00: over 2.5 Jason 00 hours Vancomycin No 2000 mg: Me moria 5-05 infuse l 21:00: over 2.5 [place] 00 hours Lidocaine No Notes: Memori a [...] 5-04 not give l 22:40: IV push. [place] (Same as: Phenergan) Dilaudid No Notes: Memoria 5-04 Same as l 22:40: Dilaudid [place] 00 Phenergan No Notes: Do Mem oria 5-04 not give l 22:40: IV push. [place] (Same as: Phenergan) Dilaudid No Notes: Memoria 5-04 Same as l 22:40: Dilaudid Tramadol No Notes: Not Mem oria 5-04 to exceed l 22:00: 400mg/day. [place] (Same As: Ultram) gabapentin No Notes: Memor ia 5-04 (Same as: l 22:00: Neurontin) Acetaminoph No Notes: Max Memoria en -04 acetaminop l 22:00: hen 4000 [place] 00 mg/day (4 gm/day). (Same as: Tylenol Extra Strength) Robaxin No Notes: Memoria 5-04 (Same l 22:00: as:Robaxin [place] ) Tramadol No Notes: Not Mem oria 5-04 to exceed l 22:00: 400mg/day. [place] 00 (Same As: Ultram) gabapentin No Notes: Memor ia 5-04 (Same as: l 22:00: Neurontin) [place] Acetaminoph No Notes: Max Memoria en 5-04 acetaminop l 22:00: hen 4000 [place] 00 mg/day (4 gm/day). (Same as: Tylenol Extra Strength) Robaxin No Notes: Memoria 5-04 (Same l 22:00: as:Robaxin [place] ) Oxycodone No Notes: Memori a Hydrochlori 5-04 (Same as: l de 5 MG 21:33: Roxicodone Herm carly Oral Tablet 00 ) Oxycodone No Notes: Memori a Hydrochlori 5-04 (Same as: l de 5 MG 21:33: Roxicodone Herm carly Oral Tablet 00 ) Beneprotein No Notes: Erwin benjamin 7 gm pkt 5-04 (Same as: l 21:30: Beneprotei [place] 00 n) Beneprotein No Notes: Erwin benjamin 7 gm pkt 5-04 (Same as: l 21:30: Beneprotei [place] 00 n) Acetaminoph No 1 tab, PO, [...] a 5-04 0.25 mL, l 16:01: Route: [place] 00 IVP, Drug form: INJ, ONCE, Start [...] Memoria Sulfate 5-04 (Zinc l 14:00: sulfate Jason 00 capsule) - 220 mg Zinc sulfate = 50 mg elemental zinc Same as Zinc Sulfate ascorbic No Notes: Memoria acid -04 (Same as: l 14:00: Vitamin C) [place] 00 multivitami No Notes: Erwin benjamin n - (Same l 14:00: as:Thera) WASTE: F/P - Black; E - Municipal Trash Bin Take with food. Naproxen No Notes: Memoria 5-04 (Same as: l 07:00: Naprosyn) [place] 00 Take with food. Zosyn No Notes: Memoria 5-04 (Same as: l 07:00: Zosyn) [place] 00 Dosing based on Piperacill in component [...] ia -04 (Same as: l 07:00: Lovenox) [place] Naproxen No Notes: Memoria 5-04 (Same as: l 07:00: Naprosyn) Jason Take with food. Zosyn No Notes: Memoria -04 (Same as: l 07:00: Zosyn) [place] Dosing based on Piperacill in component MEDICATION WASTE Product Size: 3375 mg Product Wasted: ___ mg Vancomycin 2017- No 2001 mg: Me moria 5-04 infuse l 07:00: over 2.5 [place] 00 hours For adult patients only: Round to nearest 250 mg per Medical Staff approval MEDICATION WASTE Product Size: 1000 mg Product Wasted: ___ mg Enoxaparin No Notes: Memor ia 5-04 (Same as: l 07:00: Lovenox) [place] 00 Sodium No 1,000 mL, Memori a Chloride 5-04 Rate: 125 l 0.9% IV 06:46: ml/hr, [place] 1,000 mL 00 Infuse over: 8 hr, [...] / 5-04 (Same as: l Hydrocodone 06:46: [place] Kristen nn Bitartrate 00 325/5) Do 5 [...] / 5-04 (Same as: l Hydrocodone 06:46: [place] Kristen nn Bitartrate 00 325/5) Do 5 MG Oral not exceed Tablet 4gm/day of acetaminop hen. Reglan No Notes: Memoria 5-04 (Same as: l 04:27: Reglan) [place] 00 Benadryl No Notes: Memoria 5-04 (Same as: l 04:27: Benadryl) [place] Reglan No Notes: Memoria 5-04 (Same as: l 04:27: Reglan) [place] Benadryl No Notes: Memoria 5-04 (Same as: l 04:27: Benadryl) [place] Magnesium No Notes: Memori a Sulfate 5-04 WASTE: F/P l 04:26: - Sink; E [place] - Municipal Trash Bin Sodium No 1,000 mL, Memori a Chloride 5-04 1000 l 0.9% 04:26: ml/hr, [place] (Bolus) IV 00 Infuse Over: 1 hr, Route: IV, 1,000, Drug form: INJ, ONCE, Priority: STAT, Dosing Weight 127.273 kg, Start date: 11/14/17 23:26:00 CDT, Stop date: 11/14/17 23:26:00 CDT Magnesium No Notes: Memori a Sulfate 5-04 WASTE: F/P l 04:26: - Sink; E [place] - Municipal Trash Bin Sodium No 1,000 mL, Memori a Chloride 5-04 1000 l 0.9% 04:26: ml/hr, Jason (Bolus) IV 00 Infuse Over: 1 hr, Route: IV, 1,000, Drug form: INJ, ONCE, Priority: STAT, Dosing Weight 127.273 kg, Start date: 11/14/17 23:26:00 CDT, Stop date: 11/14/17 23:26:00 CDT Zosyn 2017- No 4.5 gm, Memoria 5-04 Route: l 04:10: IVPB, [place] 00 ONCE, Dosing Weight 127.273, kg, Priority: STAT, Start date: 11/14/17 23:10:00 CDT, Stop date: 11/14/17 23:10:00 CDT, ABX Indication : Bacteremia Vancomycin 2017- No 2000 mg: Me moria 5-04 infuse l 04:10: over 2.5 [place] 00 hours For adult patients only: Round to nearest 250 mg per Medical Staff approval MEDICATION WASTE Product Size: 1000 mg Product Wasted: ___ mg Zosyn No 4.5 gm, Memoria 11-15 Route: l 04:10: IVPB, [place] 00 ONCE, Dosing Weight 127.273, kg, Priority: [...] Strength) Acetaminoph No Notes: Max Memoria en -04 acetaminop l 02:56: hen 4000 [place] 00 mg/day (4 gm/day). (Same as: Tylenol Extra Strength) Rocephin No Notes: Memoria -04 (Same As: l 02:21: Rocephin). Jason 00 MEDICATION WASTE Product Size: 1000 mg Product Wasted: _0__ mg Rocephin 2017-0 No Notes: Memoria 5-04 (Same As: l 02:21: Rocephin). Jason 00 MEDICATION WASTE Product Size: 1000 mg Product Wasted: _0__ mg Morphine 2018-0 No 4 mg, Memoria 5- Route: l 00:05: IVP, ONCE, Dosing Weight 127.273, kg, Priority: STAT, Start date: 11/14/17 19:05:00 CDT, Stop date: 11/14/17 19:05:00 CDT Morphine 2017-0 No 4 mg, Memoria 5- Route: l 00:05: IVP, ONCE, Dosing Weight 127.273, kg, Priority: STAT, Start date: 11/14/17 19:05:00 CDT, Stop date: 11/14/17 19:05:00 CDT Benadryl 2017-0 No Notes: Memoria 5-03 (Same as: l 23:14: Benadryl) Benadryl No Notes: Memoria 5-03 (Same as: l 23:14: Benadryl) Benadryl 0 No Notes: Memoria 5-03 (Same as: l 22:56: Benadryl) Morphine 2017-0 No 4 mg, 1 Memori a 5-03 mL, Route: l 22:56: IVP, Drug form: SOLN, ONCE, Dosing Weight 127.273, kg, Priority: STAT, Start date: 11/14/17 17:56:00 CDT, Stop date: 11/14/17 17:56:00 CDT Benadryl 2017-0 No Notes: Memoria 5-03 (Same as: l 22:56: Benadryl) Morphine 2017-0 No 4 mg, 1 Memori a 5-03 mL, Route: l 22:56: IVP, Drug form: SOLN, ONCE, Dosing Weight 127.273, kg, Priority: STAT, Start date: 11/14/17 17:56:00 CDT, Stop date: 11/14/17 17:56:00 CDT OXYCODONE 2016-07 Yes Take by Unive rs HCL/ACETAMI 2-20 mouth. ity of NOPHEN 10:03: [place] (PERCOCET 17 Medical ORAL) [place] OXYCODONE 2016-07 Yes Take by Unive rs HCL/ACETAMI 2-20 mouth. ity of NOPHEN 04:03: [place] (PERCOCET 17 Medical ORAL) Branch OXYCODONE 2016-07 Yes Take by Unive rs HCL/ACETAMI 2-20 mouth. ity of NOPHEN 04:03: [place] (PERCOCET 17 Medical ORAL) Branch OXYCODONE 2016-07 Yes Take by Unive rs HCL/ACETAMI 2-20 mouth. ity of NOPHEN 04:03: [place] (PERCOCET 17 Medical ORAL) [place] OXYCODONE 2016-07 Yes Take by Unive rs HCL/ACETAMI 2-20 mouth. ity of NOPHEN 04:03: [place] (PERCOCET 17 Medical ORAL) Branch dicyclomine 2016-07 [...] :00 (four) Medical times Branch daily. proMETHazin 2017-0 Yes 25mg Take 1 Univ [...] (N/V) for up to 12 doses. proMETHazin 2016-2021- No 25mg Take 1 Uni vers e 25 mg 1-04 05-11 tablet by ity of tablet 00:00: 00:00 mouth [place] 00 :00 every 6 Medical (six) Branch hours as needed for Nausea and Vomiting (N/V) for up to 12 doses. SEROquel 25 SEROquel 25 No 1{table SEROquel MG MG t} 25 MG Macrobid Macrobid No 1{capsu BID Macrobid 100 MG 100 MG le_with 100 MG _food} Pantoprazol Pantoprazol No 1{table QD Pantoprazo e Sodium 40 e Sodium 40 t} le Sodium MG MG 40 MG Tylenol Tylenol No 1{table QID Tylenol with with t_as_ne with Codeine #4 Codeine #4 eded} Codeine #4 300-60 MG 300-60 MG 300-60 MG Collagenase Collagenase No 1{appli QD Collagenas 250 UNIT/GM 250 UNIT/GM cation_ e 250 to_affe UNIT/GM cted_ar ea} SEROquel 25 SEROquel 25 No 1{table SEROquel MG MG t} 25 MG Macrobid Macrobid No 1{capsu BID Macrobid 100 MG 100 MG le_with 100 MG _food} Tylenol Tylenol Yes Na Gamble 1 tablet Co mmon with with as needed Spirit Codeine #4 Codeine #4 - [facility] Macrobid Macrobid Yes Na Gamble 1 capsule Common with food [facility] Pantoprazol Pantoprazol Yes Na Gamble 1 tablet Common e Sodium e Sodium [facility] Collagenase Collagenase Yes Na Gamble 1 Common applicatio Spirit n to - [facility] Pantoprazol Pantoprazol No 1{table QD Pantoprazo e Sodium 40 e Sodium 40 t} le Sodium MG MG 40 MG Tylenol Tylenol No 1{table QID Tylenol with with t_as_ne with Codeine #4 Codeine #4 eded} Codeine #4 300-60 MG 300-60 MG 300-60 MG Collagenase Collagenase No 1{appli QD Collagenas 250 UNIT/GM 250 UNIT/GM cation_ e 250 to_affe UNIT/GM cted_ar ea} Tylenol Tylenol No 1{table QID Tylenol with with t_as_ne with Codeine #4 Codeine #4 eded} Codeine #4 300-60 MG 300-60 MG 300-60 MG Pantoprazol Pantoprazol No 1{table QD Pantoprazo e Sodium 40 e Sodium 40 t} le Sodium MG MG 40 MG SEROquel 25 SEROquel 25 No 1{table SEROquel MG MG t} 25 MG Collagenase Collagenase No 1{appli QD Collagenas 250 UNIT/GM 250 UNIT/GM cation_ e 250 to_affe UNIT/GM cted_ar ea} Macrobid Macrobid No 1{capsu BID Macrobid 100 MG 100 MG le_with 100 MG _food} Tylenol Tylenol No 1{table QID with with t_as_ne Codeine #4 Codeine #4 eded} 300-60 MG 300-60 MG Pantoprazol Pantoprazol No 1{table QD e Sodium 40 e Sodium 40 t} MG MG SEROquel 25 SEROquel 25 No 1{table MG MG t} Collagenase Collagenase No 1{appli QD 250 UNIT/GM 250 UNIT/GM cation_ to_affe cted_ar ea} Macrobid Macrobid No 1{capsu BID 100 MG 100 MG le_with _food} SEROquel 25 SEROquel 25 No 1{table SEROquel MG MG t} 25 MG Macrobid Macrobid No 1{capsu BID Macrobid 100 MG 100 MG le_with 100 MG _food} Collagenase Collagenase No 1{appli QD Collagenas 250 UNIT/GM 250 UNIT/GM cation_ e 250 to_affe UNIT/GM cted_ar ea} Pantoprazol Pantoprazol No 1{table QD Pantoprazo e Sodium 40 e Sodium 40 t} le Sodium MG MG 40 MG Tylenol Tylenol No 1{table QID Tylenol with with t_as_ne with Codeine #4 Codeine #4 eded} Codeine #4 300-60 MG 300-60 MG 300-60 MG Tylenol Tylenol No 1{table QID Tylenol with with t_as_ne with Codeine #4 Codeine #4 eded} Codeine #4 300-60 MG 300-60 MG 300-60 MG Collagenase Collagenase No 1{appli QD Collagenas 250 UNIT/GM 250 UNIT/GM cation_ e 250 to_affe UNIT/GM cted_ar ea} Pantoprazol Pantoprazol No 1{table QD Pantoprazo e Sodium 40 e Sodium 40 t} le Sodium MG MG 40 MG Macrobid Macrobid No 1{capsu BID Macrobid 100 MG 100 MG le_with 100 MG _food} SEROquel 25 SEROquel 25 No 1{table SEROquel MG MG t} 25 MG Tylenol Tylenol No 1{table QID Tylenol with with t_as_ne with Codeine #4 Codeine #4 eded} Codeine #4 300-60 MG 300-60 MG 300-60 MG Collagenase Collagenase No 1{appli QD Collagenas 250 UNIT/GM 250 UNIT/GM cation_ e 250 to_affe UNIT/GM cted_ar ea} Pantoprazol Pantoprazol No 1{table QD Pantoprazo e Sodium 40 e Sodium 40 t} le Sodium MG MG 40 MG Macrobid Macrobid No 1{capsu BID Macrobid 100 MG 100 MG le_with 100 MG _food} SEROquel 25 SEROquel 25 No 1{table SEROquel MG MG t} 25 MG Immunizations Ordered Filled Immunization Date Status Comments Sourc e Immunization Name Name SARS-COV-2 COVID-19 2021-01-01 Completed [facility], [id number], 00:00:00 [facility] VACC[facility] SARS-COV-2 COVID-19 2020-02-01 Completed [facility] 12+ YRS 00:00:00 [place] [facility] SARS-COV-2 COVID-19 2020-01-02 Completed [facility] of [facility] 12+ YRS 00:00:00 [facility] Vital Signs Vital Name Observation Time Observation Value Comments Source Systolic blood 2022-05-21 18:00:00 136 mm[Hg] Univer sity of pressure [facility] Diastolic blood 2022-05-21 18:00:00 92 mm[Hg] Unive rsity of pressure [facility] Heart rate 2022-05-21 18:00:00 99 /min [facility] Body temperature 2022-05-21 18:00:00 35.83 Abi [facility] ersity [facility] Respiratory rate 2022-05-21 18:00:00 18 /min [facility] in 2022-05-21 18:00:00 95 /min [facility] Arterial blood by [facility] Pulse oximetry Branch Body weight 2022-05-21 10:45:00 135.988 kg [facility] BMI 2022-05-21 10:45:00 60.55 kg/m2 [facility] Body height 2022-05-21 02:02:00 149.9 cm [facility] Systolic blood 2022-05-15 01:11:00 166 mm[Hg] Univer sity of pressure [facility] Diastolic blood 2022-05-15 01:11:00 93 mm[Hg] Unive rsity of pressure [facility] Heart rate 2022-05-15 01:09:00 106 /min [facility] Body temperature 2022-05-15 01:09:00 36.89 Abi [facility] of [facility] Respiratory rate 2022-05-15 01:09:00 20 /min [facility] Body weight 2022-05-15 01:09:00 127.007 kg [facility] BMI 2022-05-15 01:09:00 56.55 kg/m2 [facility] Oxygen saturation in 2022-05-15 01:09:00 96 /min [facility] blood by [place] [facility] Systolic blood 2022-05-13 03:00:00 138 mm[Hg] Univer [facility]ity of pressure [facility] Diastolic blood 2022-05-13 03:00:00 82 mm[Hg] [facility] rs[facility] of pressure [facility] Heart rate 2022-05-13 03:00:00 102 /min [facility] Respiratory rate 2022-05-13 03:00:00 20 /min [facility] Oxygen saturation in 2022-05-13 03:00:00 97 /min [facility] blood by [place] [facility] P[facility] oxim[facility] Body temperature 2022-05-13 00:13:00 36.5 Abi [facility] Body weight 2022-05-13 00:13:00 132.904 kg [facility] BMI 2022-05-13 00:13:00 59.18 kg/m2 [facility] Systolic blood 2022-05-06 12:42:00 128 mm[Hg] Univer [facility]ity of pressure [facility] Diastolic blood 2022-05-06 12:42:00 83 mm[Hg] [facility]ive rs[facility] of pressure [facility] Heart rate 2022-05-06 12:42:00 111 /min [facility] Body temperature 2022-05-06 12:42:00 35.94 Abi [facility] Respiratory rate 2022-05-06 12:42:00 18 /min [facility] Oxygen saturation in 2022-05-06 12:42:00 95 /min [facility] by [place] [facility] Body weight 2022-05-06 10:22:00 132.995 kg [facility] BMI 2022-05-06 10:22:00 59.22 kg/m2 [facility] Body height 2022-05-04 11:00:00 149.9 cm [facility] Systolic blood 2022-02-23 17:14:00 130 mm[Hg] Univer [facility]ity of pressure [facility] Diastolic blood 2022-02-23 17:14:00 83 mm[Hg] [facility]ive rs[facility] of pressure [facility] Heart rate 2022-02-23 17:14:00 100 /min [facility] Body temperature 2022-02-23 17:14:00 36.72 Abi [facility] Respiratory rate 2022-02-23 17:14:00 20 /min [facility] Oxygen saturation in 2022-02-23 17:14:00 96 /min [facility] Arterial blood by [place] [facility] P[facility] oxim[facility] Body height 2022-02-15 10:00:00 149.9 cm [facility] Body weight 2022-02-15 10:00:00 123 kg [facility] BMI 2022-02-15 10:00:00 54.77 kg/m2 [facility] Systolic blood 2022-02-20 12:40:00 107 mm[Hg] [facility]iver [facility]ity of pressure [facility] Diastolic blood 2022-02-20 12:40:00 64 mm[Hg] [facility] rs[facility] of pressure [facility] Heart rate 2022-02-20 12:40:00 99 /min [facility] Body temperature 2022-02-20 12:40:00 36.83 Abi [facility] Respiratory rate 2022-02-20 12:40:00 18 /min [facility] Oxygen saturation in 2022-02-20 12:40:00 95 /min [facility] blood by [place] [facility] P[facility] Body height 2022-02-15 10:00:00 149.9 cm [facility] Body weight 2022-02-15 10:00:00 123 kg [facility] BMI 2022-02-15 10:00:00 54.77 kg/m2 [facility] Heart rate 2022-02-10 23:00:00 91 /min [facility] Oxygen saturation in 2022-02-10 23:00:00 95 /min [facility] Arterial blood by [facility] Pulse oximetry Branch Systolic blood 2022-02-10 22:02:00 134 mm[Hg] Univer sity of pressure [facility] Diastolic blood 2022-02-10 22:02:00 83 mm[Hg] Unive rsity of pressure [facility] Body temperature 2022-02-10 21:00:00 36.83 Abi [facility] Respiratory rate 2022-02-10 21:00:00 28 /min [facility] Body weight 2022-02-10 09:00:00 134.99 kg [facility] BMI 2022-02-10 09:00:00 60.08 kg/m2 [facility] Body height 2022-02-07 22:22:00 149.9 cm [facility] Systolic blood 2022-01-27 03:38:00 126 mm[Hg] Univer [facility]ity of pressure [facility] Diastolic blood 2022-01-27 03:38:00 90 mm[Hg] Unive rsity of pressure [facility] Heart rate 2022-01-27 03:38:00 97 /min [facility] Respiratory rate 2022-01-27 03:38:00 18 /min [facility] Oxygen saturation in 2022-01-27 03:38:00 97 /min [facility] Arterial blood by [facility] Pulse oximetry Branch Body temperature 2022-01-26 22:09:00 36.94 Abi [facility] Body height 2022-01-26 22:09:00 149.9 cm [facility] Body weight 2022-01-26 22:09:00 127.007 kg [facility] BMI 2022-01-26 22:09:00 56.55 kg/m2 [facility] Systolic blood 2022-01-17 11:00:00 143 mm[Hg] Univer sity of pressure [facility] Diastolic blood 2022-01-17 11:00:00 91 mm[Hg] Unive rsity of pressure [facility] Heart rate 2022-01-17 11:00:00 100 /min [facility] Respiratory rate 2022-01-17 11:00:00 16 /min [facility] Oxygen saturation in 2022-01-17 11:00:00 96 /min [facility] blood by [place] [facility] Body temperature 2022-01-17 09:55:00 36.89 Abi [facility] Body height 2022-01-17 09:55:00 149.9 cm [facility] Body weight 2022-01-17 09:55:00 127.007 kg [facility] BMI 2022-01-17 09:55:00 56.55 kg/m2 [facility] Systolic blood 2022-01-13 00:43:00 132 mm[Hg] Univer sity of pressure [facility] Diastolic blood 2022-01-13 00:43:00 88 mm[Hg] Unive rsity of pressure [facility] Heart rate 2022-01-13 00:43:00 107 /min [facility] Body temperature 2022-01-13 00:43:00 36.33 Abi [facility] Respiratory rate 2022-01-13 00:43:00 18 /min [facility] Oxygen saturation in 2022-01-13 00:43:00 95 /min [facility] Arterial blood by [facility] Pulse oximetry [facility] Body height 2022-01-10 11:31:00 149.9 cm [facility] Body weight 2022-01-10 11:31:00 127.007 kg [facility] BMI 2022-01-10 11:31:00 56.55 kg/m2 [facility] Body temperature 2022-01-06 16:10:00 36.22 Abi [facility] Respiratory rate 2022-01-06 16:10:00 16 /min [facility] Oxygen saturation in 2022-01-06 16:10:00 96 /min [facility] blood by [facility] Pulse oxim[facility] Systolic blood 2022-01-06 16:10:00 127 mm[Hg] Univer sity of pressure [facility] Diastolic blood 2022-01-06 16:10:00 84 mm[Hg] Unive rsity of pressure [facility] Heart rate 2022-01-06 16:10:00 98 /min [facility] Body weight 2022-01-06 08:54:00 133.494 kg [facility] BMI 2022-01-06 08:54:00 50.52 kg/m2 [facility] Body height 2022-01-05 03:01:00 162.6 cm [facility] Systolic blood 2021-12-22 17:03:00 132 mm[Hg] Univer sity of pressure [facility] Diastolic blood 2021-12-22 17:03:00 90 mm[Hg] Unive rsity of pressure [facility] Heart rate 2021-12-22 17:03:00 78 /min [facility] Body temperature 2021-12-22 17:03:00 35.83 Abi [facility] Respiratory rate 2021-12-22 17:03:00 14 /min [facility] Oxygen saturation in 2021-12-22 17:03:00 93 /min [facility]ial blood by [place] [facility] Body weight 2021-12-22 09:00:00 140.933 kg [facility] BMI 2021-12-22 09:00:00 62.75 kg/m2 [facility] Body height 2021-12-21 12:47:00 149.9 cm [facility] Systolic blood 2021-12-18 20:40:00 125 mm[Hg] Univer sity of pressure [facility] Diastolic blood 2021-12-18 20:40:00 75 mm[Hg] Unive rsity of pressure [facility] Heart rate 2021-12-18 20:40:00 99 /min [facility] Body temperature 2021-12-18 20:40:00 36.67 Abi [facility] Respiratory rate 2021-12-18 20:40:00 20 /min [facility] Oxygen saturation in 2021-12-18 20:40:00 93 /min [facility] Arterial blood by [facility] P[facility] oxim[facility] Body weight 2021-12-16 22:13:00 137.485 kg [facility] BMI 2021-12-16 22:13:00 61.22 kg/m2 [facility] Body height 2021-12-15 09:10:00 149.9 cm [facility] Systolic blood 2021-11-28 15:49:00 111 mm[Hg] Univer sity of pressure [facility] Diastolic blood 2021-11-28 15:49:00 76 mm[Hg] Unive rsity of pressure [facility] Heart rate 2021-11-28 15:49:00 109 /min [facility] Body temperature 2021-11-28 15:49:00 36.06 Abi [facility] Respiratory rate 2021-11-28 15:49:00 18 /min [facility] Oxygen saturation in 2021-11-28 15:49:00 92 /min [facility] blood by [place] [facility] Body weight 2021-11-27 10:47:00 139.481 kg [facility] BMI 2021-11-27 10:47:00 62.11 kg/m2 [facility] Body height 2021-11-22 06:57:00 149.9 cm [facility] Systolic blood 2021-10-16 06:00:00 144 mm[Hg] Univer sity of pressure [facility] Diastolic blood 2021-10-16 06:00:00 93 mm[Hg] Unive rsity of pressure [facility] Heart rate 2021-10-16 06:00:00 92 /min [facility] Respiratory rate 2021-10-16 06:00:00 22 /min [facility] Oxygen saturation in 2021-10-16 04:00:00 94 /min [facility] by [facility] Body temperature 2021-10-16 03:45:00 37.06 Abi [facility] Body height 2021-10-16 03:45:00 149.9 cm [facility] Body weight 2021-10-16 03:45:00 127.461 kg [facility] BMI 2021-10-16 03:45:00 56.76 kg/m2 [facility] Systolic blood 2021-09-29 03:18:00 113 mm[Hg] Univer sity of pressure [facility] Diastolic blood 2021-09-29 03:18:00 85 mm[Hg] Unive rsity of pressure [facility] Heart rate 2021-09-29 03:18:00 96 /min [facility] Respiratory rate 2021-09-29 03:18:00 18 /min [facility] Oxygen saturation in 2021-09-29 03:18:00 93 /min [facility]terial blood by [facility] Pulse oximetry Branch Body temperature 2021-09-29 01:01:16 [...] 96 /min [facility] blood by [facility] Pulse oximetry [facility] Body weight 2021-08-08 09:48:00 [...] Branch Respiratory rate 2021-08-01 03:50:00 17 /min [facility] ersity of [facility] Oxygen saturation in 2021-08-01 03:50:00 98 /min [facility]terial blood by [facility] Pulse oximetry Branch Body temperature 2021-07-31 20:39:00 36.5 Abi [facility] ersity of [facility] Body weight 2021-07-31 20:39:00 136.079 kg [facility] BMI 2021-07-31 20:39:00 60.59 kg/m2 Universi ty [facility] Systolic blood 2021-07-30 01:46:00 134 mm[Hg] Univer sity of pressure [facility] Diastolic blood 2021-07-30 01:46:00 100 mm[Hg] Unive rsity of [facility] Heart rate 2021-07-30 01:46:00 102 /min [facility] Respiratory rate 2021-07-30 01:46:00 22 /min [facility] ersity of [facility] Oxygen saturation in 2021-07-30 01:46:00 96 /min [facility] blood by [facility] Pulse oximetry Branch Body temperature 2021-07-29 20:52:00 36.67 Abi [facility] ersity of [facility] Body weight 2021-07-29 20:52:00 136.079 kg Universi ty [facility] BMI 2021-07-29 20:52:00 60.59 kg/m2 Universi [facility] height 2021-07-04 11:20:00 59 [in_i] [facility] weight 2021-07-04 11:20:00 350 [lb_av] [facility] temperature 2021-07-04 11:20:00 97.8 [degF] [facility] bmi 2021-07-04 11:20:00 70.68 kg/m2 [facility] oximetry 2021-07-04 11:20:00 94 % [facility] blood pressure 2021-07-04 11:20:00 160 mm[Hg] [facility] blood pressure 2021-07-04 11:20:00 80 mm[Hg] [facility] Systolic blood 2021-06-07 23:30:00 175 mm[Hg] Univer sity of [facility] Diastolic blood 2021-06-07 23:30:00 107 mm[facility]Hg] [facility] 2021-06-07 23:30:00 81 /min [facility] Respiratory rate 2021-06-07 23:30:00 21 /min [facility] Oxygen saturation in 2021-06-07 23:30:00 97 /min [facility] blood by [facility] Pulse oximetry Branch Body weight 2021-06-07 21:55:00 136.079 kg [facility] BMI 2021-06-07 21:55:00 60.59 kg/m2 [facility] Body temperature 2021-06-07 21:55:00 37.44 Abi [facility] 2021-04-11 13:00:00 59 [in_i] [facility] weight 2021-04-11 13:00:00 350 [lb_av] [facility] temperature 2021-04-11 13:00:00 96.8 [degF] [facility] bmi 2021-04-11 13:00:00 70.68 kg/m2 [facility] oximetry 2021-04-11 13:00:00 96 % [facility] blood pressure 2021-04-11 13:00:00 120 mm[Hg] [facility] blood pressure 2021-04-11 13:00:00 77 mm[Hg] [facility] height 2021-01-31 14:20:00 59 [in_i] [facility] weight 2021-01-31 14:20:00 350 [lb_av] [facility] temperature 2021-01-31 14:20:00 95 [degF] [facility] bmi 2021-01-31 14:20:00 70.68 kg/m2 [facility] oximetry 2021-01-31 14:20:00 98 % [facility] blood pressure 2021-01-31 14:20:00 128 mm[Hg] [facility] blood pressure 2021-01-31 14:20:00 82 mm[Hg] [facility] height 2021-01-03 13:40:00 59 [in_i] [facility] weight 2021-01-03 13:40:00 350 [lb_av] [facility] temperature 2021-01-03 13:40:00 97.4 [degF] [facility] bmi 2021-01-03 13:40:00 70.68 kg/m2 [facility] oximetry 2021-01-03 13:40:00 91 % [facility] blood pressure 2021-01-03 13:40:00 132 mm[Hg] [facility] blood pressure 2021-01-03 13:40:00 87 mm[Hg] [facility] Systolic blood 2020-11-21 01:30:00 163 mm[Hg] Univer sity of pressure [facility] Diastolic blood 2020-11-21 01:30:00 106 mm[Hg] Unive rsity of pressure [facility] Heart rate 2020-11-21 01:30:00 97 /min [facility] Respiratory rate 2020-11-21 01:30:00 21 /min [facility] in 2020-11-21 01:30:00 97 /min [facility] Arterial blood by [facility] Pulse oximetry Branch Body temperature 2020-11-20 23:27:00 36.83 Abi [facility] Body height 2020-11-20 23:27:00 149.9 cm Universi [...] 2020-11-21 01:30:00 21 /min [facility] Oxygen saturation in 2020-11-21 01:30:00 97 /min [facility] by [place] [facility] Body temperature 2020-11-20 23:27:00 36.83 Abi [facility] Body height 2020-11-20 23:27:00 149.9 cm [facility] Body weight 2020-11-20 23:27:00 136.079 kg [facility] BMI 2020-11-20 23:27:00 60.59 kg/m2 [facility] Systolic blood 2022-02-19 16:49:00 127 mm[Hg] Univer sity of pressure [facility] Diastolic blood 2022-02-19 16:49:00 86 mm[Hg] Unive rsity of pressure [facility] Heart rate 2022-02-19 16:49:00 101 /min [facility] Body temperature 2022-02-19 16:49:00 36.83 Abi [facility] Respiratory rate 2022-02-19 16:49:00 20 /min [facility] Oxygen saturation in 2022-02-19 16:49:00 95 /min [facility] by [place] [facility] Body height 2022-02-15 10:00:00 149.9 cm [facility] Body weight 2022-02-15 10:00:00 123 kg [facility] BMI 2022-02-15 10:00:00 54.77 kg/m2 [facility] Temperature Oral (F) 2021-10-25 21:12:00 98.0 F [facility] Heart Rate 2021-10-25 21:12:00 [facility] [place] Respitory Rate 2021-10-25 21:12:00 [facility] Systolic (mm Hg) 2021-10-25 21:12:00 [facility] Diastolic (mm Hg) 2021-10-25 21:12:00 [facility] Heart Rate 2021-10-25 17:09:26 [facility] Respitory Rate 2021-10-25 17:09:26 [facility] [place] Temperature Oral (F) 2021-10-25 17:09:08 98.2 F [facility] Systolic (mm Hg) 2021-10-25 17:08:50 [facility] Diastolic (mm Hg) 2021-10-25 17:08:50 [facility] Heart Rate 2021-10-25 17:08:50 [facility] Respitory Rate 2021-10-25 13:07:22 [facility] Temperature Oral (F) 2021-10-25 13:07:04 97.7 F [facility] Systolic (mm Hg) 2021-10-25 13:06:57 [place] [facility] [place] Diastolic (mm Hg) 2021-10-25 13:06:57 [facility] Heart Rate 2021-10-23 10:00:21 [facility] [place] Respitory Rate 2021-10-23 10:00:21 [facility] Temperature Oral (F) 2021-10-23 09:59:28 97.5 F [facility] Systolic (mm Hg) 2021-10-23 09:58:18 [place] [facility] [place] Diastolic (mm Hg) 2021-10-23 09:58:18 [facility] Heart Rate 2021-10-23 09:58:18 [facility] Heart Rate 2021-10-23 04:58:41 [facility] Respitory Rate 2021-10-23 04:58:41 [facility] Temperature Oral (F) 2021-10-23 04:58:34 97.2 F [facility] Systolic (mm Hg) 2021-10-23 04:57:48 [facility] [facility] [place] Diastolic (mm Hg) 2021-10-23 04:57:48 [facility] [place] Respitory Rate 2021-10-23 00:54:28 [facility] Systolic (mm Hg) 2021-10-23 00:54:19 [facility] Diastolic (mm Hg) 2021-10-23 00:54:19 [facility] Temperature Oral (F) 2021-10-23 00:53:24 98.1 F [facility] Height 2021-10-20 23:39:00 149.86 cm [facility] Weight 2021-10-20 23:39:00 [facility] [place] BMI Calculated 2021-10-20 23:39:00 [facility] [place] Systolic (mm Hg) 2021-10-10 14:00:00 [facility] Diastolic (mm Hg) 2021-10-10 14:00:00 [facility] Respitory Rate 2021-10-10 14:00:00 [facility] Respitory Rate 2021-10-10 13:00:00 [facility] [place] Systolic (mm Hg) 2021-10-10 13:00:00 [place] [facility] [place] Diastolic (mm Hg) 2021-10-10 13:00:00 [facility] [place] Respitory Rate 2021-10-10 12:00:00 [facility] Systolic (mm Hg) 2021-10-10 12:00:00 [facility] Diastolic (mm Hg) 2021-10-10 12:00:00 [facility] Respitory Rate 2021-10-09 05:00:00 [facility] [place] Systolic (mm Hg) 2021-10-09 05:00:00 [place] [facility] [place] Diastolic (mm Hg) 2021-10-09 05:00:00 [facility] Respitory Rate 2021-10-09 04:00:00 [facility] [place] Systolic (mm Hg) 2021-10-09 04:00:00 [facility] Diastolic (mm Hg) 2021-10-09 04:00:00 [facility] Respitory Rate 2021-10-09 03:00:00 [facility] [place] Systolic (mm Hg) 2021-10-09 03:00:00 [facility] [place] Diastolic (mm Hg) 2021-10-09 03:00:00 [facility] [place] Heart Rate 2021-10-06 15:55:41 [facility] Temperature Oral (F) 2021-10-06 15:55:32 98.3 F [facility] Heart Rate 2021-10-06 15:54:37 [facility] Heart Rate 2021-10-06 12:20:12 [facility] Temperature Oral (F) 2021-10-06 12:19:51 97.7 F [facility] Temperature Oral (F) 2021-10-06 09:20:54 97.9 F [facility] Height 2021-10-06 06:18:00 149.86 cm [facility] Weight 2021-10-06 06:18:00 [facility] [place] BMI Calculated 2021-10-06 06:18:00 [facility] Respitory Rate 2018-05-22 17:30:00 [facility] [place] Systolic (mm Hg) 2018-05-22 17:30:00 [facility] [place] Diastolic (mm Hg) 2018-05-22 17:30:00 [facility] [place] Temperature Oral (F) 2018-05-22 17:30:00 98.4 F [facility] Temperature Oral (F) 2018-05-22 16:23:00 98.6 F [facility] Systolic (mm Hg) 2018-05-22 16:23:00 [facility] [place] Diastolic (mm Hg) 2018-05-22 16:23:00 [facility] [place] Respitory Rate 2018-05-22 14:00:00 [facility] Systolic (mm Hg) 2018-05-22 14:00:00 [facility] Diastolic (mm Hg) 2018-05-22 14:00:00 [facility] [place] Respitory Rate 2018-05-22 13:30:00 [facility] BMI Calculated 2018-05-22 10:16:00 [facility] [place] Height 2018-05-22 10:16:00 149.86 cm [facility] Weight 2018-05-22 10:16:00 [facility] [place] Heart Rate 2018-05-22 10:16:00 [facility] Temperature Oral (F) 2018-05-22 10:16:00 97.9 F [facility] Temperature Oral (F) 2017-11-19 13:40:00 97.2 F [facility] Systolic (mm Hg) 2017-11-19 13:40:00 [facility] [place] Diastolic (mm Hg) 2017-11-19 13:40:00 [facility] Heart Rate 2017-11-19 13:40:00 [facility] [place] Respitory Rate 2017-11-19 13:40:00 [facility] [place] Heart Rate 2017-11-19 05:24:00 [facility] Systolic (mm Hg) 2017-11-19 05:24:00 [place] [facility] [place] Diastolic (mm Hg) 2017-11-19 05:24:00 [facility] [place] Respitory Rate 2017-11-19 05:24:00 [facility] [place] Temperature Oral (F) 2017-11-19 05:24:00 98.1 F [facility] Respitory Rate 2017-11-19 01:15:00 [facility] Systolic (mm Hg) 2017-11-19 01:15:00 [facility] [facility] [place] Diastolic (mm Hg) 2017-11-19 01:15:00 Mem [facility] [place] Heart Rate 2017-11-19 01:15:00 [facility] [place] Temperature Oral (F) 2017-11-19 01:15:00 98.1 F [facility] [place] Weight 2017-11-18 14:00:00 [facility] Weight 2017-11-17 14:00:00 [facility] [place] Weight 2017-11-15 14:00:00 [facility] BMI Calculated 2017-11-15 05:43:00 [facility] Height 2017-11-15 05:43:00 162.56 cm [facility] Height 2017-11-14 22:41:00 149.86 cm [facility] [place] BMI Calculated 2017-11-14 22:41:00 Mem[facility] Procedures Procedure Date / Time Performing Clinician Source Performed POCT GLUCOSE (AUTOMATED) 2022-05-21 22:58:00 Negar Guardado [facility] POCT GLUCOSE (AUTOMATED) 2022-05-21 18:00:00 Negar Guardado [facility] POCT GLUCOSE (AUTOMATED) 2022-05-21 13:46:00 Negar Guardado [facility] BASIC METABOLIC PANEL 2022-05-21 10:49:00 Cathleen [facility] (NA, K, CL, CO2, GLUCOSE, Medica l Branch BUN, CREATININE, CA) CBC WITH DIFF 2022-05-21 10:49:00 Cathleen Dileep [place] o [facility] LACTIC ACID WHOLE BLOOD 2022-05-21 02:31:00 [facility]A SCREEN BY 2022-05-21 02:31:00 Negar Guardado [facility] PCR, [facility] POCT GLUCOSE (AUTOMATED) 2022-05-21 02:09:00 Negar Guardado [facility] BLOOD CULTURE SCREEN 2022-05-21 00:35:00 Lynette Fonseca [facility] URINALYSIS 2022-05-20 23:26:00 Lynette Fonseca [facility] BLOOD CULTURE SCREEN 2022-05-20 23:15:00 Lynette Fonseca [facility] COMP. METABOLIC PANEL 2022-05-20 23:08:00 Lynette Fonseca [facility] ([id number]) [facility] CBC WITH DIFF 2022-05-20 23:08:00 Lynette Fonseca [facility] LACTIC ACID WHOLE BLOOD 2022-05-20 23:07:00 Lynette Fonseca [facility] CT ABDOMEN PELVIS W 2022-05-13 02:06:00 Lamine Serna [facility] CONTRAST [facility] Branch LIPASE 2022-05-13 00:59:00 Lamine Serna [facility] COMP. METABOLIC PANEL 2022-05-13 00:59:00 Lamine Serna [facility] ([id number]) [facility] CBC WITH DIFF 2022-05-13 00:59:00 Lamine Serna [facility] URINALYSIS 2022-05-13 00:49:00 Lamine Serna [facility] POCT GLUCOSE (AUTOMATED) 2022-05-06 13:14:00 Kaylee Argueta [facility] POCT GLUCOSE (AUTOMATED) 2022-05-06 01:14:00 [facility] POCT GLUCOSE (AUTOMATED) 2022-05-05 21:19:00 Kaylee Argueta [facility] BASIC METABOLIC PANEL 2022-05-05 11:23:00 Ellie [facility] (NA, K, CL, CO2, GLUCOSE, Medica l Branch BUN, CREATININE, CA) CBC WITH DIFF 2022-05-05 11:16:00 Ellie [facility] o [facility] MRSA / MSSA SCREEN BY 2022-05-05 01:13:00 Negar Guardado [facility] PCR, [facility] POCT GLUCOSE (AUTOMATED) 2022-05-05 01:11:00 [facility] POCT GLUCOSE (AUTOMATED) 2022-05-04 21:32:[address] [facility] URINE CULTURE 2022-05-04 16:17:00 Ellie [facility] POCT GLUCOSE (AUTOMATED) 2022-05-04 16:08:[address] [facility] POCT GLUCOSE (AUTOMATED) 2022-05-04 12:43:[address] [facility] ASPIRATE OR ABSCESS 2022-05-04 07:35:00 Opal [facility] C[facility]INAL[facility]IS 2022-05-04 07:32:00 Op[address] [facility] CT ABDOMEN PELVIS W 2022-05-04 07:25:15 Opal [facility] CONTRAST [facility] BLOOD CULTURE SCREEN 2022-05-04 06:01:00 Diomedes Joseph [facility] LIPASE 2022-05-04 06:01:00 Opal [facility] COMP. METABOLIC PANEL 2022-05-04 06:01:00 Diomedes Joseph [facility] ([id number]) Medical Branch CBC WITH DIFF 2022-05-04 06:01:00 Diomedes Joseph [facility] POCT GLUCOSE (AUTOMATED) 2022-02-23 18:34:00 [facility] POCT GLUCOSE (AUTOMATED) 2022-02-23 14:37:00 [facility] BASIC METABOLIC PANEL 2022-02-23 13:22:00 [facility] (NA, K, CL, CO2, GLUCOSE, Medica l Branch BUN, CREATININE, CA) CBC WITH DIFF 2022-02-23 13:22:00 Kingsley [facility] POCT GLUCOSE (AUTOMATED) 2022-02-23 10:56:00 [facility] POCT GLUCOSE (AUTOMATED) 2022-02-23 05:46:00 [facility] POCT GLUCOSE (AUTOMATED) 2022-02-23 02:17:00 [facility] POCT GLUCOSE (AUTOMATED) 2022-02-22 23:13:00 [facility] POCT GLUCOSE (AUTOMATED) 2022-02-22 18:22:00 [facility] POCT GLUCOSE (AUTOMATED) 2022-02-22 14:56:00 [facility] BASIC METABOLIC PANEL 2022-02-22 10:03:00 David Wynn [facility] (NA, K, CL, CO2, GLUCOSE, Medica l Branch BUN, CREATININE, CA) CBC WITH DIFF 2022-02-22 10:03:00 Lorin Wynnnathan [facility] POCT GLUCOSE (AUTOMATED) 2022-02-22 02:18:00 [facility] POCT GLUCOSE (AUTOMATED) 2022-02-21 22:26:00 [facility] POCT GLUCOSE (AUTOMATED) 2022-02-21 18:57:00 Ricardo Conroy [facility] POCT GLUCOSE (AUTOMATED) 2022-02-21 18:57:00 [facility] DUPLEX VENOUS ARMS 2022-02-21 17:28:[address] [facility] BILATERAL - BY VASCULAR [facility] US DUPLEX VENOUS ARMS 2022-02-21 17:28:[address] [facility] BILATERAL - BY VASCULAR [facility] POCT GLUCOSE (AUTOMATED) 2022-02-21 15:20:00 [facility]) 2022-02-21 15:20:00 [facility] MAG[facility]UM 2022-02-21 10:19:00 [facility] BASIC METABOLIC PANEL 2022-02-21 10:19:00 [facility]yo [facility] (NA, K, CL, CO2, GLUCOSE, [place] Medica l Branch BUN, CREATININE, CA) CBC WITH DIFF 2022-02-21 10:19:00 [facility] MAGNESIUM 2022-02-21 10:19:00 [facility] BASIC METABOLIC PANEL 2022-02-21 10:19:00 [facility]yo [facility] (NA, K, CL, CO2, GLUCOSE, [place] [facility] BUN, CREATININE, CA) CBC WITH DIFF 2022-02-21 10:19:00 [facility] POCT GLUCOSE (AUTOMATED) 2022-02-21 02:44:00 [facility] PO[facility]SE (AUTOMATED) 2022-02-21 02:44:00 [facility] PO[facility]SE (AUTOMATED) 2022-02-20 22:02:00 Ricardo Conroy niversity [facility] POCT GLUCOSE (AUTOMATED) 2022-02-20 22:02:00 [facility] FUNGUS ([facility]OUTINE) CULTURE 2022-02-20 17:03:00 Chalino [facility] TISSUE 2022-02-20 17:03:00 Sarah Beth Paul [facility] CULTURE(AEROBIC/ANAEROBIC A Medica l Branch ) FUNGUS (ROUTINE) CULTURE 2022-02-20 17:03:00 Chalino [facility] TISSUE 2022-02-20 17:03:00 Sarah Beth Paul [facility] CULTURE(AEROBIC/ANAEROBIC A Medica l Branch ) FUNGUS (ROUTINE) CULTURE 2022-02-20 17:00:00 Chalino [facility] TISSUE 2022-02-20 17:00:00 Sarah Beth Paul [facility] CULTURE(AEROBIC/ANAEROBIC A Medica l Branch ) FUNGUS (ROUTINE) CULTURE 2022-02-20 17:00:00 Chalino [facility] TISSUE 2022-02-20 17:00:00 Sarah Beth Paul [facility] CULTURE(AEROBIC/ANAEROBIC A Medica l Branch ) FUNGUS (ROUTINE) CULTURE 2022-02-20 16:59:00 Chalino [facility] TISSUE 2022-02-20 16:59:00 Sarah Beth Paul [facility] CULTURE(AEROBIC/ANAEROBIC A Medica l Branch ) FUNGUS (ROUTINE) CULTURE 2022-02-20 16:59:00 Chalino [facility] TISSUE 2022-02-20 16:59:00 Sarah Beth Paul [facility] CULTURE(AEROBIC/ANAEROBIC A Medica l Branch ) FOOT DEBRIDEMENT 2022-02-20 16:11:00 Sarah Beth [facility] [place] FOOT DEBRIDEMENT 2022-02-20 16:11:00 Sarah Beth Paul [facility] COVID-19 (ID NOW RAPID 2022-02-20 14:36:00 David Wynn [facility] TESTING) Medical Branch LAB ONLY COVID 2022-02-20 14:36:00 David Wynn [facility] INTERPRETATION [facility] Branch COVID-19 (ID NOW RAPID 2022-02-20 14:36:00 David Wynn [facility] TESTING) Medical Branch LAB ONLY COVID 2022-02-20 14:36:00 David Wynn [facility] POCT GLUCOSE (AUTOMATED) 2022-02-20 14:07:00 Aurora Martinez [facility] POCT GLUCOSE (AUTOMATED) 2022-02-20 14:07:00 Aurora Martinez [facility] HB ECG ROUTINE & RHYTHM 2022-02-20 13:27:17 Renetta [facility] CBC WITH DIFF 2022-02-20 10:55:00 [facility] CBC WITH DIFF 2022-02-20 10:55:00 [facility] MAGNESIUM 2022-02-20 10:40:00 [facility] BASIC METABOLIC PANEL 2022-02-20 10:40:00 Negar Rollins [facility] (NA, K, CL, CO2, GLUCOSE, [place] Medica [facility] Branch BUN, CREATININE, CA) COVID-19 (ID NOW RAPID 2022-02-20 10:40:00 [facility] TESTING) Medical Branch LAB ONLY COVID 2022-02-20 10:40:00 Rafal [facility] Medical Branch MAGNESIUM 2022-02-20 10:40:00 [facility] BASIC METABOLIC PANEL 2022-02-20 10:40:00 Negar Rollins [facility] (NA, K, CL, CO2, GLUCOSE, [place] [facility] BUN, CREATININE, CA) COVID-19 (ID NOW RAPID 2022-02-20 10:40:00 [facility] TESTING) Medical Branch LAB ONLY COVID 2022-02-20 10:40:00 [place] [facility] POCT GLUCOSE (AUTOMATED) 2022-02-20 02:29:00 Aurora Martinez [facility] POCT GLUCOSE (AUTOMATED) 2022-02-20 02:29:00 Aurora [facility] POCT GLUCOSE (AUTOMATED) 2022-02-19 23:39:00 Aurora Martinez [facility] POCT GLUCOSE (AUTOMATED) 2022-02-19 23:39:00 Aurora Martinez [facility] POCT GLUCOSE (AUTOMATED) 2022-02-19 17:10:00 Aurora Martinez [facility] POCT GLUCOSE (AUTOMATED) 2022-02-19 17:10:00 Aurora Martinez [facility] POCT GLUCOSE (AUTOMATED) 2022-02-19 17:10:00 Aurora Martinez [facility] POCT GLUCOSE (AUTOMATED) 2022-02-19 15:54:00 Aurora Martinez [facility] POCT GLUCOSE (AUTOMATED) 2022-02-19 15:54:00 Aurora Martinez [facility] POCT GLUCOSE (AUTOMATED) 2022-02-19 15:54:00 Aurora Martinez Uni versity [facility] SEDIMENTATION RATE 2022-02-19 08:36:00 Vicky [facility] BASIC METABOLIC PANEL 2022-02-19 08:36:00 [facility] (NA, K, CL, CO2, GLUCOSE, Medica l Branch BUN, CREATININE, CA) CBC WITH DIFF 2022-02-19 08:36:00 [facility] MAGNESIUM 2022-02-19 08:36:00 [facility] MAGNESIUM 2022-02-19 08:36:00 [facility] BASIC METABOLIC PANEL 2022-02-19 08:36:00 Jose A [facility] (NA, K, CL, CO2, GLUCOSE, Medica l Branch BUN, CREATININE, CA) SEDIMENTATION RATE 2022-02-19 08:36:00 Vicky [facility] CBC WITH DIFF 2022-02-19 08:36:00 Jose A [facility] MAGNESIUM 2022-02-19 08:36:00 [facility] A [facility] BASIC METABOLIC PANEL 2022-02-19 08:36:00 Jose A [facility] (NA, K, CL, CO2, GLUCOSE, Medica l Branch BUN, CREATININE, CA) SEDIMENTATION RATE 2022-02-19 08:36:00 Indira Perry [facility] CBC WITH DIFF 2022-02-19 08:36:00 [facility] POCT GLUCOSE (AUTOMATED) 2022-02-19 00:57:00 Vic Mcdonald [facility] POCT GLUCOSE (AUTOMATED) 2022-02-19 00:57:00 Vic Mcdonald B [facility] POCT GLUCOSE (AUTOMATED) 2022-02-19 00:57:00 Vic Mcdonald [facility] POCT GLUCOSE (AUTOMATED) 2022-02-18 21:26:00 Vic Mcdonald B [facility] POCT GLUCOSE (AUTOMATED) 2022-02-18 21:26:00 Vic Mcdonald [facility] POCT GLUCOSE (AUTOMATED) 2022-02-18 21:26:00 Vic Mcdonald B [facility] POCT GLUCOSE (AUTOMATED) 2022-02-18 16:47:00 Vic Mcdonald [facility] POCT GLUCOSE (AUTOMATED) 2022-02-18 16:47:00 Vic Mcdonald B [facility] POCT GLUCOSE (AUTOMATED) 2022-02-18 16:47:00 Vic Mcdonald [facility] BASIC METABOLIC PANEL 2022-02-18 14:21:00 Nai Naranjo [facility] (NA, K, CL, CO2, GLUCOSE, Medica l Branch BUN, CREATININE, CA) C-REACTIVE PROTEIN 2022-02-18 14:21:00 Indira Perry [facility] C-REACTIVE PROTEIN 2022-02-18 14:21:00 Vicky [facility] BASIC METABOLIC PANEL 2022-02-18 14:21:00 Nai Naranjo [facility] (NA, K, CL, CO2, GLUCOSE, Medica l Branch BUN, CREATININE, CA) C-REACTIVE PROTEIN 2022-02-18 14:21:00 [facility] BASIC METABOLIC PANEL 2022-02-18 14:21:00 Nai Naranjo [facility] (NA, K, CL, CO2, GLUCOSE, Medica l Branch BUN, CREATININE, CA) POCT GLUCOSE (AUTOMATED) 2022-02-18 12:34:00 Vic Mcdonald B [facility] POCT GLUCOSE (AUTOMATED) 2022-02-18 12:34:00 Fiorella Mcdonaldy B [facility] [place] [facility] POCT GLUCOSE (AUTOMATED) 2022-02-18 12:34:00 Vic Mcdonald B [facility] [place] [facility] POCT GLUCOSE (AUTOMATED) 2022-02-18 01:28:00 Fiorella Mcdonaldy B [facility] [place] [facility] POCT GLUCOSE (AUTOMATED) 2022-02-18 01:28:00 HarryFiorellay B [facility] [place] [facility] POCT GLUCOSE (AUTOMATED) 2022-02-18 01:28:00 Fiorella Mcdonaldy B [facility] [place] [facility] POCT GLUCOSE (AUTOMATED) 2022-02-17 21:13:00 AbileneFiorellay B [facility] [place] [facility] POCT GLUCOSE (AUTOMATED) 2022-02-17 21:13:00 Harry Vic B [facility] [place] [facility] POCT GLUCOSE (AUTOMATED) 2022-02-17 21:13:00 Harry Vic B [facility] [place] [facility] POCT GLUCOSE (AUTOMATED) 2022-02-17 16:39:00 Harry Vic B [facility] [place] [facility] POCT GLUCOSE (AUTOMATED) 2022-02-17 16:39:00 HarryFiorellay B [facility] [place] [facility] POCT GLUCOSE (AUTOMATED) 2022-02-17 16:39:00 Vic Mcdonald [facility] POCT GLUCOSE (AUTOMATED) 2022-02-17 13:11:00 Vic Mcdonald [facility] POCT GLUCOSE (AUTOMATED) 2022-02-17 13:11:00 Vic Mcdonald [facility] POCT GLUCOSE (AUTOMATED) 2022-02-17 13:11:00 Vic Mcdonald [facility] MAGNESIUM 2022-02-17 10:28:00 Corbin [facility] BASIC METABOLIC PANEL 2022-02-17 10:28:00 [facility] (NA, K, CL, CO2, GLUCOSE, Medica l Branch BUN, CREATININE, CA) MAGNESIUM 2022-02-17 10:28:00 Corbin [facility] BASIC METABOLIC PANEL 2022-02-17 10:28:00 [facility] (NA, K, CL, CO2, GLUCOSE, Medica l Branch BUN, CREATININE, CA) MAGNESIUM 2022-02-17 10:28:00 [facility] BASIC METABOLIC PANEL 2022-02-17 10:28:00 [facility] (NA, K, CL, CO2, GLUCOSE, Medica l Branch BUN, CREATININE, CA) POCT GLUCOSE (AUTOMATED) 2022-02-17 10:01:00 Vic Mcdonald [facility] POCT GLUCOSE (AUTOMATED) 2022-02-17 10:01:00 Vic Mcdonald [facility] POCT GLUCOSE (AUTOMATED) 2022-02-17 10:01:00 Vic Mcdonald [facility] POCT GLUCOSE (AUTOMATED) 2022-02-17 06:32:00 Vic Mcdonald [facility] POCT GLUCOSE (AUTOMATED) 2022-02-17 06:32:00 iVc Mcdonald [facility] POCT GLUCOSE (AUTOMATED) 2022-02-17 06:32:00 Vic Mcdonald [facility] BASIC METABOLIC PANEL 2022-02-17 02:01:00 Lacey Alaniz [facility] (NA, K, CL, CO2, GLUCOSE, Medica l Branch BUN, CREATININE, CA) BASIC METABOLIC PANEL 2022-02-17 02:01:00 [facility] (NA, K, CL, CO2, GLUCOSE, Medica l Branch BUN, CREATININE, CA) BASIC METABOLIC PANEL 2022-02-17 02:01:00 Corbin rob [facility] (NA, K, CL, CO2, GLUCOSE, Medica l Branch BUN, CREATININE, CA) POCT GLUCOSE (AUTOMATED) 2022-02-17 01:53:00 Vic Mcdonald [facility] POCT GLUCOSE (AUTOMATED) 2022-02-17 01:53:00 Vic Mcdonald [facility] POCT GLUCOSE (AUTOMATED) 2022-02-17 01:53:00 Vic Mcdonald [facility] POCT GLUCOSE (AUTOMATED) 2022-02-16 23:02:00 Vic Mcdonald [facility] POCT GLUCOSE (AUTOMATED) 2022-02-16 23:02:00 Vic Mcdonald [facility] [place] [facility] POCT GLUCOSE (AUTOMATED) 2022-02-16 23:02:00 Vic Mcdonald [facility] [place] [facility] XR FOOT 3+ VW BILATERAL 2022-02-16 21:35:00 Beverly Sarah Beth [facility] [place] XR FOOT 3+ VW BILATERAL 2022-02-16 21:35:00 Beverly [facility] Medical Branch XR FOOT 3+ VW BILATERAL 2022-02-16 21:35:00 Beverly [facility] POCT GLUCOSE (AUTOMATED) 2022-02-16 20:45:00 Vic Mcdonald [facility] POCT GLUCOSE (AUTOMATED) 2022-02-16 20:45:00 Vic Mcdonald [facility] POCT GLUCOSE (AUTOMATED) 2022-02-16 20:45:00 Vic Mcdonald [facility] [place] [facility] POCT GLUCOSE (AUTOMATED) 2022-02-16 16:41:00 Vic Mcdonald [facility] POCT GLUCOSE (AUTOMATED) 2022-02-16 16:41:00 Vic Mcdonald [facility] POCT GLUCOSE (AUTOMATED) 2022-02-16 16:41:00 Vic Mcdonald [facility] BASIC METABOLIC PANEL 2022-02-16 15:35:00 Vic Mcdonald [facility] [place] (NA, K, CL, CO2, GLUCOSE, Medica l Branch BUN, CREATININE, CA) BASIC METABOLIC PANEL 2022-02-16 15:35:00 [facility] (NA, K, CL, CO2, GLUCOSE, Medica l Branch BUN, CREATININE, CA) BASIC METABOLIC PANEL 2022-02-16 15:35:00 Vic Mcdonald Unive rsity [facility] (NA, K, CL, CO2, GLUCOSE, Medica l Branch BUN, CREATININE, CA) BETA HYDROXY-BUTYRATE 2022-02-16 15:34:00 Kiran Rodríguez [facility] BETA HYDROXY-BUTYRATE 2022-02-16 15:34:00 Kiran Rodríguez [facility] BETA HYDROXY-BUTYRATE 2022-02-16 15:34:00 Kiran Rodríguez [facility] POCT GLUCOSE (AUTOMATED) 2022-02-16 14:20:00 Vic Mcdonald [facility] POCT GLUCOSE (AUTOMATED) 2022-02-16 14:20:00 Vic Mcdonald [facility] POCT GLUCOSE (AUTOMATED) 2022-02-16 14:20:00 Vic Mcdonald [facility] POCT GLUCOSE (AUTOMATED) 2022-02-16 12:52:00 Vic Mcdonald [facility] POCT GLUCOSE (AUTOMATED) 2022-02-16 12:52:00 Vic Mcdonald Un iversity [facility] POCT GLUCOSE (AUTOMATED) 2022-02-16 12:52:00 Vic Mcdonald [facility] POCT GLUCOSE (AUTOMATED) 2022-02-16 09:04:00 Vic Mcdonald [facility] POCT GLUCOSE (AUTOMATED) 2022-02-16 09:04:00 Vic Mcdonald [facility] POCT GLUCOSE (AUTOMATED) 2022-02-16 09:04:00 Vic Mcdonald Un iversity [facility] BASIC METABOLIC PANEL 2022-02-16 06:13:00 Myrna Chen [facility] (NA, K, CL, CO2, GLUCOSE, Medica l Branch BUN, CREATININE, CA) GLUTAMIC ACID 2022-02-16 06:13:00 Myrna Chen [facility] DECARBOXYLASE [facility] CBC WITHOUT DIFF 2022-02-16 06:13:00 [facility]-02-16 06:13:00 [facility] 2022-02-16 06:13:00 April [facility] BASIC METABOLIC PANEL 2022-02-16 06:13:00 [facility] ([facility], K, CL, CO2, GLUCOSE, Medica l Branch BUN, CREATININE, CA) CBC WITHOUT DIFF 2022-02-16 06:13:00 [facility] 2022-02-16 06:13:00 [facility] MAGNESIUM 2022-02-16 06:13:00 April [facility] BASIC METABOLIC PANEL 2022-02-16 06:13:00 [facility] ([facility], K, CL, CO2, GLUCOSE, Medica l Branch BUN, CREATININE, CA) CBC WITHOUT DIFF 2022-02-16 06:13:00 April [facility] GLUTAMIC ACID 2022-02-16 06:13:00 Myrna Chen [place] DECARBOXYLASE AB [facility] POCT GLUCOSE (AUTOMATED) 2022-02-16 05:45:00 Vic Mcdonald [facility] POCT GLUCOSE (AUTOMATED) 2022-02-16 05:45:00 Vic Mcdonald [facility] POCT GLUCOSE (AUTOMATED) 2022-02-16 05:45:00 Vic Mcdonald [facility] POCT GLUCOSE (AUTOMATED) 2022-02-16 01:26:00 Vic Mcdonald [facility] POCT GLUCOSE (AUTOMATED) 2022-02-16 01:26:00 Vic Mcdonald [facility] POCT GLUCOSE (AUTOMATED) 2022-02-16 01:26:00 Vic Mcdonald [facility] POCT GLUCOSE (AUTOMATED) 2022-02-15 23:42:00 Vic Mcdonald [facility] POCT GLUCOSE (AUTOMATED) 2022-02-15 23:42:00 Vic Mcdonald [facility] POCT GLUCOSE (AUTOMATED) 2022-02-15 23:42:00 Vic Mcdonald [facility] BASIC METABOLIC PANEL 2022-02-15 22:51:00 Vic Mcdonald [facility] [place] (NA, K, CL, CO2, GLUCOSE, Medica l Branch BUN, CREATININE, CA) BASIC METABOLIC PANEL 2022-02-15 22:51:00 Vic Mcdonald [facility] [place] (NA, K, CL, CO2, GLUCOSE, Medica l Branch BUN, CREATININE, CA) BASIC METABOLIC PANEL 2022-02-15 22:51:00 Vic Mcdonald [facility] [place] (NA, K, CL, CO2, GLUCOSE, Medica l Branch BUN, CREATININE, CA) POCT GLUCOSE (AUTOMATED) 2022-02-15 22:37:00 Vic Mcdonald [facility] POCT GLUCOSE (AUTOMATED) 2022-02-15 22:37:00 Vic Mcdonald [facility] [place] [facility] POCT GLUCOSE (AUTOMATED) 2022-02-15 22:37:00 Vic Mcdonald [facility] [place] [facility] POCT GLUCOSE (AUTOMATED) 2022-02-15 21:30:00 Vic Mcdonald [facility] [place] [facility] POCT GLUCOSE (AUTOMATED) 2022-02-15 21:30:00 Vic Mcdonald [facility] [place] [facility] POCT GLUCOSE (AUTOMATED) 2022-02-15 21:30:00 Vic Mcdonald [facility] POCT GLUCOSE (AUTOMATED) 2022-02-15 20:05:00 Vic Mcdonald [facility] POCT GLUCOSE (AUTOMATED) 2022-02-15 20:05:00 Vic Mcdonald [facility] POCT GLUCOSE (AUTOMATED) 2022-02-15 20:05:00 Vic Mcdonald [facility] HB ECG ROUTINE & RHYTHM 2022-02-15 19:59:13 Lacey Alaniz Jay [facility] HB ECG ROUTINE & RHYTHM 2022-02-15 19:59:13 Corbin Ahrob Jay [facility] HB ECG ROUTINE & RHYTHM 2022-02-15 19:59:13 Lacey Alaniz [facility] POCT GLUCOSE (AUTOMATED) 2022-02-15 19:06:00 Vic Mcdonald [facility] POCT GLUCOSE (AUTOMATED) 2022-02-15 19:06:00 Vic Mcdonald Un [facility] POCT GLUCOSE (AUTOMATED) 2022-02-15 19:06:00 Vic Mcdonald [facility] BLOOD CULTURE SCREEN 2022-02-15 18:49:00 Nai Naranjo [facility] BLOOD CULTURE SCREEN 2022-02-15 18:49:00 Nai Naranjo [facility] BLOOD CULTURE SCREEN 2022-02-15 18:49:00 Naranjo, Nai [facility] BLOOD CULTURE SCREEN 2022-02-15 18:48:00 Nai Naranjo [facility] BLOOD CULTURE SCREEN 2022-02-15 18:48:00 Nai Naranjo [facility] BLOOD CULTURE SCREEN 2022-02-15 18:48:00 Naranjo, Anni [facility] XR CHEST 1 VW 2022-02-15 18:34:00 Butt, [facility] XR CHEST 1 VW 2022-02-15 18:34:00 Butt, [facility] XR CHEST 1 VW 2022-02-15 18:34:00 Butt, [facility] BASIC METABOLIC PANEL 2022-02-15 17:49:00 [facility] (NA, K, CL, CO2, GLUCOSE, Medica l Branch BUN, CREATININE, CA) TROPONIN I 2022-02-15 17:49:00 [facility] TROPONIN I 2022-02-15 17:49:00 [facility] BASIC METABOLIC PANEL 2022-02-15 17:49:00 Vic Mcdonald [facility] (NA, K, CL, CO2, GLUCOSE, Medica l Branch BUN, CREATININE, CA) TROPONIN I 2022-02-15 17:49:00 [facility] BASIC METABOLIC PANEL 2022-02-15 17:49:00 Vic [facility]cdonald [facility] (NA, K, CL, CO2, GLUCOSE, Medica l Branch BUN, CREATININE, CA) POCT GLUCOSE (AUTOMATED) 2022-02-15 17:27:00 Vic Mcdonald B Un iversity [facility] POCT GLUCOSE (AUTOMATED) 2022-02-15 17:27:00 Vic Mcdonald B Un iversity [facility] POCT GLUCOSE (AUTOMATED) 2022-02-15 17:27:00 [facility] (AUTOMATED) 2022-02-15 15:53:00 Vic Mcdonald [facility] POCT GLUCOSE (AUTOMATED) 2022-02-15 15:53:00 Vic Mcdonald [facility] POCT GLUCOSE (AUTOMATED) 2022-02-15 15:53:00 Vic Mcdonald [facility] BASIC METABOLIC PANEL 2022-02-15 15:32:00 Vic Mcdonald [facility] [place] (NA, K, CL, CO2, GLUCOSE, Medica l Branch BUN, CREATININE, CA) BASIC METABOLIC PANEL 2022-02-15 15:32:00 Vic Mcdonald [facility] [place] (NA, K, CL, CO2, GLUCOSE, Medica l Branch BUN, CREATININE, CA) BASIC METABOLIC PANEL 2022-02-15 15:32:00 Vic Mcdonald [facility] [place] (NA, K, CL, CO2, GLUCOSE, Medica l Branch BUN, CREATININE, CA) POCT GLUCOSE (AUTOMATED) 2022-02-15 14:56:00 Vic Mcdonald [facility] POCT GLUCOSE (AUTOMATED) 2022-02-15 14:56:00 Vic Mcdonald [facility] POCT GLUCOSE (AUTOMATED) 2022-02-15 14:56:00 Vic Mcdonald [facility] POCT GLUCOSE (AUTOMATED) 2022-02-15 13:48:00 Vic Mcdonald [facility] POCT GLUCOSE (AUTOMATED) 2022-02-15 13:48:00 Vic Mcdonald [facility] POCT GLUCOSE (AUTOMATED) 2022-02-15 13:48:00 Vic Mcdonald [facility] POCT GLUCOSE (AUTOMATED) 2022-02-15 10:42:00 Vic Mcdonald [facility] POCT GLUCOSE (AUTOMATED) 2022-02-15 10:42:00 Vic Mcdonald [facility] POCT GLUCOSE (AUTOMATED) 2022-02-15 10:42:00 [facility] BASIC METABOLIC PANEL 2022-02-15 10:14:00 [facility] (NA, K, CL, CO2, GLUCOSE, Medica l Branch BUN, CREATININE, CA) MAGNESIUM 2022-02-15 10:14:00 [facility] 20[facility]-02-15 10:14:00 [facility] BASIC METABOLIC PANEL 2022-02-15 10:14:00 [facility] (NA, K, CL, CO2, GLUCOSE, Medica l Branch BUN, CREATININE, CA) MAGNESIUM 2022-02-15 10:14:00 [facility] BASIC METABOLIC PANEL 2022-02-15 10:14:00 [facility] (NA, K, CL, CO2, GLUCOSE, Medica l Branch BUN, CREATININE, CA) POCT GLUCOSE (AUTOMATED) 2022-02-15 09:30:00 [facility] ([facility]OMATED) 2022-02-15 09:30:00 [facility] PO[facility]SE (AUTOMATED) 2022-02-15 09:30:00 [facility] POCT GLUCOSE (AUTOMATED) 2022-02-15 07:11:00 [facility] POCT GLUCOSE (AUTOMATED) 2022-02-15 07:11:00 [facility] POCT GLUCOSE (AUTOMATED) 2022-02-15 07:11:00 [facility] OSMOLALITY, SERUM OR 2022-02-15 07:07:00 Vic Mcdonald [facility] PLASMA [facility] BETA HYDROXY-BUTYRATE 2022-02-15 07:07:00 Vic [facility]cdonald [facility] OSMOLALITY, SERUM OR 2022-02-15 07:07:00 Vic Mcdonald Univer [facility] BETA HYDROXY-BUTYRATE 2022-02-15 07:07:00 Vic Mcdonald [facility] OSMOLALITY, SERUM OR 2022-02-15 07:07:00 [facility] 2022-02-15 07:07:00 Vic [facility]cdonald [facility] BASIC METABOLIC PANEL 2022-02-15 07:06:00 Vic Mcdonald [facility] (NA, K, CL, CO2, GLUCOSE, Medica l Branch BUN, CREATININE, CA) BASIC METABOLIC PANEL 2022-02-15 07:06:00 Vic Mcdonald [facility] (NA, K, CL, CO2, GLUCOSE, Medica l Branch BUN, CREATININE, CA) BASIC METABOLIC PANEL 2022-02-15 07:06:00 Vic Mcdonald [facility] (NA, K, CL, CO2, GLUCOSE, Medica l Branch BUN, CREATININE, CA) CT ABDOMEN PELVIS W 2022-02-15 05:28:46 Vic Mcdonald [facility] CONTRAST [facility] CT ABDOMEN PELVIS W 2022-02-15 05:28:46 Vic Mcdonald Univers ity [facility] CONTRAST [facility] CT ABDOMEN PELVIS W 2022-02-15 05:28:46 Vic Mcdonald Univers [facility] CONTRAST [facility] POCT GLUCOSE(AGE >30DAYS) 2022-02-15 05:11:00 [facility](AGE >30DAYS) 2022-02-15 05:11:00 [facility] PO[facility] GLU[facility]SE(AGE >30DAYS) 2022-02-15 05:11:00 i[facility]c [facility]cdonald [facility] PO[facility]SE (AUTOMATED) 2022-02-15 05:08:00 Vic Mcdonald Un iversity [facility] POCT GLUCOSE (AUTOMATED) 2022-02-15 05:08:00 [facility] (AUTOMATED) 2022-02-15 05:08:00 [facility] BLOOD CULTURE SCREEN 2022-02-15 04:31:00 Vic Mcdonald [facility] BLOOD CULTURE WORKUP 2022-02-15 04:31:00 Vic Mcdonald [facility] GRAM POSITIVE BLOOD 2022-02-15 04:31:00 Vic Mcdonald [facility] PATHOGENS [facility] PROBE-AEROBIC BLOOD CULTURE SCREEN 2022-02-15 04:31:00 Vic Mcdonald [facility] BLOOD CULTURE WORKUP 2022-02-15 04:31:00 Vic Mcdonald [facility] GRAM POSITIVE BLOOD 2022-02-15 04:31:00 Vic Mcdonald [facility] PATHOGENS [facility] PROBE-AEROBIC BLOOD CULTURE SCREEN 2022-02-15 04:31:00 Vic Mcdonald [facility] BLOOD CULTURE WORKUP 2022-02-15 04:31:00 Vic Mcdonald [facility] GRAM POSITIVE BLOOD 2022-02-15 04:31:00 Vic Mcdonald [facility] PROBE-AEROBIC URINALYSIS 2022-02-15 04:21:00 Vic Mcdonald [facility] URINE CULTURE 2022-02-15 04:21:00 Vic Mcdonald [facility] URINALYSIS 2022-02-15 04:21:00 Vic Mcdonald [facility] URINE CULTURE 2022-02-15 04:21:00 Vic Mcdonald [facility] URINALYSIS 2022-02-15 04:21:00 Vic Mcdonald [facility] URINE CULTURE 2022-02-15 04:21:00 Vic Mcdonald [facility] COVID-19 (ID NOW RAPID 2022-02-15 04:20:00 Vic Mcdonald [facility] TESTING) Medical Branch LAB ONLY COVID 2022-02-15 04:20:00 Vic Mcdonald [facility] COVID-19 (ID NOW RAPID 2022-02-15 04:20:00 Harry Vic [facility] TESTING) Medical Branch LAB ONLY COVID 2022-02-15 04:20:00 Vic Mcdonald [facility] COVID-19 (ID NOW RAPID 2022-02-15 04:20:00 Harry Vic [facility] TESTING) Medical Branch LAB ONLY COVID 2022-02-15 04:20:00 Vic Mcdonald [facility] CBC WITH DIFF 2022-02-15 04:18:00 Vic Mcdonald [facility] PROTHROMBIN TIME / INR 2022-02-15 04:18:00 Harry Vic [facility] BASIC METABOLIC PANEL 2022-02-15 04:18:00 Vic Mcdonald [facility] (NA, K, CL, CO2, GLUCOSE, Medica l Branch BUN, CREATININE, CA) HEPATIC FUNCTION PANEL 2022-02-15 04:18:00 Harry Vic [facility] ([id number]) (ALB,T.PRO,BILI [facility] Branch T,BU/BC,ALT,AST,ALK PHOS) LIPASE 2022-02-15 04:18:00 Vic Mcdonald [facility] ACUTE CARE VENOUS BLOOD 2022-02-15 04:18:00 Vic Mcdonald [facility] GAS [facility] LACTIC ACID WHOLE BLOOD 2022-02-15 04:18:00 Vic Mcdonald [facility] MAGNESIUM 2022-02-15 04:18:00 Vic Mcdonald [facility] PHOSPHORUS 2022-02-15 04:18:00 Vic Mcdonald [facility] GLYCOSYLATED HEMOGLOBIN 2022-02-15 04:18:00 Vic Mcdonald [facility] (A1C) [facility] PHOSPHORUS 2022-02-15 04:18:00 Vic Mcdonald [facility] LIPASE 2022-02-15 04:18:00 Vic Mcdonald [facility] MAGNESIUM 2022-02-15 04:18:00 Vic Mcdonald [facility] HEPATIC FUNCTION PANEL 2022-02-15 04:18:00 Vic Mcdonald [facility] ([id number]) (ALB,T.PRO,[facility] Medical Branch T,BU/BC,ALT,AST,ALK PHOS) BASIC METABOLIC PANEL 2022-02-15 04:18:00 Vic Mcdonald [facility] (NA, K, CL, CO2, GLUCOSE, Medica l Branch BUN, CREATININE, CA) ACUTE CARE VENOUS BLOOD 2022-02-15 04:18:00 Vic Mcdonald [facility] CBC WITH DIFF 2022-02-15 04:18:00 Vic Mcdonald [facility] GLYCOSYLATED HEMOGLOBIN 2022-02-15 04:18:00 Vic Mcdonald [facility] (A1C) [facility] PROTHROMBIN TIME / INR 2022-02-15 04:18:[address] [facility] LACTIC ACID WHOLE BLOOD 2022-02-15 04:18:00 Vic Mcdonald [facility] PHOSPHORUS 2022-02-15 04:18:00 Vic Mcdonald [facility] LIPASE 2022-02-15 04:18:00 Vic Mcdonald [facility] MAGNESIUM 2022-02-15 04:18:00 Vic Mcdonald [facility] HEPATIC FUNCTION PANEL 2022-02-15 04:18:00 Vic Mcdonald [facility] ([id number]) (ALB,T.PRO,[facility] T,BU/BC,ALT,AST,ALK PHOS) BASIC METABOLIC PANEL 2022-02-15 04:18:00 Vic Mcdonald [facility] (NA, K, CL, CO2, GLUCOSE, Medica l Branch BUN, CREATININE, CA) ACUTE CARE VENOUS BLOOD 2022-02-15 04:18:00 Vic Mcdonald [facility] CBC WITH DIFF 2022-02-15 04:18:00 Vic Mcdonald [facility] GLYCOSYLATED HEMOGLOBIN 2022-02-15 04:18:00 iVc Mcdonald [facility] [place] (A1C) [facility] PROTHROMBIN TIME / INR 2022-02-15 04:18:00 [facility] LACTIC ACID WHOLE BLOOD 2022-02-15 04:18:00 Vic Mcdonald [facility] EMERGENCY DEPARTMENT 2022-02-14 05:01:00 Doctor Unassigned, No [facility] HOSPITAL ADMISSION 2022-02-14 05:01:00 Doctor Unassigned, No Uni [facility] EMERGENCY DEPARTMENT 2022-02-14 05:01:00 Doctor Unassigned, No [facility] HOSPITAL ADMISSION 2022-02-14 05:01:00 Doctor Unassigned, No Uni [facility] EMERGENCY DEPARTMENT 2022-02-14 05:01:00 Doctor Unassigned, No [facility] HOSPITAL ADMISSION 2022-02-14 05:01:00 Doctor Unassigned, No Uni [facility] POCT GLUCOSE (AUTOMATED) 2022-02-10 19:34:00 Kaylee Argueta [facility] POCT GLUCOSE (AUTOMATED) 2022-02-10 19:34:00 Kaylee Argueta [facility] POCT GLUCOSE (AUTOMATED) 2022-02-10 16:39:00 Kaylee Argueta [facility] POCT GLUCOSE (AUTOMATED) 2022-02-10 16:39:00 Kaylee Argueta [facility] BASIC METABOLIC PANEL 2022-02-10 09:13:00 [facility] (NA, K, CL, CO2, GLUCOSE, Medica l Branch BUN, CREATININE, CA) BASIC METABOLIC PANEL 2022-02-10 09:13:00 [facility] (NA, K, CL, CO2, GLUCOSE, Medica l Branch BUN, CREATININE, CA) POCT GLUCOSE (AUTOMATED) 2022-02-10 01:45:00 EdionweKaylee versity [facility] POCT GLUCOSE (AUTOMATED) 2022-02-10 01:45:00 Ellie Kaylee Aguilar [facility] POCT GLUCOSE (AUTOMATED) 2022-02-09 21:36:00 EllieKaylee [facility] POCT GLUCOSE (AUTOMATED) 2022-02-09 21:36:00 Ellie Kaylee Aguilar versity [facility] POCT GLUCOSE (AUTOMATED) 2022-02-09 16:45:00 Ellie Kaylee Aguilar versity [facility] POCT GLUCOSE (AUTOMATED) 2022-02-09 16:45:00 Ellie Farzadlizet Lauren [facility] PHOSPHORUS 2022-02-09 13:17:00 Cathleen [facility] MAGNESIUM 2022-02-09 13:17:00 Cathleen [facility] BASIC METABOLIC PANEL 2022-02-09 13:17:00 Cathleen [facility] (NA, K, CL, CO2, GLUCOSE, Medica l Branch BUN, CREATININE, CA) BASIC METABOLIC PANEL 2022-02-09 13:17:00 Cathleen [facility] (NA, K, CL, CO2, GLUCOSE, Medica l Branch BUN, CREATININE, CA) MAGNESIUM 2022-02-09 13:17:00 [facility] 2022-02-09 13:17:00 Cathleen [facility] POCT GLUCOSE (AUTOMATED) 2022-02-09 12:42:00 [facility]SE (AUTOMATED) 2022-02-09 12:42:00 Ellie Farzadlizet [facility] PO[facility]UCOSE (AUTOMATED) 2022-02-09 01:08:00 Ellie Kaylee Aguilar versity [facility] POCT GLUCOSE (AUTOMATED) 2022-02-09 01:08:00 Ellie Farzadlizet [facility] URIN[facility]IS 2022-02-08 22:52:00 Cathleen [facility] URINE CULTURE 2022-02-08 22:52:00 Cathleen [facility] URINALYSIS 2022-02-08 22:52:00 Cathleen [facility] URINE CULTURE 2022-02-08 22:52:00 Cathleen [facility] POCT GLUCOSE (AUTOMATED) 2022-02-08 21:40:00 EdkeriKaylee [facility]SE (AUTOMATED) 2022-02-08 21:40:00 EdionweKaylee Vyatta versity [facility] POCT GLUCOSE (AUTOMATED) 2022-02-08 16:02:00 EdtutuweKaylee [facility] PO[facility]SE (AUTOMATED) 2022-02-08 16:02:00 EllieKaylee [facility] PO[facility]SE (AUTOMATED) 2022-02-08 13:08:00 EdkeriKaylee [facility] POCT GLUCOSE (AUTOMATED) 2022-02-08 13:08:00 Edkeri Kaylee Vyatta versity [facility] POCT GLUCOSE (AUTOMATED) 2022-02-08 10:58:00 EdkeriKaylee [facility] PO[facility]UCOSE (AUTOMATED) 2022-02-08 10:58:00 Ellie Kaylee Vyatta [facility] LACTIC ACID WHOLE BLOOD 2022-02-08 09:47:[address] [facility] LACTIC ACID WHOLE BLOOD 2022-02-08 09:47:[address] [facility] PHOSPHORUS 2022-02-08 09:46:00 Severino Beth [facility] MAGNESIUM 2022-02-08 09:46:00 Severino Beth [facility] COMP. METABOLIC PANEL 2022-02-08 09:46:00 Severino Beth [facility] ([id number]) [facility] CBC WITH DIFF 2022-02-08 09:46:00 Severino Beth [facility] CBC WITH DIFF 2022-02-08 09:46:00 Severino Beth [facility] COMP. METABOLIC PANEL 2022-02-08 09:46:00 Severino Beth [facility] ([id number]) Medical Branch MAGNESIUM 2022-02-08 09:46:00 Severino Beth [facility] PHOSPHORUS 2022-02-08 09:46:00 Severino Beth [facility] POCT GLUCOSE (AUTOMATED) 2022-02-08 07:47:00 Ellie Farzadlizet Uni [facility] POCT GLUCOSE (AUTOMATED) 2022-02-08 07:47:00 Edkeri Farzadlizet Vyatta [facility] POCT GLUCOSE (AUTOMATED) 2022-02-08 03:40:00 Edkeri Farzadlizet Vyatta [facility] POCT GLUCOSE (AUTOMATED) 2022-02-08 03:40:00 Ellie Farzadlizet Vyatta [facility] POCT GLUCOSE (AUTOMATED) 2022-02-08 00:43:00 Ellie Farzadlizet Vyatta [facility] POCT GLUCOSE (AUTOMATED) 2022-02-08 00:43:00 Ellie Farzadlizet Vyatta [facility] BASIC METABOLIC PANEL 2022-02-07 23:29:00 Severino Beth [facility] (NA, K, CL, CO2, GLUCOSE, Medica l Branch BUN, CREATININE, CA) BASIC METABOLIC PANEL 2022-02-07 23:29:00 Severino Beth [facility] (NA, K, CL, CO2, GLUCOSE, Medica l Branch BUN, CREATININE, CA) POCT GLUCOSE (AUTOMATED) 2022-02-07 22:28:00 Ellie Farzadlizet Vyatta [facility] POCT GLUCOSE (AUTOMATED) 2022-02-07 22:28:00 Kaylee Argueta Vyatta [facility] US RETROPERITONEAL 2022-02-07 22:27:00 Severino Beth [facility] US RETROPERITONEAL 2022-02-07 22:27:00 Severino Beth [facility] COMPLETE [facility] Branch CT ABDOMEN PELVIS WO 2022-02-07 20:05:00 Severino Beth [facility] CONTRAST Medical Branch CT ABDOMEN PELVIS WO 2022-02-07 20:05:00 Severino Beth [facility] CONTRAST [facility] POCT GLUCOSE (AUTOMATED) 2022-02-07 19:07:00 EllieKaylee [facility] PO[facility]SE (AUTOMATED) 2022-02-07 19:07:00 Edkeri Kaylee [facility] POCT GLUCOSE (AUTOMATED) 2022-02-07 18:00:00 Edkeri Kaylee [facility] POCT GLUCOSE (AUTOMATED) 2022-02-07 18:00:00 Ellie Kaylee Vyatta [facility] PROTEIN CREAT RATIO URINE 2022-02-07 17:45:00 Augusta Hendricks [facility] RANDOM [facility] PROTEIN CREAT RATIO URINE 2022-02-07 17:45:00 Augusta Hendricks [facility] RANDOM [facility] POCT GLUCOSE (AUTOMATED) 2022-02-07 17:25:00 Ellie Kaylee Vyatta [facility] POCT GLUCOSE (AUTOMATED) 2022-02-07 17:25:00 Ellie Farzadlizet Vyatta [facility] LACTIC ACID WHOLE BLOOD 2022-02-07 17:23:[address] [facility] LACTIC ACID WHOLE BLOOD 2022-02-07 17:23:[address] [facility] BASIC METABOLIC PANEL 2022-02-07 17:22:00 Severino Beth [facility] (NA, K, CL, CO2, GLUCOSE, Medica l Branch BUN, CREATININE, CA) BASIC METABOLIC PANEL 2022-02-07 17:22:00 Severino Beth [facility] (NA, K, CL, CO2, GLUCOSE, Medica l Branch BUN, CREATININE, CA) POCT GLUCOSE (AUTOMATED) 2022-02-07 16:07:00 [facility]ie [facility] POCT GLUCOSE (AUTOMATED) 2022-02-07 16:07:00 Edionwe Kaylee Vyatta [facility] POCT GLUCOSE (AUTOMATED) 2022-02-07 15:04:00 EdionweKaylee Vyatta [facility] POCT GLUCOSE (AUTOMATED) 2022-02-07 15:04:00 Edkeri Kaylee Vyatta [facility] POCT GLUCOSE (AUTOMATED) 2022-02-07 13:57:00 Ellie Kaylee Vyatta [facility] POCT GLUCOSE (AUTOMATED) 2022-02-07 13:57:00 Ellie Kaylee Vyatta [facility] URINE CULTURE 2022-02-07 13:50:00 [facility] URINE CULTURE 2022-02-07 13:50:00 [facility] LACTIC ACID WHOLE BLOOD 2022-02-07 12:57:00 Edkeri [facility] LACTIC ACID WHOLE BLOOD 2022-02-07 12:57:00 Ellie [facility] POCT GLUCOSE (AUTOMATED) 2022-02-07 12:55:00 Edkeri Kaylee Vyatta [facility] POCT GLUCOSE (AUTOMATED) 2022-02-07 12:55:00 Edkeri Kaylee Vyatta [facility] BASIC METABOLIC PANEL 2022-02-07 12:51:00 Ellie [facility] (NA, K, CL, CO2, GLUCOSE, Medica l Branch BUN, CREATININE, CA) BASIC METABOLIC PANEL 2022-02-07 12:51:00 Ellie [facility] (NA, K, CL, CO2, GLUCOSE, Medica l Branch BUN, CREATININE, CA) MRSA / MSSA SCREEN BY 2022-02-07 10:37:00 Edkeri [facility] [employer] PCR, [facility] MRSA / MSSA SCREEN BY 2022-02-07 10:37:00 Edkeri [facility] PCR, [facility] URINE DRUG (IMMUNOASSAY) 2022-02-07 10:36:00 Ellie Farzadlizet Vyatta [facility] SCREEN LACTIC ACID WHOLE BLOOD 2022-02-07 10:36:00 Edkeri [facility] URINE DRUG (LCMSMS) - 2022-02-07 10:36[facility]00 [facility] LACTIC ACID WHOLE BLOOD 2022-02-07 10:36[facility]00 [facility]MUNOASSAY) 2022-02-07 10:36[facility]00 [facility] URINE DRUG (LCMSMS) - 2022-02-07 10:36:00 [facility] PHOSPHORUS 2022-02-07 08:58:00 [facility]-07 08:58:00 [facility] BETA HYDROXY-BUTYRATE 2022-02-07 08:58:00 Carlene Alcantara [facility] BASIC METABOLIC PANEL 2022-02-07 08:58:00 [facility] (NA, K, CL, CO2, GLUCOSE, Medica l Branch BUN, CREATININE, CA) BETA HYDROXY-BUTYRATE 2022-02-07 08:58:00 Carlene Alcantara [facility] BASIC METABOLIC PANEL 2022-02-07 08:58:00 [facility] (NA, K, CL, CO2, GLUCOSE, Medica l Branch BUN, CREATININE, CA) MAGNESIUM 2022-02-07 08:58:00 Ellie [facility] PHOSPHORUS 2022-02-07 08:58:00 [facility]FF 2022-02-07 06:40:00 [facility] ACID WHOLE BLOOD 2022-02-07 06:40:00 [facility]LOOD 2022-02-07 06:40:00 Ellie [facility] CBC WITH DIFF 2022-02-07 06:40:00 [facility]UCOSE (AUTOMATED) 2022-02-07 05:14:00 EllieFarzadlizte Lauren [facility] POCT GLUCOSE (AUTOMATED) 2022-02-07 05:14:00 Kaylee Argueta [facility] ED BLADDER 2022-02-07 04:35:00 Carlene Alcantara [facility] ED BLADDER 2022-02-07 04:35:00 Carlene Alcantara [facility] CATHETERIZATION [facility] POCT GLUCOSE (AUTOMATED) 2022-02-07 03:51:00 EllieKaylee [facility] POCT GLUCOSE (AUTOMATED) 2022-02-07 03:51:00 Kaylee Argueta [facility] XR CHEST 1 VW 2022-02-07 02:43:07 Carlene Alcantara [facility] XR ANKLE 3+ VW LEFT 2022-02-07 02:43:07 Carlene Alcantara [facility] XR CHEST 1 VW 2022-02-07 02:43:07 Carlene Alcantara [facility] XR ANKLE 3+ VW LEFT 2022-02-07 02:43:07 Carlene Alcantara [facility] LACTIC ACID WHOLE BLOOD 2022-02-07 02:30:[address] [facility] LACTIC ACID WHOLE BLOOD 2022-02-07 02:30:[address] [facility] URINALYSIS 2022-02-07 01:38:00 Carlene Alcantara [facility] URINALYSIS 2022-02-07 01:38:00 Carlene Alcantara [facility] POCT GLUCOSE (AUTOMATED) 2022-02-07 01:36:00 Carlene Alcantara [facility] POCT GLUCOSE (AUTOMATED) 2022-02-07 01:36:00 Carlene Alcantara [facility] PHOSPHORUS 2022-02-07 01:24:00 Carlene Alcantara [facility] LIPASE 2022-02-07 01:24:00 Carlene Alcantara [facility] MAGNESIUM 2022-02-07 01:24:00 Carlene Alcantara [facility] TROPONIN I 2022-02-07 01:24:00 Carlene Alcantara [facility] COMP. METABOLIC PANEL 2022-02-07 01:24:00 Carlene Alcantara [facility] ([id number]) [place] [facility] SALICYLATE 2022-02-07 01:24:00 Carlene Alcantara [facility] ETHANOL 2022-02-07 01:24:00 Carlene Alcantara [facility] COMP. METABOLIC PANEL 2022-02-07 01:24:00 Carlene Alcantara [facility] ([id number]) [facility] LIPASE 2022-02-07 01:24:00 Carlene Alcanatra [facility] TROPONIN I 2022-02-07 01:24:00 Carlene Alcantara [facility] ETHANOL 2022-02-07 01:24:00 Carlene Alcantara [facility] ACETAMINOPHEN 2022-02-07 01:24:00 Carlene Alcantara [facility] PHOSPHORUS 2022-02-07 01:24:00 Carlene Alcantara [facility] MAGNESIUM 2022-02-07 01:24:00 Carlene Alcantara [facility] CT LUMBAR SPINE WO 2022-02-07 01:16:52 Carlene Alcantara [facility] CONTRAST [facility] CT THORACIC SPINE WO 2022-02-07 01:16:52 Carlene Alcantara [facility] CONTRAST [facility] CT THORACIC SPINE WO 2022-02-07 01:16:52 Carlene Alcantara [facility] CONTRAST [facility] CT LUMBAR SPINE WO 2022-02-07 01:16:52 Carlene Alcantara [facility] CONTRAST [facility] CT CERVICAL SPINE WO 2022-02-07 01:16:24 Carlene Alcantara [facility] CONTRAST [facility] CT HEAD WO CONTRAST 2022-02-07 01:16:24 Carlene Alcantara [facility] CT HEAD WO CONTRAST 2022-02-07 01:16:24 Carlene Alcantara [facility] CT CERVICAL SPINE WO 2022-02-07 01:16:24 Carlene Alcantara [facility] CONTRAST [facility] BLOOD CULTURE SCREEN 2022-02-07 00:41:00 Carlene Alcantara [facility] BLOOD CULTURE SCREEN 2022-02-07 00:41:00 Carlene Alcantara [facility] COVID-19 (ID NOW RAPID 2022-02-07 00:30:00 Carlene Alcantara [facility] TESTING) Medical Branch LAB ONLY COVID 2022-02-07 00:30:00 Carlene Alcantara [facility] COVID-19 (ID NOW RAPID 2022-02-07 00:30:00 Carlene Alcantara [facility] TESTING) Medical Branch LAB ONLY COVID 2022-02-07 00:30:00 Carlene Alcantara [facility] POCT GLUCOSE (AUTOMATED) 2022-02-07 00:05:00 Carlene Alcantara [facility] POCT GLUCOSE (AUTOMATED) 2022-02-07 00:05:00 Carlene Alcantara [facility] ACUTE CARE VENOUS BLOOD 2022-02-06 23:53:00 Carlene Alcantara [facility] ACUTE CARE VENOUS BLOOD 2022-02-06 23:53:00 Carlene Alcantara [facility] CBC WITH DIFF 2022-02-06 23:48:00 Carlene Alcantara [facility] CBC WITH DIFF 2022-02-06 23:48:00 Carlene Alcantara [facility] LACTIC ACID WHOLE BLOOD 2022-02-06 23:47:[address] [facility] LACTIC ACID WHOLE BLOOD 2022-02-06 23:47:[address] [facility] HB ECG ROUTINE & RHYTHM 2022-02-06 23:31:40 Cralene Alcantara [facility] HB ECG ROUTINE & RHYTHM 2022-02-06 23:31:40 Carlene Alcantara [facility] EMERGENCY DEPARTMENT 2022-02-06 05:01:00 [facility] EMERGENCY DEPARTMENT 2022-02-06 05:01:00 [facility] Name [facility] HOSPITAL ADMISSION 2022-02-06 05:01:00 Doctor Unassigned, No Uni versity [facility] CT FEMUR LEFT W CONTRAST 2022-01-27 02:34:07 [facility] 2022-01-27 02:34:07 [facility] POCT GLUCOSE(AGE >30DAYS) 2022-01-27 01:30:00 [facility] PO[facility](AGE >30DAYS) 2022-01-27 01:30:00 [facility]SE (AUTOMATED) 2022-01-27 01:28:00 Randall Sands [facility] POCT GLUCOSE (AUTOMATED) 2022-01-27 01:28:00 Randall Sands [facility] POCT GLUCOSE (AUTOMATED) 2022-01-27 00:38:00 Randall Sands [facility] POCT GLUCOSE (AUTOMATED) 2022-01-27 00:38:00 Randall Sands [facility] URINALYSIS 2022-01-26 23:58:00 Shavon [facility] URINALYSIS 2022-01-26 23:58:00 Randall Sands [facility] POCT GLUCOSE (AUTOMATED) 2022-01-26 23:26:00 Randall Sands [facility] POCT GLUCOSE (AUTOMATED) 2022-01-26 23:26:00 Randall Sands [facility] BASIC METABOLIC PANEL 2022-01-26 22:24:00 Randall Sands [facility] (NA, K, CL, CO2, GLUCOSE, Medica l Branch BUN, CREATININE, CA) CBC WITH DIFF 2022-01-26 22:24:00 Shavon [facility] COVID-19 (ID NOW RAPID 2022-01-26 22:24:00 [facility]ands [facility] TESTING) Medical Branch CBC WITH DIFF 2022-01-26 22:24:00 Randall Sands [facility] BASIC METABOLIC PANEL 2022-01-26 22:24:00 Randall Sands [facility] (NA, K, CL, CO2, GLUCOSE, Medica l Branch BUN, CREATININE, CA) COVID-19 (ID NOW RAPID 2022-01-26 22:24:00 Randall Sands [facility] TESTING) Medical Branch LAB ONLY COVID 2022-01-26 22:24:00 Shavon [facility] INTERPRETATION [facility] EMERGENCY SERVICES 2022-01-26 05:01:00 Doctor Unassigned, No [facility] [place] AGREEMENTS AND Name [facility] AUTHORIZATIONS EMERGENCY DEPARTMENT 2022-01-26 05:01:00 Doctor Unassigned, No U niversity [facility] DOCUMENTS Name Medical Branch LIPASE 2022-01-17 10:37:00 Jennifer Olivera [facility] COMP. METABOLIC PANEL 2022-01-17 10:37:00 Jennifer Olivera [facility] ([id number]) [facility] CBC WITH DIFF 2022-01-17 10:37:00 Jarod Jennifer [facility] AC PANEL 21 + LACTIC ACID 2022-01-17 10:37:00 Jennifer Olivera [facility] CBC WITH DIFF 2022-01-17 10:37:00 Jennifer Olivera [facility] COMP. METABOLIC PANEL 2022-01-17 10:37:00 Jennifer Olivera [facility] ([id number]) [facility] AC PANEL 21 + LACTIC ACID 2022-01-17 10:37:00 Jennifer Olivera [facility] LIPASE 2022-01-17 10:37:00 Jennifer Olivera [facility] URINALYSIS 2022-01-17 10:24:00 Jennifer Olivera [facility] URINALYSIS 2022-01-17 10:24:00 Jennifer Olviera [facility] EMERGENCY SERVICES 2022-01-17 05:01:00 Doctor Unassigned, No [facility] [place] AGREEMENTS AND Name Medical Branch AUTHORIZATIONS POCT GLUCOSE (AUTOMATED) 2022-01-12 22:53:00 Jennifer Olivera [facility] [place] [facility] POCT GLUCOSE (AUTOMATED) 2022-01-12 22:53:00 Jennifer Olivera [facility] [place] [facility] POCT GLUCOSE (AUTOMATED) 2022-01-12 12:17:00 Jennifer Olivera [facility] [place] [facility] POCT GLUCOSE (AUTOMATED) 2022-01-12 12:17:00 Jennifer Olivera [facility] [place] [facility] POCT GLUCOSE (AUTOMATED) 2022-01-12 04:47:00 Jennifer Olivera [facility] [place] [facility] POCT GLUCOSE (AUTOMATED) 2022-01-12 04:47:00 Jennifer Olivera [facility] [place] [facility] POCT GLUCOSE (AUTOMATED) 2022-01-12 01:43:00 Jennifer Olivera [facility] [place] [facility] POCT GLUCOSE (AUTOMATED) 2022-01-12 01:43:00 Jennifer Olivera [facility] [place] [facility] POCT GLUCOSE (AUTOMATED) 2022-01-11 21:51:00 Jennifer Olivera [facility] [place] [facility] POCT GLUCOSE (AUTOMATED) 2022-01-11 21:51:00 Jennifer Olivera [facility] [place] [facility] POCT GLUCOSE (AUTOMATED) 2022-01-11 17:04:00 Jennifer Olivera [facility] [place] [facility] POCT GLUCOSE (AUTOMATED) 2022-01-11 17:04:00 Jennifer Olivera [facility] [place] [facility] POCT GLUCOSE (AUTOMATED) 2022-01-11 13:09:00 Jennifer Olivera [facility] [place] [facility] POCT GLUCOSE (AUTOMATED) 2022-01-11 13:09:00 Jennifer Olivera [facility] [place] [facility] POCT GLUCOSE (AUTOMATED) 2022-01-11 08:32:00 Jennifer Olivera [facility] [place] [facility] POCT GLUCOSE (AUTOMATED) 2022-01-11 08:32:00 Jennifer Olivera [facility] [place] [facility] POCT GLUCOSE (AUTOMATED) 2022-01-11 05:45:00 Jennifer Olivera [facility] [place] [facility] POCT GLUCOSE (AUTOMATED) 2022-01-11 05:45:00 Jennifer Olivera versity of [facility] POCT GLUCOSE (AUTOMATED) 2022-01-11 02:43:00 Jennifer Olivera versity of [facility] POCT GLUCOSE (AUTOMATED) 2022-01-11 02:43:00 Jennifer Olivera versity of [facility] POCT GLUCOSE (AUTOMATED) 2022-01-10 22:37:00 Jennifer Olivera versity of [facility] POCT GLUCOSE (AUTOMATED) 2022-01-10 22:37:00 Jennifer Olivera versity of [facility] POCT GLUCOSE (AUTOMATED) 2022-01-10 18:04:00 Jennifer Olivera versity of [facility] POCT GLUCOSE (AUTOMATED) 2022-01-10 18:04:00 Jennifer Olivera versity of [facility] BASIC METABOLIC PANEL 2022-01-10 14:22:00 [facility] (NA, K, CL, CO2, GLUCOSE, Medica l Branch BUN, CREATININE, CA) BASIC METABOLIC PANEL 2022-01-10 14:22:00 [facility] (NA, K, CL, CO2, GLUCOSE, Medica l Branch BUN, CREATININE, CA) POCT GLUCOSE (AUTOMATED) 2022-01-10 13:30:00 Jennifer Olivera versity of [facility] POCT GLUCOSE (AUTOMATED) 2022-01-10 13:30:00 Jennifer Olivera versity of [facility] CRITICAL CARE 2022-01-10 11:11:00 Jennifer Olivera o [facility] CRITICAL CARE 2022-01-10 11:11:00 Jennifer Olivera [facility] POCT GLUCOSE (AUTOMATED) 2022-01-10 11:01:00 Jennifer Olivera versity of [facility] POCT GLUCOSE (AUTOMATED) 2022-01-10 11:01:00 Jennifer Olivera versity of [facility] POCT GLUCOSE (AUTOMATED) 2022-01-10 07:19:00 Jennifer Olivera versity of [facility] POCT GLUCOSE (AUTOMATED) 2022-01-10 07:19:00 Jennifer Olivera versity of [facility] BASIC METABOLIC PANEL 2022-01-10 05:53:00 Jennifer Olivera [facility] (NA, K, CL, CO2, GLUCOSE, Medica l Branch BUN, CREATININE, CA) BASIC METABOLIC PANEL 2022-01-10 05:53:00 Jennifer Olivera [facility] (NA, K, CL, CO2, GLUCOSE, Medica l Branch BUN, CREATININE, CA) POCT GLUCOSE (AUTOMATED) 2022-01-10 04:41:00 Jennifer Olivera [facility] POCT GLUCOSE (AUTOMATED) 2022-01-10 04:41:00 Jennifer Olivera [facility] URINALYSIS 2022-01-10 03:59:00 Jennifer Olivera [facility] URINE CULTURE 2022-01-10 03:59:00 Jennifer Olivera [facility] URINALYSIS 2022-01-10 03:59:00 Jennifer Olivera [facility] URINE CULTURE 2022-01-10 03:59:00 Jennifer Olivera [facility] POCT GLUCOSE (AUTOMATED) 2022-01-10 03:48:00 Jennifer Olivera [facility] POCT GLUCOSE (AUTOMATED) 2022-01-10 03:48:00 Jennifer Olivera [facility] AC PANEL 21 + LACTIC ACID 2022-01-10 02:23:00 Jennifer Olivera [facility] AC PANEL 21 + LACTIC ACID 2022-01-10 02:23:00 Jennifer Olivera [facility] LIPASE 2022-01-10 02:22:00 Jennifer Olivera [facility] COMP. METABOLIC PANEL 2022-01-10 02:22:00 Jennifer Olivera [facility] ([id number]) Medical Branch CBC WITH DIFF 2022-01-10 02:22:00 Jennifer Olivera [facility] COVID-19 (ID NOW RAPID 2022-01-10 02:22:00 Jennifer Olivera [facility] TESTING) Medical Branch LAB ONLY COVID 2022-01-10 02:22:00 Jennifer Olivera [facility] INTERPRETATION [facility] CBC WITH DIFF 2022-01-10 02:22:00 Jennifer Olivera [facility] COMP. METABOLIC PANEL 2022-01-10 02:22:00 Jennifer Olivera [facility] ([id number]) Medical Branch LIPASE 2022-01-10 02:22:00 Jennifer Olivera [facility] COVID-19 (ID NOW RAPID 2022-01-10 02:22:00 Jennifer Olivera [facility] TESTING) Medical Branch LAB ONLY COVID 2022-01-10 02:22:00 Jennifer Olivera [facility] INTERPRETATION [facility] HOSPITAL ADMISSION 2022-01-09 05:01:00 Doctor Unassigned, No Uni versity of [facility] EMERGENCY DEPARTMENT 2022-01-09 05:01:00 Doctor Unassigned, No [facility] [place] DOCUMENTS [facility] HOSPITAL ADMISSION 2022-01-09 05:01:00 Doctor Unassigned, No Uni versity [facility] POCT GLUCOSE (AUTOMATED) 2022-01-06 17:03:00 [facility] ([facility]OMATED) 2022-01-06 16:09:00 Negar [facility] HEPATIC FUNCTION PANEL 2022-01-06 09:01:00 Carlene Weaver [facility] ([id number]) (ALB,T.PRO,BILI Medical Branch T,BU/BC,ALT,AST,ALK PHOS) BASIC METABOLIC PANEL 2022-01-06 09:01:00 [facility] ([facility], [facility], CL, CO2, GLUCOSE, Medica l Branch BUN, CREATININE, CA) CBC WITH DIFF 2022-01-06 09:01:00 Carlene Weaver [facility] CBC WITH DIFF 2022-01-06 09:01:00 Carlene Weaver [facility] BASIC METABOLIC PANEL 2022-01-06 09:01:00 [facility] ([facility], K, CL, CO2, GLUCOSE, Medica l Branch BUN, CREATININE, CA) HEPATIC FUNCTION PANEL 2022-01-06 09:01:00 Carlene Weaver [facility] ([id number]) (ALB,T.PRO,BILI Medical Branch T,BU/BC,ALT,AST,ALK PHOS) POCT GLUCOSE (AUTOMATED) 2022-01-06 08:58:00 Negar Guardado [facility] POCT GLUCOSE (AUTOMATED) 2022-01-06 06:53:00 Negar Guardado [facility] POCT GLUCOSE (AUTOMATED) 2022-01-06 05:31:00 Negar Guardado [facility] POCT GLUCOSE (AUTOMATED) 2022-01-06 02:16:00 Negar Guardado [facility] POCT GLUCOSE (AUTOMATED) 2022-01-05 21:50:00 Negar Guardado [facility] BASIC METABOLIC PANEL 2022-01-05 20:45:00 [facility] (NA, K, CL, CO2, GLUCOSE, Medica l Branch BUN, CREATININE, CA) CBC WITH DIFF 2022-01-05 20:45:00 [facility] 2022-01-05 20:45:00 [facility] (NA, K, CL, CO2, GLUCOSE, Medica l Branch BUN, CREATININE, CA) CBC WITH DIFF 2022-01-05 20:45:00 [facility] POCT GLUCOSE (AUTOMATED) 2022-01-05 16:44:00 Negar Guardado [facility] POCT GLUCOSE (AUTOMATED) 2022-01-05 13:41:00 Negar Guardado [facility] URINE CULTURE 2022-01-05 06:41:00 Vadim Ferreira [facility] URINE CULTURE 2022-01-05 06:41:00 Vadim eFrreira [facility] POCT GLUCOSE (AUTOMATED) 2022-01-05 06:10:00 Vadim Ferreira [facility] CT ABDOMEN PELVIS W 2022-01-05 05:08:00 Vadim Ferreira [facility] CT ABDOMEN PELVIS W 2022-01-05 05:08:00 Vadim Ferreira [facility] URINALYSIS 2022-01-05 04:34:00 Vadim Ferreira [facility] COVID-19 (ID NOW RAPID 2022-01-05 04:34:00 Vadim Ferreira [facility] TESTING) Medical Branch LAB ONLY COVID 2022-01-05 04:34:00 Vadim Ferreira [facility] URINALYSIS 2022-01-05 04:34:00 Vadim Ferreira [facility] COVID-19 (ID NOW RAPID 2022-01-05 04:34:00 Vadim Ferreira [facility] TESTING) Medical Branch LAB ONLY COVID 2022-01-05 04:34:00 Vadim Ferreira [facility] INTERPRETATION [facility] LIPASE 2022-01-05 03:57:00 Vadim Ferreira [facility] COMP. METABOLIC PANEL 2022-01-05 03:57:00 Vadim Ferreira [facility] ([id number]) [facility] CBC WITH DIFF 2022-01-05 03:57:00 Vadim Ferreira [facility] CBC WITH DIFF 2022-01-05 03:57:00 Vadim Ferreira [facility] COMP. METABOLIC PANEL 2022-01-05 03:57:00 Vadim Ferreira [facility] ([id number]) [facility] LIPASE 2022-01-05 03:57:00 Vadim Ferreira [facility] EMERGENCY DEPARTMENT 2022-01-04 05:01:00 Doctor Unassigned, [facility] HOSPITAL ADMISSION 2022-01-04 05:01:00 Doctor Unassigned, No Uni versity [facility] POCT GLUCOSE (AUTOMATED) 2021-12-22 21:48:00 [facility] PO[facility]SE (AUTOMATED) 2021-12-22 17:03:00 Kaylee Argueta Uni versity [facility] POCT GLUCOSE (AUTOMATED) 2021-12-22 17:03:00 [facility] POCT GLUCOSE (AUTOMATED) 2021-12-22 12:44:00 Kaylee Argueta versity of [facility] POCT GLUCOSE (AUTOMATED) 2021-12-22 12:44:00 EdKaylee saavedra Uni versity of [facility] BASIC METABOLIC PANEL 2021-12-22 10:29:00 Negar Guardado [facility] (NA, K, CL, CO2, GLUCOSE, Medica l Branch BUN, CREATININE, CA) CBC WITH DIFF 2021-12-22 10:29:00 Geo [facility] MAGNESIUM 2021-12-22 10:29:00 Geo [facility] MAGNESIUM 2021-12-22 10:29:00 Geo [facility] BASIC METABOLIC PANEL 2021-12-22 10:29:00 Negar Guardado [facility] (NA, K, CL, CO2, GLUCOSE, Medica l Branch BUN, CREATININE, CA) CBC WITH DIFF 2021-12-22 10:29:00 Geo [facility] POCT GLUCOSE (AUTOMATED) 2021-12-22 10:28:00 Edkeri Mercy Uni versity of [facility] POCT GLUCOSE (AUTOMATED) 2021-12-22 10:28:00 Edtutuwe [facility] Uni versity of [facility] POCT GLUCOSE (AUTOMATED) 2021-12-22 05:33:00 Edionwe [facility] [place] [facility] POCT GLUCOSE (AUTOMATED) 2021-12-22 05:33:00 Edionwe [facility] [place] [facility] POCT GLUCOSE (AUTOMATED) 2021-12-22 04:37:00 Edionwe [facility] [place] [facility] POCT GLUCOSE (AUTOMATED) 2021-12-22 04:37:00 Edionwe, [facility] [place] [facility] POCT GLUCOSE (AUTOMATED) 2021-12-22 02:29:00 Edionwe [facility] [place] [facility] POCT GLUCOSE (AUTOMATED) 2021-12-22 02:29:00 Edionwe, [facility] [place] [facility] POCT GLUCOSE (AUTOMATED) 2021-12-22 00:52:00 Edionwe [facility] [place] [facility] POCT GLUCOSE (AUTOMATED) 2021-12-22 00:52:00 EdionweKaylee [facility] POCT GLUCOSE (AUTOMATED) 2021-12-21 21:52:00 JacobtutucourtKaylee [facility] POCT GLUCOSE (AUTOMATED) 2021-12-21 21:52:00 JacobtutucourtKaylee [facility] POCT GLUCOSE (AUTOMATED) 2021-12-21 16:42:00 EllieKaylee [facility] POCT GLUCOSE (AUTOMATED) 2021-12-21 16:42:00 [facility] XR CHEST 1 VW 2021-12-21 14:05:00 Geo [facility] XR SKULL <4 VW 2021-12-21 14:05:00 Geo [facility] XR ABDOMEN 2 VW 2021-12-21 14:05:00 Geo [facility] XR ABDOMEN 2 VW 2021-12-21 14:05:00 Geo [facility] XR CHEST 1 VW 2021-12-21 14:05:00 Geo [facility] XR SKULL <4 VW 2021-12-21 14:05:00 Geo [facility] POCT GLUCOSE (AUTOMATED) 2021-12-21 12:47:00 EllieKaylee [facility] POCT GLUCOSE (AUTOMATED) 2021-12-21 12:47:00 [facility] POCT GLUCOSE (AUTOMATED) 2021-12-21 08:59:00 [facility] POCT GLUCOSE (AUTOMATED) 2021-12-21 08:59:[address] [facility] GLYCOSYLATED HEMOGLOBIN 2021-12-21 08:56:00 Severino Beth [facility] (A1C) [facility] CBC WITH DIFF 2021-12-21 08:56:00 Kirit [facility] BASIC METABOLIC PANEL 2021-12-21 08:56:00 Severino Beth [facility] (NA, K, CL, CO2, GLUCOSE, Medica l Branch BUN, CREATININE, CA) MAGNESIUM 2021-12-21 08:56:00 Kirit [facility] PHOSPHORUS 2021-12-21 08:56:00 Kirit [facility] PHOSPHORUS 2021-12-21 08:56:00 Kirit [facility] MAGNESIUM 2021-12-21 08:56:00 Kirit [facility] BASIC METABOLIC PANEL 2021-12-21 08:56:00 Severino Beth [facility] (NA, K, CL, CO2, GLUCOSE, Medica l Branch BUN, CREATININE, CA) CBC WITH DIFF 2021-12-21 08:56:00 Kirit [facility] GLYCOSYLATED HEMOGLOBIN 2021-12-21 08:56:00 Kirit [facility] (A1C) [facility] POCT GLUCOSE (AUTOMATED) 2021-12-21 04:27:00 Kaylee Argueta Uni versity of [facility] POCT GLUCOSE (AUTOMATED) 2021-12-21 04:27:00 Kaylee Argueta Uni versity of [facility] POCT GLUCOSE (AUTOMATED) 2021-12-21 01:11:00 Kaylee Argueta Uni versity of [facility] POCT GLUCOSE (AUTOMATED) 2021-12-21 01:11:00 Kaylee Argueta Uni versity of [facility] POCT GLUCOSE (AUTOMATED) 2021-12-20 21:02:00 Kaylee Argueta Uni vers[facility] of [facility] POCT GLUCOSE (AUTOMATED) 2021-12-20 21:02:00 Farzad Arguetay Uni versity of [facility] POCT GLUCOSE (AUTOMATED) 2021-12-20 16:08:00 Kaylee Argueta Uni versity of [facility] POCT GLUCOSE (AUTOMATED) 2021-12-20 16:08:00 Kaylee Argueta Uni versity of [facility] POCT GLUCOSE (AUTOMATED) 2021-12-20 12:39:00 Kaylee Argueta Uni versity of [facility] POCT GLUCOSE (AUTOMATED) 2021-12-20 12:39:00 [facility] 2021-12-20 09:25:00 [facility] WITH [facility]FF 2021-12-20 09:25:00 Ellie [facility] BASIC METABOLIC PANEL 2021-12-20 09:25:00 Ellie [facility] (NA, K, CL, CO2, GLUCOSE, Medica l Branch BUN, CREATININE, CA) BASIC METABOLIC PANEL 2021-12-20 09:25:00 Ellie [facility] (NA, K, CL, CO2, GLUCOSE, Medica l Branch BUN, CREATININE, CA) CBC WITH DIFF 2021-12-20 09:25:00 Ellie [facility] LACTIC ACID WHOLE BLOOD 2021-12-20 09:25:00 Alex [facility] POCT GLUCOSE (AUTOMATED) 2021-12-20 08:56:[address] [facility] POCT GLUCOSE (AUTOMATED) 2021-12-20 08:56:[address] [facility] POCT GLUCOSE (AUTOMATED) 2021-12-20 04:51:[address] [facility] POCT GLUCOSE (AUTOMATED) 2021-12-20 04:51:[address] [facility] URINALYSIS 2021-12-20 02:47:00 Alex [facility] URINALYSIS 2021-12-20 02:47:00 [facility] 2021-12-20 02:29[facility]00 [facility]) 2021-12-20 02:29:00 Mario Johnson [facility] HB ECG ROUTINE & RHYTHM 2021-12-20 00:33:38 Alex [facility] HB ECG ROUTINE & RHYTHM 2021-12-20 00:33:38 Alex [facility] URINALYSIS 2021-12-20 00:28:00 [facility] 2021-12-20 00:28:00 Alex [facility] URINALYSIS 2021-12-20 00:28:00 [facility] 2021-12-20 00:28:00 Alex [facility] CBC WITH DIFF 2021-12-20 00:25:00 Alex [facility] COMP. METABOLIC PANEL 2021-12-20 00:25:00 Alex [facility] ([id number]) Medical Branch LIPASE 2021-12-20 00:25:00 Alex [facility] LACTIC ACID WHOLE BLOOD 2021-12-20 00:25:00 Alex [facility] ACUTE CARE VENOUS BLOOD 2021-12-20 00:25:00 [facility] BLOOD CULTURE SCREEN 2021-12-20 00:25:00 Alex [facility] BLOOD CULTURE SCREEN 2021-12-20 00:25:00 Alex [facility]anish[facility] LIPASE 2021-12-20 00:25:00 Alex [facility] COMP. METABOLIC PANEL 2021-12-20 00:25:00 Alex [facility] Upmcdanisha [facility] ([id number]) [facility] ACUTE CARE VENOUS BLOOD 2021-12-20 00:25:00 [facility] CBC WITH DIFF 2021-12-20 00:25:00 [facility]ACT[facility] WHOLE BLOOD 2021-12-20 00:25:00 Alex [facility] EMERGENCY DEPARTMENT 2021-12-19 05:01:00 Doctor Unassigned, No [facility] HOSPITAL ADMISSION 2021-12-19 05:01:00 Doctor Unassigned, No Uni vers[facility] CBC WITH DIFF 2021-12-18 17:57:00 Jolynn Talley [facility] BASIC METABOLIC PANEL 2021-12-18 17:57:00 Mayank [facility] (NA, K, CL, CO2, GLUCOSE, Medica l Branch BUN, CREATININE, CA) MAGNESIUM 2021-12-18 17:57:00 Mayank [facility] MAGNESIUM 2021-12-18 17:57:00 [facility] BASIC METABOLIC PANEL 2021-12-18 17:57:00 [facility] (NA, K, CL, CO2, GLUCOSE, Medica l Branch BUN, CREATININE, CA) CBC WITH DIFF 2021-12-18 17:57:00 [facility] POCT GLUCOSE (AUTOMATED) 2021-12-18 16:49:00 Terminella, Thomas [facility] POCT GLUCOSE (AUTOMATED) 2021-12-18 16:49:00 Terminella, Thomas [facility] POCT GLUCOSE (AUTOMATED) 2021-12-18 12:56:00 Terminella, Thomas [facility] POCT GLUCOSE (AUTOMATED) 2021-12-18 12:56:00 Terminella, Thomas [facility] POCT GLUCOSE (AUTOMATED) 2021-12-18 09:41:00 Terminella, Thomas [facility] POCT GLUCOSE (AUTOMATED) 2021-12-18 09:41:00 Terminella, Thomas [facility] POCT GLUCOSE (AUTOMATED) 2021-12-18 05:08:00 Terminella, Thomas [facility] POCT GLUCOSE (AUTOMATED) 2021-12-18 05:08:00 Terminella, Thomas [facility] POCT GLUCOSE (AUTOMATED) 2021-12-18 01:26:00 Terminella, Thomas [facility] POCT GLUCOSE (AUTOMATED) 2021-12-18 01:26:00 Terminella, Thomas [facility] POCT GLUCOSE (AUTOMATED) 2021-12-17 21:41:00 Terminella, Thomas [facility] POCT GLUCOSE (AUTOMATED) 2021-12-17 21:41:00 Terminella, Thomas [facility] POCT GLUCOSE (AUTOMATED) 2021-12-17 17:07:00 Terminella, Thomas [facility] POCT GLUCOSE (AUTOMATED) 2021-12-17 17:07:00 Terminella, Thomas [facility] POCT GLUCOSE (AUTOMATED) 2021-12-17 14:01:00 Terminella, Thomas [facility] POCT GLUCOSE (AUTOMATED) 2021-12-17 14:01:00 Terminella, Thomas [facility] POCT GLUCOSE (AUTOMATED) 2021-12-17 09:18:00 Terminella, Thomas [facility] POCT GLUCOSE (AUTOMATED) 2021-12-17 09:18:00 Terminella, Thomas [facility] POCT GLUCOSE (AUTOMATED) 2021-12-17 01:43:00 Terminella, Thomas [facility] POCT GLUCOSE (AUTOMATED) 2021-12-17 01:43:00 Terminella, Thomas [facility] POCT GLUCOSE (AUTOMATED) 2021-12-16 21:24:00 Albustami Vito [facility] POCT GLUCOSE (AUTOMATED) 2021-12-16 21:24:00 Albustami Vito [facility] POCT GLUCOSE (AUTOMATED) 2021-12-16 16:25:00 AlbustamiVito Uni vers[facility] POCT GLUCOSE (AUTOMATED) 2021-12-16 16:25:00 AlbustamiVito [facility] vers[facility] URINALYSIS 2021-12-16 15:46:00 Jolynn Talley [facility] URINE CULTURE 2021-12-16 15:46:00 [facility]-12-16 15:46:00 [facility] 2021-12-16 15:46:00 [facility] PO[facility]SE (AUTOMATED) 2021-12-16 15:36:00 Vito Mckeon [facility] POCT GLUCOSE (AUTOMATED) 2021-12-16 15:36:00 AlbVito cuenca [facility] POCT GLUCOSE (AUTOMATED) 2021-12-16 14:25:00 AlbVito cuenca [facility] POCT GLUCOSE (AUTOMATED) 2021-12-16 14:25:00 Vito Mckeon [facility] BASIC METABOLIC PANEL 2021-12-16 13:45:00 Vito Mckeon [facility] (NA, K, CL, CO2, GLUCOSE, Medica l Branch BUN, CREATININE, CA) BASIC METABOLIC PANEL 2021-12-16 13:45:00 Albjoellen Vito [facility] (NA, K, CL, CO2, GLUCOSE, Medica l Branch BUN, CREATININE, CA) POCT GLUCOSE (AUTOMATED) 2021-12-16 13:34:00 Vito Mckeon [facility] POCT GLUCOSE (AUTOMATED) 2021-12-16 13:34:00 AlbVito cuenca [facility] CRITICAL CARE 2021-12-16 13:05:05 Jarod [facility] CRITICAL CARE 2021-12-16 13:05:05 [facility] POCT GLUCOSE (AUTOMATED) 2021-12-16 12:23:00 Vito Mckeon [facility] POCT GLUCOSE (AUTOMATED) 2021-12-16 12:23:00 AlbbessyamiVito [facility] POCT GLUCOSE (AUTOMATED) 2021-12-16 11:24:00 AlbbessyamiVito [facility] POCT GLUCOSE (AUTOMATED) 2021-12-16 11:24:00 AlbVito cuenca [facility] POCT GLUCOSE (AUTOMATED) 2021-12-16 10:33:00 AlbbessyamiVito [facility] POCT GLUCOSE (AUTOMATED) 2021-12-16 10:33:00 AlbVito cuenca [facility] BASIC METABOLIC PANEL 2021-12-16 09:32:00 RosalindAmandaar [facility] (NA, K, CL, CO2, GLUCOSE, Medica l Branch BUN, CREATININE, CA) BASIC METABOLIC PANEL 2021-12-16 09:32:00 Rosalind Vito [facility] (NA, K, CL, CO2, GLUCOSE, Medica l Branch BUN, CREATININE, CA) POCT GLUCOSE (AUTOMATED) 2021-12-16 09:30:00 Vito Mckeon Uni versity [facility] POCT GLUCOSE (AUTOMATED) 2021-12-16 09:30:00 [facility] 2021-12-16 08:27:00 AlbVito cuenca Uni versity [facility] POCT GLUCOSE (AUTOMATED) 2021-12-16 08:27:00 Vito Mckeon Uni versity [facility] POCT GLUCOSE (AUTOMATED) 2021-12-16 07:23:00 AlbVito cuenc[facility]) 2021-12-16 07:23:00 AlbVito cuenc[facility]ATED) 2021-12-16 06:22:00 AlbVito cuenc[facility]ATED) 2021-12-16 06:22:00 AlbVito cuenca [facility] BASIC MET[facility]OLIC PANEL 2021-12-16 05:30:00 Vito Mckeon [facility] (NA, K, CL, CO2, GLUCOSE, Medica l Branch BUN, CREATININE, CA) BASIC METABOLIC PANEL 2021-12-16 05:30:00 Rosalind Vito [facility] (NA, K, CL, CO2, GLUCOSE, Medica l Branch BUN, CREATININE, CA) POCT GLUCOSE (AUTOMATED) 2021-12-16 05:27:00 Vito Mckeon Uni versity [facility] POCT GLUCOSE (AUTOMATED) 2021-12-16 05:27:00 AlbVito cuenca Uni versity [facility] POCT GLUCOSE (AUTOMATED) 2021-12-16 04:23:00 [facility]) 2021-12-16 04:23:00 AlbVito [facility]enc[facility]ATED) 2021-12-16 03:19:00 AlbVito [facility]enc[facility] ([facility]OMATED) 2021-12-16 03:19:00 AlbVito [facility]enc[facility]OMATED) 2021-12-16 02:24:00 AlbVito cuenca [facility] POCT GLUCOSE (AUTOMATED) 2021-12-16 02:24:00 Rosalind Vito [facility] KETONES URINE 2021-12-16 01:49:00 [facility] KETONES URINE 2021-12-16 01:49:00 [facility] BETA HYDROXY-BUTYRATE 2021-12-16 01:44:00 Talley [facility] BASIC METABOLIC PANEL 2021-12-16 01:44:00 [facility] (NA, K, CL, CO2, GLUCOSE, Medica l Branch BUN, CREATININE, CA) BETA HYDROXY-BUTYRATE 2021-12-16 01:44:00 Talley [facility] BASIC METABOLIC PANEL 2021-12-16 01:44:00 [facility] (NA, K, CL, CO2, GLUCOSE, Medica l Branch BUN, CREATININE, CA) POCT GLUCOSE (AUTOMATED) 2021-12-16 01:24:00 Vito Mckeon [facility] POCT GLUCOSE (AUTOMATED) 2021-12-16 01:24:00 AlbVito cuenca [facility] POCT GLUCOSE (AUTOMATED) 2021-12-16 00:18:00 AlbVito cuenc[facility]) 2021-12-16 00:18:00 V[facility] PO[facility] ([facility]OMATED) 2021-12-15 22:56:00 Vito Mckeon [facility] POCT GLUCOSE (AUTOMATED) 2021-12-15 22:56:00 Vito Mckeon [facility] BASIC METABOLIC PANEL 2021-12-15 22:03:00 Vito Mckeon [facility] (NA, K, CL, CO2, GLUCOSE, Medica l Branch BUN, CREATININE, CA) BASIC METABOLIC PANEL 2021-12-15 22:03:00 Vito Mckeon [facility] (NA, K, CL, CO2, GLUCOSE, Medica l Branch BUN, CREATININE, CA) POCT GLUCOSE (AUTOMATED) 2021-12-15 21:50:00 Vito Mckeon [facility] POCT GLUCOSE (AUTOMATED) 2021-12-15 21:50:00 Vito Mckeon [facility] POCT GLUCOSE (AUTOMATED) 2021-12-15 20:39:00 Vito Mckeon [facility] POCT GLUCOSE (AUTOMATED) 2021-12-15 20:39:00 Vito Mckeon [facility] POCT GLUCOSE (AUTOMATED) 2021-12-15 18:58:00 Vito Mckeon [facility] POCT GLUCOSE (AUTOMATED) 2021-12-15 18:58:00 Vito Mckeon [facility] BASIC METABOLIC PANEL 2021-12-15 17:46:00 Vito Mckeon [facility] (NA, K, CL, CO2, GLUCOSE, Medica l Branch BUN, CREATININE, CA) BASIC METABOLIC PANEL 2021-12-15 17:46:00 Vito Mckeon [facility] (NA, K, CL, CO2, GLUCOSE, Medica l Branch BUN, CREATININE, CA) POCT GLUCOSE (AUTOMATED) 2021-12-15 17:39:00 [facility]) 2021-12-15 17:39:00 AlbVito cuenca [facility] POCT GLUCOSE (AUTOMATED) 2021-12-15 16:22:00 Vito Mckeon [facility] POCT GLUCOSE (AUTOMATED) 2021-12-15 16:22:00 Albjoellen Vito [facility] POCT GLUCOSE (AUTOMATED) 2021-12-15 15:27:00 Albjoellen Vito [facility] POCT GLUCOSE (AUTOMATED) 2021-12-15 15:27:00 Albjoellen Vito [facility] POCT GLUCOSE (AUTOMATED) 2021-12-15 14:17:00 Albustami Vito [facility] POCT GLUCOSE (AUTOMATED) 2021-12-15 14:17:00 Albustami [facility] CBC WITHOUT DIFF 2021-12-15 13:33:00 [facility] WITHOUT DIFF 2021-12-15 13:33:00 [facility] POCT GLUCOSE (AUTOMATED) 2021-12-15 13:20:00 Rosalind Vito [facility] POCT GLUCOSE (AUTOMATED) 2021-12-15 13:20:00 Albustami [facility] POCT GLUCOSE (AUTOMATED) 2021-12-15 12:13:00 Albbessyami [facility] POCT GLUCOSE (AUTOMATED) 2021-12-15 12:13:00 Albjoellen [facility] XR CHEST 1 VW 2021-12-15 11:46:06 Rosalind [facility] XR CHEST 1 VW 2021-12-15 11:46:06 Rosalind [facility] MAGNESIUM 2021-12-15 10:54:00 Rosalind [facility] MRSA / MSSA SCREEN BY 2021-12-15 10:54:00 Rosalind [facility] PCR, [facility] BASIC METABOLIC PANEL 2021-12-15 10:54:00 Rosalind [facility] (NA, K, CL, CO2, GLUCOSE, Medica l Branch BUN, CREATININE, CA) OSMOLALITY, SERUM OR 2021-12-15 10:54:00 Rosalind [facility] PHOSPHORUS 2021-12-15 10:54:[address] [facility] BETA HYDROXY-BUTYRATE 2021-12-15 10:54:00 Rosalind [facility] PHOSPHORUS 2021-12-15 10:54:00 Rosalind [facility] MAGNESIUM 2021-12-15 10:54:00 Rosalind [facility] OSMOLALITY, SERUM OR 2021-12-15 10:54:00 Rosalind [facility] BETA HYDROXY-BUTYRATE 2021-12-15 10:54:00 [facility]OL[facility] PANEL 2021-12-15 10:54:00 [facility] (NA, K, CL, CO2, GLUCOSE, Medica l Branch BUN, CREATININE, CA) MRSA / MSSA SCREEN BY 2021-12-15 10:54:00 [facility] PCR, [facility] POCT GLUCOSE (AUTOMATED) 2021-12-15 10:53:00 Vito Mckeon [facility] POCT GLUCOSE (AUTOMATED) 2021-12-15 10:53:00 [facility]) 2021-12-15 08:46:00 [facility] PO[facility] ([facility]OMATED) 2021-12-15 08:46:00 Jennifer Olivera [facility] POCT GLUCOSE (AUTOMATED) 2021-12-15 07:39:00 Jennifer Olivera vers[facility] POCT GLUCOSE (AUTOMATED) 2021-12-15 07:39:00 Jennifer Olivera versity [facility] POCT GLUCOSE (AUTOMATED) 2021-12-15 07:02:00 Jennifer Olivera vers[facility] POCT GLUCOSE (AUTOMATED) 2021-12-15 07:02:00 Jennifer Olivera vers[facility] POCT GLUCOSE (AUTOMATED) 2021-12-15 06:17:00 Olivera, Jennifer [facility] POCT GLUCOSE (AUTOMATED) 2021-12-15 06:17:00 Jennifer Olivera [facility] AC PANEL 21 + LACTIC ACID 2021-12-15 05:36:00 [facility] 21 + LACTIC ACID 2021-12-15 05:36:00 [facility] PO[facility]SE (AUTOMATED) 2021-12-15 04:58:00 Jennifer Olivera [facility] POCT GLUCOSE (AUTOMATED) 2021-12-15 04:58:00 Jennifer Olivera [facility] CT ABDOMEN PELVIS W 2021-12-15 04:33:00 Jennifer Olivera [facility] CONTRAST [facility] CT ABDOMEN PELVIS W 2021-12-15 04:33:00 Jennifer Olivera [facility] CONTRAST [facility] COMP. METABOLIC PANEL 2021-12-15 04:20:00 Jennifer Olivera [facility] ([id number]) [facility] COMP. METABOLIC PANEL 2021-12-15 04:20:00 Jennifer Olivera [facility] ([id number]) [facility] CBC WITH DIFF 2021-12-15 03:14:00 Jennifer Olivera [facility] BLOOD CULTURE SCREEN 2021-12-15 03:14:00 Jennifer Olivera [facility] BLOOD CULTURE SCREEN 2021-12-15 03:14:00 Jennifer Olivera [facility] CBC WITH DIFF 2021-12-15 03:14:00 Jennifer Olivera [facility] ACTIVATED PARTIAL 2021-12-15 03:13:00 Jennifer Olivera [facility] / INR 2021-12-15 03:13:00 Jennifer Olivera [facility] LIPASE 2021-12-15 03:13:00 Jennifer Olivera [facility] TROPONIN I 2021-12-15 03:13:00 Jennifer Olivera [facility] N-TERMINAL PRO-BNP 2021-12-15 03:13:00 Jennifer Olivera [facility] LIPASE 2021-12-15 03:13:00 Jennifer Olivera [facility] TROPONIN I 2021-12-15 03:13:00 Jennifer Olivera [place] [facility] PROTHROMBIN TIME / INR 2021-12-15 03:13:00 Jennifer Olivera [facility] ACTIVATED PARTIAL 2021-12-15 03:13:00 [facility] N-TERMINAL PRO-BNP 2021-12-15 03:13:00 Jennifer Olivera [facility] LACTIC ACID WHOLE BLOOD 2021-12-15 03:12:[address] [facility] LACTIC ACID WHOLE BLOOD 2021-12-15 03:12:00 Jarod [facility] EKG-12 LEAD 2021-12-15 01:55:16 Doctor Unassigned, No Univer sity [facility] EKG-12 LEAD 2021-12-15 01:55:16 Doctor Unassigned, No [facility]iver [facility] EMERGENCY DEPARTMENT 2021-12-14 05:01:00 [facility]igned, [facility] 2021-12-14 05:01:00 Doctor Unassigned, No Uni versity [facility] BASIC METABOLIC PANEL 2021-11-28 09:31:00 [facility] (NA, K, CL, CO2, GLUCOSE, Medica l Branch BUN, CREATININE, CA) CBC WITH DIFF 2021-11-28 09:31:00 [facility] BASIC METABOLIC PANEL 2021-11-28 09:31:00 Leif [facility] (NA, K, CL, CO2, GLUCOSE, Medica l Branch BUN, CREATININE, CA) CBC WITH DIFF 2021-11-28 09:31:00 Leif [facility] BASIC METABOLIC PANEL 2021-11-27 08:57:00 Leif [facility] (NA, K, CL, CO2, GLUCOSE, Medica l Branch BUN, CREATININE, CA) CBC WITH DIFF 2021-11-27 08:57:00 Leif [facility] BASIC METABOLIC PANEL 2021-11-27 08:57:00 Peng Yadav [facility] (NA, K, CL, CO2, GLUCOSE, Medica l Branch BUN, CREATININE, CA) CBC WITH DIFF 2021-11-27 08:57:00 Leif [facility] CBC WITH DIFF 2021-11-24 10:55:00 Cinthya jennifer [facility] COMP. METABOLIC PANEL 2021-11-24 10:55:00 Cinthya jennifer [facility] ([id number]) [facility] N-TERMINAL PRO-BNP 2021-11-24 10:55:00 Cinthya [facility] COMP. METABOLIC PANEL 2021-11-24 10:55:00 Cinthya jennifer [facility] ([id number]) [facility] CBC WITH DIFF 2021-11-24 10:55:[address] [facility] N-TERMINAL PRO-BNP 2021-11-24 10:55:00 Cinthya [facility] CBC WITH DIFF 2021-11-23 11:33:00 Carlene eWaver [facility] COMP. METABOLIC PANEL 2021-11-23 11:33:00 Cinthya jennifer [facility] ([id number]) [facility] N-TERMINAL PRO-BNP 2021-11-23 11:33:00 Cinthya jennifer [facility] MAGNESIUM 2021-11-23 11:33:00 Cinthya jennifer [facility] MAGNESIUM 2021-11-23 11:33:[address] [facility] COMP. METABOLIC PANEL 2021-11-23 11:33:00 Cinthya jennifer [facility] ([id number]) [facility] CBC WITH DIFF 2021-11-23 11:33:00 Carlene Weaver [facility] N-TERMINAL PRO-BNP 2021-11-23 11:33:00 Cinthya jennifer [facility] ASPIRATE OR ABSCESS 2021-11-22 21:31:00 Imani Fleming [facility] CULTURE(AEROBIC/ANAEROBIC Medica l Branch ) ASPIRATE OR ABSCESS 2021-11-22 21:31:00 Imani Fleming [facility] CULTURE(AEROBIC/ANAEROBIC Medica l Branch ) PROTEIN CREAT RATIO URINE 2021-11-22 11:11:00 Courtney [facility], URINE RANDOM 2021-11-22 11:11:00 Courtney Mendes [facility] SODIUM, URINE RANDOM 2021-11-22 11:11:00 Courtney Mendes [facility] PROTEIN CREAT RATIO URINE 2021-11-22 11:11:00 [facility] VW 2021-11-22 11:07:43 Courtney Mendes [facility] XR FOOT 3+ VW LEFT 2021-11-22 11:07:43 Courtney Mendes [facility] XR CHEST 1 VW 2021-11-22 11:07:43 Courtney Mendes [facility] XR FOOT 3+ VW LEFT 2021-11-22 11:07:43 Courtney Mendes [facility] URINE DRUG (IMMUNOASSAY) 2021-11-22 11:07:00 Courtney Mendes [facility] SCREEN URINE DRUG (LCMSMS) - 2021-11-22 11:07:00 [facility] OPIATES PANEL Medical Branch URINE DRUG (IMMUNOASSAY) 2021-11-22 11:07:00 Courtney Mendes [facility] SCREEN URINE DRUG (LCMSMS) - 2021-11-22 11:07:00 Courtney Mendes [facility] SYNTHETIC OPIATES PANEL Medical Branch SEDIMENTATION RATE 2021-11-22 11:03:00 Courtney Mendes [facility] PROCALCITONIN 2021-11-22 11:03:00 Courtney Mendes [facility] CBC WITH DIFF 2021-11-22 11:03:00 Cinthya, [facility] COMP. METABOLIC PANEL 2021-11-22 11:03:00 Cinthya jennifer [facility] ([id number]) [facility] N-TERMINAL PRO-BNP 2021-11-22 11:03:00 Cinthya [facility] MAGNESIUM 2021-11-22 11:03:[address] [facility] PHOSPHORUS 2021-11-22 11:03:[address] [facility] CREATINE KINASE 2021-11-22 11:03:[address] [facility] VITAMIN D, 25-OH 2021-11-22 11:03:00 Cinthya [facility] VITAMIN B12, LEVEL 2021-11-22 11:03:00 Cinthya [facility] GLYCOSYLATED HEMOGLOBIN 2021-11-22 11:03:00 Cinthya [facility] ([address] PHOSPHORUS 2021-11-22 11:03:[address] [facility] CREATINE KINASE 2021-11-22 11:03:[address] [facility] MAGNESIUM 2021-11-22 11:03:[address] [facility] VITAMIN B12, LEVEL 2021-11-22 11:03:00 Cinthya [facility] COMP. METABOLIC PANEL 2021-11-22 11:03:00 Cinthya jennifer [facility] ([id number]) [facility] SEDIMENTATION RATE 2021-11-22 11:03:00 Cinthya [facility] CBC WITH DIFF 2021-11-22 11:03:[address] [facility] GLYCOSYLATED HEMOGLOBIN 2021-11-22 11:03:00 Cinthya [facility] ([address] N-TERMINAL PRO-BNP 2021-11-22 11:03:00 Cinthya [facility] VITAMIN D, 25-OH 2021-11-22 11:03:00 Cinthya [facility] PROCALCITONIN 2021-11-22 11:03:00 Cinthya jennifer [facility] CT ANGIOGRAM LOWER 2021-11-22 03:39:00 Jennifer Olivera [facility] EXTREMITY LEFT W CONTRAST Medica [facility] Branch CT ANGIOGRAM LOWER 2021-11-22 03:39:00 Jennifer Olivera [facility] EXTREMITY LEFT W CONTRAST Medica l [place] CT HEAD WO CONTRAST 2021-11-22 03:25:00 Jennifer Olivera [facility] CT HEAD WO CONTRAST 2021-11-22 03:25:00 Jennifer Olivera [facility] URINALYSIS 2021-11-22 01:22:00 Jennifer Olivera [facility] URINE CULTURE 2021-11-22 01:22:00 Jennifer Olivera [facility] URINALYSIS 2021-11-22 01:22:00 Jennifer Olivera [facility] URINE CULTURE 2021-11-22 01:22:00 Jennifer Olivera [facility] CBC WITH DIFF 2021-11-22 00:58:00 Jennifer Olivera [facility] ACTIVATED PARTIAL 2021-11-22 00:58:00 Jennifer Olivera [facility] PROTHROMBIN TIME / INR 2021-11-22 00:58:00 Jennifer Olivera [facility] COMP. METABOLIC PANEL 2021-11-22 00:58:00 Jennifer Olivera [facility] ([id number]) [facility] BLOOD CULTURE SCREEN 2021-11-22 00:58:00 Jennifer Olivera [facility] LACTIC ACID WHOLE BLOOD 2021-11-22 00:58:[address] [facility] N-TERMINAL PRO-BNP 2021-11-22 00:58:00 Courtney Mendes [facility] MAGNESIUM 2021-11-22 00:58:[address] [facility] PHOSPHORUS 2021-11-22 00:58:[address] [facility] FERRITIN SERUM 2021-11-22 00:58:[address] [facility] IRON PANEL 2021-11-22 00:58:[address] [facility] THYROID STIMULATING 2021-11-22 00:58:00 Cinthya [facility] LIPID PANEL ([id number])(TOTAL 2021-11-22 00:58:00 [facility], [facility] TRIGLYCERIDES, HDL) BLOOD CULTURE SCREEN 2021-11-22 00:58:00 Jennifer Olivera [facility] PHOSPHORUS 2021-11-22 00:58:00 Cinthya jennifer [facility] MAGNESIUM 2021-11-22 00:58:[address] [facility] FERRITIN SERUM 2021-11-22 00:58:[address] [facility] THYROID STIMULATING 2021-11-22 00:58:00 Cinthya [facility] COMP. METABOLIC PANEL 2021-11-22 00:58:00 Jennifer Olivera [facility] ([id number]) Medical Branch LIPID PANEL ([id number])(TOTAL 2021-11-22 00:58:00 Courtney Mendes [facility] CHOLESTEROL, [facility] TRIGLYCERIDES, HDL) IRON PANEL 2021-11-22 00:58:[address] [facility] CBC WITH DIFF 2021-11-22 00:58:00 Jennifer Olivera [facility] PROTHROMBIN TIME / INR 2021-11-22 00:58:00 Jennifer Olivera [facility] ACTIVATED PARTIAL 2021-11-22 00:58:00 Jennifer Olivera [facility] THRMPLAS [facility] N-TERMINAL PRO-BNP 2021-11-22 00:58:00 Courtney Mendes [facility] LACTIC ACID WHOLE BLOOD 2021-11-22 00:58:[address] [facility] EMERGENCY DEPARTMENT 2021-11-21 05:01:00 Doctor [facility]igned, No [facility] 2021-11-21 05:01:00 Doctor Unassigned, No [facility] HOSPITAL ADMISSION 2021-11-21 05:01:00 Doctor Unassigned, No Uni versity [facility] EMERGENCY DEPARTMENT 2021-11-21 05:01:00 Doctor Unassigned, No U niversity of [facility] HOSPITAL ADM - MISC 2021-11-21 05:01:00 Doctor Unassigned, No Un [facility]ity [facility] Spinal puncture, lumbar, 2021-10-24 20:30:00 Tony Gomez diagnostic; with fluoroscopic or CT guidance MAGNESIUM 2021-10-16 04:12:00 [facility] COMP. METABOLIC PANEL 2021-10-16 04:12:00 [facility] ([id number]) [facility] CBC WITH DIFF 2021-10-16 04:12:[address] [facility] CT HEAD WO CONTRAST 2021-09-29 00:15:29 Roger Neff [facility] URINALYSIS 2021-09-28 23:53:00 Roger Neff Cici [facility] COMP. METABOLIC PANEL 2021-09-28 23:52:00 Roger Neff [facility] ([id number]) [facility] Branch CBC WITH DIFF 2021-09-28 23:52:00 Roger Neff [facility] XR CHEST 1 VW 2021-08-07 03:03:32 Courtney Mendes [facility] COMP. METABOLIC PANEL 2021-08-06 11:57:00 [facility] ([id number]) [facility] Branch CBC WITH DIFF 2021-08-06 11:57:00 [facility] BASIC METABOLIC PANEL 2021-08-04 12:10:00 [facility] (NA, K, CL, CO2, GLUCOSE, Medica l Branch BUN, CREATININE, CA) CBC WITH DIFF 2021-08-04 12:09:00 Ellie [facility] URINALYSIS 2021-08-04 00:40:00 Hanh Gunter [facility] URINE CULTURE 2021-08-04 00:40:00 Hanh Gunter [facility] FECES CULTURE 2021-08-03 14:58:00 Ellie [facility] OCCULT (GUAIAC) BLOOD 2021-08-03 14:58:00 Ellie [facility] CLOSTRIDIUM DIFFICILE 2021-08-03 14:58:00 [facility] BY [facility] 2021-08-03 14:58:00 [facility] URINE DRUG (IMMUNOASSAY) 2021-08-03 10:11:00 [facility] SCREEN COVID-19 (ID NOW RAPID 2021-08-03 07:33:00 Lamine Serna [facility] TESTING) Medical Branch LAB ONLY COVID 2021-08-03 07:33:00 Lamine Serna [facility] INTERPRETATION [facility] COMP. METABOLIC PANEL 2021-08-03 06:18:00 Lamine Serna [facility] ([id number]) [facility] CBC WITH DIFF 2021-08-03 05:40:00 Lamine Serna [facility] URINALYSIS 2021-08-01 01:43:00 Stephanie Balderrama [facility] LIPASE 2021-08-01 01:40:00 Stephanie Balderrama [facility] COMP. METABOLIC PANEL 2021-08-01 01:40:00 Stephanie Balderrama [facility] ([id number]) [facility] CBC WITH DIFF 2021-08-01 01:38:00 Stephanie Balderrama [facility] XR CHEST 1 VW 2021-07-31 23:40:19 Stephanie Balderrama [facility] ASSIGNMENT OF BENEFITS 2021-07-31 22:05:40 Doctor Unassigned, No [facility] NOTICE OF PRIVACY 2021-07-31 22:04:58 Doctor Unassigned, No [facility] CONSENT/REFUSAL FOR 2021-07-31 22:04:33 Doctor Unassigned, No Un [facility] DIAGNOSIS AND TREATMENT Name Medical Branch URINALYSIS 2021-07-29 23:09:00 Lynette Fonseca [facility] BLOOD CULTURE SCREEN 2021-07-29 23:04:00 Lynette Fonseca [facility] D-DIMER 2021-07-29 22:49:00 Lynette Fonseca [facility] COVID-19 (ID NOW RAPID 2021-07-29 22:48:00 Lynette Fonseca [facility] TESTING) Medical Branch COMP. METABOLIC PANEL 2021-07-29 22:17:00 Lynette Fonseca [facility] ([id number]) [facility] Branch CBC WITH DIFF 2021-07-29 22:17:00 Lynette Fonseca [facility] XR CHEST 1 VW 2021-07-29 21:47:19 Lynette Fonseca [facility] COMP. METABOLIC PANEL 2021-06-07 22:20:00 Sidney Sanford [facility] ([id number]) [facility] CBC WITH DIFF 2021-06-07 22:20:00 Singer [facility] o f [facility] CT ABDOMEN PELVIS WO 2020-11-21 00:39:40 Brittany Helms Uni [facility] CONTRAST [facility] Branch LIPASE 2020-11-21 00:06:00 Sony Helmso F [facility] COMP. METABOLIC PANEL 2020-11-21 00:06:00 Brittany Helms F Un [facility] ([id number]) [facility] CBC WITH DIFF 2020-11-21 00:06:00 IbKimberly guzmanusho F [facility] URINALYSIS 2020-11-21 00:00:00 Sony Helmso F [facility] COVID-19 (ID NOW RAPID 2020-11-21 00:00:00 IbtreverunKimberly albarranusho 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 Plan of Care Planned Activity Planned Date Details Comments Source Future Scheduled 2022-07-[address] [facility] 00:[facility]:00 (procedure) [code = [facility] [id number]] Future Scheduled 2022-07-[address] [facility] 00:00:00 (procedure) [code = [facility] [id number]] Future Scheduled 2022-07-[address] [facility] 00:00:00 (procedure) [code = [facility] [id number]] Future Scheduled 2022-03-15 INFLUENZA VACCINE (#1) [facility] [code = INFLUENZA Medical Ce nter VACCINE (#1)] Future Scheduled 2022-03-15 INFLUENZA VACCINE (#1) [facility] 00:00:00 [code = INFLUENZA Medical Ce nter VACCINE (#1)] Future Scheduled 2021-07-[address] [facility] 00:00:00 (12+) [code = Medical Center DEPRESSION SCREENING (12+)] Future Scheduled 2021-07-[address] [facility] 00:00:00 (12+) [code = Medical Center DEPRESSION SCREENING (12+)] Future Scheduled 2021-03-[address] [facility] 00:00:00 (Season Ended) [code = Medic hi Center INFLUENZA VACCINE (Season Ended)] Future Scheduled 2020-07-[address] [facility] 00:00:00 (12+) [code = Medical Center DEPRESSION SCREENING (12+)] Future Scheduled 2019-10-[address] [facility] 00[facility]00 measurement Medical Center (procedure) [code = 92961911] Future Scheduled 2019-10-[address] [facility] 00[facility]00 measurement Medical Center (procedure) [code = 51407911] Future Scheduled 2019-10-[address] [facility] 00:[facility]00 measurement Medical Center (procedure) [code = 23647038] Future Scheduled 2004 DTAP/TDAP/TD VACCINES CH I [...] C Medical Center SCREENING] Future Scheduled [address] [facility] 00:00:00 Counseling and Medical Cente r Screening (12+) [code = Tobacco Cessation Counseling and Screening (12+)] Future Scheduled 1997 COVID-19 VACCINE (1) [facility] 00:00:00 [code = COVID-[address] VACCINE (1)] Future Scheduled [address] DIABETIC EYE EXAM [facility] 00:00:00 [code = DIABETIC EYE Medical Center EXAM] Future Scheduled 1995 Urine screening for [facility] 00:00:00 protein (procedure) Medical Center [code = 813459073] Future Scheduled 1995 DIABETIC EYE EXAM [facility] 00:00:00 [code = DIABETIC EYE Medical Center EXAM] Future Scheduled 1995 Urine screening for [facility] 00:00:00 protein (procedure) Medical Center [code = 250690789] Future Scheduled 1995 DIABETIC EYE EXAM [facility] 00:00:00 [code = DIABETIC EYE Medical Center EXAM] Future Scheduled 1995 Urine screening for [facility] 00:00:00 protein (procedure) Medical Center [code = 539567342] Future Scheduled [address] [facility] 00:00:00 0-64 YRS (1 - PCV) Medical C enter [code = PNEUMOCOCCAL VACCINE 0-64 YRS (1 - PCV)] Future Scheduled [address] [...] = COVID-[address] VACCINE (#1)] Future Scheduled 1985 COVID-19 VACCINE (#1) [facility] 00:00:00 [code = COVID-[address] VACCINE (#1)] Encounters Start End Encounter Admission Attending Care Care Encounter Source Date/Time Date/Time Type Type Clinicians Facility Department ID 2021-10-23 Outpatient [facility] [id number] [place] 08:22:27 0411 [facility] 2021-10-09 Outpatient [facility] [id number] [place] 11:10:01 0328 [facility] 2021-08-09 Outpatient Nichole, STLMLC STLC [id number] Common 13:45:16 Eren [id number] [facility] 2021-08-09 Outpatient Nichole, STLMLC STLMLC [id number] Common 13:17:39 Eren 42984 [facility] 2021-08-09 Outpatient Nichole, STLMLC STLMLC [id number] Common 13:16:34 Eren [id number] [facility] 2022-05-20 2022-05-21 Outpatient Mark [facility] [id number] Univers 16:26:00 17:36:00 NEGAR saba [facility] 2022-05-20 2022-05-21 Emergency Cesaraugustin Lynette Hi [facility] 1.2.840 .114 [id number] [facility] 16:26:00 17:36:00 Negar [facility] 4.2.7.2.686 [facility] [id number] [place] [address] Branch 2022-05-142022-05-14 Emergency X CONCHIS, [facility] ERT [id number] Univers 20:12:00 22:15:00 STEPHANIE saba [facility] 2022-05-14 2022-05-14 Emergency Conchis, [facility] 1.2.912.099 [id number] Univers 20:12:00 22:15:00 Stephanie Quiles RENEE 350.1.13.10 ity of [place] 4.2.7.2.686 [place] [facility] [id number] [place] 310354 Branch 2022-05-12 2022-05-12 Emergency X DAPHNE, [facility] ERT [id number] Univers 19:14:00 22:40:00 LAMINE ity [facility] 2022-05-12 2022-05-12 [facility] 1.2.023.290 [id number] Univers 19:14:00 22:40:00 Lamine DURAN 350.1.13.10 ity [facility] 4.2.7.2.686 [facility] [id number] [place] 310354 [place] 2022-05-08 2022-05-08 Transition DEVANTE Zepeda 1.2.840.114 [id number] Univers 00:00:00 00:00:00 of Heidy GILLESPIE 350.1.13.10 ity of [place]2.7.2.686 [place] [id number] [facility] 403 Branch 2022-05-04 2022-05-06 Inpatient X ELLIE [facility] [id number] Univers 00:19:00 12:45:00 KAYLEE ity [facility] 2022-05-04 2022-05-06 [facility] Opal Rivasoneil [facility] 1.2.8 40.114 [id number] Univers 00:19:00 12:45:00 Encounter Kaylee Argueta 350.1.13.10 ity of [place] 4.2.7.2.686 [facility] [id number] [place] 310351 Branch 2022-05-01 2022-05-01 Outpatient R BEVERLY [facility] [id number] Univers 08:00:00 08:00:00 SARAH BETH ity [facility] 2022-04-23 2022-04-23 Outpatient R BEVERLY [facility] [id number] Univers 08:00:00 08:00:00 SARAH BETH ity of [facility] 2022-04-04 2022-04-04 Outpatient R AMIE YUDI [facility] [id number] Univers 14:00:00 14:00:00 YUDI HOLLOWAY ity [facility] 2022-04-02 2022-04-02 Outpatient R BEVERLY [facility] [id number] Univers 08:30:00 08:30:00 SARAH BETH ity [facility] 2022-03-12 2022-03-12 Outpatient R BEVERLY [facility] [id number] Univers 08:00:00 08:00:00 SARAH BETH ity [facility] 2022-03-02 2022-03-02 Outpatient R BEVERLY [facility] [id number] Univers 11:30:00 11:30:00 SARAH BETH ity [facility] 2022-03-01 2022-03-01 Telephone ORION Golden 1.2.840.114 [id number] Univers 00:00:00 00:00:00 Vesta KING 350.1.13.10 i ty of [facility] 4.2.7.2.686 [place]mi as [id number] [facility] 025 Branch 2022-03-01 2022-03-01 Telephone Renetta VTMINO 1.2.701.400 [id number] Univers 00:00:00 00:00:00 Concetta MULTISPEC 350.1.13.10 ity of [place].7.2.686 [place] [id number] [facility] [place] 389 Branch [facility] 2022-02-26 2022-02-26 Transition DEVANTE Alvarado 1.2.840.114 [id number] Univers 00:00:00 00:00:00 of Care Kristie GILLESPIE 350.1.13.10 i ty of [place].2.7.2.686 [place] [id number] [facility] 403 Branch 2022-02-14 2022-02-23 Inpatient X RICARDO CONROY [facility] [place] [id number] Univers 22:57:00 15:56:00 ity of [facility] 2022-02-14 2022-02-23 Hospital Vic Mcdonald Tanja LOVE 1.2.840. 114 [id number] Univers 22:57:00 15:56:00 Encounter Royer Brooke CHRISTINE 350.1 .13.10 ity of Michelle [facility] 4.2.7.2.686 [facility] G [id number] [facility] Ricardo Conroy 095 Branch 2022-02-20 2022-02-20 Anesthesia Heide Abraham 1.2.84 0.114 [id number] Univers 11:25:00 12:55:00 Event Huy Singh 350.1.13.10 ity of HOSPITAL 4.2.7.2.686 Tim as [id number] [facility] 103 Branch 2022-02-20 2022-02-20 Surgery IVAN Paul 1.2.106.252 [id number] Univers 10:12:00 11:55:00 Sarah Beth SEALY 350.1.13.10 ity of [facility] 4.2.7.2.686 Tim as [id number] [facility] 103 Branch 2022-02-14 2022-02-14 Travel 1.2.840.1 1.2.758.458 [id number] Univers 00:00:00 00:00:00 22615.1.1 350.1.13.10 ity of 3.104.2.7 4.[place].3.698 [place] .3.552378 084.8 Medica l .8 Branch 2022-02-12 2022-02-12 Transition Duane, 1.2.840.4 [id number] Univers 00:00:00 00:00:00 of Care Kamila 60986.1.1 i ty of 3.104.2.7 [place] .3.390371 Medica l .8 Branch 2022-02-06 2022-02-10 Inpatient X CATHLEEN [facility] [id number] Univers 18:31:00 18:27:00 DILEEP ity of [facility] 2022-02-06 2022-02-10 Hospital Carlene Alcantara 1.2.840.1 [id number] Univers 18:31:00 18:27:00 Encounter Kaylee Argueta 53165.1.1 ity of Dileep Connolly 3.104.2.7 [place] .3.337950 Medica l .8 [place] 2022-02-07 2022-02-07 Outpatient [facility] [id number] Univers 13:00:00 13:00:00 SHAHBAZ saba o f [facility] 2022-02-06 2022-02-06 Travel 1.2.840.1 1.2.817.367 [id number] Univers 00:00:00 00:00:00 40438.1.1 350.1.13.10 ity of 3.104.2.7 4.2.7.3.698 [place] .3.445991 084.8 Medica l .8 [place] 2022-01-26 2022-01-26 Emergency X SINGER [facility] ERT [id number] Univers 17:06:00 23:29:00 SIDNEY ity [facility] 2022-01-26 2022-01-26 Emergency Randall [place]ands 1.2.840.1 [id number] Univers 17:06:00 23:29:00 Sidney Sanford 61233.1.1 ity of 3.104.2.7 [place] .3.777829 Medica l .8 [place] 2022-01-26 2022-01-26 Travel 1.2.840.1 1.2.151.809 [id number] Univers 00:00:00 00:00:00 61110.1.1 350.1.13.10 ity of 3.104.2.7 4.[place].7.3.698 [place] .3.083915 084.8 Medica l .8 [place] 2022-01-19 2022-01-19 Outpatient Damaso [facility] [id number] Univers 14:00:00 14:00:00 SHAHBAZ saba o f [facility] 2022-01-17 2022-01-17 Emergency [facility] ERT [id number] Univers 04:52:00 08:20:00 JENNIFER saba of [facility] 2022-01-17 2022-01-17 Emergency Jarod, 1.2.840.6 [id number] Univers 04:52:00 08:20:00 Jennifer 97458.1.1 ity of 3.104.2.7 [place] .3.975855 Medica l .8 [place] 2022-01-17 2022-01-17 Travel 1.2.840.1 1.2.655.269 [id number] Univers 00:00:00 00:00:00 59621.1.1 350.1.13.10 ity of 3.104.2.7 4.[place].7.3.698 [place] .3.105044 084.8 Medica l .8 [place] 2022-01-16 2022-01-16 Transition Zepeda, 1.2.840.2 [id number] Univers 00:00:00 00:00:00 of Care Kamila 77961.1.1 i ty of 3.104.2.7 [place] .3.122393 Medica l .8 [place] 2022-01-09 2022-01-12 Inpatient [facility] [id number] Univers 20:31:00 21:18:00 DOV wandy [facility] 2022-01-09 2022-01-12 Hospital Jennifer Olivera 1.2.840.1 [id number] Univers 20:31:00 21:18:00 Encounter Dontae Talley 55472.1.1 ity of Ashutosh Buenrostroin 3.104.2.7 [place] .3.106807 Medica l .8 [place] 2022-01-10 2022-01-10 Transition Zepeda, 1.2.840.5 [id number] Univers 00:00:00 00:00:00 of Care Kamila 96975.1.1 i ty of 3.104.2.7 [place] .3.612479 Medica l .8 Branch 2022-01-09 2022-01-09 Travel 1.2.840.1 1.2.980.056 [id number] Univers 00:00:00 00:00:00 77289.1.1 350.1.13.10 ity of 3.104.2.7 4.2.7.3.698 [place] .3.056088 084.8 Medica l .8 [place] 2022-01-08 2022-01-08 Transition Zepeda, 1.2.840.9 [id number] Univers 00:00:00 00:00:00 of Care Kamila 45873.1.1 i ty of 3.104.2.7 [place] .3.740489 Medica l .8 [place] 2022-01-04 2022-01-06 Inpatient X [facility] [id number] Univers 22:21:00 16:16:00 NEGAR [facility] 2022-01-04 2022-01-06 Hospital Vadim Ferreira Andrew 1.2.840.8 [id number] Univers 22:21:00 16:16:00 Encounter Negar Guardado 44211.1.1 ity of 3.104.2.7 [place] .3.953272 Medica l .8 [place] 2022-01-04 2022-01-04 Travel 1.2.840.1 1.2.756.872 [id number] Univers 00:00:00 00:00:00 93891.1.1 350.1.13.10 ity of 3.104.2.7 4.2.7.3.698 [place] .3.424882 084.8 Medica l .8 [place] 2021-12-19 2021-12-22 Outpatient X [facility] [id number] Univers 18:25:00 19:30:00 KAYLEE [facility] 2021-12-19 2021-12-22 Emergency Mario Johnson 1.2.840.9 [id number] Univers 18:25:00 19:30:00 Kaylee Argueta 27831.1.1 ity of 3.104.2.7 [place] .3.793992 Medica l .8 Branch 2021-12-20 2021-12-20 Travel 1.2.840.1 1.2.440.061 [id number] Univers 00:00:00 00:00:00 88758.1.1 350.1.13.10 ity of 3.104.2.7 4.2.7.3.698 [place] .3.584437 084.8 Medica l .8 Branch 2021-12-19 2021-12-19 Travel 1.2.840.1 1.2.153.276 [id number] Univers 00:00:00 00:00:00 36576.1.1 350.1.13.10 ity of 3.104.2.7 4.2.7.3.698 [place] .3.048695 084.8 Medica l .8 Branch 2021-12-19 2021-12-19 Transition Alvarado, 1.2.840.9 [id number] Univers 00:00:00 00:00:00 of Care Kristie Johnson 48724.1.1 ity of 3.104.2.7 [place] .3.072088 Medica l .8 Branch 2021-12-14 2021-12-18 Inpatient X [facility] [id number] Univers 20:53:00 18:25:00 KIRIT atkins [facility] 2021-12-14 2021-12-18 [facility] Jennifer Olivera 1.2.840.1 [id number] Univers 20:53:00 18:25:00 Encounter Vito Mckeon 19746.1.1 ity of [place] 3.104.2.7 [place] [employer] .3.947687 Medical Kirit Lara .8 Branch 2021-12-14 2021-12-14 Travel 1.2.840.1 1.2.470.704 [id number] Univers 00:00:00 00:00:00 75000.1.1 350.1.13.10 ity of 3.104.2.7 4.2.7.3.698 [place] .3.647424 084.8 Medica l .8 [place] 2021-11-29 2021-11-29 Transition Zepeda, 1.2.840.3 [id number] Univers 00:00:00 00:00:00 of Care Kamila 01391.1.1 i ty of 3.104.2.7 [place] .3.110187 Medica l .8 [place] 2021-11-21 2021-11-28 Inpatient X CINTHYA [facility] [place] [id number] Univers 19:10:00 17:32:00 ADNAN ity of [facility] 2021-11-21 2021-11-28 Hospital Jennifer Olivera 1.2.840.1 [id number] Univers 19:10:00 17:32:00 Encounter Courtney Mendes 51031.1.1 ity of 3.104.2.7 [place] .3.809950 Medica l .8 [place] 2021-11-21 2021-11-21 Travel 1.2.840.1 1.2.776.466 [id number] Univers 00:00:00 00:00:00 83591.1.1 350.1.13.10 ity of 3.104.2.7 4.2.7.3.698 [place] .3.907980 084.8 Medica l .8 [place] 2021-10-24 2021-10-[address] [facility] 5510 [id number] Memoria 12:00:00 22:50:00 fidelina Gomez [address] [place] [address] 2021-10-24 2021-10-[address] [facility] 5510 [id number] Memoria 12:00:00 22:50:00 fidelina Gomez [address] [place] [address] 2021-10-24 2021-10-25 Outpatient U REUBEN [facility] 2097 [facility] 07:00:00 17:50:00 AKASH 2021-10-24 2021-10-25 Outpatient Reuben [facility] [id number] 07:00:00 17:50:00 Akash Frankel 2021-10-20 2021-10-20 Outpatient Reuben, [facility] [id number] 18:14:00 18:14:00 Akash Frankel 2021-10-15 2021-10-16 Emergency X , [facility] ERT [id number] Univers 22:45:00 01:52:00 SIDNEY saba [facility] 2021-10-15 2021-10-16 Emergency [facility] 1.2.061.281 [id number] Univers 22:45:00 01:52:00 Sidney DURAN 350.1.13.10 i ty [facility] 4.2.7.2.686 [facility] [id number] [address] 2021-10-06 2021-10-10 Inpatient [facility]Flavo [facility] [id number] Memoria 05:12:00 15:30:[address] 2021-10-06 2021-10-[address] [facility] [id number] Memoria 05:12:00 15:30:[address] 2021-10-06 2021-10-10 Outpatient Danita, [facility] [id number] 00:12:00 10:30:00 Josemanuel Chan 2021-10-06 2021-10-06 [facility] [id number] Memoria 02:51:00 02:51:[address] 2021-10-06 2021-10-06 [facility] [id number] Memoria 02:51:00 02:51:[address] 2021-10-06 2021-10-06 Outpatient Danita, [facility] [id number] 00:12:00 00:12:00 Josemanuel Sawyer [facility]Ponce 2021-10-05 2021-10-05 Outpatient Danita, [facility] [id number] 21:51:00 21:51:00 Josemanuel Darek [facility] 2021-09-28 2021-09-28 Emergency X Roger NEFF [facility] ERT [id number] Univers 18:08:00 22:51:00 ity of [facility] 2021-09-28 2021-09-28 Emergency Roger Neff [facility] [id number] Univers 18:08:00 22:51:00 Cici DURAN [id number] i ty of [place] [id number] [facility] [phone] [place] [id number] [place] 2021-08-09 2021-08-09 Transition DEVANTE Zepeda [id number] Univers 00:00:00 00:00:00 of Care Kamila GILLESPIE [id number] ity of [place] [id number] [facility] [id number] [facility] [address] 2021-08-02 2021-08-08 Inpatient X [facility] [id number] Univers 19:07:00 19:39:00 [facility] 2021-08-02 2021-08-08 [facility] 1.2.840. [id number] Univers 19:07:00 19:39:00 Encounter Kaylee Argueta [id number] ity [facility] [id number] [place] [phone] 2021-07-31 2021-07-31 Emergency X [facility] ERT [id number] Univers 14:41:00 22:07:00 STEPHANIE [facility] 2021-07-31 2021-07-31 [facility] [id number] Univers 14:41:00 22:07:00 Stephanie DURAN [id number] ity [facility] [id number] [facility] [phone] [address] 2021-07-29 2021-07-29 [facility] [id number] Univers 14:49:00 21:33:00 [facility] 2021-07-29 Emergency [facility] [id number] Univers 14:49:00 21:33:00 Lynette DURAN [id number] ity [place] [id number] [facility] [id number] [address] 2021-07-11 2021-07-11 Laboratory Only, Ang Db Test [facility] 1.2.8 40.114 [id number] Univers 18:00:00 18:15:00 Only Toño [facility] 350.1.13.10 ity of [place] 4.2.7.2.686 Tim as VICENTA?BLEA [id number] [address] MEDICAL OFFICE BUILDING 2021-07-11 2021-07-11 Outpatient R TOÑO [facility] [id number] Univers 18:00:00 18:00:00 SI[facility] 2021-07-05 2021-07-05 (TEL) STLMLC STLMLC [id number] Co mmon 00:00:00 00:00:00 Spirit [facility] 2021-07-04 2021-07-04 (ESTPT) STLMLC STLMLC [id number] Co mmon 00:00:00 00:00:00 Karen snell Patient - [facility] 2021-06-07 2021-06-07 Emergency X [facility] ERT [id number] Univers 15:54:00 18:34:00 SIDNEY [facility] 2021-06-07 2021-06-07 [facility] [id number] [id number] Univers 15:54:00 18:34:00 Sidney DURAN 350.1.13.10 i ty [facility] 4.2.7.2.686 [facility] [id number] [address] 2021-04-25 2021-04-25 (TEL) STLMLC STLMLC [id number] Co mmon 00:00:00 00:00:00 Spirit [facility] 2021-04-11 2021-04-11 (ESTPT) STLMLC STLMLC [id number] Co mmon 00:00:00 00:00:00 Establishe Spi rit d Patient - [facility] 2021-02-21 2021-02-21 (TEL) [facility] [id number] Co mmon 00:00:00 00:00:00 Spirit - [facility] 2021-01-31 2021-01-31 (ESTPT) STLMLC STLC [id number] Co mmon 00:00:00 00:00:00 Establishe Spi rit d Patient - [facility] 2021-01-03 2021-01-03 OFFICE [facility] [id number] Co mmon 00:00:00 00:00:00 VISIT NEW Spir it PT LEVEL 3 - [facility] 2020-11-20 2020-11-20 Emergency [facility] 1.2.840.114 [id number] [facility] 18:22:00 22:21:00 Brittany Duran 350.1.13.10 [facility] 4.2.7.2.686 [facility] [id number] [address] 2020-11-20 2020-11-20 Emergency [facility] 1.2.840.114 [id number] 18:22:00 22:21:00 Brittany Duran 350.1.13.10 [place] 4.2.7.2.686 [place] [id number] [facility] 2020-11-20 2020-11-20 Emergency X [facility] ERT [id number] Univers 18:22:00 18:22:00 BRITTANY ity [facility] 2019-03-02 2019-03-04 Phone nullFlavo MNA [id number] Memoria 16:11:26 04:59:59 Message r Neurosurger 08 l y [facility] 2019-03-02 2019-03-04 Phone nullFlavo MNA [id number] Memoria 16:11:26 04:59:59 Message r Neurosurger 08 l y [facility] 2019-03-02 2019-03-03 [id number] 11:11:26 23:59:59 2019-02-10 2019-02-12 Phone nullFlavo MNA [id number] 55 Memoria 16:16:47 04:59:59 Message r Neurosurger 07 l y [facility] 2019-02-10 2019-02-12 Phone nullFlavo MNA [id number] Memoria 16:16:47 04:59:59 Message r Neurosurger 07 l y [facility] 2019-02-10 2019-02-11 [id number] 11:16:47 23:59:59 2019-01-26 2019-01-28 Phone nullFlavo MNA [id number] Memoria 15:52:03 04:59:59 Message r Neurosurger 06 l y [facility] 2019-01-26 2019-01-28 Phone nullFlavo MNA [id number] 55 Memoria 15:52:03 04:59:59 Message r Neurosurger 06 l y [facility] 2019-01-26 2019-01-27 [facility] [id number] 10:52:03 23:59:59 2019-01-01 2019-01-03 Phone nullFlavo MNA [id number] Memoria 18:55:03 04:59:59 Message r Neurosurger 05 l y [facility] 2019-01-01 2019-01-03 Phone nullFlavo MNA [id number] Memoria 18:55:03 04:59:59 Message r Neurosurger 05 l y [facility] 2019-01-01 2019-01-02 [facility] [id number] 13:55:03 23:59:59 2018-05-22 2018-05-22 Emergency [facility]Flavo [facility] [id number] Memoria 10:12:00 18:24:[address] 2018-05-22 2018-05-22 Emergency nullFlavo [facility] [id number] Memoria 10:12:00 18:24:[address] 2018-05-22 2018-05-22 Outpatient [facility] [id number] 04:12:00 12:24:00 Zahra Ca 2018-02-18 2018-02-18 Out[facility] [id number] Common 11:15:00 11:15:[address] [facility] 2018-01-27 2018-01-27 Out[facility] [id number] Common 11:30:00 11:30:[address] [facility] 2018-01-03 2018-01-03 Out[facility] 14 [id number] Common 15:41:00 15:41:[address] [facility] 2017-12-23 2017-12-23 Outpatient [facility] 14 [id number] Common 15:42:00 15:42:[address] [facility] 2017-12-17 2017-12-17 Out[facility] 13 [id number] Common 11:00:00 11:00:[address] [facility] 2017-11-14 2017-11-19 Inpatient [facility] [id number] Memoria 22:40:00 17:28:[address] 2017-11-14 2017-11-19 Inpatient [facility] [id number] Memoria 22:40:00 17:28:[address] 2017-11-14 2017-11-19 Outpatient Ruth Quesada [facility] [id number] 17:40:00 12:28:00 Percy 23 Results Test Description Test Time Test Comments Results Result Comments Source POCT GLUCOSE (AUTOMATED) 2022-05-21 23:04:10 Test Item Value Reference Range Interpretation Comme nts POCT GLU (test code = 2579898937) 142 mg/dL 70-110 H Lab Interpretation (test code = 77899-8) Abnormal [facility] GLUCOSE (AUTOMATED)2022-05-21 18:07:54 Test Item Value Reference Range Interpretation Comments POCT GLU (test code = 2553797818) 198 mg/dL 70-110 H Lab Interpretation (test code = Abnormal 41131-1) [facility] GLUCOSE (AUTOMATED)2022-05-21 13:54:10 Test Item Value Reference Range Interpretation Comments POCT GLU (test code = 2835634229) 141 mg/dL 70-110 H Lab Interpretation (test code = Abnormal 24562-0) [facility] 02:47:37 Test Item Value Reference Range Interpretation Comments POCT GLU (test code = 8497082868) 150 mg/dL 70-110 H Lab Interpretation (test code = Abnormal 45837-8) [facility] (17234)2022-05-20 23:49:17 Test Item Value Reference Range Interpretation Comments NA (test code = 139 mmol/L 135-145 0883074965) K (test code = 4.5 mmol/L 3.5-5.0 0057459355) CL (test code = 104 mmol/L 98-108 2045191557) CO2 TOTAL (test code = 25 mmol/L 23-31 6485988516) AGAP (test code = 2-16 7630602006) BUN (test code = 13 mg/dL 7-23 4885984295) GLUCOSE (test code = 228 mg/dL 70-110 H 5624216592) CREATININE (test code = 0.56 mg/dL 0.60-1.25 L 1542374513) TOTAL BILI (test code = 0.6 mg/dL 0.1-1.7 4543550746) CALCIUM (test code = 9.7 mg/dL 8.6-10.6 4742390855) T PROTEIN (test code = 7.8 g/dL 6.3-8.2 8968241739) ALBUMIN (test code = 4.4 g/dL 3.5-5.0 5963945713) ALK PHOS (test code = 132 U/L 34-122 H 1720208270) ALTv (test code = 31 U/L 5-50 1742-6) AST(SGOT) (test code = 20 U/L 13-40 6995666286) eGFR (test code = mL/min/1.73m2 3816657512) ARPITA (test code = ARPITA) Association of [...] tests). Lab Interpretation Abnormal (test code = 61298-6) [facility] WITH [id number] 23:45:35 Test Item Value Reference Range Interpretation Comments WBC (test code = See_Comment [Automated 1492-2) message] The sy stem which generated this result transmitted reference range : 4.20 - 10.70 10*3/?L. The reference range was not used to interpret this result as normal/abnormal . RBC (test code = See_Comment H [Automated 719-8) message] The sy stem which generated this result transmitted reference range : 4.26 - 5.52 10*6/?L. The reference range was not used to interpret this result as normal/abnormal . HGB (test code = 16.4 g/dL 12.2-16.4 718-7) HCT (test code = 49.3 % 38.4-49.3 4544-3) MCV (test code = 83.6 fL 81.7-95.6 787-2) MCH (test code = 27.8 pg 26.1-32.7 785-6) MCHC (test code = 33.3 g/dL 31.2-35.0 786-4) RDW-SD (test code = 45.1 fL 38.5-51.6 08444-4) RDW-CV (test code = 14.9 % 12.1-15.4 788-0) PLT (test code = See_Comment [Automated 777-3) message] The sy stem which generated this result transmitted reference range : 150 - 328 10*3/ ?L. The reference r boubacar was not used to interpret this result as normal/abnormal . MPV (test code = 10.9 fL 9.8-13.0 04275-7) IPF % (test code = 9.9 % 1.2-10.7 Platelet count 7013922746) measured by fluorescence method. NRBC/100 WBC (test See_Comment [Automat ed code = 9773743636) message] The system which generated this result transmitted reference range : 0.0 - 10.0 /100 WBCs. The refer ence range was not u sed to interpret th is result as normal/abnormal . NRBC x10^3 (test code See_Comment [Auto mated = 4462245705) message] The s ystem which generated this result transmitted reference range : 10*3/?L. The reference range was not used to interpret this result as normal/abnormal . GRAN MAT (NEUT) % 65.4 % (test code = 770-8) IMM GRAN % (test code 0.60 % = 6264827422) LYMPH % (test code = 23.1 % 736-9) MONO % (test code = 7.9 % 5905-5) EOS % (test code = 2.6 % 713-8) BASO % (test code = 0.4 % 706-2) GRAN MAT x10^3(ANC) 6.34 10*3/uL 1.99-6.95 (test code = 8739723312) IMM GRAN x10^3 (test 0.06 10*3/uL 0.00-0.06 code = 0006234604) LYMPH x10^3 (test code 2.24 10*3/uL 1.09-3.23 = 731-0) MONO x10^3 (test code 0.77 10*3/uL 0.36-1.02 = 742-7) EOS x10^3 (test code = 0.25 10*3/uL 0.06-0.53 711-2) BASO x10^3 (test code 0.04 10*3/uL 0.01-0.09 = 704-7) Lab Interpretation Abnormal (test code = 54877-6) [facility] [id number] 23:16:59 Test Item Value Reference Range Interpretation Comments LACTIC ACID (test code = 3.00 mmol/L 0.50-2.20 H 7053339992) Lab Interpretation (test code = Abnormal 10806-6) [facility] WITH [id number] 01:28:46 Test Item Value Reference Range Interpretation Comments [...] as normal/abnormal . HGB (test code = 17.4 g/dL 12.2-16.4 H 718-7) HCT (test code = 52.0 % 38.4-49.3 H 4544-3) MCV (test code = 85.5 fL 81.7-95.6 787-2) MCH (test code = 28.6 pg 26.1-32.7 785-6) MCHC (test code = 33.5 g/dL 31.2-35.0 786-4) RDW-SD (test code = 47.6 fL 38.5-51.6 94621-2) RDW-CV (test code = 15.4 % 12.1-15.4 788-0) PLT (test code = See_Comment L [Automated 777-3) message] The sy stem which generated this result transmitted reference range : 150 - 328 10*3/ ?L. The reference r boubacar was not used to interpret this result as normal/abnormal . MPV (test code = 10.6 fL 9.8-13.0 56520-3) NRBC/100 WBC (test See_Comment [Automat ed code = 7187328547) message] The system which generated this result transmitted reference range : 0.0 - 10.0 /100 WBCs. The refer ence range was not u sed to interpret th is result as normal/abnormal . NRBC x10^3 (test code See_Comment [Auto mated = 5880997995) message] The s ystem which generated this result transmitted reference range : 10*3/?L. The reference range was not used to interpret this result as normal/abnormal . GRAN MAT (NEUT) % 70.8 % (test code = 770-8) IMM GRAN % (test code 0.50 % = 3690016370) LYMPH % (test code = 20.4 % 736-9) MONO % (test code = 5.9 % 5905-5) EOS % (test code = 2.0 % 713-8) BASO % (test code = 0.4 % 706-2) GRAN MAT x10^3(ANC) 7.23 10*3/uL 1.99-6.95 H (test code = 3243548336) IMM GRAN x10^3 (test 0.05 10*3/uL 0.00-0.06 code = 6294461428) LYMPH x10^3 (test code 2.08 10*3/uL 1.09-3.23 = 731-0) MONO x10^3 (test code 0.60 10*3/uL 0.36-1.02 = 742-7) EOS x10^3 (test code = 0.20 10*3/uL 0.06-0.53 711-2) BASO x10^3 (test code 0.04 10*3/uL 0.01-0.09 = 704-7) Lab Interpretation Abnormal (test code = 67964-9) [facility]. METABOLIC PANEL ([id number])2022-05-13 01:23:44 Test Item Value Reference Range Interpretation Comments NA (test code = 141 mmol/L 135-145 1475178560) K (test code = 4.7 mmol/L 3.5-5.0 4239731497) CL (test code = 107 mmol/L 98-108 1222872494) CO2 TOTAL (test code = 23 mmol/L 23-31 1688810652) AGAP (test code = 2-16 8742516984) BUN (test code = 16 mg/dL 7-23 8975203755) GLUCOSE (test code = 144 mg/dL 70-110 H 6067304306) CREATININE (test code = 0.54 mg/dL 0.60-1.25 L 1945997629) TOTAL BILI (test code = 0.6 mg/dL 0.1-1.8 4101235411) CALCIUM (test code = 9.5 mg/dL 8.6-10.6 5665078761) T PROTEIN (test code = 7.7 g/dL 6.3-8.2 2468898027) ALBUMIN (test code = 4.4 g/dL 3.5-5.0 4980596592) ALK PHOS (test code = 101 U/L 34-122 6394218398) ALTv (test code = 28 U/L 5-50 2-6) AST(SGOT) (test code = 20 U/L 13-40 3427254106) eGFR (test code = mL/min/1.73m2 3387019469) ARPITA (test code = ARPITA) Association of [...] tests). Lab Interpretation Abnormal (test code = 08387-1) [facility]:23:23 Test Item Value Reference Range Interpretation Comments LIPASE (test code = 7942083675) 99 U/L 0-220 Lab Interpretation (test code = Normal 27741-1) [facility] GLUCOSE (AUTOMATED)2022-05-06 13:16:26 Test Item Value Reference Range Interpretation Comments POCT GLU (test code = 1004661201) 162 mg/dL 70-110 H Lab Interpretation (test code = Abnormal 86729-3) [facility] GLUCOSE (AUTOMATED)2022-05-06 01:23:12 Test Item Value Reference Range Interpretation Comments POCT GLU (test code = 9720413733) 248 mg/dL 70-110 H Lab Interpretation (test code = Abnormal 73909-8) [facility] GLUCOSE (AUTOMATED)2022-05-05 21:32:18 Test Item Value Reference Range Interpretation Comments POCT GLU (test code = 7053694219) 239 mg/dL 70-110 H Lab Interpretation (test code = Abnormal 83769-5) [facility] GLUCOSE (AUTOMATED)2022-05-05 01:49:48 Test Item Value Reference Range Interpretation Comments POCT GLU (test code = 3977032892) 317 mg/dL 70-110 H Lab Interpretation (test code = Abnormal 76890-6) [facility] GLUCOSE (AUTOMATED)2022-05-04 21:38:03 Test Item Value Reference Range Interpretation Comments POCT GLU (test code = 0004440452) 139 mg/dL 70-110 H Lab Interpretation (test code = Abnormal 85584-1) [facility] GLUCOSE (AUTOMATED)2022-05-04 16:14:31 Test Item Value Reference Range Interpretation Comments POCT GLU (test code = 0841392031) 164 mg/dL 70-110 H Lab Interpretation (test code = Abnormal 56447-5) [facility]2022-05-04 12:46:40 Test Item Value Reference Range Interpretation Comments POCT GLU (test code = 9472609902) 154 mg/dL 70-110 H Lab Interpretation (test code = Abnormal 43945-4) [facility] 06:39:52 Test Item Value Reference Range Interpretation Comments LIPASE (test code = 1632948990) 216 U/L 0-220 Lab Interpretation (test code = Normal 56971-9) [facility]OL[facility] (62778)2022-05-04 06:39:52 Test Item Value Reference Range Interpretation Comments NA (test code = 139 mmol/L 135-145 6678049138) K (test code = 4.7 mmol/L 3.5-5 6840130575) CL (test code = 106 mmol/L 98-108 4324928920) CO2 TOTAL (test code = 20 mmol/L 23-31 L 2889805167) AGAP (test code = 2-16 6000540698) BUN (test code = 16 mg/dL 7-23 4952285938) GLUCOSE (test code = 224 mg/dL 70-110 H 7022136641) CREATININE (test code = 0.72 mg/dL 0.6-1.25 7878678150) TOTAL BILI (test code = 0.4 mg/dL 0.1-1.1 4047126892) CALCIUM (test code = 9.3 mg/dL 8.6-10.6 8630364775) T PROTEIN (test code = 7.2 g/dL 6.3-8.2 3792263811) ALBUMIN (test code = 4.1 g/dL 3.5-5 9091069009) ALK PHOS (test code = 118 U/L 34-122 6907163376) ALTv (test code = 46 U/L 5-50 1742-6) AST(SGOT) (test code = 18 U/L 13-40 1391372289) eGFR (test code = mL/min/1.73m2 7050639513) ARPITA (test code = ARPITA) Association of [...] tests). Lab Interpretation Abnormal (test code = 94152-5) [facility] WITH [id number] 06:28:46 Test Item Value Reference Range Interpretation Comments WBC (test code = See_Comment [Automated 8304-2) message] The sy stem which generated this result transmitted reference range : 4.20 - 10.70 10*3/?L. The reference range was not used to interpret this result as normal/abnormal . RBC (test code = See_Comment [Automated 804-5) message] The sy stem which generated this result transmitted reference range : 4.26 - 5.52 10*6/?L. The reference range was not used to interpret this result as normal/abnormal . HGB (test code = 15.6 g/dL 12.2-16.4 718-7) HCT (test code = 46.3 % 38.4-49.3 4544-3) MCV (test code = 84.6 fL 81.7-95.6 787-2) MCH (test code = 28.5 pg 26.1-32.7 785-6) MCHC (test code = 33.7 g/dL 31.2-35 786-4) RDW-SD (test code = 45.7 fL 38.5-51.6 90867-4) RDW-CV (test code = 14.8 % 12.1-15.4 788-0) PLT (test code = See_Comment H [Automated 777-3) message] The sy stem which generated this result transmitted reference range : 150 - 328 10*3/ ?L. The reference r boubacar was not used to interpret this result as normal/abnormal . MPV (test code = 11.0 fL 9.8-13 69577-1) NRBC/100 WBC (test See_Comment [Automat ed code = 5297691976) message] The system which generated this result transmitted reference range : 0.0 - 10.0 /100 WBCs. The refer ence range was not u sed to interpret th is result as normal/abnormal . NRBC x10^3 (test code See_Comment [Auto mated = 4991759346) message] The s ystem which generated this result transmitted reference range : 10*3/?L. The reference range was not used to interpret this result as normal/abnormal . GRAN MAT (NEUT) % 56.7 % (test code = 770-8) IMM GRAN % (test code 0.70 % = 6903283307) LYMPH % (test code = 31.5 % 736-9) MONO % (test code = 8.6 % 5905-5) EOS % (test code = 2.0 % 713-8) BASO % (test code = 0.5 % 706-2) GRAN MAT x10^3(ANC) 4.84 10*3/uL 1.99-6.95 (test code = 5948824900) IMM GRAN x10^3 (test 0.06 10*3/uL 0-0.06 code = 5642555331) LYMPH x10^3 (test code 2.69 10*3/uL 1.09-3.23 = 731-0) MONO x10^3 (test code 0.73 10*3/uL 0.36-1.02 = 742-7) EOS x10^3 (test code = 0.17 10*3/uL 0.06-0.53 711-2) BASO x10^3 (test code 0.04 10*3/uL 0.01-0.09 = 704-7) Lab Interpretation Abnormal (test code = 20032-4) [facility] CULTURE(AEROBIC/ANAEROBIC)2022-02-23 20:34:19 Test Item Value Reference Range Interpretation Comments TISSUE CULTURE (test No aerobic/anaerobic code = 45636-2) organisms isolated Gram stain (test code No PMNs or Mononuclear = 664-3) cells observed [facility] GLUCOSE (AUTOMATED)2022-02-23 18:36:41 Test Item Value Reference Range Interpretation Comments POCT GLU (test code = 4780041318) 162 mg/dL 70-110 H Lab Interpretation (test code = Abnormal 21360-4) [facility] GLUCOSE (AUTOMATED)2022-02-23 14:48:29 Test Item Value Reference Range Interpretation Comments POCT GLU (test code = 8508969022) 191 mg/dL 70-110 H Lab Interpretation (test code = Abnormal 21089-0) [facility] GLUCOSE (AUTOMATED)2022-02-23 10:56:47 Test Item Value Reference Range Interpretation Comments POCT GLU (test code = 3908845427) 242 mg/dL 70-110 H Lab Interpretation (test code = Abnormal 74136-4) [facility] GLUCOSE (AUTOMATED)2022-02-23 05:47:30 Test Item Value Reference Range Interpretation Comments POCT GLU (test code = 4952485762) 327 mg/dL 70-110 H Lab Interpretation (test code = Abnormal 90475-3) [facility] GLUCOSE (AUTOMATED)2022-02-23 02:18:34 Test Item Value Reference Range Interpretation Comments POCT GLU (test code = 7449160793) 309 mg/dL 70-110 H Lab Interpretation (test code = Abnormal 71551-6) [facility] GLUCOSE (AUTOMATED)2022-02-22 23:17:38 Test Item Value Reference Range Interpretation Comments POCT GLU (test code = 8104697682) 260 mg/dL 70-110 H Lab Interpretation (test code = Abnormal 41766-9) [facility] GLUCOSE (AUTOMATED)2022-02-22 18:33:41 Test Item Value Reference Range Interpretation Comments POCT GLU (test code = 8841213558) 264 mg/dL 70-110 H Lab Interpretation (test code = Abnormal 55231-1) [facility] GLUCOSE (AUTOMATED)2022-02-22 15:02:50 Test Item Value Reference Range Interpretation Comments POCT GLU (test code = 9498427448) 219 mg/dL 70-110 H Lab Interpretation (test code = Abnormal 37681-5) [facility] METABOLIC PANEL (NA, K, CL, CO2, GLUCOSE, BUN, CREATININE, CA)2022-02-22 10:44:27 Test Item Value Reference Range Interpretation Comments NA (test code = 132 mmol/L 135-145 L 5106085326) K (test code = 4.4 mmol/L 3.5-5 5551462077) CL (test code = 103 mmol/L 98-108 5530424454) CO2 TOTAL (test code = 25 mmol/L 23-31 5563776672) AGAP (test code = 2-16 6929215955) BUN (test code = 15 mg/dL 7-23 7140766888) GLUCOSE (test code = 262 mg/dL 70-110 H 8389624533) CREATININE (test code = 0.52 mg/dL 0.6-1.25 L 3240081724) CALCIUM (test code = 8.3 mg/dL 8.6-10.6 L 0942198339) eGFR (test code = mL/min/1.73m2 4009692824) ARPITA (test code = ARPITA) Association of [...] tests). Lab Interpretation Abnormal (test code = 32938-9) [facility] WITH [id number] 10:22:05 Test Item Value Reference Range Interpretation [...] RDW-SD (test code = 49.8 fL 38.5-51.6 34996-6) RDW-CV (test code = 15.9 % 12.1-15.4 H 788-0) PLT (test code = See_Comment H [Automated 777-3) message] The sy stem which generated this result transmitted reference range : 150 - 328 10*3/ ?L. The reference r boubacar was not used to interpret this result as normal/abnormal . MPV (test code = 10.4 fL 9.8-13 64246-9) NRBC/100 WBC (test See_Comment [Automat ed code = 3345238693) message] The system which generated this result transmitted reference range : 0.0 - 10.0 /100 WBCs. The refer ence range was not u sed to interpret th is result as normal/abnormal . NRBC x10^3 (test code See_Comment [Auto mated = 0482141863) message] The s ystem which generated this result transmitted reference range : 10*3/?L. The reference range was not used to interpret this result as normal/abnormal . GRAN MAT (NEUT) % 59.8 % (test code = 770-8) IMM GRAN % (test code 1.20 % = 5149858296) LYMPH % (test code = 28.2 % 736-9) MONO % (test code = 8.4 % 5905-5) EOS % (test code = 2.2 % 713-8) BASO % (test code = 0.2 % 706-2) GRAN MAT x10^3(ANC) 5.34 10*3/uL 1.99-6.95 (test code = 3263909650) IMM GRAN x10^3 (test 0.11 10*3/uL 0-0.06 H code = 8100608840) LYMPH x10^3 (test code 2.52 10*3/uL 1.09-3.23 = 731-0) MONO x10^3 (test code 0.75 10*3/uL 0.36-1.02 = 742-7) EOS x10^3 (test code = 0.20 10*3/uL 0.06-0.53 711-2) BASO x10^3 (test code 0.01-0.09 = 704-7) Lab Interpretation Abnormal (test code = 74033-9) [facility] GLUCOSE (AUTOMATED)2022-02-22 02:20:10 Test Item Value Reference Range Interpretation Comments POCT GLU (test code = 6011436573) 281 mg/dL 70-110 H Lab Interpretation (test code = Abnormal 03789-0) [facility] GLUCOSE (AUTOMATED)2022-02-21 22:27:37 Test Item Value Reference Range Interpretation Comments POCT GLU (test code = 4175755007) 187 mg/dL 70-110 H Lab Interpretation (test code = Abnormal 15990-0) [facility] GLUCOSE (AUTOMATED)2022-02-21 19:00:16 Test Item Value Reference Range Interpretation Comments POCT GLU (test code = 0081853057) 167 mg/dL 70-110 H Lab Interpretation (test code = Abnormal 22821-4) [facility] GLUCOSE (AUTOMATED)2022-02-21 19:00:16 Test Item Value Reference Range Interpretation Comments POCT GLU (test code = [id number]) 167 mg/dL 70-110 H Lab Interpretation (test code = Abnormal 29860-3) [facility] GLUCOSE (AUTOMATED)2022-02-21 15:22:04 Test Item Value Reference Range Interpretation Comments POCT GLU (test code = 2900431870) 138 mg/dL 70-110 H Lab Interpretation (test code = Abnormal 01953-1) [facility] GLUCOSE (AUTOMATED)2022-02-21 15:22:04 Test Item Value Reference Range Interpretation Comments POCT GLU (test code = [id number]) 138 mg/dL 70-110 H Lab Interpretation (test code = Abnormal 32425-8) [facility] GLUCOSE (AUTOMATED)2022-02-21 02:45:31 Test Item Value Reference Range Interpretation Comments POCT GLU (test code = 1045439640) 142 mg/dL 70-110 H Lab Interpretation (test code = Abnormal 85274-3) [facility] GLUCOSE (AUTOMATED)2022-02-21 02:45:31 Test Item Value Reference Range Interpretation Comments POCT GLU (test code = 4677838103) 142 mg/dL 70-110 H Lab Interpretation (test code = Abnormal 63608-0) [facility] GLUCOSE (AUTOMATED)2022-02-20 22:04:41 Test Item Value Reference Range Interpretation Comments POCT GLU (test code = 6835356031) 260 mg/dL 70-110 H Lab Interpretation (test code = Abnormal 40960-4) [facility] GLUCOSE (AUTOMATED)2022-02-20 22:04:41 Test Item Value Reference Range Interpretation Comments POCT GLU (test code = 4219648264) 260 mg/dL 70-110 H Lab Interpretation (test code = Abnormal 28853-6) [facility] Culture - Peripheral Vein # 21:01:35 Test Item Value Reference Range Interpretation Comments Blood Culture-Aerobic No organisms No growth Previo us (test code = 74138-7) isolated prelim inary verified result was Culture [...] Culture-Anaerobic isolated preliminar y (test code = 12747-4) verifi ed result was Culture In Progress [...] CDT Lab Interpretation Normal (test code = 08680-8) [facility] Culture - Peripheral [id number] 21:01:35 Test Item Value Reference Range Interpretation Comments Blood Culture-Aerobic No organisms No growth Previo us (test code = 39725-5) isolated prelim inary verified result was Culture [...] Culture-Anaerobic isolated preliminar y (test code = 68336-7) verifi ed result was Culture In Progress [...] CDT Lab Interpretation Normal (test code = 75395-0) [facility] Culture - Peripheral Vein # 21:01:35 Test Item Value Reference Range Interpretation Comments Blood Culture-Aerobic No organisms No growth Previo us (test code = 60333-5) isolated prelim inary verified result was Culture [...] Culture-Anaerobic isolated preliminar y (test code = 92863-2) verifi ed result was Culture In Progress [...] CDT Lab Interpretation Normal (test code = 66701-4) [facility] Culture - Peripheral [id number] 21:01:35 Test Item Value Reference Range Interpretation Comments Blood Culture-Aerobic No organisms No growth Previo us (test code = 55202-6) isolated prelim inary verified result was Culture [...] Culture-Anaerobic isolated preliminar y (test code = 63481-8) verifi ed result was Culture In Progress [...] CDT Lab Interpretation Normal (test code = 01296-6) [facility] GLUCOSE (AUTOMATED)2022-02-20 14:13:49 Test Item Value Reference Range Interpretation Comments POCT GLU (test code = 6085174447) 176 mg/dL 70-110 H Lab Interpretation (test code = Abnormal 89510-5) [facility] GLUCOSE (AUTOMATED)2022-02-20 14:13:49 Test Item Value Reference Range Interpretation Comments POCT GLU (test code = 9066902849) 176 mg/dL 70-110 H Lab Interpretation (test code = Abnormal 36647-0) [facility] GLUCOSE (AUTOMATED)2022-02-20 02:30:54 Test Item Value Reference Range Interpretation Comments POCT GLU (test code = 9084510191) 113 mg/dL 70-110 H Lab Interpretation (test code = Abnormal 76643-3) [facility] GLUCOSE (AUTOMATED)2022-02-20 02:30:54 Test Item Value Reference Range Interpretation Comments POCT GLU (test code = 0833757451) 113 mg/dL 70-110 H Lab Interpretation (test code = Abnormal 24191-7) [facility] GLUCOSE (AUTOMATED)2022-02-19 23:41:12 Test Item Value Reference Range Interpretation Comments POCT GLU (test code = 1465185916) 135 mg/dL 70-110 H Lab Interpretation (test code = Abnormal 97601-2) [facility] GLUCOSE (AUTOMATED)2022-02-19 23:41:12 Test Item Value Reference Range Interpretation Comments POCT GLU (test code = 1503360000) 135 mg/dL 70-110 H Lab Interpretation (test code = Abnormal 50618-1) [facility] GLUCOSE (AUTOMATED)2022-02-19 17:13:18 Test Item Value Reference Range Interpretation Comments POCT GLU (test code = 5959903484) 238 mg/dL 70-110 H Lab Interpretation (test code = Abnormal 73644-9) [facility] GLUCOSE (AUTOMATED)2022-02-19 17:13:18 Test Item Value Reference Range Interpretation Comments POCT GLU (test code = 2646608277) 238 mg/dL 70-110 H Lab Interpretation (test code = Abnormal 48019-5) [facility] GLUCOSE (AUTOMATED)2022-02-19 17:13:18 Test Item Value Reference Range Interpretation Comments POCT GLU (test code = 9275713286) 238 mg/dL 70-110 H Lab Interpretation (test code = Abnormal 47380-7) [facility]-REACTIVE [id number] 16:50:53 Test Item Value Reference Range Interpretation Comments CRP (test code = 0.9 mg/dL See_Comment H [Automated message] 0292672180) The system [employer] generated this result transmit lester reference range : <=0.8. The refe rence range was not u sed to interpret th is result as normal/abnormal . Lab Interpretation (test Abnormal code = 14551-5) [facility]-REACTIVE [id number] 16:50:53 Test Item Value Reference Range Interpretation Comments CRP (test code = 0.9 mg/dL See_Comment H [Automated message] 7448004584) The system [employer] generated this result transmit lester reference range : <=0.8. The refe rence range was not u sed to interpret th is result as normal/abnormal . Lab Interpretation (test Abnormal code = 26692-3) [facility]-REACTIVE [id number] 16:50:53 Test Item Value Reference Range Interpretation Comments CRP (test code = 0.9 mg/dL See_Comment H [Automated message] 0824399334) The system [employer] generated this result transmit lester reference range : <=0.8. The refe rence range was not u sed to interpret th is result as normal/abnormal . Lab Interpretation (test Abnormal code = 12924-4) [facility] GLUCOSE (AUTOMATED)2022-02-19 15:55:49 Test Item Value Reference Range Interpretation Comments POCT GLU (test code = 8588626051) 209 mg/dL 70-110 H Lab Interpretation (test code = Abnormal 93445-2) [facility] GLUCOSE (AUTOMATED)2022-02-19 15:55:49 Test Item Value Reference Range Interpretation Comments POCT GLU (test code = 4749878217) 209 mg/dL 70-110 H Lab Interpretation (test code = Abnormal 69397-4) [facility] GLUCOSE (AUTOMATED)2022-02-19 00:58:44 Test Item Value Reference Range Interpretation Comments POCT GLU (test code = 2294903082) 300 mg/dL 70-110 H Lab Interpretation (test code = Abnormal 35409-9) [facility] GLUCOSE (AUTOMATED)2022-02-19 00:58:44 Test Item Value Reference Range Interpretation Comments POCT GLU (test code = 8475226832) 300 mg/dL 70-110 H Lab Interpretation (test code = Abnormal 68133-8) [facility] GLUCOSE (AUTOMATED)2022-02-18 21:28:03 Test Item Value Reference Range Interpretation Comments POCT GLU (test code = 4745165482) 119 mg/dL 70-110 H Lab Interpretation (test code = Abnormal 11187-9) [facility] GLUCOSE (AUTOMATED)2022-02-18 21:28:03 Test Item Value Reference Range Interpretation Comments POCT GLU (test code = 6778133956) 119 mg/dL 70-110 H Lab Interpretation (test code = Abnormal 10825-0) [facility] GLUCOSE (AUTOMATED)2022-02-18 16:51:05 Test Item Value Reference Range Interpretation Comments POCT GLU (test code = 4741853714) 275 mg/dL 70-110 H Lab Interpretation (test code = Abnormal 25087-3) [facility] GLUCOSE (AUTOMATED)2022-02-18 16:51:05 Test Item Value Reference Range Interpretation Comments POCT GLU (test code = 6427953679) 275 mg/dL 70-110 H Lab Interpretation (test code = Abnormal 16033-3) [facility] METABOLIC PANEL (NA, K, CL, CO2, GLUCOSE, BUN, CREATININE, CA)2022-02-18 15:51:39 Test Item Value Reference Range Interpretation Comments NA (test code = 136 mmol/L 135-145 2149820580) K (test code = 3.7 mmol/L 3.5-5 6771740819) CL (test code = 111 mmol/L 98-108 H 7698003557) CO2 TOTAL (test code = 21 mmol/L 23-31 L 6442094417) AGAP (test code = 2-16 7725383558) BUN (test code = 9 mg/dL 7-23 5711848680) GLUCOSE (test code = 278 mg/dL 70-110 H 9310773298) CREATININE (test code = 0.46 mg/dL 0.6-1.25 L 4772700960) CALCIUM (test code = 8.2 mg/dL 8.6-10.6 L 1384013484) eGFR (test code = mL/min/1.73m2 2569339079) ARPITA (test code = ARPITA) Association of [...] tests). Lab Interpretation Abnormal (test code = 25461-2) [facility] METABOLIC PANEL (NA, K, CL, CO2, GLUCOSE, BUN, CREATININE, CA)2022-02-18 15:51:39 Test Item Value Reference Range Interpretation Comments NA (test code = 136 mmol/L 135-145 0800626832) K (test code = 3.7 mmol/L 3.5-5 7116402677) CL (test code = 111 mmol/L 98-108 H 8421987495) CO2 TOTAL (test code = 21 mmol/L 23-31 L 3324099541) AGAP (test code = 2-16 7609658512) BUN (test code = 9 mg/dL 7-23 7584799110) GLUCOSE (test code = 278 mg/dL 70-110 H 9266740459) CREATININE (test code = 0.46 mg/dL 0.6-1.25 L 4495143285) CALCIUM (test code = 8.2 mg/dL 8.6-10.6 L 9813325446) eGFR (test code = mL/min/1.73m2 7715877558) ARPITA (test code = ARPITA) Association of [...] tests). Lab Interpretation Abnormal (test code = 24060-5) [facility] GLUCOSE (AUTOMATED)2022-02-18 12:36:29 Test Item Value Reference Range Interpretation Comments POCT GLU (test code = 2693110294) 276 mg/dL 70-110 H Lab Interpretation (test code = Abnormal 07263-0) [facility] GLUCOSE (AUTOMATED)2022-02-18 12:36:29 Test Item Value Reference Range Interpretation Comments POCT GLU (test code = 1326377960) 276 mg/dL 70-110 H Lab Interpretation (test code = Abnormal 60693-7) [facility] GLUCOSE (AUTOMATED)2022-02-18 01:29:51 Test Item Value Reference Range Interpretation Comments POCT GLU (test code = 9783155086) 289 mg/dL 70-110 H Lab Interpretation (test code = Abnormal 89277-9) [facility] GLUCOSE (AUTOMATED)2022-02-18 01:29:51 Test Item Value Reference Range Interpretation Comments POCT GLU (test code = 4479935147) 289 mg/dL 70-110 H Lab Interpretation (test code = Abnormal 06115-7) [facility] GLUCOSE (AUTOMATED)2022-02-17 21:24:38 Test Item Value Reference Range Interpretation Comments POCT GLU (test code = 9206758310) 173 mg/dL 70-110 H Lab Interpretation (test code = Abnormal 43958-4) [facility] GLUCOSE (AUTOMATED)2022-02-17 21:24:38 Test Item Value Reference Range Interpretation Comments POCT GLU (test code = 5566757388) 173 mg/dL 70-110 H Lab Interpretation (test code = Abnormal 03630-1) [facility] GLUCOSE (AUTOMATED)2022-02-17 16:50:49 Test Item Value Reference Range Interpretation Comments POCT GLU (test code = 9819708460) 279 mg/dL 70-110 H Lab Interpretation (test code = Abnormal 45307-8[facility] 16:50:49 Test Item Value Reference Range Interpretation Comments POCT GLU (test code = 7069684295) 279 mg/dL 70-110 H Lab Interpretation (test code = Abnormal 42726-6) [facility] GLUCOSE (AUTOMATED)2022-02-17 13:31:23 Test Item Value Reference Range Interpretation Comments POCT GLU (test code = 2809786864) 281 mg/dL 70-110 H Lab Interpretation (test code = Abnormal 18705-5) [facility] GLUCOSE (AUTOMATED)2022-02-17 13:31:23 Test Item Value Reference Range Interpretation Comments POCT GLU (test code = 2523944858) 281 mg/dL 70-110 H Lab Interpretation (test code = Abnormal 51252-1) [facility] GLUCOSE (AUTOMATED)2022-02-17 10:02:35 Test Item Value Reference Range Interpretation Comments POCT GLU (test code = 4125093794) 339 mg/dL 70-110 H Lab Interpretation (test code = Abnormal 64069-3) [facility] 10:02:35 Test Item Value Reference Range Interpretation Comments POCT GLU (test code = 8881804849) 339 mg/dL 70-110 H Lab Interpretation (test code = Abnormal 93972-3) [facility] GLUCOSE (AUTOMATED)2022-02-17 06:33:22 Test Item Value Reference Range Interpretation Comments POCT GLU (test code = 9322164453) 295 mg/dL 70-110 H Lab Interpretation (test code = Abnormal 18926-1) [facility] 06:33:22 Test Item Value Reference Range Interpretation Comments POCT GLU (test code = 1477127121) 295 mg/dL 70-110 H Lab Interpretation (test code = Abnormal 51001-4) [facility] 01:54:18 Test Item Value Reference Range Interpretation Comments POCT GLU (test code = 7112784090) 258 mg/dL 70-110 H Lab Interpretation (test code = Abnormal 00459-7) [facility] GLUCOSE (AUTOMATED)2022-02-17 01:54:18 Test Item Value Reference Range Interpretation Comments POCT GLU (test code = 8796721680) 258 mg/dL 70-110 H Lab Interpretation (test code = Abnormal 66361-0) [facility] GLUCOSE (AUTOMATED)2022-02-16 23:03:09 Test Item Value Reference Range Interpretation Comments POCT GLU (test code = 2928100170) 286 mg/dL 70-110 H Lab Interpretation (test code = Abnormal 25009-1) [facility] GLUCOSE (AUTOMATED)2022-02-16 23:03:09 Test Item Value Reference Range Interpretation Comments POCT GLU (test code = 0930835978) 286 mg/dL 70-110 H Lab Interpretation (test code = Abnormal 66327-5) [facility] GLUCOSE (AUTOMATED)2022-02-16 20:48:08 Test Item Value Reference Range Interpretation Comments POCT GLU (test code = 0450260599) 249 mg/dL 70-110 H Lab Interpretation (test code = Abnormal 79150-8) [facility] GLUCOSE (AUTOMATED)2022-02-16 20:48:08 Test Item Value Reference Range Interpretation Comments POCT GLU (test code = 0695218753) 249 mg/dL 70-110 H Lab Interpretation (test code = Abnormal 30810-3) [facility] [id number] 17:01:47 Test Item Value Reference Range Interpretation Comments BOH (test code = 1.0 mmol/L 8115663826) ARPITA (test code = Normal Ranges: ? ? ARPITA) Nonfasting ? Less than 0.1 mmol/L ? ? Overnight Fast ? ? ? Less than 0.4 mmol/L ? ? Fasting (1-2 weeks) ?6-8 mmol/L Test developed and characteristics determined by [facility] Laboratory Services. [facility] [id number] 17:01:47 Test Item Value Reference Range Interpretation Comments BOH (test code = 1.0 mmol/L 6412844751) ARPITA (test code = Normal Ranges: ? ? ARPITA) Nonfasting ? Less than 0.1 mmol/L ? ? Overnight Fast ? ? ? Less than 0.4 mmol/L ? ? Fasting (1-2 weeks) ?6-8 mmol/L Test developed and characteristics determined by [facility] Laboratory Services. [facility] [id number] 17:01:47 Test Item Value Reference Range Interpretation Comments BOH (test code = 1.0 mmol/L 0800582310) ARPITA (test code = Normal Ranges: ? ? ARPITA) Nonfasting ? Less than 0.1 mmol/L ? ? Overnight Fast ? ? ? Less than 0.4 mmol/L ? ? Fasting (1-2 weeks) ?6-8 mmol/L Test developed and characteristics determined by [facility] Laboratory Services. [facility] GLUCOSE (AUTOMATED)2022-02-16 16:42:59 Test Item Value Reference Range Interpretation Comments POCT GLU (test code = 5152106606) 264 mg/dL 70-110 H Lab Interpretation (test code = Abnormal 32822-1) [facility] GLUCOSE (AUTOMATED)2022-02-16 16:42:59 Test Item Value Reference Range Interpretation Comments POCT GLU (test code = 8647899746) 264 mg/dL 70-110 H Lab Interpretation (test code = Abnormal 32346-4) [facility] (Na, K, Cl, CO2, Glucose, BUN, Creatinine, Ca)2022-02-16 16:16:20 Test Item Value Reference Range Interpretation Comments NA (test code = 137 mmol/L 135-145 6158905521) K (test code = 3.5 mmol/L 3.5-5 7114072996) CL (test code = 115 mmol/L 98-108 H 2484896182) CO2 TOTAL (test code = 17 mmol/L 23-31 L 0267049044) AGAP (test code = 2-16 6503978905) BUN (test code = 5 mg/dL 7-23 L 3379763103) GLUCOSE (test code = 271 mg/dL 70-110 H 0871764170) CREATININE (test code = 0.45 mg/dL 0.6-1.25 L 8033061693) CALCIUM (test code = 8.5 mg/dL 8.6-10.6 L 8445699085) eGFR (test code = mL/min/1.73m2 0758366907) ARPITA (test code = ARPITA) Association of [...] tests). Lab Interpretation Abnormal (test code = 93319-5) [facility] Metabolic Panel (Na, K, Cl, CO2, Glucose, BUN, Creatinine, Ca)2022-02-16 16:16:20 Test Item Value Reference Range Interpretation Comments NA (test code = 137 mmol/L 135-145 0569063962) K (test code = 3.5 mmol/L 3.5-5 3027226497) CL (test code = 115 mmol/L 98-108 H 8560089397) CO2 TOTAL (test code = 17 mmol/L 23-31 L 4748732290) AGAP (test code = 2-16 2151273580) BUN (test code = 5 mg/dL 7-23 L 6710727790) GLUCOSE (test code = 271 mg/dL 70-110 H 1684069381) CREATININE (test code = 0.45 mg/dL 0.6-1.25 L 7879651314) CALCIUM (test code = 8.5 mg/dL 8.6-10.6 L 1463163010) eGFR (test code = mL/min/1.73m2 8621252457) ARPITA (test code = ARPITA) Association of [...] tests). Lab Interpretation Abnormal (test code = 50750-4) [facility] GLUCOSE (AUTOMATED)2022-02-16 14:21:27 Test Item Value Reference Range Interpretation Comments POCT GLU (test code = 3523501603) 286 mg/dL 70-110 H Lab Interpretation (test code = Abnormal 63418-6) [facility] GLUCOSE (AUTOMATED)2022-02-16 14:21:27 Test Item Value Reference Range Interpretation Comments POCT GLU (test code = 8135593239) 286 mg/dL 70-110 H Lab Interpretation (test code = Abnormal 19859-7) [facility] POSITIVE BLOOD PATHOGENS DNA [id number] 13:29:25 Test Item Value Reference Range Interpretation Comments Coagulase Negative Positive Negative, See A Staphylococcus (test Comment/Narrative code = 03129-9) ARPITA (test code = ARPITA) Coagulase negative [...] contact the Antimicrobial Stewardship Program with questions.Pager: ?[phone] Testing included eleven identification and three resistance marker targets. Lab Interpretation Abnormal (test code = 02494-8) [facility] [id number] 13:29:25 Test Item Value Reference Range Interpretation Comments Coagulase Negative Positive Negative, See A Staphylococcus (test Comment/Narrative code = 50048-8) ARPITA (test code = ARPITA) Coagulase negative [...] contact the Antimicrobial Stewardship Program with questions.Pager: ?[phone] Testing included eleven identification and three resistance marker targets. Lab Interpretation Abnormal (test code = 77270-9) [facility] [id number] 13:29:25 Test Item Value Reference Range Interpretation Comments Coagulase Negative Positive Negative, See A Staphylococcus (test Comment/Narrative code = 30847-8) ARPITA (test code = ARPITA) Coagulase negative [...] contact the Antimicrobial Stewardship Program with questions.Pager: ?[phone] Testing included eleven identification and three resistance marker targets. Lab Interpretation Abnormal (test code = 99140-9) [facility] GLUCOSE (AUTOMATED)2022-02-16 13:03:22 Test Item Value Reference Range Interpretation Comments POCT GLU (test code = 4168630164) 307 mg/dL 70-110 H Lab Interpretation (test code = Abnormal 82671-2) [facility] GLUCOSE (AUTOMATED)2022-02-16 13:03:22 Test Item Value Reference Range Interpretation Comments POCT GLU (test code = 9998473291) 307 mg/dL 70-110 H Lab Interpretation (test code = Abnormal 05989-0) [facility] GLUCOSE (AUTOMATED)2022-02-16 09:05:19 Test Item Value Reference Range Interpretation Comments POCT GLU (test code = 3967820314) 326 mg/dL 70-110 H Lab Interpretation (test code = Abnormal 61912-8) [facility] GLUCOSE (AUTOMATED)2022-02-16 09:05:19 Test Item Value Reference Range Interpretation Comments POCT GLU (test code = 8978958327) 326 mg/dL 70-110 H Lab Interpretation (test code = Abnormal 27413-6) [facility] GLUCOSE (AUTOMATED)2022-02-16 05:46:58 Test Item Value Reference Range Interpretation Comments POCT GLU (test code = 5588461154) 341 mg/dL 70-110 H Lab Interpretation (test code = Abnormal 52838-4) [facility] GLUCOSE (AUTOMATED)2022-02-16 05:46:58 Test Item Value Reference Range Interpretation Comments POCT GLU (test code = 5241433978) 341 mg/dL 70-110 H Lab Interpretation (test code = Abnormal 09707-1) [facility] GLUCOSE (AUTOMATED)2022-02-16 01:37:20 Test Item Value Reference Range Interpretation Comments POCT GLU (test code = 2468888524) 196 mg/dL 70-110 H Lab Interpretation (test code = Abnormal 25388-5) [facility] GLUCOSE (AUTOMATED)2022-02-16 01:37:20 Test Item Value Reference Range Interpretation Comments POCT GLU (test code = 2368797299) 196 mg/dL 70-110 H Lab Interpretation (test code = Abnormal 91776-7) [facility] GLUCOSE (AUTOMATED)2022-02-15 23:44:41 Test Item Value Reference Range Interpretation Comments POCT GLU (test code = 1788368447) 138 mg/dL 70-110 H Lab Interpretation (test code = Abnormal 67957-4) [facility] GLUCOSE (AUTOMATED)2022-02-15 23:44:41 Test Item Value Reference Range Interpretation Comments POCT GLU (test code = 4727623551) 138 mg/dL 70-110 H Lab Interpretation (test code = Abnormal 85286-1) [facility] Metabolic Panel (Na, K, Cl, CO2, Glucose, BUN, Creatinine, Ca)2022-02-15 23:12:45 Test Item Value Reference Range Interpretation Comments NA (test code = 138 mmol/L 135-145 1734338555) K (test code = 3.7 mmol/L 3.5-5 5158737090) CL (test code = 115 mmol/L 98-108 H 3977861435) CO2 TOTAL (test code = 17 mmol/L 23-31 L 6559293024) AGAP (test code = 2-16 3236076465) BUN (test code = 5 mg/dL 7-23 L 8576355712) GLUCOSE (test code = 86 mg/dL 70-110 2608254916) CREATININE (test code = 0.46 mg/dL 0.6-1.25 L 0056561718) CALCIUM (test code = 8.4 mg/dL 8.6-10.6 L 2636047429) eGFR (test code = mL/min/1.73m2 8812519661) ARPITA (test code = ARPITA) Association of [...] tests). Lab Interpretation Abnormal (test code = 26923-2) [facility] Metabolic Panel (Na, K, Cl, CO2, Glucose, BUN, Creatinine, Ca)2022-02-15 23:12:45 Test Item Value Reference Range Interpretation Comments NA (test code = 138 mmol/L 135-145 5777365632) K (test code = 3.7 mmol/L 3.5-5 8521644445) CL (test code = 115 mmol/L 98-108 H 5848784107) CO2 TOTAL (test code = 17 mmol/L 23-31 L 8574019812) AGAP (test code = 2-16 8177975806) BUN (test code = 5 mg/dL 7-23 L 5917336117) GLUCOSE (test code = 86 mg/dL 70-110 2595817820) CREATININE (test code = 0.46 mg/dL 0.6-1.25 L 1424716912) CALCIUM (test code = 8.4 mg/dL 8.6-10.6 L 3916951216) eGFR (test code = mL/min/1.73m2 1040594893) ARPITA (test code = ARPITA) Association of [...] tests). Lab Interpretation Abnormal (test code = 70258-9) [facility] GLUCOSE (AUTOMATED)2022-02-15 22:38:52 Test Item Value Reference Range Interpretation Comments POCT GLU (test code = 3026455437) 94 mg/dL 70-110 Lab Interpretation (test code = Normal 68890-3) [facility] GLUCOSE (AUTOMATED)2022-02-15 22:38:52 Test Item Value Reference Range Interpretation Comments POCT GLU (test code = 4519357423) 94 mg/dL 70-110 Lab Interpretation (test code = Normal 25406-5) [facility] GLUCOSE (AUTOMATED)2022-02-15 21:31:35 Test Item Value Reference Range Interpretation Comments POCT GLU (test code = 3424915592) 119 mg/dL 70-110 H Lab Interpretation (test code = Abnormal 80710-8) [facility] GLUCOSE (AUTOMATED)2022-02-15 21:31:35 Test Item Value Reference Range Interpretation Comments POCT GLU (test code = 5206259244) 119 mg/dL 70-110 H Lab Interpretation (test code = Abnormal 41550-6) [facility] GLUCOSE (AUTOMATED)2022-02-15 20:06:03 Test Item Value Reference Range Interpretation Comments POCT GLU (test code = 8346723579) 177 mg/dL 70-110 H Lab Interpretation (test code = Abnormal 47966-5) [facility] GLUCOSE (AUTOMATED)2022-02-15 20:06:03 Test Item Value Reference Range Interpretation Comments POCT GLU (test code = 0608261120) 177 mg/dL 70-110 H Lab Interpretation (test code = Abnormal 34977-1) [facility] GLUCOSE (AUTOMATED)2022-02-15 19:07:20 Test Item Value Reference Range Interpretation Comments POCT GLU (test code = 7019454700) 185 mg/dL 70-110 H Lab Interpretation (test code = Abnormal 05083-3) [facility] 19:07:20 Test Item Value Reference Range Interpretation Comments POCT GLU (test code = 7674679587) 185 mg/dL 70-110 H Lab Interpretation (test code = Abnormal 28558-7) [facility] [id number] 18:44:53 Test Item Value Reference Interpretation Comments Range TROPONIN I (test 0.000 ng/mL See_Comment [Automated code = 4257715231) message] The system which generated this result [...] biotin. Lab Interpretation Normal (test code = 21705-9) [facility] [id number] 18:44:53 Test Item Value Reference Interpretation Comments Range TROPONIN I (test 0.000 ng/mL See_Comment [Automated code = 5293409547) message] The system which generated this result [...] biotin. Lab Interpretation Normal (test code = 25388-7) [facility] [id number] 18:44:53 Test Item Value Reference Interpretation Comments Range TROPONIN I (test 0.000 ng/mL See_Comment [Automated code = 4343933730) message] The system which generated this result [...] biotin. Lab Interpretation Normal (test code = 30291-6) [facility] (Na, K, Cl, CO2, Glucose, BUN, Creatinine, Ca)2022-02-15 18:27:49 Test Item Value Reference Range Interpretation Comments NA (test code = 138 mmol/L 135-145 2420150574) K (test code = 3.7 mmol/L 3.5-5 9477780791) CL (test code = 115 mmol/L 98-108 H 1909079419) CO2 TOTAL (test code = 16 mmol/L 23-31 L 5891790174) AGAP (test code = 2-16 6249789287) BUN (test code = 7 mg/dL 7-23 4936300580) GLUCOSE (test code = 195 mg/dL 70-110 H 5251591828) CREATININE (test code = 0.52 mg/dL 0.6-1.25 L 0087484330) CALCIUM (test code = 8.2 mg/dL 8.6-10.6 L 1561715488) eGFR (test code = mL/min/1.73m2 5836318071) ARPITA (test code = ARPITA) Association of [...] tests). Lab Interpretation Abnormal (test code = 85208-6) [facility] (Na, K, Cl, CO2, Glucose, BUN, Creatinine, Ca)2022-02-15 18:27:49 Test Item Value Reference Range Interpretation Comments NA (test code = 138 mmol/L 135-145 8336046343) K (test code = 3.7 mmol/L 3.5-5 9097461803) CL (test code = 115 mmol/L 98-108 H 2600782961) CO2 TOTAL (test code = 16 mmol/L 23-31 L 5880946771) AGAP (test code = 2-16 4723736429) BUN (test code = 7 mg/dL 7-23 4799802344) GLUCOSE (test code = 195 mg/dL 70-110 H 2016694428) CREATININE (test code = 0.52 mg/dL 0.6-1.25 L 6684565224) CALCIUM (test code = 8.2 mg/dL 8.6-10.6 L 9279466706) eGFR (test code = mL/min/1.73m2 4756403708) ARPITA (test code = ARPITA) Association of [...] tests). Lab Interpretation Abnormal (test code = 75530-9) [facility] HospitalBetahydroxy-Qlzvhzjz6563-28-90 17:43:01 Test Item Value Reference Range Interpretation Comments BOH (test code = 3.3 mmol/L 3220457425) ARPITA (test code = Normal Ranges: ? ? ARPITA) Nonfasting ? Less than 0.1 mmol/L ? ? Overnight Fast ? ? ? Less than 0.4 mmol/L ? ? Fasting (1-2 weeks) ?6-8 mmol/L Test developed and characteristics determined by [facility] Laboratory Services. [facility] HospitalBetahydroxy-Ryftguil5657-83-91 17:43:01 Test Item Value Reference Range Interpretation Comments BOH (test code = 3.3 mmol/L 5048312403) ARPITA (test code = Normal Ranges: ? ? ARPITA) Nonfasting ? Less than 0.1 mmol/L ? ? Overnight Fast ? ? ? Less than 0.4 mmol/L ? ? Fasting (1-2 weeks) ?6-8 mmol/L Test developed and characteristics determined by [facility] Laboratory Services. [facility]2022-02-15 17:29:05 Test Item Value Reference Range Interpretation Comments POCT GLU (test code = 5132195079) 192 mg/dL 70-110 H Lab Interpretation (test code = Abnormal 22800-8) [facility] GLUCOSE (AUTOMATED)2022-02-15 17:29:05 Test Item Value Reference Range Interpretation Comments POCT GLU (test code = 5796658270) 192 mg/dL 70-110 H Lab Interpretation (test code = Abnormal 13795-3) [facility] HospitalOsmolality [id number] 16:28:42 Test Item Value Reference Range Interpretation Comments OSMOLALITY (test code = See_Comment H [Au tomated message] 2692-2) The system [employer] generated this result transmitted ref erence range: 278 - 30 5 mOsm/kg. The reference range was not used to int erpret this result as normal/abnormal . Lab Interpretation (test Abnormal code = 58066-9) [facility] HospitalOsmolality [id number] 16:28:42 Test Item Value Reference Range Interpretation Comments OSMOLALITY (test code = See_Comment H [Au tomated message] 2692-2) The system [employer] generated this result transmitted ref erence range: 278 - 30 5 mOsm/kg. The reference range was not used to int erpret this result as normal/abnormal . Lab Interpretation (test Abnormal code = 04808-9) [facility] HospitalOsmolality [id number] 16:28:42 Test Item Value Reference Range Interpretation Comments OSMOLALITY (test code = See_Comment H [Au tomated message] 2692-2) The system [employer] generated this result transmitted ref erence range: 278 - 30 5 mOsm/kg. The reference range was not used to int erpret this result as normal/abnormal . Lab Interpretation (test Abnormal code = 72453-1) [facility] Metabolic Panel (Na, K, Cl, CO2, Glucose, BUN, Creatinine, Ca)2022-02-15 16:02:27 Test Item Value Reference Range Interpretation Comments NA (test code = 138 mmol/L 135-145 3507139232) K (test code = 3.7 mmol/L 3.5-5 9685034273) CL (test code = 117 mmol/L 98-108 H 1763572092) CO2 TOTAL (test code = 15 mmol/L 23-31 L 6700606893) AGAP (test code = 2-16 4978240858) BUN (test code = 7 mg/dL 7-23 7155877417) GLUCOSE (test code = 204 mg/dL 70-110 H 6666979115) CREATININE (test code = 0.41 mg/dL 0.6-1.25 L 5474695496) CALCIUM (test code = 8.3 mg/dL 8.6-10.6 L 4716118308) eGFR (test code = mL/min/1.73m2 6525671792) ARPITA (test code = ARPITA) Association of [...] tests). Lab Interpretation Abnormal (test code = 84471-7) [facility] Metabolic Panel (Na, K, Cl, CO2, Glucose, BUN, Creatinine, Ca)2022-02-15 16:02:27 Test Item Value Reference Range Interpretation Comments NA (test code = 138 mmol/L 135-145 1621731898) K (test code = 3.7 mmol/L 3.5-5 2609910305) CL (test code = 117 mmol/L 98-108 H 9088952668) CO2 TOTAL (test code = 15 mmol/L 23-31 L 7679661110) AGAP (test code = 2-16 7391716800) BUN (test code = 7 mg/dL 7-23 6817519702) GLUCOSE (test code = 204 mg/dL 70-110 H 1827991559) CREATININE (test code = 0.41 mg/dL 0.6-1.25 L 4328639007) CALCIUM (test code = 8.3 mg/dL 8.6-10.6 L 4017514941) eGFR (test code = mL/min/1.73m2 1921711085) ARPITA (test code = ARPITA) Association of [...] tests). Lab Interpretation Abnormal (test code = 33477-2) [facility] GLUCOSE (AUTOMATED)2022-02-15 15:54:35 Test Item Value Reference Range Interpretation Comments POCT GLU (test code = 7961648182) 200 mg/dL 70-110 H Lab Interpretation (test code = Abnormal 00757-1) [facility] GLUCOSE (AUTOMATED)2022-02-15 15:54:35 Test Item Value Reference Range Interpretation Comments POCT GLU (test code = 0999666647) 200 mg/dL 70-110 H Lab Interpretation (test code = Abnormal 89704-7) [facility] GLUCOSE (AUTOMATED)2022-02-15 14:57:17 Test Item Value Reference Range Interpretation Comments POCT GLU (test code = 9663141824) 211 mg/dL 70-110 H Lab Interpretation (test code = Abnormal 98208-1) [facility] GLUCOSE (AUTOMATED)2022-02-15 14:57:17 Test Item Value Reference Range Interpretation Comments POCT GLU (test code = 6355156760) 211 mg/dL 70-110 H Lab Interpretation (test code = Abnormal 44097-0) [facility] GLUCOSE (AUTOMATED)2022-02-15 13:50:06 Test Item Value Reference Range Interpretation Comments POCT GLU (test code = 8782804480) 216 mg/dL 70-110 H Lab Interpretation (test code = Abnormal 82639-7) [facility] GLUCOSE (AUTOMATED)2022-02-15 13:50:06 Test Item Value Reference Range Interpretation Comments POCT GLU (test code = 4703620366) 216 mg/dL 70-110 H Lab Interpretation (test code = Abnormal 72321-3) [facility] GLUCOSE (AUTOMATED)2022-02-15 10:43:13 Test Item Value Reference Range Interpretation Comments POCT GLU (test code = 6628956579) 199 mg/dL 70-110 H Lab Interpretation (test code = Abnormal 20214-0) [facility] GLUCOSE (AUTOMATED)2022-02-15 10:43:13 Test Item Value Reference Range Interpretation Comments POCT GLU (test code = 4357841015) 199 mg/dL 70-110 H Lab Interpretation (test code = Abnormal 83191-9) [facility] GLUCOSE (AUTOMATED)2022-02-15 09:31:59 Test Item Value Reference Range Interpretation Comments POCT GLU (test code = 0608924519) 172 mg/dL 70-110 H Lab Interpretation (test code = Abnormal 50878-8) [facility] GLUCOSE (AUTOMATED)2022-02-15 09:31:59 Test Item Value Reference Range Interpretation Comments POCT GLU (test code = 7492083093) 172 mg/dL 70-110 H Lab Interpretation (test code = Abnormal 75298-4) [facility] Metabolic Panel (Na, K, Cl, CO2, Glucose, BUN, Creatinine, Ca)2022-02-15 08:02:13 Test Item Value Reference Range Interpretation Comments NA (test code = 140 mmol/L 135-145 2643034401) K (test code = 3.8 mmol/L 3.5-5 0211393159) CL (test code = 110 mmol/L 98-108 H 5994358599) CO2 TOTAL (test code = 13 mmol/L 23-31 L 5982348176) AGAP (test code = 2-16 H 1977814981) BUN (test code = 10 mg/dL 7-23 5241599384) GLUCOSE (test code = 223 mg/dL 70-110 H 3318406099) CREATININE (test code = 0.58 mg/dL 0.6-1.25 L 1637228339) CALCIUM (test code = 8.8 mg/dL 8.6-10.6 3935740003) eGFR (test code = mL/min/1.73m2 4846173433) ARPITA (test code = ARPITA) Association of [...] tests). Lab Interpretation Abnormal (test code = 68187-0) [facility] Metabolic Panel (Na, K, Cl, CO2, Glucose, BUN, Creatinine, Ca)2022-02-15 08:02:13 Test Item Value Reference Range Interpretation Comments NA (test code = 140 mmol/L 135-145 4533269770) K (test code = 3.8 mmol/L 3.5-5 4501968006) CL (test code = 110 mmol/L 98-108 H 2676418676) CO2 TOTAL (test code = 13 mmol/L 23-31 L 1148772108) AGAP (test code = 2-16 H 5192708377) BUN (test code = 10 mg/dL 7-23 8397815805) GLUCOSE (test code = 223 mg/dL 70-110 H 3602876255) CREATININE (test code = 0.58 mg/dL 0.6-1.25 L 6412523422) CALCIUM (test code = 8.8 mg/dL 8.6-10.6 8703380692) eGFR (test code = mL/min/1.73m2 3787446345) ARPITA (test code = ARPITA) Association of [...] tests). Lab Interpretation Abnormal (test code = 49584-2) [facility] GLUCOSE (AUTOMATED)2022-02-15 07:26:01 Test Item Value Reference Range Interpretation Comments POCT GLU (test code = 8183791814) 245 mg/dL 70-110 H Lab Interpretation (test code = Abnormal 17580-5) [facility] GLUCOSE (AUTOMATED)2022-02-15 07:26:01 Test Item Value Reference Range Interpretation Comments POCT GLU (test code = 2395244905) 245 mg/dL 70-110 H Lab Interpretation (test code = Abnormal 89768-7) [facility] GLUCOSE(AGE >30DAYS)2022-02-15 07:11:00 Test Item Value Reference Range Interpretation Comments POCT Glu (age>30days) (test code = 245 mg/dL 70-110 3342) Lab Interpretation (test code = Normal 82379-3) [facility] GLUCOSE(AGE >30DAYS)2022-02-15 07:11:00 Test Item Value Reference Range Interpretation Comments POCT Glu (age>30days) (test code = 245 mg/dL 70-110 3342) Lab Interpretation (test code = Normal 91175-9) [facility] GLUCOSE(AGE >30DAYS)2022-02-15 07:11:00 Test Item Value Reference Range Interpretation Comments POCT Glu (age>30days) (test code = 245 mg/dL 70-110 3342) Lab Interpretation (test code = Normal 22847-0) [facility]1C)2022-02-15 05:57:25 Test Item Value Reference Range Interpretation Comments HGB A1C (test code = 12.7 % 4-5.7 H 4548-4) ARPITA (test code = ARPITA) Reference RangesNormal: <5.7%Prediabetes: 5.7 - 6.4%Diabetes: > 6.5% Lab Interpretation (test Abnormal code = 57809-3) [facility]C)2022-02-15 05:57:25 Test Item Value Reference Range Interpretation Comments HGB A1C (test code = 12.7 % 4-5.7 H 4548-4) ARPITA (test code = ARPITA) Reference RangesNormal: <5.7%Prediabetes: 5.7 - 6.4%Diabetes: > 6.5% Lab Interpretation (test Abnormal code = 24892-7) [facility] (A1C)2022-02-15 05:57:25 Test Item Value Reference Range Interpretation Comments HGB A1C (test code = 12.7 % 4-5.7 H 4548-4) ARPITA (test code = ARPITA) Reference RangesNormal: <5.7%Prediabetes: 5.7 - 6.4%Diabetes: > 6.5% Lab Interpretation (test Abnormal code = 53863-9) [facility] [id number] 05:46:44 Test Item Value Reference Range Interpretation Comments MAGNESIUM (test code = 1422010399) 1.7 mg/dL 1.7-2.4 Lab Interpretation (test code = Normal 06645-1) [facility] Puknr9421-86-79 05:46:44 Test Item Value Reference Range Interpretation Comments MAGNESIUM (test code = 4659942004) 1.7 mg/dL 1.7-2.4 Lab Interpretation (test code = Normal 04582-6) [facility] Keuaa7092-85-82 05:46:24 Test Item Value Reference Range Interpretation Comments PHOSPHORUS (test code = 8142344562) 4.0 mg/dL 2.5-5 Lab Interpretation (test code = Normal 18768-0) [facility] Mhtmr7954-24-27 05:46:24 Test Item Value Reference Range Interpretation Comments PHOSPHORUS (test code = 2509271316) 4.0 mg/dL 2.5-5 Lab Interpretation (test code = Normal 41869-6) [facility] Lnesh8888-01-21 05:46:24 Test Item Value Reference Range Interpretation Comments PHOSPHORUS (test code = 8439605294) 4.0 mg/dL 2.5-5 Lab Interpretation (test code = Normal 38766-8) [facility] GLUCOSE (AUTOMATED)2022-02-15 05:11:10 Test Item Value Reference Range Interpretation Comments POCT GLU (test code = 8266375956) 410 mg/dL 70-110 H Lab Interpretation (test code = Abnormal 17209-8) [facility] GLUCOSE (AUTOMATED)2022-02-15 05:11:10 Test Item Value Reference Range Interpretation Comments POCT GLU (test code = 5587144700) 410 mg/dL 70-110 H Lab Interpretation (test code = Abnormal 43270-0) [facility] GLUCOSE(AGE >30DAYS)2022-02-15 05:11:00 Test Item Value Reference Range Interpretation Comments POCT Glu (age>30days) (test code = 410 mg/dL 70-110 A 3342) Lab Interpretation (test code = Abnormal 80439-1) [facility] >30DAYS[facility]2022-02-15 05:11:00 Test Item Value Reference Range Interpretation Comments POCT Glu (age>30days) (test code = 410 mg/dL 70-110 A 3342) Lab Interpretation (test code = Abnormal 76512-3) [facility] WITH [id number] 05:03:57 Test Item Value Reference Range Interpretation Comments WBC (test code = See_Comment [Automated 2390-2) message] The sy stem which generated this [...] RDW-SD (test code = 44.1 fL 38.5-51.6 27255-1) RDW-CV (test code = 13.8 % 12.1-15.4 788-0) PLT (test code = See_Comment H [Automated 777-3) message] The sy stem which generated this result transmitted reference range : 150 - 328 10*3/ ?L. The reference r boubacar was not used to interpret this result as normal/abnormal . MPV (test code = 12.2 fL 9.8-13 96503-6) IPF % (test code = 9.4 % 1.2-10.7 Platelet count 6736122940) measured by fluorescence method. NRBC/100 WBC (test See_Comment [Automat ed code = 0199010828) message] The system which generated this result transmitted reference range : 0.0 - 10.0 /100 WBCs. The refer ence range was not u sed to interpret th is result as normal/abnormal . NRBC x10^3 (test code See_Comment [Auto mated = 0661730688) message] The s ystem which generated this result transmitted reference range : 10*3/?L. The reference range was not used to interpret this result as normal/abnormal . GRAN MAT (NEUT) % 65.1 % (test code = 770-8) IMM GRAN % (test code 1.10 % = 7140859162) LYMPH % (test code = 22.4 % 736-9) MONO % (test code = 9.8 % 5905-5) EOS % (test code = 1.4 % 713-8) BASO % (test code = 0.2 % 706-2) GRAN MAT x10^3(ANC) 6.15 10*3/uL 1.99-6.95 (test code = 7610249777) IMM GRAN x10^3 (test 0.10 10*3/uL 0-0.06 H code = 1143725751) LYMPH x10^3 (test code 2.11 10*3/uL 1.09-3.23 = 731-0) MONO x10^3 (test code 0.92 10*3/uL 0.36-1.02 = 742-7) EOS x10^3 (test code = 0.13 10*3/uL 0.06-0.53 711-2) BASO x10^3 (test code 0.01-0.09 = 704-7) Lab Interpretation Abnormal (test code = 69099-7) [facility] WITH [id number] 05:03:57 Test Item Value Reference Range Interpretation [...] RDW-SD (test code = 44.1 fL 38.5-51.6 73877-0) RDW-CV (test code = 13.8 % 12.1-15.4 788-0) PLT (test code = See_Comment H [Automated 777-3) message] The sy stem which generated this result transmitted reference range : 150 - 328 10*3/ ?L. The reference r boubacar was not used to interpret this result as normal/abnormal . MPV (test code = 12.2 fL 9.8-13 33262-9) IPF % (test code = 9.4 % 1.2-10.7 Platelet count 1630585482) measured by fluorescence method. NRBC/100 WBC (test See_Comment [Automat ed code = 0472990990) message] The system which generated this result transmitted reference range : 0.0 - 10.0 /100 WBCs. The refer ence range was not u sed to interpret th is result as normal/abnormal . NRBC x10^3 (test code See_Comment [Auto mated = 4926975408) message] The s ystem which generated this result transmitted reference range : 10*3/?L. The reference range was not used to interpret this result as normal/abnormal . GRAN MAT (NEUT) % 65.1 % (test code = 770-8) IMM GRAN % (test code 1.10 % = 1733653296) LYMPH % (test code = 22.4 % 736-9) MONO % (test code = 9.8 % 5905-5) EOS % (test code = 1.4 % 713-8) BASO % (test code = 0.2 % 706-2) GRAN MAT x10^3(ANC) 6.15 10*3/uL 1.99-6.95 (test code = 7004769197) IMM GRAN x10^3 (test 0.10 10*3/uL 0-0.06 H code = 7593756207) LYMPH x10^3 (test code 2.11 10*3/uL 1.09-3.23 = 731-0) MONO x10^3 (test code 0.92 10*3/uL 0.36-1.02 = 742-7) EOS x10^3 (test code = 0.13 10*3/uL 0.06-0.53 711-2) BASO x10^3 (test code 0.01-0.09 = 704-7) Lab Interpretation Abnormal (test code = 16965-5) [facility] METABOLIC PANEL (NA, K, CL, CO2, GLUCOSE, BUN, CREATININE, CA)2022-02-15 04:46:12 Test Item Value Reference Range Interpretation Comments NA (test code = 136 mmol/L 135-145 7134462686) K (test code = 5.1 mmol/L 3.5-5 H 2618586135) CL (test code = 106 mmol/L 98-108 2684233915) CO2 TOTAL (test code = 9 mmol/L 23-31 L 5311936714) AGAP (test code = 2-16 H 3277282296) BUN (test code = 11 mg/dL 7-23 8895177043) GLUCOSE (test code = 405 mg/dL 70-110 H 3667518695) CREATININE (test code = 0.62 mg/dL 0.6-1.25 3472440777) CALCIUM (test code = 9.5 mg/dL 8.6-10.6 3515268837) eGFR (test code = mL/min/1.73m2 9235124294) ARPITA (test code = ARPITA) Association of [...] tests). Lab Interpretation Abnormal (test code = 34170-8) [facility] METABOLIC PANEL (NA, K, CL, CO2, GLUCOSE, BUN, CREATININE, CA)2022-02-15 04:46:12 Test Item Value Reference Range Interpretation Comments NA (test code = 136 mmol/L 135-145 5816090483) K (test code = 5.1 mmol/L 3.5-5 H 7466317573) CL (test code = 106 mmol/L 98-108 5801461013) CO2 TOTAL (test code = 9 mmol/L 23-31 L 6869386537) AGAP (test code = 2-16 H 1776232091) BUN (test code = 11 mg/dL 7-23 2528247937) GLUCOSE (test code = 405 mg/dL 70-110 H 4933440826) CREATININE (test code = 0.62 mg/dL 0.6-1.25 5274999656) CALCIUM (test code = 9.5 mg/dL 8.6-10.6 8198257390) eGFR (test code = mL/min/1.73m2 7314948736) ARPITA (test code = ARPITA) Association of [...] tests). Lab Interpretation Abnormal (test code = 50707-2) [facility] / [id number] 04:43:36 Test Item Value Reference Range Interpretation Comments PROTIME PATIENT (test See_Comment [Auto mated message] code = 5964-2) The system [facility] generated this result transmitted ref erence range: 12.0 - 1 4.7 Seconds. The re ference range was not u sed to interpret this result as normal/abnor mal. INR (test code = 6301-6) Nor mal INR <1.1; Warfarin Therap eutic range 2.0 to 3. 0 or 2.5 to 3.5, dep ending upon the indica tions. Lab Interpretation (test Normal code = 42486-7) [facility] / [id number] 04:43:36 Test Item Value Reference Range Interpretation Comments PROTIME PATIENT (test See_Comment [Auto mated message] code = 5964-2) The system [employer] generated this result transmitted ref erence range: 12.0 - 1 4.7 Seconds. The re ference range was not u sed to interpret this result as normal/abnor mal. INR (test code = 6301-6) Nor mal INR <1.1; Warfarin Therap eutic range 2.0 to 3. 0 or 2.5 to 3.5, dep ending upon the indica tions. Lab Interpretation (test Normal code = 23721-3) [facility] / [id number] 04:43:36 Test Item Value Reference Range Interpretation Comments PROTIME PATIENT (test See_Comment [Auto mated message] code = 5964-2) The system [employer] generated this result transmitted ref erence range: 12.0 - 1 4.7 Seconds. The re ference range was not u sed to interpret this result as normal/abnor mal. INR (test code = 6301-6) Nor mal INR <1.1; Warfarin Therap eutic range 2.0 to 3. 0 or 2.5 to 3.5, dep ending upon the indica tions. Lab Interpretation (test Normal code = 50564-0) [facility] (28623[facility] (ALB,T.PRO,BILI T,BU/BC,ALT,AST,ALK PHOS)2022-02-15 04:40:15 Test Item Value Reference Range Interpretation Comments TOTAL BILI (test code = 4571296916) 0.9 mg/dL 0.1-1.1 BILI UNCON (test code = 4069486147) 0.3 mg/dL 0.1-1.1 BILI CONJ (test code = 9783486083) 0.0 mg/dL 0-0.3 T PROTEIN (test code = 5391124313) 7.5 g/dL 6.3-8.2 ALBUMIN (test code = 5569571899) 4.0 g/dL 3.5-5 ALK PHOS (test code = 1060195553) 166 U/L 34-122 H ALTv (test code = 1742-6) 28 U/L 5-50 AST(SGOT) (test code = 2976986406) 22 U/L 13-40 Lab Interpretation (test code = Abnormal 29391-9) [facility] (88738) (ALB,T.PRO,BILI T,BU/BC,ALT,AST,ALK PHOS)2022-02-15 04:40:15 Test Item Value Reference Range Interpretation Comments TOTAL BILI (test code = 2422540127) 0.9 mg/dL 0.1-1.1 BILI UNCON (test code = 6953665671) 0.3 mg/dL 0.1-1.1 BILI CONJ (test code = 6691537400) 0.0 mg/dL 0-0.3 T PROTEIN (test code = 1310865035) 7.5 g/dL 6.3-8.2 ALBUMIN (test code = 6025038711) 4.0 g/dL 3.5-5 ALK PHOS (test code = 1249032454) 166 U/L 34-122 H ALTv (test code = 1742-6) 28 U/L 5-50 AST(SGOT) (test code = 3522778880) 22 U/L 13-40 Lab Interpretation (test code = Abnormal 17597-3) [facility] (14032) (ALB,T.PRO,BILI T,BU/BC,ALT,AST,ALK PHOS)2022-02-15 04:40:15 Test Item Value Reference Range Interpretation Comments TOTAL BILI (test code = 2452859424) 0.9 mg/dL 0.1-1.1 BILI UNCON (test code = 8300878229) 0.3 mg/dL 0.1-1.1 BILI CONJ (test code = 7945016409) 0.0 mg/dL 0-0.3 T PROTEIN (test code = 8068706261) 7.5 g/dL 6.3-8.2 ALBUMIN (test code = 4876904696) 4.0 g/dL 3.5-5 ALK PHOS (test code = 7409676523) 166 U/L 34-122 H ALTv (test code = 1742-6) 28 U/L 5-50 AST(SGOT) (test code = 6004439247) 22 U/L 13-40 Lab Interpretation (test code = Abnormal 08442-5) [facility] 04:40:00 Test Item Value Reference Range Interpretation Comments LIPASE (test code = 7442598953) 239 U/L 0-220 H Lab Interpretation (test code = Abnormal 50680-2) [facility] 04:40:00 Test Item Value Reference Range Interpretation Comments LIPASE (test code = 0569816943) 239 U/L 0-220 H Lab Interpretation (test code = Abnormal 07485-9) [facility] 04:40:00 Test Item Value Reference Range Interpretation Comments LIPASE (test code = 0388967786) 239 U/L 0-220 H Lab Interpretation (test code = Abnormal 30823-5) [facility] HospitalBL[facility] C[facility]URE [id number] 02:01:26 Test Item Value Reference Range Interpretation Comments Blood Culture-Aerobic No organisms No growth Previo us (test code = 21487-1) isolated prelim inary verified result was Culture [...] Culture-Anaerobic isolated preliminar y (test code = 69455-3) verifi ed result was Culture In Progress [...] CDT Lab Interpretation Normal (test code = 15167-6) [facility] GLUCOSE (AUTOMATED)2022-02-10 19:39:16 Test Item Value Reference Range Interpretation Comments POCT GLU (test code = 8339986701) 153 mg/dL 70-110 H Lab Interpretation (test code = Abnormal 81926-0) [facility] GLUCOSE (AUTOMATED)2022-02-10 16:42:59 Test Item Value Reference Range Interpretation Comments POCT GLU (test code = 2059279828) 311 mg/dL 70-110 H Lab Interpretation (test code = Abnormal 41058-4) [facility] GLUCOSE (AUTOMATED)2022-02-10 01:48:17 Test Item Value Reference Range Interpretation Comments POCT GLU (test code = 2051783666) 253 mg/dL 70-110 H Lab Interpretation (test code = Abnormal 39290-6) [facility] GLUCOSE (AUTOMATED)2022-02-09 21:48:07 Test Item Value Reference Range Interpretation Comments POCT GLU (test code = 0273260564) 279 mg/dL 70-110 H Lab Interpretation (test code = Abnormal 31536-5) [facility] GLUCOSE (AUTOMATED)2022-02-09 16:48:09 Test Item Value Reference Range Interpretation Comments POCT GLU (test code = 8986151794) 275 mg/dL 70-110 H Lab Interpretation (test code = Abnormal 66368-1) [facility] METABOLIC PANEL (NA, K, CL, CO2, GLUCOSE, BUN, CREATININE, CA)2022-02-09 15:41:54 Test Item Value Reference Range Interpretation Comments NA (test code = 148 mmol/L 135-145 H 4500211824) K (test code = 4.3 mmol/L 3.5-5 6323065595) CL (test code = 123 mmol/L 98-108 H 9824446228) CO2 TOTAL (test code = 19 mmol/L 23-31 L 0404646010) AGAP (test code = 2-16 3607944898) BUN (test code = 23 mg/dL 7-23 2285330424) GLUCOSE (test code = 305 mg/dL 70-110 H 7440795235) CREATININE (test code = 0.61 mg/dL 0.6-1.25 2222192700) CALCIUM (test code = 8.5 mg/dL 8.6-10.6 L 7694158837) eGFR (test code = mL/min/1.73m2 4517191444) ARPITA (test code = ARPITA) Association of [...] tests). Lab Interpretation Abnormal (test code = 12167-2) [facility]07 Test Item Value Reference Range Interpretation Comments MAGNESIUM (test code = 7509849003) 1.8 mg/dL 1.7-2.4 Lab Interpretation (test code = Normal 18584-6) [facility] 15:17:07 Test Item Value Reference Range Interpretation Comments PHOSPHORUS (test code = 6565463075) 2.2 mg/dL 2.5-5 L Lab Interpretation (test code = Abnormal 12328-1) [facility] GLUCOSE (AUTOMATED)2022-02-09 12:48:51 Test Item Value Reference Range Interpretation Comments POCT GLU (test code = 7865859547) 274 mg/dL 70-110 H Lab Interpretation (test code = Abnormal 11032-2) [facility] GLUCOSE (AUTOMATED)2022-02-09 01:10:30 Test Item Value Reference Range Interpretation Comments POCT GLU (test code = 5611432089) 248 mg/dL 70-110 H Lab Interpretation (test code = Abnormal 64985-3) [facility] GLUCOSE (AUTOMATED)2022-02-09 01:10:30 Test Item Value Reference Range Interpretation Comments POCT GLU (test code = 7037842593) 300 mg/dL 70-110 H Lab Interpretation (test code = Abnormal 32451-5) [facility] GLUCOSE (AUTOMATED)2022-02-08 16:52:44 Test Item Value Reference Range Interpretation Comments POCT GLU (test code = 8825424081) 296 mg/dL 70-110 H Lab Interpretation (test code = Abnormal 38155-2) [facility] GLUCOSE (AUTOMATED)2022-02-08 16:52:43 Test Item Value Reference Range Interpretation Comments POCT GLU (test code = 5031831583) 345 mg/dL 70-110 H Lab Interpretation (test code = Abnormal 07312-6) [facility] GLUCOSE (AUTOMATED)2022-02-08 16:52:38 Test Item Value Reference Range Interpretation Comments POCT GLU (test code = 2292415711) 363 mg/dL 70-110 H Lab Interpretation (test code = Abnormal 19025-7) [facility] GLUCOSE (AUTOMATED)2022-02-08 16:52:38 Test Item Value Reference Range Interpretation Comments POCT GLU (test code = 9702768982) 444 mg/dL 70-110 H Lab Interpretation (test code = Abnormal 45101-5) [facility] GLUCOSE (AUTOMATED)2022-02-08 16:52:38 Test Item Value Reference Range Interpretation Comments POCT GLU (test code = 9818955094) 324 mg/dL 70-110 H Lab Interpretation (test code = Abnormal 63619-4) [facility] GLUCOSE (AUTOMATED)2022-02-08 16:52:38 Test Item Value Reference Range Interpretation Comments POCT GLU (test code = 9170354793) 303 mg/dL 70-110 H Lab Interpretation (test code = Abnormal 62589-9) [facility] GLUCOSE (AUTOMATED)2022-02-08 16:52:38 Test Item Value Reference Range Interpretation Comments POCT GLU (test code = 4705424881) 288 mg/dL 70-110 H Lab Interpretation (test code = Abnormal 90552-3) [facility] GLUCOSE (AUTOMATED)2022-02-08 16:37:12 Test Item Value Reference Range Interpretation Comments POCT GLU (test code = 8132337296) 241 mg/dL 70-110 H Lab Interpretation (test code = Abnormal 03982-9) [facility] GLUCOSE (AUTOMATED)2022-02-08 13:14:11 Test Item Value Reference Range Interpretation Comments POCT GLU (test code = 4338605209) 264 mg/dL 70-110 H Lab Interpretation (test code = Abnormal 69288-5) [facility] GLUCOSE (AUTOMATED)2022-02-08 11:04:52 Test Item Value Reference Range Interpretation Comments POCT GLU (test code = 6582110620) 257 mg/dL 70-110 H Lab Interpretation (test code = Abnormal 90045-2) [facility] GLUCOSE (AUTOMATED)2022-02-08 07:51:27 Test Item Value Reference Range Interpretation Comments POCT GLU (test code = 2266217433) 228 mg/dL 70-110 H Lab Interpretation (test code = Abnormal 96978-5) [facility] GLUCOSE (AUTOMATED)2022-02-08 03:43:14 Test Item Value Reference Range Interpretation Comments POCT GLU (test code = 5024984730) 269 mg/dL 70-110 H Lab Interpretation (test code = Abnormal 73592-6) [facility] GLUCOSE (AUTOMATED)2022-02-08 00:53:27 Test Item Value Reference Range Interpretation Comments POCT GLU (test code = 0172455424) 342 mg/dL 70-110 H Lab Interpretation (test code = Abnormal 57222-3) [facility] Metabolic Panel (Na, K, Cl, CO2, Glucose, BUN, Creatinine, Ca)2022-02-08 00:26:35 Test Item Value Reference Range Interpretation Comments NA (test code = 161 mmol/L 135-145 HH 2380406440) K (test code = 5.3 mmol/L 3.5-5 H 7921811652) CL (test code = 131 mmol/L 98-108 H 8363345742) CO2 TOTAL (test code = 14 mmol/L 23-31 L 3331517938) AGAP (test code = 2-16 9773324589) BUN (test code = 40 mg/dL 7-23 H 8726105702) GLUCOSE (test code = 363 mg/dL 70-110 H 0650355322) CREATININE (test code = 1.31 mg/dL 0.6-1.25 H 1411435993) CALCIUM (test code = 9.0 mg/dL 8.6-10.6 1006168543) eGFR (test code = mL/min/1.73m2 0468478444) ARPITA (test code = ARPITA) Association of [...] tests). Lab Interpretation Abnormal (test code = 31066-3) [facility] GLUCOSE (AUTOMATED)2022-02-07 22:31:31 Test Item Value Reference Range Interpretation Comments POCT GLU (test code = 0781064251) 349 mg/dL 70-110 H Lab Interpretation (test code = Abnormal 67158-0) [facility] GLUCOSE (AUTOMATED)2022-02-07 20:57:05 Test Item Value Reference Range Interpretation Comments POCT GLU (test code = 2705433493) 70-110 HH Lab Interpretation (test code = Abnormal 15557-3) [facility] GLUCOSE (AUTOMATED)2022-02-07 20:57:00 Test Item Value Reference Range Interpretation Comments POCT GLU (test code = 1022343201) 70-110 HH Lab Interpretation (test code = Abnormal 66145-0) [facility] GLUCOSE (AUTOMATED)2022-02-07 20:57:00 Test Item Value Reference Range Interpretation Comments POCT GLU (test code = 5796781943) 70-110 HH Lab Interpretation (test code = Abnormal 67557-3) [facility] GLUCOSE (AUTOMATED)2022-02-07 20:57:00 Test Item Value Reference Range Interpretation Comments POCT GLU (test code = 7569929911) 70-110 HH Lab Interpretation (test code = Abnormal 92043-2) [facility] Whole [id number] 12:58:42 Test Item Value Reference Range Interpretation Comments LACTIC ACID (test code = 4.32 mmol/L 0.5-2.2 H 0115122894) Lab Interpretation (test code = Abnormal 94460-4) [facility] [id number] 03:51:48 Test Item Value Reference Range Interpretation Comments PHOSPHORUS (test code = 6.7 mg/dL 2.5-5 H Slig ht hemolysis 4742867519) Lab Interpretation (test Abnormal code = 15862-1) [facility] Hqgyb7370-79-60 03:51:48 Test Item Value Reference Range Interpretation Comments MAGNESIUM (test code = 7471124449) 2.8 mg/dL 1.7-2.4 H Lab Interpretation (test code = Abnormal 50176-2) [facility]OL[facility] (01461)2022-02-07 02:16:52 Test Item Value Reference Range Interpretation Comments NA (test code = 166 mmol/L 135-145 HH 8971302565) K (test code = 5.2 mmol/L 3.5-5 H 0079367787) CL (test code = 123 mmol/L 98-108 H 7197975956) CO2 TOTAL (test code = 12 mmol/L 23-31 L 3259336786) AGAP (test code = 2-16 H 9260453141) BUN (test code = 35 mg/dL 7-23 H 0188917112) GLUCOSE (test code = 941 mg/dL 70-110 HH 6130004939) CREATININE (test code = 1.51 mg/dL 0.6-1.25 H 3979971107) TOTAL BILI (test code = 1.1 mg/dL 0.1-1.0 8689846746) CALCIUM (test code = 10.7 mg/dL 8.6-10.6 H 0279960675) T PROTEIN (test code = 8.2 g/dL 6.3-8.2 3774281525) ALBUMIN (test code = 4.5 g/dL 3.5-5 5019533710) ALK PHOS (test code = 201 U/L 34-122 H 6256547563) ALTv (test code = 43 U/L 5-50 1742-6) AST(SGOT) (test code = 27 U/L 13-40 0280249482) eGFR (test code = mL/min/1.73m2 4780902146) ARPITA (test code = ARPITA) Association of [...] tests). Lab Interpretation Abnormal (test code = 33933-0) [facility] HospitalTRADELAIDAN [id number] 02:12:40 Test Item Value Reference Interpretation Comments Range TROPONIN I (test 0.005 ng/mL See_Comment [Automated code = 4654781045) message] The system which generated this result [...] biotin. Lab Interpretation Normal (test code = 24879-3) [facility]ATE[facility] 02:06:11 SALICYLATE<10mg/L02/06/2022 9:06 PM [facility] Range: ? Analgesic and Antipyretic Use ? 20- 100 mg/L ? ? Anti-Inflammatory Use ? 100-250 mg/L Toxic Range: ? Greater than 300 mg/LUnMem[facility] HospitalSALICYLATE2022-07-27 02:06:11SALICYLATE<10mg/L02/06/2022 9:06 PM [facility] Range: ? Analgesic and Antipyretic Use ? 20-100 mg/L ? ? Anti-Inflammatory Use ? 100-250 mg/L Toxic Range: ? Greater than 300 mg/L [facility]2022-07-27 02:05:51 ALCOHOL<10mg/dL02/06/2022 9:05 PM 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>400 Fatalities ReportedUnTexas [facility]2022-[facility]-27 02:03:04 Test Item Value Reference Range Interpretation Comments ACETAMINOP (test code = 10-30 L 3563464344) ARPITA (test code = ARPITA) Toxic: Greater than 200 ug/mL @ 4 hour post ingestion or greater than 50 ug/mL @ 12 hour post ingestion Lab Interpretation (test Abnormal code = 46494-1) [facility] HospitalACETAMINOPHEN2022-07-27 02:03:04 Test Item Value Reference Range Interpretation Comments ACETAMINOP (test code = 10-30 L 9271228422) ARPITA (test code = ARPITA) Toxic: Greater than 200 ug/mL @ 4 hour post ingestion or greater than 50 ug/mL @ 12 hour post ingestion Lab Interpretation (test Abnormal code = 08766-8) [facility] 02:01:02 Test Item Value Reference Range Interpretation Comments LIPASE (test code = 2661320232) 246 U/L 0-220 H Lab Interpretation (test code = Abnormal 49915-5) [facility] WITH [id number] 01:12:41 Test Item Value Reference Range Interpretation Comments WBC (test code = See_Comment H [Automated 9308-2) message] The system which generated this result [...] RDW-SD (test code = 50.8 fL 38.5-51.6 45356-6) RDW-CV (test code = 16.4 % 12.1-15.4 H 788-0) PLT (test code = See_Comment H [Automated 777-3) message] The system which generated this result transmit lester reference range : 150 - 328 10*3/ ?L. The reference range was not u sed to interpret th is result as normal/abnormal . MPV (test code = 11.6 fL 9.8-13 88860-5) NRBC/100 WBC (test See_Comment [Automat ed code = 7761145385) message] The system which generated this result transmit lester reference range : 0.0 - 10.0 /100 WBCs. The reference range was not used to interpret this result as normal/abnormal . NRBC x10^3 (test code See_Comment [Auto mated = 1929733280) message] The system which generated this result transmit lester reference range : 10*3/?L. The reference range was not used to interpret this result as normal/abnormal . SEG % (test code = 77 % 33-76 H 71820-5) BAND % (test code = 9 % 0-1 H 95047-8) LYMPH % (test code = 7 % 14-54 L 09903-1) MONO % (test code = 7 % 0-4 H 68713-6) ANC (test code = 15.98 10*3/uL 1.99-6.95 H 753-4) ALBERT CELLS (test code 2+ See_Comment A [Auto mated = 7790-9) message] The system which generated this result transmit lester reference range : (none). The reference range was not used to interpret this result as normal/abnormal . Lab Interpretation Abnormal (test code = 70580-5) [facility] GLUCOSE (AUTOMATED)2022-01-27 01:30:22 Test Item Value Reference Range Interpretation Comments POCT GLU (test code = 8093860685) 392 mg/dL 70-110 H Lab Interpretation (test code = Abnormal 23987-1) [facility] GLUCOSE(AGE >30DAYS)2022-01-27 01:30:00 Test Item Value Reference Range Interpretation Comments POCT Glu (age>30days) 392 mg/dL, 70-110 (test code = 3342) informed Lab Interpretation (test Normal code = 65859-0) [facility] GLUCOSE (AUTOMATED)2022-01-27 00:43:22 Test Item Value Reference Range Interpretation Comments POCT GLU (test code = 7937152726) 430 mg/dL 70-110 H Lab Interpretation (test code = Abnormal 14268-4) [facility] GLUCOSE (AUTOMATED)2022-01-26 23:29:00 Test Item Value Reference Range Interpretation Comments POCT GLU (test code = 4118133198) 493 mg/dL 70-110 HH Lab Interpretation (test code = Abnormal 58556-4) [facility] METABOLIC PANEL (NA, K, CL, CO2, GLUCOSE, BUN, CREATININE, CA)2022-01-26 22:56:10 Test Item Value Reference Range Interpretation Comments NA (test code = 132 mmol/L 135-145 L 9102455431) K (test code = 4.4 mmol/L 3.5-5 4075353475) CL (test code = 98 mmol/L 98-108 3010903512) CO2 TOTAL (test code = 19 mmol/L 23-31 L 0499966615) AGAP (test code = 2-16 8357743189) BUN (test code = 11 mg/dL 7-23 9203275280) GLUCOSE (test code = 519 mg/dL 70-110 HH 6299168341) CREATININE (test code = 0.55 mg/dL 0.6-1.25 L 5180477712) CALCIUM (test code = 9.5 mg/dL 8.6-10.6 4727125828) eGFR (test code = mL/min/1.73m2 4531277287) ARPITA (test code = ARPITA) Association of [...] tests). Lab Interpretation Abnormal (test code = 26475-6) [facility] WITH [id number] 22:45:19 Test Item Value Reference Range Interpretation Comments WBC (test code = See_Comment [Automated 2187-2) message] The sy stem which generated this result transmitted reference range : 4.20 - 10.70 10*3/?L. The reference range was not used to interpret this result as normal/abnormal . RBC (test code = See_Comment [Automated 489-8) message] The sy stem which generated this [...] RDW-SD (test code = 41.7 fL 38.5-51.6 54890-2) RDW-CV (test code = 13.6 % 12.1-15.4 788-0) PLT (test code = See_Comment H [Automated 777-3) message] The sy stem which generated this result transmitted reference range : 150 - 328 10*3/ ?L. The reference r boubacar was not used to interpret this result as normal/abnormal . MPV (test code = 10.6 fL 9.8-13 43430-3) NRBC/100 WBC (test See_Comment [Automat ed code = 4346642133) message] The system which generated this result transmitted reference range : 0.0 - 10.0 /100 WBCs. The refer ence range was not u sed to interpret th is result as normal/abnormal . NRBC x10^3 (test code See_Comment [Auto mated = 1281859916) message] The s ystem which generated this result transmitted reference range : 10*3/?L. The reference range was not used to interpret this result as normal/abnormal . GRAN MAT (NEUT) % 66.6 % (test code = 770-8) IMM GRAN % (test code 0.40 % = 8944787541) LYMPH % (test code = 20.5 % 736-9) MONO % (test code = 10.9 % 5905-5) EOS % (test code = 1.5 % 713-8) BASO % (test code = 0.1 % 706-2) GRAN MAT x10^3(ANC) 4.88 10*3/uL 1.99-6.95 (test code = 5734122178) IMM GRAN x10^3 (test 0.03 10*3/uL 0-0.06 code = 2518532955) LYMPH x10^3 (test code 1.50 10*3/uL 1.09-3.23 = 731-0) MONO x10^3 (test code 0.80 10*3/uL 0.36-1.02 = 742-7) EOS x10^3 (test code = 0.11 10*3/uL 0.06-0.53 711-2) BASO x10^3 (test code 0.01-0.09 = 704-7) Lab Interpretation Abnormal (test code = 86430-8) [facility] WITH [id number] 11:05:43 Test Item Value Reference Range Interpretation Comments WBC (test code = See_Comment H [Automated 0190-2) message] The sy stem which generated this result transmitted reference range : 4.20 - 10.70 10*3/?L. The reference range was not used to interpret this result as normal/abnormal . RBC (test code = See_Comment [Automated 489-8) message] The sy stem which generated this [...] RDW-SD (test code = 41.7 fL 38.5-51.6 01922-5) RDW-CV (test code = 13.4 % 12.1-15.4 788-0) PLT (test code = See_Comment H [Automated 777-3) message] The sy stem which generated this result transmitted reference range : 150 - 328 10*3/ ?L. The reference r boubacar was not used to interpret this result as normal/abnormal . MPV (test code = 10.3 fL 9.8-13.0 49924-3) NRBC/100 WBC (test See_Comment [Automat ed code = 9866655111) message] The system which generated this result transmitted reference range : 0.0 - 10.0 /100 WBCs. The refer ence range was not u sed to interpret th is result as normal/abnormal . NRBC x10^3 (test code <0.01 See_Comment [Auto mated = 9656768364) message] The s ystem which generated this result transmitted reference range : 10*3/?L. The reference range was not used to interpret this result as normal/abnormal . GRAN MAT (NEUT) % 71.2 % (test code = 770-8) IMM GRAN % (test code 1.30 % = 2060516469) LYMPH % (test code = 18.2 % 736-9) MONO % (test code = 7.1 % 5905-5) EOS % (test code = 1.9 % 713-8) BASO % (test code = 0.3 % 706-2) GRAN MAT x10^3(ANC) 8.37 10*3/uL 1.99-6.95 H (test code = 6875342358) IMM GRAN x10^3 (test 0.15 10*3/uL 0.00-0.06 H code = 2996421223) LYMPH x10^3 (test code 2.14 10*3/uL 1.09-3.23 = 731-0) MONO x10^3 (test code 0.84 10*3/uL 0.36-1.02 = 742-7) EOS x10^3 (test code = 0.22 10*3/uL 0.06-0.53 711-2) BASO x10^3 (test code 0.04 10*3/uL 0.01-0.09 = 704-7) Lab Interpretation Abnormal (test code = 89355-0) [facility]. METABOLIC PANEL (68245)2022-01-17 11:03:21 Test Item Value Reference Range Interpretation Comments NA (test code = 133 mmol/L 135-145 L 3413502222) K (test code = 4.3 mmol/L 3.5-5.0 8828816272) CL (test code = 99 mmol/L 98-108 5656606009) CO2 TOTAL (test code = 20 mmol/L 23-31 L 1907092367) AGAP (test code = 2-16 1867567508) BUN (test code = 11 mg/dL 7-23 5165737550) GLUCOSE (test code = 357 mg/dL 70-110 H 0826815015) CREATININE (test code = 0.52 mg/dL 0.60-1.25 L 9950929019) TOTAL BILI (test code = 0.7 mg/dL 0.1-1.2 6745414730) CALCIUM (test code = 9.6 mg/dL 8.6-10.6 1165169626) T PROTEIN (test code = 7.5 g/dL 6.3-8.2 2884950125) ALBUMIN (test code = 4.2 g/dL 3.5-5.0 4913383869) ALK PHOS (test code = 185 U/L 34-122 H 0671474837) ALTv (test code = 78 U/L 5-50 H 1742-6) AST(SGOT) (test code = 18 U/L 13-40 6520050244) eGFR (test code = mL/min/1.73m2 4323780180) ARPITA (test code = ARPITA) Association of [...] tests). Lab Interpretation Abnormal (test code = 05187-5) [facility] 11:02:41 Test Item Value Reference Range Interpretation Comments LIPASE (test code = 9029776115) 63 U/L 0-220 Lab Interpretation (test code = Normal 98403-4) [facility] GLUCOSE (AUTOMATED)2022-01-12 22:54:04 Test Item Value Reference Range Interpretation Comments POCT GLU (test code = 7260585964) 361 mg/dL 70-110 H Lab Interpretation (test code = Abnormal 83622-1) [facility] GLUCOSE (AUTOMATED)2022-01-12 12:19:07 Test Item Value Reference Range Interpretation Comments POCT GLU (test code = 7852872082) 390 mg/dL 70-110 H Lab Interpretation (test code = Abnormal 44665-7) [facility] GLUCOSE (AUTOMATED)2022-01-12 04:48:35 Test Item Value Reference Range Interpretation Comments POCT GLU (test code = 6985316529) 412 mg/dL 70-110 H Lab Interpretation (test code = Abnormal 73986-7) [facility] GLUCOSE (AUTOMATED)2022-01-12 01:44:33 Test Item Value Reference Range Interpretation Comments POCT GLU (test code = 5247771469) 376 mg/dL 70-110 H Lab Interpretation (test code = Abnormal 66622-6) [facility] GLUCOSE (AUTOMATED)2022-01-11 21:51:37 Test Item Value Reference Range Interpretation Comments POCT GLU (test code = 4226120623) 267 mg/dL 70-110 H Lab Interpretation (test code = Abnormal 01799-4) [facility] GLUCOSE (AUTOMATED)2022-01-11 17:05:21 Test Item Value Reference Range Interpretation Comments POCT GLU (test code = 0365983238) 377 mg/dL 70-110 H Lab Interpretation (test code = Abnormal 63158-8) [facility] GLUCOSE (AUTOMATED)2022-01-11 13:10:54 Test Item Value Reference Range Interpretation Comments POCT GLU (test code = 3302863029) 495 mg/dL 70-110 HH Lab Interpretation (test code = Abnormal 76228-5) [facility] GLUCOSE (AUTOMATED)2022-01-11 08:34:04 Test Item Value Reference Range Interpretation Comments POCT GLU (test code = 6746933191) 427 mg/dL 70-110 H Lab Interpretation (test code = Abnormal 44798-3) [facility] GLUCOSE (AUTOMATED)2022-01-11 05:46:02 Test Item Value Reference Range Interpretation Comments POCT GLU (test code = 7446565204) 451 mg/dL 70-110 HH Lab Interpretation (test code = Abnormal 84261-2) [facility] GLUCOSE (AUTOMATED)2022-01-11 02:44:38 Test Item Value Reference Range Interpretation Comments POCT GLU (test code = 1945642483) 429 mg/dL 70-110 H Lab Interpretation (test code = Abnormal 04420-0) [facility] GLUCOSE (AUTOMATED)2022-01-10 22:38:24 Test Item Value Reference Range Interpretation Comments POCT GLU (test code = 8263233966) 404 mg/dL 70-110 H Lab Interpretation (test code = Abnormal 52116-1) [facility] GLUCOSE (AUTOMATED)2022-01-10 18:05:20 Test Item Value Reference Range Interpretation Comments POCT GLU (test code = 3526717509) 423 mg/dL 70-110 H Lab Interpretation (test code = Abnormal 80409-7) [facility] METABOLIC PANEL (NA, K, CL, CO2, GLUCOSE, BUN, CREATININE, CA)2022-01-10 14:56:25 Test Item Value Reference Range Interpretation Comments NA (test code = 135 mmol/L 135-145 6902610521) K (test code = 4.0 mmol/L 3.5-5.0 6609915206) CL (test code = 102 mmol/L 98-108 3396872556) CO2 TOTAL (test code = 22 mmol/L 23-31 L 0787767233) AGAP (test code = 2-16 3791652456) BUN (test code = 13 mg/dL 7-23 0087420590) GLUCOSE (test code = 547 mg/dL 70-110 2746817495) CREATININE (test code = 0.65 mg/dL 0.60-1.25 5862447127) CALCIUM (test code = 8.6 mg/dL 8.6-10.6 8230386667) eGFR (test code = mL/min/1.73m2 3269632319) ARPITA (test code = ARPITA) Association of [...] tests). Lab Interpretation Abnormal (test code = 94034-5) [facility] GLUCOSE (AUTOMATED)2022-01-10 13:36:27 Test Item Value Reference Range Interpretation Comments POCT GLU (test code = 8175893407) 526 mg/dL 70-110 HH Lab Interpretation (test code = Abnormal 29190-3) [facility] GLUCOSE (AUTOMATED)2022-01-10 12:52:44 Test Item Value Reference Range Interpretation Comments POCT GLU (test code = 4209455562) >600 70-110 HH Lab Interpretation (test code = Abnormal 45801-5) [facility] GLUCOSE (AUTOMATED)2022-01-10 12:52:44 Test Item Value Reference Range Interpretation Comments POCT GLU (test code = 8055252699) >600 70-110 HH Lab Interpretation (test code = Abnormal 96681-1) [facility] GLUCOSE (AUTOMATED)2022-01-10 11:02:02 Test Item Value Reference Range Interpretation Comments POCT GLU (test code = 6375235104) 521 mg/dL 70-110 HH Lab Interpretation (test code = Abnormal 99018-4) [facility] GLUCOSE (AUTOMATED)2022-01-10 07:22:18 Test Item Value Reference Range Interpretation Comments POCT GLU (test code = 4911461482) 534 mg/dL 70-110 HH Lab Interpretation (test code = Abnormal 16190-4) [facility] METABOLIC PANEL (NA, K, CL, CO2, GLUCOSE, BUN, CREATININE, CA)2022-01-10 06:34:51 Test Item Value Reference Range Interpretation Comments NA (test code = 133 mmol/L 135-145 L 5874080286) K (test code = 4.9 mmol/L 3.5-5.0 Slight 1903833063) hemolysis CL (test code = 96 mmol/L 98-108 L 6871943604) CO2 TOTAL (test code 21 mmol/L 23-31 L = 6711898261) AGAP (test code = 2-16 6340831292) BUN (test code = 12 mg/dL 7-23 Slight 8527980406) hemolysis GLUCOSE (test code = 639 mg/dL 70-110 HH 7326459028) CREATININE (test code 0.46 mg/dL 0.60-1.25 L = 5596013707) CALCIUM (test code = 9.7 mg/dL 8.6-10.6 5361139295) eGFR (test code = mL/min/1.73m2 1674866540) ARPITA (test code = ARPITA) Association of [...] tests). Lab Interpretation Abnormal (test code = 91690-2) [facility]. METABOLIC PANEL ([id number])2022-01-10 02:59:57 Test Item Value Reference Range Interpretation Comments NA (test code = 126 mmol/L 135-145 L 2917850692) K (test code = 5.2 mmol/L 3.5-5.0 H 3972523020) CL (test code = 89 mmol/L 98-108 L 5058822016) CO2 TOTAL (test code = 20 mmol/L 23-31 L 4159448570) AGAP (test code = 2-16 H 9092632606) BUN (test code = 12 mg/dL 7-23 9783266988) GLUCOSE (test code = 856 mg/dL 70-110 HH 5581630917) CREATININE (test code = 0.49 mg/dL 0.60-1.25 L 8295188271) TOTAL BILI (test code = 0.7 mg/dL 0.1-1.5 8998851103) CALCIUM (test code = 10.2 mg/dL 8.6-10.6 8076359516) T PROTEIN (test code = 8.2 g/dL 6.3-8.2 7340140613) ALBUMIN (test code = 4.5 g/dL 3.5-5.0 6963772132) ALK PHOS (test code = 186 U/L 34-122 H 5512747968) ALTv (test code = 27 U/L 5-50 1742-6) AST(SGOT) (test code = 18 U/L 13-40 8283381267) eGFR (test code = mL/min/1.73m2 0886102445) ARPITA (test code = ARPITA) Association of [...] tests). Lab Interpretation Abnormal (test code = 97344-3) [facility] Test Item Value Reference Range Interpretation Comments LIPASE (test code = 9270409322) 146 U/L 0-220 Lab Interpretation (test code = Normal 06663-7) [facility] WITH [id number] 02:34:07 Test Item Value Reference Range Interpretation [...] RDW-SD (test code = 42.0 fL 38.5-51.6 98030-1) RDW-CV (test code = 13.5 % 12.1-15.4 788-0) PLT (test code = See_Comment H [Automated 777-3) message] The sy stem which generated this result transmitted reference range : 150 - 328 10*3/ ?L. The reference r boubacar was not used to interpret this result as normal/abnormal . MPV (test code = 10.5 fL 9.8-13.0 25724-6) NRBC/100 WBC (test See_Comment [Automat ed code = 0112158355) message] The system which generated this result transmitted reference range : 0.0 - 10.0 /100 WBCs. The refer ence range was not u sed to interpret th is result as normal/abnormal . NRBC x10^3 (test code <0.01 See_Comment [Auto mated = 0392721193) message] The s [employer] which generated this result transmitted reference range : 10*3/?L. The reference range was not used to interpret this result as normal/abnormal . GRAN MAT (NEUT) % 67.5 % (test code = 770-8) IMM GRAN % (test code 0.70 % = 6538961287) LYMPH % (test code = 21.7 % 736-9) MONO % (test code = 8.4 % 5905-5) EOS % (test code = 1.3 % 713-8) BASO % (test code = 0.4 % 706-2) GRAN MAT x10^3(ANC) 6.61 10*3/uL 1.99-6.95 (test code = 0948447971) IMM GRAN x10^3 (test 0.07 10*3/uL 0.00-0.06 H code = 6623866115) LYMPH x10^3 (test code 2.12 10*3/uL 1.09-3.23 = 731-0) MONO x10^3 (test code 0.82 10*3/uL 0.36-1.02 = 742-7) EOS x10^3 (test code = 0.13 10*3/uL 0.06-0.53 711-2) BASO x10^3 (test code 0.04 10*3/uL 0.01-0.09 = 704-7) Lab Interpretation Abnormal (test code = 60053-2) [id number] (ALB,T.PRO,BILI T,BU/BC,ALT,AST,ALK PHOS)2022-01-06 13:57:09 Test Item Value Reference Range Interpretation Comments TOTAL BILI (test code = 5164486081) 0.7 mg/dL 0.1-1.1 BILI UNCON (test code = 1295937218) 0.3 mg/dL 0.1-1.1 BILI CONJ (test code = 0578586642) 0.0 mg/dL 0.0-0.3 T PROTEIN (test code = 6988817895) 7.5 g/dL 6.3-8.2 ALBUMIN (test code = 7549719346) 3.8 g/dL 3.5-5.0 ALK PHOS (test code = 4202835849) 161 U/L 34-122 H ALTv (test code = 1742-6) 44 U/L 5-50 AST(SGOT) (test code = 4002593338) 47 U/L 13-40 H Lab Interpretation (test code = Abnormal 12313-1) [facility] METABOLIC PANEL (NA, K, CL, CO2, GLUCOSE, BUN, CREATININE, CA)2022-01-06 10:48:59 Test Item Value Reference Range Interpretation Comments NA (test code = 136 mmol/L 135-145 5668516533) K (test code = 3.8 mmol/L 3.5-5.0 5361258127) CL (test code = 101 mmol/L 98-108 9494366959) CO2 TOTAL (test code = 22 mmol/L 23-31 L 4608748604) AGAP (test code = 2-16 2072273126) BUN (test code = 16 mg/dL 7-23 2760909333) GLUCOSE (test code = 358 mg/dL 70-110 H 1110960440) CREATININE (test code = 0.63 mg/dL 0.60-1.25 8230512157) CALCIUM (test code = 9.2 mg/dL 8.6-10.6 8317300736) eGFR (test code = mL/min/1.73m2 6289386092) ARPITA (test code = ARPITA) Association of [...] tests). Lab Interpretation Abnormal (test code = 53916-0) [facility] WITH [id number] 10:01:35 Test Item Value Reference Range Interpretation Comments WBC (test code = See_Comment [Automated 2090-2) message] The sy stem which generated this [...] RDW-SD (test code = 41.6 fL 38.5-51.6 24997-9) RDW-CV (test code = 13.4 % 12.1-15.4 788-0) PLT (test code = See_Comment H [Automated 777-3) message] The sy stem which generated this result transmitted reference range : 150 - 328 10*3/ ?L. The reference r boubacar was not used to interpret this result as normal/abnormal . MPV (test code = 11.0 fL 9.8-13.0 39130-9) NRBC/100 WBC (test See_Comment [Automat ed code = 7722259526) message] The system which generated this result transmitted reference range : 0.0 - 10.0 /100 WBCs. The refer ence range was not u sed to interpret th is result as normal/abnormal . NRBC x10^3 (test code <0.01 See_Comment [Auto mated = 4974446265) message] The s ystem which generated this result transmitted reference range : 10*3/?L. The reference range was not used to interpret this result as normal/abnormal . GRAN MAT (NEUT) % 62.6 % (test code = 770-8) IMM GRAN % (test code 0.40 % = 5470370810) LYMPH % (test code = 23.2 % 736-9) MONO % (test code = 9.6 % 5905-5) EOS % (test code = 3.8 % 713-8) BASO % (test code = 0.4 % 706-2) GRAN MAT x10^3(ANC) 4.76 10*3/uL 1.99-6.95 (test code = 1116821734) IMM GRAN x10^3 (test 0.03 10*3/uL 0.00-0.06 code = 2211656798) LYMPH x10^3 (test code 1.76 10*3/uL 1.09-3.23 = 731-0) MONO x10^3 (test code 0.73 10*3/uL 0.36-1.02 = 742-7) EOS x10^3 (test code = 0.29 10*3/uL 0.06-0.53 711-2) BASO x10^3 (test code 0.03 10*3/uL 0.01-0.09 = 704-7) Lab Interpretation Abnormal (test code = 26544-7) [facility]. METABOLIC PANEL (36887)2022-01-05 04:36:59 Test Item Value Reference Range Interpretation Comments NA (test code = 138 mmol/L 135-145 4598934169) K (test code = 5.4 mmol/L 3.5-5.0 H 8602748840) CL (test code = 98 mmol/L 98-108 7849693061) CO2 TOTAL (test code = 17 mmol/L 23-31 L 7556448110) AGAP (test code = 2-16 H 9190526949) BUN (test code = 19 mg/dL 7-23 5981109852) GLUCOSE (test code = 469 mg/dL 70-110 HH 0662313018) CREATININE (test code = 0.74 mg/dL 0.60-1.25 8826366630) TOTAL BILI (test code = 1.0 mg/dL 0.1-1.7 4881577710) CALCIUM (test code = 10.1 mg/dL 8.6-10.6 7726400040) T PROTEIN (test code = 8.2 g/dL 6.3-8.2 6949344635) ALBUMIN (test code = 4.6 g/dL 3.5-5.0 7150166574) ALK PHOS (test code = 208 U/L 34-122 H 1134936508) ALTv (test code = 51 U/L 5-50 H 1742-6) AST(SGOT) (test code = 18 U/L 13-40 4356200270) eGFR (test code = mL/min/1.73m2 2226356106) ARPITA (test code = ARPITA) Association of [...] tests). Lab Interpretation Abnormal (test code = 42576-9) [facility] Test Item Value Reference Range Interpretation Comments LIPASE (test code = 8106742876) 137 U/L 0-220 Lab Interpretation (test code = Normal 01328-0) [facility] [id number] 04:07:59 Test Item Value Reference Range Interpretation Comments WBC (test code = See_Comment H [Automated 9890-2) message] The sy stem which generated this result transmitted reference range : 4.20 - 10.70 10*3/?L. The reference range was not used to interpret this result as normal/abnormal . RBC (test code = See_Comment H [Automated 809-8) message] The sy stem which generated this [...] RDW-SD (test code = 42.6 fL 38.5-51.6 29130-5) RDW-CV (test code = 13.6 % 12.1-15.4 788-0) PLT (test code = See_Comment H [Automated 777-3) message] The sy stem which generated this result transmitted reference range : 150 - 328 10*3/ ?L. The reference r boubacar was not used to interpret this result as normal/abnormal . MPV (test code = 10.7 fL 9.8-13.0 14710-1) NRBC/100 WBC (test See_Comment [Automat ed code = 8072530098) message] The system which generated this result transmitted reference range : 0.0 - 10.0 /100 WBCs. The refer ence range was not u sed to interpret th is result as normal/abnormal . NRBC x10^3 (test code <0.01 See_Comment [Auto mated = 2640297115) message] The s ystem which generated this result transmitted reference range : 10*3/?L. The reference range was not used to interpret this result as normal/abnormal . GRAN MAT (NEUT) % 74.2 % (test code = 770-8) IMM GRAN % (test code 0.50 % = 1138775738) LYMPH % (test code = 14.8 % 736-9) MONO % (test code = 8.3 % 5905-5) EOS % (test code = 1.9 % 713-8) BASO % (test code = 0.3 % 706-2) GRAN MAT x10^3(ANC) 8.01 10*3/uL 1.99-6.95 H (test code = 6541814486) IMM GRAN x10^3 (test 0.05 10*3/uL 0.00-0.06 code = 8846734395) LYMPH x10^3 (test code 1.59 10*3/uL 1.09-3.23 = 731-0) MONO x10^3 (test code 0.89 10*3/uL 0.36-1.02 = 742-7) EOS x10^3 (test code = 0.20 10*3/uL 0.06-0.53 711-2) BASO x10^3 (test code 0.03 10*3/uL 0.01-0.09 = 704-7) Lab Interpretation Abnormal (test code = 61069-8) [facility] GLUCOSE (AUTOMATED)2021-12-22 17:25:00 Test Item Value Reference Range Interpretation Comments POCT GLU (test code = 8283401156) 249 mg/dL 70-110 H Lab Interpretation (test code = Abnormal 65482-3) [facility] GLUCOSE (AUTOMATED)2021-12-22 12:54:01 Test Item Value Reference Range Interpretation Comments POCT GLU (test code = 3907199085) 188 mg/dL 70-110 H Lab Interpretation (test code = Abnormal 61626-5) [facility] METABOLIC PANEL (NA, K, CL, CO2, GLUCOSE, BUN, CREATININE, CA)2021-12-22 11:48:23 Test Item Value Reference Range Interpretation Comments NA (test code = 137 mmol/L 135-145 2470352527) K (test code = 4.3 mmol/L 3.5-5.0 4768019672) CL (test code = 105 mmol/L 98-108 7214870354) CO2 TOTAL (test code = 23 mmol/L 23-31 7394581482) AGAP (test code = 2-16 0852982625) BUN (test code = 19 mg/dL 7-23 3054664027) GLUCOSE (test code = 243 mg/dL 70-110 H 7602735637) CREATININE (test code = 0.50 mg/dL 0.60-1.25 L 3288298503) CALCIUM (test code = 8.9 mg/dL 8.6-10.6 3338708558) eGFR (test code = mL/min/1.73m2 0036744220) ARPITA (test code = ARPITA) Association of [...] tests). Lab Interpretation Abnormal (test code = 88091-7) [facility]48[facility]23 Test Item Value Reference Range Interpretation Comments MAGNESIUM (test code = 4123187678) 2.1 mg/dL 1.7-2.4 Lab Interpretation (test code = Normal 46225-8) [facility] [id number] 11:09:44 Test Item Value Reference Range Interpretation Comments WBC (test code = See_Comment [Automated message] 2690-2) The system [employer] generated this result transmitted ref erence range: 4.20 - 1 0.70 10*3/?L. The re ference range was not u sed to interpret this result as normal/abnor mal. RBC (test code = See_Comment [Automated message] 999-8) The system [employer] generated this result transmitted ref erence range: [...] RDW-SD (test code 43.6 fL 38.5-51.6 = 19122-3) RDW-CV (test code 13.7 % 12.1-15.4 = 788-0) PLT (test code = See_Comment [Automated message] 777-3) The system whic h generated this result transmitted ref erence range: 150 - 32 8 10*3/?L. The re ference range was not u sed to interpret this result as normal/abnor mal. MPV (test code = 11.0 fL 9.8-13.0 35153-5) NRBC/100 WBC (test See_Comment [Automat ed message] code = 8132086615) The syste m which generated this result transmitted ref erence range: 0.0 - 10 .0 /100 WBCs. The refer ence range was not u sed to interpret this result as normal/abnor mal. NRBC x10^3 (test <0.01 See_Comment [Automated message] code = 7688878931) The syste m which generated this result transmitted ref erence range: 10*3/?L. The reference range was not used to interpr et this result as normal/abnormal . GRAN MAT (NEUT) % 57.9 % (test code = 770-8) IMM GRAN % (test 0.60 % code = 0401586776) LYMPH % (test code 30.7 % = 736-9) MONO % (test code 8.5 % = 5905-5) EOS % (test code = 2.0 % 713-8) BASO % (test code 0.3 % = 706-2) GRAN MAT 5.14 10*3/uL 1.99-6.95 x10^3(ANC) (test code = 9137762066) IMM GRAN x10^3 0.05 10*3/uL 0.00-0.06 (test code = 6702873926) LYMPH x10^3 (test 2.73 10*3/uL 1.09-3.23 code = 731-0) MONO x10^3 (test 0.76 10*3/uL 0.36-1.02 code = 742-7) EOS x10^3 (test 0.18 10*3/uL 0.06-0.53 code = 711-2) BASO x10^3 (test 0.03 10*3/uL 0.01-0.09 code = 704-7) [facility] GLUCOSE (AUTOMATED)2021-12-22 10:34:14 Test Item Value Reference Range Interpretation Comments POCT GLU (test code = 4956734466) 230 mg/dL 70-110 H Lab Interpretation (test code = Abnormal 61148-3) [facility] GLUCOSE (AUTOMATED)2021-12-22 05:56:50 Test Item Value Reference Range Interpretation Comments POCT GLU (test code = 4693601515) 314 mg/dL 70-110 H Lab Interpretation (test code = Abnormal 87021-9) [facility] GLUCOSE (AUTOMATED)2021-12-22 04:40:22 Test Item Value Reference Range Interpretation Comments POCT GLU (test code = 0770921990) 324 mg/dL 70-110 H Lab Interpretation (test code = Abnormal 68586-8) [facility] GLUCOSE (AUTOMATED)2021-12-22 02:37:33 Test Item Value Reference Range Interpretation Comments POCT GLU (test code = 4773162111) 296 mg/dL 70-110 H Lab Interpretation (test code = Abnormal 68080-7) [facility] GLUCOSE (AUTOMATED)2021-12-22 01:05:02 Test Item Value Reference Range Interpretation Comments POCT GLU (test code = 4089033081) 319 mg/dL 70-110 H Lab Interpretation (test code = Abnormal 25219-4) [facility] GLUCOSE (AUTOMATED)2021-12-21 21:59:09 Test Item Value Reference Range Interpretation Comments POCT GLU (test code = 0276672864) 257 mg/dL 70-110 H Lab Interpretation (test code = Abnormal 59581-0) [facility] GLUCOSE (AUTOMATED)2021-12-21 17:21:41 Test Item Value Reference Range Interpretation Comments POCT GLU (test code = 6882647802) 214 mg/dL 70-110 H Lab Interpretation (test code = Abnormal 48761-9) [facility] GLUCOSE (AUTOMATED)2021-12-21 13:04:04 Test Item Value Reference Range Interpretation Comments POCT GLU (test code = 2649853711) 234 mg/dL 70-110 H Lab Interpretation (test code = Abnormal 96787-5) [facility] METABOLIC PANEL (NA, K, CL, CO2, GLUCOSE, BUN, CREATININE, CA)2021-12-21 12:23:33 Test Item Value Reference Range Interpretation Comments NA (test code = 136 mmol/L 135-145 2785745529) K (test code = 4.1 mmol/L 3.5-5.0 8766776266) CL (test code = 109 mmol/L 98-108 H 6622143644) CO2 TOTAL (test code = 20 mmol/L 23-31 L 6353785960) AGAP (test code = 2-16 2044287138) BUN (test code = 16 mg/dL 7-23 5720842716) GLUCOSE (test code = 281 mg/dL 70-110 H 5670427212) CREATININE (test code = 0.50 mg/dL 0.60-1.25 L 5734017834) CALCIUM (test code = 8.3 mg/dL 8.6-10.6 L 5642608990) eGFR (test code = mL/min/1.73m2 9029888157) ARPITA (test code = ARPITA) Association of [...] tests). Lab Interpretation Abnormal (test code = 61763-0) [facility] 12:23:33 Test Item Value Reference Range Interpretation Comments MAGNESIUM (test code = 3247239653) 1.6 mg/dL 1.7-2.4 L Lab Interpretation (test code = Abnormal 78575-1) [facility] 12:23:13 Test Item Value Reference Range Interpretation Comments PHOSPHORUS (test code = 2430407611) 3.2 mg/dL 2.5-5.0 Lab Interpretation (test code = Normal 25714-5) [facility]A1C)2021-12-21 10:04:37 Test Item Value Reference Range Interpretation Comments HGB A1C (test code = 9.6 % 4.0-5.7 H 4548-4) ARPITA (test code = ARPITA) Reference RangesNormal: <5.7%Prediabetes: 5.7 - 6.4%Diabetes: > 6.5% Lab Interpretation (test Abnormal code = 71216-9) [facility] [id number] 09:29:41 Test Item Value Reference Range Interpretation Comments WBC (test code = See_Comment [Automated message] 6690-2) The system [employer] generated this result transmitted ref erence range: 4.20 - 1 0.70 10*3/?L. The re ference range was not u sed to interpret this result as normal/abnor mal. RBC (test code = See_Comment [Automated message] 789-8) The system [employer] generated this result transmitted ref erence range: [...] RDW-SD (test code 42.5 fL 38.5-51.6 = 16016-8) RDW-CV (test code 13.5 % 12.1-15.4 = 788-0) PLT (test code = See_Comment [Automated message] 777-3) The system whic h generated this result transmitted ref erence range: 150 - 32 8 10*3/?L. The re ference range was not u sed to interpret this result as normal/abnor mal. MPV (test code = 10.8 fL 9.8-13.0 74867-5) NRBC/100 WBC (test See_Comment [Automat ed message] code = 4777496005) The syste m which generated this result transmitted ref erence range: 0.0 - 10 .0 /100 WBCs. The refer ence range was not u sed to interpret this result as normal/abnor mal. NRBC x10^3 (test <0.01 See_Comment [Automated message] code = 8006995079) The syste m which generated this result transmitted ref erence range: 10*3/?L. The reference range was not used to interpr et this result as normal/abnormal . GRAN MAT (NEUT) % 58.6 % (test code = 770-8) IMM GRAN % (test 0.50 % code = 6511477607) LYMPH % (test code 31.3 % = 736-9) MONO % (test code 6.9 % = 5905-5) EOS % (test code = 2.4 % 713-8) BASO % (test code 0.3 % = 706-2) GRAN MAT 5.39 10*3/uL 1.99-6.95 x10^3(ANC) (test code = 5858048004) IMM GRAN x10^3 0.05 10*3/uL 0.00-0.06 (test code = 6442163627) LYMPH x10^3 (test 2.89 10*3/uL 1.09-3.23 code = 731-0) MONO x10^3 (test 0.64 10*3/uL 0.36-1.02 code = 742-7) EOS x10^3 (test 0.22 10*3/uL 0.06-0.53 code = 711-2) BASO x10^3 (test 0.03 10*3/uL 0.01-0.09 code = 704-7) [facility] GLUCOSE (AUTOMATED)2021-12-21 09:06:33 Test Item Value Reference Range Interpretation Comments POCT GLU (test code = 4192818367) 206 mg/dL 70-110 H Lab Interpretation (test code = Abnormal 45591-6) [facility] GLUCOSE (AUTOMATED)2021-12-21 04:38:41 Test Item Value Reference Range Interpretation Comments POCT GLU (test code = 6829401841) 272 mg/dL 70-110 H Lab Interpretation (test code = Abnormal 21955-8) [facility] GLUCOSE (AUTOMATED)2021-12-21 01:14:47 Test Item Value Reference Range Interpretation Comments POCT GLU (test code = 6000260197) 256 mg/dL 70-110 H Lab Interpretation (test code = Abnormal 59234-2) [facility] GLUCOSE (AUTOMATED)2021-12-20 21:11:19 Test Item Value Reference Range Interpretation Comments POCT GLU (test code = 5448509487) 254 mg/dL 70-110 H Lab Interpretation (test code = Abnormal 51503-0) [facility] GLUCOSE (AUTOMATED)2021-12-20 17:10:33 Test Item Value Reference Range Interpretation Comments POCT GLU (test code = 6082683047) 350 mg/dL 70-110 H Lab Interpretation (test code = Abnormal 08202-4) [facility] GLUCOSE (AUTOMATED)2021-12-20 12:50:18 Test Item Value Reference Range Interpretation Comments POCT GLU (test code = 5453010915) 269 mg/dL 70-110 H Lab Interpretation (test code = Abnormal 64231-0) [facility] Metabolic Panel (NA, K, CL, CO2, GLUCOSE, BUN, CREATININE, CA)2021-12-20 10:18:27 Test Item Value Reference Range Interpretation Comments NA (test code = 137 mmol/L 135-145 1064322663) K (test code = 4.0 mmol/L 3.5-5.0 4645894174) CL (test code = 108 mmol/L 98-108 3104248684) CO2 TOTAL (test code = 23 mmol/L 23-31 9751875871) AGAP (test code = 2-16 2250663168) BUN (test code = 16 mg/dL 7-23 7449410475) GLUCOSE (test code = 386 mg/dL 70-110 H 5909909987) CREATININE (test code = 0.70 mg/dL 0.60-1.25 7071847414) CALCIUM (test code = 8.6 mg/dL 8.6-10.6 0449916299) eGFR (test code = mL/min/1.73m2 4899025983) ARPITA (test code = ARPITA) Association of [...] tests). Lab Interpretation Abnormal (test code = 02795-2) [facility] with [id number] 10:03:31 Test Item Value Reference Range Interpretation Comments WBC (test code = See_Comment [Automated message] 6690-2) The system [employer] generated this result transmitted ref erence range: 4.20 - 1 0.70 10*3/?L. The re ference range was not u sed to interpret this result as normal/abnor mal. RBC (test code = See_Comment [Automated message] 789-8) The system [employer] generated this result transmitted ref erence range: [...] RDW-SD (test code 42.5 fL 38.5-51.6 = 18523-1) RDW-CV (test code 13.5 % 12.1-15.4 = 788-0) PLT (test code = See_Comment [Automated message] 777-3) The system [employer] generated this result transmitted ref erence range: 150 - 32 8 10*3/?L. The re ference range was not u sed to interpret this result as normal/abnor mal. MPV (test code = 11.2 fL 9.8-13.0 88599-9) NRBC/100 WBC (test See_Comment [Automat ed message] code = 1924056581) The syste [employer] which generated this result transmitted ref erence range: 0.0 - 10 .0 /100 WBCs. The refer ence range was not u sed to interpret this result as normal/abnor mal. NRBC x10^3 (test <0.01 See_Comment [Automated message] code = 5021134441) The syste m which generated this result transmitted ref erence range: 10*3/?L. The reference range was not used to interpr et this result as normal/abnormal . GRAN MAT (NEUT) % 63.5 % (test code = 770-8) IMM GRAN % (test 0.30 % code = 5211757985) LYMPH % (test code 24.8 % = 736-9) MONO % (test code 8.7 % = 5905-5) EOS % (test code = 2.5 % 713-8) BASO % (test code 0.2 % = 706-2) GRAN MAT 6.05 10*3/uL 1.99-6.95 x10^3(ANC) (test code = 4714755630) IMM GRAN x10^3 0.03 10*3/uL 0.00-0.06 (test code = 1325169679) LYMPH x10^3 (test 2.37 10*3/uL 1.09-3.23 code = 731-0) MONO x10^3 (test 0.83 10*3/uL 0.36-1.02 code = 742-7) EOS x10^3 (test 0.24 10*3/uL 0.06-0.53 code = 711-2) BASO x10^3 (test <0.03 0.01-0.09 code = 704-7) [facility] GLUCOSE (AUTOMATED)2021-12-20 09:00:15 Test Item Value Reference Range Interpretation Comments POCT GLU (test code = 0760939584) 402 mg/dL 70-110 H Lab Interpretation (test code = Abnormal 86991-6) [facility] GLUCOSE (AUTOMATED)2021-12-20 04:54:36 Test Item Value Reference Range Interpretation Comments POCT GLU (test code = 1469397381) 368 mg/dL 70-110 H Lab Interpretation (test code = Abnormal 31390-4) [facility] GLUCOSE (AUTOMATED)2021-12-20 03:13:40 Test Item Value Reference Range Interpretation Comments POCT GLU (test code = 6277345604) 438 mg/dL 70-110 H Lab Interpretation (test code = Abnormal 32630-5) [facility]. METABOLIC PANEL (76541)2021-12-20 01:05:39 Test Item Value Reference Range Interpretation Comments NA (test code = 133 mmol/L 135-145 L [id number]) K (test code = 4.7 mmol/L 3.5-5.0 9672860443) CL (test code = 99 mmol/L 98-108 3278765515) CO2 TOTAL (test code = 21 mmol/L 23-31 L 7456165375) AGAP (test code = 2-16 6801199520) BUN (test code = 18 mg/dL 7-23 3036668046) GLUCOSE (test code = 660 mg/dL 70-110 HH 2787469825) CREATININE (test code = 0.64 mg/dL 0.60-1.25 4534491685) TOTAL BILI (test code = 1.0 mg/dL 0.1-1.7 2127460537) CALCIUM (test code = 9.7 mg/dL 8.6-10.6 6149731198) T PROTEIN (test code = 7.9 g/dL 6.3-8.2 7485086078) ALBUMIN (test code = 4.4 g/dL 3.5-5.0 6225578730) ALK PHOS (test code = 143 U/L 34-122 H 6479217748) ALTv (test code = 47 U/L 5-50 1742-6) AST(SGOT) (test code = 30 U/L 13-40 1256923059) eGFR (test code = mL/min/1.73m2 0510750944) ARPITA (test code = ARPITA) Association of [...] tests). Lab Interpretation Abnormal (test code = 22926-6) [facility] Test Item Value Reference Range Interpretation Comments LIPASE (test code = 2390329227) 255 U/L 0-220 H Lab Interpretation (test code = Abnormal 41105-9) [id number] 00:38:14 Test Item Value Reference Range Interpretation Comments WBC (test code = See_Comment H [Automated 6690-2) message] The sy stem which generated this result transmitted reference range : 4.20 - 10.70 10*3/?L. The reference range was not used to interpret this result as normal/abnormal . RBC (test code = See_Comment H [Automated 989-8) message] The sy stem which generated this [...] RDW-SD (test code = 43.8 fL 38.5-51.6 00475-2) RDW-CV (test code = 13.6 % 12.1-15.4 788-0) PLT (test code = See_Comment [Automated 777-3) message] The sy stem which generated this result transmitted reference range : 150 - 328 10*3/ ?L. The reference r boubacar was not used to interpret this result as normal/abnormal . MPV (test code = 11.4 fL 9.8-13.0 72736-6) NRBC/100 WBC (test See_Comment [Automat ed code = 0712343246) message] The system which generated this result transmitted reference range : 0.0 - 10.0 /100 WBCs. The refer ence range was not u sed to interpret th is result as normal/abnormal . NRBC x10^3 (test code <0.01 See_Comment [Auto mated = 2733664559) message] The s ystem which generated this result transmitted reference range : 10*3/?L. The reference range was not used to interpret this result as normal/abnormal . GRAN MAT (NEUT) % 76.0 % (test code = 770-8) IMM GRAN % (test code 0.50 % = 5809607962) LYMPH % (test code = 15.2 % 736-9) MONO % (test code = 6.5 % 5905-5) EOS % (test code = 1.6 % 713-8) BASO % (test code = 0.2 % 706-2) GRAN MAT x10^3(ANC) 8.55 10*3/uL 1.99-6.95 H (test code = 2886948133) IMM GRAN x10^3 (test 0.06 10*3/uL 0.00-0.06 code = 8584394075) LYMPH x10^3 (test code 1.71 10*3/uL 1.09-3.23 = 731-0) MONO x10^3 (test code 0.73 10*3/uL 0.36-1.02 = 742-7) EOS x10^3 (test code = 0.18 10*3/uL 0.06-0.53 711-2) BASO x10^3 (test code <0.03 0.01-0.09 = 704-7) Lab Interpretation Abnormal (test code = 92150-8) [facility] Test Item Value Reference Range Interpretation Comments MAGNESIUM (test code = 4898878653) 1.7 mg/dL 1.7-2.4 Lab Interpretation (test code = Normal 27982-2) [facility] METABOLIC PANEL (NA, K, CL, CO2, GLUCOSE, BUN, CREATININE, CA)2021-12-18 18:32:38 Test Item Value Reference Range Interpretation Comments NA (test code = 137 mmol/L 135-145 8075681380) K (test code = 4.3 mmol/L 3.5-5.0 0750468338) CL (test code = 105 mmol/L 98-108 9206830349) CO2 TOTAL (test code = 23 mmol/L 23-31 9797631001) AGAP (test code = 2-16 5435676780) BUN (test code = 17 mg/dL 7-23 1634950347) GLUCOSE (test code = 317 mg/dL 70-110 H 3918663396) CREATININE (test code = 0.57 mg/dL 0.60-1.25 L 6119677727) CALCIUM (test code = 9.3 mg/dL 8.6-10.6 2567843404) eGFR (test code = mL/min/1.73m2 1995356105) ARPITA (test code = ARPITA) Association of [...] tests). Lab Interpretation Abnormal (test code = 64307-1) [facility] WITH [id number] 18:10:18 Test Item Value Reference Range Interpretation Comments WBC (test code = See_Comment [Automated message] 0190-2) The system [employer] generated this result transmitted ref erence range: 4.20 - 1 0.70 10*3/?L. The re ference range was not u sed to interpret this result as normal/abnor mal. RBC (test code = See_Comment [Automated message] 519-8) The system [employer] generated this result transmitted ref erence range: [...] RDW-SD (test code 44.4 fL 38.5-51.6 = 54874-9) RDW-CV (test code 13.8 % 12.1-15.4 = 788-0) PLT (test code = See_Comment [Automated message] 617-3) The system [employer] generated this result transmitted ref erence range: 150 - 32 8 10*3/?L. The re ference range was not u sed to interpret this result as normal/abnor mal. MPV (test code = 10.9 fL 9.8-13.0 65248-6) NRBC/100 WBC (test See_Comment [Automat ed message] code = 3592943836) The syste m which generated this result transmitted ref erence range: 0.0 - 10 .0 /100 WBCs. The refer ence range was not u sed to interpret this result as normal/abnor mal. NRBC x10^3 (test <0.01 See_Comment [Automated message] code = 4995225566) The syste m which generated this result transmitted ref erence range: 10*3/?L. The reference range was not used to interpr et this result as normal/abnormal . GRAN MAT (NEUT) % 53.4 % (test code = 770-8) IMM GRAN % (test 0.30 % code = 5811533749) LYMPH % (test code 35.3 % = 736-9) MONO % (test code 7.4 % = 5905-5) EOS % (test code = 3.3 % 713-8) BASO % (test code 0.3 % = 706-2) GRAN MAT 3.59 10*3/uL 1.99-6.95 x10^3(ANC) (test code = 2110505139) IMM GRAN x10^3 <0.03 0.00-0.06 (test code = 6627943349) LYMPH x10^3 (test 2.37 10*3/uL 1.09-3.23 code = 731-0) MONO x10^3 (test 0.50 10*3/uL 0.36-1.02 code = 742-7) EOS x10^3 (test 0.22 10*3/uL 0.06-0.53 code = 711-2) BASO x10^3 (test <0.03 0.01-0.09 code = 704-7) [facility] GLUCOSE (AUTOMATED)2021-12-18 16:50:23 Test Item Value Reference Range Interpretation Comments POCT GLU (test code = 1529690827) 304 mg/dL 70-110 H Lab Interpretation (test code = Abnormal 55793-9) [facility] GLUCOSE (AUTOMATED)2021-12-18 12:58:13 Test Item Value Reference Range Interpretation Comments POCT GLU (test code = 5169611664) 364 mg/dL 70-110 H Lab Interpretation (test code = Abnormal 12975-9) [facility] GLUCOSE (AUTOMATED)2021-12-18 09:42:05 Test Item Value Reference Range Interpretation Comments POCT GLU (test code = 8938110173) 369 mg/dL 70-110 H Lab Interpretation (test code = Abnormal 86494-7) [facility] GLUCOSE (AUTOMATED)2021-12-18 05:09:33 Test Item Value Reference Range Interpretation Comments POCT GLU (test code = 2685964881) 332 mg/dL 70-110 H Lab Interpretation (test code = Abnormal 38817-5) [facility] GLUCOSE (AUTOMATED)2021-12-18 01:27:31 Test Item Value Reference Range Interpretation Comments POCT GLU (test code = 5226452531) 349 mg/dL 70-110 H Lab Interpretation (test code = Abnormal 58030-5) [facility] GLUCOSE (AUTOMATED)2021-12-17 21:42:26 Test Item Value Reference Range Interpretation Comments POCT GLU (test code = 5943228401) 372 mg/dL 70-110 H Lab Interpretation (test code = Abnormal 77453-4) [facility] GLUCOSE (AUTOMATED)2021-12-17 17:17:16 Test Item Value Reference Range Interpretation Comments POCT GLU (test code = 3251959182) 329 mg/dL 70-110 H Lab Interpretation (test code = Abnormal 15952-1) [facility] GLUCOSE (AUTOMATED)2021-12-17 14:09:34 Test Item Value Reference Range Interpretation Comments POCT GLU (test code = 0800687839) 350 mg/dL 70-110 H Lab Interpretation (test code = Abnormal 67610-4) [facility] GLUCOSE (AUTOMATED)2021-12-17 09:59:20 Test Item Value Reference Range Interpretation Comments POCT GLU (test code = 2489958398) 342 mg/dL 70-110 H Lab Interpretation (test code = Abnormal 18392-2) [facility] GLUCOSE (AUTOMATED)2021-12-17 01:46:05 Test Item Value Reference Range Interpretation Comments POCT GLU (test code = 5106100287) 318 mg/dL 70-110 H Lab Interpretation (test code = Abnormal 69206-8) [facility] GLUCOSE (AUTOMATED)2021-12-16 21:25:33 Test Item Value Reference Range Interpretation Comments POCT GLU (test code = 4859493053) 212 mg/dL 70-110 H Lab Interpretation (test code = Abnormal 68788-9) [facility] GLUCOSE (AUTOMATED)2021-12-16 16:27:52 Test Item Value Reference Range Interpretation Comments POCT GLU (test code = 0214856617) 226 mg/dL 70-110 H Lab Interpretation (test code = Abnormal 64443-6) [facility] GLUCOSE (AUTOMATED)2021-12-16 15:37:46 Test Item Value Reference Range Interpretation Comments POCT GLU (test code = 6911464561) 204 mg/dL 70-110 H Lab Interpretation (test code = Abnormal 63423-4) [facility] GLUCOSE (AUTOMATED)2021-12-16 14:39:25 Test Item Value Reference Range Interpretation Comments POCT GLU (test code = 0522636109) 185 mg/dL 70-110 H Lab Interpretation (test code = Abnormal 23085-6) [facility] Metabolic Panel (Na, K, Cl, CO2, Glucose, BUN, Creatinine, Ca)2021-12-16 14:07:03 Test Item Value Reference Range Interpretation Comments NA (test code = 137 mmol/L 135-145 1776245768) K (test code = 4.6 mmol/L 3.5-5.0 4620717356) CL (test code = 111 mmol/L 98-108 H 7086112380) CO2 TOTAL (test code = 22 mmol/L 23-31 L 7610798192) AGAP (test code = 2-16 0215140153) BUN (test code = 12 mg/dL 7-23 1068454711) GLUCOSE (test code = 181 mg/dL 70-110 H 1650585140) CREATININE (test code = 0.70 mg/dL 0.60-1.25 2968802577) CALCIUM (test code = 8.3 mg/dL 8.6-10.6 L 1645874139) eGFR (test code = mL/min/1.73m2 7110320666) ARPITA (test code = ARPITA) Association of [...] tests). Lab Interpretation Abnormal (test code = 29047-8) [facility] GLUCOSE (AUTOMATED)2021-12-16 13:45:48 Test Item Value Reference Range Interpretation Comments POCT GLU (test code = 3340026802) 170 mg/dL 70-110 H Lab Interpretation (test code = Abnormal 31446-4) [facility] GLUCOSE (AUTOMATED)2021-12-16 12:28:12 Test Item Value Reference Range Interpretation Comments POCT GLU (test code = 8123673727) 109 mg/dL 70-110 Lab Interpretation (test code = Normal 90526-4) [facility] GLUCOSE (AUTOMATED)2021-12-16 11:25:37 Test Item Value Reference Range Interpretation Comments POCT GLU (test code = 1764000555) 134 mg/dL 70-110 H Lab Interpretation (test code = Abnormal 07974-9) [facility] Metabolic Panel (Na, K, Cl, CO2, Glucose, BUN, Creatinine, Ca)2021-12-16 10:50:17 Test Item Value Reference Range Interpretation Comments NA (test code = 138 mmol/L 135-145 2190278977) K (test code = 5.1 mmol/L 3.5-5.0 H Slight 8148573912) hemolysis CL (test code = 110 mmol/L 98-108 H 0271292251) CO2 TOTAL (test code 23 mmol/L 23-31 = 2743892856) AGAP (test code = 2-16 2848764832) BUN (test code = 13 mg/dL 7-23 Slight 2217546387) hemolysis GLUCOSE (test code = 131 mg/dL 70-110 H 9127333869) CREATININE (test code 0.73 mg/dL 0.60-1.25 = 8181345340) CALCIUM (test code = 8.9 mg/dL 8.6-10.6 2123668009) eGFR (test code = mL/min/1.73m2 0290355729) ARPITA (test code = ARPITA) Association of [...] tests). Lab Interpretation Abnormal (test code = 75131-2) [facility] GLUCOSE (AUTOMATED)2021-12-16 10:35:11 Test Item Value Reference Range Interpretation Comments POCT GLU (test code = 9780179399) 125 mg/dL 70-110 H Lab Interpretation (test code = Abnormal 52718-0) [facility] GLUCOSE (AUTOMATED)2021-12-16 09:31:05 Test Item Value Reference Range Interpretation Comments POCT GLU (test code = 2186133469) 137 mg/dL 70-110 H Lab Interpretation (test code = Abnormal 27357-3) [facility] GLUCOSE (AUTOMATED)2021-12-16 08:28:48 Test Item Value Reference Range Interpretation Comments POCT GLU (test code = 0219188544) 168 mg/dL 70-110 H Lab Interpretation (test code = Abnormal 93746-0) [facility] GLUCOSE (AUTOMATED)2021-12-16 07:26:17 Test Item Value Reference Range Interpretation Comments POCT GLU (test code = 9566478737) 165 mg/dL 70-110 H Lab Interpretation (test code = Abnormal 82471-2) [facility] Metabolic Panel (Na, K, Cl, CO2, Glucose, BUN, Creatinine, Ca)2021-12-16 07:18:59 Test Item Value Reference Range Interpretation Comments NA (test code = 136 mmol/L 135-145 5564372005) K (test code = 5.1 mmol/L 3.5-5.0 H 1692299619) CL (test code = 108 mmol/L 98-108 9952092177) CO2 TOTAL (test code = 24 mmol/L 23-31 2796538652) AGAP (test code = 2-16 2417109949) BUN (test code = 14 mg/dL 7-23 7412933968) GLUCOSE (test code = 202 mg/dL 70-110 H 9895110167) CREATININE (test code = 0.79 mg/dL 0.60-1.25 7104962702) CALCIUM (test code = 8.9 mg/dL 8.6-10.6 7963606799) eGFR (test code = mL/min/1.73m2 3739942449) ARPITA (test code = ARPITA) Association of [...] tests). Lab Interpretation Abnormal (test code = 58910-6) [facility] 06:57:08 Test Item Value Reference Range Interpretation Comments BOH (test code = <0.1 mmol/L 4266781536) ARPITA (test code = Normal Ranges: ? ? ARPITA) Nonfasting ? Less than 0.1 mmol/L ? ? Overnight Fast ? ? ? Less than 0.4 mmol/L ? ? Fasting (1-2 weeks) ?6-8 mmol/L Test developed and characteristics determined by [facility] Laboratory Services. [facility]21-[facility]16 06:24:07 Test Item Value Reference Range Interpretation Comments POCT GLU (test code = 4235533056) 212 mg/dL 70-110 H Lab Interpretation (test code = Abnormal 74158-8) [facility] GLUCOSE (AUTOMATED)2021-12-16 05:28:19 Test Item Value Reference Range Interpretation Comments POCT GLU (test code = 3812861499) 239 mg/dL 70-110 H Lab Interpretation (test code = Abnormal 39774-8) [facility] GLUCOSE (AUTOMATED)2021-12-16 04:29:31 Test Item Value Reference Range Interpretation Comments POCT GLU (test code = 0667715389) 251 mg/dL 70-110 H Lab Interpretation (test code = Abnormal 77493-8) [facility] Metabolic Panel (Na, K, Cl, CO2, Glucose, BUN, Creatinine, Ca)2021-12-16 03:49:55 Test Item Value Reference Range Interpretation Comments NA (test code = 141 mmol/L 135-145 4915631083) K (test code = 4.2 mmol/L 3.5-5.0 5403751394) CL (test code = 108 mmol/L 98-108 4387863903) CO2 TOTAL (test code = 26 mmol/L 23-31 9842999609) AGAP (test code = 2-16 2798951956) BUN (test code = 14 mg/dL 7-23 3854073027) GLUCOSE (test code = 164 mg/dL 70-110 H 3740293283) CREATININE (test code = 0.84 mg/dL 0.60-1.25 5199444864) CALCIUM (test code = 9.3 mg/dL 8.6-10.6 4474080526) eGFR (test code = mL/min/1.73m2 8278523811) ARPITA (test code = ARPITA) Association of [...] tests). Lab Interpretation Abnormal (test code = 51655-6) [facility] GLUCOSE (AUTOMATED)2021-12-16 03:20:15 Test Item Value Reference Range Interpretation Comments POCT GLU (test code = 5676999461) 174 mg/dL 70-110 H Lab Interpretation (test code = Abnormal 31140-1) [facility] GLUCOSE (AUTOMATED)2021-12-16 02:25:54 Test Item Value Reference Range Interpretation Comments POCT GLU (test code = 4119512750) 158 mg/dL 70-110 H Lab Interpretation (test code = Abnormal 06892-7) [facility] GLUCOSE (AUTOMATED)2021-12-16 01:37:09 Test Item Value Reference Range Interpretation Comments POCT GLU (test code = 8408058048) 219 mg/dL 70-110 H Lab Interpretation (test code = Abnormal 27149-6) [facility] GLUCOSE (AUTOMATED)2021-12-16 00:19:48 Test Item Value Reference Range Interpretation Comments POCT GLU (test code = 6664391275) 345 mg/dL 70-110 H Lab Interpretation (test code = Abnormal 05607-1) [facility] GLUCOSE (AUTOMATED)2021-12-15 22:59:57 Test Item Value Reference Range Interpretation Comments POCT GLU (test code = 5199749305) 318 mg/dL 70-110 H Lab Interpretation (test code = Abnormal 01466-0) [facility] (Na, K, Cl, CO2, Glucose, BUN, Creatinine, Ca)2021-12-15 22:41:00 Test Item Value Reference Range Interpretation Comments NA (test code = 140 mmol/L 135-145 0779088635) K (test code = 3.1 mmol/L 3.5-5.0 L 6920615263) CL (test code = 116 mmol/L 98-108 H 8358663375) CO2 TOTAL (test code = 21 mmol/L 23-31 L 9891608363) AGAP (test code = 2-16 2241580336) BUN (test code = 12 mg/dL 7-23 2291959126) GLUCOSE (test code = 281 mg/dL 70-110 H 9498646879) CREATININE (test code = 0.62 mg/dL 0.60-1.25 2950848204) CALCIUM (test code = 7.2 mg/dL 8.6-10.6 L 9211298115) eGFR (test code = mL/min/1.73m2 9467717181) ARPITA (test code = ARPITA) Association of [...] tests). Lab Interpretation Abnormal (test code = 16880-0) [facility] GLUCOSE (AUTOMATED)2021-12-15 21:53:29 Test Item Value Reference Range Interpretation Comments POCT GLU (test code = 4777020211) 368 mg/dL 70-110 H Lab Interpretation (test code = Abnormal 42894-4) [facility] GLUCOSE (AUTOMATED)2021-12-15 20:41:51 Test Item Value Reference Range Interpretation Comments POCT GLU (test code = 3595153535) 458 mg/dL 70-110 HH Lab Interpretation (test code = Abnormal 58087-2) [facility] GLUCOSE (AUTOMATED)2021-12-15 19:00:13 Test Item Value Reference Range Interpretation Comments POCT GLU (test code = 4744868908) 369 mg/dL 70-110 H Lab Interpretation (test code = Abnormal 48126-2) [facility] (Na, K, Cl, CO2, Glucose, BUN, Creatinine, Ca)2021-12-15 18:32:29 Test Item Value Reference Range Interpretation Comments NA (test code = 145 mmol/L 135-145 4065353468) K (test code = 4.8 mmol/L 3.5-5.0 Slight 4307235048) hemolysis CL (test code = 112 mmol/L 98-108 H 7453301844) CO2 TOTAL (test code 26 mmol/L 23-31 = 9409980951) AGAP (test code = 2-16 6312044157) BUN (test code = 16 mg/dL 7-23 Slight 2191113509) hemolysis GLUCOSE (test code = 282 mg/dL 70-110 H 8399775769) CREATININE (test code 0.83 mg/dL 0.60-1.25 = 2157606224) CALCIUM (test code = 10.0 mg/dL 8.6-10.6 9974221690) eGFR (test code = mL/min/1.73m2 4839450367) ARPITA (test code = ARPITA) Association of [...] tests). Lab Interpretation Abnormal (test code = 89231-6) [facility] GLUCOSE (AUTOMATED)2021-12-15 17:45:09 Test Item Value Reference Range Interpretation Comments POCT GLU (test code = 4286713298) 284 mg/dL 70-110 H Lab Interpretation (test code = Abnormal 43348-7) [facility]5601[facility]13-20 16:41:13 Test Item Value Reference Range Interpretation Comments BOH (test code = 0.9 mmol/L 5723674551) ARPITA (test code = Normal Ranges: ? ? ARPITA) Nonfasting ? Less than 0.1 mmol/L ? ? Overnight Fast ? ? ? Less than 0.4 mmol/L ? ? Fasting (1-2 weeks) ?6-8 mmol/L Test developed and characteristics determined by [facility] Laboratory Services. [facility] GLUCOSE (AUTOMATED)2021-12-15 16:33:41 Test Item Value Reference Range Interpretation Comments POCT GLU (test code = 4777066702) 266 mg/dL 70-110 H Lab Interpretation (test code = Abnormal 14246-6) [facility] GLUCOSE (AUTOMATED)2021-12-15 15:30:41 Test Item Value Reference Range Interpretation Comments POCT GLU (test code = 9217531719) 294 mg/dL 70-110 H Lab Interpretation (test code = Abnormal 80760-4) [facility] GLUCOSE (AUTOMATED)2021-12-15 14:23:40 Test Item Value Reference Range Interpretation Comments POCT GLU (test code = 5195215338) 511 mg/dL 70-110 HH Lab Interpretation (test code = Abnormal 22240-5) [facility] WITHOUT [id number] 13:55:53 Test Item Value Reference Range Interpretation Comments WBC (test code = 6690-2) See_Comment H [A utomated message] The system [employer] generated this result transmit lester reference range : 4.20 - 10.70 10*3/?L. The reference range was not used to interpret this result as normal/abnormal . RBC (test code = 789-8) See_Comment H [Au tomated message] The system [employer] generated this result transmit lester reference range [...] See_Comment H [Au tomated message] The system [employer] generated this result transmit lester reference range : 150 - 328 10*3/?L. The reference range was not used to interpret this result as normal/abnormal . MPV (test code = 11.0 fL 9.8-13.0 80086-5) RDW-CV (test code = 14.2 % 12.1-15.4 788-0) RDW-SD (test code = 44.8 fL 38.5-51.6 46497-4) NRBC x10^3 (test code = <0.01 See_Comment [Au tomated message] 7511762980) The system [employer] generated this result transmit lester reference range : 10*3/?L. The reference range was not used to interpret this result as normal/abnormal . NRBC/100 WBC (test code See_Comment [Au tomated message] = 3707525914) The system [employer] generated this result transmit lester reference range : 0.0 - 10.0 /100 WBC s. The reference r boubacar was not used to interpret this result as normal/abnormal . IPF % (test code = 2983839233) Lab Interpretation (test Abnormal code = 51070-5) [facility] GLUCOSE (AUTOMATED)2021-12-15 13:34:21 Test Item Value Reference Range Interpretation Comments POCT GLU (test code = 9373599747) 538 mg/dL 70-110 HH Lab Interpretation (test code = Abnormal 73051-5) [facility] GLUCOSE (AUTOMATED)2021-12-15 13:30:43 Test Item Value Reference Range Interpretation Comments POCT GLU (test code = 3260713145) >600 70-110 HH Lab Interpretation (test code = Abnormal 52377-2) [facility] GLUCOSE (AUTOMATED)2021-12-15 13:30:43 Test Item Value Reference Range Interpretation Comments POCT GLU (test code = 6921333558) >600 70-110 HH Lab Interpretation (test code = Abnormal 78703-3) [facility] GLUCOSE (AUTOMATED)2021-12-15 13:30:43 Test Item Value Reference Range Interpretation Comments POCT GLU (test code = >600 70-110 HH Notifi ed Provider 9970182535) Lab Interpretation (test Abnormal code = 85641-1) [facility] GLUCOSE (AUTOMATED)2021-12-15 13:30:43 Test Item Value Reference Range Interpretation Comments POCT GLU (test code = 4839094613) >600 70-110 HH Lab Interpretation (test code = Abnormal 55294-3) [facility] GLUCOSE (AUTOMATED)2021-12-15 13:30:38 Test Item Value Reference Range Interpretation Comments POCT GLU (test code = 2039484245) >600 70-110 HH Lab Interpretation (test code = Abnormal 91694-2) [facility]-15 13:30:38 Test Item Value Reference Range Interpretation Comments POCT GLU (test code = 0714371556) >600 70-110 HH Lab Interpretation (test code = Abnormal 65515-8) [facility] HospitalOsmolality Wltia9693-22-37 12:37:44 Test Item Value Reference Range Interpretation Comments OSMOLALITY (test code = See_Comment HH [Au tomated message] 2692-2) The system [employer] generated this result transmitted ref erence range: 278 - 30 5 mOsm/kg. The reference range was not used to int erpret this result as normal/abnormal . Lab Interpretation (test Abnormal code = 22984-2) [facility] Metabolic Panel (Na, K, Cl, CO2, Glucose, BUN, Creatinine, Ca)2021-12-15 12:23:35 Test Item Value Reference Range Interpretation Comments NA (test code = 145 mmol/L 135-145 2867634502) K (test code = 4.4 mmol/L 3.5-5.0 1848132142) CL (test code = 109 mmol/L 98-108 H 4482227799) CO2 TOTAL (test code = 21 mmol/L 23-31 L 2798435026) AGAP (test code = 2-16 4595672929) BUN (test code = 15 mg/dL 7-23 7856735061) GLUCOSE (test code = 753 mg/dL 70-110 HH 3391146666) CREATININE (test code = 0.79 mg/dL 0.60-1.25 9422954214) CALCIUM (test code = 10.9 mg/dL 8.6-10.6 H 8980494650) eGFR (test code = mL/min/1.73m2 1934671118) ARPITA (test code = ARPITA) Association of [...] tests). Lab Interpretation Abnormal (test code = 84111-7) [facility] 12:14:56 Test Item Value Reference Range Interpretation Comments POCT GLU (test code = 9297719362) 564 mg/dL 70-110 HH Lab Interpretation (test code = Abnormal 95210-4) [facility] HospitalMagnesium Twyah7087-21-62 12:05:40 Test Item Value Reference Range Interpretation Comments MAGNESIUM (test code = 6275318933) 2.5 mg/dL 1.7-2.4 H Lab Interpretation (test code = Abnormal 15420-5) [facility] 12:05:20 Test Item Value Reference Range Interpretation Comments MAGNESIUM (test code = 1486187816) 2.5 mg/dL 1.7-2.4 H Lab Interpretation (test code = Abnormal 15775-5) [facility] HospitalPhosphorus Ildxp6213-26-75 12:05:20 Test Item Value Reference Range Interpretation Comments PHOSPHORUS (test code = 1830264309) 6.2 mg/dL 2.5-5.0 H Lab Interpretation (test code = Abnormal 87803-6) [facility] + LACTIC [id number] 05:53:48 Test Item Value Reference Range Interpretation Comments PH (test code = 7.32-7.42 3466340686) PCO2 STEVO (test code See_Comment [Automa lester = 2159871201) message] The system which generated this result transmitted reference range : 41 - 51 mmHg. T he reference range was not used to interpret this result as normal/abnormal . PO2 STEVO (test code = See_Comment HH [Autom ated 8805576987) message] The system which generated this result transmitted reference range : 25 - 40 mmHg. T he reference range was not used to interpret this result as normal/abnormal . HCO3 STEVO (test code See_Comment L [Automa lester = 3849080840) message] The system which generated this result transmitted reference range : 24 - 28 mEq/L. The reference range was not used to interpr et this result as normal/abnormal . AC VBE(BEAKER) (test mEq/L code = 6962480507) THB STEVO (test code = 17.7 g/dL 13.5-18.0 1793550332) %O2HB STEVO (test code 93.8 % 52.0-63.0 H = 8456853863) %COHB STEVO (test code 2.1 % 0.0-1.5 H = 7007198838) %METHB STEVO (test 0.1 % 0.4-1.5 L code = 8337305233) VOL%O2 STEVO (test 23.3 % 6.0-12.0 H code = 8480073018) NA (test code = 142 mmol/L 135-145 1985938472) K+ (test code = 4.4 mmol/L 3.5-5.0 5280540929) AC CA IONZ (test 5.40 mg/dL 4.50-5.30 H code = 2376704388) GLUCOSE (test code = <20 70-110 LL 7157580258) LACTIC ACID (test 3.37 mmol/L 0.50-2.20 H code = 5203110054) ARPITA (test code = *ac gluc ARPITA) unmeasurable Lab Interpretation Abnormal (test code = 02013-9) [facility] (52217)2021-12-15 04:59:53 Test Item Value Reference Range Interpretation Comments NA (test code = 140 mmol/L 135-145 1881074948) K (test code = 4.8 mmol/L 3.5-5.0 2828118659) CL (test code = 100 mmol/L 98-108 3800048410) CO2 TOTAL (test code = 20 mmol/L 23-31 L 6077269265) AGAP (test code = 2-16 H 1933881630) BUN (test code = 14 mg/dL 7-23 4415353804) GLUCOSE (test code = 1083 mg/dL 70-110 HH 0279429061) CREATININE (test code = 0.80 mg/dL 0.60-1.25 9616305367) TOTAL BILI (test code = 1.0 mg/dL 0.1-1.3 0390195942) CALCIUM (test code = 12.0 mg/dL 8.6-10.6 H 8489389330) T PROTEIN (test code = 8.1 g/dL 6.3-8.2 1003915783) ALBUMIN (test code = 4.7 g/dL 3.5-5.0 1187023049) ALK PHOS (test code = 173 U/L 34-122 H 6324225994) ALTv (test code = 36 U/L 5-50 1742-6) AST(SGOT) (test code = 18 U/L 13-40 3840645548) eGFR (test code = mL/min/1.73m2 2945911971) ARPITA (test code = ARPITA) Association of [...] tests). Lab Interpretation Abnormal (test code = 24442-7) [id number] 03:51:43 Test Item Value Reference Interpretation Comments Range TROPONIN I (test <0.012 See_Comment [Automated code = 8106252640) message] The system which generated this result [...] biotin. Lab Interpretation Normal (test code = 96440-9) [facility] [id number] 03:48:23 Test Item Value Reference Range Interpretation Comments NT-proBNP (test code 71 pg/mL See_Comment [Autom ated = 9668869024) message] The system which generated this result transmitted reference range : <=125. The reference range was not used to interpret this result as normal/abnormal . ARPITA (test code = ARPITA) Biotin has been reported to cause a negative bias, interpret results relative to patient's use of biotin. Lab Interpretation Normal (test code = 68276-9) [facility] [id number] 03:48:23 Test Item Value Reference Range Interpretation Comments NT-proBNP (test code 71 pg/mL See_Comment [Autom ated = 1297894518) message] The system which generated this result transmitted reference range : <=125. The reference range was not used to interpret this result as normal/abnormal . ARPITA (test code = ARPITA) Biotin has been reported to cause a negative bias, interpret results relative to patient's use of biotin. Lab Interpretation Normal (test code = 74339-1) [facility] 03:39:44 Test Item Value Reference Range Interpretation Comments LIPASE (test code = 1008647772) 120 U/L 0-220 Lab Interpretation (test code = Normal 68248-5) [facility] TH[facility] [id number] 03:38:23 Test Item Value Reference Range Interpretation Comments APTT Patient (test See_Comment [Automat ed code = 3173-2) message] The system which generated this result transmitted reference range : 23 - 38 Seconds . The reference range was not used to interpr et this result as normal/abnormal . ARPITA (test code = ARPITA) The [facility] patient population mean normal value for aPTT is 30 seconds. Lab Interpretation Normal (test code = 39542-1) [facility] [id number] 03:38:23 Test Item Value Reference Range Interpretation Comments APTT Patient (test See_Comment [Automat ed code = 3173-2) message] The system which generated this result transmitted reference range : 23 - 38 Seconds . The reference range was not used to interpr et this result as normal/abnormal . ARPITA (test code = ARPITA) The [facility] patient population mean normal value for aPTT is 30 seconds. Lab Interpretation Normal (test code = 33085-1) [facility] HospitalPROTHR[facility] / [id number] 03:36:22 Test Item Value Reference Range Interpretation [...] tions. Lab Interpretation (test Normal code = 88448-4) [facility] WITH [id number] 03:35:42 Test Item Value Reference Range Interpretation Comments WBC (test code = See_Comment H [Automated 5790-2) message] The system which generated this result [...] RDW-SD (test code = 44.7 fL 38.5-51.6 67467-2) RDW-CV (test code = 14.2 % 12.1-15.4 788-0) PLT (test code = See_Comment H [Automated 777-3) message] The system which generated this result transmit lester reference range : 150 - 328 10*3/ ?L. The reference range was not u sed to interpret th is result as normal/abnormal . MPV (test code = 11.5 fL 9.8-13.0 07858-9) NRBC/100 WBC (test See_Comment [Automat ed code = 8922551613) message] The system which generated this result transmit lester reference range : 0.0 - 10.0 /100 WBCs. The reference range was not used to interpret this result as normal/abnormal . NRBC x10^3 (test code <0.01 See_Comment [Auto mated = 2199176678) message] The system which generated this result transmit lester reference range : 10*3/?L. The reference range was not used to interpret this result as normal/abnormal . GRAN MAT (NEUT) % 85.2 % (test code = 770-8) IMM GRAN % (test code 0.90 % = 3308450447) LYMPH % (test code = 5.9 % 736-9) MONO % (test code = 7.8 % 5905-5) EOS % (test code = 0.0 % 713-8) BASO % (test code = 0.2 % 706-2) GRAN MAT x10^3(ANC) 12.85 10*3/uL 1.99-6.95 H (test code = 4600504853) IMM GRAN x10^3 (test 0.13 10*3/uL 0.00-0.06 H code = 9333915676) LYMPH x10^3 (test code 0.89 10*3/uL 1.09-3.23 L = 731-0) MONO x10^3 (test code 1.17 10*3/uL 0.36-1.02 H = 742-7) EOS x10^3 (test code = <0.03 0.06-0.53 L 711-2) BASO x10^3 (test code 0.03 10*3/uL 0.01-0.09 = 704-7) Lab Interpretation Abnormal (test code = 70640-5) [facility] HospitalLactic Acid Whole [id number] 03:22:23 Test Item Value Reference Range Interpretation Comments LACTIC ACID (test code = 4.52 mmol/L 0.50-2.20 H 5766699798) Lab Interpretation (test code = Abnormal 36457-7) [facility] METABOLIC PANEL (NA, K, CL, CO2, GLUCOSE, BUN, CREATININE, CA)2021-11-28 11:13:09 Test Item Value Reference Range Interpretation Comments NA (test code = 137 mmol/L 135-145 8618590320) K (test code = 4.8 mmol/L 3.5-5.0 3022299288) CL (test code = 101 mmol/L 98-108 4929370005) CO2 TOTAL (test code = 24 mmol/L 23-31 9435531779) AGAP (test code = 2-16 1245942088) BUN (test code = 17 mg/dL 7-23 3387500657) GLUCOSE (test code = 323 mg/dL 70-110 H 7185835047) CREATININE (test code = 0.56 mg/dL 0.60-1.25 L 0642913748) CALCIUM (test code = 9.6 mg/dL 8.6-10.6 6049568168) eGFR (test code = mL/min/1.73m2 1708533386) ARPITA (test code = ARPITA) Association of [...] tests). Lab Interpretation Abnormal (test code = 98469-7) [facility] WITH [id number] 10:49:07 Test Item Value Reference Range Interpretation [...] RDW-SD (test code = 46.7 fL 38.5-51.6 75960-4) RDW-CV (test code = 14.5 % 12.1-15.4 788-0) PLT (test code = See_Comment H [Automated 777-3) message] The sy stem which generated this result transmitted reference range : 150 - 328 10*3/ ?L. The reference r boubacar was not used to interpret this result as normal/abnormal . MPV (test code = 10.2 fL 9.8-13.0 99126-2) NRBC/100 WBC (test See_Comment [Automat ed code = 1704704997) message] The system which generated this result transmitted reference range : 0.0 - 10.0 /100 WBCs. The refer ence range was not u sed to interpret th is result as normal/abnormal . NRBC x10^3 (test code <0.01 See_Comment [Auto mated = 8592462916) message] The s ystem which generated this result transmitted reference range : 10*3/?L. The reference range was not used to interpret this result as normal/abnormal . GRAN MAT (NEUT) % 70.2 % (test code = 770-8) IMM GRAN % (test code 0.80 % = 0994860341) LYMPH % (test code = 18.0 % 736-9) MONO % (test code = 8.5 % 5905-5) EOS % (test code = 2.1 % 713-8) BASO % (test code = 0.4 % 706-2) GRAN MAT x10^3(ANC) 7.63 10*3/uL 1.99-6.95 H (test code = 2690277676) IMM GRAN x10^3 (test 0.09 10*3/uL 0.00-0.06 H code = 9651882386) LYMPH x10^3 (test code 1.96 10*3/uL 1.09-3.23 = 731-0) MONO x10^3 (test code 0.92 10*3/uL 0.36-1.02 = 742-7) EOS x10^3 (test code = 0.23 10*3/uL 0.06-0.53 711-2) BASO x10^3 (test code 0.04 10*3/uL 0.01-0.09 = 704-7) Lab Interpretation Abnormal (test code = 48830-3) [facility] METABOLIC PANEL (NA, K, CL, CO2, GLUCOSE, BUN, CREATININE, CA)2021-11-27 09:48:58 Test Item Value Reference Range Interpretation Comments NA (test code = 135 mmol/L 135-145 2660862518) K (test code = 4.7 mmol/L 3.5-5.0 5374086804) CL (test code = 101 mmol/L 98-108 7714320996) CO2 TOTAL (test code = 23 mmol/L 23-31 5021788614) AGAP (test code = 2-16 3106896865) BUN (test code = 18 mg/dL 7-23 8105151282) GLUCOSE (test code = 346 mg/dL 70-110 H 7838774139) CREATININE (test code = 0.64 mg/dL 0.60-1.25 3175648254) CALCIUM (test code = 9.1 mg/dL 8.6-10.6 0231519071) eGFR (test code = mL/min/1.73m2 5351383088) ARPITA (test code = ARPITA) Association of [...] tests). Lab Interpretation Abnormal (test code = 09175-3) [facility] WITH [id number] 09:06:55 Test Item Value Reference Range Interpretation Comments WBC (test code = See_Comment [Automated 1056-2) message] The sy stem which generated this result transmitted reference range : 4.20 - 10.70 10*3/?L. The reference range was not used to interpret this result as normal/abnormal . RBC (test code = See_Comment [Automated 859-3) message] The sy stem which generated this [...] RDW-SD (test code = 47.7 fL 38.5-51.6 46015-0) RDW-CV (test code = 14.6 % 12.1-15.4 788-0) PLT (test code = See_Comment [Automated 777-3) message] The sy stem which generated this result transmitted reference range : 150 - 328 10*3/ ?L. The reference r boubacar was not used to interpret this result as normal/abnormal . MPV (test code = 9.9 fL 9.8-13.0 37917-8) NRBC/100 WBC (test See_Comment [Automat ed code = 2536794184) message] The system which generated this result transmitted reference range : 0.0 - 10.0 /100 WBCs. The refer ence range was not u sed to interpret th is result as normal/abnormal . NRBC x10^3 (test code <0.01 See_Comment [Auto mated = 1161217255) message] The s ystem which generated this result transmitted reference range : 10*3/?L. The reference range was not used to interpret this result as normal/abnormal . GRAN MAT (NEUT) % 62.6 % (test code = 770-8) IMM GRAN % (test code 1.30 % = 0688218707) LYMPH % (test code = 23.2 % 736-9) MONO % (test code = 9.6 % 5905-5) EOS % (test code = 2.9 % 713-8) BASO % (test code = 0.4 % 706-2) GRAN MAT x10^3(ANC) 5.85 10*3/uL 1.99-6.95 (test code = 4401090892) IMM GRAN x10^3 (test 0.12 10*3/uL 0.00-0.06 H code = 1351534832) LYMPH x10^3 (test code 2.17 10*3/uL 1.09-3.23 = 731-0) MONO x10^3 (test code 0.90 10*3/uL 0.36-1.02 = 742-7) EOS x10^3 (test code = 0.27 10*3/uL 0.06-0.53 711-2) BASO x10^3 (test code 0.04 10*3/uL 0.01-0.09 = 704-7) Lab Interpretation Abnormal (test code = 54459-5) [facility] CULTURE [id number] 02:01:46 Test Item Value Reference Range Interpretation Comments Blood Culture-Aerobic No organisms No growth Previo us (test code = 19539-3) isolated prelim inary verified result was Culture [...] Culture-Anaerobic isolated preliminar y (test code = 06293-5) verifi ed result was Culture In Progress [...] CDT Lab Interpretation Normal (test code = 07966-1) [facility] CULTURE [id number] 02:01:46 Test Item Value Reference Range Interpretation Comments Blood Culture-Aerobic No organisms No growth Previo us (test code = 93871-2) isolated prelim inary verified result was Culture [...] Culture-Anaerobic isolated preliminar y (test code = 69783-4) verifi ed result was Culture In Progress [...] CDT Lab Interpretation Normal (test code = 46725-2) [facility] [id number] 12:18:49 Test Item Value Reference Range Interpretation Comments NT-proBNP (test code 117 pg/mL See_Comment [Autom ated = 4356478195) message] The system which generated this result transmitted reference range : <=125. The reference range was not used to interpret this result as normal/abnormal . ARPITA (test code = ARPITA) Biotin has been reported to cause a negative bias, interpret results relative to patient's use of biotin. Lab Interpretation Normal (test code = 29136-2) [facility]. METABOLIC PANEL (10875)2021-11-24 12:10:25 Test Item Value Reference Range Interpretation Comments NA (test code = 137 mmol/L 135-145 2528331971) K (test code = 4.6 mmol/L 3.5-5.0 9167733815) CL (test code = 108 mmol/L 98-108 6094665964) CO2 TOTAL (test code = 20 mmol/L 23-31 L 4340194951) AGAP (test code = 2-16 4292492918) BUN (test code = 12 mg/dL 7-23 7394262774) GLUCOSE (test code = 186 mg/dL 70-110 H 5371337523) CREATININE (test code = 0.49 mg/dL 0.60-1.25 L 8060919056) TOTAL BILI (test code = 0.7 mg/dL 0.1-1.7 4867659565) CALCIUM (test code = 8.7 mg/dL 8.6-10.6 5270136821) T PROTEIN (test code = 6.9 g/dL 6.3-8.2 0226080732) ALBUMIN (test code = 3.7 g/dL 3.5-5.0 0197485398) ALK PHOS (test code = 114 U/L 34-122 0240943932) ALTv (test code = 75 U/L 5-50 H 1742-6) AST(SGOT) (test code = 27 U/L 13-40 9648643494) eGFR (test code = mL/min/1.73m2 9705381846) ARPITA (test code = ARPITA) Association of [...] tests). Lab Interpretation Abnormal (test code = 51719-9) [facility] WITH [id number] 11:14:25 Test Item Value Reference Range Interpretation [...] RDW-SD (test code = 48.7 fL 38.5-51.6 58968-9) RDW-CV (test code = 15.0 % 12.1-15.4 788-0) PLT (test code = See_Comment [Automated 777-3) message] The sy stem which generated this result transmitted reference range : 150 - 328 10*3/ ?L. The reference r boubacar was not used to interpret this result as normal/abnormal . MPV (test code = 10.4 fL 9.8-13.0 54731-1) NRBC/100 WBC (test See_Comment [Automat ed code = 2014115818) message] The system which generated this result transmitted reference range : 0.0 - 10.0 /100 WBCs. The refer ence range was not u sed to interpret th is result as normal/abnormal . NRBC x10^3 (test code <0.01 See_Comment [Auto mated = 2692085521) message] The s ystem which generated this result transmitted reference range : 10*3/?L. The reference range was not used to interpret this result as normal/abnormal . GRAN MAT (NEUT) % 65.5 % (test code = 770-8) IMM GRAN % (test code 0.80 % = 5131032429) LYMPH % (test code = 20.9 % 736-9) MONO % (test code = 9.7 % 5905-5) EOS % (test code = 2.7 % 713-8) BASO % (test code = 0.4 % 706-2) GRAN MAT x10^3(ANC) 5.41 10*3/uL 1.99-6.95 (test code = 1616268089) IMM GRAN x10^3 (test 0.07 10*3/uL 0.00-0.06 H code = 3727249007) LYMPH x10^3 (test code 1.73 10*3/uL 1.09-3.23 = 731-0) MONO x10^3 (test code 0.80 10*3/uL 0.36-1.02 = 742-7) EOS x10^3 (test code = 0.22 10*3/uL 0.06-0.53 711-2) BASO x10^3 (test code 0.03 10*3/uL 0.01-0.09 = 704-7) Lab Interpretation Abnormal (test code = 61428-9) [facility] [id number] 13:16:44 Test Item Value Reference Range Interpretation Comments NT-proBNP (test code 157 pg/mL See_Comment H [Autom ated = 6317037936) message] The system which generated this result transmitted reference range : <=125. The reference range was not used to interpret this result as normal/abnormal . ARPITA (test code = ARPITA) Biotin has been reported to cause a negative bias, interpret results relative to patient's use of biotin. Lab Interpretation Abnormal (test code = 25300-7) [facility]OL[facility] (96291)2021-11-23 13:08:45 Test Item Value Reference Range Interpretation Comments NA (test code = 141 mmol/L 135-145 0919860135) K (test code = 4.2 mmol/L 3.5-5.0 8774820265) CL (test code = 110 mmol/L 98-108 H 9420206606) CO2 TOTAL (test code = 24 mmol/L 23-31 6785295277) AGAP (test code = 2-16 8431727878) BUN (test code = 11 mg/dL 7-23 2348598724) GLUCOSE (test code = 142 mg/dL 70-110 H 8497071160) CREATININE (test code = 0.61 mg/dL 0.60-1.25 7462320647) TOTAL BILI (test code = 0.7 mg/dL 0.1-1.6 4734200773) CALCIUM (test code = 8.5 mg/dL 8.6-10.6 L 5491692696) T PROTEIN (test code = 6.7 g/dL 6.3-8.2 2687416091) ALBUMIN (test code = 3.6 g/dL 3.5-5.0 8093444546) ALK PHOS (test code = 120 U/L 34-122 9250859805) ALTv (test code = 88 U/L 5-50 H 2-6) AST(SGOT) (test code = 27 U/L 13-40 4033004161) eGFR (test code = mL/min/1.73m2 8776604694) ARPITA (test code = ARPITA) Association of [...] tests). Lab Interpretation Abnormal (test code = 45177-5) [facility] 13:08:45 Test Item Value Reference Range Interpretation Comments MAGNESIUM (test code = 9465768490) 1.7 mg/dL 1.7-2.4 Lab Interpretation (test code = Normal 96370-6) [facility] WITH [id number] 11:57:56 Test Item Value Reference Range Interpretation [...] RDW-SD (test code = 48.9 fL 38.5-51.6 70401-3) RDW-CV (test code = 14.9 % 12.1-15.4 788-0) PLT (test code = See_Comment [Automated 777-3) message] The sy stem which generated this result transmitted reference range : 150 - 328 10*3/ ?L. The reference r boubacar was not used to interpret this result as normal/abnormal . MPV (test code = 9.4 fL 9.8-13.0 L 32351-1) NRBC/100 WBC (test See_Comment [Automat ed code = 7460476505) message] The system which generated this result transmitted reference range : 0.0 - 10.0 /100 WBCs. The refer ence range was not u sed to interpret th is result as normal/abnormal . NRBC x10^3 (test code <0.01 See_Comment [Auto mated = 5353491356) message] The s ystem which generated this result transmitted reference range : 10*3/?L. The reference range was not used to interpret this result as normal/abnormal . GRAN MAT (NEUT) % 63.9 % (test code = 770-8) IMM GRAN % (test code 0.70 % = 1506133334) LYMPH % (test code = 22.7 % 736-9) MONO % (test code = 9.6 % 5905-5) EOS % (test code = 2.7 % 713-8) BASO % (test code = 0.4 % 706-2) GRAN MAT x10^3(ANC) 4.75 10*3/uL 1.99-6.95 (test code = 7796191498) IMM GRAN x10^3 (test 0.05 10*3/uL 0.00-0.06 code = 9212898523) LYMPH x10^3 (test code 1.69 10*3/uL 1.09-3.23 = 731-0) MONO x10^3 (test code 0.71 10*3/uL 0.36-1.02 = 742-7) EOS x10^3 (test code = 0.20 10*3/uL 0.06-0.53 711-2) BASO x10^3 (test code 0.03 10*3/uL 0.01-0.09 = 704-7) Lab Interpretation Abnormal (test code = 39135-4) [facility] B12, [id number] 19:18:39 Test Item Value Reference Range Interpretation Comments VIT B12 (test code = 249 pg/mL 240-930 4019349614) ARPITA (test code = ARPITA) Biotin has been reported to cause a positive bias, interpret results relative to patient's use of biotin. Lab Interpretation (test Normal code = 45686-9) [facility] B12, [id number] 19:18:39 Test Item Value Reference Range Interpretation Comments VIT B12 (test code = 249 pg/mL 240-930 6391146640) ARPITA (test code = ARPITA) Biotin has been reported to cause a positive bias, interpret results relative to patient's use of biotin. Lab Interpretation (test Normal code = 95092-6) [facility] D, [id number] 17:30:28 Test Item Value Reference Range Interpretation Comments VIT D 25OH (test code = 16 ng/mL 25-80 L 35385-7) ARPITA (test code = ARPITA) Deficiency: <20 ng/mLInsufficiency: 20-24 ng/mLOptimal: 25-80 ng/mL Lab Interpretation (test Abnormal code = 00881-7) [facility], [id number] 17:30:28 Test Item Value Reference Range Interpretation Comments VIT D 25OH (test code = 16 ng/mL 25-80 L 90072-9) ARPITA (test code = ARPITA) Deficiency: <20 ng/mLInsufficiency: 20-24 ng/mLOptimal: 25-80 ng/mL Lab Interpretation (test Abnormal code = 57729-5) [facility]PROCALCITONIN2022-05-11 16:07:32 Test Item Value Reference Interpretation Comments Range Procalcitonin (test 0.04 ng/mL See_Comment [Automa lester code = 8642125244) message] The system which generated this result [...] lung abscess/empyema. For further information please refer to:[email or web address] Lab Interpretation Normal (test code = 73585-3) [facility] HospitalPROCALCITONIN2022-05-11 16:07:32 Test Item Value Reference Range Interpretation Comments Procalcitonin (test 0.04 ng/mL <0.07 code = 0025888949) ARPITA (test code = ARPITA) INTERPRETATION OF [...] lung abscess/empyema. For further information please refer to:[email or web address] Lab Interpretation Normal (test code = 45953-1) [facility] HospitalSEDIMENTATION [id number] 13:21:10 Test Item Value Reference Range Interpretation Comments ESR (test code = See_Comment H [Automated message] 2089912149) The system [employer] generated this result transmitted ref erence range: 0 - 10 m m/HR. The reference r boubacar was not used to interpret this result as normal/abnor mal. Lab Interpretation (test Abnormal code = 20712-2) [facility] HospitalGLYCOSYLATED HEMOGLOBIN (A1C)2021-11-22 13:12:27 Test Item Value Reference Range Interpretation Comments HGB A1C (test code = 6.3 % 4.0-5.7 H 4548-4) ARPITA (test code = ARPITA) Reference RangesNormal: <5.7%Prediabetes: 5.7 - 6.4%Diabetes: > 6.5% Lab Interpretation (test Abnormal code = 95266-5) [facility]AL [id number] 11:53:14 Test Item Value Reference Range Interpretation Comments NT-proBNP (test code 16 pg/mL See_Comment [Autom ated = 8658012260) message] The system which generated this result transmitted reference range : <=125. The reference range was not used to interpret this result as normal/abnormal . ARPITA (test code = ARPITA) Biotin has been reported to cause a negative bias, interpret results relative to patient's use of biotin. Lab Interpretation Normal (test code = 39455-1) [facility]OLIC PAN[facility] (33802)2021-11-22 11:44:55 Test Item Value Reference Range Interpretation Comments NA (test code = 142 mmol/L 135-145 5585825442) K (test code = 3.9 mmol/L 3.5-5.0 5046971663) CL (test code = 108 mmol/L 98-108 6152431220) CO2 TOTAL (test code = 24 mmol/L 23-31 1299447114) AGAP (test code = 2-16 6477656490) BUN (test code = 11 mg/dL 7-23 5935415416) GLUCOSE (test code = 205 mg/dL 70-110 H 4480277312) CREATININE (test code = 0.71 mg/dL 0.60-1.25 1730455662) TOTAL BILI (test code = 0.7 mg/dL 0.1-1.2 1148488845) CALCIUM (test code = 8.9 mg/dL 8.6-10.6 8903775281) T PROTEIN (test code = 7.3 g/dL 6.3-8.2 1843349912) ALBUMIN (test code = 3.8 g/dL 3.5-5.0 1820818144) ALK PHOS (test code = 135 U/L 34-122 H 2374874602) ALTv (test code = 120 U/L 5-50 H 1742-6) AST(SGOT) (test code = 33 U/L 13-40 3882548059) eGFR (test code = mL/min/1.73m2 4619918930) ARPITA (test code = ARPITA) Association of [...] tests). Lab Interpretation Abnormal (test code = 18792-5) [facility] 11:44:55 Test Item Value Reference Range Interpretation Comments MAGNESIUM (test code = 7260128866) 1.6 mg/dL 1.7-2.4 L Lab Interpretation (test code = Abnormal 95405-8) [facility]PHOSPHORUS2022-[facility]-11 11:44:35 Test Item Value Reference Range Interpretation Comments PHOSPHORUS (test code = 8911076305) 4.1 mg/dL 2.5-5.0 Lab Interpretation (test code = Normal 22052-2) [facility] HospitalCREATINE [id number] 11:44:15 Test Item Value Reference Range Interpretation Comments CK (test code = 3895105367) 50 U/L 33-194 Lab Interpretation (test code = Normal 30079-5) [facility] HospitalCREATINE [id number] 11:44:15 Test Item Value Reference Range Interpretation Comments CK (test code = 9711507962) 50 U/L 33-194 Lab Interpretation (test code = Normal 44953-3) [facility]CBC WITH [id number] 11:28:14 Test Item Value Reference Range Interpretation Comments WBC (test code = See_Comment [Automated 9168-2) message] The sy stem which generated this result transmitted reference range : 4.20 - 10.70 10*3/?L. The reference range was not used to interpret this result as normal/abnormal . RBC (test code = See_Comment [Automated 485-8) message] The sy stem which generated this [...] RDW-SD (test code = 48.4 fL 38.5-51.6 86659-7) RDW-CV (test code = 15.1 % 12.1-15.4 788-0) PLT (test code = See_Comment [Automated 777-3) message] The sy stem which generated this result transmitted reference range : 150 - 328 10*3/ ?L. The reference r boubacar was not used to interpret this result as normal/abnormal . MPV (test code = 10.2 fL 9.8-13.0 45547-6) NRBC/100 WBC (test See_Comment [Automat ed code = [id number]) message] The system which generated this result transmitted reference range : 0.0 - 10.0 /100 WBCs. The refer ence range was not u sed to interpret th is result as normal/abnormal . NRBC x10^3 (test code <0.01 See_Comment [Auto mated = [id number]) message] The s ystem which generated this result transmitted reference range : 10*3/?L. The reference range was not used to interpret this result as normal/abnormal . GRAN MAT (NEUT) % 67.8 % (test code = 770-8) IMM GRAN % (test code 0.80 % = 4401875946) LYMPH % (test code = 19.8 % 736-9) MONO % (test code = 8.7 % 5905-5) EOS % (test code = 2.7 % 713-8) BASO % (test code = 0.2 % 706-2) GRAN MAT x10^3(ANC) 6.56 10*3/uL 1.99-6.95 (test code = 3169968871) IMM GRAN x10^3 (test 0.08 10*3/uL 0.00-0.06 H code = 4112308590) LYMPH x10^3 (test code 1.91 10*3/uL 1.09-3.23 = 731-0) MONO x10^3 (test code 0.84 10*3/uL 0.36-1.02 = 742-7) EOS x10^3 (test code = 0.26 10*3/uL 0.06-0.53 711-2) BASO x10^3 (test code <0.03 0.01-0.09 = 704-7) Lab Interpretation Abnormal (test code = 65349-3) [facility] [id number] 10:56:10 Test Item Value Reference Range Interpretation Comments IRON (test code = 6346164461) 46 ug/dL 50-160 L TIBC (test code = 4733619577) 299 ug/dL 250-410 % FE SAT (test code = 4287754832) 15 % 20-50 L Lab Interpretation (test code = Abnormal 16570-5) [facility] [id number] 10:56:10 Test Item Value Reference Range Interpretation Comments IRON (test code = 9314806026) 46 ug/dL 50-160 L TIBC (test code = 1617036668) 299 ug/dL 250-410 % FE SAT (test code = 7332578219) 15 % 20-50 L Lab Interpretation (test code = Abnormal 17508-6) [facility] [id number] 10:13:03 Test Item Value Reference Range Interpretation Comments FERRITIN (test code = 89.2 ng/mL 18-464 7868697837) ARPITA (test code = ARPITA) Biotin has been reported to cause a negative bias, interpret results relative to patient's use of biotin. Lab Interpretation (test Normal code = 91998-3) [facility] [id number] 10:13:03 Test Item Value Reference Range Interpretation Comments FERRITIN (test code = 89.2 ng/mL 18.0-464.0 3049593121) ARPITA (test code = ARPITA) Biotin has been reported to cause a negative bias, interpret results relative to patient's use of biotin. Lab Interpretation (test Normal code = 94816-2) [facility] [id number] 10:09:06 Test Item Value Reference Range Interpretation Comments TSH (test code = See_Comment [Automated message] 8056409144) The system [employer] generated this result transmitted ref erence range: 0.45 - 4 .70 mIU/L. The refe rence range was not u sed to interpret this result as normal/abnor mal. Lab Interpretation (test Normal code = 77916-3) [facility] [id number] 10:09:06 Test Item Value Reference Range Interpretation Comments TSH (test code = See_Comment [Automated message] 9477803529) The system [employer] generated this result transmitted ref erence range: 0.45 - 4 .70 mIU/L. The refe rence range was not u sed to interpret this result as normal/abnor mal. Lab Interpretation (test Normal code = 80839-5) [facility] [id number]-[id number] 09:47:44 Test Item Value Reference Range Interpretation Comments NT-proBNP (test code 12 pg/mL See_Comment [Autom ated = 8089796491) message] The system which generated this result transmitted reference range : <=125. The reference range was not used to interpret this result as normal/abnormal . ARPITA (test code = ARPITA) Biotin has been reported to cause a negative bias, interpret results relative to patient's use of biotin. Lab Interpretation Normal (test code = 60162-8) [facility]LIP[facility] (14548)(TOTAL CHOLESTEROL, TRIGLYCERIDES, HDL)2021-11-22 09:35:58 Test Item Value Reference Range Interpretation Comments CHOL (test code = 250 mg/dL 120-200 H 8735480878) HDL (test code = 34 mg/dL See_Comment L [Automated message] 7327887191) The system [employer] generated this result transmit lester reference range : >=40. The refer ence range was not u sed to interpret th is result as normal/abnormal . HDLC RATIO (test code = See_Comment H [Au tomated message] 7434468416) The system [employer] generated this result transmit lester reference range : <=5.0. The refe rence range was not u sed to interpret th is result as normal/abnormal . TRIG (test code = 394 mg/dL 30-170 H 9767864336) LDL CHOL (test code = 137 mg/dL See_Comment [Auto mated message] 30475-1) The system [employer] generated this result transmit lester reference range : <=160. The refe rence range was not u sed to interpret th is result as normal/abnormal . VLDL (test code = 79 mg/dL 5-60 H 6151308090) Lab Interpretation (test Abnormal code = 87884-2) [facility] (67513)(TOTAL CHOLESTEROL, TRIGLYCERIDES, HDL)2021-11-22 09:35:58 Test Item Value Reference Range Interpretation Comments CHOL (test code = 250 mg/dL 120-200 H 6535174042) HDL (test code = 34 mg/dL >40 L 1224127178) HDLC RATIO (test code = See_Comment H [Au tomated message] 0494916769) The system [employer] generated this result transmit lester reference range : <=5.0. The refe rence range was not u sed to interpret th is result as normal/abnormal . TRIG (test code = 394 mg/dL 30-170 H 2118814228) LDL CHOL (test code = 137 mg/dL See_Comment [Auto mated message] 71610-3) The system [employer] generated this result transmit lester reference range : <=160. The refe rence range was not u sed to interpret th is result as normal/abnormal . VLDL (test code = 79 mg/dL 5-60 H 7192515809) Lab Interpretation (test Abnormal code = 38514-8) [facility] 09:35:42 Test Item Value Reference Range Interpretation Comments MAGNESIUM (test code = 1710138324) 1.5 mg/dL 1.7-2.4 L Lab Interpretation (test code = Abnormal 53547-6) [facility] 09:35:42 Test Item Value Reference Range Interpretation Comments PHOSPHORUS (test code = 0632317720) 3.3 mg/dL 2.5-5.0 Lab Interpretation (test code = Normal 18030-9) [facility]. METABOLIC PANEL (60863)2021-11-22 01:29:09 Test Item Value Reference Range Interpretation Comments NA (test code = 142 mmol/L 135-145 5788265724) K (test code = 3.7 mmol/L 3.5-5.0 4399055023) CL (test code = 103 mmol/L 98-108 2589563595) CO2 TOTAL (test code = 27 mmol/L 23-31 6923296227) AGAP (test code = 2-16 0588840953) BUN (test code = 11 mg/dL 7-23 6283119662) GLUCOSE (test code = 166 mg/dL 70-110 H 5621022015) CREATININE (test code = 0.61 mg/dL 0.60-1.25 4518921040) TOTAL BILI (test code = 0.8 mg/dL 0.1-1.7 8370592301) CALCIUM (test code = 9.3 mg/dL 8.6-10.6 6080000028) T PROTEIN (test code = 7.4 g/dL 6.3-8.2 2031500440) ALBUMIN (test code = 4.0 g/dL 3.5-5.0 9470890342) ALK PHOS (test code = 164 U/L 34-122 H 4898903968) ALTv (test code = 149 U/L 5-50 H 1742-6) AST(SGOT) (test code = 29 U/L 13-40 5763782300) eGFR (test code = mL/min/1.73m2 4147796078) ARPITA (test code = ARPITA) Association of [...] tests). Lab Interpretation Abnormal (test code = 18808-3) [facility]ACT[facility] THRM[facility]AS [id number] 01:23:46 Test Item Value Reference Range Interpretation Comments APTT Patient (test See_Comment [Automat ed code = 3173-2) message] The system which generated this result transmitted reference range : 23 - 38 Seconds . The reference range was not used to interpr et this result as normal/abnormal . ARPITA (test code = ARPITA) The [facility] patient population mean normal value for aPTT is 30 seconds. Lab Interpretation Normal (test code = 32923-3) [facility] HospitalPROTHROMBIN [facility] / [id number] 01:21:51 Test Item Value Reference Range Interpretation [...] tions. Lab Interpretation (test Normal code = 79615-8) [facility] Hospital[facility] WITH [id number] 01:15:28 Test Item Value Reference Range Interpretation [...] RDW-SD (test code = 48.4 fL 38.5-51.6 35118-9) RDW-CV (test code = 15.1 % 12.1-15.4 788-0) PLT (test code = See_Comment [Automated 777-3) message] The sy stem which generated this result transmitted reference range : 150 - 328 10*3/ ?L. The reference r boubacar was not used to interpret this result as normal/abnormal . MPV (test code = 10.1 fL 9.8-13.0 15303-0) NRBC/100 WBC (test See_Comment [Automat ed code = 4618729230) message] The system which generated this result transmitted reference range : 0.0 - 10.0 /100 WBCs. The refer ence range was not u sed to interpret th is result as normal/abnormal . NRBC x10^3 (test code <0.01 See_Comment [Auto mated = 4490010910) message] The s ystem which generated this result transmitted reference range : 10*3/?L. The reference range was not used to interpret this result as normal/abnormal . GRAN MAT (NEUT) % 72.7 % (test code = 770-8) IMM GRAN % (test code 0.60 % = 6752225487) LYMPH % (test code = 15.5 % 736-9) MONO % (test code = 8.2 % 5905-5) EOS % (test code = 2.6 % 713-8) BASO % (test code = 0.4 % 706-2) GRAN MAT x10^3(ANC) 7.83 10*3/uL 1.99-6.95 H (test code = 1286748882) IMM GRAN x10^3 (test 0.07 10*3/uL 0.00-0.06 H code = 9197016239) LYMPH x10^3 (test code 1.67 10*3/uL 1.09-3.23 = 731-0) MONO x10^3 (test code 0.88 10*3/uL 0.36-1.02 = 742-7) EOS x10^3 (test code = 0.28 10*3/uL 0.06-0.53 711-2) BASO x10^3 (test code 0.04 10*3/uL 0.01-0.09 = 704-7) Lab Interpretation Abnormal (test code = 32453-1) [facility] HospitalL[facility] Acid Whole [id number] 01:14:32 Test Item Value Reference Range Interpretation Comments LACTIC ACID (test code = 1.86 mmol/L 0.50-2.20 8404099101) Lab Interpretation (test code = Normal 54542-3) [facility] [id number] 12:58:00 Test Item Value Reference Range Interpretation Comments Glucose Lvl (test code = Glucose Lvl) 228 70-99 [facility]2022-04-12 12:58:00 Test Item Value Reference Range Interpretation Comments BUN (test code = BUN) 23 7-22 [facility]2022-04-12 12:58:00 Test Item Value Reference Range Interpretation Comments Creatinine Lvl (test code = Creatinine 0.78 0.50-1.40 Lvl) [facility]2022-04-12 12:58:00 Test Item Value Reference Range Interpretation Comments Sodium Lvl (test code = Sodium Lvl) 138 135-145 [facility]2022-04-12 12:58:00 Test Item Value Reference Range Interpretation Comments Potassium Lvl (test code = Potassium 4.6 3.5-5.1 Lvl) [place] 238832-04-12 12:58:00 Test Item Value Reference Range Interpretation Comments Chloride Lvl (test code = Chloride Lvl) 108 95-109 [place] 238832-04-12 12:58:00 Test Item Value Reference Range Interpretation Comments CO2 (test code = CO2) 23 24-32 [place] 238832-04-12 12:58:00 Test Item Value Reference Range Interpretation Comments Calcium Lvl (test code = Calcium Lvl) 9.0 8.5-10.5 [place] 238832-04-12 12:58:00 Test Item Value Reference Range Interpretation Comments AGAP (test code = AGAP) 11.6 10.0-20.0 [place] 238832-04-12 12:58:00 Test Item Value Reference Range Interpretation Comments eGFR (test code = eGFR) 116 [place] 081492-04-12 12:58:00 Test Item Value Reference Range Interpretation Comments WBC (test code = WBC) 10.5 3.7-10.4 [place] 081492-04-12 12:58:00 Test Item Value Reference Range Interpretation Comments RBC (test code = RBC) 5.48 4.70-6.10 [place] [address]-04-12 12:58:00 Test Item Value Reference Range Interpretation Comments Hgb (test code = Hgb) 16.0 14.0-18.0 [place] [address]-04-12 12:58:00 Test Item Value Reference Range Interpretation Comments Hct (test code = Hct) 49.8 42.0-54.0 [place] [address]-04-12 12:58:00 Test Item Value Reference Range Interpretation Comments MCV (test code = MCV) 90.8 80.0-94.0 [place] [address]-04-12 12:58:00 Test Item Value Reference Range Interpretation Comments MCH (test code = MCH) 29.1 pg 27.0-31.0 [place] 081492-04-12 12:58:00 Test Item Value Reference Range Interpretation Comments MCHC (test code = MCHC) 32.1 32.0-36.0 [place] [address]-04-12 12:58:00 Test Item Value Reference Range Interpretation Comments RDW (test code = RDW) 15.5 11.5-14.5 [facility] CenterBletslcIHXVSOQOAO3919-00-06 12:58:00 Test Item Value Reference Range Interpretation Comments Platelet (test code = Platelet) 312 133-450 [place] 081492-04-12 12:58:00 Test Item Value Reference Range Interpretation Comments MPV (test code = MPV) 8.3 7.4-10.4 [place] 081492-04-12 12:58:00 Test Item Value Reference Range Interpretation Comments PT (test code = PT) 12.9 s 12.0-14.7 [place] 081492-04-12 12:58:00 Test Item Value Reference Range Interpretation Comments INR (test code = INR) 0.98 1 0.85-1.17 [place] 081492-04-12 12:58:00 Test Item Value Reference Range Interpretation Comments PTT (test code = PTT) 27.3 s 22.9-35.8 [place] 081492-04-12 12:58:00 Test Item Value Reference Range Interpretation Comments Segs (test code = Segs) 71.2 45.0-75.0 [place] 081492-04-12 12:58:00 Test Item Value Reference Range Interpretation Comments Lymphocytes (test code = Lymphocytes) 21.1 20.0-40.0 [facility] CenterJnzjurtVBAGWKMFCT9207-54-47 12:58:00 Test Item Value Reference Range Interpretation Comments Monocytes (test code = Monocytes) 6.8 2.0-12.0 [place] 081492-04-12 12:58:00 Test Item Value Reference Range Interpretation Comments Eosinophils (test code = 0.1 See_Comment [A utomated message] The Eosinophils) system which ge nerated this result tra nsmitted reference range : <=4.0. The reference r boubacar was not used to int erpret this result as normal/abnormal . [place] 081492-04-12 12:58:00 Test Item Value Reference Range Interpretation Comments Basophils (test code = 0.8 See_Comment [Aut omated message] The Basophils) system which ge nerated this result tra nsmitted reference range : <=1.0. The reference r boubacar was not used to int erpret this result as normal/abnormal . [place] [address]-04-12 12:58:00 Test Item Value Reference Range Interpretation Comments Neutrophils # (test code = Neutrophils 7.5 1.5-8.1 #) [place] 081492-04-12 12:58:00 Test Item Value Reference Range Interpretation Comments Lymphocytes # (test code = Lymphocytes 2.2 1.0-5.5 #) [place] 081492-04-12 12:58:00 Test Item Value Reference Range Interpretation Comments Monocytes # (test code 0.7 See_Comment [Aut omated message] The = Monocytes #) system which generated this result tra nsmitted reference range : <=0.8. The reference r boubacar was not used to int erpret this result as normal/abnormal . [place] [address]-04-12 12:58:00 Test Item Value Reference Range Interpretation Comments Basophils # (test code 0.1 See_Comment [Aut omated message] The = Basophils #) system which generated this result tra nsmitted reference range : <=0.2. The reference r boubacar was not used to int erpret this result as normal/abnormal . [place] 238832-04-12 12:58:00 Test Item Value Reference Range Interpretation Comments Glucose Lvl (test code = Glucose Lvl) 228 70-99 [place] 238832-04-12 12:58:00 Test Item Value Reference Range Interpretation Comments BUN (test code = BUN) 23 7-22 [place] 238832-04-12 12:58:00 Test Item Value Reference Range Interpretation Comments Creatinine Lvl (test code = Creatinine 0.78 0.50-1.40 Lvl) [place] 238832-04-12 12:58:00 Test Item Value Reference Range Interpretation Comments Sodium Lvl (test code = Sodium Lvl) 138 135-145 [place] 238832-04-12 12:58:00 Test Item Value Reference Range Interpretation Comments Potassium Lvl (test code = Potassium 4.6 3.5-5.1 Lvl) [place] 238832-04-12 12:58:00 Test Item Value Reference Range Interpretation Comments Chloride Lvl (test code = Chloride Lvl) 108 95-109 [place] 238832-04-12 12:58:00 Test Item Value Reference Range Interpretation Comments CO2 (test code = CO2) 23 24-32 [facility]2022-04-12 12:58:00 Test Item Value Reference Range Interpretation Comments Calcium Lvl (test code = Calcium Lvl) 9.0 8.5-10.5 [facility]2022-04-12 12:58:00 Test Item Value Reference Range Interpretation Comments AGAP (test code = AGAP) 11.6 10.0-20.0 [facility]2022-04-12 12:58:00 Test Item Value Reference Range Interpretation Comments eGFR (test code = eGFR) 116 [facility] CenterMazwjxwBYAACKOUCB8867-30-62 12:58:00 Test Item Value Reference Range Interpretation Comments WBC (test code = WBC) 10.5 3.7-10.4 [facility] CenterMbtbjsqFXULGLKBMA2484-29-72 12:58:00 Test Item Value Reference Range Interpretation Comments RBC (test code = RBC) 5.48 4.70-6.10 [facility] CenterXdnjwqyVEQUHKKFGU6549-18-60 12:58:00 Test Item Value Reference Range Interpretation Comments Hgb (test code = Hgb) 16.0 14.0-18.0 [facility] CenterLhwfpvmJPVITJJFRG8255-06-59 12:58:00 Test Item Value Reference Range Interpretation Comments Hct (test code = Hct) 49.8 42.0-54.0 [facility] CenterShpslixPVOKTZNYTU6762-80-30 12:58:00 Test Item Value Reference Range Interpretation Comments MCV (test code = MCV) 90.8 80.0-94.0 [place] 081492-04-12 12:58:00 Test Item Value Reference Range Interpretation Comments MCH (test code = MCH) 29.1 pg 27.0-31.0 [place] 081492-04-12 12:58:00 Test Item Value Reference Range Interpretation Comments MCHC (test code = MCHC) 32.1 32.0-36.0 [place] 081492-04-12 12:58:00 Test Item Value Reference Range Interpretation Comments RDW (test code = RDW) 15.5 11.5-14.5 [facility] CenterBunirbxVEBPHPPWUW9445-19-73 12:58:00 Test Item Value Reference Range Interpretation Comments Platelet (test code = Platelet) 312 133-450 [place] 081492-04-12 12:58:00 Test Item Value Reference Range Interpretation Comments MPV (test code = MPV) 8.3 7.4-10.4 [place] [address]-04-12 12:58:00 Test Item Value Reference Range Interpretation Comments PT (test code = PT) 12.9 s 12.0-14.7 [place] [address]-04-12 12:58:00 Test Item Value Reference Range Interpretation Comments INR (test code = INR) 0.98 1 0.85-1.17 [place] [address]-04-12 12:58:00 Test Item Value Reference Range Interpretation Comments PTT (test code = PTT) 27.3 s 22.9-35.8 [place] [address]-04-12 12:58:00 Test Item Value Reference Range Interpretation Comments Segs (test code = Segs) 71.2 45.0-75.0 [place] [address]-04-12 12:58:00 Test Item Value Reference Range Interpretation Comments Lymphocytes (test code = Lymphocytes) 21.1 20.0-40.0 [place] [address]-04-12 12:58:00 Test Item Value Reference Range Interpretation Comments Monocytes (test code = Monocytes) 6.8 2.0-12.0 [place] [address]-04-12 12:58:00 Test Item Value Reference Range Interpretation Comments Eosinophils (test code = 0.1 See_Comment [A utomated message] The Eosinophils) system which ge nerated this result tra nsmitted reference range : <=4.0. The reference r boubacar was not used to int erpret this result as normal/abnormal . [place] [address]-04-12 12:58:00 Test Item Value Reference Range Interpretation Comments Basophils (test code = 0.8 See_Comment [Aut omated message] The Basophils) system which ge nerated this result tra nsmitted reference range : <=1.0. The reference r boubacar was not used to int erpret this result as normal/abnormal . [place] [address]-04-12 12:58:00 Test Item Value Reference Range Interpretation Comments Neutrophils # (test code = Neutrophils 7.5 1.5-8.1 #) [place] 081492-04-12 12:58:00 Test Item Value Reference Range Interpretation Comments Lymphocytes # (test code = Lymphocytes 2.2 1.0-5.5 #) [facility] CenterSthdqwuLFWKBBPVTC7694-22-85 12:58:00 Test Item Value Reference Range Interpretation Comments Monocytes # (test code 0.7 See_Comment [Aut omated message] The = Monocytes #) system which generated this result tra nsmitted reference range : <=0.8. The reference r boubacar was not used to int erpret this result as normal/abnormal . [facility] CenterFuqojcyALTZSOVLKB5616-40-33 12:58:00 Test Item Value Reference Range Interpretation Comments Basophils # (test code 0.1 See_Comment [Aut omated message] The = Basophils #) system which generated this result tra nsmitted reference range : <=0.2. The reference r boubacar was not used to int erpret this result as normal/abnormal . [facility] ROSQDW3420-94-21 11:59:00 Test Item Value Reference Range Interpretation Comments Tube Num CSF (test code = Tube Num CSF) 3 1 [facility]2022-04-12 11:59:00 Test Item Value Reference Range Interpretation Comments Color CSF (test code Colorless (10/24/21 6:59 = Color CSF) AM) [facility]2022-04-12 11:59:00 Test Item Value Reference Range Interpretation Comments Clarity CSF (test code = Clear (10/24/21 6:59 Clarity CSF) AM) [facility]2022-04-12 11:59:00 Test Item Value Reference Range Interpretation Comments Supernat CSF (test Colorless (10/24/21 6:59 code = Supernat CSF) AM) [place] 628142-04-12 11:59:00 Test Item Value Reference Range Interpretation Comments Nucleated Cells CSF 3 See_Comment [Automa lester message] The (test code = Nucleated syste m which generated Cells CSF) this result tra nsmitted reference range : <=53. The reference r boubacar was not used to int erpret this result as normal/abnormal . [facility] LLNPIO2995-32-03 11:59:00 Test Item Value Reference Range Interpretation Comments RBC CSF (test code = 64 See_Comment [Autom ated message] The RBC CSF) system which ge nerated this result transmit lester reference range : <=03. The reference range was not used to interpr et this result as dany l/abnormal. [facility] FCMLGK5782-32-28 11:59:00 Test Item Value Reference Range Interpretation Comments Comment CSF (test Differential not performed code = Comment CSF) on WBC count of less than 5. Cell counts performed on CSF greater than two hours after collection may not be self pay representative due to cellular degradation. [facility] XCXURZ5352-87-95 11:59:00 Test Item Value Reference Range Interpretation Comments Glucose CSF (test code = Glucose CSF) 129 45-80 [facility] WXPYVG3836-96-27 11:59:00 Test Item Value Reference Range Interpretation Comments Protein CSF (test code = Protein CSF) 110 15-45 [facility] St[facility] Wynrps6603-50-87 11:59:00 Test Item Value Reference Range Interpretation Comments Gram Stain Report Gram Stain Performed By: (test code = Gram [facility] Stain Report) [facility] CSF w/Gram Rakec6608-08-58 11:59:00 Test Item Value Reference Range Interpretation Comments Culture: CSF w/Gram 48 Hour Report - No Stain (test code = Growth, Holding Culture: CSF w/Gram Stain) [facility]2022-04-12 11:59:00 Test Item Value Reference Range Interpretation Comments Tube Num CSF (test code = Tube Num CSF) 3 1 [facility] WBGTNY6712-91-19 11:59:00 Test Item Value Reference Range Interpretation Comments Color CSF (test code Colorless (10/24/21 6:59 = Color CSF) AM) [facility]2022-04-12 11:59:00 Test Item Value Reference Range Interpretation Comments Clarity CSF (test code = Clear (10/24/21 6:59 Clarity CSF) AM) [facility]2022-04-12 11:59:00 Test Item Value Reference Range Interpretation Comments Supernat CSF (test Colorless (10/24/21 6:59 code = Supernat CSF) AM) [facility]2022-04-12 11:59:00 Test Item Value Reference Range Interpretation Comments Nucleated Cells CSF 3 See_Comment [Automa lester message] The (test code = Nucleated syste m which generated Cells CSF) this result tra nsmitted reference range : <=53. The reference r boubacar was not used to int erpret this result as normal/abnormal . [facility] [id number] 11:59:00 Test Item Value Reference Range Interpretation Comments RBC CSF (test code = 64 See_Comment [Autom ated message] The RBC CSF) system which ge nerated this result transmit lester reference range : <=03. The reference range was not used to interpr et this result as dany l/abnormal. [facility] [id number] 11:59:00 Test Item Value Reference Range Interpretation Comments Comment CSF (test Differential not performed code = Comment CSF) on WBC count of less than 5. Cell counts performed on CSF greater than two hours after collection may not be self pay representative due to cellular degradation. [facility] [id number] 11:59:00 Test Item Value Reference Range Interpretation Comments Glucose CSF (test code = Glucose CSF) 129 45-80 [facility] [id number] 11:59:00 Test Item Value Reference Range Interpretation Comments Protein CSF (test code = Protein CSF) 110 15-45 [facility] [id number] 11:59:00 Test Item Value Reference Range Interpretation Comments Gram Stain Report Gram Stain Performed By: (test code = Gram [facility] Stain Report) [facility] w/Gram [id number] 11:59:00 Test Item Value Reference Range Interpretation Comments Culture: CSF w/Gram 48 Hour Report - No Stain (test code = Growth, Holding Culture: CSF w/Gram Stain) [facility] [id number] 14:46:00 Test Item Value Reference Range Interpretation Comments Hgb A1C (test code = Hgb A1C) 5.6 [facility]villeannBitpagosIAL [id number] 14:46:00 Test Item Value Reference Range Interpretation Comments Hgb A1C (test code = Hgb A1C) 5.6 [facility] GreenvilleQuantifindCHEM [id number] 11:43:00 Test Item Value Reference Range Interpretation Comments Glucose Lvl (test code = Glucose Lvl) 418 70-99 [facility] [id number] 11:43:00 Test Item Value Reference Range Interpretation Comments BUN (test code = BUN) 22 7-22 [facility] GreenvilleFutubra [id number] 11:43:00 Test Item Value Reference Range Interpretation Comments Creatinine Lvl (test code = Creatinine 1.10 0.50-1.40 Lvl) [facility]2022-04-11 11:43:00 Test Item Value Reference Range Interpretation Comments Sodium Lvl (test code = Sodium Lvl) 138 135-145 [facility]2022-04-11 11:43:00 Test Item Value Reference Range Interpretation Comments Potassium Lvl (test code = Potassium 4.9 3.5-5.1 Lvl) [place] [id number] 11:43:00 Test Item Value Reference Range Interpretation Comments Chloride Lvl (test code = Chloride Lvl) 113 95-109 [place] 238832-04-11 11:43:00 Test Item Value Reference Range Interpretation Comments CO2 (test code = CO2) 16 24-32 [place] 238832-04-11 11:43:00 Test Item Value Reference Range Interpretation Comments AGAP (test code = AGAP) 13.9 10.0-20.0 [place] 238832-04-11 11:43:00 Test Item Value Reference Range Interpretation Comments Calcium Lvl (test code = Calcium Lvl) 9.0 8.5-10.5 [facility]2022-04-11 11:43:00 Test Item Value Reference Range Interpretation Comments eGFR (test code = eGFR) 86 [facility] CenterDyrsvhwLFYJJRLMTK6697-00-83 11:43:00 Test Item Value Reference Range Interpretation Comments WBC (test code = WBC) 10.2 3.7-10.4 [facility] CenterDxpwzcbZABSLPBQKR4230-89-56 11:43:00 Test Item Value Reference Range Interpretation Comments RBC (test code = RBC) 5.46 4.70-6.10 [facility] CenterLkzwytuBTRGIXSPVH1696-43-46 11:43:00 Test Item Value Reference Range Interpretation Comments Hgb (test code = Hgb) 16.3 14.0-18.0 [place] [address]-04-11 11:43:00 Test Item Value Reference Range Interpretation Comments Hct (test code = Hct) 50.0 42.0-54.0 [place] 081492-04-11 11:43:00 Test Item Value Reference Range Interpretation Comments MCV (test code = MCV) 91.4 80.0-94.0 [place] 081492-04-11 11:43:00 Test Item Value Reference Range Interpretation Comments MCH (test code = MCH) 29.9 pg 27.0-31.0 [facility] CenterFqfbjqiNOFRPAEWBJ8553-29-62 11:43:00 Test Item Value Reference Range Interpretation Comments MCHC (test code = MCHC) 32.7 32.0-36.0 [facility] CenterZwlttrhNBJFFONWNH8425-15-87 11:43:00 Test Item Value Reference Range Interpretation Comments RDW (test code = RDW) 15.7 11.5-14.5 [facility] CenterZkheakpKYRXUMQBIQ3377-94-27 11:43:00 Test Item Value Reference Range Interpretation Comments Platelet (test code = Platelet) 321 133-450 [facility] CenterYrkhdszPZCZQVKOAL1512-31-39 11:43:00 Test Item Value Reference Range Interpretation Comments MPV (test code = MPV) 8.6 7.4-10.4 [facility] CenterO[id number] 11:43:00 Test Item Value Reference Range Interpretation Comments Segs (test code = Segs) 92.0 45.0-75.0 [facility] CenterOdwhgqoXJULDPLKAR4768-43-24 11:43:00 Test Item Value Reference Range Interpretation Comments Lymphocytes (test code = Lymphocytes) 5.2 20.0-40.0 [facility] CenterIgnqvpcEKXVBIOHTH2775-23-96 11:43:00 Test Item Value Reference Range Interpretation Comments Monocytes (test code = Monocytes) 1.6 2.0-12.0 [facility] CenterTejitmdYJRRANCBXL7599-44-25 11:43:00 Test Item Value Reference Range Interpretation Comments Basophils (test code = 1.2 See_Comment [Aut omated message] The Basophils) system which ge nerated this result tra nsmitted reference range : <=1.0. The reference r boubacar was not used to int erpret this result as normal/abnormal . [facility] CenterLhklvbeJPRNMSQJNH4724-30-90 11:43:00 Test Item Value Reference Range Interpretation Comments Neutrophils # (test code = Neutrophils 9.4 1.5-8.1 #) [facility] CenterUzbybapBNZQOQIEIT4200-23-20 11:43:00 Test Item Value Reference Range Interpretation Comments Lymphocytes # (test code = Lymphocytes 0.5 1.0-5.5 #) [facility] CenterWcosknfEMUVAGKJBW8876-97-36 11:43:00 Test Item Value Reference Range Interpretation Comments Monocytes # (test code 0.2 See_Comment [Aut omated message] The = Monocytes #) system which generated this result tra nsmitted reference range : <=0.8. The reference r boubacar was not used to int erpret this result as normal/abnormal . [facility] CenterSzwcfhmAIBAGKRLSU9440-71-49 11:43:00 Test Item Value Reference Range Interpretation Comments Basophils # (test code 0.1 See_Comment [Aut omated message] The = Basophils #) system which generated this result tra nsmitted reference range : <=0.2. The reference r boubacar was not used to int erpret this result as normal/abnormal . [facility]2022-04-11 11:43:00 Test Item Value Reference Range Interpretation Comments Glucose Lvl (test code = Glucose Lvl) 418 70-99 [facility]2022-04-11 11:43:00 Test Item Value Reference Range Interpretation Comments BUN (test code = BUN) 22 7-22 [facility]2022-04-11 11:43:00 Test Item Value Reference Range Interpretation Comments Creatinine Lvl (test code = Creatinine 1.10 0.50-1.40 Lvl) [facility]2022-04-11 11:43:00 Test Item Value Reference Range Interpretation Comments Sodium Lvl (test code = Sodium Lvl) 138 135-145 [facility]2022-04-11 11:43:00 Test Item Value Reference Range Interpretation Comments Potassium Lvl (test code = Potassium 4.9 3.5-5.1 Lvl) [facility]2022-04-11 11:43:00 Test Item Value Reference Range Interpretation Comments Chloride Lvl (test code = Chloride Lvl) 113 95-109 [facility]2022-04-11 11:43:00 Test Item Value Reference Range Interpretation Comments CO2 (test code = CO2) 16 24-32 [facility]villeFut[facility] [id number] 11:43:00 Test Item Value Reference Range Interpretation Comments AGAP (test code = AGAP) 13.9 10.0-20.0 [place] 238832-04-11 11:43:00 Test Item Value Reference Range Interpretation Comments Calcium Lvl (test code = Calcium Lvl) 9.0 8.5-10.5 [place] 238832-04-11 11:43:00 Test Item Value Reference Range Interpretation Comments eGFR (test code = eGFR) 86 [facility] CenterJgquarrMYVAHXTIKT1821-30-58 11:43:00 Test Item Value Reference Range Interpretation Comments WBC (test code = WBC) 10.2 3.7-10.4 [facility] CenterKfvvaoyOZJSKBHICL7425-07-68 11:43:00 Test Item Value Reference Range Interpretation Comments RBC (test code = RBC) 5.46 4.70-6.10 [facility] CenterOieehrwHXPZHRBAKN1240-57-60 11:43:00 Test Item Value Reference Range Interpretation Comments Hgb (test code = Hgb) 16.3 14.0-18.0 [facility] CenterKhlapugXAMLQXJWFF3600-08-85 11:43:00 Test Item Value Reference Range Interpretation Comments Hct (test code = Hct) 50.0 42.0-54.0 [facility] CenterVlrqorjXZKZXNOTIW6760-22-00 11:43:00 Test Item Value Reference Range Interpretation Comments MCV (test code = MCV) 91.4 80.0-94.0 [facility] CenterGiywwyzXQYRRPWJHN5316-20-77 11:43:00 Test Item Value Reference Range Interpretation Comments MCH (test code = MCH) 29.9 pg 27.0-31.0 [facility] CenterBjdvwouSYSOVDCLCM0716-82-71 11:43:00 Test Item Value Reference Range Interpretation Comments MCHC (test code = MCHC) 32.7 32.0-36.0 [facility] CenterKlgztlcNFBLURAMXE0824-99-45 11:43:00 Test Item Value Reference Range Interpretation Comments RDW (test code = RDW) 15.7 11.5-14.5 [facility] CenterFytbcccWGPBGCRBSB9608-57-34 11:43:00 Test Item Value Reference Range Interpretation Comments Platelet (test code = Platelet) 321 133-450 [facility] CenterFdbsltwXJJTAUNFDQ2204-52-44 11:43:00 Test Item Value Reference Range Interpretation Comments MPV (test code = MPV) 8.6 7.4-10.4 [facility] CenterTxtifspCAHPNFHFUN3817-50-08 11:43:00 Test Item Value Reference Range Interpretation Comments Segs (test code = Segs) 92.0 45.0-75.0 [facility] CenterZfyfqskPCUFPFASMK3820-01-46 11:43:00 Test Item Value Reference Range Interpretation Comments Lymphocytes (test code = Lymphocytes) 5.2 20.0-40.0 [place] 081492-04-11 11:43:00 Test Item Value Reference Range Interpretation Comments Monocytes (test code = Monocytes) 1.6 2.0-12.0 [place] 081492-04-11 11:43:00 Test Item Value Reference Range Interpretation Comments Basophils (test code = 1.2 See_Comment [Aut omated message] The Basophils) system which ge nerated this result tra nsmitted reference range : <=1.0. The reference r boubacar was not used to int erpret this result as normal/abnormal . [facility] CenterEvtllezRCVUOCZGJA9217-15-60 11:43:00 Test Item Value Reference Range Interpretation Comments Neutrophils # (test code = Neutrophils 9.4 1.5-8.1 #) [place] 081492-04-11 11:43:00 Test Item Value Reference Range Interpretation Comments Lymphocytes # (test code = Lymphocytes 0.5 1.0-5.5 #) [place] 081492-04-11 11:43:00 Test Item Value Reference Range Interpretation Comments Monocytes # (test code 0.2 See_Comment [Aut omated message] The = Monocytes #) system which generated this result tra nsmitted reference range : <=0.8. The reference r boubacar was not used to int erpret this result as normal/abnormal . [place] 081492-04-11 11:43:00 Test Item Value Reference Range Interpretation Comments Basophils # (test code 0.1 See_Comment [Aut omated message] The = Basophils #) system which generated this result tra nsmitted reference range : <=0.2. The reference r boubacar was not used to int erpret this result as normal/abnormal . [facility]TjdngsrPVHQBHKZXF1300-51-78 09:18:00 Test Item Value Reference Range Interpretation Comments Coronavirus (COVID-19) Not Detected (10/21/21 OUMOU (test code = 4:18 AM) Coronavirus (COVID-19) OUMOU) [place] [address]-04-09 09:18:00 Test Item Value Reference Range Interpretation Comments Coronavirus (COVID-19) Not Detected (10/21/21 OUMOU (test code = 4:18 AM) Coronavirus (COVID-19) OUMOU) [facility] CentralCHANDAFTRIAXONE:SUSC:PT:ISOLATE:ORDQN:[id number] 08:19:00 Test Item Value Reference Range Interpretation Comments Culture: Urine (test >100,000 CFU/mL code = Culture: Providencia stuartii Urine) Love GomezCHANDAFTRIAXONE:SUSC:PT:ISOLATE:ORDQN:[id number] 08:19:00 Test Item Value Reference Range Interpretation Comments Providencia stuartii Providencia stuartii (test code = Providencia stuartii) [facility] AND [id number] 08:19:00 Test Item Value Reference Range Interpretation Comments UA Color (test code = Yellow *NA*(10/21/21 3:19 UA Color) AM) [facility] AND [id number] 08:19:00 Test Item Value Reference Range Interpretation Comments UA Turbidity (test code Marked *ABN*(10/21/21 = UA Turbidity) 3:19 AM) [facility] AND [id number] 08:19:00 Test Item Value Reference Range Interpretation Comments UA Spec Grav (test code = UA Spec 1.013 1 Grav) [facility] AND [id number] 08:19:00 Test Item Value Reference Range Interpretation Comments UA pH (test code = UA pH) 5.0 1 5.0-8.0 [facility] AND [id number] 08:19:00 Test Item Value Reference Range Interpretation Comments UA Protein (test code = UA Negative mg/dL Protein) [facility] AND [id number] 08:19:00 Test Item Value Reference Range Interpretation Comments UA Glucose (test code = UA Negative mg/dL Glucose) [facility] AND [id number] 08:19:00 Test Item Value Reference Range Interpretation Comments UA Ketones (test code = UA Negative mg/dL Ketones) [facility] AND [id number] 08:19:00 Test Item Value Reference Range Interpretation Comments UA Bili (test code = Negative *NA*(10/21/21 UA Bili) 3:19 AM) [facility] AND [id number] 08:19:00 Test Item Value Reference Range Interpretation Comments UA Blood (test code = Small *ABN*(10/21/21 UA Blood) 3:19 AM) [facility] [id number] 08:19:00 Test Item Value Reference Range Interpretation Comments UA Urobilinogen (test code = UA no gt 0.1-1.0 Urobilinogen) [facility] [id number] 08:19:00 Test Item Value Reference Range Interpretation Comments UA Nitrite (test code Positive *ABN*(10/21/21 = UA Nitrite) 3:19 AM) [facility] [id number] 08:19:00 Test Item Value Reference Range Interpretation Comments UA Leuk Est (test code Large *ABN*(10/21/21 3:19 = UA Leuk Est) AM) [facility] [id number] 08:19:00 Test Item Value Reference Range Interpretation Comments UA WBC (test code = no gt See_Comment [Automa lester message] The UA WBC) system which ge nerated this result transmit lester reference range : <=5. The reference range was not used to interpr et this result as dany l/abnormal. [facility] [id number] 08:19:00 Test Item Value Reference Range Interpretation Comments UA RBC (test code = 8 See_Comment [Automa lester message] The UA RBC) system which ge nerated this result transmit lester reference range : <=2. The reference range was not used to interpr et this result as dany l/abnormal. [facility] [id number] 08:19:00 Test Item Value Reference Range Interpretation Comments UA Bacteria (test code = UA Occasional /HPF Bacteria) [facility] [id number] 08:19:00 Test Item Value Reference Range Interpretation Comments UA Mucus (test code = UA Mucus) Few /LPF [facility] [id number] 08:19:00 Test Item Value Reference Range Interpretation Comments UA Amorph Christi (test code = Occasional /HPF UA Amorph Christi) [facility] [id number] 08:19:00 Test Item Value Reference Range Interpretation Comments UA Sq Epi (test code = UA Sq Epi) None [facility]en [facility]: [id number] 08:19:00 Test Item Value Reference Range Interpretation Comments Culture: Urine (test Holding For Better code = Culture: Urine) Growth [facility] ValdezFTRIAXONE:SUSC:PT:ISOLATE:ORDQN:[id number] 08:19:00 Test Item Value Reference Range Interpretation Comments Culture: Urine (test >100,000 CFU/mL code = Culture: Providencia stuartii Urine) [facility] HarmonyRIAXONE:SUSC:PT:ISOLATE:ORDQN:[id number] 08:19:00 Test Item Value Reference Range Interpretation Comments Providencia stuartii Providencia stuartii (test code = Providencia stuartii) [facility] AND [id number] 08:19:00 Test Item Value Reference Range Interpretation Comments UA Color (test code = Yellow *NA*(10/21/21 3:19 UA Color) AM) [facility] AND [id number] 08:19:00 Test Item Value Reference Range Interpretation Comments UA Turbidity (test code Marked *ABN*(10/21/21 = UA Turbidity) 3:19 AM) [facility] [id number] 08:19:00 Test Item Value Reference Range Interpretation Comments UA Spec Grav (test code = UA Spec 1.013 1 Grav) [facility] [id number] 08:19:00 Test Item Value Reference Range Interpretation Comments UA pH (test code = UA pH) 5.0 1 5.0-8.0 [facility] [id number] 08:19:00 Test Item Value Reference Range Interpretation Comments UA Protein (test code = UA Negative mg/dL Protein) [facility] [id number] 08:19:00 Test Item Value Reference Range Interpretation Comments UA Glucose (test code = UA Negative mg/dL Glucose) [facility] [id number] 08:19:00 Test Item Value Reference Range Interpretation Comments UA Ketones (test code = UA Negative mg/dL Ketones) [facility] [id number] 08:19:00 Test Item Value Reference Range Interpretation Comments UA Bili (test code = Negative *NA*(10/21/21 UA Bili) 3:19 AM) [facility] AND [id number] 08:19:00 Test Item Value Reference Range Interpretation Comments UA Blood (test code = Small *ABN*(10/21/21 UA Blood) 3:19 AM) [facility] [id number] 08:19:00 Test Item Value Reference Range Interpretation Comments UA Urobilinogen (test code = UA no gt 0.1-1.0 Urobilinogen) [facility] [id number] 08:19:00 Test Item Value Reference Range Interpretation Comments UA Nitrite (test code Positive *ABN*(10/21/21 = UA Nitrite) 3:19 AM) [facility] [id number] 08:19:00 Test Item Value Reference Range Interpretation Comments UA Leuk Est (test code Large *ABN*(10/21/21 3:19 = UA Leuk Est) AM) [facility] [id number] 08:19:00 Test Item Value Reference Range Interpretation Comments UA WBC (test code = no gt See_Comment [Automa lester message] The UA WBC) system which ge nerated this result transmit lester reference range : <=5. The reference range was not used to interpr et this result as dany l/abnormal. [facility] [id number] 08:19:00 Test Item Value Reference Range Interpretation Comments UA RBC (test code = 8 See_Comment [Automa lester message] The UA RBC) system which ge nerated this result transmit lester reference range : <=2. The reference range was not used to interpr et this result as dany l/abnormal. [facility] [id number] 08:19:00 Test Item Value Reference Range Interpretation Comments UA Bacteria (test code = UA Occasional /HPF Bacteria) [facility] [id number] 08:19:00 Test Item Value Reference Range Interpretation Comments UA Mucus (test code = UA Mucus) Few /LPF [facility] [id number] 08:19:00 Test Item Value Reference Range Interpretation Comments UA Amorph Christi (test code = Occasional /HPF UA Amorph Christi) [facility] [id number] 08:19:00 Test Item Value Reference Range Interpretation Comments UA Sq Epi (test code = UA Sq Epi) None [facility]: [id number] 08:19:00 Test Item Value Reference Range Interpretation Comments Culture: Urine (test Holding For Better code = Culture: Urine) Growth [facility] [id number] 00:20:00 Test Item Value Reference Range Interpretation Comments ABO/Rh (test code = ABO/Rh) AB POS [facility] [id number] 00:20:00 Test Item Value Reference Range Interpretation Comments Antibody Scrn (test Negative (10/20/21 7:20 code = Antibody Scrn) PM) [facility] Carlotz [id number] 00:20:00 Test Item Value Reference Range Interpretation Comments Glucose Lvl (test code = Glucose Lvl) 74 70-[address] [facility]otz [id number] 00:20:00 Test Item Value Reference Range Interpretation Comments BUN (test code = BUN) 15 -22 [facility]villeF[facility] [id number] 00:20:00 Test Item Value Reference Range Interpretation Comments Creatinine Lvl (test code = Creatinine 0.61 0.50-1.40 Lvl) [facility] [id number] 00:20:00 Test Item Value Reference Range Interpretation Comments Sodium Lvl (test code = Sodium Lvl) 139 135-[address] [facility]otz [id number] 00:20:00 Test Item Value Reference Range Interpretation Comments Potassium Lvl (test code = Potassium 4.9 3.5-5.1 Lvl) [facility]otz [id number] 00:20:00 Test Item Value Reference Range Interpretation Comments Chloride Lvl (test code = Chloride Lvl) 105 95-[address] [facility]otz [id number] 00:20:00 Test Item Value Reference Range Interpretation Comments CO2 (test code = CO2) 30 24-[address] [facility] [id number] 00:20:00 Test Item Value Reference Range Interpretation Comments Calcium Lvl (test code = Calcium Lvl) 9.5 8.5-10.[address] [facility] [id number] 00:20:00 Test Item Value Reference Range Interpretation Comments AGAP (test code = AGAP) 8.9 10.0-20.[address] [facility]ot[facility] [id number] 00:20:00 Test Item Value Reference Range Interpretation Comments eGFR (test code = eGFR) 129 [facility] [id number] 00:20:00 Test Item Value Reference Range Interpretation Comments ABO/Rh (test code = ABO/Rh) AB POS [facility] [id number] 00:20:00 Test Item Value Reference Range Interpretation Comments Antibody Scrn (test Negative (10/20/21 7:20 code = Antibody Scrn) PM) [facility] [id number] 00:20:00 Test Item Value Reference Range Interpretation Comments Lactic Acid Lvl (test code = Lactic 1.2 0.5-2.2 Acid Lvl) [facility] [id number] 00:20:00 Test Item Value Reference Range Interpretation Comments Glucose Lvl (test code = Glucose Lvl) 74 70-99 [facility]ville[facility] [id number] 00:20:00 Test Item Value Reference Range Interpretation Comments BUN (test code = BUN) 15 -22 [facility]2022-04-09 00:20:00 Test Item Value Reference Range Interpretation Comments Creatinine Lvl (test code = Creatinine 0.61 0.50-1.40 Lvl) [facility]ville[facility] [id number] 00:20:00 Test Item Value Reference Range Interpretation Comments Sodium Lvl (test code = Sodium Lvl) 139 135-145 [facility] [place] [id number] 00:20:00 Test Item Value Reference Range Interpretation Comments Potassium Lvl (test code = Potassium 4.9 3.5-5.1 Lvl) [facility] [id number] 00:20:00 Test Item Value Reference Range Interpretation Comments Chloride Lvl (test code = Chloride Lvl) 105 95-109 [facility] [id number] 00:20:00 Test Item Value Reference Range Interpretation Comments CO2 (test code = CO2) 30 24-32 [facility] [id number] 00:20:00 Test Item Value Reference Range Interpretation Comments Calcium Lvl (test code = Calcium Lvl) 9.5 8.5-10.5 [facility] [id number] 00:20:00 Test Item Value Reference Range Interpretation Comments AGAP (test code = AGAP) 8.9 10.0-20.0 [facility] [id number] 00:20:00 Test Item Value Reference Range Interpretation Comments eGFR (test code = eGFR) 129 [facility]2022-04-09 00:20:00 Test Item Value Reference Range Interpretation Comments Lactic Acid Lvl (test code = Lactic 1.2 0.5-2.2 Acid Lvl) [facility]2022-04-09 00:20:00 Test Item Value Reference Range Interpretation Comments Procalcitonin Lvl (test 0.09 See_Comment [Au tomated message] code = Procalcitonin Lvl) e system which generated this result transmitted ref erence range: <=0.10. The reference range was not used to interpr et this result as normal/abnormal . [facility] CenterQsrspgiOPFDYNMRGH5338-90-91 00:20:00 Test Item Value Reference Range Interpretation Comments WBC (test code = WBC) 10.1 3.7-10.4 [place] 081492-04-09 00:20:00 Test Item Value Reference Range Interpretation Comments RBC (test code = RBC) 5.14 4.70-6.10 [facility] CenterGsrmuakIWGEGSHRAB4649-16-72 00:20:00 Test Item Value Reference Range Interpretation Comments Hgb (test code = Hgb) 15.5 14.0-18.0 [facility] CenterWeqjzslYWTZVEFWFY3902-53-60 00:20:00 Test Item Value Reference Range Interpretation Comments Hct (test code = Hct) 46.5 42.0-54.0 [place] 081492-04-09 00:20:00 Test Item Value Reference Range Interpretation Comments MCV (test code = MCV) 90.5 80.0-94.0 [place] 081492-04-09 00:20:00 Test Item Value Reference Range Interpretation Comments MCH (test code = MCH) 30.1 pg 27.0-31.0 [facility] CenterQssuovpCUBJDQWTZU2898-27-95 00:20:00 Test Item Value Reference Range Interpretation Comments MCHC (test code = MCHC) 33.3 32.0-36.0 [facility] CenterDspurigWQASOBZKRN4613-54-97 00:20:00 Test Item Value Reference Range Interpretation Comments RDW (test code = RDW) 15.7 11.5-14.5 [facility]2022-04-09 00:20:00 Test Item Value Reference Range Interpretation Comments Procalcitonin Lvl (test 0.09 See_Comment [Au tomated message] code = Procalcitonin Lvl) Th e system which generated this result transmitted ref erence range: <=0.10. The reference range was not used to interpr et this result as normal/abnormal . [facility] CenterQoeswsbJPILHALISP0819-69-64 00:20:00 Test Item Value Reference Range Interpretation Comments Platelet (test code = Platelet) 302 133-450 [facility] CenterRkjhbamOCPUEARWGJ7961-65-80 00:20:00 Test Item Value Reference Range Interpretation Comments MPV (test code = MPV) 8.9 7.4-10.4 [facility] CenterQerfhleBBUQXEELSQ8903-06-05 00:20:00 Test Item Value Reference Range Interpretation Comments Sed Rate (test code = 17 See_Comment [Auto mated message] The Sed Rate) system which ge nerated this result transmit lester reference range : <=15. The reference range was not used to interpr et this result as dany l/abnormal. [facility] CenterRrogeibZJVYDAZIDT6975-77-53 00:20:00 Test Item Value Reference Range Interpretation Comments PT (test code = PT) 13.1 s 12.0-14.7 [facility] CenterWonysyxEHLKKCEJUE4633-04-21 00:20:00 Test Item Value Reference Range Interpretation Comments INR (test code = INR) 1.00 1 0.85-1.17 [facility] CenterKahonteGIDYQWDHGG7235-45-25 00:20:00 Test Item Value Reference Range Interpretation Comments PTT (test code = PTT) 31.5 s 22.9-35.8 [place] 081492-04-09 00:20:00 Test Item Value Reference Range Interpretation Comments Segs (test code = Segs) 68.7 45.0-75.0 [place] 081492-04-09 00:20:00 Test Item Value Reference Range Interpretation Comments Lymphocytes (test code = Lymphocytes) 19.6 20.0-40.0 [place] 081492-04-09 00:20:00 Test Item Value Reference Range Interpretation Comments Monocytes (test code = Monocytes) 9.4 2.0-12.0 [place] 081492-04-09 00:20:00 Test Item Value Reference Range Interpretation Comments Eosinophils (test code = 1.4 See_Comment [A utomated message] The Eosinophils) system which ge nerated this result tra nsmitted reference range : <=4.0. The reference r boubacar was not used to int erpret this result as normal/abnormal . [facility] CenterPvivvqoODILVOOLCW8047-54-69 00:20:00 Test Item Value Reference Range Interpretation Comments Basophils (test code = 0.9 See_Comment [Aut omated message] The Basophils) system which ge nerated this result tra nsmitted reference range : <=1.0. The reference r boubacar was not used to int erpret this result as normal/abnormal . [facility] CenterHahdtygDNLATOFUUT5871-30-35 00:20:00 Test Item Value Reference Range Interpretation Comments Neutrophils # (test code = Neutrophils 6.9 1.5-8.1 #) [facility] CenterOysinqmIRYQCZYMTP1572-89-63 00:20:00 Test Item Value Reference Range Interpretation Comments Lymphocytes # (test code = Lymphocytes 2.0 1.0-5.5 #) [facility] CenterQfsjzzyBCQFUGUXPK7582-04-22 00:20:00 Test Item Value Reference Range Interpretation Comments Monocytes # (test code 1.0 See_Comment [Aut omated message] The = Monocytes #) system which generated this result tra nsmitted reference range : <=0.8. The reference r boubacar was not used to int erpret this result as normal/abnormal . [facility] CenterYohtgrpMJFZKTZPNM4438-08-01 00:20:00 Test Item Value Reference Range Interpretation Comments Eosinophils # (test code 0.1 See_Comment [A utomated message] The = Eosinophils #) system [facility] h generated this result tra nsmitted reference range : <=0.5. The reference r boubacar was not used to int erpret this result as normal/abnormal . [facility] CenterComzguzQYFAPKTQKF4689-12-64 00:20:00 Test Item Value Reference Range Interpretation Comments Basophils # (test code 0.1 See_Comment [Aut omated message] The = Basophils #) system which generated this result tra nsmitted reference range : <=0.2. The reference r boubacar was not used to int erpret this result as normal/abnormal . [facility] CentralWotbwjdSKEVCWHSDZ1045-07-77 00:20:00 Test Item Value Reference Range Interpretation Comments C-REACTIVE PROTEIN (test code = 13.2 C-REACTIVE PROTEIN) [facility] CenterNltadatXKTRKSBOLY3223-86-27 00:20:00 Test Item Value Reference Range Interpretation Comments WBC (test code = WBC) 10.1 3.7-10.4 [facility] CenterCvvnawaRVRZLNJMAS3913-66-90 00:20:00 Test Item Value Reference Range Interpretation Comments RBC (test code = RBC) 5.14 4.70-6.10 [facility] CenterWomlcyiWZISEBJLKH7303-53-49 00:20:00 Test Item Value Reference Range Interpretation Comments Hgb (test code = Hgb) 15.5 14.0-18.0 [facility] CenterEszoyitIFALBHQTUB6344-60-70 00:20:00 Test Item Value Reference Range Interpretation Comments Hct (test code = Hct) 46.5 42.0-54.0 [facility] CenterOmeaifaQGIGNVLKIP2732-72-89 00:20:00 Test Item Value Reference Range Interpretation Comments MCV (test code = MCV) 90.5 80.0-94.0 [facility] CenterOtoldslCALYAUWYHG0523-93-91 00:20:00 Test Item Value Reference Range Interpretation Comments MCH (test code = MCH) 30.1 pg 27.0-31.0 [facility] CenterHreitdpLGSFRYDXXE0243-87-61 00:20:00 Test Item Value Reference Range Interpretation Comments MCHC (test code = MCHC) 33.3 32.0-36.0 [facility] CenterKosvbbfUJJXAEVCLV2686-04-62 00:20:00 Test Item Value Reference Range Interpretation Comments RDW (test code = RDW) 15.7 11.5-14.5 [facility] CenterBdsittfFEZDQNUTKQ2701-62-77 00:20:00 Test Item Value Reference Range Interpretation Comments Platelet (test code = Platelet) 302 133-450 [facility] CenterZzdbwwnBGQILGDZNO6878-21-47 00:20:00 Test Item Value Reference Range Interpretation Comments MPV (test code = MPV) 8.9 7.4-10.4 [facility] CenterNkvrxinJQPATSLIHH0532-23-36 00:20:00 Test Item Value Reference Range Interpretation Comments Sed Rate (test code = 17 See_Comment [Auto mated message] The Sed Rate) system which ge nerated this result transmit lester reference range : <=15. The reference range was not used to interpr et this result as dany l/abnormal. [facility] CenterZwcsjssBQOXHLIZVJ1943-65-32 00:20:00 Test Item Value Reference Range Interpretation Comments PT (test code = PT) 13.1 s 12.0-14.7 [facility] CenterBkguwmtPWTRJLMQCM9478-59-17 00:20:00 Test Item Value Reference Range Interpretation Comments INR (test code = INR) 1.00 1 0.85-1.17 [facility] CenterFbdhkxvZKLKHRNYXN6672-25-12 00:20:00 Test Item Value Reference Range Interpretation Comments PTT (test code = PTT) 31.5 s 22.9-35.8 [facility] CenterEjuplzqILCEIUEOTB7047-99-09 00:20:00 Test Item Value Reference Range Interpretation Comments Segs (test code = Segs) 68.7 45.0-75.0 [facility] CenterRhgzyblHSHZCYRXDO7587-89-57 00:20:00 Test Item Value Reference Range Interpretation Comments Lymphocytes (test code = Lymphocytes) 19.6 20.0-40.0 [facility] CenterEivamqsLURMBQMFCN4106-36-43 00:20:00 Test Item Value Reference Range Interpretation Comments Monocytes (test code = Monocytes) 9.4 2.0-12.0 [facility] CenterSwxlnthKEBHJPWEJT3281-86-68 00:20:00 Test Item Value Reference Range Interpretation Comments Eosinophils (test code = 1.4 See_Comment [A utomated message] The Eosinophils) system which ge nerated this result tra nsmitted reference range : <=4.0. The reference r boubacar was not used to int erpret this result as normal/abnormal . [facility] CenterUmpukojWRYAYPVWLI8413-51-38 00:20:00 Test Item Value Reference Range Interpretation Comments Basophils (test code = 0.9 See_Comment [Aut omated message] The Basophils) system which ge nerated this result tra nsmitted reference range : <=1.0. The reference r boubacar was not used to int erpret this result as normal/abnormal . [facility] CenterQyjqpioUTAUOKWXFJ7718-15-55 00:20:00 Test Item Value Reference Range Interpretation Comments Neutrophils # (test code = Neutrophils 6.9 1.5-8.1 #) [facility] CenterNqmykdmVYRFUFXZSY4007-23-11 00:20:00 Test Item Value Reference Range Interpretation Comments Lymphocytes # (test code = Lymphocytes 2.0 1.0-5.5 #) [facility] CenterBiycsspRUQIHRKDFH1795-64-14 00:20:00 Test Item Value Reference Range Interpretation Comments Monocytes # (test code 1.0 See_Comment [Aut omated message] The = Monocytes #) system which generated this result tra nsmitted reference range : <=0.8. The reference r boubacar was not used to int erpret this result as normal/abnormal . [facility] CenterEfijmmxKHEQVTRGIZ1719-27-62 00:20:00 Test Item Value Reference Range Interpretation Comments Eosinophils # (test code 0.1 See_Comment [A utomated message] The = Eosinophils #) system ic h generated this result tra nsmitted reference range : <=0.5. The reference r boubacar was not used to int erpret this result as normal/abnormal . [facility] CenterOibqujpVREGSHNPSN5736-97-97 00:20:00 Test Item Value Reference Range Interpretation Comments Basophils # (test code 0.1 See_Comment [Aut omated message] The = Basophils #) system which generated this result tra nsmitted reference range : <=0.2. The reference r boubacar was not used to int erpret this result as normal/abnormal . [facility] CentralWoipeqvJPTCQFGFZH3422-51-63 00:20:00 Test Item Value Reference Range Interpretation Comments C-REACTIVE PROTEIN (test code = 13.2 C-REACTIVE PROTEIN) [facility] WITH UIKQ6425-23-06 04:47:32 Test Item Value Reference Range Interpretation Comments WBC (test code = See_Comment H [Automated 3690-2) message] The sy stem which generated this result transmitted reference range : 4.20 - 10.70 10*3/?L. The reference range was not used to interpret this result as normal/abnormal . RBC (test code = See_Comment [Automated 649-8) message] The sy stem which generated this [...] RDW-SD (test code = 45.7 fL 38.5-51.6 38717-5) RDW-CV (test code = 14.6 % 12.1-15.4 788-0) PLT (test code = See_Comment [Automated 777-3) message] The sy stem which generated this result transmitted reference range : 150 - 328 10*3/ ?L. The reference r boubacar was not used to interpret this result as normal/abnormal . MPV (test code = 11.0 fL 9.8-13.0 32465-7) NRBC/100 WBC (test See_Comment [Automat ed code = 5849125607) message] The system which generated this result transmitted reference range : 0.0 - 10.0 /100 WBCs. The refer ence range was not u sed to interpret th is result as normal/abnormal . NRBC x10^3 (test code <0.01 See_Comment [Auto mated = [id number]) message] The s ystem which generated this result transmitted reference range : 10*3/?L. The reference range was not used to interpret this result as normal/abnormal . GRAN MAT (NEUT) % 72.2 % (test code = 770-8) IMM GRAN % (test code 0.60 % = 8041008817) LYMPH % (test code = 17.7 % 736-9) MONO % (test code = 7.4 % 5905-5) EOS % (test code = 1.8 % 713-8) BASO % (test code = 0.3 % 706-2) GRAN MAT x10^3(ANC) 9.09 10*3/uL 1.99-6.95 H (test code = 9361100695) IMM GRAN x10^3 (test 0.07 10*3/uL 0.00-0.06 H code = 7583012566) LYMPH x10^3 (test code 2.22 10*3/uL 1.09-3.23 = 731-0) MONO x10^3 (test code 0.93 10*3/uL 0.36-1.02 = 742-7) EOS x10^3 (test code = 0.22 10*3/uL 0.06-0.53 711-2) BASO x10^3 (test code 0.04 10*3/uL 0.01-0.09 = 704-7) Lab Interpretation Abnormal (test code = 88671-6) [facility]. METABOLIC PANEL (42110)2021-10-16 04:36:41 Test Item Value Reference Range Interpretation Comments NA (test code = 138 mmol/L 135-145 9959322763) K (test code = 4.6 mmol/L 3.5-5.0 0701762503) CL (test code = 105 mmol/L 98-108 7107834761) CO2 TOTAL (test code = 21 mmol/L 23-31 L 5313086481) AGAP (test code = 2-16 2935101701) BUN (test code = 13 mg/dL 7-23 6521178193) GLUCOSE (test code = 167 mg/dL 70-110 H 8522778094) CREATININE (test code = 0.48 mg/dL 0.60-1.25 L 8946492636) TOTAL BILI (test code = 0.8 mg/dL 0.1-1.4 1606723870) CALCIUM (test code = 9.3 mg/dL 8.6-10.6 6523221490) T PROTEIN (test code = 7.6 g/dL 6.3-8.2 7346854359) ALBUMIN (test code = 4.2 g/dL 3.5-5.0 3292975776) ALK PHOS (test code = 98 U/L 34-122 5446581790) ALTv (test code = 71 U/L 5-50 H 1742-6) AST(SGOT) (test code = 36 U/L 13-40 9161118428) eGFR (test code = mL/min/1.73m2 0278168096) ARPITA (test code = ARPITA) Association of [...] tests). Lab Interpretation Abnormal (test code = 85309-4) [facility] Test Item Value Reference Range Interpretation Comments MAGNESIUM (test code = 4627565791) 1.6 mg/dL 1.7-2.4 L Lab Interpretation (test code = Abnormal 31653-5) [facility] TDXCBTZ1300-81-56 07:52:00 Test Item Value Reference Range Interpretation Comments ABO/Rh (test code = ABO/Rh) AB POS [facility] ULKCIZF2986-48-47 07:52:00 Test Item Value Reference Range Interpretation Comments Antibody Scrn (test Negative (10/09/21 2:52 code = Antibody Scrn) AM) [facility] BZPGW3749-53-09 07:52:00 Test Item Value Reference Range Interpretation Comments Glucose Lvl (test code = Glucose Lvl) 291 70-99 [facility] PQLVD6715-61-07 07:52:00 Test Item Value Reference Range Interpretation Comments BUN (test code = BUN) 16 7- [facility] MGJZH0484-87-50 07:52:00 Test Item Value Reference Range Interpretation Comments Creatinine Lvl (test code = Creatinine 0.83 0.50-1.40 Lvl) [facility] DZEBR5517-02-72 07:52:00 Test Item Value Reference Range Interpretation Comments Sodium Lvl (test code = Sodium Lvl) 138 135-145 [place] 238832-03-28 07:52:00 Test Item Value Reference Range Interpretation Comments Potassium Lvl (test code = Potassium 4.7 3.5-5.1 Lvl) [place] 238832-03-28 07:52:00 Test Item Value Reference Range Interpretation Comments Chloride Lvl (test code = Chloride Lvl) 113 95-109 [place] 238832-03-28 07:52:00 Test Item Value Reference Range Interpretation Comments CO2 (test code = CO2) 18 24-32 [place] 238832-03-28 07:52:00 Test Item Value Reference Range Interpretation Comments AGAP (test code = AGAP) 11.7 10.0-20.0 [place] 238832-03-28 07:52:00 Test Item Value Reference Range Interpretation Comments Calcium Lvl (test code = Calcium Lvl) 9.4 8.5-10.5 [place] 238832-03-28 07:52:00 Test Item Value Reference Range Interpretation Comments eGFR (test code = eGFR) 113 [place] 081492-03-28 07:52:00 Test Item Value Reference Range Interpretation Comments WBC (test code = WBC) 5.5 3.7-10.4 [place] 081492-03-28 07:52:00 Test Item Value Reference Range Interpretation Comments RBC (test code = RBC) 5.53 4.70-6.10 [place] 081492-03-28 07:52:00 Test Item Value Reference Range Interpretation Comments Hgb (test code = Hgb) 16.3 14.0-18.0 [place] 6[address]47-03-28 07:52:00 Test Item Value Reference Range Interpretation Comments Hct (test code = Hct) 50.5 42.0-54.0 [place] 63747-03-28 07:52:00 Test Item Value Reference Range Interpretation Comments MCV (test code = MCV) 91.3 80.0-94.0 [place] 081492-03-28 07:52:00 Test Item Value Reference Range Interpretation Comments MCH (test code = MCH) 29.5 pg 27.0-31.0 [place] 081492-03-28 07:52:00 Test Item Value Reference Range Interpretation Comments MCHC (test code = MCHC) 32.3 32.0-36.0 [facility]ByieqkgOAYHNRYMIC7160-05-38 07:52:00 Test Item Value Reference Range Interpretation Comments RDW (test code = RDW) 15.4 11.5-14.5 [facility]villePefymitQVQWBTBKAH5689-22-28 07:52:00 Test Item Value Reference Range Interpretation Comments Platelet (test code = Platelet) 210 133-450 [facility]villeNqzqeyqFQNXLAEHOC9135-72-06 07:52:00 Test Item Value Reference Range Interpretation Comments MPV (test code = MPV) 9.3 7.4-10.[address] [facility] Dyn OPJTFOK7179-27-76 07:52:00 Test Item Value Reference Range Interpretation Comments ABO/Rh (test code = ABO/Rh) AB POS [facility] EXZPCWG1151-21-39 07:52:00 Test Item Value Reference Range Interpretation Comments Antibody Scrn (test Negative (10/09/21 2:52 code = Antibody Scrn) AM) [facility] JSAHH5725-71-37 07:52:00 Test Item Value Reference Range Interpretation Comments Glucose Lvl (test code = Glucose Lvl) 291 70-[address] [facility] Carlotz FYVWW1328-61-56 07:52:00 Test Item Value Reference Range Interpretation Comments BUN (test code = BUN) 16 7-[address] [facility] Carlotz YUJTQ6223-21-11 07:52:00 Test Item Value Reference Range Interpretation Comments Creatinine Lvl (test code = Creatinine 0.83 0.50-1.40 Lvl) [facility] ZFHPV6396-59-78 07:52:00 Test Item Value Reference Range Interpretation Comments Sodium Lvl (test code = Sodium Lvl) 138 135-145 [facility] HPDSV4581-03-12 07:52:00 Test Item Value Reference Range Interpretation Comments Potassium Lvl (test code = Potassium 4.7 3.5-5.1 Lvl) [facility] CFKWZ5508-45-18 07:52:00 Test Item Value Reference Range Interpretation Comments Chloride Lvl (test code = Chloride Lvl) 113 95-109 [facility] TKXRO6828-62-76 07:52:00 Test Item Value Reference Range Interpretation Comments CO2 (test code = CO2) 18 24-32 [facility]2022-03-28 07:52:00 Test Item Value Reference Range Interpretation Comments AGAP (test code = AGAP) 11.7 10.0-20.0 [facility]2022-03-28 07:52:00 Test Item Value Reference Range Interpretation Comments Calcium Lvl (test code = Calcium Lvl) 9.4 8.5-10.5 [facility]2022-03-28 07:52:00 Test Item Value Reference Range Interpretation Comments eGFR (test code = eGFR) 113 [facility] CenterQecwakoYQOYIFHINI8706-44-89 07:52:00 Test Item Value Reference Range Interpretation Comments WBC (test code = WBC) 5.5 3.7-10.4 [place] 081492-03-28 07:52:00 Test Item Value Reference Range Interpretation Comments RBC (test code = RBC) 5.53 4.70-6.10 [place] 081492-03-28 07:52:00 Test Item Value Reference Range Interpretation Comments Hgb (test code = Hgb) 16.3 14.0-18.0 [place] 081492-03-28 07:52:00 Test Item Value Reference Range Interpretation Comments Hct (test code = Hct) 50.5 42.0-54.0 [place] 081492-03-28 07:52:00 Test Item Value Reference Range Interpretation Comments MCV (test code = MCV) 91.3 80.0-94.0 [place] 081492-03-28 07:52:00 Test Item Value Reference Range Interpretation Comments MCH (test code = MCH) 29.5 pg 27.0-31.0 [place] 081492-03-28 07:52:00 Test Item Value Reference Range Interpretation Comments MCHC (test code = MCHC) 32.3 32.0-36.0 [place] 081492-03-28 07:52:00 Test Item Value Reference Range Interpretation Comments RDW (test code = RDW) 15.4 11.5-14.5 [place] 081492-03-28 07:52:00 Test Item Value Reference Range Interpretation Comments Platelet (test code = Platelet) 210 133-450 [place] 081492-03-28 07:52:00 Test Item Value Reference Range Interpretation Comments MPV (test code = MPV) 9.3 7.4-10.4 [place] 238832-03-27 10:12:00 Test Item Value Reference Range Interpretation Comments Glucose Lvl (test code = Glucose Lvl) 115 70-99 [place] 238832-03-27 10:12:00 Test Item Value Reference Range Interpretation Comments BUN (test code = BUN) 18 7-22 [place] 238832-03-27 10:12:00 Test Item Value Reference Range Interpretation Comments Creatinine Lvl (test code = Creatinine 0.78 0.50-1.40 Lvl) [place] 238832-03-27 10:12:00 Test Item Value Reference Range Interpretation Comments Sodium Lvl (test code = Sodium Lvl) 138 135-145 [place] 238832-03-27 10:12:00 Test Item Value Reference Range Interpretation Comments Potassium Lvl (test code = Potassium 4.6 3.5-5.1 Lvl) [place] 238832-03-27 10:12:00 Test Item Value Reference Range Interpretation Comments Chloride Lvl (test code = Chloride Lvl) 111 95-109 [place] 238832-03-27 10:12:00 Test Item Value Reference Range Interpretation Comments CO2 (test code = CO2) 21 24-32 [place] 238832-03-27 10:12:00 Test Item Value Reference Range Interpretation Comments AGAP (test code = AGAP) 10.6 10.0-20.0 [place] 238832-03-27 10:12:00 Test Item Value Reference Range Interpretation Comments Calcium Lvl (test code = Calcium Lvl) 8.6 8.5-10.5 [place] 238832-03-27 10:12:00 Test Item Value Reference Range Interpretation Comments eGFR (test code = eGFR) 116 [place] 081492-03-27 10:12:00 Test Item Value Reference Range Interpretation Comments WBC (test code = WBC) 8.2 3.7-10.4 [place] 081492-03-27 10:12:00 Test Item Value Reference Range Interpretation Comments RBC (test code = RBC) 5.14 4.70-6.10 [address]03-27 10:12:00 Test Item Value Reference Range Interpretation Comments Hgb (test code = Hgb) 15.5 14.0-18.0 [place] [address]-03-27 10:12:00 Test Item Value Reference Range Interpretation Comments Hct (test code = Hct) 46.0 42.0-54.0 [place] [address]-03-27 10:12:00 Test Item Value Reference Range Interpretation Comments MCV (test code = MCV) 89.5 80.0-94.0 [place] [address]-03-27 10:12:00 Test Item Value Reference Range Interpretation Comments MCH (test code = MCH) 30.2 pg 27.0-31.0 [place] [address]-03-27 10:12:00 Test Item Value Reference Range Interpretation Comments MCHC (test code = MCHC) 33.8 32.0-36.0 [place] 081492-03-27 10:12:00 Test Item Value Reference Range Interpretation Comments RDW (test code = RDW) 15.3 11.5-14.5 [place] [address]-03-27 10:12:00 Test Item Value Reference Range Interpretation Comments Platelet (test code = Platelet) 358 133-450 [place] 081492-03-27 10:12:00 Test Item Value Reference Range Interpretation Comments MPV (test code = MPV) 8.3 7.4-10.4 [facility]2022-03-27 10:12:00 Test Item Value Reference Range Interpretation Comments Glucose Lvl (test code = Glucose Lvl) 115 70-99 [facility]2022-03-27 10:12:00 Test Item Value Reference Range Interpretation Comments BUN (test code = BUN) 18 7-22 [place] 238832-03-27 10:12:00 Test Item Value Reference Range Interpretation Comments Creatinine Lvl (test code = Creatinine 0.78 0.50-1.40 Lvl) [facility]2022-03-27 10:12:00 Test Item Value Reference Range Interpretation Comments Sodium Lvl (test code = Sodium Lvl) 138 135-145 [place] 238832-03-27 10:12:00 Test Item Value Reference Range Interpretation Comments Potassium Lvl (test code = Potassium 4.6 3.5-5.1 Lvl) [place] 238832-03-27 10:12:00 Test Item Value Reference Range Interpretation Comments Chloride Lvl (test code = Chloride Lvl) 111 95-109 [place] 238832-03-27 10:12:00 Test Item Value Reference Range Interpretation Comments CO2 (test code = CO2) 21 24-32 [place] 238832-03-27 10:12:00 Test Item Value Reference Range Interpretation Comments AGAP (test code = AGAP) 10.6 10.0-20.0 [place] 238832-03-27 10:12:00 Test Item Value Reference Range Interpretation Comments Calcium Lvl (test code = Calcium Lvl) 8.6 8.5-10.5 [place] 238832-03-27 10:12:00 Test Item Value Reference Range Interpretation Comments eGFR (test code = eGFR) 116 [place] 081492-03-27 10:12:00 Test Item Value Reference Range Interpretation Comments WBC (test code = WBC) 8.2 3.7-10.4 [place] [address]-03-27 10:12:00 Test Item Value Reference Range Interpretation Comments RBC (test code = RBC) 5.14 4.70-6.10 [place] 081492-03-27 10:12:00 Test Item Value Reference Range Interpretation Comments Hgb (test code = Hgb) 15.5 14.0-18.0 [place] [address]-03-27 10:12:00 Test Item Value Reference Range Interpretation Comments Hct (test code = Hct) 46.0 42.0-54.0 [place] [address]-03-27 10:12:00 Test Item Value Reference Range Interpretation Comments MCV (test code = MCV) 89.5 80.0-94.0 [place] [address]-03-27 10:12:00 Test Item Value Reference Range Interpretation Comments MCH (test code = MCH) 30.2 pg 27.0-31.0 [place] [address]-03-27 10:12:00 Test Item Value Reference Range Interpretation Comments MCHC (test code = MCHC) 33.8 32.0-36.0 [place] 081492-03-27 10:12:00 Test Item Value Reference Range Interpretation Comments RDW (test code = RDW) 15.3 11.5-14.5 [place] 081492-03-27 10:12:00 Test Item Value Reference Range Interpretation Comments Platelet (test code = Platelet) 358 133-450 [place] 081492-03-27 10:12:00 Test Item Value Reference Range Interpretation Comments MPV (test code = MPV) 8.3 7.4-10.4 [place] 238832-03-27 06:53:00 Test Item Value Reference Range Interpretation Comments Glucose Lvl (test code = Glucose Lvl) 167 70-99 [place] 238832-03-27 06:53:00 Test Item Value Reference Range Interpretation Comments BUN (test code = BUN) 16 7-22 [place] 238832-03-27 06:53:00 Test Item Value Reference Range Interpretation Comments Creatinine Lvl (test code = Creatinine 0.99 0.50-1.40 Lvl) [place] 238832-03-27 06:53:00 Test Item Value Reference Range Interpretation Comments Sodium Lvl (test code = Sodium Lvl) 141 135-145 [place] 238832-03-27 06:53:00 Test Item Value Reference Range Interpretation Comments Potassium Lvl (test code = Potassium 4.5 3.5-5.1 Lvl) [place] 238832-03-27 06:53:00 Test Item Value Reference Range Interpretation Comments Chloride Lvl (test code = Chloride Lvl) 111 95-109 [place] 238832-03-27 06:53:00 Test Item Value Reference Range Interpretation Comments CO2 (test code = CO2) 22 24-32 [place] 238832-03-27 06:53:00 Test Item Value Reference Range Interpretation Comments AGAP (test code = AGAP) 12.5 10.0-20.0 [place] 238832-03-27 06:53:00 Test Item Value Reference Range Interpretation Comments Calcium Lvl (test code = Calcium Lvl) 8.6 8.5-10.5 [place] 238832-03-27 06:53:00 Test Item Value Reference Range Interpretation Comments eGFR (test code = eGFR) 98 [place] 238832-03-27 06:53:00 Test Item Value Reference Range Interpretation Comments Glucose Lvl (test code = Glucose Lvl) 167 70-99 [place] 238832-03-27 06:53:00 Test Item Value Reference Range Interpretation Comments BUN (test code = BUN) 16 7-22 [place] 238832-03-27 06:53:00 Test Item Value Reference Range Interpretation Comments Creatinine Lvl (test code = Creatinine 0.99 0.50-1.40 Lvl) [facility]2022-03-27 06:53:00 Test Item Value Reference Range Interpretation Comments Sodium Lvl (test code = Sodium Lvl) 141 135-145 [place] 238832-03-27 06:53:00 Test Item Value Reference Range Interpretation Comments Potassium Lvl (test code = Potassium 4.5 3.5-5.1 Lvl) [place] 238832-03-27 06:53:00 Test Item Value Reference Range Interpretation Comments Chloride Lvl (test code = Chloride Lvl) 111 95-109 [place] 238832-03-27 06:53:00 Test Item Value Reference Range Interpretation Comments CO2 (test code = CO2) 22 24-32 [place] 238832-03-27 06:53:00 Test Item Value Reference Range Interpretation Comments AGAP (test code = AGAP) 12.5 10.0-20.0 [place] 238832-03-27 06:53:00 Test Item Value Reference Range Interpretation Comments Calcium Lvl (test code = Calcium Lvl) 8.6 8.5-10.5 [facility]2022-03-27 06:53:00 Test Item Value Reference Range Interpretation Comments eGFR (test code = eGFR) 98 [facility]SUSC:PT:ISOLATE:ORDQN:[id number] 22:59:00 Test Item Value Reference Range Interpretation Comments Culture: Urine (test >100,000 CFU/mL Proteus code = Culture: mirabilis >100,000 CFU/mL Urine) Providencia stuartii [facility]NIOFURANTOIN:SUSC:PT:ISOLATE:ORDQN:[id number] 22:59:00 Test Item Value Reference Range Interpretation Comments Providencia stuartii Providencia stuartii (test code = Providencia stuartii) [facility] HermannNITROFURANTOIN:SUSC:PT:ISOLATE:ORDQN:[id number] 22:59:00 Test Item Value Reference Range Interpretation Comments Proteus mirabilis (test Proteus mirabilis code = Proteus mirabilis) [facility]Culture: [id number] 22:59:00 Test Item Value Reference Range Interpretation Comments Culture: Urine (test Holding For Better code = Culture: Urine) Growth [facility]villeannNITROFURANTOIN:SUSC:PT:ISOLATE:ORDQN:[id number] 22:59:00 Test Item Value Reference Range Interpretation Comments Culture: Urine (test >100,000 CFU/mL Proteus code = Culture: mirabilis >100,000 CFU/mL Urine) Providencia stuartii [facility] HermannNITROFURANTOIN:SUSC:PT:ISOLATE:ORDQN:[id number] 22:59:00 Test Item Value Reference Range Interpretation Comments Providencia stuartii Providencia stuartii (test code = Providencia stuartii) [facility] HermannNITROFURANTOIN:SUSC:PT:ISOLATE:ORDQN:[id number] 22:59:00 Test Item Value Reference Range Interpretation Comments Proteus mirabilis (test Proteus mirabilis code = Proteus mirabilis) [facility]villeannCulture: [id number] 22:59:00 Test Item Value Reference Range Interpretation Comments Culture: Urine (test Holding For Better code = Culture: Urine) Growth [facility] Carlotz [id number] 21:03:00 Test Item Value Reference Range Interpretation Comments Glucose Lvl (test code = Glucose Lvl) 126 70-99 [facility] GreenvilleFutubra [id number] 21:03:00 Test Item Value Reference Range Interpretation Comments BUN (test code = BUN) 16 7-22 [facility] GreenvilleFut[facility] [id number] 21:03:00 Test Item Value Reference Range Interpretation Comments Creatinine Lvl (test code = Creatinine 0.76 0.50-1.40 Lvl) [facility] GreenvilleFutub[facility] [id number] 21:03:00 Test Item Value Reference Range Interpretation Comments Sodium Lvl (test code = Sodium Lvl) 140 135-145 [place] 238832-03-26 21:03:00 Test Item Value Reference Range Interpretation Comments Potassium Lvl (test code = Potassium 3.3 3.5-5.1 Lvl) [place] 238832-03-26 21:03:00 Test Item Value Reference Range Interpretation Comments Chloride Lvl (test code = Chloride Lvl) 111 95-109 [place] 238832-03-26 21:03:00 Test Item Value Reference Range Interpretation Comments CO2 (test code = CO2) 22 24-32 [place] 238832-03-26 21:03:00 Test Item Value Reference Range Interpretation Comments Calcium Lvl (test code = Calcium Lvl) 8.5 8.5-10.5 [place] 238832-03-26 21:03:00 Test Item Value Reference Range Interpretation Comments AGAP (test code = AGAP) 10.3 10.0-20.0 [place] 238832-03-26 21:03:00 Test Item Value Reference Range Interpretation Comments eGFR (test code = eGFR) 117 [place] 238832-03-26 21:03:00 Test Item Value Reference Range Interpretation Comments Lactic Acid Lvl (test code = Lactic 1.1 0.5-2.2 Acid Lvl) [place] 081492-03-26 21:03:00 Test Item Value Reference Range Interpretation Comments Segs (test code = Segs) 68.9 45.0-75.0 [place] [address]-03-26 21:03:00 Test Item Value Reference Range Interpretation Comments Lymphocytes (test code = Lymphocytes) 20.4 20.0-40.0 [place] [address]-03-26 21:03:00 Test Item Value Reference Range Interpretation Comments Monocytes (test code = Monocytes) 8.2 2.0-12.0 [place] [address]-03-26 21:03:00 Test Item Value Reference Range Interpretation Comments Eosinophils (test code = 2.2 See_Comment [A utomated message] The Eosinophils) system which ge nerated this result tra nsmitted reference range : <=4.0. The reference r boubacar was not used to int erpret this result as normal/abnormal . [facility] [id number] 21:03:00 Test Item Value Reference Range Interpretation Comments Basophils (test code = 0.3 See_Comment [Aut omated message] The Basophils) system which ge nerated this result tra nsmitted reference range : <=1.0. The reference r boubacar was not used to int erpret this result as normal/abnormal . [facility] [id number] 21:03:00 Test Item Value Reference Range Interpretation Comments Neutrophils # (test code = Neutrophils 5.5 1.5-8.1 #) [facility] CenterDqvamoiDLEXVJSJCR6981-14-39 21:03:00 Test Item Value Reference Range Interpretation Comments Lymphocytes # (test code = Lymphocytes 1.6 1.0-5.5 #) [facility] [id number] 21:03:00 Test Item Value Reference Range Interpretation Comments Monocytes # (test code 0.7 See_Comment [Aut omated message] The = Monocytes #) system which generated this result tra nsmitted reference range : <=0.8. The reference r boubacar was not used to int erpret this result as normal/abnormal . [facility] C[id number] 21:03:00 Test Item Value Reference Range Interpretation Comments Eosinophils # (test code 0.2 See_Comment [A utomated message] The = Eosinophils #) system whic h generated this result tra nsmitted reference range : <=0.5. The reference r boubacar was not used to int erpret this result as normal/abnormal . [facility] C[id number] 21:03:00 Test Item Value Reference Range Interpretation Comments WBC (test code = WBC) 8.0 3.7-10.4 [facility] Cent[id number] 21:03:00 Test Item Value Reference Range Interpretation Comments RBC (test code = RBC) 5.37 4.70-6.10 [place] 081492-03-26 21:03:00 Test Item Value Reference Range Interpretation Comments Hgb (test code = Hgb) 15.9 14.0-18.0 [facility] CenterWuexxeyNBXTXATFWB8390-39-14 21:03:00 Test Item Value Reference Range Interpretation Comments Hct (test code = Hct) 47.3 42.0-54.0 [facility] [id number] 21:03:00 Test Item Value Reference Range Interpretation Comments MCV (test code = MCV) 88.1 80.0-94.0 [facility] CenterSvdardpTVCIUSAPZY3219-96-61 21:03:00 Test Item Value Reference Range Interpretation Comments MCH (test code = MCH) 29.6 pg 27.0-31.0 [facility] [id number] 21:03:00 Test Item Value Reference Range Interpretation Comments MCHC (test code = MCHC) 33.6 32.0-36.0 [facility] [id number] 21:03:00 Test Item Value Reference Range Interpretation Comments RDW (test code = RDW) 15.3 11.5-14.5 [facility] C[id number] 21:03:00 Test Item Value Reference Range Interpretation Comments Platelet (test code = Platelet) 370 133-450 [facility] [id number] 21:03:00 Test Item Value Reference Range Interpretation Comments MPV (test code = MPV) 8.1 7.4-10.4 [facility]2022-03-26 21:03:00 Test Item Value Reference Range Interpretation Comments UA Comment 1 (test Suboptimal specimen code = UA Comment 1) received. Results may be inaccurate due to the age of the specimen. Interpret results with caution. [facility] AND [id number] 21:03:00 Test Item Value Reference Range Interpretation Comments UA Color (test code = Yellow *NA*(10/07/21 UA Color) 4:03 PM) [facility] AND [id number] 21:03:00 Test Item Value Reference Range Interpretation Comments UA Turbidity (test code Slight *ABN*(10/07/21 = UA Turbidity) 4:03 PM) [facility] AND [id number] 21:03:00 Test Item Value Reference Range Interpretation Comments UA Spec Grav (test code = UA Spec 1.015 1 Grav) [facility] AND [id number] 21:03:00 Test Item Value Reference Range Interpretation Comments UA pH (test code = UA pH) 5.0 1 5.0-8.0 [facility] AND [id number] 21:03:00 Test Item Value Reference Range Interpretation Comments UA Protein (test code = UA Negative mg/dL Protein) [facility] AND [id number] 21:03:00 Test Item Value Reference Range Interpretation Comments UA Glucose (test code = UA Negative mg/dL Glucose) [facility] AND [id number] 21:03:00 Test Item Value Reference Range Interpretation Comments UA Ketones (test code = UA Negative mg/dL Ketones) [facility] AND [id number] 21:03:00 Test Item Value Reference Range Interpretation Comments UA Bili (test code = Negative *NA*(10/07/21 UA Bili) 4:03 PM) [facility] AND [id number] 21:03:00 Test Item Value Reference Range Interpretation Comments UA Blood (test code = Negative (10/07/21 4:03 UA Blood) PM) [facility] AND [id number] 21:03:00 Test Item Value Reference Range Interpretation Comments UA Urobilinogen (test code = UA no gt 0.1-1.0 Urobilinogen) [facility] AND [id number] 21:03:00 Test Item Value Reference Range Interpretation Comments UA Nitrite (test code Negative (10/07/21 4:03 = UA Nitrite) PM) [facility] AND [id number] 21:03:00 Test Item Value Reference Range Interpretation Comments UA Leuk Est (test code Large *ABN*(10/07/21 = UA Leuk Est) 4:03 PM) [facility] AND [id number] 21:03:00 Test Item Value Reference Range Interpretation Comments UA WBC (test code = 64 See_Comment [Automa lester message] The UA WBC) system which ge nerated this result transmit lester reference range : <=5. The reference range was not used to interpr et this result as dany l/abnormal. [facility] AND [id number] 21:03:00 Test Item Value Reference Range Interpretation Comments UA RBC (test code = 2 See_Comment [Automa lester message] The UA RBC) system which ge nerated this result transmit lester reference range : <=2. The reference range was not used to interpr et this result as dany l/abnormal. [facility] AND [id number] 21:03:00 Test Item Value Reference Range Interpretation Comments UA Mucus (test code = UA Mucus) Few /LPF [facility] AND [id number] 21:03:00 Test Item Value Reference Range Interpretation Comments UA Sq Epi (test code = UA Sq Epi) None Seen [facility]2022-03-26 21:03:00 Test Item Value Reference Range Interpretation Comments Glucose Lvl (test code = Glucose Lvl) 126 70-99 [facility]2022-03-26 21:03:00 Test Item Value Reference Range Interpretation Comments BUN (test code = BUN) 16 7-22 [facility]2022-03-26 21:03:00 Test Item Value Reference Range Interpretation Comments Creatinine Lvl (test code = Creatinine 0.76 0.50-1.40 Lvl) [facility]2022-03-26 21:03:00 Test Item Value Reference Range Interpretation Comments Sodium Lvl (test code = Sodium Lvl) 140 135-145 [facility]2022-03-26 21:03:00 Test Item Value Reference Range Interpretation Comments Potassium Lvl (test code = Potassium 3.3 3.5-5.1 Lvl) [facility]2022-03-26 21:03:00 Test Item Value Reference Range Interpretation Comments Chloride Lvl (test code = Chloride Lvl) 111 95-109 [facility]2022-03-26 21:03:00 Test Item Value Reference Range Interpretation Comments CO2 (test code = CO2) 22 24-32 [facility]2022-03-26 21:03:00 Test Item Value Reference Range Interpretation Comments Calcium Lvl (test code = Calcium Lvl) 8.5 8.5-10.5 [facility]2022-03-26 21:03:00 Test Item Value Reference Range Interpretation Comments AGAP (test code = AGAP) 10.3 10.0-20.0 [facility]2022-03-26 21:03:00 Test Item Value Reference Range Interpretation Comments eGFR (test code = eGFR) 117 [facility]2022-03-26 21:03:00 Test Item Value Reference Range Interpretation Comments Lactic Acid Lvl (test code = Lactic 1.1 0.5-2.2 Acid Lvl) [id number] 21:03:00 Test Item Value Reference Range Interpretation Comments Segs (test code = Segs) 68.9 45.0-75.0 [place] 081492-03-26 21:03:00 Test Item Value Reference Range Interpretation Comments Lymphocytes (test code = Lymphocytes) 20.4 20.0-40.0 [place] 081492-03-26 21:03:00 Test Item Value Reference Range Interpretation Comments Monocytes (test code = Monocytes) 8.2 2.0-12.0 [place] 081492-03-26 21:03:00 Test Item Value Reference Range Interpretation Comments Eosinophils (test code = 2.2 See_Comment [A utomated message] The Eosinophils) system which ge nerated this result tra nsmitted reference range : <=4.0. The reference r boubacar was not used to int erpret this result as normal/abnormal . [place] 081492-03-26 21:03:00 Test Item Value Reference Range Interpretation Comments Basophils (test code = 0.3 See_Comment [Aut omated message] The Basophils) system which ge nerated this result tra nsmitted reference range : <=1.0. The reference r boubacar was not used to int erpret this result as normal/abnormal . [place] 081492-03-26 21:03:00 Test Item Value Reference Range Interpretation Comments Neutrophils # (test code = Neutrophils 5.5 1.5-8.1 #) [place] 081492-03-26 21:03:00 Test Item Value Reference Range Interpretation Comments Lymphocytes # (test code = Lymphocytes 1.6 1.0-5.5 #) [place] 081492-03-26 21:03:00 Test Item Value Reference Range Interpretation Comments Monocytes # (test code 0.7 See_Comment [Aut omated message] The = Monocytes #) system which generated this result tra nsmitted reference range : <=0.8. The reference r boubacar was not used to int erpret this result as normal/abnormal . [place] 081492-03-26 21:03:00 Test Item Value Reference Range Interpretation Comments Eosinophils # (test code 0.2 See_Comment [A utomated message] The = Eosinophils #) system whic h generated this result tra nsmitted reference range : <=0.5. The reference r boubacar was not used to int erpret this result as normal/abnormal . [facility] [id number] 21:03:00 Test Item Value Reference Range Interpretation Comments WBC (test code = WBC) 8.0 3.7-10.4 [facility] CenterJundfhvXTQQLVNSGB7821-26-56 21:03:00 Test Item Value Reference Range Interpretation Comments RBC (test code = RBC) 5.37 4.70-6.10 [facility] CenterZjcltcxAGXNTYJGVI4605-60-00 21:03:00 Test Item Value Reference Range Interpretation Comments Hgb (test code = Hgb) 15.9 14.0-18.0 [facility] CenterAwcrzleKUMQBKEOEV2708-89-21 21:03:00 Test Item Value Reference Range Interpretation Comments Hct (test code = Hct) 47.3 42.0-54.0 [facility] [id number] 21:03:00 Test Item Value Reference Range Interpretation Comments MCV (test code = MCV) 88.1 80.0-94.0 [facility] CenterZnigudkWOGIGWSRAI6280-73-66 21:03:00 Test Item Value Reference Range Interpretation Comments MCH (test code = MCH) 29.6 pg 27.0-31.0 [facility] CenterSuzubipVPPOZCVIAJ6074-43-21 21:03:00 Test Item Value Reference Range Interpretation Comments MCHC (test code = MCHC) 33.6 32.0-36.0 [facility] CenterQofxoxkAJGKQGJGEY0083-55-35 21:03:00 Test Item Value Reference Range Interpretation Comments RDW (test code = RDW) 15.3 11.5-14.5 [facility] CenterAspcywqDIRLUDKQST3565-06-09 21:03:00 Test Item Value Reference Range Interpretation Comments Platelet (test code = Platelet) 370 133-450 [facility] CenterOexqcbgHQKWNUKHGK0086-33-55 21:03:00 Test Item Value Reference Range Interpretation Comments MPV (test code = MPV) 8.1 7.4-10.4 [facility]2022-03-26 21:03:00 Test Item Value Reference Range Interpretation Comments UA Comment 1 (test Suboptimal specimen code = UA Comment 1) received. Results may be inaccurate due to the age of the specimen. Interpret results with caution. [facility]2022-03-26 21:03:00 Test Item Value Reference Range Interpretation Comments UA Color (test code = Yellow *NA*(10/07/21 UA Color) 4:03 PM) [facility] AND [id number] 21:03:00 Test Item Value Reference Range Interpretation Comments UA Turbidity (test code Slight *ABN*(10/07/21 = UA Turbidity) 4:03 PM) [facility] AND [id number] 21:03:00 Test Item Value Reference Range Interpretation Comments UA Spec Grav (test code = UA Spec 1.015 1 Grav) [facility] AND [id number] 21:03:00 Test Item Value Reference Range Interpretation Comments UA pH (test code = UA pH) 5.0 1 5.0-8.0 [facility] AND [id number] 21:03:00 Test Item Value Reference Range Interpretation Comments UA Protein (test code = UA Negative mg/dL Protein) [facility] AND [id number] 21:03:00 Test Item Value Reference Range Interpretation Comments UA Glucose (test code = UA Negative mg/dL Glucose) [facility] AND [id number] 21:03:00 Test Item Value Reference Range Interpretation Comments UA Ketones (test code = UA Negative mg/dL Ketones) [facility] AND [id number] 21:03:00 Test Item Value Reference Range Interpretation Comments UA Bili (test code = Negative *NA*(10/07/21 UA Bili) 4:03 PM) [facility] AND [id number] 21:03:00 Test Item Value Reference Range Interpretation Comments UA Blood (test code = Negative (10/07/21 4:03 UA Blood) PM) [facility] AND [id number] 21:03:00 Test Item Value Reference Range Interpretation Comments UA Urobilinogen (test code = UA no gt 0.1-1.0 Urobilinogen) [facility] AND [id number] 21:03:00 Test Item Value Reference Range Interpretation Comments UA Nitrite (test code Negative (10/07/21 4:03 = UA Nitrite) PM) [facility] AND [id number] 21:03:00 Test Item Value Reference Range Interpretation Comments UA Leuk Est (test code Large *ABN*(10/07/21 = UA Leuk Est) 4:03 PM) [facility] AND [id number] 21:03:00 Test Item Value Reference Range Interpretation Comments UA WBC (test code = 64 See_Comment [Automa lester message] The UA WBC) system which ge nerated this result transmit lester reference range : <=5. The reference range was not used to interpr et this result as dany l/abnormal. [facility] AND [id number] 21:03:00 Test Item Value Reference Range Interpretation Comments UA RBC (test code = 2 See_Comment [Automa lester message] The UA RBC) system which ge nerated this result transmit lester reference range : <=2. The reference range was not used to interpr et this result as dany l/abnormal. [facility] AND [id number] 21:03:00 Test Item Value Reference Range Interpretation Comments UA Mucus (test code = UA Mucus) Few /LPF [facility] AND [id number] 21:03:00 Test Item Value Reference Range Interpretation Comments UA Sq Epi (test code = UA Sq Epi) None [facility] [id number] 09:58:00 Test Item Value Reference Range Interpretation Comments Lactic Acid Lvl (test code = Lactic 2.4 0.5-2.2 Acid Lvl) [facility]AP[facility]5225[facility]72-51 09:58:00 Test Item Value Reference Range Interpretation Comments Sed Rate (test code = 13 See_Comment [Auto mated message] The Sed Rate) system which ge nerated this result transmit lester reference range : <=15. The reference range was not used to interpr et this result as dany l/abnormal. [facility]bhwytvGAYUVGOCRL5413-84-48 09:58:00 Test Item Value Reference Range Interpretation Comments C-REACTIVE PROTEIN (test code = 10.6 C-REACTIVE PROTEIN) [facility] [id number] 09:58:00 Test Item Value Reference Range Interpretation Comments Lactic Acid Lvl (test code = Lactic 2.4 0.5-2.2 Acid Lvl) [facility] CentralBrcwszrAGUWIWBLRL8556-48-04 09:58:00 Test Item Value Reference Range Interpretation Comments Sed Rate (test code = 13 See_Comment [Auto mated message] The Sed Rate) system which ge nerated this result transmit lester reference range : <=15. The reference range was not used to interpr et this result as dany l/abnormal. [facility] CentralBxzaozcDNEUXFFNUR5068-36-69 09:58:00 Test Item Value Reference Range Interpretation Comments C-REACTIVE PROTEIN (test code = 10.6 C-REACTIVE PROTEIN) [facility]2022-03-25 18:36:00 Test Item Value Reference Range Interpretation Comments Protein CSF (test code = Protein CSF) 14 15-45 [place] [id number] 18:36:00 Test Item Value Reference Range Interpretation Comments Glucose CSF (test code = Glucose CSF) 67 45-80 [facility]2022-03-25 18:36:00 Test Item Value Reference Range Interpretation Comments Tube Num CSF (test xxxxxxx (10/06/21 1:36 code = Tube Num CSF) PM) [facility]2022-03-25 18:36:00 Test Item Value Reference Range Interpretation Comments Color CSF (test code Colorless (10/06/21 1:36 = Color CSF) PM) [facility]2022-03-25 18:36:00 Test Item Value Reference Range Interpretation Comments Clarity CSF (test code = Clear (10/06/21 1:36 Clarity CSF) PM) [facility]2022-03-25 18:36:00 Test Item Value Reference Range Interpretation Comments Supernat CSF (test Colorless (10/06/21 1:36 code = Supernat CSF) PM) [facility]2022-03-25 18:36:00 Test Item Value Reference Range Interpretation Comments Nucleated Cells CSF 0 See_Comment [Automa lester message] The (test code = Nucleated syste m which generated Cells CSF) this result tra nsmitted reference range : <=53. The reference r boubacar was not used to int erpret this result as normal/abnormal . [facility]2022-03-25 18:36:00 Test Item Value Reference Range Interpretation Comments RBC CSF (test code = 0 See_Comment [Autom ated message] The RBC CSF) system which ge nerated this result transmit lester reference range : <=03. The reference range was not used to interpr et this result as dany l/abnormal. [place] 628142-03-25 18:36:00 Test Item Value Reference Range Interpretation Comments Comment CSF (test Differential not code = Comment CSF) performed on WBC count of less than 5. [facility] [id number] 18:36:00 Test Item Value Reference Range Interpretation Comments Gram Stain Report Gram Stain Performed By: (test code = Gram [facility] Stain Report) [facility] w/Gram [id number] 18:36:00 Test Item Value Reference Range Interpretation Comments Culture: CSF w/Gram Stain (test No Growth code = Culture: CSF w/Gram Stain) [facility] [id number] 18:36:00 Test Item Value Reference Range Interpretation Comments Protein CSF (test code = Protein CSF) 14 15-45 [facility]2022-03-25 18:36:00 Test Item Value Reference Range Interpretation Comments Glucose CSF (test code = Glucose CSF) 67 45-80 [facility]2022-03-25 18:36:00 Test Item Value Reference Range Interpretation Comments Tube Num CSF (test xxxxxxx (10/06/21 1:36 code = Tube Num CSF) PM) [facility]2022-03-25 18:36:00 Test Item Value Reference Range Interpretation Comments Color CSF (test code Colorless (10/06/21 1:36 = Color CSF) PM) [facility]2022-03-25 18:36:00 Test Item Value Reference Range Interpretation Comments Clarity CSF (test code = Clear (10/06/21 1:36 Clarity CSF) PM) [facility]2022-03-25 18:36:00 Test Item Value Reference Range Interpretation Comments Supernat CSF (test Colorless (10/06/21 1:36 code = Supernat CSF) PM) [facility]2022-03-25 18:36:00 Test Item Value Reference Range Interpretation Comments Nucleated Cells CSF 0 See_Comment [Automa lester message] The (test code = Nucleated syste m which generated Cells CSF) this result tra nsmitted reference range : <=53. The reference r boubacar was not used to int erpret this result as normal/abnormal . [facility]2022-03-25 18:36:00 Test Item Value Reference Range Interpretation Comments RBC CSF (test code = 0 See_Comment [Autom ated message] The RBC CSF) system which ge nerated this result transmit lester reference range : <=03. The reference range was not used to interpr et this result as dany l/abnormal. [facility] [id number] 18:36:00 Test Item Value Reference Range Interpretation Comments Comment CSF (test Differential not code = Comment CSF) performed on WBC count of less than 5. [facility] [id number] 18:36:00 Test Item Value Reference Range Interpretation Comments Gram Stain Report Gram Stain Performed By: (test code = Gram [facility] Stain Report) [facility] CenterCulture: CSF w/Gram [id number] 18:36:00 Test Item Value Reference Range Interpretation Comments Culture: CSF w/Gram Stain (test No Growth code = Culture: CSF w/Gram Stain) [facility] CentralOjpeqpaTAIGFKJYKL0716-12-03 08:28:00 Test Item Value Reference Range Interpretation Comments Coronavirus (COVID-19) Not Detected (10/06/21 OUMOU (test code = 3:28 AM) Coronavirus (COVID-19) OUMOU) [facility]aujksDTVKVKDNYY3352-03-72 08:28:00 Test Item Value Reference Range Interpretation Comments Coronavirus (COVID-19) Not Detected (10/06/21 OUMOU (test code = 3:28 AM) Coronavirus (COVID-19) OUMOU) [facility] [employer] [id number] 06:48:00 Test Item Value Reference Range Interpretation Comments Antibody Scrn (test Negative (10/06/21 1:48 code = Antibody Scrn) AM) [facility] [employer] [id number] 06:48:00 Test Item Value Reference Range Interpretation Comments ABO/Rh (test code = ABO/Rh) AB POS [facility]288[facility] 06:48:00 Test Item Value Reference Range Interpretation Comments Segs (test code = Segs) 70.8 45.0-75.0 [facility]TyftdkkLOHIHXVFIM7544-19-51 06:48:00 Test Item Value Reference Range Interpretation Comments Lymphocytes (test code = Lymphocytes) 20.8 20.0-40.0 [facility]MtnnzosGOKWBEVEPB0878-32-35 06:48:00 Test Item Value Reference Range Interpretation Comments Monocytes (test code = Monocytes) 5.8 2.0-12.0 [place] 081492-03-25 06:48:00 Test Item Value Reference Range Interpretation Comments Eosinophils (test code = 2.3 See_Comment [A utomated message] The Eosinophils) system which ge nerated this result tra nsmitted reference range : <=4.0. The reference r boubacar was not used to int erpret this result as normal/abnormal . [place] 081492-03-25 06:48:00 Test Item Value Reference Range Interpretation Comments Basophils (test code = 0.3 See_Comment [Aut omated message] The Basophils) system which ge nerated this result tra nsmitted reference range : <=1.0. The reference r boubacar was not used to int erpret this result as normal/abnormal . [place] 081492-03-25 06:48:00 Test Item Value Reference Range Interpretation Comments Neutrophils # (test code = Neutrophils 8.4 1.5-8.1 #) [place] 081492-03-25 06:48:00 Test Item Value Reference Range Interpretation Comments Lymphocytes # (test code = Lymphocytes 2.5 1.0-5.5 #) [place] 081492-03-25 06:48:00 Test Item Value Reference Range Interpretation Comments Monocytes # (test code 0.7 See_Comment [Aut omated message] The = Monocytes #) system which generated this result tra nsmitted reference range : <=0.8. The reference r boubacar was not used to int erpret this result as normal/abnormal . [facility] CenterHdlgbqmZBIJPZMWLA4309-13-26 06:48:00 Test Item Value Reference Range Interpretation Comments Eosinophils # (test code 0.3 See_Comment [A utomated message] The = Eosinophils #) system whic h generated this result tra nsmitted reference range : <=0.5. The reference r boubacar was not used to int erpret this result as normal/abnormal . [facility] CenterBilfcvsUPYAEFKZAL2228-50-95 06:48:00 Test Item Value Reference Range Interpretation Comments WBC X 10x3 (test code = WBC X 10x3) 11.9 3.7-10.4 [place] 081492-03-25 06:48:00 Test Item Value Reference Range Interpretation Comments RBC X 10x6 (test code = RBC X 10x6) 5.95 4.70-6.10 [facility] CenterUksesyrECVQUTBNDQ1407-95-93 06:48:00 Test Item Value Reference Range Interpretation Comments Hgb (test code = Hgb) 17.9 14.0-18.0 [facility] CenterXhlohjaDKDBIVRCWX8178-53-64 06:48:00 Test Item Value Reference Range Interpretation Comments Hct (test code = Hct) 52.0 42.0-54.0 [facility] CenterMqamemuXWMPNVVOLM4607-42-70 06:48:00 Test Item Value Reference Range Interpretation Comments MCV (test code = MCV) 87.5 80.0-94.0 [facility] CenterBpvykvkJBOOZUKUYL1673-39-70 06:48:00 Test Item Value Reference Range Interpretation Comments MCH (test code = MCH) 30.2 pg 27.0-31.0 [facility] CenterBllguumSOWNQCZCFN9713-79-12 06:48:00 Test Item Value Reference Range Interpretation Comments MCHC (test code = MCHC) 34.5 32.0-36.0 [facility] CenterPuvjzchDZDPDKXPUZ4216-81-09 06:48:00 Test Item Value Reference Range Interpretation Comments RDW (test code = RDW) 15.4 11.5-14.5 [facility] CenterKpdhmshLZCWYPCTLC8397-36-76 06:48:00 Test Item Value Reference Range Interpretation Comments Platelet (test code = Platelet) 414 133-450 [facility] CenterZqzsnzkAXUKXOVCXR1953-14-68 06:48:00 Test Item Value Reference Range Interpretation Comments MPV (test code = MPV) 8.5 7.4-10.4 [facility] CenterTjwrbiiGWEIRSUFOU2110-71-21 06:48:00 Test Item Value Reference Range Interpretation Comments PT (test code = PT) 12.9 s 12.0-14.7 [facility] CenterTbgpwfnOLVMDXYOOX6905-40-34 06:48:00 Test Item Value Reference Range Interpretation Comments INR (test code = INR) 0.98 1 0.85-1.17 [facility] CenterKpdaboxUGJMBFDARX4707-20-30 06:48:00 Test Item Value Reference Range Interpretation Comments PTT (test code = PTT) 31.4 s 22.9-35.8 [facility] GBWXGMS6387-28-03 06:48:00 Test Item Value Reference Range Interpretation Comments Antibody Scrn (test Negative (10/06/21 1:48 code = Antibody Scrn) AM) [facility] [id number] 06:48:00 Test Item Value Reference Range Interpretation Comments ABO/Rh (test code = ABO/Rh) AB POS [facility] CenterVcribnhXRILRYUOAJ0744-47-21 06:48:00 Test Item Value Reference Range Interpretation Comments Segs (test code = Segs) 70.8 45.0-75.0 [facility] CenterGcgnsuvZWRERKBMLL8540-99-31 06:48:00 Test Item Value Reference Range Interpretation Comments Lymphocytes (test code = Lymphocytes) 20.8 20.0-40.0 [facility] CenterDarfstaDZMSQKGLRT2465-60-58 06:48:00 Test Item Value Reference Range Interpretation Comments Monocytes (test code = Monocytes) 5.8 2.0-12.0 [facility] CenterLtnsmvuMTBYFCWBIJ2822-22-43 06:48:00 Test Item Value Reference Range Interpretation Comments Eosinophils (test code = 2.3 See_Comment [A utomated message] The Eosinophils) system which ge nerated this result tra nsmitted reference range : <=4.0. The reference r boubacar was not used to int erpret this result as normal/abnormal . [facility] CenterRzrydadAEQWVZNDND8688-85-10 06:48:00 Test Item Value Reference Range Interpretation Comments Basophils (test code = 0.3 See_Comment [Aut omated message] The Basophils) system which ge nerated this result tra nsmitted reference range : <=1.0. The reference r boubacar was not used to int erpret this result as normal/abnormal . [facility] CenterRekorirKVQPTTBTYL9406-24-85 06:48:00 Test Item Value Reference Range Interpretation Comments Neutrophils # (test code = Neutrophils 8.4 1.5-8.1 #) [facility] CenterTmymqhiAKGOVMLKFJ4221-20-51 06:48:00 Test Item Value Reference Range Interpretation Comments Lymphocytes # (test code = Lymphocytes 2.5 1.0-5.5 #) [facility] CenterSrvxjriVWAEJATAPV7584-34-14 06:48:00 Test Item Value Reference Range Interpretation Comments Monocytes # (test code 0.7 See_Comment [Aut omated message] The = Monocytes #) system which generated this result tra nsmitted reference range : <=0.8. The reference r boubacar was not used to int erpret this result as normal/abnormal . [facility] CenterBxxewceEKIIPVCDPR8043-06-36 06:48:00 Test Item Value Reference Range Interpretation Comments Eosinophils # (test code 0.3 See_Comment [A utomated message] The = Eosinophils #) system [employer] generated this result tra nsmitted reference range : <=0.5. The reference r boubacar was not used to int erpret this result as normal/abnormal . [facility] CenterZjwplndYZCRLPPFMJ9339-58-07 06:48:00 Test Item Value Reference Range Interpretation Comments WBC X 10x3 (test code = WBC X 10x3) 11.9 3.7-10.4 [place] 081492-03-25 06:48:00 Test Item Value Reference Range Interpretation Comments RBC X 10x6 (test code = RBC X 10x6) 5.95 4.70-6.10 [place] 081492-03-25 06:48:00 Test Item Value Reference Range Interpretation Comments Hgb (test code = Hgb) 17.9 14.0-18.0 [place] 081492-03-25 06:48:00 Test Item Value Reference Range Interpretation Comments Hct (test code = Hct) 52.0 42.0-54.0 [place] 081492-03-25 06:48:00 Test Item Value Reference Range Interpretation Comments MCV (test code = MCV) 87.5 80.0-94.0 [place] 081492-03-25 06:48:00 Test Item Value Reference Range Interpretation Comments MCH (test code = MCH) 30.2 pg 27.0-31.0 [facility] CenterOosnrunDNFUBPBAPK8946-46-72 06:48:00 Test Item Value Reference Range Interpretation Comments MCHC (test code = MCHC) 34.5 32.0-36.0 [place] 081492-03-25 06:48:00 Test Item Value Reference Range Interpretation Comments RDW (test code = RDW) 15.4 11.5-14.5 [place] 081492-03-25 06:48:00 Test Item Value Reference Range Interpretation Comments Platelet (test code = Platelet) 414 133-450 [place] 081492-03-25 06:48:00 Test Item Value Reference Range Interpretation Comments MPV (test code = MPV) 8.5 7.4-10.4 [place] 081492-03-25 06:48:00 Test Item Value Reference Range Interpretation Comments PT (test code = PT) 12.9 s 12.0-14.7 [facility]hdxeuMARBEBSSQE2609-07-06 06:48:00 Test Item Value Reference Range Interpretation Comments INR (test code = INR) 0.98 1 0.85-1.17 [facility]WvxgbgkYVTSMKAYLZ0713-91-81 06:48:00 Test Item Value Reference Range Interpretation Comments PTT (test code = PTT) 31.4 s 22.9-35.8 [facility] WITH [id number] 00:23:28 Test Item Value Reference Range Interpretation [...] RDW-SD (test code = 47.6 fL 38.5-51.6 58452-2) RDW-CV (test code = 15.1 % 12.1-15.4 788-0) PLT (test code = See_Comment H [Automated 777-3) message] The sy stem which generated this result transmitted reference range : 150 - 328 10*3/ ?L. The reference r boubacar was not used to interpret this result as normal/abnormal . MPV (test code = 10.5 fL 9.8-13.0 31932-2) NRBC/100 WBC (test See_Comment [Automat ed code = [id number]) message] The system which generated this result transmitted reference range : 0.0 - 10.0 /100 WBCs. The refer ence range was not u sed to interpret th is result as normal/abnormal . NRBC x10^3 (test code <0.01 See_Comment [Auto mated = 5540295046) message] The s ystem which generated this result transmitted reference range : 10*3/?L. The reference range was not used to interpret this result as normal/abnormal . GRAN MAT (NEUT) % 66.7 % (test code = 770-8) IMM GRAN % (test code 0.40 % = 8002198080) LYMPH % (test code = 24.4 % 736-9) MONO % (test code = 6.6 % 5905-5) EOS % (test code = 1.5 % 713-8) BASO % (test code = 0.4 % 706-2) GRAN MAT x10^3(ANC) 7.43 10*3/uL 1.99-6.95 H (test code = 7563968848) IMM GRAN x10^3 (test 0.04 10*3/uL 0.00-0.06 code = 7707443566) LYMPH x10^3 (test code 2.72 10*3/uL 1.09-3.23 = 731-0) MONO x10^3 (test code 0.74 10*3/uL 0.36-1.02 = 742-7) EOS x10^3 (test code = 0.17 10*3/uL 0.06-0.53 711-2) BASO x10^3 (test code 0.04 10*3/uL 0.01-0.09 = 704-7) Lab Interpretation Abnormal (test code = 76702-7) [facility]. METABOLIC PANEL ([id number])2021-09-29 00:18:07 Test Item Value Reference Range Interpretation Comments NA (test code = 139 mmol/L 135-145 0675746315) K (test code = 4.8 mmol/L 3.5-5.0 7684301441) CL (test code = 104 mmol/L 98-108 3507901431) CO2 TOTAL (test code = 22 mmol/L 23-31 L 0336968651) AGAP (test code = 2-16 8301970156) BUN (test code = 15 mg/dL 7-23 4154309554) GLUCOSE (test code = 93 mg/dL 70-110 3134457939) CREATININE (test code = 0.67 mg/dL 0.60-1.25 6307241001) TOTAL BILI (test code = 0.7 mg/dL 0.1-1.8 8000741925) CALCIUM (test code = 9.8 mg/dL 8.6-10.6 2105250706) T PROTEIN (test code = 8.9 g/dL 6.3-8.2 H 3420894739) ALBUMIN (test code = 4.9 g/dL 3.5-5.0 9692193729) ALK PHOS (test code = 126 U/L 34-122 H 6498890848) ALTv (test code = 43 U/L 5-50 1742-6) AST(SGOT) (test code = 28 U/L 13-40 4449173188) eGFR (test code = mL/min/1.73m2 8146055249) ARPITA (test code = ARPITA) Association of [...] tests). Lab Interpretation Abnormal (test code = 53867-3) [facility]. METABOLIC PANEL ([id number])2021-08-06 12:48:40 Test Item Value Reference Range Interpretation Comments NA (test code = 137 mmol/L 135-145 7561599637) K (test code = 4.5 mmol/L 3.5-5.0 7682398588) CL (test code = 107 mmol/L 98-108 8197673876) CO2 TOTAL (test code = 24 mmol/L 23-31 9432404649) AGAP (test code = 2-16 6282881447) BUN (test code = 16 mg/dL 7-23 6767076941) GLUCOSE (test code = 116 mg/dL 70-110 H 4165252744) CREATININE (test code = 0.62 mg/dL 0.60-1.25 7390505372) TOTAL BILI (test code = 0.4 mg/dL 0.1-1.7 1169179072) CALCIUM (test code = 8.7 mg/dL 8.6-10.6 8655599400) T PROTEIN (test code = 7.5 g/dL 6.3-8.2 6041417671) ALBUMIN (test code = 3.9 g/dL 3.5-5.0 6575932787) ALK PHOS (test code = 93 U/L 34-122 7585888592) ALTv (test code = 40 U/L 5-50 1742-6) AST(SGOT) (test code = 51 U/L 13-40 H 7894448193) eGFR (test code = mL/min/1.73m2 7480028463) ARPITA (test code = ARPITA) Association of [...] tests). Lab Interpretation Abnormal (test code = 89987-4) [facility] WITH [id number] 12:21:36 Test Item Value Reference Range Interpretation Comments WBC (test code = See_Comment [Automated 7214-2) message] The sy stem which generated this result transmitted reference range : 4.20 - 10.70 10*3/?L. The reference range was not used to interpret this result as normal/abnormal . RBC (test code = See_Comment [Automated 334-8) message] The sy stem which generated this [...] RDW-SD (test code = 50.6 fL 38.5-51.6 57157-9) RDW-CV (test code = 15.3 % 12.1-15.4 788-0) PLT (test code = See_Comment H [Automated 777-3) message] The sy stem which generated this result transmitted reference range : 150 - 328 10*3/ ?L. The reference r boubacar was not used to interpret this result as normal/abnormal . MPV (test code = 10.3 fL 9.8-13.0 97464-9) NRBC/100 WBC (test See_Comment [Automat ed code = 1716940302) message] The system which generated this result transmitted reference range : 0.0 - 10.0 /100 WBCs. The refer ence range was not u sed to interpret th is result as normal/abnormal . NRBC x10^3 (test code <0.01 See_Comment [Auto mated = 3215766267) message] The s ystem which generated this result transmitted reference range : 10*3/?L. The reference range was not used to interpret this result as normal/abnormal . GRAN MAT (NEUT) % 61.5 % (test code = 770-8) IMM GRAN % (test code 0.80 % = 8388005321) LYMPH % (test code = 27.8 % 736-9) MONO % (test code = 6.9 % 5905-5) EOS % (test code = 2.4 % 713-8) BASO % (test code = 0.6 % 706-2) GRAN MAT x10^3(ANC) 6.07 10*3/uL 1.99-6.95 (test code = 5528182974) IMM GRAN x10^3 (test 0.08 10*3/uL 0.00-0.06 H code = 2946282409) LYMPH x10^3 (test code 2.75 10*3/uL 1.09-3.23 = 731-0) MONO x10^3 (test code 0.68 10*3/uL 0.36-1.02 = 742-7) EOS x10^3 (test code = 0.24 10*3/uL 0.06-0.53 711-2) BASO x10^3 (test code 0.06 10*3/uL 0.01-0.09 = 704-7) Lab Interpretation Abnormal (test code = 17487-8) [facility] Metabolic Panel (NA, K, CL, CO2, GLUCOSE, BUN, CREATININE, CA)2021-08-04 12:40:30 Test Item Value Reference Range Interpretation Comments NA (test code = 139 mmol/L 135-145 6480860375) K (test code = 3.9 mmol/L 3.5-5.0 2149505937) CL (test code = 108 mmol/L 98-108 6990402178) CO2 TOTAL (test code = 25 mmol/L 23-31 8639091214) AGAP (test code = 2-16 6870181653) BUN (test code = 14 mg/dL 7-23 0218724009) GLUCOSE (test code = 107 mg/dL 70-110 6239867720) CREATININE (test code = 0.61 mg/dL 0.60-1.25 7657293582) CALCIUM (test code = 8.1 mg/dL 8.6-10.6 L 0148712216) eGFR (test code = mL/min/1.73m2 2686965038) ARPITA (test code = ARPITA) Association of [...] tests). Lab Interpretation Abnormal (test code = 40539-5) [facility] with [id number] 12:23:51 Test Item Value Reference Range Interpretation Comments WBC (test code = See_Comment [Automated 2990-2) message] The sy stem which generated this [...] RDW-SD (test code = 49.3 fL 38.5-51.6 81865-0) RDW-CV (test code = 15.3 % 12.1-15.4 788-0) PLT (test code = See_Comment H [Automated 777-3) message] The sy stem which generated this result transmitted reference range : 150 - 328 10*3/ ?L. The reference r boubacar was not used to interpret this result as normal/abnormal . MPV (test code = 10.2 fL 9.8-13.0 66710-6) NRBC/100 WBC (test See_Comment [Automat ed code = 5862884408) message] The system which generated this result transmitted reference range : 0.0 - 10.0 /100 WBCs. The refer ence range was not u sed to interpret th is result as normal/abnormal . NRBC x10^3 (test code <0.01 See_Comment [Auto mated = 7959590500) message] The s ystem which generated this result transmitted reference range : 10*3/?L. The reference range was not used to interpret this result as normal/abnormal . GRAN MAT (NEUT) % 56.7 % (test code = 770-8) IMM GRAN % (test code 0.60 % = 8748946708) LYMPH % (test code = 31.1 % 736-9) MONO % (test code = 8.7 % 5905-5) EOS % (test code = 2.4 % 713-8) BASO % (test code = 0.5 % 706-2) GRAN MAT x10^3(ANC) 4.83 10*3/uL 1.99-6.95 (test code = 3825867809) IMM GRAN x10^3 (test 0.05 10*3/uL 0.00-0.06 code = 8007816033) LYMPH x10^3 (test code 2.64 10*3/uL 1.09-3.23 = 731-0) MONO x10^3 (test code 0.74 10*3/uL 0.36-1.02 = 742-7) EOS x10^3 (test code = 0.20 10*3/uL 0.06-0.53 711-2) BASO x10^3 (test code 0.04 10*3/uL 0.01-0.09 = 704-7) Lab Interpretation Abnormal (test code = 52011-4) [id number] 06:32:14 Test Item Value Reference Range Interpretation Comments NA (test code = 139 mmol/L 135-145 3103643995) K (test code = 4.5 mmol/L 3.5-5.0 1622058235) CL (test code = 102 mmol/L 98-108 3816297143) CO2 TOTAL (test code = 26 mmol/L 23-31 8517064601) AGAP (test code = 2-16 8141446725) BUN (test code = 16 mg/dL 7-23 4333437610) GLUCOSE (test code = 99 mg/dL 70-110 8853550099) CREATININE (test code = 0.83 mg/dL 0.60-1.25 7646932905) TOTAL BILI (test code = 0.6 mg/dL 0.1-1.8 4993221760) CALCIUM (test code = 9.5 mg/dL 8.6-10.6 2892761461) T PROTEIN (test code = 8.6 g/dL 6.3-8.2 H 4044752822) ALBUMIN (test code = 4.6 g/dL 3.5-5.0 4467635321) ALK PHOS (test code = 121 U/L 34-122 2592706443) ALTv (test code = 58 U/L 5-50 H 1741-) AST(SGOT) (test code = 32 U/L 13-40 7765339193) eGFR (test code = mL/min/1.73m2 7034080302) ARPITA (test code = ARPITA) Association of [...] tests). Lab Interpretation Abnormal (test code = 98689-9) [facility] WITH [id number] 05:48:31 Test Item Value Reference Range Interpretation [...] RDW-SD (test code = 49.1 fL 38.5-51.6 09258-9) RDW-CV (test code = 15.5 % 12.1-15.4 H 788-0) PLT (test code = See_Comment H [Automated 777-3) message] The sy stem which generated this result transmitted reference range : 150 - 328 10*3/ ?L. The reference r boubacar was not used to interpret this result as normal/abnormal . MPV (test code = 10.4 fL 9.8-13.0 93139-9) NRBC/100 WBC (test See_Comment [Automat ed code = 4219500738) message] The system which generated this result transmitted reference range : 0.0 - 10.0 /100 WBCs. The refer ence range was not u sed to interpret th is result as normal/abnormal . NRBC x10^3 (test code <0.01 See_Comment [Auto mated = 2414093039) message] The s ystem which generated this result transmitted reference range : 10*3/?L. The reference range was not used to interpret this result as normal/abnormal . GRAN MAT (NEUT) % 64.8 % (test code = 770-8) IMM GRAN % (test code 0.70 % = 0539014785) LYMPH % (test code = 25.2 % 736-9) MONO % (test code = 6.9 % 5905-5) EOS % (test code = 1.9 % 713-8) BASO % (test code = 0.5 % 706-2) GRAN MAT x10^3(ANC) 7.80 10*3/uL 1.99-6.95 H (test code = 5975218685) IMM GRAN x10^3 (test 0.08 10*3/uL 0.00-0.06 H code = 3502408774) LYMPH x10^3 (test code 3.04 10*3/uL 1.09-3.23 = 731-0) MONO x10^3 (test code 0.83 10*3/uL 0.36-1.02 = 742-7) EOS x10^3 (test code = 0.23 10*3/uL 0.06-0.53 711-2) BASO x10^3 (test code 0.06 10*3/uL 0.01-0.09 = 704-7) Lab Interpretation Abnormal (test code = 73823-9) [facility][id number][facility]21-[facility]-01 02:19:08 Test Item Value Reference Range Interpretation Comments NA (test code = 136 mmol/L 135-145 3697882193) K (test code = 4.4 mmol/L 3.5-5.0 3755018351) CL (test code = 99 mmol/L 98-108 2231075882) CO2 TOTAL (test code = 25 mmol/L 23-31 7559183702) AGAP (test code = 2-16 7975153265) BUN (test code = 19 mg/dL 7-23 0800619204) GLUCOSE (test code = 103 mg/dL 70-110 8213401257) CREATININE (test code = 0.70 mg/dL 0.60-1.25 3860005762) TOTAL BILI (test code = 0.7 mg/dL 0.1-1.3 2461017027) CALCIUM (test code = 9.2 mg/dL 8.6-10.6 4026584703) T PROTEIN (test code = 9.4 g/dL 6.3-8.2 H 6188341110) ALBUMIN (test code = 4.8 g/dL 3.5-5.0 9628323445) ALK PHOS (test code = 146 U/L 34-122 H 4109542215) ALTv (test code = 75 U/L 5-50 H 1742-6) AST(SGOT) (test code = 37 U/L 13-40 9445883985) eGFR (test code = mL/min/1.73m2 1313052508) ARPITA (test code = ARPITA) Association of [...] tests). Lab Interpretation Abnormal (test code = 29869-4) [facility]18[facility]27 Test Item Value Reference Range Interpretation Comments LIPASE (test code = 6610475203) 86 U/L 0-220 Lab Interpretation (test code = Normal 77935-8) [facility] [id number] 01:55:49 Test Item Value Reference Range Interpretation [...] RDW-SD (test code = 48.7 fL 38.5-51.6 00362-0) RDW-CV (test code = 15.4 % 12.1-15.4 788-0) PLT (test code = See_Comment H [Automated 777-3) message] The sy stem which generated this result transmitted reference range : 150 - 328 10*3/ ?L. The reference r boubacar was not used to interpret this result as normal/abnormal . MPV (test code = 9.9 fL 9.8-13.0 00106-3) NRBC/100 WBC (test See_Comment [Automat ed code = 9481560176) message] The system which generated this result transmitted reference range : 0.0 - 10.0 /100 WBCs. The refer ence range was not u sed to interpret th is result as normal/abnormal . NRBC x10^3 (test code <0.01 See_Comment [Auto mated = 0251587680) message] The s ysteWebyog which generated this result transmitted reference range : 10*3/?L. The reference range was not used to interpret this result as normal/abnormal . GRAN MAT (NEUT) % 69.8 % (test code = 770-8) IMM GRAN % (test code 0.50 % = 4171275504) LYMPH % (test code = 20.5 % 736-9) MONO % (test code = 6.8 % 5905-5) EOS % (test code = 1.9 % 713-8) BASO % (test code = 0.5 % 706-2) GRAN MAT x10^3(ANC) 7.72 10*3/uL 1.99-6.95 H (test code = 8012842012) IMM GRAN x10^3 (test 0.05 10*3/uL 0.00-0.06 code = 0839147993) LYMPH x10^3 (test code 2.26 10*3/uL 1.09-3.23 = 731-0) MONO x10^3 (test code 0.75 10*3/uL 0.36-1.02 = 742-7) EOS x10^3 (test code = 0.21 10*3/uL 0.06-0.53 711-2) BASO x10^3 (test code 0.06 10*3/uL 0.01-0.09 = 704-7) Lab Interpretation Abnormal (test code = 34243-9) [id number] 23:33:52 Test Item Value Reference Interpretation Comments Range D-DIMER (test code = See_Comment [Autom ated 2443574797) message] The system which generated this result [...] diagnosis. Lab Interpretation Normal (test code = 60083-0) [facility]. METABOLIC PANEL ([id number])2021-07-29 22:42:48 Test Item Value Reference Range Interpretation Comments NA (test code = 135 mmol/L 135-145 9129427443) K (test code = 4.6 mmol/L 3.5-5.0 8417569709) CL (test code = 102 mmol/L 98-108 3375646578) CO2 TOTAL (test code = 24 mmol/L 23-31 7691616614) AGAP (test code = 2-16 4345858423) BUN (test code = 17 mg/dL 7-23 3171714874) GLUCOSE (test code = 107 mg/dL 70-110 5183652813) CREATININE (test code = 0.60 mg/dL 0.60-1.25 4006800065) TOTAL BILI (test code = 1.0 mg/dL 0.1-1.0 6896956346) CALCIUM (test code = 9.4 mg/dL 8.6-10.6 1774936180) T PROTEIN (test code = 8.6 g/dL 6.3-8.2 H 9846806576) ALBUMIN (test code = 4.6 g/dL 3.5-5.0 3624822182) ALK PHOS (test code = 159 U/L 34-122 H 0645080188) ALTv (test code = 77 U/L 5-50 H 1742-6) AST(SGOT) (test code = 38 U/L 13-40 4815899567) eGFR (test code = mL/min/1.73m2 5316557657) ARPITA (test code = ARPITA) Association of [...] tests). Lab Interpretation Abnormal (test code = 74272-3) [facility] WITH [id number] 22:30:27 Test Item Value Reference Range Interpretation Comments WBC (test code = See_Comment H [Automated 8290-2) message] The system which generated this result transmit lester reference range : 4.20 - 10.70 10*3/?L. The reference range was not used to interpret this result as normal/abnormal . RBC (test code = See_Comment H [Automated 749-8) message] The system which generated this result [...] RDW-SD (test code = 48.0 fL 38.5-51.6 09905-5) RDW-CV (test code = 15.1 % 12.1-15.4 788-0) PLT (test code = See_Comment H [Automated 777-3) message] The system which generated this result transmit lester reference range : 150 - 328 10*3/ ?L. The reference range was not u sed to interpret th is result as normal/abnormal . MPV (test code = 10.3 fL 9.8-13.0 89194-0) NRBC/100 WBC (test See_Comment [Automat ed code = 5475350187) message] The system which generated this result transmit lester reference range : 0.0 - 10.0 /100 WBCs. The reference range was not used to interpret this result as normal/abnormal . NRBC x10^3 (test code <0.01 See_Comment [Auto mated = 4117100029) message] The system which generated this result transmit lester reference range : 10*3/?L. The reference range was not used to interpret this result as normal/abnormal . GRAN MAT (NEUT) % 79.9 % (test code = 770-8) IMM GRAN % (test code 0.50 % = 3106896462) LYMPH % (test code = 11.8 % 736-9) MONO % (test code = 6.6 % 5905-5) EOS % (test code = 0.9 % 713-8) BASO % (test code = 0.3 % 706-2) GRAN MAT x10^3(ANC) 10.70 10*3/uL 1.99-6.95 H (test code = 2540035702) IMM GRAN x10^3 (test 0.07 10*3/uL 0.00-0.06 H code = 7577883801) LYMPH x10^3 (test code 1.58 10*3/uL 1.09-3.23 = 731-0) MONO x10^3 (test code 0.89 10*3/uL 0.36-1.02 = 742-7) EOS x10^3 (test code = 0.12 10*3/uL 0.06-0.53 711-2) BASO x10^3 (test code 0.04 10*3/uL 0.01-0.09 = 704-7) Lab Interpretation Abnormal (test code = 86194-7) [facility]. METABOLIC PANEL ([id number])2021-06-07 23:02:15 Test Item Value Reference Range Interpretation Comments NA (test code = 137 mmol/L 135-145 3947855422) K (test code = 4.5 mmol/L 3.5-5.0 3134807688) CL (test code = 109 mmol/L 98-108 H 0013126705) CO2 TOTAL (test code = 22 mmol/L 23-31 L 8230651798) AGAP (test code = 2-16 6555877121) BUN (test code = 7 mg/dL 7-23 7866323689) GLUCOSE (test code = 87 mg/dL 70-110 7077779282) CREATININE (test code = 0.61 mg/dL 0.60-1.25 0776072280) TOTAL BILI (test code = 0.5 mg/dL 0.1-1.8 0478473367) CALCIUM (test code = 9.0 mg/dL 8.6-10.6 4194835293) T PROTEIN (test code = 6.9 g/dL 6.3-8.2 9599987897) ALBUMIN (test code = 3.5 g/dL 3.5-5.0 0723466275) ALK PHOS (test code = 112 U/L 34-122 1147603066) ALTv (test code = 35 U/L 5-50 1742-6) AST(SGOT) (test code = 21 U/L 13-40 8411598094) eGFR (test code = mL/min/1.73m2 0041636409) ARPITA (test code = ARPITA) Association of [...] tests). Lab Interpretation Abnormal (test code = 15263-0) [facility] WITH [id number] 22:51:57 Test Item Value Reference Range Interpretation Comments WBC (test code = See_Comment H [Automated 4231-2) message] The sy stem which generated this result transmitted reference range : 4.20 - 10.70 10*3/?L. The reference range was not used to interpret this result as normal/abnormal . RBC (test code = See_Comment [Automated 581-8) message] The sy stem which generated this [...] RDW-SD (test code = 42.4 fL 38.5-51.6 48283-4) RDW-CV (test code = 13.6 % 12.1-15.4 788-0) PLT (test code = See_Comment H [Automated 777-3) message] The sy stem which generated this result transmitted reference range : 150 - 328 10*3/ ?L. The reference r boubacar was not used to interpret this result as normal/abnormal . MPV (test code = 9.4 fL 9.8-13.0 L 41143-4) NRBC/100 WBC (test See_Comment [Automat ed code = 1614716827) message] The system which generated this result transmitted reference range : 0.0 - 10.0 /100 WBCs. The refer ence range was not u sed to interpret th is result as normal/abnormal . NRBC x10^3 (test code <0.01 See_Comment [Auto mated = 3411337036) message] The s ystem which generated this result transmitted reference range : 10*3/?L. The reference range was not used to interpret this result as normal/abnormal . GRAN MAT (NEUT) % 76.4 % (test code = 770-8) IMM GRAN % (test code 0.40 % = 3916031330) LYMPH % (test code = 16.3 % 736-9) MONO % (test code = 5.6 % 5905-5) EOS % (test code = 1.0 % 713-8) BASO % (test code = 0.3 % 706-2) GRAN MAT x10^3(ANC) 8.81 10*3/uL 1.99-6.95 H (test code = 2298309493) IMM GRAN x10^3 (test 0.05 10*3/uL 0.00-0.06 code = 5153462258) LYMPH x10^3 (test code 1.88 10*3/uL 1.09-3.23 = 731-0) MONO x10^3 (test code 0.64 10*3/uL 0.36-1.02 = 742-7) EOS x10^3 (test code = 0.12 10*3/uL 0.06-0.53 711-2) BASO x10^3 (test code 0.03 10*3/uL 0.01-0.09 = 704-7) Lab Interpretation Abnormal (test code = 21007-1) [facility]ID [facility]2020-11-21 01:01:33 Test Item Value Reference Range Interpretation Comments SARS-CoV-2 Rapid ID NOW Not Detected Not Detected (test code = 91227-5) ARPITA (test code = ARPITA) ID NOW COVID-19 Assay is an isothermal nucleic acid amplification test intended for the qualitative detection of nucleic acid from SARS-CoV-2 viral RNA in nasopharyngeal (ROTARY DRIER) specimens. It is used under Emergency Use [...] indicated. Lab Interpretation Normal (test code = 06304-2) [facility] ([id number])2020-11-21 01:00:33 Test Item Value Reference Range Interpretation Comments NA (test code = 140 mmol/L 135-145 4557204695) K (test code = 4.4 mmol/L 3.5-5.0 2704562263) CL (test code = 103 mmol/L 98-108 9409186332) CO2 TOTAL (test code = 28 mmol/L 23-31 5574538288) AGAP (test code = 2-16 8384159397) BUN (test code = 15 mg/dL 7-23 7298466299) GLUCOSE (test code = 85 mg/dL 70-110 1167916815) CREATININE (test code = 0.60 mg/dL 0.60-1.25 4244023174) TOTAL BILI (test code = 1.1 mg/dL 0.1-1.4 8901105456) CALCIUM (test code = 9.0 mg/dL 8.6-10.6 2394777524) T PROTEIN (test code = 7.8 g/dL 6.3-8.2 9581541925) ALBUMIN (test code = 4.0 g/dL 3.5-5.0 4934060779) ALK PHOS (test code = 166 U/L 34-122 H 8711491874) ALTv (test code = 42 U/L 5-50 1742-6) AST(SGOT) (test code = 32 U/L 13-40 1230078655) eGFR (test code = mL/min/1.73m2 4874262047) ARPITA (test code = ARPITA) Association of [...] tests). Lab Interpretation Abnormal (test code = 86099-9) [facility] 01:00:13 Test Item Value Reference Range Interpretation Comments LIPASE (test code = 4932479759) 57 U/L 0-220 Lab Interpretation (test code = Normal 34726-6) [facility] 00:51:55 Test Item Value Reference Range Interpretation Comments APPEARANCE (test code = Turbid Clear A 6160307449) COLOR (test code = Yellow Yellow 5160663062) PH (test code = 4.8-8.0 9604536622) SP GRAVITY (test code = 1.003-1.030 2628757379) GLU U QUAL (test code = Normal Normal 9617289360) BLOOD (test code = 1+ Negative A 9496640798) KETONES (test code = 20 mg/dL Negative A 2052740680) PROTEIN (test code = 100 mg/dL Negative A 2887-8) UROBILIN (test code = 2.0 mg/dL Normal A 3752279531) BILIRUBIN (test code = Negative Negative 4582648001) NITRITE (test code = Positive Negative A 5741490831) LEUK CHAD (test code = 250/uL Negative A 2883734769) RBC/HPF (test code = See_Comment H [Autom ated message] 6814187877) The system [employer] generated this result transmit lester reference range : 0 - 3 HPF. The refe rence range was not u sed to interpret th is result as normal/abnormal . WBC/HPF (test code = >182 See_Comment H [Autom ated message] 1463416737) The system [employer] generated this result transmit lester reference range : 0 - 5 HPF. The refe rence range was not u sed to interpret th is result as normal/abnormal . BACTERIA (test code = Many Negative A 1247492541) MUCOUS (test code = Moderate Negative LPF A 0520742810) WBC CLUMPS (test code = See_Comment H [Au tomated message] 3304526660) The system [employer] generated this result transmit lester reference range : <=1 HPF. The refere nce range was not u sed to interpret th is result as normal/abnormal . Lab Interpretation (test Abnormal code = 09561-7) [facility] [id number] 00:46:14 Test Item Value Reference Range Interpretation [...] RDW-SD (test code = 47.6 fL 38.5-51.6 56790-2) RDW-CV (test code = 15.2 % 12.1-15.4 788-0) PLT (test code = See_Comment H [Automated 777-3) message] The sy stem which generated this result transmitted reference range : 150 - 328 10*3/ ?L. The reference r boubacar was not used to interpret this result as normal/abnormal . MPV (test code = 9.4 fL 9.8-13.0 L 55526-9) NRBC/100 WBC (test See_Comment [Automat ed code = 2966192812) message] The system which generated this result transmitted reference range : 0.0 - 10.0 /100 WBCs. The refer ence range was not u sed to interpret th is result as normal/abnormal . NRBC x10^3 (test code <0.01 See_Comment [Auto mated = 1597026476) message] The s ystem which generated this result transmitted reference range : 10*3/?L. The reference range was not used to interpret this result as normal/abnormal . GRAN MAT (NEUT) % 61.3 % (test code = 770-8) IMM GRAN % (test code 0.70 % = 8691830751) LYMPH % (test code = 26.4 % 736-9) MONO % (test code = 9.9 % 5905-5) EOS % (test code = 1.3 % 713-8) BASO % (test code = 0.4 % 706-2) GRAN MAT x10^3(ANC) 6.39 10*3/uL 1.99-6.95 (test code = 4588874459) IMM GRAN x10^3 (test 0.07 10*3/uL 0.00-0.06 H code = 5380919288) LYMPH x10^3 (test code 2.75 10*3/uL 1.09-3.23 = 731-0) MONO x10^3 (test code 1.03 10*3/uL 0.36-1.02 H = 742-7) EOS x10^3 (test code = 0.14 10*3/uL 0.06-0.53 711-2) BASO x10^3 (test code 0.04 10*3/uL 0.01-0.09 = 704-7) Lab Interpretation Abnormal (test code = 41134-5) [facility] [id number] 13:03:00 Test Item Value Reference Range Interpretation Comments POC-GLUCOSE METER 140 mg/dL 70-110 H : TESTED A T [facility] 6720 (BEAKER) (test code = [facility], 153) 016[address]: Supervisor Front/Techni rose ID = [id number] for AARON COTTRELL POCT-GLUCOSE [id number] 09:15:00 Test Item Value Reference Range Interpretation Comments POC-GLUCOSE METER 142 mg/dL 70-110 H : TESTED A T [facility] 67[address] (BEAKER) (test code = [facility], 153) 04405: Supervisor Front/Techni rose ID = [id number] for AARON COTTRELL POCT-GLUCOSE [id number] 20:56:00 Test Item Value Reference Range Interpretation Comments POC-GLUCOSE METER 134 mg/dL 70-110 H : TESTED A T [facility] 67[address] (BEAKER) (test code = [facility], 153) 82771: Supervisor Front/Techni rose ID = [id number] for MG LANZA POCT-GLUCOSE [id number] 16:46:00 Test Item Value Reference Range Interpretation Comments POC-GLUCOSE METER 91 mg/dL 70-110 : TESTED A T [facility] 67[address] (BEAKER) (test code = [facility], 1538) 54117: Supervisor Front/Techni rose ID = [id number] for AARON CABRAL POCT-GLUCOSE [id number] 12:19:00 Test Item Value Reference Range Interpretation Comments POC-GLUCOSE METER 237 mg/dL 70-110 H : TESTED A T [facility] 67[address] (BEAKER) (test code = [facility], 1538) 90133: Supervisor Front/Techni rose ID = [id number] for AARON COTTRELL MR, EXTREMITY, LOWER, WITHOUT CONTRAST, [id number] 09:12:00FINAL REPORT MRI of the right and [...] Garza Verified Date/Time: 07/29/2019 09:12:01 Reading Location: [facility] C0X Ortho Consult Reading Room MR, EXTREMITY, LOWER, WITHOUT CONTRAST, [id number] 09:12:00FINAL REPORT MRI of the right and [...] evidence of osteomyelitis. Severe muscle atrophy. Signed:Carly Garzaeport Verified Date/Time: 07/29/2019 09:12:01 Reading Location: [facility] C013X Ortho Consult Reading Room POCT-GLUCOSE [id number] 08:47:00 Test Item Value Reference Range Interpretation Comments POC-GLUCOSE METER 264 mg/dL 70-110 H : TESTED A T [facility] 67[address] ([facility]) (test code = [facility], 153) 54662: Supervisor Front/Techni rose ID = [id number] for AARON COTTRELL ISLET CELL AB [id number] 07:43:00 Test Item Value Reference Range Interpretation Comments ISLET CELL AB Refer to individual AUTOVERIFICATION (test Islet Cell Ab code = 2556) and/or Islet Cell Ab Titer results. POCT-GLUCOSE [id number] 21:27:00 Test Item Value Reference Range Interpretation Comments POC-GLUCOSE METER 130 mg/dL 70-110 H : [facility] ([facility]) (test code = [facility], 153) [address]: Supervisor Front/Techni rose ID = [id number] for FERNIE APARICIO BLOOD [id number] 13:00:00 Test Item Value Reference Range Interpretation Comments CULTURE (BEAKER) (test No growth in 5 days code = 1095) BLOOD [id number] 13:00:00 Test Item Value Reference Range Interpretation Comments CULTURE (BEAKER) (test No growth in 5 days code = 1095) POCT-GLUCOSE [id number] 12:57:00 Test Item Value Reference Range Interpretation Comments POC-GLUCOSE METER 138 mg/dL 70-110 H : [facility] ([facility]) (test code = [facility], 153) [address]: Supervisor Front/Techni rose ID = [id number] for [place] LLIS, JUAN ANTONIO POCT-GLUCOSE [id number] 08:43:00 Test Item Value Reference Range Interpretation Comments POC-GLUCOSE METER 226 mg/dL 70-110 H : [facility] ([facility]) (test code = [facility], 153) [address]: Supervisor Front/Techni rose ID = [id number] for [place] LLIS, JUAN ANTONIO POCT-GLUCOSE [id number] 21:11:00 Test Item Value Reference Range Interpretation Comments POC-GLUCOSE METER 254 mg/dL 70-110 H : Notified RN/MD: ([facility]) (test code = TESTED AT [place] [address] 153) [facility], [id number]: Supervisor Front/Techni rose ID = [id number] for HU MPHREY, FERNIE POCT-GLUCOSE [id number] 21:02:00 Test Item Value Reference Range Interpretation Comments POC-GLUCOSE METER 177 mg/dL 70-110 H : TESTED A T [facility] 6720 (BEAKER) (test code = [facility] Petit [facility], 1538) [address]: Supervisor Front/Techni rose ID = [id number] for [place] LLIS, JUAN ANTONIO POCT-GLUCOSE [id number] 12:31:00 Test Item Value Reference Range Interpretation Comments POC-GLUCOSE METER 215 mg/dL 70-110 H : TESTED A T [facility] 6720 (BEAKER) (test code = LI[facility] Petit [facility], 1538) [address]: Supervisor Front/Techni rose ID = [id number] for [place] LLIS, JUAN ANTONIO WOUND CULTURE + GRAM [id number] 10:10:00 Test Item Value Reference Interpretation Comments [...] gram negative (BEAKER) (test code = rods 198985) GRAM STAIN RESULT 2+ gram positive (BEAKER) (test code = rods 070232) GRAM STAIN RESULT <1+ gram negative (BEAKER) (test code = coccobacilli 059089) GRAM STAIN RESULT 2+ gram positive (BEAKER) (test code = cocci in pairs 882132) POCT-GLUCOSE [id number] 08:52:00 Test Item Value Reference Range Interpretation Comments POC-GLUCOSE METER 209 mg/dL 70-110 H : TESTED A T [facility] 6720 (3seventyAKER) (test code = [facility], 153) [address]: Supervisor Front/Techni rose ID = [id number] for [place] LLSPARKLE, JUAN ANTONIO POCT-GLUCOSE [id number] 21:26:00 Test Item Value Reference Range Interpretation Comments POC-GLUCOSE METER 255 mg/dL 70-110 H : TESTED A T [facility] 6720 (BEAKER) (test code = [facility], 153) [address]115: Supervisor Front/Techni rose ID = [id number] for CR MICK, TIA POCT-GLUCOSE [id number] 17:34:00 Test Item Value Reference Range Interpretation Comments POC-GLUCOSE METER 227 mg/dL 70-110 H : TESTED A T [facility] 6720 (BEAKER) (test code = [facility], [facility]) [address]: Supervisor Front/Techni rose ID = [id number] for CHAVEZ CIARA, LETI POCT-GLUCOSE [id number] 11:28:00 Test Item Value Reference Range Interpretation Comments POC-GLUCOSE METER 282 mg/dL 70-110 H : TESTED A T [facility] 6720 (BEAKER) (test code = [facility], [facility]) 98139: Supervisor Front/Techni rose ID = [id number] for CHAVEZ CIARA, LETI POCT-GLUCOSE [id number] 08:19:00 Test Item Value Reference Range Interpretation Comments POC-GLUCOSE METER 329 mg/dL 70-110 H : TESTED A T [facility] 6720 (BEAKER) (test code = [facility], [facility]) [address]: Supervisor Front/Techni rose ID = [id number] for AARON COTTRELL POCT-GLUCOSE [id number] 21:32:00 Test Item Value Reference Range Interpretation Comments POC-GLUCOSE METER 275 mg/dL 70-110 H : TESTED A T [facility] 6720 (BEAKER) (test code = [facility], [facility]) [address]59[address]: Supervisor Front/Techni rose ID = [id number] for MG LANZA POCT-GLUCOSE [id number] 17:47:00 Test Item Value Reference Range Interpretation Comments POC-GLUCOSE METER 304 mg/dL 70-110 H : TESTED A T [facility] 6720 (BEAKER) (test code = [facility], [facility]) 48910: Supervisor Front/Techni rose ID = [id number] for MA JOHNNIE, ERIN URINE [id number] 15:21:00 Test Item Value Reference Range Interpretation Comments [facility] A >100,000 co l/mL (test code = 1095) Beta-hemo lytic streptococcus g roup B, by serologic al grouping [facility] PROTEUS A 80-89,000 c ol/mL [...] Tobramycin (test code R = 25) POCT-GLUCOSE [id number] 12:16:00 Test Item Value Reference Range Interpretation Comments POC-GLUCOSE METER 337 mg/dL 70-110 H : TESTED A T [facility] 6720 (BEAKER) (test code = [facility], 1538) [address]1979: Supervisor Front/Techni rose ID = [id number] for ERIN ARIZMENDI BASIC METABOLIC [id number] 10:39:00 Test Item Value Reference Range Interpretation [...] S NOT APPLICABLE FOR DIALYSIS PATIEN TS. Supervisor Front ID - JANET FPOCT-GLUCOSE [id number] 08:29:00 Test Item Value Reference Range Interpretation Comments POC-GLUCOSE METER 395 mg/dL 70-110 H : TESTED A T [facility] 6720 (BEAKER) (test code = [facility] [place], 1538) [address]: Supervisor Front/Techni rose ID = [id number] for ERIN ARIZMENDI CBC W/PLT COUNT & AUTO [id number] 06:40:00 Test Item Value Reference Range Interpretation [...] PERCENT (BEAKER) (test code = 2801) POCT-GLUCOSE [id number] 19:55:00 Test Item Value Reference Range Interpretation Comments POC-GLUCOSE METER 369 mg/dL 70-110 H : TESTED A T [facility] 6720 (BEAKER) (test code = [facility], 1538) 12553: Supervisor Front/Techni rose ID = [id number] for MG LANZA POCT-GLUCOSE [id number] 16:45:00 Test Item Value Reference Range Interpretation Comments POC-GLUCOSE METER 272 mg/dL 70-110 H : TESTED A T [facility] 6720 (BEAKER) (test code = [facility], 1538) 72251: Supervisor Front/Techni rose ID = [id number] for FRIEDA PALOMINO POCT-GLUCOSE [id number] 11:40:00 Test Item Value Reference Range Interpretation Comments POC-GLUCOSE METER 277 mg/dL 70-110 H : TESTED A T [facility] 6720 (BEAKER) (test code = [facility], 1538) 18281: Supervisor Front/Techni rose ID = [id number] for FRIEDA PALOMINO BASIC METABOLIC [id number] 10:22:00 Test Item Value Reference Range Interpretation [...] S NOT APPLICABLE FOR DIALYSIS PATIEN TS. Supervisor Front ID - NTPLIPID [id number] 10:17:00 Test Item Value Reference Range Interpretation [...] Borderline 130-159 High 160-189 Very High >=190 Supervisor Front ID - NTPPOCT-GLUCOSE METER 2019-07-24 08:28:00 Test Item Value Reference Range Interpretation Comments POC-GLUCOSE METER 388 mg/dL 70-110 H : TESTED A T [facility] 6720 (BEAKER) (test code = [facility] [place], 1538) [address]: Supervisor Front/Techni rose ID = [id number] for AARON COTTRELL HEMOGLOBIN [id number] 07:54:00 Test Item Value Reference Range Interpretation Comments HEMOGLOBIN A1C (BEAKER) (test code = 10.4 % 4.3-6.1 H 368) CBC W/PLT COUNT & AUTO [id number] 05:56:00 Test Item Value Reference Range Interpretation [...] PERCENT (BEAKER) (test code = 2801) POCT-GLUCOSE [id number] 23:47:00 Test Item Value Reference Range Interpretation Comments POC-GLUCOSE METER 359 mg/dL 70-110 H : Notified RN/MD: (FELICIANO) (test code = TESTED AT [facility] 6720 1538) [facility], [address]: Supervisor Front/Techni rose ID = [id number] for MICHELINE DOTY POCT-GLUCOSE [id number] 21:13:00 Test Item Value Reference Range Interpretation Comments POC-GLUCOSE METER 315 mg/dL 70-110 H : TESTED A T [facility] 6720 (BEAKER) (test code = [facility], 1538) 74403: Supervisor Front/Techni rose ID = [id number] for Sm prince, Ana POCT-GLUCOSE [id number] 21:13:00 Test Item Value Reference Range Interpretation Comments POC-GLUCOSE METER 331 mg/dL 70-110 H : TESTED A T [facility] 6720 (BEAKER) (test code = [facility], 1538) 24799: Supervisor Front/Techni rose ID = [id number] for RO DGDOMENIC, LINDSAYECA POCT-GLUCOSE [id number] 10:30:00 Test Item Value Reference Range Interpretation Comments POC-GLUCOSE METER 341 mg/dL 70-110 H : TESTED A T [facility] 6720 (BEAKER) (test code = [facility], 1538) 67281: Supervisor Front/Techni rose ID = [id number] for Sm ith, Ana CBC W/PLT COUNT & AUTO [id number] 08:48:00 Test Item Value Reference Range Interpretation [...] (BEAKER) (test code = Present 1371) HEMOGLOBIN [id number] 06:39:00 Test Item Value Reference Range Interpretation Comments HEMOGLOBIN A1C (BEAKER) (test code = 10.5 % 4.3-6.1 H 368) LIPID [id number] 04:57:00 Test Item Value Reference Range Interpretation [...] Optimal <100 Near Optimal 100-129 Borderline 130-159 Zenr094-007 Very High >=190 Specimen moderately lipemicBASIC METABOLIC [id number] 04:56:00 Test Item Value Reference Range Interpretation [...] NOT APPLICABLE FOR DIALYSIS PATIEN TS. POCT-GLUCOSE [id number] 21:53:00 Test Item Value Reference Range Interpretation Comments POC-GLUCOSE METER > mg/dL 70-110 HH : Notified RN/MD: TESTED (BEAKER) (test code = AT [facility] [address] [address]39) [facility], 770 30: Supervisor Front/Techni rose ID = [id number] for DESIRAE MENDOZA U/S, ABDOMINAL, [id number] 19:54:00Reason for exam:->Evaluation of EAR MUFF ASSEMBLER shunt and for possible cyst or pseudocyst Should this be performed at the bedside?->YesFINAL REPORT Limited abdominal ultrasound. CLINICAL HISTORY: Evaluation of EAR MUFF ASSEMBLER shunt for possible cyst or pseudocyst. COMPARISON STUDY: None available. FINDINGS: Sonographic assessment of the abdomen was performed assessing for fluid in the region of the patient's shunts. No fluid collections are seen. However, the study is limited by the patient's body habitus. CT scan would be more sensitive. Signed: Solo Miles MDReport Verified Date/Time: 07/22/2019 19:54:10 Reading Location: [address] Consult Reading Room POCT-GLUCOSE [id number] 19:34:00 Test Item Value Reference Range Interpretation Comments POC-GLUCOSE METER 474 mg/dL 70-110 HH : Notified RN/MD: (BEAKER) (test code = TESTED AT [facility] 6720 1538) [facility], [address]: Supervisor Front/Techni rose ID = [id number] for [place] MARILYNN EPSTEIN URINALYSIS W/ REFLEX URINE [id number] 17:48:00 Test Item Value Reference Range Interpretation [...] = 2795) CBC W/PLT COUNT & AUTO [id number] 17:38:00 Test Item Value Reference Range Interpretation [...] 3438) Received comment: User comments: Slide comments:POCT-GLUCOSE [id number] 16:27:00 Test Item Value Reference Range Interpretation Comments POC-GLUCOSE METER 424 mg/dL 70-110 HH : Notified RN/MD: (FELICIANO) (test code = TESTED AT [facility] 4412 1460) [facility], [address]: Supervisor Front/Techni rose ID = [id number] for [place] ROSMERYKiera MARILYNN CT, BRAIN, WITHOUT [id number] 15:31:00FINAL REPORT CT, BRAIN, WITHOUT CONTRAST CLINICAL [...] Verified Date/Time: 07/22/2019 15:31:08 Reading Location: [address] Neuro Reading Room RAD, SHUNT [id number] 15:13:00Reason for exam:->concern for VPS malfunctionFINAL REPORT [...] the catheter appear contiguous. Signed: Raina Plasencia Verified Date/Time: 07/22/2019 15:13:54 [facility] POCT-GLUCOSE [id number] 11:38:00 Test Item Value Reference Range Interpretation Comments POC-GLUCOSE METER 394 mg/dL 70-110 H : TESTED A T [facility] 6720 (BEAKER) (test code = [place], 1538) [address]: Supervisor Front/Techni rose ID = [id number] for MARILYNN MAO HEMOGLOBIN [id number] 09:15:00 Test Item Value Reference Range Interpretation Comments HEMOGLOBIN A1C (BEAKER) (test code = 10.4 % 4.3-6.1 H 368) TSH/FREE T4 IF [id number] 07:54:00 Test Item Value Reference Range Interpretation Comments THYROID STIMULATING HORMONE 1.40 uIU/mL 0.35-4.94 (BEAKER) (test code = 772) POCT-GLUCOSE [id number] 07:48:00 Test Item Value Reference Range Interpretation Comments POC-GLUCOSE METER > mg/dL 70-110 HH : Notified RN/MD: TESTED (BEAKER) (test code = AT [facility] [address] [address]) [facility], [facility] 30: Supervisor Front/Techni rose ID = [id number] for MARILYNN SMITH BASIC METABOLIC [id number] 07:44:00 Test Item Value Reference Range Interpretation [...] NOT APPLICABLE FOR DIALYSIS PATIEN TS. LIPID [id number] 07:34:00 Test Item Value Reference Range Interpretation [...] Optimal <100 Near Optimal 100-129 Borderline 130-159 [id number] Very High >=190POCT-GLUCOSE [id number] 00:49:00 Test Item Value Reference Range Interpretation Comments POC-GLUCOSE METER 399 mg/dL 70-110 H : TESTED A T [facility] 6720 (Vortal) (test code = [place], 1538) [address]: Supervisor Front/Techni rose ID = [id number] for CHERYLE LINDA, FOOT, 2 VIEWS, [id number] 22:28:00Reason for exam:->osteomyletitis FINAL REPORT TECHNIQUE: Two [...] recommend MRI with contrast. Signed: Matias Cardenas MDReport Verified Date/Time: 07/21/2019 22:28:25 Reading Location: [facility] C013W Consult Reading Room RAD, FOOT, 2 VIEWS, [id number] 22:28:00Reason for exam:->osteomyletitsFINAL REPORT TECHNIQUE: Two views [...] recommend MRI with contrast. Signed: Matias Cardenas MDReport Verified Date/Time: 07/21/2019 22:28:25 Reading Location: [facility] B1 C013W Consult Reading Room Electronically signed by: MATIAS CARDENAS DO on07/21/2019 10:28 PMPOCT-GLUCOSE [id number] 21:04:00 Test Item Value Reference Range Interpretation Comments POC-GLUCOSE METER 430 mg/dL 70-110 HH : Notified RN/MD: (FELICIANO) (test code = TESTED AT [facility] 6720 1538) [facility], [address]: Supervisor Front/Techni rose ID = [id number] for ALBERTO OLIVER ERTAPENEM:SUSC:PT:ISOLATE:ORDQN:[id number] 16:48:00 Test Item Value Reference Range Interpretation Comments Culture: Urine (test >100,000 CFU/mL Proteus code = Culture: mirabilis 10,000 - Urine) 50,000 CFU/mL Skin Marilee [facility] CentralERTAPENEM:SUSC:PT:ISOLATE:ORDQN:[id number] 16:48:00 Test Item Value Reference Range Interpretation Comments Proteus mirabilis (test Proteus mirabilis code = Proteus mirabilis) [facility] AND [id number] 16:48:00 Test Item Value Reference Range Interpretation Comments UA Nitrite (test code Negative (05/22/18 10:48 = UA Nitrite) AM) [facility] AND [id number] 16:48:00 Test Item Value Reference Range Interpretation Comments UA Bili (test code = Negative *NA*(05/22/18 UA Bili) 10:48 AM) [facility] AND [id number] 16:48:00 Test Item Value Reference Range Interpretation Comments UA Ketones (test code Negative *NA*(05/22/18 = UA Ketones) 10:48 AM) [facility] [id number] 16:48:00 Test Item Value Reference Range Interpretation Comments UA Blood (test code = Trace *ABN*(05/22/18 UA Blood) 10:48 AM) [facility] AND [id number] 16:48:00 Test Item Value Reference Range Interpretation Comments UA Urobilinogen (test code = UA 0.2 0.1-1.0 Urobilinogen) [facility] AND [id number] 16:48:00 Test Item Value Reference Range Interpretation Comments UA Leuk Est (test code Large *ABN*(05/22/18 = UA Leuk Est) 10:48 AM) [facility] AND [id number] 16:48:00 Test Item Value Reference Range Interpretation Comments UA Protein (test code Negative (05/22/18 10:48 = UA Protein) AM) [facility] AND [id number] 16:48:00 Test Item Value Reference Range Interpretation Comments UA Glucose (test code Negative (05/22/18 10:48 = UA Glucose) AM) [facility] AND [id number] 16:48:00 Test Item Value Reference Range Interpretation Comments UA pH (test code = UA pH) 7.0 1 5.0-8.0 [facility] AND [id number] 16:48:00 Test Item Value Reference Range Interpretation Comments UA Spec Grav (test code = UA Spec 1.015 1 Grav) [facility] AND [id number] 16:48:00 Test Item Value Reference Range Interpretation Comments UA Color (test code = Yellow *NA*(05/22/18 UA Color) 10:48 AM) [facility] AND [id number] 16:48:00 Test Item Value Reference Range Interpretation Comments UA Turbidity (test code = Clear (05/22/18 10:48 UA Turbidity) AM) [facility] AND [id number] 16:48:00 Test Item Value Reference Range Interpretation Comments UA Mucus (test code = UA Mucus) Few /LPF [facility] AND [id number] 16:48:00 Test Item Value Reference Range Interpretation Comments UA Bacteria (test code = UA Few /HPF Bacteria) [facility] AND [id number] 16:48:00 Test Item Value Reference Range Interpretation Comments UA RBC (test code = 0-2 /HPF See_Comment [Automa lester message] The UA RBC) system which ge nerated this result tra nsmitted reference range : <=2. The reference range was not used to interpr et this result as dany l/abnormal. [facility] AND [id number] 16:48:00 Test Item Value Reference Range Interpretation Comments UA Sq Epi (test code = None Seen (05/22/18 UA Sq Epi) 10:48 AM) [facility] AND [id number] 16:48:00 Test Item Value Reference Range Interpretation Comments UA WBC (test code = UA WBC) 51-100 /HPF [facility]C:PT:ISOLATE:ORDQN:[id number] 16:48:00 Test Item Value Reference Range Interpretation Comments Culture: Urine (test >100,000 CFU/mL Proteus code = Culture: mirabilis 10,000 - Urine) 50,000 CFU/mL Skin [facility]annERTAPENEM:SUSC:PT:ISOLATE:ORDQN:[id number] 16:48:00 Test Item Value Reference Range Interpretation Comments Proteus mirabilis (test Proteus mirabilis code = Proteus mirabilis) [facility] AND [id number] 16:48:00 Test Item Value Reference Range Interpretation Comments UA Nitrite (test code Negative (05/22/18 10:48 = UA Nitrite) AM) [facility] AND [id number] 16:48:00 Test Item Value Reference Range Interpretation Comments UA Bili (test code = Negative *NA*(05/22/18 UA Bili) 10:48 AM) [facility] AND [id number] 16:48:00 Test Item Value Reference Range Interpretation Comments UA Ketones (test code Negative *NA*(05/22/18 = UA Ketones) 10:48 AM) [facility] AND [id number] 16:48:00 Test Item Value Reference Range Interpretation Comments UA Blood (test code = Trace *ABN*(05/22/18 UA Blood) 10:48 AM) [facility] AND [id number] 16:48:00 Test Item Value Reference Range Interpretation Comments UA Urobilinogen (test code = UA 0.2 0.1-1.0 Urobilinogen) [facility] AND [id number] 16:48:00 Test Item Value Reference Range Interpretation Comments UA Leuk Est (test code Large *ABN*(05/22/18 = UA Leuk Est) 10:48 AM) [facility] AND [id number] 16:48:00 Test Item Value Reference Range Interpretation Comments UA Protein (test code Negative (05/22/18 10:48 = UA Protein) AM) [facility] AND [id number] 16:48:00 Test Item Value Reference Range Interpretation Comments UA Glucose (test code Negative (05/22/18 10:48 = UA Glucose) AM) [facility] AND [id number] 16:48:00 Test Item Value Reference Range Interpretation Comments UA pH (test code = UA pH) 7.0 1 5.0-8.0 [facility] AND [id number] 16:48:00 Test Item Value Reference Range Interpretation Comments UA Spec Grav (test code = UA Spec 1.015 1 Grav) [facility] AND [id number] 16:48:00 Test Item Value Reference Range Interpretation Comments UA Color (test code = Yellow *NA*(05/22/18 UA Color) 10:48 AM) [facility] AND [id number] 16:48:00 Test Item Value Reference Range Interpretation Comments UA Turbidity (test code = Clear (05/22/18 10:48 UA Turbidity) AM) [facility] AND [id number] 16:48:00 Test Item Value Reference Range Interpretation Comments UA Mucus (test code = UA Mucus) Few /LPF [facility] AND [id number] 16:48:00 Test Item Value Reference Range Interpretation Comments UA Bacteria (test code = UA Few /HPF Bacteria) [facility] AND [id number] 16:48:00 Test Item Value Reference Range Interpretation Comments UA RBC (test code = 0-2 /HPF See_Comment [Automa lester message] The UA RBC) system which ge nerated this result tra nsmitted reference range : <=2. The reference range was not used to interpr et this result as dany l/abnormal. [facility] AND [id number] 16:48:00 Test Item Value Reference Range Interpretation Comments UA Sq Epi (test code = None Seen (05/22/18 UA Sq Epi) 10:48 AM) [facility] AND [id number] 16:48:00 Test Item Value Reference Range Interpretation Comments UA WBC (test code = UA WBC) 51-100 /HPF [facility] [id number] 11:57:00 Test Item Value Reference Range Interpretation Comments Antibody Scrn (test Negative (05/22/18 5:57 code = Antibody Scrn) AM) [facility] [id number] 11:57:00 Test Item Value Reference Range Interpretation Comments ABO/Rh (test code = ABO/Rh) AB POS [facility] [id number] 11:57:00 Test Item Value Reference Range Interpretation Comments PTT (test code = PTT) 33.4 s 22.9-35.8 [facility] [id number] 11:57:00 Test Item Value Reference Range Interpretation Comments PT (test code = PT) 13.7 s 12.0-14.7 [facility] [id number] 11:57:00 Test Item Value Reference Range Interpretation Comments INR (test code = INR) 1.05 1 0.85-1.17 [facility] [id number] 11:57:00 Test Item Value Reference Range Interpretation Comments Antibody Scrn (test Negative (05/22/18 5:57 code = Antibody Scrn) AM) [facility] [id number] 11:57:00 Test Item Value Reference Range Interpretation Comments ABO/Rh (test code = ABO/Rh) AB POS [facility] [id number] 11:57:00 Test Item Value Reference Range Interpretation Comments PTT (test code = PTT) 33.4 s 22.9-35.8 [facility] [id number] 11:57:00 Test Item Value Reference Range Interpretation Comments PT (test code = PT) 13.7 s 12.0-14.7 [facility] [id number] 11:57:00 Test Item Value Reference Range Interpretation Comments INR (test code = INR) 1.05 1 0.85-1.17 [facility]2018-11-08 10:50:01 Test Item Value Reference Range Interpretation Comments eGFR (test code = eGFR) 133 [facility] [id number] 10:50:01 Test Item Value Reference Range Interpretation Comments Calcium Lvl (test code = Calcium Lvl) 9.4 8.5-10.5 [facility]2018-11-08 10:50:01 Test Item Value Reference Range Interpretation Comments CO2 (test code = CO2) 28 24-32 [facility]2018-11-08 10:50:01 Test Item Value Reference Range Interpretation Comments BUN (test code = BUN) 14 7-22 [facility]2018-11-08 10:50:01 Test Item Value Reference Range Interpretation Comments Glucose Lvl (test code = Glucose Lvl) 89 70-99 [facility]2018-11-08 10:50:01 Test Item Value Reference Range Interpretation Comments Chloride Lvl (test code = Chloride Lvl) 104 95-109 [facility]2018-11-08 10:50:01 Test Item Value Reference Range Interpretation Comments Potassium Lvl (test code = Potassium 4.2 3.5-5.1 Lvl) [facility]2018-11-08 10:50:01 Test Item Value Reference Range Interpretation Comments Sodium Lvl (test code = Sodium Lvl) 137 135-145 [facility]2018-11-08 10:50:01 Test Item Value Reference Range Interpretation Comments Creatinine Lvl (test code = Creatinine 0.85 0.50-1.40 Lvl) [facility]2018-11-08 10:50:01 Test Item Value Reference Range Interpretation Comments AGAP (test code = AGAP) 9.2 10.0-20.0 [facility] C[id number] 10:50:01 Test Item Value Reference Range Interpretation Comments ACT (TEG) Rapid (test code = ACT (TEG) 136 s 86-118 Rapid) [facility] [id number] 10:50:01 Test Item Value Reference Range Interpretation Comments Split Point Rapid (test code = Split 0.6 min Point Rapid) [facility] [id number] 10:50:01 Test Item Value Reference Range Interpretation Comments R-time Rapid (test code = R-time 0.9 min 0.4-0.7 Rapid) [facility] [id number] 10:50:01 Test Item Value Reference Range Interpretation Comments K-time Rapid (test code = K-time 1.4 min 0.6-2.3 Rapid) [facility] [id number] 10:50:01 Test Item Value Reference Range Interpretation Comments Angle Rapid (test code = Angle 71 degrees 64-80 Rapid) [facility] CenterSnkbzibAQRKETYUTC8892-71-73 10:50:01 Test Item Value Reference Range Interpretation Comments G-value Rapid (test code = G-value 12.7 5.0-11.6 Rapid) [facility] CenterFvqzdfmSDOSEGFMHB4731-02-33 10:50:01 Test Item Value Reference Range Interpretation Comments Max Amplitude Rapid (test code = Max 72 mm 52-71 Amplitude Rapid) [facility] CenterHfxmaaqFZKBWVDCCS5670-24-45 10:50:01 Test Item Value Reference Range Interpretation Comments Estimated % Lysis Rapid 0.1 See_Comment [Au tomated message] The (test code = Estimated syste m which generated % Lysis Rapid) this result t ransmitted reference range : <=7.5. The reference r boubacar was not used to int erpret this result as normal/abnormal . [facility] CenterHwrxpvjQWUKMVANJQ9774-77-92 10:50:01 Test Item Value Reference Range Interpretation Comments Platelet (test code = Platelet) 367 133-450 [facility] CenterEjlwvidOCTABTRNSO7573-32-53 10:50:01 Test Item Value Reference Range Interpretation Comments MPV (test code = MPV) 7.8 7.4-10.4 [facility] CenterAxbampfKXWCKJUNSY3342-79-68 10:50:01 Test Item Value Reference Range Interpretation Comments MCH (test code = MCH) 27.4 pg 27.0-31.0 [facility] CenterAntgianIGUWNFVLRX0860-65-79 10:50:01 Test Item Value Reference Range Interpretation Comments MCV (test code = MCV) 80.7 80.0-94.0 [facility] CenterErurwqhASBNWPZETS3020-66-92 10:50:01 Test Item Value Reference Range Interpretation Comments MCHC (test code = MCHC) 34.0 32.0-36.0 [facility] CenterOgnserdHCHTPEYNTS1935-44-06 10:50:01 Test Item Value Reference Range Interpretation Comments RDW (test code = RDW) 18.9 11.5-14.5 [facility] CenterZmivttfYDTWLVDUEI0641-25-72 10:50:01 Test Item Value Reference Range Interpretation Comments Hct (test code = Hct) 43.3 42.0-54.0 [facility] CenterMegnazuCCERDVUCWQ5927-16-74 10:50:01 Test Item Value Reference Range Interpretation Comments WBC (test code = WBC) 9.3 3.7-10.4 [facility] CenterUbwqjabUHCMJPAPAQ7386-84-44 10:50:01 Test Item Value Reference Range Interpretation Comments Hgb (test code = Hgb) 14.7 14.0-18.0 [facility] CenterWrizjipBQFYNNLLCE9498-00-38 10:50:01 Test Item Value Reference Range Interpretation Comments RBC (test code = RBC) 5.36 4.70-6.10 [facility] CenterMmfvpnzLOVKHEHGKA2060-83-79 10:50:01 Test Item Value Reference Range Interpretation Comments Eosinophils # (test code 0.2 See_Comment [A utomated message] The = Eosinophils #) system whic h generated this result tra nsmitted reference range : <=0.5. The reference r boubacar was not used to int erpret this result as normal/abnormal . [facility] CenterAdzyeibCKJQQHRLNR2930-37-40 10:50:01 Test Item Value Reference Range Interpretation Comments Basophils # (test code 0.1 See_Comment [Aut omated message] The = Basophils #) system which generated this result tra nsmitted reference range : <=0.2. The reference r boubacar was not used to int erpret this result as normal/abnormal . [facility] CenterNrkxqszENGCYVWHKM7981-08-30 10:50:01 Test Item Value Reference Range Interpretation Comments Lymphocytes # (test code = Lymphocytes 1.8 1.0-5.5 #) [facility] CenterVaevllzVCPPZTQVWX1185-38-48 10:50:01 Test Item Value Reference Range Interpretation Comments Monocytes # (test code 0.9 See_Comment [Aut omated message] The = Monocytes #) system which generated this result tra nsmitted reference range : <=0.8. The reference r boubacar was not used to int erpret this result as normal/abnormal . [facility] CenterSltocfcIUAHBDDITO0537-04-89 10:50:01 Test Item Value Reference Range Interpretation Comments Neutrophils # (test code = Neutrophils 6.3 1.5-8.1 #) [facility] CenterOtiyylwSXFLMHPCSE9839-94-23 10:50:01 Test Item Value Reference Range Interpretation Comments Eosinophils (test code = 2.0 See_Comment [A utomated message] The Eosinophils) system which ge nerated this result tra nsmitted reference range : <=4.0. The reference r boubacar was not used to int erpret this result as normal/abnormal . [facility] CenterXrnbfzwVZVODDTLGK6265-39-13 10:50:01 Test Item Value Reference Range Interpretation Comments Segs (test code = Segs) 67.4 45.0-75.0 [facility] CenterUgyojvdGAEVLQZBVR5682-94-94 10:50:01 Test Item Value Reference Range Interpretation Comments Lymphocytes (test code = Lymphocytes) 19.9 20.0-40.0 [facility] CenterPvcfkfgTXDVCXNCIZ8161-38-26 10:50:01 Test Item Value Reference Range Interpretation Comments Basophils (test code = 1.0 See_Comment [Aut omated message] The Basophils) system which ge nerated this result tra nsmitted reference range : <=1.0. The reference r boubacar was not used to int erpret this result as normal/abnormal . [facility] CenterFpvkkqtDHHXXJIKVZ6777-62-81 10:50:01 Test Item Value Reference Range Interpretation Comments Monocytes (test code = Monocytes) 9.7 2.0-12.0 [facility]2018-11-08 10:50:01 Test Item Value Reference Range Interpretation Comments eGFR (test code = eGFR) 133 [facility]2018-11-08 10:50:01 Test Item Value Reference Range Interpretation Comments Calcium Lvl (test code = Calcium Lvl) 9.4 8.5-10.5 [facility]2018-11-08 10:50:01 Test Item Value Reference Range Interpretation Comments CO2 (test code = CO2) 28 24-32 [facility]2018-11-08 10:50:01 Test Item Value Reference Range Interpretation Comments BUN (test code = BUN) 14 7-22 [facility]2018-11-08 10:50:01 Test Item Value Reference Range Interpretation Comments Glucose Lvl (test code = Glucose Lvl) 89 70-99 [facility]2018-11-08 10:50:01 Test Item Value Reference Range Interpretation Comments Chloride Lvl (test code = Chloride Lvl) 104 95-109 [facility]2018-11-08 10:50:01 Test Item Value Reference Range Interpretation Comments Potassium Lvl (test code = Potassium 4.2 3.5-5.1 Lvl) [facility]2018-11-08 10:50:01 Test Item Value Reference Range Interpretation Comments Sodium Lvl (test code = Sodium Lvl) 137 135-145 [facility]2018-11-08 10:50:01 Test Item Value Reference Range Interpretation Comments Creatinine Lvl (test code = Creatinine 0.85 0.50-1.40 Lvl) [facility]2018-11-08 10:50:01 Test Item Value Reference Range Interpretation Comments AGAP (test code = AGAP) 9.2 10.0-20.0 [place] [address]-11-08 10:50:01 Test Item Value Reference Range Interpretation Comments ACT (TEG) Rapid (test code = ACT (TEG) 136 s 86-118 Rapid) [place] [address]-11-08 10:50:01 Test Item Value Reference Range Interpretation Comments Split Point Rapid (test code = Split 0.6 min Point Rapid) [facility] CenterUnmqrojHAJWETOMTA8089-55-45 10:50:01 Test Item Value Reference Range Interpretation Comments R-time Rapid (test code = R-time 0.9 min 0.4-0.7 Rapid) [place] [address]-11-08 10:50:01 Test Item Value Reference Range Interpretation Comments K-time Rapid (test code = K-time 1.4 min 0.6-2.3 Rapid) [place] [address]-11-08 10:50:01 Test Item Value Reference Range Interpretation Comments Angle Rapid (test code = Angle 71 degrees 64-80 Rapid) [facility] CenterIzcljylMTMMOSCAYO9762-79-55 10:50:01 Test Item Value Reference Range Interpretation Comments G-value Rapid (test code = G-value 12.7 5.0-11.6 Rapid) [facility] CenterHcgagkxUETXGTDDUF8289-30-53 10:50:01 Test Item Value Reference Range Interpretation Comments Max Amplitude Rapid (test code = Max 72 mm 52-71 Amplitude Rapid) [place] 744708-11-08 10:50:01 Test Item Value Reference Range Interpretation Comments Estimated % Lysis Rapid 0.1 See_Comment [Au tomated message] The (test code = Estimated syste m which generated % Lysis Rapid) this result t ransmitted reference range : <=7.5. The reference r boubacar was not used to int erpret this result as normal/abnormal . [facility] CenterRmmqotdTJYOUYOBZN4519-16-64 10:50:01 Test Item Value Reference Range Interpretation Comments Platelet (test code = Platelet) 367 133-450 [facility] CenterStiiusfBGJCSTHXNR8833-30-12 10:50:01 Test Item Value Reference Range Interpretation Comments MPV (test code = MPV) 7.8 7.4-10.4 [facility] CenterSixoahfGKTFRZFEJR1479-54-05 10:50:01 Test Item Value Reference Range Interpretation Comments MCH (test code = MCH) 27.4 pg 27.0-31.0 [facility] CenterJwvoqrgUQIEAZWLGO7302-79-84 10:50:01 Test Item Value Reference Range Interpretation Comments MCV (test code = MCV) 80.7 80.0-94.0 [facility] CenterDkmolzcNGHETDUKUF9806-55-69 10:50:01 Test Item Value Reference Range Interpretation Comments MCHC (test code = MCHC) 34.0 32.0-36.0 [facility] CenterJkvryfiKRJHZRHHLV7495-56-03 10:50:01 Test Item Value Reference Range Interpretation Comments RDW (test code = RDW) 18.9 11.5-14.5 [facility] CenterOdtpqdrXGAMNJLTBH0022-88-62 10:50:01 Test Item Value Reference Range Interpretation Comments Hct (test code = Hct) 43.3 42.0-54.0 [facility] CenterHgcnhgiNQTYDNXMPI8276-34-96 10:50:01 Test Item Value Reference Range Interpretation Comments WBC (test code = WBC) 9.3 3.7-10.4 [facility] CenterUiatgyuIMQXPINCXQ4196-84-47 10:50:01 Test Item Value Reference Range Interpretation Comments Hgb (test code = Hgb) 14.7 14.0-18.0 [facility] CenterBzzjqapJGWOOPDOIL0193-74-40 10:50:01 Test Item Value Reference Range Interpretation Comments RBC (test code = RBC) 5.36 4.70-6.10 [facility] CenterMxgglvoEDDOAZVYIG6740-73-72 10:50:01 Test Item Value Reference Range Interpretation Comments Eosinophils # (test code 0.2 See_Comment [A utomated message] The = Eosinophils #) system whic h generated this result tra nsmitted reference range : <=0.5. The reference r boubacar was not used to int erpret this result as normal/abnormal . [facility] CenterDggiinkTCGVNECOUT3158-55-33 10:50:01 Test Item Value Reference Range Interpretation Comments Basophils # (test code 0.1 See_Comment [Aut omated message] The = Basophils #) system which generated this result tra nsmitted reference range : <=0.2. The reference r boubacar was not used to int erpret this result as normal/abnormal . [facility] CenterTbubpjtUBWLVWOCEJ9946-27-96 10:50:01 Test Item Value Reference Range Interpretation Comments Lymphocytes # (test code = Lymphocytes 1.8 1.0-5.5 #) [facility] CenterIaewzfrXPUIFHOOKL6700-27-37 10:50:01 Test Item Value Reference Range Interpretation Comments Monocytes # (test code 0.9 See_Comment [Aut omated message] The = Monocytes #) system which generated this result tra nsmitted reference range : <=0.8. The reference r boubacar was not used to int erpret this result as normal/abnormal . [facility] CenterKuakfedAWPOEFVEJD2735-28-43 10:50:01 Test Item Value Reference Range Interpretation Comments Neutrophils # (test code = Neutrophils 6.3 1.5-8.1 #) [facility] CenterXnieqatZUYOBNMMKT3432-09-64 10:50:01 Test Item Value Reference Range Interpretation Comments Eosinophils (test code = 2.0 See_Comment [A utomated message] The Eosinophils) system which ge nerated this result tra nsmitted reference range : <=4.0. The reference r boubacar was not used to int erpret this result as normal/abnormal . [facility] CenterSxgpsxbEAFWSCBAQJ6156-31-60 10:50:01 Test Item Value Reference Range Interpretation Comments Segs (test code = Segs) 67.4 45.0-75.0 [facility] CenterCmzihdoGCRZFTRQZJ2791-24-14 10:50:01 Test Item Value Reference Range Interpretation Comments Lymphocytes (test code = Lymphocytes) 19.9 20.0-40.0 [facility] CenterPneqynlTUDWQSUPQH1863-54-05 10:50:01 Test Item Value Reference Range Interpretation Comments Basophils (test code = 1.0 See_Comment [Aut omated message] The Basophils) system which ge nerated this result tra nsmitted reference range : <=1.0. The reference r boubacar was not used to int erpret this result as normal/abnormal . [facility] CenterWxctmvkKPOHLCQHMD2683-29-47 10:50:01 Test Item Value Reference Range Interpretation Comments Monocytes (test code = Monocytes) 9.7 2.0-12.0 [facility]2018-05-08 05:42:00 Test Item Value Reference Range Interpretation Comments B/C Ratio (test code = B/C Ratio) 17 1 6-25 [facility]2018-05-08 05:42:00 Test Item Value Reference Range Interpretation Comments Globulin (test code = Globulin) 4.3 2.7-4.2 [facility]2018-05-08 05:42:00 Test Item Value Reference Range Interpretation Comments A/G Ratio (test code = A/G Ratio) 0.7 1 0.7-1.6 [facility]2018-05-08 05:42:00 Test Item Value Reference Range Interpretation Comments AGAP (test code = AGAP) 14.4 10.0-20.0 [facility]2018-05-08 05:42:00 Test Item Value Reference Range Interpretation Comments eGFR (test code = eGFR) 113 [facility]2018-05-08 05:42:00 Test Item Value Reference Range Interpretation Comments Alk Phos (test code = Alk Phos) 76 39-136 [facility]2018-05-08 05:42:00 Test Item Value Reference Range Interpretation Comments ALT (test code = ALT) 35 See_Comment [Auto mated message] The system which ge nerated this result transmit lester reference range : <=65. The reference range was not used to interpr et this result as dany l/abnormal. [facility]2018-05-08 05:42:00 Test Item Value Reference Range Interpretation Comments Albumin Lvl (test code = Albumin Lvl) 2.8 3.5-5.0 [facility]2018-05-08 05:42:00 Test Item Value Reference Range Interpretation Comments Total Protein (test code = Total 7.1 6.4-8.4 Protein) [facility]2018-05-08 05:42:00 Test Item Value Reference Range Interpretation Comments Calcium Lvl (test code = Calcium Lvl) 8.7 8.5-10.5 [facility]2018-05-08 05:42:00 Test Item Value Reference Range Interpretation Comments AST (test code = AST) 18 See_Comment [Auto mated message] The system which ge nerated this result transmit lester reference range : <=37. The reference range was not used to interpr et this result as dany l/abnormal. [facility]2018-05-08 05:42:00 Test Item Value Reference Range Interpretation Comments Bili Total (test code = Bili Total) 0.3 0.2-1.3 [place] 671778-05-08 05:42:00 Test Item Value Reference Range Interpretation Comments Potassium Lvl (test code = Potassium 4.4 3.5-5.1 Lvl) [facility]2018-05-08 05:42:00 Test Item Value Reference Range Interpretation Comments Chloride Lvl (test code = Chloride Lvl) 109 95-109 [facility]2018-05-08 05:42:00 Test Item Value Reference Range Interpretation Comments CO2 (test code = CO2) 23 24-32 [facility]2018-05-08 05:42:00 Test Item Value Reference Range Interpretation Comments Glucose Lvl (test code = Glucose Lvl) 114 70-99 [facility]2018-05-08 05:42:00 Test Item Value Reference Range Interpretation Comments Creatinine Lvl (test code = Creatinine 1.01 0.50-1.40 Lvl) [facility]2018-05-08 05:42:00 Test Item Value Reference Range Interpretation Comments BUN (test code = BUN) 17 7-22 [facility]2018-05-08 05:42:00 Test Item Value Reference Range Interpretation Comments Sodium Lvl (test code = Sodium Lvl) 142 135-145 [facility] CenterWndujjkJQJIIDQYQF7554-19-54 05:42:00 Test Item Value Reference Range Interpretation Comments Basophils (test code = 0.6 See_Comment [Aut omated message] The Basophils) system which ge nerated this result tra nsmitted reference range : <=1.0. The reference r boubacar was not used to int erpret this result as normal/abnormal . [facility] CenterPpsxgucQZSHELWXZW3186-52-36 05:42:00 Test Item Value Reference Range Interpretation Comments Segs-Bands # (test code = Segs-Bands #) 4.8 1.5-8.1 [facility] CenterOghbqexTTUUIQUJZY2011-72-49 05:42:00 Test Item Value Reference Range Interpretation Comments Monocytes # (test code 0.7 See_Comment [Aut omated message] The = Monocytes #) system which generated this result tra nsmitted reference range : <=0.8. The reference r boubacar was not used to int erpret this result as normal/abnormal . [facility] CenterIhtbojyTCMHAGPZND2561-50-01 05:42:00 Test Item Value Reference Range Interpretation Comments Lymphocytes # (test code = Lymphocytes 1.9 1.0-5.5 #) [facility] CenterKrqhbkrSKYXCFSROV7878-73-93 05:42:00 Test Item Value Reference Range Interpretation Comments Monocytes (test code = Monocytes) 9.4 2.0-12.0 [facility] CenterWlmggshJKLKTRNKMF8992-29-30 05:42:00 Test Item Value Reference Range Interpretation Comments Eosinophils # (test code 0.2 See_Comment [A utomated message] The = Eosinophils #) system whic h generated this result tra nsmitted reference range : <=0.5. The reference r boubacar was not used to int erpret this result as normal/abnormal . [facility] CenterTnusxrxRTGVIEKKFU1250-19-59 05:42:00 Test Item Value Reference Range Interpretation Comments Eosinophils (test code = 2.9 See_Comment [A utomated message] The Eosinophils) system which ge nerated this result tra nsmitted reference range : <=4.0. The reference r boubacar was not used to int erpret this result as normal/abnormal . [facility] CenterMorywtfDGVYIRTAME3720-13-03 05:42:00 Test Item Value Reference Range Interpretation Comments Segs (test code = Segs) 62.2 45.0-75.0 [facility] CenterUocypwuYVFGJQBAGR0980-43-41 05:42:00 Test Item Value Reference Range Interpretation Comments Lymphocytes (test code = Lymphocytes) 24.9 20.0-40.0 [facility] CenterRdpyndnSHXMKWZUVT2801-73-64 05:42:00 Test Item Value Reference Range Interpretation Comments MCH (test code = MCH) 27.5 pg 27.0-31.0 [facility] CenterWrzqhveIYXMVEDMXU8062-36-69 05:42:00 Test Item Value Reference Range Interpretation Comments MCV (test code = MCV) 85.3 80.0-94.0 [facility] CenterVtykxldZNPBWHEPOT9072-42-66 05:42:00 Test Item Value Reference Range Interpretation Comments Hct (test code = Hct) 43.9 42.0-54.0 [facility] CenterCduzokiVHVGVMFHIB2611-74-65 05:42:00 Test Item Value Reference Range Interpretation Comments Hgb (test code = Hgb) 14.2 14.0-18.0 [facility] CenterRqmqwmmMBUFULIVTD8266-70-48 05:42:00 Test Item Value Reference Range Interpretation Comments WBC (test code = WBC) 7.7 3.7-10.4 [facility] CenterItvlrvvRSXIPBQHPK9639-48-69 05:42:00 Test Item Value Reference Range Interpretation Comments RBC (test code = RBC) 5.15 4.70-6.10 [facility] CenterXcobhotBBUQKUDWWN6372-18-42 05:42:00 Test Item Value Reference Range Interpretation Comments MPV (test code = MPV) 8.4 7.4-10.4 [facility] CenterYglkmyuWKBXTJHLBV5809-72-53 05:42:00 Test Item Value Reference Range Interpretation Comments MCHC (test code = MCHC) 32.3 32.0-36.0 [facility] CenterUdaxnrjPYXQUQVHEZ1067-88-34 05:42:00 Test Item Value Reference Range Interpretation Comments RDW (test code = RDW) 17.3 11.5-14.5 [facility] CenterTqelyenLNPHTSDLXG9953-28-52 05:42:00 Test Item Value Reference Range Interpretation Comments Platelet (test code = Platelet) 317 133-450 [facility]2018-05-08 05:42:00 Test Item Value Reference Range Interpretation Comments B/C Ratio (test code = B/C Ratio) 17 1 6-25 [facility]2018-05-08 05:42:00 Test Item Value Reference Range Interpretation Comments Globulin (test code = Globulin) 4.3 2.7-4.2 [facility]2018-05-08 05:42:00 Test Item Value Reference Range Interpretation Comments A/G Ratio (test code = A/G Ratio) 0.7 1 0.7-1.6 [facility]2018-05-08 05:42:00 Test Item Value Reference Range Interpretation Comments AGAP (test code = AGAP) 14.4 10.0-20.0 [facility]2018-05-08 05:42:00 Test Item Value Reference Range Interpretation Comments eGFR (test code = eGFR) 113 [facility]2018-05-08 05:42:00 Test Item Value Reference Range Interpretation Comments Alk Phos (test code = Alk Phos) 76 39-136 [facility]2018-05-08 05:42:00 Test Item Value Reference Range Interpretation Comments ALT (test code = ALT) 35 See_Comment [Auto mated message] The system which ge nerated this result transmit lester reference range : <=65. The reference range was not used to interpr et this result as dany l/abnormal. [facility]2018-05-08 05:42:00 Test Item Value Reference Range Interpretation Comments Albumin Lvl (test code = Albumin Lvl) 2.8 3.5-5.0 [facility]2018-05-08 05:42:00 Test Item Value Reference Range Interpretation Comments Total Protein (test code = Total 7.1 6.4-8.4 Protein) [facility]2018-05-08 05:42:00 Test Item Value Reference Range Interpretation Comments Calcium Lvl (test code = Calcium Lvl) 8.7 8.5-10.5 [facility]2018-05-08 05:42:00 Test Item Value Reference Range Interpretation Comments AST (test code = AST) 18 See_Comment [Auto mated message] The system which ge nerated this result transmit lester reference range : <=37. The reference range was not used to interpr et this result as dany l/abnormal. [facility]2018-05-08 05:42:00 Test Item Value Reference Range Interpretation Comments Bili Total (test code = Bili Total) 0.3 0.2-1.3 [facility]2018-05-08 05:42:00 Test Item Value Reference Range Interpretation Comments Potassium Lvl (test code = Potassium 4.4 3.5-5.1 Lvl) [facility]2018-05-08 05:42:00 Test Item Value Reference Range Interpretation Comments Chloride Lvl (test code = Chloride Lvl) 109 95-109 [facility]2018-05-08 05:42:00 Test Item Value Reference Range Interpretation Comments CO2 (test code = CO2) 23 24-32 [facility]2018-05-08 05:42:00 Test Item Value Reference Range Interpretation Comments Glucose Lvl (test code = Glucose Lvl) 114 70-99 [facility]2018-05-08 05:42:00 Test Item Value Reference Range Interpretation Comments Creatinine Lvl (test code = Creatinine 1.01 0.50-1.40 Lvl) [facility]2018-05-08 05:42:00 Test Item Value Reference Range Interpretation Comments BUN (test code = BUN) 17 7-22 [facility]2018-05-08 05:42:00 Test Item Value Reference Range Interpretation Comments Sodium Lvl (test code = Sodium Lvl) 142 135-145 [facility] CenterJjlwhgmGNMUSRQHKO4338-22-89 05:42:00 Test Item Value Reference Range Interpretation Comments Basophils (test code = 0.6 See_Comment [Aut omated message] The Basophils) system which ge nerated this result tra nsmitted reference range : <=1.0. The reference r boubacar was not used to int erpret this result as normal/abnormal . [facility] CenterLvaznnuZNFXZHLYDA3805-87-79 05:42:00 Test Item Value Reference Range Interpretation Comments Segs-Bands # (test code = Segs-Bands #) 4.8 1.5-8.1 [facility] CenterQshuswbHPZNAFSPOM3960-89-52 05:42:00 Test Item Value Reference Range Interpretation Comments Monocytes # (test code 0.7 See_Comment [Aut omated message] The = Monocytes #) system which generated this result tra nsmitted reference range : <=0.8. The reference r boubacar was not used to int erpret this result as normal/abnormal . [facility] CenterYtkpnbzMTTKAPEWGO4196-69-55 05:42:00 Test Item Value Reference Range Interpretation Comments Lymphocytes # (test code = Lymphocytes 1.9 1.0-5.5 #) [facility] CenterCsopqgpMVXREPSFRJ4908-47-83 05:42:00 Test Item Value Reference Range Interpretation Comments Monocytes (test code = Monocytes) 9.4 2.0-12.0 [facility] CenterYcysqkcICPLLRXYIB5559-89-50 05:42:00 Test Item Value Reference Range Interpretation Comments Eosinophils # (test code 0.2 See_Comment [A utomated message] The = Eosinophils #) system whic h generated this result tra nsmitted reference range : <=0.5. The reference r boubacar was not used to int erpret this result as normal/abnormal . [facility] CenterDbdkvleGBMROXUBTG3822-52-66 05:42:00 Test Item Value Reference Range Interpretation Comments Eosinophils (test code = 2.9 See_Comment [A utomated message] The Eosinophils) system which ge nerated this result tra nsmitted reference range : <=4.0. The reference r boubacar was not used to int erpret this result as normal/abnormal . [facility] CenterDcmumqyIIGSCXSCMF2335-72-46 05:42:00 Test Item Value Reference Range Interpretation Comments Segs (test code = Segs) 62.2 45.0-75.0 [facility] CenterWmtlquzQCOSMFQBRO9681-70-63 05:42:00 Test Item Value Reference Range Interpretation Comments Lymphocytes (test code = Lymphocytes) 24.9 20.0-40.0 [facility] CenterHjixsyfUELLTNPFFF1603-94-95 05:42:00 Test Item Value Reference Range Interpretation Comments MCH (test code = MCH) 27.5 pg 27.0-31.0 [facility] CenterCfrmfgaXMZTAPTBAG7876-76-20 05:42:00 Test Item Value Reference Range Interpretation Comments MCV (test code = MCV) 85.3 80.0-94.0 [facility] CenterKndybvgJKRCFLMETG4980-09-45 05:42:00 Test Item Value Reference Range Interpretation Comments Hct (test code = Hct) 43.9 42.0-54.0 [facility] CenterSdlfsomKGCJLCIQKB4951-20-09 05:42:00 Test Item Value Reference Range Interpretation Comments Hgb (test code = Hgb) 14.2 14.0-18.0 [facility] CenterDnavdosBFVUMTYCRU5618-13-00 05:42:00 Test Item Value Reference Range Interpretation Comments WBC (test code = WBC) 7.7 3.7-10.4 [facility] CenterTdywqdiGMVRUNCTFI1884-20-14 05:42:00 Test Item Value Reference Range Interpretation Comments RBC (test code = RBC) 5.15 4.70-6.10 [facility] CenterIwzlzmqOUWZFWBIQA6027-45-85 05:42:00 Test Item Value Reference Range Interpretation Comments MPV (test code = MPV) 8.4 7.4-10.4 [facility] CenterPycucweKFBCDELGPE4791-04-13 05:42:00 Test Item Value Reference Range Interpretation Comments MCHC (test code = MCHC) 32.3 32.0-36.0 [facility] CenterRnxqqhjPQVMEBNBON4385-74-23 05:42:00 Test Item Value Reference Range Interpretation Comments RDW (test code = RDW) 17.3 11.5-14.5 [facility] CenterFuijshnIODBUNLDIF6422-14-13 05:42:00 Test Item Value Reference Range Interpretation Comments Platelet (test code = Platelet) 317 133-450 [facility]2018-05-07 09:36:00 Test Item Value Reference Range Interpretation Comments Globulin (test code = Globulin) 4.4 2.7-4.2 [facility]2018-05-07 09:36:00 Test Item Value Reference Range Interpretation Comments A/G Ratio (test code = A/G Ratio) 0.6 1 0.7-1.6 [place] 671778-05-07 09:36:00 Test Item Value Reference Range Interpretation Comments B/C Ratio (test code = B/C Ratio) 17 1 6-25 [facility]2018-05-07 09:36:00 Test Item Value Reference Range Interpretation Comments AGAP (test code = AGAP) 11.3 10.0-20.0 [facility]2018-05-07 09:36:00 Test Item Value Reference Range Interpretation Comments eGFR (test code = eGFR) 134 [facility]2018-05-07 09:36:00 Test Item Value Reference Range Interpretation Comments Creatinine Lvl (test code = Creatinine 0.84 0.50-1.40 Lvl) [facility]2018-05-07 09:36:00 Test Item Value Reference Range Interpretation Comments Sodium Lvl (test code = Sodium Lvl) 142 135-145 [facility]2018-05-07 09:36:00 Test Item Value Reference Range Interpretation Comments Glucose Lvl (test code = Glucose Lvl) 99 70-99 [facility]2018-05-07 09:36:00 Test Item Value Reference Range Interpretation Comments BUN (test code = BUN) 14 7-22 [facility]2018-05-07 09:36:00 Test Item Value Reference Range Interpretation Comments Alk Phos (test code = Alk Phos) 79 39-136 [facility]2018-05-07 09:36:00 Test Item Value Reference Range Interpretation Comments Bili Total (test code = Bili Total) 0.3 0.2-1.3 [facility]2018-05-07 09:36:00 Test Item Value Reference Range Interpretation Comments AST (test code = AST) 14 See_Comment [Auto mated message] The system which ge nerated this result transmit lester reference range : <=37. The reference range was not used to interpr et this result as dany l/abnormal. [place] 671778-05-07 09:36:00 Test Item Value Reference Range Interpretation Comments ALT (test code = ALT) 43 See_Comment [Auto mated message] The system which ge nerated this result transmit lester reference range : <=65. The reference range was not used to interpr et this result as dany l/abnormal. [facility]2018-05-07 09:36:00 Test Item Value Reference Range Interpretation Comments Total Protein (test code = Total 7.1 6.4-8.4 Protein) [place] 671778-05-07 09:36:00 Test Item Value Reference Range Interpretation Comments Albumin Lvl (test code = Albumin Lvl) 2.7 3.5-5.0 [place] 671778-05-07 09:36:00 Test Item Value Reference Range Interpretation Comments Calcium Lvl (test code = Calcium Lvl) 9.2 8.5-10.5 [facility]2018-05-07 09:36:00 Test Item Value Reference Range Interpretation Comments CO2 (test code = CO2) 21 24-32 [facility]2018-05-07 09:36:00 Test Item Value Reference Range Interpretation Comments Potassium Lvl (test code = Potassium 4.3 3.5-5.1 Lvl) [place] 671778-05-07 09:36:00 Test Item Value Reference Range Interpretation Comments Chloride Lvl (test code = Chloride Lvl) 114 95-109 [facility] CenterJickhylLFIAISSTSG8308-89-27 09:36:00 Test Item Value Reference Range Interpretation Comments MCHC (test code = MCHC) 32.5 32.0-36.0 [facility] CenterMzzslyzZKYDVKEHAB7482-17-94 09:36:00 Test Item Value Reference Range Interpretation Comments RDW (test code = RDW) 17.5 11.5-14.5 [address]05-07 09:36:00 Test Item Value Reference Range Interpretation Comments Platelet (test code = Platelet) 400 133-450 [facility] CenterIixvkyuQRTKKHADME0787-67-59 09:36:00 Test Item Value Reference Range Interpretation Comments MPV (test code = MPV) 8.5 7.4-10.4 [facility] CenterEycsxuqLPGJRDITCW2663-13-41 09:36:00 Test Item Value Reference Range Interpretation Comments WBC (test code = WBC) 6.6 3.7-10.4 [facility] CenterGaunkckFPRGRQMWXY6955-86-91 09:36:00 Test Item Value Reference Range Interpretation Comments RBC (test code = RBC) 5.17 4.70-6.10 [facility] CenterJqmphyoDYMKYNOIPL3086-22-59 09:36:00 Test Item Value Reference Range Interpretation Comments MCV (test code = MCV) 86.1 80.0-94.0 [facility] CenterPxkgqadALAMXOODKV7743-91-84 09:36:00 Test Item Value Reference Range Interpretation Comments Hct (test code = Hct) 44.5 42.0-54.0 [facility] CenterUfxpmoyTKGCMZRGRY4873-59-20 09:36:00 Test Item Value Reference Range Interpretation Comments MCH (test code = MCH) 28.0 pg 27.0-31.0 [facility] CenterChlqutoWVIGPIKGLO1336-36-48 09:36:00 Test Item Value Reference Range Interpretation Comments Hgb (test code = Hgb) 14.5 14.0-18.0 [facility] CenterXmsdwcoZYNKTMSCQY1925-64-86 09:36:00 Test Item Value Reference Range Interpretation Comments Lymphocytes # (test code = Lymphocytes 1.7 1.0-5.5 #) [facility] CenterXnlmiufJNCVLGGJRA2535-66-23 09:36:00 Test Item Value Reference Range Interpretation Comments Monocytes # (test code 0.7 See_Comment [Aut omated message] The = Monocytes #) system which generated this result tra nsmitted reference range : <=0.8. The reference r boubacar was not used to int erpret this result as normal/abnormal . [facility] CenterDlbnkyzDZGAUZDIDQ9439-36-04 09:36:00 Test Item Value Reference Range Interpretation Comments Eosinophils # (test code 0.2 See_Comment [A utomated message] The = Eosinophils #) system whic h generated this result tra nsmitted reference range : <=0.5. The reference r boubacar was not used to int erpret this result as normal/abnormal . [facility] CenterNduprgjYBXALWOAWC9277-93-00 09:36:00 Test Item Value Reference Range Interpretation Comments Lymphocytes (test code = Lymphocytes) 26.1 20.0-40.0 [facility] CenterOnmyowuAAGWJYORII5573-68-63 09:36:00 Test Item Value Reference Range Interpretation Comments Segs (test code = Segs) 59.3 45.0-75.0 [facility] CenterBncrnnrSYDXLWLFKE7119-88-23 09:36:00 Test Item Value Reference Range Interpretation Comments Basophils (test code = 0.8 See_Comment [Aut omated message] The Basophils) system which ge nerated this result tra nsmitted reference range : <=1.0. The reference r boubacar was not used to int erpret this result as normal/abnormal . [place] 744708-05-07 09:36:00 Test Item Value Reference Range Interpretation Comments Monocytes (test code = Monocytes) 10.5 2.0-12.0 [facility] CenterJdnlyygYEYQONWUKR2428-19-91 09:36:00 Test Item Value Reference Range Interpretation Comments Eosinophils (test code = 3.3 See_Comment [A utomated message] The Eosinophils) system which ge nerated this result tra nsmitted reference range : <=4.0. The reference r boubacar was not used to int erpret this result as normal/abnormal . [facility] CenterPfbfubcSRMCHVLDWL3941-27-74 09:36:00 Test Item Value Reference Range Interpretation Comments Segs-Bands # (test code = Segs-Bands #) 3.9 1.5-8.1 [facility]2018-05-07 09:36:00 Test Item Value Reference Range Interpretation Comments Globulin (test code = Globulin) 4.4 2.7-4.2 [facility]2018-05-07 09:36:00 Test Item Value Reference Range Interpretation Comments A/G Ratio (test code = A/G Ratio) 0.6 1 0.7-1.6 [place] 671778-05-07 09:36:00 Test Item Value Reference Range Interpretation Comments B/C Ratio (test code = B/C Ratio) 17 1 6-25 [place] 671778-05-07 09:36:00 Test Item Value Reference Range Interpretation Comments AGAP (test code = AGAP) 11.3 10.0-20.0 [facility]2018-05-07 09:36:00 Test Item Value Reference Range Interpretation Comments eGFR (test code = eGFR) 134 [facility]2018-05-07 09:36:00 Test Item Value Reference Range Interpretation Comments Creatinine Lvl (test code = Creatinine 0.84 0.50-1.40 Lvl) [place] 671778-05-07 09:36:00 Test Item Value Reference Range Interpretation Comments Sodium Lvl (test code = Sodium Lvl) 142 135-145 [place] [address]-05-07 09:36:00 Test Item Value Reference Range Interpretation Comments Glucose Lvl (test code = Glucose Lvl) 99 70-99 [facility]2018-05-07 09:36:00 Test Item Value Reference Range Interpretation Comments BUN (test code = BUN) 14 7-22 [place] 671778-05-07 09:36:00 Test Item Value Reference Range Interpretation Comments Alk Phos (test code = Alk Phos) 79 39-136 [place] 671778-05-07 09:36:00 Test Item Value Reference Range Interpretation Comments Bili Total (test code = Bili Total) 0.3 0.2-1.3 [place] 671778-05-07 09:36:00 Test Item Value Reference Range Interpretation Comments AST (test code = AST) 14 See_Comment [Auto mated message] The system which ge nerated this result transmit lester reference range : <=37. The reference range was not used to interpr et this result as dany l/abnormal. [place] 671778-05-07 09:36:00 Test Item Value Reference Range Interpretation Comments ALT (test code = ALT) 43 See_Comment [Auto mated message] The system which ge nerated this result transmit lester reference range : <=65. The reference range was not used to interpr et this result as dany l/abnormal. [place] [address]-05-07 09:36:00 Test Item Value Reference Range Interpretation Comments Total Protein (test code = Total 7.1 6.4-8.4 Protein) [place] 671778-05-07 09:36:00 Test Item Value Reference Range Interpretation Comments Albumin Lvl (test code = Albumin Lvl) 2.7 3.5-5.0 [facility]2018-05-07 09:36:00 Test Item Value Reference Range Interpretation Comments Calcium Lvl (test code = Calcium Lvl) 9.2 8.5-10.5 [facility]2018-05-07 09:36:00 Test Item Value Reference Range Interpretation Comments CO2 (test code = CO2) 21 24-32 [facility]2018-05-07 09:36:00 Test Item Value Reference Range Interpretation Comments Potassium Lvl (test code = Potassium 4.3 3.5-5.1 Lvl) [facility]2018-05-07 09:36:00 Test Item Value Reference Range Interpretation Comments Chloride Lvl (test code = Chloride Lvl) 114 95-109 [facility] CenterEpsmdtaIPIPDHYUXX2183-57-13 09:36:00 Test Item Value Reference Range Interpretation Comments MCHC (test code = MCHC) 32.5 32.0-36.0 [facility] CenterRjdkeeoQQNKHULUHF8154-40-87 09:36:00 Test Item Value Reference Range Interpretation Comments RDW (test code = RDW) 17.5 11.5-14.5 [facility] CenterTsfcsejKVOXQOOSIP0350-01-31 09:36:00 Test Item Value Reference Range Interpretation Comments Platelet (test code = Platelet) 400 133-450 [facility] CenterVftkjhcEYXJASEGJK1549-85-62 09:36:00 Test Item Value Reference Range Interpretation Comments MPV (test code = MPV) 8.5 7.4-10.4 [facility] CenterQjbszelLGWZDEOZMD2403-04-96 09:36:00 Test Item Value Reference Range Interpretation Comments WBC (test code = WBC) 6.6 3.7-10.4 [facility] CenterArtnfzcTVLLQJYHNU6913-70-16 09:36:00 Test Item Value Reference Range Interpretation Comments RBC (test code = RBC) 5.17 4.70-6.10 [facility] CenterGdydghoCRFLKFHHZY8954-06-39 09:36:00 Test Item Value Reference Range Interpretation Comments MCV (test code = MCV) 86.1 80.0-94.0 [place] 744708-05-07 09:36:00 Test Item Value Reference Range Interpretation Comments Hct (test code = Hct) 44.5 42.0-54.0 [facility] CenterYdfaycsPFGHVGDVNJ4596-00-67 09:36:00 Test Item Value Reference Range Interpretation Comments MCH (test code = MCH) 28.0 pg 27.0-31.0 [facility] CenterVgingceRGZFNKFCPT9034-65-91 09:36:00 Test Item Value Reference Range Interpretation Comments Hgb (test code = Hgb) 14.5 14.0-18.0 [facility] CenterNjuxewdEECPZHNLVW9186-49-81 09:36:00 Test Item Value Reference Range Interpretation Comments Lymphocytes # (test code = Lymphocytes 1.7 1.0-5.5 #) [facility] CenterSdbzcbbZXSVCRANBE6135-77-69 09:36:00 Test Item Value Reference Range Interpretation Comments Monocytes # (test code 0.7 See_Comment [Aut omated message] The = Monocytes #) system which generated this result tra nsmitted reference range : <=0.8. The reference r boubacar was not used to int erpret this result as normal/abnormal . [facility] CenterKkftrydRCBYTVDBMB4091-30-36 09:36:00 Test Item Value Reference Range Interpretation Comments Eosinophils # (test code 0.2 See_Comment [A utomated message] The = Eosinophils #) system whic h generated this result tra nsmitted reference range : <=0.5. The reference r boubacar was not used to int erpret this result as normal/abnormal . [facility] CenterYctvgbjFKWGESIIYS5425-62-32 09:36:00 Test Item Value Reference Range Interpretation Comments Lymphocytes (test code = Lymphocytes) 26.1 20.0-40.0 [facility] CenterUtobkkcNMIKVAXVGE3570-86-69 09:36:00 Test Item Value Reference Range Interpretation Comments Segs (test code = Segs) 59.3 45.0-75.0 [facility] CenterUzssvxuHBGELUCIFR3600-93-54 09:36:00 Test Item Value Reference Range Interpretation Comments Basophils (test code = 0.8 See_Comment [Aut omated message] The Basophils) system which ge nerated this result tra nsmitted reference range : <=1.0. The reference r boubacar was not used to int erpret this result as normal/abnormal . [facility] CenterSsspfwpVSAYOFGEXB5776-27-82 09:36:00 Test Item Value Reference Range Interpretation Comments Monocytes (test code = Monocytes) 10.5 2.0-12.0 [facility] CenterQogkdhyLOIUHVYHSZ7221-97-93 09:36:00 Test Item Value Reference Range Interpretation Comments Eosinophils (test code = 3.3 See_Comment [A utomated message] The Eosinophils) system which ge nerated this result tra nsmitted reference range : <=4.0. The reference r boubacar was not used to int erpret this result as normal/abnormal . [facility] CenterYywomqzWLUMSBDYMM5290-11-47 09:36:00 Test Item Value Reference Range Interpretation Comments Segs-Bands # (test code = Segs-Bands #) 3.9 1.5-8.1 [place] 302138-05-06 21:02:00 Test Item Value Reference Range Interpretation Comments Vanco Tr TND (test code = Vanco Tr 15:30pm TND) [place] [id number] 21:02:00 Test Item Value Reference Range Interpretation Comments Vanco Tr (test code = Vanco Tr) 9.1 [place] [id number] 21:02:00 Test Item Value Reference Range Interpretation Comments Vanco Tr TND (test code = Vanco Tr 15:30pm TND) [place] [id number] 21:02:00 Test Item Value Reference Range Interpretation Comments Vanco Tr (test code = Vanco Tr) 9.1 [facility]2018-05-06 07:07:00 Test Item Value Reference Range Interpretation Comments Glucose Lvl (test code = Glucose Lvl) 74 70-99 [facility]2018-05-06 07:07:00 Test Item Value Reference Range Interpretation Comments BUN (test code = BUN) 12 7-22 [facility]2018-05-06 07:07:00 Test Item Value Reference Range Interpretation Comments Creatinine Lvl (test code = Creatinine 0.75 0.50-1.40 Lvl) [facility]2018-05-06 07:07:00 Test Item Value Reference Range Interpretation Comments eGFR (test code = eGFR) 140 [facility]2018-05-06 07:07:00 Test Item Value Reference Range Interpretation Comments Albumin Lvl (test code = Albumin Lvl) 2.9 3.5-5.0 [facility]2018-05-06 07:07:00 Test Item Value Reference Range Interpretation Comments Globulin (test code = Globulin) 4.4 2.7-4.2 [place] 671778-05-06 07:07:00 Test Item Value Reference Range Interpretation Comments A/G Ratio (test code = A/G Ratio) 0.7 1 0.7-1.6 [place] [address]-05-06 07:07:00 Test Item Value Reference Range Interpretation Comments Bili Total (test code = Bili Total) 0.4 0.2-1.3 [place] [address]-05-06 07:07:00 Test Item Value Reference Range Interpretation Comments Alk Phos (test code = Alk Phos) 71 39-136 [place] [address]-05-06 07:07:00 Test Item Value Reference Range Interpretation Comments AST (test code = AST) 15 See_Comment [Auto mated message] The system which ge nerated this result transmit lester reference range : <=37. The reference range was not used to interpr et this result as dany l/abnormal. [place] [address]-05-06 07:07:00 Test Item Value Reference Range Interpretation Comments ALT (test code = ALT) 28 See_Comment [Auto mated message] The system which ge nerated this result transmit lester reference range : <=65. The reference range was not used to interpr et this result as dany l/abnormal. [place] 671778-05-06 07:07:00 Test Item Value Reference Range Interpretation Comments Potassium Lvl (test code = Potassium 4.4 3.5-5.1 Lvl) [place] 671778-05-06 07:07:00 Test Item Value Reference Range Interpretation Comments Sodium Lvl (test code = Sodium Lvl) 147 135-145 [place] 671778-05-06 07:07:00 Test Item Value Reference Range Interpretation Comments CO2 (test code = CO2) 25 24-32 [place] 671778-05-06 07:07:00 Test Item Value Reference Range Interpretation Comments Chloride Lvl (test code = Chloride Lvl) 114 95-109 [place] [address]-05-06 07:07:00 Test Item Value Reference Range Interpretation Comments B/C Ratio (test code = B/C Ratio) 16 1 6-25 [facility]2018-05-06 07:07:00 Test Item Value Reference Range Interpretation Comments Calcium Lvl (test code = Calcium Lvl) 8.7 8.5-10.5 [facility]2018-05-06 07:07:00 Test Item Value Reference Range Interpretation Comments AGAP (test code = AGAP) 12.4 10.0-20.0 [facility]2018-05-06 07:07:00 Test Item Value Reference Range Interpretation Comments Total Protein (test code = Total 7.3 6.4-8.4 Protein) [facility] CenterReyzbwjLAJMYZJWZW9154-26-18 07:07:00 Test Item Value Reference Range Interpretation Comments Platelet (test code = Platelet) 345 133-450 [facility] CenterRnksndxOMPUNJIHSP7973-97-40 07:07:00 Test Item Value Reference Range Interpretation Comments MPV (test code = MPV) 8.7 7.4-10.4 [facility] CenterGpflhryLBWFJNGVXO4066-27-15 07:07:00 Test Item Value Reference Range Interpretation Comments WBC (test code = WBC) 6.9 3.7-10.4 [facility] CenterRzgfugeFNAUHFAXYS9286-64-34 07:07:00 Test Item Value Reference Range Interpretation Comments RBC (test code = RBC) 5.30 4.70-6.10 [facility] CenterQfpzegdPVSLUGDABF9963-16-05 07:07:00 Test Item Value Reference Range Interpretation Comments MCHC (test code = MCHC) 32.8 32.0-36.0 [facility] CenterLolhedjJDHCLGGLFU3140-09-70 07:07:00 Test Item Value Reference Range Interpretation Comments MCH (test code = MCH) 27.9 pg 27.0-31.0 [facility] CenterXjpcahcGTVWLJAXLW2270-33-41 07:07:00 Test Item Value Reference Range Interpretation Comments Hgb (test code = Hgb) 14.8 14.0-18.0 [facility] CenterSnosivrGAKCYQJHZR9466-08-14 07:07:00 Test Item Value Reference Range Interpretation Comments MCV (test code = MCV) 85.0 80.0-94.0 [facility] CenterKovjdakLRGNTIPDGX1999-24-15 07:07:00 Test Item Value Reference Range Interpretation Comments Hct (test code = Hct) 45.1 42.0-54.0 [facility] CenterJmtcsljXLIPFLHODD7814-83-99 07:07:00 Test Item Value Reference Range Interpretation Comments RDW (test code = RDW) 17.5 11.5-14.5 [facility] CenterFzpzsiyBPAYFEESRC5613-02-79 07:07:00 Test Item Value Reference Range Interpretation Comments Eosinophils # (test code 0.2 See_Comment [A utomated message] The = Eosinophils #) system [facility] generated this result tra nsmitted reference range : <=0.5. The reference r boubacar was not used to int erpret this result as normal/abnormal . [facility] CenterWxhwppyOITMWPCXUZ2305-92-22 07:07:00 Test Item Value Reference Range Interpretation Comments Lymphocytes # (test code = Lymphocytes 2.0 1.0-5.5 #) [facility] CenterAcjnjviKLJKFYQOIN2759-01-50 07:07:00 Test Item Value Reference Range Interpretation Comments Monocytes # (test code 0.7 See_Comment [Aut omated message] The = Monocytes #) system which generated this result tra nsmitted reference range : <=0.8. The reference r boubacar was not used to int erpret this result as normal/abnormal . [facility] CenterBvdndkdYAGWFJLGGO9265-05-62 07:07:00 Test Item Value Reference Range Interpretation Comments Eosinophils (test code = 2.4 See_Comment [A utomated message] The Eosinophils) system which ge nerated this result tra nsmitted reference range : <=4.0. The reference r boubacar was not used to int erpret this result as normal/abnormal . [facility] CenterJpjvydtFBQEKIPWQZ9403-54-30 07:07:00 Test Item Value Reference Range Interpretation Comments Basophils (test code = 0.6 See_Comment [Aut omated message] The Basophils) system which ge nerated this result tra nsmitted reference range : <=1.0. The reference r boubacar was not used to int erpret this result as normal/abnormal . [facility] CenterLpgznmcZTIAQABSCR7792-75-76 07:07:00 Test Item Value Reference Range Interpretation Comments Segs-Bands # (test code = Segs-Bands #) 4.0 1.5-8.1 [facility] CenterLockszbCMJKYCEDIP0585-75-98 07:07:00 Test Item Value Reference Range Interpretation Comments Monocytes (test code = Monocytes) 10.4 2.0-12.0 [facility] CenterHicstqsKNETKRPBVC2304-72-67 07:07:00 Test Item Value Reference Range Interpretation Comments RBC Morph (test code = Normal (11/17/17 2:07 AM) RBC Morph) [facility] CenterQtkpdvpZPBQGHNFMV1113-91-21 07:07:00 Test Item Value Reference Range Interpretation Comments Segs (test code = Segs) 58.1 45.0-75.0 [facility] CenterTpialdmEPEXTAWCSD6116-52-12 07:07:00 Test Item Value Reference Range Interpretation Comments Plt Morph (test code = Normal (11/17/17 2:07 AM) Plt Morph) [facility] CenterIogcwbyBCZAXZJEQT6735-01-29 07:07:00 Test Item Value Reference Range Interpretation Comments Lymphocytes (test code = Lymphocytes) 28.5 20.0-40.0 [facility]2018-05-06 07:07:00 Test Item Value Reference Range Interpretation Comments Glucose Lvl (test code = Glucose Lvl) 74 70-99 [facility]2018-05-06 07:07:00 Test Item Value Reference Range Interpretation Comments BUN (test code = BUN) 12 7-22 [facility]2018-05-06 07:07:00 Test Item Value Reference Range Interpretation Comments Creatinine Lvl (test code = Creatinine 0.75 0.50-1.40 Lvl) [facility]2018-05-06 07:07:00 Test Item Value Reference Range Interpretation Comments eGFR (test code = eGFR) 140 [facility]2018-05-06 07:07:00 Test Item Value Reference Range Interpretation Comments Albumin Lvl (test code = Albumin Lvl) 2.9 3.5-5.0 [facility]2018-05-06 07:07:00 Test Item Value Reference Range Interpretation Comments Globulin (test code = Globulin) 4.4 2.7-4.2 [place] 671778-05-06 07:07:00 Test Item Value Reference Range Interpretation Comments A/G Ratio (test code = A/G Ratio) 0.7 1 0.7-1.6 [place] 671778-05-06 07:07:00 Test Item Value Reference Range Interpretation Comments Bili Total (test code = Bili Total) 0.4 0.2-1.3 [place] 671778-05-06 07:07:00 Test Item Value Reference Range Interpretation Comments Alk Phos (test code = Alk Phos) 71 39-136 [facility]2018-05-06 07:07:00 Test Item Value Reference Range Interpretation Comments AST (test code = AST) 15 See_Comment [Auto mated message] The system which ge nerated this result transmit lester reference range : <=37. The reference range was not used to interpr et this result as dany l/abnormal. [facility]2018-05-06 07:07:00 Test Item Value Reference Range Interpretation Comments ALT (test code = ALT) 28 See_Comment [Auto mated message] The system which ge nerated this result transmit lester reference range : <=65. The reference range was not used to interpr et this result as dany l/abnormal. [facility]2018-05-06 07:07:00 Test Item Value Reference Range Interpretation Comments Potassium Lvl (test code = Potassium 4.4 3.5-5.1 Lvl) [facility]2018-05-06 07:07:00 Test Item Value Reference Range Interpretation Comments Sodium Lvl (test code = Sodium Lvl) 147 135-145 [facility]2018-05-06 07:07:00 Test Item Value Reference Range Interpretation Comments CO2 (test code = CO2) 25 24-32 [facility]2018-05-06 07:07:00 Test Item Value Reference Range Interpretation Comments Chloride Lvl (test code = Chloride Lvl) 114 95-109 [facility]2018-05-06 07:07:00 Test Item Value Reference Range Interpretation Comments B/C Ratio (test code = B/C Ratio) 16 1 6-25 [place] 671778-05-06 07:07:00 Test Item Value Reference Range Interpretation Comments Calcium Lvl (test code = Calcium Lvl) 8.7 8.5-10.5 [facility]2018-05-06 07:07:00 Test Item Value Reference Range Interpretation Comments AGAP (test code = AGAP) 12.4 10.0-20.0 [facility]2018-05-06 07:07:00 Test Item Value Reference Range Interpretation Comments Total Protein (test code = Total 7.3 6.4-8.4 Protein) [place] 744708-05-06 07:07:00 Test Item Value Reference Range Interpretation Comments Platelet (test code = Platelet) 345 133-450 [facility] CenterIvwkdunRTZFOGMTQN0195-28-70 07:07:00 Test Item Value Reference Range Interpretation Comments MPV (test code = MPV) 8.7 7.4-10.4 [facility] CenterQtxyusrNPLLXXJNVR4781-71-13 07:07:00 Test Item Value Reference Range Interpretation Comments WBC (test code = WBC) 6.9 3.7-10.4 [facility] CenterFbvgaarGFDKLHBTRA9206-38-66 07:07:00 Test Item Value Reference Range Interpretation Comments RBC (test code = RBC) 5.30 4.70-6.10 [facility] CenterWqobfxjSDNZGIKKUG4151-56-94 07:07:00 Test Item Value Reference Range Interpretation Comments MCHC (test code = MCHC) 32.8 32.0-36.0 [facility] CenterBquqnlpUJKWKEPBDP2527-31-31 07:07:00 Test Item Value Reference Range Interpretation Comments MCH (test code = MCH) 27.9 pg 27.0-31.0 [facility] CenterDhvizjmJTRAQZIDSQ7502-89-03 07:07:00 Test Item Value Reference Range Interpretation Comments Hgb (test code = Hgb) 14.8 14.0-18.0 [facility] CenterSxsvucbLYXIGCHYNE7190-67-36 07:07:00 Test Item Value Reference Range Interpretation Comments MCV (test code = MCV) 85.0 80.0-94.0 [facility] CenterKywrkszBKOCVOPMLP6752-23-64 07:07:00 Test Item Value Reference Range Interpretation Comments Hct (test code = Hct) 45.1 42.0-54.0 [facility] CenterKjxnxtkOMBLSQJQHC0373-07-52 07:07:00 Test Item Value Reference Range Interpretation Comments RDW (test code = RDW) 17.5 11.5-14.5 [facility] CenterEjymhonJZONRWJFEQ1363-35-50 07:07:00 Test Item Value Reference Range Interpretation Comments Eosinophils # (test code 0.2 See_Comment [A utomated message] The = Eosinophils #) system whic h generated this result tra nsmitted reference range : <=0.5. The reference r boubacar was not used to int erpret this result as normal/abnormal . [facility] CenterHuhawkdVLMZAESXPD9707-70-14 07:07:00 Test Item Value Reference Range Interpretation Comments Lymphocytes # (test code = Lymphocytes 2.0 1.0-5.5 #) [facility] CenterLgdmhqoQYXFZYWLXF5553-60-57 07:07:00 Test Item Value Reference Range Interpretation Comments Monocytes # (test code 0.7 See_Comment [Aut omated message] The = Monocytes #) system which generated this result tra nsmitted reference range : <=0.8. The reference r boubacar was not used to int erpret this result as normal/abnormal . [facility] CenterDbbtgvkTSIEQJTAGT4600-82-11 07:07:00 Test Item Value Reference Range Interpretation Comments Eosinophils (test code = 2.4 See_Comment [A utomated message] The Eosinophils) system which ge nerated this result tra nsmitted reference range : <=4.0. The reference r boubacar was not used to int erpret this result as normal/abnormal . [facility] CenterOcikcyaHOHWBKMQLY8596-85-50 07:07:00 Test Item Value Reference Range Interpretation Comments Basophils (test code = 0.6 See_Comment [Aut omated message] The Basophils) system which ge nerated this result tra nsmitted reference range : <=1.0. The reference r boubacar was not used to int erpret this result as normal/abnormal . [facility] CenterXdgvntdREMYOSDYJJ6969-46-21 07:07:00 Test Item Value Reference Range Interpretation Comments Segs-Bands # (test code = Segs-Bands #) 4.0 1.5-8.1 [facility] CenterAxhbyyqSIYKIMPBHG5494-09-27 07:07:00 Test Item Value Reference Range Interpretation Comments Monocytes (test code = Monocytes) 10.4 2.0-12.0 [facility] CenterYjxlzjjZINMTFQFQT8752-66-99 07:07:00 Test Item Value Reference Range Interpretation Comments RBC Morph (test code = Normal (11/17/17 2:07 AM) RBC Morph) [facility] CenterFfjbolaWYUBAVTZIV7771-85-26 07:07:00 Test Item Value Reference Range Interpretation Comments Segs (test code = Segs) 58.1 45.0-75.0 [facility] CenterXpouiocSBTDEAQVSF0455-82-16 07:07:00 Test Item Value Reference Range Interpretation Comments Plt Morph (test code = Normal (11/17/17 2:07 AM) Plt Morph) [facility] CenterFeailmzIFNDFRXDBG7053-22-12 07:07:00 Test Item Value Reference Range Interpretation Comments Lymphocytes (test code = Lymphocytes) 28.5 20.0-40.0 [facility] CenterNrklbusKYQSOJNCKU2886-46-50 16:07:00 Test Item Value Reference Range Interpretation Comments Basophils # (test code 0.1 See_Comment [Aut omated message] The = Basophils #) system which generated this result tra nsmitted reference range : <=0.2. The reference r boubacar was not used to int erpret this result as normal/abnormal . [facility] CenterTcvklqvVDUUEJAPKK3844-68-34 16:07:00 Test Item Value Reference Range Interpretation Comments Polychrom (test code = Moderate *ABN*(11/16/17 Polychrom) 11:07 AM) [facility] CenterAylclzpLYRZCTYFBR7234-11-60 16:07:00 Test Item Value Reference Range Interpretation Comments Basophils # (test code 0.1 See_Comment [Aut omated message] The = Basophils #) system which generated this result tra nsmitted reference range : <=0.2. The reference r boubacar was not used to int erpret this result as normal/abnormal . [facility] CenterBgwfjlhLZNXZKZLKC0353-80-76 16:07:00 Test Item Value Reference Range Interpretation Comments Polychrom (test code = Moderate *ABN*(11/16/17 Polychrom) 11:07 AM) [facility]PvlxthzUFMFXTIITP6128-35-91 06:43:00 Test Item Value Reference Range Interpretation Comments Vanco Tr TND (test code = Vanco Tr TND) * [facility]UbhftmuXQGBUTAIBN0928-60-03 06:43:00 Test Item Value Reference Range Interpretation Comments Vanco Tr (test code = Vanco Tr) 22.3 [facility]villeHymvvvyOYDAJUTPSG5074-09-08 06:43:00 Test Item Value Reference Range Interpretation Comments Vanco Tr TND (test code = Vanco Tr TND) * [facility]villeOhzleabVJUPQCZIWA3915-49-32 06:43:00 Test Item Value Reference Range Interpretation Comments Vanco Tr (test code = Vanco Tr) 22.3 [facility]2018-05-04 11:45:00 Test Item Value Reference Range Interpretation Comments Magnesium Lvl (test code = Magnesium 2.3 1.8-2.4 Lvl) [facility] CKHII5554-44-37 11:45:00 Test Item Value Reference Range Interpretation Comments Phosphorus (test code = Phosphorus) 3.5 2.5-4.5 [facility] CenterTwbydkcZCZROQUOND5691-68-14 11:45:00 Test Item Value Reference Range Interpretation Comments PT (test code = PT) 14.0 s 12.0-14.7 [facility] CenterGlsbpfpYXAWYWVUTI2657-55-79 11:45:00 Test Item Value Reference Range Interpretation Comments PTT (test code = PTT) 37.6 s 22.9-35.8 [facility] CenterClkxhrsBVPUSPUZHI7057-19-34 11:45:00 Test Item Value Reference Range Interpretation Comments INR (test code = INR) 1.08 1 0.85-1.17 [place] [address]-05-04 11:45:00 Test Item Value Reference Range Interpretation Comments C-REACTIVE PROTEIN (test code = 13.1 C-REACTIVE PROTEIN) [facility]TmxeurwDJFJZPPUKX9402-03-40 11:45:00 Test Item Value Reference Range Interpretation Comments Prealbumin (test code = Prealbumin) 25.2 18.0-45.0 [facility]2018-05-04 11:45:00 Test Item Value Reference Range Interpretation Comments Magnesium Lvl (test code = Magnesium 2.3 1.8-2.4 Lvl) [facility]2018-05-04 11:45:00 Test Item Value Reference Range Interpretation Comments Phosphorus (test code = Phosphorus) 3.5 2.5-4.5 [facility] CenterAlfkrnhNMTREOKGRO7390-64-38 11:45:00 Test Item Value Reference Range Interpretation Comments PT (test code = PT) 14.0 s 12.0-14.7 [facility] CenterCxcepgnLRPZSRCBYY8736-64-24 11:45:00 Test Item Value Reference Range Interpretation Comments PTT (test code = PTT) 37.6 s 22.9-35.8 [place] 744708-05-04 11:45:00 Test Item Value Reference Range Interpretation Comments INR (test code = INR) 1.08 1 0.85-1.17 [place] 534508-05-04 11:45:00 Test Item Value Reference Range Interpretation Comments C-REACTIVE PROTEIN (test code = 13.1 C-REACTIVE PROTEIN) [facility] CenterLsuvkskNZLXVSLLBK0085-75-97 11:45:00 Test Item Value Reference Range Interpretation Comments Prealbumin (test code = Prealbumin) 25.2 18.0-45.0 [facility]2018-05-04 03:06:00 Test Item Value Reference Range Interpretation Comments Lactic Acid Lvl (test code = Lactic 0.9 0.5-2.2 Acid Lvl) [facility] CenterIlcmiclWNSZCBGGUE4480-90-63 03:06:00 Test Item Value Reference Range Interpretation Comments Sed Rate (test code = 5 See_Comment [Auto mated message] The Sed Rate) system which ge nerated this result transmit lester reference range : <=15. The reference range was not used to interpr et this result as dany l/abnormal. [place] [address]-05-04 03:06:00 Test Item Value Reference Range Interpretation Comments C-REACTIVE PROTEIN (test code = 15.8 C-REACTIVE PROTEIN) [facility]2018-05-04 03:06:00 Test Item Value Reference Range Interpretation Comments Lactic Acid Lvl (test code = Lactic 0.9 0.5-2.2 Acid Lvl) [facility] CenterLbibllpRHRHRJNGHE5324-87-04 03:06:00 Test Item Value Reference Range Interpretation Comments Sed Rate (test code = 5 See_Comment [Auto mated message] The Sed Rate) system which ge nerated this result transmit lester reference range : <=15. The reference range was not used to interpr et this result as dany l/abnormal. [place] [address]-05-04 03:06:00 Test Item Value Reference Range Interpretation Comments C-REACTIVE PROTEIN (test code = 15.8 C-REACTIVE PROTEIN) [facility] CenterYdrlnbpTCCEYNJWKZ2468-64-52 00:44:00 Test Item Value Reference Range Interpretation Comments PT (test code = PT) 13.0 s 12.0-14.7 [facility] CenterHizdnesMKYPCWGVYA7410-09-16 00:44:00 Test Item Value Reference Range Interpretation Comments INR (test code = INR) 0.98 1 0.85-1.17 [facility] CenterFgbfvwwUYEXRSGIFR8845-35-18 00:44:00 Test Item Value Reference Range Interpretation Comments PTT (test code = PTT) 33.2 s 22.9-35.8 [facility] CenterKywulchQCFFRACKXS5421-97-85 00:44:00 Test Item Value Reference Range Interpretation Comments PT (test code = PT) 13.0 s 12.0-14.7 [facility] CenterUkxepwbKCKMZYBHJB3599-88-42 00:44:00 Test Item Value Reference Range Interpretation Comments INR (test code = INR) 0.98 1 0.85-1.17 [facility] CenterBanpwrsAWWHBAYZSY5999-29-66 00:44:00 Test Item Value Reference Range Interpretation Comments PTT (test code = PTT) 33.2 s 22.9-35.8 [facility] GSOPPJJ3470-84-11 23:51:00 Test Item Value Reference Range Interpretation Comments Antibody Scrn (test Negative (11/14/17 6:51 code = Antibody Scrn) PM) [facility] UNMDBQL1130-45-84 23:51:00 Test Item Value Reference Range Interpretation Comments ABO/Rh (test code = ABO/Rh) AB POS [facility] GYCIKKR1516-67-57 23:51:00 Test Item Value Reference Range Interpretation Comments Antibody Scrn (test Negative (11/14/17 6:51 code = Antibody Scrn) PM) [facility] NPMDSRD2069-64-26 23:51:00 Test Item Value Reference Range Interpretation Comments ABO/Rh (test code = ABO/Rh) AB POS [facility] AND [id number] 23:35:00 Test Item Value Reference Range Interpretation Comments UA Urobilinogen (test code = UA 0.2 0.1-1.0 Urobilinogen) [facility] AND [id number] 23:35:00 Test Item Value Reference Range Interpretation Comments UA Nitrite (test code Negative (11/14/17 6:35 = UA Nitrite) PM) [facility] AND HAGXT7528-01-61 23:35:00 Test Item Value Reference Range Interpretation Comments UA Glucose (test code Negative (11/14/17 6:35 = UA Glucose) PM) [facility] AND [id number] 23:35:00 Test Item Value Reference Range Interpretation Comments UA Ketones (test code Negative *NA*(11/14/17 = UA Ketones) 6:35 PM) [facility] AND [id number] 23:35:00 Test Item Value Reference Range Interpretation Comments UA Bili (test code = Negative *NA*(11/14/17 UA Bili) 6:35 PM) [facility] AND [id number] 23:35:00 Test Item Value Reference Range Interpretation Comments UA Blood (test code = Trace *ABN*(11/14/17 UA Blood) 6:35 PM) [facility] AND [id number] 23:35:00 Test Item Value Reference Range Interpretation Comments UA Leuk Est (test code Small *ABN*(11/14/17 6:35 = UA Leuk Est) PM) [facility] AND [id number] 23:35:00 Test Item Value Reference Range Interpretation Comments UA Spec Grav (test code = UA Spec 1.020 1 Grav) [facility] AND [id number] 23:35:00 Test Item Value Reference Range Interpretation Comments UA pH (test code = UA pH) 6.0 1 5.0-8.0 [facility] AND [id number] 23:35:00 Test Item Value Reference Range Interpretation Comments UA Color (test code = Yellow *NA*(11/14/17 6:35 UA Color) PM) [facility] AND [id number] 23:35:00 Test Item Value Reference Range Interpretation Comments UA Protein (test code = Trace *ABN*(11/14/17 UA Protein) 6:35 PM) [facility] AND [id number] 23:35:00 Test Item Value Reference Range Interpretation Comments UA Turbidity (test code Slight Cloudy (11/14/17 = UA Turbidity) 6:35 PM) [facility] AND [id number] 23:35:00 Test Item Value Reference Range Interpretation Comments UA Hyal Cast 0-2 (11/14/17 6:35 See_Comment [Automated message] (test code = UA PM) The system w [facility] Hyal Cast) generated this result transmitted ref erence range: <=2. The reference range was not used to int erpret this result as normal/abnormal . [facility] AND [id number] 23:35:00 Test Item Value Reference Range Interpretation Comments UA Bacteria (test code = UA Occasional /HPF Bacteria) [facility] AND [id number] 23:35:00 Test Item Value Reference Range Interpretation Comments UA RBC (test code 11-20 /HPF See_Comment [Automate d message] The = UA RBC) system which ge nerated this result tra nsmitted reference range : <=2. The reference range was not used to interpr et this result as normal/abnormal . [facility] AND [id number] 23:35:00 Test Item Value Reference Range Interpretation Comments UA Sq Epi (test code = UA Sq Occasional /LPF Epi) [facility] AND [id number] 23:35:00 Test Item Value Reference Range Interpretation Comments UA WBC (test code = UA WBC) 51-100 /HPF [facility] AND [id number] 23:35:00 Test Item Value Reference Range Interpretation Comments UA Urobilinogen (test code = UA 0.2 0.1-1.0 Urobilinogen) [facility] AND [id number] 23:35:00 Test Item Value Reference Range Interpretation Comments UA Nitrite (test code Negative (11/14/17 6:35 = UA Nitrite) PM) [facility] AND [id number] 23:35:00 Test Item Value Reference Range Interpretation Comments UA Glucose (test code Negative (11/14/17 6:35 = UA Glucose) PM) [facility] AND [id number] 23:35:00 Test Item Value Reference Range Interpretation Comments UA Ketones (test code Negative *NA*(11/14/17 = UA Ketones) 6:35 PM) [facility] AND [id number] 23:35:00 Test Item Value Reference Range Interpretation Comments UA Bili (test code = Negative *NA*(11/14/17 UA Bili) 6:35 PM) [facility] AND [id number] 23:35:00 Test Item Value Reference Range Interpretation Comments UA Blood (test code = Trace *ABN*(11/14/17 UA Blood) 6:35 PM) [facility] AND [id number] 23:35:00 Test Item Value Reference Range Interpretation Comments UA Leuk Est (test code Small *ABN*(11/14/17 6:35 = UA Leuk Est) PM) [facility] AND [id number] 23:35:00 Test Item Value Reference Range Interpretation Comments UA Spec Grav (test code = UA Spec 1.020 1 Grav) [facility] AND [id number] 23:35:00 Test Item Value Reference Range Interpretation Comments UA pH (test code = UA pH) 6.0 1 5.0-8.0 [facility] AND [id number] 23:35:00 Test Item Value Reference Range Interpretation Comments UA Color (test code = Yellow *NA*(11/14/17 6:35 UA Color) PM) [facility] AND [id number] 23:35:00 Test Item Value Reference Range Interpretation Comments UA Protein (test code = Trace *ABN*(11/14/17 UA Protein) 6:35 PM) [facility] AND [id number] 23:35:00 Test Item Value Reference Range Interpretation Comments UA Turbidity (test code Slight Cloudy (11/14/17 = UA Turbidity) 6:35 PM) [facility] AND [id number] 23:35:00 Test Item Value Reference Range Interpretation Comments UA Hyal Cast 0-2 (11/14/17 6:35 See_Comment [Automated message] (test code = UA PM) The system w [facility] Hyal Cast) generated this result transmitted ref erence range: <=2. The reference range was not used to int erpret this result as normal/abnormal . [facility] AND [id number] 23:35:00 Test Item Value Reference Range Interpretation Comments UA Bacteria (test code = UA Occasional /HPF Bacteria) [facility] AND [id number] 23:35:00 Test Item Value Reference Range Interpretation Comments UA RBC (test code 11-20 /HPF See_Comment [Automate d message] The = UA RBC) system which ge nerated this result tra nsmitted reference range : <=2. The reference range was not used to interpr et this result as normal/abnormal . [facility] AND [id number] 23:35:00 Test Item Value Reference Range Interpretation Comments UA Sq Epi (test code = UA Sq Occasional /LPF Epi) [facility] AND [id number] 23:35:00 Test Item Value Reference Range Interpretation Comments UA WBC (test code = UA WBC) 51-100 /HPF [id number] 23:20:00 Test Item Value Reference Range Interpretation Comments Basophils # (test code 0.1 See_Comment [Aut omated message] The = Basophils #) system which generated this result tra nsmitted reference range : <=0.2. The reference r boubacar was not used to int erpret this result as normal/abnormal . [id number] 23:20:00 Test Item Value Reference Range Interpretation Comments Polychrom (test code = Polychrom) Slight [facility] [id number] 23:20:00 Test Item Value Reference Range Interpretation Comments Plt Morph (test code = Normal (11/14/17 6:20 PM) Plt Morph) [facility] [id number] 23:20:00 Test Item Value Reference Range Interpretation Comments Basophils # (test code 0.1 See_Comment [Aut omated message] The = Basophils #) system which generated this result tra nsmitted reference range : <=0.2. The reference r boubacar was not used to int erpret this result as normal/abnormal . [facility] [id number] 23:20:00 Test Item Value Reference Range Interpretation Comments Polychrom (test code = Polychrom) Slight [facility] [id number] 23:20:00 Test Item Value Reference Range Interpretation Comments Plt Morph (test code = Normal (11/14/17 6:20 PM) Plt Morph) [facility] [id number] 16:22:00 Test Item Value Reference Range Interpretation Comments CULTURE (BEAKER) (test No growth in 5 days code = 1095) BLOOD [id number] 16:22:00 Test Item Value Reference Range Interpretation [...] Normal 762) CBC W/PLT COUNT & AUTO [id number] 22:28:00 Test Item Value Reference Range Interpretation [...] 0.00-0.20 (test code = 417) [id number] METABOLIC [id number] 11:11:00 Test Item Value Reference Range Interpretation [...] NOT APPLICABLE FOR DIALYSIS PATIEN TS. URINE [id number] 09:56:00 Test Item Value Reference Range Interpretation Comments CULTURE (BEAKER) (test <10,000 col/mL skin code = 1095) marilee COMPREHENSIVE METABOLIC [id number] 08:49:00 Test Item Value Reference Range Interpretation [...] PATIEN TS. CBC W/PLT COUNT & AUTO [id number] 08:46:00 Test Item Value Reference Range Interpretation [...] 0.00-0.20 (test code = 417) 0.00URINALYSIS W/ [id number] 20:36:00 Test Item Value Reference Range Interpretation [...] 520) 182 /HPF SOURCE(BEAKER) (test code = 0006) BASIC METABOLIC [id number] 17:00:00 Test Item Value Reference Range Interpretation [...] Specimen slightly ictericCBC W/PLT COUNT & AUTO [id number] 12:18:00 Test Item Value Reference Range Interpretation [...]
[2022-06-08] MEDS ORDERED: HYDROMORPHONE HCL 1 MG/ML INJ ONE (16:48)
[2022-06-08] MEDS ORDERED: NA CHLORIDE 0.9% 500 ML ONE ×2 (16:48→20:29)
[2022-06-08] MEDS ORDERED: NA CHLORIDE 0.9% 1,000 ML ONE ×2 (16:48→20:29)
[2022-06-08] MEDS ORDERED: PROMETHAZINE INJ 25 MG/ML AMP ONE (16:48)
[2022-06-08] MEDS ORDERED: FAMOTIDINE 20 MG/2 ML VIAL IV ONE (16:48)
[2022-06-08 17:30] LABS: Urine Bacteria 20-50 /HPF (<20); Urine Mucus 1+ /HPF (None Seen); Urine RBC 21-50 /HPF (None Seen); Urine WBC Clump Few /HPF (None Seen)
[2022-06-08 18:21] LABS: Albumin 3.7 g/dL (3.4-5.0); Bilirubin Total 0.5 mg/dL (0.2-1.0); Potassium 4.8 mmol/L (3.5-5.1); Protein, Total 9.1 g/dL (6.4-8.2)
[2022-06-08 18:37] LABS: Absolute Lymphocytes (CBC) 2.6 K/uL (0.7-4.9); Hematocrit 52.7 % (39.6-49.0); Lymphocytes % 18.9 % (15.3-44.8); MCV 84.8 fL (80-100); MPV 7.9 fL (7.6-11.3); RBC Red Blood Cell Count 6.21 M/uL (4.33-5.43)
--- NOTE | 2022-06-08 18:49 | ER ---
Nurse's Notes [facility] Name: Roland Feldman Jr Age: 37 yrs Sex: Male : 1985 Arrival Date: 06/08/2022 Time: 14:18 Bed 20 Private MD: Diagnosis: Acute cystitis-suprapubic catherter;Elevated white blood cell count;Cerebral palsy, unspecified;Obesity, unspecified Presentation: 06/08 14:26 Chief complaint: EMS states: Upper abdominal pain and N/V x 3 days. Coronavirus screen: hb At this time, the client does not indicate any symptoms associated with coronavirus-19. Ebola Screen: No symptoms or risks identified at this time. Risk Assessment: Do you want to hurt yourself or someone else? Patient reports no desire to harm self or others. 14:26 Method Of Arrival: EMS: [facility] hb 14:27 Initial Sepsis Screen: Does the patient meet any 2 criteria? No. Patient's initial hb sepsis screen is negative. Does the patient have a suspected source of infection? No. Patient's initial sepsis screen is negative. Onset of symptoms was June 05, 2022. 14:27 Acuity: YUKI 3 hb Historical: - Allergies: 14:27 Amoxicillin; hb 14:27 Bactrim; hb 14:27 Ciprofloxacin; hb 14:27 CLAVULANIC ACID; hb 14:27 Demerol; hb 14:27 Doxycycline; hb 14:27 Levofloxacin; hb 14:27 Morphine; hb 14:27 PENICILLINS; hb 14:27 Toradol; hb 14:27 TRIMETHOPRIM; hb 14:27 Vancomycin; hb 14:27 Zofran; hb - PMHx: 17:51 Asthma; Cerebral Palsy; cluster headaches; decubitus ulcers on feet; GERD; ss Hydrocephalus; Hypertension; spina bifida; - Immunization history:: Adult Immunizations unknown. - Family history:: not pertinent. - Social history:: Smoking status: Patient denies any tobacco usage or history of. Screenin:55 Abuse screen: Denies threats or abuse. Denies injuries from another. Nutritional ko1 screening: No deficits noted. Tuberculosis screening: No symptoms or risk factors identified. Fall Risk None identified. Assessment: 18:10 General: Appears in no apparent distress. uncomfortable, Behavior is calm, cooperative, ko1 appropriate for age. Pain: Complains of pain in back and left leg and left calf and left upper quadrant and right upper quadrant and epigastric area. Neuro: No deficits noted. Cardiovascular: No deficits noted. Respiratory: No deficits noted. GI: Reports lower abdominal pain, nausea. : to gravity drainage Urine is cloudy. EENT: No deficits noted. Derm: Wound noted right foot and left foot and left calf Reports pain. Musculoskeletal: No deficits noted. 19:10 Reassessment: pt. transferred by stretcher. with tech and nurse. report given to rangel Espinal RN. General: Appears uncomfortable, Behavior is calm, cooperative. Pain: Complains of pain in left foot Pain does not radiate. Pain currently is 4 out of 10 on a pain scale. at worst was 9 out of 10 on a pain scale. Alleviated by medications. Neuro: Level of Consciousness is awake, alert, obeys commands, Oriented to person, place, time, situation. Cardiovascular: Capillary refill < 3 seconds fingers Patient's skin is warm and dry. Respiratory: Airway is patent Trachea midline Respiratory effort is even, unlabored, Respiratory pattern is regular, symmetrical. GI: No signs and/or symptoms were reported involving the gastrointestinal system. Abdomen is non-distended, obese. : Urine is cloudy. Derm: Wound noted right foot and left foot. Musculoskeletal: Range of motion: limited in lower extremities. Vital Signs: 14:26 BP 144 / 88; Pulse 68; Resp 16; Temp 97.4; Pulse Ox 100% on R/A; Pain 8/10; hb 15:55 BP 125 / 109; Pulse 72; Resp 18; Pulse Ox 99% on R/A; ko1 17:00 BP 139 / 106; Pulse 85; ko1 18:00 BP 139 / 102; Pulse 78; Pulse Ox 98% ; ko1 19:00 BP 129 / 89; Pulse 91; Resp 20 S; Pulse Ox 98% on R/A; ha1 ED Course: 14:18 Patient arrived in ED. jj6 14:27 Triage completed. hb 15:47 Megan Watkins, RN is Primary Nurse. ko1 15:55 Patient has correct armband on for positive identification. Bed in low position. Call ko1 light in reach. Side rails up X 1. Client placed on continuous cardiac and pulse oximetry monitoring. NIBP monitoring applied. high lift mule operator on. 15:59 Clifton Quezada MD is Attending Physician. scott 17:05 Urine Microscopic Only Sent. ko1 17:52 Missed attempt(s): 22 gauge in left upper arm. Bleeding controlled, band aid applied, ss catheter tip intact. 17:52 Missed attempt(s): 22 gauge in right forearm. Bleeding controlled, band aid applied, ss catheter tip intact. 18:34 Inserted saline lock: 22 gauge in right forearm, using aseptic technique. ,using ss aseptic technique. Insertion VIA US guided Blood collected. 18:47 Eduar Akers MD is Hospitalizing Provider. scott 19:04 CT Abd/Pelvis - Without Contrast In Process Unspecified. EDMS 19:35 Chest Single View XRAY In Process Unspecified. EDMS 19:52 Eren Varela MD is Hospitalizing Provider. 20:00 Arm band placed on. ha1 21:00 No provider procedures requiring assistance completed. Patient admitted, IV remains in ha1 place. 06/09 05:26 SARS RAPID Sent. ha1 Administered Medications: 06/08 18:39 Drug: Pepcid (famotidine) 20 mg Route: IVP; Site: right forearm; ko1 18:39 Drug: Dilaudid (HYDROmorphone) 1 mg Route: IVP; Site: right forearm; ko1 19:10 Follow up: Response: No adverse reaction; Pain is decreased; RASS: Alert and Calm (0) ha1 18:39 Drug: Phenergan (promethazine) 25 mg Route: IVP; Site: right forearm; ko1 18:39 Drug: NS 0.9% 500 ml Route: IV; Rate: bolus; Site: right forearm; ko1 20:14 Drug: NS 0.9% 1000 ml Route: IV; Rate: 1 bolus; Site: right forearm; ha1 06/09 03:50 Follow up: Response: No adverse reaction; IV Status: Completed infusion; IV Intake: ha1 1000ml 06/08 20:14 Drug: NS 0.9% 500 ml Route: IV; Rate: bolus; Site: right forearm; ha1 23:50 Follow up: Response: No adverse reaction; IV Status: Completed infusion; IV Intake: ha1 500ml 22:00 Drug: Meropenem 1 grams Route: IV; Rate: per protocol; Site: left forearm; ha1 06/09 04:15 Not Given (Duplicate Order): NS 0.9% 1000 ml IV at 125 ml/hr continuous ha1 Medication: 06/08 15:55 VIS not applicable for this client. ko1 Intake: 23:50 IV: 500ml; Total: 500ml. ha1 06/09 03:50 IV: 1000ml; Total: 1500ml. ha1 Outcome: 06/08 18:48 Decision to Hospitalize by Provider. [facility] 21:00 Admitted to ER Hold. Please see [facility] for further documentation. ha1 21:00 Condition: stable 21:00 Instructed on the need for admit. 06/09 06:15 Patient left the ED. [facility] Signatures: Dispatcher [employer] EDMS Clifton Quezada MD MD cha Smirch, Shelby RN Clifton Morocho PA PA cp Baxter, Heather, RN RN hb Jeffries, Jennifer jj6 Karine Zapien RN RN [facility] Megan Watkins RN RN ko Corrections: (The following items were deleted from the chart) 06:13 Reassessment: pt. transferred by stretcher. with tech and nurse. report given to [facility] NAIF Espinal. [facility] : 06:53 General: Appears uncomfortable, Behavior is calm, cooperative, [place] [id number] 07: 06:53 Pain: Complains of pain in left foot Pain does not radiate. Pain currently is 4 ha1 out of 10 on a pain scale. at worst was 9 out of 10 on a pain scale. Alleviated by medications, [facility] : 06:53 Neuro: Level of Consciousness is awake, alert, obeys commands, Oriented to 1 person, place, time, situation, [facility] : 06:53 Cardiovascular: Capillary refill < 3 seconds fingers Patient's skin is warm and ha1 dry. ha1 : 06:53 Respiratory: Airway is patent Trachea midline Respiratory effort is even, ha1 unlabored, Respiratory pattern is regular, symmetrical, [facility] : 06:53 GI: No signs and/or symptoms were reported involving the gastrointestinal system. ha1 Abdomen is non-distended, obese, ha1 : 06:53 : ha1 [facility] : 06:53 : Urine is cloudy, ha1 ha1 07:15 06:53 Derm: Wound noted right foot and left foot ha1 ha1 07:15 06:53 Musculoskeletal: Range of motion: ha1 ha1
--- NOTE | 2022-06-08 18:50 | EDPHYS ---
Physician Documentation [facility] Name: Roland Feldman Jr Age: 37 yrs Sex: Male : 1985 Arrival Date: 06/08/2022 Time: 14:18 Bed 20 Private MD: ED Physician Clifton Quezada HPI: 06/08 17:18 This 37 yrs old Black Male presents to ER via EMS with complaints of Low Back Pain. scott 17:18 The patient presents with pain that is acute, with no known mechanism of injury, that scott is chronic. The symptoms are located in the low back. The pain does not radiate. The problem was sustained from unknown cause. Modifying factors: The patient symptoms are alleviated by nothing, the patient symptoms are aggravated by nothing. Associated signs and symptoms: Pertinent positives: abdominal pain. Severity of symptoms: At their worst the symptoms were mild, moderate, in the emergency department the symptoms are unchanged. The patient has experienced similar episodes in the past. Historical: - Allergies: 14:27 Amoxicillin; hb 14:27 Bactrim; hb 14:27 Ciprofloxacin; hb 14:27 CLAVULANIC ACID; hb 14:27 Demerol; hb 14:27 Doxycycline; hb 14:27 Levofloxacin; hb 14:27 Morphine; hb 14:27 PENICILLINS; hb 14:27 Toradol; hb 14:27 TRIMETHOPRIM; hb 14:27 Vancomycin; hb 14:27 Zofran; hb - PMHx: 17:51 Asthma; Cerebral Palsy; cluster headaches; decubitus ulcers on feet; GERD; ss Hydrocephalus; Hypertension; spina bifida; - Immunization history:: Adult Immunizations unknown. - Family history:: not pertinent. - Social history:: Smoking status: Patient denies any tobacco usage or history of. ROS: 17:18 Constitutional: Negative for fever, chills, and weight loss, Eyes: Negative for injury, scott pain, redness, and discharge, ENT: Negative for injury, pain, and discharge, Neck: Negative for injury, pain, and swelling, Cardiovascular: Negative for chest pain, palpitations, and edema, Respiratory: Negative for shortness of breath, cough, wheezing, and pleuritic chest pain, : Negative for injury, bleeding, discharge, and swelling, Skin: Negative for injury, rash, and discoloration, Neuro: Negative for headache, weakness, numbness, tingling, and seizure, Psych: Negative for depression, anxiety, suicide ideation, homicidal ideation, and hallucinations, Allergy/Immunology: Negative for hives, rash, and allergies, Endocrine: Negative for neck swelling, polydipsia, polyuria, polyphagia, and marked weight changes, Hematologic/Lymphatic: Negative for swollen nodes, abnormal bleeding, and unusual bruising. 17:18 Abdomen/GI: Positive for abdominal pain, of the epigastric area, right upper quadrant and left upper quadrant. 17:18 MS/extremity: Positive for laceration, tenderness, of the left calf. Exam: 17:18 Constitutional: This is a well developed, well nourished patient who is awake, alert, scott and in no acute distress. Head/Face: Normocephalic, atraumatic. Eyes: Pupils equal round and reactive to light, extra-ocular motions intact. Lids and lashes normal. Conjunctiva and sclera are non-icteric and not injected. Cornea within normal limits. Periorbital areas with no swelling, redness, or edema. ENT: Nares patent. No nasal discharge, no septal abnormalities noted. Tympanic membranes are normal and external auditory canals are clear. Oropharynx with no redness, swelling, or masses, exudates, or evidence of obstruction, uvula midline. Mucous membranes moist. Neck: Trachea midline, no thyromegaly or masses palpated, and no cervical lymphadenopathy. Supple, full range of motion without nuchal rigidity, or vertebral point tenderness. No Meningismus. Chest/axilla: Normal chest wall appearance and motion. Nontender with no deformity. No lesions are appreciated. Cardiovascular: Regular rate and rhythm with a normal S1 and S2. No gallops, murmurs, or rubs. Normal PMI, no JVD. No pulse deficits. Respiratory: Lungs have equal breath sounds bilaterally, clear to auscultation and percussion. No rales, rhonchi or wheezes noted. No increased work of breathing, no retractions or nasal flaring. Back: No spinal tenderness. No costovertebral tenderness. Full range of motion. Male : Normal genitalia with no discharge or lesions. Skin: Warm, dry with normal turgor. Normal color with no rashes, no lesions, and no evidence of cellulitis. Neuro: Awake and alert, GCS 15, oriented to person, place, time, and situation. Cranial nerves II-XII grossly intact. Motor strength 5/5 in all extremities. Sensory grossly intact. Cerebellar exam normal. Normal gait. Psych: Awake, alert, with orientation to person, place and time. Behavior, mood, and affect are within normal limits. 17:18 Abdomen/GI: Inspection: abdomen appears normal, distension, that is mild, Bowel sounds: active, all quadrants, Palpation: mild abdominal tenderness, in the epigastric area, right upper quadrant and left upper quadrant, Liver: no appreciated palpable abnormalities, Hernia: not appreciated. Vital Signs: 14:26 BP 144 / 88; Pulse 68; Resp 16; Temp 97.4; Pulse Ox 100% on R/A; Pain 8/10; hb 15:55 BP 125 / 109; Pulse 72; Resp 18; Pulse Ox 99% on R/A; ko1 17:00 BP 139 / 106; Pulse 85; ko1 18:00 BP 139 / 102; Pulse 78; Pulse Ox 98% ; ko1 19:00 BP 129 / 89; Pulse 91; Resp 20 S; Pulse Ox 98% on R/A; ha1 MDM: 15:59 Patient medically screened. [facility] 17:22 Differential diagnosis: arthritis, strain, sciatica, UTI. Data reviewed: vital signs, [facility] nurses notes, lab test result(s), radiologic studies, CT scan. Data interpreted: correctional officer: rate is 72 beats/min, rhythm is regular, Pulse oximetry: on room air is 99 %. Counseling: I had a detailed discussion with the patient and/or guardian regarding: the historical points, exam findings, and any diagnostic results supporting the discharge/admit diagnosis, the presence of at least one elevated blood pressure reading (>120/80) during this emergency department visit, lab results, radiology results. 06/08 16:30 Order name: CBC with Diff; Complete Time: 18:43 [facility] 06/08 19:46 Interpretation: Normal except: WBC 13.90; RBC 6.21; HCT 52.7; PLT 513; RDW 16.9; NEUT A cp 10.1. 06/08 16:30 Order name: CMP; Complete Time: 18:35 [facility] 06/08 16:30 Order name: Lipase; Complete Time: 18:35 [facility] 06/08 16:30 Order name: Urine Microscopic Only; Complete Time: 17:37 [facility] 06/08 19:46 Interpretation: Normal except: UWBC >50; URBC 21-50; UBACT 20-50; UWBC Clump Few. 06/08 16:55 Order name: Lactate w/ 2H reflex if indic.; Complete Time: 18:46 [facility] 06/08 19:46 Interpretation: Abnormal: LAC 2.2. 06/08 17:36 Order name: Urine Culture [facility] 06/08 18:43 Order name: Blood Culture Adult (2) [facility] 06/08 19:58 Order name: Basic Metabolic Panel [facility] 06/08 19:58 Order name: Basic Metabolic Panel [facility] 06/08 19:58 Order name: CBC with Automated Diff [facility] 06/08 19:58 Order name: CBC with Automated Diff [facility] 06/08 22:14 Order name: Lactate Sepsis 2 HR Follow-up [facility] 06/09 05:11 Order name: SARS RAPID [facility] 06/09 05:44 Order name: SARS-COV-2 Antigen Rapid [facility] 06/08 16:30 Order name: CT Abd/Pelvis - Without Contrast; Complete Time: 19:45 [facility] 06/08 16:30 Order name: IV Saline Lock; Complete Time: 18:34 [facility] 06/08 16:30 Order name: Labs collected and sent; Complete Time: 18:34 [facility] 06/08 16:30 Order name: Urine Dipstick-Ancillary (obtain specimen); Complete Time: 18:34 [facility] 06/08 16:30 Order name: Wound dressing: LEFT POSTERIOR CALF; Complete Time: 05:31 [facility] 06/08 18:03 Order name: Labs - recollect needed: please recollect the CBC; Complete Time: 18:34 [facility] 06/08 18:43 Order name: Chest Single View XRAY; Complete Time: 19:50 [facility] 06/08 19:58 Order name: Regular EDMS Administered Medications: 18:39 Drug: Pepcid (famotidine) 20 mg Route: IVP; Site: right forearm; ko1 18:39 Drug: Dilaudid (HYDROmorphone) 1 mg Route: IVP; Site: right forearm; ko1 19:10 Follow up: Response: No adverse reaction; Pain is decreased; RASS: Alert and Calm (0) [facility] 18:39 Drug: Phenergan (promethazine) 25 mg Route: IVP; Site: right forearm; ko1 18:39 Drug: NS 0.9% 500 ml Route: IV; Rate: bolus; Site: right forearm; ko1 20:14 Drug: NS 0.9% 1000 ml Route: IV; Rate: 1 bolus; Site: right forearm; ha1 06/09 03:50 Follow up: Response: No adverse reaction; IV Status: Completed infusion; IV Intake: ha1 1000ml 06/08 20:14 Drug: NS 0.9% 500 ml Route: IV; Rate: bolus; Site: right forearm; ha1 23:50 Follow up: Response: No adverse reaction; IV Status: Completed infusion; IV Intake: ha1 500ml 22:00 Drug: Meropenem 1 grams Route: IV; Rate: per protocol; Site: left forearm; ha1 06/09 04:15 Not Given (Duplicate Order): NS 0.9% 1000 ml IV at 125 ml/hr continuous ha1 Disposition Summary: 06/08/22 18:48 Hospitalization Ordered Hospitalization Status: Inpatient Admission scott Condition: Fair scott Problem: new scott Symptoms: have improved scott Bed/Room Type: Standard scott Provider: Eren Varela(06/08/22 19:52) cp Location: Telemetry/MedSurg (Inpatient)(06/09/22 05:48) cg Room Assignment: [facility](06/09/22 05:48) Diagnosis - Acute cystitis - suprapubic catherter scott - Elevated white blood cell count scott - Cerebral palsy, unspecified scott - Obesity, unspecified scott Forms: - Medication Reconciliation Form scott - SBAR form scott Signatures: Dispatcher [employer] EDClifton Singleton MD MD cha Martinez, Eric em1 Mackenzie Santa RN RN ss Page, Corey, PA PA cp Garcia, Cindy, RN RN Brittany Loya RN RN Karine Zapien RN RN [facility] Megan Watkins RN RN ko1 Corrections: (The following items were deleted from the chart) 06/08 18:53 18:48 Telemetry/MedSurg (Inpatient) scott cg 18:53 18:48 scott cg 19:52 18:48 Eduar Akers cha cp 06/09 05:48 06/08 18:53 [facility] ER HOLD cg cg 06/09 05:48 11/25 18:53 [facility]
--- NOTE | 2022-06-08 19:15 | RAD REPORT ---
EXAM DESCRIPTION: CT - Abdomen Pelvis Wo Contrast - 06/08/2022 7:02 pm CLINICAL HISTORY: Abdominal pain COMPARISON: September 2021 TECHNIQUE: Computed axial tomography of the abdomen and pelvis was obtained. IV and oral contrast we re not requested. All CT scans are performed using dose optimization technique as appropriate and may include automated exposure control or mA/KV adjustment according to patient size. FINDINGS: The evaluation of solid organs, vessels and bowel is limited secondary to the lack of con trast administration. The liver, spleen, pancreas, adrenals and kidneys appear grossly normal. The appendix is normal. There is no evidence of diverticulitis. Dialysis catheter with its tip in the anterior right lower abdomen. Spina bifida. Small umbilical hernia. Mild inguinal lymphadenopathy probably reactive Suprapubic catheter in place with chronic bladder wall thickening IMPRESSION: No acute abnormality is displayed.
--- NOTE | 2022-06-08 19:46 | RAD REPORT ---
EXAM DESCRIPTION: [place] Single View06/08/2022 7:33 pm CLINICAL HISTORY: Cough COMPARISON: December 2021 FINDINGS: The lungs appear clear of acute infiltrate. The heart is normal size. A EDITOR IN CHIEF NEWSPAPER shunt courses the chest IMPRESSION: No acute abnormalities displayed
[2022-06-08] MEDS ORDERED: ACETAMINOPHEN 500 MG TAB PO PRN (19:54)
[2022-06-08] MEDS ORDERED: ONDANSETRON 4 MG/2 ML VIAL IV PRN (19:54)
[2022-06-08] MEDS ORDERED: Meropenem 1000 MG/VIAL IV ONE (20:29)
[2022-06-08] MEDS ORDERED: NA CHLORIDE 0.9% 100 ML IV ONE (20:29)
[2022-06-08 21:13] VITALS: BMI 57.9
[2022-06-08] MEDS: NA CHLORIDE 0.9% 1,000 ML IV SCH (22:00)
[2022-06-09] MEDS: NA CHLORIDE 0.9% 1,000 ML IV SCH ×3 (04:00→20:00)
[2022-06-09 05:43] LABS: SARS-CoV-2 Antigen Rapid Res Negative (Negative)
[2022-06-09 07:06] LABS: Absolute Lymphocytes (CBC) 1.7 K/uL (0.7-4.9); Hematocrit 46.4 % (39.6-49.0); Lymphocytes % 17.9 % (15.3-44.8); MCV 85.2 fL (80-100); MPV 7.7 fL (7.6-11.3); RBC Red Blood Cell Count 5.45 M/uL (4.33-5.43)
[2022-06-09 07:22] LABS: Potassium 3.9 mmol/L (3.5-5.1)
[2022-06-09] MEDS ORDERED: NA CHLORIDE 0.9% 100 ML ONE (07:49)
[2022-06-09] MEDS ORDERED: Meropenem 1000 MG/VIAL IV ONE (07:58)
[2022-06-09] MEDS: Meropenem 1,000 MG in NA CHLORIDE 0.9% 100 ML IV SCH ×2 (09:04→22:04)
--- NOTE | 2022-06-09 09:30 | P.HP ---
Certification for Inpatient Patient admitted to: Inpatient With expected LOS: >2 Midnights Patient will require the following post-hospital care: None Practitioner: I am a practitioner with admitting privileges, knowledge of patient current condition, hospital course, and medical plan of care. 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 He has a history of Spina Bifida. He is wheelchair bound, chronic pressure ulcer, dm2 and chronic pain syndrome. For the past few days he has been having some malasia. Had fever and chills last night as well as some nausea. Decided to come to the ER. The patient was admitted as he had a wbc of 13 and leukocytes in his urine As he has a chronic suprapubic catheter this is a complicated uti. He has had esbl in the past. Allergies levofloxacin [From Levaquin] Allergy (Intermediate, Verified 09/25/21 12:15) Hives morphine Allergy (Intermediate, Verified 09/25/21 12:15) Hives sulfamethoxazole [From Bactrim] Allergy (Intermediate, Verified 09/25/21 12:15) Hives ketorolac tromethamine [From Toradol] Allergy (Verified 09/25/21 12:15) Nausea/Vomiting Penicillins Allergy (Verified 09/25/21 12:15) Hives/Rash vancomycin Allergy (Verified 09/25/21 12:15) Hives ondansetron [From Zofran (as hydrochloride)] Adverse Reaction (Mild, Verified 09/25/21 12:15) Nausea/Vomiting amoxicillin [From Augmentin] Adverse Reaction (Verified 09/25/21 12:15) Hives/Rash ciprofloxacin Adverse Reaction (Verified 09/25/21 12:15) Nausea/Vomiting doxycycline Adverse Reaction (Verified 09/25/21 12:15) Nausea/Vomiting sesame seed Adverse Reaction (Verified 09/25/21 12:15) diarrhea pop corn Adverse Reaction (Severe, Uncoded 09/25/21 12:15) diarrhea Home Medications: Hydromorphone [Dilaudid] 4 mg PO Q8HP PRN 09/25/21 Insulin Glargine,Hum.rec.anlog [Semglee] 40 unit SQ DAILY 90 Days #40 ml 12/28/21 Edwin [Edwin*] 1 pkt PO BID 90 Days #90 powd.pack 12/28/21 Medihoney [Medihoney Woundcare Gel*] 1 appl TOP DAILY 90 Days #3 tube 12/28/21 Pen Needle, Diabetic, Safety [Assure Id Pen Needle] 1 each MC DAILY 90 Days #90 dis.needle 12/28/21 - Past Medical/Surgical History Has patient received pneumonia vaccine in the past: No Diabetic: No -: Spina Bifida with hydrocephalus -: Depression -: Insomnia -: Incontinence -: GERD -: Chronic pain syndrome -: Muscle wasting -: Paraplegia -: Shunt revision -: Cholecystectomy -: Foot surgery -: Hip sx BL -: Bilateral hip surgery -: Appendectomy Psychosocial/ Personal History: Patient currently single. He has no children. He is disabled. - Family History Father -: Hypertension Mother -: Hypertension - Social History Smoking Status: Current some day smoker Alcohol use: Yes CD- Drugs: No Caffeine use: Yes Review of Systems 10-point ROS is otherwise unremarkable General: Fever, Chills Gastrointestinal: Nausea Physical Examination - Vital Signs Temperature: 97.2 F Blood Pressure: 113/72 Pulse: 93 Respirations: 16 Pulse Ox (%): 95 - Physical Exam General: Alert, In no apparent distress HEENT: Atraumatic, PERRLA, Mucous membr. moist/pink, EOMI, Sclerae nonicteric Neck: Supple, 2+ carotid pulse no bruit, No LAD, Without JVD or thyroid abnormality Respiratory: Clear to auscultation bilaterally, Normal air movement Cardiovascular: Regular rate/rhythm, Normal S1 S2 Gastrointestinal: Normal bowel sounds, No tenderness Musculoskeletal: No tenderness Integumentary: No rashes Neurological: Normal gait, Normal speech, Normal strength at 5/5 x4 extr, Normal tone, Normal affect Lymphatics: No axilla or inguinal lymphadenopathy - Studies Laboratory Data (last 24 hrs) 06/08/22 18:25: WBC 13.90 H, Hgb 17.3, Hct 52.7 H, Plt Count 513 H 06/08/22 17:47: Sodium 137, Potassium 4.8, BUN 15, Creatinine 0.73, Glucose 118 H, Total Bilirubin 0.5, AST 21, ALT 41, Alkaline Phosphatase 127 H, Lipase 113 Assessment and Plan - Problems (Diagnosis) (1) Complicated UTI (urinary tract infection) Current Visit: Yes Status: Acute Plan: Will admit the patient. Start him on meropenem. Await cultures. (2) Chronic indwelling Alcantara catheter Onset Date: 05/17/17 Current Visit: No Status: Chronic Plan: Currently stable. May consult urology on Saturday if it needs to be changed. he has difficulty getting to offices. (3) Chronic pain disorder Onset Date: 05/17/17 Current Visit: No Status: Chronic Plan: restart his home dilaudid dosage. he is under treatment by Dr. Nina. (4) Diabetes Current Visit: No Status: Chronic Plan: will continue his lantus and start him on a sliding scale Qualifiers: Diabetes mellitus type: type 2 Diabetes mellitus penitentiary insulin use: with terminal gauger use Diabetes mellitus complication status: with skin complications Diabetes mellitus complication detail: with foot ulcer Qualified Code(s): E11.621 - Type 2 diabetes mellitus with foot ulcer; L97.509 - Non-pressure chronic ulcer of other part of unspecified foot with unspecified severity; Z79.4 - USP (current) use of insulin (5) Spina bifida Onset Date: 05/17/17 Current Visit: No Status: Chronic Plan: chronic wheelchair bound Qualifiers: Spinal region: lumbar Presence of hydrocephalus: without hydrocephalus Qualified Code(s): Q05.7 - Lumbar spina bifida without hydrocephalus (6) Stage II pressure ulcer of right ankle Current Visit: No Status: Resolved Discharge Plan: Home Plan to discharge in: 24 Hours - Advance Directives Does patient have a Living Will: No Does patient have a Durable POA for Healthcare: No - Code Status/Comfort Care Code Status Assessed: No Code Status: Full Code Physician Review: Patient Assessed, Agree with Above Assessment and Plan Critical Care: No Time Spent Managing Pts Care (In Minutes): 45
[2022-06-09] MEDS: HYDROMORPHONE ORAL 4 MG TAB PO PRN ×2 (11:24→20:25)
[2022-06-09] MEDS ORDERED: INFLUENZA VACCINE (for 6+ mo) 0.5 ML DOSE IMVAC ONE (14:00)
[2022-06-09] MEDS: JUVEN PACKET PO SCH (22:04)
[2022-06-10] MEDS: HYDROMORPHONE ORAL 4 MG TAB PO PRN ×2 (04:39→17:23)
[2022-06-10] MEDS ORDERED: ONDANSETRON 4 MG (ODT) TAB PO PRN (05:13)
[2022-06-10] MEDS: NA CHLORIDE 0.9% 1,000 ML IV SCH ×3 (06:32→20:00)
[2022-06-10] MEDS: JUVEN PACKET PO SCH ×3 (09:00→20:51)
[2022-06-10] MEDS: Meropenem 1,000 MG in NA CHLORIDE 0.9% 100 ML IV SCH ×2 (09:14→20:49)
[2022-06-10] MEDS: PROMETHAZINE 25 MG TABLET PO PRN ×2 (09:14→17:24)
[2022-06-10] MEDS: INSULIN GLARGINE 100 UNIT/ML SQ SCH (09:16)
--- NOTE | 2022-06-10 11:03 | P.PN ---
Subjective Date of Service: 06/10/22 Primary Care Provider: Nichole Chief Complaint: UTI Subjective: No new changes, C/O voiced (nausea) Review of Systems 10-point ROS is otherwise unremarkable Gastrointestinal: Nausea Physical Examination - Vital Signs Temperature: 97.1 F Blood Pressure: 106/66 Pulse: 91 Respirations: 16 Pulse Ox (%): 96 - Studies Microbiology Data (last 24 hrs): 06/08/22 17:00 Clean Catch Urine [place] Count - Final >100,000 CFU/ML. 06/08/22 17:00 Clean Catch Urine - Final Proteus Mirabilis Assessment And Plan - Current Problems (Diagnosis) (1) Complicated UTI (urinary tract infection) Current Visit: Yes Status: Acute Plan: Will admit the patient. Start him on meropenem. Await cultures. 06/10 awaiting cultures (2) Chronic indwelling Alcantara catheter Onset Date: 05/17/17 Current Visit: No Status: Chronic Plan: Currently stable. May consult urology on Saturday if it needs to be changed. he has difficulty getting to offices. (3) Chronic pain disorder Onset Date: 05/17/17 Current Visit: No Status: Chronic Plan: restart his home dilaudid dosage. he is under treatment by Dr. Nina. (4) Diabetes Current Visit: No Status: Chronic Plan: will continue his lantus and start him on a sliding scale Qualifiers: Diabetes mellitus type: type 2 Diabetes mellitus filler leaf cutter long insulin use: with filler leaf cutter long use Diabetes mellitus complication status: with skin complica tions Diabetes mellitus complication detail: with foot ulcer Qualified Code(s): E11.621 - Type 2 diabetes mellitus with foot ulcer; L97.509 - Non- pressure chronic ulcer of other part of unspecified foot with unspecified severity; Z79.4 - terminal worker (current) use of insulin (5) Spina bifida Onset Date: 05/17/17 Current Visit: No Status: Chronic Plan: chronic wheelchair bound Qualifiers: Spinal region: lumbar Presence of hydrocephalus: without hydrocephalus Qualified Code(s): Q05.7 - Lumbar spina bifida without hydrocephalus (6) Stage II pressure ulcer of right ankle Current Visit: No Status: Resolved Discharge Plan: Home Plan to discharge in: 24 Hours - Code Status/Comfort Care Code Status Assessed: No Physician Review: Patient Assessed, Agree with Above Assessment and Plan Critical Care: No Time Spent Managing PTS Care (In Minutes): 20
[2022-06-11] MEDS: NA CHLORIDE 0.9% 1,000 ML IV SCH (01:41)
[2022-06-11] MEDS: HYDROMORPHONE ORAL 4 MG TAB PO PRN ×2 (01:42→11:31)
[2022-06-11] MEDS: PROMETHAZINE 25 MG TABLET PO PRN ×2 (01:42→11:31)
[2022-06-11] MEDS: JUVEN PACKET PO SCH (07:40)
[2022-06-11] MEDS: INSULIN GLARGINE 100 UNIT/ML SQ SCH (08:58)
[2022-06-11] MEDS: Meropenem 1,000 MG in NA CHLORIDE 0.9% 100 ML IV SCH ×2 (08:59→09:00)
[2022-06-11 10:23] VITALS: O2SAT 91
[2022-06-11 12:58] VITALS: BP 139/84; TEMP 97.8
--- NOTE | 2022-06-11 15:13 | P.DS ---
Admission Date: 06/08/22 Discharge Date: 06/11/22 Primary Care Provider: Nichole Reason for Admission: UTI - Problems (1) Complicated UTI (urinary tract infection) Current Visit: Yes Status: Acute (2) Chronic indwelling Alcantara catheter Onset Date: 05/17/17 Current Visit: No Status: Chronic (3) Chronic pain disorder Onset Date: 05/17/17 Current Visit: No Status: Chronic (4) Diabetes Current Visit: No Status: Chronic Qualifiers: Diabetes mellitus type: type 2 Diabetes mellitus penitentiary insulin use: with penitentiary use Diabetes mellitus complication status: with skin complications Diabetes mellitus complication detail: with foot ulcer Qualified Code(s): E11.621 - Type 2 diabetes mellitus with foot ulcer; L97.509 - Non-pressure chronic ulcer of other part of unspecified foot with unspecified severity; Z79.4 - ferry terminal agent (current) use of insulin (5) Spina bifida Onset Date: 05/17/17 Current Visit: No Status: Chronic Qualifiers: Spinal region: lumbar Presence of hydrocephalus: without hydrocephalus Qualified Code(s): Q05.7 - Lumbar spina bifida without hydrocephalus (6) Stage II pressure ulcer of right ankle Current Visit: No Status: Resolved Brief History of Present Illness: 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 He has a history of Spina Bifida. He is wheelchair bound, chronic pressure ulcer, dm2 and chronic pain syndrome. For the past few days he has been having some malasia. Had fever and chills last night as well as some nausea. Decided to come to the ER. The patient was admitted as he had a wbc of 13 and leukocytes in his urine As he has a chronic suprapubic catheter this is a complicated uti. He has had esbl in the past. Hospital Course: Patient was admitted for UTI. Was found to be proteus mirableus. Sensitive to ceftriaxone. He is willing to give himself IM injections. Will have wound care look at his wounds. Will need to screen him for sleep apnea and order a home sleep study for the patient. He does not have a cpap at this time. he wakes up with headaches frequently Vital Signs/Physical Exam: Temp Pulse Resp BP Pulse Ox 97.8 F 95 H 18 139/84 97 06/11/22 12:00 06/11/22 12:00 06/11/22 12:00 06/11/22 12:00 06/11/22 12:00 General: Alert, In no apparent distress HEENT: Atraumatic, PERRLA, EOMI Neck: Supple, JVD not distended Respiratory: Clear to auscultation bilaterally, Normal air movement Cardiovascular: Regular rate/rhythm, Normal S1 S2 Gastrointestinal: Normal bowel sounds, No tenderness Musculoskeletal: No tenderness Integumentary: No rashes Neurological: Normal speech, Normal tone, Normal affect Lymphatics: No axilla or inguinal lymphadenopathy Laboratory Data at Discharge: WBC 9.30 K/uL (4.3-10.9) 06/09/22 06:58 Hgb 15.5 g/dL (13.6-17.9) D 06/09/22 06:58 Hct 46.4 % (39.6-49.0) 06/09/22 06:58 Plt Count 427 K/uL (152-406) H 06/09/22 06:58 Sodium 141 mmol/L (136-145) 06/09/22 06:58 Potassium 3.9 mmol/L (3.5-5.1) D 06/09/22 06:58 BUN 16 mg/dL (7-18) 06/09/22 06:58 Creatinine 0.63 mg/dL (0.55-1.3) 06/09/22 06:58 Glucose 138 mg/dL (74-106) H 06/09/22 06:58 Total Bilirubin 0.5 mg/dL (0.2-1.0) 06/08/22 17:47 AST 21 U/L (15-37) 06/08/22 17:47 ALT 41 U/L (12-78) 06/08/22 17:47 Alkaline Phosphatase 127 U/L (45-117) H 06/08/22 17:47 Lipase 113 U/L (73-393) 06/08/22 17:47 Home Medications: Hydromorphone [Dilaudid] 4 mg PO Q8HP PRN 09/25/21 Insulin Glargine,Hum.rec.anlog [Semglee] 40 unit SQ DAILY 90 Days #40 ml 12/28/21 Edwin [Edwin*] 1 pkt PO BID 90 Days #90 powd.pack 12/28/21 Medihoney [Medihoney Woundcare Gel*] 1 appl TOP DAILY 90 Days #3 tube 12/28/21 Pen Needle, Diabetic, Safety [Assure Id Pen Needle] 1 each MC DAILY 90 Days #90 dis.needle 12/28/21 Amox/Clavulanate [Augmentin 875-125 Tab] 1 each PO BID 7 Days #14 tab 06/11/22 Ceftriaxone [Rocephin*] 1,000 mg IM DAILY 7 Days #7 ml 06/11/22 Smz./Tmp. [Bactrim Ds 800 MG/160 MG] 1 tab PO BID 7 Days #14 tab 06/11/22 New Medications: Amox/Clavulanate [Augmentin 875-125 Tab] 1 each PO BID 7 Days #14 tab Smz./Tmp. [Bactrim Ds 800 MG/160 MG] 1 tab PO BID 7 Days #14 tab Ceftriaxone [Rocephin*] 1,000 mg IM DAILY 7 Days #7 ml Diet: ADA Activity: Ad dinorah Followup: Eren Varela MD [Primary Care Provider] - Physician Review: Patient Assessed, Agree with Above Assessment and Plan Time spent managing pt's care (in minutes): 50
[2022-06-11] MEDS ORDERED: Meropenem 1,000 MG in NA CHLORIDE 0.9% 100 ML IV SCH (17:00)
== END 2022-06-11 15:45 | disposition home or self-care (01) | DRG 699 ==
LOC: ER 14:00 → ERHOLD 19:59 → 2ND 06-09 05:52
PROVIDERS: ADMIT Internal Medicine; ATTEND Internal Medicine
DX: T83.510A Infection and inflammatory reaction due to cystostomy catheter, initial encounter (principal); N39.0 Urinary tract infection, site not specified; Z68.43 Body mass index [BMI] 50.0-59.9, adult; E66.9 Obesity, unspecified; I10 Essential (primary) hypertension; E11.621 Type 2 diabetes mellitus with foot ulcer; L89.512 Pressure ulcer of right ankle, stage 2; G89.4 Chronic pain syndrome; K21.9 Gastro-esophageal reflux disease without esophagitis; Q05.7 Lumbar spina bifida without hydrocephalus; J45.909 Unspecified asthma, uncomplicated; F17.200 Nicotine dependence, unspecified, uncomplicated; B96.4 Proteus (mirabilis) (morganii) as the cause of diseases classified elsewhere; Z88.1 Allergy status to other antibiotic agents; Z88.0 Allergy status to penicillin; Z99.3 Dependence on wheelchair; Z88.8 Allergy status to other drugs, medicaments and biological substances; Z88.5 Allergy status to narcotic agent; Z79.4 Long term (current) use of insulin; Z90.49 Acquired absence of other specified parts of digestive tract; Z79.899 Other long term (current) drug therapy; Z20.822 Contact with and (suspected) exposure to COVID-19
CPT/HCPCS: 36415; 71045; 74176; 80048; 80053; 81015; 82947; 83605; 83690; 85025; 87040; 87077; 87086; 87088; 87186; 87811; 99251; 99285; J1170; J2185; J2550; J7030; J7040; Q0169

== ENCOUNTER 2022-06-27 16:29 | Emergency (ER) | payer OTHER ==
[2022-06-27] MEDS ORDERED: Meropenem 1000 MG/VIAL IV ONE (17:04)
[2022-06-27] MEDS ORDERED: NA CHLORIDE 0.9% 100 ML IV ONE (17:05)
[2022-06-27] MEDS ORDERED: NA CHLORIDE 0.9% 1,000 ML ONE (17:05)
--- OUTSIDE RECORDS SUMMARY | 2022-06-27 17:09 | XMS REPORT | Continuity of Care Document ---
:1985 Author Organization [facility] t Address [address] [place] [address] Care Team Providers Name Role Phone Sharpless Primary Care Physician YUDI HOLLOWAY Attending Clinician Unavailable YUDI HOLLOWAY Attending Clinician Unavailable ALHAJI INMAN Attending Clinician Unavailable Lab, Ang - Db Attending Clinician Unavailable NEGAR GUARDADO Attending Clinician Unavailable Raymundo BOYLE, Lynette Do Attending Clinician Negar Guardado DO Attending Clinician STEPHANIE BALDERRAMA Attending Clinician Unavailable Jamal HYDRAULIC JACK MECHANIC, Stephanie Quiles Attending Clinician CARMELITA SERNA Attending Clinician Unavailable Carmelita Serna MD Attending Clinician Kamila Zepeda LVN Attending Clinician KAYLEE ARGUETA Attending Clinician Unavailable Opal GODINEZ, Diomedes Attending Clinician Kaylee Argueta MD Attending Clinician SARAH BETH PAUL A Attending Clinician Unavailable [place] DISLA, Vesta Petit Attending Clinician Unavailable Concetta Jackson MD Attending Clinician Christiano DISLA, Kristie Johnson Attending Clinician VICTORINO CONROY Attending Clinician Unavailable Harry HYDRAULIC JACK MECHANIC, Vic B Attending Clinician Edwardo NUNO, Royer Suárez Attending Clinician [phone] Michelle NUNO, Bret Burton Attending Clinician Mayank NUNO, Adonis G Attending Clinician Victorino Conroy MD Attending Clinician Heide Abraham MD Attending Clinician Francisco NUNO, Huy Johnson Attending Clinician Beverly PEREA, Sarah Beth A Attending Clinician [phone] KENDALL CONNOLLY Attending Clinician Unavailable Carlene Montgomery Attending Clinician Kendall Connolly MD Attending Clinician SHAHBAZ BUENROSTRO Attending Clinician Unavailable JONATHAN SANFORD Attending Clinician Unavailable Randall Sands MD Attending Clinician Jonathan Sanford DO Attending Clinician JENNIFER OLIVERA Attending Clinician Unavailable Jennifer Olivera MD Attending Clinician COMPA BUENROSTRO Attending Clinician Unavailable Dontae Talley MD Attending Clinician Compa Buenrostro MD Attending Clinician Vadim Ferreira APN Attending Clinician Mario Urbina Attending Clinician KIRIT LARA Attending Clinician Unavailable Vito Mckeon MD Attending Clinician Romelia NUNO, Thomas Attending Clinician Tao NUNO, Daily Dailey Attending Clinician Kirit Lara MD Attending Clinician Unavailable COURTNEY MENDES Attending Clinician Unavailable Courtney Mendes MD Attending Clinician Edilberto Alexis Attending Clinician EDILBERTO ALEXIS Attending Clinician Unavailable Josemanuel [place] Attending Clinician Roger NEFF Attending Clinician Unavailable Roger aLm Attending Clinician LYNETTE FONSECA Attending Clinician Unavailable Only, Ang Db Test Attending Clinician Unavailable Aracelis Lundberg MD Attending Clinician ARACELIS LUNDBERG Attending Clinician Unavailable Madonna Preciado Attending Clinician MADONNA SAUNDERS Attending Clinician Unavailable DICKSON MEDRANO Attending Clinician Unavailable Zahra De Jesus Attending Clinician Ruth Quesada Attending Clinician JAQUELIN GENAO Attending Clinician Unavailable NEGAR GUARDADO Admitting Clinician Unavailable Negar Guardado DO Admitting Clinician CARMELITA SERNA Admitting Clinician Unavailable KAYLEE ARGUETA Admitting Clinician Unavailable Kaylee Argueta MD Admitting Clinician BRET MARTINEZ Admitting Clinician Unavailable Michelle NUNO, Bret Burton Admitting Clinician KENDALL CONNOLLY Admitting Clinician Unavailable Cathleen NUNO, Kendall Admitting Clinician JONATHAN SANFORD Admitting Clinician Unavailable COMPA BUENROSTRO Admitting Clinician Unavailable Narendra NUNO, Compa Admitting Clinician VITO MCKEON Admitting Clinician Unavailable [...] Number Effective Date Expiration Date S samir [facility] STAR [id number] 2020 PLUS 00:00:00 [facility] ST[facility] [id number] 2022 00:00:00 Problems Condition Condition Condition Status Onset Resolution Last Treating Co mments Source Name Details Category Date Date Treatment Clinician Date Lactic Lactic Disease Active 2021-07 Univers acidosis acidosis 1-06 ity of 00:00: [place] 00 Medical Branch Nausea and Nausea and Disease Active 2021-07 U nivers vomiting, vomiting, 0-21 ity of unspecifie [place] vomiting d vomiting 00 Me dical type type Branch Chest pain Chest pain Disease Active U nivers 8-04 ity of 00:00: [place] 00 Medical Branch Foot ulcer Foot ulcer Disease Active Overview : Univers with fat with fat 02-14 Formattin ity of layer layer 00:00: g of this [place] exposed, exposed, 00 note Medica l left left might be Branch different from the original. Added automatic ally from request for surgery [id number] Right foot Right foot Disease Active Overview : Univers ulcer, ulcer, 02-14 Formattin ity of with fat with fat 00:00: g of this [place] as layer layer 00 note Medical exposed exposed might be Branch different from the original. Added automatic ally from request for surgery [id number] Diabetic Diabetic Disease Active Unive rs ketoacidos [...] braulio pedro pedro 12-19 ity of 00:00: [place] [facility] Decubitus Decubitus Disease Active Uni vers ulcer of ulcer of -05 ity of heel, heel, 00:00: [place] left, left, 00 Medical unstageabl unstageabl Br anch e e Diabetic Diabetic Disease Active Unive rs ketoacidos ketoacidos 6-05 it y of is without is without 00[place]00[place] coma coma 00 Medical associated associated Br anch with type with type 2 diabetes 2 diabetes mellitus mellitus Decubitus Decubitus Disease Active Uni vers ulcer of ulcer of 6-05 ity of heel, heel, 00:00: [place] left, left, 00 Medical unstageabl unstageabl Br anch e e Pyuria Pyuria Disease Active Univers 6 ity of 00:00: [place] 00 Medical Branch Chronic Chronic Disease Active Univers suprapubic suprapubic 12-15 it y of catheter catheter 00:00: Medical Branch Uncontroll Uncontroll Disease Active U braulio ed ed 12-15 ity of diabetes diabetes 00:00: [place] mellitus mellitus 00 Medica l with with Branch complicati complicati ons ons Spina Spina Disease Recurre Univers bifida bifida nce 12-15 ity of 00:00: [place] 00 Medical Branch Wound Wound Disease Active Univers infection infection 5-11 ity of 00:00: [address] Branch Chills Chills Disease Active Univers 5-11 ity of 00:00: [address] POSSIBLE POSSIBLE Diagnosis Active 2021-11-01 Memoria [employer]T [employer]T 4- 21:48:00 l MALFUNCTIO MALFUNCTIO 00:00: Alexis granados N N Active 00 10/20/2021 [facility] [place] [facility] [employer]T Diagnosis Active 2021-10-11 Memoria MALFUNCTIO MALFUNCTIO - 14:12:00 l N N Active 00:00: Jason 10/06/2021 [facility] [place] [facility] TECH[employer] SALES [employer]ATE [employer]T TE[employer] SALES [employer]ATE [employer]T Diagnosis Active 2021-10-05 Memoria MALFUCTION MALFUCTION 10-05 23:59:00 l Active 00:00: Jason 10/05/2021 [facility] [place] [facility] Complicate Complicate Disease Active U nivers d urinary d urinary 1-20 ity of tract tract 00:00: [place] infection infection 00 [facility] Hyperglyce Hyperglyce Disease Active [facility] without without 00:00: Medical ketosis ketosis 00 [place] HEADACHE HEADACHE Diagnosis Active 2017-072018-05-27 Memoria Active 07-22 22:05:00 l 05/22/2018 00:00: [facility] [address] SHUNT SHUNT Diagnosis Active 2017-11-14 Mem oria MALFUNCTIO MALFUNCTIO - 20:00:00 l N N Active 00:00: Jason 11/14/2017 00 [facility] [place] [facility] ACUTE ACUTE Diagnosis Active 2017-11-20 Mem oria HEADACHE HEADACHE - 09:20:00 l Active 00:00: Jason 11/14/2017 [facility] [place] [facility] Spina Spina Disease Active [facility]: [address] Pyelonephr Pyelonephr Disease Active [facility]is [facility] 00:[facility]: Medical [address] [place] [address] Morbid Morbid Disease Active Univers obesity obesity 1-04 ity of with body with body 00:[place] mass index mass index 00 Me dical of of Branch 40.0-49.9 40.0-49.9 Spina Spina Problem 2018-12-09 Memor ia bifida, bifida, 14:14:02 l unspecifie unspecifie He rmann d d 12/09/2018 [facility] [place] [facility] Nausea Nausea Problem 2018-12-09 Erwin benjamin with with 14:14:02 l vomiting, vomiting, Herm philip unspecifie unspecifie d d 12/09/2018 [facility] [place] [facility] Diplopia Diplopia Problem 2018-12-09 Memoria 12/09/2018 14:14:[address] [facility] Cerebral Cerebral Problem 2018-12-09 Memoria palsy, palsy, 14:14:02 l unspecifie unspecifie He rmann d d 12/09/2018 [facility] [place] [facility] Acquired 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-09 Memoria absence of absence of 14:14:02 l other other Jason specified specified parts of parts of digestive digestive tract tract 12/09/2018 [facility] [place] [facility] Nicotine Nicotine Problem 2018-12-09 Memoria dependence dependence 14:14:02 l , , [place] cigarettes cigarettes , , uncomplica uncomplica lester lester 12/09/2018 [facility] [place] [facility] Presence Presence Problem 2018-12-09 Memoria of of 14:14:02 l cerebrospi cerebrospi He rmann nal fluid nal fluid drainage drainage device device 12/09/2018 [facility] [place] [facility] Allergy Allergy Problem 2018-12-09 Me moria status to status to 14:14:02 l other other [place] antibiotic antibiotic agents agents status status 12/09/2018 [facility] [place] [facility] Allergy Allergy Problem 2018-12-09 Me moria status to status to 14:14:02 l other other Jason drugs, drugs, medicament medicament s and s and biological biological substances substances status status 12/09/2018 [facility] [place] [facility] Allergy Allergy Problem 2018-12-09 Me moria status to status to 14:14:02 l narcotic narcotic Christian n agent agent status status 12/09/2018 [facility] [place] [facility] Asthma Asthma Problem Resolve 2021-10-27 Mem oria (disorder) (disorder) d 23:48:47 l Resolved [place] Problem 10/27/2021 [facility] Bronchitis Bronchiti Problem Resolve 2021-10-27 Memoria (disorder) s d 23:48:47 l (disorder) Christian n Resolved Problem 10/27/2021 [facility] 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-27 Memoria palsy palsy d 23:48:47 l (disorder) (disorder) He rmann Resolved Problem 10/27/2021 [facility] Hydrocepha Hydroceph Problem Resolve 2021-10-27 Memoria bam alus d 23:48:47 l (disorder) (disorder) He rmann Resolved Problem 10/27/2021 [facility] Osteomyeli Osteomyel Problem Resolve 2021-10-27 Memoria tis itis d 23:48:47 l (disorder) (disorder) He rmann Resolved Problem 10/27/2021 [facility] Acute pain Acute Problem Active 2021-10-27 M emoria (finding) pain 23:48:47 l (finding) Jason Active Problem 10/27/2021 [facility] Headache Headache Problem Active 2021-10-27 Memoria (finding) (finding) 23:48:47 l Active Jason Problem 10/27/2021 [facility] Morbid Morbid Problem Active 2021-10-27 Mem oria obesity obesity 23:48:47 l (disorder) (disorder) He rmann Active Problem 10/27/2021 [facility] [place] [facility] Providenci Providenc Problem Active 2021-10-27 Memoria a ia 23:48:47 l (organism) (organism) He rmann Active Problem 10/27/2021 Problem added by Discern Expert. [facility] [place] [facility] History of Past Illness Condition Condition Condition Status Onset Resolution Last Treating Co mments Source Name Details Category Date Date Treatment Clinician Date Headache Headache Problem 2017-072018-12-09 2018-12-09 Memoria 05/22/2018- 14:14:02 14:14:02 l 12/09/2018 06:00: [facility] [address] Allergies, Adverse Reactions, Alerts Allergy Allergy Status Severity Reaction(s) Onset Inactive Treating Comm ents Source Name Type Date Date Clinician Amoxicil Propensi Active Hives Univer s jocelyn ty to 7-27 ity of adverse 00:00: [place] reaction 00 Medical s Branch AMOXICIL DRUG Active Hives 2018-0 Univers JOCELYN INGREDI 7-27 ity of 00:00: [place] 00 Medical Branch Metoclop Propensi Active Nausea 2017-1 Univer s ramide ty to and/or 2-20 ity of Hcl adverse Vomiting 00:00: [place] reaction 00 Medical s Branch METOCLOP DRUG Active N/V 2017- Univers RAMIDE INGREDI 2-20 ity of HCL [...] Medical 00 Center ONDANSET Allergy Active N\\T\\V [facility] HCL [facility] (PF) 00:00: Medical [facility] Center Sulfa Propensi Active Other - See Uni [...] SULFAMET DRUG Active Other-Cmnt Univ ers HOPRIM 1-04 ity of DS 00:00: [place] [facility] VANCOMYC DRUG Active Other-Cmnt Univ ers IN INGREDI 1-04 ity of 00:00: [place] 00 Medical Branch Sulfamet Propensi Active Rash Univer s hoxazole ty to 7-19 ity of adverse 00:00: [place] reaction 00 Medical s Branch Ondanset Propensi Active Nausea Univer s kumar Hcl ty to and/or 719 ity of (Pf) adverse Vomiting 00:00: [place] reaction 00 Medical s Branch SULFAMET DRUG Active Rash Univers HOXAZOLE INGREDI 7-19 ity of 00:00: [place] [facility] ONDANSET DRUG Active N/V Univers [...] TROMETHA 00:00: [place] MINE 00 Medical Branch amoxicil amoxicil Active Memori a jocelyn jocelyn l [place] morphine morphine Active Memori a l Jason Toradol Toradol Active Memoria l Jason Minocin Minocin Active Memoria l [place] Zofran Zofran Active Memoria l Jason Levaquin Levaquin Active Memori a l Jason Bactrim Bactrim Active Memoria l [place] Reglan Reglan Active Memoria l [place] Family History Family Member Diagnosis Comments Start Date Stop Date Source Natural father Diabetes [facility] [place] Natural mother No Significant Univer sity of [place] Medical Problems Medical Branch Social History Social Habit Start Date Stop Date Quantity Comments Source History [facility] University o f Alcohol Frequency [facility] edical Branch History [facility] University o f Alcohol Std Drinks [place] Medical Branch History [facility] o f Alcohol Binge [facility] al [place] History of tobacco Cigarette Smoker University [facility] Exposure to 2022-06-15 2022-06-25 Not sure University of SARS-CoV-2 (event) 00:00:00 12:04:00 [facility] Alcohol intake 2022-05-20 2022-05-20 Current drinker Unive rsity of 00:00:00 00:00:00 of alcohol [place] Medical (finding) Branch Education 2022-05-20 2022-05-20 21 University of 00:00:00 00:00:00 [facility] Tobacco use and 2022-05-04 2022-05-04 Smokeless Universit y of exposure 00:00:00 00:00:00 tobacco non-user [facility] dical [place] Alcohol Comment 2022-02-15 2022-02-15 once a year Universi ty of 00:00:00 00:00:00 [facility] Social History 2021-10-06 2021[facility]10-06 [facility] 05:57:00 Cigarettes smoked 2016-12-23 2016-12-23 DEDE Guzman current (pack per 00:00:00 00:00:00 [facility] day) - Reported Sex Ass[birth year] At [birth year] DEDE Bakers 00:00:00 00:00:00 Medical Center Smoking Status Start Date Stop Date Source Social History 2018-05-22 11:26:10 [facility] Medications Ordered Filled Start Stop Current Ordering Indication Dosage Frequency Signature Comments Components Source Medication Medication Date Date Medication? Clinician (SIG) Name Name Nitrofurant 2021-07- Yes 100mg 100 mg, U nivers oin&Nit. 07-22 Oral, BID, ity of Macrocryst 02:00: 01:59 10 doses, [place] (MACROBID) 00 :00 First dose Med ical 100 mg on Sat capsule 100 05/21/22 at mg 2000, Last dose on 05/26/22 at 0800, Routine
Reason for Anti-Infec tive: Empiric Therapy for Suspected Infection< br>Empiric Therapy Site: Urine
D uration of therapy: 72 hours ceFEPIme 2021-07- No 1000mg 1,000 mg, U nivers (MAXIPIME) 07-21 IV ity of 1,000 mg in 21:15: 21:34 [place], [place] NaCl 0.9% 00 :48 ONCE, 1 Medical (NS) 50 mL dose, On [facility] h MINI-BAG Sat05/21/22 at 1515, Administer over 30 Minutes, 50 mL
Reas on for Anti-Infec tive: Documented Infection< br>Documen lester Infection Site: Urine<br&g t;Duration of Therapy: 7 days HYDROmorpho 2021-07 Yes 4mg Take 4 mg U nivers ne 4 mg 1-07 by mouth 3 ity of tablet 17:55: (three) [place] 40 times Medical daily as Branch needed. HYDROmorpho 2021-07 Yes 4mg Take 4 mg U nivers ne 4 mg 1-07 by mouth 3 ity of tablet 17:55: (three) [place] 40 times Medical daily as Branch needed. enoxaparin 2021-07 Yes 40mg 40 mg, Unive rs (LOVENOX) 07-21 Subcutaneo ity of injection 15:00: [place], DAILY, [place] 40 mg 00 First dose Medical on Mon Branch 05/21/22 at 0900, Until Discontinu ed, Routine Sliding 2021-07 Yes Subcutaneo Univ ers Scale -07 us, TID ity of Insulin - 03:00: MEALS+HS, [place] as Lispro 00 First dose Medical (HumaLOG) + on [facility] Fsbg 05/20/22 at Testing 2100, Until Discontinu ed, Routine FENTanyl PF 2021-07- No 75ug 75 mcg, Un ela (SUBLIMAZE 07-21 Slow IV ity o f (PF)) 01:15: 00:23 [place], [place] injection 00 :00 ONCE, 1 Medical 75 mcg dose, On [facility] 05/20/22 at 1915, Routine dextrose 2021-07 Yes 250mL 250 mL, IV Un ela 10% (D10W) 07-21 Infusion, ity of bolus 01:12: PRN - SEE [place] infusion 23 INSTRUCTIO Medic al 250 mL NS, Branch Administer over 60 Minutes, Other, If blood glucose is < or = 70 mg/dL and patient is unable to swallow or has mental status changes, Starting on [place] 05/20/22 at 1912
If blood glucose is [...] KIT) 20 Starting Medical injection 1 on [facility] mg 05/20/22 at 1912, Until Discontinu ed, SAHARA, Blood Glucose < or = 70 mg/dL and patient is unable to swallow or has mental changes. HYDROmorpho 2021-07 Yes 4mg 4 mg, Unive rs ne 07 Oral, ity of (DILAUDID) 01:08: Q6HPRN, [place] [...] 650 57 Starting Medic al mg on [place] Branch 05/20/22 at 1905, Until Discontinu ed, Routine, Pain (scale 1-3) NaCl 0.9% 2021-07- No 1000mL at 999 Uni vers (NS) bolus 07-2107 mL/hr, ity of infusion 00:30: 00:35 1,000 mL, Tim as 1,000 mL 00 :00 IV Medical Infusion, Branch ONCE, 1 dose, On [place] 05/20/22 at 1830, STAT Nitrofurant 2021-07- Yes [id number] 100mg Take 1 Univers oin&Nit. 07-21-15 capsule by ity of Macrocryst 00:00: 05:59 mouth in [place] 100 mg 00 :00 the Medical capsule morning Branch and 1 capsule in the evening. Do all this for 7 days. NaCl 0.9% 2021-07- No 1000mL at 999 Uni vers (NS) bolus 07-20-07 mL/hr, ity of infusion 23:45: 00:36 1,000 mL, Tim as 1,000 mL 00 :00 IV Medical Infusion, Branch ONCE, 1 dose, On [place] 05/20/22 at 1745, [place] FENTanyl PF 2021-07- No 75ug 75 mcg, Un ela (SUBLIMAZE 106 11-06 Slow IV ity o f (PF)) 23:45: 23:19 [place], [place] injection 00 :00 ONCE, 1 Medical 75 mcg dose, On Branch 05/20/22 at 1745, Routine iopamidol 2021-07- No [id number] 85mL 85 mL, Univers (ISOVUE 0-30 10-30 [...] uration of Therapy: Other (see Comments) proMETHazin 2021-07- No 25mg 25 mg, IV Univers e 0-30 10-30 Piggyback, ity of (PHENERGAN) 01:45: 01:47 ONCE, 1 [place] 25 mg in 00 :00 dose, On Medical NaCl 0.9% Sat Branch (NS) 50 mL 05/12/22 IV at 2045, piggyback [place] cefdinir 2021-07 Yes [id number] 300mg Take 1 Un ela 300 mg 0-29 capsule by ity of capsule 00:00: mouth [place] 00 every 12 Medical (twelve) Branch hours. cefdinir 2021-07 Yes [id number] 300mg Take 1 Un ela 300 mg 0-29 capsule by ity of capsule 00:00: mouth [place] 00 every 12 Medical (twelve) Branch hours. cefdinir 2021-07- No [id number] 300mg Take 1 U nivers 300 mg 0-29 - capsule by ity of capsule 00:00: 00:00 mouth [place] 00 :00 every 12 Medical (twelve) Branch hours. HYDROmorpho 2021-07 Yes 4mg Take 4 mg U nivers ne 4 mg 0-23 by mouth 3 ity of tablet 12:52: (three) [place] 28 times Medical daily as Branch needed. HYDROmorpho 2021-1 Yes 4mg Take 4 mg U nivers ne 4 mg 0-23 by mouth 3 ity of tablet 12:52: (three) [place] 28 times Medical daily as Branch needed. HYDROmorpho 2021-1 Yes 4mg Take 4 mg U nivers ne 4 mg 0-23 by mouth 3 ity of tablet 12:52: (three) [place] 28 times Medical daily as Branch needed. HYDROmorpho 2021-07 Yes 4mg Take 4 mg U nivers ne 4 mg 0-23 by mouth 3 ity of tablet 12:52: (three) [place] 28 times Medical daily as Branch needed. HYDROmorpho 2021-07- No .5mg 0.5 mg, Un ela ne 0-06 05- Slow IV ity of (DILAUDID) 03:15: 03:23 Push, [place] injection 00 :00 ONCE, 1 Medical 0.5 mg dose, On Branch 05/05/22 at 2215, Routine
Use approved by (Faculty): ADC PROVIDER HYDROmorpho 2021-07- No .5mg 0.5 mg, Un ela ne 0-05 05- Slow IV ity of (DILAUDID) 02:00: 02:00 [place], [place] injection 00 :00 ONCE, 1 Medical 0.5 mg dose, On Branch 05/04/22 at 2100, Routine
Use approved by (Faculty): ADC PROVIDER doxycycline 2021-07- No 100mg 100 mg, IV Univers (VIBRAMYCIN 0- Piggyback, i ty of ) 100 mg [...] Yes 2000mg 2,000 mg, U nivers (MAXIPIME) 005-09 IV ity of 2,000 mg in 21:00: 20:59 [facility] [place] NaCl 0.9% 00 :00 Q8H ABX, Medica [...] 4 mg 15 Starting Medi efrain on Sat05/04/22 at 1438, Until Discontinu ed, Routine, Pain (scale 7-10) sodium 2021-07 Yes Topical, Univers hypochlorit 0-21 BID, First it y of e 0.125 % 18:30: dose on [place] (DAKIN'S Sat Medical SOLUTION) 05/04/22 Branch solution at 1330, Until Discontinu ed, Routine ceFEPIme 2021-07- No 2000mg 2,000 mg, U nivers (MAXIPIME) 0-05-04 IV ity of 2,000 mg in 13:15: 14:55 [facility], [place] NaCl 0.9% 00 :00 ONCE, 1 Medical (NS) 50 mL dose, On Branc h MINI-BAG 10/21/22 at 0815, Administer over 30 Minutes, 50 [...] 0- Oral, ity of (TYLENOL) 12:08: Q6HPRN, [place] tablet 650 12 Starting Medic al mg on Sat Branch 05/04/22 at 0708, Until Discontinu ed, Routine, Pain (scale 1-3) HYDROmorpho 2021-07- No .5mg 0.5 mg, Un ela ne 0-05-04 Slow IV ity of (DILAUDID) 12:07: 16:23 [place], [place] injection 21 :00 Q4HPRN, 2 Medic al 0.5 mg doses, Branch Starting on Sat05/04/22 at 0707, Until Discontinu ed, Routine, Pain (scale 7-10)
U se approved by (Faculty): ADC PROVIDER proMETHazin 2021-07 Yes 12.5mg 12.5 mg, Univers e 0 IV ity of (PHENERGAN) 12:07: Piggyback, [place] 12.5 mg in 04 Q4HPRN, Medica l [...] Yes 650mg 650 mg, Un ela en Oral, ity of (TYLENOL) 11:01: Q6HPRN, [place] tablet 650 26 Starting Medic al mg on Fri Branch 05/04/22 at 0601, Until Discontinu ed, Routine, Pain (scale 1-3) iopamidol 2021-07- No [id number] 100mL 100 mL, Univers (ISOVUE 05-04 Intravenou ity o f 370-500 mL) 08:00: 08:00 s, ONCE, 1 [place] injection 00 :00 dose, On Medica l 100 mL Fri Branch 05/04/22 at 0300, Routine ceFEPIme 2021-07- No 1000mg 1,000 mg, U nivers (MAXIPIME) 05-04 IV ity of injection 07:15: 07:36 [place], [place] 1,000 mg 00 :00 ONCE, 1 Medical dose, On Branch 05/04/22 at 0215, STAT
Re ason for Anti-Infec [...] IV ity of (PHENERGAN) 06:15: 06:12 Piggyback, [place] 12.5 mg in 00 :00 ONCE, 1 Medica l NaCl 0.9% dose, On Branch (NS) 50 mL Fri IV 05/04/22 piggyback at 0115, [facility] insulin Yes 26U 26 Units, Unive rs glargine 8-14 Subcutaneo ity o f (LANTUS 02:00: us, [facility], [place] U-100) 00 First dose Medical injection (after Branch 26 Units last modificati on) on 02/24/22 at 2100, Until Discontinu ed, Routine insulin 2021- No 24U 24 Units, Univ ers glargine 02-23 Subcutaneo ity of (LANTUS 20:38: 20:43 [place], ONCE, [place] U-100) 00 :00 1 dose, On Medical injection Fri Branch 24 Units 02/23/22 at 1545, [facility] sennosides- Yes 1{tbl} 1 tablet, Univers docusate 02-23 Oral, ity of sodium 14:00: DAILY, [place] (SENOKOT-S) 00 First dose Me dical 8.6-50 [...] i ty of injection 14:00: 17:23 us, [place] 16 Units 00 :36 QAM+HS, Medical First dose Branch (after last modificati on) on 02/23/22 at 0900, Until Discontinu ed, Routine Sliding Yes Subcutaneo Univ ers Scale -12 us, TID ity of Insulin - 13:00: [...] Until Discontinu ed, Routine repaglinide 2021-0 Yes [id number] .5mg Take 1 Univers 0.5 mg 8-12 tablet by ity of tablet 00:00: mouth in [address] morning [place] and 1 tablet at noon and 1 tablet in the evening. Take before meals. sodium 2021-0 Yes [id number] Apply to Un ela hypochlorit 8-12 area(s) ity o f e 0.25% 00:00: daily. [address] repaglinide 2021-0 Yes [id number] .5mg Take 1 Univers 0.5 mg 8-12 tablet by ity of tablet 00:00: mouth in [address] and 1 tablet at noon and 1 tablet in the evening. Take before meals. sodium 2021-0 Yes [id number] Apply to [place] hypochlorit 8-12 area(s) ity o f e 0.25% 00:00: daily. [address] repaglinide 2021-0 Yes [id number] .5mg Take 1 Univers 0.5 mg 8-12 tablet by ity of tablet 00:00: mouth in [address] and 1 tablet at noon and 1 tablet in the evening. Take before meals. sodium 2021-0 Yes [id number] Apply to [facility] hypochlorit 8-12 area(s) ity o f e 0.25% 00:00: daily. [address] repaglinide 2-0 Yes [id number] .5mg Take 1 Univers 0.5 mg 8-12 tablet by ity of tablet 00:00: mouth in [address] morning [place] and 1 tablet at noon and 1 tablet in the evening. Take before meals. sodium 2021-0 Yes [id number] Apply to [facility] hypochlorit 8-12 area(s) ity o f e 0.25% 00:00: daily. [place] solution 00 Medical Branch repaglinide 2022-0 Yes [id number] .5mg Take 1 Univers 0.5 mg 8-12 tablet by ity of tablet 00:00: mouth in [place] [address] the Medical morning Branch and 1 tablet at noon and 1 tablet in the evening. Take before meals. sodium 2022-0 Yes [id number] Apply to [facility] hypochlorit 8-12 area(s) ity o f e 0.25% 00:00: daily. [place] solution 00 Medical Branch repaglinide 2022-0 Yes [id number] .5mg Take 1 Univers 0.5 mg 8-12 tablet by ity of tablet 00:00: mouth in [place] [address] the Medical morning Branch and 1 tablet at noon and 1 tablet in the evening. Take before meals. sodium 2022-0 Yes [id number] Apply to [facility] hypochlorit 8-12 area(s) ity o f e 0.25% 00:00: daily. [place] solution 00 Medical Branch repaglinide 2022-0 Yes [id number] .5mg Take 1 Univers 0.5 mg 8-12 tablet by ity of tablet 00:00: mouth in [place] [address] the Medical morning Branch and 1 tablet at noon and 1 tablet in the evening. Take before meals. sodium 2022-0 Yes [id number] Apply to [facility] hypochlorit 8-12 area(s) ity o f e 0.25% 00:00: daily. [place] solution 00 Medical Branch repaglinide 2022-0 Yes [id number] .5mg Take 1 Univers 0.5 mg 8-12 tablet by ity of tablet 00:00: mouth in [place] [address] the Medical morning [place] and 1 tablet at noon and 1 tablet in the evening. Take before meals. sodium 2022-0 Yes [id number] Apply to [facility] hypochlorit 8-12 area(s) ity o f e 0.25% 00:00: daily. [place] solution 00 Medical Branch repaglinide 2022-0 Yes [id number] .5mg Take 1 Univers 0.5 mg 8-12 tablet by ity of tablet 00:00: mouth in [place] [address] the Medical morning [place] and 1 tablet at noon and 1 tablet in the evening. Take before meals. sodium Yes [id number] Apply to [facility] hypochlorit 8 area(s) ity o f e 0.25% 00:00: daily. [address] repaglinide Yes [id number] .5mg Take 1 Univers 0.5 mg 02-23 tablet by ity of tablet 00:00: mouth in [place] 00 the [facility] and 1 tablet at noon and 1 tablet in the evening. Take before meals. sodium Yes [id number] Apply to [facility] hypochlorit 02-23 area(s) ity o f e 0.25% 00:00: daily. [address] apixaban 5 2021- No 5mg Take 1 Univ ers mg tablet 02-23 tablet by ity of 00:00: 04:59 mouth in [place] 00 :00 [facility] and 1 tablet in the evening. Do all this for 30 days. Indication s: Symtomatic Superficia l Vein thrombosis insulin 2021- No [id number] 24U inject 24 Univers glargine 02-23 Units ity of 100 unit/mL 00:00: 04:59 under the [place] injection 00 :00 skin at [facility] bedtime [place] for 30 days. metFORMIN 2021- No [id number] 500mg Take 1 Univers 500 mg 02-23 tablet by ity of tablet 00:00: 04:59 mouth in [place] 00 :00 [facility] and 1 tablet in the evening. Take with meals. Do all this for 30 days. dulaglutide 2021- No [id number] .75mg inject 1 Univers (TRULICITY) 02-23 Pen under it y of 0.75 mg/0.5 00:00: 04:59 the skin [place] mL PnIj 00 :00 weekly for Medica l 30 days. Branch apixaban 5 2021- No 5mg Take 1 Univ ers mg tablet 02-23 tablet by ity of 00:00: 04:59 mouth in [place] 00 :00 [facility] and 1 tablet in the evening. Do all this for 30 days. Indication s: Symtomatic Superficia l Vein thrombosis insulin 2021- No [id number] 24U inject 24 Univers glargine 02-23 Units ity of 100 unit/mL 00:00: 04:59 under the [place] injection 00 :00 skin at [facility] for 30 days. metFORMIN 2021-2021- No [id number] 500mg Take 1 Univers 500 mg 02-23 tablet by ity of tablet 00:00: 04:59 mouth in [place] 00 :00 the [facility] morning [place] and 1 tablet in the evening. Take with meals. Do all this for 30 days. dulaglutide 2021- No [id number] .75mg inject 1 Univers (TRULICITY) 02-23 Pen under it y of 0.75 mg/0.5 00:00: 04:59 the skin [place] mL PnIj 00 :00 weekly for Medica l 30 days. Branch apixaban 5 2021- No 5mg Take 1 Univ ers mg tablet 02-23 tablet by ity of 00:00: 04:59 mouth in [place] 00 :00 the [facility] and 1 tablet in the evening. Do all this for 30 days. Indication s: Symtomatic Superficia l Vein thrombosis insulin 2021- No [id number] 24U inject 24 Univers glargine 02-23 Units ity of 100 unit/mL 00:00: 04:59 under the [place] injection 00 :00 skin [facility] for 30 days. metFORMIN 2021-2021- No [id number] 500mg Take 1 Univers 500 mg 02-23 tablet by ity of tablet 00:00: 04:59 mouth in [place] 00 :00 the [facility] morning [place] and 1 tablet in the evening. Take with meals. Do all this for 30 days. dulaglutide 2021-2021- No [id number] .75mg inject 1 Univers (TRULICITY) 02-23 Pen [...] Superficia l Vein thrombosis insulin 2021- No [id number] 24U inject 24 Univers glargine 02-23 Units ity of 100 unit/mL 00:00: 04:59 under the [place] injection 00 :00 skin at [facility] bedtime Branch for 30 days. metFORMIN 2021- No [id number] 500mg Take 1 Univers 500 mg 02-23 tablet by ity of tablet 00:00: 04:59 mouth in [place] 00 :00 the [facility] morning Branch and 1 tablet in the evening. Take with meals. Do all this for 30 days. dulaglutide 2021- No [id number] .75mg inject 1 Univers (TRULICITY) 02-23 Pen under it y of 0.75 mg/0.5 00:00: 04:59 the skin [place] mL PnIj 00 :00 weekly for Medica l 30 days. Branch linezolid 2021- No [id number] 600mg Take 1 Univers 600 mg 02-23 tablet by ity of tablet 00:00: 04:59 mouth [place] 00 :00 every 12 [facility] ([facility]) Branch hours for 14 days. fluconazole 2021- No [id number] 400mg Take 2 Univers 200 mg 02-23 tablets by ity of tablet 00:00: 04:59 mouth in [place] 00 :00 the [facility] morning Branch for 14 days. ciprofloxac 2021- No [id number] 500mg Take 2 Univers in HCl 250 02-23 tablets by it y of mg tablet 00:00: 04:59 mouth in [place] 00 :00 the [facility] morning Branch and 2 tablets in the evening. Do all this for 14 days. linezolid 2021- No [id number] 600mg Take 1 Univers 600 mg 02-23 tablet by ity of tablet 00:00: 04:59 mouth [place] 00 :00 every 12 Medical (twelve) Branch hours for 14 days. fluconazole 2021-2021- No [id number] 400mg Take 2 Univers 200 mg 8-12 08-27 tablets by ity of tablet 00:00: 04:59 mouth in [place] 00 :00 the [facility] ER Branch for 14 days. ciprofloxac 2021-0 2021- No [id number] 500mg Take 2 Univers in HCl 250 8- 08-27 tablets by it y of mg tablet 00:00: 04:59 mouth in [place] 00 :00 the [facility] ER Branch and 2 tablets in the evening. Do all this for 14 days. linezolid 2021-0 2021- No [id number] 600mg Take 1 Univers 600 mg 8-06 21-27 tablet by ity of tablet 00:00: 04:59 mouth [place] 00 :00 every 12 [facility] ([facility]) [place] hours for 14 days. fluconazole 2021-0 2021- No [id number] 400mg Take 2 Univers 200 mg 8-06 21-27 tablets by ity of tablet 00:00: 04:59 mouth in [place] 00 :00 the [facility] for 14 days. ciprofloxac 2021-0 2021- No [id number] 500mg Take 2 Univers in HCl 250 8-06 21-27 tablets by it y of mg tablet 00:00: 04:59 mouth in [facility] as 00 :00 the [facility] ER Branch and 2 tablets in the evening. Do all this for 14 days. linezolid 2021-2021- No [id number] 600mg Take 1 Univers 600 mg 8-06 21-27 tablet by ity of tablet 00:00: 04:59 mouth [place] 00 :00 every 12 [facility] ([facility]) [place] hours for 14 days. fluconazole 2021-2021- No [id number] 400mg Take 2 Univers 200 mg 8- 08-27 tablets by ity of tablet 00:00: 04:59 mouth in [place] 00 :00 the [facility] for 14 days. ciprofloxac 2021-0 2021- No [id number] 500mg Take 2 Univers in HCl 250 8-06 21-27 tablets by it y of mg tablet 00:00: 04:59 mouth in [place] 00 :00 the [facility] ER Branch and 2 tablets in the evening. Do all this for 14 days. gabapentin 2021-0 2021- No [id number] 300mg Take 1 Univers 300 mg 02-23 capsule by ity of capsule 00:00: 04:59 mouth in [place] 00 :00 [facility] and 1 capsule at noon and 1 capsule in the evening. Do all this for 7 days. gabapentin No [id number] 300mg Take 1 Univers 300 mg 02-23 capsule by ity of capsule 00:00: 04:59 mouth in [place] 00 :00 [facility] and 1 capsule at noon and 1 capsule in the evening. Do all this for 7 days. gabapentin No [id number] 300mg Take 1 Univers 300 mg 02-23 capsule by ity of capsule 00:00: 04:59 mouth in [place] 00 :00 [facility] and 1 capsule at noon and 1 capsule in the evening. Do all this for 7 days. gabapentin No [id number] 300mg Take 1 Univers 300 mg 02-23 capsule by ity of capsule 00:00: 04:59 mouth in [place] 00 :00 [facility] and 1 capsule at noon and 1 capsule in the evening. Do all this for 7 days. sodium 2021- No [id number] Apply to [facility] hypochlorit 02-23 area(s) ity of e 0.25% 00:00: 00:00 daily. [place] solution 00 :00 [facility] repaglinide No [id number] .5mg Take 1 Univers 0.5 mg 02-23 tablet by ity of tablet 00:00: 00:00 mouth in [place] 00 :00 [facility] and 1 tablet at noon and 1 tablet in the evening. Take before meals. Do all this for 30 days. Sliding 2021- No Subcutaneo Uni vers Scale 02-22 us, TID ity of Insulin - 22:00: 12:34 MEALS+HS, [place] Lispro 00 :51 First dose Medical (HumaLOG) + (after Branch Fsbg last Testing modificati on) on [facility]ra 02/22/22 at 1700, Until Discontinu ed, Routine acetaminoph Yes 1000mg 1,000 mg, Univers en 02-22 Oral, Q8H, ity of (TYLENOL) 19:00: First dose [place] tablet 00 on [facility] Medical 1,000 mg 02/22/22 at [facility] h 1400, Until Discontinu ed, Routine methocarbam Yes 500mg 500 mg, [facility] ela oL 02-22 Oral, Q6H, ity of (ROBAXIN) 17:00: First dose [place] tablet 500 00 on [facility] Medical mg 02/22/22 at Branch 1200, Until Discontinu ed, Routine Sliding 2021- No Subcutaneo Uni vers Scale 02-22 us, TID ity of Insulin - 17:00: 19:31 MEALS+HS, [place] Lispro 00 :30 First dose Medical (HumaLOG) + (after [place] Fsbg last Testing modificati on) on [facility] 02/22/22 at 1200, Until Discontinu ed, Routine insulin NPH Yes 24U 24 Units, U nivers (HUMULIN N) 02-22 Subcutaneo it y of injection 14:00: us, QAM, [place] 24 Units 00 First dose Medic al (after Branch last modificati on) on [facility] 02/22/22 at 0900, Until Discontinu ed, Routine insulin NPH No 20U 20 Units, Univers (HUMULIN N) 02-22 Subcutaneo i ty of injection 14:00: 19:31 us, QAM, [place] 20 Units 00 :02 First dose Medic al (after Branch last modificati on) on [facility] 02/22/22 at 0900, Until Discontinu ed, Routine insulin Yes 5U 5 Units, Univer s lispro 02-22 Subcutaneo ity of (human) 13:45: us, TID [place] (HumaLOG 00 MEALS, Medical U-100) First dose Branch injection 5 (after Units last modificati on) on [facility] 02/22/22 at 0845, Until Discontinu ed, Routine apixaban Yes 5mg 5 mg, Univers (ELIQUIS) 02-22 Oral, BID, ity of tablet 5 mg 13:00: First dose [place] 00 on [facility] Medical 02/22/22 at Branch 0800, Until Discontinu [...] Yes 10U 10 Units, Unive rs lispro 8-10 Subcutaneo ity of (human) 22:00: us, TID [...] 1700, Until Discontinu ed, Routine insulin NPH No [...] 0604, Routine, Pain (scale 7-10) insulin NPH No 20U 20 Units, Univers [...] Sliding 2021- No Subcutaneo Uni vers Scale 02-2111 us, TID ity of Insulin - 13:00: [...] [place] (SENSORCAIN 00 :05 02/20/22 at [facility]) 0.5 1200, Branch % (5 mg/mL) Intra-op [...] injection 00 :00 Starting Medica l on Tu Branch 02/20/22 at 1131, Until Sat02/20/22 at 1256, Routine, Intra-op midazolam IV Push, Uni vers (VERSED) 02-20 ONCE INTRA ity of injection 16:31: 17:56 PROCEDURE, [place] 00 :00 Starting Medical on Sat02/20/22 at 1131, Until Sat02/20/22 at 1256, Routine, Intra-op lactated IV Univers ringers IV 02-20 Infusion, ity of infusion 16:25: 17:56 CONTINUOUS [place] 00 :00 PRN, Medical Starting Branch on Sat02/20/22 at 1125, Until Sat02/20/22 at 1256, Routine, Intra-op insulin NPH 34U 34 Units, Univers (HUMULIN N) 02-20 Subcutaneo i ty of injection 14:00: 12:44 us, QAM, [place] 34 Units 00 :50 First dose Medic al (after Branch last modificati on) on Sat02/20/22 at 0900, Until Discontinu ed, Routine insulin 14U 14 Units, [facility] ers lispro 02-20 Subcutaneo ity of (human) 13:00: 12:44 us, TID [place] (HumaLOG 00 :50 MEALS, Medical U-100) First dose Branch injection (after 14 Units last modificati on) on Sat02/20/22 at 0800, Until Discontinu ed, Routine insulin NPH 32U 32 Units, Univers (HUMULIN N) 02-19 [...] 0959, Routine, Pain (scale 7-10) insulin NPH 36U 36 Units, Univers (HUMULIN N) 02-19 Subcutaneo i ty of injection 14:00: 12:53 us, QAM, [place] 36 Units 00 :44 First dose Medic al (after Branch last modificati on) on Sat02/19/22 at 0900, Until Discontinu ed, Routine insulin No 15U [...] Administer over 60 Minutes, First dose on 02/18/22 at 2215, For 7 days insulin NPH No 38U 38 Units, Univers (HUMULIN N) 02-18 Subcutaneo i ty of injection 22:00: 13:14 us, QPM, [place] 38 Units 00 :25 First dose Medic al (after Branch last modificati on) on [place] 02/18/22 at 1700, Until Discontinu ed, Routine insulin No 18U 18 Units, Univ ers lispro 02-18 Subcutaneo ity of (human) 17:00: 13:15 us, TID [place] (HumaLOG 00 :02 MEALS, Medical U-100) First dose Branch injection (after 18 Units last modificati on) on [place] 02/18/22 at 1200, Until Discontinu ed, Routine insulin NPH No 37U 37 Units, Univers (HUMULIN N) 02-18 Subcutaneo i ty of injection 14:00: 14:15 us, QAM, [place] 37 Units 00 :14 First dose Medic al (after Branch last modificati on) on [place] 02/18/22 at 0900, Until Discontinu ed, Routine [...] at 1123, Routine, Pain (scale 7-10) insulin 2022-0 2022- No 17U 17 Units, Univ ers lispro 02-17 Subcutaneo ity of (human) 22:00: 14:15 us, TID [place] (HumaLOG 00 :14 MEALS, Medical U-100) First dose Branch injection (after 17 Units last modificati on) on 02/17/22 at 1700, Until Discontinu ed, Routine insulin NPH 2021- No 35U 35 Units, Univers (HUMULIN N) 02-17 Subcutaneo i ty of injection 22:00: 13:38 us, QPM, [place] 35 Units 00 :53 First dose Medic al (after Branch last modificati on) on 02/17/22 at 1700, Until Discontinu ed, Routine Sliding Subcutaneo Uni vers Scale 02-17 us, Q4H, ity of Insulin - 21:00: 22:06 First dose [place] Lispro 00 :35 (after Medical (HumaLOG) + last Branch Fsbg modificati Testing on) on 02/17/22 at 1600, Until Discontinu ed, Routine HYDROmorpho 2021- No 4mg 4 mg, [facility] ne 02-17 Oral, ity of (DILAUDID) 17:24: [...] solution 0900, Until Discontinu ed, [place] sodium 2021- Yes Topical, Univers hypochlorit 8-06 DAILY, ity of e 0.25% 14:00: First [place] (DAKIN'S 00 on Sat Medical SOLUTION) 02/17/22 at Branc h solution 0900, Until Discontinu ed, [place] insulin 2021- No 12U 12 Units, [facility] ers lispro 02-17 Subcutaneo ity of [...] KIT) 35 Starting Medical injection 1 on [facility] Branch 02/17/22 at 0722, Until Discontinu ed, [...] swallow or has mental status changes. glucagon 0 Yes 1mg 1 mg, Univers (GLUCAGEN 02-17 Intramuscu ity of DIAGNOSTIC 12:22: lar, PRN, [place] KIT) 35 Starting Medical injection 1 on Sat Branch mg 02/17/22 at 0722, Until Discontinu ed, SAHARA, Blood Glucose < or = 70 mg/dL and patient is unable to swallow or has mental changes. dextrose 50 2022-0 Yes 25mL 25 mL, Univ ers % [...] by (Faculty): [facility] KCL 20 2021- No 40meq 40 mEq, Univer s mEq/15 mL 02-16 Oral, ity of solution 40 23:30: 22:58 ONCE, 1 [place] mEq 00 :00 dose, On Medical Sat02/16/22 Branch at 1830, Routine Sliding Subcutaneo Uni vers Scale 02-16 us, Q4H, ity of Insulin - 22:15: 12:23 First dose [place] Lispro 00 :48 on Sat Medical (HumaLOG) + 02/16/22 at [facility] Fsbg 1715, Testing Until Discontinu ed, Routine insulin NPH 2021- [...] dose, On Medic al (8 %) IV Fri 02/16/22 Branc h Piggyback 4 at 1415, g Routine HYDROmorpho 2021- No .2mg 0.2 mg, Un ela ne 02-16 Slow IV ity of (DILAUDID) 18:00: 18:07 Push, [place] injection 00 :00 ONCE, 1 Medical 0.2 mg dose, On Branch 02/16/22 at 1300, Routine
Use approved by (Faculty): [facility] insulin 6U 6 Units, Unive rs lispro 02-16 [...] 00 :09 First dose Medic al on Sat Branch 02/16/22 at 0900, Until Discontinu ed, [...] :31 Starting Medica l tablet 1 on Sat Branch tablet 02/15/22 at 2032, Until 02/17/22 at 1225, Routine, Pain (scale 7-10) Sliding 2021- No Subcutaneo Uni vers Scale 02-16 us, Q4H, ity of Insulin - 01:00: 21:37 First dose [place] lispro 00 :09 on Libra Medical (humaLOG) + 02/15/22 at [facility] Fsbg 1999, Testing Until Discontinu ed, Routine meropenem 2021- No 1000mg 1,000 mg, Univers (MERREM) 02-16 IV ity of 1,000 mg in 00:15: 02:14 [facility], [place] NaCl 0.9% 00 :44 Q8H ABX, Medica [...] 1 Medical 0.2 mg dose, On Branch [facility] 02/15/22 at 1900, Routine
Use approved by (Faculty): [facility] HYDROmorpho 2021- No .2mg 0.2 mg, Un ela ne 02-15 Slow IV ity of (DILAUDID) 19:30: 18:59 Push, [place] injection 00 :00 ONCE, 1 Medical 0.2 mg dose, On Branch [facility] 02/15/22 at 1430, Routine
Use approved by (Faculty): [facility] cholestyram 2021- No Topical [facility] ela ine-nystati 02-15 (Apply To it y of n-zinc 18:29: 12:46 Affected [place] oxide 12 :35 Areas), Medical ointment PRN, Branch 1:1:1 Starting (COMPOUNDED on Libra ) 02/15/22 at 1329, Until 02/19/22 at 0746, Routine, Wound care, Cuts, abrasions, and skin ulcers iopamidol 2021- No [id number] 60mL 60 mL, Univers (ISOVUE 02-15 Intravenou ity o f 370-500 mL) 17:25: 05:25 s, ONCE, 1 [place] injection 00 :00 dose, On Medica l 60 mL [facility] 02/15/22 Branch at 1230, Routine meropenem 2021- No 1000mg 1,000 mg, Univers (MERREM) 02-15 IV ity of 1,000 mg in 16:45: 20:14 Piggyback, [place] NaCl 0.9% 00 :00 ONCE, 1 Medical (NS) 50 mL dose, On Branc h MINI-BAG [facility] 02/15/22 at 1145, Administer over 30 Minutes, 50 mL
R estricted use approved by: NAMRATA 8TH FLOOR
R keegan for Anti-Infec tive: Documented Infection< br>Documen lester Infection Site: Urine
D uration of Therapy: 7 days pantoprazol Yes 40mg 40 mg, Univ ers e 8 Oral, ity of (PROTONIX) 14:00: DAILY, [place] EC tablet 00 First dose Medi efrain 40 mg on [facility] Branch 02/15/22 at 0900, Until Discontinu ed, Routine
Indicatio n for use: None of the above pantoprazol Yes 40mg 40 mg, Univ ers e 02-15 Oral, ity of (PROTONIX) 14:00: DAILY, [place] EC tablet 00 First dose Medi efrain 40 mg on [facility] Branch 02/15/22 at 0900, Until Discontinu ed, Routine
Indicatio n for use: None of the above heparin Yes 5000U 5,000 Univers (porcine) 02-15 Units, ity of injection 13:00: Subcutaneo [place] 5,000 Units 00 us, Q12H, Med ical First dose Branch on Libra 02/15/22 at 0800, Until Discontinu ed, Routine heparin 2021- No 5000U 5,000 Univers (porcine) 02-15 [...] Discontinu ed, Routine, Local anesthesia NaCl 0.9% 2021-0 Yes 10mL 10 mL, [...] [facility] 02/15/22 at 0230, [place] FENTanyl PF 2021-2021- No 50ug 50 mcg, Un ela (SUBLIMAZE 02-15 Slow IV ity o f (PF)) 06:45: 06:01 Push, [place] injection 00 :00 ONCE, 1 Medical 50 mcg dose, On Branch [facility] 02/15/22 at 0145, Routine cefTRIAXone 2021-0 2021- No 1000mg 1,000 mg, Univers (ROCEPHIN) 02-15 IV ity of 1,000 mg in 05:30: 06:00 Piggyback, [place] NaCl 0.9% 00 :00 ONCE, 1 Medical (NS) 50 mL dose, On Branc h MINI-BAG [facility] 02/15/22 at 0030, Administer over 30 Minutes, 50 mL
R keegan for Anti-Infec tive: Empiric Therapy for Suspected Infection< br>Empiric Therapy Site: Urine
D uration of therapy: 72 hours NaCl 0.9% 2021- No 1000mL at 999 Uni vers (NS) bolus 02-15 mL/hr, ity of infusion 05:30: 07:58 1,000 mL, [place] 1,000 mL 00 :00 IV Medical Infusion, Branch ONCE, 1 dose, On Libra 02/15/22 at 0030, [place] NaCl 0.9% 0 2021- No 1000mL at 999 Uni vers (NS) bolus 02-15 mL/hr, ity of infusion 05:15: 07:58 1,000 [...] No 12.5mg 12.5 mg, Univers e 02-10 IV ity of (PHENERGAN) 21:30: 22:14 Piggyback, [place] 12.5 mg in 00 :00 ONCE, 1 [...] Subcutaneo ity of (human) 17:00: us, TID [place] (HumaLOG 00 MEALS, Medical U-100) First dose [...] Discontinu ed, Routine insulin NPH 2021- No [id number] 50U inject 50 Univers and regular 7-30 08-30 Units ity of human 70-30 00:00: 04:59 under the [place] 100 unit/mL 00 :00 skin every Me dical (70-30) morning Branch injection and evening for 30 days. proMETHazin 2021- No [id number] 12.5mg Insert 1 Univers e 12.5 mg 7- 08-30 Suppositor ity of suppository 00:00: 04:59 y into [place] 00 :00 rectum Medical every 6 Branch (six) hours as needed for Nausea and Vomiting (N/V) for up to 30 days. proMETHazin 2021- No [id number] 12.5mg Take 0.5 Univers e 25 mg 7-30 08-30 tablets by ity o f tablet 00:00: 04:59 mouth [place] 00 :00 every 4 Medical (four) Branch hours as needed for Nausea and Vomiting (N/V) for up to 30 days. insulin NPH 2021- No [id number] 50U inject 50 Univers and regular 7-30 08-30 Units ity of human 70-30 00:00: 04:59 under the [place] 100 unit/mL 00 :00 skin every Me dical (70-30) morning Branch injection and evening for 30 days. proMETHazin 2021- No [id number] 12.5mg Insert 1 Univers e 12.5 mg 7-30 08-30 Suppositor ity of suppository 00:00: 04:59 y into [place] 00 :00 rectum Medical every 6 Branch (six) hours as needed for Nausea and Vomiting (N/V) for up to 30 days. proMETHazin 2021- No [id number] 12.5mg Take 0.5 Univers e 25 mg 7-30 08-30 tablets by ity o f tablet 00:00: 04:59 mouth [place] 00 :00 every 4 Medical (four) Branch hours as needed for Nausea and Vomiting (N/V) for up to 30 days. insulin NPH 2021- No [id number] 50U inject 50 Univers and regular 7-30 08-30 Units ity of human 70-30 00:00: 04:59 under the [place] 100 unit/mL 00 :00 skin every Me dical (70-30) morning Branch injection and evening for 30 days. proMETHazin 2021- No [id number] 12.5mg Insert 1 Univers e 12.5 mg 7-30 08-30 Suppositor ity of suppository 00:00: 04:59 y into [place] 00 :00 rectum Medical every 6 Branch (six) hours as needed for Nausea and Vomiting (N/V) for up to 30 days. proMETHazin 2021- No [id number] 12.5mg Take 0.5 Univers e 25 mg 7-30 08-30 tablets by ity o f tablet 00:00: 04:59 mouth [place] 00 :00 every 4 Medical (four) Branch hours as needed for Nausea and Vomiting (N/V) for up to 30 days. insulin NPH 2021- No [id number] 50U inject 50 Univers and regular 7-30 08-30 Units ity of human 70-30 00:00: 04:59 under the [place] 100 unit/mL 00 :00 skin every Me dical (70-30) morning Branch injection and evening for 30 days. proMETHazin 2021- No [id number] 12.5mg Insert 1 Univers e 12.5 mg 7-30 08-30 Suppositor ity of suppository 00:00: 04:59 y into [place] 00 :00 rectum Medical every 6 Branch (six) hours as needed for Nausea and Vomiting (N/V) for up to 30 days. proMETHazin 2021- No [id number] 12.5mg Take 0.5 Univers e 25 mg 7-30 08-30 tablets by ity o f tablet 00:00: 04:59 mouth [place] 00 :00 every 4 Medical (four) Branch hours as needed for Nausea and Vomiting (N/V) for up to 30 days. insulin NPH 2021- No [id number] 50U inject 50 Univers and regular 7-30 08-30 Units ity of human 70-30 00:00: 04:59 under the [place] 100 unit/mL 00 :00 skin every Me dical (70-30) morning Branch injection and evening for 30 days. proMETHazin 2021- No [id number] 12.5mg Insert 1 Univers e 12.5 mg 7-30 08-30 Suppositor ity of suppository 00:00: 04:59 y into [place] 00 :00 rectum Medical every 6 Branch (six) hours as needed for Nausea and Vomiting (N/V) for up to 30 days. proMETHazin 2021- No [id number] 12.5mg Take 0.5 Univers e 25 mg 7-30 08-30 tablets by ity o f tablet 00:00: 04:59 mouth [place] 00 :00 every 4 Medical (four) Branch hours as needed for Nausea and Vomiting (N/V) for up to 30 days. proMETHazin 2021- No [id number] 12.5mg Insert 1 Univers e 12.5 mg 7-30 08-30 Suppositor ity of suppository 00:00: 04:59 y into [place] 00 :00 rectum Medical every 6 Branch (six) hours as needed for Nausea and Vomiting (N/V) for up to 30 days. proMETHazin 2021- No [id number] 12.5mg Take 0.5 Univers e 25 mg 7-30 08-30 tablets by ity o f tablet 00:00: 04:59 mouth [place] 00 :00 every 4 Medical (four) Branch hours as needed for Nausea and Vomiting (N/V) for up to 30 days. proMETHazin 2021- No [id number] 12.5mg Insert 1 Univers e 12.5 mg 7-30 08-30 Suppositor ity of suppository 00:00: 04:59 y into [place] 00 :00 rectum Medical every 6 Branch (six) hours as needed for Nausea and Vomiting (N/V) for up to 30 days. proMETHazin 2021- No [id number] 12.5mg Take 0.5 Univers e 25 mg 7-30 08-30 tablets by ity o f tablet 00:00: 04:59 mouth [place] 00 :00 every 4 Medical (four) Branch hours as needed for Nausea and Vomiting (N/V) for up to 30 days. proMETHazin 2021- No [id number] 12.5mg Insert 1 Univers e 12.5 mg 7-30 08-30 Suppositor ity of suppository 00:00: 04:59 y into [place] 00 :00 rectum Medical every 6 Branch (six) hours as needed for Nausea and Vomiting (N/V) for up to 30 days. proMETHazin 2021- No [id number] 12.5mg Take 0.5 Univers e 25 mg 7-30 08-30 tablets by ity o f tablet 00:00: 04:59 mouth [place] 00 :00 every 4 Medical (four) Branch hours as needed for Nausea and Vomiting (N/V) for up to 30 days. proMETHazin 2021- No [id number] 12.5mg Insert 1 Univers e 12.5 mg 7-30 08-30 Suppositor ity of suppository 00:00: 04:59 y into [place] 00 :00 rectum Medical every 6 Branch (six) hours as needed for Nausea and Vomiting (N/V) for up to 30 days. proMETHazin 2021- No [id number] 12.5mg Take 0.5 Univers e 25 mg 02-10 0830 tablets by ity o f tablet 00:00: 04:59 mouth [place] 00 :00 every 4 Medical (four) Branch hours as needed for Nausea and Vomiting (N/V) for up to 30 days. insulin NPH 2021- No [id number] 50U inject 50 Univers and regular 02-10 08-12 Units ity of human 70-30 00:00: [...] ity of (DILAUDID) 16:54: 16:53 s, Q6HPRN, [place] injection 1 28 :28 Starting Medi efrain mg on Sat Branch 02/09/22 at 1154, Until 02/11/22 at 1153, Routine, Breakthrou gh pain only
Us e approved by (Faculty): ADC PROVIDER insulin 2021- No 35U 35 Units, Univ ers glargine 02-09 Subcutaneo ity of (LANTUS 14:00: 14:02 us, DAILY, [place] U-100) 00 :21 First dose Medical injection (after Branch 35 Units last modificati on) on Sat02/09/22 at 0900, Until Discontinu ed, Routine NaCl 0.9% Yes 10mL 10 mL, Univer s (NS) 02-09 Slow IV ity of injection 01:04: Push, PRN, [place] 10 mL 34 Starting Medical on [place] Branch 02/08/22 at 2004, Until Discontinu ed, Routine, line maintenanc e lidocaine Yes 5mL 5 mL, Univers 1% (PF) 02-09 Subcutaneo ity of (XYLOCAINE) 01:04: [place], PRN, [place] injection 5 34 Starting Medi efrain mL on [facility] Branch 02/08/22 at 2004, Until Discontinu ed, Routine, Local anesthesia nystatin 0 Yes Topical, Unive rs (NYSTOP) 02-09 BID, First ity o f powder 01:00: dose on [place] 00 [facility] Medical 02/08/22 at Branch 2000, Until Discontinu ed, Routine Sliding Yes Subcutaneo Univ ers Scale -28 us, TID ity of Insulin - 22:00: MEALS+HS, [place] Lispro 00 First dose Medical (HumaLOG) + (after Branch Fsbg last Testing modificati on) on [facility] 02/08/22 at 1700, Until Discontinu ed, Routine insulin 0 2021- No 3U 3 Units, Unive rs lispro 02-08 07 Subcutaneo ity of (human) 22:00: 14:02 , TID [place] (HumaLOG 00 :21 MEALS, Medical U-100) First dose Branch injection 3 on [facility] Units 02/08/22 at 1700, Until Discontinu ed, Routine mupirocin Yes Univers (BACTROBAN 02-08 ity of OINT) 2 % 21:45: [place] skin 00 Medical ointment Branch collagenase Yes Topical Uni vers (SANTYL) 02-08 (Apply To ity of ointment 21:45: Affected 00 Areas), Medical DAILY, Branch First dose (after last modificati on) on [facility] 02/08/22 at 1645, Until Discontinu ed, Routine HYDROcodone 0 Yes 1{tbl} 1 tablet, Univers -acetaminop 02-08 Oral, ity of hen (NORCO 19:54: Q6HPRN, [place] 5) 5-325 mg 07 Starting Medi efrain tablet 1 on [facility] Branch tablet 02/08/22 at 1454, Until Discontinu ed, Routine, Pain (scale 4-6) HYDROcodone 0 Yes 1{tbl} 1 tablet, Univers -acetaminop 02-08 [...] t;Duration of therapy: 72 hours NaCl 0.45% No 1000mL at 150 Un ela (1/2NS) IV 02-08 mL/hr, ity of infusion 02:15: 13:47 1,000 mL, [place] 1,000 mL 00 :19 IV Medical Infusion, Branch CONTINUOUS , Starting on 02/07/22 at 2115, Until Lib[place] 02/08/22 at 0847, Routine proMETHazin No 12.5mg 12.5 mg, Univers e 02-08 IV ity of (PHENERGAN) 02:15: 01:35 [place], [place] 12.5 mg in 00 :00 ONCE, 1 Medica l NaCl 0.9% dose, On Branch (NS) 50 mL Wed IV 02/07/22 at piggyback 211, Routine insulin 2021- No 10U 10 Units, [facility] ers lispro 02-08 Subcutaneo ity of (human) [...] months HYDROmorphO 2021- No 1mg 1 mg, [facility] ers ne 02-08 Intravenou ity of (DILAUDID) 01:01: 19:45 s, Q4HPRN, [place] injection 1 21 :38 Starting Medi efrain mg on Wed Branch 02/07/22 at 2000, Until Libra 02/08/22 at 1445, Routine, Pain (scale 7-10)
U se approved by (Faculty): ADC PROVIDER Sliding 2021- No Subcutaneo Uni vers Scale 02-08 us, Q3H, ity of Insulin - 01:00: 18:35 First dose [place] Lispro 00 :13 (after Medical (HumaLOG) + last Branch Fsbg modificati Testing on) on Sat02/07/22 at 2000, Until Discontinu ed, Routine pantoprazol Yes 40mg 40 mg, [facility] ers e 02-08 Oral, ity of (PROTONIX) 00:30: DAILY, [place] EC tablet 00 First dose Medi efrain 40 mg on Wed Branch 02/07/22 at 1930, Until Discontinu ed, [...] on Sat Medical (HumaLOG) + 02/07/22 at [facility] Fsbg 1700, Testing Until Discontinu ed, Routine acetaminoph Yes 1000mg 1,000 mg, Univers en 02-07 Oral, Q8H, ity of (TYLENOL) 21:15: First dose [place] tablet 00 on Sat Medical 1,000 mg 02/07/22 at [facility] h 1615, Until Discontinu ed, Routine FENTanyl PF 2021- No 50ug 50 mcg, Un eal (SUBLIMAZE 02-07 Slow IV ity o f [...] doses, Medical mEq/100 mL First dose Bra [facility] RTU IVPB 20 on Sat mEq [...] 1927, 1,000 mL, at 200 mL/hr KCL 2021-2021- No IV Univers (POTASSIUM 02-07 Infusion, ity [...] at 0900, Until Discontinu ed, Routine fluconazole 2021- No 200mg at 100 Un ela (DIFLUCAN) 02-07 07-28 mL/hr, IV ity of [place]gy[place] 13:45: 00:25 [place], [place] 200 mg 00 :36 Q24H ABX, Medical First dose Branch on Sat02/07/22 at 0845, Until Discontinu ed, [place]
Do Not Refrigerat e.
NORepinephr 2021- No .05ug/k 0.05-1.5 Univers ine 4 mg in 02-07 0727 g/min mcg/kg/min ity of 0.9% NaCl 12:21: [...] maximum allowed dose, contact prescriber .
potassium 2021- No 10meq 10 mEq, IV Univers chloride in [...] 50 mcg dose, On Branch 02/06/22 at 2315, Routine cefTRIAXone 2021- No 1000mg 1,000 mg, Univers (ROCEPHIN) 02-07 Intravenou it y of 1,000 mg in 04:00: 06:06 s, ONCE, 1 [place] NaCl 0.9% 00 :00 dose, On Medica [...] Subcutaneo ity o f human 01:30: 00:37 , ONCE, [place] (HUMULIN R) 00 :00 1 dose, On Me dical injection Tu Branch 10 Units 02/06/22 at 2030, Routine [...] 02/06/22 at 1930, STAT iopamidol 2021- No [id number] 65mL 65 mL, Univers (ISOVUE 01-27 219728 Intravenou ity of 370-500 mL) 02:29: 02:45 s, ONCE, 1 [place] injection 00 :00 dose, On Medica l 65 mL Fri Branch 01/26/22 at 2145, Routine FENTanyl PF 2021- No 150ug 150 mcg, Univers (SUBLIMAZE 01-27 Slow IV ity o f (PF)) 01:32: 01:44 Push, [place] injection 00 :00 ONCE, 1 Medical 150 mcg dose, On Branch 01/26/22 at 2045, Routine FENTanyl PF 2021- No 50ug 50 mcg, Un ela (SUBLIMAZE 01-27 Slow IV ity o f (PF)) 00:30: 23:32 Push, [place] injection 00 :00 ONCE, 1 Medical 50 mcg dose, On Branch 01/26/22 at 1930, Routine insulin 2021- No 10U 10 Units, Univ ers regular 01-27 Subcutaneo ity o f human 00:30: 23:28 us, ONCE, [place] (HUMULIN R) 00 :00 1 dose, On Me dical injection Fri Branch 10 Units 01/26/22 at 1930, Routine clindamycin 2021- No [id number] 600mg Take 2 Univers 300 mg 01-26 [id number] capsules ity of capsule 00:00: 04:59 by mouth 4 [place] 00 :00 (four) Medical times Branch daily for 7 days. clindamycin 2021- No [id number] 600mg Take 2 Univers 300 mg 01-26 [id number] capsules ity of capsule 00:00: 04:59 by mouth 4 [place] 00 :00 (four) Medical times Branch daily for 7 days. insulin NPH 2021- No 8U 8 Units, U nivers and regular 01-1706 Subcutaneo i ty of human 70-30 12:30: 11:30 us, ONCE, [place] (70-30 00 :00 1 dose, On Medical U-100 01/17/22 Branch INSULIN) at 0730, 100 unit/mL [place] (70-30) injection 8 Units insulin Yes [id number] 20U inject 20 U nivers glargine 7-02 Units ity of 100 unit/mL 00:00: under the [place] injection 00 skin Medical daily. Branch insulin Yes [id number] 20U inject 20 U nivers glargine 7-02 Units ity of 100 unit/mL 00:00: under the [place] injection 00 skin Medical daily. Branch insulin Yes [id number] 20U inject 20 U nivers glargine 7-02 Units ity of 100 unit/mL 00:00: under the [place] injection 00 skin Medical daily. Branch insulin Yes [id number] 20U inject 20 U nivers glargine 7-02 Units ity of 100 unit/mL 00:00: under the [place] injection 00 skin Medical daily. Branch insulin 2021- No [id number] 20U inject 20 Univers glargine 702 07-30 Units ity of 100 unit/mL 00:00: 00:00 under the [place] injection 00 :00 skin Medical daily. Branch insulin 2021- No [id number] 20U inject 20 Univers glargine 7-02 07-30 Units ity of 100 unit/mL 00:00: 00:00 under the [place] injection 00 :00 skin Medical daily. Branch insulin Yes 20U 20 Units, Unive rs glargine 01-12 Subcutaneo ity o f (LANTUS 14:00: us, DAILY, [place] U-100) 00 First dose Medical injection (after Branch 20 Units last modificati on) on Sat01/12/22 at 0900, Until Discontinu ed, Routine insulin 2021- No [id number] 26U inject 26 Univers lispro, 01-12 08- Units ity of human, 100 00:00: 04:59 under the [place] unit/mL 00 :00 skin 3 Medical injection (three) Branch times daily before meals for 30 days. insulin 2021- No [id number] 26U inject 26 Univers lispro, 01-12 08- Units ity of human, 100 00:00: 04:59 under the [place] unit/mL 00 :00 skin 3 Medical injection (three) Branch times daily before meals for 30 days. insulin 2021- No [id number] 26U inject 26 Univers lispro, 01-12 08- Units ity of human, 100 00:00: 04:59 under the [place] unit/mL 00 :00 skin 3 Medical injection (three) Branch times daily before meals for 30 days. insulin 2021- No [id number] 26U inject 26 Univers lispro, 01-12- Units ity of human, 100 00:00: 04:59 under the [place] unit/mL 00 :00 skin 3 Medical injection (three) Branch times daily before meals for 30 days. insulin 2021- No [id number] 26U inject 26 Univers lispro, 01-12 07-30 Units ity of human, 100 00:00: 00:00 under the [place] unit/mL 00 :00 skin 3 Medical injection (three) Branch times daily before meals for 30 days. insulin 2021- No [id number] 26U inject 26 Univers lispro, 01-12 07-30 Units ity of human, 100 00:00: 00:00 under the [place] unit/mL 00 :00 skin 3 Medical injection (three) Branch times daily before meals for 30 days. insulin Yes 26U 26 Units, Unive rs lispro 30 Subcutaneo ity of (human) 22:15: [place] (HumaLOG 00 First dose Medic al U-100) (after Branch injection last 26 Units modificati on) on Libra 01/11/22 at 1715, Until Discontinu ed, Routine insulin 2021- No 22U 22 Units, Univ ers lispro 01-11 06-30 Subcutaneo ity of (human) 16:30: 21:36 [place] (HumaLOG 00 :36 First dose Medic al U-100) (after Branch injection last 22 Units modificati on) on [place] 01/11/22 at 1130, Until Discontinu ed, Routine insulin 2021- No 10U 10 Units, Univ ers glargine 01-11 Subcutaneo ity of (LANTUS 14:00: 17:40 us, DAILY, [place] U-100) 00 :01 First dose Medical injection on [place] Branch 10 Units 01/11/22 at 0900, Until Discontinu ed, Routine insulin Yes 52U 52 Units, Unive rs glargine 01-11 Subcutaneo ity o f (LANTUS 02:00: us, [...] at 1200, Until Discontinu ed, Routine insulin 2021- No 18U 18 Units, Univ ers lispro [...] mL First dose Bra nch MINI-BAG on Sat01/10/22 at 0800, Until Discontinu [...] Units 0730, Until Discontinu ed, Routine HYDROmorpho No 1mg 1 mg, Slow Univers ne 01-10 0701 IV Push, ity of (DILAUDID) 11:32: 11:31 Q6HPRN, [place] injection 1 00 :00 Starting Medi efrain mg on Sat Branch 01/10/22 at 0632, Until Sat01/12/22 at 0631, Routine, Pain (scale 7-10)
U se approved by (Faculty): [facility] PROVIDER NaCl 0.9% No 1000mL at [...] 01-10 Oral, ity of (TYLENOL) 10:52: Q6HPRN, [place] tablet 650 33 Starting Medic al mg [...] Routine insulin 2021- No 10U 10 Units, [facility] ers regular 01-10 Slow IV ity of human 07:00: 05:53 Push, [place] (HUMULIN R) 00 :00 ONCE, 1 Medic al injection dose, On Branch 10 Units Sat01/10/22 at 0200, STAT FENTanyl PF 2021- No 50ug 50 mcg, Un ela (SUBLIMAZE 01-10 Slow IV ity o f (PF)) 04:15: 04:04 Push, [place] injection 00 :00 ONCE, 1 Medical 50 mcg dose, On Branch Sat01/09/22 at 2315, STAT NaCl 0.9% No 1000mL at 999 Uni vers (NS) bolus 01-10 mL/hr, ity of infusion 04:00: 05:53 1,000 mL, [place] 1,000 mL 00 :00 IV Medical Infusion, Branch ONCE, 1 dose, On Sat01/09/22 at 2300, STAT insulin 2021- No 10U 10 Units, [facility] regular 01-10 Slow IV ity of human 04:00: 03:48 Push, [place] (HUMULIN R) 00 :00 ONCE, 1 Medic al injection dose, On Branch 10 Units Sat01/09/22 at 2300, STAT amLODIPine 2021-2021- No [id number] 10mg Take 1 Univers 10 mg 6-26 07-30 tablet by ity of tablet 00:00: 00:00 mouth [place] 00 :00 daily for Medical 30 days. Branch amLODIPine 2021- No [id number] 10mg Take 1 Univers 10 mg 6-26 07-30 tablet by ity of tablet 00:00: 00:00 mouth [place] 00 :00 daily for Medical 30 days. Branch amLODIPine 2021- No [id number] 10mg Take 1 Univers 10 mg 6-26 07-27 tablet by ity of tablet 00:00: 04:59 mouth [place] 00 :00 daily for Medical 30 days. Branch amLODIPine 2021- No [id number] 10mg Take 1 Univers 10 mg 6-26 07-27 tablet by ity of tablet 00:00: 04:59 mouth [place] 00 :00 daily for Medical 30 days. [place] amLODIPine 2021- No [id number] 10mg Take 1 Univers 10 mg 6-26 07-27 tablet by ity of tablet 00:00: 04:59 mouth [place] 00 :00 daily for Medical 30 days. [place] amLODIPine 2021- No [id number] 10mg Take 1 Univers 10 mg 6-26 07-27 tablet by ity of tablet 00:00: 04:59 mouth [place] 00 :00 daily for Medical 30 days. [place] amLODIPine 2021- No [id number] 10mg Take 1 Univers 10 mg 6-26 07-27 tablet by ity of tablet 00:00: 04:59 mouth [place] 00 :00 daily for Medical 30 days. [place] amLODIPine 2021- No [id number] 10mg Take 1 Univers 10 mg 6-26 07-27 tablet by ity of tablet 00:00: 04:59 mouth [place] 00 :00 daily for Medical 30 days. [place] amLODIPine 2021- No [id number] 10mg Take 1 Univers 10 mg 6-06 02-27 tablet by ity of tablet 00:00: 04:59 mouth [place] 00 :00 daily for Medical 30 days. [place] HYDROmorpho 2021- No .5mg 0.5 mg, Un ela ne 01-06- Slow IV ity of (DILAUDID) 18:00: 17:11 Push, [place] injection 00 :00 ONCE, 1 Medical 0.5 mg dose, On Branch 01/06/22 at 1300, Routine
Use approved by (Faculty): ADC PROVIDER cefTRIAXone Yes 1000mg 1,000 mg, Univers (ROCEPHIN) 01-06 IV ity of 1,000 mg in 15:00: Piggyback, [place] NaCl 0.9% 00 Q24H ABX, Medic al (NS) 50 mL First dose [facility] MINI-BAG on 01/06/22 at 1000, Until Discontinu ed, Administer over 30 Minutes, 50 mL
Reas on for Anti-Infec tive: Documented Infection< br>Documen lester Infection Site: Urine
D uration of Therapy: 7 days fluconazole Yes 200mg 200 mg, Un ela (DIFLUCAN) 6-25 Oral, ity of tablet 200 14:00: DAILY, [place] mg 00 First dose Medical on Sat Branch 01/06/22 at 0900, Until Discontinu ed, SAHARA
[...] ORAL) 19 :00 (twelve) Medica l hours. [place] insulin No 10U 10 Units, [facility] ers lispro 01-06 Subcutaneo ity of (human) 07:00: 06:53 us, ONCE, [place] (HumaLOG 00 :00 1 dose, On Medic al U-100) Sat Branch injection 01/06/22 at 10 Units 0200, Routine glucagon Yes 1mg 1 mg, Univers (GLUCAGEN 01-06 Intramuscu ity of DIAGNOSTIC 05:50: lar, PRN, [place] KIT) 51 Starting Medical injection 1 on [facility] Branch mg 01/06/22 at 0050, Until Discontinu ed, SAHARA, Blood Glucose < or = 70 mg/dL and patient is unable to swallow or has mental changes. dextrose Yes 250mL 250 mL, IV [place] ela 10% (D10W) 01-06 Infusion, ity of bolus 05:50: PRN - SEE [place] infusion 51 INSTRUCTIO Medic al 250 mL [...] Subcutaneo ity o f (LANTUS 02:00: us, [facility], [place] U-100) 00 First dose Medical injection on Sat Branch 52 Units 01/05/22 at 2100, Until Discontinu ed, Routine Sliding 2021- No Subcutaneo Uni vers Scale 01-06 06-25 us, TID ity of Insulin - 02:00: 05:50 MEALS+HS, [place] Lispro 00 :40 First dose Medical (HumaLOG) + on Sat Branch Fsbg 01/05/22 at Testing 2100, Until Discontinu ed, Routine ciprofloxac 2021- No [id number] 500mg Take 1 Univers in HCl 500 01-06- tablet by ity of mg tablet 00:00: 04:59 mouth [place] 00 :00 every 12 Medical (twelve) Branch hours for 10 days. ciprofloxac 2021- No [id number] 500mg Take 1 Univers in HCl 500 01-06- tablet by ity of mg tablet 00:00: 04:59 mouth [place] 00 :00 every 12 Medical (twelve) Branch hours for 10 days. ciprofloxac 2021- No [id number] 500mg Take 1 Univers in HCl 500 01-06- tablet by ity of mg tablet 00:00: 04:59 mouth [place] 00 :00 every 12 Medical (twelve) Branch hours for 10 days. HYDROmorpho 2021- No [id number] 4mg Take 1 Uni vers ne 4 mg 01-06 tablet by ity of tablet 00:00: 04:59 mouth [place] 00 :00 every 12 Medical (twelve) Branch hours for 7 days. Indication s: acute pain HYDROmorpho 2021- No [id number] 4mg Take 1 Uni vers ne 4 mg 01-06 tablet by ity of tablet 00:00: 04:59 mouth [place] 00 :00 every 12 Medical (twelve) Branch hours for 7 days. Indication s: acute pain HYDROmorpho 2021-2021- No [id number] 4mg Take 1 Uni vers ne 4 mg 01-06 tablet by ity of tablet 00:00: 04:59 mouth [place] 00 :00 every 12 Medical (twelve) Branch hours for 7 days. Indication s: acute pain HYDROmorpho 2021-0 2021- No [id number] 4mg Take 1 Uni vers ne 4 mg 01-06 tablet by ity of tablet 00:00: 04:59 mouth [place] 00 :00 every 12 Medical (twelve) Branch hours for 7 days. Indication s: acute pain ciprofloxac 2021- No [id number] 500mg Take 1 Univers in HCl 500 [...] 00 :00 dose, On Medi efrain mg Sat01/05/22 at 1715, Routine
Use approved by (Faculty): ADC PROVIDER enoxaparin Yes 40mg 40 mg, Unive rs (LOVENOX) 01-05 Subcutaneo ity of injection 22:00: us, DAILY, [place] 40 mg 00 First dose Medical on Sat Branch 01/05/22 at 1700, Until Discontinu ed, Routine glucagon Yes 1mg 1 mg, Univers (GLUCAGEN 01-05 Intravenou ity of DIAGNOSTIC 21:57: s, PRN - [place] KIT) 53 SEE Medical injection 1 INSTRUCTIO Br anch mg NS, Starting on Sat01/05/22 at 1657, Until Discontinu ed, Routine, hypoglycem ia glucagon Yes 1mg 1 mg, Univers (GLUCAGEN 01-05 Intramuscu ity of DIAGNOSTIC 21:57: lar, PRN, [place] KIT) 44 Starting Medical injection 1 on Sat Branch mg 01/05/22 at 1657, Until Discontinu ed, [place], Blood Glucose < or = 70 mg/dL and patient is unable to swallow or has mental changes. HYDROmorpho 0 Yes 4mg 4 mg, Unive rs ne 01-05 Oral, ity of (DILAUDID) 13:00: Q12H, [place] tablet 4 mg 00 First dose Me dical on Sat Branch 01/05/22 at 0800, Until Discontinu ed insulin Yes 15U 15 Units, Unive rs lispro 01-05 Subcutaneo ity of (human) 12:30: us, [place] (HumaLOG 00 First dose Medic al U-100) on Sat Branch injection 01/05/22 at 15 Units 0730, Until Discontinu ed, Routine amLODIPine Yes 10mg 10 mg, Unive rs (NORVASC) 01-05 Oral, ity of tablet 10 08:45: DAILY, [place] mg 00 First dose Medical on Sat Branch 01/05/22 at 0345, Until Discontinu ed, Routine ertapenem 2021- No 1000mg 1,000 mg, Univers (INVANZ) 01-05 06-25 IV ity of 1,000 mg in 08:45: 13:51 Piggyback, [place] NaCl 0.9% 00 :26 Q24H ABX, Medic al (NS) 50 mL First dose Bra nch MINI-BAG on Sat01/05/22 at 0345, Until Discontinu ed, Administer over 30 Minutes, 50 mL
Reas on for Anti-Infec tive: Empiric Therapy for Suspected Infection< br>Empiric Therapy Site: Urine
D uration of therapy: 7 days
Re stricted use approved by: History of ESBL infection in past 3 months hydralAZINE Yes 10mg 10 mg, Univ ers (APRESOLINE 24 Slow IV ity o f ) injection 08:33: Push, [place] 10 mg 28 Q6HPRN, Medical Starting Branch on Sat01/05/22 at 0333, Until Discontinu ed, Routine, DBP=>10 0; SBP=>160, For SBP > 160 acetaminoph Yes 650mg 650 mg, Un ela en 01-05 Oral, ity of (TYLENOL) 07:37: Q6HPRN, [place] tablet 650 37 Starting Medic al mg on Fri Branch 01/05/22 at 0237, Until Discontinu ed, Routine, Pain (scale 1-3) iopamidol 2021- No [id number] 100mL 100 mL, Univers (ISOVUE 01-05 Intravenou [...] ity o f (PF)) 04:15: 04:00 Push, [place] injection 00 :00 ONCE, 1 [...] ONE ORAL) 08 (twelve) Medica l hours. [place] magnesium Yes 400mg 400 mg, Univ ers oxide 6-10 Oral, ity of (MAG-OX 14:00: DAILY, [place] 400) tablet 00 First dose Me dical 400 mg on Sat [place] 12/22/21 at 0900, Until Discontinu ed, Routine HYDROmorpho 2021- No 1mg 1 mg, Slow Univers ne 6-10 06-10 IV Push, ity of (DILAUDID) 05:15: 04:42 ONCE, 1 [place] injection 1 00 :00 dose, On Medi efrain mg Sat [place] 12/22/21 at 0015, Routine
Use approved by (Faculty): ADC PROVIDER acetaminoph Yes 1000mg 1,000 mg, Univers en 6-10 Oral, Q8H, ity of (TYLENOL) 03:00: First dose [place] tablet 00 on [place] Medical 1,000 mg 12/21/21 at Branch 2200, Until Discontinu ed, Routine insulin Yes [id number] 52U inject 52 U nivers glargine 6-10 Units ity of 100 unit/mL 00:00: under the [place] injection 00 skin at Medical bedtime. [place] insulin 0 Yes 52U inject 52 U nivers glargine 6-10 Units ity of 100 unit/mL 00:00: under the [place] injection 00 skin at Medical bedtime. [place] insulin 0 Yes 52U inject 52 U nivers glargine 6-10 Units ity of 100 unit/mL 00:00: under the [place] injection 00 skin at Medical bedtime. [place] insulin 0 Yes [id number] 52U inject 52 U nivers glargine 6-10 Units ity of 100 unit/mL 00:00: under the [place] injection 00 skin at Medical bedtime. [place] insulin 0 Yes [id number] 52U inject 52 U nivers glargine 6-10 Units ity of 100 unit/mL 00:00: under the [place] injection 00 skin at Medical bedtime. Branch insulin 2021-0 Yes [id number] 52U inject 52 U nivers glargine 6-10 Units ity of 100 unit/mL 00:00: under the [place] injection 00 skin at Medical bedtime. Branch insulin 2021-0 Yes [id number] 52U inject 52 U nivers glargine 6-10 Units ity of 100 unit/mL 00:00: under the [place] injection 00 skin at Medical bedtime. Branch insulin 2021-0 Yes [id number] 52U inject 52 U nivers glargine 6-10 Units ity of 100 unit/mL 00:00: under the [place] injection 00 skin at Medical bedtime. Branch insulin 2021-0 2021- No [id number] 52U inject 52 Univers glargine 6-10 07-30 Units ity of 100 unit/mL 00:00: 00:00 under the [place] injection 00 :00 skin at Medical bedtime. Branch insulin 2021-0 2021- No [id number] 52U inject 52 Univers glargine 6-10 07-30 Units ity of 100 unit/mL 00:00: 00:00 under the [place] injection 00 :00 skin at Medical bedtime. Branch Insulin 2021-2021- No [id number] Use as Uni vers Safety 12-22 directed ity of [place], 00:00: 04:59 [place] Disp, 29 00 :00 Medical gauge x Branch 3/16" N[place] Insulin 2021-2021- No [id number] Use as Uni vers Safety 12-22 directed ity of [place], 00:00: 04:59 [place] Disp, 29 00 :00 Medical gauge x Branch 3/16" Ndle Insulin 2021-0 2021- No [id number] Use as Uni vers Safety 12-22 directed ity of [place], 00:00: 04:59 [place] Disp, 29 00 :00 Medical gauge x Branch 3/16" Ndle Insulin 2021-0 2021- No [id number] Use as Uni vers Safety 12-22 directed ity of [place], 00:00: 04:59 [place] Disp, 29 00 :00 Medical gauge x Branch 3/16" Ndle Insulin 2022021- No [id number] Use as Uni vers Safety 12-22 directed ity of [place], 00:00: 04:59 [place] Disp, 29 00 :00 Medical gauge x Branch 3/16" Ndle Insulin 2021- No [id number] Use as Uni vers Safety 12-22 directed ity of [place], 00:00: 04:59 [place] Disp, 29 00 :00 Medical gauge x Branch 3/16" Ndle Insulin 2021- No [id number] Use as Uni vers Safety 12-22 directed ity of [place], 00:00: 04:59 [place] Disp, 29 00 :00 Medical gauge x Branch 3/16" Ndle fluconazole 2021- No [id number] 200mg Take 1 Univers 200 mg 12-22 [...] Subcutaneo ity o f (LANTUS 02:00: us, [facility], [place] U-100) 00 First dose Medical injection on Sat Branch 30 Units 12/20/21 at 2100, Until Discontinu ed, Routine HYDROmorpho 2021- No .5mg 0.5 mg, Un ela ne 12-20 06-09 Slow IV ity of (DILAUDID) 16:28: 19:33 [...] ed, Routine insulin No 10U 10 Units, Univ ers glargine 12-20 Subcutaneo ity of (LANTUS [...] ADC PROVIDER HYDROmorpho No 4mg 4 mg, Univ ers ne 12-20 Oral, ity of (DILAUDID) 08:40: 16:28 [id number], [place] tablet 4 mg 04 :14 Starting Medi efrain on Sat Branch 12/20/21 at 0340, Until Sat12/20/21 at 1128, Routine, Pain (scale 7-10) HYDROmorpho 2021- No 1mg 1 mg, Slow Univers ne 12-20 IV Push, ity of (DILAUDID) 06:15: 05:41 ONCE, 1 [place] injection 1 00 :00 dose, On Medi efrain mg 12/20/21 Branch at 0115, Routine
Use approved by (Faculty): ADC PROVIDER aztreonam 2021- No 1000mg 1,000 mg, Univers (AZACTAM) 12-20 IV ity of 1,000 mg in 05:30: 16:58 Piggyback, [place] NaCl 0.9% 00 :42 Q8H ABX, Medica [...] 1000mL at 125 Uni vers (NS) IV 12-2008 mL/hr, IV ity of infusion 04:30: 16:28 [...] Routine, For Blood glucose < 70 proCHLORper 2022-0 Yes 10mg 10 mg, Univ ers azine [...] No .1U/kg 13.7 Units U nivers regular 12-20 (rounded ity of human 01:15: 01:51 from 13.74 [place] (HUMULIN R) 00 :00 Units = Medic [...] 4ug Take 4 mcg Univers ne HCl 12-19 by mouth ity of (HYDROMORPH 23:17: every 12 [place] ONE ORAL) 17 (twelve) Medica l hours. Branch hydromorpho Yes 4ug Take 4 mcg Univers ne HCl 12-18 by mouth ity of (HYDROMORPH 18:29: every 12 [place] ONE ORAL) 31 (twelve) Medica l hours. Branch insulin Yes 15U inject 15 U nivers lispro, 6-06 Units ity of human, 100 00:00: under the [place] unit/mL 00 skin 3 Medical injection (three) Branch times daily before meals. insulin Yes 15U inject 15 U nivers lispro, 6-06 Units ity of human, 100 00:00: under the [place] unit/mL 00 skin 3 Medical injection (three) Branch times daily before meals. insulin Yes 15U inject 15 U nivers lispro, 6-06 Units ity of human, 100 00:00: under the [place] unit/mL 00 skin 3 Medical injection (three) Branch times daily before meals. insulin Yes 15U inject 15 U nivers [...] Branch times daily before meals. insulin Yes [id number] 52U inject 52 U nivers glargine 6-06 Units ity of 100 unit/mL 00:00: under the [place] injection 00 skin at Medical bedtime. Branch insulin Yes [id number] 15U inject 15 U nivers lispro, 6-06 Units ity of human, 100 00:00: under the [place] unit/mL 00 skin 3 Medical injection (three) Branch times daily before meals. insulin Yes [id number] 15U inject 15 U nivers lispro, 6-06 Units ity of human, 100 00:00: under the [place] unit/mL 00 skin 3 Medical injection (three) Branch times daily before meals. insulin Yes [id number] 15U inject 15 U nivers lispro, 6-06 Units ity of human, 100 00:00: under the [place] unit/mL 00 skin 3 Medical injection (three) Branch times daily before meals. insulin 2021- No [id number] 15U inject 15 Univers lispro, 6- 07-30 Units ity of human, 100 00:00: 00:00 under the [place] unit/mL 00 :00 skin 3 Medical injection (three) Branch times daily before meals. insulin 2021- No [id number] 15U inject 15 Univers lispro, 6-06 07-30 Units ity of human, 100 00:00: 00:00 under the [place] unit/mL 00 :00 skin 3 Medical injection (three) Branch times daily before meals. insulin 2021- No [id number] 52U inject 52 Univers glargine 12-18 06-10 Units ity of 100 unit/mL 00:00: 00:00 under the [place] injection 00 :00 skin at Medical bedtime. Branch HYDROmorpho 2021- No .5mg 0.5 mg, Un ela ne 12-17-06 Slow IV ity of (DILAUDID) 18:15: 18:14 Push, [place] injection 00 :00 Q8HPRN, Medical 0.5 mg Starting Branch on 12/17/21 at 1315, Until 12/18/21 at 1314, Routine, Pain (scale 7-10)
U se approved by (Faculty): [facility] PROVIDER insulin 0 Yes .4U/kg/ 52 Units Uni vers glargine [...] 7-10)
U se approved by (Faculty): [facility] PROVIDER Sliding Yes Subcutaneo Univ ers Scale 6-04 us, Q4H, ity of Insulin - 17:00: First dose [place] lispro 00 on [facility] Medical (humaLOG) + 12/16/21 at [facility] Fsbg 1200, Testing Until Discontinu ed, Routine [...] at 2122, Routine, Pain (scale 7-10) potassium 2021-2021- No 20meq 20 mEq, IV Univers chloride 20 12-1504 Piggyback, i ty of mEq/100 mL 23:45: 03:11 Q2H, 2 [place] (KCL) 20 00 :00 doses, Medical mEq/100 mL First dose Bra nch RTU IVPB 20 on Sat mEq 12/15/21 at 1845, Last dose on Sat12/15/21 at 2000, 100 mL HYDROmorpho 2021- No 1mg 1 mg, Slow Univers ne 12-1504 IV Push, ity of (DILAUDID) 18:08: 14:45 [...] 40 mg 00 First dose Medical on Fri Branch 12/15/21 at 0900, Until Discontinu ed, Routine lactobacill Yes .5mg 0.5 mg, Uni vers us 12-15 Oral, BID, ity of acidophilus 13:00: First dose [place] tablet 0.5 00 on Fri Medical mg 12/15/21 at Branch 0800, Until Discontinu ed, Routine docusate Yes 100mg 100 mg, Unive rs (COLACE) 12-15 Oral, BID, ity o f capsule 100 13:00: First dose [place] mg 00 on Fri Medical 12/15/21 at Branch 0800, Until Discontinu ed, Routine cefTRIAXone No 1000mg 1,000 mg, Univers (ROCEPHIN) 12-15 IV ity of 1,000 mg in 11:30: 16:04 Piggyback, [place] NaCl 0.9% 00 :40 Q24H ABX, Medic al (NS) 50 mL First dose Bra vah MINI-BAG on 12/15/21 at 0630, Until Discontinu [...] 12-15 Oral, ity of (TYLENOL) 11:04: Q6HPRN, [place] tablet 650 03 Starting Medic al mg [...] - SEE Branch INSTRUCTIO NS, Starting on 12/15/21 at 0521, Until 12/16/21 at 0945, SAHARA, Blood glucose control acetaminoph No 1000mg 1,000 mg, Univers en 12-15 Oral, ity of (TYLENOL) 08:45: 07:36 ONCE, 1 [place] tablet 00 :00 dose, On Medical 1,000 mg 12/15/21 Branc h at 0345, SAHARA insulin 2021- No 8U 8 Units, Unive rs regular 12-15 Slow IV ity of human 08:15: 07:13 Push, [place] (HUMULIN R) 00 :00 ONCE, 1 Medic al injection 8 dose, On Bran ch Units 12/15/21 at 0315, Routine NaCl 0.9% 2021- No 1000mL at 999 Uni vers (NS) bolus 12-15 mL/hr, ity of infusion 07:15: 06:12 1,000 mL, Tim as 1,000 mL 00 :00 IV Medical Infusion, Branch ONCE, 1 dose, On 12/15/21 at 0215, STAT insulin 2021- No 8U 8 Units, Unive rs regular 12-15 Slow IV ity of human 07:15: 06:21 Push, [place] (HUMULIN R) 00 :00 ONCE, 1 Medic al injection 8 dose, On Bran ch Units 12/15/21 at 0215, STAT iopamidol 2021- No [id number] 100mL 100 mL, Univers (ISOVUE 12-15 Intravenou [...] On Medica l (NS) 50 mL Sat12/15/21 [facility] MINI-BAG at 0000, Administer over 30 Minutes, 50 mL
R estricted use approved by: EMERGENCY DEPARTMENT PRESCRIBER
Reason for Anti-Infec tive: Empiric Therapy for Suspected Infection< br>Empiric Therapy Site: Abdominal< br>Duratio n of therapy: 72 hours proMETHazin No 25mg 25 mg, IV Univers e 12-15 Piggyback, ity of (PHENERGAN) 04:45: 03:49 ONCE, 1 [place] 25 mg in 00 :00 dose, On Medical NaCl 0.9% [facility] 12/14/21 Bran ch (NS) 50 mL at 2345, IV SAHARA piggyback NaCl 0.9% 2021- No 1000mL at 999 Uni vers (NS) bolus 12-15 mL/hr, ity of infusion 04:30: 06:04 1,000 mL, Tim as 1,000 mL 00 :00 IV Medical Infusion, Branch ONCE, 1 dose, On Sat12/14/21 at 2330, STAT FENTanyl PF 2021- No 100ug 100 mcg, Univers (SUBLIMAZE 12-15 Slow IV ity o f (PF)) 03:30: 03:24 Push, [place] injection 00 :00 ONCE, 1 Medical 100 mcg dose, On Branch Sat12/14/21 at 2230, STAT cefTRIAXone Yes 2000mg 2,000 mg, Univers (ROCEPHIN) 5-17 Intramuscu ity of injection 21:00: lar, Q24H, [place] 2,000 mg 00 First dose Medic al on [facility]3] 11/28/21 at 1600, Until Discontinu ed, SAHARA
Re ason for Anti-Infec tive: Documented Infection< br>Documen lester Infection Site: Skin / Soft Tissue
Duration of Therapy: Other (see Comments) hydromorpho Yes 4ug Take 4 mcg Univers ne HCl 5-17 by mouth ity of (HYDROMORPH 17:43: every 12 [place] ONE ORAL) 55 (twelve) Medica l hours. [place] hydromorpho Yes 4ug Take 4 mcg Univers ne HCl 5-17 by mouth ity of (HYDROMORPH 17:43: every 12 [place] ONE ORAL) 55 (twelve) Medica l hours. [place] collagenase Yes [id number] Apply to Univers 250 5-17 affected ity of unit/gram 00:00: area(s) [place] ointment 00 daily. [facility] Branch collagenase Yes [id number] Apply to Univers 250 5-17 affected ity of unit/gram 00:00: area(s) [place] ointment 00 daily. [facility] Branch collagenase Yes [id number] Apply to Univers 250 5-17 affected ity of unit/gram 00:00: area(s) [place] ointment 00 daily. [facility] Branch collagenase Yes [id number] Apply to Univers 250 5-17 affected ity of unit/gram 00:00: area(s) [place] ointment 00 daily. [facility] collagenase Yes [id number] Apply to Univers 250 5-17 affected ity of unit/gram 00:00: area(s) [place] ointment 00 daily. [facility] collagenase Yes [id number] Apply to Univers 250 5-17 affected ity of unit/gram 00:00: area(s) [place] ointment 00 daily. [facility] collagenase 0 Yes [id number] Apply to Univers 250 5-17 affected ity of unit/gram 00:00: area(s) [place] ointment 00 daily. [facility] collagenase 2021- Yes [id number] Apply to Univers 250 5-17 affected ity of unit/gram 00:00: area(s) [place] ointment 00 daily. Medical Branch collagenase 2021-0 Yes [id number] Apply to Univers 250 5-17 affected ity of unit/gram 00:00: area(s) [place] ointment 00 daily. Medical Branch collagenase 2021-0 Yes [id number] Apply to Univers 250 5-17 affected ity of unit/gram 00:00: area(s) [place] ointment 00 daily. Medical Branch collagenase 2021-0 Yes [id number] Apply to Univers 250 5-17 affected ity of unit/gram 00:00: area(s) [place] ointment 00 daily. Medical Branch collagenase 2021-0 Yes [id number] Apply to Univers 250 5-17 affected ity of unit/gram 00:00: area(s) [place] ointment 00 daily. Medical Branch collagenase 2021-0 Yes [id number] Apply to Univers 250 5-17 affected ity of unit/gram 00:00: area(s) [place] ointment 00 daily. Medical Branch collagenase 2021-0 Yes [id number] Apply to Univers 250 5-17 affected ity of unit/gram 00:00: area(s) [place] ointment 00 daily. Medical Branch collagenase 2021-0 Yes [id number] Apply to Univers 250 5-17 affected ity of unit/gram 00:00: area(s) [place] ointment 00 daily. Medical Branch collagenase 2021-0 Yes [id number] Apply to Univers 250 5-17 affected ity of unit/gram 00:00: area(s) [place] ointment 00 daily. Medical Branch collagenase 2021-0 Yes [id number] Apply to Univers 250 5-17 affected ity of unit/gram 00:00: area(s) [place] ointment 00 daily. Medical Branch collagenase 2021-0 Yes [id number] Apply to Univers 250 5-17 affected ity of unit/gram 00:00: area(s) [place] ointment 00 daily. Medical Branch collagenase 2021-0 Yes [id number] Apply to Univers 250 5-17 affected ity of unit/gram 00:00: area(s) [place] ointment 00 daily. Medical Branch collagenase 2021-0 Yes [id number] Apply to Univers 250 5-17 affected ity of unit/gram 00:00: area(s) [place] ointment 00 daily. Medical Branch collagenase 2021-0 Yes [id number] Apply to Univers 250 5-17 affected ity of unit/gram 00:00: area(s) [place] ointment 00 daily. Medical Branch collagenase Yes [id number] Apply to Univers 250 5-17 affected ity of unit/gram 00:00: area(s) [place] ointment 00 daily. Medical Branch collagenase Yes [id number] Apply to Univers 250 5-17 affected ity of unit/gram 00:00: area(s) [place] ointment 00 daily. Medical Branch collagenase Yes [id number] Apply to Univers 250 5-17 affected ity of unit/gram 00:00: area(s) [place] ointment 00 daily. Medical Branch collagenase Yes [id number] Apply to Univers 250 5-17 affected ity of unit/gram 00:00: area(s) [place] ointment 00 daily. Medical Branch collagenase Yes [id number] Apply to Univers 250 5-17 affected ity of unit/gram 00:00: area(s) [place] ointment 00 daily. Medical Branch collagenase Yes [id number] Apply to Univers 250 5-17 affected ity of unit/gram 00:00: area(s) [place] ointment 00 daily. Medical Branch docusate 2021- No [id number] 100mg Take 1 U nivers 100 mg 5-17 -17 capsule by ity of capsule 00:00: 04:59 mouth 2 [place] 00 :00 (two) Medical times Branch daily for 30 days. lactobacill 2021- No [id number] .5mg Take 1 Univers us 5-17 06-17 tablet by ity of acidophilus 00:00: 04:59 mouth 2 [place] 00 :00 (two) Medical times Branch daily for 30 days. sennosides 2021- No [id number] 8.6mg Take 1 Univers 8.6 mg 5-17 -17 tablet by ity of tablet 00:00: 04:59 mouth 2 [place] 00 :00 (two) Medical times Branch daily for 30 days. tamsulosin 2021- No [id number] .4mg Take 1 Univers 0.4 mg 24 5-17 -17 capsule by ity of hr capsule 00:00: 04:59 mouth [place] 00 :00 daily for Medical 30 days. Branch docusate 2021- No [id number] 100mg Take 1 U nivers 100 mg 5-17 06-17 capsule by ity of capsule 00:00: 04:59 mouth 2 [place] 00 :00 (two) Medical times Branch daily for 30 days. lactobacill 2021-2021- No [id number] .5mg Take 1 Univers us 5-17 06-17 tablet by ity of acidophilus 00:00: 04:59 mouth 2 [place] 00 :00 (two) Medical times Branch daily for 30 days. sennosides 2021- No [id number] 8.6mg Take 1 Univers 8.6 mg 5-17 06-17 tablet by ity of tablet 00:00: 04:59 mouth 2 [place] 00 :00 (two) Medical times Branch daily for 30 days. tamsulosin 2021- No [id number] .4mg Take 1 Univers 0.4 mg 24 5-17 06-17 capsule by ity of hr capsule 00:00: 04:59 mouth [place] 00 :00 daily for Medical 30 days. Branch docusate 2021- No [id number] 100mg Take 1 U nivers 100 mg 5-17 06-17 capsule by ity of capsule 00:00: 04:59 mouth 2 [place] 00 :00 (two) Medical times Branch daily for 30 days. lactobacill 2021- No [id number] .5mg Take 1 Univers us 5-17 06-17 tablet by ity of acidophilus 00:00: 04:59 mouth 2 [place] 00 :00 (two) Medical times Branch daily for 30 days. sennosides 2021- No [id number] 8.6mg Take 1 Univers 8.6 mg 5-17 06-17 tablet by ity of tablet 00:00: 04:59 mouth 2 [place] 00 :00 (two) Medical times Branch daily for 30 days. tamsulosin 2021- No [id number] .4mg Take 1 Univers 0.4 mg 24 5-17 06-17 capsule by ity of hr capsule 00:00: 04:59 mouth [place] 00 :00 daily for Medical 30 days. Branch docusate 2021- No [id number] 100mg Take 1 U nivers 100 mg 5-17 06-17 capsule by ity of capsule 00:00: 04:59 mouth 2 [place] 00 :00 (two) Medical times [place] daily for 30 days. lactobacill 2021- No [id number] .5mg Take 1 Univers us 5-17 06-17 tablet by ity of acidophilus 00:00: 04:59 mouth 2 [place] 00 :00 (two) Medical times Branch daily for 30 days. sennosides 2021- No [id number] 8.6mg Take 1 Univers 8.6 mg 5-17 06-17 tablet by ity of tablet 00:00: 04:59 mouth 2 [place] 00 :00 (two) Medical times [place] daily for 30 days. tamsulosin 2021- No [id number] .4mg Take 1 Univers 0.4 mg 24 5-17 06-17 capsule by ity of hr capsule 00:00: 04:59 mouth [place] 00 :00 daily for Medical 30 days. Branch docusate 2021- No [id number] 100mg Take 1 U nivers 100 mg 5-17 06-17 capsule by ity of capsule 00:00: 04:59 mouth 2 [place] 00 :00 (two) Medical times [place] daily for 30 days. lactobacill 2021- No [id number] .5mg Take 1 Univers us 5-17 06-17 tablet by ity of acidophilus 00:00: 04:59 mouth 2 [place] 00 :00 (two) Medical times [place] daily for 30 days. sennosides 2021- No [id number] 8.6mg Take 1 Univers 8.6 mg 5-17 06-17 tablet by ity of tablet 00:00: 04:59 mouth 2 [place] 00 :00 (two) Medical times [place] daily for 30 days. tamsulosin 2021- No [id number] .4mg Take 1 Univers 0.4 mg 24 5-17 06-17 capsule by ity of hr capsule 00:00: 04:59 mouth [place] 00 :00 daily for Medical 30 days. Branch metroNIDAZO 2021- No [id number] 500mg Take 1 Univers LE 500 mg 5-17 05-21 tablet by ity of tablet 00:00: 04:59 mouth [place] 00 :00 every 12 Medical (twelve) Branch hours for 3 days. metroNIDAZO 2021- No [id number] 500mg Take 1 Univers LE 500 mg 11-28- tablet by ity of tablet 00:00: 04:59 mouth [place] 00 :00 every 12 Medical (twelve) Branch hours for 3 days. metroNIDAZO 2021- No 500mg 500 mg, U nivers LE (FLAGYL) 11-26 Oral, Q12H i ty of tablet 500 [...] Yes 30mg 30 mg, Unive rs (LOVENOX) 512 Subcutaneo ity of injection 01:00: us, Q12H, Tim as 30 mg 00 First dose Medical on Sat Branch 11/22/21 at 2000, Until Discontinu ed, Routine proMETHazin Yes 25mg 25 mg, IV U nivers e 11-22 Piggyback, ity of (PHENERGAN) 22:58: Q4HPRN, [place] 25 mg in 13 Starting Medical NaCl 0.9% on Wed Branch (NS) 50 mL 11/22/21 at IV 1758, piggyback Until Discontinu ed, Routine, Nausea and Vomiting (N/V) collagenase Yes Topical Uni vers (SANTYL) 11-22 (Apply To ity of ointment 22:15: Affected [place] 00 Areas), Medical DAILY, Branch First dose [...] s mg 00 First dose Medical on Sat11/22/21 at 0330, Until Discontinu ed, Routine HYDROmorpho [...] Sat11/22/21 at 0030, STAT iopamidol 2021- No [id number] 150mL 150 mL, Univers (ISOVUE 11-22 Intravenou ity o f 370-500 mL) 04:45: 03:34 s, ONCE, 1 [place] injection 00 :00 dose, On Medica l 150 mL Sat11/21/21 at 2345, Routine ceFEPIme No 2000mg 2,000 mg, U nivers (MAXIPIME) [...] 2245, STAT OXYCODONE 2021- No Take by [facility] ers HCL/ACETAMI 11-22 mouth. ity o f NOPHEN 03:22: 00:00 [place] (PERCOCET 50 :00 Medical ORAL) [place] FENTanyl PF 2021- No 100ug 100 mcg, Univers (SUBLIMAZE 11-22 Slow IV ity o f (PF)) 01:30: 01:12 Push, [place] injection 00 :00 ONCE, 1 Medical 100 mcg dose, On Branch Sat11/21/21 at 2030, STAT Lovenox No Notes: Memoria 4-13 (Same as: l 17:00: Lovenox) Lovenox No Notes: [place]oria 4-13 (Same as: l 17:00: Lovenox) [place] 00 Lovenox No Notes: Memoria 4-13 (Same as: [...] solution 00 ION (Same as: Proventil) hydromorpho 2-0 Yes 4 mg = 1 Me moria ne 4 mg 4-13 tab, PO, l oral tablet 16:43: Q12H, 0 Her manzo 00 Refill(s) hydromorpho 2-0 Yes 4 mg = 1 Me moria ne 4 mg 4-13 tab, PO, l oral tablet 16:43: Q12H, 0 Her manzo 00 Refill(s) hydromorpho 2-0 Yes 4 mg = 1 Me moria ne 4 mg 4-13 tab, PO, l oral tablet 16:43: Q12H, 0 Her manzo 00 Refill(s) Lantus 100 2022-0 No 10 unit, Mem oria units/mL 4-13 SUB-Q, l 16:40: Daily, 0 [place] 00 Refill(s) Lantus 100 2-0 No 10 unit, Mem oria units/mL 4-13 SUB-Q, l 16:40: Daily, 0 [place] 00 Refill(s) Lantus 100 2-0 No 10 unit, Mem oria units/mL 4-13 SUB-Q, l 16:40: Daily, 0 [place] 00 Refill(s) Lantus 100 2-0 No 10 unit, Mem oria units/mL 4-12 0.1 mL, l 14:00: Route: [place] 00 SUB-Q, Drug form: SOLN, Daily, Dosing Weight 127.727, kg, Start date: 10/24/21 9:00:00 CDT, Duration: 30 day, Stop date: 11/22/21 9:00:00 CDT, Infuse over: 0 hr, 0 Lantus 100 2022-0 No 10 unit, Mem oria units/mL 4-12 0.1 mL, l 14:00: Route: [place] 00 SUB-Q, Drug form: SOLN, Daily, Dosing Weight 127.727, kg, Start date: 10/24/21 9:00:00 CDT, Duration: 30 day, Stop date: 11/22/21 9:00:00 CDT, Infuse over: 0 hr, 0 Lantus 100 2022-0 No 10 unit, Mem oria units/mL 4-12 [...] mg Product Wasted: _0__ mg cefepime + 2021- No Notes: Memor ia sterile 4-12 (Same As: l water 10 mL 05:00: Maxipime) H MEDICATION WASTE Product Size: 1000 mg Product Wasted: _0__ mg insulin 2021- No Notes: Memoria lispro 4-12 (Same as: l 05:00: Humalog) Roll in palms of hands gently; Do not shake vigorously . WASTE: F/P - Black; E - Municipal Trash Bin Stable for 28 days at room temperatur e. Expires in days from ____Date cefepime + No Notes: Memor ia sterile 4-12 (Same As: l water 10 mL 05:00: Maxipime) H MEDICATION WASTE Product Size: 1000 mg Product Wasted: _0__ mg insulin 2021- No Notes: [place] lispro 4-12 (Same as: l 05:00: Humalog) [place] 00 Roll in palms of hands gently; Do not shake vigorously . WASTE: F/P - Black; E - Municipal Trash Bin Stable for 28 days at room temperatur e. Expires in days from ____Date cefepime + No Notes: Memor ia sterile 4-12 (Same As: l water 10 mL 05:00: Maxipime) H MEDICATION WASTE Product Size: 1000 [...] Infuse over: 0 hr, 0 Lantus 100 2021-0 No 10 unit, Mem oria units/mL 4-11 0.1 mL, l 16:24: Route: [place] 00 SUB-Q, Drug form: SOLN, ONCE, Dosing Weight 127.727, kg, Start date: 10/23/21 11:24:00 CDT, Stop date: 10/23/21 11:24:00 CDT, Infuse over: 0 hr, 0 NS (Bolus) 2021-0 No 500 mL, Erwin benjamin IV 4-11 500 ml/hr, l 15:15: Infuse [place] 00 Over: 1 hr, Route: IV, 500, Drug form: INJ, ONCE, Priority: STAT, Dosing Weight 127.727 kg, Start date: 10/23/21 10:15:00 CDT, Stop date: 10/23/21 10:15:00 CDT, 0 NS (Bolus) 2021-0 No 500 mL, Erwin benjamin IV 4-11 500 ml/hr, l 15:15: Infuse [place] 00 Over: 1 hr, Route: IV, 500, Drug form: INJ, ONCE, Priority: STAT, Dosing Weight 127.727 kg, Start date: 10/23/21 10:15:00 CDT, Stop date: 10/23/21 10:15:00 CDT, 0 NS (Bolus) 2021-0 No 500 mL, Erwin benjamin IV 4-11 500 ml/hr, l 15:15: Infuse [place] 00 Over: 1 hr, Route: IV, 500, Drug form: INJ, ONCE, Priority: STAT, Dosing Weight 127.727 kg, Start date: 10/23/21 10:15:00 CDT, Stop date: 10/23/21 10:15:00 CDT, 0 Dextrose 2021-0 No 12.5 gm, Memor ia 50% Syringe 4-11 25 mL, l (D50W) 13:59: Route: [place] 00 IVP, Drug Form: INJ, Dosing Weight 127.727, kg, PRN, PRN Blood Glucose Results, Start date: 10/23/21 8:59:00 CDT, Duration: 30 day, Stop date: 11/22/21 8:58:00 CDT, 0 glucagon 2021-0 No 1 mg, Memoria 4-11 Route: IM, l 13:59: Drug form: [place] 00 PDR/INJ, PRN, Dosing Weight 127.727, kg, PRN Blood Glucose Results, Start date: 10/23/21 8:59:00 CDT, Duration: 30 day, Stop date: 11/22/21 8:58:00 CDT, 0 insulin 2022-0 No Notes: [place] lispro 4-11 (Same as: [...] Stop date: 11/22/21 8:58:00 CDT, 0 glucagon 2022-0 No 1 mg, Memoria 4-11 Route: IM, l 13:59: Drug form: [place] 00 PDR/INJ, PRN, Dosing Weight 127.727, kg, PRN Blood Glucose Results, Start date: 10/23/21 8:59:00 CDT, Duration: 30 day, Stop date: 11/22/21 8:58:00 CDT, 0 insulin 202-0 No Notes: [place] lispro 4-11 (Same as: l 13:59: Humalog) [place] 00 Roll in palms of hands gently; [...] 4-11 Route: IM, l 13:59: Drug form: [place] 00 PDR/INJ, PRN, Dosing Weight 127.727, kg, [...] Dilute in l mg/mL 17:00: at least [place] intravenous 00 50ml D5W solution + or NS. Sodium Infusion Chloride rate = 20 0.9% IV 50 mg/min mL (Same As: Depacon) Hazardous Drug Group 3:Reproduc tive risk Hazardous Drug -- Refer to safe handling procedure PPE Matrix valproic No Notes: Memoria acid 100 4-10 Dilute in l mg/mL 17:00: at least [place] intravenous 00 50ml D5W solution + or NS. Sodium Infusion Chloride rate = 20 0.9% IV 50 mg/min mL (Same As: Depacon) Hazardous Drug Group 3:Reproduc tive risk Hazardous Drug -- Refer to safe handling procedure PPE Matrix valproic No Notes: Memoria acid 100 4-10 Dilute in l mg/mL 17:00: at least [place] intravenous 00 50ml D5W solution + or NS. Sodium Infusion Chloride rate = 20 0.9% IV 50 mg/min mL (Same As: Depacon) Hazardous Drug Group 3:Reproduc tive risk Hazardous Drug -- Refer to safe handling procedure PPE Matrix Solu-MEDROL No Notes: Erwin benjamin 4-10 (Same l 16:43: as:Solu-[place] 00 DROL, A-Methapre d) MEDICATION WASTE Product Size: 1000 mg Product Wasted: _0__ mg magnesium No Notes: Memori a sulfate 4-10 WASTE: F/P l 16:43: - Sink; E - Municipal Trash Bin Solu-MEDROL No Notes: Erwin benjamin 4-10 (Same l 16:43: as:Solu-[place] 00 DROL, A-Methapre d) MEDICATION WASTE Product Size: 1000 mg Product Wasted: _0__ mg magnesium No Notes: Memori a sulfate 4-10 WASTE: F/P l 16:43: - Sink; E - Municipal Trash Bin Solu-MEDROL No Notes: Erwin benjamin 4-10 (Same l 16:43: as:Solu-[place] 00 DROL, A-Methapre d) MEDICATION WASTE Product [...] moria e 4-09 Route: l 18:44: IVPB, [place] 00 Q12H, Dosing Weight 127.727, kg, PRN Nausea & Vomiting, Start date: 10/21/21 13:44:00 CDT, Duration: 30 day, Stop date: 11/20/21 13:43:00 CDT promethazin No 6.25 mg, Me moria e - Route: l 18:44: IVPB, [place] 00 Q12H, Dosing Weight 127.727, kg, PRN Nausea & Vomiting, Start date: 10/21/21 13:44:00 CDT, Duration: 30 day, Stop date: 11/20/21 13:43:00 CDT promethazin No 6.25 mg, Me moria e - Route: l 18:44: IVPB, [place] 00 Q12H, Dosing Weight 127.727, kg, PRN [...] Memoria 4-09 (Same as: l 18:36: Dilaudid) Jason Dilaudid No Notes: Memoria 4-09 (Same as: l 18:36: Dilaudid) Jason 00 Phenergan No Notes: Memori a 4-09 (Same as: l 18:33: Phenergan) [place] 00 6.25 mg = 1/2 x 12.5 mg TAB Phenergan No Notes: Memori a 4-09 (Same as: l 18:33: Phenergan) Jason 00 6.25 mg = 1/2 x 12.5 mg TAB Phenergan No Notes: Memori a 4-09 (Same as: l 18:33: Phenergan) [place] 00 6.25 mg = 1/2 x 12.5 mg TAB ascorbic No Notes: Memoria acid 4-09 (Same as: l 14:00: Vitamin C) celecoxib [...] Memoria sulfate - (Zinc l 14:00: sulfate [place] 00 capsule) - 220 mg Zinc sulfate = 50 mg elemental zinc Same as Zinc Sulfate ascorbic No Notes: Memoria acid 4-09 (Same as: l 14:00: Vitamin C) Jason celecoxib No Notes: Memori a 4-09 NSAID. l 14:00: Please [place] 00 check indication . Not for seizure. (Same As: CeleBREX) Lidoderm 5% No Notes: Erwin benjamin topical -09 Apply only l film 14:00: once for [...] Zinc Sulfate ascorbic No Notes: Memoria acid 10-21 (Same as: l 14:00: Vitamin C) Jason 00 celecoxib No Notes: Memori a - NSAID. l 14:00: Please [place] 00 check indication . Not for seizure. (Same As: CeleBREX) Lidoderm 5% No Notes: Erwin benjamin topical 10-21 Apply only l film 14:00: once for [place] (patch) 00 up to 12 hours in [...] l water 10 mL 12:00: Maxipime) H ermann 00 MEDICATION WASTE Product Size: 1000 mg Product Wasted: _0__ mg cefepime + No Notes: Memor ia sterile - (Same As: l water 10 mL 12:00: Maxipime) H ermann 00 MEDICATION WASTE Product Size: 1000 mg Product Wasted: _0__ mg cefepime + No Notes: Memor ia sterile - (Same As: l water 10 mL 12:00: Maxipime) H ermann 00 MEDICATION WASTE Product Size: 1000 mg Product Wasted: _0__ mg hydromorpho No Notes: Erwin benjamin ne 10-21 (Same as: l 09:39: Dilaudid) Jason 00 hydromorpho No Notes: Erwin benjamin ne 10-21 (Same as: l 09:39: Dilaudid) [place] 00 hydromorpho No Notes: Erwin benjamin ne 4-09 (Same as: l 09:39: Dilaudid) Jason methocarbam No Notes: Erwin benjamin ol 4-09 (Same l 05:00: as:Robaxin [place] ) methocarbam No Notes: Erwin benjamin ol 4-09 (Same l 05:00: as:Robaxin [place] ) methocarbam No Notes: Erwin benjamin ol 4-09 (Same l 05:00: as:Robaxin [place] ) docusate No Notes: Memoria 4-09 (Same as: l 02:00: Colace) [place] 00 (Do Not Crush) senna No Notes: Memoria 4-09 (Same as: l 02:00: Senokot) Jason Saline No Notes: Memoria Flush 0.9% 4-09 (Same as: l 02:00: BD [place] 00 Posiflush) topiramate No Notes: Memor ia 4-09 (Same As: l 02:00: Topamax) [place] 00 "Do Not Crush" Hazardous Drug Group [...] 0.9% 4-09 (Same as: l 02:00: BD [place] 00 Posiflush) topiramate No Notes: Memor ia 4-09 (Same As: l 02:00: Topamax) [place] 00 "Do Not Crush" Hazardous Drug Group [...] Memoria 4-09 (Same as: l 02:00: Senokot) [place] 00 Saline No Notes: Memoria Flush 0.9% 10-21 (Same as: l 02:00: BD Jason 00 Posiflush) topiramate No Notes: Memor ia - (Same As: l 02:00: Topamax) [place] 00 "Do Not Crush" Hazardous Drug Group 3:Reproduc tive risk Hazardous Drug -- Refer to safe handling procedure PPE Matrix remove No Notes: Memoria patch 4-09 Remove l 02:00: patch 12 [place] 00 hours after applicatio n each day. acetaminoph No Notes: Max Memoria en 4-09 acetaminop l 01:00: hen 4000 [place] 00 mg/day (4 gm/day). (Same as: Tylenol Extra Strength) acetaminoph No Notes: Max Memoria en 4-09 acetaminop l 01:00: hen 4000 Jason 00 mg/day (4 gm/day). (Same as: Tylenol Extra Strength) acetaminoph No Notes: Max Memoria en 4-09 acetaminop l 01:00: hen 4000 [place] 00 mg/day (4 gm/day). (Same as: Tylenol Extra Strength) oxyCODONE No Notes: Memori a immediate - (Same as: l release 00:09: Roxicodone Herm philip 00 ) acetaminoph No Notes: Do M emoria en-hydrocod - not exceed l one 325 00:09: 4gm/day of Herm philip mg-10 mg 00 acetaminop oral tablet hen. (Same as: [place] 325/10) oxyCODONE No Notes: Memori a immediate -09 (Same as: l release 00:09: Roxicodone Herm philip 00 ) acetaminoph No Notes: Do M emoria en-hydrocod 4-09 not exceed l one 325 00:09: 4gm/day of Herm philip mg-10 mg 00 acetaminop oral tablet hen. (Same as: [place] 325/10) oxyCODONE No Notes: Memori a immediate 4-09 (Same as: l release 00:09: Roxicodone Herm philip 00 ) acetaminoph No Notes: Do M emoria en-hydrocod 4-09 not exceed l one 325 00:09: 4gm/day of Herm philip mg-10 mg 00 acetaminop oral tablet hen. (Same as: [place] 325/10) LORazepam No Notes: Memori a 4-09 (Same as: l 00:06: Ativan) Jason oxyCODONE No Notes: Memori a immediate 4-09 (Same as: l release 00:06: Roxicodone Herm philip 00 ) LORazepam No Notes: Memori a 4-09 (Same as: l 00:06: Ativan) Jason oxyCODONE No Notes: Memori a immediate 4-09 (Same as: l release 00:06: Roxicodone Herm philip 00 ) LORazepam No Notes: Memori a 4-09 (Same as: l 00:06: Ativan) [place] oxyCODONE No Notes: Memori a immediate 4-09 (Same as: l release 00:06: Roxicodone Herm philip 00 ) Sodium No 1,000 mL, Memori a Chloride 08 Rate: 75 l 0.9% IV 23:43: ml/hr, Jason 1,000 mL 00 Infuse over: 13.3 hr, Route: IV, Dosing Weight 127.727 kg, Total Volume: 1,000, Start date: 10/20/21 18:43:00 CDT, Duration: 30 day, Stop date: 11/19/21 18:42:00 CDT, BSA: 2.37 m2, 0 acetaminoph No Notes: Do M emoria en 4-08 not exceed l 23:43: 4 gm/day. [place] 00 (Same as: Tylenol) acetaminoph No Notes: Erwin benjamin en-hydrocod 4-08 (Same as: l one 325 23:43: [place] Jason mg-5 mg 00 325/5) Do oral tablet not exceed 4gm/day of acetaminop hen. acetaminoph No Notes: Do M emoria en-hydrocod 4-08 not exceed l one 325 23:43: 4gm/day of Herm philip mg-10 mg 00 acetaminop oral tablet hen. (Same as: [place] 325/10) bisacodyl No Notes: Memori a 4-08 (Same As: l 23:43: Dulcolax, Jason Bisco-Lax) hydrALAZINE No Notes: Erwin benjamin -08 (Same as: l 23:43: Apresoline ) Push over 5 minutes labetalol No 10 mg, 2 Erwin benjamin -08 mL, Route: l 23:43: IVP, Drug form: INJ, Q15Min, Dosing Weight 127.727, kg, Start date: 10/20/21 18:43:00 CDT, Duration: 3 doses or times, Stop date: 10/20/21 19:13:00 CDT, 0 Saline No Notes: Memoria Flush 0.9% 10-20 (Same as: l 23:43: BD [place] 00 Posiflush) Sodium No 1,000 mL, Memori [...] not exceed l 23:43: 4 gm/day. Jason 00 (Same as: Tylenol) acetaminoph No Notes: Erwin benjamin en-hydrocod 4-08 (Same as: l one 325 23:43: [place] mg-5 mg 00 325/5) Do oral tablet not exceed 4gm/day of acetaminop hen. acetaminoph No Notes: Do M emoria en-hydrocod 4-08 not exceed l one 325 23:43: 4gm/day of Herm philip mg-10 mg 00 acetaminop oral tablet hen. (Same as: [place] 325/10) bisacodyl No Notes: Memori a 4-08 (Same As: l 23:43: Dulcolax, [place] Bisco-Lax) hydrALAZINE No Notes: Erwin benjamin 4-08 (Same as: l 23:43: Apresoline ) Push over 5 minutes labetalol No 10 mg, 2 Erwin benajmin 4-08 mL, Route: l 23:43: IVP, Drug form: INJ, Q15Min, Dosing Weight 127.727, kg, Start date: 10/20/21 18:43:00 CDT, Duration: 3 doses or times, Stop date: 10/20/21 19:13:00 CDT, 0 Saline No Notes: Memoria Flush 0.9% -08 (Same as: l 23:43: BD [place] 00 Posiflush) Sodium No 1,000 mL, Memori a Chloride -08 Rate: 75 l 0.9% IV 23:43: ml/hr, [place] 1,000 mL 00 Infuse over: 13.3 hr, Route: IV, Dosing Weight 127.727 kg, Total Volume: 1,000, Start date: 10/20/21 18:43:00 CDT, Duration: 30 day, Stop date: 11/19/21 18:42:00 CDT, BSA: 2.37 m2, 0 acetaminoph No Notes: Do M emoria en 4-08 not exceed l 23:43: 4 gm/day. [place] 00 (Same as: Tylenol) acetaminoph No Notes: Erwin benjamin en-hydrocod 4-08 (Same as: l one 325 23:43: [place] mg-5 mg 00 325/5) Do oral tablet not exceed 4gm/day of acetaminop hen. acetaminoph No Notes: Do M emoria en-hydrocod 08 not exceed l one 325 23:43: 4gm/day of Herm philip mg-10 mg 00 acetaminop oral tablet hen. (Same as: [place] 325/10) bisacodyl No Notes: Memori a 08 (Same As: l 23:43: Dulcolax, Bisco-Lax) hydrALAZINE No Notes: Erwin benjamin 08 (Same as: l 23:43: Apresoline ) Push over 5 minutes labetalol No 10 mg, 2 Erwin benjamin 10-20 mL, Route: l 23:43: IVP, Drug form: INJ, Q15Min, Dosing Weight 127.727, kg, Start date: 10/20/21 18:43:00 CDT, Duration: 3 doses or times, Stop date: 10/20/21 19:13:00 CDT, 0 Saline No Notes: Memoria Flush 0.9% 10-20 (Same as: l 23:43: BD Posiflush) NaCl 0.9% 1000mL at 999 Uni vers (NS) bolus 10-1604 mL/hr, ity of infusion 05:00: 05:59 1,000 mL, Tim as 1,000 mL 00 :00 IV Medical Piggyback, Branch ONCE, 1 dose, On Sat10/16/21 at 0000, STAT diphenhydrA No 25mg 25 mg, Uni vers MINE 10-16-04 Slow IV ity of (BENADRYL) 05:00: 04:47 Push, [place] injection 00 :00 ONCE, 1 Medical 25 mg dose, On Branch Sat10/16/21 at 0000, STAT haloperidol No 2.5mg 2.5 mg, U nivers lactate 10-16-04 Intravenou ity o f (HALDOL) 05:00: 04:47 s, ONCE, 1 [place] injection 00 :00 dose, On Medica l 2.5 mg 10/16/21 Branch at 0000, STAT topiramate Yes 25 mg = 1 Me moria 25 mg oral 3-29 cap, PO, l capsule 13:44: Q12H, # 60 Herm philip 00 cap, 0 Refill(s), Pharmacy: [facility] #[id number], 149.86, cm, 10/06/21 1:18:00 CDT, Height, 127.727, kg, 10/06/21 1:18:00 CDT, Weight topiramate Yes 25 mg = 1 Me moria 25 mg oral 3-29 cap, PO, l capsule 13:44: Q12H, # 60 Herm philip 00 cap, 0 Refill(s), Pharmacy: [facility] #[id number], 149.86, cm, 10/06/21 1:18:00 CDT, Height, 127.727, kg, 10/06/21 1:18:00 CDT, Weight topiramate Yes 25 mg = 1 Me moria 25 mg oral 3-29 cap, PO, l capsule 13:44: Q12H, # 60 Herm philip 00 cap, 0 Refill(s), Pharmacy: [facility] cy #[id number], 149.86, cm, 10/06/21 1:18:00 CDT, Height, 127.727, kg, 10/06/21 1:18:00 CDT, Weight topiramate No Notes: Memor ia 3-28 Hazardous l 22:05: Drug Group [place] 3:Reproduc tive risk Hazardous Drug -- Refer to safe handling procedure PPE Matrix Sprinkle formulatio n. (Same As: Topamax) topiramate No Notes: Memor ia 3-28 Hazardous l 22:05: Drug Group [place] 3:Reproduc tive risk Hazardous Drug -- Refer to safe handling procedure PPE Matrix Sprinkle formulatio n. (Same As: Topamax) topiramate No Notes: Memor ia 3-28 Hazardous l 22:05: Drug Group Jason 3:Reproduc tive risk Hazardous Drug -- Refer to safe handling procedure PPE Matrix Sprinkle formulatio n. (Same As: Topamax) Edwin No Notes: Memoria packet 3-28 (Same as: l 21:30: Edwin Jason 00 Unflavored ) Administer ing EDWIN orally: Mix into 8-10 fl oz of room temperatur e juice, soda, or water. Also mixes well with warm beverages, like coffee or tea. Can be mixed with applesauce . Thoroughly stir for 30-60 seconds or until completely dissolved Edwin No Notes: Memoria packet 3-28 (Same as: l 21:30: Edwin Jason 00 Unflavored ) Administer ing EDWIN orally: Mix into 8-10 fl oz of room temperatur e juice, soda, or water. Also mixes well with warm beverages, like coffee or tea. Can be mixed with applesauce . Thoroughly stir for 30-60 seconds or until completely dissolved Edwin No Notes: Memoria packet 3-28 (Same as: l 21:30: Edwin [place] 00 Unflavored ) Administer ing EDWIN orally: Mix into 8-10 fl oz of room temperatur e juice, soda, or water. Also mixes well with warm beverages, like coffee or tea. Can be mixed with applesauce . Thoroughly stir for 30-60 seconds or until completely dissolved Lovenox No Notes: Memoria 3-27 (Same as: l 16:00: Lovenox) [place] 00 Lovenox No Notes: Memoria 3-27 (Same as: l 16:00: Lovenox) Jason 00 Lovenox No Notes: Memoria 3-27 (Same as: l 16:00: Lovenox) Jason 00 Magnesium No Notes: Memori a Sulfate 10-08 WASTE: F/P l 15:54: - Sink; E Jason - Municipal Trash Bin methylPREDN No Notes: Erwin benjamin ISolone - (Same l SODium 15:54: as:Solu-ME Kristen nn SUCCinate 00 DROL, A-Methapre d) MEDICATION WASTE Product Size: 1000 mg Product Wasted: ___ mg Magnesium No Notes: Memori a Sulfate 10-08 WASTE: F/P l 15:54: - Sink; E Jason 00 - Municipal Trash Bin methylPREDN No Notes: Erwin benjamin ISolone 3-27 (Same l SODium 15:54: as:Solu-ME Kristen nn SUCCinate 00 DROL, A-Methapre d) MEDICATION WASTE Product Size: 1000 mg Product Wasted: ___ mg Magnesium No Notes: Memori a Sulfate 3-27 WASTE: F/P l 15:54: - Sink; E [place] 00 - Municipal Trash Bin methylPREDN No Notes: Erwin benjamin ISolone 3-27 (Same l SODium 15:54: as:Solu-ME Kristen nn SUCCinate 00 DROL, A-Methapre d) MEDICATION WASTE Product Size: 1000 mg Product Wasted: ___ mg Dilaudid No Notes: Memoria 3-27 (Same as: l 13:28: Dilaudid) Jason 00 Dilaudid No Notes: Memoria 3-27 (Same as: l 13:28: Dilaudid) Jason 00 Dilaudid No Notes: Memoria 3-27 (Same as: l 13:28: Dilaudid) [place] 00 remove No Notes: Memoria patch 3-27 Remove l 02:00: patch 12 [place] 00 hours after applicatio n each day. remove No Notes: Memoria patch 3-27 Remove l 02:00: patch 12 [place] 00 hours after applicatio n each day. remove No Notes: Memoria patch 3-27 Remove l 02:00: patch 12 [place] 00 hours after applicatio n each day. Lyrica No Notes: Memoria 3-26 (Same as: l 21:58: Lyrica) [place] 00 Naproxen No Notes: Memoria 3-26 (Same as: l 21:58: Naprosyn) Jason 00 Take with food. Lyrica No Notes: Memoria 3-26 (Same as: l 21:58: Lyrica) [place] 00 Naproxen No Notes: Memoria 3-26 (Same as: l 21:58: Naprosyn) Jason 00 Take with food. Lyrica No Notes: Memoria 3-26 (Same as: l 21:58: Lyrica) Naproxen No Notes: Memoria 3-26 (Same as: l 21:58: Naprosyn) Take with food. Ascorbic No Notes: Memoria Acid 3-26 (Same as: l 14:00: Vitamin C) Zinc No Notes: Memoria Sulfate 3-26 (Zinc [...] 3-26 (Same as: l 14:00: Vitamin C) Zinc No Notes: Memoria Sulfate 3-26 (Zinc l 14:00: sulfate [place] 00 capsule) - 220 mg Zinc sulfate [...] 3-26 (Same as: l 14:00: Vitamin C) Zinc No Notes: Memoria Sulfate 3-26 (Zinc l 14:00: sulfate capsule) - 220 mg Zinc sulfate = 50 mg elemental zinc Same as Zinc Sulfate multivitami No Notes: Erwin benjamin n - [...] Notes: Memoria 3-26 NSAID. l 03:15: Please Jason check indication . Not for seizure. (Same As: CeleBREX) Robaxin No Notes: Memoria 3-26 (Same l 03:15: as:Robaxin ) gabapentin No Notes: Memor ia 3-26 (Same as: l 03:15: Neurontin) Tramadol No Notes: Not Mem oria 3-26 to exceed l 03:15: 400mg/day. Jason (Same As: Ultram) Celebrex No Notes: Memoria 3-26 NSAID. l 03:15: Please Jason 00 check indication . Not for seizure. (Same As: CeleBREX) Robaxin No Notes: Memoria 3-26 (Same l 03:15: as:Robaxin [place] 00 ) gabapentin No Notes: Memor ia 3-26 (Same as: l 03:15: Neurontin) Tramadol No Notes: Not Mem oria 3-26 to exceed l 03:15: 400mg/day. [place] (Same As: Ultram) Celebrex No Notes: Memoria 3-26 NSAID. l 03:15: Please Jason 00 check indication . Not for seizure. (Same As: CeleBREX) Robaxin No Notes: Memoria 3-26 (Same l 03:15: as:Robaxin [place] 00 ) gabapentin No Notes: Memor ia 10-07 (Same as: l 03:15: Neurontin) [place] 00 Tramadol No Notes: Not Mem oria 10-07 to exceed l 03:15: 400mg/day. Jason 00 (Same As: Ultram) Dexamethaso No Notes: Memoria ne - MEDICATION l 03:00: WASTE [place] 00 Product Size: 10 mg Product Wasted: ___ mg Dexamethaso No Notes: Memoria ne - MEDICATION l 03:00: WASTE [place] 00 Product Size: 10 mg Product Wasted: ___ mg Dexamethaso No Notes: Memoria ne 10-07 MEDICATION l 03:00: WASTE Jason 00 Product Size: 10 mg Product Wasted: ___ mg Dilaudid No Notes: Memoria 10-07 Same as l 02:58: Dilaudid Jason 00 Dilaudid No Notes: Memoria 10-07 Same as l 02:58: Dilaudid Jason 00 Dilaudid No Notes: Memoria 10-07 Same as l 02:58: Dilaudid [place] Acetaminoph No Notes: Max Memoria en 3-25 acetaminop l 22:38: hen = [place] 00 4000mg/day (4 gm/day). (Same as: Tylenol) Acetaminoph No Notes: Max Memoria en 3-25 acetaminop l 22:38: hen = Jason 00 4000mg/day (4 gm/day). (Same as: Tylenol) Acetaminoph No Notes: Max Memoria en 3-25 acetaminop l 22:38: hen = [place] 00 4000mg/day (4 gm/day). (Same as: Tylenol) Isolyte S No Notes: Memori a PH-7.4 3-25 (Same as: l (Bolus) IV 22:37: Isolyte S He rmann 00 PH7.4, Normosol-R PH 7.4, Plasma-Lyt e A ) Magnesium No Notes: Memori a Sulfate 3-25 WASTE: F/P l 22:37: - Sink; E [place] - Municipal Trash Bin Isolyte S No Notes: Memori a PH-7.4 3-25 (Same as: l (Bolus) IV 22:37: Isolyte S He rmann 00 PH7.4, Normosol-R PH 7.4, Plasma-Lyt e A ) Magnesium No Notes: Memori a Sulfate 3-25 WASTE: F/P l 22:37: - Sink; E [place] - Municipal Trash Bin Isolyte S No Notes: Memori a PH-7.4 3-25 (Same as: l (Bolus) IV 22:37: Isolyte S He r[place] 00 PH7.4, Normosol-R PH 7.4, Plasma-Lyt e A ) Magnesium No Notes: Memori a Sulfate 3-25 WASTE: F/P l 22:37: - Sink; E Jason - Municipal Trash Bin Iohexol No 100 mL, Memoria 3-25 Route: l 20:04: IVP, Drug Jason 00 Form: SOLN, Dosing Weight 127.727, kg, ONCALL, STAT, Start date: 10/06/21 15:04:00 CDT, Duration: 1 doses or times, Dose = 2.2ml/kg, Max dose = 100ml -- "To be infused by Radiology Staff ONLY" Iohexol 0 No 100 mL, Memoria 3-25 Route: l 20:04: IVP, Drug Jason 00 Form: SOLN, Dosing Weight 127.727, kg, ONCALL, STAT, Start date: 10/06/21 15:04:00 CDT, Duration: 1 doses or times, Dose = 2.2ml/kg, Max dose = 100ml -- "To be infused by Radiology Staff ONLY" Iohexol 0 No 100 mL, Memoria 3-25 Route: l 20:04: IVP, Drug [place] 00 Form: SOLN, Dosing Weight 127.727, kg, ONCALL, STAT, Start date: 10/06/21 15:04:00 CDT, Duration: 1 doses or times, Dose = 2.2ml/kg, Max dose = 100ml -- "To be infused by Radiology Staff ONLY" Docusate No Notes: Memoria 3-25 (Same as: l 14:00: Colace) [place] (Do Not Crush) sennosides, No Notes: Erwin benjamin FDC 3-25 (Same as: l 14:00: Senokot) [place] Saline No Notes: Memoria Flush 0.9% 3-25 preservati l 14:00: ve free. Jason 00 Docusate No Notes: Memoria 3-25 (Same as: l 14:00: Colace) [place] (Do Not Crush) sennosides, No Notes: Erwin benjamin FDC 3-25 (Same as: l 14:00: Senokot) Jason Saline No Notes: Memoria Flush 0.9% 3-25 preservati l 14:00: ve free. [place] Docusate No Notes: Memoria 3-25 (Same as: l 14:00: Colace) [place] (Do Not Crush) sennosides, No Notes: Erwin benjamin FDC 3-25 (Same as: l 14:00: Senokot) [place] Saline No Notes: Memoria Flush 0.9% 3-25 preservati l 14:00: ve free. [place] 00 influenza Yes Notes: Memori a virus 3-25 [...] a 3-25 (Same as: l 06:05: Ativan) [place] Methocarbam No Notes: Erwin benjamin ol 3-25 (Same l 06:05: as:Robaxin Jason 00 ) Lorazepam No Notes: Memori a 3-25 (Same as: l 06:05: Ativan) [place] Methocarbam No Notes: Erwin benjamin ol 3-25 (Same l 06:05: as:Robaxin [place] 00 ) Lorazepam No Notes: Memori a 3-25 (Same as: l 06:05: Ativan) Jason Methocarbam No Notes: Erwin benjamin ol 3-25 (Same l 06:05: as:Robaxin Jason 00 ) Sodium No 1,000 mL, Memori a Chloride 3-25 Rate: 50 l 0.9% IV 06:03: ml/hr, [place] 1,000 mL 00 Infuse over: 20 hr, [...] a 3-25 years, l 06:03: Pediatric Jason Dosing Acetaminoph No Notes: Do M emoria en 325 MG / 3-25 not exceed l Hydrocodone 06:03: 4gm/day of Bitartrate 00 acetaminop 10 MG Oral hen. (Same Tablet as: [place] [[place] 325/10) 10/325] Dilaudid No Notes: Memoria 3-25 Same as l 06:03: Dilaudid Benadryl No Notes: Memoria 3-25 (Same as: l 06:03: Benadryl) [place] phenol No Notes: Memoria 3-25 Chlorasept l 06:03: ic [place] (Same as: Chlorasept ic, Sore Throat [place]) WASTE: F/P - Black; E - Municipal Trash Bin Bisacodyl No Notes: Memori a 3-25 (Same As: l 06:03: Dulcolax, [place] 00 Bisco-Lax) Robaxin No Notes: Memoria 3-25 (Same l 06:03: as:Robaxin ) Melatonin 3 No Notes: Erwin benjamin MG Extended 3-25 (Same as: l Release 06:03: Melatonin) Herm philip Tablet 00 Tylenol No Notes: Do Memor ia 3-25 not exceed l 06:03: 4 gm/day. Jason (Same as: Tylenol) Reglan No Notes: Memoria 3-25 (Same as: l 06:03: Reglan) Jason 00 Phenergan No Notes: Do Mem oria 3-25 not give l 06:03: IV push. (Same as: Phenergan) Saline No Notes: Memoria Flush 0.9% 3-25 preservati l 06:03: ve free. Sodium No 1,000 mL, Memori a Chloride 3-25 Rate: 50 l 0.9% IV 06:03: ml/hr, Jason 1,000 mL 00 Infuse over: 20 hr, [...] not exceed l Hydrocodone 06:03: 4gm/day of Jsaon Bitartrate 00 acetaminop 10 MG Oral hen. (Same Tablet as: [place] [[place] 325/10) 10/325] Dilaudid No Notes: Memoria 3-25 Same as l 06:03: Dilaudid Benadryl No Notes: Memoria 3-25 (Same as: l 06:03: Benadryl) 00 phenol No Notes: Memoria 3-25 Chlorasept l 06:03: ic [place] (Same as: Chlorasept ic, Sore Throat [place]) WASTE: F/P - Black; E - Municipal Trash Bin Bisacodyl No Notes: Memori a 3-25 (Same As: l 06:03: Dulcolax, [place] 00 Bisco-Lax) Robaxin No Notes: Memoria 3-25 (Same l 06:03: as:Robaxin ) Melatonin 3 No Notes: Erwin benjamin MG Extended -25 (Same as: l Release 06:03: Melatonin) Herm philip Tablet 00 Tylenol No Notes: Do Memor ia 3-25 not exceed l 06:03: 4 gm/day. [place] 00 (Same as: Tylenol) Reglan No Notes: Memoria 3-25 (Same as: l 06:03: Reglan) [place] 00 Phenergan No Notes: Do Mem oria 3-25 not give l 06:03: IV push. [place] 00 (Same as: Phenergan) Saline No Notes: Memoria Flush 0.9% 3-25 preservati l 06:03: ve free. Jason 00 Sodium No 1,000 mL, Memori a Chloride 3-25 Rate: 50 l 0.9% IV 06:03: ml/hr, Jason 1,000 mL 00 Infuse over: 20 hr, [...] 10 MG Oral hen. (Same Tablet as: [place] [[place] 325/10) 10/325] Dilaudid No Notes: Memoria 3-25 Same as l 06:03: Dilaudid Benadryl No Notes: Memoria 3-25 (Same as: l 06:03: Benadryl) Jason phenol No Notes: Memoria 3-25 Chlorasept l 06:03: ic [place] (Same as: Chlorasept ic, Sore Throat [place]) WASTE: F/P - Black; E - Municipal Trash Bin Bisacodyl No Notes: Memori a 3-25 (Same As: l 06:03: Dulcolax, Bisco-Lax) Robaxin No Notes: Memoria 3-25 (Same l 06:03: as:Robaxin ) Melatonin 3 No Notes: Erwin benjamin MG Extended -25 (Same as: l Release 06:03: Melatonin) Herm philip Tablet 00 Tylenol No Notes: Do Memor [...] No 2{tbl} 2 tablet, Univers acetaminoph 09-29 03-18 Oral, ity of en-caff 03:45: 03:10 ONCE, [...] by (Faculty): ADC PROVIDER levoFLOXaci 2021- No [id number] 750mg Take 1 Univers n 750 mg 08-09 tablet by ity o f tablet 00:00: 05:59 mouth [place] 00 :00 daily for Medical 4 days. Branch levoFLOXaci 2021- No [id number] 750mg Take 1 Univers n 750 mg [...] Medical ORAL) Branch OXYCODONE Yes Take by [facility] rs HCL/ACETAMI 25 mouth. ity of NOPHEN 19:49: [place] (PERCOCET 27 Medical ORAL) Branch vancomycin 2021- No 125mg 125 mg, Un [...] of therapy: 72 hours lactobacill 2021- No [id number] .5mg Take 1 Univers us 08-08-25 tablet by ity of acidophilus 00:00: 05:59 mouth 2 [place] 00 :00 (two) Medical times Branch daily for 30 days. lactobacill 2021- No [id number] .5mg Take 1 Univers us 08-08 02-25 tablet by ity of acidophilus 00:00: 05:59 mouth 2 [place] 00 :00 (two) Medical times Branch daily for 30 days. vancomycin 2021- No [id number] 125mg Take 1 Univers 125 mg 08-08 capsule by ity of capsule 00:00: 05:59 mouth 4 [place] 00 :00 (four) Medical times Branch daily for 5 days. vancomycin 2021- No [id number] 125mg Take 1 Univers 125 mg 08-08 [...] 08-06 Oral, ity of n 20:39: Q6HPRN, [place] (PERCOCET) 03 Starting Medic al 5-325 mg [...]
Use approved by (Faculty): ADC PROVIDER ertapenem No 1000mg 1,000 mg, Univers (INVANZ) 08-05 IV ity of 1,000 mg in 15:45: 18:30 Piggyback, [place] NaCl 0.9% 00 :00 Q24H ABX, Medic al (NS) 50 mL First dose Bra nch MINI-BAG on 08/05/21 at 0945, Until Discontinu [...] Branch 2000, Until Discontinu ed, Routine vancomycin No 250mg 250 mg, Un ela (VANCOCIN) 08-05 Oral, QID, it y of capsule 250 02:00: 16:20 First dose [place] mg 00 :40 (after Medical last Branch reorder) on 08/04/21 at 2000, Until Discontinu ed, SAHARA
membership sales advisor approving Non-formul shanelle medication : MEGADC
Reason [...] of Therapy: Other (see Comments) HYDROmorpho 0 202- No .5mg 0.5 mg, Un ela ne 08-03 Slow IV ity of (DILAUDID) 14:29: 20:41 Push, [place] injection 58 :17 Q4HPRN, Medical 0.5 mg Starting Branch on Libra 08/03/21 at 0829, Until 08/06/21 at 1441, Routine, Pain (scale 7-10)
U se approved by (Faculty): ADC PROVIDER proMETHazin Yes 25mg 25 mg, Univ ers e 120 Oral, ity of (PHENERGAN) 09:42: Q4HPRN, Tim as tablet 25 07 Starting Medica l mg on Libra Branch 08/03/21 at 0342, Until Discontinu ed, Routine, Nausea and Vomiting (N/V) HYDROmorpho 202- No .5mg 0.5 mg, Un ela ne 08-03 Slow IV ity of (DILAUDID) 09:41: 12:04 Push, [place] injection 36 :38 Q4HPRN, Medical 0.5 mg Starting Branch on Libra 08/03/21 at 0341, Until [facility] 08/03/21 at 0604, Routine, Pain (scale 7-10)
U se approved by (Faculty): ADC PROVIDER proCHLORper Yes 10mg 10 mg, Univ ers azine 1-20 Slow IV ity of (COMPAZINE) 09:07: Push, [place] injection 27 Q6HPRN, Medical 10 mg Starting Branch on Libra 08/03/21 at 0307, Until Discontinu ed, Routine, Nausea and Vomiting (N/V) acetaminoph Yes 650mg 650 mg, Un ela en 20 Oral, ity of (TYLENOL) 09:07: Q6HPRN, [place] [...] 00 :00 dose, On Medical [facility] 07/31/21 at 2130, SAHARA
Re ason [...] 00 :00 dose, On Medical NaCl 0.9% [facility] Branch (NS) 50 mL 07/31/21 at piggyback 1915, 50 mL cefdinir 2021- No [id number] 300mg Take 1 U nivers 300 mg 07-31 capsule by ity of capsule 00:00: 05:59 mouth [place] 00 :00 every 12 Medical (twelve) Branch hours for 10 days. cefdinir 2021- No [id number] 300mg Take 1 U nivers 300 mg [...] 07/29/21 at 1645, Routine methocarbam 2021-0 Yes [id number] 1000mg Take 2 Univers oL 500 mg 1-15 tablets by ity of tablet 00:00: mouth 4 (four) Medical times Branch daily as needed for Pain (scale 1-3). methocarbam 2021-0 Yes [id number] 1000mg Take 2 Univers oL 500 mg 1-15 tablets by ity of tablet 00:00: mouth 4 [place] 00 (four) Medical times Branch daily as needed for Pain (scale 1-3). methocarbam 2021-0 Yes [id number] 1000mg Take 2 Univers oL 500 mg 1-15 tablets by ity of tablet 00:00: mouth 4 00 (four) Medical times Branch daily as needed for Pain (scale 1-3). methocarbam Yes [id number] 1000mg Take 2 Univers oL 500 mg 1-15 tablets by ity of tablet 00:00: mouth 4 [place] 00 (four) Medical times Branch daily as needed for Pain (scale 1-3). methocarbam Yes [id number] 1000mg Take 2 Univers oL 500 mg 1-15 tablets by ity of tablet 00:00: mouth 4 00 (four) Medical times Branch daily as needed for Pain (scale 1-3). methocarbam Yes [id number] 1000mg Take 2 Univers oL 500 mg 1-15 tablets by ity of tablet 00:00: mouth 4 00 (four) Medical times Branch daily as needed for Pain (scale 1-3). methocarbam 2021- No [id number] 1000mg Take 2 Univers oL 500 mg [...] 06/07/21 at 1615, Routine fidaxomicin 2020-07 Yes [id number] 200mg Take 1 Univers 200 mg 1-24 tablet by ity of tablet 00:00: mouth 2 [place] 00 (two) Medical times Branch daily. proMETHazin 2020-07 Yes [id number] 25mg Take 1 Univers e 25 mg 1-24 tablet by ity of tablet 00:00: mouth 00 every 6 Medical (six) Branch hours as needed for Nausea and Vomiting (N/V). fidaxomicin 2020-07 Yes [id number] 200mg Take 1 Univers 200 mg 1-24 tablet by ity of tablet 00:00: mouth 2 (two) Medical times Branch daily. proMETHazin 2020-07 Yes [id number] 25mg Take 1 Univers e 25 mg 1-24 tablet by ity of tablet 00:00: mouth 00 every 6 Medical (six) Branch hours as needed for Nausea and Vomiting (N/V). cholestyram 2020-07 Yes Univer s ine 4 gram 1-24 ity of packet 00:00: Medical Branch fidaxomicin 2020-07 Yes [id number] 200mg Take 1 Univers 200 mg 1-24 tablet by ity of tablet 00:00: mouth 2 (two) Medical times Branch daily. proMETHazin 2020-07 Yes [id number] 25mg Take 1 Univers e 25 mg [...] 4 gram 1-24 ity of packet 00:00: [place] Medical Branch cholestyram 2020-07 Yes Univer s ine 4 gram 1-24 ity of packet 00:00: Medical Branch cholestyram 2020-07 Yes Univer s ine 4 gram 1-24 ity of packet 00:00: Medical Branch fidaxomicin 2020-07 Yes [id number] 200mg Take 1 Univers 200 mg 1-24 tablet by ity of tablet 00:00: mouth 2 (two) Medical times Branch daily. proMETHazin 2020-07 Yes [id number] 25mg Take 1 Univers e 25 mg 1-24 tablet by ity of tablet 00:00: mouth every 6 Medical (six) Branch hours as needed for Nausea and Vomiting (N/V). cholestyram 2020-07 No Unive rs ine 4 gram 08-07 05-11 ity of packet 00:00: 00:00 [place] 00 :00 Medical Branch fidaxomicin 2020-07- No [id number] 200mg Take 1 Univers 200 mg 08-07 tablet by ity of tablet 00:00: 00:00 mouth 2 [place] 00 :00 (two) Medical times Branch daily. proMETHazin 2020-07- No [id number] 25mg Take 1 Univers e 25 mg 08-07 tablet by ity of tablet 00:00: 00:00 mouth [place] 00 :00 every 6 Medical (six) Branch hours as needed for Nausea and Vomiting (N/V). FENTanyl PF No 50ug 50 mcg, Un ela (SUBLIMAZE 5 05-10 Intravenou it y of (PF)) 02:45: 01:34 s, ONCE, 1 [place] injection 00 :00 dose, [place] [facility] 50 mcg 11/20/20 at Branch 2145, Routine cefTRIAXone No 1000mg 1,000 mg, Univers (ROCEPHIN) 5- 05-10 IV ity of 1,000 mg in 02:30: 01:55 Piggyback, [place] NaCl 0.9% 00 :00 ONCE, 1 Medical (NS) 50 mL dose, [facility] ch MINI-BAG 11/20/20 at 2130, 50 mL
Reas on for Anti-Infec tive: Documented Infection< br>Documen lester Infection Site: Urine
D uration of Therapy: 7 days famotidine No 20mg 20 mg, Univ ers (PEPCID 5-10 05-10 Slow IV ity of (PF)) 01:00: 00:12 Push, [place] injection 00 :00 ONCE, 1 Medical 20 mg dose, [facility] 11/20/20 at 2000, SAHARA proMETHazin No 25mg 25 mg, IV Univers e 5-10 05-10 Piggyback, ity of (PHENERGAN) 00:45: 00:11 ONCE, 1 [place] 25 mg in 00 :00 dose, [place] [facility] NaCl 0.9% 11/20/20 at [facility] h (NS) 50 mL 1945, 50 piggyback mL FENTanyl PF No 50ug 50 mcg, Un ela (SUBLIMAZE 5-10 05-10 Intravenou it y of (PF)) 00:45: 00:12 s, ONCE, 1 [place] injection 00 :00 dose, [place] [facility] 50 mcg 11/20/20 at Branch 1945, Routine NaCl 0.9% No 1000mL at 999 Uni vers (NS) bolus 5-10 05-10 mL/hr, ity of infusion 00:00: 01:47 1,000 mL, Tim as 1,000 mL 00 :00 IV Medical Infusion, [place] ONCE, 1 dose, [place] 11/20/20 at 1900, SAHARA cefdinir 2020- No [id number] 300mg Take 1 U nivers 300 mg 11-20 05-20 capsule by ity of capsule 00:00: 04:59 mouth 2 [place] 00 :00 (two) Medical times [place] daily for 10 days. buPROPion No 150mg [...] IV 1,000 mL 11:04: ml/hr, Herm philip 00 Infuse over: 10 hr, Route: IV, Dosing Weight 131.818 kg, Total Volume: 1,000, Start date: 05/22/18 5:04:00 TITLE SEARCHER, Duration: 30 day, Stop date: 06/21/18 5:03:00 TITLE SEARCHER, 2.4, m2 normal 2017-07 No 1,000 mL, Memori a saline 0.9% 1-08 Rate: 100 l IV 1,000 mL 11:04: ml/hr, Herm philip 00 Infuse over: 10 hr, Route: IV, Dosing Weight 131.818 kg, Total Volume: 1,000, Start date: 05/22/18 5:04:00 TITLE SEARCHER, Duration: 30 day, Stop date: 06/21/18 5:03:00 TITLE SEARCHER, 2.4, m2 normal 2017-07 No 1,000 mL, Memori a saline 0.9% 1-08 Rate: 100 l IV 1,000 mL 11:04: ml/hr, Herm philip 00 Infuse over: 10 hr, Route: IV, Dosing Weight 131.818 kg, Total Volume: 1,000, Start date: 05/22/18 5:04:00 TITLE SEARCHER, Duration: 30 day, Stop date: 06/21/18 5:03:00 TITLE SEARCHER, 2.4, m2 Magnesium 2017-07 No Notes: Memori a Sulfate 1-08 WASTE: F/P l 10:36: - Sink; E [place] - Municipal Trash Bin Isolyte S 2017-07 No Notes: Memori a PH-7.4 1-08 (Same as: l (Bolus) IV 10:36: Isolyte S He rmann 00 PH 7.4) Magnesium 2017-07 No Notes: Memori a Sulfate 1-08 WASTE: F/P l 10:36: - Sink; E [place] - Municipal Trash Bin Isolyte S 2017-07 No Notes: Memori a PH-7.4 1-08 (Same as: l (Bolus) IV 10:36: Isolyte S He rmann 00 PH 7.4) Magnesium 2017-07 No Notes: Memori a Sulfate 1-08 WASTE: F/P l 10:36: - Sink; E [place] - Municipal Trash Bin Isolyte S 2017-07 No Notes: Memori a PH-7.4 1-08 (Same as: l (Bolus) IV 10:36: Isolyte S He rmann 00 PH 7.4) Phenergan 2017-07 No 12.5 mg, Erwin benjamin 1-08 0.5 mL, l 10:35: Route: [place] 00 IVPB, Drug form: INJ, ONCE, Dosing Weight 131.818, kg, Priority: STAT, Start date: 05/22/18 4:35:00 TITLE SEARCHER, Stop date: 05/22/18 4:35:00 TITLE SEARCHER Phenergan 2018-1 No 12.5 mg, Erwin benjamin 1-08 0.5 mL, l 10:35: Route: Jason IVPB, Drug form: INJ, ONCE, Dosing Weight 131.818, kg, Priority: STAT, Start date: 05/22/18 4:35:00 TITLE SEARCHER, Stop date: 05/22/18 4:35:00 TITLE SEARCHER Phenergan 2017- No 12.5 mg, Erwin benjamin 1-08 0.5 mL, l 10:35: Route: [place] IVPB, Drug form: INJ, ONCE, Dosing Weight 131.818, kg, Priority: STAT, Start date: 05/22/18 4:35:00 TITLE SEARCHER, Stop date: 05/22/18 4:35:00 TITLE SEARCHER Docusate 2018-0 Yes 100 mg = 1 Mem oria Sodium 100 5-08 cap, PO, l MG Oral 14:56: BID, 0 [place] Capsule 00 Refill(s) Zosyn 2018-0 Yes 0 Memoria 5-08 Refill(s) l 14:56: [place] 00 celecoxib 2017-0 Yes 200 mg = 1 Me moria 200 mg oral 5-08 cap, PO, l capsule 14:56: BID, 0 [place] 00 Refill(s) ascorbic 2017-0 Yes 500 mg = 1 Mem oria acid 5-08 tab, PO, l 14:56: BID, 0 [place] 00 Refill(s) acetaminoph 2018-0 Yes 1,000 mg = Memoria en 500 mg 5-08 2 tab, PO, l oral tablet 14:56: Q6Hnow, 0 H ermann 00 Refill(s) Oxycodone 2017-0 Yes 5 mg = 1 Erwin benjamin Hydrochlori 5-08 tab, PO, l de 5 MG 14:56: Q4H, PRN Christian n Oral Tablet 00 Pain Score 4-6, 0 Refill(s) zinc 2017-0 Yes 220 mg = 1 Memoria sulfate [...] 5-08 TOP, l de 0.05 14:56: Daily, [place] MG/MG 00 Remove Transdermal after 12 Patch hours, 0 [Lidoderm] Refill(s) Docusate Yes 100 mg = 1 Mem oria Sodium 100 5-08 cap, PO, l MG Oral 14:56: BID, 0 [place] Capsule 00 Refill(s) Zosyn Yes 0 Memoria 5-08 Refill(s) l 14:56: [place] 00 celecoxib Yes 200 mg = 1 Me moria 200 mg oral 5-08 cap, PO, l capsule 14:56: BID, 0 [place] 00 Refill(s) ascorbic Yes 500 mg = 1 Mem oria acid 5-08 tab, PO, l 14:56: BID, 0 [place] 00 Refill(s) acetaminoph Yes 1,000 mg = [...] tab, PO, l tablet 14:56: Q8H, PRN [place] 00 Anxiety, 0 Refill(s) Lidocaine Yes 3 patch, Erwin benjamin Hydrochlori 5-08 TOP, l de 0.05 14:56: Daily, [place] MG/MG 00 Remove Transdermal after 12 Patch hours, 0 [Lidoderm] Refill(s) Docusate Yes 100 mg = 1 Mem oria Sodium 100 5-08 cap, PO, l MG Oral 14:56: BID, 0 [place] Capsule 00 Refill(s) Zosyn Yes 0 Memoria 5-08 Refill(s) l 14:56: [place] 00 celecoxib Yes 200 mg = 1 Me moria 200 mg oral 5-08 cap, PO, l capsule 14:56: BID, 0 [place] 00 Refill(s) ascorbic Yes 500 mg = [...] = 1 Me moria 0.5 mg oral 508 tab, PO, l tablet 14:56: Q8H, PRN [place] 00 Anxiety, 0 Refill(s) Lidocaine Yes 3 patch, Erwin benjamin Hydrochlori 5-08 TOP, l de 0.05 14:56: Daily, [place] MG/MG 00 Remove Transdermal after 12 Patch hours, 0 [Lidoderm] Refill(s) Robaxin No Notes: Memoria 5-06 (Same l 21:00: as:Robaxin [place] 00 ) Robaxin No Notes: Memoria 5-06 (Same l 21:00: as:Robaxin [place] ) Robaxin No Notes: Memoria 5-06 (Same l 21:00: as:Robaxin [place] 00 ) Oxycodone No Notes: Memori a Hydrochlori 5-06 (Same as: l de 5 MG 18:06: Roxicodone Herm philip Oral Tablet 00 ) Oxycodone No Notes: Memori a Hydrochlori 5-06 (Same as: l de 5 MG 18:06: Roxicodone Herm philip Oral Tablet 00 ) Oxycodone No Notes: Memori a Hydrochlori 5-06 (Same as: l de 5 MG 18:06: Roxicodone Herm philip Oral Tablet 00 ) Ativan No Notes: Memoria 5-06 (Same as: l 15:18: Ativan) Jason 00 Ativan No Notes: Memoria 5-06 (Same as: l 15:18: Ativan) [place] 00 Ativan No Notes: Memoria 5-06 (Same as: l 15:18: Ativan) [place] Trazodone No Notes: Memori a Hydrochlori 5-06 (Same As: l de 50 MG 02:00: Desyrel) Kristen nn Oral Tablet 00 remove No Notes: Memoria patch 5-06 Remove l 02:00: patch 12 [place] 00 hours after applicatio n each day. [...] Roxicodone Herm philip Oral Tablet 00 ) Oxycodone No Notes: Memori a Hydrochlori 5-05 (Same as: l de 5 MG 22:01: Roxicodone Herm philip Oral Tablet 00 ) Oxycodone No Notes: Memori a Hydrochlori 5-05 (Same as: l de 5 MG 22:01: Roxicodone Herm philip Oral Tablet 00 ) Celebrex No Notes: Memoria 5-05 NSAID. l 22:00: Please [place] 00 check indication . Not for seizure. (Same As: CeleBREX) Celebrex 0 No Notes: Memoria 5-05 NSAID. l 22:00: Please [place] 00 check indication . Not for seizure. (Same As: CeleBREX) Celebrex No Notes: Memoria 5-05 NSAID. l 22:00: Please [place] 00 check indication . Not for seizure. (Same As: CeleBREX) Vancomycin 2018-0 No 2001 mg: Me moria 5-05 infuse l 21:00: over 2.5 [place] 00 hours Vancomycin 2018-0 No 2001 mg: Me moria 5-05 infuse l 21:00: over 2.5 [place] 00 hours Vancomycin 2018-0 No 2001 mg: Me moria 5-05 infuse l 21:00: over 2.5 [place] 00 hours Lidocaine 2017-0 No Notes: Memori a Hydrochlori 5-05 Apply [...] Memoria 5-04 Same as l 22:40: Dilaudid [place] 00 Phenergan No Notes: Do Mem oria 5-04 not give l 22:40: IV push. [place] 00 (Same as: Phenergan) Dilaudid No Notes: Memoria 5-04 Same as l 22:40: Dilaudid [place] 00 Phenergan No Notes: Do Mem oria 5-04 not give l 22:40: IV push. [place] 00 (Same as: Phenergan) Dilaudid No Notes: Memoria 5-04 Same as l 22:40: Dilaudid [place] Tramadol No Notes: Not Mem oria 5-04 to exceed l 22:00: 400mg/day. [place] (Same As: Ultram) gabapentin No Notes: Memor ia 5-04 (Same as: l 22:00: Neurontin) Acetaminoph No Notes: Max Memoria en 5-04 acetaminop l 22:00: hen 4000 [place] 00 mg/day (4 gm/day). (Same as: Tylenol Extra Strength) Robaxin No Notes: Memoria 5-04 (Same l 22:00: as:Robaxin [place] ) Tramadol No Notes: Not Mem oria 5-04 to exceed l 22:00: 400mg/day. [place] 00 (Same As: Ultram) gabapentin No Notes: Memor ia 5-04 (Same as: l 22:00: Neurontin) [place] Acetaminoph No Notes: Max Memoria en 5-04 acetaminop l 22:00: hen 4000 [place] 00 mg/day (4 gm/day). (Same as: Tylenol Extra Strength) Robaxin No Notes: Memoria 5-04 (Same l 22:00: as:Robaxin [place] ) Tramadol No Notes: Not Mem oria 5-04 to exceed l 22:00: 400mg/day. [place] 00 (Same As: Ultram) gabapentin No Notes: Memor ia 5-04 (Same as: l 22:00: Neurontin) [place] Acetaminoph No Notes: Max Memoria en 5-04 acetaminop l 22:00: hen 4000 [place] 00 mg/day (4 gm/day). (Same as: Tylenol Extra Strength) Robaxin No Notes: Memoria 5-04 (Same l 22:00: as:Robaxin [place] 00 ) Oxycodone No Notes: Memori a Hydrochlori 5-04 (Same as: l de 5 MG 21:33: Roxicodone Herm philip Oral Tablet 00 ) Oxycodone No Notes: Memori a Hydrochlori 5-04 (Same as: l de 5 MG 21:33: Roxicodone Herm philip Oral Tablet 00 ) Oxycodone No Notes: Memori a Hydrochlori 5-04 (Same as: l de 5 MG 21:33: Roxicodone Herm philip Oral Tablet 00 ) Beneprotein No Notes: Erwin benjamin 7 gm pkt 5-04 (Same as: l 21:30: Beneprotei [place] 00 n) Beneprotein No Notes: Erwin benjamin 7 gm pkt 5-04 (Same as: l 21:30: Beneprotei [place] 00 n) Beneprotein 0 No Notes: Erwin benjamin 7 gm pkt - (Same as: l 21:30: Beneprotei n) Acetaminoph 2017-0 No 1 tab, PO, Memoria en 325 [...] 10 MG Oral Tablet [Percocet 10/325] Dilaudid 0 No 0.5 mg, Memori a 5-04 0.25 mL, l 16:01: Route: IVP, Drug form: INJ, ONCE, Start date: 11/15/17 11:01:00 CDT, Stop date: 11/15/17 11:01:00 CDT Dilaudid 2017-0 No 0.5 mg, Memori a 5-04 0.25 mL, l 16:01: Route: IVP, Drug form: INJ, ONCE, Start date: 11/15/17 11:01:00 CDT, Stop date: 11/15/17 11:01:00 CDT Dilaudid 2017-0 No 0.5 mg, Memori a 5-04 0.25 mL, l 16:01: Route: IVP, Drug form: INJ, ONCE, Start date: 11/15/17 11:01:00 CDT, Stop date: 11/15/17 11:01:00 CDT Phenergan 2017-0 No Notes: Memori a 5-04 (Same as: l 15:43: Phenergan) Dilaudid 2017-0 No 2 mg, Memoria 5-04 Route: l [...] Memoria 5-04 Route: l 15:43: IVP, ONCE, [place] 00 Dosing Weight 127.027, kg, Priority: STAT, Start date: 11/15/17 10:43:00 CDT, Stop date: 11/15/17 10:43:00 CDT Docusate No Notes: Memoria 5-04 (Same as: l 14:00: Colace) (Do Not Crush) Zinc No Notes: Memoria Sulfate 5-04 (Zinc l 14:00: sulfate [place] capsule) - 220 mg Zinc sulfate = 50 mg elemental zinc Same as Zinc Sulfate ascorbic No Notes: Memoria acid 5-04 (Same as: l 14:00: Vitamin C) multivitami No Notes: Erwin benjamin n 5-04 (Same l 14:00: as:Thera) WASTE: F/P - Black; E - Municipal Trash Bin Take with food. Docusate No Notes: Memoria 5-04 (Same as: l 14:00: Colace) [place] (Do Not Crush) Zinc No Notes: Memoria Sulfate 5-04 (Zinc l 14:00: sulfate Jason capsule) - 220 mg Zinc sulfate = 50 mg elemental zinc Same as Zinc Sulfate ascorbic No Notes: Memoria acid 5-04 (Same as: l 14:00: Vitamin C) Jason 00 multivitami No Notes: Erwin benjamin n 5-04 (Same l 14:00: as:Thera) Jason 00 WASTE: F/P - Black; E - Municipal Trash Bin Take with food. Docusate No Notes: Memoria 5-04 (Same as: l 14:00: Colace) (Do Not Crush) Zinc No Notes: Memoria Sulfate -04 (Zinc l 14:00: sulfate [place] 00 capsule) - 220 mg Zinc sulfate = 50 mg elemental zinc Same as Zinc Sulfate ascorbic No Notes: Memoria acid -04 (Same as: l 14:00: Vitamin C) [place] 00 multivitami No Notes: Erwin benjamin n 5-04 (Same l 14:00: as:Thera) WASTE: F/P - Black; E - Municipal Trash Bin Take with food. Naproxen No Notes: Memoria 5-04 (Same as: l 07:00: Naprosyn) [place] 00 Take with food. Zosyn No Notes: Memoria 5-04 (Same as: l 07:00: Zosyn) [place] 00 Dosing based on Piperacill in component MEDICATION WASTE Product Size: 3375 mg Product Wasted: ___ mg Vancomycin No 2001 mg: Me moria 5-04 infuse l 07:00: over 2.5 [place] 00 hours For adult patients only: Round to nearest 250 mg per Medical Staff approval MEDICATION WASTE Product Size: 1000 mg Product Wasted: ___ mg Enoxaparin No Notes: Memor ia -04 (Same as: l 07:00: Lovenox) [place] Naproxen No Notes: Memoria 5-04 (Same as: l 07:00: Naprosyn) [place] Take with food. Zosyn No Notes: Memoria 5-04 (Same as: l 07:00: Zosyn) Jason 00 [...] ia 5-04 (Same as: l 07:00: Lovenox) [place] Naproxen No Notes: Memoria - (Same as: l 07:00: Naprosyn) [place] Take with food. Zosyn No Notes: Memoria - (Same as: l 07:00: Zosyn) Dosing based on Piperacill in component MEDICATION WASTE Product Size: 3375 mg Product Wasted: ___ mg Vancomycin No 2001 mg: Me moria - infuse l 07:00: over 2.5 Jason 00 hours For adult patients only: Round to nearest 250 mg per Medical Staff approval MEDICATION WASTE Product Size: 1000 mg Product Wasted: ___ mg Enoxaparin No Notes: Memor ia 11-15 (Same as: l 07:00: Lovenox) Jason Sodium [...] 0.9% 11-15 (Same as: l 06:46: BD [place] 00 Posiflush) Acetaminoph No Notes: Do M emoria en -04 not exceed l 06:46: 4 gm/day. [place] 00 (Same as: Tylenol) Acetaminoph No Notes: Erwin benjamin en 325 MG / -04 (Same as: l Hydrocodone 06:46: [place] Kristen nn Bitartrate 00 325/5) Do 5 [...] 0.9% 5-04 (Same as: l 06:46: BD [place] 00 Posiflush) Acetaminoph No Notes: Do M emoria en 5-04 not exceed l 06:46: 4 gm/day. [place] 00 (Same as: Tylenol) Acetaminoph No Notes: Erwin benjamin en 325 MG / 5-04 (Same as: l Hydrocodone 06:46: [place] Kristen nn Bitartrate 00 325/5) Do 5 [...] / 5-04 (Same as: l Hydrocodone 06:46: [place] Kristen nn Bitartrate 00 325/5) Do 5 MG Oral not exceed Tablet 4gm/day of acetaminop hen. Reglan No Notes: Memoria 5-04 (Same as: l 04:27: Reglan) [place] Benadryl No Notes: Memoria 5-04 (Same as: l 04:27: Benadryl) Jason 00 Reglan No Notes: Memoria 5-04 (Same as: l 04:27: Reglan) [place] Benadryl No Notes: Memoria 5-04 (Same as: l 04:27: Benadryl) [place] Reglan No Notes: Memoria 5-04 (Same as: l 04:27: Reglan) [place] Benadryl No Notes: Memoria 5-04 (Same as: l 04:27: Benadryl) Magnesium No Notes: Memori a Sulfate 5-04 WASTE: F/P l 04:26: - Sink; E Jason - Municipal Trash Bin Sodium No 1,000 mL, Memori a Chloride 5-04 1000 l 0.9% 04:26: ml/hr, [place] (Bolus) IV 00 Infuse Over: 1 hr, Route: IV, 1,000, Drug form: INJ, ONCE, Priority: STAT, Dosing Weight 127.273 kg, Start date: 11/14/17 23:26:00 CDT, Stop date: 11/14/17 23:26:00 CDT Magnesium No Notes: Memori a Sulfate 5-04 WASTE: F/P l 04:26: - Sink; E [place] - Municipal Trash Bin Sodium No 1,000 mL, Memori a Chloride 5-04 1000 l 0.9% 04:26: ml/hr, [place] (Bolus) IV 00 Infuse Over: 1 hr, Route: IV, 1,000, Drug form: INJ, ONCE, Priority: STAT, Dosing Weight 127.273 kg, Start date: 11/14/17 23:26:00 CDT, Stop date: 11/14/17 23:26:00 CDT Magnesium No Notes: Memori a Sulfate 5-04 WASTE: F/P l 04:26: - Sink; E Jason - Municipal Trash Bin Sodium 2018-0 No 1,000 mL, Memori a Chloride - 1000 l 0.9% 04:26: ml/hr, Jason (Bolus) IV 00 Infuse Over: 1 hr, Route: IV, 1,000, Drug form: INJ, ONCE, Priority: STAT, Dosing Weight 127.273 kg, Start date: 11/14/17 23:26:00 CDT, Stop date: 11/14/17 23:26:00 CDT Zosyn 2018-0 No 4.5 gm, Memoria 5-04 Route: l 04:10: IVPB, [place] 00 ONCE, Dosing Weight 127.273, kg, Priority: STAT, Start date: 11/14/17 23:10:00 CDT, Stop date: 11/14/17 23:10:00 CDT, ABX Indication : Bacteremia Vancomycin 2018-0 No 2000 mg: Me moria 5-04 infuse l 04:10: over 2.5 [place] 00 hours For adult patients only: Round to nearest 250 mg per Medical Staff approval MEDICATION WASTE Product Size: 1000 mg Product Wasted: ___ mg Zosyn 2018-0 No 4.5 gm, Memoria 5-04 Route: l 04:10: IVPB, [place] 00 ONCE, Dosing Weight 127.273, kg, Priority: STAT, Start date: 11/14/17 23:10:00 CDT, Stop date: 11/14/17 23:10:00 CDT, ABX Indication : Bacteremia Vancomycin 2018-0 No 2000 mg: Me moria 5-04 infuse l 04:10: over 2.5 [place] 00 hours For adult patients only: Round to nearest 250 mg per Medical Staff approval MEDICATION WASTE Product Size: 1000 mg Product Wasted: ___ mg Zosyn 2018-0 No 4.5 gm, Memoria 5-04 Route: l 04:10: IVPB, Jason 00 ONCE, Dosing Weight 127.273, kg, Priority: STAT, Start date: 11/14/17 23:10:00 CDT, Stop date: 11/14/17 23:10:00 CDT, ABX Indication : Bacteremia Vancomycin 2018-0 No 2000 mg: Me moria 5-04 infuse l 04:10: over 2.5 [place] 00 hours For adult patients only: Round to nearest 250 mg per Medical Staff approval MEDICATION WASTE Product Size: 1000 mg Product Wasted: ___ mg normal 2018-0 No 1,000 mL, Memori a saline 0.9% 5-04 Rate: 75 l IV 1,000 mL 03:39: ml/hr, Herm phliip 00 Infuse over: 13.3 hr, Route: IV, Dosing Weight 127.273 kg, Total Volume: 1,000, Start date: 11/14/17 22:39:00 CDT, Duration: 30 day, Stop date: 12/14/17 22:38:00 CDT, 2.36, m2 normal 2018-0 No 1,000 mL, Memori a saline 0.9% 5-04 Rate: 75 l IV 1,000 mL 03:39: ml/hr, Herm philip 00 Infuse over: 13.3 hr, Route: IV, Dosing Weight 127.273 kg, Total Volume: 1,000, Start date: 11/14/17 22:39:00 CDT, Duration: 30 day, Stop date: 12/14/17 22:38:00 CDT, 2.36, m2 normal 2018 No 1,000 mL, Memori a saline 0.9% 5-04 Rate: 75 l IV 1,000 mL 03:39: ml/hr, Herm philip 00 Infuse over: 13.3 hr, Route: IV, Dosing Weight 127.273 kg, Total Volume: 1,000, Start date: 11/14/17 22:39:00 CDT, Duration: 30 day, Stop date: 12/14/17 22:38:00 CDT, 2.36, m2 Acetaminoph No Notes: Max Memoria en 5-04 acetaminop l 02:56: hen 4000 [place] 00 mg/day (4 gm/day). (Same as: Tylenol Extra Strength) Acetaminoph No Notes: Max Memoria en 5-04 acetaminop l 02:56: hen 4000 [place] 00 mg/day (4 gm/day). (Same as: Tylenol Extra Strength) Acetaminoph No Notes: Max Memoria en 5-04 acetaminop l 02:56: hen 4000 [place] 00 mg/day (4 gm/day). (Same as: Tylenol Extra Strength) Rocephin 0 No Notes: Memoria 5-04 (Same As: l [...] mg Morphine 2018-0 No 4 mg, Memoria 5-04 Route: l 00:05: IVP, ONCE, Dosing Weight 127.273, kg, Priority: STAT, Start date: 11/14/17 19:05:00 CDT, Stop date: 11/14/17 19:05:00 CDT Morphine 2018-0 No 4 mg, Memoria 5-04 Route: l 00:05: IVP, ONCE, Dosing Weight 127.273, kg, Priority: STAT, Start date: 11/14/17 19:05:00 CDT, Stop date: 11/14/17 19:05:00 CDT Morphine 2018-0 No 4 mg, Memoria 5-04 Route: l 00:05: IVP, ONCE, Dosing Weight [...] CDT, Stop date: 11/14/17 17:56:00 CDT Benadryl 2018-0 No Notes: Memoria 5-03 (Same as: l 22:56: Benadryl) Morphine 2018-0 No 4 mg, 1 Memori a 5-03 mL, Route: l 22:56: IVP, Drug form: SOLN, ONCE, Dosing Weight 127.273, kg, Priority: STAT, Start date: 11/14/17 17:56:00 CDT, Stop date: 11/14/17 17:56:00 CDT Benadryl 2018-0 No Notes: [facility] 5-03 (Same as: l 22:56: Benadryl) Morphine 2018-0 No 4 mg, 1 Memori a 5-03 mL, Route: l 22:56: IVP, Drug form: SOLN, ONCE, Dosing Weight 127.273, kg, Priority: STAT, Start date: 11/14/17 17:56:00 CDT, Stop date: 11/14/17 17:56:00 CDT OXYCODONE 2016-07 Yes Take by [facility] rs HCL/ACETAMI 2-20 mouth. ity of NOPHEN 10:03: [place] ([facility] 17 Medical ORAL) [place] OXYCODONE 2016-07 Yes Take by Unive rs HCL/ACETAMI 2-20 mouth. ity of NOPHEN 04:03: [place] ([facility] 17 Medical ORAL) [place] OXYCODONE 2016- Yes Take by Unive rs HCL/ACETAMI 2-20 mouth. ity of NOPHEN 04:03: [place] ([facility] 17 Medical ORAL) [place] OXYCODONE 2016-07 Yes Take by Unive rs HCL/ACETAMI 2-20 mouth. ity of NOPHEN 04:03: [place] ([facility] 17 Medical ORAL) [place] OXYCODONE 2016-07 Yes Take by Unive rs HCL/ACETAMI 2-20 mouth. ity of NOPHEN 04:03: [place] ([facility] 17 Medical ORAL) Branch dicyclomine 2016-07 [...] ity of mg tablet 00:00: mouth 4 [place] 00 (four) Medical times Branch daily. proMETHazin 2016-07 Yes 25mg Take 1 [facility] ers e 25 mg 2-20 tablet by ity of tablet 00:00: mouth [place] 00 every 6 Medical (six) Branch hours as needed for Nausea and Vomiting (N/V). dicyclomine 2016-07 Yes 20mg Take 1 Univ ers (BENTYL) 20 2-20 tablet by ity of mg tablet 00:00: mouth [place] 00 (four) Medical times Branch daily. proMETHazin [...] for up to 12 doses. proMETHazin 2016- No 25mg Take 1 Uni vers e 25 mg 1-04 05-11 tablet by ity of tablet 00:00: 00:00 mouth [place] 00 :00 every 6 Medical (six) Branch hours as needed for Nausea and Vomiting (N/V) for up to 12 doses. Immunizations Ordered Filled Immunization Date Status Comments [facility] e Immunization Name Name SARS-COV-2 COVID-19 2021-01-01 Completed Unive rsity of MODERNA, 6MO-5YRS, 00:00:00 [place] [facility] 0.25ML VACCINE Branch SARS-COV-2 COVID-19 2021-01-01 Completed Unive rsity of MODERNA, 6MO-5YRS, 00:00:00 [place] [facility] 0.25ML VACCINE Branch SARS-COV-2 COVID-19 2020-02-01 Completed Unive rsity of MODERNA 12+ YRS 00:00:00 [place] [facility] ical VACCINE Branch SARS-COV-2 COVID-19 2020-02-01 Completed Unive rsity of MODERNA 12+ YRS 00:00:00 [place] [facility] VACCINE Branch SARS-COV-2 COVID-19 2020-01-02 Completed Unive rsity of MODERNA 12+ YRS 00:00:00 [facility] ical VACCINE Branch SARS-COV-2 COVID-19 2020-01-02 Completed Unive rsity of MODERNA 12+ YRS 00:00:00 [facility] ical VACCINE Branch Vital Signs Vital Name Observation Time Observation Value Comments Source Systolic blood 2022-05-21 18:00:00 136 mm[Hg] Univer sity of pressure [facility] Diastolic blood 2022-05-21 18:00:00 92 mm[Hg] Unive rsity of pressure [facility] Heart rate 2022-05-21 18:00:00 99 /min [facility] Body temperature 2022-05-21 18:00:00 35.83 Abi Univ ersity [facility] Respiratory rate 2022-05-21 18:00:00 18 /min [facility] [place] [facility] Oxygen saturation in 2022-05-21 18:00:00 95 /min [facility] Arterial blood by [place] [facility] P[facility] oxim[facility] Body weight 2022-05-21 10:45:00 135.988 kg [facility] [place] [facility] BMI 2022-05-21 10:45:00 60.55 kg/m2 [facility] [place] [facility] Body height 2022-05-21 02:02:00 149.9 cm [facility] [place] [facility] Systolic blood 2022-05-15 01:11:00 166 mm[Hg] Univer sity of pressure [place] [facility] Diastolic blood 2022-05-15 01:11:00 93 mm[Hg] Unive rsity of pressure [place] [facility] Heart rate 2022-05-15 01:09:00 106 /min [facility] [place] [facility] [place] Body temperature 2022-05-15 01:09:00 36.89 Abi [facility] [place] [facility] Respiratory rate 2022-05-15 01:09:00 20 /min [facility] [place] [facility] Body weight 2022-05-15 01:09:00 127.007 kg [facility] [place] [facility] BMI 2022-05-15 01:09:00 56.55 kg/m2 [facility] [place] [facility] Oxygen saturation in 2022-05-15 01:09:00 96 /min [facility] Arterial blood by [facility] Pulse oximetry Branch Systolic blood 2022-05-13 03:00:00 138 mm[Hg] Univer sity of pressure [place] [facility] Diastolic blood 2022-05-13 03:00:00 82 mm[Hg] Unive rsity of pressure [place] [facility] Heart rate 2022-05-13 03:00:00 102 /min [facility] [place] [facility] Respiratory rate 2022-05-13 03:00:00 20 /min [facility] [place] [facility] Oxygen saturation in 2022-05-13 03:00:00 97 /min [facility] Arterial blood by [facility] Pulse oximetry Branch Body temperature 2022-05-13 00:13:00 36.5 Abi [facility] [place] [facility] Body weight 2022-05-13 00:13:00 132.904 kg [facility] [place] [facility] BMI 2022-05-13 00:13:00 59.18 kg/m2 [facility] [place] [facility] Systolic blood 2022-05-06 12:42:00 128 mm[Hg] Univer sity of pressure [place] [facility] Diastolic blood 2022-05-06 12:42:00 83 mm[Hg] Unive rsity of pressure [place] [facility] Heart rate 2022-05-06 12:42:00 111 /min [facility] [place] [facility] Body temperature 2022-05-06 12:42:00 35.94 Abi [facility] [place] [facility] Respiratory rate 2022-05-06 12:42:00 18 /min [facility] [place] [facility] Oxygen saturation in 2022-05-06 12:42:00 95 /min [facility] Arterial blood by [place] Pulse oximetry [facility] Body weight 2022-05-06 10:22:00 132.995 kg [facility] [place] [facility] BMI 2022-05-06 10:22:00 59.22 kg/m2 [facility] [place] [facility] Body height 2022-05-04 11:00:00 149.9 cm [facility] [place] [facility] Systolic blood 2022-02-23 17:14:00 130 mm[Hg] Univer sity of pressure [place] [facility] Diastolic blood 2022-02-23 17:14:00 83 mm[Hg] Unive rsity of pressure [place] [facility] Heart rate 2022-02-23 17:14:00 100 /min [facility] [place] [facility] Body temperature 2022-02-23 17:14:00 36.72 Abi [facility] [place] [facility] Respiratory rate 2022-02-23 17:14:00 20 /min [facility] [place] [facility] Oxygen saturation in 2022-02-23 17:14:00 96 /min [facility] Arterial blood by [employer] [facility] Pulse oximetry [facility] Body height 2022-02-15 10:00:00 149.9 cm [facility] [place] [facility] Body weight 2022-02-15 10:00:00 123 kg [facility] [place] [facility] BMI 2022-02-15 10:00:00 54.77 kg/m2 [facility] [place] [facility] Systolic blood 2022-02-20 12:40:00 107 mm[Hg] Univer sity of pressure [place] [facility] Diastolic blood 2022-02-20 12:40:00 64 mm[Hg] Unive rsity of pressure [place] [facility] Heart rate 2022-02-20 12:40:00 99 /min [facility] [place] [facility] Body temperature 2022-02-20 12:40:00 36.83 Abi [facility] ers[facility] [place] [facility] Respiratory rate 2022-02-20 12:40:00 18 /min [facility] [place] [facility] Oxygen saturation in 2022-02-20 12:40:00 95 /min [facility] Arterial blood by [place] [facility] Pulse oxim[facility] Body height 2022-02-15 10:00:00 149.9 cm [facility] [place] [facility] Body weight 2022-02-15 10:00:00 123 kg [facility] [place] [facility] BMI 2022-02-15 10:00:00 54.77 kg/m2 [facility] [place] [facility] Heart rate 2022-02-10 23:00:00 91 /min [facility] [place] [facility] Oxygen saturation in 2022-02-10 23:00:00 95 /min [facility] blood by [place] Pulse oxim[facility] Systolic blood 2022-02-10 22:02:00 134 mm[Hg] Univer sity of pressure [place] [facility] Diastolic blood 2022-02-10 22:02:00 83 mm[Hg] Unive rsity of pressure [place] [facility] Body temperature 2022-02-10 21:00:00 36.83 Abi Univ [facility] [place] [facility] Respiratory rate 2022-02-10 21:00:00 28 /min [facility] [place] [facility] Body weight 2022-02-10 09:00:00 134.99 kg [facility] [place] [facility] BMI 2022-02-10 09:00:00 60.08 kg/m2 [facility] [place] [facility] Body height 2022-02-07 22:22:00 149.9 cm [facility] [place] [facility] Systolic blood 2022-01-27 03:38:00 126 mm[Hg] Univer sity of pressure [place] [facility] Diastolic blood 2022-01-27 03:38:00 90 mm[Hg] Unive rsity of pressure [place] [facility] Heart rate 2022-01-27 03:38:00 97 /min [facility] [place] [facility] Respiratory rate 2022-01-27 03:38:00 18 /min [facility] [place] [facility] Oxygen saturation in 2022-01-27 03:38:00 97 /min [facility] blood by [place] [facility] P[facility] Body temperature 2022-01-26 22:09:00 36.94 Abi [facility] [place] [facility] Body height 2022-01-26 22:09:00 149.9 cm [facility] [place] [facility] Body weight 2022-01-26 22:09:00 127.007 kg [facility] [place] [facility] BMI 2022-01-26 22:09:00 56.55 kg/m2 [facility] [place] [facility] Systolic blood 2022-01-17 11:00:00 143 mm[Hg] Univer sity of pressure [place] [facility] Diastolic blood 2022-01-17 11:00:00 91 mm[Hg] Unive rsity of pressure [place] [facility] Heart rate 2022-01-17 11:00:00 100 /min [facility] [place] [facility] Respiratory rate 2022-01-17 11:00:00 16 /min [facility] [place] [facility] Oxygen saturation in 2022-01-17 11:00:00 96 /min [facility] Arterial blood by [facility] Pulse oximetry Branch Body temperature 2022-01-17 09:55:00 36.89 Abi [facility] ers[facility] [place] [facility] Body height 2022-01-17 09:55:00 149.9 cm [facility] [place] [facility] Body weight 2022-01-17 09:55:00 127.007 kg [facility] [place] [facility] BMI 2022-01-17 09:55:00 56.55 kg/m2 [facility] [place] [facility] Systolic blood 2022-01-13 00:43:00 132 mm[Hg] Univer sity of pressure [place] [facility] Diastolic blood 2022-01-13 00:43:00 88 mm[Hg] Unive rsity of pressure [place] [facility] Heart rate 2022-01-13 00:43:00 107 /min [facility] [place] [facility] Body temperature 2022-01-13 00:43:00 36.33 Abi [facility] [place] [facility] Respiratory rate 2022-01-13 00:43:00 18 /min [facility] [place] [facility] Oxygen saturation in 2022-01-13 00:43:00 95 /min [facility] Ar[facility] blood by [place] [facility] Body height 2022-01-10 11:31:00 149.9 cm [facility] [place] [facility] Body weight 2022-01-10 11:31:00 127.007 kg [facility] [place] [facility] BMI 2022-01-10 11:31:00 56.55 kg/m2 [facility] [place] [facility] Body temperature 2022-01-06 16:10:00 36.22 Abi Univ ers[facility] [place] [facility] Respiratory rate 2022-01-06 16:10:00 16 /min [facility] [place] [facility] Oxygen saturation in 2022-01-06 16:10:00 96 /min [facility] Arterial blood by [facility] Pulse oximetry Branch Systolic blood 2022-01-06 16:10:00 127 mm[Hg] Univer sity of pressure [place] [facility] Diastolic blood 2022-01-06 16:10:00 84 mm[Hg] Unive rsity of pressure [place] [facility] Heart rate 2022-01-06 16:10:00 98 /min [facility] [place] [facility] Body weight 2022-01-06 08:54:00 133.494 kg [facility] [place] [facility] BMI 2022-01-06 08:54:00 50.52 kg/m2 [facility] [place] [facility] Body height 2022-01-05 03:01:00 162.6 cm [facility] [place] [facility] Systolic blood 2021-12-22 17:03:00 132 mm[Hg] Univer sity of pressure [place] [facility] Diastolic blood 2021-12-22 17:03:00 90 mm[Hg] Unive rsity of pressure [place] [facility] Heart rate 2021-12-22 17:03:00 78 /min [facility] [place] [facility] Body temperature 2021-12-22 17:03:00 35.83 Abi [facility] [place] [facility] Respiratory rate 2021-12-22 17:03:00 14 /min [facility] [place] [facility] Oxygen saturation in 2021-12-22 17:03:00 93 /min [facility] Arterial blood by [place] [facility] Body weight 2021-12-22 09:00:00 140.933 kg [facility] [place] [facility] BMI 2021-12-22 09:00:00 62.75 kg/m2 [facility] [place] [facility] Body height 2021-12-21 12:47:00 149.9 cm [facility] [place] [facility] Systolic blood 2021-12-18 20:40:00 125 mm[Hg] Univer sity of pressure [place] [facility] Diastolic blood 2021-12-18 20:40:00 75 mm[Hg] Unive rsity of pressure [place] [facility] Heart rate 2021-12-18 20:40:00 99 /min [facility] [place] [facility] Body temperature 2021-12-18 20:40:00 36.67 Abi [facility] [place] [facility] Respiratory rate 2021-12-18 20:40:00 20 /min [facility] [place] [facility] Oxygen saturation in 2021-12-18 20:40:00 93 /min [facility] blood by [place] [facility] Body weight 2021-12-16 22:13:00 137.485 kg [facility] [place] [facility] BMI 2021-12-16 22:13:00 61.22 kg/m2 [facility] [place] [facility] Body height 2021-12-15 09:10:00 149.9 cm [facility] [place] [facility] Systolic blood 2021-11-28 15:49:00 111 mm[Hg] Univer sity of pressure [place] [facility] Diastolic blood 2021-11-28 15:49:00 76 mm[Hg] Unive rsity of pressure [place] [facility] Heart rate 2021-11-28 15:49:00 109 /min [facility] [place] [facility] Body temperature 2021-11-28 15:49:00 36.06 Abi [facility] [place] [facility] Respiratory rate 2021-11-28 15:49:00 18 /min [facility] [place] [facility] Oxygen saturation in 2021-11-28 15:49:00 92 /min [facility] Arterial blood by [employer] [facility] Pulse oxim[facility] Body weight 2021-11-27 10:47:00 139.481 kg [facility] [place] [facility] BMI 2021-11-27 10:47:00 62.11 kg/m2 [facility] [place] [facility] Body height 2021-11-22 06:57:00 149.9 cm [facility] [place] [facility] Systolic blood 2021-10-16 06:00:00 144 mm[Hg] Univer sity of pressure [place] [facility] Diastolic blood 2021-10-16 06:00:00 93 mm[Hg] Unive rsity of pressure [place] [facility] Heart rate 2021-10-16 06:00:00 92 /min [facility] [place] [facility] Respiratory rate 2021-10-16 06:00:00 22 /min [facility] [place] [facility] Oxygen saturation in 2021-10-16 04:00:00 94 /min [facility] Arterial blood by [facility] Pulse oximetry Branch Body temperature 2021-10-16 03:45:00 37.06 Abi [facility] [place] [facility] Body height 2021-10-16 03:45:00 149.9 cm [facility] [place] [facility] Body weight 2021-10-16 03:45:00 127.461 kg [facility] [place] [facility] BMI 2021-10-16 03:45:00 56.76 kg/m2 [facility] [place] [facility] Systolic blood 2021-09-29 03:18:00 113 mm[Hg] Univer sity of pressure [place] [facility] Diastolic blood 2021-09-29 03:18:00 85 mm[Hg] Unive rsity of pressure [place] [facility] Heart rate 2021-09-29 03:18:00 96 /min [facility] [place] [facility] Respiratory rate 2021-09-29 03:18:00 18 /min [facility] [place] [facility] Oxygen saturation in 2021-09-29 03:18:00 93 /min [facility]ial blood by [facility] Pulse oximetry [facility] Body temperature 2021-09-29 01:01:16 36.89 Abi [facility] [place] [facility] Body weight 2021-09-28 23:13:00 127.461 kg [facility] [place] [facility] BMI 2021-09-28 23:13:00 56.76 kg/m2 [facility] [place] [facility] Systolic blood 2021-08-08 21:53:00 142 mm[Hg] Univer sity of pressure [place] [facility] Diastolic blood 2021-08-08 21:53:00 88 mm[Hg] Unive rsity of pressure [place] [facility] Heart rate 2021-08-08 21:53:00 96 /min [facility] [place] [facility] Body temperature 2021-08-08 21:53:00 36.06 Abi [facility] [place] [facility] Respiratory rate 2021-08-08 21:53:00 18 /min [facility] [place] [facility] Oxygen saturation in 2021-08-08 21:53:00 96 /min [facility] blood by [place] [facility] Body weight 2021-08-08 09:48:00 138.801 kg [facility] [place] [facility] BMI 2021-08-08 09:48:00 61.80 kg/m2 [facility] [place] [facility] Body height 2021-08-03 10:27:00 149.9 cm [facility] [place] [facility] Systolic blood 2021-08-01 03:50:00 142 mm[Hg] Univer sity of pressure [place] [facility] Diastolic blood 2021-08-01 03:50:00 95 mm[Hg] Unive rsity of pressure [place] [facility] Heart rate 2021-08-01 03:50:00 93 /min [facility] [place] [facility] Respiratory rate 2021-08-01 03:50:00 17 /min [facility] [place] [facility] Oxygen saturation in 2021-08-01 03:50:00 98 /min [facility] Ar[facility]ial blood by [facility] Pulse oxim[facility] Body temperature 2021-07-31 20:39:00 36.5 Abi [facility] [place] [facility] Body weight 2021-07-31 20:39:00 136.079 kg [facility] [place] [facility] BMI 2021-07-31 20:39:00 60.59 kg/m2 [facility] [place] [facility] Systolic blood 2021-07-30 01:46:00 134 mm[Hg] Univer sity of pressure [place] [facility] Diastolic blood 2021-07-30 01:46:00 100 mm[Hg] Unive rsity of pressure [place] [facility] Heart rate 2021-07-30 01:46:00 102 /min [facility] [place] [facility] Respiratory rate 2021-07-30 01:46:00 22 /min [facility] [place] [facility] Oxygen saturation in 2021-07-30 01:46:00 96 /min [facility] blood by [place] [facility] Body temperature 2021-07-29 20:52:00 36.67 Abi [facility] [place] [facility] Body weight 2021-07-29 20:52:00 136.079 kg [facility] [place] [facility] BMI 2021-07-29 20:52:00 60.59 kg/m2 [facility] [place] [facility] Systolic blood 2021-06-07 23:30:00 175 mm[Hg] Univer sity of pressure [place] [facility] Diastolic blood 2021-06-07 23:30:00 107 mm[Hg] Unive rsity of pressure [place] [facility] Heart rate 2021-06-07 23:30:00 81 /min [facility] [place] [facility] Respiratory rate 2021-06-07 23:30:00 21 /min [facility] [place] [facility] Oxygen saturation in 2021-06-07 23:30:00 97 /min [facility]ial blood by [facility] Pulse oximetry Branch Body weight 2021-06-07 21:55:00 136.079 kg [facility] [place] [facility] BMI 2021-06-07 21:55:00 60.59 kg/m2 [facility] [place] [facility] Body temperature 2021-06-07 21:55:00 37.44 Abi [facility] [place] [facility] Systolic blood 2020-11-21 01:30:00 163 mm[Hg] Univer sity of pressure [place] [facility] Diastolic blood 2020-11-21 01:30:00 106 mm[Hg] Unive rsity of pressure [place] [facility] Heart rate 2020-11-21 01:30:00 97 /min [facility] [place] [facility] Respiratory rate 2020-11-21 01:30:00 21 /min [facility] [place] [facility] Oxygen saturation in 2020-11-21 01:30:00 97 /min [facility] blood by [facility] Pulse oxim[facility] Branch Body temperature 2020-11-20 23:27:00 36.83 Abi [facility] [place] [facility] Body height 2020-11-20 23:27:00 149.9 cm [facility] [place] [facility] Body weight 2020-11-20 23:27:00 136.079 kg [facility] [place] [facility] BMI 2020-11-20 23:27:00 60.59 kg/m2 [facility] [place] [facility] Systolic blood 2020-11-21 01:30:00 163 mm[Hg] Univer sity of pressure [place] [facility] Diastolic blood 2020-11-21 01:30:00 106 mm[Hg] Unive rsity of pressure [place] [facility] Heart rate 2020-11-21 01:30:00 97 /min [facility] [place] [facility] Respiratory rate 2020-11-21 01:30:00 21 /min [facility] [place] [facility] Oxygen saturation in 2020-11-21 01:30:00 97 /min [facility] blood by [place] [facility] Body temperature 2020-11-20 23:27:00 36.83 Abi [facility] [place] [facility] Body height 2020-11-20 23:27:00 149.9 cm [facility] [place] [facility] [place] Body weight 2020-11-20 23:27:00 136.079 kg [facility] [place] [facility] BMI 2020-11-20 23:27:00 60.59 kg/m2 [facility] [place] [facility] Systolic blood 2022-02-19 16:49:00 127 mm[Hg] Univer sity of pressure [place] [facility] Diastolic blood 2022-02-19 16:49:00 86 mm[Hg] Unive rsity of pressure [place] [facility] Heart rate 2022-02-19 16:49:00 101 /min [facility] [place] [facility] [place] Body temperature 2022-02-19 16:49:00 36.83 Abi [facility] [place] [facility] Respiratory rate 2022-02-19 16:49:00 20 /min [facility] [place] [facility] Oxygen saturation in 2022-02-19 16:49:00 95 /min [facility] blood by [place] [facility] Body height 2022-02-15 10:00:00 149.9 cm [facility] [place] [facility] Body weight 2022-02-15 10:00:00 123 kg [facility] [place] [facility] BMI 2022-02-15 10:00:00 54.77 kg/m2 [facility] [place] [facility] Temperature Oral (F) 2021-10-25 21:12:00 98.0 F [facility] Heart Rate 2021-10-25 21:12:00 Love Gomez Respitory Rate 2021-10-25 21:12:00 Gerri Malcolm Systolic (mm Hg) 2021-10-25 21:12:00 Erwin rial [facility] Diastolic (mm Hg) 2021-10-25 21:12:00 [facility] [place] Heart Rate 2021-10-25 17:09:26 [facility] Respitory Rate 2021-10-25 17:09:26 Memori al [facility] Temperature Oral (F) 2021-10-25 17:09:08 98.2 F [facility] Systolic (mm Hg) 2021-10-25 17:08:50 [facility] [place] Diastolic (mm Hg) 2021-10-25 17:08:50 Mem orial [facility] Heart Rate 2021-10-25 17:08:50 [facility] Respitory Rate 2021-10-25 13:07:22 [facility] [place] Temperature Oral (F) 2021-10-25 13:07:04 97.7 F [facility] Systolic (mm Hg) 2021-10-25 13:06:57 [facility] [place] Diastolic (mm Hg) 2021-10-25 13:06:57 Mem [facility] Heart Rate 2021-10-23 10:00:21 [facility] Respitory Rate 2021-10-23 10:00:21 [facility] [place] Temperature Oral (F) 2021-10-23 09:59:28 97.5 F [facility] Systolic (mm Hg) 2021-10-23 09:58:18 Erwin rial [facility] Diastolic (mm Hg) 2021-10-23 09:58:18 [facility] [place] Heart Rate 2021-10-23 09:58:18 [facility] Heart Rate 2021-10-23 04:58:41 [facility] Respitory Rate 2021-10-23 04:58:41 Mem[facility] Temperature Oral (F) 2021-10-23 04:58:34 97.2 F [facility] Systolic (mm Hg) 2021-10-23 04:57:48 [facility] [place] Diastolic (mm Hg) 2021-10-23 04:57:48 Mem orial [facility] Respitory Rate 2021-10-23 00:54:28 Memori [facility] Systolic (mm Hg) 2021-10-23 00:54:19 [facility] [place] Diastolic (mm Hg) 2021-10-23 00:54:19 [facility] [place] Temperature Oral (F) 2021-10-23 00:53:24 98.1 F [facility] Height 2021-10-20 23:39:00 149.86 cm [facility] Weight 2021-10-20 23:39:00 [facility] BMI Calculated 2021-10-20 23:39:00 [facility] [place] Systolic (mm Hg) 2021-10-10 14:00:00 Erwin [facility] [place] Diastolic (mm Hg) 2021-10-10 14:00:00 Mem orial [facility] Respitory Rate 2021-10-10 14:00:00 Memori al [facility] Respitory Rate 2021-10-10 13:00:00 [facility] [place] Systolic (mm Hg) 2021-10-10 13:00:00 Erwin [facility] [place] Diastolic (mm Hg) 2021-10-10 13:00:00 Mem orial [facility] Respitory Rate 2021-10-10 12:00:00 [facility] [place] Systolic (mm Hg) 2021-10-10 12:00:00 [facility]win [facility] [place] Diastolic (mm Hg) 2021-10-10 12:00:00 [facility] [place] Respitory Rate 2021-10-09 05:00:00 Memori [facility] Systolic (mm Hg) 2021-10-09 05:00:00 [facility]win [facility] [place] Diastolic (mm Hg) 2021-10-09 05:00:00 Mem orial [facility] Respitory Rate 2021-10-09 04:00:00 [facility] [place] Systolic (mm Hg) 2021-10-09 04:00:00 Erwin rial [facility] Diastolic (mm Hg) 2021-10-09 04:00:00 [facility] [place] Respitory Rate 2021-10-09 03:00:00 [facility] [place] Systolic (mm Hg) 2021-10-09 03:00:00 [facility] [place] Diastolic (mm Hg) 2021-10-09 03:00:00 Mem orial [facility] Heart Rate 2021-10-06 15:55:41 [facility] [place] Temperature Oral (F) 2021-10-06 15:55:32 98.3 F [facility] Heart Rate 2021-10-06 15:54:37 [facility] Heart Rate 2021-10-06 12:20:12 [facility] Temperature Oral (F) 2021-10-06 12:19:51 97.7 F [facility] Temperature Oral (F) 2021-10-06 09:20:54 97.9 F [facility] Height 2021-10-06 06:18:00 149.86 cm [facility] Weight 2021-10-06 06:18:00 [facility] BMI Calculated 2021-10-06 06:18:00 [facility] [place] Respitory Rate 2018-05-22 17:30:00 [facility] [place] Systolic (mm Hg) 2018-05-22 17:30:00 Erwin rial [facility] Diastolic (mm Hg) 2018-05-22 17:30:00 [facility] [place] Temperature Oral (F) 2018-05-22 17:30:00 98.4 F [facility] Temperature Oral (F) 2018-05-22 16:23:00 98.6 F [facility] Systolic (mm Hg) 2018-05-22 16:23:00 Erwin rial [facility] Diastolic (mm Hg) 2018-05-22 16:23:00 [facility] [place] Respitory Rate 2018-05-22 14:00:00 Memori [facility] Systolic (mm Hg) 2018-05-22 14:00:00 [facility] [place] Diastolic (mm Hg) 2018-05-22 14:00:00 [facility] [place] Respitory Rate 2018-05-22 13:30:00 Memori [facility] BMI Calculated 2018-05-22 10:16:00 [facility] [place] Height 2018-05-22 10:16:00 149.86 cm [facility] Weight 2018-05-22 10:16:00 [facility] Heart Rate 2018-05-22 10:16:00 [facility] Temperature Oral (F) 2018-05-22 10:16:00 97.9 F [facility] Temperature Oral (F) 2017-11-19 13:40:00 97.2 F [facility] Systolic (mm Hg) 2017-11-19 13:40:00 Erwin rial Jason Diastolic (mm Hg) 2017-11-19 13:40:00 Mem o[facility] Heart Rate 2017-11-19 13:40:00 [facility] Respitory Rate 2017-11-19 13:40:00 [facility] Rate 2017-11-19 05:24:00 [facility] Systolic (mm Hg) 2017-11-19 05:24:00 Erwin rial Jason Diastolic (mm Hg) 2017-11-19 05:24:00 Mem orial [facility] Respitory Rate 2017-11-19 05:24:00 [facility] Temperature Oral (F) 2017-11-19 05:24:00 98.1 F [facility] Respitory Rate 2017-11-19 01:15:00 [facility] Systolic (mm Hg) 2017-11-19 01:15:00 Erwin rial Jason Diastolic (mm Hg) 2017-11-19 01:15:00 Mem orial [facility] Heart Rate 2017-11-19 01:15:00 [facility] Temperature Oral (F) 2017-11-19 01:15:00 98.1 F [facility] Weight 2017-11-18 14:00:00 [facility] Weight 2017-11-17 14:00:00 [facility] Weight 2017-11-15 14:00:00 [facility] BMI Calculated 2017-11-15 05:43:00 [facility] Height 2017-11-15 05:43:00 162.56 cm [facility] Height 2017-11-14 22:41:00 149.86 cm [facility] BMI Calculated 2017-11-14 22:41:00 [facility] Procedures Procedure Date / Time Performing Clinician Source Performed POCT GLUCOSE (AUTOMATED) 2022-05-21 22:58:00 Negar Guardado [facility] POCT GLUCOSE (AUTOMATED) 2022-05-21 18:00:00 Negar Guardado [facility] POCT GLUCOSE (AUTOMATED) 2022-05-21 13:46:00 Negar Guardado [facility] BASIC METABOLIC PANEL 2022-05-21 10:49:00 [facility] ([facility], K, CL, CO2, GLUCOSE, Medica l Branch BUN, CREATININE, CA) CBC WITH DIFF 2022-05-21 10:49:00 [place], [facility] LACTIC ACID WHOLE BLOOD 2022-05-21 02:31:00 Kendall Connolly [facility] MRSA / MSSA SCREEN BY 2022-05-21 02:31:00 Negar Guardado [facility] PCR, [facility] POCT GLUCOSE (AUTOMATED) 2022-05-21 02:09:00 Negar Guardado [facility] BLOOD CULTURE SCREEN 2022-05-21 00:35:00 Lynette Fonseca [facility] URINALYSIS 2022-05-20 23:26:00 Lynette Fonseca [facility] BLOOD CULTURE SCREEN 2022-05-20 23:15:00 Lynette Fonseca [facility] COMP. METABOLIC PANEL 2022-05-20 23:08:00 Lynette Fonseca [facility] ([id number]) [facility] CBC WITH DIFF 2022-05-20 23:08:00 Lynette Fonseca [facility] LACTIC ACID WHOLE BLOOD 2022-05-20 23:07:00 Lynette Fonseca [facility] CT ABDOMEN PELVIS W 2022-05-13 02:06:00 Carmelita Serna [facility] LIPASE 2022-05-13 00:59:00 Carmelita Serna [facility] COMP. METABOLIC PANEL 2022-05-13 00:59:00 Carmelita Serna [facility] ([id number]) [facility] CBC WITH DIFF 2022-05-13 00:59:00 Carmelita Serna [facility] URINALYSIS 2022-05-13 00:49:00 Carmelita Serna [facility] POCT GLUCOSE (AUTOMATED) 2022-05-06 13:14:00 Kaylee Argueta [facility] POCT GLUCOSE (AUTOMATED) 2022-05-06 01:14:00 Kaylee Argueta [facility] POCT GLUCOSE (AUTOMATED) 2022-05-05 21:19:00 Kaylee Argueta [facility] BASIC METABOLIC PANEL 2022-05-05 11:23:00 Kosta [facility] (NA, K, CL, CO2, GLUCOSE, Medica l Branch BUN, CREATININE, CA) CBC WITH DIFF 2022-05-05 [facility] 2022-05-05 01:13:00 Negar Guardado [facility] PCR, [facility] POCT GLUCOSE (AUTOMATED) 2022-05-05 01:11:00 Kosta [facility] POCT GLUCOSE (AUTOMATED) 2022-05-04 [facility] 2022-05-04 16:17:00 Kosta [facility] POCT GLUCOSE (AUTOMATED) 2022-05-04 16:08:00 Kosta [facility] POCT GLUCOSE (AUTOMATED) 2022-05-04 12:43:00 Kosta [facility] ASPIRATE OR ABSCESS 2022-05-04 07:35:00 Opal [facility] CULTURE(AEROBIC/ANAEROBIC Medica l Branch ) URINALYSIS 2022-05-04 07:32:00 Opal [facility] ABDOMEN PELVIS W 2022-05-04 07:25:15 Opal [facility] CONTRAST [facility] BLOOD CULTURE SCREEN 2022-05-04 06:01:00 [facility] 2022-05-04 06:01:00 Opal [facility] COMP. METABOLIC PANEL 2022-05-04 06:01:00 [id number] CBC WITH DIFF 2022-05-04 06:01[facility]00 [facility]) 2022-02-23 18:34:00 Victorino Conroy [facility] POCT GLUCOSE (AUTOMATED) 2022-02-23 14:37:00 Victorino Conroy [facility] BASIC METABOLIC PANEL 2022-02-23 13:22:00 Concetta Jackson [facility] (NA, K, CL, CO2, GLUCOSE, Medica l Branch BUN, CREATININE, CA) CBC WITH DIFF 2022-02-23 13:22:00 David Wynn [facility] POCT GLUCOSE (AUTOMATED) 2022-02-23 10:56:00 Victorino Conroy [facility] POCT GLUCOSE (AUTOMATED) 2022-02-23 05:46:00 Victorino Conroy [facility] POCT GLUCOSE (AUTOMATED) 2022-02-23 02:17:00 Victorino Conroy [facility] POCT GLUCOSE (AUTOMATED) 2022-02-22 23:13:00 Victorino Conroy [facility] POCT GLUCOSE (AUTOMATED) 2022-02-22 18:22:00 Victorino Conroy [facility] POCT GLUCOSE (AUTOMATED) 2022-02-22 14:56:00 Victorino Conroy [facility] BASIC METABOLIC PANEL 2022-02-22 10:03:00 David Wynn [facility] (NA, K, CL, CO2, GLUCOSE, Medica l Branch BUN, CREATININE, CA) CBC WITH DIFF 2022-02-22 10:03:00 David Wynn [facility] POCT GLUCOSE (AUTOMATED) 2022-02-22 02:18:00 Victorino Conroy U [facility] POCT GLUCOSE (AUTOMATED) 2022-02-21 22:26:00 Victorino Conroy [facility] POCT GLUCOSE (AUTOMATED) 2022-02-21 18:57:00 Victorino Conroy U [facility] POCT GLUCOSE (AUTOMATED) 2022-02-21 18:57:00 Victorino Conroy U [facility] US DUPLEX VENOUS ARMS 2022-02-21 17:28:45 David Wynn [facility] BILATERAL - BY VASCULAR Medical Branch LAB US DUPLEX VENOUS ARMS 2022-02-21 17:28:45 David Wynn [facility] BILATERAL - BY VASCULAR Medical Branch LAB POCT GLUCOSE (AUTOMATED) 2022-02-21 15:20:00 Victorino Conroy [facility] POCT GLUCOSE (AUTOMATED) 2022-02-21 15:20:00 Victorino Conroy [facility] MAGNESIUM 2022-02-21 10:19:00 Ayo [facility] BASIC METABOLIC PANEL 2022-02-21 10:19:00 Ayo [facility] (NA, K, CL, CO2, GLUCOSE, [place] [facility] BUN, CREATININE, CA) CBC WITH DIFF 2022-02-21 10:19:00 Ayo [facility] MAGNESIUM 2022-02-21 10:19:00 Ayo [facility] BASIC METABOLIC PANEL 2022-02-21 10:19:00 Ayo [facility] (NA, K, CL, CO2, GLUCOSE, [place] [facility] BUN, CREATININE, CA) CBC WITH DIFF 2022-02-21 10:19:00 Ayo [facility] POCT GLUCOSE (AUTOMATED) 2022-02-21 02:44:00 Victorino Conroy [facility] POCT GLUCOSE (AUTOMATED) 2022-02-21 02:44:00 Victorino Conroy [facility] POCT GLUCOSE (AUTOMATED) 2022-02-20 22:02:00 Victorino Conroy [facility] POCT GLUCOSE (AUTOMATED) 2022-02-20 22:02:00 Victorion Conroy [facility] FUNGUS (ROUTINE) CULTURE 2022-02-20 17:03:00 Chalino Paul [facility] TISSUE 2022-02-20 17:03:00 Sarah Beth Paul [facility] CULTURE(AEROBIC/ANAEROBIC A Medica l Branch ) FUNGUS (ROUTINE) CULTURE 2022-02-20 17:03:00 Chalino Paul [facility] TISSUE 2022-02-20 17:03:00 Sarah Beth Paul [facility] CULTURE(AEROBIC/ANAEROBIC A Medica l Branch ) FUNGUS (ROUTINE) CULTURE 2022-02-20 17:00:00 Chalino Paul [facility] TISSUE 2022-02-20 17:00:00 Sarah Beth Paul [facility] CULTURE(AEROBIC/ANAEROBIC A Medica l Branch ) FUNGUS (ROUTINE) CULTURE 2022-02-20 17:00:00 Chalino Paul [facility] TISSUE 2022-02-20 17:00:00 Sarah Beth Paul [facility] CULTURE(AEROBIC/ANAEROBIC A Medica l Branch ) FUNGUS (ROUTINE) CULTURE 2022-02-20 16:59:00 Chalino Paul [facility] TISSUE 2022-02-20 16:59:00 Sarah Beth Paul [facility] CULTURE(AEROBIC/ANAEROBIC A Medica l Branch ) FUNGUS (ROUTINE) CULTURE 2022-02-20 16:59:00 Chalino Paul [facility] TISSUE 2022-02-20 16:59:00 Sarah Beth Paul [facility] CULTURE(AEROBIC/ANAEROBIC A Medica l Branch ) FOOT DEBRIDEMENT 2022-02-20 16:11:00 Sarah Beth Paul [facility] FOOT DEBRIDEMENT 2022-02-20 16:11:00 Sarah Beth Paul [facility] COVID-19 (ID NOW RAPID 2022-02-20 14:36:00 David Wynn [facility] TESTING) Medical Branch LAB ONLY COVID 2022-02-20 14:36:00 Kingsley [facility] COVID-19 (ID NOW RAPID 2022-02-20 14:36:00 David Wynn [facility] TESTING) Medical Branch LAB ONLY COVID 2022-02-20 14:36:00 Kingsley [facility] POCT GLUCOSE (AUTOMATED) 2022-02-20 14:07:00 [facility] 2022-02-20 14:07:00 Bret Martinez Uni [facility] HB ECG ROUTINE & RHYTHM 2022-02-20 13:27:17 Concetta Jackson [facility] STRIP [facility] CBC WITH DIFF 2022-02-20 10:55:00 Ayo [facility] CBC WITH DIFF 2022-02-20 10:55:00 Ayo [facility] MAGNESIUM 2022-02-20 10:40:00 Ayo [facility] BASIC METABOLIC PANEL 2022-02-20 10:40:00 Negar Rollins [facility] (NA, K, CL, CO2, GLUCOSE, [place] [facility] BUN, CREATININE, CA) COVID-19 (ID NOW RAPID 2022-02-20 10:40:00 Rafal [facility] TESTING) Medical Branch LAB ONLY COVID 2022-02-20 10:40:00 Rafal [facility] INTERPRETATION Medical Branch MAGNESIUM 2022-02-20 10:40:00 Ayo [facility] BASIC METABOLIC PANEL 2022-02-20 10:40:00 Negar Rollins [facility] (NA, K, CL, CO2, GLUCOSE, [place] [facility] BUN, CREATININE, CA) COVID-19 (ID NOW RAPID 2022-02-20 10:40:00 Rafal [facility] TESTING) Medical Branch LAB ONLY COVID 2022-02-20 10:40:00 Rafal [facility] POCT GLUCOSE (AUTOMATED) 2022-02-20 02:29:00 [facility] POCT GLUCOSE (AUTOMATED) 2022-02-20 02:29:00 [facility] POCT GLUCOSE (AUTOMATED) 2022-02-19 23:39:00 Bret Martinez Uni vers[facility] POCT GLUCOSE (AUTOMATED) 2022-02-19 23:39:00 [facility]) 2022-02-19 17:10:00 Bret Martinez [facility] POCT GLUCOSE (AUTOMATED) 2022-02-19 17:10:00 Bret Martinez [facility] POCT GLUCOSE (AUTOMATED) 2022-02-19 17:10:00 [facility] POCT GLUCOSE (AUTOMATED) 2022-02-19 15:54:00 Bret Martinez [facility] POCT GLUCOSE (AUTOMATED) 2022-02-19 15:54:00 Bret Martinez [facility] POCT GLUCOSE (AUTOMATED) 2022-02-19 15:54:00 [facility] 2022-02-19 08:36:00 Vicky [facility] BASIC METABOLIC PANEL 2022-02-19 08:36:00 Jose A [facility] (NA, K, CL, CO2, GLUCOSE, Medica l Branch BUN, CREATININE, CA) CBC WITH DIFF 2022-02-19 08:36:00 Jose A [facility] MAGNESIUM 2022-02-19 08:36:00 Jose A [facility] MAGNESIUM 2022-02-19 08:36:00 Jose A [facility] BASIC METABOLIC PANEL 2022-02-19 08:36:00 [facility] (NA, K, CL, CO2, GLUCOSE, Medica l Branch BUN, CREATININE, CA) SEDIMENTATION RATE 2022-02-19 08:36:00 Vicky [facility] CBC WITH DIFF 2022-02-19 08:36:00 Jose A [facility] MAGNESIUM 2022-02-19 08:36:00 Jose A [facility] BASIC METABOLIC PANEL 2022-02-19 08:36:00 [facility] (NA, K, CL, CO2, GLUCOSE, Medica l Branch BUN, CREATININE, CA) SEDIMENTATION RATE 2022-02-19 08:36:00 Vicky [facility] CBC WITH DIFF 2022-02-19 08:36:00 Nia Naranjo [place] [facility] POCT GLUCOSE (AUTOMATED) 2022-02-19 00:57:00 Vic Mcdonald [facility] POCT GLUCOSE (AUTOMATED) 2022-02-19 00:57:00 Vic Mcdonald [facility] POCT GLUCOSE (AUTOMATED) 2022-02-19 00:57:00 Vic Mcdonald B Un [facility] POCT GLUCOSE (AUTOMATED) 2022-02-18 21:26:00 Vic Mcdonald [facility] POCT GLUCOSE (AUTOMATED) 2022-02-18 21:26:00 Vic Mcdonald B [facility] POCT GLUCOSE (AUTOMATED) 2022-02-18 21:26:00 Vic Mcdonald [facility] POCT GLUCOSE (AUTOMATED) 2022-02-18 16:47:00 Vic Mcdonald B [facility] POCT GLUCOSE (AUTOMATED) 2022-02-18 16:47:00 Vic Mcdonald B [facility] POCT GLUCOSE (AUTOMATED) 2022-02-18 16:47:00 Vic Mcdonald B Un [facility] BASIC METABOLIC PANEL 2022-02-18 14:21:00 Nai Naranjo [facility] (NA, K, CL, CO2, GLUCOSE, Medica l Branch BUN, CREATININE, CA) C-REACTIVE PROTEIN 2022-02-18 14:21:00 Vicky [facility] C-REACTIVE PROTEIN 2022-02-18 14:21:00 Vicky [facility] BASIC METABOLIC PANEL 2022-02-18 14:21:00 Jose A [facility] (NA, K, CL, CO2, GLUCOSE, Medica l Branch BUN, CREATININE, CA) C-REACTIVE PROTEIN 2022-02-18 14:21:00 Indira [facility] BASIC METABOLIC PANEL 2022-02-18 14:21:00 Nai Naranjo [facility] (NA, K, CL, CO2, GLUCOSE, Medica l Branch BUN, CREATININE, CA) POCT GLUCOSE (AUTOMATED) 2022-02-18 12:34:00 Vic Mcdonald [facility] POCT GLUCOSE (AUTOMATED) 2022-02-18 12:34:00 Vic Mcdonald B [facility] POCT GLUCOSE (AUTOMATED) 2022-02-18 12:34:00 Vic Mcdonald B [facility] POCT GLUCOSE (AUTOMATED) 2022-02-18 01:28:00 Vic Mcdonald B [facility] POCT GLUCOSE (AUTOMATED) 2022-02-18 01:28:00 Vic Mcdonald [facility] POCT GLUCOSE (AUTOMATED) 2022-02-18 01:28:00 Vic Mcdonald [facility] POCT GLUCOSE (AUTOMATED) 2022-02-17 21:13:00 Vic Mcdonald [facility] POCT GLUCOSE (AUTOMATED) 2022-02-17 21:13:00 Fiorella Mcdonaldy B [facility] POCT GLUCOSE (AUTOMATED) 2022-02-17 21:13:00 Vic Mcdonald [facility] POCT GLUCOSE (AUTOMATED) 2022-02-17 16:39:00 [place] Vic B [facility] POCT GLUCOSE (AUTOMATED) 2022-02-17 16:39:00 Harry Vic B [facility] POCT GLUCOSE (AUTOMATED) 2022-02-17 16:39:00 [place], Vic B [facility] POCT GLUCOSE (AUTOMATED) 2022-02-17 13:11:00 Fiorella Mcdonaldy B [facility] POCT GLUCOSE (AUTOMATED) 2022-02-17 13:11:00 Vic Mcdonald [facility] POCT GLUCOSE (AUTOMATED) 2022-02-17 13:11:00 Vic Mcdonald [facility] [place] [facility] MAGNESIUM 2022-02-17 10:28:00 Corbin [facility] BASIC METABOLIC PANEL 2022-02-17 10:28:00 [facility] (NA, K, CL, CO2, GLUCOSE, Medica l Branch BUN, CREATININE, CA) MAGNESIUM 2022-02-17 10:28:00 [facility] BASIC METABOLIC PANEL 2022-02-17 10:28:00 [facility] (NA, K, CL, CO2, GLUCOSE, Medica l Branch BUN, CREATININE, CA) MAGNESIUM 2022-02-17 10:28:00 [place], [facility] BASIC METABOLIC PANEL 2022-02-17 10:28:00 [facility] (NA, K, CL, CO2, GLUCOSE, Medica l Branch BUN, CREATININE, CA) POCT GLUCOSE (AUTOMATED) 2022-02-17 10:01:00 Vic Mcdonald Un [facility] POCT GLUCOSE (AUTOMATED) 2022-02-17 10:01:00 Vic Mcdonald [facility] POCT GLUCOSE (AUTOMATED) 2022-02-17 10:01:00 Vic Mcdonald [facility] POCT GLUCOSE (AUTOMATED) 2022-02-17 06:32:00 Vic Mcdonald [facility] POCT GLUCOSE (AUTOMATED) 2022-02-17 06:32:00 Vic Mcdonald [facility] POCT GLUCOSE (AUTOMATED) 2022-02-17 06:32:00 Vic Mcdonald [facility] BASIC METABOLIC PANEL 2022-02-17 02:01:00 [facility] (NA, K, CL, CO2, GLUCOSE, Medica l Branch BUN, CREATININE, CA) BASIC METABOLIC PANEL 2022-02-17 02:01:00 Lacey Alaniz [facility] (NA, K, CL, CO2, GLUCOSE, Medica l Branch BUN, CREATININE, CA) BASIC METABOLIC PANEL 2022-02-17 02:01:00 Lacey Alaniz [facility] (NA, K, CL, CO2, GLUCOSE, Medica l Branch BUN, CREATININE, CA) POCT GLUCOSE (AUTOMATED) 2022-02-17 01:53:00 Vic Mcdonald [facility] [place] [facility] POCT GLUCOSE (AUTOMATED) 2022-02-17 01:53:00 Vic Mcdonald [facility] POCT GLUCOSE (AUTOMATED) 2022-02-17 01:53:00 Vic Mcdonald [facility] POCT GLUCOSE (AUTOMATED) 2022-02-16 23:02:00 Vic Mcdonald [facility] POCT GLUCOSE (AUTOMATED) 2022-02-16 23:02:00 Vic Mcdonald [facility] POCT GLUCOSE (AUTOMATED) 2022-02-16 23:02:00 Vic Mcdonald [facility] [place] [facility] XR FOOT 3+ VW BILATERAL 2022-02-16 21:35:00 [facility] A Medical Branch XR FOOT 3+ VW BILATERAL 2022-02-16 21:35:00 [facility] A Medical Branch XR FOOT 3+ VW BILATERAL 2022-02-16 21:35:00 [facility] A Medical Branch POCT GLUCOSE (AUTOMATED) 2022-02-16 20:45:00 Vic Mcdonald [facility] POCT GLUCOSE (AUTOMATED) 2022-02-16 20:45:00 Vic Mcdonald [facility] POCT GLUCOSE (AUTOMATED) 2022-02-16 20:45:00 Vic Mcdonald [facility] POCT GLUCOSE (AUTOMATED) 2022-02-16 16:41:00 Vic Mcdonald [facility] POCT GLUCOSE (AUTOMATED) 2022-02-16 16:41:00 Vic Mcdonald Un [facility] POCT GLUCOSE (AUTOMATED) 2022-02-16 16:41:00 Vic Mcdonald Un [facility] BASIC METABOLIC PANEL 2022-02-16 15:35:00 [facility]cd[facility] (NA, K, CL, CO2, GLUCOSE, Medica l Branch BUN, CREATININE, CA) BASIC METABOLIC PANEL 2022-02-16 15:35:00 Vic Mcdonald [facility] (NA, K, CL, CO2, GLUCOSE, Medica l Branch BUN, CREATININE, CA) BASIC METABOLIC PANEL 2022-02-16 15:35:00 [facility] (NA, K, CL, CO2, GLUCOSE, Medica l Branch BUN, CREATININE, CA) BETA HYDROXY-BUTYRATE 2022-02-16 15:34:00 Kiran Rodríguez [facility] BETA HYDROXY-BUTYRATE 2022-02-16 15:34:00 Kiran Rodríguez [facility] BETA HYDROXY-BUTYRATE 2022-02-16 15:34:00 Kiran Rodríguez [facility] POCT GLUCOSE (AUTOMATED) 2022-02-16 14:20:00 Vic Mcdonald [facility] POCT GLUCOSE (AUTOMATED) 2022-02-16 14:20:00 Vic Mcdonald [facility] POCT GLUCOSE (AUTOMATED) 2022-02-16 14:20:00 Vic Mcdonald [facility] POCT GLUCOSE (AUTOMATED) 2022-02-16 12:52:00 Vic Mcdonald [facility] POCT GLUCOSE (AUTOMATED) 2022-02-16 12:52:00 Vic Mcdonald [facility] POCT GLUCOSE (AUTOMATED) 2022-02-16 12:52:00 Vic Mcdonald [facility] POCT GLUCOSE (AUTOMATED) 2022-02-16 09:04:00 Vic Mcdonald [facility] POCT GLUCOSE (AUTOMATED) 2022-02-16 09:04:00 Vic Mcdonald [facility] POCT GLUCOSE (AUTOMATED) 2022-02-16 09:04:00 Vic Mcdonald [facility] BASIC METABOLIC PANEL 2022-02-16 06:13:00 Myrna Chen [facility] (NA, K, CL, CO2, GLUCOSE, Medica l Branch BUN, CREATININE, CA) GLUTAMIC ACID 2022-02-16 06:13:00 April [facility] [place] DECARBOXYLASE AB [facility] CBC WITHOUT DIFF 2022-02-16 06:13:00 [facility]-02-16 06:13:00 [facility]-02-16 06:13:00 [facility] BASIC METABOLIC PANEL 2022-02-16 06:13:00 [facility] ([facility], K, CL, CO2, GLUCOSE, Medica l Branch BUN, CREATININE, CA) CBC WITHOUT DIFF 2022-02-16 06:13:00 [facility] 2022-02-16 06:13:00 [facility] MAGNESIUM 2022-02-16 06:13:00 [facility] BASIC METABOLIC PANEL 2022-02-16 06:13:00 Myrna Chen [facility] (NA, K, CL, CO2, GLUCOSE, Medica l Branch BUN, CREATININE, CA) CBC WITHOUT DIFF 2022-02-16 06:13:00 April [facility] GLUTAMIC ACID 2022-02-16 06:13:00 [facility] POCT GLUCOSE (AUTOMATED) 2022-02-16 05:45:00 Vic Mcdonald [facility] POCT GLUCOSE (AUTOMATED) 2022-02-16 05:45:00 Vic Mcdonald [facility] POCT GLUCOSE (AUTOMATED) 2022-02-16 05:45:00 Vic Mcdonald [facility] POCT GLUCOSE (AUTOMATED) 2022-02-16 01:26:00 Vic Mcdonald [facility] POCT GLUCOSE (AUTOMATED) 2022-02-16 01:26:00 Vic Mcdonald [facility] POCT GLUCOSE (AUTOMATED) 2022-02-16 01:26:00 Vic Mcdonald Un [facility] [place] [facility] POCT GLUCOSE (AUTOMATED) 2022-02-15 23:42:00 Vic Mcdonald Un iversity of [facility] POCT GLUCOSE (AUTOMATED) 2022-02-15 23:42:00 Vic Mcdonald Un iversity of [facility] POCT GLUCOSE (AUTOMATED) 2022-02-15 23:42:00 Vic Mcdonald Un iversity of [facility] BASIC METABOLIC PANEL 2022-02-15 22:51:00 Vic Mcdonald Unive rsity [facility] (NA, K, CL, CO2, GLUCOSE, Medica l Branch BUN, CREATININE, CA) BASIC METABOLIC PANEL 2022-02-15 22:51:00 Vic Mcdonald Unive rsity [facility] (NA, K, CL, CO2, GLUCOSE, Medica l Branch BUN, CREATININE, CA) BASIC METABOLIC PANEL 2022-02-15 22:51:00 [facility], CL, CO2, GLUCOSE, Medica l Branch BUN, CREATININE, CA) POCT GLUCOSE (AUTOMATED) 2022-02-15 22:37:00 Vic Mcdonald Un iversity of [facility] POCT GLUCOSE (AUTOMATED) 2022-02-15 22:37:00 Vic Mcdonald Un [facility] [place] [facility] POCT GLUCOSE (AUTOMATED) 2022-02-15 22:37:00 Vic Mcdonald Un [facility] [place] [facility] POCT GLUCOSE (AUTOMATED) 2022-02-15 21:30:00 Vic Mcdonald Un iversity of [facility] POCT GLUCOSE (AUTOMATED) 2022-02-15 21:30:00 Vic Mcdonald Un iversity of [facility] POCT GLUCOSE (AUTOMATED) 2022-02-15 21:30:00 Vic Mcdonald Un iversity of [facility] POCT GLUCOSE (AUTOMATED) 2022-02-15 20:05:00 Vic Mcdonald Un iversity of [facility] POCT GLUCOSE (AUTOMATED) 2022-02-15 20:05:00 Vic Mcdonald Un iversity of [facility] POCT GLUCOSE (AUTOMATED) 2022-02-15 20:05:00 Vic Mcdonald Un iversity of [facility] HB ECG ROUTINE & RHYTHM 2022-02-15 19:59:13 Lacey Alaniz Jay Uni versity of [facility] HB ECG ROUTINE & RHYTHM 2022-02-15 19:59:13 Lacey Alaniz Jay Uni versity of [facility] HB ECG ROUTINE & RHYTHM 2022-02-15 19:59:13 Corbin Ahrob Jay Uni versity of [facility] POCT GLUCOSE (AUTOMATED) 2022-02-15 19:06:00 Vic Mcdonald Un iversity of [facility] POCT GLUCOSE (AUTOMATED) 2022-02-15 19:06:00 Vic Mcdonald Un iversity of [facility] POCT GLUCOSE (AUTOMATED) 2022-02-15 19:06:00 Vic Mcdonald Un iversity of [facility] BLOOD CULTURE SCREEN 2022-02-15 18:49:00 Nai Naranjo [facility] BLOOD CULTURE SCREEN 2022-02-15 18:49:00 Nai Naranjo [facility] BLOOD CULTURE SCREEN 2022-02-15 18:49:00 Nai Naranjo [facility] BLOOD CULTURE SCREEN 2022-02-15 18:48:00 Nai Naranjo [facility] BLOOD CULTURE SCREEN 2022-02-15 18:48:00 Nai Naranjo [facility] BLOOD CULTURE SCREEN 2022-02-15 18:48:[address] [facility] 1 VW 2022-02-15 18:34:00 Corbin Lacey Jay [facility] XR CHEST 1 VW 2022-02-15 18:34:00 [place] [facility] XR CHEST 1 VW 2022-02-15 18:34:00 Corbin [facility] BASIC METABOLIC PANEL 2022-02-15 17:49:00 Vic Mcdonald Unive rsity of [place] (NA, K, CL, CO2, GLUCOSE, Medica l Branch BUN, CREATININE, CA) TROPONIN I 2022-02-15 17:49:00 Anne [facility] TROPONIN I 2022-02-15 17:49[facility] 2022-02-15 17:49:00 Vic Mcdonald Unive rs[facility] of [place] (NA, K, CL, CO2, GLUCOSE, Medica l Branch BUN, CREATININE, CA) TROPONIN I 2022-02-15 17:49:00 Anne [facility] BASIC METABOLIC PANEL 2022-02-15 17:49:00 Vic Mcdonald Unive rs[facility] of [place] (NA, K, CL, CO2, GLUCOSE, Medica l Branch BUN, CREATININE, CA) POCT GLUCOSE (AUTOMATED) 2022-02-15 17:27:00 Vic Mcdonald Un iversity [facility] POCT GLUCOSE (AUTOMATED) 2022-02-15 17:27:00 Vic Mcdonald B Un iversity of [facility] POCT GLUCOSE (AUTOMATED) 2022-02-15 17:27:00 Vic Mcdonald B Un iversity of [facility] POCT GLUCOSE (AUTOMATED) 2022-02-15 15:53:00 Vic Mcdonald B Un iversity of [facility] POCT GLUCOSE (AUTOMATED) 2022-02-15 15:53:00 Vic Mcdonald B Un iversity of [facility] POCT GLUCOSE (AUTOMATED) 2022-02-15 15:53:00 Vic Mcdonald B Un iversity of [facility] BASIC METABOLIC PANEL 2022-02-15 15:32:00 Vic Mcdonald [facility] (NA, K, CL, CO2, GLUCOSE, Medica l Branch BUN, CREATININE, CA) BASIC METABOLIC PANEL 2022-02-15 15:32:00 Vic Mcdonald [facility] (NA, K, CL, CO2, GLUCOSE, Medica l Branch BUN, CREATININE, CA) BASIC METABOLIC PANEL 2022-02-15 15:32:00 Vic Mcdonald [facility] (NA, K, CL, CO2, GLUCOSE, Medica l Branch BUN, CREATININE, CA) POCT GLUCOSE (AUTOMATED) 2022-02-15 14:56:00 Vic Mcdonald Un iversity of [facility] POCT GLUCOSE (AUTOMATED) 2022-02-15 14:56:00 Vic Mcdonald Un iversity of [facility] POCT GLUCOSE (AUTOMATED) 2022-02-15 14:56:00 Vic Mcdonald Un iversity of [facility] POCT GLUCOSE (AUTOMATED) 2022-02-15 13:48:00 Vic Mcdonald Un iversity of [facility] POCT GLUCOSE (AUTOMATED) 2022-02-15 13:48:00 Vic Mcdonald Un [facility] [place] [facility] [place] POCT GLUCOSE (AUTOMATED) 2022-02-15 13:48:00 Vic Mcdonald Un iversity of [facility] POCT GLUCOSE (AUTOMATED) 2022-02-15 10:42:00 Vic Mcdonald Un iversity of [facility] POCT GLUCOSE (AUTOMATED) 2022-02-15 10:42:00 Vic Mcdonald Un iversity of [facility] POCT GLUCOSE (AUTOMATED) 2022-02-15 10:42:00 Vic Mcdonald Un iversity of [facility] BASIC METABOLIC PANEL 2022-02-15 10:14:00 Nai Naranjo [facility] (NA, K, CL, CO2, GLUCOSE, Medica l Branch BUN, CREATININE, CA) MAGNESIUM 2022-02-15 10:14:00 Naranjo, [facility] MAGNESIUM 2022-02-15 10:14:00 [facility]OL[facility] PANEL 2022-02-15 10:14:00 Naranjo, [facility] (NA, K, CL, CO2, GLUCOSE, Medica l Branch BUN, CREATININE, CA) MAGNESIUM 2022-02-15 10:14:00 [facility] BASIC METABOLIC PANEL 2022-02-15 10:14:00 Naranjo, [facility] (NA, K, CL, CO2, GLUCOSE, Medica l Branch BUN, CREATININE, CA) POCT GLUCOSE (AUTOMATED) 2022-02-15 09:30:00 Vic Mcdonald Un iversity [facility] POCT GLUCOSE (AUTOMATED) 2022-02-15 09:30:00 Vic Mcdonald Un iversity [facility] POCT GLUCOSE (AUTOMATED) 2022-02-15 09:30:00 Vic Mcdonald Un iversity [facility] POCT GLUCOSE (AUTOMATED) 2022-02-15 07:11:00 Vic Mcdonald Un iversity [facility] POCT GLUCOSE (AUTOMATED) 2022-02-15 07:11:00 Vic Mcdonald Un iversity [facility] POCT GLUCOSE (AUTOMATED) 2022-02-15 07:11:00 [facility] SERUM OR 2022-02-15 07:07:00 Vic Mcdonald [facility] BETA HYDROXY-BUTYRATE 2022-02-15 07:07:00 [facility] OSMOLALITY, SERUM OR 2022-02-15 07:07:00 Vic Mcdonald sitlizet [facility] BETA HYDROXY-BUTYRATE 2022-02-15 07:07:00 [facility] OSMOLALITY, SERUM OR 2022-02-15 07:07:00 Vic Mcdonald sit[facility]ly [facility] BETA HYDROXY-BUTYRATE 2022-02-15 07:07:00 Vic Mcdonald Unive rsity [facility] BASIC METABOLIC PANEL 2022-02-15 07:06:00 HarryFiorellay B Unive rsity [facility] (NA, K, CL, CO2, GLUCOSE, Medica l Branch BUN, CREATININE, CA) BASIC METABOLIC PANEL 2022-02-15 07:06:00 Vic Mcdonald B Unive rsity [facility] (NA, K, CL, CO2, GLUCOSE, Medica l Branch BUN, CREATININE, CA) BASIC METABOLIC PANEL 2022-02-15 07:06:00 Vic Mcdonald B Unive rsity [facility] (NA, K, CL, CO2, GLUCOSE, Medica l Branch BUN, CREATININE, CA) CT ABDOMEN PELVIS W 2022-02-15 05:28:46 Vic Mcdonald Univers ity [facility] CONTRAST [facility] CT ABDOMEN PELVIS W 2022-02-15 05:28:46 Vic Mcdonald Univers ity [facility] CONTRAST [facility] CT ABDOMEN PELVIS W 2022-02-15 05:28:46 Vic Mcdonald B Univers ity [facility] CONTRAST [facility] POCT GLUCOSE(AGE >30DAYS) 2022-02-15 05:11:00 [facility]SE(AGE >30DAYS) 2022-02-15 05:11:00 Vic Mcdonald U niversity [facility] POCT GLUCOSE(AGE >30DAYS) 2022-02-15 05:11:00 [facility] PO[facility]SE (AUTOMATED) 2022-02-15 05:08:00 Vic Mcdonald Un iversity [facility] POCT GLUCOSE (AUTOMATED) 2022-02-15 05:08:00 Vic Mcdonald B Un iversity of [facility] POCT GLUCOSE (AUTOMATED) 2022-02-15 05:08:00 Vic Mcdonald Un iversity [facility] BLOOD CULTURE SCREEN 2022-02-15 04:31:00 Vic Mcdonald Univer sity [facility] BLOOD CULTURE WORKUP 2022-02-15 04:31:00 NicholasvilleVic taylor Univer [facility] GRAM POSITIVE BLOOD 2022-02-15 04:31:00 Vic Mcdonald Univers [facility] PATHOGENS DNA [facility] PROBE-AEROBIC BLOOD CULTURE SCREEN 2022-02-15 04:31:[address] [place] [facility] [address] BLOOD CULT[facility] WORKUP 2022-02-15 04:31:00 HarryVic taylor Univer [facility] GRAM POSITIVE BLOOD 2022-02-15 04:31:00 Vic Mcdonald [facility] PATHOGENS DNA [facility] PROBE-AEROBIC BLOOD CULTURE SCREEN 2022-02-15 04:31:00 Vic Mcdonald Univer [facility] BLOOD CULTURE WORKUP 2022-02-15 04:31:00 [facility] 2022-02-15 04:31:00 Vic Mcdonald [facility] PROBE-AEROBIC URINALYSIS 2022-02-15 04:21:00 Vic Mcdonald [facility] URINE CULTURE 2022-02-15 04:21:00 Vic Mcdonald [facility] URINALYSIS 2022-02-15 04:21:00 Vic Mcdonald [facility] URINE CULTURE 2022-02-15 04:21:00 HarryVic taylor [facility] URINALYSIS 2022-02-15 04:21:00 Vic Mcdonald [facility] URINE CULTURE 2022-02-15 04:21:00 Vic Mcdonald [facility] COVID-19 (ID NOW RAPID 2022-02-15 04:20:00 Vic Mcdonald [facility] TESTING) Medical Branch LAB ONLY COVID 2022-02-15 04:20:00 Vic Mcdonald [facility] INTERPRETATION [facility] COVID-19 (ID NOW RAPID 2022-02-15 04:20:00 HarryVic taylor [facility] TESTING) Medical Branch LAB ONLY COVID 2022-02-15 04:20:[address] [facility] COVID-19 (ID NOW RAPID 2022-02-15 04:20:00 Vic Mcdonald [facility] TESTING) Medical Branch LAB ONLY COVID 2022-02-15 04:20:[address] [facility] CBC WITH DIFF 2022-02-15 04:18:00 Vic Mcdonald [facility] PROTHROMBIN TIME / INR 2022-02-15 04:18:00 Vic Mcdonald [facility] BASIC METABOLIC PANEL 2022-02-15 04:18:00 Vic Mcdonald [facility] (NA, K, CL, CO2, GLUCOSE, Medica l Branch BUN, CREATININE, CA) HEPATIC FUNCTION PANEL 2022-02-15 04:18:00 Vic Mcdonald [facility] ([id number]) (ALB,T.PRO,BILI [facility] Branch T,BU/BC,ALT,AST,ALK PHOS) LIPASE 2022-02-15 04:18:00 Vic Mcdonald [facility] ACUTE CARE VENOUS BLOOD 2022-02-15 04:18:00 Vic Mcdonald [facility] GAS [facility] LACTIC ACID WHOLE BLOOD 2022-02-15 04:18:00 Vic Mcdonald [facility] MAGNESIUM 2022-02-15 04:18:00 Vic Mcdonald [facility] PHOSPHORUS 2022-02-15 04:18:00 Vic Mcdonald [facility] GLYCOSYLATED HEMOGLOBIN 2022-02-15 04:18:00 Vic Mcdonald [facility] (A1C) [facility] PHOSPHORUS 2022-02-15 04:18:00 Vic Mcdonald [facility] LIPASE 2022-02-15 04:18:00 Vic Mcdonald [facility] MAGNESIUM 2022-02-15 04:18:00 Vic Mcdonald [facility] HEPATIC FUNCTION PANEL 2022-02-15 04:18:[address] [facility] ([id number]) (ALB,T.PRO[facility] T,BU/BC,ALT,AST,ALK PHOS) BASIC METABOLIC PANEL 2022-02-15 04:18:00 Vic Mcdonald [facility] (NA, K, CL, CO2, GLUCOSE, Medica l Branch BUN, CREATININE, CA) ACUTE CARE VENOUS BLOOD 2022-02-15 04:18:00 Vic Mcdonald Uni [facility] CBC WITH DIFF 2022-02-15 04:18:00 Vic Mcdonald [facility] GLYCOSYLATED HEMOGLOBIN 2022-02-15 04:18:00 Vic Mcdonald [facility] (A1C) [facility] PROTHROMBIN TIME / INR 2022-02-15 04:18:00 Vic Mcdonald [facility] LACTIC ACID WHOLE BLOOD 2022-02-15 04:18:00 Vic Mcdonald Uni [facility] PHOSPHORUS 2022-02-15 04:18:00 Vic Mcdonald [facility] LIPASE 2022-02-15 04:18:00 Vic Mcdonald [facility] MAGNESIUM 2022-02-15 04:18:00 Vic Mcdonald [facility] HEPATIC FUNCTION PANEL 2022-02-15 04:18:00 Vic Mcdonald [facility] ([id number]) (ALB,T.PRO,[facility] Medical Branch T,BU/BC,ALT,AST,ALK PHOS) BASIC METABOLIC PANEL 2022-02-15 04:18:00 Vic Mcdonald [facility] (NA, K, CL, CO2, GLUCOSE, Medica l Branch BUN, CREATININE, CA) ACUTE CARE VENOUS BLOOD 2022-02-15 04:18:00 Vic Mcdonald [facility] CBC WITH DIFF 2022-02-15 04:18:00 Vic Mcdonald [facility] GLYCOSYLATED HEMOGLOBIN 2022-02-15 04:18:00 Vic Mcdonald B [facility] (A1C) [facility] PROTHROMBIN TIME / INR 2022-02-15 04:18:00 Harry Vic B [facility] LACTIC ACID WHOLE BLOOD 2022-02-15 04:18:00 Vic Mcdonald Uni versity of [facility] EMERGENCY DEPARTMENT 2022-02-14 05:01:00 Doctor Unassigned, No [facility] [place] DOCUMENTS [facility] HOSPITAL ADMISSION 2022-02-14 05:01:00 Doctor Unassigned, No Uni versity of [facility] EMERGENCY DEPARTMENT 2022-02-14 05:01:00 Doctor Unassigned, No [facility] [place] DOCUMENTS [facility] HOSPITAL ADMISSION 2022-02-14 05:01:00 Doctor Unassigned, No Uni versity of [facility] EMERGENCY DEPARTMENT 2022-02-14 05:01:00 Doctor Unassigned, No U niversity of [facility] HOSPITAL ADMISSION 2022-02-14 05:01:00 Doctor Unassigned, No Uni versity of [facility] POCT GLUCOSE (AUTOMATED) 2022-02-10 19:34:00 EdionKaylee yun Uni versity of [facility] POCT GLUCOSE (AUTOMATED) 2022-02-10 19:34:00 EdionweKaylee Uni versity of [facility] POCT GLUCOSE (AUTOMATED) 2022-02-10 16:39:00 Edionwe, Farzady Uni versity of [facility] POCT GLUCOSE (AUTOMATED) 2022-02-10 16:39:00 Edionwe, Kaylee Uni versity of [facility] BASIC METABOLIC PANEL 2022-02-10 09:13:00 Cathleen [facility] (NA, K, CL, CO2, GLUCOSE, Medica l Branch BUN, CREATININE, CA) BASIC METABOLIC PANEL 2022-02-10 09:13:00 Cathleen [facility] (NA, K, CL, CO2, GLUCOSE, Medica l Branch BUN, CREATININE, CA) POCT GLUCOSE (AUTOMATED) 2022-02-10 01:45:00 EdionKaylee yun Uni versity of [facility] POCT GLUCOSE (AUTOMATED) 2022-02-10 01:45:00 Edionwe, Mercy Uni versity of [facility] POCT GLUCOSE (AUTOMATED) 2022-02-09 21:36:00 EdionweKaylee Uni [facility] POCT GLUCOSE (AUTOMATED) 2022-02-09 21:36:00 Kosta Farzadlizet Lauren versity [facility] POCT GLUCOSE (AUTOMATED) 2022-02-09 16:45:00 Kosta Kaylee [facility] PO[facility]SE (AUTOMATED) 2022-02-09 16:45:00 Kosta Farzadlizet Lauren [facility] PHOSPHORUS 2022-02-09 13:17:00 Cathleen [facility] MAGNESIUM 2022-02-09 13:17:00 Cathleen [facility] BASIC METABOLIC PANEL 2022-02-09 13:17:00 Cathleen [facility] (NA, K, CL, CO2, GLUCOSE, Medica l Branch BUN, CREATININE, CA) BASIC METABOLIC PANEL 2022-02-09 13:17:00 Cathleen [facility] (NA, K, CL, CO2, GLUCOSE, Medica l Branch BUN, CREATININE, CA) MAGNESIUM 2022-02-09 13:17:00 Cathleen [facility] PHOSPHORUS 2022-02-09 13:17:00 Cathleen [facility] POCT GLUCOSE (AUTOMATED) 2022-02-09 12:42:00 Kosta Kaylee Aguilar [facility] POCT GLUCOSE (AUTOMATED) 2022-02-09 12:42:00 Kaylee Argueta [facility] PO[facility]SE (AUTOMATED) 2022-02-09 01:08:00 Kosta Farzadlizet Lauren [facility] POCT GLUCOSE (AUTOMATED) 2022-02-09 01:08:00 Kaylee [facility]gueta [facility] URINAL[facility]IS 2022-02-08 22:52:00 Cathleen [facility] URINE CULTURE 2022-02-08 22:52:00 Cathleen [facility] URINALYSIS 2022-02-08 22:52:00 Cathleen [facility] URINE CULTURE 2022-02-08 22:52:00 Cathleen [facility] POCT GLUCOSE (AUTOMATED) 2022-02-08 21:40:00 JacobtutucourtKaylee versity [facility] POCT GLUCOSE (AUTOMATED) 2022-02-08 21:40:00 EdKaylee saavedra versity of [facility] POCT GLUCOSE (AUTOMATED) 2022-02-08 16:02:00 EdtutucourtKaylee versity of [facility] POCT GLUCOSE (AUTOMATED) 2022-02-08 16:02:00 EdtutuweKaylee versity of [facility] POCT GLUCOSE (AUTOMATED) 2022-02-08 13:08:00 EdtutuweKaylee versity of [facility] POCT GLUCOSE (AUTOMATED) 2022-02-08 13:08:00 EdtutucourtKaylee [facility] POCT GLUCOSE (AUTOMATED) 2022-02-08 10:58:00 JacobtutucourtKaylee [facility] POCT GLUCOSE (AUTOMATED) 2022-02-08 10:58:00 KostaKaylee Pixia [facility] LACTIC ACID WHOLE BLOOD 2022-02-08 09:47:00 [facility]irit [facility] LACTIC ACID WHOLE BLOOD 2022-02-08 09:47:00 Severino Beth [facility] PHOSPHORUS 2022-02-08 09:46:00 Severino Beth [facility] MAGNESIUM 2022-02-08 09:46:00 Severino Beth [facility] COMP. METABOLIC PANEL 2022-02-08 09:46:00 Severino Beth [facility] ([id number]) [facility] CBC WITH DIFF 2022-02-08 09:46:00 [facility]FF 2022-02-08 09:46:00 Severino Beth [facility] COMP. METABOLIC PANEL 2022-02-08 09:46:00 Severino Beth [facility] ([id number]) Medical Branch MAGNESIUM 2022-02-08 09:46:00 Severino Beth [facility] PHOSPHORUS 2022-02-08 09:46:00 Severino Beth o f [facility] POCT GLUCOSE (AUTOMATED) 2022-02-08 07:47:00 KostaKaylee [facility] POCT GLUCOSE (AUTOMATED) 2022-02-08 07:47:00 Kosta Kaylee [facility] POCT GLUCOSE (AUTOMATED) 2022-02-08 03:40:00 Kosta Kaylee [facility] POCT GLUCOSE (AUTOMATED) 2022-02-08 03:40:00 Kosta Kaylee [facility] POCT GLUCOSE (AUTOMATED) 2022-02-08 00:43:00 Kosta Kaylee Aguilar [facility] POCT GLUCOSE (AUTOMATED) 2022-02-08 00:43:00 Kosta Farzadlizet Lauren [facility] BASIC METABOLIC PANEL 2022-02-07 23:29:00 Severino Beth [facility] (NA, K, CL, CO2, GLUCOSE, Medica l Branch BUN, CREATININE, CA) BASIC METABOLIC PANEL 2022-02-07 23:29:00 Severino Beth [facility] (NA, K, CL, CO2, GLUCOSE, Medica l Branch BUN, CREATININE, CA) POCT GLUCOSE (AUTOMATED) 2022-02-07 22:28:00 Kosta Kaylee Aguilar [facility] POCT GLUCOSE (AUTOMATED) 2022-02-07 22:28:00 Kosta Farzadlizet Lauren [facility] US RETROPERITONEAL 2022-02-07 22:27:00 Severino Beth [facility] COMPLETE Medical Branch US RETROPERITONEAL 2022-02-07 22:27:00 Severino Beth [facility] COMPLETE [facility] Branch CT ABDOMEN PELVIS WO 2022-02-07 20:05:00 Severino Beth [facility] CONTRAST [facility] CT ABDOMEN PELVIS WO 2022-02-07 20:05:00 Severino Beth [facility] CONTRAST [facility] POCT GLUCOSE (AUTOMATED) 2022-02-07 19:07:00 Kosta Kaylee Pixia [facility] POCT GLUCOSE (AUTOMATED) 2022-02-07 19:07:00 Kosta Farzadlizet Uni versity of [facility] POCT GLUCOSE (AUTOMATED) 2022-02-07 18:00:00 Kosta Farzadlizet Uni versity of [facility] POCT GLUCOSE (AUTOMATED) 2022-02-07 18:00:00 Kaylee Argueta Pixia [facility] PROTEIN CREAT RATIO URINE 2022-02-07 17:45:00 Augusta Hendricks [facility] RANDOM [facility] PROTEIN CREAT RATIO URINE 2022-02-07 17:45:00 Augusta Hendricks [facility] POCT GLUCOSE (AUTOMATED) 2022-02-07 17:25:00 Kosta Farzadlizet [facility] POCT GLUCOSE (AUTOMATED) 2022-02-07 17:25:00 Kaylee Argueta Pixia [facility] LACTIC ACID WHOLE BLOOD 2022-02-07 17:23:00 [facility] 2022-02-07 17:23:00 [facility] BASIC METABOLIC PANEL 2022-02-07 17:22:00 AdeelSeverino [facility] (NA, K, CL, CO2, GLUCOSE, Medica l Branch BUN, CREATININE, CA) BASIC METABOLIC PANEL 2022-02-07 17:22:00 AdeelSeverino [facility] (NA, K, CL, CO2, GLUCOSE, Medica l Branch BUN, CREATININE, CA) POCT GLUCOSE (AUTOMATED) 2022-02-07 16:07:00 Kosta [facility]zadlizet [facility] POCT GLUCOSE (AUTOMATED) 2022-02-07 16:07:00 Kosta Farzadlizet Uni versity of [facility] POCT GLUCOSE (AUTOMATED) 2022-02-07 15:04:00 Kosta Farzadlizet Uni versity of [facility] POCT GLUCOSE (AUTOMATED) 2022-02-07 15:04:00 Kosta Farzadlizet Uni versity [facility] POCT GLUCOSE (AUTOMATED) 2022-02-07 13:57:00 Kosta Farzadlizet [facility] POCT GLUCOSE (AUTOMATED) 2022-02-07 13:57:00 Kosta Farzadlizet [facility] URINE CULTURE 2022-02-07 13:50:00 [facility] URINE CULTURE 2022-02-07 13:50:00 [facility] LACTIC ACID WHOLE BLOOD 2022-02-07 12:57:[address] [facility] LACTIC ACID WHOLE BLOOD 2022-02-07 12:57:[address] [facility] POCT GLUCOSE (AUTOMATED) 2022-02-07 12:55:00 Kosta [facility] POCT GLUCOSE (AUTOMATED) 2022-02-07 12:55:00 Kaylee Argueta [facility] BASIC METABOLIC PANEL 2022-02-07 12:51:00 Kosta [facility] (NA, K, CL, CO2, GLUCOSE, Medica l Branch BUN, CREATININE, CA) BASIC METABOLIC PANEL 2022-02-07 12:51:00 Kotsa [facility] (NA, K, CL, CO2, GLUCOSE, Medica l Branch BUN, CREATININE, CA) MRSA / MSSA SCREEN BY 2022-02-07 10:37:00 [facility] MRSA / MSSA SCREEN BY 2022-02-07 10:37:00 [facility] URINE DRUG (IMMUNOASSAY) 2022-02-07 10:36:00 Kaylee Argueta [facility] - COMPREHENSIVE DRUG [facility] SCREEN LACTIC ACID WHOLE BLOOD 2022-02-07 10:36:[address] [facility] URINE DRUG (LCMSMS) - 2022-02-07 10:36:00 Kosta [facility] SYNTHETIC OPIATES PANEL [facility] LACTIC ACID WHOLE BLOOD 2022-02-07 10:36:[address] [facility] URINE DRUG (IMMUNOASSAY) 2022-02-07 10:36:00 Kosta [facility] DRUG [facility] SCREEN URINE DRUG (LCMSMS) - 2022-02-07 10:36:00 [facility] PHOSPHORUS 2022-02-07 08:58:00 Kosta [facility] MAGNESIUM 2022-02-07 08:58:00 [facility]ATE 2022-02-07 08:58:00 Carlene Alcantara [facility] BASIC METABOLIC PANEL 2022-02-07 08:58:00 [facility] (NA, K, CL, CO2, GLUCOSE, Medica l Branch BUN, CREATININE, CA) BETA HYDROXY-BUTYRATE 2022-02-07 08:58:00 Carlene Alcantara [facility] BASIC METABOLIC PANEL 2022-02-07 08:58:00 [facility] (NA, K, CL, CO2, GLUCOSE, Medica l Branch BUN, CREATININE, CA) MAGNESIUM 2022-02-07 08:58:00 Kosta [facility] PHOSPHORUS 2022-02-07 08:58[facility] WITH DIFF 2022-02-07 06:40[facility]LO[facility] 2022-02-07 06:40[facility] 2022-02-07 06:40:00 [facility] CBC WITH DIFF 2022-02-07 06:40[facility] PO[facility] (AUTOMATED) 2022-02-07 05:14[facility]00 [facility] (AUTOMATED) 2022-02-07 05:14:00 Kosta [facility] ED BLADDER 2022-02-07 04:35:00 Carlene Alcantara [facility] ED BLADDER 2022-02-07 04:35:00 Carlene Alcantara [facility] POCT GLUCOSE (AUTOMATED) 2022-02-07 03:51:00 AutumncourtKaylee [facility] POCT GLUCOSE (AUTOMATED) 2022-02-07 03:51:00 Kosta Kaylee [facility] XR CHEST 1 VW 2022-02-07 02:43:07 Carlene Alcantara [facility] XR ANKLE 3+ VW LEFT 2022-02-07 02:43:07 Carlene Alcantara [facility] XR CHEST 1 VW 2022-02-07 02:43:07 Carlene Alcantara [facility] XR ANKLE 3+ VW LEFT 2022-02-07 02:43:07 Carlene Alcantara [facility] LACTIC ACID WHOLE BLOOD 2022-02-07 02:30:00 Carlene Alcantara [facility] LACTIC ACID WHOLE BLOOD 2022-02-07 02:30:00 Carlene Alcantara [facility] URINALYSIS 2022-02-07 01:38:00 Carlene Alcantara [facility] URINALYSIS 2022-02-07 01:38:00 Carlene Alcantara [facility] POCT GLUCOSE (AUTOMATED) 2022-02-07 01:36:00 Carlene Alcantara [facility] POCT GLUCOSE (AUTOMATED) 2022-02-07 01:36:00 Carlene Alcantara [facility] PHOSPHORUS 2022-02-07 01:24:00 Carlene Alcantara [facility] LIPASE 2022-02-07 01:24:00 Carlene Alcantara [facility] MAGNESIUM 2022-02-07 01:24:00 Carlene Alcantara [facility] TROPONIN I 2022-02-07 01:24:00 Carlene Alcantara [facility] COMP. METABOLIC PANEL 2022-02-07 01:24:00 Carlene Alcantara [facility] ([id number]) Medical Branch SALICYLATE 2022-02-07 01:24:00 Carlene Alcantara [facility] ETHANOL 2022-02-07 01:24:00 Carlene Alcantara [facility] COMP. METABOLIC PANEL 2022-02-07 01:24:00 Carlene Alcantara [facility] ([id number]) Medical Branch LIPASE 2022-02-07 01:24:00 Carlene Alcantara [facility] TROPONIN I 2022-02-07 01:24:00 Carlene Alcantara [facility] ETHANOL 2022-02-07 01:24:00 Carlene Alcantara [facility] ACETAMINOPHEN 2022-02-07 01:24:00 Carlene Alcantara [facility] PHOSPHORUS 2022-02-07 01:24:00 Carlene Alcantara [facility] MAGNESIUM 2022-02-07 01:24:00 Carlene Alcantara [facility] CT LUMBAR SPINE WO 2022-02-07 01:16:52 Carlene Alcantara [facility] CONTRAST [facility] CT THORACIC SPINE WO 2022-02-07 01:16:52 Carlene Alcantara [facility] CONTRAST [facility] CT THORACIC SPINE WO 2022-02-07 01:16:52 Carlene Alcantara [facility] CONTRAST [facility] CT LUMBAR SPINE WO 2022-02-07 01:16:52 Carlene Alcantara [facility] CONTRAST [facility] CT CERVICAL SPINE WO 2022-02-07 01:16:24 Carlene Alcantara [facility] CONTRAST [facility] CT HEAD WO CONTRAST 2022-02-07 01:16:24 Carlene Alcantara [facility] CT HEAD WO CONTRAST 2022-02-07 01:16:24 Carlene Alcantara [facility] CT CERVICAL SPINE WO 2022-02-07 01:16:24 Carlene Alcantara [facility] CONTRAST [facility] BLOOD CULTURE SCREEN 2022-02-07 00:41:00 Carlene Alcantara [facility] BLOOD CULTURE SCREEN 2022-02-07 00:41:00 Carlene Alcantara [facility] [place] COVID-19 (ID NOW RAPID 2022-02-07 00:30:00 Carlene Alcantara [facility] TESTING) Medical Branch LAB ONLY COVID 2022-02-07 00:30:00 Carlene Alcantara [place] [facility] COVID-19 (ID NOW RAPID 2022-02-07 00:30:00 Carlene Alcantara [facility] TESTING) Medical Branch LAB ONLY COVID 2022-02-07 00:30:00 Carlene Alcantara [place] [facility] INTERPRETATION [facility] POCT GLUCOSE (AUTOMATED) 2022-02-07 00:05:00 Carlene Alcantara [facility] POCT GLUCOSE (AUTOMATED) 2022-02-07 00:05:00 Carlene Alcantara [facility] ACUTE CARE VENOUS BLOOD 2022-02-06 23:53:00 Carlene Alcantara [facility] GAS [facility] ACUTE CARE VENOUS BLOOD 2022-02-06 23:53:00 Carlene Alcantara [facility] CBC WITH DIFF 2022-02-06 23:48:00 Carlene Alcantara [facility] CBC WITH DIFF 2022-02-06 23:48:00 Carlene Alcantara [facility] LACTIC ACID WHOLE BLOOD 2022-02-06 23:47:00 Carlene Alcantara [facility] LACTIC ACID WHOLE BLOOD 2022-02-06 23:47:00 Carlene Alcantara [facility] HB ECG ROUTINE & RHYTHM 2022-02-06 23:31:40 Carlene Alcantara [facility] [place] HB ECG ROUTINE & RHYTHM 2022-02-06 23:31:[address] [facility] EMERGENCY DEPARTMENT 2022-02-06 05:01:00 Doctor Unassigned, No [facility] [place] DOCUMENTS Name Medical Branch EMERGENCY DEPARTMENT 2022-02-06 05:01:00 Doctor Unassigned, No [facility] [place] DOCUMENTS Name Medical Branch HOSPITAL ADMISSION 2022-02-06 05:01:00 Doctor Unassigned, No [facility] CT FEMUR LEFT W CONTRAST 2022-01-27 02:34:07 Anthonyip Uni [facility] CT FEMUR LEFT W CONTRAST 2022-01-27 02:34:07 Jonathan Uni [facility] POCT GLUCOSE(AGE >30DAYS) 2022-01-27 01:30:00 Jonathan [facility] PO[facility] GLU[facility]SE(AGE >30DAYS) 2022-01-27 01:30:[address] [facility]ATED) 2022-01-27 01:28:00 Randall Sands [facility] POCT GLUCOSE (AUTOMATED) 2022-01-27 01:28:00 Randall Sands [facility] POCT GLUCOSE (AUTOMATED) 2022-01-27 00:38:00 Randall Sands [facility] POCT GLUCOSE (AUTOMATED) 2022-01-27 00:38:00 Randall Sands [facility] URINALYSIS 2022-01-26 23:58:00 Shavon Gerlach [facility] URINALYSIS 2022-01-26 23:58:00 Shavon [facility] POCT GLUCOSE (AUTOMATED) 2022-01-26 23:26:00 Randall Sands [facility] POCT GLUCOSE (AUTOMATED) 2022-01-26 23:26:00 Randall Sands [facility] BASIC METABOLIC PANEL 2022-01-26 22:24:00 Randall Sands [facility] (NA, K, CL, CO2, GLUCOSE, Medica l Branch BUN, CREATININE, CA) CBC WITH DIFF 2022-01-26 22:24:00 Shavon [facility] COVID-19 (ID NOW RAPID 2022-01-26 22:24:00 [facility] WITH DIFF 2022-01-26 22:24:00 Shavon [facility] BASIC METABOLIC PANEL 2022-01-26 22:24:00 Kaale, Gerlach [facility] (NA, K, CL, CO2, GLUCOSE, Medica l Branch BUN, CREATININE, CA) COVID-19 (ID NOW RAPID 2022-01-26 22:24:00 Randall Sadns [facility] TESTING) Medical Branch LAB ONLY COVID 2022-01-26 22:24:00 Randall Sands [facility] INTERPRETATION Medical Branch EMERGENCY SERVICES 2022-01-26 05:01:00 Doctor Unassigned, No [facility] [place] AGREEMENTS AND Name Medical Branch AUTHORIZATIONS EMERGENCY DEPARTMENT 2022-01-26 05:01:00 [facility]assigned, No [facility] Branch LIPASE 2022-01-17 10:37:00 Jennifer Olivera [facility] COMP. METABOLIC PANEL 2022-01-17 10:37:00 Jennifer Olivera [facility] ([id number]) [facility] [place] CBC WITH DIFF 2022-01-17 10:37:00 Jarod Jennifer [facility] AC PANEL 21 + LACTIC ACID 2022-01-17 10:37:[address] [facility] WITH [facility]FF 2022-01-17 10:37:00 Jennifer Olivera [facility] COMP. METABOLIC PANEL 2022-01-17 10:37:00 Jennifer Olivera [facility] ([id number]) [facility] AC PANEL 21 + LACTIC ACID 2022-01-17 10:37:[address] [facility] 2022-01-17 10:37:00 Jennifer Olivera [facility] URINALYSIS 2022-01-17 10:24:00 Jarod Jennifer [facility] URINALYSIS 2022-01-17 10:24:00 Jennifer Olivera [facility] EMERGENCY SERVICES 2022-01-17 05:01:00 Doctor Unassigned, No [facility] [place] AGREEMENTS AND Name [facility] AUTHORIZATIONS POCT GLUCOSE (AUTOMATED) 2022-01-12 22:53:00 Jennifer Olivera [facility] POCT GLUCOSE (AUTOMATED) 2022-01-12 22:53:00 Jennifer Olivera [facility] POCT GLUCOSE (AUTOMATED) 2022-01-12 12:17:00 Jennifer Olivera [facility] POCT GLUCOSE (AUTOMATED) 2022-01-12 12:17:00 [...] POCT GLUCOSE (AUTOMATED) 2022-01-10 22:37:00 Jennifer Olivera [facility] POCT GLUCOSE (AUTOMATED) 2022-01-10 22:37:00 Jennifer Olivera [facility] POCT GLUCOSE (AUTOMATED) 2022-01-10 18:04:00 Jennifer Olivera [facility] POCT GLUCOSE (AUTOMATED) 2022-01-10 18:04:00 Jennifer Olivera [facility] BASIC METABOLIC PANEL 2022-01-10 14:22:00 Dontae Talley [facility] (NA, K, CL, CO2, GLUCOSE, Medica l Branch BUN, CREATININE, CA) BASIC METABOLIC PANEL 2022-01-10 14:22:00 [facility] ([facility], K, CL, CO2, GLUCOSE, Medica l Branch BUN, CREATININE, CA) POCT GLUCOSE (AUTOMATED) 2022-01-10 13:30:00 Jennifer Olivera [facility] POCT GLUCOSE (AUTOMATED) 2022-01-10 13:30:00 Jennifer Olivera [facility] CRITICAL CARE 2022-01-10 11:11:00 Jennifer Olivera [facility] CRITICAL CARE 2022-01-10 11:11:00 Jennifer Olivera [facility] POCT GLUCOSE (AUTOMATED) 2022-01-10 11:01:00 Jennifer Olivera [facility] POCT GLUCOSE (AUTOMATED) 2022-01-10 11:01:00 Jennifer Olivera [facility] POCT GLUCOSE (AUTOMATED) 2022-01-10 07:19:00 Jennifer Olivera [facility] POCT GLUCOSE (AUTOMATED) 2022-01-10 07:19:00 Jennifer Olivera [facility] BASIC METABOLIC PANEL 2022-01-10 05:53:00 Jennifer Olivera [facility] (NA, K, CL, CO2, GLUCOSE, Medica l Branch BUN, CREATININE, CA) BASIC METABOLIC PANEL 2022-01-10 05:53:00 Jennifer Olivera [facility] (NA, K, CL, CO2, GLUCOSE, Medica l Branch BUN, CREATININE, CA) POCT GLUCOSE (AUTOMATED) 2022-01-10 04:41:00 Jennifer Olivera [facility] POCT GLUCOSE (AUTOMATED) 2022-01-10 04:41:00 Jennifer Olivera [facility] URINALYSIS 2022-01-10 03:59:00 Jennifer Olivera [facility] URINE CULTURE 2022-01-10 03:59:00 Jennifer Olivera [facility] URINALYSIS 2022-01-10 03:59:00 Jennifer Olivera [facility] URINE CULTURE 2022-01-10 03:59:00 Jennifer Olivrea [facility] POCT GLUCOSE (AUTOMATED) 2022-01-10 03:48:00 Jennifer Olivera [facility] POCT GLUCOSE (AUTOMATED) 2022-01-10 03:48:00 Jennifer Olivera [facility] AC PANEL 21 + LACTIC ACID 2022-01-10 02:23:00 Jennifer Olivera [facility] AC PANEL 21 + LACTIC ACID 2022-01-10 02:23:00 Jennifer Olivera [facility] LIPASE 2022-01-10 02:22:00 Jennifer Olivera [facility] COMP. METABOLIC PANEL 2022-01-10 02:22:00 Jennifer Olivera [facility] ([id number]) [facility] CBC WITH DIFF 2022-01-10 02:22:00 Jennifer Olivera [facility] COVID-19 (ID NOW RAPID 2022-01-10 02:22:00 Jennifer Olivera [facility] TESTING) [facility] LAB ONLY COVID 2022-01-10 02:22:00 Jennifer Olivera [facility] INTERPRETATION [facility] CBC WITH DIFF 2022-01-10 02:22:00 Jennifer Olivera [facility] COMP. METABOLIC PANEL 2022-01-10 02:22:00 Jennifer Olivera [facility] ([id number]) Medical Branch LIPASE 2022-01-10 02:22:00 Jennifer Olivera [facility] COVID-19 (ID NOW RAPID 2022-01-10 02:22:00 Jennifer Olivera [facility] TESTING) Medical Branch LAB ONLY COVID 2022-01-10 02:22:00 Jennifer Olivera [facility] [place] INTERPRETATION [facility] HOSPITAL ADMISSION 2022-01-09 05:01:00 Doctor Unassigned, No [facility] vers[facility] EMERGENCY DEPARTMENT 2022-01-09 05:01:00 Doctor Unassigned, No [facility] HOSPITAL ADMISSION 2022-01-09 05:01:00 Doctor Unassigned, No [facility] POCT GLUCOSE (AUTOMATED) 2022-01-06 17:03:00 Negar Guardado Uni versity [facility] POCT GLUCOSE (AUTOMATED) 2022-01-06 16:09:00 Negar Guardado [facility] HEPATIC FUNCTION PANEL 2022-01-06 09:01:00 Carlene Weaver [facility] ([id number]) (ALB,T.PRO,BILI Medical Branch T,BU/BC,ALT,AST,ALK PHOS) BASIC METABOLIC PANEL 2022-01-06 09:01:00 [facility] (NA, K, CL, CO2, GLUCOSE, Medica l Branch BUN, CREATININE, CA) CBC WITH DIFF 2022-01-06 09:01:00 Carlene Weaver [facility] CBC WITH DIFF 2022-01-06 09:01:00 Carlene Weaver [facility] BASIC METABOLIC PANEL 2022-01-06 09:01:00 [facility] (NA, K, CL, CO2, GLUCOSE, Medica l Branch BUN, CREATININE, CA) HEPATIC FUNCTION PANEL 2022-01-06 09:01:00 Carlene Weaver [facility] ([id number]) (ALB,T.PRO,BILI Medical Branch T,BU/BC,ALT,AST,ALK PHOS) POCT GLUCOSE (AUTOMATED) 2022-01-06 08:58:00 Negar Guardado Uni versity [facility] POCT GLUCOSE (AUTOMATED) 2022-01-06 06:53:00 Negar Guardado [facility] versity [facility] POCT GLUCOSE (AUTOMATED) 2022-01-06 05:31:00 Negar Guardado [facility] POCT GLUCOSE (AUTOMATED) 2022-01-06 02:16:00 Negar Guardado [facility] POCT GLUCOSE (AUTOMATED) 2022-01-05 21:50:00 Negar Guardado [facility] BASIC METABOLIC PANEL 2022-01-05 20:45:00 [facility] (NA, K, CL, CO2, GLUCOSE, Medica l Branch BUN, CREATININE, CA) CBC WITH DIFF 2022-01-05 20:45:00 [facility] BASIC METABOLIC PANEL 2022-01-05 20:45:00 [facility] (NA, K, CL, CO2, GLUCOSE, Medica l Branch BUN, CREATININE, CA) CBC WITH DIFF 2022-01-05 20:45:00 [facility] POCT GLUCOSE (AUTOMATED) 2022-01-05 16:44:00 Negar Guardado [facility] POCT GLUCOSE (AUTOMATED) 2022-01-05 13:41:00 Negar Guardado [facility] URINE CULTURE 2022-01-05 06:41:00 Vadim Ferreira [facility] URINE CULTURE 2022-01-05 06:41:00 Vadim Ferreira [facility] POCT GLUCOSE (AUTOMATED) 2022-01-05 06:10:00 Vadim Ferreira [facility] CT ABDOMEN PELVIS W 2022-01-05 05:08:00 Vadim Ferreira [facility] CT ABDOMEN PELVIS W 2022-01-05 05:08:00 Vadim Ferreira [facility] URINALYSIS 2022-01-05 04:34:00 Vadim Ferreira [facility] COVID-19 (ID NOW RAPID 2022-01-05 04:34:00 Vadim Ferreira [facility] TESTING) Medical Branch LAB ONLY COVID 2022-01-05 04:34:[address] [facility] URINALYSIS 2022-01-05 04:34:00 Vadim Ferreira [facility] COVID-19 (ID NOW RAPID 2022-01-05 04:34:00 Vadim Ferreira [facility] TESTING) [facility] [place] LAB ONLY COVID 2022-01-05 04:34:00 Vadim Ferreira [facility] INTERPRETATION [facility] LIPASE 2022-01-05 03:57:00 Vadim Ferreira [facility] COMP. METABOLIC PANEL 2022-01-05 03:57:00 Vadim Ferreira [facility] ([id number]) [facility] CBC WITH DIFF 2022-01-05 03:57:00 Vadim Ferreira [facility] CBC WITH DIFF 2022-01-05 03:57:00 Vadim Ferreira [facility] COMP. METABOLIC PANEL 2022-01-05 03:57:00 Vadim Ferreira [facility] ([id number]) [facility] LIPASE 2022-01-05 03:57:00 Vadim Ferreira [facility] EMERGENCY DEPARTMENT 2022-01-04 05:01:00 Doctor Unassigned, No [facility] HOSPITAL ADMISSION 2022-01-04 05:01:00 Doctor Unassigned, No [facility] POCT GLUCOSE (AUTOMATED) 2021-12-22 21:48:00 [facility] ([facility]OMATED) 2021-12-22 17:03:00 Edkeri, [facility] POCT GLUCOSE (AUTOMATED) 2021-12-22 17:03:00 EdionweFarzady [facility] PO[facility]SE (AUTOMATED) 2021-12-22 12:44:00 Edioncourt [facility] POCT GLUCOSE (AUTOMATED) 2021-12-22 12:44:00 EdKaylee saavedra Uni [facility] BASIC METABOLIC PANEL 2021-12-22 10:29:00 Negar Guardado [facility] (NA, K, CL, CO2, GLUCOSE, Medica l Branch BUN, CREATININE, CA) CBC WITH DIFF 2021-12-22 10:29:00 Geo [facility] MAGNESIUM 2021-12-22 10:29:00 Geo [facility] MAGNESIUM 2021-12-22 10:29:[facility] 2021-12-22 10:29:00 Negar Guardado [facility] (NA, K, CL, CO2, GLUCOSE, Medica l Branch BUN, CREATININE, CA) CBC WITH DIFF 2021-12-22 10:29:00 [facility] POCT GLUCOSE (AUTOMATED) 2021-12-22 10:28:00 Edionwe, [facility] POCT GLUCOSE (AUTOMATED) 2021-12-22 10:28:00 Edionwe, [facility] POCT GLUCOSE (AUTOMATED) 2021-12-22 05:33:00 Edionwe, [facility] [place] [facility] [place] POCT GLUCOSE (AUTOMATED) 2021-12-22 05:33:00 Edionwe, [facility] [place] [facility] POCT GLUCOSE (AUTOMATED) 2021-12-22 04:37:00 Edionwe, [facility] [place] [facility] POCT GLUCOSE (AUTOMATED) 2021-12-22 04:37:00 Edionwe, [facility] [place] [facility] POCT GLUCOSE (AUTOMATED) 2021-12-22 02:29:00 Edionwe, [facility] [place] [facility] POCT GLUCOSE (AUTOMATED) 2021-12-22 02:29:00 Edionwe, [facility] [place] [facility] POCT GLUCOSE (AUTOMATED) 2021-12-22 00:52:00 Edionwe, [facility] [place] [facility] POCT GLUCOSE (AUTOMATED) 2021-12-22 00:52:00 Edionwe, [facility] [place] [facility] POCT GLUCOSE (AUTOMATED) 2021-12-21 21:52:00 Edionwe, [facility] [place] [facility] POCT GLUCOSE (AUTOMATED) 2021-12-21 21:52:00 Edionwe [facility] POCT GLUCOSE (AUTOMATED) 2021-12-21 16:42:00 KostaKaylee [facility] POCT GLUCOSE (AUTOMATED) 2021-12-21 16:42:00 KostaKaylee [facility] XR CHEST 1 VW 2021-12-21 14:05:00 Geo [facility] XR SKULL <4 VW 2021-12-21 14:05:00 Geo [facility] XR ABDOMEN 2 VW 2021-12-21 14:05:00 Geo [facility] XR ABDOMEN 2 VW 2021-12-21 14:05:00 Geo [facility] XR CHEST 1 VW 2021-12-21 14:05:00 Geo [facility] XR SKULL <4 VW 2021-12-21 14:05:00 Geo [facility] POCT GLUCOSE (AUTOMATED) 2021-12-21 12:47:00 Kosta Kaylee [facility] POCT GLUCOSE (AUTOMATED) 2021-12-21 12:47:00 Kosta Kaylee Aguilar [facility] POCT GLUCOSE (AUTOMATED) 2021-12-21 08:59:00 Kosta Kaylee [facility] POCT GLUCOSE (AUTOMATED) 2021-12-21 08:59:00 Kosta Kaylee [facility] GLYCOSYLATED HEMOGLOBIN 2021-12-21 08:56:00 Severino Beth [facility] (A1C) [facility] CBC WITH DIFF 2021-12-21 08:56:00 Kirit [facility] BASIC METABOLIC PANEL 2021-12-21 08:56:00 Severino Beth [facility] (NA, K, CL, CO2, GLUCOSE, Medica l Branch BUN, CREATININE, CA) MAGNESIUM 2021-12-21 08:56:00 Severino Beth [facility] PHOSPHORUS 2021-12-21 08:56:00 Kirit [facility] PHOSPHORUS 2021-12-21 08:56:00 Abdullah, [facility] MAGNESIUM 2021-12-21 08:56:00 Kirit [facility] BASIC METABOLIC PANEL 2021-12-21 08:56:00 Severino Beth [facility] (NA, K, CL, CO2, GLUCOSE, Medica l Branch BUN, CREATININE, CA) CBC WITH DIFF 2021-12-21 08:56:00 Kirit [facility] GLYCOSYLATED HEMOGLOBIN 2021-12-21 08:56:00 Severino Beth [facility] (A1C) [facility] POCT GLUCOSE (AUTOMATED) 2021-12-21 04:27:00 Kosta Infinity Boxy [facility] POCT GLUCOSE (AUTOMATED) 2021-12-21 04:27:00 Kosta Farzady [facility] POCT GLUCOSE (AUTOMATED) 2021-12-21 01:11:00 Kosta Farzady [facility] POCT GLUCOSE (AUTOMATED) 2021-12-21 01:11:00 Edkeri [facility] POCT GLUCOSE (AUTOMATED) 2021-12-20 21:02:00 Edkeri, [facility] POCT GLUCOSE (AUTOMATED) 2021-12-20 21:02:00 Edkeri, [facility] POCT GLUCOSE (AUTOMATED) 2021-12-20 16:08:00 Edkeri [facility] POCT GLUCOSE (AUTOMATED) 2021-12-20 16:08:00 Kosta [facility] POCT GLUCOSE (AUTOMATED) 2021-12-20 12:39:00 Edkeri, [facility] POCT GLUCOSE (AUTOMATED) 2021-12-20 12:39:00 [employer] Pixia versity of [facility] LACTIC ACID WHOLE BLOOD 2021-12-20 09:25:00 Mario Johnson [facility] CBC WITH DIFF 2021-12-20 09:25:00 Kosta [facility] BASIC METABOLIC PANEL 2021-12-20 09:25:00 Kosta [facility] (NA, K, CL, CO2, GLUCOSE, Medica l Branch BUN, CREATININE, CA) BASIC METABOLIC PANEL 2021-12-20 09:25:00 Autumncourt [facility] (NA, K, CL, CO2, GLUCOSE, Medica l Branch BUN, CREATININE, CA) CBC WITH DIFF 2021-12-20 09:25:00 Kosta [facility] LACTIC ACID WHOLE BLOOD 2021-12-20 09:25:[address] [facility] POCT GLUCOSE (AUTOMATED) 2021-12-20 08:56:00 Kosta [facility] POCT GLUCOSE (AUTOMATED) 2021-12-20 08:56:00 Kosta [facility] POCT GLUCOSE (AUTOMATED) 2021-12-20 04:51:00 Kosta [facility] POCT GLUCOSE (AUTOMATED) 2021-12-20 04:51:00 Kosta [facility] URINALYSIS 2021-12-20 02:47:00 Alex [facility] URINALYSIS 2021-12-20 02:47:00 Alex [facility] POCT GLUCOSE (AUTOMATED) 2021-12-20 02:29:00 Mario Johnson [facility] POCT GLUCOSE (AUTOMATED) 2021-12-20 02:29:00 Mario Johnson [facility] HB ECG ROUTINE & RHYTHM 2021-12-20 00:33:38 Alex [facility] HB ECG ROUTINE & RHYTHM 2021-12-20 00:33:38 Alex [facility] URINALYSIS 2021-12-20 00:28:00 [facility] 2021-12-20 00:28:00 Mario Johnson [facility] URINALYSIS 2021-12-20 00:28:00 [facility] 2021-12-20 00:28:00 Alex [facility] CBC WITH DIFF 2021-12-20 00:25:00 Alex [facility] COMP. METABOLIC PANEL 2021-12-20 00:25:00 Alex [facility] ([id number]) Medical Branch LIPASE 2021-12-20 00:25:00 Alex [facility] LACTIC ACID WHOLE BLOOD 2021-12-20 00:25:[address] [facility] ACUTE CARE VENOUS BLOOD 2021-12-20 00:25:00 Alex [facility] BLOOD CULTURE SCREEN 2021-12-20 00:25:00 Alex [facility] BLOOD CULTURE SCREEN 2021-12-20 00:25:00 Alex [facility] LIPASE 2021-12-20 00:25:00 Alex [facility] COMP. METABOLIC PANEL 2021-12-20 00:25:00 Alex [facility] ([id number]) [facility] ACUTE CARE VENOUS BLOOD 2021-12-20 00:25:00 Alex [facility] CBC WITH DIFF 2021-12-20 00:25:00 Alex [facility] LACTIC ACID WHOLE BLOOD 2021-12-20 00:25:[address] [facility] EMERGENCY DEPARTMENT 2021-12-19 05:01:00 Doctor Unassigned, No U niversity [facility] DOCUMENTS [facility] HOSPITAL ADMISSION 2021-12-19 05:01:00 Doctor Unassigned, No Uni versity of [facility] CBC WITH DIFF 2021-12-18 17:57:00 [facility] BASIC METABOLIC PANEL 2021-12-18 17:57:00 [facility] ([facility], K, CL, CO2, GLUCOSE, Medica l Branch BUN, CREATININE, CA) MAGNESIUM 2021-12-18 17:57:00 [facility] MAGNESIUM 2021-12-18 17:57:00 [facility] BASIC METABOLIC PANEL 2021-12-18 17:57:00 [facility] (NA, K, CL, CO2, GLUCOSE, Medica l Branch BUN, CREATININE, CA) CBC WITH DIFF 2021-12-18 17:57:00 [facility] POCT GLUCOSE (AUTOMATED) 2021-12-18 16:49:00 Terminella, Thomas [facility] POCT GLUCOSE (AUTOMATED) 2021-12-18 16:49:00 Terminella, Thomas [facility] POCT GLUCOSE (AUTOMATED) 2021-12-18 12:56:00 Terminella, Thomas [facility] POCT GLUCOSE (AUTOMATED) 2021-12-18 12:56:00 Terminella, Thomas [facility] POCT GLUCOSE (AUTOMATED) 2021-12-18 09:41:00 Terminella, Thomas [facility] POCT GLUCOSE (AUTOMATED) 2021-12-18 09:41:00 Terminella, Thomas [facility] POCT GLUCOSE (AUTOMATED) 2021-12-18 05:08:00 Terminella, Thomas [facility] POCT GLUCOSE (AUTOMATED) 2021-12-18 05:08:00 Terminella, Thomas [facility] POCT GLUCOSE (AUTOMATED) 2021-12-18 01:26:00 Terminella, Thomas [facility] POCT GLUCOSE (AUTOMATED) 2021-12-18 01:26:00 Terminella, Thomas [facility] POCT GLUCOSE (AUTOMATED) 2021-12-17 21:41:00 Terminella, Thomas [facility] POCT GLUCOSE (AUTOMATED) 2021-12-17 21:41:00 Terminella, Thomas [facility] POCT GLUCOSE (AUTOMATED) 2021-12-17 17:07:00 Terminella, Thomas [facility] POCT GLUCOSE (AUTOMATED) 2021-12-17 17:07:00 Terminella, Thomas [facility] POCT GLUCOSE (AUTOMATED) 2021-12-17 14:01:00 Terminella, Thomas [facility] POCT GLUCOSE (AUTOMATED) 2021-12-17 14:01:00 Terminella, Thomas [facility] POCT GLUCOSE (AUTOMATED) 2021-12-17 09:18:00 Terminella, Thomas [facility] POCT GLUCOSE (AUTOMATED) 2021-12-17 09:18:00 Terminella, Thomas [facility] POCT GLUCOSE (AUTOMATED) 2021-12-17 01:43:00 Terminella, Thomas [facility] POCT GLUCOSE (AUTOMATED) 2021-12-17 01:43:00 Terminella, Thomas [facility] POCT GLUCOSE (AUTOMATED) 2021-12-16 21:24:00 Vito Mckeon [facility] POCT GLUCOSE (AUTOMATED) 2021-12-16 21:24:00 AlbbessyamiVito Uni vers[facility] of [facility] POCT GLUCOSE (AUTOMATED) 2021-12-16 16:25:00 AlbbessyamiVito [facility] POCT GLUCOSE (AUTOMATED) 2021-12-16 16:25:00 AlbVito cuenca [facility] URINALYSIS 2021-12-16 15:46:00 [facility] URINE CULTURE 2021-12-16 15:46:00 Talley [facility] URINALYSIS 2021-12-16 15:46:00 Talley, [facility] URINE CULTURE 2021-12-16 15:46:00 Talley, [facility] POCT GLUCOSE (AUTOMATED) 2021-12-16 15:36:00 AlbVito cuenca [facility] POCT GLUCOSE (AUTOMATED) 2021-12-16 15:36:00 AlbVito cuenca [facility] POCT GLUCOSE (AUTOMATED) 2021-12-16 14:25:00 AlbVito cuenca versity [facility] POCT GLUCOSE (AUTOMATED) 2021-12-16 14:25:00 Vito Mckeon versity [facility] BASIC METABOLIC PANEL 2021-12-16 13:45:00 Vito Mckeon [facility] (NA, K, CL, CO2, GLUCOSE, Medica l Branch BUN, CREATININE, CA) BASIC METABOLIC PANEL 2021-12-16 13:45:00 Vito Mckeon [facility] (NA, K, CL, CO2, GLUCOSE, Medica l Branch BUN, CREATININE, CA) POCT GLUCOSE (AUTOMATED) 2021-12-16 13:34:00 Vito Mckeon Uni versity [facility] POCT GLUCOSE (AUTOMATED) 2021-12-16 13:34:00 Vito Mckeon [facility] CRITICAL CARE 2021-12-16 13:05:05 [facility] CRITICAL CARE 2021-12-16 13:05:05 [facility] POCT GLUCOSE (AUTOMATED) 2021-12-16 12:23:00 [facility] 2021-12-16 12:23:00 Vito Mckeon versity [facility] POCT GLUCOSE (AUTOMATED) 2021-12-16 11:24:00 [facility]) 2021-12-16 11:24:00 [facility]OMATED) 2021-12-16 10:33:00 AlbVito cuenca Uni versity [facility] POCT GLUCOSE (AUTOMATED) 2021-12-16 10:33:00 [facility]OLIC PANEL 2021-12-16 09:32:00 Vito Mckeon [facility] (NA, K, CL, CO2, GLUCOSE, Medica l Branch BUN, CREATININE, CA) BASIC METABOLIC PANEL 2021-12-16 09:32:00 Vito Mckeon [facility] (NA, K, CL, CO2, GLUCOSE, Medica l Branch BUN, CREATININE, CA) POCT GLUCOSE (AUTOMATED) 2021-12-16 09:30:00 AlbVito cuenca [facility] POCT GLUCOSE (AUTOMATED) 2021-12-16 09:30:00 Albustami, Vito [facility] POCT GLUCOSE (AUTOMATED) 2021-12-16 08:27:00 AlbustamiVito [facility] POCT GLUCOSE (AUTOMATED) 2021-12-16 08:27:00 Albustami, Vito [facility] POCT GLUCOSE (AUTOMATED) 2021-12-16 07:23:00 Albustami, Vito [facility] POCT GLUCOSE (AUTOMATED) 2021-12-16 07:23:00 Albustami, Vito [facility] POCT GLUCOSE (AUTOMATED) 2021-12-16 06:22:00 AlbVito cuenca Uni versity [facility] POCT GLUCOSE (AUTOMATED) 2021-12-16 06:22:00 AlbustamiVito Uni versity [facility] BASIC METABOLIC PANEL 2021-12-16 05:30:00 [facility] (NA, K, CL, CO2, GLUCOSE, Medica l Branch BUN, CREATININE, CA) BASIC METABOLIC PANEL 2021-12-16 05:30:00 [facility] (NA, K, CL, CO2, GLUCOSE, Medica l Branch BUN, CREATININE, CA) POCT GLUCOSE (AUTOMATED) 2021-12-16 05:27:00 AlbbessyamiVito [facility] POCT GLUCOSE (AUTOMATED) 2021-12-16 05:27:00 AlbustamiVito [facility] POCT GLUCOSE (AUTOMATED) 2021-12-16 04:23:00 AlbustamiVito [facility] POCT GLUCOSE (AUTOMATED) 2021-12-16 04:23:00 Albbessyami, Vito [facility] POCT GLUCOSE (AUTOMATED) 2021-12-16 03:19:00 AlbbessyamiVito [facility] POCT GLUCOSE (AUTOMATED) 2021-12-16 03:19:00 Vito Mckeon [facility] POCT GLUCOSE (AUTOMATED) 2021-12-16 02:24:00 AlbVito [facility]enc[facility] ([facility]OMATED) 2021-12-16 02:24:00 Vito Mckeon [facility] KETONES URINE 2021-12-16 01:49:00 [facility] KETONES URINE 2021-12-16 01:49:00 [facility] BETA HYDROXY-BUTYRATE 2021-12-16 01:44:00 Talley, [facility] BASIC METABOLIC PANEL 2021-12-16 01:44:00 [facility] (NA, K, CL, CO2, GLUCOSE, Medica l Branch BUN, CREATININE, CA) BETA HYDROXY-BUTYRATE 2021-12-16 01:44:00 Talley, [facility] BASIC METABOLIC PANEL 2021-12-16 01:44[facility], [facility], [facility], CO2, GLUCOSE, Medica l Branch BUN, CREATININE, CA) POCT GLUCOSE (AUTOMATED) 2021-12-16 01:24:00 Vito Mckeon [facility] POCT GLUCOSE (AUTOMATED) 2021-12-16 01:24:00 Vito Mckeon [facility] POCT GLUCOSE (AUTOMATED) 2021-12-16 00:18:00 AlbVito cuenca Uni [facility] POCT GLUCOSE (AUTOMATED) 2021-12-16 00:18:00 Vito Mckeon [facility] POCT GLUCOSE (AUTOMATED) 2021-12-15 22:56:00 AlbVito cuenca [facility]OMATED) 2021-12-15 22:56:00 AlbVito cuenca [facility] BASIC METABOLIC PANEL 2021-12-15 22:03:00 Rosalind [facility] (NA, K, CL, CO2, GLUCOSE, Medica l Branch BUN, CREATININE, CA) BASIC METABOLIC PANEL 2021-12-15 22:03:00 [facility] (NA, K, CL, CO2, GLUCOSE, Medica l Branch BUN, CREATININE, CA) POCT GLUCOSE (AUTOMATED) 2021-12-15 21:50:00 AlbVito cuenca [facility] POCT GLUCOSE (AUTOMATED) 2021-12-15 21:50:00 AlbustamiVito Uni vers[facility] POCT GLUCOSE (AUTOMATED) 2021-12-15 20:39:00 Albbessyami, Vito [facility] POCT GLUCOSE (AUTOMATED) 2021-12-15 20:39:00 AlbbessyamiVito [facility] POCT GLUCOSE (AUTOMATED) 2021-12-15 18:58:00 AlbbessyamiVito Uni versity [facility] POCT GLUCOSE (AUTOMATED) 2021-12-15 18:58:00 AlbVito cuenca Uni [facility] BASIC METABOLIC PANEL 2021-12-15 17:46:00 [facility] (NA, K, CL, CO2, GLUCOSE, Medica l Branch BUN, CREATININE, CA) BASIC METABOLIC PANEL 2021-12-15 17:46:00 [facility] (NA, K, CL, CO2, GLUCOSE, Medica l Branch BUN, CREATININE, CA) POCT GLUCOSE (AUTOMATED) 2021-12-15 17:39:00 AlbVito cuenca Uni versity [facility] POCT GLUCOSE (AUTOMATED) 2021-12-15 17:39:00 AlbbessyamiVito Uni vers[facility] POCT GLUCOSE (AUTOMATED) 2021-12-15 16:22:00 AlbbessyamiVito [facility] POCT GLUCOSE (AUTOMATED) 2021-12-15 16:22:00 AlbbessyamiVito [facility] POCT GLUCOSE (AUTOMATED) 2021-12-15 15:27:00 AlbbessyamiVito [facility] POCT GLUCOSE (AUTOMATED) 2021-12-15 15:27:00 Albustami, Vito [facility] POCT GLUCOSE (AUTOMATED) 2021-12-15 14:17:00 Albjoellen [facility] POCT GLUCOSE (AUTOMATED) 2021-12-15 14:17:00 Rosalind [facility] CBC WITHOUT DIFF 2021-12-15 13:33:00 Albjoellen [facility] CBC WITHOUT DIFF 2021-12-15 13:33:00 Rosalind [facility] POCT GLUCOSE (AUTOMATED) 2021-12-15 13:20:00 Albjolelen [facility] POCT GLUCOSE (AUTOMATED) 2021-12-15 13:20:00 Rosalind [facility] POCT GLUCOSE (AUTOMATED) 2021-12-15 12:13:00 Rosalind [facility] POCT GLUCOSE (AUTOMATED) 2021-12-15 12:13:00 Rosalind [facility] XR CHEST 1 VW 2021-12-15 11:46:06 [facility]ST 1 VW 2021-12-15 11:46:06 Roaslind [facility] MAGNESIUM 2021-12-15 10:54:00 [facility] MRSA / MSSA SCREEN BY 2021-12-15 10:54:00 [facility], [facility] BASIC METABOLIC PANEL 2021-12-15 10:54:00 Rosalind [facility] (NA, K, CL, CO2, GLUCOSE, Medica l Branch BUN, CREATININE, CA) OSMOLALITY, SERUM OR 2021-12-15 10:54:00 Rosalind Vito [facility] PLASMA [facility] PHOSPHORUS 2021-12-15 10:54:00 Rosalind [facility] BETA HYDROXY-BUTYRATE 2021-12-15 10:54:00 Rosalind [facility] PHOSPHORUS 2021-12-15 10:54:00 Rosalind [facility] MAGNESIUM 2021-12-15 10:54:00 Rosalind [facility] OSMOLALITY, SERUM OR 2021-12-15 10:54:00 Vito Mckeon [facility] PLASMA [facility] BETA HYDROXY-BUTYRATE 2021-12-15 10:54:00 Rosalind [facility] BASIC METABOLIC PANEL 2021-12-15 10:54:00 [facility] (NA, K, CL, CO2, GLUCOSE, Medica l Branch BUN, CREATININE, CA) MRSA / MSSA SCREEN BY 2021-12-15 10:54:00 [facility] PCR, NARES [facility] POCT GLUCOSE (AUTOMATED) 2021-12-15 10:53:00 Vito Mckeon [facility] POCT GLUCOSE (AUTOMATED) 2021-12-15 10:53:00 Vito Mckeon [facility] POCT GLUCOSE (AUTOMATED) 2021-12-15 08:46:00 Jennifer Olivera [facility] POCT GLUCOSE (AUTOMATED) 2021-12-15 08:46:00 Jennifer Olivera [facility] POCT GLUCOSE (AUTOMATED) 2021-12-15 07:39:00 [facility] POCT GLUCOSE (AUTOMATED) 2021-12-15 07:39:00 Jennifer [facility] POCT GLUCOSE (AUTOMATED) 2021-12-15 07:02:00 Jennifer Olivera versity of [facility] POCT GLUCOSE (AUTOMATED) 2021-12-15 07:02:00 Jennifer Olivera versity of [facility] POCT GLUCOSE (AUTOMATED) 2021-12-15 06:17:00 Jennifer Olivera versity of [facility] POCT GLUCOSE (AUTOMATED) 2021-12-15 06:17:00 Jennifer Olivera [facility] AC PANEL 21 + LACTIC ACID 2021-12-15 05:36:00 Jennifer Olivera iversity [facility] AC PANEL 21 + LACTIC ACID 2021-12-15 05:36:00 [facility] PO[facility] (AUTOMATED) 2021-12-15 04:58:00 Jennifer Olivera [facility] POCT GLUCOSE (AUTOMATED) 2021-12-15 04:58:00 Jennifer Olivera [facility] CT ABDOMEN PELVIS W 2021-12-15 04:33:00 Jennifer Olivera [facility] CONTRAST [facility] CT ABDOMEN PELVIS W 2021-12-15 04:33:00 Jennifer Olivera [facility] CONTRAST [facility] COMP. METABOLIC PANEL 2021-12-15 04:20:00 Jennifer Olivera [facility] ([id number]) [facility] COMP. METABOLIC PANEL 2021-12-15 04:20:00 Jennifer Olivera [facility] ([id number]) [facility] CBC WITH DIFF 2021-12-15 03:14:00 Jennifer Olivera [facility] BLOOD CULTURE SCREEN 2021-12-15 03:14:00 Jennifer Olivera [facility] BLOOD CULTURE SCREEN 2021-12-15 03:14:00 Jennifer Olivera [facility] CBC WITH DIFF 2021-12-15 03:14:00 Jennifer Olivera [facility] ACTIVATED PARTIAL 2021-12-15 03:13:00 Jennifer [facility] / INR 2021-12-15 03:13:00 Jennifer Olivera [facility] LIPASE 2021-12-15 03:13:00 Jennifer Olivera [facility] TROPONIN I 2021-12-15 03:13:00 Jennifer Olivera [facility] N-TERMINAL PRO-BNP 2021-12-15 03:13:00 Jennifer Olivera [facility] LIPASE 2021-12-15 03:13:00 Jennifer Olivera [facility] TROPONIN I 2021-12-15 03:13:00 Jennifer Olivera [facility] PROTHROMBIN TIME / INR 2021-12-15 03:13:00 Jennifer Olivera [facility] ACTIVATED PARTIAL 2021-12-15 03:13:00 Jennifer Olivera [facility] N-TERMINAL PRO-BNP 2021-12-15 03:13:00 Jennifer Olivera [facility] LACTIC ACID WHOLE BLOOD 2021-12-15 03:12:00 Jennifer Olivera [facility] LACTIC ACID WHOLE BLOOD 2021-12-15 03:12:00 Jarod Jennifer [facility] EKG-12 LEAD 2021-12-15 01:55:16 Doctor Unassigned, No Univer sity [facility] EKG-12 LEAD 2021-12-15 01:55:16 Doctor Unassigned, No Univer sity [facility] EMERGENCY DEPARTMENT 2021-12-14 05:01:00 [facility]-12[facility]14 05:01:00 Doctor Unassigned, No Uni versity [facility] BASIC METABOLIC PANEL 2021-11-28 09:31:00 [facility] [address] [facility] (NA, K, CL, CO2, GLUCOSE, Medica l Branch BUN, CREATININE, CA) CBC WITH DIFF 2021-11-28 09:31:00 [facility]OLIC PANEL 2021-11-28 09:31:00 [facility] [address] (NA, K, CL, CO2, GLUCOSE, Medica l Branch BUN, CREATININE, CA) CBC WITH DIFF 2021-11-28 09:31:00 [facility] BASIC METABOLIC PANEL 2021-11-27 08:57:00 [facility] [address] (NA, K, CL, CO2, GLUCOSE, Medica l Branch BUN, CREATININE, CA) CBC WITH DIFF 2021-11-27 08:57:00 [facility] BASIC METABOLIC PANEL 2021-11-27 08:57:00 [facility] [address] (NA, K, CL, CO2, GLUCOSE, Medica l Branch BUN, CREATININE, CA) CBC WITH DIFF 2021-11-27 08:57:00 [facility] CBC WITH DIFF 2021-11-24 10:55:00 Courtney Mendes [facility] COMP. METABOLIC PANEL 2021-11-24 10:55:00 Courtney Mendes [id number] N-TERMINAL PRO-BNP 2021-11-24 10:55:00 Courtney Mendes [facility] COMP. METABOLIC PANEL 2021-11-24 10:55:00 Courtney Mendes [facility] ([id number]) [facility] CBC WITH DIFF 2021-11-24 10:55:00 Yolis jennifer [facility] N-TERMINAL PRO-BNP 2021-11-24 10:55:00 Courtney Mendes [facility] CBC WITH DIFF 2021-11-23 11:33:00 Carlene Weaver [facility] COMP. METABOLIC PANEL 2021-11-23 11:33:00 Courtney Mendes [facility] ([id number]) [facility] N-TERMINAL PRO-BNP 2021-11-23 11:33:00 Courtney Mendes [facility] MAGNESIUM 2021-11-23 11:33:00 Courtney Mendes [facility] MAGNESIUM 2021-11-23 11:33:00 Courtney Mendes [facility] COMP. METABOLIC PANEL 2021-11-23 11:33:00 Courtney Mendes [facility] ([id number]) [facility] CBC WITH DIFF 2021-11-23 11:33:00 [facility] 2021-11-23 11:33:00 Courtney Mendes [facility] ASPIRATE OR ABSCESS 2021-11-22 21:31:00 [facility]/ANAEROBIC Medica l Branch ) ASPIRATE OR ABSCESS 2021-11-22 21:31:00 Lon[facility] CULTURE(AEROBIC/ANAEROBIC Medica l Branch ) PROTEIN CREAT RATIO URINE 2021-11-22 11:11:00 [facility] RANDOM 2021-11-22 11:11:00 Courtney Mendes [facility] SODIUM, URINE RANDOM 2021-11-22 11:11:00 Courtney Mendes [facility] PROTEIN CREAT RATIO URINE 2021-11-22 11:11:00 Courtney Mendes [facility] XR CHEST 1 VW 2021-11-22 11:07:43 Courtney Mendes [facility] XR FOOT 3+ VW LEFT 2021-11-22 11:07:43 Courtney Mendes [facility] XR CHEST 1 VW 2021-11-22 11:07:43 Yolis jennifer [facility] XR FOOT 3+ VW LEFT 2021-11-22 11:07:43 Courtney Mendes [facility] URINE DRUG (IMMUNOASSAY) 2021-11-22 11:07:00 Courtney Mendes [facility] SCREEN URINE DRUG (LCMSMS) - 2021-11-22 11:07:00 Courtney Mendes [facility] OPIATES PANEL [facility] URINE DRUG (IMMUNOASSAY) 2021-11-22 11:07:00 Courtney Mendes [facility] SCREEN URINE DRUG (LCMSMS) - 2021-11-22 11:07:00 Courtney Mendes [facility] SYNTHETIC OPIATES PANEL [facility] Branch SEDIMENTATION RATE 2021-11-22 11:03:00 Courtney Mendes [facility] PROCALCITONIN 2021-11-22 11:03:00 Yolis jennifer [facility] CBC WITH DIFF 2021-11-22 11:03:00 Yolis jennifer [facility] COMP. METABOLIC PANEL 2021-11-22 11:03:00 Courtney Mendes [facility] ([id number]) [facility] N-TERMINAL PRO-BNP 2021-11-22 11:03:00 Courtney Mendes [facility] MAGNESIUM 2021-11-22 11:03:00 Yolis jennifer [facility] PHOSPHORUS 2021-11-22 11:03:00 Yolis [facility] CREATINE KINASE 2021-11-22 11:03:00 Yolis [facility] VITAMIN D, 25-OH 2021-11-22 11:03:00 Yolis [facility] VITAMIN B12, LEVEL 2021-11-22 11:03:00 Yolis [facility] GLYCOSYLATED HEMOGLOBIN 2021-11-22 11:03:00 Yolis [facility] PHOSPHORUS 2021-11-22 11:03:00 Yolis [facility] CREATINE KINASE 2021-11-22 11:03:00 Yolis jennifer [facility] MAGNESIUM 2021-11-22 11:03:00 Yolis [facility] VITAMIN B12, LEVEL 2021-11-22 11:03:00 Yolis [facility] COMP. METABOLIC PANEL 2021-11-22 11:03:00 Yolis jennifer [facility] ([id number]) [facility] SEDIMENTATION RATE 2021-11-22 11:03:00 Yolis [facility] CBC WITH DIFF 2021-11-22 11:03:00 Yolis jennifer [facility] GLYCOSYLATED HEMOGLOBIN 2021-11-22 11:03:00 Yolis [facility] N-TERMINAL PRO-BNP 2021-11-22 11:03:00 Yolis [facility] VITAMIN D, 25-OH 2021-11-22 11:03:00 Yolis [facility] PROCALCITONIN 2021-11-22 11:03:00 Yolis [facility] CT ANGIOGRAM LOWER 2021-11-22 03:39:00 Jennifer Olivera [facility] EXTREMITY LEFT W CONTRAST Medica l Branch CT ANGIOGRAM LOWER 2021-11-22 03:39:00 Jennifer Olivera [facility] EXTREMITY LEFT W CONTRAST Medica l Branch CT HEAD WO CONTRAST 2021-11-22 03:25:00 Jennifer Olivera [facility] CT HEAD WO CONTRAST 2021-11-22 03:25:00 Jennifer Olivera [facility] URINALYSIS 2021-11-22 01:22:00 Jennifer Olivera [facility] URINE CULTURE 2021-11-22 01:22:00 Jennifer Olivera [facility] URINALYSIS 2021-11-22 01:22:00 Jennifer Olivera [facility] URINE CULTURE 2021-11-22 01:22:00 Jennifer Olivera [facility] CBC WITH DIFF 2021-11-22 00:58:00 Jennifer Olivera [facility] ACTIVATED PARTIAL 2021-11-22 00:58:00 Jennifer Olivera [facility] PR[facility] / INR 2021-11-22 00:58:00 Jennifer Olivera [facility] COMP. METABOLIC PANEL 2021-11-22 00:58:00 Jennifer Olivera [facility] ([id number]) [facility] BLOOD CULTURE SCREEN 2021-11-22 00:58:00 Jennifer Olivera [facility] LACTIC ACID WHOLE BLOOD 2021-11-22 00:58:00 Jennifer Olivera [facility] N-TERMINAL PRO-BNP 2021-11-22 00:58:00 Courtney Mendes [facility] MAGNESIUM 2021-11-22 00:58:00 Courtney Mendes [facility] PHOSPHORUS 2021-11-22 00:58:00 Courtney Mendes [facility] FERRITIN SERUM 2021-11-22 00:58:00 Yolis jennifer [facility] IRON PANEL 2021-11-22 00:58:00 Courtney Mendes [facility] THYROID STIMULATING 2021-11-22 00:58:00 Courtney Mendes [facility] HORMONE [facility] LIPID PANEL (46650)(TOTAL 2021-11-22 00:58:00 [facility] CHOLE[facility], [facility] Branch TRIGLYCERIDES, HDL) BLOOD CULTURE SCREEN 2021-11-22 00:58:00 Jennifer Olivera [facility] ity [facility] [place] PHOSPHORUS 2021-11-22 00:58:00 Courtney Mendes [facility] [place] MAGNESIUM 2021-11-22 00:58:00 Yolis [facility] FERRITIN SERUM 2021-11-22 00:58:00 Yolis jennifer [facility] THYROID STIMULATING 2021-11-22 00:58:00 [facility] COMP. METABOLIC PANEL 2021-11-22 00:58:00 Jennifer Olivera [facility] ([id number]) Medical Branch LIPID PANEL (41300)(TOTAL 2021-11-22 00:58:00 [facility]LE[facility] Medical Branch TRIGLYCERIDES, HDL) IRON PANEL 2021-11-22 00:58:00 Courtney Mendes [facility] CBC WITH DIFF 2021-11-22 00:58:00 Jennifer Olivera [facility] PROTHROMBIN TIME / INR 2021-11-22 00:58:00 Jennifer Olivera [facility] ACTIVATED PARTIAL 2021-11-22 00:58:00 Jennifer Olivera [facility] THRMPLAS [facility] N-TERMINAL PRO-BNP 2021-11-22 00:58:00 Courtney Mendes [facility] LACTIC ACID WHOLE BLOOD 2021-11-22 00:58:00 Jennifer Olivera [facility] 2021-11-21 05:01:00 Doctor Unassigned, No [facility] [place] [facility] HOSPITAL ADM - MIS 2021-11-21 05:01:00 Doctor Unassigned, No Un [facility] HOSPITAL ADMISSION 2021-11-21 05:01:00 Doctor Unassigned, No Uni [facility] EMERGENCY DEPARTMENT 2021-11-21 05:01:00 Doctor Unassigned, No [facility] [place] DOCUM[facility] HOSPITAL ADM - [facility] 2021-11-21 05:01:00 Doctor Unassigned, No [facility] Name Medical Branch Spinal puncture, lumbar, 2021-10-24 20:30:00 Tony Gomez diagnostic; with fluoroscopic or CT guidance MAGNESIUM 2021-10-16 04:12:00 [facility] COMP. METABOLIC PANEL 2021-10-16 04:12:00 [facility] ([id number]) [facility] CBC WITH DIFF 2021-10-16 04:12:00 [facility] CT HEAD WO CONTRAST 2021-09-29 00:15:29 Roger Neff [facility] URINALYSIS 2021-09-28 23:53:00 Roger Neff Cici [facility] COMP. METABOLIC PANEL 2021-09-28 23:52:00 Roger Neff [facility] ([id number]) [facility] CBC WITH DIFF 2021-09-28 23:52:00 Roger Neff Cici [facility] XR CHEST 1 VW 2021-08-07 03:03:32 Courtney Mendes [facility] COMP. METABOLIC PANEL 2021-08-06 11:57:00 [facility] ([id number]) [facility] CBC WITH DIFF 2021-08-06 11:57:00 [facility] BASIC METABOLIC PANEL 2021-08-04 12:10:00 [facility] (NA, K, CL, CO2, GLUCOSE, Medica l Branch BUN, CREATININE, CA) CBC WITH DIFF 2021-08-04 12:09[facility] 2021-08-04 00:40:00 Hanh Gunter [facility] URINE CULTURE 2021-08-04 00:40:00 Hanh Gunter [facility] FECES CULTURE 2021-08-03 14:58:00 Kosta [facility] OCCULT (GUAIAC) BLOOD 2021-08-03 14:58:00 Kaylee Argueta [facility] CLOSTRIDIUM DIFFICILE 2021-08-03 14:58:00 Kosta [facility] TOXIN [facility] FECAL PATHOGENS BY PCR 2021-08-03 14:58:00 Kaylee Argueta [facility] URINE DRUG (IMMUNOASSAY) 2021-08-03 10:11:00 Kaylee Argueta [facility] DRUG Medical [facility] SCREEN COVID-19 (ID NOW RAPID 2021-08-03 07:33:00 Carmelita Serna [facility] TESTING) Medical Branch LAB ONLY COVID 2021-08-03 07:33:00 Carmelita Serna [facility] INTERPRETATION [facility] COMP. METABOLIC PANEL 2021-08-03 06:18:00 Carmelita Serna [facility] ([id number]) [facility] CBC WITH DIFF 2021-08-03 05:40:00 Carmelita Serna [facility] URINALYSIS 2021-08-01 01:43:00 Stephanie Balderrama [facility] LIPASE 2021-08-01 01:40:00 Stephanie Balderrama [facility] COMP. METABOLIC PANEL 2021-08-01 01:40:00 Stephanie Balderrama [facility] ([id number]) [facility] CBC WITH DIFF 2021-08-01 01:38:00 Stephanie Balderrama [facility] XR CHEST 1 VW 2021-07-31 23:40:19 Stephanie Balderrama [facility] ASSIGNMENT OF BENEFITS 2021-07-31 22:05:40 Doctor Unassigned, No [facility] NOTICE OF PRIVACY 2021-07-31 22:04:58 Doctor Unassigned, No [facility] PRACTICES Name [facility] CONSENT/REFUSAL FOR 2021-07-31 22:04:33 Doctor Unassigned, No [facility] DIAGNOSIS AND TREATMENT [facility] URINALYSIS 2021-07-29 23:09:00 Lynette Fonseca [facility] BLOOD CULTURE SCREEN 2021-07-29 23:04:00 Lynette Fonseca [facility] D-DIMER 2021-07-29 22:49:00 Lynette Fonseca [facility] COVID-19 (ID NOW RAPID 2021-07-29 22:48:00 Lynette Fonseca [facility] TESTING) Medical Branch COMP. METABOLIC PANEL 2021-07-29 22:17:00 Lynette Fonseca [facility] ([id number]) Medical Branch CBC WITH DIFF 2021-07-29 22:17:00 Lynette Fonseca [facility] XR CHEST 1 VW 2021-07-29 21:47:19 Lynette Fonseca [facility] COMP. METABOLIC PANEL 2021-06-07 22:20:00 Jonathan Sanford [facility] ([id number]) [facility] CBC WITH DIFF 2021-06-07 22:20:00 Jonathan Sanford [place] [facility] ABDOMEN PELVIS WO 2020-11-21 00:39:40 IbKimberly guzmanusho F Uni [facility] CONTRAST Medical Branch LIPASE 2020-11-21 00:06:00 Ibikundeion Folusho F [facility] COMP. METABOLIC PANEL 2020-11-21 00:06:00 Nicky Folusho F Un [facility] ([id number]) [facility] CBC WITH DIFF 2020-11-21 00:06:00 Ibikundeion Folusho F [facility] URINALYSIS 2020-11-21 00:00:00 Ibtreverundeion Folusho F [facility] COVID-19 (ID NOW RAPID 2020-11-21 00:00:00 Ibikunle Folusho [facility] Medical Branch 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 Plan of Care Planned Activity Planned Date Details Comments Source Future Scheduled 2022-07-[address] [facility]:00 (procedure) [code = [facility] 55002969] Future Scheduled 2022-07-[address] [facility] 00:00:00 (procedure) [code = [facility] 44704329] Future Scheduled 2022-07-[address] [facility] 00:00:00 (procedure) [code = [facility] 06423015] Future Scheduled 2022-07-[address] [facility] 00:00:00 (procedure) [code = [facility] 81148091] Future Scheduled 2022-03-15 INFLUENZA VACCINE (#1) C [...] [facility] 00:00:00 (Season Ended) [code = [facility] INFLUENZA VACCINE (Season Ended)] Future Scheduled 2020-07-[address] [facility] 00:00:00 (12+) [code = Medical Center DEPRESSION SCREENING (12+)] Future Scheduled 2019-10-[address]00 measurement Medical Center (procedure) [code = 78513089] Future Scheduled 2019-10-[address] [facility] 00[facility]00 measurement [facility] Center (procedure) [code = 66266744] Future Scheduled 2019-10-[address] [facility] 00[facility] Center (procedure) [code = 28230744] Future Scheduled 2019-10-[address] [facility] [facility] 00:[facility]:00 measurement Medical Center (procedure) [code = 27113893] Future Scheduled 2004 DTAP/TDAP/TD VACCINES CH I [...] Medical [address] VACCINE (1)] Future Scheduled [address] [facility] 00:00:00 Counseling and Medical Cente r Screening (12+) [code = Tobacco Cessation Counseling and Screening (12+)] Future Scheduled [address] [facility] 00:00:00 Counseling and Medical Cente r Screening (12+) [code = Tobacco Cessation Counseling and Screening (12+)] Future Scheduled [address] DIAB[address] EYE EXAM [facility] 00:00:00 [code = DIABETIC EYE Medical Center EXAM] Future Scheduled 1995 Urine screening for [facility] 00:00:00 protein (procedure) [facility] [code = 668952007] Future Scheduled 1995 DIABETIC EYE EXAM [facility] 00:00:00 [code = DIABETIC EYE Medical Center EXAM] Future Scheduled 1995 Urine screening for [facility] 00:00:00 protein (procedure) Medical Center [code = 634393233] Future Scheduled 1995 DIABETIC EYE EXAM [facility] 00:00:00 [code = DIABETIC EYE Medical Center EXAM] Future Scheduled 1995 Urine screening for [facility] 00:00:00 protein (procedure) Medical Center [code = 512237198] Future Scheduled 1995 DIABETIC EYE EXAM [facility] 00:00:00 [code = DIABETIC EYE Medical Center EXAM] Future Scheduled 1995 Urine screening for [facility] Test 00:00:00 protein (procedure) Medical Center [code = 230479192] Future Scheduled [address] [...] Date/Time Type Type Clinicians Facility Department ID 2022-06-[address] [facility] [id number] [place] 10:51:49 1212 [facility] 2021-10-[address] [facility] [id number] [place] 08:22:27 0411 [facility] 2021-10-[address] [facility] [id number] [place] 11:10:01 0328 [facility] 2022-10-31 2022-10-31 Outpatient R YUDI HOLLOWAY [facility] [id number] Univers 13:00:00 13:00:00 YUDI HOLLOWAY [facility] 2022-07-05 2022-07-05 Outpatient R STORM [facility] [id number] Univers 11:30:00 11:30:00 [facility] 2022-06-25 2022-06-25 Outpatient R YUDI HOLLOWAY [facility] [id number] Univers 13:00:00 13:39:07 YUDI HOLLOWAY [facility] 2022-06-25 2022-06-25 Windows Application Administrator Lab, Ang - Db [facility] 1.2.840.1 [id number] Univers 12:45:00 13:00:00 Visit Yudi Holloway [facility] 350.1.13.10 it y of [place] 4.2.7.2.686 Tim as VICENTA?BLEA [phone] [address] MEDICAL OFFICE BUILDING 2022-05-20 2022-05-21 Outpatient X GEO [facility] [place] [id number] Univers 16:26:00 17:36:00 NEGAR [facility] 2022-05-20 2022-05-21 Emergency Lynette Fonseca [facility] 1.2.840 .114 [id number] Univers 16:26:00 17:36:00 Negar Guardado 350.1.13.10 [facility] [place] [id number] [address] 2022-05-14 2022-05-14 Emergency X JAMAL [facility] ERT [id number] Univers 20:12:00 22:15:00 STEPHANIE ity [facility] 2022-05-14 2022-05-14 Emergency Cacace, [facility] 1.2.883.080 [id number] Univers 20:12:00 22:15:00 Stephanie DURAN 350.1.13.10 it[place] [id number] [place] [id number] [place] 2022-05-12 2022-05-12 Emergency [facility] ERT [id number] Univers 19:14:00 22:40:00 STANLI ity [facility] 2022-05-12 2022-05-12 Emergency [facility] 1.2.481.474 [id number] Univers 19:14:00 22:40:00 Carmelita DURAN 350.1.13.10 ity [facility] 4.2.7.2.[place] [id number] [place] 800904 [place] 2022-05-08 2022-05-08 Transition DEVANTE Zepeda 1.2.840.114 [id number] Univers 00:00:00 00:00:00 of Care Kamila GILLESPIE 350.1.13.10 [place] [id number] [facility] 403 Branch 2022-05-04 2022-05-06 Inpatient X KOSTA [facility] [place] [id number] Univers 00:19:00 12:45:00 KAYLEE saba [facility] 2022-05-04 2022-05-06 [facility] Diomedes Joseph [facility] 1.2.8 40.114 [id number] Univers 00:19:00 12:45:00 Encounter Kaylee ArguetaJAQUI 350.1.13.10 ity of [place].2.[place] [id number] [address] 2022-05-01 2022-05-01 Outpatient R BEVERLY [facility] [id number] Univers 08:00:00 08:00:00 SARAH BETH ity [facility] 2022-04-23 2022-04-23 Outpatient R DELMISRODOLFO [facility] [id number] Univers 08:00:00 08:00:00 SARAH BETH ity [facility] 2022-04-04 2022-04-04 Outpatient R YUDI HOLLOWAY [facility] [id number] Univers 14:00:00 14:00:00 YUDI HOLLOWAY ity [facility] 2022-04-02 2022-04-02 Outpatient R XUSharon [facility] [id number] Univers 08:30:00 08:30:00 SARAH BETH ity [facility] 2022-03-12 2022-03-12 Outpatient R BEVERLY [facility] [id number] Univers 08:00:00 08:00:00 SARAH BETH ity [facility] 2022-03-02 2022-03-02 Outpatient R [facility] [id number] Univers 11:30:00 11:30:00 SARAH BETH ity [facility] 2022-03-01 2022-03-01 Telephone ORION Golden 1.2.840.114 [id number] Univers 00:00:00 00:00:00 Vesta KING 350.1.13.10 i ty of HOSPITAL 4.2.7.2.686 Tim as [id number] [facility] 025 Branch 2022-03-01 2022-03-01 Telephone Renetta [facility] 1.2.957.757 [id number] Univers 00:00:00 00:00:00 Concetta NAVAPEC 350.1.13.10 ity of [place]2.686 [place] [id number] [facility] AND [place] 389 Branch [facility] 2022-02-26 2022-02-26 Transition DEVANTE Alvarado 1.2.840.114 [id number] Univers 00:00:00 00:00:00 of Care Kristie GILLESPIE 350.1.13.10 i [place] [id number] [facility] 403 Branch 2022-02-14 2022-02-23 Inpatient VICTORINO HORVATH [facility] [id number] Univers 22:57:00 15:56:00 ity of [facility] 2022-02-14 2022-02-23 Hospital Vic McdonaldNIE 1.2.840. 114 [id number] Univers 22:57:00 15:56:00 Encounter Royer Brooke CHRISTINE 350.1 .13.10 ity of [facility] Bret [facility] 4.2.7.2.686 [facility] Italogabbi G [id number] Medical [place] LeisenringVictorino 095 Branch 2022-02-20 2022-02-20 Anesthesia Heide Abraham 1.2.84 0.114 [id number] Univers 11:25:00 12:55:00 Event Huy Singh 350.1.13.10 ity of HOSPITAL 4.2.7.2.686 Tim as [id number] [facility] 103 Branch 2022-02-20 2022-02-20 Surgery IVAN Paul 1.2.221.609 [id number] Univers 10:12:00 11:55:00 Sarah Beth CHRISTINE 350.1.13.10 ity of [facility] 4.2.7.2.686 Tim as [id number] [facility] 103 Branch 2022-02-14 2022-02-14 Travel 1.2.840.1 1.2.833.049 [id number] Univers 00:00:00 00:00:00 55120.1.1 350.1.13.10 ity of 3.104.2.7 4.[place].3.698 [place] .3.788511 084.8 Medica l .8 Branch 2022-02-12 2022-02-12 Transition Zepeda, 1.2.840.6 [id number] Univers 00:00:00 00:00:00 of Care Kamial 24961.1.1 i ty of 3.104.2.7 [place] .3.144343 Medica l .8 Branch 2022-02-06 2022-02-10 Inpatient X CATHLEEN [facility] [id number] Univers 18:31:00 18:27:00 KENDALL ity of [facility] 2022-02-06 2022-02-10 [facility] Carlene Alcantara 1.2.840.1 [id number] Univers 18:31:00 18:27:00 Encounter Kaylee Argueta 06354.1.1 ity of [place] 3.104.2.7 [place] .3.337361 Medica l .8 [place] 2022-02-07 2022-02-07 Outpatient Damaso [facility] [id number] Univers 13:00:00 13:00:00 SHAHBAZ saba o f [facility] 2022-02-06 2022-02-06 Travel 1.2.840.1 1.2.271.692 [id number] Univers 00:00:00 00:00:00 60581.1.1 350.1.13.10 ity of 3.104.2.7 4.[place]7.3.698 [place] .3.857737 084.8 Medica l .8 [place] 2022-01-26 2022-01-26 Emergency X SINGER [facility] ERT [id number] Univers 17:06:00 23:29:00 JONATHAN ity [facility] 2022-01-26 2022-01-26 Emergency Randall Sands 1.2.840.1 [id number] Univers 17:06:00 23:29:00 Jonathan Sanford 95583.1.1 ity of 3.104.2.7 [place] .3.616645 Medica l .8 [place] 2022-01-26 2022-01-26 Travel 1.2.840.1 1.2.980.692 [id number] Univers 00:00:00 00:00:00 10975.1.1 350.1.13.10 ity of 3.104.2.7 4.[place]7.3.698 [place] .3.402511 084.8 Medica l .8 [place] 2022-01-19 2022-01-19 Outpatient Damaso [facility] [id number] Univers 14:00:00 14:00:00 SHAHBAZ saba o f [facility] 2022-01-17 2022-01-17 [facility] [id number] Univers 04:52:00 08:20:00 JENNIFER saba of [facility] 2022-01-17 2022-01-17 Emergency Jarod, 1.2.840.3 [id number] Univers 04:52:00 08:20:00 Jennifer 62780.1.1 ity of 3.104.2.7 [place] .3.686111 Medica l .8 [place] 2022-01-17 2022-01-17 Travel 1.2.840.1 1.2.867.116 [id number] Univers 00:00:00 00:00:00 86597.1.1 350.1.13.10 ity of 3.104.2.7 4.[place].7.3.698 [place] .3.952894 084.8 Medica l .8 [place] 2022-01-16 2022-01-16 Transition Duane, 1.2.840.0 [id number] Univers 00:00:00 00:00:00 of Care Kamila 91104.1.1 i ty of 3.104.2.7 [place] .3.230041 Medica l .8 [place] 2022-01-09 2022-01-12 Inpatient [place], [place] [id number] Univers 20:31:00 21:18:00 COMPA saba of [facility] 2022-01-09 2022-01-12 [facility] Olivera Jennifer 1.2.840.1 [id number] Univers 20:31:00 21:18:00 Encounter Dontae Talley 17576.1.1 ity of [place] 3.104.2.7 [place] .3.117926 Medica l .8 [place] 2022-01-10 2022-01-10 Transition Duane, 1.2.840.7 [id number] Univers 00:00:00 00:00:00 of Care Kamila 39821.1.1 i ty of 3.104.2.7 [place] .3.222249 Medica l .8 [place] 2022-01-09 2022-01-09 Travel 1.2.840.1 1.2.710.830 [id number] Univers 00:00:00 00:00:00 91259.1.1 350.1.13.10 ity of 3.104.2.7 4.[place].7.3.698 [place] .3.232549 084.8 Medica l .8 [place] 2022-01-08 2022-01-08 Transition Zepeda, 1.2.840.5 [id number] Univers 00:00:00 00:00:00 of Care Kamila 75438.1.1 i ty of 3.104.2.7 [place] .3.127393 Medica l .8 [place] 2022-01-04 2022-01-06 Inpatient X GEO [facility] [id number] Univers 22:21:00 16:16:00 NEGAR saba [facility] 2022-01-04 2022-01-06 [facility] Jhon Vadim Andrew 1.2.840.7 [id number] Univers 22:21:00 16:16:00 Encounter Negar Guardado 59522.1.1 ity of 3.104.2.7 [place] .3.188564 Medica l .8 [place] 2022-01-04 2022-01-04 Travel 1.2.840.1 1.2.440.758 [id number] Univers 00:00:00 00:00:00 83997.1.1 350.1.13.10 ity of 3.104.2.7 4.[place].7.3.698 [place] .3.079663 084.8 Medica l .8 [place] 2021-12-19 2021-12-22 [facility] [id number] Univers 18:25:00 19:30:00 KAYLEE saba [facility] 2021-12-19 2021-12-22 Emergency Bettykelly Mario 1.2.840.6 [id number] Univers 18:25:00 19:30:00 Kaylee Argueta 94605.1.1 ity of 3.104.2.7 [place] .3.003439 Medica l .8 [place] 2021-12-20 2021-12-20 Travel 1.2.840.1 1.2.417.150 [id number] Univers 00:00:00 00:00:00 05188.1.1 350.1.13.10 ity of 3.104.2.7 4.2.7.3.698 [place] .3.114929 084.8 Medica l .8 [place] 2021-12-19 2021-12-19 Travel 1.2.840.1 1.2.508.002 [id number] Univers 00:00:00 00:00:00 25757.1.1 350.1.13.10 ity of 3.104.2.7 4.2.7.3.698 [place] .3.147472 084.8 Medica l .8 Branch 2021-12-19 2021-12-19 Transition Alvarado, 1.2.840.6 [id number] Univers 00:00:00 00:00:00 of Care Kristie M 42689.1.1 ity of 3.104.2.7 [place] .3.533709 Medica l .8 Branch 2021-12-14 2021-12-18 Inpatient X SHAIKH [facility] [id number] Univers 20:53:00 18:25:00 KIRIT atkins [facility] 2021-12-14 2021-12-18 [facility] Jennifer Olivera 1.2.840.1 [id number] Univers 20:53:00 18:25:00 Encounter Vito Mckeon 60228.1.1 ity of [place] shultzi 3.104.2.7 [place] Daily Burger H .3.156997 [facility] Kirit Lara .8 Branch 2021-12-14 2021-12-14 Travel 1.2.840.1 1.2.924.763 [id number] Univers 00:00:00 00:00:00 62513.1.1 350.1.13.10 ity of 3.104.2.7 4.[place]7.3.698 [place] .3.835972 084.8 Medica l .8 [place] 2021-11-29 2021-11-29 Transition Zepeda, 1.2.840.9 [id number] Univers 00:00:00 00:00:00 of Care Kamila 38500.1.1 i ty of 3.104.2.7 [place] .3.876744 Medica l .8 [place] 2021-11-21 2021-11-28 Inpatient X YOLIS [facility] [id number] Univers 19:10:00 17:32:00 ADNAN ity of [facility] 2021-11-21 2021-11-28 Hospital Jennifer Olivera 1.2.840.1 [id number] Univers 19:10:00 17:32:00 Encounter Courtney Mendes 57034.1.1 ity of 3.104.2.7 [place] .3.100262 Medica l .8 [place] 2021-11-21 2021-11-21 Travel 1.2.840.1 1.2.353.644 [id number] Univers 00:00:00 00:00:00 25100.1.1 350.1.13.10 ity of 3.104.2.7 4.[place].3.698 [place] .3.192632 084.8 Medica l .8 [place] 2021-10-24 2021-10-25 Observatio nullFlavo [facility] 5510 [id number] Memoria 12:00:00 22:50:00 fidelina Gomez [address] [place] [address] 2021-10-24 2021-10-25 Observatio nullFlavo [facility] 5510 [id number] Memoria 12:00:00 22:50:00 fidelina Gomez [address] [place] [address] 2021-10-24 2021-10-25 Outpatient Humberto [facility] [id number] [id number] 07:00:00 17:50:00 Edilberto [facility] 2021-10-24 2021-10-25 Outpatient U HUMBERTO [facility] 2097 [facility] 07:00:00 17:50:00 EDILBERTO 2021-10-20 2021-10-20 Outpatient Humberto, [facility] [id number] [id number] 18:14:00 18:14:00 Edilberto Frankel 2021-10-15 2021-10-16 Emergency X [facility] ERT [id number] Univers 22:45:00 01:52:00 JONATHAN nathaniellizet [facility] 2021-10-15 2021-10-16 Emergency Singer [facility] 1.2.319.385 [id number] Univers 22:45:00 01:52:00 Jonathan DURAN 350.1.13.10 i [facility] 4.2.7.2.686 [facility] [id number] [address] 2021-10-06 2021-10-10 Inpatient nullFlavo [facility] [id number] Memoria 05:12:00 15:30:[address] 2021-10-06 2021-10-10 Inpatient [facility] [id number] Memoria 05:12:00 15:30:[address] 2021-10-06 2021-10-10 Outpatient Danita, [facility] [id number] 00:12:00 10:30:00 Josemanuel Silverio Chan 2021-10-06 2021-10-06 Emergency [facility] [id number] Memoria 02:51:00 02:51:[address] 2021-10-06 2021-10-06 Emergency [facility] 73600 [id number] Memoria 02:51:00 02:51:[address] 2021-10-06 2021-10-06 Outpatient Danita, [facility] [id number] 00:12:00 00:12:00 Josemanuel Silverio Kenneth-Yudi 2021-10-05 2021-10-05 Outpatient Danita, [facility] [id number] 620 21:51:00 21:51:00 Josemanuel Darek Kenneth-Yudi 2021-09-28 2021-09-28 Emergency X Roger NEFF [facility] ERT [id number] Univers 18:08:00 22:51:[address] [facility] 2021-09-28 2021-09-28 Emergency Tawanda, Roger [facility] 1.2.840.114 [id number] Univers 18:08:00 22:51:00 Cici DURAN 350.1.13.10 i ty [facility] 4.2.7.2.686 [facility] [id number] [facility] 084 Branch 2021-08-09 2021-08-09 Transition PHILLY ZepedaFidelina 1.2.840.114 [id number] Univers 00:00:00 00:00:00 of Care Kamila GILLESPIE 350.1.13.10 ity of [place] 4.2.7.2.686 [facility] [id number] [facility] 403 Branch 2021-08-02 2021-08-08 [facility] [id number] Univers 19:07:00 19:39:00 CARMELITA [facility] 2021-08-02 2021-08-08 [facility] 1.2.840. 114 [id number] Univers 19:07:00 19:39:00 Encounter Kaylee Argueta FIDEL 350.1.13.10 ity of [place] 4.2.7.2.686 [facility] [id number] [address] 2021-07-31 2021-07-31 [facility] [id number] Univers 14:41:00 22:07:00 STEPHANIE saba [facility] 2021-07-31 2021-07-31 Emergency [facility] 1.2.649.991 [id number] Univers 14:41:00 22:07:00 Stephanie DURAN 350.1.13.10 ity of [place] 4.2.7.2.686 [facility] [id number] [address] 2021-07-29 2021-07-29 Emergency [facility] [id number] Univers 14:49:00 21:33:00 LYNETTE saba [facility] 2021-07-29 2021-07-29 Emergency [facility] 1.2.296.195 [id number] [id number] Univers 14:49:00 21:33:00 Lynette DURAN 350.1.13.10 ity of [facility] 4.2.7.2.686 [facility] [id number] [address] 2021-07-11 2021-07-11 Laboratory Only, Ang Db Test [facility] 1.2.8 40.114 [id number] Univers 18:00:00 18:15:00 Only ToñoAracelis [facility] 350.1.13.10 ity of [place] 4.2.7.2.686 Tim as VICENTA?BLEA [id number] [address] MEDICAL OFFICE BUILDING 2021-07-11 2021-07-11 Outpatient R TOÑO [facility] [id number] Univers 18:00:00 18:00:[address] [facility] 2021-06-07 2021-06-07 Emergency X SANFORD, [facility] ERT [id number] Univers 15:54:00 18:34:[address] [facility] 2021-06-07 2021-06-07 Emergency Snaford, [facility] 1.2.267.842 [id number] Univers 15:54:00 18:34:00 Jonathan RICHARDSJAQUI 350.1.13.10 i ty of [facility] 4.2.7.2.686 [facility] [id number] [address] 2020-11-20 2020-11-20 [facility] 1.2.840.114 [id number] Univers 18:22:00 22:21:00 Madonna Cassandra Fidel 350.1.13.10 ity of [place] 4.2.7.2.686 [facility] [id number] [address] 2020-11-20 2020-11-20 Emergency [facility] 1.2.840.114 [id number] 18:22:00 22:21:00 Madonna Cassandra Fidel 350.1.13.10 [place] 4.2.7.2.686 [place] [id number] [facility] 2020-11-20 2020-11-20 Emergency X NICKY, [facility] ERT [id number] Univers 18:22:00 18:22:00 FOLAYESHAO [facility] 2019-03-02 2019-03-04 Phone nullFlavo MNA [id number] Memoria 16:11:26 04:59:59 Message r Neurosurger 08 l y [facility] 2019-03-02 2019-03-04 Phone nullFlavo MNA [id number] Memoria 16:11:26 04:59:59 Message r Neurosurger 08 l y [facility] 2019-03-02 2019-03-03 Outpatient MHMISCHER MHMISCHER [id number] 11:11:26 23:59:59 08 2019-02-10 2019-02-12 Phone nullFlavo MNA [id number] Memoria 16:16:47 04:59:59 Message r Neurosurger 07 l y [facility] 2019-02-10 2019-02-12 Phone nullFlavo MNA [id number] Memoria 16:16:47 04:59:59 Message r Neurosurger 07 l y [facility] 2019-02-10 2019-02-11 Outpatient MHMISCHER MISCHER [id number] 11:16:47 23:59:59 07 2019-01-26 2019-01-28 Phone nullFlavo MNA [id number] Memoria 15:52:03 04:59:59 Message r Neurosurger 06 l y [facility] 2019-01-26 2019-01-28 Phone nullFlavo MNA [id number] Memoria 15:52:03 04:59:59 Message r Neurosurger 06 l y [facility] 2019-01-26 2019-01-27 Outpatient MHMISCHER MISCHER [id number] 10:52:03 23:59:59 2019-01-01 2019-01-03 Phone nullFlavo MNA [id number] Memoria 18:55:03 04:59:59 Message r Neurosurger 05 l y [facility] 2019-01-01 2019-01-03 Phone nullFlavo MNA [id number] 55 Memoria 18:55:03 04:59:59 Message r Neurosurger 05 l y [facility] 2019-01-01 2019-01-02 Outpatient MHMISCHER MHMISCHER [id number] 13:55:03 23:59:59 05 2018-05-22 2018-05-22 Emergency [facility] [id number] Memoria 10:12:00 18:24:00 r [place] 12 [facility] 2018-05-22 2018-05-22 Emergency [facility] [id number] Memoria 10:12:00 18:24:[address] 2018-05-22 2018-05-22 Outpatient Constantinecoleglendy [facility] 5510 [id number] 04:12:00 12:24:00 Zahra Ca 2017-11-14 2017-11-19 Inpatient [facility] [id number] Memoria 22:40:00 17:28:00 r [place] 23 [facility] 2017-11-14 2017-11-19 Inpatient [facility] [id number] Memoria 22:40:00 17:28:[address] 2017-11-14 2017-11-19 Outpatient Ruth Quesada [facility] [id number] [id number] 17:40:00 12:28:00 Percy 23 Results Test Description Test Time Test Comments Results Result Comments Source POCT GLUCOSE (AUTOMATED) 2022-05-21 23:04:10 Test Item Value Reference Range Interpretation Comme nts POCT GLU (test code = 8956911883) 142 mg/dL 70-110 H Lab Interpretation (test code = 00079-5) Abnormal General acute hospital GLUCOSE (AUTOMATED)2022-05-21 18:07:54 Test Item Value Reference Range Interpretation Comments POCT GLU (test code = 3885821020) 198 mg/dL 70-110 H Lab Interpretation (test code = Abnormal 79548-6) General acute hospital GLUCOSE (AUTOMATED)2022-05-21 13:54:10 Test Item Value Reference Range Interpretation Comments POCT GLU (test code = 7572772497) 141 mg/dL 70-110 H Lab Interpretation (test code = Abnormal 15331-9) General acute hospital GLUCOSE (AUTOMATED)2022-05-21 02:47:37 Test Item Value Reference Range Interpretation Comments POCT GLU (test code = 5768412780) 150 mg/dL 70-110 H Lab Interpretation (test code = Abnormal 32714-3) [facility]. METABOLIC PANEL (21231)2022-05-20 23:49:17 Test Item Value Reference Range Interpretation Comments NA (test code = 139 mmol/L 135-145 7316909561) K (test code = 4.5 mmol/L 3.5-5.0 3250719819) CL (test code = 104 mmol/L 98-108 9278834686) CO2 TOTAL (test code = 25 mmol/L 23-31 1540932236) AGAP (test code = 2-16 8722547543) BUN (test code = 13 mg/dL 7-23 7863607567) GLUCOSE (test code = 228 mg/dL 70-110 H 1571596977) CREATININE (test code = 0.56 mg/dL 0.60-1.25 L 3549980061) TOTAL BILI (test code = 0.6 mg/dL 0.1-1.9 3471786703) CALCIUM (test code = 9.7 mg/dL 8.6-10.6 1215664250) T PROTEIN (test code = 7.8 g/dL 6.3-8.2 3205584205) ALBUMIN (test code = 4.4 g/dL 3.5-5.0 6045752701) ALK PHOS (test code = 132 U/L 34-122 H 1256848287) ALTv (test code = 31 U/L 5-50 1742-6) AST(SGOT) (test code = 20 U/L 13-40 3898561398) eGFR (test code = mL/min/1.73m2 0451822909) ARPITA (test code = ARPITA) Association of [...] tests). Lab Interpretation Abnormal (test code = 04061-6) [facility] WITH [id number] 23:45:35 Test Item Value Reference Range Interpretation Comments WBC (test code = See_Comment [Automated 7327-2) message] The sy stem which generated this result transmitted reference range : 4.20 - 10.70 10*3/?L. The reference range was not used to interpret this result as normal/abnormal . RBC (test code = See_Comment H [Automated 212-8) message] The sy stem which generated this [...] RDW-SD (test code = 45.1 fL 38.5-51.6 63175-1) RDW-CV (test code = 14.9 % 12.1-15.4 788-0) PLT (test code = See_Comment [Automated 907-3) message] The sy stem which generated this result transmitted reference range : 150 - 328 10*3/ ?L. The reference r boubacar was not used to interpret this result as normal/abnormal . MPV (test code = 10.9 fL 9.8-13.0 16786-2) IPF % (test code = 9.9 % 1.2-10.7 Platelet count 6904801705) measured by fluorescence method. NRBC/100 WBC (test See_Comment [Automat ed code = 2511516563) message] The system which generated this result transmitted reference range : 0.0 - 10.0 /100 WBCs. The refer ence range was not u sed to interpret th is result as normal/abnormal . NRBC x10^3 (test code See_Comment [Auto mated = 2016485061) message] The s ystem which generated this result transmitted reference range : 10*3/?L. The reference range was not used to interpret this result as normal/abnormal . GRAN MAT (NEUT) % 65.4 % (test code = 770-8) IMM GRAN % (test code 0.60 % = 5594205302) LYMPH % (test code = 23.1 % 736-9) MONO % (test code = 7.9 % 5905-5) EOS % (test code = 2.6 % 713-8) BASO % (test code = 0.4 % 706-2) GRAN MAT x10^3(ANC) 6.34 10*3/uL 1.99-6.95 (test code = 6116136094) IMM GRAN x10^3 (test 0.06 10*3/uL 0.00-0.06 code = 4087914852) LYMPH x10^3 (test code 2.24 10*3/uL 1.09-3.23 = 731-0) MONO x10^3 (test code 0.77 10*3/uL 0.36-1.02 = 742-7) EOS x10^3 (test code = 0.25 10*3/uL 0.06-0.53 711-2) BASO x10^3 (test code 0.04 10*3/uL 0.01-0.09 = 704-7) Lab Interpretation Abnormal (test code = 86599-4) [facility] [id number] 23:16:59 Test Item Value Reference Range Interpretation Comments LACTIC ACID (test code = 3.00 mmol/L 0.50-2.20 H 0115610205) Lab Interpretation (test code = Abnormal 44931-0) [facility] WITH [id number] 01:28:46 Test Item Value Reference Range Interpretation [...] RDW-SD (test code = 47.6 fL 38.5-51.6 97611-6) RDW-CV (test code = 15.4 % 12.1-15.4 788-0) PLT (test code = See_Comment L [Automated 777-3) message] The sy stem which generated this result transmitted reference range : 150 - 328 10*3/ ?L. The reference r boubacar was not used to interpret this result as normal/abnormal . MPV (test code = 10.6 fL 9.8-13.0 06542-1) NRBC/100 WBC (test See_Comment [Automat ed code = 2183469202) message] The system which generated this result transmitted reference range : 0.0 - 10.0 /100 WBCs. The refer ence range was not u sed to interpret th is result as normal/abnormal . NRBC x10^3 (test code See_Comment [Auto mated = 5140566701) message] The s ystem which generated this result transmitted reference range : 10*3/?L. The reference range was not used to interpret this result as normal/abnormal . GRAN MAT (NEUT) % 70.8 % (test code = 770-8) IMM GRAN % (test code 0.50 % = 2035135880) LYMPH % (test code = 20.4 % 736-9) MONO % (test code = 5.9 % 5905-5) EOS % (test code = 2.0 % 713-8) BASO % (test code = 0.4 % 706-2) GRAN MAT x10^3(ANC) 7.23 10*3/uL 1.99-6.95 H (test code = 9773620542) IMM GRAN x10^3 (test 0.05 10*3/uL 0.00-0.06 code = 7958421645) LYMPH x10^3 (test code 2.08 10*3/uL 1.09-3.23 = 731-0) MONO x10^3 (test code 0.60 10*3/uL 0.36-1.02 = 742-7) EOS x10^3 (test code = 0.20 10*3/uL 0.06-0.53 711-2) BASO x10^3 (test code 0.04 10*3/uL 0.01-0.09 = 704-7) Lab Interpretation Abnormal (test code = 55960-0) [facility]. METABOLIC PANEL (20104)2022-05-13 01:23:44 Test Item Value Reference Range Interpretation Comments NA (test code = 141 mmol/L 135-145 3160024953) K (test code = 4.7 mmol/L 3.5-5.0 5007746491) CL (test code = 107 mmol/L 98-108 2071056748) CO2 TOTAL (test code = 23 mmol/L 23-31 9563425498) AGAP (test code = 2-16 1775204333) BUN (test code = 16 mg/dL 7-23 7618112210) GLUCOSE (test code = 144 mg/dL 70-110 H 0675527735) CREATININE (test code = 0.54 mg/dL 0.60-1.25 L 6533426329) TOTAL BILI (test code = 0.6 mg/dL 0.1-1.7 9724702580) CALCIUM (test code = 9.5 mg/dL 8.6-10.6 4949086860) T PROTEIN (test code = 7.7 g/dL 6.3-8.2 1252994193) ALBUMIN (test code = 4.4 g/dL 3.5-5.0 1900892207) ALK PHOS (test code = 101 U/L 34-122 2893794321) ALTv (test code = 28 U/L 5-50 1742-6) AST(SGOT) (test code = 20 U/L 13-40 4912473590) eGFR (test code = mL/min/1.73m2 1807704855) ARPITA (test code = ARPITA) Association of [...] tests). Lab Interpretation Abnormal (test code = 22064-3) [facility] 01:23:23 Test Item Value Reference Range Interpretation Comments LIPASE (test code = 5809799255) 99 U/L 0-220 Lab Interpretation (test code = Normal 89245-0) General acute hospital GLUCOSE (AUTOMATED)2022-05-06 13:16:26 Test Item Value Reference Range Interpretation Comments POCT GLU (test code = 7570343785) 162 mg/dL 70-110 H Lab Interpretation (test code = Abnormal 13682-6) General acute hospital GLUCOSE (AUTOMATED)2022-05-06 01:23:12 Test Item Value Reference Range Interpretation Comments POCT GLU (test code = 5233409944) 248 mg/dL 70-110 H Lab Interpretation (test code = Abnormal 27765-7) General acute hospital GLUCOSE (AUTOMATED)2022-05-05 21:32:18 Test Item Value Reference Range Interpretation Comments POCT GLU (test code = 0674237161) 239 mg/dL 70-110 H Lab Interpretation (test code = Abnormal 70027-2) General acute hospital GLUCOSE (AUTOMATED)2022-05-05 01:49:48 Test Item Value Reference Range Interpretation Comments POCT GLU (test code = 4953245865) 317 mg/dL 70-110 H Lab Interpretation (test code = Abnormal 21185-5) General acute hospital GLUCOSE (AUTOMATED)2022-05-04 21:38:03 Test Item Value Reference Range Interpretation Comments POCT GLU (test code = 4668342564) 139 mg/dL 70-110 H Lab Interpretation (test code = Abnormal 00230-8) [facility]22-[facility]04 16:14:31 Test Item Value Reference Range Interpretation Comments POCT GLU (test code = 9869803008) 164 mg/dL 70-110 H Lab Interpretation (test code = Abnormal 91370-6) General acute hospital GLUCOSE (AUTOMATED)2022-05-04 12:46:40 Test Item Value Reference Range Interpretation Comments POCT GLU (test code = 3312413618) 154 mg/dL 70-110 H Lab Interpretation (test code = Abnormal 33464-0) [facility] 06:39:52 Test Item Value Reference Range Interpretation Comments LIPASE (test code = 7103336621) 216 U/L 0-220 Lab Interpretation (test code = Normal 67080-4) [facility]. METABOLIC PANEL (20860)2022-05-04 06:39:52 Test Item Value Reference Range Interpretation Comments NA (test code = 139 mmol/L 135-145 8944472087) K (test code = 4.7 mmol/L 3.5-5 6336152349) CL (test code = 106 mmol/L 98-108 7573445600) CO2 TOTAL (test code = 20 mmol/L 23-31 L 3897266600) AGAP (test code = 2-16 4737098662) BUN (test code = 16 mg/dL 7-23 5187805750) GLUCOSE (test code = 224 mg/dL 70-110 H 8823792976) CREATININE (test code = 0.72 mg/dL 0.6-1.25 2741226960) TOTAL BILI (test code = 0.4 mg/dL 0.1-1.9 0758177730) CALCIUM (test code = 9.3 mg/dL 8.6-10.6 4446846356) T PROTEIN (test code = 7.2 g/dL 6.3-8.2 5756998529) ALBUMIN (test code = 4.1 g/dL 3.5-5 8104452135) ALK PHOS (test code = 118 U/L 34-122 4496121337) ALTv (test code = 46 U/L 5-50 1742-6) AST(SGOT) (test code = 18 U/L 13-40 0474246409) eGFR (test code = mL/min/1.73m2 7946866610) ARPITA (test code = ARPITA) Association of [...] tests). Lab Interpretation Abnormal (test code = 47142-3) [facility] WITH [id number] 06:28:46 Test Item Value Reference Range Interpretation Comments WBC (test code = See_Comment [Automated 1690-2) message] The sy stem which generated this result transmitted reference range : 4.20 - 10.70 10*3/?L. The reference range was not used to interpret this result as normal/abnormal . RBC (test code = See_Comment [Automated 643-8) message] The sy stem which generated this [...] RDW-SD (test code = 45.7 fL 38.5-51.6 31354-8) RDW-CV (test code = 14.8 % 12.1-15.4 788-0) PLT (test code = See_Comment H [Automated 777-3) message] The sy stem which generated this result transmitted reference range : 150 - 328 10*3/ ?L. The reference r boubacar was not used to interpret this result as normal/abnormal . MPV (test code = 11.0 fL 9.8-13 76103-4) NRBC/100 WBC (test See_Comment [Automat ed code = 5271242196) message] The system which generated this result transmitted reference range : 0.0 - 10.0 /100 WBCs. The refer ence range was not u sed to interpret th is result as normal/abnormal . NRBC x10^3 (test code See_Comment [Auto mated = 6659735969) message] The s ystem which generated this result transmitted reference range : 10*3/?L. The reference range was not used to interpret this result as normal/abnormal . GRAN MAT (NEUT) % 56.7 % (test code = 770-8) IMM GRAN % (test code 0.70 % = 5666569557) LYMPH % (test code = 31.5 % 736-9) MONO % (test code = 8.6 % 5905-5) EOS % (test code = 2.0 % 713-8) BASO % (test code = 0.5 % 706-2) GRAN MAT x10^3(ANC) 4.84 10*3/uL 1.99-6.95 (test code = 3245055444) IMM GRAN x10^3 (test 0.06 10*3/uL 0-0.06 code = 8567628890) LYMPH x10^3 (test code 2.69 10*3/uL 1.09-3.23 = 731-0) MONO x10^3 (test code 0.73 10*3/uL 0.36-1.02 = 742-7) EOS x10^3 (test code = 0.17 10*3/uL 0.06-0.53 711-2) BASO x10^3 (test code 0.04 10*3/uL 0.01-0.09 = 704-7) Lab Interpretation Abnormal (test code = 93162-9) [facility] CULTURE(AEROBIC/ANAEROBIC)2022-02-23 20:34:19 Test Item Value Reference Range Interpretation Comments TISSUE CULTURE (test No aerobic/anaerobic code = 93257-1) organisms isolated Gram stain (test code No PMNs or Mononuclear = 664-3) cells observed General acute hospital GLUCOSE (AUTOMATED)2022-02-23 18:36:41 Test Item Value Reference Range Interpretation Comments POCT GLU (test code = 2154119748) 162 mg/dL 70-110 H Lab Interpretation (test code = Abnormal 37428-7) General acute hospital GLUCOSE (AUTOMATED)2022-02-23 14:48:29 Test Item Value Reference Range Interpretation Comments POCT GLU (test code = 5176560180) 191 mg/dL 70-110 H Lab Interpretation (test code = Abnormal 89862-6) General acute hospital GLUCOSE (AUTOMATED)2022-02-23 10:56:47 Test Item Value Reference Range Interpretation Comments POCT GLU (test code = 8208461225) 242 mg/dL 70-110 H Lab Interpretation (test code = Abnormal 88553-7) General acute hospital GLUCOSE (AUTOMATED)2022-02-23 05:47:30 Test Item Value Reference Range Interpretation Comments POCT GLU (test code = 0792321786) 327 mg/dL 70-110 H Lab Interpretation (test code = Abnormal 28640-2) General acute hospital GLUCOSE (AUTOMATED)2022-02-23 02:18:34 Test Item Value Reference Range Interpretation Comments POCT GLU (test code = 7440123245) 309 mg/dL 70-110 H Lab Interpretation (test code = Abnormal 89661-3) General acute hospital GLUCOSE (AUTOMATED)2022-02-22 23:17:38 Test Item Value Reference Range Interpretation Comments POCT GLU (test code = 6647487678) 260 mg/dL 70-110 H Lab Interpretation (test code = Abnormal 53663-3) [facility] GLUCOSE (AUTOMATED)2022-02-22 18:33:41 Test Item Value Reference Range Interpretation Comments POCT GLU (test code = [id number]) 264 mg/dL 70-110 H Lab Interpretation (test code = Abnormal 67375-7) General acute hospital GLUCOSE (AUTOMATED)2022-02-22 15:02:50 Test Item Value Reference Range Interpretation Comments POCT GLU (test code = 9531782460) 219 mg/dL 70-110 H Lab Interpretation (test code = Abnormal 78747-7) [facility] METABOLIC PANEL (NA, K, CL, CO2, GLUCOSE, BUN, CREATININE, CA)2022-02-22 10:44:27 Test Item Value Reference Range Interpretation Comments NA (test code = 132 mmol/L 135-145 L 9543042262) K (test code = 4.4 mmol/L 3.5-5 3919783082) CL (test code = 103 mmol/L 98-108 7549003286) CO2 TOTAL (test code = 25 mmol/L 23-31 6309473852) AGAP (test code = 2-16 3434869399) BUN (test code = 15 mg/dL 7-23 0168146883) GLUCOSE (test code = 262 mg/dL 70-110 H 5054524304) CREATININE (test code = 0.52 mg/dL 0.6-1.25 L 1874601273) CALCIUM (test code = 8.3 mg/dL 8.6-10.6 L 5429124646) eGFR (test code = mL/min/1.73m2 9409621356) ARPITA (test code = ARPITA) Association of [...] tests). Lab Interpretation Abnormal (test code = 68723-4) [facility] WITH [id number] 10:22:05 Test Item Value Reference Range Interpretation [...] RDW-SD (test code = 49.8 fL 38.5-51.6 24525-9) RDW-CV (test code = 15.9 % 12.1-15.4 H 788-0) PLT (test code = See_Comment H [Automated 777-3) message] The sy stem which generated this result transmitted reference range : 150 - 328 10*3/ ?L. The reference r boubacar was not used to interpret this result as normal/abnormal . MPV (test code = 10.4 fL 9.8-13 97245-9) NRBC/100 WBC (test See_Comment [Automat ed code = 2449594444) message] The system which generated this result transmitted reference range : 0.0 - 10.0 /100 WBCs. The refer ence range was not u sed to interpret th is result as normal/abnormal . NRBC x10^3 (test code See_Comment [Auto mated = 0773688779) message] The s ystem which generated this result transmitted reference range : 10*3/?L. The reference range was not used to interpret this result as normal/abnormal . GRAN MAT (NEUT) % 59.8 % (test code = 770-8) IMM GRAN % (test code 1.20 % = 6162499139) LYMPH % (test code = 28.2 % 736-9) MONO % (test code = 8.4 % 5905-5) EOS % (test code = 2.2 % 713-8) BASO % (test code = 0.2 % 706-2) GRAN MAT x10^3(ANC) 5.34 10*3/uL 1.99-6.95 (test code = 0268041846) IMM GRAN x10^3 (test 0.11 10*3/uL 0-0.06 H code = 7182771286) LYMPH x10^3 (test code 2.52 10*3/uL 1.09-3.23 = 731-0) MONO x10^3 (test code 0.75 10*3/uL 0.36-1.02 = 742-7) EOS x10^3 (test code = 0.20 10*3/uL 0.06-0.53 711-2) BASO x10^3 (test code 0.01-0.09 = 704-7) Lab Interpretation Abnormal (test code = 93080-8) [facility] hospital GLUCOSE (AUTOMATED)2022-02-22 02:20:10 Test Item Value Reference Range Interpretation Comments POCT GLU (test code = 8671687917) 281 mg/dL 70-110 H Lab Interpretation (test code = Abnormal 82662-7) General acute hospital GLUCOSE (AUTOMATED)2022-02-21 22:27:37 Test Item Value Reference Range Interpretation Comments POCT GLU (test code = 6166064526) 187 mg/dL 70-110 H Lab Interpretation (test code = Abnormal 91509-6) General acute hospital GLUCOSE (AUTOMATED)2022-02-21 19:00:16 Test Item Value Reference Range Interpretation Comments POCT GLU (test code = 5481183985) 167 mg/dL 70-110 H Lab Interpretation (test code = Abnormal 49158-6) General acute hospital GLUCOSE (AUTOMATED)2022-02-21 19:00:16 Test Item Value Reference Range Interpretation Comments POCT GLU (test code = 9983888878) 167 mg/dL 70-110 H Lab Interpretation (test code = Abnormal 85414-9) General acute hospital GLUCOSE (AUTOMATED)2022-02-21 15:22:04 Test Item Value Reference Range Interpretation Comments POCT GLU (test code = 7730370610) 138 mg/dL 70-110 H Lab Interpretation (test code = Abnormal 03717-7) General acute hospital GLUCOSE (AUTOMATED)2022-02-21 15:22:04 Test Item Value Reference Range Interpretation Comments POCT GLU (test code = 6503391629) 138 mg/dL 70-110 H Lab Interpretation (test code = Abnormal 49795-0) General acute hospital GLUCOSE (AUTOMATED)2022-02-21 02:45:31 Test Item Value Reference Range Interpretation Comments POCT GLU (test code = 4288774040) 142 mg/dL 70-110 H Lab Interpretation (test code = Abnormal 57474-7) General acute hospital GLUCOSE (AUTOMATED)2022-02-21 02:45:31 Test Item Value Reference Range Interpretation Comments POCT GLU (test code = 3279551376) 142 mg/dL 70-110 H Lab Interpretation (test code = Abnormal 94561-0) General acute hospital GLUCOSE (AUTOMATED)2022-02-20 22:04:41 Test Item Value Reference Range Interpretation Comments POCT GLU (test code = 5443513948) 260 mg/dL 70-110 H Lab Interpretation (test code = Abnormal 50713-7) General acute hospital GLUCOSE (AUTOMATED)2022-02-20 22:04:41 Test Item Value Reference Range Interpretation Comments POCT GLU (test code = 9372314966) 260 mg/dL 70-110 H Lab Interpretation (test code = Abnormal 65411-4) [facility]35 Test Item Value Reference Range Interpretation Comments Blood Culture-Aerobic No organisms No growth Previo us (test code = 75132-3) isolated prelim inary verified result was Culture [...] Culture-Anaerobic isolated preliminar y (test code = 56747-6) verifi ed result was Culture In Progress [...] CDT Lab Interpretation Normal (test code = 42647-0) [facility] [id number] 21:01:35 Test Item Value Reference Range Interpretation Comments Blood Culture-Aerobic No organisms No growth Previo us (test code = 93640-8) isolated prelim inary verified result was Culture [...] Culture-Anaerobic isolated preliminar y (test code = 74615-0) verifi ed result was Culture In Progress [...] CDT Lab Interpretation Normal (test code = 75625-6) [facility] Culture - Peripheral Vein # 21:01:35 Test Item Value Reference Range Interpretation Comments Blood Culture-Aerobic No organisms No growth Previo us (test code = 36510-4) isolated prelim inary verified result was Culture [...] Culture-Anaerobic isolated preliminar y (test code = 08897-0) verifi ed result was Culture In Progress [...] CDT Lab Interpretation Normal (test code = 47574-3) [facility] Culture - Peripheral [id number] 21:01:35 Test Item Value Reference Range Interpretation Comments Blood Culture-Aerobic No organisms No growth Previo us (test code = 78258-7) isolated prelim inary verified result was Culture [...] Culture-Anaerobic isolated preliminar y (test code = 02702-1) verifi ed result was Culture In Progress [...] CDT Lab Interpretation Normal (test code = 43311-0) General acute hospital GLUCOSE (AUTOMATED)2022-02-20 14:13:49 Test Item Value Reference Range Interpretation Comments POCT GLU (test code = 8862393112) 176 mg/dL 70-110 H Lab Interpretation (test code = Abnormal 97925-2) [facility] GLUCOSE (AUTOMATED)2022-02-20 14:13:49 Test Item Value Reference Range Interpretation Comments POCT GLU (test code = 3974540212) 176 mg/dL 70-110 H Lab Interpretation (test code = Abnormal 13097-3) General acute hospital GLUCOSE (AUTOMATED)2022-02-20 02:30:54 Test Item Value Reference Range Interpretation Comments POCT GLU (test code = 0117587684) 113 mg/dL 70-110 H Lab Interpretation (test code = Abnormal 91087-5) General acute hospital GLUCOSE (AUTOMATED)2022-02-20 02:30:54 Test Item Value Reference Range Interpretation Comments POCT GLU (test code = 2780271276) 113 mg/dL 70-110 H Lab Interpretation (test code = Abnormal 96180-4) General acute hospital GLUCOSE (AUTOMATED)2022-02-19 23:41:12 Test Item Value Reference Range Interpretation Comments POCT GLU (test code = 1695984314) 135 mg/dL 70-110 H Lab Interpretation (test code = Abnormal 76586-6) General acute hospital GLUCOSE (AUTOMATED)2022-02-19 23:41:12 Test Item Value Reference Range Interpretation Comments POCT GLU (test code = 1735398141) 135 mg/dL 70-110 H Lab Interpretation (test code = Abnormal 78443-8) [facility] GLUCOSE (AUTOMATED)2022-02-19 17:13:18 Test Item Value Reference Range Interpretation Comments POCT GLU (test code = 9438521492) 238 mg/dL 70-110 H Lab Interpretation (test code = Abnormal 72186-5) General acute hospital GLUCOSE (AUTOMATED)2022-02-19 17:13:18 Test Item Value Reference Range Interpretation Comments POCT GLU (test code = 6224091371) 238 mg/dL 70-110 H Lab Interpretation (test code = Abnormal 62846-4) General acute hospital GLUCOSE (AUTOMATED)2022-02-19 17:13:18 Test Item Value Reference Range Interpretation Comments POCT GLU (test code = 1014908975) 238 mg/dL 70-110 H Lab Interpretation (test code = Abnormal 70732-8) [facility]-REACTIVE [id number] 16:50:53 Test Item Value Reference Range Interpretation Comments CRP (test code = 0.9 mg/dL See_Comment H [Automated message] 1753795206) The system [employer] generated this result transmit lester reference range : <=0.8. The refe rence range was not u sed to interpret th is result as normal/abnormal . Lab Interpretation (test Abnormal code = 58872-0) [facility]-REACTIVE [id number] 16:50:53 Test Item Value Reference Range Interpretation Comments CRP (test code = 0.9 mg/dL See_Comment H [Automated message] 9951844267) The system [employer] generated this result transmit lester reference range : <=0.8. The refe rence range was not u sed to interpret th is result as normal/abnormal . Lab Interpretation (test Abnormal code = 73072-3) [facility]-REACTIVE [id number] 16:50:53 Test Item Value Reference Range Interpretation Comments CRP (test code = 0.9 mg/dL See_Comment H [Automated message] 7756984588) The system [employer] generated this result transmit lester reference range : <=0.8. The refe rence range was not u sed to interpret th is result as normal/abnormal . Lab Interpretation (test Abnormal code = 57090-0) General acute hospital GLUCOSE (AUTOMATED)2022-02-19 15:55:49 Test Item Value Reference Range Interpretation Comments POCT GLU (test code = 7512116600) 209 mg/dL 70-110 H Lab Interpretation (test code = Abnormal 16477-0) General acute hospital GLUCOSE (AUTOMATED)2022-02-19 15:55:49 Test Item Value Reference Range Interpretation Comments POCT GLU (test code = 0515623434) 209 mg/dL 70-110 H Lab Interpretation (test code = Abnormal 07134-3) General acute hospital GLUCOSE (AUTOMATED)2022-02-19 00:58:44 Test Item Value Reference Range Interpretation Comments POCT GLU (test code = 7181584135) 300 mg/dL 70-110 H Lab Interpretation (test code = Abnormal 54054-4) General acute hospital GLUCOSE (AUTOMATED)2022-02-19 00:58:44 Test Item Value Reference Range Interpretation Comments POCT GLU (test code = 0995877246) 300 mg/dL 70-110 H Lab Interpretation (test code = Abnormal 66127-3) General acute hospital GLUCOSE (AUTOMATED)2022-02-18 21:28:03 Test Item Value Reference Range Interpretation Comments POCT GLU (test code = 2998604296) 119 mg/dL 70-110 H Lab Interpretation (test code = Abnormal 76206-0) General acute hospital GLUCOSE (AUTOMATED)2022-02-18 21:28:03 Test Item Value Reference Range Interpretation Comments POCT GLU (test code = 6242599253) 119 mg/dL 70-110 H Lab Interpretation (test code = Abnormal 19447-3) General acute hospital GLUCOSE (AUTOMATED)2022-02-18 16:51:05 Test Item Value Reference Range Interpretation Comments POCT GLU (test code = 8870998899) 275 mg/dL 70-110 H Lab Interpretation (test code = Abnormal 06314-4) General acute hospital GLUCOSE (AUTOMATED)2022-02-18 16:51:05 Test Item Value Reference Range Interpretation Comments POCT GLU (test code = 3213580471) 275 mg/dL 70-110 H Lab Interpretation (test code = Abnormal 52857-6) [facility] (NA, K, CL, CO2, GLUCOSE, BUN, CREATININE, CA)2022-02-18 15:51:39 Test Item Value Reference Range Interpretation Comments NA (test code = 136 mmol/L 135-145 3710657891) K (test code = 3.7 mmol/L 3.5-5 1459484535) CL (test code = 111 mmol/L 98-108 H 8826686232) CO2 TOTAL (test code = 21 mmol/L 23-31 L 0908984644) AGAP (test code = 2-16 2909425744) BUN (test code = 9 mg/dL 7-23 1537219065) GLUCOSE (test code = 278 mg/dL 70-110 H 1399414030) CREATININE (test code = 0.46 mg/dL 0.6-1.25 L 2789558991) CALCIUM (test code = 8.2 mg/dL 8.6-10.6 L 6106128454) eGFR (test code = mL/min/1.73m2 3955049687) ARPITA (test code = ARPITA) Association of [...] tests). Lab Interpretation Abnormal (test code = 76879-8) [facility] METABOLIC PANEL (NA, K, CL, CO2, GLUCOSE, BUN, CREATININE, CA)2022-02-18 15:51:39 Test Item Value Reference Range Interpretation Comments NA (test code = 136 mmol/L 135-145 0437063718) K (test code = 3.7 mmol/L 3.5-5 5902188238) CL (test code = 111 mmol/L 98-108 H 6689276106) CO2 TOTAL (test code = 21 mmol/L 23-31 L 8736426731) AGAP (test code = 2-16 8734513620) BUN (test code = 9 mg/dL 7-23 2295189618) GLUCOSE (test code = 278 mg/dL 70-110 H 7890654066) CREATININE (test code = 0.46 mg/dL 0.6-1.25 L 8714631893) CALCIUM (test code = 8.2 mg/dL 8.6-10.6 L 4758404781) eGFR (test code = mL/min/1.73m2 0627828191) ARPITA (test code = ARPITA) Association of [...] tests). Lab Interpretation Abnormal (test code = 67156-0) General acute hospital GLUCOSE (AUTOMATED)2022-02-18 12:36:29 Test Item Value Reference Range Interpretation Comments POCT GLU (test code = 0668152821) 276 mg/dL 70-110 H Lab Interpretation (test code = Abnormal 02980-5) [facility] 12:36:29 Test Item Value Reference Range Interpretation Comments POCT GLU (test code = 1178173447) 276 mg/dL 70-110 H Lab Interpretation (test code = Abnormal 11047-9) General acute hospital GLUCOSE (AUTOMATED)2022-02-18 01:29:51 Test Item Value Reference Range Interpretation Comments POCT GLU (test code = 4309027047) 289 mg/dL 70-110 H Lab Interpretation (test code = Abnormal 18214-0) General acute hospital GLUCOSE (AUTOMATED)2022-02-18 01:29:51 Test Item Value Reference Range Interpretation Comments POCT GLU (test code = 6184690497) 289 mg/dL 70-110 H Lab Interpretation (test code = Abnormal 89414-2) General acute hospital GLUCOSE (AUTOMATED)2022-02-17 21:24:38 Test Item Value Reference Range Interpretation Comments POCT GLU (test code = 7408151772) 173 mg/dL 70-110 H Lab Interpretation (test code = Abnormal 64869-1) General acute hospital GLUCOSE (AUTOMATED)2022-02-17 21:24:38 Test Item Value Reference Range Interpretation Comments POCT GLU (test code = 0833190342) 173 mg/dL 70-110 H Lab Interpretation (test code = Abnormal 45835-8) General acute hospital GLUCOSE (AUTOMATED)2022-02-17 16:50:49 Test Item Value Reference Range Interpretation Comments POCT GLU (test code = 5121543759) 279 mg/dL 70-110 H Lab Interpretation (test code = Abnormal 43724-7) [facility] 16:50:49 Test Item Value Reference Range Interpretation Comments POCT GLU (test code = 0637839901) 279 mg/dL 70-110 H Lab Interpretation (test code = Abnormal 50171-4) General acute hospital GLUCOSE (AUTOMATED)2022-02-17 13:31:23 Test Item Value Reference Range Interpretation Comments POCT GLU (test code = 6733382614) 281 mg/dL 70-110 H Lab Interpretation (test code = Abnormal 11585-9) [facility] 13:31:23 Test Item Value Reference Range Interpretation Comments POCT GLU (test code = 7605921309) 281 mg/dL 70-110 H Lab Interpretation (test code = Abnormal 75943-0) General acute hospital GLUCOSE (AUTOMATED)2022-02-17 10:02:35 Test Item Value Reference Range Interpretation Comments POCT GLU (test code = 8886773562) 339 mg/dL 70-110 H Lab Interpretation (test code = Abnormal 29457-1) General acute hospital GLUCOSE (AUTOMATED)2022-02-17 10:02:35 Test Item Value Reference Range Interpretation Comments POCT GLU (test code = 6798787586) 339 mg/dL 70-110 H Lab Interpretation (test code = Abnormal 67626-6) General acute hospital GLUCOSE (AUTOMATED)2022-02-17 06:33:22 Test Item Value Reference Range Interpretation Comments POCT GLU (test code = 9286691819) 295 mg/dL 70-110 H Lab Interpretation (test code = Abnormal 84734-0) General acute hospital GLUCOSE (AUTOMATED)2022-02-17 06:33:22 Test Item Value Reference Range Interpretation Comments POCT GLU (test code = 9717309771) 295 mg/dL 70-110 H Lab Interpretation (test code = Abnormal 54381-4) General acute hospital GLUCOSE (AUTOMATED)2022-02-17 01:54:18 Test Item Value Reference Range Interpretation Comments POCT GLU (test code = 4251623230) 258 mg/dL 70-110 H Lab Interpretation (test code = Abnormal 89390-9) General acute hospital GLUCOSE (AUTOMATED)2022-02-17 01:54:18 Test Item Value Reference Range Interpretation Comments POCT GLU (test code = 8264629316) 258 mg/dL 70-110 H Lab Interpretation (test code = Abnormal 60293-4) General acute hospital GLUCOSE (AUTOMATED)2022-02-16 23:03:09 Test Item Value Reference Range Interpretation Comments POCT GLU (test code = 0303394841) 286 mg/dL 70-110 H Lab Interpretation (test code = Abnormal 44844-7) General acute hospital GLUCOSE (AUTOMATED)2022-02-16 23:03:09 Test Item Value Reference Range Interpretation Comments POCT GLU (test code = 3258865103) 286 mg/dL 70-110 H Lab Interpretation (test code = Abnormal 30283-9) General acute hospital GLUCOSE (AUTOMATED)2022-02-16 20:48:08 Test Item Value Reference Range Interpretation Comments POCT GLU (test code = 9225150615) 249 mg/dL 70-110 H Lab Interpretation (test code = Abnormal 30390-3) General acute hospital GLUCOSE (AUTOMATED)2022-02-16 20:48:08 Test Item Value Reference Range Interpretation Comments POCT GLU (test code = 9980402762) 249 mg/dL 70-110 H Lab Interpretation (test code = Abnormal 31801-9) [facility] [id number] 17:01:47 Test Item Value Reference Range Interpretation Comments BOH (test code = 1.0 mmol/L 4667173275) ARPITA (test code = Normal Ranges: ? ? ARPITA) Nonfasting ? Less than 0.1 mmol/L ? ? Overnight Fast ? ? ? Less than 0.4 mmol/L ? ? Fasting (1-2 weeks) ?6-8 mmol/L Test developed and characteristics determined by [facility]. [facility] [id number] 17:01:47 Test Item Value Reference Range Interpretation Comments BOH (test code = 1.0 mmol/L 1363417284) ARPITA (test code = Normal Ranges: ? ? ARPITA) Nonfasting ? Less than 0.1 mmol/L ? ? Overnight Fast ? ? ? Less than 0.4 mmol/L ? ? Fasting (1-2 weeks) ?6-8 mmol/L Test developed and characteristics determined by [facility]. [facility] Center[facility] [id number] 17:01:47 Test Item Value Reference Range Interpretation Comments BOH (test code = 1.0 mmol/L 0612577194) ARPITA (test code = Normal Ranges: ? ? ARPITA) Nonfasting ? Less than 0.1 mmol/L ? ? Overnight Fast ? ? ? Less than 0.4 mmol/L ? ? Fasting (1-2 weeks) ?6-8 mmol/L Test developed and characteristics determined by [facility]. General acute hospital GLUCOSE (AUTOMATED)2022-02-16 16:42:59 Test Item Value Reference Range Interpretation Comments POCT GLU (test code = 1653037828) 264 mg/dL 70-110 H Lab Interpretation (test code = Abnormal 88959-0) General acute hospital GLUCOSE (AUTOMATED)2022-02-16 16:42:59 Test Item Value Reference Range Interpretation Comments POCT GLU (test code = 8407646423) 264 mg/dL 70-110 H Lab Interpretation (test code = Abnormal 31467-7) [facility] Metabolic Panel (Na, K, Cl, CO2, Glucose, BUN, Creatinine, Ca)2022-02-16 16:16:20 Test Item Value Reference Range Interpretation Comments NA (test code = 137 mmol/L 135-145 7123928329) K (test code = 3.5 mmol/L 3.5-5 0358017707) CL (test code = 115 mmol/L 98-108 H 2990431825) CO2 TOTAL (test code = 17 mmol/L 23-31 L 3204629941) AGAP (test code = 2-16 9417492935) BUN (test code = 5 mg/dL 7-23 L 9690510720) GLUCOSE (test code = 271 mg/dL 70-110 H 0413376214) CREATININE (test code = 0.45 mg/dL 0.6-1.25 L 8359652251) CALCIUM (test code = 8.5 mg/dL 8.6-10.6 L 9039353947) eGFR (test code = mL/min/1.73m2 6291256003) ARPITA (test code = ARPITA) Association of [...] tests). Lab Interpretation Abnormal (test code = 57189-6) [facility] Metabolic Panel (Na, K, Cl, CO2, Glucose, BUN, Creatinine, Ca)2022-02-16 16:16:20 Test Item Value Reference Range Interpretation Comments NA (test code = 137 mmol/L 135-145 0576365215) K (test code = 3.5 mmol/L 3.5-5 3778226695) CL (test code = 115 mmol/L 98-108 H 6327812715) CO2 TOTAL (test code = 17 mmol/L 23-31 L 0244004887) AGAP (test code = 2-16 7957880609) BUN (test code = 5 mg/dL 7-23 L 3779454426) GLUCOSE (test code = 271 mg/dL 70-110 H 4012424267) CREATININE (test code = 0.45 mg/dL 0.6-1.25 L 6985754949) CALCIUM (test code = 8.5 mg/dL 8.6-10.6 L 1344654609) eGFR (test code = mL/min/1.73m2 6975687436) ARPITA (test code = ARIPTA) Association of Glomerular Filtration Rate (GFR) and [...] tests). Lab Interpretation Abnormal (test code = 52070-6) General acute hospital GLUCOSE (AUTOMATED)2022-02-16 14:21:27 Test Item Value Reference Range Interpretation Comments POCT GLU (test code = 6892940511) 286 mg/dL 70-110 H Lab Interpretation (test code = Abnormal 13887-3) General acute hospital GLUCOSE (AUTOMATED)2022-02-16 14:21:27 Test Item Value Reference Range Interpretation Comments POCT GLU (test code = 5147423639) 286 mg/dL 70-110 H Lab Interpretation (test code = Abnormal 00052-7) [facility]LO[facility] PATH[facility]ENS DNA [id number] 13:29:25 Test Item Value Reference Range Interpretation Comments Coagulase Negative Positive Negative, See A Staphylococcus (test Comment/Narrative code = 14226-2) ARPITA (test code = ARPITA) Coagulase negative [...] contact the Antimicrobial Stewardship Program with questions.Pager: ?[phone] Testing included eleven identification and three resistance marker targets. Lab Interpretation Abnormal (test code = 58057-9) [facility]ENS DNA [id number] 13:29:25 Test Item Value Reference Range Interpretation Comments Coagulase Negative Positive Negative, See A Staphylococcus (test Comment/Narrative code = 42032-4) ARPITA (test code = ARPITA) Coagulase negative [...] contact the Antimicrobial Stewardship Program with questions.Pager: ?[phone] Testing included eleven identification and three resistance marker targets. Lab Interpretation Abnormal (test code = 92644-3) [facility] PATH[facility]ENS DNA [id number] 13:29:25 Test Item Value Reference Range Interpretation Comments Coagulase Negative Positive Negative, See A Staphylococcus (test Comment/Narrative code = 67325-2) ARPITA (test code = ARPITA) Coagulase negative [...] contact the Antimicrobial Stewardship Program with questions.Pager: ?[phone] Testing included eleven identification and three resistance marker targets. Lab Interpretation Abnormal (test code = 92523-4) General acute hospital GLUCOSE (AUTOMATED)2022-02-16 13:03:22 Test Item Value Reference Range Interpretation Comments POCT GLU (test code = 3537611642) 307 mg/dL 70-110 H Lab Interpretation (test code = Abnormal 05725-2) General acute hospital GLUCOSE (AUTOMATED)2022-02-16 13:03:22 Test Item Value Reference Range Interpretation Comments POCT GLU (test code = 2360290993) 307 mg/dL 70-110 H Lab Interpretation (test code = Abnormal 12833-5) General acute hospital GLUCOSE (AUTOMATED)2022-02-16 09:05:19 Test Item Value Reference Range Interpretation Comments POCT GLU (test code = 0249532333) 326 mg/dL 70-110 H Lab Interpretation (test code = Abnormal 38601-0) General acute hospital GLUCOSE (AUTOMATED)2022-02-16 09:05:19 Test Item Value Reference Range Interpretation Comments POCT GLU (test code = 7434672967) 326 mg/dL 70-110 H Lab Interpretation (test code = Abnormal 07553-7) General acute hospital GLUCOSE (AUTOMATED)2022-02-16 05:46:58 Test Item Value Reference Range Interpretation Comments POCT GLU (test code = 7082666551) 341 mg/dL 70-110 H Lab Interpretation (test code = Abnormal 79531-8) General acute hospital GLUCOSE (AUTOMATED)2022-02-16 05:46:58 Test Item Value Reference Range Interpretation Comments POCT GLU (test code = 6645034186) 341 mg/dL 70-110 H Lab Interpretation (test code = Abnormal 62283-8) General acute hospital GLUCOSE (AUTOMATED)2022-02-16 01:37:20 Test Item Value Reference Range Interpretation Comments POCT GLU (test code = 4699654500) 196 mg/dL 70-110 H Lab Interpretation (test code = Abnormal 99573-3) General acute hospital GLUCOSE (AUTOMATED)2022-02-16 01:37:20 Test Item Value Reference Range Interpretation Comments POCT GLU (test code = 2035642238) 196 mg/dL 70-110 H Lab Interpretation (test code = Abnormal 40452-5) General acute hospital GLUCOSE (AUTOMATED)2022-02-15 23:44:41 Test Item Value Reference Range Interpretation Comments POCT GLU (test code = 2306616528) 138 mg/dL 70-110 H Lab Interpretation (test code = Abnormal 66243-5) General acute hospital GLUCOSE (AUTOMATED)2022-02-15 23:44:41 Test Item Value Reference Range Interpretation Comments POCT GLU (test code = 6716555194) 138 mg/dL 70-110 H Lab Interpretation (test code = Abnormal 66833-7) [facility] Metabolic Panel (Na, K, Cl, CO2, Glucose, BUN, Creatinine, Ca)2022-02-15 23:12:45 Test Item Value Reference Range Interpretation Comments NA (test code = 138 mmol/L 135-145 6941911314) K (test code = 3.7 mmol/L 3.5-5 5184860728) CL (test code = 115 mmol/L 98-108 H 7760790119) CO2 TOTAL (test code = 17 mmol/L 23-31 L 6392728154) AGAP (test code = 2-16 2798722585) BUN (test code = 5 mg/dL 7-23 L 7035657119) GLUCOSE (test code = 86 mg/dL 70-110 6764994445) CREATININE (test code = 0.46 mg/dL 0.6-1.25 L 0466403953) CALCIUM (test code = 8.4 mg/dL 8.6-10.6 L 7241681978) eGFR (test code = mL/min/1.73m2 1041063908) ARPITA (test code = ARPITA) Association of [...] tests). Lab Interpretation Abnormal (test code = 98498-7) [facility] Metabolic Panel (Na, K, Cl, CO2, Glucose, BUN, Creatinine, Ca)2022-02-15 23:12:45 Test Item Value Reference Range Interpretation Comments NA (test code = 138 mmol/L 135-145 3565557012) K (test code = 3.7 mmol/L 3.5-5 3545477156) CL (test code = 115 mmol/L 98-108 H 3183692842) CO2 TOTAL (test code = 17 mmol/L 23-31 L 9996341232) AGAP (test code = 2-16 1517084857) BUN (test code = 5 mg/dL 7-23 L 3134508714) GLUCOSE (test code = 86 mg/dL 70-110 1054216753) CREATININE (test code = 0.46 mg/dL 0.6-1.25 L 1982591789) CALCIUM (test code = 8.4 mg/dL 8.6-10.6 L 3541202504) eGFR (test code = mL/min/1.73m2 8880658514) ARPTIA (test code = ARPITA) Association of Glomerular [...] tests). Lab Interpretation Abnormal (test code = 51200-8) [facility] hospital GLUCOSE (AUTOMATED)2022-02-15 22:38:52 Test Item Value Reference Range Interpretation Comments POCT GLU (test code = 3857400695) 94 mg/dL 70-110 Lab Interpretation (test code = Normal 48152-2) General acute hospital GLUCOSE (AUTOMATED)2022-02-15 22:38:52 Test Item Value Reference Range Interpretation Comments POCT GLU (test code = 6727304361) 94 mg/dL 70-110 Lab Interpretation (test code = Normal 31916-6) General acute hospital GLUCOSE (AUTOMATED)2022-02-15 21:31:35 Test Item Value Reference Range Interpretation Comments POCT GLU (test code = 3312464979) 119 mg/dL 70-110 H Lab Interpretation (test code = Abnormal 36739-6) General acute hospital GLUCOSE (AUTOMATED)2022-02-15 21:31:35 Test Item Value Reference Range Interpretation Comments POCT GLU (test code = 5937479014) 119 mg/dL 70-110 H Lab Interpretation (test code = Abnormal 92677-1) General acute hospital GLUCOSE (AUTOMATED)2022-02-15 20:06:03 Test Item Value Reference Range Interpretation Comments POCT GLU (test code = 0135736196) 177 mg/dL 70-110 H Lab Interpretation (test code = Abnormal 34650-8) General acute hospital GLUCOSE (AUTOMATED)2022-02-15 20:06:03 Test Item Value Reference Range Interpretation Comments POCT GLU (test code = 2289324420) 177 mg/dL 70-110 H Lab Interpretation (test code = Abnormal 71131-8) General acute hospital GLUCOSE (AUTOMATED)2022-02-15 19:07:20 Test Item Value Reference Range Interpretation Comments POCT GLU (test code = 2303933876) 185 mg/dL 70-110 H Lab Interpretation (test code = Abnormal 52951-5) General acute hospital GLUCOSE (AUTOMATED)2022-02-15 19:07:20 Test Item Value Reference Range Interpretation Comments POCT GLU (test code = 0506672621) 185 mg/dL 70-110 H Lab Interpretation (test code = Abnormal 06064-0) [facility] [id number] 18:44:53 Test Item Value Reference Interpretation Comments Range TROPONIN I (test 0.000 ng/mL See_Comment [Automated code = 3297578937) message] The system which generated this result [...] biotin. Lab Interpretation Normal (test code = 84964-5) [facility] [id number] 18:44:53 Test Item Value Reference Interpretation Comments Range TROPONIN I (test 0.000 ng/mL See_Comment [Automated code = 4151267161) message] The system which generated this result [...] biotin. Lab Interpretation Normal (test code = 23607-7) [facility] [id number] 18:44:53 Test Item Value Reference Interpretation Comments Range TROPONIN I (test 0.000 ng/mL See_Comment [Automated code = 8637307656) message] The system which generated this result [...] biotin. Lab Interpretation Normal (test code = 67955-3) [facility] Metabolic Panel (Na, K, Cl, CO2, Glucose, BUN, Creatinine, Ca)2022-02-15 18:27:49 Test Item Value Reference Range Interpretation Comments NA (test code = 138 mmol/L 135-145 8484784289) K (test code = 3.7 mmol/L 3.5-5 8363761481) CL (test code = 115 mmol/L 98-108 H 1900650258) CO2 TOTAL (test code = 16 mmol/L 23-31 L 2316557069) AGAP (test code = 2-16 2872957166) BUN (test code = 7 mg/dL 7-23 7793652557) GLUCOSE (test code = 195 mg/dL 70-110 H 1306741552) CREATININE (test code = 0.52 mg/dL 0.6-1.25 L 3631277611) CALCIUM (test code = 8.2 mg/dL 8.6-10.6 L 7717284984) eGFR (test code = mL/min/1.73m2 4146339961) ARPITA (test code = ARPITA) Association of [...] tests). Lab Interpretation Abnormal (test code = 46859-5) [facility] Metabolic Panel (Na, K, Cl, CO2, Glucose, BUN, Creatinine, Ca)2022-02-15 18:27:49 Test Item Value Reference Range Interpretation Comments NA (test code = 138 mmol/L 135-145 3856370255) K (test code = 3.7 mmol/L 3.5-5 8089784154) CL (test code = 115 mmol/L 98-108 H 0440855980) CO2 TOTAL (test code = 16 mmol/L 23-31 L 0765824157) AGAP (test code = 2-16 2910466419) BUN (test code = 7 mg/dL 7-23 8159422630) GLUCOSE (test code = 195 mg/dL 70-110 H 0444167699) CREATININE (test code = 0.52 mg/dL 0.6-1.25 L 5337590203) CALCIUM (test code = 8.2 mg/dL 8.6-10.6 L 0498078624) eGFR (test code = mL/min/1.73m2 8890224298) ARPITA (test code = ARPITA) Association of [...] tests). Lab Interpretation Abnormal (test code = 15340-7) [facility]Ap[facility]cp3296[facility]53-44 17:43:01 Test Item Value Reference Range Interpretation Comments BOH (test code = 3.3 mmol/L 3991602461) ARPITA (test code = Normal Ranges: ? ? ARPITA) Nonfasting ? Less than 0.1 mmol/L ? ? Overnight Fast ? ? ? Less than 0.4 mmol/L ? ? Fasting (1-2 weeks) ?6-8 mmol/L Test developed and characteristics determined by [facility]. [facility] Center[facility]ahydroxy-Cusmuoeu4681-69-12 17:43:01 Test Item Value Reference Range Interpretation Comments BOH (test code = 3.3 mmol/L 8407727655) ARPITA (test code = Normal Ranges: ? ? ARPITA) Nonfasting ? Less than 0.1 mmol/L ? ? Overnight Fast ? ? ? Less than 0.4 mmol/L ? ? Fasting (1-2 weeks) ?6-8 mmol/L Test developed and characteristics determined by [facility]. General acute hospital GLUCOSE (AUTOMATED)2022-02-15 17:29:05 Test Item Value Reference Range Interpretation Comments POCT GLU (test code = 2556566232) 192 mg/dL 70-110 H Lab Interpretation (test code = Abnormal 49447-9) General acute hospital GLUCOSE (AUTOMATED)2022-02-15 17:29:05 Test Item Value Reference Range Interpretation Comments POCT GLU (test code = 9110769056) 192 mg/dL 70-110 H Lab Interpretation (test code = Abnormal 94730-4) [facility] [id number] 16:28:42 Test Item Value Reference Range Interpretation Comments OSMOLALITY (test code = See_Comment H [Au tomated message] 2692-2) The system [employer] generated this result transmitted ref erence range: 278 - 30 5 mOsm/kg. The reference range was not used to int erpret this result as normal/abnormal . Lab Interpretation (test Abnormal code = 89679-8) [facility] [id number] 16:28:42 Test Item Value Reference Range Interpretation Comments OSMOLALITY (test code = See_Comment H [Au tomated message] 2692-2) The system [employer] generated this result transmitted ref erence range: 278 - 30 5 mOsm/kg. The reference range was not used to int erpret this result as normal/abnormal . Lab Interpretation (test Abnormal code = 16321-5) [facility] [id number] 16:28:42 Test Item Value Reference Range Interpretation Comments OSMOLALITY (test code = See_Comment H [Au tomated message] 2692-2) The system [employer] generated this result transmitted ref erence range: 278 - 30 5 mOsm/kg. The reference range was not used to int erpret this result as normal/abnormal . Lab Interpretation (test Abnormal code = 56626-8) [facility] Metabolic Panel (Na, K, Cl, CO2, Glucose, BUN, Creatinine, Ca)2022-02-15 16:02:27 Test Item Value Reference Range Interpretation Comments NA (test code = 138 mmol/L 135-145 3217011669) K (test code = 3.7 mmol/L 3.5-5 5854531399) CL (test code = 117 mmol/L 98-108 H 0259637969) CO2 TOTAL (test code = 15 mmol/L 23-31 L 8370710531) AGAP (test code = 2-16 1176183003) BUN (test code = 7 mg/dL 7-23 7277139259) GLUCOSE (test code = 204 mg/dL 70-110 H 9586321474) CREATININE (test code = 0.41 mg/dL 0.6-1.25 L 5751057694) CALCIUM (test code = 8.3 mg/dL 8.6-10.6 L 1951741780) eGFR (test code = mL/min/1.73m2 2331269984) ARPITA (test code = ARPITA) Association of [...] tests). Lab Interpretation Abnormal (test code = 78274-9) [facility] Metabolic Panel (Na, K, Cl, CO2, Glucose, BUN, Creatinine, Ca)2022-02-15 16:02:27 Test Item Value Reference Range Interpretation Comments NA (test code = 138 mmol/L 135-145 6631750254) K (test code = 3.7 mmol/L 3.5-5 7887457264) CL (test code = 117 mmol/L 98-108 H 3926295973) CO2 TOTAL (test code = 15 mmol/L 23-31 L 5625294627) AGAP (test code = 2-16 6678050785) BUN (test code = 7 mg/dL 7-23 1363977472) GLUCOSE (test code = 204 mg/dL 70-110 H 0861739444) CREATININE (test code = 0.41 mg/dL 0.6-1.25 L 6476701998) CALCIUM (test code = 8.3 mg/dL 8.6-10.6 L 1632623371) eGFR (test code = mL/min/1.73m2 5190521424) ARPITA (test code = ARPITA) Association of [...] tests). Lab Interpretation Abnormal (test code = 94092-8) [facility] acute hospital GLUCOSE (AUTOMATED)2022-02-15 15:54:35 Test Item Value Reference Range Interpretation Comments POCT GLU (test code = 8379747837) 200 mg/dL 70-110 H Lab Interpretation (test code = Abnormal 17083-7) General acute hospital GLUCOSE (AUTOMATED)2022-02-15 15:54:35 Test Item Value Reference Range Interpretation Comments POCT GLU (test code = 7462772596) 200 mg/dL 70-110 H Lab Interpretation (test code = Abnormal 08129-2) General acute hospital GLUCOSE (AUTOMATED)2022-02-15 14:57:17 Test Item Value Reference Range Interpretation Comments POCT GLU (test code = 9660472306) 211 mg/dL 70-110 H Lab Interpretation (test code = Abnormal 10957-6) General acute hospital GLUCOSE (AUTOMATED)2022-02-15 14:57:17 Test Item Value Reference Range Interpretation Comments POCT GLU (test code = 1396464993) 211 mg/dL 70-110 H Lab Interpretation (test code = Abnormal 18859-7) General acute hospital GLUCOSE (AUTOMATED)2022-02-15 13:50:06 Test Item Value Reference Range Interpretation Comments POCT GLU (test code = 1197359833) 216 mg/dL 70-110 H Lab Interpretation (test code = Abnormal 25370-1) General acute hospital GLUCOSE (AUTOMATED)2022-02-15 13:50:06 Test Item Value Reference Range Interpretation Comments POCT GLU (test code = 3719161372) 216 mg/dL 70-110 H Lab Interpretation (test code = Abnormal 83064-0) General acute hospital GLUCOSE (AUTOMATED)2022-02-15 10:43:13 Test Item Value Reference Range Interpretation Comments POCT GLU (test code = 3688349759) 199 mg/dL 70-110 H Lab Interpretation (test code = Abnormal 31283-2) General acute hospital GLUCOSE (AUTOMATED)2022-02-15 10:43:13 Test Item Value Reference Range Interpretation Comments POCT GLU (test code = 1147564324) 199 mg/dL 70-110 H Lab Interpretation (test code = Abnormal 57604-0) General acute hospital GLUCOSE (AUTOMATED)2022-02-15 09:31:59 Test Item Value Reference Range Interpretation Comments POCT GLU (test code = 2458913622) 172 mg/dL 70-110 H Lab Interpretation (test code = Abnormal 79545-3) General acute hospital GLUCOSE (AUTOMATED)2022-02-15 09:31:59 Test Item Value Reference Range Interpretation Comments POCT GLU (test code = 0326049206) 172 mg/dL 70-110 H Lab Interpretation (test code = Abnormal 57517-1) [facility] Metabolic Panel (Na, K, Cl, CO2, Glucose, BUN, Creatinine, Ca)2022-02-15 08:02:13 Test Item Value Reference Range Interpretation Comments NA (test code = 140 mmol/L 135-145 0411995618) K (test code = 3.8 mmol/L 3.5-5 2150575844) CL (test code = 110 mmol/L 98-108 H 2540908087) CO2 TOTAL (test code = 13 mmol/L 23-31 L 7393558225) AGAP (test code = 2-16 H 5694152507) BUN (test code = 10 mg/dL 7-23 8994965157) GLUCOSE (test code = 223 mg/dL 70-110 H 9243264985) CREATININE (test code = 0.58 mg/dL 0.6-1.25 L 3167046814) CALCIUM (test code = 8.8 mg/dL 8.6-10.6 5141991089) eGFR (test code = mL/min/1.73m2 6850058009) ARPITA (test code = ARPITA) Association of [...] tests). Lab Interpretation Abnormal (test code = 01269-8) [facility] Metabolic Panel (Na, K, Cl, CO2, Glucose, BUN, Creatinine, Ca)2022-02-15 08:02:13 Test Item Value Reference Range Interpretation Comments NA (test code = 140 mmol/L 135-145 6446470905) K (test code = 3.8 mmol/L 3.5-5 8532711759) CL (test code = 110 mmol/L 98-108 H 4802055071) CO2 TOTAL (test code = 13 mmol/L 23-31 L 9008483298) AGAP (test code = 2-16 H 2209978110) BUN (test code = 10 mg/dL 7-23 6482668679) GLUCOSE (test code = 223 mg/dL 70-110 H 7400168342) CREATININE (test code = 0.58 mg/dL 0.6-1.25 L 5363391922) CALCIUM (test code = 8.8 mg/dL 8.6-10.6 9941995373) eGFR (test code = mL/min/1.73m2 4234865675) ARPITA (test code = ARPITA) Association of [...] tests). Lab Interpretation Abnormal (test code = 52879-7) General acute hospital GLUCOSE (AUTOMATED)2022-02-15 07:26:01 Test Item Value Reference Range Interpretation Comments POCT GLU (test code = 3570421648) 245 mg/dL 70-110 H Lab Interpretation (test code = Abnormal 69907-6) General acute hospital GLUCOSE (AUTOMATED)2022-02-15 07:26:01 Test Item Value Reference Range Interpretation Comments POCT GLU (test code = 5841787058) 245 mg/dL 70-110 H Lab Interpretation (test code = Abnormal 76349-5) General acute hospital GLUCOSE(AGE >30DAYS)2022-02-15 07:11:00 Test Item Value Reference Range Interpretation Comments POCT Glu (age>30days) (test code = 245 mg/dL 70-110 3342) Lab Interpretation (test code = Normal 84988-2) General acute hospital GLUCOSE(AGE >30DAYS)2022-02-15 07:11:00 Test Item Value Reference Range Interpretation Comments POCT Glu (age>30days) (test code = 245 mg/dL 70-110 3342) Lab Interpretation (test code = Normal 41188-3) [facility]DAYS[facility]-15 07:11:00 Test Item Value Reference Range Interpretation Comments POCT Glu (age>30days) (test code = 245 mg/dL 70-110 3342) Lab Interpretation (test code = Normal 49045-3) [facility] (A[facility]C)2022-02-15 05:57:25 Test Item Value Reference Range Interpretation Comments HGB A1C (test code = 12.7 % 4-5.7 H 4548-4) ARPITA (test code = ARPITA) Reference RangesNormal: <5.7%Prediabetes: 5.7 - 6.4%Diabetes: > 6.5% Lab Interpretation (test Abnormal code = 88530-6) [facility]C)2022-02-15 05:57:25 Test Item Value Reference Range Interpretation Comments HGB A1C (test code = 12.7 % 4-5.7 H 4548-4) ARPITA (test code = ARPITA) Reference RangesNormal: <5.7%Prediabetes: 5.7 - 6.4%Diabetes: > 6.5% Lab Interpretation (test Abnormal code = 52517-5) [facility] (A[facility]C)2022-02-15 05:57:25 Test Item Value Reference Range Interpretation Comments HGB A1C (test code = 12.7 % 4-5.7 H 4548-4) ARPITA (test code = ARPITA) Reference RangesNormal: <5.7%Prediabetes: 5.7 - 6.4%Diabetes: > 6.5% Lab Interpretation (test Abnormal code = 89132-5) [id number] 05:46:44 Test Item Value Reference Range Interpretation Comments MAGNESIUM (test code = 4336264012) 1.7 mg/dL 1.7-2.4 Lab Interpretation (test code = Normal 79513-1) [facility] [id number] 05:46:44 Test Item Value Reference Range Interpretation Comments MAGNESIUM (test code = 8615740851) 1.7 mg/dL 1.7-2.4 Lab Interpretation (test code = Normal 68267-6) [facility] CenterPhosphor [id number] 05:46:24 Test Item Value Reference Range Interpretation Comments PHOSPHORUS (test code = 0867345114) 4.0 mg/dL 2.5-5 Lab Interpretation (test code = Normal 33896-9) [facility] [id number] 05:46:24 Test Item Value Reference Range Interpretation Comments PHOSPHORUS (test code = 0403714249) 4.0 mg/dL 2.5-5 Lab Interpretation (test code = Normal 36454-9) [facility] [id number] 05:46:24 Test Item Value Reference Range Interpretation Comments PHOSPHORUS (test code = 4930363743) 4.0 mg/dL 2.5-5 Lab Interpretation (test code = Normal 59413-4) General acute hospital GLUCOSE (AUTOMATED)2022-02-15 05:11:10 Test Item Value Reference Range Interpretation Comments POCT GLU (test code = 2121432443) 410 mg/dL 70-110 H Lab Interpretation (test code = Abnormal 31937-5) General acute hospital GLUCOSE (AUTOMATED)2022-02-15 05:11:10 Test Item Value Reference Range Interpretation Comments POCT GLU (test code = 9307792700) 410 mg/dL 70-110 H Lab Interpretation (test code = Abnormal 02020-3) General acute hospital GLUCOSE(AGE >30DAYS)2022-02-15 05:11:00 Test Item Value Reference Range Interpretation Comments POCT Glu (age>30days) (test code = 410 mg/dL 70-110 A 3342) Lab Interpretation (test code = Abnormal 62785-9) General acute hospital GLUCOSE(AGE >30DAYS)2022-02-15 05:11:00 Test Item Value Reference Range Interpretation Comments POCT Glu (age>30days) (test code = 410 mg/dL 70-110 A 3342) Lab Interpretation (test code = Abnormal 47363-5) [facility] WITH [id number] 05:03:57 Test Item Value Reference Range Interpretation [...] RDW-SD (test code = 44.1 fL 38.5-51.6 08420-6) RDW-CV (test code = 13.8 % 12.1-15.4 788-0) PLT (test code = See_Comment H [Automated 777-3) message] The sy stem which generated this result transmitted reference range : 150 - 328 10*3/ ?L. The reference r boubacar was not used to interpret this result as normal/abnormal . MPV (test code = 12.2 fL 9.8-13 37346-8) IPF % (test code = 9.4 % 1.2-10.7 Platelet count 3898872052) measured by fluorescence method. NRBC/100 WBC (test See_Comment [Automat ed code = 4309074615) message] The system which generated this result transmitted reference range : 0.0 - 10.0 /100 WBCs. The refer ence range was not u sed to interpret th is result as normal/abnormal . NRBC x10^3 (test code See_Comment [Auto mated = 3327227786) message] The s ystem which generated this result transmitted reference range : 10*3/?L. The reference range was not used to interpret this result as normal/abnormal . GRAN MAT (NEUT) % 65.1 % (test code = 770-8) IMM GRAN % (test code 1.10 % = 0826567202) LYMPH % (test code = 22.4 % 736-9) MONO % (test code = 9.8 % 5905-5) EOS % (test code = 1.4 % 713-8) BASO % (test code = 0.2 % 706-2) GRAN MAT x10^3(ANC) 6.15 10*3/uL 1.99-6.95 (test code = 0941545557) IMM GRAN x10^3 (test 0.10 10*3/uL 0-0.06 H code = 8780008337) LYMPH x10^3 (test code 2.11 10*3/uL 1.09-3.23 = 731-0) MONO x10^3 (test code 0.92 10*3/uL 0.36-1.02 = 742-7) EOS x10^3 (test code = 0.13 10*3/uL 0.06-0.53 711-2) BASO x10^3 (test code 0.01-0.09 = 704-7) Lab Interpretation Abnormal (test code = 96011-7) [facility] WITH [id number] 05:03:57 Test Item Value Reference Range Interpretation Comments WBC (test code = See_Comment [Automated 5090-2) message] The sy stem which generated this result transmitted reference range : 4.20 - 10.70 10*3/?L. The reference range was not used to interpret this result as normal/abnormal . RBC (test code = See_Comment [Automated 810-8) message] The sy stem which generated this [...] RDW-SD (test code = 44.1 fL 38.5-51.6 02279-0) RDW-CV (test code = 13.8 % 12.1-15.4 788-0) PLT (test code = See_Comment H [Automated 777-3) message] The sy stem which generated this result transmitted reference range : 150 - 328 10*3/ ?L. The reference r boubacar was not used to interpret this result as normal/abnormal . MPV (test code = 12.2 fL 9.8-13 55986-5) IPF % (test code = 9.4 % 1.2-10.7 Platelet count 3502086588) measured by fluorescence method. NRBC/100 WBC (test See_Comment [Automat ed code = 9930566052) message] The system which generated this result transmitted reference range : 0.0 - 10.0 /100 WBCs. The refer ence range was not u sed to interpret th is result as normal/abnormal . NRBC x10^3 (test code See_Comment [Auto mated = 5048255834) message] The s ystem which generated this result transmitted reference range : 10*3/?L. The reference range was not used to interpret this result as normal/abnormal . GRAN MAT (NEUT) % 65.1 % (test code = 770-8) IMM GRAN % (test code 1.10 % = 1833772624) LYMPH % (test code = 22.4 % 736-9) MONO % (test code = 9.8 % 5905-5) EOS % (test code = 1.4 % 713-8) BASO % (test code = 0.2 % 706-2) GRAN MAT x10^3(ANC) 6.15 10*3/uL 1.99-6.95 (test code = 8591534726) IMM GRAN x10^3 (test 0.10 10*3/uL 0-0.06 H code = 2566609669) LYMPH x10^3 (test code 2.11 10*3/uL 1.09-3.23 = 731-0) MONO x10^3 (test code 0.92 10*3/uL 0.36-1.02 = 742-7) EOS x10^3 (test code = 0.13 10*3/uL 0.06-0.53 711-2) BASO x10^3 (test code 0.01-0.09 = 704-7) Lab Interpretation Abnormal (test code = 76353-4) [facility] METABOLIC PANEL (NA, K, CL, CO2, GLUCOSE, BUN, CREATININE, CA)2022-02-15 04:46:12 Test Item Value Reference Range Interpretation Comments NA (test code = 136 mmol/L 135-145 1389732228) K (test code = 5.1 mmol/L 3.5-5 H 1718784948) CL (test code = 106 mmol/L 98-108 5121976629) CO2 TOTAL (test code = 9 mmol/L 23-31 L 8738693975) AGAP (test code = 2-16 H 3897317518) BUN (test code = 11 mg/dL 7-23 0612098392) GLUCOSE (test code = 405 mg/dL 70-110 H 2892649405) CREATININE (test code = 0.62 mg/dL 0.6-1.25 9567037761) CALCIUM (test code = 9.5 mg/dL 8.6-10.6 8007050093) eGFR (test code = mL/min/1.73m2 3418246743) ARPITA (test code = ARPITA) Association of [...] tests). Lab Interpretation Abnormal (test code = 64708-4) [facility] METABOLIC PANEL (NA, K, CL, CO2, GLUCOSE, BUN, CREATININE, CA)2022-02-15 04:46:12 Test Item Value Reference Range Interpretation Comments NA (test code = 136 mmol/L 135-145 6466118907) K (test code = 5.1 mmol/L 3.5-5 H 5535612759) CL (test code = 106 mmol/L 98-108 4285374979) CO2 TOTAL (test code = 9 mmol/L 23-31 L 2592766691) AGAP (test code = 2-16 H 8114850576) BUN (test code = 11 mg/dL 7-23 7448232781) GLUCOSE (test code = 405 mg/dL 70-110 H 1178730666) CREATININE (test code = 0.62 mg/dL 0.6-1.25 9035937973) CALCIUM (test code = 9.5 mg/dL 8.6-10.6 9891222238) eGFR (test code = mL/min/1.73m2 1507240642) ARPITA (test code = ARPITA) Association of [...] tests). Lab Interpretation Abnormal (test code = 60108-9) [facility] / [id number] 04:43:36 Test Item Value Reference Range Interpretation Comments PROTIME PATIENT (test See_Comment [Auto mated message] code = 5964-2) The system [employer] generated this result transmitted ref erence range: 12.0 - 1 4.7 Seconds. The re ference range was not u sed to interpret this result as normal/abnor mal. INR (test code = 6301-6) Nor mal INR <1.1; Warfarin Therap eutic range 2.0 to 3. 0 or 2.5 to 3.5, dep ending upon the indica tions. Lab Interpretation (test Normal code = 27248-4) [facility] / [id number] 04:43:36 Test Item Value Reference Range Interpretation Comments PROTIME PATIENT (test See_Comment [Auto mated message] code = 5964-2) The system [employer] generated this result transmitted ref erence range: 12.0 - 1 4.7 Seconds. The re ference range was not u sed to interpret this result as normal/abnor mal. INR (test code = 6301-6) Nor mal INR <1.1; Warfarin Therap eutic range 2.0 to 3. 0 or 2.5 to 3.5, dep ending upon the indica tions. Lab Interpretation (test Normal code = 58632-0) [facility] / [id number] 04:43:36 Test Item Value Reference Range Interpretation Comments PROTIME PATIENT (test See_Comment [Auto mated message] code = 5964-2) The system [employer] generated this result transmitted ref erence range: 12.0 - 1 4.7 Seconds. The re ference range was not u sed to interpret this result as normal/abnor mal. INR (test code = 6301-6) Nor mal INR <1.1; Warfarin Therap eutic range 2.0 to 3. 0 or 2.5 to 3.5, dep ending upon the indica tions. Lab Interpretation (test Normal code = 55535-7) [facility]91829[facility] (ALB,T.PRO,BILI T,BU/BC,ALT,AST,ALK PHOS)2022-02-15 04:40:15 Test Item Value Reference Range Interpretation Comments TOTAL BILI (test code = 8009606899) 0.9 mg/dL 0.1-1.1 BILI UNCON (test code = 7455835164) 0.3 mg/dL 0.1-1.1 BILI CONJ (test code = 6187232310) 0.0 mg/dL 0-0.3 T PROTEIN (test code = 7220458339) 7.5 g/dL 6.3-8.2 ALBUMIN (test code = 1016473404) 4.0 g/dL 3.5-5 ALK PHOS (test code = 3862611027) 166 U/L 34-122 H ALTv (test code = 1742-6) 28 U/L 5-50 AST(SGOT) (test code = 9154129139) 22 U/L 13-40 Lab Interpretation (test code = Abnormal 16477-1) [facility] (22170[facility] (ALB,T.PRO,BILI T,BU/BC,ALT,AST,ALK PHOS)2022-02-15 04:40:15 Test Item Value Reference Range Interpretation Comments TOTAL BILI (test code = 2061083188) 0.9 mg/dL 0.1-1.1 BILI UNCON (test code = 0942446943) 0.3 mg/dL 0.1-1.1 BILI CONJ (test code = 0212118794) 0.0 mg/dL 0-0.3 T PROTEIN (test code = 4290592699) 7.5 g/dL 6.3-8.2 ALBUMIN (test code = 2868214817) 4.0 g/dL 3.5-5 ALK PHOS (test code = 0407793812) 166 U/L 34-122 H ALTv (test code = 1742-6) 28 U/L 5-50 AST(SGOT) (test code = 5218205552) 22 U/L 13-40 Lab Interpretation (test code = Abnormal 85377-8) [facility] (40913[facility] (ALB,T.PRO,BILI T,BU/BC,ALT,AST,ALK PHOS)2022-02-15 04:40:15 Test Item Value Reference Range Interpretation Comments TOTAL BILI (test code = 3758942715) 0.9 mg/dL 0.1-1.1 BILI UNCON (test code = 9580599273) 0.3 mg/dL 0.1-1.1 BILI CONJ (test code = 9561148514) 0.0 mg/dL 0-0.3 T PROTEIN (test code = 4268214404) 7.5 g/dL 6.3-8.2 ALBUMIN (test code = 0122765121) 4.0 g/dL 3.5-5 ALK PHOS (test code = 5451164009) 166 U/L 34-122 H ALTv (test code = 1742-6) 28 U/L 5-50 AST(SGOT) (test code = 3633800612) 22 U/L 13-40 Lab Interpretation (test code = Abnormal 09814-2) [facility] 04:40:00 Test Item Value Reference Range Interpretation Comments LIPASE (test code = 0372050737) 239 U/L 0-220 H Lab Interpretation (test code = Abnormal 68079-5) [facility] 04:40:00 Test Item Value Reference Range Interpretation Comments LIPASE (test code = 9075109598) 239 U/L 0-220 H Lab Interpretation (test code = Abnormal 86343-5) [facility] 04:40:00 Test Item Value Reference Range Interpretation Comments LIPASE (test code = 4628729832) 239 U/L 0-220 H Lab Interpretation (test code = Abnormal 49214-0) [facility] CenterBLOOD CULTURE [id number] 02:01:26 Test Item Value Reference Range Interpretation Comments Blood Culture-Aerobic No organisms No growth Previo us (test code = 04864-6) isolated prelim inary verified result was Culture [...] Culture-Anaerobic isolated preliminar y (test code = 67898-8) verifi ed result was Culture In Progress [...] CDT Lab Interpretation Normal (test code = 98318-8) [facility] hospital GLUCOSE (AUTOMATED)2022-02-10 19:39:16 Test Item Value Reference Range Interpretation Comments POCT GLU (test code = 5423783047) 153 mg/dL 70-110 H Lab Interpretation (test code = Abnormal 02225-0) [facility] acute hospital GLUCOSE (AUTOMATED)2022-02-10 16:42:59 Test Item Value Reference Range Interpretation Comments POCT GLU (test code = 4765493489) 311 mg/dL 70-110 H Lab Interpretation (test code = Abnormal 08128-1) General acute hospital GLUCOSE (AUTOMATED)2022-02-10 01:48:17 Test Item Value Reference Range Interpretation Comments POCT GLU (test code = 8034576371) 253 mg/dL 70-110 H Lab Interpretation (test code = Abnormal 88435-4) General acute hospital GLUCOSE (AUTOMATED)2022-02-09 21:48:07 Test Item Value Reference Range Interpretation Comments POCT GLU (test code = 1564007116) 279 mg/dL 70-110 H Lab Interpretation (test code = Abnormal 01669-7) General acute hospital GLUCOSE (AUTOMATED)2022-02-09 16:48:09 Test Item Value Reference Range Interpretation Comments POCT GLU (test code = 0843910551) 275 mg/dL 70-110 H Lab Interpretation (test code = Abnormal 31484-0) [facility] METABOLIC PANEL (NA, K, CL, CO2, GLUCOSE, BUN, CREATININE, CA)2022-02-09 15:41:54 Test Item Value Reference Range Interpretation Comments NA (test code = 148 mmol/L 135-145 H 3743637500) K (test code = 4.3 mmol/L 3.5-5 7833703028) CL (test code = 123 mmol/L 98-108 H 3573705106) CO2 TOTAL (test code = 19 mmol/L 23-31 L 1054798412) AGAP (test code = 2-16 2084009899) BUN (test code = 23 mg/dL 7-23 5095401632) GLUCOSE (test code = 305 mg/dL 70-110 H 0174205497) CREATININE (test code = 0.61 mg/dL 0.6-1.25 9186866529) CALCIUM (test code = 8.5 mg/dL 8.6-10.6 L 6969716203) eGFR (test code = mL/min/1.73m2 8617524549) ARPITA (test code = ARPITA) Association of [...] tests). Lab Interpretation Abnormal (test code = 95926-4) [facility] CenterMAGNESIUM2022-07-29 15:17:07 Test Item Value Reference Range Interpretation Comments MAGNESIUM (test code = 9056337208) 1.8 mg/dL 1.7-2.4 Lab Interpretation (test code = Normal 26945-2) [facility] CenterPHOSPHORUS2022-07-29 15:17:07 Test Item Value Reference Range Interpretation Comments PHOSPHORUS (test code = 1673572812) 2.2 mg/dL 2.5-5 L Lab Interpretation (test code = Abnormal 17389-2) General acute hospital GLUCOSE (AUTOMATED)2022-02-09 12:48:51 Test Item Value Reference Range Interpretation Comments POCT GLU (test code = 0164816392) 274 mg/dL 70-110 H Lab Interpretation (test code = Abnormal 90087-4) General acute hospital GLUCOSE (AUTOMATED)2022-02-09 01:10:30 Test Item Value Reference Range Interpretation Comments POCT GLU (test code = 8609486275) 248 mg/dL 70-110 H Lab Interpretation (test code = Abnormal 71255-6) General acute hospital GLUCOSE (AUTOMATED)2022-02-09 01:10:30 Test Item Value Reference Range Interpretation Comments POCT GLU (test code = 9419828251) 300 mg/dL 70-110 H Lab Interpretation (test code = Abnormal 72666-9) General acute hospital GLUCOSE (AUTOMATED)2022-02-08 16:52:44 Test Item Value Reference Range Interpretation Comments POCT GLU (test code = 2646901003) 296 mg/dL 70-110 H Lab Interpretation (test code = Abnormal 12313-1) General acute hospital GLUCOSE (AUTOMATED)2022-02-08 16:52:43 Test Item Value Reference Range Interpretation Comments POCT GLU (test code = 8437279076) 345 mg/dL 70-110 H Lab Interpretation (test code = Abnormal 20545-7) General acute hospital GLUCOSE (AUTOMATED)2022-02-08 16:52:38 Test Item Value Reference Range Interpretation Comments POCT GLU (test code = 5678219181) 363 mg/dL 70-110 H Lab Interpretation (test code = Abnormal 23846-3) General acute hospital GLUCOSE (AUTOMATED)2022-02-08 16:52:38 Test Item Value Reference Range Interpretation Comments POCT GLU (test code = 8760441379) 444 mg/dL 70-110 H Lab Interpretation (test code = Abnormal 28030-9) General acute hospital GLUCOSE (AUTOMATED)2022-02-08 16:52:38 Test Item Value Reference Range Interpretation Comments POCT GLU (test code = 8787056421) 324 mg/dL 70-110 H Lab Interpretation (test code = Abnormal 38945-1) General acute hospital GLUCOSE (AUTOMATED)2022-02-08 16:52:38 Test Item Value Reference Range Interpretation Comments POCT GLU (test code = 1466130238) 303 mg/dL 70-110 H Lab Interpretation (test code = Abnormal 97224-4) General acute hospital GLUCOSE (AUTOMATED)2022-02-08 16:52:38 Test Item Value Reference Range Interpretation Comments POCT GLU (test code = 0077561684) 288 mg/dL 70-110 H Lab Interpretation (test code = Abnormal 82012-8) General acute hospital GLUCOSE (AUTOMATED)2022-02-08 16:37:12 Test Item Value Reference Range Interpretation Comments POCT GLU (test code = 0301151094) 241 mg/dL 70-110 H Lab Interpretation (test code = Abnormal 89306-7) General acute hospital GLUCOSE (AUTOMATED)2022-02-08 13:14:11 Test Item Value Reference Range Interpretation Comments POCT GLU (test code = 6231951352) 264 mg/dL 70-110 H Lab Interpretation (test code = Abnormal 66521-2) General acute hospital GLUCOSE (AUTOMATED)2022-02-08 11:04:52 Test Item Value Reference Range Interpretation Comments POCT GLU (test code = 4264546623) 257 mg/dL 70-110 H Lab Interpretation (test code = Abnormal 55169-7) General acute hospital GLUCOSE (AUTOMATED)2022-02-08 07:51:27 Test Item Value Reference Range Interpretation Comments POCT GLU (test code = 9611545809) 228 mg/dL 70-110 H Lab Interpretation (test code = Abnormal 61929-4) General acute hospital GLUCOSE (AUTOMATED)2022-02-08 03:43:14 Test Item Value Reference Range Interpretation Comments POCT GLU (test code = 5652748625) 269 mg/dL 70-110 H Lab Interpretation (test code = Abnormal 13139-0) General acute hospital GLUCOSE (AUTOMATED)2022-02-08 00:53:27 Test Item Value Reference Range Interpretation Comments POCT GLU (test code = 4624613372) 342 mg/dL 70-110 H Lab Interpretation (test code = Abnormal 48050-6) [facility] Metabolic Panel (Na, K, Cl, CO2, Glucose, BUN, Creatinine, Ca)2022-02-08 00:26:35 Test Item Value Reference Range Interpretation Comments NA (test code = 161 mmol/L 135-145 HH 0951336462) K (test code = 5.3 mmol/L 3.5-5 H 2313287069) CL (test code = 131 mmol/L 98-108 H 5264492058) CO2 TOTAL (test code = 14 mmol/L 23-31 L 0799786415) AGAP (test code = 2-16 5116456123) BUN (test code = 40 mg/dL 7-23 H 6579604778) GLUCOSE (test code = 363 mg/dL 70-110 H 3607620679) CREATININE (test code = 1.31 mg/dL 0.6-1.25 H 0860300240) CALCIUM (test code = 9.0 mg/dL 8.6-10.6 0994994808) eGFR (test code = mL/min/1.73m2 6406766909) ARPITA (test code = ARPITA) Association of [...] tests). Lab Interpretation Abnormal (test code = 88735-4) General acute hospital GLUCOSE (AUTOMATED)2022-02-07 22:31:31 Test Item Value Reference Range Interpretation Comments POCT GLU (test code = 6518779960) 349 mg/dL 70-110 H Lab Interpretation (test code = Abnormal 25566-6) General acute hospital GLUCOSE (AUTOMATED)2022-02-07 20:57:05 Test Item Value Reference Range Interpretation Comments POCT GLU (test code = 1900736685) 70-110 HH Lab Interpretation (test code = Abnormal 00576-9) General acute hospital GLUCOSE (AUTOMATED)2022-02-07 20:57:00 Test Item Value Reference Range Interpretation Comments POCT GLU (test code = 8564019914) 70-110 HH Lab Interpretation (test code = Abnormal 74117-0) General acute hospital GLUCOSE (AUTOMATED)2022-02-07 20:57:00 Test Item Value Reference Range Interpretation Comments POCT GLU (test code = 0299828818) 70-110 HH Lab Interpretation (test code = Abnormal 32264-0) General acute hospital GLUCOSE (AUTOMATED)2022-02-07 20:57:00 Test Item Value Reference Range Interpretation Comments POCT GLU (test code = 9187591195) 70-110 HH Lab Interpretation (test code = Abnormal 68877-3) [facility] CenterLactic Acid Whole [id number] 12:58:42 Test Item Value Reference Range Interpretation Comments LACTIC ACID (test code = 4.32 mmol/L 0.5-2.2 H 2896574890) Lab Interpretation (test code = Abnormal 60822-3) [facility] CenterPhosphorus [id number] 03:51:48 Test Item Value Reference Range Interpretation Comments PHOSPHORUS (test code = 6.7 mg/dL 2.5-5 H Slig ht hemolysis 3506045106) Lab Interpretation (test Abnormal code = 07202-0) [facility] CenterMagnesium Sbosy0173-22-07 03:51:48 Test Item Value Reference Range Interpretation Comments MAGNESIUM (test code = 0768396106) 2.8 mg/dL 1.7-2.4 H Lab Interpretation (test code = Abnormal 48692-6) [facility] CenterCOMP. METABOLIC PANEL (00379)2022-02-07 02:16:52 Test Item Value Reference Range Interpretation Comments NA (test code = 166 mmol/L 135-145 HH 3751410520) K (test code = 5.2 mmol/L 3.5-5 H 8660341679) CL (test code = 123 mmol/L 98-108 H 9961776626) CO2 TOTAL (test code = 12 mmol/L 23-31 L 5636595142) AGAP (test code = 2-16 H 1900554598) BUN (test code = 35 mg/dL 7-23 H 4711294532) GLUCOSE (test code = 941 mg/dL 70-110 HH 5598613250) CREATININE (test code = 1.51 mg/dL 0.6-1.25 H 0315971909) TOTAL BILI (test code = 1.1 mg/dL 0.1-1.6 9755442348) CALCIUM (test code = 10.7 mg/dL 8.6-10.6 H 3446238144) T PROTEIN (test code = 8.2 g/dL 6.3-8.2 4083431795) ALBUMIN (test code = 4.5 g/dL 3.5-5 1146053925) ALK PHOS (test code = 201 U/L 34-122 H 2936968980) ALTv (test code = 43 U/L 5-50 1742-6) AST(SGOT) (test code = 27 U/L 13-40 0604994511) eGFR (test code = mL/min/1.73m2 6215301439) ARPITA (test code = ARPITA) Association of [...] tests). Lab Interpretation Abnormal (test code = 89864-7) [facility] CenterFAROOQ [id number] 02:12:40 Test Item Value Reference Interpretation Comments Range TROPONIN I (test 0.005 ng/mL See_Comment [Automated code = 2703674242) message] The system which generated this result [...] biotin. Lab Interpretation Normal (test code = 33696-7) [facility] CenterSALICYLATE2022-07-27 02:06:11 SALICYLATE<10mg/L02/06/2022 9:06 PM [facility]ORYTherapeutic Range: ? Analgesic and Antipyretic Use ? 20- 100 mg/L ? ? Anti-Inflammatory Use ? 100-250 mg/L Toxic Range: ? Greater than 300 mg/LUnHouston [facility] Woodlands HospitalSALICYLATE2022-07-27 02:06:11SALICYLATE<10mg/L02/06/2022 9:06 PM [facility]The[facility] Range: ? Analgesic and Antipyretic Use ? 20-100 mg/L ? ? Anti-Inflammatory Use ? 100-250 mg/L Toxic Range: ? Greater than 300 mg/L [facility] CenterETHANOL2022-07-27 02:05:51 ALCOHOL<10mg/dL02/06/2022 9:05 PM [facility]<10 Npatlrpg76-368 Toxic>100 Depression of MOBILE UI DEVELOPER>400 Fatalities ReportedUnHouston Methodist The Woodlands HospitalETHANOL2022-07-27 02:05:51 ALCOHOL<10mg/dL02/06/2022 9:05 PM [facility]<10 Vsysfnzo89-246 Toxic>100 Depression of MOBILE UI DEVELOPER>400 Fatalities ReportedUnHouston Methodist The Woodlands HospitalACETAMINOPHEN2022-07-27 02:03:04 Test Item Value Reference Range Interpretation Comments ACETAMINOP (test code = 10-30 L 2382751092) ARPITA (test code = ARPITA) Toxic: Greater than 200 ug/mL @ 4 hour post ingestion or greater than 50 ug/mL @ 12 hour post ingestion Lab Interpretation (test Abnormal code = 08980-7) [facility] CenterACETAMINOPHEN2022-07-27 02:03:04 Test Item Value Reference Range Interpretation Comments ACETAMINOP (test code = 10-30 L 8805359027) ARPITA (test code = ARPITA) Toxic: Greater than 200 ug/mL @ 4 hour post ingestion or greater than 50 ug/mL @ 12 hour post ingestion Lab Interpretation (test Abnormal code = 97200-0) [facility] CenterLIPASE2022-07-27 02:01:02 Test Item Value Reference Range Interpretation Comments LIPASE (test code = 1103810955) 246 U/L 0-220 H Lab Interpretation (test code = Abnormal 14938-9) [facility] WITH [id number] 01:12:41 Test Item Value Reference Range Interpretation Comments WBC (test code = See_Comment H [Automated 3390-2) message] The system which generated this result [...] RDW-SD (test code = 50.8 fL 38.5-51.6 37065-0) RDW-CV (test code = 16.4 % 12.1-15.4 H 788-0) PLT (test code = See_Comment H [Automated 777-3) message] The system which generated this result transmit lester reference range : 150 - 328 10*3/ ?L. The reference range was not u sed to interpret th is result as normal/abnormal . MPV (test code = 11.6 fL 9.8-13 99911-5) NRBC/100 WBC (test See_Comment [Automat ed code = 3380556290) message] The system which generated this result transmit lester reference range : 0.0 - 10.0 /100 WBCs. The reference range was not used to interpret this result as normal/abnormal . NRBC x10^3 (test code See_Comment [Auto mated = 3449663255) message] The system which generated this result transmit lester reference range : 10*3/?L. The reference range was not used to interpret this result as normal/abnormal . SEG % (test code = 77 % 33-76 H 82366-1) BAND % (test code = 9 % 0-1 H 58406-9) LYMPH % (test code = 7 % 14-54 L 14264-0) MONO % (test code = 7 % 0-4 H 65763-6) ANC (test code = 15.98 10*3/uL 1.99-6.95 H 753-4) ALBERT CELLS (test code 2+ See_Comment A [Auto mated = 7790-9) message] The system which generated this result transmit lester reference range : (none). The reference range was not used to interpret this result as normal/abnormal . Lab Interpretation Abnormal (test code = 81935-1) General acute hospital GLUCOSE (AUTOMATED)2022-01-27 01:30:22 Test Item Value Reference Range Interpretation Comments POCT GLU (test code = 0926972831) 392 mg/dL 70-110 H Lab Interpretation (test code = Abnormal 41563-1) General acute hospital GLUCOSE(AGE >30DAYS)2022-01-27 01:30:00 Test Item Value Reference Range Interpretation Comments POCT Glu (age>30days) 392 mg/dL, 70-110 (test code = 3342) [facility] Lab Interpretation (test Normal code = 66153-7) General acute hospital GLUCOSE (AUTOMATED)2022-01-27 00:43:22 Test Item Value Reference Range Interpretation Comments POCT GLU (test code = 4287705550) 430 mg/dL 70-110 H Lab Interpretation (test code = Abnormal 97456-0) General acute hospital GLUCOSE (AUTOMATED)2022-01-26 23:29:00 Test Item Value Reference Range Interpretation Comments POCT GLU (test code = 1176485333) 493 mg/dL 70-110 HH Lab Interpretation (test code = Abnormal 55305-9) [facility] METABOLIC PANEL (NA, K, CL, CO2, GLUCOSE, BUN, CREATININE, CA)2022-01-26 22:56:10 Test Item Value Reference Range Interpretation Comments NA (test code = 132 mmol/L 135-145 L 5702266738) K (test code = 4.4 mmol/L 3.5-5 5536051886) CL (test code = 98 mmol/L 98-108 2483172888) CO2 TOTAL (test code = 19 mmol/L 23-31 L 7491401883) AGAP (test code = 2-16 8947888686) BUN (test code = 11 mg/dL 7-23 8595974356) GLUCOSE (test code = 519 mg/dL 70-110 HH 5209913104) CREATININE (test code = 0.55 mg/dL 0.6-1.25 L 1473308347) CALCIUM (test code = 9.5 mg/dL 8.6-10.6 8442371195) eGFR (test code = mL/min/1.73m2 3281113981) ARPITA (test code = ARPITA) Association of [...] tests). Lab Interpretation Abnormal (test code = 52029-4) [facility] WITH [id number] 22:45:19 Test Item Value Reference Range Interpretation Comments WBC (test code = See_Comment [Automated 0929-2) message] The sy stem which generated this result transmitted reference range : 4.20 - 10.70 10*3/?L. The reference range was not used to interpret this result as normal/abnormal . RBC (test code = See_Comment [Automated 140-8) message] The sy stem which generated this [...] RDW-SD (test code = 41.7 fL 38.5-51.6 20854-1) RDW-CV (test code = 13.6 % 12.1-15.4 788-0) PLT (test code = See_Comment H [Automated 777-3) message] The sy stem which generated this result transmitted reference range : 150 - 328 10*3/ ?L. The reference r boubacar was not used to interpret this result as normal/abnormal . MPV (test code = 10.6 fL 9.8-13 44428-0) NRBC/100 WBC (test See_Comment [Automat ed code = 6280531746) message] The system which generated this result transmitted reference range : 0.0 - 10.0 /100 WBCs. The refer ence range was not u sed to interpret th is result as normal/abnormal . NRBC x10^3 (test code See_Comment [Auto mated = 4614824343) message] The s ystem which generated this result transmitted reference range : 10*3/?L. The reference range was not used to interpret this result as normal/abnormal . GRAN MAT (NEUT) % 66.6 % (test code = 770-8) IMM GRAN % (test code 0.40 % = 3598417674) LYMPH % (test code = 20.5 % 736-9) MONO % (test code = 10.9 % 5905-5) EOS % (test code = 1.5 % 713-8) BASO % (test code = 0.1 % 706-2) GRAN MAT x10^3(ANC) 4.88 10*3/uL 1.99-6.95 (test code = 9769818744) IMM GRAN x10^3 (test 0.03 10*3/uL 0-0.06 code = 2977939188) LYMPH x10^3 (test code 1.50 10*3/uL 1.09-3.23 = 731-0) MONO x10^3 (test code 0.80 10*3/uL 0.36-1.02 = 742-7) EOS x10^3 (test code = 0.11 10*3/uL 0.06-0.53 711-2) BASO x10^3 (test code 0.01-0.09 = 704-7) Lab Interpretation Abnormal (test code = 12633-7) [facility] WITH [id number] 11:05:43 Test Item Value Reference Range Interpretation [...] RDW-SD (test code = 41.7 fL 38.5-51.6 04622-9) RDW-CV (test code = 13.4 % 12.1-15.4 788-0) PLT (test code = See_Comment H [Automated 777-3) message] The sy stem which generated this result transmitted reference range : 150 - 328 10*3/ ?L. The reference r boubacar was not used to interpret this result as normal/abnormal . MPV (test code = 10.3 fL 9.8-13.0 85984-6) NRBC/100 WBC (test See_Comment [Automat ed code = 8325909269) message] The system which generated this result transmitted reference range : 0.0 - 10.0 /100 WBCs. The refer ence range was not u sed to interpret th is result as normal/abnormal . NRBC x10^3 (test code <0.01 See_Comment [Auto mated = 1758920249) message] The s [employer] which generated this result transmitted reference range : 10*3/?L. The reference range was not used to interpret this result as normal/abnormal . GRAN MAT (NEUT) % 71.2 % (test code = 770-8) IMM GRAN % (test code 1.30 % = 4981996707) LYMPH % (test code = 18.2 % 736-9) MONO % (test code = 7.1 % 5905-5) EOS % (test code = 1.9 % 713-8) BASO % (test code = 0.3 % 706-2) GRAN MAT x10^3(ANC) 8.37 10*3/uL 1.99-6.95 H (test code = 3875751894) IMM GRAN x10^3 (test 0.15 10*3/uL 0.00-0.06 H code = 9054025930) LYMPH x10^3 (test code 2.14 10*3/uL 1.09-3.23 = 731-0) MONO x10^3 (test code 0.84 10*3/uL 0.36-1.02 = 742-7) EOS x10^3 (test code = 0.22 10*3/uL 0.06-0.53 711-2) BASO x10^3 (test code 0.04 10*3/uL 0.01-0.09 = 704-7) Lab Interpretation Abnormal (test code = 39834-3) [facility]. METABOLIC PANEL (07722)2022-01-17 11:03:21 Test Item Value Reference Range Interpretation Comments NA (test code = 133 mmol/L 135-145 L 7306643803) K (test code = 4.3 mmol/L 3.5-5.0 6229884586) CL (test code = 99 mmol/L 98-108 2120485020) CO2 TOTAL (test code = 20 mmol/L 23-31 L 4650058395) AGAP (test code = 2-16 2958525070) BUN (test code = 11 mg/dL 7-23 4739996059) GLUCOSE (test code = 357 mg/dL 70-110 H 4150298852) CREATININE (test code = 0.52 mg/dL 0.60-1.25 L 0087166583) TOTAL BILI (test code = 0.7 mg/dL 0.1-1.5 0894639105) CALCIUM (test code = 9.6 mg/dL 8.6-10.6 4531894614) T PROTEIN (test code = 7.5 g/dL 6.3-8.2 5717778225) ALBUMIN (test code = 4.2 g/dL 3.5-5.0 6515538899) ALK PHOS (test code = 185 U/L 34-122 H 8127620546) ALTv (test code = 78 U/L 5-50 H 1742-6) AST(SGOT) (test code = 18 U/L 13-40 6927639674) eGFR (test code = mL/min/1.73m2 1177892087) ARPITA (test code = ARPITA) Association of [...] tests). Lab Interpretation Abnormal (test code = 72463-0) [facility] 11:02:41 Test Item Value Reference Range Interpretation Comments LIPASE (test code = 3357056257) 63 U/L 0-220 Lab Interpretation (test code = Normal 83118-8) [facility] acute hospital GLUCOSE (AUTOMATED)2022-01-12 22:54:04 Test Item Value Reference Range Interpretation Comments POCT GLU (test code = 9234512352) 361 mg/dL 70-110 H Lab Interpretation (test code = Abnormal 35272-5) General acute hospital GLUCOSE (AUTOMATED)2022-01-12 12:19:07 Test Item Value Reference Range Interpretation Comments POCT GLU (test code = 6637045409) 390 mg/dL 70-110 H Lab Interpretation (test code = Abnormal 53537-4) General acute hospital GLUCOSE (AUTOMATED)2022-01-12 04:48:35 Test Item Value Reference Range Interpretation Comments POCT GLU (test code = 4556325770) 412 mg/dL 70-110 H Lab Interpretation (test code = Abnormal 96486-9) General acute hospital GLUCOSE (AUTOMATED)2022-01-12 01:44:33 Test Item Value Reference Range Interpretation Comments POCT GLU (test code = [id number]) 376 mg/dL 70-110 H Lab Interpretation (test code = Abnormal 04021-0) General acute hospital GLUCOSE (AUTOMATED)2022-01-11 21:51:37 Test Item Value Reference Range Interpretation Comments POCT GLU (test code = [id number]) 267 mg/dL 70-110 H Lab Interpretation (test code = Abnormal 53473-0) General acute hospital GLUCOSE (AUTOMATED)2022-01-11 17:05:21 Test Item Value Reference Range Interpretation Comments POCT GLU (test code = 3809941367) 377 mg/dL 70-110 H Lab Interpretation (test code = Abnormal 48977-8) [facility] acute hospital GLUCOSE (AUTOMATED)2022-01-11 13:10:54 Test Item Value Reference Range Interpretation Comments POCT GLU (test code = 3838277714) 495 mg/dL 70-110 HH Lab Interpretation (test code = Abnormal 04052-7) General acute hospital GLUCOSE (AUTOMATED)2022-01-11 08:34:04 Test Item Value Reference Range Interpretation Comments POCT GLU (test code = 1302248337) 427 mg/dL 70-110 H Lab Interpretation (test code = Abnormal 20182-3) General acute hospital GLUCOSE (AUTOMATED)2022-01-11 05:46:02 Test Item Value Reference Range Interpretation Comments POCT GLU (test code = 0558629218) 451 mg/dL 70-110 HH Lab Interpretation (test code = Abnormal 21884-0) General acute hospital GLUCOSE (AUTOMATED)2022-01-11 02:44:38 Test Item Value Reference Range Interpretation Comments POCT GLU (test code = 0080277837) 429 mg/dL 70-110 H Lab Interpretation (test code = Abnormal 24283-5) General acute hospital GLUCOSE (AUTOMATED)2022-01-10 22:38:24 Test Item Value Reference Range Interpretation Comments POCT GLU (test code = 2749171922) 404 mg/dL 70-110 H Lab Interpretation (test code = Abnormal 46911-7) General acute hospital GLUCOSE (AUTOMATED)2022-01-10 18:05:20 Test Item Value Reference Range Interpretation Comments POCT GLU (test code = 0840609911) 423 mg/dL 70-110 H Lab Interpretation (test code = Abnormal 41837-7) [facility] METABOLIC PANEL (NA, K, CL, CO2, GLUCOSE, BUN, CREATININE, CA)2022-01-10 14:56:25 Test Item Value Reference Range Interpretation Comments NA (test code = 135 mmol/L 135-145 7589569765) K (test code = 4.0 mmol/L 3.5-5.0 7452458244) CL (test code = 102 mmol/L 98-108 9901013962) CO2 TOTAL (test code = 22 mmol/L 23-31 L 2533831448) AGAP (test code = 2-16 2981203319) BUN (test code = 13 mg/dL 7-23 3152445030) GLUCOSE (test code = 547 mg/dL 70-110 HH 0097915554) CREATININE (test code = 0.65 mg/dL 0.60-1.25 0610205864) CALCIUM (test code = 8.6 mg/dL 8.6-10.6 8870032153) eGFR (test code = mL/min/1.73m2 1914855266) ARPITA (test code = ARPITA) Association of [...] tests). Lab Interpretation Abnormal (test code = 04217-3) General acute hospital GLUCOSE (AUTOMATED)2022-01-10 13:36:27 Test Item Value Reference Range Interpretation Comments POCT GLU (test code = 1484623332) 526 mg/dL 70-110 HH Lab Interpretation (test code = Abnormal 65714-4) General acute hospital GLUCOSE (AUTOMATED)2022-01-10 12:52:44 Test Item Value Reference Range Interpretation Comments POCT GLU (test code = 4150934483) >600 70-110 HH Lab Interpretation (test code = Abnormal 43349-6) General acute hospital GLUCOSE (AUTOMATED)2022-01-10 12:52:44 Test Item Value Reference Range Interpretation Comments POCT GLU (test code = 5750835931) >600 70-110 HH Lab Interpretation (test code = Abnormal 61438-1) General acute hospital GLUCOSE (AUTOMATED)2022-01-10 11:02:02 Test Item Value Reference Range Interpretation Comments POCT GLU (test code = 0898091739) 521 mg/dL 70-110 HH Lab Interpretation (test code = Abnormal 36821-4) General acute hospital GLUCOSE (AUTOMATED)2022-01-10 07:22:18 Test Item Value Reference Range Interpretation Comments POCT GLU (test code = 5128185444) 534 mg/dL 70-110 HH Lab Interpretation (test code = Abnormal 00649-6) [facility] METABOLIC PANEL (NA, K, CL, CO2, GLUCOSE, BUN, CREATININE, CA)2022-01-10 06:34:51 Test Item Value Reference Range Interpretation Comments NA (test code = 133 mmol/L 135-145 L 7872380603) K (test code = 4.9 mmol/L 3.5-5.0 Slight 1051792543) hemolysis CL (test code = 96 mmol/L 98-108 L 3781379605) CO2 TOTAL (test code 21 mmol/L 23-31 L = 8531028082) AGAP (test code = 2-16 1746186982) BUN (test code = 12 mg/dL 7-23 Slight 7546818215) hemolysis GLUCOSE (test code = 639 mg/dL 70-110 HH 9561132837) CREATININE (test code 0.46 mg/dL 0.60-1.25 L = 8531290588) CALCIUM (test code = 9.7 mg/dL 8.6-10.6 4291686062) eGFR (test code = mL/min/1.73m2 5107517092) ARPITA (test code = ARPITA) Association of [...] tests). Lab Interpretation Abnormal (test code = 59343-1) [facility]. METABOLIC PANEL ([id number])2022-01-10 02:59:57 Test Item Value Reference Range Interpretation Comments NA (test code = 126 mmol/L 135-145 L 9891077853) K (test code = 5.2 mmol/L 3.5-5.0 H 5831853871) CL (test code = 89 mmol/L 98-108 L 4140444149) CO2 TOTAL (test code = 20 mmol/L 23-31 L 5414702601) AGAP (test code = 2-16 H 5076803464) BUN (test code = 12 mg/dL 7-23 0433129764) GLUCOSE (test code = 856 mg/dL 70-110 HH 1742238958) CREATININE (test code = 0.49 mg/dL 0.60-1.25 L 9454203622) TOTAL BILI (test code = 0.7 mg/dL 0.1-1.7 5861561710) CALCIUM (test code = 10.2 mg/dL 8.6-10.6 2564122751) T PROTEIN (test code = 8.2 g/dL 6.3-8.2 4771182666) ALBUMIN (test code = 4.5 g/dL 3.5-5.0 9593267824) ALK PHOS (test code = 186 U/L 34-122 H 3288870607) ALTv (test code = 27 U/L 5-50 1742-6) AST(SGOT) (test code = 18 U/L 13-40 5161181898) eGFR (test code = mL/min/1.73m2 1891683395) ARPITA (test code = ARPITA) Association of [...] tests). Lab Interpretation Abnormal (test code = 79697-6) [facility] Test Item Value Reference Range Interpretation Comments LIPASE (test code = 9541606577) 146 U/L 0-220 Lab Interpretation (test code = Normal 10737-6) [facility] WITH [id number] 02:34:07 Test Item Value Reference Range Interpretation Comments WBC (test code = See_Comment [Automated 1490-2) message] The sy stem which generated this [...] RDW-SD (test code = 42.0 fL 38.5-51.6 62863-0) RDW-CV (test code = 13.5 % 12.1-15.4 788-0) PLT (test code = See_Comment H [Automated 777-3) message] The sy stem which generated this result transmitted reference range : 150 - 328 10*3/ ?L. The reference r boubacar was not used to interpret this result as normal/abnormal . MPV (test code = 10.5 fL 9.8-13.0 94227-3) NRBC/100 WBC (test See_Comment [Automat ed code = 3618710083) message] The system which generated this result transmitted reference range : 0.0 - 10.0 /100 WBCs. The refer ence range was not u sed to interpret th is result as normal/abnormal . NRBC x10^3 (test code <0.01 See_Comment [Auto mated = 9279624122) message] The s ystem which generated this result transmitted reference range : 10*3/?L. The reference range was not used to interpret this result as normal/abnormal . GRAN MAT (NEUT) % 67.5 % (test code = 770-8) IMM GRAN % (test code 0.70 % = 4447451666) LYMPH % (test code = 21.7 % 736-9) MONO % (test code = 8.4 % 5905-5) EOS % (test code = 1.3 % 713-8) BASO % (test code = 0.4 % 706-2) GRAN MAT x10^3(ANC) 6.61 10*3/uL 1.99-6.95 (test code = 6972342485) IMM GRAN x10^3 (test 0.07 10*3/uL 0.00-0.06 H code = 5772568061) LYMPH x10^3 (test code 2.12 10*3/uL 1.09-3.23 = 731-0) MONO x10^3 (test code 0.82 10*3/uL 0.36-1.02 = 742-7) EOS x10^3 (test code = 0.13 10*3/uL 0.06-0.53 711-2) BASO x10^3 (test code 0.04 10*3/uL 0.01-0.09 = 704-7) Lab Interpretation Abnormal (test code = 76093-6) [id number] (ALB,T.PRO,BILI T,BU/BC,ALT,AST,ALK PHOS)2022-01-06 13:57:09 Test Item Value Reference Range Interpretation Comments TOTAL BILI (test code = 0249138149) 0.7 mg/dL 0.1-1.1 BILI UNCON (test code = 3064647768) 0.3 mg/dL 0.1-1.1 BILI CONJ (test code = 1175834527) 0.0 mg/dL 0.0-0.3 T PROTEIN (test code = 9224266607) 7.5 g/dL 6.3-8.2 ALBUMIN (test code = 1765888867) 3.8 g/dL 3.5-5.0 ALK PHOS (test code = 7460096824) 161 U/L 34-122 H ALTv (test code = 1742-6) 44 U/L 5-50 AST(SGOT) (test code = 1551946785) 47 U/L 13-40 H Lab Interpretation (test code = Abnormal 80886-5) [facility] (NA, K, CL, CO2, GLUCOSE, BUN, CREATININE, CA)2022-01-06 10:48:59 Test Item Value Reference Range Interpretation Comments NA (test code = 136 mmol/L 135-145 7759676026) K (test code = 3.8 mmol/L 3.5-5.0 6871215873) CL (test code = 101 mmol/L 98-108 4983858042) CO2 TOTAL (test code = 22 mmol/L 23-31 L 7424118061) AGAP (test code = 2-16 1063680708) BUN (test code = 16 mg/dL 7-23 1452795656) GLUCOSE (test code = 358 mg/dL 70-110 H 6467822241) CREATININE (test code = 0.63 mg/dL 0.60-1.25 3948147462) CALCIUM (test code = 9.2 mg/dL 8.6-10.6 1887586957) eGFR (test code = mL/min/1.73m2 9186809250) ARPITA (test code = ARPITA) Association of [...] tests). Lab Interpretation Abnormal (test code = 97447-4) [facility] WITH [id number] 10:01:35 Test Item Value Reference Range Interpretation [...] RDW-SD (test code = 41.6 fL 38.5-51.6 47641-5) RDW-CV (test code = 13.4 % 12.1-15.4 788-0) PLT (test code = See_Comment H [Automated 777-3) message] The sy stem which generated this result transmitted reference range : 150 - 328 10*3/ ?L. The reference r boubacar was not used to interpret this result as normal/abnormal . MPV (test code = 11.0 fL 9.8-13.0 45471-4) NRBC/100 WBC (test See_Comment [Automat ed code = 0664163621) message] The system which generated this result transmitted reference range : 0.0 - 10.0 /100 WBCs. The refer ence range was not u sed to interpret th is result as normal/abnormal . NRBC x10^3 (test code <0.01 See_Comment [Auto mated = 3343208807) message] The s ystem which generated this result transmitted reference range : 10*3/?L. The reference range was not used to interpret this result as normal/abnormal . GRAN MAT (NEUT) % 62.6 % (test code = 770-8) IMM GRAN % (test code 0.40 % = 8714144671) LYMPH % (test code = 23.2 % 736-9) MONO % (test code = 9.6 % 5905-5) EOS % (test code = 3.8 % 713-8) BASO % (test code = 0.4 % 706-2) GRAN MAT x10^3(ANC) 4.76 10*3/uL 1.99-6.95 (test code = 7162264803) IMM GRAN x10^3 (test 0.03 10*3/uL 0.00-0.06 code = 9664544220) LYMPH x10^3 (test code 1.76 10*3/uL 1.09-3.23 = 731-0) MONO x10^3 (test code 0.73 10*3/uL 0.36-1.02 = 742-7) EOS x10^3 (test code = 0.29 10*3/uL 0.06-0.53 711-2) BASO x10^3 (test code 0.03 10*3/uL 0.01-0.09 = 704-7) Lab Interpretation Abnormal (test code = 64645-6) [facility]. METABOLIC PANEL (16156)2022-01-05 04:36:59 Test Item Value Reference Range Interpretation Comments NA (test code = 138 mmol/L 135-145 4587662329) K (test code = 5.4 mmol/L 3.5-5.0 H 7216407520) CL (test code = 98 mmol/L 98-108 2360227123) CO2 TOTAL (test code = 17 mmol/L 23-31 L 9023605892) AGAP (test code = 2-16 H 0642622604) BUN (test code = 19 mg/dL 7-23 9614500973) GLUCOSE (test code = 469 mg/dL 70-110 HH 1799091347) CREATININE (test code = 0.74 mg/dL 0.60-1.25 9422651601) TOTAL BILI (test code = 1.0 mg/dL 0.1-1.4 4671988907) CALCIUM (test code = 10.1 mg/dL 8.6-10.6 2189621591) T PROTEIN (test code = 8.2 g/dL 6.3-8.2 8899576346) ALBUMIN (test code = 4.6 g/dL 3.5-5.0 0809862443) ALK PHOS (test code = 208 U/L 34-122 H 1174301301) ALTv (test code = 51 U/L 5-50 H 2-6) AST(SGOT) (test code = 18 U/L 13-40 4340220560) eGFR (test code = mL/min/1.73m2 4781676766) ARPITA (test code = ARPITA) Association of [...] tests). Lab Interpretation Abnormal (test code = 39979-0) [facility] 04[facility]29:02 Test Item Value Reference Range Interpretation Comments LIPASE (test code = 3355254770) 137 U/L 0-220 Lab Interpretation (test code = Normal 10324-6) [facility] WITH [id number] 04:07:59 Test Item Value Reference Range Interpretation [...] RDW-SD (test code = 42.6 fL 38.5-51.6 92496-1) RDW-CV (test code = 13.6 % 12.1-15.4 788-0) PLT (test code = See_Comment H [Automated 777-3) message] The sy stem which generated this result transmitted reference range : 150 - 328 10*3/ ?L. The reference r boubacar was not used to interpret this result as normal/abnormal . MPV (test code = 10.7 fL 9.8-13.0 78205-1) NRBC/100 WBC (test See_Comment [Automat ed code = 6512342159) message] The system which generated this result transmitted reference range : 0.0 - 10.0 /100 WBCs. The refer ence range was not u sed to interpret th is result as normal/abnormal . NRBC x10^3 (test code <0.01 See_Comment [Auto mated = 8619220652) message] The s ystem which generated this result transmitted reference range : 10*3/?L. The reference range was not used to interpret this result as normal/abnormal . GRAN MAT (NEUT) % 74.2 % (test code = 770-8) IMM GRAN % (test code 0.50 % = 4946593272) LYMPH % (test code = 14.8 % 736-9) MONO % (test code = 8.3 % 5905-5) EOS % (test code = 1.9 % 713-8) BASO % (test code = 0.3 % 706-2) GRAN MAT x10^3(ANC) 8.01 10*3/uL 1.99-6.95 H (test code = 8682453221) IMM GRAN x10^3 (test 0.05 10*3/uL 0.00-0.06 code = 6433995974) LYMPH x10^3 (test code 1.59 10*3/uL 1.09-3.23 = 731-0) MONO x10^3 (test code 0.89 10*3/uL 0.36-1.02 = 742-7) EOS x10^3 (test code = 0.20 10*3/uL 0.06-0.53 711-2) BASO x10^3 (test code 0.03 10*3/uL 0.01-0.09 = 704-7) Lab Interpretation Abnormal (test code = 40468-4) [facility] GLUCOSE (AUTOMATED)2021-12-22 17:25:00 Test Item Value Reference Range Interpretation Comments POCT GLU (test code = 5670601101) 249 mg/dL 70-110 H Lab Interpretation (test code = Abnormal 43294-4) General acute hospital GLUCOSE (AUTOMATED)2021-12-22 12:54:01 Test Item Value Reference Range Interpretation Comments POCT GLU (test code = 4279522057) 188 mg/dL 70-110 H Lab Interpretation (test code = Abnormal 79363-7) [facility] METABOLIC PANEL (NA, K, CL, CO2, GLUCOSE, BUN, CREATININE, CA)2021-12-22 11:48:23 Test Item Value Reference Range Interpretation Comments NA (test code = 137 mmol/L 135-145 0827706658) K (test code = 4.3 mmol/L 3.5-5.0 1917455508) CL (test code = 105 mmol/L 98-108 3167059680) CO2 TOTAL (test code = 23 mmol/L 23-31 4116023828) AGAP (test code = 2-16 1286954551) BUN (test code = 19 mg/dL 7-23 8567657669) GLUCOSE (test code = 243 mg/dL 70-110 H 7786906996) CREATININE (test code = 0.50 mg/dL 0.60-1.25 L 7044898065) CALCIUM (test code = 8.9 mg/dL 8.6-10.6 9348392771) eGFR (test code = mL/min/1.73m2 1220881105) ARPITA (test code = ARPITA) Association of [...] tests). Lab Interpretation Abnormal (test code = 01353-5) [facility] 11:48:23 Test Item Value Reference Range Interpretation Comments MAGNESIUM (test code = 9875781881) 2.1 mg/dL 1.7-2.4 Lab Interpretation (test code = Normal 09318-2) [facility] WITH [id number] 11:09:44 Test Item Value Reference Range Interpretation Comments WBC (test code = See_Comment [Automated message] 6690-2) The system [employer] generated this result transmitted ref erence range: 4.20 - 1 0.70 10*3/?L. The re ference range was not u sed to interpret this result as normal/abnor mal. RBC (test code = See_Comment [Automated message] 789-8) The system [employer] generated this result transmitted ref erence range: [...] RDW-SD (test code 43.6 fL 38.5-51.6 = 77254-6) RDW-CV (test code 13.7 % 12.1-15.4 = 788-0) PLT (test code = See_Comment [Automated message] 777-3) The system [employer] generated this result transmitted ref erence range: 150 - 32 8 10*3/?L. The re ference range was not u sed to interpret this result as normal/abnor mal. MPV (test code = 11.0 fL 9.8-13.0 76199-0) NRBC/100 WBC (test See_Comment [Automat ed message] code = 9986058835) The syste m which generated this result transmitted ref erence range: 0.0 - 10 .0 /100 WBCs. The refer ence range was not u sed to interpret this result as normal/abnor mal. NRBC x10^3 (test <0.01 See_Comment [Automated message] code = 7822408994) The syste m which generated this result transmitted ref erence range: 10*3/?L. The reference range was not used to interpr et this result as normal/abnormal . GRAN MAT (NEUT) % 57.9 % (test code = 770-8) IMM GRAN % (test 0.60 % code = 5308211530) LYMPH % (test code 30.7 % = 736-9) MONO % (test code 8.5 % = 5905-5) EOS % (test code = 2.0 % 713-8) BASO % (test code 0.3 % = 706-2) GRAN MAT 5.14 10*3/uL 1.99-6.95 x10^3(ANC) (test code = 7074674416) IMM GRAN x10^3 0.05 10*3/uL 0.00-0.06 (test code = 2966458054) LYMPH x10^3 (test 2.73 10*3/uL 1.09-3.23 code = 731-0) MONO x10^3 (test 0.76 10*3/uL 0.36-1.02 code = 742-7) EOS x10^3 (test 0.18 10*3/uL 0.06-0.53 code = 711-2) BASO x10^3 (test 0.03 10*3/uL 0.01-0.09 code = 704-7) General acute hospital GLUCOSE (AUTOMATED)2021-12-22 10:34:14 Test Item Value Reference Range Interpretation Comments POCT GLU (test code = 1896274449) 230 mg/dL 70-110 H Lab Interpretation (test code = Abnormal 99586-7) General acute hospital GLUCOSE (AUTOMATED)2021-12-22 05:56:50 Test Item Value Reference Range Interpretation Comments POCT GLU (test code = 5766638075) 314 mg/dL 70-110 H Lab Interpretation (test code = Abnormal 19435-7) General acute hospital GLUCOSE (AUTOMATED)2021-12-22 04:40:22 Test Item Value Reference Range Interpretation Comments POCT GLU (test code = 1678895060) 324 mg/dL 70-110 H Lab Interpretation (test code = Abnormal 64876-8) General acute hospital GLUCOSE (AUTOMATED)2021-12-22 02:37:33 Test Item Value Reference Range Interpretation Comments POCT GLU (test code = 8858143266) 296 mg/dL 70-110 H Lab Interpretation (test code = Abnormal 75275-6) General acute hospital GLUCOSE (AUTOMATED)2021-12-22 01:05:02 Test Item Value Reference Range Interpretation Comments POCT GLU (test code = 7597652072) 319 mg/dL 70-110 H Lab Interpretation (test code = Abnormal 41879-9) General acute hospital GLUCOSE (AUTOMATED)2021-12-21 21:59:09 Test Item Value Reference Range Interpretation Comments POCT GLU (test code = 9403519232) 257 mg/dL 70-110 H Lab Interpretation (test code = Abnormal 94812-6) General acute hospital GLUCOSE (AUTOMATED)2021-12-21 17:21:41 Test Item Value Reference Range Interpretation Comments POCT GLU (test code = 5839662027) 214 mg/dL 70-110 H Lab Interpretation (test code = Abnormal 66458-1) General acute hospital GLUCOSE (AUTOMATED)2021-12-21 13:04:04 Test Item Value Reference Range Interpretation Comments POCT GLU (test code = 7351999898) 234 mg/dL 70-110 H Lab Interpretation (test code = Abnormal 70884-7) [facility] METABOLIC PANEL (NA, K, CL, CO2, GLUCOSE, BUN, CREATININE, CA)2021-12-21 12:23:33 Test Item Value Reference Range Interpretation Comments NA (test code = 136 mmol/L 135-145 4746256524) K (test code = 4.1 mmol/L 3.5-5.0 7749071960) CL (test code = 109 mmol/L 98-108 H 6322179763) CO2 TOTAL (test code = 20 mmol/L 23-31 L 7829570022) AGAP (test code = 2-16 0788895853) BUN (test code = 16 mg/dL 7- 3337333082) GLUCOSE (test code = 281 mg/dL 70-110 H 4314213576) CREATININE (test code = 0.50 mg/dL 0.60-1.25 L 0006478972) CALCIUM (test code = 8.3 mg/dL 8.6-10.6 L 1923285290) eGFR (test code = mL/min/1.73m2 1821861123) ARPITA (test code = ARPITA) Association of [...] tests). Lab Interpretation Abnormal (test code = 80449-0) [facility] 12:23:33 Test Item Value Reference Range Interpretation Comments MAGNESIUM (test code = 0474427710) 1.6 mg/dL 1.7-2.4 L Lab Interpretation (test code = Abnormal 44667-7) [facility] 12:23:13 Test Item Value Reference Range Interpretation Comments PHOSPHORUS (test code = 6294947312) 3.2 mg/dL 2.5-5.0 Lab Interpretation (test code = Normal 21119-0) [facility] (A1C)2021-12-21 10:04:37 Test Item Value Reference Range Interpretation Comments HGB A1C (test code = 9.6 % 4.0-5.7 H 4548-4) ARPITA (test code = ARPITA) Reference RangesNormal: <5.7%Prediabetes: 5.7 - 6.4%Diabetes: > 6.5% Lab Interpretation (test Abnormal code = 35282-1) [facility] WITH [id number] 09:29:41 Test Item Value Reference Range Interpretation Comments WBC (test code = See_Comment [Automated message] 0190-2) The system [employer] generated this result transmitted ref erence range: 4.20 - 1 0.70 10*3/?L. The re ference range was not u sed to interpret this result as normal/abnor mal. RBC (test code = See_Comment [Automated message] 529-8) The system [employer] generated this result transmitted ref erence range: [...] RDW-SD (test code 42.5 fL 38.5-51.6 = 41682-0) RDW-CV (test code 13.5 % 12.1-15.4 = 788-0) PLT (test code = See_Comment [Automated message] 667-3) The system [employer] generated this result transmitted ref erence range: 150 - 32 8 10*3/?L. The re ference range was not u sed to interpret this result as normal/abnor mal. MPV (test code = 10.8 fL 9.8-13.0 36729-1) NRBC/100 WBC (test See_Comment [Automat ed message] code = 0598543993) The syste m which generated this result transmitted ref erence range: 0.0 - 10 .0 /100 WBCs. The refer ence range was not u sed to interpret this result as normal/abnor mal. NRBC x10^3 (test <0.01 See_Comment [Automated message] code = 8243717349) The syste m which generated this result transmitted ref erence range: 10*3/?L. The reference range was not used to interpr et this result as normal/abnormal . GRAN MAT (NEUT) % 58.6 % (test code = 770-8) IMM GRAN % (test 0.50 % code = 5913038953) LYMPH % (test code 31.3 % = 736-9) MONO % (test code 6.9 % = 5905-5) EOS % (test code = 2.4 % 713-8) BASO % (test code 0.3 % = 706-2) GRAN MAT 5.39 10*3/uL 1.99-6.95 x10^3(ANC) (test code = 6158432101) IMM GRAN x10^3 0.05 10*3/uL 0.00-0.06 (test code = 1055548591) LYMPH x10^3 (test 2.89 10*3/uL 1.09-3.23 code = 731-0) MONO x10^3 (test 0.64 10*3/uL 0.36-1.02 code = 742-7) EOS x10^3 (test 0.22 10*3/uL 0.06-0.53 code = 711-2) BASO x10^3 (test 0.03 10*3/uL 0.01-0.09 code = 704-7) [facility] acute hospital GLUCOSE (AUTOMATED)2021-12-21 09:06:33 Test Item Value Reference Range Interpretation Comments POCT GLU (test code = 2733297187) 206 mg/dL 70-110 H Lab Interpretation (test code = Abnormal 72130-2) General acute hospital GLUCOSE (AUTOMATED)2021-12-21 04:38:41 Test Item Value Reference Range Interpretation Comments POCT GLU (test code = 6605269629) 272 mg/dL 70-110 H Lab Interpretation (test code = Abnormal 35945-1) General acute hospital GLUCOSE (AUTOMATED)2021-12-21 01:14:47 Test Item Value Reference Range Interpretation Comments POCT GLU (test code = 7897424877) 256 mg/dL 70-110 H Lab Interpretation (test code = Abnormal 91644-0) General acute hospital GLUCOSE (AUTOMATED)2021-12-20 21:11:19 Test Item Value Reference Range Interpretation Comments POCT GLU (test code = 6163347227) 254 mg/dL 70-110 H Lab Interpretation (test code = Abnormal 91934-1) General acute hospital GLUCOSE (AUTOMATED)2021-12-20 17:10:33 Test Item Value Reference Range Interpretation Comments POCT GLU (test code = 2632284394) 350 mg/dL 70-110 H Lab Interpretation (test code = Abnormal 96355-6) General acute hospital GLUCOSE (AUTOMATED)2021-12-20 12:50:18 Test Item Value Reference Range Interpretation Comments POCT GLU (test code = 3513586448) 269 mg/dL 70-110 H Lab Interpretation (test code = Abnormal 17525-6) [facility] Metabolic Panel (NA, K, CL, CO2, GLUCOSE, BUN, CREATININE, CA)2021-12-20 10:18:27 Test Item Value Reference Range Interpretation Comments NA (test code = 137 mmol/L 135-145 0814395937) K (test code = 4.0 mmol/L 3.5-5.0 3983693559) CL (test code = 108 mmol/L 98-108 4300771868) CO2 TOTAL (test code = 23 mmol/L 23-31 9420038926) AGAP (test code = 2-16 0367057880) BUN (test code = 16 mg/dL 7-23 2051868490) GLUCOSE (test code = 386 mg/dL 70-110 H [id number]) CREATININE (test code = 0.70 mg/dL 0.60-1.25 5558056680) CALCIUM (test code = 8.6 mg/dL 8.6-10.6 0710543472) eGFR (test code = mL/min/1.73m2 6682508902) ARPITA (test code = ARPITA) Association of [...] tests). Lab Interpretation Abnormal (test code = 15606-2) [facility] with [id number] 10:03:31 Test Item Value Reference Range Interpretation Comments WBC (test code = See_Comment [Automated message] 6690-2) The system [employer] generated this result transmitted ref erence range: 4.20 - 1 0.70 10*3/?L. The re ference range was not u sed to interpret this result as normal/abnor mal. RBC (test code = See_Comment [Automated message] 789-8) The system whic h generated this result [...] RDW-SD (test code 42.5 fL 38.5-51.6 = 34240-5) RDW-CV (test code 13.5 % 12.1-15.4 = 788-0) PLT (test code = See_Comment [Automated message] 777-3) The system [employer] h generated this result transmitted ref erence range: 150 - 32 8 10*3/?L. The re ference range was not u sed to interpret this result as normal/abnor mal. MPV (test code = 11.2 fL 9.8-13.0 62728-5) NRBC/100 WBC (test See_Comment [Automat ed message] code = 5974538340) The syste m which generated this result transmitted ref erence range: 0.0 - 10 .0 /100 WBCs. The refer ence range was not u sed to interpret this result as normal/abnor mal. NRBC x10^3 (test <0.01 See_Comment [Automated message] code = 3034198046) The syste m which generated this result transmitted ref erence range: 10*3/?L. The reference range was not used to interpr et this result as normal/abnormal . GRAN MAT (NEUT) % 63.5 % (test code = 770-8) IMM GRAN % (test 0.30 % code = 5952188762) LYMPH % (test code 24.8 % = 736-9) MONO % (test code 8.7 % = 5905-5) EOS % (test code = 2.5 % 713-8) BASO % (test code 0.2 % = 706-2) GRAN MAT 6.05 10*3/uL 1.99-6.95 x10^3(ANC) (test code = 3320821357) IMM GRAN x10^3 0.03 10*3/uL 0.00-0.06 (test code = 0803734055) LYMPH x10^3 (test 2.37 10*3/uL 1.09-3.23 code = 731-0) MONO x10^3 (test 0.83 10*3/uL 0.36-1.02 code = 742-7) EOS x10^3 (test 0.24 10*3/uL 0.06-0.53 code = 711-2) BASO x10^3 (test <0.03 0.01-0.09 code = 704-7) [facility] hospital GLUCOSE (AUTOMATED)2021-12-20 09:00:15 Test Item Value Reference Range Interpretation Comments POCT GLU (test code = 2995004381) 402 mg/dL 70-110 H Lab Interpretation (test code = Abnormal 28576-3) General acute hospital GLUCOSE (AUTOMATED)2021-12-20 04:54:36 Test Item Value Reference Range Interpretation Comments POCT GLU (test code = 3782972375) 368 mg/dL 70-110 H Lab Interpretation (test code = Abnormal 86785-2) General acute hospital GLUCOSE (AUTOMATED)2021-12-20 03:13:40 Test Item Value Reference Range Interpretation Comments POCT GLU (test code = 3539074562) 438 mg/dL 70-110 H Lab Interpretation (test code = Abnormal 95506-1) [facility]-20 01:05:39 Test Item Value Reference Range Interpretation Comments NA (test code = 133 mmol/L 135-145 L 8463715923) K (test code = 4.7 mmol/L 3.5-5.0 5149576574) CL (test code = 99 mmol/L 98-108 5680295743) CO2 TOTAL (test code = 21 mmol/L 23-31 L 0796615336) AGAP (test code = 2-16 7044769752) BUN (test code = 18 mg/dL 7-23 4606639272) GLUCOSE (test code = 660 mg/dL 70-110 HH 0298795519) CREATININE (test code = 0.64 mg/dL 0.60-1.25 4665413898) TOTAL BILI (test code = 1.0 mg/dL 0.1-1.1 4994445601) CALCIUM (test code = 9.7 mg/dL 8.6-10.6 7418784241) T PROTEIN (test code = 7.9 g/dL 6.3-8.2 5716163179) ALBUMIN (test code = 4.4 g/dL 3.5-5.0 1587463685) ALK PHOS (test code = 143 U/L 34-122 H 2687257209) ALTv (test code = 47 U/L -50 1741-6) AST(SGOT) (test code = 30 U/L 13-40 4277681174) eGFR (test code = mL/min/1.73m2 5471373372) ARPITA (test code = ARPITA) Association of [...] tests). Lab Interpretation Abnormal (test code = 17178-3) [facility]15 Test Item Value Reference Range Interpretation Comments LIPASE (test code = 8133286009) 255 U/L 0-220 H Lab Interpretation (test code = Abnormal 63570-2) [facility] WITH [id number] 00:38:14 Test Item Value Reference Range Interpretation [...] RDW-SD (test code = 43.8 fL 38.5-51.6 14346-7) RDW-CV (test code = 13.6 % 12.1-15.4 788-0) PLT (test code = See_Comment [Automated 777-3) message] The sy stem which generated this result transmitted reference range : 150 - 328 10*3/ ?L. The reference r boubacar was not used to interpret this result as normal/abnormal . MPV (test code = 11.4 fL 9.8-13.0 89122-2) NRBC/100 WBC (test See_Comment [Automat ed code = 7900883100) message] The system which generated this result transmitted reference range : 0.0 - 10.0 /100 WBCs. The refer ence range was not u sed to interpret th is result as normal/abnormal . NRBC x10^3 (test code <0.01 See_Comment [Auto mated = 5691744169) message] The s ystem which generated this result transmitted reference range : 10*3/?L. The reference range was not used to interpret this result as normal/abnormal . GRAN MAT (NEUT) % 76.0 % (test code = 770-8) IMM GRAN % (test code 0.50 % = 6655976515) LYMPH % (test code = 15.2 % 736-9) MONO % (test code = 6.5 % 5905-5) EOS % (test code = 1.6 % 713-8) BASO % (test code = 0.2 % 706-2) GRAN MAT x10^3(ANC) 8.55 10*3/uL 1.99-6.95 H (test code = 0164066543) IMM GRAN x10^3 (test 0.06 10*3/uL 0.00-0.06 code = 4968132159) LYMPH x10^3 (test code 1.71 10*3/uL 1.09-3.23 = 731-0) MONO x10^3 (test code 0.73 10*3/uL 0.36-1.02 = 742-7) EOS x10^3 (test code = 0.18 10*3/uL 0.06-0.53 711-2) BASO x10^3 (test code <0.03 0.01-0.09 = 704-7) Lab Interpretation Abnormal (test code = 53527-7) [facility] 18:32:39 Test Item Value Reference Range Interpretation Comments MAGNESIUM (test code = 2030533189) 1.7 mg/dL 1.7-2.4 Lab Interpretation (test code = Normal 73691-8) [facility] METABOLIC PANEL (NA, K, CL, CO2, GLUCOSE, BUN, CREATININE, CA)2021-12-18 18:32:38 Test Item Value Reference Range Interpretation Comments NA (test code = 137 mmol/L 135-145 9657669557) K (test code = 4.3 mmol/L 3.5-5.0 9762066409) CL (test code = 105 mmol/L 98-108 1829385758) CO2 TOTAL (test code = 23 mmol/L 23-31 1975237814) AGAP (test code = 2-16 8572802111) BUN (test code = 17 mg/dL 7-23 0861041212) GLUCOSE (test code = 317 mg/dL 70-110 H 8627679144) CREATININE (test code = 0.57 mg/dL 0.60-1.25 L 5659436192) CALCIUM (test code = 9.3 mg/dL 8.6-10.6 7922100211) eGFR (test code = mL/min/1.73m2 7770795894) ARPITA (test code = ARPITA) Association of [...] tests). Lab Interpretation Abnormal (test code = 31203-4) [facility] WITH [id number] 18:10:18 Test Item Value Reference Range Interpretation Comments WBC (test code = See_Comment [Automated message] 6690-2) The system [employer] generated this result transmitted ref erence range: 4.20 - 1 0.70 10*3/?L. The re ference range was not u sed to interpret this result as normal/abnor mal. RBC (test code = See_Comment [Automated message] 789-8) The system [employer] generated this result transmitted ref erence range: [...] RDW-SD (test code 44.4 fL 38.5-51.6 = 14457-4) RDW-CV (test code 13.8 % 12.1-15.4 = 788-0) PLT (test code = See_Comment [Automated message] 777-3) The system [employer] generated this result transmitted ref erence range: 150 - 32 8 10*3/?L. The re ference range was not u sed to interpret this result as normal/abnor mal. MPV (test code = 10.9 fL 9.8-13.0 98749-1) NRBC/100 WBC (test See_Comment [Automat ed message] code = 5481668421) The [employer] which generated this result transmitted ref erence range: 0.0 - 10 .0 /100 WBCs. The refer ence range was not u sed to interpret this result as normal/abnor mal. NRBC x10^3 (test <0.01 See_Comment [Automated message] code = 6242620560) The syste m which generated this result transmitted ref erence range: 10*3/?L. The reference range was not used to interpr et this result as normal/abnormal . GRAN MAT (NEUT) % 53.4 % (test code = 770-8) IMM GRAN % (test 0.30 % code = 4140147531) LYMPH % (test code 35.3 % = 736-9) MONO % (test code 7.4 % = 5905-5) EOS % (test code = 3.3 % 713-8) BASO % (test code 0.3 % = 706-2) GRAN MAT 3.59 10*3/uL 1.99-6.95 x10^3(ANC) (test code = 8787295621) IMM GRAN x10^3 <0.03 0.00-0.06 (test code = 6912606285) LYMPH x10^3 (test 2.37 10*3/uL 1.09-3.23 code = 731-0) MONO x10^3 (test 0.50 10*3/uL 0.36-1.02 code = 742-7) EOS x10^3 (test 0.22 10*3/uL 0.06-0.53 code = 711-2) BASO x10^3 (test <0.03 0.01-0.09 code = 704-7) [facility] acute hospital GLUCOSE (AUTOMATED)2021-12-18 16:50:23 Test Item Value Reference Range Interpretation Comments POCT GLU (test code = 0120853793) 304 mg/dL 70-110 H Lab Interpretation (test code = Abnormal 86650-0) General acute hospital GLUCOSE (AUTOMATED)2021-12-18 12:58:13 Test Item Value Reference Range Interpretation Comments POCT GLU (test code = 1610358777) 364 mg/dL 70-110 H Lab Interpretation (test code = Abnormal 71316-8) General acute hospital GLUCOSE (AUTOMATED)2021-12-18 09:42:05 Test Item Value Reference Range Interpretation Comments POCT GLU (test code = 3181235337) 369 mg/dL 70-110 H Lab Interpretation (test code = Abnormal 83663-9) General acute hospital GLUCOSE (AUTOMATED)2021-12-18 05:09:33 Test Item Value Reference Range Interpretation Comments POCT GLU (test code = 8167537557) 332 mg/dL 70-110 H Lab Interpretation (test code = Abnormal 71562-4) General acute hospital GLUCOSE (AUTOMATED)2021-12-18 01:27:31 Test Item Value Reference Range Interpretation Comments POCT GLU (test code = 5960225713) 349 mg/dL 70-110 H Lab Interpretation (test code = Abnormal 69452-9) General acute hospital GLUCOSE (AUTOMATED)2021-12-17 21:42:26 Test Item Value Reference Range Interpretation Comments POCT GLU (test code = 9345622563) 372 mg/dL 70-110 H Lab Interpretation (test code = Abnormal 96523-0) General acute hospital GLUCOSE (AUTOMATED)2021-12-17 17:17:16 Test Item Value Reference Range Interpretation Comments POCT GLU (test code = 1010431070) 329 mg/dL 70-110 H Lab Interpretation (test code = Abnormal 22067-2) General acute hospital GLUCOSE (AUTOMATED)2021-12-17 14:09:34 Test Item Value Reference Range Interpretation Comments POCT GLU (test code = 7997103503) 350 mg/dL 70-110 H Lab Interpretation (test code = Abnormal 66262-9) General acute hospital GLUCOSE (AUTOMATED)2021-12-17 09:59:20 Test Item Value Reference Range Interpretation Comments POCT GLU (test code = 3000160687) 342 mg/dL 70-110 H Lab Interpretation (test code = Abnormal 37857-5) General acute hospital GLUCOSE (AUTOMATED)2021-12-17 01:46:05 Test Item Value Reference Range Interpretation Comments POCT GLU (test code = 5189804235) 318 mg/dL 70-110 H Lab Interpretation (test code = Abnormal 65930-4) General acute hospital GLUCOSE (AUTOMATED)2021-12-16 21:25:33 Test Item Value Reference Range Interpretation Comments POCT GLU (test code = 3841983960) 212 mg/dL 70-110 H Lab Interpretation (test code = Abnormal 36044-7) General acute hospital GLUCOSE (AUTOMATED)2021-12-16 16:27:52 Test Item Value Reference Range Interpretation Comments POCT GLU (test code = 3106805909) 226 mg/dL 70-110 H Lab Interpretation (test code = Abnormal 43194-2) General acute hospital GLUCOSE (AUTOMATED)2021-12-16 15:37:46 Test Item Value Reference Range Interpretation Comments POCT GLU (test code = 1112537260) 204 mg/dL 70-110 H Lab Interpretation (test code = Abnormal 67095-9) General acute hospital GLUCOSE (AUTOMATED)2021-12-16 14:39:25 Test Item Value Reference Range Interpretation Comments POCT GLU (test code = 2862123632) 185 mg/dL 70-110 H Lab Interpretation (test code = Abnormal 33128-2) [facility] Metabolic Panel (Na, K, Cl, CO2, Glucose, BUN, Creatinine, Ca)2021-12-16 14:07:03 Test Item Value Reference Range Interpretation Comments NA (test code = 137 mmol/L 135-145 3791939244) K (test code = 4.6 mmol/L 3.5-5.0 5864334527) CL (test code = 111 mmol/L 98-108 H 3056583471) CO2 TOTAL (test code = 22 mmol/L 23-31 L 9968800035) AGAP (test code = 2-16 1163160072) BUN (test code = 12 mg/dL 7-23 6791849385) GLUCOSE (test code = 181 mg/dL 70-110 H 3189846784) CREATININE (test code = 0.70 mg/dL 0.60-1.25 7843536953) CALCIUM (test code = 8.3 mg/dL 8.6-10.6 L 5740047683) eGFR (test code = mL/min/1.73m2 2163627053) ARPITA (test code = ARPITA) Association of [...] tests). Lab Interpretation Abnormal (test code = 67828-0) General acute hospital GLUCOSE (AUTOMATED)2021-12-16 13:45:48 Test Item Value Reference Range Interpretation Comments POCT GLU (test code = 2448046148) 170 mg/dL 70-110 H Lab Interpretation (test code = Abnormal 04436-8) General acute hospital GLUCOSE (AUTOMATED)2021-12-16 12:28:12 Test Item Value Reference Range Interpretation Comments POCT GLU (test code = 8500481073) 109 mg/dL 70-110 Lab Interpretation (test code = Normal 45665-5) General acute hospital GLUCOSE (AUTOMATED)2021-12-16 11:25:37 Test Item Value Reference Range Interpretation Comments POCT GLU (test code = 2034018270) 134 mg/dL 70-110 H Lab Interpretation (test code = Abnormal 33753-1) [facility] (Na, K, Cl, CO2, Glucose, BUN, Creatinine, Ca)2021-12-16 10:50:17 Test Item Value Reference Range Interpretation Comments NA (test code = 138 mmol/L 135-145 3996960970) K (test code = 5.1 mmol/L 3.5-5.0 H Slight 1949638415) hemolysis CL (test code = 110 mmol/L 98-108 H 7740781220) CO2 TOTAL (test code 23 mmol/L 23-31 = 0290216744) AGAP (test code = 2-16 5586745867) BUN (test code = 13 mg/dL 7-23 Slight 7561531670) hemolysis GLUCOSE (test code = 131 mg/dL 70-110 H 9620733484) CREATININE (test code 0.73 mg/dL 0.60-1.25 = 9887660178) CALCIUM (test code = 8.9 mg/dL 8.6-10.6 3562533151) eGFR (test code = mL/min/1.73m2 1997037476) ARPITA (test code = ARPITA) Association of [...] tests). Lab Interpretation Abnormal (test code = 19766-6) General acute hospital GLUCOSE (AUTOMATED)2021-12-16 10:35:11 Test Item Value Reference Range Interpretation Comments POCT GLU (test code = 5337489259) 125 mg/dL 70-110 H Lab Interpretation (test code = Abnormal 65546-5) General acute hospital GLUCOSE (AUTOMATED)2021-12-16 09:31:05 Test Item Value Reference Range Interpretation Comments POCT GLU (test code = 4132845616) 137 mg/dL 70-110 H Lab Interpretation (test code = Abnormal 09077-1) General acute hospital GLUCOSE (AUTOMATED)2021-12-16 08:28:48 Test Item Value Reference Range Interpretation Comments POCT GLU (test code = 9278145550) 168 mg/dL 70-110 H Lab Interpretation (test code = Abnormal 15665-8) General acute hospital GLUCOSE (AUTOMATED)2021-12-16 07:26:17 Test Item Value Reference Range Interpretation Comments POCT GLU (test code = 2860145282) 165 mg/dL 70-110 H Lab Interpretation (test code = Abnormal 57551-0) [facility] Metabolic Panel (Na, K, Cl, CO2, Glucose, BUN, Creatinine, Ca)2021-12-16 07:18:59 Test Item Value Reference Range Interpretation Comments NA (test code = 136 mmol/L 135-145 2147910566) K (test code = 5.1 mmol/L 3.5-5.0 H 6875162401) CL (test code = 108 mmol/L 98-108 8366177520) CO2 TOTAL (test code = 24 mmol/L 23-31 9292893762) AGAP (test code = 2-16 8004991259) BUN (test code = 14 mg/dL 7-23 9691585318) GLUCOSE (test code = 202 mg/dL 70-110 H 5045578503) CREATININE (test code = 0.79 mg/dL 0.60-1.25 5971239413) CALCIUM (test code = 8.9 mg/dL 8.6-10.6 0171297627) eGFR (test code = mL/min/1.73m2 2498830873) ARPITA (test code = ARPITA) Association of [...] tests). Lab Interpretation Abnormal (test code = 34912-8) [facility] VVIHPWY-IPCGEQZU9835-09-04 06:57:08 Test Item Value Reference Range Interpretation Comments BOH (test code = <0.1 mmol/L 1402615093) ARPITA (test code = Normal Ranges: ? ? ARPITA) Nonfasting ? Less than 0.1 mmol/L ? ? Overnight Fast ? ? ? Less than 0.4 mmol/L ? ? Fasting (1-2 weeks) ?6-8 mmol/L Test developed and characteristics determined by [facility] Laboratory Services. General acute hospital GLUCOSE (AUTOMATED)2021-12-16 06:24:07 Test Item Value Reference Range Interpretation Comments POCT GLU (test code = 7108471200) 212 mg/dL 70-110 H Lab Interpretation (test code = Abnormal 87649-5) General acute hospital GLUCOSE (AUTOMATED)2021-12-16 05:28:19 Test Item Value Reference Range Interpretation Comments POCT GLU (test code = 2715859613) 239 mg/dL 70-110 H Lab Interpretation (test code = Abnormal 96069-3) General acute hospital GLUCOSE (AUTOMATED)2021-12-16 04:29:31 Test Item Value Reference Range Interpretation Comments POCT GLU (test code = 9252413182) 251 mg/dL 70-110 H Lab Interpretation (test code = Abnormal 29950-2) [facility] Metabolic Panel (Na, K, Cl, CO2, Glucose, BUN, Creatinine, Ca)2021-12-16 03:49:55 Test Item Value Reference Range Interpretation Comments NA (test code = 141 mmol/L 135-145 8055022057) K (test code = 4.2 mmol/L 3.5-5.0 4516679976) CL (test code = 108 mmol/L 98-108 3738984913) CO2 TOTAL (test code = 26 mmol/L 23-31 8814370769) AGAP (test code = 2-16 5215345580) BUN (test code = 14 mg/dL 7-23 5261795726) GLUCOSE (test code = 164 mg/dL 70-110 H 5433320609) CREATININE (test code = 0.84 mg/dL 0.60-1.25 6744555213) CALCIUM (test code = 9.3 mg/dL 8.6-10.6 7659053698) eGFR (test code = mL/min/1.73m2 0553927602) ARPITA (test code = ARPITA) Association of [...] tests). Lab Interpretation Abnormal (test code = 55847-2) General acute hospital GLUCOSE (AUTOMATED)2021-12-16 03:20:15 Test Item Value Reference Range Interpretation Comments POCT GLU (test code = 3427595774) 174 mg/dL 70-110 H Lab Interpretation (test code = Abnormal 31832-7) General acute hospital GLUCOSE (AUTOMATED)2021-12-16 02:25:54 Test Item Value Reference Range Interpretation Comments POCT GLU (test code = 6382783953) 158 mg/dL 70-110 H Lab Interpretation (test code = Abnormal 48725-9) General acute hospital GLUCOSE (AUTOMATED)2021-12-16 01:37:09 Test Item Value Reference Range Interpretation Comments POCT GLU (test code = 2396696413) 219 mg/dL 70-110 H Lab Interpretation (test code = Abnormal 94437-9) General acute hospital GLUCOSE (AUTOMATED)2021-12-16 00:19:48 Test Item Value Reference Range Interpretation Comments POCT GLU (test code = 1911322793) 345 mg/dL 70-110 H Lab Interpretation (test code = Abnormal 37220-0) General acute hospital GLUCOSE (AUTOMATED)2021-12-15 22:59:57 Test Item Value Reference Range Interpretation Comments POCT GLU (test code = 7393611881) 318 mg/dL 70-110 H Lab Interpretation (test code = Abnormal 79735-6) [facility] (Na, K, Cl, CO2, Glucose, BUN, Creatinine, Ca)2021-12-15 22:41:00 Test Item Value Reference Range Interpretation Comments NA (test code = 140 mmol/L 135-145 1768766779) K (test code = 3.1 mmol/L 3.5-5.0 L 2192878145) CL (test code = 116 mmol/L 98-108 H 1266862238) CO2 TOTAL (test code = 21 mmol/L 23-31 L 9424834082) AGAP (test code = 2-16 3797277203) BUN (test code = 12 mg/dL 7-23 8847678211) GLUCOSE (test code = 281 mg/dL 70-110 H 2265137931) CREATININE (test code = 0.62 mg/dL 0.60-1.25 5987346478) CALCIUM (test code = 7.2 mg/dL 8.6-10.6 L 4129279929) eGFR (test code = mL/min/1.73m2 2804511950) ARPITA (test code = ARPITA) Association of [...] tests). Lab Interpretation Abnormal (test code = 00558-1) General acute hospital GLUCOSE (AUTOMATED)2021-12-15 21:53:29 Test Item Value Reference Range Interpretation Comments POCT GLU (test code = 9459929183) 368 mg/dL 70-110 H Lab Interpretation (test code = Abnormal 33891-6) General acute hospital GLUCOSE (AUTOMATED)2021-12-15 20:41:51 Test Item Value Reference Range Interpretation Comments POCT GLU (test code = 1672509620) 458 mg/dL 70-110 HH Lab Interpretation (test code = Abnormal 46984-4) General acute hospital GLUCOSE (AUTOMATED)2021-12-15 19:00:13 Test Item Value Reference Range Interpretation Comments POCT GLU (test code = 1466516368) 369 mg/dL 70-110 H Lab Interpretation (test code = Abnormal 53996-1) [facility] Metabolic Panel (Na, K, Cl, CO2, Glucose, BUN, Creatinine, Ca)2021-12-15 18:32:29 Test Item Value Reference Range Interpretation Comments NA (test code = 145 mmol/L 135-145 1620216417) K (test code = 4.8 mmol/L 3.5-5.0 Slight 0963402011) hemolysis CL (test code = 112 mmol/L 98-108 H 5178850869) CO2 TOTAL (test code 26 mmol/L 23-31 = 2450552148) AGAP (test code = 2-16 9023645999) BUN (test code = 16 mg/dL 7-23 Slight 9964976424) hemolysis GLUCOSE (test code = 282 mg/dL 70-110 H 4720549509) CREATININE (test code 0.83 mg/dL 0.60-1.25 = 0986883464) CALCIUM (test code = 10.0 mg/dL 8.6-10.6 3017172811) eGFR (test code = mL/min/1.73m2 7112154887) ARPITA (test code = ARPITA) Association of [...] tests). Lab Interpretation Abnormal (test code = 44111-9) General acute hospital GLUCOSE (AUTOMATED)2021-12-15 17:45:09 Test Item Value Reference Range Interpretation Comments POCT GLU (test code = 2224073386) 284 mg/dL 70-110 H Lab Interpretation (test code = Abnormal 83328-7) [facility]rn[facility]50-58 16:41:13 Test Item Value Reference Range Interpretation Comments BOH (test code = 0.9 mmol/L 7736892315) ARPITA (test code = Normal Ranges: ? ? ARPITA) Nonfasting ? Less than 0.1 mmol/L ? ? Overnight Fast ? ? ? Less than 0.4 mmol/L ? ? Fasting (1-2 weeks) ?6-8 mmol/L Test developed and characteristics determined by [facility] Laboratory Services. General acute hospital GLUCOSE (AUTOMATED)2021-12-15 16:33:41 Test Item Value Reference Range Interpretation Comments POCT GLU (test code = 7407891418) 266 mg/dL 70-110 H Lab Interpretation (test code = Abnormal 37301-4) General acute hospital GLUCOSE (AUTOMATED)2021-12-15 15:30:41 Test Item Value Reference Range Interpretation Comments POCT GLU (test code = 2228965741) 294 mg/dL 70-110 H Lab Interpretation (test code = Abnormal 10670-2) General acute hospital GLUCOSE (AUTOMATED)2021-12-15 14:23:40 Test Item Value Reference Range Interpretation Comments POCT GLU (test code = 2725246448) 511 mg/dL 70-110 HH Lab Interpretation (test code = Abnormal 38099-9) [facility] WITHOUT EMOW3883-00-81 13:55:53 Test Item Value Reference Range Interpretation Comments WBC (test code = 6690-2) See_Comment H [A utomated message] The system [employer] generated this result transmit lester reference range : 4.20 - 10.70 10*3/?L. The reference range was not used to interpret this result as normal/abnormal . RBC (test code = 789-8) See_Comment H [Au tomated message] The system [employer] generated this result transmit lester reference range [...] See_Comment H [Au tomated message] The system [employer] generated this result transmit lester reference range : 150 - 328 10*3/?L. The reference range was not used to interpret this result as normal/abnormal . MPV (test code = 11.0 fL 9.8-13.0 36700-1) RDW-CV (test code = 14.2 % 12.1-15.4 788-0) RDW-SD (test code = 44.8 fL 38.5-51.6 10524-5) NRBC x10^3 (test code = <0.01 See_Comment [Au tomated message] 4516747311) The system [employer] generated this result transmit lester reference range : 10*3/?L. The reference range was not used to interpret this result as normal/abnormal . NRBC/100 WBC (test code See_Comment [Au tomated message] = 9873746636) The system [employer] generated this result transmit lester reference range : 0.0 - 10.0 /100 WBC s. The reference r boubacar was not used to interpret this result as normal/abnormal . IPF % (test code = 4687558480) Lab Interpretation (test Abnormal code = 47716-5) General acute hospital GLUCOSE (AUTOMATED)2021-12-15 13:34:21 Test Item Value Reference Range Interpretation Comments POCT GLU (test code = 0624734883) 538 mg/dL 70-110 HH Lab Interpretation (test code = Abnormal 69127-5) General acute hospital GLUCOSE (AUTOMATED)2021-12-15 13:30:43 Test Item Value Reference Range Interpretation Comments POCT GLU (test code = 8419332535) >600 70-110 HH Lab Interpretation (test code = Abnormal 72009-6) General acute hospital GLUCOSE (AUTOMATED)2021-12-15 13:30:43 Test Item Value Reference Range Interpretation Comments POCT GLU (test code = 3468649170) >600 70-110 HH Lab Interpretation (test code = Abnormal 25393-1) General acute hospital GLUCOSE (AUTOMATED)2021-12-15 13:30:43 Test Item Value Reference Range Interpretation Comments POCT GLU (test code = >600 70-110 HH Notifi ed Provider 0936466461) Lab Interpretation (test Abnormal code = 48468-3) General acute hospital GLUCOSE (AUTOMATED)2021-12-15 13:30:43 Test Item Value Reference Range Interpretation Comments POCT GLU (test code = 9648466091) >600 70-110 HH Lab Interpretation (test code = Abnormal 23625-8) General acute hospital GLUCOSE (AUTOMATED)2021-12-15 13:30:38 Test Item Value Reference Range Interpretation Comments POCT GLU (test code = 7644509238) >600 70-110 HH Lab Interpretation (test code = Abnormal 75434-7) General acute hospital GLUCOSE (AUTOMATED)2021-12-15 13:30:38 Test Item Value Reference Range Interpretation Comments POCT GLU (test code = 4150590231) >600 70-110 HH Lab Interpretation (test code = Abnormal 67826-5) [facility] [facility] CenterOsmolality [id number] 12:37:44 Test Item Value Reference Range Interpretation Comments OSMOLALITY (test code = See_Comment [Au tomated message] 2692-2) The system [employer] generated this result transmitted ref erence range: 278 - 30 5 mOsm/kg. The reference range was not used to int erpret this result as normal/abnormal . Lab Interpretation (test Abnormal code = 64674-2) [facility] Metabolic Panel (Na, K, Cl, CO2, Glucose, BUN, Creatinine, Ca)2021-12-15 12:23:35 Test Item Value Reference Range Interpretation Comments NA (test code = 145 mmol/L 135-145 8966445696) K (test code = 4.4 mmol/L 3.5-5.0 0026002271) CL (test code = 109 mmol/L 98-108 H 7963439405) CO2 TOTAL (test code = 21 mmol/L 23-31 L 1975632208) AGAP (test code = 2-16 2721398974) BUN (test code = 15 mg/dL 7-23 2491871129) GLUCOSE (test code = 753 mg/dL 70-110 HH 1614851125) CREATININE (test code = 0.79 mg/dL 0.60-1.25 8344611076) CALCIUM (test code = 10.9 mg/dL 8.6-10.6 H 9410018612) eGFR (test code = mL/min/1.73m2 6984241126) ARPITA (test code = ARPITA) Association of [...] tests). Lab Interpretation Abnormal (test code = 46023-7) [facility] CenterPO[facility]SE (AUTOMATED)2021-12-15 12:14:56 Test Item Value Reference Range Interpretation Comments POCT GLU (test code = 7840234571) 564 mg/dL 70-110 HH Lab Interpretation (test code = Abnormal 64629-9) [facility] CenterMagnesium [id number] 12:05:40 Test Item Value Reference Range Interpretation Comments MAGNESIUM (test code = 3668629775) 2.5 mg/dL 1.7-2.4 H Lab Interpretation (test code = Abnormal 88440-0) [facility] CenterMAGNESIUM2022-06-03 12:05:20 Test Item Value Reference Range Interpretation Comments MAGNESIUM (test code = 7865100056) 2.5 mg/dL 1.7-2.4 H Lab Interpretation (test code = Abnormal 36553-4) [facility] CenterPhosphorus [id number] 12:05:20 Test Item Value Reference Range Interpretation Comments PHOSPHORUS (test code = 2291470262) 6.2 mg/dL 2.5-5.0 H Lab Interpretation (test code = Abnormal 50674-7) [facility] CenterAC PANEL 21 + LACTIC [id number] 05:53:48 Test Item Value Reference Range Interpretation Comments PH (test code = 7.32-7.42 7989819103) PCO2 STEVO (test code See_Comment [Automa lester = 5245358462) message] The system which generated this result transmitted reference range : 41 - 51 mmHg. T he reference range was not used to interpret this result as normal/abnormal . PO2 STEVO (test code = See_Comment HH [Autom ated 1279691218) message] The system which generated this result transmitted reference range : 25 - 40 mmHg. T he reference range was not used to interpret this result as normal/abnormal . HCO3 STEVO (test code See_Comment L [Automa lester = 5489850247) message] The system which generated this result transmitted reference range : 24 - 28 mEq/L. The reference range was not used to interpr et this result as normal/abnormal . AC VBE(BEAKER) (test mEq/L code = 3079292001) THB STEVO (test code = 17.7 g/dL 13.5-18.0 7615804767) %O2HB STEVO (test code 93.8 % 52.0-63.0 H = 8388924182) %COHB STEVO (test code 2.1 % 0.0-1.5 H = 1120567659) %METHB STEVO (test 0.1 % 0.4-1.5 L code = 7949623948) VOL%O2 STEVO (test 23.3 % 6.0-12.0 H code = 2095870852) NA (test code = 142 mmol/L 135-145 9951155998) K+ (test code = 4.4 mmol/L 3.5-5.0 5871055847) AC CA IONZ (test 5.40 mg/dL 4.50-5.30 H code = 1821591939) GLUCOSE (test code = <20 70-110 LL 1140474677) LACTIC ACID (test 3.37 mmol/L 0.50-2.20 H code = 3130487009) ARPITA (test code = *ac gluc ARPITA) unmeasurable Lab Interpretation Abnormal (test code = 01293-4) [facility] CenterCOMP. METABOLIC PANEL (15192)2021-12-15 04:59:53 Test Item Value Reference Range Interpretation Comments NA (test code = 140 mmol/L 135-145 7291753163) K (test code = 4.8 mmol/L 3.5-5.0 3936960971) CL (test code = 100 mmol/L 98-108 9618495952) CO2 TOTAL (test code = 20 mmol/L 23-31 L 2772450680) AGAP (test code = 2-16 H 2187717089) BUN (test code = 14 mg/dL 7-23 2176730887) GLUCOSE (test code = 1083 mg/dL 70-110 HH 3988535063) CREATININE (test code = 0.80 mg/dL 0.60-1.25 9475861419) TOTAL BILI (test code = 1.0 mg/dL 0.1-1.4 4491236311) CALCIUM (test code = 12.0 mg/dL 8.6-10.6 H 2547454531) T PROTEIN (test code = 8.1 g/dL 6.3-8.2 1613641443) ALBUMIN (test code = 4.7 g/dL 3.5-5.0 2688440112) ALK PHOS (test code = 173 U/L 34-122 H 2043865965) ALTv (test code = 36 U/L 5-50 1742-6) AST(SGOT) (test code = 18 U/L 13-40 0109807442) eGFR (test code = mL/min/1.73m2 3844374146) ARPITA (test code = ARPITA) Association of [...] tests). Lab Interpretation Abnormal (test code = 74387-6) [facility] CenterFAROOQ [id number] 03:51:43 Test Item Value Reference Interpretation Comments Range TROPONIN I (test <0.012 See_Comment [Automated code = 9515090654) message] The system which generated this result [...] biotin. Lab Interpretation Normal (test code = 01870-3) [facility]-TERMINAL [id number] 03:48:23 Test Item Value Reference Range Interpretation Comments NT-proBNP (test code 71 pg/mL See_Comment [Autom ated = 0173105950) message] The system which generated this result transmitted reference range : <=125. The reference range was not used to interpret this result as normal/abnormal . ARPITA (test code = ARPITA) Biotin has been reported to cause a negative bias, interpret results relative to patient's use of biotin. Lab Interpretation Normal (test code = 68122-7) [facility] CenterN-TERMINAL [id number] 03:48:23 Test Item Value Reference Range Interpretation Comments NT-proBNP (test code 71 pg/mL See_Comment [Autom ated = 9564507108) message] The system which generated this result transmitted reference range : <=125. The reference range was not used to interpret this result as normal/abnormal . ARPITA (test code = ARPITA) Biotin has been reported to cause a negative bias, interpret results relative to patient's use of biotin. Lab Interpretation Normal (test code = 39843-8) [facility] CenterLIPASE2022-06-03 03:39:44 Test Item Value Reference Range Interpretation Comments LIPASE (test code = 8546450335) 120 U/L 0-220 Lab Interpretation (test code = Normal 48969-9) [facility] CenterACTIVATED PARTIAL THRMPLAS [id number] 03:38:23 Test Item Value Reference Range Interpretation Comments APTT Patient (test See_Comment [Automat ed code = 3173-2) message] The system which generated this result transmitted reference range : 23 - 38 Seconds . The reference range was not used to interpr et this result as normal/abnormal . ARPITA (test code = ARPITA) The [facility] patient population mean normal value for aPTT is 30 seconds. Lab Interpretation Normal (test code = 70836-6) [facility] CenterACTIVATED PARTIAL THRMPLAS [id number] 03:38:23 Test Item Value Reference Range Interpretation Comments APTT Patient (test See_Comment [Automat ed code = 3173-2) message] The system which generated this result transmitted reference range : 23 - 38 Seconds . The reference range was not used to interpr et this result as normal/abnormal . ARPITA (test code = ARPITA) The [facility] patient population mean normal value for aPTT is 30 seconds. Lab Interpretation Normal (test code = 77206-7) [facility] CenterPROTHROMBIN TIME / [id number] 03:36:22 Test Item Value Reference Range Interpretation [...] tions. Lab Interpretation (test Normal code = 19373-8) [facility] WITH [id number] 03:35:42 Test Item Value Reference Range Interpretation [...] RDW-SD (test code = 44.7 fL 38.5-51.6 55014-6) RDW-CV (test code = 14.2 % 12.1-15.4 788-0) PLT (test code = See_Comment H [Automated 777-3) message] The system which generated this result transmit lester reference range : 150 - 328 10*3/ ?L. The reference range was not u sed to interpret th is result as normal/abnormal . MPV (test code = 11.5 fL 9.8-13.0 86240-7) NRBC/100 WBC (test See_Comment [Automat ed code = 9021797689) message] The system which generated this result transmit lester reference range : 0.0 - 10.0 /100 WBCs. The reference range was not used to interpret this result as normal/abnormal . NRBC x10^3 (test code <0.01 See_Comment [Auto mated = 0676219099) message] The system which generated this result transmit lester reference range : 10*3/?L. The reference range was not used to interpret this result as normal/abnormal . GRAN MAT (NEUT) % 85.2 % (test code = 770-8) IMM GRAN % (test code 0.90 % = 3637011293) LYMPH % (test code = 5.9 % 736-9) MONO % (test code = 7.8 % 5905-5) EOS % (test code = 0.0 % 713-8) BASO % (test code = 0.2 % 706-2) GRAN MAT x10^3(ANC) 12.85 10*3/uL 1.99-6.95 H (test code = 2638139570) IMM GRAN x10^3 (test 0.13 10*3/uL 0.00-0.06 H code = 2738835051) LYMPH x10^3 (test code 0.89 10*3/uL 1.09-3.23 L = 731-0) MONO x10^3 (test code 1.17 10*3/uL 0.36-1.02 H = 742-7) EOS x10^3 (test code = <0.03 0.06-0.53 L 711-2) BASO x10^3 (test code 0.03 10*3/uL 0.01-0.09 = 704-7) Lab Interpretation Abnormal (test code = 32095-6) [facility] CenterLactic Acid Whole [id number] 03:22:23 Test Item Value Reference Range Interpretation Comments LACTIC ACID (test code = 4.52 mmol/L 0.50-2.20 H 6336120445) Lab Interpretation (test code = Abnormal 85881-6) [facility] CenterBAPSYCHIATRIC METABOLIC PANEL (NA, K, CL, CO2, GLUCOSE, BUN, CREATININE, CA)2021-11-28 11:13:09 Test Item Value Reference Range Interpretation Comments NA (test code = 137 mmol/L 135-145 0436013407) K (test code = 4.8 mmol/L 3.5-5.0 9387549663) CL (test code = 101 mmol/L 98-108 3700754609) CO2 TOTAL (test code = 24 mmol/L 23-31 8255707914) AGAP (test code = 2-16 2723527618) BUN (test code = 17 mg/dL 7-23 4806692074) GLUCOSE (test code = 323 mg/dL 70-110 H 4367960259) CREATININE (test code = 0.56 mg/dL 0.60-1.25 L 1756658709) CALCIUM (test code = 9.6 mg/dL 8.6-10.6 7641768058) eGFR (test code = mL/min/1.73m2 5143815960) ARPITA (test code = ARPITA) Association of [...] tests). Lab Interpretation Abnormal (test code = 32349-6) [facility] WITH [id number] 10:49:07 Test Item Value Reference Range Interpretation Comments WBC (test code = See_Comment H [Automated 9102-2) message] The sy stem which generated this result transmitted reference range : 4.20 - 10.70 10*3/?L. The reference range was not used to interpret this result as normal/abnormal . RBC (test code = See_Comment [Automated 279-8) message] The sy stem which [...] RDW-SD (test code = 46.7 fL 38.5-51.6 35504-2) RDW-CV (test code = 14.5 % 12.1-15.4 788-0) PLT (test code = See_Comment H [Automated 777-3) message] The sy stem which generated this result transmitted reference range : 150 - 328 10*3/ ?L. The reference r boubacar was not used to interpret this result as normal/abnormal . MPV (test code = 10.2 fL 9.8-13.0 64284-0) NRBC/100 WBC (test See_Comment [Automat ed code = 1204810608) message] The system which generated this result transmitted reference range : 0.0 - 10.0 /100 WBCs. The refer ence range was not u sed to interpret th is result as normal/abnormal . NRBC x10^3 (test code <0.01 See_Comment [Auto mated = 6440182024) message] The s ystem which generated this result transmitted reference range : 10*3/?L. The reference range was not used to interpret this result as normal/abnormal . GRAN MAT (NEUT) % 70.2 % (test code = 770-8) IMM GRAN % (test code 0.80 % = 1247651662) LYMPH % (test code = 18.0 % 736-9) MONO % (test code = 8.5 % 5905-5) EOS % (test code = 2.1 % 713-8) BASO % (test code = 0.4 % 706-2) GRAN MAT x10^3(ANC) 7.63 10*3/uL 1.99-6.95 H (test code = 8292853794) IMM GRAN x10^3 (test 0.09 10*3/uL 0.00-0.06 H code = 4385627462) LYMPH x10^3 (test code 1.96 10*3/uL 1.09-3.23 = 731-0) MONO x10^3 (test code 0.92 10*3/uL 0.36-1.02 = 742-7) EOS x10^3 (test code = 0.23 10*3/uL 0.06-0.53 711-2) BASO x10^3 (test code 0.04 10*3/uL 0.01-0.09 = 704-7) Lab Interpretation Abnormal (test code = 98240-5) [facility] METABOLIC PANEL (NA, K, CL, CO2, GLUCOSE, BUN, CREATININE, CA)2021-11-27 09:48:58 Test Item Value Reference Range Interpretation Comments NA (test code = 135 mmol/L 135-145 2483186954) K (test code = 4.7 mmol/L 3.5-5.0 3912959082) CL (test code = 101 mmol/L 98-108 3644732334) CO2 TOTAL (test code = 23 mmol/L 23-31 3302131599) AGAP (test code = 2-16 9716406395) BUN (test code = 18 mg/dL 7-23 3133963148) GLUCOSE (test code = 346 mg/dL 70-110 H 1936729104) CREATININE (test code = 0.64 mg/dL 0.60-1.25 2815402364) CALCIUM (test code = 9.1 mg/dL 8.6-10.6 0507654390) eGFR (test code = mL/min/1.73m2 1822380773) ARPITA (test code = ARPITA) Association of [...] tests). Lab Interpretation Abnormal (test code = 80212-1) [facility] WITH [id number] 09:06:55 Test Item Value Reference Range Interpretation Comments WBC (test code = See_Comment [Automated 1734-2) message] The sy stem which generated this [...] RDW-SD (test code = 47.7 fL 38.5-51.6 19166-7) RDW-CV (test code = 14.6 % 12.1-15.4 788-0) PLT (test code = See_Comment [Automated 777-3) message] The sy stem which generated this result transmitted reference range : 150 - 328 10*3/ ?L. The reference r boubacar was not used to interpret this result as normal/abnormal . MPV (test code = 9.9 fL 9.8-13.0 94776-0) NRBC/100 WBC (test See_Comment [Automat ed code = 8772896889) message] The system which generated this result transmitted reference range : 0.0 - 10.0 /100 WBCs. The refer ence range was not u sed to interpret th is result as normal/abnormal . NRBC x10^3 (test code <0.01 See_Comment [Auto mated = 1319232885) message] The s ystem which generated this result transmitted reference range : 10*3/?L. The reference range was not used to interpret this result as normal/abnormal . GRAN MAT (NEUT) % 62.6 % (test code = 770-8) IMM GRAN % (test code 1.30 % = 7032670784) LYMPH % (test code = 23.2 % 736-9) MONO % (test code = 9.6 % 5905-5) EOS % (test code = 2.9 % 713-8) BASO % (test code = 0.4 % 706-2) GRAN MAT x10^3(ANC) 5.85 10*3/uL 1.99-6.95 (test code = 6285629424) IMM GRAN x10^3 (test 0.12 10*3/uL 0.00-0.06 H code = 9452905498) LYMPH x10^3 (test code 2.17 10*3/uL 1.09-3.23 = 731-0) MONO x10^3 (test code 0.90 10*3/uL 0.36-1.02 = 742-7) EOS x10^3 (test code = 0.27 10*3/uL 0.06-0.53 711-2) BASO x10^3 (test code 0.04 10*3/uL 0.01-0.09 = 704-7) Lab Interpretation Abnormal (test code = 39026-3) [facility] CULTURE [id number] 02:01:46 Test Item Value Reference Range Interpretation Comments Blood Culture-Aerobic No organisms No growth Previo us (test code = 58217-1) isolated prelim inary verified result was Culture In Progress on 11/22/2021 at 00 01 CDTPrevious preliminary verified result was No growth a t 24 hours on 11/22/2021 at 21 01 CDTPrevious preliminary verified result was No growth a t 48 hours on 11/23/2021 at 21 CDTPrevious preliminary verified result was No growth a t 72 hours on 11/24/2021 at 21 01 CDT Blood No organisms No growth Previous Culture-Anaerobic isolated preliminar y (test code = 78553-3) verifi ed result was Culture In Progress on 11/22/2021 at 00 01 CDTPrevious preliminary verified result was No growth a t 24 hours on 11/22/2021 at 21 CDTPrevious preliminary verified result was No growth a t 48 hours on 11/23/2021 at 21 CDTPrevious preliminary verified result was No growth a t 72 hours on 11/24/2021 at 21 01 CDT Lab Interpretation Normal (test code = 96805-7) [facility] CULTURE [id number] 02:01:46 Test Item Value Reference Range Interpretation Comments Blood Culture-Aerobic No organisms No growth Previo us (test code = 24867-1) isolated prelim inary verified result was Culture In Progress on 11/22/2021 at 00 01 CDTPrevious preliminary verified result was No growth a t 24 hours on 11/22/2021 at 21 01 CDTPrevious preliminary verified result was No growth a t 48 hours on 11/23/2021 at 21 CDTPrevious preliminary verified result was No growth a t 72 hours on 11/24/2021 at 21 01 CDT Blood No organisms No growth Previous Culture-Anaerobic isolated preliminar y (test code = 35575-3) verifi ed result was Culture In Progress on 11/22/2021 at 00 01 CDTPrevious preliminary verified result was No growth a t 24 hours on 11/22/2021 at 21 01 CDTPrevious preliminary verified result was No growth a t 48 hours on 11/23/2021 at 21 CDTPrevious preliminary verified result was No growth a t 72 hours on 11/24/2021 at 21 01 CDT Lab Interpretation Normal (test code = 16580-7) [facility]N-[facility]MINAL [id number] 12:18:49 Test Item Value Reference Range Interpretation Comments NT-proBNP (test code 117 pg/mL See_Comment [Autom ated = 2000535296) message] The system which generated this result transmitted reference range : <=125. The reference range was not used to interpret this result as normal/abnormal . ARPITA (test code = ARPITA) Biotin has been reported to cause a negative bias, interpret results relative to patient's use of biotin. Lab Interpretation Normal (test code = 58254-3) [facility]. METABOLIC PANEL (88816)2021-11-24 12:10:25 Test Item Value Reference Range Interpretation Comments NA (test code = 137 mmol/L 135-145 6999660402) K (test code = 4.6 mmol/L 3.5-5.0 4267725865) CL (test code = 108 mmol/L 98-108 5503785784) CO2 TOTAL (test code = 20 mmol/L 23-31 L 7572804704) AGAP (test code = 2-16 2966678608) BUN (test code = 12 mg/dL 7-23 0063288496) GLUCOSE (test code = 186 mg/dL 70-110 H 1495528245) CREATININE (test code = 0.49 mg/dL 0.60-1.25 L 6601587546) TOTAL BILI (test code = 0.7 mg/dL 0.1-1.1 6566792430) CALCIUM (test code = 8.7 mg/dL 8.6-10.6 0951129800) T PROTEIN (test code = 6.9 g/dL 6.3-8.2 9100870683) ALBUMIN (test code = 3.7 g/dL 3.5-5.0 7701620055) ALK PHOS (test code = 114 U/L 34-122 1830198656) ALTv (test code = 75 U/L 5-50 H 1742-6) AST(SGOT) (test code = 27 U/L 13-40 4441611471) eGFR (test code = mL/min/1.73m2 9008758591) ARPITA (test code = ARPITA) Association of [...] tests). Lab Interpretation Abnormal (test code = 64883-1) [facility] WITH [id number] 11:14:25 Test Item Value Reference Range Interpretation Comments WBC (test code = See_Comment [Automated 3906-2) message] The sy stem which generated this result transmitted reference range : 4.20 - 10.70 10*3/?L. The reference range was not used to interpret this result as normal/abnormal . RBC (test code = See_Comment [Automated 147-8) message] The sy stem which generated this [...] RDW-SD (test code = 48.7 fL 38.5-51.6 32478-7) RDW-CV (test code = 15.0 % 12.1-15.4 788-0) PLT (test code = See_Comment [Automated 777-3) message] The sy stem which generated this result transmitted reference range : 150 - 328 10*3/ ?L. The reference r boubacar was not used to interpret this result as normal/abnormal . MPV (test code = 10.4 fL 9.8-13.0 20253-9) NRBC/100 WBC (test See_Comment [Automat ed code = 5361986833) message] The system which generated this result transmitted reference range : 0.0 - 10.0 /100 WBCs. The refer ence range was not u sed to interpret th is result as normal/abnormal . NRBC x10^3 (test code <0.01 See_Comment [Auto mated = 3852095302) message] The s ystem which generated this result transmitted reference range : 10*3/?L. The reference range was not used to interpret this result as normal/abnormal . GRAN MAT (NEUT) % 65.5 % (test code = 770-8) IMM GRAN % (test code 0.80 % = 0749809728) LYMPH % (test code = 20.9 % 736-9) MONO % (test code = 9.7 % 5905-5) EOS % (test code = 2.7 % 713-8) BASO % (test code = 0.4 % 706-2) GRAN MAT x10^3(ANC) 5.41 10*3/uL 1.99-6.95 (test code = 3276924542) IMM GRAN x10^3 (test 0.07 10*3/uL 0.00-0.06 H code = 0863586188) LYMPH x10^3 (test code 1.73 10*3/uL 1.09-3.23 = 731-0) MONO x10^3 (test code 0.80 10*3/uL 0.36-1.02 = 742-7) EOS x10^3 (test code = 0.22 10*3/uL 0.06-0.53 711-2) BASO x10^3 (test code 0.03 10*3/uL 0.01-0.09 = 704-7) Lab Interpretation Abnormal (test code = 66929-4) [facility] [id number] 13:16:44 Test Item Value Reference Range Interpretation Comments NT-proBNP (test code 157 pg/mL See_Comment H [Autom ated = 1366696677) message] The system which generated this result transmitted reference range : <=125. The reference range was not used to interpret this result as normal/abnormal . ARPITA (test code = ARPITA) Biotin has been reported to cause a negative bias, interpret results relative to patient's use of biotin. Lab Interpretation Abnormal (test code = 48892-7) [facility] Center[facility] MET[facility]OLIC PAN[facility] (76736)2021-11-23 13:08:45 Test Item Value Reference Range Interpretation Comments NA (test code = 141 mmol/L 135-145 3633841700) K (test code = 4.2 mmol/L 3.5-5.0 3805593491) CL (test code = 110 mmol/L 98-108 H 7167273979) CO2 TOTAL (test code = 24 mmol/L 23-31 2992484416) AGAP (test code = 2-16 1539767842) BUN (test code = 11 mg/dL 7-23 2561341457) GLUCOSE (test code = 142 mg/dL 70-110 H 2506923663) CREATININE (test code = 0.61 mg/dL 0.60-1.25 1823239391) TOTAL BILI (test code = 0.7 mg/dL 0.1-1.5 2691726650) CALCIUM (test code = 8.5 mg/dL 8.6-10.6 L 2074011677) T PROTEIN (test code = 6.7 g/dL 6.3-8.2 0259144868) ALBUMIN (test code = 3.6 g/dL 3.5-5.0 5670944040) ALK PHOS (test code = 120 U/L 34-122 0548046615) ALTv (test code = 88 U/L 5-50 H 1742-6) AST(SGOT) (test code = 27 U/L 13-40 3991182834) eGFR (test code = mL/min/1.73m2 1326914198) ARPITA (test code = ARPITA) Association of [...] tests). Lab Interpretation Abnormal (test code = 47670-0) [facility] 13[facility]08[facility]45 Test Item Value Reference Range Interpretation Comments MAGNESIUM (test code = 3003140574) 1.7 mg/dL 1.7-2.4 Lab Interpretation (test code = Normal 01037-4) [facility] WITH [id number] 11:57:56 Test Item Value Reference Range Interpretation [...] RDW-SD (test code = 48.9 fL 38.5-51.6 99509-5) RDW-CV (test code = 14.9 % 12.1-15.4 788-0) PLT (test code = See_Comment [Automated 777-3) message] The sy stem which generated this result transmitted reference range : 150 - 328 10*3/ ?L. The reference r boubacar was not used to interpret this result as normal/abnormal . MPV (test code = 9.4 fL 9.8-13.0 L 81268-7) NRBC/100 WBC (test See_Comment [Automat ed code = 9135105377) message] The system which generated this result transmitted reference range : 0.0 - 10.0 /100 WBCs. The refer ence range was not u sed to interpret th is result as normal/abnormal . NRBC x10^3 (test code <0.01 See_Comment [Auto mated = 2678744024) message] The s ystem which generated this result transmitted reference range : 10*3/?L. The reference range was not used to interpret this result as normal/abnormal . GRAN MAT (NEUT) % 63.9 % (test code = 770-8) IMM GRAN % (test code 0.70 % = 3368363123) LYMPH % (test code = 22.7 % 736-9) MONO % (test code = 9.6 % 5905-5) EOS % (test code = 2.7 % 713-8) BASO % (test code = 0.4 % 706-2) GRAN MAT x10^3(ANC) 4.75 10*3/uL 1.99-6.95 (test code = 1668594005) IMM GRAN x10^3 (test 0.05 10*3/uL 0.00-0.06 code = 5230191795) LYMPH x10^3 (test code 1.69 10*3/uL 1.09-3.23 = 731-0) MONO x10^3 (test code 0.71 10*3/uL 0.36-1.02 = 742-7) EOS x10^3 (test code = 0.20 10*3/uL 0.06-0.53 711-2) BASO x10^3 (test code 0.03 10*3/uL 0.01-0.09 = 704-7) Lab Interpretation Abnormal (test code = 04503-3) [facility] CenterVITAMIN B12, [id number] 19:18:39 Test Item Value Reference Range Interpretation Comments VIT B12 (test code = 249 pg/mL 240-930 4316955110) ARPITA (test code = ARPITA) Biotin has been reported to cause a positive bias, interpret results relative to patient's use of biotin. Lab Interpretation (test Normal code = 11421-4) [facility] [id number] 19:18:39 Test Item Value Reference Range Interpretation Comments VIT B12 (test code = 249 pg/mL 240-930 [id number]) ARPITA (test code = ARPITA) Biotin has been reported to cause a positive bias, interpret results relative to patient's use of biotin. Lab Interpretation (test Normal code = 12624-3) [facility] CenterVIT[facility]IN D, [id number] 17:30:28 Test Item Value Reference Range Interpretation Comments VIT D 25OH (test code = 16 ng/mL 25-80 L 20819-4) ARPITA (test code = ARPITA) Deficiency: <20 ng/mLInsufficiency: 20-24 ng/mLOptimal: 25-80 ng/mL Lab Interpretation (test Abnormal code = 15554-2) [facility], [id number] 17:30:28 Test Item Value Reference Range Interpretation Comments VIT D 25OH (test code = 16 ng/mL 25-80 L 81117-2) ARPITA (test code = ARPITA) Deficiency: <20 ng/mLInsufficiency: 20-24 ng/mLOptimal: 25-80 ng/mL Lab Interpretation (test Abnormal code = 04483-9) [facility] CenterPROCALCITONIN2022-05-11 16:07:32 Test Item Value Reference Interpretation Comments Range Procalcitonin (test 0.04 ng/mL See_Comment [Automa lester code = 3912515863) message] The system which generated this result [...] lung abscess/empyema. For further information please refer to:[email or web address] [email or web address] p Lab Interpretation Normal (test code = 07183-3) [facility] CenterPROCALCITONIN2022-05-11 16:07:32 Test Item Value Reference Range Interpretation Comments Procalcitonin (test 0.04 ng/mL <0.07 code = 1077921521) ARPITA (test code = ARPITA) INTERPRETATION OF [...] lung abscess/empyema. For further information please refer to:[email or web address] Lab Interpretation Normal (test code = 14712-7) [facility] CenterSEDIMENTATION [id number] 13:21:10 Test Item Value Reference Range Interpretation Comments ESR (test code = See_Comment H [Automated message] 1947435491) The system [employer] generated this result transmitted ref erence range: 0 - 10 m m/HR. The reference r boubacar was not used to interpret this result as normal/abnor mal. Lab Interpretation (test Abnormal code = 27646-7) [facility] CenterGLYCOSYLATED HEMOGLOBIN (A1C)2021-11-22 13:12:27 Test Item Value Reference Range Interpretation Comments HGB A1C (test code = 6.3 % 4.0-5.7 H 4548-4) ARPITA (test code = ARPITA) Reference RangesNormal: <5.7%Prediabetes: 5.7 - 6.4%Diabetes: > 6.5% Lab Interpretation (test Abnormal code = 61099-2) [facility] CenterN-TERMINAL [id number]-[id number] 11:53:14 Test Item Value Reference Range Interpretation Comments NT-proBNP (test code 16 pg/mL See_Comment [Autom ated = 7020757375) message] The system which generated this result transmitted reference range : <=125. The reference range was not used to interpret this result as normal/abnormal . ARPITA (test code = ARPITA) Biotin has been reported to cause a negative bias, interpret results relative to patient's use of biotin. Lab Interpretation Normal (test code = 06214-5) [facility] CenterCOMP. METABOLIC PANEL (11469)2021-11-22 11:44:55 Test Item Value Reference Range Interpretation Comments NA (test code = 142 mmol/L 135-145 1752059235) K (test code = 3.9 mmol/L 3.5-5.0 7124311560) CL (test code = 108 mmol/L 98-108 6303951734) CO2 TOTAL (test code = 24 mmol/L 23-31 5105771045) AGAP (test code = 2-16 8361396184) BUN (test code = 11 mg/dL 7-23 1951581394) GLUCOSE (test code = 205 mg/dL 70-110 H 0168992122) CREATININE (test code = 0.71 mg/dL 0.60-1.25 2073692017) TOTAL BILI (test code = 0.7 mg/dL 0.1-1.9 3459430994) CALCIUM (test code = 8.9 mg/dL 8.6-10.6 1233016962) T PROTEIN (test code = 7.3 g/dL 6.3-8.2 2767578233) ALBUMIN (test code = 3.8 g/dL 3.5-5.0 2512744387) ALK PHOS (test code = 135 U/L 34-122 H 9195365380) ALTv (test code = 120 U/L 5-50 H 2-6) AST(SGOT) (test code = 33 U/L 13-40 9983890388) eGFR (test code = mL/min/1.73m2 2025011056) ARPITA (test code = ARPITA) Association of [...] tests). Lab Interpretation Abnormal (test code = 93834-5) [facility] CenterMAGNESIUM2022-05-11 11:44:55 Test Item Value Reference Range Interpretation Comments MAGNESIUM (test code = 0975412479) 1.6 mg/dL 1.7-2.4 L Lab Interpretation (test code = Abnormal 29117-3) [facility] CenterPHOSPHORUS2022-05-11 11:44:35 Test Item Value Reference Range Interpretation Comments PHOSPHORUS (test code = 1592481407) 4.1 mg/dL 2.5-5.0 Lab Interpretation (test code = Normal 35273-3) [facility] CenterCREATINE [id number] 11:44:15 Test Item Value Reference Range Interpretation Comments CK (test code = 2813320091) 50 U/L 33-194 Lab Interpretation (test code = Normal 19620-8) [facility] CenterCREATINE [id number] 11:44:15 Test Item Value Reference Range Interpretation Comments CK (test code = 0686146376) 50 U/L 33-194 Lab Interpretation (test code = Normal 04707-4) [facility] CenterCB WITH [id number] 11:28:14 Test Item Value Reference Range Interpretation Comments WBC (test code = See_Comment [Automated 7106-2) message] The sy stem which generated this result transmitted reference range : 4.20 - 10.70 10*3/?L. The reference range was not used to interpret this result as normal/abnormal . RBC (test code = See_Comment [Automated 232-8) message] The sy stem which generated this [...] RDW-SD (test code = 48.4 fL 38.5-51.6 25108-7) RDW-CV (test code = 15.1 % 12.1-15.4 788-0) PLT (test code = See_Comment [Automated 777-3) message] The sy stem which generated this result transmitted reference range : 150 - 328 10*3/ ?L. The reference r boubacar was not used to interpret this result as normal/abnormal . MPV (test code = 10.2 fL 9.8-13.0 06560-4) NRBC/100 WBC (test See_Comment [Automat ed code = 0493550388) message] The system which generated this result transmitted reference range : 0.0 - 10.0 /100 WBCs. The refer ence range was not u sed to interpret th is result as normal/abnormal . NRBC x10^3 (test code <0.01 See_Comment [Auto mated = 7022261805) message] The s ystem which generated this result transmitted reference range : 10*3/?L. The reference range was not used to interpret this result as normal/abnormal . GRAN MAT (NEUT) % 67.8 % (test code = 770-8) IMM GRAN % (test code 0.80 % = 0233909473) LYMPH % (test code = 19.8 % 736-9) MONO % (test code = 8.7 % 5905-5) EOS % (test code = 2.7 % 713-8) BASO % (test code = 0.2 % 706-2) GRAN MAT x10^3(ANC) 6.56 10*3/uL 1.99-6.95 (test code = 0716570399) IMM GRAN x10^3 (test 0.08 10*3/uL 0.00-0.06 H code = 0643097007) LYMPH x10^3 (test code 1.91 10*3/uL 1.09-3.23 = 731-0) MONO x10^3 (test code 0.84 10*3/uL 0.36-1.02 = 742-7) EOS x10^3 (test code = 0.26 10*3/uL 0.06-0.53 711-2) BASO x10^3 (test code <0.03 0.01-0.09 = 704-7) Lab Interpretation Abnormal (test code = 55883-5) [facility] [id number] 10:56:10 Test Item Value Reference Range Interpretation Comments IRON (test code = 8534401696) 46 ug/dL 50-160 L TIBC (test code = 6565513464) 299 ug/dL 250-410 % FE SAT (test code = 8463022699) 15 % 20-50 L Lab Interpretation (test code = Abnormal 06729-0) [facility] [id number] 10:56:10 Test Item Value Reference Range Interpretation Comments IRON (test code = 6620091226) 46 ug/dL 50-160 L TIBC (test code = 2703364444) 299 ug/dL 250-410 % FE SAT (test code = 1147764363) 15 % 20-50 L Lab Interpretation (test code = Abnormal 06748-7) [facility] CenterFERRITIN [id number] 10:13:03 Test Item Value Reference Range Interpretation Comments FERRITIN (test code = 89.2 ng/mL 18-464 0633704338) ARPITA (test code = ARPITA) Biotin has been reported to cause a negative bias, interpret results relative to patient's use of biotin. Lab Interpretation (test Normal code = 00628-0) [facility] CenterFERRITIN [id number] 10:13:03 Test Item Value Reference Range Interpretation Comments FERRITIN (test code = 89.2 ng/mL 18.0-464.0 5081834093) ARPITA (test code = ARPITA) Biotin has been reported to cause a negative bias, interpret results relative to patient's use of biotin. Lab Interpretation (test Normal code = 11460-6) [facility] CenterTHYROID STIMULATING [id number] 10:09:06 Test Item Value Reference Range Interpretation Comments TSH (test code = See_Comment [Automated message] 0253243793) The system [employer] generated this result transmitted ref erence range: 0.45 - 4 .70 mIU/L. The refe rence range was not u sed to interpret this result as normal/abnor mal. Lab Interpretation (test Normal code = 40641-1) [facility] CenterTHYROID STIMULATING [id number] 10:09:06 Test Item Value Reference Range Interpretation Comments TSH (test code = See_Comment [Automated message] 1969040584) The system [employer] generated this result transmitted ref erence range: 0.45 - 4 .70 mIU/L. The refe rence range was not u sed to interpret this result as normal/abnor mal. Lab Interpretation (test Normal code = 44934-8) [facility] CenterN-TERMINAL [id number] 09:47:44 Test Item Value Reference Range Interpretation Comments NT-proBNP (test code 12 pg/mL See_Comment [Autom ated = 6533586220) message] The system which generated this result transmitted reference range : <=125. The reference range was not used to interpret this result as normal/abnormal . ARPITA (test code = ARPITA) Biotin has been reported to cause a negative bias, interpret results relative to patient's use of biotin. Lab Interpretation Normal (test code = 48554-1) [facility] CenterLIPID PANEL (17467)(TOTAL CHOLESTEROL, TRIGLYCERIDES, HDL)2021-11-22 09:35:58 Test Item Value Reference Range Interpretation Comments CHOL (test code = 250 mg/dL 120-200 H 3310959560) HDL (test code = 34 mg/dL See_Comment L [Automated message] 7384873281) The system [employer] generated this result transmit lester reference range : >=40. The refer ence range was not u sed to interpret th is result as normal/abnormal . HDLC RATIO (test code = See_Comment H [Au tomated message] 6725523677) The system [employer] generated this result transmit lester reference range : <=5.0. The refe rence range was not u sed to interpret th is result as normal/abnormal . TRIG (test code = 394 mg/dL 30-170 H 0994970242) LDL CHOL (test code = 137 mg/dL See_Comment [Auto mated message] 38955-7) The system [employer] generated this result transmit lester reference range : <=160. The refe rence range was not u sed to interpret th is result as normal/abnormal . VLDL (test code = 79 mg/dL 5-60 H 7472605803) Lab Interpretation (test Abnormal code = 96099-0) [facility] CenterLIPID PANEL (75017)(TOTAL CHOLESTEROL, TRIGLYCERIDES, HDL)2021-11-22 09:35:58 Test Item Value Reference Range Interpretation Comments CHOL (test code = 250 mg/dL 120-200 H 2150439530) HDL (test code = 34 mg/dL >40 L 3142971027) HDLC RATIO (test code = See_Comment H [Au tomated message] 2081369888) The system [employer] generated this result transmit lester reference range : <=5.0. The refe rence range was not u sed to interpret th is result as normal/abnormal . TRIG (test code = 394 mg/dL 30-170 H 0324931365) LDL CHOL (test code = 137 mg/dL See_Comment [Auto mated message] 47301-1) The system [employer] generated this result transmit lester reference range : <=160. The refe rence range was not u sed to interpret th is result as normal/abnormal . VLDL (test code = 79 mg/dL 5-60 H 8501254050) Lab Interpretation (test Abnormal code = 65833-0) [facility] CenterMAGNESIUM2022-05-11 09:35:42 Test Item Value Reference Range Interpretation Comments MAGNESIUM (test code = 4778413309) 1.5 mg/dL 1.7-2.4 L Lab Interpretation (test code = Abnormal 10277-0) [facility] CenterPHOSPHORUS2022-05-11 09:35:42 Test Item Value Reference Range Interpretation Comments PHOSPHORUS (test code = 0269158671) 3.3 mg/dL 2.5-5.0 Lab Interpretation (test code = Normal 65349-0) [facility] CenterCOMP. METABOLIC PANEL (13852)2021-11-22 01:29:09 Test Item Value Reference Range Interpretation Comments NA (test code = 142 mmol/L 135-145 9386932230) K (test code = 3.7 mmol/L 3.5-5.0 6428723288) CL (test code = 103 mmol/L 98-108 7070041191) CO2 TOTAL (test code = 27 mmol/L 23-31 2035503385) AGAP (test code = 2-16 9117146046) BUN (test code = 11 mg/dL 7-23 2812497656) GLUCOSE (test code = 166 mg/dL 70-110 H 2367350932) CREATININE (test code = 0.61 mg/dL 0.60-1.25 6363705656) TOTAL BILI (test code = 0.8 mg/dL 0.1-1.3 9867716580) CALCIUM (test code = 9.3 mg/dL 8.6-10.6 6989021325) T PROTEIN (test code = 7.4 g/dL 6.3-8.2 6017895207) ALBUMIN (test code = 4.0 g/dL 3.5-5.0 8507908883) ALK PHOS (test code = 164 U/L 34-122 H 8706806573) ALTv (test code = 149 U/L 5-50 H 1742-6) AST(SGOT) (test code = 29 U/L 13-40 0472223790) eGFR (test code = mL/min/1.73m2 4804057962) ARPITA (test code = ARPITA) Association of [...] tests). Lab Interpretation Abnormal (test code = 05655-4) [facility] CenterACTIVATED PARTIAL THRMPLAS [id number] 01:23:46 Test Item Value Reference Range Interpretation Comments APTT Patient (test See_Comment [Automat ed code = 3173-2) message] The system which generated this result transmitted reference range : 23 - 38 Seconds . The reference range was not used to interpr et this result as normal/abnormal . ARPITA (test code = ARPITA) The [facility] patient population mean normal value for aPTT is 30 seconds. Lab Interpretation Normal (test code = 57150-0) [facility] CenterPROTHROMBIN TIME / [id number] 01:21:51 Test Item Value Reference Range Interpretation [...] tions. Lab Interpretation (test Normal code = 33542-2) [facility] CenterCBC WITH [id number] 01:15:28 Test Item Value Reference Range Interpretation Comments WBC (test code = See_Comment H [Automated 0390-2) message] The sy stem which generated this result transmitted reference range : 4.20 - 10.70 10*3/?L. The reference range was not used to interpret this result as normal/abnormal . RBC (test code = See_Comment H [Automated 019-8) message] The sy stem which generated this [...] RDW-SD (test code = 48.4 fL 38.5-51.6 18385-6) RDW-CV (test code = 15.1 % 12.1-15.4 788-0) PLT (test code = See_Comment [Automated 777-3) message] The sy stem which generated this result transmitted reference range : 150 - 328 10*3/ ?L. The reference r boubacar was not used to interpret this result as normal/abnormal . MPV (test code = 10.1 fL 9.8-13.0 21273-5) NRBC/100 WBC (test See_Comment [Automat ed code = 1897506034) message] The system which generated this result transmitted reference range : 0.0 - 10.0 /100 WBCs. The refer ence range was not u sed to interpret th is result as normal/abnormal . NRBC x10^3 (test code <0.01 See_Comment [Auto mated = 3286811590) message] The s ystem which generated this result transmitted reference range : 10*3/?L. The reference range was not used to interpret this result as normal/abnormal . GRAN MAT (NEUT) % 72.7 % (test code = 770-8) IMM GRAN % (test code 0.60 % = 8194747512) LYMPH % (test code = 15.5 % 736-9) MONO % (test code = 8.2 % 5905-5) EOS % (test code = 2.6 % 713-8) BASO % (test code = 0.4 % 706-2) GRAN MAT x10^3(ANC) 7.83 10*3/uL 1.99-6.95 H (test code = 0872372439) IMM GRAN x10^3 (test 0.07 10*3/uL 0.00-0.06 H code = 0341360188) LYMPH x10^3 (test code 1.67 10*3/uL 1.09-3.23 = 731-0) MONO x10^3 (test code 0.88 10*3/uL 0.36-1.02 = 742-7) EOS x10^3 (test code = 0.28 10*3/uL 0.06-0.53 711-2) BASO x10^3 (test code 0.04 10*3/uL 0.01-0.09 = 704-7) Lab Interpretation Abnormal (test code = 10352-4) [facility] CenterLactic Acid Whole [id number] 01:14:32 Test Item Value Reference Range Interpretation Comments LACTIC ACID (test code = 1.86 mmol/L 0.50-2.20 3112851641) Lab Interpretation (test code = Normal 40711-4) [facility] [id number] 12:58:00 Test Item Value Reference Range Interpretation Comments Glucose Lvl (test code = Glucose Lvl) 228 70-99 [facility]2022-04-12 12:58:00 Test Item Value Reference Range Interpretation Comments BUN (test code = BUN) 23 7-22 [facility]2022-04-12 12:58:00 Test Item Value Reference Range Interpretation Comments Creatinine Lvl (test code = Creatinine 0.78 0.50-1.40 Lvl) [facility]2022-04-12 12:58:00 Test Item Value Reference Range Interpretation Comments Sodium Lvl (test code = Sodium Lvl) 138 135-145 [facility]2022-04-12 12:58:00 Test Item Value Reference Range Interpretation Comments Potassium Lvl (test code = Potassium 4.6 3.5-5.1 Lvl) [place] 538552-04-12 12:58:00 Test Item Value Reference Range Interpretation Comments Chloride Lvl (test code = Chloride Lvl) 108 95-109 [facility]2022-04-12 12:58:00 Test Item Value Reference Range Interpretation Comments CO2 (test code = CO2) 23 24-32 [facility]2022-04-12 12:58:00 Test Item Value Reference Range Interpretation Comments Calcium Lvl (test code = Calcium Lvl) 9.0 8.5-10.5 [facility]2022-04-12 12:58:00 Test Item Value Reference Range Interpretation Comments AGAP (test code = AGAP) 11.6 10.0-20.0 [facility]2022-04-12 12:58:00 Test Item Value Reference Range Interpretation Comments eGFR (test code = eGFR) 116 [facility] CenterSfgiksqGOTSMYEUME6467-15-99 12:58:00 Test Item Value Reference Range Interpretation Comments WBC (test code = WBC) 10.5 3.7-10.4 [facility] CenterTsagmdlXCJLVPLMDV4630-57-92 12:58:00 Test Item Value Reference Range Interpretation Comments RBC (test code = RBC) 5.48 4.70-6.10 [facility] CenterSpjggiyRUWHGXTAMV2760-80-64 12:58:00 Test Item Value Reference Range Interpretation Comments Hgb (test code = Hgb) 16.0 14.0-18.0 [facility] CenterNykqvukDFOUBINLRR1930-22-06 12:58:00 Test Item Value Reference Range Interpretation Comments Hct (test code = Hct) 49.8 42.0-54.0 [facility] CenterAprnhktQQNWTZANNM6963-88-99 12:58:00 Test Item Value Reference Range Interpretation Comments MCV (test code = MCV) 90.8 80.0-94.0 [place] 211002-04-12 12:58:00 Test Item Value Reference Range Interpretation Comments MCH (test code = MCH) 29.1 pg 27.0-31.0 [facility] CenterWcebpavDKIMTHCFGJ7620-80-89 12:58:00 Test Item Value Reference Range Interpretation Comments MCHC (test code = MCHC) 32.1 32.0-36.0 [place] 211002-04-12 12:58:00 Test Item Value Reference Range Interpretation Comments RDW (test code = RDW) 15.5 11.5-14.5 [facility] CenterLqglrrvVUGMZMSTSX1130-19-10 12:58:00 Test Item Value Reference Range Interpretation Comments Platelet (test code = Platelet) 312 266-450 [facility] CenterEgiaugdWZPZGKWPGX4744-10-14 12:58:00 Test Item Value Reference Range Interpretation Comments MPV (test code = MPV) 8.3 7.4-10.4 [place] 211002-04-12 12:58:00 Test Item Value Reference Range Interpretation Comments PT (test code = PT) 12.9 s 12.0-14.7 [place] 211002-04-12 12:58:00 Test Item Value Reference Range Interpretation Comments INR (test code = INR) 0.98 1 0.85-1.17 [place] [address]-04-12 12:58:00 Test Item Value Reference Range Interpretation Comments PTT (test code = PTT) 27.3 s 22.9-35.8 [place] 211002-04-12 12:58:00 Test Item Value Reference Range Interpretation Comments Segs (test code = Segs) 71.2 45.0-75.0 [place] [address]-04-12 12:58:00 Test Item Value Reference Range Interpretation Comments Lymphocytes (test code = Lymphocytes) 21.1 20.0-40.0 [place] [address]-04-12 12:58:00 Test Item Value Reference Range Interpretation Comments Monocytes (test code = Monocytes) 6.8 2.0-12.0 [place] 211002-04-12 12:58:00 Test Item Value Reference Range Interpretation Comments Eosinophils (test code = 0.1 See_Comment [A utomated message] The Eosinophils) system which ge nerated this result tra nsmitted reference range : <=4.0. The reference r boubacar was not used to int erpret this result as normal/abnormal . [facility] CenterAjcdyhwHLCEKUAOSE9740-50-23 12:58:00 Test Item Value Reference Range Interpretation Comments Basophils (test code = 0.8 See_Comment [Aut omated message] The Basophils) system which ge nerated this result tra nsmitted reference range : <=1.0. The reference r boubacar was not used to int erpret this result as normal/abnormal . [place] 211002-04-12 12:58:00 Test Item Value Reference Range Interpretation Comments Neutrophils # (test code = Neutrophils 7.5 1.5-8.1 #) [place] 211002-04-12 12:58:00 Test Item Value Reference Range Interpretation Comments Lymphocytes # (test code = Lymphocytes 2.2 1.0-5.5 #) [place] 211002-04-12 12:58:00 Test Item Value Reference Range Interpretation Comments Monocytes # (test code 0.7 See_Comment [Aut omated message] The = Monocytes #) system which generated this result tra nsmitted reference range : <=0.8. The reference r boubacar was not used to int erpret this result as normal/abnormal . [facility] CenterPwbfbxwQRZQHSSOIC7727-49-70 12:58:00 Test Item Value Reference Range Interpretation Comments Basophils # (test code 0.1 See_Comment [Aut omated message] The = Basophils #) system which generated this result tra nsmitted reference range : <=0.2. The reference r boubacar was not used to int erpret this result as normal/abnormal . [facility] DVGFY8007-08-08 12:58:00 Test Item Value Reference Range Interpretation Comments Glucose Lvl (test code = Glucose Lvl) 228 70-99 [place] 538552-04-12 12:58:00 Test Item Value Reference Range Interpretation Comments BUN (test code = BUN) 23 7-22 [facility]2022-04-12 12:58:00 Test Item Value Reference Range Interpretation Comments Creatinine Lvl (test code = Creatinine 0.78 0.50-1.40 Lvl) [facility]2022-04-12 12:58:00 Test Item Value Reference Range Interpretation Comments Sodium Lvl (test code = Sodium Lvl) 138 135-145 [facility]2022-04-12 12:58:00 Test Item Value Reference Range Interpretation Comments Potassium Lvl (test code = Potassium 4.6 3.5-5.1 Lvl) [facility]2022-04-12 12:58:00 Test Item Value Reference Range Interpretation Comments Chloride Lvl (test code = Chloride Lvl) 108 95-109 [facility] SENDV3925-26-58 12:58:00 Test Item Value Reference Range Interpretation Comments CO2 (test code = CO2) 23 24-32 [facility]Theme [employer] IPBMG5224-00-65 12:58:00 Test Item Value Reference Range Interpretation Comments Calcium Lvl (test code = Calcium Lvl) 9.0 8.5-10.5 [facility] UJHGG6539-23-96 12:58:00 Test Item Value Reference Range Interpretation Comments AGAP (test code = AGAP) 11.6 10.0-20.0 [facility]2022-04-12 12:58:00 Test Item Value Reference Range Interpretation Comments eGFR (test code = eGFR) 116 [facility] CenterFakbgsjEVXMFNRPJJ1003-49-44 12:58:00 Test Item Value Reference Range Interpretation Comments WBC (test code = WBC) 10.5 3.7-10.4 [facility] CenterIdhphsxLZNNAEUXMJ1033-06-19 12:58:00 Test Item Value Reference Range Interpretation Comments RBC (test code = RBC) 5.48 4.70-6.10 [facility] CenterQsytdmdIUTUAWPASL2218-23-66 12:58:00 Test Item Value Reference Range Interpretation Comments Hgb (test code = Hgb) 16.0 14.0-18.0 [place] 211002-04-12 12:58:00 Test Item Value Reference Range Interpretation Comments Hct (test code = Hct) 49.8 42.0-54.0 [facility] CenterKjblznqTDRNZWGKPE5568-21-06 12:58:00 Test Item Value Reference Range Interpretation Comments MCV (test code = MCV) 90.8 80.0-94.0 [facility] CenterIxdjssgJSTJFFBNKC1465-07-57 12:58:00 Test Item Value Reference Range Interpretation Comments MCH (test code = MCH) 29.1 pg 27.0-31.0 [facility] CenterBlnciljZHPGQTLIGJ6291-93-67 12:58:00 Test Item Value Reference Range Interpretation Comments MCHC (test code = MCHC) 32.1 32.0-36.0 [facility] CenterZugersjXRNWZYEUCH4130-75-69 12:58:00 Test Item Value Reference Range Interpretation Comments RDW (test code = RDW) 15.5 11.5-14.5 [facility] CenterTuqzcssDTMKIUXDHP7341-70-57 12:58:00 Test Item Value Reference Range Interpretation Comments Platelet (test code = Platelet) 312 133-450 [facility] CenterBtpjfzzWNGJUDKGMW2735-68-41 12:58:00 Test Item Value Reference Range Interpretation Comments MPV (test code = MPV) 8.3 7.4-10.4 [place] 211002-04-12 12:58:00 Test Item Value Reference Range Interpretation Comments PT (test code = PT) 12.9 s 12.0-14.7 [facility] CenterXtzhhgxMQKPMEYIDX3302-23-90 12:58:00 Test Item Value Reference Range Interpretation Comments INR (test code = INR) 0.98 1 0.85-1.17 [place] [address]-04-12 12:58:00 Test Item Value Reference Range Interpretation Comments PTT (test code = PTT) 27.3 s 22.9-35.8 [place] [address]-04-12 12:58:00 Test Item Value Reference Range Interpretation Comments Segs (test code = Segs) 71.2 45.0-75.0 [place] [address]-04-12 12:58:00 Test Item Value Reference Range Interpretation Comments Lymphocytes (test code = Lymphocytes) 21.1 20.0-40.0 [place] [address]-04-12 12:58:00 Test Item Value Reference Range Interpretation Comments Monocytes (test code = Monocytes) 6.8 2.0-12.0 [place] [address]-04-12 12:58:00 Test Item Value Reference Range Interpretation Comments Eosinophils (test code = 0.1 See_Comment [A utomated message] The Eosinophils) system which ge nerated this result tra nsmitted reference range : <=4.0. The reference r boubacar was not used to int erpret this result as normal/abnormal . [place] [address]-04-12 12:58:00 Test Item Value Reference Range Interpretation Comments Basophils (test code = 0.8 See_Comment [Aut omated message] The Basophils) system which ge nerated this result tra nsmitted reference range : <=1.0. The reference r boubacar was not used to int erpret this result as normal/abnormal . [place] 211002-04-12 12:58:00 Test Item Value Reference Range Interpretation Comments Neutrophils # (test code = Neutrophils 7.5 1.5-8.1 #) [place] 211002-04-12 12:58:00 Test Item Value Reference Range Interpretation Comments Lymphocytes # (test code = Lymphocytes 2.2 1.0-5.5 #) [place] [address]-04-12 12:58:00 Test Item Value Reference Range Interpretation Comments Monocytes # (test code 0.7 See_Comment [Aut omated message] The = Monocytes #) system which generated this result tra nsmitted reference range : <=0.8. The reference r boubacar was not used to int erpret this result as normal/abnormal . [facility] CenterIdwwgrwBWFGNWAHNX4929-69-29 12:58:00 Test Item Value Reference Range Interpretation Comments Basophils # (test code 0.1 See_Comment [Aut omated message] The = Basophils #) system which generated this result tra nsmitted reference range : <=0.2. The reference r boubacar was not used to int erpret this result as normal/abnormal . [facility]2022-04-12 12:58:00 Test Item Value Reference Range Interpretation Comments Glucose Lvl (test code = Glucose Lvl) 228 70-99 [place] 538552-04-12 12:58:00 Test Item Value Reference Range Interpretation Comments BUN (test code = BUN) 23 7-22 [place] 538552-04-12 12:58:00 Test Item Value Reference Range Interpretation Comments Creatinine Lvl (test code = Creatinine 0.78 0.50-1.40 Lvl) [facility]2022-04-12 12:58:00 Test Item Value Reference Range Interpretation Comments Sodium Lvl (test code = Sodium Lvl) 138 135-145 [place] 538552-04-12 12:58:00 Test Item Value Reference Range Interpretation Comments Potassium Lvl (test code = Potassium 4.6 3.5-5.1 Lvl) [facility]2022-04-12 12:58:00 Test Item Value Reference Range Interpretation Comments Chloride Lvl (test code = Chloride Lvl) 108 95-109 [place] 538552-04-12 12:58:00 Test Item Value Reference Range Interpretation Comments CO2 (test code = CO2) 23 24-32 [place] 538552-04-12 12:58:00 Test Item Value Reference Range Interpretation Comments Calcium Lvl (test code = Calcium Lvl) 9.0 8.5-10.5 [place] 538552-04-12 12:58:00 Test Item Value Reference Range Interpretation Comments AGAP (test code = AGAP) 11.6 10.0-20.0 [place] 538552-04-12 12:58:00 Test Item Value Reference Range Interpretation Comments eGFR (test code = eGFR) 116 [place] 211002-04-12 12:58:00 Test Item Value Reference Range Interpretation Comments WBC (test code = WBC) 10.5 3.7-10.4 [facility] CenterYoeufhtPMPNJAKXTI5037-20-83 12:58:00 Test Item Value Reference Range Interpretation Comments RBC (test code = RBC) 5.48 4.70-6.10 [place] 211002-04-12 12:58:00 Test Item Value Reference Range Interpretation Comments Hgb (test code = Hgb) 16.0 14.0-18.0 [place] [address]-04-12 12:58:00 Test Item Value Reference Range Interpretation Comments Hct (test code = Hct) 49.8 42.0-54.0 [place] [address]-04-12 12:58:00 Test Item Value Reference Range Interpretation Comments MCV (test code = MCV) 90.8 80.0-94.0 [place] [address]-04-12 12:58:00 Test Item Value Reference Range Interpretation Comments MCH (test code = MCH) 29.1 pg 27.0-31.0 [place] [address]-04-12 12:58:00 Test Item Value Reference Range Interpretation Comments MCHC (test code = MCHC) 32.1 32.0-36.0 [place] [address]-04-12 12:58:00 Test Item Value Reference Range Interpretation Comments RDW (test code = RDW) 15.5 11.5-14.5 [place] [address]-04-12 12:58:00 Test Item Value Reference Range Interpretation Comments Platelet (test code = Platelet) 312 133-450 [facility] CenterXkcyzlyRESTTXBZFG0181-87-08 12:58:00 Test Item Value Reference Range Interpretation Comments MPV (test code = MPV) 8.3 7.4-10.4 [place] [address]-04-12 12:58:00 Test Item Value Reference Range Interpretation Comments PT (test code = PT) 12.9 s 12.0-14.7 [place] [address]-04-12 12:58:00 Test Item Value Reference Range Interpretation Comments INR (test code = INR) 0.98 1 0.85-1.17 [place] 211002-04-12 12:58:00 Test Item Value Reference Range Interpretation Comments PTT (test code = PTT) 27.3 s 22.9-35.8 [place] [address]-04-12 12:58:00 Test Item Value Reference Range Interpretation Comments Segs (test code = Segs) 71.2 45.0-75.0 [place] [address]-04-12 12:58:00 Test Item Value Reference Range Interpretation Comments Lymphocytes (test code = Lymphocytes) 21.1 20.0-40.0 [place] [address]-04-12 12:58:00 Test Item Value Reference Range Interpretation Comments Monocytes (test code = Monocytes) 6.8 2.0-12.0 [place] [address]-04-12 12:58:00 Test Item Value Reference Range Interpretation Comments Eosinophils (test code = 0.1 See_Comment [A utomated message] The Eosinophils) system which ge nerated this result tra nsmitted reference range : <=4.0. The reference r boubacar was not used to int erpret this result as normal/abnormal . [place] [address]-04-12 12:58:00 Test Item Value Reference Range Interpretation Comments Basophils (test code = 0.8 See_Comment [Aut omated message] The Basophils) system which ge nerated this result tra nsmitted reference range : <=1.0. The reference r boubacar was not used to int erpret this result as normal/abnormal . [place] [address]-04-12 12:58:00 Test Item Value Reference Range Interpretation Comments Neutrophils # (test code = Neutrophils 7.5 1.5-8.1 #) [place] [address]-04-12 12:58:00 Test Item Value Reference Range Interpretation Comments Lymphocytes # (test code = Lymphocytes 2.2 1.0-5.5 #) [place] [address]-04-12 12:58:00 Test Item Value Reference Range Interpretation Comments Monocytes # (test code 0.7 See_Comment [Aut omated message] The = Monocytes #) system which generated this result tra nsmitted reference range : <=0.8. The reference r boubacar was not used to int erpret this result as normal/abnormal . [place] [address]-04-12 12:58:00 Test Item Value Reference Range Interpretation Comments Basophils # (test code 0.1 See_Comment [Aut omated message] The = Basophils #) system which generated this result tra nsmitted reference range : <=0.2. The reference r boubacar was not used to int erpret this result as normal/abnormal . [facility] [employer]2022-04-12 11:59:00 Test Item Value Reference Range Interpretation Comments Tube Num CSF (test code = Tube Num CSF) 3 1 [facility] [employer]2022-04-12 11:59:00 Test Item Value Reference Range Interpretation Comments Color CSF (test code Colorless (10/24/21 6:59 = Color CSF) AM) [facility] [id number] 11:59:00 Test Item Value Reference Range Interpretation Comments Clarity CSF (test code = Clear (10/24/21 6:59 Clarity CSF) AM) [facility]2022-04-12 11:59:00 Test Item Value Reference Range Interpretation Comments Supernat CSF (test Colorless (10/24/21 6:59 code = Supernat CSF) AM) [facility] [employer]2022-04-12 11:59:00 Test Item Value Reference Range Interpretation Comments Nucleated Cells CSF 3 See_Comment [Automa lester message] The (test code = Nucleated syste m which generated Cells CSF) this result tra nsmitted reference range : <=53. The reference r boubacar was not used to int erpret this result as normal/abnormal . [facility] [employer]2022-04-12 11:59:00 Test Item Value Reference Range Interpretation Comments RBC CSF (test code = 64 See_Comment [Autom ated message] The RBC CSF) system which ge nerated this result transmit lester reference range : <=03. The reference range was not used to interpr et this result as dany l/abnormal. [facility] [employer]2022-04-12 11:59:00 Test Item Value Reference Range Interpretation Comments Comment CSF (test Differential not performed code = Comment CSF) on WBC count of less than 5. Cell counts performed on CSF greater than two hours after collection may not be dental sales representative due to cellular degradation. [facility]2022-04-12 11:59:00 Test Item Value Reference Range Interpretation Comments Glucose CSF (test code = Glucose CSF) 129 45-80 [facility] [employer] [id number] 11:59:00 Test Item Value Reference Range Interpretation Comments Protein CSF (test code = Protein CSF) 110 15-45 [facility] Stain Miwxxh0560-79-76 11:59:00 Test Item Value Reference Range Interpretation Comments Gram Stain Report Gram Stain Performed By: (test code = Gram [facility] Stain Report) [facility] w/Gram [id number] 11:59:00 Test Item Value Reference Range Interpretation Comments Culture: CSF w/Gram 48 Hour Report - No Stain (test code = Growth, Holding Culture: CSF w/Gram Stain) [facility]2022-04-12 11:59:00 Test Item Value Reference Range Interpretation Comments Tube Num CSF (test code = Tube Num CSF) 3 1 [facility]2022-04-12 11:59:00 Test Item Value Reference Range Interpretation Comments Color CSF (test code Colorless (10/24/21 6:59 = Color CSF) AM) [facility]2022-04-12 11:59:00 Test Item Value Reference Range Interpretation Comments Clarity CSF (test code = Clear (10/24/21 6:59 Clarity CSF) AM) [facility]2022-04-12 11:59:00 Test Item Value Reference Range Interpretation Comments Supernat CSF (test Colorless (10/24/21 6:59 code = Supernat CSF) AM) [facility]2022-04-12 11:59:00 Test Item Value Reference Range Interpretation Comments Nucleated Cells CSF 3 See_Comment [Automa lester message] The (test code = Nucleated syste m which generated Cells CSF) this result tra nsmitted reference range : <=53. The reference r boubacar was not used to int erpret this result as normal/abnormal . [facility]2022-04-12 11:59:00 Test Item Value Reference Range Interpretation Comments RBC CSF (test code = 64 See_Comment [Autom ated message] The RBC CSF) system which ge nerated this result transmit lester reference range : <=03. The reference range was not used to interpr et this result as dany l/abnormal. [facility]2022-04-12 11:59:00 Test Item Value Reference Range Interpretation Comments Comment CSF (test Differential not performed code = Comment CSF) on WBC count of less than 5. Cell counts performed on CSF greater than two hours after collection may not be dental sales representative due to cellular degradation. [facility]2022-04-12 11:59:00 Test Item Value Reference Range Interpretation Comments Glucose CSF (test code = Glucose CSF) 129 45-80 [facility] [id number] 11:59:00 Test Item Value Reference Range Interpretation Comments Protein CSF (test code = Protein CSF) 110 15-45 [facility] Mybypw1907-45-87 11:59:00 Test Item Value Reference Range Interpretation Comments Gram Stain Report Gram Stain Performed By: (test code = Gram [facility] Stain Report) [facility]: CSF w/Gram [id number] 11:59:00 Test Item Value Reference Range Interpretation Comments Culture: CSF w/Gram 48 Hour Report - No Stain (test code = Growth, Holding Culture: CSF w/Gram Stain) [facility]2022-04-12 11:59:00 Test Item Value Reference Range Interpretation Comments Tube Num CSF (test code = Tube Num CSF) 3 1 [facility]2022-04-12 11:59:00 Test Item Value Reference Range Interpretation Comments Color CSF (test code Colorless (10/24/21 6:59 = Color CSF) AM) [facility]2022-04-12 11:59:00 Test Item Value Reference Range Interpretation Comments Clarity CSF (test code = Clear (10/24/21 6:59 Clarity CSF) AM) [facility]2022-04-12 11:59:00 Test Item Value Reference Range Interpretation Comments Supernat CSF (test Colorless (10/24/21 6:59 code = Supernat CSF) AM) [facility]2022-04-12 11:59:00 Test Item Value Reference Range Interpretation Comments Nucleated Cells CSF 3 See_Comment [Automa lester message] The (test code = Nucleated syste m which generated Cells CSF) this result tra nsmitted reference range : <=53. The reference r boubacar was not used to int erpret this result as normal/abnormal . [facility]2022-04-12 11:59:00 Test Item Value Reference Range Interpretation Comments RBC CSF (test code = 64 See_Comment [Autom ated message] The RBC CSF) system which ge nerated this result transmit lester reference range : <=03. The reference range was not used to interpr et this result as dany l/abnormal. [facility]2022-04-12 11:59:00 Test Item Value Reference Range Interpretation Comments Comment CSF (test Differential not performed code = Comment CSF) on WBC count of less than 5. Cell counts performed on CSF greater than two hours after collection may not be dental sales representative due to cellular degradation. [facility]Empir[facility] [id number] 11:59:00 Test Item Value Reference Range Interpretation Comments Glucose CSF (test code = Glucose CSF) 129 45-80 [facility] HospitalB[facility] [id number] 11:59:00 Test Item Value Reference Range Interpretation Comments Protein CSF (test code = Protein CSF) 110 15-45 [facility] Stain Tlzkqo4672-25-06 11:59:00 Test Item Value Reference Range Interpretation Comments Gram Stain Report Gram Stain Performed By: (test code = Gram [facility] Stain Report) [facility]: CSF w/Gram [id number] 11:59:00 Test Item Value Reference Range Interpretation Comments Culture: CSF w/Gram 48 Hour Report - No Stain (test code = Growth, Holding Culture: CSF w/Gram Stain) [facility] HospitalSpinalMotionIAL [id number] 14:46:00 Test Item Value Reference Range Interpretation Comments Hgb A1C (test code = Hgb A1C) 5.6 [facility]annBin[facility] ATEIAL [id number] 14:46:00 Test Item Value Reference Range Interpretation Comments Hgb A1C (test code = Hgb A1C) 5.6 [facility] ATEIAL [id number] 14:46:00 Test Item Value Reference Range Interpretation Comments Hgb A1C (test code = Hgb A1C) 5.6 [facility] youwhoCHEM [id number] 11:43:00 Test Item Value Reference Range Interpretation Comments Glucose Lvl (test code = Glucose Lvl) 418 70-99 [facility]Medichan[facility] Engineering [id number] 11:43:00 Test Item Value Reference Range Interpretation Comments BUN (test code = BUN) 22 7-22 [facility] [id number] 11:43:00 Test Item Value Reference Range Interpretation Comments Creatinine Lvl (test code = Creatinine 1.10 0.50-1.40 Lvl) [facility] [employer] [id number] 11:43:00 Test Item Value Reference Range Interpretation Comments Sodium Lvl (test code = Sodium Lvl) 138 135-145 [place] 538552-04-11 11:43:00 Test Item Value Reference Range Interpretation Comments Potassium Lvl (test code = Potassium 4.9 3.5-5.1 Lvl) [facility]2022-04-11 11:43:00 Test Item Value Reference Range Interpretation Comments Chloride Lvl (test code = Chloride Lvl) 113 95-109 [facility]2022-04-11 11:43:00 Test Item Value Reference Range Interpretation Comments CO2 (test code = CO2) 16 24-32 [place] 538552-04-11 11:43:00 Test Item Value Reference Range Interpretation Comments AGAP (test code = AGAP) 13.9 10.0-20.0 [place] 538552-04-11 11:43:00 Test Item Value Reference Range Interpretation Comments Calcium Lvl (test code = Calcium Lvl) 9.0 8.5-10.5 [facility]2022-04-11 11:43:00 Test Item Value Reference Range Interpretation Comments eGFR (test code = eGFR) 86 [place] 211002-04-11 11:43:00 Test Item Value Reference Range Interpretation Comments WBC (test code = WBC) 10.2 3.7-10.4 [place] 211002-04-11 11:43:00 Test Item Value Reference Range Interpretation Comments RBC (test code = RBC) 5.46 4.70-6.10 [place] 211002-04-11 11:43:00 Test Item Value Reference Range Interpretation Comments Hgb (test code = Hgb) 16.3 14.0-18.0 [place] 211002-04-11 11:43:00 Test Item Value Reference Range Interpretation Comments Hct (test code = Hct) 50.0 42.0-54.0 [place] [address]-04-11 11:43:00 Test Item Value Reference Range Interpretation Comments MCV (test code = MCV) 91.4 80.0-94.0 [place] 211002-04-11 11:43:00 Test Item Value Reference Range Interpretation Comments MCH (test code = MCH) 29.9 pg 27.0-31.0 [place] 211002-04-11 11:43:00 Test Item Value Reference Range Interpretation Comments MCHC (test code = MCHC) 32.7 32.0-36.0 [facility] CenterCnbcgkpKHKSSRECPT5097-37-34 11:43:00 Test Item Value Reference Range Interpretation Comments RDW (test code = RDW) 15.7 11.5-14.5 [facility] CenterNrawdzaTNIIGWOBBK7501-58-35 11:43:00 Test Item Value Reference Range Interpretation Comments Platelet (test code = Platelet) 321 133-450 [facility] CenterOztirliENAMBIBMLF5790-50-28 11:43:00 Test Item Value Reference Range Interpretation Comments MPV (test code = MPV) 8.6 7.4-10.4 [facility] CenterCxxotlwRAFCPQCNNC6408-17-36 11:43:00 Test Item Value Reference Range Interpretation Comments Segs (test code = Segs) 92.0 45.0-75.0 [facility] CenterThvivcvODTAMDQNWL0641-85-21 11:43:00 Test Item Value Reference Range Interpretation Comments Lymphocytes (test code = Lymphocytes) 5.2 20.0-40.0 [place] 211002-04-11 11:43:00 Test Item Value Reference Range Interpretation Comments Monocytes (test code = Monocytes) 1.6 2.0-12.0 [facility] CenterSofgpoaTMECFSPMRX0208-25-48 11:43:00 Test Item Value Reference Range Interpretation Comments Basophils (test code = 1.2 See_Comment [Aut omated message] The Basophils) system which ge nerated this result tra nsmitted reference range : <=1.0. The reference r boubacar was not used to int erpret this result as normal/abnormal . [facility] CenterCxfzyajEKZLWTDOZX4696-08-72 11:43:00 Test Item Value Reference Range Interpretation Comments Neutrophils # (test code = Neutrophils 9.4 1.5-8.1 #) [facility] CenterOjdowcaPKGHCKPNOE2430-96-47 11:43:00 Test Item Value Reference Range Interpretation Comments Lymphocytes # (test code = Lymphocytes 0.5 1.0-5.5 #) [place] 211002-04-11 11:43:00 Test Item Value Reference Range Interpretation Comments Monocytes # (test code 0.2 See_Comment [Aut omated message] The = Monocytes #) system which generated this result tra nsmitted reference range : <=0.8. The reference r boubacar was not used to int erpret this result as normal/abnormal . [place] 211002-04-11 11:43:00 Test Item Value Reference Range Interpretation Comments Basophils # (test code 0.1 See_Comment [Aut omated message] The = Basophils #) system which generated this result tra nsmitted reference range : <=0.2. The reference r boubacar was not used to int erpret this result as normal/abnormal . [place] 538552-04-11 11:43:00 Test Item Value Reference Range Interpretation Comments Glucose Lvl (test code = Glucose Lvl) 418 70-99 [place] 538552-04-11 11:43:00 Test Item Value Reference Range Interpretation Comments BUN (test code = BUN) 22 7-22 [place] 538552-04-11 11:43:00 Test Item Value Reference Range Interpretation Comments Creatinine Lvl (test code = Creatinine 1.10 0.50-1.40 Lvl) [facility]2022-04-11 11:43:00 Test Item Value Reference Range Interpretation Comments Sodium Lvl (test code = Sodium Lvl) 138 135-145 [place] 538552-04-11 11:43:00 Test Item Value Reference Range Interpretation Comments Potassium Lvl (test code = Potassium 4.9 3.5-5.1 Lvl) [facility]2022-04-11 11:43:00 Test Item Value Reference Range Interpretation Comments Chloride Lvl (test code = Chloride Lvl) 113 95-109 [facility]2022-04-11 11:43:00 Test Item Value Reference Range Interpretation Comments CO2 (test code = CO2) 16 24-32 [facility]2022-04-11 11:43:00 Test Item Value Reference Range Interpretation Comments AGAP (test code = AGAP) 13.9 10.0-20.0 [place] 538552-04-11 11:43:00 Test Item Value Reference Range Interpretation Comments Calcium Lvl (test code = Calcium Lvl) 9.0 8.5-10.5 [place] 538552-04-11 11:43:00 Test Item Value Reference Range Interpretation Comments eGFR (test code = eGFR) 86 [place] 211002-04-11 11:43:00 Test Item Value Reference Range Interpretation Comments WBC (test code = WBC) 10.2 3.7-10.4 [facility] CenterVcbfemwVCOOMTTUGT4621-15-85 11:43:00 Test Item Value Reference Range Interpretation Comments RBC (test code = RBC) 5.46 4.70-6.10 [facility] CenterUlsppbrHLNSWWDAJA1887-70-19 11:43:00 Test Item Value Reference Range Interpretation Comments Hgb (test code = Hgb) 16.3 14.0-18.0 [facility] CenterWtghvtcMEAXKJTQLD4105-16-73 11:43:00 Test Item Value Reference Range Interpretation Comments Hct (test code = Hct) 50.0 42.0-54.0 [facility] CenterNbbscmdLRDAVVAALP9494-97-60 11:43:00 Test Item Value Reference Range Interpretation Comments MCV (test code = MCV) 91.4 80.0-94.0 [facility] CenterGttvwxrMOOFZUYTUG0359-67-26 11:43:00 Test Item Value Reference Range Interpretation Comments MCH (test code = MCH) 29.9 pg 27.0-31.0 [facility] CenterKokurkoRSOAOROLPN4669-12-91 11:43:00 Test Item Value Reference Range Interpretation Comments MCHC (test code = MCHC) 32.7 32.0-36.0 [facility] CenterAvulzmrXSWUVNRSLW9484-74-27 11:43:00 Test Item Value Reference Range Interpretation Comments RDW (test code = RDW) 15.7 11.5-14.5 [facility] CenterLnohuoqHHOFBVQKRX7288-05-57 11:43:00 Test Item Value Reference Range Interpretation Comments Platelet (test code = Platelet) 321 133-450 [facility] CenterKwzhgmpXJYGUOURNR2844-47-38 11:43:00 Test Item Value Reference Range Interpretation Comments MPV (test code = MPV) 8.6 7.4-10.4 [facility]QcoknxyRHIDQLOUPH6452-40-54 11:43:00 Test Item Value Reference Range Interpretation Comments Segs (test code = Segs) 92.0 45.0-75.0 [facility] CenterJvrgwnsWJTUHVBYNO1932-87-26 11:43:00 Test Item Value Reference Range Interpretation Comments Lymphocytes (test code = Lymphocytes) 5.2 20.0-40.0 [facility] CenterDowvbgkEJHLEBPCHG7116-41-04 11:43:00 Test Item Value Reference Range Interpretation Comments Monocytes (test code = Monocytes) 1.6 2.0-12.0 [place] [address]-04-11 11:43:00 Test Item Value Reference Range Interpretation Comments Basophils (test code = 1.2 See_Comment [Aut omated message] The Basophils) system which ge nerated this result tra nsmitted reference range : <=1.0. The reference r boubacar was not used to int erpret this result as normal/abnormal . [place] 211002-04-11 11:43:00 Test Item Value Reference Range Interpretation Comments Neutrophils # (test code = Neutrophils 9.4 1.5-8.1 #) [facility] CenterNsujuhhIXLPPKCIAW3756-52-03 11:43:00 Test Item Value Reference Range Interpretation Comments Lymphocytes # (test code = Lymphocytes 0.5 1.0-5.5 #) [place] 211002-04-11 11:43:00 Test Item Value Reference Range Interpretation Comments Monocytes # (test code 0.2 See_Comment [Aut omated message] The = Monocytes #) system which generated this result tra nsmitted reference range : <=0.8. The reference r boubacar was not used to int erpret this result as normal/abnormal . [place] 211002-04-11 11:43:00 Test Item Value Reference Range Interpretation Comments Basophils # (test code 0.1 See_Comment [Aut omated message] The = Basophils #) system which generated this result tra nsmitted reference range : <=0.2. The reference r boubacar was not used to int erpret this result as normal/abnormal . [facility]2022-04-11 11:43:00 Test Item Value Reference Range Interpretation Comments Glucose Lvl (test code = Glucose Lvl) 418 70-99 [place] 538552-04-11 11:43:00 Test Item Value Reference Range Interpretation Comments BUN (test code = BUN) 22 7-22 [place] 538552-04-11 11:43:00 Test Item Value Reference Range Interpretation Comments Creatinine Lvl (test code = Creatinine 1.10 0.50-1.40 Lvl) [place] 538552-04-11 11:43:00 Test Item Value Reference Range Interpretation Comments Sodium Lvl (test code = Sodium Lvl) 138 135-145 [place] 538552-04-11 11:43:00 Test Item Value Reference Range Interpretation Comments Potassium Lvl (test code = Potassium 4.9 3.5-5.1 Lvl) [facility]2022-04-11 11:43:00 Test Item Value Reference Range Interpretation Comments Chloride Lvl (test code = Chloride Lvl) 113 95-109 [place] 538552-04-11 11:43:00 Test Item Value Reference Range Interpretation Comments CO2 (test code = CO2) 16 24-32 [place] 538552-04-11 11:43:00 Test Item Value Reference Range Interpretation Comments AGAP (test code = AGAP) 13.9 10.0-20.0 [place] 538552-04-11 11:43:00 Test Item Value Reference Range Interpretation Comments Calcium Lvl (test code = Calcium Lvl) 9.0 8.5-10.5 [facility]2022-04-11 11:43:00 Test Item Value Reference Range Interpretation Comments eGFR (test code = eGFR) 86 [facility] CenterKtluuaxXUFOIIIMTI8097-95-28 11:43:00 Test Item Value Reference Range Interpretation Comments WBC (test code = WBC) 10.2 3.7-10.4 [place] 211002-04-11 11:43:00 Test Item Value Reference Range Interpretation Comments RBC (test code = RBC) 5.46 4.70-6.10 [facility] CenterYxyfbjzLBQKSDXMLM2346-62-35 11:43:00 Test Item Value Reference Range Interpretation Comments Hgb (test code = Hgb) 16.3 14.0-18.0 [place] 211002-04-11 11:43:00 Test Item Value Reference Range Interpretation Comments Hct (test code = Hct) 50.0 42.0-54.0 [place] 211002-04-11 11:43:00 Test Item Value Reference Range Interpretation Comments MCV (test code = MCV) 91.4 80.0-94.0 [place] 211002-04-11 11:43:00 Test Item Value Reference Range Interpretation Comments MCH (test code = MCH) 29.9 pg 27.0-31.0 [place] 211002-04-11 11:43:00 Test Item Value Reference Range Interpretation Comments MCHC (test code = MCHC) 32.7 32.0-36.0 [place] 211002-04-11 11:43:00 Test Item Value Reference Range Interpretation Comments RDW (test code = RDW) 15.7 11.5-14.5 [facility] CenterYyxxcubCPGPJUIHDR3155-15-25 11:43:00 Test Item Value Reference Range Interpretation Comments Platelet (test code = Platelet) 321 133-450 [place] 211002-04-11 11:43:00 Test Item Value Reference Range Interpretation Comments MPV (test code = MPV) 8.6 7.4-10.4 [facility] CenterIrzqzjqMKETMJUESG0185-68-23 11:43:00 Test Item Value Reference Range Interpretation Comments Segs (test code = Segs) 92.0 45.0-75.0 [place] 211002-04-11 11:43:00 Test Item Value Reference Range Interpretation Comments Lymphocytes (test code = Lymphocytes) 5.2 20.0-40.0 [place] 211002-04-11 11:43:00 Test Item Value Reference Range Interpretation Comments Monocytes (test code = Monocytes) 1.6 2.0-12.0 [facility] CenterDwdljtiLZNBIOFRYD5669-16-09 11:43:00 Test Item Value Reference Range Interpretation Comments Basophils (test code = 1.2 See_Comment [Aut omated message] The Basophils) system which ge nerated this result tra nsmitted reference range : <=1.0. The reference r boubacar was not used to int erpret this result as normal/abnormal . [facility] CenterKvfndncJIIHZQFQMD5225-79-54 11:43:00 Test Item Value Reference Range Interpretation Comments Neutrophils # (test code = Neutrophils 9.4 1.5-8.1 #) [facility] CenterLiadnawVPKTQHQAEV5109-21-29 11:43:00 Test Item Value Reference Range Interpretation Comments Lymphocytes # (test code = Lymphocytes 0.5 1.0-5.5 #) [place] 211002-04-11 11:43:00 Test Item Value Reference Range Interpretation Comments Monocytes # (test code 0.2 See_Comment [Aut omated message] The = Monocytes #) system which generated this result tra nsmitted reference range : <=0.8. The reference r boubacar was not used to int erpret this result as normal/abnormal . [facility] CenterGeofoqgHIWJIPOEYS9802-41-15 11:43:00 Test Item Value Reference Range Interpretation Comments Basophils # (test code 0.1 See_Comment [Aut omated message] The = Basophils #) system which generated this result tra nsmitted reference range : <=0.2. The reference r boubacar was not used to int erpret this result as normal/abnormal . [facility]NynlkpiJNDYUYWNHY1029-13-28 09:18:00 Test Item Value Reference Range Interpretation Comments Coronavirus (COVID-19) Not Detected (10/21/21 OUMOU (test code = 4:18 AM) Coronavirus (COVID-19) OUMOU) [facility] CenterGrxzlodCLEZYYTSDM4851-06-11 09:18:00 Test Item Value Reference Range Interpretation Comments Coronavirus (COVID-19) Not Detected (10/21/21 OUMOU (test code = 4:18 AM) Coronavirus (COVID-19) OUMOU) [facility] CenterDazfilyHVKJGSKFAD6003-01-58 09:18:00 Test Item Value Reference Range Interpretation Comments Coronavirus (COVID-19) Not Detected (10/21/21 OUMOU (test code = 4:18 AM) Coronavirus (COVID-19) OUMOU) [facility]:SUSC:PT:ISOLATE:ORDQN:[id number] 08:19:00 Test Item Value Reference Range Interpretation Comments Culture: Urine (test >100,000 CFU/mL code = Culture: Providencia stuartii Urine) [facility]:SUSC:PT:ISOLATE:ORDQN:[id number] 08:19:00 Test Item Value Reference Range Interpretation Comments Providencia stuartii Providencia stuartii (test code = Providencia stuartii) [facility] AND [id number] 08:19:00 Test Item Value Reference Range Interpretation Comments UA Color (test code = Yellow *NA*(10/21/21 3:19 UA Color) AM) [facility] AND [id number] 08:19:00 Test Item Value Reference Range Interpretation Comments UA Turbidity (test code Marked *ABN*(10/21/21 = UA Turbidity) 3:19 AM) [facility] AND [id number] 08:19:00 Test Item Value Reference Range Interpretation Comments UA Spec Grav (test code = UA Spec 1.013 1 Grav) [facility] AND [id number] 08:19:00 Test Item Value Reference Range Interpretation Comments UA pH (test code = UA pH) 5.0 1 5.0-8.0 [facility] AND [id number] 08:19:00 Test Item Value Reference Range Interpretation Comments UA Protein (test code = UA Negative mg/dL Protein) [facility] AND [id number] 08:19:00 Test Item Value Reference Range Interpretation Comments UA Glucose (test code = UA Negative mg/dL Glucose) [facility] AND [id number] 08:19:00 Test Item Value Reference Range Interpretation Comments UA Ketones (test code = UA Negative mg/dL Ketones) [facility] AND [id number] 08:19:00 Test Item Value Reference Range Interpretation Comments UA Bili (test code = Negative *NA*(10/21/21 UA Bili) 3:19 AM) [facility] AND [id number] 08:19:00 Test Item Value Reference Range Interpretation Comments UA Blood (test code = Small *ABN*(10/21/21 UA Blood) 3:19 AM) [facility] AND [id number] 08:19:00 Test Item Value Reference Range Interpretation Comments UA Urobilinogen (test code = UA no gt 0.1-1.0 Urobilinogen) [facility] AND [id number] 08:19:00 Test Item Value Reference Range Interpretation Comments UA Nitrite (test code Positive *ABN*(10/21/21 = UA Nitrite) 3:19 AM) [facility] AND [id number] 08:19:00 Test Item Value Reference Range Interpretation Comments UA Leuk Est (test code Large *ABN*(10/21/21 3:19 = UA Leuk Est) AM) [facility] AND [id number] 08:19:00 Test Item Value Reference Range Interpretation Comments UA WBC (test code = no gt See_Comment [Automa lester message] The UA WBC) system which ge nerated this result transmit lester reference range : <=5. The reference range was not used to interpr et this result as dany l/abnormal. [facility] AND [id number] 08:19:00 Test Item Value Reference Range Interpretation Comments UA RBC (test code = 8 See_Comment [Automa lester message] The UA RBC) system which ge nerated this result transmit lester reference range : <=2. The reference range was not used to interpr et this result as dany l/abnormal. [facility] [id number] 08:19:00 Test Item Value Reference Range Interpretation Comments UA Bacteria (test code = UA Occasional /HPF Bacteria) [facility] [id number] 08:19:00 Test Item Value Reference Range Interpretation Comments UA Mucus (test code = UA Mucus) Few /LPF [facility] [id number] 08:19:00 Test Item Value Reference Range Interpretation Comments UA Amorph Christi (test code = Occasional /HPF UA Amorph Christi) [facility] [id number] 08:19:00 Test Item Value Reference Range Interpretation Comments UA Sq Epi (test code = UA Sq Epi) [facility] [id number] 08:19:00 Test Item Value Reference Range Interpretation Comments Culture: Urine (test Holding For Better code = Culture: Urine) [facility]SUSC:PT:ISOLATE:ORDQN:[id number] 08:19:00 Test Item Value Reference Range Interpretation Comments Culture: Urine (test >100,000 CFU/mL code = Culture: Providencia stuartii Urine) [facility]annCEFTRIAXONE:SUSC:PT:ISOLATE:ORDQN:[id number] 08:19:00 Test Item Value Reference Range Interpretation Comments Providencia stuartii Providencia stuartii (test code = Providencia stuartii) [facility] [id number] 08:19:00 Test Item Value Reference Range Interpretation Comments UA Color (test code = Yellow *NA*(10/21/21 3:19 UA Color) AM) [facility] [id number] 08:19:00 Test Item Value Reference Range Interpretation Comments UA Turbidity (test code Marked *ABN*(10/21/21 = UA Turbidity) 3:19 AM) [facility] [id number] 08:19:00 Test Item Value Reference Range Interpretation Comments UA Spec Grav (test code = UA Spec 1.013 1 Grav) [facility] AND [id number] 08:19:00 Test Item Value Reference Range Interpretation Comments UA pH (test code = UA pH) 5.0 1 5.0-8.0 [facility] AND [id number] 08:19:00 Test Item Value Reference Range Interpretation Comments UA Protein (test code = UA Negative mg/dL Protein) [facility] AND [id number] 08:19:00 Test Item Value Reference Range Interpretation Comments UA Glucose (test code = UA Negative mg/dL Glucose) [facility] AND [id number] 08:19:00 Test Item Value Reference Range Interpretation Comments UA Ketones (test code = UA Negative mg/dL Ketones) [facility] AND [id number] 08:19:00 Test Item Value Reference Range Interpretation Comments UA Bili (test code = Negative *NA*(10/21/21 UA Bili) 3:19 AM) [facility] AND [id number] 08:19:00 Test Item Value Reference Range Interpretation Comments UA Blood (test code = Small *ABN*(10/21/21 UA Blood) 3:19 AM) [facility] AND [id number] 08:19:00 Test Item Value Reference Range Interpretation Comments UA Urobilinogen (test code = UA no gt 0.1-1.0 Urobilinogen) [facility] AND [id number] 08:19:00 Test Item Value Reference Range Interpretation Comments UA Nitrite (test code Positive *ABN*(10/21/21 = UA Nitrite) 3:19 AM) [facility] AND [id number] 08:19:00 Test Item Value Reference Range Interpretation Comments UA Leuk Est (test code Large *ABN*(10/21/21 3:19 = UA Leuk Est) AM) [facility] AND [id number] 08:19:00 Test Item Value Reference Range Interpretation Comments UA WBC (test code = no gt See_Comment [Automa lester message] The UA WBC) system which ge nerated this result transmit lester reference range : <=5. The reference range was not used to interpr et this result as dany l/abnormal. [facility] AND [id number] 08:19:00 Test Item Value Reference Range Interpretation Comments UA RBC (test code = 8 See_Comment [Automa lester message] The UA RBC) system which ge nerated this result transmit lester reference range : <=2. The reference range was not used to interpr et this result as dany l/abnormal. [facility] [id number] 08:19:00 Test Item Value Reference Range Interpretation Comments UA Bacteria (test code = UA Occasional /HPF Bacteria) [facility] [id number] 08:19:00 Test Item Value Reference Range Interpretation Comments UA Mucus (test code = UA Mucus) Few /LPF [facility] [id number] 08:19:00 Test Item Value Reference Range Interpretation Comments UA Amorph Christi (test code = Occasional /HPF UA Amorph Christi) [facility] [id number] 08:19:00 Test Item Value Reference Range Interpretation Comments UA Sq Epi (test code = UA Sq Epi) None [facility] [id number] 08:19:00 Test Item Value Reference Range Interpretation Comments Culture: Urine (test Holding For Better code = Culture: Urine) Growth [facility] CenterannCEFTRIAXONE:SUSC:PT:ISOLATE:ORDQN:[id number] 08:19:00 Test Item Value Reference Range Interpretation Comments Culture: Urine (test >100,000 CFU/mL code = Culture: Providencia stuartii Urine) [facility] HermannCEFTRIAXONE:SUSC:PT:ISOLATE:ORDQN:[id number] 08:19:00 Test Item Value Reference Range Interpretation Comments Providencia stuartii Providencia stuartii (test code = Providencia stuartii) [facility] [id number] 08:19:00 Test Item Value Reference Range Interpretation Comments UA Color (test code = Yellow *NA*(10/21/21 3:19 UA Color) AM) [facility] [id number] 08:19:00 Test Item Value Reference Range Interpretation Comments UA Turbidity (test code Marked *ABN*(10/21/21 = UA Turbidity) 3:19 AM) [facility] [id number] 08:19:00 Test Item Value Reference Range Interpretation Comments UA Spec Grav (test code = UA Spec 1.013 1 Grav) [facility] AND [id number] 08:19:00 Test Item Value Reference Range Interpretation Comments UA pH (test code = UA pH) 5.0 1 5.0-8.0 [facility] AND [id number] 08:19:00 Test Item Value Reference Range Interpretation Comments UA Protein (test code = UA Negative mg/dL Protein) [facility] AND [id number] 08:19:00 Test Item Value Reference Range Interpretation Comments UA Glucose (test code = UA Negative mg/dL Glucose) [facility] AND [id number] 08:19:00 Test Item Value Reference Range Interpretation Comments UA Ketones (test code = UA Negative mg/dL Ketones) [facility] AND [id number] 08:19:00 Test Item Value Reference Range Interpretation Comments UA Bili (test code = Negative *NA*(10/21/21 UA Bili) 3:19 AM) [facility] AND [id number] 08:19:00 Test Item Value Reference Range Interpretation Comments UA Blood (test code = Small *ABN*(10/21/21 UA Blood) 3:19 AM) [facility] AND [id number] 08:19:00 Test Item Value Reference Range Interpretation Comments UA Urobilinogen (test code = UA no gt 0.1-1.0 Urobilinogen) [facility] AND [id number] 08:19:00 Test Item Value Reference Range Interpretation Comments UA Nitrite (test code Positive *ABN*(10/21/21 = UA Nitrite) 3:19 AM) [facility] AND [id number] 08:19:00 Test Item Value Reference Range Interpretation Comments UA Leuk Est (test code Large *ABN*(10/21/21 3:19 = UA Leuk Est) AM) [facility] AND [id number] 08:19:00 Test Item Value Reference Range Interpretation Comments UA WBC (test code = no gt See_Comment [Automa lester message] The UA WBC) system which ge nerated this result transmit lester reference range : <=5. The reference range was not used to interpr et this result as dany l/abnormal. [facility] AND [id number] 08:19:00 Test Item Value Reference Range Interpretation Comments UA RBC (test code = 8 See_Comment [Automa lester message] The UA RBC) system which ge nerated this result transmit lester reference range : <=2. The reference range was not used to interpr et this result as dany l/abnormal. [facility] AND [id number] 08:19:00 Test Item Value Reference Range Interpretation Comments UA Bacteria (test code = UA Occasional /HPF Bacteria) [facility] AND [id number] 08:19:00 Test Item Value Reference Range Interpretation Comments UA Mucus (test code = UA Mucus) Few /LPF [facility] AND [id number] 08:19:00 Test Item Value Reference Range Interpretation Comments UA Amorph Christi (test code = Occasional /HPF UA Amorph Christi) [facility] AND [id number] 08:19:00 Test Item Value Reference Range Interpretation Comments UA Sq Epi (test code = UA Sq Epi) None [facility] [id number] 08:19:00 Test Item Value Reference Range Interpretation Comments Culture: Urine (test Holding For Better code = Culture: Urine) Growth [facility] [employer] [id number] 00:20:00 Test Item Value Reference Range Interpretation Comments ABO/Rh (test code = ABO/Rh) AB POS [facility] [employer] [id number] 00:20:00 Test Item Value Reference Range Interpretation Comments Antibody Scrn (test Negative (10/20/21 7:20 code = Antibody Scrn) PM) [facility] [employer] [id number] 00:20:00 Test Item Value Reference Range Interpretation Comments Glucose Lvl (test code = Glucose Lvl) 74 70-99 [facility] [employer] [id number] 00:20:00 Test Item Value Reference Range Interpretation Comments BUN (test code = BUN) 15 - [facility] [id number] 00:20:00 Test Item Value Reference Range Interpretation Comments Creatinine Lvl (test code = Creatinine 0.61 0.50-1.40 Lvl) [facility] [employer] [id number] 00:20:00 Test Item Value Reference Range Interpretation Comments Sodium Lvl (test code = Sodium Lvl) 139 135-145 [place] 538552-04-09 00:20:00 Test Item Value Reference Range Interpretation Comments Potassium Lvl (test code = Potassium 4.9 3.5-5.1 Lvl) [place] 538552-04-09 00:20:00 Test Item Value Reference Range Interpretation Comments Chloride Lvl (test code = Chloride Lvl) 105 95-109 [place] 538552-04-09 00:20:00 Test Item Value Reference Range Interpretation Comments CO2 (test code = CO2) 30 24-32 [place] 538552-04-09 00:20:00 Test Item Value Reference Range Interpretation Comments Calcium Lvl (test code = Calcium Lvl) 9.5 8.5-10.5 [place] 538552-04-09 00:20:00 Test Item Value Reference Range Interpretation Comments AGAP (test code = AGAP) 8.9 10.0-20.0 [place] 538552-04-09 00:20:00 Test Item Value Reference Range Interpretation Comments eGFR (test code = eGFR) 129 [place] 538552-04-09 00:20:00 Test Item Value Reference Range Interpretation Comments Lactic Acid Lvl (test code = Lactic 1.2 0.5-2.2 Acid Lvl) [place] 538552-04-09 00:20:00 Test Item Value Reference Range Interpretation Comments Procalcitonin Lvl (test 0.09 See_Comment [Au tomated message] code = Procalcitonin Lvl) e system which generated this result transmitted ref erence range: <=0.10. The reference range was not used to interpr et this result as normal/abnormal . [place] 211002-04-09 00:20:00 Test Item Value Reference Range Interpretation Comments WBC (test code = WBC) 10.1 3.7-10.4 [place] 211002-04-09 00:20:00 Test Item Value Reference Range Interpretation Comments RBC (test code = RBC) 5.14 4.70-6.10 [place] [address]-04-09 00:20:00 Test Item Value Reference Range Interpretation Comments Hgb (test code = Hgb) 15.5 14.0-18.0 [facility] [id number] 00:20:00 Test Item Value Reference Range Interpretation Comments Hct (test code = Hct) 46.5 42.0-54.0 [facility] C[id number] 00:20:00 Test Item Value Reference Range Interpretation Comments MCV (test code = MCV) 90.5 80.0-94.0 [facility] [id number] 00:20:00 Test Item Value Reference Range Interpretation Comments MCH (test code = MCH) 30.1 pg 27.0-31.0 [facility] CenterDwtpizbUUBBGAJTBA1587-50-48 00:20:00 Test Item Value Reference Range Interpretation Comments MCHC (test code = MCHC) 33.3 32.0-36.0 [facility] CenterCcfazmmKZAXFQQYIP5739-66-63 00:20:00 Test Item Value Reference Range Interpretation Comments RDW (test code = RDW) 15.7 11.5-14.5 [facility] CenterYtwnflmUVSZTIVWUJ6770-93-32 00:20:00 Test Item Value Reference Range Interpretation Comments Platelet (test code = Platelet) 302 133-450 [facility] [id number] 00:20:00 Test Item Value Reference Range Interpretation Comments MPV (test code = MPV) 8.9 7.4-10.4 [facility] Cent[id number] 00:20:00 Test Item Value Reference Range Interpretation Comments Sed Rate (test code = 17 See_Comment [Auto mated message] The Sed Rate) system which ge nerated this result transmit lester reference range : <=15. The reference range was not used to interpr et this result as dany l/abnormal. [facility] C[id number] 00:20:00 Test Item Value Reference Range Interpretation Comments PT (test code = PT) 13.1 s 12.0-14.7 [facility] [facility]RL[facility]X9129[facility]13-87 00:20:00 Test Item Value Reference Range Interpretation Comments INR (test code = INR) 1.00 1 0.85-1.17 [place] 211002-04-09 00:20:00 Test Item Value Reference Range Interpretation Comments PTT (test code = PTT) 31.5 s 22.9-35.8 [place] 211002-04-09 00:20:00 Test Item Value Reference Range Interpretation Comments Segs (test code = Segs) 68.7 45.0-75.0 [facility]DwzacfoQGSCFBMQIY2915-35-92 00:20:00 Test Item Value Reference Range Interpretation Comments Lymphocytes (test code = Lymphocytes) 19.6 20.0-40.0 [facility] CenterUndelqoPPHACMBIKW1416-21-31 00:20:00 Test Item Value Reference Range Interpretation Comments Monocytes (test code = Monocytes) 9.4 2.0-12.0 [facility] CenterQrssduqQSMEWSHCZG5151-23-59 00:20:00 Test Item Value Reference Range Interpretation Comments Eosinophils (test code = 1.4 See_Comment [A utomated message] The Eosinophils) system which ge nerated this result tra nsmitted reference range : <=4.0. The reference r boubacar was not used to int erpret this result as normal/abnormal . [facility] CenterNyuppvtPUVRFJZTVB9876-46-99 00:20:00 Test Item Value Reference Range Interpretation Comments Basophils (test code = 0.9 See_Comment [Aut omated message] The Basophils) system which ge nerated this result tra nsmitted reference range : <=1.0. The reference r boubacar was not used to int erpret this result as normal/abnormal . [facility] CenterKvyryugQUVCFIEZOL4987-38-32 00:20:00 Test Item Value Reference Range Interpretation Comments Neutrophils # (test code = Neutrophils 6.9 1.5-8.1 #) [facility] CenterLeunlspVKJPCIJUFJ4570-95-97 00:20:00 Test Item Value Reference Range Interpretation Comments Lymphocytes # (test code = Lymphocytes 2.0 1.0-5.5 #) [place] 211002-04-09 00:20:00 Test Item Value Reference Range Interpretation Comments Monocytes # (test code 1.0 See_Comment [Aut omated message] The = Monocytes #) system which generated this result tra nsmitted reference range : <=0.8. The reference r bobuacar was not used to int erpret this result as normal/abnormal . [place] 211002-04-09 00:20:00 Test Item Value Reference Range Interpretation Comments Eosinophils # (test code 0.1 See_Comment [A utomated message] The = Eosinophils #) system whic h generated this result tra nsmitted reference range : <=0.5. The reference r boubacar was not used to int erpret this result as normal/abnormal . [facility] IplbijwDTDAFKPXCY1413-64-28 00:20:00 Test Item Value Reference Range Interpretation Comments Basophils # (test code 0.1 See_Comment [Aut omated message] The = Basophils #) system which generated this result tra nsmitted reference range : <=0.2. The reference r boubacar was not used to int erpret this result as normal/abnormal . [facility] LoxvqroTWXXJZDFUL5178-20-65 00:20:00 Test Item Value Reference Range Interpretation Comments C-REACTIVE PROTEIN (test code = 13.2 C-REACTIVE PROTEIN) [facility] [employer] [id number] 00:20:00 Test Item Value Reference Range Interpretation Comments ABO/Rh (test code = ABO/Rh) AB POS [facility] [employer] [id number] 00:20:00 Test Item Value Reference Range Interpretation Comments Antibody Scrn (test Negative (10/20/21 7:20 code = Antibody Scrn) PM) [facility] [employer] [id number] 00:20:00 Test Item Value Reference Range Interpretation Comments Glucose Lvl (test code = Glucose Lvl) 74 70-99 [facility] [employer]2022-04-09 00:20:00 Test Item Value Reference Range Interpretation Comments BUN (test code = BUN) 15 -22 [facility] [employer]2022-04-09 00:20:00 Test Item Value Reference Range Interpretation Comments Creatinine Lvl (test code = Creatinine 0.61 0.50-1.40 Lvl) [facility] [employer]2022-04-09 00:20:00 Test Item Value Reference Range Interpretation Comments Sodium Lvl (test code = Sodium Lvl) 139 135-145 [facility] [employer]2022-04-09 00:20:00 Test Item Value Reference Range Interpretation Comments Potassium Lvl (test code = Potassium 4.9 3.5-5.1 Lvl) [facility] [employer] [id number] 00:20:00 Test Item Value Reference Range Interpretation Comments Chloride Lvl (test code = Chloride Lvl) 105 95-109 [facility] [employer] [id number] 00:20:00 Test Item Value Reference Range Interpretation Comments CO2 (test code = CO2) 30 24-32 [place] 538552-04-09 00:20:00 Test Item Value Reference Range Interpretation Comments Calcium Lvl (test code = Calcium Lvl) 9.5 8.5-10.5 [place] 538552-04-09 00:20:00 Test Item Value Reference Range Interpretation Comments AGAP (test code = AGAP) 8.9 10.0-20.0 [place] 538552-04-09 00:20:00 Test Item Value Reference Range Interpretation Comments eGFR (test code = eGFR) 129 [facility]2022-04-09 00:20:00 Test Item Value Reference Range Interpretation Comments Lactic Acid Lvl (test code = Lactic 1.2 0.5-2.2 Acid Lvl) [place] 538552-04-09 00:20:00 Test Item Value Reference Range Interpretation Comments Procalcitonin Lvl (test 0.09 See_Comment [Au tomated message] code = Procalcitonin Lvl) e system which generated this result transmitted ref erence range: <=0.10. The reference range was not used to interpr et this result as normal/abnormal . [facility] CenterLfqkvppOHLXZBRIIT8514-06-74 00:20:00 Test Item Value Reference Range Interpretation Comments WBC (test code = WBC) 10.1 3.7-10.4 [place] 211002-04-09 00:20:00 Test Item Value Reference Range Interpretation Comments RBC (test code = RBC) 5.14 4.70-6.10 [place] 211002-04-09 00:20:00 Test Item Value Reference Range Interpretation Comments Hgb (test code = Hgb) 15.5 14.0-18.0 [place] 211002-04-09 00:20:00 Test Item Value Reference Range Interpretation Comments Hct (test code = Hct) 46.5 42.0-54.0 [place] 211002-04-09 00:20:00 Test Item Value Reference Range Interpretation Comments MCV (test code = MCV) 90.5 80.0-94.0 [place] 211002-04-09 00:20:00 Test Item Value Reference Range Interpretation Comments MCH (test code = MCH) 30.1 pg 27.0-31.0 [place] 211002-04-09 00:20:00 Test Item Value Reference Range Interpretation Comments MCHC (test code = MCHC) 33.3 32.0-36.0 [facility] CenterGipsexqRMLTBUPEPS7159-64-41 00:20:00 Test Item Value Reference Range Interpretation Comments RDW (test code = RDW) 15.7 11.5-14.5 [place] 211002-04-09 00:20:00 Test Item Value Reference Range Interpretation Comments Platelet (test code = Platelet) 302 133-450 [facility] CenterGayesddZNJRYMTNRU9510-34-56 00:20:00 Test Item Value Reference Range Interpretation Comments MPV (test code = MPV) 8.9 7.4-10.4 [facility] CenterIgoxysmURCOZMRZFZ7111-61-08 00:20:00 Test Item Value Reference Range Interpretation Comments Sed Rate (test code = 17 See_Comment [Auto mated message] The Sed Rate) system which ge nerated this result transmit lester reference range : <=15. The reference range was not used to interpr et this result as dany l/abnormal. [facility] CenterGbuctuoSQMMUPQTME6603-53-30 00:20:00 Test Item Value Reference Range Interpretation Comments PT (test code = PT) 13.1 s 12.0-14.7 [place] 211002-04-09 00:20:00 Test Item Value Reference Range Interpretation Comments INR (test code = INR) 1.00 1 0.85-1.17 [place] 211002-04-09 00:20:00 Test Item Value Reference Range Interpretation Comments PTT (test code = PTT) 31.5 s 22.9-35.8 [place] 211002-04-09 00:20:00 Test Item Value Reference Range Interpretation Comments Segs (test code = Segs) 68.7 45.0-75.0 [place] [address]-04-09 00:20:00 Test Item Value Reference Range Interpretation Comments Lymphocytes (test code = Lymphocytes) 19.6 20.0-40.0 [place] [address]-04-09 00:20:00 Test Item Value Reference Range Interpretation Comments Monocytes (test code = Monocytes) 9.4 2.0-12.0 [place] [address]-04-09 00:20:00 Test Item Value Reference Range Interpretation Comments Eosinophils (test code = 1.4 See_Comment [A utomated message] The Eosinophils) system which ge nerated this result tra nsmitted reference range : <=4.0. The reference r boubacar was not used to int erpret this result as normal/abnormal . [facility] CenterYmgeuviVRXKFFCBDP7907-69-48 00:20:00 Test Item Value Reference Range Interpretation Comments Basophils (test code = 0.9 See_Comment [Aut omated message] The Basophils) system which ge nerated this result tra nsmitted reference range : <=1.0. The reference r boubacar was not used to int erpret this result as normal/abnormal . [facility] CenterUicshznNXWFMCZRCS1813-03-18 00:20:00 Test Item Value Reference Range Interpretation Comments Neutrophils # (test code = Neutrophils 6.9 1.5-8.1 #) [facility] CenterBrtywovIBBLEBRJKF6107-72-34 00:20:00 Test Item Value Reference Range Interpretation Comments Lymphocytes # (test code = Lymphocytes 2.0 1.0-5.5 #) [facility] CenterGbnckbqMFSXASZWNO3599-51-02 00:20:00 Test Item Value Reference Range Interpretation Comments Monocytes # (test code 1.0 See_Comment [Aut omated message] The = Monocytes #) system which generated this result tra nsmitted reference range : <=0.8. The reference r boubacar was not used to int erpret this result as normal/abnormal . [facility] CenterDniniwxZZXPOBEKQN7683-30-48 00:20:00 Test Item Value Reference Range Interpretation Comments Eosinophils # (test code 0.1 See_Comment [A utomated message] The = Eosinophils #) system [facility] h generated this result tra nsmitted reference range : <=0.5. The reference r boubacar was not used to int erpret this result as normal/abnormal . [facility] CenterHlzgkpqYADQIQCVPA7632-37-78 00:20:00 Test Item Value Reference Range Interpretation Comments Basophils # (test code 0.1 See_Comment [Aut omated message] The = Basophils #) system which generated this result tra nsmitted reference range : <=0.2. The reference r boubacar was not used to int erpret this result as normal/abnormal . [facility]yykgpnTLFQSDBXQB9542-94-49 00:20:00 Test Item Value Reference Range Interpretation Comments C-REACTIVE PROTEIN (test code = 13.2 C-REACTIVE PROTEIN) [facility] [id number] 00:20:00 Test Item Value Reference Range Interpretation Comments ABO/Rh (test code = ABO/Rh) AB POS [facility]XeebelEmber[facility] [employer] [facility] [id number] 00:20:00 Test Item Value Reference Range Interpretation Comments Antibody Scrn (test Negative (10/20/21 7:20 code = Antibody Scrn) PM) [facility] [employer] [id number] 00:20:00 Test Item Value Reference Range Interpretation Comments Glucose Lvl (test code = Glucose Lvl) 74 70-99 [facility] [employer] [id number] 00:20:00 Test Item Value Reference Range Interpretation Comments BUN (test code = BUN) 15 7-22 [facility] [employer] [id number] 00:20:00 Test Item Value Reference Range Interpretation Comments Creatinine Lvl (test code = Creatinine 0.61 0.50-1.40 Lvl) [facility] [employer] IWEZQ7527-39-22 00:20:00 Test Item Value Reference Range Interpretation Comments Sodium Lvl (test code = Sodium Lvl) 139 135-145 [facility] [employer] OAEEZ6355-10-07 00:20:00 Test Item Value Reference Range Interpretation Comments Potassium Lvl (test code = Potassium 4.9 3.5-5.1 Lvl) [facility] [employer] [id number] 00:20:00 Test Item Value Reference Range Interpretation Comments Chloride Lvl (test code = Chloride Lvl) 105 95-109 [facility] [employer] [id number] 00:20:00 Test Item Value Reference Range Interpretation Comments CO2 (test code = CO2) 30 24-32 [facility] [employer] [id number] 00:20:00 Test Item Value Reference Range Interpretation Comments Calcium Lvl (test code = Calcium Lvl) 9.5 8.5-10.5 [facility] [employer] [id number] 00:20:00 Test Item Value Reference Range Interpretation Comments AGAP (test code = AGAP) 8.9 10.0-20.0 [facility] [employer] [id number] 00:20:00 Test Item Value Reference Range Interpretation Comments eGFR (test code = eGFR) 129 [facility] [employer] [id number] 00:20:00 Test Item Value Reference Range Interpretation Comments Lactic Acid Lvl (test code = Lactic 1.2 0.5-2.2 Acid Lvl) [facility]2022-04-09 00:20:00 Test Item Value Reference Range Interpretation Comments Procalcitonin Lvl (test 0.09 See_Comment [Au tomated message] code = Procalcitonin Lvl) e system which generated this result transmitted ref erence range: <=0.10. The reference range was not used to interpr et this result as normal/abnormal . [facility] CenterFcrcqfcRPQVCAYEXL2965-97-84 00:20:00 Test Item Value Reference Range Interpretation Comments WBC (test code = WBC) 10.1 3.7-10.4 [facility] CenterMwallanRMOKBXXPAM3483-28-15 00:20:00 Test Item Value Reference Range Interpretation Comments RBC (test code = RBC) 5.14 4.70-6.10 [facility] CenterHebhwlnOHJOPKOPZH0694-07-19 00:20:00 Test Item Value Reference Range Interpretation Comments Hgb (test code = Hgb) 15.5 14.0-18.0 [facility] CenterPitjbvcNJTUXGGMNJ7889-27-96 00:20:00 Test Item Value Reference Range Interpretation Comments Hct (test code = Hct) 46.5 42.0-54.0 [place] 211002-04-09 00:20:00 Test Item Value Reference Range Interpretation Comments MCV (test code = MCV) 90.5 80.0-94.0 [facility] CenterUbdvfggOKVPDTAHDB0958-70-72 00:20:00 Test Item Value Reference Range Interpretation Comments MCH (test code = MCH) 30.1 pg 27.0-31.0 [facility] CenterXbuwywuUXERVAQCKA1808-74-31 00:20:00 Test Item Value Reference Range Interpretation Comments MCHC (test code = MCHC) 33.3 32.0-36.0 [place] 211002-04-09 00:20:00 Test Item Value Reference Range Interpretation Comments RDW (test code = RDW) 15.7 11.5-14.5 [place] 211002-04-09 00:20:00 Test Item Value Reference Range Interpretation Comments Platelet (test code = Platelet) 302 133-450 [facility] CenterUbfymmiIQYXIWFXIG4078-34-17 00:20:00 Test Item Value Reference Range Interpretation Comments MPV (test code = MPV) 8.9 7.4-10.4 [place] 211002-04-09 00:20:00 Test Item Value Reference Range Interpretation Comments Sed Rate (test code = 17 See_Comment [Auto mated message] The Sed Rate) system which ge nerated this result transmit lester reference range : <=15. The reference range was not used to interpr et this result as dany l/abnormal. [facility] CenterDqgqokzTEGJLTWBSO2833-30-13 00:20:00 Test Item Value Reference Range Interpretation Comments PT (test code = PT) 13.1 s 12.0-14.7 [facility] CenterDhhdhvtEVKIQVANZH3083-53-22 00:20:00 Test Item Value Reference Range Interpretation Comments INR (test code = INR) 1.00 1 0.85-1.17 [place] 211002-04-09 00:20:00 Test Item Value Reference Range Interpretation Comments PTT (test code = PTT) 31.5 s 22.9-35.8 [place] 211002-04-09 00:20:00 Test Item Value Reference Range Interpretation Comments Segs (test code = Segs) 68.7 45.0-75.0 [place] 211002-04-09 00:20:00 Test Item Value Reference Range Interpretation Comments Lymphocytes (test code = Lymphocytes) 19.6 20.0-40.0 [place] 211002-04-09 00:20:00 Test Item Value Reference Range Interpretation Comments Monocytes (test code = Monocytes) 9.4 2.0-12.0 [place] 211002-04-09 00:20:00 Test Item Value Reference Range Interpretation Comments Eosinophils (test code = 1.4 See_Comment [A utomated message] The Eosinophils) system which ge nerated this result tra nsmitted reference range : <=4.0. The reference r boubacar was not used to int erpret this result as normal/abnormal . [place] 211002-04-09 00:20:00 Test Item Value Reference Range Interpretation Comments Basophils (test code = 0.9 See_Comment [Aut omated message] The Basophils) system which ge nerated this result tra nsmitted reference range : <=1.0. The reference r boubacar was not used to int erpret this result as normal/abnormal . [facility] CenterXhiqnigOTFJLGBNIB5228-55-30 00:20:00 Test Item Value Reference Range Interpretation Comments Neutrophils # (test code = Neutrophils 6.9 1.5-8.1 #) [facility] CenterHcnoustUNDUXJCMRD5708-90-53 00:20:00 Test Item Value Reference Range Interpretation Comments Lymphocytes # (test code = Lymphocytes 2.0 1.0-5.5 #) [facility] CenterPsnhayrTPQUHYCAOH2252-24-49 00:20:00 Test Item Value Reference Range Interpretation Comments Monocytes # (test code 1.0 See_Comment [Aut omated message] The = Monocytes #) system which generated this result tra nsmitted reference range : <=0.8. The reference r boubacar was not used to int erpret this result as normal/abnormal . [facility] CenterVkhqgwqAAMWTDGYLJ3394-94-91 00:20:00 Test Item Value Reference Range Interpretation Comments Eosinophils # (test code 0.1 See_Comment [A utomated message] The = Eosinophils #) system whic h generated this result tra nsmitted reference range : <=0.5. The reference r boubacar was not used to int erpret this result as normal/abnormal . [facility] CenterAgstvkoDPBDYVGKOT1962-35-74 00:20:00 Test Item Value Reference Range Interpretation Comments Basophils # (test code 0.1 See_Comment [Aut omated message] The = Basophils #) system which generated this result tra nsmitted reference range : <=0.2. The reference r boubacar was not used to int erpret this result as normal/abnormal . [facility]QfhivjoVMATMWYBXP7689-54-07 00:20:00 Test Item Value Reference Range Interpretation Comments C-REACTIVE PROTEIN (test code = 13.2 C-REACTIVE PROTEIN) [facility] WITH [id number] 04:47:32 Test Item Value Reference Range Interpretation [...] RDW-SD (test code = 45.7 fL 38.5-51.6 91369-5) RDW-CV (test code = 14.6 % 12.1-15.4 788-0) PLT (test code = See_Comment [Automated 777-3) message] The sy stem which generated this result transmitted reference range : 150 - 328 10*3/ ?L. The reference r boubacar was not used to interpret this result as normal/abnormal . MPV (test code = 11.0 fL 9.8-13.0 64505-5) NRBC/100 WBC (test See_Comment [Automat ed code = 5338993286) message] The system which generated this result transmitted reference range : 0.0 - 10.0 /100 WBCs. The refer ence range was not u sed to interpret th is result as normal/abnormal . NRBC x10^3 (test code <0.01 See_Comment [Auto mated = [id number]) message] The s ystem which generated this result transmitted reference range : 10*3/?L. The reference range was not used to interpret this result as normal/abnormal . GRAN MAT (NEUT) % 72.2 % (test code = 770-8) IMM GRAN % (test code 0.60 % = 9888874332) LYMPH % (test code = 17.7 % 736-9) MONO % (test code = 7.4 % 5905-5) EOS % (test code = 1.8 % 713-8) BASO % (test code = 0.3 % 706-2) GRAN MAT x10^3(ANC) 9.09 10*3/uL 1.99-6.95 H (test code = 5134827074) IMM GRAN x10^3 (test 0.07 10*3/uL 0.00-0.06 H code = 2299024388) LYMPH x10^3 (test code 2.22 10*3/uL 1.09-3.23 = 731-0) MONO x10^3 (test code 0.93 10*3/uL 0.36-1.02 = 742-7) EOS x10^3 (test code = 0.22 10*3/uL 0.06-0.53 711-2) BASO x10^3 (test code 0.04 10*3/uL 0.01-0.09 = 704-7) Lab Interpretation Abnormal (test code = 69606-1) [facility]. METABOLIC PANEL (96035)2021-10-16 04:36:41 Test Item Value Reference Range Interpretation Comments NA (test code = 138 mmol/L 135-145 2074683474) K (test code = 4.6 mmol/L 3.5-5.0 9931843832) CL (test code = 105 mmol/L 98-108 8103353814) CO2 TOTAL (test code = 21 mmol/L 23-31 L 8553155684) AGAP (test code = 2-16 5937477700) BUN (test code = 13 mg/dL 7-23 8565774524) GLUCOSE (test code = 167 mg/dL 70-110 H 5426634691) CREATININE (test code = 0.48 mg/dL 0.60-1.25 L 8155758415) TOTAL BILI (test code = 0.8 mg/dL 0.1-1.8 0400791023) CALCIUM (test code = 9.3 mg/dL 8.6-10.6 1483567773) T PROTEIN (test code = 7.6 g/dL 6.3-8.2 6752047175) ALBUMIN (test code = 4.2 g/dL 3.5-5.0 1449425430) ALK PHOS (test code = 98 U/L 34-122 5647666635) ALTv (test code = 71 U/L 5-50 H 1742-6) AST(SGOT) (test code = 36 U/L 13-40 4605189690) eGFR (test code = mL/min/1.73m2 7948693648) ARPITA (test code = ARPITA) Association of [...] tests). Lab Interpretation Abnormal (test code = 80519-4) [facility] 04:36:41 Test Item Value Reference Range Interpretation Comments MAGNESIUM (test code = 1876075290) 1.6 mg/dL 1.7-2.4 L Lab Interpretation (test code = Abnormal 09183-9) [facility] CenterHotlease.Com OKTELKB4851-85-17 07:52:00 Test Item Value Reference Range Interpretation Comments ABO/Rh (test code = ABO/Rh) AB POS [facility] [employer] [id number] 07:52:00 Test Item Value Reference Range Interpretation Comments Antibody Scrn (test Negative (10/09/21 2:52 code = Antibody Scrn) AM) [employer] [id number] 07:52:00 Test Item Value Reference Range Interpretation Comments Glucose Lvl (test code = Glucose Lvl) 291 70-99 [employer] [id number] 07:52:00 Test Item Value Reference Range Interpretation Comments BUN (test code = BUN) 16 02-02 [employer] [id number] 07:52:00 Test Item Value Reference Range Interpretation Comments Creatinine Lvl (test code = Creatinine 0.83 0.50-1.40 Lvl) [facility] [employer] [id number] 07:52:00 Test Item Value Reference Range Interpretation Comments ABO/Rh (test code = ABO/Rh) AB POS [facility] [employer] [id number] 07:52:00 Test Item Value Reference Range Interpretation Comments Antibody Scrn (test Negative (10/09/21 2:52 code = Antibody Scrn) AM) [facility] [employer] [id number] 07:52:00 Test Item Value Reference Range Interpretation Comments Glucose Lvl (test code = Glucose Lvl) 291 70-99 [facility] [employer] [id number] 07:52:00 Test Item Value Reference Range Interpretation Comments BUN (test code = BUN) 16 02-02 [employer] [id number] 07:52:00 Test Item Value Reference Range Interpretation Comments Creatinine Lvl (test code = Creatinine 0.83 0.50-1.40 Lvl) [employer] [id number] 07:52:00 Test Item Value Reference Range Interpretation Comments Sodium Lvl (test code = Sodium Lvl) 138 135-145 [employer] [id number] 07:52:00 Test Item Value Reference Range Interpretation Comments Potassium Lvl (test code = Potassium 4.7 3.5-5.1 Lvl) [employer] [id number] 07:52:00 Test Item Value Reference Range Interpretation Comments Sodium Lvl (test code = Sodium Lvl) 138 135-145 [employer] [id number] 07:52:00 Test Item Value Reference Range Interpretation Comments Chloride Lvl (test code = Chloride Lvl) 113 95-109 [employer] [id number] 07:52:00 Test Item Value Reference Range Interpretation Comments CO2 (test code = CO2) [place] 538552-03-28 07:52:00 Test Item Value Reference Range Interpretation Comments AGAP (test code = AGAP) 11.7 10.0-20.0 [place] 538552-03-28 07:52:00 Test Item Value Reference Range Interpretation Comments Calcium Lvl (test code = Calcium Lvl) 9.4 8.5-10.5 [place] 538552-03-28 07:52:00 Test Item Value Reference Range Interpretation Comments eGFR (test code = eGFR) 113 [place] 211002-03-28 07:52:00 Test Item Value Reference Range Interpretation Comments WBC (test code = WBC) 5.5 3.7-10.4 [place] 211002-03-28 07:52:00 Test Item Value Reference Range Interpretation Comments RBC (test code = RBC) 5.53 4.70-6.10 [place] 211002-03-28 07:52:00 Test Item Value Reference Range Interpretation Comments Hgb (test code = Hgb) 16.3 14.0-18.0 [place] 211002-03-28 07:52:00 Test Item Value Reference Range Interpretation Comments Hct (test code = Hct) 50.5 42.0-54.0 [place] [address]-03-28 07:52:00 Test Item Value Reference Range Interpretation Comments MCV (test code = MCV) 91.3 80.0-94.0 [facility]2022-03-28 07:52:00 Test Item Value Reference Range Interpretation Comments Potassium Lvl (test code = Potassium 4.7 3.5-5.1 Lvl) [place] 211002-03-28 07:52:00 Test Item Value Reference Range Interpretation Comments MCH (test code = MCH) 29.5 pg 27.0-31.0 [place] 211002-03-28 07:52:00 Test Item Value Reference Range Interpretation Comments MCHC (test code = MCHC) 32.3 32.0-36.0 [place] 211002-03-28 07:52:00 Test Item Value Reference Range Interpretation Comments RDW (test code = RDW) 15.4 11.5-14.5 [place] 211002-03-28 07:52:00 Test Item Value Reference Range Interpretation Comments Platelet (test code = Platelet) 210 133-450 [place] 211002-03-28 07:52:00 Test Item Value Reference Range Interpretation Comments MPV (test code = MPV) 9.3 7.4-10.4 [place] 538552-03-28 07:52:00 Test Item Value Reference Range Interpretation Comments Chloride Lvl (test code = Chloride Lvl) 113 95-109 [place] 538552-03-28 07:52:00 Test Item Value Reference Range Interpretation Comments CO2 (test code = CO2) 18 24-32 [place] 538552-03-28 07:52:00 Test Item Value Reference Range Interpretation Comments AGAP (test code = AGAP) 11.7 10.0-20.0 [facility]2022-03-28 07:52:00 Test Item Value Reference Range Interpretation Comments Calcium Lvl (test code = Calcium Lvl) 9.4 8.5-10.5 [facility]2022-03-28 07:52:00 Test Item Value Reference Range Interpretation Comments eGFR (test code = eGFR) 113 [facility]696[facility] 07:52:00 Test Item Value Reference Range Interpretation Comments WBC (test code = WBC) 5.5 3.7-10.4 [facility] CenterFrztkyeRUDZLTJNDZ7615-63-22 07:52:00 Test Item Value Reference Range Interpretation Comments RBC (test code = RBC) 5.53 4.70-6.10 [place] 211002-03-28 07:52:00 Test Item Value Reference Range Interpretation Comments Hgb (test code = Hgb) 16.3 14.0-18.0 [place] 211002-03-28 07:52:00 Test Item Value Reference Range Interpretation Comments Hct (test code = Hct) 50.5 42.0-54.0 [place] 211002-03-28 07:52:00 Test Item Value Reference Range Interpretation Comments MCV (test code = MCV) 91.3 80.0-94.0 [place] 211002-03-28 07:52:00 Test Item Value Reference Range Interpretation Comments MCH (test code = MCH) 29.5 pg 27.0-31.0 [address]03-28 07:52:00 Test Item Value Reference Range Interpretation Comments MCHC (test code = MCHC) 32.3 32.0-36.0 [facility] LhedscpFJMANFOJMF6705-03-23 07:52:00 Test Item Value Reference Range Interpretation Comments RDW (test code = RDW) 15.4 11.5-14.5 [facility]80[facility] 07:52:00 Test Item Value Reference Range Interpretation Comments Platelet (test code = Platelet) 210 133-450 [facility] HospitalFzuykrjXUJPAMUIYT8647-31-51 07:52:00 Test Item Value Reference Range Interpretation Comments MPV (test code = MPV) 9.3 7.4-10.4 [facility] [employer] [id number] 07:52:00 Test Item Value Reference Range Interpretation Comments ABO/Rh (test code = ABO/Rh) AB POS [facility] [employer] [id number] 07:52:00 Test Item Value Reference Range Interpretation Comments Antibody Scrn (test Negative (10/09/21 2:52 code = Antibody Scrn) AM) [facility] [employer] [id number] 07:52:00 Test Item Value Reference Range Interpretation Comments Glucose Lvl (test code = Glucose Lvl) 291 70-99 [facility] [employer] [id number] 07:52:00 Test Item Value Reference Range Interpretation Comments BUN (test code = BUN) 16 7-22 [facility] [employer] [id number] 07:52:00 Test Item Value Reference Range Interpretation Comments Creatinine Lvl (test code = Creatinine 0.83 0.50-1.40 Lvl) [facility] [employer] [id number] 07:52:00 Test Item Value Reference Range Interpretation Comments Sodium Lvl (test code = Sodium Lvl) 138 135-145 [facility] [employer] [id number] 07:52:00 Test Item Value Reference Range Interpretation Comments Potassium Lvl (test code = Potassium 4.7 3.5-5.1 Lvl) [facility] [employer] [id number] 07:52:00 Test Item Value Reference Range Interpretation Comments Chloride Lvl (test code = Chloride Lvl) 113 95-109 [facility] [employer] [id number] 07:52:00 Test Item Value Reference Range Interpretation Comments CO2 (test code = CO2) 18 24-32 [facility]2022-03-28 07:52:00 Test Item Value Reference Range Interpretation Comments AGAP (test code = AGAP) 11.7 10.0-20.0 [facility]2022-03-28 07:52:00 Test Item Value Reference Range Interpretation Comments Calcium Lvl (test code = Calcium Lvl) 9.4 8.5-10.5 [facility]2022-03-28 07:52:00 Test Item Value Reference Range Interpretation Comments eGFR (test code = eGFR) 113 [facility] CenterZzldmacWTXFFRSNHE9861-04-59 07:52:00 Test Item Value Reference Range Interpretation Comments WBC (test code = WBC) 5.5 3.7-10.4 [place] 211002-03-28 07:52:00 Test Item Value Reference Range Interpretation Comments RBC (test code = RBC) 5.53 4.70-6.10 [place] 211002-03-28 07:52:00 Test Item Value Reference Range Interpretation Comments Hgb (test code = Hgb) 16.3 14.0-18.0 [facility] CenterUxmgtraTJSOQOIKXB4736-78-58 07:52:00 Test Item Value Reference Range Interpretation Comments Hct (test code = Hct) 50.5 42.0-54.0 [facility] CenterJbreezzTEBVPWAQEM0706-46-99 07:52:00 Test Item Value Reference Range Interpretation Comments MCV (test code = MCV) 91.3 80.0-94.0 [place] 211002-03-28 07:52:00 Test Item Value Reference Range Interpretation Comments MCH (test code = MCH) 29.5 pg 27.0-31.0 [place] 211002-03-28 07:52:00 Test Item Value Reference Range Interpretation Comments MCHC (test code = MCHC) 32.3 32.0-36.0 [place] 211002-03-28 07:52:00 Test Item Value Reference Range Interpretation Comments RDW (test code = RDW) 15.4 11.5-14.5 [facility] CenterSucsffeZZRZKDRTUF9027-49-39 07:52:00 Test Item Value Reference Range Interpretation Comments Platelet (test code = Platelet) 210 133-450 [place] 211002-03-28 07:52:00 Test Item Value Reference Range Interpretation Comments MPV (test code = MPV) 9.3 7.4-10.4 [facility]2022-03-27 10:12:00 Test Item Value Reference Range Interpretation Comments Glucose Lvl (test code = Glucose Lvl) 115 70-99 [place] 538552-03-27 10:12:00 Test Item Value Reference Range Interpretation Comments BUN (test code = BUN) 18 7-22 [place] 538552-03-27 10:12:00 Test Item Value Reference Range Interpretation Comments Creatinine Lvl (test code = Creatinine 0.78 0.50-1.40 Lvl) [place] 538552-03-27 10:12:00 Test Item Value Reference Range Interpretation Comments Sodium Lvl (test code = Sodium Lvl) 138 135-145 [place] 538552-03-27 10:12:00 Test Item Value Reference Range Interpretation Comments Potassium Lvl (test code = Potassium 4.6 3.5-5.1 Lvl) [place] 538552-03-27 10:12:00 Test Item Value Reference Range Interpretation Comments Chloride Lvl (test code = Chloride Lvl) 111 95-109 [place] 538552-03-27 10:12:00 Test Item Value Reference Range Interpretation Comments CO2 (test code = CO2) 21 24-32 [place] 538552-03-27 10:12:00 Test Item Value Reference Range Interpretation Comments AGAP (test code = AGAP) 10.6 10.0-20.0 [place] 538552-03-27 10:12:00 Test Item Value Reference Range Interpretation Comments Calcium Lvl (test code = Calcium Lvl) 8.6 8.5-10.5 [facility]2022-03-27 10:12:00 Test Item Value Reference Range Interpretation Comments eGFR (test code = eGFR) 116 [place] 211002-03-27 10:12:00 Test Item Value Reference Range Interpretation Comments WBC (test code = WBC) 8.2 3.7-10.4 [place] 211002-03-27 10:12:00 Test Item Value Reference Range Interpretation Comments RBC (test code = RBC) 5.14 4.70-6.10 [place] 211002-03-27 10:12:00 Test Item Value Reference Range Interpretation Comments Hgb (test code = Hgb) 15.5 14.0-18.0 [place] [address]-03-27 10:12:00 Test Item Value Reference Range Interpretation Comments Hct (test code = Hct) 46.0 42.0-54.0 [place] [address]-03-27 10:12:00 Test Item Value Reference Range Interpretation Comments MCV (test code = MCV) 89.5 80.0-94.0 [place] [address]-03-27 10:12:00 Test Item Value Reference Range Interpretation Comments MCH (test code = MCH) 30.2 pg 27.0-31.0 [place] 211002-03-27 10:12:00 Test Item Value Reference Range Interpretation Comments MCHC (test code = MCHC) 33.8 32.0-36.0 [place] [address]-03-27 10:12:00 Test Item Value Reference Range Interpretation Comments RDW (test code = RDW) 15.3 11.5-14.5 [place] [address]-03-27 10:12:00 Test Item Value Reference Range Interpretation Comments Platelet (test code = Platelet) 358 133-450 [place] [address]-03-27 10:12:00 Test Item Value Reference Range Interpretation Comments MPV (test code = MPV) 8.3 7.4-10.4 [facility]2022-03-27 10:12:00 Test Item Value Reference Range Interpretation Comments Glucose Lvl (test code = Glucose Lvl) 115 70-99 [facility]2022-03-27 10:12:00 Test Item Value Reference Range Interpretation Comments BUN (test code = BUN) 18 7-22 [place] 538552-03-27 10:12:00 Test Item Value Reference Range Interpretation Comments Creatinine Lvl (test code = Creatinine 0.78 0.50-1.40 Lvl) [place] 538552-03-27 10:12:00 Test Item Value Reference Range Interpretation Comments Sodium Lvl (test code = Sodium Lvl) 138 135-145 [place] 538552-03-27 10:12:00 Test Item Value Reference Range Interpretation Comments Potassium Lvl (test code = Potassium 4.6 3.5-5.1 Lvl) [place] 538552-03-27 10:12:00 Test Item Value Reference Range Interpretation Comments Chloride Lvl (test code = Chloride Lvl) 111 95-109 [place] 538552-03-27 10:12:00 Test Item Value Reference Range Interpretation Comments CO2 (test code = CO2) 21 24-32 [place] 538552-03-27 10:12:00 Test Item Value Reference Range Interpretation Comments AGAP (test code = AGAP) 10.6 10.0-20.0 [place] 538552-03-27 10:12:00 Test Item Value Reference Range Interpretation Comments Calcium Lvl (test code = Calcium Lvl) 8.6 8.5-10.5 [place] 538552-03-27 10:12:00 Test Item Value Reference Range Interpretation Comments eGFR (test code = eGFR) 116 [place] 211002-03-27 10:12:00 Test Item Value Reference Range Interpretation Comments WBC (test code = WBC) 8.2 3.7-10.4 [place] 211002-03-27 10:12:00 Test Item Value Reference Range Interpretation Comments RBC (test code = RBC) 5.14 4.70-6.10 [place] 211002-03-27 10:12:00 Test Item Value Reference Range Interpretation Comments Hgb (test code = Hgb) 15.5 14.0-18.0 [place] 211002-03-27 10:12:00 Test Item Value Reference Range Interpretation Comments Hct (test code = Hct) 46.0 42.0-54.0 [place] [address]-03-27 10:12:00 Test Item Value Reference Range Interpretation Comments MCV (test code = MCV) 89.5 80.0-94.0 [place] [address]-03-27 10:12:00 Test Item Value Reference Range Interpretation Comments MCH (test code = MCH) 30.2 pg 27.0-31.0 [place] 211002-03-27 10:12:00 Test Item Value Reference Range Interpretation Comments MCHC (test code = MCHC) 33.8 32.0-36.0 [address]03-27 10:12:00 Test Item Value Reference Range Interpretation Comments RDW (test code = RDW) 15.3 11.5-14.5 [place] 211002-03-27 10:12:00 Test Item Value Reference Range Interpretation Comments Platelet (test code = Platelet) 358 133-450 [place] 211002-03-27 10:12:00 Test Item Value Reference Range Interpretation Comments MPV (test code = MPV) 8.3 7.4-10.4 [facility]2022-03-27 10:12:00 Test Item Value Reference Range Interpretation Comments Glucose Lvl (test code = Glucose Lvl) 115 70-99 [place] 538552-03-27 10:12:00 Test Item Value Reference Range Interpretation Comments BUN (test code = BUN) 18 7-22 [place] 538552-03-27 10:12:00 Test Item Value Reference Range Interpretation Comments Creatinine Lvl (test code = Creatinine 0.78 0.50-1.40 Lvl) [place] 538552-03-27 10:12:00 Test Item Value Reference Range Interpretation Comments Sodium Lvl (test code = Sodium Lvl) 138 135-145 [place] 538552-03-27 10:12:00 Test Item Value Reference Range Interpretation Comments Potassium Lvl (test code = Potassium 4.6 3.5-5.1 Lvl) [place] 538552-03-27 10:12:00 Test Item Value Reference Range Interpretation Comments Chloride Lvl (test code = Chloride Lvl) 111 95-109 [place] 538552-03-27 10:12:00 Test Item Value Reference Range Interpretation Comments CO2 (test code = CO2) 21 24-32 [place] 538552-03-27 10:12:00 Test Item Value Reference Range Interpretation Comments AGAP (test code = AGAP) 10.6 10.0-20.0 [place] 538552-03-27 10:12:00 Test Item Value Reference Range Interpretation Comments Calcium Lvl (test code = Calcium Lvl) 8.6 8.5-10.5 [place] 538552-03-27 10:12:00 Test Item Value Reference Range Interpretation Comments eGFR (test code = eGFR) 116 [place] 211002-03-27 10:12:00 Test Item Value Reference Range Interpretation Comments WBC (test code = WBC) 8.2 3.7-10.4 [place] 211002-03-27 10:12:00 Test Item Value Reference Range Interpretation Comments RBC (test code = RBC) 5.14 4.70-6.10 [place] [address]-03-27 10:12:00 Test Item Value Reference Range Interpretation Comments Hgb (test code = Hgb) 15.5 14.0-18.0 [place] [address]-03-27 10:12:00 Test Item Value Reference Range Interpretation Comments Hct (test code = Hct) 46.0 42.0-54.0 [place] [address]-03-27 10:12:00 Test Item Value Reference Range Interpretation Comments MCV (test code = MCV) 89.5 80.0-94.0 [place] [address]-03-27 10:12:00 Test Item Value Reference Range Interpretation Comments MCH (test code = MCH) 30.2 pg 27.0-31.0 [place] [address]-03-27 10:12:00 Test Item Value Reference Range Interpretation Comments MCHC (test code = MCHC) 33.8 32.0-36.0 [place] [address]-03-27 10:12:00 Test Item Value Reference Range Interpretation Comments RDW (test code = RDW) 15.3 11.5-14.5 [place] 211002-03-27 10:12:00 Test Item Value Reference Range Interpretation Comments Platelet (test code = Platelet) 358 133-450 [place] 211002-03-27 10:12:00 Test Item Value Reference Range Interpretation Comments MPV (test code = MPV) 8.3 7.4-10.4 [place] 538552-03-27 06:53:00 Test Item Value Reference Range Interpretation Comments Glucose Lvl (test code = Glucose Lvl) 167 70-99 [place] 538552-03-27 06:53:00 Test Item Value Reference Range Interpretation Comments BUN (test code = BUN) 16 7-22 [place] 538552-03-27 06:53:00 Test Item Value Reference Range Interpretation Comments Creatinine Lvl (test code = Creatinine 0.99 0.50-1.40 Lvl) [place] 538552-03-27 06:53:00 Test Item Value Reference Range Interpretation Comments Sodium Lvl (test code = Sodium Lvl) 141 135-145 [place] 538552-03-27 06:53:00 Test Item Value Reference Range Interpretation Comments Potassium Lvl (test code = Potassium 4.5 3.5-5.1 Lvl) [place] 538552-03-27 06:53:00 Test Item Value Reference Range Interpretation Comments Chloride Lvl (test code = Chloride Lvl) 111 95-109 [place] 538552-03-27 06:53:00 Test Item Value Reference Range Interpretation Comments CO2 (test code = CO2) 22 24-32 [place] 538552-03-27 06:53:00 Test Item Value Reference Range Interpretation Comments AGAP (test code = AGAP) 12.5 10.0-20.0 [place] 538552-03-27 06:53:00 Test Item Value Reference Range Interpretation Comments Calcium Lvl (test code = Calcium Lvl) 8.6 8.5-10.5 [place] 538552-03-27 06:53:00 Test Item Value Reference Range Interpretation Comments eGFR (test code = eGFR) 98 [place] 538552-03-27 06:53:00 Test Item Value Reference Range Interpretation Comments Glucose Lvl (test code = Glucose Lvl) 167 70-99 [place] 538552-03-27 06:53:00 Test Item Value Reference Range Interpretation Comments BUN (test code = BUN) 16 7-22 [place] 538552-03-27 06:53:00 Test Item Value Reference Range Interpretation Comments Creatinine Lvl (test code = Creatinine 0.99 0.50-1.40 Lvl) [place] 538552-03-27 06:53:00 Test Item Value Reference Range Interpretation Comments Sodium Lvl (test code = Sodium Lvl) 141 135-145 [place] 538552-03-27 06:53:00 Test Item Value Reference Range Interpretation Comments Potassium Lvl (test code = Potassium 4.5 3.5-5.1 Lvl) [place] 538552-03-27 06:53:00 Test Item Value Reference Range Interpretation Comments Chloride Lvl (test code = Chloride Lvl) 111 95-109 [place] 538552-03-27 06:53:00 Test Item Value Reference Range Interpretation Comments CO2 (test code = CO2) [place] 538552-03-27 06:53:00 Test Item Value Reference Range Interpretation Comments AGAP (test code = AGAP) 12.5 10.0-20.0 [place] 538552-03-27 06:53:00 Test Item Value Reference Range Interpretation Comments Calcium Lvl (test code = Calcium Lvl) 8.6 8.5-10.5 [place] 538552-03-27 06:53:00 Test Item Value Reference Range Interpretation Comments eGFR (test code = eGFR) 98 [place] 538552-03-27 06:53:00 Test Item Value Reference Range Interpretation Comments Glucose Lvl (test code = Glucose Lvl) 167 70-99 [place] 538552-03-27 06:53:00 Test Item Value Reference Range Interpretation Comments BUN (test code = BUN) 16 02-02 [place] 538552-03-27 06:53:00 Test Item Value Reference Range Interpretation Comments Creatinine Lvl (test code = Creatinine 0.99 0.50-1.40 Lvl) [facility]2022-03-27 06:53:00 Test Item Value Reference Range Interpretation Comments Sodium Lvl (test code = Sodium Lvl) 141 135-145 [place] 538552-03-27 06:53:00 Test Item Value Reference Range Interpretation Comments Potassium Lvl (test code = Potassium 4.5 3.5-5.1 Lvl) [place] 538552-03-27 06:53:00 Test Item Value Reference Range Interpretation Comments Chloride Lvl (test code = Chloride Lvl) 111 95-109 [place] 538552-03-27 06:53:00 Test Item Value Reference Range Interpretation Comments CO2 (test code = CO2) [place] 538552-03-27 06:53:00 Test Item Value Reference Range Interpretation Comments AGAP (test code = AGAP) 12.5 10.0-20.0 [place] 538552-03-27 06:53:00 Test Item Value Reference Range Interpretation Comments Calcium Lvl (test code = Calcium Lvl) 8.6 8.5-10.5 [id number] 06:53:00 Test Item Value Reference Range Interpretation Comments eGFR (test code = eGFR) 98 [facility]IT[facility]IN:SUSC:PT:ISOLATE:ORDQN:[id number] 22:59:00 Test Item Value Reference Range Interpretation Comments Culture: Urine (test >100,000 CFU/mL Proteus code = Culture: mirabilis >100,000 CFU/mL Urine) Providencia stuartii [facility]SUSC:PT:ISOLATE:ORDQN:[id number] 22:59:00 Test Item Value Reference Range Interpretation Comments Providencia stuartii Providencia stuartii (test code = Providencia stuartii) [facility]IT[facility]IN:SUSC:PT:ISOLATE:ORDQN:[id number] 22:59:00 Test Item Value Reference Range Interpretation Comments Proteus mirabilis (test Proteus mirabilis code = Proteus mirabilis) [facility]: [id number] 22:59:00 Test Item Value Reference Range Interpretation Comments Culture: Urine (test Holding For Better code = Culture: Urine) Growth [facility]IT[facility]IN:SUSC:PT:ISOLATE:ORDQN:[id number] 22:59:00 Test Item Value Reference Range Interpretation Comments Culture: Urine (test >100,000 CFU/mL Proteus code = Culture: mirabilis >100,000 CFU/mL Urine) Providencia stuartii [facility]NIT[facility]ANTOIN:SUSC:PT:ISOLATE:ORDQN:[id number] 22:59:00 Test Item Value Reference Range Interpretation Comments Providencia stuartii Providencia stuartii (test code = Providencia stuartii) [facility] HermannNITROFURANTOIN:SUSC:PT:ISOLATE:ORDQN:[id number] 22:59:00 Test Item Value Reference Range Interpretation Comments Proteus mirabilis (test Proteus mirabilis code = Proteus mirabilis) [facility] [id number] 22:59:00 Test Item Value Reference Range Interpretation Comments Culture: Urine (test Holding For Better code = Culture: Urine) [facility]annNITROFURANTOIN:SUSC:PT:ISOLATE:ORDQN:[id number] 22:59:00 Test Item Value Reference Range Interpretation Comments Culture: Urine (test >100,000 CFU/mL Proteus code = Culture: mirabilis >100,000 CFU/mL Urine) Providencia stuartii [facility]annNITROFURANTOIN:SUSC:PT:ISOLATE:ORDQN:[id number] 22:59:00 Test Item Value Reference Range Interpretation Comments Providencia stuartii Providencia stuartii (test code = Providencia stuartii) [facility]annNITROFURANTOIN:SUSC:PT:ISOLATE:ORDQN:[id number] 22:59:00 Test Item Value Reference Range Interpretation Comments Proteus mirabilis (test Proteus mirabilis code = Proteus mirabilis) [facility]annCulture: [id number] 22:59:00 Test Item Value Reference Range Interpretation Comments Culture: Urine (test Holding For Better code = Culture: Urine) [facility]Med[facility] [id number] 21:03:00 Test Item Value Reference Range Interpretation Comments Glucose Lvl (test code = Glucose Lvl) 126 70-99 [facility] [id number] 21:03:00 Test Item Value Reference Range Interpretation Comments BUN (test code = BUN) 16 7-22 [facility] [id number] 21:03:00 Test Item Value Reference Range Interpretation Comments Creatinine Lvl (test code = Creatinine 0.76 0.50-1.40 Lvl) [facility] [id number] 21:03:00 Test Item Value Reference Range Interpretation Comments Sodium Lvl (test code = Sodium Lvl) 140 135-145 [facility] [id number] 21:03:00 Test Item Value Reference Range Interpretation Comments Potassium Lvl (test code = Potassium 3.3 3.5-5.1 Lvl) [facility] [place] 469782-03-26 21:03:00 Test Item Value Reference Range Interpretation Comments Chloride Lvl (test code = Chloride Lvl) 111 95-109 [place] 538552-03-26 21:03:00 Test Item Value Reference Range Interpretation Comments CO2 (test code = CO2) 22 24-32 [place] [address]-03-26 21:03:00 Test Item Value Reference Range Interpretation Comments Calcium Lvl (test code = Calcium Lvl) 8.5 8.5-10.5 [place] 538552-03-26 21:03:00 Test Item Value Reference Range Interpretation Comments AGAP (test code = AGAP) 10.3 10.0-20.0 [place] [address]-03-26 21:03:00 Test Item Value Reference Range Interpretation Comments eGFR (test code = eGFR) 117 [place] 538552-03-26 21:03:00 Test Item Value Reference Range Interpretation Comments Lactic Acid Lvl (test code = Lactic 1.1 0.5-2.2 Acid Lvl) [place] [address]-03-26 21:03:00 Test Item Value Reference Range Interpretation Comments Segs (test code = Segs) 68.9 45.0-75.0 [place] [address]-03-26 21:03:00 Test Item Value Reference Range Interpretation Comments Lymphocytes (test code = Lymphocytes) 20.4 20.0-40.0 [place] [address]-03-26 21:03:00 Test Item Value Reference Range Interpretation Comments Monocytes (test code = Monocytes) 8.2 2.0-12.0 [place] [address]-03-26 21:03:00 Test Item Value Reference Range Interpretation Comments Eosinophils (test code = 2.2 See_Comment [A utomated message] The Eosinophils) system which ge nerated this result tra nsmitted reference range : <=4.0. The reference r boubacar was not used to int erpret this result as normal/abnormal . [place] [address]-03-26 21:03:00 Test Item Value Reference Range Interpretation Comments Basophils (test code = 0.3 See_Comment [Aut omated message] The Basophils) system which ge nerated this result tra nsmitted reference range : <=1.0. The reference r boubacar was not used to int erpret this result as normal/abnormal . [place] 211002-03-26 21:03:00 Test Item Value Reference Range Interpretation Comments Neutrophils # (test code = Neutrophils 5.5 1.5-8.1 #) [place] 211002-03-26 21:03:00 Test Item Value Reference Range Interpretation Comments Lymphocytes # (test code = Lymphocytes 1.6 1.0-5.5 #) [place] 211002-03-26 21:03:00 Test Item Value Reference Range Interpretation Comments Monocytes # (test code 0.7 See_Comment [Aut omated message] The = Monocytes #) system which generated this result tra nsmitted reference range : <=0.8. The reference r boubacar was not used to int erpret this result as normal/abnormal . [place] 211002-03-26 21:03:00 Test Item Value Reference Range Interpretation Comments Eosinophils # (test code 0.2 See_Comment [A utomated message] The = Eosinophils #) system whic h generated this result tra nsmitted reference range : <=0.5. The reference r boubacar was not used to int erpret this result as normal/abnormal . [place] 211002-03-26 21:03:00 Test Item Value Reference Range Interpretation Comments WBC (test code = WBC) 8.0 3.7-10.4 [place] [address]-03-26 21:03:00 Test Item Value Reference Range Interpretation Comments RBC (test code = RBC) 5.37 4.70-6.10 [place] [address]-03-26 21:03:00 Test Item Value Reference Range Interpretation Comments Hgb (test code = Hgb) 15.9 14.0-18.0 [place] [address]-03-26 21:03:00 Test Item Value Reference Range Interpretation Comments Hct (test code = Hct) 47.3 42.0-54.0 [place] [address]-03-26 21:03:00 Test Item Value Reference Range Interpretation Comments MCV (test code = MCV) 88.1 80.0-94.0 [place] [address]-03-26 21:03:00 Test Item Value Reference Range Interpretation Comments MCH (test code = MCH) 29.6 pg 27.0-31.0 [id number] 21:03:00 Test Item Value Reference Range Interpretation Comments MCHC (test code = MCHC) 33.6 32.0-36.0 [facility] CenterNdgusyaPHNEWZQJYP0311-10-07 21:03:00 Test Item Value Reference Range Interpretation Comments RDW (test code = RDW) 15.3 11.5-14.5 [facility] CenterAqkcgxcZSYBLYQAAD1040-74-55 21:03:00 Test Item Value Reference Range Interpretation Comments Platelet (test code = Platelet) 370 133-450 [facility] CenterXabombjVORZVVHRGU9459-92-34 21:03:00 Test Item Value Reference Range Interpretation Comments MPV (test code = MPV) 8.1 7.4-10.4 [facility] AND [id number] 21:03:00 Test Item Value Reference Range Interpretation Comments UA Comment 1 (test Suboptimal specimen code = UA Comment 1) received. Results may be inaccurate due to the age of the specimen. Interpret results with caution. [facility] AND [id number] 21:03:00 Test Item Value Reference Range Interpretation Comments UA Color (test code = Yellow *NA*(10/07/21 UA Color) 4:03 PM) [facility] AND [id number] 21:03:00 Test Item Value Reference Range Interpretation Comments UA Turbidity (test code Slight *ABN*(10/07/21 = UA Turbidity) 4:03 PM) [facility] AND [id number] 21:03:00 Test Item Value Reference Range Interpretation Comments UA Spec Grav (test code = UA Spec 1.015 1 Grav) [facility] AND [id number] 21:03:00 Test Item Value Reference Range Interpretation Comments UA pH (test code = UA pH) 5.0 1 5.0-8.0 [facility] AND [id number] 21:03:00 Test Item Value Reference Range Interpretation Comments UA Protein (test code = UA Negative mg/dL Protein) [facility] AND [id number] 21:03:00 Test Item Value Reference Range Interpretation Comments UA Glucose (test code = UA Negative mg/dL Glucose) [facility] AND [id number] 21:03:00 Test Item Value Reference Range Interpretation Comments UA Ketones (test code = UA Negative mg/dL Ketones) [facility] [id number] 21:03:00 Test Item Value Reference Range Interpretation Comments UA Bili (test code = Negative *NA*(10/07/21 UA Bili) 4:03 PM) [facility] [id number] 21:03:00 Test Item Value Reference Range Interpretation Comments UA Blood (test code = Negative (10/07/21 4:03 [facility]A Blood) PM) [facility] [id number] 21:03:00 Test Item Value Reference Range Interpretation Comments UA Urobilinogen (test code = UA no gt 0.1-1.0 Urobilinogen) [facility] [id number] 21:03:00 Test Item Value Reference Range Interpretation Comments UA Nitrite (test code Negative (10/07/21 4:03 = UA Nitrite) PM) [facility] [id number] 21:03:00 Test Item Value Reference Range Interpretation Comments UA Leuk Est (test code Large *ABN*(10/07/21 = UA Leuk Est) 4:03 PM) [facility] [id number] 21:03:00 Test Item Value Reference Range Interpretation Comments UA WBC (test code = 64 See_Comment [Automa lester message] The UA WBC) system which ge nerated this result transmit lester reference range : <=5. The reference range was not used to interpr et this result as dany l/abnormal. [facility] [id number] 21:03:00 Test Item Value Reference Range Interpretation Comments UA RBC (test code = 2 See_Comment [Automa lester message] The UA RBC) system which ge nerated this result transmit lester reference range : <=2. The reference range was not used to interpr et this result as dany l/abnormal. [facility] [id number] 21:03:00 Test Item Value Reference Range Interpretation Comments UA Mucus (test code = UA Mucus) Few /LPF [facility] [id number] 21:03:00 Test Item Value Reference Range Interpretation Comments UA Sq Epi (test code = UA Sq Epi) None [facility] [id number] 21:03:00 Test Item Value Reference Range Interpretation Comments Glucose Lvl (test code = Glucose Lvl) 126 70-99 [place] 538552-03-26 21:03:00 Test Item Value Reference Range Interpretation Comments BUN (test code = BUN) 16 7-22 [place] 538552-03-26 21:03:00 Test Item Value Reference Range Interpretation Comments Creatinine Lvl (test code = Creatinine 0.76 0.50-1.40 Lvl) [facility]2022-03-26 21:03:00 Test Item Value Reference Range Interpretation Comments Sodium Lvl (test code = Sodium Lvl) 140 135-145 [place] 538552-03-26 21:03:00 Test Item Value Reference Range Interpretation Comments Potassium Lvl (test code = Potassium 3.3 3.5-5.1 Lvl) [facility]2022-03-26 21:03:00 Test Item Value Reference Range Interpretation Comments Chloride Lvl (test code = Chloride Lvl) 111 95-109 [facility]2022-03-26 21:03:00 Test Item Value Reference Range Interpretation Comments CO2 (test code = CO2) 22 24-32 [place] 538552-03-26 21:03:00 Test Item Value Reference Range Interpretation Comments Calcium Lvl (test code = Calcium Lvl) 8.5 8.5-10.5 [facility]2022-03-26 21:03:00 Test Item Value Reference Range Interpretation Comments AGAP (test code = AGAP) 10.3 10.0-20.0 [facility]2022-03-26 21:03:00 Test Item Value Reference Range Interpretation Comments eGFR (test code = eGFR) 117 [facility]2022-03-26 21:03:00 Test Item Value Reference Range Interpretation Comments Lactic Acid Lvl (test code = Lactic 1.1 0.5-2.2 Acid Lvl) [facility] CenterKpbkmqmQEOSHESWUM7018-20-13 21:03:00 Test Item Value Reference Range Interpretation Comments Segs (test code = Segs) 68.9 45.0-75.0 [facility] CenterZisxebbMVLOYRPNIU9511-14-15 21:03:00 Test Item Value Reference Range Interpretation Comments Lymphocytes (test code = Lymphocytes) 20.4 20.0-40.0 [place] 211002-03-26 21:03:00 Test Item Value Reference Range Interpretation Comments Monocytes (test code = Monocytes) 8.2 2.0-12.0 [place] 211002-03-26 21:03:00 Test Item Value Reference Range Interpretation Comments Eosinophils (test code = 2.2 See_Comment [A utomated message] The Eosinophils) system which ge nerated this result tra nsmitted reference range : <=4.0. The reference r boubacar was not used to int erpret this result as normal/abnormal . [place] 211002-03-26 21:03:00 Test Item Value Reference Range Interpretation Comments Basophils (test code = 0.3 See_Comment [Aut omated message] The Basophils) system which ge nerated this result tra nsmitted reference range : <=1.0. The reference r boubacar was not used to int erpret this result as normal/abnormal . [place] 211002-03-26 21:03:00 Test Item Value Reference Range Interpretation Comments Neutrophils # (test code = Neutrophils 5.5 1.5-8.1 #) [place] 211002-03-26 21:03:00 Test Item Value Reference Range Interpretation Comments Lymphocytes # (test code = Lymphocytes 1.6 1.0-5.5 #) [place] 211002-03-26 21:03:00 Test Item Value Reference Range Interpretation Comments Monocytes # (test code 0.7 See_Comment [Aut omated message] The = Monocytes #) system which generated this result tra nsmitted reference range : <=0.8. The reference r boubacar was not used to int erpret this result as normal/abnormal . [place] 211002-03-26 21:03:00 Test Item Value Reference Range Interpretation Comments Eosinophils # (test code 0.2 See_Comment [A utomated message] The = Eosinophils #) system whic h generated this result tra nsmitted reference range : <=0.5. The reference r boubacar was not used to int erpret this result as normal/abnormal . [place] 211002-03-26 21:03:00 Test Item Value Reference Range Interpretation Comments WBC (test code = WBC) 8.0 3.7-10.4 [place] 211002-03-26 21:03:00 Test Item Value Reference Range Interpretation Comments RBC (test code = RBC) 5.37 4.70-6.10 [facility] CenterPuhywunYVSOXZYICD8639-62-65 21:03:00 Test Item Value Reference Range Interpretation Comments Hgb (test code = Hgb) 15.9 14.0-18.0 [facility] CenterCzxpujgUVCTXTWSWN9690-63-30 21:03:00 Test Item Value Reference Range Interpretation Comments Hct (test code = Hct) 47.3 42.0-54.0 [facility] CenterXeipyxrSWUKAZUCQN7583-30-73 21:03:00 Test Item Value Reference Range Interpretation Comments MCV (test code = MCV) 88.1 80.0-94.0 [facility] CenterYtfgmyzSKMQVGWFFO2060-85-05 21:03:00 Test Item Value Reference Range Interpretation Comments MCH (test code = MCH) 29.6 pg 27.0-31.0 [facility] CenterYqdtpqvFCUBEZCWNJ8068-08-79 21:03:00 Test Item Value Reference Range Interpretation Comments MCHC (test code = MCHC) 33.6 32.0-36.0 [facility] CenterIxcdmjgDKYNGYKERU1886-72-82 21:03:00 Test Item Value Reference Range Interpretation Comments RDW (test code = RDW) 15.3 11.5-14.5 [facility] CenterLjlmbdxEDMNKBZUPA9895-80-73 21:03:00 Test Item Value Reference Range Interpretation Comments Platelet (test code = Platelet) 370 133-450 [facility] CenterRqyhkedSWNYBSSWBR4885-21-89 21:03:00 Test Item Value Reference Range Interpretation Comments MPV (test code = MPV) 8.1 7.4-10.4 [facility]2022-03-26 21:03:00 Test Item Value Reference Range Interpretation Comments UA Comment 1 (test Suboptimal specimen code = UA Comment 1) received. Results may be inaccurate due to the age of the specimen. Interpret results with caution. [facility]2022-03-26 21:03:00 Test Item Value Reference Range Interpretation Comments UA Color (test code = Yellow *NA*(10/07/21 UA Color) 4:03 PM) [facility]2022-03-26 21:03:00 Test Item Value Reference Range Interpretation Comments UA Turbidity (test code Slight *ABN*(10/07/21 = UA Turbidity) 4:03 PM) [facility] AND [id number] 21:03:00 Test Item Value Reference Range Interpretation Comments UA Spec Grav (test code = UA Spec 1.015 1 Grav) [facility] AND [id number] 21:03:00 Test Item Value Reference Range Interpretation Comments UA pH (test code = UA pH) 5.0 1 5.0-8.0 [facility] AND [id number] 21:03:00 Test Item Value Reference Range Interpretation Comments UA Protein (test code = UA Negative mg/dL Protein) [facility] AND [id number] 21:03:00 Test Item Value Reference Range Interpretation Comments UA Glucose (test code = UA Negative mg/dL Glucose) [facility] AND [id number] 21:03:00 Test Item Value Reference Range Interpretation Comments UA Ketones (test code = UA Negative mg/dL Ketones) [facility] AND [id number] 21:03:00 Test Item Value Reference Range Interpretation Comments UA Bili (test code = Negative *NA*(10/07/21 UA Bili) 4:03 PM) [facility] AND [id number] 21:03:00 Test Item Value Reference Range Interpretation Comments UA Blood (test code = Negative (10/07/21 4:03 UA Blood) PM) [facility] AND [id number] 21:03:00 Test Item Value Reference Range Interpretation Comments UA Urobilinogen (test code = UA no gt 0.1-1.0 Urobilinogen) [facility] AND [id number] 21:03:00 Test Item Value Reference Range Interpretation Comments UA Nitrite (test code Negative (10/07/21 4:03 = UA Nitrite) PM) [facility] AND [id number] 21:03:00 Test Item Value Reference Range Interpretation Comments UA Leuk Est (test code Large *ABN*(10/07/21 = UA Leuk Est) 4:03 PM) [facility] AND [id number] 21:03:00 Test Item Value Reference Range Interpretation Comments UA WBC (test code = 64 See_Comment [Automa lester message] The UA WBC) system which ge nerated this result transmit lester reference range : <=5. The reference range was not used to interpr et this result as dany l/abnormal. [facility] AND [id number] 21:03:00 Test Item Value Reference Range Interpretation Comments UA RBC (test code = 2 See_Comment [Automa lester message] The UA RBC) system which ge nerated this result transmit lester reference range : <=2. The reference range was not used to interpr et this result as dany l/abnormal. [facility] AND [id number] 21:03:00 Test Item Value Reference Range Interpretation Comments UA Mucus (test code = UA Mucus) Few /LPF [facility] AND [id number] 21:03:00 Test Item Value Reference Range Interpretation Comments UA Sq Epi (test code = UA Sq Epi) None Seen [facility]2022-03-26 21:03:00 Test Item Value Reference Range Interpretation Comments Glucose Lvl (test code = Glucose Lvl) 126 70-99 [place] 538552-03-26 21:03:00 Test Item Value Reference Range Interpretation Comments BUN (test code = BUN) 16 7-22 [place] 538552-03-26 21:03:00 Test Item Value Reference Range Interpretation Comments Creatinine Lvl (test code = Creatinine 0.76 0.50-1.40 Lvl) [place] 538552-03-26 21:03:00 Test Item Value Reference Range Interpretation Comments Sodium Lvl (test code = Sodium Lvl) 140 135-145 [place] 538552-03-26 21:03:00 Test Item Value Reference Range Interpretation Comments Potassium Lvl (test code = Potassium 3.3 3.5-5.1 Lvl) [place] 538552-03-26 21:03:00 Test Item Value Reference Range Interpretation Comments Chloride Lvl (test code = Chloride Lvl) 111 95-109 [place] 538552-03-26 21:03:00 Test Item Value Reference Range Interpretation Comments CO2 (test code = CO2) 22 24-32 [place] 538552-03-26 21:03:00 Test Item Value Reference Range Interpretation Comments Calcium Lvl (test code = Calcium Lvl) 8.5 8.5-10.5 [place] 538552-03-26 21:03:00 Test Item Value Reference Range Interpretation Comments AGAP (test code = AGAP) 10.3 10.0-20.0 [place] 538552-03-26 21:03:00 Test Item Value Reference Range Interpretation Comments eGFR (test code = eGFR) 117 [place] 538552-03-26 21:03:00 Test Item Value Reference Range Interpretation Comments Lactic Acid Lvl (test code = Lactic 1.1 0.5-2.2 Acid Lvl) [place] 211002-03-26 21:03:00 Test Item Value Reference Range Interpretation Comments Segs (test code = Segs) 68.9 45.0-75.0 [place] 211002-03-26 21:03:00 Test Item Value Reference Range Interpretation Comments Lymphocytes (test code = Lymphocytes) 20.4 20.0-40.0 [place] 211002-03-26 21:03:00 Test Item Value Reference Range Interpretation Comments Monocytes (test code = Monocytes) 8.2 2.0-12.0 [place] 211002-03-26 21:03:00 Test Item Value Reference Range Interpretation Comments Eosinophils (test code = 2.2 See_Comment [A utomated message] The Eosinophils) system which ge nerated this result tra nsmitted reference range : <=4.0. The reference r boubacar was not used to int erpret this result as normal/abnormal . [place] 211002-03-26 21:03:00 Test Item Value Reference Range Interpretation Comments Basophils (test code = 0.3 See_Comment [Aut omated message] The Basophils) system which ge nerated this result tra nsmitted reference range : <=1.0. The reference r boubacar was not used to int erpret this result as normal/abnormal . [place] 211002-03-26 21:03:00 Test Item Value Reference Range Interpretation Comments Neutrophils # (test code = Neutrophils 5.5 1.5-8.1 #) [place] 211002-03-26 21:03:00 Test Item Value Reference Range Interpretation Comments Lymphocytes # (test code = Lymphocytes 1.6 1.0-5.5 #) [place] 211002-03-26 21:03:00 Test Item Value Reference Range Interpretation Comments Monocytes # (test code 0.7 See_Comment [Aut omated message] The = Monocytes #) system which generated this result tra nsmitted reference range : <=0.8. The reference r boubacar was not used to int erpret this result as normal/abnormal . [facility] CenterTflkqdoYVMVFHREAW1079-60-18 21:03:00 Test Item Value Reference Range Interpretation Comments Eosinophils # (test code 0.2 See_Comment [A utomated message] The = Eosinophils #) system whic h generated this result tra nsmitted reference range : <=0.5. The reference r boubacar was not used to int erpret this result as normal/abnormal . [facility] CenterYzzoputSHMYPSVLLE6439-81-05 21:03:00 Test Item Value Reference Range Interpretation Comments WBC (test code = WBC) 8.0 3.7-10.4 [facility] CenterWqaujccHRPTOEUUQO7072-41-01 21:03:00 Test Item Value Reference Range Interpretation Comments RBC (test code = RBC) 5.37 4.70-6.10 [facility] CenterUpvpavdNAYGCNXCBU8199-95-25 21:03:00 Test Item Value Reference Range Interpretation Comments Hgb (test code = Hgb) 15.9 14.0-18.0 [facility] CenterBcdrtihMUUYFNRYSK6330-51-33 21:03:00 Test Item Value Reference Range Interpretation Comments Hct (test code = Hct) 47.3 42.0-54.0 [facility] CenterPmeghzwHJUQIBYCIX6659-17-29 21:03:00 Test Item Value Reference Range Interpretation Comments MCV (test code = MCV) 88.1 80.0-94.0 [facility] CenterIfewbujXNLKLBXYLU1675-74-85 21:03:00 Test Item Value Reference Range Interpretation Comments MCH (test code = MCH) 29.6 pg 27.0-31.0 [facility] CenterElxwpyuLCLGZGKHSB1461-38-01 21:03:00 Test Item Value Reference Range Interpretation Comments MCHC (test code = MCHC) 33.6 32.0-36.0 [facility] CenterWbhajyjYWJNQTQNUY0924-07-84 21:03:00 Test Item Value Reference Range Interpretation Comments RDW (test code = RDW) 15.3 11.5-14.5 [facility] CenterNuldchlPZXOPSOHRU5839-17-06 21:03:00 Test Item Value Reference Range Interpretation Comments Platelet (test code = Platelet) 370 133-450 [facility] CenterHalyufaKPHLBROXCK1807-68-09 21:03:00 Test Item Value Reference Range Interpretation Comments MPV (test code = MPV) 8.1 7.4-10.4 [facility] AND [id number] 21:03:00 Test Item Value Reference Range Interpretation Comments UA Comment 1 (test Suboptimal specimen code = UA Comment 1) received. Results may be inaccurate due to the age of the specimen. Interpret results with caution. [facility] AND [id number] 21:03:00 Test Item Value Reference Range Interpretation Comments UA Color (test code = Yellow *NA*(10/07/21 UA Color) 4:03 PM) [facility] AND [id number] 21:03:00 Test Item Value Reference Range Interpretation Comments UA Turbidity (test code Slight *ABN*(10/07/21 = UA Turbidity) 4:03 PM) [facility] AND [id number] 21:03:00 Test Item Value Reference Range Interpretation Comments UA Spec Grav (test code = UA Spec 1.015 1 Grav) [facility] AND [id number] 21:03:00 Test Item Value Reference Range Interpretation Comments UA pH (test code = UA pH) 5.0 1 5.0-8.0 [facility] AND [id number] 21:03:00 Test Item Value Reference Range Interpretation Comments UA Protein (test code = UA Negative mg/dL Protein) [facility] AND [id number] 21:03:00 Test Item Value Reference Range Interpretation Comments UA Glucose (test code = UA Negative mg/dL Glucose) [facility] AND [id number] 21:03:00 Test Item Value Reference Range Interpretation Comments UA Ketones (test code = UA Negative mg/dL Ketones) [facility] AND [id number] 21:03:00 Test Item Value Reference Range Interpretation Comments UA Bili (test code = Negative *NA*(10/07/21 UA Bili) 4:03 PM) [facility] AND [id number] 21:03:00 Test Item Value Reference Range Interpretation Comments UA Blood (test code = Negative (10/07/21 4:03 UA Blood) PM) [facility] AND [id number] 21:03:00 Test Item Value Reference Range Interpretation Comments UA Urobilinogen (test code = UA no gt 0.1-1.0 Urobilinogen) [facility] AND [id number] 21:03:00 Test Item Value Reference Range Interpretation Comments UA Nitrite (test code Negative (10/07/21 4:03 = UA Nitrite) PM) [facility] AND [id number] 21:03:00 Test Item Value Reference Range Interpretation Comments UA Leuk Est (test code Large *ABN*(10/07/21 = UA Leuk Est) 4:03 PM) [facility] AND [id number] 21:03:00 Test Item Value Reference Range Interpretation Comments UA WBC (test code = 64 See_Comment [Automa lester message] The UA WBC) system which ge nerated this result transmit lester reference range : <=5. The reference range was not used to interpr et this result as dany l/abnormal. [facility] AND [id number] 21:03:00 Test Item Value Reference Range Interpretation Comments UA RBC (test code = 2 See_Comment [Automa lester message] The UA RBC) system which ge nerated this result transmit lester reference range : <=2. The reference range was not used to interpr et this result as dany l/abnormal. [facility] AND [id number] 21:03:00 Test Item Value Reference Range Interpretation Comments UA Mucus (test code = UA Mucus) Few /LPF [facility] AND [id number] 21:03:00 Test Item Value Reference Range Interpretation Comments UA Sq Epi (test code = UA Sq Epi) [facility] [id number] 09:58:00 Test Item Value Reference Range Interpretation Comments Lactic Acid Lvl (test code = Lactic 2.4 0.5-2.2 Acid Lvl) [facility]BkqkgluNJSEMAINXS8987-38-41 09:58:00 Test Item Value Reference Range Interpretation Comments Sed Rate (test code = 13 See_Comment [Auto mated message] The Sed Rate) system which ge nerated this result transmit lester reference range : <=15. The reference range was not used to interpr et this result as dany l/abnormal. [facility] H[id number] 09:58:00 Test Item Value Reference Range Interpretation Comments C-REACTIVE PROTEIN (test code = 10.6 C-REACTIVE PROTEIN) [facility]2022-03-26 09:58:00 Test Item Value Reference Range Interpretation Comments Lactic Acid Lvl (test code = Lactic 2.4 0.5-2.2 Acid Lvl) [place] 211002-03-26 09:58:00 Test Item Value Reference Range Interpretation Comments Sed Rate (test code = 13 See_Comment [Auto mated message] The Sed Rate) system which ge nerated this result transmit lester reference range : <=15. The reference range was not used to interpr et this result as dany l/abnormal. [place] [address]-03-26 09:58:00 Test Item Value Reference Range Interpretation Comments C-REACTIVE PROTEIN (test code = 10.6 C-REACTIVE PROTEIN) [facility]2022-03-26 09:58:00 Test Item Value Reference Range Interpretation Comments Lactic Acid Lvl (test code = Lactic 2.4 0.5-2.2 Acid Lvl) [place] 211002-03-26 09:58:00 Test Item Value Reference Range Interpretation Comments Sed Rate (test code = 13 See_Comment [Auto mated message] The Sed Rate) system which ge nerated this result transmit lester reference range : <=15. The reference range was not used to interpr et this result as dany l/abnormal. [place] [address]-03-26 09:58:00 Test Item Value Reference Range Interpretation Comments C-REACTIVE PROTEIN (test code = 10.6 C-REACTIVE PROTEIN) [facility]2022-03-25 18:36:00 Test Item Value Reference Range Interpretation Comments Protein CSF (test code = Protein CSF) 14 15-45 [place] 058792-03-25 18:36:00 Test Item Value Reference Range Interpretation Comments Glucose CSF (test code = Glucose CSF) 67 45-80 [place] 058792-03-25 18:36:00 Test Item Value Reference Range Interpretation Comments Tube Num CSF (test xxxxxxx (10/06/21 1:36 code = Tube Num CSF) PM) [place] 058792-03-25 18:36:00 Test Item Value Reference Range Interpretation Comments Color CSF (test code Colorless (10/06/21 1:36 = Color CSF) PM) [facility]2022-03-25 18:36:00 Test Item Value Reference Range Interpretation Comments Clarity CSF (test code = Clear (10/06/21 1:36 Clarity CSF) PM) [facility]2022-03-25 18:36:00 Test Item Value Reference Range Interpretation Comments Supernat CSF (test Colorless (10/06/21 1:36 code = Supernat CSF) PM) [facility]2022-03-25 18:36:00 Test Item Value Reference Range Interpretation Comments Nucleated Cells CSF 0 See_Comment [Automa lester message] The (test code = Nucleated syste m which generated Cells CSF) this result tra nsmitted reference range : <=53. The reference r boubacar was not used to int erpret this result as normal/abnormal . [facility]2022-03-25 18:36:00 Test Item Value Reference Range Interpretation Comments RBC CSF (test code = 0 See_Comment [Autom ated message] The RBC CSF) system which ge nerated this result transmit lester reference range : <=03. The reference range was not used to interpr et this result as dany l/abnormal. [facility]2022-03-25 18:36:00 Test Item Value Reference Range Interpretation Comments Comment CSF (test Differential not code = Comment CSF) performed on WBC count of less than 5. [facility] [id number] 18:36:00 Test Item Value Reference Range Interpretation Comments Gram Stain Report Gram Stain Performed By: (test code = Gram [facility] Stain Report) [facility] w/Gram [id number] 18:36:00 Test Item Value Reference Range Interpretation Comments Culture: CSF w/Gram Stain (test No Growth code = Culture: CSF w/Gram Stain) [facility]2022-03-25 18:36:00 Test Item Value Reference Range Interpretation Comments Protein CSF (test code = Protein CSF) 14 15-45 [facility]2022-03-25 18:36:00 Test Item Value Reference Range Interpretation Comments Glucose CSF (test code = Glucose CSF) 67 45-80 [facility]2022-03-25 18:36:00 Test Item Value Reference Range Interpretation Comments Tube Num CSF (test xxxxxxx (10/06/21 1:36 code = Tube Num CSF) PM) [facility]2022-03-25 18:36:00 Test Item Value Reference Range Interpretation Comments Color CSF (test code Colorless (10/06/21 1:36 = Color CSF) PM) [facility]2022-03-25 18:36:00 Test Item Value Reference Range Interpretation Comments Clarity CSF (test code = Clear (10/06/21 1:36 Clarity CSF) PM) [facility]2022-03-25 18:36:00 Test Item Value Reference Range Interpretation Comments Supernat CSF (test Colorless (10/06/21 1:36 code = Supernat CSF) PM) [facility]2022-03-25 18:36:00 Test Item Value Reference Range Interpretation Comments Nucleated Cells CSF 0 See_Comment [Automa lester message] The (test code = Nucleated syste m which generated Cells CSF) this result tra nsmitted reference range : <=53. The reference r boubacar was not used to int erpret this result as normal/abnormal . [facility]2022-03-25 18:36:00 Test Item Value Reference Range Interpretation Comments RBC CSF (test code = 0 See_Comment [Autom ated message] The RBC CSF) system which ge nerated this result transmit lester reference range : <=03. The reference range was not used to interpr et this result as dany l/abnormal. [facility]2022-03-25 18:36:00 Test Item Value Reference Range Interpretation Comments Comment CSF (test Differential not code = Comment CSF) performed on WBC count of less than 5. [facility] [id number] 18:36:00 Test Item Value Reference Range Interpretation Comments Gram Stain Report Gram Stain Performed By: (test code = Gram [facility] Stain Report) [facility]: CSF w/Gram [id number] 18:36:00 Test Item Value Reference Range Interpretation Comments Culture: CSF w/Gram Stain (test No Growth code = Culture: CSF w/Gram Stain) [facility]2022-03-25 18:36:00 Test Item Value Reference Range Interpretation Comments Protein CSF (test code = Protein CSF) 14 15-45 [place] 058792-03-25 18:36:00 Test Item Value Reference Range Interpretation Comments Glucose CSF (test code = Glucose CSF) 67 45-80 [facility] [id number] 18:36:00 Test Item Value Reference Range Interpretation Comments Tube Num CSF (test xxxxxxx (10/06/21 1:36 code = Tube Num CSF) PM) [facility]2022-03-25 18:36:00 Test Item Value Reference Range Interpretation Comments Color CSF (test code Colorless (10/06/21 1:36 = Color CSF) PM) [facility] [id number] 18:36:00 Test Item Value Reference Range Interpretation Comments Clarity CSF (test code = Clear (10/06/21 1:36 Clarity CSF) PM) [facility]2022-03-25 18:36:00 Test Item Value Reference Range Interpretation Comments Supernat CSF (test Colorless (10/06/21 1:36 code = Supernat CSF) PM) [facility]2022-03-25 18:36:00 Test Item Value Reference Range Interpretation Comments Nucleated Cells CSF 0 See_Comment [Automa lester message] The (test code = Nucleated syste m which generated Cells CSF) this result tra nsmitted reference range : <=53. The reference r boubacar was not used to int erpret this result as normal/abnormal . [facility]2022-03-25 18:36:00 Test Item Value Reference Range Interpretation Comments RBC CSF (test code = 0 See_Comment [Autom ated message] The RBC CSF) system which ge nerated this result transmit lester reference range : <=03. The reference range was not used to interpr et this result as dany l/abnormal. [facility]2022-03-25 18:36:00 Test Item Value Reference Range Interpretation Comments Comment CSF (test Differential not code = Comment CSF) performed on WBC count of less than 5. [facility] Lcsbon9088-08-05 18:36:00 Test Item Value Reference Range Interpretation Comments Gram Stain Report Gram Stain Performed By: (test code = Gram [facility] Stain Report) [facility]: CSF w/Gram [id number] 18:36:00 Test Item Value Reference Range Interpretation Comments Culture: CSF w/Gram Stain (test No Growth code = Culture: CSF w/Gram Stain) [facility]cp[facility]fuQCETCSLPIV8484-59-62 08:28:00 Test Item Value Reference Range Interpretation Comments Coronavirus (COVID-19) Not Detected (10/06/21 OUMOU (test code = 3:28 AM) Coronavirus (COVID-19) OUMOU) [facility] CenterMflalpyWFSHAOJPQQ2764-06-21 08:28:00 Test Item Value Reference Range Interpretation Comments Coronavirus (COVID-19) Not Detected (10/06/21 OUMOU (test code = 3:28 AM) Coronavirus (COVID-19) OUMOU) [facility] CenterJxvqxmrHZPMKNUBVV3600-77-61 08:28:00 Test Item Value Reference Range Interpretation Comments Coronavirus (COVID-19) Not Detected (10/06/21 OUMOU (test code = 3:28 AM) Coronavirus (COVID-19) OUMOU) [facility] [id number] 06:48:00 Test Item Value Reference Range Interpretation Comments Antibody Scrn (test Negative (10/06/21 1:48 code = Antibody Scrn) AM) [facility] [id number] 06:48:00 Test Item Value Reference Range Interpretation Comments ABO/Rh (test code = ABO/Rh) AB POS [facility] CenterLjcfwrwFYYVCUOEBJ9341-87-95 06:48:00 Test Item Value Reference Range Interpretation Comments Segs (test code = Segs) 70.8 45.0-75.0 [facility] CenterOddrlrnJBQVNJVZBE0483-61-34 06:48:00 Test Item Value Reference Range Interpretation Comments Lymphocytes (test code = Lymphocytes) 20.8 20.0-40.0 [facility] CenterGpmasfuDFPEEPLCWN3783-06-79 06:48:00 Test Item Value Reference Range Interpretation Comments Monocytes (test code = Monocytes) 5.8 2.0-12.0 [facility] CenterOpqhuwtZDPGIFUEAD1936-87-03 06:48:00 Test Item Value Reference Range Interpretation Comments Eosinophils (test code = 2.3 See_Comment [A utomated message] The Eosinophils) system which ge nerated this result tra nsmitted reference range : <=4.0. The reference r boubacar was not used to int erpret this result as normal/abnormal . [facility] CenterGdrzvuiHAGLVPYWFO7943-89-36 06:48:00 Test Item Value Reference Range Interpretation Comments Basophils (test code = 0.3 See_Comment [Aut omated message] The Basophils) system which ge nerated this result tra nsmitted reference range : <=1.0. The reference r boubacar was not used to int erpret this result as normal/abnormal . [facility] CenterRvkxmhuPYPFDRZXER5154-60-68 06:48:00 Test Item Value Reference Range Interpretation Comments Neutrophils # (test code = Neutrophils 8.4 1.5-8.1 #) [place] 211002-03-25 06:48:00 Test Item Value Reference Range Interpretation Comments Lymphocytes # (test code = Lymphocytes 2.5 1.0-5.5 #) [place] 211002-03-25 06:48:00 Test Item Value Reference Range Interpretation Comments Monocytes # (test code 0.7 See_Comment [Aut omated message] The = Monocytes #) system which generated this result tra nsmitted reference range : <=0.8. The reference r boubacar was not used to int erpret this result as normal/abnormal . [place] 211002-03-25 06:48:00 Test Item Value Reference Range Interpretation Comments Eosinophils # (test code 0.3 See_Comment [A utomated message] The = Eosinophils #) system whic h generated this result tra nsmitted reference range : <=0.5. The reference r boubacar was not used to int erpret this result as normal/abnormal . [facility] CenterIiuvnzcKDEZYTCTRX0183-45-38 06:48:00 Test Item Value Reference Range Interpretation Comments WBC X 10x3 (test code = WBC X 10x3) 11.9 3.7-10.4 [place] 211002-03-25 06:48:00 Test Item Value Reference Range Interpretation Comments RBC X 10x6 (test code = RBC X 10x6) 5.95 4.70-6.10 [place] 211002-03-25 06:48:00 Test Item Value Reference Range Interpretation Comments Hgb (test code = Hgb) 17.9 14.0-18.0 [place] 211002-03-25 06:48:00 Test Item Value Reference Range Interpretation Comments Hct (test code = Hct) 52.0 42.0-54.0 [place] 211002-03-25 06:48:00 Test Item Value Reference Range Interpretation Comments MCV (test code = MCV) 87.5 80.0-94.0 [facility]TooirtyJFKFBPFPAL5280-72-25 06:48:00 Test Item Value Reference Range Interpretation Comments MCH (test code = MCH) 30.2 pg 27.0-31.0 [facility] HospitalLehynykCEABNISKDW4713-67-10 06:48:00 Test Item Value Reference Range Interpretation Comments MCHC (test code = MCHC) 34.5 32.0-36.0 [facility] HospitalBqvgejbODAMCETXUY8185-68-34 06:48:00 Test Item Value Reference Range Interpretation Comments RDW (test code = RDW) 15.4 11.5-14.5 [facility] HospitalIxebnjrTSQLCRRFVA9412-14-12 06:48:00 Test Item Value Reference Range Interpretation Comments Platelet (test code = Platelet) 414 133-450 [facility] HospitalXkltfjdGASFDWDHLJ7983-51-75 06:48:00 Test Item Value Reference Range Interpretation Comments MPV (test code = MPV) 8.5 7.4-10.4 [facility] HospitalRipypusUHRGBICGJU2933-60-50 06:48:00 Test Item Value Reference Range Interpretation Comments PT (test code = PT) 12.9 s 12.0-14.7 [facility] HospitalAverwalNSPZBUZKVH5552-12-65 06:48:00 Test Item Value Reference Range Interpretation Comments INR (test code = INR) 0.98 1 0.85-1.17 [facility] HospitalSdlogstUEMGSFTAEU7458-33-46 06:48:00 Test Item Value Reference Range Interpretation Comments PTT (test code = PTT) 31.4 s 22.9-35.8 [facility] [employer] OEDJUHH9625-51-99 06:48:00 Test Item Value Reference Range Interpretation Comments Antibody Scrn (test Negative (10/06/21 1:48 code = Antibody Scrn) AM) [facility] [employer] FKBIVOF0481-62-42 06:48:00 Test Item Value Reference Range Interpretation Comments ABO/Rh (test code = ABO/Rh) AB POS [facility] GbjehaeZOASEJRNHC9169-76-23 06:48:00 Test Item Value Reference Range Interpretation Comments Segs (test code = Segs) 70.8 45.0-75.0 [facility] HospitalJerwmllDQLIVPATHL1923-05-97 06:48:00 Test Item Value Reference Range Interpretation Comments Lymphocytes (test code = Lymphocytes) 20.8 20.0-40.0 [place] [address]-03-25 06:48:00 Test Item Value Reference Range Interpretation Comments Monocytes (test code = Monocytes) 5.8 2.0-12.0 [place] [address]-03-25 06:48:00 Test Item Value Reference Range Interpretation Comments Eosinophils (test code = 2.3 See_Comment [A utomated message] The Eosinophils) system which ge nerated this result tra nsmitted reference range : <=4.0. The reference r boubacar was not used to int erpret this result as normal/abnormal . [place] [address]-03-25 06:48:00 Test Item Value Reference Range Interpretation Comments Basophils (test code = 0.3 See_Comment [Aut omated message] The Basophils) system which ge nerated this result tra nsmitted reference range : <=1.0. The reference r boubacar was not used to int erpret this result as normal/abnormal . [place] [address]-03-25 06:48:00 Test Item Value Reference Range Interpretation Comments Neutrophils # (test code = Neutrophils 8.4 1.5-8.1 #) [place] [address]-03-25 06:48:00 Test Item Value Reference Range Interpretation Comments Lymphocytes # (test code = Lymphocytes 2.5 1.0-5.5 #) [place] [address]-03-25 06:48:00 Test Item Value Reference Range Interpretation Comments Monocytes # (test code 0.7 See_Comment [Aut omated message] The = Monocytes #) system which generated this result tra nsmitted reference range : <=0.8. The reference r boubacar was not used to int erpret this result as normal/abnormal . [place] [address]-03-25 06:48:00 Test Item Value Reference Range Interpretation Comments Eosinophils # (test code 0.3 See_Comment [A utomated message] The = Eosinophils #) system whic h generated this result tra nsmitted reference range : <=0.5. The reference r boubacar was not used to int erpret this result as normal/abnormal . [place] 211002-03-25 06:48:00 Test Item Value Reference Range Interpretation Comments WBC X 10x3 (test code = WBC X 10x3) 11.9 3.7-10.4 [facility] CenterMmhjczuLUXZUYYRWD5472-60-09 06:48:00 Test Item Value Reference Range Interpretation Comments RBC X 10x6 (test code = RBC X 10x6) 5.95 4.70-6.10 [facility] CenterAumzjsyCNQVFXFWXB6042-56-75 06:48:00 Test Item Value Reference Range Interpretation Comments Hgb (test code = Hgb) 17.9 14.0-18.0 [facility] CenterWnhpisbYLIZDUTTRJ2392-38-17 06:48:00 Test Item Value Reference Range Interpretation Comments Hct (test code = Hct) 52.0 42.0-54.0 [facility] CenterKhaisspHOCSBKVYLZ4957-71-25 06:48:00 Test Item Value Reference Range Interpretation Comments MCV (test code = MCV) 87.5 80.0-94.0 [facility] CenterNosrevuBDGGDYZHWI7318-08-61 06:48:00 Test Item Value Reference Range Interpretation Comments MCH (test code = MCH) 30.2 pg 27.0-31.0 [facility] CenterUpddavfABEQIWDIHQ7111-37-28 06:48:00 Test Item Value Reference Range Interpretation Comments MCHC (test code = MCHC) 34.5 32.0-36.0 [facility] CenterNoefjpcIAKBVVNWVW3591-67-01 06:48:00 Test Item Value Reference Range Interpretation Comments RDW (test code = RDW) 15.4 11.5-14.5 [facility] CenterUdisvwcNZZMFARJVS0407-99-08 06:48:00 Test Item Value Reference Range Interpretation Comments Platelet (test code = Platelet) 414 133-450 [facility] CenterGkusdjbZBLEDYFQVG3579-59-12 06:48:00 Test Item Value Reference Range Interpretation Comments MPV (test code = MPV) 8.5 7.4-10.4 [facility] CenterRvewpxqISEYKWQGLC4140-26-91 06:48:00 Test Item Value Reference Range Interpretation Comments PT (test code = PT) 12.9 s 12.0-14.7 [facility] CenterThygiaqTFFUJHOQTU1975-26-60 06:48:00 Test Item Value Reference Range Interpretation Comments INR (test code = INR) 0.98 1 0.85-1.17 [facility] CenterJltedklKWBBLVOOIY9426-41-95 06:48:00 Test Item Value Reference Range Interpretation Comments PTT (test code = PTT) 31.4 s 22.9-35.8 [facility] IITRDRI4729-34-58 06:48:00 Test Item Value Reference Range Interpretation Comments Antibody Scrn (test Negative (10/06/21 1:48 code = Antibody Scrn) AM) [facility] GAEXUTJ1729-62-39 06:48:00 Test Item Value Reference Range Interpretation Comments ABO/Rh (test code = ABO/Rh) AB POS [facility] CenterFzwxnutQLMIDGDIAO3361-83-94 06:48:00 Test Item Value Reference Range Interpretation Comments Segs (test code = Segs) 70.8 45.0-75.0 [facility] CenterBgbzmhaINBCBNKAFB4753-49-16 06:48:00 Test Item Value Reference Range Interpretation Comments Lymphocytes (test code = Lymphocytes) 20.8 20.0-40.0 [facility] CenterRpojvjdRBZTSEFJPP7212-13-17 06:48:00 Test Item Value Reference Range Interpretation Comments Monocytes (test code = Monocytes) 5.8 2.0-12.0 [facility] CenterLommilaFFZFQLQRBH8933-19-67 06:48:00 Test Item Value Reference Range Interpretation Comments Eosinophils (test code = 2.3 See_Comment [A utomated message] The Eosinophils) system which ge nerated this result tra nsmitted reference range : <=4.0. The reference r boubacar was not used to int erpret this result as normal/abnormal . [facility] CenterYfztmqpVGHCWEEVDH5546-16-46 06:48:00 Test Item Value Reference Range Interpretation Comments Basophils (test code = 0.3 See_Comment [Aut omated message] The Basophils) system which ge nerated this result tra nsmitted reference range : <=1.0. The reference r boubacar was not used to int erpret this result as normal/abnormal . [facility] CenterFhotyspPSEOIXVZNW1904-95-46 06:48:00 Test Item Value Reference Range Interpretation Comments Neutrophils # (test code = Neutrophils 8.4 1.5-8.1 #) [facility] CenterMddfawwQBLYBQSZWQ8896-98-16 06:48:00 Test Item Value Reference Range Interpretation Comments Lymphocytes # (test code = Lymphocytes 2.5 1.0-5.5 #) [facility] CenterYufilwzOQRLJCPGXT4287-70-24 06:48:00 Test Item Value Reference Range Interpretation Comments Monocytes # (test code 0.7 See_Comment [Aut omated message] The = Monocytes #) system which generated this result tra nsmitted reference range : <=0.8. The reference r boubacar was not used to int erpret this result as normal/abnormal . [facility] CenterUivnsovEFBHQUMYQV3593-84-61 06:48:00 Test Item Value Reference Range Interpretation Comments Eosinophils # (test code 0.3 See_Comment [A utomated message] The = Eosinophils #) system whic h generated this result tra nsmitted reference range : <=0.5. The reference r boubacar was not used to int erpret this result as normal/abnormal . [facility] CenterOzlfvpvLLMDYDGTEE3866-63-64 06:48:00 Test Item Value Reference Range Interpretation Comments WBC X 10x3 (test code = WBC X 10x3) 11.9 3.7-10.4 [facility] CenterIrqovzoDRKJOGZKGP4605-36-95 06:48:00 Test Item Value Reference Range Interpretation Comments RBC X 10x6 (test code = RBC X 10x6) 5.95 4.70-6.10 [facility] CenterWlaldcaNXXMDGIKLS6941-71-15 06:48:00 Test Item Value Reference Range Interpretation Comments Hgb (test code = Hgb) 17.9 14.0-18.0 [facility] CenterVfnzhuiTAOFVHBBWA4986-01-46 06:48:00 Test Item Value Reference Range Interpretation Comments Hct (test code = Hct) 52.0 42.0-54.0 [facility] CenterCpwtjrnJMIXPVXVNW7357-12-32 06:48:00 Test Item Value Reference Range Interpretation Comments MCV (test code = MCV) 87.5 80.0-94.0 [facility] CenterTpaxlauBKIBOTZBWF5776-53-98 06:48:00 Test Item Value Reference Range Interpretation Comments MCH (test code = MCH) 30.2 pg 27.0-31.0 [facility] CenterWpfhggsYUHHZUCFPY2389-92-30 06:48:00 Test Item Value Reference Range Interpretation Comments MCHC (test code = MCHC) 34.5 32.0-36.0 [facility] CenterDcykekgLPWPCTJWRL0636-09-17 06:48:00 Test Item Value Reference Range Interpretation Comments RDW (test code = RDW) 15.4 11.5-14.5 [facility] CenterFzbqlxrIWEUZHQXYB0956-35-20 06:48:00 Test Item Value Reference Range Interpretation Comments Platelet (test code = Platelet) 414 133-450 [facility] CenterDvcadhmXGKENEWBPN5431-16-65 06:48:00 Test Item Value Reference Range Interpretation Comments MPV (test code = MPV) 8.5 7.4-10.4 [facility] CenterZysdyqoCNSADIMZDA8856-25-93 06:48:00 Test Item Value Reference Range Interpretation Comments PT (test code = PT) 12.9 s 12.0-14.7 [facility] CenterRpkswpmBZKEOAHMEV9774-25-30 06:48:00 Test Item Value Reference Range Interpretation Comments INR (test code = INR) 0.98 1 0.85-1.17 [facility] CenterIccgvmpTLNLSQNHDY9086-95-88 06:48:00 Test Item Value Reference Range Interpretation Comments PTT (test code = PTT) 31.4 s 22.9-35.8 [facility] WITH BSJU8438-98-93 00:23:28 Test Item Value Reference Range Interpretation Comments WBC (test code = See_Comment H [Automated 7590-2) message] The sy stem which generated this [...] RDW-SD (test code = 47.6 fL 38.5-51.6 99104-2) RDW-CV (test code = 15.1 % 12.1-15.4 788-0) PLT (test code = See_Comment H [Automated 777-3) message] The sy stem which generated this result transmitted reference range : 150 - 328 10*3/ ?L. The reference r boubacar was not used to interpret this result as normal/abnormal . MPV (test code = 10.5 fL 9.8-13.0 83894-4) NRBC/100 WBC (test See_Comment [Automat ed code = [id number]) message] The system which generated this result transmitted reference range : 0.0 - 10.0 /100 WBCs. The refer ence range was not u sed to interpret th is result as normal/abnormal . NRBC x10^3 (test code <0.01 See_Comment [Auto mated = [id number]) message] The s ystem which generated this result transmitted reference range : 10*3/?L. The reference range was not used to interpret this result as normal/abnormal . GRAN MAT (NEUT) % 66.7 % (test code = 770-8) IMM GRAN % (test code 0.40 % = [id number]) LYMPH % (test code = 24.4 % 736-9) MONO % (test code = 6.6 % 5905-5) EOS % (test code = 1.5 % 713-8) BASO % (test code = 0.4 % 706-2) GRAN MAT x10^3(ANC) 7.43 10*3/uL 1.99-6.95 H (test code = 6301168049) IMM GRAN x10^3 (test 0.04 10*3/uL 0.00-0.06 code = 7952501925) LYMPH x10^3 (test code 2.72 10*3/uL 1.09-3.23 = 731-0) MONO x10^3 (test code 0.74 10*3/uL 0.36-1.02 = 742-7) EOS x10^3 (test code = 0.17 10*3/uL 0.06-0.53 711-2) BASO x10^3 (test code 0.04 10*3/uL 0.01-0.09 = 704-7) Lab Interpretation Abnormal (test code = 99272-0) [facility]. METABOLIC PANEL ([id number])2021-09-29 00:18:07 Test Item Value Reference Range Interpretation Comments NA (test code = 139 mmol/L 135-145 6267301438) K (test code = 4.8 mmol/L 3.5-5.0 6835953216) CL (test code = 104 mmol/L 98-108 3051110413) CO2 TOTAL (test code = 22 mmol/L 23-31 L 2821394428) AGAP (test code = 2-16 8001037685) BUN (test code = 15 mg/dL 7-23 9879011296) GLUCOSE (test code = 93 mg/dL 70-110 8461672250) CREATININE (test code = 0.67 mg/dL 0.60-1.25 0404880004) TOTAL BILI (test code = 0.7 mg/dL 0.1-1.2 1079986349) CALCIUM (test code = 9.8 mg/dL 8.6-10.6 9240703302) T PROTEIN (test code = 8.9 g/dL 6.3-8.2 H 8171920920) ALBUMIN (test code = 4.9 g/dL 3.5-5.0 7808660925) ALK PHOS (test code = 126 U/L 34-122 H 4204456344) ALTv (test code = 43 U/L 5-50 1742-6) AST(SGOT) (test code = 28 U/L 13-40 3192372876) eGFR (test code = mL/min/1.73m2 9845506120) ARPITA (test code = ARPITA) Association of [...] tests). Lab Interpretation Abnormal (test code = 75137-0) [facility]. METABOLIC PANEL ([id number])2021-08-06 12:48:40 Test Item Value Reference Range Interpretation Comments NA (test code = 137 mmol/L 135-145 7828900028) K (test code = 4.5 mmol/L 3.5-5.0 8537420084) CL (test code = 107 mmol/L 98-108 3237742473) CO2 TOTAL (test code = 24 mmol/L 23-31 9515002588) AGAP (test code = 2-16 0669066500) BUN (test code = 16 mg/dL 7-23 7993373474) GLUCOSE (test code = 116 mg/dL 70-110 H 4824868353) CREATININE (test code = 0.62 mg/dL 0.60-1.25 0241001425) TOTAL BILI (test code = 0.4 mg/dL 0.1-1.1 5766924209) CALCIUM (test code = 8.7 mg/dL 8.6-10.6 4867712656) T PROTEIN (test code = 7.5 g/dL 6.3-8.2 3222016227) ALBUMIN (test code = 3.9 g/dL 3.5-5.0 5944960896) ALK PHOS (test code = 93 U/L 34-122 5880650130) ALTv (test code = 40 U/L 5-50 1742-6) AST(SGOT) (test code = 51 U/L 13-40 H 7201633250) eGFR (test code = mL/min/1.73m2 7979055925) ARPITA (test code = ARPITA) Association of [...] tests). Lab Interpretation Abnormal (test code = 64422-1) [facility] WITH [id number] 12:21:36 Test Item Value Reference Range Interpretation Comments WBC (test code = See_Comment [Automated 9240-2) message] The sy stem which generated this result transmitted reference range : 4.20 - 10.70 10*3/?L. The reference range was not used to interpret this result as normal/abnormal . RBC (test code = See_Comment [Automated 153-8) message] The sy stem which generated this [...] RDW-SD (test code = 50.6 fL 38.5-51.6 23249-8) RDW-CV (test code = 15.3 % 12.1-15.4 788-0) PLT (test code = See_Comment H [Automated 777-3) message] The sy stem which generated this result transmitted reference range : 150 - 328 10*3/ ?L. The reference r boubacar was not used to interpret this result as normal/abnormal . MPV (test code = 10.3 fL 9.8-13.0 92873-7) NRBC/100 WBC (test See_Comment [Automat ed code = 5399868788) message] The system which generated this result transmitted reference range : 0.0 - 10.0 /100 WBCs. The refer ence range was not u sed to interpret th is result as normal/abnormal . NRBC x10^3 (test code <0.01 See_Comment [Auto mated = 9929501057) message] The s ystem which generated this result transmitted reference range : 10*3/?L. The reference range was not used to interpret this result as normal/abnormal . GRAN MAT (NEUT) % 61.5 % (test code = 770-8) IMM GRAN % (test code 0.80 % = 4697754268) LYMPH % (test code = 27.8 % 736-9) MONO % (test code = 6.9 % 5905-5) EOS % (test code = 2.4 % 713-8) BASO % (test code = 0.6 % 706-2) GRAN MAT x10^3(ANC) 6.07 10*3/uL 1.99-6.95 (test code = 4081428685) IMM GRAN x10^3 (test 0.08 10*3/uL 0.00-0.06 H code = 0008197525) LYMPH x10^3 (test code 2.75 10*3/uL 1.09-3.23 = 731-0) MONO x10^3 (test code 0.68 10*3/uL 0.36-1.02 = 742-7) EOS x10^3 (test code = 0.24 10*3/uL 0.06-0.53 711-2) BASO x10^3 (test code 0.06 10*3/uL 0.01-0.09 = 704-7) Lab Interpretation Abnormal (test code = 19740-8) [facility] Metabolic Panel (NA, K, CL, CO2, GLUCOSE, BUN, CREATININE, CA)2021-08-04 12:40:30 Test Item Value Reference Range Interpretation Comments NA (test code = 139 mmol/L 135-145 4790368373) K (test code = 3.9 mmol/L 3.5-5.0 1846247466) CL (test code = 108 mmol/L 98-108 7770323665) CO2 TOTAL (test code = 25 mmol/L 23-31 4651078935) AGAP (test code = 2-16 7231033600) BUN (test code = 14 mg/dL 7-23 2764281729) GLUCOSE (test code = 107 mg/dL 70-110 8225861197) CREATININE (test code = 0.61 mg/dL 0.60-1.25 3654680119) CALCIUM (test code = 8.1 mg/dL 8.6-10.6 L 8528876609) eGFR (test code = mL/min/1.73m2 2692546993) ARPITA (test code = ARPITA) Association of [...] tests). Lab Interpretation Abnormal (test code = 69598-7) [facility] with [id number] 12:23:51 Test Item Value Reference Range Interpretation Comments WBC (test code = See_Comment [Automated 2468-2) message] The sy stem which generated this result transmitted reference range : 4.20 - 10.70 10*3/?L. The reference range was not used to interpret this result as normal/abnormal . RBC (test code = See_Comment [Automated 609-8) message] The sy stem which generated this [...] RDW-SD (test code = 49.3 fL 38.5-51.6 96020-0) RDW-CV (test code = 15.3 % 12.1-15.4 788-0) PLT (test code = See_Comment H [Automated 997-3) message] The sy stem which generated this result transmitted reference range : 150 - 328 10*3/ ?L. The reference r boubacar was not used to interpret this result as normal/abnormal . MPV (test code = 10.2 fL 9.8-13.0 28228-2) NRBC/100 WBC (test See_Comment [Automat ed code = 7240574189) message] The system which generated this result transmitted reference range : 0.0 - 10.0 /100 WBCs. The refer ence range was not u sed to interpret th is result as normal/abnormal . NRBC x10^3 (test code <0.01 See_Comment [Auto mated = 7108462484) message] The s ystem which generated this result transmitted reference range : 10*3/?L. The reference range was not used to interpret this result as normal/abnormal . GRAN MAT (NEUT) % 56.7 % (test code = 770-8) IMM GRAN % (test code 0.60 % = 0989976016) LYMPH % (test code = 31.1 % 736-9) MONO % (test code = 8.7 % 5905-5) EOS % (test code = 2.4 % 713-8) BASO % (test code = 0.5 % 706-2) GRAN MAT x10^3(ANC) 4.83 10*3/uL 1.99-6.95 (test code = 0451437651) IMM GRAN x10^3 (test 0.05 10*3/uL 0.00-0.06 code = 9530183854) LYMPH x10^3 (test code 2.64 10*3/uL 1.09-3.23 = 731-0) MONO x10^3 (test code 0.74 10*3/uL 0.36-1.02 = 742-7) EOS x10^3 (test code = 0.20 10*3/uL 0.06-0.53 711-2) BASO x10^3 (test code 0.04 10*3/uL 0.01-0.09 = 704-7) Lab Interpretation Abnormal (test code = 65622-9) [facility]. METABOLIC PANEL ([id number])2021-08-03 06:32:14 Test Item Value Reference Range Interpretation Comments NA (test code = 139 mmol/L 135-145 5670806110) K (test code = 4.5 mmol/L 3.5-5.0 3761218286) CL (test code = 102 mmol/L 98-108 7621721859) CO2 TOTAL (test code = 26 mmol/L 23-31 7526017316) AGAP (test code = 2-16 9011036515) BUN (test code = 16 mg/dL 7-23 9397662712) GLUCOSE (test code = 99 mg/dL 70-110 3889651669) CREATININE (test code = 0.83 mg/dL 0.60-1.25 3233627514) TOTAL BILI (test code = 0.6 mg/dL 0.1-1.8 5315688696) CALCIUM (test code = 9.5 mg/dL 8.6-10.6 7652838816) T PROTEIN (test code = 8.6 g/dL 6.3-8.2 H 0233671665) ALBUMIN (test code = 4.6 g/dL 3.5-5.0 5831237466) ALK PHOS (test code = 121 U/L 34-122 0145728806) ALTv (test code = 58 U/L 5-50 H 2-6) AST(SGOT) (test code = 32 U/L 13-40 6848317972) eGFR (test code = mL/min/1.73m2 4355174135) ARPITA (test code = ARPITA) Association of [...] tests). Lab Interpretation Abnormal (test code = 75620-3) [facility] WITH [id number] 05:48:31 Test Item Value Reference Range Interpretation [...] RDW-SD (test code = 49.1 fL 38.5-51.6 69984-5) RDW-CV (test code = 15.5 % 12.1-15.4 H 788-0) PLT (test code = See_Comment H [Automated 777-3) message] The sy stem which generated this result transmitted reference range : 150 - 328 10*3/ ?L. The reference r boubacar was not used to interpret this result as normal/abnormal . MPV (test code = 10.4 fL 9.8-13.0 52815-2) NRBC/100 WBC (test See_Comment [Automat ed code = 0674028873) message] The system which generated this result transmitted reference range : 0.0 - 10.0 /100 WBCs. The refer ence range was not u sed to interpret th is result as normal/abnormal . NRBC x10^3 (test code <0.01 See_Comment [Auto mated = 2164117796) message] The s ystem which generated this result transmitted reference range : 10*3/?L. The reference range was not used to interpret this result as normal/abnormal . GRAN MAT (NEUT) % 64.8 % (test code = 770-8) IMM GRAN % (test code 0.70 % = 6645930904) LYMPH % (test code = 25.2 % 736-9) MONO % (test code = 6.9 % 5905-5) EOS % (test code = 1.9 % 713-8) BASO % (test code = 0.5 % 706-2) GRAN MAT x10^3(ANC) 7.80 10*3/uL 1.99-6.95 H (test code = 7175149304) IMM GRAN x10^3 (test 0.08 10*3/uL 0.00-0.06 H code = 4256799391) LYMPH x10^3 (test code 3.04 10*3/uL 1.09-3.23 = 731-0) MONO x10^3 (test code 0.83 10*3/uL 0.36-1.02 = 742-7) EOS x10^3 (test code = 0.23 10*3/uL 0.06-0.53 711-2) BASO x10^3 (test code 0.06 10*3/uL 0.01-0.09 = 704-7) Lab Interpretation Abnormal (test code = 97672-9) [facility]12332[facility]21-08-01 02:19:08 Test Item Value Reference Range Interpretation Comments NA (test code = 136 mmol/L 135-145 5203782457) K (test code = 4.4 mmol/L 3.5-5.0 6438307891) CL (test code = 99 mmol/L 98-108 4980283451) CO2 TOTAL (test code = 25 mmol/L 23-31 5123298073) AGAP (test code = 2-16 5935121771) BUN (test code = 19 mg/dL 7-23 4821063917) GLUCOSE (test code = 103 mg/dL 70-110 0473764569) CREATININE (test code = 0.70 mg/dL 0.60-1.25 1963102925) TOTAL BILI (test code = 0.7 mg/dL 0.1-1.9 0730827993) CALCIUM (test code = 9.2 mg/dL 8.6-10.6 3994522770) T PROTEIN (test code = 9.4 g/dL 6.3-8.2 H 3841231134) ALBUMIN (test code = 4.8 g/dL 3.5-5.0 8458976207) ALK PHOS (test code = 146 U/L 34-122 H 3411233585) ALTv (test code = 75 U/L 5-50 H 1742-6) AST(SGOT) (test code = 37 U/L 13-40 4081024637) eGFR (test code = mL/min/1.73m2 6938345778) ARPITA (test code = ARPITA) Association of [...] tests). Lab Interpretation Abnormal (test code = 01722-8) [facility]18[facility]27 Test Item Value Reference Range Interpretation Comments LIPASE (test code = 2517290531) 86 U/L 0-220 Lab Interpretation (test code = Normal 75127-5) [facility] [id number] 01:55:49 Test Item Value Reference Range Interpretation [...] RDW-SD (test code = 48.7 fL 38.5-51.6 40346-2) RDW-CV (test code = 15.4 % 12.1-15.4 788-0) PLT (test code = See_Comment H [Automated 777-3) message] The sy stem which generated this result transmitted reference range : 150 - 328 10*3/ ?L. The reference r boubacar was not used to interpret this result as normal/abnormal . MPV (test code = 9.9 fL 9.8-13.0 43661-9) NRBC/100 WBC (test See_Comment [Automat ed code = 5876893128) message] The system which generated this result transmitted reference range : 0.0 - 10.0 /100 WBCs. The refer ence range was not u sed to interpret th is result as normal/abnormal . NRBC x10^3 (test code <0.01 See_Comment [Auto mated = 3642544600) message] The s ystem which generated this result transmitted reference range : 10*3/?L. The reference range was not used to interpret this result as normal/abnormal . GRAN MAT (NEUT) % 69.8 % (test code = 770-8) IMM GRAN % (test code 0.50 % = 4569712351) LYMPH % (test code = 20.5 % 736-9) MONO % (test code = 6.8 % 5905-5) EOS % (test code = 1.9 % 713-8) BASO % (test code = 0.5 % 706-2) GRAN MAT x10^3(ANC) 7.72 10*3/uL 1.99-6.95 H (test code = 0696576655) IMM GRAN x10^3 (test 0.05 10*3/uL 0.00-0.06 code = 3809473332) LYMPH x10^3 (test code 2.26 10*3/uL 1.09-3.23 = 731-0) MONO x10^3 (test code 0.75 10*3/uL 0.36-1.02 = 742-7) EOS x10^3 (test code = 0.21 10*3/uL 0.06-0.53 711-2) BASO x10^3 (test code 0.06 10*3/uL 0.01-0.09 = 704-7) Lab Interpretation Abnormal (test code = 35599-9) [facility][id number] 23:33:52 Test Item Value Reference Interpretation Comments Range D-DIMER (test code = See_Comment [Autom ated 5698885083) message] The system which generated this result [...] diagnosis. Lab Interpretation Normal (test code = 97116-6) [facility]. METABOLIC PANEL ([id number])2021-07-29 22:42:48 Test Item Value Reference Range Interpretation Comments NA (test code = 135 mmol/L 135-145 0446581149) K (test code = 4.6 mmol/L 3.5-5.0 1029155365) CL (test code = 102 mmol/L 98-108 9894211389) CO2 TOTAL (test code = 24 mmol/L 23-31 1662657022) AGAP (test code = 2-16 0419881070) BUN (test code = 17 mg/dL 7-23 2773338286) GLUCOSE (test code = 107 mg/dL 70-110 3460906906) CREATININE (test code = 0.60 mg/dL 0.60-1.25 3980500111) TOTAL BILI (test code = 1.0 mg/dL 0.1-1.4 5070635976) CALCIUM (test code = 9.4 mg/dL 8.6-10.6 4235231548) T PROTEIN (test code = 8.6 g/dL 6.3-8.2 H 5748860505) ALBUMIN (test code = 4.6 g/dL 3.5-5.0 4942097048) ALK PHOS (test code = 159 U/L 34-122 H 3523715996) ALTv (test code = 77 U/L 5-50 H 1742-6) AST(SGOT) (test code = 38 U/L 13-40 6713927158) eGFR (test code = mL/min/1.73m2 8880885517) ARPITA (test code = ARPITA) Association of [...] tests). Lab Interpretation Abnormal (test code = 89290-0) [facility] WITH [id number] 22:30:27 Test Item Value Reference Range Interpretation Comments WBC (test code = See_Comment H [Automated 0545-2) message] The system which generated this result transmit lester reference range : 4.20 - 10.70 10*3/?L. The reference range was not used to interpret this result as normal/abnormal . RBC (test code = See_Comment H [Automated 923-8) message] The system which generated this result [...] RDW-SD (test code = 48.0 fL 38.5-51.6 67972-1) RDW-CV (test code = 15.1 % 12.1-15.4 788-0) PLT (test code = See_Comment H [Automated 777-3) message] The system which generated this result transmit lester reference range : 150 - 328 10*3/ ?L. The reference range was not u sed to interpret th is result as normal/abnormal . MPV (test code = 10.3 fL 9.8-13.0 20282-0) NRBC/100 WBC (test See_Comment [Automat ed code = 3635238650) message] The system which generated this result transmit lester reference range : 0.0 - 10.0 /100 WBCs. The reference range was not used to interpret this result as normal/abnormal . NRBC x10^3 (test code <0.01 See_Comment [Auto mated = 0395219137) message] The system which generated this result transmit lester reference range : 10*3/?L. The reference range was not used to interpret this result as normal/abnormal . GRAN MAT (NEUT) % 79.9 % (test code = 770-8) IMM GRAN % (test code 0.50 % = 0594133363) LYMPH % (test code = 11.8 % 736-9) MONO % (test code = 6.6 % 5905-5) EOS % (test code = 0.9 % 713-8) BASO % (test code = 0.3 % 706-2) GRAN MAT x10^3(ANC) 10.70 10*3/uL 1.99-6.95 H (test code = 5532384662) IMM GRAN x10^3 (test 0.07 10*3/uL 0.00-0.06 H code = 3150875554) LYMPH x10^3 (test code 1.58 10*3/uL 1.09-3.23 = 731-0) MONO x10^3 (test code 0.89 10*3/uL 0.36-1.02 = 742-7) EOS x10^3 (test code = 0.12 10*3/uL 0.06-0.53 711-2) BASO x10^3 (test code 0.04 10*3/uL 0.01-0.09 = 704-7) Lab Interpretation Abnormal (test code = 91459-4) [facility]. METABOLIC PANEL ([id number])2021-06-07 23:02:15 Test Item Value Reference Range Interpretation Comments NA (test code = 137 mmol/L 135-145 8842503612) K (test code = 4.5 mmol/L 3.5-5.0 5022287315) CL (test code = 109 mmol/L 98-108 H 3681992224) CO2 TOTAL (test code = 22 mmol/L 23-31 L 1123733376) AGAP (test code = 2-16 1091895224) BUN (test code = 7 mg/dL 7-23 0477709791) GLUCOSE (test code = 87 mg/dL 70-110 2250781179) CREATININE (test code = 0.61 mg/dL 0.60-1.25 8922631602) TOTAL BILI (test code = 0.5 mg/dL 0.1-1.2 0810985013) CALCIUM (test code = 9.0 mg/dL 8.6-10.6 6028889338) T PROTEIN (test code = 6.9 g/dL 6.3-8.2 4649206069) ALBUMIN (test code = 3.5 g/dL 3.5-5.0 0896062487) ALK PHOS (test code = 112 U/L 34-122 2899596515) ALTv (test code = 35 U/L 5-50 1742-6) AST(SGOT) (test code = 21 U/L 13-40 7362848500) eGFR (test code = mL/min/1.73m2 0154706829) ARPITA (test code = ARPITA) Association of [...] tests). Lab Interpretation Abnormal (test code = 71850-6) [facility] WITH [id number] 22:51:57 Test Item Value Reference Range Interpretation Comments WBC (test code = See_Comment H [Automated 2264-2) message] The sy stem which generated this result transmitted reference range : 4.20 - 10.70 10*3/?L. The reference range was not used to interpret this result as normal/abnormal . RBC (test code = See_Comment [Automated 856-0) message] The sy stem which generated this [...] RDW-SD (test code = 42.4 fL 38.5-51.6 00926-2) RDW-CV (test code = 13.6 % 12.1-15.4 788-0) PLT (test code = See_Comment H [Automated 777-3) message] The sy stem which generated this result transmitted reference range : 150 - 328 10*3/ ?L. The reference r boubacar was not used to interpret this result as normal/abnormal . MPV (test code = 9.4 fL 9.8-13.0 L 54915-3) NRBC/100 WBC (test See_Comment [Automat ed code = 2772445518) message] The system which generated this result transmitted reference range : 0.0 - 10.0 /100 WBCs. The refer ence range was not u sed to interpret th is result as normal/abnormal . NRBC x10^3 (test code <0.01 See_Comment [Auto mated = 1932746724) message] The s ystem which generated this result transmitted reference range : 10*3/?L. The reference range was not used to interpret this result as normal/abnormal . GRAN MAT (NEUT) % 76.4 % (test code = 770-8) IMM GRAN % (test code 0.40 % = 4781919387) LYMPH % (test code = 16.3 % 736-9) MONO % (test code = 5.6 % 5905-5) EOS % (test code = 1.0 % 713-8) BASO % (test code = 0.3 % 706-2) GRAN MAT x10^3(ANC) 8.81 10*3/uL 1.99-6.95 H (test code = 2380537301) IMM GRAN x10^3 (test 0.05 10*3/uL 0.00-0.06 code = 1806565614) LYMPH x10^3 (test code 1.88 10*3/uL 1.09-3.23 = 731-0) MONO x10^3 (test code 0.64 10*3/uL 0.36-1.02 = 742-7) EOS x10^3 (test code = 0.12 10*3/uL 0.06-0.53 711-2) BASO x10^3 (test code 0.03 10*3/uL 0.01-0.09 = 704-7) Lab Interpretation Abnormal (test code = 95041-8) [facility] RAPID TESTING)2020-11-21 01:01:33 Test Item Value Reference Range Interpretation Comments SARS-CoV-2 Rapid ID NOW Not Detected Not Detected (test code = 41808-3) ARPITA (test code = ARPITA) ID NOW COVID-19 Assay is an isothermal nucleic acid amplification test intended for the qualitative detection of nucleic acid from SARS-CoV-2 viral RNA in nasopharyngeal ([employer]) specimens. It is used under Emergency [...] indicated. Lab Interpretation Normal (test code = 75383-0) [facility] ([id number])2020-11-21 01:00:33 Test Item Value Reference Range Interpretation Comments NA (test code = 140 mmol/L 135-145 9320743980) K (test code = 4.4 mmol/L 3.5-5.0 7166442274) CL (test code = 103 mmol/L 98-108 3694248008) CO2 TOTAL (test code = 28 mmol/L 23-31 1121822672) AGAP (test code = 2-16 2426429013) BUN (test code = 15 mg/dL 7-23 9794862862) GLUCOSE (test code = 85 mg/dL 70-110 8361523431) CREATININE (test code = 0.60 mg/dL 0.60-1.25 6336446942) TOTAL BILI (test code = 1.1 mg/dL 0.1-1.2 5288665295) CALCIUM (test code = 9.0 mg/dL 8.6-10.6 0040855162) T PROTEIN (test code = 7.8 g/dL 6.3-8.2 1415560025) ALBUMIN (test code = 4.0 g/dL 3.5-5.0 5860915489) ALK PHOS (test code = 166 U/L 34-122 H 4874410536) ALTv (test code = 42 U/L 5-50 1742-6) AST(SGOT) (test code = 32 U/L 13-40 2117041087) eGFR (test code = mL/min/1.73m2 8737355244) ARPITA (test code = ARPITA) Association of [...] tests). Lab Interpretation Abnormal (test code = 67416-0) [facility] 01:00:13 Test Item Value Reference Range Interpretation Comments LIPASE (test code = 4564124951) 57 U/L 0-220 Lab Interpretation (test code = Normal 22869-9) [facility] 00:51:55 Test Item Value Reference Range Interpretation Comments APPEARANCE (test code = Turbid Clear A 6604152717) COLOR (test code = Yellow Yellow 7182870569) PH (test code = 4.8-8.0 3100079234) SP GRAVITY (test code = 1.003-1.030 0311669877) GLU U QUAL (test code = Normal Normal 4470063966) BLOOD (test code = 1+ Negative A 3998774553) KETONES (test code = 20 mg/dL Negative A 1596186009) PROTEIN (test code = 100 mg/dL Negative A 2887-8) UROBILIN (test code = 2.0 mg/dL Normal A 3928095668) BILIRUBIN (test code = Negative Negative 7996331528) NITRITE (test code = Positive Negative A 6069784915) LEUK CHAD (test code = 250/uL Negative A 3527613771) RBC/HPF (test code = See_Comment H [Autom ated message] 1650488385) The system [employer] generated this result transmit lester reference range : 0 - 3 HPF. The refe rence range was not u sed to interpret th is result as normal/abnormal . WBC/HPF (test code = >182 See_Comment H [Autom ated message] [id number]) The system [employer] generated this result transmit lester reference range : 0 - 5 HPF. The refe rence range was not u sed to interpret th is result as normal/abnormal . BACTERIA (test code = Many Negative A 1396216188) MUCOUS (test code = Moderate Negative LPF A 5439060774) WBC CLUMPS (test code = See_Comment H [Au tomated message] [id number]) The system [employer] generated this result transmit lester reference range : <=1 HPF. The refere nce range was not u sed to interpret th is result as normal/abnormal . Lab Interpretation (test Abnormal code = 39924-3) [facility] WITH [id number] 00:46:14 Test Item Value Reference Range Interpretation [...] RDW-SD (test code = 47.6 fL 38.5-51.6 26833-5) RDW-CV (test code = 15.2 % 12.1-15.4 788-0) PLT (test code = See_Comment H [Automated 777-3) message] The sy stem which generated this result transmitted reference range : 150 - 328 10*3/ ?L. The reference r boubacar was not used to interpret this result as normal/abnormal . MPV (test code = 9.4 fL 9.8-13.0 L 63491-0) NRBC/100 WBC (test See_Comment [Automat ed code = [id number]) message] The system which generated this result transmitted reference range : 0.0 - 10.0 /100 WBCs. The refer ence range was not u sed to interpret th is result as normal/abnormal . NRBC x10^3 (test code <0.01 See_Comment [Auto mated = [id number]) message] The s ystem which generated this result transmitted reference range : 10*3/?L. The reference range was not used to interpret this result as normal/abnormal . GRAN MAT (NEUT) % 61.3 % (test code = 770-8) IMM GRAN % (test code 0.70 % = [id number]) LYMPH % (test code = 26.4 % 736-9) MONO % (test code = 9.9 % 5905-5) EOS % (test code = 1.3 % 713-8) BASO % (test code = 0.4 % 706-2) GRAN MAT x10^3(ANC) 6.39 10*3/uL 1.99-6.95 (test code = [id number]) IMM GRAN x10^3 (test 0.07 10*3/uL 0.00-0.06 H code = [id number]) LYMPH x10^3 (test code 2.75 10*3/uL 1.09-3.23 = 731-0) MONO x10^3 (test code 1.03 10*3/uL 0.36-1.02 H = 742-7) EOS x10^3 (test code = 0.14 10*3/uL 0.06-0.53 711-2) BASO x10^3 (test code 0.04 10*3/uL 0.01-0.09 = 704-7) Lab Interpretation Abnormal (test code = 84441-8) [facility] [id number] 13:03:00 Test Item Value Reference Range Interpretation Comments POC-GLUCOSE METER 140 mg/dL 70-110 H : TESTED A T [facility] 6720 (BEAKER) (test code = [facility], 1538) [address]: Vehicle Controls Engineer/Techni rose ID = [id number] for AARON COTTRELL POCT-GLUCOSE [id number] 09:15:00 Test Item Value Reference Range Interpretation Comments POC-GLUCOSE METER 142 mg/dL 70-110 H : TESTED A T [facility] 67[address] (BEAKER) (test code = [facility], 1538) 08169: Vehicle Controls Engineer/Techni rose ID = [id number] for AARON COTTRELL POCT-GLUCOSE [id number] 20:56:00 Test Item Value Reference Range Interpretation Comments POC-GLUCOSE METER 134 mg/dL 70-110 H : TESTED A T [facility] 6720 (BEAKER) (test code = [facility] Petit [facility], 1538) 08522: Vehicle Controls Engineer/Techni rose ID = [id number] for MG LANZA POCT-GLUCOSE [id number] 16:46:00 Test Item Value Reference Range Interpretation Comments POC-GLUCOSE METER 91 mg/dL 70-110 : TESTED A T [facility] 6720 (BEAKER) (test code = LIZBETH Petit [facility], 1538) 99388: Vehicle Controls Engineer/Techni rose ID = [id number] for AARON CABRAL POCT-GLUCOSE [id number] 12:19:00 Test Item Value Reference Range Interpretation Comments POC-GLUCOSE METER 237 mg/dL 70-110 H : TESTED A T [facility] 6720 (BEAKER) (test code = LIZB[facility] Petit [facility], 1538) 22940: Vehicle Controls Engineer/Techni rose ID = [id number] for AARON COTTRELL MR, EXTREMITY, LOWER, WITHOUT CONTRAST, [id number] 09:12:00FINAL REPORT MRI of the right and [...] MR evidence of osteomyelitis. Severe muscle atrophy. Signed:Philip Garza Verified Date/Time: 07/29/2019 09:12:01 Reading Location: [facility] C013 Ortho Consult Reading Room MR, EXTREMITY, LOWER, WITHOUT CONTRAST, [id number] 09:12:00FINAL REPORT MRI of the right and left hindfoot without intravenous contrast History: Osteomyelitis, diabetic foot Comparison: Radiograph dated July 21, 2019 Technique: Multiplanar multisequence MRI of the right and left hindfoot was performed without intravenous contrast usingthe hindfoot osteomyelitis protocol Findings: Right foot: Marked T1 and T2 hypointense soft tissue thickening is noted at the medial aspect of the right heel, likely to reflect scar tissue. There is also mild subcutaneous edema at the lateral aspect of the mid foot and forefoot, incompletely imaged. No discrete drainable fluid collection is identified. There is no marrow signal abnormality to suggestosteomyelitis. There is a small nonspecific joint effusion [...] signal abnormality is identified to indicate acute os teomyelitis. There is no significant joint effusion. There is severe atrophy of the foot and distal leg musculature. No significant tenosynovitis identified. IMPRESSION: Granulation/scar tissue at the medial aspect of the heel bilaterally. No MR evidence of osteomyelitis. Severe muscle atrophy. Signed: Philip Garza Verified Date/Time: 07/29/2019 09:12:01 Reading Location: [facility] C013X Ortho Consult Reading Room POCT-GLUCOSE [id number] 08:47:00 Test Item Value Reference Range Interpretation Comments POC-GLUCOSE METER 264 mg/dL 70-110 H : TESTED A T [facility] 6720 ([facility]) (test code = [facility], 153) 49366: Vehicle Controls Engineer/Techni rose ID = [id number] for AARON COTTRELL ISLET CELL AB [id number] 07:43:00 Test Item Value Reference Range Interpretation Comments ISLET CELL AB Refer to individual AUTOVERIFICATION (test Islet Cell Ab code = 2556) and/or Islet Cell Ab Titer results. POCT-GLUCOSE [id number] 21:27:00 Test Item Value Reference Range Interpretation Comments POC-GLUCOSE METER 130 mg/dL 70-110 H : [facility] (test code = [facility], 153) 12881: Vehicle Controls Engineer/Techni rose ID = [id number] for FERNIE APARICIO BLOOD [id number] 13:00:00 Test Item Value Reference Range Interpretation Comments CULTURE (BEAKER) (test No growth in 5 days code = 1095) BLOOD [id number] 13:00:00 Test Item Value Reference Range Interpretation Comments CULTURE (BEAKER) (test No growth in 5 days code = 1095) POCT-GLUCOSE [id number] 12:57:00 Test Item Value Reference Range Interpretation Comments POC-GLUCOSE METER 138 mg/dL 70-110 H : [facility] ([facility]) (test code = [facility], 153) 68923: Vehicle Controls Engineer/Techni rose ID = [id number] for WI LLIS, JUAN ANTONIO POCT-GLUCOSE [id number] 08:43:00 Test Item Value Reference Range Interpretation Comments POC-GLUCOSE METER 226 mg/dL 70-110 H : [facility] ([facility]) (test code = [facility], 153) 15258: Vehicle Controls Engineer/Techni rose ID = [id number] for [place] LLIS, JUAN ANTONIO POCT-GLUCOSE [id number] 21:11:00 Test Item Value Reference Range Interpretation Comments POC-GLUCOSE METER 254 mg/dL 70-110 H : Notified RN/MD: ([facility]) (test code = TESTED AT [facility] 6720 1538) [facility], 240[address]: Vehicle Controls Engineer/Techni rose ID = [id number] for FERNIE APARICIO POCT-GLUCOSE [id number] 21:02:00 Test Item Value Reference Range Interpretation Comments POC-GLUCOSE METER 177 mg/dL 70-110 H : TESTED A T [facility] 6720 [facility] (test code = [facility], 1538) 06748: Vehicle Controls Engineer/Techni rose ID = [id number] for WI LLIS, JUAN ANTONIO POCT-GLUCOSE [id number] 12:31:00 Test Item Value Reference Range Interpretation Comments POC-GLUCOSE METER 215 mg/dL 70-110 H : TESTED A T [facility] 6720 ([facility]) (test code = [facility], 153) 00814: Vehicle Controls Engineer/Techni rose ID = [id number] for [place] LLIS, JUAN ANTONIO WOUND CULTURE + GRAM [id number] 10:10:00 Test Item Value Reference Interpretation Comments Range CULTURE (AKER) PROTEUS MIRABILIS A 1+ Pro teus (test [...] 47) CULTURE (BEAKER) METHICILLIN A 1+ Methicil jocelyn (test code = 1095) RESISTANT resistant STAPHYLOCOCCUS [...] gram negative (BEAKER) (test code = rods 150169) GRAM STAIN RESULT 2+ gram positive (BEAKER) (test code = rods 722032) GRAM STAIN RESULT <1+ gram negative (BEAKER) (test code = coccobacilli 122021) GRAM STAIN RESULT 2+ gram positive (BEAKER) (test code = cocci in pairs 201917) POCT-GLUCOSE [id number] 08:52:00 Test Item Value Reference Range Interpretation Comments POC-GLUCOSE METER 209 mg/dL 70-110 H : TESTED A T [facility] 6720 (BEAKER) (test code = [facility] homedeco[facility], 1538) 61373: Vehicle Controls Engineer/Techni rose ID = [id number] for [place] ANGELINA, JUAN ANTONIO POCT-GLUCOSE [id number] 21:26:00 Test Item Value Reference Range Interpretation Comments POC-GLUCOSE METER 255 mg/dL 70-110 H : TESTED A T [facility] 6720 (BEAKER) (test code = [facility] [facility], 1538) 89776: Vehicle Controls Engineer/Techni rose ID = [id number] for MG LANZA POCT-GLUCOSE [id number] 17:34:00 Test Item Value Reference Range Interpretation Comments POC-GLUCOSE METER 227 mg/dL 70-110 H : TESTED A T [facility] 6720 (BEAKER) (test code = [facility], 153) 94699: Vehicle Controls Engineer/Techni rose ID = [id number] for CHAVEZ CIARA, LETI POCT-GLUCOSE [id number] 11:28:00 Test Item Value Reference Range Interpretation Comments POC-GLUCOSE METER 282 mg/dL 70-110 H : TESTED A T [facility] 6720 (BEAKER) (test code = [facility], 1538) 51924: Vehicle Controls Engineer/Techni rose ID = [id number] for CHAVEZ NNY, LETI POCT-GLUCOSE [id number] 08:19:00 Test Item Value Reference Range Interpretation Comments POC-GLUCOSE METER 329 mg/dL 70-110 H : TESTED A T [facility] 6720 ([facility]) (test code = [facility], 1538) 73559: Vehicle Controls Engineer/Techni rose ID = [id number] for AARON COTTRELL POCT-GLUCOSE [id number] 21:32:00 Test Item Value Reference Range Interpretation Comments POC-GLUCOSE METER 275 mg/dL 70-110 H : TESTED A T [facility] 6720 (BEAKER) (test code = [facility], 153) 27089: Vehicle Controls Engineer/Techni rose ID = [id number] for MG LANZA POCT-GLUCOSE [id number] 17:47:00 Test Item Value Reference Range Interpretation Comments POC-GLUCOSE METER 304 mg/dL 70-110 H : TESTED A T [facility] 6720 (BEAKER) (test code = [facility], 1538) 83656: Vehicle Controls Engineer/Techni rose ID = [id number] for MA RIN, ERIN URINE [id number] 15:21:00 Test Item Value Reference Range Interpretation Comments [facility] A >100,000 co l/mL (test code = 1095) Beta-hemo lytic streptococcus g roup B, by serologic al grouping CULTURE ([facility]) PROTEUS A 80-89,000 c ol/mL (test code [...] Tobramycin (test code R = 25) POCT-GLUCOSE [id number] 12:16:00 Test Item Value Reference Range Interpretation Comments POC-GLUCOSE METER 337 mg/dL 70-110 H : TESTED A T [facility] 6720 ([facility]) (test code = LI[facility] Petit [facility], 1538) 12987: Vehicle Controls Engineer/Techni rose ID = [id number] for ERIN ARIZMENDI BASIC METABOLIC [id number] 10:39:00 Test Item Value Reference Range Interpretation [...] S NOT APPLICABLE FOR DIALYSIS PATIEN TS. Vehicle Controls Engineer ID - JANET FPOCT-GLUCOSE [id number] 08:29:00 Test Item Value Reference Range Interpretation Comments POC-GLUCOSE METER 395 mg/dL 70-110 H : TESTED A T [facility] 6720 (BEAKER) (test code = [place], 1538) 23838: Vehicle Controls Engineer/Techni rose ID = [id number] for ERIN ARIZMENDI CBC W/PLT COUNT & AUTO [id number] 06:40:00 Test Item Value Reference Range Interpretation [...] PERCENT (BEAKER) (test code = 2801) POCT-GLUCOSE [id number] 19:55:00 Test Item Value Reference Range Interpretation Comments POC-GLUCOSE METER 369 mg/dL 70-110 H : TESTED A T [facility] 6720 (BEAKER) (test code = [facility], 1538) 94870: Vehicle Controls Engineer/Techni rose ID = [id number] for MG LANZA POCT-GLUCOSE [id number] 16:45:00 Test Item Value Reference Range Interpretation Comments POC-GLUCOSE METER 272 mg/dL 70-110 H : TESTED A T [facility] 6720 (BEAKER) (test code = [facility], 1538) 23456: Vehicle Controls Engineer/Techni rose ID = [id number] for FRIEDA PALOMINO POCT-GLUCOSE [id number] 11:40:00 Test Item Value Reference Range Interpretation Comments POC-GLUCOSE METER 277 mg/dL 70-110 H : TESTED A T [facility] 6720 (BEAKER) (test code = [facility], 153) 31104: Vehicle Controls Engineer/Techni rose ID = [id number] for FRIEDA PALOMINO BASIC METABOLIC [id number] 10:22:00 Test Item Value Reference Range Interpretation [...] S NOT APPLICABLE FOR DIALYSIS PATIEN TS. Vehicle Controls Engineer ID - NTPLIPID [id number] 10:17:00 Test Item Value Reference Range Interpretation [...] Optimal <100 Near Optimal 100-129 Borderline 130-159 [id number] Very High >=190 Vehicle Controls Engineer ID - NTPPOCT-GLUCOSE [id number] 08:28:00 Test Item Value Reference Range Interpretation Comments POC-GLUCOSE METER 388 mg/dL 70-110 H : [facility] (BEAKER) (test code = [place], 1538) 50819: Vehicle Controls Engineer/Techni rose ID = [id number] for AARON COTTRELL HEMOGLOBIN [id number] 07:54:00 Test Item Value Reference Range Interpretation Comments HEMOGLOBIN A1C (BEAKER) (test code = 10.4 % 4.3-6.1 H 368) CBC W/PLT COUNT & AUTO [id number] 05:56:00 Test Item Value Reference Range Interpretation [...] PERCENT (BEAKER) (test code = 2801) POCT-GLUCOSE [id number] 23:47:00 Test Item Value Reference Range Interpretation Comments POC-GLUCOSE METER 359 mg/dL 70-110 H : Notified RN/MD: (BEAKER) (test code = TESTED AT [facility] 2619 6139) [facility], 00673: Vehicle Controls Engineer/Techni rose ID = [id number] for LALITHA, MICHELINE ICE POCT-GLUCOSE [id number] 21:13:00 Test Item Value Reference Range Interpretation Comments POC-GLUCOSE METER 315 mg/dL 70-110 H : TESTED A T [facility] 6720 (BEAKER) (test code = [facility], 1538) 73430: Vehicle Controls Engineer/Techni rose ID = [id number] for Sm prince, Ana POCT-GLUCOSE [id number] 21:13:00 Test Item Value Reference Range Interpretation Comments POC-GLUCOSE METER 331 mg/dL 70-110 H : TESTED A T [facility] 6720 (BEAKER) (test code = [facility], 1538) 80891: Vehicle Controls Engineer/Techni rose ID = [id number] for RO JERRICA MCCLAIN POCT-GLUCOSE [id number] 10:30:00 Test Item Value Reference Range Interpretation Comments POC-GLUCOSE METER 341 mg/dL 70-110 H : TESTED A T [facility] 6720 (BEAKER) (test code = [facility], [facility]8) 14375: Vehicle Controls Engineer/Techni rose ID = [id number] for Sm ith, Ana CBC W/PLT COUNT & AUTO [id number] 08:48:00 Test Item Value Reference Range Interpretation [...] (BEAKER) (test code = Present 1371) HEMOGLOBIN [id number] 06:39:00 Test Item Value Reference Range Interpretation Comments HEMOGLOBIN A1C (BEAKER) (test code = 10.5 % 4.3-6.1 H 368) LIPID [id number] 04:57:00 Test Item Value Reference Range Interpretation [...] Optimal <100 Near Optimal 100-129 Borderline 130-159 Odjt133-142 Very High >=190 Specimen moderately lipemic BASIC METABOLIC [id number] 04:56:00 Test Item Value Reference Range Interpretation [...] NOT APPLICABLE FOR DIALYSIS PATIEN TS. 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 COMPARISON STUDY: None available. FINDINGS: Sonographic assessment of the abdomen was performed assessing for fluid in the region of the patient's shunts. No fluid collections are seen. However, the study is limited by the patient's body habitus. CT scan would be more sensitive. Signed: Óscar Miles MDReport Verified Date/Time: 07/22/2019 19:54:10 Reading Location: [address] Consult Reading Room POCT-GLUCOSE [id number] 19:34:00 Test Item Value Reference Range Interpretation Comments POC-GLUCOSE METER 474 mg/dL 70-110 HH : Notified RN/MD: (BEAKER) (test code = TESTED AT [facility] 6700 5714) [facility], [address]: Vehicle Controls Engineer/Techni rose ID = [id number] for MARILYNN MAO URINALYSIS W/ REFLEX URINE [id number] 17:48:00 Test Item Value Reference Range Interpretation [...] = 2795) CBC W/PLT COUNT & AUTO [id number] 17:38:00 Test Item Value Reference Range Interpretation [...] 3438) Received comment: User comments: Slide comments:POCT-GLUCOSE [id number] 16:27:00 Test Item Value Reference Range Interpretation Comments POC-GLUCOSE METER 424 mg/dL 70-110 HH : Notified RN/MD: (FELICIANO) (test code = TESTED AT [facility] 6795 0608) [facility], [address]: Vehicle Controls Engineer/Techni rose ID = [id number] for AK INSONU, MARILYNN CT, BRAIN, WITHOUT [id number] 15:31:00FINAL REPORT CT, BRAIN, WITHOUT CONTRAST CLINICAL [...] MDReport Verified Date/Time: 07/22/2019 15:31:08 Reading Location: [address] Neuro Reading Room RAD, SHUNT [id number] 15:13:00Reason for exam:->concern for VPS malfunctionFINAL REPORT [...] of the catheter appear contiguous. Signed: Jacob Plasencia Verified Date/Time: 07/22/2019 15:13:54 Reading Location: [facility] Reading Room POCT-GLUCOSE [id number] 11:38:00 Test Item Value Reference Range Interpretation Comments POC-GLUCOSE METER 394 mg/dL 70-110 H : TESTED A T [facility] 6720 (BEAKER) (test code = [facility]ZB[facility] Petit [facility], 1538) 57111: Vehicle Controls Engineer/Techni rose ID = [id number] for MARILYNN MAO HEMOGLOBIN [id number] 09:15:00 Test Item Value Reference Range Interpretation Comments HEMOGLOBIN A1C (BEAKER) (test code = 10.4 % 4.3-6.1 H 368) TSH/FREE T4 IF [id number] 07:54:00 Test Item Value Reference Range Interpretation Comments THYROID STIMULATING HORMONE 1.40 uIU/mL 0.35-4.94 (BEAKER) (test code = 772) POCT-GLUCOSE [id number] 07:48:00 Test Item Value Reference Range Interpretation Comments POC-GLUCOSE METER > mg/dL 70-110 HH : Notified RN/MD: TESTED (BEAKER) (test code = AT [facility] 6720 [facility] 1538) [facility], 770 30: Vehicle Controls Engineer/Techni rose ID = [id number] for MARILYNN SMITH BASIC METABOLIC [id number] 07:44:00 Test Item Value Reference Range Interpretation [...] NOT APPLICABLE FOR DIALYSIS PATIEN TS. LIPID [id number] 07:34:00 Test Item Value Reference Range Interpretation [...] Optimal <100 Near Optimal 100-129 Borderline 130-159 [id number] Very High >=190POCT-GLUCOSE [id number] 00:49:00 Test Item Value Reference Range Interpretation Comments POC-GLUCOSE METER 399 mg/dL 70-110 H : TESTED A T [facility] 6720 (FELICIANO) (test code = [facility] Pet[facility], 1538) 87743: Vehicle Controls Engineer/Techni rose ID = [id number] for CHERYLE LINDA RAD, FOOT, 2 VIEWS, [id number] 22:28:00Reason for exam:->osteomyletitis FINAL REPORT TECHNIQUE: Two [...] osteomyelitis, recommend MRI with contrast. Signed: Andrew Cardenas MDReport Verified Date/Time: 07/21/2019 22:28:25 Reading Location: [address] Consult Reading Room RAD, FOOT, 2 VIEWS, [id number] 22:28:00Reason for exam:->osteomyletitsFINAL REPORT TECHNIQUE: Two views [...] osteomyelitis, recommend MRI with contrast. Signed: Andrew Cardenas MDReport Verified Date/Time: 07/21/2019 22:28:25 Reading Location: [facility] C013W Consult Reading Room Electronically signed by: ANDREW CARDENAS DO on07/21/2019 10:28 PMPOCT-GLUCOSE [id number] 21:04:00 Test Item Value Reference Range Interpretation Comments POC-GLUCOSE METER 430 mg/dL 70-110 HH : Notified RN/MD: (FELICIANO) (test code = TESTED AT [facility] 6720 1538) [facility], [address]: Vehicle Controls Engineer/Techni rose ID = [id number] for ALBERTO OLIVER ERTAPENEM:SUSC:PT:ISOLATE:ORDQN:[id number] 16:48:00 Test Item Value Reference Range Interpretation Comments Culture: Urine (test >100,000 CFU/mL Proteus code = Culture: mirabilis 10,000 - Urine) 50,000 CFU/mL Skin [facility]:PT:ISOLATE:ORDQN:[id number] 16:48:00 Test Item Value Reference Range Interpretation Comments Proteus mirabilis (test Proteus mirabilis code = Proteus mirabilis) [facility] AND [id number] 16:48:00 Test Item Value Reference Range Interpretation Comments UA Nitrite (test code Negative (05/22/18 10:48 = UA Nitrite) AM) [facility] [id number] 16:48:00 Test Item Value Reference Range Interpretation Comments UA Bili (test code = Negative *NA*(05/22/18 UA Bili) 10:48 AM) [facility] AND [id number] 16:48:00 Test Item Value Reference Range Interpretation Comments UA Ketones (test code Negative *NA*(05/22/18 = UA Ketones) 10:48 AM) [facility] AND [id number] 16:48:00 Test Item Value Reference Range Interpretation Comments UA Blood (test code = Trace *ABN*(05/22/18 UA Blood) 10:48 AM) [facility] AND [id number] 16:48:00 Test Item Value Reference Range Interpretation Comments UA Urobilinogen (test code = UA 0.2 0.1-1.0 Urobilinogen) [facility] AND [id number] 16:48:00 Test Item Value Reference Range Interpretation Comments UA Leuk Est (test code Large *ABN*(05/22/18 = UA Leuk Est) 10:48 AM) [facility] AND [id number] 16:48:00 Test Item Value Reference Range Interpretation Comments UA Protein (test code Negative (05/22/18 10:48 = UA Protein) AM) [facility] AND [id number] 16:48:00 Test Item Value Reference Range Interpretation Comments UA Glucose (test code Negative (05/22/18 10:48 = UA Glucose) AM) [facility] AND [id number] 16:48:00 Test Item Value Reference Range Interpretation Comments UA pH (test code = UA pH) 7.0 1 5.0-8.0 [facility] AND [id number] 16:48:00 Test Item Value Reference Range Interpretation Comments UA Spec Grav (test code = UA Spec 1.015 1 Grav) [facility] AND [id number] 16:48:00 Test Item Value Reference Range Interpretation Comments UA Color (test code = Yellow *NA*(05/22/18 UA Color) 10:48 AM) [facility] AND [id number] 16:48:00 Test Item Value Reference Range Interpretation Comments UA Turbidity (test code = Clear (05/22/18 10:48 UA Turbidity) AM) [facility] AND [id number] 16:48:00 Test Item Value Reference Range Interpretation Comments UA Mucus (test code = UA Mucus) Few /LPF [facility] AND [id number] 16:48:00 Test Item Value Reference Range Interpretation Comments UA Bacteria (test code = UA Few /HPF Bacteria) [facility] AND [id number] 16:48:00 Test Item Value Reference Range Interpretation Comments UA RBC (test code = 0-2 /HPF See_Comment [Automa lester message] The UA RBC) system which ge nerated this result tra nsmitted reference range : <=2. The reference range was not used to interpr et this result as dany l/abnormal. [facility] AND [id number] 16:48:00 Test Item Value Reference Range Interpretation Comments UA Sq Epi (test code = None Seen (05/22/18 UA Sq Epi) 10:48 AM) [facility] AND [id number] 16:48:00 Test Item Value Reference Range Interpretation Comments UA WBC (test code = UA WBC) 51-100 /HPF [facility]SUSC:PT:ISOLATE:ORDQN:[id number] 16:48:00 Test Item Value Reference Range Interpretation Comments Culture: Urine (test >100,000 CFU/mL Proteus code = Culture: mirabilis 10,000 - Urine) 50,000 CFU/mL Skin Marilee [facility]EM:SUSC:PT:ISOLATE:ORDQN:[id number] 16:48:00 Test Item Value Reference Range Interpretation Comments Proteus mirabilis (test Proteus mirabilis code = Proteus mirabilis) [facility] AND [id number] 16:48:00 Test Item Value Reference Range Interpretation Comments UA Nitrite (test code Negative (05/22/18 10:48 = UA Nitrite) AM) [facility] AND [id number] 16:48:00 Test Item Value Reference Range Interpretation Comments UA Bili (test code = Negative *NA*(05/22/18 UA Bili) 10:48 AM) [facility] AND [id number] 16:48:00 Test Item Value Reference Range Interpretation Comments UA Ketones (test code Negative *NA*(05/22/18 = UA Ketones) 10:48 AM) [facility] AND [id number] 16:48:00 Test Item Value Reference Range Interpretation Comments UA Blood (test code = Trace *ABN*(05/22/18 UA Blood) 10:48 AM) [facility] AND [id number] 16:48:00 Test Item Value Reference Range Interpretation Comments UA Urobilinogen (test code = UA 0.2 0.1-1.0 Urobilinogen) [facility] AND [id number] 16:48:00 Test Item Value Reference Range Interpretation Comments UA Leuk Est (test code Large *ABN*(05/22/18 = UA Leuk Est) 10:48 AM) [facility] AND [id number] 16:48:00 Test Item Value Reference Range Interpretation Comments UA Protein (test code Negative (05/22/18 10:48 = UA Protein) AM) [facility] AND [id number] 16:48:00 Test Item Value Reference Range Interpretation Comments UA Glucose (test code Negative (05/22/18 10:48 = UA Glucose) AM) [facility] AND [id number] 16:48:00 Test Item Value Reference Range Interpretation Comments UA pH (test code = UA pH) 7.0 1 5.0-8.0 [facility] AND [id number] 16:48:00 Test Item Value Reference Range Interpretation Comments UA Spec Grav (test code = UA Spec 1.015 1 Grav) [facility] AND [id number] 16:48:00 Test Item Value Reference Range Interpretation Comments UA Color (test code = Yellow *NA*(05/22/18 UA Color) 10:48 AM) [facility] AND [id number] 16:48:00 Test Item Value Reference Range Interpretation Comments UA Turbidity (test code = Clear (05/22/18 10:48 UA Turbidity) AM) [facility] AND [id number] 16:48:00 Test Item Value Reference Range Interpretation Comments UA Mucus (test code = UA Mucus) Few /LPF [facility] AND [id number] 16:48:00 Test Item Value Reference Range Interpretation Comments UA Bacteria (test code = UA Few /HPF Bacteria) [facility] AND [id number] 16:48:00 Test Item Value Reference Range Interpretation Comments UA RBC (test code = 0-2 /HPF See_Comment [Automa lester message] The UA RBC) system which ge nerated this result tra nsmitted reference range : <=2. The reference range was not used to interpr et this result as dany l/abnormal. [facility] AND [id number] 16:48:00 Test Item Value Reference Range Interpretation Comments UA Sq Epi (test code = None Seen (05/22/18 UA Sq Epi) 10:48 AM) [facility] [id number] 16:48:00 Test Item Value Reference Range Interpretation Comments UA WBC (test code = UA WBC) 51-100 /HPF [facility]:ISOLATE:ORDQN:[id number] 16:48:00 Test Item Value Reference Range Interpretation Comments Culture: Urine (test >100,000 CFU/mL Proteus code = Culture: mirabilis 10,000 - Urine) 50,000 CFU/mL Skin [facility]USC:PT:ISOLATE:ORDQN:[id number] 16:48:00 Test Item Value Reference Range Interpretation Comments Proteus mirabilis (test Proteus mirabilis code = Proteus mirabilis) [facility] AND [id number] 16:48:00 Test Item Value Reference Range Interpretation Comments UA Nitrite (test code Negative (05/22/18 10:48 = UA Nitrite) AM) [facility] AND [id number] 16:48:00 Test Item Value Reference Range Interpretation Comments UA Bili (test code = Negative *NA*(05/22/18 UA Bili) 10:48 AM) [facility] AND [id number] 16:48:00 Test Item Value Reference Range Interpretation Comments UA Ketones (test code Negative *NA*(05/22/18 = UA Ketones) 10:48 AM) [facility] AND [id number] 16:48:00 Test Item Value Reference Range Interpretation Comments UA Blood (test code = Trace *ABN*(05/22/18 UA Blood) 10:48 AM) [facility] AND [id number] 16:48:00 Test Item Value Reference Range Interpretation Comments UA Urobilinogen (test code = UA 0.2 0.1-1.0 Urobilinogen) [facility] AND [id number] 16:48:00 Test Item Value Reference Range Interpretation Comments UA Leuk Est (test code Large *ABN*(05/22/18 = UA Leuk Est) 10:48 AM) [facility] AND [id number] 16:48:00 Test Item Value Reference Range Interpretation Comments UA Protein (test code Negative (05/22/18 10:48 = UA Protein) AM) [facility] AND [id number] 16:48:00 Test Item Value Reference Range Interpretation Comments UA Glucose (test code Negative (05/22/18 10:48 = UA Glucose) AM) [facility] AND [id number] 16:48:00 Test Item Value Reference Range Interpretation Comments UA pH (test code = UA pH) 7.0 1 5.0-8.0 [facility] AND [id number] 16:48:00 Test Item Value Reference Range Interpretation Comments UA Spec Grav (test code = UA Spec 1.015 1 Grav) [facility] AND [id number] 16:48:00 Test Item Value Reference Range Interpretation Comments UA Color (test code = Yellow *NA*(05/22/18 UA Color) 10:48 AM) [facility] AND [id number] 16:48:00 Test Item Value Reference Range Interpretation Comments UA Turbidity (test code = Clear (05/22/18 10:48 UA Turbidity) AM) [facility] AND [id number] 16:48:00 Test Item Value Reference Range Interpretation Comments UA Mucus (test code = UA Mucus) Few /LPF [facility] AND [id number] 16:48:00 Test Item Value Reference Range Interpretation Comments UA Bacteria (test code = UA Few /HPF Bacteria) [facility] AND [id number] 16:48:00 Test Item Value Reference Range Interpretation Comments UA RBC (test code = 0-2 /HPF See_Comment [Automa lester message] The UA RBC) system which ge nerated this result tra nsmitted reference range : <=2. The reference range was not used to interpr et this result as dany l/abnormal. [facility] AND [id number] 16:48:00 Test Item Value Reference Range Interpretation Comments UA Sq Epi (test code = None Seen (05/22/18 UA Sq Epi) 10:48 AM) [facility] AND [id number] 16:48:00 Test Item Value Reference Range Interpretation Comments UA WBC (test code = UA WBC) 51-100 /HPF [id number] 11:57:00 Test Item Value Reference Range Interpretation Comments Antibody Scrn (test Negative (05/22/18 5:57 code = Antibody Scrn) AM) [facility] [id number] 11:57:00 Test Item Value Reference Range Interpretation Comments ABO/Rh (test code = ABO/Rh) AB POS [id number] 11:57:00 Test Item Value Reference Range Interpretation Comments PTT (test code = PTT) 33.4 s 22.9-35.8 [facility] CenterZucgordWMMLMHVRBX9535-03-11 11:57:00 Test Item Value Reference Range Interpretation Comments PT (test code = PT) 13.7 s 12.0-14.7 [facility] Cent[id number] 11:57:00 Test Item Value Reference Range Interpretation Comments INR (test code = INR) 1.05 1 0.85-1.17 [facility] [id number] 11:57:00 Test Item Value Reference Range Interpretation Comments Antibody Scrn (test Negative (05/22/18 5:57 code = Antibody Scrn) AM) [facility] [id number] 11:57:00 Test Item Value Reference Range Interpretation Comments ABO/Rh (test code = ABO/Rh) AB POS [facility] [id number] 11:57:00 Test Item Value Reference Range Interpretation Comments PTT (test code = PTT) 33.4 s 22.9-35.8 [facility] CenterNvdunnwOULBHTFOCE2299-52-50 11:57:00 Test Item Value Reference Range Interpretation Comments PT (test code = PT) 13.7 s 12.0-14.7 [facility] CenterHbyqjfiGHIRYDZGCK7384-02-34 11:57:00 Test Item Value Reference Range Interpretation Comments INR (test code = INR) 1.05 1 0.85-1.17 [facility] [id number] 11:57:00 Test Item Value Reference Range Interpretation Comments Antibody Scrn (test Negative (05/22/18 5:57 code = Antibody Scrn) AM) [facility] [id number] 11:57:00 Test Item Value Reference Range Interpretation Comments ABO/Rh (test code = ABO/Rh) AB POS [facility] CenterAxzrtzdGAANIUVWJW1103-30-00 11:57:00 Test Item Value Reference Range Interpretation Comments PTT (test code = PTT) 33.4 s 22.9-35.8 [facility] CenterDwbyvdpEBDGYLFEWF1236-11-83 11:57:00 Test Item Value Reference Range Interpretation Comments PT (test code = PT) 13.7 s 12.0-14.7 [facility] CenterCgoxfjoDGENCUEWHU6889-63-51 11:57:00 Test Item Value Reference Range Interpretation Comments INR (test code = INR) 1.05 1 0.85-1.17 [facility]2018-11-08 10:50:01 Test Item Value Reference Range Interpretation Comments eGFR (test code = eGFR) 133 [facility]2018-11-08 10:50:01 Test Item Value Reference Range Interpretation Comments Calcium Lvl (test code = Calcium Lvl) 9.4 8.5-10.5 [facility]2018-11-08 10:50:01 Test Item Value Reference Range Interpretation Comments CO2 (test code = CO2) 28 24-32 [facility]2018-11-08 10:50:01 Test Item Value Reference Range Interpretation Comments BUN (test code = BUN) 14 7-22 [facility]2018-11-08 10:50:01 Test Item Value Reference Range Interpretation Comments Glucose Lvl (test code = Glucose Lvl) 89 70-99 [facility]2018-11-08 10:50:01 Test Item Value Reference Range Interpretation Comments Chloride Lvl (test code = Chloride Lvl) 104 95-109 [facility]2018-11-08 10:50:01 Test Item Value Reference Range Interpretation Comments Potassium Lvl (test code = Potassium 4.2 3.5-5.1 Lvl) [facility]2018-11-08 10:50:01 Test Item Value Reference Range Interpretation Comments Sodium Lvl (test code = Sodium Lvl) 137 135-145 [facility]2018-11-08 10:50:01 Test Item Value Reference Range Interpretation Comments Creatinine Lvl (test code = Creatinine 0.85 0.50-1.40 Lvl) [facility]2018-11-08 10:50:01 Test Item Value Reference Range Interpretation Comments AGAP (test code = AGAP) 9.2 10.0-20.0 [facility] Cent[id number] 10:50:01 Test Item Value Reference Range Interpretation Comments ACT (TEG) Rapid (test code = ACT (TEG) 136 s 86-118 Rapid) [facility] CenterWvtluhsNKPAXKMHVE9219-45-88 10:50:01 Test Item Value Reference Range Interpretation Comments Split Point Rapid (test code = Split 0.6 min Point Rapid) [facility] CenterXnrqrvaHIASJSTEAV4826-67-84 10:50:01 Test Item Value Reference Range Interpretation Comments R-time Rapid (test code = R-time 0.9 min 0.4-0.7 Rapid) [facility] CenterEgkeawfJBONRXVTXX5412-89-22 10:50:01 Test Item Value Reference Range Interpretation Comments K-time Rapid (test code = K-time 1.4 min 0.6-2.3 Rapid) [facility] CenterRdgtjwiWQKXLGKRUP8496-11-53 10:50:01 Test Item Value Reference Range Interpretation Comments Angle Rapid (test code = Angle 71 degrees 64-80 Rapid) [facility] CenterSgtvjpuNZMVEQBISF1982-32-30 10:50:01 Test Item Value Reference Range Interpretation Comments G-value Rapid (test code = G-value 12.7 5.0-11.6 Rapid) [facility] CenterKrlfaodJHADYNLOLN0246-10-26 10:50:01 Test Item Value Reference Range Interpretation Comments Max Amplitude Rapid (test code = Max 72 mm 52-71 Amplitude Rapid) [facility] CenterQzawxkrMLCGEZOOPV4438-76-19 10:50:01 Test Item Value Reference Range Interpretation Comments Estimated % Lysis Rapid 0.1 See_Comment [Au tomated message] The (test code = Estimated syste m which generated % Lysis Rapid) this result t ransmitted reference range : <=7.5. The reference r boubacar was not used to int erpret this result as normal/abnormal . [facility] CenterZqxdllvMEGDBQPIAF8871-18-41 10:50:01 Test Item Value Reference Range Interpretation Comments Platelet (test code = Platelet) 367 133-450 [facility] CenterXpriwtkSAQMBUTPUY0107-90-67 10:50:01 Test Item Value Reference Range Interpretation Comments MPV (test code = MPV) 7.8 7.4-10.4 [facility] CenterUgttmjoTCDGGVZSCI4675-32-89 10:50:01 Test Item Value Reference Range Interpretation Comments MCH (test code = MCH) 27.4 pg 27.0-31.0 [facility] CenterKxfhgjxSZCPWFUIOB9552-83-61 10:50:01 Test Item Value Reference Range Interpretation Comments MCV (test code = MCV) 80.7 80.0-94.0 [facility] CenterRqatlenAIXHFQPNVZ3221-88-79 10:50:01 Test Item Value Reference Range Interpretation Comments MCHC (test code = MCHC) 34.0 32.0-36.0 [facility] CenterLumqhfyPMPKWQFJNU8230-85-05 10:50:01 Test Item Value Reference Range Interpretation Comments RDW (test code = RDW) 18.9 11.5-14.5 [facility] CenterGarppffUJPLCSAJZQ2403-84-32 10:50:01 Test Item Value Reference Range Interpretation Comments Hct (test code = Hct) 43.3 42.0-54.0 [facility] CenterQmfzhyqIBPYFMAZFG5605-33-77 10:50:01 Test Item Value Reference Range Interpretation Comments WBC (test code = WBC) 9.3 3.7-10.4 [facility] CenterFheuqcpUFIELHGAWR7633-89-82 10:50:01 Test Item Value Reference Range Interpretation Comments Hgb (test code = Hgb) 14.7 14.0-18.0 [facility] CenterBzzkizkROXJVKLZBI3829-40-19 10:50:01 Test Item Value Reference Range Interpretation Comments RBC (test code = RBC) 5.36 4.70-6.10 [facility] CenterLudvqcsFJBJTUKHXU4156-45-27 10:50:01 Test Item Value Reference Range Interpretation Comments Eosinophils # (test code 0.2 See_Comment [A utomated message] The = Eosinophils #) system whic h generated this result tra nsmitted reference range : <=0.5. The reference r boubacar was not used to int erpret this result as normal/abnormal . [facility] CenterLzncmcxCGQHLADDOC0042-76-76 10:50:01 Test Item Value Reference Range Interpretation Comments Basophils # (test code 0.1 See_Comment [Aut omated message] The = Basophils #) system which generated this result tra nsmitted reference range : <=0.2. The reference r boubacar was not used to int erpret this result as normal/abnormal . [facility] CenterHfyazibMCHXETJFXJ9482-61-55 10:50:01 Test Item Value Reference Range Interpretation Comments Lymphocytes # (test code = Lymphocytes 1.8 1.0-5.5 #) [facility] CenterLsoacocYWAHNUHZWI8595-10-73 10:50:01 Test Item Value Reference Range Interpretation Comments Monocytes # (test code 0.9 See_Comment [Aut omated message] The = Monocytes #) system which generated this result tra nsmitted reference range : <=0.8. The reference r boubacar was not used to int erpret this result as normal/abnormal . [facility] CenterEnbjvdkOUZYWAFQSV7637-91-79 10:50:01 Test Item Value Reference Range Interpretation Comments Neutrophils # (test code = Neutrophils 6.3 1.5-8.1 #) [facility] CenterYqipoolWRUBLYWFVL2701-71-81 10:50:01 Test Item Value Reference Range Interpretation Comments Eosinophils (test code = 2.0 See_Comment [A utomated message] The Eosinophils) system which ge nerated this result tra nsmitted reference range : <=4.0. The reference r boubacar was not used to int erpret this result as normal/abnormal . [facility] CenterAshvgadRECPFJHYPY2579-80-84 10:50:01 Test Item Value Reference Range Interpretation Comments Segs (test code = Segs) 67.4 45.0-75.0 [facility] CenterPmwvzpdOSAJQIIRKO8063-10-07 10:50:01 Test Item Value Reference Range Interpretation Comments Lymphocytes (test code = Lymphocytes) 19.9 20.0-40.0 [facility] CenterIplrqfzLPSAJTIJCU5340-49-19 10:50:01 Test Item Value Reference Range Interpretation Comments Basophils (test code = 1.0 See_Comment [Aut omated message] The Basophils) system which ge nerated this result tra nsmitted reference range : <=1.0. The reference r boubacar was not used to int erpret this result as normal/abnormal . [facility] CenterKwlvycuOAVTWNPNZI5500-49-73 10:50:01 Test Item Value Reference Range Interpretation Comments Monocytes (test code = Monocytes) 9.7 2.0-12.0 [facility]2018-11-08 10:50:01 Test Item Value Reference Range Interpretation Comments eGFR (test code = eGFR) 133 [facility]2018-11-08 10:50:01 Test Item Value Reference Range Interpretation Comments Calcium Lvl (test code = Calcium Lvl) 9.4 8.5-10.5 [facility]2018-11-08 10:50:01 Test Item Value Reference Range Interpretation Comments CO2 (test code = CO2) 28 24-32 [facility]2018-11-08 10:50:01 Test Item Value Reference Range Interpretation Comments BUN (test code = BUN) 14 7-22 [facility]2018-11-08 10:50:01 Test Item Value Reference Range Interpretation Comments Glucose Lvl (test code = Glucose Lvl) 89 70-99 [facility]2018-11-08 10:50:01 Test Item Value Reference Range Interpretation Comments Chloride Lvl (test code = Chloride Lvl) 104 95-109 [facility]2018-11-08 10:50:01 Test Item Value Reference Range Interpretation Comments Potassium Lvl (test code = Potassium 4.2 3.5-5.1 Lvl) [facility]2018-11-08 10:50:01 Test Item Value Reference Range Interpretation Comments Sodium Lvl (test code = Sodium Lvl) 137 135-145 [facility]2018-11-08 10:50:01 Test Item Value Reference Range Interpretation Comments Creatinine Lvl (test code = Creatinine 0.85 0.50-1.40 Lvl) [facility]2018-11-08 10:50:01 Test Item Value Reference Range Interpretation Comments AGAP (test code = AGAP) 9.2 10.0-20.0 [facility] CenterDoewichBXUYWGEXYQ5367-72-97 10:50:01 Test Item Value Reference Range Interpretation Comments ACT (TEG) Rapid (test code = ACT (TEG) 136 s 86-118 Rapid) [facility] CenterYdgauawQXOODJCMCM9410-48-37 10:50:01 Test Item Value Reference Range Interpretation Comments Split Point Rapid (test code = Split 0.6 min Point Rapid) [facility] CenterAfbtjxgEUNAEXSJBV0870-07-54 10:50:01 Test Item Value Reference Range Interpretation Comments R-time Rapid (test code = R-time 0.9 min 0.4-0.7 Rapid) [facility] CenterQudsrznWYUKFXJOVT2007-47-60 10:50:01 Test Item Value Reference Range Interpretation Comments K-time Rapid (test code = K-time 1.4 min 0.6-2.3 Rapid) [facility] CenterAjcmxixVKNGMDSPOK1848-03-59 10:50:01 Test Item Value Reference Range Interpretation Comments Angle Rapid (test code = Angle 71 degrees 64-80 Rapid) [facility] CenterEucanjdZAUSDRWUXW1673-39-46 10:50:01 Test Item Value Reference Range Interpretation Comments G-value Rapid (test code = G-value 12.7 5.0-11.6 Rapid) [facility] CenterHunkqcqQRQQLDJYKP1989-83-25 10:50:01 Test Item Value Reference Range Interpretation Comments Max Amplitude Rapid (test code = Max 72 mm 52-71 Amplitude Rapid) [facility] CenterHxsqkkcTURRWOXBMV7701-66-85 10:50:01 Test Item Value Reference Range Interpretation Comments Estimated % Lysis Rapid 0.1 See_Comment [Au tomated message] The (test code = Estimated syste m which generated % Lysis Rapid) this result t ransmitted reference range : <=7.5. The reference r boubacar was not used to int erpret this result as normal/abnormal . [facility] CenterUvekeqcLSYCEQPCGP8942-36-63 10:50:01 Test Item Value Reference Range Interpretation Comments Platelet (test code = Platelet) 367 133-450 [facility] CenterEmdaoqkQEVSRJKKHW3762-23-69 10:50:01 Test Item Value Reference Range Interpretation Comments MPV (test code = MPV) 7.8 7.4-10.4 [facility] CenterWssyysnZZHZASQMGZ5313-63-85 10:50:01 Test Item Value Reference Range Interpretation Comments MCH (test code = MCH) 27.4 pg 27.0-31.0 [facility] CenterOczwlcsCJDVLZYBJK8605-57-10 10:50:01 Test Item Value Reference Range Interpretation Comments MCV (test code = MCV) 80.7 80.0-94.0 [facility] CenterJwzvutbHXADUFIBOB9699-67-38 10:50:01 Test Item Value Reference Range Interpretation Comments MCHC (test code = MCHC) 34.0 32.0-36.0 [facility] CenterShdnqzbSVZUFVLIOH3140-50-52 10:50:01 Test Item Value Reference Range Interpretation Comments RDW (test code = RDW) 18.9 11.5-14.5 [facility] CenterAwpuzzmDJGOMYRMXY2241-95-82 10:50:01 Test Item Value Reference Range Interpretation Comments Hct (test code = Hct) 43.3 42.0-54.0 [facility] CenterAshmtncERTEHGVOBX7150-02-12 10:50:01 Test Item Value Reference Range Interpretation Comments WBC (test code = WBC) 9.3 3.7-10.4 [facility] CenterVujkxhyVMTTPPVCLV1653-70-33 10:50:01 Test Item Value Reference Range Interpretation Comments Hgb (test code = Hgb) 14.7 14.0-18.0 [facility] CenterUhaxgsyMELNKYQLUX7682-57-74 10:50:01 Test Item Value Reference Range Interpretation Comments RBC (test code = RBC) 5.36 4.70-6.10 [facility] CenterDwksdefKCMQYPABDU8183-96-82 10:50:01 Test Item Value Reference Range Interpretation Comments Eosinophils # (test code 0.2 See_Comment [A utomated message] The = Eosinophils #) system whic h generated this result tra nsmitted reference range : <=0.5. The reference r boubacar was not used to int erpret this result as normal/abnormal . [facility] CenterLhrhvomKLBPXIMPUD6944-25-93 10:50:01 Test Item Value Reference Range Interpretation Comments Basophils # (test code 0.1 See_Comment [Aut omated message] The = Basophils #) system which generated this result tra nsmitted reference range : <=0.2. The reference r boubacar was not used to int erpret this result as normal/abnormal . [facility] CenterWuocwbsNQGFKLQPGV4627-67-30 10:50:01 Test Item Value Reference Range Interpretation Comments Lymphocytes # (test code = Lymphocytes 1.8 1.0-5.5 #) [facility] CenterNtrqsxtLLIULEWALB4062-96-83 10:50:01 Test Item Value Reference Range Interpretation Comments Monocytes # (test code 0.9 See_Comment [Aut omated message] The = Monocytes #) system which generated this result tra nsmitted reference range : <=0.8. The reference r boubacar was not used to int erpret this result as normal/abnormal . [facility] CenterGoqnjufFSVSKNTOVA5126-58-65 10:50:01 Test Item Value Reference Range Interpretation Comments Neutrophils # (test code = Neutrophils 6.3 1.5-8.1 #) [facility] CenterVaebqioNRZMBIFGSE9637-38-39 10:50:01 Test Item Value Reference Range Interpretation Comments Eosinophils (test code = 2.0 See_Comment [A utomated message] The Eosinophils) system which ge nerated this result tra nsmitted reference range : <=4.0. The reference r boubacar was not used to int erpret this result as normal/abnormal . [facility] CenterAzphrgvNXAQBRWNHR5822-13-95 10:50:01 Test Item Value Reference Range Interpretation Comments Segs (test code = Segs) 67.4 45.0-75.0 [facility] CenterHtdcbrfRRQKHJYAVO8513-32-97 10:50:01 Test Item Value Reference Range Interpretation Comments Lymphocytes (test code = Lymphocytes) 19.9 20.0-40.0 [facility] CenterNpaepsbHYKIDBYLIE0725-31-64 10:50:01 Test Item Value Reference Range Interpretation Comments Basophils (test code = 1.0 See_Comment [Aut omated message] The Basophils) system which ge nerated this result tra nsmitted reference range : <=1.0. The reference r boubacar was not used to int erpret this result as normal/abnormal . [facility] CenterNembotqFYUBREJMFG3808-29-79 10:50:01 Test Item Value Reference Range Interpretation Comments Monocytes (test code = Monocytes) 9.7 2.0-12.0 [facility]2018-11-08 10:50:01 Test Item Value Reference Range Interpretation Comments eGFR (test code = eGFR) 133 [facility]2018-11-08 10:50:01 Test Item Value Reference Range Interpretation Comments Calcium Lvl (test code = Calcium Lvl) 9.4 8.5-10.5 [facility]2018-11-08 10:50:01 Test Item Value Reference Range Interpretation Comments CO2 (test code = CO2) 28 24-32 [facility]2018-11-08 10:50:01 Test Item Value Reference Range Interpretation Comments BUN (test code = BUN) 14 7-22 [facility]2018-11-08 10:50:01 Test Item Value Reference Range Interpretation Comments Glucose Lvl (test code = Glucose Lvl) 89 70-99 [facility]2018-11-08 10:50:01 Test Item Value Reference Range Interpretation Comments Chloride Lvl (test code = Chloride Lvl) 104 95-109 [facility]2018-11-08 10:50:01 Test Item Value Reference Range Interpretation Comments Potassium Lvl (test code = Potassium 4.2 3.5-5.1 Lvl) [facility]2018-11-08 10:50:01 Test Item Value Reference Range Interpretation Comments Sodium Lvl (test code = Sodium Lvl) 137 135-145 [facility]2018-11-08 10:50:01 Test Item Value Reference Range Interpretation Comments Creatinine Lvl (test code = Creatinine 0.85 0.50-1.40 Lvl) [facility]2018-11-08 10:50:01 Test Item Value Reference Range Interpretation Comments AGAP (test code = AGAP) 9.2 10.0-20.0 [facility]WtptofiTGHOVYFVXM1444-60-99 10:50:01 Test Item Value Reference Range Interpretation Comments ACT (TEG) Rapid (test code = ACT (TEG) 136 s 86-118 Rapid) [facility] CenterKywigjhTCEYLNDADB9220-08-22 10:50:01 Test Item Value Reference Range Interpretation Comments Split Point Rapid (test code = Split 0.6 min Point Rapid) [facility] CenterSlwjykmGNYKKPEZHO3843-35-55 10:50:01 Test Item Value Reference Range Interpretation Comments R-time Rapid (test code = R-time 0.9 min 0.4-0.7 Rapid) [facility] CenterRrpobkiQLXNVWESSJ8148-58-06 10:50:01 Test Item Value Reference Range Interpretation Comments K-time Rapid (test code = K-time 1.4 min 0.6-2.3 Rapid) [facility] CenterFyefaibDYUQWJPWMD7313-60-04 10:50:01 Test Item Value Reference Range Interpretation Comments Angle Rapid (test code = Angle 71 degrees 64-80 Rapid) [facility] CenterYdfjpofJJBFOMAFCY1386-92-67 10:50:01 Test Item Value Reference Range Interpretation Comments G-value Rapid (test code = G-value 12.7 5.0-11.6 Rapid) [facility] CenterXdtcrcgEHNJAIBICN3481-74-50 10:50:01 Test Item Value Reference Range Interpretation Comments Max Amplitude Rapid (test code = Max 72 mm 52-71 Amplitude Rapid) [facility] CenterHidjyuaFLPFCKEKII7718-97-30 10:50:01 Test Item Value Reference Range Interpretation Comments Estimated % Lysis Rapid 0.1 See_Comment [Au tomated message] The (test code = Estimated syste m which generated % Lysis Rapid) this result t ransmitted reference range : <=7.5. The reference r boubacar was not used to int erpret this result as normal/abnormal . [facility] CenterGkriboaXQNJCFDHCX7208-46-36 10:50:01 Test Item Value Reference Range Interpretation Comments Platelet (test code = Platelet) 367 133-450 [facility] CenterCcuvpnkIFBSQQYHOF4489-20-42 10:50:01 Test Item Value Reference Range Interpretation Comments MPV (test code = MPV) 7.8 7.4-10.4 [facility] CenterWuzgrnqKISTZQACBI1473-75-57 10:50:01 Test Item Value Reference Range Interpretation Comments MCH (test code = MCH) 27.4 pg 27.0-31.0 [facility] CenterPwboorrITRZWDCUMS2858-65-36 10:50:01 Test Item Value Reference Range Interpretation Comments MCV (test code = MCV) 80.7 80.0-94.0 [facility] CenterSezisztPAAWHMUEMV8651-54-78 10:50:01 Test Item Value Reference Range Interpretation Comments MCHC (test code = MCHC) 34.0 32.0-36.0 [facility] CenterPxnzyvxHQSCYAZUXS5614-73-26 10:50:01 Test Item Value Reference Range Interpretation Comments RDW (test code = RDW) 18.9 11.5-14.5 [facility] CenterItjkulxYSMFNOCSZZ2664-79-46 10:50:01 Test Item Value Reference Range Interpretation Comments Hct (test code = Hct) 43.3 42.0-54.0 [facility] CenterKpbyaouPWMYOEIJFM8494-60-07 10:50:01 Test Item Value Reference Range Interpretation Comments WBC (test code = WBC) 9.3 3.7-10.4 [facility] CenterHhzwxznOGOJUARTQZ6554-53-43 10:50:01 Test Item Value Reference Range Interpretation Comments Hgb (test code = Hgb) 14.7 14.0-18.0 [facility] CenterHcsyvslCHESWRQESQ0945-91-92 10:50:01 Test Item Value Reference Range Interpretation Comments RBC (test code = RBC) 5.36 4.70-6.10 [facility] CenterShulxymSVGMPUUXBY3913-87-30 10:50:01 Test Item Value Reference Range Interpretation Comments Eosinophils # (test code 0.2 See_Comment [A utomated message] The = Eosinophils #) system whic h generated this result tra nsmitted reference range : <=0.5. The reference r boubacar was not used to int erpret this result as normal/abnormal . [facility] CenterXsmxjbwEIRODZFUKR5108-32-47 10:50:01 Test Item Value Reference Range Interpretation Comments Basophils # (test code 0.1 See_Comment [Aut omated message] The = Basophils #) system which generated this result tra nsmitted reference range : <=0.2. The reference r boubacar was not used to int erpret this result as normal/abnormal . [facility] CenterEaflopjIOUXYTQMJK1164-19-78 10:50:01 Test Item Value Reference Range Interpretation Comments Lymphocytes # (test code = Lymphocytes 1.8 1.0-5.5 #) [facility] CenterZnniremOXLVAZJTKL3032-81-62 10:50:01 Test Item Value Reference Range Interpretation Comments Monocytes # (test code 0.9 See_Comment [Aut omated message] The = Monocytes #) system which generated this result tra nsmitted reference range : <=0.8. The reference r boubacar was not used to int erpret this result as normal/abnormal . [facility] CenterJaspfrxFUKPWIJLPI8682-68-54 10:50:01 Test Item Value Reference Range Interpretation Comments Neutrophils # (test code = Neutrophils 6.3 1.5-8.1 #) [facility] CenterOrnqafhFNXHYEOVCC6374-07-97 10:50:01 Test Item Value Reference Range Interpretation Comments Eosinophils (test code = 2.0 See_Comment [A utomated message] The Eosinophils) system which ge nerated this result tra nsmitted reference range : <=4.0. The reference r boubacar was not used to int erpret this result as normal/abnormal . [facility] CenterXugsdhuSIWQDSUFZZ1554-16-53 10:50:01 Test Item Value Reference Range Interpretation Comments Segs (test code = Segs) 67.4 45.0-75.0 [facility] CenterGqjumsmLTVJVXTWKV4574-47-13 10:50:01 Test Item Value Reference Range Interpretation Comments Lymphocytes (test code = Lymphocytes) 19.9 20.0-40.0 [facility] CenterKazwrtsXUNBRIBUSY6254-89-98 10:50:01 Test Item Value Reference Range Interpretation Comments Basophils (test code = 1.0 See_Comment [Aut omated message] The Basophils) system which ge nerated this result tra nsmitted reference range : <=1.0. The reference r boubacar was not used to int erpret this result as normal/abnormal . [facility] CenterJhfrqsaEOPVWYZLCB3568-23-47 10:50:01 Test Item Value Reference Range Interpretation Comments Monocytes (test code = Monocytes) 9.7 2.0-12.0 [facility]2018-05-08 05:42:00 Test Item Value Reference Range Interpretation Comments B/C Ratio (test code = B/C Ratio) 17 1 6-25 [facility]2018-05-08 05:42:00 Test Item Value Reference Range Interpretation Comments Globulin (test code = Globulin) 4.3 2.7-4.2 [facility]2018-05-08 05:42:00 Test Item Value Reference Range Interpretation Comments A/G Ratio (test code = A/G Ratio) 0.7 1 0.7-1.6 [facility]2018-05-08 05:42:00 Test Item Value Reference Range Interpretation Comments AGAP (test code = AGAP) 14.4 10.0-20.0 [facility]2018-05-08 05:42:00 Test Item Value Reference Range Interpretation Comments eGFR (test code = eGFR) 113 [facility]2018-05-08 05:42:00 Test Item Value Reference Range Interpretation Comments Alk Phos (test code = Alk Phos) 76 39-136 [facility]2018-05-08 05:42:00 Test Item Value Reference Range Interpretation Comments ALT (test code = ALT) 35 See_Comment [Auto mated message] The system which ge nerated this result transmit lester reference range : <=65. The reference range was not used to interpr et this result as dany l/abnormal. [facility]2018-05-08 05:42:00 Test Item Value Reference Range Interpretation Comments Albumin Lvl (test code = Albumin Lvl) 2.8 3.5-5.0 [facility]2018-05-08 05:42:00 Test Item Value Reference Range Interpretation Comments Total Protein (test code = Total 7.1 6.4-8.4 Protein) [facility]2018-05-08 05:42:00 Test Item Value Reference Range Interpretation Comments Calcium Lvl (test code = Calcium Lvl) 8.7 8.5-10.5 [facility]2018-05-08 05:42:00 Test Item Value Reference Range Interpretation Comments AST (test code = AST) 18 See_Comment [Auto mated message] The system which ge nerated this result transmit lester reference range : <=37. The reference range was not used to interpr et this result as dany l/abnormal. [facility]2018-05-08 05:42:00 Test Item Value Reference Range Interpretation Comments Bili Total (test code = Bili Total) 0.3 0.2-1.3 [facility]2018-05-08 05:42:00 Test Item Value Reference Range Interpretation Comments Potassium Lvl (test code = Potassium 4.4 3.5-5.1 Lvl) [facility]2018-05-08 05:42:00 Test Item Value Reference Range Interpretation Comments Chloride Lvl (test code = Chloride Lvl) 109 95-109 [facility]2018-05-08 05:42:00 Test Item Value Reference Range Interpretation Comments CO2 (test code = CO2) 23 24-32 [facility]2018-05-08 05:42:00 Test Item Value Reference Range Interpretation Comments Glucose Lvl (test code = Glucose Lvl) 114 70-99 [facility]2018-05-08 05:42:00 Test Item Value Reference Range Interpretation Comments Creatinine Lvl (test code = Creatinine 1.01 0.50-1.40 Lvl) [facility]2018-05-08 05:42:00 Test Item Value Reference Range Interpretation Comments BUN (test code = BUN) 17 7-22 [facility]2018-05-08 05:42:00 Test Item Value Reference Range Interpretation Comments Sodium Lvl (test code = Sodium Lvl) 142 135-145 [facility] CenterSrsyyokKQSBKXOMOD0994-26-44 05:42:00 Test Item Value Reference Range Interpretation Comments Basophils (test code = 0.6 See_Comment [Aut omated message] The Basophils) system which ge nerated this result tra nsmitted reference range : <=1.0. The reference r boubacar was not used to int erpret this result as normal/abnormal . [facility] CenterKcowlxzUUJBDHTMFL6953-54-00 05:42:00 Test Item Value Reference Range Interpretation Comments Segs-Bands # (test code = Segs-Bands #) 4.8 1.5-8.1 [place] 804948-05-08 05:42:00 Test Item Value Reference Range Interpretation Comments Monocytes # (test code 0.7 See_Comment [Aut omated message] The = Monocytes #) system which generated this result tra nsmitted reference range : <=0.8. The reference r boubacar was not used to int erpret this result as normal/abnormal . [facility] CenterTojvnndXQWTHWMCCE3344-77-85 05:42:00 Test Item Value Reference Range Interpretation Comments Lymphocytes # (test code = Lymphocytes 1.9 1.0-5.5 #) [facility] CenterBbdymmbCKHDESAUCF8135-73-06 05:42:00 Test Item Value Reference Range Interpretation Comments Monocytes (test code = Monocytes) 9.4 2.0-12.0 [facility] CenterZvkrsnzAIYOWPZUOK5570-39-69 05:42:00 Test Item Value Reference Range Interpretation Comments Eosinophils # (test code 0.2 See_Comment [A utomated message] The = Eosinophils #) system whic h generated this result tra nsmitted reference range : <=0.5. The reference r boubacar was not used to int erpret this result as normal/abnormal . [facility] CenterXjpmhsvPULUPTHDNN8369-46-97 05:42:00 Test Item Value Reference Range Interpretation Comments Eosinophils (test code = 2.9 See_Comment [A utomated message] The Eosinophils) system which ge nerated this result tra nsmitted reference range : <=4.0. The reference r boubacar was not used to int erpret this result as normal/abnormal . [facility] CenterOnzlnsjHJBCTUYUYN7660-84-20 05:42:00 Test Item Value Reference Range Interpretation Comments Segs (test code = Segs) 62.2 45.0-75.0 [facility] CenterGcjnyjoHKDBBTABQW8360-47-39 05:42:00 Test Item Value Reference Range Interpretation Comments Lymphocytes (test code = Lymphocytes) 24.9 20.0-40.0 [facility] CenterAgeigbqRHSOQLIWWY1346-37-62 05:42:00 Test Item Value Reference Range Interpretation Comments MCH (test code = MCH) 27.5 pg 27.0-31.0 [facility] CenterUiwzdeeXSFNGUHKOZ7100-16-00 05:42:00 Test Item Value Reference Range Interpretation Comments MCV (test code = MCV) 85.3 80.0-94.0 [facility] CenterYmszkgyNUIZCTCQHC4997-68-51 05:42:00 Test Item Value Reference Range Interpretation Comments Hct (test code = Hct) 43.9 42.0-54.0 [facility] CenterLnkabgzDPMAGWDFQE7887-61-50 05:42:00 Test Item Value Reference Range Interpretation Comments Hgb (test code = Hgb) 14.2 14.0-18.0 [facility] CenterCzzopshJKJHKPWTOA0701-32-04 05:42:00 Test Item Value Reference Range Interpretation Comments WBC (test code = WBC) 7.7 3.7-10.4 [facility] CenterTxxfxysGERMQWZSSL0994-54-10 05:42:00 Test Item Value Reference Range Interpretation Comments RBC (test code = RBC) 5.15 4.70-6.10 [facility] CenterJaxekthOKIMQLIICG3491-91-92 05:42:00 Test Item Value Reference Range Interpretation Comments MPV (test code = MPV) 8.4 7.4-10.4 [facility] CenterMpnkpkxUSEPTWEZQR9516-86-03 05:42:00 Test Item Value Reference Range Interpretation Comments MCHC (test code = MCHC) 32.3 32.0-36.0 [facility] CenterLbnzwdzWLGGLLCICS9239-65-15 05:42:00 Test Item Value Reference Range Interpretation Comments RDW (test code = RDW) 17.3 11.5-14.5 [facility] CenterQuizptfQHKSYIHMTT0767-97-24 05:42:00 Test Item Value Reference Range Interpretation Comments Platelet (test code = Platelet) 317 133-450 [facility]2018-05-08 05:42:00 Test Item Value Reference Range Interpretation Comments B/C Ratio (test code = B/C Ratio) 17 1 6-25 [facility]2018-05-08 05:42:00 Test Item Value Reference Range Interpretation Comments Globulin (test code = Globulin) 4.3 2.7-4.2 [facility]2018-05-08 05:42:00 Test Item Value Reference Range Interpretation Comments A/G Ratio (test code = A/G Ratio) 0.7 1 0.7-1.6 [facility]2018-05-08 05:42:00 Test Item Value Reference Range Interpretation Comments AGAP (test code = AGAP) 14.4 10.0-20.0 [facility]2018-05-08 05:42:00 Test Item Value Reference Range Interpretation Comments eGFR (test code = eGFR) 113 [facility]2018-05-08 05:42:00 Test Item Value Reference Range Interpretation Comments Alk Phos (test code = Alk Phos) 76 39-136 [facility]2018-05-08 05:42:00 Test Item Value Reference Range Interpretation Comments ALT (test code = ALT) 35 See_Comment [Auto mated message] The system which ge nerated this result transmit lester reference range : <=65. The reference range was not used to interpr et this result as dany l/abnormal. [facility]2018-05-08 05:42:00 Test Item Value Reference Range Interpretation Comments Albumin Lvl (test code = Albumin Lvl) 2.8 3.5-5.0 [facility]2018-05-08 05:42:00 Test Item Value Reference Range Interpretation Comments Total Protein (test code = Total 7.1 6.4-8.4 Protein) [facility]2018-05-08 05:42:00 Test Item Value Reference Range Interpretation Comments Calcium Lvl (test code = Calcium Lvl) 8.7 8.5-10.5 [facility]2018-05-08 05:42:00 Test Item Value Reference Range Interpretation Comments AST (test code = AST) 18 See_Comment [Auto mated message] The system which ge nerated this result transmit lester reference range : <=37. The reference range was not used to interpr et this result as dany l/abnormal. [facility]2018-05-08 05:42:00 Test Item Value Reference Range Interpretation Comments Bili Total (test code = Bili Total) 0.3 0.2-1.3 [facility]2018-05-08 05:42:00 Test Item Value Reference Range Interpretation Comments Potassium Lvl (test code = Potassium 4.4 3.5-5.1 Lvl) [facility]2018-05-08 05:42:00 Test Item Value Reference Range Interpretation Comments Chloride Lvl (test code = Chloride Lvl) 109 95-109 [facility]2018-05-08 05:42:00 Test Item Value Reference Range Interpretation Comments CO2 (test code = CO2) 23 24-32 [facility]2018-05-08 05:42:00 Test Item Value Reference Range Interpretation Comments Glucose Lvl (test code = Glucose Lvl) 114 70-99 [facility]2018-05-08 05:42:00 Test Item Value Reference Range Interpretation Comments Creatinine Lvl (test code = Creatinine 1.01 0.50-1.40 Lvl) [facility]2018-05-08 05:42:00 Test Item Value Reference Range Interpretation Comments BUN (test code = BUN) 17 7-22 [facility]2018-05-08 05:42:00 Test Item Value Reference Range Interpretation Comments Sodium Lvl (test code = Sodium Lvl) 142 135-145 [facility] CenterRceedwxDFGCMXAKDN5425-84-07 05:42:00 Test Item Value Reference Range Interpretation Comments Basophils (test code = 0.6 See_Comment [Aut omated message] The Basophils) system which ge nerated this result tra nsmitted reference range : <=1.0. The reference r boubacar was not used to int erpret this result as normal/abnormal . [facility] CenterMgmzkmsNULSUTOFTO2214-42-72 05:42:00 Test Item Value Reference Range Interpretation Comments Segs-Bands # (test code = Segs-Bands #) 4.8 1.5-8.1 [facility] CenterCxuxsgsDLRYWYBFZI8076-58-80 05:42:00 Test Item Value Reference Range Interpretation Comments Monocytes # (test code 0.7 See_Comment [Aut omated message] The = Monocytes #) system which generated this result tra nsmitted reference range : <=0.8. The reference r boubacar was not used to int erpret this result as normal/abnormal . [facility] CenterGcbcuhjPAIPKYKJOF0152-46-89 05:42:00 Test Item Value Reference Range Interpretation Comments Lymphocytes # (test code = Lymphocytes 1.9 1.0-5.5 #) [facility] CenterLcyzwclVKEPLNKWZR6681-10-34 05:42:00 Test Item Value Reference Range Interpretation Comments Monocytes (test code = Monocytes) 9.4 2.0-12.0 [facility] CenterZdoznzrDOYCPGJERJ1338-40-23 05:42:00 Test Item Value Reference Range Interpretation Comments Eosinophils # (test code 0.2 See_Comment [A utomated message] The = Eosinophils #) system whic h generated this result tra nsmitted reference range : <=0.5. The reference r boubacar was not used to int erpret this result as normal/abnormal . [facility] CenterNgudlgiOFIUZFJZLS0097-43-90 05:42:00 Test Item Value Reference Range Interpretation Comments Eosinophils (test code = 2.9 See_Comment [A utomated message] The Eosinophils) system which ge nerated this result tra nsmitted reference range : <=4.0. The reference r boubacar was not used to int erpret this result as normal/abnormal . [facility] CenterFmxzlouXKCUUGZBSZ2622-29-28 05:42:00 Test Item Value Reference Range Interpretation Comments Segs (test code = Segs) 62.2 45.0-75.0 [facility] CenterAzukkpsKBCWNKZOIF8939-10-97 05:42:00 Test Item Value Reference Range Interpretation Comments Lymphocytes (test code = Lymphocytes) 24.9 20.0-40.0 [facility] CenterRkxkecuHEOFMRPBUW6446-71-99 05:42:00 Test Item Value Reference Range Interpretation Comments MCH (test code = MCH) 27.5 pg 27.0-31.0 [facility] CenterUnoyskvOTWLHUPWLD8640-64-17 05:42:00 Test Item Value Reference Range Interpretation Comments MCV (test code = MCV) 85.3 80.0-94.0 [facility] CenterDlvmpnkGRVGTDNNWE0145-29-37 05:42:00 Test Item Value Reference Range Interpretation Comments Hct (test code = Hct) 43.9 42.0-54.0 [facility] CenterGbnowqgIGBROYGEMG4278-59-42 05:42:00 Test Item Value Reference Range Interpretation Comments Hgb (test code = Hgb) 14.2 14.0-18.0 [facility] CenterCsdhduiCVONXMDAZS5973-89-17 05:42:00 Test Item Value Reference Range Interpretation Comments WBC (test code = WBC) 7.7 3.7-10.4 [facility] CenterLemruuyEUKWACEXNG8395-00-45 05:42:00 Test Item Value Reference Range Interpretation Comments RBC (test code = RBC) 5.15 4.70-6.10 [facility] CenterMatrmclCZSEUVOUSP7889-95-88 05:42:00 Test Item Value Reference Range Interpretation Comments MPV (test code = MPV) 8.4 7.4-10.4 [facility] CenterGgimzilFBXOWXRXEE7581-55-53 05:42:00 Test Item Value Reference Range Interpretation Comments MCHC (test code = MCHC) 32.3 32.0-36.0 [facility] CenterKlmufwrLWXUOLPWEM0560-89-42 05:42:00 Test Item Value Reference Range Interpretation Comments RDW (test code = RDW) 17.3 11.5-14.5 [facility]kjFVIKMGRLWW5987-97-99 05:42:00 Test Item Value Reference Range Interpretation Comments Platelet (test code = Platelet) 317 133-450 [facility]2018-05-08 05:42:00 Test Item Value Reference Range Interpretation Comments B/C Ratio (test code = B/C Ratio) 17 1 6-25 [facility]2018-05-08 05:42:00 Test Item Value Reference Range Interpretation Comments Globulin (test code = Globulin) 4.3 2.7-4.2 [facility]2018-05-08 05:42:00 Test Item Value Reference Range Interpretation Comments A/G Ratio (test code = A/G Ratio) 0.7 1 0.7-1.6 [facility]2018-05-08 05:42:00 Test Item Value Reference Range Interpretation Comments AGAP (test code = AGAP) 14.4 10.0-20.0 [facility]2018-05-08 05:42:00 Test Item Value Reference Range Interpretation Comments eGFR (test code = eGFR) 113 [facility]2018-05-08 05:42:00 Test Item Value Reference Range Interpretation Comments Alk Phos (test code = Alk Phos) 76 39-136 [facility]2018-05-08 05:42:00 Test Item Value Reference Range Interpretation Comments ALT (test code = ALT) 35 See_Comment [Auto mated message] The system which ge nerated this result transmit lester reference range : <=65. The reference range was not used to interpr et this result as dany l/abnormal. [facility]2018-05-08 05:42:00 Test Item Value Reference Range Interpretation Comments Albumin Lvl (test code = Albumin Lvl) 2.8 3.5-5.0 [facility]2018-05-08 05:42:00 Test Item Value Reference Range Interpretation Comments Total Protein (test code = Total 7.1 6.4-8.4 Protein) [facility]2018-05-08 05:42:00 Test Item Value Reference Range Interpretation Comments Calcium Lvl (test code = Calcium Lvl) 8.7 8.5-10.5 [facility]2018-05-08 05:42:00 Test Item Value Reference Range Interpretation Comments AST (test code = AST) 18 See_Comment [Auto mated message] The system which ge nerated this result transmit lester reference range : <=37. The reference range was not used to interpr et this result as dany l/abnormal. [facility]2018-05-08 05:42:00 Test Item Value Reference Range Interpretation Comments Bili Total (test code = Bili Total) 0.3 0.2-1.3 [facility]2018-05-08 05:42:00 Test Item Value Reference Range Interpretation Comments Potassium Lvl (test code = Potassium 4.4 3.5-5.1 Lvl) [facility]2018-05-08 05:42:00 Test Item Value Reference Range Interpretation Comments Chloride Lvl (test code = Chloride Lvl) 109 95-109 [facility]2018-05-08 05:42:00 Test Item Value Reference Range Interpretation Comments CO2 (test code = CO2) 23 24-32 [facility]2018-05-08 05:42:00 Test Item Value Reference Range Interpretation Comments Glucose Lvl (test code = Glucose Lvl) 114 70-99 [facility]2018-05-08 05:42:00 Test Item Value Reference Range Interpretation Comments Creatinine Lvl (test code = Creatinine 1.01 0.50-1.40 Lvl) [facility]2018-05-08 05:42:00 Test Item Value Reference Range Interpretation Comments BUN (test code = BUN) 17 7-22 [facility]2018-05-08 05:42:00 Test Item Value Reference Range Interpretation Comments Sodium Lvl (test code = Sodium Lvl) 142 135-145 [facility]VnjpfadWJMVBTCAJI8545-07-35 05:42:00 Test Item Value Reference Range Interpretation Comments Basophils (test code = 0.6 See_Comment [Aut omated message] The Basophils) system which ge nerated this result tra nsmitted reference range : <=1.0. The reference r boubacar was not used to int erpret this result as normal/abnormal . [facility] CenterSpcomtaGZJXSRHDOZ6773-86-04 05:42:00 Test Item Value Reference Range Interpretation Comments Segs-Bands # (test code = Segs-Bands #) 4.8 1.5-8.1 [facility] CenterRdlvddfGEXAQXDXFQ7571-41-91 05:42:00 Test Item Value Reference Range Interpretation Comments Monocytes # (test code 0.7 See_Comment [Aut omated message] The = Monocytes #) system which generated this result tra nsmitted reference range : <=0.8. The reference r boubacar was not used to int erpret this result as normal/abnormal . [facility] CenterTaxgstjKMEKJDZJNP2115-62-86 05:42:00 Test Item Value Reference Range Interpretation Comments Lymphocytes # (test code = Lymphocytes 1.9 1.0-5.5 #) [facility] CenterYmplzyfJUPDTWLQMW6971-83-45 05:42:00 Test Item Value Reference Range Interpretation Comments Monocytes (test code = Monocytes) 9.4 2.0-12.0 [facility] CenterSxqzsynQEXLEUDNTH7609-83-99 05:42:00 Test Item Value Reference Range Interpretation Comments Eosinophils # (test code 0.2 See_Comment [A utomated message] The = Eosinophils #) system whic h generated this result tra nsmitted reference range : <=0.5. The reference r boubacar was not used to int erpret this result as normal/abnormal . [facility] CenterYecrkrcDWGFDHATES5414-91-35 05:42:00 Test Item Value Reference Range Interpretation Comments Eosinophils (test code = 2.9 See_Comment [A utomated message] The Eosinophils) system which ge nerated this result tra nsmitted reference range : <=4.0. The reference r boubacar was not used to int erpret this result as normal/abnormal . [facility] CenterQcyxaziMQEBYUKJOG8558-10-83 05:42:00 Test Item Value Reference Range Interpretation Comments Segs (test code = Segs) 62.2 45.0-75.0 [facility] CenterUgpbkwkOVNNXIISEW7238-07-85 05:42:00 Test Item Value Reference Range Interpretation Comments Lymphocytes (test code = Lymphocytes) 24.9 20.0-40.0 [facility] CenterBjfgdghNBLUAFVXUD6676-23-31 05:42:00 Test Item Value Reference Range Interpretation Comments MCH (test code = MCH) 27.5 pg 27.0-31.0 [facility] CenterZflkhooRDZGNZXROH1757-76-34 05:42:00 Test Item Value Reference Range Interpretation Comments MCV (test code = MCV) 85.3 80.0-94.0 [facility] CenterZlmqcfxATAXRACSYU1888-20-38 05:42:00 Test Item Value Reference Range Interpretation Comments Hct (test code = Hct) 43.9 42.0-54.0 [facility] CenterRfhtjksQESXKCPJYJ6126-81-38 05:42:00 Test Item Value Reference Range Interpretation Comments Hgb (test code = Hgb) 14.2 14.0-18.0 [facility] CenterJvajiokXBUBOERJSD5462-07-21 05:42:00 Test Item Value Reference Range Interpretation Comments WBC (test code = WBC) 7.7 3.7-10.4 [facility] CenterVnybbwsEQAJLDIJLZ2830-16-37 05:42:00 Test Item Value Reference Range Interpretation Comments RBC (test code = RBC) 5.15 4.70-6.10 [facility] CenterBmzlcgcOACINLPTMO3891-26-18 05:42:00 Test Item Value Reference Range Interpretation Comments MPV (test code = MPV) 8.4 7.4-10.4 [facility] CenterHamnhenWKJIFRVRZI0848-56-13 05:42:00 Test Item Value Reference Range Interpretation Comments MCHC (test code = MCHC) 32.3 32.0-36.0 [facility] CenterRfgjrzyIBOZOOPHHG9096-00-58 05:42:00 Test Item Value Reference Range Interpretation Comments RDW (test code = RDW) 17.3 11.5-14.5 [facility] CenterCotwplsTDKLWNGXPJ9610-40-23 05:42:00 Test Item Value Reference Range Interpretation Comments Platelet (test code = Platelet) 317 133-450 [facility] CenterNfmbdptKELJNKDHLI8834-26-70 09:36:00 Test Item Value Reference Range Interpretation Comments MCV (test code = MCV) 86.1 80.0-94.0 [facility] CenterBfeyjiyNEJKGIVBMU9179-73-22 09:36:00 Test Item Value Reference Range Interpretation Comments Hct (test code = Hct) 44.5 42.0-54.0 [facility] CenterZbejtzyVNSWDNAWVD1286-58-10 09:36:00 Test Item Value Reference Range Interpretation Comments MCH (test code = MCH) 28.0 pg 27.0-31.0 [facility] CenterMggiqtrSXANGKRDDZ2841-25-70 09:36:00 Test Item Value Reference Range Interpretation Comments Hgb (test code = Hgb) 14.5 14.0-18.0 [facility] CenterCyicoxhHXRWTAEJYH7992-84-96 09:36:00 Test Item Value Reference Range Interpretation Comments Lymphocytes # (test code = Lymphocytes 1.7 1.0-5.5 #) [facility] CenterOsnockaATIXCFCPDX7795-04-28 09:36:00 Test Item Value Reference Range Interpretation Comments Monocytes # (test code 0.7 See_Comment [Aut omated message] The = Monocytes #) system which generated this result tra nsmitted reference range : <=0.8. The reference r boubacar was not used to int erpret this result as normal/abnormal . [facility] CenterPfzewanIVJXLZUFUB7576-50-28 09:36:00 Test Item Value Reference Range Interpretation Comments Eosinophils # (test code 0.2 See_Comment [A utomated message] The = Eosinophils #) system whic h generated this result tra nsmitted reference range : <=0.5. The reference r boubacar was not used to int erpret this result as normal/abnormal . [facility] CenterQjrtulxEOMWIRLCTF2903-61-47 09:36:00 Test Item Value Reference Range Interpretation Comments Lymphocytes (test code = Lymphocytes) 26.1 20.0-40.0 [facility] CenterDzpkktyFMZZAWJXCI8575-14-06 09:36:00 Test Item Value Reference Range Interpretation Comments Segs (test code = Segs) 59.3 45.0-75.0 [facility] CenterBujjjplFJKVWLSPDE3986-13-47 09:36:00 Test Item Value Reference Range Interpretation Comments Basophils (test code = 0.8 See_Comment [Aut omated message] The Basophils) system which ge nerated this result tra nsmitted reference range : <=1.0. The reference r boubacar was not used to int erpret this result as normal/abnormal . [facility] CenterTsejyrnJQEMOENWER6928-03-19 09:36:00 Test Item Value Reference Range Interpretation Comments Monocytes (test code = Monocytes) 10.5 2.0-12.0 [facility] CenterMgkotdeJBKYZOKKJK2825-47-66 09:36:00 Test Item Value Reference Range Interpretation Comments Eosinophils (test code = 3.3 See_Comment [A utomated message] The Eosinophils) system which ge nerated this result tra nsmitted reference range : <=4.0. The reference r boubacar was not used to int erpret this result as normal/abnormal . [facility] CenterNciydtyYJELPSLQOD2258-75-95 09:36:00 Test Item Value Reference Range Interpretation Comments Segs-Bands # (test code = Segs-Bands #) 3.9 1.5-8.1 [facility]2018-05-07 09:36:00 Test Item Value Reference Range Interpretation Comments Globulin (test code = Globulin) 4.4 2.7-4.2 [facility]2018-05-07 09:36:00 Test Item Value Reference Range Interpretation Comments A/G Ratio (test code = A/G Ratio) 0.6 1 0.7-1.6 [place] 211048-05-07 09:36:00 Test Item Value Reference Range Interpretation Comments B/C Ratio (test code = B/C Ratio) 17 1 6-25 [place] 211048-05-07 09:36:00 Test Item Value Reference Range Interpretation Comments AGAP (test code = AGAP) 11.3 10.0-20.0 [place] 211048-05-07 09:36:00 Test Item Value Reference Range Interpretation Comments eGFR (test code = eGFR) 134 [facility]2018-05-07 09:36:00 Test Item Value Reference Range Interpretation Comments Creatinine Lvl (test code = Creatinine 0.84 0.50-1.40 Lvl) [facility]2018-05-07 09:36:00 Test Item Value Reference Range Interpretation Comments Sodium Lvl (test code = Sodium Lvl) 142 135-145 [facility]2018-05-07 09:36:00 Test Item Value Reference Range Interpretation Comments Glucose Lvl (test code = Glucose Lvl) 99 70-99 [facility]2018-05-07 09:36:00 Test Item Value Reference Range Interpretation Comments BUN (test code = BUN) 14 7-22 [place] 211048-05-07 09:36:00 Test Item Value Reference Range Interpretation Comments Alk Phos (test code = Alk Phos) 79 39-136 [facility]2018-05-07 09:36:00 Test Item Value Reference Range Interpretation Comments Bili Total (test code = Bili Total) 0.3 0.2-1.3 [facility]2018-05-07 09:36:00 Test Item Value Reference Range Interpretation Comments AST (test code = AST) 14 See_Comment [Auto mated message] The system which ge nerated this result transmit lester reference range : <=37. The reference range was not used to interpr et this result as dany l/abnormal. [facility]2018-05-07 09:36:00 Test Item Value Reference Range Interpretation Comments ALT (test code = ALT) 43 See_Comment [Auto mated message] The system which ge nerated this result transmit lester reference range : <=65. The reference range was not used to interpr et this result as dany l/abnormal. [place] 211048-05-07 09:36:00 Test Item Value Reference Range Interpretation Comments Total Protein (test code = Total 7.1 6.4-8.4 Protein) [place] 211048-05-07 09:36:00 Test Item Value Reference Range Interpretation Comments Albumin Lvl (test code = Albumin Lvl) 2.7 3.5-5.0 [place] 211048-05-07 09:36:00 Test Item Value Reference Range Interpretation Comments Calcium Lvl (test code = Calcium Lvl) 9.2 8.5-10.5 [place] 211048-05-07 09:36:00 Test Item Value Reference Range Interpretation Comments CO2 (test code = CO2) 21 24-32 [place] 211048-05-07 09:36:00 Test Item Value Reference Range Interpretation Comments Potassium Lvl (test code = Potassium 4.3 3.5-5.1 Lvl) [place] 211048-05-07 09:36:00 Test Item Value Reference Range Interpretation Comments Chloride Lvl (test code = Chloride Lvl) 114 95-109 [facility] CenterMevynpoWTARJFYBVJ2410-97-33 09:36:00 Test Item Value Reference Range Interpretation Comments MCHC (test code = MCHC) 32.5 32.0-36.0 [facility] CenterEysfnlyQCMXYLUPXT0863-35-94 09:36:00 Test Item Value Reference Range Interpretation Comments RDW (test code = RDW) 17.5 11.5-14.5 [facility] CenterLrdasspOQLDTQNCMU3376-77-81 09:36:00 Test Item Value Reference Range Interpretation Comments Platelet (test code = Platelet) 400 133-450 [facility] CenterYskqwaeDKYCOAJCCU7581-64-87 09:36:00 Test Item Value Reference Range Interpretation Comments MPV (test code = MPV) 8.5 7.4-10.4 [facility] CenterExkymzrIDNYPEKKVV4979-20-64 09:36:00 Test Item Value Reference Range Interpretation Comments WBC (test code = WBC) 6.6 3.7-10.4 [facility] CenterAzcklqnNSJKUWNDIQ4105-11-06 09:36:00 Test Item Value Reference Range Interpretation Comments RBC (test code = RBC) 5.17 4.70-6.10 [facility] CenterSavthysCBBNWRXSZK7695-12-56 09:36:00 Test Item Value Reference Range Interpretation Comments MCV (test code = MCV) 86.1 80.0-94.0 [facility] CenterIovknrzGORLCQMVMB7593-01-78 09:36:00 Test Item Value Reference Range Interpretation Comments Hct (test code = Hct) 44.5 42.0-54.0 [facility] CenterPgbxzxnTSXYLVEQEW9093-01-34 09:36:00 Test Item Value Reference Range Interpretation Comments MCH (test code = MCH) 28.0 pg 27.0-31.0 [facility] CenterVxbcbybKAAUEGKEYJ4706-46-81 09:36:00 Test Item Value Reference Range Interpretation Comments Hgb (test code = Hgb) 14.5 14.0-18.0 [facility] CenterYqxopdlYXPCTIMCRR8226-29-36 09:36:00 Test Item Value Reference Range Interpretation Comments Lymphocytes # (test code = Lymphocytes 1.7 1.0-5.5 #) [facility] CenterAahahoqUBBXWMHRXS7103-05-35 09:36:00 Test Item Value Reference Range Interpretation Comments Monocytes # (test code 0.7 See_Comment [Aut omated message] The = Monocytes #) system which generated this result tra nsmitted reference range : <=0.8. The reference r boubacar was not used to int erpret this result as normal/abnormal . [facility] CenterQunjriuKKPXPEARJG4194-30-39 09:36:00 Test Item Value Reference Range Interpretation Comments Eosinophils # (test code 0.2 See_Comment [A utomated message] The = Eosinophils #) system whic h generated this result tra nsmitted reference range : <=0.5. The reference r boubacar was not used to int erpret this result as normal/abnormal . [facility] CenterUffrrstRXFDBJHPNJ2941-57-28 09:36:00 Test Item Value Reference Range Interpretation Comments Lymphocytes (test code = Lymphocytes) 26.1 20.0-40.0 [facility] CenterTpshrmiDWXPDKWBKZ4554-31-67 09:36:00 Test Item Value Reference Range Interpretation Comments Segs (test code = Segs) 59.3 45.0-75.0 [facility] CenterPuxnrweSGTTYFPANY8256-31-43 09:36:00 Test Item Value Reference Range Interpretation Comments Basophils (test code = 0.8 See_Comment [Aut omated message] The Basophils) system which ge nerated this result tra nsmitted reference range : <=1.0. The reference r boubacar was not used to int erpret this result as normal/abnormal . [facility] CenterQdsvapzVFNTPWHSKT3589-82-38 09:36:00 Test Item Value Reference Range Interpretation Comments Monocytes (test code = Monocytes) 10.5 2.0-12.0 [facility] CenterOkcacvcLGPQUMOPOO6583-40-61 09:36:00 Test Item Value Reference Range Interpretation Comments Eosinophils (test code = 3.3 See_Comment [A utomated message] The Eosinophils) system which ge nerated this result tra nsmitted reference range : <=4.0. The reference r boubacar was not used to int erpret this result as normal/abnormal . [facility] CenterGiygwecBGXLEVPIGD8790-22-14 09:36:00 Test Item Value Reference Range Interpretation Comments Segs-Bands # (test code = Segs-Bands #) 3.9 1.5-8.1 [facility]2018-05-07 09:36:00 Test Item Value Reference Range Interpretation Comments Globulin (test code = Globulin) 4.4 2.7-4.2 [facility]2018-05-07 09:36:00 Test Item Value Reference Range Interpretation Comments A/G Ratio (test code = A/G Ratio) 0.6 1 0.7-1.6 [facility]2018-05-07 09:36:00 Test Item Value Reference Range Interpretation Comments B/C Ratio (test code = B/C Ratio) 17 1 6-25 [facility]2018-05-07 09:36:00 Test Item Value Reference Range Interpretation Comments AGAP (test code = AGAP) 11.3 10.0-20.0 [facility]2018-05-07 09:36:00 Test Item Value Reference Range Interpretation Comments eGFR (test code = eGFR) 134 [facility]2018-05-07 09:36:00 Test Item Value Reference Range Interpretation Comments Creatinine Lvl (test code = Creatinine 0.84 0.50-1.40 Lvl) [facility]2018-05-07 09:36:00 Test Item Value Reference Range Interpretation Comments Sodium Lvl (test code = Sodium Lvl) 142 135-145 [place] 211048-05-07 09:36:00 Test Item Value Reference Range Interpretation Comments Glucose Lvl (test code = Glucose Lvl) 99 70-99 [facility]2018-05-07 09:36:00 Test Item Value Reference Range Interpretation Comments BUN (test code = BUN) 14 7-22 [place] 211048-05-07 09:36:00 Test Item Value Reference Range Interpretation Comments Alk Phos (test code = Alk Phos) 79 39-136 [place] 211048-05-07 09:36:00 Test Item Value Reference Range Interpretation Comments Bili Total (test code = Bili Total) 0.3 0.2-1.3 [place] 211048-05-07 09:36:00 Test Item Value Reference Range Interpretation Comments AST (test code = AST) 14 See_Comment [Auto mated message] The system which ge nerated this result transmit lester reference range : <=37. The reference range was not used to interpr et this result as dany l/abnormal. [place] 211048-05-07 09:36:00 Test Item Value Reference Range Interpretation Comments ALT (test code = ALT) 43 See_Comment [Auto mated message] The system which ge nerated this result transmit lester reference range : <=65. The reference range was not used to interpr et this result as dany l/abnormal. [place] 211048-05-07 09:36:00 Test Item Value Reference Range Interpretation Comments Total Protein (test code = Total 7.1 6.4-8.4 Protein) [place] 211048-05-07 09:36:00 Test Item Value Reference Range Interpretation Comments Albumin Lvl (test code = Albumin Lvl) 2.7 3.5-5.0 [place] 211048-05-07 09:36:00 Test Item Value Reference Range Interpretation Comments Calcium Lvl (test code = Calcium Lvl) 9.2 8.5-10.5 [facility]2018-05-07 09:36:00 Test Item Value Reference Range Interpretation Comments CO2 (test code = CO2) 21 24-32 [facility]2018-05-07 09:36:00 Test Item Value Reference Range Interpretation Comments Potassium Lvl (test code = Potassium 4.3 3.5-5.1 Lvl) [facility]2018-05-07 09:36:00 Test Item Value Reference Range Interpretation Comments Chloride Lvl (test code = Chloride Lvl) 114 95-109 [facility] CenterCollmqwPJVUXGICDX8366-28-87 09:36:00 Test Item Value Reference Range Interpretation Comments MCHC (test code = MCHC) 32.5 32.0-36.0 [facility] CenterNgpeypkGVWEXSKOMC8206-12-22 09:36:00 Test Item Value Reference Range Interpretation Comments RDW (test code = RDW) 17.5 11.5-14.5 [facility] CenterInlynynVNPDEVFCJA1018-77-24 09:36:00 Test Item Value Reference Range Interpretation Comments Platelet (test code = Platelet) 400 133-450 [facility] CenterNppuqvpJUAVXGPTXS5855-91-26 09:36:00 Test Item Value Reference Range Interpretation Comments MPV (test code = MPV) 8.5 7.4-10.4 [facility] CenterQzwzevrOYDSDDUDKY8139-83-81 09:36:00 Test Item Value Reference Range Interpretation Comments WBC (test code = WBC) 6.6 3.7-10.4 [facility] CenterWxdyemgKYXGVWORMA0063-74-38 09:36:00 Test Item Value Reference Range Interpretation Comments RBC (test code = RBC) 5.17 4.70-6.10 [facility] CenterCcxtxbyAPIPQCZMNX7963-43-96 09:36:00 Test Item Value Reference Range Interpretation Comments MCV (test code = MCV) 86.1 80.0-94.0 [facility] CenterUecnhakNHJBPKNDSN2886-26-80 09:36:00 Test Item Value Reference Range Interpretation Comments Hct (test code = Hct) 44.5 42.0-54.0 [facility] CenterSvswqzzEBHAGMSFAH9182-88-74 09:36:00 Test Item Value Reference Range Interpretation Comments MCH (test code = MCH) 28.0 pg 27.0-31.0 [facility] CenterPzmwyigJHOVYBBFYU1127-79-89 09:36:00 Test Item Value Reference Range Interpretation Comments Hgb (test code = Hgb) 14.5 14.0-18.0 [facility] CenterDseygbmCYRJCPWYYH9804-35-36 09:36:00 Test Item Value Reference Range Interpretation Comments Lymphocytes # (test code = Lymphocytes 1.7 1.0-5.5 #) [facility] CenterMqlarmuIMBSULRORQ3542-39-09 09:36:00 Test Item Value Reference Range Interpretation Comments Monocytes # (test code 0.7 See_Comment [Aut omated message] The = Monocytes #) system which generated this result tra nsmitted reference range : <=0.8. The reference r boubacar was not used to int erpret this result as normal/abnormal . [facility] CenterYcmumykOOHMTTCFWB5899-11-67 09:36:00 Test Item Value Reference Range Interpretation Comments Eosinophils # (test code 0.2 See_Comment [A utomated message] The = Eosinophils #) system whic h generated this result tra nsmitted reference range : <=0.5. The reference r boubacar was not used to int erpret this result as normal/abnormal . [facility] CenterTpccqfkVLTFGUXIDF6217-18-74 09:36:00 Test Item Value Reference Range Interpretation Comments Lymphocytes (test code = Lymphocytes) 26.1 20.0-40.0 [facility] CenterRbrxrgmOGYYXXKEKI5895-97-66 09:36:00 Test Item Value Reference Range Interpretation Comments Segs (test code = Segs) 59.3 45.0-75.0 [facility] CenterXmbvnjxJMNARASIYH2459-67-08 09:36:00 Test Item Value Reference Range Interpretation Comments Basophils (test code = 0.8 See_Comment [Aut omated message] The Basophils) system which ge nerated this result tra nsmitted reference range : <=1.0. The reference r boubacar was not used to int erpret this result as normal/abnormal . [facility] CenterJpuledxAHVJFKWBUB3872-50-12 09:36:00 Test Item Value Reference Range Interpretation Comments Monocytes (test code = Monocytes) 10.5 2.0-12.0 [facility] CenterDpgfniiCRHQCOOPZG9731-11-16 09:36:00 Test Item Value Reference Range Interpretation Comments Eosinophils (test code = 3.3 See_Comment [A utomated message] The Eosinophils) system which ge nerated this result tra nsmitted reference range : <=4.0. The reference r boubacar was not used to int erpret this result as normal/abnormal . [facility] CenterWcdfhtbCWLQZVMCWY4543-75-04 09:36:00 Test Item Value Reference Range Interpretation Comments Segs-Bands # (test code = Segs-Bands #) 3.9 1.5-8.1 [facility]2018-05-07 09:36:00 Test Item Value Reference Range Interpretation Comments Globulin (test code = Globulin) 4.4 2.7-4.2 [facility]2018-05-07 09:36:00 Test Item Value Reference Range Interpretation Comments A/G Ratio (test code = A/G Ratio) 0.6 1 0.7-1.6 [place] 211048-05-07 09:36:00 Test Item Value Reference Range Interpretation Comments B/C Ratio (test code = B/C Ratio) 17 1 6-25 [place] 211048-05-07 09:36:00 Test Item Value Reference Range Interpretation Comments AGAP (test code = AGAP) 11.3 10.0-20.0 [facility]2018-05-07 09:36:00 Test Item Value Reference Range Interpretation Comments eGFR (test code = eGFR) 134 [facility]2018-05-07 09:36:00 Test Item Value Reference Range Interpretation Comments Creatinine Lvl (test code = Creatinine 0.84 0.50-1.40 Lvl) [facility]2018-05-07 09:36:00 Test Item Value Reference Range Interpretation Comments Sodium Lvl (test code = Sodium Lvl) 142 135-145 [facility]2018-05-07 09:36:00 Test Item Value Reference Range Interpretation Comments Glucose Lvl (test code = Glucose Lvl) 99 70-99 [facility]2018-05-07 09:36:00 Test Item Value Reference Range Interpretation Comments BUN (test code = BUN) 14 7-22 [place] 211048-05-07 09:36:00 Test Item Value Reference Range Interpretation Comments Alk Phos (test code = Alk Phos) 79 39-136 [place] 211048-05-07 09:36:00 Test Item Value Reference Range Interpretation Comments Bili Total (test code = Bili Total) 0.3 0.2-1.3 [facility]2018-05-07 09:36:00 Test Item Value Reference Range Interpretation Comments AST (test code = AST) 14 See_Comment [Auto mated message] The system which ge nerated this result transmit lester reference range : <=37. The reference range was not used to interpr et this result as dany l/abnormal. [place] 211048-05-07 09:36:00 Test Item Value Reference Range Interpretation Comments ALT (test code = ALT) 43 See_Comment [Auto mated message] The system which ge nerated this result transmit lester reference range : <=65. The reference range was not used to interpr et this result as dany l/abnormal. [place] 211048-05-07 09:36:00 Test Item Value Reference Range Interpretation Comments Total Protein (test code = Total 7.1 6.4-8.4 Protein) [place] 211048-05-07 09:36:00 Test Item Value Reference Range Interpretation Comments Albumin Lvl (test code = Albumin Lvl) 2.7 3.5-5.0 [place] 211048-05-07 09:36:00 Test Item Value Reference Range Interpretation Comments Calcium Lvl (test code = Calcium Lvl) 9.2 8.5-10.5 [place] 211048-05-07 09:36:00 Test Item Value Reference Range Interpretation Comments CO2 (test code = CO2) 21 24-32 [place] 211048-05-07 09:36:00 Test Item Value Reference Range Interpretation Comments Potassium Lvl (test code = Potassium 4.3 3.5-5.1 Lvl) [facility]2018-05-07 09:36:00 Test Item Value Reference Range Interpretation Comments Chloride Lvl (test code = Chloride Lvl) 114 95-109 [facility] CenterLeeztosILVNJDTQSI2812-51-74 09:36:00 Test Item Value Reference Range Interpretation Comments MCHC (test code = MCHC) 32.5 32.0-36.0 [facility] CenterByhxljtJTZCONOPUV9256-73-53 09:36:00 Test Item Value Reference Range Interpretation Comments RDW (test code = RDW) 17.5 11.5-14.5 [place] 804948-05-07 09:36:00 Test Item Value Reference Range Interpretation Comments Platelet (test code = Platelet) 400 133-450 [facility] CenterJexrzaaCDMIESEKUU9965-59-02 09:36:00 Test Item Value Reference Range Interpretation Comments MPV (test code = MPV) 8.5 7.4-10.4 [facility] CenterKcaskffOHOIVKOHTE9475-48-80 09:36:00 Test Item Value Reference Range Interpretation Comments WBC (test code = WBC) 6.6 3.7-10.4 [facility] CenterCuvcgwjUYIPRSVOOD0183-04-15 09:36:00 Test Item Value Reference Range Interpretation Comments RBC (test code = RBC) 5.17 4.70-6.10 [place] [id number] 21:02:00 Test Item Value Reference Range Interpretation Comments Vanco Tr TND (test code = Vanco Tr 15:30pm TND) [place] [id number] 21:02:00 Test Item Value Reference Range Interpretation Comments Vanco Tr (test code = Vanco Tr) 9.1 [place] [id number] 21:02:00 Test Item Value Reference Range Interpretation Comments Vanco Tr TND (test code = Vanco Tr 15:30pm TND) [place] [id number] 21:02:00 Test Item Value Reference Range Interpretation Comments Vanco Tr (test code = Vanco Tr) 9.1 [place] [id number] 21:02:00 Test Item Value Reference Range Interpretation Comments Vanco Tr TND (test code = Vanco Tr 15:30pm TND) [place] [id number] 21:02:00 Test Item Value Reference Range Interpretation Comments Vanco Tr (test code = Vanco Tr) 9.1 [facility]2018-05-06 07:07:00 Test Item Value Reference Range Interpretation Comments Glucose Lvl (test code = Glucose Lvl) 74 70-99 [facility]2018-05-06 07:07:00 Test Item Value Reference Range Interpretation Comments BUN (test code = BUN) 12 7-22 [facility]2018-05-06 07:07:00 Test Item Value Reference Range Interpretation Comments Creatinine Lvl (test code = Creatinine 0.75 0.50-1.40 Lvl) [facility]2018-05-06 07:07:00 Test Item Value Reference Range Interpretation Comments eGFR (test code = eGFR) 140 [facility]2018-05-06 07:07:00 Test Item Value Reference Range Interpretation Comments Albumin Lvl (test code = Albumin Lvl) 2.9 3.5-5.0 [place] 211048-05-06 07:07:00 Test Item Value Reference Range Interpretation Comments Globulin (test code = Globulin) 4.4 2.7-4.2 [place] 211048-05-06 07:07:00 Test Item Value Reference Range Interpretation Comments A/G Ratio (test code = A/G Ratio) 0.7 1 0.7-1.6 [place] 211048-05-06 07:07:00 Test Item Value Reference Range Interpretation Comments Bili Total (test code = Bili Total) 0.4 0.2-1.3 [place] 211048-05-06 07:07:00 Test Item Value Reference Range Interpretation Comments Alk Phos (test code = Alk Phos) 71 39-136 [place] 211048-05-06 07:07:00 Test Item Value Reference Range Interpretation Comments AST (test code = AST) 15 See_Comment [Auto mated message] The system which ge nerated this result transmit lester reference range : <=37. The reference range was not used to interpr et this result as dany l/abnormal. [facility]2018-05-06 07:07:00 Test Item Value Reference Range Interpretation Comments ALT (test code = ALT) 28 See_Comment [Auto mated message] The system which ge nerated this result transmit lester reference range : <=65. The reference range was not used to interpr et this result as dany l/abnormal. [place] 211048-05-06 07:07:00 Test Item Value Reference Range Interpretation Comments Potassium Lvl (test code = Potassium 4.4 3.5-5.1 Lvl) [facility]2018-05-06 07:07:00 Test Item Value Reference Range Interpretation Comments Sodium Lvl (test code = Sodium Lvl) 147 135-145 [place] 211048-05-06 07:07:00 Test Item Value Reference Range Interpretation Comments CO2 (test code = CO2) 25 24-32 [facility]2018-05-06 07:07:00 Test Item Value Reference Range Interpretation Comments Chloride Lvl (test code = Chloride Lvl) 114 95-109 [facility]2018-05-06 07:07:00 Test Item Value Reference Range Interpretation Comments B/C Ratio (test code = B/C Ratio) 16 1 6-25 [place] 211048-05-06 07:07:00 Test Item Value Reference Range Interpretation Comments Calcium Lvl (test code = Calcium Lvl) 8.7 8.5-10.5 [facility]2018-05-06 07:07:00 Test Item Value Reference Range Interpretation Comments AGAP (test code = AGAP) 12.4 10.0-20.0 [facility]2018-05-06 07:07:00 Test Item Value Reference Range Interpretation Comments Total Protein (test code = Total 7.3 6.4-8.4 Protein) [facility] CenterXfatuspZLBARAXPRI3132-89-73 07:07:00 Test Item Value Reference Range Interpretation Comments Platelet (test code = Platelet) 345 133-450 [facility] CenterFsiyvxwLIKVESAOKL5847-96-21 07:07:00 Test Item Value Reference Range Interpretation Comments MPV (test code = MPV) 8.7 7.4-10.4 [place] 804948-05-06 07:07:00 Test Item Value Reference Range Interpretation Comments WBC (test code = WBC) 6.9 3.7-10.4 [place] 804948-05-06 07:07:00 Test Item Value Reference Range Interpretation Comments RBC (test code = RBC) 5.30 4.70-6.10 [facility] CenterGtdiqjpEGUABXEQLU4557-23-27 07:07:00 Test Item Value Reference Range Interpretation Comments MCHC (test code = MCHC) 32.8 32.0-36.0 [facility] CenterAfiugooGGVNYVXIAZ1910-91-31 07:07:00 Test Item Value Reference Range Interpretation Comments MCH (test code = MCH) 27.9 pg 27.0-31.0 [facility] CenterMzsdapnIVCQDNCFWR2209-55-06 07:07:00 Test Item Value Reference Range Interpretation Comments Hgb (test code = Hgb) 14.8 14.0-18.0 [facility] CenterAglkjecWXWJYNZIOM2237-43-75 07:07:00 Test Item Value Reference Range Interpretation Comments MCV (test code = MCV) 85.0 80.0-94.0 [facility] CenterDwvixtxAXUTINWEOR5892-11-68 07:07:00 Test Item Value Reference Range Interpretation Comments Hct (test code = Hct) 45.1 42.0-54.0 [facility] CenterIomdzleYNUFBUIILT2754-08-08 07:07:00 Test Item Value Reference Range Interpretation Comments RDW (test code = RDW) 17.5 11.5-14.5 [facility] CenterRhrpxijKXOKKAORFB6782-57-72 07:07:00 Test Item Value Reference Range Interpretation Comments Eosinophils # (test code 0.2 See_Comment [A utomated message] The = Eosinophils #) system whic h generated this result tra nsmitted reference range : <=0.5. The reference r boubacar was not used to int erpret this result as normal/abnormal . [facility] CenterWzjoudqPTGJUCNGAE5005-52-71 07:07:00 Test Item Value Reference Range Interpretation Comments Lymphocytes # (test code = Lymphocytes 2.0 1.0-5.5 #) [facility] CenterHwumfrgNPKTIARZAH6970-24-49 07:07:00 Test Item Value Reference Range Interpretation Comments Monocytes # (test code 0.7 See_Comment [Aut omated message] The = Monocytes #) system which generated this result tra nsmitted reference range : <=0.8. The reference r boubacar was not used to int erpret this result as normal/abnormal . [facility] CenterOvjbfjxOSHWLLBYMC8424-85-39 07:07:00 Test Item Value Reference Range Interpretation Comments Eosinophils (test code = 2.4 See_Comment [A utomated message] The Eosinophils) system which ge nerated this result tra nsmitted reference range : <=4.0. The reference r boubacar was not used to int erpret this result as normal/abnormal . [facility] CenterGanhhjlXLMWKOPFLH8370-44-87 07:07:00 Test Item Value Reference Range Interpretation Comments Basophils (test code = 0.6 See_Comment [Aut omated message] The Basophils) system which ge nerated this result tra nsmitted reference range : <=1.0. The reference r boubacar was not used to int erpret this result as normal/abnormal . [facility] CenterLohbvqsBZGTAIJTOA2383-78-61 07:07:00 Test Item Value Reference Range Interpretation Comments Segs-Bands # (test code = Segs-Bands #) 4.0 1.5-8.1 [facility] CenterUcddtykOQMHXHBRWW1021-22-89 07:07:00 Test Item Value Reference Range Interpretation Comments Monocytes (test code = Monocytes) 10.4 2.0-12.0 [facility] CenterAgfpchyBJBRJNLUQE2580-64-45 07:07:00 Test Item Value Reference Range Interpretation Comments RBC Morph (test code = Normal (11/17/17 2:07 AM) RBC Morph) [facility] CenterZzwczgfLNFSTWOLDN1546-04-14 07:07:00 Test Item Value Reference Range Interpretation Comments Segs (test code = Segs) 58.1 45.0-75.0 [facility] CenterYneyumfJAFNITHYPM2114-37-21 07:07:00 Test Item Value Reference Range Interpretation Comments Plt Morph (test code = Normal (11/17/17 2:07 AM) Plt Morph) [facility] CenterYywvhhtVVPXJOUONC2154-55-19 07:07:00 Test Item Value Reference Range Interpretation Comments Lymphocytes (test code = Lymphocytes) 28.5 20.0-40.0 [facility]2018-05-06 07:07:00 Test Item Value Reference Range Interpretation Comments Glucose Lvl (test code = Glucose Lvl) 74 70-99 [facility]2018-05-06 07:07:00 Test Item Value Reference Range Interpretation Comments BUN (test code = BUN) 12 7-22 [facility]2018-05-06 07:07:00 Test Item Value Reference Range Interpretation Comments Creatinine Lvl (test code = Creatinine 0.75 0.50-1.40 Lvl) [facility]2018-05-06 07:07:00 Test Item Value Reference Range Interpretation Comments eGFR (test code = eGFR) 140 [facility]2018-05-06 07:07:00 Test Item Value Reference Range Interpretation Comments Albumin Lvl (test code = Albumin Lvl) 2.9 3.5-5.0 [facility]2018-05-06 07:07:00 Test Item Value Reference Range Interpretation Comments Globulin (test code = Globulin) 4.4 2.7-4.2 [place] 211048-05-06 07:07:00 Test Item Value Reference Range Interpretation Comments A/G Ratio (test code = A/G Ratio) 0.7 1 0.7-1.6 [place] 211048-05-06 07:07:00 Test Item Value Reference Range Interpretation Comments Bili Total (test code = Bili Total) 0.4 0.2-1.3 [place] [address]-05-06 07:07:00 Test Item Value Reference Range Interpretation Comments Alk Phos (test code = Alk Phos) 71 39-136 [place] 211048-05-06 07:07:00 Test Item Value Reference Range Interpretation Comments AST (test code = AST) 15 See_Comment [Auto mated message] The system which ge nerated this result transmit lester reference range : <=37. The reference range was not used to interpr et this result as dany l/abnormal. [place] [address]-05-06 07:07:00 Test Item Value Reference Range Interpretation Comments ALT (test code = ALT) 28 See_Comment [Auto mated message] The system which ge nerated this result transmit lester reference range : <=65. The reference range was not used to interpr et this result as dany l/abnormal. [place] 211048-05-06 07:07:00 Test Item Value Reference Range Interpretation Comments Potassium Lvl (test code = Potassium 4.4 3.5-5.1 Lvl) [facility]2018-05-06 07:07:00 Test Item Value Reference Range Interpretation Comments Sodium Lvl (test code = Sodium Lvl) 147 135-145 [place] 211048-05-06 07:07:00 Test Item Value Reference Range Interpretation Comments CO2 (test code = CO2) 25 24-32 [place] 211048-05-06 07:07:00 Test Item Value Reference Range Interpretation Comments Chloride Lvl (test code = Chloride Lvl) 114 95-109 [place] 211048-05-06 07:07:00 Test Item Value Reference Range Interpretation Comments B/C Ratio (test code = B/C Ratio) 16 1 6-25 [place] 211048-05-06 07:07:00 Test Item Value Reference Range Interpretation Comments Calcium Lvl (test code = Calcium Lvl) 8.7 8.5-10.5 [facility] XQEAR1842-39-93 07:07:00 Test Item Value Reference Range Interpretation Comments AGAP (test code = AGAP) 12.4 10.0-20.0 [facility]2018-05-06 07:07:00 Test Item Value Reference Range Interpretation Comments Total Protein (test code = Total 7.3 6.4-8.4 Protein) [facility] CenterImgokuwMHWTKNDYME2386-02-05 07:07:00 Test Item Value Reference Range Interpretation Comments Platelet (test code = Platelet) 345 133-450 [facility] CenterTtjwglyANSGXUTASH9311-76-25 07:07:00 Test Item Value Reference Range Interpretation Comments MPV (test code = MPV) 8.7 7.4-10.4 [facility] CenterJcvigknSDHFGRZIHM1471-00-53 07:07:00 Test Item Value Reference Range Interpretation Comments WBC (test code = WBC) 6.9 3.7-10.4 [facility] CenterEpmjlnrWYZEMFCQQT2911-08-81 07:07:00 Test Item Value Reference Range Interpretation Comments RBC (test code = RBC) 5.30 4.70-6.10 [facility] CenterLwunsjnFMAJSOFJKO5060-45-07 07:07:00 Test Item Value Reference Range Interpretation Comments MCHC (test code = MCHC) 32.8 32.0-36.0 [facility] CenterGpnoytwVWGPKJIENL3086-28-10 07:07:00 Test Item Value Reference Range Interpretation Comments MCH (test code = MCH) 27.9 pg 27.0-31.0 [facility] CenterUckgpvkKIHUAQATJQ7404-85-72 07:07:00 Test Item Value Reference Range Interpretation Comments Hgb (test code = Hgb) 14.8 14.0-18.0 [facility] CenterLgkeunfRPKWLKSQJV3299-24-22 07:07:00 Test Item Value Reference Range Interpretation Comments MCV (test code = MCV) 85.0 80.0-94.0 [facility] CenterSrawmmqUHHUOEVNPP2211-57-97 07:07:00 Test Item Value Reference Range Interpretation Comments Hct (test code = Hct) 45.1 42.0-54.0 [place] 804948-05-06 07:07:00 Test Item Value Reference Range Interpretation Comments RDW (test code = RDW) 17.5 11.5-14.5 [facility] CenterVgykjqfFVWCMGAGKN6107-41-10 07:07:00 Test Item Value Reference Range Interpretation Comments Eosinophils # (test code 0.2 See_Comment [A utomated message] The = Eosinophils #) system whic h generated this result tra nsmitted reference range : <=0.5. The reference r boubacar was not used to int erpret this result as normal/abnormal . [facility] CenterFbgplzyFFRPJMKDBJ9288-27-76 07:07:00 Test Item Value Reference Range Interpretation Comments Lymphocytes # (test code = Lymphocytes 2.0 1.0-5.5 #) [facility] CenterMkpqsbzKTHMEMMXSI4885-25-27 07:07:00 Test Item Value Reference Range Interpretation Comments Monocytes # (test code 0.7 See_Comment [Aut omated message] The = Monocytes #) system which generated this result tra nsmitted reference range : <=0.8. The reference r boubacar was not used to int erpret this result as normal/abnormal . [facility] CenterQkprgkoBNIIRGOIDS4212-56-63 07:07:00 Test Item Value Reference Range Interpretation Comments Eosinophils (test code = 2.4 See_Comment [A utomated message] The Eosinophils) system which ge nerated this result tra nsmitted reference range : <=4.0. The reference r boubacar was not used to int erpret this result as normal/abnormal . [facility] CenterTmokuovRYQXQFEVGT7935-08-61 07:07:00 Test Item Value Reference Range Interpretation Comments Basophils (test code = 0.6 See_Comment [Aut omated message] The Basophils) system which ge nerated this result tra nsmitted reference range : <=1.0. The reference r boubacar was not used to int erpret this result as normal/abnormal . [facility] CenterRpgqbuhJHVUICDJSU6260-95-76 07:07:00 Test Item Value Reference Range Interpretation Comments Segs-Bands # (test code = Segs-Bands #) 4.0 1.5-8.1 [facility] CenterPfumwgsDPIYMDMRVP5822-92-88 07:07:00 Test Item Value Reference Range Interpretation Comments Monocytes (test code = Monocytes) 10.4 2.0-12.0 [facility] CenterBrnszqdXAXTPBBNTC5372-32-26 07:07:00 Test Item Value Reference Range Interpretation Comments RBC Morph (test code = Normal (11/17/17 2:07 AM) RBC Morph) [facility] CenterXspcfmjDHMAHBZFLD7734-80-48 07:07:00 Test Item Value Reference Range Interpretation Comments Segs (test code = Segs) 58.1 45.0-75.0 [facility] CenterJnordihHUDXGBVUFR1395-61-49 07:07:00 Test Item Value Reference Range Interpretation Comments Plt Morph (test code = Normal (11/17/17 2:07 AM) Plt Morph) [facility] CenterIfyutsgGHXDTYYVMF9617-33-07 07:07:00 Test Item Value Reference Range Interpretation Comments Lymphocytes (test code = Lymphocytes) 28.5 20.0-40.0 [facility]2018-05-06 07:07:00 Test Item Value Reference Range Interpretation Comments Glucose Lvl (test code = Glucose Lvl) 74 70-99 [facility]2018-05-06 07:07:00 Test Item Value Reference Range Interpretation Comments BUN (test code = BUN) 12 7-22 [facility]2018-05-06 07:07:00 Test Item Value Reference Range Interpretation Comments Creatinine Lvl (test code = Creatinine 0.75 0.50-1.40 Lvl) [facility]2018-05-06 07:07:00 Test Item Value Reference Range Interpretation Comments eGFR (test code = eGFR) 140 [facility]2018-05-06 07:07:00 Test Item Value Reference Range Interpretation Comments Albumin Lvl (test code = Albumin Lvl) 2.9 3.5-5.0 [facility]2018-05-06 07:07:00 Test Item Value Reference Range Interpretation Comments Globulin (test code = Globulin) 4.4 2.7-4.2 [facility]2018-05-06 07:07:00 Test Item Value Reference Range Interpretation Comments A/G Ratio (test code = A/G Ratio) 0.7 1 0.7-1.6 [facility]2018-05-06 07:07:00 Test Item Value Reference Range Interpretation Comments Bili Total (test code = Bili Total) 0.4 0.2-1.3 [facility]2018-05-06 07:07:00 Test Item Value Reference Range Interpretation Comments Alk Phos (test code = Alk Phos) 71 39-136 [facility]2018-05-06 07:07:00 Test Item Value Reference Range Interpretation Comments AST (test code = AST) 15 See_Comment [Auto mated message] The system which ge nerated this result transmit lester reference range : <=37. The reference range was not used to interpr et this result as dany l/abnormal. [facility]2018-05-06 07:07:00 Test Item Value Reference Range Interpretation Comments ALT (test code = ALT) 28 See_Comment [Auto mated message] The system which ge nerated this result transmit lester reference range : <=65. The reference range was not used to interpr et this result as dany l/abnormal. [place] 211048-05-06 07:07:00 Test Item Value Reference Range Interpretation Comments Potassium Lvl (test code = Potassium 4.4 3.5-5.1 Lvl) [facility]2018-05-06 07:07:00 Test Item Value Reference Range Interpretation Comments Sodium Lvl (test code = Sodium Lvl) 147 135-145 [place] 211048-05-06 07:07:00 Test Item Value Reference Range Interpretation Comments CO2 (test code = CO2) 25 24-32 [place] 211048-05-06 07:07:00 Test Item Value Reference Range Interpretation Comments Chloride Lvl (test code = Chloride Lvl) 114 95-109 [facility]2018-05-06 07:07:00 Test Item Value Reference Range Interpretation Comments B/C Ratio (test code = B/C Ratio) 16 1 6-25 [place] 211048-05-06 07:07:00 Test Item Value Reference Range Interpretation Comments Calcium Lvl (test code = Calcium Lvl) 8.7 8.5-10.5 [place] 211048-05-06 07:07:00 Test Item Value Reference Range Interpretation Comments AGAP (test code = AGAP) 12.4 10.0-20.0 [place] 211048-05-06 07:07:00 Test Item Value Reference Range Interpretation Comments Total Protein (test code = Total 7.3 6.4-8.4 Protein) [facility] CenterQthlzetPJVPIFQPDB5677-98-61 07:07:00 Test Item Value Reference Range Interpretation Comments Platelet (test code = Platelet) 345 133-450 [place] 804948-05-06 07:07:00 Test Item Value Reference Range Interpretation Comments MPV (test code = MPV) 8.7 7.4-10.4 [facility] CenterZagebmoDRRKICEOIY6257-53-61 07:07:00 Test Item Value Reference Range Interpretation Comments WBC (test code = WBC) 6.9 3.7-10.4 [facility] CenterZbvyjhzXSSYHQGXOB4877-05-82 07:07:00 Test Item Value Reference Range Interpretation Comments RBC (test code = RBC) 5.30 4.70-6.10 [facility] CenterNftvsvtZAQEKCTXBP8707-49-64 07:07:00 Test Item Value Reference Range Interpretation Comments MCHC (test code = MCHC) 32.8 32.0-36.0 [facility] CenterBedqlxjPLNBLFCLIJ5166-10-12 07:07:00 Test Item Value Reference Range Interpretation Comments MCH (test code = MCH) 27.9 pg 27.0-31.0 [facility] CenterYoqhajpYQMGOSGVIZ4067-39-28 07:07:00 Test Item Value Reference Range Interpretation Comments Hgb (test code = Hgb) 14.8 14.0-18.0 [facility] CenterHeedveeAPRMOHRJHE0063-34-17 07:07:00 Test Item Value Reference Range Interpretation Comments MCV (test code = MCV) 85.0 80.0-94.0 [facility] CenterDdlarxmKHJJRVKRKM5476-43-38 07:07:00 Test Item Value Reference Range Interpretation Comments Hct (test code = Hct) 45.1 42.0-54.0 [facility] CenterKigofqyHQTLYACODW2074-36-50 07:07:00 Test Item Value Reference Range Interpretation Comments RDW (test code = RDW) 17.5 11.5-14.5 [facility] CenterVefayacUNADLRBRPJ2877-69-48 07:07:00 Test Item Value Reference Range Interpretation Comments Eosinophils # (test code 0.2 See_Comment [A utomated message] The = Eosinophils #) system whic h generated this result tra nsmitted reference range : <=0.5. The reference r boubacar was not used to int erpret this result as normal/abnormal . [facility] CenterAyjjwqlCJXKLZQNIY9868-34-69 07:07:00 Test Item Value Reference Range Interpretation Comments Lymphocytes # (test code = Lymphocytes 2.0 1.0-5.5 #) [facility] CenterKtytexgTPKDFXRJLJ5202-80-43 07:07:00 Test Item Value Reference Range Interpretation Comments Monocytes # (test code 0.7 See_Comment [Aut omated message] The = Monocytes #) system which generated this result tra nsmitted reference range : <=0.8. The reference r boubacar was not used to int erpret this result as normal/abnormal . [facility] CenterAtbvzrxJSFKMVFMRI6881-46-97 07:07:00 Test Item Value Reference Range Interpretation Comments Eosinophils (test code = 2.4 See_Comment [A utomated message] The Eosinophils) system which ge nerated this result tra nsmitted reference range : <=4.0. The reference r boubacar was not used to int erpret this result as normal/abnormal . [facility] CenterYixyprtZVDOVHOLTZ1456-44-28 07:07:00 Test Item Value Reference Range Interpretation Comments Basophils (test code = 0.6 See_Comment [Aut omated message] The Basophils) system which ge nerated this result tra nsmitted reference range : <=1.0. The reference r boubacar was not used to int erpret this result as normal/abnormal . [facility] CenterDzyppzjSGCRJONHKS2741-79-21 07:07:00 Test Item Value Reference Range Interpretation Comments Segs-Bands # (test code = Segs-Bands #) 4.0 1.5-8.1 [facility] CenterLbawxnfNPKTMMEOHE2182-82-34 07:07:00 Test Item Value Reference Range Interpretation Comments Monocytes (test code = Monocytes) 10.4 2.0-12.0 [facility] Cent[id number] 07:07:00 Test Item Value Reference Range Interpretation Comments RBC Morph (test code = Normal (11/17/17 2:07 AM) RBC Morph) [facility] CenterJsuebplNSNMENQIBK2513-10-18 07:07:00 Test Item Value Reference Range Interpretation Comments Segs (test code = Segs) 58.1 45.0-75.0 [facility] CenterFqwkxfyRQEGXYJSAY7817-96-48 07:07:00 Test Item Value Reference Range Interpretation Comments Plt Morph (test code = Normal (11/17/17 2:07 AM) Plt Morph) [facility] CenterIpuembaVXUVLQJIDF8897-53-60 07:07:00 Test Item Value Reference Range Interpretation Comments Lymphocytes (test code = Lymphocytes) 28.5 20.0-40.0 [facility] CenterFhnwxzpMYXGNLDLRI2353-09-42 16:07:00 Test Item Value Reference Range Interpretation Comments Basophils # (test code 0.1 See_Comment [Aut omated message] The = Basophils #) system which generated this result tra nsmitted reference range : <=0.2. The reference r boubacar was not used to int erpret this result as normal/abnormal . [facility] CenterKzddiirAHPROMOPKV0532-47-08 16:07:00 Test Item Value Reference Range Interpretation Comments Polychrom (test code = Moderate *ABN*(11/16/17 Polychrom) 11:07 AM) [facility] CenterWgvetgdPKCINPSCEM7052-92-25 16:07:00 Test Item Value Reference Range Interpretation Comments Basophils # (test code 0.1 See_Comment [Aut omated message] The = Basophils #) system which generated this result tra nsmitted reference range : <=0.2. The reference r boubacar was not used to int erpret this result as normal/abnormal . [facility] CenterIayaopxVAGHRYYLER3664-93-84 16:07:00 Test Item Value Reference Range Interpretation Comments Polychrom (test code = Moderate *ABN*(11/16/17 Polychrom) 11:07 AM) [facility] CenterIsyuoxrTEQHKLYYLH0913-44-20 16:07:00 Test Item Value Reference Range Interpretation Comments Basophils # (test code 0.1 See_Comment [Aut omated message] The = Basophils #) system which generated this result tra nsmitted reference range : <=0.2. The reference r boubacar was not used to int erpret this result as normal/abnormal . [facility] CenterEtzoybpANEUSMGPVN6829-01-01 16:07:00 Test Item Value Reference Range Interpretation Comments Polychrom (test code = Moderate *ABN*(11/16/17 Polychrom) 11:07 AM) [facility]ips[facility]wGHTFDOQBIE8228-09-49 06:43:00 Test Item Value Reference Range Interpretation Comments Vanco Tr TND (test code = Vanco Tr TND) * [facility]bdsmawHLUTKSCFDT6963-70-12 06:43:00 Test Item Value Reference Range Interpretation Comments Vanco Tr (test code = Vanco Tr) 22.3 [facility] HospitalQvzbzrxRKTKOEPMPO5707-69-54 06:43:00 Test Item Value Reference Range Interpretation Comments Vanco Tr TND (test code = Vanco Tr TND) * [place] [id number] 06:43:00 Test Item Value Reference Range Interpretation Comments Vanco Tr (test code = Vanco Tr) 22.3 [place] [id number] 06:43:00 Test Item Value Reference Range Interpretation Comments Vanco Tr TND (test code = Vanco Tr TND) * [place] [id number] 06:43:00 Test Item Value Reference Range Interpretation Comments Vanco Tr (test code = Vanco Tr) 22.3 [facility]2018-05-04 11:45:00 Test Item Value Reference Range Interpretation Comments Magnesium Lvl (test code = Magnesium 2.3 1.8-2.4 Lvl) [facility]2018-05-04 11:45:00 Test Item Value Reference Range Interpretation Comments Phosphorus (test code = Phosphorus) 3.5 2.5-4.5 [facility] CenterMujhboqMYCANXDRLG6334-82-42 11:45:00 Test Item Value Reference Range Interpretation Comments PT (test code = PT) 14.0 s 12.0-14.7 [facility] CenterBwzzoheQULMNJJKNM6578-27-27 11:45:00 Test Item Value Reference Range Interpretation Comments PTT (test code = PTT) 37.6 s 22.9-35.8 [facility] CenterGjxkazsYQYWIOUVCF1343-90-02 11:45:00 Test Item Value Reference Range Interpretation Comments INR (test code = INR) 1.08 1 0.85-1.17 [facility] CenterDmcfgcuBXGTHGKIZT7830-37-93 11:45:00 Test Item Value Reference Range Interpretation Comments C-REACTIVE PROTEIN (test code = 13.1 C-REACTIVE PROTEIN) [facility] CenterHwwhnkpFFAFUJJYSZ6977-81-41 11:45:00 Test Item Value Reference Range Interpretation Comments Prealbumin (test code = Prealbumin) 25.2 18.0-45.0 [facility]2018-05-04 11:45:00 Test Item Value Reference Range Interpretation Comments Magnesium Lvl (test code = Magnesium 2.3 1.8-2.4 Lvl) [facility]2018-05-04 11:45:00 Test Item Value Reference Range Interpretation Comments Phosphorus (test code = Phosphorus) 3.5 2.5-4.5 [facility] CenterNzpmmfvYSRWEKXKRP7365-22-77 11:45:00 Test Item Value Reference Range Interpretation Comments PT (test code = PT) 14.0 s 12.0-14.7 [facility] CenterPostzgqJHCFNFXPKT7272-30-14 11:45:00 Test Item Value Reference Range Interpretation Comments PTT (test code = PTT) 37.6 s 22.9-35.8 [facility] CenterZynbpnfXPYFZZQXFZ8065-97-44 11:45:00 Test Item Value Reference Range Interpretation Comments INR (test code = INR) 1.08 1 0.85-1.17 [facility] CenterMpokqcaQYWVCYZXMA7048-78-80 11:45:00 Test Item Value Reference Range Interpretation Comments C-REACTIVE PROTEIN (test code = 13.1 C-REACTIVE PROTEIN) [facility] CenterMiomulvJAMVVNCTDX9004-96-29 11:45:00 Test Item Value Reference Range Interpretation Comments Prealbumin (test code = Prealbumin) 25.2 18.0-45.0 [facility]2018-05-04 11:45:00 Test Item Value Reference Range Interpretation Comments Magnesium Lvl (test code = Magnesium 2.3 1.8-2.4 Lvl) [facility]2018-05-04 11:45:00 Test Item Value Reference Range Interpretation Comments Phosphorus (test code = Phosphorus) 3.5 2.5-4.5 [facility] CenterClxvcwxETZVHPVGHP5203-74-08 11:45:00 Test Item Value Reference Range Interpretation Comments PT (test code = PT) 14.0 s 12.0-14.7 [facility] CenterMapykquFRWAFAITWH6775-79-60 11:45:00 Test Item Value Reference Range Interpretation Comments PTT (test code = PTT) 37.6 s 22.9-35.8 [facility] CenterGodiboxXURJSQSQZS6011-87-08 11:45:00 Test Item Value Reference Range Interpretation Comments INR (test code = INR) 1.08 1 0.85-1.17 [facility] CenterJhjifcqXLCLHPNCVT9917-63-58 11:45:00 Test Item Value Reference Range Interpretation Comments C-REACTIVE PROTEIN (test code = 13.1 C-REACTIVE PROTEIN) [facility] CenterQwghvipLLRFLREAPE0141-98-46 11:45:00 Test Item Value Reference Range Interpretation Comments Prealbumin (test code = Prealbumin) 25.2 18.0-45.0 [facility]2018-05-04 03:06:00 Test Item Value Reference Range Interpretation Comments Lactic Acid Lvl (test code = Lactic 0.9 0.5-2.2 Acid Lvl) [facility] CenterTharuflGWZPJQSCNV9085-51-79 03:06:00 Test Item Value Reference Range Interpretation Comments Sed Rate (test code = 5 See_Comment [Auto mated message] The Sed Rate) system which ge nerated this result transmit lester reference range : <=15. The reference range was not used to interpr et this result as dany l/abnormal. [facility] CenterJommdwtCDVYEODNHP3566-56-68 03:06:00 Test Item Value Reference Range Interpretation Comments C-REACTIVE PROTEIN (test code = 15.8 C-REACTIVE PROTEIN) [facility]2018-05-04 03:06:00 Test Item Value Reference Range Interpretation Comments Lactic Acid Lvl (test code = Lactic 0.9 0.5-2.2 Acid Lvl) [facility] CenterEihvmsqFAOWHNUITO3530-08-41 03:06:00 Test Item Value Reference Range Interpretation Comments Sed Rate (test code = 5 See_Comment [Auto mated message] The Sed Rate) system which ge nerated this result transmit lester reference range : <=15. The reference range was not used to interpr et this result as dany l/abnormal. [facility] CenterUbncerqAPSHHJJFDI7704-83-16 03:06:00 Test Item Value Reference Range Interpretation Comments C-REACTIVE PROTEIN (test code = 15.8 C-REACTIVE PROTEIN) [facility]2018-05-04 03:06:00 Test Item Value Reference Range Interpretation Comments Lactic Acid Lvl (test code = Lactic 0.9 0.5-2.2 Acid Lvl) [facility] CenterMibqfhmQZAVHWYBKX4301-50-34 03:06:00 Test Item Value Reference Range Interpretation Comments Sed Rate (test code = 5 See_Comment [Auto mated message] The Sed Rate) system which ge nerated this result transmit lester reference range : <=15. The reference range was not used to interpr et this result as dany l/abnormal. [facility] CenterBxnrtjpMFUICGZKOD8686-10-60 03:06:00 Test Item Value Reference Range Interpretation Comments C-REACTIVE PROTEIN (test code = 15.8 C-REACTIVE PROTEIN) [facility] CenterRybopjpUJBVLPRZHD8906-98-14 00:44:00 Test Item Value Reference Range Interpretation Comments PT (test code = PT) 13.0 s 12.0-14.7 [facility] CenterJqnmmtnQMENQAANCR0531-84-52 00:44:00 Test Item Value Reference Range Interpretation Comments INR (test code = INR) 0.98 1 0.85-1.17 [facility] CenterWnislkxKLEQSJCORN1689-90-08 00:44:00 Test Item Value Reference Range Interpretation Comments PTT (test code = PTT) 33.2 s 22.9-35.8 [facility] CenterGtudoqvBONLAHZLBN1359-09-38 00:44:00 Test Item Value Reference Range Interpretation Comments PT (test code = PT) 13.0 s 12.0-14.7 [facility] CenterZoxmndcXSMQZXYOBE9822-58-34 00:44:00 Test Item Value Reference Range Interpretation Comments INR (test code = INR) 0.98 1 0.85-1.17 [facility] CenterWarmqjgNRUCOYFDSQ7356-69-23 00:44:00 Test Item Value Reference Range Interpretation Comments PTT (test code = PTT) 33.2 s 22.9-35.8 [facility] CenterPzdbjfkWEGHCDCSAB6757-82-52 00:44:00 Test Item Value Reference Range Interpretation Comments PT (test code = PT) 13.0 s 12.0-14.7 [facility] CenterSvhrmxkSYEQXCYFZY5938-06-16 00:44:00 Test Item Value Reference Range Interpretation Comments INR (test code = INR) 0.98 1 0.85-1.17 [facility] CenterDaubsxoFOXKYTTJEM7313-19-08 00:44:00 Test Item Value Reference Range Interpretation Comments PTT (test code = PTT) 33.2 s 22.9-35.8 [facility] [employer] [id number] 23:51:00 Test Item Value Reference Range Interpretation Comments Antibody Scrn (test Negative (11/14/17 6:51 code = Antibody Scrn) PM) [facility] [employer] [id number] 23:51:00 Test Item Value Reference Range Interpretation Comments ABO/Rh (test code = ABO/Rh) AB POS [facility] [employer] [id number] 23:51:00 Test Item Value Reference Range Interpretation Comments Antibody Scrn (test Negative (11/14/17 6:51 code = Antibody Scrn) PM) [facility] [id number] 23:51:00 Test Item Value Reference Range Interpretation Comments ABO/Rh (test code = ABO/Rh) AB POS [facility] [id number] 23:51:00 Test Item Value Reference Range Interpretation Comments Antibody Scrn (test Negative (11/14/17 6:51 code = Antibody Scrn) PM) [facility] [id number] 23:51:00 Test Item Value Reference Range Interpretation Comments ABO/Rh (test code = ABO/Rh) AB POS [facility] AND [id number] 23:35:00 Test Item Value Reference Range Interpretation Comments UA Urobilinogen (test code = UA 0.2 0.1-1.0 Urobilinogen) [facility] AND [id number] 23:35:00 Test Item Value Reference Range Interpretation Comments UA Nitrite (test code Negative (11/14/17 6:35 = UA Nitrite) PM) [facility] AND [id number] 23:35:00 Test Item Value Reference Range Interpretation Comments UA Glucose (test code Negative (11/14/17 6:35 = UA Glucose) PM) [facility] AND [id number] 23:35:00 Test Item Value Reference Range Interpretation Comments UA Ketones (test code Negative *NA*(11/14/17 = UA Ketones) 6:35 PM) [facility] AND [id number] 23:35:00 Test Item Value Reference Range Interpretation Comments UA Bili (test code = Negative *NA*(11/14/17 UA Bili) 6:35 PM) [facility] AND [id number] 23:35:00 Test Item Value Reference Range Interpretation Comments UA Blood (test code = Trace *ABN*(11/14/17 UA Blood) 6:35 PM) [facility] AND [id number] 23:35:00 Test Item Value Reference Range Interpretation Comments UA Leuk Est (test code Small *ABN*(11/14/17 6:35 = UA Leuk Est) PM) [facility] AND [id number] 23:35:00 Test Item Value Reference Range Interpretation Comments UA Spec Grav (test code = UA Spec 1.020 1 Grav) [facility] AND [id number] 23:35:00 Test Item Value Reference Range Interpretation Comments UA pH (test code = UA pH) 6.0 1 5.0-8.0 [facility] [id number] 23:35:00 Test Item Value Reference Range Interpretation Comments UA Color (test code = Yellow *NA*(11/14/17 6:35 UA Color) PM) [facility] AND [id number] 23:35:00 Test Item Value Reference Range Interpretation Comments UA Protein (test code = Trace *ABN*(11/14/17 UA Protein) 6:35 PM) [facility] AND [id number] 23:35:00 Test Item Value Reference Range Interpretation Comments UA Turbidity (test code Slight Cloudy (11/14/17 = UA Turbidity) 6:35 PM) [facility] AND [id number] 23:35:00 Test Item Value Reference Range Interpretation Comments UA Hyal Cast 0-2 (11/14/17 6:35 See_Comment [Automated message] (test code = UA PM) The system w [facility] Hyal Cast) generated this result transmitted ref erence range: <=2. The reference range was not used to int erpret this result as normal/abnormal . [facility] AND [id number] 23:35:00 Test Item Value Reference Range Interpretation Comments UA Bacteria (test code = UA Occasional /HPF Bacteria) [facility] AND [id number] 23:35:00 Test Item Value Reference Range Interpretation Comments UA RBC (test code 11-20 /HPF See_Comment [Automate d message] The = UA RBC) system which ge nerated this result tra nsmitted reference range : <=2. The reference range was not used to interpr et this result as normal/abnormal . [facility] AND [id number] 23:35:00 Test Item Value Reference Range Interpretation Comments UA Sq Epi (test code = UA Sq Occasional /LPF Epi) [facility] AND [id number] 23:35:00 Test Item Value Reference Range Interpretation Comments UA WBC (test code = UA WBC) 51-100 /HPF [facility] AND [id number] 23:35:00 Test Item Value Reference Range Interpretation Comments UA Urobilinogen (test code = UA 0.2 0.1-1.0 Urobilinogen) [facility] AND [id number] 23:35:00 Test Item Value Reference Range Interpretation Comments UA Nitrite (test code Negative (11/14/17 6:35 = UA Nitrite) PM) [facility] AND [id number] 23:35:00 Test Item Value Reference Range Interpretation Comments UA Glucose (test code Negative (11/14/17 6:35 = UA Glucose) PM) [facility] AND [id number] 23:35:00 Test Item Value Reference Range Interpretation Comments UA Ketones (test code Negative *NA*(11/14/17 = UA Ketones) 6:35 PM) [facility] AND [id number] 23:35:00 Test Item Value Reference Range Interpretation Comments UA Bili (test code = Negative *NA*(11/14/17 UA Bili) 6:35 PM) [facility] AND [id number] 23:35:00 Test Item Value Reference Range Interpretation Comments UA Blood (test code = Trace *ABN*(11/14/17 UA Blood) 6:35 PM) [facility] AND [id number] 23:35:00 Test Item Value Reference Range Interpretation Comments UA Leuk Est (test code Small *ABN*(11/14/17 6:35 = UA Leuk Est) PM) [facility] AND [id number] 23:35:00 Test Item Value Reference Range Interpretation Comments UA Spec Grav (test code = UA Spec 1.020 1 Grav) [facility] AND [id number] 23:35:00 Test Item Value Reference Range Interpretation Comments UA pH (test code = UA pH) 6.0 1 5.0-8.0 [facility] AND [id number] 23:35:00 Test Item Value Reference Range Interpretation Comments UA Color (test code = Yellow *NA*(11/14/17 6:35 UA Color) PM) [facility] AND [id number] 23:35:00 Test Item Value Reference Range Interpretation Comments UA Protein (test code = Trace *ABN*(11/14/17 UA Protein) 6:35 PM) [facility] AND [id number] 23:35:00 Test Item Value Reference Range Interpretation Comments UA Turbidity (test code Slight Cloudy (11/14/17 = UA Turbidity) 6:35 PM) [facility] AND [id number] 23:35:00 Test Item Value Reference Range Interpretation Comments UA Hyal Cast 0-2 (11/14/17 6:35 See_Comment [Automated message] (test code = UA PM) The system w [facility] Hyal Cast) generated this result transmitted ref erence range: <=2. The reference range was not used to int erpret this result as normal/abnormal . [facility] AND [id number] 23:35:00 Test Item Value Reference Range Interpretation Comments UA Bacteria (test code = UA Occasional /HPF Bacteria) [facility] AND [id number] 23:35:00 Test Item Value Reference Range Interpretation Comments UA RBC (test code 11-20 /HPF See_Comment [Automate d message] The = UA RBC) system which ge nerated this result tra nsmitted reference range : <=2. The reference range was not used to interpr et this result as normal/abnormal . [facility] AND [id number] 23:35:00 Test Item Value Reference Range Interpretation Comments UA Sq Epi (test code = UA Sq Occasional /LPF Epi) [facility] AND [id number] 23:35:00 Test Item Value Reference Range Interpretation Comments UA WBC (test code = UA WBC) 51-100 /HPF [facility] AND [id number] 23:35:00 Test Item Value Reference Range Interpretation Comments UA Urobilinogen (test code = UA 0.2 0.1-1.0 Urobilinogen) [facility] AND [id number] 23:35:00 Test Item Value Reference Range Interpretation Comments UA Nitrite (test code Negative (11/14/17 6:35 = UA Nitrite) PM) [facility] AND [id number] 23:35:00 Test Item Value Reference Range Interpretation Comments UA Glucose (test code Negative (11/14/17 6:35 = UA Glucose) PM) [facility] AND [id number] 23:35:00 Test Item Value Reference Range Interpretation Comments UA Ketones (test code Negative *NA*(11/14/17 = UA Ketones) 6:35 PM) [facility] AND [id number] 23:35:00 Test Item Value Reference Range Interpretation Comments UA Bili (test code = Negative *NA*(11/14/17 UA Bili) 6:35 PM) [facility] AND [id number] 23:35:00 Test Item Value Reference Range Interpretation Comments UA Blood (test code = Trace *ABN*(11/14/17 UA Blood) 6:35 PM) [facility] AND [id number] 23:35:00 Test Item Value Reference Range Interpretation Comments UA Leuk Est (test code Small *ABN*(11/14/17 6:35 = UA Leuk Est) PM) [facility] AND [id number] 23:35:00 Test Item Value Reference Range Interpretation Comments UA Spec Grav (test code = UA Spec 1.020 1 Grav) [facility] AND [id number] 23:35:00 Test Item Value Reference Range Interpretation Comments UA pH (test code = UA pH) 6.0 1 5.0-8.0 [facility] AND [id number] 23:35:00 Test Item Value Reference Range Interpretation Comments UA Color (test code = Yellow *NA*(11/14/17 6:35 UA Color) PM) [facility] AND [id number] 23:35:00 Test Item Value Reference Range Interpretation Comments UA Protein (test code = Trace *ABN*(11/14/17 UA Protein) 6:35 PM) [facility] AND [id number] 23:35:00 Test Item Value Reference Range Interpretation Comments UA Turbidity (test code Slight Cloudy (11/14/17 = UA Turbidity) 6:35 PM) [facility] AND [id number] 23:35:00 Test Item Value Reference Range Interpretation Comments UA Hyal Cast 0-2 (11/14/17 6:35 See_Comment [Automated message] (test code = UA PM) The system w [facility] Hyal Cast) generated this result transmitted ref erence range: <=2. The reference range was not used to int erpret this result as normal/abnormal . [facility] AND [id number] 23:35:00 Test Item Value Reference Range Interpretation Comments UA Bacteria (test code = UA Occasional /HPF Bacteria) [facility] AND [id number] 23:35:00 Test Item Value Reference Range Interpretation Comments UA RBC (test code 11-20 /HPF See_Comment [Automate d message] The = UA RBC) system which ge nerated this result tra nsmitted reference range : <=2. The reference range was not used to interpr et this result as normal/abnormal . [facility] AND [id number] 23:35:00 Test Item Value Reference Range Interpretation Comments UA Sq Epi (test code = UA Sq Occasional /LPF Epi) [facility] AND [id number] 23:35:00 Test Item Value Reference Range Interpretation Comments UA WBC (test code = UA WBC) 51-100 /HPF [facility] [id number] 23:20:00 Test Item Value Reference Range Interpretation Comments Basophils # (test code 0.1 See_Comment [Aut omated message] The = Basophils #) system which generated this result tra nsmitted reference range : <=0.2. The reference r boubacar was not used to int erpret this result as normal/abnormal . [facility] Cent[id number] 23:20:00 Test Item Value Reference Range Interpretation Comments Polychrom (test code = Polychrom) Slight [facility] [id number] 23:20:00 Test Item Value Reference Range Interpretation Comments Plt Morph (test code = Normal (11/14/17 6:20 PM) Plt Morph) [facility] CenterIihadcuJCBMQWRPKR4050-15-10 23:20:00 Test Item Value Reference Range Interpretation Comments Basophils # (test code 0.1 See_Comment [Aut omated message] The = Basophils #) system which generated this result tra nsmitted reference range : <=0.2. The reference r boubacar was not used to int erpret this result as normal/abnormal . [facility] [id number] 23:20:00 Test Item Value Reference Range Interpretation Comments Polychrom (test code = Polychrom) Slight [facility] C[id number] 23:20:00 Test Item Value Reference Range Interpretation Comments Plt Morph (test code = Normal (18 6:20 PM) Plt Morph) [facility] CenterIdqcddgEGHIVVXTYL2672-06-98 23:20:00 Test Item Value Reference Range Interpretation Comments Basophils # (test code 0.1 See_Comment [Aut omated message] The = Basophils #) system which generated this result tra nsmitted reference range : <=0.2. The reference r boubacar was not used to int erpret this result as normal/abnormal . [facility] [id number] 23:20:00 Test Item Value Reference Range Interpretation Comments Polychrom (test code = Polychrom) Slight [facility] [id number] 23:20:00 Test Item Value Reference Range Interpretation Comments Plt Morph (test code = Normal (11/14/17 6:20 PM) Plt Morph) [facility] [id number] 16:22:00 Test Item Value Reference Range Interpretation Comments CULTURE (BEAKER) (test No growth in 5 days code = 1095) BLOOD [id number] 16:22:00 Test Item Value Reference Range Interpretation [...] Normal 762) CBC W/PLT COUNT & AUTO [id number] 22:28:00 Test Item Value Reference Range Interpretation [...] K/ L 0.00-0.20 (test code = 417) [id number] METABOLIC [id number] 11:11:00 Test Item Value Reference Range Interpretation [...] NOT APPLICABLE FOR DIALYSIS PATIEN TS. URINE [id number] 09:56:00 Test Item Value Reference Range Interpretation Comments CULTURE (BEAKER) (test <10,000 col/mL skin code = 1095) marilee COMPREHENSIVE METABOLIC [id number] 08:49:00 Test Item Value Reference Range Interpretation [...] PATIEN TS. CBC W/PLT COUNT & AUTO [id number] 08:46:00 Test Item Value Reference Range Interpretation [...] 0.00-0.20 (test code = 417) 0.00URINALYSIS W/ [id number] 20:36:00 Test Item Value Reference Range Interpretation [...] 520) 182 /HPF SOURCE(BEAKER) (test code = 0875) BASIC METABOLIC [id number] 17:00:00 Test Item Value Reference Range Interpretation [...] Specimen slightly ictericCBC W/PLT COUNT & AUTO [id number] 12:18:00 Test Item Value Reference Range Interpretation [...]
[2022-06-27 17:29] LABS: Absolute Lymphocytes (CBC) 1.4 K/uL (0.7-4.9); Hematocrit 47.4 % (39.6-49.0); Lymphocytes % 16.1 % (15.3-44.8); MCV 84.6 fL (80-100); MPV 7.6 fL (7.6-11.3)
[2022-06-27] MEDS ORDERED: PROMETHAZINE INJ 25 MG/ML AMP ONE (17:39)
[2022-06-27] MEDS ORDERED: HYDROMORPHONE HCL 1 MG/ML INJ ONE ×2 (17:39→18:48)
[2022-06-27 17:48] LABS: Protime INR 1.11
[2022-06-27 18:08] LABS: Albumin 3.2 g/dL (3.4-5.0); Bilirubin Direct 0.2 mg/dL (0-0.2); Bilirubin Total 0.6 mg/dL (0.2-1.0); Potassium 3.5 mmol/L (3.5-5.1); Protein, Total 7.8 g/dL (6.4-8.2); Troponin High Sensitivity 4.3 pg/mL (<58.9)
[2022-06-27 18:10] LABS: SARS-COV-2 RT PCR NEGATIVE (NEGATIVE)
[2022-06-27 18:15] LABS: Magnesium 1.4 mg/dL (1.6-2.4)
--- NOTE | 2022-06-27 18:37 | RAD REPORT ---
EXAM DESCRIPTION: CT - Chest Abd Pelvis Wo Con - 06/27/2022 6:25 pm CLINICAL HISTORY: Chest and abdominal pain. Diarrhea COMPARISON: CT chest 2017 CT abdomen May 2022 TECHNIQUE: Computed axial tomography of the chest, abdomen and pelvis was obtained. Oral contrast wa s given. IV contrast was not requested. All CT scans are performed using dose optimization technique as appropriate and may include automated exposure control or mA/KV adjustment according to patient size. FINDINGS: The evaluation of mediastinum, beni, vessels and solid organs is limited secondary to the lack of IV contrast administration The lungs are clear No mediastinal or hilar lymphadenopathy is seen. A pleural effusion is not present. A pericardial effusion is not seen. The liver is mildly enlarged. Spleen, pancreas, adrenals and kidneys appear grossly normal There is no evidence of diverticulitis. Spina bifida. Normal appendix. Suprapubic catheter in place with mild bladder wall thickening ART MANAGER shunt in place IMPRESSION: Mild hepatomegaly
--- NOTE | 2022-06-27 18:37 | RAD REPORT ---
EXAM DESCRIPTION: Duane Single View06/27/2022 6:00 pm CLINICAL HISTORY: cough COMPARISON: May 2022 FINDINGS: The lungs appear clear of acute infiltrate. The heart is normal size IMPRESSION: No acute abnormalities displayed
--- NOTE | 2022-06-27 18:39 | ER ---
Nurse's Notes [facility] Name: Roland Feldman Jr Age: 37 yrs Sex: Male : 1985 Arrival Date: 06/27/2022 Time: 16:32 Bed 7 Private MD: Diagnosis: Diarrhea, unspecified;Weakness;Hypomagnesemia Presentation: 06/27 16:32 Chief complaint: EMS states: pt has wound to back of left calf that occurred 1 month mb9 ago from a spider bite. Pt states "I'm scared I'm going septic again. The wound is oozing pus and is discolored. I also have diarrhea". Coronavirus screen: Vaccine status: Patient reports receiving the 2nd dose of the covid vaccine. Ebola Screen: No symptoms or risks identified at this time. Initial Sepsis Screen: Does the patient meet any 2 criteria? RR > 20 per min. HR > 90 bpm. Does the patient have a suspected source of infection? Yes: Skin breakdown/wound. Risk Assessment: Do you want to hurt yourself or someone else? Patient reports no desire to harm self or others. Onset of symptoms was May 28, 2022. 16:32 Method Of Arrival: EMS: [facility] mb9 16:32 Acuity: YUKI 3 mb9 Historical: - Allergies: 16:36 Amoxicillin; mb9 16:36 Bactrim; mb9 16:36 Ciprofloxacin; mb9 16:36 CLAVULANIC ACID; mb9 16:36 Demerol; mb9 16:36 Doxycycline; mb9 16:36 Levofloxacin; mb9 16:36 Morphine; mb9 16:36 PENICILLINS; mb9 16:36 Toradol; mb9 16:36 TRIMETHOPRIM; mb9 16:36 Vancomycin; mb9 16:36 Zofran; mb9 - PMHx: 16:36 Asthma; Cerebral Palsy; cluster headaches; decubitus ulcers on feet; GERD; mb9 Hydrocephalus; Hypertension; spina bifida; Diabetes mellitus; - PSHx: 16:36 Shunt Revision; Cholecystectomy; mb9 - Immunization history:: Adult Immunizations up to date. - Social history:: Smoking status: Patient reports the use of cigarette tobacco products, smokes one-half pack cigarettes per day. - Family history:: not pertinent. Screenin:00 [facility] ED Fall Risk Assessment (Adult) History of falling in the last 3 months, vg1 including since admission No falls in past 3 months (0 pts) Confusion or Disorientation No (0 pts) Intoxicated or Sedated No (0 pts) Impaired Gait Yes (1 pt) Mobility Assist Device Used Yes (1 pt) Altered Elimination No (0 pt) Score/Fall Risk Level 0 - 2 = Low Risk Oriented to surroundings, Maintained a safe environment, Educated pt \\T\\ family on fall prevention, incl call for assistance when getting out of bed. Abuse screen: Denies threats or abuse. Nutritional screening: No deficits noted. Tuberculosis screening: No symptoms or risk factors identified. 22:45 Fall Risk Fall in past 12 months (25 points). IV access (20 points). Gait- Impaired (20 ha1 pts.). Total Smith Fall Scale indicates High Risk Score (45 or more points). Fall prevention measures have been instituted. Side Rails Up X 2 Placed Close to Nursing Station Frequent Obs/Assessments Occuring. Assessment: 16:36 Reassessment: Code sepsis called. mb9 17:00 General: Appears in no apparent distress. uncomfortable, Behavior is calm, cooperative. vg1 Pain: Complains of pain in left leg Pain currently is 7 out of 10 on a pain scale. Pain began x 1 month. Neuro: Level of Consciousness is awake, alert, obeys commands, Oriented to person, place, time, situation. Cardiovascular: Patient's skin is warm and dry. Respiratory: Airway is patent Respiratory effort is even, unlabored. GI: Abdomen is round non-distended, obese, Reports diarrhea, since x 1 month. : No signs and/or symptoms were reported regarding the genitourinary system. EENT: No signs and/or symptoms were reported regarding the EENT system. Derm: Skin is pink, warm \\T\\ dry. Wound noted left leg. Musculoskeletal: Capillary refill is > 3 seconds, in bilateral toes. 18:00 Reassessment: Patient appears in no apparent distress at this time. No changes from vg1 previously documented assessment. Patient and/or family updated on plan of care and expected duration. Pain level reassessed. Patient is alert, oriented x 3, equal unlabored respirations, skin warm/dry/pink. linen and brief changed. 18:18 Reassessment: Pt transported to CT via stretcher. vg1 18:40 Reassessment: pt up for d/c, currently waiting for IV antibiotics to complete and vg1 Magnesium 2 g IV. 19:30 General: Appears comfortable, Behavior is calm, cooperative. Pain: Complains of pain in ha1 left leg Pain does not radiate. Pain currently is 3 out of 10 on a pain scale. Neuro: Level of Consciousness is awake, alert, obeys commands, Oriented to person, place, time, situation. Cardiovascular: Heart tones S1 S2 present Patient's skin is warm and dry. Respiratory: Airway is patent Respiratory effort is even, unlabored, Respiratory pattern is regular, symmetrical. GI: Abdomen is round non-distended, obese. : No signs and/or symptoms were reported regarding the genitourinary system. EENT: No deficits noted. No signs and/or symptoms were reported regarding the EENT system. Derm: Skin is normal. Musculoskeletal: Capillary refill is > 3 seconds. 19:34 Reassessment: awaiting medication administration. ha1 20:30 Reassessment: Patient and/or family updated on plan of care and expected duration. Pain ha1 level reassessed. Patient is alert, oriented x 3, equal unlabored respirations, skin warm/dry/pink. 21:30 Reassessment: Patient and/or family updated on plan of care and expected duration. Pain ha1 level reassessed. Patient is alert, oriented x 3, equal unlabored respirations, skin warm/dry/pink. awaiting on EMS. 22:37 Reassessment: Patient and/or family updated on plan of care and expected duration. Pain ha1 level reassessed. Patient is alert, oriented x 3, equal unlabored respirations, skin warm/dry/pink. Vital Signs: 16:32 BP 133 / 99; Pulse 102; Resp 22; Temp 97.7; Pulse Ox 100% ; Weight 108.86 kg; Height 5 mb9 ft. 11 in. (180.34 cm); Pain 8/10; 18:30 BP 121 / 80; Pulse 86; Resp 15; Pulse Ox 98% on R/A; vg1 19:33 BP 120 / 80; Pulse 85; Resp 18 S; Pulse Ox 97% on R/A; ha1 21:30 BP 142 / 90; Pulse 86; Resp 19 S; Pulse Ox 97% on R/A; ha1 16:32 Body Mass Index 33.47 (108.86 kg, 180.34 cm) mb9 ED Course: 16:32 Patient arrived in ED. mb9 16:33 Clifton Quezada MD is Attending Physician. [facility] 16:36 Triage completed. mb9 16:38 Arm band placed on. mb9 16:39 Placed in gown. Bed in low position. Call light in reach. Side rails up X 1. Client mb9 placed on continuous cardiac and pulse oximetry monitoring. NIBP monitoring applied. residential monitor on. 17:00 Betty Maguire RN is Primary Nurse. vg1 17:00 Inserted saline lock: 22 gauge 24 gauge in right upper arm, using aseptic technique. vg1 ,using aseptic technique. completed by Christin DISLA. 18:02 XRAY Chest (1 view) In Process Unspecified. EDMS 18:27 CT Chest Abdomen Pelvis W/O Contrast In Process Unspecified. EDMS 18:39 Deborah Leonard MD is Referral Physician. [facility] 19:20 Primary Nurse role handed off by Betty Maguire RN wm 22:38 No provider procedures requiring assistance completed. IV discontinued, intact, ha1 bleeding controlled, No redness/swelling at site. Pressure dressing applied. Administered Medications: 17:42 Drug: NS 0.9% 1000 ml Route: IV; Rate: 1 bolus; Site: right upper arm; vg1 17:45 Drug: Dilaudid (HYDROmorphone) 1 mg Route: IVP; Site: right upper arm; vg1 18:45 Follow up: Response: No adverse reaction; No change in condition vg1 17:47 Drug: Phenergan (promethazine) 25 mg Route: IM; Site: left deltoid; vg1 18:52 Follow up: Response: No adverse reaction vg1 18:13 Drug: Meropenem 1 grams Route: IV; Rate: per protocol; Site: right upper arm; vg1 19:05 Follow up: IV Status: Completed infusion; IV Intake: 100ml vg1 18:50 Drug: Dilaudid (HYDROmorphone) 1 mg Route: IVP; Site: right upper arm; vg1 19:25 Drug: Magnesium Sulfate 2 grams Route: IVPB; Infused Over: 1 hrs; Site: right upper arm;ha1 22:11 Follow up: Response: No adverse reaction; IV Status: Completed infusion; IV Intake: [id number] Medication: 17:00 VIS not applicable for this client. vg1 Intake: 19:05 IV: 100ml; Total: 100ml. vg1 22:11 IV: 50ml; Total: 150ml. ha1 Outcome: 18:39 Discharge ordered by . scott 22:39 Discharged to home via ambulance, [facility] ha1 22:39 Condition: stable 22:39 Discharge instructions given to patient, Instructed on discharge instructions, follow up and referral plans. medication usage, Demonstrated understanding of instructions, follow-up care, medications. 22:46 Patient left the ED. ha1 Signatures: Dispatcher [employer] EDMS Clifton Quezada MD MD cha Garcia, Victoria, RN RN vg1 Lenore Conte Heidy RN RN ha1 Lisbeth Becker, RN RN mb9
--- NOTE | 2022-06-27 18:40 | EDPHYS ---
Physician Documentation [facility] Name: Roland Feldman Jr Age: 37 yrs Sex: Male : 1985 Arrival Date: 06/27/2022 Time: 16:32 Bed 7 Private MD: ED Physician Clifton Quezada HPI: 06/27 17:12 This 37 yrs old Black Male presents to ER via EMS with complaints of diarrhea, weak. scott 17:12 The patient presents with an injury, spider. The complaints affect the left calf. scott Context: The problem was sustained at an unknown site. Onset: The symptoms/episode began/occurred. Modifying factors: The symptoms are alleviated by nothing. the symptoms are aggravated by nothing. Associated signs and symptoms: Pertinent positives: weakness. The patient presents with abdominal distention in the upper abdomen, in the lower abdomen. The patient presents to the emergency department with diarrhea, that is continuous. Historical: - Allergies: 16:36 Amoxicillin; mb9 16:36 Bactrim; mb9 16:36 Ciprofloxacin; mb9 16:36 CLAVULANIC ACID; mb9 16:36 Demerol; mb9 16:36 Doxycycline; mb9 16:36 Levofloxacin; mb9 16:36 Morphine; mb9 16:36 PENICILLINS; mb9 16:36 Toradol; mb9 16:36 TRIMETHOPRIM; mb9 16:36 Vancomycin; mb9 16:36 Zofran; mb9 - PMHx: 16:36 Asthma; Cerebral Palsy; cluster headaches; decubitus ulcers on feet; GERD; mb9 Hydrocephalus; Hypertension; spina bifida; Diabetes mellitus; - PSHx: 16:36 Shunt Revision; Cholecystectomy; mb9 - Immunization history:: Adult Immunizations up to date. - Social history:: Smoking status: Patient reports the use of cigarette tobacco products, smokes one-half pack cigarettes per day. - Family history:: not pertinent. ROS: 17:12 Constitutional: Negative for fever, chills, and weight loss, Eyes: Negative for injury, scott pain, redness, and discharge, ENT: Negative for injury, pain, and discharge, Neck: Negative for injury, pain, and swelling, Cardiovascular: Negative for chest pain, palpitations, and edema, Respiratory: Negative for shortness of breath, cough, wheezing, and pleuritic chest pain, Back: Negative for injury and pain, : Negative for injury, bleeding, discharge, and swelling, Skin: Negative for injury, rash, and discoloration, Neuro: Negative for headache, weakness, numbness, tingling, and seizure, Psych: Negative for depression, anxiety, suicide ideation, homicidal ideation, and hallucinations, Allergy/Immunology: Negative for hives, rash, and allergies, Endocrine: Negative for neck swelling, polydipsia, polyuria, polyphagia, and marked weight changes, Hematologic/Lymphatic: Negative for swollen nodes, abnormal bleeding, and unusual bruising. 17:12 Abdomen/GI: Positive for diarrhea. 17:12 MS/extremity: Positive for decreased range of motion, of the left calf. Exam: 17:12 Constitutional: This is a well developed, well nourished patient who is awake, alert, scott and in no acute distress. Head/Face: Normocephalic, atraumatic. Eyes: Pupils equal round and reactive to light, extra-ocular motions intact. Lids and lashes normal. Conjunctiva and sclera are non-icteric and not injected. Cornea within normal limits. Periorbital areas with no swelling, redness, or edema. ENT: Nares patent. No nasal discharge, no septal abnormalities noted. Tympanic membranes are normal and external auditory canals are clear. Oropharynx with no redness, swelling, or masses, exudates, or evidence of obstruction, uvula midline. Mucous membranes moist. Neck: Trachea midline, no thyromegaly or masses palpated, and no cervical lymphadenopathy. Supple, full range of motion without nuchal rigidity, or vertebral point tenderness. No Meningismus. Chest/axilla: Normal chest wall appearance and motion. Nontender with no deformity. No lesions are appreciated. Cardiovascular: Regular rate and rhythm with a normal S1 and S2. No gallops, murmurs, or rubs. Normal PMI, no JVD. No pulse deficits. Respiratory: Lungs have equal breath sounds bilaterally, clear to auscultation and percussion. No rales, rhonchi or wheezes noted. No increased work of breathing, no retractions or nasal flaring. Abdomen/GI: Soft, non-tender, with normal bowel sounds. No distension or tympany. No guarding or rebound. No evidence of tenderness throughout. Back: No spinal tenderness. No costovertebral tenderness. Full range of motion. Male : Normal genitalia with no discharge or lesions. Skin: Warm, dry with normal turgor. Normal color with no rashes, no lesions, and no evidence of cellulitis. MS/ Extremity: Pulses equal, no cyanosis. Neurovascular intact. Full, normal range of motion. Neuro: Awake and alert, GCS 15, oriented to person, place, time, and situation. Cranial nerves II-XII grossly intact. Motor strength 5/5 in all extremities. Sensory grossly intact. Cerebellar exam normal. Normal gait. Psych: Awake, alert, with orientation to person, place and time. Behavior, mood, and affect are within normal limits. 17:12 ECG was reviewed by the Attending Physician. 17:52 Musculoskeletal/extremity: DVT Exam: no pain, no swelling, no tenderness, negative scott Homans' sign noted on exam, no appreciated bluish discoloration, no erythema, no increased warmth, left posterior calf wound , not red, not hot, not tender, not draining. Vital Signs: 16:32 BP 133 / 99; Pulse 102; Resp 22; Temp 97.7; Pulse Ox 100% ; Weight 108.86 kg; Height 5 mb9 ft. 11 in. (180.34 cm); Pain 8/10; 18:30 BP 121 / 80; Pulse 86; Resp 15; Pulse Ox 98% on R/A; vg1 19:33 BP 120 / 80; Pulse 85; Resp 18 S; Pulse Ox 97% on R/A; ha1 21:30 BP 142 / 90; Pulse 86; Resp 19 S; Pulse Ox 97% on R/A; ha1 16:32 Body Mass Index 33.47 (108.86 kg, 180.34 cm) mb9 MDM: 16:33 Patient medically screened. scott 17:15 Differential diagnosis: Nonspecific abd pain, viral gastroenteritis, gastroenteritis. scott Data reviewed: vital signs, nurses notes, lab test result(s), EKG, radiologic studies, CT scan, plain films. Data interpreted: monitor technician: rate is 97 beats/min, rhythm is regular, Pulse oximetry: on room air is 100 %. Test interpretation: by ED physician or midlevel provider: ECG, plain radiologic studies. Counseling: I had a detailed discussion with the patient and/or guardian regarding: the historical points, exam findings, and any diagnostic results supporting the discharge/admit diagnosis, lab results, radiology results. 06/27 16:40 Order name: Blood Culture Adult (2) [facility] 06/27 16:40 Order name: CBC with Diff; Complete Time: 17:34 [facility] 06/27 16:40 Order name: Lactate w/ 2H reflex if indic.; Complete Time: 17:50 [facility] 06/27 16:40 Order name: Protime (+inr); Complete Time: 17:50 [facility] 06/27 16:40 Order name: Ptt, Activated; Complete Time: 17:50 [facility] 06/27 16:55 Order name: LFT's; Complete Time: 18:16 [facility] 06/27 16:55 Order name: Magnesium; Complete Time: 18:16 [facility] 06/27 16:55 Order name: NT PRO-BNP; Complete Time: 18:16 [facility] 06/27 16:55 Order name: Troponin HS; Complete Time: 18:16 [facility] 06/27 16:55 Order name: COVID-19/FLU A+B; Complete Time: 18:15 [facility] 06/27 16:55 Order name: Wound Culture [facility] 06/27 16:40 Order name: EKG; Complete Time: 16:41 [facility] 06/27 16:40 Order name: Cardiac monitoring; Complete Time: 16:47 [facility] 06/27 16:40 Order name: EKG - Nurse/Tech; Complete Time: 16:47 [facility] 06/27 16:55 Order name: XRAY Chest (1 view); Complete Time: 18:39 [facility] 06/27 17:11 Order name: CT Chest Abdomen Pelvis W/O Contrast; Complete Time: 18:39 [facility] 06/27 17:28 Order name: Comprehensive Metabolic Panel; Complete Time: 18:16 [facility] 06/27 16:40 Order name: Labs collected and sent; Complete Time: 18:36 [facility] 06/27 16:40 Order name: O2 Per Protocol; Complete Time: 16:40 [facility] 06/27 16:40 Order name: O2 Sat Monitoring; Complete Time: 16:40 [facility] 06/27 16:40 Order name: Vital Signs; Complete Time: 16:40 [facility] 06/27 16:55 Order name: IV Saline Lock; Complete Time: 17:51 [facility] 06/27 17:52 Order name: Wound dressing; Complete Time: 22:11 [facility] EC:12 Rate is 97 beats/min. Rhythm is regular. QRS [place] is Normal. MS interval is normal. QRS scott interval is normal. QT interval is normal. No Q waves. T waves are Normal. No ST changes noted. Clinical impression: NSR w/ Non-specific ST/T Changes and No evidence of ischemia. Interpreted by me. Reviewed by me. Administered Medications: 17:42 Drug: NS 0.9% 1000 ml Route: IV; Rate: 1 bolus; Site: right upper arm; vg1 17:45 Drug: Dilaudid (HYDROmorphone) 1 mg Route: IVP; Site: right upper arm; vg1 18:45 Follow up: Response: No adverse reaction; No change in condition vg1 17:47 Drug: Phenergan (promethazine) 25 mg Route: IM; Site: left deltoid; vg1 18:52 Follow up: Response: No adverse reaction vg1 18:13 Drug: Meropenem 1 grams Route: IV; Rate: per protocol; Site: right upper arm; vg1 19:05 Follow up: IV Status: Completed infusion; IV Intake: 100ml vg1 18:50 Drug: Dilaudid (HYDROmorphone) 1 mg Route: IVP; Site: right upper arm; vg1 19:25 Drug: Magnesium Sulfate 2 grams Route: IVPB; Infused Over: 1 hrs; Site: right upper arm;ha1 22:11 Follow up: Response: No adverse reaction; IV Status: Completed infusion; IV Intake: [id number] Disposition Summary: 06/27/22 18:39 Discharge Ordered Location: Home scott Problem: new scott Symptoms: have improved scott Condition: Stable scott Diagnosis - Diarrhea, unspecified scott - Weakness scott - Hypomagnesemia scott Followup: scott - With: Private Physician - When: 2 - 3 days - Reason: Recheck today's complaints, Continuance of care, Re-evaluation by your physician Followup: scott - With: - When: 2 - 3 days - Reason: Recheck today's complaints, Re-evaluation by your physician Discharge Instructions: - Discharge Summary Sheet scott - Diarrhea, Adult scott - Weakness scott - Wound Infection scott - Diarrhea, Adult, [id number]-zk-[id number] scott - Hypomagnesemia scott - Weakness, Lkhi-[id number]-[id number] scott - Wound Infection, [id number]-cz-[id number] scott - Wound Care, Adult scott Forms: - Medication Reconciliation Form scott - Thank You Letter scott - Antibiotic Education scott - Prescription Opioid Use scott - SBAR form ha1 Prescriptions: - dicyclomine 20 mg Oral Tablet - take 1 tablet by ORAL route 4 times per day; 28 tablet; Refills: 0, Product scott Selection Permitted Signatures: Dispatcher [employer] EDMS Clifton Quezada MD MD cha Mickail, Joel, PA PA jmm Garcia, Victoria, RN RN vg1 Karine Zapien RN RN 1 Lisbeth Becker RN RN mb9 Corrections: (The following items were deleted from the chart) 17:28 16:41 COMPREHENSIVE METABOLIC PANEL+C.LAB.BRZ ordered. EDMS EDMS 17:28 16:56 BASIC METABOLIC PANEL+C.LAB.BRZ ordered. EDMS EDMS 18:36 16:40 Accucheck ordered. mb9 aa5 18:36 16:40 IV Saline Lock - Large Bore ordered. mb9 aa5
[2022-06-27] MEDS ORDERED: Magnesium Sulfate 2gm IVPB 2 G/50 ML BAG IV ONE (18:48)
[2022-06-27 22:53] VITALS: TEMP 97.7
[2022-06-27 22:55] VITALS: O2SAT 97
[2022-06-27 22:56] VITALS: BP 142/90
--- NOTE | 2022-06-28 08:03 | EKG ---
Test Date: 2022-06-27 Test Time: 16:54:54 Buying Agent: MB MEASUREMENT RESULTS: Intervals: Rate: 97 MS: 136 QRSD: 94 QT: 346 QTc: 439 [place]: P: 54 MS: 136 QRS: 62 T: 19 INTERPRETIVE STATEMENTS: Normal sinus rhythm with sinus arrhythmia Cannot rule out Anterior infarct, age undetermined Abnormal ECG Compared to ECG 12/26/2021 03:56:07 Myocardial infarct finding now present T-wave abnormality no longer present Possible ischemia no longer present Electronically Signed On 06-28-22 08:01:45 GRADUATE ASSISTANT by Justin Heredia
== END 2022-06-27 22:46 | disposition home or self-care (01) ==
LOC: ER 16:29
DX: R19.7 Diarrhea, unspecified (principal); R53.1 Weakness; E83.42 Hypomagnesemia; Z20.822 Contact with and (suspected) exposure to COVID-19
CPT/HCPCS: 87040 ×2; 87070; 85025; 36415; 83735; 87205; 85610; 80076; 83605; 85730; 84484; 80053; 83880; 0240U; 71250; 74176; 71045; J2550; J2185; J3475; J1170 ×2; J7030; 93005

== ENCOUNTER 2022-08-06 12:32 | Inpatient (IN) | payer OTHER ==
[2022-08-06] MEDS ORDERED: NA CHLORIDE 0.9% 1,000 ML ONE ×4 (13:10→18:59)
--- OUTSIDE RECORDS SUMMARY | 2022-08-06 13:19 | XMS REPORT | Continuity of Care Document ---
:1985 Author Organization [facility] t Address [address] [place] [address] Support Name Relationship Address Phone LAMAR NGUYEN [address] [place] [phone] LAMAR NGUYEN [place] [address] [place] [phone] one else per patient, No Unavailable Unavailable Unavail able Roland Nguyen Unavailable [address] [phone] [place] [address] Lana Nguyen Unavailable Unavailable [phone] Roland Nguyen Jr Unavailable [address] [place] [address] PATIENT, NO ONE ELSE PER Unavailable Unavailable Unavail able PHYILLIS Grandparent Unavailable Unavailable LAMAR NGUYEN M [address] [place] [id number] Lamar Linares Mother [address] [phone] [place] [id number] HOSSEIN, LISA Grandparent Unavailable ROLAND NGUYEN F [address] Unavailable [place] [address] O'GALDINO, LISA NOEMÍ Grandparent [address] Unavailable [place] [address] Noemí O'Galdino, Lisa Grandparent [address] [place] [id number] Patrick Walls, Roland Father [address] [place] [id number] Lamar Nguyen [address] [facility] [phone] [place] [address] Care Team Providers Name Role Phone Nichole Eren iH Primary Care Physician Eren Varela Attending Clinician Unavailable YUDI HOLLOWAY Attending Clinician Unavailable YUDI HOLLOWAY Attending Clinician Unavailable KIN INMAN Attending Clinician Unavailable Kin Inman MD Attending Clinician Doctor Unassigned, Russell Attending Clinician Unavailable Lab, Ang - Db Attending Clinician Unavailable NEGAR GUARDADO Attending Clinician Unavailable Raymundo BOYLE, Lynette Do Attending Clinician Negar Guardado DO Attending Clinician STEPHANIE BALDERRAMA Attending Clinician Unavailable Conchis LAST SAWYER, Stephanie Quiles Attending Clinician LAMINE SERNA Attending Clinician Unavailable Lamine Serna MD Attending Clinician Kamila Zepeda LVN Attending Clinician KAYLEE ARGUETA Attending Clinician Unavailable Diomedes Lester Attending Clinician Kaylee Argueta MD Attending Clinician SARAH BETH PAUL Attending Clinician Unavailable [place] DISLA, Vesta Petit Attending Clinician Unavailable Concetta Jackson MD Attending Clinician Kristie Alvarado RN Attending Clinician RICARDO CONROY Attending Clinician Unavailable Harry MURPHYP, Vic B Attending Clinician Edwardo NUNO, Royer Suárez Attending Clinician [phone] Aurora Martinez MD Attending Clinician Mayank NUNO, Adonis Do Attending Clinician Ricardo Conroy MD Attending Clinician Heide Abraham MD Attending Clinician Huy Singh MD Attending Clinician Beverly KEENM, Sarah Beth A Attending Clinician [phone] DILEEP CONNOLLY Attending Clinician Unavailable Carlene Montgomery Attending Clinician Dileep Connolly MD Attending Clinician [...] Thomas León MD Attending Clinician Tao NUNO, Daily Dailey Attending [...] Number Effective Date Expiration Date S samir [facility] [id number] 2020 PLUS 00:00[facility]00 [facility] [id number] 2022 00:00:00 [facility] [id number] Common (Medicaid) [facility] [id number] Common (Medicaid) [facility] [employer] [id number] Common (Medicaid) [facility] [employer] [id number] Common (Medicaid) [facility] [employer] [id number] Common (Medicaid) [facility] Problems Condition Condition Condition Status Onset [...] Added automatic ally from request for surgery [id number] Right foot Right foot Disease Active Overview : Univers ulcer, ulcer, 803 Formattin ity of with fat with fat 00:00: g of this Tim as layer layer 00 note Medical exposed exposed might be Branch different from the original. Added automatic ally from request for surgery [id number] Diabetic Diabetic Disease Active Unive rs ketoacidos ketoacidos 7-26 it y of is without is without [...] Active Uni vers ulcer of ulcer of 12-17 ity of heel, heel, 00:00: [place] left, left, 00 Medical unstageabl unstageabl Br anch e e Pyuria Pyuria Disease Active Univers 605 ity of 00:00: [place] 00 Medical Branch Chronic Chronic Disease Active Univers suprapubic suprapubic 12-15 it y of catheter catheter 00:00: [place] [facility] Branch Uncontroll Uncontroll Disease Active U braulio ed ed 12-15 ity of diabetes diabetes 00:00: [place] mellitus mellitus 00 Medica l with with Branch complicati complicati ons ons Spina Spina Disease Recurre Univers bifida bifida nce 12-15 ity of 00:00: [place] [facility] Branch Wound Wound Disease Active Univers infection infection -11 ity of 00:00: [place] 00 [facility] Branch Chills Chills Disease Active Univers 5-11 ity of 00:00: [place] [facility] Branch POSSIBLE POSSIBLE Diagnosis Active 2021-11-01 Memoria 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 SHUNT 10-20 21:48:00 l MALFUNCTIO MALFUNCTIO 00:00: Alexis granados N N Active 00 10/20/2021 [facility] 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 CLERK SHUNT Diagnosis Active 2021-10-11 Memoria MALFUNCTIO MALFUNCTIO 10-06 14:12:00 l N N Active 00:00: Jason 10/06/2021 [facility] 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 CLERK SHUNT Diagnosis Active 2021-10-05 Memoria MALFUCTION MALFUCTION - 23:59:00 l Active 00:00: Jason 10/05/2021 [facility] Complicate Complicate Disease Active U nivkristen d urinary d urinary 1-20 ity of tract tract 00:00: [place] infection infection 00 [facility] Branch Hyperglyce Hyperglyce Disease Active [facility] 1[facility]07 [facility] without without 00:00: Medical ketosis ketosis 00 Center HEADACHE HEADACHE Diagnosis Active 2017-072018-05-27 Memoria Active 07-22 22:05:00 l 05/22/2018 00:00: [facility] [address] SHUNT SHUNT Diagnosis Active 2017-11-14 Mem oria MALFUNCTIO MALFUNCTIO 11-14 20:00:00 l N N Active 00:00: Jason 11/14/2017 00 [facility] ACUTE ACUTE Diagnosis Active 2017-11-20 Mem oria HEADACHE HEADACHE 11-14 09:20:00 l Active 00:00: [place] 11/14/2017 00 [facility] Spina Spina Disease Active [facility] Pyelonephr Pyelonephr Disease Active [facility] itis itis 12-23 [facility] Center Morbid Morbid Disease Active Univers obesity obesity 1-04 ity of with body with body 00:00: Vinny s mass index mass index 00 Me dical of of Branch 40.0-49.9 40.0-49.9 Lumbar Problem Active Common spina Spirit bifida - [facility] with [facility] Dependence Problem Active Commo n on [facility] Paraplegia Problem Active Commo n [facility] Constipati Problem Active Commo n on [facility] Incontinen Problem Active Commo n ce of Spirit urine - [facility] Nausea Problem Active Common [facility] Mixed Problem Active Common anxiety Spirit and - [facility] depressive [facility] [id number] Problem Active Common [facility] Bowel Problem Active Common incontinen Spirit ce - [facility] [id number] Problem Active Common [facility] [id number] Problem Active Common [facility] [id number] Problem Active Common [facility] [id number] Problem Active Commo n [id number] [facility] Foot ulcer Problem Active Commo n [facility] Myelocele Problem Active Common with Spirit hydrocepha [facility] bam [facility] [id number] Problem Active Common [facility] [id number] Problem Active Common [facility] Nicotine Problem Active Common dependence [facility] [id number] Problem Active Common [facility] [id number] Problem Active Common [facility] [id number] Problem Active Common [facility] [id number] Problem Active Common [facility] Spina Spina Problem 2018-12-09 Memor ia bifida, bifida, 14:14:02 l unspecifie unspecifie He rmann d d 12/09/2018 [facility] Nausea Nausea Problem 2018-12-09 Erwin benjamin with with 14:14:02 l vomiting, vomiting, Herm carly unspecifie unspecifie d d 12/09/2018 [facility] Diplopia Diplopia Problem 2018-12-09 Memoria 12/09/2018 14:14:02 l [facility] Cerebral Cerebral Problem 2018-12-09 Memoria palsy, palsy, 14:14:02 l unspecifie unspecifie He rmann d d 12/09/2018 [facility] Acquired 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-09 Memoria absence of absence of 14:14:02 l other other [place] specified specified parts of parts of digestive digestive tract tract 12/09/2018 [facility] Nicotine Nicotine Problem 2018-12-09 Memoria dependence dependence 14:14:02 l , , [place] cigarettes cigarettes , , uncomplica uncomplica lester lester 12/09/2018 [facility] Presence Presence Problem 2018-12-09 Memoria of of 14:14:02 l cerebrospi cerebrospi He rmann nal fluid nal fluid drainage drainage device device 12/09/2018 [facility] Allergy Allergy Problem 2018-12-09 Me moria status to status to 14:14:02 l other other Jason antibiotic antibiotic agents agents status status 12/09/2018 [facility] Allergy Allergy Problem 2018-12-09 Me moria status to status to 14:14:02 l other other [place] drugs, drugs, medicament medicament s and s and biological biological substances substances status status 12/09/2018 [facility] Allergy Allergy Problem 2018-12-09 Me moria status to status to 14:14:02 l narcotic narcotic [facility] agent agent status status 12/09/2018 [facility] Asthma Asthma Problem Resolve 2021-10-27 Mem oria (disorder) (disorder) d 23:48:47 l Resolved Jason Problem 10/27/[address] [facility] Bronchitis Bronchiti Problem Resolve 2021-10-27 Memoria (disorder) s d 23:48:47 l (disorder) Christian n Resolved Problem 10/27/[address] [facility] 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-27 Memoria palsy palsy d 23:48:47 l (disorder) (disorder) He rmann Resolved Problem 10/27/[address] [facility] Hydrocepha Hydroceph Problem Resolve 2021-10-27 Memoria bam alus d 23:48:47 l (disorder) (disorder) He rmann Resolved Problem 10/27/[address] [facility] Osteomyeli Osteomyel Problem Resolve 2021-10-27 Memoria tis itis d 23:48:47 l (disorder) (disorder) He rmann Resolved Problem 10/27/[address] [facility] Acute pain Acute Problem Active 2021-10-27 M emoria (finding) pain 23:48:47 l (finding) Jason Active Problem 10/27/[address] [facility] Morbid Morbid Problem Active 2021-10-27 Erwin benjamin obesity obesity 23:48:47 l (disorder) (disorder) He rmann Active Problem 10/27/2021 [facility] Providenci Problem Active 2021-10-27 M emoria a Providenci 23:48:47 l (organism) a Christian n (organism) Active Problem 10/27/2021 Problem added by Discern Expert. [facility] History of Past Illness Condition Condition Condition Status Onset Resolution Last Treating Co mments Source Name Details Category Date Date Treatment Clinician Date Headache Headache Problem 2017-072018-12-09 2018-12-09 Memoria 05/22/2018 1-08 14:14:02 14:14:02 l 12/09/2018 06:00: [facility] [address] Allergies, Adverse Reactions, Alerts Allergy Allergy Status Severity Reaction(s) Onset Inactive Treating Comm ents Source Name Type Date Date Clinician Amoxicil Propensi Active Hives 2018-0 Univer [place] to 02-07 ity of adverse 00:00: [place] reaction 00 Medical s Branch AMOXICIL DRUG Active Hives 2018-0 Univers LAKE INGREDI 02-07 ity of 00:00: [...] SULFAMET DRUG Active Other-Cmnt Univ ers HOPRIM 1- ity of DS 00:00: [place] Medical [facility] VANCOMYC DRUG Active Other-Cmnt Univ ers IN INGREDI 1-04 ity of 00:00: [place] [facility] Sulfamet Propensi Active Rash Univer s hoxazole ty to 7- ity of adverse 00:00: [place] reaction 00 Medical s Branch Ondanset Propensi Active Nausea Univer s kumar Hcl ty to and/or 01-30 ity of (Pf) adverse Vomiting 00:00: [place] reaction 00 Medical s Branch SULFAMET DRUG Active Rash Univers HOXAZOLE INGREDI 7- ity of 00:00: [place] [facility] ONDANSET DRUG Active N/V Univers KUMAR HCL 7-19 ity of (PF) 00:00: [place] 00 Medical Branch Levoflox Propensi Active Hives Univer s acin ty to ity of adverse 00:00: [place] reaction 00 Medical s Branch Morphine Propensi Active Hives 2007- Univer s ty to 12-04 ity of adverse 00:00: [place] reaction 00 Medical s Branch Ketorola Propensi Active Nausea 2007- Univer s c ty to and/or 12-04 [...] TROMETHA 00:00: [place] MINE 00 Medical Branch morphine Drug Active Common allergy [facility] ondanset Drug Active Common kumar allergy [facility] [id number] Drug Active Common allergy [facility] amoxicil amoxicil Active Memori [place] morphine morphine Active Memori a l [place] Toradol Toradol Active Memoria l [place] Minocin Minocin Active Memoria l [place] Zofran Zofran Active Memoria l Jason Levaquin Levaquin Active Memori a l [place] Bactrim Bactrim Active Memoria l Jason Reglan Reglan Active Memoria l [place] Family History Family Member Diagnosis Comments Start Date Stop Date Source Natural father Diabetes [facility] Natural mother No Significant Univer sity of [place] Medical Problems Medical Branch Social History Social Habit Start Date Stop Date Quantity Comments Source History [facility] o f Alcohol Frequency [facility] edical Branch History [facility] o f Alcohol Std Drinks [place] [facility] Branch History [facility] o f Alcohol Binge [place] Medic al Branch History of tobacco Cigarette Smoker University of use [facility] Alcohol intake 2022-07-05 2022-07-05 Current drinker Unive rsity of 00:00:00 00:00:00 of alcohol [facility] (finding) Branch Exposure to 2022-06-15 2022-06-25 Not sure University of SARS-CoV-2 (event) 00:00:00 12:04:00 [facility] Branch Education 2022-05-20 2022-05-20 21 University of 00:00:00 00:00:00 [facility] Tobacco use and 2022-05-04 2022-05-04 Smokeless Universit y of exposure 00:00:00 00:00:00 tobacco non-user [facility] Alcohol Comment 2022-02-15 2022-02-15 once a year Universi ty of 00:00:00 00:00:00 [facility] Social History 2021-10-06 2021-10-06 [facility] 05:57:00 05:57:00 Cigarettes smoked 2016-12-23 2016-12-23 DEDE Guzman current (pack per 00:00:00 00:00:00 Medical Center day) - Reported Sex Ass[birth year] At [birth year] DEDE Bakers 00:00:00 00:00:00 [facility] Smoking Status Start Date Stop Date Source Social History 2018-05-22 11:26:10 [facility] Medications Ordered Filled Start Stop Current Ordering Indication Dosage Frequency Signature Comments Components Source Medication Medication Date Date Medication? Clinician (SIG) Name Name lisinopriL Yes [id number] 2.5mg Take 1 Univers 2.5 mg 1-01 tablet by ity of tablet 00:00: mouth in [place] 00 the Medical morning. Branch lisinopriL Yes [id number] 2.5mg Take 1 Univers 2.5 mg 1-01 tablet by ity of tablet 00:00: mouth in [place] 00 the Medical morning. [place] Nitrofurant 2021-07- Yes 100mg 100 mg, U nivers oin&Nit. 07-2213 Oral, BID, ity of Macrocryst 02:00: 01:59 10 doses, [place] (MACROBID) 00 :00 First dose Med ical 100 mg on Mon Branch capsule 100 05/21/22 at mg 2000, Last dose on 05/26/22 at 0800, Routine
Reason for Anti-Infec tive: Empiric Therapy for Suspected Infection< br>Empiric Therapy Site: Urine
D uration of therapy: 72 hours ceFEPIme 2021-07- No 1000mg 1,000 mg, U nivers (MAXIPIME) 07-2107 IV ity of 1,000 mg in 21:15: 21:34 [place], [place] NaCl 0.9% 00 :48 ONCE, 1 Medical (NS) 50 mL dose, On Bran h MINI-BAG 05/21/22 at 1515, Administer over 30 Minutes, 50 mL
Reas on for Anti-Infec tive: Documented Infection< br>Documen lester Infection Site: Urine<br&g t;Duration of Therapy: 7 days HYDROmorpho 2022-1 Yes 4mg Take 4 mg U nivers ne 4 mg 1-07 by mouth 3 ity of tablet 17:55: (three) [place] 40 times Medical daily as Branch needed. HYDROmorpho 2022-1 Yes 4mg Take 4 mg U nivers ne 4 mg 1-07 by mouth 3 ity of tablet 17:55: (three) [place] 40 times Medical daily as Branch needed. HYDROmorpho 2022-1 Yes 4mg Take 4 mg U nivers ne 4 mg 1-07 by mouth 3 ity of tablet 17:55: (three) [place] 40 times Medical daily as Branch needed. HYDROmorpho 2-1 Yes 4mg Take 4 mg U nivers ne 4 mg 1-07 by mouth 3 ity of tablet 17:55: (three) [place] 40 times Medical daily as Branch needed. HYDROmorpho 2-1 Yes 4mg Take 4 mg U nivers ne 4 mg 1-07 by mouth 3 ity of tablet 17:55: (three) [place] 40 times Medical daily as Branch needed. HYDROmorpho 2-1 Yes 4mg Take 4 mg U nivers ne 4 mg 1-07 by mouth 3 ity of tablet 17:55: (three) [place] 40 times Medical daily as Branch needed. HYDROmorpho 2022-1 Yes 4mg Take 4 mg U nivers ne 4 mg 1-07 by mouth 3 ity of tablet 17:55: (three) [place] 40 times Medical daily as Branch needed. HYDROmorpho 2022-1 Yes 4mg Take 4 mg U nivers ne 4 mg 1-07 by mouth 3 ity of tablet 17:55: (three) [place] 40 times Medical daily as Branch needed. HYDROmorpho 2022-1 Yes 4mg Take 4 mg U nivers ne 4 mg 1-07 by mouth 3 ity of tablet 17:55: (three) [place] 40 times Medical daily as Branch needed. HYDROmorpho 2022-1 Yes 4mg Take 4 mg U nivers ne 4 mg 07-21 by mouth 3 ity of tablet 17:55: (three) [place] 40 times Medical daily as Branch needed. enoxaparin 2021-07 Yes 40mg 40 mg, Unive rs (LOVENOX) 07-21 Subcutaneo ity of injection 15:00: [place], [place], [place] 40 mg 00 First dose Medical on Sat Branch 05/21/22 at 0900, Until Discontinu ed, Routine Sliding 2021-07 Yes Subcutaneo Univ ers Scale 07 us, TID ity of Insulin - 03:00: MEALS+HS, Tim as Lispro 00 First dose Medical (HumaLOG) + on [facility]sbg 05/20/22 at Testing 2100, Until Discontinu ed, Routine FENTanyl PF 2021-07- No 75ug 75 mcg, Un ela (SUBLIMAZE 07-21 Slow IV ity o f (PF)) 01:15: 00:23 Push, [place] injection 00 :00 ONCE, 1 Medical 75 mcg dose, On [facility] 05/20/22 at 1915, Routine dextrose 2021-07 Yes 250mL 250 mL, IV Un ela 10% (D10W) 07-21 Infusion, ity of bolus 01:12: PRN - SEE [place] infusion 23 INSTRUCTIO Medic al 250 mL NS, Branch Administer over 60 Minutes, Other, If blood glucose is < or = 70 mg/dL and patient is unable to swallow or has mental status changes, Starting on [place] 05/20/22 at 1912
If blood glucose is [...] KIT) 20 Starting Medical injection 1 on Sun Branch mg 05/20/22 at 1912, Until Discontinu ed, [...] Medical Infusion, Branch ONCE, 1 dose, On 05/20/22 at 1830, STAT Nitrofurant 2021-07- Yes [id number] 100mg Take 1 Univers oin&Nit. 07-21 11-15 [...] Medical Infusion, Branch ONCE, 1 dose, On 05/20/22 at 1745, SAHARA FENTanyl PF 2021-07 No 75ug 75 mcg, Un ela (SUBLIMAZE 1-06 11-06 Slow IV ity o f (PF)) 23:45: 23:19 Push, [place] injection 00 :00 ONCE, 1 Medical 75 mcg dose, On Branch 05/20/22 at 1745, Routine iopamidol 2021-07 No [id number] 85mL 85 mL, Univers (ISOVUE 0-30 10-30 Intravenou ity o f 370-500 mL) 03:00: 02:09 s, ONCE, 1 [place] injection 00 :00 dose, On Medica l 85 mL Sat Branch 05/12/22 at 2200, Routine FENTanyl PF 2021-07 No 50ug 50 mcg, Un ela (SUBLIMAZE 0-30 10-30 Slow IV ity o f (PF)) 02:45: 01:47 [place], [place] injection 00 :00 ONCE, 1 Medical 50 mcg dose, On Branch 05/12/22 at 2145, Routine cefdinir 2021-07 No 300mg 300 mg, Univ ers (OMNICEF) [...] at 2045, piggyback SAHARA cefdinir 2021-07 Yes [id number] 300mg Take 1 Un ela 300 mg 0-29 capsule by ity of capsule 00:00: mouth [place] 00 every 12 Medical (twelve) Branch hours. cefdinir 2021-07 Yes [id number] 300mg Take 1 Un ela 300 mg 0-29 capsule by ity of capsule 00:00: mouth [place] 00 every 12 Medical (twelve) Branch hours. cefdinir 2021-07- No [id number] 300mg Take 1 U nivers 300 mg 0-29 11-07 capsule by ity of capsule 00:00: 00:00 [...] mouth 3 ity of tablet 12:52: (three) [place] 28 times Medical daily as Branch needed. HYDROmorpho 2021-07 Yes 4mg Take 4 mg U nivers ne 4 mg 0-23 by mouth 3 ity of tablet 12:52: (three) [place] 28 times Medical daily as Branch needed. HYDROmorpho 2021-07- No .5mg 0.5 mg, Un ela ne 0-23 10-23 Slow IV ity of (DILAUDID) 03:15: 03:23 Push, [place] injection 00 :00 ONCE, 1 Medical 0.5 mg dose, On Branch 05/05/22 at 2215, Routine
Use approved by (Faculty): ADC PROVIDER HYDROmorpho 2021-07- No .5mg 0.5 mg, Un ela ne 0-22 10-22 Slow IV ity of (DILAUDID) 02:00: 02:00 Push, [place] injection 00 :00 ONCE, 1 Medical 0.5 mg dose, On Branch 05/04/22 at 2100, Routine
Use approved by (Faculty): ADC PROVIDER doxycycline 2021-07- No 100mg 100 mg, IV Univers (VIBRAMYCIN 0- 10- Piggyback, i ty of ) 100 mg [...] 40 mg 00 First dose Medical on Sat05/04/22 at 1700, Until Discontinu ed, Routine ceFEPIme 2021-07 No 2000mg 2,000 mg, U nivers (MAXIPIME) 005-09 IV ity of 2,000 mg in 21:00: 20:59 [place], [place] NaCl 0.9% 00 :00 Q8H ABX, Medica l (NS) 50 mL 15 doses, Bran ch MINI-BAG First dose on Sat05/04/22 at 1600, [...] of e 0.125 % 18:30: dose on [place] (DAKIN'S Sat Medical SOLUTION) 05/04/22 Branch solution at 1330, Until Discontinu ed, Routine ceFEPIme 2021-07 No 2000mg 2,000 mg, U nivers (MAXIPIME) 0-05-04 IV ity of 2,000 mg in 13:15: 14:55 [place], [place] NaCl 0.9% 00 :00 ONCE, 1 Medical (NS) 50 mL dose, On Branc h MINI-BAG 05/04/22 at 0815, Administer over 30 Minutes, 50 [...] ela en 0 Oral, ity of (TYLENOL) 12:08: Q6HPRN, [place] tablet 650 12 Starting Medic al mg [...] 0 IV ity of (PHENERGAN) 12:07: [place], [place] 12.5 mg in 04 Q4HPRN, Medica l [...] en Oral, ity of (TYLENOL) 11:01: Q6HPRN, [place] tablet 650 26 Starting Medic al mg on Fri Branch 05/04/22 at 0601, Until Discontinu ed, Routine, Pain (scale 1-3) iopamidol 2021-07- No [id number] 100mL 100 mL, Univers (ISOVUE 05-04 Intravenou [...] On Branch 05/04/22 at 0130, [place] proMETHazin 2021-07 No 12.5mg 12.5 mg, Univers e 0-21 - IV ity of (PHENERGAN) 06:15: 06:12 [place], [place] 12.5 mg in 00 :00 ONCE, 1 Medica l NaCl 0.9% dose, On Branch (NS) 50 mL Fri IV 05/04/22 piggyback at 0115, [facility] insulin Yes 26U 26 Units, Unive rs glargine 02-25 Subcutaneo ity o f (LANTUS 02:00: us, [facility], [place] U-100) 00 First dose Medical injection (after Branch 26 Units last modificati on) on 02/24/22 at 2100, Until Discontinu ed, Routine insulin No 24U 24 Units, Univ ers glargine 02-23 Subcutaneo ity of (LANTUS 20:38: 20:43 us, ONCE, [facility] s U-100) 00 :00 1 dose, On Medical injection Fri Branch 24 Units 02/23/22 at 1545, [facility] sennosides- Yes 1{tbl} 1 tablet, [facility] docusate 02-23 Oral, ity of sodium 14:00: DAILY, [place] (SENOKOT-S) 00 First dose Me dical 8.6-50 [...] Subcutaneo i ty of injection 14:00: 17:23 , [place] 16 Units 00 :36 QAM+HS, Medical First dose Branch (after last modificati on) on 02/23/22 at 0900, Until Discontinu ed, Routine Sliding Yes Subcutaneo Univ ers Scale 8- us, TID ity of Insulin - 13:00: MEALS+HS, [place] as Lispro 00 First dose Medical (HumaLOG) + (after Branch Fsbg last Testing modificati on) on 02/23/22 at 0800, Until Discontinu ed, Routine insulin NPH 202- No 8U 8 Units, U nivers (HUMULIN N) 02-23 Subcutaneo i ty of injection 8 02:00: 12:34 us, QHS, [place] Units 00 :51 First dose Medical (after Branch last modificati on) on [place] 02/22/22 at 2100, Until Discontinu ed, Routine repaglinide 0 Yes [id number] .5mg Take 1 Univers 0.5 mg 8-12 tablet by ity of tablet 00:00: mouth in [address] morning [place] and 1 tablet at noon and 1 tablet in the evening. Take before meals. sodium 2021-0 Yes [id number] Apply to [facility] hypochlorit 8-12 area(s) ity o f e 0.25% 00:00: daily. [place] solution [facility] repaglinide 0 Yes [id number] .5mg Take 1 Univers 0.5 mg 8-12 tablet by ity of tablet 00:00: mouth in [address] and 1 tablet at noon and 1 tablet in the evening. Take before meals. sodium 2021-0 Yes [id number] Apply to [facility] hypochlorit 8-12 area(s) ity o f e 0.25% 00:00: daily. [place] solution [facility] repaglinide 2021-0 Yes [id number] .5mg Take 1 Univers 0.5 mg 8-12 tablet by ity of tablet 00:00: mouth in [address] morning [place] and 1 tablet at noon and 1 tablet in the evening. Take before meals. sodium 2021-0 Yes [id number] Apply to [facility] hypochlorit 8-12 area(s) ity o f e 0.25% 00:00: daily. [place] solution [facility] repaglinide 2021-0 Yes [id number] .5mg Take 1 Univers 0.5 mg 8-12 tablet by ity of tablet 00:00: mouth in [place] 00 the Medical morning Branch and 1 tablet at noon and 1 tablet in the evening. Take before meals. sodium 2022-0 Yes [id number] Apply to [facility] hypochlorit 8-12 area(s) ity o f e 0.25% 00:00: daily. [place] [address] Medical Branch repaglinide 2022-0 Yes [id number] .5mg Take 1 Univers 0.5 mg 8-12 tablet by ity of tablet 00:00: mouth in [place] [address] the Medical morning [place] and 1 tablet at noon and 1 tablet in the evening. Take before meals. sodium 2022-0 Yes [id number] Apply to [facility] hypochlorit 8-12 area(s) ity o f e 0.25% 00:00: daily. [place] [address] Medical Branch repaglinide 2022-0 Yes [id number] .5mg Take 1 Univers 0.5 mg 8-12 tablet by ity of tablet 00:00: mouth in [address] morning [place] and 1 tablet at noon and 1 tablet in the evening. Take before meals. sodium 2022-0 Yes [id number] Apply to [facility] [place] hypochlorit 8-12 area(s) ity o f e 0.25% 00:00: daily. [address] Branch repaglinide 2022-0 Yes [id number] .5mg Take 1 Univers 0.5 mg 8-12 tablet by ity of tablet 00:00: mouth in [place] [address] the [facility] morning [place] and 1 tablet at noon and 1 tablet in the evening. Take before meals. sodium 2022-0 Yes [id number] Apply to [place] hypochlorit 8-12 area(s) ity o f e 0.25% 00:00: daily. [place] [address] Medical Branch repaglinide 2022-0 Yes [id number] .5mg Take 1 Univers 0.5 mg 8-12 tablet by ity of tablet 00:00: mouth in [place] [address] the [facility] morning [place] and 1 tablet at noon and 1 tablet in the evening. Take before meals. sodium 2022-0 Yes [id number] Apply to [place] hypochlorit 8-12 area(s) ity o f e 0.25% 00:00: daily. [place] [address] Medical Branch repaglinide 2022-0 Yes [id number] .5mg Take 1 Univers 0.5 mg 8-12 tablet by ity of tablet 00:00: mouth in [address] morning [place] and 1 tablet at noon and 1 tablet in the evening. Take before meals. sodium 2022-0 Yes [id number] Apply to [place] hypochlorit 8-12 area(s) ity o f e 0.25% 00:00: daily. [address] repaglinide 2022-0 Yes [id number] .5mg Take 1 Univers 0.5 mg 8-12 tablet by ity of tablet 00:00: mouth in [address] morning [place] and 1 tablet at noon and 1 tablet in the evening. Take before meals. sodium 2022-0 Yes [id number] Apply to [place] hypochlorit 8-12 area(s) ity o f e 0.25% 00:00: daily. [address] repaglinide 2022-0 Yes [id number] .5mg Take 1 Univers 0.5 mg 8-12 tablet by ity of tablet 00:00: mouth in [address] and 1 tablet at noon and 1 tablet in the evening. Take before meals. sodium 2022-0 Yes [id number] Apply to [place] hypochlorit 8-12 area(s) ity o f e 0.25% 00:00: daily. [address] repaglinide 2022-0 Yes [id number] .5mg Take 1 Univers 0.5 mg 8-12 tablet by ity of tablet 00:00: mouth in [address] and 1 tablet at noon and 1 tablet in the evening. Take before meals. sodium 2022-0 Yes [id number] Apply to [place] hypochlorit 8-12 area(s) ity o f e 0.25% 00:00: daily. [address] sodium 2022-0 Yes [id number] Apply to [facility] [place] hypochlorit 8-12 area(s) ity o f e 0.25% 00:00: daily. [address] sodium 2022-0 Yes [id number] Apply to [facility] hypochlorit 8-12 area(s) ity o f e 0.25% 00:00: daily. [place] solution 00 Medical Branch sodium 2021- Yes [id number] Apply to [facility] hypochlorit 8-12 area(s) ity o f e 0.25% 00:00: daily. [place] solution 00 Medical Branch sodium Yes [id number] Apply to [facility] [place] hypochlorit 8-12 area(s) ity o f e 0.25% 00:00: daily. [place] solution 00 Medical Branch sodium 2021- Yes [id number] Apply to [facility] [place] hypochlorit 8-12 area(s) ity o f e 0.25% 00:00: daily. [place] solution 00 Medical Branch sodium Yes [id number] Apply to [facility] [place] hypochlorit 8-12 area(s) ity o f e 0.25% 00:00: daily. [place] solution 00 Medical Branch repaglinide 2021- No [id number] .5mg Take 1 Univers 0.5 mg 02-23 tablet by ity of tablet 00:00: 00:00 mouth in [place] 00 :00 the [facility] morning [place] and 1 tablet at noon and 1 tablet in the evening. Take before meals. repaglinide 2021-2021- No [id number] .5mg Take 1 Univers 0.5 mg 02-23 tablet by ity of tablet 00:00: 00:00 mouth in [place] 00 :00 the Medical morning [place] and 1 tablet at noon and 1 tablet in the evening. Take before meals. repaglinide 2021-0 2021- No [id number] .5mg Take 1 Univers 0.5 mg 02-23 tablet by ity of tablet 00:00: 00:00 mouth in [place] 00 :00 the Medical morning [place] and 1 tablet at noon and 1 tablet in the evening. Take before meals. apixaban 5 2021- No 5mg Take 1 Univ ers mg tablet 02-23 tablet by ity of 00:00: 04:59 mouth in [place] 00 :00 the [facility] morning [place] and 1 tablet in the evening. Do all this for 30 days. Indication s: Symtomatic Superficia l Vein thrombosis insulin 2021- No [id number] 24U inject 24 Univers glargine 02-23 Units ity of 100 unit/mL 00:00: 04:59 under the [place] injection 00 :00 skin at [facility] for 30 days. metFORMIN 2021-2021- No [id number] 500mg Take 1 Univers 500 mg 02-23 tablet by ity of tablet 00:00: 04:59 mouth in [place] 00 :00 the [facility] morning [place] and 1 tablet in the evening. Take with meals. Do all this for 30 days. dulaglutide 2021- No [id number] .75mg inject 1 Univers (TRULICITY) 02-23 Pen under it y of 0.75 mg/0.5 00:00: 04:59 the skin [place] mL PnIj 00 :00 weekly for Medica l 30 days. Branch apixaban 5 2021- No 5mg Take 1 Univ ers mg tablet 02-23 tablet by ity of 00:00: 04:59 mouth in [place] 00 :00 [facility] and 1 tablet in the evening. Do all this for 30 days. Indication s: Symtomatic Superficia l Vein thrombosis insulin 2021- No [id number] 24U inject 24 Univers glargine 02-23 Units ity of 100 unit/mL 00:00: 04:59 under the [place] injection 00 :00 skin at [facility] for 30 days. metFORMIN 2021-2021- No [id number] 500mg Take 1 Univers 500 mg 02-23 tablet by ity of tablet 00:00: 04:59 mouth in [place] 00 :00 the [facility] and 1 tablet in the evening. Take with meals. Do all this for 30 days. dulaglutide 2021-2021- No [id number] .75mg inject 1 Univers (TRULICITY) 02-23 Pen under it y of 0.75 mg/0.5 00:00: 04:59 the skin [place] mL PnIj 00 :00 weekly for Medica l 30 days. Branch apixaban 5 2021- No 5mg Take 1 Univ ers mg tablet 02-23 tablet by ity of 00:00: 04:59 mouth in [place] 00 :00 the [facility] Branch and 1 tablet in the evening. Do all this for 30 days. Indication s: Symtomatic Superficia l Vein thrombosis insulin 2021- No [id number] 24U inject 24 Univers glargine 02-23 Units ity of 100 unit/mL 00:00: 04:59 under the [place] injection 00 :00 skin [facility] for 30 days. metFORMIN 2021-0 2021- No [id number] 500mg Take 1 Univers 500 mg 02-23 tablet by ity of tablet 00:00: 04:59 mouth in [place] 00 :00 the [facility] morning [place] and 1 tablet in the evening. Take with meals. Do all this for 30 days. dulaglutide 2021- No [id number] .75mg inject 1 Univers (TRULICITY) 02-23 Pen under it y of 0.75 mg/0.5 00:00: 04:59 the skin [place] mL PnIj 00 :00 weekly for Medica l 30 days. Branch apixaban 5 2021- No 5mg Take 1 Univ ers mg tablet 02-23 tablet by ity of 00:00: 04:59 mouth in [place] 00 :00 the [facility] and 1 tablet in the evening. Do all this for 30 days. Indication s: Symtomatic Superficia l Vein thrombosis insulin 2021- No [id number] 24U inject 24 Univers glargine 02-23 Units ity of 100 unit/mL 00:00: 04:59 under the [place] injection 00 :00 skin [facility] for 30 days. metFORMIN 2021- No [id number] 500mg Take 1 Univers 500 mg 02-23 tablet by ity of tablet 00:00: 04:59 mouth in [place] 00 :00 the [facility] and 1 tablet in the evening. Take with meals. Do all this for 30 days. dulaglutide 2021-0 2021- No [id number] .75mg inject 1 Univers (TRULICITY) 02-23 Pen under it y of 0.75 mg/0.5 00:00: 04:59 the skin [place] mL PnIj 00 :00 weekly for Medica l 30 days. Branch linezolid No [id number] 600mg Take 1 Univers 600 mg 8-12 08-27 tablet by ity of tablet 00:00: 04:59 mouth [place] 00 :00 every 12 [facility] hours for 14 days. fluconazole No [id number] 400mg Take 2 Univers 200 mg 8-12 08-27 tablets by ity of tablet 00:00: 04:59 mouth in [place] 00 :00 the [facility] for 14 days. ciprofloxac No [id number] 500mg Take 2 Univers in HCl 250 8- 08-27 tablets by it y of mg tablet 00:00: 04:59 mouth in [place] 00 :00 the [facility] Branch and 2 tablets in the evening. Do all this for 14 days. linezolid No [id number] 600mg Take 1 Univers 600 mg 8-06 21-27 tablet by ity of tablet 00:00: 04:59 mouth [place] 00 :00 every 12 [facility] hours for 14 days. fluconazole No [id number] 400mg Take 2 Univers 200 mg 8-06 21-27 tablets by ity of tablet 00:00: 04:59 mouth in [place] 00 :00 the [facility] for 14 days. ciprofloxac No [id number] 500mg Take 2 Univers in HCl 250 8- 08-27 tablets by it y of mg tablet 00:00: 04:59 mouth in [place] 00 :00 the [facility] Branch and 2 tablets in the evening. Do all this for 14 days. linezolid No [id number] 600mg Take 1 Univers 600 mg 8-12 08-27 tablet by ity of tablet 00:00: 04:59 mouth [place] 00 :00 every 12 [facility] hours for 14 days. fluconazole 2021- No [id number] 400mg Take 2 Univers 200 mg 8-12 08-27 tablets by ity of tablet 00:00: 04:59 mouth in [place] 00 :00 the [facility] for 14 days. ciprofloxac 2021-2021- No [id number] 500mg Take 2 Univers in HCl 250 8-12 08-27 tablets by it y of mg tablet 00:00: 04:59 mouth in [place] 00 :00 the [facility] morning Branch and 2 tablets in the evening. Do all this for 14 days. linezolid No [id number] 600mg Take 1 Univers 600 mg 8-06 21-27 tablet by ity of tablet 00:00: 04:59 mouth [place] 00 :00 every 12 Medical ([facility]) Branch hours for 14 days. fluconazole 2021-2021- No [id number] 400mg Take 2 Univers 200 mg 8-27 tablets by ity of tablet 00:00: 04:59 mouth in [place] 00 :00 the [facility] for 14 days. ciprofloxac 2021- No [id number] 500mg Take 2 Univers in HCl 250 8-27 tablets by it y of mg tablet 00:00: 04:59 mouth in [facility] as 00 :00 the [facility] and 2 tablets in the evening. Do all this for 14 days. gabapentin 2021-2021- No [id number] 300mg Take 1 Univers 300 mg 8- 08-20 capsule by ity of capsule 00:00: 04:59 mouth in [place] 00 :00 the [facility] and 1 capsule at noon and 1 capsule in the evening. Do all this for 7 days. gabapentin 2021- No [id number] 300mg Take 1 Univers 300 mg 8- 08-20 capsule by ity of capsule 00:00: 04:59 mouth in [place] 00 :00 the [facility] and 1 capsule at noon and 1 capsule in the evening. Do all this for 7 days. gabapentin 2021- No [id number] 300mg Take 1 Univers 300 mg 8- 08-20 capsule by ity of capsule 00:00: 04:59 mouth in [place] 00 :00 the [facility] Branch and 1 capsule at noon and 1 capsule in the evening. Do all this for 7 days. gabapentin 2021- No [id number] 300mg Take 1 Univers 300 mg 8-12 08-20 capsule by ity of capsule 00:00: 04:59 mouth in [place] 00 :00 the [facility] Branch and 1 capsule at noon and 1 capsule in the evening. Do all this for 7 days. sodium 2021- No [id number] Apply to U nivers hypochlorit 02-23 area(s) ity of e 0.25% 00:00: 00:00 daily. [place] solution 00 :00 [facility] Branch repaglinide 2021- No [id number] .5mg Take 1 Univers 0.5 mg 02-23 tablet by ity of tablet 00:00: 00:00 mouth in [place] 00 :00 the [facility] Branch and 1 tablet at noon and 1 tablet in the evening. Take before meals. Do all this for 30 days. Sliding Subcutaneo Uni vers Scale 02-22 , TID ity of Insulin - 22:00: 12:34 MEALS+HS, [place] Lispro 00 :51 First dose Medical (HumaLOG) + (after Branch Fsbg last Testing modificati on) on [facility] 02/22/22 at 1700, Until Discontinu ed, Routine acetaminoph Yes 1000mg 1,000 mg, Univers en 11 Oral, Q8H, ity of (TYLENOL) 19:00: First dose [place] tablet 00 on [facility] Medical 1,000 mg 02/22/22 at [facility] h 1400, Until Discontinu ed, Routine methocarbam Yes 500mg 500 mg, [facility] oL 11 Oral, Q6H, ity of (ROBAXIN) 17:00: First dose [place] tablet 500 00 on [facility] Medical mg 02/22/22 at Branch 1200, Until Discontinu ed, Routine Sliding Subcutaneo Uni vers Scale 02-22 , TID ity of Insulin - 17:00: 19:31 MEALS+HS, [place] Lispro 00 :30 First dose Medical (HumaLOG) + (after Branch Fsbg last Testing modificati on) on [facility] 02/22/22 at 1200, Until Discontinu ed, Routine insulin NPH Yes 24U 24 Units, U nivers (HUMULIN N) 02-22 Subcutaneo it y of injection 14:00: us, Vniny FOX s 24 Units 00 First dose Medic al (after Branch last modificati on) on [facility] 02/22/22 at 0900, Until Discontinu ed, Routine insulin NPH 2021- No 20U 20 Units, Univers (HUMULIN N) 02-22 Subcutaneo i ty of injection 14:00: 19:31 us, QAM, [place] 20 Units 00 :02 First dose Medic al (after Branch last modificati on) on [facility] 02/22/22 at 0900, Until Discontinu ed, Routine insulin Yes 5U 5 Units, Univer s lispro 02-22 Subcutaneo ity of (human) 13:45: us, TID [place] (HumaLOG 00 MEALS, Medical U-100) First dose Branch injection 5 (after Units last modificati on) on [facility] 02/22/22 at 0845, Until Discontinu ed, Routine apixaban 0 Yes 5mg 5 mg, Univers (ELIQUIS) 02-22 Oral, BID, ity of tablet 5 mg 13:00: First dose [place] 00 on [facility] 02/22/22 at Branch 0800, Until Discontinu ed, Routine
Indicatio ns: DVT/PE celecoxib Yes 100mg 100 mg, Univ ers (CELEBREX) 02-22 Oral, BID ity of capsule 100 13:00: MEALS, [place] mg 00 First dose Medical on [facility] 02/22/22 at 0800, Until Discontinu ed, Routine gabapentin 0 Yes 300mg 300 mg, Uni vers (NEURONTIN) 02-22 Oral, TID, it y of capsule 300 13:00: First dose [place] mg 00 on [facility] 02/22/22 at Branch 0800, Until Discontinu ed, Routine HYDROmorpho 0 Yes 4mg 4 mg, Unive rs ne 02-22 Oral, TID, ity of (DILAUDID) 13:00: First dose [place] tablet 4 mg 00 (after Medica l last Branch modificati on) on [facility] 02/22/22 at 0800, Until Discontinu ed, Routine [...] heparin 2021- No 5000U 5,000 Univers (porcine) 8 08-11 Units, ity of injection 01:00: 12:21 Subcutaneo [place] 5,000 Units 00 :15 us, BID, Medi efrain First dose Branch on Sat02/21/22 at 2000, Until Discontinu ed, Routine insulin Yes 10U 10 Units, Unive rs lispro 8-10 Subcutaneo ity of (human) 22:00: us, TID [place] (HumaLOG 00 MEALS, Medical U-100) First dose [...] No 20U 20 Units, Univers (HUMULIN N) 8 08-11 Subcutaneo i ty of injection 22:00: 13:38 us, QPM, [place] 20 Units 00 :17 First dose Medic al (after Branch last modificati on) on Sat02/21/22 at 1700, Until Discontinu ed, Routine HYDROmorpho Yes 4mg 4 mg, Unive rs ne 8-10 Oral, ity of (DILAUDID) 15:00: TIDPRN, [place] tablet 4 mg 00 Starting Medi efrain on Sat Branch 02/21/22 at 1000, Until Discontinu ed, Routine, Pain (scale 7-10) HYDROmorpho 2021- No 4mg 4 mg, Univ ers ne 8-10 08-11 Oral, ity of (DILAUDID) 15:00: 11:04 TIDPRN, [place] tablet 4 mg 00 :00 Starting Medi efrain on Sat02/21/22 at 1000, Until Sat02/22/22 at 0604, Routine, Pain (scale 7-10) insulin NPH 2021- No 20U 20 Units, Univers (HUMULIN N) 02-21 Subcutaneo i ty of injection 14:00: 18:34 us, QAM, [place] 20 Units 00 :03 First dose Medic al (after Branch last modificati on) on Sat02/21/22 at 0900, Until Discontinu ed, Routine Sliding Yes Subcutaneo [facility] ers Scale 8-10 us, TID ity of Insulin - 13:00: MEALS+HS, [place] Lispro 00 First dose Medical (HumaLOG) + (after Fsbg last Testing modificati on) on Sat02/21/22 at 0800, Until Discontinu ed, Routine Sliding 2021- No Subcutaneo Uni vers Scale 02-21 us, TID ity of Insulin - 13:00: 13:39 MEALS+HS, [place] Lispro 00 :23 First dose Medical (HumaLOG) + (after Fsbg last Testing modificati on) on Sat02/21/22 at 0800, Until Discontinu ed, Routine FENTanyl PF 2021- No 25ug 25 mcg, [facility]a (SUBLIMAZE 02-21 Slow IV ity o f (PF)) 03:00: 03:26 Push, [place] injection 00 :00 ONCE, 1 Medical 25 mcg dose, On Sat02/20/22 at 2200, Routine Sliding 2021- No Subcutaneo Uni vers Scale 02-20- us, TID ity of Insulin - 22:00: [...] s (SENSORCAIN 00 :05 02/20/22 at Med ica E MPF) 0.5 1200, Branch % (5 [...] 17:56 INTRA [place] injection 00 :00 PROCEDURE, [facility] efrain Starting Branch on Sat02/20/22 at 1131, [...] [place] 00 :00 Starting Medical on Branch 02/20/22 at 1131, Until Sat02/20/22 at 1256, Routine, Intra-op lactated 2021- No IV Univers ringers IV 02-20 Infusion, ity of infusion 16:25: 17:56 CONTINUOUS [place] 00 :00 PRN, Medical Starting Branch on Sat02/20/22 at 1125, Until Sat02/20/22 at 1256, Routine, Intra-op insulin NPH 2021- No 34U 34 Units, Univers (HUMULIN N) 02-20 Subcutaneo i ty of injection 14:00: 12:44 us, QAM, [place] 34 Units 00 :50 First dose Medic al (after Branch last modificati on) on Sat02/20/22 at 0900, Until Discontinu ed, Routine insulin 2021- No 14U 14 Units, [facility] lispro 02-20 Subcutaneo ity of (human) 13:00: 12:44 us, TID [place] (HumaLOG 00 :50 MEALS, Medical U-100) First dose Branch injection (after 14 Units last modificati on) on Sat02/20/22 at 0800, Until Discontinu ed, Routine insulin NPH 2021- No 32U 32 Units, Univers (HUMULIN N) 02-19 Subcutaneo i ty of injection 22:00: 12:53 us, QPM, [place] 32 Units 00 :44 First dose Medic al (after Branch last modificati on) on Sat02/19/22 at 1700, Until Discontinu ed, Routine HYDROmorpho 2021- No 4mg 4 mg, [facility] ne 02-19 Oral, ity of (DILAUDID) 16:30: [...] Routine insulin 2021- No 15U 15 Units, [facility] lispro 02-19 Subcutaneo ity of (human) 13:30: [...] (after 18 Units last modificati on) on Sat02/18/22 at 1200, Until Discontinu ed, Routine insulin NPH 2021- No 37U 37 Units, Univers (HUMULIN N) 02-18 Subcutaneo i ty of injection 14:00: 14:15 us, QAM, [place] 37 Units 00 :14 First dose Medic al (after Branch last modificati on) on 02/18/22 at 0900, Until Discontinu ed, Routine Sliding Subcutaneo Uni vers Scale 02-18 us, TID ity of Insulin - 02:00: 12:53 MEALS+HS, [place] Lispro 00 :44 First dose Medical (HumaLOG) + (after Branch Fsbg last Testing modificati on) on 02/17/22 at 2100, Until Discontinu ed, Routine HYDROmorpho 2021- No 2mg 2 mg, Univ ers ne 02-18 Oral, ity of (DILAUDID) 00:17: 16:23 Q8HPRN, [place] tablet 2 mg 00 :26 Starting Medi efrain on Sat Branch 02/17/22 at 1917, Until 02/19/22 at 1123, Routine, Pain (scale 7-10) insulin No 17U 17 Units, Univ ers lispro 02-17 Subcutaneo ity of (human) 22:00: 14:15 us, TID [place] (HumaLOG 00 :14 MEALS, Medical U-100) First dose Branch injection (after 17 Units last modificati on) on 02/17/22 at 1700, Until Discontinu ed, Routine insulin NPH No 35U 35 Units, Univers (HUMULIN N) [...] 4mg 4 mg, Univ ers ne 02-17 0807 Oral, ity of (DILAUDID) 17:24: 00:17 Q8HPRN, [...] ed, [place] sodium Yes Topical, Univers hypochlorit 8- DAILY, ity of e 0.25% 14:00: First [place] (DAKIN'S 00 on Sat Medical SOLUTION) 02/17/22 at Branc h solution 0900, Until Discontinu ed, SAHARA insulin No 12U 12 Units, [facility] ers lispro 02-17 Subcutaneo ity of (human) [...] at 0900, Until Discontinu ed, Routine Sliding No Subcutaneo Uni vers Scale 02-17 us, [...] 0.2 mg Starting Branch on Sat02/16/22 at 2048, Until Sat02/16/22 at 2116, Routine, Pain (scale 7-10)
U se approved by (Faculty): [facility] KCL 20 2021- No 40meq 40 mEq, Univer s mEq/15 mL 02-16 0805 Oral, ity of solution 40 23:30: 22:58 ONCE, 1 [place] mEq 00 :00 dose, On Medical Fri 22 Branch at 1830, Routine Sliding Subcutaneo Uni vers Scale 02-1606 us, Q4H, ity of Insulin - 22:15: 12:23 First dose [place] Lispro 00 :48 on Fri Medical (HumaLOG) + 02/16/22 at [facility] Fsbg 1715, Testing Until Discontinu ed, [...] Medic al (8 %) IV Fri 02/16/22 Bran h Piggyback 4 at 1415, g Routine HYDROmorpho No .2mg 0.2 mg, Un [...] Until Discontinu ed, Routine HYDROmorpho 2021- No .2mg 0.2 mg, [...] 7-10) Sliding Subcutaneo Uni vers Scale 02-16 , Q4H, ity of Insulin - 01:00: 21:37 First dose [place] lispro 00 :09 on [facility] Medical (humaLOG) + 02/15/22 at [facility] Fsbg 1999, Testing Until Discontinu ed, Routine meropenem No 1000mg 1,000 mg, Univers (MERREM) 02-16 IV ity of 1,000 mg in 00:15: 02:14 [facility], [place] NaCl 0.9% 00 :44 Q8H ABX, Medica [...] No .2mg 0.2 mg, Un ela ne 02-16- Slow IV ity of (DILAUDID) 00:00: 23:13 Push, [place] injection 00 :00 ONCE, 1 Medical 0.2 mg dose, On Branch [facility] 02/15/22 at 1900, Routine
Use approved by (Faculty): [facility] HYDROmorpho 2021- No .2mg 0.2 mg, Un ela ne 02-15 Slow IV ity of (DILAUDID) 19:30: 18:59 [place], [place] injection 00 :00 ONCE, 1 Medical 0.2 mg dose, On Branch [facility] 02/15/22 at 1430, Routine
Use approved by (Faculty): [facility] cholestyram 2021- No Topical [place]a ine-nystati 02-15 (Apply To it y of n-zinc 18:29: 12:46 Affected [place] oxide 12 :35 Areas), Medical ointment PRN, Branch 1:1:1 Starting (COMPOUNDED on [facility] ) 02/15/22 at 1329, Until 02/19/22 at 0746, Routine, Wound care, Cuts, abrasions, and skin ulcers iopamidol 2021- No [id number] 60mL 60 mL, Univers (ISOVUE 02-15 Intravenou ity o f 370-500 mL) 17:25: 05:25 s, ONCE, 1 [place] injection 00 :00 dose, On Medica l 60 mL [facility] 02/15/22 Branch at 1230, Routine meropenem 2021- No 1000mg 1,000 mg, Univers (MERREM) 02-15 IV ity of 1,000 mg in 16:45: 20:14 [place]gy[place], [place] NaCl 0.9% 00 :00 ONCE, 1 Medical (NS) 50 mL dose, On Branc h MINI-BAG [facility] 02/15/22 at 1145, Administer over 30 Minutes, 50 mL
R estricted use approved by: NAMRATA 8TH FLOOR
R keegan for Anti-Infec tive: Documented Infection< br>Documen lester Infection Site: Urine
D uration of Therapy: 7 days pantoprazol Yes 40mg 40 mg, Univ ers e 02-15 Oral, ity of (PROTONIX) 14:00: DAILY, [place] EC tablet 00 First dose Medi efrain 40 mg on [facility] Branch 02/15/22 at 0900, Until Discontinu ed, Routine
Indicatio n for use: None of the above pantoprazol Yes 40mg 40 mg, Univ ers e 02-15 Oral, ity of (PROTONIX) 14:00: DAILY, [place] EC tablet 00 First dose Medi efrain 40 mg on [facility] Branch 02/15/22 at 0900, Until Discontinu ed, Routine
Indicatio n for use: None of the above heparin 2021-0 Yes 5000U 5,000 Univers (porcine) 02-15 Units, ity of injection 13:00: Subcutaneo [place] 5,000 Units 00 us, Q12H, Med ical First dose Branch on [facility] 02/15/22 at 0800, Until Discontinu ed, Routine heparin 2021-0 2021- No 5000U 5,000 Univers (porcine) 02-15 08-10 Units, ity of injection 13:00: 21:57 Subcutaneo [place] 5,000 Units 00 :33 us, Q12H, Med ical First dose Branch on [facility] [facility] 02/15/22 at 0800, Until Discontinu ed, Routine NaCl 0.9% 2021-0 Yes 10mL 10 mL, Univer s (NS) 8 Slow IV ity of injection 11:28: Push, [place]N, [place] 10 mL 11 Starting Medical on [facility] Branch 02/15/22 at 0628, Until Discontinu ed, Routine, line maintenanc e lidocaine 2021-0 Yes 5mL 5 mL, Univers 1% (PF) 02-15 Subcutaneo ity of (XYLOCAINE) 11:28: us, PRN, [place] injection 5 11 Starting Medi efrain mL on [place] Branch 02/15/22 at 0628, Until Discontinu ed, Routine, Local anesthesia NaCl 0.9% 2021-0 Yes 10mL 10 mL, Univer s (NS) 804 Slow IV ity of injection 11:28: Push, [place]N, [place] 10 mL 11 Starting Medical on [place] Branch 02/15/22 at 0628, Until Discontinu ed, Routine, line maintenanc e lidocaine 2021-0 Yes 5mL 5 mL, Univers 1% (PF) 8-04 Subcutaneo ity of (XYLOCAINE) 11:28: us, PRN, [...] Branch [place] 02/15/22 at 0145, Routine cefTRIAXone No 1000mg 1,000 mg, Univers (ROCEPHIN) 02-15 IV ity of 1,000 mg in 05:30: 06:00 [place], [place] NaCl 0.9% 00 :00 ONCE, 1 Medical (NS) 50 mL dose, On [facility] h MINI-BAG [place] 02/15/22 at 0030, Administer [...] at 999 Uni vers (NS) bolus 02-15 0804 mL/hr, ity of infusion 05:15: 07:58 1,000 mL, [place] 1,000 mL 00 :00 IV Medical Infusion, Branch ONCE, 1 dose, On [place] 8/4/22 at 0015, SAHARA D5W 0.45% 2021- No [...] No 12.5mg 12.5 mg, Univers e 02-10 0730 IV ity of (PHENERGAN) 21:30: 22:14 [place], [place] 12.5 mg in 00 :00 ONCE, 1 Medica l NaCl 0.9% dose, On Branch (NS) 50 mL Sat IV 02/10/22 at piggyback 1630, 50 mL lactated 0 Yes 1000mL at 50 Univer s ringers [...] at 1200, Until Discontinu ed, Routine insulin 0 Yes 40U 40 Units, Unive rs glargine 7-30 Subcutaneo ity o f (LANTUS 14:00: [place], DAILY, [place] U-100) 00 First dose Medical injection (after Branch 40 Units last modificati on) on 02/10/22 at 0900, Until Discontinu ed, Routine insulin NPH 2021- No [id number] 50U inject 50 Univers and regular 7-30 08-30 Units ity of human 70-30 00:00: 04:59 under the [place] 100 unit/mL 00 :00 skin every Me dical (70-30) morning Branch injection and evening for 30 days. proMETHazin 2021- No [id number] 12.5mg Insert 1 Univers e 12.5 mg 7-30 08-30 Suppositor ity of suppository 00:00: 04:59 y into [place] 00 :00 rectum Medical every 6 Branch (six) hours as needed for Nausea and Vomiting (N/V) for up to 30 days. proMETHazin 2021- No [id number] 12.5mg Take 0.5 Univers e 25 mg 7-30 08-30 tablets by ity o f tablet 00:00: 04:59 mouth [place] 00 :00 every 4 Medical (four) Branch hours as needed for Nausea and Vomiting (N/V) for up to 30 days. insulin NPH 2021- No [id number] 50U inject 50 Univers and regular 7-30 08-30 Units ity of human 70-30 00:00: 04:59 under the [place] 100 unit/mL 00 :00 skin every Me dical (70-30) morning Branch injection and evening for 30 days. proMETHazin 2021- No [id number] 12.5mg Insert 1 Univers e 12.5 mg 7-30 08-30 Suppositor ity of suppository 00:00: 04:59 y into [place] 00 :00 rectum Medical every 6 Branch (six) hours as needed for Nausea and Vomiting (N/V) for up to 30 days. proMETHazin 2021- No [id number] 12.5mg Take 0.5 Univers e 25 mg 7-30 08-30 tablets by ity o f tablet 00:00: 04:59 mouth [place] 00 :00 every 4 Medical (four) Branch hours as needed for Nausea and Vomiting (N/V) for up to 30 days. insulin NPH 2021- No [id number] 50U inject 50 Univers and regular 7-30 08-30 Units ity of human 70-30 00:00: 04:59 under the [place] 100 unit/mL 00 :00 skin every Me dical (70-30) morning Branch injection and evening for 30 days. proMETHazin 2021- No [id number] 12.5mg Insert 1 Univers e 12.5 mg 7-30 08-30 Suppositor ity of suppository 00:00: 04:59 y into [place] 00 :00 rectum Medical every 6 Branch (six) hours as needed for Nausea and Vomiting (N/V) for up to 30 days. proMETHazin 2021- No [id number] 12.5mg Take 0.5 Univers e 25 mg 7-30 08-30 tablets by ity o f tablet 00:00: 04:59 mouth [place] 00 :00 every 4 Medical (four) Branch hours as needed for Nausea and Vomiting (N/V) for up to 30 days. insulin NPH 2021- No [id number] 50U inject 50 Univers and regular 7-30 08-30 Units ity of human 70-30 00:00: 04:59 under the [place] 100 unit/mL 00 :00 skin every Me dical (70-30) morning Branch injection and evening for 30 days. proMETHazin 2021- No [id number] 12.5mg Insert 1 Univers e 12.5 mg 7-30 08-30 Suppositor ity of suppository 00:00: 04:59 y into [place] 00 :00 rectum Medical every 6 Branch (six) hours as needed for Nausea and Vomiting (N/V) for up to 30 days. proMETHazin 2021- No [id number] 12.5mg Take 0.5 Univers e 25 mg 7-30 08-30 tablets by ity o f tablet 00:00: 04:59 mouth [place] 00 :00 every 4 Medical (four) Branch hours as needed for Nausea and Vomiting (N/V) for up to 30 days. insulin NPH 2021- No [id number] 50U inject 50 Univers and regular 7-30 08-30 Units ity of human 70-30 00:00: 04:59 under the [place] 100 unit/mL 00 :00 skin every Me dical (70-30) morning Branch injection and evening for 30 days. proMETHazin 2021- No [id number] 12.5mg Insert 1 Univers e 12.5 mg 7-30 08-30 Suppositor ity of suppository 00:00: 04:59 y into [place] 00 :00 rectum Medical every 6 Branch (six) hours as needed for Nausea and Vomiting (N/V) for up to 30 days. proMETHazin 2021- No [id number] 12.5mg Take 0.5 Univers e 25 mg 7-30 08-30 tablets by ity o f tablet 00:00: 04:59 mouth [place] 00 :00 every 4 Medical (four) Branch hours as needed for Nausea and Vomiting (N/V) for up to 30 days. proMETHazin 2021- No [id number] 12.5mg Insert 1 Univers e 12.5 mg 7-30 08-30 Suppositor ity of suppository 00:00: 04:59 y into [place] 00 :00 rectum Medical every 6 Branch (six) hours as needed for Nausea and Vomiting (N/V) for up to 30 days. proMETHazin 2021- No [id number] 12.5mg Take 0.5 Univers e 25 mg 7-30 08-30 tablets by ity o f tablet 00:00: 04:59 mouth [place] 00 :00 every 4 Medical (four) Branch hours as needed for Nausea and Vomiting (N/V) for up to 30 days. proMETHazin 2021- No [id number] 12.5mg Insert 1 Univers e 12.5 mg 7-30 08-30 Suppositor ity of suppository 00:00: 04:59 y into [place] 00 :00 rectum Medical every 6 Branch (six) hours as needed for Nausea and Vomiting (N/V) for up to 30 days. proMETHazin 2021- No [id number] 12.5mg Take 0.5 Univers e 25 mg 7-30 08-30 tablets by ity o f tablet 00:00: 04:59 mouth [place] 00 :00 every 4 Medical (four) Branch hours as needed for Nausea and Vomiting (N/V) for up to 30 days. proMETHazin 2021- No [id number] 12.5mg Insert 1 Univers e 12.5 mg 7-30 08-30 Suppositor ity of suppository 00:00: 04:59 y into [place] 00 :00 rectum Medical every 6 Branch (six) hours as needed for Nausea and Vomiting (N/V) for up to 30 days. proMETHazin 2021- No [id number] 12.5mg Take 0.5 Univers e 25 mg 7-30 08-30 tablets by ity o f tablet 00:00: 04:59 mouth [place] 00 :00 every 4 Medical (four) Branch hours as needed for Nausea and Vomiting (N/V) for up to 30 days. proMETHazin 2021- No [id number] 12.5mg Insert 1 Univers e 12.5 mg 7-30 08-30 Suppositor ity of suppository 00:00: 04:59 y into [place] 00 :00 rectum Medical every 6 Branch (six) hours as needed for Nausea and Vomiting (N/V) for up to 30 days. proMETHazin 2021- No [id number] 12.5mg Take 0.5 Univers e 25 mg 7-30 08-30 tablets by ity o f tablet 00:00: 04:59 mouth [place] 00 :00 every 4 Medical (four) Branch hours as needed for Nausea and Vomiting (N/V) for up to 30 days. insulin NPH 2021- No [id number] 50U inject 50 Univers and regular 7-30 08-12 Units ity of human 70-30 00:00: 00:00 under the [place] 100 unit/mL 00 :00 skin every Me dical (70-30) morning Branch injection and evening for 30 days. insulin 2021- No 5U 5 Units, Unive rs lispro 02-09 Subcutaneo ity of (human) 17:00: 14:45 us, TID [place] (HumaLOG 00 :04 MEALS, Medical U-100) First dose Branch injection 5 (after Units last modificati on) on Sat02/09/22 at 1200, Until Discontinu ed, Routine HYDROmorphO 2021- No 1mg 1 mg, Univ ers ne 02-09 Intravenou ity of (DILAUDID) 16:54: 16:53 s, Q6HPRN, [place] injection 1 28 :28 Starting Medi efrain mg on Sat02/09/22 at 1154, Until Sat02/11/22 at 1153, Routine, Breakthrou gh pain only
[...] 10 mL 34 Starting Medical on Sat [place] 02/08/22 at 2004, Until Discontinu ed, Routine, line maintenanc e lidocaine Yes 5mL 5 mL, Univers 1% (PF) 02-09 Subcutaneo ity of (XYLOCAINE) 01:04: us, PRN, [place] injection 5 34 Starting Medi efrain mL on Sat [place] 02/08/22 at 2004, Until Discontinu ed, Routine, Local anesthesia nystatin Yes Topical, Unive rs (NYSTOP) 02-09 BID, First ity o f powder 01:00: dose on [place] u Medical 02/08/22 at Branch 2000, Until Discontinu ed, Routine Sliding Yes Subcutaneo Univ ers Scale 02-08 us, TID ity of Insulin - 22:00: MEALS+HS, [place] Lispro 00 First dose Medical (HumaLOG) + (after [place] [facility] last Testing modificati on) on Sat02/08/22 at 1700, Until Discontinu ed, Routine insulin No 3U 3 Units, Unive rs lispro 02-08 Subcutaneo ity of (human) 22:00: 14:02 , TID [place] (HumaLOG 00 :21 MEALS, Medical U-100) First [...] 07 Starting Medi efrain tablet 1 on [facility] Branch tablet 02/08/22 at 1454, Until Discontinu [...] No 200mg 200 mg, U nivers (DIFLUCAN) 02-0828 Oral, ity of tablet 200 14:00: 19:47 [...] 02-08 IV ity of (PHENERGAN) 02:15: 01:35 [place], [place] 12.5 mg in 00 :00 ONCE, 1 Medica l NaCl 0.9% dose, On Branch (NS) 50 mL Wed IV 02/07/22 at piggyback 211, Routine insulin No 10U 10 Units, [facility] ers lispro 02-08 Subcutaneo ity of (human) [...] efrain mg on Wed Branch 02/07/22 at 2001, Until [place] 02/08/22 at 1445, Routine, Pain (scale 7-10)
U se approved by (Faculty): ADC PROVIDER Sliding 2021- No Subcutaneo Uni vers Scale 02-08- us, Q3H, ity of Insulin - 01:00: [...] on Sat Medical (HumaLOG) + 02/07/22 at [facility] Fs[facility] 1700, Testing Until Discontinu ed, Routine acetaminoph Yes 1000mg 1,000 mg, Univers en 02-07 Oral, Q8H, ity of (TYLENOL) 21:15: First dose [place] tablet 00 on Sat Medical 1,000 mg 02/07/22 at [facility] h 1615, Until Discontinu ed, Routine FENTanyl [...] changes. dextrose 50 Yes 25mL 25 mL, [facility] ers % in water 02-07 Slow IV [...] doses, Medical mEq/100 mL First dose [facility] RTU IVPB 20 on Sat mEq 02/07/22 [...] mEq in 00 :42 , Starting Medi efrani NaCl 0.45% on Sat Branch (1/2NS) IV 02/07/22 at Solution 1045, Until Sat02/07/22 at 1215, 1,000 mL, at 150 mL/hr ondansetron Yes 4mg 4 mg, Slow Univers (ZOFRAN 02-07 IV Push, ity of (PF)) 15:38: Q6HPRN, [place] injection 4 50 Nausea and Me dical [...] No 200mg at 100 Un ela (DIFLUCAN) 7-27 07-28 mL/hr, IV ity of [place] 13:45: [...] 1000mL at 999 Uni vers (NS) IV 02-07- mL/hr, IV ity of infusion 11:45: 11:49 [...] ONCE, 1 dose, On e 02/06/22 at 2200, STAT insulin 2021- No 10U 10 Units, Univ ers regular 02-07 Subcutaneo ity o f human 01:30: 00:37 us, ONCE, [place] (HUMULIN R) 00 :00 1 dose, On Me dical injection Tue Branch 10 Units 02/06/22 at 2030, Routine FENTanyl PF 2021- No 50ug 50 mcg, Un ela (SUBLIMAZE 02-07 Slow IV ity o f (PF)) 01:30: 00:28 Push, [place] injection 00 :00 ONCE, 1 Medical 50 mcg dose, On Branch Sat02/06/22 at 2030, Routine NaCl 0.9% 2021- No 1000mL at 999 Uni vers (NS) bolus 02-07 mL/hr, ity of infusion 00:30: 02:09 1,000 mL, [place] 1,000 mL 00 :00 IV Medical Infusion, Branch ONCE, 1 dose, On Tu02/06/22 at 1930, STAT iopamidol 2021- No [id number] 65mL 65 mL, Univers (ISOVUE 01-27 [id number] Intravenou ity of 370-500 mL) 02:29: 02:45 s, ONCE, 1 [place] injection 00 :00 dose, On Medica l 65 mL Fri Branch 01/26/22 at 2145, Routine FENTanyl PF 2021- No 150ug 150 mcg, Univers (SUBLIMAZE 01-27 Slow IV ity o f (PF)) 01:32: 01:44 Push, [place] injection 00 :00 ONCE, 1 Medical 150 mcg dose, On Branch Sat01/26/22 at 2045, Routine FENTanyl PF 2021- No 50ug 50 mcg, Un ela (SUBLIMAZE 01-27 Slow IV ity o f (PF)) 00:30: 23:32 Push, [place] injection 00 :00 ONCE, 1 Medical 50 mcg dose, On Branch Sat01/26/22 at 1930, Routine insulin 2021- No 10U 10 Units, Univ ers regular 01-27 Subcutaneo ity o f human 00:30: 23:28 us, ONCE, [place] (HUMULIN R) 00 :00 1 dose, On Me dical injection Fri Branch 10 Units 01/26/22 at 1930, Routine clindamycin 2021- No [id number] 600mg Take 2 Univers 300 mg 01-26 [id number] capsules ity of capsule 00:00: 04:59 by mouth 4 [place] 00 :00 (four) Medical times Branch daily for 7 days. clindamycin 2021- No [id number] 600mg Take 2 Univers 300 mg 01-26 [id number] capsules ity of capsule 00:00: 04:59 by mouth 4 [place] 00 :00 (four) Medical times Branch daily for 7 days. insulin NPH 2021- No 8U 8 Units, U nivers and regular 01-17 07-06 Subcutaneo i ty of human 70-30 12:30: 11:30 us, ONCE, [place] (70-30 00 :00 1 dose, On Medical U-100 01/17/22 Branch INSULIN) at 0730, 100 unit/mL [place] (70-30) injection 8 Units insulin Yes [id number] 20U inject 20 U nivers glargine 7-02 Units ity of 100 unit/mL 00:00: under the [place] injection 00 skin Medical daily. Branch insulin Yes [id number] 20U inject 20 U nivers glargine 7-02 Units ity of 100 unit/mL 00:00: under the [place] injection 00 skin Medical daily. Branch insulin Yes [id number] 20U inject 20 U nivers glargine 7-02 Units ity of 100 unit/mL 00:00: under the [place] injection 00 skin Medical daily. Branch insulin Yes [id number] 20U inject 20 U nivers glargine 7-02 Units ity of 100 unit/mL 00:00: under the [place] injection 00 skin Medical daily. Branch insulin 2021- No [id number] 20U inject 20 Univers glargine 7-02 07-30 Units ity of 100 unit/mL 00:00: 00:00 under the [place] injection 00 :00 skin Medical daily. Branch insulin 2021- No [id number] 20U inject 20 Univers glargine 01-13 07-30 Units ity of 100 unit/mL 00:00: 00:00 under the [place] injection 00 :00 skin Medical daily. Branch insulin Yes 20U 20 Units, Unive rs glargine 01-12 Subcutaneo ity o f (LANTUS 14:00: us, DAILY, [place] U-100) 00 First dose Medical injection (after Branch 20 Units last modificati on) on Sat01/12/22 at 0900, Until Discontinu ed, Routine insulin 2021- No [id number] 26U inject 26 Univers lispro, 01-12- Units ity of human, 100 00:00: 04:59 under the [place] unit/mL 00 :00 skin 3 Medical injection (three) Branch times daily before meals for 30 days. insulin 2021- No [id number] 26U inject 26 Univers lispro, 01-12- Units ity of human, 100 00:00: 04:59 under the [place] unit/mL 00 :00 skin 3 Medical injection (three) Branch times daily before meals for 30 days. insulin 2021- No [id number] 26U inject 26 Univers lispro, 01-12 08-01 Units ity of human, 100 00:00: 04:59 under the [place] unit/mL 00 :00 skin 3 Medical injection (three) Branch times daily before meals for 30 days. insulin 2021- No [id number] 26U inject 26 Univers lispro, 01-12- Units ity of human, 100 00:00: 04:59 under the [place] unit/mL 00 :00 skin 3 Medical injection (three) Branch times daily before meals for 30 days. insulin 2021- No [id number] 26U inject 26 Univers lispro, 01-12 07-30 Units ity of human, 100 00:00: 00:00 under the [place] unit/mL 00 :00 skin 3 Medical injection (three) Branch times daily before meals for 30 days. insulin 2021- No [id number] 26U inject 26 Univers lispro, 01-12 07-30 Units ity of human, 100 00:00: 00:00 under the [place] unit/mL 00 :00 skin 3 Medical injection (three) Branch times daily before meals for 30 days. insulin Yes 26U 26 Units, Unive rs lispro -30 Subcutaneo ity of (human) 22:15: us, [place] (HumaLOG 00 First dose Medic al U-100) (after Branch injection last 26 Units modificati on) on Libra 01/11/22 at 1715, Until Discontinu ed, Routine insulin 2021- No 22U 22 Units, Univ ers lispro 01-11-30 Subcutaneo ity of (human) 16:30: 21:36 us, TIDAC, [place] (HumaLOG 00 :36 First dose Medic al U-100) (after Branch injection last 22 Units modificati on) on [place] 01/11/22 at 1130, Until Discontinu ed, Routine insulin 2021- No 10U 10 Units, Univ ers glargine 01-11- Subcutaneo ity of (LANTUS 14:00: 17:40 us, DAILY, [place] U-100) 00 :01 First dose Medical injection on Sat Branch 10 Units 01/11/22 at 0900, Until Discontinu ed, Routine insulin Yes 52U 52 Units, Unive rs glargine 01-11 Subcutaneo ity o f (LANTUS 02:00: us, [facility], [place] U-100) 00 First dose Medical injection on Sat Branch 52 Units 01/10/22 at 2100, Until Discontinu ed, Routine enoxaparin Yes 40mg 40 mg, Unive rs (LOVENOX) 01-10 Subcutaneo ity of injection 22:00: us, DAILY, [place] 40 mg 00 First dose Medical on Sat Branch 01/10/22 at 1700, Until Discontinu ed, Routine Sliding Yes Subcutaneo Univ ers Scale 6-29 us, TID ity of Insulin - 17:00: [...] ity of 1,000 mg in 13:00: [place], [place] NaCl 0.9% 00 Q24H ABX, Medic al (NS) 50 mL First dose Bra nch MINI-BAG on Sat01/10/22 at 0800, Until Discontinu ed, Administer over 30 Minutes, 50 mL
Reas on for Anti-Infec tive: Documented Infection< br>Documen lester Infection Site: Urine
D uration of Therapy: 7 days Sliding Subcutaneo Uni vers Scale 01-10 , TID ity of Insulin - 13:00: 15:19 MEALS+HS, [place] Lispro 00 :51 First dose Medical (HumaLOG) + on Sat Fsbg 01/10/22 at Testing 0800, Until Discontinu ed, Routine insulin No 15U 15 Units, [facility] ers lispro 01-10 Subcutaneo ity of (human) 12:30: 15:19 us, TIDAC, [place] (HumaLOG 00 :51 First dose Medic al U-100) on Sat Branch injection 01/10/22 at 15 Units 0730, Until Discontinu ed, Routine HYDROmorpho 2022-0 2022- No 1mg 1 mg, Slow Univers ne 01-10 0701 IV Push, ity of (DILAUDID) 11:32: 11:31 Q6HPRN, [place] injection 1 00 :00 Starting Medi efrain mg on Sat Branch 01/10/22 at 0632, Until Sat01/12/22 at 0631, Routine, Pain (scale 7-10)
U se approved by (Faculty): [facility] PROVIDER NaCl 0.9% No 1000mL at 999 [...] 01-10 Oral, ity of (TYLENOL) 10:52: Q6HPRN, [place] tablet 650 33 Starting Medic al mg on Sat01/10/22 at 0552, Until Discontinu ed, Routine, Pain [...] IV ity of human 07:00: 05:53 [place], [place] (HUMULIN R) 00 :00 ONCE, 1 Medic al injection dose, On Branch 10 Units Sat01/10/22 at 0200, STAT FENTanyl PF 2021- No 50ug 50 mcg, Un ela (SUBLIMAZE 01-10 Slow IV ity o f (PF)) 04:15: 04:04 Push, [place] injection 00 :00 ONCE, 1 Medical 50 mcg dose, On Branch Sat01/09/22 at 2315, STAT NaCl 0.9% 2021- No 1000mL at 999 Uni vers (NS) bolus 01-10 mL/hr, ity of infusion 04:00: 05:53 1,000 mL, [place] 1,000 mL 00 :00 IV Medical Infusion, Branch ONCE, 1 dose, On Sat01/09/22 at 2300, STAT insulin 2021- No 10U 10 Units, Univ ers regular 01-10 Slow IV ity of human 04:00: 03:48 Push, [place] (HUMULIN R) 00 :00 ONCE, 1 Medic al injection dose, On Branch 10 Units 01/09/22 at 2300, STAT amLODIPine No [id number] 10mg Take 1 Univers 10 mg 6-26 07-30 tablet by ity of tablet 00:00: 00:00 mouth [place] 00 :00 daily for Medical 30 days. Branch amLODIPine No [id number] 10mg Take 1 Univers 10 mg 6-26 07-30 tablet by ity of tablet 00:00: 00:00 mouth [place] 00 :00 daily for Medical 30 days. Branch amLODIPine No [id number] 10mg Take 1 Univers 10 mg 6-26 07-27 tablet by ity of tablet 00:00: 04:59 mouth [place] 00 :00 daily for Medical 30 days. Branch amLODIPine No [id number] 10mg Take 1 Univers 10 mg 6-26 07-27 tablet by ity of tablet 00:00: 04:59 mouth [place] 00 :00 daily for Medical 30 days. Branch amLODIPine No [id number] 10mg Take 1 Univers 10 mg 6-26 07-27 tablet by ity of tablet 00:00: 04:59 mouth [place] 00 :00 daily for Medical 30 days. Branch amLODIPine No [id number] 10mg Take 1 Univers 10 mg 6-26 07-27 tablet by ity of tablet 00:00: 04:59 mouth [place] 00 :00 daily for Medical 30 days. Branch amLODIPine No [id number] 10mg Take 1 Univers 10 mg 6-26 07-27 tablet by ity of tablet 00:00: 04:59 mouth [place] 00 :00 daily for Medical 30 days. Branch amLODIPine No [id number] 10mg Take 1 Univers 10 mg 6-26 07-27 tablet by ity of tablet 00:00: 04:59 mouth [place] 00 :00 daily for Medical 30 days. Branch amLODIPine No [id number] 10mg Take 1 Univers 10 mg 6-26 07-27 tablet by ity of tablet 00:00: 04:59 mouth [place] 00 :00 daily for Medical 30 days. [place] HYDROmorpho 2021- No .5mg 0.5 mg, Un ela ne 01-06 Slow IV ity of (DILAUDID) 18:00: 17:11 Push, [place] injection 00 :00 ONCE, 1 Medical 0.5 mg dose, On Branch [facility] 01/06/22 at 1300, Routine
Use approved by (Faculty): ADC PROVIDER cefTRIAXone Yes 1000mg 1,000 mg, Univers (ROCEPHIN) 01-06 IV ity of 1,000 mg in 15:00: [place], [place] NaCl 0.9% 00 Q24H ABX, Medic al (NS) 50 mL First dose [facility] MINI-BAG on 01/06/22 at 1000, Until Discontinu ed, Administer over 30 Minutes, 50 mL
Reas on for Anti-Infec tive: Documented Infection< br>Documen lester Infection Site: Urine
D uration of Therapy: 7 days fluconazole Yes 200mg 200 mg, Un ela (DIFLUCAN) 01-06 Oral, ity of tablet 200 14:00: DAILY, [place] mg 00 First dose Medical on Sat [place] 01/06/22 at 0900, Until Discontinu ed, SAHARA
Re ason for Anti-Infec tive: Documented Infection< br>Documen lester Infection Site: Urine
D uration of Therapy: 7 days Sliding Yes Subcutaneo Univ ers Scale 01-06 us, TID ity of Insulin - 13:00: MEALS+HS, [place] Lispro 00 First dose Medical (HumaLOG) + on Sat [place] Fs[facility] 01/06/22 at Testing 0800, Until Discontinu ed, Routine hydromorpho 2021- No 4ug Take 4 mcg Univers ne HCl 01-06 by mouth ity of (HYDROMORPH 11:55: 00:00 every 12 [place] ONE ORAL) 19 :00 (twelve) Medica l hours. [place] insulin 2021- No 10U 10 Units, Univ [...] ity of bolus 05:50: PRN - SEE [place] infusion 51 INSTRUCTIO Medic al 250 mL [...] Subcutaneo ity o f (LANTUS 02:00: us, [facility], [place] U-100) 00 First dose Medical injection on Sat Branch 52 Units 01/05/22 at 2100, Until Discontinu ed, Routine Sliding 2021- No Subcutaneo Uni vers Scale 01-0625 us, TID ity of Insulin - 02:00: 05:50 MEALS+HS, [place] Lispro 00 :40 First dose Medical (HumaLOG) + on Sat Branch Fsbg 01/05/22 at Testing 2100, Until Discontinu ed, Routine ciprofloxac 2021- No [id number] 500mg Take 1 Univers in HCl 500 01-06 07-06 tablet by ity of mg tablet 00:00: 04:59 mouth [place] 00 :00 every 12 Medical (twelve) Branch hours for 10 days. ciprofloxac 2021- No [id number] 500mg Take 1 Univers in HCl 500 6-05 02- tablet by ity of mg tablet 00:00: 04:59 mouth [place] 00 :00 every 12 Medical (twelve) Branch hours for 10 days. ciprofloxac 2021- No [id number] 500mg Take 1 Univers in HCl 500 -05 02- tablet by ity of mg tablet 00:00: 04:59 mouth [place] 00 :00 every 12 Medical (twelve) Branch hours for 10 days. HYDROmorpho 2021- No [id number] 4mg Take 1 Uni vers ne 4 mg 6-25 - tablet by ity of tablet 00:00: 04:59 mouth [place] 00 :00 every 12 Medical (twelve) Branch hours for 7 days. Indication s: acute pain HYDROmorpho 2021- No [id number] 4mg Take 1 Uni vers ne 4 mg 6-25 - tablet by ity of tablet 00:00: 04:59 mouth [place] 00 :00 every 12 Medical (twelve) Branch hours for 7 days. Indication s: acute pain HYDROmorpho 2021- No [id number] 4mg Take 1 Uni vers ne 4 mg 6-05 02- tablet by ity of tablet 00:00: 04:59 mouth [place] 00 :00 every 12 Medical (twelve) Branch hours for 7 days. Indication s: acute pain HYDROmorpho 2021-2021- No [id number] 4mg Take 1 Uni vers ne 4 mg 6-25 - tablet by ity of tablet 00:00: 04:59 mouth [place] 00 :00 every 12 Medical (twelve) Branch hours for 7 days. Indication s: acute pain ciprofloxac 2021- No [id number] 500mg Take 1 Univers in HCl 500 6-05 02- tablet by ity of mg tablet 00:00: 00:00 mouth [place] 00 :00 every 12 Medical (twelve) Branch hours for 10 days. NaCl 0.9% 2021- No 1000mL at 150 Uni vers (NS) bolus 6-24 06-24 mL/hr, ity of infusion 23:15: 23:38 1,000 mL, [place] 1,000 mL 00 :00 IV Medical Piggyback, [place] ONCE, 1 dose, On Sat01/05/22 at 1815, STAT HYDROmorpho 2021-0 2021- No 1mg 1 mg, Slow Univers ne 01-05-24 IV Push, ity of (DILAUDID) 22:15: 21:46 ONCE, 1 [place] injection 1 00 :00 dose, On Medi efrain mg Sat01/05/22 at 1715, Routine
Use approved by (Faculty): ADC PROVIDER enoxaparin 2021-0 Yes 40mg 40 mg, Unive rs (LOVENOX) [...] 01/05/22 at 0800, Until Discontinu ed insulin 2021-0 Yes 15U 15 Units, Unive rs lispro -24 Subcutaneo ity of (human) 12:30: us, TIDAC, [place] (HumaLOG 00 First dose Medic al U-100) on Sat Branch injection 01/05/22 at 15 Units 0730, Until Discontinu ed, Routine amLODIPine 2022-0 Yes 10mg 10 mg, Unive rs (NORVASC) 01-05 Oral, ity of tablet 10 08:45: DAILY, [place] mg 00 First dose Medical on Sat Branch 01/05/22 at 0345, Until Discontinu ed, Routine ertapenem 2021- No 1000mg 1,000 mg, Univers (INVANZ) 01-05 0625 IV ity of 1,000 mg in 08:45: 13:51 Piggyback, [place] NaCl 0.9% 00 :26 Q24H ABX, Medic al (NS) 50 mL First dose [facility] MINI-BAG on Sat01/05/22 at 0345, Until Discontinu [...] 01-05 Oral, ity of (TYLENOL) 07:37: Q6HPRN, [place] tablet 650 37 Starting Medic al mg on Sat Branch 01/05/22 at 0237, Until Discontinu ed, Routine, Pain (scale 1-3) iopamidol 2021- No [id number] 100mL 100 mL, Univers (ISOVUE 01-05 Intravenou ity o f 370-500 mL) 06:15: 05:05 s, ONCE, 1 [place] injection 00 :00 dose, On Medica l 100 mL Sat Branch 01/05/22 at 0115, Routine insulin 2021- No 10U 10 Units, Univ ers regular 01-05-24 IV Push, ity of human 06:00: 05:20 [...] On Libra 01/04/22 at 2315, STAT hydromorpho 0 Yes 4ug Take 4 mcg Univers ne HCl 6-10 by mouth ity of (HYDROMORPH 19:50: every 12 [place] ONE ORAL) 08 (twelve) Medica l hours. [place] magnesium Yes 400mg 400 mg, Univ ers oxide 6-10 Oral, ity of (MAG-OX 14:00: DAILY, [place] 400) tablet 00 First dose Me dical 400 mg on Fri Branch 12/22/21 at 0900, Until Discontinu ed, Routine HYDROmorpho 0 2021- No 1mg 1 mg, Slow Univers ne 6-10 06-10 IV Push, ity of (DILAUDID) 05:15: 04:42 ONCE, 1 [place] injection 1 00 :00 dose, On Medi efrain mg Fri Branch 12/22/21 at 0015, Routine
Use approved by (Faculty): [facility] PROVIDER acetaminoph Yes 1000mg 1,000 mg, Univers en 6-10 Oral, Q8H, ity of (TYLENOL) 03:00: First dose [place] tablet 00 on [place] Medical 1,000 mg 12/21/21 at Branch 2200, Until Discontinu ed, Routine insulin 2021-0 Yes [id number] 52U inject 52 U nivers glargine 6-10 Units ity of 100 unit/mL 00:00: under the [place] injection 00 skin at Medical bedtime. Branch insulin 2021-0 Yes [id number] 52U inject 52 U nivers glargine 6-10 Units ity of 100 unit/mL 00:00: under the [place] injection 00 skin at Medical bedtime. Branch insulin 2021-0 Yes [id number] 52U inject 52 U nivers glargine 6-10 Units ity of 100 unit/mL 00:00: under the [place] injection 00 skin at Medical bedtime. Branch insulin 2021-0 Yes [id number] 52U inject 52 U nivers glargine 6-10 Units ity of 100 unit/mL 00:00: under the [place] injection 00 skin at Medical bedtime. Branch insulin 2021-0 Yes [id number] 52U inject 52 U nivers glargine 6-10 Units ity of 100 unit/mL 00:00: under the [place] injection 00 skin at Medical bedtime. Branch insulin 2021-0 Yes [id number] 52U inject 52 U nivers glargine 6-10 Units ity of 100 unit/mL 00:00: under the [place] injection 00 skin at Medical bedtime. Branch insulin 2021-0 Yes [id number] 52U inject 52 U nivers glargine 6-10 Units ity of 100 unit/mL 00:00: under the [place] injection 00 skin at Medical bedtime. Branch insulin 2021-0 Yes [id number] 52U inject 52 U nivers glargine 6-10 Units ity of 100 unit/mL 00:00: under the [place] injection 00 skin at Medical bedtime. Branch insulin 2021-0 2021- No [id number] 52U inject 52 [facility] glargine 6-10 07-30 Units ity of 100 unit/mL 00:00: 00:00 under the [place] injection 00 :00 skin at Medical bedtime. Branch insulin 2021-0 2021- No [id number] 52U inject 52 [facility] glargine 6-10 07-30 Units ity of 100 unit/mL 00:00: 00:00 under the [place] injection 00 :00 skin at Medical bedtime. Branch Insulin 2021- No [id number] Use as Uni vers Safety 12-22 directed ity of [place], 00:00: 04:59 [place] Disp, 29 00 :00 Medical gauge x Branch 3/16" Ndle Insulin 2021- No [id number] Use as Uni vers Safety 12-22 directed ity of [place], 00:00: 04:59 [place] Disp, 29 00 :00 Medical gauge x Branch 3/16" Ndle Insulin 2021- No [id number] Use as Uni vers Safety 12-22 directed ity of [place], 00:00: 04:59 [place] Disp, 29 00 :00 Medical gauge x Branch 3/16" Ndle Insulin 2021- No [id number] Use as Uni vers Safety 12-22 directed ity of [place], 00:00: 04:59 [place] Disp, 29 00 :00 Medical gauge x Branch 3/16" Ndle Insulin 2021- No [id number] Use as Uni vers Safety 12-22 directed ity of [place], 00:00: 04:59 [place] Disp, 29 00 :00 Medical gauge x Branch 3/16" Ndle Insulin 2021- No [id number] Use as Uni vers Safety 12-22 directed ity of [place], 00:00: 04:59 [place] Disp, 29 00 :00 Medical gauge x Branch 3/16" Ndle Insulin 2021- No [id number] Use as Uni vers Safety 12-22 directed ity of [place], 00:00: 04:59 [place] Disp, 29 00 :00 Medical gauge x Branch 3/16" Ndle fluconazole 2021- No [id number] 200mg Take 1 Univers 200 mg 12-22 [...] s mg 00 First dose Medical on Sat12/20/21 at 0900, Until Discontinu ed, Routine insulin No 10U 10 Units, [facility] ers glargine 12-20 Subcutaneo ity of (LANTUS [...] PROVIDER HYDROmorpho 2021- No 4mg 4 mg, [facility] ers ne 12-20 Oral, ity of (DILAUDID) 08:40: 16:28 [id number], [place] tablet 4 mg 04 :14 [...] of 1,000 mg in 05:30: 16:58 Piggyback, [place] NaCl 0.9% 00 :42 Q8H ABX, Medica l (NS) 100 mL First dose Br anch MINI-BAG on Sat12/20/21 at 0030, Until Discontinu ed, Administer over 30 Minutes, 100 mL
Reas on for Anti-Infec tive: Empiric Therapy for Suspected Infection< br>Empiric Therapy Site: Urine
D uration of therapy: 7 days Sliding Yes Subcutaneo [facility] ers Scale 6-08 us, Q4H, ity of Insulin-Reg 05:00: First dose [place] ular + Fsbg 00 on Sat Medica l Testing 12/20/21 at Branch 0000, Until Discontinu ed, Routine NaCl 0.9% 2021- No 1000mL at 125 Uni vers (NS) IV 12-20 06-08 mL/hr, IV ity of infusion 04:30: 16:28 [...] < 70 proCHLORper Yes 10mg 10 mg, [facility] ers azine 12-20 Slow IV ity of (COMPAZINE) 04:10: Push, [place] injection 40 Q6HPRN, Medical 10 mg Starting Branch on Sat12/19/21 at 2310, Until Discontinu ed, Routine, Nausea and Vomiting (N/V) FENTanyl PF 2021- No 50ug 50 mcg, Un ela (SUBLIMAZE 12-20- Slow IV ity o f (PF)) 03:04: [...] ity of human 01:15: 01:51 from 13.74 [place] (HUMULIN R) 00 :00 Units = Medic al injection 0.1 Branch 13.7 Units Units/kg ?137.4 kg), Slow IV Push, ONCE, 1 dose, On Sat12/19/21 at 2030, STAT FENTanyl PF 2021- No 50ug 50 mcg, Un ela (SUBLIMAZE 12-20 06-08 Slow IV ity o f (PF)) 01:00: [...] 31 (twelve) Medica l hours. Branch insulin 0 Yes 15U inject 15 [...] times daily before meals. insulin 0 Yes 52U inject 52 U nivers glargine 6-06 Units ity of 100 unit/mL 00:00: under the [place] injection 00 skin at Medical bedtime. Branch insulin 0 Yes 15U inject 15 U nivers lispro, 6-06 Units ity of human, 100 00:00: under the [place] unit/mL 00 skin 3 Medical injection (three) Branch times daily before meals. insulin 0 Yes 52U inject 52 U [...] times daily before meals. insulin 2021- No 15U inject 15 [facility] lispro, 6-06 07-30 Units ity of human, 100 00:00: 00:00 under the [place] unit/mL 00 :00 skin 3 Medical injection (three) Branch times daily before meals. insulin 2021- No [id number] 15U inject 15 [facility] lispro, 12-18 07-30 Units ity of human, 100 00:00: 00:00 under the [place] unit/mL 00 :00 skin 3 Medical injection (three) Branch times daily before meals. insulin 2021- No [id number] 52U inject 52 [facility] glargine 12-18 06-10 [...] (scale 7-10)
U se approved by (Faculty): [facility] PROVIDER insulin Yes .4U/kg/ 52 Units Uni [...] (scale 7-10)
U se approved by (Faculty): [facility] PROVIDER Sliding Yes Subcutaneo [facility] ers Scale 6-04 us, Q4H, ity of Insulin - 17:00: First dose [place] lispro 00 on [facility] Medical (humaLOG) + 12/16/21 at [facility] Fsbg 1200, Testing Until Discontinu ed, Routine insulin Yes .35U/kg 15 Units Uni vers lispro 6-04 /d (rounded ity of (human) 17:00: from 15.05 [place] (HumaLOG 00 Units = Medical U-100) 0.35 Branch injection Units/kg/d 15 Units ay ?129 kg), Subcutaneo us, TID MEALS, First dose on 12/16/21 at 1200, Until Discontinu ed, Routine proMETHazin Yes 25mg 25 mg, [facility] ers e 12-16 Oral, ity of (PHENERGAN) 15:09: Q6HPRN, [place] tablet 25 59 Starting Medica l mg on [facility] Branch 12/16/21 at 1009, Until Discontinu ed, Routine, Nausea and Vomiting (N/V) HYDROmorpho 2021- No 4mg 4 mg, [facility] ne 12-16 06-05 Oral, ity of (DILAUDID) 14:47: 02:22 Q6HPRN, [place] tablet 4 mg 19 :08 Starting Medi efrain on [facility] Branch 12/16/21 at 0947, Until 12/16/21 at 2122, Routine, Pain (scale 7-10) potassium 2021- No 20meq 20 mEq, IV Univers chloride 20 12-15 Piggyback, i ty of mEq/100 mL 23:45: 03:11 Q2H, 2 [place] (KCL) 20 00 :00 doses, Medical mEq/100 mL First dose [facility] RTU IVPB 20 on Fri mEq 12/15/21 [...] of 1,000 mg in 11:30: 16:04 Piggyback, [place] NaCl 0.9% 00 :40 Q24H ABX, Medic [...] Sat12/15/21 Branc h at 0345, [place] insulin No 8U 8 Units, Unive rs regular 12-15 Slow IV ity of human 08:15: 07:13 Push, [place] (HUMULIN R) 00 :00 ONCE, 1 Medic [...] IV ity of human 07:15: 06:21 Push, [place] (HUMULIN R) 00 :00 ONCE, 1 Medic al injection 8 dose, On Bran ch Units Sat12/15/21 at 0215, STAT iopamidol No [id number] 100mL 100 mL, Univers (ISOVUE 12-15 Intravenou [...] On Medica l (NS) 50 mL Sat12/15/21 [facility] MINI-BAG at 0000, Administer over 30 [...] 00 :00 dose, On Medical NaCl 0.9% [facility] 12/14/21 Bran ch (NS) 50 mL at 2345, IV [place] piggyback NaCl 0.9% No 1000mL at 999 Uni vers (NS) bolus 12-15 0603 mL/hr, ity of infusion 04:30: 06:04 1,000 mL, Tim as 1,000 mL 00 :00 IV Medical Infusion, Branch ONCE, 1 dose, On [facility] 12/14/21 at 2330, STAT FENTanyl PF 2021- No 100ug 100 mcg, Univers (SUBLIMAZE 12-1503 Slow IV ity o f (PF)) 03:30: 03:24 Push, [place] injection 00 :00 ONCE, 1 Medical 100 mcg dose, On [facility] 12/14/21 at 2230, STAT cefTRIAXone Yes 2000mg 2,000 mg, Univers (ROCEPHIN) 5-17 Intramuscu ity of injection 21:00: lar, Q24H, [place] 2,000 mg 00 First dose Medic al on Sat [place] 11/28/21 at 1600, Until Discontinu ed, SAHARA
Re ason for Anti-Infec tive: Documented Infection< br>Documen lester Infection Site: Skin / Soft Tissue
Duration of Therapy: Other (see Comments) hydromorpho Yes 4ug Take 4 mcg Univers ne HCl 5-17 by mouth ity of (HYDROMORPH 17:43: every 12 [place] ONE ORAL) 55 (twelve) Medica l hours. [place] hydromorpho Yes 4ug Take 4 mcg Univers ne HCl 5-17 by mouth ity of (HYDROMORPH 17:43: every 12 [place] ONE ORAL) 55 (twelve) Medica l hours. Branch collagenase Yes [id number] Apply to Univers 250 5-17 affected ity of unit/gram 00:00: area(s) [place] ointment 00 daily. Medical Branch collagenase Yes [id number] Apply to Univers 250 5-17 affected ity of unit/gram 00:00: area(s) [place] ointment 00 daily. Medical Branch collagenase 2022-0 Yes [id number] Apply to Univers 250 5-17 affected ity of unit/gram 00:00: area(s) [place] ointment 00 daily. Medical Branch collagenase 2021-0 Yes [id number] Apply to Univers 250 5-17 affected ity of unit/gram 00:00: area(s) [place] ointment 00 daily. Medical Branch collagenase 2021-0 Yes [id number] Apply to Univers 250 5-17 affected ity of unit/gram 00:00: area(s) [place] ointment 00 daily. Medical Branch collagenase 2021-0 Yes [id number] Apply to Univers 250 5-17 affected ity of unit/gram 00:00: area(s) [place] ointment 00 daily. Medical Branch collagenase 2021-0 Yes [id number] Apply to Univers 250 5-17 affected ity of unit/gram 00:00: area(s) [place] ointment 00 daily. Medical Branch collagenase 2021-0 Yes [id number] Apply to Univers 250 5-17 affected ity of unit/gram 00:00: area(s) [place] ointment 00 daily. Medical Branch collagenase 2021-0 Yes [id number] Apply to Univers 250 5-17 affected ity of unit/gram 00:00: area(s) [place] ointment 00 daily. Medical Branch collagenase 2021-0 Yes [id number] Apply to Univers 250 5-17 affected ity of unit/gram 00:00: area(s) [place] ointment 00 daily. Medical Branch collagenase 2021-0 Yes [id number] Apply to Univers 250 5-17 affected ity of unit/gram 00:00: area(s) [place] ointment 00 daily. Medical Branch collagenase 2021-0 Yes [id number] Apply to Univers 250 5-17 affected ity of unit/gram 00:00: area(s) [place] ointment 00 daily. Medical Branch collagenase 2021-0 Yes [id number] Apply to Univers 250 5-17 affected ity of unit/gram 00:00: area(s) [place] ointment 00 daily. Medical Branch collagenase 2021-0 Yes [id number] Apply to Univers 250 5-17 affected ity of unit/gram 00:00: area(s) [place] ointment 00 daily. Medical Branch collagenase 2021-0 Yes [id number] Apply to Univers 250 5-17 affected ity of unit/gram 00:00: area(s) [place] ointment 00 daily. Medical Branch collagenase 2021-0 Yes [id number] Apply to Univers 250 5-17 affected ity of unit/gram 00:00: area(s) [place] ointment 00 daily. Medical Branch collagenase 2021-0 Yes [id number] Apply to Univers 250 5-17 affected ity of unit/gram 00:00: area(s) [place] ointment 00 daily. Medical Branch collagenase 2021-0 Yes [id number] Apply to Univers 250 5-17 affected ity of unit/gram 00:00: area(s) [place] ointment 00 daily. Medical Branch collagenase 2021-0 Yes [id number] Apply to Univers 250 5-17 affected ity of unit/gram 00:00: area(s) [place] ointment 00 daily. Medical Branch collagenase 2021-0 Yes [id number] Apply to Univers 250 5-17 affected ity of unit/gram 00:00: area(s) [place] ointment 00 daily. Medical Branch collagenase 2021-0 Yes [id number] Apply to Univers 250 5-17 affected ity of unit/gram 00:00: area(s) [place] ointment 00 daily. Medical Branch collagenase 2021-0 Yes [id number] Apply to Univers 250 5-17 affected ity of unit/gram 00:00: area(s) [place] ointment 00 daily. Medical Branch collagenase 2021-0 Yes [id number] Apply to Univers 250 5-17 affected ity of unit/gram 00:00: area(s) [place] ointment 00 daily. Medical Branch collagenase 2021-0 Yes [id number] Apply to Univers 250 5-17 affected ity of unit/gram 00:00: area(s) [place] ointment 00 daily. Medical Branch collagenase 2021-0 Yes [id number] Apply to Univers 250 5-17 affected ity of unit/gram 00:00: area(s) [place] ointment 00 daily. Medical Branch collagenase 2021-0 Yes [id number] Apply to Univers 250 5-17 affected ity of unit/gram 00:00: area(s) [place] ointment 00 daily. Medical Branch collagenase 2021-0 Yes [id number] Apply to Univers 250 5-17 affected ity of unit/gram 00:00: area(s) [place] ointment 00 daily. Medical Branch collagenase Yes [id number] Apply to Univers 250 5-17 affected ity of unit/gram 00:00: area(s) [place] ointment 00 daily. Medical Branch collagenase Yes [id number] Apply to Univers 250 5-17 affected ity of unit/gram 00:00: area(s) [place] ointment 00 daily. Medical Branch collagenase Yes [id number] Apply to Univers 250 5-17 affected ity of unit/gram 00:00: area(s) [place] ointment 00 daily. Medical Branch collagenase Yes [id number] Apply to Univers 250 5-17 affected ity of unit/gram 00:00: area(s) [place] ointment 00 daily. Medical Branch collagenase Yes [id number] Apply to Univers 250 5-17 affected ity of unit/gram 00:00: area(s) [place] ointment 00 daily. Medical Branch collagenase Yes [id number] Apply to Univers 250 5-17 affected ity of unit/gram 00:00: area(s) [place] ointment 00 daily. Medical Branch collagenase Yes [id number] Apply to Univers 250 5-17 affected ity of unit/gram 00:00: area(s) [place] ointment 00 daily. Medical Branch collagenase Yes [id number] Apply to Univers 250 5-17 affected ity of unit/gram 00:00: area(s) [place] ointment 00 daily. Medical Branch docusate 2021- No [id number] 100mg Take 1 U nivers 100 mg 11-28 capsule by ity of capsule 00:00: 04:59 mouth 2 [place] 00 :00 (two) Medical times Branch daily for 30 days. lactobacill 2021- No [id number] .5mg Take 1 Univers us 11-28 tablet by ity of acidophilus 00:00: 04:59 mouth 2 [place] 00 :00 (two) Medical times Branch daily for 30 days. sennosides 2021- No [id number] 8.6mg Take 1 Univers 8.6 mg -17 06-17 tablet by ity of tablet 00:00: 04:59 mouth 2 [place] 00 :00 (two) Medical times [place] daily for 30 days. tamsulosin 2021- No [id number] .4mg Take 1 Univers 0.4 mg 24 5-17 06-17 capsule by ity of hr capsule 00:00: 04:59 mouth [place] 00 :00 daily for Medical 30 days. Branch docusate 2021- No [id number] 100mg Take 1 U nivers 100 mg 5-17 06-17 capsule by ity of capsule 00:00: 04:59 mouth 2 [place] 00 :00 (two) Medical times [place] daily for 30 days. lactobacill 2021- No [id number] .5mg Take 1 Univers us 5-17 06-17 tablet by ity of acidophilus 00:00: 04:59 mouth 2 [place] 00 :00 (two) Medical times [place] daily for 30 days. sennosides 2021- No [id number] 8.6mg Take 1 Univers 8.6 mg 5-17 06-17 tablet by ity of tablet 00:00: 04:59 mouth 2 [place] 00 :00 (two) Medical times [place] daily for 30 days. tamsulosin 2021- No [id number] .4mg Take 1 Univers 0.4 mg 24 5-17 06-17 capsule by ity of hr capsule 00:00: 04:59 mouth [place] 00 :00 daily for Medical 30 days. Branch docusate 2021- No [id number] 100mg Take 1 U nivers 100 mg 5-17 06-17 capsule by ity of capsule 00:00: 04:59 mouth 2 [place] 00 :00 (two) Medical times [place] daily for 30 days. lactobacill 2021- No [id number] .5mg Take 1 Univers us 5-17 06-17 tablet by ity of acidophilus 00:00: 04:59 mouth 2 [place] 00 :00 (two) Medical times [place] daily for 30 days. sennosides 2021- No [id number] 8.6mg Take 1 Univers 8.6 mg 5-17 06-17 tablet by ity of tablet 00:00: 04:59 mouth 2 [place] 00 :00 (two) Medical times [place] daily for 30 days. tamsulosin 2021- No [id number] .4mg Take 1 Univers 0.4 mg 24 5-17 06-17 capsule by ity of hr capsule 00:00: 04:59 mouth [place] 00 :00 daily for Medical 30 days. Branch docusate 2021- No [id number] 100mg Take 1 U nivers 100 mg 5-17 06-17 capsule by ity of capsule 00:00: 04:59 mouth 2 [place] 00 :00 (two) Medical times [place] daily for 30 days. lactobacill 2021- No [id number] .5mg Take 1 Univers us 5-17 06-17 tablet by ity of acidophilus 00:00: 04:59 mouth 2 [place] 00 :00 (two) Medical times [place] daily for 30 days. sennosides 2021- No [id number] 8.6mg Take 1 Univers 8.6 mg 5-17 06-17 tablet by ity of tablet 00:00: 04:59 mouth 2 [place] 00 :00 ([facility] [place]) Medical times [place] daily for 30 days. tamsulosin 2021- No [id number] .4mg Take 1 Univers 0.4 mg 24 5-17 06-17 capsule by ity of hr capsule 00:00: 04:59 mouth [place] 00 :00 daily for Medical 30 days. Branch docusate 2021- No [id number] 100mg Take 1 U nivers 100 mg 5-17 06-17 capsule by ity of capsule 00:00: 04:59 mouth 2 [place] 00 :00 (two) Medical times [place] daily for 30 days. lactobacill 2021- No [id number] .5mg Take 1 Univers us 5-17 06-17 tablet by ity of acidophilus 00:00: 04:59 mouth 2 [place] 00 :00 (two) Medical times [place] daily for 30 days. sennosides 2021- No [id number] 8.6mg Take 1 Univers 8.6 mg 5-17 06-17 tablet by ity of tablet 00:00: 04:59 mouth 2 [place] 00 :00 (two) Medical times [place] daily for 30 days. tamsulosin 2021- No [id number] .4mg Take 1 Univers 0.4 mg 24 11-28 06-17 capsule by ity of hr capsule 00:00: 04:59 mouth [place] 00 :00 daily for Medical 30 days. Branch metroNIDAZO 2021- No [id number] 500mg Take 1 Univers LE 500 mg 5-17 05-21 tablet by ity of tablet 00:00: 04:59 mouth [place] 00 :00 every 12 Medical (twelve) Branch hours for 3 days. metroNIDAZO 2021- No [id number] 500mg Take 1 Univers LE 500 mg [...]
Duration of Therapy: Other (see Comments) cefTRIAXone No 2g 2 g, IV Un ela [...] Yes 30mg 30 mg, Unive rs (LOVENOX) 5-12 Subcutaneo ity of injection 01:00: us, Q12H, [...] (Apply To ity of ointment 22:15: Affected [place] 00 Areas), Medical DAILY, Branch First dose [...] dose Medi efrain 100 mL on Sat [place] MINI-BAG 11/22/21 at 0600, Until Discontinu ed, [...] Sat11/22/21 at 0030, STAT iopamidol 2021- No [id number] 150mL 150 mL, Univers (ISOVUE 11-22 Intravenou ity o f 370-500 mL) 04:45: 03:34 s, ONCE, 1 [place] injection 00 :00 dose, On Medica l 150 mL Sat11/21/21 at 2345, Routine ceFEPIme 2021- No 2000mg [...] ONCE, 1 Medical 75 mcg dose, On [facility] 11/21/21 at 2245, STAT OXYCODONE 2021- No Take by [facility] ers HCL/ACETAMI 11-22 mouth. ity o f NOPHEN 03:22: 00:00 [place] (PERCOCET 50 :00 Medical ORAL) [place] FENTanyl PF 2021- No 100ug 100 mcg, Univers (SUBLIMAZE 11-22 Slow IV ity o f (PF)) 01:30: 01:12 Push, [place] injection 00 :00 ONCE, 1 Medical 100 mcg dose, On [facility] 11/21/21 at 2030, STAT Lovenox No Notes: Memoria [...] Q12H, 0 Her [place] 00 Refill(s) hydromorpho 0 Yes 4 mg = 1 Me moria ne 4 mg 4-13 tab, PO, l oral tablet 16:43: Q12H, 0 Her [place] 00 Refill(s) hydromorpho 0 Yes 4 mg = 1 Me moria ne 4 mg 4-13 tab, PO, l oral tablet 16:43: Q12H, 0 Her [place] 00 Refill(s) Lantus 100 0 No 10 unit, Mem oria units/mL 4-13 SUB-Q, l 16:40: Daily, 0 [place] 00 Refill(s) Lantus 100 0 No 10 unit, Mem oria units/mL 4-13 SUB-Q, l 16:40: Daily, 0 [place] 00 Refill(s) Lantus 100 0 No 10 unit, Mem oria units/mL 4-13 SUB-Q, l 16:40: Daily, 0 [place] 00 Refill(s) Lantus 100 0 No 10 unit, Mem oria units/mL 4-13 SUB-Q, l 16:40: Daily, 0 Refill(s) Lantus 100 2021-0 No 10 unit, Mem oria units/mL 4-12 0.1 mL, l 14:00: Route: SUB-Q, Drug form: SOLN, Daily, Dosing Weight 127.727, kg, Start date: 10/24/21 9:00:00 CDT, Duration: 30 day, Stop date: 11/22/21 9:00:00 CDT, Infuse over: 0 hr, 0 Lantus 100 2021-0 No 10 unit, Mem oria units/mL 4-12 0.1 mL, l 14:00: Route: SUB-Q, Drug form: SOLN, Daily, Dosing Weight 127.727, kg, Start date: 10/24/21 9:00:00 CDT, Duration: 30 day, Stop date: 11/22/21 9:00:00 CDT, Infuse over: 0 hr, 0 Lantus 100 2021-0 No 10 unit, Mem oria units/mL 4-12 0.1 mL, l 14:00: Route: SUB-Q, Drug form: SOLN, Daily, Dosing Weight 127.727, kg, Start date: 10/24/21 9:00:00 CDT, Duration: 30 day, Stop date: 11/22/21 9:00:00 CDT, Infuse over: 0 hr, 0 Lantus 100 2021-0 No 10 unit, Mem oria units/mL 4-12 [...] l water 10 mL 06:00: Maxipime) [place] 00 MEDICATION WASTE Product Size: 1000 mg Product Wasted: _0__ mg cefepime + No Notes: Memor ia sterile 4-12 (Same As: l water 10 mL 06:00: Maxipime) [place] 00 MEDICATION WASTE Product Size: 1000 mg Product Wasted: _0__ mg cefepime + No Notes: Memor ia sterile 4-12 (Same As: l water 10 mL 06:00: Maxipime) [place] 00 MEDICATION WASTE Product Size: 1000 mg Product Wasted: _0__ mg cefepime + No Notes: Memor ia sterile 4-12 (Same As: l water 10 mL 05:00: Maxipime) [place] 00 MEDICATION WASTE Product Size: 1000 mg Product Wasted: _0__ mg insulin No Notes: Memoria lispro 4-12 (Same as: l 05:00: Humalog) [place] 00 Roll in palms of hands gently; Do not shake vigorously . WASTE: F/P - Black; E - Municipal Trash Bin Stable for 28 days at room temperatur e. Expires in days from ____Date cefepime + No Notes: Memor ia sterile 4-12 (Same As: l water 10 mL 05:00: Maxipime) [place] 00 MEDICATION WASTE Product Size: 1000 mg Product Wasted: _0__ mg insulin 2021-0 No Notes: Memoria lispro 4-12 (Same as: l 05:00: Humalog) [place] 00 Roll in palms of hands gently; Do not shake vigorously . WASTE: F/P - Black; E - Municipal Trash Bin Stable for 28 days at room temperatur e. Expires in days from ____Date cefepime + No Notes: Memor ia sterile 4-12 (Same As: l water 10 mL 05:00: Maxipime) [place] 00 MEDICATION WASTE Product Size: 1000 mg Product Wasted: _0__ mg insulin No Notes: Memoria lispro 4-12 (Same as: l 05:00: Humalog) [place] 00 Roll in palms of hands gently; Do not shake vigorously . WASTE: F/P - Black; E - Municipal Trash Bin Stable for 28 days at room temperatur e. Expires in days from ____Date cefepime + No Notes: Memor ia sterile 4-12 (Same As: l water 10 mL 05:00: Maxipime) [place] 00 MEDICATION WASTE Product Size: 1000 mg Product Wasted: _0__ mg insulin No Notes: Memoria lispro 4-12 (Same as: l 05:00: Humalog) [place] 00 Roll in palms of hands gently; Do not shake vigorously . WASTE: F/P - Black; E - Municipal Trash Bin Stable for 28 days at room temperatur e. Expires in days from ____Date Dilaudid No Notes: Memoria 4-11 (Same as: l 16:53: Dilaudid) Dilaudid No Notes: Memoria 4-11 (Same as: l 16:53: Dilaudid) [place] Dilaudid No Notes: Memoria 4-11 (Same as: l 16:53: Dilaudid) [place] Dilaudid No Notes: Memoria 4-11 (Same as: l 16:53: Dilaudid) Lantus 100 No 10 unit, Mem oria units/mL -11 0.1 mL, l 16:24: Route: [place] 00 SUB-Q, Drug form: SOLN, ONCE, Dosing Weight 127.727, kg, Start date: 10/23/21 11:24:00 CDT, Stop date: 10/23/21 11:24:00 CDT, Infuse over: 0 hr, 0 Lantus 100 2021-0 No 10 unit, Mem oria units/mL 4-11 0.1 mL, l 16:24: Route: [place] 00 SUB-Q, Drug form: SOLN, ONCE, Dosing Weight 127.727, kg, Start date: 10/23/21 11:24:00 CDT, Stop date: 10/23/21 11:24:00 CDT, Infuse over: 0 hr, 0 Lantus 100 2021-0 No 10 unit, Mem oria units/mL 4-11 0.1 mL, l 16:24: Route: Jason 00 SUB-Q, Drug form: SOLN, ONCE, Dosing Weight 127.727, kg, Start date: 10/23/21 11:24:00 CDT, Stop date: 10/23/21 11:24:00 CDT, Infuse over: 0 hr, 0 Lantus 100 2021-0 No 10 unit, Mem oria units/mL 4-11 0.1 mL, l 16:24: Route: Jason 00 SUB-Q, Drug form: SOLN, ONCE, Dosing Weight 127.727, kg, Start date: 10/23/21 11:24:00 CDT, Stop date: 10/23/21 11:24:00 CDT, Infuse over: 0 hr, 0 NS (Bolus) 0 No 500 mL, Erwin benjamin IV 4-11 500 ml/hr, l 15:15: Infuse [place] 00 Over: 1 hr, Route: IV, 500, Drug form: INJ, ONCE, Priority: STAT, Dosing Weight 127.727 kg, Start date: 10/23/21 10:15:00 CDT, Stop date: 10/23/21 10:15:00 CDT, 0 NS (Bolus) 0 No 500 mL, Erwin benjamin IV 4-11 500 ml/hr, l 15:15: Infuse [place] 00 Over: 1 hr, Route: IV, 500, [...] 4-11 25 mL, l (D50W) 13:59: Route: IVP, Drug Form: INJ, Dosing Weight 127.727, kg, PRN, PRN Blood Glucose Results, Start date: 10/23/21 8:59:00 CDT, Duration: 30 day, Stop date: 11/22/21 8:58:00 CDT, 0 glucagon 2021-0 No 1 mg, Memoria 4-11 Route: IM, l 13:59: Drug form: PDR/INJ, PRN, Dosing Weight 127.727, kg, PRN [...] . WASTE: F/P - Black; E - [employer] Trash Bin Stable for 28 days at [...] e. Expires in days from ____Date Dextrose No 12.5 gm, Memor ia 50% Syringe 10-23 25 mL, l (D50W) 13:59: Route: IVP, Drug Form: INJ, Dosing Weight 127.727, kg, PRN, PRN Blood Glucose Results, Start date: 10/23/21 8:59:00 CDT, Duration: 30 day, Stop date: 11/22/21 8:58:00 CDT, 0 glucagon No 1 mg, Memoria 10-23 Route: IM, l 13:59: Drug form: PDR/INJ, PRN, Dosing Weight 127.727, kg, PRN Blood Glucose Results, Start date: 10/23/21 8:59:00 CDT, Duration: 30 day, Stop date: 11/22/21 8:58:00 CDT, 0 insulin No Notes: Memoria lispro -11 (Same as: l 13:59: Humalog) Roll in [...] Dilute in l mg/mL 17:00: at least [place] intravenous 00 50ml D5W solution + or [...] Dilute in l mg/mL 17:00: at least [place] intravenous 00 50ml D5W solution + or [...] Notes: Erwin benjamin 4-10 (Same l 16:43: as:Solu-ND [place] 00 DROL, A-Methapre d) MEDICATION WASTE Product Size: 1000 mg Product Wasted: _0__ mg magnesium No Notes: Memori a sulfate 4-10 WASTE: F/P l 16:43: - Sink; E [place] - Municipal Trash Bin Solu-MEDROL No Notes: Erwin benjamin 4-10 (Same l 16:43: as:Solu-ME [place] 00 DROL, A-Methapre d) MEDICATION WASTE Product Size: 1000 mg Product Wasted: _0__ mg magnesium No Notes: Memori a sulfate 4-10 WASTE: F/P l 16:43: - Sink; E [place] 00 - Municipal Trash Bin Solu-MEDROL No Notes: Erwin benjamin 4-10 (Same l 16:43: as:Solu-ME [place] 00 DROL, A-Methapre d) MEDICATION WASTE Product Size: 1000 mg Product Wasted: _0__ mg magnesium No Notes: Memori a sulfate 4-10 WASTE: F/P l 16:43: - Sink; E - Municipal Trash Bin Solu-MEDROL No Notes: Erwin benjamin 4-10 (Same l 16:43: as:Solu-ME [place] 00 DROL, A-Methapre d) MEDICATION WASTE Product Size: 1000 mg Product Wasted: _0__ mg magnesium No Notes: Memori a sulfate 4-10 WASTE: F/P l 16:43: - Sink; E - [facility] Trash Bin amitriptyli No Notes: Erwin benjamin [...] moria e 4-09 Route: l 18:44: IVPB, [place] 00 Q12H, Dosing Weight 127.727, kg, PRN Nausea & Vomiting, Start date: 10/21/21 13:44:00 CDT, Duration: 30 day, Stop date: 11/20/21 13:43:00 CDT promethazin 2022-0 No 6.25 mg, Me moria e - Route: l 18:44: IVPB, Jason 00 Q12H, Dosing Weight 127.727, kg, PRN Nausea & Vomiting, Start date: 10/21/21 13:44:00 CDT, Duration: 30 day, Stop date: 11/20/21 13:43:00 CDT promethazin 2022-0 No 6.25 mg, Me moria e - Route: l 18:44: IVPB, [place] 00 Q12H, Dosing Weight 127.727, kg, PRN Nausea & Vomiting, Start date: 10/21/21 13:44:00 CDT, Duration: 30 day, Stop date: 11/20/21 13:43:00 CDT promethazin 2022-0 No 6.25 mg, Me moria e - Route: l 18:44: IVPB, [place] 00 Q12H, Dosing Weight 127.727, kg, PRN [...] Memoria 4-09 (Same as: l 18:36: Dilaudid) [place] Dilaudid No Notes: Memoria 4-09 (Same as: [...] a 4-09 (Same as: l 18:33: Phenergan) [place] 00 6.25 mg = 1/2 x 12.5 mg TAB Phenergan No Notes: Memori a 4-09 (Same as: l 18:33: Phenergan) [place] 00 6.25 mg = 1/2 x 12.5 mg TAB ascorbic No Notes: Memoria acid - (Same as: l 14:00: Vitamin C) celecoxib No Notes: Memori a 4-09 NSAID. l 14:00: Please [place] 00 check indication . Not for seizure. (Same As: CeleBREX) Lidoderm 5% No Notes: Erwin benjamin topical 10-21 Apply only l film 14:00: once for [place] (patch) 00 up to 12 hours in [...] - (Same as: l 14:00: Vitamin C) celecoxib No Notes: Memori a 4-09 NSAID. l 14:00: Please [place] 00 check indication . Not for seizure. (Same As: CeleBREX) Lidoderm 5% No Notes: Erwin benjamin topical 4-09 Apply only l film 14:00: once for [place] (patch) 00 up to 12 hours in a 24-hour period (12 hours on and 12 hours off). (Same as: Aspercreme Lidocaine Patch) "Remove old patch before applicatio n of new patch" zinc No Notes: Memoria sulfate 4-09 (Zinc l 14:00: sulfate [place] 00 capsule) - 220 mg Zinc sulfate = 50 mg elemental zinc Same as Zinc Sulfate ascorbic No Notes: Memoria acid 4-09 (Same as: l 14:00: Vitamin C) [place] 00 celecoxib No Notes: Memori a 4-09 NSAID. l 14:00: Please [place] 00 check indication . Not for seizure. (Same As: CeleBREX) Lidoderm 5% No Notes: Erwin benjamin topical 4-09 Apply only l film 14:00: once for [place] (patch) 00 up to 12 hours in a 24-hour period (12 hours on and 12 hours off). (Same as: Aspercreme Lidocaine Patch) "Remove old patch before applicatio n of new patch" zinc No Notes: Memoria sulfate 4-09 (Zinc l 14:00: sulfate [place] 00 capsule) - 220 mg Zinc sulfate = 50 mg elemental zinc Same as Zinc Sulfate ascorbic No Notes: Memoria acid 4-09 (Same as: l 14:00: Vitamin C) [place] 00 celecoxib No Notes: Memori a 4-09 NSAID. l 14:00: Please [place] 00 check indication . Not for seizure. (Same As: CeleBREX) Lidoderm 5% No Notes: Erwin benjamin topical 4-09 Apply only l film 14:00: once for [place] (patch) 00 up to 12 hours in a 24-hour period (12 hours on and 12 hours off). (Same as: Aspercreme Lidocaine Patch) "Remove old patch before applicatio n of new patch" zinc No Notes: Memoria sulfate 4-09 (Zinc l 14:00: sulfate [place] 00 capsule) - 220 mg Zinc sulfate = 50 mg elemental zinc Same as Zinc Sulfate cefepime + No Notes: Memor ia sterile - (Same As: l water 10 mL 12:00: Maxipime) MEDICATION WASTE Product Size: 1000 mg Product Wasted: _0__ mg cefepime + No Notes: Memor ia sterile - (Same As: l water 10 mL 12:00: Maxipime) MEDICATION WASTE Product Size: 1000 mg Product Wasted: _0__ mg cefepime + No Notes: Memor ia sterile - (Same As: l water 10 mL 12:00: Maxipime) MEDICATION WASTE Product Size: 1000 mg Product Wasted: _0__ mg cefepime + No Notes: Memor ia sterile - (Same As: l water 10 mL 12:00: Maxipime) MEDICATION WASTE Product Size: 1000 mg Product Wasted: _0__ mg hydromorpho No Notes: Erwin benjamin ne - (Same as: l 09:39: Dilaudid) [place] 00 hydromorpho No Notes: Erwin benjamin ne - (Same as: l 09:39: Dilaudid) [place] 00 hydromorpho No Notes: Erwin benjamin ne - (Same as: l 09:39: Dilaudid) [place] 00 hydromorpho No Notes: Erwin benjamin ne - (Same as: l 09:39: Dilaudid) [place] 00 methocarbam No Notes: Erwin benjamin ol - (Same l 05:00: as:Robaxin [place] ) methocarbam No Notes: Erwin benjamin ol - (Same l 05:00: as:Robaxin [place] ) methocarbam No Notes: Erwin benjamin ol - (Same l 05:00: as:Robaxin [place] 00 ) methocarbam No Notes: Erwin benjamin ol 4-09 (Same l 05:00: as:Robaxin [place] 00 ) docusate No Notes: Memoria 4-09 (Same as: l 02:00: Colace) [place] 00 (Do Not Crush) senna No Notes: Memoria 4-09 (Same as: l 02:00: Senokot) [place] 00 Saline No Notes: Memoria Flush 0.9% 4-09 (Same as: l 02:00: BD [place] 00 Posiflush) topiramate No Notes: Memor ia 4-09 (Same As: l 02:00: Topamax) [place] 00 "Do Not Crush" Hazardous Drug Group 3:Reproduc tive risk Hazardous Drug -- Refer to safe handling procedure PPE Matrix remove No Notes: Memoria patch 4-09 Remove l 02:00: patch 12 [place] 00 hours after applicatio n each day. docusate No Notes: Memoria 4-09 (Same as: l 02:00: Colace) [place] 00 (Do Not Crush) senna No Notes: Memoria 4-09 (Same as: l 02:00: Senokot) [place] 00 Saline No Notes: Memoria Flush 0.9% 4-09 (Same as: l 02:00: BD [place] 00 Posiflush) topiramate No Notes: Memor ia 4-09 (Same As: l 02:00: Topamax) [place] 00 "Do Not Crush" Hazardous Drug Group [...] 0.9% 4-09 (Same as: l 02:00: BD [place] 00 Posiflush) topiramate No Notes: Memor ia 4-09 (Same As: l 02:00: Topamax) [place] 00 "Do Not Crush" Hazardous Drug Group 3:Reproduc tive risk Hazardous Drug -- Refer to safe handling procedure PPE Matrix remove No Notes: Memoria patch 4-09 Remove l 02:00: patch 12 [place] 00 hours after applicatio n each day. docusate No Notes: Memoria 4-09 (Same as: l 02:00: Colace) [place] 00 (Do Not Crush) senna No Notes: Memoria 4-09 (Same as: l 02:00: Senokot) [place] 00 Saline No Notes: Memoria Flush 0.9% 4-09 (Same as: l 02:00: BD [place] 00 Posiflush) topiramate No Notes: Memor ia 4-09 (Same As: l 02:00: Topamax) [place] 00 "Do Not Crush" Hazardous Drug Group 3:Reproduc tive risk Hazardous Drug -- Refer to safe handling procedure PPE Matrix remove No Notes: Memoria patch 4-09 Remove l 02:00: patch 12 [place] 00 hours after applicatio n each day. acetaminoph No Notes: Max Memoria en 4-09 acetaminop l 01:00: hen 4000 [place] 00 mg/day (4 gm/day). (Same as: Tylenol Extra Strength) acetaminoph No Notes: Max Memoria en 4-09 acetaminop l 01:00: hen 4000 [place] 00 mg/day (4 gm/day). (Same as: Tylenol Extra Strength) acetaminoph No Notes: Max Memoria en 4-09 acetaminop l 01:00: hen 4000 [place] 00 mg/day (4 gm/day). (Same as: Tylenol [...] 00 acetaminop oral tablet hen. (Same as: Redig 325/10) oxyCODONE No Notes: Memori a immediate 4-09 (Same as: l release 00:09: Roxicodone Herm carly 00 ) acetaminoph No Notes: Do M emoria en-hydrocod 4-09 not exceed l one 325 00:09: 4gm/day of Herm carly mg-10 mg 00 acetaminop oral tablet hen. (Same as: Redig 325/10) oxyCODONE No Notes: Memori a immediate 4-09 (Same as: l release 00:09: Roxicodone Herm carly 00 ) acetaminoph No Notes: Do M emoria en-hydrocod 4-09 not exceed l one 325 00:09: 4gm/day of Herm carly mg-10 mg 00 acetaminop oral tablet hen. (Same as: Redig 325/10) oxyCODONE No Notes: Memori a immediate 4-09 (Same as: l release 00:09: Roxicodone Herm carly 00 ) acetaminoph No Notes: Do M emoria en-hydrocod 4-09 not exceed l one 325 00:09: 4gm/day of Herm carly mg-10 mg 00 acetaminop oral tablet hen. (Same as: Redig 325/10) LORazepam No Notes: Memori a 4-09 [...] as: l release 00:06: Roxicodone Herm carly ) LORazepam No Notes: Memori a 4-09 (Same as: l 00:06: Ativan) [place] oxyCODONE No Notes: Memori a immediate 4-09 (Same as: l release 00:06: Roxicodone Herm carly ) Sodium No 1,000 mL, Memori a [...] 4-08 (Same as: l one 325 23:43: Redig Jason mg-5 mg 00 325/5) Do oral tablet not exceed 4gm/day of acetaminop hen. acetaminoph No Notes: Do M emoria en-hydrocod 4-08 not exceed l one 325 23:43: 4gm/day of Herm carly mg-10 mg 00 acetaminop oral tablet hen. (Same as: Redig 325/10) bisacodyl No Notes: Memori a 4-08 (Same As: l 23:43: Dulcolax, Jason 00 Bisco-Lax) hydrALAZINE No Notes: Erwin benjamin 4-08 (Same as: l 23:43: Apresoline Jason ) Push over 5 minutes labetalol No 10 mg, 2 Erwin benjamin 4-08 mL, Route: l 23:43: IVP, Drug form: INJ, Q15Min, Dosing Weight 127.727, kg, Start date: 10/20/21 18:43:00 CDT, Duration: 3 doses or times, Stop date: 10/20/21 19:13:00 CDT, 0 Saline No Notes: Memoria Flush 0.9% 4-08 (Same as: l 23:43: BD Posiflush) Sodium No 1,000 mL, Memori a Chloride 08 Rate: 75 l 0.9% IV 23:43: ml/hr, [place] 1,000 mL 00 Infuse over: 13.3 hr, Route: IV, Dosing Weight 127.727 kg, Total Volume: 1,000, Start date: 10/20/21 18:43:00 CDT, Duration: 30 day, Stop date: 11/19/21 18:42:00 CDT, BSA: 2.37 m2, 0 acetaminoph No Notes: Do M emoria en 4-08 not exceed l 23:43: 4 gm/day. [place] 00 (Same as: Tylenol) acetaminoph No Notes: Erwin benjamin en-hydrocod 4-08 (Same as: l one 325 23:43: Redig [place] mg-5 mg 00 325/5) Do oral tablet not exceed 4gm/day of acetaminop hen. acetaminoph No Notes: Do M emoria en-hydrocod 4-08 not exceed l one 325 23:43: 4gm/day of Herm carly mg-10 mg 00 acetaminop oral tablet hen. (Same as: Redig 325/10) bisacodyl No Notes: Memori a 4-08 (Same As: l 23:43: Dulcolax, Jason Bisco-Lax) hydrALAZINE No Notes: Erwin benjamin 4-08 (Same as: l 23:43: Apresoline ) Push over 5 minutes labetalol No 10 mg, 2 Erwin benjamin 4-08 mL, Route: l 23:43: IVP, Drug form: INJ, Q15Min, Dosing Weight 127.727, kg, Start date: 10/20/21 18:43:00 CDT, Duration: 3 doses or times, Stop date: 10/20/21 19:13:00 CDT, 0 Saline No Notes: Memoria Flush 0.9% 08 (Same as: l 23:43: BD Posiflush) Sodium No 1,000 mL, Memori a [...] 4-08 (Same as: l one 325 23:43: Redig [place] mg-5 mg 00 325/5) Do oral tablet not exceed 4gm/day of acetaminop hen. acetaminoph No Notes: Do M emoria en-hydrocod 4-08 not exceed l one 325 23:43: 4gm/day of Herm carly mg-10 mg 00 acetaminop oral tablet hen. (Same as: Redig 325/10) bisacodyl No Notes: Memori a 4-08 (Same As: l 23:43: Dulcolax, Jason Bisco-Lax) hydrALAZINE No Notes: Erwin benjamin 4-08 [...] 0.9% 4-08 (Same as: l 23:43: BD [place] Posiflush) Sodium No 1,000 mL, Memori a Chloride 4-08 Rate: 75 l 0.9% IV 23:43: ml/hr, [place] 1,000 mL 00 Infuse over: 13.3 hr, Route: IV, Dosing Weight 127.727 kg, Total Volume: 1,000, Start date: 10/20/21 18:43:00 CDT, Duration: 30 day, Stop date: 11/19/21 18:42:00 CDT, BSA: 2.37 m2, 0 acetaminoph No Notes: Do M emoria en 4-08 not exceed l 23:43: 4 gm/day. [place] 00 (Same as: Tylenol) acetaminoph No Notes: Erwin benjamin en-hydrocod 4-08 (Same as: l one 325 23:43: Redig [place] mg-5 mg 00 325/5) Do oral tablet not exceed 4gm/day of acetaminop hen. acetaminoph No Notes: Do M emoria en-hydrocod 4-08 not exceed l one 325 23:43: 4gm/day of Herm carly mg-10 mg 00 acetaminop oral tablet hen. (Same as: Redig 325/10) bisacodyl No Notes: Memori a 4-08 (Same As: l 23:43: Dulcolax, [place] Bisco-Lax) hydrALAZINE No Notes: Erwin benjamin 4-08 (Same as: l 23:43: Apresoline ) Push over 5 minutes labetalol No 10 mg, 2 Erwin benjamin 4-08 mL, Route: l 23:43: IVP, Drug form: INJ, Q15Min, Dosing Weight 127.727, kg, Start date: 10/20/21 18:43:00 CDT, Duration: 3 doses or times, Stop date: 10/20/21 19:13:00 CDT, 0 Saline 2021-0 No Notes: Memoria Flush 0.9% 10-20 (Same as: l 23:43: BD [place] 00 Posiflush) NaCl 0.9% 2021- No 1000mL at 999 [...] 1 Medical 25 mg dose, On Branch [facility] 10/16/21 at 0000, STAT haloperidol 2021- No 2.5mg 2.5 mg, U nivers lactate 10-16 Intravenou ity o f (HALDOL) 05:00: 04:47 s, ONCE, [place] 00 :00 dose, On Medica l 2.5 mg [facility] 10/16/21 Branch at 0000, STAT topiramate Yes 25 mg = 1 Me moria 25 mg oral 3-29 cap, PO, l capsule 13:44: Q12H, # 60 Herm carly 00 cap, 0 Refill(s), Pharmacy: [id number], 149.86, cm, 10/06/21 1:18:00 CDT, Height, 127.727, kg, 10/06/21 1:18:00 CDT, Weight topiramate 2021-0 Yes 25 mg = 1 Me moria 25 mg oral 3-29 cap, PO, l capsule 13:44: Q12H, # 60 Herm carly 00 cap, 0 Refill(s), Pharmacy: [id number], 149.86, cm, 10/06/21 1:18:00 CDT, Height, 127.727, kg, 10/06/21 1:18:00 CDT, Weight topiramate 2021-0 Yes 25 mg = 1 Me moria 25 mg oral 3-29 cap, PO, l capsule 13:44: Q12H, # 60 Herm carly 00 cap, 0 Refill(s), Pharmacy: [facility] #[id number], 149.86, cm, 10/06/21 1:18:00 CDT, Height, 127.727, kg, 10/06/21 1:18:00 CDT, Weight topiramate Yes 25 mg = 1 Me moria 25 mg oral 3-29 cap, PO, l capsule 13:44: Q12H, # 60 Herm carly 00 cap, 0 Refill(s), Pharmacy: [facility] #[id number], 149.86, cm, 10/06/21 1:18:00 CDT, Height, 127.727, kg, 10/06/21 1:18:00 CDT, Weight topiramate No Notes: Memor ia 3-28 Hazardous l 22:05: Drug Group 3:Reproduc tive risk Hazardous Drug -- Refer to safe handling procedure PPE Matrix Sprinkle formulatio n. (Same As: Topamax) topiramate No Notes: Memor ia 3-28 Hazardous l 22:05: Drug Group [place] 00 3:Reproduc tive risk Hazardous Drug -- Refer to safe handling procedure PPE Matrix Sprinkle formulatio n. (Same As: Topamax) topiramate No Notes: Memor ia 3-28 Hazardous l 22:05: Drug Group [place] 00 3:Reproduc tive risk Hazardous Drug -- Refer to safe handling procedure PPE Matrix Sprinkle formulatio n. (Same As: Topamax) topiramate No Notes: Memor ia 3-28 Hazardous l 22:05: Drug Group [place] 00 3:Reproduc tive risk Hazardous Drug -- Refer to safe handling procedure PPE Matrix Sprinkle formulatio n. (Same As: Topamax) Prudencio No Notes: Memoria packet 3-28 (Same as: l 21:30: Prudencio [place] 00 Unflavored ) Administer ing PRUDENCIO orally: Mix into 8-10 fl oz of room temperatur e juice, soda, or water. Also mixes well with warm beverages, like coffee or tea. Can be mixed with applesauce . Thoroughly stir for 30-60 seconds or until completely dissolved Prudencio No Notes: Memoria packet - (Same as: l 21:30: Prudencio [place] 00 Unflavored ) Administer ing PRUDENCIO orally: Mix into 8-10 fl oz of room temperatur e juice, soda, or water. Also mixes well with warm beverages, like coffee or tea. Can be mixed with applesauce . Thoroughly stir for 30-60 seconds or until completely dissolved Prudencio No Notes: Memoria packet 3- (Same as: l 21:30: Prudencio [place] 00 Unflavored ) Administer ing PRUDENCIO orally: Mix into 8-10 fl oz of room temperatur e juice, soda, or water. Also mixes well with warm beverages, like coffee or tea. Can be mixed with applesauce . Thoroughly stir for 30-60 seconds or until completely dissolved Prudencio No Notes: Memoria packet - (Same as: l 21:30: Prudencio [place] 00 Unflavored ) Administer ing PRUDENCIO orally: Mix into 8-10 fl oz of room temperatur e juice, soda, or water. Also mixes well with warm beverages, like coffee or tea. Can be mixed with applesauce . Thoroughly stir for 30-60 seconds or until completely dissolved Lovenox No Notes: Memoria 3-27 (Same as: l 16:00: Lovenox) [place] Lovenox No Notes: Memoria 3-27 (Same as: l 16:00: Lovenox) [place] Lovenox No Notes: Memoria 3-27 (Same as: l 16:00: Lovenox) [place] Lovenox No Notes: Memoria 3-27 (Same as: l 16:00: Lovenox) [place] 00 Magnesium No Notes: Memori a Sulfate 10-08 WASTE: F/P l 15:54: - Sink; E [place] 00 - Municipal Trash Bin methylPREDN No Notes: Erwin benjamin ISolone 10-08 (Same l SODium 15:54: as:Solu-ME Kristen nn [...] 3-27 (Same as: l 13:28: Dilaudid) Jason Dilaudid No Notes: Memoria 3-27 (Same as: l 13:28: Dilaudid) [place] Dilaudid No Notes: Memoria 3-27 (Same as: l 13:28: Dilaudid) [place] Dilaudid No Notes: Memoria 3-27 (Same as: l 13:28: Dilaudid) remove No Notes: Memoria patch 3-27 Remove l 02:00: patch 12 [place] 00 hours after applicatio n each day. remove No Notes: Memoria patch 3-27 Remove l 02:00: patch 12 [place] 00 hours after applicatio n each day. remove No Notes: Memoria patch 3-27 Remove l 02:00: patch 12 [place] 00 hours after applicatio n each day. remove No Notes: Memoria patch 3-27 Remove l 02:00: patch 12 [place] 00 hours after applicatio n each day. Lyrica No Notes: Memoria 3-26 (Same as: l 21:58: Lyrica) [place] Naproxen No Notes: Memoria 3-26 (Same as: l 21:58: Naprosyn) [place] Take with food. Lyrica No Notes: Memoria 3-26 (Same as: l 21:58: Lyrica) [place] Naproxen No Notes: Memoria 3-26 (Same as: l 21:58: Naprosyn) [place] Take with food. Lyrica No Notes: Memoria 3-26 (Same as: l 21:58: Lyrica) [place] Naproxen No Notes: Memoria 3-26 (Same as: l 21:58: Naprosyn) [place] Take with food. Lyrica No Notes: Memoria 3-26 (Same as: l 21:58: Lyrica) [place] Naproxen No Notes: Memoria 3-26 (Same as: l 21:58: Naprosyn) [place] 00 Take with food. Ascorbic No Notes: Memoria Acid 3-26 (Same as: l 14:00: Vitamin C) [place] 00 Zinc No Notes: Memoria Sulfate 3-26 (Zinc l 14:00: sulfate [place] capsule) - 220 mg Zinc sulfate = [...] 3-26 (Same as: l 14:00: Vitamin C) [place] Zinc No Notes: Memoria Sulfate 3-26 (Zinc l 14:00: sulfate [place] 00 capsule) - 220 mg Zinc sulfate = 50 mg elemental zinc Same as Zinc Sulfate multivitami No Notes: Erwin benjamin n 3-26 (Same l 14:00: as:Thera) [place] 00 WASTE: [...] Memoria Sulfate 3-26 (Zinc l 14:00: sulfate [place] 00 capsule) - 220 mg Zinc sulfate = 50 mg elemental zinc Same as Zinc Sulfate multivitami No Notes: Erwin benjamin n 3-26 (Same l 14:00: as:Thera) [place] 00 WASTE: [...] 3-26 (Same as: l 14:00: Vitamin C) [place] Zinc No Notes: Memoria Sulfate 3-26 (Zinc [...] of new patch" Celebrex No Notes: Memoria 3- NSAID. l 03:15: Please [place] 00 check indication . Not for seizure. (Same As: CeleBREX) Robaxin No Notes: Memoria 3- (Same l 03:15: as:Robaxin ) gabapentin No Notes: Memor ia - (Same as: l 03:15: Neurontin) Tramadol No Notes: Not Mem oria - to exceed l 03:15: 400mg/day. [place] (Same As: Ultram) Celebrex No Notes: Memoria 3- NSAID. l 03:15: Please [place] 00 check indication . Not for seizure. (Same As: CeleBREX) Robaxin No Notes: Memoria 3-26 (Same l 03:15: as:Robaxin ) gabapentin No Notes: Memor ia - (Same as: l 03:15: Neurontin) Tramadol No Notes: Not Mem oria - to exceed l 03:15: 400mg/day. [place] (Same As: Ultram) Celebrex No Notes: Memoria 3-26 NSAID. l 03:15: Please [place] 00 check indication . Not for seizure. (Same As: CeleBREX) Robaxin No Notes: Memoria 3-26 (Same l 03:15: as:Robaxin [place] 00 ) gabapentin No Notes: Memor ia 3-26 (Same as: l 03:15: Neurontin) [place] 00 Tramadol No Notes: Not Mem oria 3- to exceed l 03:15: 400mg/day. [place] 00 (Same As: Ultram) Celebrex No Notes: Memoria 3- NSAID. l 03:15: Please [place] 00 check indication . Not for seizure. (Same As: CeleBREX) Robaxin No Notes: Memoria 3-26 (Same l 03:15: as:Robaxin [place] 00 ) gabapentin No Notes: Memor ia 3-26 (Same as: l 03:15: Neurontin) [place] 00 Tramadol No Notes: Not Mem oria 3- to exceed l 03:15: 400mg/day. [place] 00 (Same As: Ultram) Dexamethaso No Notes: Memoria ne 3-26 MEDICATION l 03:00: WASTE [place] 00 Product Size: 10 mg Product Wasted: ___ mg Dexamethaso No Notes: Memoria ne 3-26 MEDICATION l 03:00: WASTE [place] 00 Product Size: 10 mg Product Wasted: ___ mg Dexamethaso No Notes: Memoria ne 3-26 MEDICATION l 03:00: WASTE [place] 00 Product Size: 10 mg Product Wasted: ___ mg Dexamethaso 2021-0 No Notes: Memoria ne 3-26 MEDICATION l 03:00: WASTE [place] Product Size: 10 mg Product Wasted: ___ mg Dilaudid No Notes: Memoria 3-26 Same as l 02:58: Dilaudid [place] 00 Dilaudid No Notes: Memoria 3- Same as l 02:58: Dilaudid [place] 00 Dilaudid No Notes: Memoria 3- Same as l 02:58: Dilaudid [place] 00 Dilaudid 2021- No Notes: Memoria 3- Same as l 02:58: Dilaudid [place] 00 Acetaminoph No Notes: Max Memoria en 3-25 acetaminop l 22:38: hen = [place] 00 4000mg/day (4 gm/day). (Same as: Tylenol) Acetaminoph No Notes: Max Memoria en 3-25 acetaminop l 22:38: hen = [place] 00 4000mg/day (4 gm/day). (Same as: Tylenol) Acetaminoph No Notes: Max Memoria en 3-25 acetaminop l 22:38: hen = [place] 00 4000mg/day (4 gm/day). (Same as: Tylenol) Acetaminoph No Notes: Max Memoria en 3-25 acetaminop l 22:38: hen = [place] 00 4000mg/day (4 gm/day). (Same as: Tylenol) Isolyte S No Notes: Memori a PH-7.4 3-25 (Same as: l (Bolus) IV 22:37: Isolyte S [place] 00 PH7.4, Normosol-R PH 7.4, Plasma-Lyt e A ) Magnesium No Notes: Memori a Sulfate 3-25 WASTE: F/P l 22:37: - Sink; E [place] - [facility] Trash Bin Isolyte S No Notes: Memori a PH-7.4 3-25 (Same as: l (Bolus) IV 22:37: Isolyte S [place] 00 PH7.4, Normosol-R PH 7.4, Plasma-Lyt e A ) Magnesium No Notes: Memori a Sulfate 3-25 WASTE: F/P l 22:37: - Sink; E [place] 00 - Municipal Trash Bin Isolyte S No Notes: Memori a PH-7.4 3-25 (Same as: l (Bolus) IV 22:37: Isolyte S [place] 00 PH7.4, Normosol-R PH 7.4, Plasma-Lyt e A ) Magnesium No Notes: Memori a Sulfate 3-25 WASTE: F/P l 22:37: - Sink; E [place] 00 - [facility] Trash Bin Isolyte S 2022-0 No Notes: Memori a PH-7.4 10-06 (Same as: l (Bolus) IV 22:37: Isolyte S [place] 00 PH7.4, Normosol-R PH 7.4, Plasma-Lyt e A ) Magnesium No Notes: Memori a Sulfate 10-06 WASTE: F/P l 22:37: - Sink; E Jason - [facility] Trash Bin Iohexol 0 No 100 mL, Memoria 10-06 Route: l 20:04: IVP, Drug [place] Form: SOLN, Dosing Weight 127.727, kg, ONCALL, STAT, Start date: 10/06/21 15:04:00 CDT, Duration: 1 doses or times, Dose = 2.2ml/kg, Max dose = 100ml -- "To be infused by Radiology Staff ONLY" Iohexol 0 No 100 mL, Memoria 10-06 Route: l 20:04: IVP, Drug [place] Form: SOLN, Dosing Weight 127.727, kg, ONCALL, STAT, Start date: 10/06/21 15:04:00 CDT, Duration: 1 doses or times, Dose = 2.2ml/kg, Max dose = 100ml -- "To be infused by Radiology Staff ONLY" Iohexol 0 No 100 mL, Memoria 10-06 Route: l 20:04: IVP, Drug [place] Form: SOLN, Dosing Weight 127.727, kg, ONCALL, STAT, Start date: 10/06/21 15:04:00 CDT, Duration: 1 doses or times, Dose = 2.2ml/kg, Max dose = 100ml -- "To be infused by Radiology Staff ONLY" Iohexol 0 No 100 mL, Memoria 10-06 Route: l 20:04: IVP, Drug [place] 00 Form: SOLN, Dosing Weight 127.727, kg, ONCALL, STAT, Start date: 10/06/21 15:04:00 CDT, Duration: 1 doses or times, Dose = 2.2ml/kg, Max dose = 100ml -- "To be infused by Radiology Staff ONLY" Docusate No Notes: Memoria 25 (Same as: l 14:00: Colace) [place] (Do Not Crush) sennosides, No Notes: Erwin benjamin CARE HOME 3-25 (Same as: l 14:00: Senokot) [place] Saline No Notes: Memoria Flush 0.9% 3-25 preservati l 14:00: ve free. Jason 00 Docusate No Notes: Memoria 3-25 (Same as: l 14:00: Colace) [place] (Do Not Crush) sennosides, No Notes: Erwin benjamin CARE HOME 3-25 (Same as: l 14:00: Senokot) [place] Saline No Notes: Memoria Flush 0.9% 3-25 preservati l 14:00: ve free. [place] Docusate No Notes: Memoria 3-25 (Same as: l 14:00: Colace) [place] (Do Not Crush) sennosides, No Notes: Erwin benjamin CARE HOME 3-25 (Same as: l 14:00: Senokot) [place] Saline No Notes: Memoria Flush 0.9% 3-25 preservati l 14:00: ve free. [place] Docusate No Notes: Memoria 3-25 (Same as: l 14:00: Colace) [place] (Do Not Crush) sennosides, No Notes: Erwin benjamin CARE HOME 3-25 (Same as: l 14:00: Senokot) [place] Saline No Notes: Memoria Flush 0.9% 3-25 preservati l 14:00: ve free. [place] influenza Yes Notes: Memori a virus 3-25 [...] a 3-25 (Same as: l 06:05: Ativan) [place] Methocarbam No Notes: Erwin benjamin ol 3-25 (Same l 06:05: as:Robaxin [place] ) Lorazepam No Notes: Memori a 3-25 (Same as: l 06:05: Ativan) [place] Methocarbam No Notes: Erwin benjamin ol 3-25 (Same l 06:05: as:Robaxin [place] ) Lorazepam No Notes: Memori a 3-25 (Same as: l 06:05: Ativan) [place] 00 Methocarbam No Notes: Erwin benjamin ol 3-25 (Same l 06:05: as:Robaxin [place] ) Lorazepam No Notes: Memori a 3-25 (Same as: l 06:05: Ativan) [place] Methocarbam No Notes: Erwin benjamin ol 3-25 (Same l 06:05: as:Robaxin Jason 00 ) Sodium No 1,000 mL, Memori a Chloride 3-25 Rate: 50 l 0.9% IV 06:03: ml/hr, [place] 1,000 mL 00 Infuse over: 20 hr, [...] not exceed l Hydrocodone 06:03: 4gm/day of [place] Bitartrate 00 acetaminop 10 MG Oral hen. (Same Tablet as: Redig [Redig 325/10) 10/325] Dilaudid No Notes: Memoria 3-25 Same as l 06:03: Dilaudid Benadryl No Notes: Memoria 3-25 (Same as: l 06:03: Benadryl) phenol No Notes: Memoria 3-25 Chlorasept l 06:03: ic [place] (Same as: Chlorasept ic, Sore Throat Fisher) WASTE: F/P - Black; E - Municipal Trash Bin Bisacodyl No Notes: Memori a 3-25 (Same As: l 06:03: Dulcolax, [place] 00 Bisco-Lax) Robaxin No Notes: Memoria 3-25 (Same l 06:03: as:Robaxin ) Melatonin 3 No Notes: Erwin benjamin MG Extended 3-25 (Same as: l Release 06:03: Melatonin) Herm carly Tablet 00 Tylenol No Notes: Do Memor ia 3-25 not exceed l 06:03: 4 gm/day. [place] 00 (Same as: Tylenol) Reglan No Notes: Memoria 3-25 (Same as: l 06:03: Reglan) Jason Phenergan No Notes: Do Mem oria 3-25 not give l 06:03: IV push. [place] (Same as: Phenergan) Saline No Notes: Memoria Flush 0.9% 3-25 preservati l 06:03: ve free. [place] Sodium No 1,000 mL, Memori a Chloride 25 Rate: 50 l 0.9% IV 06:03: ml/hr, [place] 1,000 mL 00 Infuse over: 20 hr, [...] Memori a 3-25 years, l 06:03: Pediatric [place] 00 Dosing Acetaminoph No Notes: Do M emoria en 325 MG / 3-25 not exceed l Hydrocodone 06:03: 4gm/day of [place] Bitartrate 00 acetaminop 10 MG Oral hen. (Same Tablet as: Redig [Redig 325/10) 10/325] Dilaudid No Notes: Memoria 3-25 Same as l 06:03: Dilaudid Jason 00 Benadryl No Notes: Memoria 3-25 (Same as: l 06:03: Benadryl) Jason phenol No Notes: Memoria 3-25 Chlorasept l 06:03: ic [place] (Same as: Chlorasept ic, Sore Throat [place]) WASTE: F/P - Black; E - Municipal Trash Bin Bisacodyl No Notes: Memori a 3-25 (Same As: l 06:03: Dulcolax, [place] 00 Bisco-Lax) Robaxin No Notes: Memoria 3-25 (Same l 06:03: as:Robaxin ) Melatonin 3 No Notes: Erwin benjamin MG Extended 3-25 (Same as: l Release 06:03: Melatonin) Herm carly Tablet Tylenol No Notes: Do Memor ia 3-25 not exceed l 06:03: 4 gm/day. [place] 00 (Same as: Tylenol) Reglan No Notes: Memoria 3-25 (Same as: l 06:03: Reglan) Jason 00 Phenergan No Notes: Do Mem oria 3-25 not give l 06:03: IV push. Jason (Same as: Phenergan) Saline No Notes: Memoria Flush 0.9% 3-25 preservati l 06:03: ve free. [place] Sodium No 1,000 mL, Memori a Chloride [...] 10 MG Oral hen. (Same Tablet as: Redig [Redig 325/10) 10325] Dilaudid No Notes: Memoria 3-25 Same as l 06:03: Dilaudid Benadryl No Notes: Memoria 3-25 (Same as: l 06:03: Benadryl) [place] phenol No Notes: Memoria 3-25 Chlorasept l 06:03: ic [place] (Same as: Chlorasept ic, Sore Throat [place]) WASTE: F/P - Black; E - Municipal Trash Bin Bisacodyl No Notes: Memori a 3-25 (Same As: l 06:03: Dulcolax, Bisco-Lax) Robaxin No Notes: Memoria 3-25 (Same l 06:03: as:Robaxin ) Melatonin 3 No Notes: Erwin benjamin MG Extended 3-25 (Same as: l Release 06:03: Melatonin) Herm carly Tablet 00 Tylenol No Notes: Do Memor ia 3-25 not exceed l 06:03: 4 gm/day. [place] (Same as: Tylenol) Reglan No Notes: Memoria 3-25 (Same as: l 06:03: Reglan) Phenergan No Notes: Do Mem oria 3-25 not give l 06:03: IV push. 00 (Same as: Phenergan) Saline No Notes: [...] not exceed l Hydrocodone 06:03: 4gm/day of [place] Bitartrate 00 acetaminop 10 MG Oral hen. (Same Tablet as: Redig [Redig 325/10) 10/325] Dilaudid No Notes: Memoria 3-25 Same as l 06:03: Dilaudid Benadryl No Notes: Memoria 3-25 (Same as: l 06:03: Benadryl) phenol No Notes: Memoria 3-25 Chlorasept l 06:03: ic [place] (Same as: Chlorasept ic, Sore Throat [place]) WASTE: F/P - Black; E - Municipal Trash Bin Bisacodyl No Notes: Memori a 3-25 (Same As: l 06:03: Dulcolax, Bisco-Lax) Robaxin No Notes: Memoria 3-25 (Same l 06:03: as:Robaxin ) Melatonin 3 No Notes: Erwin benjamin MG Extended 10-06 (Same as: l Release 06:03: Melatonin) carly Tablet 00 Tylenol No Notes: Do Memor ia 10-06 not exceed l 06:03: 4 gm/day. Jason (Same as: Tylenol) Reglan No Notes: Memoria -25 (Same as: l 06:03: Reglan) Phenergan No Notes: Do Mem oria 10-06 not give l 06:03: IV push. (Same as: Phenergan) Saline No Notes: Memoria Flush 0.9% 10-06 preservati l 06:03: ve free. butalbital- 2021- [...] 2 g, IV Univ ers sulfate in 3-18 03-18 Piggyback, it y of water 2 02:15: [...] by (Faculty): ADC PROVIDER levoFLOXaci 2021- No [id number] 750mg Take 1 Univers n 750 mg 08-09 tablet by ity o f tablet 00:00: 05:59 mouth [place] 00 :00 daily for Medical 4 days. Branch levoFLOXaci 2021- No [id number] 750mg Take 1 Univers n 750 mg 08-09 tablet by ity o f tablet 00:00: 05:59 mouth [place] 00 :00 daily for Medical 4 days. Branch OXYCODONE Yes Take by Unive rs HCL/ACETAMI -25 mouth. ity of NOPHEN 19:49: [place] (PERCOCET 27 Medical ORAL) [place] OXYCODONE Yes Take by Unive rs HCL/ACETAMI 1-25 mouth. ity of NOPHEN 19:49: [place] (PERCOCET 27 Medical ORAL) [place] OXYCODONE Yes Take by Unive rs HCL/ACETAMI -25 mouth. ity of NOPHEN 19:49: [place] (PERCOCET 27 Medical ORAL) [place] OXYCODONE Yes Take by Unive rs HCL/ACETAMI 1-25 mouth. ity of NOPHEN 19:49: [place] (PERCOCET 27 Medical ORAL) [place] vancomycin 2021- No 125mg 125 mg, Un [...] of therapy: 72 hours lactobacill 2021- No [id number] .5mg Take 1 Univers us -08 09-25 tablet by ity of acidophilus 00:00: 05:59 mouth 2 [place] 00 :00 (two) Medical times Branch daily for 30 days. lactobacill 2021- No [id number] .5mg Take 1 Univers us -08 09-25 tablet by ity of acidophilus 00:00: 05:59 mouth 2 [place] 00 :00 (two) Medical times Branch daily for 30 days. vancomycin 2021- No [id number] 125mg Take 1 Univers 125 mg 08-08 capsule by ity of capsule 00:00: 05:59 mouth 4 [place] 00 :00 (four) Medical times Branch daily for 5 days. vancomycin 2021- No [id number] 125mg Take 1 Univers 125 mg 08-08- capsule by ity of capsule 00:00: 05:59 mouth 4 [place] 00 :00 (four) Medical times Branch daily for 5 days. traMADoL Yes 50mg 50 mg, Univers (ULTRAM) 1-24 Oral, ity of tablet 50 21:26: Q6HPRN, [place] mg 10 Starting Medical on Sat Branch 08/07/21 at 1526, Until Discontinu ed, [...] ADC PROVIDER oxyCODONE-a Yes 2{tbl} 2 tablet, [facility] cetaminophe 08-06 Oral, ity of n 20:39: Q6HPRN, [place] (PERCOCET) 03 Starting Medic al 5-325 mg on Sun Branch per tablet 08/06/21 at 2 tablet [...] al (NS) 50 mL First dose [facility] MINI-BAG on 08/05/21 at 0945, Until Discontinu [...] on Fri Medical mg 08/04/21 at Branch 1999, Until Discontinu ed, Routine vancomycin 2021- No 250mg 250 mg, Un ela (VANCOCIN) 08-05 Oral, QID, it y of capsule 250 02:00: 16:20 First dose [place] mg 00 :40 (after Medical last Branch reorder) on 08/04/21 at 2000, Until Discontinu ed, SAHARA
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
Reason for non-formul shanelle use: SPECIFIC INDICATION FOR NONFORMULA RY PRODUCT
Reason for Anti-Infec tive: Documented Infection< br>Documen lestre Infection Site: Abdominal< br>Duratio n of Therapy: [...] Yes 10mg 10 mg, Univ ers azine 08-03 Slow IV ity of (COMPAZINE) 09:07: Push, [place] injection 27 Q6HPRN, Medical 10 mg Starting Branch on Libra 08/03/21 at 0307, Until Discontinu ed, Routine, Nausea and Vomiting (N/V) acetaminoph Yes 650mg 650 mg, Un ela en 08-03 Oral, ity of (TYLENOL) 09:07: Q6HPRN, [place] [...] uration of Therapy: Other (see Comments) cefdinir 2021-2021- No 300mg 300 mg, Univ ers (OMNICEF) 08-01 Oral, ity of capsule 300 03:30: 02:55 ONCE, 1 [place] mg 00 :00 dose, On Medical Mon Branch 07/31/21 at 2130, SAHARA
Re ason for Anti-Infec tive: Documented Infection< br>Documen lester Infection Site: Urine
D uration of Therapy: 7 days FENTanyl PF 2021-2021- No 50ug 50 mcg, [...] 00 :00 dose, On Medical NaCl 0.9% [facility] Branch (NS) 50 mL 07/31/21 at piggyback 1915, 50 mL cefdinir 2021-0 2021- No [id number] 300mg Take 1 U nivers 300 mg 07-31 capsule by ity of capsule 00:00: 05:59 mouth [place] 00 :00 every 12 Medical (twelve) Branch hours for 10 days. cefdinir 2021-0 2022- No [id number] 300mg Take 1 U nivers 300 mg 07-31 capsule by ity of capsule 00:00: 00:00 mouth [place] 00 :00 every 12 Medical (twelve) Branch hours for 10 days. FENTanyl PF 2021-2021- No 50ug 50 mcg, [...] On Branch 07/29/21 at 1645, Routine methocarbam 0 Yes [id number] 1000mg Take 2 Univers oL 500 mg 1-15 tablets by ity of tablet 00:00: mouth 4 (four) Medical times Branch daily as needed for Pain (scale 1-3). methocarbam 2021-0 Yes [id number] 1000mg Take 2 Univers oL 500 mg 1-15 tablets by ity of tablet 00:00: mouth 4 (four) Medical times Branch daily as needed for Pain (scale 1-3). methocarbam 2021-0 Yes [id number] 1000mg Take 2 Univers oL 500 mg 1-15 tablets by ity of tablet 00:00: mouth 4 (four) Medical times Branch daily as needed for Pain (scale 1-3). methocarbam 2022-0 Yes [id number] 1000mg Take 2 Univers oL 500 mg 1-15 tablets by ity of tablet 00:00: mouth 4 00 (four) Medical times Branch daily as needed for Pain (scale 1-3). methocarbam 2021-0 Yes [id number] 1000mg Take 2 Univers oL 500 mg 1-15 tablets by ity of tablet 00:00: mouth 4 00 (four) Medical times Branch daily as needed for Pain (scale 1-3). methocarbam 0 Yes [id number] 1000mg Take 2 Univers oL 500 mg 1-15 tablets by ity of tablet 00:00: mouth 4 00 (four) Medical times Branch daily as needed for Pain (scale 1-3). methocarbam 0 2021- No [id number] 1000mg Take 2 Univers oL 500 mg [...] 06/07/21 at 1615, Routine fidaxomicin 2020-07 Yes [id number] 200mg Take 1 Univers 200 mg 1-24 tablet by ity of tablet 00:00: mouth 2 (two) Medical times Branch daily. proMETHazin 2020-07 Yes [id number] 25mg Take 1 Univers e 25 mg 1-24 tablet by ity of tablet 00:00: mouth [place] 00 every 6 Medical (six) Branch hours as needed for Nausea and Vomiting (N/V). fidaxomicin 2020-07 Yes [id number] 200mg Take 1 Univers 200 mg 1-24 tablet by ity of tablet 00:00: mouth 2 00 (two) Medical times Branch daily. proMETHazin 2020-07 Yes [id number] 25mg Take 1 Univers e 25 mg 1-24 tablet by ity of tablet 00:00: mouth [place] 00 every 6 Medical (six) Branch hours as needed for Nausea and Vomiting (N/V). cholestyram 2020-07 Yes Univer s ine 4 gram 1-24 ity of packet 00:00: [place] 00 Medical Branch fidaxomicin 2020-07 Yes [id number] 200mg Take 1 Univers 200 mg 1-24 tablet by ity of tablet 00:00: mouth 2 00 (two) Medical times Branch daily. proMETHazin 2020-07 Yes [id number] 25mg Take 1 Univers e 25 mg 1-24 tablet by ity of tablet 00:00: mouth [place] 00 every 6 Medical (six) Branch hours as needed for Nausea and Vomiting (N/V). cholestyram 2020-07 Yes Univer s ine 4 gram 1-24 ity of packet 00:00: [place] 00 Medical Branch cholestyram 2020-07 Yes Univer s ine 4 gram 1-24 ity of packet 00:00: [place] 00 Medical Branch cholestyram 2020-07 Yes Univer s ine 4 gram 1-24 ity of packet 00:00: [place] 00 Medical Branch cholestyram 2020-07 Yes Univer s ine 4 gram 1-24 ity of packet 00:00: [place] 00 Medical Branch cholestyram 2020-07 Yes Univer s ine 4 gram 1-24 ity of packet 00:00: [place] 00 Medical Branch fidaxomicin 2020-07 Yes [id number] 200mg Take 1 Univers 200 mg 1-24 tablet by ity of tablet 00:00: mouth 2 [place] 00 (two) Medical times Branch daily. proMETHazin 2020-07 Yes [id number] 25mg Take 1 Univers e 25 mg 1-24 tablet by ity of tablet 00:00: mouth [place] 00 every 6 Medical (six) Branch hours as needed for Nausea and Vomiting (N/V). cholestyram 2020-07- No Unive rs ine 4 gram 1-24 05-11 ity of packet 00:00: 00:00 [place] 00 :00 Medical Branch fidaxomicin 2020-07- No [id number] 200mg Take 1 Univers 200 mg 1-24 01-25 tablet by ity of tablet 00:00: 00:00 mouth 2 [place] 00 :00 (two) Medical times Branch daily. proMETHazin 2020-07- No [id number] 25mg Take 1 Univers e 25 mg [...] cefTRIAXone No 1000mg 1,000 mg, Univers (ROCEPHIN) 5 05-10 IV ity of 1,000 mg in 02:30: 01:55 Piggyback, [place] NaCl 0.9% 00 :00 ONCE, 1 Medical (NS) 50 mL dose, [facility] MINI-BAG 11/20/20 at 2130, 50 mL
Reas on for Anti-Infec tive: Documented Infection< br>Documen lester Infection Site: Urine
D uration of Therapy: 7 days famotidine No 20mg 20 mg, Univ ers (PEPCID 5- 05-10 Slow IV ity of (PF)) 01:00: 00:12 Push, [place] injection 00 :00 ONCE, 1 Medical 20 mg dose, [facility] 11/20/20 at 2000, SAHARA proMETHazin 2020- No 25mg 25 mg, IV Univers e 5- 05-10 Piggyback, ity of (PHENERGAN) 00:45: 00:11 ONCE, 1 [place] 25 mg in 00 :00 dose, [place] [facility] NaCl 0.9% 11/20/20 at [facility] h (NS) 50 mL 1945, 50 piggyback [...] 11/20/20 at 1900, SAHARA cefdinir 2020- No [id number] 300mg Take 1 U nivers 300 mg [...] (two) times daily Use as directed. insulin 2020-0 2021- No 0U Inject [facility] lispro 1-16 01-15 0-12 [facility] (HUMALOG) 00:00: 23:59 subcutaneo M edical 100 unit/mL 00 :00 [facility]ly 3 Center injection (three) times daily before meals. insulin 2020-0 2021- No 25U Inject [address] [facility] lispro 1-16 01-15 Units [facility] (HUMALOG) 00:00: 23:59 subcutanevasiliy [place] edical 100 unit/mL 00 :00 [facility] 3 Center injection (three) times daily before meals. 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, Duration: 30 day, Stop date: 06/21/18 5:03:00 ROLLER DIE 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, 2.4, m2 Magnesium 2017-07 No Notes: Memori a Sulfate 07-22 WASTE: F/P l 10:36: - Sink; E [place] 00 - Municipal Trash Bin Isolyte S 2017-07 No Notes: Memori a PH-7.4 1-08 (Same as: l (Bolus) IV 10:36: Isolyte S [place] 00 PH 7.4) Magnesium 2017-07 No Notes: Memori a Sulfate -08 WASTE: F/P l 10:36: - Sink; E Jason - [place] Trash Bin Isolyte S 2017-07 No Notes: Memori a PH-7.4 -08 (Same as: l (Bolus) IV 10:36: Isolyte S [place] 00 PH 7.4) Magnesium 2017-07 No Notes: Memori a Sulfate -08 WASTE: F/P l 10:36: - Sink; E [place] - [place] Trash Bin Isolyte S 2017-07 No Notes: Memori a PH-7.4 -08 (Same as: l (Bolus) IV 10:36: Isolyte S [place] 00 PH 7.4) Magnesium 2017-07 No Notes: Memori a Sulfate -08 WASTE: F/P l 10:36: - Sink; E [place] - Municipal Trash Bin Isolyte S 2017-07 No Notes: Memori a PH-7.4 -08 (Same as: l (Bolus) IV 10:36: Isolyte S [place] 00 PH 7.4) Phenergan 2017-07 No 12.5 mg, Erwin benjamin 1-08 0.5 mL, l 10:35: Route: [place] 00 IVPB, Drug form: INJ, ONCE, Dosing Weight 131.818, kg, Priority: STAT, Start date: 05/22/18 4:35:00 ROLLER DIE 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, Stop date: 05/22/18 4:35:00 ROLLER DIE 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 Phenergan 2017-07 No 12.5 mg, Erwin benjamin 1-08 0.5 mL, l 10:35: Route: [place] 00 IVPB, Drug form: INJ, ONCE, Dosing Weight 131.818, kg, Priority: STAT, Start date: 05/22/18 4:35:00 ROLLER DIE 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, Stop date: 05/22/18 4:35:00 ROLLER DIE 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 Phenergan 2017- No 12.5 mg, Erwin benjamin 1-08 0.5 mL, l 10:35: Route: [place] 00 IVPB, Drug form: INJ, ONCE, Dosing Weight 131.818, kg, Priority: STAT, Start date: 05/22/18 4:35:00 ROLLER DIE 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, Stop date: 05/22/18 4:35:00 ROLLER DIE 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 Phenergan 2018- No 12.5 mg, Erwin benjamin 1-08 0.5 mL, l 10:35: Route: [place] 00 IVPB, Drug form: INJ, ONCE, Dosing Weight 131.818, kg, Priority: STAT, Start date: 05/22/18 4:35:00 ROLLER DIE 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, Stop date: 05/22/18 4:35:00 ROLLER DIE 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 Wellbutrin Wellbutrin 2017-07 No 1{table BID Wellbutrin SR 150 MG SR 150 MG 0-04 t_in_th SR 150 MG 00:00: e_morni 00 ng} Wellbutrin Wellbutrin 2017-07 No 1{table BID Wellbutrin SR 150 MG SR 150 MG 0-04 t_in_th SR 150 MG 00:00: e_morni 00 ng} Wellbutrin Wellbutrin 2017- No 1{table BID SR 150 MG SR [...] MG 00:00: e_morni 00 ng} Citalopram Citalopram 2017- Yes Na Gamble 1 tablet [facility] Hydrobromid Hydrobromid 7-16 S pirit e e 00:00: - [facility] 00 [facility] Seroquel Seroquel 2017- Yes Na Gamble 1 tablet Common 7-16 Spirit 00:00: - [facility] 00 [facility] Docusate Yes 100 mg = 1 Mem oria Sodium 100 5-08 cap, PO, l MG Oral 14:56: BID, 0 [place] Capsule 00 Refill(s) Zosyn Yes 0 Memoria 5-08 Refill(s) l 14:56: [place] 00 celecoxib Yes 200 mg = 1 [...] PO, l MG Oral 14:56: BID, 0 [place] Capsule 00 Refill(s) Zosyn Yes 0 Memoria 5-08 Refill(s) l 14:56: [place] 00 celecoxib Yes 200 mg = 1 Me moria 200 mg oral 5-08 cap, PO, l capsule 14:56: BID, 0 [place] 00 Refill(s) ascorbic Yes 500 mg = 1 Mem oria acid 5-08 tab, PO, l 14:56: BID, 0 [place] 00 Refill(s) acetaminoph Yes 1,000 mg = [...] n 5-08 Daily, 0 l 14:56: Refill(s) [place] 00 methocarbam Yes 1,000 mg = Memoria [...] PO, l MG Oral 14:56: BID, 0 [place] Capsule 00 Refill(s) Zosyn Yes 0 Memoria 5-08 Refill(s) l 14:56: [place] 00 celecoxib Yes 200 mg = 1 [...] tab, PO, l tablet 14:56: Q8H, PRN [place] 00 Anxiety, 0 Refill(s) Lidocaine Yes 3 patch, Erwin benjamin Hydrochlori 5-08 TOP, l de 0.05 14:56: Daily, [place] MG/MG 00 Remove Transdermal after 12 Patch hours, 0 [Lidoderm] Refill(s) Docusate Yes 100 mg = 1 Mem oria Sodium 100 5-08 cap, PO, l MG Oral 14:56: BID, 0 [place] Capsule 00 Refill(s) Zosyn Yes 0 Memoria 5-08 Refill(s) l 14:56: [place] 00 celecoxib Yes 200 mg = 1 Me moria 200 mg oral 5-08 cap, PO, l capsule 14:56: BID, 0 [place] 00 Refill(s) ascorbic Yes 500 mg = 1 Mem oria acid 5-08 tab, PO, l 14:56: BID, 0 [place] 00 Refill(s) acetaminoph Yes 1,000 mg = [...] n 5-08 Daily, 0 l 14:56: Refill(s) [place] methocarbam Yes 1,000 mg = Memoria ol 500 mg 5-08 2 tab, PO, l oral tablet 14:56: Q8H, 0 Herm carly 00 Refill(s) LORazepam Yes 0.5 mg = 1 Me moria 0.5 mg oral 5-08 tab, PO, l tablet 14:56: Q8H, PRN [place] 00 Anxiety, 0 Refill(s) Lidocaine Yes 3 patch, Erwin benjamin Hydrochlori 5-08 TOP, l de 0.05 14:56: Daily, [place] MG/MG 00 Remove Transdermal after 12 Patch hours, 0 [Lidoderm] Refill(s) Robaxin No Notes: Memoria 5-06 (Same l 21:00: as:Robaxin [place] ) Robaxin No Notes: Memoria 5-06 (Same l 21:00: as:Robaxin [place] ) Robaxin No Notes: Memoria 5-06 (Same l 21:00: as:Robaxin [place] ) Robaxin No Notes: Memoria 5-06 (Same l 21:00: as:Robaxin [place] ) Oxycodone No Notes: Memori a Hydrochlori 5-06 (Same as: l de 5 MG 18:06: Roxicodone Herm carly Oral Tablet 00 ) Oxycodone No Notes: Memori a Hydrochlori 5-06 (Same as: l de 5 MG 18:06: Roxicodone Herm craly Oral Tablet 00 ) Oxycodone No Notes: Memori a Hydrochlori 5-06 (Same as: l de 5 MG 18:06: Roxicodone Herm carly Oral Tablet 00 ) Oxycodone No Notes: Memori a Hydrochlori 5-06 (Same as: l de 5 MG 18:06: Roxicodone Herm carly Oral Tablet 00 ) Ativan No Notes: Memoria 5-06 (Same as: l 15:18: Ativan) [place] Ativan No Notes: Memoria 5-06 (Same as: l 15:18: Ativan) [place] Ativan No Notes: Memoria 5-06 (Same as: l 15:18: Ativan) [place] Ativan No Notes: Memoria 5-06 (Same as: l 15:18: Ativan) [place] Trazodone No Notes: Memori a Hydrochlori 5-06 (Same As: l de 50 MG 02:00: Desyrel) Kristen nn Oral Tablet 00 remove No Notes: Memoria patch 5-06 Remove l 02:00: patch 12 [place] 00 hours after applicatio n each day. Trazodone No Notes: Memori a Hydrochlori 5-06 (Same As: l de 50 MG 02:00: Desyrel) Kristen nn Oral Tablet remove No Notes: Memoria patch 5-06 Remove l 02:00: patch 12 Jason 00 hours after applicatio n each day. Trazodone No Notes: Memori a Hydrochlori 5-06 (Same As: l de 50 MG 02:00: Desyrel) Kristen nn Oral Tablet remove No Notes: Memoria patch 5-06 Remove l 02:00: patch 12 [place] 00 hours after applicatio n each day. Trazodone No Notes: Memori a Hydrochlori 5-06 (Same As: l de 50 MG 02:00: Desyrel) Kristen nn Oral Tablet 00 remove No Notes: Memoria patch 5-06 Remove l 02:00: patch 12 [place] 00 hours after applicatio n each day. [...] Notes: Memoria 5-05 NSAID. l 22:00: Please [place] 00 check indication . Not for seizure. (Same As: CeleBREX) Celebrex No Notes: Memoria 5-05 NSAID. l 22:00: Please [place] 00 check indication . Not for seizure. (Same As: CeleBREX) Celebrex No Notes: Memoria 5-05 NSAID. l 22:00: Please [place] 00 check indication . Not for seizure. (Same As: CeleBREX) Celebrex No Notes: Memoria 5-05 NSAID. l 22:00: Please [place] 00 check indication . Not for seizure. (Same As: CeleBREX) Vancomycin 2017-0 No 2001 mg: Me moria 5-05 infuse l 21:00: over 2.5 [place] 00 hours Vancomycin 2018-0 No 2001 mg: Me moria 5-05 infuse l 21:00: over 2.5 [place] 00 hours Vancomycin 2018-0 No 2001 mg: Me moria 5-05 infuse l 21:00: over 2.5 [place] 00 hours Vancomycin 2017-0 No 2001 mg: Me moria 5-05 infuse [...] Memoria 5-04 Same as l 22:40: Dilaudid [place] 00 Phenergan No Notes: Do Mem oria 5-04 not give l 22:40: IV push. [place] 00 (Same as: Phenergan) Dilaudid No Notes: Memoria 5-04 Same as l 22:40: Dilaudid [place] 00 Phenergan No Notes: Do Mem oria 5-04 not give l 22:40: IV push. [place] 00 (Same as: Phenergan) Dilaudid No Notes: Memoria 5-04 Same as l 22:40: Dilaudid [place] 00 Phenergan No Notes: Do Mem oria 5-04 not give l 22:40: IV push. [place] 00 (Same as: Phenergan) Dilaudid No Notes: Memoria 5-04 Same as l 22:40: Dilaudid [place] 00 Tramadol No Notes: Not Mem oria 5-04 to exceed l 22:00: 400mg/day. [place] 00 (Same As: Ultram) gabapentin No Notes: Memor ia 5-04 (Same as: l 22:00: Neurontin) [place] Acetaminoph No Notes: Max Memoria en 5-04 acetaminop l 22:00: hen 4000 [place] 00 mg/day (4 gm/day). (Same as: Tylenol Extra Strength) Robaxin No Notes: Memoria 5-04 (Same l 22:00: as:Robaxin [place] 00 ) Tramadol No Notes: Not Mem oria 5-04 to exceed l 22:00: 400mg/day. [place] 00 (Same As: Ultram) gabapentin No Notes: Memor ia 5-04 (Same as: l 22:00: Neurontin) [place] 00 Acetaminoph No Notes: Max Memoria en 5-04 acetaminop l 22:00: hen 4000 [place] 00 mg/day (4 gm/day). (Same as: Tylenol Extra Strength) Robaxin No Notes: Memoria 5-04 (Same l 22:00: as:Robaxin [place] 00 ) Tramadol No Notes: Not Mem oria 5-04 to exceed l 22:00: 400mg/day. [place] 00 (Same As: Ultram) gabapentin No Notes: Memor ia 5-04 (Same as: l 22:00: Neurontin) [place] 00 Acetaminoph No Notes: Max Memoria en 5-04 acetaminop l 22:00: hen 4000 [place] 00 mg/day (4 gm/day). (Same as: Tylenol Extra Strength) Robaxin No Notes: Memoria 5-04 (Same l 22:00: as:Robaxin [place] 00 ) Tramadol No Notes: Not Mem oria 5-04 to exceed l 22:00: 400mg/day. [place] 00 (Same As: Ultram) gabapentin No Notes: Memor ia 5-04 (Same as: l 22:00: Neurontin) [place] Acetaminoph No Notes: Max Memoria en 5-04 acetaminop l 22:00: hen 4000 [place] 00 mg/day (4 gm/day). (Same as: Tylenol [...] 10 MG Oral Tablet [Percocet 10/325] Acetaminoph 2018-0 No 1 tab, PO, Memoria en 325 MG / 5-04 TID, 0 l Oxycodone 17:12: Refill(s) Her manzo Hydrochlori 00 de 10 MG Oral Tablet [Percocet 10/325] Acetaminoph 2018-0 No 1 tab, PO, Memoria en 325 MG / 5-04 TID, 0 l Oxycodone 17:12: Refill(s) Her jovany Hydrochlori 00 de 10 MG Oral Tablet [Percocet 10/325] Dilaudid 2018-0 No 0.5 mg, Memori a 5-04 0.25 mL, l 16:01: Route: [place] 00 IVP, Drug form: INJ, ONCE, Start date: 11/15/17 11:01:00 CDT, Stop date: 11/15/17 11:01:00 CDT Dilaudid 2018-0 No 0.5 mg, Memori a 5-04 0.25 mL, l 16:01: Route: [place] IVP, Drug form: INJ, ONCE, Start date: 11/15/17 11:01:00 CDT, Stop date: 11/15/17 11:01:00 CDT Dilaudid 2018-0 No 0.5 mg, Memori a 5-04 0.25 mL, l 16:01: Route: [place] IVP, Drug form: INJ, ONCE, Start date: 11/15/17 11:01:00 CDT, Stop date: 11/15/17 11:01:00 CDT Dilaudid 2018-0 No 0.5 mg, Memori a 5-04 0.25 mL, l 16:01: Route: [place] IVP, Drug form: INJ, ONCE, Start date: 11/15/17 11:01:00 CDT, Stop date: 11/15/17 11:01:00 CDT Phenergan 2018-0 No Notes: Memori a 5-04 (Same as: l 15:43: Phenergan) [place] 00 Dilaudid 2018-0 No 2 mg, Memoria 5-04 Route: l 15:43: IVP, ONCE, [place] 00 Dosing Weight 127.027, kg, Priority: STAT, Start date: 11/15/17 10:43:00 CDT, Stop date: 11/15/17 10:43:00 CDT Phenergan 0 No Notes: Memori a 5-04 (Same as: [...] Memoria 5-04 (Same as: l 14:00: Colace) [place] (Do Not Crush) Zinc No Notes: Memoria Sulfate 5-04 (Zinc l 14:00: sulfate [place] 00 capsule) - 220 mg Zinc sulfate = 50 mg elemental zinc Same as Zinc Sulfate ascorbic No Notes: Memoria acid 5-04 (Same as: l 14:00: Vitamin C) [place] multivitami No Notes: Erwin benjamin n 5-04 (Same l 14:00: as:Thera) [place] 00 WASTE: F/P - Black; E - Municipal Trash Bin Take with food. Docusate No Notes: Memoria 5-04 (Same as: l 14:00: Colace) [place] (Do Not Crush) Zinc No Notes: [facility]oria Sulfate 5-04 (Zinc l 14:00: sulfate [place] 00 capsule) - 220 mg Zinc sulfate = 50 mg elemental zinc Same as Zinc Sulfate ascorbic No Notes: Memoria acid 5-04 (Same as: l 14:00: Vitamin C) [place] multivitami No Notes: Erwin benjamin n 5-04 (Same l 14:00: as:Thera) [place] 00 WASTE: F/P - Black; E - Municipal Trash Bin Take with food. Docusate No Notes: Memoria 5-04 (Same as: l 14:00: Colace) [place] (Do Not Crush) Zinc No Notes: Memoria Sulfate 5-04 (Zinc l 14:00: sulfate [place] 00 capsule) - 220 mg Zinc sulfate = 50 mg elemental zinc Same as Zinc Sulfate ascorbic No Notes: Memoria acid 5-04 (Same as: l 14:00: Vitamin C) [place] multivitami No Notes: Erwin benjamin n 5-04 (Same l 14:00: as:Thera) [place] 00 WASTE: F/P - Black; E - Municipal Trash Bin Take with food. Naproxen No Notes: Memoria 5-04 (Same as: l 07:00: Naprosyn) [place] 00 Take with food. Zosyn 2018-0 No Notes: Memoria 5-04 (Same as: l 07:00: Zosyn) [place] 00 Dosing based on Piperacill in component MEDICATION WASTE Product Size: 3375 mg Product Wasted: ___ mg Vancomycin 2018-0 No 2001 mg: Me moria 5-04 infuse l 07:00: over 2.5 [place] 00 hours For adult patients only: Round to nearest 250 mg per Medical Staff approval MEDICATION WASTE Product Size: 1000 mg Product Wasted: ___ mg Enoxaparin 2018-0 No Notes: Memor ia 5-04 (Same as: l 07:00: Lovenox) [place] 00 Naproxen 2017-0 No Notes: Memoria 5-04 (Same as: l 07:00: Naprosyn) [place] 00 Take with food. Zosyn 2017-0 No Notes: Memoria 5-04 (Same as: l 07:00: Zosyn) [place] 00 Dosing based on Piperacill in component MEDICATION WASTE Product Size: 3375 mg Product Wasted: ___ mg Vancomycin 2018-0 No 2001 mg: Me moria 5-04 infuse l 07:00: over 2.5 [place] 00 hours For adult patients only: Round to nearest 250 mg per Medical Staff approval MEDICATION WASTE Product Size: 1000 mg Product Wasted: ___ mg Enoxaparin 2018-0 No Notes: Memor ia 5-04 (Same as: l 07:00: Lovenox) [place] 00 Naproxen 2018-0 No Notes: Memoria 5-04 (Same as: l 07:00: Naprosyn) [place] 00 Take with food. Zosyn 2018-0 No Notes: Memoria 5-04 (Same as: l 07:00: Zosyn) [place] 00 Dosing based on Piperacill in component MEDICATION WASTE Product Size: 3375 mg Product Wasted: ___ mg Vancomycin 2018-0 No 2001 mg: Me moria 5-04 infuse l 07:00: over 2.5 [place] 00 hours For adult patients only: Round to nearest 250 mg per Medical Staff approval MEDICATION WASTE Product Size: 1000 mg Product Wasted: ___ mg Enoxaparin No Notes: Memor ia 5-04 (Same as: l 07:00: Lovenox) Naproxen No Notes: Memoria 5-04 (Same as: [...] ia 5-04 (Same as: l 07:00: Lovenox) Sodium No 1,000 mL, Memori a Chloride 11-15 Rate: 125 l 0.9% IV 06:46: ml/hr, [place] 1,000 mL 00 Infuse over: 8 hr, Route: IV, Dosing Weight 127.27 kg, Total Volume: 1,000, Start date: 11/15/17 1:46:00 CDT, Duration: 30 day, Stop date: 12/15/17 1:45:00 CDT, 2.44, m2 Saline No Notes: Memoria Flush 0.9% - (Same as: l 06:46: BD [place] 00 Posiflush) Acetaminoph No Notes: Do M emoria en -04 not exceed l 06:46: 4 gm/day. [place] (Same as: Tylenol) Acetaminoph No Notes: Erwin benjamin en 325 MG / 5-04 (Same as: l Hydrocodone 06:46: Redig Kristen nn Bitartrate 00 325/5) Do 5 MG Oral not exceed Tablet 4gm/day of acetaminop hen. Sodium No 1,000 mL, Memori a Chloride 5-04 Rate: 125 l 0.9% IV 06:46: ml/hr, [place] 1,000 mL 00 Infuse over: 8 hr, Route: IV, Dosing Weight 127.27 kg, Total Volume: 1,000, Start date: 11/15/17 1:46:00 CDT, Duration: 30 day, Stop date: 12/15/17 1:45:00 CDT, 2.44, m2 Saline No Notes: Memoria Flush 0.9% 5-04 (Same as: l 06:46: BD [place] 00 Posiflush) Acetaminoph No Notes: Do M emoria en 5-04 not exceed l 06:46: 4 gm/day. [place] 00 (Same as: Tylenol) Acetaminoph No Notes: Erwin benjamin en 325 MG / 5-04 (Same as: l Hydrocodone 06:46: Redig Kristen nn Bitartrate 00 325/5) Do 5 [...] 5-04 not exceed l 06:46: 4 gm/day. [place] 00 (Same as: Tylenol) Acetaminoph No Notes: Erwin benjamin en 325 MG / 5-04 (Same as: l Hydrocodone 06:46: Redig Kristen nn Bitartrate 00 325/5) Do 5 [...] / - (Same as: l Hydrocodone 06:46: Redig Kristen nn Bitartrate 00 325/5) Do 5 MG Oral not exceed Tablet 4gm/day of acetaminop hen. Reglan No Notes: Memoria 5-04 (Same as: l 04:27: Reglan) [place] Benadryl No Notes: Memoria 5-04 (Same as: l 04:27: Benadryl) [place] Reglan No Notes: Memoria 5-04 (Same as: l 04:27: Reglan) [place] Benadryl No Notes: Memoria 5-04 (Same as: l 04:27: Benadryl) [place] Reglan No Notes: Memoria 5-04 (Same as: l 04:27: Reglan) [place] Benadryl No Notes: Memoria 5-04 (Same as: l 04:27: Benadryl) [place] Reglan No Notes: Memoria 5-04 (Same as: l 04:27: Reglan) [place] Benadryl No Notes: Memoria 5-04 (Same as: l 04:27: Benadryl) [place] Magnesium No Notes: Memori a Sulfate - WASTE: F/P l 04:26: - Sink; E [place] 00 - Municipal Trash Bin Sodium No 1,000 mL, Memori a Chloride 5-04 1000 l 0.9% 04:26: ml/hr, [place] (Bolus) IV 00 Infuse Over: 1 hr, Route: IV, 1,000, Drug form: INJ, ONCE, Priority: STAT, Dosing Weight 127.273 kg, Start date: 11/14/17 23:26:00 CDT, Stop date: 11/14/17 23:26:00 CDT Magnesium 2018-0 No Notes: Memori a Sulfate 5-04 WASTE: F/P l 04:26: - Sink; E [place] - Municipal Trash Bin Sodium 20180 No 1,000 mL, Memori a Chloride 5-04 1000 l 0.9% 04:26: ml/hr, [place] (Bolus) IV 00 Infuse Over: 1 hr, Route: IV, 1,000, Drug form: INJ, ONCE, Priority: STAT, Dosing Weight 127.273 kg, Start date: 11/14/17 23:26:00 CDT, Stop date: 11/14/17 23:26:00 CDT Magnesium 2018-0 No Notes: Memori a Sulfate 5-04 WASTE: F/P l 04:26: - Sink; E [place] - Municipal Trash Bin Sodium 20180 No 1,000 mL, Memori a Chloride 5-04 1000 l 0.9% 04:26: ml/hr, [place] (Bolus) IV 00 Infuse Over: 1 hr, Route: IV, 1,000, Drug form: INJ, ONCE, Priority: STAT, Dosing Weight 127.273 kg, Start date: 11/14/17 23:26:00 CDT, Stop date: 11/14/17 23:26:00 CDT Magnesium 2018-0 No Notes: Memori a Sulfate 5-04 WASTE: F/P l 04:26: - Sink; E [place] - Municipal Trash Bin Sodium 20180 No 1,000 mL, Memori a Chloride 5-04 [...] gm, Memoria 5-04 Route: l 04:10: IVPB, [place] 00 ONCE, Dosing Weight 127.273, kg, Priority: [...] gm, Memoria 5-04 Route: l 04:10: IVPB, [place] 00 ONCE, Dosing Weight 127.273, kg, Priority: [...] gm, Memoria 5-04 Route: l 04:10: IVPB, [place] 00 ONCE, Dosing Weight 127.273, kg, Priority: STAT, Start date: 11/14/17 23:10:00 CDT, Stop date: 11/14/17 23:10:00 CDT, ABX Indication : Bacteremia Vancomycin 2018-0 No 2000 mg: Me moria 5-04 infuse l 04:10: over 2.5 [place] 00 hours For adult patients only: Round [...] en 5-04 acetaminop l 02:56: hen 4000 [place] 00 mg/day (4 gm/day). (Same as: Tylenol Extra Strength) Acetaminoph No Notes: Max Memoria en 5-04 acetaminop l 02:56: hen 4000 [place] 00 mg/day (4 gm/day). (Same as: Tylenol Extra Strength) Rocephin No Notes: Memoria - (Same As: l 02:21: Rocephin). [place] 00 MEDICATION WASTE Product Size: 1000 mg Product Wasted: _0__ mg Rocephin 2017-0 No Notes: Memoria 5- (Same As: l 02:21: Rocephin). [place] 00 MEDICATION WASTE Product Size: 1000 mg Product Wasted: _0__ mg Rocephin 2017-0 No Notes: Memoria - (Same As: l 02:21: Rocephin). [place] 00 MEDICATION WASTE Product Size: 1000 mg Product Wasted: _0__ mg Rocephin 2017-0 No Notes: Memoria 5-04 (Same As: l 02:21: Rocephin). [place] 00 MEDICATION WASTE Product Size: 1000 mg Product Wasted: _0__ mg Morphine 2017-0 No 4 mg, Memoria 11-15 Route: l [...] CDT, Stop date: 11/14/17 17:56:00 CDT Benadryl 0 No Notes: Memoria 5-03 (Same as: l 22:56: Benadryl) Morphine 2018-0 No 4 mg, 1 Memori a 5-03 mL, Route: l 22:56: IVP, Drug [place] 00 form: SOLN, ONCE, Dosing Weight 127.273, kg, Priority: STAT, Start date: 11/14/17 17:56:00 CDT, Stop date: 11/14/17 17:56:00 CDT Benadryl 2018-0 No Notes: Memoria 5-03 (Same as: l 22:56: Benadryl) [place] 00 Morphine 2018-0 No 4 mg, 1 Memori a 5-03 mL, Route: l 22:56: IVP, Drug [place] 00 form: SOLN, ONCE, Dosing Weight 127.273, kg, Priority: STAT, Start date: 11/14/17 17:56:00 CDT, Stop date: 11/14/17 17:56:00 CDT Benadryl 2018-0 No Notes: Memoria 5-03 (Same as: l 22:56: Benadryl) [place] 00 Morphine 2017-0 No 4 mg, 1 Memori a 5-03 mL, Route: l 22:56: IVP, Drug [place] 00 form: SOLN, ONCE, Dosing Weight 127.273, kg, Priority: STAT, Start date: 11/14/17 17:56:00 CDT, Stop date: 11/14/17 17:56:00 CDT OXYCODONE 2016- Yes Take by Unive rs HCL/ACETAMI 2-20 mouth. ity of NOPHEN 10:03: [place] (PERCOCET 17 Medical ORAL) [place] OXYCODONE 2016-07 Yes Take by Unive rs HCL/ACETAMI 2-20 mouth. ity of NOPHEN 04:03: [place] (PERCOCET 17 Medical ORAL) [place] OXYCODONE 2016- Yes Take by Unive rs HCL/ACETAMI 2-20 mouth. ity of NOPHEN 04:03: [place] (PERCOCET 17 Medical ORAL) Branch OXYCODONE 2016- Yes Take by Unive rs HCL/ACETAMI 2-20 mouth. ity of NOPHEN 04:03: [place] (PERCOCET 17 Medical ORAL) [place] OXYCODONE 2016-07 Yes Take by Unive rs HCL/ACETAMI 2-20 mouth. ity of NOPHEN 04:03: [place] (PERCOCET 17 Medical ORAL) Branch dicyclomine 2016- Yes 20mg Take 1 Univ ers (BENTYL) 20 2-20 tablet by ity of mg tablet 00:00: mouth 00 (four) Medical times Branch daily. proMETHazin [...] by ity of mg tablet 00:00: mouth 00 (four) Medical times Branch daily. proMETHazin 2016-07 Yes 25mg Take 1 Univ ers e 25 mg 2-20 tablet by ity of tablet 00:00: mouth [place] 00 every 6 Medical (six) Branch hours as needed for Nausea and Vomiting (N/V). dicyclomine 2016-07 Yes 20mg Take 1 Univ ers (BENTYL) 20 2-20 tablet by ity of mg tablet 00:00: mouth 00 (four) Medical times Branch daily. proMETHazin [...] needed for Nausea and Vomiting (N/V). dicyclomine 2016-2021- No 20mg Take 1 Uni vers (BENTYL) [...] Take 1 Uni vers e 25 mg 07-18 tablet by ity of tablet 00:00: 00:00 mouth [place] 00 :00 every 6 Medical (six) Branch hours as needed for Nausea and Vomiting (N/V) for up to 12 doses. SEROquel 25 SEROquel 25 No 1{table SEROquel MG MG t} 25 MG SEROquel 25 SEROquel 25 No 1{table [...] Codeine #4 Codeine #4 - C HI [facility] Macrobid Macrobid Yes Na Gamble 1 capsule Common with food [facility] - [facility] Pantoprazol Pantoprazol Yes Na Gamble 1 tablet Common e Sodium e Sodium Spirit [facility] Collagenase Collagenase Yes Na Gambel 1 Common applicatio Spirit n to - [facility] affected [facility] Pantoprazol Pantoprazol No 1{table QD Pantoprazo [...] MG 100 MG le_with 100 MG _food} Immunizations Ordered Filled Immunization Date Status Comments Sourc e Immunization Name Name SARS-COV-2 COVID-19 2021-01-01 Completed Unive rsity of MODERNA, 6MO-5YRS, 00:00:00 [place] [facility] 0.25ML VACCINE Branch SARS-COV-2 COVID-19 2021-01-01 Completed Unive rsity of MODERNA, 6MO-5YRS, 00:00:00 [place] [facility] 0.25ML VACCINE Branch SARS-COV-2 COVID-19 2021-01-01 Completed Unive rsity of MODERNA, 6MO-5YRS, 00:00:00 [place] [facility] 0.25ML VACCINE Branch SARS-COV-2 COVID-19 2021-01-01 Completed Unive rsity of MODERNA, 6MO-5YRS, 00:00:00 [place] [facility] 0.25ML VACCINE Branch SARS-COV-2 COVID-19 2021-01-01 Completed Unive rsity of MODERNA, 6MO-5YRS, 00:00:00 [place] [facility] 0.25ML VACCINE Branch SARS-COV-2 COVID-19 2021-01-01 Completed Unive rsity of MODERNA, 6MO-5YRS, 00:00:00 [place] [facility] 0.25ML VACCINE Branch SARS-COV-2 COVID-19 2021-01-01 Completed Unive rsity of MODERNA, 6MO-5YRS, 00:00:00 [place] [facility] 0.25ML VACCINE Branch SARS-COV-2 COVID-19 2021-01-01 Completed Unive rsity of MODERNA, 6MO-5YRS, 00:00:00 [place] [facility] 0.25ML VACCINE Branch SARS-COV-2 COVID-19 2021-01-01 Completed Unive rsity of MODERNA, 6MO-5YRS, 00:00:00 [place] [facility] 0.25ML VACCINE Branch SARS-COV-2 COVID-19 2021-01-01 Completed Unive rsity of MODERNA, 6MO-5YRS, 00:00:00 [place] [facility] 0.25ML VACCINE Branch SARS-COV-2 COVID-19 2020-02-01 Completed Unive rsity of MODERNA 12+ YRS 00:00:00 [place] [facility] ical VACCINE Branch SARS-COV-2 COVID-19 2020-02-01 Completed Unive rsity of MODERNA 12+ YRS 00:00:00 [place] [facility] ical VACCINE Branch SARS-COV-2 COVID-19 2020-02-01 Completed Unive rsity of MODERNA 12+ YRS 00:00:00 [place] [facility] ical VACCINE Branch SARS-COV-2 COVID-19 2020-02-01 Completed Unive rsity of MODERNA 12+ YRS 00:00:00 [place] [facility] ical VACCINE Branch SARS-COV-2 COVID-19 2020-02-01 Completed Unive rsity of MODERNA 12+ YRS 00:00:00 [place] [facility] ical VACCINE Branch SARS-COV-2 COVID-19 2020-02-01 Completed Unive rsity of MODERNA 12+ YRS 00:00:00 [place] [facility] ical VACCINE Branch SARS-COV-2 COVID-19 2020-02-01 Completed Unive rsity of MODERNA 12+ YRS 00:00:00 [place] [facility] ical VACCINE Branch SARS-COV-2 COVID-19 2020-02-01 Completed Unive rsity of MODERNA 12+ YRS 00:00:00 [place] [facility] ical VACCINE Branch SARS-COV-2 COVID-19 2020-02-01 Completed Unive rsity of MODERNA 12+ YRS 00:00:00 [place] [facility] ical VACCINE Branch SARS-COV-2 COVID-19 2020-02-01 [...] YRS 00:00:00 [place] [facility] ical VACCINE Branch Vital Signs Vital Name Observation Time Observation Value Comments Source Systolic blood 2022-07-05 18:59:00 125 mm[Hg] [facility] of pressure [place] [facility] Diastolic blood 2022-07-05 18:59:00 84 mm[Hg] Unive rsity of pressure [place] [facility] Heart rate 2022-07-05 18:59:00 104 /min [facility] [place] [facility] Respiratory rate 2022-07-05 18:59:00 18 /min [facility] [place] [facility] Body weight 2022-07-05 18:59:00 127.007 kg [facility] [place] [facility] BMI 2022-07-05 18:59:00 56.55 kg/m2 [facility] [place] [facility] Oxygen saturation in 2022-07-05 18:59:00 98 /min [facility] of Arterial blood by [place] [employer] [facility] Pulse oximetry Branch Systolic blood 2022-06-25 19:02:00 142 mm[Hg] Univer sity of pressure [place] [facility] Diastolic blood 2022-06-25 19:02:00 99 mm[Hg] Unive rsity of pressure [place] [facility] Heart rate 2022-06-25 19:01:00 91 /min [facility] [place] [facility] Systolic blood 2022-05-21 18:00:00 136 mm[Hg] Univer sity of pressure [place] [facility] Diastolic blood 2022-05-21 18:00:00 92 mm[Hg] Unive rsity of pressure [place] [facility] Heart rate 2022-05-21 18:00:00 99 /min [facility] [place] [facility] Body temperature 2022-05-21 18:00:00 35.83 Abi [facility] [place] [facility] Respiratory rate 2022-05-21 18:00:00 18 /min [facility] [place] [facility] Oxygen saturation in 2022-05-21 18:00:00 95 /min [facility] Arterial blood by [place] [employer] [facility] Pulse oximetry Branch Body weight 2022-05-21 10:45:00 135.988 kg [facility] [place] [facility] BMI 2022-05-21 10:45:00 60.55 kg/m2 [facility] [place] [facility] Body height 2022-05-21 02:02:00 149.9 cm [facility] [place] [facility] Systolic blood 2022-05-15 01:11:00 166 mm[Hg] Univer sity of pressure [place] [facility] Diastolic blood 2022-05-15 01:11:00 93 mm[Hg] [facility]ive rsity of pressure [place] [facility] Heart rate 2022-05-15 01:09:00 106 /min [facility] [place] [facility] Body temperature 2022-05-15 01:09:00 36.89 Abi [facility] [place] [facility] Respiratory rate 2022-05-15 01:09:00 20 /min [facility] [place] [facility] Body weight 2022-05-15 01:09:00 127.007 kg [facility] [place] [facility] BMI 2022-05-15 01:09:00 56.55 kg/m2 [facility] [place] [facility] Oxygen saturation in 2022-05-15 01:09:00 96 /min [facility] of Arterial blood by [facility] Pulse oximetry Branch Systolic blood 2022-05-13 03:00:00 138 mm[Hg] Univer sity of pressure [place] [facility] Diastolic blood 2022-05-13 03:00:00 82 mm[Hg] Unive rsity of pressure [place] [facility] Heart rate 2022-05-13 03:00:00 102 /min [facility] [place] [facility] Respiratory rate 2022-05-13 03:00:00 20 /min [facility] [place] [facility] Oxygen saturation in 2022-05-13 03:00:00 97 /min [facility] of Arterial blood by [facility] Pulse oximetry Branch Body temperature 2022-05-13 00:13:00 36.5 Abi [facility] [place] [facility] Body weight 2022-05-13 00:13:00 132.904 kg [facility] [place] [facility] BMI 2022-05-13 00:13:00 59.18 kg/m2 [facility] [place] [facility] Systolic blood 2022-05-06 12:42:00 128 mm[Hg] Univer sity of pressure [place] [facility] Diastolic blood 2022-05-06 12:42:00 83 mm[Hg] Unive rsity of pressure [place] [facility] Heart rate 2022-05-06 12:42:00 111 /min [facility] [place] [facility] Body temperature 2022-05-06 12:42:00 35.94 Abi [facility] [place] [facility] Respiratory rate 2022-05-06 12:42:00 18 /min [facility] [place] [facility] Oxygen saturation in 2022-05-06 12:42:00 95 /min [facility] Arterial blood by [place] [facility] Pulse oximetry Branch Body weight 2022-05-06 10:22:00 132.995 kg [facility] [place] [facility] BMI 2022-05-06 10:22:00 59.22 kg/m2 [facility] [place] [facility] Body height 2022-05-04 11:00:00 149.9 cm [facility] [place] [facility] Systolic blood 2022-02-23 17:14:00 130 mm[Hg] Univer sity of pressure [place] [facility] Diastolic blood 2022-02-23 17:14:00 83 mm[Hg] Unive rsity of pressure [place] [facility] Heart rate 2022-02-23 17:14:00 100 /min [facility] [place] [facility] Body temperature 2022-02-23 17:14:00 36.72 Abi [facility] [place] [facility] Respiratory rate 2022-02-23 17:14:00 20 /min [facility] [place] [facility] Oxygen saturation in 2022-02-23 17:14:00 96 /min [facility] Arterial blood by [facility] efrain Pulse oximetry Branch Body height 2022-02-15 10:00:00 149.9 cm [facility] [place] [facility] Body weight 2022-02-15 10:00:00 123 kg [facility] [place] [facility] BMI 2022-02-15 10:00:00 54.77 kg/m2 [facility] [place] [facility] Systolic blood 2022-02-20 12:40:00 107 mm[Hg] Univer sity of pressure [place] [facility] Diastolic blood 2022-02-20 12:40:00 64 mm[Hg] Unive rsity of pressure [place] [facility] Heart rate 2022-02-20 12:40:00 99 /min [facility] [place] [facility] Body temperature 2022-02-20 12:40:00 36.83 Abi [facility] [place] [facility] Respiratory rate 2022-02-20 12:40:00 18 /min [facility] [place] [facility] Oxygen saturation in 2022-02-20 12:40:00 95 /min [facility] Arterial blood by [place] [facility] Pulse oximetry Branch Body height 2022-02-15 10:00:00 149.9 cm [facility] [place] [facility] Body weight 2022-02-15 10:00:00 123 kg [facility] [place] [facility] BMI 2022-02-15 10:00:00 54.77 kg/m2 [facility] [place] [facility] Heart rate 2022-02-10 23:00:00 91 /min [facility] [place] [facility] Oxygen saturation in 2022-02-10 23:00:00 95 /min [facility] Arterial blood by [facility] efrain Pulse oximetry Branch Systolic blood 2022-02-10 22:02:00 134 mm[Hg] Univer sity of pressure [place] [facility] Diastolic blood 2022-02-10 22:02:00 83 mm[Hg] Unive rsity of pressure [place] [facility] Body temperature 2022-02-10 21:00:00 36.83 Abi [facility] [place] [facility] Respiratory rate 2022-02-10 21:00:00 28 /min [facility] [place] [facility] Body weight 2022-02-10 09:00:00 134.99 kg [facility] [place] [facility] BMI 2022-02-10 09:00:00 60.08 kg/m2 [facility] [place] [facility] Body height 2022-02-07 22:22:00 149.9 cm [facility] [place] [facility] Systolic blood 2022-01-27 03:38:00 126 mm[Hg] [facility] Diastolic blood 2022-01-27 03:38:00 90 mm[Hg] [facility] Heart rate 2022-01-27 03:38:00 97 /min [facility] Respiratory rate 2022-01-27 03:38:00 18 /min [facility] Oxygen saturation in 2022-01-27 03:38:00 97 /min [facility] Arterial blood by [facility] Body temperature 2022-01-26 22:09:00 36.94 Abi [facility] Body height 2022-01-26 22:09:00 149.9 cm [facility] [place] [facility] Body weight 2022-01-26 22:09:00 127.007 kg [facility] BMI 2022-01-26 22:09:00 56.55 kg/m2 [facility] Systolic blood 2022-01-17 11:00:00 143 mm[Hg] [facility] Diastolic blood 2022-01-17 11:00:00 91 mm[Hg] [facility] Heart rate 2022-01-17 11:00:00 100 /min [facility] Respiratory rate 2022-01-17 11:00:00 16 /min [facility] Oxygen saturation in 2022-01-17 11:00:00 96 /min [facility] Arterial blood by [facility] Pulse oximetry Branch Body temperature 2022-01-17 09:55:00 36.89 Abi [facility] Body height 2022-01-17 09:55:00 149.9 cm [facility] Body weight 2022-01-17 09:55:00 127.007 kg [facility] [place] BMI 2022-01-17 09:55:00 56.55 kg/m2 [facility] Systolic blood 2022-01-13 00:43:00 132 mm[Hg] [facility] Diastolic blood 2022-01-13 00:43:00 88 mm[Hg] [facility] Heart rate 2022-01-13 00:43:00 107 /min [facility] Body temperature 2022-01-13 00:43:00 36.33 Abi [facility] Respiratory rate 2022-01-13 00:43:00 18 /min [facility] Oxygen saturation in 2022-01-13 00:43:00 95 /min [facility] Arterial blood by [facility] Pulse oximetry Branch Body height 2022-01-10 11:31:00 149.9 cm [facility] Body weight 2022-01-10 11:31:00 127.007 kg [facility] BMI 2022-01-10 11:31:00 56.55 kg/m2 [facility] [place] Body temperature 2022-01-06 16:10:00 36.22 Abi [facility] Respiratory rate 2022-01-06 16:10:00 16 /min [facility] Oxygen saturation in 2022-01-06 16:10:00 96 /min [facility]terial blood by [facility]rain Pulse oximetry Branch Systolic blood 2022-01-06 16:10:00 127 mm[Hg] [facility] Diastolic blood 2022-01-06 16:10:00 84 mm[Hg] [facility] Heart rate 2022-01-06 16:10:00 98 /min [facility] [place] Body weight 2022-01-06 08:54:00 133.494 kg [facility] BMI 2022-01-06 08:54:00 50.52 kg/m2 [facility] Body height 2022-01-05 03:01:00 162.6 cm [facility] Systolic blood 2021-12-22 17:03:00 132 mm[Hg] [facility] Diastolic blood 2021-12-22 17:03:00 90 mm[Hg] [facility] [place] [facility] [place] Heart rate 2021-12-22 17:03:00 78 /min [facility] Body temperature 2021-12-22 17:03:00 35.83 Abi [facility] Respiratory rate 2021-12-22 17:03:00 14 /min [facility] Oxygen saturation in 2021-12-22 17:03:00 93 /min [facility] Arterial blood by [facility] Pulse oximetry Branch Body weight 2021-12-22 09:00:00 140.933 kg [facility] BMI 2021-12-22 09:00:00 62.75 kg/m2 [facility] Body height 2021-12-21 12:47:00 149.9 cm [facility] Systolic blood 2021-12-18 20:40:00 125 mm[Hg] [facility] Diastolic blood 2021-12-18 20:40:00 75 mm[Hg] [facility] Heart rate 2021-12-18 20:40:00 99 /min [facility] Body temperature 2021-12-18 20:40:00 36.67 Abi [facility] Respiratory rate 2021-12-18 20:40:00 20 /min [facility] Oxygen saturation in 2021-12-18 20:40:00 93 /min [facility]terial blood by [facility] Pulse oximetry Branch Body weight 2021-12-16 22:13:00 137.485 kg [facility] BMI 2021-12-16 22:13:00 61.22 kg/m2 [facility] Body height 2021-12-15 09:10:00 149.9 cm [facility] Systolic blood 2021-11-28 15:49:00 111 mm[Hg] [facility] Diastolic blood 2021-11-28 15:49:00 76 mm[Hg] [facility] Heart rate 2021-11-28 15:49:00 109 /min [facility] Body temperature 2021-11-28 15:49:00 36.06 Abi [facility] Respiratory rate 2021-11-28 15:49:00 18 /min [facility] Oxygen saturation in 2021-11-28 15:49:00 92 /min [facility] blood by [facility] Pulse oximetry Branch Body weight 2021-11-27 10:47:00 139.481 kg [facility] BMI 2021-11-27 10:47:00 62.11 kg/m2 [facility] Body height 2021-11-22 06:57:00 149.9 cm [facility] Systolic blood 2021-10-16 06:00:00 144 mm[Hg] [facility] Diastolic blood 2021-10-16 06:00:00 93 mm[Hg] [facility] Heart rate 2021-10-16 06:00:00 92 /min [facility] Respiratory rate 2021-10-16 06:00:00 22 /min [facility] Oxygen saturation in 2021-10-16 04:00:00 94 /min [facility] blood by [facility] Pulse oximetry Branch Body temperature 2021-10-16 03:45:00 37.06 Abi [facility] Body height 2021-10-16 03:45:00 149.9 cm [facility] Body weight 2021-10-16 03:45:00 127.461 kg [facility] BMI 2021-10-16 03:45:00 56.76 kg/m2 [facility] Systolic blood 2021-09-29 03:18:00 113 mm[Hg] [facility] Diastolic blood 2021-09-29 03:18:00 85 mm[Hg] [facility] Heart rate 2021-09-29 03:18:00 96 /min [facility] Respiratory rate 2021-09-29 03:18:00 18 /min [facility] Oxygen saturation in 2021-09-29 03:18:00 93 /min [facility] [place] [employer] [facility] Pulse oximetry Branch Body temperature 2021-09-29 01:01:16 36.89 Abi [facility] Body weight 2021-09-28 23:13:00 127.461 kg [facility] BMI 2021-09-28 23:13:00 56.76 kg/m2 [facility] Systolic blood 2021-08-08 21:53:00 142 mm[Hg] [facility] Diastolic blood 2021-08-08 21:53:00 88 mm[Hg] [facility] Heart rate 2021-08-08 21:53:00 96 /min [facility] Body temperature 2021-08-08 21:53:00 36.06 Abi [facility] Respiratory rate 2021-08-08 21:53:00 18 /min [facility] Oxygen saturation in 2021-08-08 21:53:00 96 /min [facility] Arterial blood by [employer] [facility] Pulse oximetry Branch Body weight 2021-08-08 09:48:00 138.801 kg [facility] BMI 2021-08-08 09:48:00 61.80 kg/m2 [facility] Body height 2021-08-03 10:27:00 149.9 cm [facility] Systolic blood 2021-08-01 03:50:00 142 mm[Hg] [facility] Diastolic blood 2021-08-01 03:50:00 95 mm[Hg] [facility] Heart rate 2021-08-01 03:50:00 93 /min [facility] Respiratory rate 2021-08-01 03:50:00 17 /min [facility] of [facility] Oxygen saturation in 2021-08-01 03:50:00 98 /min [facility] Arterial blood by [facility] Pulse oximetry Branch Body temperature 2021-07-31 20:39:00 36.5 Abi [facility] Body weight 2021-07-31 20:39:00 136.079 kg [facility] BMI 2021-07-31 20:39:00 60.59 kg/m2 [facility] Systolic blood 2021-07-30 01:46:00 134 mm[Hg] [facility] pressure [facility] Diastolic blood 2021-07-30 01:46:00 100 mm[Hg] [facility] [place] [facility] [place] Heart rate 2021-07-30 01:46:00 102 /min [facility] [place] Respiratory rate 2021-07-30 01:46:00 22 /min [facility] Oxygen saturation in 2021-07-30 01:46:00 96 /min [facility]ial blood by [facility] Pulse oximetry Branch Body temperature 2021-07-29 20:52:00 36.67 Abi [facility] Body weight 2021-07-29 20:52:00 136.079 kg [facility] BMI 2021-07-29 20:52:00 60.59 kg/m2 [facility] height 2021-07-04 11:20:00 59 [in_i] [facility] weight 2021-07-04 11:20:00 350 [lb_av] [facility] temperature 2021-07-04 11:20:00 97.8 [degF] [facility] bmi 2021-07-04 11:20:00 70.68 kg/m2 [facility] oximetry 2021-07-04 11:20:00 94 % [facility] blood pressure 2021-07-04 11:20:00 160 mm[Hg] [facility] blood pressure 2021-07-04 11:20:00 80 mm[Hg] [facility] Systolic blood 2021-06-07 23:30:00 175 mm[Hg] [facility]ity of [facility] Diastolic blood 2021-06-07 23:30:00 107 mm[facility]Hg] [facility] Heart rate 2021-06-07 23:30:00 81 /min [facility] Respiratory rate 2021-06-07 23:30:00 21 /min [facility] Oxygen saturation in 2021-06-07 23:30:00 97 /min [facility] Arterial blood by [facility] Pulse oximetry Branch Body weight 2021-06-07 21:55:00 136.079 kg [facility] BMI 2021-06-07 21:55:00 60.59 kg/m2 [facility] Body temperature 2021-06-07 21:55:00 37.44 Abi [facility] 2021-04-11 13:00:00 59 [in_i] Common [facility] weight 2021-04-11 13:00:00 350 [lb_av] [facility] temperature 2021-04-11 13:00:00 96.8 [degF] [facility] bmi 2021-04-11 13:00:00 70.68 kg/m2 [facility] oximetry 2021-04-11 13:00:00 96 % [facility] blood pressure 2021-04-11 13:00:00 120 mm[Hg] [facility] blood pressure 2021-04-11 13:00:00 77 mm[Hg] [facility] height 2021-01-31 14:20:00 59 [in_i] [facility] weight 2021-01-31 14:20:00 350 [lb_av] [facility] temperature 2021-01-31 14:20:00 95 [degF] [facility] bmi 2021-01-31 14:20:00 70.68 kg/m2 [facility] oximetry 2021-01-31 14:20:00 98 % [facility] blood pressure 2021-01-31 14:20:00 128 mm[Hg] [facility] blood pressure 2021-01-31 14:20:00 82 mm[Hg] [facility] height 2021-01-03 13:40:00 59 [in_i] [facility] weight 2021-01-03 13:40:00 350 [lb_av] [facility] temperature 2021-01-03 13:40:00 97.4 [degF] [facility] bmi 2021-01-03 13:40:00 70.68 kg/m2 [facility] oximetry 2021-01-03 13:40:00 91 % [facility] blood pressure 2021-01-03 13:40:00 132 mm[Hg] [facility] blood pressure 2021-01-03 13:40:00 87 mm[Hg] [facility] Systolic blood 2020-11-21 01:30:00 163 mm[Hg] [facility] Diastolic blood 2020-11-21 01:30:00 106 mm[Hg] [facility]ive rsity of [facility] Heart rate 2020-11-21 01:30:00 97 /min [facility] Respiratory rate 2020-11-21 01:30:00 21 /min [facility] Oxygen saturation in 2020-11-21 01:30:00 97 /min [facility]ial blood by [facility] Pulse oximetry Branch Body temperature 2020-11-20 23:27:00 36.83 Abi [facility] Body height 2020-11-20 23:27:00 149.9 cm [facility] Body weight 2020-11-20 23:27:00 136.079 kg [facility] BMI 2020-11-20 23:27:00 60.59 kg/m2 [facility] Systolic blood 2020-11-21 01:30:00 163 mm[Hg] [facility] Diastolic blood 2020-11-21 01:30:00 106 mm[Hg] [facility] Heart rate 2020-11-21 01:30:00 97 /min [facility] Respiratory rate 2020-11-21 01:30:00 21 /min [facility] Oxygen saturation in 2020-11-21 01:30:00 97 /min [facility] blood by [facility] Pulse oximetry Branch Body temperature 2020-11-20 23:27:00 36.83 Abi [facility] Body height 2020-11-20 23:27:00 149.9 cm [facility] Body weight 2020-11-20 23:27:00 136.079 kg [facility] BMI 2020-11-20 23:27:00 60.59 kg/m2 [facility] Systolic blood 2022-02-19 16:49:00 127 mm[Hg] [facility] Diastolic blood 2022-02-19 16:49:00 86 mm[Hg] [facility] Heart rate 2022-02-19 16:49:00 101 /min [facility] Body temperature 2022-02-19 16:49:00 36.83 Abi [facility] Respiratory rate 2022-02-19 16:49:00 20 /min [facility] Oxygen saturation in 2022-02-19 16:49:00 95 /min [facility] by [facility] Pulse oximetry [place] Body height 2022-02-15 10:00:00 149.9 cm [facility] Body weight 2022-02-15 10:00:00 123 kg [facility] BMI 2022-02-15 10:00:00 54.77 kg/m2 [facility] Temperature Oral (F) 2021-10-25 21:12:00 98.0 F [facility] Heart Rate 2021-10-25 21:12:00 [facility] Rate 2021-10-25 21:12:00 [facility] [place] Systolic (mm Hg) 2021-10-25 21:12:00 [facility] [place] Diastolic (mm Hg) 2021-10-25 21:12:00 [facility] Heart Rate 2021-10-25 17:09:26 [facility] Respitory Rate 2021-10-25 17:09:26 [facility] Temperature Oral (F) 2021-10-25 17:09:08 98.2 F [facility] Systolic (mm Hg) 2021-10-25 17:08:50 [facility] [place] Diastolic (mm Hg) 2021-10-25 17:08:50 [facility] Heart Rate 2021-10-25 17:08:50 [facility] Respitory Rate 2021-10-25 13:07:22 [facility] Temperature Oral (F) 2021-10-25 13:07:04 97.7 F [facility] Systolic (mm Hg) 2021-10-25 13:06:57 [facility] [place] Diastolic (mm Hg) 2021-10-25 13:06:57 [facility] Heart Rate 2021-10-23 10:00:21 [facility] Respitory Rate 2021-10-23 10:00:21 [facility] [place] Temperature Oral (F) 2021-10-23 09:59:28 97.5 F [facility] Systolic (mm Hg) 2021-10-23 09:58:18 [facility] [place] Diastolic (mm Hg) 2021-10-23 09:58:18 [facility] [place] Heart Rate 2021-10-23 09:58:18 [facility] Heart Rate 2021-10-23 04:58:41 [facility] Respitory Rate 2021-10-23 04:58:41 [facility] [place] Temperature Oral (F) 2021-10-23 04:58:34 97.2 F [facility] Systolic (mm Hg) 2021-10-23 04:57:48 [facility] [place] Diastolic (mm Hg) 2021-10-23 04:57:48 [facility] [place] Respitory Rate 2021-10-23 00:54:28 [facility] Systolic (mm Hg) 2021-10-23 00:54:19 [facility] [place] Diastolic (mm Hg) 2021-10-23 00:54:19 [facility] [place] Temperature Oral (F) 2021-10-23 00:53:24 98.1 F [facility] Height 2021-10-20 23:39:00 149.86 cm [facility] Weight 2021-10-20 23:39:00 [facility] BMI Calculated 2021-10-20 23:39:00 [facility] [place] Systolic (mm Hg) 2021-10-10 14:00:00 [facility] [place] Diastolic (mm Hg) 2021-10-10 14:00:00 [facility] [place] Respitory Rate 2021-10-10 14:00:00 [facility] Respitory Rate 2021-10-10 13:00:00 [facility] [place] Systolic (mm Hg) 2021-10-10 13:00:00 [facility] [place] Diastolic (mm Hg) 2021-10-10 13:00:00 [facility] [place] Respitory Rate 2021-10-10 12:00:00 [facility] Systolic (mm Hg) 2021-10-10 12:00:00 [facility] [place] Diastolic (mm Hg) 2021-10-10 12:00:00 [facility] Respitory Rate 2021-10-09 05:00:00 [facility] [place] Systolic (mm Hg) 2021-10-09 05:00:00 Erwin [facility] Diastolic (mm Hg) 2021-10-09 05:00:00 [facility] [place] Respitory Rate 2021-10-09 04:00:00 [facility] [place] Systolic (mm Hg) 2021-10-09 04:00:00 Erwin [facility] Diastolic (mm Hg) 2021-10-09 04:00:00 [facility] Respitory Rate 2021-10-09 03:00:00 [facility] Systolic (mm Hg) 2021-10-09 03:00:00 [facility] [place] Diastolic (mm Hg) 2021-10-09 03:00:00 [facility] [place] Heart Rate 2021-10-06 15:55:41 [facility] Temperature Oral (F) 2021-10-06 15:55:32 98.3 F [facility] Heart Rate 2021-10-06 15:54:37 [facility] Heart Rate 2021-10-06 12:20:12 [facility] Temperature Oral (F) 2021-10-06 12:19:51 97.7 F [facility] Temperature Oral (F) 2021-10-06 09:20:54 97.9 F [facility] Height 2021-10-06 06:18:00 149.86 cm [facility] Weight 2021-10-06 06:18:00 [facility] BMI Calculated 2021-10-06 06:18:00 [facility] Respitory Rate 2018-05-22 17:30:00 [facility] [place] Systolic (mm Hg) 2018-05-22 17:30:00 Erwin [facility] Diastolic (mm Hg) 2018-05-22 17:30:00 [facility] Temperature Oral (F) 2018-05-22 17:30:00 98.4 F [facility] Temperature Oral (F) 2018-05-22 16:23:00 98.6 F [facility] Systolic (mm Hg) 2018-05-22 16:23:00 Erwin [facility] Diastolic (mm Hg) 2018-05-22 16:23:00 [facility] [place] Respitory Rate 2018-05-22 14:00:00 [facility] [place] Systolic (mm Hg) 2018-05-22 14:00:00 Erwin [facility] Diastolic (mm Hg) 2018-05-22 14:00:00 [facility] [place] Respitory Rate 2018-05-22 13:30:00 [facility] [place] BMI Calculated 2018-05-22 10:16:00 [facility] Height 2018-05-22 10:16:00 149.86 cm [facility] Weight 2018-05-22 10:16:00 [facility] Heart Rate 2018-05-22 10:16:00 [facility] Temperature Oral (F) 2018-05-22 10:16:00 97.9 F [facility] Temperature Oral (F) 2017-11-19 13:40:00 97.2 F [facility] Systolic (mm Hg) 2017-11-19 13:40:00 [facility] [facility] [place] Diastolic (mm Hg) 2017-11-19 13:40:00 [facility] Heart Rate 2017-11-19 13:40:00 [facility] Respitory Rate 2017-11-19 13:40:00 [facility] [place] Heart Rate 2017-11-19 05:24:00 [facility] Systolic (mm Hg) 2017-11-19 05:24:00 [facility] [place] Diastolic (mm Hg) 2017-11-19 05:24:00 [facility] [place] Respitory Rate 2017-11-19 05:24:00 [facility] Temperature Oral (F) 2017-11-19 05:24:00 98.1 F [facility] Respitory Rate 2017-11-19 01:15:00 [facility] [place] Systolic (mm Hg) 2017-11-19 01:15:00 Erwin [facility] Diastolic (mm Hg) 2017-11-19 01:15:00 [facility] [place] Heart Rate 2017-11-19 01:15:00 [facility] Temperature Oral (F) 2017-11-19 01:15:00 98.1 F [facility] Weight 2017-11-18 14:00:00 [facility] Weight 2017-11-17 14:00:00 [facility] Weight 2017-11-15 14:00:00 [facility] BMI Calculated 2017-11-15 05:43:00 [facility] [place] Height 2017-11-15 05:43:00 162.56 cm [facility] Height 2017-11-14 22:41:00 149.86 cm [facility] BMI Calculated 2017-11-14 22:41:00 [facility] [place] Procedures Procedure Date / Time Performing Clinician Source Performed PATIENT QUESTIONNAIRE 2022-07-05 06:01:00 Doctor Unassigned, No [facility] POCT HEMOGLOBIN A1C TEST 2022-06-25 19:04:00 Yudi Holloway [facility] POCT GLUCOSE (AUTOMATED) 2022-05-21 22:58:00 Negar Guardado [facility] POCT GLUCOSE (AUTOMATED) 2022-05-21 18:00:00 Negar Guardado [facility] POCT GLUCOSE (AUTOMATED) 2022-05-21 13:46:00 Negar Guardado [facility] BASIC METABOLIC PANEL 2022-05-21 10:49:00 [facility], K, CL, CO2, GLUCOSE, Medica l Branch BUN, CREATININE, CA) CBC WITH DIFF 2022-05-21 10:49:00 Cathleen Dileep [facility] LACTIC ACID WHOLE BLOOD 2022-05-21 02:31:00 Cathleen [facility] MRSA / MSSA SCREEN BY 2022-05-21 02:31:00 Negar Guardado [facility] PCR, [facility] POCT GLUCOSE (AUTOMATED) 2022-05-21 02:09:00 Negar Guardado [facility] BLOOD CULTURE SCREEN 2022-05-21 00:35:00 Lynette Fonseca [facility] URINALYSIS 2022-05-20 23:26:00 Lynette Fonseca [facility] BLOOD CULTURE SCREEN 2022-05-20 23:15:00 Lynette Fonseca [facility] COMP. METABOLIC PANEL 2022-05-20 23:08:00 Lynette Fonseca [facility] ([id number]) [facility] CBC WITH DIFF 2022-05-20 23:08:00 Lynette Fonseca [facility] LACTIC ACID WHOLE BLOOD 2022-05-20 23:07:00 Lynette Fonseca [facility] CT ABDOMEN PELVIS W 2022-05-13 02:06:00 Lamine Serna [facility] CONTRAST [facility] Branch LIPASE 2022-05-13 00:59:00 Lamine Serna [facility] COMP. METABOLIC PANEL 2022-05-13 00:59:00 Lamine Serna [facility] ([id number]) Medical Branch CBC WITH DIFF 2022-05-13 00:59:00 Lamine Serna [facility] URINALYSIS 2022-05-13 00:49:00 Lamine Serna [facility] POCT GLUCOSE (AUTOMATED) 2022-05-06 13:14:00 [facility] POCT GLUCOSE (AUTOMATED) 2022-05-06 01:14:00 Edker[facility] POCT GLUCOSE (AUTOMATED) 2022-05-05 21:19:00 [facility] BASIC METABOLIC PANEL 2022-05-05 11:23[facility] (NA, K, CL, CO2, GLUCOSE, Medica l Branch BUN, CREATININE, CA) CBC WITH DIFF 2022-05-05 [facility] 2022-05-05 01:13:00 Negar Guardado [facility] PCR, [facility] POCT GLUCOSE (AUTOMATED) 2022-05-05 01:11:00 [facility] POCT GLUCOSE (AUTOMATED) 2022-05-04 21:32:00 [facility] URINE CULTURE 2022-05-04 [facility] 2022-05-04 16:08:00 [facility] POCT GLUCOSE (AUTOMATED) 2022-05-04 12:43:00 [facility] ASPIRATE OR ABSCESS 2022-05-04 07:35[facility]EROBIC Med[facility] l Branch ) URINALYSIS 2022-05-04 07:32:00 [place], [facility] CT ABDOMEN PELVIS W 2022-05-04 07:25:15 Opal [facility] CONTRAST [facility] BLOOD CULTURE SCREEN 2022-05-04 06:01:00 [facility] 2022-05-04 06:01:00 Opal [facility] COMP. METABOLIC PANEL 2022-05-04 06:01:00 Diomedes Joseph [facility] ([id number]) [facility] CBC WITH DIFF 2022-05-04 06:01[facility] 2022-02-23 18:34:00 Ricardo Conroy [facility] POCT GLUCOSE (AUTOMATED) 2022-02-23 14:37:00 Ricardo Conroy [facility] BASIC METABOLIC PANEL 2022-02-23 13:22:00 [facility] (NA, K, CL, CO2, GLUCOSE, Medica l Branch BUN, CREATININE, CA) CBC WITH DIFF 2022-02-23 13:22:00 [facility] (AUTOMATED) 2022-02-23 10:56:00 Ricardo Conroy [facility] POCT GLUCOSE (AUTOMATED) 2022-02-23 05:46:00 Ricardo Conroy [facility] POCT GLUCOSE (AUTOMATED) 2022-02-23 02:17:00 Ricardo Conroy [facility] POCT GLUCOSE (AUTOMATED) 2022-02-22 23:13:00 Ricardo Conroy [facility] POCT GLUCOSE (AUTOMATED) 2022-02-22 18:22:00 Ricardo Conroy [facility] POCT GLUCOSE (AUTOMATED) 2022-02-22 14:56:00 Ricardo Conroy [facility] BASIC METABOLIC PANEL 2022-02-22 10:03:00 [facility] (NA, K, CL, CO2, GLUCOSE, Medica l Branch BUN, CREATININE, CA) CBC WITH DIFF 2022-02-22 10:03:00 Lorin Wynnnathan [facility] POCT GLUCOSE (AUTOMATED) 2022-02-22 02:18:00 Ricardo Conroy [facility] POCT GLUCOSE (AUTOMATED) 2022-02-21 22:26:00 [facility] ([facility]OMATED) 2022-02-21 18:57:00 Ricardo Conroy [facility] POCT GLUCOSE (AUTOMATED) 2022-02-21 18:57:00 Ricardo Conroy [facility] DUPLEX VENOUS ARMS 2022-02-21 17:28:45 [facility] BILATERAL - BY VASCULAR [facility] Branch LAB US DUPLEX VENOUS ARMS 2022-02-21 17:28:45 [facility] BILATERAL - BY VASCULAR [facility] LAB POCT GLUCOSE (AUTOMATED) 2022-02-21 15:20:00 Ricardo Conroy [facility] POCT GLUCOSE (AUTOMATED) 2022-02-21 15:20:00 Ricardo Conroy [facility] MAGNESIUM 2022-02-21 10:19:00 Ayo [facility] BASIC METABOLIC PANEL 2022-02-21 10:19:00 Negar Rollins [facility] (NA, K, CL, CO2, GLUCOSE, [place] Medica l Branch BUN, CREATININE, CA) CBC WITH DIFF 2022-02-21 10:19:00 Ayo [facility] MAGNESIUM 2022-02-21 10:19:00 Ayo [facility] BASIC METABOLIC PANEL 2022-02-21 10:19:00 Negar Rollins [facility] (NA, K, CL, CO2, GLUCOSE, [place] [facility] BUN, CREATININE, CA) CBC WITH DIFF 2022-02-21 10:19:00 Ayo [facility] POCT GLUCOSE (AUTOMATED) 2022-02-21 02:44:00 Ricardo Conroy [facility] POCT GLUCOSE (AUTOMATED) 2022-02-21 02:44:00 Ricardo Conroy [facility] POCT GLUCOSE (AUTOMATED) 2022-02-20 22:02:00 Ricardo Conroy [facility] POCT GLUCOSE (AUTOMATED) 2022-02-20 22:02:00 Ricardo Conroy [facility] FUNGUS (ROUTINE) CULTURE 2022-02-20 17:03:00 Chalino Paul [facility] TISSUE 2022-02-20 17:03:00 Sarah Beth Paul [facility] CULTURE(AEROBIC/ANAEROBIC A Medica l Branch ) FUNGUS (ROUTINE) CULTURE 2022-02-20 17:03:00 Chalino Paul [facility] TISSUE 2022-02-20 17:03:00 Sarah Beth Paul [facility] CULTURE(AEROBIC/ANAEROBIC A Medica l Branch ) FUNGUS (ROUTINE) CULTURE 2022-02-20 17:00:00 Chalino Paul [facility] TISSUE 2022-02-20 17:00:00 Sarah Beth Paul [facility] CULTURE(AEROBIC/ANAEROBIC A Medica l Branch ) FUNGUS (ROUTINE) CULTURE 2022-02-20 17:00:00 Chalino Paul [facility] TISSUE 2022-02-20 17:00:00 Sarah Beth Paul [facility] CULTURE(AEROBIC/ANAEROBIC A Medica l Branch ) FUNGUS (ROUTINE) CULTURE 2022-02-20 16:59:00 Chalino Paul [facility] TISSUE 2022-02-20 16:59:00 Sarah Beth Paul [facility] CULTURE(AEROBIC/ANAEROBIC A Medica l Branch ) FUNGUS (ROUTINE) CULTURE 2022-02-20 16:59:00 Chalino Paul [facility] TISSUE 2022-02-20 16:59:00 Sarah Beth Paul [facility] CULTURE(AEROBIC/ANAEROBIC A Medica l Branch ) FOOT DEBRIDEMENT 2022-02-20 16:11:00 Sarah Beth Paul [facility] Medical [place] FOOT DEBRIDEMENT 2022-02-20 16:11:00 Sarah Beth Paul [facility] Medical Branch COVID-19 (ID NOW RAPID 2022-02-20 14:36:00 David Wynn [facility] TESTING) Medical Branch LAB ONLY COVID 2022-02-20 14:36:00 [facility] (ID NOW RAPID 2022-02-20 14:36:00 David Wynn [facility] TESTING) Medical Branch LAB ONLY COVID 2022-02-20 14:36:00 [facility] PO[facility]SE (AUTOMATED) 2022-02-20 14:07:00 Aurora Martinez [facility] POCT GLUCOSE (AUTOMATED) 2022-02-20 14:07:00 Aurora Martinez [facility] HB ECG ROUTINE & RHYTHM 2022-02-20 13:27:17 Renetta [facility] CBC WITH DIFF 2022-02-20 10:55:00 Ayo [facility] CBC WITH DIFF 2022-02-20 10:55:00 Ayo [facility] MAGNESIUM 2022-02-20 10:40:00 Ayo [facility] BASIC METABOLIC PANEL 2022-02-20 10:40:00 Negar Rollins [facility] (NA, K, CL, CO2, GLUCOSE, [place] [facility] BUN, CREATININE, CA) COVID-19 (ID NOW RAPID 2022-02-20 10:40:00 Lucina Lyles [facility] TESTING) Medical Branch LAB ONLY COVID 2022-02-20 10:40:00 Lucina Lyles [facility] MAGNESIUM 2022-02-20 10:40:00 Ayo [facility] BASIC METABOLIC PANEL 2022-02-20 10:40:00 Negar Rollins [facility] (NA, K, CL, CO2, GLUCOSE, [place] [facility] BUN, CREATININE, CA) COVID-19 (ID NOW RAPID 2022-02-20 10:40:00 Kimberly Lylesssa [facility] TESTING) Medical Branch LAB ONLY COVID 2022-02-20 10:40:00 Rafal [facility] INTERPRETATION [facility] POCT GLUCOSE (AUTOMATED) 2022-02-20 02:29:00 Aurora Martinez [facility] POCT GLUCOSE (AUTOMATED) 2022-02-20 02:29:00 Aurora Martinez [facility] POCT GLUCOSE (AUTOMATED) 2022-02-19 23:39:00 Aurora Martinez [facility] POCT GLUCOSE (AUTOMATED) 2022-02-19 23:39:00 Aurora Martinez [facility] POCT GLUCOSE (AUTOMATED) 2022-02-19 17:10:00 Aurora Martinez [facility] POCT GLUCOSE (AUTOMATED) 2022-02-19 17:10:00 Aurora Martinez [facility] POCT GLUCOSE (AUTOMATED) 2022-02-19 17:10:00 Aurora Martinez [facility] POCT GLUCOSE (AUTOMATED) 2022-02-19 15:54:00 Aurora Martinez [facility] POCT GLUCOSE (AUTOMATED) 2022-02-19 15:54:00 Aurora Martinez [facility] POCT GLUCOSE (AUTOMATED) 2022-02-19 15:54:00 Aurora Martinez [facility] SEDIMENTATION RATE 2022-02-19 08:36:00 Indira Perry [facility] BASIC METABOLIC PANEL 2022-02-19 08:36:00 [facility] (NA, K, CL, CO2, GLUCOSE, Medica l Branch BUN, CREATININE, CA) CBC WITH DIFF 2022-02-19 08:36:00 Jose A [facility] MAGNESIUM 2022-02-19 08:36:00 Jose A [facility] MAGNESIUM 2022-02-19 08:36:00 [facility] PANEL 2022-02-19 08:36:00 Jose A [facility] (NA, K, CL, CO2, GLUCOSE, Medica l Branch BUN, CREATININE, CA) SEDIMENTATION RATE 2022-02-19 08:36:00 Vicky [facility] CBC WITH DIFF 2022-02-19 08:36:00 Jose A [facility] MAGNESIUM 2022-02-19 08:36:00 [facility] PANEL 2022-02-19 08:36:00 Jose A [facility] (NA, K, CL, CO2, GLUCOSE, Medica l Branch BUN, CREATININE, CA) SEDIMENTATION RATE 2022-02-19 08:36:00 Vicky [facility] CBC WITH DIFF 2022-02-19 08:36:00 Jose A [facility] POCT GLUCOSE (AUTOMATED) 2022-02-19 00:57:00 Vic Mcdonald [facility] POCT GLUCOSE (AUTOMATED) 2022-02-19 00:57:00 Vic Mcdonald B [facility] POCT GLUCOSE (AUTOMATED) 2022-02-19 00:57:00 Vic Mcdonald [facility] POCT GLUCOSE (AUTOMATED) 2022-02-18 21:26:00 Vic Mcdonald B [facility] POCT GLUCOSE (AUTOMATED) 2022-02-18 21:26:00 Vic Mcdonald [facility] POCT GLUCOSE (AUTOMATED) 2022-02-18 21:26:00 Vic Mcdonald B [facility] POCT GLUCOSE (AUTOMATED) 2022-02-18 16:47:00 Vic Mcdonald [facility] POCT GLUCOSE (AUTOMATED) 2022-02-18 16:47:00 Vic Mcdonald B [facility] POCT GLUCOSE (AUTOMATED) 2022-02-18 16:47:00 Vic Mcdonald [facility] BASIC METABOLIC PANEL 2022-02-18 14:21:00 Nai Naranjo [facility] (NA, K, CL, CO2, GLUCOSE, Medica l Branch BUN, CREATININE, CA) C-REACTIVE PROTEIN 2022-02-18 14:21:00 [facility] C-REACTIVE PROTEIN 2022-02-18 14:21:00 [facility] BASIC METABOLIC PANEL 2022-02-18 14:21:00 Jose A [facility] (NA, K, CL, CO2, GLUCOSE, Medica l Branch BUN, CREATININE, CA) C-REACTIVE PROTEIN 2022-02-18 14:21:00 [facility] BASIC METABOLIC PANEL 2022-02-18 14:21:00 Jose A [facility] (NA, K, CL, CO2, GLUCOSE, Medica l Branch BUN, CREATININE, CA) POCT GLUCOSE (AUTOMATED) 2022-02-18 12:34:00 Vic Mcdonald [facility] POCT GLUCOSE (AUTOMATED) 2022-02-18 12:34:00 Vic Mcdonald [facility] POCT GLUCOSE (AUTOMATED) 2022-02-18 12:34:00 Vic Mcdonald [facility] POCT GLUCOSE (AUTOMATED) 2022-02-18 01:28:00 Vic Mcdonald [facility] POCT GLUCOSE (AUTOMATED) 2022-02-18 01:28:00 Vic Mcdonald [facility] POCT GLUCOSE (AUTOMATED) 2022-02-18 01:28:00 Vic Mcdonald [facility] POCT GLUCOSE (AUTOMATED) 2022-02-17 21:13:00 Vic Mcdonald [facility] POCT GLUCOSE (AUTOMATED) 2022-02-17 21:13:00 Vic Mcdonald [facility] POCT GLUCOSE (AUTOMATED) 2022-02-17 21:13:00 Vic Mcdonald [facility] POCT GLUCOSE (AUTOMATED) 2022-02-17 16:39:00 Vic Mcdonald [facility] POCT GLUCOSE (AUTOMATED) 2022-02-17 16:39:00 Vic Mcdonald [facility] POCT GLUCOSE (AUTOMATED) 2022-02-17 16:39:00 Vic Mcdonald [facility] POCT GLUCOSE (AUTOMATED) 2022-02-17 13:11:00 Vic Mcdonald [facility] POCT GLUCOSE (AUTOMATED) 2022-02-17 13:11:00 Vic Mcdonald [facility] POCT GLUCOSE (AUTOMATED) 2022-02-17 13:11:00 Vic Mcdonald [facility] MAGNESIUM 2022-02-17 10:28:00 Corbin [facility] BASIC METABOLIC PANEL 2022-02-17 10:28:00 [facility] (NA, K, CL, CO2, GLUCOSE, Medica l Branch BUN, CREATININE, CA) MAGNESIUM 2022-02-17 10:28:00 [facility] BASIC METABOLIC PANEL 2022-02-17 10:28:00 [facility] (NA, K, CL, CO2, GLUCOSE, Medica l Branch BUN, CREATININE, CA) MAGNESIUM 2022-02-17 10:28:00 Corbin [facility] BASIC METABOLIC PANEL 2022-02-17 10:28:00 [facility] (NA, K, CL, CO2, GLUCOSE, Medica l Branch BUN, CREATININE, CA) POCT GLUCOSE (AUTOMATED) 2022-02-17 10:01:00 Vic Mcdonald [facility] POCT GLUCOSE (AUTOMATED) 2022-02-17 10:01:00 Vic Mcdonald [facility] POCT GLUCOSE (AUTOMATED) 2022-02-17 10:01:00 Vic Mcdonald [facility] POCT GLUCOSE (AUTOMATED) 2022-02-17 06:32:00 Vic Mcdonald [facility] POCT GLUCOSE (AUTOMATED) 2022-02-17 06:32:00 Vic Mcdonald [facility] POCT GLUCOSE (AUTOMATED) 2022-02-17 06:32:00 Vic Mcdonlad [facility] BASIC METABOLIC PANEL 2022-02-17 02:01:00 Corbin rob [facility] (NA, K, CL, CO2, GLUCOSE, Medica l Branch BUN, CREATININE, CA) BASIC METABOLIC PANEL 2022-02-17 02:01:00 [facility] (NA, K, CL, CO2, GLUCOSE, Medica l Branch BUN, CREATININE, CA) BASIC METABOLIC PANEL 2022-02-17 02:01:00 Corbin rob [facility] (NA, K, CL, CO2, GLUCOSE, Medica l Branch BUN, CREATININE, CA) POCT GLUCOSE (AUTOMATED) 2022-02-17 01:53:00 Vic Mcdonald [facility] POCT GLUCOSE (AUTOMATED) 2022-02-17 01:53:00 Vic Mcdonald [facility] POCT GLUCOSE (AUTOMATED) 2022-02-17 01:53:00 Vic Mcdonald [facility] POCT GLUCOSE (AUTOMATED) 2022-02-16 23:02:00 Vic Mcdonald [facility] POCT GLUCOSE (AUTOMATED) 2022-02-16 23:02:00 Vic Mcdonald [facility] POCT GLUCOSE (AUTOMATED) 2022-02-16 23:02:00 Vic Mcdonald [facility] XR FOOT 3+ VW BILATERAL 2022-02-16 21:35:00 Sarah Beth Paul [facility] XR FOOT 3+ VW BILATERAL 2022-02-16 21:35:00 Twin Paulatosin [facility] XR FOOT 3+ VW BILATERAL 2022-02-16 21:35:00 Sarah Beth Paul [facility] POCT GLUCOSE (AUTOMATED) 2022-02-16 20:45:00 Vic Mcdonald [facility] POCT GLUCOSE (AUTOMATED) 2022-02-16 20:45:00 Vic Mcdonald [facility] POCT GLUCOSE (AUTOMATED) 2022-02-16 20:45:00 Vic Mcdonald [facility] POCT GLUCOSE (AUTOMATED) 2022-02-16 16:41:00 Vic Mcdonald [facility] POCT GLUCOSE (AUTOMATED) 2022-02-16 16:41:00 Vic Mcdonald [facility] POCT GLUCOSE (AUTOMATED) 2022-02-16 16:41:00 Vic Mcdonald [facility] BASIC METABOLIC PANEL 2022-02-16 15:35:00 Vic Mcdonald [facility] [place] (NA, K, CL, CO2, GLUCOSE, Medica l Branch BUN, CREATININE, CA) BASIC METABOLIC PANEL 2022-02-16 15:35:00 Vic Mcdonald [facility] [place] (NA, K, CL, CO2, GLUCOSE, Medica l Branch BUN, CREATININE, CA) BASIC METABOLIC PANEL 2022-02-16 15:35:00 Vic Mcdonald [facility] (NA, K, CL, CO2, GLUCOSE, Medica l Branch BUN, CREATININE, CA) BETA HYDROXY-BUTYRATE 2022-02-16 15:34:00 Kiran Rodríguez [facility] BETA HYDROXY-BUTYRATE 2022-02-16 15:34:00 Kiran Rodríguez [facility] BETA HYDROXY-BUTYRATE 2022-02-16 15:34:00 Kiran Rodríguez [facility] POCT GLUCOSE (AUTOMATED) 2022-02-16 14:20:00 Vic Mcdonald [facility] POCT GLUCOSE (AUTOMATED) 2022-02-16 14:20:00 Vic Mcdonald [facility] POCT GLUCOSE (AUTOMATED) 2022-02-16 14:20:00 Vic Mcdonald [facility] POCT GLUCOSE (AUTOMATED) 2022-02-16 12:52:00 Vic Mcdonald [facility] POCT GLUCOSE (AUTOMATED) 2022-02-16 12:52:00 Vic Mcdonald [facility] POCT GLUCOSE (AUTOMATED) 2022-02-16 12:52:00 Vic Mcdonald [facility] POCT GLUCOSE (AUTOMATED) 2022-02-16 09:04:00 Vic Mcdonald [facility] POCT GLUCOSE (AUTOMATED) 2022-02-16 09:04:00 Vic Mcdonald [facility] POCT GLUCOSE (AUTOMATED) 2022-02-16 09:04:00 Vic Mcdonald [facility] BASIC METABOLIC PANEL 2022-02-16 06:13:00 Myrna Chen [facility] (NA, K, CL, CO2, GLUCOSE, Medica l Branch BUN, CREATININE, CA) GLUTAMIC ACID 2022-02-16 06:13:00 Myrna Chen [facility] Branch CBC WITHOUT DIFF 2022-02-16 06:13:00 [facility] 2022-02-16 06:13:00 [facility] 2022-02-16 06:13:00 April [facility] BASIC METABOLIC PANEL 2022-02-16 06:13:00 [facility] (NA, K, CL, CO2, GLUCOSE, Medica l Branch BUN, CREATININE, CA) CBC WITHOUT DIFF 2022-02-16 06:13:00 [facility] GLUTAMIC ACID 2022-02-16 06:13:00 April [facility] DECARBOXYLASE AB Medical Branch MAGNESIUM 2022-02-16 06:13:00 April [facility] BASIC METABOLIC PANEL 2022-02-16 06:13:00 [facility] (NA, K, CL, CO2, GLUCOSE, Medica l Branch BUN, CREATININE, CA) CBC WITHOUT DIFF 2022-02-16 06:13:00 April [facility] GLUTAMIC ACID 2022-02-16 06:13:00 April [facility] DECARBOXYLASE AB Medical Branch POCT GLUCOSE (AUTOMATED) 2022-02-16 05:45:00 Vic Mcdonald [facility] POCT GLUCOSE (AUTOMATED) 2022-02-16 05:45:00 Vic Mcdonald [facility] POCT GLUCOSE (AUTOMATED) 2022-02-16 05:45:00 Vic Mcdonald [facility] POCT GLUCOSE (AUTOMATED) 2022-02-16 01:26:00 Vic Mcdonald [facility] [place] [facility] POCT GLUCOSE (AUTOMATED) 2022-02-16 01:26:00 Vic Mcdonald [facility] [place] [facility] POCT GLUCOSE (AUTOMATED) 2022-02-16 01:26:00 iVc Mcdonald Un [facility] POCT GLUCOSE (AUTOMATED) 2022-02-15 23:42:00 Vic Mcdonald [facility] [place] [facility] POCT GLUCOSE (AUTOMATED) 2022-02-15 23:42:00 Vic Mcdonald [facility] POCT GLUCOSE (AUTOMATED) 2022-02-15 23:42:00 Vic Mcdonald [facility] [place] [facility] BASIC METABOLIC PANEL 2022-02-15 22:51:00 Vic Mcdonald [facility] (NA, K, CL, CO2, GLUCOSE, Medica l Branch BUN, CREATININE, CA) BASIC METABOLIC PANEL 2022-02-15 22:51:00 Vic Mcdonald [facility] (NA, K, CL, CO2, GLUCOSE, Medica l Branch BUN, CREATININE, CA) BASIC METABOLIC PANEL 2022-02-15 22:51:00 Vic Mcdonald [facility] (NA, K, CL, CO2, GLUCOSE, Medica l Branch BUN, CREATININE, CA) POCT GLUCOSE (AUTOMATED) 2022-02-15 22:37:00 Vic Mcdonald [facility] [place] [facility] POCT GLUCOSE (AUTOMATED) 2022-02-15 22:37:00 Vic Mcdonald [facility] [place] [facility] POCT GLUCOSE (AUTOMATED) 2022-02-15 22:37:00 Vic Mcdonald [facility] [place] [facility] POCT GLUCOSE (AUTOMATED) 2022-02-15 21:30:00 Vic Mcdonald [facility] [place] [facility] POCT GLUCOSE (AUTOMATED) 2022-02-15 21:30:00 Vic Mcdonald [facility] [place] [facility] POCT GLUCOSE (AUTOMATED) 2022-02-15 21:30:00 Vic Mcdonald [facility] [place] [facility] POCT GLUCOSE (AUTOMATED) 2022-02-15 20:05:00 Vic Mcdonald [facility] [place] [facility] POCT GLUCOSE (AUTOMATED) 2022-02-15 20:05:00 Vic Mcdonald [facility] [place] [facility] POCT GLUCOSE (AUTOMATED) 2022-02-15 20:05:00 Vic Mcdonadl [facility] [place] [facility] HB ECG ROUTINE & RHYTHM 2022-02-15 19:59:13 Lacey Alaniz [facility] HB ECG ROUTINE & RHYTHM 2022-02-15 19:59:13 Lacey Alaniz Uni vers[facility] of [facility] HB ECG ROUTINE & RHYTHM 2022-02-15 19:59:13 Lacey Alaniz [facility] POCT GLUCOSE (AUTOMATED) 2022-02-15 19:06:00 Vic Mcdonald [facility] [place] [facility] POCT GLUCOSE (AUTOMATED) 2022-02-15 19:06:00 Vic Mcdonald Un [facility] POCT GLUCOSE (AUTOMATED) 2022-02-15 19:06:00 Vic [facility]cdonald [facility] 2022-02-15 18:49:00 [facility]-02-15 18:49:00 Naranjo, [facility] BLOOD CULTURE SCREEN 2022-02-15 18:49:00 Naranjo, [facility] BLOOD CULTURE SCREEN 2022-02-15 18:48:00 Naranjo, [facility] BLOOD CULTURE SCREEN 2022-02-15 18:48:00 Naranjo, [facility] BLOOD CULTURE SCREEN 2022-02-15 18:48:00 Jose A, [facility] XR CHEST 1 VW 2022-02-15 18:34:00 Corbin [facility] XR CHEST 1 VW 2022-02-15 18:34:00 Butt [facility] XR CHEST 1 2022-02-15 18:34:00 Corbin [facility] BASIC METABOLIC PANEL 2022-02-15 17:49:00 Vic Mcdonald [facility] (NA, K, CL, CO2, GLUCOSE, Medica l Branch BUN, CREATININE, CA) TROPONIN I 2022-02-15 17:49:00 Anne, [facility] TROPONIN I 2022-02-15 17:49:00 Anne, [facility] BASIC METABOLIC PANEL 2022-02-15 17:49:00 Vic Mcdonald [facility] (NA, K, CL, CO2, GLUCOSE, Medica l Branch BUN, CREATININE, CA) TROPONIN I 2022-02-15 17:49:00 Anne, [facility] BASIC METABOLIC PANEL 2022-02-15 17:49:00 Vic Mcdonald [facility] (NA, K, CL, CO2, GLUCOSE, Medica l Branch BUN, CREATININE, CA) POCT GLUCOSE (AUTOMATED) 2022-02-15 17:27:00 Vic Mcdonald [facility] [place] [facility] POCT GLUCOSE (AUTOMATED) 2022-02-15 17:27:00 Vic Mcdonald [facility] [place] [facility] POCT GLUCOSE (AUTOMATED) 2022-02-15 17:27:00 Vic Mcdonald [facility] [place] [facility] POCT GLUCOSE (AUTOMATED) 2022-02-15 15:53:00 Vic Mcdonald [facility] [place] [facility] POCT GLUCOSE (AUTOMATED) 2022-02-15 15:53:00 Vic Mcdonald [facility] [place] [facility] POCT GLUCOSE (AUTOMATED) 2022-02-15 15:53:00 Vic Mcdonald [facility] [place] [facility] BASIC METABOLIC PANEL 2022-02-15 15:32:00 Vic Mcdonald [facility] [place] (NA, K, CL, CO2, GLUCOSE, Medica l Branch BUN, CREATININE, CA) BASIC METABOLIC PANEL 2022-02-15 15:32:00 Vic Mcdonald [facility] [place] (NA, K, CL, CO2, GLUCOSE, Medica l Branch BUN, CREATININE, CA) BASIC METABOLIC PANEL 2022-02-15 15:32:00 Vic Mcdonald Unive rsity [facility] (NA, K, CL, CO2, GLUCOSE, Medica l Branch BUN, CREATININE, CA) POCT GLUCOSE (AUTOMATED) 2022-02-15 14:56:00 Vic [facility]cdonald [facility] POCT GLUCOSE (AUTOMATED) 2022-02-15 14:56:00 Vic Mcdonald [facility] POCT GLUCOSE (AUTOMATED) 2022-02-15 14:56:00 Vic Mcdonald B [facility] POCT GLUCOSE (AUTOMATED) 2022-02-15 13:48:00 Vic Mcdonald [facility] POCT GLUCOSE (AUTOMATED) 2022-02-15 13:48:00 Vic Mcdonald Un iversity of [facility] POCT GLUCOSE (AUTOMATED) 2022-02-15 13:48:00 Vic Mcdonald Un iversity of [facility] POCT GLUCOSE (AUTOMATED) 2022-02-15 10:42:00 Vic Mcdonald Un iversity of [facility] POCT GLUCOSE (AUTOMATED) 2022-02-15 10:42:00 Vic Mcdonald Un iversity of [facility] POCT GLUCOSE (AUTOMATED) 2022-02-15 10:42:00 Vic Mcdonald Un iversity [facility] BASIC METABOLIC PANEL 2022-02-15 10:14:00 [facility] ([facility], [facility], CL, CO2, GLUCOSE, Medica l Branch BUN, CREATININE, CA) MAGNESIUM 2022-02-15 10:14:00 [facility] 2022-[facility]-15 10:14:00 [facility] BASIC METABOLIC PANEL 2022-02-15 10:14:00 Naranjo, [facility] (NA, K, CL, CO2, GLUCOSE, Medica l Branch BUN, CREATININE, CA) MAGNESIUM 2022-02-15 10:14:00 [facility] MET[facility]OLIC PANEL 2022-02-15 10:14:00 Naranjo, [facility] (NA, K, CL, CO2, GLUCOSE, Medica l Branch BUN, CREATININE, CA) POCT GLUCOSE (AUTOMATED) 2022-02-15 09:30:00 Vic Mcdonald Un iversity of [facility] POCT GLUCOSE (AUTOMATED) 2022-02-15 09:30:00 Vic Mcdonald Un iversity of [facility] POCT GLUCOSE (AUTOMATED) 2022-02-15 09:30:00 Vic Mcdonald Un iversity of [facility] POCT GLUCOSE (AUTOMATED) 2022-02-15 07:11:00 Vic Mcdonald Un iversity of [facility] POCT GLUCOSE (AUTOMATED) 2022-02-15 07:11:00 [facility] 2022-02-15 07:11:00 [facility] OSMOLALITY, SERUM OR 2022-02-15 07:07:00 Vic Mcdonalder [facility] BETA HYDROXY-BUTYRATE 2022-02-15 07:07:00 [facility]SMOLAL[facility], SERUM OR 2022-02-15 07:07:00 Vic Mcdonalder [facility] BETA HYDROXY-BUTYRATE 2022-02-15 07:07:00 Vic Mcdonald [facility] OSMOLALITY, SERUM OR 2022-02-15 07:07:00 Vic Mcdonalder [facility] BETA HYDROXY-BUTYRATE 2022-02-15 07:07:00 Vic Mcdonald [facility] BASIC METABOLIC PANEL 2022-02-15 07:06:00 Vic Mcdonald [facility] (NA, K, CL, CO2, GLUCOSE, Medica l Branch BUN, CREATININE, CA) BASIC METABOLIC PANEL 2022-02-15 07:06:00 Vic Mcdonald Unive [facility] (NA, K, CL, CO2, GLUCOSE, Medica l Branch BUN, CREATININE, CA) BASIC METABOLIC PANEL 2022-02-15 07:06:00 Vic Mcdonald [facility] (NA, K, CL, CO2, GLUCOSE, Medica l Branch BUN, CREATININE, CA) CT ABDOMEN PELVIS W 2022-02-15 05:28:46 Vic Mcdonald [facility] CONTRAST [facility] CT ABDOMEN PELVIS W 2022-02-15 05:28:46 Vic Mcdonald Univers y [facility] CONTRAST [facility] CT ABDOMEN PELVIS W 2022-02-15 05:28:46 Vic Mcdonald Univers [facility] CONTRAST [facility] POCT GLUCOSE(AGE >30DAYS) 2022-02-15 05:11:00 Vic [facility]onald [facility] PO[facility] GLUCOSE(AGE >30DAYS) 2022-02-15 05:11:00 Vic [facility] POCT GLUCOSE(AGE >30DAYS) 2022-02-15 05:11:00 [facility] POCT GLUCOSE (AUTOMATED) 2022-02-15 05:08:00 [facility] PO[facility] GLUCOSE (AUTOMATED) 2022-02-15 05:08:00 [facility] PO[facility] GLUCOSE (AUTOMATED) 2022-02-15 05:08:00 Vic [facility] BLOOD CULTURE SCREEN 2022-02-15 04:31:00 Vic Mcdonald [facility] BLOOD CULTURE WORKUP 2022-02-15 04:31:00 Vic Mcdonald [facility] GRAM POSITIVE BLOOD 2022-02-15 04:31:00 Vic Mcdonald [facility] PATHOGENS [facility] PROBE-AEROBIC BLOOD CULTURE SCREEN 2022-02-15 04:31:00 Vic Mcdonald [facility] BLOOD CULTURE WORKUP 2022-02-15 04:31:00 Vic Mcdonald [facility] GRAM POSITIVE BLOOD 2022-02-15 04:31:00 Vic Mcdonald [facility] PATHOGENS [facility] PROBE-AEROBIC BLOOD CULTURE SCREEN 2022-02-15 04:31:00 Vic Mcdonald Univer [facility] BLOOD CULTURE WORKUP 2022-02-15 04:31:00 [facility] BLOOD 2022-02-15 04:31:00 Vic Mcdonald [facility] PATHOGENS [facility] PROBE-AEROBIC URINALYSIS 2022-02-15 04:21:00 Vic Mcdonald [facility] URINE CULTURE 2022-02-15 04:21:00 Vic Mcdonald [facility] URINALYSIS 2022-02-15 04:21:00 Vic Mcdonald [facility] URINE CULTURE 2022-02-15 04:21:00 Vic Mcdonald [facility] URINALYSIS 2022-02-15 04:21:00 Vic Mcdonald [facility] URINE CULTURE 2022-02-15 04:21:00 Vic Mcdonald [facility] COVID-19 (ID NOW RAPID 2022-02-15 04:20:00 [facility] TESTING) Medical Branch LAB ONLY COVID 2022-02-15 04:20:00 Vic Mcdonald [facility] COVID-19 (ID NOW RAPID 2022-02-15 04:20:00 [facility] TESTING) Medical Branch LAB ONLY COVID 2022-02-15 04:20:00 Vic Mcdonald [facility] COVID-19 (ID NOW RAPID 2022-02-15 04:20:00 [facility] TESTING) Medical Branch LAB ONLY COVID 2022-02-15 04:20:00 Vic Mcdonald [facility] CBC WITH DIFF 2022-02-15 04:18:00 Harry Vic B [facility] PROTHROMBIN TIME / INR 2022-02-15 04:18:00 [facility] BASIC METABOLIC PANEL 2022-02-15 04:18:00 Vic Mcdonald [facility] (NA, K, CL, CO2, GLUCOSE, Medica l Branch BUN, CREATININE, CA) HEPATIC FUNCTION PANEL 2022-02-15 04:18:00 [facility] ([id number]) (ALB,T.PRO,BILI Medical Branch T,BU/BC,ALT,AST,ALK PHOS) LIPASE 2022-02-15 04:18:00 Vic Mcdonald [facility] ACUTE CARE VENOUS BLOOD 2022-02-15 04:18:00 Vic Mcdonald [facility] LACTIC ACID WHOLE BLOOD 2022-02-15 04:18:00 Vic Mcdonald [facility] MAGNESIUM 2022-02-15 04:18:00 Vic Mcdonald [facility] PHOSPHORUS 2022-02-15 04:18:00 Vic Mcdonald [facility] GLYCOSYLATED HEMOGLOBIN 2022-02-15 04:18:00 Vic Mcdonald [facility] (A1C) [facility] PHOSPHORUS 2022-02-15 04:18:00 Vic Mcdonald [facility] LIPASE 2022-02-15 04:18:00 Vic Mcdonald [facility] MAGNESIUM 2022-02-15 04:18:00 Vic Mcdonald [facility] HEPATIC FUNCTION PANEL 2022-02-15 04:18:00 Vic Mcdonald [facility] ([id number]) (ALB,T.PRO,BILI Medical Branch T,BU/BC,ALT,AST,ALK PHOS) BASIC METABOLIC PANEL 2022-02-15 04:18:00 Vic Mcdonald [facility] (NA, K, CL, CO2, GLUCOSE, Medica l Branch BUN, CREATININE, CA) ACUTE CARE VENOUS BLOOD 2022-02-15 04:18:00 Vic Mcdonald [facility] GAS [facility] CBC WITH DIFF 2022-02-15 04:18:00 Vic Mcdonald [facility] GLYCOSYLATED HEMOGLOBIN 2022-02-15 04:18:00 Vic Mcdonald [facility] PROTHROMBIN TIME / INR 2022-02-15 04:18:00 Vic Mcdonald [facility] LACTIC ACID WHOLE BLOOD 2022-02-15 04:18:00 Vic Mcdonald [facility] PHOSPHORUS 2022-02-15 04:18:00 Vic Mcdonald [facility] LIPASE 2022-02-15 04:18:00 Vic Mcdonald [facility] MAGNESIUM 2022-02-15 04:18:00 Vic Mcdonald [facility] HEPATIC FUNCTION PANEL 2022-02-15 04:18:00 Vic Mcdonald [facility] ([id number]) (ALB,T.PRO,BILI Medical Branch T,BU/BC,ALT,AST,ALK PHOS) BASIC METABOLIC PANEL 2022-02-15 04:18:00 Vic Mcdonald [facility] (NA, K, CL, CO2, GLUCOSE, Medica l Branch BUN, CREATININE, CA) ACUTE CARE VENOUS BLOOD 2022-02-15 04:18:[address] [facility] CBC WITH DIFF 2022-02-15 04:18:00 Vic Mcdonald [facility] GLYCOSYLATED HEMOGLOBIN 2022-02-15 04:18:00 Vic Mcdonald [facility] (A1C) [facility] PROTHROMBIN TIME / INR 2022-02-15 04:18:00 Vic Mcdonald [facility] LACTIC ACID WHOLE BLOOD 2022-02-15 04:18:00 Vic Mcdonald Uni versity of [facility] EMERGENCY DEPARTMENT 2022-02-14 05:01:00 Doctor Unassigned, No U niversity of [facility] HOSPITAL ADMISSION 2022-02-14 05:01:00 Doctor Unassigned, No Uni versity of [facility] EMERGENCY DEPARTMENT 2022-02-14 05:01:00 Doctor Unassigned, No U niversity of [facility] HOSPITAL ADMISSION 2022-02-14 05:01:00 Doctor Unassigned, No Uni versity of [facility] EMERGENCY DEPARTMENT 2022-02-14 05:01:00 Doctor Unassigned, No U niversity of [facility] HOSPITAL ADMISSION 2022-02-14 05:01:00 Doctor Unassigned, No Uni versity of [facility] POCT GLUCOSE (AUTOMATED) 2022-02-10 19:34:00 Kaylee Argueta Uni versity of [facility] POCT GLUCOSE (AUTOMATED) 2022-02-10 19:34:00 Kaylee Argueta Uni versity of [facility] POCT GLUCOSE (AUTOMATED) 2022-02-10 16:39:00 Kaylee Argueta Uni versity of [facility] POCT GLUCOSE (AUTOMATED) 2022-02-10 16:39:00 EllieKaylee [facility] BASIC METABOLIC PANEL 2022-02-10 09:13:00 [facility] (NA, K, CL, CO2, GLUCOSE, Medica l Branch BUN, CREATININE, CA) BASIC METABOLIC PANEL 2022-02-10 09:13:00 [facility] (NA, K, CL, CO2, GLUCOSE, Medica l Branch BUN, CREATININE, CA) POCT GLUCOSE (AUTOMATED) 2022-02-10 01:45:00 EllieKaylee Gazzang [facility] POCT GLUCOSE (AUTOMATED) 2022-02-10 01:45:00 Ellie Kaylee Gazzang [facility] POCT GLUCOSE (AUTOMATED) 2022-02-09 21:36:00 Ellie Kaylee Gazzang [facility] POCT GLUCOSE (AUTOMATED) 2022-02-09 21:36:00 Ellie Kaylee Gazzang [facility] POCT GLUCOSE (AUTOMATED) 2022-02-09 16:45:00 Ellie Kaylee Gazzang [facility] POCT GLUCOSE (AUTOMATED) 2022-02-09 16:45:00 Ellie Kaylee Gazzang [facility] PHOSPHORUS 2022-02-09 13:17:00 Cathleen [facility] MAGNESIUM 2022-02-09 13:17:00 Cathleen [facility] BASIC METABOLIC PANEL 2022-02-09 13:17:00 Dileep Connolly [facility] (NA, K, CL, CO2, GLUCOSE, Medica l Branch BUN, CREATININE, CA) BASIC METABOLIC PANEL 2022-02-09 13:17:00 Cathleen [facility] (NA, K, CL, CO2, GLUCOSE, Medica l Branch BUN, CREATININE, CA) MAGNESIUM 2022-02-09 13:17:00 Cathleen [facility] PHOSPHORUS 2022-02-09 13:17:00 Cathleen [facility] POCT GLUCOSE (AUTOMATED) 2022-02-09 12:42:00 Ellie Kaylee Uni versity of [facility] POCT GLUCOSE (AUTOMATED) 2022-02-09 12:42:00 Ellie Kaylee Uni versity of [facility] POCT GLUCOSE (AUTOMATED) 2022-02-09 01:08:00 Ellie Kaylee Aguilar versity of [facility] POCT GLUCOSE (AUTOMATED) 2022-02-09 01:08:00 Kaylee Argueta Lauren versity of [facility] URINALYSIS 2022-02-08 22:52:[facility]08 22:52[facility]08 22:52[facility]00 [facility] 2022-02-08 22:52:00 [facility] PO[facility]SE (AUTOMATED) 2022-02-08 21:40:00 Ellie Kaylee Uni versity of [facility] POCT GLUCOSE (AUTOMATED) 2022-02-08 21:40:00 Ellie Kaylee Uni versity of [facility] POCT GLUCOSE (AUTOMATED) 2022-02-08 16:02:00 Ellie Kaylee Uni versity of [facility] POCT GLUCOSE (AUTOMATED) 2022-02-08 16:02:00 Ellie Kaylee Uni versity of [facility] POCT GLUCOSE (AUTOMATED) 2022-02-08 13:08:00 Ellie Kaylee Uni versity of [facility] POCT GLUCOSE (AUTOMATED) 2022-02-08 13:08:00 Ellie Kaylee Uni versity of [facility] POCT GLUCOSE (AUTOMATED) 2022-02-08 10:58:00 Ellie Kaylee Uni versity of [facility] POCT GLUCOSE (AUTOMATED) 2022-02-08 10:58:00 Ellie Farzadlizet Uni versity of [facility] LACTIC ACID WHOLE BLOOD 2022-02-08 09:47:00 Severino Beth [facility] LACTIC ACID WHOLE BLOOD 2022-02-08 09:47:00 Severino Beth [facility] PHOSPHORUS 2022-02-08 09:46:00 Severino Beth [facility] MAGNESIUM 2022-02-08 09:46:00 [facility] 2022-02-08 09:46:00 Severino Beth [facility] ([id number]) [facility] CBC WITH DIFF 2022-02-08 09:46:00 Kirit [facility] CBC WITH DIFF 2022-02-08 09:46:00 Severino Beth [facility] COMP. METABOLIC PANEL 2022-02-08 09:46:00 Kirit Severino [facility] ([id number]) [facility] MAGNESIUM 2022-02-08 09:46:00 [facility] PHOSPHORUS 2022-02-08 09:46:00 [facility] POCT GLUCOSE (AUTOMATED) 2022-02-08 07:47:00 Kaylee Argueta Uni [facility] POCT GLUCOSE (AUTOMATED) 2022-02-08 07:47:00 Kaylee Argueta Gazzang [facility] POCT GLUCOSE (AUTOMATED) 2022-02-08 03:40:00 Kaylee Argueta Gazzang [facility] POCT GLUCOSE (AUTOMATED) 2022-02-08 03:40:00 Kaylee Argueta Gazzang [facility] POCT GLUCOSE (AUTOMATED) 2022-02-08 00:43:00 Kaylee Argueta Gazzang [facility] POCT GLUCOSE (AUTOMATED) 2022-02-08 00:43:00 Kaylee Argueta Gazzang [facility] BASIC METABOLIC PANEL 2022-02-07 23:29:00 Severino Beth [facility] (NA, K, CL, CO2, GLUCOSE, Medica l Branch BUN, CREATININE, CA) BASIC METABOLIC PANEL 2022-02-07 23:29:00 Severino Beth [facility] (NA, K, CL, CO2, GLUCOSE, Medica l Branch BUN, CREATININE, CA) POCT GLUCOSE (AUTOMATED) 2022-02-07 22:28:00 Kaylee Argueta Lauren [facility] POCT GLUCOSE (AUTOMATED) 2022-02-07 22:28:00 Kaylee Argueta Lauren [facility] US RETROPERITONEAL 2022-02-07 22:27:00 Severino Beth [facility] COMPLETE Medical Branch US RETROPERITONEAL 2022-02-07 22:27:00 Severino Beth [facility] COMPLETE [facility] CT ABDOMEN PELVIS WO 2022-02-07 20:05:00 Severino Beth [facility] CONTRAST [facility] CT ABDOMEN PELVIS WO 2022-02-07 20:05:00 Severino Beth [facility] CONTRAST [facility] POCT GLUCOSE (AUTOMATED) 2022-02-07 19:07:00 Ellie Farzadlizet Gazzang [facility] POCT GLUCOSE (AUTOMATED) 2022-02-07 19:07:00 Ellie Farzadlizet Gazzang [facility] POCT GLUCOSE (AUTOMATED) 2022-02-07 18:00:00 Ellie Kaylee Gazzang [facility] POCT GLUCOSE (AUTOMATED) 2022-02-07 18:00:00 Kaylee Argueta Gazzang [facility] PROTEIN CREAT RATIO URINE 2022-02-07 17:45:00 Augusta Hendricks [facility] RANDOM [facility] PROTEIN CREAT RATIO URINE 2022-02-07 17:45:00 Augusta Hendricks [facility] RANDOM [facility] POCT GLUCOSE (AUTOMATED) 2022-02-07 17:25:00 Ellie Farzadlizet Gazzang [facility] POCT GLUCOSE (AUTOMATED) 2022-02-07 17:25:00 Kaylee Argueta Gazzang [facility] LACTIC ACID WHOLE BLOOD 2022-02-07 17:23:00 Severino Beth [facility] LACTIC ACID WHOLE BLOOD 2022-02-07 17:23:00 Severino Beth [facility] BASIC METABOLIC PANEL 2022-02-07 17:22:00 Severino Beth [facility] (NA, K, CL, CO2, GLUCOSE, Medica l Branch BUN, CREATININE, CA) BASIC METABOLIC PANEL 2022-02-07 17:22:00 [facility] (NA, K, CL, CO2, GLUCOSE, Medica l Branch BUN, CREATININE, CA) POCT GLUCOSE (AUTOMATED) 2022-02-07 16:07:00 lElie Farzadlizet [facility] POCT GLUCOSE (AUTOMATED) 2022-02-07 16:07:00 Edioncourt Kaylee Gazzang [facility] POCT GLUCOSE (AUTOMATED) 2022-02-07 15:04:00 Edionwe Kaylee Gazzang [facility] POCT GLUCOSE (AUTOMATED) 2022-02-07 15:04:00 Edioncourt Mitomicslizet Gazzang [facility] POCT GLUCOSE (AUTOMATED) 2022-02-07 13:57:00 Ellie Kaylee Gazzang [facility] POCT GLUCOSE (AUTOMATED) 2022-02-07 13:57:00 [facility] URINE CULTURE 2022-02-07 13:50:00 [facility] URINE CULTURE 2022-02-07 13:50:00 [facility] LACTIC ACID WHOLE BLOOD 2022-02-07 12:57:00 Ellie [facility] LACTIC ACID WHOLE BLOOD 2022-02-07 12:57:00 Ellie [facility] POCT GLUCOSE (AUTOMATED) 2022-02-07 12:55:00 Edkeri Mitomicslizet Gazzang [facility] POCT GLUCOSE (AUTOMATED) 2022-02-07 12:55:00 Edkeri Olark [facility] BASIC METABOLIC PANEL 2022-02-07 12:51:00 Ellie [facility] (NA, K, CL, CO2, GLUCOSE, Medica l Branch BUN, CREATININE, CA) BASIC METABOLIC PANEL 2022-02-07 12:51:00 Ellie [facility] (NA, K, CL, CO2, GLUCOSE, Medica l Branch BUN, CREATININE, CA) MRSA / MSSA SCREEN BY 2022-02-07 10:37:00 Ellie [facility] MRSA / MSSA SCREEN BY 2022-02-07 10:37:00 Ellie [facility] URINE DRUG (IMMUNOASSAY) 2022-02-07 10:36:00 Ellie [facility] DRUG [facility] SCREEN LACTIC ACID WHOLE BLOOD 2022-02-07 10:36:00 Edioncourt [facility] URINE DRUG (LCMSMS) - 2022-02-07 10:36:00 Edioncourt [facility] SYNTHETIC OPIATES PANEL [facility] LACTIC ACID WHOLE BLOOD 2022-02-07 10:36:00 Ellie [facility] URINE DRUG (IMMUNOASSAY) 2022-02-07 10:36:00 Ellie [facility] DRUG [facility] SCREEN URINE DRUG (LCMSMS) - 2022-02-07 10:36:00 Ellie [facility] OPIATES PANEL Medical Branch PHOSPHORUS 2022-02-07 08:58:00 [facility] 2022-02-07 08:58[facility]00 [facility] 2022-02-07 08:58:00 Carlene Alcantara [facility] BASIC METABOLIC PANEL 2022-02-07 08:58:00 [facility] (NA, K, CL, CO2, GLUCOSE, Medica l Branch BUN, CREATININE, CA) BETA HYDROXY-BUTYRATE 2022-02-07 08:58:00 Carlene Alcantara [facility] BASIC METABOLIC PANEL 2022-02-07 08:58:00 [facility] (NA, K, CL, CO2, GLUCOSE, Medica l Branch BUN, CREATININE, CA) MAGNESIUM 2022-02-07 08:58:00 [facility] 2022-02-07 08:58:00 Edioncourt, [facility] CBC WITH DIFF 2022-02-07 06:40:00 Ellie [facility] LACTIC ACID WHOLE BLOOD 2022-02-07 06:40:00 Ellie [facility] LACTIC ACID WHOLE BLOOD 2022-02-07 06:40:00 Ellie [facility] CBC WITH DIFF 2022-02-07 06:40:00 Ellie [facility] POCT GLUCOSE (AUTOMATED) 2022-02-07 05:14:00 Ellie [facility] POCT GLUCOSE (AUTOMATED) 2022-02-07 05:14:00 Ellie [facility] ED BLADDER 2022-02-07 04:35:00 Carlene Alcantara [facility] ED BLADDER 2022-02-07 04:35:00 Carlene Alcantara [facility] POCT GLUCOSE (AUTOMATED) 2022-02-07 03:51:00 Ellie [facility] POCT GLUCOSE (AUTOMATED) 2022-02-07 03:51:00 Ellie [facility] XR CHEST 1 VW 2022-02-07 02:43:07 Carlene Alcantara [facility] XR ANKLE 3+ VW LEFT 2022-02-07 02:43:07 Carlene Alcantara [facility] XR CHEST 1 VW 2022-02-07 02:43:07 Carlene Alcantara [facility] XR ANKLE 3+ VW LEFT 2022-02-07 02:43:07 Carlene Alcantara [facility] LACTIC ACID WHOLE BLOOD 2022-02-07 02:30:00 Carlene Alcantara [facility] LACTIC ACID WHOLE BLOOD 2022-02-07 02:30:00 Carlene Alcantara [facility] URINALYSIS 2022-02-07 01:38:00 Carlene Alcantara [facility] URINALYSIS 2022-02-07 01:38:00 Carlene Alcantara [facility] POCT GLUCOSE (AUTOMATED) 2022-02-07 01:36:00 Carlene Alcantara [facility] POCT GLUCOSE (AUTOMATED) 2022-02-07 01:36:00 Carlene Alcantara [facility] PHOSPHORUS 2022-02-07 01:24:00 Carlene Alcantara [facility] LIPASE 2022-02-07 01:24:00 Carlene Alcantara [facility] MAGNESIUM 2022-02-07 01:24:00 Carlene Alcantara [facility] TROPONIN I 2022-02-07 01:24:00 Carlene Alcantara [facility] COMP. METABOLIC PANEL 2022-02-07 01:24:00 Carlene Alcantara [facility] ([id number]) [facility] SALICYLATE 2022-02-07 01:24:00 Carlene Alcantara [facility] ETHANOL 2022-02-07 01:24:00 Carlene Alcantara [facility] COMP. METABOLIC PANEL 2022-02-07 01:24:00 Carlene Alcantara [facility] ([id number]) Medical Branch LIPASE 2022-02-07 01:24:00 Carlene Alcantara [facility] TROPONIN I 2022-02-07 01:24:00 Carlene Alcantara [facility] ETHANOL 2022-02-07 01:24:00 Carlene Alcantara [facility] ACETAMINOPHEN 2022-02-07 01:24:00 Carlene Alcantara [facility] PHOSPHORUS 2022-02-07 01:24:00 Carlene Alcantara [facility] MAGNESIUM 2022-02-07 01:24:00 Carlene Alcantara [facility] CT LUMBAR SPINE WO 2022-02-07 01:16:52 Carlene Alcantara [facility] CONTRAST [facility] CT THORACIC SPINE WO 2022-02-07 01:16:52 Carlene Alcantara [facility] CONTRAST [facility] CT THORACIC SPINE WO 2022-02-07 01:16:52 Carlene Alcantara [facility] ity [facility] CONTRAST Medical Branch CT LUMBAR SPINE WO 2022-02-07 01:16:52 [facility] [place] [facility] CT CERVICAL SPINE WO 2022-02-07 01:16:24 Carlene [facility] [place] CONTR[facility] Medical Branch CT HEAD WO CONTRAST 2022-02-07 01:16:24 Carlene Alcantara [facility] CT HEAD WO CONTRAST 2022-02-07 01:16:24 Carlene Alcantara [facility] CT CERVICAL SPINE WO 2022-02-07 01:16:24 Carlene Alcantara [facility] ity [facility] CONTRAST Medical Branch BLOOD CULTURE SCREEN 2022-02-07 00:41:00 Carlene Alcantara [facility] Medical Branch BLOOD CULTURE SCREEN 2022-02-07 00:41:00 Carlene Alcantara [facility] Medical Branch COVID-19 (ID NOW RAPID 2022-02-07 00:30:00 Carlene Alcantara [facility] TESTING) Medical Branch LAB ONLY COVID 2022-02-07 00:30:00 Carlene Alcantara [facility] INTERPRETATION Medical Branch COVID-19 (ID NOW RAPID 2022-02-07 00:30:00 Carlene Alcantara [facility] TESTING) Medical Branch LAB ONLY COVID 2022-02-07 00:30:00 Carlene Alcantara [facility] INTERPRETATION Medical Branch POCT GLUCOSE (AUTOMATED) 2022-02-07 00:05:00 Carlene Alcantara [facility] POCT GLUCOSE (AUTOMATED) 2022-02-07 00:05:00 Carlene Alcantara [facility] ACUTE CARE VENOUS BLOOD 2022-02-06 23:53:00 Carlene Alcantara [facility] GAS [facility] ACUTE CARE VENOUS BLOOD 2022-02-06 23:53:00 Carlene Alcantara [facility] GAS [facility] CBC WITH DIFF 2022-02-06 23:48:00 Carlene Alcantara [place] [facility] Medical Branch CBC WITH DIFF 2022-02-06 23:48:00 Carlene Alcantara [place] [facility] LACTIC ACID WHOLE BLOOD 2022-02-06 23:47:00 Carlene Alcantara [facility]ACT[facility] ACID WHOLE BLOOD 2022-02-06 23:47:00 Carlene Alcantara [facility] HB ECG ROUTINE & RHYTHM 2022-02-06 23:31:40 [facility]icruz [facility]OUT[facility] & RHYTHM 2022-02-06 23:31:40 Maricruz [facility] 2022-02-06 05:01:00 Doctor Unassigned, No [facility] [place] DOCUM[facility] EMERGENCY DEPARTMENT 2022-02-06 05:01:00 Doctor Unassigned, No [facility] [place] [facility]UM[facility] HOSPITAL ADMISSION 2022-02-06 05:01:00 Doctor Unassigned, No Uni versity of [facility] CT FEMUR LEFT W CONTRAST 2022-01-27 02:34:07 Sidney Sanford Uni versity of [facility] CT FEMUR LEFT W CONTRAST 2022-01-27 02:34:07 Sidney Sanford [facility] POCT GLUCOSE(AGE >30DAYS) 2022-01-27 01:30:00 Sidney Sanford iversity [facility] POCT GLUCOSE(AGE >30DAYS) 2022-01-27 01:30:00 Sidney Sanford iversity [facility] POCT GLUCOSE (AUTOMATED) 2022-01-27 01:28:00 [facility]SE ([facility]OMATED) 2022-01-27 01:28:00 Randall Sands [facility] POCT GLUCOSE (AUTOMATED) 2022-01-27 00:38:00 Randall Sands [facility] POCT GLUCOSE (AUTOMATED) 2022-01-27 00:38:00 Randall Sands [facility] URINALYSIS 2022-01-26 23:58:00 Randall Sands [facility] URINALYSIS 2022-01-26 23:58:00 Randall Sands [facility] POCT GLUCOSE (AUTOMATED) 2022-01-26 23:26:00 Randall Sands [facility] POCT GLUCOSE (AUTOMATED) 2022-01-26 23:26:00 Randall Sands [facility] BASIC METABOLIC PANEL 2022-01-26 22:24:00 Randall Sands [facility] (NA, K, CL, CO2, GLUCOSE, Medica l Branch BUN, CREATININE, CA) CBC WITH DIFF 2022-01-26 22:24:00 Randall Sands [facility] COVID-19 (ID NOW RAPID 2022-01-26 22:24:00 Randall Sands [facility] TESTING) Medical Branch CBC WITH DIFF 2022-01-26 22:24:00 Randall Sands [facility] BASIC METABOLIC PANEL 2022-01-26 22:24:00 Shavon Victoria [facility] (NA, K, CL, CO2, GLUCOSE, Medica l Branch BUN, CREATININE, CA) COVID-19 (ID NOW RAPID 2022-01-26 22:24:00 Randall Sands [facility] TESTING) Medical Branch LAB ONLY COVID 2022-01-26 22:24:00 Shavon [facility] INTERPRETATION [facility] EMERGENCY SERVICES 2022-01-26 05:01:00 Doctor Unassigned, No [facility] AGREEMENTS AND Name [facility] AUTHORIZATIONS EMERGENCY DEPARTMENT 2022-01-26 05:01:00 Doctor Unassigned, No [facility] DOCUMENTS Name Medical Branch LIPASE 2022-01-17 10:37:00 Jennifer Olivera [facility] COMP. METABOLIC PANEL 2022-01-17 10:37:00 Jennifer Olivera [facility] ([id number]) Medical Branch CBC WITH DIFF 2022-01-17 10:37:00 Jennifer Olivera [facility] AC PANEL 21 + LACTIC ACID 2022-01-17 10:37:00 Jennifer Olivera [facility] CBC WITH DIFF 2022-01-17 10:37:00 Jennifer Olivera [facility] COMP. METABOLIC PANEL 2022-01-17 10:37:00 Jennifer Olivera [facility] ([id number]) Medical Branch AC PANEL 21 + LACTIC ACID 2022-01-17 10:37:00 Jennifer Olivera Un iversity of [facility] LIPASE 2022-01-17 10:37:00 Jennifer Olivera [place] [facility] URINALYSIS 2022-01-17 10:24:00 Jennifer Olivera [facility] URINALYSIS 2022-01-17 10:24:00 Jennifer Olivera [facility] EMERGENCY SERVICES 2022-01-17 05:01:00 Doctor Unassigned, No [facility] [place] AGREEMENTS AND Name Medical Branch AUTHORIZATIONS POCT GLUCOSE (AUTOMATED) 2022-01-12 22:53:00 Jennifer Olivera [facility] vers[facility] POCT GLUCOSE (AUTOMATED) 2022-01-12 22:53:00 Jennifer Olivera [facility] vers[facility] POCT GLUCOSE (AUTOMATED) 2022-01-12 12:17:00 Jennifer Olivera Uni versity of [facility] POCT GLUCOSE (AUTOMATED) 2022-01-12 12:17:00 Jennifer Olivera [facility] of [facility] POCT GLUCOSE (AUTOMATED) 2022-01-12 04:47:00 Jennifer Olivera [facility] vers[facility] of [facility] POCT GLUCOSE (AUTOMATED) 2022-01-12 04:47:00 Jennifer Olivera [facility] POCT GLUCOSE (AUTOMATED) 2022-01-12 01:43:00 Jennifer Olivera [facility] of [facility] POCT GLUCOSE (AUTOMATED) 2022-01-12 01:43:00 Jennifer Olivera [facility] vers[facility] of [facility] POCT GLUCOSE (AUTOMATED) 2022-01-11 21:51:00 Jennifer Olivera [facility] vers[facility] of [facility] POCT GLUCOSE (AUTOMATED) 2022-01-11 21:51:00 Jennifer Olivera [facility] [place] [facility] POCT GLUCOSE (AUTOMATED) 2022-01-11 17:04:00 Jennifer Olivera [facility] of [facility] POCT GLUCOSE (AUTOMATED) 2022-01-11 17:04:00 Jennifer Olivera Uni vers[facility] of [facility] POCT GLUCOSE (AUTOMATED) 2022-01-11 13:09:00 Jennifer Olivera versity of [facility] POCT GLUCOSE (AUTOMATED) 2022-01-11 13:09:00 Jennifer Olivera versity of [facility] POCT GLUCOSE (AUTOMATED) 2022-01-11 08:32:00 Jennifer Olivera versity of [facility] POCT GLUCOSE (AUTOMATED) 2022-01-11 08:32:00 Jennifer Olivera versity of [facility] POCT GLUCOSE (AUTOMATED) 2022-01-11 05:45:00 Jennifer Olivera versity of [facility] POCT GLUCOSE (AUTOMATED) 2022-01-11 05:45:00 Jennifer Olivera versity of [facility] POCT GLUCOSE (AUTOMATED) 2022-01-11 02:43:00 Jennifer Olivera versity of [facility] POCT GLUCOSE (AUTOMATED) 2022-01-11 02:43:00 Jennifer Olivera versity of [facility] POCT GLUCOSE (AUTOMATED) 2022-01-10 22:37:00 Jennifer Olivera versity of [facility] POCT GLUCOSE (AUTOMATED) 2022-01-10 22:37:00 Jennifer Olivera versity of [facility] POCT GLUCOSE (AUTOMATED) 2022-01-10 18:04:00 Jennifer Olivera versity of [facility] POCT GLUCOSE (AUTOMATED) 2022-01-10 18:04:00 Jennifer Olivera versity of [facility] BASIC METABOLIC PANEL 2022-01-10 14:22:00 [facility] (NA, K, CL, CO2, GLUCOSE, Medica l Branch BUN, CREATININE, CA) BASIC METABOLIC PANEL 2022-01-10 14:22:00 [facility] (NA, K, CL, CO2, GLUCOSE, Medica l Branch BUN, CREATININE, CA) POCT GLUCOSE (AUTOMATED) 2022-01-10 13:30:00 Jennifer Olivera versity of [facility] POCT GLUCOSE (AUTOMATED) 2022-01-10 13:30:00 Jennifer Olivera versity of [facility] CRITICAL CARE 2022-01-10 11:11:00 Jennifer Olivera o [facility] CRITICAL CARE 2022-01-10 11:11:00 Jennifer Olivera [facility] POCT GLUCOSE (AUTOMATED) 2022-01-10 11:01:00 Jennifer Olivera [facility] POCT GLUCOSE (AUTOMATED) 2022-01-10 11:01:00 Jennifer Olivera [facility] POCT GLUCOSE (AUTOMATED) 2022-01-10 07:19:00 Jennifer Olivera [facility] POCT GLUCOSE (AUTOMATED) 2022-01-10 07:19:00 Jennifer Olivera [facility] BASIC METABOLIC PANEL 2022-01-10 05:53:00 Jennifer Olivera [facility] (NA, K, CL, CO2, GLUCOSE, Medica l Branch BUN, CREATININE, CA) BASIC METABOLIC PANEL 2022-01-10 05:53:00 Jennifer Olivera [facility] (NA, K, CL, CO2, GLUCOSE, Medica l Branch BUN, CREATININE, CA) POCT GLUCOSE (AUTOMATED) 2022-01-10 04:41:00 Jennifer Olivera [facility] POCT GLUCOSE (AUTOMATED) 2022-01-10 04:41:00 Jennifer Olivera [facility] URINALYSIS 2022-01-10 03:59:00 Jennifer Olivera [facility] URINE CULTURE 2022-01-10 03:59:00 Jennifer Olivera [facility] URINALYSIS 2022-01-10 03:59:00 Jennifer Olivera [facility] URINE CULTURE 2022-01-10 03:59:00 Jennifer Olivera [facility] POCT GLUCOSE (AUTOMATED) 2022-01-10 03:48:00 Jennifer Olivera [facility] POCT GLUCOSE (AUTOMATED) 2022-01-10 03:48:00 Jennifer Olivera [facility] AC PANEL 21 + LACTIC ACID 2022-01-10 02:23:00 Jennifer Olivera [facility] AC PANEL 21 + LACTIC ACID 2022-01-10 02:23:00 [facility] 2022-01-10 02:22:00 Jennifer Olivera [facility] COMP. METABOLIC PANEL 2022-01-10 02:22:00 Jennifer Olivera [facility] ([id number]) Medical Branch CBC WITH DIFF 2022-01-10 02:22:00 Jennifer Olivera [facility] COVID-19 (ID NOW RAPID 2022-01-10 02:22:00 Jennifer Olivera [facility] TESTING) Medical Branch LAB ONLY COVID 2022-01-10 02:22:00 Jennifer Olivera [facility] INTERPRETATION Medical Branch CBC WITH DIFF 2022-01-10 02:22:00 Jarod Jennifer [facility] COMP. METABOLIC PANEL 2022-01-10 02:22:00 Jennifer Olivera [facility] ([id number]) Medical Branch LIPASE 2022-01-10 02:22:00 Jennifer Olivera [facility] COVID-19 (ID NOW RAPID 2022-01-10 02:22:00 Jennifer Olivera [facility] TESTING) Medical Branch LAB ONLY COVID 2022-01-10 02:22:00 Jennifer Olivera [facility] HOSPITAL ADMISSION 2022-01-09 05:01:00 Doctor Unassigned, No Uni versity of [facility] EMERGENCY DEPARTMENT 2022-01-09 05:01:00 Doctor Unassigned, No [facility] HOSPITAL ADMISSION 2022-01-09 05:01:00 Doctor Unassigned, No Uni versity of [facility] POCT GLUCOSE (AUTOMATED) 2022-01-06 17:03:00 Negar Guardado Uni versity of [facility] POCT GLUCOSE (AUTOMATED) 2022-01-06 16:09:00 Negar Guardado Uni versity of [facility] HEPATIC FUNCTION PANEL 2022-01-06 09:01:00 [id number] (ALB,T.PRO,BILI Medical Branch T,BU/BC,ALT,AST,ALK PHOS) BASIC METABOLIC PANEL 2022-01-06 09:01:00 [facility] (NA, K, CL, CO2, GLUCOSE, Medica l Branch BUN, CREATININE, CA) CBC WITH DIFF 2022-01-06 09:01:00 Carlene Weaver [facility] CBC WITH DIFF 2022-01-06 09:01:00 Carlene Weaver [facility] BASIC METABOLIC PANEL 2022-01-06 09:01:00 Carlene Weaver [facility] (NA, K, CL, CO2, GLUCOSE, Medica l Branch BUN, CREATININE, CA) HEPATIC FUNCTION PANEL 2022-01-06 09:01:00 Carlene Weaver [facility] ([id number]) (ALB,T.PRO,BILI Medical Branch T,BU/BC,ALT,AST,ALK PHOS) POCT GLUCOSE (AUTOMATED) 2022-01-06 08:58:00 Negar Guardado [facility] POCT GLUCOSE (AUTOMATED) 2022-01-06 06:53:00 Negar Guardado [facility] POCT GLUCOSE (AUTOMATED) 2022-01-06 05:31:00 Negar Guardado [facility] POCT GLUCOSE (AUTOMATED) 2022-01-06 02:16:00 Negar Guardado [facility] POCT GLUCOSE (AUTOMATED) 2022-01-05 21:50:00 Negar Guardado [facility] BASIC METABOLIC PANEL 2022-01-05 20:45:00 [facility] (NA, K, CL, CO2, GLUCOSE, Medica l Branch BUN, CREATININE, CA) CBC WITH DIFF 2022-01-05 20:45:00 [facility] BASIC METABOLIC PANEL 2022-01-05 20:45:00 [facility] (NA, K, CL, CO2, GLUCOSE, Medica l Branch BUN, CREATININE, CA) CBC WITH DIFF 2022-01-05 20:45[facility]) 2022-01-05 16:44:00 Negar Guardado [facility] POCT GLUCOSE (AUTOMATED) 2022-01-05 13:41:00 Negar Guardado [facility] URINE CULTURE 2022-01-05 06:41:00 Vadim Ferreira [facility] URINE CULTURE 2022-01-05 06:41:00 Vadim Ferreira [facility] POCT GLUCOSE (AUTOMATED) 2022-01-05 06:10:00 Vadim Ferreira [facility] CT ABDOMEN PELVIS W 2022-01-05 05:08:00 Vadim Ferreira [facility] CONTRAST [facility] CT ABDOMEN PELVIS W 2022-01-05 05:08:00 Vadim Ferreira [facility] CONTRAST [facility] URINALYSIS 2022-01-05 04:34:00 Vadim Ferreira [facility] COVID-19 (ID NOW RAPID 2022-01-05 04:34:00 Vadim Ferreira [facility] TESTING) Medical Branch LAB ONLY COVID 2022-01-05 04:34:00 Vadim Ferreira [facility] INTERPRETATION [facility] URINALYSIS 2022-01-05 04:34:00 Vadim Ferreira [facility] COVID-19 (ID NOW RAPID 2022-01-05 04:34:00 Vadim Ferreira [facility] TESTING) Medical Branch LAB ONLY COVID 2022-01-05 04:34:00 Vadim Ferreira [facility] INTERPRETATION [facility] LIPASE 2022-01-05 03:57:00 Vadim Ferreira [facility] COMP. METABOLIC PANEL 2022-01-05 03:57:00 [facility] ([id number]) [facility] CBC WITH DIFF 2022-01-05 03:57:00 Vadim Ferreira [facility] CBC WITH DIFF 2022-01-05 03:57:00 Vadim Ferreira [facility] COMP. METABOLIC PANEL 2022-01-05 03:57:00 [facility] ([id number]) [facility] LIPASE 2022-01-05 03:57:00 Vadim Ferreira [facility] EMERGENCY DEPARTMENT 2022-01-04 05:01:00 Doctor Unassigned, No [facility] DOCUMENTS Name [facility] HOSPITAL ADMISSION 2022-01-04 05:01:00 Doctor Unassigned, No Uni versity of [facility] POCT GLUCOSE (AUTOMATED) 2021-12-22 21:48:00 EdkeriKaylee Uni versity of [facility] POCT GLUCOSE (AUTOMATED) 2021-12-22 17:03:00 Edkeri, Farzady Uni versity of [facility] POCT GLUCOSE (AUTOMATED) 2021-12-22 17:03:00 Edioncourt Farzady Uni versity of [facility] POCT GLUCOSE (AUTOMATED) 2021-12-22 12:44:00 Edionwe, Mercy Uni versity of [facility] POCT GLUCOSE (AUTOMATED) 2021-12-22 12:44:00 Edkeri, Kaylee Uni versity of [facility] BASIC METABOLIC PANEL 2021-12-22 10:29:00 Negar Guardado [facility] (NA, K, CL, CO2, GLUCOSE, Medica l Branch BUN, CREATININE, CA) CBC WITH DIFF 2021-12-22 10:29:00 Geo [facility] MAGNESIUM 2021-12-22 10:29:00 Geo [facility] MAGNESIUM 2021-12-22 10:29:00 eGo [facility] BASIC METABOLIC PANEL 2021-12-22 10:29:00 Negar Guardado [facility] (NA, K, CL, CO2, GLUCOSE, Medica l Branch BUN, CREATININE, CA) CBC WITH DIFF 2021-12-22 10:29:00 Geo [facility] POCT GLUCOSE (AUTOMATED) 2021-12-22 10:28:00 Edkeri Farzadlizet Uni versity of [facility] POCT GLUCOSE (AUTOMATED) 2021-12-22 10:28:00 Edkeri Farzady Uni versity of [facility] POCT GLUCOSE (AUTOMATED) 2021-12-22 05:33:00 Edkeri Farzady Uni versity of [facility] POCT GLUCOSE (AUTOMATED) 2021-12-22 05:33:00 Edionwe, [facility] Uni versity of [facility] POCT GLUCOSE (AUTOMATED) 2021-12-22 04:37:00 Edionwe, Farzady Uni versity of [facility] POCT GLUCOSE (AUTOMATED) 2021-12-22 04:37:00 EdkeriFarzady Uni versity of [facility] POCT GLUCOSE (AUTOMATED) 2021-12-22 02:29:00 Edkeri [facility] [place] [facility] POCT GLUCOSE (AUTOMATED) 2021-12-22 02:29:00 EdkeriFarzady [facility] [place] [facility] POCT GLUCOSE (AUTOMATED) 2021-12-22 00:52:00 Edioncourt [facility] [place] [facility] POCT GLUCOSE (AUTOMATED) 2021-12-22 00:52:00 Edioncourt, [facility] Uni versity of [facility] POCT GLUCOSE (AUTOMATED) 2021-12-21 21:52:00 Edkeri [facility] Uni versity of [facility] POCT GLUCOSE (AUTOMATED) 2021-12-21 21:52:00 Edkeri Farzady Uni versity of [facility] POCT GLUCOSE (AUTOMATED) 2021-12-21 16:42:00 Edioncourt Farzady Uni versity of [facility] POCT GLUCOSE (AUTOMATED) 2021-12-21 16:42:00 Edkeri Farzady Uni versity of [facility] XR CHEST 1 VW 2021-12-21 14:05:00 Negar Guardado [facility] XR SKULL <4 VW 2021-12-21 14:05:00 Geo [facility] XR ABDOMEN 2 VW 2021-12-21 14:05:00 Negar Guardado [facility] XR ABDOMEN 2 VW 2021-12-21 14:05:00 Negar Guardado [facility] XR CHEST 1 VW 2021-12-21 14:05:00 Geo [facility] XR SKULL <4 VW 2021-12-21 14:05:00 Negar Guardado [facility] POCT GLUCOSE (AUTOMATED) 2021-12-21 12:47:00 Edkeri, Farzady Uni versity of [facility] POCT GLUCOSE (AUTOMATED) 2021-12-21 12:47:00 Edkeri, [facility] Uni versity of [facility] POCT GLUCOSE (AUTOMATED) 2021-12-21 08:59:00 Edkeri [facility] [place] [facility] POCT GLUCOSE (AUTOMATED) 2021-12-21 08:59:00 Kaylee [facility] GLYCOSYLATED HEMOGLOBIN 2021-12-21 08:56:00 Severino Beth [facility] (A1C) Medical [place] CBC WITH DIFF 2021-12-21 08:56:00 Kirit [facility] BASIC METABOLIC PANEL 2021-12-21 08:56:00 Severino Beth [facility] (NA, K, CL, CO2, GLUCOSE, Medica l Branch BUN, CREATININE, CA) MAGNESIUM 2021-12-21 08:56:00 [facility] PHOSPHORUS 2021-12-21 08:56:00 [facility] PHOSPHORUS 2021-12-21 08:56:00 [facility] MAGNESIUM 2021-12-21 08:56:00 [facility] BASIC METABOLIC PANEL 2021-12-21 08:56:00 Severino Beth [facility] (NA, K, CL, CO2, GLUCOSE, Medica l Branch BUN, CREATININE, CA) CBC WITH DIFF 2021-12-21 08:56:00 [facility] GLYCOSYLATED HEMOGLOBIN 2021-12-21 08:56:00 [facility] POCT GLUCOSE (AUTOMATED) 2021-12-21 04:27:00 Kaylee [facility] PO[facility] GLUCOSE (AUTOMATED) 2021-12-21 04:27:00 Kaylee Argueta [facility] POCT GLUCOSE (AUTOMATED) 2021-12-21 01:11:00 Kaylee Argueta Uni versity [facility] POCT GLUCOSE (AUTOMATED) 2021-12-21 01:11:00 Kaylee Argueta Uni versity [facility] POCT GLUCOSE (AUTOMATED) 2021-12-20 21:02:00 EdKaylee saavedra Uni versity [facility] POCT GLUCOSE (AUTOMATED) 2021-12-20 21:02:00 Kaylee Argueta Uni [facility] POCT GLUCOSE (AUTOMATED) 2021-12-20 16:08:00 Edioncourt Kaylee [facility] POCT GLUCOSE (AUTOMATED) 2021-12-20 16:08:00 EdkeriKaylee Gazzang [facility] POCT GLUCOSE (AUTOMATED) 2021-12-20 12:39:00 [facility] POCT GLUCOSE (AUTOMATED) 2021-12-20 12:39:00 [facility] LACTIC ACID WHOLE BLOOD 2021-12-20 09:25:00 Alex [facility] CBC WITH DIFF 2021-12-20 09:25:00 Ellie [facility] BASIC METABOLIC PANEL 2021-12-20 09:25:00 [facility] (NA, K, CL, CO2, GLUCOSE, Medica l Branch BUN, CREATININE, CA) BASIC METABOLIC PANEL 2021-12-20 09:25:00 [facility] (NA, K, CL, CO2, GLUCOSE, Medica l Branch BUN, CREATININE, CA) CBC WITH DIFF 2021-12-20 09:25:00 Ellie [facility] LACTIC ACID WHOLE BLOOD 2021-12-20 09:25:00 Alex [facility] POCT GLUCOSE (AUTOMATED) 2021-12-20 08:56:00 Ellie Kaylee Gazzang [facility] POCT GLUCOSE (AUTOMATED) 2021-12-20 08:56:00 [facility] POCT GLUCOSE (AUTOMATED) 2021-12-20 04:51:00 [facility] POCT GLUCOSE (AUTOMATED) 2021-12-20 04:51:00 Ellie [facility] URINALYSIS 2021-12-20 02:47:[address] [facility] URINALYSIS 2021-12-20 02:47:[address] [facility] POCT GLUCOSE (AUTOMATED) 2021-12-20 02:29:00 [facility] ([facility]OMATED) 2021-12-20 02:29:00 Mario Johnson [facility] HB ECG ROUTINE & RHYTHM 2021-12-20 00:33:38 Alex [facility] HB ECG ROUTINE & RHYTHM 2021-12-20 00:33:38 Alex [facility] URINALYSIS 2021-12-20 00:28:[address] [facility] URINE CULTURE 2021-12-20 00:28:[address] [facility] URINALYSIS 2021-12-20 00:28:[address] [facility] URINE CULTURE 2021-12-20 00:28:[address] [facility] CBC WITH DIFF 2021-12-20 00:25:[address] [facility] COMP. METABOLIC PANEL 2021-12-20 00:25:00 Mario Johnson [facility] ([id number]) Medical Branch LIPASE 2021-12-20 00:25:[address] [facility] LACTIC ACID WHOLE BLOOD 2021-12-20 00:25:00 Alex [facility] ACUTE CARE VENOUS BLOOD 2021-12-20 00:25:00 Alex [facility] BLOOD CULTURE SCREEN 2021-12-20 00:25:00 Mario Johnson [facility] BLOOD CULTURE SCREEN 2021-12-20 00:25:00 Mario Johnson [facility] LIPASE 2021-12-20 00:25:[address] [facility] COMP. METABOLIC PANEL 2021-12-20 00:25:00 Mario Johnson [facility] ([id number]) [facility] ACUTE CARE VENOUS BLOOD 2021-12-20 00:25:00 Alex [facility] CBC WITH DIFF 2021-12-20 00:25:00 Vincent, Shinta [facility] LACTIC ACID WHOLE BLOOD 2021-12-20 00:25:00 Mario Johnson [facility] EMERGENCY DEPARTMENT 2021-12-19 05:01:00 Doctor Unassigned, No [facility] [place] [facility] HOSPITAL ADMISSION 2021-12-19 05:01:00 Doctor Unassigned, No Uni vers[facility] CBC WITH DIFF 2021-12-18 17:57:00 Mayank [facility] BASIC METABOLIC PANEL 2021-12-18 17:57:00 [facility] ([facility], K, CL, CO2, GLUCOSE, Medica l Branch BUN, CREATININE, CA) MAGNESIUM 2021-12-18 17:57:00 Talley, [facility] MAGNESIUM 2021-12-18 17:57[facility] 2021-12-18 17:57:[address] [facility] (NA, K, CL, CO2, GLUCOSE, Medica l Branch BUN, CREATININE, CA) CBC WITH DIFF 2021-12-18 17:57:00 Mayank [facility] POCT GLUCOSE (AUTOMATED) 2021-12-18 16:49:00 Terminella, Thomas [facility] POCT GLUCOSE (AUTOMATED) 2021-12-18 16:49:00 Terminella, Thomas [facility] POCT GLUCOSE (AUTOMATED) 2021-12-18 12:56:00 Terminella, Thomas [facility] POCT GLUCOSE (AUTOMATED) 2021-12-18 12:56:00 Terminella, Thomas [facility] POCT GLUCOSE (AUTOMATED) 2021-12-18 09:41:00 Terminella, Thomas [facility] POCT GLUCOSE (AUTOMATED) 2021-12-18 09:41:00 Terminella, Thomas [facility] POCT GLUCOSE (AUTOMATED) 2021-12-18 05:08:00 Terminella, Thomas [facility] [place] [facility] POCT GLUCOSE (AUTOMATED) 2021-12-18 05:08:00 Terminella, Thomas [facility] [place] [facility] POCT GLUCOSE (AUTOMATED) 2021-12-18 01:26:00 Terminella, Thomas [facility] [place] [facility] POCT GLUCOSE (AUTOMATED) 2021-12-18 01:26:00 Terminella, Thomas [facility] POCT GLUCOSE (AUTOMATED) 2021-12-17 21:41:00 Terminella, Thomas [facility] [place] [facility] POCT GLUCOSE (AUTOMATED) 2021-12-17 21:41:00 Terminella, Thomas [facility] POCT GLUCOSE (AUTOMATED) 2021-12-17 17:07:00 Terminella, Thomas [facility] POCT GLUCOSE (AUTOMATED) 2021-12-17 17:07:00 Terminella, Thomas [facility] POCT GLUCOSE (AUTOMATED) 2021-12-17 14:01:00 Terminella, Thomas [facility] POCT GLUCOSE (AUTOMATED) 2021-12-17 14:01:00 Terminella, Thomas [facility] POCT GLUCOSE (AUTOMATED) 2021-12-17 09:18:00 Terminella, Thomas [facility] POCT GLUCOSE (AUTOMATED) 2021-12-17 09:18:00 Terminella, Thomas [facility] POCT GLUCOSE (AUTOMATED) 2021-12-17 01:43:00 Terminella, Thomas [facility] [place] [facility] POCT GLUCOSE (AUTOMATED) 2021-12-17 01:43:00 Terminella, Thomas [facility] POCT GLUCOSE (AUTOMATED) 2021-12-16 21:24:00 Albustami, Vito Uni versity of [facility] POCT GLUCOSE (AUTOMATED) 2021-12-16 21:24:00 Albustami, Vito Uni versity of [facility] POCT GLUCOSE (AUTOMATED) 2021-12-16 16:25:00 Albustami, Vito Uni versity of [facility] POCT GLUCOSE (AUTOMATED) 2021-12-16 16:25:00 AlbVito cuenca Uni [facility] URINALYSIS 2021-12-16 15:46:00 Mayank [facility] URINE CULTURE 2021-12-16 15:46:00 Mayank [facility] URINALYSIS 2021-12-16 15:46:00 Mayank [facility] URINE CULTURE 2021-12-16 15:46:00 Mayank [facility] POCT GLUCOSE (AUTOMATED) 2021-12-16 15:36:00 AlbVito cuenca [facility] versity [facility] POCT GLUCOSE (AUTOMATED) 2021-12-16 15:36:00 AlbVito cuenca [facility] ([facility]OMATED) 2021-12-16 14:25:00 AlbVito cuenca [facility] PO[facility] GLUCOSE (AUTOMATED) 2021-12-16 14:25:00 AlbVito cuenca Uni [facility] BASIC METABOLIC PANEL 2021-12-16 13:45:00 [facility] (NA, K, CL, CO2, GLUCOSE, Medica l Branch BUN, CREATININE, CA) BASIC METABOLIC PANEL 2021-12-16 13:45:00 Albbessyami, Vito [facility] (NA, K, CL, CO2, GLUCOSE, Medica l Branch BUN, CREATININE, CA) POCT GLUCOSE (AUTOMATED) 2021-12-16 13:34:00 AlbVito cuenca [facility] PO[facility] GLUCOSE (AUTOMATED) 2021-12-16 13:34:00 AlbbessyamiVito Uni [facility] CRITICAL CARE 2021-12-16 13:05:05 Jennifer Olivera [facility] CRITICAL CARE 2021-12-16 13:05:05 Jarod [facility] POCT GLUCOSE (AUTOMATED) 2021-12-16 12:23:00 AlbVito cuenca [facility] PO[facility] GLUCOSE (AUTOMATED) 2021-12-16 12:23:00 AlbbessyamiVito [facility] [place] [facility] POCT GLUCOSE (AUTOMATED) 2021-12-16 11:24:00 AlbVito cuenca Uni versity of [facility] POCT GLUCOSE (AUTOMATED) 2021-12-16 11:24:00 AlbVito cuenca Uni versity of [facility] POCT GLUCOSE (AUTOMATED) 2021-12-16 10:33:00 AlbVito cuenca Uni versity of [facility] POCT GLUCOSE (AUTOMATED) 2021-12-16 10:33:00 AlbVito cuenca Uni versity of [facility] BASIC METABOLIC PANEL 2021-12-16 09:32:00 AlbVito cuenca [facility] (NA, K, CL, CO2, GLUCOSE, Medica l Branch BUN, CREATININE, CA) BASIC METABOLIC PANEL 2021-12-16 09:32:00 AlbVito cuenca [facility] (NA, K, CL, CO2, GLUCOSE, Medica l Branch BUN, CREATININE, CA) POCT GLUCOSE (AUTOMATED) 2021-12-16 09:30:00 AlbVito cuenca Uni versity of [facility] POCT GLUCOSE (AUTOMATED) 2021-12-16 09:30:00 AlbustamiVito Uni versity of [facility] POCT GLUCOSE (AUTOMATED) 2021-12-16 08:27:00 AlbustamiVito Uni versity of [facility] POCT GLUCOSE (AUTOMATED) 2021-12-16 08:27:00 AlbustamiVito Uni versity of [facility] POCT GLUCOSE (AUTOMATED) 2021-12-16 07:23:00 AlbustamiVito Uni versity of [facility] POCT GLUCOSE (AUTOMATED) 2021-12-16 07:23:00 AlbustamiVito Uni versity of [facility] POCT GLUCOSE (AUTOMATED) 2021-12-16 06:22:00 AlbustamiVito Uni versity of [facility] POCT GLUCOSE (AUTOMATED) 2021-12-16 06:22:00 AlbustamiVito Uni versity of [facility] BASIC METABOLIC PANEL 2021-12-16 05:30:00 AlbVito cuenca [facility] (NA, K, CL, CO2, GLUCOSE, Medica l Branch BUN, CREATININE, CA) BASIC METABOLIC PANEL 2021-12-16 05:30:00 [facility] (NA, K, CL, CO2, GLUCOSE, Medica l Branch BUN, CREATININE, CA) POCT GLUCOSE (AUTOMATED) 2021-12-16 05:27:00 AlbbessyVito louise [facility] POCT GLUCOSE (AUTOMATED) 2021-12-16 05:27:00 Albbessyami, [facility] POCT GLUCOSE (AUTOMATED) 2021-12-16 04:23:00 Albustami [facility] POCT GLUCOSE (AUTOMATED) 2021-12-16 04:23:00 Albustami, [facility] POCT GLUCOSE (AUTOMATED) 2021-12-16 03:19:00 Albbessydani [facility] POCT GLUCOSE (AUTOMATED) 2021-12-16 03:19:00 Albjoellen [facility] POCT GLUCOSE (AUTOMATED) 2021-12-16 02:24:00 Albf[facility] POCT GLUCOSE (AUTOMATED) 2021-12-16 02:24:00 [facility] KETONES URINE 2021-12-16 01:49:00 [facility] KETONES URINE 2021-12-16 01:49:00 [facility] BETA HYDROXY-BUTYRATE 2021-12-16 01:44:00 Talley [facility] BASIC METABOLIC PANEL 2021-12-16 01:44:00 [facility] (NA, K, CL, CO2, GLUCOSE, Medica l Branch BUN, CREATININE, CA) BETA HYDROXY-BUTYRATE 2021-12-16 01:44:00 Talley, [facility] BASIC METABOLIC PANEL 2021-12-16 01:44:00 [facility] (NA, K, CL, CO2, GLUCOSE, Medica l Branch BUN, CREATININE, CA) POCT GLUCOSE (AUTOMATED) 2021-12-16 01:24:00 Vito Mckeon Lauren versity [facility] POCT GLUCOSE (AUTOMATED) 2021-12-16 01:24:00 Vito Mckeon Lauren versity of [facility] POCT GLUCOSE (AUTOMATED) 2021-12-16 00:18:00 AlbVito cuenca Lauren versity of [facility] POCT GLUCOSE (AUTOMATED) 2021-12-16 00:18:00 Vito Mckeon Lauren versity [facility] POCT GLUCOSE (AUTOMATED) 2021-12-15 22:56:00 AlbVito cuenca Lauren versity [facility] POCT GLUCOSE (AUTOMATED) 2021-12-15 22:56:00 Vito Mckeon [facility] BASIC METABOLIC PANEL 2021-12-15 22:03:00 Vito Mckeon [facility] (NA, K, CL, CO2, GLUCOSE, Medica l Branch BUN, CREATININE, CA) BASIC METABOLIC PANEL 2021-12-15 22:03:00 Rosalind Vito [facility] (NA, K, CL, CO2, GLUCOSE, Medica l Branch BUN, CREATININE, CA) POCT GLUCOSE (AUTOMATED) 2021-12-15 21:50:00 Vito Mckeon Lauren versity [facility] POCT GLUCOSE (AUTOMATED) 2021-12-15 21:50:00 Vito Mckeon Lauren versity [facility] POCT GLUCOSE (AUTOMATED) 2021-12-15 20:39:00 Vito Mckeon Lauren versity [facility] POCT GLUCOSE (AUTOMATED) 2021-12-15 20:39:00 AlbVito cuenca Uni versity [facility] POCT GLUCOSE (AUTOMATED) 2021-12-15 18:58:00 AlbVito cuenca Uni versity of [facility] POCT GLUCOSE (AUTOMATED) 2021-12-15 18:58:00 AlbVito cuenca [facility] BASIC METABOLIC PANEL 2021-12-15 17:46:00 Rosalind Vito [facility] (NA, K, CL, CO2, GLUCOSE, Medica l Branch BUN, CREATININE, CA) BASIC METABOLIC PANEL 2021-12-15 17:46:00 Vito Mckeon [facility] (NA, K, CL, CO2, GLUCOSE, Medica l Branch BUN, CREATININE, CA) POCT GLUCOSE (AUTOMATED) 2021-12-15 17:39:00 Vito Mckeon [facility] POCT GLUCOSE (AUTOMATED) 2021-12-15 17:39:00 Vito Mckeon [facility] POCT GLUCOSE (AUTOMATED) 2021-12-15 16:22:00 Albjoellen Vito [facility] POCT GLUCOSE (AUTOMATED) 2021-12-15 16:22:00 Albjoellen Vito [facility] POCT GLUCOSE (AUTOMATED) 2021-12-15 15:27:00 Rosalind Vito [facility] POCT GLUCOSE (AUTOMATED) 2021-12-15 15:27:00 Rosalind Vito [facility] POCT GLUCOSE (AUTOMATED) 2021-12-15 14:17:00 Albjoellen Vito [facility] POCT GLUCOSE (AUTOMATED) 2021-12-15 14:17:00 Rosalind [facility] CBC WITHOUT DIFF 2021-12-15 13:33:00 [facility] CBC WITHOUT DIFF 2021-12-15 13:33:00 [facility] POCT GLUCOSE (AUTOMATED) 2021-12-15 13:20:00 Vito Mckeon [facility] POCT GLUCOSE (AUTOMATED) 2021-12-15 13:20:00 Albjoellen Vito [facility] POCT GLUCOSE (AUTOMATED) 2021-12-15 12:13:00 Albjoellen Vito [facility] POCT GLUCOSE (AUTOMATED) 2021-12-15 12:13:00 Albjoellen Vito [facility] XR CHEST 1 VW 2021-12-15 11:46:06 Rosalind [facility] XR CHEST 1 VW 2021-12-15 11:46:06 Albjoellen [facility] MAGNESIUM 2021-12-15 10:54[facility]00 [facility] BY 2021-12-15 10:54:00 Albustami, [facility] [place] BASIC METABOLIC PANEL 2021-12-15 10:54:00 [facility] (NA, K, CL, CO2, GLUCOSE, Medica l Branch BUN, CREATININE, CA) OSMOLALITY, SERUM OR 2021-12-15 10:54:00 [facility] 2021-12-15 10:54:00 [facility] BETA HYDROXY-BUTYRATE 2021-12-15 10:54:00 Albustami, [facility] PHOSPHORUS 2021-12-15 10:54:00 [facility], [facility] MAGNESIUM 2021-12-15 10:54:00 [facility], [facility] OSMOLALITY, SERUM OR 2021-12-15 10:54:00 [facility] BET[facility] HYDROXY-BUTYRATE 2021-12-15 10:54:00 Albustami, [facility] BASIC METABOLIC PANEL 2021-12-15 10:54:00 [facility], [facility] (NA, K, CL, CO2, GLUCOSE, Medica l Branch BUN, CREATININE, CA) MRSA / MSSA SCREEN BY 2021-12-15 10:54:00 Albustami [facility] [place] POCT GLUCOSE (AUTOMATED) 2021-12-15 10:53:00 Albjoellen Vito [facility] POCT GLUCOSE (AUTOMATED) 2021-12-15 10:53:00 Albbessyami Vito [facility] POCT GLUCOSE (AUTOMATED) 2021-12-15 08:46:00 Jennifer Olivera [facility] POCT GLUCOSE (AUTOMATED) 2021-12-15 08:46:00 Jennifer Olivera [facility] POCT GLUCOSE (AUTOMATED) 2021-12-15 07:39:00 Jennifer Olivera [facility] POCT GLUCOSE (AUTOMATED) 2021-12-15 07:39:00 [facility] POCT GLUCOSE (AUTOMATED) 2021-12-15 07:02:00 Jennifer [facility] PO[facility] GLUCOSE (AUTOMATED) 2021-12-15 07:02:00 Jennifer [facility] PO[facility] GLUCOSE (AUTOMATED) 2021-12-15 06:17:00 Jennifer [facility] PO[facility] GLUCOSE (AUTOMATED) 2021-12-15 06:17:00 Jennifer Olivera [facility] AC PANEL 21 + LACTIC ACID 2021-12-15 05:36:00 Jennifer Olivera [facility] AC PANEL 21 + LACTIC ACID 2021-12-15 05:36:00 Jennifer Olivera [facility] POCT GLUCOSE (AUTOMATED) 2021-12-15 04:58:00 Jennifer Olivera Lauren [facility] POCT GLUCOSE (AUTOMATED) 2021-12-15 04:58:00 Jennifer Olivera [facility] CT ABDOMEN PELVIS W 2021-12-15 04:33:00 Jennifer Olivera [facility] CONTRAST [facility] CT ABDOMEN PELVIS W 2021-12-15 04:33:00 Jennifer Olivera [facility] CONTRAST [facility] COMP. METABOLIC PANEL 2021-12-15 04:20:00 Jennifer Olivera [facility] ([id number]) Medical Branch COMP. METABOLIC PANEL 2021-12-15 04:20:00 Jennifer Olivera [facility] ([id number]) [facility] CBC WITH DIFF 2021-12-15 03:14:00 Jennifer Olivera [facility] BLOOD CULTURE SCREEN 2021-12-15 03:14:00 Jennifer Olivera [facility] BLOOD CULTURE SCREEN 2021-12-15 03:14:00 Jennifer Olivera [facility] CBC WITH DIFF 2021-12-15 03:14:00 Jennifer Olivera [facility] ACTIVATED PARTIAL 2021-12-15 03:13:00 Jennifer Olivera [facility] PROTHROMBIN TIME / INR 2021-12-15 03:13:00 Jennifer Olivera [facility] LIPASE 2021-12-15 03:13:00 Jennifer Olivera [facility] TROPONIN I 2021-12-15 03:13:00 Jennifer Olivera [facility] N-TERMINAL PRO-BNP 2021-12-15 03:13:00 Jennifer Olivera [facility] LIPASE 2021-12-15 03:13:00 Jennifer Olivera [facility] TROPONIN I 2021-12-15 03:13:00 Jennifer Olivera [facility] PROTHROMBIN TIME / INR 2021-12-15 03:13:00 Jennifer Olivera [facility] ACTIVATED PARTIAL 2021-12-15 03:13:00 Jarod [facility] N-TERMINAL PRO-BNP 2021-12-15 03:13:00 Jennifer Olivera [facility] LACTIC ACID WHOLE BLOOD 2021-12-15 03:12:00 [facility]LO[facility] 2021-12-15 03:12:00 Jarod [facility] EKG-12 LEAD 2021-12-15 01:55:16 Doctor Unassigned, No Univer sity of [facility] EKG-12 LEAD 2021-12-15 01:55:16 Doctor Unassigned, No Univer sity of [facility] EMERGENCY DEPARTMENT 2021-12-14 05:01:00 Doctor Unassigned, [facility] 2021-12-14 05:01:00 Doctor Unassigned, No Uni versity [facility] BASIC METABOLIC PANEL 2021-11-28 09:31:00 Peng Yadav [facility] (NA, K, CL, CO2, GLUCOSE, Medica l Branch BUN, CREATININE, CA) CBC WITH DIFF 2021-11-28 09:31:00 [facility] BASIC METABOLIC PANEL 2021-11-28 09:31:00 Shurtleff, [facility] (NA, K, CL, CO2, GLUCOSE, Medica l Branch BUN, CREATININE, CA) CBC WITH DIFF 2021-11-28 09:31:[address] [facility] BASIC METABOLIC PANEL 2021-11-27 08:57:00 Leif [facility] (NA, K, CL, CO2, GLUCOSE, Medica l Branch BUN, CREATININE, CA) CBC WITH DIFF 2021-11-27 08:57:[address] [facility] BASIC METABOLIC PANEL 2021-11-27 08:57:00 luc [facility] (NA, K, CL, CO2, GLUCOSE, Medica l Branch BUN, CREATININE, CA) CBC WITH DIFF 2021-11-27 08:57:[address] [facility] CBC WITH DIFF 2021-11-24 10:55:00 Courtney Mendes [facility] COMP. METABOLIC PANEL 2021-11-24 10:55:[address] [facility] ([id number]) [facility] N-TERMINAL PRO-BNP 2021-11-24 10:55:00 Cinthya jennifer [facility] COMP. METABOLIC PANEL 2021-11-24 10:55:[address] [facility] ([id number]) [facility] CBC WITH DIFF 2021-11-24 10:55:00 Cinthya jennifer [facility] N-TERMINAL PRO-BNP 2021-11-24 10:55:00 Cinthya jennifer [facility] CBC WITH DIFF 2021-11-23 11:33:00 Carlene Weaver [facility] COMP. METABOLIC PANEL 2021-11-23 11:33:[address] [facility] ([id number]) [facility] N-TERMINAL PRO-BNP 2021-11-23 11:33:00 Cinthya [facility] MAGNESIUM 2021-11-23 11:33:00 Cinthya jennifer [facility] MAGNESIUM 2021-11-23 11:33:00 Courtney Mendes [facility] COMP. METABOLIC PANEL 2021-11-23 11:33:00 Courtney Mendes [facility] ([id number]) [facility] CBC WITH DIFF 2021-11-23 11:33:00 Carlene Weaver [facility] N-TERMINAL PRO-BNP 2021-11-23 11:33:00 Courtney Mendes [facility] ASPIRATE OR ABSCESS 2021-11-22 21:31:00 [facility]ANAEROBIC Medica l Branch ) ASPIRATE OR ABSCESS 2021-11-22 21:31:00 Lonnie [facility] CULTURE(AEROBIC/ANAEROBIC Medica l Branch ) PROTEIN CREAT RATIO URINE 2021-11-22 11:11:00 Courtney Mendes [facility] SODIUM, URINE RANDOM 2021-11-22 11:11:00 Courtney Mendes [facility] SODIUM, URINE RANDOM 2021-11-22 11:11:00 Courtney Mendes [facility] PROTEIN CREAT RATIO URINE 2021-11-22 11:11:00 Courtney Meneds [facility] XR CHEST 1 VW 2021-11-22 11:07:43 Courtney Mendes [facility] XR FOOT 3+ VW LEFT 2021-11-22 11:07:43 Courtney Mendes [facility] XR CHEST 1 VW 2021-11-22 11:07:43 Courtney Mendes [facility] XR FOOT 3+ VW LEFT 2021-11-22 11:07:43 Courtney Mendes [facility] URINE DRUG (IMMUNOASSAY) 2021-11-22 11:07:00 Courtney Mendes [facility] DRUG Medical [facility] SCREEN URINE DRUG (LCMSMS) - 2021-11-22 11:07:00 Courtney Mendes [facility] OPIATES PANEL [facility] URINE DRUG (IMMUNOASSAY) 2021-11-22 11:07:00 Courtney Mendes [facility] SCREEN URINE DRUG (LCMSMS) - 2021-11-22 11:07:00 Cinthya jennifer [facility] SYNTHETIC OPIATES PANEL Medical Branch SEDIMENTATION RATE 2021-11-22 11:03:00 Cinthya jennifer [facility] PROCALCITONIN 2021-11-22 11:03:00 Cinthya [facility] CBC WITH DIFF 2021-11-22 11:03:00 Cinthya [facility] COMP. METABOLIC PANEL 2021-11-22 11:03:[address] [facility] ([id number]) [facility] N-TERMINAL PRO-BNP 2021-11-22 11:03:00 Cinthya jennifer [facility] MAGNESIUM 2021-11-22 11:03:00 Cinthya [facility] PHOSPHORUS 2021-11-22 11:03:00 Cinthya [facility] CREATINE KINASE 2021-11-22 11:03:00 Cinthya [facility] VITAMIN D, 25-OH 2021-11-22 11:03:00 Cinthya [facility] VITAMIN B12, LEVEL 2021-11-22 11:03:00 Cinthya [facility] GLYCOSYLATED HEMOGLOBIN 2021-11-22 11:03:00 Cinthya jennifer [facility] (A1C) [facility] PHOSPHORUS 2021-11-22 11:03:00 Cinthya [facility] CREATINE KINASE 2021-11-22 11:03:00 Cinthya [facility] MAGNESIUM 2021-11-22 11:03:00 Cinthya [facility] VITAMIN B12, LEVEL 2021-11-22 11:03:00 Cinthya [facility] COMP. METABOLIC PANEL 2021-11-22 11:03:[address] [facility] ([id number]) [facility] SEDIMENTATION RATE 2021-11-22 11:03:00 Cinthya [facility] CBC WITH DIFF 2021-11-22 11:03:00 Cinthya [facility] GLYCOSYLATED HEMOGLOBIN 2021-11-22 11:03:00 Cinthya [facility] (A1C) [facility] N-TERMINAL PRO-BNP 2021-11-22 11:03:00 Cinthya [facility] VITAMIN D, 25-OH 2021-11-22 11:03:00 Cinthya [facility] PROCALCITONIN 2021-11-22 11:03:00 Cinthya [facility] CT ANGIOGRAM LOWER 2021-11-22 03:39:00 Jennifer Olivera [facility] EXTREMITY LEFT W CONTRAST Medica l Branch CT ANGIOGRAM LOWER 2021-11-22 03:39:00 Jennifer Olivera [facility] EXTREMITY LEFT W CONTRAST Medica l Branch CT HEAD WO CONTRAST 2021-11-22 03:25:00 Jennifer Olivera [facility] CT HEAD WO CONTRAST 2021-11-22 03:25:00 Jennifer Olivera [facility] URINALYSIS 2021-11-22 01:22:00 Jennifer Olivera [facility] URINE CULTURE 2021-11-22 01:22:00 Jennifer Olivera [facility] URINALYSIS 2021-11-22 01:22:00 Jennifer Olivera [facility] URINE CULTURE 2021-11-22 01:22:00 Jennifer Olivera [facility] CBC WITH DIFF 2021-11-22 00:58:00 Jennifer Olivera [facility] ACTIVATED PARTIAL 2021-11-22 00:58:00 Jennifer Olivera [facility] / INR 2021-11-22 00:58:00 eJnnifer Olivera [facility] COMP. METABOLIC PANEL 2021-11-22 00:58:00 Jennifer Olivera [facility] ([id number]) [facility] BLOOD CULTURE SCREEN 2021-11-22 00:58:00 Jennifer Olivera [facility] LACTIC ACID WHOLE BLOOD 2021-11-22 00:58:00 Jennifer Olivera [facility] N-TERMINAL PRO-BNP 2021-11-22 00:58:00 Courtney Mendes [facility] MAGNESIUM 2021-11-22 00:58:00 Cinthya [facility] PHOSPHORUS 2021-11-22 00:58:00 Cinthya [facility] FERRITIN SERUM 2021-11-22 00:58:00 Cinthya [facility] IRON PANEL 2021-11-22 00:58:00 Cinthya [facility] THYROID STIMULATING 2021-11-22 00:58:00 C[facility]ya [facility] LIPID PANEL (74312)(TOTAL 2021-11-22 00:58:00 Courtney Mendes [facility] TRIGLY[facility], HDL) BLOOD CULTURE SCREEN 2021-11-22 00:58:00 Jennifer Olivera [facility] PHOSPHORUS 2021-11-22 00:58:00 Cinthya [facility] MAGNESIUM 2021-11-22 00:58:00 Cinthya [facility] FERRITIN SERUM 2021-11-22 00:58:00 Cinthya [facility] THYROID STIMULATING 2021-11-22 00:58:00 [facility]ya [facility] COMP. METABOLIC PANEL 2021-11-22 00:58:00 Jennifer Olivera [facility] ([id number]) [facility] LIPID PANEL (21725)(TOTAL 2021-11-22 00:58:00 Courtney Mendes [facility] TRIGLYCERIDES, HDL) IRON PANEL 2021-11-22 00:58:00 Cinthya [facility] CBC WITH DIFF 2021-11-22 00:58:00 Jennifer Olivera [facility] PROTHROMBIN TIME / INR 2021-11-22 00:58:00 Jennifer Olivera [facility] ACTIVATED PARTIAL 2021-11-22 00:58:00 Jennifer Olivera [facility] THRMPLAS [facility] N-TERMINAL PRO-BNP 2021-11-22 00:58:00 Courtney Mendes [facility] LACTIC ACID WHOLE BLOOD 2021-11-22 00:58:00 Jennifer Olivera [facility] 2021-11-21 05:01:00 Doctor Unassigned, No [facility] ADM - [facility] 2021-11-21 05:01:00 Doctor Unassigned, No Un ivers[facility] HOSPITAL ADMISSION 2021-11-21 05:01:00 Doctor Unassigned, No Uni versity of [facility] EMERGENCY DEPARTMENT 2021-11-21 05:01:00 Doctor Unassigned, No [facility] ADM - [facility] 2021-11-21 05:01:00 Doctor Unassigned, No Un i[facility]ity [facility] Spinal puncture, lumbar, 2021-10-24 20:30:00 Tony Gomez diagnostic; with fluoroscopic or CT guidance MAGNESIUM 2021-10-16 04:12:00 [facility] COMP. METABOLIC PANEL 2021-10-16 04:12:00 [id number] CBC WITH DIFF 2021-10-16 04:12:00 [facility] CT HEAD WO CONTRAST 2021-09-29 00:15:29 Roger Neff [facility] URINALYSIS 2021-09-28 23:53:00 Roger Neff [facility] COMP. METABOLIC PANEL 2021-09-28 23:52:00 Roger Neff [facility] ([id number]) [facility] CBC WITH DIFF 2021-09-28 23:52:00 Roger Neff [facility] XR CHEST 1 VW 2021-08-07 03:03:32 Courtney Mendes [facility] COMP. METABOLIC PANEL 2021-08-06 11:57:00 Mari Wong [facility] ([id number]) [facility] CBC WITH DIFF 2021-08-06 11:57:00 Mari Wong [facility] BASIC METABOLIC PANEL 2021-08-04 12:10:00 [facility] (NA, K, CL, CO2, GLUCOSE, Medica l Branch BUN, CREATININE, CA) CBC WITH DIFF 2021-08-04 12:[facility]00 [facility] 2021-08-04 00:40:00 Hanh Gunter [facility] URINE CULTURE 2021-08-04 00:40:00 Hanh Gunter [facility] FECES CULTURE 2021-08-03 14:58[facility]00 [facility] BLOOD 2021-08-03 14:58:00 JacobFormerly [facility] CLOSTRIDIUM DIFFICILE 2021-08-03 14:58:00 [facility] TOXIN [facility] FECAL PATHOGENS BY PCR 2021-08-03 14:58:00 [facility]INE DRUG (IMMUNOASSAY) 2021-08-03 10:11:00 [facility]-19 (ID NOW RAPID 2021-08-03 07:33:00 Lamine Serna [facility] TESTING) Medical Branch LAB ONLY COVID 2021-08-03 07:33:00 Lamine Serna [facility] INTERPRETATION [facility] COMP. METABOLIC PANEL 2021-08-03 06:18:00 Lamine Serna [facility] ([id number]) Medical [place] CBC WITH DIFF 2021-08-03 05:40:00 Lamine Serna [facility] URINALYSIS 2021-08-01 01:43:00 Stephanie Balderrama [facility] LIPASE 2021-08-01 01:40:00 Stephanie Balderrama [facility] COMP. METABOLIC PANEL 2021-08-01 01:40:00 Stephanie Balderrama [facility] ([id number]) Medical Branch CBC WITH DIFF 2021-08-01 01:38:00 Stephanie Balderrama [facility] XR CHEST 1 VW 2021-07-31 23:40:19 Stephanie Balderrama [facility] ASSIGNMENT OF BENEFITS 2021-07-31 22:05:40 Doctor Unassigned, No [facility] NOTICE OF PRIVACY 2021-07-31 22:04:58 Doctor Unassigned, No [facility] PRACTICES Name [facility] CONSENT/REFUSAL FOR 2021-07-31 22:04:33 Doctor Unassigned, No [facility] DIAGNOSIS AND TREATMENT Name [facility] URINALYSIS 2021-07-29 23:09:00 Lynette Fonseca [facility] BLOOD CULTURE SCREEN 2021-07-29 23:04:00 Lynette Fonseca [facility] D-DIMER 2021-07-29 22:49:00 Lynette Fonseca [facility] COVID-19 (ID NOW RAPID 2021-07-29 22:48:00 Lynette Fonseca [facility] TESTING) [facility] COMP. METABOLIC PANEL 2021-07-29 22:17:00 Lynette Fonseca [facility] ([id number]) [facility] CBC WITH DIFF 2021-07-29 22:17:00 Lynette Fonseca [facility] XR CHEST 1 VW 2021-07-29 21:47:19 Lynette Fonseca [facility] COMP. METABOLIC PANEL 2021-06-07 22:20:00 Sidney Sanford [facility] ([id number]) Medical Branch CBC WITH DIFF 2021-06-07 22:20:00 Sidney Sanford o f [facility] CT ABDOMEN PELVIS WO 2020-11-21 00:39:40 Brittany Helms [facility] CONTRAST Medical Branch LIPASE 2020-11-21 00:06:00 Brittany Helms [facility] COMP. METABOLIC PANEL 2020-11-21 00:06:00 [id number] Branch CBC WITH DIFF 2020-11-21 00:06:00 Brittany Helms [facility] URINALYSIS 2020-11-21 00:00:00 Brittany Helms [facility] COVID-19 (ID NOW RAPID 2020-11-21 00:00:00 Brittany [facility] Medical Branch Cholecystectomy [facility] Jason 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 Plan of Care Planned Activity Planned Date Details Comments Source Future Scheduled 2022-07-[address] [facility] 00:00:00 (procedure) [code = [facility] 99357088] Future Scheduled 2022-07-[address] [facility] 00:00:00 (procedure) [code = [facility] 72733086] Future Scheduled 2022-07-[address] [facility] Test 00:00:00 (procedure) [code = [facility] 80050128] Future Scheduled 2022-07-[address] [facility] 00:00:00 (procedure) [code = Medical Center 82093486] Future Scheduled 2022-03-15 INFLUENZA VACCINE (#1) C [...] 00:00:00 measurement Medical Center (procedure) [code = 67184896] Future Scheduled 2019-10-[address] [facility] 00[facility] measurement [facility] (procedure) [code = 12079180] Future Scheduled 2019-10-[address] [facility] 00:00:00 measurement Medical Center (procedure) [code = 59202154] Future Scheduled 2019-10-[address] [facility] 00:00:00 [facility] Medical Center (procedure) [code = 30467032] Future Scheduled 2004 DTAP/TDAP/TD VACCINES CH I [...] 00:00:00 protein (procedure) Medical Center [code = 549802570] Future Scheduled [address] DIABETIC EYE EXAM [facility] Test 00:00:00 [code = DIABETIC EYE Medical Center EXAM] Future Scheduled 1995 Urine screening for [facility] Test 00:00:00 protein (procedure) Medical Center [code = 449500413] Future Scheduled 1995 DIABETIC EYE EXAM [facility] Test 00:00:00 [code = DIABETIC EYE Medical Center EXAM] Future Scheduled 1995 Urine screening for [facility] Test 00:00:00 protein (procedure) Medical Center [code = 755595299] Future Scheduled 1995 DIABETIC EYE EXAM [facility] Test 00:00:00 [code = DIABETIC EYE Medical Center EXAM] Future Scheduled 1995 Urine screening for [facility] Test 00:00:00 protein (procedure) Medical Center [code = 005844333] Future Scheduled [address] [...] Type Clinicians Facility Department ID 2022-06-25 Outpatient [facility] [id number] [place] 10:51:49 1212 [facility] 2021-10-23 Outpatient [facility] [id number] [place] 08:22:27 0411 [facility] 2021-10-09 Outpatient [facility] [id number] [place] 11:10:01 0328 [facility] 2021-08-09 Outpatient Nichole, STLMLC [facility] [id number] Common 13:45:16 Eren [id number] [facility] 2021-08-09 Outpatient Nichole, STLMLC [facility] [id number] Common 13:17:39 Eren [id number] [facility] 2021-08-09 Outpatient Nichole, STLMLC [facility] [id number] Common 13:16:34 Eren [id number] [facility] 2022-10-31 2022-10-31 Outpatient R YUDI HOLLOWAY [facility] [id number] Univers 13:00:00 13:00:00 YUDI HOLLOWAY [facility] 2022-07-15 2022-07-15 Patient Yudi Holloway [facility] 1.2.840.114 [id number] Univers 00:00:00 00:00:00 Secure [facility] HEALTH 350.1.13.10 ity of [facility] [place] 4.2.7.2.686 Tim as VICENTA?BLEA [phone] [facility] 2022-07-05 2022-07-05 [facility] [id number] Univers 13:00:00 15:17:50 KIN ity [facility] 2022-07-05 2022-07-05 Office [facility] 1.2.840.114 [id number] Univers 13:00:00 15:17:50 Visit [facility] 350.1.13.10 i ty of [facility] 4.2.7.2.[place] [phone] [address] 2022-07-05 2022-07-05 Orders Doctor ORION 1.2.840.114 [id number] Univers 00:00:00 00:00:00 Only Unassigned, CHRISTINE 350.1.13.10 ity of [place] [facility] 4.2.7.2.686 Tim as [phone] [address] 2022-06-25 2022-06-25 Outpatient R YUDI HOLLOWAY [facility] [id number] Univers 13:00:00 13:39:07 [facility] 2022-06-25 2022-06-25 Office [facility] 1.2.840.114 [id number] Univers 13:00:00 13:39:07 Visit [facility] 350.1.13.10 it y of [place] 4.2.7.2.686 Tim as VICENTA?BLEA [phone] [address] 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 [employer] [facility], Kevan Thomas [facility] 1.2.840.1 [id number] Univers 12:45:00 13:00:00 Visit Yudi Holloway [facility] 350.1.13.10 it y of [place] 4.2.7.2.686 Tim as VICENTA?BLEA [phone] [facility] [address] MEDICAL OFFICE BUILDING 2022-05-20 2022-05-21 [facility] [id number] Univers 16:26:00 17:36:00 NEGAR saba [facility] 2022-05-20 2022-05-21 Emergency Lynette Fonseca [facility] 1.2.840 .114 [id number] Univers 16:26:00 17:36:00 Negar Guardado 350.1.13.10 ity of [facility] 4.2.7.2.686 [facility] [id number] [facility] 081 [place] 2022-05-14 2022-05-14 Emergency X CONCHIS, [facility] ERT [id number] Univers 20:12:00 22:15:00 STEPHANIE [facility] 2022-05-14 2022-05-14 [facility] 1.2.830.483 [id number] Univers 20:12:00 22:15:00 Stephanie DURAN 350.1.13.10 ity of [place] 4.2.7.2.686 [facility] [phone] [facility] 084 [place] 2022-05-12 2022-05-12 Emergency X JUAN CARLOS, [facility] ERT [id number] Univers 19:14:00 22:40:00 LAMINE [facility] 2022-05-12 2022-05-12 [facility] 1.2.076.095 [id number] Univers 19:14:00 22:40:00 Lamine DURAN 350.1.13.10 ity of [place] 4.2.7.2.686 [facility] [id number] [facility] 084 Branch 2022-05-08 2022-05-08 Transition DEVANTE Zepeda 1.2.840.114 [id number] Univers 00:00:00 00:00:00 of Care Kamila GILLESPIE 350.1.13.10 [place] 4.2.7.2.686 [facility] [id number] [facility] 403 Branch 2022-05-04 2022-05-06 Inpatient X ELLIE, [facility] [id number] Univers 00:19:00 12:45:00 FARZADY ity of [facility] 2022-05-04 2022-05-06 Hospital Diomedes Joseph [facility] 1.2.8 40.114 [id number] Univers 00:19:00 12:45:00 Encounter Kaylee Argueta 350.1.13.10 ity [facility] 4.2.7.2.686 [place] [facility] [id number] [facility] 081 Branch 2022-05-01 2022-05-01 Outpatient R BEVERLY [facility] [id number] Univers 08:00:00 08:00:00 SARAH BETH ity [facility] 2022-04-23 2022-04-23 Outpatient R [facility]LY [facility] [id number] Univers 08:00:00 08:00:00 SARAH BETH ity [facility] 2022-04-04 2022-04-04 Outpatient R YUDI HOLLOWAY [facility] [id number] Univers 14:00:00 14:00:00 YUDI HOLLOWAY ity [facility] 2022-04-02 2022-04-02 Outpatient R [facility] [id number] Univers 08:30:00 08:30:00 SARAH BETH ity [facility] 2022-03-12 2022-03-12 [facility] [id number] Univers 08:00:00 08:00:00 SARAH BETH ity [facility] 2022-03-02 2022-03-02 [facility] [id number] Univers 11:30:00 11:30:00 SARAH BETH ity [facility] 2022-03-01 2022-03-01 Telephone ORION Golden 1.2.840.114 [id number] Univers 00:00:00 00:00:00 Vesta KING 350.1.13.10 i ty [facility] 4.2.7.2.686 Tim [id number] [facility] 025 Branch 2022-03-01 2022-03-01 Telephone Renetta [facility] 1.2.115.970 [id number] Univers 00:00:00 00:00:00 Concetta MULTISPEC 350.1.13.10 it[place] of [place].2.[place] [id number] [facility] [employer] 389 Branch [facility] 2022-02-26 2022-02-26 Transition DEVANTE Alvarado 1.2.840.114 [id number] Univers 00:00:00 00:00:00 of Care Kristie Alex GILLESPIE 350.1.13.10 i ty [place] [id number] [facility] 403 Branch 2022-02-14 2022-02-23 Inpatient RICARDO HORVATH [facility] [id number] Univers 22:57:00 15:56:00 ity of [facility] 2022-02-14 2022-02-23 Hospital Vic Mcdonald 1.2.840. 114 [id number] Univers 22:57:00 15:56:00 Encounter Royer Brooke 350.1 .13.10 ity of [place] 4.2.7.2.686 [facility] [id number] Ricardo Alcaraz 095 Branch 2022-02-20 2022-02-20 Anesthesia Heide Abraham 1.2.84 0.114 [id number] Univers 11:25:00 12:55:00 Event Huy Singh 350.1.13.10 ity of HOSPITAL 4.2.7.2.686 Tim as [id number] [facility] 103 Branch 2022-02-20 2022-02-20 Surgery IVAN Paul 1.2.958.321 [id number] Univers 10:12:00 11:55:00 Sarah Bethfauzia KING 350.1.13.10 ity of [facility] 4.2.7.2.686 Tim as [id number] [facility] 103 Branch 2022-02-14 2022-02-14 Travel 1.2.840.1 1.2.860.472 [id number] Univers 00:00:00 00:00:00 22486.1.1 350.1.13.10 ity of 3.104.2.7 [place].3.698 [place] .3.203358 084.8 Medica l .8 Branch 2022-02-12 2022-02-12 Transition Duane, 1.2.840.0 [id number] Univers 00:00:00 00:00:00 of Care Kamila 34949.1.1 i ty of 3.104.2.7 [place] .3.266744 Medica l .8 Branch 2022-02-06 2022-02-10 Inpatient X LILIDEBORAH [facility] [id number] Univers 18:31:00 18:27:00 DILEEP ity [facility] 2022-02-06 2022-02-10 [facility] Carlene Laurent 1.2.840.1 [id number] Univers 18:31:00 18:27:00 Encounter Kaylee Argueta 81593.1.1 ity Dileep Connolly 3.104.2.7 [place] .3.967835 Medica l .8 [place] 2022-02-07 2022-02-07 [facility] [id number] Univers 13:00:00 13:00:00 SHAHBAZ saba o f [facility] 2022-02-06 2022-02-06 Travel 1.2.840.1 1.2.317.000 [id number] Univers 00:00:00 00:00:00 96203.1.1 350.1.13.10 ity of 3.104.2.7 4.[place]7.3.698 [place] .3.291259 084.8 Medica l .8 [place] 2022-01-26 2022-01-26 Emergency X MARION, UTMINO ERT [id number] Univers 17:06:00 23:29:00 SIDNEY saba [facility] 2022-01-26 2022-01-26 Emergency Randall Sands 1.2.840.1 [id number] Univers 17:06:00 23:29:00 Sidney Sanford 48385.1.1 ity of 3.104.2.7 [place] .3.230911 Medica l .8 Branch 2022-01-26 2022-01-26 Travel 1.2.840.1 1.2.688.287 [id number] Univers 00:00:00 00:00:00 23339.1.1 350.1.13.10 ity of 3.104.2.7 4.[place].7.3.698 [place] .3.321269 084.8 Medica l .8 Branch 2022-01-19 2022-01-19 Outpatient [facility] [id number] Univers 14:00:00 14:00:00 SHAHBAZ saba o f [facility] 2022-01-17 2022-01-17 [facility] [id number] Univers 04:52:00 08:20:00 JENNIFER armstrongy [facility] 2022-01-17 2022-01-17 Emergency Jarod, 1.2.840.3 [id number] Univers 04:52:00 08:20:00 Jennifer 65573.1.1 ity of 3.104.2.7 [place] .3.923515 Medica l .8 Branch 2022-01-17 2022-01-17 Travel 1.2.840.1 1.2.912.673 [id number] Univers 00:00:00 00:00:00 70551.1.1 350.1.13.10 ity of 3.104.2.7 4[place].7.3.698 [place] .3.238027 084.8 Medica l .8 Branch 2022-01-16 2022-01-16 Transition Zepeda, 1.2.840.3 [id number] Univers 00:00:00 00:00:00 of Care Kamila 95942.1.1 i ty of 3.104.2.7 [place] .3.440036 Medica l .8 Branch 2022-01-09 2022-01-12 Inpatient [facility] [id number] Univers 20:31:00 21:18:00 DOV saba of [facility] 2022-01-09 2022-01-12 [facility] Jennifer Olivera 1.2.840.1 [id number] Univers 20:31:00 21:18:00 Encounter Dontae Talley 95635.1.1 ity of [place]ov [place] 3.104.2.7 [place] .3.385327 Medica l .8 Branch 2022-01-10 2022-01-10 Transition Duane, 1.2.840.9 [id number] Univers 00:00:00 00:00:00 of Care Kamila 19610.1.1 i ty of 3.104.2.7 [place] .3.252869 Medica l .8 Branch 2022-01-09 2022-01-09 Travel 1.2.840.1 1.2.735.552 [id number] Univers 00:00:00 00:00:00 46066.1.1 350.1.13.10 ity of 3.104.2.7 4.[place].7.3.698 [place] .3.213284 084.8 Medica l .8 [place] 2022-01-08 2022-01-08 Transition Duane, 1.2.840.8 [id number] Univers 00:00:00 00:00:00 of Care Kamila 33113.1.1 i ty of 3.104.2.7 [place] .3.746091 Medica l .8 [place] 2022-01-04 2022-01-06 Inpatient X GEO [facility] [id number] Univers 22:21:00 16:16:00 NEGAR itlizet of [facility] 2022-01-04 2022-01-06 Hospital Vadim Ferreira Andrew 1.2.840.6 [id number] Univers 22:21:00 16:16:00 Encounter Negar Guardado 08002.1.1 ity of 3.104.2.7 [place] .3.432077 Medica l .8 Branch 2022-01-04 2022-01-04 Travel 1.2.840.1 1.2.731.479 [id number] Univers 00:00:00 00:00:00 58482.1.1 350.1.13.10 ity of 3.104.2.7 4.[place].7.3.698 [place] .3.003783 084.8 Medica l .8 Branch 2021-12-19 2021-12-22 Outpatient X ELLIE [facility] [id number] Univers 18:25:00 19:30:00 MERCY ity of [facility] 2021-12-19 2021-12-22 Emergency Mario Johnson 1.2.840.2 [id number] Univers 18:25:00 19:30:00 Kaylee Argueta 98987.1.1 ity of 3.104.2.7 [place] .3.729371 Medica l .8 Branch 2021-12-20 2021-12-20 Travel 1.2.840.1 1.2.343.213 [id number] Univers 00:00:00 00:00:00 06932.1.1 350.1.13.10 ity of 3.104.2.7 4.[place].7.3.698 [place] .3.450321 084.8 Medica l .8 Branch 2021-12-19 2021-12-19 Travel 1.2.840.1 1.2.596.954 [id number] [id number] Univers 00:00:00 00:00:00 96565.1.1 350.1.13.10 ity of 3.104.2.7 4.[place].7.3.698 [place] .3.877818 084.8 Medica l .8 Branch 2021-12-19 2021-12-19 Transition Alvarado, 1.2.840.9 [id number] Univers 00:00:00 00:00:00 of Care Kristie M 68440.1.1 ity of 3.104.2.7 [place] .3.360301 Medica l .8 [place] 2021-12-14 2021-12-18 Inpatient X SHAIKH [facility] [id number] Univers 20:53:00 18:25:00 KIRIT atkins [facility] 2021-12-14 2021-12-18 [facility] Jennifer Olivera 1.2.840.1 [id number] Univers 20:53:00 18:25:00 Encounter Vito Mckeon 60281.1.1 ity of Terminlexii Thomas 3.104.2.7 [place] Burger, Daily H .3.838311 Medical Kirit Lara .8 Branch 2021-12-14 2021-12-14 Travel 1.2.840.1 1.2.837.687 [id number] Univers 00:00:00 00:00:00 52680.1.1 350.1.13.10 ity of 3.104.2.7 4.2.7.3.698 [place] .3.825231 084.8 Medica l .8 Branch 2021-11-29 2021-11-29 Transition Zepeda, 1.2.840.2 [id number] Univers 00:00:00 00:00:00 of Care Kamila 74723.1.1 i ty of 3.104.2.7 [place] .3.819413 Medica l .8 Branch 2021-11-21 2021-11-28 Inpatient X CINTHYA [facility] [id number] Univers 19:10:00 17:32:00 ADNAN ity of [facility] 2021-11-21 2021-11-28 [facility] Jennifer Olivera 1.2.840.1 [id number] Univers 19:10:00 17:32:00 Encounter Courtney Mendes 11045.1.1 ity of 3.104.2.7 [place] .3.831906 Medica l .8 Branch 2021-11-21 2021-11-21 Travel 1.2.840.1 1.2.211.480 [id number] Univers 00:00:00 00:00:00 06849.1.1 350.1.13.10 ity of 3.104.2.7 4[place].7.3.698 [place] .3.000523 084.8 Medica l .8 Branch 2021-10-24 2021-10-25 Observatio nullFlavo [facility] [id number] Memoria 12:00:00 22:50:00 n adriano Gomez 98 l [facility] 2021-10-24 2021-10-25 Observatio [facility]Flavo [facility] [id number] [id number] Memoria 12:00:00 22:50:00 n adriano Gomez 98 l [facility] 2021-10-24 2021-10-25 Outpatient U ALEXIS, [facility] 2097 [facility] 07:00:00 17:50:00 AKASH 2021-10-24 2021-10-25 Outpatient Alexis, [facility] [id number] 07:00:00 17:50:00 Akash Rafal 2021-10-20 2021-10-20 Outpatient Alexis, [facility] 5510 [id number] 18:14:00 18:14:00 Akashlaurent Frankel 2021-10-15 2021-10-16 Emergency X [facility] ERT [id number] [facility] 22:45:00 01:52:00 SIDNEY saba [facility] 2021-10-15 2021-10-16 Emergency [facility] [id number] [facility] 22:45:00 01:52:00 Sidney DURAN 350.1.13.10 [facility] 4.2.7.2.686 [facility] [id number] [address] 2021-10-06 2021-10-10 Inpatient [facility]Flavo [facility] [id number] Memoria 05:12:00 15:30:00 adriano Gomez 84 l [facility] 2021-10-06 2021-10-10 Inpatient [facility]Flavo [facility] [id number] Memoria 05:12:00 15:30:00 adriano Gomez 84 l [facility] 2021-10-06 2021-10-10 Outpatient Danita, [facility] [facility] [id number] 620 00:12:00 10:30:00 Josemanuel Silverio Chan 2021-10-06 2021-10-06 [facility] [id number] Memoria 02:51:00 02:51:00 r Jason 83 l [facility] 2021-10-06 2021-10-06 [facility] [id number] Memoria 02:51:00 02:51:00 [facility] 83 l [facility] 2021-10-06 2021-10-06 Outpatient Danita, [facility] [id number] 620 00:12:00 00:12:00 Josemanuel Chan 2021-10-05 2021-10-05 Outpatient [facility], [facility] [id number] 620 21:51:00 21:51:00 Josemanuel Chan 2021-09-28 2021-09-28 Emergency X TAWANDA, K [facility] ERT [id number] Univers 18:08:00 22:51:00 ity of [facility] 2021-09-28 2021-09-28 Emergency Tawanda, Roger [facility] [id number] Univers 18:08:00 22:51:00 Cici DURAN 350.1.13.10 i ty of [facility] 4.2.7.2.686 [facility] [id number] [facility] [address] 2021-08-09 2021-08-09 Transition DEVANTE Zepeda 1.2.840.114 [id number] Univers 00:00:00 00:00:00 of Care Kamila GILLESPIE 350.1.13.10 ity NASRA 4.2.7.2.686 [facility] [id number] [facility] 403 [address] 2021-08-02 2021-08-08 Inpatient X [facility] [id number] Univers 19:07:00 19:39:00 LAMINE ity [facility] 2021-08-02 2021-08-08 [facility] 1.2.840. 114 [id number] Univers 19:07:00 19:39:00 Encounter Kaylee Argueta 350.1.13.10 ity of [place] 4.2.7.2.686 [facility] [id number] [facility] 081 [address] 2021-07-31 2021-07-31 Emergency X CONCHIS, [facility] ERT [id number] Univers 14:41:00 22:07:00 STEPHANIE [facility] 2021-07-31 2021-07-31 Emergency Cacsabi, [facility] [id number] Univers 14:41:00 22:07:00 Stephanie DURAN 350.1.13.10 ity [facility] 4.2.7.2.686 [facility] [id number] [address] 2021-07-29 2021-07-29 [facility] [id number] Univers 14:49:00 21:33:00 LYNETTE [facility] 2021-07-29 2021-07-29 Emergency [facility] [id number] Univers 14:49:00 21:33:00 Lynette DURAN 350.1.13.10 ity [facility] 4.2.7.2.686 [facility] [id number] [address] 2021-07-11 2021-07-11 Laboratory Only, Ang Db Test [facility] 1.2.8 40.114 [id number] Univers 18:00:00 18:15:00 Only Sierra Lundberg [facility] 350.1.13.10 [facility] 4.2.7.2.686 Tim as VICENTA?BLEA [id number] [address] MEDICAL OFFICE BUILDING 2021-07-11 2021-07-11 Outpatient R SAILAJA [facility] [id number] Univers 18:00:00 18:00:00 SIERRA [facility] 2021-07-05 2021-07-05 (TEL) [facility] [id number] Co mmon 00:00:00 00:00:00 Spirit - [facility] 2021-07-04 2021-07-04 (ESTPT) STLMLC STLC [id number] Co mmon 00:00:00 00:00:00 Karen snell Patient - [facility] 2021-06-07 2021-06-07 Emergency X , [facility] ERT [id number] Univers 15:54:00 18:34:00 SIDNEY saba [facility] 2021-06-07 2021-06-07 [facility] 1.2.026.213 [id number] Univers 15:54:00 18:34:00 Sidney DURAN 350.1.13.10 i ty of [place] 4.2.7.2.686 [facility] [id number] [place] [address] Branch 2021-04-25 2021-04-25 (TEL) STLMLC STLMLC [id number] Co mmon 00:00:00 00:00:00 [facility] 2021-04-11 2021-04-11 (ESTPT) STLMLC STLMLC [id number] Co mmon 00:00:00 00:00:00 Establishe Spi rit d Patient - [facility] 2021-02-21 2021-02-21 (TEL) STLMLC STLMLC [id number] Co mmon 00:00:00 00:00:00 [facility] 2021-01-31 2021-01-31 (ESTPT) STLMLC STLMLC [id number] Co mmon 00:00:00 00:00:00 Establishe Spi rit d Patient - [facility] 2021-01-03 2021-01-03 OFFICE STLMLC STLMLC [id number] Co mmon 00:00:00 00:00:00 VISIT [facility] it PT LEVEL 3 - [facility] 2020-11-20 2020-11-20 Emergency [facility] 1.2.840.114 [id number] Univers 18:22:00 22:21:00 Brittany Duran 350.1.13.10 ity of [place] 4.2.7.2.686 [facility] [id number] [place] [address] Branch 2020-11-20 2020-11-20 Emergency [facility] 1.2.840.114 [id number] 18:22:00 22:21:00 Brittany Duran 350.1.13.10 [place] [address] [place] [address] [id number] [facility] 2020-11-20 2020-11-20 Emergency X [facility] ERT [id number] Univers 18:22:00 18:22:00 FOLUSHO ity [facility] 2019-03-02 2019-03-04 Phone nullFlavo MNA [id number] Memoria 16:11:26 04:59:59 Message r Neurosurger 08 l y [facility] 2019-03-02 2019-03-04 Phone nullFlavo MNA [id number] Memoria 16:11:26 04:59:59 Message r Neurosurger 08 l y [facility] 2019-03-02 2019-03-03 Outpatient MHMISCHER MHMISCHER [id number] 11:11:26 23:59:59 08 2019-02-10 2019-02-12 Phone nullFlavo MNA [id number] Memoria 16:16:47 04:59:59 Message r Neurosurger 07 l y [facility] 2019-02-10 2019-02-12 Phone nullFlavo MNA [id number] Memoria 16:16:47 04:59:59 Message r Neurosurger 07 l y [facility] 2019-02-10 2019-02-11 Outpatient MHMISCHER MISCHER [id number] 11:16:47 23:59:59 07 2019-01-26 2019-01-28 Phone nullFlavo MNA [id number] Memoria 15:52:03 04:59:59 Message r Neurosurger 06 l y [facility] 2019-01-26 2019-01-28 Phone nullFlavo MNA [id number] Memoria 15:52:03 04:59:59 Message r Neurosurger 06 l y [facility] 2019-01-26 2019-01-27 Outpatient MHMISCHER MHMISCHER [id number] 10:52:03 23:59:59 2019-01-01 2019-01-03 Phone nullFlavo MNA [id number] Memoria 18:55:03 04:59:59 Message r Neurosurger 05 l y [facility] 2019-01-01 2019-01-03 Phone nullFlavo MNA [id number] Memoria 18:55:03 04:59:59 Message r Neurosurger 05 l y [facility] 2019-01-01 2019-01-02 Outpatient MHMISCHER MHMISCHER [id number] 13:55:03 23:59:59 05 2018-05-22 2018-05-22 [facility] [id number] Memoria 10:12:00 18:24:00 r [place] 12 [facility] 2018-05-22 2018-05-22 Emergency nullFlavo [facility] [id number] Memoria 10:12:00 18:24:[address] 2018-05-22 2018-05-22 Outpatient Neal [facility] [id number] 04:12:00 12:24:00 Zahra Johnson 12 2018-02-18 2018-02-18 [facility] [id number] Common 11:15:00 11:15:[address] [facility] 2018-01-27 2018-01-27 Outpatient [facility] 14 [id number] Common 11:30:00 11:30:[address] [facility] 2018-01-03 2018-01-03 Outpatient [facility] 14 [id number] Common 15:41:00 15:41:[address] [facility] 2017-12-23 2017-12-23 Outpatient [facility] 14 [id number] Common 15:42:00 15:42:[address] [facility] 2017-12-17 2017-12-17 Out[facility] 13 [id number] Common 11:00:00 11:00:[address] [facility] 2017-11-14 2017-11-19 Inpatient nullFlavo [facility] [id number] Memoria 22:40:00 17:28:00 r [place] 23 [facility] 2017-11-14 2017-11-19 [facility] [id number] Memoria 22:40:00 17:28:00 adriano Gomez 23 [facility] 2017-11-14 2017-11-19 Outpatient Ruth Quesada [facility] [id number] 17:40:00 12:28:00 Percy 23 Results Test Description Test Time Test Comments Results Result Comments Source POCT HEMOGLOBIN A1C TEST 2022-06-25 19:04:00 Test Item Value Reference Range Interpretation Comme nts POCT HBA1C (test code = 4548-4) 6.8 % 4-6 A Lab Interpretation (test code = 87090-4) Abnormal [facility] HEMOGLOBIN A1C [id number] 19:04:00 Test Item Value Reference Range Interpretation Comments POCT HBA1C (test code = 4548-4) 6.8 % 4-6 A Lab Interpretation (test code = Abnormal 08980-5) [facility] HEMOGLOBIN A1C [id number] 19:04:00 Test Item Value Reference Range Interpretation Comments POCT HBA1C (test code = 4548-4) 6.8 % 4-6 A Lab Interpretation (test code = Abnormal 02805-1) [facility] GLUCOSE (AUTOMATED)2022-05-21 23:04:10 Test Item Value Reference Range Interpretation Comments POCT GLU (test code = 6205247499) 142 mg/dL 70-110 H Lab Interpretation (test code = Abnormal 44302-3) [facility] GLUCOSE (AUTOMATED)2022-05-21 18:07:54 Test Item Value Reference Range Interpretation Comments POCT GLU (test code = 4422838273) 198 mg/dL 70-110 H Lab Interpretation (test code = Abnormal 18226-2) [facility] GLUCOSE (AUTOMATED)2022-05-21 13:54:10 Test Item Value Reference Range Interpretation Comments POCT GLU (test code = 8258225601) 141 mg/dL 70-110 H Lab Interpretation (test code = Abnormal 19990-3) [facility] GLUCOSE (AUTOMATED)2022-05-21 02:47:37 Test Item Value Reference Range Interpretation Comments POCT GLU (test code = 3171748016) 150 mg/dL 70-110 H Lab Interpretation (test code = Abnormal 01160-2) [facility]. METABOLIC PANEL ([id number])2022-05-20 23:49:17 Test Item Value Reference Range Interpretation Comments NA (test code = 139 mmol/L 135-145 9552842197) K (test code = 4.5 mmol/L 3.5-5.0 3131372858) CL (test code = 104 mmol/L 98-108 1839072149) CO2 TOTAL (test code = 25 mmol/L 23-31 9342343277) AGAP (test code = 2-16 5604133284) BUN (test code = 13 mg/dL 7-23 6045543506) GLUCOSE (test code = 228 mg/dL 70-110 H 0813877479) CREATININE (test code = 0.56 mg/dL 0.60-1.25 L 2338320868) TOTAL BILI (test code = 0.6 mg/dL 0.1-1.7 9428981397) CALCIUM (test code = 9.7 mg/dL 8.6-10.6 5474096848) T PROTEIN (test code = 7.8 g/dL 6.3-8.2 6957159878) ALBUMIN (test code = 4.4 g/dL 3.5-5.0 8041378564) ALK PHOS (test code = 132 U/L 34-122 H 4366004656) ALTv (test code = 31 U/L 5-50 1742-6) AST(SGOT) (test code = 20 U/L 13-40 4534088177) eGFR (test code = mL/min/1.73m2 2307407374) ARPITA (test code = ARPITA) Association of [...] tests). Lab Interpretation Abnormal (test code = 83138-8) [facility] WITH [id number] 23:45:35 Test Item Value Reference Range Interpretation Comments WBC (test code = See_Comment [Automated 8190-2) message] The sy stem which generated this [...] RDW-SD (test code = 45.1 fL 38.5-51.6 55657-2) RDW-CV (test code = 14.9 % 12.1-15.4 788-0) PLT (test code = See_Comment [Automated 777-3) message] The sy stem which generated this result transmitted reference range : 150 - 328 10*3/ ?L. The reference r boubacar was not used to interpret this result as normal/abnormal . MPV (test code = 10.9 fL 9.8-13.0 17123-1) IPF % (test code = 9.9 % 1.2-10.7 Platelet count 4831246748) measured by fluorescence method. NRBC/100 WBC (test See_Comment [Automat ed code = 1471121314) message] The system which generated this result transmitted reference range : 0.0 - 10.0 /100 WBCs. The refer ence range was not u sed to interpret th is result as normal/abnormal . NRBC x10^3 (test code See_Comment [Auto mated = 7603886872) message] The s ystem which generated this result transmitted reference range : 10*3/?L. The reference range was not used to interpret this result as normal/abnormal . GRAN MAT (NEUT) % 65.4 % (test code = 770-8) IMM GRAN % (test code 0.60 % = 7870860046) LYMPH % (test code = 23.1 % 736-9) MONO % (test code = 7.9 % 5905-5) EOS % (test code = 2.6 % 713-8) BASO % (test code = 0.4 % 706-2) GRAN MAT x10^3(ANC) 6.34 10*3/uL 1.99-6.95 (test code = 4194840708) IMM GRAN x10^3 (test 0.06 10*3/uL 0.00-0.06 code = 9390852474) LYMPH x10^3 (test code 2.24 10*3/uL 1.09-3.23 = 731-0) MONO x10^3 (test code 0.77 10*3/uL 0.36-1.02 = 742-7) EOS x10^3 (test code = 0.25 10*3/uL 0.06-0.53 711-2) BASO x10^3 (test code 0.04 10*3/uL 0.01-0.09 = 704-7) Lab Interpretation Abnormal (test code = 66131-1) [facility] [id number] 23:16:59 Test Item Value Reference Range Interpretation Comments LACTIC ACID (test code = 3.00 mmol/L 0.50-2.20 H 0653379508) Lab Interpretation (test code = Abnormal 75611-3) [facility] [id number] 01:28:46 Test Item Value Reference Range Interpretation [...] RDW-SD (test code = 47.6 fL 38.5-51.6 06458-0) RDW-CV (test code = 15.4 % 12.1-15.4 788-0) PLT (test code = See_Comment L [Automated 777-3) message] The sy stem which generated this result transmitted reference range : 150 - 328 10*3/ ?L. The reference r boubacar was not used to interpret this result as normal/abnormal . MPV (test code = 10.6 fL 9.8-13.0 91109-6) NRBC/100 WBC (test See_Comment [Automat ed code = 8946824076) message] The system which generated this result transmitted reference range : 0.0 - 10.0 /100 WBCs. The refer ence range was not u sed to interpret th is result as normal/abnormal . NRBC x10^3 (test code See_Comment [Auto mated = 6961001900) message] The s ystem which generated this result transmitted reference range : 10*3/?L. The reference range was not used to interpret this result as normal/abnormal . GRAN MAT (NEUT) % 70.8 % (test code = 770-8) IMM GRAN % (test code 0.50 % = 3137158619) LYMPH % (test code = 20.4 % 736-9) MONO % (test code = 5.9 % 5905-5) EOS % (test code = 2.0 % 713-8) BASO % (test code = 0.4 % 706-2) GRAN MAT x10^3(ANC) 7.23 10*3/uL 1.99-6.95 H (test code = 4689152926) IMM GRAN x10^3 (test 0.05 10*3/uL 0.00-0.06 code = 3008649316) LYMPH x10^3 (test code 2.08 10*3/uL 1.09-3.23 = 731-0) MONO x10^3 (test code 0.60 10*3/uL 0.36-1.02 = 742-7) EOS x10^3 (test code = 0.20 10*3/uL 0.06-0.53 711-2) BASO x10^3 (test code 0.04 10*3/uL 0.01-0.09 = 704-7) Lab Interpretation Abnormal (test code = 60224-6) [facility]. METABOLIC PANEL (27149)2022-05-13 01:23:44 Test Item Value Reference Range Interpretation Comments NA (test code = 141 mmol/L 135-145 8263008992) K (test code = 4.7 mmol/L 3.5-5.0 2359290811) CL (test code = 107 mmol/L 98-108 1608223250) CO2 TOTAL (test code = 23 mmol/L 23-31 6179087871) AGAP (test code = 2-16 9172136648) BUN (test code = 16 mg/dL 7-23 5074908363) GLUCOSE (test code = 144 mg/dL 70-110 H 3652675051) CREATININE (test code = 0.54 mg/dL 0.60-1.25 L 1720194608) TOTAL BILI (test code = 0.6 mg/dL 0.1-1.9 8973867429) CALCIUM (test code = 9.5 mg/dL 8.6-10.6 4039158336) T PROTEIN (test code = 7.7 g/dL 6.3-8.2 9965493604) ALBUMIN (test code = 4.4 g/dL 3.5-5.0 3538878756) ALK PHOS (test code = 101 U/L 34-122 4960864745) ALTv (test code = 28 U/L 5-50 1742-6) AST(SGOT) (test code = 20 U/L 13-40 4194332697) eGFR (test code = mL/min/1.73m2 4538869137) ARPITA (test code = ARPITA) Association of [...] tests). Lab Interpretation Abnormal (test code = 10568-2) [facility] 01:23:23 Test Item Value Reference Range Interpretation Comments LIPASE (test code = 1677532680) 99 U/L 0-220 Lab Interpretation (test code = Normal 75283-3) [facility]2022-05-06 13:16:26 Test Item Value Reference Range Interpretation Comments POCT GLU (test code = 3485851312) 162 mg/dL 70-110 H Lab Interpretation (test code = Abnormal 07727-5) [facility] GLUCOSE (AUTOMATED)2022-05-06 01:23:12 Test Item Value Reference Range Interpretation Comments POCT GLU (test code = 9277299709) 248 mg/dL 70-110 H Lab Interpretation (test code = Abnormal 39765-6) [facility] GLUCOSE (AUTOMATED)2022-05-05 21:32:18 Test Item Value Reference Range Interpretation Comments POCT GLU (test code = 6034944051) 239 mg/dL 70-110 H Lab Interpretation (test code = Abnormal 83333-4) [facility] GLUCOSE (AUTOMATED)2022-05-05 01:49:48 Test Item Value Reference Range Interpretation Comments POCT GLU (test code = 0459636918) 317 mg/dL 70-110 H Lab Interpretation (test code = Abnormal 82073-8) [facility] GLUCOSE (AUTOMATED)2022-05-04 21:38:03 Test Item Value Reference Range Interpretation Comments POCT GLU (test code = 9008695013) 139 mg/dL 70-110 H Lab Interpretation (test code = Abnormal 49667-5) [facility] GLUCOSE (AUTOMATED)2022-05-04 16:14:31 Test Item Value Reference Range Interpretation Comments POCT GLU (test code = 3584342502) 164 mg/dL 70-110 H Lab Interpretation (test code = Abnormal 24630-8) [facility] GLUCOSE (AUTOMATED)2022-05-04 12:46:40 Test Item Value Reference Range Interpretation Comments POCT GLU (test code = 0257484446) 154 mg/dL 70-110 H Lab Interpretation (test code = Abnormal 07534-0) [facility] 06:39:52 Test Item Value Reference Range Interpretation Comments LIPASE (test code = 4122832872) 216 U/L 0-220 Lab Interpretation (test code = Normal 38967-4) [facility] METABOLIC PANEL (01353)2022-05-04 06:39:52 Test Item Value Reference Range Interpretation Comments NA (test code = 139 mmol/L 135-145 3283274355) K (test code = 4.7 mmol/L 3.5-5 8169935892) CL (test code = 106 mmol/L 98-108 7203258221) CO2 TOTAL (test code = 20 mmol/L 23-31 L 3280551563) AGAP (test code = 2-16 1209791873) BUN (test code = 16 mg/dL 7-23 0744570975) GLUCOSE (test code = 224 mg/dL 70-110 H 1669615633) CREATININE (test code = 0.72 mg/dL 0.6-1.25 2626747503) TOTAL BILI (test code = 0.4 mg/dL 0.1-1.8 2983261000) CALCIUM (test code = 9.3 mg/dL 8.6-10.6 8077084141) T PROTEIN (test code = 7.2 g/dL 6.3-8.2 0736487009) ALBUMIN (test code = 4.1 g/dL 3.5-5 8458582406) ALK PHOS (test code = 118 U/L 34-122 6851786258) ALTv (test code = 46 U/L 5-50 1742-6) AST(SGOT) (test code = 18 U/L 13-40 4410259378) eGFR (test code = mL/min/1.73m2 8420902630) ARPITA (test code = ARPITA) Association of [...] tests). Lab Interpretation Abnormal (test code = 41367-4) [facility] WITH [id number] 06:28:46 Test Item Value Reference Range Interpretation Comments WBC (test code = See_Comment [Automated 1252-2) message] The sy stem which generated this result transmitted reference range : 4.20 - 10.70 10*3/?L. The reference range was not used to interpret this result as normal/abnormal . RBC (test code = See_Comment [Automated 749-8) message] The sy stem which generated this [...] RDW-SD (test code = 45.7 fL 38.5-51.6 93196-7) RDW-CV (test code = 14.8 % 12.1-15.4 788-0) PLT (test code = See_Comment H [Automated 467-3) message] The sy stem which generated this result transmitted reference range : 150 - 328 10*3/ ?L. The reference r boubacar was not used to interpret this result as normal/abnormal . MPV (test code = 11.0 fL 9.8-13 43398-7) NRBC/100 WBC (test See_Comment [Automat ed code = 7100634690) message] The system which generated this result transmitted reference range : 0.0 - 10.0 /100 WBCs. The refer ence range was not u sed to interpret th is result as normal/abnormal . NRBC x10^3 (test code See_Comment [Auto mated = 7535945007) message] The s ystem which generated this result transmitted reference range : 10*3/?L. The reference range was not used to interpret this result as normal/abnormal . GRAN MAT (NEUT) % 56.7 % (test code = 770-8) IMM GRAN % (test code 0.70 % = 9339167739) LYMPH % (test code = 31.5 % 736-9) MONO % (test code = 8.6 % 5905-5) EOS % (test code = 2.0 % 713-8) BASO % (test code = 0.5 % 706-2) GRAN MAT x10^3(ANC) 4.84 10*3/uL 1.99-6.95 (test code = 5374542665) IMM GRAN x10^3 (test 0.06 10*3/uL 0-0.06 code = 1248261443) LYMPH x10^3 (test code 2.69 10*3/uL 1.09-3.23 = 731-0) MONO x10^3 (test code 0.73 10*3/uL 0.36-1.02 = 742-7) EOS x10^3 (test code = 0.17 10*3/uL 0.06-0.53 711-2) BASO x10^3 (test code 0.04 10*3/uL 0.01-0.09 = 704-7) Lab Interpretation Abnormal (test code = 94103-4) [facility] CULTURE(AEROBIC/ANAEROBIC)2022-02-23 20:34:19 Test Item Value Reference Range Interpretation Comments TISSUE CULTURE (test No aerobic/anaerobic code = 11096-1) organisms isolated Gram stain (test code No PMNs or Mononuclear = 664-3) cells observed [facility] GLUCOSE (AUTOMATED)2022-02-23 18:36:41 Test Item Value Reference Range Interpretation Comments POCT GLU (test code = 1419031678) 162 mg/dL 70-110 H Lab Interpretation (test code = Abnormal 08465-3) [facility] GLUCOSE (AUTOMATED)2022-02-23 14:48:29 Test Item Value Reference Range Interpretation Comments POCT GLU (test code = 5757713982) 191 mg/dL 70-110 H Lab Interpretation (test code = Abnormal 16091-0) [facility] GLUCOSE (AUTOMATED)2022-02-23 10:56:47 Test Item Value Reference Range Interpretation Comments POCT GLU (test code = 5715800375) 242 mg/dL 70-110 H Lab Interpretation (test code = Abnormal 74644-7) [facility] GLUCOSE (AUTOMATED)2022-02-23 05:47:30 Test Item Value Reference Range Interpretation Comments POCT GLU (test code = 9552172696) 327 mg/dL 70-110 H Lab Interpretation (test code = Abnormal 52275-3) [facility] GLUCOSE (AUTOMATED)2022-02-23 02:18:34 Test Item Value Reference Range Interpretation Comments POCT GLU (test code = 4695961400) 309 mg/dL 70-110 H Lab Interpretation (test code = Abnormal 18637-6) [facility] GLUCOSE (AUTOMATED)2022-02-22 23:17:38 Test Item Value Reference Range Interpretation Comments POCT GLU (test code = 0057593765) 260 mg/dL 70-110 H Lab Interpretation (test code = Abnormal 19273-2) [facility] GLUCOSE (AUTOMATED)2022-02-22 18:33:41 Test Item Value Reference Range Interpretation Comments POCT GLU (test code = 8809163416) 264 mg/dL 70-110 H Lab Interpretation (test code = Abnormal 53673-5) [facility] GLUCOSE (AUTOMATED)2022-02-22 15:02:50 Test Item Value Reference Range Interpretation Comments POCT GLU (test code = 9662099766) 219 mg/dL 70-110 H Lab Interpretation (test code = Abnormal 95331-1) [facility] METABOLIC PANEL (NA, K, CL, CO2, GLUCOSE, BUN, CREATININE, CA)2022-02-22 10:44:27 Test Item Value Reference Range Interpretation Comments NA (test code = 132 mmol/L 135-145 L 2631271845) K (test code = 4.4 mmol/L 3.5-5 3928502582) CL (test code = 103 mmol/L 98-108 8896325535) CO2 TOTAL (test code = 25 mmol/L 23-31 3971959265) AGAP (test code = 2-16 8541815426) BUN (test code = 15 mg/dL 7-23 2044442172) GLUCOSE (test code = 262 mg/dL 70-110 H 3498399867) CREATININE (test code = 0.52 mg/dL 0.6-1.25 L 6388634506) CALCIUM (test code = 8.3 mg/dL 8.6-10.6 L 6500257221) eGFR (test code = mL/min/1.73m2 3476322728) ARPITA (test code = ARPITA) Association of [...] tests). Lab Interpretation Abnormal (test code = 34627-1) [facility] WITH [id number] 10:22:05 Test Item Value Reference Range Interpretation [...] RDW-SD (test code = 49.8 fL 38.5-51.6 45368-5) RDW-CV (test code = 15.9 % 12.1-15.4 H 788-0) PLT (test code = See_Comment H [Automated 777-3) message] The sy stem which generated this result transmitted reference range : 150 - 328 10*3/ ?L. The reference r boubacar was not used to interpret this result as normal/abnormal . MPV (test code = 10.4 fL 9.8-13 26884-3) NRBC/100 WBC (test See_Comment [Automat ed code = [id number]) message] The system which generated this result transmitted reference range : 0.0 - 10.0 /100 WBCs. The refer ence range was not u sed to interpret th is result as normal/abnormal . NRBC x10^3 (test code See_Comment [Auto mated = [id number]) message] The s ystem which generated this result transmitted reference range : 10*3/?L. The reference range was not used to interpret this result as normal/abnormal . GRAN MAT (NEUT) % 59.8 % (test code = 770-8) IMM GRAN % (test code 1.20 % = [id number]) LYMPH % (test code = 28.2 % 736-9) MONO % (test code = 8.4 % 5905-5) EOS % (test code = 2.2 % 713-8) BASO % (test code = 0.2 % 706-2) GRAN MAT x10^3(ANC) 5.34 10*3/uL 1.99-6.95 (test code = 1715759586) IMM GRAN x10^3 (test 0.11 10*3/uL 0-0.06 H code = 7036383096) LYMPH x10^3 (test code 2.52 10*3/uL 1.09-3.23 = 731-0) MONO x10^3 (test code 0.75 10*3/uL 0.36-1.02 = 742-7) EOS x10^3 (test code = 0.20 10*3/uL 0.06-0.53 711-2) BASO x10^3 (test code 0.01-0.09 = 704-7) Lab Interpretation Abnormal (test code = 14585-9) [facility] GLUCOSE (AUTOMATED)2022-02-22 02:20:10 Test Item Value Reference Range Interpretation Comments POCT GLU (test code = 2488382341) 281 mg/dL 70-110 H Lab Interpretation (test code = Abnormal 18827-1) [facility] GLUCOSE (AUTOMATED)2022-02-21 22:27:37 Test Item Value Reference Range Interpretation Comments POCT GLU (test code = 8977697029) 187 mg/dL 70-110 H Lab Interpretation (test code = Abnormal 23175-1) [facility] GLUCOSE (AUTOMATED)2022-02-21 19:00:16 Test Item Value Reference Range Interpretation Comments POCT GLU (test code = 6901156690) 167 mg/dL 70-110 H Lab Interpretation (test code = Abnormal 97475-5) [facility] GLUCOSE (AUTOMATED)2022-02-21 19:00:16 Test Item Value Reference Range Interpretation Comments POCT GLU (test code = 1935096470) 167 mg/dL 70-110 H Lab Interpretation (test code = Abnormal 20006-8) [facility] GLUCOSE (AUTOMATED)2022-02-21 15:22:04 Test Item Value Reference Range Interpretation Comments POCT GLU (test code = 6525360980) 138 mg/dL 70-110 H Lab Interpretation (test code = Abnormal 74684-5) [facility] GLUCOSE (AUTOMATED)2022-02-21 15:22:04 Test Item Value Reference Range Interpretation Comments POCT GLU (test code = 9917782806) 138 mg/dL 70-110 H Lab Interpretation (test code = Abnormal 21949-1) [facility] GLUCOSE (AUTOMATED)2022-02-21 02:45:31 Test Item Value Reference Range Interpretation Comments POCT GLU (test code = 8204981198) 142 mg/dL 70-110 H Lab Interpretation (test code = Abnormal 88092-6) [facility] GLUCOSE (AUTOMATED)2022-02-21 02:45:31 Test Item Value Reference Range Interpretation Comments POCT GLU (test code = 3480045131) 142 mg/dL 70-110 H Lab Interpretation (test code = Abnormal 63435-4) [facility] GLUCOSE (AUTOMATED)2022-02-20 22:04:41 Test Item Value Reference Range Interpretation Comments POCT GLU (test code = 6945890865) 260 mg/dL 70-110 H Lab Interpretation (test code = Abnormal 16007-6) [facility] GLUCOSE (AUTOMATED)2022-02-20 22:04:41 Test Item Value Reference Range Interpretation Comments POCT GLU (test code = 8967788877) 260 mg/dL 70-110 H Lab Interpretation (test code = Abnormal 45126-1) [facility] Test Item Value Reference Range Interpretation Comments Blood Culture-Aerobic No organisms No growth Previo us (test code = 59471-5) isolated prelim inary verified result was Culture [...] Culture-Anaerobic isolated preliminar y (test code = 18368-0) verifi ed result was Culture In Progress [...] CDT Lab Interpretation Normal (test code = 59052-2) [facility] Culture - Peripheral [id number] 21:01:35 Test Item Value Reference Range Interpretation Comments Blood Culture-Aerobic No organisms No growth Previo us (test code = 75633-9) isolated prelim inary verified result was Culture [...] Culture-Anaerobic isolated preliminar y (test code = 21640-0) verifi ed result was Culture In Progress [...] CDT Lab Interpretation Normal (test code = 42373-7) [facility] Culture - Peripheral Vein # 21:01:35 Test Item Value Reference Range Interpretation Comments Blood Culture-Aerobic No organisms No growth Previo us (test code = 25773-2) isolated prelim inary verified result was Culture [...] Culture-Anaerobic isolated preliminar y (test code = 12624-5) verifi ed result was Culture In Progress [...] CDT Lab Interpretation Normal (test code = 97537-7) [facility] Culture - Peripheral [id number] 21:01:35 Test Item Value Reference Range Interpretation Comments Blood Culture-Aerobic No organisms No growth Previo us (test code = 83959-4) isolated prelim inary verified result was Culture [...] Culture-Anaerobic isolated preliminar y (test code = 84472-2) verifi ed result was Culture In Progress [...] CDT Lab Interpretation Normal (test code = 92971-5) [facility] GLUCOSE (AUTOMATED)2022-02-20 14:13:49 Test Item Value Reference Range Interpretation Comments POCT GLU (test code = 5486256983) 176 mg/dL 70-110 H Lab Interpretation (test code = Abnormal 63056-0) [facility] 14:13:49 Test Item Value Reference Range Interpretation Comments POCT GLU (test code = 0456122589) 176 mg/dL 70-110 H Lab Interpretation (test code = Abnormal 06261-0) [facility] GLUCOSE (AUTOMATED)2022-02-20 02:30:54 Test Item Value Reference Range Interpretation Comments POCT GLU (test code = 2666329558) 113 mg/dL 70-110 H Lab Interpretation (test code = Abnormal 09127-4) [facility] GLUCOSE (AUTOMATED)2022-02-20 02:30:54 Test Item Value Reference Range Interpretation Comments POCT GLU (test code = 5165581319) 113 mg/dL 70-110 H Lab Interpretation (test code = Abnormal 58103-0) [facility] GLUCOSE (AUTOMATED)2022-02-19 23:41:12 Test Item Value Reference Range Interpretation Comments POCT GLU (test code = 9882460327) 135 mg/dL 70-110 H Lab Interpretation (test code = Abnormal 96201-0) [facility] GLUCOSE (AUTOMATED)2022-02-19 23:41:12 Test Item Value Reference Range Interpretation Comments POCT GLU (test code = 7259852398) 135 mg/dL 70-110 H Lab Interpretation (test code = Abnormal 45482-8) [facility] GLUCOSE (AUTOMATED)2022-02-19 17:13:18 Test Item Value Reference Range Interpretation Comments POCT GLU (test code = 9649911551) 238 mg/dL 70-110 H Lab Interpretation (test code = Abnormal 93832-7) [facility] GLUCOSE (AUTOMATED)2022-02-19 17:13:18 Test Item Value Reference Range Interpretation Comments POCT GLU (test code = 8939491084) 238 mg/dL 70-110 H Lab Interpretation (test code = Abnormal 44739-7) [facility] GLUCOSE (AUTOMATED)2022-02-19 17:13:18 Test Item Value Reference Range Interpretation Comments POCT GLU (test code = 2609597479) 238 mg/dL 70-110 H Lab Interpretation (test code = Abnormal 67048-4) [facility]-REACTIVE [id number] 16:50:53 Test Item Value Reference Range Interpretation Comments CRP (test code = 0.9 mg/dL See_Comment H [Automated message] 3067564427) The system [employer] generated this result transmit lester reference range : <=0.8. The refe rence range was not u sed to interpret th is result as normal/abnormal . Lab Interpretation (test Abnormal code = 39476-2) [facility]-REACTIVE [id number] 16:50:53 Test Item Value Reference Range Interpretation Comments CRP (test code = 0.9 mg/dL See_Comment H [Automated message] 0207590574) The system [employer] generated this result transmit lester reference range : <=0.8. The refe rence range was not u sed to interpret th is result as normal/abnormal . Lab Interpretation (test Abnormal code = 62635-0) [facility]-REACTIVE [id number] 16:50:53 Test Item Value Reference Range Interpretation Comments CRP (test code = 0.9 mg/dL See_Comment H [Automated message] 2810027070) The system [employer] generated this result transmit lester reference range : <=0.8. The refe rence range was not u sed to interpret th is result as normal/abnormal . Lab Interpretation (test Abnormal code = 01451-9) [facility] GLUCOSE (AUTOMATED)2022-02-19 15:55:49 Test Item Value Reference Range Interpretation Comments POCT GLU (test code = 4305705438) 209 mg/dL 70-110 H Lab Interpretation (test code = Abnormal 38891-7) [facility] GLUCOSE (AUTOMATED)2022-02-19 15:55:49 Test Item Value Reference Range Interpretation Comments POCT GLU (test code = 2396990141) 209 mg/dL 70-110 H Lab Interpretation (test code = Abnormal 24519-4) [facility] GLUCOSE (AUTOMATED)2022-02-19 00:58:44 Test Item Value Reference Range Interpretation Comments POCT GLU (test code = 2668303173) 300 mg/dL 70-110 H Lab Interpretation (test code = Abnormal 66331-8) [facility] GLUCOSE (AUTOMATED)2022-02-19 00:58:44 Test Item Value Reference Range Interpretation Comments POCT GLU (test code = 8735990715) 300 mg/dL 70-110 H Lab Interpretation (test code = Abnormal 23068-5) [facility] GLUCOSE (AUTOMATED)2022-02-18 21:28:03 Test Item Value Reference Range Interpretation Comments POCT GLU (test code = 3500411980) 119 mg/dL 70-110 H Lab Interpretation (test code = Abnormal 22846-3) [facility] GLUCOSE (AUTOMATED)2022-02-18 21:28:03 Test Item Value Reference Range Interpretation Comments POCT GLU (test code = 5394395644) 119 mg/dL 70-110 H Lab Interpretation (test code = Abnormal 18573-6) [facility] GLUCOSE (AUTOMATED)2022-02-18 16:51:05 Test Item Value Reference Range Interpretation Comments POCT GLU (test code = 5788802887) 275 mg/dL 70-110 H Lab Interpretation (test code = Abnormal 96427-4) [facility] GLUCOSE (AUTOMATED)2022-02-18 16:51:05 Test Item Value Reference Range Interpretation Comments POCT GLU (test code = 6711348608) 275 mg/dL 70-110 H Lab Interpretation (test code = Abnormal 26120-6) [facility] METABOLIC PANEL (NA, K, CL, CO2, GLUCOSE, BUN, CREATININE, CA)2022-02-18 15:51:39 Test Item Value Reference Range Interpretation Comments NA (test code = 136 mmol/L 135-145 1394149238) K (test code = 3.7 mmol/L 3.5-5 7623281701) CL (test code = 111 mmol/L 98-108 H 0883708620) CO2 TOTAL (test code = 21 mmol/L 23-31 L 5419390404) AGAP (test code = 2-16 6378578197) BUN (test code = 9 mg/dL 7-23 2141339430) GLUCOSE (test code = 278 mg/dL 70-110 H 3101865790) CREATININE (test code = 0.46 mg/dL 0.6-1.25 L 7551382574) CALCIUM (test code = 8.2 mg/dL 8.6-10.6 L 1681279148) eGFR (test code = mL/min/1.73m2 7546924737) ARPITA (test code = ARPITA) Association of [...] tests). Lab Interpretation Abnormal (test code = 49446-3) [facility] (NA, K, CL, CO2, GLUCOSE, BUN, CREATININE, CA)2022-02-18 15:51:39 Test Item Value Reference Range Interpretation Comments NA (test code = 136 mmol/L 135-145 2511341665) K (test code = 3.7 mmol/L 3.5-5 3531432923) CL (test code = 111 mmol/L 98-108 H 9522149446) CO2 TOTAL (test code = 21 mmol/L 23-31 L 4491097117) AGAP (test code = 2-16 5765936277) BUN (test code = 9 mg/dL 7-23 4318277902) GLUCOSE (test code = 278 mg/dL 70-110 H 7703011941) CREATININE (test code = 0.46 mg/dL 0.6-1.25 L 6656661238) CALCIUM (test code = 8.2 mg/dL 8.6-10.6 L 8774707665) eGFR (test code = mL/min/1.73m2 1304828000) ARPITA (test code = ARPITA) Association of [...] tests). Lab Interpretation Abnormal (test code = 73730-0) [facility] GLUCOSE (AUTOMATED)2022-02-18 12:36:29 Test Item Value Reference Range Interpretation Comments POCT GLU (test code = 8562544891) 276 mg/dL 70-110 H Lab Interpretation (test code = Abnormal 50038-9) [facility] GLUCOSE (AUTOMATED)2022-02-18 12:36:29 Test Item Value Reference Range Interpretation Comments POCT GLU (test code = 2327963486) 276 mg/dL 70-110 H Lab Interpretation (test code = Abnormal 01722-9) [facility] GLUCOSE (AUTOMATED)2022-02-18 01:29:51 Test Item Value Reference Range Interpretation Comments POCT GLU (test code = 5532900898) 289 mg/dL 70-110 H Lab Interpretation (test code = Abnormal 63855-1) [facility] GLUCOSE (AUTOMATED)2022-02-18 01:29:51 Test Item Value Reference Range Interpretation Comments POCT GLU (test code = 6526453342) 289 mg/dL 70-110 H Lab Interpretation (test code = Abnormal 18043-7) [facility] GLUCOSE (AUTOMATED)2022-02-17 21:24:38 Test Item Value Reference Range Interpretation Comments POCT GLU (test code = 7490532506) 173 mg/dL 70-110 H Lab Interpretation (test code = Abnormal 80114-3) [facility] GLUCOSE (AUTOMATED)2022-02-17 21:24:38 Test Item Value Reference Range Interpretation Comments POCT GLU (test code = 6995214930) 173 mg/dL 70-110 H Lab Interpretation (test code = Abnormal 21673-9) [facility] GLUCOSE (AUTOMATED)2022-02-17 16:50:49 Test Item Value Reference Range Interpretation Comments POCT GLU (test code = 3364825410) 279 mg/dL 70-110 H Lab Interpretation (test code = Abnormal 63598-8) [facility] GLUCOSE (AUTOMATED)2022-02-17 16:50:49 Test Item Value Reference Range Interpretation Comments POCT GLU (test code = 0571306290) 279 mg/dL 70-110 H Lab Interpretation (test code = Abnormal 64739-3) [facility] GLUCOSE (AUTOMATED)2022-02-17 13:31:23 Test Item Value Reference Range Interpretation Comments POCT GLU (test code = 1279318829) 281 mg/dL 70-110 H Lab Interpretation (test code = Abnormal 00684-0) [facility] GLUCOSE (AUTOMATED)2022-02-17 13:31:23 Test Item Value Reference Range Interpretation Comments POCT GLU (test code = 7412027667) 281 mg/dL 70-110 H Lab Interpretation (test code = Abnormal 35790-7) [facility] 10:02:35 Test Item Value Reference Range Interpretation Comments POCT GLU (test code = 9962306477) 339 mg/dL 70-110 H Lab Interpretation (test code = Abnormal 94001-9) [facility] 10:02:35 Test Item Value Reference Range Interpretation Comments POCT GLU (test code = 2985984168) 339 mg/dL 70-110 H Lab Interpretation (test code = Abnormal 13370-6) [facility]17 06:33:22 Test Item Value Reference Range Interpretation Comments POCT GLU (test code = 7151449545) 295 mg/dL 70-110 H Lab Interpretation (test code = Abnormal 65548-5) [facility] GLUCOSE (AUTOMATED)2022-02-17 06:33:22 Test Item Value Reference Range Interpretation Comments POCT GLU (test code = 1048825594) 295 mg/dL 70-110 H Lab Interpretation (test code = Abnormal 43067-3) [facility] GLUCOSE (AUTOMATED)2022-02-17 01:54:18 Test Item Value Reference Range Interpretation Comments POCT GLU (test code = 0327035731) 258 mg/dL 70-110 H Lab Interpretation (test code = Abnormal 73733-9) [facility] GLUCOSE (AUTOMATED)2022-02-17 01:54:18 Test Item Value Reference Range Interpretation Comments POCT GLU (test code = 0604250268) 258 mg/dL 70-110 H Lab Interpretation (test code = Abnormal 43684-6) [facility] GLUCOSE (AUTOMATED)2022-02-16 23:03:09 Test Item Value Reference Range Interpretation Comments POCT GLU (test code = 0582756011) 286 mg/dL 70-110 H Lab Interpretation (test code = Abnormal 13785-8) [facility] 23:03:09 Test Item Value Reference Range Interpretation Comments POCT GLU (test code = 9458737200) 286 mg/dL 70-110 H Lab Interpretation (test code = Abnormal 51228-5) [facility] GLUCOSE (AUTOMATED)2022-02-16 20:48:08 Test Item Value Reference Range Interpretation Comments POCT GLU (test code = 1416677123) 249 mg/dL 70-110 H Lab Interpretation (test code = Abnormal 56417-9) [facility] GLUCOSE (AUTOMATED)2022-02-16 20:48:08 Test Item Value Reference Range Interpretation Comments POCT GLU (test code = 8301256171) 249 mg/dL 70-110 H Lab Interpretation (test code = Abnormal 89403-1) [facility] [id number] 17:01:47 Test Item Value Reference Range Interpretation Comments BOH (test code = 1.0 mmol/L 3361394865) ARPITA (test code = Normal Ranges: ? ? ARPITA) Nonfasting ? Less than 0.1 mmol/L ? ? Overnight Fast ? ? ? Less than 0.4 mmol/L ? ? Fasting (1-2 weeks) ?6-8 mmol/L Test developed and characteristics determined by [facility] Laboratory Services. [facility] [id number] 17:01:47 Test Item Value Reference Range Interpretation Comments BOH (test code = 1.0 mmol/L 5411533650) ARPITA (test code = Normal Ranges: ? ? ARPITA) Nonfasting ? Less than 0.1 mmol/L ? ? Overnight Fast ? ? ? Less than 0.4 mmol/L ? ? Fasting (1-2 weeks) ?6-8 mmol/L Test developed and characteristics determined by [facility] Laboratory Services. [facility] [id number] 17:01:47 Test Item Value Reference Range Interpretation Comments BOH (test code = 1.0 mmol/L 4816379707) ARPITA (test code = Normal Ranges: ? ? ARPITA) Nonfasting ? Less than 0.1 mmol/L ? ? Overnight Fast ? ? ? Less than 0.4 mmol/L ? ? Fasting (1-2 weeks) ?6-8 mmol/L Test developed and characteristics determined by [facility] Laboratory Services. [facility] GLUCOSE (AUTOMATED)2022-02-16 16:42:59 Test Item Value Reference Range Interpretation Comments POCT GLU (test code = 4057703099) 264 mg/dL 70-110 H Lab Interpretation (test code = Abnormal 94707-5) [facility] 16:42:59 Test Item Value Reference Range Interpretation Comments POCT GLU (test code = 8948109315) 264 mg/dL 70-110 H Lab Interpretation (test code = Abnormal 61107-6) [facility] Metabolic Panel (Na, K, Cl, CO2, Glucose, BUN, Creatinine, Ca)2022-02-16 16:16:20 Test Item Value Reference Range Interpretation Comments NA (test code = 137 mmol/L 135-145 2576530943) K (test code = 3.5 mmol/L 3.5-5 6537466784) CL (test code = 115 mmol/L 98-108 H 3900854910) CO2 TOTAL (test code = 17 mmol/L 23-31 L 1986280733) AGAP (test code = 2-16 9521756975) BUN (test code = 5 mg/dL 7-23 L 0114315238) GLUCOSE (test code = 271 mg/dL 70-110 H 2406523834) CREATININE (test code = 0.45 mg/dL 0.6-1.25 L 7435446714) CALCIUM (test code = 8.5 mg/dL 8.6-10.6 L 3394259786) eGFR (test code = mL/min/1.73m2 6950120391) ARPITA (test code = ARPITA) Association of [...] tests). Lab Interpretation Abnormal (test code = 55615-1) [facility] Metabolic Panel (Na, K, Cl, CO2, Glucose, BUN, Creatinine, Ca)2022-02-16 16:16:20 Test Item Value Reference Range Interpretation Comments NA (test code = 137 mmol/L 135-145 1212612862) K (test code = 3.5 mmol/L 3.5-5 0997904111) CL (test code = 115 mmol/L 98-108 H 0294059362) CO2 TOTAL (test code = 17 mmol/L 23-31 L 5822550790) AGAP (test code = 2-16 6044786051) BUN (test code = 5 mg/dL 7-23 L 1677810033) GLUCOSE (test code = 271 mg/dL 70-110 H 0544922710) CREATININE (test code = 0.45 mg/dL 0.6-1.25 L 4390861702) CALCIUM (test code = 8.5 mg/dL 8.6-10.6 L 1543544646) eGFR (test code = mL/min/1.73m2 9552162376) ARPITA (test code = ARPITA) Association of [...] tests). Lab Interpretation Abnormal (test code = 05152-0) [facility] GLUCOSE (AUTOMATED)2022-02-16 14:21:27 Test Item Value Reference Range Interpretation Comments POCT GLU (test code = 8496172234) 286 mg/dL 70-110 H Lab Interpretation (test code = Abnormal 37120-7) [facility] GLUCOSE (AUTOMATED)2022-02-16 14:21:27 Test Item Value Reference Range Interpretation Comments POCT GLU (test code = 4312774400) 286 mg/dL 70-110 H Lab Interpretation (test code = Abnormal 56929-9) [facility] DNA [id number] 13:29:25 Test Item Value Reference Range Interpretation Comments Coagulase Negative Positive Negative, See A Staphylococcus (test Comment/Narrative code = 37578-0) ARPITA (test code = ARPITA) Coagulase negative [...] contact the Antimicrobial Stewardship Program with questions.Pager: ?[phone] Testing included eleven identification and three resistance marker targets. Lab Interpretation Abnormal (test code = 15394-2) [facility] POSITIVE BLOOD PATHOGENS DNA [id number] 13:29:25 Test Item Value Reference Range Interpretation Comments Coagulase Negative Positive Negative, See A Staphylococcus (test Comment/Narrative code = 35634-5) ARPITA (test code = ARPITA) Coagulase negative [...] contact the Antimicrobial Stewardship Program with questions.Pager: ?[phone] Testing included eleven identification and three resistance marker targets. Lab Interpretation Abnormal (test code = 47469-1) [facility] POSITIVE BLOOD PATHOGENS DNA [id number] 13:29:25 Test Item Value Reference Range Interpretation Comments Coagulase Negative Positive Negative, See A Staphylococcus (test Comment/Narrative code = 44328-5) ARPITA (test code = ARPITA) Coagulase negative [...] contact the Antimicrobial Stewardship Program with questions.Pager: ?[phone] Testing included eleven identification and three resistance marker targets. Lab Interpretation Abnormal (test code = 59465-8) [facility] GLUCOSE (AUTOMATED)2022-02-16 13:03:22 Test Item Value Reference Range Interpretation Comments POCT GLU (test code = 0633776969) 307 mg/dL 70-110 H Lab Interpretation (test code = Abnormal 71188-2) [facility] GLUCOSE (AUTOMATED)2022-02-16 13:03:22 Test Item Value Reference Range Interpretation Comments POCT GLU (test code = 7576125525) 307 mg/dL 70-110 H Lab Interpretation (test code = Abnormal 32706-1) [facility] GLUCOSE (AUTOMATED)2022-02-16 09:05:19 Test Item Value Reference Range Interpretation Comments POCT GLU (test code = 3183357198) 326 mg/dL 70-110 H Lab Interpretation (test code = Abnormal 73885-2) [facility] GLUCOSE (AUTOMATED)2022-02-16 09:05:19 Test Item Value Reference Range Interpretation Comments POCT GLU (test code = 6112934786) 326 mg/dL 70-110 H Lab Interpretation (test code = Abnormal 50055-1) [facility] GLUCOSE (AUTOMATED)2022-02-16 05:46:58 Test Item Value Reference Range Interpretation Comments POCT GLU (test code = 8924482307) 341 mg/dL 70-110 H Lab Interpretation (test code = Abnormal 06922-3) [facility] GLUCOSE (AUTOMATED)2022-02-16 05:46:58 Test Item Value Reference Range Interpretation Comments POCT GLU (test code = 2849397040) 341 mg/dL 70-110 H Lab Interpretation (test code = Abnormal 87116-9) [facility] GLUCOSE (AUTOMATED)2022-02-16 01:37:20 Test Item Value Reference Range Interpretation Comments POCT GLU (test code = 6874686497) 196 mg/dL 70-110 H Lab Interpretation (test code = Abnormal 16489-7) [facility] GLUCOSE (AUTOMATED)2022-02-16 01:37:20 Test Item Value Reference Range Interpretation Comments POCT GLU (test code = 6024946314) 196 mg/dL 70-110 H Lab Interpretation (test code = Abnormal 31959-1) [facility] GLUCOSE (AUTOMATED)2022-02-15 23:44:41 Test Item Value Reference Range Interpretation Comments POCT GLU (test code = 5905466049) 138 mg/dL 70-110 H Lab Interpretation (test code = Abnormal 19273-7) [facility] GLUCOSE (AUTOMATED)2022-02-15 23:44:41 Test Item Value Reference Range Interpretation Comments POCT GLU (test code = 0025460830) 138 mg/dL 70-110 H Lab Interpretation (test code = Abnormal 10246-2) [facility] Metabolic Panel (Na, K, Cl, CO2, Glucose, BUN, Creatinine, Ca)2022-02-15 23:12:45 Test Item Value Reference Range Interpretation Comments NA (test code = 138 mmol/L 135-145 4238229873) K (test code = 3.7 mmol/L 3.5-5 9747973177) CL (test code = 115 mmol/L 98-108 H 6519038489) CO2 TOTAL (test code = 17 mmol/L 23-31 L 7931006114) AGAP (test code = 2-16 1524997113) BUN (test code = 5 mg/dL 7-23 L 5039714556) GLUCOSE (test code = 86 mg/dL 70-110 5114762282) CREATININE (test code = 0.46 mg/dL 0.6-1.25 L 0794434719) CALCIUM (test code = 8.4 mg/dL 8.6-10.6 L 5153715524) eGFR (test code = mL/min/1.73m2 3567406121) ARPITA (test code = ARPITA) Association of [...] tests). Lab Interpretation Abnormal (test code = 32081-6) [facility] Metabolic Panel (Na, K, Cl, CO2, Glucose, BUN, Creatinine, Ca)2022-02-15 23:12:45 Test Item Value Reference Range Interpretation Comments NA (test code = 138 mmol/L 135-145 9973124432) K (test code = 3.7 mmol/L 3.5-5 8703758154) CL (test code = 115 mmol/L 98-108 H 6076174174) CO2 TOTAL (test code = 17 mmol/L 23-31 L 5622051994) AGAP (test code = 2-16 5445188693) BUN (test code = 5 mg/dL 7-23 L 1302892484) GLUCOSE (test code = 86 mg/dL 70-110 4116621695) CREATININE (test code = 0.46 mg/dL 0.6-1.25 L 7651797983) CALCIUM (test code = 8.4 mg/dL 8.6-10.6 L 1495034138) eGFR (test code = mL/min/1.73m2 7880929895) ARPITA (test code = ARPITA) Association of [...] tests). Lab Interpretation Abnormal (test code = 25800-4) [facility] GLUCOSE (AUTOMATED)2022-02-15 22:38:52 Test Item Value Reference Range Interpretation Comments POCT GLU (test code = 6027475090) 94 mg/dL 70-110 Lab Interpretation (test code = Normal 10099-9) [facility] GLUCOSE (AUTOMATED)2022-02-15 22:38:52 Test Item Value Reference Range Interpretation Comments POCT GLU (test code = 2851311469) 94 mg/dL 70-110 Lab Interpretation (test code = Normal 32299-6) [facility] GLUCOSE (AUTOMATED)2022-02-15 21:31:35 Test Item Value Reference Range Interpretation Comments POCT GLU (test code = 3332454254) 119 mg/dL 70-110 H Lab Interpretation (test code = Abnormal 86434-8) [facility] GLUCOSE (AUTOMATED)2022-02-15 21:31:35 Test Item Value Reference Range Interpretation Comments POCT GLU (test code = 2165738863) 119 mg/dL 70-110 H Lab Interpretation (test code = Abnormal 97638-0) [facility] GLUCOSE (AUTOMATED)2022-02-15 20:06:03 Test Item Value Reference Range Interpretation Comments POCT GLU (test code = 3544123670) 177 mg/dL 70-110 H Lab Interpretation (test code = Abnormal 37863-7) [facility] GLUCOSE (AUTOMATED)2022-02-15 20:06:03 Test Item Value Reference Range Interpretation Comments POCT GLU (test code = 1043258094) 177 mg/dL 70-110 H Lab Interpretation (test code = Abnormal 34320-9) [facility] GLUCOSE (AUTOMATED)2022-02-15 19:07:20 Test Item Value Reference Range Interpretation Comments POCT GLU (test code = 3248477987) 185 mg/dL 70-110 H Lab Interpretation (test code = Abnormal 21325-3) [facility] GLUCOSE (AUTOMATED)2022-02-15 19:07:20 Test Item Value Reference Range Interpretation Comments POCT GLU (test code = 4797172454) 185 mg/dL 70-110 H Lab Interpretation (test code = Abnormal 82802-8) [id number]:53 Test Item Value Reference Interpretation Comments Range TROPONIN I (test 0.000 ng/mL See_Comment [Automated code = 1140379202) message] The system which generated this result [...] biotin. Lab Interpretation Normal (test code = 99140-4) [facility] [id number] 18:44:53 Test Item Value Reference Interpretation Comments Range TROPONIN I (test 0.000 ng/mL See_Comment [Automated code = 1925437828) message] The system which generated this result [...] biotin. Lab Interpretation Normal (test code = 05926-0) [facility] [id number] 18:44:53 Test Item Value Reference Interpretation Comments Range TROPONIN I (test 0.000 ng/mL See_Comment [Automated code = 7496466577) message] The system which generated this result [...] biotin. Lab Interpretation Normal (test code = 17631-9) [facility] Metabolic Panel (Na, K, Cl, CO2, Glucose, BUN, Creatinine, Ca)2022-02-15 18:27:49 Test Item Value Reference Range Interpretation Comments NA (test code = 138 mmol/L 135-145 4511163461) K (test code = 3.7 mmol/L 3.5-5 0084332025) CL (test code = 115 mmol/L 98-108 H 1111372155) CO2 TOTAL (test code = 16 mmol/L 23-31 L 3569402599) AGAP (test code = 2-16 2558549576) BUN (test code = 7 mg/dL 7-23 3931596946) GLUCOSE (test code = 195 mg/dL 70-110 H 0144524430) CREATININE (test code = 0.52 mg/dL 0.6-1.25 L 9575586401) CALCIUM (test code = 8.2 mg/dL 8.6-10.6 L 1528263635) eGFR (test code = mL/min/1.73m2 4008084090) ARPITA (test code = ARPITA) Association of [...] tests). Lab Interpretation Abnormal (test code = 85609-1) [facility] Metabolic Panel (Na, K, Cl, CO2, Glucose, BUN, Creatinine, Ca)2022-02-15 18:27:49 Test Item Value Reference Range Interpretation Comments NA (test code = 138 mmol/L 135-145 0860717238) K (test code = 3.7 mmol/L 3.5-5 6862134018) CL (test code = 115 mmol/L 98-108 H 1312564807) CO2 TOTAL (test code = 16 mmol/L 23-31 L 8030904332) AGAP (test code = 2-16 3724588993) BUN (test code = 7 mg/dL 7-23 1669743137) GLUCOSE (test code = 195 mg/dL 70-110 H 5288290272) CREATININE (test code = 0.52 mg/dL 0.6-1.25 L 1855961520) CALCIUM (test code = 8.2 mg/dL 8.6-10.6 L 0313818427) eGFR (test code = mL/min/1.73m2 0600551432) ARPITA (test code = ARPITA) Association of [...] tests). Lab Interpretation Abnormal (test code = 34568-5) [id number] 17:43:01 Test Item Value Reference Range Interpretation Comments BOH (test code = 3.3 mmol/L 8291182614) ARPITA (test code = Normal Ranges: ? ? ARPITA) Nonfasting ? Less than 0.1 mmol/L ? ? Overnight Fast ? ? ? Less than 0.4 mmol/L ? ? Fasting (1-2 weeks) ?6-8 mmol/L Test developed and characteristics determined by [facility] Laboratory Services. [facility] CenterBetahydroxy-Ayjfspnv3808-44-01 17:43:01 Test Item Value Reference Range Interpretation Comments BOH (test code = 3.3 mmol/L 9420494438) ARPITA (test code = Normal Ranges: ? ? ARPITA) Nonfasting ? Less than 0.1 mmol/L ? ? Overnight Fast ? ? ? Less than 0.4 mmol/L ? ? Fasting (1-2 weeks) ?6-8 mmol/L Test developed and characteristics determined by [facility] Laboratory Services. [facility]2022-[facility]-15 17:29:05 Test Item Value Reference Range Interpretation Comments POCT GLU (test code = 4549263539) 192 mg/dL 70-110 H Lab Interpretation (test code = Abnormal 32948-6) [facility]22-[facility]-15 17:29:05 Test Item Value Reference Range Interpretation Comments POCT GLU (test code = 8636424682) 192 mg/dL 70-110 H Lab Interpretation (test code = Abnormal 85385-8) [facility] Ojnrh0972-88-44 16:28:42 Test Item Value Reference Range Interpretation Comments OSMOLALITY (test code = See_Comment H [Au tomated message] 2692-2) The system [employer] generated this result transmitted ref erence range: 278 - 30 5 mOsm/kg. The reference range was not used to int erpret this result as normal/abnormal . Lab Interpretation (test Abnormal code = 24524-9) [facility] [id number] 16:28:42 Test Item Value Reference Range Interpretation Comments OSMOLALITY (test code = See_Comment H [Au tomated message] 2692-2) The system [employer] generated this result transmitted ref erence range: 278 - 30 5 mOsm/kg. The reference range was not used to int erpret this result as normal/abnormal . Lab Interpretation (test Abnormal code = 45064-7) [facility] Ketwo1929-03-15 16:28:42 Test Item Value Reference Range Interpretation Comments OSMOLALITY (test code = See_Comment H [Au tomated message] 2692-2) The system [employer] generated this result transmitted ref erence range: 278 - 30 5 mOsm/kg. The reference range was not used to int erpret this result as normal/abnormal . Lab Interpretation (test Abnormal code = 09085-0) [facility] Metabolic Panel (Na, K, Cl, CO2, Glucose, BUN, Creatinine, Ca)2022-02-15 16:02:27 Test Item Value Reference Range Interpretation Comments NA (test code = 138 mmol/L 135-145 8845137119) K (test code = 3.7 mmol/L 3.5-5 0316443326) CL (test code = 117 mmol/L 98-108 H 5199541716) CO2 TOTAL (test code = 15 mmol/L 23-31 L 2157935897) AGAP (test code = 2-16 3497904214) BUN (test code = 7 mg/dL 7-23 4858160540) GLUCOSE (test code = 204 mg/dL 70-110 H 8133660680) CREATININE (test code = 0.41 mg/dL 0.6-1.25 L 1132115751) CALCIUM (test code = 8.3 mg/dL 8.6-10.6 L 8310507431) eGFR (test code = mL/min/1.73m2 0249543778) ARPITA (test code = ARPITA) Association of [...] tests). Lab Interpretation Abnormal (test code = 03937-5) [facility] Metabolic Panel (Na, K, Cl, CO2, Glucose, BUN, Creatinine, Ca)2022-02-15 16:02:27 Test Item Value Reference Range Interpretation Comments NA (test code = 138 mmol/L 135-145 9128641253) K (test code = 3.7 mmol/L 3.5-5 6928638394) CL (test code = 117 mmol/L 98-108 H 9870986387) CO2 TOTAL (test code = 15 mmol/L 23-31 L 9565333800) AGAP (test code = 2-16 8881536404) BUN (test code = 7 mg/dL 7-23 3023950071) GLUCOSE (test code = 204 mg/dL 70-110 H 0205168186) CREATININE (test code = 0.41 mg/dL 0.6-1.25 L 2523942475) CALCIUM (test code = 8.3 mg/dL 8.6-10.6 L 9237171249) eGFR (test code = mL/min/1.73m2 7451136989) ARPITA (test code = ARPITA) Association of [...] tests). Lab Interpretation Abnormal (test code = 41942-6) [facility] GLUCOSE (AUTOMATED)2022-02-15 15:54:35 Test Item Value Reference Range Interpretation Comments POCT GLU (test code = 7589894676) 200 mg/dL 70-110 H Lab Interpretation (test code = Abnormal 69757-5) [facility] GLUCOSE (AUTOMATED)2022-02-15 15:54:35 Test Item Value Reference Range Interpretation Comments POCT GLU (test code = 6807546680) 200 mg/dL 70-110 H Lab Interpretation (test code = Abnormal 30542-9) [facility] GLUCOSE (AUTOMATED)2022-02-15 14:57:17 Test Item Value Reference Range Interpretation Comments POCT GLU (test code = 6674590497) 211 mg/dL 70-110 H Lab Interpretation (test code = Abnormal 84058-7) [facility] GLUCOSE (AUTOMATED)2022-02-15 14:57:17 Test Item Value Reference Range Interpretation Comments POCT GLU (test code = 9370500060) 211 mg/dL 70-110 H Lab Interpretation (test code = Abnormal 75860-9) [facility] GLUCOSE (AUTOMATED)2022-02-15 13:50:06 Test Item Value Reference Range Interpretation Comments POCT GLU (test code = 8560834841) 216 mg/dL 70-110 H Lab Interpretation (test code = Abnormal 95869-3) [facility] GLUCOSE (AUTOMATED)2022-02-15 13:50:06 Test Item Value Reference Range Interpretation Comments POCT GLU (test code = 2675026229) 216 mg/dL 70-110 H Lab Interpretation (test code = Abnormal 65859-6) [facility] GLUCOSE (AUTOMATED)2022-02-15 10:43:13 Test Item Value Reference Range Interpretation Comments POCT GLU (test code = 0693194109) 199 mg/dL 70-110 H Lab Interpretation (test code = Abnormal 34643-5) [facility] GLUCOSE (AUTOMATED)2022-02-15 10:43:13 Test Item Value Reference Range Interpretation Comments POCT GLU (test code = 1963943991) 199 mg/dL 70-110 H Lab Interpretation (test code = Abnormal 50902-7) [facility] GLUCOSE (AUTOMATED)2022-02-15 09:31:59 Test Item Value Reference Range Interpretation Comments POCT GLU (test code = 7246129426) 172 mg/dL 70-110 H Lab Interpretation (test code = Abnormal 50607-5) [facility]15 09:31:59 Test Item Value Reference Range Interpretation Comments POCT GLU (test code = 5152334016) 172 mg/dL 70-110 H Lab Interpretation (test code = Abnormal 17865-2) [facility] Metabolic Panel (Na, K, Cl, CO2, Glucose, BUN, Creatinine, Ca)2022-02-15 08:02:13 Test Item Value Reference Range Interpretation Comments NA (test code = 140 mmol/L 135-145 2883032336) K (test code = 3.8 mmol/L 3.5-5 5813481649) CL (test code = 110 mmol/L 98-108 H 5331208696) CO2 TOTAL (test code = 13 mmol/L 23-31 L 6092474639) AGAP (test code = 2-16 H 1942899518) BUN (test code = 10 mg/dL 7-23 6829256825) GLUCOSE (test code = 223 mg/dL 70-110 H 7051546118) CREATININE (test code = 0.58 mg/dL 0.6-1.25 L 5039710788) CALCIUM (test code = 8.8 mg/dL 8.6-10.6 0542900064) eGFR (test code = mL/min/1.73m2 6237465041) ARPITA (test code = ARPITA) Association of [...] tests). Lab Interpretation Abnormal (test code = 35764-9) [facility] Metabolic Panel (Na, K, Cl, CO2, Glucose, BUN, Creatinine, Ca)2022-02-15 08:02:13 Test Item Value Reference Range Interpretation Comments NA (test code = 140 mmol/L 135-145 7803362202) K (test code = 3.8 mmol/L 3.5-5 1251128750) CL (test code = 110 mmol/L 98-108 H 6902666501) CO2 TOTAL (test code = 13 mmol/L 23-31 L 3000449367) AGAP (test code = 2-16 H 7352473735) BUN (test code = 10 mg/dL 7-23 2058614240) GLUCOSE (test code = 223 mg/dL 70-110 H 3938803930) CREATININE (test code = 0.58 mg/dL 0.6-1.25 L 7892950637) CALCIUM (test code = 8.8 mg/dL 8.6-10.6 0710378322) eGFR (test code = mL/min/1.73m2 7349665184) ARPITA (test code = ARPITA) Association of [...] tests). Lab Interpretation Abnormal (test code = 50944-4) [facility] GLUCOSE (AUTOMATED)2022-02-15 07:26:01 Test Item Value Reference Range Interpretation Comments POCT GLU (test code = 9470423089) 245 mg/dL 70-110 H Lab Interpretation (test code = Abnormal 50960-7) [facility] GLUCOSE (AUTOMATED)2022-02-15 07:26:01 Test Item Value Reference Range Interpretation Comments POCT GLU (test code = 7301674508) 245 mg/dL 70-110 H Lab Interpretation (test code = Abnormal 53112-0) [facility] GLUCOSE(AGE >30DAYS)2022-02-15 07:11:00 Test Item Value Reference Range Interpretation Comments POCT Glu (age>30days) (test code = 245 mg/dL 70-110 3342) Lab Interpretation (test code = Normal 20271-6) [facility] GLUCOSE(AGE >30DAYS)2022-02-15 07:11:00 Test Item Value Reference Range Interpretation Comments POCT Glu (age>30days) (test code = 245 mg/dL 70-110 3342) Lab Interpretation (test code = Normal 01749-6) [facility] GLUCOSE(AGE >30DAYS)2022-02-15 07:11:00 Test Item Value Reference Range Interpretation Comments POCT Glu (age>30days) (test code = 245 mg/dL 70-110 3342) Lab Interpretation (test code = Normal 84875-3) [facility]22-[facility]-15 05:57:25 Test Item Value Reference Range Interpretation Comments HGB A1C (test code = 12.7 % 4-5.7 H 4548-4) ARPITA (test code = ARPITA) Reference RangesNormal: <5.7%Prediabetes: 5.7 - 6.4%Diabetes: > 6.5% Lab Interpretation (test Abnormal code = 09268-7) [facility]2022-02-15 05:57:25 Test Item Value Reference Range Interpretation Comments HGB A1C (test code = 12.7 % 4-5.7 H 4548-4) ARPITA (test code = ARPITA) Reference RangesNormal: <5.7%Prediabetes: 5.7 - 6.4%Diabetes: > 6.5% Lab Interpretation (test Abnormal code = 80880-0) [facility]2022-02-15 05:57:25 Test Item Value Reference Range Interpretation Comments HGB A1C (test code = 12.7 % 4-5.7 H 4548-4) ARPITA (test code = ARPITA) Reference RangesNormal: <5.7%Prediabetes: 5.7 - 6.4%Diabetes: > 6.5% Lab Interpretation (test Abnormal code = 81777-2) [facility] Center[facility] [id number] 05:46:44 Test Item Value Reference Range Interpretation Comments MAGNESIUM (test code = 8232793177) 1.7 mg/dL 1.7-2.4 Lab Interpretation (test code = Normal 38338-1) [facility] Mebjv2004-71-64 05:46:44 Test Item Value Reference Range Interpretation Comments MAGNESIUM (test code = 8172501232) 1.7 mg/dL 1.7-2.4 Lab Interpretation (test code = Normal 10329-8) [facility] Ltwft5388-73-85 05:46:24 Test Item Value Reference Range Interpretation Comments PHOSPHORUS (test code = 8453191200) 4.0 mg/dL 2.5-5 Lab Interpretation (test code = Normal 64676-4) [facility] Eqgsr7794-01-22 05:46:24 Test Item Value Reference Range Interpretation Comments PHOSPHORUS (test code = 6582158176) 4.0 mg/dL 2.5-5 Lab Interpretation (test code = Normal 03447-4) [facility] Mpzul0333-93-18 05:46:24 Test Item Value Reference Range Interpretation Comments PHOSPHORUS (test code = 1390143508) 4.0 mg/dL 2.5-5 Lab Interpretation (test code = Normal 97769-2) [facility] GLUCOSE (AUTOMATED)2022-02-15 05:11:10 Test Item Value Reference Range Interpretation Comments POCT GLU (test code = 3068153776) 410 mg/dL 70-110 H Lab Interpretation (test code = Abnormal 36818-0) [facility] GLUCOSE (AUTOMATED)2022-02-15 05:11:10 Test Item Value Reference Range Interpretation Comments POCT GLU (test code = 1454329651) 410 mg/dL 70-110 H Lab Interpretation (test code = Abnormal 72688-8) [facility] GLUCOSE(AGE >30DAYS)2022-02-15 05:11:00 Test Item Value Reference Range Interpretation Comments POCT Glu (age>30days) (test code = 410 mg/dL 70-110 A 3342) Lab Interpretation (test code = Abnormal 44018-0) [facility] GLUCOSE(AGE >30DAYS)2022-02-15 05:11:00 Test Item Value Reference Range Interpretation Comments POCT Glu (age>30days) (test code = 410 mg/dL 70-110 A 3342) Lab Interpretation (test code = Abnormal 92417-4) [facility] WITH [id number] 05:03:57 Test Item Value Reference Range Interpretation [...] RDW-SD (test code = 44.1 fL 38.5-51.6 82079-4) RDW-CV (test code = 13.8 % 12.1-15.4 788-0) PLT (test code = See_Comment H [Automated 777-3) message] The sy stem which generated this result transmitted reference range : 150 - 328 10*3/ ?L. The reference r boubacar was not used to interpret this result as normal/abnormal . MPV (test code = 12.2 fL 9.8-13 03157-1) IPF % (test code = 9.4 % 1.2-10.7 Platelet count 0722359808) measured by fluorescence method. NRBC/100 WBC (test See_Comment [Automat ed code = 0889168437) message] The system which generated this result transmitted reference range : 0.0 - 10.0 /100 WBCs. The refer ence range was not u sed to interpret th is result as normal/abnormal . NRBC x10^3 (test code See_Comment [Auto mated = 8650626730) message] The s ystem which generated this result transmitted reference range : 10*3/?L. The reference range was not used to interpret this result as normal/abnormal . GRAN MAT (NEUT) % 65.1 % (test code = 770-8) IMM GRAN % (test code 1.10 % = 2591789975) LYMPH % (test code = 22.4 % 736-9) MONO % (test code = 9.8 % 5905-5) EOS % (test code = 1.4 % 713-8) BASO % (test code = 0.2 % 706-2) GRAN MAT x10^3(ANC) 6.15 10*3/uL 1.99-6.95 (test code = 2136061874) IMM GRAN x10^3 (test 0.10 10*3/uL 0-0.06 H code = 5703124024) LYMPH x10^3 (test code 2.11 10*3/uL 1.09-3.23 = 731-0) MONO x10^3 (test code 0.92 10*3/uL 0.36-1.02 = 742-7) EOS x10^3 (test code = 0.13 10*3/uL 0.06-0.53 711-2) BASO x10^3 (test code 0.01-0.09 = 704-7) Lab Interpretation Abnormal (test code = 37226-4) [facility] WITH [id number] 05:03:57 Test Item Value Reference Range Interpretation Comments WBC (test code = See_Comment [Automated 8390-2) message] The sy stem which generated this result transmitted reference range : 4.20 - 10.70 10*3/?L. The reference range was not used to interpret this result as normal/abnormal . RBC (test code = See_Comment [Automated 566-8) message] The sy stem which generated this [...] RDW-SD (test code = 44.1 fL 38.5-51.6 74365-0) RDW-CV (test code = 13.8 % 12.1-15.4 788-0) PLT (test code = See_Comment H [Automated 777-3) message] The sy stem which generated this result transmitted reference range : 150 - 328 10*3/ ?L. The reference r boubacar was not used to interpret this result as normal/abnormal . MPV (test code = 12.2 fL 9.8-13 28052-4) IPF % (test code = 9.4 % 1.2-10.7 Platelet count 0327668090) measured by fluorescence method. NRBC/100 WBC (test See_Comment [Automat ed code = 5412824654) message] The system which generated this result transmitted reference range : 0.0 - 10.0 /100 WBCs. The refer ence range was not u sed to interpret th is result as normal/abnormal . NRBC x10^3 (test code See_Comment [Auto mated = 6909314502) message] The s ystem which generated this result transmitted reference range : 10*3/?L. The reference range was not used to interpret this result as normal/abnormal . GRAN MAT (NEUT) % 65.1 % (test code = 770-8) IMM GRAN % (test code 1.10 % = 5074006955) LYMPH % (test code = 22.4 % 736-9) MONO % (test code = 9.8 % 5905-5) EOS % (test code = 1.4 % 713-8) BASO % (test code = 0.2 % 706-2) GRAN MAT x10^3(ANC) 6.15 10*3/uL 1.99-6.95 (test code = 1875320773) IMM GRAN x10^3 (test 0.10 10*3/uL 0-0.06 H code = 9160505854) LYMPH x10^3 (test code 2.11 10*3/uL 1.09-3.23 = 731-0) MONO x10^3 (test code 0.92 10*3/uL 0.36-1.02 = 742-7) EOS x10^3 (test code = 0.13 10*3/uL 0.06-0.53 711-2) BASO x10^3 (test code 0.01-0.09 = 704-7) Lab Interpretation Abnormal (test code = 85316-1) [facility] (NA, K, CL, CO2, GLUCOSE, BUN, CREATININE, CA)2022-02-15 04:46:12 Test Item Value Reference Range Interpretation Comments NA (test code = 136 mmol/L 135-145 3736764214) K (test code = 5.1 mmol/L 3.5-5 H 8656018745) CL (test code = 106 mmol/L 98-108 0543129379) CO2 TOTAL (test code = 9 mmol/L 23-31 L 4346711235) AGAP (test code = 2-16 H 6083774878) BUN (test code = 11 mg/dL 7-23 5041035432) GLUCOSE (test code = 405 mg/dL 70-110 H 3792469065) CREATININE (test code = 0.62 mg/dL 0.6-1.25 8950297511) CALCIUM (test code = 9.5 mg/dL 8.6-10.6 3094477844) eGFR (test code = mL/min/1.73m2 5370967858) ARPITA (test code = ARPITA) Association of [...] tests). Lab Interpretation Abnormal (test code = 08244-3) [facility] METABOLIC PANEL (NA, K, CL, CO2, GLUCOSE, BUN, CREATININE, CA)2022-02-15 04:46:12 Test Item Value Reference Range Interpretation Comments NA (test code = 136 mmol/L 135-145 9385387863) K (test code = 5.1 mmol/L 3.5-5 H 3089998520) CL (test code = 106 mmol/L 98-108 2494785782) CO2 TOTAL (test code = 9 mmol/L 23-31 L 1563863086) AGAP (test code = 2-16 H 7116400204) BUN (test code = 11 mg/dL 7-23 8993564136) GLUCOSE (test code = 405 mg/dL 70-110 H 9789182499) CREATININE (test code = 0.62 mg/dL 0.6-1.25 1689743767) CALCIUM (test code = 9.5 mg/dL 8.6-10.6 7747620251) eGFR (test code = mL/min/1.73m2 2956328307) ARPITA (test code = ARPITA) Association of [...] tests). Lab Interpretation Abnormal (test code = 68201-8) [facility] / [id number] 04:43:36 Test Item Value Reference Range Interpretation Comments PROTIME PATIENT (test See_Comment [Auto mated message] code = 5964-2) The system [employer] generated this result transmitted ref erence range: 12.0 - 1 4.7 Seconds. The re ference range was not u sed to interpret this result as normal/abnor mal. INR (test code = 6301-6) Nor mal INR <1.1; Warfarin Therap eutic range 2.0 to 3. 0 or 2.5 to 3.5, dep ending upon the indica tions. Lab Interpretation (test Normal code = 41802-6) [facility] / [id number] 04:43:36 Test Item Value Reference Range Interpretation Comments PROTIME PATIENT (test See_Comment [Auto mated message] code = 5964-2) The system [employer] generated this result transmitted ref erence range: 12.0 - 1 4.7 Seconds. The re ference range was not u sed to interpret this result as normal/abnor mal. INR (test code = 6301-6) Nor mal INR <1.1; Warfarin Therap eutic range 2.0 to 3. 0 or 2.5 to 3.5, dep ending upon the indica tions. Lab Interpretation (test Normal code = 73743-2) [facility] / [id number] 04:43:36 Test Item Value Reference Range Interpretation Comments PROTIME PATIENT (test See_Comment [Auto mated message] code = 5964-2) The system [employer] generated this result transmitted ref erence range: 12.0 - 1 4.7 Seconds. The re ference range was not u sed to interpret this result as normal/abnor mal. INR (test code = 6301-6) Nor mal INR <1.1; Warfarin Therap eutic range 2.0 to 3. 0 or 2.5 to 3.5, dep ending upon the indica tions. Lab Interpretation (test Normal code = 60875-4) [facility] (23346[facility] (ALB,T.PRO,BILI T,BU/BC,ALT,AST,ALK PHOS)2022-02-15 04:40:15 Test Item Value Reference Range Interpretation Comments TOTAL BILI (test code = 5332573068) 0.9 mg/dL 0.1-1.1 BILI UNCON (test code = 3464915214) 0.3 mg/dL 0.1-1.1 BILI CONJ (test code = 9031082116) 0.0 mg/dL 0-0.3 T PROTEIN (test code = 2994113827) 7.5 g/dL 6.3-8.2 ALBUMIN (test code = 5553033577) 4.0 g/dL 3.5-5 ALK PHOS (test code = 5010389463) 166 U/L 34-122 H ALTv (test code = 1742-6) 28 U/L 5-50 AST(SGOT) (test code = 4085086895) 22 U/L 13-40 Lab Interpretation (test code = Abnormal 40728-6) [facility] (79698) (ALB,T.PRO,BILI T,BU/BC,ALT,AST,ALK PHOS)2022-02-15 04:40:15 Test Item Value Reference Range Interpretation Comments TOTAL BILI (test code = 9191564330) 0.9 mg/dL 0.1-1.1 BILI UNCON (test code = 2436134574) 0.3 mg/dL 0.1-1.1 BILI CONJ (test code = 5329410653) 0.0 mg/dL 0-0.3 T PROTEIN (test code = 6432552269) 7.5 g/dL 6.3-8.2 ALBUMIN (test code = 6849626671) 4.0 g/dL 3.5-5 ALK PHOS (test code = 7035244367) 166 U/L 34-122 H ALTv (test code = 1742-6) 28 U/L 5-50 AST(SGOT) (test code = 3131185435) 22 U/L 13-40 Lab Interpretation (test code = Abnormal 55481-2) [facility] (ALB,T.PRO,BILI T,BU/BC,ALT,AST,ALK PHOS)2022-02-15 04:40:15 Test Item Value Reference Range Interpretation Comments TOTAL BILI (test code = 5246869682) 0.9 mg/dL 0.1-1.1 BILI UNCON (test code = 3266577806) 0.3 mg/dL 0.1-1.1 BILI CONJ (test code = 6797222500) 0.0 mg/dL 0-0.3 T PROTEIN (test code = 6661927894) 7.5 g/dL 6.3-8.2 ALBUMIN (test code = 0599793013) 4.0 g/dL 3.5-5 ALK PHOS (test code = 7155789930) 166 U/L 34-122 H ALTv (test code = 1742-6) 28 U/L 5-50 AST(SGOT) (test code = 4120006622) 22 U/L 13-40 Lab Interpretation (test code = Abnormal 66432-6) [facility] 04[facility]:00 Test Item Value Reference Range Interpretation Comments LIPASE (test code = 1390366808) 239 U/L 0-220 H Lab Interpretation (test code = Abnormal 09484-3) [facility] 04:40:00 Test Item Value Reference Range Interpretation Comments LIPASE (test code = 1487945959) 239 U/L 0-220 H Lab Interpretation (test code = Abnormal 66368-8) [facility] 04:40:00 Test Item Value Reference Range Interpretation Comments LIPASE (test code = 0767645615) 239 U/L 0-220 H Lab Interpretation (test code = Abnormal 45943-7) [facility] CenterBL[facility] [id number] 02:01:26 Test Item Value Reference Range Interpretation Comments Blood Culture-Aerobic No organisms No growth Previo us (test code = 16858-0) isolated prelim inary verified result was Culture [...] Culture-Anaerobic isolated preliminar y (test code = 77969-1) verifi ed result was Culture In Progress [...] CDT Lab Interpretation Normal (test code = 24461-5) [facility] GLUCOSE (AUTOMATED)2022-02-10 19:39:16 Test Item Value Reference Range Interpretation Comments POCT GLU (test code = 1170579656) 153 mg/dL 70-110 H Lab Interpretation (test code = Abnormal 32681-7) [facility] GLUCOSE (AUTOMATED)2022-02-10 16:42:59 Test Item Value Reference Range Interpretation Comments POCT GLU (test code = 5556123460) 311 mg/dL 70-110 H Lab Interpretation (test code = Abnormal 87020-6) [facility] GLUCOSE (AUTOMATED)2022-02-10 01:48:17 Test Item Value Reference Range Interpretation Comments POCT GLU (test code = 3441397272) 253 mg/dL 70-110 H Lab Interpretation (test code = Abnormal 97765-4) [facility] GLUCOSE (AUTOMATED)2022-02-09 21:48:07 Test Item Value Reference Range Interpretation Comments POCT GLU (test code = 4125720123) 279 mg/dL 70-110 H Lab Interpretation (test code = Abnormal 04346-2) [facility] GLUCOSE (AUTOMATED)2022-02-09 16:48:09 Test Item Value Reference Range Interpretation Comments POCT GLU (test code = 8168402718) 275 mg/dL 70-110 H Lab Interpretation (test code = Abnormal 00940-3) [facility] METABOLIC PANEL (NA, K, CL, CO2, GLUCOSE, BUN, CREATININE, CA)2022-02-09 15:41:54 Test Item Value Reference Range Interpretation Comments NA (test code = 148 mmol/L 135-145 H 2394666524) K (test code = 4.3 mmol/L 3.5-5 8888859284) CL (test code = 123 mmol/L 98-108 H 5815512449) CO2 TOTAL (test code = 19 mmol/L 23-31 L 0272352493) AGAP (test code = 2-16 7789634172) BUN (test code = 23 mg/dL 7-23 0587240429) GLUCOSE (test code = 305 mg/dL 70-110 H 8114226843) CREATININE (test code = 0.61 mg/dL 0.6-1.25 7670717348) CALCIUM (test code = 8.5 mg/dL 8.6-10.6 L 3770619099) eGFR (test code = mL/min/1.73m2 1244037629) ARPITA (test code = ARPITA) Association of [...] tests). Lab Interpretation Abnormal (test code = 40665-5) [facility]2022-[facility]-29 15:17:07 Test Item Value Reference Range Interpretation Comments MAGNESIUM (test code = 1197744176) 1.8 mg/dL 1.7-2.4 Lab Interpretation (test code = Normal 35564-0) [facility]OS[facility]ORUS2022-[facility]-29 15:17:07 Test Item Value Reference Range Interpretation Comments PHOSPHORUS (test code = 8558781829) 2.2 mg/dL 2.5-5 L Lab Interpretation (test code = Abnormal 84088-2) [facility] GLUCOSE (AUTOMATED)2022-02-09 12:48:51 Test Item Value Reference Range Interpretation Comments POCT GLU (test code = 1999921651) 274 mg/dL 70-110 H Lab Interpretation (test code = Abnormal 11721-6) [facility] GLUCOSE (AUTOMATED)2022-02-09 01:10:30 Test Item Value Reference Range Interpretation Comments POCT GLU (test code = 1509103465) 248 mg/dL 70-110 H Lab Interpretation (test code = Abnormal 30357-1) [facility] GLUCOSE (AUTOMATED)2022-02-09 01:10:30 Test Item Value Reference Range Interpretation Comments POCT GLU (test code = 0215180366) 300 mg/dL 70-110 H Lab Interpretation (test code = Abnormal 81926-6) [facility] GLUCOSE (AUTOMATED)2022-02-08 16:52:44 Test Item Value Reference Range Interpretation Comments POCT GLU (test code = 3429388989) 296 mg/dL 70-110 H Lab Interpretation (test code = Abnormal 62208-1) [facility] GLUCOSE (AUTOMATED)2022-02-08 16:52:43 Test Item Value Reference Range Interpretation Comments POCT GLU (test code = 2875023309) 345 mg/dL 70-110 H Lab Interpretation (test code = Abnormal 99357-6) [facility] GLUCOSE (AUTOMATED)2022-02-08 16:52:38 Test Item Value Reference Range Interpretation Comments POCT GLU (test code = 4475870828) 363 mg/dL 70-110 H Lab Interpretation (test code = Abnormal 83930-0) [facility] GLUCOSE (AUTOMATED)2022-02-08 16:52:38 Test Item Value Reference Range Interpretation Comments POCT GLU (test code = 1673356160) 444 mg/dL 70-110 H Lab Interpretation (test code = Abnormal 09368-2) [facility] GLUCOSE (AUTOMATED)2022-02-08 16:52:38 Test Item Value Reference Range Interpretation Comments POCT GLU (test code = 1069583522) 324 mg/dL 70-110 H Lab Interpretation (test code = Abnormal 51832-0) [facility] GLUCOSE (AUTOMATED)2022-02-08 16:52:38 Test Item Value Reference Range Interpretation Comments POCT GLU (test code = 2570316127) 303 mg/dL 70-110 H Lab Interpretation (test code = Abnormal 88449-2) [facility] GLUCOSE (AUTOMATED)2022-02-08 16:52:38 Test Item Value Reference Range Interpretation Comments POCT GLU (test code = 5709158495) 288 mg/dL 70-110 H Lab Interpretation (test code = Abnormal 95577-0) [facility] GLUCOSE (AUTOMATED)2022-02-08 16:37:12 Test Item Value Reference Range Interpretation Comments POCT GLU (test code = 9568934528) 241 mg/dL 70-110 H Lab Interpretation (test code = Abnormal 19804-2) [facility] GLUCOSE (AUTOMATED)2022-02-08 13:14:11 Test Item Value Reference Range Interpretation Comments POCT GLU (test code = 2813902101) 264 mg/dL 70-110 H Lab Interpretation (test code = Abnormal 06704-0) [facility] GLUCOSE (AUTOMATED)2022-02-08 11:04:52 Test Item Value Reference Range Interpretation Comments POCT GLU (test code = 8633405911) 257 mg/dL 70-110 H Lab Interpretation (test code = Abnormal 68199-9) [facility] GLUCOSE (AUTOMATED)2022-02-08 07:51:27 Test Item Value Reference Range Interpretation Comments POCT GLU (test code = 7314383143) 228 mg/dL 70-110 H Lab Interpretation (test code = Abnormal 48923-4) [facility] GLUCOSE (AUTOMATED)2022-02-08 03:43:14 Test Item Value Reference Range Interpretation Comments POCT GLU (test code = 9724530440) 269 mg/dL 70-110 H Lab Interpretation (test code = Abnormal 99898-2) [facility] GLUCOSE (AUTOMATED)2022-02-08 00:53:27 Test Item Value Reference Range Interpretation Comments POCT GLU (test code = 8762312330) 342 mg/dL 70-110 H Lab Interpretation (test code = Abnormal 55551-7) [facility] Metabolic Panel (Na, K, Cl, CO2, Glucose, BUN, Creatinine, Ca)2022-02-08 00:26:35 Test Item Value Reference Range Interpretation Comments NA (test code = 161 mmol/L 135-145 HH 6708339368) K (test code = 5.3 mmol/L 3.5-5 H 0492969072) CL (test code = 131 mmol/L 98-108 H 8652583968) CO2 TOTAL (test code = 14 mmol/L 23-31 L 1948855132) AGAP (test code = 2-16 6491491910) BUN (test code = 40 mg/dL 7-23 H 7572062077) GLUCOSE (test code = 363 mg/dL 70-110 H 6733219518) CREATININE (test code = 1.31 mg/dL 0.6-1.25 H 9925728434) CALCIUM (test code = 9.0 mg/dL 8.6-10.6 6889245934) eGFR (test code = mL/min/1.73m2 0931900857) ARPITA (test code = ARPITA) Association of [...] tests). Lab Interpretation Abnormal (test code = 36125-2) [facility] GLUCOSE (AUTOMATED)2022-02-07 22:31:31 Test Item Value Reference Range Interpretation Comments POCT GLU (test code = 8943192879) 349 mg/dL 70-110 H Lab Interpretation (test code = Abnormal 88408-6) [facility] GLUCOSE (AUTOMATED)2022-02-07 20:57:05 Test Item Value Reference Range Interpretation Comments POCT GLU (test code = 5567905774) 70-110 HH Lab Interpretation (test code = Abnormal 09829-6) [facility] GLUCOSE (AUTOMATED)2022-02-07 20:57:00 Test Item Value Reference Range Interpretation Comments POCT GLU (test code = 6380954026) 70-110 HH Lab Interpretation (test code = Abnormal 46805-1) [facility] GLUCOSE (AUTOMATED)2022-02-07 20:57:00 Test Item Value Reference Range Interpretation Comments POCT GLU (test code = 2335781605) 70-110 HH Lab Interpretation (test code = Abnormal 05822-1) [facility] GLUCOSE (AUTOMATED)2022-02-07 20:57:00 Test Item Value Reference Range Interpretation Comments POCT GLU (test code = 9931735009) 70-110 HH Lab Interpretation (test code = Abnormal 25879-6) [facility] CenterLactic Acid Whole [id number] 12:58:42 Test Item Value Reference Range Interpretation Comments LACTIC ACID (test code = 4.32 mmol/L 0.5-2.2 H 5711596928) Lab Interpretation (test code = Abnormal 10177-6) [facility] CenterPhosphorus [id number] 03:51:48 Test Item Value Reference Range Interpretation Comments PHOSPHORUS (test code = 6.7 mg/dL 2.5-5 H Slig ht hemolysis 6340336936) Lab Interpretation (test Abnormal code = 65014-0) [facility] CenterMagnesium Zaetr9329-74-54 03:51:48 Test Item Value Reference Range Interpretation Comments MAGNESIUM (test code = 3937304843) 2.8 mg/dL 1.7-2.4 H Lab Interpretation (test code = Abnormal 72719-5) [facility] CenterCOMP. METABOLIC PANEL (53286)2022-02-07 02:16:52 Test Item Value Reference Range Interpretation Comments NA (test code = 166 mmol/L 135-145 HH 1810329992) K (test code = 5.2 mmol/L 3.5-5 H 8599329966) CL (test code = 123 mmol/L 98-108 H 8826790875) CO2 TOTAL (test code = 12 mmol/L 23-31 L 7182407913) AGAP (test code = 2-16 H 6067436161) BUN (test code = 35 mg/dL 7-23 H 4038752563) GLUCOSE (test code = 941 mg/dL 70-110 HH 3011552321) CREATININE (test code = 1.51 mg/dL 0.6-1.25 H 6384048501) TOTAL BILI (test code = 1.1 mg/dL 0.1-1.0 8836046787) CALCIUM (test code = 10.7 mg/dL 8.6-10.6 H 6476056622) T PROTEIN (test code = 8.2 g/dL 6.3-8.2 3159223835) ALBUMIN (test code = 4.5 g/dL 3.5-5 8201262715) ALK PHOS (test code = 201 U/L 34-122 H 1894117467) ALTv (test code = 43 U/L 550 1742-6) AST(SGOT) (test code = 27 U/L 13-40 9386092875) eGFR (test code = mL/min/1.73m2 3678515833) ARPITA (test code = ARPITA) Association of [...] tests). Lab Interpretation Abnormal (test code = 65492-8) [facility] CenterFAROOQ [id number] 02:12:40 Test Item Value Reference Interpretation Comments Range TROPONIN I (test 0.005 ng/mL See_Comment [Automated code = 6640018773) message] The system which generated this result [...] biotin. Lab Interpretation Normal (test code = 61799-3) [facility] CenterSALICYLATE2022-07-27 02:06:11 SALICYLATE<10mg/L02/06/2022 9:06 PM [facility]The[facility] Range: ? Analgesic and Antipyretic Use ? 20- 100 mg/L ? ? Anti-Inflammatory Use ? 100-250 mg/L Toxic Range: ? Greater than 300 mg/LUnCHRISTUS [facility]ohn Hospital AliceSALICYLATE2022-07-27 02:06:11SALICYLATE<10mg/L02/06/2022 9:06 PM [facility] Range: ? Analgesic and Antipyretic Use ? 20-100 mg/L ? ? Anti-Inflammatory Use ? 100-250 mg/L Toxic Range: ? Greater than 300 mg/L [facility] CenterETHANOL2022-07-27 02:05:51 ALCOHOL<10mg/dL02/06/2022 9:05 PM [facility]<10 Ohbjvhwl90-310 Toxic>100 Depression of FAST FOOD SHIFT LEAD>400 Fatalities ReportedUnCHRISTUS Spohn Hospital AliceETHANOL2022-07-27 02:05:51 ALCOHOL<10mg/dL02/06/2022 9:05 PM [facility]<10 Ywsjanyi87-971 Toxic>100 Depression of FAST FOOD SHIFT LEAD>400 Fatalities ReportedUnCHRISTUS [facility]ohn Hospital AliceACETAMINOPHEN2022-07-27 02:03:04 Test Item Value Reference Range Interpretation Comments ACETAMINOP (test code = 10-30 L 8201135025) ARPITA (test code = ARPITA) Toxic: Greater than 200 ug/mL @ 4 hour post ingestion or greater than 50 ug/mL @ 12 hour post ingestion Lab Interpretation (test Abnormal code = 97836-8) [facility] CenterACETAMINOPHEN2022-07-27 02:03:04 Test Item Value Reference Range Interpretation Comments ACETAMINOP (test code = 10-30 L 8356575166) ARPITA (test code = ARPITA) Toxic: Greater than 200 ug/mL @ 4 hour post ingestion or greater than 50 ug/mL @ 12 hour post ingestion Lab Interpretation (test Abnormal code = 78700-3) [facility] CenterLIPASE2022-[facility]-27 02:01:02 Test Item Value Reference Range Interpretation Comments LIPASE (test code = 2200746032) 246 U/L 0-220 H Lab Interpretation (test code = Abnormal 15886-9) [facility] WITH [id number] 01:12:41 Test Item Value Reference Range Interpretation [...] RDW-SD (test code = 50.8 fL 38.5-51.6 71336-4) RDW-CV (test code = 16.4 % 12.1-15.4 H 788-0) PLT (test code = See_Comment H [Automated 777-3) message] The system which generated this result transmit lester reference range : 150 - 328 10*3/ ?L. The reference range was not u sed to interpret th is result as normal/abnormal . MPV (test code = 11.6 fL 9.8-13 78479-5) NRBC/100 WBC (test See_Comment [Automat ed code = 0063487181) message] The system which generated this result transmit lester reference range : 0.0 - 10.0 /100 WBCs. The reference range was not used to interpret this result as normal/abnormal . NRBC x10^3 (test code See_Comment [Auto mated = 2159268670) message] The system which generated this result transmit lester reference range : 10*3/?L. The reference range was not used to interpret this result as normal/abnormal . SEG % (test code = 77 % 33-76 H 30677-1) BAND % (test code = 9 % 0-1 H 79519-9) LYMPH % (test code = 7 % 14-54 L 31529-3) MONO % (test code = 7 % 0-4 H 52626-7) ANC (test code = 15.98 10*3/uL 1.99-6.95 H 753-4) ALBERT CELLS (test code 2+ See_Comment A [Auto mated = 7790-9) message] The system which generated this result transmit lester reference range : (none). The reference range was not used to interpret this result as normal/abnormal . Lab Interpretation Abnormal (test code = 84398-8) [facility] GLUCOSE (AUTOMATED)2022-01-27 01:30:22 Test Item Value Reference Range Interpretation Comments POCT GLU (test code = 8610715473) 392 mg/dL 70-110 H Lab Interpretation (test code = Abnormal 93577-2) [facility] GLUCOSE(AGE >30DAYS)2022-01-27 01:30:00 Test Item Value Reference Range Interpretation Comments POCT Glu (age>30days) 392 mg/dL, 70-110 (test code = 3342) [facility] Lab Interpretation (test Normal code = 65448-4) [facility] GLUCOSE (AUTOMATED)2022-01-27 00:43:22 Test Item Value Reference Range Interpretation Comments POCT GLU (test code = 5178420944) 430 mg/dL 70-110 H Lab Interpretation (test code = Abnormal 60764-2) [facility] GLUCOSE (AUTOMATED)2022-01-26 23:29:00 Test Item Value Reference Range Interpretation Comments POCT GLU (test code = 0831709019) 493 mg/dL 70-110 HH Lab Interpretation (test code = Abnormal 85930-8) [facility] METABOLIC PANEL (NA, K, CL, CO2, GLUCOSE, BUN, CREATININE, CA)2022-01-26 22:56:10 Test Item Value Reference Range Interpretation Comments NA (test code = 132 mmol/L 135-145 L 0758496028) K (test code = 4.4 mmol/L 3.5-5 1171107759) CL (test code = 98 mmol/L 98-108 4380711612) CO2 TOTAL (test code = 19 mmol/L 23-31 L 2565685375) AGAP (test code = 2-16 7630322878) BUN (test code = 11 mg/dL 7-23 3025392184) GLUCOSE (test code = 519 mg/dL 70-110 HH 7114436230) CREATININE (test code = 0.55 mg/dL 0.6-1.25 L 6826633567) CALCIUM (test code = 9.5 mg/dL 8.6-10.6 8387931331) eGFR (test code = mL/min/1.73m2 1930237924) ARPITA (test code = ARPITA) Association of [...] tests). Lab Interpretation Abnormal (test code = 05260-7) [facility] WITH [id number] 22:45:19 Test Item Value Reference Range Interpretation Comments WBC (test code = See_Comment [Automated 7945-2) message] The sy stem which generated this [...] RDW-SD (test code = 41.7 fL 38.5-51.6 22619-9) RDW-CV (test code = 13.6 % 12.1-15.4 788-0) PLT (test code = See_Comment H [Automated 7-3) message] The sy stem which generated this result transmitted reference range : 150 - 328 10*3/ ?L. The reference r boubacar was not used to interpret this result as normal/abnormal . MPV (test code = 10.6 fL 9.8-13 61951-2) NRBC/100 WBC (test See_Comment [Automat ed code = 0240700520) message] The system which generated this result transmitted reference range : 0.0 - 10.0 /100 WBCs. The refer ence range was not u sed to interpret th is result as normal/abnormal . NRBC x10^3 (test code See_Comment [Auto mated = 8864115183) message] The s ystem which generated this result transmitted reference range : 10*3/?L. The reference range was not used to interpret this result as normal/abnormal . GRAN MAT (NEUT) % 66.6 % (test code = 770-8) IMM GRAN % (test code 0.40 % = 2886673651) LYMPH % (test code = 20.5 % 736-9) MONO % (test code = 10.9 % 5905-5) EOS % (test code = 1.5 % 713-8) BASO % (test code = 0.1 % 706-2) GRAN MAT x10^3(ANC) 4.88 10*3/uL 1.99-6.95 (test code = 0843747178) IMM GRAN x10^3 (test 0.03 10*3/uL 0-0.06 code = 4862376541) LYMPH x10^3 (test code 1.50 10*3/uL 1.09-3.23 = 731-0) MONO x10^3 (test code 0.80 10*3/uL 0.36-1.02 = 742-7) EOS x10^3 (test code = 0.11 10*3/uL 0.06-0.53 711-2) BASO x10^3 (test code 0.01-0.09 = 704-7) Lab Interpretation Abnormal (test code = 64027-5) [facility] WITH [id number] 11:05:43 Test Item Value Reference Range Interpretation [...] RDW-SD (test code = 41.7 fL 38.5-51.6 80435-6) RDW-CV (test code = 13.4 % 12.1-15.4 788-0) PLT (test code = See_Comment H [Automated 777-3) message] The sy stem which generated this result transmitted reference range : 150 - 328 10*3/ ?L. The reference r boubacar was not used to interpret this result as normal/abnormal . MPV (test code = 10.3 fL 9.8-13.0 25650-2) NRBC/100 WBC (test See_Comment [Automat ed code = 7021888314) message] The system which generated this result transmitted reference range : 0.0 - 10.0 /100 WBCs. The refer ence range was not u sed to interpret th is result as normal/abnormal . NRBC x10^3 (test code <0.01 See_Comment [Auto mated = 3268576347) message] The s ystem which generated this result transmitted reference range : 10*3/?L. The reference range was not used to interpret this result as normal/abnormal . GRAN MAT (NEUT) % 71.2 % (test code = 770-8) IMM GRAN % (test code 1.30 % = 4298951295) LYMPH % (test code = 18.2 % 736-9) MONO % (test code = 7.1 % 5905-5) EOS % (test code = 1.9 % 713-8) BASO % (test code = 0.3 % 706-2) GRAN MAT x10^3(ANC) 8.37 10*3/uL 1.99-6.95 H (test code = 6674563378) IMM GRAN x10^3 (test 0.15 10*3/uL 0.00-0.06 H code = 6562610992) LYMPH x10^3 (test code 2.14 10*3/uL 1.09-3.23 = 731-0) MONO x10^3 (test code 0.84 10*3/uL 0.36-1.02 = 742-7) EOS x10^3 (test code = 0.22 10*3/uL 0.06-0.53 711-2) BASO x10^3 (test code 0.04 10*3/uL 0.01-0.09 = 704-7) Lab Interpretation Abnormal (test code = 59586-2) [facility]. METABOLIC PANEL (90732)2022-01-17 11:03:21 Test Item Value Reference Range Interpretation Comments NA (test code = 133 mmol/L 135-145 L 5770152766) K (test code = 4.3 mmol/L 3.5-5.0 4034463859) CL (test code = 99 mmol/L 98-108 2372633908) CO2 TOTAL (test code = 20 mmol/L 23-31 L 3499092968) AGAP (test code = 2-16 3462314913) BUN (test code = 11 mg/dL 7-23 6229087758) GLUCOSE (test code = 357 mg/dL 70-110 H 3009627790) CREATININE (test code = 0.52 mg/dL 0.60-1.25 L 0632081107) TOTAL BILI (test code = 0.7 mg/dL 0.1-1.2 9786855233) CALCIUM (test code = 9.6 mg/dL 8.6-10.6 6936481448) T PROTEIN (test code = 7.5 g/dL 6.3-8.2 2244682255) ALBUMIN (test code = 4.2 g/dL 3.5-5.0 3939385217) ALK PHOS (test code = 185 U/L 34-122 H 1844268899) ALTv (test code = 78 U/L 5-50 H 2-6) AST(SGOT) (test code = 18 U/L 13-40 8988993704) eGFR (test code = mL/min/1.73m2 5472969294) ARPITA (test code = ARPITA) Association of [...] tests). Lab Interpretation Abnormal (test code = 31366-9) [facility] 11:02:41 Test Item Value Reference Range Interpretation Comments LIPASE (test code = 6553323024) 63 U/L 0-220 Lab Interpretation (test code = Normal 61594-8) [facility]2022-[facility]-12 22:54:04 Test Item Value Reference Range Interpretation Comments POCT GLU (test code = 9667145598) 361 mg/dL 70-110 H Lab Interpretation (test code = Abnormal 81348-3) [facility] GLUCOSE (AUTOMATED)2022-01-12 12:19:07 Test Item Value Reference Range Interpretation Comments POCT GLU (test code = 5013415238) 390 mg/dL 70-110 H Lab Interpretation (test code = Abnormal 03565-8) [facility] GLUCOSE (AUTOMATED)2022-01-12 04:48:35 Test Item Value Reference Range Interpretation Comments POCT GLU (test code = 9629924044) 412 mg/dL 70-110 H Lab Interpretation (test code = Abnormal 74767-2) [facility] GLUCOSE (AUTOMATED)2022-01-12 01:44:33 Test Item Value Reference Range Interpretation Comments POCT GLU (test code = 6264779053) 376 mg/dL 70-110 H Lab Interpretation (test code = Abnormal 39198-1) [facility] GLUCOSE (AUTOMATED)2022-01-11 21:51:37 Test Item Value Reference Range Interpretation Comments POCT GLU (test code = 1710460942) 267 mg/dL 70-110 H Lab Interpretation (test code = Abnormal 07964-7) [facility] GLUCOSE (AUTOMATED)2022-01-11 17:05:21 Test Item Value Reference Range Interpretation Comments POCT GLU (test code = 5889807623) 377 mg/dL 70-110 H Lab Interpretation (test code = Abnormal 60367-4) [facility] GLUCOSE (AUTOMATED)2022-01-11 13:10:54 Test Item Value Reference Range Interpretation Comments POCT GLU (test code = 6194113520) 495 mg/dL 70-110 HH Lab Interpretation (test code = Abnormal 16258-8) [facility] GLUCOSE (AUTOMATED)2022-01-11 08:34:04 Test Item Value Reference Range Interpretation Comments POCT GLU (test code = 7418556491) 427 mg/dL 70-110 H Lab Interpretation (test code = Abnormal 99474-0) [facility] GLUCOSE (AUTOMATED)2022-01-11 05:46:02 Test Item Value Reference Range Interpretation Comments POCT GLU (test code = 2366847058) 451 mg/dL 70-110 HH Lab Interpretation (test code = Abnormal 43354-7) [facility] GLUCOSE (AUTOMATED)2022-01-11 02:44:38 Test Item Value Reference Range Interpretation Comments POCT GLU (test code = 3734534991) 429 mg/dL 70-110 H Lab Interpretation (test code = Abnormal 41233-7) [facility] GLUCOSE (AUTOMATED)2022-01-10 22:38:24 Test Item Value Reference Range Interpretation Comments POCT GLU (test code = [id number]) 404 mg/dL 70-110 H Lab Interpretation (test code = Abnormal 99319-8) [facility] GLUCOSE (AUTOMATED)2022-01-10 18:05:20 Test Item Value Reference Range Interpretation Comments POCT GLU (test code = [id number]) 423 mg/dL 70-110 H Lab Interpretation (test code = Abnormal 68470-3) [facility] METABOLIC PANEL (NA, K, CL, CO2, GLUCOSE, BUN, CREATININE, CA)2022-01-10 14:56:25 Test Item Value Reference Range Interpretation Comments NA (test code = 135 mmol/L 135-145 4117543717) K (test code = 4.0 mmol/L 3.5-5.0 3120691720) CL (test code = 102 mmol/L 98-108 7695001095) CO2 TOTAL (test code = 22 mmol/L 23-31 L 0659609850) AGAP (test code = 2-16 3986795792) BUN (test code = 13 mg/dL 7-23 9312250445) GLUCOSE (test code = 547 mg/dL 70-110 HH 2502925334) CREATININE (test code = 0.65 mg/dL 0.60-1.25 7222002161) CALCIUM (test code = 8.6 mg/dL 8.6-10.6 9791245881) eGFR (test code = mL/min/1.73m2 6348657141) ARPITA (test code = ARPITA) Association of [...] tests). Lab Interpretation Abnormal (test code = 21236-5) [facility] GLUCOSE (AUTOMATED)2022-01-10 13:36:27 Test Item Value Reference Range Interpretation Comments POCT GLU (test code = 7872853694) 526 mg/dL 70-110 HH Lab Interpretation (test code = Abnormal 47011-5) [facility] GLUCOSE (AUTOMATED)2022-01-10 12:52:44 Test Item Value Reference Range Interpretation Comments POCT GLU (test code = 0603249899) >600 70-110 HH Lab Interpretation (test code = Abnormal 16872-4) [facility] GLUCOSE (AUTOMATED)2022-01-10 12:52:44 Test Item Value Reference Range Interpretation Comments POCT GLU (test code = 0773492141) >600 70-110 HH Lab Interpretation (test code = Abnormal 32133-4) [facility] GLUCOSE (AUTOMATED)2022-01-10 11:02:02 Test Item Value Reference Range Interpretation Comments POCT GLU (test code = 9048060490) 521 mg/dL 70-110 HH Lab Interpretation (test code = Abnormal 39494-4) [facility] GLUCOSE (AUTOMATED)2022-01-10 07:22:18 Test Item Value Reference Range Interpretation Comments POCT GLU (test code = 5517123287) 534 mg/dL 70-110 HH Lab Interpretation (test code = Abnormal 96917-1) [facility] METABOLIC PANEL (NA, K, CL, CO2, GLUCOSE, BUN, CREATININE, CA)2022-01-10 06:34:51 Test Item Value Reference Range Interpretation Comments NA (test code = 133 mmol/L 135-145 L 8440502302) K (test code = 4.9 mmol/L 3.5-5.0 Slight 7190751902) hemolysis CL (test code = 96 mmol/L 98-108 L 0383481241) CO2 TOTAL (test code 21 mmol/L 23-31 L = 4328736843) AGAP (test code = 2-16 8340906731) BUN (test code = 12 mg/dL 7-23 Slight 4004344521) hemolysis GLUCOSE (test code = 639 mg/dL 70-110 HH 4081253066) CREATININE (test code 0.46 mg/dL 0.60-1.25 L = 7799181023) CALCIUM (test code = 9.7 mg/dL 8.6-10.6 7124402619) eGFR (test code = mL/min/1.73m2 6727890217) ARPITA (test code = ARPITA) Association of [...] tests). Lab Interpretation Abnormal (test code = 30763-7) [facility]. METABOLIC PANEL ([id number])2022-01-10 02:59:57 Test Item Value Reference Range Interpretation Comments NA (test code = 126 mmol/L 135-145 L 7650955870) K (test code = 5.2 mmol/L 3.5-5.0 H 6367147553) CL (test code = 89 mmol/L 98-108 L 4843083756) CO2 TOTAL (test code = 20 mmol/L 23-31 L 6013684471) AGAP (test code = 2-16 H 5228274198) BUN (test code = 12 mg/dL 7-23 7985544551) GLUCOSE (test code = 856 mg/dL 70-110 HH 8931608002) CREATININE (test code = 0.49 mg/dL 0.60-1.25 L 9484077141) TOTAL BILI (test code = 0.7 mg/dL 0.1-1.2 5027790377) CALCIUM (test code = 10.2 mg/dL 8.6-10.6 1313260584) T PROTEIN (test code = 8.2 g/dL 6.3-8.2 4227987075) ALBUMIN (test code = 4.5 g/dL 3.5-5.0 8913157658) ALK PHOS (test code = 186 U/L 34-122 H 8507315284) ALTv (test code = 27 U/L 5-50 1742-6) AST(SGOT) (test code = 18 U/L 13-40 2035407735) eGFR (test code = mL/min/1.73m2 8131154682) ARPITA (test code = ARPITA) Association of [...] tests). Lab Interpretation Abnormal (test code = 39493-7) [facility] Test Item Value Reference Range Interpretation Comments LIPASE (test code = 4712076598) 146 U/L 0-220 Lab Interpretation (test code = Normal 58021-1) [facility] [id number] 02:34:07 Test Item Value Reference Range Interpretation Comments WBC (test code = See_Comment [Automated 4390-2) message] The sy stem which generated this result transmitted reference range : 4.20 - 10.70 10*3/?L. The reference range was not used to interpret this result as normal/abnormal . RBC (test code = See_Comment [Automated 320-5) message] The sy stem which generated this [...] RDW-SD (test code = 42.0 fL 38.5-51.6 77455-3) RDW-CV (test code = 13.5 % 12.1-15.4 788-0) PLT (test code = See_Comment H [Automated 777-3) message] The sy stem which generated this result transmitted reference range : 150 - 328 10*3/ ?L. The reference r boubacar was not used to interpret this result as normal/abnormal . MPV (test code = 10.5 fL 9.8-13.0 54616-0) NRBC/100 WBC (test See_Comment [Automat ed code = 8453603987) message] The system which generated this result transmitted reference range : 0.0 - 10.0 /100 WBCs. The refer ence range was not u sed to interpret th is result as normal/abnormal . NRBC x10^3 (test code <0.01 See_Comment [Auto mated = 3461527909) message] The s ystem which generated this result transmitted reference range : 10*3/?L. The reference range was not used to interpret this result as normal/abnormal . GRAN MAT (NEUT) % 67.5 % (test code = 770-8) IMM GRAN % (test code 0.70 % = 5342379908) LYMPH % (test code = 21.7 % 736-9) MONO % (test code = 8.4 % 5905-5) EOS % (test code = 1.3 % 713-8) BASO % (test code = 0.4 % 706-2) GRAN MAT x10^3(ANC) 6.61 10*3/uL 1.99-6.95 (test code = 4855440129) IMM GRAN x10^3 (test 0.07 10*3/uL 0.00-0.06 H code = 1366840491) LYMPH x10^3 (test code 2.12 10*3/uL 1.09-3.23 = 731-0) MONO x10^3 (test code 0.82 10*3/uL 0.36-1.02 = 742-7) EOS x10^3 (test code = 0.13 10*3/uL 0.06-0.53 711-2) BASO x10^3 (test code 0.04 10*3/uL 0.01-0.09 = 704-7) Lab Interpretation Abnormal (test code = 05884-9) [facility] (ALB,T.PRO,BILI T,BU/BC,ALT,AST,ALK PHOS)2022-01-06 13:57:09 Test Item Value Reference Range Interpretation Comments TOTAL BILI (test code = 8821169451) 0.7 mg/dL 0.1-1.1 BILI UNCON (test code = 4876971795) 0.3 mg/dL 0.1-1.1 BILI CONJ (test code = 4697741243) 0.0 mg/dL 0.0-0.3 T PROTEIN (test code = 2869510198) 7.5 g/dL 6.3-8.2 ALBUMIN (test code = 0677402874) 3.8 g/dL 3.5-5.0 ALK PHOS (test code = 6579125049) 161 U/L 34-122 H ALTv (test code = 1742-6) 44 U/L 5-50 AST(SGOT) (test code = 2965300549) 47 U/L 13-40 H Lab Interpretation (test code = Abnormal 82012-1) [facility] (NA, K, CL, CO2, GLUCOSE, BUN, CREATININE, CA)2022-01-06 10:48:59 Test Item Value Reference Range Interpretation Comments NA (test code = 136 mmol/L 135-145 6813254947) K (test code = 3.8 mmol/L 3.5-5.0 9931852834) CL (test code = 101 mmol/L 98-108 4553129415) CO2 TOTAL (test code = 22 mmol/L 23-31 L 9067738746) AGAP (test code = 2-16 2028519173) BUN (test code = 16 mg/dL 7-23 9484830562) GLUCOSE (test code = 358 mg/dL 70-110 H 2445291903) CREATININE (test code = 0.63 mg/dL 0.60-1.25 1053301371) CALCIUM (test code = 9.2 mg/dL 8.6-10.6 4711685683) eGFR (test code = mL/min/1.73m2 7264824011) ARPITA (test code = ARPITA) Association of [...] tests). Lab Interpretation Abnormal (test code = 04772-5) [facility] WITH [id number] 10:01:35 Test Item Value Reference Range Interpretation [...] RDW-SD (test code = 41.6 fL 38.5-51.6 66884-5) RDW-CV (test code = 13.4 % 12.1-15.4 788-0) PLT (test code = See_Comment H [Automated 777-3) message] The sy stem which generated this result transmitted reference range : 150 - 328 10*3/ ?L. The reference r boubacar was not used to interpret this result as normal/abnormal . MPV (test code = 11.0 fL 9.8-13.0 53502-9) NRBC/100 WBC (test See_Comment [Automat ed code = 9285990799) message] The system which generated this result transmitted reference range : 0.0 - 10.0 /100 WBCs. The refer ence range was not u sed to interpret th is result as normal/abnormal . NRBC x10^3 (test code <0.01 See_Comment [Auto mated = 8444013122) message] The s ystem which generated this result transmitted reference range : 10*3/?L. The reference range was not used to interpret this result as normal/abnormal . GRAN MAT (NEUT) % 62.6 % (test code = 770-8) IMM GRAN % (test code 0.40 % = 7978415280) LYMPH % (test code = 23.2 % 736-9) MONO % (test code = 9.6 % 5905-5) EOS % (test code = 3.8 % 713-8) BASO % (test code = 0.4 % 706-2) GRAN MAT x10^3(ANC) 4.76 10*3/uL 1.99-6.95 (test code = 0247275440) IMM GRAN x10^3 (test 0.03 10*3/uL 0.00-0.06 code = 5228347835) LYMPH x10^3 (test code 1.76 10*3/uL 1.09-3.23 = 731-0) MONO x10^3 (test code 0.73 10*3/uL 0.36-1.02 = 742-7) EOS x10^3 (test code = 0.29 10*3/uL 0.06-0.53 711-2) BASO x10^3 (test code 0.03 10*3/uL 0.01-0.09 = 704-7) Lab Interpretation Abnormal (test code = 18526-3) [facility] (25455[facility]2022-01-05 04:36:59 Test Item Value Reference Range Interpretation Comments NA (test code = 138 mmol/L 135-145 7423958270) K (test code = 5.4 mmol/L 3.5-5.0 H 1954494113) CL (test code = 98 mmol/L 98-108 9440501256) CO2 TOTAL (test code = 17 mmol/L 23-31 L 4470865646) AGAP (test code = 2-16 H 0290292367) BUN (test code = 19 mg/dL 7-23 2471899344) GLUCOSE (test code = 469 mg/dL 70-110 HH 0239100540) CREATININE (test code = 0.74 mg/dL 0.60-1.25 7881546241) TOTAL BILI (test code = 1.0 mg/dL 0.1-1.8 9822945879) CALCIUM (test code = 10.1 mg/dL 8.6-10.6 3111120139) T PROTEIN (test code = 8.2 g/dL 6.3-8.2 0714538620) ALBUMIN (test code = 4.6 g/dL 3.5-5.0 6791025385) ALK PHOS (test code = 208 U/L 34-122 H 6291903660) ALTv (test code = 51 U/L 5-50 H 2-6) AST(SGOT) (test code = 18 U/L 13-40 3344550860) eGFR (test code = mL/min/1.73m2 7473355246) ARPITA (test code = ARPITA) Association of [...] tests). Lab Interpretation Abnormal (test code = 10248-3) [facility] 04[facility]29:02 Test Item Value Reference Range Interpretation Comments LIPASE (test code = 4090771725) 137 U/L 0-220 Lab Interpretation (test code = Normal 31268-0) [facility] [id number] 04:07:59 Test Item Value Reference Range Interpretation [...] RDW-SD (test code = 42.6 fL 38.5-51.6 48203-6) RDW-CV (test code = 13.6 % 12.1-15.4 788-0) PLT (test code = See_Comment H [Automated 777-3) message] The sy stem which generated this result transmitted reference range : 150 - 328 10*3/ ?L. The reference r boubacar was not used to interpret this result as normal/abnormal . MPV (test code = 10.7 fL 9.8-13.0 54373-8) NRBC/100 WBC (test See_Comment [Automat ed code = 8116805220) message] The system which generated this result transmitted reference range : 0.0 - 10.0 /100 WBCs. The refer ence range was not u sed to interpret th is result as normal/abnormal . NRBC x10^3 (test code <0.01 See_Comment [Auto mated = 8848447312) message] The s ystem which generated this result transmitted reference range : 10*3/?L. The reference range was not used to interpret this result as normal/abnormal . GRAN MAT (NEUT) % 74.2 % (test code = 770-8) IMM GRAN % (test code 0.50 % = 9393769713) LYMPH % (test code = 14.8 % 736-9) MONO % (test code = 8.3 % 5905-5) EOS % (test code = 1.9 % 713-8) BASO % (test code = 0.3 % 706-2) GRAN MAT x10^3(ANC) 8.01 10*3/uL 1.99-6.95 H (test code = 5993163210) IMM GRAN x10^3 (test 0.05 10*3/uL 0.00-0.06 code = 7820704038) LYMPH x10^3 (test code 1.59 10*3/uL 1.09-3.23 = 731-0) MONO x10^3 (test code 0.89 10*3/uL 0.36-1.02 = 742-7) EOS x10^3 (test code = 0.20 10*3/uL 0.06-0.53 711-2) BASO x10^3 (test code 0.03 10*3/uL 0.01-0.09 = 704-7) Lab Interpretation Abnormal (test code = 50610-0) [facility] GLUCOSE (AUTOMATED)2021-12-22 17:25:00 Test Item Value Reference Range Interpretation Comments POCT GLU (test code = 8928151570) 249 mg/dL 70-110 H Lab Interpretation (test code = Abnormal 96774-0) [facility] GLUCOSE (AUTOMATED)2021-12-22 12:54:01 Test Item Value Reference Range Interpretation Comments POCT GLU (test code = 0674985922) 188 mg/dL 70-110 H Lab Interpretation (test code = Abnormal 70514-0) [facility] METABOLIC PANEL (NA, K, CL, CO2, GLUCOSE, BUN, CREATININE, CA)2021-12-22 11:48:23 Test Item Value Reference Range Interpretation Comments NA (test code = 137 mmol/L 135-145 9204401832) K (test code = 4.3 mmol/L 3.5-5.0 2405103470) CL (test code = 105 mmol/L 98-108 6814757302) CO2 TOTAL (test code = 23 mmol/L 23-31 6958325152) AGAP (test code = 2-16 4707861661) BUN (test code = 19 mg/dL 7-23 5868297207) GLUCOSE (test code = 243 mg/dL 70-110 H 3372239537) CREATININE (test code = 0.50 mg/dL 0.60-1.25 L 0922909273) CALCIUM (test code = 8.9 mg/dL 8.6-10.6 5242859955) eGFR (test code = mL/min/1.73m2 7184170937) ARPITA (test code = ARPITA) Association of [...] tests). Lab Interpretation Abnormal (test code = 99725-4) [facility] 11:48:23 Test Item Value Reference Range Interpretation Comments MAGNESIUM (test code = 8192672686) 2.1 mg/dL 1.7-2.4 Lab Interpretation (test code = Normal 23805-0) [facility] WITH [id number] 11:09:44 Test Item Value Reference Range Interpretation Comments WBC (test code = See_Comment [Automated message] 6690-2) The system [employer] generated this result transmitted ref erence range: 4.20 - 1 0.70 10*3/?L. The re ference range was not u sed to interpret this result as normal/abnor mal. RBC (test code = See_Comment [Automated message] 789-8) The system [employer] generated this result transmitted ref erence range: [...] RDW-SD (test code 43.6 fL 38.5-51.6 = 20455-6) RDW-CV (test code 13.7 % 12.1-15.4 = 788-0) PLT (test code = See_Comment [Automated message] 777-3) The system [employer] generated this result transmitted ref erence range: 150 - 32 8 10*3/?L. The re ference range was not u sed to interpret this result as normal/abnor mal. MPV (test code = 11.0 fL 9.8-13.0 55483-0) NRBC/100 WBC (test See_Comment [Automat ed message] code = 9161281288) The syste [employer] which generated this result transmitted ref erence range: 0.0 - 10 .0 /100 WBCs. The refer ence range was not u sed to interpret this result as normal/abnor mal. NRBC x10^3 (test <0.01 See_Comment [Automated message] code = 0622101134) The syste m which generated this result transmitted ref erence range: 10*3/?L. The reference range was not used to interpr et this result as normal/abnormal . GRAN MAT (NEUT) % 57.9 % (test code = 770-8) IMM GRAN % (test 0.60 % code = 4721114080) LYMPH % (test code 30.7 % = 736-9) MONO % (test code 8.5 % = 5905-5) EOS % (test code = 2.0 % 713-8) BASO % (test code 0.3 % = 706-2) GRAN MAT 5.14 10*3/uL 1.99-6.95 x10^3(ANC) (test code = 2476608866) IMM GRAN x10^3 0.05 10*3/uL 0.00-0.06 (test code = 5699119779) LYMPH x10^3 (test 2.73 10*3/uL 1.09-3.23 code = 731-0) MONO x10^3 (test 0.76 10*3/uL 0.36-1.02 code = 742-7) EOS x10^3 (test 0.18 10*3/uL 0.06-0.53 code = 711-2) BASO x10^3 (test 0.03 10*3/uL 0.01-0.09 code = 704-7) [facility] GLUCOSE (AUTOMATED)2021-12-22 10:34:14 Test Item Value Reference Range Interpretation Comments POCT GLU (test code = 3125234608) 230 mg/dL 70-110 H Lab Interpretation (test code = Abnormal 57199-6) [facility] GLUCOSE (AUTOMATED)2021-12-22 05:56:50 Test Item Value Reference Range Interpretation Comments POCT GLU (test code = 9784380246) 314 mg/dL 70-110 H Lab Interpretation (test code = Abnormal 41940-3) [facility] GLUCOSE (AUTOMATED)2021-12-22 04:40:22 Test Item Value Reference Range Interpretation Comments POCT GLU (test code = 8278506413) 324 mg/dL 70-110 H Lab Interpretation (test code = Abnormal 31293-6) [facility] GLUCOSE (AUTOMATED)2021-12-22 02:37:33 Test Item Value Reference Range Interpretation Comments POCT GLU (test code = 5983086106) 296 mg/dL 70-110 H Lab Interpretation (test code = Abnormal 36843-5) [facility] GLUCOSE (AUTOMATED)2021-12-22 01:05:02 Test Item Value Reference Range Interpretation Comments POCT GLU (test code = 7868937556) 319 mg/dL 70-110 H Lab Interpretation (test code = Abnormal 12352-0) [facility] GLUCOSE (AUTOMATED)2021-12-21 21:59:09 Test Item Value Reference Range Interpretation Comments POCT GLU (test code = 2777309347) 257 mg/dL 70-110 H Lab Interpretation (test code = Abnormal 27323-1) [facility] GLUCOSE (AUTOMATED)2021-12-21 17:21:41 Test Item Value Reference Range Interpretation Comments POCT GLU (test code = 3187733605) 214 mg/dL 70-110 H Lab Interpretation (test code = Abnormal 27002-6) [facility] GLUCOSE (AUTOMATED)2021-12-21 13:04:04 Test Item Value Reference Range Interpretation Comments POCT GLU (test code = 9823520671) 234 mg/dL 70-110 H Lab Interpretation (test code = Abnormal 63399-8) [facility] METABOLIC PANEL (NA, K, CL, CO2, GLUCOSE, BUN, CREATININE, CA)2021-12-21 12:23:33 Test Item Value Reference Range Interpretation Comments NA (test code = 136 mmol/L 135-145 3245601822) K (test code = 4.1 mmol/L 3.5-5.0 0409282908) CL (test code = 109 mmol/L 98-108 H 4915483815) CO2 TOTAL (test code = 20 mmol/L 23-31 L 9429154528) AGAP (test code = 2-16 2898568772) BUN (test code = 16 mg/dL 7-23 7659796076) GLUCOSE (test code = 281 mg/dL 70-110 H 7578103114) CREATININE (test code = 0.50 mg/dL 0.60-1.25 L 8532728012) CALCIUM (test code = 8.3 mg/dL 8.6-10.6 L 7267354947) eGFR (test code = mL/min/1.73m2 6231863232) ARPITA (test code = ARPITA) Association of [...] tests). Lab Interpretation Abnormal (test code = 09814-9) [facility] 12:23:33 Test Item Value Reference Range Interpretation Comments MAGNESIUM (test code = 9801093921) 1.6 mg/dL 1.7-2.4 L Lab Interpretation (test code = Abnormal 95492-3) [facility] 12:23:13 Test Item Value Reference Range Interpretation Comments PHOSPHORUS (test code = 9987453255) 3.2 mg/dL 2.5-5.0 Lab Interpretation (test code = Normal 72998-1) [facility]A1C)2021-12-21 10:04:37 Test Item Value Reference Range Interpretation Comments HGB A1C (test code = 9.6 % 4.0-5.7 H 4548-4) ARPITA (test code = ARPITA) Reference RangesNormal: <5.7%Prediabetes: 5.7 - 6.4%Diabetes: > 6.5% Lab Interpretation (test Abnormal code = 98595-6) [facility] WITH [id number] 09:29:41 Test Item Value Reference Range Interpretation Comments WBC (test code = See_Comment [Automated message] 6690-2) The system [employer] generated this result transmitted ref erence range: 4.20 - 1 0.70 10*3/?L. The re ference range was not u sed to interpret this result as normal/abnor mal. RBC (test code = See_Comment [Automated message] 249-8) The system [employer] generated this result transmitted ref erence range: [...] RDW-SD (test code 42.5 fL 38.5-51.6 = 88737-5) RDW-CV (test code 13.5 % 12.1-15.4 = 788-0) PLT (test code = See_Comment [Automated message] 777-3) The system [employer] generated this result transmitted ref erence range: 150 - 32 8 10*3/?L. The re ference range was not u sed to interpret this result as normal/abnor mal. MPV (test code = 10.8 fL 9.8-13.0 21970-9) NRBC/100 WBC (test See_Comment [Automat ed message] code = 7182513933) The syste m which generated this result transmitted ref erence range: 0.0 - 10 .0 /100 WBCs. The refer ence range was not u sed to interpret this result as normal/abnor mal. NRBC x10^3 (test <0.01 See_Comment [Automated message] code = 7374237407) The syste m which generated this result transmitted ref erence range: 10*3/?L. The reference range was not used to interpr et this result as normal/abnormal . GRAN MAT (NEUT) % 58.6 % (test code = 770-8) IMM GRAN % (test 0.50 % code = 1221091722) LYMPH % (test code 31.3 % = 736-9) MONO % (test code 6.9 % = 5905-5) EOS % (test code = 2.4 % 713-8) BASO % (test code 0.3 % = 706-2) GRAN MAT 5.39 10*3/uL 1.99-6.95 x10^3(ANC) (test code = 2370338046) IMM GRAN x10^3 0.05 10*3/uL 0.00-0.06 (test code = 8350896447) LYMPH x10^3 (test 2.89 10*3/uL 1.09-3.23 code = 731-0) MONO x10^3 (test 0.64 10*3/uL 0.36-1.02 code = 742-7) EOS x10^3 (test 0.22 10*3/uL 0.06-0.53 code = 711-2) BASO x10^3 (test 0.03 10*3/uL 0.01-0.09 code = 704-7) [facility] GLUCOSE (AUTOMATED)2021-12-21 09:06:33 Test Item Value Reference Range Interpretation Comments POCT GLU (test code = 9310671243) 206 mg/dL 70-110 H Lab Interpretation (test code = Abnormal 51999-8) [facility] GLUCOSE (AUTOMATED)2021-12-21 04:38:41 Test Item Value Reference Range Interpretation Comments POCT GLU (test code = 9074755790) 272 mg/dL 70-110 H Lab Interpretation (test code = Abnormal 94538-8) [facility] GLUCOSE (AUTOMATED)2021-12-21 01:14:47 Test Item Value Reference Range Interpretation Comments POCT GLU (test code = 3046145957) 256 mg/dL 70-110 H Lab Interpretation (test code = Abnormal 90008-8) [facility] GLUCOSE (AUTOMATED)2021-12-20 21:11:19 Test Item Value Reference Range Interpretation Comments POCT GLU (test code = 1715235916) 254 mg/dL 70-110 H Lab Interpretation (test code = Abnormal 51461-7) [facility] GLUCOSE (AUTOMATED)2021-12-20 17:10:33 Test Item Value Reference Range Interpretation Comments POCT GLU (test code = 3782312479) 350 mg/dL 70-110 H Lab Interpretation (test code = Abnormal 91801-6) [facility] GLUCOSE (AUTOMATED)2021-12-20 12:50:18 Test Item Value Reference Range Interpretation Comments POCT GLU (test code = 9480761710) 269 mg/dL 70-110 H Lab Interpretation (test code = Abnormal 63992-6) [facility] Metabolic Panel (NA, K, CL, CO2, GLUCOSE, BUN, CREATININE, CA)2021-12-20 10:18:27 Test Item Value Reference Range Interpretation Comments NA (test code = 137 mmol/L 135-145 5415619041) K (test code = 4.0 mmol/L 3.5-5.0 2576352957) CL (test code = 108 mmol/L 98-108 8421253456) CO2 TOTAL (test code = 23 mmol/L 23-31 9061774868) AGAP (test code = 2-16 7205941945) BUN (test code = 16 mg/dL 7-23 0793121151) GLUCOSE (test code = 386 mg/dL 70-110 H 3121457383) CREATININE (test code = 0.70 mg/dL 0.60-1.25 9906921972) CALCIUM (test code = 8.6 mg/dL 8.6-10.6 4090464030) eGFR (test code = mL/min/1.73m2 6171983550) ARPITA (test code = ARPITA) Association of [...] tests). Lab Interpretation Abnormal (test code = 68213-4) [facility] with [id number] 10:03:31 Test Item Value Reference Range Interpretation Comments WBC (test code = See_Comment [Automated message] 6690-2) The system [employer] generated this result transmitted ref erence range: 4.20 - 1 0.70 10*3/?L. The re ference range was not u sed to interpret this result as normal/abnor mal. RBC (test code = See_Comment [Automated message] 789-8) The system [employer] generated this result transmitted ref erence range: 4.26 - 5 .52 10*6/?L. The re ference range was not u sed to interpret this result as normal/abnor mal. HGB (test code = 15.5 g/dL 12.2-16.4 668-7) HCT (test code = 45.0 % 38.4-49.3 4544-3) MCV (test code = 85.9 fL 81.7-95.6 787-2) MCH (test code = 29.6 pg 26.1-32.7 785-6) MCHC (test code = 34.4 g/dL 31.2-35.0 786-4) RDW-SD (test code 42.5 fL 38.5-51.6 = 83671-0) RDW-CV (test code 13.5 % 12.1-15.4 = 788-0) PLT (test code = See_Comment [Automated message] 777-3) The system [employer] generated this result transmitted ref erence range: 150 - 32 8 10*3/?L. The re ference range was not u sed to interpret this result as normal/abnor mal. MPV (test code = 11.2 fL 9.8-13.0 35217-7) NRBC/100 WBC (test See_Comment [Automat ed message] code = [id number]) The syste m which generated this result transmitted ref erence range: 0.0 - 10 .0 /100 WBCs. The refer ence range was not u sed to interpret this result as normal/abnor mal. NRBC x10^3 (test <0.01 See_Comment [Automated message] code = [id number]) The syste m which generated this result transmitted ref erence range: 10*3/?L. The reference range was not used to interpr et this result as normal/abnormal . GRAN MAT (NEUT) % 63.5 % (test code = 770-8) IMM GRAN % (test 0.30 % code = [id number]) LYMPH % (test code 24.8 % = 736-9) MONO % (test code 8.7 % = 5905-5) EOS % (test code = 2.5 % 713-8) BASO % (test code 0.2 % = 706-2) GRAN MAT 6.05 10*3/uL 1.99-6.95 x10^3(ANC) (test code = 7452196613) IMM GRAN x10^3 0.03 10*3/uL 0.00-0.06 (test code = 8390691931) LYMPH x10^3 (test 2.37 10*3/uL 1.09-3.23 code = 731-0) MONO x10^3 (test 0.83 10*3/uL 0.36-1.02 code = 742-7) EOS x10^3 (test 0.24 10*3/uL 0.06-0.53 code = 711-2) BASO x10^3 (test <0.03 0.01-0.09 code = 704-7) [facility] GLUCOSE (AUTOMATED)2021-12-20 09:00:15 Test Item Value Reference Range Interpretation Comments POCT GLU (test code = 8236801240) 402 mg/dL 70-110 H Lab Interpretation (test code = Abnormal 39324-6) [facility] GLUCOSE (AUTOMATED)2021-12-20 04:54:36 Test Item Value Reference Range Interpretation Comments POCT GLU (test code = 7155377373) 368 mg/dL 70-110 H Lab Interpretation (test code = Abnormal 62585-3) [facility] GLUCOSE (AUTOMATED)2021-12-20 03:13:40 Test Item Value Reference Range Interpretation Comments POCT GLU (test code = 2543168281) 438 mg/dL 70-110 H Lab Interpretation (test code = Abnormal 17516-6) [facility]. METABOLIC PANEL (09002)2021-12-20 01:05:39 Test Item Value Reference Range Interpretation Comments NA (test code = 133 mmol/L 135-145 L 4983433134) K (test code = 4.7 mmol/L 3.5-5.0 3435103791) CL (test code = 99 mmol/L 98-108 4792165437) CO2 TOTAL (test code = 21 mmol/L 23-31 L 4179443121) AGAP (test code = 2-16 5544727550) BUN (test code = 18 mg/dL 7-23 5640418012) GLUCOSE (test code = 660 mg/dL 70-110 HH 5522282367) CREATININE (test code = 0.64 mg/dL 0.60-1.25 3559296279) TOTAL BILI (test code = 1.0 mg/dL 0.1-1.8 4417652039) CALCIUM (test code = 9.7 mg/dL 8.6-10.6 6282910624) T PROTEIN (test code = 7.9 g/dL 6.3-8.2 8894855874) ALBUMIN (test code = 4.4 g/dL 3.5-5.0 0419395535) ALK PHOS (test code = 143 U/L 34-122 H 0443371340) ALTv (test code = 47 U/L 5-50 1742-6) AST(SGOT) (test code = 30 U/L 13-40 7270616434) eGFR (test code = mL/min/1.73m2 1540022822) ARPITA (test code = ARPITA) Association of [...] tests). Lab Interpretation Abnormal (test code = 41985-2) [facility] Test Item Value Reference Range Interpretation Comments LIPASE (test code = 1199190013) 255 U/L 0-220 H Lab Interpretation (test code = Abnormal 42518-7) [facility] WITH [id number] 00:38:14 Test Item Value Reference Range Interpretation [...] RDW-SD (test code = 43.8 fL 38.5-51.6 25333-1) RDW-CV (test code = 13.6 % 12.1-15.4 788-0) PLT (test code = See_Comment [Automated 777-3) message] The sy stem which generated this result transmitted reference range : 150 - 328 10*3/ ?L. The reference r boubacar was not used to interpret this result as normal/abnormal . MPV (test code = 11.4 fL 9.8-13.0 59288-2) NRBC/100 WBC (test See_Comment [Automat ed code = 6403227887) message] The system which generated this result transmitted reference range : 0.0 - 10.0 /100 WBCs. The refer ence range was not u sed to interpret th is result as normal/abnormal . NRBC x10^3 (test code <0.01 See_Comment [Auto mated = 6333088891) message] The s ystem which generated this result transmitted reference range : 10*3/?L. The reference range was not used to interpret this result as normal/abnormal . GRAN MAT (NEUT) % 76.0 % (test code = 770-8) IMM GRAN % (test code 0.50 % = 7265496508) LYMPH % (test code = 15.2 % 736-9) MONO % (test code = 6.5 % 5905-5) EOS % (test code = 1.6 % 713-8) BASO % (test code = 0.2 % 706-2) GRAN MAT x10^3(ANC) 8.55 10*3/uL 1.99-6.95 H (test code = 4861932094) IMM GRAN x10^3 (test 0.06 10*3/uL 0.00-0.06 code = 1794213979) LYMPH x10^3 (test code 1.71 10*3/uL 1.09-3.23 = 731-0) MONO x10^3 (test code 0.73 10*3/uL 0.36-1.02 = 742-7) EOS x10^3 (test code = 0.18 10*3/uL 0.06-0.53 711-2) BASO x10^3 (test code <0.03 0.01-0.09 = 704-7) Lab Interpretation Abnormal (test code = 57812-5) [facility]32:39 Test Item Value Reference Range Interpretation Comments MAGNESIUM (test code = 2517326048) 1.7 mg/dL 1.7-2.4 Lab Interpretation (test code = Normal 24530-7) [facility] METABOLIC PANEL (NA, K, CL, CO2, GLUCOSE, BUN, CREATININE, CA)2021-12-18 18:32:38 Test Item Value Reference Range Interpretation Comments NA (test code = 137 mmol/L 135-145 6828735172) K (test code = 4.3 mmol/L 3.5-5.0 8957920277) CL (test code = 105 mmol/L 98-108 9538573639) CO2 TOTAL (test code = 23 mmol/L 23-31 0234589321) AGAP (test code = 2-16 4605663149) BUN (test code = 17 mg/dL 7-23 2383795560) GLUCOSE (test code = 317 mg/dL 70-110 H 7526127450) CREATININE (test code = 0.57 mg/dL 0.60-1.25 L 0179772820) CALCIUM (test code = 9.3 mg/dL 8.6-10.6 9405304085) eGFR (test code = mL/min/1.73m2 2018282201) ARPITA (test code = ARPITA) Association of [...] tests). Lab Interpretation Abnormal (test code = 42612-2) [facility] WITH [id number] 18:10:18 Test Item Value Reference Range Interpretation Comments WBC (test code = See_Comment [Automated message] 6690-2) The system [employer] generated this result transmitted ref erence range: 4.20 - 1 0.70 10*3/?L. The re ference range was not u sed to interpret this result as normal/abnor mal. RBC (test code = See_Comment [Automated message] 789-8) The system [employer] generated this result transmitted ref erence range: [...] RDW-SD (test code 44.4 fL 38.5-51.6 = 48721-4) RDW-CV (test code 13.8 % 12.1-15.4 = 788-0) PLT (test code = See_Comment [Automated message] 777-3) The system [employer] generated this result transmitted ref erence range: 150 - 32 8 10*3/?L. The re ference range was not u sed to interpret this result as normal/abnor mal. MPV (test code = 10.9 fL 9.8-13.0 55077-9) NRBC/100 WBC (test See_Comment [Automat ed message] code = 4021624623) The [employer] which generated this result transmitted ref erence range: 0.0 - 10 .0 /100 WBCs. The refer ence range was not u sed to interpret this result as normal/abnor mal. NRBC x10^3 (test <0.01 See_Comment [Automated message] code = 3568598452) The syste m which generated this result transmitted ref erence range: 10*3/?L. The reference range was not used to interpr et this result as normal/abnormal . GRAN MAT (NEUT) % 53.4 % (test code = 770-8) IMM GRAN % (test 0.30 % code = 9713071388) LYMPH % (test code 35.3 % = 736-9) MONO % (test code 7.4 % = 5905-5) EOS % (test code = 3.3 % 713-8) BASO % (test code 0.3 % = 706-2) GRAN MAT 3.59 10*3/uL 1.99-6.95 x10^3(ANC) (test code = 3870570202) IMM GRAN x10^3 <0.03 0.00-0.06 (test code = 2169312541) LYMPH x10^3 (test 2.37 10*3/uL 1.09-3.23 code = 731-0) MONO x10^3 (test 0.50 10*3/uL 0.36-1.02 code = 742-7) EOS x10^3 (test 0.22 10*3/uL 0.06-0.53 code = 711-2) BASO x10^3 (test <0.03 0.01-0.09 code = 704-7) [facility] GLUCOSE (AUTOMATED)2021-12-18 16:50:23 Test Item Value Reference Range Interpretation Comments POCT GLU (test code = 6624904139) 304 mg/dL 70-110 H Lab Interpretation (test code = Abnormal 48703-1) [facility] GLUCOSE (AUTOMATED)2021-12-18 12:58:13 Test Item Value Reference Range Interpretation Comments POCT GLU (test code = 2613070803) 364 mg/dL 70-110 H Lab Interpretation (test code = Abnormal 89508-0) [facility] GLUCOSE (AUTOMATED)2021-12-18 09:42:05 Test Item Value Reference Range Interpretation Comments POCT GLU (test code = 6702218336) 369 mg/dL 70-110 H Lab Interpretation (test code = Abnormal 29835-8) [facility] GLUCOSE (AUTOMATED)2021-12-18 05:09:33 Test Item Value Reference Range Interpretation Comments POCT GLU (test code = 8169402368) 332 mg/dL 70-110 H Lab Interpretation (test code = Abnormal 36013-6) [facility] GLUCOSE (AUTOMATED)2021-12-18 01:27:31 Test Item Value Reference Range Interpretation Comments POCT GLU (test code = 1775244030) 349 mg/dL 70-110 H Lab Interpretation (test code = Abnormal 03514-0) [facility] GLUCOSE (AUTOMATED)2021-12-17 21:42:26 Test Item Value Reference Range Interpretation Comments POCT GLU (test code = 1181431522) 372 mg/dL 70-110 H Lab Interpretation (test code = Abnormal 49161-4) [facility] GLUCOSE (AUTOMATED)2021-12-17 17:17:16 Test Item Value Reference Range Interpretation Comments POCT GLU (test code = 9312645460) 329 mg/dL 70-110 H Lab Interpretation (test code = Abnormal 98552-6) [facility] GLUCOSE (AUTOMATED)2021-12-17 14:09:34 Test Item Value Reference Range Interpretation Comments POCT GLU (test code = 6771842265) 350 mg/dL 70-110 H Lab Interpretation (test code = Abnormal 42173-5) [facility] GLUCOSE (AUTOMATED)2021-12-17 09:59:20 Test Item Value Reference Range Interpretation Comments POCT GLU (test code = 8829147578) 342 mg/dL 70-110 H Lab Interpretation (test code = Abnormal 63292-8) [facility] GLUCOSE (AUTOMATED)2021-12-17 01:46:05 Test Item Value Reference Range Interpretation Comments POCT GLU (test code = 6866914497) 318 mg/dL 70-110 H Lab Interpretation (test code = Abnormal 41343-2) [facility] GLUCOSE (AUTOMATED)2021-12-16 21:25:33 Test Item Value Reference Range Interpretation Comments POCT GLU (test code = 7259046814) 212 mg/dL 70-110 H Lab Interpretation (test code = Abnormal 73839-2) [facility] GLUCOSE (AUTOMATED)2021-12-16 16:27:52 Test Item Value Reference Range Interpretation Comments POCT GLU (test code = 7774620415) 226 mg/dL 70-110 H Lab Interpretation (test code = Abnormal 18298-9) [facility] GLUCOSE (AUTOMATED)2021-12-16 15:37:46 Test Item Value Reference Range Interpretation Comments POCT GLU (test code = 1142113637) 204 mg/dL 70-110 H Lab Interpretation (test code = Abnormal 45921-6) [facility]21-12-16 14:39:25 Test Item Value Reference Range Interpretation Comments POCT GLU (test code = 8484662709) 185 mg/dL 70-110 H Lab Interpretation (test code = Abnormal 08799-8) [facility] Metabolic Panel (Na, K, Cl, CO2, Glucose, BUN, Creatinine, Ca)2021-12-16 14:07:03 Test Item Value Reference Range Interpretation Comments NA (test code = 137 mmol/L 135-145 3757451947) K (test code = 4.6 mmol/L 3.5-5.0 5680184482) CL (test code = 111 mmol/L 98-108 H 1386447784) CO2 TOTAL (test code = 22 mmol/L 23-31 L 2432507845) AGAP (test code = 2-16 3991952797) BUN (test code = 12 mg/dL 7-23 8324187192) GLUCOSE (test code = 181 mg/dL 70-110 H 2208528026) CREATININE (test code = 0.70 mg/dL 0.60-1.25 1447095280) CALCIUM (test code = 8.3 mg/dL 8.6-10.6 L 7734422242) eGFR (test code = mL/min/1.73m2 9638366916) ARPITA (test code = ARPITA) Association of [...] tests). Lab Interpretation Abnormal (test code = 50943-4) [facility] GLUCOSE (AUTOMATED)2021-12-16 13:45:48 Test Item Value Reference Range Interpretation Comments POCT GLU (test code = 6286977461) 170 mg/dL 70-110 H Lab Interpretation (test code = Abnormal 75074-0) [facility] GLUCOSE (AUTOMATED)2021-12-16 12:28:12 Test Item Value Reference Range Interpretation Comments POCT GLU (test code = 4998273654) 109 mg/dL 70-110 Lab Interpretation (test code = Normal 28402-6) [facility] GLUCOSE (AUTOMATED)2021-12-16 11:25:37 Test Item Value Reference Range Interpretation Comments POCT GLU (test code = 3432866151) 134 mg/dL 70-110 H Lab Interpretation (test code = Abnormal 54837-2) [facility] Metabolic Panel (Na, K, Cl, CO2, Glucose, BUN, Creatinine, Ca)2021-12-16 10:50:17 Test Item Value Reference Range Interpretation Comments NA (test code = 138 mmol/L 135-145 2577247387) K (test code = 5.1 mmol/L 3.5-5.0 H Slight 4873425465) hemolysis CL (test code = 110 mmol/L 98-108 H 1583358772) CO2 TOTAL (test code 23 mmol/L 23-31 = 4424907712) AGAP (test code = 2-16 7376708650) BUN (test code = 13 mg/dL 7-23 Slight 5500793023) hemolysis GLUCOSE (test code = 131 mg/dL 70-110 H 7870753352) CREATININE (test code 0.73 mg/dL 0.60-1.25 = 1524599159) CALCIUM (test code = 8.9 mg/dL 8.6-10.6 1006227789) eGFR (test code = mL/min/1.73m2 2528039474) ARPITA (test code = ARPITA) Association of [...] tests). Lab Interpretation Abnormal (test code = 18357-1) [facility] GLUCOSE (AUTOMATED)2021-12-16 10:35:11 Test Item Value Reference Range Interpretation Comments POCT GLU (test code = 1924590007) 125 mg/dL 70-110 H Lab Interpretation (test code = Abnormal 44372-3) [facility] GLUCOSE (AUTOMATED)2021-12-16 09:31:05 Test Item Value Reference Range Interpretation Comments POCT GLU (test code = 2518287573) 137 mg/dL 70-110 H Lab Interpretation (test code = Abnormal 91947-0) [facility] GLUCOSE (AUTOMATED)2021-12-16 08:28:48 Test Item Value Reference Range Interpretation Comments POCT GLU (test code = 5350086330) 168 mg/dL 70-110 H Lab Interpretation (test code = Abnormal 68161-7) [facility] GLUCOSE (AUTOMATED)2021-12-16 07:26:17 Test Item Value Reference Range Interpretation Comments POCT GLU (test code = 0372756093) 165 mg/dL 70-110 H Lab Interpretation (test code = Abnormal 52190-0) [facility] Metabolic Panel (Na, K, Cl, CO2, Glucose, BUN, Creatinine, Ca)2021-12-16 07:18:59 Test Item Value Reference Range Interpretation Comments NA (test code = 136 mmol/L 135-145 6112226278) K (test code = 5.1 mmol/L 3.5-5.0 H 6608621991) CL (test code = 108 mmol/L 98-108 8107464801) CO2 TOTAL (test code = 24 mmol/L 23-31 7150584132) AGAP (test code = 2-16 7156182934) BUN (test code = 14 mg/dL 7-23 3383503807) GLUCOSE (test code = 202 mg/dL 70-110 H 9027958841) CREATININE (test code = 0.79 mg/dL 0.60-1.25 9629830480) CALCIUM (test code = 8.9 mg/dL 8.6-10.6 2621130802) eGFR (test code = mL/min/1.73m2 2215964805) ARPITA (test code = ARPITA) Association of [...] tests). Lab Interpretation Abnormal (test code = 66178-9) [id number]-[id number] 06:57:08 Test Item Value Reference Range Interpretation Comments BOH (test code = <0.1 mmol/L 9263605910) ARPITA (test code = Normal Ranges: ? ? ARPITA) Nonfasting ? Less than 0.1 mmol/L ? ? Overnight Fast ? ? ? Less than 0.4 mmol/L ? ? Fasting (1-2 weeks) ?6-8 mmol/L Test developed and characteristics determined by [facility] Laboratory Services. [facility] GLUCOSE (AUTOMATED)2021-12-16 06:24:07 Test Item Value Reference Range Interpretation Comments POCT GLU (test code = 8824010927) 212 mg/dL 70-110 H Lab Interpretation (test code = Abnormal 46730-3) [facility] GLUCOSE (AUTOMATED)2021-12-16 05:28:19 Test Item Value Reference Range Interpretation Comments POCT GLU (test code = 3053451470) 239 mg/dL 70-110 H Lab Interpretation (test code = Abnormal 61060-1) [facility] GLUCOSE (AUTOMATED)2021-12-16 04:29:31 Test Item Value Reference Range Interpretation Comments POCT GLU (test code = 7736211943) 251 mg/dL 70-110 H Lab Interpretation (test code = Abnormal 94283-6) [facility] (Na, K, Cl, CO2, Glucose, BUN, Creatinine, Ca)2021-12-16 03:49:55 Test Item Value Reference Range Interpretation Comments NA (test code = 141 mmol/L 135-145 9485239574) K (test code = 4.2 mmol/L 3.5-5.0 7741043633) CL (test code = 108 mmol/L 98-108 1762050932) CO2 TOTAL (test code = 26 mmol/L 23-31 8890981900) AGAP (test code = 2-16 9015618063) BUN (test code = 14 mg/dL 7-23 4951280593) GLUCOSE (test code = 164 mg/dL 70-110 H 2778203521) CREATININE (test code = 0.84 mg/dL 0.60-1.25 3257246237) CALCIUM (test code = 9.3 mg/dL 8.6-10.6 9742299259) eGFR (test code = mL/min/1.73m2 0422488728) ARPITA (test code = ARPITA) Association of [...] tests). Lab Interpretation Abnormal (test code = 33390-6) [facility] GLUCOSE (AUTOMATED)2021-12-16 03:20:15 Test Item Value Reference Range Interpretation Comments POCT GLU (test code = 3945852198) 174 mg/dL 70-110 H Lab Interpretation (test code = Abnormal 48710-4) [facility] GLUCOSE (AUTOMATED)2021-12-16 02:25:54 Test Item Value Reference Range Interpretation Comments POCT GLU (test code = 2106319346) 158 mg/dL 70-110 H Lab Interpretation (test code = Abnormal 36771-1) [facility] GLUCOSE (AUTOMATED)2021-12-16 01:37:09 Test Item Value Reference Range Interpretation Comments POCT GLU (test code = 1091534801) 219 mg/dL 70-110 H Lab Interpretation (test code = Abnormal 28047-0) [facility] GLUCOSE (AUTOMATED)2021-12-16 00:19:48 Test Item Value Reference Range Interpretation Comments POCT GLU (test code = 7325912098) 345 mg/dL 70-110 H Lab Interpretation (test code = Abnormal 79426-7) [facility] GLUCOSE (AUTOMATED)2021-12-15 22:59:57 Test Item Value Reference Range Interpretation Comments POCT GLU (test code = 6259303163) 318 mg/dL 70-110 H Lab Interpretation (test code = Abnormal 12192-8) [facility] Metabolic Panel (Na, K, Cl, CO2, Glucose, BUN, Creatinine, Ca)2021-12-15 22:41:00 Test Item Value Reference Range Interpretation Comments NA (test code = 140 mmol/L 135-145 4085717994) K (test code = 3.1 mmol/L 3.5-5.0 L 9959664590) CL (test code = 116 mmol/L 98-108 H 6759838644) CO2 TOTAL (test code = 21 mmol/L 23-31 L 9615560076) AGAP (test code = 2-16 8813255691) BUN (test code = 12 mg/dL 7-23 9880920096) GLUCOSE (test code = 281 mg/dL 70-110 H 4773674998) CREATININE (test code = 0.62 mg/dL 0.60-1.25 3690742219) CALCIUM (test code = 7.2 mg/dL 8.6-10.6 L 4349655517) eGFR (test code = mL/min/1.73m2 9985075481) ARPITA (test code = ARPITA) Association of [...] tests). Lab Interpretation Abnormal (test code = 52465-6) [facility] GLUCOSE (AUTOMATED)2021-12-15 21:53:29 Test Item Value Reference Range Interpretation Comments POCT GLU (test code = 8583957668) 368 mg/dL 70-110 H Lab Interpretation (test code = Abnormal 41893-8) [facility] GLUCOSE (AUTOMATED)2021-12-15 20:41:51 Test Item Value Reference Range Interpretation Comments POCT GLU (test code = 9825970896) 458 mg/dL 70-110 HH Lab Interpretation (test code = Abnormal 03120-6) [facility] GLUCOSE (AUTOMATED)2021-12-15 19:00:13 Test Item Value Reference Range Interpretation Comments POCT GLU (test code = 8477942296) 369 mg/dL 70-110 H Lab Interpretation (test code = Abnormal 69143-9) [facility] (Na, K, Cl, CO2, Glucose, BUN, Creatinine, Ca)2021-12-15 18:32:29 Test Item Value Reference Range Interpretation Comments NA (test code = 145 mmol/L 135-145 6120801860) K (test code = 4.8 mmol/L 3.5-5.0 Slight 8307586834) hemolysis CL (test code = 112 mmol/L 98-108 H 4647634809) CO2 TOTAL (test code 26 mmol/L 23-31 = 2165054825) AGAP (test code = 2-16 1211630359) BUN (test code = 16 mg/dL 7-23 Slight 4954209959) hemolysis GLUCOSE (test code = 282 mg/dL 70-110 H 7147467426) CREATININE (test code 0.83 mg/dL 0.60-1.25 = 6253886307) CALCIUM (test code = 10.0 mg/dL 8.6-10.6 2062848551) eGFR (test code = mL/min/1.73m2 9709156581) ARPITA (test code = ARPITA) Association of [...] tests). Lab Interpretation Abnormal (test code = 13134-5) [facility] GLUCOSE (AUTOMATED)2021-12-15 17:45:09 Test Item Value Reference Range Interpretation Comments POCT GLU (test code = 1071478001) 284 mg/dL 70-110 H Lab Interpretation (test code = Abnormal 37990-9) [facility] CenterBetahydroxy-Ycrassgc8449-98-71 16:41:13 Test Item Value Reference Range Interpretation Comments BOH (test code = 0.9 mmol/L 6586253965) ARPITA (test code = Normal Ranges: ? ? ARPITA) Nonfasting ? Less than 0.1 mmol/L ? ? Overnight Fast ? ? ? Less than 0.4 mmol/L ? ? Fasting (1-2 weeks) ?6-8 mmol/L Test developed and characteristics determined by [facility] Laboratory Services. [facility] GLUCOSE (AUTOMATED)2021-12-15 16:33:41 Test Item Value Reference Range Interpretation Comments POCT GLU (test code = 1593396526) 266 mg/dL 70-110 H Lab Interpretation (test code = Abnormal 98022-8) [facility] GLUCOSE (AUTOMATED)2021-12-15 15:30:41 Test Item Value Reference Range Interpretation Comments POCT GLU (test code = 9566631069) 294 mg/dL 70-110 H Lab Interpretation (test code = Abnormal 46030-6) [facility] GLUCOSE (AUTOMATED)2021-12-15 14:23:40 Test Item Value Reference Range Interpretation Comments POCT GLU (test code = 7543607722) 511 mg/dL 70-110 HH Lab Interpretation (test code = Abnormal 70335-9) [facility] [id number] 13:55:53 Test Item Value Reference Range Interpretation Comments WBC (test code = 6690-2) See_Comment H [A utomated message] The system [employer] generated this result transmit lester reference range : 4.20 - 10.70 10*3/?L. The reference range was not used to interpret this result as normal/abnormal . RBC (test code = 789-8) See_Comment H [Au tomated message] The system [employer] generated this result transmit lester reference range [...] See_Comment H [Au tomated message] The system [employer] generated this result transmit lester reference range : 150 - 328 10*3/?L. The reference range was not used to interpret this result as normal/abnormal . MPV (test code = 11.0 fL 9.8-13.0 85972-4) RDW-CV (test code = 14.2 % 12.1-15.4 788-0) RDW-SD (test code = 44.8 fL 38.5-51.6 23697-0) NRBC x10^3 (test code = <0.01 See_Comment [Au tomated message] 7638895390) The system [employer] generated this result transmit lester reference range : 10*3/?L. The reference range was not used to interpret this result as normal/abnormal . NRBC/100 WBC (test code See_Comment [Au tomated message] = 5106584299) The system [facility] generated this result transmit lester reference range : 0.0 - 10.0 /100 WBC s. The reference r boubacar was not used to interpret this result as normal/abnormal . IPF % (test code = 8761924671) Lab Interpretation (test Abnormal code = 65250-4) [facility] GLUCOSE (AUTOMATED)2021-12-15 13:34:21 Test Item Value Reference Range Interpretation Comments POCT GLU (test code = 1152390501) 538 mg/dL 70-110 HH Lab Interpretation (test code = Abnormal 66238-1) [facility] GLUCOSE (AUTOMATED)2021-12-15 13:30:43 Test Item Value Reference Range Interpretation Comments POCT GLU (test code = 4693182650) >600 70-110 HH Lab Interpretation (test code = Abnormal 86190-3) [facility] GLUCOSE (AUTOMATED)2021-12-15 13:30:43 Test Item Value Reference Range Interpretation Comments POCT GLU (test code = 4462097032) >600 70-110 HH Lab Interpretation (test code = Abnormal 19704-6) [facility] GLUCOSE (AUTOMATED)2021-12-15 13:30:43 Test Item Value Reference Range Interpretation Comments POCT GLU (test code = >600 70-110 HH Notifi ed Provider 7278344438) Lab Interpretation (test Abnormal code = 60236-1) [facility] GLUCOSE (AUTOMATED)2021-12-15 13:30:43 Test Item Value Reference Range Interpretation Comments POCT GLU (test code = 1349296333) >600 70-110 HH Lab Interpretation (test code = Abnormal 35963-7) [facility] GLUCOSE (AUTOMATED)2021-12-15 13:30:38 Test Item Value Reference Range Interpretation Comments POCT GLU (test code = 4564452823) >600 70-110 HH Lab Interpretation (test code = Abnormal 06545-3) [facility] GLUCOSE (AUTOMATED)2021-12-15 13:30:38 Test Item Value Reference Range Interpretation Comments POCT GLU (test code = 1009908611) >600 70-110 HH Lab Interpretation (test code = Abnormal 26868-9) [facility] Center[facility]smolality [id number] 12:37:44 Test Item Value Reference Range Interpretation Comments OSMOLALITY (test code = See_Comment HH [Au tomated message] 9552-2) The system [employer] generated this result transmitted ref erence range: 278 - 30 5 mOsm/kg. The reference range was not used to int erpret this result as normal/abnormal . Lab Interpretation (test Abnormal code = 96223-2) [facility] Metabolic Panel (Na, K, Cl, CO2, Glucose, BUN, Creatinine, Ca)2021-12-15 12:23:35 Test Item Value Reference Range Interpretation Comments NA (test code = 145 mmol/L 135-145 8501750620) K (test code = 4.4 mmol/L 3.5-5.0 6713895286) CL (test code = 109 mmol/L 98-108 H 5880198525) CO2 TOTAL (test code = 21 mmol/L 23-31 L 8739740843) AGAP (test code = 2-16 9397360033) BUN (test code = 15 mg/dL 7-23 8985418224) GLUCOSE (test code = 753 mg/dL 70-110 HH 2800891533) CREATININE (test code = 0.79 mg/dL 0.60-1.25 7233052388) CALCIUM (test code = 10.9 mg/dL 8.6-10.6 H 9257752786) eGFR (test code = mL/min/1.73m2 3581135083) ARPITA (test code = ARPITA) Association of [...] tests). Lab Interpretation Abnormal (test code = 30246-2) [facility] 12:14:56 Test Item Value Reference Range Interpretation Comments POCT GLU (test code = 4256126295) 564 mg/dL 70-110 HH Lab Interpretation (test code = Abnormal 62934-4) [facility] CenterMagnesium [id number] 12:05:40 Test Item Value Reference Range Interpretation Comments MAGNESIUM (test code = 6362602502) 2.5 mg/dL 1.7-2.4 H Lab Interpretation (test code = Abnormal 96245-5) [facility]20[facility] 12:05:20 Test Item Value Reference Range Interpretation Comments MAGNESIUM (test code = 2036012068) 2.5 mg/dL 1.7-2.4 H Lab Interpretation (test code = Abnormal 11714-7) [facility] CenterPhosphorus [id number] 12:05:20 Test Item Value Reference Range Interpretation Comments PHOSPHORUS (test code = 7064765350) 6.2 mg/dL 2.5-5.0 H Lab Interpretation (test code = Abnormal 68088-2) [facility] CenterAC [facility] 21 + LACTIC [id number] 05:53:48 Test Item Value Reference Range Interpretation Comments PH (test code = 7.32-7.42 0135899008) PCO2 SETVO (test code See_Comment [Automa lester = 7812788057) message] The system which generated this result transmitted reference range : 41 - 51 mmHg. T he reference range was not used to interpret this result as normal/abnormal . PO2 STEVO (test code = See_Comment HH [Autom ated 0923333241) message] The system which generated this result transmitted reference range : 25 - 40 mmHg. T he reference range was not used to interpret this result as normal/abnormal . HCO3 STEVO (test code See_Comment L [Automa lester = 5578064376) message] The system which generated this result transmitted reference range : 24 - 28 mEq/L. The reference range was not used to interpr et this result as normal/abnormal . AC VBE(BEAKER) (test mEq/L code = 4318414588) THB STEVO (test code = 17.7 g/dL 13.5-18.0 4539927873) %O2HB STEVO (test code 93.8 % 52.0-63.0 H = 9403761117) %COHB STEVO (test code 2.1 % 0.0-1.5 H = 6492129143) %METHB STEVO (test 0.1 % 0.4-1.5 L code = 9586598236) VOL%O2 STEVO (test 23.3 % 6.0-12.0 H code = 6269814919) NA (test code = 142 mmol/L 135-145 3483866706) K+ (test code = 4.4 mmol/L 3.5-5.0 2074262900) AC CA IONZ (test 5.40 mg/dL 4.50-5.30 H code = 2676173219) GLUCOSE (test code = <20 70-110 LL 8109149602) LACTIC ACID (test 3.37 mmol/L 0.50-2.20 H code = 6955326042) ARPITA (test code = *ac gluc ARPITA) unmeasurable Lab Interpretation Abnormal (test code = 01380-5) [facility]. METABOLIC PANEL (80852)2021-12-15 04:59:53 Test Item Value Reference Range Interpretation Comments NA (test code = 140 mmol/L 135-145 4855630769) K (test code = 4.8 mmol/L 3.5-5.0 2562235166) CL (test code = 100 mmol/L 98-108 7195668707) CO2 TOTAL (test code = 20 mmol/L 23-31 L 8405420469) AGAP (test code = 2-16 H 5128984050) BUN (test code = 14 mg/dL 7-23 7421963277) GLUCOSE (test code = 1083 mg/dL 70-110 HH 2669698473) CREATININE (test code = 0.80 mg/dL 0.60-1.25 4336779244) TOTAL BILI (test code = 1.0 mg/dL 0.1-1.0 9195592285) CALCIUM (test code = 12.0 mg/dL 8.6-10.6 H 3450141704) T PROTEIN (test code = 8.1 g/dL 6.3-8.2 6621004373) ALBUMIN (test code = 4.7 g/dL 3.5-5.0 7716610850) ALK PHOS (test code = 173 U/L 34-122 H 5171315815) ALTv (test code = 36 U/L 5-50 1742-6) AST(SGOT) (test code = 18 U/L 13-40 8447610956) eGFR (test code = mL/min/1.73m2 5116249461) ARPITA (test code = ARPITA) Association of [...] tests). Lab Interpretation Abnormal (test code = 08656-9) [facility] CenterCIERRAMCLEOD HEALTH DILLONMONTSERRAT [id number] 03:51:43 Test Item Value Reference Interpretation Comments Range TROPONIN I (test <0.012 See_Comment [Automated code = 0895237299) message] The system which generated this result [...] biotin. Lab Interpretation Normal (test code = 05887-6) [facility] CenterN-TERMINAL [id number] 03:48:23 Test Item Value Reference Range Interpretation Comments NT-proBNP (test code 71 pg/mL See_Comment [Autom ated = 0117899332) message] The system which generated this result transmitted reference range : <=125. The reference range was not used to interpret this result as normal/abnormal . ARPITA (test code = ARPITA) Biotin has been reported to cause a negative bias, interpret results relative to patient's use of biotin. Lab Interpretation Normal (test code = 03483-3) [facility] CenterN-[facility]MINAL [id number] 03:48:23 Test Item Value Reference Range Interpretation Comments NT-proBNP (test code 71 pg/mL See_Comment [Autom ated = 2166425565) message] The system which generated this result transmitted reference range : <=125. The reference range was not used to interpret this result as normal/abnormal . ARPITA (test code = ARPITA) Biotin has been reported to cause a negative bias, interpret results relative to patient's use of biotin. Lab Interpretation Normal (test code = 06794-8) [facility] CenterLIPASE2022-06-03 03:39:44 Test Item Value Reference Range Interpretation Comments LIPASE (test code = 9222347233) 120 U/L 0-220 Lab Interpretation (test code = Normal 69159-3) [facility] CenterACTIVATED PARTIAL THRMPLAS [id number] 03:38:23 Test Item Value Reference Range Interpretation Comments APTT Patient (test See_Comment [Automat ed code = 3173-2) message] The system which generated this result transmitted reference range : 23 - 38 Seconds . The reference range was not used to interpr et this result as normal/abnormal . ARPITA (test code = ARPITA) [facility] patient population mean normal value for aPTT is 30 seconds. Lab Interpretation Normal (test code = 52385-8) [facility] CenterACTIVATED PARTIAL THRMPLAS [id number] 03:38:23 Test Item Value Reference Range Interpretation Comments APTT Patient (test See_Comment [Automat ed code = 3173-2) message] The system which generated this result transmitted reference range : 23 - 38 Seconds . The reference range was not used to interpr et this result as normal/abnormal . ARPITA (test code = ARPITA) The [facility] patient population mean normal value for aPTT is 30 seconds. Lab Interpretation Normal (test code = 60577-1) [facility] CenterPROTHROMBIN TIME / [id number] 03:36:22 Test Item Value Reference Range Interpretation [...] tions. Lab Interpretation (test Normal code = 79180-6) [facility] CenterCBC WITH [id number] 03:35:42 Test Item Value Reference Range Interpretation Comments WBC (test code = See_Comment H [Automated 3790-2) message] The system which generated this result [...] RDW-SD (test code = 44.7 fL 38.5-51.6 86177-9) RDW-CV (test code = 14.2 % 12.1-15.4 788-0) PLT (test code = See_Comment H [Automated 777-3) message] The system which generated this result transmit lester reference range : 150 - 328 10*3/ ?L. The reference range was not u sed to interpret th is result as normal/abnormal . MPV (test code = 11.5 fL 9.8-13.0 65854-5) NRBC/100 WBC (test See_Comment [Automat ed code = 7224350359) message] The system which generated this result transmit lester reference range : 0.0 - 10.0 /100 WBCs. The reference range was not used to interpret this result as normal/abnormal . NRBC x10^3 (test code <0.01 See_Comment [Auto mated = 9173007440) message] The system which generated this result transmit lester reference range : 10*3/?L. The reference range was not used to interpret this result as normal/abnormal . GRAN MAT (NEUT) % 85.2 % (test code = 770-8) IMM GRAN % (test code 0.90 % = 0629970487) LYMPH % (test code = 5.9 % 736-9) MONO % (test code = 7.8 % 5905-5) EOS % (test code = 0.0 % 713-8) BASO % (test code = 0.2 % 706-2) GRAN MAT x10^3(ANC) 12.85 10*3/uL 1.99-6.95 H (test code = 1248269424) IMM GRAN x10^3 (test 0.13 10*3/uL 0.00-0.06 H code = 2062710508) LYMPH x10^3 (test code 0.89 10*3/uL 1.09-3.23 L = 731-0) MONO x10^3 (test code 1.17 10*3/uL 0.36-1.02 H = 742-7) EOS x10^3 (test code = <0.03 0.06-0.53 L 711-2) BASO x10^3 (test code 0.03 10*3/uL 0.01-0.09 = 704-7) Lab Interpretation Abnormal (test code = 41396-2) [facility] CenterLactic Acid Whole [id number] 03:22:23 Test Item Value Reference Range Interpretation Comments LACTIC ACID (test code = 4.52 mmol/L 0.50-2.20 H 8255410556) Lab Interpretation (test code = Abnormal 07864-0) [facility] (NA, K, CL, CO2, GLUCOSE, BUN, CREATININE, CA)2021-11-28 11:13:09 Test Item Value Reference Range Interpretation Comments NA (test code = 137 mmol/L 135-145 5438396529) K (test code = 4.8 mmol/L 3.5-5.0 8404022105) CL (test code = 101 mmol/L 98-108 4391857813) CO2 TOTAL (test code = 24 mmol/L 23-31 7367896377) AGAP (test code = 2-16 6702443611) BUN (test code = 17 mg/dL 7-23 9125691290) GLUCOSE (test code = 323 mg/dL 70-110 H 9056423025) CREATININE (test code = 0.56 mg/dL 0.60-1.25 L 5548555524) CALCIUM (test code = 9.6 mg/dL 8.6-10.6 1748732307) eGFR (test code = mL/min/1.73m2 9833870508) ARPITA (test code = ARPITA) Association of [...] tests). Lab Interpretation Abnormal (test code = 71173-8) [facility] WITH [id number] 10:49:07 Test Item Value Reference Range Interpretation Comments WBC (test code = See_Comment H [Automated 8934-2) message] The sy stem which generated this result transmitted reference range : 4.20 - 10.70 10*3/?L. The reference range was not used to interpret this result as normal/abnormal . RBC (test code = See_Comment [Automated 170-8) message] The sy stem which generated this [...] RDW-SD (test code = 46.7 fL 38.5-51.6 39094-8) RDW-CV (test code = 14.5 % 12.1-15.4 788-0) PLT (test code = See_Comment H [Automated 777-3) message] The sy stem which generated this result transmitted reference range : 150 - 328 10*3/ ?L. The reference r boubacar was not used to interpret this result as normal/abnormal . MPV (test code = 10.2 fL 9.8-13.0 96345-3) NRBC/100 WBC (test See_Comment [Automat ed code = 3957678758) message] The system which generated this result transmitted reference range : 0.0 - 10.0 /100 WBCs. The refer ence range was not u sed to interpret th is result as normal/abnormal . NRBC x10^3 (test code <0.01 See_Comment [Auto mated = 3155251951) message] The s ystem which generated this result transmitted reference range : 10*3/?L. The reference range was not used to interpret this result as normal/abnormal . GRAN MAT (NEUT) % 70.2 % (test code = 770-8) IMM GRAN % (test code 0.80 % = 0466837518) LYMPH % (test code = 18.0 % 736-9) MONO % (test code = 8.5 % 5905-5) EOS % (test code = 2.1 % 713-8) BASO % (test code = 0.4 % 706-2) GRAN MAT x10^3(ANC) 7.63 10*3/uL 1.99-6.95 H (test code = 0480992954) IMM GRAN x10^3 (test 0.09 10*3/uL 0.00-0.06 H code = 6678803478) LYMPH x10^3 (test code 1.96 10*3/uL 1.09-3.23 = 731-0) MONO x10^3 (test code 0.92 10*3/uL 0.36-1.02 = 742-7) EOS x10^3 (test code = 0.23 10*3/uL 0.06-0.53 711-2) BASO x10^3 (test code 0.04 10*3/uL 0.01-0.09 = 704-7) Lab Interpretation Abnormal (test code = 18453-9) [facility] METABOLIC PANEL (NA, K, CL, CO2, GLUCOSE, BUN, CREATININE, CA)2021-11-27 09:48:58 Test Item Value Reference Range Interpretation Comments NA (test code = 135 mmol/L 135-145 9863527693) K (test code = 4.7 mmol/L 3.5-5.0 4017223396) CL (test code = 101 mmol/L 98-108 7687733072) CO2 TOTAL (test code = 23 mmol/L 23-31 0405875447) AGAP (test code = 2-16 9670456252) BUN (test code = 18 mg/dL 7-23 6263302485) GLUCOSE (test code = 346 mg/dL 70-110 H 2769743203) CREATININE (test code = 0.64 mg/dL 0.60-1.25 7194207136) CALCIUM (test code = 9.1 mg/dL 8.6-10.6 7903118539) eGFR (test code = mL/min/1.73m2 6999479169) ARPITA (test code = ARPITA) Association of [...] tests). Lab Interpretation Abnormal (test code = 00445-7) [facility] WITH [id number] 09:06:55 Test Item Value Reference Range Interpretation Comments WBC (test code = See_Comment [Automated 4351-2) message] The sy stem which generated this result transmitted reference range : 4.20 - 10.70 10*3/?L. The reference range was not used to interpret this result as normal/abnormal . RBC (test code = See_Comment [Automated 722-8) message] The sy stem which generated this [...] RDW-SD (test code = 47.7 fL 38.5-51.6 33419-1) RDW-CV (test code = 14.6 % 12.1-15.4 788-0) PLT (test code = See_Comment [Automated 037-3) message] The sy stem which generated this result transmitted reference range : 150 - 328 10*3/ ?L. The reference r boubacar was not used to interpret this result as normal/abnormal . MPV (test code = 9.9 fL 9.8-13.0 63990-3) NRBC/100 WBC (test See_Comment [Automat ed code = 8736086232) message] The system which generated this result transmitted reference range : 0.0 - 10.0 /100 WBCs. The refer ence range was not u sed to interpret th is result as normal/abnormal . NRBC x10^3 (test code <0.01 See_Comment [Auto mated = 7744978815) message] The s ystem which generated this result transmitted reference range : 10*3/?L. The reference range was not used to interpret this result as normal/abnormal . GRAN MAT (NEUT) % 62.6 % (test code = 770-8) IMM GRAN % (test code 1.30 % = 9958110945) LYMPH % (test code = 23.2 % 736-9) MONO % (test code = 9.6 % 5905-5) EOS % (test code = 2.9 % 713-8) BASO % (test code = 0.4 % 706-2) GRAN MAT x10^3(ANC) 5.85 10*3/uL 1.99-6.95 (test code = 7525288697) IMM GRAN x10^3 (test 0.12 10*3/uL 0.00-0.06 H code = 6049525560) LYMPH x10^3 (test code 2.17 10*3/uL 1.09-3.23 = 731-0) MONO x10^3 (test code 0.90 10*3/uL 0.36-1.02 = 742-7) EOS x10^3 (test code = 0.27 10*3/uL 0.06-0.53 711-2) BASO x10^3 (test code 0.04 10*3/uL 0.01-0.09 = 704-7) Lab Interpretation Abnormal (test code = 71288-5) [facility] CenterBL[facility] [id number] 02:01:46 Test Item Value Reference Range Interpretation Comments Blood Culture-Aerobic No organisms No growth Previo us (test code = 41588-6) isolated prelim inary verified result was Culture [...] Culture-Anaerobic isolated preliminar y (test code = 59709-2) verifi ed result was Culture In Progress [...] CDT Lab Interpretation Normal (test code = 62585-8) [facility]BL[facility] [id number] 02:01:46 Test Item Value Reference Range Interpretation Comments Blood Culture-Aerobic No organisms No growth Previo us (test code = 25293-5) isolated prelim inary verified result was Culture [...] Culture-Anaerobic isolated preliminar y (test code = 69050-3) verifi ed result was Culture In Progress [...] CDT Lab Interpretation Normal (test code = 69494-2) [facility] [id number] 12:18:49 Test Item Value Reference Range Interpretation Comments NT-proBNP (test code 117 pg/mL See_Comment [Autom ated = 8379861115) message] The system which generated this result transmitted reference range : <=125. The reference range was not used to interpret this result as normal/abnormal . ARPITA (test code = ARPITA) Biotin has been reported to cause a negative bias, interpret results relative to patient's use of biotin. Lab Interpretation Normal (test code = 58683-3) [facility]. METABOLIC PANEL (33888)2021-11-24 12:10:25 Test Item Value Reference Range Interpretation Comments NA (test code = 137 mmol/L 135-145 1786638610) K (test code = 4.6 mmol/L 3.5-5.0 5098990467) CL (test code = 108 mmol/L 98-108 6039343789) CO2 TOTAL (test code = 20 mmol/L 23-31 L 9361259375) AGAP (test code = 2-16 7100534780) BUN (test code = 12 mg/dL 7-23 8893880219) GLUCOSE (test code = 186 mg/dL 70-110 H 7019723719) CREATININE (test code = 0.49 mg/dL 0.60-1.25 L 4402404457) TOTAL BILI (test code = 0.7 mg/dL 0.1-1.2 4008684030) CALCIUM (test code = 8.7 mg/dL 8.6-10.6 8620269187) T PROTEIN (test code = 6.9 g/dL 6.3-8.2 0925816036) ALBUMIN (test code = 3.7 g/dL 3.5-5.0 3308146683) ALK PHOS (test code = 114 U/L 34-122 8263122399) ALTv (test code = 75 U/L 5-50 H 1742-6) AST(SGOT) (test code = 27 U/L 13-40 7205530075) eGFR (test code = mL/min/1.73m2 8164935627) ARPITA (test code = ARPITA) Association of [...] tests). Lab Interpretation Abnormal (test code = 57182-1) [facility] WITH [id number] 11:14:25 Test Item Value Reference Range Interpretation Comments WBC (test code = See_Comment [Automated 2099-2) message] The sy stem which generated this result transmitted reference range : 4.20 - 10.70 10*3/?L. The reference range was not used to interpret this result as normal/abnormal . RBC (test code = See_Comment [Automated 564-0) message] The sy stem which generated this [...] RDW-SD (test code = 48.7 fL 38.5-51.6 10448-2) RDW-CV (test code = 15.0 % 12.1-15.4 788-0) PLT (test code = See_Comment [Automated 777-3) message] The sy stem which generated this result transmitted reference range : 150 - 328 10*3/ ?L. The reference r boubacar was not used to interpret this result as normal/abnormal . MPV (test code = 10.4 fL 9.8-13.0 88977-9) NRBC/100 WBC (test See_Comment [Automat ed code = 8351394801) message] The system which generated this result transmitted reference range : 0.0 - 10.0 /100 WBCs. The refer ence range was not u sed to interpret th is result as normal/abnormal . NRBC x10^3 (test code <0.01 See_Comment [Auto mated = 4565719623) message] The s ystem which generated this result transmitted reference range : 10*3/?L. The reference range was not used to interpret this result as normal/abnormal . GRAN MAT (NEUT) % 65.5 % (test code = 770-8) IMM GRAN % (test code 0.80 % = 0431549972) LYMPH % (test code = 20.9 % 736-9) MONO % (test code = 9.7 % 5905-5) EOS % (test code = 2.7 % 713-8) BASO % (test code = 0.4 % 706-2) GRAN MAT x10^3(ANC) 5.41 10*3/uL 1.99-6.95 (test code = 5255891064) IMM GRAN x10^3 (test 0.07 10*3/uL 0.00-0.06 H code = 4233009312) LYMPH x10^3 (test code 1.73 10*3/uL 1.09-3.23 = 731-0) MONO x10^3 (test code 0.80 10*3/uL 0.36-1.02 = 742-7) EOS x10^3 (test code = 0.22 10*3/uL 0.06-0.53 711-2) BASO x10^3 (test code 0.03 10*3/uL 0.01-0.09 = 704-7) Lab Interpretation Abnormal (test code = 31719-5) [facility] [id number] 13:16:44 Test Item Value Reference Range Interpretation Comments NT-proBNP (test code 157 pg/mL See_Comment H [Autom ated = 5453406260) message] The system which generated this result transmitted reference range : <=125. The reference range was not used to interpret this result as normal/abnormal . ARPITA (test code = ARPITA) Biotin has been reported to cause a negative bias, interpret results relative to patient's use of biotin. Lab Interpretation Abnormal (test code = 54123-0) [facility] CenterCOMP[facility] MET[facility]OLIC PAN[facility] (25642)2021-11-23 13:08:45 Test Item Value Reference Range Interpretation Comments NA (test code = 141 mmol/L 135-145 5342623287) K (test code = 4.2 mmol/L 3.5-5.0 3434004281) CL (test code = 110 mmol/L 98-108 H 8185499016) CO2 TOTAL (test code = 24 mmol/L 23-31 2684534280) AGAP (test code = 2-16 3816724769) BUN (test code = 11 mg/dL 7-23 3664410650) GLUCOSE (test code = 142 mg/dL 70-110 H 9763619385) CREATININE (test code = 0.61 mg/dL 0.60-1.25 6524226260) TOTAL BILI (test code = 0.7 mg/dL 0.1-1.4 3672915387) CALCIUM (test code = 8.5 mg/dL 8.6-10.6 L 7326148868) T PROTEIN (test code = 6.7 g/dL 6.3-8.2 2633734841) ALBUMIN (test code = 3.6 g/dL 3.5-5.0 8576579580) ALK PHOS (test code = 120 U/L 34-122 3950432741) ALTv (test code = 88 U/L 5-50 H 1741-) AST(SGOT) (test code = 27 U/L 13-40 0434102619) eGFR (test code = mL/min/1.73m2 5081326055) ARPITA (test code = ARPITA) Association of [...] tests). Lab Interpretation Abnormal (test code = 12525-2) [facility] CenterMAGN[facility]IUM2022-[facility]-12 13:08:45 Test Item Value Reference Range Interpretation Comments MAGNESIUM (test code = 6104963623) 1.7 mg/dL 1.7-2.4 Lab Interpretation (test code = Normal 96883-1) [facility] WITH [id number] 11:57:56 Test Item Value Reference Range Interpretation Comments WBC (test code = See_Comment [Automated 3590-2) message] The sy stem which generated this [...] RDW-SD (test code = 48.9 fL 38.5-51.6 46786-7) RDW-CV (test code = 14.9 % 12.1-15.4 788-0) PLT (test code = See_Comment [Automated 777-3) message] The sy stem which generated this result transmitted reference range : 150 - 328 10*3/ ?L. The reference r boubacar was not used to interpret this result as normal/abnormal . MPV (test code = 9.4 fL 9.8-13.0 L 05212-8) NRBC/100 WBC (test See_Comment [Automat ed code = 0163861493) message] The system which generated this result transmitted reference range : 0.0 - 10.0 /100 WBCs. The refer ence range was not u sed to interpret th is result as normal/abnormal . NRBC x10^3 (test code <0.01 See_Comment [Auto mated = 0490298884) message] The s ystem which generated this result transmitted reference range : 10*3/?L. The reference range was not used to interpret this result as normal/abnormal . GRAN MAT (NEUT) % 63.9 % (test code = 770-8) IMM GRAN % (test code 0.70 % = 6101755549) LYMPH % (test code = 22.7 % 736-9) MONO % (test code = 9.6 % 5905-5) EOS % (test code = 2.7 % 713-8) BASO % (test code = 0.4 % 706-2) GRAN MAT x10^3(ANC) 4.75 10*3/uL 1.99-6.95 (test code = 1520926489) IMM GRAN x10^3 (test 0.05 10*3/uL 0.00-0.06 code = 5971469293) LYMPH x10^3 (test code 1.69 10*3/uL 1.09-3.23 = 731-0) MONO x10^3 (test code 0.71 10*3/uL 0.36-1.02 = 742-7) EOS x10^3 (test code = 0.20 10*3/uL 0.06-0.53 711-2) BASO x10^3 (test code 0.03 10*3/uL 0.01-0.09 = 704-7) Lab Interpretation Abnormal (test code = 60771-7) [facility] CenterVIT[facility] B12, [id number] 19:18:39 Test Item Value Reference Range Interpretation Comments VIT B12 (test code = 249 pg/mL 240-930 8977538496) ARPITA (test code = ARPITA) Biotin has been reported to cause a positive bias, interpret results relative to patient's use of biotin. Lab Interpretation (test Normal code = 70422-1) [facility] CenterV[facility] B12, [id number] 19:18:39 Test Item Value Reference Range Interpretation Comments VIT B12 (test code = 249 pg/mL 240-930 9858464947) ARPITA (test code = ARPITA) Biotin has been reported to cause a positive bias, interpret results relative to patient's use of biotin. Lab Interpretation (test Normal code = 77234-7) [facility] CenterVIT[facility] D, [id number] 17:30:28 Test Item Value Reference Range Interpretation Comments VIT D 25OH (test code = 16 ng/mL 25-80 L 49693-3) ARPITA (test code = ARPITA) Deficiency: <20 ng/mLInsufficiency: 20-24 ng/mLOptimal: 25-80 ng/mL Lab Interpretation (test Abnormal code = 69080-0) [facility] D, [id number] 17:30:28 Test Item Value Reference Range Interpretation Comments VIT D 25OH (test code = 16 ng/mL 25-80 L 02133-5) ARPITA (test code = ARPITA) Deficiency: <20 ng/mLInsufficiency: 20-24 ng/mLOptimal: 25-80 ng/mL Lab Interpretation (test Abnormal code = 52601-4) [facility] CenterPROCALCITONIN2022-05-11 16:07:32 Test Item Value Reference Interpretation Comments Range Procalcitonin (test 0.04 ng/mL See_Comment [Automa lester code = 6949166268) message] The system which generated this result [...] lung abscess/empyema. For further information please refer to:[email or web address] Lab Interpretation Normal (test code = 18788-5) [facility]:07[facility]32 Test Item Value Reference Range Interpretation Comments Procalcitonin (test 0.04 ng/mL <0.07 code = 8643327287) ARPITA (test code = ARPITA) INTERPRETATION OF [...] lung abscess/empyema. For further information please refer to:[email or web address] Lab Interpretation Normal (test code = 36112-8) [facility] [facility] [id number] 13:21:10 Test Item Value Reference Range Interpretation Comments ESR (test code = See_Comment H [Automated message] [id number]) The system [employer] generated this result transmitted ref erence range: 0 - 10 m m/HR. The reference r boubacar was not used to interpret this result as normal/abnor mal. Lab Interpretation (test Abnormal code = 59319-9) [facility]GLY[facility]YL[facility]EM[facility]GLOBIN (A1C)2021-11-22 13:12:27 Test Item Value Reference Range Interpretation Comments HGB A1C (test code = 6.3 % 4.0-5.7 H 4548-4) ARPITA (test code = ARPITA) Reference RangesNormal: <5.7%Prediabetes: 5.7 - 6.4%Diabetes: > 6.5% Lab Interpretation (test Abnormal code = 51928-5) [facility] MYI-[id number] 11:53:14 Test Item Value Reference Range Interpretation Comments NT-proBNP (test code 16 pg/mL See_Comment [Autom ated = 5408945635) message] The system which generated this result transmitted reference range : <=125. The reference range was not used to interpret this result as normal/abnormal . ARPITA (test code = ARPITA) Biotin has been reported to cause a negative bias, interpret results relative to patient's use of biotin. Lab Interpretation Normal (test code = 01952-4) [facility] CenterCOMP[facility] METABOLIC PANEL ([id number])2021-11-22 11:44:55 Test Item Value Reference Range Interpretation Comments NA (test code = 142 mmol/L 135-145 8751550566) K (test code = 3.9 mmol/L 3.5-5.0 4209823307) CL (test code = 108 mmol/L 98-108 4753395378) CO2 TOTAL (test code = 24 mmol/L 23-31 5865768925) AGAP (test code = 2-16 6769924745) BUN (test code = 11 mg/dL 7-23 7777318710) GLUCOSE (test code = 205 mg/dL 70-110 H 5677227213) CREATININE (test code = 0.71 mg/dL 0.60-1.25 6574774685) TOTAL BILI (test code = 0.7 mg/dL 0.1-1.0 7561072320) CALCIUM (test code = 8.9 mg/dL 8.6-10.6 3048243548) T PROTEIN (test code = 7.3 g/dL 6.3-8.2 0824875331) ALBUMIN (test code = 3.8 g/dL 3.5-5.0 8506503430) ALK PHOS (test code = 135 U/L 34-122 H 0207430480) ALTv (test code = 120 U/L 5-50 H 2-6) AST(SGOT) (test code = 33 U/L 13-40 8411532876) eGFR (test code = mL/min/1.73m2 6503111519) ARPITA (test code = ARPITA) Association of [...] tests). Lab Interpretation Abnormal (test code = 73778-4) [facility] Test Item Value Reference Range Interpretation Comments MAGNESIUM (test code = 3951778484) 1.6 mg/dL 1.7-2.4 L Lab Interpretation (test code = Abnormal 63163-9) [facility]PHOS[facility]ORUS2022-[facility]-11 11:44:35 Test Item Value Reference Range Interpretation Comments PHOSPHORUS (test code = 0942909521) 4.1 mg/dL 2.5-5.0 Lab Interpretation (test code = Normal 20535-8) [facility] CenterCREATINE [id number] 11:44:15 Test Item Value Reference Range Interpretation Comments CK (test code = 2584083465) 50 U/L 33-194 Lab Interpretation (test code = Normal 20795-5) [facility]CRE[facility] [id number] 11:44:15 Test Item Value Reference Range Interpretation Comments CK (test code = 0091580107) 50 U/L 33-194 Lab Interpretation (test code = Normal 17780-8) [facility] CenterCB WITH [id number] 11:28:14 Test Item Value Reference Range Interpretation Comments WBC (test code = See_Comment [Automated 6690-2) message] The sy stem which generated this result transmitted reference range : 4.20 - 10.70 10*3/?L. The reference range was not used to interpret this result as normal/abnormal . RBC (test code = See_Comment [Automated 989-8) message] The sy stem which [...] RDW-SD (test code = 48.4 fL 38.5-51.6 33484-4) RDW-CV (test code = 15.1 % 12.1-15.4 788-0) PLT (test code = See_Comment [Automated 777-3) message] The sy stem which generated this result transmitted reference range : 150 - 328 10*3/ ?L. The reference r boubacar was not used to interpret this result as normal/abnormal . MPV (test code = 10.2 fL 9.8-13.0 54419-3) NRBC/100 WBC (test See_Comment [Automat ed code = 3288658970) message] The system which generated this result transmitted reference range : 0.0 - 10.0 /100 WBCs. The refer ence range was not u sed to interpret th is result as normal/abnormal . NRBC x10^3 (test code <0.01 See_Comment [Auto mated = 7764575216) message] The s ystem which generated this result transmitted reference range : 10*3/?L. The reference range was not used to interpret this result as normal/abnormal . GRAN MAT (NEUT) % 67.8 % (test code = 770-8) IMM GRAN % (test code 0.80 % = 8218997389) LYMPH % (test code = 19.8 % 736-9) MONO % (test code = 8.7 % 5905-5) EOS % (test code = 2.7 % 713-8) BASO % (test code = 0.2 % 706-2) GRAN MAT x10^3(ANC) 6.56 10*3/uL 1.99-6.95 (test code = 5367096726) IMM GRAN x10^3 (test 0.08 10*3/uL 0.00-0.06 H code = 5506895929) LYMPH x10^3 (test code 1.91 10*3/uL 1.09-3.23 = 731-0) MONO x10^3 (test code 0.84 10*3/uL 0.36-1.02 = 742-7) EOS x10^3 (test code = 0.26 10*3/uL 0.06-0.53 711-2) BASO x10^3 (test code <0.03 0.01-0.09 = 704-7) Lab Interpretation Abnormal (test code = 51224-9) [facility] [id number] 10:56:10 Test Item Value Reference Range Interpretation Comments IRON (test code = 8121273009) 46 ug/dL 50-160 L TIBC (test code = 7693123969) 299 ug/dL 250-410 % FE SAT (test code = 4029341513) 15 % 20-50 L Lab Interpretation (test code = Abnormal 15828-3) [facility] [id number] 10:56:10 Test Item Value Reference Range Interpretation Comments IRON (test code = 3402365764) 46 ug/dL 50-160 L TIBC (test code = 6564160611) 299 ug/dL 250-410 % FE SAT (test code = 8666773240) 15 % 20-50 L Lab Interpretation (test code = Abnormal 51596-6) [facility] CenterFERRITIN EYVSU2814-52-04 10:13:03 Test Item Value Reference Range Interpretation Comments FERRITIN (test code = 89.2 ng/mL 18-464 0401116567) ARPITA (test code = ARPITA) Biotin has been reported to cause a negative bias, interpret results relative to patient's use of biotin. Lab Interpretation (test Normal code = 95268-0) [facility] CenterFERRIRUN[facility] [id number] 10:13:03 Test Item Value Reference Range Interpretation Comments FERRITIN (test code = 89.2 ng/mL 18.0-464.0 3201022269) ARPITA (test code = ARPITA) Biotin has been reported to cause a negative bias, interpret results relative to patient's use of biotin. Lab Interpretation (test Normal code = 53902-0) [facility] CenterTHYROID STIMULATING [id number] 10:09:06 Test Item Value Reference Range Interpretation Comments TSH (test code = See_Comment [Automated message] 3099309196) The system [employer] generated this result transmitted ref erence range: 0.45 - 4 .70 mIU/L. The refe rence range was not u sed to interpret this result as normal/abnor mal. Lab Interpretation (test Normal code = 03807-4) [facility] CenterTHY[facility]ID STIM[facility]ATING [id number] 10:09:06 Test Item Value Reference Range Interpretation Comments TSH (test code = See_Comment [Automated message] 9024698475) The system [employer] generated this result transmitted ref erence range: 0.45 - 4 .70 mIU/L. The refe rence range was not u sed to interpret this result as normal/abnor mal. Lab Interpretation (test Normal code = 46605-3) [facility]N-[facility]AL [id number]-[id number] 09:47:44 Test Item Value Reference Range Interpretation Comments NT-proBNP (test code 12 pg/mL See_Comment [Autom ated = 6729933973) message] The system which generated this result transmitted reference range : <=125. The reference range was not used to interpret this result as normal/abnormal . ARPITA (test code = ARPITA) Biotin has been reported to cause a negative bias, interpret results relative to patient's use of biotin. Lab Interpretation Normal (test code = 35819-2) [facility] CenterLIPID PANEL (76607)(TOTAL CHOLESTEROL, TRIGLYCERIDES, HDL)2021-11-22 09:35:58 Test Item Value Reference Range Interpretation Comments CHOL (test code = 250 mg/dL 120-200 H 7283276318) HDL (test code = 34 mg/dL See_Comment L [Automated message] 1136420197) The system [employer] generated this result transmit lester reference range : >=40. The refer ence range was not u sed to interpret th is result as normal/abnormal . HDLC RATIO (test code = See_Comment H [Au tomated message] 7386864665) The system [employer] generated this result transmit lester reference range : <=5.0. The refe rence range was not u sed to interpret th is result as normal/abnormal . TRIG (test code = 394 mg/dL 30-170 H 3500042498) LDL CHOL (test code = 137 mg/dL See_Comment [Auto mated message] 43609-4) The system [employer] generated this result transmit lester reference range : <=160. The refe rence range was not u sed to interpret th is result as normal/abnormal . VLDL (test code = 79 mg/dL 5-60 H 6269663040) Lab Interpretation (test Abnormal code = 21312-7) [facility] CenterLIP[facility] PANEL (31662)(TOTAL CHOLESTEROL, TRIGLYCERIDES, HDL)2021-11-22 09:35:58 Test Item Value Reference Range Interpretation Comments CHOL (test code = 250 mg/dL 120-200 H 1363178291) HDL (test code = 34 mg/dL >40 L 5826708948) HDLC RATIO (test code = See_Comment H [Au tomated message] 4735065231) The system [employer] generated this result transmit lester reference range : <=5.0. The refe rence range was not u sed to interpret th is result as normal/abnormal . TRIG (test code = 394 mg/dL 30-170 H 6138418215) LDL CHOL (test code = 137 mg/dL See_Comment [Auto mated message] 31564-3) The system [employer] generated this result transmit lester reference range : <=160. The refe rence range was not u sed to interpret th is result as normal/abnormal . VLDL (test code = 79 mg/dL 5-60 H 5365300796) Lab Interpretation (test Abnormal code = 43374-4) [facility] CenterMAGNESIUM2022-[facility]-11 09:35:42 Test Item Value Reference Range Interpretation Comments MAGNESIUM (test code = 2990233848) 1.5 mg/dL 1.7-2.4 L Lab Interpretation (test code = Abnormal 66795-9) [facility]PHOSPHORUS2022-[facility]-11 09:35:42 Test Item Value Reference Range Interpretation Comments PHOSPHORUS (test code = 2694359552) 3.3 mg/dL 2.5-5.0 Lab Interpretation (test code = Normal 66646-5) [facility] CenterCOMP[facility] METABOLIC PANEL (78664)2021-11-22 01:29:09 Test Item Value Reference Range Interpretation Comments NA (test code = 142 mmol/L 135-145 7133726480) K (test code = 3.7 mmol/L 3.5-5.0 0572267529) CL (test code = 103 mmol/L 98-108 6776266545) CO2 TOTAL (test code = 27 mmol/L 23-31 9220734792) AGAP (test code = 2-16 0067334534) BUN (test code = 11 mg/dL 7-23 3428155506) GLUCOSE (test code = 166 mg/dL 70-110 H 0643944801) CREATININE (test code = 0.61 mg/dL 0.60-1.25 6541843902) TOTAL BILI (test code = 0.8 mg/dL 0.1-1.8 0813990382) CALCIUM (test code = 9.3 mg/dL 8.6-10.6 2855625839) T PROTEIN (test code = 7.4 g/dL 6.3-8.2 5314476361) ALBUMIN (test code = 4.0 g/dL 3.5-5.0 1140634434) ALK PHOS (test code = 164 U/L 34-122 H 1683996098) ALTv (test code = 149 U/L 5-50 H 1742-6) AST(SGOT) (test code = 29 U/L 13-40 6963978009) eGFR (test code = mL/min/1.73m2 1805014259) ARPITA (test code = ARPITA) Association of [...] tests). Lab Interpretation Abnormal (test code = 58607-4) [facility] CenterACTIVATED PARTIAL THRMPLAS [id number] 01:23:46 Test Item Value Reference Range Interpretation Comments APTT Patient (test See_Comment [Automat ed code = 3173-2) message] The system which generated this result transmitted reference range : 23 - 38 Seconds . The reference range was not used to interpr et this result as normal/abnormal . ARPITA (test code = ARPITA) [facility] mean normal value for aPTT is 30 seconds. Lab Interpretation Normal (test code = 07944-3) [facility] CenterPROTHROMBIN TIME / [id number] 01:21:51 Test Item Value Reference Range Interpretation [...] tions. Lab Interpretation (test Normal code = 70175-1) [facility] CenterCBC WITH [id number] 01:15:28 Test Item Value Reference Range Interpretation Comments WBC (test code = See_Comment H [Automated 6990-2) message] The sy stem which generated this result transmitted reference range : 4.20 - 10.70 10*3/?L. The reference range was not used to interpret this result as normal/abnormal . RBC (test code = See_Comment H [Automated 489-8) message] The sy stem which [...] RDW-SD (test code = 48.4 fL 38.5-51.6 61080-5) RDW-CV (test code = 15.1 % 12.1-15.4 788-0) PLT (test code = See_Comment [Automated 777-3) message] The sy stem which generated this result transmitted reference range : 150 - 328 10*3/ ?L. The reference r boubacar was not used to interpret this result as normal/abnormal . MPV (test code = 10.1 fL 9.8-13.0 63463-7) NRBC/100 WBC (test See_Comment [Automat ed code = 2073106728) message] The system which generated this result transmitted reference range : 0.0 - 10.0 /100 WBCs. The refer ence range was not u sed to interpret th is result as normal/abnormal . NRBC x10^3 (test code <0.01 See_Comment [Auto mated = 1131548189) message] The s ystem which generated this result transmitted reference range : 10*3/?L. The reference range was not used to interpret this result as normal/abnormal . GRAN MAT (NEUT) % 72.7 % (test code = 770-8) IMM GRAN % (test code 0.60 % = 8336658024) LYMPH % (test code = 15.5 % 736-9) MONO % (test code = 8.2 % 5905-5) EOS % (test code = 2.6 % 713-8) BASO % (test code = 0.4 % 706-2) GRAN MAT x10^3(ANC) 7.83 10*3/uL 1.99-6.95 H (test code = 9847754938) IMM GRAN x10^3 (test 0.07 10*3/uL 0.00-0.06 H code = 3270951493) LYMPH x10^3 (test code 1.67 10*3/uL 1.09-3.23 = 731-0) MONO x10^3 (test code 0.88 10*3/uL 0.36-1.02 = 742-7) EOS x10^3 (test code = 0.28 10*3/uL 0.06-0.53 711-2) BASO x10^3 (test code 0.04 10*3/uL 0.01-0.09 = 704-7) Lab Interpretation Abnormal (test code = 12013-8) [facility] CenterLactic Acid Whole Csezl1166-66-53 01:14:32 Test Item Value Reference Range Interpretation Comments LACTIC ACID (test code = 1.86 mmol/L 0.50-2.20 9074390824) Lab Interpretation (test code = Normal 33795-1) [facility] [id number] 12:58:00 Test Item Value Reference Range Interpretation Comments Glucose Lvl (test code = Glucose Lvl) 228 70-99 [facility]2022-04-12 12:58:00 Test Item Value Reference Range Interpretation Comments BUN (test code = BUN) 23 7-22 [facility]2022-04-12 12:58:00 Test Item Value Reference Range Interpretation Comments Creatinine Lvl (test code = Creatinine 0.78 0.50-1.40 Lvl) [facility]2022-04-12 12:58:00 Test Item Value Reference Range Interpretation Comments Sodium Lvl (test code = Sodium Lvl) 138 135-145 [facility]2022-04-12 12:58:00 Test Item Value Reference Range Interpretation Comments Potassium Lvl (test code = Potassium 4.6 3.5-5.1 Lvl) [facility]2022-04-12 12:58:00 Test Item Value Reference Range Interpretation Comments Chloride Lvl (test code = Chloride Lvl) 108 95-109 [facility]2022-04-12 12:58:00 Test Item Value Reference Range Interpretation Comments CO2 (test code = CO2) 23 24-32 [facility]2022-04-12 12:58:00 Test Item Value Reference Range Interpretation Comments Calcium Lvl (test code = Calcium Lvl) 9.0 8.5-10.5 [facility]2022-04-12 12:58:00 Test Item Value Reference Range Interpretation Comments AGAP (test code = AGAP) 11.6 10.0-20.0 [facility]2022-04-12 12:58:00 Test Item Value Reference Range Interpretation Comments eGFR (test code = eGFR) 116 [facility]KfsffkvCEUSQREBXP5664-15-29 12:58:00 Test Item Value Reference Range Interpretation Comments WBC (test code = WBC) 10.5 3.7-10.4 [facility] CenterYjvqvjkNCEVQDXEOU5750-57-43 12:58:00 Test Item Value Reference Range Interpretation Comments RBC (test code = RBC) 5.48 4.70-6.10 [facility] CenterPjxxouuMWBIXIPKQI3713-44-22 12:58:00 Test Item Value Reference Range Interpretation Comments Hgb (test code = Hgb) 16.0 14.0-18.0 [facility] CenterGeycljiFMXQEAUAXH5944-52-37 12:58:00 Test Item Value Reference Range Interpretation Comments Hct (test code = Hct) 49.8 42.0-54.0 [facility] CenterIovzyfxGXQIJDAJIW8555-03-89 12:58:00 Test Item Value Reference Range Interpretation Comments MCV (test code = MCV) 90.8 80.0-94.0 [facility] CenterHhqwkaiOAYMXMJQPA1453-16-64 12:58:00 Test Item Value Reference Range Interpretation Comments MCH (test code = MCH) 29.1 pg 27.0-31.0 [facility] CenterIedosccVRHYQVAJJA1981-70-53 12:58:00 Test Item Value Reference Range Interpretation Comments MCHC (test code = MCHC) 32.1 32.0-36.0 [facility] CenterYzsqtmlWUMMXDKZPZ4785-45-89 12:58:00 Test Item Value Reference Range Interpretation Comments RDW (test code = RDW) 15.5 11.5-14.5 [facility] CenterFosqsafFITXAXTGLA9015-94-59 12:58:00 Test Item Value Reference Range Interpretation Comments Platelet (test code = Platelet) 312 133-450 [facility] CenterHldpbfbMZHZUCAAIY1388-43-50 12:58:00 Test Item Value Reference Range Interpretation Comments MPV (test code = MPV) 8.3 7.4-10.4 [facility] CenterMfrjubrIZMKPDUCKS2441-75-40 12:58:00 Test Item Value Reference Range Interpretation Comments PT (test code = PT) 12.9 s 12.0-14.7 [facility] CenterNpvsrusTMCCTUIXUR0223-31-95 12:58:00 Test Item Value Reference Range Interpretation Comments INR (test code = INR) 0.98 1 0.85-1.17 [place] [address]-04-12 12:58:00 Test Item Value Reference Range Interpretation Comments PTT (test code = PTT) 27.3 s 22.9-35.8 [place] 752322-04-12 12:58:00 Test Item Value Reference Range Interpretation Comments Segs (test code = Segs) 71.2 45.0-75.0 [place] [address]-04-12 12:58:00 Test Item Value Reference Range Interpretation Comments Lymphocytes (test code = Lymphocytes) 21.1 20.0-40.0 [place] [address]-04-12 12:58:00 Test Item Value Reference Range Interpretation Comments Monocytes (test code = Monocytes) 6.8 2.0-12.0 [place] [address]-04-12 12:58:00 Test Item Value Reference Range Interpretation Comments Eosinophils (test code = 0.1 See_Comment [A utomated message] The Eosinophils) system which ge nerated this result tra nsmitted reference range : <=4.0. The reference r boubacar was not used to int erpret this result as normal/abnormal . [facility] CenterNnvznuaLZUMWPQCVE6466-69-49 12:58:00 Test Item Value Reference Range Interpretation Comments Basophils (test code = 0.8 See_Comment [Aut omated message] The Basophils) system which ge nerated this result tra nsmitted reference range : <=1.0. The reference r boubacar was not used to int erpret this result as normal/abnormal . [facility] CenterKuhlfogFIJWVKGIKY5723-25-66 12:58:00 Test Item Value Reference Range Interpretation Comments Neutrophils # (test code = Neutrophils 7.5 1.5-8.1 #) [place] 752322-04-12 12:58:00 Test Item Value Reference Range Interpretation Comments Lymphocytes # (test code = Lymphocytes 2.2 1.0-5.5 #) [place] [address]-04-12 12:58:00 Test Item Value Reference Range Interpretation Comments Monocytes # (test code 0.7 See_Comment [Aut omated message] The = Monocytes #) system which generated this result tra nsmitted reference range : <=0.8. The reference r boubacar was not used to int erpret this result as normal/abnormal . [place] [address]-04-12 12:58:00 Test Item Value Reference Range Interpretation Comments Basophils # (test code 0.1 See_Comment [Aut omated message] The = Basophils #) system which generated this result tra nsmitted reference range : <=0.2. The reference r boubacar was not used to int erpret this result as normal/abnormal . [facility]2022-04-12 12:58:00 Test Item Value Reference Range Interpretation Comments Glucose Lvl (test code = Glucose Lvl) 228 70-99 [facility]2022-04-12 12:58:00 Test Item Value Reference Range Interpretation Comments BUN (test code = BUN) 23 7-22 [facility]2022-04-12 12:58:00 Test Item Value Reference Range Interpretation Comments Creatinine Lvl (test code = Creatinine 0.78 0.50-1.40 Lvl) [facility]2022-04-12 12:58:00 Test Item Value Reference Range Interpretation Comments Sodium Lvl (test code = Sodium Lvl) 138 135-145 [facility]2022-04-12 12:58:00 Test Item Value Reference Range Interpretation Comments Potassium Lvl (test code = Potassium 4.6 3.5-5.1 Lvl) [facility]2022-04-12 12:58:00 Test Item Value Reference Range Interpretation Comments Chloride Lvl (test code = Chloride Lvl) 108 95-109 [facility]2022-04-12 12:58:00 Test Item Value Reference Range Interpretation Comments CO2 (test code = CO2) 23 24-32 [facility]2022-04-12 12:58:00 Test Item Value Reference Range Interpretation Comments Calcium Lvl (test code = Calcium Lvl) 9.0 8.5-10.5 [facility]2022-04-12 12:58:00 Test Item Value Reference Range Interpretation Comments AGAP (test code = AGAP) 11.6 10.0-20.0 [facility]2022-04-12 12:58:00 Test Item Value Reference Range Interpretation Comments eGFR (test code = eGFR) 116 [facility] CenterRgaudcjVXSDVOGGKN4725-00-96 12:58:00 Test Item Value Reference Range Interpretation Comments WBC (test code = WBC) 10.5 3.7-10.4 [place] [address]-04-12 12:58:00 Test Item Value Reference Range Interpretation Comments RBC (test code = RBC) 5.48 4.70-6.10 [place] 752322-04-12 12:58:00 Test Item Value Reference Range Interpretation Comments Hgb (test code = Hgb) 16.0 14.0-18.0 [place] [address]-04-12 12:58:00 Test Item Value Reference Range Interpretation Comments Hct (test code = Hct) 49.8 42.0-54.0 [place] 752322-04-12 12:58:00 Test Item Value Reference Range Interpretation Comments MCV (test code = MCV) 90.8 80.0-94.0 [place] [address]-04-12 12:58:00 Test Item Value Reference Range Interpretation Comments MCH (test code = MCH) 29.1 pg 27.0-31.0 [place] 752322-04-12 12:58:00 Test Item Value Reference Range Interpretation Comments MCHC (test code = MCHC) 32.1 32.0-36.0 [place] [address]-04-12 12:58:00 Test Item Value Reference Range Interpretation Comments RDW (test code = RDW) 15.5 11.5-14.5 [place] [address]-04-12 12:58:00 Test Item Value Reference Range Interpretation Comments Platelet (test code = Platelet) 312 133-450 [facility] CenterZaqwmtjHAVTUKDJNI7851-63-78 12:58:00 Test Item Value Reference Range Interpretation Comments MPV (test code = MPV) 8.3 7.4-10.4 [place] 752322-04-12 12:58:00 Test Item Value Reference Range Interpretation Comments PT (test code = PT) 12.9 s 12.0-14.7 [place] [address]-04-12 12:58:00 Test Item Value Reference Range Interpretation Comments INR (test code = INR) 0.98 1 0.85-1.17 [place] [address]-04-12 12:58:00 Test Item Value Reference Range Interpretation Comments PTT (test code = PTT) 27.3 s 22.9-35.8 [place] 752322-04-12 12:58:00 Test Item Value Reference Range Interpretation Comments Segs (test code = Segs) 71.2 45.0-75.0 [place] [address]-04-12 12:58:00 Test Item Value Reference Range Interpretation Comments Lymphocytes (test code = Lymphocytes) 21.1 20.0-40.0 [address]04-12 12:58:00 Test Item Value Reference Range Interpretation Comments Monocytes (test code = Monocytes) 6.8 2.0-12.0 [place] [address]-04-12 12:58:00 Test Item Value Reference Range Interpretation Comments Eosinophils (test code = 0.1 See_Comment [A utomated message] The Eosinophils) system which ge nerated this result tra nsmitted reference range : <=4.0. The reference r boubacar was not used to int erpret this result as normal/abnormal . [address]04-12 12:58:00 Test Item Value Reference Range Interpretation Comments Basophils (test code = 0.8 See_Comment [Aut omated message] The Basophils) system which ge nerated this result tra nsmitted reference range : <=1.0. The reference r boubacar was not used to int erpret this result as normal/abnormal . [place] [address]-04-12 12:58:00 Test Item Value Reference Range Interpretation Comments Neutrophils # (test code = Neutrophils 7.5 1.5-8.1 #) [place] [address]-04-12 12:58:00 Test Item Value Reference Range Interpretation Comments Lymphocytes # (test code = Lymphocytes 2.2 1.0-5.5 #) [place] [address]-04-12 12:58:00 Test Item Value Reference Range Interpretation Comments Monocytes # (test code 0.7 See_Comment [Aut omated message] The = Monocytes #) system which generated this result tra nsmitted reference range : <=0.8. The reference r boubacar was not used to int erpret this result as normal/abnormal . [place] [address]-04-12 12:58:00 Test Item Value Reference Range Interpretation Comments Basophils # (test code 0.1 See_Comment [Aut omated message] The = Basophils #) system which generated this result tra nsmitted reference range : <=0.2. The reference r boubacar was not used to int erpret this result as normal/abnormal . [facility]2022-04-12 12:58:00 Test Item Value Reference Range Interpretation Comments Glucose Lvl (test code = Glucose Lvl) 228 70-99 [place] 938802-04-12 12:58:00 Test Item Value Reference Range Interpretation Comments BUN (test code = BUN) 23 7-22 [place] 938802-04-12 12:58:00 Test Item Value Reference Range Interpretation Comments Creatinine Lvl (test code = Creatinine 0.78 0.50-1.40 Lvl) [place] 938802-04-12 12:58:00 Test Item Value Reference Range Interpretation Comments Sodium Lvl (test code = Sodium Lvl) 138 135-145 [place] 938802-04-12 12:58:00 Test Item Value Reference Range Interpretation Comments Potassium Lvl (test code = Potassium 4.6 3.5-5.1 Lvl) [facility]2022-04-12 12:58:00 Test Item Value Reference Range Interpretation Comments Chloride Lvl (test code = Chloride Lvl) 108 95-109 [place] 938802-04-12 12:58:00 Test Item Value Reference Range Interpretation Comments CO2 (test code = CO2) 23 24-32 [place] 938802-04-12 12:58:00 Test Item Value Reference Range Interpretation Comments Calcium Lvl (test code = Calcium Lvl) 9.0 8.5-10.5 [place] 938802-04-12 12:58:00 Test Item Value Reference Range Interpretation Comments AGAP (test code = AGAP) 11.6 10.0-20.0 [place] 938802-04-12 12:58:00 Test Item Value Reference Range Interpretation Comments eGFR (test code = eGFR) 116 [place] 752322-04-12 12:58:00 Test Item Value Reference Range Interpretation Comments WBC (test code = WBC) 10.5 3.7-10.4 [place] 752322-04-12 12:58:00 Test Item Value Reference Range Interpretation Comments RBC (test code = RBC) 5.48 4.70-6.10 [place] 752322-04-12 12:58:00 Test Item Value Reference Range Interpretation Comments Hgb (test code = Hgb) 16.0 14.0-18.0 [place] 752322-04-12 12:58:00 Test Item Value Reference Range Interpretation Comments Hct (test code = Hct) 49.8 42.0-54.0 [place] 752322-04-12 12:58:00 Test Item Value Reference Range Interpretation Comments MCV (test code = MCV) 90.8 80.0-94.0 [place] 752322-04-12 12:58:00 Test Item Value Reference Range Interpretation Comments MCH (test code = MCH) 29.1 pg 27.0-31.0 [place] 752322-04-12 12:58:00 Test Item Value Reference Range Interpretation Comments MCHC (test code = MCHC) 32.1 32.0-36.0 [place] 752322-04-12 12:58:00 Test Item Value Reference Range Interpretation Comments RDW (test code = RDW) 15.5 11.5-14.5 [place] 752322-04-12 12:58:00 Test Item Value Reference Range Interpretation Comments Platelet (test code = Platelet) 312 133-450 [facility] CenterGdagezoLTKLQRXJZG6463-86-49 12:58:00 Test Item Value Reference Range Interpretation Comments MPV (test code = MPV) 8.3 7.4-10.4 [place] [address]-04-12 12:58:00 Test Item Value Reference Range Interpretation Comments PT (test code = PT) 12.9 s 12.0-14.7 [place] [address]-04-12 12:58:00 Test Item Value Reference Range Interpretation Comments INR (test code = INR) 0.98 1 0.85-1.17 [place] [address]-04-12 12:58:00 Test Item Value Reference Range Interpretation Comments PTT (test code = PTT) 27.3 s 22.9-35.8 [place] [address]-04-12 12:58:00 Test Item Value Reference Range Interpretation Comments Segs (test code = Segs) 71.2 45.0-75.0 [place] [address]-04-12 12:58:00 Test Item Value Reference Range Interpretation Comments Lymphocytes (test code = Lymphocytes) 21.1 20.0-40.0 [place] 752322-04-12 12:58:00 Test Item Value Reference Range Interpretation Comments Monocytes (test code = Monocytes) 6.8 2.0-12.0 [place] 752322-04-12 12:58:00 Test Item Value Reference Range Interpretation Comments Eosinophils (test code = 0.1 See_Comment [A utomated message] The Eosinophils) system which ge nerated this result tra nsmitted reference range : <=4.0. The reference r boubacar was not used to int erpret this result as normal/abnormal . [place] 752322-04-12 12:58:00 Test Item Value Reference Range Interpretation Comments Basophils (test code = 0.8 See_Comment [Aut omated message] The Basophils) system which ge nerated this result tra nsmitted reference range : <=1.0. The reference r boubacar was not used to int erpret this result as normal/abnormal . [place] 752322-04-12 12:58:00 Test Item Value Reference Range Interpretation Comments Neutrophils # (test code = Neutrophils 7.5 1.5-8.1 #) [place] 752322-04-12 12:58:00 Test Item Value Reference Range Interpretation Comments Lymphocytes # (test code = Lymphocytes 2.2 1.0-5.5 #) [place] 752322-04-12 12:58:00 Test Item Value Reference Range Interpretation Comments Monocytes # (test code 0.7 See_Comment [Aut omated message] The = Monocytes #) system which generated this result tra nsmitted reference range : <=0.8. The reference r boubacar was not used to int erpret this result as normal/abnormal . [place] [address]-04-12 12:58:00 Test Item Value Reference Range Interpretation Comments Basophils # (test code 0.1 See_Comment [Aut omated message] The = Basophils #) system which generated this result tra nsmitted reference range : <=0.2. The reference r boubacar was not used to int erpret this result as normal/abnormal . [facility] [id number] 12:58:00 Test Item Value Reference Range Interpretation Comments Glucose Lvl (test code = Glucose Lvl) 228 70-99 [place] 938802-04-12 12:58:00 Test Item Value Reference Range Interpretation Comments BUN (test code = BUN) 23 7-22 [place] 938802-04-12 12:58:00 Test Item Value Reference Range Interpretation Comments Creatinine Lvl (test code = Creatinine 0.78 0.50-1.40 Lvl) [place] 938802-04-12 12:58:00 Test Item Value Reference Range Interpretation Comments Sodium Lvl (test code = Sodium Lvl) 138 135-145 [place] 938802-04-12 12:58:00 Test Item Value Reference Range Interpretation Comments Potassium Lvl (test code = Potassium 4.6 3.5-5.1 Lvl) [place] 938802-04-12 12:58:00 Test Item Value Reference Range Interpretation Comments Chloride Lvl (test code = Chloride Lvl) 108 95-109 [place] 938802-04-12 12:58:00 Test Item Value Reference Range Interpretation Comments CO2 (test code = CO2) 23 24-32 [place] 938802-04-12 12:58:00 Test Item Value Reference Range Interpretation Comments Calcium Lvl (test code = Calcium Lvl) 9.0 8.5-10.5 [place] 938802-04-12 12:58:00 Test Item Value Reference Range Interpretation Comments AGAP (test code = AGAP) 11.6 10.0-20.0 [place] 938802-04-12 12:58:00 Test Item Value Reference Range Interpretation Comments eGFR (test code = eGFR) 116 [place] 752322-04-12 12:58:00 Test Item Value Reference Range Interpretation Comments WBC (test code = WBC) 10.5 3.7-10.4 [place] [address]-04-12 12:58:00 Test Item Value Reference Range Interpretation Comments RBC (test code = RBC) 5.48 4.70-6.10 [place] [address]-04-12 12:58:00 Test Item Value Reference Range Interpretation Comments Hgb (test code = Hgb) 16.0 14.0-18.0 [place] [address]-04-12 12:58:00 Test Item Value Reference Range Interpretation Comments Hct (test code = Hct) 49.8 42.0-54.0 [place] 752322-04-12 12:58:00 Test Item Value Reference Range Interpretation Comments MCV (test code = MCV) 90.8 80.0-94.0 [place] 752322-04-12 12:58:00 Test Item Value Reference Range Interpretation Comments MCH (test code = MCH) 29.1 pg 27.0-31.0 [place] 752322-04-12 12:58:00 Test Item Value Reference Range Interpretation Comments MCHC (test code = MCHC) 32.1 32.0-36.0 [place] 752322-04-12 12:58:00 Test Item Value Reference Range Interpretation Comments RDW (test code = RDW) 15.5 11.5-14.5 [place] 752322-04-12 12:58:00 Test Item Value Reference Range Interpretation Comments Platelet (test code = Platelet) 312 133-450 [facility] CenterSzqntzxGIHCYLGJOI7095-71-48 12:58:00 Test Item Value Reference Range Interpretation Comments MPV (test code = MPV) 8.3 7.4-10.4 [place] 752322-04-12 12:58:00 Test Item Value Reference Range Interpretation Comments PT (test code = PT) 12.9 s 12.0-14.7 [place] [address]-04-12 12:58:00 Test Item Value Reference Range Interpretation Comments INR (test code = INR) 0.98 1 0.85-1.17 [place] 752322-04-12 12:58:00 Test Item Value Reference Range Interpretation Comments PTT (test code = PTT) 27.3 s 22.9-35.8 [place] [address]-04-12 12:58:00 Test Item Value Reference Range Interpretation Comments Segs (test code = Segs) 71.2 45.0-75.0 [place] [address]-04-12 12:58:00 Test Item Value Reference Range Interpretation Comments Lymphocytes (test code = Lymphocytes) 21.1 20.0-40.0 [place] 752322-04-12 12:58:00 Test Item Value Reference Range Interpretation Comments Monocytes (test code = Monocytes) 6.8 2.0-12.0 [place] 752322-04-12 12:58:00 Test Item Value Reference Range Interpretation Comments Eosinophils (test code = 0.1 See_Comment [A utomated message] The Eosinophils) system which ge nerated this result tra nsmitted reference range : <=4.0. The reference r boubacar was not used to int erpret this result as normal/abnormal . [facility] CenterLzlextnLEEIRVEZNA4881-95-03 12:58:00 Test Item Value Reference Range Interpretation Comments Basophils (test code = 0.8 See_Comment [Aut omated message] The Basophils) system which ge nerated this result tra nsmitted reference range : <=1.0. The reference r boubacar was not used to int erpret this result as normal/abnormal . [place] 752322-04-12 12:58:00 Test Item Value Reference Range Interpretation Comments Neutrophils # (test code = Neutrophils 7.5 1.5-8.1 #) [facility] CenterLeszlaaSGYJIVYIGQ6473-43-48 12:58:00 Test Item Value Reference Range Interpretation Comments Lymphocytes # (test code = Lymphocytes 2.2 1.0-5.5 #) [place] 752322-04-12 12:58:00 Test Item Value Reference Range Interpretation Comments Monocytes # (test code 0.7 See_Comment [Aut omated message] The = Monocytes #) system which generated this result tra nsmitted reference range : <=0.8. The reference r boubacar was not used to int erpret this result as normal/abnormal . [facility] CenterPviopdoRLQUQCLXYY4047-57-83 12:58:00 Test Item Value Reference Range Interpretation Comments Basophils # (test code 0.1 See_Comment [Aut omated message] The = Basophils #) system which generated this result tra nsmitted reference range : <=0.2. The reference r boubacar was not used to int erpret this result as normal/abnormal . [facility] CenterHEALBEZITYPJ4720-03-96 11:59:00 Test Item Value Reference Range Interpretation Comments Tube Num CSF (test code = Tube Num CSF) 3 1 [facility] [id number] 11:59:00 Test Item Value Reference Range Interpretation Comments Color CSF (test code Colorless (10/24/21 6:59 = Color CSF) AM) [place] 091642-04-12 11:59:00 Test Item Value Reference Range Interpretation Comments Clarity CSF (test code = Clear (10/24/21 6:59 Clarity CSF) AM) [facility]2022-04-12 11:59:00 Test Item Value Reference Range Interpretation Comments Supernat CSF (test Colorless (10/24/21 6:59 code = Supernat CSF) AM) [facility]2022-04-12 11:59:00 Test Item Value Reference Range Interpretation Comments Nucleated Cells CSF 3 See_Comment [Automa lester message] The (test code = Nucleated syste m which generated Cells CSF) this result tra nsmitted reference range : <=53. The reference r boubacar was not used to int erpret this result as normal/abnormal . [facility]2022-04-12 11:59:00 Test Item Value Reference Range Interpretation Comments RBC CSF (test code = 64 See_Comment [Autom ated message] The RBC CSF) system which ge nerated this result transmit lester reference range : <=03. The reference range was not used to interpr et this result as dany l/abnormal. [facility]2022-04-12 11:59:00 Test Item Value Reference Range Interpretation Comments Comment CSF (test Differential not performed code = Comment CSF) on WBC count of less than 5. Cell counts performed on CSF greater than two hours after collection may not be mill representative due to cellular degradation. [facility]2022-04-12 11:59:00 Test Item Value Reference Range Interpretation Comments Glucose CSF (test code = Glucose CSF) 129 45-80 [facility]2022-04-12 11:59:00 Test Item Value Reference Range Interpretation Comments Protein CSF (test code = Protein CSF) 110 15-45 [facility] CenterG[facility] St[facility] [id number] 11:59:00 Test Item Value Reference Range Interpretation Comments Gram Stain Report Gram Stain Performed By: (test code = Gram [facility] Stain Report) [facility] w/Gram [id number] 11:59:00 Test Item Value Reference Range Interpretation Comments Culture: CSF w/Gram 48 Hour Report - No Stain (test code = Growth, Holding Culture: CSF w/Gram Stain) [facility]2022-04-12 11:59:00 Test Item Value Reference Range Interpretation Comments Tube Num CSF (test code = Tube Num CSF) 3 1 [facility] [id number] 11:59:00 Test Item Value Reference Range Interpretation Comments Color CSF (test code Colorless (10/24/21 6:59 = Color CSF) AM) [facility]2022-04-12 11:59:00 Test Item Value Reference Range Interpretation Comments Clarity CSF (test code = Clear (10/24/21 6:59 Clarity CSF) AM) [facility]2022-04-12 11:59:00 Test Item Value Reference Range Interpretation Comments Supernat CSF (test Colorless (10/24/21 6:59 code = Supernat CSF) AM) [facility] [id number] 11:59:00 Test Item Value Reference Range Interpretation Comments Nucleated Cells CSF 3 See_Comment [Automa lester message] The (test code = Nucleated syste m which generated Cells CSF) this result tra nsmitted reference range : <=53. The reference r boubacar was not used to int erpret this result as normal/abnormal . [facility]2022-04-12 11:59:00 Test Item Value Reference Range Interpretation Comments RBC CSF (test code = 64 See_Comment [Autom ated message] The RBC CSF) system which ge nerated this result transmit lester reference range : <=03. The reference range was not used to interpr et this result as dany l/abnormal. [facility]2022-04-12 11:59:00 Test Item Value Reference Range Interpretation Comments Comment CSF (test Differential not performed code = Comment CSF) on WBC count of less than 5. Cell counts performed on CSF greater than two hours after collection may not be mill representative due to cellular degradation. [facility] [id number] 11:59:00 Test Item Value Reference Range Interpretation Comments Glucose CSF (test code = Glucose CSF) 129 45-80 [facility] [id number] 11:59:00 Test Item Value Reference Range Interpretation Comments Protein CSF (test code = Protein CSF) 110 15-45 [facility] CenterG[facility] [id number] 11:59:00 Test Item Value Reference Range Interpretation Comments Gram Stain Report Gram Stain Performed By: (test code = Gram [facility] Stain Report) [facility] CSF w/Gram [id number] 11:59:00 Test Item Value Reference Range Interpretation Comments Culture: CSF w/Gram 48 Hour Report - No Stain (test code = Growth, Holding Culture: CSF w/Gram Stain) [facility]2022-04-12 11:59:00 Test Item Value Reference Range Interpretation Comments Tube Num CSF (test code = Tube Num CSF) 3 1 [facility]2022-04-12 11:59:00 Test Item Value Reference Range Interpretation Comments Color CSF (test code Colorless (10/24/21 6:59 = Color CSF) AM) [facility]2022-04-12 11:59:00 Test Item Value Reference Range Interpretation Comments Clarity CSF (test code = Clear (10/24/21 6:59 Clarity CSF) AM) [facility]2022-04-12 11:59:00 Test Item Value Reference Range Interpretation Comments Supernat CSF (test Colorless (10/24/21 6:59 code = Supernat CSF) AM) [facility]2022-04-12 11:59:00 Test Item Value Reference Range Interpretation Comments Nucleated Cells CSF 3 See_Comment [Automa lester message] The (test code = Nucleated syste m which generated Cells CSF) this result tra nsmitted reference range : <=53. The reference r boubacar was not used to int erpret this result as normal/abnormal . [facility]2022-04-12 11:59:00 Test Item Value Reference Range Interpretation Comments RBC CSF (test code = 64 See_Comment [Autom ated message] The RBC CSF) system which ge nerated this result transmit lester reference range : <=03. The reference range was not used to interpr et this result as dany l/abnormal. [facility]2022-04-12 11:59:00 Test Item Value Reference Range Interpretation Comments Comment CSF (test Differential not performed code = Comment CSF) on WBC count of less than 5. Cell counts performed on CSF greater than two hours after collection may not be mill representative due to cellular degradation. [facility] CenterWireImage [id number] 11:59:00 Test Item Value Reference Range Interpretation Comments Glucose CSF (test code = Glucose CSF) 129 45-80 [facility] [id number] 11:59:00 Test Item Value Reference Range Interpretation Comments Protein CSF (test code = Protein CSF) 110 15-45 [facility] CenterGram Stain [id number] 11:59:00 Test Item Value Reference Range Interpretation Comments Gram Stain Report Gram Stain Performed By: (test code = Gram [facility] Stain Report) [facility]: CSF w/Gram [id number] 11:59:00 Test Item Value Reference Range Interpretation Comments Culture: CSF w/Gram 48 Hour Report - No Stain (test code = Growth, Holding Culture: CSF w/Gram Stain) [facility]2022-04-12 11:59:00 Test Item Value Reference Range Interpretation Comments Tube Num CSF (test code = Tube Num CSF) 3 1 [facility]2022-04-12 11:59:00 Test Item Value Reference Range Interpretation Comments Color CSF (test code Colorless (10/24/21 6:59 = Color CSF) AM) [facility]2022-04-12 11:59:00 Test Item Value Reference Range Interpretation Comments Clarity CSF (test code = Clear (10/24/21 6:59 Clarity CSF) AM) [facility]2022-04-12 11:59:00 Test Item Value Reference Range Interpretation Comments Supernat CSF (test Colorless (10/24/21 6:59 code = Supernat CSF) AM) [facility]2022-04-12 11:59:00 Test Item Value Reference Range Interpretation Comments Nucleated Cells CSF 3 See_Comment [Automa lester message] The (test code = Nucleated syste m which generated Cells CSF) this result tra nsmitted reference range : <=53. The reference r boubacar was not used to int erpret this result as normal/abnormal . [facility]2022-04-12 11:59:00 Test Item Value Reference Range Interpretation Comments RBC CSF (test code = 64 See_Comment [Autom ated message] The RBC CSF) system which ge nerated this result transmit lester reference range : <=03. The reference range was not used to interpr et this result as dany l/abnormal. [facility]2022-04-12 11:59:00 Test Item Value Reference Range Interpretation Comments Comment CSF (test Differential not performed code = Comment CSF) on WBC count of less than 5. Cell counts performed on CSF greater than two hours after collection may not be mill representative due to cellular degradation. [facility]2022-04-12 11:59:00 Test Item Value Reference Range Interpretation Comments Glucose CSF (test code = Glucose CSF) 129 45-80 [facility]annBODY [id number] 11:59:00 Test Item Value Reference Range Interpretation Comments Protein CSF (test code = Protein CSF) 110 15-45 [facility] CenterannGram Stain [id number] 11:59:00 Test Item Value Reference Range Interpretation Comments Gram Stain Report Gram Stain Performed By: (test code = Gram [facility] Stain Report) [facility] CSF w/Gram [id number] 11:59:00 Test Item Value Reference Range Interpretation Comments Culture: CSF w/Gram 48 Hour Report - No Stain (test code = Growth, Holding Culture: CSF w/Gram Stain) [facility] [id number] 14:46:00 Test Item Value Reference Range Interpretation Comments Hgb A1C (test code = Hgb A1C) 5.6 [facility] CenterIAL [id number] 14:46:00 Test Item Value Reference Range Interpretation Comments Hgb A1C (test code = Hgb A1C) 5.6 [facility]IAL [id number] 14:46:00 Test Item Value Reference Range Interpretation Comments Hgb A1C (test code = Hgb A1C) 5.6 [facility]annPR[facility] [id number] 14:46:00 Test Item Value Reference Range Interpretation Comments Hgb A1C (test code = Hgb A1C) 5.6 [facility] CenterCHEM [id number] 11:43:00 Test Item Value Reference Range Interpretation Comments Glucose Lvl (test code = Glucose Lvl) 418 70-99 [facility] CenterCHE[facility] [id number] 11:43:00 Test Item Value Reference Range Interpretation Comments BUN (test code = BUN) 22 7-22 [facility] CenterannCHEM [id number] 11:43:00 Test Item Value Reference Range Interpretation Comments Creatinine Lvl (test code = Creatinine 1.10 0.50-1.40 Lvl) [facility] CenterCHE[facility] [id number] 11:43:00 Test Item Value Reference Range Interpretation Comments Sodium Lvl (test code = Sodium Lvl) 138 135-145 [facility] [id number] 11:43:00 Test Item Value Reference Range Interpretation Comments Potassium Lvl (test code = Potassium 4.9 3.5-5.1 Lvl) [facility]2022-04-11 11:43:00 Test Item Value Reference Range Interpretation Comments Chloride Lvl (test code = Chloride Lvl) 113 95-109 [facility]2022-04-11 11:43:00 Test Item Value Reference Range Interpretation Comments CO2 (test code = CO2) 16 24-32 [place] 938802-04-11 11:43:00 Test Item Value Reference Range Interpretation Comments AGAP (test code = AGAP) 13.9 10.0-20.0 [place] 938802-04-11 11:43:00 Test Item Value Reference Range Interpretation Comments Calcium Lvl (test code = Calcium Lvl) 9.0 8.5-10.5 [place] 938802-04-11 11:43:00 Test Item Value Reference Range Interpretation Comments eGFR (test code = eGFR) 86 [facility] C[id number] 11:43:00 Test Item Value Reference Range Interpretation Comments WBC (test code = WBC) 10.2 3.7-10.4 [place] 752322-04-11 11:43:00 Test Item Value Reference Range Interpretation Comments RBC (test code = RBC) 5.46 4.70-6.10 [facility] CenterYwfxsmaLQDLNHGFSF0432-31-37 11:43:00 Test Item Value Reference Range Interpretation Comments Hgb (test code = Hgb) 16.3 14.0-18.0 [place] 752322-04-11 11:43:00 Test Item Value Reference Range Interpretation Comments Hct (test code = Hct) 50.0 42.0-54.0 [place] 752322-04-11 11:43:00 Test Item Value Reference Range Interpretation Comments MCV (test code = MCV) 91.4 80.0-94.0 [place] 752322-04-11 11:43:00 Test Item Value Reference Range Interpretation Comments MCH (test code = MCH) 29.9 pg 27.0-31.0 [place] 752322-04-11 11:43:00 Test Item Value Reference Range Interpretation Comments MCHC (test code = MCHC) 32.7 32.0-36.0 [facility] CenterWgomlckZOECASHSBZ3539-62-45 11:43:00 Test Item Value Reference Range Interpretation Comments RDW (test code = RDW) 15.7 11.5-14.5 [place] 752322-04-11 11:43:00 Test Item Value Reference Range Interpretation Comments Platelet (test code = Platelet) 321 133-450 [place] 752322-04-11 11:43:00 Test Item Value Reference Range Interpretation Comments MPV (test code = MPV) 8.6 7.4-10.4 [facility] CenterFmdyvssDNGYKEUBGX9421-51-78 11:43:00 Test Item Value Reference Range Interpretation Comments Segs (test code = Segs) 92.0 45.0-75.0 [place] 752322-04-11 11:43:00 Test Item Value Reference Range Interpretation Comments Lymphocytes (test code = Lymphocytes) 5.2 20.0-40.0 [place] 752322-04-11 11:43:00 Test Item Value Reference Range Interpretation Comments Monocytes (test code = Monocytes) 1.6 2.0-12.0 [place] 752322-04-11 11:43:00 Test Item Value Reference Range Interpretation Comments Basophils (test code = 1.2 See_Comment [Aut omated message] The Basophils) system which ge nerated this result tra nsmitted reference range : <=1.0. The reference r boubacar was not used to int erpret this result as normal/abnormal . [facility] CenterJbejvweEWAIRVOTOP6309-60-97 11:43:00 Test Item Value Reference Range Interpretation Comments Neutrophils # (test code = Neutrophils 9.4 1.5-8.1 #) [facility] CenterFokfnuhQMVAGJDOIO6078-19-01 11:43:00 Test Item Value Reference Range Interpretation Comments Lymphocytes # (test code = Lymphocytes 0.5 1.0-5.5 #) [place] 752322-04-11 11:43:00 Test Item Value Reference Range Interpretation Comments Monocytes # (test code 0.2 See_Comment [Aut omated message] The = Monocytes #) system which generated this result tra nsmitted reference range : <=0.8. The reference r boubacar was not used to int erpret this result as normal/abnormal . [place] 752322-04-11 11:43:00 Test Item Value Reference Range Interpretation Comments Basophils # (test code 0.1 See_Comment [Aut omated message] The = Basophils #) system which generated this result tra nsmitted reference range : <=0.2. The reference r boubacar was not used to int erpret this result as normal/abnormal . [facility]2022-04-11 11:43:00 Test Item Value Reference Range Interpretation Comments Glucose Lvl (test code = Glucose Lvl) 418 70-99 [facility]2022-04-11 11:43:00 Test Item Value Reference Range Interpretation Comments BUN (test code = BUN) 22 7-22 [place] 938802-04-11 11:43:00 Test Item Value Reference Range Interpretation Comments Creatinine Lvl (test code = Creatinine 1.10 0.50-1.40 Lvl) [facility]2022-04-11 11:43:00 Test Item Value Reference Range Interpretation Comments Sodium Lvl (test code = Sodium Lvl) 138 135-145 [place] 938802-04-11 11:43:00 Test Item Value Reference Range Interpretation Comments Potassium Lvl (test code = Potassium 4.9 3.5-5.1 Lvl) [facility]2022-04-11 11:43:00 Test Item Value Reference Range Interpretation Comments Chloride Lvl (test code = Chloride Lvl) 113 95-109 [facility]2022-04-11 11:43:00 Test Item Value Reference Range Interpretation Comments CO2 (test code = CO2) 16 24-32 [facility]2022-04-11 11:43:00 Test Item Value Reference Range Interpretation Comments AGAP (test code = AGAP) 13.9 10.0-20.0 [facility]2022-04-11 11:43:00 Test Item Value Reference Range Interpretation Comments Calcium Lvl (test code = Calcium Lvl) 9.0 8.5-10.5 [facility]2022-04-11 11:43:00 Test Item Value Reference Range Interpretation Comments eGFR (test code = eGFR) 86 [facility] CenterUtuluifSGBNAAMTMA7476-88-18 11:43:00 Test Item Value Reference Range Interpretation Comments WBC (test code = WBC) 10.2 3.7-10.4 [place] 752322-04-11 11:43:00 Test Item Value Reference Range Interpretation Comments RBC (test code = RBC) 5.46 4.70-6.10 [facility] CenterGeoqegwUZWZKIZDCJ3363-51-46 11:43:00 Test Item Value Reference Range Interpretation Comments Hgb (test code = Hgb) 16.3 14.0-18.0 [facility] CenterZcbgfguVWVJRLYXCI3645-04-58 11:43:00 Test Item Value Reference Range Interpretation Comments Hct (test code = Hct) 50.0 42.0-54.0 [facility] CenterYicunarIMDYUKBFJH6860-00-88 11:43:00 Test Item Value Reference Range Interpretation Comments MCV (test code = MCV) 91.4 80.0-94.0 [facility] CenterDyrljpsKXGUOARTZY3641-51-05 11:43:00 Test Item Value Reference Range Interpretation Comments MCH (test code = MCH) 29.9 pg 27.0-31.0 [facility] CenterRqzsbybOBXDEQPUSJ0158-22-05 11:43:00 Test Item Value Reference Range Interpretation Comments MCHC (test code = MCHC) 32.7 32.0-36.0 [facility] CenterQvtfiavLDDVMVMXLF7407-75-50 11:43:00 Test Item Value Reference Range Interpretation Comments RDW (test code = RDW) 15.7 11.5-14.5 [facility] CenterTpihkzlHLPAKCOFNU4060-96-67 11:43:00 Test Item Value Reference Range Interpretation Comments Platelet (test code = Platelet) 321 133-450 [facility] CenterArlrsvdOVSJQRIUUE5675-63-76 11:43:00 Test Item Value Reference Range Interpretation Comments MPV (test code = MPV) 8.6 7.4-10.4 [facility] CenterVnjudamFWULSEGSDG3861-65-01 11:43:00 Test Item Value Reference Range Interpretation Comments Segs (test code = Segs) 92.0 45.0-75.0 [facility] CenterQrqpnxiOWYTVGQQXE8389-40-37 11:43:00 Test Item Value Reference Range Interpretation Comments Lymphocytes (test code = Lymphocytes) 5.2 20.0-40.0 [place] 752322-04-11 11:43:00 Test Item Value Reference Range Interpretation Comments Monocytes (test code = Monocytes) 1.6 2.0-12.0 [facility] CenterKgxattzZHWHVGETXU0533-88-50 11:43:00 Test Item Value Reference Range Interpretation Comments Basophils (test code = 1.2 See_Comment [Aut omated message] The Basophils) system which ge nerated this result tra nsmitted reference range : <=1.0. The reference r boubacar was not used to int erpret this result as normal/abnormal . [place] 752322-04-11 11:43:00 Test Item Value Reference Range Interpretation Comments Neutrophils # (test code = Neutrophils 9.4 1.5-8.1 #) [place] 752322-04-11 11:43:00 Test Item Value Reference Range Interpretation Comments Lymphocytes # (test code = Lymphocytes 0.5 1.0-5.5 #) [place] 752322-04-11 11:43:00 Test Item Value Reference Range Interpretation Comments Monocytes # (test code 0.2 See_Comment [Aut omated message] The = Monocytes #) system which generated this result tra nsmitted reference range : <=0.8. The reference r boubacar was not used to int erpret this result as normal/abnormal . [place] 752322-04-11 11:43:00 Test Item Value Reference Range Interpretation Comments Basophils # (test code 0.1 See_Comment [Aut omated message] The = Basophils #) system which generated this result tra nsmitted reference range : <=0.2. The reference r boubacar was not used to int erpret this result as normal/abnormal . [facility]2022-04-11 11:43:00 Test Item Value Reference Range Interpretation Comments Glucose Lvl (test code = Glucose Lvl) 418 70-99 [place] 938802-04-11 11:43:00 Test Item Value Reference Range Interpretation Comments BUN (test code = BUN) 22 7-22 [place] 938802-04-11 11:43:00 Test Item Value Reference Range Interpretation Comments Creatinine Lvl (test code = Creatinine 1.10 0.50-1.40 Lvl) [place] 938802-04-11 11:43:00 Test Item Value Reference Range Interpretation Comments Sodium Lvl (test code = Sodium Lvl) 138 135-145 [place] 938802-04-11 11:43:00 Test Item Value Reference Range Interpretation Comments Potassium Lvl (test code = Potassium 4.9 3.5-5.1 Lvl) [place] 938802-04-11 11:43:00 Test Item Value Reference Range Interpretation Comments Chloride Lvl (test code = Chloride Lvl) 113 95-109 [facility]2022-04-11 11:43:00 Test Item Value Reference Range Interpretation Comments CO2 (test code = CO2) 16 24-32 [facility]2022-04-11 11:43:00 Test Item Value Reference Range Interpretation Comments AGAP (test code = AGAP) 13.9 10.0-20.0 [facility]2022-04-11 11:43:00 Test Item Value Reference Range Interpretation Comments Calcium Lvl (test code = Calcium Lvl) 9.0 8.5-10.5 [facility]2022-04-11 11:43:00 Test Item Value Reference Range Interpretation Comments eGFR (test code = eGFR) 86 [facility] CenterCvzmgqwUFMGGGLMVA3609-87-32 11:43:00 Test Item Value Reference Range Interpretation Comments WBC (test code = WBC) 10.2 3.7-10.4 [facility] CenterAubmgvrUTBTUGRHYQ6788-81-25 11:43:00 Test Item Value Reference Range Interpretation Comments RBC (test code = RBC) 5.46 4.70-6.10 [facility] CenterLijxzbmKWJWSKVRSB8926-62-14 11:43:00 Test Item Value Reference Range Interpretation Comments Hgb (test code = Hgb) 16.3 14.0-18.0 [facility] CenterGoqiypjPCKOKUGIRI4147-06-17 11:43:00 Test Item Value Reference Range Interpretation Comments Hct (test code = Hct) 50.0 42.0-54.0 [facility] CenterTunqodkNKBJRPEMLM4234-42-45 11:43:00 Test Item Value Reference Range Interpretation Comments MCV (test code = MCV) 91.4 80.0-94.0 [place] 752322-04-11 11:43:00 Test Item Value Reference Range Interpretation Comments MCH (test code = MCH) 29.9 pg 27.0-31.0 [facility] CenterWewraifSKTNPAHPQG3394-46-66 11:43:00 Test Item Value Reference Range Interpretation Comments MCHC (test code = MCHC) 32.7 32.0-36.0 [facility] CenterYykhshnNRBZPVDCAI1379-95-88 11:43:00 Test Item Value Reference Range Interpretation Comments RDW (test code = RDW) 15.7 11.5-14.5 [place] 752322-04-11 11:43:00 Test Item Value Reference Range Interpretation Comments Platelet (test code = Platelet) 321 133-450 [place] 752322-04-11 11:43:00 Test Item Value Reference Range Interpretation Comments MPV (test code = MPV) 8.6 7.4-10.4 [place] 752322-04-11 11:43:00 Test Item Value Reference Range Interpretation Comments Segs (test code = Segs) 92.0 45.0-75.0 [place] [address]-04-11 11:43:00 Test Item Value Reference Range Interpretation Comments Lymphocytes (test code = Lymphocytes) 5.2 20.0-40.0 [place] [address]-04-11 11:43:00 Test Item Value Reference Range Interpretation Comments Monocytes (test code = Monocytes) 1.6 2.0-12.0 [place] 752322-04-11 11:43:00 Test Item Value Reference Range Interpretation Comments Basophils (test code = 1.2 See_Comment [Aut omated message] The Basophils) system which ge nerated this result tra nsmitted reference range : <=1.0. The reference r boubacar was not used to int erpret this result as normal/abnormal . [place] 752322-04-11 11:43:00 Test Item Value Reference Range Interpretation Comments Neutrophils # (test code = Neutrophils 9.4 1.5-8.1 #) [place] 752322-04-11 11:43:00 Test Item Value Reference Range Interpretation Comments Lymphocytes # (test code = Lymphocytes 0.5 1.0-5.5 #) [place] [address]-04-11 11:43:00 Test Item Value Reference Range Interpretation Comments Monocytes # (test code 0.2 See_Comment [Aut omated message] The = Monocytes #) system which generated this result tra nsmitted reference range : <=0.8. The reference r boubacar was not used to int erpret this result as normal/abnormal . [place] 752322-04-11 11:43:00 Test Item Value Reference Range Interpretation Comments Basophils # (test code 0.1 See_Comment [Aut omated message] The = Basophils #) system which generated this result tra nsmitted reference range : <=0.2. The reference r boubacar was not used to int erpret this result as normal/abnormal . [facility]2022-04-11 11:43:00 Test Item Value Reference Range Interpretation Comments Glucose Lvl (test code = Glucose Lvl) 418 70-99 [place] 938802-04-11 11:43:00 Test Item Value Reference Range Interpretation Comments BUN (test code = BUN) 22 7-22 [facility]2022-04-11 11:43:00 Test Item Value Reference Range Interpretation Comments Creatinine Lvl (test code = Creatinine 1.10 0.50-1.40 Lvl) [facility]2022-04-11 11:43:00 Test Item Value Reference Range Interpretation Comments Sodium Lvl (test code = Sodium Lvl) 138 135-145 [place] 938802-04-11 11:43:00 Test Item Value Reference Range Interpretation Comments Potassium Lvl (test code = Potassium 4.9 3.5-5.1 Lvl) [facility]2022-04-11 11:43:00 Test Item Value Reference Range Interpretation Comments Chloride Lvl (test code = Chloride Lvl) 113 95-109 [facility]2022-04-11 11:43:00 Test Item Value Reference Range Interpretation Comments CO2 (test code = CO2) 16 24-32 [facility]2022-04-11 11:43:00 Test Item Value Reference Range Interpretation Comments AGAP (test code = AGAP) 13.9 10.0-20.0 [facility]2022-04-11 11:43:00 Test Item Value Reference Range Interpretation Comments Calcium Lvl (test code = Calcium Lvl) 9.0 8.5-10.5 [facility]2022-04-11 11:43:00 Test Item Value Reference Range Interpretation Comments eGFR (test code = eGFR) 86 [facility] CenterBimuaxwHRJTAPRJYJ5148-74-99 11:43:00 Test Item Value Reference Range Interpretation Comments WBC (test code = WBC) 10.2 3.7-10.4 [facility] CenterLlklmqpDSMZIZIUNR7515-59-00 11:43:00 Test Item Value Reference Range Interpretation Comments RBC (test code = RBC) 5.46 4.70-6.10 [place] 752322-04-11 11:43:00 Test Item Value Reference Range Interpretation Comments Hgb (test code = Hgb) 16.3 14.0-18.0 [facility] CenterJbjidcgCLJYXKBHHX4244-34-83 11:43:00 Test Item Value Reference Range Interpretation Comments Hct (test code = Hct) 50.0 42.0-54.0 [facility] CenterAfoqaibQFTISJEVKS9145-28-20 11:43:00 Test Item Value Reference Range Interpretation Comments MCV (test code = MCV) 91.4 80.0-94.0 [facility] CenterDdjdljfJOUYXNVRMM6675-87-08 11:43:00 Test Item Value Reference Range Interpretation Comments MCH (test code = MCH) 29.9 pg 27.0-31.0 [facility] CenterAumafyeKBBZYIEILZ9347-16-86 11:43:00 Test Item Value Reference Range Interpretation Comments MCHC (test code = MCHC) 32.7 32.0-36.0 [facility] CenterOqfoxssYIDUYKCQXM5692-76-13 11:43:00 Test Item Value Reference Range Interpretation Comments RDW (test code = RDW) 15.7 11.5-14.5 [facility] CenterSseckjpXMKULHYBPU1594-55-11 11:43:00 Test Item Value Reference Range Interpretation Comments Platelet (test code = Platelet) 321 133-450 [facility] CenterKigbygaPAIKSIKCTM7916-89-30 11:43:00 Test Item Value Reference Range Interpretation Comments MPV (test code = MPV) 8.6 7.4-10.4 [facility] CenterKjsllgwUALUEFAWMY7453-71-59 11:43:00 Test Item Value Reference Range Interpretation Comments Segs (test code = Segs) 92.0 45.0-75.0 [facility] CenterBpiftfoGWSHDXLCYP4298-93-02 11:43:00 Test Item Value Reference Range Interpretation Comments Lymphocytes (test code = Lymphocytes) 5.2 20.0-40.0 [place] 752322-04-11 11:43:00 Test Item Value Reference Range Interpretation Comments Monocytes (test code = Monocytes) 1.6 2.0-12.0 [place] 752322-04-11 11:43:00 Test Item Value Reference Range Interpretation Comments Basophils (test code = 1.2 See_Comment [Aut omated message] The Basophils) system which ge nerated this result tra nsmitted reference range : <=1.0. The reference r boubacar was not used to int erpret this result as normal/abnormal . [place] [address]-04-11 11:43:00 Test Item Value Reference Range Interpretation Comments Neutrophils # (test code = Neutrophils 9.4 1.5-8.1 #) [place] [address]-04-11 11:43:00 Test Item Value Reference Range Interpretation Comments Lymphocytes # (test code = Lymphocytes 0.5 1.0-5.5 #) [place] 752322-04-11 11:43:00 Test Item Value Reference Range Interpretation Comments Monocytes # (test code 0.2 See_Comment [Aut omated message] The = Monocytes #) system which generated this result tra nsmitted reference range : <=0.8. The reference r boubacar was not used to int erpret this result as normal/abnormal . [place] [address]-04-11 11:43:00 Test Item Value Reference Range Interpretation Comments Basophils # (test code 0.1 See_Comment [Aut omated message] The = Basophils #) system which generated this result tra nsmitted reference range : <=0.2. The reference r boubacar was not used to int erpret this result as normal/abnormal . [place] 4[address]-04-09 09:18:00 Test Item Value Reference Range Interpretation Comments Coronavirus (COVID-19) Not Detected (10/21/21 OUMOU (test code = 4:18 AM) Coronavirus (COVID-19) OUMOU) [place] 4[address]-04-09 09:18:00 Test Item Value Reference Range Interpretation Comments Coronavirus (COVID-19) Not Detected (10/21/21 OUMOU (test code = 4:18 AM) Coronavirus (COVID-19) OUMOU) [place] [address]-04-09 09:18:00 Test Item Value Reference Range Interpretation Comments Coronavirus (COVID-19) Not Detected (10/21/21 OUMOU (test code = 4:18 AM) Coronavirus (COVID-19) OUMOU) [place] [address]-04-09 09:18:00 Test Item Value Reference Range Interpretation Comments Coronavirus (COVID-19) Not Detected (10/21/21 OUMOU (test code = 4:18 AM) Coronavirus (COVID-19) OUMOU) [facility]AX[facility]:SUSC:PT:ISOLATE:ORDQN:[id number] 08:19:00 Test Item Value Reference Range Interpretation Comments Culture: Urine (test >100,000 CFU/mL code = Culture: Providencia stuartii Urine) [facility] SouthAXONE:SUSC:PT:ISOLATE:ORDQN:[id number] 08:19:00 Test Item Value Reference Range Interpretation Comments Providencia stuartii Providencia stuartii (test code = Providencia stuartii) [facility] AND [id number] 08:19:00 Test Item Value Reference Range Interpretation Comments UA Color (test code = Yellow *NA*(10/21/21 3:19 UA Color) AM) [facility] AND [id number] 08:19:00 Test Item Value Reference Range Interpretation Comments UA Turbidity (test code Marked *ABN*(10/21/21 = UA Turbidity) 3:19 AM) [facility] AND [id number] 08:19:00 Test Item Value Reference Range Interpretation Comments UA Spec Grav (test code = UA Spec 1.013 1 Grav) [facility] AND [id number] 08:19:00 Test Item Value Reference Range Interpretation Comments UA pH (test code = UA pH) 5.0 1 5.0-8.0 [facility] AND [id number] 08:19:00 Test Item Value Reference Range Interpretation Comments UA Protein (test code = UA Negative mg/dL Protein) [facility] AND [id number] 08:19:00 Test Item Value Reference Range Interpretation Comments UA Glucose (test code = UA Negative mg/dL Glucose) [facility] AND [id number] 08:19:00 Test Item Value Reference Range Interpretation Comments UA Ketones (test code = UA Negative mg/dL Ketones) [facility] AND [id number] 08:19:00 Test Item Value Reference Range Interpretation Comments UA Bili (test code = Negative *NA*(10/21/21 UA Bili) 3:19 AM) [facility] AND [id number] 08:19:00 Test Item Value Reference Range Interpretation Comments UA Blood (test code = Small *ABN*(10/21/21 UA Blood) 3:19 AM) [facility] [id number] 08:19:00 Test Item Value Reference Range Interpretation Comments UA Urobilinogen (test code = UA no gt 0.1-1.0 Urobilinogen) [facility] [id number] 08:19:00 Test Item Value Reference Range Interpretation Comments UA Nitrite (test code Positive *ABN*(10/21/21 = UA Nitrite) 3:19 AM) [facility] [id number] 08:19:00 Test Item Value Reference Range Interpretation Comments UA Leuk Est (test code Large *ABN*(10/21/21 3:19 = UA Leuk Est) AM) [facility] [id number] 08:19:00 Test Item Value Reference Range Interpretation Comments UA WBC (test code = no gt See_Comment [Automa lester message] The UA WBC) system which ge nerated this result transmit lester reference range : <=5. The reference range was not used to interpr et this result as dany l/abnormal. [facility] [id number] 08:19:00 Test Item Value Reference Range Interpretation Comments UA RBC (test code = 8 See_Comment [Automa lester message] The UA RBC) system which ge nerated this result transmit lester reference range : <=2. The reference range was not used to interpr et this result as dany l/abnormal. [facility] [id number] 08:19:00 Test Item Value Reference Range Interpretation Comments UA Bacteria (test code = UA Occasional /HPF Bacteria) [facility] [id number] 08:19:00 Test Item Value Reference Range Interpretation Comments UA Mucus (test code = UA Mucus) Few /LPF [facility] [id number] 08:19:00 Test Item Value Reference Range Interpretation Comments UA Amorph Christi (test code = Occasional /HPF UA Amorph Christi) [facility] [id number] 08:19:00 Test Item Value Reference Range Interpretation Comments UA Sq Epi (test code = UA Sq Epi) None [facility]: [id number] 08:19:00 Test Item Value Reference Range Interpretation Comments Culture: Urine (test Holding For Better code = Culture: Urine) Growth [facility] FloriAXONE:SUSC:PT:ISOLATE:ORDQN:[id number] 08:19:00 Test Item Value Reference Range Interpretation Comments Culture: Urine (test >100,000 CFU/mL code = Culture: Providencia stuartii Urine) [facility] RubyAXONE:SUSC:PT:ISOLATE:ORDQN:[id number] 08:19:00 Test Item Value Reference Range Interpretation Comments Providencia stuartii Providencia stuartii (test code = Providencia stuartii) [facility] [id number] 08:19:00 Test Item Value Reference Range Interpretation Comments UA Color (test code = Yellow *NA*(10/21/21 3:19 UA Color) AM) [facility] [id number] 08:19:00 Test Item Value Reference Range Interpretation Comments UA Turbidity (test code Marked *ABN*(10/21/21 = UA Turbidity) 3:19 AM) [facility] [id number] 08:19:00 Test Item Value Reference Range Interpretation Comments UA Spec Grav (test code = UA Spec 1.013 1 Grav) [facility] [id number] 08:19:00 Test Item Value Reference Range Interpretation Comments UA pH (test code = UA pH) 5.0 1 5.0-8.0 [facility] [id number] 08:19:00 Test Item Value Reference Range Interpretation Comments UA Protein (test code = UA Negative mg/dL Protein) [facility] [id number] 08:19:00 Test Item Value Reference Range Interpretation Comments UA Glucose (test code = UA Negative mg/dL Glucose) [facility] [id number] 08:19:00 Test Item Value Reference Range Interpretation Comments UA Ketones (test code = UA Negative mg/dL Ketones) [facility] [id number] 08:19:00 Test Item Value Reference Range Interpretation Comments UA Bili (test code = Negative *NA*(10/21/21 UA Bili) 3:19 AM) [facility] [id number] 08:19:00 Test Item Value Reference Range Interpretation Comments UA Blood (test code = Small *ABN*(10/21/21 UA Blood) 3:19 AM) [facility] [id number] 08:19:00 Test Item Value Reference Range Interpretation Comments UA Urobilinogen (test code = UA no gt 0.1-1.0 Urobilinogen) [facility] [id number] 08:19:00 Test Item Value Reference Range Interpretation Comments UA Nitrite (test code Positive *ABN*(10/21/21 = UA Nitrite) 3:19 AM) [facility] [id number] 08:19:00 Test Item Value Reference Range Interpretation Comments UA Leuk Est (test code Large *ABN*(10/21/21 3:19 = UA Leuk Est) AM) [facility] [id number] 08:19:00 Test Item Value Reference Range Interpretation Comments UA WBC (test code = no gt See_Comment [Automa lester message] The UA WBC) system which ge nerated this result transmit lester reference range : <=5. The reference range was not used to interpr et this result as dany l/abnormal. [facility] [id number] 08:19:00 Test Item Value Reference Range Interpretation Comments UA RBC (test code = 8 See_Comment [Automa lester message] The UA RBC) system which ge nerated this result transmit lester reference range : <=2. The reference range was not used to interpr et this result as dany l/abnormal. [facility] [id number] 08:19:00 Test Item Value Reference Range Interpretation Comments UA Bacteria (test code = UA Occasional /HPF Bacteria) [facility] [id number] 08:19:00 Test Item Value Reference Range Interpretation Comments UA Mucus (test code = UA Mucus) Few /LPF [facility] [id number] 08:19:00 Test Item Value Reference Range Interpretation Comments UA Amorph Christi (test code = Occasional /HPF UA Amorph Christi) [facility] [id number] 08:19:00 Test Item Value Reference Range Interpretation Comments UA Sq Epi (test code = UA Sq Epi) None [facility] [id number] 08:19:00 Test Item Value Reference Range Interpretation Comments Culture: Urine (test Holding For Better code = Culture: Urine) Growth [facility] [place]:SUSC:PT:ISOLATE:ORDQN:[id number] 08:19:00 Test Item Value Reference Range Interpretation Comments Culture: Urine (test >100,000 CFU/mL code = Culture: Providencia stuartii Urine) Love RubyAXONE:SUSC:PT:ISOLATE:ORDQN:[id number] 08:19:00 Test Item Value Reference Range Interpretation Comments Providencia stuartii Providencia stuartii (test code = Providencia stuartii) [facility] [id number] 08:19:00 Test Item Value Reference Range Interpretation Comments UA Color (test code = Yellow *NA*(10/21/21 3:19 UA Color) AM) [facility] [id number] 08:19:00 Test Item Value Reference Range Interpretation Comments UA Turbidity (test code Marked *ABN*(10/21/21 = UA Turbidity) 3:19 AM) [facility] [id number] 08:19:00 Test Item Value Reference Range Interpretation Comments UA Spec Grav (test code = UA Spec 1.013 1 Grav) [facility] [id number] 08:19:00 Test Item Value Reference Range Interpretation Comments UA pH (test code = UA pH) 5.0 1 5.0-8.0 [facility] [id number] 08:19:00 Test Item Value Reference Range Interpretation Comments UA Protein (test code = UA Negative mg/dL Protein) [facility] [id number] 08:19:00 Test Item Value Reference Range Interpretation Comments UA Glucose (test code = UA Negative mg/dL Glucose) [facility] [id number] 08:19:00 Test Item Value Reference Range Interpretation Comments UA Ketones (test code = UA Negative mg/dL Ketones) [facility] [id number] 08:19:00 Test Item Value Reference Range Interpretation Comments UA Bili (test code = Negative *NA*(10/21/21 UA Bili) 3:19 AM) [facility] [id number] 08:19:00 Test Item Value Reference Range Interpretation Comments UA Blood (test code = Small *ABN*(10/21/21 UA Blood) 3:19 AM) [facility] [id number] 08:19:00 Test Item Value Reference Range Interpretation Comments UA Urobilinogen (test code = UA no gt 0.1-1.0 Urobilinogen) [facility] [id number] 08:19:00 Test Item Value Reference Range Interpretation Comments UA Nitrite (test code Positive *ABN*(10/21/21 = UA Nitrite) 3:19 AM) [facility] [id number] 08:19:00 Test Item Value Reference Range Interpretation Comments UA Leuk Est (test code Large *ABN*(10/21/21 3:19 = UA Leuk Est) AM) [facility] AND [id number] 08:19:00 Test Item Value Reference Range Interpretation Comments UA WBC (test code = no gt See_Comment [Automa lester message] The UA WBC) system which ge nerated this result transmit lester reference range : <=5. The reference range was not used to interpr et this result as dany l/abnormal. [facility] AND [id number] 08:19:00 Test Item Value Reference Range Interpretation Comments UA RBC (test code = 8 See_Comment [Automa lester message] The UA RBC) system which ge nerated this result transmit lester reference range : <=2. The reference range was not used to interpr et this result as dany l/abnormal. [facility] [id number] 08:19:00 Test Item Value Reference Range Interpretation Comments UA Bacteria (test code = UA Occasional /HPF Bacteria) [facility] [id number] 08:19:00 Test Item Value Reference Range Interpretation Comments UA Mucus (test code = UA Mucus) Few /LPF [facility] [id number] 08:19:00 Test Item Value Reference Range Interpretation Comments UA Amorph Christi (test code = Occasional /HPF UA Amorph Christi) [facility] [id number] 08:19:00 Test Item Value Reference Range Interpretation Comments UA Sq Epi (test code = UA Sq Epi) None [facility]: [id number] 08:19:00 Test Item Value Reference Range Interpretation Comments Culture: Urine (test Holding For Better code = Culture: Urine) Growth [facility]:SUSC:PT:ISOLATE:ORDQN:[id number] 08:19:00 Test Item Value Reference Range Interpretation Comments Culture: Urine (test >100,000 CFU/mL code = Culture: Providencia stuartii Urine) Love RubyAXONE:SUSC:PT:ISOLATE:ORDQN:[id number] 08:19:00 Test Item Value Reference Range Interpretation Comments Providencia stuartii Providencia stuartii (test code = Providencia stuartii) [facility] AND [id number] 08:19:00 Test Item Value Reference Range Interpretation Comments UA Color (test code = Yellow *NA*(10/21/21 3:19 UA Color) AM) [facility] AND [id number] 08:19:00 Test Item Value Reference Range Interpretation Comments UA Turbidity (test code Marked *ABN*(10/21/21 = UA Turbidity) 3:19 AM) [facility] AND [id number] 08:19:00 Test Item Value Reference Range Interpretation Comments UA Spec Grav (test code = UA Spec 1.013 1 Grav) [facility] AND [id number] 08:19:00 Test Item Value Reference Range Interpretation Comments UA pH (test code = UA pH) 5.0 1 5.0-8.0 [facility] [id number] 08:19:00 Test Item Value Reference Range Interpretation Comments UA Protein (test code = UA Negative mg/dL Protein) [facility] [id number] 08:19:00 Test Item Value Reference Range Interpretation Comments UA Glucose (test code = UA Negative mg/dL Glucose) [facility] [id number] 08:19:00 Test Item Value Reference Range Interpretation Comments UA Ketones (test code = UA Negative mg/dL Ketones) [facility] [id number] 08:19:00 Test Item Value Reference Range Interpretation Comments UA Bili (test code = Negative *NA*(10/21/21 UA Bili) 3:19 AM) [facility] [id number] 08:19:00 Test Item Value Reference Range Interpretation Comments UA Blood (test code = Small *ABN*(10/21/21 UA Blood) 3:19 AM) [facility] [id number] 08:19:00 Test Item Value Reference Range Interpretation Comments UA Urobilinogen (test code = UA no gt 0.1-1.0 Urobilinogen) [facility] AND [id number] 08:19:00 Test Item Value Reference Range Interpretation Comments UA Nitrite (test code Positive *ABN*(10/21/21 = UA Nitrite) 3:19 AM) [facility] AND [id number] 08:19:00 Test Item Value Reference Range Interpretation Comments UA Leuk Est (test code Large *ABN*(10/21/21 3:19 = UA Leuk Est) AM) [facility] AND [id number] 08:19:00 Test Item Value Reference Range Interpretation Comments UA WBC (test code = no gt See_Comment [Automa lester message] The UA WBC) system which ge nerated this result transmit lester reference range : <=5. The reference range was not used to interpr et this result as dany l/abnormal. [facility] AND [id number] 08:19:00 Test Item Value Reference Range Interpretation Comments UA RBC (test code = 8 See_Comment [Automa lester message] The UA RBC) system which ge nerated this result transmit lester reference range : <=2. The reference range was not used to interpr et this result as dany l/abnormal. [facility] [id number] 08:19:00 Test Item Value Reference Range Interpretation Comments UA Bacteria (test code = UA Occasional /HPF Bacteria) [facility] [id number] 08:19:00 Test Item Value Reference Range Interpretation Comments UA Mucus (test code = UA Mucus) Few /LPF [facility] [id number] 08:19:00 Test Item Value Reference Range Interpretation Comments UA Amorph Christi (test code = Occasional /HPF UA Amorph Christi) [facility] [id number] 08:19:00 Test Item Value Reference Range Interpretation Comments UA Sq Epi (test code = UA Sq Epi) None [facility]Culture[facility] [id number] 08:19:00 Test Item Value Reference Range Interpretation Comments Culture: Urine (test Holding For Better code = Culture: Urine) Growth [facility] CenterC[facility] [id number] 00:20:00 Test Item Value Reference Range Interpretation Comments ABO/Rh (test code = ABO/Rh) AB POS [facility] [id number] 00:20:00 Test Item Value Reference Range Interpretation Comments Antibody Scrn (test Negative (10/20/21 7:20 code = Antibody Scrn) PM) [facility] [employer] [id number] 00:20:00 Test Item Value Reference Range Interpretation Comments Glucose Lvl (test code = Glucose Lvl) 74 70-99 [facility] [employer] [id number] 00:20:00 Test Item Value Reference Range Interpretation Comments BUN (test code = BUN) 15 -22 [facility] CenterABA English [id number] 00:20:00 Test Item Value Reference Range Interpretation Comments Creatinine Lvl (test code = Creatinine 0.61 0.50-1.40 Lvl) [facility] [employer] [id number] 00:20:00 Test Item Value Reference Range Interpretation Comments Sodium Lvl (test code = Sodium Lvl) 139 135-145 [facility] [employer] [id number] 00:20:00 Test Item Value Reference Range Interpretation Comments Potassium Lvl (test code = Potassium 4.9 3.5-5.1 Lvl) [facility] [employer] [id number] 00:20:00 Test Item Value Reference Range Interpretation Comments Chloride Lvl (test code = Chloride Lvl) 105 95-109 [facility] [id number] 00:20:00 Test Item Value Reference Range Interpretation Comments CO2 (test code = CO2) 30 24-32 [facility] [employer] [id number] 00:20:00 Test Item Value Reference Range Interpretation Comments Calcium Lvl (test code = Calcium Lvl) 9.5 8.5-10.5 [facility] [employer] [id number] 00:20:00 Test Item Value Reference Range Interpretation Comments AGAP (test code = AGAP) 8.9 10.0-20.0 [facility] [id number] 00:20:00 Test Item Value Reference Range Interpretation Comments eGFR (test code = eGFR) 129 [facility] [id number] 00:20:00 Test Item Value Reference Range Interpretation Comments Lactic Acid Lvl (test code = Lactic 1.2 0.5-2.2 Acid Lvl) [facility] [id number] 00:20:00 Test Item Value Reference Range Interpretation Comments Procalcitonin Lvl (test 0.09 See_Comment [Au tomated message] code = Procalcitonin Lvl) Th e system which generated this result transmitted ref erence range: <=0.10. The reference range was not used to interpr et this result as normal/abnormal . [facility] CenterZtedtowKISZGIOPPR3631-32-09 00:20:00 Test Item Value Reference Range Interpretation Comments WBC (test code = WBC) 10.1 3.7-10.4 [place] 752322-04-09 00:20:00 Test Item Value Reference Range Interpretation Comments RBC (test code = RBC) 5.14 4.70-6.10 [facility] [id number] 00:20:00 Test Item Value Reference Range Interpretation Comments Hgb (test code = Hgb) 15.5 14.0-18.0 [facility] CenterCalxjahTJEYDCMCKR1673-19-77 00:20:00 Test Item Value Reference Range Interpretation Comments Hct (test code = Hct) 46.5 42.0-54.0 [place] 752322-04-09 00:20:00 Test Item Value Reference Range Interpretation Comments MCV (test code = MCV) 90.5 80.0-94.0 [place] 752322-04-09 00:20:00 Test Item Value Reference Range Interpretation Comments MCH (test code = MCH) 30.1 pg 27.0-31.0 [place] 752322-04-09 00:20:00 Test Item Value Reference Range Interpretation Comments MCHC (test code = MCHC) 33.3 32.0-36.0 [place] 752322-04-09 00:20:00 Test Item Value Reference Range Interpretation Comments RDW (test code = RDW) 15.7 11.5-14.5 [place] 752322-04-09 00:20:00 Test Item Value Reference Range Interpretation Comments Platelet (test code = Platelet) 302 133-450 [facility] [id number] 00:20:00 Test Item Value Reference Range Interpretation Comments MPV (test code = MPV) 8.9 7.4-10.4 [facility] [id number] 00:20:00 Test Item Value Reference Range Interpretation Comments Sed Rate (test code = 17 See_Comment [Auto mated message] The Sed Rate) system which ge nerated this result transmit lester reference range : <=15. The reference range was not used to interpr et this result as dany l/abnormal. [facility] C[id number] 00:20:00 Test Item Value Reference Range Interpretation Comments PT (test code = PT) 13.1 s 12.0-14.7 [facility] C[id number] 00:20:00 Test Item Value Reference Range Interpretation Comments INR (test code = INR) 1.00 1 0.85-1.17 [facility] CenterJfctptlTOEXYKYYFF8625-30-50 00:20:00 Test Item Value Reference Range Interpretation Comments PTT (test code = PTT) 31.5 s 22.9-35.8 [facility] CenterTodzrrqTHUMSADEPI2039-20-85 00:20:00 Test Item Value Reference Range Interpretation Comments Segs (test code = Segs) 68.7 45.0-75.0 [facility] CenterMdsumvpHTLTBVRCIY8923-77-81 00:20:00 Test Item Value Reference Range Interpretation Comments Lymphocytes (test code = Lymphocytes) 19.6 20.0-40.0 [facility] CenterPvzavqcVZPMMGSXZY8840-74-10 00:20:00 Test Item Value Reference Range Interpretation Comments Monocytes (test code = Monocytes) 9.4 2.0-12.0 [place] 752322-04-09 00:20:00 Test Item Value Reference Range Interpretation Comments Eosinophils (test code = 1.4 See_Comment [A utomated message] The Eosinophils) system which ge nerated this result tra nsmitted reference range : <=4.0. The reference r boubacar was not used to int erpret this result as normal/abnormal . [place] 752322-04-09 00:20:00 Test Item Value Reference Range Interpretation Comments Basophils (test code = 0.9 See_Comment [Aut omated message] The Basophils) system which ge nerated this result tra nsmitted reference range : <=1.0. The reference r boubacar was not used to int erpret this result as normal/abnormal . [facility] CenterXrcstbhYIJEXNTJMG9641-42-20 00:20:00 Test Item Value Reference Range Interpretation Comments Neutrophils # (test code = Neutrophils 6.9 1.5-8.1 #) [facility] CenterZzpggnkTIAYWRPQRV1597-39-08 00:20:00 Test Item Value Reference Range Interpretation Comments Lymphocytes # (test code = Lymphocytes 2.0 1.0-5.5 #) [facility] CenterVmcvdaqCWMHICCKKF8638-22-11 00:20:00 Test Item Value Reference Range Interpretation Comments Monocytes # (test code 1.0 See_Comment [Aut omated message] The = Monocytes #) system which generated this result tra nsmitted reference range : <=0.8. The reference r boubacar was not used to int erpret this result as normal/abnormal . [facility] CenterGebdlirLAAEAYEIAL5104-95-22 00:20:00 Test Item Value Reference Range Interpretation Comments Eosinophils # (test code 0.1 See_Comment [A utomated message] The = Eosinophils #) system whic h generated this result tra nsmitted reference range : <=0.5. The reference r boubacar was not used to int erpret this result as normal/abnormal . [facility] CenterOvpipfdIIOENGVMKF7461-53-06 00:20:00 Test Item Value Reference Range Interpretation Comments Basophils # (test code 0.1 See_Comment [Aut omated message] The = Basophils #) system which generated this result tra nsmitted reference range : <=0.2. The reference r boubacar was not used to int erpret this result as normal/abnormal . [facility] CenterQyqptljLDEFTWIZTC7205-48-60 00:20:00 Test Item Value Reference Range Interpretation Comments C-REACTIVE PROTEIN (test code = 13.2 C-REACTIVE PROTEIN) [facility] [id number] 00:20:00 Test Item Value Reference Range Interpretation Comments ABO/Rh (test code = ABO/Rh) AB POS [facility] [employer] [id number] 00:20:00 Test Item Value Reference Range Interpretation Comments Antibody Scrn (test Negative (48/22 7:20 code = Antibody Scrn) PM) [facility]2022-04-09 00:20:00 Test Item Value Reference Range Interpretation Comments Glucose Lvl (test code = Glucose Lvl) 74 70-99 [facility]2022-04-09 00:20:00 Test Item Value Reference Range Interpretation Comments BUN (test code = BUN) 15 7-22 [place] 938802-04-09 00:20:00 Test Item Value Reference Range Interpretation Comments Creatinine Lvl (test code = Creatinine 0.61 0.50-1.40 Lvl) [facility]2022-04-09 00:20:00 Test Item Value Reference Range Interpretation Comments Sodium Lvl (test code = Sodium Lvl) 139 135-145 [place] 938802-04-09 00:20:00 Test Item Value Reference Range Interpretation Comments Potassium Lvl (test code = Potassium 4.9 3.5-5.1 Lvl) [place] 938802-04-09 00:20:00 Test Item Value Reference Range Interpretation Comments Chloride Lvl (test code = Chloride Lvl) 105 95-109 [facility]2022-04-09 00:20:00 Test Item Value Reference Range Interpretation Comments CO2 (test code = CO2) 30 24-32 [facility]2022-04-09 00:20:00 Test Item Value Reference Range Interpretation Comments Calcium Lvl (test code = Calcium Lvl) 9.5 8.5-10.5 [place] 938802-04-09 00:20:00 Test Item Value Reference Range Interpretation Comments AGAP (test code = AGAP) 8.9 10.0-20.0 [place] 938802-04-09 00:20:00 Test Item Value Reference Range Interpretation Comments eGFR (test code = eGFR) 129 [facility]2022-04-09 00:20:00 Test Item Value Reference Range Interpretation Comments Lactic Acid Lvl (test code = Lactic 1.2 0.5-2.2 Acid Lvl) [place] 938802-04-09 00:20:00 Test Item Value Reference Range Interpretation Comments Procalcitonin Lvl (test 0.09 See_Comment [Au tomated message] code = Procalcitonin Lvl) Th e system which generated this result transmitted ref erence range: <=0.10. The reference range was not used to interpr et this result as normal/abnormal . [facility] CenterZeelkssWUBYNMFEIT0542-17-87 00:20:00 Test Item Value Reference Range Interpretation Comments WBC (test code = WBC) 10.1 3.7-10.4 [place] 752322-04-09 00:20:00 Test Item Value Reference Range Interpretation Comments RBC (test code = RBC) 5.14 4.70-6.10 [facility] CenterIedlmxzAEIJGBIZZM2002-34-13 00:20:00 Test Item Value Reference Range Interpretation Comments Hgb (test code = Hgb) 15.5 14.0-18.0 [place] [address]-04-09 00:20:00 Test Item Value Reference Range Interpretation Comments Hct (test code = Hct) 46.5 42.0-54.0 [place] 752322-04-09 00:20:00 Test Item Value Reference Range Interpretation Comments MCV (test code = MCV) 90.5 80.0-94.0 [place] 752322-04-09 00:20:00 Test Item Value Reference Range Interpretation Comments MCH (test code = MCH) 30.1 pg 27.0-31.0 [place] 752322-04-09 00:20:00 Test Item Value Reference Range Interpretation Comments MCHC (test code = MCHC) 33.3 32.0-36.0 [place] 752322-04-09 00:20:00 Test Item Value Reference Range Interpretation Comments RDW (test code = RDW) 15.7 11.5-14.5 [place] 752322-04-09 00:20:00 Test Item Value Reference Range Interpretation Comments Platelet (test code = Platelet) 302 133-450 [place] 752322-04-09 00:20:00 Test Item Value Reference Range Interpretation Comments MPV (test code = MPV) 8.9 7.4-10.4 [place] [address]-04-09 00:20:00 Test Item Value Reference Range Interpretation Comments Sed Rate (test code = 17 See_Comment [Auto mated message] The Sed Rate) system which ge nerated this result transmit lester reference range : <=15. The reference range was not used to interpr et this result as dany l/abnormal. [facility] CenterBgnxrtnAILVYTMYVG0821-14-81 00:20:00 Test Item Value Reference Range Interpretation Comments PT (test code = PT) 13.1 s 12.0-14.7 [place] 752322-04-09 00:20:00 Test Item Value Reference Range Interpretation Comments INR (test code = INR) 1.00 1 0.85-1.17 [place] 752322-04-09 00:20:00 Test Item Value Reference Range Interpretation Comments PTT (test code = PTT) 31.5 s 22.9-35.8 [place] 752322-04-09 00:20:00 Test Item Value Reference Range Interpretation Comments Segs (test code = Segs) 68.7 45.0-75.0 [place] [address]-04-09 00:20:00 Test Item Value Reference Range Interpretation Comments Lymphocytes (test code = Lymphocytes) 19.6 20.0-40.0 [place] 752322-04-09 00:20:00 Test Item Value Reference Range Interpretation Comments Monocytes (test code = Monocytes) 9.4 2.0-12.0 [place] 752322-04-09 00:20:00 Test Item Value Reference Range Interpretation Comments Eosinophils (test code = 1.4 See_Comment [A utomated message] The Eosinophils) system which ge nerated this result tra nsmitted reference range : <=4.0. The reference r boubacar was not used to int erpret this result as normal/abnormal . [facility] CenterIiydjnlHHOUVOFCEM2766-04-07 00:20:00 Test Item Value Reference Range Interpretation Comments Basophils (test code = 0.9 See_Comment [Aut omated message] The Basophils) system which ge nerated this result tra nsmitted reference range : <=1.0. The reference r boubacar was not used to int erpret this result as normal/abnormal . [facility] CenterYcccfgdAFLFPJVBCS3012-19-33 00:20:00 Test Item Value Reference Range Interpretation Comments Neutrophils # (test code = Neutrophils 6.9 1.5-8.1 #) [facility] CenterEjoqvuyRRXGOXRHKC6803-43-92 00:20:00 Test Item Value Reference Range Interpretation Comments Lymphocytes # (test code = Lymphocytes 2.0 1.0-5.5 #) [facility] CenterWycxjrsOFQUOUKMUP7720-68-56 00:20:00 Test Item Value Reference Range Interpretation Comments Monocytes # (test code 1.0 See_Comment [Aut omated message] The = Monocytes #) system which generated this result tra nsmitted reference range : <=0.8. The reference r boubacar was not used to int erpret this result as normal/abnormal . [facility] CenterDfkxealBDRIHNOZVJ6635-82-05 00:20:00 Test Item Value Reference Range Interpretation Comments Eosinophils # (test code 0.1 See_Comment [A utomated message] The = Eosinophils #) system whic h generated this result tra nsmitted reference range : <=0.5. The reference r boubacar was not used to int erpret this result as normal/abnormal . [facility] CenterGgsteknYISAKFAANV6143-94-01 00:20:00 Test Item Value Reference Range Interpretation Comments Basophils # (test code 0.1 See_Comment [Aut omated message] The = Basophils #) system which generated this result tra nsmitted reference range : <=0.2. The reference r boubacar was not used to int erpret this result as normal/abnormal . [facility] CenterBwyvjxvGKKVNEJDJV9841-56-53 00:20:00 Test Item Value Reference Range Interpretation Comments C-REACTIVE PROTEIN (test code = 13.2 C-REACTIVE PROTEIN) [facility] CenterC[facility] [id number] 00:20:00 Test Item Value Reference Range Interpretation Comments ABO/Rh (test code = ABO/Rh) AB POS [facility] [employer] [id number] 00:20:00 Test Item Value Reference Range Interpretation Comments Antibody Scrn (test Negative (10/20/21 7:20 code = Antibody Scrn) PM) [facility] [employer] [id number] 00:20:00 Test Item Value Reference Range Interpretation Comments ABO/Rh (test code = ABO/Rh) AB POS [facility] [employer] [id number] 00:20:00 Test Item Value Reference Range Interpretation Comments Antibody Scrn (test Negative (10/20/21 7:20 code = Antibody Scrn) PM) [facility] [employer]IP[employer] [id number] 00:20:00 Test Item Value Reference Range Interpretation Comments Glucose Lvl (test code = Glucose Lvl) 74 70-99 [facility]2022-04-09 00:20:00 Test Item Value Reference Range Interpretation Comments BUN (test code = BUN) 15 7-22 [place] 938802-04-09 00:20:00 Test Item Value Reference Range Interpretation Comments Creatinine Lvl (test code = Creatinine 0.61 0.50-1.40 Lvl) [place] 938802-04-09 00:20:00 Test Item Value Reference Range Interpretation Comments Sodium Lvl (test code = Sodium Lvl) 139 135-145 [place] 938802-04-09 00:20:00 Test Item Value Reference Range Interpretation Comments Glucose Lvl (test code = Glucose Lvl) 74 70-99 [place] 938802-04-09 00:20:00 Test Item Value Reference Range Interpretation Comments Potassium Lvl (test code = Potassium 4.9 3.5-5.1 Lvl) [place] 938802-04-09 00:20:00 Test Item Value Reference Range Interpretation Comments Chloride Lvl (test code = Chloride Lvl) 105 95-109 [place] 938802-04-09 00:20:00 Test Item Value Reference Range Interpretation Comments CO2 (test code = CO2) 30 24-32 [place] 938802-04-09 00:20:00 Test Item Value Reference Range Interpretation Comments Calcium Lvl (test code = Calcium Lvl) 9.5 8.5-10.5 [place] 938802-04-09 00:20:00 Test Item Value Reference Range Interpretation Comments AGAP (test code = AGAP) 8.9 10.0-20.0 [facility]2022-04-09 00:20:00 Test Item Value Reference Range Interpretation Comments eGFR (test code = eGFR) 129 [place] 938802-04-09 00:20:00 Test Item Value Reference Range Interpretation Comments Lactic Acid Lvl (test code = Lactic 1.2 0.5-2.2 Acid Lvl) [place] 938802-04-09 00:20:00 Test Item Value Reference Range Interpretation Comments Procalcitonin Lvl (test 0.09 See_Comment [Au tomated message] code = Procalcitonin Lvl) e system which generated this result transmitted ref erence range: <=0.10. The reference range was not used to interpr et this result as normal/abnormal . [facility] CenterFtzobbvMVZGXXJKYQ2655-63-41 00:20:00 Test Item Value Reference Range Interpretation Comments WBC (test code = WBC) 10.1 3.7-10.4 [place] 752322-04-09 00:20:00 Test Item Value Reference Range Interpretation Comments RBC (test code = RBC) 5.14 4.70-6.10 [facility]2022-04-09 00:20:00 Test Item Value Reference Range Interpretation Comments BUN (test code = BUN) 15 7-22 [facility] CenterAfxtwscBIIOUVGAFD7453-46-11 00:20:00 Test Item Value Reference Range Interpretation Comments Hgb (test code = Hgb) 15.5 14.0-18.0 [place] 752322-04-09 00:20:00 Test Item Value Reference Range Interpretation Comments Hct (test code = Hct) 46.5 42.0-54.0 [place] 752322-04-09 00:20:00 Test Item Value Reference Range Interpretation Comments MCV (test code = MCV) 90.5 80.0-94.0 [facility] CenterTyuzyjyHFVLMCWTWS1843-76-95 00:20:00 Test Item Value Reference Range Interpretation Comments MCH (test code = MCH) 30.1 pg 27.0-31.0 [facility] CenterUttglfqVHXDZQLCZL2819-23-37 00:20:00 Test Item Value Reference Range Interpretation Comments MCHC (test code = MCHC) 33.3 32.0-36.0 [place] 752322-04-09 00:20:00 Test Item Value Reference Range Interpretation Comments RDW (test code = RDW) 15.7 11.5-14.5 [facility] CenterPlvuksqDIXNNJLULC9826-12-35 00:20:00 Test Item Value Reference Range Interpretation Comments Platelet (test code = Platelet) 302 133-450 [facility] CenterJdduvacDMVLZQGDHT7256-24-46 00:20:00 Test Item Value Reference Range Interpretation Comments MPV (test code = MPV) 8.9 7.4-10.4 [place] [address]-04-09 00:20:00 Test Item Value Reference Range Interpretation Comments Sed Rate (test code = 17 See_Comment [Auto mated message] The Sed Rate) system which ge nerated this result transmit lester reference range : <=15. The reference range was not used to interpr et this result as dany l/abnormal. [facility] CenterSfspxzfIVKYSASACN6142-07-54 00:20:00 Test Item Value Reference Range Interpretation Comments PT (test code = PT) 13.1 s 12.0-14.7 [facility]2022-04-09 00:20:00 Test Item Value Reference Range Interpretation Comments Creatinine Lvl (test code = Creatinine 0.61 0.50-1.40 Lvl) [facility] CenterYmwtloaGTAHUAXYPY7125-30-09 00:20:00 Test Item Value Reference Range Interpretation Comments INR (test code = INR) 1.00 1 0.85-1.17 [facility] CenterXwuwifmEPZFFNIALI1746-88-13 00:20:00 Test Item Value Reference Range Interpretation Comments PTT (test code = PTT) 31.5 s 22.9-35.8 [facility] CenterMpxehosMSARWUSPCE2062-22-45 00:20:00 Test Item Value Reference Range Interpretation Comments Segs (test code = Segs) 68.7 45.0-75.0 [facility] CenterXyxipchMKLFSEOYJC8809-59-69 00:20:00 Test Item Value Reference Range Interpretation Comments Lymphocytes (test code = Lymphocytes) 19.6 20.0-40.0 [facility] CenterKwppjyrZCZHQRAMRC6731-63-86 00:20:00 Test Item Value Reference Range Interpretation Comments Monocytes (test code = Monocytes) 9.4 2.0-12.0 [place] 752322-04-09 00:20:00 Test Item Value Reference Range Interpretation Comments Eosinophils (test code = 1.4 See_Comment [A utomated message] The Eosinophils) system which ge nerated this result tra nsmitted reference range : <=4.0. The reference r boubacar was not used to int erpret this result as normal/abnormal . [facility] CenterOphhwplCHXJGTZNTB8710-40-84 00:20:00 Test Item Value Reference Range Interpretation Comments Basophils (test code = 0.9 See_Comment [Aut omated message] The Basophils) system which ge nerated this result tra nsmitted reference range : <=1.0. The reference r boubacar was not used to int erpret this result as normal/abnormal . [place] [address]-04-09 00:20:00 Test Item Value Reference Range Interpretation Comments Neutrophils # (test code = Neutrophils 6.9 1.5-8.1 #) [facility] CenterVzhhvdsPKDRFXJIGS1649-48-30 00:20:00 Test Item Value Reference Range Interpretation Comments Lymphocytes # (test code = Lymphocytes 2.0 1.0-5.5 #) [facility] CenterBrcxpttOSDAHRDSLA9764-15-66 00:20:00 Test Item Value Reference Range Interpretation Comments Monocytes # (test code 1.0 See_Comment [Aut omated message] The = Monocytes #) system which generated this result tra nsmitted reference range : <=0.8. The reference r boubacar was not used to int erpret this result as normal/abnormal . [facility] MUTSN2142-00-85 00:20:00 Test Item Value Reference Range Interpretation Comments Sodium Lvl (test code = Sodium Lvl) 139 135-145 [facility] CenterIxbgnrfSETIKMQBJB5834-60-55 00:20:00 Test Item Value Reference Range Interpretation Comments Eosinophils # (test code 0.1 See_Comment [A utomated message] The = Eosinophils #) system whic h generated this result tra nsmitted reference range : <=0.5. The reference r boubacar was not used to int erpret this result as normal/abnormal . [facility] CenterYealhpzSOVTLNFIIF9796-84-67 00:20:00 Test Item Value Reference Range Interpretation Comments Basophils # (test code 0.1 See_Comment [Aut omated message] The = Basophils #) system which generated this result tra nsmitted reference range : <=0.2. The reference r boubacar was not used to int erpret this result as normal/abnormal . [facility] CenterXpspavjZYDMKCXQTO5810-51-42 00:20:00 Test Item Value Reference Range Interpretation Comments C-REACTIVE PROTEIN (test code = 13.2 C-REACTIVE PROTEIN) [facility]ABA [facility] [id number] 00:20:00 Test Item Value Reference Range Interpretation Comments Potassium Lvl (test code = Potassium 4.9 3.5-5.1 Lvl) [facility] [id number] 00:20:00 Test Item Value Reference Range Interpretation Comments Chloride Lvl (test code = Chloride Lvl) 105 95-109 [facility] IDEPW1364-10-03 00:20:00 Test Item Value Reference Range Interpretation Comments CO2 (test code = CO2) 30 24-32 [facility]2022-04-09 00:20:00 Test Item Value Reference Range Interpretation Comments Calcium Lvl (test code = Calcium Lvl) 9.5 8.5-10.5 [place] 938802-04-09 00:20:00 Test Item Value Reference Range Interpretation Comments AGAP (test code = AGAP) 8.9 10.0-20.0 [place] 938802-04-09 00:20:00 Test Item Value Reference Range Interpretation Comments eGFR (test code = eGFR) 129 [facility]2022-04-09 00:20:00 Test Item Value Reference Range Interpretation Comments Lactic Acid Lvl (test code = Lactic 1.2 0.5-2.2 Acid Lvl) [place] 938802-04-09 00:20:00 Test Item Value Reference Range Interpretation Comments Procalcitonin Lvl (test 0.09 See_Comment [Au tomated message] code = Procalcitonin Lvl) e system which generated this result transmitted ref erence range: <=0.10. The reference range was not used to interpr et this result as normal/abnormal . [facility] CenterSnygfdkRHCPEEZUEA0089-93-29 00:20:00 Test Item Value Reference Range Interpretation Comments WBC (test code = WBC) 10.1 3.7-10.4 [place] 752322-04-09 00:20:00 Test Item Value Reference Range Interpretation Comments RBC (test code = RBC) 5.14 4.70-6.10 [place] 752322-04-09 00:20:00 Test Item Value Reference Range Interpretation Comments Hgb (test code = Hgb) 15.5 14.0-18.0 [place] [address]-04-09 00:20:00 Test Item Value Reference Range Interpretation Comments Hct (test code = Hct) 46.5 42.0-54.0 [place] 752322-04-09 00:20:00 Test Item Value Reference Range Interpretation Comments MCV (test code = MCV) 90.5 80.0-94.0 [place] [address]-04-09 00:20:00 Test Item Value Reference Range Interpretation Comments MCH (test code = MCH) 30.1 pg 27.0-31.0 [facility] CenterLnufijtJWTMTGJJDH3472-68-46 00:20:00 Test Item Value Reference Range Interpretation Comments MCHC (test code = MCHC) 33.3 32.0-36.0 [facility] CenterWjflvfzMNJNOKKBGO2884-28-47 00:20:00 Test Item Value Reference Range Interpretation Comments RDW (test code = RDW) 15.7 11.5-14.5 [facility] CenterRqeccgvLOJUVKUZLW1470-45-35 00:20:00 Test Item Value Reference Range Interpretation Comments Platelet (test code = Platelet) 302 133-450 [facility] CenterZjfvvmpIUGUGCBBYZ4747-95-83 00:20:00 Test Item Value Reference Range Interpretation Comments MPV (test code = MPV) 8.9 7.4-10.4 [facility] CenterQnuhbfkEQBQVEXTWP8372-54-87 00:20:00 Test Item Value Reference Range Interpretation Comments Sed Rate (test code = 17 See_Comment [Auto mated message] The Sed Rate) system which ge nerated this result transmit lester reference range : <=15. The reference range was not used to interpr et this result as dany l/abnormal. [facility] CenterAqtwpveNYPQYBCMGS0697-93-27 00:20:00 Test Item Value Reference Range Interpretation Comments PT (test code = PT) 13.1 s 12.0-14.7 [facility] CenterBeyjokwKICJGVEMVM4896-18-92 00:20:00 Test Item Value Reference Range Interpretation Comments INR (test code = INR) 1.00 1 0.85-1.17 [facility] CenterZptiwqvVJLSNTYSVZ8018-77-88 00:20:00 Test Item Value Reference Range Interpretation Comments PTT (test code = PTT) 31.5 s 22.9-35.8 [facility] CenterPdyrcgnHCSBHZQADS9254-64-61 00:20:00 Test Item Value Reference Range Interpretation Comments Segs (test code = Segs) 68.7 45.0-75.0 [facility] CenterHrzjoerFQSWJTKWEN3102-95-05 00:20:00 Test Item Value Reference Range Interpretation Comments Lymphocytes (test code = Lymphocytes) 19.6 20.0-40.0 [facility] CenterUpjkkmhJGLNSUMZTO4975-75-58 00:20:00 Test Item Value Reference Range Interpretation Comments Monocytes (test code = Monocytes) 9.4 2.0-12.0 [place] 752322-04-09 00:20:00 Test Item Value Reference Range Interpretation Comments Eosinophils (test code = 1.4 See_Comment [A utomated message] The Eosinophils) system which ge nerated this result tra nsmitted reference range : <=4.0. The reference r boubacar was not used to int erpret this result as normal/abnormal . [facility] CenterBflvtboGXDRRREEVR6096-69-41 00:20:00 Test Item Value Reference Range Interpretation Comments Basophils (test code = 0.9 See_Comment [Aut omated message] The Basophils) system which ge nerated this result tra nsmitted reference range : <=1.0. The reference r boubacar was not used to int erpret this result as normal/abnormal . [facility] CenterXunrmrcUQCHYDMWTO6742-95-76 00:20:00 Test Item Value Reference Range Interpretation Comments Neutrophils # (test code = Neutrophils 6.9 1.5-8.1 #) [facility] CenterOxkestgHPKIDFXVPY4640-19-10 00:20:00 Test Item Value Reference Range Interpretation Comments Lymphocytes # (test code = Lymphocytes 2.0 1.0-5.5 #) [facility] CenterMgudgdpWWCRKZUPUK7874-18-35 00:20:00 Test Item Value Reference Range Interpretation Comments Monocytes # (test code 1.0 See_Comment [Aut omated message] The = Monocytes #) system which generated this result tra nsmitted reference range : <=0.8. The reference r boubacar was not used to int erpret this result as normal/abnormal . [facility] CenterFrkfeuzYXLDKXCBXK1861-80-20 00:20:00 Test Item Value Reference Range Interpretation Comments Eosinophils # (test code 0.1 See_Comment [A utomated message] The = Eosinophils #) system whic h generated this result tra nsmitted reference range : <=0.5. The reference r boubacar was not used to int erpret this result as normal/abnormal . [facility] CenterKshazyxKRHSPDMXUZ3340-41-71 00:20:00 Test Item Value Reference Range Interpretation Comments Basophils # (test code 0.1 See_Comment [Aut omated message] The = Basophils #) system which generated this result tra nsmitted reference range : <=0.2. The reference r boubacar was not used to int erpret this result as normal/abnormal . [facility] CenterKigvfinEDKJJUYMVS7396-51-49 00:20:00 Test Item Value Reference Range Interpretation Comments C-REACTIVE PROTEIN (test code = 13.2 C-REACTIVE PROTEIN) [facility] WITH [id number] 04:47:32 Test Item Value Reference Range Interpretation [...] RDW-SD (test code = 45.7 fL 38.5-51.6 51586-5) RDW-CV (test code = 14.6 % 12.1-15.4 788-0) PLT (test code = See_Comment [Automated 777-3) message] The sy stem which generated this result transmitted reference range : 150 - 328 10*3/ ?L. The reference r boubacar was not used to interpret this result as normal/abnormal . MPV (test code = 11.0 fL 9.8-13.0 79119-4) NRBC/100 WBC (test See_Comment [Automat ed code = 5908175667) message] The system which generated this result transmitted reference range : 0.0 - 10.0 /100 WBCs. The refer ence range was not u sed to interpret th is result as normal/abnormal . NRBC x10^3 (test code <0.01 See_Comment [Auto mated = 8629222814) message] The s ystem which generated this result transmitted reference range : 10*3/?L. The reference range was not used to interpret this result as normal/abnormal . GRAN MAT (NEUT) % 72.2 % (test code = 770-8) IMM GRAN % (test code 0.60 % = 3652033960) LYMPH % (test code = 17.7 % 736-9) MONO % (test code = 7.4 % 5905-5) EOS % (test code = 1.8 % 713-8) BASO % (test code = 0.3 % 706-2) GRAN MAT x10^3(ANC) 9.09 10*3/uL 1.99-6.95 H (test code = 6910303852) IMM GRAN x10^3 (test 0.07 10*3/uL 0.00-0.06 H code = 3401107530) LYMPH x10^3 (test code 2.22 10*3/uL 1.09-3.23 = 731-0) MONO x10^3 (test code 0.93 10*3/uL 0.36-1.02 = 742-7) EOS x10^3 (test code = 0.22 10*3/uL 0.06-0.53 711-2) BASO x10^3 (test code 0.04 10*3/uL 0.01-0.09 = 704-7) Lab Interpretation Abnormal (test code = 57664-7) [facility]. METABOLIC PANEL (21693)2021-10-16 04:36:41 Test Item Value Reference Range Interpretation Comments NA (test code = 138 mmol/L 135-145 5786827584) K (test code = 4.6 mmol/L 3.5-5.0 4086315188) CL (test code = 105 mmol/L 98-108 1227553326) CO2 TOTAL (test code = 21 mmol/L 23-31 L 8841057037) AGAP (test code = 2-16 0456983219) BUN (test code = 13 mg/dL 7-23 5603538947) GLUCOSE (test code = 167 mg/dL 70-110 H 6327544683) CREATININE (test code = 0.48 mg/dL 0.60-1.25 L 3006346929) TOTAL BILI (test code = 0.8 mg/dL 0.1-1.2 0807438084) CALCIUM (test code = 9.3 mg/dL 8.6-10.6 3861730274) T PROTEIN (test code = 7.6 g/dL 6.3-8.2 6981552070) ALBUMIN (test code = 4.2 g/dL 3.5-5.0 4500967220) ALK PHOS (test code = 98 U/L 34-122 1227307221) ALTv (test code = 71 U/L 5-50 H 1742-6) AST(SGOT) (test code = 36 U/L 13-40 4940669184) eGFR (test code = mL/min/1.73m2 3468555578) ARPITA (test code = ARPITA) Association of [...] tests). Lab Interpretation Abnormal (test code = 69958-8) [facility] Test Item Value Reference Range Interpretation Comments MAGNESIUM (test code = 9891574282) 1.6 mg/dL 1.7-2.4 L Lab Interpretation (test code = Abnormal 06324-7) [facility] [id number] 07:52:00 Test Item Value Reference Range Interpretation Comments ABO/Rh (test code = ABO/Rh) AB POS [facility] [id number] 07:52:00 Test Item Value Reference Range Interpretation Comments Antibody Scrn (test Negative (10/09/21 2:52 code = Antibody Scrn) AM) [facility] [id number] 07:52:00 Test Item Value Reference Range Interpretation Comments Glucose Lvl (test code = Glucose Lvl) 291 70-99 [facility] DJVYB1817-21-59 07:52:00 Test Item Value Reference Range Interpretation Comments BUN (test code = BUN) 16 - [facility] [id number] 07:52:00 Test Item Value Reference Range Interpretation Comments Creatinine Lvl (test code = Creatinine 0.83 0.50-1.40 Lvl) [facility] [id number] 07:52:00 Test Item Value Reference Range Interpretation Comments Sodium Lvl (test code = Sodium Lvl) 138 135-145 [facility] [id number] 07:52:00 Test Item Value Reference Range Interpretation Comments Potassium Lvl (test code = Potassium 4.7 3.5-5.1 Lvl) [facility] [id number] 07:52:00 Test Item Value Reference Range Interpretation Comments Chloride Lvl (test code = Chloride Lvl) 113 95-109 [facility] EHUNY0027-03-17 07:52:00 Test Item Value Reference Range Interpretation Comments CO2 (test code = CO2) 18 24-32 [facility] [employer] WCFRR2914-55-07 07:52:00 Test Item Value Reference Range Interpretation Comments AGAP (test code = AGAP) 11.7 10.0-20.0 [facility] [employer] [id number] 07:52:00 Test Item Value Reference Range Interpretation Comments Calcium Lvl (test code = Calcium Lvl) 9.4 8.5-10.5 [facility] [id number] 07:52:00 Test Item Value Reference Range Interpretation Comments eGFR (test code = eGFR) 113 [facility] CenterXksbunxANGXVTVPXE2232-07-80 07:52:00 Test Item Value Reference Range Interpretation Comments WBC (test code = WBC) 5.5 3.7-10.4 [facility] CenterYgqwovoJDJJQJEJXF1736-89-76 07:52:00 Test Item Value Reference Range Interpretation Comments RBC (test code = RBC) 5.53 4.70-6.10 [facility] CenterJywcbxaKEEOFMERPU3915-96-21 07:52:00 Test Item Value Reference Range Interpretation Comments Hgb (test code = Hgb) 16.3 14.0-18.0 [facility] CenterZjqlkfnMVRPKIWKRS8670-41-45 07:52:00 Test Item Value Reference Range Interpretation Comments Hct (test code = Hct) 50.5 42.0-54.0 [facility] CenterWzmzqmbLDWDEMPNQV4605-20-96 07:52:00 Test Item Value Reference Range Interpretation Comments MCV (test code = MCV) 91.3 80.0-94.0 [facility] CenterCadjoqyZFBCVSZWKO6050-52-47 07:52:00 Test Item Value Reference Range Interpretation Comments MCH (test code = MCH) 29.5 pg 27.0-31.0 [facility] CenterXhntlebFGWBKYMDLG0777-70-42 07:52:00 Test Item Value Reference Range Interpretation Comments MCHC (test code = MCHC) 32.3 32.0-36.0 [facility] CenterAvnuvwxPCIUXGXAVO9967-19-62 07:52:00 Test Item Value Reference Range Interpretation Comments RDW (test code = RDW) 15.4 11.5-14.5 [facility] CenterEnyvatwGQTSMZMEVT9904-51-79 07:52:00 Test Item Value Reference Range Interpretation Comments Platelet (test code = Platelet) 210 133-450 [facility] CenterDylwfvrEDTMWZQUNC1754-46-96 07:52:00 Test Item Value Reference Range Interpretation Comments MPV (test code = MPV) 9.3 7.4-10.4 [facility] CenterC[facility] FDHRFYP1082-67-19 07:52:00 Test Item Value Reference Range Interpretation Comments ABO/Rh (test code = ABO/Rh) AB POS [facility] [employer] IRGJFNJ6728-63-09 07:52:00 Test Item Value Reference Range Interpretation Comments Antibody Scrn (test Negative (10/09/21 2:52 code = Antibody Scrn) AM) [place] 938802-03-28 07:52:00 Test Item Value Reference Range Interpretation Comments Glucose Lvl (test code = Glucose Lvl) 291 70-99 [place] 938802-03-28 07:52:00 Test Item Value Reference Range Interpretation Comments BUN (test code = BUN) 16 7-22 [place] 938802-03-28 07:52:00 Test Item Value Reference Range Interpretation Comments Creatinine Lvl (test code = Creatinine 0.83 0.50-1.40 Lvl) [place] 938802-03-28 07:52:00 Test Item Value Reference Range Interpretation Comments Sodium Lvl (test code = Sodium Lvl) 138 135-145 [place] 938802-03-28 07:52:00 Test Item Value Reference Range Interpretation Comments Potassium Lvl (test code = Potassium 4.7 3.5-5.1 Lvl) [place] 938802-03-28 07:52:00 Test Item Value Reference Range Interpretation Comments Chloride Lvl (test code = Chloride Lvl) 113 95-109 [place] 938802-03-28 07:52:00 Test Item Value Reference Range Interpretation Comments CO2 (test code = CO2) 18 24-32 [place] 938802-03-28 07:52:00 Test Item Value Reference Range Interpretation Comments AGAP (test code = AGAP) 11.7 10.0-20.0 [place] 938802-03-28 07:52:00 Test Item Value Reference Range Interpretation Comments Calcium Lvl (test code = Calcium Lvl) 9.4 8.5-10.5 [place] 938802-03-28 07:52:00 Test Item Value Reference Range Interpretation Comments eGFR (test code = eGFR) 113 [place] 752322-03-28 07:52:00 Test Item Value Reference Range Interpretation Comments WBC (test code = WBC) 5.5 3.7-10.4 [place] 752322-03-28 07:52:00 Test Item Value Reference Range Interpretation Comments RBC (test code = RBC) 5.53 4.70-6.10 [place] 752322-03-28 07:52:00 Test Item Value Reference Range Interpretation Comments Hgb (test code = Hgb) 16.3 14.0-18.0 [facility] OgplspvWMQQJBXSEV5877-90-71 07:52:00 Test Item Value Reference Range Interpretation Comments Hct (test code = Hct) 50.5 42.0-54.0 [facility]SC[facility]AMZ[facility]12[facility] 07:52:00 Test Item Value Reference Range Interpretation Comments MCV (test code = MCV) 91.3 80.0-94.0 [facility]XsmhqocAPHIAPPYPI3239-05-11 07:52:00 Test Item Value Reference Range Interpretation Comments MCH (test code = MCH) 29.5 pg 27.0-31.0 [facility] CenterWchfcvaCOWUJETJVB4246-21-59 07:52:00 Test Item Value Reference Range Interpretation Comments MCHC (test code = MCHC) 32.3 32.0-36.0 [facility] FbqlwqjOCMBCNWWSR9310-07-58 07:52:00 Test Item Value Reference Range Interpretation Comments RDW (test code = RDW) 15.4 11.5-14.5 [facility] CenterFqflbimAKQTTMLPGW7554-47-40 07:52:00 Test Item Value Reference Range Interpretation Comments Platelet (test code = Platelet) 210 133-450 [facility] CenterEelbotnRPKUBYYNMO6644-66-85 07:52:00 Test Item Value Reference Range Interpretation Comments MPV (test code = MPV) 9.3 7.4-10.4 [facility] [employer] [id number] 07:52:00 Test Item Value Reference Range Interpretation Comments ABO/Rh (test code = ABO/Rh) AB POS [facility] [employer] [id number] 07:52:00 Test Item Value Reference Range Interpretation Comments Antibody Scrn (test Negative (10/09/21 2:52 code = Antibody Scrn) AM) [facility] [employer] [id number] 07:52:00 Test Item Value Reference Range Interpretation Comments Glucose Lvl (test code = Glucose Lvl) 291 70-99 [facility] [employer] [id number] 07:52:00 Test Item Value Reference Range Interpretation Comments BUN (test code = BUN) 16 7- [facility] [employer] [id number] 07:52:00 Test Item Value Reference Range Interpretation Comments Creatinine Lvl (test code = Creatinine 0.83 0.50-1.40 Lvl) [place] 938802-03-28 07:52:00 Test Item Value Reference Range Interpretation Comments Sodium Lvl (test code = Sodium Lvl) 138 135-145 [place] 938802-03-28 07:52:00 Test Item Value Reference Range Interpretation Comments Potassium Lvl (test code = Potassium 4.7 3.5-5.1 Lvl) [place] 938802-03-28 07:52:00 Test Item Value Reference Range Interpretation Comments Chloride Lvl (test code = Chloride Lvl) 113 95-109 [place] 938802-03-28 07:52:00 Test Item Value Reference Range Interpretation Comments CO2 (test code = CO2) 18 24-32 [place] 938802-03-28 07:52:00 Test Item Value Reference Range Interpretation Comments AGAP (test code = AGAP) 11.7 10.0-20.0 [place] 938802-03-28 07:52:00 Test Item Value Reference Range Interpretation Comments Calcium Lvl (test code = Calcium Lvl) 9.4 8.5-10.5 [place] 938802-03-28 07:52:00 Test Item Value Reference Range Interpretation Comments eGFR (test code = eGFR) 113 [place] 752322-03-28 07:52:00 Test Item Value Reference Range Interpretation Comments WBC (test code = WBC) 5.5 3.7-10.4 [place] 752322-03-28 07:52:00 Test Item Value Reference Range Interpretation Comments RBC (test code = RBC) 5.53 4.70-6.10 [place] [address]-03-28 07:52:00 Test Item Value Reference Range Interpretation Comments Hgb (test code = Hgb) 16.3 14.0-18.0 [place] [address]-03-28 07:52:00 Test Item Value Reference Range Interpretation Comments Hct (test code = Hct) 50.5 42.0-54.0 [place] [address]-03-28 07:52:00 Test Item Value Reference Range Interpretation Comments MCV (test code = MCV) 91.3 80.0-94.0 [place] [address]-03-28 07:52:00 Test Item Value Reference Range Interpretation Comments MCH (test code = MCH) 29.5 pg 27.0-31.0 [facility] CenterOchrummZLZYSBQXOJ6512-57-08 07:52:00 Test Item Value Reference Range Interpretation Comments MCHC (test code = MCHC) 32.3 32.0-36.0 [facility]ZvjyxpwZQSNTJWZWN4584-56-82 07:52:00 Test Item Value Reference Range Interpretation Comments RDW (test code = RDW) 15.4 11.5-14.5 [facility] CenterWxnnsceLCYBDFCAHB5769-84-29 07:52:00 Test Item Value Reference Range Interpretation Comments Platelet (test code = Platelet) 210 133-450 [facility] CenterDuhvyaiBHMVMVGCKK1022-16-26 07:52:00 Test Item Value Reference Range Interpretation Comments MPV (test code = MPV) 9.3 7.4-10.4 [facility] [employer] [id number] 07:52:00 Test Item Value Reference Range Interpretation Comments ABO/Rh (test code = ABO/Rh) AB POS [facility] [employer] [id number] 07:52:00 Test Item Value Reference Range Interpretation Comments Antibody Scrn (test Negative (10/09/21 2:52 code = Antibody Scrn) AM) [facility] [id number] 07:52:00 Test Item Value Reference Range Interpretation Comments Glucose Lvl (test code = Glucose Lvl) 291 70-99 [facility] [id number] 07:52:00 Test Item Value Reference Range Interpretation Comments BUN (test code = BUN) 16 7-22 [facility] [id number] 07:52:00 Test Item Value Reference Range Interpretation Comments Creatinine Lvl (test code = Creatinine 0.83 0.50-1.40 Lvl) [facility] [id number] 07:52:00 Test Item Value Reference Range Interpretation Comments Sodium Lvl (test code = Sodium Lvl) 138 135-145 [facility] [id number] 07:52:00 Test Item Value Reference Range Interpretation Comments Potassium Lvl (test code = Potassium 4.7 3.5-5.1 Lvl) [facility] [id number] 07:52:00 Test Item Value Reference Range Interpretation Comments Chloride Lvl (test code = Chloride Lvl) 113 95-109 [place] 938802-03-28 07:52:00 Test Item Value Reference Range Interpretation Comments CO2 (test code = CO2) 18 24-32 [place] 938802-03-28 07:52:00 Test Item Value Reference Range Interpretation Comments AGAP (test code = AGAP) 11.7 10.0-20.0 [place] 938802-03-28 07:52:00 Test Item Value Reference Range Interpretation Comments Calcium Lvl (test code = Calcium Lvl) 9.4 8.5-10.5 [place] 938802-03-28 07:52:00 Test Item Value Reference Range Interpretation Comments eGFR (test code = eGFR) 113 [place] 752322-03-28 07:52:00 Test Item Value Reference Range Interpretation Comments WBC (test code = WBC) 5.5 3.7-10.4 [place] 752322-03-28 07:52:00 Test Item Value Reference Range Interpretation Comments RBC (test code = RBC) 5.53 4.70-6.10 [place] 752322-03-28 07:52:00 Test Item Value Reference Range Interpretation Comments Hgb (test code = Hgb) 16.3 14.0-18.0 [place] 752322-03-28 07:52:00 Test Item Value Reference Range Interpretation Comments Hct (test code = Hct) 50.5 42.0-54.0 [place] 752322-03-28 07:52:00 Test Item Value Reference Range Interpretation Comments MCV (test code = MCV) 91.3 80.0-94.0 [place] 752322-03-28 07:52:00 Test Item Value Reference Range Interpretation Comments MCH (test code = MCH) 29.5 pg 27.0-31.0 [place] 752322-03-28 07:52:00 Test Item Value Reference Range Interpretation Comments MCHC (test code = MCHC) 32.3 32.0-36.0 [place] 752322-03-28 07:52:00 Test Item Value Reference Range Interpretation Comments RDW (test code = RDW) 15.4 11.5-14.5 [place] 752322-03-28 07:52:00 Test Item Value Reference Range Interpretation Comments Platelet (test code = Platelet) 210 133-450 [place] 752322-03-28 07:52:00 Test Item Value Reference Range Interpretation Comments MPV (test code = MPV) 9.3 7.4-10.4 [place] 938802-03-27 10:12:00 Test Item Value Reference Range Interpretation Comments Glucose Lvl (test code = Glucose Lvl) 115 70-99 [place] 938802-03-27 10:12:00 Test Item Value Reference Range Interpretation Comments BUN (test code = BUN) 18 7-22 [place] 938802-03-27 10:12:00 Test Item Value Reference Range Interpretation Comments Creatinine Lvl (test code = Creatinine 0.78 0.50-1.40 Lvl) [place] 938802-03-27 10:12:00 Test Item Value Reference Range Interpretation Comments Sodium Lvl (test code = Sodium Lvl) 138 135-145 [place] 938802-03-27 10:12:00 Test Item Value Reference Range Interpretation Comments Potassium Lvl (test code = Potassium 4.6 3.5-5.1 Lvl) [place] 938802-03-27 10:12:00 Test Item Value Reference Range Interpretation Comments Chloride Lvl (test code = Chloride Lvl) 111 95-109 [place] 938802-03-27 10:12:00 Test Item Value Reference Range Interpretation Comments CO2 (test code = CO2) 21 24-32 [place] 938802-03-27 10:12:00 Test Item Value Reference Range Interpretation Comments AGAP (test code = AGAP) 10.6 10.0-20.0 [place] 938802-03-27 10:12:00 Test Item Value Reference Range Interpretation Comments Calcium Lvl (test code = Calcium Lvl) 8.6 8.5-10.5 [place] 938802-03-27 10:12:00 Test Item Value Reference Range Interpretation Comments eGFR (test code = eGFR) 116 [place] 752322-03-27 10:12:00 Test Item Value Reference Range Interpretation Comments WBC (test code = WBC) 8.2 3.7-10.4 [place] 752322-03-27 10:12:00 Test Item Value Reference Range Interpretation Comments RBC (test code = RBC) 5.14 4.70-6.10 [place] 752322-03-27 10:12:00 Test Item Value Reference Range Interpretation Comments Hgb (test code = Hgb) 15.5 14.0-18.0 [place] [address]-03-27 10:12:00 Test Item Value Reference Range Interpretation Comments Hct (test code = Hct) 46.0 42.0-54.0 [place] 752322-03-27 10:12:00 Test Item Value Reference Range Interpretation Comments MCV (test code = MCV) 89.5 80.0-94.0 [place] [address]-03-27 10:12:00 Test Item Value Reference Range Interpretation Comments MCH (test code = MCH) 30.2 pg 27.0-31.0 [place] 752322-03-27 10:12:00 Test Item Value Reference Range Interpretation Comments MCHC (test code = MCHC) 33.8 32.0-36.0 [place] 752322-03-27 10:12:00 Test Item Value Reference Range Interpretation Comments RDW (test code = RDW) 15.3 11.5-14.5 [facility]ZtvjsoxFSVUFCJKET8325-03-12 10:12:00 Test Item Value Reference Range Interpretation Comments Platelet (test code = Platelet) 358 133-450 [facility] CenterAggfbseHTOSJPEXTQ0756-34-98 10:12:00 Test Item Value Reference Range Interpretation Comments MPV (test code = MPV) 8.3 7.4-10.4 [facility]2022-03-27 10:12:00 Test Item Value Reference Range Interpretation Comments Glucose Lvl (test code = Glucose Lvl) 115 70-99 [facility]2022-03-27 10:12:00 Test Item Value Reference Range Interpretation Comments BUN (test code = BUN) 18 7-22 [facility]2022-03-27 10:12:00 Test Item Value Reference Range Interpretation Comments Creatinine Lvl (test code = Creatinine 0.78 0.50-1.40 Lvl) [facility]2022-03-27 10:12:00 Test Item Value Reference Range Interpretation Comments Sodium Lvl (test code = Sodium Lvl) 138 135-145 [place] 938802-03-27 10:12:00 Test Item Value Reference Range Interpretation Comments Potassium Lvl (test code = Potassium 4.6 3.5-5.1 Lvl) [place] 938802-03-27 10:12:00 Test Item Value Reference Range Interpretation Comments Chloride Lvl (test code = Chloride Lvl) 111 95-109 [place] 938802-03-27 10:12:00 Test Item Value Reference Range Interpretation Comments CO2 (test code = CO2) 21 24-32 [place] 938802-03-27 10:12:00 Test Item Value Reference Range Interpretation Comments AGAP (test code = AGAP) 10.6 10.0-20.0 [address]03-27 10:12:00 Test Item Value Reference Range Interpretation Comments Calcium Lvl (test code = Calcium Lvl) 8.6 8.5-10.5 [place] 938802-03-27 10:12:00 Test Item Value Reference Range Interpretation Comments eGFR (test code = eGFR) 116 [place] 752322-03-27 10:12:00 Test Item Value Reference Range Interpretation Comments WBC (test code = WBC) 8.2 3.7-10.4 [place] [address]-03-27 10:12:00 Test Item Value Reference Range Interpretation Comments RBC (test code = RBC) 5.14 4.70-6.10 [place] [address]-03-27 10:12:00 Test Item Value Reference Range Interpretation Comments Hgb (test code = Hgb) 15.5 14.0-18.0 [place] [address]-03-27 10:12:00 Test Item Value Reference Range Interpretation Comments Hct (test code = Hct) 46.0 42.0-54.0 [address]03-27 10:12:00 Test Item Value Reference Range Interpretation Comments MCV (test code = MCV) 89.5 80.0-94.0 [place] [address]-03-27 10:12:00 Test Item Value Reference Range Interpretation Comments MCH (test code = MCH) 30.2 pg 27.0-31.0 [place] [address]-03-27 10:12:00 Test Item Value Reference Range Interpretation Comments MCHC (test code = MCHC) 33.8 32.0-36.0 [place] [address]-03-27 10:12:00 Test Item Value Reference Range Interpretation Comments RDW (test code = RDW) 15.3 11.5-14.5 [place] 752322-03-27 10:12:00 Test Item Value Reference Range Interpretation Comments Platelet (test code = Platelet) 358 133-450 [place] 752322-03-27 10:12:00 Test Item Value Reference Range Interpretation Comments MPV (test code = MPV) 8.3 7.4-10.4 [place] 938802-03-27 10:12:00 Test Item Value Reference Range Interpretation Comments Glucose Lvl (test code = Glucose Lvl) 115 70-99 [place] 938802-03-27 10:12:00 Test Item Value Reference Range Interpretation Comments BUN (test code = BUN) 18 7-22 [place] 938802-03-27 10:12:00 Test Item Value Reference Range Interpretation Comments Creatinine Lvl (test code = Creatinine 0.78 0.50-1.40 Lvl) [facility]2022-03-27 10:12:00 Test Item Value Reference Range Interpretation Comments Sodium Lvl (test code = Sodium Lvl) 138 135-145 [place] 938802-03-27 10:12:00 Test Item Value Reference Range Interpretation Comments Potassium Lvl (test code = Potassium 4.6 3.5-5.1 Lvl) [place] 938802-03-27 10:12:00 Test Item Value Reference Range Interpretation Comments Chloride Lvl (test code = Chloride Lvl) 111 95-109 [place] 938802-03-27 10:12:00 Test Item Value Reference Range Interpretation Comments CO2 (test code = CO2) 21 24-32 [place] 938802-03-27 10:12:00 Test Item Value Reference Range Interpretation Comments AGAP (test code = AGAP) 10.6 10.0-20.0 [place] 938802-03-27 10:12:00 Test Item Value Reference Range Interpretation Comments Calcium Lvl (test code = Calcium Lvl) 8.6 8.5-10.5 [place] 938802-03-27 10:12:00 Test Item Value Reference Range Interpretation Comments eGFR (test code = eGFR) 116 [place] 752322-03-27 10:12:00 Test Item Value Reference Range Interpretation Comments WBC (test code = WBC) 8.2 3.7-10.4 [place] [address]-03-27 10:12:00 Test Item Value Reference Range Interpretation Comments RBC (test code = RBC) 5.14 4.70-6.10 [place] 752322-03-27 10:12:00 Test Item Value Reference Range Interpretation Comments Hgb (test code = Hgb) 15.5 14.0-18.0 [place] [address]-03-27 10:12:00 Test Item Value Reference Range Interpretation Comments Hct (test code = Hct) 46.0 42.0-54.0 [place] [address]-03-27 10:12:00 Test Item Value Reference Range Interpretation Comments MCV (test code = MCV) 89.5 80.0-94.0 [place] [address]-03-27 10:12:00 Test Item Value Reference Range Interpretation Comments MCH (test code = MCH) 30.2 pg 27.0-31.0 [place] [address]-03-27 10:12:00 Test Item Value Reference Range Interpretation Comments MCHC (test code = MCHC) 33.8 32.0-36.0 [place] [address]-03-27 10:12:00 Test Item Value Reference Range Interpretation Comments RDW (test code = RDW) 15.3 11.5-14.5 [place] 752322-03-27 10:12:00 Test Item Value Reference Range Interpretation Comments Platelet (test code = Platelet) 358 133-450 [place] [address]-03-27 10:12:00 Test Item Value Reference Range Interpretation Comments MPV (test code = MPV) 8.3 7.4-10.4 [facility]2022-03-27 10:12:00 Test Item Value Reference Range Interpretation Comments Glucose Lvl (test code = Glucose Lvl) 115 70-99 [facility]2022-03-27 10:12:00 Test Item Value Reference Range Interpretation Comments BUN (test code = BUN) 18 7-22 [place] 938802-03-27 10:12:00 Test Item Value Reference Range Interpretation Comments Creatinine Lvl (test code = Creatinine 0.78 0.50-1.40 Lvl) [place] 938802-03-27 10:12:00 Test Item Value Reference Range Interpretation Comments Sodium Lvl (test code = Sodium Lvl) 138 135-145 [place] 938802-03-27 10:12:00 Test Item Value Reference Range Interpretation Comments Potassium Lvl (test code = Potassium 4.6 3.5-5.1 Lvl) [place] 938802-03-27 10:12:00 Test Item Value Reference Range Interpretation Comments Chloride Lvl (test code = Chloride Lvl) 111 95-109 [place] 938802-03-27 10:12:00 Test Item Value Reference Range Interpretation Comments CO2 (test code = CO2) 21 24-32 [place] 938802-03-27 10:12:00 Test Item Value Reference Range Interpretation Comments AGAP (test code = AGAP) 10.6 10.0-20.0 [place] 938802-03-27 10:12:00 Test Item Value Reference Range Interpretation Comments Calcium Lvl (test code = Calcium Lvl) 8.6 8.5-10.5 [place] 938802-03-27 10:12:00 Test Item Value Reference Range Interpretation Comments eGFR (test code = eGFR) 116 [place] 752322-03-27 10:12:00 Test Item Value Reference Range Interpretation Comments WBC (test code = WBC) 8.2 3.7-10.4 [place] [address]-03-27 10:12:00 Test Item Value Reference Range Interpretation Comments RBC (test code = RBC) 5.14 4.70-6.10 [place] [address]-03-27 10:12:00 Test Item Value Reference Range Interpretation Comments Hgb (test code = Hgb) 15.5 14.0-18.0 [place] [address]-03-27 10:12:00 Test Item Value Reference Range Interpretation Comments Hct (test code = Hct) 46.0 42.0-54.0 [place] [address]-03-27 10:12:00 Test Item Value Reference Range Interpretation Comments MCV (test code = MCV) 89.5 80.0-94.0 [place] [address]-03-27 10:12:00 Test Item Value Reference Range Interpretation Comments MCH (test code = MCH) 30.2 pg 27.0-31.0 [place] 752322-03-27 10:12:00 Test Item Value Reference Range Interpretation Comments MCHC (test code = MCHC) 33.8 32.0-36.0 [place] 752322-03-27 10:12:00 Test Item Value Reference Range Interpretation Comments RDW (test code = RDW) 15.3 11.5-14.5 [place] [address]-03-27 10:12:00 Test Item Value Reference Range Interpretation Comments Platelet (test code = Platelet) 358 133-450 [place] [address]-03-27 10:12:00 Test Item Value Reference Range Interpretation Comments MPV (test code = MPV) 8.3 7.4-10.4 [place] 938802-03-27 06:53:00 Test Item Value Reference Range Interpretation Comments Glucose Lvl (test code = Glucose Lvl) 167 70-99 [place] 938802-03-27 06:53:00 Test Item Value Reference Range Interpretation Comments BUN (test code = BUN) 16 7-22 [place] 938802-03-27 06:53:00 Test Item Value Reference Range Interpretation Comments Creatinine Lvl (test code = Creatinine 0.99 0.50-1.40 Lvl) [place] 938802-03-27 06:53:00 Test Item Value Reference Range Interpretation Comments Sodium Lvl (test code = Sodium Lvl) 141 135-145 [place] 938802-03-27 06:53:00 Test Item Value Reference Range Interpretation Comments Potassium Lvl (test code = Potassium 4.5 3.5-5.1 Lvl) [place] 938802-03-27 06:53:00 Test Item Value Reference Range Interpretation Comments Chloride Lvl (test code = Chloride Lvl) 111 95-109 [place] 938802-03-27 06:53:00 Test Item Value Reference Range Interpretation Comments CO2 (test code = CO2) 22 24-32 [place] 938802-03-27 06:53:00 Test Item Value Reference Range Interpretation Comments AGAP (test code = AGAP) 12.5 10.0-20.0 [place] 938802-03-27 06:53:00 Test Item Value Reference Range Interpretation Comments Calcium Lvl (test code = Calcium Lvl) 8.6 8.5-10.5 [place] 938802-03-27 06:53:00 Test Item Value Reference Range Interpretation Comments eGFR (test code = eGFR) 98 [place] 938802-03-27 06:53:00 Test Item Value Reference Range Interpretation Comments Glucose Lvl (test code = Glucose Lvl) 167 70-99 [place] 938802-03-27 06:53:00 Test Item Value Reference Range Interpretation Comments BUN (test code = BUN) 16 7-22 [place] 938802-03-27 06:53:00 Test Item Value Reference Range Interpretation Comments Creatinine Lvl (test code = Creatinine 0.99 0.50-1.40 Lvl) [place] 938802-03-27 06:53:00 Test Item Value Reference Range Interpretation Comments Sodium Lvl (test code = Sodium Lvl) 141 135-145 [place] 938802-03-27 06:53:00 Test Item Value Reference Range Interpretation Comments Potassium Lvl (test code = Potassium 4.5 3.5-5.1 Lvl) [facility]2022-03-27 06:53:00 Test Item Value Reference Range Interpretation Comments Chloride Lvl (test code = Chloride Lvl) 111 95-109 [place] 938802-03-27 06:53:00 Test Item Value Reference Range Interpretation Comments CO2 (test code = CO2) 22 24-32 [place] 938802-03-27 06:53:00 Test Item Value Reference Range Interpretation Comments AGAP (test code = AGAP) 12.5 10.0-20.0 [place] 938802-03-27 06:53:00 Test Item Value Reference Range Interpretation Comments Calcium Lvl (test code = Calcium Lvl) 8.6 8.5-10.5 [place] 938802-03-27 06:53:00 Test Item Value Reference Range Interpretation Comments eGFR (test code = eGFR) 98 [place] 938802-03-27 06:53:00 Test Item Value Reference Range Interpretation Comments Glucose Lvl (test code = Glucose Lvl) 167 70-99 [place] 938802-03-27 06:53:00 Test Item Value Reference Range Interpretation Comments BUN (test code = BUN) 16 02-02 [place] 938802-03-27 06:53:00 Test Item Value Reference Range Interpretation Comments Creatinine Lvl (test code = Creatinine 0.99 0.50-1.40 Lvl) [facility]2022-03-27 06:53:00 Test Item Value Reference Range Interpretation Comments Sodium Lvl (test code = Sodium Lvl) 141 135-145 [place] 938802-03-27 06:53:00 Test Item Value Reference Range Interpretation Comments Potassium Lvl (test code = Potassium 4.5 3.5-5.1 Lvl) [place] 938802-03-27 06:53:00 Test Item Value Reference Range Interpretation Comments Chloride Lvl (test code = Chloride Lvl) 111 95-109 [facility]2022-03-27 06:53:00 Test Item Value Reference Range Interpretation Comments CO2 (test code = CO2) 24-32 [facility]2022-03-27 06:53:00 Test Item Value Reference Range Interpretation Comments AGAP (test code = AGAP) 12.5 10.0-20.0 [facility]2022-03-27 06:53:00 Test Item Value Reference Range Interpretation Comments Calcium Lvl (test code = Calcium Lvl) 8.6 8.5-10.5 [facility]2022-03-27 06:53:00 Test Item Value Reference Range Interpretation Comments eGFR (test code = eGFR) 98 [place] [id number] 06:53:00 Test Item Value Reference Range Interpretation Comments Glucose Lvl (test code = Glucose Lvl) 167 70-99 [facility]2022-03-27 06:53:00 Test Item Value Reference Range Interpretation Comments BUN (test code = BUN) 16 02-02 [place] 938802-03-27 06:53:00 Test Item Value Reference Range Interpretation Comments Creatinine Lvl (test code = Creatinine 0.99 0.50-1.40 Lvl) [place] 938802-03-27 06:53:00 Test Item Value Reference Range Interpretation Comments Sodium Lvl (test code = Sodium Lvl) 141 135-145 [facility] [id number] 06:53:00 Test Item Value Reference Range Interpretation Comments Potassium Lvl (test code = Potassium 4.5 3.5-5.1 Lvl) [facility] [id number] 06:53:00 Test Item Value Reference Range Interpretation Comments Chloride Lvl (test code = Chloride Lvl) 111 95-109 [facility] [id number] 06:53:00 Test Item Value Reference Range Interpretation Comments CO2 (test code = CO2) 22 24-32 [facility] [id number] 06:53:00 Test Item Value Reference Range Interpretation Comments AGAP (test code = AGAP) 12.5 10.0-20.0 [facility] [id number] 06:53:00 Test Item Value Reference Range Interpretation Comments Calcium Lvl (test code = Calcium Lvl) 8.6 8.5-10.5 [facility] [id number] 06:53:00 Test Item Value Reference Range Interpretation Comments eGFR (test code = eGFR) 98 [facility]annNITROF[facility]ANT[facility]IN[facility]SUSC:PT:ISOLATE:ORDQN:[id number] 22:59:00 Test Item Value Reference Range Interpretation Comments Culture: Urine (test >100,000 CFU/mL Proteus code = Culture: mirabilis >100,000 CFU/mL Urine) Providencia stuartii [facility]SUSC:PT:ISOLATE:ORDQN:[id number] 22:59:00 Test Item Value Reference Range Interpretation Comments Providencia stuartii Providencia stuartii (test code = Providencia stuartii) [facility]SUSC:PT:ISOLATE:ORDQN:[id number] 22:59:00 Test Item Value Reference Range Interpretation Comments Proteus mirabilis (test Proteus mirabilis code = Proteus mirabilis) [facility]: [id number] 22:59:00 Test Item Value Reference Range Interpretation Comments Culture: Urine (test Holding For Better code = Culture: Urine) [facility]:PT:ISOLATE:ORDQN:[id number] 22:59:00 Test Item Value Reference Range Interpretation Comments Culture: Urine (test >100,000 CFU/mL Proteus code = Culture: mirabilis >100,000 CFU/mL Urine) Providencia stuartii [facility]USC:PT:ISOLATE:ORDQN:[id number] 22:59:00 Test Item Value Reference Range Interpretation Comments Providencia stuartii Providencia stuartii (test code = Providencia stuartii) [facility]USC:PT:ISOLATE:ORDQN:[id number] 22:59:00 Test Item Value Reference Range Interpretation Comments Proteus mirabilis (test Proteus mirabilis code = Proteus mirabilis) [facility]: [id number] 22:59:00 Test Item Value Reference Range Interpretation Comments Culture: Urine (test Holding For Better code = Culture: Urine) Growth [facility]SUSC:PT:ISOLATE:ORDQN:[id number] 22:59:00 Test Item Value Reference Range Interpretation Comments Culture: Urine (test >100,000 CFU/mL Proteus code = Culture: mirabilis >100,000 CFU/mL Urine) Providencia stuartii [facility]SUSC:PT:ISOLATE:ORDQN:[id number] 22:59:00 Test Item Value Reference Range Interpretation Comments Providencia stuartii Providencia stuartii (test code = Providencia stuartii) [facility]USC:PT:ISOLATE:ORDQN:[id number] 22:59:00 Test Item Value Reference Range Interpretation Comments Proteus mirabilis (test Proteus mirabilis code = Proteus mirabilis) [facility]ann[facility]: [id number] 22:59:00 Test Item Value Reference Range Interpretation Comments Culture: Urine (test Holding For Better code = Culture: Urine) Growth [facility]SUSC:PT:ISOLATE:ORDQN:[id number] 22:59:00 Test Item Value Reference Range Interpretation Comments Culture: Urine (test >100,000 CFU/mL Proteus code = Culture: mirabilis >100,000 CFU/mL Urine) Providencia stuartii [facility]annNITR[facility]IN:SUSC:PT:ISOLATE:ORDQN:[id number] 22:59:00 Test Item Value Reference Range Interpretation Comments Providencia stuartii Providencia stuartii (test code = Providencia stuartii) [facility]SUSC:PT:ISOLATE:ORDQN:[id number] 22:59:00 Test Item Value Reference Range Interpretation Comments Proteus mirabilis (test Proteus mirabilis code = Proteus mirabilis) [facility] Center[facility] [id number] 22:59:00 Test Item Value Reference Range Interpretation Comments Culture: Urine (test Holding For Better code = Culture: Urine) Growth [facility] CenterABA English [id number] 21:03:00 Test Item Value Reference Range Interpretation Comments Glucose Lvl (test code = Glucose Lvl) 126 70-99 [facility] [id number] 21:03:00 Test Item Value Reference Range Interpretation Comments BUN (test code = BUN) 16 7-22 [facility] [id number] 21:03:00 Test Item Value Reference Range Interpretation Comments Creatinine Lvl (test code = Creatinine 0.76 0.50-1.40 Lvl) [facility] [id number] 21:03:00 Test Item Value Reference Range Interpretation Comments Sodium Lvl (test code = Sodium Lvl) 140 135-145 [facility] [id number] 21:03:00 Test Item Value Reference Range Interpretation Comments Potassium Lvl (test code = Potassium 3.3 3.5-5.1 Lvl) [facility] [id number] 21:03:00 Test Item Value Reference Range Interpretation Comments Chloride Lvl (test code = Chloride Lvl) 111 95-109 [facility] [id number] 21:03:00 Test Item Value Reference Range Interpretation Comments CO2 (test code = CO2) 22 24-32 [place] 938802-03-26 21:03:00 Test Item Value Reference Range Interpretation Comments Calcium Lvl (test code = Calcium Lvl) 8.5 8.5-10.5 [place] 938802-03-26 21:03:00 Test Item Value Reference Range Interpretation Comments AGAP (test code = AGAP) 10.3 10.0-20.0 [place] 938802-03-26 21:03:00 Test Item Value Reference Range Interpretation Comments eGFR (test code = eGFR) 117 [place] 938802-03-26 21:03:00 Test Item Value Reference Range Interpretation Comments Lactic Acid Lvl (test code = Lactic 1.1 0.5-2.2 Acid Lvl) [place] 752322-03-26 21:03:00 Test Item Value Reference Range Interpretation Comments Segs (test code = Segs) 68.9 45.0-75.0 [place] 752322-03-26 21:03:00 Test Item Value Reference Range Interpretation Comments Lymphocytes (test code = Lymphocytes) 20.4 20.0-40.0 [place] 752322-03-26 21:03:00 Test Item Value Reference Range Interpretation Comments Monocytes (test code = Monocytes) 8.2 2.0-12.0 [place] [address]-03-26 21:03:00 Test Item Value Reference Range Interpretation Comments Eosinophils (test code = 2.2 See_Comment [A utomated message] The Eosinophils) system which ge nerated this result tra nsmitted reference range : <=4.0. The reference r boubacar was not used to int erpret this result as normal/abnormal . [place] 752322-03-26 21:03:00 Test Item Value Reference Range Interpretation Comments Basophils (test code = 0.3 See_Comment [Aut omated message] The Basophils) system which ge nerated this result tra nsmitted reference range : <=1.0. The reference r boubacar was not used to int erpret this result as normal/abnormal . [place] 752322-03-26 21:03:00 Test Item Value Reference Range Interpretation Comments Neutrophils # (test code = Neutrophils 5.5 1.5-8.1 #) [place] 752322-03-26 21:03:00 Test Item Value Reference Range Interpretation Comments Lymphocytes # (test code = Lymphocytes 1.6 1.0-5.5 #) [place] 752322-03-26 21:03:00 Test Item Value Reference Range Interpretation Comments Monocytes # (test code 0.7 See_Comment [Aut omated message] The = Monocytes #) system which generated this result tra nsmitted reference range : <=0.8. The reference r boubacar was not used to int erpret this result as normal/abnormal . [place] 752322-03-26 21:03:00 Test Item Value Reference Range Interpretation Comments Eosinophils # (test code 0.2 See_Comment [A utomated message] The = Eosinophils #) system whic h generated this result tra nsmitted reference range : <=0.5. The reference r boubacar was not used to int erpret this result as normal/abnormal . [facility] [id number] 21:03:00 Test Item Value Reference Range Interpretation Comments WBC (test code = WBC) 8.0 3.7-10.4 [place] 752322-03-26 21:03:00 Test Item Value Reference Range Interpretation Comments RBC (test code = RBC) 5.37 4.70-6.10 [place] [address]-03-26 21:03:00 Test Item Value Reference Range Interpretation Comments Hgb (test code = Hgb) 15.9 14.0-18.0 [place] 752322-03-26 21:03:00 Test Item Value Reference Range Interpretation Comments Hct (test code = Hct) 47.3 42.0-54.0 [place] [address]-03-26 21:03:00 Test Item Value Reference Range Interpretation Comments MCV (test code = MCV) 88.1 80.0-94.0 [place] 752322-03-26 21:03:00 Test Item Value Reference Range Interpretation Comments MCH (test code = MCH) 29.6 pg 27.0-31.0 [place] 752322-03-26 21:03:00 Test Item Value Reference Range Interpretation Comments MCHC (test code = MCHC) 33.6 32.0-36.0 [place] 752322-03-26 21:03:00 Test Item Value Reference Range Interpretation Comments RDW (test code = RDW) 15.3 11.5-14.5 [facility] [id number] 21:03:00 Test Item Value Reference Range Interpretation Comments Platelet (test code = Platelet) 370 133-450 [facility] CenterLxmbglaMOFALWUQUQ7992-93-00 21:03:00 Test Item Value Reference Range Interpretation Comments MPV (test code = MPV) 8.1 7.4-10.4 [facility] AND [id number] 21:03:00 Test Item Value Reference Range Interpretation Comments UA Comment 1 (test Suboptimal specimen code = UA Comment 1) received. Results may be inaccurate due to the age of the specimen. Interpret results with caution. [facility] AND [id number] 21:03:00 Test Item Value Reference Range Interpretation Comments UA Color (test code = Yellow *NA*(10/07/21 UA Color) 4:03 PM) [facility] AND [id number] 21:03:00 Test Item Value Reference Range Interpretation Comments UA Turbidity (test code Slight *ABN*(10/07/21 = UA Turbidity) 4:03 PM) [facility] AND [id number] 21:03:00 Test Item Value Reference Range Interpretation Comments UA Spec Grav (test code = UA Spec 1.015 1 Grav) [facility] AND [id number] 21:03:00 Test Item Value Reference Range Interpretation Comments UA pH (test code = UA pH) 5.0 1 5.0-8.0 [facility] AND [id number] 21:03:00 Test Item Value Reference Range Interpretation Comments UA Protein (test code = UA Negative mg/dL Protein) [facility] AND [id number] 21:03:00 Test Item Value Reference Range Interpretation Comments UA Glucose (test code = UA Negative mg/dL Glucose) [facility] AND [id number] 21:03:00 Test Item Value Reference Range Interpretation Comments UA Ketones (test code = UA Negative mg/dL Ketones) [facility] AND [id number] 21:03:00 Test Item Value Reference Range Interpretation Comments UA Bili (test code = Negative *NA*(10/07/21 UA Bili) 4:03 PM) [facility] [id number] 21:03:00 Test Item Value Reference Range Interpretation Comments UA Blood (test code = Negative (10/07/21 4:03 UA Blood) PM) [facility] [id number] 21:03:00 Test Item Value Reference Range Interpretation Comments UA Urobilinogen (test code = UA no gt 0.1-1.0 Urobilinogen) [facility] [id number] 21:03:00 Test Item Value Reference Range Interpretation Comments UA Nitrite (test code Negative (10/07/21 4:03 = UA Nitrite) PM) [facility] [id number] 21:03:00 Test Item Value Reference Range Interpretation Comments UA Leuk Est (test code Large *ABN*(10/07/21 = UA Leuk Est) 4:03 PM) [facility] [id number] 21:03:00 Test Item Value Reference Range Interpretation Comments UA WBC (test code = 64 See_Comment [Automa lester message] The UA WBC) system which ge nerated this result transmit lester reference range : <=5. The reference range was not used to interpr et this result as dany l/abnormal. [facility] [id number] 21:03:00 Test Item Value Reference Range Interpretation Comments UA RBC (test code = 2 See_Comment [Automa lester message] The UA RBC) system which ge nerated this result transmit lester reference range : <=2. The reference range was not used to interpr et this result as dany l/abnormal. [facility] [id number] 21:03:00 Test Item Value Reference Range Interpretation Comments UA Mucus (test code = UA Mucus) Few /LPF [facility] [id number] 21:03:00 Test Item Value Reference Range Interpretation Comments UA Sq Epi (test code = UA Sq Epi) None [facility] [id number] 21:03:00 Test Item Value Reference Range Interpretation Comments Glucose Lvl (test code = Glucose Lvl) 126 70-99 [facility] [id number] 21:03:00 Test Item Value Reference Range Interpretation Comments BUN (test code = BUN) 16 7-22 [place] 938802-03-26 21:03:00 Test Item Value Reference Range Interpretation Comments Creatinine Lvl (test code = Creatinine 0.76 0.50-1.40 Lvl) [place] 938802-03-26 21:03:00 Test Item Value Reference Range Interpretation Comments Sodium Lvl (test code = Sodium Lvl) 140 135-145 [place] 938802-03-26 21:03:00 Test Item Value Reference Range Interpretation Comments Potassium Lvl (test code = Potassium 3.3 3.5-5.1 Lvl) [place] 938802-03-26 21:03:00 Test Item Value Reference Range Interpretation Comments Chloride Lvl (test code = Chloride Lvl) 111 95-109 [place] 938802-03-26 21:03:00 Test Item Value Reference Range Interpretation Comments CO2 (test code = CO2) 22 24-32 [place] 938802-03-26 21:03:00 Test Item Value Reference Range Interpretation Comments Calcium Lvl (test code = Calcium Lvl) 8.5 8.5-10.5 [place] 938802-03-26 21:03:00 Test Item Value Reference Range Interpretation Comments AGAP (test code = AGAP) 10.3 10.0-20.0 [place] 938802-03-26 21:03:00 Test Item Value Reference Range Interpretation Comments eGFR (test code = eGFR) 117 [place] 938802-03-26 21:03:00 Test Item Value Reference Range Interpretation Comments Lactic Acid Lvl (test code = Lactic 1.1 0.5-2.2 Acid Lvl) [place] 752322-03-26 21:03:00 Test Item Value Reference Range Interpretation Comments Segs (test code = Segs) 68.9 45.0-75.0 [place] 752322-03-26 21:03:00 Test Item Value Reference Range Interpretation Comments Lymphocytes (test code = Lymphocytes) 20.4 20.0-40.0 [place] [address]-03-26 21:03:00 Test Item Value Reference Range Interpretation Comments Monocytes (test code = Monocytes) 8.2 2.0-12.0 [place] 752322-03-26 21:03:00 Test Item Value Reference Range Interpretation Comments Eosinophils (test code = 2.2 See_Comment [A utomated message] The Eosinophils) system which ge nerated this result tra nsmitted reference range : <=4.0. The reference r boubacar was not used to int erpret this result as normal/abnormal . [place] 752322-03-26 21:03:00 Test Item Value Reference Range Interpretation Comments Basophils (test code = 0.3 See_Comment [Aut omated message] The Basophils) system which ge nerated this result tra nsmitted reference range : <=1.0. The reference r boubacar was not used to int erpret this result as normal/abnormal . [place] 752322-03-26 21:03:00 Test Item Value Reference Range Interpretation Comments Neutrophils # (test code = Neutrophils 5.5 1.5-8.1 #) [place] 752322-03-26 21:03:00 Test Item Value Reference Range Interpretation Comments Lymphocytes # (test code = Lymphocytes 1.6 1.0-5.5 #) [place] 752322-03-26 21:03:00 Test Item Value Reference Range Interpretation Comments Monocytes # (test code 0.7 See_Comment [Aut omated message] The = Monocytes #) system which generated this result tra nsmitted reference range : <=0.8. The reference r boubacar was not used to int erpret this result as normal/abnormal . [place] 752322-03-26 21:03:00 Test Item Value Reference Range Interpretation Comments Eosinophils # (test code 0.2 See_Comment [A utomated message] The = Eosinophils #) system whic h generated this result tra nsmitted reference range : <=0.5. The reference r boubacar was not used to int erpret this result as normal/abnormal . [facility] CenterMcevdgpDUXBOHRTOJ9340-76-14 21:03:00 Test Item Value Reference Range Interpretation Comments WBC (test code = WBC) 8.0 3.7-10.4 [place] 752322-03-26 21:03:00 Test Item Value Reference Range Interpretation Comments RBC (test code = RBC) 5.37 4.70-6.10 [place] 752322-03-26 21:03:00 Test Item Value Reference Range Interpretation Comments Hgb (test code = Hgb) 15.9 14.0-18.0 [facility] [id number] 21:03:00 Test Item Value Reference Range Interpretation Comments Hct (test code = Hct) 47.3 42.0-54.0 [facility] CenterAsszwlfNFAQLELHAS1418-73-24 21:03:00 Test Item Value Reference Range Interpretation Comments MCV (test code = MCV) 88.1 80.0-94.0 [facility] CenterRzymeojRUSSQOEBWO2725-01-27 21:03:00 Test Item Value Reference Range Interpretation Comments MCH (test code = MCH) 29.6 pg 27.0-31.0 [facility] [id number] 21:03:00 Test Item Value Reference Range Interpretation Comments MCHC (test code = MCHC) 33.6 32.0-36.0 [facility] CenterDwvniecRRPZYJPKHR2769-42-38 21:03:00 Test Item Value Reference Range Interpretation Comments RDW (test code = RDW) 15.3 11.5-14.5 [facility] CenterQwmlxycXLRFZUIOMY9040-76-42 21:03:00 Test Item Value Reference Range Interpretation Comments Platelet (test code = Platelet) 370 133-450 [facility] CenterXgktvbrTVUIDPIMVB3749-83-05 21:03:00 Test Item Value Reference Range Interpretation Comments MPV (test code = MPV) 8.1 7.4-10.4 [facility] AND [id number] 21:03:00 Test Item Value Reference Range Interpretation Comments UA Comment 1 (test Suboptimal specimen code = UA Comment 1) received. Results may be inaccurate due to the age of the specimen. Interpret results with caution. [facility] [id number] 21:03:00 Test Item Value Reference Range Interpretation Comments UA Color (test code = Yellow *NA*(10/07/21 UA Color) 4:03 PM) [facility] [id number] 21:03:00 Test Item Value Reference Range Interpretation Comments UA Turbidity (test code Slight *ABN*(10/07/21 = UA Turbidity) 4:03 PM) [facility] AND [id number] 21:03:00 Test Item Value Reference Range Interpretation Comments UA Spec Grav (test code = UA Spec 1.015 1 Grav) [facility] AND [id number] 21:03:00 Test Item Value Reference Range Interpretation Comments UA pH (test code = UA pH) 5.0 1 5.0-8.0 [facility] AND [id number] 21:03:00 Test Item Value Reference Range Interpretation Comments UA Protein (test code = UA Negative mg/dL Protein) [facility] AND [id number] 21:03:00 Test Item Value Reference Range Interpretation Comments UA Glucose (test code = UA Negative mg/dL Glucose) [facility] AND [id number] 21:03:00 Test Item Value Reference Range Interpretation Comments UA Ketones (test code = UA Negative mg/dL Ketones) [facility] AND [id number] 21:03:00 Test Item Value Reference Range Interpretation Comments UA Bili (test code = Negative *NA*(10/07/21 UA Bili) 4:03 PM) [facility] AND [id number] 21:03:00 Test Item Value Reference Range Interpretation Comments UA Blood (test code = Negative (10/07/21 4:03 UA Blood) PM) [facility] AND [id number] 21:03:00 Test Item Value Reference Range Interpretation Comments UA Urobilinogen (test code = UA no gt 0.1-1.0 Urobilinogen) [facility] AND [id number] 21:03:00 Test Item Value Reference Range Interpretation Comments UA Nitrite (test code Negative (10/07/21 4:03 = UA Nitrite) PM) [facility] AND [id number] 21:03:00 Test Item Value Reference Range Interpretation Comments UA Leuk Est (test code Large *ABN*(10/07/21 = UA Leuk Est) 4:03 PM) [facility] AND [id number] 21:03:00 Test Item Value Reference Range Interpretation Comments UA WBC (test code = 64 See_Comment [Automa lester message] The UA WBC) system which ge nerated this result transmit lester reference range : <=5. The reference range was not used to interpr et this result as dany l/abnormal. [facility] AND [id number] 21:03:00 Test Item Value Reference Range Interpretation Comments UA RBC (test code = 2 See_Comment [Automa lester message] The UA RBC) system which ge nerated this result transmit lester reference range : <=2. The reference range was not used to interpr et this result as dany l/abnormal. [facility] AND [id number] 21:03:00 Test Item Value Reference Range Interpretation Comments UA Mucus (test code = UA Mucus) Few /LPF [facility] AND [id number] 21:03:00 Test Item Value Reference Range Interpretation Comments UA Sq Epi (test code = UA Sq Epi) None Seen [facility]2022-03-26 21:03:00 Test Item Value Reference Range Interpretation Comments Glucose Lvl (test code = Glucose Lvl) 126 70-99 [place] 938802-03-26 21:03:00 Test Item Value Reference Range Interpretation Comments BUN (test code = BUN) 16 7-22 [place] 938802-03-26 21:03:00 Test Item Value Reference Range Interpretation Comments Creatinine Lvl (test code = Creatinine 0.76 0.50-1.40 Lvl) [facility]2022-03-26 21:03:00 Test Item Value Reference Range Interpretation Comments Sodium Lvl (test code = Sodium Lvl) 140 135-145 [place] 938802-03-26 21:03:00 Test Item Value Reference Range Interpretation Comments Potassium Lvl (test code = Potassium 3.3 3.5-5.1 Lvl) [facility]2022-03-26 21:03:00 Test Item Value Reference Range Interpretation Comments Chloride Lvl (test code = Chloride Lvl) 111 95-109 [place] 938802-03-26 21:03:00 Test Item Value Reference Range Interpretation Comments CO2 (test code = CO2) 22 24-32 [place] 938802-03-26 21:03:00 Test Item Value Reference Range Interpretation Comments Calcium Lvl (test code = Calcium Lvl) 8.5 8.5-10.5 [facility]2022-03-26 21:03:00 Test Item Value Reference Range Interpretation Comments AGAP (test code = AGAP) 10.3 10.0-20.0 [place] 938802-03-26 21:03:00 Test Item Value Reference Range Interpretation Comments eGFR (test code = eGFR) 117 [facility]2022-03-26 21:03:00 Test Item Value Reference Range Interpretation Comments Lactic Acid Lvl (test code = Lactic 1.1 0.5-2.2 Acid Lvl) [facility] [id number] 21:03:00 Test Item Value Reference Range Interpretation Comments Segs (test code = Segs) 68.9 45.0-75.0 [place] 752322-03-26 21:03:00 Test Item Value Reference Range Interpretation Comments Lymphocytes (test code = Lymphocytes) 20.4 20.0-40.0 [place] 752322-03-26 21:03:00 Test Item Value Reference Range Interpretation Comments Monocytes (test code = Monocytes) 8.2 2.0-12.0 [place] 752322-03-26 21:03:00 Test Item Value Reference Range Interpretation Comments Eosinophils (test code = 2.2 See_Comment [A utomated message] The Eosinophils) system which ge nerated this result tra nsmitted reference range : <=4.0. The reference r boubacar was not used to int erpret this result as normal/abnormal . [id number] 21:03:00 Test Item Value Reference Range Interpretation Comments Basophils (test code = 0.3 See_Comment [Aut omated message] The Basophils) system which ge nerated this result tra nsmitted reference range : <=1.0. The reference r boubacar was not used to int erpret this result as normal/abnormal . [place] 752322-03-26 21:03:00 Test Item Value Reference Range Interpretation Comments Neutrophils # (test code = Neutrophils 5.5 1.5-8.1 #) [place] [address]-03-26 21:03:00 Test Item Value Reference Range Interpretation Comments Lymphocytes # (test code = Lymphocytes 1.6 1.0-5.5 #) [place] [address]-03-26 21:03:00 Test Item Value Reference Range Interpretation Comments Monocytes # (test code 0.7 See_Comment [Aut omated message] The = Monocytes #) system which generated this result tra nsmitted reference range : <=0.8. The reference r boubacar was not used to int erpret this result as normal/abnormal . [facility] CenterYwfemrwHNMCQOQGOU1753-17-40 21:03:00 Test Item Value Reference Range Interpretation Comments Eosinophils # (test code 0.2 See_Comment [A utomated message] The = Eosinophils #) system whic h generated this result tra nsmitted reference range : <=0.5. The reference r boubacar was not used to int erpret this result as normal/abnormal . [facility] CenterOctchloCGAMSWTOLC9156-43-92 21:03:00 Test Item Value Reference Range Interpretation Comments WBC (test code = WBC) 8.0 3.7-10.4 [facility] CenterXqqeqqrQLYVQPZBQV9499-05-61 21:03:00 Test Item Value Reference Range Interpretation Comments RBC (test code = RBC) 5.37 4.70-6.10 [facility] CenterWtdxmhnSHOIMULDUD6547-02-76 21:03:00 Test Item Value Reference Range Interpretation Comments Hgb (test code = Hgb) 15.9 14.0-18.0 [facility] CenterIrcjsthKUQWQKREVS0932-56-47 21:03:00 Test Item Value Reference Range Interpretation Comments Hct (test code = Hct) 47.3 42.0-54.0 [facility] CenterNdzzzsbXGTXJMIDFO5688-99-78 21:03:00 Test Item Value Reference Range Interpretation Comments MCV (test code = MCV) 88.1 80.0-94.0 [facility] CenterBotpxqtVMYTQLVBZJ4682-65-32 21:03:00 Test Item Value Reference Range Interpretation Comments MCH (test code = MCH) 29.6 pg 27.0-31.0 [facility] CenterAviyqwiHODHKVKWVJ6591-98-61 21:03:00 Test Item Value Reference Range Interpretation Comments MCHC (test code = MCHC) 33.6 32.0-36.0 [facility] CenterUhpztcuWAFCYZUQAM7829-56-96 21:03:00 Test Item Value Reference Range Interpretation Comments RDW (test code = RDW) 15.3 11.5-14.5 [facility] CenterQkkgyhbCKDYIVFKGW3486-44-75 21:03:00 Test Item Value Reference Range Interpretation Comments Platelet (test code = Platelet) 370 133-450 [facility] CenterJmyxmdrYUIAWQPBNQ6940-09-74 21:03:00 Test Item Value Reference Range Interpretation Comments MPV (test code = MPV) 8.1 7.4-10.4 [facility]2022-03-26 21:03:00 Test Item Value Reference Range Interpretation Comments UA Comment 1 (test Suboptimal specimen code = UA Comment 1) received. Results may be inaccurate due to the age of the specimen. Interpret results with caution. [facility] AND [id number] 21:03:00 Test Item Value Reference Range Interpretation Comments UA Color (test code = Yellow *NA*(10/07/21 UA Color) 4:03 PM) [facility] AND [id number] 21:03:00 Test Item Value Reference Range Interpretation Comments UA Turbidity (test code Slight *ABN*(10/07/21 = UA Turbidity) 4:03 PM) [facility] AND [id number] 21:03:00 Test Item Value Reference Range Interpretation Comments UA Spec Grav (test code = UA Spec 1.015 1 Grav) [facility] AND [id number] 21:03:00 Test Item Value Reference Range Interpretation Comments UA pH (test code = UA pH) 5.0 1 5.0-8.0 [facility] AND [id number] 21:03:00 Test Item Value Reference Range Interpretation Comments UA Protein (test code = UA Negative mg/dL Protein) [facility] AND [id number] 21:03:00 Test Item Value Reference Range Interpretation Comments UA Glucose (test code = UA Negative mg/dL Glucose) [facility] AND [id number] 21:03:00 Test Item Value Reference Range Interpretation Comments UA Ketones (test code = UA Negative mg/dL Ketones) [facility] AND [id number] 21:03:00 Test Item Value Reference Range Interpretation Comments UA Bili (test code = Negative *NA*(10/07/21 UA Bili) 4:03 PM) [facility] AND [id number] 21:03:00 Test Item Value Reference Range Interpretation Comments UA Blood (test code = Negative (10/07/21 4:03 UA Blood) PM) [facility] AND [id number] 21:03:00 Test Item Value Reference Range Interpretation Comments UA Urobilinogen (test code = UA no gt 0.1-1.0 Urobilinogen) [facility] AND [id number] 21:03:00 Test Item Value Reference Range Interpretation Comments UA Nitrite (test code Negative (10/07/21 4:03 = UA Nitrite) PM) [facility] AND [id number] 21:03:00 Test Item Value Reference Range Interpretation Comments UA Leuk Est (test code Large *ABN*(10/07/21 = UA Leuk Est) 4:03 PM) [facility] AND [id number] 21:03:00 Test Item Value Reference Range Interpretation Comments UA WBC (test code = 64 See_Comment [Automa lester message] The UA WBC) system which ge nerated this result transmit lester reference range : <=5. The reference range was not used to interpr et this result as dany l/abnormal. [facility] AND [id number] 21:03:00 Test Item Value Reference Range Interpretation Comments UA RBC (test code = 2 See_Comment [Automa lester message] The UA RBC) system which ge nerated this result transmit lester reference range : <=2. The reference range was not used to interpr et this result as dany l/abnormal. [facility] AND [id number] 21:03:00 Test Item Value Reference Range Interpretation Comments UA Mucus (test code = UA Mucus) Few /LPF [facility] AND [id number] 21:03:00 Test Item Value Reference Range Interpretation Comments UA Sq Epi (test code = UA Sq Epi) None Seen [facility]2022-03-26 21:03:00 Test Item Value Reference Range Interpretation Comments Glucose Lvl (test code = Glucose Lvl) 126 70-99 [facility]2022-03-26 21:03:00 Test Item Value Reference Range Interpretation Comments BUN (test code = BUN) 16 7-22 [place] 938802-03-26 21:03:00 Test Item Value Reference Range Interpretation Comments Creatinine Lvl (test code = Creatinine 0.76 0.50-1.40 Lvl) [facility]2022-03-26 21:03:00 Test Item Value Reference Range Interpretation Comments Sodium Lvl (test code = Sodium Lvl) 140 135-145 [facility]2022-03-26 21:03:00 Test Item Value Reference Range Interpretation Comments Potassium Lvl (test code = Potassium 3.3 3.5-5.1 Lvl) [place] 938802-03-26 21:03:00 Test Item Value Reference Range Interpretation Comments Chloride Lvl (test code = Chloride Lvl) 111 95-109 [place] 938802-03-26 21:03:00 Test Item Value Reference Range Interpretation Comments CO2 (test code = CO2) 22 24-32 [place] 938802-03-26 21:03:00 Test Item Value Reference Range Interpretation Comments Calcium Lvl (test code = Calcium Lvl) 8.5 8.5-10.5 [place] [address]-03-26 21:03:00 Test Item Value Reference Range Interpretation Comments AGAP (test code = AGAP) 10.3 10.0-20.0 [place] [address]-03-26 21:03:00 Test Item Value Reference Range Interpretation Comments eGFR (test code = eGFR) 117 [place] 938802-03-26 21:03:00 Test Item Value Reference Range Interpretation Comments Lactic Acid Lvl (test code = Lactic 1.1 0.5-2.2 Acid Lvl) [place] 752322-03-26 21:03:00 Test Item Value Reference Range Interpretation Comments Segs (test code = Segs) 68.9 45.0-75.0 [place] [address]-03-26 21:03:00 Test Item Value Reference Range Interpretation Comments Lymphocytes (test code = Lymphocytes) 20.4 20.0-40.0 [place] [address]-03-26 21:03:00 Test Item Value Reference Range Interpretation Comments Monocytes (test code = Monocytes) 8.2 2.0-12.0 [place] [address]-03-26 21:03:00 Test Item Value Reference Range Interpretation Comments Eosinophils (test code = 2.2 See_Comment [A utomated message] The Eosinophils) system which ge nerated this result tra nsmitted reference range : <=4.0. The reference r boubacar was not used to int erpret this result as normal/abnormal . [place] [address]-03-26 21:03:00 Test Item Value Reference Range Interpretation Comments Basophils (test code = 0.3 See_Comment [Aut omated message] The Basophils) system which ge nerated this result tra nsmitted reference range : <=1.0. The reference r boubacar was not used to int erpret this result as normal/abnormal . [place] 752322-03-26 21:03:00 Test Item Value Reference Range Interpretation Comments Neutrophils # (test code = Neutrophils 5.5 1.5-8.1 #) [place] 752322-03-26 21:03:00 Test Item Value Reference Range Interpretation Comments Lymphocytes # (test code = Lymphocytes 1.6 1.0-5.5 #) [place] 752322-03-26 21:03:00 Test Item Value Reference Range Interpretation Comments Monocytes # (test code 0.7 See_Comment [Aut omated message] The = Monocytes #) system which generated this result tra nsmitted reference range : <=0.8. The reference r boubacar was not used to int erpret this result as normal/abnormal . [place] [address]-03-26 21:03:00 Test Item Value Reference Range Interpretation Comments Eosinophils # (test code 0.2 See_Comment [A utomated message] The = Eosinophils #) system whic h generated this result tra nsmitted reference range : <=0.5. The reference r boubacar was not used to int erpret this result as normal/abnormal . [place] 752322-03-26 21:03:00 Test Item Value Reference Range Interpretation Comments WBC (test code = WBC) 8.0 3.7-10.4 [place] [address]-03-26 21:03:00 Test Item Value Reference Range Interpretation Comments RBC (test code = RBC) 5.37 4.70-6.10 [place] [address]-03-26 21:03:00 Test Item Value Reference Range Interpretation Comments Hgb (test code = Hgb) 15.9 14.0-18.0 [place] [address]-03-26 21:03:00 Test Item Value Reference Range Interpretation Comments Hct (test code = Hct) 47.3 42.0-54.0 [place] 752322-03-26 21:03:00 Test Item Value Reference Range Interpretation Comments MCV (test code = MCV) 88.1 80.0-94.0 [place] 752322-03-26 21:03:00 Test Item Value Reference Range Interpretation Comments MCH (test code = MCH) 29.6 pg 27.0-31.0 [facility]SsfxykfBONLDXIUSK9198-18-02 21:03:00 Test Item Value Reference Range Interpretation Comments MCHC (test code = MCHC) 33.6 32.0-36.0 [facility] CenterQmznyjgUPIFAJCWCL5770-66-58 21:03:00 Test Item Value Reference Range Interpretation Comments RDW (test code = RDW) 15.3 11.5-14.5 [facility] CenterEawuejhCGUEYQYUGM6087-53-15 21:03:00 Test Item Value Reference Range Interpretation Comments Platelet (test code = Platelet) 370 133-450 [facility] CenterZjlvwiwGYOUDSRFPZ0348-16-16 21:03:00 Test Item Value Reference Range Interpretation Comments MPV (test code = MPV) 8.1 7.4-10.4 [facility] AND [id number] 21:03:00 Test Item Value Reference Range Interpretation Comments UA Comment 1 (test Suboptimal specimen code = UA Comment 1) received. Results may be inaccurate due to the age of the specimen. Interpret results with caution. [facility] AND [id number] 21:03:00 Test Item Value Reference Range Interpretation Comments UA Color (test code = Yellow *NA*(10/07/21 UA Color) 4:03 PM) [facility] AND [id number] 21:03:00 Test Item Value Reference Range Interpretation Comments UA Turbidity (test code Slight *ABN*(10/07/21 = UA Turbidity) 4:03 PM) [facility] AND [id number] 21:03:00 Test Item Value Reference Range Interpretation Comments UA Spec Grav (test code = UA Spec 1.015 1 Grav) [facility] AND [id number] 21:03:00 Test Item Value Reference Range Interpretation Comments UA pH (test code = UA pH) 5.0 1 5.0-8.0 [facility] AND [id number] 21:03:00 Test Item Value Reference Range Interpretation Comments UA Protein (test code = UA Negative mg/dL Protein) [facility] AND [id number] 21:03:00 Test Item Value Reference Range Interpretation Comments UA Glucose (test code = UA Negative mg/dL Glucose) [facility] AND [id number] 21:03:00 Test Item Value Reference Range Interpretation Comments UA Ketones (test code = UA Negative mg/dL Ketones) [facility] [id number] 21:03:00 Test Item Value Reference Range Interpretation Comments UA Bili (test code = Negative *NA*(10/07/21 UA Bili) 4:03 PM) [facility] [id number] 21:03:00 Test Item Value Reference Range Interpretation Comments UA Blood (test code = Negative (10/07/21 4:03 UA Blood) PM) [facility] [id number] 21:03:00 Test Item Value Reference Range Interpretation Comments UA Urobilinogen (test code = UA no gt 0.1-1.0 Urobilinogen) [facility] [id number] 21:03:00 Test Item Value Reference Range Interpretation Comments UA Nitrite (test code Negative (10/07/21 4:03 = UA Nitrite) PM) [facility] [id number] 21:03:00 Test Item Value Reference Range Interpretation Comments UA Leuk Est (test code Large *ABN*(10/07/21 = UA Leuk Est) 4:03 PM) [facility] [id number] 21:03:00 Test Item Value Reference Range Interpretation Comments UA WBC (test code = 64 See_Comment [Automa lester message] The UA WBC) system which ge nerated this result transmit lester reference range : <=5. The reference range was not used to interpr et this result as dany l/abnormal. [facility] [id number] 21:03:00 Test Item Value Reference Range Interpretation Comments UA RBC (test code = 2 See_Comment [Automa lester message] The UA RBC) system which ge nerated this result transmit lester reference range : <=2. The reference range was not used to interpr et this result as dany l/abnormal. [facility] [id number] 21:03:00 Test Item Value Reference Range Interpretation Comments UA Mucus (test code = UA Mucus) Few /LPF [facility] [id number] 21:03:00 Test Item Value Reference Range Interpretation Comments UA Sq Epi (test code = UA Sq Epi) None [facility]en [facility] [address]03-26 09:58:00 Test Item Value Reference Range Interpretation Comments Lactic Acid Lvl (test code = Lactic 2.4 0.5-2.2 Acid Lvl) [address]03-26 09:58:00 Test Item Value Reference Range Interpretation Comments Sed Rate (test code = 13 See_Comment [Auto mated message] The Sed Rate) system which ge nerated this result transmit lester reference range : <=15. The reference range was not used to interpr et this result as dany l/abnormal. [address]03-26 09:58:00 Test Item Value Reference Range Interpretation Comments C-REACTIVE PROTEIN (test code = 10.6 C-REACTIVE PROTEIN) [address]03-26 09:58:00 Test Item Value Reference Range Interpretation Comments Lactic Acid Lvl (test code = Lactic 2.4 0.5-2.2 Acid Lvl) [address]03-26 09:58:00 Test Item Value Reference Range Interpretation Comments Sed Rate (test code = 13 See_Comment [Auto mated message] The Sed Rate) system which ge nerated this result transmit lester reference range : <=15. The reference range was not used to interpr et this result as dany l/abnormal. [address]03-26 09:58:00 Test Item Value Reference Range Interpretation Comments C-REACTIVE PROTEIN (test code = 10.6 C-REACTIVE PROTEIN) [address]03-26 09:58:00 Test Item Value Reference Range Interpretation Comments Lactic Acid Lvl (test code = Lactic 2.4 0.5-2.2 Acid Lvl) [address]03-26 09:58:00 Test Item Value Reference Range Interpretation Comments Sed Rate (test code = 13 See_Comment [Auto mated message] The Sed Rate) system which ge nerated this result transmit lester reference range : <=15. The reference range was not used to interpr et this result as dany l/abnormal. [address]26 09:58:00 Test Item Value Reference Range Interpretation Comments C-REACTIVE PROTEIN (test code = 10.6 C-REACTIVE PROTEIN) [address]03-26 09:58:00 Test Item Value Reference Range Interpretation Comments Lactic Acid Lvl (test code = Lactic 2.4 0.5-2.2 Acid Lvl) [id number] 09:58:00 Test Item Value Reference Range Interpretation Comments Sed Rate (test code = 13 See_Comment [Auto mated message] The Sed Rate) system which ge nerated this result transmit lester reference range : <=15. The reference range was not used to interpr et this result as dany l/abnormal. [facility] [id number] 09:58:00 Test Item Value Reference Range Interpretation Comments C-REACTIVE PROTEIN (test code = 10.6 C-REACTIVE PROTEIN) [facility]2022-03-25 18:36:00 Test Item Value Reference Range Interpretation Comments Protein CSF (test code = Protein CSF) 14 15-45 [place] 091642-03-25 18:36:00 Test Item Value Reference Range Interpretation Comments Glucose CSF (test code = Glucose CSF) 67 45-80 [facility]2022-03-25 18:36:00 Test Item Value Reference Range Interpretation Comments Tube Num CSF (test xxxxxxx (10/06/21 1:36 code = Tube Num CSF) PM) [facility]2022-03-25 18:36:00 Test Item Value Reference Range Interpretation Comments Color CSF (test code Colorless (10/06/21 1:36 = Color CSF) PM) [facility]2022-03-25 18:36:00 Test Item Value Reference Range Interpretation Comments Clarity CSF (test code = Clear (10/06/21 1:36 Clarity CSF) PM) [place] 091642-03-25 18:36:00 Test Item Value Reference Range Interpretation Comments Supernat CSF (test Colorless (10/06/21 1:36 code = Supernat CSF) PM) [place] 091642-03-25 18:36:00 Test Item Value Reference Range Interpretation Comments Nucleated Cells CSF 0 See_Comment [Automa lester message] The (test code = Nucleated syste m which generated Cells CSF) this result tra nsmitted reference range : <=53. The reference r boubacar was not used to int erpret this result as normal/abnormal . [facility]2022-03-25 18:36:00 Test Item Value Reference Range Interpretation Comments RBC CSF (test code = 0 See_Comment [Autom ated message] The RBC CSF) system which ge nerated this result transmit lester reference range : <=03. The reference range was not used to interpr et this result as dany l/abnormal. [facility] [id number] 18:36:00 Test Item Value Reference Range Interpretation Comments Comment CSF (test Differential not code = Comment CSF) performed on WBC count of less than 5. [facility] Center[facility] Oqomol1304-32-59 18:36:00 Test Item Value Reference Range Interpretation Comments Gram Stain Report Gram Stain Performed By: (test code = Gram [facility] Stain Report) [facility] w/Gram [id number] 18:36:00 Test Item Value Reference Range Interpretation Comments Culture: CSF w/Gram Stain (test No Growth code = Culture: CSF w/Gram Stain) [facility]2022-03-25 18:36:00 Test Item Value Reference Range Interpretation Comments Protein CSF (test code = Protein CSF) 14 15-45 [facility]2022-03-25 18:36:00 Test Item Value Reference Range Interpretation Comments Glucose CSF (test code = Glucose CSF) 67 45-80 [facility]2022-03-25 18:36:00 Test Item Value Reference Range Interpretation Comments Tube Num CSF (test xxxxxxx (10/06/21 1:36 code = Tube Num CSF) PM) [facility]2022-03-25 18:36:00 Test Item Value Reference Range Interpretation Comments Color CSF (test code Colorless (10/06/21 1:36 = Color CSF) PM) [facility]2022-03-25 18:36:00 Test Item Value Reference Range Interpretation Comments Clarity CSF (test code = Clear (10/06/21 1:36 Clarity CSF) PM) [facility]2022-03-25 18:36:00 Test Item Value Reference Range Interpretation Comments Supernat CSF (test Colorless (10/06/21 1:36 code = Supernat CSF) PM) [facility]2022-03-25 18:36:00 Test Item Value Reference Range Interpretation Comments Nucleated Cells CSF 0 See_Comment [Automa lester message] The (test code = Nucleated syste m which generated Cells CSF) this result tra nsmitted reference range : <=53. The reference r boubacar was not used to int erpret this result as normal/abnormal . [facility] [id number] 18:36:00 Test Item Value Reference Range Interpretation Comments RBC CSF (test code = 0 See_Comment [Autom ated message] The RBC CSF) system which ge nerated this result transmit lester reference range : <=03. The reference range was not used to interpr et this result as dany l/abnormal. [facility] [id number] 18:36:00 Test Item Value Reference Range Interpretation Comments Comment CSF (test Differential not code = Comment CSF) performed on WBC count of less than 5. [facility] Tijydl6534-03-59 18:36:00 Test Item Value Reference Range Interpretation Comments Gram Stain Report Gram Stain Performed By: (test code = Gram [facility] [place] Stain Report) [facility]: CSF w/Gram [id number] 18:36:00 Test Item Value Reference Range Interpretation Comments Culture: CSF w/Gram Stain (test No Growth code = Culture: CSF w/Gram Stain) [facility]2022-03-25 18:36:00 Test Item Value Reference Range Interpretation Comments Protein CSF (test code = Protein CSF) 14 15-45 [facility] [id number] 18:36:00 Test Item Value Reference Range Interpretation Comments Glucose CSF (test code = Glucose CSF) 67 45-80 [facility]2022-03-25 18:36:00 Test Item Value Reference Range Interpretation Comments Tube Num CSF (test xxxxxxx (10/06/21 1:36 code = Tube Num CSF) PM) [facility] [id number] 18:36:00 Test Item Value Reference Range Interpretation Comments Color CSF (test code Colorless (10/06/21 1:36 = Color CSF) PM) [facility] [id number] 18:36:00 Test Item Value Reference Range Interpretation Comments Clarity CSF (test code = Clear (10/06/21 1:36 Clarity CSF) PM) [facility]2022-03-25 18:36:00 Test Item Value Reference Range Interpretation Comments Supernat CSF (test Colorless (10/06/21 1:36 code = Supernat CSF) PM) [facility]2022-03-25 18:36:00 Test Item Value Reference Range Interpretation Comments Nucleated Cells CSF 0 See_Comment [Automa lester message] The (test code = Nucleated syste m which generated Cells CSF) this result tra nsmitted reference range : <=53. The reference r boubacar was not used to int erpret this result as normal/abnormal . [facility]2022-03-25 18:36:00 Test Item Value Reference Range Interpretation Comments RBC CSF (test code = 0 See_Comment [Autom ated message] The RBC CSF) system which ge nerated this result transmit lester reference range : <=03. The reference range was not used to interpr et this result as dany l/abnormal. [facility]2022-03-25 18:36:00 Test Item Value Reference Range Interpretation Comments Comment CSF (test Differential not code = Comment CSF) performed on WBC count of less than 5. [facility] [id number] 18:36:00 Test Item Value Reference Range Interpretation Comments Gram Stain Report Gram Stain Performed By: (test code = Gram [facility] Stain Report) [facility]: CSF w/Gram [id number] 18:36:00 Test Item Value Reference Range Interpretation Comments Culture: CSF w/Gram Stain (test No Growth code = Culture: CSF w/Gram Stain) [facility] [facility]2022-03-25 18:36:00 Test Item Value Reference Range Interpretation Comments Protein CSF (test code = Protein CSF) 14 15-45 [place] 091642-03-25 18:36:00 Test Item Value Reference Range Interpretation Comments Glucose CSF (test code = Glucose CSF) 67 45-80 [facility]2022-03-25 18:36:00 Test Item Value Reference Range Interpretation Comments Tube Num CSF (test xxxxxxx (10/06/21 1:36 code = Tube Num CSF) PM) [facility]2022-03-25 18:36:00 Test Item Value Reference Range Interpretation Comments Color CSF (test code Colorless (10/06/21 1:36 = Color CSF) PM) [facility]2022-03-25 18:36:00 Test Item Value Reference Range Interpretation Comments Clarity CSF (test code = Clear (10/06/21 1:36 Clarity CSF) PM) [facility] [id number] 18:36:00 Test Item Value Reference Range Interpretation Comments Supernat CSF (test Colorless (10/06/21 1:36 code = Supernat CSF) PM) [facility]2022-03-25 18:36:00 Test Item Value Reference Range Interpretation Comments Nucleated Cells CSF 0 See_Comment [Automa lester message] The (test code = Nucleated syste m which generated Cells CSF) this result tra nsmitted reference range : <=53. The reference r boubacar was not used to int erpret this result as normal/abnormal . [facility] [id number] 18:36:00 Test Item Value Reference Range Interpretation Comments RBC CSF (test code = 0 See_Comment [Autom ated message] The RBC CSF) system which ge nerated this result transmit lester reference range : <=03. The reference range was not used to interpr et this result as dany l/abnormal. [facility]2022-03-25 18:36:00 Test Item Value Reference Range Interpretation Comments Comment CSF (test Differential not code = Comment CSF) performed on WBC count of less than 5. [facility] Fplinf9834-26-50 18:36:00 Test Item Value Reference Range Interpretation Comments Gram Stain Report Gram Stain Performed By: (test code = Gram [facility] Stain Report) [facility] w/Gram Jadbv1609-56-77 18:36:00 Test Item Value Reference Range Interpretation Comments Culture: CSF w/Gram Stain (test No Growth code = Culture: CSF w/Gram Stain) [facility] CenterEiktutkIQMRXRDOKL9208-15-43 08:28:00 Test Item Value Reference Range Interpretation Comments Coronavirus (COVID-19) Not Detected (10/06/21 OUMOU (test code = 3:28 AM) Coronavirus (COVID-19) OUMOU) [facility] CenterHduftjcEPXPFRXLAY3772-11-68 08:28:00 Test Item Value Reference Range Interpretation Comments Coronavirus (COVID-19) Not Detected (10/06/21 OUMOU (test code = 3:28 AM) Coronavirus (COVID-19) OUMOU) [facility] CenterPzoyhcmDHYMFKCVGQ5650-88-74 08:28:00 Test Item Value Reference Range Interpretation Comments Coronavirus (COVID-19) Not Detected (10/06/21 OUMOU (test code = 3:28 AM) Coronavirus (COVID-19) OUMOU) [facility] CenterPhnkzptKQBFLPOKLK4789-83-29 08:28:00 Test Item Value Reference Range Interpretation Comments Coronavirus (COVID-19) Not Detected (10/06/21 OUMOU (test code = 3:28 AM) Coronavirus (COVID-19) OUMOU) [facility] CenterCfwfpirFZYMOPTMII3014-68-69 06:48:00 Test Item Value Reference Range Interpretation Comments MPV (test code = MPV) 8.5 7.4-10.4 [facility] CenterFpqgkftTGMWTVVNMN6576-84-44 06:48:00 Test Item Value Reference Range Interpretation Comments PT (test code = PT) 12.9 s 12.0-14.7 [facility] CenterAovydvkOAWVSKXILZ9248-89-27 06:48:00 Test Item Value Reference Range Interpretation Comments INR (test code = INR) 0.98 1 0.85-1.17 [facility] CenterVniwbumWGSSKOUCHK8562-54-60 06:48:00 Test Item Value Reference Range Interpretation Comments PTT (test code = PTT) 31.4 s 22.9-35.8 [facility] [employer] [id number] 06:48:00 Test Item Value Reference Range Interpretation Comments Antibody Scrn (test Negative (10/06/21 1:48 code = Antibody Scrn) AM) [facility] WYAOSWL1576-72-65 06:48:00 Test Item Value Reference Range Interpretation Comments ABO/Rh (test code = ABO/Rh) AB POS [facility] CenterUtyrdzzCBBJGHPEGP2260-75-27 06:48:00 Test Item Value Reference Range Interpretation Comments Segs (test code = Segs) 70.8 45.0-75.0 [facility] CenterLihgzplEWCKAMFOMN3265-02-33 06:48:00 Test Item Value Reference Range Interpretation Comments Lymphocytes (test code = Lymphocytes) 20.8 20.0-40.0 [facility] CenterUwbbdtjFFEKGWRWKA8828-66-83 06:48:00 Test Item Value Reference Range Interpretation Comments Monocytes (test code = Monocytes) 5.8 2.0-12.0 [facility] CenterKimwespBLIZIXPLWI0661-70-67 06:48:00 Test Item Value Reference Range Interpretation Comments Eosinophils (test code = 2.3 See_Comment [A utomated message] The Eosinophils) system which ge nerated this result tra nsmitted reference range : <=4.0. The reference r boubacar was not used to int erpret this result as normal/abnormal . [place] 752322-03-25 06:48:00 Test Item Value Reference Range Interpretation Comments Basophils (test code = 0.3 See_Comment [Aut omated message] The Basophils) system which ge nerated this result tra nsmitted reference range : <=1.0. The reference r boubacar was not used to int erpret this result as normal/abnormal . [place] 752322-03-25 06:48:00 Test Item Value Reference Range Interpretation Comments Neutrophils # (test code = Neutrophils 8.4 1.5-8.1 #) [place] 752322-03-25 06:48:00 Test Item Value Reference Range Interpretation Comments Lymphocytes # (test code = Lymphocytes 2.5 1.0-5.5 #) [place] 752322-03-25 06:48:00 Test Item Value Reference Range Interpretation Comments Monocytes # (test code 0.7 See_Comment [Aut omated message] The = Monocytes #) system which generated this result tra nsmitted reference range : <=0.8. The reference r boubacar was not used to int erpret this result as normal/abnormal . [place] 752322-03-25 06:48:00 Test Item Value Reference Range Interpretation Comments Eosinophils # (test code 0.3 See_Comment [A utomated message] The = Eosinophils #) system whic h generated this result tra nsmitted reference range : <=0.5. The reference r boubacar was not used to int erpret this result as normal/abnormal . [facility] CenterRxivkhyANKMKIJSRK1058-80-44 06:48:00 Test Item Value Reference Range Interpretation Comments WBC X 10x3 (test code = WBC X 10x3) 11.9 3.7-10.4 [place] 752322-03-25 06:48:00 Test Item Value Reference Range Interpretation Comments RBC X 10x6 (test code = RBC X 10x6) 5.95 4.70-6.10 [place] 752322-03-25 06:48:00 Test Item Value Reference Range Interpretation Comments Hgb (test code = Hgb) 17.9 14.0-18.0 [facility] CenterAdfgbemJBAWWHXDBI1263-76-59 06:48:00 Test Item Value Reference Range Interpretation Comments Hct (test code = Hct) 52.0 42.0-54.0 [facility] CenterAiehjtkKAZPYNKXVO5650-90-19 06:48:00 Test Item Value Reference Range Interpretation Comments MCV (test code = MCV) 87.5 80.0-94.0 [facility] CenterBakxemtETOIOUKDAT2198-61-80 06:48:00 Test Item Value Reference Range Interpretation Comments MCH (test code = MCH) 30.2 pg 27.0-31.0 [facility] CenterUtxvmxqXPGXKWEDTL4946-10-78 06:48:00 Test Item Value Reference Range Interpretation Comments MCHC (test code = MCHC) 34.5 32.0-36.0 [facility] CenterYzprvvxNBEQUPGHML3203-75-39 06:48:00 Test Item Value Reference Range Interpretation Comments RDW (test code = RDW) 15.4 11.5-14.5 [facility] CenterGiniqbuIDAROXIQDQ1430-98-19 06:48:00 Test Item Value Reference Range Interpretation Comments Platelet (test code = Platelet) 414 133-450 [facility] CenterSrkryusJUPUPILYFR6182-07-03 06:48:00 Test Item Value Reference Range Interpretation Comments MPV (test code = MPV) 8.5 7.4-10.4 [facility] CenterZdujsvkXIFACRSDGP3952-65-42 06:48:00 Test Item Value Reference Range Interpretation Comments PT (test code = PT) 12.9 s 12.0-14.7 [facility] CenterGvauzxtRRNFYRSDOL9062-74-86 06:48:00 Test Item Value Reference Range Interpretation Comments INR (test code = INR) 0.98 1 0.85-1.17 [facility] CenterVbllxdbXXXCFFTBKM1618-38-07 06:48:00 Test Item Value Reference Range Interpretation Comments PTT (test code = PTT) 31.4 s 22.9-35.8 [facility] [employer] OBFMRWQ9542-83-87 06:48:00 Test Item Value Reference Range Interpretation Comments Antibody Scrn (test Negative (10/06/21 1:48 code = Antibody Scrn) AM) [facility] [employer] DHRFJNU1288-09-96 06:48:00 Test Item Value Reference Range Interpretation Comments ABO/Rh (test code = ABO/Rh) AB POS [place] 752322-03-25 06:48:00 Test Item Value Reference Range Interpretation Comments Segs (test code = Segs) 70.8 45.0-75.0 [place] [address]-03-25 06:48:00 Test Item Value Reference Range Interpretation Comments Lymphocytes (test code = Lymphocytes) 20.8 20.0-40.0 [place] 752322-03-25 06:48:00 Test Item Value Reference Range Interpretation Comments Monocytes (test code = Monocytes) 5.8 2.0-12.0 [place] [address]-03-25 06:48:00 Test Item Value Reference Range Interpretation Comments Eosinophils (test code = 2.3 See_Comment [A utomated message] The Eosinophils) system which ge nerated this result tra nsmitted reference range : <=4.0. The reference r boubacar was not used to int erpret this result as normal/abnormal . [place] [address]-03-25 06:48:00 Test Item Value Reference Range Interpretation Comments Basophils (test code = 0.3 See_Comment [Aut omated message] The Basophils) system which ge nerated this result tra nsmitted reference range : <=1.0. The reference r boubacar was not used to int erpret this result as normal/abnormal . [place] [address]-03-25 06:48:00 Test Item Value Reference Range Interpretation Comments Neutrophils # (test code = Neutrophils 8.4 1.5-8.1 #) [place] [address]-03-25 06:48:00 Test Item Value Reference Range Interpretation Comments Lymphocytes # (test code = Lymphocytes 2.5 1.0-5.5 #) [place] [address]-03-25 06:48:00 Test Item Value Reference Range Interpretation Comments Monocytes # (test code 0.7 See_Comment [Aut omated message] The = Monocytes #) system which generated this result tra nsmitted reference range : <=0.8. The reference r boubacar was not used to int erpret this result as normal/abnormal . [place] 752322-03-25 06:48:00 Test Item Value Reference Range Interpretation Comments Eosinophils # (test code 0.3 See_Comment [A utomated message] The = Eosinophils #) system whic h generated this result tra nsmitted reference range : <=0.5. The reference r boubacar was not used to int erpret this result as normal/abnormal . [place] 752322-03-25 06:48:00 Test Item Value Reference Range Interpretation Comments WBC X 10x3 (test code = WBC X 10x3) 11.9 3.7-10.4 [place] 752322-03-25 06:48:00 Test Item Value Reference Range Interpretation Comments RBC X 10x6 (test code = RBC X 10x6) 5.95 4.70-6.10 [place] 752322-03-25 06:48:00 Test Item Value Reference Range Interpretation Comments Hgb (test code = Hgb) 17.9 14.0-18.0 [place] 752322-03-25 06:48:00 Test Item Value Reference Range Interpretation Comments Hct (test code = Hct) 52.0 42.0-54.0 [place] 752322-03-25 06:48:00 Test Item Value Reference Range Interpretation Comments MCV (test code = MCV) 87.5 80.0-94.0 [place] 752322-03-25 06:48:00 Test Item Value Reference Range Interpretation Comments MCH (test code = MCH) 30.2 pg 27.0-31.0 [place] 752322-03-25 06:48:00 Test Item Value Reference Range Interpretation Comments MCHC (test code = MCHC) 34.5 32.0-36.0 [place] 752322-03-25 06:48:00 Test Item Value Reference Range Interpretation Comments RDW (test code = RDW) 15.4 11.5-14.5 [place] 752322-03-25 06:48:00 Test Item Value Reference Range Interpretation Comments Platelet (test code = Platelet) 414 133-450 [place] 752322-03-25 06:48:00 Test Item Value Reference Range Interpretation Comments MPV (test code = MPV) 8.5 7.4-10.4 [place] 752322-03-25 06:48:00 Test Item Value Reference Range Interpretation Comments PT (test code = PT) 12.9 s 12.0-14.7 [place] 752322-03-25 06:48:00 Test Item Value Reference Range Interpretation Comments INR (test code = INR) 0.98 1 0.85-1.17 [facility] CenterHxdhorzMXZRJDXJZD5189-77-06 06:48:00 Test Item Value Reference Range Interpretation Comments PTT (test code = PTT) 31.4 s 22.9-35.8 [facility] FIXFPCJ6214-87-32 06:48:00 Test Item Value Reference Range Interpretation Comments Antibody Scrn (test Negative (10/06/21 1:48 code = Antibody Scrn) AM) [facility] YWCKWRK7289-66-13 06:48:00 Test Item Value Reference Range Interpretation Comments ABO/Rh (test code = ABO/Rh) AB POS [facility] CenterIeaaegjNGWQSLGIHU5966-81-23 06:48:00 Test Item Value Reference Range Interpretation Comments Segs (test code = Segs) 70.8 45.0-75.0 [facility] CenterFhfrizfPYQRLFXRJJ2507-48-82 06:48:00 Test Item Value Reference Range Interpretation Comments Lymphocytes (test code = Lymphocytes) 20.8 20.0-40.0 [facility] CenterWanuaceGTGMCXURXJ4053-57-66 06:48:00 Test Item Value Reference Range Interpretation Comments Monocytes (test code = Monocytes) 5.8 2.0-12.0 [facility] CenterWlxmanvLOMRQGCSTB5231-26-27 06:48:00 Test Item Value Reference Range Interpretation Comments Eosinophils (test code = 2.3 See_Comment [A utomated message] The Eosinophils) system which ge nerated this result tra nsmitted reference range : <=4.0. The reference r boubacar was not used to int erpret this result as normal/abnormal . [facility] CenterJmwmjxxFFHMIXEZSN4716-65-31 06:48:00 Test Item Value Reference Range Interpretation Comments Basophils (test code = 0.3 See_Comment [Aut omated message] The Basophils) system which ge nerated this result tra nsmitted reference range : <=1.0. The reference r boubacar was not used to int erpret this result as normal/abnormal . [facility] CenterVktydvpETYYGPJUMR1765-96-95 06:48:00 Test Item Value Reference Range Interpretation Comments Neutrophils # (test code = Neutrophils 8.4 1.5-8.1 #) [facility] CenterBbpkxuiMRZXONXQDF1043-24-09 06:48:00 Test Item Value Reference Range Interpretation Comments Lymphocytes # (test code = Lymphocytes 2.5 1.0-5.5 #) [facility] CenterPxggznyTVDCEZBAWT5246-97-23 06:48:00 Test Item Value Reference Range Interpretation Comments Monocytes # (test code 0.7 See_Comment [Aut omated message] The = Monocytes #) system which generated this result tra nsmitted reference range : <=0.8. The reference r boubacar was not used to int erpret this result as normal/abnormal . [facility] CenterZuloljaAHUIJEZSRW2377-58-24 06:48:00 Test Item Value Reference Range Interpretation Comments Eosinophils # (test code 0.3 See_Comment [A utomated message] The = Eosinophils #) system whic h generated this result tra nsmitted reference range : <=0.5. The reference r boubacar was not used to int erpret this result as normal/abnormal . [facility] CenterLzdnpuoQPUODDWKAE0474-14-23 06:48:00 Test Item Value Reference Range Interpretation Comments WBC X 10x3 (test code = WBC X 10x3) 11.9 3.7-10.4 [place] 752322-03-25 06:48:00 Test Item Value Reference Range Interpretation Comments RBC X 10x6 (test code = RBC X 10x6) 5.95 4.70-6.10 [facility] CenterIfbreslPIIYHOGASG1022-28-48 06:48:00 Test Item Value Reference Range Interpretation Comments Hgb (test code = Hgb) 17.9 14.0-18.0 [place] 752322-03-25 06:48:00 Test Item Value Reference Range Interpretation Comments Hct (test code = Hct) 52.0 42.0-54.0 [place] 752322-03-25 06:48:00 Test Item Value Reference Range Interpretation Comments MCV (test code = MCV) 87.5 80.0-94.0 [place] [address]-03-25 06:48:00 Test Item Value Reference Range Interpretation Comments MCH (test code = MCH) 30.2 pg 27.0-31.0 [place] 752322-03-25 06:48:00 Test Item Value Reference Range Interpretation Comments MCHC (test code = MCHC) 34.5 32.0-36.0 [place] 752322-03-25 06:48:00 Test Item Value Reference Range Interpretation Comments RDW (test code = RDW) 15.4 11.5-14.5 [facility] CenterIpdxiaiYHJFYMSHYM6985-20-09 06:48:00 Test Item Value Reference Range Interpretation Comments Platelet (test code = Platelet) 414 133-450 [facility] CenterMnwfvsxSARNQOKUAL2550-32-69 06:48:00 Test Item Value Reference Range Interpretation Comments MPV (test code = MPV) 8.5 7.4-10.4 [facility] CenterMghtystVFUYIAUWPN7718-27-17 06:48:00 Test Item Value Reference Range Interpretation Comments PT (test code = PT) 12.9 s 12.0-14.7 [facility] CenterOtisdnaIXIMRFZVYG3170-38-48 06:48:00 Test Item Value Reference Range Interpretation Comments INR (test code = INR) 0.98 1 0.85-1.17 [facility] CenterJfqiasfVEYXJNHSUE3903-86-38 06:48:00 Test Item Value Reference Range Interpretation Comments PTT (test code = PTT) 31.4 s 22.9-35.8 [facility] [employer] UGIWLLI6424-35-44 06:48:00 Test Item Value Reference Range Interpretation Comments Antibody Scrn (test Negative (10/06/21 1:48 code = Antibody Scrn) AM) [facility] [employer] SLKXFZG2574-60-66 06:48:00 Test Item Value Reference Range Interpretation Comments ABO/Rh (test code = ABO/Rh) AB POS [facility] CenterOwzrnvoARBFWWYGTS1920-42-52 06:48:00 Test Item Value Reference Range Interpretation Comments Segs (test code = Segs) 70.8 45.0-75.0 [facility] CenterGeqdadmDYPBOMAOIJ8753-60-12 06:48:00 Test Item Value Reference Range Interpretation Comments Lymphocytes (test code = Lymphocytes) 20.8 20.0-40.0 [facility] CenterEwuunjdXRTDBJMWKV7521-83-32 06:48:00 Test Item Value Reference Range Interpretation Comments Monocytes (test code = Monocytes) 5.8 2.0-12.0 [facility] CenterNbmyadvMHFJJBGLNB6932-72-34 06:48:00 Test Item Value Reference Range Interpretation Comments Eosinophils (test code = 2.3 See_Comment [A utomated message] The Eosinophils) system which ge nerated this result tra nsmitted reference range : <=4.0. The reference r boubacar was not used to int erpret this result as normal/abnormal . [facility] CenterFyqqltbWIQUVJARBX3101-96-70 06:48:00 Test Item Value Reference Range Interpretation Comments Basophils (test code = 0.3 See_Comment [Aut omated message] The Basophils) system which ge nerated this result tra nsmitted reference range : <=1.0. The reference r boubacar was not used to int erpret this result as normal/abnormal . [place] 752322-03-25 06:48:00 Test Item Value Reference Range Interpretation Comments Neutrophils # (test code = Neutrophils 8.4 1.5-8.1 #) [place] 752322-03-25 06:48:00 Test Item Value Reference Range Interpretation Comments Lymphocytes # (test code = Lymphocytes 2.5 1.0-5.5 #) [place] 752322-03-25 06:48:00 Test Item Value Reference Range Interpretation Comments Monocytes # (test code 0.7 See_Comment [Aut omated message] The = Monocytes #) system which generated this result tra nsmitted reference range : <=0.8. The reference r boubacar was not used to int erpret this result as normal/abnormal . [facility] CenterEnewuzpCKUBZPWIRA1307-62-21 06:48:00 Test Item Value Reference Range Interpretation Comments Eosinophils # (test code 0.3 See_Comment [A utomated message] The = Eosinophils #) system whic h generated this result tra nsmitted reference range : <=0.5. The reference r boubacar was not used to int erpret this result as normal/abnormal . [facility] CenterPoiegqaMHKRAQOMNV2437-18-91 06:48:00 Test Item Value Reference Range Interpretation Comments WBC X 10x3 (test code = WBC X 10x3) 11.9 3.7-10.4 [place] [address]-03-25 06:48:00 Test Item Value Reference Range Interpretation Comments RBC X 10x6 (test code = RBC X 10x6) 5.95 4.70-6.10 [place] 752322-03-25 06:48:00 Test Item Value Reference Range Interpretation Comments Hgb (test code = Hgb) 17.9 14.0-18.0 [place] 752322-03-25 06:48:00 Test Item Value Reference Range Interpretation Comments Hct (test code = Hct) 52.0 42.0-54.0 [facility] CenterHgvslcaWWBRAIXWBJ5333-45-38 06:48:00 Test Item Value Reference Range Interpretation Comments MCV (test code = MCV) 87.5 80.0-94.0 [facility] CenterGefcznhTFVRFRCCNG8413-44-77 06:48:00 Test Item Value Reference Range Interpretation Comments MCH (test code = MCH) 30.2 pg 27.0-31.0 [facility] CenterQhquhemTZURCWBBNO3622-40-18 06:48:00 Test Item Value Reference Range Interpretation Comments MCHC (test code = MCHC) 34.5 32.0-36.0 [facility] CenterYpijcilIUJCGXBTZF1507-98-63 06:48:00 Test Item Value Reference Range Interpretation Comments RDW (test code = RDW) 15.4 11.5-14.5 [facility] CenterZbfpiqkXNNQAGUDGO3808-38-09 06:48:00 Test Item Value Reference Range Interpretation Comments Platelet (test code = Platelet) 414 133-450 [facility] WITH OCBT6817-12-42 00:23:28 Test Item Value Reference Range Interpretation Comments WBC (test code = See_Comment H [Automated 2290-2) message] The sy stem which generated this result transmitted reference range : 4.20 - 10.70 10*3/?L. The reference range was not used to interpret this result as normal/abnormal . RBC (test code = See_Comment H [Automated 849-8) message] The sy stem which generated this [...] RDW-SD (test code = 47.6 fL 38.5-51.6 85280-5) RDW-CV (test code = 15.1 % 12.1-15.4 788-0) PLT (test code = See_Comment H [Automated 777-3) message] The sy stem which generated this result transmitted reference range : 150 - 328 10*3/ ?L. The reference r boubacar was not used to interpret this result as normal/abnormal . MPV (test code = 10.5 fL 9.8-13.0 33815-3) NRBC/100 WBC (test See_Comment [Automat ed code = [id number]) message] The system which generated this result transmitted reference range : 0.0 - 10.0 /100 WBCs. The refer ence range was not u sed to interpret th is result as normal/abnormal . NRBC x10^3 (test code <0.01 See_Comment [Auto mated = [id number]) message] The s ystem which generated this result transmitted reference range : 10*3/?L. The reference range was not used to interpret this result as normal/abnormal . GRAN MAT (NEUT) % 66.7 % (test code = 770-8) IMM GRAN % (test code 0.40 % = 5673209718) LYMPH % (test code = 24.4 % 736-9) MONO % (test code = 6.6 % 5905-5) EOS % (test code = 1.5 % 713-8) BASO % (test code = 0.4 % 706-2) GRAN MAT x10^3(ANC) 7.43 10*3/uL 1.99-6.95 H (test code = 3946229844) IMM GRAN x10^3 (test 0.04 10*3/uL 0.00-0.06 code = 7725148015) LYMPH x10^3 (test code 2.72 10*3/uL 1.09-3.23 = 731-0) MONO x10^3 (test code 0.74 10*3/uL 0.36-1.02 = 742-7) EOS x10^3 (test code = 0.17 10*3/uL 0.06-0.53 711-2) BASO x10^3 (test code 0.04 10*3/uL 0.01-0.09 = 704-7) Lab Interpretation Abnormal (test code = 93176-9) [facility]. METABOLIC PANEL (26963)2021-09-29 00:18:07 Test Item Value Reference Range Interpretation Comments NA (test code = 139 mmol/L 135-145 0853710249) K (test code = 4.8 mmol/L 3.5-5.0 1996863708) CL (test code = 104 mmol/L 98-108 5567305612) CO2 TOTAL (test code = 22 mmol/L 23-31 L 5739581117) AGAP (test code = 2-16 0124686117) BUN (test code = 15 mg/dL 7-23 3278085004) GLUCOSE (test code = 93 mg/dL 70-110 9164722169) CREATININE (test code = 0.67 mg/dL 0.60-1.25 0714448928) TOTAL BILI (test code = 0.7 mg/dL 0.1-1.6 1765691157) CALCIUM (test code = 9.8 mg/dL 8.6-10.6 8115364523) T PROTEIN (test code = 8.9 g/dL 6.3-8.2 H 6616326811) ALBUMIN (test code = 4.9 g/dL 3.5-5.0 7449117472) ALK PHOS (test code = 126 U/L 34-122 H 6163870488) ALTv (test code = 43 U/L 5-50 1742-6) AST(SGOT) (test code = 28 U/L 13-40 7388327158) eGFR (test code = mL/min/1.73m2 9651648373) ARPITA (test code = ARPITA) Association of [...] tests). Lab Interpretation Abnormal (test code = 39059-9) [facility]. METABOLIC PANEL ([id number])2021-08-06 12:48:40 Test Item Value Reference Range Interpretation Comments NA (test code = 137 mmol/L 135-145 2979214401) K (test code = 4.5 mmol/L 3.5-5.0 7846187988) CL (test code = 107 mmol/L 98-108 4541211325) CO2 TOTAL (test code = 24 mmol/L 23-31 4974282320) AGAP (test code = 2-16 8913622757) BUN (test code = 16 mg/dL 7-23 1781922488) GLUCOSE (test code = 116 mg/dL 70-110 H 6005043709) CREATININE (test code = 0.62 mg/dL 0.60-1.25 4761010025) TOTAL BILI (test code = 0.4 mg/dL 0.1-1.5 9910021969) CALCIUM (test code = 8.7 mg/dL 8.6-10.6 9527703744) T PROTEIN (test code = 7.5 g/dL 6.3-8.2 3782394982) ALBUMIN (test code = 3.9 g/dL 3.5-5.0 2200032793) ALK PHOS (test code = 93 U/L 34-122 3480181220) ALTv (test code = 40 U/L 5-50 2-6) AST(SGOT) (test code = 51 U/L 13-40 H 9612989749) eGFR (test code = mL/min/1.73m2 2621155757) ARPITA (test code = ARPITA) Association of [...] tests). Lab Interpretation Abnormal (test code = 02605-3) [facility] WITH [id number] 12:21:36 Test Item Value Reference Range Interpretation Comments WBC (test code = See_Comment [Automated 9775-2) message] The sy stem which generated this result transmitted reference range : 4.20 - 10.70 10*3/?L. The reference range was not used to interpret this result as normal/abnormal . RBC (test code = See_Comment [Automated 965-4) message] The sy stem which generated this [...] RDW-SD (test code = 50.6 fL 38.5-51.6 52128-1) RDW-CV (test code = 15.3 % 12.1-15.4 788-0) PLT (test code = See_Comment H [Automated 777-3) message] The sy stem which generated this result transmitted reference range : 150 - 328 10*3/ ?L. The reference r boubacar was not used to interpret this result as normal/abnormal . MPV (test code = 10.3 fL 9.8-13.0 13655-2) NRBC/100 WBC (test See_Comment [Automat ed code = 3983317864) message] The system which generated this result transmitted reference range : 0.0 - 10.0 /100 WBCs. The refer ence range was not u sed to interpret th is result as normal/abnormal . NRBC x10^3 (test code <0.01 See_Comment [Auto mated = 0157457690) message] The s ystem which generated this result transmitted reference range : 10*3/?L. The reference range was not used to interpret this result as normal/abnormal . GRAN MAT (NEUT) % 61.5 % (test code = 770-8) IMM GRAN % (test code 0.80 % = 2552054210) LYMPH % (test code = 27.8 % 736-9) MONO % (test code = 6.9 % 5905-5) EOS % (test code = 2.4 % 713-8) BASO % (test code = 0.6 % 706-2) GRAN MAT x10^3(ANC) 6.07 10*3/uL 1.99-6.95 (test code = 8178092701) IMM GRAN x10^3 (test 0.08 10*3/uL 0.00-0.06 H code = 5252862464) LYMPH x10^3 (test code 2.75 10*3/uL 1.09-3.23 = 731-0) MONO x10^3 (test code 0.68 10*3/uL 0.36-1.02 = 742-7) EOS x10^3 (test code = 0.24 10*3/uL 0.06-0.53 711-2) BASO x10^3 (test code 0.06 10*3/uL 0.01-0.09 = 704-7) Lab Interpretation Abnormal (test code = 08076-9) [facility] Metabolic Panel (NA, K, CL, CO2, GLUCOSE, BUN, CREATININE, CA)2021-08-04 12:40:30 Test Item Value Reference Range Interpretation Comments NA (test code = 139 mmol/L 135-145 2852865218) K (test code = 3.9 mmol/L 3.5-5.0 5602097415) CL (test code = 108 mmol/L 98-108 2748562843) CO2 TOTAL (test code = 25 mmol/L 23-31 3391480499) AGAP (test code = 2-16 8891000127) BUN (test code = 14 mg/dL 7-23 2910762182) GLUCOSE (test code = 107 mg/dL 70-110 9852852695) CREATININE (test code = 0.61 mg/dL 0.60-1.25 2006872755) CALCIUM (test code = 8.1 mg/dL 8.6-10.6 L 0370586995) eGFR (test code = mL/min/1.73m2 4676109988) ARPITA (test code = ARPITA) Association of [...] tests). Lab Interpretation Abnormal (test code = 47083-3) [facility] with [id number] 12:23:51 Test Item Value Reference Range Interpretation Comments WBC (test code = See_Comment [Automated 0790-2) message] The sy stem which generated this result transmitted reference range : 4.20 - 10.70 10*3/?L. The reference range was not used to interpret this result as normal/abnormal . RBC (test code = See_Comment [Automated 169-8) message] The sy stem which generated this [...] RDW-SD (test code = 49.3 fL 38.5-51.6 26447-3) RDW-CV (test code = 15.3 % 12.1-15.4 788-0) PLT (test code = See_Comment H [Automated 777-3) message] The sy stem which generated this result transmitted reference range : 150 - 328 10*3/ ?L. The reference r boubacar was not used to interpret this result as normal/abnormal . MPV (test code = 10.2 fL 9.8-13.0 65527-2) NRBC/100 WBC (test See_Comment [Automat ed code = 5975237442) message] The system which generated this result transmitted reference range : 0.0 - 10.0 /100 WBCs. The refer ence range was not u sed to interpret th is result as normal/abnormal . NRBC x10^3 (test code <0.01 See_Comment [Auto mated = 3778193872) message] The s ystem which generated this result transmitted reference range : 10*3/?L. The reference range was not used to interpret this result as normal/abnormal . GRAN MAT (NEUT) % 56.7 % (test code = 770-8) IMM GRAN % (test code 0.60 % = 5778009380) LYMPH % (test code = 31.1 % 736-9) MONO % (test code = 8.7 % 5905-5) EOS % (test code = 2.4 % 713-8) BASO % (test code = 0.5 % 706-2) GRAN MAT x10^3(ANC) 4.83 10*3/uL 1.99-6.95 (test code = 2192584246) IMM GRAN x10^3 (test 0.05 10*3/uL 0.00-0.06 code = 0514304384) LYMPH x10^3 (test code 2.64 10*3/uL 1.09-3.23 = 731-0) MONO x10^3 (test code 0.74 10*3/uL 0.36-1.02 = 742-7) EOS x10^3 (test code = 0.20 10*3/uL 0.06-0.53 711-2) BASO x10^3 (test code 0.04 10*3/uL 0.01-0.09 = 704-7) Lab Interpretation Abnormal (test code = 25319-8) [facility][id number][facility] 06:32:14 Test Item Value Reference Range Interpretation Comments NA (test code = 139 mmol/L 135-145 3269175204) K (test code = 4.5 mmol/L 3.5-5.0 2944803812) CL (test code = 102 mmol/L 98-108 8320827109) CO2 TOTAL (test code = 26 mmol/L 23-31 6655136592) AGAP (test code = 2-16 0271707708) BUN (test code = 16 mg/dL 7-23 7865404375) GLUCOSE (test code = 99 mg/dL 70-110 0121377250) CREATININE (test code = 0.83 mg/dL 0.60-1.25 3021890615) TOTAL BILI (test code = 0.6 mg/dL 0.1-1.7 7507608752) CALCIUM (test code = 9.5 mg/dL 8.6-10.6 3460537306) T PROTEIN (test code = 8.6 g/dL 6.3-8.2 H 9540086409) ALBUMIN (test code = 4.6 g/dL 3.5-5.0 4311341699) ALK PHOS (test code = 121 U/L 34-122 8021548680) ALTv (test code = 58 U/L 5-50 H 1742-6) AST(SGOT) (test code = 32 U/L 13-40 7505176362) eGFR (test code = mL/min/1.73m2 1322496370) ARPITA (test code = ARPITA) Association of [...] tests). Lab Interpretation Abnormal (test code = 51735-6) [facility] WITH [id number] 05:48:31 Test Item Value Reference Range Interpretation [...] RDW-SD (test code = 49.1 fL 38.5-51.6 01726-3) RDW-CV (test code = 15.5 % 12.1-15.4 H 788-0) PLT (test code = See_Comment H [Automated 777-3) message] The sy stem which generated this result transmitted reference range : 150 - 328 10*3/ ?L. The reference r boubacar was not used to interpret this result as normal/abnormal . MPV (test code = 10.4 fL 9.8-13.0 74063-7) NRBC/100 WBC (test See_Comment [Automat ed code = 3535515070) message] The system which generated this result transmitted reference range : 0.0 - 10.0 /100 WBCs. The refer ence range was not u sed to interpret th is result as normal/abnormal . NRBC x10^3 (test code <0.01 See_Comment [Auto mated = 8075415017) message] The s ystem which generated this result transmitted reference range : 10*3/?L. The reference range was not used to interpret this result as normal/abnormal . GRAN MAT (NEUT) % 64.8 % (test code = 770-8) IMM GRAN % (test code 0.70 % = 6861010633) LYMPH % (test code = 25.2 % 736-9) MONO % (test code = 6.9 % 5905-5) EOS % (test code = 1.9 % 713-8) BASO % (test code = 0.5 % 706-2) GRAN MAT x10^3(ANC) 7.80 10*3/uL 1.99-6.95 H (test code = 4880867446) IMM GRAN x10^3 (test 0.08 10*3/uL 0.00-0.06 H code = 8025043094) LYMPH x10^3 (test code 3.04 10*3/uL 1.09-3.23 = 731-0) MONO x10^3 (test code 0.83 10*3/uL 0.36-1.02 = 742-7) EOS x10^3 (test code = 0.23 10*3/uL 0.06-0.53 711-2) BASO x10^3 (test code 0.06 10*3/uL 0.01-0.09 = 704-7) Lab Interpretation Abnormal (test code = 41340-3) [facility]. METABOLIC PANEL ([id number])2021-08-01 02:19:08 Test Item Value Reference Range Interpretation Comments NA (test code = 136 mmol/L 135-145 6076674849) K (test code = 4.4 mmol/L 3.5-5.0 3064587004) CL (test code = 99 mmol/L 98-108 6035669342) CO2 TOTAL (test code = 25 mmol/L 23-31 9391454130) AGAP (test code = 2-16 3473495775) BUN (test code = 19 mg/dL 7-23 7906217241) GLUCOSE (test code = 103 mg/dL 70-110 8146187942) CREATININE (test code = 0.70 mg/dL 0.60-1.25 2218570591) TOTAL BILI (test code = 0.7 mg/dL 0.1-1.1 6000622090) CALCIUM (test code = 9.2 mg/dL 8.6-10.6 0514827184) T PROTEIN (test code = 9.4 g/dL 6.3-8.2 H 7903827004) ALBUMIN (test code = 4.8 g/dL 3.5-5.0 4326935541) ALK PHOS (test code = 146 U/L 34-122 H 8075248592) ALTv (test code = 75 U/L 5-50 H 1742-6) AST(SGOT) (test code = 37 U/L 13-40 2715871347) eGFR (test code = mL/min/1.73m2 0509239083) ARPITA (test code = ARPITA) Association of [...] tests). Lab Interpretation Abnormal (test code = 82391-8) [facility] Test Item Value Reference Range Interpretation Comments LIPASE (test code = 4215014325) 86 U/L 0-220 Lab Interpretation (test code = Normal 52610-8) [facility] WITH [id number] 01:55:49 Test Item Value Reference Range Interpretation [...] RDW-SD (test code = 48.7 fL 38.5-51.6 76134-1) RDW-CV (test code = 15.4 % 12.1-15.4 788-0) PLT (test code = See_Comment H [Automated 777-3) message] The sy stem which generated this result transmitted reference range : 150 - 328 10*3/ ?L. The reference r boubacar was not used to interpret this result as normal/abnormal . MPV (test code = 9.9 fL 9.8-13.0 82478-9) NRBC/100 WBC (test See_Comment [Automat ed code = 6567296987) message] The system which generated this result transmitted reference range : 0.0 - 10.0 /100 WBCs. The refer ence range was not u sed to interpret th is result as normal/abnormal . NRBC x10^3 (test code <0.01 See_Comment [Auto mated = 7466606393) message] The s ystem which generated this result transmitted reference range : 10*3/?L. The reference range was not used to interpret this result as normal/abnormal . GRAN MAT (NEUT) % 69.8 % (test code = 770-8) IMM GRAN % (test code 0.50 % = 6761805462) LYMPH % (test code = 20.5 % 736-9) MONO % (test code = 6.8 % 5905-5) EOS % (test code = 1.9 % 713-8) BASO % (test code = 0.5 % 706-2) GRAN MAT x10^3(ANC) 7.72 10*3/uL 1.99-6.95 H (test code = 0464529004) IMM GRAN x10^3 (test 0.05 10*3/uL 0.00-0.06 code = 8787584349) LYMPH x10^3 (test code 2.26 10*3/uL 1.09-3.23 = 731-0) MONO x10^3 (test code 0.75 10*3/uL 0.36-1.02 = 742-7) EOS x10^3 (test code = 0.21 10*3/uL 0.06-0.53 711-2) BASO x10^3 (test code 0.06 10*3/uL 0.01-0.09 = 704-7) Lab Interpretation Abnormal (test code = 09064-2) [id number] 23:33:52 Test Item Value Reference Interpretation Comments Range D-DIMER (test code = See_Comment [Autom ated 6768138736) message] The system which generated this result [...] diagnosis. Lab Interpretation Normal (test code = 19597-3) [facility]. METABOLIC PANEL ([id number])2021-07-29 22:42:48 Test Item Value Reference Range Interpretation Comments NA (test code = 135 mmol/L 135-145 6766635208) K (test code = 4.6 mmol/L 3.5-5.0 4071199261) CL (test code = 102 mmol/L 98-108 7311815889) CO2 TOTAL (test code = 24 mmol/L 23-31 2737614507) AGAP (test code = 2-16 1262161300) BUN (test code = 17 mg/dL 7-23 2255960708) GLUCOSE (test code = 107 mg/dL 70-110 6646481831) CREATININE (test code = 0.60 mg/dL 0.60-1.25 6611400675) TOTAL BILI (test code = 1.0 mg/dL 0.1-1.8 5154898308) CALCIUM (test code = 9.4 mg/dL 8.6-10.6 8767028758) T PROTEIN (test code = 8.6 g/dL 6.3-8.2 H 9273221005) ALBUMIN (test code = 4.6 g/dL 3.5-5.0 2225907124) ALK PHOS (test code = 159 U/L 34-122 H 0891797552) ALTv (test code = 77 U/L 5-50 H 2-6) AST(SGOT) (test code = 38 U/L 13-40 1387019570) eGFR (test code = mL/min/1.73m2 4383200178) ARPITA (test code = ARPITA) Association of [...] tests). Lab Interpretation Abnormal (test code = 99991-8) [facility] WITH [id number] 22:30:27 Test Item Value Reference Range Interpretation Comments WBC (test code = See_Comment H [Automated 2790-2) message] The system which generated this result [...] RDW-SD (test code = 48.0 fL 38.5-51.6 95259-9) RDW-CV (test code = 15.1 % 12.1-15.4 788-0) PLT (test code = See_Comment H [Automated 777-3) message] The system which generated this result transmit lester reference range : 150 - 328 10*3/ ?L. The reference range was not u sed to interpret th is result as normal/abnormal . MPV (test code = 10.3 fL 9.8-13.0 97471-0) NRBC/100 WBC (test See_Comment [Automat ed code = 2744312413) message] The system which generated this result transmit lester reference range : 0.0 - 10.0 /100 WBCs. The reference range was not used to interpret this result as normal/abnormal . NRBC x10^3 (test code <0.01 See_Comment [Auto mated = 6010317750) message] The system which generated this result transmit lester reference range : 10*3/?L. The reference range was not used to interpret this result as normal/abnormal . GRAN MAT (NEUT) % 79.9 % (test code = 770-8) IMM GRAN % (test code 0.50 % = 4999100108) LYMPH % (test code = 11.8 % 736-9) MONO % (test code = 6.6 % 5905-5) EOS % (test code = 0.9 % 713-8) BASO % (test code = 0.3 % 706-2) GRAN MAT x10^3(ANC) 10.70 10*3/uL 1.99-6.95 H (test code = 0055791734) IMM GRAN x10^3 (test 0.07 10*3/uL 0.00-0.06 H code = 3515636005) LYMPH x10^3 (test code 1.58 10*3/uL 1.09-3.23 = 731-0) MONO x10^3 (test code 0.89 10*3/uL 0.36-1.02 = 742-7) EOS x10^3 (test code = 0.12 10*3/uL 0.06-0.53 711-2) BASO x10^3 (test code 0.04 10*3/uL 0.01-0.09 = 704-7) Lab Interpretation Abnormal (test code = 18914-5) [facility]. METABOLIC PANEL ([id number])2021-06-07 23:02:15 Test Item Value Reference Range Interpretation Comments NA (test code = 137 mmol/L 135-145 4303582067) K (test code = 4.5 mmol/L 3.5-5.0 6527119624) CL (test code = 109 mmol/L 98-108 H 6831547288) CO2 TOTAL (test code = 22 mmol/L 23-31 L 7899390775) AGAP (test code = 2-16 7862795136) BUN (test code = 7 mg/dL 7-23 8032096442) GLUCOSE (test code = 87 mg/dL 70-110 1604486328) CREATININE (test code = 0.61 mg/dL 0.60-1.25 6487856949) TOTAL BILI (test code = 0.5 mg/dL 0.1-1.0 7268604647) CALCIUM (test code = 9.0 mg/dL 8.6-10.6 8282060408) T PROTEIN (test code = 6.9 g/dL 6.3-8.2 9091414134) ALBUMIN (test code = 3.5 g/dL 3.5-5.0 1551014957) ALK PHOS (test code = 112 U/L 34-122 4472287171) ALTv (test code = 35 U/L 5-50 1742-6) AST(SGOT) (test code = 21 U/L 13-40 6520972268) eGFR (test code = mL/min/1.73m2 9604087059) ARPITA (test code = ARPITA) Association of [...] tests). Lab Interpretation Abnormal (test code = 39984-4) [facility] WITH [id number] 22:51:57 Test Item Value Reference Range Interpretation Comments WBC (test code = See_Comment H [Automated 2679-2) message] The sy stem which generated this result transmitted reference range : 4.20 - 10.70 10*3/?L. The reference range was not used to interpret this result as normal/abnormal . RBC (test code = See_Comment [Automated 529-8) message] The sy stem which generated this [...] RDW-SD (test code = 42.4 fL 38.5-51.6 32421-3) RDW-CV (test code = 13.6 % 12.1-15.4 788-0) PLT (test code = See_Comment H [Automated 777-3) message] The sy stem which generated this result transmitted reference range : 150 - 328 10*3/ ?L. The reference r boubacar was not used to interpret this result as normal/abnormal . MPV (test code = 9.4 fL 9.8-13.0 L 17556-7) NRBC/100 WBC (test See_Comment [Automat ed code = 3987975234) message] The system which generated this result transmitted reference range : 0.0 - 10.0 /100 WBCs. The refer ence range was not u sed to interpret th is result as normal/abnormal . NRBC x10^3 (test code <0.01 See_Comment [Auto mated = 3793199083) message] The s ystem which generated this result transmitted reference range : 10*3/?L. The reference range was not used to interpret this result as normal/abnormal . GRAN MAT (NEUT) % 76.4 % (test code = 770-8) IMM GRAN % (test code 0.40 % = 6944953339) LYMPH % (test code = 16.3 % 736-9) MONO % (test code = 5.6 % 5905-5) EOS % (test code = 1.0 % 713-8) BASO % (test code = 0.3 % 706-2) GRAN MAT x10^3(ANC) 8.81 10*3/uL 1.99-6.95 H (test code = 1069556861) IMM GRAN x10^3 (test 0.05 10*3/uL 0.00-0.06 code = 5437597402) LYMPH x10^3 (test code 1.88 10*3/uL 1.09-3.23 = 731-0) MONO x10^3 (test code 0.64 10*3/uL 0.36-1.02 = 742-7) EOS x10^3 (test code = 0.12 10*3/uL 0.06-0.53 711-2) BASO x10^3 (test code 0.03 10*3/uL 0.01-0.09 = 704-7) Lab Interpretation Abnormal (test code = 57149-7) [facility]2020-11-21 01:01:33 Test Item Value Reference Range Interpretation Comments SARS-CoV-2 Rapid ID NOW Not Detected Not Detected (test code = 94736-0) ARPITA (test code = ARPITA) ID NOW COVID-19 Assay is an isothermal nucleic acid amplification test intended for the qualitative detection of nucleic acid from SARS-CoV-2 viral RNA in nasopharyngeal (SERVICING MANAGER) specimens. It is used under Emergency [...] indicated. Lab Interpretation Normal (test code = 69206-3) [facility] ([id number])2020-11-21 01:00:33 Test Item Value Reference Range Interpretation Comments NA (test code = 140 mmol/L 135-145 2387855706) K (test code = 4.4 mmol/L 3.5-5.0 2768682132) CL (test code = 103 mmol/L 98-108 5236888370) CO2 TOTAL (test code = 28 mmol/L 23-31 0377111173) AGAP (test code = 2-16 5125790853) BUN (test code = 15 mg/dL 7-23 3980648707) GLUCOSE (test code = 85 mg/dL 70-110 7117289788) CREATININE (test code = 0.60 mg/dL 0.60-1.25 8991721877) TOTAL BILI (test code = 1.1 mg/dL 0.1-1.2 1956631302) CALCIUM (test code = 9.0 mg/dL 8.6-10.6 2220855256) T PROTEIN (test code = 7.8 g/dL 6.3-8.2 5475962180) ALBUMIN (test code = 4.0 g/dL 3.5-5.0 7990026814) ALK PHOS (test code = 166 U/L 34-122 H 6220344032) ALTv (test code = 42 U/L 5-50 1742-6) AST(SGOT) (test code = 32 U/L 13-40 0457919955) eGFR (test code = mL/min/1.73m2 9433559692) ARPITA (test code = ARPITA) Association of [...] tests). Lab Interpretation Abnormal (test code = 34511-7) [facility]:00[facility]13 Test Item Value Reference Range Interpretation Comments LIPASE (test code = 4910155497) 57 U/L 0-220 Lab Interpretation (test code = Normal 54798-1) [facility] 00:51:55 Test Item Value Reference Range Interpretation Comments APPEARANCE (test code = Turbid Clear A 3158420050) COLOR (test code = Yellow Yellow 0819223404) PH (test code = 4.8-8.0 0950656605) SP GRAVITY (test code = 1.003-1.030 5253431922) GLU U QUAL (test code = Normal Normal 6243959481) BLOOD (test code = 1+ Negative A 8828668830) KETONES (test code = 20 mg/dL Negative A 9424050240) PROTEIN (test code = 100 mg/dL Negative A 2887-8) UROBILIN (test code = 2.0 mg/dL Normal A 1688546705) BILIRUBIN (test code = Negative Negative 6600792114) NITRITE (test code = Positive Negative A 7367333530) LEUK CHAD (test code = 250/uL Negative A 2745308063) RBC/HPF (test code = See_Comment H [Autom ated message] 8040794082) The system [employer] generated this result transmit lester reference range : 0 - 3 HPF. The refe rence range was not u sed to interpret th is result as normal/abnormal . WBC/HPF (test code = >182 See_Comment H [Autom ated message] 4532257644) The system [employer] generated this result transmit lester reference range : 0 - 5 HPF. The refe rence range was not u sed to interpret th is result as normal/abnormal . BACTERIA (test code = Many Negative A 7709170068) MUCOUS (test code = Moderate Negative LPF A 8537233362) WBC CLUMPS (test code = See_Comment H [Au tomated message] 1158426206) The system [employer] generated this result transmit lester reference range : <=1 HPF. The refere nce range was not u sed to interpret th is result as normal/abnormal . Lab Interpretation (test Abnormal code = 34181-5) [facility] WITH [id number] 00:46:14 Test Item Value Reference Range Interpretation [...] RDW-SD (test code = 47.6 fL 38.5-51.6 19217-3) RDW-CV (test code = 15.2 % 12.1-15.4 788-0) PLT (test code = See_Comment H [Automated 777-3) message] The sy stem which generated this result transmitted reference range : 150 - 328 10*3/ ?L. The reference r boubacar was not used to interpret this result as normal/abnormal . MPV (test code = 9.4 fL 9.8-13.0 L 47296-2) NRBC/100 WBC (test See_Comment [Automat ed code = 0660421786) message] The system which generated this result transmitted reference range : 0.0 - 10.0 /100 WBCs. The refer ence range was not u sed to interpret th is result as normal/abnormal . NRBC x10^3 (test code <0.01 See_Comment [Auto mated = 8806259778) message] The s ystem which generated this result transmitted reference range : 10*3/?L. The reference range was not used to interpret this result as normal/abnormal . GRAN MAT (NEUT) % 61.3 % (test code = 770-8) IMM GRAN % (test code 0.70 % = 3622481853) LYMPH % (test code = 26.4 % 736-9) MONO % (test code = 9.9 % 5905-5) EOS % (test code = 1.3 % 713-8) BASO % (test code = 0.4 % 706-2) GRAN MAT x10^3(ANC) 6.39 10*3/uL 1.99-6.95 (test code = 6535233444) IMM GRAN x10^3 (test 0.07 10*3/uL 0.00-0.06 H code = 2460928026) LYMPH x10^3 (test code 2.75 10*3/uL 1.09-3.23 = 731-0) MONO x10^3 (test code 1.03 10*3/uL 0.36-1.02 H = 742-7) EOS x10^3 (test code = 0.14 10*3/uL 0.06-0.53 711-2) BASO x10^3 (test code 0.04 10*3/uL 0.01-0.09 = 704-7) Lab Interpretation Abnormal (test code = 62950-5) [id number]:03:00 Test Item Value Reference Range Interpretation Comments POC-GLUCOSE METER 140 mg/dL 70-110 H : TESTED A T [facility] ([employer]) (test code = LIZBETH Petit [facility], 153) 48058: Plan Examiner/Techni rose ID = [id number] for AARON COTTRELL POCT-GLUCOSE [id number] 09:15:00 Test Item Value Reference Range Interpretation Comments POC-GLUCOSE METER 142 mg/dL 70-110 H : TESTED A T [facility] ([employer]) (test code = LIZBETH Petit [facility], 153) 33114: Plan Examiner/Techni rose ID = [id number] for AARON COTTRELL POCT-GLUCOSE [id number] 20:56:00 Test Item Value Reference Range Interpretation Comments POC-GLUCOSE METER 134 mg/dL 70-110 H : TESTED A T [facility] (BEAKER) (test code = LIZBETH Petit [facility], 1538) 11458: Plan Examiner/Techni rose ID = [id number] for MG LANZA POCT-GLUCOSE [id number] 16:46:00 Test Item Value Reference Range Interpretation Comments POC-GLUCOSE METER 91 mg/dL 70-110 : TESTED A T [facility] (BEAKER) (test code = LIZBETH Petit [facility], 1538) 38090: Plan Examiner/Techni rose ID = [id number] for AARON CABRAL POCT-GLUCOSE [id number] 12:19:00 Test Item Value Reference Range Interpretation Comments POC-GLUCOSE METER 237 mg/dL 70-110 H : TESTED A T [facility] (BEAKER) (test code = LIZBETH Petit [facility], 153) 28273: Plan Examiner/Techni rose ID = [id number] for AARON COTTRELL MR, EXTREMITY, LOWER, WITHOUT CONTRAST, [id number] 09:12:00FINAL REPORT MRI of the right and [...] Garzaeport Verified Date/Time: 07/29/2019 09:12:01 Reading Location: [facility] B1 [id number] Ortho Consult Reading Room MR, EXTREMITY, LOWER, WITHOUT CONTRAST, [id number] 09:12:00FINAL REPORT MRI of the right and [...] of osteomyelitis. Severe muscle atrophy. Signed:Carly Garza MDReport Verified Date/Time: 07/29/2019 09:12:01 Reading Location: [address] Reading Room POCT-GLUCOSE [id number] 08:47:00 Test Item Value Reference Range Interpretation Comments POC-GLUCOSE METER 264 mg/dL 70-110 H : TESTED A T [facility] (BEAKER) (test code = [facility], 153) 18497: Plan Examiner/Techni rose ID = [id number] for AARON COTTRELL ISLET CELL AB [id number] 07:43:00 Test Item Value Reference Range Interpretation Comments ISLET CELL AB Refer to individual AUTOVERIFICATION (test Islet Cell Ab code = 2556) and/or Islet Cell Ab Titer results. POCT-GLUCOSE [id number] 21:27:00 Test Item Value Reference Range Interpretation Comments POC-GLUCOSE METER 130 mg/dL 70-110 H : TESTED A T [facility] 6720 (BEAKER) (test code = [facility], 153) 11343: Plan Examiner/Techni rose ID = [id number] for FERNIE APARICIO BLOOD [id number] 13:00:00 Test Item Value Reference Range Interpretation Comments CULTURE (BEAKER) (test No growth in 5 days code = 1095) BLOOD [id number] 13:00:00 Test Item Value Reference Range Interpretation Comments CULTURE (BEAKER) (test No growth in 5 days code = 1095) POCT-GLUCOSE [id number] 12:57:00 Test Item Value Reference Range Interpretation Comments POC-GLUCOSE METER 138 mg/dL 70-110 H : TESTED A T [facility] 6720 (BEAKER) (test code = [facility], 153) 91154: Plan Examiner/Techni rose ID = [id number] for JUAN ANTONIO PORTER POCT-GLUCOSE [id number] 08:43:00 Test Item Value Reference Range Interpretation Comments POC-GLUCOSE METER 226 mg/dL 70-110 H : TESTED A T [facility] 6720 (BEAKER) (test code = [facility], 1538) 51435: Plan Examiner/Techni rose ID = [id number] for [place] LLIS, JUAN ANTONIO POCT-GLUCOSE [id number] 21:11:00 Test Item Value Reference Range Interpretation Comments POC-GLUCOSE METER 254 mg/dL 70-110 H : Notified RN/MD: ([facility]) (test code = TESTED AT [facility] 6720 1538) [facility], [address]: Plan Examiner/Techni rose ID = [id number] for FERNIE APARICIO POCT-GLUCOSE [id number] 21:02:00 Test Item Value Reference Range Interpretation Comments POC-GLUCOSE METER 177 mg/dL 70-110 H : TESTED A T [facility] 6720 ([facility]) (test code = [facility], 1538) 13668: Plan Examiner/Techni rose ID = [id number] for [place] LLSPARKLE, JUAN ANTONIO POCT-GLUCOSE [id number] 12:31:00 Test Item Value Reference Range Interpretation Comments POC-GLUCOSE METER 215 mg/dL 70-110 H : TESTED A T [facility] 6720 ([facility]) (test code = [facility], 1538) 25340: Plan Examiner/Techni rose ID = [id number] for [place] LLIS, JUAN ANTONIO WOUND CULTURE + GRAM [id number] 10:10:00 Test Item Value Reference Interpretation Comments Range CULTURE ([facility]) PROTEUS MIRABILIS A 1+ Pro teus [...] gram negative (BEAKER) (test code = rods 172068) GRAM STAIN RESULT 2+ gram positive (BEAKER) (test code = rods 152753) GRAM STAIN RESULT <1+ gram negative (BEAKER) (test code = coccobacilli 539005) GRAM STAIN RESULT 2+ gram positive (BEAKER) (test code = cocci in pairs 942777) POCT-GLUCOSE [id number] 08:52:00 Test Item Value Reference Range Interpretation Comments POC-GLUCOSE METER 209 mg/dL 70-110 H : TESTED A T [facility] 6720 (BEAKER) (test code = [place], 1538) 75966: Plan Examiner/Techni rose ID = [id number] for [place] LLIS, JUAN ANTONIO POCT-GLUCOSE [id number] 21:26:00 Test Item Value Reference Range Interpretation Comments POC-GLUCOSE METER 255 mg/dL 70-110 H : TESTED A T [facility] 6720 (BEAKER) (test code = [facility], [facility]) 69864: Plan Examiner/Techni rose ID = [id number] for CR ISWELL, TIA POCT-GLUCOSE [id number] 17:34:00 Test Item Value Reference Range Interpretation Comments POC-GLUCOSE METER 227 mg/dL 70-110 H : TESTED A T [facility] 6720 (BEAKER) (test code = [facility], [facility]8) 20990: Plan Examiner/Techni rose ID = [id number] for CHAVEZ NNY, LETI POCT-GLUCOSE [id number] 11:28:00 Test Item Value Reference Range Interpretation Comments POC-GLUCOSE METER 282 mg/dL 70-110 H : TESTED A T [facility] 6720 (BEAKER) (test code = [facility], [facility]8) 70155: Plan Examiner/Techni rose ID = [id number] for CHAVEZ NNY, LETI POCT-GLUCOSE [id number] 08:19:00 Test Item Value Reference Range Interpretation Comments POC-GLUCOSE METER 329 mg/dL 70-110 H : TESTED A T [facility] 6720 (BEAKER) (test code = [facility], [facility]8) 08232: Plan Examiner/Techni rose ID = [id number] for AARON COTTRELL POCT-GLUCOSE [id number] 21:32:00 Test Item Value Reference Range Interpretation Comments POC-GLUCOSE METER 275 mg/dL 70-110 H : TESTED A T [facility] 6720 (BEAKER) (test code = [facility], [facility]8) 03887: Plan Examiner/Techni rose ID = [id number] for CR ISWELL, TIA POCT-GLUCOSE [id number] 17:47:00 Test Item Value Reference Range Interpretation Comments POC-GLUCOSE METER 304 mg/dL 70-110 H : TESTED A T [facility] 6720 (BEAKER) (test code = [facility], [facility]) 28045: Plan Examiner/Techni rose ID = [id number] for MA JOHNNIE, ERIN URINE [id number] 15:21:00 Test Item Value Reference Range Interpretation [...] Tobramycin (test code R = 25) POCT-GLUCOSE [id number] 12:16:00 Test Item Value Reference Range Interpretation Comments POC-GLUCOSE METER 337 mg/dL 70-110 H : TESTED A T [facility] 6720 (BEAKER) (test code = [facility], 1538) 29766: Plan Examiner/Techni rose ID = [id number] for ERIN ARIZMENDI BASIC METABOLIC [id number] 10:39:00 Test Item Value Reference Range Interpretation [...] S NOT APPLICABLE FOR DIALYSIS PATIEN TS. Plan Examiner ID - JANET FPOCT-GLUCOSE [id number] 08:29:00 Test Item Value Reference Range Interpretation Comments POC-GLUCOSE METER 395 mg/dL 70-110 H : TESTED A T [facility] 6720 (BEAKER) (test code = [facility] [place], 1538) 68[address]: Plan Examiner/Techni rose ID = [id number] for ERIN ARIZMENDI CBC W/PLT COUNT & AUTO [id number] 06:40:00 Test Item Value Reference Range Interpretation [...] PERCENT (BEAKER) (test code = 2801) POCT-GLUCOSE [id number] 19:55:00 Test Item Value Reference Range Interpretation Comments POC-GLUCOSE METER 369 mg/dL 70-110 H : TESTED A T [facility] 6720 (BEAKER) (test code = [facility], [facility]8) 49213: Plan Examiner/Techni rose ID = [id number] for CR MICK TIA POCT-GLUCOSE [id number] 16:45:00 Test Item Value Reference Range Interpretation Comments POC-GLUCOSE METER 272 mg/dL 70-110 H : TESTED A T [facility] 6720 (BEAKER) (test code = [facility], 1538) 91076: Plan Examiner/Techni rose ID = [id number] for TH FRIEDA HARPER POCT-GLUCOSE [id number] 11:40:00 Test Item Value Reference Range Interpretation Comments POC-GLUCOSE METER 277 mg/dL 70-110 H : TESTED A T [facility] 6720 (BEAKER) (test code = [facility], 1538) 72753: Plan Examiner/Techni rose ID = [id number] for TH MEREDITH FRIEDA BASIC METABOLIC [id number] 10:22:00 Test Item Value Reference Range Interpretation [...] S NOT APPLICABLE FOR DIALYSIS PATIEN TS. Plan Examiner ID - NTPLIPID [id number] 10:17:00 Test Item Value Reference Range Interpretation [...] Optimal <100 Near Optimal 100-129 Borderline 130-159 [id number] Very High >=190 Plan Examiner ID - NTPPOCT-GLUCOSE [id number] 08:28:00 Test Item Value Reference Range Interpretation Comments POC-GLUCOSE METER 388 mg/dL 70-110 H : TESTED A T [facility] 6720 (BEAKER) (test code = [facility] [place], 1538) 22114: Plan Examiner/Techni rose ID = [id number] for AARON COTTRELL HEMOGLOBIN [id number] 07:54:00 Test Item Value Reference Range Interpretation Comments HEMOGLOBIN A1C (BEAKER) (test code = 10.4 % 4.3-6.1 H 368) CBC W/PLT COUNT & AUTO [id number] 05:56:00 Test Item Value Reference Range Interpretation [...] PERCENT (BEAKER) (test code = 2801) POCT-GLUCOSE [id number] 23:47:00 Test Item Value Reference Range Interpretation Comments POC-GLUCOSE METER 359 mg/dL 70-110 H : Notified RN/MD: ([facility]) (test code = TESTED AT [place] [address] 153) [facility], [address]: Plan Examiner/Techni rose ID = [id number] for LATYARI DIAZN ICE POCT-GLUCOSE [id number] 21:13:00 Test Item Value Reference Range Interpretation Comments POC-GLUCOSE METER 315 mg/dL 70-110 H : TESTED A T [facility] 6720 ([facility]) (test code = [facility], 153) 52825: Plan Examiner/Techni rose ID = [id number] for Sm ith, Ana POCT-GLUCOSE [id number] 21:13:00 Test Item Value Reference Range Interpretation Comments POC-GLUCOSE METER 331 mg/dL 70-110 H : TESTED A T [facility] 6720 ([facility]) (test code = [facility], 153) 55363: Plan Examiner/Techni rose ID = [id number] for RO DGERS, LINDSAYECA POCT-GLUCOSE [id number] 10:30:00 Test Item Value Reference Range Interpretation Comments POC-GLUCOSE METER 341 mg/dL 70-110 H : TESTED A T [facility] 6720 ([facility]) (test code = [facility], 153) 57726: Plan Examiner/Techni rose ID = [id number] for Sm ith, Ana CBC W/PLT COUNT & AUTO [id number] 08:48:00 Test Item Value Reference Range Interpretation Comments WHITE BLOOD CELL COUNT ([facility]) 6.7 K/ L 3.5-10.5 (test code = 775) RED BLOOD CELL COUNT ([facility]) 5.28 M/ L 4.63-6.08 (test code = 761) HEMOGLOBIN ([facility]) (test code = 14.6 GM/DL 13.7-17.5 410) HEMATOCRIT ([facility]) (test code = 44.9 % 40.1-51.0 411) MEAN CORPUSCULAR VOLUME ([facility]) 85.0 fL 79.0-92.2 (test code = 753) [...] (BEAKER) (test code = Present 1371) HEMOGLOBIN [id number] 06:39:00 Test Item Value Reference Range Interpretation Comments HEMOGLOBIN A1C (BEAKER) (test code = 10.5 % 4.3-6.1 H 368) LIPID [id number] 04:57:00 Test Item Value Reference Range Interpretation [...] Very High >=190 Specimen moderately lipemicBASIC METABOLIC [id number] 04:56:00 Test Item Value Reference Range Interpretation [...] NOT APPLICABLE FOR DIALYSIS PATIEN TS. POCT-GLUCOSE [id number] 21:53:00 Test Item Value Reference Range Interpretation Comments POC-GLUCOSE METER > mg/dL 70-110 HH : Notified RN/MD: TESTED (BEAKER) (test code = AT [facility] 6720 [employer] [facility] [employer] 1538) [facility], 770 30: Plan Examiner/Techni rose ID = [id number] for DESIRAE MENDOZA U/S, ABDOMINAL, [id number] 19:54:00Reason for exam:->Evaluation of RESERVES CLERK shunt and for possible cyst or pseudocyst Should this be performed at the bedside?->YesFINAL REPORT Limited abdominal ultrasound. CLINICAL HISTORY: Evaluation of RESERVES CLERK shunt for possible cyst or pseudocyst. COMPARISON STUDY: None available. FINDINGS: Sonographic assessment of the abdomen was performed assessing for fluid in the region of the patient's shunts. No fluid collections are seen. However, the study is limited by the patient's body habitus. CT scan would be more sensitive. Signed: Solo Mlies Verified Date/Time: 07/22/2019 19:54:10 Reading Location: [address] Consult Reading Room POCT-GLUCOSE [id number] 19:34:00 Test Item Value Reference Range Interpretation Comments POC-GLUCOSE METER 474 mg/dL 70-110 HH : Notified RN/: (FELICIANO) (test code = TESTED AT [place] [address] 153) [facility], [address]: Plan Examiner/Techni rose ID = [id number] for GERRY BOTELLOUMARILYNN URINALYSIS W/ REFLEX URINE [id number] 17:48:00 Test Item Value Reference Range Interpretation [...] = 2795) CBC W/PLT COUNT & AUTO [id number] 17:38:00 Test Item Value Reference Range Interpretation [...] 3438) Received comment: User comments: Slide comments:POCT-GLUCOSE [id number] 16:27:00 Test Item Value Reference Range Interpretation Comments POC-GLUCOSE METER 424 mg/dL 70-110 HH : Notified RN/MD: (FELICIANO) (test code = TESTED AT [facility] 2430 8994) [facility] [address]: Plan Examiner/Techni rose ID = [id number] for MARILYNN MAO CT, BRAIN, WITHOUT [id number] 15:31:00FINAL REPORT CT, BRAIN, WITHOUT CONTRAST CLINICAL [...] MDReport Verified Date/Time: 07/22/2019 15:31:08 Reading Location: [address] Neuro Reading Room RAD, SHUNT [id number] 15:13:00Reason for exam:->concern for VPS malfunctionFINAL REPORT [...] Location: [facility] Radiology Reading Room POCT-GLUCOSE [id number] 11:38:00 Test Item Value Reference Range Interpretation Comments POC-GLUCOSE METER 394 mg/dL 70-110 H : TESTED A T [facility] 6720 (BEAKER) (test code = [facility]NESTINA Pet[facility], 1538) [address]: Plan Examiner/Techni rose ID = [id number] for MARILYNN MAO HEMOGLOBIN [id number] 09:15:00 Test Item Value Reference Range Interpretation Comments HEMOGLOBIN A1C (BEAKER) (test code = 10.4 % 4.3-6.1 H 368) TSH/FREE T4 IF [id number] 07:54:00 Test Item Value Reference Range Interpretation Comments THYROID STIMULATING HORMONE 1.40 uIU/mL 0.35-4.94 (BEAKER) (test code = 772) POCT-GLUCOSE [id number] 07:48:00 Test Item Value Reference Range Interpretation Comments POC-GLUCOSE METER > mg/dL 70-110 HH : Notified RN/MD: TESTED (BEAKER) (test code = AT [facility] 6720 [employer] [facility] [employer] 1538) [facility], 770 30: Plan Examiner/Techni rose ID = [id number] for MARILYNN SMITH BASIC METABOLIC [id number] 07:44:00 Test Item Value Reference Range Interpretation [...] NOT APPLICABLE FOR DIALYSIS PATIEN TS. LIPID [id number] 07:34:00 Test Item Value Reference Range Interpretation [...] Borderline 130-159 High 160-189 Very High >=190POCT-GLUCOSE [id number] 00:49:00 Test Item Value Reference Range Interpretation Comments POC-GLUCOSE METER 399 mg/dL 70-110 H : [facility] (BEAKER[facility] (test code = [place], 1538) [address]: Plan Examiner/Techni rose ID = [id number] for CHERYLE LINDA, FOOT, 2 VIEWS, [id number] 22:28:00Reason for exam:->osteomyletitis FINAL REPORT TECHNIQUE: Two [...] MDReport Verified Date/Time: 07/21/2019 22:28:25 Reading Location: [facility] Consult Reading Room RAD, FOOT, 2 VIEWS, [id number] 22:28:00Reason for exam:->osteomyletitsFINAL REPORT TECHNIQUE: Two views [...] MDReport Verified Date/Time: 07/21/2019 22:28:25 Reading Location: [address] Consult Reading Room Electronically signed by: MATIAS CARDENAS DO on07/21/2019 10:28 PMPOCT-GLUCOSE [id number] 21:04:00 Test Item Value Reference Range Interpretation Comments POC-GLUCOSE METER 430 mg/dL 70-110 HH : Notified RN/MD: (FELICIANO) (test code = TESTED AT [facility] 6720 1538) [facility], [address]: Plan Examiner/Techni rose ID = [id number] for ALBERTO OLIVER ERTAPENEM:SUSC:PT:ISOLATE:ORDQN:[id number] 16:48:00 Test Item Value Reference Range Interpretation Comments Culture: Urine (test >100,000 CFU/mL Proteus code = Culture: mirabilis 10,000 - Urine) 50,000 CFU/mL Skin Mar[facility] HermannERTAPENEM:SUSC:PT:ISOLATE:ORDQN:[id number] 16:48:00 Test Item Value Reference Range Interpretation Comments Proteus mirabilis (test Proteus mirabilis code = Proteus mirabilis) [facility] [id number] 16:48:00 Test Item Value Reference Range Interpretation Comments UA Nitrite (test code Negative (05/22/18 10:48 = UA Nitrite) AM) [facility] [id number] 16:48:00 Test Item Value Reference Range Interpretation Comments UA Bili (test code = Negative *NA*(05/22/18 UA Bili) 10:48 AM) [facility] [id number] 16:48:00 Test Item Value Reference Range Interpretation Comments UA Ketones (test code Negative *NA*(05/22/18 = UA Ketones) 10:48 AM) [facility] AND [id number] 16:48:00 Test Item Value Reference Range Interpretation Comments UA Blood (test code = Trace *ABN*(05/22/18 UA Blood) 10:48 AM) [facility] AND [id number] 16:48:00 Test Item Value Reference Range Interpretation Comments UA Urobilinogen (test code = UA 0.2 0.1-1.0 Urobilinogen) [facility] AND [id number] 16:48:00 Test Item Value Reference Range Interpretation Comments UA Leuk Est (test code Large *ABN*(05/22/18 = UA Leuk Est) 10:48 AM) [facility] AND [id number] 16:48:00 Test Item Value Reference Range Interpretation Comments UA Protein (test code Negative (05/22/18 10:48 = UA Protein) AM) [facility] AND [id number] 16:48:00 Test Item Value Reference Range Interpretation Comments UA Glucose (test code Negative (05/22/18 10:48 = UA Glucose) AM) [facility] AND [id number] 16:48:00 Test Item Value Reference Range Interpretation Comments UA pH (test code = UA pH) 7.0 1 5.0-8.0 [facility] AND [id number] 16:48:00 Test Item Value Reference Range Interpretation Comments UA Spec Grav (test code = UA Spec 1.015 1 Grav) [facility] AND [id number] 16:48:00 Test Item Value Reference Range Interpretation Comments UA Color (test code = Yellow *NA*(05/22/18 UA Color) 10:48 AM) [facility] AND [id number] 16:48:00 Test Item Value Reference Range Interpretation Comments UA Turbidity (test code = Clear (05/22/18 10:48 UA Turbidity) AM) [facility] AND [id number] 16:48:00 Test Item Value Reference Range Interpretation Comments UA Mucus (test code = UA Mucus) Few /[facility]F [facility] [id number] 16:48:00 Test Item Value Reference Range Interpretation Comments UA Bacteria (test code = UA Few /HPF Bacteria) [facility] [id number] 16:48:00 Test Item Value Reference Range Interpretation Comments UA RBC (test code = 0-2 /HPF See_Comment [Automa lester message] The UA RBC) system which ge nerated this result tra nsmitted reference range : <=2. The reference range was not used to interpr et this result as dany l/abnormal. [facility] AND [id number] 16:48:00 Test Item Value Reference Range Interpretation Comments UA Sq Epi (test code = None Seen (05/22/18 UA Sq Epi) 10:48 AM) [facility] AND [id number] 16:48:00 Test Item Value Reference Range Interpretation Comments UA WBC (test code = UA WBC) 51-100 /HPF [facility]:SUSC:PT:ISOLATE:ORDQN:[id number] 16:48:00 Test Item Value Reference Range Interpretation Comments Culture: Urine (test >100,000 CFU/mL Proteus code = Culture: mirabilis 10,000 - Urine) 50,000 CFU/mL Skin [facility]annERT[facility]ENEM:SUSC:PT:ISOLATE:ORDQN:[id number] 16:48:00 Test Item Value Reference Range Interpretation Comments Proteus mirabilis (test Proteus mirabilis code = Proteus mirabilis) [facility] AND [id number] 16:48:00 Test Item Value Reference Range Interpretation Comments UA Nitrite (test code Negative (05/22/18 10:48 = UA Nitrite) AM) [facility] AND [id number] 16:48:00 Test Item Value Reference Range Interpretation Comments UA Bili (test code = Negative *NA*(05/22/18 UA Bili) 10:48 AM) [facility] AND [id number] 16:48:00 Test Item Value Reference Range Interpretation Comments UA Ketones (test code Negative *NA*(05/22/18 = UA Ketones) 10:48 AM) [facility] AND [id number] 16:48:00 Test Item Value Reference Range Interpretation Comments UA Blood (test code = Trace *ABN*(05/22/18 UA Blood) 10:48 AM) [facility] AND [id number] 16:48:00 Test Item Value Reference Range Interpretation Comments UA Urobilinogen (test code = UA 0.2 0.1-1.0 Urobilinogen) [facility] AND [id number] 16:48:00 Test Item Value Reference Range Interpretation Comments UA Leuk Est (test code Large *ABN*(05/22/18 = UA Leuk Est) 10:48 AM) [facility] AND [id number] 16:48:00 Test Item Value Reference Range Interpretation Comments UA Protein (test code Negative (05/22/18 10:48 = UA Protein) AM) [facility] AND [id number] 16:48:00 Test Item Value Reference Range Interpretation Comments UA Glucose (test code Negative (05/22/18 10:48 = UA Glucose) AM) [facility] AND [id number] 16:48:00 Test Item Value Reference Range Interpretation Comments UA pH (test code = UA pH) 7.0 1 5.0-8.0 [facility] AND [id number] 16:48:00 Test Item Value Reference Range Interpretation Comments UA Spec Grav (test code = UA Spec 1.015 1 Grav) [facility] AND [id number] 16:48:00 Test Item Value Reference Range Interpretation Comments UA Color (test code = Yellow *NA*(05/22/18 UA Color) 10:48 AM) [facility] AND [id number] 16:48:00 Test Item Value Reference Range Interpretation Comments UA Turbidity (test code = Clear (05/22/18 10:48 UA Turbidity) AM) [facility] AND [id number] 16:48:00 Test Item Value Reference Range Interpretation Comments UA Mucus (test code = UA Mucus) Few /LPF [facility] AND [id number] 16:48:00 Test Item Value Reference Range Interpretation Comments UA Bacteria (test code = UA Few /HPF Bacteria) [facility] AND [id number] 16:48:00 Test Item Value Reference Range Interpretation Comments UA RBC (test code = 0-2 /HPF See_Comment [Automa lester message] The UA RBC) system which ge nerated this result tra nsmitted reference range : <=2. The reference range was not used to interpr et this result as dany l/abnormal. [facility] AND [id number] 16:48:00 Test Item Value Reference Range Interpretation Comments UA Sq Epi (test code = None Seen (05/22/18 UA Sq Epi) 10:48 AM) [facility] AND [id number] 16:48:00 Test Item Value Reference Range Interpretation Comments UA WBC (test code = UA WBC) 51-100 /HPF [facility]SUSC:PT:ISOLATE:ORDQN:[id number] 16:48:00 Test Item Value Reference Range Interpretation Comments Culture: Urine (test >100,000 CFU/mL Proteus code = Culture: mirabilis 10,000 - Urine) 50,000 CFU/mL Skin [facility]ilee [facility]ENEM:SUSC:PT:ISOLATE:ORDQN:[id number] 16:48:00 Test Item Value Reference Range Interpretation Comments Proteus mirabilis (test Proteus mirabilis code = Proteus mirabilis) [facility] AND [id number] 16:48:00 Test Item Value Reference Range Interpretation Comments UA Nitrite (test code Negative (05/22/18 10:48 = UA Nitrite) AM) [facility] AND [id number] 16:48:00 Test Item Value Reference Range Interpretation Comments UA Bili (test code = Negative *NA*(05/22/18 UA Bili) 10:48 AM) [facility] AND [id number] 16:48:00 Test Item Value Reference Range Interpretation Comments UA Ketones (test code Negative *NA*(05/22/18 = UA Ketones) 10:48 AM) [facility] AND [id number] 16:48:00 Test Item Value Reference Range Interpretation Comments UA Blood (test code = Trace *ABN*(05/22/18 UA Blood) 10:48 AM) [facility] AND [id number] 16:48:00 Test Item Value Reference Range Interpretation Comments UA Urobilinogen (test code = UA 0.2 0.1-1.0 Urobilinogen) [facility] AND [id number] 16:48:00 Test Item Value Reference Range Interpretation Comments UA Leuk Est (test code Large *ABN*(05/22/18 = UA Leuk Est) 10:48 AM) [facility] AND [id number] 16:48:00 Test Item Value Reference Range Interpretation Comments UA Protein (test code Negative (05/22/18 10:48 = UA Protein) AM) [facility] AND [id number] 16:48:00 Test Item Value Reference Range Interpretation Comments UA Glucose (test code Negative (05/22/18 10:48 = UA Glucose) AM) [facility] AND [id number] 16:48:00 Test Item Value Reference Range Interpretation Comments UA pH (test code = UA pH) 7.0 1 5.0-8.0 [facility] AND [id number] 16:48:00 Test Item Value Reference Range Interpretation Comments UA Spec Grav (test code = UA Spec 1.015 1 Grav) [facility] AND [id number] 16:48:00 Test Item Value Reference Range Interpretation Comments UA Color (test code = Yellow *NA*(05/22/18 UA Color) 10:48 AM) [facility] AND [id number] 16:48:00 Test Item Value Reference Range Interpretation Comments UA Turbidity (test code = Clear (05/22/18 10:48 UA Turbidity) AM) [facility] AND [id number] 16:48:00 Test Item Value Reference Range Interpretation Comments UA Mucus (test code = UA Mucus) Few /LPF [facility] AND [id number] 16:48:00 Test Item Value Reference Range Interpretation Comments UA Bacteria (test code = UA Few /HPF Bacteria) [facility] AND [id number] 16:48:00 Test Item Value Reference Range Interpretation Comments UA RBC (test code = 0-2 /HPF See_Comment [Automa lester message] The UA RBC) system which ge nerated this result tra nsmitted reference range : <=2. The reference range was not used to interpr et this result as dany l/abnormal. [facility] AND [id number] 16:48:00 Test Item Value Reference Range Interpretation Comments UA Sq Epi (test code = None Seen (05/22/18 UA Sq Epi) 10:48 AM) [facility] AND [id number] 16:48:00 Test Item Value Reference Range Interpretation Comments UA WBC (test code = UA WBC) 51-100 /HPF [facility]ISOLATE:ORDQN:[id number] 16:48:00 Test Item Value Reference Range Interpretation Comments Culture: Urine (test >100,000 CFU/mL Proteus code = Culture: mirabilis 10,000 - Urine) 50,000 CFU/mL Skin [facility]:SUSC:PT:ISOLATE:ORDQN:[id number] 16:48:00 Test Item Value Reference Range Interpretation Comments Proteus mirabilis (test Proteus mirabilis code = Proteus mirabilis) [facility] AND [id number] 16:48:00 Test Item Value Reference Range Interpretation Comments UA Nitrite (test code Negative (05/22/18 10:48 = UA Nitrite) AM) [facility] AND [id number] 16:48:00 Test Item Value Reference Range Interpretation Comments UA Bili (test code = Negative *NA*(05/22/18 UA Bili) 10:48 AM) [facility] AND [id number] 16:48:00 Test Item Value Reference Range Interpretation Comments UA Ketones (test code Negative *NA*(05/22/18 = UA Ketones) 10:48 AM) [facility] AND [id number] 16:48:00 Test Item Value Reference Range Interpretation Comments UA Blood (test code = Trace *ABN*(05/22/18 UA Blood) 10:48 AM) [facility] AND [id number] 16:48:00 Test Item Value Reference Range Interpretation Comments UA Urobilinogen (test code = UA 0.2 0.1-1.0 Urobilinogen) [facility] AND [id number] 16:48:00 Test Item Value Reference Range Interpretation Comments UA Leuk Est (test code Large *ABN*(05/22/18 = UA Leuk Est) 10:48 AM) [facility] AND [id number] 16:48:00 Test Item Value Reference Range Interpretation Comments UA Protein (test code Negative (05/22/18 10:48 = UA Protein) AM) [facility] AND [id number] 16:48:00 Test Item Value Reference Range Interpretation Comments UA Glucose (test code Negative (05/22/18 10:48 = UA Glucose) AM) [facility] AND [id number] 16:48:00 Test Item Value Reference Range Interpretation Comments UA pH (test code = UA pH) 7.0 1 5.0-8.0 [facility] AND [id number] 16:48:00 Test Item Value Reference Range Interpretation Comments UA Spec Grav (test code = UA Spec 1.015 1 Grav) [facility] AND [id number] 16:48:00 Test Item Value Reference Range Interpretation Comments UA Color (test code = Yellow *NA*(05/22/18 UA Color) 10:48 AM) [facility] AND [id number] 16:48:00 Test Item Value Reference Range Interpretation Comments UA Turbidity (test code = Clear (05/22/18 10:48 UA Turbidity) AM) [facility] AND [id number] 16:48:00 Test Item Value Reference Range Interpretation Comments UA Mucus (test code = UA Mucus) Few /LPF [facility] AND [id number] 16:48:00 Test Item Value Reference Range Interpretation Comments UA Bacteria (test code = UA Few /HPF Bacteria) [facility] AND [id number] 16:48:00 Test Item Value Reference Range Interpretation Comments UA RBC (test code = 0-2 /HPF See_Comment [Automa lester message] The UA RBC) system which ge nerated this result tra nsmitted reference range : <=2. The reference range was not used to interpr et this result as dany l/abnormal. [facility] AND [id number] 16:48:00 Test Item Value Reference Range Interpretation Comments UA Sq Epi (test code = None Seen (05/22/18 UA Sq Epi) 10:48 AM) [facility] AND [id number] 16:48:00 Test Item Value Reference Range Interpretation Comments UA WBC (test code = UA WBC) 51-100 /HPF [facility] [id number] 11:57:00 Test Item Value Reference Range Interpretation Comments Antibody Scrn (test Negative (05/22/18 5:57 code = Antibody Scrn) AM) [facility] [id number] 11:57:00 Test Item Value Reference Range Interpretation Comments ABO/Rh (test code = ABO/Rh) AB POS [facility] CenterKknmtfsOVBERDFYQI9211-41-95 11:57:00 Test Item Value Reference Range Interpretation Comments PTT (test code = PTT) 33.4 s 22.9-35.8 [facility] CenterSvftpckLWWEPVMQNB7290-19-19 11:57:00 Test Item Value Reference Range Interpretation Comments PT (test code = PT) 13.7 s 12.0-14.7 [facility] CenterHdxyjkvGVFJZKOWFM6953-20-52 11:57:00 Test Item Value Reference Range Interpretation Comments INR (test code = INR) 1.05 1 0.85-1.17 [facility] [id number] 11:57:00 Test Item Value Reference Range Interpretation Comments Antibody Scrn (test Negative (05/22/18 5:57 code = Antibody Scrn) AM) [facility] [id number] 11:57:00 Test Item Value Reference Range Interpretation Comments ABO/Rh (test code = ABO/Rh) AB POS [facility] CenterX[id number] 11:57:00 Test Item Value Reference Range Interpretation Comments PTT (test code = PTT) 33.4 s 22.9-35.8 [facility] CenterZawjbumNBSPSKBPNG8996-98-36 11:57:00 Test Item Value Reference Range Interpretation Comments PT (test code = PT) 13.7 s 12.0-14.7 [facility] CenterHmmdsaqLGOMVELXCZ6877-95-55 11:57:00 Test Item Value Reference Range Interpretation Comments INR (test code = INR) 1.05 1 0.85-1.17 [facility] [id number] 11:57:00 Test Item Value Reference Range Interpretation Comments Antibody Scrn (test Negative (05/22/18 5:57 code = Antibody Scrn) AM) [facility] [id number] 11:57:00 Test Item Value Reference Range Interpretation Comments ABO/Rh (test code = ABO/Rh) AB POS [id number] 11:57:00 Test Item Value Reference Range Interpretation Comments PTT (test code = PTT) 33.4 s 22.9-35.8 [facility]WvhnpjhFTPZQTYINQ6980-55-34 11:57:00 Test Item Value Reference Range Interpretation Comments PT (test code = PT) 13.7 s 12.0-14.7 [facility] CenterUjjlsktCMWPNAEWKZ8652-39-74 11:57:00 Test Item Value Reference Range Interpretation Comments INR (test code = INR) 1.05 1 0.85-1.17 [facility] [employer] [id number] 11:57:00 Test Item Value Reference Range Interpretation Comments Antibody Scrn (test Negative (05/22/18 5:57 code = Antibody Scrn) AM) [facility] [employer] [facility] [id number] 11:57:00 Test Item Value Reference Range Interpretation Comments ABO/Rh (test code = ABO/Rh) AB POS [facility] CenterRajuwkrQOSTEEAWBB3574-62-99 11:57:00 Test Item Value Reference Range Interpretation Comments PTT (test code = PTT) 33.4 s 22.9-35.8 [facility] CenterOccseplWVWYLUZHOW8464-59-88 11:57:00 Test Item Value Reference Range Interpretation Comments PT (test code = PT) 13.7 s 12.0-14.7 [facility] CenterAfvudobNSEIUCUHUO2641-37-40 11:57:00 Test Item Value Reference Range Interpretation Comments INR (test code = INR) 1.05 1 0.85-1.17 [facility] [employer] [id number] 10:50:01 Test Item Value Reference Range Interpretation Comments eGFR (test code = eGFR) 133 [facility] CenterABA English [id number] 10:50:01 Test Item Value Reference Range Interpretation Comments Calcium Lvl (test code = Calcium Lvl) 9.4 8.5-10.5 [facility] [employer] [id number] 10:50:01 Test Item Value Reference Range Interpretation Comments CO2 (test code = CO2) 28 24-32 [facility] [id number] 10:50:01 Test Item Value Reference Range Interpretation Comments BUN (test code = BUN) 14 7-22 [facility] [id number] 10:50:01 Test Item Value Reference Range Interpretation Comments Glucose Lvl (test code = Glucose Lvl) 89 70-99 [facility]2018-11-08 10:50:01 Test Item Value Reference Range Interpretation Comments Chloride Lvl (test code = Chloride Lvl) 104 95-109 [facility]2018-11-08 10:50:01 Test Item Value Reference Range Interpretation Comments Potassium Lvl (test code = Potassium 4.2 3.5-5.1 Lvl) [facility]2018-11-08 10:50:01 Test Item Value Reference Range Interpretation Comments Sodium Lvl (test code = Sodium Lvl) 137 135-145 [facility]2018-11-08 10:50:01 Test Item Value Reference Range Interpretation Comments Creatinine Lvl (test code = Creatinine 0.85 0.50-1.40 Lvl) [facility]2018-11-08 10:50:01 Test Item Value Reference Range Interpretation Comments AGAP (test code = AGAP) 9.2 10.0-20.0 [facility] CenterExnsumsPHCGRAOQJH9055-72-83 10:50:01 Test Item Value Reference Range Interpretation Comments ACT (TEG) Rapid (test code = ACT (TEG) 136 s 86-118 Rapid) [facility] [id number] 10:50:01 Test Item Value Reference Range Interpretation Comments Split Point Rapid (test code = Split 0.6 min Point Rapid) [facility] CenterCuabxjeQSLPYYOURB8889-40-26 10:50:01 Test Item Value Reference Range Interpretation Comments R-time Rapid (test code = R-time 0.9 min 0.4-0.7 Rapid) [facility] CenterIdndgxfBUUIZTZUEI7692-16-91 10:50:01 Test Item Value Reference Range Interpretation Comments K-time Rapid (test code = K-time 1.4 min 0.6-2.3 Rapid) [facility] CenterCkkkxlmDNNAVOYAXT8769-40-85 10:50:01 Test Item Value Reference Range Interpretation Comments Angle Rapid (test code = Angle 71 degrees 64-80 Rapid) [facility] CenterJcybghoLWIWHCIUPJ1170-23-43 10:50:01 Test Item Value Reference Range Interpretation Comments G-value Rapid (test code = G-value 12.7 5.0-11.6 Rapid) [facility] CenterMvwcorkNEENRUPPOP1581-97-17 10:50:01 Test Item Value Reference Range Interpretation Comments Max Amplitude Rapid (test code = Max 72 mm 52-71 Amplitude Rapid) [facility] CenterLqfdpmqSKWSZFHYCY3873-32-93 10:50:01 Test Item Value Reference Range Interpretation Comments Estimated % Lysis Rapid 0.1 See_Comment [Au tomated message] The (test code = Estimated syste m which generated % Lysis Rapid) this result t ransmitted reference range : <=7.5. The reference r boubacar was not used to int erpret this result as normal/abnormal . [facility] CenterOxdrsjbLIPNBEFEZT2207-65-54 10:50:01 Test Item Value Reference Range Interpretation Comments Platelet (test code = Platelet) 367 133-450 [facility] CenterFobhlzsFDNNDSCPBW9029-57-97 10:50:01 Test Item Value Reference Range Interpretation Comments MPV (test code = MPV) 7.8 7.4-10.4 [facility] CenterOtoyzzjEQOCVMSJVX7580-60-78 10:50:01 Test Item Value Reference Range Interpretation Comments MCH (test code = MCH) 27.4 pg 27.0-31.0 [facility] CenterOvwpwizUFSGZLVMEK6971-63-42 10:50:01 Test Item Value Reference Range Interpretation Comments MCV (test code = MCV) 80.7 80.0-94.0 [facility] CenterSxjpbdcYJTDXSHXAX8684-60-79 10:50:01 Test Item Value Reference Range Interpretation Comments MCHC (test code = MCHC) 34.0 32.0-36.0 [facility] CenterHqkdzulEMNTMPURVE5456-38-93 10:50:01 Test Item Value Reference Range Interpretation Comments RDW (test code = RDW) 18.9 11.5-14.5 [facility] CenterFvznlhfLSZNFKLXNY7853-42-53 10:50:01 Test Item Value Reference Range Interpretation Comments Hct (test code = Hct) 43.3 42.0-54.0 [facility] CenterSriaaxsEJRUMFAAOE2087-78-15 10:50:01 Test Item Value Reference Range Interpretation Comments WBC (test code = WBC) 9.3 3.7-10.4 [facility] CenterUamarssYFDNQYXRVO1434-04-86 10:50:01 Test Item Value Reference Range Interpretation Comments Hgb (test code = Hgb) 14.7 14.0-18.0 [facility] CenterRaqitdqPSDSYFCDWA5822-37-25 10:50:01 Test Item Value Reference Range Interpretation Comments RBC (test code = RBC) 5.36 4.70-6.10 [facility] CenterInvhtdaCRBTYBXUKF6200-47-19 10:50:01 Test Item Value Reference Range Interpretation Comments Eosinophils # (test code 0.2 See_Comment [A utomated message] The = Eosinophils #) system whic h generated this result tra nsmitted reference range : <=0.5. The reference r boubacar was not used to int erpret this result as normal/abnormal . [facility] CenterXiiqjgkEYKSAGBHFU9785-50-02 10:50:01 Test Item Value Reference Range Interpretation Comments Basophils # (test code 0.1 See_Comment [Aut omated message] The = Basophils #) system which generated this result tra nsmitted reference range : <=0.2. The reference r boubacar was not used to int erpret this result as normal/abnormal . [facility] CenterLvmnyxfSQNCUPJJGW3405-49-37 10:50:01 Test Item Value Reference Range Interpretation Comments Lymphocytes # (test code = Lymphocytes 1.8 1.0-5.5 #) [facility] CenterYspzstfHGIYIHVOQC2014-49-66 10:50:01 Test Item Value Reference Range Interpretation Comments Monocytes # (test code 0.9 See_Comment [Aut omated message] The = Monocytes #) system which generated this result tra nsmitted reference range : <=0.8. The reference r boubacar was not used to int erpret this result as normal/abnormal . [facility] CenterBvdvixrAZJDMLYWHX3939-85-28 10:50:01 Test Item Value Reference Range Interpretation Comments Neutrophils # (test code = Neutrophils 6.3 1.5-8.1 #) [facility] CenterFefxoxvFMLPPIIPWS9729-13-25 10:50:01 Test Item Value Reference Range Interpretation Comments Eosinophils (test code = 2.0 See_Comment [A utomated message] The Eosinophils) system which ge nerated this result tra nsmitted reference range : <=4.0. The reference r boubacar was not used to int erpret this result as normal/abnormal . [facility] CenterMgqairmHDFVCLQLCH7806-72-75 10:50:01 Test Item Value Reference Range Interpretation Comments Segs (test code = Segs) 67.4 45.0-75.0 [facility] CenterIkwbwzxFFMPLPCWEQ1709-15-40 10:50:01 Test Item Value Reference Range Interpretation Comments Lymphocytes (test code = Lymphocytes) 19.9 20.0-40.0 [facility] CenterEpcgeiqKEVFQPQVVW6053-42-70 10:50:01 Test Item Value Reference Range Interpretation Comments Basophils (test code = 1.0 See_Comment [Aut omated message] The Basophils) system which ge nerated this result tra nsmitted reference range : <=1.0. The reference r boubacar was not used to int erpret this result as normal/abnormal . [facility] CenterRoivltkFQVJHFSYZK9093-48-16 10:50:01 Test Item Value Reference Range Interpretation Comments Monocytes (test code = Monocytes) 9.7 2.0-12.0 [facility]2018-11-08 10:50:01 Test Item Value Reference Range Interpretation Comments eGFR (test code = eGFR) 133 [facility]2018-11-08 10:50:01 Test Item Value Reference Range Interpretation Comments Calcium Lvl (test code = Calcium Lvl) 9.4 8.5-10.5 [facility]2018-11-08 10:50:01 Test Item Value Reference Range Interpretation Comments CO2 (test code = CO2) 28 24-32 [facility]2018-11-08 10:50:01 Test Item Value Reference Range Interpretation Comments BUN (test code = BUN) 14 7-22 [facility]2018-11-08 10:50:01 Test Item Value Reference Range Interpretation Comments Glucose Lvl (test code = Glucose Lvl) 89 70-99 [facility]2018-11-08 10:50:01 Test Item Value Reference Range Interpretation Comments Chloride Lvl (test code = Chloride Lvl) 104 95-109 [facility]2018-11-08 10:50:01 Test Item Value Reference Range Interpretation Comments Potassium Lvl (test code = Potassium 4.2 3.5-5.1 Lvl) [facility]2018-11-08 10:50:01 Test Item Value Reference Range Interpretation Comments Sodium Lvl (test code = Sodium Lvl) 137 135-145 [facility]2018-11-08 10:50:01 Test Item Value Reference Range Interpretation Comments Creatinine Lvl (test code = Creatinine 0.85 0.50-1.40 Lvl) [facility]2018-11-08 10:50:01 Test Item Value Reference Range Interpretation Comments AGAP (test code = AGAP) 9.2 10.0-20.0 [facility] CenterBradzezTOFXLMAJEH8962-49-07 10:50:01 Test Item Value Reference Range Interpretation Comments ACT (TEG) Rapid (test code = ACT (TEG) 136 s 86-118 Rapid) [facility] CenterWbkcrklXNXDQWAFIM0839-57-02 10:50:01 Test Item Value Reference Range Interpretation Comments Split Point Rapid (test code = Split 0.6 min Point Rapid) [facility] CenterIpqflwcIUCVZKYXIH0406-31-62 10:50:01 Test Item Value Reference Range Interpretation Comments R-time Rapid (test code = R-time 0.9 min 0.4-0.7 Rapid) [facility] CenterEaunynfQVKVGTZSDT6556-78-81 10:50:01 Test Item Value Reference Range Interpretation Comments K-time Rapid (test code = K-time 1.4 min 0.6-2.3 Rapid) [place] [address]-11-08 10:50:01 Test Item Value Reference Range Interpretation Comments Angle Rapid (test code = Angle 71 degrees 64-80 Rapid) [facility] CenterKjsovswWDLODGXNCN6811-33-18 10:50:01 Test Item Value Reference Range Interpretation Comments G-value Rapid (test code = G-value 12.7 5.0-11.6 Rapid) [facility] CenterLxhbofsDTWKPSZDCO3297-23-81 10:50:01 Test Item Value Reference Range Interpretation Comments Max Amplitude Rapid (test code = Max 72 mm 52-71 Amplitude Rapid) [facility] CenterQzyfpxqPPKUVVNFVH1688-65-89 10:50:01 Test Item Value Reference Range Interpretation Comments Estimated % Lysis Rapid 0.1 See_Comment [Au tomated message] The (test code = Estimated syste m which generated % Lysis Rapid) this result t ransmitted reference range : <=7.5. The reference r boubacar was not used to int erpret this result as normal/abnormal . [facility] CenterWidxhcoJZWVNHUNPV2377-19-77 10:50:01 Test Item Value Reference Range Interpretation Comments Platelet (test code = Platelet) 367 133-450 [facility] CenterMmdxnmbMWTXJDFTSO2265-90-71 10:50:01 Test Item Value Reference Range Interpretation Comments MPV (test code = MPV) 7.8 7.4-10.4 [facility] CenterRkudklsFUQHTWJWAA0039-87-52 10:50:01 Test Item Value Reference Range Interpretation Comments MCH (test code = MCH) 27.4 pg 27.0-31.0 [facility] CenterUkmbvldSOMUEMJLPS0507-82-87 10:50:01 Test Item Value Reference Range Interpretation Comments MCV (test code = MCV) 80.7 80.0-94.0 [facility] CenterBsxiobkNCCDLZNNYC9697-48-18 10:50:01 Test Item Value Reference Range Interpretation Comments MCHC (test code = MCHC) 34.0 32.0-36.0 [facility] CenterDhrenvjANRNFBSHTW7158-00-72 10:50:01 Test Item Value Reference Range Interpretation Comments RDW (test code = RDW) 18.9 11.5-14.5 [facility] CenterPuzutvhXUJCLUVNQR5935-00-84 10:50:01 Test Item Value Reference Range Interpretation Comments Hct (test code = Hct) 43.3 42.0-54.0 [facility] CenterRkjrldmNWSLZCRRDW8537-55-49 10:50:01 Test Item Value Reference Range Interpretation Comments WBC (test code = WBC) 9.3 3.7-10.4 [facility] CenterFnlkfzyBYKMKTFKXW9094-33-03 10:50:01 Test Item Value Reference Range Interpretation Comments Hgb (test code = Hgb) 14.7 14.0-18.0 [facility] CenterZymjvzfHRKROGYLBL6028-82-22 10:50:01 Test Item Value Reference Range Interpretation Comments RBC (test code = RBC) 5.36 4.70-6.10 [facility] CenterUmawppiGCYZJSOWTW5705-74-47 10:50:01 Test Item Value Reference Range Interpretation Comments Eosinophils # (test code 0.2 See_Comment [A utomated message] The = Eosinophils #) system wh h generated this result tra nsmitted reference range : <=0.5. The reference r boubacar was not used to int erpret this result as normal/abnormal . [facility] CenterFzoknchGXTMDZOYMN6923-77-94 10:50:01 Test Item Value Reference Range Interpretation Comments Basophils # (test code 0.1 See_Comment [Aut omated message] The = Basophils #) system which generated this result tra nsmitted reference range : <=0.2. The reference r boubacar was not used to int erpret this result as normal/abnormal . [facility] CenterOoveltvYTRUIVQKOA8760-15-12 10:50:01 Test Item Value Reference Range Interpretation Comments Lymphocytes # (test code = Lymphocytes 1.8 1.0-5.5 #) [facility] CenterTctxzryVUUIEXHAJE1620-42-52 10:50:01 Test Item Value Reference Range Interpretation Comments Monocytes # (test code 0.9 See_Comment [Aut omated message] The = Monocytes #) system which generated this result tra nsmitted reference range : <=0.8. The reference r boubacar was not used to int erpret this result as normal/abnormal . [facility] CenterSnxbdkwNBEWTABCKF8321-30-31 10:50:01 Test Item Value Reference Range Interpretation Comments Neutrophils # (test code = Neutrophils 6.3 1.5-8.1 #) [facility] CenterGuqcywjWZZRVVOWHL2596-82-89 10:50:01 Test Item Value Reference Range Interpretation Comments Eosinophils (test code = 2.0 See_Comment [A utomated message] The Eosinophils) system which ge nerated this result tra nsmitted reference range : <=4.0. The reference r boubacar was not used to int erpret this result as normal/abnormal . [facility] CenterMwphvzxQORFYJRPBG6149-02-76 10:50:01 Test Item Value Reference Range Interpretation Comments Segs (test code = Segs) 67.4 45.0-75.0 [facility] CenterLanlfmjVZCHQTWDRM5960-34-42 10:50:01 Test Item Value Reference Range Interpretation Comments Lymphocytes (test code = Lymphocytes) 19.9 20.0-40.0 [facility] CenterPmeuqvzMTQZHETMQS9224-33-04 10:50:01 Test Item Value Reference Range Interpretation Comments Basophils (test code = 1.0 See_Comment [Aut omated message] The Basophils) system which ge nerated this result tra nsmitted reference range : <=1.0. The reference r boubacar was not used to int erpret this result as normal/abnormal . [facility] CenterFffjdfjHLEXOEMRVV2057-12-15 10:50:01 Test Item Value Reference Range Interpretation Comments Monocytes (test code = Monocytes) 9.7 2.0-12.0 [facility]2018-11-08 10:50:01 Test Item Value Reference Range Interpretation Comments eGFR (test code = eGFR) 133 [facility]2018-11-08 10:50:01 Test Item Value Reference Range Interpretation Comments Calcium Lvl (test code = Calcium Lvl) 9.4 8.5-10.5 [facility]2018-11-08 10:50:01 Test Item Value Reference Range Interpretation Comments CO2 (test code = CO2) 28 24-32 [facility] [place]2018-11-08 10:50:01 Test Item Value Reference Range Interpretation Comments BUN (test code = BUN) 14 7-22 [facility] [place]2018-11-08 10:50:01 Test Item Value Reference Range Interpretation Comments Glucose Lvl (test code = Glucose Lvl) 89 70-99 [facility] [place]2018-11-08 10:50:01 Test Item Value Reference Range Interpretation Comments Chloride Lvl (test code = Chloride Lvl) 104 95-109 [facility] [place]2018-11-08 10:50:01 Test Item Value Reference Range Interpretation Comments Potassium Lvl (test code = Potassium 4.2 3.5-5.1 Lvl) [facility] [place]2018-11-08 10:50:01 Test Item Value Reference Range Interpretation Comments Sodium Lvl (test code = Sodium Lvl) 137 135-145 [facility] [place]2018-11-08 10:50:01 Test Item Value Reference Range Interpretation Comments Creatinine Lvl (test code = Creatinine 0.85 0.50-1.40 Lvl) [facility] [place]2018-11-08 10:50:01 Test Item Value Reference Range Interpretation Comments AGAP (test code = AGAP) 9.2 10.0-20.0 [facility]KgbccpxBVTXWMFUKL0798-77-31 10:50:01 Test Item Value Reference Range Interpretation Comments ACT (TEG) Rapid (test code = ACT (TEG) 136 s 86-118 Rapid) [facility] CenterDjimwraPAAAYLGMFU0154-78-96 10:50:01 Test Item Value Reference Range Interpretation Comments Split Point Rapid (test code = Split 0.6 min Point Rapid) [facility] CenterRmcdldcLCFVPWMBEC6712-24-21 10:50:01 Test Item Value Reference Range Interpretation Comments R-time Rapid (test code = R-time 0.9 min 0.4-0.7 Rapid) [facility] CenterVpjwqwjTZOEOFQYSW6252-63-16 10:50:01 Test Item Value Reference Range Interpretation Comments K-time Rapid (test code = K-time 1.4 min 0.6-2.3 Rapid) [facility] CenterIeszsusDFDJGKNAZN5685-49-12 10:50:01 Test Item Value Reference Range Interpretation Comments Angle Rapid (test code = Angle 71 degrees 64-80 Rapid) [facility] CenterZavyjgxLSFDVOFRSZ3274-50-03 10:50:01 Test Item Value Reference Range Interpretation Comments G-value Rapid (test code = G-value 12.7 5.0-11.6 Rapid) [facility] CenterGnfhjirJILQVFKFJZ7636-21-31 10:50:01 Test Item Value Reference Range Interpretation Comments Max Amplitude Rapid (test code = Max 72 mm 52-71 Amplitude Rapid) [facility] CenterSsmntxnHGUZFDYNFU6965-78-55 10:50:01 Test Item Value Reference Range Interpretation Comments Estimated % Lysis Rapid 0.1 See_Comment [Au tomated message] The (test code = Estimated syste m which generated % Lysis Rapid) this result t ransmitted reference range : <=7.5. The reference r boubacar was not used to int erpret this result as normal/abnormal . [place] 568088-11-08 10:50:01 Test Item Value Reference Range Interpretation Comments Platelet (test code = Platelet) 367 133-450 [facility] CenterNofuxjrDBEEHHOEFO8857-28-34 10:50:01 Test Item Value Reference Range Interpretation Comments MPV (test code = MPV) 7.8 7.4-10.4 [facility] CenterRysnzdnCDKUTYWHYA5404-09-22 10:50:01 Test Item Value Reference Range Interpretation Comments MCH (test code = MCH) 27.4 pg 27.0-31.0 [facility] CenterEvgsfurDJAUYBSGDH5948-11-11 10:50:01 Test Item Value Reference Range Interpretation Comments MCV (test code = MCV) 80.7 80.0-94.0 [facility] CenterCoqipnnOFZXEWEFHG4040-63-40 10:50:01 Test Item Value Reference Range Interpretation Comments MCHC (test code = MCHC) 34.0 32.0-36.0 [facility] CenterFiacvpsZHXRYWNKDS1593-58-46 10:50:01 Test Item Value Reference Range Interpretation Comments RDW (test code = RDW) 18.9 11.5-14.5 [facility] CenterIezgkuiGJEEPYMKSE9664-52-55 10:50:01 Test Item Value Reference Range Interpretation Comments Hct (test code = Hct) 43.3 42.0-54.0 [facility] CenterMgkvxadRONWOTWWEI7727-69-88 10:50:01 Test Item Value Reference Range Interpretation Comments WBC (test code = WBC) 9.3 3.7-10.4 [facility] CenterGfpyljhQBJUTHIBLU6314-03-72 10:50:01 Test Item Value Reference Range Interpretation Comments Hgb (test code = Hgb) 14.7 14.0-18.0 [facility] CenterEyqddgnISZCKXCCTR0339-54-50 10:50:01 Test Item Value Reference Range Interpretation Comments RBC (test code = RBC) 5.36 4.70-6.10 [facility] CenterIbvwbquEOVSQDLQFO6382-06-48 10:50:01 Test Item Value Reference Range Interpretation Comments Eosinophils # (test code 0.2 See_Comment [A utomated message] The = Eosinophils #) system whic h generated this result tra nsmitted reference range : <=0.5. The reference r boubacar was not used to int erpret this result as normal/abnormal . [facility] CenterQqvcfyvDSDCZDTCQY0109-30-79 10:50:01 Test Item Value Reference Range Interpretation Comments Basophils # (test code 0.1 See_Comment [Aut omated message] The = Basophils #) system which generated this result tra nsmitted reference range : <=0.2. The reference r boubacar was not used to int erpret this result as normal/abnormal . [facility] CenterRsugijkAETFEPMZDL5295-32-66 10:50:01 Test Item Value Reference Range Interpretation Comments Lymphocytes # (test code = Lymphocytes 1.8 1.0-5.5 #) [facility] CenterGfwsuviACOBNXRBBC7331-37-39 10:50:01 Test Item Value Reference Range Interpretation Comments Monocytes # (test code 0.9 See_Comment [Aut omated message] The = Monocytes #) system which generated this result tra nsmitted reference range : <=0.8. The reference r boubacar was not used to int erpret this result as normal/abnormal . [facility] CenterDourbfwCHSROILUZT9007-95-82 10:50:01 Test Item Value Reference Range Interpretation Comments Neutrophils # (test code = Neutrophils 6.3 1.5-8.1 #) [facility] CenterMdaenpyNCPYXZMOGD0562-07-78 10:50:01 Test Item Value Reference Range Interpretation Comments Eosinophils (test code = 2.0 See_Comment [A utomated message] The Eosinophils) system which ge nerated this result tra nsmitted reference range : <=4.0. The reference r boubacar was not used to int erpret this result as normal/abnormal . [facility] CenterXmitamhOAFTTIVUEJ1084-25-53 10:50:01 Test Item Value Reference Range Interpretation Comments Segs (test code = Segs) 67.4 45.0-75.0 [facility] CenterLcctwloEEPMNTAXYW3497-97-80 10:50:01 Test Item Value Reference Range Interpretation Comments Lymphocytes (test code = Lymphocytes) 19.9 20.0-40.0 [facility] CenterZbjnaxhUECKGKPHTK7363-08-44 10:50:01 Test Item Value Reference Range Interpretation Comments Basophils (test code = 1.0 See_Comment [Aut omated message] The Basophils) system which ge nerated this result tra nsmitted reference range : <=1.0. The reference r boubacar was not used to int erpret this result as normal/abnormal . [facility] CenterSlmudkfIUVUIQBIJI8599-31-23 10:50:01 Test Item Value Reference Range Interpretation Comments Monocytes (test code = Monocytes) 9.7 2.0-12.0 [facility] [place]2018-11-08 10:50:01 Test Item Value Reference Range Interpretation Comments eGFR (test code = eGFR) 133 [facility] [place]2018-11-08 10:50:01 Test Item Value Reference Range Interpretation Comments Calcium Lvl (test code = Calcium Lvl) 9.4 8.5-10.5 [facility] [place]2018-11-08 10:50:01 Test Item Value Reference Range Interpretation Comments CO2 (test code = CO2) 28 24-32 [facility] [place]2018-11-08 10:50:01 Test Item Value Reference Range Interpretation Comments BUN (test code = BUN) 14 7-22 [facility] [place]2018-11-08 10:50:01 Test Item Value Reference Range Interpretation Comments Glucose Lvl (test code = Glucose Lvl) 89 70-99 [facility] [place]2018-11-08 10:50:01 Test Item Value Reference Range Interpretation Comments Chloride Lvl (test code = Chloride Lvl) 104 95-109 [facility] [place]2018-11-08 10:50:01 Test Item Value Reference Range Interpretation Comments Potassium Lvl (test code = Potassium 4.2 3.5-5.1 Lvl) [facility] [place]2018-11-08 10:50:01 Test Item Value Reference Range Interpretation Comments Sodium Lvl (test code = Sodium Lvl) 137 135-145 [facility] [place]2018-11-08 10:50:01 Test Item Value Reference Range Interpretation Comments Creatinine Lvl (test code = Creatinine 0.85 0.50-1.40 Lvl) [facility] [place]2018-11-08 10:50:01 Test Item Value Reference Range Interpretation Comments AGAP (test code = AGAP) 9.2 10.0-20.0 [facility] CenterZqdoqylWFEZHOXSYW2137-74-36 10:50:01 Test Item Value Reference Range Interpretation Comments ACT (TEG) Rapid (test code = ACT (TEG) 136 s 86-118 Rapid) [facility] CenterMkbecmqUHDSFYUTOL4561-36-79 10:50:01 Test Item Value Reference Range Interpretation Comments Split Point Rapid (test code = Split 0.6 min Point Rapid) [facility] CenterUngyovpHDRATNKYAJ0838-92-84 10:50:01 Test Item Value Reference Range Interpretation Comments R-time Rapid (test code = R-time 0.9 min 0.4-0.7 Rapid) [facility] CenterUbfktxtBKBQUUIOKD7806-05-38 10:50:01 Test Item Value Reference Range Interpretation Comments K-time Rapid (test code = K-time 1.4 min 0.6-2.3 Rapid) [facility] CenterBhhoaizTPYPIBGFWP2460-34-55 10:50:01 Test Item Value Reference Range Interpretation Comments Angle Rapid (test code = Angle 71 degrees 64-80 Rapid) [facility] CenterMjdqnffLYTDGTKZVU6543-65-95 10:50:01 Test Item Value Reference Range Interpretation Comments G-value Rapid (test code = G-value 12.7 5.0-11.6 Rapid) [facility] CenterShiydpzBGKMCLICVM2906-10-73 10:50:01 Test Item Value Reference Range Interpretation Comments Max Amplitude Rapid (test code = Max 72 mm 52-71 Amplitude Rapid) [facility] CenterBcdbbuyBHKYLAHIPE8737-27-71 10:50:01 Test Item Value Reference Range Interpretation Comments Estimated % Lysis Rapid 0.1 See_Comment [Au tomated message] The (test code = Estimated syste m which generated % Lysis Rapid) this result t ransmitted reference range : <=7.5. The reference r boubacar was not used to int erpret this result as normal/abnormal . [facility] CenterJhddabvMPVWRLOYGF9698-27-82 10:50:01 Test Item Value Reference Range Interpretation Comments Platelet (test code = Platelet) 367 133450 [facility] CenterNrwmcufDUZHXHJBGO5754-89-83 10:50:01 Test Item Value Reference Range Interpretation Comments MPV (test code = MPV) 7.8 7.4-10.4 [facility] CenterPzpovtwROEXKMUKXW5153-67-29 10:50:01 Test Item Value Reference Range Interpretation Comments MCH (test code = MCH) 27.4 pg 27.0-31.0 [facility] CenterEtgbnmcIFDYRCFPXJ2397-32-66 10:50:01 Test Item Value Reference Range Interpretation Comments MCV (test code = MCV) 80.7 80.0-94.0 [facility] CenterPrrhadsISCKHRFIKE4378-06-22 10:50:01 Test Item Value Reference Range Interpretation Comments MCHC (test code = MCHC) 34.0 32.0-36.0 [facility] CenterQsuvvjeQAEQZKVBNF3304-81-99 10:50:01 Test Item Value Reference Range Interpretation Comments RDW (test code = RDW) 18.9 11.5-14.5 [facility] CenterKevwzkyLGKBCJBEKP1326-21-87 10:50:01 Test Item Value Reference Range Interpretation Comments Hct (test code = Hct) 43.3 42.0-54.0 [facility] CenterKrqgugzXYHZGVHDBC9635-20-49 10:50:01 Test Item Value Reference Range Interpretation Comments WBC (test code = WBC) 9.3 3.7-10.4 [facility] CenterDwtnouzBTYGNGHIDS0311-10-70 10:50:01 Test Item Value Reference Range Interpretation Comments Hgb (test code = Hgb) 14.7 14.0-18.0 [facility] CenterPhourasTSNTCPYRBG2503-30-24 10:50:01 Test Item Value Reference Range Interpretation Comments RBC (test code = RBC) 5.36 4.70-6.10 [facility] CenterUkxoaznIJGTHOBSEM9895-90-73 10:50:01 Test Item Value Reference Range Interpretation Comments Eosinophils # (test code 0.2 See_Comment [A utomated message] The = Eosinophils #) system whic h generated this result tra nsmitted reference range : <=0.5. The reference r boubacar was not used to int erpret this result as normal/abnormal . [facility] CenterQopxljbCADCUIUKJQ4846-87-77 10:50:01 Test Item Value Reference Range Interpretation Comments Basophils # (test code 0.1 See_Comment [Aut omated message] The = Basophils #) system which generated this result tra nsmitted reference range : <=0.2. The reference r boubacar was not used to int erpret this result as normal/abnormal . [facility] CenterOpbwepcRSCCVKCOOZ8889-90-16 10:50:01 Test Item Value Reference Range Interpretation Comments Lymphocytes # (test code = Lymphocytes 1.8 1.0-5.5 #) [facility] CenterAbezlrjODGNSQSEKL3094-82-74 10:50:01 Test Item Value Reference Range Interpretation Comments Monocytes # (test code 0.9 See_Comment [Aut omated message] The = Monocytes #) system which generated this result tra nsmitted reference range : <=0.8. The reference r boubacar was not used to int erpret this result as normal/abnormal . [facility] CenterDogjilwGYBQAULSUP4973-17-86 10:50:01 Test Item Value Reference Range Interpretation Comments Neutrophils # (test code = Neutrophils 6.3 1.5-8.1 #) [facility] CenterYxaictjBBCPRCMMPV7495-56-89 10:50:01 Test Item Value Reference Range Interpretation Comments Eosinophils (test code = 2.0 See_Comment [A utomated message] The Eosinophils) system which ge nerated this result tra nsmitted reference range : <=4.0. The reference r boubacar was not used to int erpret this result as normal/abnormal . [facility] CenterPmqnkfcVMHMZIYSGG4022-96-15 10:50:01 Test Item Value Reference Range Interpretation Comments Segs (test code = Segs) 67.4 45.0-75.0 [facility] CenterOynsyvvPUHIGOWNOP3788-70-42 10:50:01 Test Item Value Reference Range Interpretation Comments Lymphocytes (test code = Lymphocytes) 19.9 20.0-40.0 [facility] CenterHmrzexfTKLMBEDFPJ4429-27-93 10:50:01 Test Item Value Reference Range Interpretation Comments Basophils (test code = 1.0 See_Comment [Aut omated message] The Basophils) system which ge nerated this result tra nsmitted reference range : <=1.0. The reference r boubacar was not used to int erpret this result as normal/abnormal . [facility] CenterVmredpnIBJAWPSXFV4738-99-04 10:50:01 Test Item Value Reference Range Interpretation Comments Monocytes (test code = Monocytes) 9.7 2.0-12.0 [facility] [place]2018-05-08 05:42:00 Test Item Value Reference Range Interpretation Comments B/C Ratio (test code = B/C Ratio) 17 1 6-25 [place] 134218-05-08 05:42:00 Test Item Value Reference Range Interpretation Comments Globulin (test code = Globulin) 4.3 2.7-4.2 [place] 134218-05-08 05:42:00 Test Item Value Reference Range Interpretation Comments A/G Ratio (test code = A/G Ratio) 0.7 1 0.7-1.6 [place] [address]-05-08 05:42:00 Test Item Value Reference Range Interpretation Comments AGAP (test code = AGAP) 14.4 10.0-20.0 [place] 134218-05-08 05:42:00 Test Item Value Reference Range Interpretation Comments eGFR (test code = eGFR) 113 [place] 134218-05-08 05:42:00 Test Item Value Reference Range Interpretation Comments Alk Phos (test code = Alk Phos) 76 39-136 [facility] [place]2018-05-08 05:42:00 Test Item Value Reference Range Interpretation Comments ALT (test code = ALT) 35 See_Comment [Auto mated message] The system which ge nerated this result transmit lester reference range : <=65. The reference range was not used to interpr et this result as dany l/abnormal. [place] 134218-05-08 05:42:00 Test Item Value Reference Range Interpretation Comments Albumin Lvl (test code = Albumin Lvl) 2.8 3.5-5.0 [facility] [place]2018-05-08 05:42:00 Test Item Value Reference Range Interpretation Comments Total Protein (test code = Total 7.1 6.4-8.4 Protein) [place] 134218-05-08 05:42:00 Test Item Value Reference Range Interpretation Comments Calcium Lvl (test code = Calcium Lvl) 8.7 8.5-10.5 [place] 134218-05-08 05:42:00 Test Item Value Reference Range Interpretation Comments AST (test code = AST) 18 See_Comment [Auto mated message] The system which ge nerated this result transmit lester reference range : <=37. The reference range was not used to interpr et this result as dany l/abnormal. [facility] [place]2018-05-08 05:42:00 Test Item Value Reference Range Interpretation Comments Bili Total (test code = Bili Total) 0.3 0.2-1.3 [facility] [place]2018-05-08 05:42:00 Test Item Value Reference Range Interpretation Comments Potassium Lvl (test code = Potassium 4.4 3.5-5.1 Lvl) [facility] [place]2018-05-08 05:42:00 Test Item Value Reference Range Interpretation Comments Chloride Lvl (test code = Chloride Lvl) 109 95-109 [facility] [place]2018-05-08 05:42:00 Test Item Value Reference Range Interpretation Comments CO2 (test code = CO2) 23 24-32 [facility] [place]2018-05-08 05:42:00 Test Item Value Reference Range Interpretation Comments Glucose Lvl (test code = Glucose Lvl) 114 70-99 [facility] [place]2018-05-08 05:42:00 Test Item Value Reference Range Interpretation Comments Creatinine Lvl (test code = Creatinine 1.01 0.50-1.40 Lvl) [facility] [place]2018-05-08 05:42:00 Test Item Value Reference Range Interpretation Comments BUN (test code = BUN) 17 7-22 [facility] [place]2018-05-08 05:42:00 Test Item Value Reference Range Interpretation Comments Sodium Lvl (test code = Sodium Lvl) 142 135-145 [facility] CenterVrvslioPFTVIPGZQH9767-17-20 05:42:00 Test Item Value Reference Range Interpretation Comments Basophils (test code = 0.6 See_Comment [Aut omated message] The Basophils) system which ge nerated this result tra nsmitted reference range : <=1.0. The reference r boubacar was not used to int erpret this result as normal/abnormal . [facility] CenterBylcrsgUCRDZMDMXH8810-91-06 05:42:00 Test Item Value Reference Range Interpretation Comments Segs-Bands # (test code = Segs-Bands #) 4.8 1.5-8.1 [facility] CenterPwzlwqhZFHRMJXODB7130-22-90 05:42:00 Test Item Value Reference Range Interpretation Comments Monocytes # (test code 0.7 See_Comment [Aut omated message] The = Monocytes #) system which generated this result tra nsmitted reference range : <=0.8. The reference r boubacar was not used to int erpret this result as normal/abnormal . [facility] CenterFpvnocePEVEFKPTST1174-00-92 05:42:00 Test Item Value Reference Range Interpretation Comments Lymphocytes # (test code = Lymphocytes 1.9 1.0-5.5 #) [facility] CenterYmamoccHQTHJUXQYB4872-52-17 05:42:00 Test Item Value Reference Range Interpretation Comments Monocytes (test code = Monocytes) 9.4 2.0-12.0 [facility] CenterFsfpmrbALJISIVZSF0939-78-62 05:42:00 Test Item Value Reference Range Interpretation Comments Eosinophils # (test code 0.2 See_Comment [A utomated message] The = Eosinophils #) system whic h generated this result tra nsmitted reference range : <=0.5. The reference r boubacar was not used to int erpret this result as normal/abnormal . [facility] CenterQhuhdkdKUWRLUXFRX9482-81-22 05:42:00 Test Item Value Reference Range Interpretation Comments Eosinophils (test code = 2.9 See_Comment [A utomated message] The Eosinophils) system which ge nerated this result tra nsmitted reference range : <=4.0. The reference r boubacar was not used to int erpret this result as normal/abnormal . [facility] CenterIplfdlbRKSTWHYIDR2197-78-09 05:42:00 Test Item Value Reference Range Interpretation Comments Segs (test code = Segs) 62.2 45.0-75.0 [facility] CenterNfypbddYUJNERLLKI1447-31-02 05:42:00 Test Item Value Reference Range Interpretation Comments Lymphocytes (test code = Lymphocytes) 24.9 20.0-40.0 [facility] CenterEwwqpuuADQJDCJTFS2317-89-94 05:42:00 Test Item Value Reference Range Interpretation Comments MCH (test code = MCH) 27.5 pg 27.0-31.0 [facility] CenterCehcbfmZMYMJRLYKM8729-27-18 05:42:00 Test Item Value Reference Range Interpretation Comments MCV (test code = MCV) 85.3 80.0-94.0 [facility] CenterSlncqbqRMSAQVSQCG4669-60-23 05:42:00 Test Item Value Reference Range Interpretation Comments Hct (test code = Hct) 43.9 42.0-54.0 [facility] CenterLeilrkaFCDWQHNFYP5738-23-39 05:42:00 Test Item Value Reference Range Interpretation Comments Hgb (test code = Hgb) 14.2 14.0-18.0 [facility] CenterBayyozhISHEEKQBPR0641-51-39 05:42:00 Test Item Value Reference Range Interpretation Comments WBC (test code = WBC) 7.7 3.7-10.4 [facility] CenterNsjrifaNNBHITLECZ5726-23-98 05:42:00 Test Item Value Reference Range Interpretation Comments RBC (test code = RBC) 5.15 4.70-6.10 [facility] CenterSyydcufXEQKPSYYYM0930-45-55 05:42:00 Test Item Value Reference Range Interpretation Comments MPV (test code = MPV) 8.4 7.4-10.4 [facility] CenterDmezhecMJNTNAIMUK6199-14-43 05:42:00 Test Item Value Reference Range Interpretation Comments MCHC (test code = MCHC) 32.3 32.0-36.0 [facility] CenterHrwmbxeQRPBCSQFBT9665-45-65 05:42:00 Test Item Value Reference Range Interpretation Comments RDW (test code = RDW) 17.3 11.5-14.5 [facility] CenterBkkpawbZTBYCSUSOR0581-06-49 05:42:00 Test Item Value Reference Range Interpretation Comments Platelet (test code = Platelet) 317 133-450 [facility] [place]2018-05-08 05:42:00 Test Item Value Reference Range Interpretation Comments B/C Ratio (test code = B/C Ratio) 17 1 6-25 [facility] [place]2018-05-08 05:42:00 Test Item Value Reference Range Interpretation Comments Globulin (test code = Globulin) 4.3 2.7-4.2 [facility] [place]2018-05-08 05:42:00 Test Item Value Reference Range Interpretation Comments A/G Ratio (test code = A/G Ratio) 0.7 1 0.7-1.6 [facility] [place]2018-05-08 05:42:00 Test Item Value Reference Range Interpretation Comments AGAP (test code = AGAP) 14.4 10.0-20.0 [facility] [place]2018-05-08 05:42:00 Test Item Value Reference Range Interpretation Comments eGFR (test code = eGFR) 113 [facility] [place]2018-05-08 05:42:00 Test Item Value Reference Range Interpretation Comments Alk Phos (test code = Alk Phos) 76 39-136 [facility] [place]2018-05-08 05:42:00 Test Item Value Reference Range Interpretation Comments ALT (test code = ALT) 35 See_Comment [Auto mated message] The system which ge nerated this result transmit lester reference range : <=65. The reference range was not used to interpr et this result as dany l/abnormal. [facility] [place]2018-05-08 05:42:00 Test Item Value Reference Range Interpretation Comments Albumin Lvl (test code = Albumin Lvl) 2.8 3.5-5.0 [facility]2018-05-08 05:42:00 Test Item Value Reference Range Interpretation Comments Total Protein (test code = Total 7.1 6.4-8.4 Protein) [facility]2018-05-08 05:42:00 Test Item Value Reference Range Interpretation Comments Calcium Lvl (test code = Calcium Lvl) 8.7 8.5-10.5 [facility]2018-05-08 05:42:00 Test Item Value Reference Range Interpretation Comments AST (test code = AST) 18 See_Comment [Auto mated message] The system which ge nerated this result transmit lester reference range : <=37. The reference range was not used to interpr et this result as dany l/abnormal. [facility]2018-05-08 05:42:00 Test Item Value Reference Range Interpretation Comments Bili Total (test code = Bili Total) 0.3 0.2-1.3 [facility]2018-05-08 05:42:00 Test Item Value Reference Range Interpretation Comments Potassium Lvl (test code = Potassium 4.4 3.5-5.1 Lvl) [facility]2018-05-08 05:42:00 Test Item Value Reference Range Interpretation Comments Chloride Lvl (test code = Chloride Lvl) 109 95-109 [facility]2018-05-08 05:42:00 Test Item Value Reference Range Interpretation Comments CO2 (test code = CO2) 23 24-32 [facility]2018-05-08 05:42:00 Test Item Value Reference Range Interpretation Comments Glucose Lvl (test code = Glucose Lvl) 114 70-99 [facility]2018-05-08 05:42:00 Test Item Value Reference Range Interpretation Comments Creatinine Lvl (test code = Creatinine 1.01 0.50-1.40 Lvl) [facility]2018-05-08 05:42:00 Test Item Value Reference Range Interpretation Comments BUN (test code = BUN) 17 7-22 [facility]2018-05-08 05:42:00 Test Item Value Reference Range Interpretation Comments Sodium Lvl (test code = Sodium Lvl) 142 135-145 [facility] CenterXlqquvbFUQIFIJKTF3434-90-67 05:42:00 Test Item Value Reference Range Interpretation Comments Basophils (test code = 0.6 See_Comment [Aut omated message] The Basophils) system which ge nerated this result tra nsmitted reference range : <=1.0. The reference r boubacar was not used to int erpret this result as normal/abnormal . [facility] CenterHtcybifOGARJCYHIE0183-99-30 05:42:00 Test Item Value Reference Range Interpretation Comments Segs-Bands # (test code = Segs-Bands #) 4.8 1.5-8.1 [facility] CenterHygnhfxODHXMBAHDK1176-67-52 05:42:00 Test Item Value Reference Range Interpretation Comments Monocytes # (test code 0.7 See_Comment [Aut omated message] The = Monocytes #) system which generated this result tra nsmitted reference range : <=0.8. The reference r boubacar was not used to int erpret this result as normal/abnormal . [facility] CenterIrxgyfjRHGSRYXOSU9621-07-71 05:42:00 Test Item Value Reference Range Interpretation Comments Lymphocytes # (test code = Lymphocytes 1.9 1.0-5.5 #) [facility] CenterUjqauiaYHYAUXTBRI4721-45-48 05:42:00 Test Item Value Reference Range Interpretation Comments Monocytes (test code = Monocytes) 9.4 2.0-12.0 [facility] CenterXpfgqqtCDNYHQRZAD6666-70-46 05:42:00 Test Item Value Reference Range Interpretation Comments Eosinophils # (test code 0.2 See_Comment [A utomated message] The = Eosinophils #) system whic h generated this result tra nsmitted reference range : <=0.5. The reference r boubacar was not used to int erpret this result as normal/abnormal . [facility] CenterRknfxsoYFDFIUPPHL0089-83-76 05:42:00 Test Item Value Reference Range Interpretation Comments Eosinophils (test code = 2.9 See_Comment [A utomated message] The Eosinophils) system which ge nerated this result tra nsmitted reference range : <=4.0. The reference r boubacar was not used to int erpret this result as normal/abnormal . [facility] CenterOotksdoAFQDBGOQDX6806-47-45 05:42:00 Test Item Value Reference Range Interpretation Comments Segs (test code = Segs) 62.2 45.0-75.0 [facility] CenterHnxnhmcFJPGTFUVZU9150-08-34 05:42:00 Test Item Value Reference Range Interpretation Comments Lymphocytes (test code = Lymphocytes) 24.9 20.0-40.0 [facility] CenterVwcjemkDIKPVPQJJG3483-15-02 05:42:00 Test Item Value Reference Range Interpretation Comments MCH (test code = MCH) 27.5 pg 27.0-31.0 [facility] CenterDvfcoiqSLMLCDQGIG5192-71-36 05:42:00 Test Item Value Reference Range Interpretation Comments MCV (test code = MCV) 85.3 80.0-94.0 [facility] CenterEzemkjuACVDPRFMRF6046-34-11 05:42:00 Test Item Value Reference Range Interpretation Comments Hct (test code = Hct) 43.9 42.0-54.0 [facility] CenterFoovskxKEHWRXHDGS1879-96-60 05:42:00 Test Item Value Reference Range Interpretation Comments Hgb (test code = Hgb) 14.2 14.0-18.0 [facility] CenterXvmvowxYMRAGVMCDI1951-38-58 05:42:00 Test Item Value Reference Range Interpretation Comments WBC (test code = WBC) 7.7 3.7-10.4 [facility] CenterQyuwqpiFJXEYOQRGP0129-41-68 05:42:00 Test Item Value Reference Range Interpretation Comments RBC (test code = RBC) 5.15 4.70-6.10 [facility] CenterPtjpgkuUIXLNRMPYQ2827-84-84 05:42:00 Test Item Value Reference Range Interpretation Comments MPV (test code = MPV) 8.4 7.4-10.4 [facility] CenterNkfzcbzONXDNXESTK5623-02-77 05:42:00 Test Item Value Reference Range Interpretation Comments MCHC (test code = MCHC) 32.3 32.0-36.0 [facility] CenterJnsynxtGMQFTZXBNF5768-68-99 05:42:00 Test Item Value Reference Range Interpretation Comments RDW (test code = RDW) 17.3 11.5-14.5 [facility] CenterYeokkhxAIZDVCGWGA1819-91-18 05:42:00 Test Item Value Reference Range Interpretation Comments Platelet (test code = Platelet) 317 133-450 [facility]2018-05-08 05:42:00 Test Item Value Reference Range Interpretation Comments B/C Ratio (test code = B/C Ratio) 17 1 6-25 [facility]2018-05-08 05:42:00 Test Item Value Reference Range Interpretation Comments Globulin (test code = Globulin) 4.3 2.7-4.2 [facility]2018-05-08 05:42:00 Test Item Value Reference Range Interpretation Comments A/G Ratio (test code = A/G Ratio) 0.7 1 0.7-1.6 [facility]2018-05-08 05:42:00 Test Item Value Reference Range Interpretation Comments AGAP (test code = AGAP) 14.4 10.0-20.0 [facility]2018-05-08 05:42:00 Test Item Value Reference Range Interpretation Comments eGFR (test code = eGFR) 113 [facility]2018-05-08 05:42:00 Test Item Value Reference Range Interpretation Comments Alk Phos (test code = Alk Phos) 76 39-136 [facility]2018-05-08 05:42:00 Test Item Value Reference Range Interpretation Comments ALT (test code = ALT) 35 See_Comment [Auto mated message] The system which ge nerated this result transmit lester reference range : <=65. The reference range was not used to interpr et this result as dany l/abnormal. [facility]2018-05-08 05:42:00 Test Item Value Reference Range Interpretation Comments Albumin Lvl (test code = Albumin Lvl) 2.8 3.5-5.0 [facility]2018-05-08 05:42:00 Test Item Value Reference Range Interpretation Comments Total Protein (test code = Total 7.1 6.4-8.4 Protein) [facility]2018-05-08 05:42:00 Test Item Value Reference Range Interpretation Comments Calcium Lvl (test code = Calcium Lvl) 8.7 8.5-10.5 [facility]2018-05-08 05:42:00 Test Item Value Reference Range Interpretation Comments AST (test code = AST) 18 See_Comment [Auto mated message] The system which ge nerated this result transmit lester reference range : <=37. The reference range was not used to interpr et this result as dany l/abnormal. [facility]2018-05-08 05:42:00 Test Item Value Reference Range Interpretation Comments Bili Total (test code = Bili Total) 0.3 0.2-1.3 [facility]2018-05-08 05:42:00 Test Item Value Reference Range Interpretation Comments Potassium Lvl (test code = Potassium 4.4 3.5-5.1 Lvl) [facility]2018-05-08 05:42:00 Test Item Value Reference Range Interpretation Comments Chloride Lvl (test code = Chloride Lvl) 109 95-109 [facility]2018-05-08 05:42:00 Test Item Value Reference Range Interpretation Comments CO2 (test code = CO2) 23 24-32 [facility]2018-05-08 05:42:00 Test Item Value Reference Range Interpretation Comments Glucose Lvl (test code = Glucose Lvl) 114 70-99 [facility]2018-05-08 05:42:00 Test Item Value Reference Range Interpretation Comments Creatinine Lvl (test code = Creatinine 1.01 0.50-1.40 Lvl) [facility]2018-05-08 05:42:00 Test Item Value Reference Range Interpretation Comments BUN (test code = BUN) 17 7-22 [facility]2018-05-08 05:42:00 Test Item Value Reference Range Interpretation Comments Sodium Lvl (test code = Sodium Lvl) 142 135-145 [facility] CenterHnamovpMSGJFDEUST0907-47-05 05:42:00 Test Item Value Reference Range Interpretation Comments Basophils (test code = 0.6 See_Comment [Aut omated message] The Basophils) system which ge nerated this result tra nsmitted reference range : <=1.0. The reference r boubacar was not used to int erpret this result as normal/abnormal . [facility] CenterVajdgpmYWQAYIOUOT4940-04-56 05:42:00 Test Item Value Reference Range Interpretation Comments Segs-Bands # (test code = Segs-Bands #) 4.8 1.5-8.1 [facility] CenterYxshpcmKXLEUWVZDE7748-01-04 05:42:00 Test Item Value Reference Range Interpretation Comments Monocytes # (test code 0.7 See_Comment [Aut omated message] The = Monocytes #) system which generated this result tra nsmitted reference range : <=0.8. The reference r boubacar was not used to int erpret this result as normal/abnormal . [facility] CenterEpsfjdhCFNGLXTOIP6800-63-02 05:42:00 Test Item Value Reference Range Interpretation Comments Lymphocytes # (test code = Lymphocytes 1.9 1.0-5.5 #) [facility] CenterKyzpcwzVFIBOYPMND5812-90-61 05:42:00 Test Item Value Reference Range Interpretation Comments Monocytes (test code = Monocytes) 9.4 2.0-12.0 [facility] CenterUlyoitgAIFRBFGXVO5471-18-36 05:42:00 Test Item Value Reference Range Interpretation Comments Eosinophils # (test code 0.2 See_Comment [A utomated message] The = Eosinophils #) system whic h generated this result tra nsmitted reference range : <=0.5. The reference r boubacar was not used to int erpret this result as normal/abnormal . [facility] CenterWmmgtrjZIZOJMZIRA0370-43-84 05:42:00 Test Item Value Reference Range Interpretation Comments Eosinophils (test code = 2.9 See_Comment [A utomated message] The Eosinophils) system which ge nerated this result tra nsmitted reference range : <=4.0. The reference r boubacar was not used to int erpret this result as normal/abnormal . [facility] CenterCjmfnwkWRXAZATDSV3211-85-87 05:42:00 Test Item Value Reference Range Interpretation Comments Segs (test code = Segs) 62.2 45.0-75.0 [facility] CenterYnpihizBRSTGKPJIT8602-68-86 05:42:00 Test Item Value Reference Range Interpretation Comments Lymphocytes (test code = Lymphocytes) 24.9 20.0-40.0 [facility] CenterBqydhqrJAZFEOVAAO5808-80-55 05:42:00 Test Item Value Reference Range Interpretation Comments MCH (test code = MCH) 27.5 pg 27.0-31.0 [facility] CenterDjscfziCTLFLDUFWG3397-75-62 05:42:00 Test Item Value Reference Range Interpretation Comments MCV (test code = MCV) 85.3 80.0-94.0 [facility] CenterVdmrosfTIKWWJSQOG3424-03-73 05:42:00 Test Item Value Reference Range Interpretation Comments Hct (test code = Hct) 43.9 42.0-54.0 [facility] CenterUcngrmeUMRAKYJPSO2388-44-12 05:42:00 Test Item Value Reference Range Interpretation Comments Hgb (test code = Hgb) 14.2 14.0-18.0 [facility] CenterHnwkpzyAHVHWZUCUB0601-08-03 05:42:00 Test Item Value Reference Range Interpretation Comments WBC (test code = WBC) 7.7 3.7-10.4 [facility] CenterDnxmjboULJQLOWNVA8516-76-34 05:42:00 Test Item Value Reference Range Interpretation Comments RBC (test code = RBC) 5.15 4.70-6.10 [facility] CenterXuibczuBCDOYSJOSF4256-10-12 05:42:00 Test Item Value Reference Range Interpretation Comments MPV (test code = MPV) 8.4 7.4-10.4 [facility] CenterGqqeizyEQHUTGEVJP6150-52-12 05:42:00 Test Item Value Reference Range Interpretation Comments MCHC (test code = MCHC) 32.3 32.0-36.0 [facility] CenterHwlfgsnWAIJCZPEAY7610-25-24 05:42:00 Test Item Value Reference Range Interpretation Comments RDW (test code = RDW) 17.3 11.5-14.5 [facility] CenterAscvdwvSAZSUAEQGI2463-50-91 05:42:00 Test Item Value Reference Range Interpretation Comments Platelet (test code = Platelet) 317 133450 [facility]2018-05-08 05:42:00 Test Item Value Reference Range Interpretation Comments B/C Ratio (test code = B/C Ratio) 17 1 6-25 [facility]2018-05-08 05:42:00 Test Item Value Reference Range Interpretation Comments Globulin (test code = Globulin) 4.3 2.7-4.2 [facility]2018-05-08 05:42:00 Test Item Value Reference Range Interpretation Comments A/G Ratio (test code = A/G Ratio) 0.7 1 0.7-1.6 [facility]2018-05-08 05:42:00 Test Item Value Reference Range Interpretation Comments AGAP (test code = AGAP) 14.4 10.0-20.0 [facility]2018-05-08 05:42:00 Test Item Value Reference Range Interpretation Comments eGFR (test code = eGFR) 113 [facility] ULPXK9391-07-74 05:42:00 Test Item Value Reference Range Interpretation Comments Alk Phos (test code = Alk Phos) 76 39-136 [facility]2018-05-08 05:42:00 Test Item Value Reference Range Interpretation Comments ALT (test code = ALT) 35 See_Comment [Auto mated message] The system which ge nerated this result transmit lestre reference range : <=65. The reference range was not used to interpr et this result as dany l/abnormal. [facility] [id number] 05:42:00 Test Item Value Reference Range Interpretation Comments Albumin Lvl (test code = Albumin Lvl) 2.8 3.5-5.0 [facility] [id number] 05:42:00 Test Item Value Reference Range Interpretation Comments Total Protein (test code = Total 7.1 6.4-8.4 Protein) [facility] GGOLM7901-34-35 05:42:00 Test Item Value Reference Range Interpretation Comments Calcium Lvl (test code = Calcium Lvl) 8.7 8.5-10.5 [facility] [id number] 05:42:00 Test Item Value Reference Range Interpretation Comments AST (test code = AST) 18 See_Comment [Auto mated message] The system which ge nerated this result transmit lester reference range : <=37. The reference range was not used to interpr et this result as dany l/abnormal. [facility] [id number] 05:42:00 Test Item Value Reference Range Interpretation Comments Bili Total (test code = Bili Total) 0.3 0.2-1.3 [facility] [id number] 05:42:00 Test Item Value Reference Range Interpretation Comments Potassium Lvl (test code = Potassium 4.4 3.5-5.1 Lvl) [facility] [id number] 05:42:00 Test Item Value Reference Range Interpretation Comments Chloride Lvl (test code = Chloride Lvl) 109 95-109 [facility] [id number] 05:42:00 Test Item Value Reference Range Interpretation Comments CO2 (test code = CO2) 23 24-32 [facility]2018-05-08 05:42:00 Test Item Value Reference Range Interpretation Comments Glucose Lvl (test code = Glucose Lvl) 114 70-99 [facility]2018-05-08 05:42:00 Test Item Value Reference Range Interpretation Comments Creatinine Lvl (test code = Creatinine 1.01 0.50-1.40 Lvl) [facility]2018-05-08 05:42:00 Test Item Value Reference Range Interpretation Comments BUN (test code = BUN) 17 7-22 [facility]2018-05-08 05:42:00 Test Item Value Reference Range Interpretation Comments Sodium Lvl (test code = Sodium Lvl) 142 135-145 [facility] CenterAcaceydXZONVLXTAE5317-89-28 05:42:00 Test Item Value Reference Range Interpretation Comments Basophils (test code = 0.6 See_Comment [Aut omated message] The Basophils) system which ge nerated this result tra nsmitted reference range : <=1.0. The reference r boubacar was not used to int erpret this result as normal/abnormal . [facility] CenterVruerggFNJLNXQCOM7587-56-31 05:42:00 Test Item Value Reference Range Interpretation Comments Segs-Bands # (test code = Segs-Bands #) 4.8 1.5-8.1 [facility] CenterInjaxhdHLAVNCKVIW7536-99-44 05:42:00 Test Item Value Reference Range Interpretation Comments Monocytes # (test code 0.7 See_Comment [Aut omated message] The = Monocytes #) system which generated this result tra nsmitted reference range : <=0.8. The reference r boubacar was not used to int erpret this result as normal/abnormal . [facility] CenterOisskhfCMOWHRZDVM8416-09-22 05:42:00 Test Item Value Reference Range Interpretation Comments Lymphocytes # (test code = Lymphocytes 1.9 1.0-5.5 #) [facility] CenterShuzuulXAEGDRCIGJ0216-63-14 05:42:00 Test Item Value Reference Range Interpretation Comments Monocytes (test code = Monocytes) 9.4 2.0-12.0 [place] [id number] 05:42:00 Test Item Value Reference Range Interpretation Comments Eosinophils # (test code 0.2 See_Comment [A utomated message] The = Eosinophils #) system whic h generated this result tra nsmitted reference range : <=0.5. The reference r boubacar was not used to int erpret this result as normal/abnormal . [facility] CenterQovdyibZJLWFXELMD9113-99-06 05:42:00 Test Item Value Reference Range Interpretation Comments Eosinophils (test code = 2.9 See_Comment [A utomated message] The Eosinophils) system which ge nerated this result tra nsmitted reference range : <=4.0. The reference r boubacar was not used to int erpret this result as normal/abnormal . [facility] CenterDckgrsoGBRDKKJONR0609-98-67 05:42:00 Test Item Value Reference Range Interpretation Comments Segs (test code = Segs) 62.2 45.0-75.0 [facility] CenterEkwzzsvEFXWIRHEDS2929-88-34 05:42:00 Test Item Value Reference Range Interpretation Comments Lymphocytes (test code = Lymphocytes) 24.9 20.0-40.0 [facility] CenterUovoqopOEHMNRGFYD2441-80-44 05:42:00 Test Item Value Reference Range Interpretation Comments MCH (test code = MCH) 27.5 pg 27.0-31.0 [facility] CenterMurabmmYSUBNOBMMS6626-05-23 05:42:00 Test Item Value Reference Range Interpretation Comments MCV (test code = MCV) 85.3 80.0-94.0 [facility] CenterIubnifjADDSTWCUIU1036-76-63 05:42:00 Test Item Value Reference Range Interpretation Comments Hct (test code = Hct) 43.9 42.0-54.0 [facility] CenterAucszzzBACNMRPSPF7813-58-40 05:42:00 Test Item Value Reference Range Interpretation Comments Hgb (test code = Hgb) 14.2 14.0-18.0 [facility] CenterYplkvrrAOPBLZWFOT0586-65-25 05:42:00 Test Item Value Reference Range Interpretation Comments WBC (test code = WBC) 7.7 3.7-10.4 [facility] CenterQusvlumERURFQQZDB8617-17-45 05:42:00 Test Item Value Reference Range Interpretation Comments RBC (test code = RBC) 5.15 4.70-6.10 [facility] CenterQubaostWYRDELPXUA7335-14-11 05:42:00 Test Item Value Reference Range Interpretation Comments MPV (test code = MPV) 8.4 7.4-10.4 [facility] CenterWoajehtZONFGJDDEO7450-66-25 05:42:00 Test Item Value Reference Range Interpretation Comments MCHC (test code = MCHC) 32.3 32.0-36.0 [facility] CenterBztmswwIVLUKUOYHX4589-68-25 05:42:00 Test Item Value Reference Range Interpretation Comments RDW (test code = RDW) 17.3 11.5-14.5 [facility] CenterRsqwkyhBQOPLAQMBG8394-10-69 05:42:00 Test Item Value Reference Range Interpretation Comments Platelet (test code = Platelet) 317 133-450 [facility]2018-05-07 09:36:00 Test Item Value Reference Range Interpretation Comments Globulin (test code = Globulin) 4.4 2.7-4.2 [facility]2018-05-07 09:36:00 Test Item Value Reference Range Interpretation Comments A/G Ratio (test code = A/G Ratio) 0.6 1 0.7-1.6 [place] 134218-05-07 09:36:00 Test Item Value Reference Range Interpretation Comments B/C Ratio (test code = B/C Ratio) 17 1 6-25 [facility]2018-05-07 09:36:00 Test Item Value Reference Range Interpretation Comments AGAP (test code = AGAP) 11.3 10.0-20.0 [facility]2018-05-07 09:36:00 Test Item Value Reference Range Interpretation Comments eGFR (test code = eGFR) 134 [facility]2018-05-07 09:36:00 Test Item Value Reference Range Interpretation Comments Creatinine Lvl (test code = Creatinine 0.84 0.50-1.40 Lvl) [facility]2018-05-07 09:36:00 Test Item Value Reference Range Interpretation Comments Sodium Lvl (test code = Sodium Lvl) 142 135-145 [facility]2018-05-07 09:36:00 Test Item Value Reference Range Interpretation Comments Glucose Lvl (test code = Glucose Lvl) 99 70-99 [facility]2018-05-07 09:36:00 Test Item Value Reference Range Interpretation Comments BUN (test code = BUN) 14 7-22 [facility]2018-05-07 09:36:00 Test Item Value Reference Range Interpretation Comments Alk Phos (test code = Alk Phos) 79 39-136 [facility]2018-05-07 09:36:00 Test Item Value Reference Range Interpretation Comments Bili Total (test code = Bili Total) 0.3 0.2-1.3 [place] 134218-05-07 09:36:00 Test Item Value Reference Range Interpretation Comments AST (test code = AST) 14 See_Comment [Auto mated message] The system which ge nerated this result transmit lester reference range : <=37. The reference range was not used to interpr et this result as dany l/abnormal. [place] 134218-05-07 09:36:00 Test Item Value Reference Range Interpretation Comments ALT (test code = ALT) 43 See_Comment [Auto mated message] The system which ge nerated this result transmit lester reference range : <=65. The reference range was not used to interpr et this result as dany l/abnormal. [place] 134218-05-07 09:36:00 Test Item Value Reference Range Interpretation Comments Total Protein (test code = Total 7.1 6.4-8.4 Protein) [facility]2018-05-07 09:36:00 Test Item Value Reference Range Interpretation Comments Albumin Lvl (test code = Albumin Lvl) 2.7 3.5-5.0 [place] 134218-05-07 09:36:00 Test Item Value Reference Range Interpretation Comments Calcium Lvl (test code = Calcium Lvl) 9.2 8.5-10.5 [place] 134218-05-07 09:36:00 Test Item Value Reference Range Interpretation Comments CO2 (test code = CO2) 21 24-32 [place] 134218-05-07 09:36:00 Test Item Value Reference Range Interpretation Comments Potassium Lvl (test code = Potassium 4.3 3.5-5.1 Lvl) [place] 134218-05-07 09:36:00 Test Item Value Reference Range Interpretation Comments Chloride Lvl (test code = Chloride Lvl) 114 95-109 [facility]ZieweqtLBZTTIROED8614-12-40 09:36:00 Test Item Value Reference Range Interpretation Comments MCHC (test code = MCHC) 32.5 32.0-36.0 [facility] CenterFxcqpkiFXDNMOJBIH7701-58-05 09:36:00 Test Item Value Reference Range Interpretation Comments RDW (test code = RDW) 17.5 11.5-14.5 [facility] CenterIjyqswmRMCJIKZETL6285-69-18 09:36:00 Test Item Value Reference Range Interpretation Comments Platelet (test code = Platelet) 400 133-450 [facility] CenterTtquenxGTXEZMWSXL3710-09-33 09:36:00 Test Item Value Reference Range Interpretation Comments MPV (test code = MPV) 8.5 7.4-10.4 [facility] CenterKzsuofmIBMAKQCKDQ3711-92-31 09:36:00 Test Item Value Reference Range Interpretation Comments WBC (test code = WBC) 6.6 3.7-10.4 [facility] CenterNthnrwyRCIYCBHUOQ4121-07-56 09:36:00 Test Item Value Reference Range Interpretation Comments RBC (test code = RBC) 5.17 4.70-6.10 [facility] CenterYrncpalRWNNKYDHHQ4231-82-75 09:36:00 Test Item Value Reference Range Interpretation Comments MCV (test code = MCV) 86.1 80.0-94.0 [facility] CenterWbzaqiiZPUMCUFLXB6053-16-78 09:36:00 Test Item Value Reference Range Interpretation Comments Hct (test code = Hct) 44.5 42.0-54.0 [facility] CenterRinwlslZNNZWSBJXP1808-36-02 09:36:00 Test Item Value Reference Range Interpretation Comments MCH (test code = MCH) 28.0 pg 27.0-31.0 [facility] CenterSgbxnvfZXBPPFGSRX3758-34-02 09:36:00 Test Item Value Reference Range Interpretation Comments Hgb (test code = Hgb) 14.5 14.0-18.0 [facility] CenterRssbispMUEKLUDYNP5254-67-22 09:36:00 Test Item Value Reference Range Interpretation Comments Lymphocytes # (test code = Lymphocytes 1.7 1.0-5.5 #) [facility] CenterTlfcqzeBVHBKQSXWJ3856-55-43 09:36:00 Test Item Value Reference Range Interpretation Comments Monocytes # (test code 0.7 See_Comment [Aut omated message] The = Monocytes #) system which generated this result tra nsmitted reference range : <=0.8. The reference r boubacar was not used to int erpret this result as normal/abnormal . [facility] CenterDhkofwpBODIERIZYK3107-22-61 09:36:00 Test Item Value Reference Range Interpretation Comments Eosinophils # (test code 0.2 See_Comment [A utomated message] The = Eosinophils #) system whic h generated this result tra nsmitted reference range : <=0.5. The reference r boubacar was not used to int erpret this result as normal/abnormal . [facility] CenterWyouqmtLLXHNBLMZF2358-30-06 09:36:00 Test Item Value Reference Range Interpretation Comments Lymphocytes (test code = Lymphocytes) 26.1 20.0-40.0 [facility] CenterXyomyefKZHBQQTJVH9177-00-04 09:36:00 Test Item Value Reference Range Interpretation Comments Segs (test code = Segs) 59.3 45.0-75.0 [facility] CenterVzrslybMVHPWDQEAC7397-27-17 09:36:00 Test Item Value Reference Range Interpretation Comments Basophils (test code = 0.8 See_Comment [Aut omated message] The Basophils) system which ge nerated this result tra nsmitted reference range : <=1.0. The reference r boubacar was not used to int erpret this result as normal/abnormal . [facility] CenterKrgglxiXVWTFDOAYS3995-12-28 09:36:00 Test Item Value Reference Range Interpretation Comments Monocytes (test code = Monocytes) 10.5 2.0-12.0 [facility] CenterRhqyewbBKOFBGKGUN4961-31-21 09:36:00 Test Item Value Reference Range Interpretation Comments Eosinophils (test code = 3.3 See_Comment [A utomated message] The Eosinophils) system which ge nerated this result tra nsmitted reference range : <=4.0. The reference r boubacar was not used to int erpret this result as normal/abnormal . [facility] CenterGuyettwEXYDGJJXXU1694-09-18 09:36:00 Test Item Value Reference Range Interpretation Comments Segs-Bands # (test code = Segs-Bands #) 3.9 1.5-8.1 [facility] LCETC2851-91-91 09:36:00 Test Item Value Reference Range Interpretation Comments Globulin (test code = Globulin) 4.4 2.7-4.2 [facility]2018-05-07 09:36:00 Test Item Value Reference Range Interpretation Comments A/G Ratio (test code = A/G Ratio) 0.6 1 0.7-1.6 [facility]2018-05-07 09:36:00 Test Item Value Reference Range Interpretation Comments B/C Ratio (test code = B/C Ratio) 17 1 6-25 [facility]2018-05-07 09:36:00 Test Item Value Reference Range Interpretation Comments AGAP (test code = AGAP) 11.3 10.0-20.0 [place] 134218-05-07 09:36:00 Test Item Value Reference Range Interpretation Comments eGFR (test code = eGFR) 134 [place] 134218-05-07 09:36:00 Test Item Value Reference Range Interpretation Comments Creatinine Lvl (test code = Creatinine 0.84 0.50-1.40 Lvl) [facility]2018-05-07 09:36:00 Test Item Value Reference Range Interpretation Comments Sodium Lvl (test code = Sodium Lvl) 142 135-145 [place] 134218-05-07 09:36:00 Test Item Value Reference Range Interpretation Comments Glucose Lvl (test code = Glucose Lvl) 99 70-99 [place] 134218-05-07 09:36:00 Test Item Value Reference Range Interpretation Comments BUN (test code = BUN) 14 7-22 [place] 134218-05-07 09:36:00 Test Item Value Reference Range Interpretation Comments Alk Phos (test code = Alk Phos) 79 39-136 [place] 134218-05-07 09:36:00 Test Item Value Reference Range Interpretation Comments Bili Total (test code = Bili Total) 0.3 0.2-1.3 [place] 134218-05-07 09:36:00 Test Item Value Reference Range Interpretation Comments AST (test code = AST) 14 See_Comment [Auto mated message] The system which ge nerated this result transmit lester reference range : <=37. The reference range was not used to interpr et this result as dany l/abnormal. [facility]2018-05-07 09:36:00 Test Item Value Reference Range Interpretation Comments ALT (test code = ALT) 43 See_Comment [Auto mated message] The system which ge nerated this result transmit lester reference range : <=65. The reference range was not used to interpr et this result as dany l/abnormal. [place] 134218-05-07 09:36:00 Test Item Value Reference Range Interpretation Comments Total Protein (test code = Total 7.1 6.4-8.4 Protein) [facility]2018-05-07 09:36:00 Test Item Value Reference Range Interpretation Comments Albumin Lvl (test code = Albumin Lvl) 2.7 3.5-5.0 [facility]2018-05-07 09:36:00 Test Item Value Reference Range Interpretation Comments Calcium Lvl (test code = Calcium Lvl) 9.2 8.5-10.5 [facility]2018-05-07 09:36:00 Test Item Value Reference Range Interpretation Comments CO2 (test code = CO2) 21 24-32 [facility]2018-05-07 09:36:00 Test Item Value Reference Range Interpretation Comments Potassium Lvl (test code = Potassium 4.3 3.5-5.1 Lvl) [facility]2018-05-07 09:36:00 Test Item Value Reference Range Interpretation Comments Chloride Lvl (test code = Chloride Lvl) 114 95-109 [facility] CenterIxriuktWTFESIJBEU3691-05-71 09:36:00 Test Item Value Reference Range Interpretation Comments MCHC (test code = MCHC) 32.5 32.0-36.0 [facility] CenterQgrofjhPMZQYXJRHF6066-50-01 09:36:00 Test Item Value Reference Range Interpretation Comments RDW (test code = RDW) 17.5 11.5-14.5 [facility] CenterFapfsseHELVIDTMJY9599-81-40 09:36:00 Test Item Value Reference Range Interpretation Comments Platelet (test code = Platelet) 400 133-450 [facility] CenterFgzoowfYZKACWRNFB2210-00-96 09:36:00 Test Item Value Reference Range Interpretation Comments MPV (test code = MPV) 8.5 7.4-10.4 [facility] CenterGfrfdloUEATBPXXTL1121-76-12 09:36:00 Test Item Value Reference Range Interpretation Comments WBC (test code = WBC) 6.6 3.7-10.4 [facility] CenterIbqgxxeRAYFAWVDND6138-48-57 09:36:00 Test Item Value Reference Range Interpretation Comments RBC (test code = RBC) 5.17 4.70-6.10 [facility] CenterQqjnfefPRHMMOWQNM3116-35-45 09:36:00 Test Item Value Reference Range Interpretation Comments MCV (test code = MCV) 86.1 80.0-94.0 [facility] CenterGjygdjeFZQFDKFAMQ2986-62-92 09:36:00 Test Item Value Reference Range Interpretation Comments Hct (test code = Hct) 44.5 42.0-54.0 [facility] CenterTusdhafPRNAFCWTYB0054-20-73 09:36:00 Test Item Value Reference Range Interpretation Comments MCH (test code = MCH) 28.0 pg 27.0-31.0 [facility] CenterIyjgcirUQOBQLNDAN2311-71-85 09:36:00 Test Item Value Reference Range Interpretation Comments Hgb (test code = Hgb) 14.5 14.0-18.0 [facility] CenterYgbbjjmVBUPKGCYWX9022-25-91 09:36:00 Test Item Value Reference Range Interpretation Comments Lymphocytes # (test code = Lymphocytes 1.7 1.0-5.5 #) [facility] CenterSzmtnouXELWGCJQFK3222-70-97 09:36:00 Test Item Value Reference Range Interpretation Comments Monocytes # (test code 0.7 See_Comment [Aut omated message] The = Monocytes #) system which generated this result tra nsmitted reference range : <=0.8. The reference r boubacar was not used to int erpret this result as normal/abnormal . [facility] CenterRgchpuoLGEBUBHJLN5371-01-44 09:36:00 Test Item Value Reference Range Interpretation Comments Eosinophils # (test code 0.2 See_Comment [A utomated message] The = Eosinophils #) system whic h generated this result tra nsmitted reference range : <=0.5. The reference r boubacar was not used to int erpret this result as normal/abnormal . [facility] CenterCenrqfcPDSYNQEOLQ9236-31-10 09:36:00 Test Item Value Reference Range Interpretation Comments Lymphocytes (test code = Lymphocytes) 26.1 20.0-40.0 [facility] CenterSwdwweeTIPSWPWVUN2063-24-09 09:36:00 Test Item Value Reference Range Interpretation Comments Segs (test code = Segs) 59.3 45.0-75.0 [facility] CenterQlgyzuaKPOXWEUKQD5411-14-65 09:36:00 Test Item Value Reference Range Interpretation Comments Basophils (test code = 0.8 See_Comment [Aut omated message] The Basophils) system which ge nerated this result tra nsmitted reference range : <=1.0. The reference r boubacar was not used to int erpret this result as normal/abnormal . [facility] CenterUwtpwjuVPXXVKNJPU1271-74-83 09:36:00 Test Item Value Reference Range Interpretation Comments Monocytes (test code = Monocytes) 10.5 2.0-12.0 [facility] CenterCyhjfyrAWCILZXIHF3614-72-34 09:36:00 Test Item Value Reference Range Interpretation Comments Eosinophils (test code = 3.3 See_Comment [A utomated message] The Eosinophils) system which ge nerated this result tra nsmitted reference range : <=4.0. The reference r boubacar was not used to int erpret this result as normal/abnormal . [place] 568088-05-07 09:36:00 Test Item Value Reference Range Interpretation Comments Segs-Bands # (test code = Segs-Bands #) 3.9 1.5-8.1 [place] 134218-05-07 09:36:00 Test Item Value Reference Range Interpretation Comments Globulin (test code = Globulin) 4.4 2.7-4.2 [place] 134218-05-07 09:36:00 Test Item Value Reference Range Interpretation Comments A/G Ratio (test code = A/G Ratio) 0.6 1 0.7-1.6 [place] 134218-05-07 09:36:00 Test Item Value Reference Range Interpretation Comments B/C Ratio (test code = B/C Ratio) 17 1 6-25 [facility]2018-05-07 09:36:00 Test Item Value Reference Range Interpretation Comments AGAP (test code = AGAP) 11.3 10.0-20.0 [facility]2018-05-07 09:36:00 Test Item Value Reference Range Interpretation Comments eGFR (test code = eGFR) 134 [facility]2018-05-07 09:36:00 Test Item Value Reference Range Interpretation Comments Creatinine Lvl (test code = Creatinine 0.84 0.50-1.40 Lvl) [facility]2018-05-07 09:36:00 Test Item Value Reference Range Interpretation Comments Sodium Lvl (test code = Sodium Lvl) 142 135-145 [facility]2018-05-07 09:36:00 Test Item Value Reference Range Interpretation Comments Glucose Lvl (test code = Glucose Lvl) 99 70-99 [facility]2018-05-07 09:36:00 Test Item Value Reference Range Interpretation Comments BUN (test code = BUN) 14 7-22 [facility]2018-05-07 09:36:00 Test Item Value Reference Range Interpretation Comments Alk Phos (test code = Alk Phos) 79 39-136 [facility]2018-05-07 09:36:00 Test Item Value Reference Range Interpretation Comments Bili Total (test code = Bili Total) 0.3 0.2-1.3 [facility]2018-05-07 09:36:00 Test Item Value Reference Range Interpretation Comments AST (test code = AST) 14 See_Comment [Auto mated message] The system which ge nerated this result transmit lester reference range : <=37. The reference range was not used to interpr et this result as dany l/abnormal. [facility]2018-05-07 09:36:00 Test Item Value Reference Range Interpretation Comments ALT (test code = ALT) 43 See_Comment [Auto mated message] The system which ge nerated this result transmit lester reference range : <=65. The reference range was not used to interpr et this result as dany l/abnormal. [facility]2018-05-07 09:36:00 Test Item Value Reference Range Interpretation Comments Total Protein (test code = Total 7.1 6.4-8.4 Protein) [facility]2018-05-07 09:36:00 Test Item Value Reference Range Interpretation Comments Albumin Lvl (test code = Albumin Lvl) 2.7 3.5-5.0 [facility]2018-05-07 09:36:00 Test Item Value Reference Range Interpretation Comments Calcium Lvl (test code = Calcium Lvl) 9.2 8.5-10.5 [facility]2018-05-07 09:36:00 Test Item Value Reference Range Interpretation Comments CO2 (test code = CO2) 21 24-32 [facility]2018-05-07 09:36:00 Test Item Value Reference Range Interpretation Comments Potassium Lvl (test code = Potassium 4.3 3.5-5.1 Lvl) [facility]2018-05-07 09:36:00 Test Item Value Reference Range Interpretation Comments Chloride Lvl (test code = Chloride Lvl) 114 95-109 [facility] CenterPqeixpbIAPIZALEJY2225-57-11 09:36:00 Test Item Value Reference Range Interpretation Comments MCHC (test code = MCHC) 32.5 32.0-36.0 [facility] CenterEwrvgujHVCZDBKRSH2638-18-85 09:36:00 Test Item Value Reference Range Interpretation Comments RDW (test code = RDW) 17.5 11.5-14.5 [facility] CenterLayyzjjAMWXJMIJZK7167-80-26 09:36:00 Test Item Value Reference Range Interpretation Comments Platelet (test code = Platelet) 400 133-450 [facility] CenterOiydgbcVWTFZELIDA1275-60-69 09:36:00 Test Item Value Reference Range Interpretation Comments MPV (test code = MPV) 8.5 7.4-10.4 [facility] CenterWqdpppeMJWLKZCAIR9567-97-34 09:36:00 Test Item Value Reference Range Interpretation Comments WBC (test code = WBC) 6.6 3.7-10.4 [facility] CenterIhstdzkQFIXKITQOH4706-22-16 09:36:00 Test Item Value Reference Range Interpretation Comments RBC (test code = RBC) 5.17 4.70-6.10 [facility] CenterBbjjdavOGFWLWTNYV2870-50-54 09:36:00 Test Item Value Reference Range Interpretation Comments MCV (test code = MCV) 86.1 80.0-94.0 [facility] CenterUkqljhsEHCZBDCBMY1099-08-98 09:36:00 Test Item Value Reference Range Interpretation Comments Hct (test code = Hct) 44.5 42.0-54.0 [facility] CenterBhxasiwGCOYONKAFF8004-06-04 09:36:00 Test Item Value Reference Range Interpretation Comments MCH (test code = MCH) 28.0 pg 27.0-31.0 [facility] CenterVzcopjfEOECABHNJA9485-11-79 09:36:00 Test Item Value Reference Range Interpretation Comments Hgb (test code = Hgb) 14.5 14.0-18.0 [facility] CenterFcuudewSWEAGABFOY7454-77-67 09:36:00 Test Item Value Reference Range Interpretation Comments Lymphocytes # (test code = Lymphocytes 1.7 1.0-5.5 #) [facility] CenterCkhvrldAEMQETABDH4470-11-25 09:36:00 Test Item Value Reference Range Interpretation Comments Monocytes # (test code 0.7 See_Comment [Aut omated message] The = Monocytes #) system which generated this result tra nsmitted reference range : <=0.8. The reference r boubacar was not used to int erpret this result as normal/abnormal . [facility] CenterDgibhpkWITVXVCGMZ4030-59-24 09:36:00 Test Item Value Reference Range Interpretation Comments Eosinophils # (test code 0.2 See_Comment [A utomated message] The = Eosinophils #) system whic h generated this result tra nsmitted reference range : <=0.5. The reference r boubacar was not used to int erpret this result as normal/abnormal . [facility] CenterPosbrfpRDWSGBPROS6401-43-83 09:36:00 Test Item Value Reference Range Interpretation Comments Lymphocytes (test code = Lymphocytes) 26.1 20.0-40.0 [facility] CenterBwttrxzBVAGLAUPBN3151-21-81 09:36:00 Test Item Value Reference Range Interpretation Comments Segs (test code = Segs) 59.3 45.0-75.0 [facility] CenterPluonnxHENDWBUQFH1911-96-92 09:36:00 Test Item Value Reference Range Interpretation Comments Basophils (test code = 0.8 See_Comment [Aut omated message] The Basophils) system which ge nerated this result tra nsmitted reference range : <=1.0. The reference r boubacar was not used to int erpret this result as normal/abnormal . [facility] CenterCardaodELXZMMPEBY2795-70-44 09:36:00 Test Item Value Reference Range Interpretation Comments Monocytes (test code = Monocytes) 10.5 2.0-12.0 [facility] CenterIimemevXEOSPINLDG6161-47-39 09:36:00 Test Item Value Reference Range Interpretation Comments Eosinophils (test code = 3.3 See_Comment [A utomated message] The Eosinophils) system which ge nerated this result tra nsmitted reference range : <=4.0. The reference r boubacar was not used to int erpret this result as normal/abnormal . [facility] CenterGikferuQACRZSTORU6853-01-21 09:36:00 Test Item Value Reference Range Interpretation Comments Segs-Bands # (test code = Segs-Bands #) 3.9 1.5-8.1 [facility] OUAJY5017-67-09 09:36:00 Test Item Value Reference Range Interpretation Comments Globulin (test code = Globulin) 4.4 2.7-4.2 [facility] TORNJ1603-10-59 09:36:00 Test Item Value Reference Range Interpretation Comments A/G Ratio (test code = A/G Ratio) 0.6 1 0.7-1.6 [place] 134218-05-07 09:36:00 Test Item Value Reference Range Interpretation Comments B/C Ratio (test code = B/C Ratio) 17 1 6-25 [place] 134218-05-07 09:36:00 Test Item Value Reference Range Interpretation Comments AGAP (test code = AGAP) 11.3 10.0-20.0 [place] [address]-05-07 09:36:00 Test Item Value Reference Range Interpretation Comments eGFR (test code = eGFR) 134 [place] 134218-05-07 09:36:00 Test Item Value Reference Range Interpretation Comments Creatinine Lvl (test code = Creatinine 0.84 0.50-1.40 Lvl) [place] 134218-05-07 09:36:00 Test Item Value Reference Range Interpretation Comments Sodium Lvl (test code = Sodium Lvl) 142 135-145 [place] 134218-05-07 09:36:00 Test Item Value Reference Range Interpretation Comments Glucose Lvl (test code = Glucose Lvl) 99 70-99 [place] 134218-05-07 09:36:00 Test Item Value Reference Range Interpretation Comments BUN (test code = BUN) 14 7-22 [place] 134218-05-07 09:36:00 Test Item Value Reference Range Interpretation Comments Alk Phos (test code = Alk Phos) 79 39-136 [place] 134218-05-07 09:36:00 Test Item Value Reference Range Interpretation Comments Bili Total (test code = Bili Total) 0.3 0.2-1.3 [place] 134218-05-07 09:36:00 Test Item Value Reference Range Interpretation Comments AST (test code = AST) 14 See_Comment [Auto mated message] The system which ge nerated this result transmit lester reference range : <=37. The reference range was not used to interpr et this result as dany l/abnormal. [place] 134218-05-07 09:36:00 Test Item Value Reference Range Interpretation Comments ALT (test code = ALT) 43 See_Comment [Auto mated message] The system which ge nerated this result transmit lester reference range : <=65. The reference range was not used to interpr et this result as dany l/abnormal. [facility]2018-05-07 09:36:00 Test Item Value Reference Range Interpretation Comments Total Protein (test code = Total 7.1 6.4-8.4 Protein) [facility]2018-05-07 09:36:00 Test Item Value Reference Range Interpretation Comments Albumin Lvl (test code = Albumin Lvl) 2.7 3.5-5.0 [place] 134218-05-07 09:36:00 Test Item Value Reference Range Interpretation Comments Calcium Lvl (test code = Calcium Lvl) 9.2 8.5-10.5 [facility]2018-05-07 09:36:00 Test Item Value Reference Range Interpretation Comments CO2 (test code = CO2) 21 24-32 [facility]2018-05-07 09:36:00 Test Item Value Reference Range Interpretation Comments Potassium Lvl (test code = Potassium 4.3 3.5-5.1 Lvl) [facility]2018-05-07 09:36:00 Test Item Value Reference Range Interpretation Comments Chloride Lvl (test code = Chloride Lvl) 114 95-109 [facility] CenterTfwomqtVFZLKJMYRK1401-06-99 09:36:00 Test Item Value Reference Range Interpretation Comments MCHC (test code = MCHC) 32.5 32.0-36.0 [facility] CenterKfpnolgAEYOMYTPIG7545-86-34 09:36:00 Test Item Value Reference Range Interpretation Comments RDW (test code = RDW) 17.5 11.5-14.5 [facility] CenterDnhpktkQQZLFISFBM1934-84-07 09:36:00 Test Item Value Reference Range Interpretation Comments Platelet (test code = Platelet) 400 133-450 [facility] CenterYuwbslhKZXINLATDX7184-14-34 09:36:00 Test Item Value Reference Range Interpretation Comments MPV (test code = MPV) 8.5 7.4-10.4 [facility] CenterSttqicdIUBALTZHYZ0000-36-10 09:36:00 Test Item Value Reference Range Interpretation Comments WBC (test code = WBC) 6.6 3.7-10.4 [facility] CenterFkztegoZZJKLJNVGO2804-48-19 09:36:00 Test Item Value Reference Range Interpretation Comments RBC (test code = RBC) 5.17 4.70-6.10 [place] 568088-05-07 09:36:00 Test Item Value Reference Range Interpretation Comments MCV (test code = MCV) 86.1 80.0-94.0 [facility] CenterYktimywZFFYGICBEF7891-55-65 09:36:00 Test Item Value Reference Range Interpretation Comments Hct (test code = Hct) 44.5 42.0-54.0 [facility] CenterBwlkefrHFZATEDDTI7553-86-06 09:36:00 Test Item Value Reference Range Interpretation Comments MCH (test code = MCH) 28.0 pg 27.0-31.0 [facility] CenterRzjalabQOKIILLYDQ4084-77-55 09:36:00 Test Item Value Reference Range Interpretation Comments Hgb (test code = Hgb) 14.5 14.0-18.0 [facility] CenterOargwvrTJGLDEDYYK3491-48-41 09:36:00 Test Item Value Reference Range Interpretation Comments Lymphocytes # (test code = Lymphocytes 1.7 1.0-5.5 #) [facility] CenterIriqoozFTOOMHVWHI8249-78-45 09:36:00 Test Item Value Reference Range Interpretation Comments Monocytes # (test code 0.7 See_Comment [Aut omated message] The = Monocytes #) system which generated this result tra nsmitted reference range : <=0.8. The reference r boubacar was not used to int erpret this result as normal/abnormal . [facility] CenterJdgzwcsIBXYNNIJQT3913-51-18 09:36:00 Test Item Value Reference Range Interpretation Comments Eosinophils # (test code 0.2 See_Comment [A utomated message] The = Eosinophils #) system whic h generated this result tra nsmitted reference range : <=0.5. The reference r boubacar was not used to int erpret this result as normal/abnormal . [facility] CenterBdmgmgxOAZYARVBLY1024-98-24 09:36:00 Test Item Value Reference Range Interpretation Comments Lymphocytes (test code = Lymphocytes) 26.1 20.0-40.0 [facility] CenterEkasnusPSABMOELYA2977-93-56 09:36:00 Test Item Value Reference Range Interpretation Comments Segs (test code = Segs) 59.3 45.0-75.0 [facility] CenterHvfjkufUUVPRJATIA8621-61-55 09:36:00 Test Item Value Reference Range Interpretation Comments Basophils (test code = 0.8 See_Comment [Aut omated message] The Basophils) system which ge nerated this result tra nsmitted reference range : <=1.0. The reference r boubacar was not used to int erpret this result as normal/abnormal . [facility] CenterElavyvrSJXGCSRBTS8850-10-14 09:36:00 Test Item Value Reference Range Interpretation Comments Monocytes (test code = Monocytes) 10.5 2.0-12.0 [facility] CenterBaaydmuEAMMDJKEEL0396-24-70 09:36:00 Test Item Value Reference Range Interpretation Comments Eosinophils (test code = 3.3 See_Comment [A utomated message] The Eosinophils) system which ge nerated this result tra nsmitted reference range : <=4.0. The reference r boubacar was not used to int erpret this result as normal/abnormal . [facility] CenterSajqspcAPNTFZRCKQ8691-97-19 09:36:00 Test Item Value Reference Range Interpretation Comments Segs-Bands # (test code = Segs-Bands #) 3.9 1.5-8.1 [facility]SykpktiMHCRMZFSHP0341-55-35 21:02:00 Test Item Value Reference Range Interpretation Comments Vanco Tr TND (test code = Vanco Tr 15:30pm TND) [facility]cxqvyeEYZGWLTDNX9052-00-10 21:02:00 Test Item Value Reference Range Interpretation Comments Vanco Tr (test code = Vanco Tr) 9.1 [facility]RbjmntnWJFTMBKGHC5958-66-69 21:02:00 Test Item Value Reference Range Interpretation Comments Vanco Tr TND (test code = Vanco Tr 15:30pm TND) [facility]FmyrtlwDYPDMKTISR3335-64-04 21:02:00 Test Item Value Reference Range Interpretation Comments Vanco Tr (test code = Vanco Tr) 9.1 [facility] CenterZdalgcwOPZSATGAVK0413-58-99 21:02:00 Test Item Value Reference Range Interpretation Comments Vanco Tr TND (test code = Vanco Tr 15:30pm TND) [facility] CenterVhxkrasTYFETHOAKK4297-50-00 21:02:00 Test Item Value Reference Range Interpretation Comments Vanco Tr (test code = Vanco Tr) 9.1 [facility] CenterLvvumdwCMUHMYJPMT1628-39-86 21:02:00 Test Item Value Reference Range Interpretation Comments Vanco Tr TND (test code = Vanco Tr 15:30pm TND) [facility] CenterLsmanyyKGHXVXVJLG4429-50-33 21:02:00 Test Item Value Reference Range Interpretation Comments Vanco Tr (test code = Vanco Tr) 9.1 [facility]2018-05-06 07:07:00 Test Item Value Reference Range Interpretation Comments Glucose Lvl (test code = Glucose Lvl) 74 70-99 [facility]2018-05-06 07:07:00 Test Item Value Reference Range Interpretation Comments BUN (test code = BUN) 12 7-22 [facility]2018-05-06 07:07:00 Test Item Value Reference Range Interpretation Comments Creatinine Lvl (test code = Creatinine 0.75 0.50-1.40 Lvl) [facility]2018-05-06 07:07:00 Test Item Value Reference Range Interpretation Comments eGFR (test code = eGFR) 140 [facility]2018-05-06 07:07:00 Test Item Value Reference Range Interpretation Comments Albumin Lvl (test code = Albumin Lvl) 2.9 3.5-5.0 [facility]2018-05-06 07:07:00 Test Item Value Reference Range Interpretation Comments Globulin (test code = Globulin) 4.4 2.7-4.2 [place] 134218-05-06 07:07:00 Test Item Value Reference Range Interpretation Comments A/G Ratio (test code = A/G Ratio) 0.7 1 0.7-1.6 [facility]2018-05-06 07:07:00 Test Item Value Reference Range Interpretation Comments Bili Total (test code = Bili Total) 0.4 0.2-1.3 [facility]2018-05-06 07:07:00 Test Item Value Reference Range Interpretation Comments Alk Phos (test code = Alk Phos) 71 39-136 [place] 134218-05-06 07:07:00 Test Item Value Reference Range Interpretation Comments AST (test code = AST) 15 See_Comment [Auto mated message] The system which ge nerated this result transmit lester reference range : <=37. The reference range was not used to interpr et this result as dany l/abnormal. [facility]2018-05-06 07:07:00 Test Item Value Reference Range Interpretation Comments ALT (test code = ALT) 28 See_Comment [Auto mated message] The system which ge nerated this result transmit lester reference range : <=65. The reference range was not used to interpr et this result as dany l/abnormal. [facility]2018-05-06 07:07:00 Test Item Value Reference Range Interpretation Comments Potassium Lvl (test code = Potassium 4.4 3.5-5.1 Lvl) [facility]2018-05-06 07:07:00 Test Item Value Reference Range Interpretation Comments Sodium Lvl (test code = Sodium Lvl) 147 135-145 [facility]2018-05-06 07:07:00 Test Item Value Reference Range Interpretation Comments CO2 (test code = CO2) 25 24-32 [facility]2018-05-06 07:07:00 Test Item Value Reference Range Interpretation Comments Chloride Lvl (test code = Chloride Lvl) 114 95-109 [facility]2018-05-06 07:07:00 Test Item Value Reference Range Interpretation Comments B/C Ratio (test code = B/C Ratio) 16 1 6-25 [place] 134218-05-06 07:07:00 Test Item Value Reference Range Interpretation Comments Calcium Lvl (test code = Calcium Lvl) 8.7 8.5-10.5 [facility]2018-05-06 07:07:00 Test Item Value Reference Range Interpretation Comments AGAP (test code = AGAP) 12.4 10.0-20.0 [facility]2018-05-06 07:07:00 Test Item Value Reference Range Interpretation Comments Total Protein (test code = Total 7.3 6.4-8.4 Protein) [facility] CenterGkzxvgdXBNUYCSAIG8422-73-06 07:07:00 Test Item Value Reference Range Interpretation Comments Platelet (test code = Platelet) 345 133-450 [facility] CenterCaonmkrVXPYSWSRLL4174-81-12 07:07:00 Test Item Value Reference Range Interpretation Comments MPV (test code = MPV) 8.7 7.4-10.4 [facility] CenterHttnmrgPKDFYBMOEL3380-28-10 07:07:00 Test Item Value Reference Range Interpretation Comments WBC (test code = WBC) 6.9 3.7-10.4 [place] 568088-05-06 07:07:00 Test Item Value Reference Range Interpretation Comments RBC (test code = RBC) 5.30 4.70-6.10 [facility] CenterNjnyicaDYWCVCGFKQ1530-22-74 07:07:00 Test Item Value Reference Range Interpretation Comments MCHC (test code = MCHC) 32.8 32.0-36.0 [facility] CenterOtcrdlqAMHHXIBJGJ1921-97-73 07:07:00 Test Item Value Reference Range Interpretation Comments MCH (test code = MCH) 27.9 pg 27.0-31.0 [facility] CenterByfhzogRUSAWZAHGD2965-85-03 07:07:00 Test Item Value Reference Range Interpretation Comments Hgb (test code = Hgb) 14.8 14.0-18.0 [facility] CenterYpgilhnFCXRWEOIGF8874-16-65 07:07:00 Test Item Value Reference Range Interpretation Comments MCV (test code = MCV) 85.0 80.0-94.0 [facility] CenterLrgyizgHNEJXYMSIU2278-38-38 07:07:00 Test Item Value Reference Range Interpretation Comments Hct (test code = Hct) 45.1 42.0-54.0 [facility] CenterMopokqoZRCMYLEONT1279-55-55 07:07:00 Test Item Value Reference Range Interpretation Comments RDW (test code = RDW) 17.5 11.5-14.5 [facility] CenterWwwntlwDQDVMAAGMU2044-57-85 07:07:00 Test Item Value Reference Range Interpretation Comments Eosinophils # (test code 0.2 See_Comment [A utomated message] The = Eosinophils #) system whic h generated this result tra nsmitted reference range : <=0.5. The reference r boubacar was not used to int erpret this result as normal/abnormal . [facility] CenterYhxifizYWHWNLFOMR6374-83-59 07:07:00 Test Item Value Reference Range Interpretation Comments Lymphocytes # (test code = Lymphocytes 2.0 1.0-5.5 #) [facility] CenterKxvqtfsVWKAMBGWWT2182-15-65 07:07:00 Test Item Value Reference Range Interpretation Comments Monocytes # (test code 0.7 See_Comment [Aut omated message] The = Monocytes #) system which generated this result tra nsmitted reference range : <=0.8. The reference r boubacar was not used to int erpret this result as normal/abnormal . [facility] CenterHhzyohdWIRBRPOWMG4695-01-55 07:07:00 Test Item Value Reference Range Interpretation Comments Eosinophils (test code = 2.4 See_Comment [A utomated message] The Eosinophils) system which ge nerated this result tra nsmitted reference range : <=4.0. The reference r boubacar was not used to int erpret this result as normal/abnormal . [facility] CenterXjomkxmXXHBIJQBDB3627-59-32 07:07:00 Test Item Value Reference Range Interpretation Comments Basophils (test code = 0.6 See_Comment [Aut omated message] The Basophils) system which ge nerated this result tra nsmitted reference range : <=1.0. The reference r boubacar was not used to int erpret this result as normal/abnormal . [facility] CenterBmyshtvOMUWBAKXVC9426-00-23 07:07:00 Test Item Value Reference Range Interpretation Comments Segs-Bands # (test code = Segs-Bands #) 4.0 1.5-8.1 [facility] CenterEpwjohlUSLATTNDSY3760-72-54 07:07:00 Test Item Value Reference Range Interpretation Comments Monocytes (test code = Monocytes) 10.4 2.0-12.0 [facility] CenterQnodpieRGZLTYKBMY6997-79-03 07:07:00 Test Item Value Reference Range Interpretation Comments RBC Morph (test code = Normal (11/17/17 2:07 AM) RBC Morph) [facility] CenterAigfhwbRWNDAYXLLH5511-69-64 07:07:00 Test Item Value Reference Range Interpretation Comments Segs (test code = Segs) 58.1 45.0-75.0 [facility] CenterDwkjgbwDNBNOHTQEF7556-99-00 07:07:00 Test Item Value Reference Range Interpretation Comments Plt Morph (test code = Normal (11/17/17 2:07 AM) Plt Morph) [facility] CenterXpcxagdTSZVPTLKTU3927-26-11 07:07:00 Test Item Value Reference Range Interpretation Comments Lymphocytes (test code = Lymphocytes) 28.5 20.0-40.0 [facility]2018-05-06 07:07:00 Test Item Value Reference Range Interpretation Comments Glucose Lvl (test code = Glucose Lvl) 74 70-99 [facility]2018-05-06 07:07:00 Test Item Value Reference Range Interpretation Comments BUN (test code = BUN) 12 7-22 [facility]2018-05-06 07:07:00 Test Item Value Reference Range Interpretation Comments Creatinine Lvl (test code = Creatinine 0.75 0.50-1.40 Lvl) [facility]2018-05-06 07:07:00 Test Item Value Reference Range Interpretation Comments eGFR (test code = eGFR) 140 [facility]2018-05-06 07:07:00 Test Item Value Reference Range Interpretation Comments Albumin Lvl (test code = Albumin Lvl) 2.9 3.5-5.0 [place] 134218-05-06 07:07:00 Test Item Value Reference Range Interpretation Comments Globulin (test code = Globulin) 4.4 2.7-4.2 [place] 134218-05-06 07:07:00 Test Item Value Reference Range Interpretation Comments A/G Ratio (test code = A/G Ratio) 0.7 1 0.7-1.6 [place] [address]-05-06 07:07:00 Test Item Value Reference Range Interpretation Comments Bili Total (test code = Bili Total) 0.4 0.2-1.3 [place] 134218-05-06 07:07:00 Test Item Value Reference Range Interpretation Comments Alk Phos (test code = Alk Phos) 71 39-136 [place] 134218-05-06 07:07:00 Test Item Value Reference Range Interpretation Comments AST (test code = AST) 15 See_Comment [Auto mated message] The system which ge nerated this result transmit lester reference range : <=37. The reference range was not used to interpr et this result as dany l/abnormal. [facility]2018-05-06 07:07:00 Test Item Value Reference Range Interpretation Comments ALT (test code = ALT) 28 See_Comment [Auto mated message] The system which ge nerated this result transmit lester reference range : <=65. The reference range was not used to interpr et this result as dany l/abnormal. [place] 134218-05-06 07:07:00 Test Item Value Reference Range Interpretation Comments Potassium Lvl (test code = Potassium 4.4 3.5-5.1 Lvl) [place] 134218-05-06 07:07:00 Test Item Value Reference Range Interpretation Comments Sodium Lvl (test code = Sodium Lvl) 147 135-145 [place] 134218-05-06 07:07:00 Test Item Value Reference Range Interpretation Comments CO2 (test code = CO2) 25 24-32 [facility]2018-05-06 07:07:00 Test Item Value Reference Range Interpretation Comments Chloride Lvl (test code = Chloride Lvl) 114 95-109 [place] 134218-05-06 07:07:00 Test Item Value Reference Range Interpretation Comments B/C Ratio (test code = B/C Ratio) 16 1 6-25 [place] 134218-05-06 07:07:00 Test Item Value Reference Range Interpretation Comments Calcium Lvl (test code = Calcium Lvl) 8.7 8.5-10.5 [facility]2018-05-06 07:07:00 Test Item Value Reference Range Interpretation Comments AGAP (test code = AGAP) 12.4 10.0-20.0 [facility]2018-05-06 07:07:00 Test Item Value Reference Range Interpretation Comments Total Protein (test code = Total 7.3 6.4-8.4 Protein) [facility] CenterQviscvcODMAJEGVCR1784-55-25 07:07:00 Test Item Value Reference Range Interpretation Comments Platelet (test code = Platelet) 345 133-450 [facility] CenterItbcrrrRJAYIJCIIW1907-37-65 07:07:00 Test Item Value Reference Range Interpretation Comments MPV (test code = MPV) 8.7 7.4-10.4 [facility] CenterAhnjjhfDPUHILMIRN0281-29-10 07:07:00 Test Item Value Reference Range Interpretation Comments WBC (test code = WBC) 6.9 3.7-10.4 [facility] CenterPhyoeodMHEXDVSISX6819-85-35 07:07:00 Test Item Value Reference Range Interpretation Comments RBC (test code = RBC) 5.30 4.70-6.10 [place] 568088-05-06 07:07:00 Test Item Value Reference Range Interpretation Comments MCHC (test code = MCHC) 32.8 32.0-36.0 [facility] CenterEeqswzdXCIIXQEWGK6731-82-52 07:07:00 Test Item Value Reference Range Interpretation Comments MCH (test code = MCH) 27.9 pg 27.0-31.0 [place] 568088-05-06 07:07:00 Test Item Value Reference Range Interpretation Comments Hgb (test code = Hgb) 14.8 14.0-18.0 [facility] CenterWirbvjmCIZTUEMDEA2089-64-47 07:07:00 Test Item Value Reference Range Interpretation Comments MCV (test code = MCV) 85.0 80.0-94.0 [facility] CenterSmrxfziZRVLXUDLOD5566-64-43 07:07:00 Test Item Value Reference Range Interpretation Comments Hct (test code = Hct) 45.1 42.0-54.0 [facility] CenterSbsdeswXFYFESOHUX2407-03-97 07:07:00 Test Item Value Reference Range Interpretation Comments RDW (test code = RDW) 17.5 11.5-14.5 [facility] CenterMedrmziQCDLXJRRMK7973-85-43 07:07:00 Test Item Value Reference Range Interpretation Comments Eosinophils # (test code 0.2 See_Comment [A utomated message] The = Eosinophils #) system whic h generated this result tra nsmitted reference range : <=0.5. The reference r boubacar was not used to int erpret this result as normal/abnormal . [facility] CenterIrewqqtOCHAMASZSP8166-11-95 07:07:00 Test Item Value Reference Range Interpretation Comments Lymphocytes # (test code = Lymphocytes 2.0 1.0-5.5 #) [facility] CenterEjexdxzBICWZQRFNB5606-56-38 07:07:00 Test Item Value Reference Range Interpretation Comments Monocytes # (test code 0.7 See_Comment [Aut omated message] The = Monocytes #) system which generated this result tra nsmitted reference range : <=0.8. The reference r boubacar was not used to int erpret this result as normal/abnormal . [facility] CenterAowytzeYPJZVNOGPS0316-29-41 07:07:00 Test Item Value Reference Range Interpretation Comments Eosinophils (test code = 2.4 See_Comment [A utomated message] The Eosinophils) system which ge nerated this result tra nsmitted reference range : <=4.0. The reference r boubacar was not used to int erpret this result as normal/abnormal . [facility] CenterHzjjcqqXNUNUUSPJD9518-96-03 07:07:00 Test Item Value Reference Range Interpretation Comments Basophils (test code = 0.6 See_Comment [Aut omated message] The Basophils) system which ge nerated this result tra nsmitted reference range : <=1.0. The reference r boubacar was not used to int erpret this result as normal/abnormal . [facility] CenterAkhopcgEAUSZZEVGO6460-56-07 07:07:00 Test Item Value Reference Range Interpretation Comments Segs-Bands # (test code = Segs-Bands #) 4.0 1.5-8.1 [facility] CenterNczcolbJDNNNTVOQV5594-30-61 07:07:00 Test Item Value Reference Range Interpretation Comments Monocytes (test code = Monocytes) 10.4 2.0-12.0 [facility] CenterMqrfsybJTXRVSYDXL8245-21-91 07:07:00 Test Item Value Reference Range Interpretation Comments RBC Morph (test code = Normal (11/17/17 2:07 AM) RBC Morph) [facility] CenterPfxfdhfFRTBLJIODX7159-69-18 07:07:00 Test Item Value Reference Range Interpretation Comments Segs (test code = Segs) 58.1 45.0-75.0 [place] 568088-05-06 07:07:00 Test Item Value Reference Range Interpretation Comments Plt Morph (test code = Normal (11/17/17 2:07 AM) Plt Morph) [facility] CenterBrbuwgcJTWIBVBLXC1290-10-98 07:07:00 Test Item Value Reference Range Interpretation Comments Lymphocytes (test code = Lymphocytes) 28.5 20.0-40.0 [facility]2018-05-06 07:07:00 Test Item Value Reference Range Interpretation Comments Glucose Lvl (test code = Glucose Lvl) 74 70-99 [facility]2018-05-06 07:07:00 Test Item Value Reference Range Interpretation Comments BUN (test code = BUN) 12 7-22 [facility]2018-05-06 07:07:00 Test Item Value Reference Range Interpretation Comments Creatinine Lvl (test code = Creatinine 0.75 0.50-1.40 Lvl) [facility]2018-05-06 07:07:00 Test Item Value Reference Range Interpretation Comments eGFR (test code = eGFR) 140 [facility]2018-05-06 07:07:00 Test Item Value Reference Range Interpretation Comments Albumin Lvl (test code = Albumin Lvl) 2.9 3.5-5.0 [facility]2018-05-06 07:07:00 Test Item Value Reference Range Interpretation Comments Globulin (test code = Globulin) 4.4 2.7-4.2 [place] 134218-05-06 07:07:00 Test Item Value Reference Range Interpretation Comments A/G Ratio (test code = A/G Ratio) 0.7 1 0.7-1.6 [place] 134218-05-06 07:07:00 Test Item Value Reference Range Interpretation Comments Bili Total (test code = Bili Total) 0.4 0.2-1.3 [place] 134218-05-06 07:07:00 Test Item Value Reference Range Interpretation Comments Alk Phos (test code = Alk Phos) 71 39-136 [place] [address]-05-06 07:07:00 Test Item Value Reference Range Interpretation Comments AST (test code = AST) 15 See_Comment [Auto mated message] The system which ge nerated this result transmit lester reference range : <=37. The reference range was not used to interpr et this result as dany l/abnormal. [place] [address]-05-06 07:07:00 Test Item Value Reference Range Interpretation Comments ALT (test code = ALT) 28 See_Comment [Auto mated message] The system which ge nerated this result transmit lester reference range : <=65. The reference range was not used to interpr et this result as dany l/abnormal. [place] 134218-05-06 07:07:00 Test Item Value Reference Range Interpretation Comments Potassium Lvl (test code = Potassium 4.4 3.5-5.1 Lvl) [place] 134218-05-06 07:07:00 Test Item Value Reference Range Interpretation Comments Sodium Lvl (test code = Sodium Lvl) 147 135-145 [place] 134218-05-06 07:07:00 Test Item Value Reference Range Interpretation Comments CO2 (test code = CO2) 25 24-32 [place] 134218-05-06 07:07:00 Test Item Value Reference Range Interpretation Comments Chloride Lvl (test code = Chloride Lvl) 114 95-109 [place] 134218-05-06 07:07:00 Test Item Value Reference Range Interpretation Comments B/C Ratio (test code = B/C Ratio) 16 1 6-25 [place] 134218-05-06 07:07:00 Test Item Value Reference Range Interpretation Comments Calcium Lvl (test code = Calcium Lvl) 8.7 8.5-10.5 [facility]2018-05-06 07:07:00 Test Item Value Reference Range Interpretation Comments AGAP (test code = AGAP) 12.4 10.0-20.0 [facility]2018-05-06 07:07:00 Test Item Value Reference Range Interpretation Comments Total Protein (test code = Total 7.3 6.4-8.4 Protein) [facility] CenterNkxxwknMKNSUTNLDY8269-40-87 07:07:00 Test Item Value Reference Range Interpretation Comments Platelet (test code = Platelet) 345 133-450 [facility] CenterLonnbzaBKQTMIZSGX5900-34-17 07:07:00 Test Item Value Reference Range Interpretation Comments MPV (test code = MPV) 8.7 7.4-10.4 [facility] CenterHrutdwyPWJLEKDFEL8466-83-65 07:07:00 Test Item Value Reference Range Interpretation Comments WBC (test code = WBC) 6.9 3.7-10.4 [facility] CenterJnzwdnuOMBILJPDVT4033-64-95 07:07:00 Test Item Value Reference Range Interpretation Comments RBC (test code = RBC) 5.30 4.70-6.10 [facility] CenterEwgwoujBNVMTRKECU7094-34-26 07:07:00 Test Item Value Reference Range Interpretation Comments MCHC (test code = MCHC) 32.8 32.0-36.0 [facility] CenterKbwtzkdDQMFIMXDFQ9176-54-29 07:07:00 Test Item Value Reference Range Interpretation Comments MCH (test code = MCH) 27.9 pg 27.0-31.0 [facility] CenterUirinqzWULYVWBGVF0927-55-75 07:07:00 Test Item Value Reference Range Interpretation Comments Hgb (test code = Hgb) 14.8 14.0-18.0 [facility] CenterPacpmhmBVVYSAZXVW8929-69-54 07:07:00 Test Item Value Reference Range Interpretation Comments MCV (test code = MCV) 85.0 80.0-94.0 [facility] CenterZsqazjhDHUJFCZLBV6071-65-93 07:07:00 Test Item Value Reference Range Interpretation Comments Hct (test code = Hct) 45.1 42.0-54.0 [place] [id number] 07:07:00 Test Item Value Reference Range Interpretation Comments RDW (test code = RDW) 17.5 11.5-14.5 [facility] CenterAaboniwBLUAOZSYQI0218-80-77 07:07:00 Test Item Value Reference Range Interpretation Comments Eosinophils # (test code 0.2 See_Comment [A utomated message] The = Eosinophils #) system whic h generated this result tra nsmitted reference range : <=0.5. The reference r boubacar was not used to int erpret this result as normal/abnormal . [facility] CenterOwabnvjTLJYJBWAHB1322-85-58 07:07:00 Test Item Value Reference Range Interpretation Comments Lymphocytes # (test code = Lymphocytes 2.0 1.0-5.5 #) [facility] CenterAducpljZNDBGZOQWK1536-76-51 07:07:00 Test Item Value Reference Range Interpretation Comments Monocytes # (test code 0.7 See_Comment [Aut omated message] The = Monocytes #) system which generated this result tra nsmitted reference range : <=0.8. The reference r boubacar was not used to int erpret this result as normal/abnormal . [facility] CenterBnvcepfTBCNTEWCXK2500-66-22 07:07:00 Test Item Value Reference Range Interpretation Comments Eosinophils (test code = 2.4 See_Comment [A utomated message] The Eosinophils) system which ge nerated this result tra nsmitted reference range : <=4.0. The reference r boubacar was not used to int erpret this result as normal/abnormal . [facility] CenterPldjkdhMFVBBCZXMP9019-29-53 07:07:00 Test Item Value Reference Range Interpretation Comments Basophils (test code = 0.6 See_Comment [Aut omated message] The Basophils) system which ge nerated this result tra nsmitted reference range : <=1.0. The reference r boubacar was not used to int erpret this result as normal/abnormal . [facility] CenterPnyykkyOSMEVAKZRW3556-86-15 07:07:00 Test Item Value Reference Range Interpretation Comments Segs-Bands # (test code = Segs-Bands #) 4.0 1.5-8.1 [facility] CenterMwhhfztXPIVXZVDKO4345-07-69 07:07:00 Test Item Value Reference Range Interpretation Comments Monocytes (test code = Monocytes) 10.4 2.0-12.0 [facility] CenterPqlqdhhVOYIVZWYXI1899-20-23 07:07:00 Test Item Value Reference Range Interpretation Comments RBC Morph (test code = Normal (11/17/17 2:07 AM) RBC Morph) [facility] CenterCtmscmvBNLXSSFLZV2729-83-73 07:07:00 Test Item Value Reference Range Interpretation Comments Segs (test code = Segs) 58.1 45.0-75.0 [facility] CenterWweptnmVMFIMMEBWT5049-41-02 07:07:00 Test Item Value Reference Range Interpretation Comments Plt Morph (test code = Normal (11/17/17 2:07 AM) Plt Morph) [facility] CenterUupggaySHKZYBEBLP1594-87-57 07:07:00 Test Item Value Reference Range Interpretation Comments Lymphocytes (test code = Lymphocytes) 28.5 20.0-40.0 [facility]2018-05-06 07:07:00 Test Item Value Reference Range Interpretation Comments Glucose Lvl (test code = Glucose Lvl) 74 70-99 [facility]2018-05-06 07:07:00 Test Item Value Reference Range Interpretation Comments BUN (test code = BUN) 12 7-22 [facility]2018-05-06 07:07:00 Test Item Value Reference Range Interpretation Comments Creatinine Lvl (test code = Creatinine 0.75 0.50-1.40 Lvl) [facility]2018-05-06 07:07:00 Test Item Value Reference Range Interpretation Comments eGFR (test code = eGFR) 140 [facility]2018-05-06 07:07:00 Test Item Value Reference Range Interpretation Comments Albumin Lvl (test code = Albumin Lvl) 2.9 3.5-5.0 [facility]2018-05-06 07:07:00 Test Item Value Reference Range Interpretation Comments Globulin (test code = Globulin) 4.4 2.7-4.2 [facility]2018-05-06 07:07:00 Test Item Value Reference Range Interpretation Comments A/G Ratio (test code = A/G Ratio) 0.7 1 0.7-1.6 [facility]2018-05-06 07:07:00 Test Item Value Reference Range Interpretation Comments Bili Total (test code = Bili Total) 0.4 0.2-1.3 [facility]2018-05-06 07:07:00 Test Item Value Reference Range Interpretation Comments Alk Phos (test code = Alk Phos) 71 39-136 [facility]2018-05-06 07:07:00 Test Item Value Reference Range Interpretation Comments AST (test code = AST) 15 See_Comment [Auto mated message] The system which ge nerated this result transmit lester reference range : <=37. The reference range was not used to interpr et this result as dany l/abnormal. [place] 134218-05-06 07:07:00 Test Item Value Reference Range Interpretation Comments ALT (test code = ALT) 28 See_Comment [Auto mated message] The system which ge nerated this result transmit lester reference range : <=65. The reference range was not used to interpr et this result as dany l/abnormal. [facility]2018-05-06 07:07:00 Test Item Value Reference Range Interpretation Comments Potassium Lvl (test code = Potassium 4.4 3.5-5.1 Lvl) [facility]2018-05-06 07:07:00 Test Item Value Reference Range Interpretation Comments Sodium Lvl (test code = Sodium Lvl) 147 135-145 [facility]2018-05-06 07:07:00 Test Item Value Reference Range Interpretation Comments CO2 (test code = CO2) 25 24-32 [facility]2018-05-06 07:07:00 Test Item Value Reference Range Interpretation Comments Chloride Lvl (test code = Chloride Lvl) 114 95-109 [facility]2018-05-06 07:07:00 Test Item Value Reference Range Interpretation Comments B/C Ratio (test code = B/C Ratio) 16 1 6-25 [facility]2018-05-06 07:07:00 Test Item Value Reference Range Interpretation Comments Calcium Lvl (test code = Calcium Lvl) 8.7 8.5-10.5 [facility]2018-05-06 07:07:00 Test Item Value Reference Range Interpretation Comments AGAP (test code = AGAP) 12.4 10.0-20.0 [facility]2018-05-06 07:07:00 Test Item Value Reference Range Interpretation Comments Total Protein (test code = Total 7.3 6.4-8.4 Protein) [facility] CenterLljsvfgYSVDVBXNIN4324-28-42 07:07:00 Test Item Value Reference Range Interpretation Comments Platelet (test code = Platelet) 345 133-450 [facility] CenterLrfzhmzRLWJXYILZS1528-09-80 07:07:00 Test Item Value Reference Range Interpretation Comments MPV (test code = MPV) 8.7 7.4-10.4 [facility] CenterYodxravYHZNMCZIHE1473-15-12 07:07:00 Test Item Value Reference Range Interpretation Comments WBC (test code = WBC) 6.9 3.7-10.4 [facility] CenterNmfuvuyFDLYDTWVRU8350-11-83 07:07:00 Test Item Value Reference Range Interpretation Comments RBC (test code = RBC) 5.30 4.70-6.10 [facility] CenterSjiormwOBMPMHVDYC8204-56-87 07:07:00 Test Item Value Reference Range Interpretation Comments MCHC (test code = MCHC) 32.8 32.0-36.0 [facility] CenterZztmcxdJEBXGJPSHV4618-63-82 07:07:00 Test Item Value Reference Range Interpretation Comments MCH (test code = MCH) 27.9 pg 27.0-31.0 [facility] CenterKfuzpveHVMERXFRGG3420-24-25 07:07:00 Test Item Value Reference Range Interpretation Comments Hgb (test code = Hgb) 14.8 14.0-18.0 [facility] CenterPkrzcakDNVRPFKCHQ3521-70-23 07:07:00 Test Item Value Reference Range Interpretation Comments MCV (test code = MCV) 85.0 80.0-94.0 [facility] CenterBlmnfkoXBLQFYORNH4717-20-54 07:07:00 Test Item Value Reference Range Interpretation Comments Hct (test code = Hct) 45.1 42.0-54.0 [facility] CenterCmeotwzJANAHSQJLY1897-13-88 07:07:00 Test Item Value Reference Range Interpretation Comments RDW (test code = RDW) 17.5 11.5-14.5 [facility] CenterTftnmsxWTHWYKHUSF7842-10-21 07:07:00 Test Item Value Reference Range Interpretation Comments Eosinophils # (test code 0.2 See_Comment [A utomated message] The = Eosinophils #) system whic h generated this result tra nsmitted reference range : <=0.5. The reference r boubacar was not used to int erpret this result as normal/abnormal . [facility] CenterFhmklhzHNOLPITMEQ1045-33-28 07:07:00 Test Item Value Reference Range Interpretation Comments Lymphocytes # (test code = Lymphocytes 2.0 1.0-5.5 #) [facility] CenterXymbhqcJOACASASWD5468-12-27 07:07:00 Test Item Value Reference Range Interpretation Comments Monocytes # (test code 0.7 See_Comment [Aut omated message] The = Monocytes #) system which generated this result tra nsmitted reference range : <=0.8. The reference r boubacar was not used to int erpret this result as normal/abnormal . [facility] CenterPktuqolMUYCDSQRNM4304-53-42 07:07:00 Test Item Value Reference Range Interpretation Comments Eosinophils (test code = 2.4 See_Comment [A utomated message] The Eosinophils) system which ge nerated this result tra nsmitted reference range : <=4.0. The reference r boubacar was not used to int erpret this result as normal/abnormal . [facility] CenterSrtvezjWAMGAYCUFU6507-20-01 07:07:00 Test Item Value Reference Range Interpretation Comments Basophils (test code = 0.6 See_Comment [Aut omated message] The Basophils) system which ge nerated this result tra nsmitted reference range : <=1.0. The reference r boubacar was not used to int erpret this result as normal/abnormal . [facility] CenterFfsvnizCROFQSCXSV4033-03-35 07:07:00 Test Item Value Reference Range Interpretation Comments Segs-Bands # (test code = Segs-Bands #) 4.0 1.5-8.1 [facility] CenterQrmxsssECDAGEGLLJ9488-52-52 07:07:00 Test Item Value Reference Range Interpretation Comments Monocytes (test code = Monocytes) 10.4 2.0-12.0 [facility] CenterDqqbzvoGZTJGGLAMQ9488-75-33 07:07:00 Test Item Value Reference Range Interpretation Comments RBC Morph (test code = Normal (11/17/17 2:07 AM) RBC Morph) [facility] CenterYhcgoylZOKJEKEYDV4699-15-95 07:07:00 Test Item Value Reference Range Interpretation Comments Segs (test code = Segs) 58.1 45.0-75.0 [facility] CenterDlkynqyAPYHXBJYXB1203-60-99 07:07:00 Test Item Value Reference Range Interpretation Comments Plt Morph (test code = Normal (11/17/17 2:07 AM) Plt Morph) [facility] CenterSbbhzmaVFFAAGFMRT0198-77-66 07:07:00 Test Item Value Reference Range Interpretation Comments Lymphocytes (test code = Lymphocytes) 28.5 20.0-40.0 [facility] CenterEmzlcxpRYYUUEELAL4112-12-55 16:07:00 Test Item Value Reference Range Interpretation Comments Basophils # (test code 0.1 See_Comment [Aut omated message] The = Basophils #) system which generated this result tra nsmitted reference range : <=0.2. The reference r boubacar was not used to int erpret this result as normal/abnormal . [facility] CenterCydjjdzVUPANFJHMR9533-45-97 16:07:00 Test Item Value Reference Range Interpretation Comments Polychrom (test code = Moderate *ABN*(11/16/17 Polychrom) 11:07 AM) [facility] CenterObbkqgsWRCWJYXCRB0666-26-86 16:07:00 Test Item Value Reference Range Interpretation Comments Basophils # (test code 0.1 See_Comment [Aut omated message] The = Basophils #) system which generated this result tra nsmitted reference range : <=0.2. The reference r boubacar was not used to int erpret this result as normal/abnormal . [facility] CenterNzjwkfbVUEADYQFEE5899-25-34 16:07:00 Test Item Value Reference Range Interpretation Comments Polychrom (test code = Moderate *ABN*(11/16/17 Polychrom) 11:07 AM) [facility] CenterWjzrcjfBKESLRHSWO7006-79-18 16:07:00 Test Item Value Reference Range Interpretation Comments Basophils # (test code 0.1 See_Comment [Aut omated message] The = Basophils #) system which generated this result tra nsmitted reference range : <=0.2. The reference r boubacar was not used to int erpret this result as normal/abnormal . [facility] CenterGarqiaxXDMLNAQJHA4440-05-44 16:07:00 Test Item Value Reference Range Interpretation Comments Polychrom (test code = Moderate *ABN*(11/16/17 Polychrom) 11:07 AM) [facility] CenterNykimpbTYBWFGEKZQ7643-73-87 16:07:00 Test Item Value Reference Range Interpretation Comments Basophils # (test code 0.1 See_Comment [Aut omated message] The = Basophils #) system which generated this result tra nsmitted reference range : <=0.2. The reference r boubacar was not used to int erpret this result as normal/abnormal . [facility] CenterHmjkfucTHBOMBNYRW3693-51-03 16:07:00 Test Item Value Reference Range Interpretation Comments Polychrom (test code = Moderate *ABN*(11/16/17 Polychrom) 11:07 AM) [facility] NxzbrruOTXNAHLSCS8903-72-79 06:43:00 Test Item Value Reference Range Interpretation Comments Vanco Tr TND (test code = Vanco Tr TND) * [facility] EeavpyyJSPQLGNMCC7424-85-58 06:43:00 Test Item Value Reference Range Interpretation Comments Vanco Tr (test code = Vanco Tr) 22.3 [facility] UmfwiwiNEMGTELCGL0215-70-49 06:43:00 Test Item Value Reference Range Interpretation Comments Vanco Tr TND (test code = Vanco Tr TND) * [facility] FyhmddrHNDYTKSJTI7447-26-76 06:43:00 Test Item Value Reference Range Interpretation Comments Vanco Tr (test code = Vanco Tr) 22.3 [facility] McuewobVXKKZNGBLE9647-23-64 06:43:00 Test Item Value Reference Range Interpretation Comments Vanco Tr TND (test code = Vanco Tr TND) * [facility] FlkmbstUWJABOYDJG0711-50-80 06:43:00 Test Item Value Reference Range Interpretation Comments Vanco Tr (test code = Vanco Tr) 22.3 [facility] WiwvdysCKHHGWNJFA4519-70-48 06:43:00 Test Item Value Reference Range Interpretation Comments Vanco Tr TND (test code = Vanco Tr TND) * [facility] HkmcdeoPOTHPPAEPP3016-42-99 06:43:00 Test Item Value Reference Range Interpretation Comments Vanco Tr (test code = Vanco Tr) 22.3 [facility]annCHE[facility] JJNRM2679-37-57 11:45:00 Test Item Value Reference Range Interpretation Comments Magnesium Lvl (test code = Magnesium 2.3 1.8-2.4 Lvl) [facility]annCHEM IIVFX2993-57-02 11:45:00 Test Item Value Reference Range Interpretation Comments Phosphorus (test code = Phosphorus) 3.5 2.5-4.5 [facility] CenterBlkfffiEPMMLWBLFP3729-26-82 11:45:00 Test Item Value Reference Range Interpretation Comments PT (test code = PT) 14.0 s 12.0-14.7 [facility] CenterQncqhayZXHNLZJLII6604-63-78 11:45:00 Test Item Value Reference Range Interpretation Comments PTT (test code = PTT) 37.6 s 22.9-35.8 [facility] CenterBugdfgeNIBBIWWVZL6940-78-31 11:45:00 Test Item Value Reference Range Interpretation Comments INR (test code = INR) 1.08 1 0.85-1.17 [facility]xemlvuFQLOZVEGOO1043-44-99 11:45:00 Test Item Value Reference Range Interpretation Comments C-REACTIVE PROTEIN (test code = 13.1 C-REACTIVE PROTEIN) [facility] SouthXhsoprhCFLVYIFIIS2537-71-56 11:45:00 Test Item Value Reference Range Interpretation Comments Prealbumin (test code = Prealbumin) 25.2 18.0-45.0 [facility]2018-05-04 11:45:00 Test Item Value Reference Range Interpretation Comments Magnesium Lvl (test code = Magnesium 2.3 1.8-2.4 Lvl) [facility]2018-05-04 11:45:00 Test Item Value Reference Range Interpretation Comments Phosphorus (test code = Phosphorus) 3.5 2.5-4.5 [facility] CenterYugitadMVKWDMBCQL7890-47-66 11:45:00 Test Item Value Reference Range Interpretation Comments PT (test code = PT) 14.0 s 12.0-14.7 [facility] CenterRzmspwkKCRWCAAQNE6310-24-24 11:45:00 Test Item Value Reference Range Interpretation Comments PTT (test code = PTT) 37.6 s 22.9-35.8 [facility] CenterUtueufzBPXMNGEYNH1330-39-76 11:45:00 Test Item Value Reference Range Interpretation Comments INR (test code = INR) 1.08 1 0.85-1.17 [facility] SouthWtqxnldRKDRVUXVRU0289-71-64 11:45:00 Test Item Value Reference Range Interpretation Comments C-REACTIVE PROTEIN (test code = 13.1 C-REACTIVE PROTEIN) [facility] SouthVvvuoamSMQMCABBQZ6743-15-78 11:45:00 Test Item Value Reference Range Interpretation Comments Prealbumin (test code = Prealbumin) 25.2 18.0-45.0 [facility]2018-05-04 11:45:00 Test Item Value Reference Range Interpretation Comments Magnesium Lvl (test code = Magnesium 2.3 1.8-2.4 Lvl) [facility]2018-05-04 11:45:00 Test Item Value Reference Range Interpretation Comments Phosphorus (test code = Phosphorus) 3.5 2.5-4.5 [place] [address]-05-04 11:45:00 Test Item Value Reference Range Interpretation Comments PT (test code = PT) 14.0 s 12.0-14.7 [facility] CenterCjbrylgBRNLIKKADS8381-03-47 11:45:00 Test Item Value Reference Range Interpretation Comments PTT (test code = PTT) 37.6 s 22.9-35.8 [facility] CenterNhpyomyWLTHOLZFGK8224-01-48 11:45:00 Test Item Value Reference Range Interpretation Comments INR (test code = INR) 1.08 1 0.85-1.17 [facility] SouthRvtyzasQCPZHCROIR9318-74-42 11:45:00 Test Item Value Reference Range Interpretation Comments C-REACTIVE PROTEIN (test code = 13.1 C-REACTIVE PROTEIN) [facility] SouthGtcxhlkCAYILDZLHK8180-92-58 11:45:00 Test Item Value Reference Range Interpretation Comments Prealbumin (test code = Prealbumin) 25.2 18.0-45.0 [facility]2018-05-04 11:45:00 Test Item Value Reference Range Interpretation Comments Magnesium Lvl (test code = Magnesium 2.3 1.8-2.4 Lvl) [facility]2018-05-04 11:45:00 Test Item Value Reference Range Interpretation Comments Phosphorus (test code = Phosphorus) 3.5 2.5-4.5 [facility] CenterFfmkvzjPBVDYNDXAQ2523-04-17 11:45:00 Test Item Value Reference Range Interpretation Comments PT (test code = PT) 14.0 s 12.0-14.7 [facility] CenterIeaxkumRVWZUNADUG2670-14-48 11:45:00 Test Item Value Reference Range Interpretation Comments PTT (test code = PTT) 37.6 s 22.9-35.8 [facility] CenterPtbgzyaIPOQAUHRST3310-10-35 11:45:00 Test Item Value Reference Range Interpretation Comments INR (test code = INR) 1.08 1 0.85-1.17 [facility] SouthHzqjvkxFNSJPCDWFA5165-76-79 11:45:00 Test Item Value Reference Range Interpretation Comments C-REACTIVE PROTEIN (test code = 13.1 C-REACTIVE PROTEIN) [facility] SouthUjzzdwdQFUDSZQZMT3782-22-31 11:45:00 Test Item Value Reference Range Interpretation Comments Prealbumin (test code = Prealbumin) 25.2 18.0-45.0 [facility]2018-05-04 03:06:00 Test Item Value Reference Range Interpretation Comments Lactic Acid Lvl (test code = Lactic 0.9 0.5-2.2 Acid Lvl) [facility] CenterAlksqkiGGMJUPYYLV7319-76-14 03:06:00 Test Item Value Reference Range Interpretation Comments Sed Rate (test code = 5 See_Comment [Auto mated message] The Sed Rate) system which ge nerated this result transmit lester reference range : <=15. The reference range was not used to interpr et this result as dany l/abnormal. [facility] SouthEwttsaoVQUSYPELLS6839-86-12 03:06:00 Test Item Value Reference Range Interpretation Comments C-REACTIVE PROTEIN (test code = 15.8 C-REACTIVE PROTEIN) [facility]2018-05-04 03:06:00 Test Item Value Reference Range Interpretation Comments Lactic Acid Lvl (test code = Lactic 0.9 0.5-2.2 Acid Lvl) [facility] CenterWthdsrbVKMCWRSMVQ8622-58-58 03:06:00 Test Item Value Reference Range Interpretation Comments Sed Rate (test code = 5 See_Comment [Auto mated message] The Sed Rate) system which ge nerated this result transmit lester reference range : <=15. The reference range was not used to interpr et this result as dany l/abnormal. [facility] SouthMzpymclMCNZPSVYSK0146-71-05 03:06:00 Test Item Value Reference Range Interpretation Comments C-REACTIVE PROTEIN (test code = 15.8 C-REACTIVE PROTEIN) [facility]2018-05-04 03:06:00 Test Item Value Reference Range Interpretation Comments Lactic Acid Lvl (test code = Lactic 0.9 0.5-2.2 Acid Lvl) [facility] CenterWtkbqfaVEIZHGDYBZ8876-14-56 03:06:00 Test Item Value Reference Range Interpretation Comments Sed Rate (test code = 5 See_Comment [Auto mated message] The Sed Rate) system which ge nerated this result transmit lester reference range : <=15. The reference range was not used to interpr et this result as dany l/abnormal. [facility] SouthPbtewpcOABCNXZAQF7206-88-63 03:06:00 Test Item Value Reference Range Interpretation Comments C-REACTIVE PROTEIN (test code = 15.8 C-REACTIVE PROTEIN) [facility]2018-05-04 03:06:00 Test Item Value Reference Range Interpretation Comments Lactic Acid Lvl (test code = Lactic 0.9 0.5-2.2 Acid Lvl) [facility] CenterOrjlubtBLOQBZMSYX0546-65-97 03:06:00 Test Item Value Reference Range Interpretation Comments Sed Rate (test code = 5 See_Comment [Auto mated message] The Sed Rate) system which ge nerated this result transmit lester reference range : <=15. The reference range was not used to interpr et this result as dany l/abnormal. [facility]FevlqskUKSXXDTCGY0333-08-61 03:06:00 Test Item Value Reference Range Interpretation Comments C-REACTIVE PROTEIN (test code = 15.8 C-REACTIVE PROTEIN) [facility] CenterTofdcpmLXTXUTZOQJ2589-39-31 00:44:00 Test Item Value Reference Range Interpretation Comments PT (test code = PT) 13.0 s 12.0-14.7 [facility] CenterWndvzqdDYGGGQMGKO4458-58-95 00:44:00 Test Item Value Reference Range Interpretation Comments INR (test code = INR) 0.98 1 0.85-1.17 [facility] CenterGdfzlhbMHPVYKKIOJ3457-36-21 00:44:00 Test Item Value Reference Range Interpretation Comments PTT (test code = PTT) 33.2 s 22.9-35.8 [facility] CenterBwuiejiHCMACSHPRG8347-78-10 00:44:00 Test Item Value Reference Range Interpretation Comments PT (test code = PT) 13.0 s 12.0-14.7 [facility] CenterIkkbpdzWCHEDSUSJZ0762-33-45 00:44:00 Test Item Value Reference Range Interpretation Comments INR (test code = INR) 0.98 1 0.85-1.17 [facility] CenterUipgtljZSTSTCRHOC2602-04-41 00:44:00 Test Item Value Reference Range Interpretation Comments PTT (test code = PTT) 33.2 s 22.9-35.8 [facility] CenterKurydyaXJXNTLQBQM6974-48-96 00:44:00 Test Item Value Reference Range Interpretation Comments PT (test code = PT) 13.0 s 12.0-14.7 [facility] CenterClbhffzFESRUQGLVC7421-08-49 00:44:00 Test Item Value Reference Range Interpretation Comments INR (test code = INR) 0.98 1 0.85-1.17 [facility] CenterJgrcljdJEHAITGTIQ0155-30-57 00:44:00 Test Item Value Reference Range Interpretation Comments PTT (test code = PTT) 33.2 s 22.9-35.8 [facility] CenterYfdhbqePVYHOUZJVQ5217-10-48 00:44:00 Test Item Value Reference Range Interpretation Comments PT (test code = PT) 13.0 s 12.0-14.7 [facility] [id number] 00:44:00 Test Item Value Reference Range Interpretation Comments INR (test code = INR) 0.98 1 0.85-1.17 [id number] 00:44:00 Test Item Value Reference Range Interpretation Comments PTT (test code = PTT) 33.2 s 22.9-35.8 [facility] [id number] 23:51:00 Test Item Value Reference Range Interpretation Comments Antibody Scrn (test Negative (11/14/17 6:51 code = Antibody Scrn) PM) [facility] [id number] 23:51:00 Test Item Value Reference Range Interpretation Comments ABO/Rh (test code = ABO/Rh) AB POS [facility] [id number] 23:51:00 Test Item Value Reference Range Interpretation Comments Antibody Scrn (test Negative (11/14/17 6:51 code = Antibody Scrn) PM) [facility] [id number] 23:51:00 Test Item Value Reference Range Interpretation Comments ABO/Rh (test code = ABO/Rh) AB POS [facility] [id number] 23:51:00 Test Item Value Reference Range Interpretation Comments Antibody Scrn (test Negative (11/14/17 6:51 code = Antibody Scrn) PM) [facility] [id number] 23:51:00 Test Item Value Reference Range Interpretation Comments ABO/Rh (test code = ABO/Rh) AB POS [facility] [id number] 23:51:00 Test Item Value Reference Range Interpretation Comments Antibody Scrn (test Negative (11/14/17 6:51 code = Antibody Scrn) PM) [facility] [id number] 23:51:00 Test Item Value Reference Range Interpretation Comments ABO/Rh (test code = ABO/Rh) AB POS [facility] AND [id number] 23:35:00 Test Item Value Reference Range Interpretation Comments UA Urobilinogen (test code = UA 0.2 0.1-1.0 Urobilinogen) [facility] AND [id number] 23:35:00 Test Item Value Reference Range Interpretation Comments UA Nitrite (test code Negative (11/14/17 6:35 = UA Nitrite) PM) [facility] AND [id number] 23:35:00 Test Item Value Reference Range Interpretation Comments UA Glucose (test code Negative (11/14/17 6:35 = UA Glucose) PM) [facility] AND [id number] 23:35:00 Test Item Value Reference Range Interpretation Comments UA Ketones (test code Negative *NA*(11/14/17 = UA Ketones) 6:35 PM) [facility] AND [id number] 23:35:00 Test Item Value Reference Range Interpretation Comments UA Bili (test code = Negative *NA*(11/14/17 UA Bili) 6:35 PM) [facility] AND [id number] 23:35:00 Test Item Value Reference Range Interpretation Comments UA Blood (test code = Trace *ABN*(11/14/17 UA Blood) 6:35 PM) [facility] AND [id number] 23:35:00 Test Item Value Reference Range Interpretation Comments UA Leuk Est (test code Small *ABN*(11/14/17 6:35 = UA Leuk Est) PM) [facility] AND [id number] 23:35:00 Test Item Value Reference Range Interpretation Comments UA Spec Grav (test code = UA Spec 1.020 1 Grav) [facility] AND [id number] 23:35:00 Test Item Value Reference Range Interpretation Comments UA pH (test code = UA pH) 6.0 1 5.0-8.0 [facility] AND [id number] 23:35:00 Test Item Value Reference Range Interpretation Comments UA Color (test code = Yellow *NA*(11/14/17 6:35 UA Color) PM) [facility] AND [id number] 23:35:00 Test Item Value Reference Range Interpretation Comments UA Protein (test code = Trace *ABN*(11/14/17 UA Protein) 6:35 PM) [facility] AND [id number] 23:35:00 Test Item Value Reference Range Interpretation Comments UA Turbidity (test code Slight Cloudy (11/14/17 = UA Turbidity) 6:35 PM) [facility] AND [id number] 23:35:00 Test Item Value Reference Range Interpretation Comments UA Hyal Cast 0-2 (11/14/17 6:35 See_Comment [Automated message] (test code = UA PM) The system w [facility] Hyal Cast) generated this result transmitted ref erence range: <=2. The reference range was not used to int erpret this result as normal/abnormal . [facility] AND [id number] 23:35:00 Test Item Value Reference Range Interpretation Comments UA Bacteria (test code = UA Occasional /HPF Bacteria) [facility] AND [id number] 23:35:00 Test Item Value Reference Range Interpretation Comments UA RBC (test code 11-20 /HPF See_Comment [Automate d message] The = UA RBC) system which ge nerated this result tra nsmitted reference range : <=2. The reference range was not used to interpr et this result as normal/abnormal . [facility] AND [id number] 23:35:00 Test Item Value Reference Range Interpretation Comments UA Sq Epi (test code = UA Sq Occasional /LPF Epi) [facility] AND [id number] 23:35:00 Test Item Value Reference Range Interpretation Comments UA WBC (test code = UA WBC) 51-100 /HPF [facility] AND [id number] 23:35:00 Test Item Value Reference Range Interpretation Comments UA Urobilinogen (test code = UA 0.2 0.1-1.0 Urobilinogen) [facility] AND [id number] 23:35:00 Test Item Value Reference Range Interpretation Comments UA Nitrite (test code Negative (11/14/17 6:35 = UA Nitrite) PM) [facility] AND [id number] 23:35:00 Test Item Value Reference Range Interpretation Comments UA Glucose (test code Negative (11/14/17 6:35 = UA Glucose) PM) [facility] AND [id number] 23:35:00 Test Item Value Reference Range Interpretation Comments UA Ketones (test code Negative *NA*(11/14/17 = UA Ketones) 6:35 PM) [facility] AND [id number] 23:35:00 Test Item Value Reference Range Interpretation Comments UA Bili (test code = Negative *NA*(11/14/17 UA Bili) 6:35 PM) [facility] AND [id number] 23:35:00 Test Item Value Reference Range Interpretation Comments UA Blood (test code = Trace *ABN*(11/14/17 UA Blood) 6:35 PM) [facility] AND [id number] 23:35:00 Test Item Value Reference Range Interpretation Comments UA Leuk Est (test code Small *ABN*(11/14/17 6:35 = UA Leuk Est) PM) [facility] AND [id number] 23:35:00 Test Item Value Reference Range Interpretation Comments UA Spec Grav (test code = UA Spec 1.020 1 Grav) [facility] AND [id number] 23:35:00 Test Item Value Reference Range Interpretation Comments UA pH (test code = UA pH) 6.0 1 5.0-8.0 [facility] AND [id number] 23:35:00 Test Item Value Reference Range Interpretation Comments UA Color (test code = Yellow *NA*(11/14/17 6:35 UA Color) PM) [facility] AND [id number] 23:35:00 Test Item Value Reference Range Interpretation Comments UA Protein (test code = Trace *ABN*(11/14/17 UA Protein) 6:35 PM) [facility] AND [id number] 23:35:00 Test Item Value Reference Range Interpretation Comments UA Turbidity (test code Slight Cloudy (11/14/17 = UA Turbidity) 6:35 PM) [facility] AND [id number] 23:35:00 Test Item Value Reference Range Interpretation Comments UA Hyal Cast 0-2 (11/14/17 6:35 See_Comment [Automated message] (test code = UA PM) The system w [facility] Hyal Cast) generated this result transmitted ref erence range: <=2. The reference range was not used to int erpret this result as normal/abnormal . [facility] AND [id number] 23:35:00 Test Item Value Reference Range Interpretation Comments UA Bacteria (test code = UA Occasional /HPF Bacteria) [facility] AND [id number] 23:35:00 Test Item Value Reference Range Interpretation Comments UA RBC (test code 11-20 /HPF See_Comment [Automate d message] The = UA RBC) system which ge nerated this result tra nsmitted reference range : <=2. The reference range was not used to interpr et this result as normal/abnormal . [facility] AND [id number] 23:35:00 Test Item Value Reference Range Interpretation Comments UA Sq Epi (test code = UA Sq Occasional /LPF Epi) [facility] AND [id number] 23:35:00 Test Item Value Reference Range Interpretation Comments UA WBC (test code = UA WBC) 51-100 /HPF [facility] AND [id number] 23:35:00 Test Item Value Reference Range Interpretation Comments UA Urobilinogen (test code = UA 0.2 0.1-1.0 Urobilinogen) [facility] AND [id number] 23:35:00 Test Item Value Reference Range Interpretation Comments UA Nitrite (test code Negative (11/14/17 6:35 = UA Nitrite) PM) [facility] AND [id number] 23:35:00 Test Item Value Reference Range Interpretation Comments UA Glucose (test code Negative (11/14/17 6:35 = UA Glucose) PM) [facility] AND [id number] 23:35:00 Test Item Value Reference Range Interpretation Comments UA Ketones (test code Negative *NA*(11/14/17 = UA Ketones) 6:35 PM) [facility] AND [id number] 23:35:00 Test Item Value Reference Range Interpretation Comments UA Bili (test code = Negative *NA*(11/14/17 UA Bili) 6:35 PM) [facility] AND [id number] 23:35:00 Test Item Value Reference Range Interpretation Comments UA Blood (test code = Trace *ABN*(11/14/17 UA Blood) 6:35 PM) [facility] AND [id number] 23:35:00 Test Item Value Reference Range Interpretation Comments UA Leuk Est (test code Small *ABN*(11/14/17 6:35 = UA Leuk Est) PM) [facility] AND [id number] 23:35:00 Test Item Value Reference Range Interpretation Comments UA Spec Grav (test code = UA Spec 1.020 1 Grav) [facility] AND [id number] 23:35:00 Test Item Value Reference Range Interpretation Comments UA pH (test code = UA pH) 6.0 1 5.0-8.0 [facility] [id number] 23:35:00 Test Item Value Reference Range Interpretation Comments UA Color (test code = Yellow *NA*(11/14/17 6:35 UA Color) PM) [facility] AND [id number] 23:35:00 Test Item Value Reference Range Interpretation Comments UA Protein (test code = Trace *ABN*(11/14/17 UA Protein) 6:35 PM) [facility] AND [id number] 23:35:00 Test Item Value Reference Range Interpretation Comments UA Turbidity (test code Slight Cloudy (11/14/17 = UA Turbidity) 6:35 PM) [facility] AND [id number] 23:35:00 Test Item Value Reference Range Interpretation Comments UA Hyal Cast 0-2 (11/14/17 6:35 See_Comment [Automated message] (test code = UA PM) The system w [facility] Hyal Cast) generated this result transmitted ref erence range: <=2. The reference range was not used to int erpret this result as normal/abnormal . [facility] AND [id number] 23:35:00 Test Item Value Reference Range Interpretation Comments UA Bacteria (test code = UA Occasional /HPF Bacteria) [facility] AND [id number] 23:35:00 Test Item Value Reference Range Interpretation Comments UA RBC (test code 11-20 /HPF See_Comment [Automate d message] The = UA RBC) system which ge nerated this result tra nsmitted reference range : <=2. The reference range was not used to interpr et this result as normal/abnormal . [facility] [id number] 23:35:00 Test Item Value Reference Range Interpretation Comments UA Sq Epi (test code = UA Sq Occasional /LPF Epi) [facility] AND [id number] 23:35:00 Test Item Value Reference Range Interpretation Comments UA WBC (test code = UA WBC) 51-100 /HPF [facility] AND [id number] 23:35:00 Test Item Value Reference Range Interpretation Comments UA Urobilinogen (test code = UA 0.2 0.1-1.0 Urobilinogen) [facility] AND [id number] 23:35:00 Test Item Value Reference Range Interpretation Comments UA Nitrite (test code Negative (11/14/17 6:35 = UA Nitrite) PM) [facility] AND [id number] 23:35:00 Test Item Value Reference Range Interpretation Comments UA Glucose (test code Negative (11/14/17 6:35 = UA Glucose) PM) [facility] AND [id number] 23:35:00 Test Item Value Reference Range Interpretation Comments UA Ketones (test code Negative *NA*(11/14/17 = UA Ketones) 6:35 PM) [facility] AND [id number] 23:35:00 Test Item Value Reference Range Interpretation Comments UA Bili (test code = Negative *NA*(11/14/17 UA Bili) 6:35 PM) [facility] AND [id number] 23:35:00 Test Item Value Reference Range Interpretation Comments UA Blood (test code = Trace *ABN*(11/14/17 UA Blood) 6:35 PM) [facility] AND [id number] 23:35:00 Test Item Value Reference Range Interpretation Comments UA Leuk Est (test code Small *ABN*(11/14/17 6:35 = UA Leuk Est) PM) [facility] AND [id number] 23:35:00 Test Item Value Reference Range Interpretation Comments UA Spec Grav (test code = UA Spec 1.020 1 Grav) [facility] AND [id number] 23:35:00 Test Item Value Reference Range Interpretation Comments UA pH (test code = UA pH) 6.0 1 5.0-8.0 [facility] AND [id number] 23:35:00 Test Item Value Reference Range Interpretation Comments UA Color (test code = Yellow *NA*(11/14/17 6:35 UA Color) PM) [facility] AND [id number] 23:35:00 Test Item Value Reference Range Interpretation Comments UA Protein (test code = Trace *ABN*(11/14/17 UA Protein) 6:35 PM) [facility] AND [id number] 23:35:00 Test Item Value Reference Range Interpretation Comments UA Turbidity (test code Slight Cloudy (11/14/17 = UA Turbidity) 6:35 PM) [facility] AND [id number] 23:35:00 Test Item Value Reference Range Interpretation Comments UA Hyal Cast 0-2 (11/14/17 6:35 See_Comment [Automated message] (test code = UA PM) The system w [facility] Hyal Cast) generated this result transmitted ref erence range: <=2. The reference range was not used to int erpret this result as normal/abnormal . [facility] AND [id number] 23:35:00 Test Item Value Reference Range Interpretation Comments UA Bacteria (test code = UA Occasional /HPF Bacteria) [facility] AND [id number] 23:35:00 Test Item Value Reference Range Interpretation Comments UA RBC (test code 11-20 /HPF See_Comment [Automate d message] The = UA RBC) system which ge nerated this result tra nsmitted reference range : <=2. The reference range was not used to interpr et this result as normal/abnormal . [facility] AND [id number] 23:35:00 Test Item Value Reference Range Interpretation Comments UA Sq Epi (test code = UA Sq Occasional /LPF Epi) [facility] AND [id number] 23:35:00 Test Item Value Reference Range Interpretation Comments UA WBC (test code = UA WBC) 51-100 /HPF [facility] [id number] 23:20:00 Test Item Value Reference Range Interpretation Comments Basophils # (test code 0.1 See_Comment [Aut omated message] The = Basophils #) system which generated this result tra nsmitted reference range : <=0.2. The reference r boubacar was not used to int erpret this result as normal/abnormal . [facility] [id number] 23:20:00 Test Item Value Reference Range Interpretation Comments Polychrom (test code = Polychrom) Slight [facility] [id number] 23:20:00 Test Item Value Reference Range Interpretation Comments Plt Morph (test code = Normal (18 6:20 PM) Plt Morph) [facility] [id number] 23:20:00 Test Item Value Reference Range Interpretation Comments Basophils # (test code 0.1 See_Comment [Aut omated message] The = Basophils #) system which generated this result tra nsmitted reference range : <=0.2. The reference r boubacar was not used to int erpret this result as normal/abnormal . [facility] [id number] 23:20:00 Test Item Value Reference Range Interpretation Comments Polychrom (test code = Polychrom) Slight [facility] [id number] 23:20:00 Test Item Value Reference Range Interpretation Comments Plt Morph (test code = Normal (11/14/17 6:20 PM) Plt Morph) [facility] [id number] 23:20:00 Test Item Value Reference Range Interpretation Comments Basophils # (test code 0.1 See_Comment [Aut omated message] The = Basophils #) system which generated this result tra nsmitted reference range : <=0.2. The reference r boubacar was not used to int erpret this result as normal/abnormal . [facility] [id number] 23:20:00 Test Item Value Reference Range Interpretation Comments Polychrom (test code = Polychrom) Slight [facility] [id number] 23:20:00 Test Item Value Reference Range Interpretation Comments Plt Morph (test code = Normal (11/14/17 6:20 PM) Plt Morph) [facility] [id number] 23:20:00 Test Item Value Reference Range Interpretation Comments Basophils # (test code 0.1 See_Comment [Aut omated message] The = Basophils #) system which generated this result tra nsmitted reference range : <=0.2. The reference r boubacar was not used to int erpret this result as normal/abnormal . [facility] [id number] 23:20:00 Test Item Value Reference Range Interpretation Comments Polychrom (test code = Polychrom) Slight [facility] [id number] 23:20:00 Test Item Value Reference Range Interpretation Comments Plt Morph (test code = Normal (5/3/18 6:20 PM) Plt Morph) [facility] [id number] 16:22:00 Test Item Value Reference Range Interpretation Comments CULTURE (BEAKER) (test No growth in 5 days code = 1095) BLOOD [id number] 16:22:00 Test Item Value Reference Range Interpretation [...] Normal 762) CBC W/PLT COUNT & AUTO [id number] 22:28:00 Test Item Value Reference Range Interpretation [...] 0.00-0.20 (test code = 417) 0.000.520.000.000.000.00BASIC METABOLIC [id number] 11:11:00 Test Item Value Reference Range Interpretation [...] NOT APPLICABLE FOR DIALYSIS PATIEN TS. URINE [id number] 09:56:00 Test Item Value Reference Range Interpretation Comments CULTURE (BEAKER) (test <10,000 col/mL skin code = 1095) marilee COMPREHENSIVE METABOLIC [id number] 08:49:00 Test Item Value Reference Range Interpretation [...] PATIEN TS. CBC W/PLT COUNT & AUTO [id number] 08:46:00 Test Item Value Reference Range Interpretation [...] 0.00-0.20 (test code = 417) 0.00URINALYSIS W/ [id number] 20:36:00 Test Item Value Reference Range Interpretation [...] SOURCE(BEAKER) (test code = 2795) BASIC METABOLIC [id number] 17:00:00 Test Item Value Reference Range Interpretation [...] Specimen slightly ictericCBC W/PLT COUNT & AUTO [id number] 12:18:00 Test Item Value Reference Range Interpretation [...]
[2022-08-06 13:25] LABS: Urine Blood 1+ (Negative); Urine Glucose 3+ (Negative); Urine Protein Trace (Negative); Urine Specific Gravity <=1.005 (1.005-1.030)
[2022-08-06 13:36] LABS: Urine Bacteria <20 /HPF (<20); Urine Mucus Slight /HPF (None Seen); Urine WBC Clump Occasional /HPF (None Seen)
[2022-08-06] MEDS ORDERED: HYDROMORPHONE HCL 0.5 MG/0.5 ML INJ ONE ×2 (14:08→19:57)
[2022-08-06 14:55] LABS: ALT/SGPT 30 U/L (16-61); Alkaline Phosphatase 168 U/L (45-117); BUN Blood Urea Nitrogen 35 mg/dL (7-18); Bicarbonate 19 mmol/L (21-32); Bilirubin Total 0.7 mg/dL (0.2-1.0); Glomerular Filtration Rate 32 ml/min (=/>90); Lipase 4394 U/L (73-393); Protein, Total 9.8 g/dL (6.4-8.2); Sodium Level 131 mmol/L (136-145)
[2022-08-06 14:56] LABS: AST/SGOT 8 U/L (15-37)
[2022-08-06 14:59] LABS: Glucose Level 1673 mg/dL (74-106)
[2022-08-06 15:47] LABS: Absolute Lymphocytes (CBC) 0.6 K/uL (0.7-4.9); Lymphocytes % 3.6 % (15.3-44.8); MCV 95.8 fL (80-100); MPV 9.9 fL (7.6-11.3); RBC Red Blood Cell Count 6.36 M/uL (4.33-5.43)
[2022-08-06 15:48] LABS: Hematocrit 54.5 % (39.6-49.0)
[2022-08-06] MEDS ORDERED: HYDROMORPHONE HCL 1 MG/ML INJ ONE (15:56)
[2022-08-06] MEDS ORDERED: INSULIN -REGULAR HUMAN 100 UNIT in NA CHLORIDE 0.9% 100 ML IV SCH (16:15)
--- NOTE | 2022-08-06 16:36 | RAD REPORT ---
EXAM DESCRIPTION: RAD - Chest Single View - 08/06/2022 4:23 pm CLINICAL HISTORY: post central line placement COMPARISON: Portable chest 06/27/2022 TECHNIQUE: AP portable chest image was obtained 08/06/2022 4:23 pm . FINDINGS: Left jugular central line has been placed. Tip is at the SVC atrial junction. There is no pneumothorax. Lung parenchyma appears slightly better aerated than on the earlier examination. No new or progressiv e lung parenchymal process. Heart and vasculature are normal. IMPRESSION: Left jugular central line placement with the tip at the SVC atrial junction. No pneumothorax.
--- NOTE | 2022-08-06 16:37 | EDPHYS ---
Physician Documentation [facility] Name: Roland Feldman Jr Age: 37 yrs Sex: Male : 1985 Arrival Date: 08/06/2022 Time: 12:34 Bed 5 Private MD: ED Physician Mitchell Palumbo HPI: 08/06 14:18 This 37 yrs old Black Male presents to ER via EMS with complaints of Abdominal Pain, jr8 Back Pain. 14:18 Severity of pain: At its worst the pain was moderate in the emergency department the jr8 pain is unchanged. The patient has experienced similar episodes in the past, a few times. The patient has not recently seen a physician. This is a 37-year-old male patient that presented to the emergency room via EMS after calling out for lower abdominal discomfort and back pain along with suspicions for diabetic ketoacidosis. Patient stated that he has been nauseated and dry. Sugars have been running high at home. Complains of shortness of breath. Stated that he thinks he is having trouble with his bladder again. Has a suprapubic catheter with frequent urinary problems including chronic urinary tract infections.. Historical: - Allergies: 12:35 Amoxicillin; ld1 12:35 Bactrim; ld1 12:35 Ciprofloxacin; ld1 12:35 CLAVULANIC ACID; ld1 12:35 Demerol; ld1 12:35 Doxycycline; ld1 12:35 Levofloxacin; ld1 12:35 Morphine; ld1 12:35 PENICILLINS; ld1 12:35 Toradol; ld1 12:35 TRIMETHOPRIM; ld1 12:35 Vancomycin; ld1 12:35 Zofran; ld1 - PMHx: 12:35 Asthma; Cerebral Palsy; cluster headaches; decubitus ulcers on feet; diabetes mellitus; ld1 GERD; Hydrocephalus; Hypertension; spina bifida; - PSHx: 12:35 Cholecystectomy; Shunt Revision; ld1 - Immunization history:: Adult Immunizations up to date, Client reports receiving the 2nd dose of the Covid vaccine. - Social history:: Smoking status: Patient denies any tobacco usage or history of. Patient/guardian denies using alcohol. ROS: 14:18 Eyes: Negative for injury, pain, redness, and discharge, ENT: Negative for injury, jr8 pain, and discharge, Neck: Negative for injury, pain, and swelling, Cardiovascular: Negative for chest pain, palpitations, and edema, Back: Negative for injury and pain, MS/Extremity: Negative for injury and deformity, Skin: Negative for injury, rash, and discoloration, Neuro: Negative for headache, weakness, numbness, tingling, and seizure. 14:18 Respiratory: Positive for shortness of breath. 14:18 Abdomen/GI: Positive for abdominal pain, nausea. 14:18 Endocrine: Positive for polydipsia. Exam: 14:18 Constitutional: This is a well developed, well nourished patient who is awake, alert, jr8 and in no acute distress. 14:18 Neck: Trachea midline, no thyromegaly or masses palpated, and no cervical lymphadenopathy. Supple, full range of motion without nuchal rigidity, or vertebral point tenderness. No Meningismus. 14:18 Skin: Warm, dry with normal turgor. Normal color with no rashes, no lesions, and no evidence of cellulitis. MS/ Extremity: Pulses equal, no cyanosis. Neurovascular intact. Full, normal range of motion. Neuro: Awake and alert, GCS 15, oriented to person, place, time, and situation. Motor strength 5/5 in all extremities. Sensory grossly intact. 14:18 ENT: Mouth: Lips: dry, Oral mucosa: dry. 14:18 Cardiovascular: Rate: tachycardic, Rhythm: regular, Pulses: Pulses are 2+ in right radial artery and left radial artery. Heart sounds: normal, normal S1and S2, no S3 or S4, no murmur, no rub, no gallop, Edema: is not appreciated. 14:18 Abdomen/GI: Inspection: obese suprapubic catheter in place. No discharge around catheter , Bowel sounds: active, all quadrants, Palpation: soft, in all quadrants, mild abdominal tenderness, in the suprapubic area, right lower quadrant and left lower quadrant, mass, is not appreciated, rebound tenderness, is not appreciated, voluntary guarding, is not appreciated, involuntary guarding, is not appreciated, no appreciated organomegaly, Indicators: McBurney's point is not tender, Gutierrez's sign is negative, Rovsing's sign is negative. Vital Signs: 12:42 BP 133 / 113; Pulse 114; Resp 20; Temp 97.9; Pulse Ox 95% on 1 lpm NC; Weight 81.65 kg; mb9 Height 4 ft. 11 in. (149.86 cm); Pain 10/10; 13:30 BP 102 / 67; Pulse 118; Resp 16; Pulse Ox 93% on 2 lpm NC; ld1 14:09 BP 92 / 75; Pulse 117; Resp 16; Pulse Ox 94% on 2 lpm NC; Pain 8/10; ld1 14:22 BP 94 / 65; Pulse 121; Resp 18; Pulse Ox 90% on 2 lpm NC; ld1 15:12 BP 92 / 79; Pulse 116; Resp 18; Pulse Ox 92% on 3 lpm NC; ld1 15:20 BP 94 / 66; Pulse 116; Resp 18; Pulse Ox 97% on 5 lpm NC; ld1 15:37 BP 85 / 72; Pulse 114; Resp 18; Pulse Ox 98% on 5 lpm NC; ld1 16:25 BP 83 / 60; Pulse 112; Resp 18; Pulse Ox 92% on 5 lpm NC; ld1 16:32 Weight 127.01 kg; ld1 16:40 BP 103 / 71; Pulse 116; Resp 18; Pulse Ox 94% on 3 lpm NC; ld1 17:00 BP 87 / 71; Pulse 113; Resp 18; Pulse Ox 98% on 3 lpm NC; ld1 16:32 Body Mass Index 56.55 (127.01 kg, 149.86 cm) ld1 Procedures: 17:29 Central Line: the site was prepped with in sterile fashion, a triple lumen catheter was jr8 inserted, in the left internal jugular vein, in 1 attempts. placement was verified, by CXR, by blood return, the site was dressed with 4X4s, Tegaderm, foam tape, using sterile technique, the patient tolerated the procedure, well. MDM: 12:34 Patient medically screened. jr8 16:33 Data reviewed: vital signs, nurses notes, lab test result(s), radiologic studies, plain jr8 films. Consideration of Admission/Observation Patient was admitted/placed on observation. Escalation of care including admission/observation considered. Management of patient was discussed with the following: Hospitalist: Dr. Varela who is patients PCP consulted and will see patient. Admitted to ICU for continued care . I considered the following discharge prescriptions or medication management in the emergency department Medications were administered in the Emergency Department. See MAR. Independent interpretation of the following test(s) in the Emergency Department X-Ray: My interpretation is No acute cardiopulmonary abnormalities seen. Central line at tip of RA. Care significantly affected by the following chronic conditions: Diabetes, Obesity, Chronic Kidney Disease. Counseling: I had a detailed discussion with the patient and/or guardian regarding: the historical points, exam findings, and any diagnostic results supporting the discharge/admit diagnosis, lab results, radiology results, the need for further work-up and treatment in the hospital. Response to treatment: the patient's symptoms have mildly improved after treatment. 08/06 13:03 Order name: CBC with Diff; Complete Time: 15:56 [facility] 08/06 13:03 Order name: CMP; Complete Time: 15:14 [facility] 08/06 13:03 Order name: Lipase; Complete Time: 15:14 [facility] 08/06 13:03 Order name: Urine Microscopic Only; Complete Time: 14:02 [facility] 08/06 13:03 Order name: Ketone, Serum; Complete Time: 15:14 [facility] 08/06 13:25 Order name: Urine Dipstick-Ancillary; Complete Time: 14:02 [facility] 08/06 13:44 Order name: Glucose, Ancillary Testing; Complete Time: 14:02 [facility] 08/06 13:46 Order name: Urine Culture [facility] 08/06 15:57 Order name: Blood Culture Adult (2) [facility] 08/06 15:57 Order name: Lactate w/ 2H reflex if indic.; Complete Time: 17:10 [facility] 08/06 16:28 Order name: Urine Culture; Complete Time: 16:37 [facility] 08/06 16:28 Order name: Urine Microscopic Only; Complete Time: 16:37 [facility] 08/06 16:33 Order name: SARS RAPID; Complete Time: 17:25 ld1 08/06 16:45 Order name: Glucose; Complete Time: 17:29 mb9 08/06 16:57 Order name: Glucose, Ancillary Testing; Complete Time: 17:10 [facility] 08/06 17:10 Order name: Hemoglobin A1c; Complete Time: 05:35 [facility] 08/06 17:10 Order name: Lipid Profile [facility] 08/06 17:10 Order name: Thyroid Stimulating Hormone [facility] 08/06 17:10 Order name: CBC with Automated Diff [facility] 08/06 17:10 Order name: CBC with Automated Diff; Complete Time: 05:35 [facility] 08/06 17:10 Order name: CBC with Automated Diff [facility] 08/06 17:10 Order name: CBC with Automated Diff [facility] 08/06 17:10 Order name: Comprehensive Metabolic Panel [facility] 08/06 17:10 Order name: Comprehensive Metabolic Panel ED[facility] 08/06 17:10 Order name: Comprehensive Metabolic Panel EDMS 08/06 17:10 Order name: Comprehensive Metabolic Panel EDMS 08/06 19:15 Order name: Glucose, Ancillary Testing; Complete Time: 05:35 [facility] 08/06 19:51 Order name: Glucose 4 08/06 19:53 Order name: Lactate Sepsis 2 HR Follow-up; Complete Time: 05:35 [facility]MS 08/06 20:35 Order name: Glucose, Ancillary Testing; Complete Time: 05:35 [facility] 08/06 20:57 Order name: Glucose Level; Complete Time: 05:35 [facility]MS 08/06 21:14 Order name: Glucose 4 08/06 21:27 Order name: Glucose, Ancillary Testing; Complete Time: 05:35 [facility]MS 08/06 21:45 Order name: Glucose Level; Complete Time: 05:35 [facility]MS 08/06 22:21 Order name: Glucose 4 08/06 22:33 Order name: Glucose, Ancillary Testing; Complete Time: 05:35 [facility] 08/06 22:53 Order name: Glucose Level; Complete Time: 05:35 [facility] 08/06 23:19 Order name: Glucose 4 08/06 23:30 Order name: Glucose, Ancillary Testing; Complete Time: 05:35 [facility] 08/07 00:04 Order name: Glucose Level; Complete Time: 05:35 EDMS 08/07 00:12 Order name: Glucose 4 08/07 00:23 Order name: Glucose, Ancillary Testing; Complete Time: 05:35 [facility]MS 08/07 00:50 Order name: Glucose Level; Complete Time: 05:35 EDMS 08/07 01:25 Order name: Glucose jb4 08/07 01:36 Order name: Glucose, Ancillary Testing; Complete Time: 05:35 [facility] 08/07 02:16 Order name: Glucose Level; Complete Time: 05:35 [facility] 08/07 02:42 Order name: Glucose, Ancillary Testing; Complete Time: 05:35 [facility] 08/07 02:45 Order name: Basic Metabolic Panel; Complete Time: 05:35 [facility] 08/07 03:24 Order name: Glucose 4 08/07 03:36 Order name: Glucose, Ancillary Testing; Complete Time: 05:35 [facility] 08/07 03:53 Order name: Lactate w/ 2H reflex if indic.; Complete Time: 05:35 [facility] 08/07 04:08 Order name: Glucose Level; Complete Time: 05:35 [facility] 08/07 04:19 Order name: Glucose 4 08/07 04:29 Order name: Glucose, Ancillary Testing; Complete Time: 05:35 [facility] 08/07 04:50 Order name: Glucose Level; Complete Time: 05:35 [facility] 08/07 05:20 Order name: Glucose, Ancillary Testing; Complete Time: 05:35 [facility]MS 08/07 05:47 Order name: Lipid Profile [facility] 08/07 06:21 Order name: Glucose, Ancillary Testing [facility] 08/07 07:29 Order name: Glucose, Ancillary Testing [facility] 08/07 09:01 Order name: Glucose, Ancillary Testing [facility] 08/07 09:01 Order name: Glucose, Ancillary Testing [facility] 08/07 09:21 Order name: Lactate Sepsis 2 HR Follow-up [facility] 08/06 13:03 Order name: IV Saline Lock; Complete Time: 14:04 [facility] 08/06 13:03 Order name: Labs collected and sent; Complete Time: 14:04 [facility] 08/06 13:03 Order name: Urine Dipstick-Ancillary (obtain specimen); Complete Time: 13:30 [facility] 08/06 13:03 Order name: Glucose Level; Complete Time: 13:30 [facility] 08/06 15:59 Order name: Chest Single View XRAY; Complete Time: 16:37 [facility] 08/06 17:10 Order name: CONS Physician Consult [facility] 08/06 17:10 Order name: Clear Liquid [facility] 08/06 18:54 Order name: Glucose Level; Complete Time: 23:41 ko1 08/07 10:25 Order name: Glucose, Ancillary Testing [facility] 08/07 11:23 Order name: Glucose, Ancillary Testing [facility] 08/07 11:50 Order name: Gram Stain--Aerobic Bottle [facility] 08/07 11:53 Order name: Gram Stain--Anaerobic Bottle [facility] 08/07 12:19 Order name: Glucose, Ancillary Testing [facility] 08/07 13:17 Order name: Glucose, Ancillary Testing [facility] 08/07 14:59 Order name: Glucose, Ancillary Testing [facility] 08/07 15:51 Order name: Glucose, Ancillary Testing [facility] 08/07 16:33 Order name: Basic Metabolic Panel [facility] 08/07 17:12 Order name: Glucose, Ancillary Testing [facility] 08/07 18:19 Order name: Glucose, Ancillary Testing [facility] 08/07 19:45 Order name: Glucose, Ancillary Testing [facility] 08/07 21:02 Order name: Gram Stain--Anaerobic Bottle EDMS Administered Medications: 14:04 Drug: NS 0.9% 1000 ml Route: IV; Rate: 1 bolus; Site: left antecubital; ld1 14:09 Drug: Dilaudid (HYDROmorphone) 0.5 mg Route: IVP; Site: left upper arm; ld1 17:23 Follow up: Response: No adverse reaction ld1 15:40 Drug: NS 0.9% 1000 ml Route: IV; Rate: 1 bolus; Site: left upper arm; ld1 17:23 Follow up: Response: No adverse reaction ld1 15:40 Drug: Dilaudid (HYDROmorphone) 1 mg Route: IVP; Site: left jugular; ld1 16:33 Follow up: Response: No adverse reaction ld1 17:23 Follow up: Response: No adverse reaction ld1 16:13 Not Given (Physician Discretion): Dilaudid (HYDROmorphone) 0.5 mg IVP once jr8 16:55 Drug: Cefepime 1 grams Route: IVPB; Rate: 200 ml/hr; Infused Over: 30 mins; Site: left ld1 upper arm; 17:23 Follow up: Response: No adverse reaction; IV Status: Completed infusion ld1 17:25 Drug: NS 0.9% 1000 ml Route: IV; Rate: 1000 ml; Site: Other; ap3 19:36 Not Given (charted in [employer] ): Insulin Drip - (Insulin Regular Human 100 units, NS jh5 0.9% 100 ml) IV at calculated rate continuous; Standard concentration 1unit/ml; Dose for DKA is 0.1 units/kg/hr Disposition: 19:05 Co-signature as Attending Physician, Mitchell GARCIA was immediately available on-site ms3 in the Emergency Department for consultation in the care of the patient. Disposition Summary: 08/06/22 16:36 Hospitalization Ordered Hospitalization Status: Inpatient Admission jr8 Provider: Eren Varela jr8 Condition: Fair jr8 Problem: new jr8 Symptoms: have improved jr8 Bed/Room Type: Standard [facility] Location: Intensive Care Unit(08/07/22 20:00) cg Room Assignment: 6-(08/07/22 20:00) cg Diagnosis - Diabetes mellitus due to underlying condition with ketoacidosis jr8 - Severe sepsis with septic shock jr8 Forms: - Medication Reconciliation Form jr8 - SBAR form jr8 Critical care time excluding procedures: 16:35 Critical care time: Bedside Care: 20 minutes, Consultation: 10 minutes. Total time: 30 jr8 minutes Signatures: Dispatcher [employer] EDBuddy Espana PA PA jr8 Kari Maguire, RN RN cg Sierra Avendano RN RN ap3 Mitchell Palumbo DO DO ms3 Hanh Echeverria RN RN ld1 Megan Watkins RN RN koMelissa Burkett PA-C PAJanki sb4 Shaylee Cruz RN jh5 Corrections: (The following items were deleted from the chart) 18:55 16:36 Intensive Care Unit jr8 cg 18:55 16:36 jr8 cg 08/07 20:00 08/06 18:55 [facility] ER HOLD cg cg 08/07 20:00 08/06 18:55 ERHOLD- cg cg
--- NOTE | 2022-08-06 16:37 | ER ---
Nurse's Notes [facility] Name: Roland Feldman Jr Age: 37 yrs Sex: Male : 1985 Arrival Date: 08/06/2022 Time: 12:34 Bed 5 Private MD: Diagnosis: Diabetes mellitus due to underlying condition with ketoacidosis;Severe sepsis with septic shock Presentation: 08/06 12:34 Chief complaint: EMS states: toned out to patient home from abdominal pain \\T\\ lower back ld1 pain. Coronavirus screen: At this time, the client does not indicate any symptoms associated with coronavirus-19. Ebola Screen: No symptoms or risks identified at this time. Risk Assessment: Do you want to hurt yourself or someone else? Patient reports no desire to harm self or others. Onset of symptoms was August 06, 2022 at 12:35. 12:34 Method Of Arrival: EMS: [facility] ld1 12:34 Acuity: YUKI 3 ld1 15:22 Acuity: YUKI 2 iw Triage Assessment: 12:35 General: Appears in no apparent distress. comfortable, Behavior is calm, cooperative, ld1 appropriate for age. Pain: Complains of pain in back and abdomen Pain does not radiate. Pain currently is 10 out of 10 on a pain scale. Quality of pain is described as throbbing. EENT: No signs and/or symptoms were reported regarding the EENT system. Neuro: Level of Consciousness is awake, alert, obeys commands, Oriented to person, place, time, situation. Cardiovascular: Capillary refill < 3 seconds Patient's skin is warm and dry. Respiratory: Airway is patent Respiratory effort is even, unlabored. GI: Abdomen is round non-distended, Reports lower abdominal pain, upper abdominal pain. : No signs and/or symptoms were reported regarding the genitourinary system. Derm: No signs and/or symptoms reported regarding the dermatologic system. Musculoskeletal: No signs and/or symptoms reported regarding the musculoskeletal system. Historical: - Allergies: 12:35 Amoxicillin; ld1 12:35 Bactrim; ld1 12:35 Ciprofloxacin; ld1 12:35 CLAVULANIC ACID; ld1 12:35 Demerol; ld1 12:35 Doxycycline; ld1 12:35 Levofloxacin; ld1 12:35 Morphine; ld1 12:35 PENICILLINS; ld1 12:35 Toradol; ld1 12:35 TRIMETHOPRIM; ld1 12:35 Vancomycin; ld1 12:35 Zofran; ld1 - PMHx: 12:35 Asthma; Cerebral Palsy; cluster headaches; decubitus ulcers on feet; diabetes mellitus; ld1 GERD; Hydrocephalus; Hypertension; spina bifida; - PSHx: 12:35 Cholecystectomy; Shunt Revision; ld1 - Immunization history:: Adult Immunizations up to date, Client reports receiving the 2nd dose of the Covid vaccine. - Social history:: Smoking status: Patient denies any tobacco usage or history of. Patient/guardian denies using alcohol. Screenin:36 [facility] ED Fall Risk Assessment (Adult) History of falling in the last 3 months, ld1 including since admission No falls in past 3 months (0 pts). Abuse screen: Denies threats or abuse. Denies injuries from another. Nutritional screening: No deficits noted. Tuberculosis screening: No symptoms or risk factors identified. Assessment: 12:36 Reassessment: See triage assessment. ld1 13:00 Reassessment: No changes from previously documented assessment. Pt C/O "All over" pain. ld1 Patient states symptoms have not improved. 13:00 Neuro: Level of Consciousness is awake, alert, obeys commands, Oriented to person, ld1 place, time, situation. Respiratory: Airway is patent Respiratory effort is even, unlabored. 13:45 Reassessment: ERP at bedside assisting nurses with IV access. ld1 15:30 Reassessment: ERP at bedside inserting central line. ld1 15:30 Reassessment: Pt continuously requesting pain medication - notified ERP of request. See ld1 MAR for orders. 17:21 Reassessment: No changes from previously documented assessment. Patient and/or family ld1 updated on plan of care and expected duration. Pain level reassessed. Patient states symptoms have not improved. Vital Signs: 12:42 BP 133 / 113; Pulse 114; Resp 20; Temp 97.9; Pulse Ox 95% on 1 lpm NC; Weight 81.65 kg; mb9 Height 4 ft. 11 in. (149.86 cm); Pain 10/10; 13:30 BP 102 / 67; Pulse 118; Resp 16; Pulse Ox 93% on 2 lpm NC; ld1 14:09 BP 92 / 75; Pulse 117; Resp 16; Pulse Ox 94% on 2 lpm NC; Pain 8/10; ld1 14:22 BP 94 / 65; Pulse 121; Resp 18; Pulse Ox 90% on 2 lpm NC; ld1 15:12 BP 92 / 79; Pulse 116; Resp 18; Pulse Ox 92% on 3 lpm NC; ld1 15:20 BP 94 / 66; Pulse 116; Resp 18; Pulse Ox 97% on 5 lpm NC; ld1 15:37 BP 85 / 72; Pulse 114; Resp 18; Pulse Ox 98% on 5 lpm NC; ld1 16:25 BP 83 / 60; Pulse 112; Resp 18; Pulse Ox 92% on 5 lpm NC; ld1 16:32 Weight 127.01 kg; ld1 16:40 BP 103 / 71; Pulse 116; Resp 18; Pulse Ox 94% on 3 lpm NC; ld1 17:00 BP 87 / 71; Pulse 113; Resp 18; Pulse Ox 98% on 3 lpm NC; ld1 16:32 Body Mass Index 56.55 (127.01 kg, 149.86 cm) ld1 ED Course: 12:34 Patient arrived in ED. ld1 12:34 Buddy Kumar PA is PHCP. jr8 12:34 Mitchell Palumbo DO is Attending Physician. jr8 12:35 Triage completed. ld1 12:35 Arm band placed on right wrist. ld1 12:36 Patient has correct armband on for positive identification. Placed in gown. Bed in low ld1 position. Call light in reach. Side rails up X2. outside plant supervisor on. Pulse ox on. NIBP on. Door closed. Noise minimized. Warm blanket given. 13:06 Hanh Echeverria, RN is Primary Nurse. ld1 13:30 Urine Microscopic Only Sent. ld1 16:04 Assisted provider with central line placement. Set up central line tray. Triple lumen ld1 line placed in left internal jugular. Line placed by Buddy GARCIA Placement verified by CXR, Dressed with Tegaderm, Blood was collected. Patient tolerated well. 16:25 Chest Single View XRAY In Process Unspecified. EDMS 16:35 Eren Varela MD is Hospitalizing Provider. jr8 16:55 SARS RAPID Sent. ld1 16:55 Glucose Sent. ld1 17:22 Report given to Sierra Guzman RN. ld1 Administered Medications: 14:04 Drug: NS 0.9% 1000 ml Route: IV; Rate: 1 bolus; Site: left antecubital; ld1 14:09 Drug: Dilaudid (HYDROmorphone) 0.5 mg Route: IVP; Site: left upper arm; ld1 17:23 Follow up: Response: No adverse reaction ld1 15:40 Drug: NS 0.9% 1000 ml Route: IV; Rate: 1 bolus; Site: left upper arm; ld1 17:23 Follow up: Response: No adverse reaction ld1 15:40 Drug: Dilaudid (HYDROmorphone) 1 mg Route: IVP; Site: left jugular; ld1 16:33 Follow up: Response: No adverse reaction ld1 17:23 Follow up: Response: No adverse reaction ld1 16:13 Not Given (Physician Discretion): Dilaudid (HYDROmorphone) 0.5 mg IVP once jr8 16:55 Drug: Cefepime 1 grams Route: IVPB; Rate: 200 ml/hr; Infused Over: 30 mins; Site: left ld1 upper arm; 17:23 Follow up: Response: No adverse reaction; IV Status: Completed infusion ld1 17:25 Drug: NS 0.9% 1000 ml Route: IV; Rate: 1000 ml; Site: Other; ap3 19:36 Not Given (charted in [employer] ): Insulin Drip - (Insulin Regular Human 100 units, NS jh5 0.9% 100 ml) IV at calculated rate continuous; Standard concentration 1unit/ml; Dose for DKA is 0.1 units/kg/hr Medication: 12:36 VIS not applicable for this client. ld1 Output: 17:25 Urine: 500ml; Total: 500ml. rs5 Outcome: 16:36 Decision to Hospitalize by Provider. jr8 08/07 21:37 Patient left the ED. jb4 Signatures: Dispatcher [employer] EDMS Kathy Hoyos RN Buddy Grande PA PA jr8 Saman Fernandez RN RN jb4 Sierra Avendano RN RN ap3 Hanh Echeverria RN RN ld1 Lisbeth Becker RN RN mb9 Osiel Goldstein rs5 Shaylee Cruz RN jh5 Corrections: (The following items were deleted from the chart) 08/06 16:05 12:36 No provider procedures requiring assistance completed. ld1 ld1
[2022-08-06] MEDS ORDERED: NA CHLORIDE 0.9% 100 ML IV ONE (16:42)
[2022-08-06] MEDS ORDERED: CEFEPIME 1 GM/VIAL ONE (16:42)
[2022-08-06] MEDS ORDERED: PROMETHAZINE INJ 25 MG/ML AMP IV PRN (17:09)
--- NOTE | 2022-08-06 17:16 | P.HP ---
Certification for Inpatient Patient admitted to: Inpatient With expected LOS: >2 Midnights Patient will require the following post-hospital care: Home Health Services Practitioner: I am a practitioner with admitting privileges, knowledge of patient current condition, hospital course, and medical plan of care. 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 he has a history of spina bifida and is wheelchair bound. the patient also is diabetic. He stopped taking his insulin 4 days ago. Started getting nausea, vomitting and diarrhea for the last 2 days. His mother usually gives the insulin. However she was going to [facility] and not able to make it over to his house to give the insulin. He was brought to the ER. Mild gap. However his sugars were in the 1600's Allergies levofloxacin [From Levaquin] Allergy (Intermediate, Verified 09/25/21 12:15) Hives morphine Allergy (Intermediate, Verified 09/25/21 12:15) Hives sulfamethoxazole [From Bactrim] Allergy (Intermediate, Verified 09/25/21 12:15) Hives ketorolac tromethamine [From Toradol] Allergy (Verified 09/25/21 12:15) Nausea/Vomiting Penicillins Allergy (Verified 09/25/21 12:15) Hives/Rash vancomycin Allergy (Verified 09/25/21 12:15) Hives ondansetron [From Zofran (as hydrochloride)] Adverse Reaction (Mild, Verified 09/25/21 12:15) Nausea/Vomiting amoxicillin [From Augmentin] Adverse Reaction (Verified 09/25/21 12:15) Hives/Rash ciprofloxacin Adverse Reaction (Verified 09/25/21 12:15) Nausea/Vomiting doxycycline Adverse Reaction (Verified 09/25/21 12:15) Nausea/Vomiting sesame seed Adverse Reaction (Verified 09/25/21 12:15) diarrhea pop corn Adverse Reaction (Severe, Uncoded 09/25/21 12:15) diarrhea Home Medications: Hydromorphone [Dilaudid] 4 mg PO Q8HP PRN 09/25/21 Insulin Glargine,Hum.rec.anlog [Semglee] 40 unit SQ DAILY 90 Days #40 ml 12/28/21 Edwin [Edwin*] 1 pkt PO BID 90 Days #90 powd.pack 12/28/21 Medihoney [Medihoney Woundcare Gel*] 1 appl TOP DAILY 90 Days #3 tube 12/28/21 Pen Needle, Diabetic, Safety [Assure Id Pen Needle] 1 each MC DAILY 90 Days #90 dis.needle 12/28/21 Amox/Clavulanate [Augmentin 875-125 Tab] 1 each PO BID 7 Days #14 tab 06/11/22 Ceftriaxone [Rocephin*] 1,000 mg IM DAILY 7 Days #7 ml 06/11/22 Smz./Tmp. [Bactrim Ds 800 MG/160 MG] 1 tab PO BID 7 Days #14 tab 06/11/22 - Past Medical/Surgical History Diabetic: No -: Spina Bifida with hydrocephalus -: Depression -: Insomnia -: Incontinence -: GERD -: Chronic pain syndrome -: Muscle wasting -: Paraplegia -: Shunt revision -: Cholecystectomy -: Foot surgery -: Hip sx BL -: Bilateral hip surgery -: Appendectomy Psychosocial/ Personal History: Patient currently single. He has no children. He is disabled. - Family History Father -: Hypertension Mother -: Hypertension - Social History Alcohol use: Yes CD- Drugs: No Caffeine use: Yes Review of Systems Gastrointestinal: Nausea, Vomiting, Diarrhea Physical Examination - Physical Exam General: Alert, In no apparent distress HEENT: Atraumatic, PERRLA, Mucous membr. moist/pink, EOMI, Sclerae nonicteric Neck: Supple, 2+ carotid pulse no bruit, No LAD, Without JVD or thyroid abnormality Respiratory: Clear to auscultation bilaterally, Normal air movement Cardiovascular: Normal S1 S2, Irregular heart rate/rhythm (tachycardia) Gastrointestinal: Normal bowel sounds, No tenderness Musculoskeletal: No tenderness Integumentary: No rashes Neurological: Normal gait, Normal speech, Normal strength at 5/5 x4 extr, Normal tone, Normal affect Lymphatics: No axilla or inguinal lymphadenopathy - Studies Laboratory Data (last 24 hrs) 08/06/22 13:56: Sodium 131 L, Potassium 5.0, BUN 35 H, Creatinine 2.58 H, Glucose 1673 H*, Total Bilirubin 0.7, AST 8 L, ALT 30, Alkaline Phosphatase 168 H, Lipase 4394 H 08/06/22 13:56: WBC 16.50 H, Hgb 18.0 H, Hct 54.5 H, Plt Count 307 Assessment and Plan - Problems (Diagnosis) (1) DKA, type 2 Current Visit: Yes Status: Acute Plan: will admit the patient to the ICU. Start him on insulin drip. Qualifiers: Diabetes mellitus complication detail: without coma Qualified Code(s): E11.10 - Type 2 diabetes mellitus with ketoacidosis without coma (2) Acute kidney failure Current Visit: Yes Status: Acute Plan: most likely prerenal. Will start aggressive fluids and monitor his creatine. His baseline is 0.6 to 1. Will consult nephrology on this patient. Qualifiers: Acute renal failure type: unspecified Qualified Code(s): N17.9 - Acute kidney failure, unspecified (3) Spina bifida Onset Date: 05/17/17 Current Visit: No Status: Chronic Plan: Patient is wheelchair bound. Will keep monitoring him. He was actually healed of his ulcer a s few weeks ago. Qualifiers: Spinal region: lumbar Presence of hydrocephalus: without hydrocephalus Qualified Code(s): Q05.7 - Lumbar spina bifida without hydrocephalus Discharge Plan: Home Plan to discharge in: 24 Hours - Advance Directives Does patient have a Living Will: No Does patient have a Durable POA for Healthcare: No - Code Status/Comfort Care Code Status Assessed: No Physician Review: Patient Assessed, Agree with Above Assessment and Plan Critical Care: Yes Time Spent Managing Pts Care (In Minutes): 45
[2022-08-06] MEDS ORDERED: HYDROCODONE/APAP 7.5/325 MG TAB PO PRN (17:18)
[2022-08-06 17:20] LABS: SARS-CoV-2 Antigen Rapid Res Negative (Negative)
[2022-08-06] MEDS: NA CHLORIDE 0.9% 1,000 ML IV SCH (18:00)
[2022-08-06] MEDS ORDERED: NA CHLORIDE 0.9% 250 ML IV ONE ×2 (21:40→22:30)
[2022-08-06] MEDS ORDERED: NA CHLORIDE 0.9% 500 ML ONE (21:44)
[2022-08-06] MEDS ORDERED: D5 0.45 NS 1,000 ML IV SCH (22:00)
[2022-08-06] MEDS ORDERED: GLUCAGON 1 MG/VIAL IM PRN (22:51)
[2022-08-06] MEDS ORDERED: D50W 25 GM/50 ML SYRINGE IV PRN (22:51)
[2022-08-06] MEDS ORDERED: INSULIN -REGULAR HUMAN 50 UNIT/0.5 ML ML IV ONE (22:53)
[2022-08-06] MEDS ORDERED: D10W 125 ML IV PRN (23:00)
[2022-08-06] MEDS ORDERED: INSULIN -REGULAR HUMAN 50 UNIT/0.5 ML ML ONE (23:00)
[2022-08-07] MEDS: NA CHLORIDE 0.9% 1,000 ML IV SCH (02:00)
[2022-08-07] MEDS ORDERED: NA CHLORIDE 0.9% 1,000 ML ONE (03:53)
[2022-08-07] MEDS ORDERED: INSULIN -REGULAR HUMAN 50 UNIT/0.5 ML ML ONE ×3 (04:47→20:39)
[2022-08-07] MEDS ORDERED: NA CHLORIDE 0.9% 0 ML IV ONE (04:47)
[2022-08-07] MEDS ORDERED: NA CHLORIDE 0.9% 100 ML IV ONE (04:52)
[2022-08-07 05:20] LABS: Absolute Lymphocytes (CBC) 0.6 K/uL (0.7-4.9); Hematocrit 49.6 % (39.6-49.0); Lymphocytes % 5.4 % (15.3-44.8); MCV 86.7 fL (80-100); MPV 8.8 fL (7.6-11.3); RBC Red Blood Cell Count 5.72 M/uL (4.33-5.43)
[2022-08-07 05:45] LABS: Albumin 3.1 g/dL (3.4-5.0); Bilirubin Total 0.4 mg/dL (0.2-1.0); Protein, Total 7.7 g/dL (6.4-8.2); Thyroid Stimulating Hormone 0.606 uIU/mL (0.358-3.740)
[2022-08-07] MEDS: PANTOPRAZOLE 40MG TABLET PO SCH (07:30)
[2022-08-07] MEDS ORDERED: HYDROCODONE/APAP 7.5/325 MG TAB ONE (07:40)
[2022-08-07] MEDS: NACHLORIDE 0.45% 1,000 ML IV SCH ×3 (09:00→16:37)
--- NOTE | 2022-08-07 09:07 | P.PN ---
Subjective Date of Service: 08/07/22 Primary Care Provider: Nichole Chief Complaint: DKA Subjective: Improving Review of Systems 10-point ROS is otherwise unremarkable Physical Examination - Vital Signs Temperature: 98.5 F Blood Pressure: 92/57 Pulse: 119 Respirations: 15 Pulse Ox (%): 95 - Physical Exam General: Alert, In no apparent distress HEENT: Atraumatic, PERRLA, EOMI Neck: Supple, JVD not distended Respiratory: Clear to auscultation bilaterally, Normal air movement Cardiovascular: Regular rate/rhythm, Normal S1 S2 Gastrointestinal: Normal bowel sounds, No tenderness Musculoskeletal: No tenderness Integumentary: No rashes Neurological: Normal speech, Normal tone, Normal affect Lymphatics: No axilla or inguinal lymphadenopathy - Studies Laboratory Data (last 24 hrs) 08/06/22 16:47: Glucose 1519 H* 08/06/22 13:56: Sodium 131 L, Potassium 5.0, BUN 35 H, Creatinine 2.58 H, Glucose 1673 H*, Total Bilirubin 0.7, AST 8 L, ALT 30, Alkaline Phosphatase 168 H, Lipase 4394 H 08/06/22 13:56: WBC 16.50 H, Hgb 18.0 H, Hct 54.5 H, Plt Count 307 Assessment And Plan - Current Problems (Diagnosis) (1) DKA, type 2 Current Visit: Yes Status: Acute Plan: will admit the patient to the ICU. Start him on insulin drip. Qualifiers: Diabetes mellitus complication detail: without coma Qualified Code(s): E11.10 - Type 2 diabetes mellitus with ketoacidosis without coma (2) Acute kidney failure Current Visit: Yes Status: Acute Plan: most likely prerenal. Will start aggressive fluids and monitor his creatine. His baseline is 0.6 to 1. Will consult nephrology on this patient. 08/07 creatine worsened. He has some hypernatremia as well. Agree with nephrology switching him to 1/2 N saline Qualifiers: Acute renal failure type: unspecified Qualified Code(s): N17.9 - Acute k idney failure, unspecified (3) Spina bifida Onset Date: 05/17/17 Current Visit: No Status: Chronic Plan: Patient is wheelchair bound. Will keep monitoring him. He was actually healed of his ulcer a s few weeks ago. Qualifiers: Spinal region: lumbar Presence of hydrocephalus: without hydrocephalus Qualified Code(s): Q05.7 - Lumbar spina bifida without hydrocephalus Discharge Plan: Home Plan to discharge in: Greater than 2 days - Code Status/Comfort Care Code Status Assessed: No Code Status: Full Code Physician Review: Patient Assessed, Agree with Above Assessment and Plan Critical Care: Yes Time Spent Managing PTS Care (In Minutes): 20
[2022-08-07] MEDS ORDERED: PANTOPRAZOLE 40MG TABLET PO ONE (09:26)
[2022-08-07] MEDS ORDERED: NACHLORIDE 0.45% 1,000 ML IV ONE ×3 (09:27→20:42)
--- NOTE | 2022-08-07 10:25 | P.CNS ---
Date of Consult: 08/07/22 Reason for Consult: Renal failure, hypernatremia Requesting Physician: Eren Varela Primary Care Provider: Nichole Chief Complaint: DKA History of Present Illness: Patient is a younger male with a reported history of spina bifida, reportedly wheelchair bound with deformities of the feet with left foot wrapped and pt unable to elaborate if he has a chronic wound or other. Pt also has IDDM/Type II DM and possibly was not receiving his Insulin as prescribed. Pt is a poor historian and in mild to moderate distress when seen, he cites generalized abdominal pain, severe, persistent. He acknowledges some nausea. He has been on IVF and on a Insulin drip for DKA on admission. He acknowledges prior DKA episodes. His labs show renal insufficiency and pt acknowledges renal issues in the past but is not able to elaborate, he reports seeing MOM[facility] Tony. Pt appears to have a suprapubic catheter. UA on admission abnormal. Allergies levofloxacin [From Levaquin] Allergy (Intermediate, Verified 09/25/21 12:15) Hives morphine Allergy (Intermediate, Verified 09/25/21 12:15) Hives sulfamethoxazole [From Bactrim] Allergy (Intermediate, Verified 09/25/21 12:15) Hives ketorolac tromethamine [From Toradol] Allergy (Verified 09/25/21 12:15) Nausea/Vomiting Penicillins Allergy (Verified 09/25/21 12:15) Hives/Rash vancomycin Allergy (Verified 09/25/21 12:15) Hives ondansetron [From Zofran (as hydrochloride)] Adverse Reaction (Mild, Verified 09/25/21 12:15) Nausea/Vomiting amoxicillin [From Augmentin] Adverse Reaction (Verified 09/25/21 12:15) Hives/Rash ciprofloxacin Adverse Reaction (Verified 09/25/21 12:15) Nausea/Vomiting doxycycline Adverse Reaction (Verified 09/25/21 12:15) Nausea/Vomiting sesame seed Adverse Reaction (Verified 09/25/21 12:15) diarrhea pop corn Adverse Reaction (Severe, Uncoded 09/25/21 12:15) diarrhea Home Medications: Hydromorphone [Dilaudid] 4 mg PO Q8HP PRN 09/25/21 Insulin Glargine,Hum.rec.anlog [Semglee] 40 unit SQ DAILY 90 Days #40 ml 12/28/21 Edwin [Edwin*] 1 pkt PO BID 90 Days #90 powd.pack 12/28/21 Medihoney [Medihoney Woundcare Gel*] 1 appl TOP DAILY 90 Days #3 tube 12/28/21 Pen Needle, Diabetic, Safety [Assure Id Pen Needle] 1 each MC DAILY 90 Days #90 dis.needle 12/28/21 Amox/Clavulanate [Augmentin 875-125 Tab] 1 each PO BID 7 Days #14 tab 06/11/22 Ceftriaxone [Rocephin*] 1,000 mg IM DAILY 7 Days #7 ml 06/11/22 Smz./Tmp. [Bactrim Ds 800 MG/160 MG] 1 tab PO BID 7 Days #14 tab 06/11/22 - Past Medical/Surgical History Diabetic: No -: Spina Bifida with hydrocephalus -: Depression -: Insomnia -: Incontinence -: GERD -: Chronic pain syndrome -: Muscle wasting -: Paraplegia -: Shunt revision -: Cholecystectomy -: Foot surgery -: Hip sx BL -: Bilateral hip surgery -: Appendectomy Psychosocial/ Personal History: Patient currently single. He has no children. He is disabled. - Family History Father Medical History: Hypertension Mother Medical History: Hypertension - Social History Smoking Status: Current every day smoker Alcohol use: Yes CD- Drugs: No Caffeine use: Yes Review of Systems is unable to be obtained (Pt is in pain and unable to cooperate with a comprehensive ROS, limited ROS as per below) General: Malaise, As per HPI Gastrointestinal: Abdominal Pain, Other (Reports last BM yesterday) Genitourinary: As per HPI Musculoskeletal: As per HPI Neurological: As per HPI Physical Examination Temp Pulse Resp BP Pulse Ox 98.5 F 119 H 15 92/57 L 95 08/07/22 09:06 08/07/22 09:06 08/07/22 09:06 08/07/22 09:06 08/07/22 09:06 General: Moderate distress HEENT: Atraumatic, Normocephalic, Sclerae nonicteric Neck: Supple, Other (Lt IJ CVC) Respiratory: Other (B/l air entry, mildly tachypnec) Cardiovascular: Other (Tachy but mostly regular) Gastrointestinal: Other (Soft, obese, generalized TTP, some guarding, supra pubic catheter with leg bag containing cloudy urine) Musculoskeletal: Other (Deformities of foot, prior toe amputaitons, left foot wrapped, unable to fully examine, swelling of dorsum of Rt foot) Integumentary: Other (As per above) Neurological: Normal speech, Normal affect, Other (Moves ext spont) Urinary: Suprapubic catheter Laboratory Data (last 24 hrs) 08/06/22 16:47: Glucose 1519 H* 08/06/22 13:56: Sodium 131 L, Potassium 5.0, BUN 35 H, Creatinine 2.58 H, Glucose 1673 H*, Total Bilirubin 0.7, AST 8 L, ALT 30, Alkaline Phosphatase 168 H, Lipase 4394 H 08/06/22 13:56: WBC 16.50 H, Hgb 18.0 H, Hct 54.5 H, Plt Count 307 Conclusions/Impression: A/P) 1. Abnormal results of kidney function studies. Stage II GIFTY in the setting of dehydration, volume depletion, DKA, apparent recent Bactrim use (as listed among home meds) +/- other. Has evidence of some UOP in catheter bag but no initial improvement in Cr levels with fluids administered. Cont aggressive IVF hydration, avoid nephrotoxic meds/agents. 2. Severe hypernatremia with corrected Na as high as 158 or more in the setting of DKA, dehydration, other. Given some hypotension, potential infection and DKA, will place on hypotonic IVF with 1/2 NS at a calculate rate of 200 cc/hr. Will monitor Na levels closely 3. Abnormal findings in urine, pyuria. Hx of chronic suprapubic catheter. No hydro or other disorders of the kidney and ureter noted on prior CT imaging. Hx of Proteus, Ecoli and Providencia on prior urine testing, only the latter was resistant to Rocephin. Will place on Rocephin IV 2 gm qd if pharmacy can verify that he does not have allergy or contraindication to it use, as with pt's abdominal pain and leukocytosis, pt may have a complicated UTI including possible pyelonephritis. 4. DKA management per primary team, positive serum and urine ketones on admission, gap present. BG remain > 300 on the latest. 5. Hypotension 2nd to hypovolemia, other -cont IVF hydration as mentioned above Lyle Alonzo MD, FLOR
[2022-08-07] MEDS ORDERED: HYDROMORPHONE HCL 0.5 MG/0.5 ML INJ ONE (13:05)
[2022-08-07] MEDS: HYDROMORPHONE HCL 0.5 MG/0.5 ML INJ IV PRN ×2 (13:05→22:13)
[2022-08-07 16:32] LABS: Potassium 4.5 mmol/L (3.5-5.1)
[2022-08-07] MEDS ORDERED: ENOXAPARIN 30 MG/0.3 ML SQ SCH (17:00)
[2022-08-07] MEDS ORDERED: ENOXAPARIN 30 MG/0.3 ML SQ ONE (17:20)
[2022-08-07] MEDS ORDERED: NA CHLORIDE 0.9% 100 ML ONE (20:40)
[2022-08-07] MEDS ORDERED: GLUCAGON 1 MG/VIAL IM PRN (21:06)
[2022-08-07] MEDS ORDERED: INSULIN GLARGINE 100 UNIT/ML SQ ONE (21:06)
[2022-08-07] MEDS ORDERED: D50W 25 GM/50 ML SYRINGE IV PRN (21:06)
[2022-08-07 22:57] VITALS: BMI 57.7
[2022-08-08] MEDS: NACHLORIDE 0.45% 1,000 ML IV SCH ×5 (00:37→19:30)
[2022-08-08] MEDS: HYDROMORPHONE HCL 0.5 MG/0.5 ML INJ IV PRN (02:25)
[2022-08-08 07:01] LABS: Absolute Lymphocytes (CBC) 1.6 K/uL (0.7-4.9); Hematocrit 46.2 % (39.6-49.0); Lymphocytes % 15.8 % (15.3-44.8); MCV 85.9 fL (80-100); MPV 9.2 fL (7.6-11.3); RBC Red Blood Cell Count 5.38 M/uL (4.33-5.43)
[2022-08-08] MEDS: CEFTRIAXONE 2,000 MG in NA CHLORIDE 0.9% 100 ML IV SCH (07:52)
[2022-08-08] MEDS: PANTOPRAZOLE 40MG TABLET PO SCH (07:52)
[2022-08-08 08:01] LABS: Albumin 2.8 g/dL (3.4-5.0); Bilirubin Total 0.6 mg/dL (0.2-1.0); Potassium 4.3 mmol/L (3.5-5.1); Protein, Total 7.1 g/dL (6.4-8.2)
[2022-08-08] MEDS: INSULIN -REGULAR HUMAN 50 UNIT/0.5 ML ML SQ SCH ×4 (08:06→22:04)
--- NOTE | 2022-08-08 08:21 | P.PN ---
Subjective Date of Service: 08/08/22 Primary Care Provider: Nichole Chief Complaint: DKA Subjective: Improving (complainting of pain. He states he takes 2 lortabs at home. He has said this in the past. Have called Dr. Nina and found this not the case) Review of Systems 10-point ROS is otherwise unremarkable General: Malaise Physical Examination - Vital Signs Temperature: 98.5 F Blood Pressure: 139/62 Pulse: 82 Respirations: 28 Pulse Ox (%): 96 - Physical Exam General: Alert, In no apparent distress, Moderate distress HEENT: Atraumatic, PERRLA, EOMI Neck: Supple, JVD not distended Respiratory: Clear to auscultation bilaterally, Normal air movement Cardiovascular: Regular rate/rhythm, Normal S1 S2 Gastrointestinal: Normal bowel sounds, No tenderness Musculoskeletal: No tenderness Integumentary: No rashes Neurological: Normal speech, Normal tone, Normal affect Lymphatics: No axilla or inguinal lymphadenopathy - Studies Microbiology Data (last 24 hrs): 08/06/22 16:10 Blood - Blood Blood Culture Gram Stain - Final 08/06/22 16:13 Blood - Blood Gram Stain - Final Assessment And Plan - Current Problems (Diagnosis) (1) DKA, type 2 Current Visit: Yes Status: Acute Plan: will admit the patient to the ICU. Start him on insulin drip. 08/08 resolving. Will move him to the floors. He today states he dosen't really want to go to a snf to have regular insulin. Will need diabetic education to see him as well as get some home health for the patient Qualifiers: Diabetes mellitus complication detail: without coma Qualified Code(s): E11.10 - Type 2 diabetes mellitus with ketoacidosis without coma (2) Acute kidney failure Current Visit: Yes Status: Acute Plan: most likely prerenal. Will start aggressive fluids and monitor his creatine. His baseline is 0.6 to 1. Will consult nephrology on this patient. 08/07 creatine worsened. He has some hypernatremia as well. Agree with nephrology switching him to 1/2 N saline Qualifiers: Acute renal failure type: unspecified Qualified Code(s): N17.9 - Acute kidney failure, unspecified (3) Spina bifida Onset Date: 05/17/17 Current Visit: No Status: Chronic Plan: Patient is wheelchair bound. Will keep monitoring him. He was actually healed of his ulcer a s few weeks ago. 08/08 Will increase his lortab to 10/325 in house. He was asking for more pain meds through out the night. Mostly when he woke up. Was sleeping comfortable throught the night. Roland has a long history of confabulation. Considering his quality of life this can be somewhat understandable Qualifiers: Spinal region: lumbar Presence of hydrocephalus: without hydrocephalus Qualified Code(s): Q05.7 - Lumbar spina bifida without hydrocephalus Discharge Plan: Home Plan to discharge in: Greater than 2 days - Code Status/Comfort Care Code Status Assessed: No Physician Review: Patient Assessed, Agree with Above Assessment and Plan Critical Care: Yes Time Spent Managing PTS Care (In Minutes): 25
[2022-08-08] MEDS: HYDROCODONE/APAP 10/325 TAB PO PRN ×3 (08:24→22:03)
[2022-08-08] MEDS ORDERED: INSULIN GLARGINE 100 UNIT/ML SQ SCH (09:25)
--- NOTE | 2022-08-08 10:20 | P.PN ---
Nephrology note: (S) Pt has been moved out of the ICU, BG back up > 400 this AM but off Insulin drip, has been initiated on basal/bolus Insulin. Remains on 1/2 NS IVF, has had excellent UOP. Not complaining of as much abd pain as yesterday in the ER (O) Vitals reviewed in the EMR General: Lethargic, NAD HEENT: Atraumatic, Normocephalic, Sclerae nonicteric, NC Neck: Supple, Other (Lt IJ CVC) Respiratory: Other (B/l air entry, non tachypnec) Cardiovascular: Other (Less tachy but mostly regular) Gastrointestinal: Other (Soft, obese, some lower abd tenderness, no guarding, supra pubic catheter with leg bag) Musculoskeletal: Other (Deformities of foot, prior toe amputaitons, left foot wrapped, unable to fully examine, swelling of dorsum of Rt foot) Integumentary: Other (As per above) Neurological: Lethargic but awakens easily, responds briefly, moves ext spont Urinary: Suprapubic catheter Laboratory Data (last 24 hrs) Reviewed in the EMR Conclusions/Impression: A/P) 1. Abnormal results of kidney function studies. Stage II GIFTY in the setting of dehydration, volume depletion, DKA, apparent recent Bactrim use (as listed among home meds) +/- other. Renal function improving with aggressive IVF hydration, avoid nephrotoxic meds/agents. Monitor UOP, auto-diuresing post GIFTY and on IVF and with elevated BG 2. Severe hypernatremia with corrected Na as high as 158 or more yesterday in the setting of DKA, dehydration, other. BG remain elevated, avoiding dextrose hypotonic IVF, cont 1/2 NS at current rate. 3. Abnormal findings in urine, pyuria. Hx of chronic suprapubic catheter. No hydro or other disorders of the kidney and ureter noted on prior CT imaging. Hx of Proteus, Ecoli and Providencia on prior urine testing, only the latter was resistant to Rocephin. Did place on Rocephin IV 2 gm qd and UCx here are showing now GNR growth. 4. DKA/hyperglycemia management per Dr. Varela. Gap closed, off insulin gtt. 5. Hypotension 2nd to hypovolemia, other -resolved. Lyle Alonzo MD, [facility]
[2022-08-08] MEDS: ENOXAPARIN 40 MG/0.4 ML SQ SCH (17:00)
[2022-08-09] MEDS: NACHLORIDE 0.45% 1,000 ML IV SCH ×3 (00:37→08:37)
[2022-08-09] MEDS: HYDROCODONE/APAP 10/325 TAB PO PRN ×4 (03:17→22:05)
[2022-08-09 06:22] LABS: Absolute Lymphocytes (CBC) 1.8 K/uL (0.7-4.9); Hematocrit 45.8 % (39.6-49.0); Lymphocytes % 24.7 % (15.3-44.8); MCV 86.9 fL (80-100); MPV 8.9 fL (7.6-11.3); RBC Red Blood Cell Count 5.27 M/uL (4.33-5.43)
[2022-08-09 06:39] LABS: Albumin 2.7 g/dL (3.4-5.0); Bilirubin Total 0.6 mg/dL (0.2-1.0); Potassium 4.2 mmol/L (3.5-5.1); Protein, Total 7.3 g/dL (6.4-8.2)
[2022-08-09] MEDS ORDERED: INSULIN -REGULAR HUMAN 50 UNIT/0.5 ML ML SQ ONE (07:03)
[2022-08-09] MEDS ORDERED: NA CHLORIDE 0.9% 100 ML ONE (08:11)
[2022-08-09] MEDS ORDERED: CEFTRIAXONE 2000 MG/VIAL ONE (08:19)
--- NOTE | 2022-08-09 08:53 | P.PN ---
Subjective Date of Service: 08/09/22 Primary Care Provider: Nichole Chief Complaint: DKA Subjective: No new changes Review of Systems 10-point ROS is otherwise unremarkable Physical Examination - Vital Signs Temperature: 97.4 F Blood Pressure: 143/93 Pulse: 96 Respirations: 18 Pulse Ox (%): 95 - Physical Exam General: Alert, In no apparent distress HEENT: Atraumatic, PERRLA, EOMI Neck: Supple, JVD not distended Respiratory: Clear to auscultation bilaterally, Normal air movement Cardiovascular: Regular rate/rhythm, Normal S1 S2 Gastrointestinal: Normal bowel sounds, No tenderness Musculoskeletal: No tenderness Integumentary: No rashes Neurological: Normal speech, Normal tone, Normal affect Lymphatics: No axilla or inguinal lymphadenopathy - Studies Microbiology Data (last 24 hrs): 08/06/22 13:22 Clean Catch Urine [place] Count - Final >100,000 CFU/ML. 08/06/22 13:22 Clean Catch Urine - Final Providencia Stuartii 08/06/22 16:13 Blood - Blood Aerobic Blood Culture - Final Staph Epidermidis 08/06/22 16:13 Blood - Blood Anaerobic Blood Culture - Final Staph Epidermidis 08/06/22 16:13 Blood - Blood Gram Stain - Final 08/06/22 16:10 Blood - Blood Aerobic Blood Culture - Final Staph Epidermidis 08/06/22 16:10 Blood - Blood Blood Culture Gram Stain - Final 08/06/22 16:10 Blood - Blood Anaerobic Blood Culture - Final Staph Epidermidis 08/06/22 16:10 Blood - Blood Gram Stain - Final Assessment And Plan - Current Problems (Diagnosis) (1) DKA, type 2 Current Visit: Yes Status: Acute Plan: will admit the patient to the ICU. Start him on insulin drip. 08/09 not well controlled. Increase his insulin to 45 units. Will cover him on a sliding scale. If he improves will be able to discharge him home Qualifiers: Diabetes mellitus complication detail: without coma Qualified Code(s): E11.10 - Type 2 diabetes mellitus with ketoacidosis without coma (2) Acute kidney failure Current Visit: Yes Status: Acute Plan: most likely prerenal. Will start aggressive fluids and monitor his creatine. His baseline is 0.6 to 1. Will consult nephrology on this patient. 08/07 creatine worsened. He has some hypernatremia as well. Agree with nephrology switching him to 1/2 N saline Qualifiers: Acute renal failure type: unspecified Qualified Code(s): N17.9 - Acute kidney failure, unspecified (3) Spina bifida Onset Date: 05/17/17 Current Visit: No Status: Chronic Plan: Patient is wheelchair bound. Will keep monitoring him. He was actually healed of his ulcer a s few weeks ago. 08/08 Will increase his lortab to 10/325 in house. He was asking for more pain meds through out the night. Mostly when he woke up. Was sleeping comfortable throught the night. Roland has a long history of confabulation. Considering his quality of life this can be somewhat understandable Qualifiers: Spinal region: lumbar Presence of hydrocephalus: without hydrocephalus Qualified Code(s): Q05.7 - Lumbar spina bifida without hydrocephalus Discharge Plan: Home Plan to discharge in: 24 Hours - Code Status/Comfort Care Code Status Assessed: No Physician Review: Patient Assessed, Agree with Above Assessment and Plan Critical Care: No Time Spent Managing PTS Care (In Minutes): 20
[2022-08-09] MEDS ORDERED: INSULIN GLARGINE 100 UNIT/ML SQ SCH (09:00)
[2022-08-09] MEDS: INSULIN GLARGINE 100 UNIT/ML SQ SCH (09:13)
[2022-08-09] MEDS: PANTOPRAZOLE 40MG TABLET PO SCH (09:14)
[2022-08-09] MEDS: CEFTRIAXONE 2,000 MG in NA CHLORIDE 0.9% 100 ML IV SCH (09:14)
[2022-08-09] MEDS: INSULIN -REGULAR HUMAN 50 UNIT/0.5 ML ML SQ SCH ×4 (09:23→22:04)
--- NOTE | 2022-08-09 09:46 | P.PN ---
Nephrology note: (S) Pt appears to be doing better but still c/o generalized pain and reports [place] not helping. Reviewed positive cultures and discussed case with Dr. Varela (O) Vitals reviewed in the EMR General: Lethargic, NAD HEENT: Atraumatic, Normocephalic, Sclerae nonicteric, NC Neck: Supple, Other (Lt IJ CVC) Respiratory: Other (B/l air entry, non tachypnec) Cardiovascular: Other (Less tachy but mostly regular) Gastrointestinal: Other (Soft, obese, some lower abd tenderness, no guarding, supra pubic catheter with leg bag) Musculoskeletal: Other (Deformities of foot, prior toe amputaitons, left foot wrapped, unable to fully examine, swelling of dorsum of Rt foot) Integumentary: Other (As per above) Neurological: Less lethargic. awake, responsive, moves ext spont Urinary: Suprapubic catheter Laboratory Data (last 24 hrs) Reviewed in the EMR Conclusions/Impression: A/P) 1. Abnormal results of kidney function studies. Stage II GIFTY in the setting of dehydration, volume depletion, DKA, apparent recent Bactrim use (as listed among home meds) +/- other. Renal function improved, GIFTY resolved. Monitor UOP, auto- diuresing post GIFTY and on IVF and with elevated BG 2. Severe hypernatremia with corrected Na as high as 158 or more in the setting of DKA, dehydration, other. Now resolved. D/c 1/2 NS when current bag completes 3. Abnormal findings in urine, pyuria. Hx of chronic suprapubic catheter. No hydro or other disorders of the kidney and ureter noted on prior CT imaging. Hx of Proteus, Ecoli and Providencia on prior urine testing, only the latter was resistant to Rocephin. Did place on Rocephin IV 2 gm qd and UCx here did grow out MDR Providencia resistant to Rocephin. Discussed case with Dr. Varela, could have Urology exchange (infected/colonized) suprapubic catheter here and Meropenem is an Abx option. 4. DKA/hyperglycemia management per Dr. Varela. Gap closed, off insulin gtt but BG remain elevated. 5. Hypotension 2nd to hypovolemia, other -resolved. Pt does have methicillin resistant Staph epi bacteremia on peripheral BCx, will defer management to Dr. Varela. Lyle Alonzo MD, [facility]
[2022-08-09] MEDS ORDERED: NACHLORIDE 0.45% 1,000 ML IV SCH (10:00)
[2022-08-09] MEDS: Meropenem 1,000 MG in NA CHLORIDE 0.9% 100 ML IV SCH ×3 (10:30→23:59)
[2022-08-09] MEDS ORDERED: Meropenem 1000 MG/VIAL IV ONE (16:40)
[2022-08-09] MEDS: ENOXAPARIN 40 MG/0.4 ML SQ SCH (16:51)
[2022-08-09] MEDS: JUVEN PACKET PO SCH ×2 (21:00→22:05)
--- NOTE | 2022-08-09 22:55 | P.CNS ---
Date of Consult: 08/09/22 37-year-old wheelchair-bound gentleman with spina bifida and hydrocephalus, IDDM, GERD, and paraplegia presented and admitted by Dr. Varela because of issues with nausea, vomiting and diarrhea for 2 days. He was admitted on 08/06/2022. Apparently he had stopped taking his insulin 4 days prior. He was seen via the emergency department. His sugars were in the 1600s according to the note. Dr. Varela contacted me to exchange the suprapubic catheter because of concern for sepsis from a complicated UTI. The patient has a suprapubic catheter. He says he has the catheter exchanged somewhere between every 6 to 8 weeks at [facility] in [place]. He lives in [place], but he does not prefer going to the [facility] facility for some reason. He says he would prefer to come to [place] for his care, but he has not been seen by me in over 2 years because initially I was not on his insurance plan. He says he has had issues with Pseudomonas infections in the past associated with the suprapubic catheter. Past medical history: Spina bifida with hydrocephalus, depression, insomnia, incontinence, GERD, chronic pain syndrome, muscle wasting, paraplegia Past surgical history: [employer] shunt, cholecystectomy, bilateral hip surgery, appendectomy Family history negative for malignancy Social history positive for alcohol use but denies drug use Examination: Alert, awake, oriented x3 in no acute distress No dyspnea or sign of respiratory distress Morbidly obese and abdominal skin/pannus tender to soft/gentle palpation of uncertain etiology Suprapubic catheter in place with purulent appearing urine draining into a leg bag attached to his right thigh region 08/06/2022 urine culture presumably from the catheter revealed procidentia sensitive to Bactrim, Zosyn, meropenem, and ceftazidime. Intermediately sensitive to Unasyn, otherwise resistant. 08/06/2022 chest x-ray with left jugular central line placed with tip at the SVC junction. No pneumothorax Suprapubic catheter exchange procedure note: The patient was placed flat in the supine position in the hospital bed. His abdominal pannus was gently lifted and the indwelling suprapubic catheter balloon was deflated and it was removed. A significant gush of urine came out the second the catheter was removed suggesting the catheter was indeed obstructed. As a result, I prepped the suprapubic entry site with Betadine copiously and draped the area. I passed a new 18 [place] catheter into his bladder via the suprapubic site with ease, and there was drainage of relatively clear urine. 10 cc of sterile water was placed in the balloon, and I secured the catheter in a more healthy position with a StatLock at his right upper thigh. He tolerated the procedure well and without obvious complication. Assessment and recommendation: 37-year-old wheelchair-bound gentleman with spina bifida and hydrocephalus, IDDM, GERD, and paraplegia with chronic indwelling suprapubic catheter previously managed at [facility] but inconsistently, with recurrent UTIs with highly resistant organisms. -Suprapubic catheter exchanged today, 08/09/2022 -Recommend follow-up in the urology clinic within the next 4 to 6 weeks for cystoscopy to evaluate for bladder calculus underlying these recurrent infections -Renal ultrasound to rule out upper tract calculus as the source of recurrent UTIs but also to rule out hydronephrosis from obstruction -Otherwise, he should seek follow-up with his urologist at [facility] and ensure evaluation for these recurrent UTIs and a more routine suprapubic catheter exchanges, typically every 4 to 6 weeks.
[2022-08-10] MEDS: HYDROCODONE/APAP 10/325 TAB PO PRN ×3 (06:16→20:07)
[2022-08-10] MEDS ORDERED: VANCOMYCIN 1 GM in NA CHLORIDE 0.9% 250 ML IVPB SCH (08:31)
--- NOTE | 2022-08-10 08:35 | P.PN ---
Subjective Date of Service: 08/10/22 Primary Care Provider: Nichole Chief Complaint: DKA Subjective: No new changes Review of Systems 10-point ROS is otherwise unremarkable Physical Examination - Vital Signs Temperature: 97.3 F Blood Pressure: 99/54 Pulse: 98 Respirations: 16 Pulse Ox (%): 96 - Physical Exam General: Alert, In no apparent distress HEENT: Atraumatic, PERRLA, EOMI Neck: Supple, JVD not distended Respiratory: Clear to auscultation bilaterally, Normal air movement Cardiovascular: Regular rate/rhythm, Normal S1 S2 Gastrointestinal: Normal bowel sounds, No tenderness Musculoskeletal: No tenderness Integumentary: No rashes Neurological: Normal speech, Normal tone, Normal affect Lymphatics: No axilla or inguinal lymphadenopathy - Studies Microbiology Data (last 24 hrs): 08/06/22 13:22 Clean Catch Urine [place] Count - Final >100,000 CFU/ML. 08/06/22 13:22 Clean Catch Urine - Final Providencia Stuartii 08/06/22 16:13 Blood - Blood Aerobic Blood Culture - Final Staph Epidermidis 08/06/22 16:13 Blood - Blood Anaerobic Blood Culture - Final Staph Epidermidis 08/06/22 16:13 Blood - Blood Gram Stain - Final 08/06/22 16:10 Blood - Blood Aerobic Blood Culture - Final Staph Epidermidis 08/06/22 16:10 Blood - Blood Blood Culture Gram Stain - Final 08/06/22 16:10 Blood - Blood Anaerobic Blood Culture - Final Staph Epidermidis 08/06/22 16:10 Blood - Blood Gram Stain - Final Assessment And Plan - Current Problems (Diagnosis) (1) DKA, type 2 Current Visit: Yes Status: Acute Plan: will admit the patient to the ICU. Start him on insulin drip. 08/09 not well controlled. Increase his insulin to 45 units. Will cover him on a sliding scale. If he improves will be able to discharge him home Qualifiers: Diabetes mellitus complication detail: without coma Qualified Code(s): E11.10 - Type 2 diabetes mellitus with ketoacidosis without coma (2) Acute kidney failure Current Visit: Yes Status: Acute Plan: most likely prerenal. Will start aggressive fluids and monitor his creatine. His baseline is 0.6 to 1. Will consult nephrology on this patient. 08/07 creatine worsened. He has some hypernatremia as well. Agree with nephrology switching him to 1/2 N saline Qualifiers: Acute renal failure type: unspecified Qualified Code(s): N17.9 - Acute kidney failure, unspecified (3) Spina bifida Onset Date: 05/17/17 Current Visit: No Status: Chronic Plan: Patient is wheelchair bound. Will keep monitoring him. He was actually healed of his ulcer a s few weeks ago. 08/08 Will increase his lortab to 10/325 in house. He was asking for more pain meds through out the night. Mostly when he woke up. Was sleeping comfortable throught the night. Roland has a long history of confabulation. Considering his quality of life this can be somewhat understandable Qualifiers: Spinal region: lumbar Presence of hydrocephalus: without hydrocephalus Qualified Code(s): Q05.7 - Lumbar spina bifida without hydrocephalus (4) Sepsis Current Visit: Yes Status: Acute Plan: he is unfortunately allergic to the po antibiotics. will order a picc line and get him placed for meropenem and vancomycin treatment. Will need 10 days Qualifiers: Sepsis type: Streptococcus, other Sepsis acute organ dysfunction status: without acute organ dysfunction Qualified Code(s): A40.8 - Other streptococcal sepsis (5) Complicated UTI (urinary tract infection) Current Visit: No Status: Acute Plan: provedencia Requires meropenem Physician Review: Patient Assessed, Agree with Above Assessment and Plan
[2022-08-10] MEDS: JUVEN PACKET PO SCH ×2 (09:00→20:06)
[2022-08-10] MEDS: PANTOPRAZOLE 40MG TABLET PO SCH (09:08)
[2022-08-10] MEDS: INSULIN GLARGINE 100 UNIT/ML SQ SCH (09:09)
[2022-08-10] MEDS: INSULIN -REGULAR HUMAN 50 UNIT/0.5 ML ML SQ SCH ×4 (09:09→20:06)
[2022-08-10] MEDS: Meropenem 1,000 MG in NA CHLORIDE 0.9% 100 ML IV SCH ×2 (09:09→16:03)
[2022-08-10] MEDS: ENOXAPARIN 40 MG/0.4 ML SQ SCH (16:03)
[2022-08-11] MEDS: Meropenem 1,000 MG in NA CHLORIDE 0.9% 100 ML IV SCH ×3 (00:40→16:00)
[2022-08-11] MEDS: HYDROCODONE/APAP 10/325 TAB PO PRN ×4 (02:04→21:23)
[2022-08-11] MEDS: JUVEN PACKET PO SCH ×2 (09:00→21:00)
[2022-08-11] MEDS: INSULIN GLARGINE 100 UNIT/ML SQ SCH (09:33)
[2022-08-11] MEDS: INSULIN -REGULAR HUMAN 50 UNIT/0.5 ML ML SQ SCH ×4 (09:33→21:25)
[2022-08-11] MEDS: PANTOPRAZOLE 40MG TABLET PO SCH (09:33)
--- NOTE | 2022-08-11 10:57 | P.PN ---
Subjective Date of Service: 08/11/22 Primary Care Provider: Nichole Chief Complaint: DKA Subjective: No new changes Review of Systems 10-point ROS is otherwise unremarkable Physical Examination - Vital Signs Temperature: 97.1 F Blood Pressure: 144/84 Pulse: 87 Respirations: 18 Pulse Ox (%): 95 - Physical Exam General: Alert, In no apparent distress HEENT: Atraumatic, PERRLA, EOMI Neck: Supple, JVD not distended Respiratory: Clear to auscultation bilaterally, Normal air movement Cardiovascular: Regular rate/rhythm, Normal S1 S2 Gastrointestinal: Normal bowel sounds, No tenderness Musculoskeletal: No tenderness Integumentary: No rashes Neurological: Normal speech, Normal tone, Normal affect Lymphatics: No axilla or inguinal lymphadenopathy Assessment And Plan - Current Problems (Diagnosis) (1) DKA, type 2 Current Visit: Yes Status: Acute Plan: will admit the patient to the ICU. Start him on insulin drip. 08/09 not well controlled. Increase his insulin to 45 units. Will cover him on a sliding scale. If he improves will be able to discharge him home Qualifiers: Diabetes mellitus complication detail: without coma Qualified Code(s): E11.10 - Type 2 diabetes mellitus with ketoacidosis without coma (2) Acute kidney failure Current Visit: Yes Status: Acute Plan: most likely prerenal. Will start aggressive fluids and monitor his creatine. His baseline is 0.6 to 1. Will consult nephrology on this patient. 08/07 creatine worsened. He has some hypernatremia as well. Agree with nephrology switching him to 1/2 N saline Qualifiers: Acute renal failure type: unspecified Qualified Code(s): N17.9 - Acute kidney failure, unspecified (3) Spina bifida Onset Date: 05/17/17 Current Visit: No Status: Chronic Plan: Patient is wheelchair bound. Will keep monitoring him. He was actually healed of his ulcer a s few weeks ago. 08/08 Will increase his lortab to 10/325 in house. He was asking for more pain meds through out the night. Mostly when he woke up. Was sleeping comfortable throught the night. Roland has a long history of confabulation. Considering his quality of life this can be somewhat understandable Qualifiers: Spinal region: lumbar Presence of hydrocephalus: without hydrocephalus Qualified Code(s): Q05.7 - Lumbar spina bifida without hydrocephalus (4) Sepsis Current Visit: Yes Status: Acute Plan: he is unfortunately allergic to the po antibiotics. will order a picc line and get him placed for meropenem and vancomycin treatment. Will need 10 days 08/11 He is allergic to all the antibiotics that will treat the strep in his blood. He is clinically stable. On meropenem for the UTI. Will give him a few days of this and then send him home if he is clinically stable Qualifiers: Sepsis type: Streptococcus, other Sepsis acute organ dysfunction status: without acute organ dysfunction Qualified Code(s): A40.8 - Other streptococcal sepsis (5) Complicated UTI (urinary tract infection) Current Visit: No Status: Acute Plan: provedencia Requires meropenem Discharge Plan: Home Plan to discharge in: 72 Hours - Code Status/Comfort Care Code Status Assessed: No Physician Review: Patient Assessed, Agree with Above Assessment and Plan Critical Care: No Time Spent Managing PTS Care (In Minutes): 20
[2022-08-11] MEDS: ENOXAPARIN 40 MG/0.4 ML SQ SCH (16:00)
[2022-08-12] MEDS: Meropenem 1,000 MG in NA CHLORIDE 0.9% 100 ML IV SCH ×3 (01:06→16:18)
[2022-08-12] MEDS: HYDROCODONE/APAP 10/325 TAB PO PRN ×2 (02:30→09:00)
[2022-08-12] MEDS: INSULIN -REGULAR HUMAN 50 UNIT/0.5 ML ML SQ SCH ×6 (07:53→22:40)
[2022-08-12] MEDS: PANTOPRAZOLE 40MG TABLET PO SCH (08:59)
[2022-08-12] MEDS: JUVEN PACKET PO SCH ×2 (09:00→20:09)
[2022-08-12] MEDS: INSULIN GLARGINE 100 UNIT/ML SQ SCH (09:01)
--- NOTE | 2022-08-12 12:01 | P.PN ---
Subjective Date of Service: 08/12/22 Primary Care Provider: Nichole Chief Complaint: DKA blood sugars elevated. Nursing took his muffins. Roland has a history of difficulty with a diabetic diet. Review of Systems 10-point ROS is otherwise unremarkable Physical Examination - Vital Signs Temperature: 97.3 F Blood Pressure: 96/57 Pulse: 91 Respirations: 18 Pulse Ox (%): 91 - Physical Exam General: Alert, In no apparent distress HEENT: Atraumatic, PERRLA, EOMI Neck: Supple, JVD not distended Respiratory: Clear to auscultation bilaterally, Normal air movement Cardiovascular: Regular rate/rhythm, Normal S1 S2 Gastrointestinal: Normal bowel sounds, No tenderness Musculoskeletal: No tenderness Integumentary: No rashes Neurological: Normal speech, Normal tone, Normal affect Lymphatics: No axilla or inguinal lymphadenopathy Assessment And Plan - Current Problems (Diagnosis) (1) DKA, type 2 Current Visit: Yes Status: Acute Plan: will admit the patient to the ICU. Start him on insulin drip. 08/09 not well controlled. Increase his insulin to 45 units. Will cover him on a sliding scale. If he improves will be able to discharge him home Qualifiers: Diabetes mellitus complication detail: without coma Qualified Code(s): E11.10 - Type 2 diabetes mellitus with ketoacidosis without coma (2) Acute kidney failure Current Visit: Yes Status: Acute Plan: most likely prerenal. Will start aggressive fluids and monitor his creatine. His baseline is 0.6 to 1. Will consult nephrology on this patient. 08/07 creatine worsened. He has some hypernatremia as well. Agree with nephrology switching him to 1/2 N saline Qualifiers: Acute renal failure type: unspecified Qualified Code(s): N17.9 - Acute kidney failure, unspecified (3) Spina bifida Onset Date: 05/17/17 Current Visit: No Status: Chronic Plan: Patient is wheelchair bound. Will keep monitoring him. He was actually healed of his ulcer a s few weeks ago. 08/08 Will increase his lortab to 10/325 in house. He was asking for more pain meds through out the night. Mostly when he woke up. Was sleeping comfortable throught the night. Roland has a long history of confabulation. Considering his quality of life this can be somewhat understandable Qualifiers: Spinal region: lumbar Presence of hydrocephalus: without hydrocephalus Q ualified Code(s): Q05.7 - Lumbar spina bifida without hydrocephalus (4) Sepsis Current Visit: Yes Status: Acute Plan: he is unfortunately allergic to the po antibiotics. will order a picc line and get him placed for meropenem and vancomycin treatment. Will need 10 days 08/11 He is allergic to all the antibiotics that will treat the strep in his blood. He is clinically stable. On meropenem for the UTI. Will give him a few days of this and then send him home if he is clinically stable Qualifiers: Sepsis type: Streptococcus, other Sepsis acute organ dysfunction status: without acute organ dysfunction Qualified Code(s): A40.8 - Other streptococcal sepsis (5) Complicated UTI (urinary tract infection) Current Visit: No Status: Acute Plan: provedencia Requires meropenem Discharge Plan: Home Plan to discharge in: 24 Hours - Code Status/Comfort Care Code Status Assessed: No Physician Review: Patient Assessed, Agree with Above Assessment and Plan Critical Care: No Time Spent Managing PTS Care (In Minutes): 20
[2022-08-12] MEDS: NA CHLORIDE 0.9% 1,000 ML IV SCH ×2 (12:16→14:00)
[2022-08-12] MEDS: HYDROMORPHONE HCL 0.5 MG/0.5 ML INJ IV PRN ×4 (12:17→23:56)
[2022-08-12] MEDS: ENOXAPARIN 40 MG/0.4 ML SQ SCH (16:18)
[2022-08-13] MEDS: Meropenem 1,000 MG in NA CHLORIDE 0.9% 100 ML IV SCH ×2 (00:36→08:17)
[2022-08-13] MEDS: HYDROMORPHONE HCL 0.5 MG/0.5 ML INJ IV PRN ×2 (03:53→08:17)
[2022-08-13] MEDS: NA CHLORIDE 0.9% 1,000 ML IV SCH (04:00)
[2022-08-13 05:21] LABS: Absolute Lymphocytes (CBC) 2.3 K/uL (0.7-4.9); Hematocrit 43.7 % (39.6-49.0); Lymphocytes % 27.9 % (15.3-44.8); MCV 86.3 fL (80-100); MPV 8.8 fL (7.6-11.3); RBC Red Blood Cell Count 5.07 M/uL (4.33-5.43)
[2022-08-13 05:24] LABS: Albumin 2.8 g/dL (3.4-5.0); Bilirubin Total 0.5 mg/dL (0.2-1.0); Protein, Total 7.2 g/dL (6.4-8.2)
[2022-08-13] MEDS: PANTOPRAZOLE 40MG TABLET PO SCH (07:30)
--- NOTE | 2022-08-13 08:07 | P.DS ---
Admission Date: 08/06/22 Discharge Date: 08/13/22 Primary Care Provider: Nichole Disposition: ROUTINE DISCHARGE Discharge Condition: GOOD Reason for Admission: DKA - Problems (1) DKA, type 2 Current Visit: Yes Status: Acute Qualifiers: Diabetes mellitus complication detail: without coma Qualified Code(s): E11.10 - Type 2 diabetes mellitus with ketoacidosis without coma (2) Acute kidney failure Current Visit: Yes Status: Acute Qualifiers: Acute renal failure type: unspecified Qualified Code(s): N17.9 - Acute kidney failure, unspecified (3) Spina bifida Onset Date: 05/17/17 Current Visit: No Status: Chronic Qualifiers: Spinal region: lumbar Presence of hydrocephalus: without hydrocephalus Qualified Code(s): Q05.7 - Lumbar spina bifida without hydrocephalus (4) Sepsis Current Visit: Yes Status: Acute Qualifiers: Sepsis type: Streptococcus, other Sepsis acute organ dysfunction status: without acute organ dysfunction Qualified Code(s): A40.8 - Other streptococcal sepsis (5) Complicated UTI (urinary tract infection) Current Visit: No Status: Acute Brief History of Present Illness: 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 he has a history of spina bifida and is wheelchair bound. the patient also is diabetic. He stopped taking his insulin 4 days ago. Started getting nausea, vomitting and diarrhea for the last 2 days. His mother usually gives the insulin. However she was going to [employer] services and not able to make it over to his house to give the insulin. He was brought to the ER. Mild gap. However his sugars were in the 1600's Hospital Course: Patient presented with DKA. He was not taking his insulin again. DKA resolved. He was transfered to the floor. Had a mdr uti. Also 2 positive blood cultures. Unfortunately he is allergic to all the antibiotics he was sensitive to. Was on meropenem for 4 days for the UTI. The patient had no clinical signs of infection. Most likely he is colonized and his immune system is taking care of the antibiotic. Will discharge him without antibiotics. He had difficult to control sugars. This was mostly due to him getting outside f ood. Will keep discussing his care and glucose control. Vital Signs/Physical Exam: Temp Pulse Resp BP Pulse Ox 97.0 F 87 18 134/75 92 08/13/22 04:00 08/13/22 04:00 08/13/22 04:23 08/13/22 04:00 08/13/22 04:23 General: Alert, In no apparent distress HEENT: Atraumatic, PERRLA, EOMI Neck: Supple, JVD not distended Respiratory: Clear to auscultation bilaterally, Normal air movement Cardiovascular: Regular rate/rhythm, Normal S1 S2 Gastrointestinal: Normal bowel sounds, No tenderness Musculoskeletal: No tenderness Integumentary: No rashes Neurological: Normal speech, Normal tone, Normal affect Lymphatics: No axilla or inguinal lymphadenopathy Laboratory Data at Discharge: WBC 8.20 K/uL (4.3-10.9) 08/13/22 04:45 Hgb 14.5 g/dL (13.6-17.9) 08/13/22 04:45 Hct 43.7 % (39.6-49.0) 08/13/22 04:45 Plt Count 261 K/uL (152-406) 08/13/22 04:45 Sodium 136 mmol/L (136-145) 08/13/22 04:45 Potassium 4.0 mmol/L (3.5-5.1) 08/13/22 04:45 BUN 20 mg/dL (7-18) H 08/13/22 04:45 Creatinine 0.80 mg/dL (0.70-1.30) 08/13/22 04:45 Glucose 371 mg/dL (74-106) H 08/13/22 04:45 Total Bilirubin 0.5 mg/dL (0.2-1.0) 08/13/22 04:45 AST 21 U/L (15-37) 08/13/22 04:45 ALT 33 U/L (16-61) 08/13/22 04:45 Alkaline Phosphatase 91 U/L (45-117) 08/13/22 04:45 Triglycerides 236 mg/dL (<150) H 08/07/22 05:05 Cholesterol 176 mg/dL (<200) 08/07/22 05:05 HDL Cholesterol 34 mg/dL (40-60) L 08/07/22 05:05 Cholesterol/HDL Ratio 5.18 08/07/22 05:05 Lipase 4394 U/L (73-393) H 08/06/22 13:56 Home Medications: Hydromorphone [Dilaudid] 4 mg PO Q8HP PRN 09/25/21 Lisinopril [Zestril] 2.5 mg PO DAILY 08/07/22 Insulin Glargine,Hum.rec.anlog [Semglee] 45 unit SQ DAILY 08/13/22 Diet: ADA Activity: Fall precautions Followup: Eren Varela MD [Primary Care Provider] - Time spent managing pt's care (in minutes): 30
[2022-08-13] MEDS: JUVEN PACKET PO SCH (08:18)
[2022-08-13] MEDS: INSULIN GLARGINE 100 UNIT/ML SQ SCH (08:18)
[2022-08-13 10:44] VITALS: O2SAT 95
[2022-08-13] MEDS: INSULIN -REGULAR HUMAN 50 UNIT/0.5 ML ML SQ SCH (11:30)
[2022-08-13 13:15] VITALS: BP 96/58; TEMP 97
== END 2022-08-13 13:30 | disposition home or self-care (01) | DRG 698 ==
LOC: ER 12:32 → ERHOLD 17:09 → 3RD-ICU 08-07 20:31 → 2ND 08-08 09:50
PROVIDERS: ADMIT Internal Medicine; ATTEND Internal Medicine
PROC: 5A09557 Assistance with Respiratory Ventilation, Greater than 96 Consecutive Hours, Continuous Positive Airway Pressure (ICD-10-PCS; principal; 2022-08-06)
PROC: 02HV33Z Insertion of Infusion Device into Superior Vena Cava, Percutaneous Approach (ICD-10-PCS; 2022-08-06)
DX: T83.592A Infection and inflammatory reaction due to indwelling ureteral stent, initial encounter (principal); A41.02 Sepsis due to Methicillin resistant Staphylococcus aureus; E11.10 Type 2 diabetes mellitus with ketoacidosis without coma; N17.9 Acute kidney failure, unspecified; E87.0 Hyperosmolality and hypernatremia; G82.20 Paraplegia, unspecified; N30.90 Cystitis, unspecified without hematuria; K21.9 Gastro-esophageal reflux disease without esophagitis; E86.0 Dehydration; I10 Essential (primary) hypertension; Q05.7 Lumbar spina bifida without hydrocephalus; E86.1 Hypovolemia; F17.200 Nicotine dependence, unspecified, uncomplicated; T38.3X6A Underdosing of insulin and oral hypoglycemic [antidiabetic] drugs, initial encounter; Z88.0 Allergy status to penicillin; Z88.1 Allergy status to other antibiotic agents; Z88.5 Allergy status to narcotic agent; Z88.8 Allergy status to other drugs, medicaments and biological substances; Z79.4 Long term (current) use of insulin; Z99.3 Dependence on wheelchair; Z91.14 Patient's other noncompliance with medication regimen; Z90.49 Acquired absence of other specified parts of digestive tract; Z91.018 Allergy to other foods; Z79.899 Other long term (current) drug therapy; Z20.822 Contact with and (suspected) exposure to COVID-19
CPT/HCPCS: 36415; 71045; 80048; 80053; 80061; 81003; 81015; 82010; 82947; 83036; 83605; 83690; 84443; 85025; 87040; 87077; 87086; 87088; 87186; 87205; 87811; 94660; 94760; 99285; J0692; J0696; J1170; J1650; J1815; J2185; J2550; J7030; J7050

== ENCOUNTER 2022-11-14 14:25 | Inpatient (IN) | payer OTHER ==
--- OUTSIDE RECORDS SUMMARY | 2022-11-14 15:31 | XMS REPORT | Continuity of Care Document ---
:1985 Author Organization [facility] t Address [address] [facility] [address] [place] [address] Support Name Relationship Address Phone LAMAR NGUYEN [address] [place] [phone] LAMAR NGUYEN [place] [address] [place] [phone] one else per patient, No Unavailable Unavailable Unavail able Karen Nguyen Unavailable [address] [phone] [place] [address] Lana Nguyen Unavailable Unavailable [phone] Opal Nguyen Jradriano Michelleo Unavailable [address] [place] [address] GastonLanLamar Mother [address] [phone] [place] [phone] PATIENT, NO ONE ELSE PER Unavailable Unavailable Unavail able PHYILLIS Grandparent Unavailable Unavailable LAMAR NGUYEN M [address] [place] [phone] Angela NguyenLamar Mother [address] [phone] [place] [phone] HOSSEIN, LISA Grandparent Unavailable KAREN NGUYEN F [address] Unavailable [place] [id number] O'GALDINO, LISA NOEMÍ Grandparent [address] Unavailable [place] [address] Noemí O'Galdino, Lisa Grandparent [address] [place] [phone] Gaston Sr., Karen Father [address] [phone] [place] [address] Care Team Providers Name Role Phone Sharpless Primary Care Physician Eren Varela Attending Clinician Unavailable ALHAJI INMAN Attending Clinician Unavailable SUZANNE BLANKENSHIP Attending Clinician Unavailable Suzanne Blankenship MD Attending Clinician Yudi Holloway MD Attending Clinician May[facility] Attending Clinician Unavailable YUDI HOLLOWAY Attending Clinician Unavailable JENNIFER OLIVERA Attending Clinician Unavailable Jennifer Olivera MD Attending Clinician Alhaji Inman MD Attending Clinician LYNETTE FONSECA Attending Clinician Unavailable Lynette Fonseca NP Attending Clinician Nurse, [facility] Surgery Gu Attending Clinician Unavailable MADONNA HELMS Attending Clinician Unavailable Madonna Preciado Attending Clinician Kamila Zepeda LVN Attending Clinician AB WOLFF Attending Clinician Unavailable AB WOLFF Attending Clinician Unavailable Diomedes Lester Attending Clinician Dontae Talley MD Attending Clinician Ann Horan Attending Clinician Mejia Villavicencio MD Attending Clinician Randall Valenzuela Attending Clinician Unavailable Gasper Hercules MD Attending Clinician [phone] JONATHAN SANFORD Attending Clinician Unavailable Jonathan Sanford DO Attending Clinician Lisbeth Carter RN Attending Clinician SUSAN ADHIKARI Attending Clinician Unavailable Susan Adhikari DO Attending Clinician COURTNEY MENDES Attending Clinician Unavailable Courtney Mendes MD Attending Clinician Doctor Unassigned, Wagon Wheel Attending Clinician Unavailable Lab, Ang - Db Attending Clinician Unavailable NEGAR GUARDADO Attending Clinician Unavailable Negar Guardado DO Attending Clinician STEPHANIE BALDERRAMA Attending Clinician Unavailable Jamal SAUSAGE MEAT TRIMMER, Stephanie Quiles Attending Clinician CARMELITA SERNA Attending Clinician Unavailable Juan Carlos NUNO, Carmelita Polo Attending Clinician KAYLEE ARGUETA Attending Clinician Unavailable Kosta NUNO, Kaylee Attending Clinician OGUNLANA, SARAH BETH A Attending Clinician Unavailable [place] DISLA, Vesta Petit Attending Clinician Unavailable Renetta NUNO, Concetta Attending Clinician Christiano DISLA, Kristie Johnson Attending Clinician VICTORINO CONROY Attending Clinician Unavailable Harry ROMO, Vic Agrawal Attending Clinician Edwardo NUNO, Royer Suárez Attending Clinician [phone] Michelle NUNO, Bret Burton Attending Clinician Mayank NUNO, Adonis G Attending Clinician Victorino Conroy MD Attending Clinician Heide Abraham MD Attending Clinician Francisco NUNO, Huy Johnson Attending Clinician Beverly PEREA, Sarah Beth A Attending Clinician [phone] KENDALL CONNOLLY Attending Clinician Unavailable Carlene Montgomery S Attending Clinician Kendall Connolly MD Attending Clinician SHAHBAZ BUENROSTRO Attending Clinician Unavailable Randall Sands MD Attending Clinician COMPA BUENROSTRO Attending Clinician Unavailable Narendra NUNO, Compa Attending Clinician Vadim Ferreira APN Attending Clinician Alex ROMO, Mario Attending Clinician KIRIT LARA Attending Clinician Unavailable Vito Mckeon MD Attending Clinician Thomas León MD Attending Clinician Tao NUNO, Daily Dailey Attending Clinician Kirit Lara MD Attending Clinician Unavailable EDILBERTO ALEXIS Attending Clinician Unavailable Edilberto Alexis Attending Clinician Danita Josemanuel KennethAdelina Attending Clinician Roger NEFF Attending Clinician Unavailable Roger Lam Attending Clinician Only, Ang Db Test Attending Clinician Unavailable Aracelis Lundberg MD Attending Clinician ARACELIS LUNDBERG Attending Clinician Unavailable DICKSON MEDRANO Attending Clinician Unavailable Zahra De Jesus Attending Clinician Ruth Quesada Attending Clinician JAQUELIN GENAO Attending Clinician Unavailable MADONNA HELMS Admitting Clinician Unavailable AB WOLFF Admitting Clinician Unavailable COURTNEY MENDES Admitting Clinician Unavailable Courtney Mendes MD Admitting Clinician NEGAR GUARDADO Admitting Clinician Unavailable Negar Guardado DO Admitting Clinician CARMELITA SERNA Admitting Clinician Unavailable KAYLEE ARGUETA Admitting Clinician Unavailable Kaylee Argueta MD Admitting Clinician BRET MARTINEZ Admitting Clinician Unavailable Bret Martinez MD Admitting Clinician KENDALL CONNOLLY Admitting Clinician Unavailable Kendall Connolly MD Admitting Clinician JONATHAN SANFORD Admitting Clinician Unavailable COMPA BUENROSTRO Admitting Clinician Unavailable Compa Buenrostro MD Admitting Clinician VITO MCKEON Admitting Clinician Unavailable Vito Mckeon MD Admitting Clinician ZAHRA WHITT Admitting Clinician Unavailable Zahra Whitt Admitting Clinician Josemanuel [place] Admitting Clinician Roger NEFF Admitting Clinician Unavailable STEPHANIE BALDERRAMA Admitting Clinician Unavailable LYNETTE FONSECA Admitting Clinician Unavailable ROBERT JOHNSON Admitting Clinician Unavailable Dalton Molina Admitting Clinician Ruth Quesada Admitting Clinician JAQUELIN GENAO Admitting Clinician Unavailable Payers Payer Name Policy Type Policy Number Effective Date Expiration Date S samir [employer] [id number] 2020 PLUS 00:00:00 [employer] [place] [id number] 2022 00:00:00 [facility] [id number] Common (Med[facility] [id number] Common (Medicaid) [facility] [employer] [id number] Common (Medicaid) [id number] Common (Medicaid) [facility] [id number] Common (Medicaid) [facility] Problems Condition Condition Condition Status Onset Resolution Last Treating Co mments Source Name Details Category Date Date Treatment Clinician Date Hyperglyce Hyperglyce Disease Active U nivers pedro due to pedro due to 2-21 it y of diabetes diabetes 00:00: [place] mellitus mellitus 00 Medica l Branch Weakness Weakness Disease Active Unive rs 2-01 ity of 00:00: [place] 00 Medical Branch Lactic Lactic Disease Active 2021-07 Univers acidosis acidosis 1-06 ity of 00:00: [place] 00 Medical Branch Nausea and Nausea and Disease Active 2021-07 U nivers vomiting, vomiting, 0-21 ity of unspecifie [place] d vomiting 00 Me dical type type Branch Chest pain Chest pain Disease Active U nivers 8-04 ity of 00:00: [place] 00 Medical Branch Foot ulcer Foot ulcer Disease Active Overview : Univers with fat with fat 8 Formattin ity of layer layer 00:00: g of this [place] exposed, exposed, 00 note Medica l left left might be Branch different from the original. Added automatic ally from request for surgery [id number] Right foot Right foot Disease Active Overview : Univers ulcer, ulcer, 02-14 Formattin ity of with fat with fat 00:00: g of this Tim as layer layer 00 note Medical exposed exposed might be Branch different from the original. Added automatic ally from request for surgery [id number] Diabetic Diabetic Disease Active Unive rs ketoacidos ketoacidos 02-06 it y of [place] without [place] coma coma 00 Medical associated associated Br anch with type with type 1 diabetes 1 diabetes mellitus mellitus Abdominal Abdominal Disease Active Uni vers pain, pain, 624 ity of unspecifie unspecifie [place] d 00 Medical abdominal abdominal Bran ch location location Hyperglyce Hyperglyce Disease Active U braulio pedro pedro 12-19 ity of 00:00: Medical Branch Decubitus Decubitus Disease Active Uni vers ulcer of ulcer of 6-05 ity of heel, heel, 00:00: [place] left, left, 00 Medical unstageabl unstageabl Br anch e e Decubitus Decubitus Disease Active Uni vers ulcer of ulcer of 6-05 ity of heel, heel, 00:00: [place] left, left, 00 Medical unstageabl unstageabl Br anch e e Diabetic Diabetic Disease Active Unive rs ketoacidos ketoacidos 6-05 it y of is without is without [place] coma 00 Medical associated associated Br anch with type with type 2 diabetes 2 diabetes mellitus mellitus Decubitus Decubitus Disease Active Uni vers ulcer of ulcer of 6-05 ity of heel, heel, 00:00: [place] left, left, 00 Medical unstageabl unstageabl Br anch e e Pyuria Pyuria Disease Active Univers 6-05 ity of 00:00: [place] 00 Medical Branch Chronic Chronic Disease Active Univers suprapubic suprapubic 6- it y of catheter catheter 00:00: Medical Branch Uncontroll Uncontroll Disease Active U braulio ed ed 6 ity of diabetes diabetes 00:00: [place] mellitus mellitus 00 Medica l with with Branch complicati complicati ons ons Spina Spina Disease Recurre Univers bifida bifida nce 6-03 ity of 00:00: [place] [address] Medical Branch Wound Wound Disease Active Univers infection infection 5-11 ity of 00:00: [place] [address] Medical Branch Chills Chills Disease Active Univers 5-11 ity of 00:00: [place] [address] Medical Branch POSSIBLE POSSIBLE Diagnosis Active 2021-11-01 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 10-20 21:48:00 l MALFUNCTIO MALFUNCTIO 00:00: He samanthaann N N Active 00 10/20/2021 [facility] 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 Diagnosis Active 2021-10-11 Memoria MALFUNCTIO MALFUNCTIO 10-06 14:12:00 l N N Active 00:00: Jason 10/06/2021 [facility] 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 Diagnosis Active 2021-10-05 Memoria MALFUCTION MALFUCTION 10-05 23:59:00 l Active 00:00: Jason 10/05/2021 00 [facility] Complicate Complicate Disease Active U nivers d urinary d urinary 1-20 ity of tract tract 00:00: [place] infection infection 00 [facility] Branch Hyperglyce Hyperglyce Disease Active [facility] ped[facility] pedro 1-07 [facility] without without 00:00: Medical ketosis ketosis 00 Center HEADACHE HEADACHE Diagnosis Active 2017-072018-05-27 Memoria Active 07-22 22:05:00 l 05/22/2018 00:00: [facility] [address] SHUNT SHUNT Diagnosis Active 2017-11-14 Mem oria MALFUNCTIO MALFUNCTIO 11-14 20:00:00 l N N Active 00:00: Jason 11/14/2017 00 [facility] ACUTE ACUTE Diagnosis Active 2017-11-20 Me moria HEADACHE HEADACHE 11-14 09:20:00 l Active 00:00: Jason 11/14/2017 [facility] Spina Spina Disease Recurre [facility] bifida nce [facility] 00:[facility]: Medical 00 Center Pyelonephr Pyelonephr Disease Active [facility] itis itis 6 [facility] 00:[facility]: Medical [facility] Center Morbid Morbid Disease Active Univers obesity obesity 104 ity of with body with body 00:00: [place] s mass index mass index 00 Me dical of of Branch 40.0-49.9 40.0-49.9 Lumbar Problem Active Common spina Spirit bifida - [facility] with [facility] Dependence Problem Active Commo n on Spirit wheelchair [facility] Paraplegia Problem Active Commo n [facility] Constipati Problem Active Commo n on Spirit [facility] Incontinen Problem Active Commo n ce of Spirit urine [facility] Nausea Problem Active [facility] Mixed Problem Active Common anxiety [facility] depressive [facility] [id number] Problem Active Common [facility] Bowel Problem Active Common incontinen Spirit ce [facility] [id number] Problem Active Common [facility] [id number] Problem Active Common [facility] [id number] Problem Active Common [facility] [id number] Problem Active Commo n [id number] [facility] Foot ulcer Problem Active Commo n [facility] Myelocele Problem Active Common with Spirit [facility] [id number] Problem Active Common [facility] [id number] Problem Active Common [facility] Nicotine Problem Active Common dependence [facility] [id number] Problem Active Common [facility] [id number] Problem Active Common [facility] [id number] Problem Active Common [facility] [id number] Problem Active Common [facility] Spina Spina Problem 2018-12-09 Memor ia bifida, bifida, 14:14:02 l unspecifie unspecifie Vero snell 12/09/2018 [facility] Nausea Nausea Problem 2018-12-09 Mem oria with with 14:14:02 l vomiting, vomiting, Herm philip unspecifie unspecifie d d 12/09/2018 [facility] Diplopia Diplopia Problem 2018-12-09 Memoria 12/09/2018 14:14:02 l [place] Cerebral Cerebral Problem 2018-12-09 Memoria palsy, palsy, 14:14:02 l unspecifie unspecifie He rmann d d 12/09/2018 [facility] Acquired 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-09 Memoria absence of absence of 14:14:02 l other other Wilder specified specified parts of parts of digestive digestive tract tract 12/09/2018 [facility] Nicotine Nicotine Problem 2018-12-09 Memoria dependence dependence 14:14:02 l , , Jason cigarettes cigarettes , , uncomplica uncomplica lester lester 12/09/2018 [facility] Presence Presence Problem 2018-12-09 Memoria of of 14:14:02 l cerebrospi cerebrospi He rmann nal fluid nal fluid drainage drainage device device 12/09/2018 [facility] Allergy Allergy Problem 2018-12-09 Me moria status to status to 14:14:02 l other other [place] antibiotic antibiotic agents agents status status 12/09/2018 [facility] Allergy Allergy Problem 2018-12-09 Me moria status to status to 14:14:02 l other other Jason drugs, drugs, medicament medicament s and s and biological biological substances substances status status 12/09/2018 [facility] Allergy Allergy Problem 2018-12-09 Me moria status to status to 14:14:02 l narcotic narcotic Christian n agent agent status status 12/09/2018 [facility] Asthma Asthma Problem Resolve 2021-10-27 Mem oria (disorder) (disorder) d 23:48:47 l Resolved Wilder Problem 10/27/2021 [facility] Bronchitis Bronchiti Problem Resolve 2021-10-27 Memoria (disorder) s d 23:48:47 l (disorder) Christian n Resolved Problem 10/27/2021 [facility] 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-27 Memoria palsy palsy d 23:48:47 l (disorder) (disorder) He rmann Resolved Problem 10/27/2021 [facility] Hydrocepha Hydroceph Problem Resolve 2021-10-27 Memoria bam alus d 23:48:47 l (disorder) (disorder) He rmann Resolved Problem 10/27/2021 [facility] Osteomyeli Osteomyel Problem Resolve 2021-10-27 Memoria tis itis d 23:48:47 l (disorder) (disorder) He rmann Resolved Problem 10/27/2021 [facility] Acute pain Acute Problem Active 2021-10-27 M emoria (finding) pain 23:48:47 l (finding) Wilder Active Problem 10/27/2021 [facility] Morbid Morbid Problem Active 2021-10-27 Erwin benjamin obesity obesity 23:48:47 l (disorder) (disorder) He rmann Active Problem 10/27/2021 [facility] Providenci Providenc Problem Active 2021-10-27 Memoria a ia 23:48:47 l (organism) (organism) He [place] Active Problem 10/27/2021 Problem added by Discern Expert. [facility] History of Past Illness Condition Condition Condition Status Onset Resolution Last Treating Co mments Source Name Details Category Date Date Treatment Clinician Date Headache Headache Problem 2017-072018-12-09 2018-12-09 Memoria 05/22/2018- 14:14:02 14:14:02 l 12/09/2018 06:00: [facility] [address] Allergies, Adverse Reactions, Alerts Allergy Allergy Status Severity Reaction(s) Onset Inactive Treating Comm ents Source Name Type Date Date Clinician Amoxicil Propensi Active Hives Univ s jocelyn ty to 7-27 ity of adverse 00:00: [place] reaction 00 [facility] Branch AMOXICIL DRUG Active Hives Univers JOCELYN INGREDI 7-27 ity of 00:00: [place] 00 Medical Branch Metoclop Propensi Active Nausea 2016-07 Univ s ramide ty to and/or 2-20 ity of Hcl adverse Vomiting 00:00: [place] reaction 00 [facility] Branch METOCLOP DRUG Active N/V 2016-07 Univers RAMIDE INGREDI 2-20 ity of HCL 00:00: [place] 00 Medical Branch Sulfamet Propensi Active Hives [facility] hoxazole ty to 6-11 [facility] adverse 00:00: Medical oprim reaction 00 Center s Levoflox Propensi Active Hives 2017-[address] acin ty to 611 [facility] adverse 00:00: Medical reaction 00 Center s Morphine Propensi Active Hives 2017-[address] ty to 6-11 [facility] adverse 00:00: Medical reaction 00 Center s Sesame Propensi Active Hives 2017-[address] Seed ty to 6-11 [facility] adverse 00:00: Medical reaction 00 Center s Ketorola Propensi Active Rash 2017-[address] c ty to 6 [facility] adverse 00:00: Medical reaction 00 Center s Vancomyc Propensi Active Rash 2017-[address] in ty to [facility] Analogue adverse 00:00: Medical s reaction 00 Center s Ondanset Propensi Active Nausea And 2017-[address] kumar Hcl ty to Vomiting 12-23 [facility] (Pf) adverse 00:00: Medical reaction 00 [...] 6-11 [facility] (PF) 00:00: Medical 00 Center SESAME DRUG Active Hives 2017-0 Univers SEED INGREDI 6-11 ity of 00:00: [place] 00 Medical Branch Sulfa Propensi Active Other - See 2017- Uni vers (Sulfona ty to comments 07-18 ity of mide adverse 00:00: [place] Antibiot reaction 00 Medica l ics) s Branch Sulfamet Propensi Active Other - See 2017-0 U nivers hoprim ty to comments 1-04 ity of Ds adverse 00:00: [place] reaction 00 Medical s Branch Vancomyc Propensi Active Other - See 2017-0 U nivers in ty to comments 07-18 ity of adverse 00:00: [place] reaction 00 Medical s Branch Sulfa Propensi Active Other - See Uni vers (Sulfona ty to comments 07-18 ity of mide adverse 00:00: [place] Antibiot reaction 00 Medica l ics) s Branch SULFA Drug Active Other-Cmnt Univer s (SULFONA Class 1- ity of MIDE 00:00: [place] ANTIBIOT 00 [...] Univer s kumar Hcl ty to and/or 7 ity of (Pf) adverse Vomiting 00:00: [place] [...] Branch MORPHINE DRUG Active Hives Univers INGREDI 5-23 ity of 00:00: [place] 00 Medical Branch KETOROLA DRUG Active N/V 0 Univers C INGREDI 5-23 ity of TROMETHA 00:00: [place] MINE 00 Medical Branch morphine Drug Active Common allergy [facility] ondanset Drug Active Common kumar allergy [facility] [id number] Drug Active Common allergy [facility] amoxicil amoxicil Active Memori a jocelyn jocelyn l [place] morphine morphine Active Memori a l [place] Toradol Toradol Active Memoria l Jason Minocin Minocin Active Memoria l [place] Zofran Zofran Active Memoria l Jason Levaquin Levaquin Active Memori a l Jason Bactrim Bactrim Active Memoria l Wilder Reglan Reglan Active Memoria l Jason Family History Family Member Diagnosis Comments Start Date Stop Date Source Natural father Diabetes [facility] Natural mother No Significant Univer sit of [place] Medical Problems Medical Branch Social History Social Habit Start Date Stop Date Quantity Comments Source History of tobacco Cigarette Smoker [facility] Medical Branch History SDOH Social Unive rsity of Connections [facility] Med ical Together Branch History SDOH Social Unive rsity of Connections [facility] Medical Branch History SDOH Social Unive rsity of Connections [place] Medical Membership Branch History SDOH Social Unive rsity of Connections [place] Medical Meetings Branch Exposure to 2022-10-30 2022-11-09 Not sure University of SARS-CoV-2 (event) 00:00:00 14:24:00 [facility] Branch Alcohol intake 2022-11-09 2022-11-09 Current drinker Unive rsity of 00:00:00 00:00:00 of alcohol [place] Medical (finding) Branch History SDOH 2022-09-04 2022-09-04 1 University o f Alcohol Frequency 00:00:00 00:00:00 [place] M edical Branch History SDOH 2022-09-04 2022-09-04 0 University o f Alcohol Std Drinks 00:00:00 00:00:00 [place] [facility] Branch History SDOH 2022-09-04 2022-09-04 1 University o f Alcohol Binge 00:00:00 00:00:00 [place] Medic al Branch History SDOH Social 2022-09-04 2022-09-04 4 Unive rsity of Connections Phone 00:00:00 00:00:00 [place] M edical Branch History SDOH Social 2022-09-04 2022-09-04 7 Unive rsity of Connections Living 00:00:00 00:00:00 [place] [facility] Branch History SDOH 2022-09-04 2022-09-04 0 University o f Physical Activity 00:00:00 00:00:00 [place] M edical DPW Branch History SDOH 2022-09-04 2022-09-04 0 University o f Physical Activity 00:00:00 00:00:00 [place] M edical MPS Branch History SDOH 2022-09-04 2022-09-04 5 University o f Financial 00:00:00 00:00:00 [place] [facility] Branch History SDOH Food 2022-09-04 2022-09-04 1 Univers ity of Scarcity 00:00:00 00:00:00 [place] [facility] Branch History SDMO 2022-09-04 2022-09-04 2 University o f Transport Med 00:00:00 00:00:00 [place] Medic al Branch History SDOH 2022-09-04 2022-09-04 2 University o f Transport Non-Med 00:00:00 00:00:00 [facility] edical Branch History SDOH Food 2022-08-16 2022-08-16 1 Univers ity of Worry 00:00:00 00:00:00 [facility] Branch Education 2022-05-20 2022-05-20 21 University of 00:00:00 00:00:00 [facility] Tobacco use and 2022-05-04 2022-05-04 Smokeless Universit y of exposure 00:00:00 00:00:00 tobacco non-user [facility] dical Branch Alcohol Comment 2022-02-15 2022-02-15 once a year Universi ty of 00:00:00 00:00:00 [facility] Social History 2021-10-06 2021-10-06 [facility] kristie 05:57:00 05:57:00 Cigarettes smoked 2016-12-23 2016-12-23 DEDE Guzman current (pack per 00:00:00 00:00:00 Medical Center day) - Reported Sex Assigned At [address] [facility] kes 00:00:00 00:00:00 Medical Center Smoking Status Start Date Stop Date Source Social History 2018-05-22 11:26:10 [facility] Medications Ordered Filled Start Stop Current Ordering Indication Dosage Frequency Signature Comments Components Source Medication Medication Date Date Medication? Clinician (SIG) Name Name FENTanyl PF 2022- No 12.5ug 12.5 mcg, Univers (SUBLIMAZE 11-09 Slow IV ity o f (PF)) 23:15: 23:38 Push, [place] injection 00 :00 ONCE, 1 Medical 12.5 mcg dose, On Branch Sat11/09/22 at 1815, STAT NaCl 0.9% 2022- No 1000mL at 999 Uni vers (NS) bolus 11-09 mL/hr, ity of infusion 21:00: 23:29 1,000 mL, Tim as 1,000 mL 00 :00 IV Medical Infusion, Branch ONCE, 1 dose, On Sat11/09/22 at 1600, SAHARA FENTanyl PF 2022- No 25ug 25 mcg, Un ela (SUBLIMAZE 11-09 Slow IV ity o f (PF)) 20:15: 20:34 Push, [place] injection 00 :00 ONCE, 1 Medical 25 mcg dose, On Branch 11/09/22 at 1515, STAT blood sugar Yes Use as Univ ers diagnostic -25 directed ity o f (ONETOUCH 00:00: [place] VERIO TEST 00 Medical STRIPS) Branch strip insulin Yes 60U inject 60 Unive rs lispro, 4-25 Units ity of human, 00:00: under the [place] (HUMALOG 00 skin in Medical U-100 the Branch INSULIN) morning 100 unit/mL and 60 injection Units in the evening. inject with meals. blood sugar Yes Use as Univ ers diagnostic 4-25 directed ity o f (ONETOUCH 00:00: [place] VERIO TEST 00 Medical STRIPS) Branch strip insulin Yes 60U inject 60 Unive rs lispro, 4-25 Units ity of human, 00:00: under the [place] (HUMALOG 00 skin in Medical U-100 the Branch INSULIN) morning 100 unit/mL and 60 injection Units in the evening. inject with meals. blood sugar Yes Use as Univ ers diagnostic 4-25 directed ity o f (ONETOUCH 00:00: [place] VERIO TEST 00 Medical STRIPS) Branch strip insulin Yes 60U inject 60 Unive rs lispro, 4-25 Units ity of human, 00:00: under the [place] (HUMALOG 00 skin in Medical U-100 the Branch INSULIN) morning 100 unit/mL and 60 injection Units in the evening. inject with meals. blood sugar Yes Use as Univ ers diagnostic 4-25 directed ity o f (ONETOUCH 00:00: [place] VERIO TEST 00 Medical STRIPS) Branch strip insulin Yes 60U inject 60 Unive rs lispro, 4-25 Units ity of human, 00:00: under the [place] (HUMALOG 00 skin in Medical U-100 the Branch INSULIN) morning 100 unit/mL and 60 injection Units in the evening. inject with meals. blood sugar Yes Use as Univ ers diagnostic 4-25 directed ity o f (ONETOUCH 00:00: [place] VERIO TEST 00 Medical STRIPS) Branch strip insulin Yes 60U inject 60 Unive rs lispro, 4-25 Units ity of human, 00:00: under the [place] (HUMALOG 00 skin in Medical U-100 the Branch INSULIN) morning 100 unit/mL and 60 injection Units in the evening. inject with meals. semaglutide 2022- Yes inject Uni vers (OZEMPIC) 11-06- 0.25 mg ity of 0.25 mg or 00:00: 04:59 under the [place] 0.5 mg (2 00 :00 skin Medical mg/3 mL) weekly for Branc h PnIj 28 days, THEN 0.5 mg weekly for 56 days. semaglutide 2022- Yes inject Uni vers (OZEMPIC) 11-06- 0.25 mg ity of 0.25 mg or 00:00: 04:59 under the [place] 0.5 mg (2 00 :00 skin Medical mg/3 mL) weekly for Branc h PnIj 28 days, THEN 0.5 mg weekly for 56 days. semaglutide 2022- Yes inject Uni vers (OZEMPIC) 11-06- 0.25 mg ity of 0.25 mg or 00:00: 04:59 under the [place] 0.5 mg (2 00 :00 skin Medical mg/3 mL) weekly for Branc h PnIj 28 days, THEN 0.5 mg weekly for 56 days. semaglutide 2022- Yes inject Uni vers (OZEMPIC) 11-06-19 0.25 mg ity of 0.25 mg or 00:00: 04:59 under the [place] 0.5 mg (2 00 :00 skin Medical mg/3 mL) weekly for Branc h PnIj 28 days, THEN 0.5 mg weekly for 56 days. semaglutide 2022- Yes inject Uni vers (OZEMPIC) 11-06- 0.25 mg ity of 0.25 mg or 00:00: 04:59 under the [place] 0.5 mg (2 00 :00 skin Medical mg/3 mL) weekly for Branc h PnIj 28 days, THEN 0.5 mg weekly for 56 days. insulin NPH 2022- No 45U inject 45 Univers human 4-20 04-20 Units ity of isophane 20:12: 00:00 under the [place] (NOVOLIN N 01 :00 skin 2 Medical SC) (two) Branch times daily. insulin NPH Yes [id number] 60U inject 60 Univers 100 unit/mL 4-20 Units ity of injection 00:00: under the [place] 00 skin every Medical morning Branch and evening. insulin NPH 0 Yes [id number] 60U inject 60 Univers 100 unit/mL 4-20 Units ity of injection 00:00: under the [place] 00 skin every Medical morning Branch and evening. insulin NPH 2022-0 Yes [id number] 60U inject 60 Univers 100 unit/mL 4-20 Units ity of injection 00:00: under the [place] 00 skin every Medical morning Branch and evening. insulin NPH 0 Yes [id number] 60U inject 60 Univers 100 unit/mL 4-20 Units ity of injection 00:00: under the [place] 00 skin every Medical morning Branch and evening. insulin NPH 2022-0 Yes [id number] 60U inject 60 Univers 100 unit/mL 4-20 Units ity of injection 00:00: under the [place] 00 skin every Medical morning Branch and evening. insulin NPH 2022-0 Yes [id number] 60U inject 60 Univers 100 unit/mL 4-20 Units ity of injection 00:00: under the [place] 00 skin every Medical morning Branch and evening. insulin NPH Yes [id number] 60U inject 60 Univers 100 unit/mL 4-20 Units ity of injection 00:00: under the [place] 00 skin every Medical morning Branch and evening. cephALEXin 2022- No 500mg 500 mg, Un ela (KEFLEX) 10-31 Oral, ity of capsule 500 23:45: 23:53 ONCE, 1 [place] mg 00 :00 dose, On Medical Wed Branch 10/31/22 at 1845, SAHARA
Re ason for Anti-Infec tive: Documented Infection< br>Documen lester Infection Site: Urine
D uration of Therapy: Other (see Comments) insulin 2022- No 6U 6 Units, Unive rs regular 10-31 Slow IV ity of human 23:15: 22:41 Push, [place] (HUMULIN R) 00 :00 ONCE, 1 Medic al injection 6 dose, On Bran ch Units [facility] 10/31/22 at 1815, STAT
In dication for insulin: Hyperglyce pedro NaCl 0.9% 2022- No 1000mL at 999 Uni vers (NS) bolus 10-31 mL/hr, ity of infusion 22:30: 23:56 1,000 mL, [place] 1,000 mL 00 :00 IV Medical Infusion, Branch ONCE, 1 dose, On Sat10/31/22 at 1730, STAT acetaminoph 2022- No 1000mg 1,000 mg, Univers en 10-31 Oral, ity of (TYLENOL) 21:45: 21:38 ONCE, 1 [place] tablet 00 :00 dose, On Medical 1,000 mg Wed Branch 10/31/22 at 1645, SAHARA NaCl 0.9% 2022- No 1000mL at 999 Uni vers (NS) bolus 10-31 mL/hr, ity of infusion 21:45: 23:56 1,000 mL, [place] 1,000 mL 00 :00 IV Medical Infusion, Branch ONCE, 1 dose, On Sat10/31/22 at 1645, STAT cephALEXin Yes [id number] 500mg Take 1 Univers (KEFLEX) 4-19 capsule by ity o f 500 mg 00:00: mouth 4 [place] capsule 00 (four) Medical times Branch daily. cephALEXin 2023-0 Yes [id number] 500mg Take 1 Univers (KEFLEX) 4-19 capsule by ity o f 500 mg 00:00: mouth 4 [place] capsule 00 (four) Medical times Branch daily. cephALEXin 2023-0 Yes [id number] 500mg Take 1 Univers (KEFLEX) 4-19 capsule by ity o f 500 mg 00:00: mouth 4 [place] capsule 00 (four) Medical times Branch daily. cephALEXin 2023-0 Yes [id number] 500mg Take 1 Univers (KEFLEX) 4-19 capsule by ity o f 500 mg 00:00: mouth 4 [place] capsule 00 (four) Medical times Branch daily. cephALEXin 2023-0 Yes [id number] 500mg Take 1 Univers (KEFLEX) 4-19 capsule by ity o f 500 mg 00:00: mouth 4 [place] capsule 00 (four) Medical times Branch daily. cephALEXin 2023-0 Yes [id number] 500mg Take 1 Univers (KEFLEX) 4-19 capsule by ity o f 500 mg 00:00: mouth 4 [place] capsule 00 (four) Medical times Branch daily. cephALEXin 2023-0 Yes [id number] 500mg Take 1 Univers (KEFLEX) 4-19 capsule by ity o f 500 mg 00:00: mouth 4 [place] capsule 00 (four) Medical times Branch daily. cephALEXin 2023-0 Yes [id number] 500mg Take 1 Univers (KEFLEX) 4-19 capsule by ity o f 500 mg 00:00: mouth 4 [place] capsule 00 (four) Medical times Branch daily. cefpodoxime 2022-0 Yes 200mg Take 1 Uni vers 200 mg 4-16 tablet by ity of tablet 00:00: mouth in [place] 00 the Medical morning Branch and 1 tablet in the evening. FENTanyl PF 2022-2022- No 50ug 50 mcg, Un ela (SUBLIMAZE 10-22 Slow IV ity o f (PF)) 02:15: 02:39 Push, [place] injection 00 :00 ONCE, 1 Medical 50 mcg dose, On Branch 10/21/22 at 2115, Routine insulin 2022-0 2022- No 14U 14 Units, Univ ers regular 4-10 04-10 Subcutaneo ity o f human 01:30: 00:59 us, ONCE, [place] (HUMULIN R) 00 :00 1 dose, On Me dical injection 10/21/22 Bran ch 14 Units at 2030, Routine
Indicatio n for insulin: Hyperglyce pedro cefTRIAXone 2022- No 1000mg 1,000 mg, Univers (ROCEPHIN) 10-22-10 IV ity of 1,000 mg in 01:00: 01:31 Piggyback, [place] NaCl 0.9% 00 :00 ONCE, 1 Medical (NS) 100 mL dose, On Bran ch MINI-BAG 10/21/22 at 2000, Administer over 30 Minutes, 100 mL
Reas on for Anti-Infec tive: Documented Infection< br>Documen lester Infection Site: Urine<br&g t;Duration of Therapy: 7 days NaCl 0.9% 2022- No 500mL at 999 [facility] ers (NS) bolus 10-22 04-10 mL/hr, 500 it y of infusion 01:00: 02:45 mL, IV [place] 500 mL 00 :00 Infusion, Medical ONCE, 1 Branch dose, On 10/21/22 at 2000, STAT NaCl 0.9% 2022- No 1000mL at 999 Uni vers (NS) bolus 10-21 04-10 mL/hr, ity of infusion 23:15: 03:46 1,000 mL, [place] 1,000 mL 00 :00 IV Medical Infusion, Branch ONCE, 1 dose, On 10/21/22 at 1815, SAHARA FENTanyl PF 2022- No 50ug 50 mcg, Un ela (SUBLIMAZE 10-21- Slow IV ity o f (PF)) 23:15: 23:11 Push, [place] injection 00 :00 ONCE, 1 Medical 50 mcg dose, On Branch Momence 10/21/22 at 1815, Routine insulin NPH Yes 45U inject 45 U nivers human 4-09 Units ity of isophane 21:52: under the [place] (NOVOLIN N 29 skin 2 Medical SC) (two) Branch times daily. insulin NPH Yes 45U inject 45 U nivers human 4-09 Units ity of isophane 21:52: under the [place] (NOVOLIN N 29 skin 2 Medical SC) (two) Branch times daily. insulin NPH 2023-0 Yes 45U inject 45 U nivers human 4-09 Units ity of isophane 21:52: under the [place] (NOVOLIN N 29 skin 2 Medical SC) (two) Branch times daily. insulin NPH 2023-0 Yes 45U inject 45 U nivers human 4-09 Units ity of isophane 21:52: under the [place] (NOVOLIN N 29 skin 2 Medical SC) (two) Branch times daily. insulin NPH 2023-0 Yes 45U inject 45 U nivers human 4-09 Units ity of isophane 21:52: under the [place] (NOVOLIN N 29 skin 2 Medical SC) (two) Branch times daily. insulin NPH 2023-0 Yes 45U inject 45 U nivers human 4-09 Units ity of isophane 21:52: under the [place] (NOVOLIN N 29 skin 2 Medical SC) (two) Branch times daily. insulin NPH 2023-0 Yes 45U inject 45 U nivers human 4-09 Units ity of isophane 21:52: under the [place] (NOVOLIN N 29 skin 2 Medical SC) (two) Branch times daily. insulin NPH 2023-0 Yes 45U inject 45 U nivers human 4-09 Units ity of isophane 21:52: under the [place] (NOVOLIN N 29 skin 2 Medical SC) (two) Branch times daily. insulin NPH 2023-0 Yes 45U inject 45 U nivers human 4-09 Units ity of isophane 21:52: under the [place] (NOVOLIN N 29 skin 2 Medical SC) (two) Branch times daily. insulin NPH 2023-0 Yes [id number] 45U inject 45 Univers 100 unit/mL 4-09 Units ity of injection 00:00: under the [place] 00 skin every Medical morning Branch and evening. insulin NPH 2023-0 Yes [id number] 45U inject 45 Univers 100 unit/mL 4-09 Units ity of injection 00:00: under the [place] 00 skin every Medical morning Branch and evening. insulin NPH 2023-0 Yes [id number] 45U inject 45 Univers 100 unit/mL 4-09 Units ity of injection 00:00: under the [place] 00 skin every Medical morning Branch and evening. insulin NPH 2022-0 Yes [id number] 45U inject 45 Univers 100 unit/mL 4-09 Units ity of injection 00:00: under the [place] 00 skin every Medical morning Branch and evening. insulin NPH 2022-0 Yes [id number] 45U inject 45 Univers 100 unit/mL 4-09 Units ity of injection 00:00: under the [place] 00 skin every Medical morning Branch and evening. insulin NPH 2022-0 Yes [id number] 45U inject 45 Univers 100 unit/mL 4-09 Units ity of injection 00:00: under the [place] 00 skin every Medical morning Branch and evening. insulin NPH 2022-0 Yes [id number] 45U inject 45 Univers 100 unit/mL 4-09 Units ity of injection 00:00: under the [place] 00 skin every Medical morning Branch and evening. insulin NPH 2022-0 Yes [id number] 45U inject 45 Univers 100 unit/mL 4-09 Units ity of injection 00:00: under the [place] 00 skin every Medical morning Branch and evening. insulin NPH 0 Yes [id number] 45U inject 45 Univers 100 unit/mL 4-09 Units ity of injection 00:00: under the [place] 00 skin every Medical morning Branch and evening. insulin NPH 2022- No [id number] 45U inject 45 Univers 100 unit/mL 4 04-20 Units ity of injection 00:00: 00:00 under the [place] 00 :00 skin every Medical morning Branch and evening. cefpodoxime 2022- Yes [id number] 200mg Take 1 Univers 200 mg 10-21 tablet by ity of tablet 00:00: 04:59 mouth in [place] 00 :00 the Medical morning Branch and 1 tablet in the evening. Do all this for 7 days. cefpodoxime 2022- Yes [id number] 200mg Take 1 Univers 200 mg 10-21 tablet by ity of tablet 00:00: 04:59 mouth in [place] 00 :00 the Medical morning Branch and 1 tablet in the evening. Do all this for 7 days. cefTRIAXone 2022-2022- No 1000mg 1,000 mg, Univers (ROCEPHIN) 3-25 03-25 IV ity of 1,000 mg in 00:00: 00:31 [place], [place] NaCl 0.9% 00 :00 ONCE, 1 Medical (NS) 100 mL dose, On Bran ch MINI-BAG 10/05/22 at 1900, Administer over 30 Minutes, 100 mL
Reas on for Anti-Infec tive: Documented Infection< br>Documen lester Infection Site: Urine<br&g t;Duration of Therapy: 7 days NaCl 0.9% 2022- No 1000mL at 999 Uni vers (NS) bolus 10-05 mL/hr, ity of infusion 23:45: 01:32 1,000 mL, [place] 1,000 mL 00 :00 IV Medical Piggyback, Branch ONCE, 1 dose, On Sat10/05/22 at 1845, STAT insulin 2022- No 10U 10 Units, Univ ers regular 10-05 Subcutaneo ity o f human 23:45: 23:08 , ONCE, [place] (HUMULIN R) 00 :00 1 dose, On Me dical injection Fri Branch 10 Units 10/05/22 at 1845, Routine
Indicatio n for insulin: Hyperglyce pedro iopamidol 2022- No [id number] 100mL 100 mL, Univers (ISOVUE 10-05 Intravenou ity o f 370-500 mL) 23:15: 22:22 s, ONCE, 1 [place] injection 00 :00 dose, On Medica l 100 mL Fri Branch 10/05/22 at 1815, Routine FENTanyl PF 2022- No 50ug 50 mcg, Un ela (SUBLIMAZE 10-05 Slow IV ity o f (PF)) 22:15: 21:42 Push, [place] injection 00 :00 ONCE, 1 Medical 50 mcg dose, On Branch Sat10/05/22 at 1715, Routine NaCl 0.9% 2022- No 1000mL at 999 Uni vers (NS) bolus 10-05 mL/hr, ity of infusion 22:00: 01:32 1,000 mL, [place] 1,000 mL 00 :00 IV Medical Infusion, Branch ONCE, 1 dose, On Sat10/05/22 at 1700, SAHARA proMETHazin 2022- No 25mg 25 mg, IV Univers e 10-05-24 Piggyback, ity of (PHENERGAN) 21:15: 21:46 ONCE, 1 [place] 25 mg in 00 :00 dose, On Medical NaCl 0.9% Fri Branch (NS) 50 mL 10/05/22 at IV 1615, SAHARA piggyback cefdinir 2022-0 2022- Yes [id number] 300mg Take 1 Univers 300 mg 10-05-08 capsule by ity of capsule 00:00: 04:59 mouth [place] 00 :00 every 12 Medical (twelve) Branch hours for 14 days. cefdinir 2022-0 2022- Yes [id number] 300mg Take 1 Univers 300 mg 10-05-08 capsule by ity of capsule 00:00: 04:59 mouth [place] 00 :00 every 12 Medical (twelve) Branch hours for 14 days. cefdinir 2022-0 2022- Yes [id number] 300mg Take 1 Univers 300 mg 10-05-08 capsule by ity of capsule 00:00: 04:59 mouth [place] 00 :00 every 12 Medical (twelve) Branch hours for 14 days. sodium 0 Yes Topical, Univers hypochlorit 2-23 TID, First it y of e 0.25% 20:00: dose on [place] (DAKIN'S 00 [facility] Medical SOLUTION) 09/06/22 at Bran ch solution 1400, Until Discontinu ed, Routine sodium 0 Yes Topical, Univers hypochlorit 2-23 TID, First it y of e 0.25% 20:00: dose on [place] (DAKIN'S 00 [facility] Medical SOLUTION) 09/06/22 at Bran ch solution 1400, Until Discontinu ed, Routine HYDROmorpho 0 Yes 4mg Take 4 mg U nivers ne 4 mg 2-23 by mouth ity of tablet 14:27: in the [place] 27 morning Medical and 4 mg Branch at noon and 4 mg in the evening. insulin NPH 0 Yes 45U inject 45 U nivers human 2-23 Units ity of isophane 14:27: under the [place] (NOVOLIN N 27 skin 2 Medical SC) (two) Branch times daily. HYDROmorpho 2022-0 Yes 4mg Take 4 mg U nivers ne 4 mg 2-23 by mouth ity of tablet 14:27: in the [place] [address] morning Medical and 4 mg Branch at noon and 4 mg in the evening. insulin NPH 2023-0 Yes 45U inject 45 U nivers human 2-23 Units ity of isophane 14:27: under the [place] (NOVOLIN N 27 skin 2 Medical SC) (two) Branch times daily. HYDROmorpho 2023-0 Yes 4mg Take 4 mg U nivers ne 4 mg 2-23 by mouth ity of tablet 14:27: in the [place] [address] morning Medical and 4 mg Branch at noon and 4 mg in the evening. insulin NPH 2023-0 Yes 45U inject 45 U nivers human 2-23 Units ity of isophane 14:27: under the [place] (NOVOLIN N 27 skin 2 Medical SC) (two) Branch times daily. HYDROmorpho 2023-0 Yes 4mg Take 4 mg U nivers ne 4 mg 2-23 by mouth ity of tablet 14:27: in the [place] [address] morning Medical and 4 mg Branch at noon and 4 mg in the evening. insulin NPH 2023-0 Yes 45U inject 45 U nivers human 2-23 Units ity of isophane 14:27: under the [place] (NOVOLIN N 27 skin 2 Medical SC) (two) Branch times daily. HYDROmorpho 2023-0 Yes 4mg Take 4 mg U nivers ne 4 mg 2-23 by mouth ity of tablet 14:27: in the [place] [address] morning Medical and 4 mg Branch at noon and 4 mg in the evening. insulin NPH 2023-0 Yes 45U inject 45 U nivers human 2-23 Units ity of isophane 14:27: under the [place] (NOVOLIN N 27 skin 2 Medical SC) (two) Branch times daily. HYDROmorpho 2023-0 Yes 4mg Take 4 mg U nivers ne 4 mg 2-23 by mouth ity of tablet 14:27: in the [place] [address] morning Medical and 4 mg Branch at noon and 4 mg in the evening. HYDROmorpho 2023-0 Yes 4mg Take 4 mg U nivers ne 4 mg 2-23 by mouth ity of tablet 14:27: in the [place] [address] morning Medical and 4 mg Branch at noon and 4 mg in the evening. HYDROmorpho 2023-0 Yes 4mg Take 4 mg U nivers ne 4 mg 2-23 by mouth ity of tablet 14:27: in the [place] [address] morning Medical and 4 mg Branch at noon and 4 mg in the evening. HYDROmorpho 2023-0 Yes 4mg Take 4 mg U nivers ne 4 mg 2-23 by mouth ity of tablet 14:27: in the [place] [address] morning Medical and 4 mg Branch at noon and 4 mg in the evening. HYDROmorpho 2023-0 Yes 4mg Take 4 mg U nivers ne 4 mg 2-23 by mouth ity of tablet 14:27: in the [place] [address] morning Medical and 4 mg Branch at noon and 4 mg in the evening. HYDROmorpho 2023-0 Yes 4mg Take 4 mg U nivers ne 4 mg 2-23 by mouth ity of tablet 14:27: in the [place] [address] morning Medical and 4 mg Branch at noon and 4 mg in the evening. HYDROmorpho 2023-0 Yes 4mg Take 4 mg U nivers ne 4 mg 2-23 by mouth ity of tablet 14:27: in the [place] [address] morning Medical and 4 mg Branch at noon and 4 mg in the evening. HYDROmorpho 2023-0 Yes 4mg Take 4 mg U nivers ne 4 mg 2-23 by mouth ity of tablet 14:27: in the [place] [address] morning Medical and 4 mg Branch at noon and 4 mg in the evening. HYDROmorpho 2023-0 Yes 4mg Take 4 mg U nivers ne 4 mg 2-23 by mouth ity of tablet 14:27: in the [place] [address] morning Medical and 4 mg Branch at noon and 4 mg in the evening. HYDROmorpho 2023-0 Yes 4mg Take 4 mg U nivers ne 4 mg 2-23 by mouth ity of tablet 14:27: in the [place] [address] morning Medical and 4 mg Branch at noon and 4 mg in the evening. HYDROmorpho 2023-0 Yes 4mg Take 4 mg U nivers ne 4 mg 2-23 by mouth ity of tablet 14:27: in the [place] [address] morning Medical and 4 mg Branch at noon and 4 mg in the evening. HYDROmorpho 2023-0 Yes 4mg Take 4 mg U nivers ne 4 mg 2-23 by mouth ity of tablet 14:27: in the [place] [address] morning Medical and 4 mg Branch at noon and 4 mg in the evening. HYDROmorpho 2023-0 Yes 4mg Take 4 mg U nivers ne 4 mg 2-23 by mouth ity of tablet 14:27: in the [place] [address] morning Medical and 4 mg Branch at noon and 4 mg in the evening. HYDROmorpho 2023-0 Yes 4mg Take 4 mg U nivers ne 4 mg 2-23 by mouth ity of tablet 14:27: in the [place] [address] morning Medical and 4 mg Branch at noon and 4 mg in the evening. HYDROmorpho 2023-0 Yes 4mg Take 4 mg U nivers ne 4 mg 2-23 by mouth ity of tablet 14:27: in the [place] [address] morning Medical and 4 mg Branch at noon and 4 mg in the evening. HYDROmorpho 2023-0 Yes 4mg Take 4 mg U nivers ne 4 mg 2-23 by mouth ity of tablet 14:27: in the [place] [address] morning Medical and 4 mg Branch at noon and 4 mg in the evening. HYDROmorpho 2023-0 2023- Yes 1mg 1 mg, Slow Univers ne 09-06 IV Push, ity of (DILAUDID) 11:09: 11:08 Q4HPRN, [place] injection 1 37 :37 Starting Medi efrain mg on [facility] Branch 09/06/22 at 0509, Until 09/08/22 at 0508, Routine, Pain (scale 7-10)
U se approved by (Faculty): [facility] PROVIDER HYDROmorpho 2023-0 2023- Yes 1mg 1 mg, Slow Univers ne 09-06 IV Push, ity of (DILAUDID) 11:09: 11:08 Q4HPRN, [place] injection 1 37 :37 Starting Medi efrain mg on [facility] Branch 09/06/22 at 0509, Until 09/08/22 at 0508, Routine, Pain (scale 7-10)
U se approved by (Faculty): [facility] PROVIDER HYDROmorpho 2023-0 Yes 4mg Take 4 mg U nivers ne 4 mg 2-23 by mouth ity of tablet 10:57: in the [place] 10 morning Medical and 4 mg Branch at noon and 4 mg in the evening. insulin NPH 2023-0 Yes 45U inject 45 U nivers human 2-23 Units ity of isophane 10:57: under the [place] (NOVOLIN N 10 skin 2 Medical SC) (two) Branch times daily. HYDROmorpho 2023-0 Yes 4mg Take 4 mg U nivers ne 4 mg 2-23 by mouth ity of tablet 10:57: in the [place] 10 morning Medical and 4 mg Branch at noon and 4 mg in the evening. insulin NPH 2023-0 Yes 45U inject 45 U nivers human 2-23 Units ity of isophane 10:57: under the [place] (NOVOLIN N 10 skin 2 Medical SC) (two) Branch times daily. sodium 2022-0 2022- No 16[oz_a 16 oz, Unive rs hypochlorit 09-06 v] Topical, ity of e 0.5% 04:00: 18:17 Q8H, First [place] (DAKINS) 00 :09 dose on Medical solution 16 Wed Branch oz 09/05/22 at 2200, Until Discontinu ed, Routine amitriptyli 2022-0 Yes 25mg 25 mg, Univ ers ne (ELAVIL) 2-23 Oral, QHS, it y of tablet 25 03:45: First dose [place] mg 00 on Wed Medical 09/05/22 at Branch 2145, Until Discontinu ed, Routine amitriptyli 2022-0 Yes 25mg 25 mg, Univ ers ne (ELAVIL) 2-23 Oral, QHS, it y of tablet 25 03:45: First dose [place] mg 00 on Wed Medical 09/05/22 at Branch 2145, Until Discontinu ed, Routine HYDROmorpho 2022-0 2022- No 1mg 1 mg, Slow Univers ne 09-06 IV Push, ity of (DILAUDID) 03:40: 09:56 Q4HPRN, [place] injection 1 47 :20 Starting Medi efrain mg on Wed Branch 09/05/22 at 2140, Until Libra 09/06/22 at 0356, Routine, Pain (scale 7-10)
U se approved by (Faculty): [facility] PROVIDER FENTanyl PF 2022- No 25ug 25 mcg, Un ela (SUBLIMAZE 09-05 Slow IV ity o f (PF)) 20:55: 21:26 Push, [place] injection 32 :00 Q5MIN PRN, Medi efrain 25 mcg 4 doses, Branch Starting on Sat09/05/22 at 1455, Until Sat09/05/22 at 1526, Routine, Pain (scale 7-10), PACU bupivacaine 2022- No PRN, Unive rs (preserv 09-05 Starting ity of free) 20:36: 21:03 on Sat (SENSORCAIN 00 :01 09/05/22 at Sc dical E MPF) 0.25 1436, Branch % (2.5 Until Sat mg/mL) 09/05/22 at injection 1503, Routine, Intra-op insulin Yes 4U 4 Units, Univer s lispro - Subcutaneo ity of (human) 17:30: us, TIDAC [place] (HumaLOG 00 First dose Medic al U-100) on Sat Branch injection 4 09/05/22 at Units 1130, Until Discontinu ed, Routine insulin 2022-0 Yes 4U 4 Units, Univer s lispro -22 Subcutaneo ity of (human) 17:30: us, TIDAC, [place] (HumaLOG 00 First dose Medic al U-100) on Sat Branch injection 09/05/22 at Units 1130, Until Discontinu ed, Routine proMETHazin Yes 12.5mg 12.5 mg, Univers e - IV ity of (PHENERGAN) 15:11: Piggyback, [place] 12.5 mg in 52 at 200 Medical NaCl 0.9% mL/hr Branch (NS) 50 mL Administer IV over 15 piggyback Minutes, Q4HPRN, Starting on Sat09/05/22 at 0911, Until Discontinu ed, Routine, N/V unresponsi ve to Ondansetro n proMETHazin Yes 12.5mg 12.5 mg, Univers e 2- IV ity of (PHENERGAN) 15:11: [place] 12.5 mg in 52 at 200 Medical NaCl 0.9% mL/hr Branch (NS) 50 mL Administer IV over 15 piggyback Minutes, Q4HPRN, Starting on Sat09/05/22 at 0911, Until Discontinu ed, Routine, N/V unresponsi ve to Ondansetro n cefTRIAXone 2022- Yes 1000mg 1,000 mg, Univers (ROCEPHIN) 09-05 IV ity of 1,000 mg in 04:00: 03:59 [employer], [place] NaCl 0.9% 00 :00 Q24H, 7 Medical (NS) 50 mL doses, Branch MINI-BAG First dose on Sat09/04/22 at 2200, Last dose on Sat09/10/22 at 2200, Administer over 30 Minutes, 50 mL
Reas on for Anti-Infec tive: Documented Infection< br>Documen lester Infection Site: Urine
D uration of Therapy: 7 days cefTRIAXone 2022- Yes 1000mg 1,000 mg, Univers (ROCEPHIN) 09-05 IV ity of 1,000 mg in 04:00: 03:59 [place], [place] NaCl 0.9% 00 :00 Q24H, 7 Medical (NS) 50 mL doses, Branch MINI-BAG First dose on Sat09/04/22 at 2200, Last dose on Sat09/10/22 at 2200, Administer over 30 Minutes, 50 mL
Reas on for Anti-Infec tive: Documented Infection< br>Documen lester Infection Site: Urine
D uration of Therapy: 7 days insulin NPH Yes 30U 30 Units, U nivers (HUMULIN N) - Subcutaneo it y of injection 03:00: [place] 30 Units 00 QAM+HS, Medical First dose Branch (after last modificati on) on Sat09/04/22 at 2100, Until Discontinu ed, Routine insulin NPH Yes 30U 30 Units, U nivers (HUMULIN N) - Subcutaneo it y of injection 03:00: [place] 30 Units 00 QAM+HS, Medical First dose Branch (after last modificati on) on Sat09/04/22 at 2100, Until Discontinu ed, Routine enoxaparin 2022-0 Yes 40mg 40 mg, Unive rs (LOVENOX) - Subcutaneo ity of injection 23:00: [place], DAILY, [place] 40 mg 00 First dose Medical on [facility] 09/04/22 at 1700, Until Discontinu ed, Routine enoxaparin 2022-0 Yes 40mg 40 mg, Unive rs (LOVENOX) 09-04 Subcutaneo ity of injection 23:00: [place], DAILY, [place] 40 mg 00 First dose Medical on [facility] 09/04/22 at 1700, Until Discontinu ed, Routine proCHLORper 2022-0 Yes 10mg 10 mg, IV U nivers azine 09-04 Piggyback, ity of (COMPAZINE) 20:07: [place] 10 mg in 44 mL/hr Medical NaCl 0.9% Administer Bran ch (NS) over 30 piggyback Minutes, Q6HPRN, Starting on Sat09/04/22 at 1407, Until Discontinu ed, Routine, Nausea and Vomiting (N/V) proCHLORper 2022-0 Yes 10mg 10 mg, IV U nivers azine 09-04 Piggyback, ity of (COMPAZINE) 20:07: [place] 100 [place] 10 mg in 44 mL/hr Medical NaCl 0.9% Administer Bran ch (NS) over 30 piggyback Minutes, Q6HPRN, Starting on Sat09/04/22 at 1407, Until Discontinu ed, Routine, Nausea and Vomiting (N/V) insulin 2022- No 10U 10 Units, Univ ers regular 09-04 Subcutaneo ity o f human 19:00: 19:28 us, ONCE, Radha (HUMULIN R) 00 :00 1 dose, On Me dical injection [facility] 10 Units 09/04/22 at 1300, Routine
Indicatio n for insulin: Hyperglyce pedro insulin 2022- No 10U 10 Units, Univ ers regular 09-04 IV Push, ity of human 16:00: 17:00 ONCE, 1 [place]ha (HUMULIN R) 00 :00 dose, On Medi efrain injection Tue Branch 10 Units 09/04/22 at 1000, Routine
Indicatio n for insulin: Hyperglyce pedro pantoprazol Yes 40mg 40 mg, Univ ers e 09-04 Slow IV ity of (PROTONIX) 15:00: Push, [place] injection 00 DAILY, Medical 40 mg First dose Branch on Sat09/04/22 at 0900, Until Discontinu ed sennosides- Yes 1{tbl} 1 tablet, Univers docusate 09-04 Oral, ity of sodium 15:00: DAILY, [place] (SENOKOT-S) 00 First dose Me dical 8.6-50 mg on Sat Branch per tablet 09/04/22 at 1 tablet 0900, Until Discontinu ed, Routine pantoprazol Yes 40mg 40 mg, Univ ers e 09-04 Slow IV ity of (PROTONIX) 15:00: Push, [place] injection 00 DAILY, Medical 40 mg First dose Branch on Sat09/04/22 at 0900, Until Discontinu ed sennosides- Yes 1{tbl} 1 tablet, Univers docusate 09-04 Oral, ity of sodium 15:00: DAILY, [place] (SENOKOT-S) First dose Me dical 8.6-50 mg on Sat Branch per tablet 09/04/22 at 1 tablet 0900, Until Discontinu ed, Routine insulin NPH 2022- No 20U 20 Units, [facility] (HUMULIN N) 09-04 Subcutaneo i ty of injection 15:00: 18:00 [place], [place] 20 Units 00 :37 QAM+HS, Medical First dose Branch on Sat09/04/22 at 0900, Until Discontinu ed, Routine Sliding Yes Subcutaneo Univ ers Scale 2-21 us, TID ity of Insulin - 14:00: MEALS+HS, [place] Lispro 00 First dose Medical (HumaLOG) + on Sat Branch Fsbg 09/04/22 at Testing 0800, Until Discontinu ed, Routine Sliding Yes Subcutaneo Univ ers Scale 2-21 us, TID ity of Insulin - 14:00: MEALS+HS, [place] Lispro 00 First dose Medical (HumaLOG) + on Sat Branch Fsbg 09/04/22 at Testing 0800, Until Discontinu ed, Routine HYDROmorpho 0 2022- No .5mg 0.5 mg, Un ela ne 09-04 Slow IV ity of (DILAUDID) 09:57: 03:41 Push, [place] injection 20 :06 Q4HPRN, Medical 0.5 mg Starting Branch on Sat09/04/22 at 0357, Until Sat09/05/22 at 2141, Routine, Pain (scale 7-10)
U se approved by (Faculty): [facility] PROVIDER HYDROmorpho 2022-0 Yes 4mg 4 mg, Unive rs ne 09-04 Oral, ity of (DILAUDID) 09:57: Q4HPRN, [place] tablet 4 mg 04 Starting Medi efrain on Sat Branch 09/04/22 at 0357, Until Discontinu ed, Routine, Pain (scale 4-6) HYDROmorpho 2022-0 Yes 4mg 4 mg, Unive rs ne - Oral, ity of (DILAUDID) 09:57: Q4HPRN, [place] tablet 4 mg 04 Starting Medi efrain on Sat Branch 09/04/22 at 0357, Until Discontinu ed, Routine, Pain (scale 4-6) FENTanyl PF 2022-0 2022- No 50ug 50 mcg, Un ela (SUBLIMAZE 09-04 Slow IV ity o f (PF)) 09:17: 09:58 Push, [place] injection 04 :01 Q4HPRN, Medical 50 mcg Starting Branch on Sat09/04/22 at 0317, Until Sat09/04/22 at 0358, Routine, Pain (scale 7-10) NaCl 0.9% 2022-0 Yes 1000mL at 125 Univ ers (NS) IV 2-21 mL/hr, IV ity of infusion 09:00: Infusion, [place] 1,000 mL 00 CONTINUOUS Medic al , Starting Branch on Sat09/04/22 at 0300, Until Discontinu ed, Routine NaCl 0.9% 2022-0 Yes 1000mL at 125 Univ ers (NS) IV 2-21 mL/hr, IV ity of infusion 09:00: Infusion, [place] 1,000 mL 00 CONTINUOUS Medic al , Starting Branch on 09/04/22 at 0300, Until Discontinu ed, Routine glucagon 2023-0 Yes 1mg 1 mg, Univers (GLUCAGEN 2-21 Intramuscu ity of DIAGNOSTIC 08:53: [place], [place], [place] KIT) 52 Starting Medical injection 1 on [facility] Branch mg 09/04/22 at 0253, Until Discontinu ed, SAHARA, Blood Glucose < or = 70 mg/dL and patient is NPO, unable to swallow or has mental changes. dextrose 50 2023-0 Yes 25mL 25 mL, Univ ers % in water 2-21 Slow IV ity of (D50W) 08:53: Push, PRN, [place] injection 52 Starting Medica l 25 mL on [facility] Branch 09/04/22 at 0253, Until Discontinu ed, SAHARA, Blood Glucose < or = 70 mg/dL and patient is NPO, unable to swallow or has mental status changes. glucagon 2023-0 Yes 1mg 1 mg, Univers (GLUCAGEN 2-21 Intramuscu ity of DIAGNOSTIC 08:53: [place], [place]N, [place] KIT) 52 Starting Medical injection [address] [facility] 09/04/22 at 0253, Until Discontinu ed, SAHARA, Blood Glucose < or = 70 mg/dL and patient is NPO, unable to swallow or has mental changes. dextrose 50 2023-0 Yes 25mL 25 mL, Univ ers % in water 2-21 Slow IV ity of (D50W) 08:53: Push, PRN, [place] injection 52 Starting Medica l 25 mL on [facility] 09/04/22 at 0253, Until Discontinu ed, SAHARA, Blood Glucose < or = 70 mg/dL and patient is NPO, unable to swallow or has mental status changes. ondansetron 2023-0 Yes 4mg 4 mg, Slow Univers (ZOFRAN 2-21 IV Push, ity of (PF)) 08:53: Q6HPRN, [place] injection 4 45 Starting Medi efrain mg on [facility] Branch 09/04/22 at 0253, Until Discontinu ed, Routine, Nausea and Vomiting (N/V) ondansetron 2023-0 Yes 4mg 4 mg, Slow Univers (ZOFRAN 09-04 IV Push, ity of (PF)) 08:53: Q6HPRN, [place] injection 4 45 Starting Medi efrain mg on Sat Branch 09/04/22 at 0253, Until Discontinu ed, Routine, Nausea and Vomiting (N/V) acetaminoph 3-0 Yes 650mg 650 mg, Un ela en 09-04 Oral, ity of (TYLENOL) 08:53: Q6HPRN, [place] tablet 650 15 Starting Medic al mg on Sat Branch 09/04/22 at 0253, Until Discontinu ed, Routine, Pain (scale 1-3) acetaminoph 3-0 Yes 650mg 650 mg, Un ela en 09-04 Oral, ity of (TYLENOL) 08:53: Q6HPRN, [place] tablet 650 15 Starting Medic al mg on Sat Branch 09/04/22 at 0253, Until Discontinu ed, Routine, Pain (scale 1-3) insulin 2022-0 202- No 10U 10 Units, Univ ers regular 09-04 IV Push, ity of human 06:30: 05:53 ONCE, 1 [place] (HUMULIN R) 00 :00 dose, On Medi efrain injection Sat Branch 10 Units 09/04/22 at 0030, Routine
Indicatio n for insulin: Hyperglyce pedro NaCl 0.9% 2022- No 1000mL at 999 Uni vers (NS) bolus 09-04 mL/hr, ity of infusion 06:00: 06:53 1,000 mL, Tim as 1,000 mL 00 :00 IV Medical Infusion, Branch ONCE, 1 dose, On Sat09/04/22 at 0000, [place] insulin 2022-0 2022- No 10U 10 Units, Univ ers regular 09-04 Slow IV ity of human 05:00: 04:15 Push, [place] (HUMULIN R) 00 :00 ONCE, 1 Medic al injection dose, On Branch 10 Units 09/03/22 at 2300, Routine
Indicatio n for insulin: Hyperglyce pedro NaCl 0.9% 2022- No 1000mL at 999 Uni vers (NS) bolus 09-04 mL/hr, ity of infusion 04:45: 05:33 1,000 mL, Tim as 1,000 mL 00 :00 IV Medical Infusion, Branch ONCE, 1 dose, On [facility] 09/03/22 at 2245, SAHARA ibuprofen 2022-0 2022- No 600mg 600 mg, Uni vers (IBU) 09-04 Oral, ity of tablet 600 04:09: 04:21 ONCE, 1 [place] mg 00 :00 dose, On Medical Mon [place] 09/03/22 at 2215, [place] cefTRIAXone 2022-0 2022- No 1000mg 1,000 mg, Univers (ROCEPHIN) 09-04 IV ity of 1,000 mg in 03:45: 04:34 Piggyback, [place] NaCl 0.9% 00 :00 ONCE, 1 Medical (NS) 100 mL dose, On Bran ch MINI-BAG Sat09/03/22 at 2145, Administer over 30 Minutes, 100 mL
Reas on for Anti-Infec tive: Documented Infection< br>Documen lester Infection Site: Urine<br&g t;Duration of Therapy: Other (see Comments) HYDROmorpho Yes 4mg Take 4 mg U nivers ne 4 mg 2-21 by mouth ity of tablet 01:46: in the [place] 16 morning Medical and 4 mg Branch at noon and 4 mg in the evening. insulin NPH Yes 45U inject 45 U nivers human 2-21 Units ity of isophane 01:46: [place] (NOVOLIN N 16 skin 2 Medical SC) (two) Branch times daily. flash 0 Yes [id number] 1{kit} 1 Kit Unive rs glucose 2-14 daily. ity of scanning 00:00: [place] reader 00 Medical (FREESTYLE Branch RIGO 2 READER) Misc flash 2022-0 Yes [id number] 1{kit} 1 Kit Unive rs glucose 2-14 every 14 ity of sensor 00:00: (fourteen) [place] (FREESTYLE 00 days. Medical RIGO 2 Branch SENSOR) Kit flash 2022-0 Yes [id number] 1{kit} 1 Kit Unive rs glucose 2-14 daily. ity of scanning 00:00: [place] reader 00 Medical (FREESTYLE Branch RIGO 2 READER) Misc flash 2022-0 Yes [id number] 1{kit} 1 Kit Unive rs glucose 2-14 every 14 ity of sensor 00:00: (fourteen) [place] (FREESTYLE 00 days. Medical RIGO 2 Branch SENSOR) Kit flash 2023-0 Yes [id number] 1{kit} 1 Kit Unive rs glucose 2-14 daily. ity of scanning 00:00: [place] reader 00 Medical (FREESTYLE Branch RIGO 2 READER) Misc flash 2023-0 Yes [id number] 1{kit} 1 Kit Unive rs glucose 2-14 every 14 ity of sensor 00:00: (fourteen) [place] (FREESTYLE 00 days. Medical RIGO 2 Branch SENSOR) Kit flash 2023-0 Yes [id number] 1{kit} 1 Kit Unive rs glucose 2-14 daily. ity of scanning 00:00: [place] reader 00 Medical (FREESTYLE Branch RIGO 2 READER) Misc flash 2023-0 Yes [id number] 1{kit} 1 Kit Unive rs glucose 2-14 every 14 ity of sensor 00:00: (fourteen) [place] (FREESTYLE 00 days. Medical RIGO 2 Branch SENSOR) Kit flash 2023-0 Yes [id number] 1{kit} 1 Kit Unive rs glucose 2-14 daily. ity of scanning 00:00: [place] reader 00 Medical (FREESTYLE Branch RIGO 2 READER) Misc flash 2023-0 Yes [id number] 1{kit} 1 Kit Unive rs glucose 2-14 every 14 ity of sensor 00:00: (fourteen) [place] (FREESTYLE 00 days. Medical RIGO 2 Branch SENSOR) Kit flash 2023-0 Yes [id number] 1{kit} 1 Kit Unive rs glucose 2-14 daily. ity of scanning 00:00: [place] reader 00 Medical (FREESTYLE Branch RIGO 2 READER) Misc flash 2023-0 Yes [id number] 1{kit} 1 Kit Unive rs glucose 2-14 every 14 ity of sensor 00:00: (fourteen) [place] (FREESTYLE 00 days. Medical RIGO 2 Branch SENSOR) Kit flash 2023-0 Yes [id number] 1{kit} 1 Kit Unive rs glucose 2-14 daily. ity of scanning 00:00: [place] reader 00 Medical (FREESTYLE Branch RIGO 2 READER) Misc flash 2023-0 Yes [id number] 1{kit} 1 Kit Unive rs glucose 2-14 every 14 ity of sensor 00:00: (fourteen) [place] (FREESTYLE 00 days. Medical RIGO 2 Branch SENSOR) Kit flash 2023-0 Yes [id number] 1{kit} 1 Kit Unive rs glucose 2-14 daily. ity of scanning 00:00: [place] reader 00 Medical (FREESTYLE Branch RIGO 2 READER) Misc flash 2023-0 Yes [id number] 1{kit} 1 Kit Unive rs glucose 2-14 every 14 ity of sensor 00:00: (fourteen) [place] (FREESTYLE 00 days. Medical RIGO 2 Branch SENSOR) Kit flash 2023-0 Yes [id number] 1{kit} 1 Kit Unive rs glucose 2-14 daily. ity of scanning 00:00: [place] reader 00 Medical (FREESTYLE Branch RIGO 2 READER) Misc flash 2023-0 Yes [id number] 1{kit} 1 Kit Unive rs glucose 2-14 every 14 ity of sensor 00:00: (fourteen) [place] (FREESTYLE 00 days. Medical RIGO 2 Branch SENSOR) Kit flash 2023-0 Yes [id number] 1{kit} 1 Kit Unive rs glucose 2-14 daily. ity of scanning 00:00: [place] reader 00 Medical (FREESTYLE Branch RIGO 2 READER) Misc flash 2023-0 Yes [id number] 1{kit} 1 Kit Unive rs glucose 2-14 every 14 ity of sensor 00:00: (fourteen) [place] (FREESTYLE 00 days. Medical RIGO 2 Branch SENSOR) Kit flash 2023-0 Yes [id number] 1{kit} 1 Kit Unive rs glucose 2-14 daily. ity of scanning 00:00: [place] reader 00 Medical (FREESTYLE Branch RIGO 2 READER) Misc flash 2023-0 Yes [id number] 1{kit} 1 Kit Unive rs glucose 2-14 every 14 ity of sensor 00:00: (fourteen) [place] (FREESTYLE 00 days. Medical RIGO 2 Branch SENSOR) Kit flash 2023-0 Yes [id number] 1{kit} 1 Kit Unive rs glucose 2-14 daily. ity of scanning 00:00: [place] reader 00 Medical (FREESTYLE Branch RIGO 2 READER) Misc flash 2023-0 Yes [id number] 1{kit} 1 Kit Unive rs glucose 2-14 every 14 ity of sensor 00:00: (fourteen) [place] (FREESTYLE 00 days. Medical RIGO 2 Branch SENSOR) Kit flash 2023-0 Yes [id number] 1{kit} 1 Kit Unive rs glucose 2-14 daily. ity of scanning 00:00: [place] reader 00 Medical (FREESTYLE Branch RIGO 2 READER) Misc flash 2023-0 Yes [id number] 1{kit} 1 Kit Unive rs glucose 2-14 every 14 ity of sensor 00:00: (fourteen) [place] (FREESTYLE 00 days. Medical RIGO 2 Branch SENSOR) Kit flash 2023-0 Yes [id number] 1{kit} 1 Kit Unive rs glucose 2-14 daily. ity of scanning 00:00: [place] reader 00 Medical (FREESTYLE Branch RIGO 2 READER) Misc flash 2023-0 Yes [id number] 1{kit} 1 Kit Unive rs glucose 2-14 every 14 ity of sensor 00:00: (fourteen) [place] (FREESTYLE 00 days. Medical RIGO 2 Branch SENSOR) Kit flash 2023-0 Yes [id number] 1{kit} 1 Kit Unive rs glucose 2-14 daily. ity of scanning 00:00: [place] reader 00 Medical (FREESTYLE Branch RIOG 2 READER) Misc flash 2023-0 Yes [id number] 1{kit} 1 Kit Unive rs glucose 2-14 every 14 ity of sensor 00:00: (fourteen) [place] (FREESTYLE 00 days. Medical RIGO 2 Branch SENSOR) Kit flash 2023-0 Yes [id number] 1{kit} 1 Kit Unive rs glucose 2-14 daily. ity of scanning 00:00: [place] reader 00 Medical (FREESTYLE Branch RIGO 2 READER) Misc flash 2023-0 Yes [id number] 1{kit} 1 Kit Unive rs glucose 2-14 every 14 ity of sensor 00:00: (fourteen) [place] (FREESTYLE 00 days. Medical RIGO 2 Branch SENSOR) Kit flash 2023-0 Yes [id number] 1{kit} 1 Kit Unive rs glucose 2-14 daily. ity of scanning 00:00: [place] reader 00 Medical (FREESTYLE Branch RIGO 2 READER) Misc flash 2023-0 Yes [id number] 1{kit} 1 Kit Unive rs glucose 2-14 every 14 ity of sensor 00:00: (fourteen) [place] (FREESTYLE 00 days. Medical RIGO 2 Branch SENSOR) Kit flash 2023-0 Yes [id number] 1{kit} 1 Kit Unive rs glucose 2-14 daily. ity of scanning 00:00: [place] reader 00 Medical (FREESTYLE Branch RIGO 2 READER) Misc flash 2023-0 Yes [id number] 1{kit} 1 Kit Unive rs glucose 2-14 every 14 ity of sensor 00:00: (fourteen) [place] (FREESTYLE 00 days. Medical RIOG 2 Branch SENSOR) Kit flash 2023-0 Yes [id number] 1{kit} 1 Kit Unive rs glucose 2-14 daily. ity of scanning 00:00: [place] reader 00 Medical (FREESTYLE Branch RIGO 2 READER) Misc flash 2023-0 Yes [id number] 1{kit} 1 Kit Unive rs glucose 2-14 every 14 ity of sensor 00:00: (fourteen) [place] (FREESTYLE 00 days. Medical RIGO 2 Branch SENSOR) Kit flash 2023-0 Yes [id number] 1{kit} 1 Kit Unive rs glucose 2-14 daily. ity of scanning 00:00: [place] reader 00 Medical (FREESTYLE Branch RIGO 2 READER) Misc flash 2023-0 Yes [id number] 1{kit} 1 Kit Unive rs glucose 2-14 every 14 ity of sensor 00:00: (fourteen) [place] (FREESTYLE 00 days. Medical RIGO 2 Branch SENSOR) Kit flash 2023-0 Yes [id number] 1{kit} 1 Kit Unive rs glucose 2-14 daily. ity of scanning 00:00: [place] reader 00 Medical (FREESTYLE Branch RIGO 2 READER) Misc flash 2023-0 Yes [id number] 1{kit} 1 Kit Unive rs glucose 2-14 every 14 ity of sensor 00:00: (fourteen) [place] (FREESTYLE 00 days. Medical RIGO 2 Branch SENSOR) Kit flash 2023-0 Yes [id number] 1{kit} 1 Kit Unive rs glucose 2-14 daily. ity of scanning 00:00: [place] reader 00 Medical (FREESTYLE Branch RIGO 2 READER) Misc flash 2023-0 Yes [id number] 1{kit} 1 Kit Unive rs glucose 2-14 every 14 ity of sensor 00:00: (fourteen) [place] (FREESTYLE 00 days. Medical RIGO 2 Branch SENSOR) Kit flash 2023-0 Yes [id number] 1{kit} 1 Kit Unive rs glucose 2-14 daily. ity of scanning 00:00: [place] reader 00 Medical (FREESTYLE Branch RIGO 2 READER) Misc flash 2023-0 Yes [id number] 1{kit} 1 Kit Unive rs glucose 2-14 every 14 ity of sensor 00:00: (fourteen) [place] (FREESTYLE 00 days. Medical RIGO 2 Branch SENSOR) Kit flash 2023-0 Yes [id number] 1{kit} 1 Kit Unive rs glucose 2-14 daily. ity of scanning 00:00: [place] reader 00 Medical (FREESTYLE Branch RIGO 2 READER) Misc flash 2023-0 Yes [id number] 1{kit} 1 Kit Unive rs glucose 2-14 every 14 ity of sensor 00:00: (fourteen) [place] (FREESTYLE 00 days. Medical RIGO 2 Branch SENSOR) Kit flash 2023-0 Yes [id number] 1{kit} 1 Kit Unive rs glucose 2-14 daily. ity of scanning 00:00: [place] reader 00 Medical (FREESTYLE Branch RIGO 2 READER) Misc flash 2023-0 Yes [id number] 1{kit} 1 Kit Unive rs glucose 2-14 every 14 ity of sensor 00:00: (fourteen) [place] (FREESTYLE 00 days. Medical RIGO 2 Branch SENSOR) Kit flash 2023-0 Yes [id number] 1{kit} 1 Kit Unive rs glucose 2-14 daily. ity of scanning 00:00: [place] reader 00 Medical (FREESTYLE Branch RIGO 2 READER) Misc flash 2023-0 Yes [id number] 1{kit} 1 Kit Unive rs glucose 2-14 every 14 ity of sensor 00:00: (fourteen) [place] (FREESTYLE 00 days. Medical RIGO 2 Branch SENSOR) Kit flash 2023-0 Yes [id number] 1{kit} 1 Kit Unive rs glucose 2-14 daily. ity of scanning 00:00: [place] reader 00 Medical (FREESTYLE Branch RIGO 2 READER) Misc flash 2023-0 Yes [id number] 1{kit} 1 Kit Unive rs glucose 2-14 every 14 ity of sensor 00:00: (fourteen) [place] (FREESTYLE 00 days. Medical RIGO 2 Branch SENSOR) Kit flash 2023-0 Yes [id number] 1{kit} 1 Kit Unive rs glucose 2-14 daily. ity of scanning 00:00: [place] reader 00 Medical (FREESTYLE Branch RIGO 2 READER) Misc flash 2023-0 Yes [id number] 1{kit} 1 Kit Unive rs glucose 2-14 every 14 ity of sensor 00:00: (fourteen) [place] (FREESTYLE 00 days. Medical RIGO 2 Branch SENSOR) Kit flash 2023-0 Yes [id number] 1{kit} 1 Kit Unive rs glucose 2-14 daily. ity of scanning 00:00: [place] reader 00 Medical (FREESTYLE Branch RIGO 2 READER) Misc flash 2023-0 Yes [id number] 1{kit} 1 Kit Unive rs glucose 2-14 every 14 ity of sensor 00:00: (fourteen) [place] (FREESTYLE 00 days. Medical RIGO 2 Branch SENSOR) Kit HYDROcodone 3-0 2022- No 1{tbl} 1 tablet, Univers -acetaminop 08-27 Oral, ity of hen (NORCO) 21:15: 20:14 ONCE, 1 [place] 10-325 mg 00 :00 dose, On Medica l tablet 1 Mon Branch tablet 08/27/22 at 1515, Routine flash 2023-0 Yes [id number] 1{kit} 1 Kit Unive rs glucose 2-12 every 14 ity of sensor 00:00: (fourteen) [place] (FREESTYLE 00 days. Medical RIGO 2 Branch SENSOR) Kit flash 2023-0 Yes [id number] 1{kit} 1 Kit Unive rs glucose 2-12 daily. ity of scanning 00:00: [place] reader 00 Medical (FREESTYLE Branch RIGO 2 READER) Misc flash 2023-0 Yes [id number] 1{kit} 1 Kit Unive rs glucose 2-12 every 14 ity of sensor 00:00: (fourteen) [place] (FREESTYLE 00 days. Medical RIGO 2 Branch SENSOR) Kit flash 2023-0 Yes [id number] 1{kit} 1 Kit Unive rs glucose 2-12 daily. ity of scanning 00:00: [place] reader 00 Medical (FREESTYLE Branch RIGO 2 READER) Misc flash 2023-0 2023- No [id number] 1{kit} 1 Kit [facility] ers glucose 2-12 14 every 14 ity of sensor 00:00: 00:00 ([place]teen[place] (FREESTYLE 00 :00 days. Medical RIGO 2 Branch SENSOR) Kit flash 2022- No [id number] 1{kit} 1 Kit [facility] ers glucose 2-14 daily. ity of scanning 00:00: 00:00 [place] reader 00 :00 Medical (FREESTYLE Branch RIGO 2 READER) [facility] insulin 2022- No 12U 12 Units, [facility] ers regular 08-25 Slow IV ity of human 02:00: 01:32 [facility] [place] (HUMULIN R) 00 :00 ONCE, 1 Medic al injection dose, On Branch 12 Units Sat08/24/22 at 2000, Routine
Indicatio n for insulin: Hyperglyce pedro cefTRIAXone 2022- No 1000mg 1,000 mg, Univers (ROCEPHIN) 08-25 IV ity of 1,000 mg in 01:30: 02:39 [place]gyback, [place] NaCl 0.9% 00 :00 ONCE, 1 Medical (NS) 50 mL dose, On Branc h MINI-BAG Sat08/24/22 at 1930, Administer over 30 Minutes, 50 mL
Reas on for Anti-Infec tive: Documented Infection< br>Documen lester Infection Site: Urine<br&g t;Duration of Therapy: 7 days NaCl 0.9% 2022- No 1000mL at 999 Uni vers (NS) bolus 08-25 mL/hr, ity of infusion 00:00: 02:51 1,000 mL, [place] 1,000 mL 00 :00 IV Medical Infusion, Branch ONCE, 1 dose, On 08/24/22 at 1800, [place] proMETHazin 2022- No 25mg 25 mg, IV Univers e 08-24 Piggyback, ity of (PHENERGAN) 23:15: 23:59 [place]CE, 1 [place] 25 mg in 00 :00 dose, On Medical NaCl 0.9% Fri Branch (NS) 50 mL 08/24/22 at IV 1715, [place] piggyback FENTanyl PF 2022- No 50ug 50 mcg, Un ela (SUBLIMAZE 08-24 02-10 Slow IV ity o f (PF)) 01:15: 00:23 Push, [place] injection 00 :00 ONCE, 1 Medical 50 mcg dose, On Branch Libra 08/23/22 at 1915, Routine insulin 2022- No 10U 10 Units, Univ ers regular 08-23 Slow IV ity of human 22:45: 22:13 Push, [place] (HUMULIN R) 00 :00 ONCE, 1 Medic al injection dose, On Branch 10 Units Libra 08/23/22 at 1645, Routine
Indicatio n for insulin: Hyperglyce pedro NaCl 0.9% 2022- No 1000mL at 999 Uni vers (NS) bolus 08-23-10 mL/hr, ity of infusion 22:00: 00:01 1,000 mL, Tim [place] 1,000 mL 00 :00 IV Medical Infusion, Branch ONCE, 1 dose, On [place] 08/23/22 at 1600, [place] proMETHazin 2022- No 25mg 25 mg, IV Univers e 08-23 Piggyback, ity of (PHENERGAN) 21:30: 22:13 [place]CE, 1 [place] 25 mg in 00 :00 dose, On Medical NaCl 0.9% [facility] 08/23/22 Bran ch (NS) 50 mL at 1530, IV [place] piggyback enoxaparin Yes 40mg 40 mg, Unive rs (LOVENOX) 08-16 Subcutaneo ity of injection 23:00: [place], DAILY, [place] 40 mg 00 First dose Medical on Libra Branch 08/16/22 at 1700, Until Discontinu ed, Routine HYDROmorpho Yes 4mg Take 4 mg U nivers ne 4 mg 02 by mouth ity of tablet 19:25: in the [place] 48 morning Medical and 4 mg Branch at noon and 4 mg in the evening. insulin NPH Yes 45U inject 45 U nivers human 2-02 Units ity of isophane 19:25: [place] (NOVOLIN N 48 skin 2 Medical SC) (two) Branch times daily. HYDROmorpho 3-0 Yes 4mg Take 4 mg U nivers ne 4 mg 2-02 by mouth ity of tablet 19:25: in the [place] [address] morning Medical and 4 mg Branch at noon and 4 mg in the evening. insulin NPH 2023-0 Yes 45U inject 45 U nivers human 2-02 Units ity of isophane 19:25: [place] (NOVOLIN N 48 skin 2 Medical SC) (two) Branch times daily. HYDROmorpho 2023-0 Yes 4mg Take 4 mg U nivers ne 4 mg 2-02 by mouth ity of tablet 19:25: in the [place] [address] morning Medical and 4 mg Branch at noon and 4 mg in the evening. insulin NPH 2023-0 Yes 45U inject 45 U nivers human 2-02 Units ity of isophane 19:25: [place] (NOVOLIN N 48 skin 2 Medical SC) (two) Branch times daily. HYDROmorpho 2023-0 Yes 4mg Take 4 mg U nivers ne 4 mg 2-02 by mouth ity of tablet 19:25: in the [place] [address] morning Medical and 4 mg Branch at noon and 4 mg in the evening. insulin NPH 2023-0 Yes 45U inject 45 U nivers human 2-02 Units ity of isophane 19:25: [place] (NOVOLIN N 48 skin 2 Medical SC) (two) Branch times daily. HYDROmorpho 2023-0 Yes 4mg Take 4 mg U nivers ne 4 mg 2-02 by mouth ity of tablet 19:25: in the [place] [address] morning Medical and 4 mg Branch at noon and 4 mg in the evening. insulin NPH 2023-0 Yes 45U inject 45 U nivers human 2-02 Units ity of isophane 19:25: [place] (NOVOLIN N 48 skin 2 Medical SC) (two) Branch times daily. HYDROmorpho 2023-0 Yes 4mg Take 4 mg U nivers ne 4 mg 2-02 by mouth ity of tablet 19:25: in the [place] [address] morning Medical and 4 mg Branch at noon and 4 mg in the evening. insulin NPH 2023-0 Yes 45U inject 45 U nivers human 2-02 Units ity of isophane 19:25: [place] (NOVOLIN N 48 skin 2 Medical SC) (two) Branch times daily. HYDROmorpho 2023-0 Yes 4mg Take 4 mg U nivers ne 4 mg 2-02 by mouth ity of tablet 19:25: in the [place] 48 morning Medical and 4 mg Branch at noon and 4 mg in the evening. insulin NPH 2023-0 Yes 45U inject 45 U nivers human 2-02 Units ity of isophane 19:25: [place] (NOVOLIN N 48 skin 2 Medical SC) (two) Branch times daily. HYDROmorpho 2023-0 Yes 4mg Take 4 mg U nivers ne 4 mg 2-02 by mouth ity of tablet 19:25: in the [place] [address] morning Medical and 4 mg Branch at noon and 4 mg in the evening. insulin NPH 2023-0 Yes 45U inject 45 U nivers human 2-02 Units ity of isophane 19:25: [place] (NOVOLIN N 48 skin 2 Medical SC) (two) Branch times daily. HYDROmorpho 2023-0 Yes 4mg Take 4 mg U nivers ne 4 mg 2-02 by mouth ity of tablet 19:25: in the [place] [address] morning Medical and 4 mg Branch at noon and 4 mg in the evening. insulin NPH 2023-0 Yes 45U inject 45 U nivers human 2-02 Units ity of isophane 19:25: [place] (NOVOLIN N 48 skin 2 Medical SC) (two) Branch times daily. HYDROmorpho 2023-0 Yes 4mg Take 4 mg U nivers ne 4 mg 2-02 by mouth ity of tablet 19:25: in the [place] [address] morning Medical and 4 mg Branch at noon and 4 mg in the evening. insulin NPH 2023-0 Yes 45U inject 45 U nivers human 2-02 Units ity of isophane 19:25: under [place] (NOVOLIN N 48 skin 2 Medical SC) (two) Branch times daily. HYDROmorpho 2023-0 Yes 4mg Take 4 mg U nivers ne 4 mg 2-02 by mouth ity of tablet 19:25: in the [place] [id number] morning Medical and 4 mg Branch at noon and 4 mg in the evening. insulin NPH 2023-0 Yes 45U inject 45 U nivers human 2-02 Units ity of isophane 19:25: [place] (NOVOLIN N 48 skin 2 Medical SC) (two) Branch times daily. HYDROmorpho 2022-0 Yes 4mg Take 4 mg U nivers ne 4 mg 08-16 by mouth ity of tablet 19:25: in the [place] 48 morning Medical and 4 mg Branch at noon and 4 mg in the evening. insulin NPH 2022-0 Yes 45U inject 45 U nivers human 2-02 Units ity of isophane 19:25: [place] (NOVOLIN N 48 skin 2 Medical SC) (two) Branch times daily. magnesium Yes 400mg 400 mg, Univ ers oxide 08-16 Oral, BID, ity of (MAG-OX 14:00: [place] 400) tablet 00 on Libra Medica l 400 mg 08/16/22 at Branch 0800, Until Discontinu ed, Routine Sliding 0 Yes Subcutaneo Univ ers Scale - us, TID ity of Insulin - 14:00: MEALS, [place] Lispro 00 First dose Medical (HumaLOG) + on Libra Branch Fsbg 08/16/22 at Testing 0800, Until Discontinu ed, Routine magnesium 2022-0 2022- No 2g 2 g, IV Univ ers sulfate in 08-16 Piggyback, it y of water 2 14:00: 15:41 Administer [place] gram/50 mL 00 :00 over 60 Medica l (4 %) Minutes, Branch infusion 2 ONCE, 1 g dose, On Libra 08/16/22 at 0800, Routine HYDROcodone 2022-0 Yes 1{tbl} 1 tablet, Univers -acetaminop 08-16 Oral, ity of hen (NORCO) 13:47: Q8HPRN, [place] 10-325 mg 52 Starting Medica l tablet 1 on Libra Branch tablet 08/16/22 at 0747, Until Discontinu ed, Routine, Pain (scale 4-6) glipiZIDE 2022-0 Yes 5mg 5 mg, Univers (GLUCOTROL) 08-16 Oral, ity of tablet 5 mg 13:30: BIDAC, [place] 00 First dose Medical on Libra Branch 08/16/22 at 0730, Until Discontinu ed, Routine NaCl 0.9% 2022-0 Yes 1000mL at 150 Univ ers (NS) IV 2-02 mL/hr, IV ity of infusion 09:15: Infusion, [place] 1,000 mL 00 CONTINUOUS Medic al , Starting Branch on Libra 08/16/22 at 0315, Until Discontinu ed, Routine NaCl 0.9% 2022-0 2023- No 1000mL at 999 Uni vers (NS) bolus 202 02-02 mL/hr, ity of infusion 09:00: 10:08 1,000 mL, [place] 1,000 mL 00 :51 IV Medical Infusion, Branch ONCE, 1 dose, On Libra 08/16/22 at 0300, STAT sennosides 0 Yes 8.6mg 8.6 mg, Uni vers (SENOKOT) 2-02 Oral, BID, ity of tablet 8.6 08:30: First dose [place] mg 00 on Libra Medical 08/16/22 at Branch 0230, Until Discontinu ed, Routine docusate 0 Yes 100mg 100 mg, Unive rs (COLACE) 202 Oral, BID, ity o f capsule 100 08:30: First dose [place] mg 00 on Libra Medical 08/16/22 at Branch 0230, Until Discontinu ed, Routine insulin NPH 0 Yes 20U 20 Units, U nivers and regular 02 Subcutaneo it y of human 70-30 08:30: us, BIDAC, [place] (70-30 00 First dose Medical U-100 (after Branch INSULIN) last 100 unit/mL modificati (70-30) on) on Libra injection 08/16/22 at 20 Units 0230, Until Discontinu ed, Routine proCHLORper 0 Yes 10mg 10 mg, Univ ers azine 2-02 Slow IV ity of (COMPAZINE) 08:19: Push, [place] injection 04 Q6HPRN, Medical 10 mg Starting Branch on Libra 08/16/22 at 0219, Until Discontinu ed, Routine, Nausea and Vomiting (N/V) FENTanyl PF 2022-0 Yes 50ug 50 mcg, Uni vers (SUBLIMAZE 08-16 Slow IV ity of (PF)) 05:33: Push, [place] injection 35 Q4HPRN, Medical 50 mcg Starting Branch on Sat08/15/22 at 2333, Until Discontinu ed, Routine, Pain (scale 7-10) sodium 2022- No 30g 30 g, Univers polystyrene 08-16 Oral, ity of sulfonate 03:15: 05:11 ONCE, 1 [place] (KAYEXALATE 00 :00 dose, On Medi efrain ) 15 Sat08/15/22 Branch gram/60 mL at 2115, suspension Routine 30 g insulin 2022- No 5U 5 Units, Unive rs regular 08-16 Slow IV ity of human 02:15: 01:10 Push, [place] (HUMULIN R) 00 :00 ONCE, 1 Medic al injection 5 dose, On Bran ch Units Sat08/15/22 at 2015, STAT
In dication for insulin: Hyperglyce pedro cefTRIAXone 2022- No 1000mg 1,000 mg, Univers (ROCEPHIN) 08-16 IV ity of 1,000 mg in 01:45: 02:27 Piggyback, [place] NaCl 0.9% 00 :00 ONCE, 1 Medical (NS) 50 mL dose, On Branc h MINI-BAG Sat08/15/22 at 1945, Administer over 30 Minutes, 50 mL
R keegan for Anti-Infec tive: Documented Infection< br>Documen lester Infection Site: Urine<br&g t;Duration of Therapy: Other (see Comments) acetaminoph 2022- No 1000mg 1,000 mg, Univers en 08-16 Oral, ity of (TYLENOL) 01:30: 01:28 ONCE, 1 [place] tablet 00 :00 dose, On Medical 1,000 mg 08/15/22 Branc h at 1930, SAHARA iopamidol 2022- No [id number] 80mL 80 mL, U nivers (ISOVUE 08-16 Intravenou ity o f 370-500 mL) 00:45: 00:45 s, ONCE, 1 [place] injection 00 :00 dose, On Medica l 80 mL 08/15/22 Branch at 1845, Routine FENTanyl PF 2022- No 75ug 75 mcg, Un ela (SUBLIMAZE 08-15 Slow IV ity o f (PF)) 22:45: 22:19 Push, [place] injection 00 :00 ONCE, 1 Medical 75 mcg dose, On Branch 08/15/22 at 1645, STAT insulin 2022- No 10U 10 Units, Univ ers regular 08-15 Slow IV ity of human 22:30: 21:28 Push, [place] (HUMULIN R) 00 :00 ONCE, 1 Medic al injection dose, On Branch 10 Units 08/15/22 at 1630, STAT
In dication for insulin: Hyperglyce pedro NaCl 0.9% 2022- No 1000mL at 999 Uni vers (NS) bolus 08-15 mL/hr, ity of infusion 22:30: 23:40 1,000 mL, [place] 1,000 mL 00 :00 IV Medical Infusion, Branch ONCE, 1 dose, On 08/15/22 at 1630, STAT lisinopriL 2022-0 Yes [id number] 2.5mg Take 1 Univers 2.5 mg 1-01 tablet by ity of tablet 00:00: mouth in [place] the Medical morning. [place] lisinopriL 2022-0 Yes [id number] 2.5mg Take 1 Univers 2.5 mg 1-01 tablet by ity of tablet 00:00: mouth in [place] the Medical morning. [place] lisinopriL 3-0 Yes [id number] 2.5mg Take 1 Univers 2.5 mg 1-01 tablet by ity of tablet 00:00: mouth in [place] the Medical morning. [place] lisinopriL 3-0 Yes [id number] 2.5mg Take 1 Univers 2.5 mg 1-01 tablet by ity of tablet 00:00: mouth in [place] the Medical morning. [place] lisinopriL 3-0 Yes [id number] 2.5mg Take 1 Univers 2.5 mg 1-01 tablet by ity of tablet 00:00: mouth in [place] the Medical morning. [place] lisinopriL 3-0 Yes [id number] 2.5mg Take 1 Univers 2.5 mg 1-01 tablet by ity of tablet 00:00: mouth in [place] the Medical morning. [place] lisinopriL 2023-0 Yes [id number] 2.5mg Take 1 Univers 2.5 mg 1-01 tablet by ity of tablet 00:00: mouth in [place] the Medical morning. Branch lisinopriL 2023-0 Yes [id number] 2.5mg Take 1 Univers 2.5 mg 1-01 tablet by ity of tablet 00:00: mouth in [place] the Medical morning. Branch lisinopriL 2023-0 Yes [id number] 2.5mg Take 1 Univers 2.5 mg 1-01 tablet by ity of tablet 00:00: mouth in [place] the Medical morning. Branch lisinopriL 2023-0 Yes [id number] 2.5mg Take 1 Univers 2.5 mg 1-01 tablet by ity of tablet 00:00: mouth in [place] the Medical morning. Branch lisinopriL 2023-0 Yes [id number] 2.5mg Take 1 Univers 2.5 mg 1-01 tablet by ity of tablet 00:00: mouth in [place] the Medical morning. Branch lisinopriL 2023-0 Yes [id number] 2.5mg Take 1 Univers 2.5 mg 1-01 tablet by ity of tablet 00:00: mouth in [place] the Medical morning. Branch lisinopriL 2023-0 Yes [id number] 2.5mg Take 1 Univers 2.5 mg 1-01 tablet by ity of tablet 00:00: mouth in [place] the Medical morning. Branch lisinopriL 2023-0 Yes [id number] 2.5mg Take 1 Univers 2.5 mg 1-01 tablet by ity of tablet 00:00: mouth in [place] the Medical morning. Branch lisinopriL 2023-0 Yes [id number] 2.5mg Take 1 Univers 2.5 mg 1-01 tablet by ity of tablet 00:00: mouth in [place] the Medical morning. Branch lisinopriL 2023-0 Yes [id number] 2.5mg Take 1 Univers 2.5 mg 1-01 tablet by ity of tablet 00:00: mouth in [place] the Medical morning. Branch lisinopriL 2023-0 Yes [id number] 2.5mg Take 1 Univers 2.5 mg 1-01 tablet by ity of tablet 00:00: mouth in [place] the Medical morning. Branch lisinopriL 2023-0 Yes [id number] 2.5mg Take 1 Univers 2.5 mg 1-01 tablet by ity of tablet 00:00: mouth in [place] 00 the Medical morning. Branch lisinopriL 2023-0 Yes [id number] 2.5mg Take 1 Univers 2.5 mg 1-01 tablet by ity of tablet 00:00: mouth in [place] the Medical morning. Branch lisinopriL 2023-0 Yes [id number] 2.5mg Take 1 Univers 2.5 mg 1-01 tablet by ity of tablet 00:00: mouth in [place] 00 the Medical morning. Branch lisinopriL 2023-0 Yes [id number] 2.5mg Take 1 Univers 2.5 mg 1-01 tablet by ity of tablet 00:00: mouth in [place] the Medical morning. Branch lisinopriL 2023-0 Yes [id number] 2.5mg Take 1 Univers 2.5 mg 1-01 tablet by ity of tablet 00:00: mouth in [place] the Medical morning. Branch lisinopriL 2023-0 Yes [id number] 2.5mg Take 1 Univers 2.5 mg 1-01 tablet by ity of tablet 00:00: mouth in [place] the Medical morning. Branch lisinopriL 2023-0 Yes [id number] 2.5mg Take 1 Univers 2.5 mg 1-01 tablet by ity of tablet 00:00: mouth in [place] the Medical morning. Branch lisinopriL 2023-0 Yes [id number] 2.5mg Take 1 Univers 2.5 mg 1-01 tablet by ity of tablet 00:00: mouth in [place] the Medical morning. Branch lisinopriL 2023-0 Yes [id number] 2.5mg Take 1 Univers 2.5 mg 1-01 tablet by ity of tablet 00:00: mouth in [place] 00 the Medical morning. Branch lisinopriL 2023-0 Yes [id number] 2.5mg Take 1 Univers 2.5 mg 1-01 tablet by ity of tablet 00:00: mouth in [place] 00 the Medical morning. Branch lisinopriL 2023-0 Yes [id number] 2.5mg Take 1 Univers 2.5 mg 1-01 tablet by ity of tablet 00:00: mouth in [place] 00 the Medical morning. Branch lisinopriL 2023-0 Yes [id number] 2.5mg Take 1 Univers 2.5 mg 1-01 tablet by ity of tablet 00:00: mouth in [place] the Medical morning. Branch lisinopriL 2023-0 Yes [id number] 2.5mg Take 1 Univers 2.5 mg 1-01 tablet by ity of tablet 00:00: mouth in [place] the Medical morning. Branch lisinopriL 2023-0 Yes [id number] 2.5mg Take 1 Univers 2.5 mg 1-01 tablet by ity of tablet 00:00: mouth in [place] the Medical morning. Branch lisinopriL 2023-0 Yes [id number] 2.5mg Take 1 Univers 2.5 mg 1-01 tablet by ity of tablet 00:00: mouth in [place] the Medical morning. Branch lisinopriL 2023-0 Yes [id number] 2.5mg Take 1 Univers 2.5 mg 1-01 tablet by ity of tablet 00:00: mouth in [place] the Medical morning. Branch lisinopriL 2023-0 Yes [id number] 2.5mg Take 1 Univers 2.5 mg 1-01 tablet by ity of tablet 00:00: mouth in [place] the Medical morning. Branch lisinopriL 2023-0 Yes [id number] 2.5mg Take 1 Univers 2.5 mg 1-01 tablet by ity of tablet 00:00: mouth in [place] the Medical morning. Branch lisinopriL 2023-0 Yes [id number] 2.5mg Take 1 Univers 2.5 mg 1-01 tablet by ity of tablet 00:00: mouth in [place] the Medical morning. Branch lisinopriL 2023-0 Yes [id number] 2.5mg Take 1 Univers 2.5 mg 1-01 tablet by ity of tablet 00:00: mouth in [place] the Medical morning. Branch lisinopriL 2023-0 Yes [id number] 2.5mg Take 1 Univers 2.5 mg 1-01 tablet by ity of tablet 00:00: mouth in [place] the Medical morning. Branch lisinopriL 2023-0 Yes [id number] 2.5mg Take 1 Univers 2.5 mg 1-01 tablet by ity of tablet 00:00: mouth in [place] the Medical morning. Branch lisinopriL 2023-0 Yes [id number] 2.5mg Take 1 Univers 2.5 mg 1-01 tablet by ity of tablet 00:00: mouth in [place] 00 the Medical morning. [place] Nitrofurant 2021-07 No 100mg 100 mg, U nivers oin&Nit. 07-22 Oral, BID, ity of Macrocryst 02:00: 01:59 10 doses, [place] (MACROBID) 00 :00 First dose Med ical 100 mg on Sat Branch capsule 100 05/21/22 at mg 2000, Last dose on 05/26/22 at 0800, Routine
Reason for Anti-Infec tive: Empiric Therapy for Suspected Infection< br>Empiric Therapy Site: Urine
D uration of therapy: 72 hours ceFEPIme 2021-07 No 1000mg 1,000 mg, U nivers (MAXIPIME) 07-21 IV ity of 1,000 mg in 21:15: 21:34 [place], [place] NaCl 0.9% 00 :48 ONCE, 1 Medical (NS) 50 mL dose, On Bran h MINI-BAG Sat05/21/22 at 1515, Administer over 30 Minutes, 50 mL
Reas on for Anti-Infec tive: Documented Infection< br>Documen lester Infection Site: Urine<br&g t;Duration of Therapy: 7 days HYDROmorpho 2021-07 Yes 4mg Take 4 mg U nivers ne 4 mg 1-07 by mouth 3 ity of tablet 17:55: (three) [place] 40 times Medical daily as Branch needed. HYDROmorpho 2021-07 Yes 4mg Take 4 mg U nivers ne 4 mg 1-07 by mouth 3 ity of tablet 17:55: (three) [place] 40 times Medical daily as Branch needed. HYDROmorpho 2021-07 Yes 4mg Take 4 mg U nivers ne 4 mg 1-07 by mouth 3 ity of tablet 17:55: (three) [place] 40 times Medical daily as Branch needed. HYDROmorpho 2021-07 Yes 4mg Take 4 mg U nivers ne 4 mg 1-07 by mouth 3 ity of tablet 17:55: (three) [place] 40 times Medical daily as Branch needed. [...] Medical (HumaLOG) + on Sat Branch Fsbg 05/20/22 at Testing 2100, Until Discontinu ed, Routine FENTanyl PF 2021-07 No 75ug 75 mcg, Un ela (SUBLIMAZE 07-21 Slow IV ity o f (PF)) 01:15: 00:23 Push, [place] injection 00 :00 ONCE, 1 Medical 75 mcg dose, On Branch Momence 05/20/22 at 1915, Routine dextrose 2021-07 Yes 250mL 250 mL, IV Un ela 10% (D10W) 07-21 Infusion, ity of bolus 01:12: PRN - SEE [place] infusion 23 INSTRUCTIO Medic al 250 mL NS, Branch Administer over 60 Minutes, Other, If blood glucose is < or = 70 mg/dL and patient is unable to swallow or has mental status changes, Starting on Momence 05/20/22 at 191
If blood glucose is < or = [...] KIT) 20 Starting Medical injection 1 on [facility] mg 05/20/22 at 1912, Until Discontinu ed, SAHARA, Blood Glucose < or = 70 mg/dL and patient is unable to swallow or has mental changes. HYDROmorpho 2021-07 Yes 4mg 4 mg, Unive rs ne 07-21 Oral, ity of (DILAUDID) 01:08: Q6HPRN [place] tablet 4 mg 42 Starting Medi efrain on [facility] 05/20/22 at 1908, Until Discontinu ed, Routine, Pain (scale 7-10) proMETHazin 2021-07 Yes 12.5mg 12.5 mg, Univers e 07-21 Oral, ity of (PHENERGAN) 01:06: Q4HPRN [place] tablet 12.5 57 Starting Medi efrain mg on [facility] 05/20/22 at 1906, Until Discontinu ed, Routine, Nausea and Vomiting (N/V) acetaminoph 2021-07 Yes 650mg 650 mg, Un ela en 07-21 Oral, ity of (TYLENOL) 01:05: Q6HPRN, [place] tablet 650 57 Starting Medic al mg on Sun Branch 05/20/22 at 1905, Until Discontinu ed, Routine, Pain (scale 1-3) NaCl 0.9% 2021-07 No 1000mL at 999 Uni vers (NS) bolus 07-2107 mL/hr, ity of infusion 00:30: 00:35 1,000 mL, Tim [place] 1,000 mL 00 :00 IV Medical Infusion, Branch ONCE, 1 dose, On Momence 05/20/22 at 1830, STAT Nitrofurant 2021-07 No [id number] 100mg Take 1 Univers oin&Nit. 07-21 11-15 capsule by ity of Macrocryst 00:00: 05:59 mouth in [place] 100 mg 00 :00 the Medical capsule morning Branch and 1 capsule in the evening. Do all this for 7 days. NaCl 0.9% 2021-07 No 1000mL at 999 Uni vers (NS) bolus 07-20 mL/hr, ity of infusion 23:45: 00:36 1,000 mL, [place] 1,000 mL 00 :00 IV Medical Infusion, Branch ONCE, 1 dose, On Momence 05/20/22 at 1745, [place] FENTanyl PF 2021-07- No 75ug 75 mcg, Un ela (SUBLIMAZE 07-2006 Slow IV ity o f (PF)) 23:45: 23:19 Push, [place] injection 00 :00 ONCE, 1 Medical 75 mcg dose, On Branch Momence 05/20/22 at 1745, Routine iopamidol 2021-07- No [id number] 85mL 85 mL, Univers (ISOVUE 0-30 10-30 [...] at 2045, piggyback [place] cefdinir 2021-07 Yes [id number] 300mg Take 1 [place] ela 300 mg 0-29 capsule by ity of capsule 00:00: mouth [place] 00 every 12 Medical (twelve) Branch hours. cefdinir 2021-07 Yes [id number] 300mg Take 1 Un ela 300 mg 0-29 capsule by ity of capsule 00:00: mouth [place] 00 every 12 Medical (twelve) Branch hours. cefdinir 2021-07- No [id number] 300mg Take 1 U nivers 300 mg [...] mouth 3 ity of tablet 12:52: (three) [place] 28 times Medical daily as Branch needed. HYDROmorpho 2021-07 Yes 4mg Take 4 mg U nivers ne 4 mg 0-23 by mouth 3 ity of tablet 12:52: (three) [place] 28 times Medical daily as Branch needed. HYDROmorpho 2021-07- No .5mg 0.5 mg, Un ela ne 0-05-06 Slow IV ity of (DILAUDID) 03:15: 03:23 Push, [place] injection 00 :00 ONCE, 1 Medical 0.5 mg dose, On Branch 05/05/22 at 2215, Routine
Use approved by (Faculty): ADC PROVIDER HYDROmorpho 2021-07- No .5mg 0.5 mg, Un ela ne 05-05 Slow IV ity of (DILAUDID) 02:00: 02:00 Push, [place] injection 00 :00 ONCE, 1 Medical 0.5 mg dose, On Branch 05/04/22 at 2100, Routine
Use approved by (Faculty): ADC PROVIDER doxycycline 2021-07 No 100mg 100 mg, IV Univers (VIBRAMYCIN 05-05 Piggyback, i ty of ) 100 mg in 23:30: 20:05 Q12H ABX, [place] NaCl 0.9% 00 :47 10 doses, Medic al (NS) 100 mL First dose Br anch MINI-BAG on Sat05/04/22 at 1830, Last dose on Sat05/09/22 at 0630, Administer over 60 Minutes, 100 mL
Reas on for Anti-Infec tive: Empiric Therapy for Suspected Infection< br>Empiric Therapy Site: Skin / Soft tissue
Duration of therapy: 72 hours enoxaparin 2021-07 Yes 40mg 40 mg, Unive rs (LOVENOX) 0 Subcutaneo ity of injection 22:00: us, DAILY, [place] 40 mg 00 First dose Medical on Sat Branch 05/04/22 at 1700, Until Discontinu ed, Routine ceFEPIme 2021-07 No 2000mg 2,000 mg, U nivers (MAXIPIME) 05-09 IV ity of 2,000 mg in 21:00: 20:59 [facility] [place] NaCl 0.9% 00 :00 Q8H ABX, Medica [...] of e 0.125 % 18:30: dose on [place] (DAKIN'S Sat Medical SOLUTION) 05/04/22 Branch solution at 1330, Until Discontinu ed, Routine ceFEPIme 2021-07- No 2000mg 2,000 mg, U nivers (MAXIPIME) 005-04 IV ity of 2,000 mg in 13:15: 14:55 [place], [place] NaCl 0.9% 00 :00 ONCE, 1 Medical (NS) 50 mL dose, On [facility] h MINI-BAG Sat05/04/22 at 0815, Administer over [...] Yes 650mg 650 mg, Un ela en 0-21 Oral, ity of (TYLENOL) 12:08: Q6HPRN, [place] tablet 650 12 Starting Medic al mg on Fri Branch 05/04/22 at 0708, Until Discontinu ed, Routine, Pain (scale 1-3) HYDROmorpho 2021-07- No .5mg 0.5 mg, Un ela ne 0-21 10- Slow IV ity of (DILAUDID) 12:07: 16:23 Push, [place] injection 21 :00 Q4HPRN, 2 Medic al 0.5 mg doses, Branch Starting on Sat05/04/22 at 0707, Until Discontinu ed, Routine, Pain (scale 7-10)
U se approved by (Faculty): ADC PROVIDER proMETHazin 2021-07 Yes 12.5mg 12.5 mg, Univers e 0 IV ity of (PHENERGAN) 12:07: Piggyback, [place] 12.5 mg in 04 Q4HPRN, Medica l [...] Yes 650mg 650 mg, Un ela en 0-21 Oral, ity of (TYLENOL) 11:01: Q6HPRN, [place] tablet 650 26 Starting Medic al mg on Fri Branch 05/04/22 at 0601, Until Discontinu ed, Routine, Pain (scale 1-3) iopamidol 2021-07- No [id number] 100mL 100 mL, Univers (ISOVUE 05-04 Intravenou ity o f 370-500 mL) 08:00: 08:00 s, ONCE, 1 [place] injection 00 :00 dose, On Medica l 100 mL Fri Branch 05/04/22 at 0300, Routine ceFEPIme 2021-07 No 1000mg 1,000 mg, U nivers (MAXIPIME) 05-04 IV ity of injection 07:15: 07:36 [place], [place] 1,000 mg 00 :00 ONCE, 1 Medical dose, On Branch 05/04/22 at 0215, STAT
Re ason for Anti-Infec tive: Documented Infection< br>Documen lester Infection Site: Skin / Soft Tissue
Duration of Therapy: Other (see Comments) FENTanyl PF 2021-07 No 50ug 50 mcg, Un ela (SUBLIMAZE 05-04 Slow IV ity o f (PF)) 06:30: 06:12 Push, [place] injection 00 :00 ONCE, 1 Medical 50 mcg dose, On Branch 05/04/22 at 0130, [place] proMETHazin 2021-07 No 12.5mg 12.5 mg, Univers e 05-04 IV ity of (PHENERGAN) 06:15: 06:12 [place], [place] 12.5 mg in 00 :00 ONCE, 1 Medica l NaCl 0.9% dose, On Branch (NS) 50 mL Fri IV 05/04/22 piggyback at 0115, SAHARA insulin Yes 26U 26 Units, Unive rs glargine 8-14 Subcutaneo ity o f (LANTUS 02:00: us, [facility], [place] U-100) 00 First dose Medical injection (after Branch 26 Units last modificati on) on 02/24/22 at 2100, Until Discontinu ed, Routine insulin 2021- No 24U 24 Units, Univ ers glargine 8-12 08-12 Subcutaneo ity of (LANTUS 20:38: 20:43 [place], ONCE, [place] U-100) 00 :00 1 dose, On Medical injection Fri Branch 24 Units 02/23/22 at 1545, [place] sennosides- Yes 1{tbl} 1 tablet, Univers docusate 02-23 Oral, ity of sodium 14:00: DAILY, [place] (SENOKOT-S) 00 First dose Me dical 8.6-50 mg on Sat per tablet 02/23/22 at 1 tablet 0900, Until Discontinu ed, Routine polyethylen Yes 17g 17 g, Unive rs e glycol 02-23 Oral, ity of 3350 powder 14:00: DAILY, [place] 17 g 00 First dose Medical on Sat Branch 02/23/22 at 0900, Until Discontinu ed, Routine insulin NPH 2021- No 16U 16 Units, Univers (HUMULIN N) 02-23 Subcutaneo i ty of injection 14:00: 17:23 us, [place] 16 Units 00 :36 QAM+HS, Medical First dose Branch (after last modificati on) on Sat02/23/22 at 0900, Until Discontinu ed, Routine Sliding [...] Medical (after Branch last modificati on) on Sat02/22/22 at 2100, Until Discontinu ed, Routine repaglinide Yes [id number] .5mg Take 1 Univers 0.5 mg 02-23 tablet by ity of tablet 00:00: mouth in [place] 00 the Medical morning Branch and 1 tablet at noon and 1 tablet in the evening. Take before meals. sodium Yes [id number] Apply to Un ela hypochlorit 8-12 area(s) ity o f e 0.25% 00:00: daily. [place] solution 00 Medical Branch repaglinide 2022-0 Yes [id number] .5mg Take 1 Univers 0.5 mg 8-12 tablet by ity of tablet 00:00: mouth in [place] [address] the Medical morning [place] and 1 tablet at noon and 1 tablet in the evening. Take before meals. sodium 2022-0 Yes [id number] Apply to Un ela hypochlorit 8-12 area(s) ity o f e 0.25% 00:00: daily. [facility] 00 Medical Branch repaglinide 2022-0 Yes [id number] .5mg Take 1 Univers 0.5 mg 8-12 tablet by ity of tablet 00:00: mouth in [place] [address] the [facility] morning [place] and 1 tablet at noon and 1 tablet in the evening. Take before meals. sodium 2022-0 Yes [id number] Apply to [place]a hypochlorit 8-12 area(s) ity o f e 0.25% 00:00: daily. [facility] 00 Medical Branch repaglinide 2022-0 Yes [id number] .5mg Take 1 Univers 0.5 mg 8-12 tablet by ity of tablet 00:00: mouth in [place] [address] the [facility] morning [place] and 1 tablet at noon and 1 tablet in the evening. Take before meals. sodium 2022-0 Yes [id number] Apply to Un ela hypochlorit 8-12 area(s) ity o f e 0.25% 00:00: daily. [place] solution 00 Medical Branch repaglinide 2022-0 Yes [id number] .5mg Take 1 Univers 0.5 mg 8-12 tablet by ity of tablet 00:00: mouth in [place] [address] the [facility] morning [place] and 1 tablet at noon and 1 tablet in the evening. Take before meals. sodium 2022-0 Yes [id number] Apply to Un ela hypochlorit 8-12 area(s) ity o f e 0.25% 00:00: daily. [place] [facility] 00 Medical Branch repaglinide 2022-0 Yes [id number] .5mg Take 1 Univers 0.5 mg 8-12 tablet by ity of tablet 00:00: mouth in [place] [address] the Medical morning [place] and 1 tablet at noon and 1 tablet in the evening. Take before meals. sodium 2022-0 Yes [id number] Apply to Un ela hypochlorit 8-12 area(s) ity o f e 0.25% 00:00: daily. [address] Branch repaglinide 2022-0 Yes [id number] .5mg Take 1 Univers 0.5 mg 8-12 tablet by ity of tablet 00:00: mouth in [place] [address] the [facility] morning [place] and 1 tablet at noon and 1 tablet in the evening. Take before meals. sodium 2022-0 Yes [id number] Apply to [facility] [place]a hypochlorit 8-12 area(s) ity o f e 0.25% 00:00: daily. [address] repaglinide 2022-0 Yes [id number] .5mg Take 1 Univers 0.5 mg 8-12 tablet by ity of tablet 00:00: mouth in [address] and 1 tablet at noon and 1 tablet in the evening. Take before meals. sodium 2022-0 Yes [id number] Apply to [facility] ela hypochlorit 8-12 area(s) ity o f e 0.25% 00:00: daily. [address] Branch repaglinide 2022-0 Yes [id number] .5mg Take 1 Univers 0.5 mg 8-12 tablet by ity of tablet 00:00: mouth in [address] morning [place] and 1 tablet at noon and 1 tablet in the evening. Take before meals. sodium 2022-0 Yes [id number] Apply to Un ela hypochlorit 8-12 area(s) ity o f e 0.25% 00:00: daily. [address] Branch repaglinide 2022-0 Yes [id number] .5mg Take 1 Univers 0.5 mg 8-12 tablet by ity of tablet 00:00: mouth in [address] morning [place] and 1 tablet at noon and 1 tablet in the evening. Take before meals. sodium 2022-0 Yes [id number] Apply to Un ela hypochlorit 8-12 area(s) ity o f e 0.25% 00:00: daily. [place] solution Medical Branch repaglinide 2021-0 Yes [id number] .5mg Take 1 Univers 0.5 mg 8-12 tablet by ity of tablet 00:00: mouth in [place] [address] the [facility] morning [place] and 1 tablet at noon and 1 tablet in the evening. Take before meals. sodium 2021-0 Yes [id number] Apply to Un ela hypochlorit 8-12 area(s) ity o f e 0.25% 00:00: daily. [place] solution [facility] Branch repaglinide 2021-0 Yes [id number] .5mg Take 1 Univers 0.5 mg 8-12 tablet by ity of tablet 00:00: mouth in [address] morning [place] and 1 tablet at noon and 1 tablet in the evening. Take before meals. sodium 2021-0 Yes [id number] Apply to [facility] hypochlorit 8-12 area(s) ity o f e 0.25% 00:00: daily. [place] solution 00 Medical Branch sodium 2-0 Yes [id number] Apply to [facility] [place] hypochlorit 8-12 area(s) ity o f e 0.25% 00:00: daily. [place] solution Medical Branch sodium 2-0 Yes [id number] Apply to [facility] hypochlorit 8-12 area(s) ity o f e 0.25% 00:00: daily. [place] solution 00 Medical Branch sodium 2-0 Yes [id number] Apply to [facility] hypochlorit 8-12 area(s) ity o f e 0.25% 00:00: daily. [place] solution 00 Medical Branch sodium 2022-0 Yes [id number] Apply to [facility] hypochlorit 8-12 area(s) ity o f e 0.25% 00:00: daily. [place] solution 00 Medical Branch sodium 2022-0 Yes [id number] Apply to [facility] hypochlorit 8-12 area(s) ity o f e 0.25% 00:00: daily. [place] solution 00 Medical Branch sodium 2-0 Yes [id number] Apply to [facility] [place] hypochlorit 8-12 area(s) ity o f e 0.25% 00:00: daily. [place] solution 00 Medical Branch sodium 2022-0 Yes [id number] Apply to [facility] [place] hypochlorit 8-12 area(s) ity o f e 0.25% 00:00: daily. [place] solution 00 Medical Branch sodium 2022-0 Yes [id number] Apply to [facility] hypochlorit 8-12 area(s) ity o f e 0.25% 00:00: daily. [place] solution 00 Medical Branch sodium 2022-0 Yes [id number] Apply to [facility] [place] hypochlorit 8-12 area(s) ity o f e 0.25% 00:00: daily. [place] solution 00 Medical Branch sodium 2022-0 Yes [id number] Apply to [facility] hypochlorit 8-12 area(s) ity o f e 0.25% 00:00: daily. [place] solution 00 Medical Branch sodium 2022-0 Yes [id number] Apply to [facility] [place] hypochlorit 8-12 area(s) ity o f e 0.25% 00:00: daily. [place] solution 00 Medical Branch sodium 2022-0 Yes [id number] Apply to [facility] hypochlorit 8-12 area(s) ity o f e 0.25% 00:00: daily. [place] solution 00 Medical Branch sodium 2022-0 Yes [id number] Apply to [facility] hypochlorit 8-12 area(s) ity o f e 0.25% 00:00: daily. [place] solution 00 Medical Branch sodium 2022-0 Yes [id number] Apply to [facility] [place] hypochlorit 8-12 area(s) ity o f e 0.25% 00:00: daily. [place] solution 00 Medical Branch sodium 2022-0 Yes [id number] Apply to [facility] hypochlorit 8-12 area(s) ity o f e 0.25% 00:00: daily. [place] solution 00 Medical Branch sodium 2022-0 Yes [id number] Apply to [facility] hypochlorit 8-12 area(s) ity o f e 0.25% 00:00: daily. [place] solution 00 Medical Branch sodium 2022-0 Yes [id number] Apply to [facility] [place] hypochlorit 8-12 area(s) ity o f e 0.25% 00:00: daily. [place] solution 00 Medical Branch sodium 2022-0 Yes [id number] Apply to [facility] [place] hypochlorit 8-12 area(s) ity o f e 0.25% 00:00: daily. [place] solution 00 Medical Branch sodium 2022-0 Yes [id number] Apply to [facility] [place] hypochlorit 8-12 area(s) ity o f e 0.25% 00:00: daily. [place] solution 00 Medical Branch sodium 2022-0 Yes [id number] Apply to [facility] [place] hypochlorit 8-12 area(s) ity o f e 0.25% 00:00: daily. [place] solution 00 Medical Branch sodium 2022-0 Yes [id number] Apply to [facility] hypochlorit 8-12 area(s) ity o f e 0.25% 00:00: daily. [place] solution 00 Medical Branch sodium 2022-0 Yes [id number] Apply to [place] hypochlorit 8-12 area(s) ity o f e 0.25% 00:00: daily. [place] solution 00 Medical Branch sodium 2022-0 Yes [id number] Apply to [place] hypochlorit 8-12 area(s) ity o f e 0.25% 00:00: daily. [place] solution 00 Medical Branch sodium 2022-0 Yes [id number] Apply to [facility] [place] hypochlorit 8-12 area(s) ity o f e 0.25% 00:00: daily. [place] solution 00 Medical Branch sodium 2022-0 Yes [id number] Apply to [facility] [place] hypochlorit 8-12 area(s) ity o f e 0.25% 00:00: daily. [place] solution 00 Medical Branch sodium 2022-0 Yes [id number] Apply to Univers hypochlorit 8-12 105 area(s) ity o f e 0.25% 00:00: daily. [place] solution 00 Medical Branch sodium 2022-0 Yes [id number] Apply to Univers hypochlorit 8-12 105 area(s) ity o f e 0.25% 00:00: daily. [place] solution 00 Medical Branch sodium 2022-0 Yes [id number] Apply to Univers hypochlorit 8-12 105 area(s) ity o f e 0.25% 00:00: daily. [place] solution 00 Medical Branch sodium 2022-0 Yes [id number] Apply to Univers hypochlorit 8-12 105 area(s) ity o f e 0.25% 00:00: daily. [place] solution 00 Medical Branch sodium 2022-0 Yes [id number] Apply to Univers hypochlorit 8-12 105 area(s) ity o f e 0.25% 00:00: daily. [place] solution 00 Medical Branch sodium 2022-0 Yes [id number] Apply to Univers hypochlorit 8-12 105 area(s) ity o f e 0.25% 00:00: daily. [place] solution 00 Medical Branch sodium 2022-0 Yes [id number] Apply to Univers hypochlorit 8-12 105 area(s) ity o f e 0.25% 00:00: daily. [place] solution 00 Medical Branch sodium 2022-0 Yes [id number] Apply to Univers hypochlorit 8-12 105 area(s) ity o f e 0.25% 00:00: daily. [place] solution 00 Medical Branch sodium 2022-0 Yes [id number] Apply to Univers hypochlorit 8-12 105 area(s) ity o f e 0.25% 00:00: daily. [place] solution 00 Medical Branch sodium 2022-0 Yes [id number] Apply to Univers hypochlorit 8-12 105 area(s) ity o f e 0.25% 00:00: daily. [place] solution 00 Medical Branch sodium 2022-0 Yes [id number] Apply to Univers hypochlorit 8-12 105 area(s) ity o f e 0.25% 00:00: daily. [place] solution 00 Medical Branch sodium 2022-0 Yes [id number] Apply to Univers hypochlorit 8-12 105 area(s) ity o f e 0.25% 00:00: daily. [place] solution 00 Medical Branch sodium 2022-0 Yes [id number] Apply to Univers hypochlorit 8-12 105 area(s) ity o f e 0.25% 00:00: daily. [place] solution 00 Medical Branch sodium 2022-0 Yes [id number] Apply to Univers hypochlorit 8-12 105 area(s) ity o f e 0.25% 00:00: daily. [place] solution 00 Medical Branch sodium 2022-0 Yes [id number] Apply to Univers hypochlorit 8-12 105 area(s) ity o f e 0.25% 00:00: daily. [place] solution 00 Medical Branch sodium 2021-0 Yes [id number] Apply to Univers hypochlorit 8-12 105 area(s) ity o f e 0.25% 00:00: daily. [place] solution 00 Medical Branch sodium 2021-0 Yes [id number] Apply to Univers hypochlorit 8-12 105 area(s) ity o f e 0.25% 00:00: daily. [place] solution 00 Medical Branch sodium 2021-0 Yes [id number] Apply to Univers hypochlorit 8-12 105 area(s) ity o f e 0.25% 00:00: daily. [place] solution 00 Medical Branch sodium 2021-0 Yes [id number] Apply to Univers hypochlorit 8-12 105 area(s) ity o f e 0.25% 00:00: daily. [place] solution 00 Medical Branch repaglinide 2021-0 2021- No [id number] .5mg Take 1 Univers 0.5 mg 02-2327 tablet by ity of tablet 00:00: 00:00 mouth in [place] 00 :00 the Medical morning Branch and 1 tablet at noon and 1 tablet in the evening. Take before meals. repaglinide 2021-0 2021- No [id number] .5mg Take 1 Univers 0.5 mg 827 tablet by ity of tablet 00:00: 00:00 mouth in [place] 00 :00 the Medical morning Branch and 1 tablet at noon and 1 tablet in the evening. Take before meals. repaglinide 2021-0 2021- No [id number] .5mg Take 1 Univers 0.5 mg 8-27 tablet by ity of tablet 00:00: 00:00 mouth in [place] 00 :00 the Medical morning Branch and 1 tablet at noon and 1 tablet in the evening. Take before meals. apixaban 5 2021-0 2022- No 5mg Take 1 Univ ers mg tablet 02-2312 tablet by ity of 00:00: 04:59 mouth in [place] 00 :00 the Medical morning Branch and 1 tablet in the evening. Do all this for 30 days. Indication s: Symtomatic Superficia l Vein thrombosis insulin 2021- No [id number] 24U inject 24 Univers glargine 02-23 Units ity of 100 unit/mL 00:00: 04:59 under the [place] injection 00 :00 skin at [facility] for 30 days. metFORMIN 2021-2021- No [id number] 500mg Take 1 Univers 500 mg 02-23 tablet by ity of tablet 00:00: 04:59 mouth in [place] 00 :00 the [facility] morning [place] and 1 tablet in the evening. Take with meals. Do all this for 30 days. dulaglutide 2021- No [id number] .75mg inject 1 Univers (TRULICITY) 02-23 Pen under it y of 0.75 mg/0.5 00:00: 04:59 the skin [place] mL PnIj 00 :00 weekly for Medica l 30 days. Branch apixaban 5 2021- No 5mg Take 1 Univ ers mg tablet 02-23 tablet by ity of 00:00: 04:59 mouth in [place] 00 :00 the [facility] morning [place] and 1 tablet in the evening. Do all this for 30 days. Indication s: Symtomatic Superficia l Vein thrombosis insulin 2021- No [id number] 24U inject 24 Univers glargine 02-23 Units ity of 100 unit/mL 00:00: 04:59 under the [place] injection 00 :00 skin [facility] for 30 days. metFORMIN 2021-2021- No [id number] 500mg Take 1 Univers 500 mg 02-23 tablet by ity of tablet 00:00: 04:59 mouth in [place] 00 :00 the [facility] morning [place] and 1 tablet in the evening. Take with meals. Do all this for 30 days. dulaglutide 2021-2021- No [id number] .75mg inject 1 Univers (TRULICITY) 02-23 Pen under it y of 0.75 mg/0.5 00:00: 04:59 the skin [place] mL PnIj 00 :00 weekly for Medica l 30 days. Branch apixaban 5 2021-2021- No 5mg Take 1 Univ ers mg tablet 02-23 tablet by ity of 00:00: 04:59 mouth in [place] 00 :00 the [facility] morning [place] and 1 tablet in the evening. Do all this for 30 days. Indication s: Symtomatic Superficia l Vein thrombosis insulin 2021- No [id number] 24U inject 24 Univers glargine 02-23 Units ity of 100 unit/mL 00:00: 04:59 under the [place] injection 00 :00 skin [facility] for 30 days. metFORMIN 2021-2021- No [id number] 500mg Take 1 Univers 500 mg 02-23 tablet by ity of tablet 00:00: 04:59 mouth in [place] 00 :00 the [facility] and 1 tablet in the evening. Take with meals. Do all this for 30 days. dulaglutide 2021-2021- No [id number] .75mg inject 1 Univers (TRULICITY) 02-23 Pen under it y of 0.75 mg/0.5 00:00: 04:59 the skin [place] mL PnIj 00 :00 weekly for Medica l 30 days. Branch apixaban 5 2021- No 5mg Take 1 Univ ers mg tablet 02-23 tablet by ity of 00:00: 04:59 mouth in [place] 00 :00 the [facility] and 1 tablet in the evening. Do all this for 30 days. Indication s: Symtomatic Superficia l Vein thrombosis insulin 2021- No [id number] 24U inject 24 Univers glargine 02-23 Units ity of 100 unit/mL 00:00: 04:59 under the [place] injection 00 :00 skin [facility] for 30 days. metFORMIN 2021-2021- No [id number] 500mg Take 1 Univers 500 mg 02-23 tablet by ity of tablet 00:00: 04:59 mouth in [place] 00 :00 [facility] and 1 tablet in the evening. Take with meals. Do all this for 30 days. dulaglutide 2021- No [id number] .75mg inject 1 Univers (TRULICITY) 02-23 Pen under it y of 0.75 mg/0.5 00:00: 04:59 the skin [place] mL PnIj 00 :00 weekly for Medica l 30 days. Branch linezolid 2021- No [id number] 600mg Take 1 Univers 600 mg 8-12 08-27 tablet by ity of tablet 00:00: 04:59 mouth [place] 00 :00 every 12 Medical (twelve) Branch hours for 14 days. fluconazole 2021-2021- No [id number] 400mg Take 2 Univers 200 mg 8-12 08-27 tablets by ity of tablet 00:00: 04:59 mouth in [place] 00 :00 the Medical morning Branch for 14 days. ciprofloxac 2021- No [id number] 500mg Take 2 Univers in HCl 250 8-06 21-27 tablets by it y of mg tablet 00:00: 04:59 mouth in [place] 00 :00 the Medical morning Branch and 2 tablets in the evening. Do all this for 14 days. linezolid 2021- No [id number] 600mg Take 1 Univers 600 mg 8-12 08-27 tablet by ity of tablet 00:00: 04:59 mouth [place] 00 :00 every 12 Medical ([facility]) Branch hours for 14 days. fluconazole 2021-2021- No [id number] 400mg Take 2 Univers 200 mg 8-12 08-27 tablets by ity of tablet 00:00: 04:59 mouth in [place] 00 :00 the [facility] Branch for 14 days. ciprofloxac 2021- No [id number] 500mg Take 2 Univers in HCl 250 8- 08-27 tablets by it y of mg tablet 00:00: 04:59 mouth in [place] 00 :00 the Medical morning Branch and 2 tablets in the evening. Do all this for 14 days. linezolid 2021-2021- No [id number] 600mg Take 1 Univers 600 mg 8-12 08-27 tablet by ity of tablet 00:00: 04:59 mouth [place] 00 :00 every 12 Medical (twelve) Branch hours for 14 days. fluconazole 2021-0 2021- No [id number] 400mg Take 2 Univers 200 mg 8-12 08-27 tablets by ity of tablet 00:00: 04:59 mouth in [place] 00 :00 the [facility] morning Branch for 14 days. ciprofloxac 2021-2021- No [id number] 500mg Take 2 Univers in HCl 250 8-27 tablets by it y of mg tablet 00:00: 04:59 mouth in [place] [facility] as 00 :00 the [facility] and 2 tablets in the evening. Do all this for 14 days. linezolid 2021-2021- No [id number] 600mg Take 1 Univers 600 mg 8-06 21-27 tablet by ity of tablet 00:00: 04:59 mouth [place] 00 :00 every 12 Medical (twelve) Branch hours for 14 days. fluconazole 2021-2021- No [id number] 400mg Take 2 Univers 200 mg 8-27 tablets by ity of tablet 00:00: 04:59 mouth in [place] 00 :00 the [facility] for 14 days. ciprofloxac 2021-2021- No [id number] 500mg Take 2 Univers in HCl 250 8-27 tablets by it y of mg tablet 00:00: 04:59 mouth in [place] [facility] as 00 :00 [facility] and 2 tablets in the evening. Do all this for 14 days. gabapentin 2021-2021- No [id number] 300mg Take 1 Univers 300 mg 8- 08-20 capsule by ity of capsule 00:00: 04:59 mouth in [place] 00 :00 [facility] and 1 capsule at noon and 1 capsule in the evening. Do all this for 7 days. gabapentin 2021-2021- No [id number] 300mg Take 1 Univers 300 mg 8-12 08-20 capsule by ity of capsule 00:00: 04:59 mouth in [place] 00 :00 [facility] and 1 capsule at noon and 1 capsule in the evening. Do all this for 7 days. gabapentin 2021-2021- No [id number] 300mg Take 1 Univers 300 mg 8-12 08-20 capsule by ity of capsule 00:00: 04:59 mouth in [place] 00 :00 [facility] and 1 capsule at noon and 1 capsule in the evening. Do all this for 7 days. gabapentin 2021-0 2021- No [id number] 300mg Take 1 Univers 300 mg 8-12 08-20 capsule by ity of capsule 00:00: 04:59 mouth in [place] 00 :00 the [facility] morning Branch and 1 capsule at noon and 1 capsule in the evening. Do all this for 7 days. sodium No [id number] Apply to U nivers hypochlorit 02-23 area(s) ity of e 0.25% 00:00: 00:00 daily. [place] solution 00 :00 [facility] repaglinide No [id number] .5mg Take 1 Univers 0.5 mg 02-23 tablet by ity of tablet 00:00: 00:00 mouth in [place] 00 :00 the [facility] Branch and 1 tablet at noon and 1 tablet in the evening. Take before meals. Do all this for 30 days. Sliding Subcutaneo Uni vers Scale 02-22 , TID ity of Insulin - 22:00: 12:34 MEALS+HS, [place] Lispro 00 :51 First dose Medical (HumaLOG) + (after Branch Fsbg last Testing modificati on) on [facility] 02/22/22 at 1700, Until Discontinu ed, Routine acetaminoph 0 Yes 1000mg 1,000 mg, Univers en 811 Oral, Q8H, ity of (TYLENOL) 19:00: First dose [place] tablet 00 on [facility] 1,000 mg 02/22/[address] [facility] h 1400, Until Discontinu ed, Routine [...] Branch Fsbg last Testing modificati on) on [facility] 02/22/22 at 1200, Until Discontinu ed, Routine insulin NPH Yes 24U 24 Units, U nivers (HUMULIN N) 02-22 Subcutaneo it y of injection 14:00: us, QAM, [place] 24 Units 00 First dose Medic al (after Branch last modificati on) on [facility] 02/22/22 at 0900, Until Discontinu ed, Routine insulin NPH 2021- No 20U 20 Units, Univers (HUMULIN N) 02-22 Subcutaneo i ty of injection 14:00: 19:31 us, QAM, [place] 20 Units 00 :02 First dose Medic al (after Branch last modificati on) on [facility] 02/22/22 at 0900, Until Discontinu ed, Routine insulin Yes 5U 5 Units, Univer s lispro 02-22 Subcutaneo ity of (human) 13:45: us, TID [place] (HumaLOG 00 MEALS, Medical U-100) First dose Branch injection 5 (after Units last modificati on) on [facility] 02/22/22 at 0845, Until Discontinu ed, Routine apixaban Yes 5mg 5 mg, Univers (ELIQUIS) 02-22 Oral, BID, ity of tablet 5 mg 13:00: First dose [place] 00 on [facility] Medical 02/22/22 at Branch 0800, Until Discontinu ed, Routine
Indicatio ns: DVT/PE celecoxib Yes 100mg 100 mg, Univ ers (CELEBREX) 02-22 Oral, BID ity of capsule 100 13:00: MEALS, [place] mg 00 First dose Medical on [facility] Branch 02/22/22 at 0800, Until Discontinu ed, Routine gabapentin 0 Yes 300mg 300 mg, Uni vers (NEURONTIN) 02-22 Oral, TID, it y of capsule 300 13:00: First dose [place] mg 00 on [facility] Medical 02/22/22 at Branch 0800, Until Discontinu ed, Routine HYDROmorpho 0 Yes 4mg 4 mg, Unive rs ne 02-22 Oral, TID, ity of (DILAUDID) 13:00: First dose [place] tablet 4 mg 00 (after Medica l last Branch modificati on) on [facility] 02/22/22 at 0800, Until Discontinu ed, Routine linezolid No 600mg 600 mg, Uni vers (ZYVOX) [...] Subcutaneo ity of (human) 22:00: us, TID [place] (HumaLOG 00 MEALS, Medical U-100) First dose [...] Yes 4mg 4 mg, Unive rs ne 8- Oral, ity of (DILAUDID) 15:00: TIDPRN, [place] [...] 00 :03 First dose Medic al (after last modificati on) on Sat02/21/22 at 0900, Until Discontinu ed, Routine Sliding Yes Subcutaneo Univ ers Scale 8-10 us, TID ity of Insulin - 13:00: MEALS+HS, [place] Lispro 00 First dose Medical (HumaLOG) + (after Fsbg last Testing modificati on) on Sat02/21/22 at 0800, Until Discontinu ed, Routine Sliding No Subcutaneo Uni vers Scale 02-21 us, [...] dose, On Sat02/20/22 at 2200, Routine Sliding No Subcutaneo Uni vers Scale 02-20 us, TID ity of Insulin - 22:00: 12:44 MEALS+HS, [place] Lispro 00 :50 First dose Medical (HumaLOG) + (after Fsbg last Testing modificati on) on Sat02/20/22 [...] [place] (SENSORCAIN 00 :05 02/20/22 at [facility] ica E [facility]) 0.5 1200, Branch % (5 mg/mL) Intra-op [...] Routine insulin 2021- No 14U 14 Units, [facility] ers lispro 02-20 Subcutaneo ity of (human) [...] Routine HYDROmorpho 2021- No 4mg 4 mg, [facility] ne 02-19 Oral, ity of (DILAUDID) [...] Routine insulin 2021- No 15U 15 Units, [facility] lispro 02-19 Subcutaneo ity of (human) [...] 1mg/kg 123 mg (1 Univers e (XERAVA) 02-19- mg/kg ?123 it y of 123 mg [...] 7-10) insulin 2021- No 17U 17 Units, Univ ers lispro [...] Routine HYDROmorpho 2021- No 4mg 4 mg, [facility] ers ne 02-17 Oral, ity of (DILAUDID) [...] SAHARA insulin 2021- No 12U 12 Units, [facility] lispro 02-17 Subcutaneo ity of (human) 14:00: [...] No .2mg 0.2 mg, [facility] ela ne 02-17-06 Slow IV ity of (DILAUDID) 01:49: 02:17 Push, PRN, [place] injection 34 :00 1 dose, Medical 0.2 mg Starting Branch on Sat02/16/22 at 2048, Until Sat02/16/22 at 2116, Routine, Pain (scale 7-10)
U se approved by (Faculty): [facility] KCL 20 2021-0 2021- No 40meq 40 mEq, Univer s mEq/15 mL 8-05 08-05 Oral, ity of solution 40 23:30: 22:58 ONCE, 1 [place] mEq 00 :00 dose, On Medical Sat02/16/22 Branch at 1830, Routine Sliding Subcutaneo Uni vers Scale 02-16 us, Q4H, ity of Insulin - 22:15: 12:23 First dose [place] Lispro 00 :48 on Fri Medical (HumaLOG) + 02/16/22 at [facility] Fsbg 1715, Testing Until Discontinu ed, [...] Sliding 2021- No Subcutaneo Uni vers Scale 02-1605 us, Q4H, ity of Insulin - 01:00: 21:37 First dose [place] lispro 00 :09 on [facility] Medical (humaLOG) + 02/15/22 at [facility] Fsbg 1999, Testing Until Discontinu ed, Routine meropenem 2021- No 1000mg 1,000 mg, Univers (MERREM) 02-16 IV ity of 1,000 mg in 00:15: 02:14 [place], [place] NaCl 0.9% 00 :44 Q8H ABX, [...] 1 Medical 0.2 mg dose, On Branch [facility] 02/15/22 at 1900, Routine
Use approved by (Faculty): [facility] HYDROmorpho 2021- No .2mg 0.2 mg, Un ela ne 02-15 Slow IV ity of (DILAUDID) 19:30: 18:59 Push, [place] injection 00 :00 ONCE, 1 Medical 0.2 mg dose, On Branch [facility] 02/15/22 at 1430, Routine
Use approved by (Faculty): [facility] cholestyram 2021- No Topical [facility] ela ine-nystati 02-15 (Apply To it y of n-zinc 18:29: 12:46 Affected [place] oxide 12 :35 Areas), Medical ointment PRN, Branch 1:1:1 Starting (COMPOUNDED on [facility] ) 02/15/22 at 1329, Until 02/19/22 at 0746, Routine, Wound care, Cuts, abrasions, and skin ulcers iopamidol 2021- No [id number] 60mL 60 mL, Univers (ISOVUE 02-15 Intravenou ity o f 370-500 mL) 17:25: 05:25 s, ONCE, 1 [place] injection 00 :00 dose, On Medica l 60 mL [facility] 02/15/22 Branch at 1230, Routine meropenem 2021- No 1000mg 1,000 mg, Univers (MERREM) 02-15 IV ity of 1,000 mg in 16:45: 20:14 [place], [place] NaCl 0.9% 00 :00 ONCE, 1 Medical (NS) 50 mL dose, On Branc h MINI-BAG [facility] 02/15/22 at 1145, Administer over 30 Minutes, 50 mL
R estricted use approved by: [facility] 8TH FLOOR
R keegan for Anti-Infec tive: Documented Infection< br>Documen lester Infection Site: Urine
D uration of Therapy: 7 days pantoprazol 2022-0 Yes 40mg 40 mg, Univ ers e 8 Oral, ity of (PROTONIX) 14:00: DAILY, [place] EC tablet 00 First dose Medi efrain 40 mg on [facility] Branch 02/15/22 at 0900, Until Discontinu ed, Routine
Indicatio n for use: None of the above pantoprazol 0 Yes 40mg 40 mg, Univ ers e 02-15 Oral, ity of (PROTONIX) 14:00: DAILY, [place] EC tablet 00 First dose Medi efrain 40 mg on [facility] Branch 02/15/22 at 0900, Until Discontinu ed, Routine
Indicatio n for use: None of the above heparin Yes 5000U 5,000 Univers (porcine) 02-15 Units, ity of injection 13:00: Subcutaneo [place] 5,000 Units 00 us, Q12H, Med ical First dose Branch on [facility] 02/15/22 at 0800, Until Discontinu ed, Routine heparin No 5000U 5,000 Univers (porcine) 02-15 08-10 Units, ity of injection 13:00: 21:57 Subcutaneo [place] 5,000 Units 00 :33 us, Q12H, Med ical First dose Branch on [facility] 02/15/22 at 0800, Until Discontinu ed, Routine NaCl 0.9% Yes 10mL 10 mL, Univer s (NS) 804 Slow IV ity of injection 11:28: Push, PRN, [place] 10 mL 11 Starting Medical on [facility] Branch 02/15/22 at 0628, Until Discontinu ed, Routine, line maintenanc e lidocaine Yes 5mL 5 mL, Univers 1% (PF) 02-15 Subcutaneo ity of (XYLOCAINE) 11:28: us, PRN, [place] injection 5 11 Starting Medi efrain mL on [facility] Branch 02/15/22 at 0628, Until Discontinu ed, Routine, Local anesthesia NaCl 0.9% 0 Yes 10mL 10 mL, Univer s (NS) 804 Slow IV ity of injection 11:28: Push, PRN, [place] 10 mL 11 Starting Medical on [facility] Branch 02/15/22 at 0628, Until Discontinu ed, Routine, line maintenanc e lidocaine Yes 5mL 5 mL, Univers 1% (PF) 02-15 Subcutaneo ity of (XYLOCAINE) 11:28: us, PRN, [place] injection 5 11 Starting Medi efrain mL on [facility] Branch 02/15/22 at 0628, Until Discontinu ed, Routine, Local anesthesia NaCl 0.9% 2021- No 1000mL at 999 Uni vers (NS) bolus 02-15-04 mL/hr, ity of infusion 07:30: 06:55 1,000 mL, [place] 1,000 mL 00 :00 IV Medical Infusion, Branch ONCE, 1 dose, On [facility] 02/15/22 at 0230, [place] FENTanyl PF 2021- No 50ug 50 mcg, Un ela (SUBLIMAZE 02-15 Slow IV ity o f (PF)) 06:45: 06:01 [facility], [place] injection 00 :00 ONCE, 1 Medical 50 mcg dose, On Branch [facility] 02/15/22 at 0145, Routine cefTRIAXone 2021- No 1000mg 1,000 mg, Univers (ROCEPHIN) 02-15 IV ity of 1,000 mg in 05:30: 06:00 [place], [place] NaCl 0.9% 00 :00 ONCE, 1 Medical (NS) 50 mL dose, On [facility] h MINI-BAG [facility] 02/15/22 at 0030, [...] 00 :00 dose, On Medical NaCl 0.9% 02/14/22 Bran ch (NS) 50 mL at 2315, IV [place] piggyback proMETHazin 2021- No 12.5mg 12.5 mg, Univers e 02-10 0730 IV ity of (PHENERGAN) 21:30: 22:14 [place], [place] 12.5 mg in 00 :00 ONCE, 1 [...] Subcutaneo ity of (human) 17:00: us, TID [place] (HumaLOG 00 MEALS, Medical U-100) First dose [...] Discontinu ed, Routine insulin NPH 2021- No [id number] 50U inject 50 Univers and regular 7-30 08-30 Units ity of human 70-30 00:00: 04:59 under the [place] 100 unit/mL 00 :00 skin every Me dical (70-30) morning Branch injection and evening for 30 days. proMETHazin 2021- No [id number] 12.5mg Insert 1 Univers e 12.5 mg 7-30 08-30 Suppositor ity of suppository 00:00: 04:59 y into [place] 00 :00 rectum Medical every 6 Branch (six) hours as needed for Nausea and Vomiting (N/V) for up to 30 days. proMETHazin 2021- No [id number] 12.5mg Take 0.5 Univers e 25 mg 7-30 08-30 tablets by ity o f tablet 00:00: 04:59 mouth [place] 00 :00 every 4 Medical (four) Branch hours as needed for Nausea and Vomiting (N/V) for up to 30 days. insulin NPH 2021- No [id number] 50U inject 50 Univers and regular 7-30 08-30 Units ity of human 70-30 00:00: 04:59 under the [place] 100 unit/mL 00 :00 skin every Me dical (70-30) morning Branch injection and evening for 30 days. proMETHazin 2021- No [id number] 12.5mg Insert 1 Univers e 12.5 mg 7-30 08-30 Suppositor ity of suppository 00:00: 04:59 y into [facility] as 00 :00 rectum Medical every 6 Branch (six) hours as needed for Nausea and Vomiting (N/V) for up to 30 days. proMETHazin 2021- No [id number] 12.5mg Take 0.5 Univers e 25 mg 7-30 08-30 tablets by ity o f tablet 00:00: 04:59 mouth [place] 00 :00 every 4 Medical (four) Branch hours as needed for Nausea and Vomiting (N/V) for up to 30 days. insulin NPH 2021- No [id number] 50U inject 50 Univers and regular 7-30 08-30 Units ity of human 70-30 00:00: 04:59 under the [place] 100 unit/mL 00 :00 skin every Me dical (70-30) morning Branch injection and evening for 30 days. proMETHazin 2021- No [id number] 12.5mg Insert 1 Univers e 12.5 mg 7-30 08-30 Suppositor ity of suppository 00:00: 04:59 y into Tim as 00 :00 rectum Medical every 6 Branch (six) hours as needed for Nausea and Vomiting (N/V) for up to 30 days. proMETHazin 2021- No [id number] 12.5mg Take 0.5 Univers e 25 mg 7-30 08-30 tablets by ity o f tablet 00:00: 04:59 mouth [place] 00 :00 every 4 Medical (four) Branch hours as needed for Nausea and Vomiting (N/V) for up to 30 days. insulin NPH 2021- No [id number] 50U inject 50 Univers and regular 7-30 08-30 Units ity of human 70-30 00:00: 04:59 under the [place] 100 unit/mL 00 :00 skin every Me dical (70-30) morning Branch injection and evening for 30 days. proMETHazin 2021- No [id number] 12.5mg Insert 1 Univers e 12.5 mg 7-30 08-30 Suppositor ity of suppository 00:00: 04:59 y into Itm as 00 :00 rectum Medical every 6 Branch (six) hours as needed for Nausea and Vomiting (N/V) for up to 30 days. proMETHazin 2021- No [id number] 12.5mg Take 0.5 Univers e 25 mg 7-30 08-30 tablets by ity o f tablet 00:00: 04:59 mouth [place] 00 :00 every 4 Medical (four) Branch hours as needed for Nausea and Vomiting (N/V) for up to 30 days. insulin NPH 2021- No [id number] 50U inject 50 Univers and regular 7-30 08-30 Units ity of human 70-30 00:00: 04:59 under the [place] 100 unit/mL 00 :00 skin every Me dical (70-30) morning Branch injection and evening for 30 days. proMETHazin 2021- No [id number] 12.5mg Insert 1 Univers e 12.5 mg 7-30 08-30 Suppositor ity of suppository 00:00: 04:59 y into [place] as 00 :00 rectum Medical every 6 Branch (six) hours as needed for Nausea and Vomiting (N/V) for up to 30 days. proMETHazin 2021- No [id number] 12.5mg Take 0.5 Univers e 25 mg 7-30 08-30 tablets by ity o f tablet 00:00: 04:59 mouth [place] 00 :00 every 4 Medical (four) Branch hours as needed for Nausea and Vomiting (N/V) for up to 30 days. proMETHazin 2021- No [id number] 12.5mg Insert 1 Univers e 12.5 mg 7-30 08-30 Suppositor ity of suppository 00:00: 04:59 y into [place] as 00 :00 rectum Medical every 6 Branch (six) hours as needed for Nausea and Vomiting (N/V) for up to 30 days. proMETHazin 2021- No [id number] 12.5mg Take 0.5 Univers e 25 mg 7-30 08-30 tablets by ity o f tablet 00:00: 04:59 mouth [place] 00 :00 every 4 Medical (four) Branch hours as needed for Nausea and Vomiting (N/V) for up to 30 days. proMETHazin 2021- No [id number] 12.5mg Insert 1 Univers e 12.5 mg 7-30 08-30 Suppositor ity of suppository 00:00: 04:59 y into [place] 00 :00 rectum Medical every 6 Branch (six) hours as needed for Nausea and Vomiting (N/V) for up to 30 days. proMETHazin 2021- No [id number] 12.5mg Take 0.5 Univers e 25 mg 7-30 08-30 tablets by ity o f tablet 00:00: 04:59 mouth [place] 00 :00 every 4 Medical (four) Branch hours as needed for Nausea and Vomiting (N/V) for up to 30 days. proMETHazin 2021- No [id number] 12.5mg Insert 1 Univers e 12.5 mg 7-30 08-30 Suppositor ity of suppository 00:00: 04:59 y into [place] 00 :00 rectum Medical every 6 Branch (six) hours as needed for Nausea and Vomiting (N/V) for up to 30 days. proMETHazin 2021- No [id number] 12.5mg Take 0.5 Univers e 25 mg 7-30 08-30 tablets by ity o f tablet 00:00: 04:59 mouth [place] 00 :00 every 4 Medical (four) Branch hours as needed for Nausea and Vomiting (N/V) for up to 30 days. proMETHazin 2021- No [id number] 12.5mg Insert 1 Univers e 12.5 mg 7-30 08-30 Suppositor ity of suppository 00:00: 04:59 y into [place] 00 :00 rectum Medical every 6 Branch (six) hours as needed for Nausea and Vomiting (N/V) for up to 30 days. proMETHazin 2021- No [id number] 12.5mg Take 0.5 Univers e 25 mg 7-30 08-30 tablets by ity o f tablet 00:00: 04:59 mouth [place] 00 :00 every 4 Medical (four) Branch hours as needed for Nausea and Vomiting (N/V) for up to 30 days. insulin NPH 2021- No [id number] 50U inject 50 Univers and regular 7-30 08-12 Units ity of human 70-30 00:00: 00:00 under the [place] 100 unit/mL 00 :00 skin every Me dical (70-30) morning Branch injection and evening for 30 days. insulin 2021- No 5U 5 Units, Unive rs lispro 02-09 07-30 Subcutaneo ity of (human) 17:00: 14:45 us, [...] 34 Starting Medi efrain mL on Sat [place] 02/08/22 at 2004, Until Discontinu ed, Routine, Local anesthesia nystatin Yes Topical, Unive rs (NYSTOP) 02-09 BID, First ity o f powder 01:00: dose on 00 [facility] Medical 02/08/22 at Branch 2000, Until Discontinu ed, Routine Sliding Yes Subcutaneo Univ ers Scale 02-08 us, TID ity of Insulin - 22:00: MEALS+HS, [place] Lispro 00 First dose Medical (HumaLOG) + (after Branch Fsbg last Testing modificati on) on Sat02/08/22 at 1700, Until Discontinu ed, Routine insulin 2021- No 3U 3 Units, Unive rs lispro 02-08 Subcutaneo ity of (human) 22:00: 14:02 us, TID [place] (HumaLOG 00 :21 MEALS, Medical U-100) First dose Branch injection 3 on [facility] Units 02/08/22 at 1700, Until Discontinu ed, [...] 07 Starting Medi efrain tablet 1 on [facility] Branch tablet 02/08/22 at 1454, Until Discontinu ed, Routine, Pain (scale 4-6) HYDROcodone Yes 1{tbl} 1 tablet, Univers -acetaminop 02-08 Oral, ity of hen (NORCO) 19:47: Q6HPRN, [place] 10-325 mg 33 Starting Medica l tablet 1 on [facility] Branch tablet 02/08/22 at 1447, Until Discontinu [...] 02-08 IV ity of (PHENERGAN) 02:15: 01:35 [place], [place] 12.5 mg in 00 :00 ONCE, 1 Medica l NaCl 0.9% dose, On Branch (NS) 50 mL Wed IV 02/07/22 at piggyback 211, Routine insulin No 10U 10 Units, [facility] lispro 02-08 Subcutaneo ity of (human) 01:30: 00:44 [place], ONCE, [place] (HumaLOG 00 :00 1 dose, On Medic al U-100) Wed Branch injection 02/07/22 at 10 Units 2030, SAHARA ertapenem No 1000mg 1,000 mg, Univers (INVANZ) 02-08 [...] 2021- No Subcutaneo Uni vers Scale 02-08 07-28 us, Q3H, ity of Insulin - 01:00: [...] on Sat Medical 1,000 mg 02/07/[address] [facility] h 1615, Until Discontinu ed, Routine [...] 57 Starting Medica l 25 mL on Wed Branch 02/07/22 at 1419, Until Discontinu ed, [...] dose, On Sat02/07/22 at 1315, STAT potassium No 20meq 20 mEq, IV Univers chloride 20 02-07 Piggyback, i ty of mEq/100 mL 17:45: 21:20 Q1H, 4 [place] (KCL) 20 00 :00 doses, Medical mEq/100 mL First dose Bra [facility] RTU IVPB 20 on Sat mEq [...] 1927, 1,000 mL, at 200 mL/hr KCL No IV Univers (POTASSIUM 02-07 Infusion, ity [...] 200mg at 100 Un ela (DIFLUCAN) 02-07 mL/hr, IV ity of [place] 13:45: 00:25 [...] maximum allowed dose, contact prescriber .
potassium No 10meq 10 mEq, IV Univers chloride [...] Until Sat02/07/22 at 0620, SAHARA FENTanyl PF No 50ug 50 mcg, [...] Branch ONCE, 1 dose, On 02/06/22 at 2200, STAT insulin 2021- No [...] 1 Medical 50 mcg dose, On Branch [facility] 02/06/22 at 2030, Routine NaCl 0.9% 2021- No 1000mL at 999 Uni vers (NS) bolus 02-07 mL/hr, ity of infusion 00:30: 02:09 1,000 mL, [place] 1,000 mL 00 :00 IV Medical Infusion, Branch ONCE, 1 dose, On 02/06/22 at 1930, STAT iopamidol 2021- No [id number] 65mL 65 mL, Univers (ISOVUE 01-27 [id number] Intravenou ity of 370-500 mL) 02:29: 02:45 s, ONCE, 1 [place] injection 00 :00 dose, On Medica l 65 mL Fri [place] 01/26/22 at 2145, Routine FENTanyl PF 2021- No 150ug 150 mcg, Univers (SUBLIMAZE 01-27 Slow IV ity o f (PF)) 01:32: 01:44 Push, [place] injection 00 :00 ONCE, 1 Medical 150 mcg dose, On Branch 01/26/22 at 2045, Routine FENTanyl PF 2021-2021- No 50ug 50 mcg, Un ela (SUBLIMAZE 01-27 Slow IV ity o f (PF)) 00:30: 23:32 Push, [place] injection 00 :00 ONCE, 1 Medical 50 mcg dose, On Branch 01/26/22 at 1930, Routine insulin 2021- No 10U 10 Units, Univ ers regular 01-27 Subcutaneo ity o f human 00:30: 23:28 us, ONCE, [place] (HUMULIN R) 00 :00 1 dose, On Me dical injection Fri Branch 10 Units 01/26/22 at 1930, Routine clindamycin 2021- No [id number] 600mg Take 2 Univers 300 mg 01-26 [id number] capsules ity of capsule 00:00: 04:59 by mouth 4 Tim as 00 :00 (four) Medical times [place] daily for 7 days. clindamycin 2021- No [id number] 600mg Take 2 Univers 300 mg 01-26 [id number] capsules ity of capsule 00:00: 04:59 by mouth 4 Tim as 00 :00 (four) Medical times [place] daily for 7 days. insulin NPH 2021- No 8U 8 Units, U nivers and regular 01-17-06 Subcutaneo i ty of human 70-30 12:30: 11:30 us, ONCE, [place] (70-30 00 :00 1 dose, On Medical U-100 01/17/22 Branch INSULIN) at 0730, 100 unit/mL SAHARA (70-30) injection 8 Units insulin Yes [id number] 20U inject 20 U nivers glargine 7-02 Units ity of 100 unit/mL 00:00: under the [place] injection 00 skin Medical daily. Branch insulin Yes [id number] 20U inject 20 U nivers glargine 7-02 Units ity of 100 unit/mL 00:00: under the [place] injection 00 skin Medical daily. Branch insulin Yes [id number] 20U inject 20 U nivers glargine 7-02 Units ity of 100 unit/mL 00:00: under the [place] injection 00 skin Medical daily. Branch insulin Yes [id number] 20U inject 20 U nivers glargine 7-02 Units ity of 100 unit/mL 00:00: under the [place] injection 00 skin Medical daily. Branch insulin 2021- No [id number] 20U inject 20 Univers glargine 01-13 07-30 Units ity of 100 unit/mL 00:00: 00:00 under the [place] injection 00 :00 skin Medical daily. Branch insulin 2021- No [id number] 20U inject 20 Univers glargine 01-13 07-30 [...] Until Discontinu ed, Routine insulin 2021- No [id number] 26U inject 26 Univers lispro, 01-12 08- Units ity of human, 100 00:00: 04:59 under the [place] unit/mL 00 :00 skin 3 Medical injection (three) Branch times daily before meals for 30 days. insulin 2021- No [id number] 26U inject 26 Univers lispro, 01-12 08-01 Units ity of human, 100 00:00: 04:59 under the [place] unit/mL 00 :00 skin 3 Medical injection (three) Branch times daily before meals for 30 days. insulin 2021- No [id number] 26U inject 26 Univers lispro, 01-12 08-01 Units ity of human, 100 00:00: 04:59 under the [place] unit/mL 00 :00 skin 3 Medical injection (three) Branch times daily before meals for 30 days. insulin 2021- No [id number] 26U inject 26 Univers lispro, 01-12 08- Units ity of human, 100 00:00: 04:59 under the [place] unit/mL 00 :00 skin 3 Medical injection (three) Branch times daily before meals for 30 days. insulin 2021- No [id number] 26U inject 26 Univers lispro, 01-12 07-30 Units ity of human, 100 00:00: 00:00 under the [place] unit/mL 00 :00 skin 3 Medical injection (three) Branch times daily before meals for 30 days. insulin 2021- No [id number] 26U inject 26 Univers lispro, 01-12 07-30 Units ity of human, 100 00:00: 00:00 under the [place] unit/mL 00 :00 skin 3 Medical injection (three) Branch times daily before meals for 30 days. insulin Yes 26U 26 Units, Unive rs lispro 6-30 Subcutaneo ity of (human) 22:15: us, [place], [place] (HumaLOG 00 First dose Medic al U-100) (after Branch injection last 26 Units modificati on) on [place] 01/11/22 at 1715, Until Discontinu ed, Routine insulin No 22U 22 Units, Univ ers lispro 01-11 06-30 Subcutaneo ity of (human) 16:30: 21:36 us, TIDAC, [place] (HumaLOG 00 :36 First dose Medic al U-100) (after Branch injection last 22 Units modificati on) on [place] 01/11/22 at 1130, Until Discontinu ed, Routine insulin No 10U 10 Units, Univ ers glargine 01-11-30 Subcutaneo ity of (LANTUS 14:00: 17:40 us, DAILY, [place] U-100) 00 :01 First dose Medical injection on Sat Branch 10 Units 01/11/22 at 0900, Until Discontinu ed, Routine insulin Yes 52U 52 Units, Unive rs glargine -30 Subcutaneo ity o f (LANTUS 02:00: us, [facility], [place] U-100) 00 First dose Medical injection on Sat Branch 52 Units 01/10/22 at 2100, Until Discontinu ed, Routine enoxaparin Yes 40mg 40 mg, Unive rs (LOVENOX) - Subcutaneo ity of injection 22:00: us, DAILY, [...] ity of 1,000 mg in 13:00: Piggy[place], [place] NaCl 0.9% 00 Q24H ABX, Medic al (NS) 50 mL First dose Bra [facility] MINI-BAG on Sat01/10/22 at 0800, Until Discontinu ed, Administer over 30 Minutes, 50 mL
Reas on for Anti-Infec tive: Documented Infection< br>Documen lester Infection Site: Urine
D uration of Therapy: 7 days Sliding Subcutaneo Uni vers Scale 01-10 us, TID ity of Insulin - 13:00: 15:19 MEALS+HS, [place] Lispro 00 :51 First dose Medical (HumaLOG) + on Sat Branch Fsbg 01/10/22 at Testing 0800, Until Discontinu ed, Routine insulin 15U 15 Units, [facility] [...] (scale 7-10)
U se approved by (Faculty): [facility] PROVIDER NaCl 0.9% 2021- No 1000mL at [...] ity of bolus 10:53: PRN - SEE [place] infusion 43 INSTRUCTIO Medic al 250 mL [...] 01-10 Oral, ity of (TYLENOL) 10:52: Q6HPRN, [place] tablet 650 33 Starting Medic al mg [...] On Branch Sat01/10/22 at 0330, Routine insulin No 10U 10 Units, Univ ers regular 01-10 Slow IV ity of human 07:00: 05:53 Push, [place] (HUMULIN R) 00 :00 ONCE, 1 Medic al injection dose, On 10 Units Sat01/10/22 at 0200, STAT FENTanyl [...] IV ity of human 04:00: 03:48 [place], [place] (HUMULIN R) 00 :00 ONCE, 1 Medic al injection dose, On Branch 10 Units e 01/09/22 at 2300, STAT amLODIPine 2021-2021- No [id number] 10mg Take 1 Univers 10 mg 6-26 07-30 tablet by ity of tablet 00:00: 00:00 mouth [place] 00 :00 daily for Medical 30 days. Branch amLODIPine 2021- No [id number] 10mg Take 1 Univers 10 mg 6-26 07-30 tablet by ity of tablet 00:00: 00:00 mouth [place] 00 :00 daily for Medical 30 days. Branch amLODIPine 2021- No [id number] 10mg Take 1 Univers 10 mg 6-26 07-27 tablet by ity of tablet 00:00: 04:59 mouth [place] 00 :00 daily for Medical 30 days. Branch amLODIPine 2021- No [id number] 10mg Take 1 Univers 10 mg 6-26 07-27 tablet by ity of tablet 00:00: 04:59 mouth [place] 00 :00 daily for Medical 30 days. Branch amLODIPine 2021- No [id number] 10mg Take 1 Univers 10 mg 6-26 07-27 tablet by ity of tablet 00:00: 04:59 mouth [place] 00 :00 daily for Medical 30 days. Branch amLODIPine 2021- No [id number] 10mg Take 1 Univers 10 mg 6-26 07-27 tablet by ity of tablet 00:00: 04:59 mouth [place] 00 :00 daily for Medical 30 days. Branch amLODIPine 2021- No [id number] 10mg Take 1 Univers 10 mg 6-26 07-27 tablet by ity of tablet 00:00: 04:59 mouth [place] 00 :00 daily for Medical 30 days. Branch amLODIPine 2021- No [id number] 10mg Take 1 Univers 10 mg 6-26 07-27 tablet by ity of tablet 00:00: 04:59 mouth [place] 00 :00 daily for Medical 30 days. Branch amLODIPine 2021-2021- No [id number] 10mg Take 1 Univers 10 mg 01-07 tablet by ity of tablet 00:00: 04:59 mouth [place] 00 :00 daily for Medical 30 days. [place] HYDROmorpho No .5mg 0.5 mg, Un ela ne 01-06 Slow IV ity of (DILAUDID) 18:00: 17:11 [place], [place] injection 00 :00 ONCE, 1 Medical 0.5 mg dose, On Branch [facility] 01/06/22 at 1300, Routine
Use approved by (Faculty): [facility] PROVIDER cefTRIAXone Yes 1000mg 1,000 mg, Univers (ROCEPHIN) 01-06 IV ity of 1,000 mg in 15:00: [place], [place] NaCl 0.9% 00 Q24H ABX, Medic al (NS) 50 mL First dose Bra [facility] MINI-BAG on [facility] 01/06/22 at 1000, Until Discontinu ed, Administer over 30 Minutes, 50 mL
Reas on for Anti-Infec tive: Documented Infection< br>Documen lester Infection Site: Urine
D uration of Therapy: 7 days fluconazole Yes 200mg 200 mg, Un ela (DIFLUCAN) 01-06 Oral, ity of tablet 200 14:00: DAILY, [place] mg 00 First dose Medical on [facility] 01/06/22 at 0900, Until Discontinu ed, SAHARA
Re ason for Anti-Infec tive: Documented Infection< br>Documen lester Infection Site: Urine
D uration of Therapy: 7 days Sliding Yes Subcutaneo Univ ers Scale 01-06 us, TID ity of Insulin - 13:00: MEALS+HS, [place] Lispro 00 First dose Medical (HumaLOG) + on [facility] Fsbg 01/06/22 at Testing 0800, Until Discontinu ed, Routine hydromorpho 2021- No 4ug Take 4 mcg Univers ne HCl 01-06 by mouth ity of (HYDROMORPH 11:55: 00:00 every 12 [place] ONE ORAL) 19 :00 (twelve) Medica l hours. [place] insulin 2021- No 10U 10 Units, Univ ers lispro 01-06 Subcutaneo ity of (human) 07:00: 06:53 us, ONCE, [place] (HumaLOG 00 :00 1 dose, On [...] ity of bolus 05:50: PRN - SEE [place] infusion 51 INSTRUCTIO Medic al 250 mL [...] Subcutaneo ity o f (LANTUS 02:00: us, [facility], [place] U-100) 00 First dose Medical injection on Sat Branch 52 Units 01/05/22 at 2100, Until Discontinu ed, Routine Sliding 2021- No Subcutaneo Uni vers Scale 01-06 us, TID ity of Insulin - 02:00: 05:50 MEALS+HS, [place] Lispro 00 :40 First dose Medical (HumaLOG) + on Sat Branch Fsbg 01/05/22 at Testing 2100, Until Discontinu ed, Routine ciprofloxac 2021- No [id number] 500mg Take 1 Univers in HCl 500 -05 02- tablet by ity of mg tablet 00:00: 04:59 mouth [place] 00 :00 every 12 Medical (twelve) Branch hours for 10 days. ciprofloxac 2021-2021- No [id number] 500mg Take 1 Univers in HCl 500 -05 02- tablet by ity of mg tablet 00:00: 04:59 mouth [place] 00 :00 every 12 Medical (twelve) Branch hours for 10 days. ciprofloxac 2021- No [id number] 500mg Take 1 Univers in HCl 500 01-06- tablet by ity of mg tablet 00:00: 04:59 mouth [place] 00 :00 every 12 Medical (twelve) Branch hours for 10 days. HYDROmorpho 2021-2021- No [id number] 4mg Take 1 Uni vers ne 4 mg -05 02- tablet by ity of tablet 00:00: 04:59 mouth [place] 00 :00 every 12 Medical ([facility]) Branch hours for 7 days. Indication s: [...] 1 Uni vers ne 4 mg -05 02- tablet by ity of tablet 00:00: 04:59 mouth [place] 00 :00 every 12 Medical (twelve) Branch hours for 7 days. Indication s: acute pain ciprofloxac 2021- No [id number] 500mg Take 1 Univers in HCl 500 01-06- tablet by ity of mg tablet 00:00: 00:00 mouth [place] 00 :00 every 12 Medical (twelve) Branch hours for 10 days. NaCl 0.9% 2021- No 1000mL at 150 Uni vers (NS) bolus 01-05-24 mL/hr, ity of infusion 23:15: 23:38 1,000 mL, Tim as 1,000 mL 00 :00 IV [facility] [place] ONCE, 1 dose, On Sat01/05/22 at 1815, STAT HYDROmorpho 2021-0 2021- No 1mg 1 mg, Slow Univers ne 01-0524 IV Push, ity of (DILAUDID) 22:15: 21:46 [...] KIT) 44 Starting Medical injection 1 on 01/05/22 at 1657, Until Discontinu ed, SAHARA, Blood Glucose < or = 70 mg/dL and patient is unable to swallow or has mental changes. HYDROmorpho 2021-0 Yes 4mg 4 mg, Unive rs ne 01-05 Oral, ity of (DILAUDID) 13:00: Q12H, [place] tablet 4 mg 00 First dose Me dical on Sat01/05/22 at 0800, Until Discontinu ed insulin 2021-0 Yes 15U 15 Units, Unive rs lispro -24 Subcutaneo ity of (human) 12:30: us, T[place] s (HumaLOG 00 First dose Medic al U-100) on Fri Branch injection 01/05/22 at 15 Units 0730, Until Discontinu ed, Routine amLODIPine Yes 10mg 10 mg, Unive rs (NORVASC) 01-05 Oral, ity of tablet 10 08:45: DAILY, [place] mg 00 First dose Medical on Sat Branch 01/05/22 at 0345, Until Discontinu ed, Routine ertapenem 2021- No 1000mg 1,000 mg, Univers (INVANZ) 01-05 IV ity of 1,000 mg in 08:45: 13:51 [place], [place] NaCl 0.9% 00 :26 Q24H ABX, Medic al (NS) 50 mL First dose Bra sdh MINI-BAG on Sat01/05/22 at 0345, Until Discontinu [...] Routine, Pain (scale 1-3) iopamidol 2021- No [id number] 100mL 100 mL, Univers (ISOVUE 01-05 Intravenou ity o f 370-500 mL) 06:15: 05:05 s, ONCE, 1 [place] injection 00 :00 dose, On Medica l 100 mL Fri Branch 01/05/22 at 0115, Routine insulin 2021- No 10U 10 Units, Univ ers regular 01-0524 IV Push, ity of human 06:00: 05:20 ONCE, 1 [place] (HUMULIN R) 00 :00 dose, On Medi efrain injection Fri Branch 10 Units 01/05/22 at 0100, SAHRAA FENTanyl PF 2021- No 50ug 50 mcg, Un ela (SUBLIMAZE 01-05 Slow IV ity o f (PF)) 05:45: 04:47 Push, [place] injection 00 :00 ONCE, 1 Medical 50 mcg dose, On Branch 01/05/22 at 0045, STAT FENTanyl PF 2021- No 50ug 50 mcg, Un ela (SUBLIMAZE 01-05 Slow IV ity o f (PF)) 04:15: 04:00 Push, [place] injection 00 :00 ONCE, 1 Medical 50 [...] 6-10 Oral, ity of (MAG-OX 14:00: DAILY, [place] 400) tablet 00 First dose Me dical [...] Until Discontinu ed, Routine insulin 2021-0 Yes [id number] 52U inject 52 U nivers glargine 6-10 Units ity of 100 unit/mL 00:00: under the [place] injection 00 skin at Medical bedtime. Branch insulin 2021-0 Yes [id number] 52U inject 52 U nivers glargine 6-10 Units ity of 100 unit/mL 00:00: under the [place] injection 00 skin at Medical bedtime. Branch insulin 2021-0 Yes [id number] 52U inject 52 U nivers glargine 6-10 Units ity of 100 unit/mL 00:00: under the [place] injection 00 skin at Medical bedtime. Branch insulin 2021-0 Yes [id number] 52U inject 52 U nivers glargine 6-10 Units ity of 100 unit/mL 00:00: under the [place] injection 00 skin at Medical bedtime. Branch insulin 2021-0 Yes [id number] 52U inject 52 U nivers glargine 6-10 Units ity of 100 unit/mL 00:00: under the [place] injection 00 skin at Medical bedtime. Branch insulin 2021-0 Yes [id number] 52U inject 52 U nivers glargine 6-10 Units ity of 100 unit/mL 00:00: under the [place] injection 00 skin at Medical bedtime. Branch insulin 2021-0 Yes [id number] 52U inject 52 U nivers glargine 6-10 Units ity of 100 unit/mL 00:00: under the [place] injection 00 skin at Medical bedtime. Branch insulin 2021-0 Yes [id number] 52U inject 52 U nivers glargine 6-10 Units ity of 100 unit/mL 00:00: under the [place] injection 00 skin at Medical bedtime. Branch insulin 2021-0 2021- No [id number] 52U inject 52 Univers glargine 6-10 07-30 Units ity of 100 unit/mL 00:00: 00:00 under the [place] injection 00 :00 skin at Medical bedtime. Branch insulin [id number] No [id number] 52U inject 52 Univers glargine 12-2230 Units ity of 100 unit/mL 00:00: 00:00 under the [place] injection 00 :00 skin at Medical bedtime. Branch Insulin 2021- No [id number] Use as Uni vers Safety 12-22 directed ity of [place], 00:00: 04:59 [place] Disp, 29 00 :00 Medical gauge x Branch 3/16" Ndle Insulin 2021- No [id number] Use as Uni vers Safety 12-22 directed ity of [place], 00:00: 04:59 [place] Disp, 29 00 :00 Medical gauge x Branch 3/16" Ndle Insulin 2021- No [id number] Use as Uni vers Safety 12-22 directed ity of [place], 00:00: 04:59 [place] Disp, 29 00 :00 Medical gauge x Branch 3/16" Ndle Insulin 2021- No [id number] Use as Uni vers Safety 12-22 directed ity of [place], 00:00: 04:59 [place] Disp, 29 00 :00 Medical gauge x Branch 3/16" Ndle Insulin 2021- No [id number] Use as Uni vers Safety 12-22 directed ity of [place], 00:00: 04:59 [place] Disp, 29 00 :00 Medical gauge x Branch 3/16" Ndle Insulin 2021- No [id number] Use as Uni vers Safety 12-22 directed ity of [place], 00:00: 04:59 [place] Disp, 29 00 :00 Medical gauge x Branch 3/16" Ndle Insulin 2021- No [id number] Use as Uni vers Safety 12-22 directed ity of [place], 00:00: 04:59 [place] Disp, 29 00 :00 Medical gauge x Branch 3/16" Ndle fluconazole 2021- No [id number] 200mg Take 1 Univers 200 mg 12-22 tablet by ity of tablet 00:00: 04:59 mouth [place] 00 :00 daily for Medical 12 days. Branch magnesium 2021- No 4g 4 g, IV Univ ers sulfate in 12-21 Piggyback, it y of water 4 20:45: 21:58 ONCE, 1 [place] gram/50 mL 00 :00 dose, On Medic al (8 %) IV [place] 12/21/21 Bran h Piggyback 4 at 1545, g Routine [...] at 2100, Until Discontinu ed, Routine HYDROmorpho 202- No .5mg 0.5 mg, Un ela ne 12-20 0609 Slow IV ity of (DILAUDID) 16:28: 19:33 Push, [place] injection 03 :06 Q4HPRN, Medical 0.5 mg Starting Branch on Sat12/20/21 at 1128, Until [place] 12/21/21 at 1433, Routine, Pain (scale 7-10)
U se approved by (Faculty): [employer] PROVIDER fluconazole 0 Yes 200mg 200 mg, Un ela (DIFLUCAN) 12-20 Oral, ity of tablet 200 14:45: DAILY, [place] mg 00 First dose Medical on Sat Branch 12/20/21 at 0945, Until Discontinu ed, SAHARA
Re ason for Anti-Infec tive: Empiric Therapy for Suspected Infection< br>Empiric Therapy Site: Urine
D uration of therapy: 72 hours enoxaparin 2021-0 Yes 40mg 40 mg, Unive rs (LOVENOX) 12-20 Subcutaneo ity of injection 14:00: [place], DAILY, [place] 40 mg 00 First dose Medical on Sat Branch 12/20/21 at 0900, Until Discontinu ed, Routine tamsulosin 0 Yes .4mg 0.4 mg, Univ ers (FLOMAX) 12-20 Oral, ity of capsule 0.4 14:00: DAILY[place] 00 First dose Medical on Sat12/20/21 at 0900, Until Discontinu ed, Routine insulin No 10U 10 Units, [facility] glargine 12-20 Subcutaneo ity of (LANTUS 12:00: [...] PROVIDER HYDROmorpho 2021- No 4mg 4 mg, [facility] ne 12-20 Oral, ity of (DILAUDID) 08:40: 16:28 Q30QCSH, [place] tablet 4 mg 04 :14 [...] PROVIDER aztreonam 2021- No 1000mg 1,000 mg, [facility] (AZACTAM) 12-20 IV ity of 1,000 mg in 05:30: 16:58 Piggyback, [place] NaCl 0.9% 00 :42 Q8H ABX, Medica [...] On Branch Sat12/19/21 at 2030, Routine insulin 2022-0 2022- No .1U/kg 13.7 Units U nivers regular 12-20-08 (rounded ity of human 01:15: 01:51 from 13.74 [place] (HUMULIN R) 00 :00 Units = Medic [...] at 999 Uni vers (NS) IV 12-19 mL/hr, ity of infusion 23:47: 00:53 Intravenou [place] 1,000 mL 00 :00 s, ONCE, 1 Medic al dose, On Branch Sat12/19/21 at 1900, SAHARA hydromorpho 0 Yes 4ug Take 4 mcg Univers ne HCl 6-07 by mouth ity of (HYDROMORPH 23:17: every 12 [place] ONE ORAL) 17 (twelve) Medica l hours. Branch hydromorpho 0 Yes 4ug Take 4 mcg [...] times daily before meals. insulin 2021- No [id number] 15U inject 15 Univers lispro, 12-18 07-30 Units ity of human, 100 00:00: 00:00 under [place] unit/mL 00 :00 skin 3 Medical injection (three) Branch times daily before meals. insulin 2021- No [id number] 15U inject 15 Univers lispro, 12-18 07-30 Units ity of human, 100 00:00: 00:00 [place] unit/mL 00 :00 skin 3 Medical injection (three) Branch times daily before meals. insulin 2021- No [id number] 52U inject 52 Univers glargine 12-18 06-10 [...] (scale 7-10)
U se approved by (Faculty): [facility] PROVIDER insulin Yes .4U/kg/ 52 [...] (scale 7-10)
U se approved by (Faculty): [facility] PROVIDER Sliding Yes Subcutaneo [facility] ers Scale 6-04 us, Q4H, ity of Insulin - 17:00: First dose [place] lispro 00 on [facility] Medical (humaLOG) + 12/16/21 at [facility] Fsbg 1200, Testing Until Discontinu ed, [...] mg, [facility] ers e 6-04 Oral, ity of (PHENERGAN) 15:09: Q6HPRN, [place] tablet 25 59 Starting Medica l mg on Sat Branch 12/16/21 at 1009, Until Discontinu ed, Routine, Nausea and Vomiting (N/V) HYDROmorpho 2021- No 4mg 4 mg, [facility] ers ne 6 06-05 Oral, ity of (DILAUDID) 14:47: 02:22 Q6HPRN, [place] tablet 4 mg 19 :08 Starting Medi efrain on Sat Branch 12/16/21 at 0947, Until 12/16/21 at 2122, Routine, Pain (scale 7-10) potassium 2021-0 2021- No 20meq 20 mEq, IV Univers chloride 20 12-15 06-04 Piggyback, i ty of mEq/100 mL 23:45: 03:11 Q2H, 2 [place] (KCL) 20 00 :00 doses, Medical mEq/100 mL First dose [facility] RTU IVPB 20 on Fri mEq 12/15/21 at 1845, Last dose on Sat12/15/21 at 2000, 100 mL HYDROmorpho No 1mg 1 mg, Slow Univers [...] 40 mg 00 First dose Medical on Sat12/15/21 at 0900, Until Discontinu ed, Routine lactobacill [...] of 1,000 mg in 11:30: 16:04 Piggyback, [place] NaCl 0.9% 00 :40 Q24H ABX, Medic al (NS) 50 mL First dose Bra sdh MINI-BAG on Sat12/15/21 at 0630, Until Discontinu [...] Yes 650mg 650 mg, Un ela en 03 Oral, ity of (TYLENOL) 11:04: Q6HPRN, [place] [...] 2021- No 1000mg 1,000 mg, Univers en 12-1503 Oral, ity of (TYLENOL) 08:45: 07:36 ONCE, 1 [place] tablet 00 :00 dose, On Medical 1,000 mg Sat12/15/21 Branc h at 0345, SAHARA insulin 2021- No 8U 8 Units, Unive rs regular 12-15 Slow IV ity of human 08:15: 07:13 Push, [place] (HUMULIN R) 00 :00 ONCE, 1 Medic al injection 8 dose, On Bran ch Units Sat12/15/21 at 0315, Routine NaCl 0.9% 2021- No 1000mL at 999 Uni vers (NS) bolus 12-15 mL/hr, ity of infusion 07:15: 06:12 1,000 mL, [place] 1,000 mL 00 :00 IV Medical Infusion, Branch ONCE, 1 dose, On Sat12/15/21 at 0215, STAT insulin No 8U 8 Units, Unive rs regular 12-15 Slow IV ity of human 07:15: 06:21 [place], [place] (HUMULIN R) 00 :00 ONCE, 1 Medic al injection 8 dose, On Bran ch Units Sat12/15/21 at 0215, STAT iopamidol 2021- No [id number] 100mL 100 mL, Univers (ISOVUE 12-15 Intravenou [...] On Medica l (NS) 50 mL Sat12/15/21 [facility] MINI-BAG at 0000, Administer over 30 [...] 00 :00 dose, On Medical NaCl 0.9% [facility] 12/14/21 Bran ch (NS) 50 mL at 2345, IV [place] piggyback NaCl 0.9% 2021- No 1000mL at 999 Uni vers (NS) bolus 12-15 mL/hr, ity of infusion 04:30: 06:04 1,000 mL, Tim [place] 1,000 mL 00 :00 IV Medical Infusion, [place] ONCE, 1 dose, On [place] 12/14/21 at 2330, STAT FENTanyl PF No 100ug 100 mcg, Univers (SUBLIMAZE 12-15 Slow IV ity o f (PF)) 03:30: 03:24 Push, [place] injection 00 :00 ONCE, 1 Medical 100 mcg dose, On [facility] 12/14/21 at 2230, STAT cefTRIAXone Yes 2000mg 2,000 mg, Univers (ROCEPHIN) 5-17 Intramuscu ity of injection 21:00: lar, Q24H, [place] 2,000 mg 00 First dose Medic al on Sat [place] 11/28/21 at 1600, Until Discontinu ed, SAHARA
Re ason for Anti-Infec tive: Documented Infection< br>Documen lester Infection Site: Skin / Soft Tissue
Duration of Therapy: Other (see Comments) hydromorpho Yes 4ug Take 4 mcg Univers ne HCl 5-17 by mouth ity of (HYDROMORPH 17:43: every 12 [place] ONE ORAL) 55 (twelve) Medica l hours. [place] hydromorpho Yes 4ug Take 4 mcg Univers ne HCl 5-17 by mouth ity of (HYDROMORPH 17:43: every 12 [place] ONE ORAL) 55 (twelve) Medica l hours. Branch collagenase Yes [id number] Apply to Univers 250 5-17 affected ity of unit/gram 00:00: area(s) [place] ointment 00 daily. Medical Branch collagenase Yes [id number] Apply to Univers 250 5-17 affected ity of unit/gram 00:00: area(s) [place] ointment 00 daily. Medical Branch collagenase 2021-0 Yes [id number] Apply to Univers 250 5-17 affected ity of unit/gram 00:00: area(s) [place] ointment 00 daily. Medical Branch collagenase 2021-0 Yes [id number] Apply to Univers 250 5-17 affected ity of unit/gram 00:00: area(s) [place] ointment 00 daily. Medical Branch collagenase 2021-0 Yes [id number] Apply to Univers 250 5-17 affected ity of unit/gram 00:00: area(s) [place] ointment 00 daily. Medical Branch collagenase 2021-0 Yes [id number] Apply to Univers 250 5-17 affected ity of unit/gram 00:00: area(s) [place] ointment 00 daily. Medical Branch collagenase 2021-0 Yes [id number] Apply to Univers 250 5-17 affected ity of unit/gram 00:00: area(s) [place] ointment 00 daily. Medical Branch collagenase 2021-0 Yes [id number] Apply to Univers 250 5-17 affected ity of unit/gram 00:00: area(s) [place] ointment 00 daily. Medical Branch collagenase 2021-0 Yes [id number] Apply to Univers 250 5-17 affected ity of unit/gram 00:00: area(s) [place] ointment 00 daily. Medical Branch collagenase 2021-0 Yes [id number] Apply to Univers 250 5-17 affected ity of unit/gram 00:00: area(s) [place] ointment 00 daily. Medical Branch collagenase 2021-0 Yes [id number] Apply to Univers 250 5-17 affected ity of unit/gram 00:00: area(s) [place] ointment 00 daily. Medical Branch collagenase 2021-0 Yes [id number] Apply to Univers 250 5-17 affected ity of unit/gram 00:00: area(s) [place] ointment 00 daily. Medical Branch collagenase 2021-0 Yes [id number] Apply to Univers 250 5-17 affected ity of unit/gram 00:00: area(s) [place] ointment 00 daily. Medical Branch collagenase 2021-0 Yes [id number] Apply to Univers 250 5-17 affected ity of unit/gram 00:00: area(s) [place] ointment 00 daily. Medical Branch collagenase 2021-0 Yes [id number] Apply to Univers 250 5-17 affected ity of unit/gram 00:00: area(s) [place] ointment 00 daily. Medical Branch collagenase 2021-0 Yes [id number] Apply to Univers 250 5-17 affected ity of unit/gram 00:00: area(s) [place] ointment 00 daily. Medical Branch collagenase 2021-0 Yes [id number] Apply to Univers 250 5-17 affected ity of unit/gram 00:00: area(s) [place] ointment 00 daily. Medical Branch collagenase 2021-0 Yes [id number] Apply to Univers 250 5-17 affected ity of unit/gram 00:00: area(s) [place] ointment 00 daily. Medical Branch collagenase 2021-0 Yes [id number] Apply to Univers 250 5-17 affected ity of unit/gram 00:00: area(s) [place] ointment 00 daily. Medical Branch collagenase 2021-0 Yes [id number] Apply to Univers 250 5-17 affected ity of unit/gram 00:00: area(s) [place] ointment 00 daily. Medical Branch collagenase 2021-0 Yes [id number] Apply to Univers 250 5-17 affected ity of unit/gram 00:00: area(s) [place] ointment 00 daily. Medical Branch collagenase 2021-0 Yes [id number] Apply to Univers 250 5-17 affected ity of unit/gram 00:00: area(s) [place] ointment 00 daily. Medical Branch collagenase 2021-0 Yes [id number] Apply to Univers 250 5-17 affected ity of unit/gram 00:00: area(s) [place] ointment 00 daily. Medical Branch collagenase 2021-0 Yes [id number] Apply to Univers 250 5-17 affected ity of unit/gram 00:00: area(s) [place] ointment 00 daily. Medical Branch collagenase 2021-0 Yes [id number] Apply to Univers 250 5-17 affected ity of unit/gram 00:00: area(s) [place] ointment 00 daily. Medical Branch collagenase 2021-0 Yes [id number] Apply to Univers 250 5-17 affected ity of unit/gram 00:00: area(s) [place] ointment 00 daily. Medical Branch collagenase 2021-0 Yes [id number] Apply to Univers 250 5-17 affected ity of unit/gram 00:00: area(s) [place] ointment 00 daily. Medical Branch collagenase 2021-0 Yes [id number] Apply to Univers 250 5-17 affected ity of unit/gram 00:00: area(s) [place] ointment 00 daily. Medical Branch collagenase 2021-0 Yes [id number] Apply to Univers 250 5-17 affected ity of unit/gram 00:00: area(s) [place] ointment 00 daily. Medical Branch collagenase 2021-0 Yes [id number] Apply to Univers 250 5-17 affected ity of unit/gram 00:00: area(s) [place] ointment 00 daily. Medical Branch collagenase 2021-0 Yes [id number] Apply to Univers 250 5-17 affected ity of unit/gram 00:00: area(s) [place] ointment 00 daily. Medical Branch collagenase 2021-0 Yes [id number] Apply to Univers 250 5-17 affected ity of unit/gram 00:00: area(s) [place] ointment 00 daily. Medical Branch collagenase 2021-0 Yes [id number] Apply to Univers 250 5-17 affected ity of unit/gram 00:00: area(s) [place] ointment 00 daily. Medical Branch collagenase 2021-0 Yes [id number] Apply to Univers 250 5-17 affected ity of unit/gram 00:00: area(s) [place] ointment 00 daily. Medical Branch collagenase 2021-0 Yes [id number] Apply to Univers 250 5-17 affected ity of unit/gram 00:00: area(s) [place] ointment 00 daily. Medical Branch collagenase 2021-0 Yes [id number] Apply to Univers 250 5-17 affected ity of unit/gram 00:00: area(s) [place] ointment 00 daily. Medical Branch collagenase 2021-0 Yes [id number] Apply to Univers 250 5-17 affected ity of unit/gram 00:00: area(s) [place] ointment 00 daily. Medical Branch collagenase 2021-0 Yes [id number] Apply to Univers 250 5-17 affected ity of unit/gram 00:00: area(s) [place] ointment 00 daily. Medical Branch collagenase 2021-0 Yes [id number] Apply to Univers 250 5-17 affected ity of unit/gram 00:00: area(s) [place] ointment 00 daily. Medical Branch collagenase 2021-0 Yes [id number] Apply to Univers 250 5-17 affected ity of unit/gram 00:00: area(s) [place] ointment 00 daily. Medical Branch collagenase 2021-0 Yes [id number] Apply to Univers 250 5-17 affected ity of unit/gram 00:00: area(s) [place] ointment 00 daily. Medical Branch collagenase 2021-0 Yes [id number] Apply to Univers 250 5-17 affected ity of unit/gram 00:00: area(s) [place] ointment 00 daily. Medical Branch collagenase 2021-0 Yes [id number] Apply to Univers 250 5-17 affected ity of unit/gram 00:00: area(s) [place] ointment 00 daily. Medical Branch collagenase 2021-0 Yes [id number] Apply to Univers 250 5-17 affected ity of unit/gram 00:00: area(s) [place] ointment 00 daily. Medical Branch collagenase 2021-0 Yes [id number] Apply to Univers 250 5-17 affected ity of unit/gram 00:00: area(s) [place] ointment 00 daily. Medical Branch collagenase 2021-0 Yes [id number] Apply to Univers 250 5-17 affected ity of unit/gram 00:00: area(s) [place] ointment 00 daily. Medical Branch collagenase 2021-0 Yes [id number] Apply to Univers 250 5-17 affected ity of unit/gram 00:00: area(s) [place] ointment 00 daily. Medical Branch collagenase 2021-0 Yes [id number] Apply to Univers 250 5-17 affected ity of unit/gram 00:00: area(s) [place] ointment 00 daily. Medical Branch collagenase 2021-0 Yes [id number] Apply to Univers 250 5-17 affected ity of unit/gram 00:00: area(s) [place] ointment 00 daily. Medical Branch collagenase 2021-0 Yes [id number] Apply to Univers 250 5-17 affected ity of unit/gram 00:00: area(s) [place] ointment 00 daily. Medical Branch collagenase 2021-0 Yes [id number] Apply to Univers 250 5-17 affected ity of unit/gram 00:00: area(s) [place] ointment 00 daily. Medical Branch collagenase 2021-0 Yes [id number] Apply to Univers 250 5-17 affected ity of unit/gram 00:00: area(s) [place] ointment 00 daily. Medical Branch collagenase 2021-0 Yes [id number] Apply to Univers 250 5-17 affected ity of unit/gram 00:00: area(s) [place] ointment 00 daily. Medical Branch collagenase 2021-0 Yes [id number] Apply to Univers 250 5-17 affected ity of unit/gram 00:00: area(s) [place] ointment 00 daily. Medical Branch collagenase 2021-0 Yes [id number] Apply to Univers 250 5-17 affected ity of unit/gram 00:00: area(s) [place] ointment 00 daily. Medical Branch collagenase 2021-0 Yes [id number] Apply to Univers 250 5-17 affected ity of unit/gram 00:00: area(s) [place] ointment 00 daily. Medical Branch collagenase 2021-0 Yes [id number] Apply to Univers 250 5-17 affected ity of unit/gram 00:00: area(s) [place] ointment 00 daily. Medical Branch collagenase 2021-0 Yes [id number] Apply to Univers 250 5-17 affected ity of unit/gram 00:00: area(s) [place] ointment 00 daily. Medical Branch collagenase 2021-0 Yes [id number] Apply to Univers 250 5-17 affected ity of unit/gram 00:00: area(s) [place] ointment 00 daily. Medical Branch collagenase 2021-0 Yes [id number] Apply to Univers 250 5-17 affected ity of unit/gram 00:00: area(s) [place] ointment 00 daily. Medical Branch collagenase 2021-0 Yes [id number] Apply to Univers 250 5-17 affected ity of unit/gram 00:00: area(s) [place] ointment 00 daily. Medical Branch collagenase 2021-0 Yes [id number] Apply to Univers 250 5-17 affected ity of unit/gram 00:00: area(s) [place] ointment 00 daily. Medical Branch collagenase 2021-0 Yes [id number] Apply to Univers 250 5-17 affected ity of unit/gram 00:00: area(s) [place] ointment 00 daily. Medical Branch collagenase 2021-0 Yes [id number] Apply to Univers 250 5-17 affected ity of unit/gram 00:00: area(s) [place] ointment 00 daily. Medical Branch collagenase 2021-0 Yes [id number] Apply to Univers 250 5-17 affected ity of unit/gram 00:00: area(s) [place] ointment 00 daily. Medical Branch collagenase 2021-0 Yes [id number] Apply to Univers 250 5-17 affected ity of unit/gram 00:00: area(s) [place] ointment 00 daily. Medical Branch collagenase 2021-0 Yes [id number] Apply to Univers 250 5-17 affected ity of unit/gram 00:00: area(s) [place] ointment 00 daily. Medical Branch collagenase 2021-0 Yes [id number] Apply to Univers 250 5-17 affected ity of unit/gram 00:00: area(s) [place] ointment 00 daily. Medical Branch collagenase 2021-0 Yes [id number] Apply to Univers 250 5-17 affected ity of unit/gram 00:00: area(s) [place] ointment 00 daily. Medical Branch collagenase 2021-0 Yes [id number] Apply to Univers 250 5-17 affected ity of unit/gram 00:00: area(s) [place] ointment 00 daily. Medical Branch collagenase 2021-0 Yes [id number] Apply to Univers 250 5-17 affected ity of unit/gram 00:00: area(s) [place] ointment 00 daily. Medical Branch collagenase 2021-0 Yes [id number] Apply to Univers 250 5-17 affected ity of unit/gram 00:00: area(s) [place] ointment 00 daily. Medical Branch collagenase 2021-0 Yes [id number] Apply to Univers 250 5-17 affected ity of unit/gram 00:00: area(s) [place] ointment 00 daily. Medical Branch docusate 2021-2021- No [id number] 100mg Take 1 U nivers 100 mg -29 12- capsule by ity of capsule 00:00: 04:59 mouth 2 [place] 00 :00 (two) Medical times Branch daily for 30 days. lactobacill 2021- No [id number] .5mg Take 1 Univers us 5-17 06-17 tablet by ity of acidophilus 00:00: 04:59 mouth 2 [place] 00 :00 (two) Medical times Branch daily for 30 days. sennosides 2021- No [id number] 8.6mg Take 1 Univers 8.6 mg 5-17 06-17 tablet by ity of tablet 00:00: 04:59 mouth 2 [place] 00 :00 (two) Medical times Branch daily for 30 days. tamsulosin 2021- No [id number] .4mg Take 1 Univers 0.4 mg 24 5-17 06-17 capsule by ity of hr capsule 00:00: 04:59 mouth [place] 00 :00 daily for Medical 30 days. Branch docusate 2021- No [id number] 100mg Take 1 U nivers 100 mg 5-17 06-17 capsule by ity of capsule 00:00: 04:59 mouth 2 [place] 00 :00 (two) Medical times [place] daily for 30 days. lactobacill 2021- No [id number] .5mg Take 1 Univers us 5-17 06-17 tablet by ity of acidophilus 00:00: 04:59 mouth 2 [place] 00 :00 (two) Medical times [place] daily for 30 days. sennosides 2021- No [id number] 8.6mg Take 1 Univers 8.6 mg 5-17 06-17 tablet by ity of tablet 00:00: 04:59 mouth 2 [place] 00 :00 (two) Medical times [place] daily for 30 days. tamsulosin 2021- No [id number] .4mg Take 1 Univers 0.4 mg 24 5-17 06-17 capsule by ity of hr capsule 00:00: 04:59 mouth [place] 00 :00 daily for Medical 30 days. Branch docusate 2021- No [id number] 100mg Take 1 U nivers 100 mg 5-17 06-17 capsule by ity of capsule 00:00: 04:59 mouth 2 [place] 00 :00 (two) Medical times Branch daily for 30 days. lactobacill 2021- No [id number] .5mg Take 1 Univers us 5-17 06-17 tablet by ity of acidophilus 00:00: 04:59 mouth 2 [place] 00 :00 (two) Medical times Branch daily for 30 days. sennosides 2021- No [id number] 8.6mg Take 1 Univers 8.6 mg 5-17 06-17 tablet by ity of tablet 00:00: 04:59 mouth 2 [place] 00 :00 (two) Medical times Branch daily for 30 days. tamsulosin 2021- No [id number] .4mg Take 1 Univers 0.4 mg 24 5-17 06-17 capsule by ity of hr capsule 00:00: 04:59 mouth [place] 00 :00 daily for Medical 30 days. Branch docusate 2021- No [id number] 100mg Take 1 U nivers 100 mg 5-17 06-17 capsule by ity of capsule 00:00: 04:59 mouth 2 [place] 00 :00 (two) Medical times Branch daily for 30 days. lactobacill 2021- No [id number] .5mg Take 1 Univers us 5-17 06-17 tablet by ity of acidophilus 00:00: 04:59 mouth 2 [place] 00 :00 (two) Medical times Branch daily for 30 days. sennosides 2021- No [id number] 8.6mg Take 1 Univers 8.6 mg 5-17 06-17 tablet by ity of tablet 00:00: 04:59 mouth 2 [place] 00 :00 (two) Medical times Branch daily for 30 days. tamsulosin 2021- No [id number] .4mg Take 1 Univers 0.4 mg 24 5-17 06-17 capsule by ity of hr capsule 00:00: 04:59 mouth [place] 00 :00 daily for Medical 30 days. Branch docusate 2021- No [id number] 100mg Take 1 U nivers 100 mg 5-17 06-17 capsule by ity of capsule 00:00: 04:59 mouth 2 [place] 00 :00 (two) Medical times Branch daily for 30 days. lactobacill 2021- No [id number] .5mg Take 1 Univers us 5-17 06-17 tablet by ity of acidophilus 00:00: 04:59 mouth 2 [place] 00 :00 (two) Medical times Branch daily for 30 days. sennosides 2021- No [id number] 8.6mg Take 1 Univers 8.6 mg 11-28-17 tablet by ity of tablet 00:00: 04:59 mouth 2 [place] 00 :00 (two) Medical times Branch daily for 30 days. tamsulosin 2021- No [id number] .4mg Take 1 Univers 0.4 mg 24 11-28- capsule by ity of hr capsule 00:00: 04:59 mouth [place] 00 :00 daily for Medical 30 days. Branch metroNIDAZO 2021- No [id number] 500mg Take 1 Univers LE 500 mg 11-28- tablet by ity of tablet 00:00: 04:59 mouth [place] 00 :00 every 12 Medical (twelve) Branch hours for 3 days. metroNIDAZO 2021- No [id number] 500mg Take 1 Univers LE 500 mg 11-28- tablet by ity of tablet 00:00: 04:59 mouth [place] 00 :00 every 12 Medical (twelve) Branch hours for 3 days. metroNIDAZO 2021- No 500mg 500 mg, U nivers LE (FLAGYL) 11-26-20 Oral, Q12H i ty of tablet 500 22:00: 21:59 ABX, 10 Tim as mg 00 :00 doses, Medical First dose Branch on Sat11/26/21 at 1700, Last dose on Sat12/01/21 at 0500, Routine
Reason for Anti-Infec tive: Documented Infection< br>Documen lester Infection Site: Skin / Soft Tissue
Duration of Therapy: Other (see Comments) cefTRIAXone 2021- No 2g 2 g, IV Un ela (ROCEPHIN) 11-26-17 Piggy[place], it y of 2 g in [...] (Apply To ity of ointment 22:15: Affected [place] 00 Areas), Medical DAILY, Branch First dose [...] 125mg 125 mg, Un ela (FIRVANQ) 11-22 05-16 Oral, ity of 50 mg/mL 14:00: 16:27 [...] ration of therapy: 72 hours NaCl 0.9% No 1000mL at 50 [facility] ers (NS) IV 11-22 05-16 mL/hr, IV [...] 7 days tamsulosin Yes .4mg 0.4 mg, [facility] ers (FLOMAX) 11-22 Oral, ity of capsule [...] Sat11/22/21 at 0030, STAT iopamidol 2021- No [id number] 150mL 150 mL, Univers (ISOVUE 11-22 Intravenou ity o f 370-500 mL) 04:45: 03:34 s, ONCE, 1 [place] injection 00 :00 dose, On Medica l 150 mL e [place] 11/21/21 at 2345, Routine ceFEPIme 2021- No 2000mg 2,000 mg, U nivers (MAXIPIME) 11-22 IV ity of injection 04:15: 04:15 [place], [place] 2,000 mg 00 :00 ONCE, 1 Medical dose, On Branch [facility] 11/21/21 at 2315, STAT
Re ason for Anti-Infec tive: Empiric Therapy for Suspected Infection< br>Empiric Therapy Site: Bone
Du ration of therapy: 72 hours FENTanyl PF 2021- No 75ug 75 mcg, Un ela (SUBLIMAZE 11-22 Slow IV ity o f (PF)) 03:45: 02:47 Push, [place] injection 00 :00 ONCE, 1 Medical 75 mcg dose, On Branch [facility] 11/21/21 at 2245, STAT OXYCODONE No Take by [facility] ers HCL/ACETAMI 11-22 mouth. ity o f NOPHEN 03:22: 00:00 [place] (PERCOCET 50 :00 Medical ORAL) Branch FENTanyl PF No 100ug 100 mcg, Univers (SUBLIMAZE 11-22 Slow IV ity o f (PF)) 01:30: 01:12 Push, [place] injection 00 :00 ONCE, 1 Medical 100 mcg dose, On Branch [facility] 11/21/21 at 2030, STAT Lovenox No Notes: Memoria 4-13 (Same as: l 17:00: Lovenox) Jason Lovenox No Notes: Memoria 4-13 (Same as: l 17:00: Lovenox) Jason 00 Lovenox No Notes: Memoria 4-13 (Same as: l 17:00: Lovenox) [place] Lovenox 0 No Notes: Memoria 4-13 (Same as: l 17:00: Lovenox) Jason 00 Lovenox No Notes: Memoria 4-13 (Same as: l 17:00: Lovenox) Jason Lovenox No Notes: Memoria 4-13 (Same as: l 17:00: Lovenox) Jason 00 promethazin No Notes: Erwin benjamin e 4-13 (Same as: l 16:47: Phenergan) Wilder 00 promethazin No Notes: Erwin benjamin e 4-13 (Same as: l 16:47: Phenergan) [place] 00 promethazin No Notes: Erwin benjamin e 4-13 (Same as: l 16:47: Phenergan) Jason 00 promethazin No Notes: Erwin benjamin e 4-13 (Same as: l 16:47: Phenergan) [place] 00 promethazin No Notes: Erwin benjamin e 4-13 (Same as: l 16:47: Phenergan) Jason 00 promethazin No Notes: Erwin benjamin e 4-13 (Same as: l 16:47: Phenergan) [place] 00 albuterol No Notes: SEE Me moria 0.083% [...] Q12H, 0 Her manzo 00 Refill(s) hydromorpho 2022-0 Yes 4 mg = 1 Me moria ne 4 mg 4-13 tab, PO, l oral tablet 16:43: Q12H, 0 Her manzo 00 Refill(s) hydromorpho 2022-0 Yes 4 mg = 1 Me moria ne 4 mg 4-13 tab, PO, l oral tablet 16:43: Q12H, 0 Her manzo 00 Refill(s) hydromorpho 2022-0 Yes 4 mg = 1 Me moria [...] 0 Her manzo 00 Refill(s) Lantus 100 2021-0 No 10 unit, Mem oria units/mL 4-13 SUB-Q, l 16:40: Daily, 0 [place] 00 Refill(s) Lantus 100 2021-0 No 10 unit, Mem oria units/mL 4-13 SUB-Q, l 16:40: Daily, 0 [place] 00 Refill(s) Lantus 100 2021-0 No 10 unit, Mem oria units/mL 4-13 SUB-Q, l 16:40: Daily, 0 [place] 00 Refill(s) Lantus 100 2021-0 No 10 unit, Mem oria units/mL 4-13 SUB-Q, l 16:40: Daily, 0 [place] 00 Refill(s) Lantus 100 2021-0 No 10 unit, Mem oria units/mL 4-13 SUB-Q, l 16:40: Daily, 0 [place] 00 Refill(s) Lantus 100 2021-0 No 10 unit, Mem oria units/mL 4-13 SUB-Q, l 16:40: Daily, 0 [place] 00 Refill(s) Lantus 100 2022-0 No 10 [...] Infuse over: 0 hr, 0 Lantus 100 2-0 No 10 unit, Mem oria units/mL 4-12 0.1 mL, l 14:00: Route: SUB-Q, Drug form: SOLN, Daily, Dosing Weight 127.727, kg, Start date: 10/24/21 9:00:00 CDT, Duration: 30 day, Stop date: 11/22/21 9:00:00 CDT, Infuse over: 0 hr, 0 Lantus 100 2-0 No 10 unit, Mem oria units/mL 4-12 0.1 mL, l 14:00: Route: SUB-Q, Drug form: SOLN, Daily, Dosing Weight 127.727, kg, Start date: 10/24/21 9:00:00 CDT, Duration: 30 day, Stop date: 11/22/21 9:00:00 CDT, Infuse over: 0 hr, 0 Lantus 100 2-0 No 10 unit, Mem oria units/mL 4-12 0.1 mL, l 14:00: Route: Wilder 00 SUB-Q, Drug form: SOLN, Daily, Dosing Weight 127.727, kg, Start date: 10/24/21 9:00:00 CDT, Duration: 30 day, Stop date: 11/22/21 9:00:00 CDT, Infuse over: 0 hr, 0 Lantus 100 2-0 No 10 unit, Mem oria units/mL 4-12 0.1 mL, l 14:00: Route: Wilder 00 SUB-Q, Drug form: SOLN, Daily, Dosing Weight 127.727, kg, Start date: 10/24/21 9:00:00 CDT, Duration: 30 day, Stop date: 11/22/21 9:00:00 CDT, Infuse over: 0 hr, 0 cefepime + 2021-0 No Notes: Memor ia sterile 4-12 (Same As: l water 10 mL 06:00: Maxipime) H ermann 00 MEDICATION WASTE Product Size: 1000 mg Product Wasted: _0__ mg cefepime + 2021-0 No Notes: Memor ia sterile 4-12 (Same As: l water 10 mL 06:00: Maxipime) H ermann 00 MEDICATION WASTE Product Size: 1000 mg Product Wasted: _0__ mg cefepime + 2021-0 No Notes: Memor ia sterile 4-12 (Same As: l water 10 mL 06:00: Maxipime) H ermann 00 MEDICATION WASTE Product Size: 1000 mg Product Wasted: _0__ mg cefepime + 2021-0 No Notes: Memor ia sterile 4-12 (Same As: l water 10 mL 06:00: Maxipime) H ermann 00 MEDICATION WASTE Product Size: 1000 mg Product Wasted: _0__ mg cefepime + 2-0 No Notes: Memor ia sterile 4-12 (Same As: l water 10 mL 06:00: Maxipime) H ermann 00 MEDICATION WASTE Product Size: 1000 mg Product Wasted: _0__ mg cefepime + 2-0 No Notes: Memor ia sterile 4-12 (Same As: l water 10 mL 06:00: Maxipime) H ermann 00 MEDICATION WASTE Product Size: 1000 mg Product Wasted: _0__ mg cefepime + 2-0 No Notes: Memor ia sterile 4-12 (Same As: l water 10 mL 05:00: Maxipime) H ermann 00 MEDICATION WASTE Product Size: 1000 mg Product Wasted: _0__ mg insulin No Notes: Memoria lispro 4-12 (Same as: l 05:00: Humalog) Wilder 00 Roll in palms of hands gently; [...] lispro 4-12 (Same as: l 05:00: Humalog) Wilder 00 Roll in palms of hands gently; [...] lispro 4-12 (Same as: l 05:00: Humalog) Wilder 00 Roll in palms of hands gently; [...] lispro 4-12 (Same as: l 05:00: Humalog) Wilder 00 Roll in palms of hands gently; [...] lispro 4-12 (Same as: l 05:00: Humalog) Wilder 00 Roll in palms of hands gently; Do not shake vigorously . WASTE: F/P - Black; E - Municipal Trash Bin Stable for 28 days at room temperatur e. Expires in days from ____Date Dilaudid No Notes: Memoria 4-11 (Same as: l 16:53: Dilaudid) Jason Dilaudid No Notes: Memoria 4-11 (Same as: l 16:53: Dilaudid) Wilder Dilaudid No Notes: Memoria 4-11 (Same as: l 16:53: Dilaudid) Wilder Dilaudid No Notes: Memoria 4-11 (Same as: l 16:53: Dilaudid) Dilaudid No Notes: Memoria 4-11 (Same as: l 16:53: Dilaudid) Dilaudid No Notes: Memoria 4-11 (Same as: l 16:53: Dilaudid) Lantus 100 2021-0 No 10 unit, Mem oria units/mL 4-11 0.1 mL, l 16:24: Route: Jason SUB-Q, Drug form: SOLN, ONCE, Dosing Weight 127.727, kg, Start date: 10/23/21 11:24:00 CDT, Stop date: 10/23/21 11:24:00 CDT, Infuse over: 0 hr, 0 Lantus 100 2021-0 No 10 unit, Mem oria units/mL 4-11 0.1 mL, l 16:24: Route: Jason SUB-Q, Drug form: SOLN, ONCE, Dosing Weight 127.727, kg, Start date: 10/23/21 11:24:00 CDT, Stop date: 10/23/21 11:24:00 CDT, Infuse over: 0 hr, 0 Lantus 100 2021-0 No 10 unit, Mem oria units/mL 4-11 0.1 mL, l 16:24: Route: Wilder SUB-Q, Drug form: SOLN, ONCE, Dosing Weight 127.727, kg, Start date: 10/23/21 11:24:00 CDT, Stop date: 10/23/21 11:24:00 CDT, Infuse over: 0 hr, 0 Lantus 100 2021-0 No 10 unit, Mem oria units/mL 4-11 0.1 mL, l 16:24: Route: Jason SUB-Q, Drug form: SOLN, ONCE, Dosing Weight 127.727, kg, Start date: 10/23/21 11:24:00 CDT, Stop date: 10/23/21 11:24:00 CDT, Infuse over: 0 hr, 0 Lantus 100 2021-0 No 10 unit, Mem oria units/mL 4-11 0.1 mL, l 16:24: Route: Wilder 00 SUB-Q, Drug form: SOLN, ONCE, Dosing Weight 127.727, kg, Start date: 10/23/21 11:24:00 CDT, Stop date: 10/23/21 11:24:00 CDT, Infuse over: 0 hr, 0 Lantus 100 2021-0 No 10 unit, Mem oria units/mL 4-11 0.1 mL, l 16:24: Route: Wilder 00 SUB-Q, Drug form: SOLN, ONCE, Dosing [...] IV 4-11 500 ml/hr, l 15:15: Infuse Wilder 00 Over: 1 hr, Route: IV, 500, Drug form: INJ, ONCE, Priority: STAT, Dosing Weight 127.727 kg, Start date: 10/23/21 10:15:00 CDT, Stop date: 10/23/21 10:15:00 CDT, 0 NS (Bolus) 2021-0 No 500 mL, Erwin benjamin IV 4-11 500 ml/hr, l 15:15: Infuse Wilder 00 Over: 1 hr, Route: IV, 500, Drug form: INJ, ONCE, Priority: STAT, Dosing Weight 127.727 kg, Start date: 10/23/21 10:15:00 CDT, Stop date: 10/23/21 10:15:00 CDT, 0 NS (Bolus) 2022-0 No 500 mL, Erwin benjamin IV 4-11 [...] No 12.5 gm, Memor ia 50% Syringe -11 25 mL, l (D50W) 13:59: Route: IVP, [...] Stop date: 11/22/21 8:58:00 CDT, 0 insulin 2-0 No Notes: Memoria lispro 4-11 (Same as: l 13:59: Humalog) Roll in palms of hands gently; Do not shake vigorously . WASTE: F/P - Black; E - Municipal Trash Bin Stable for 28 days at room temperatur e. Expires in days from ____Date Dextrose 2-0 No 12.5 gm, Memor ia 50% Syringe 4-11 25 mL, l (D50W) 13:59: Route: Wilder 00 IVP, Drug Form: INJ, Dosing Weight [...] 0 insulin 2021-0 No Notes: Memoria lispro -11 (Same as: [...] lispro 4-11 (Same as: l 13:59: Humalog) Wilder 00 Roll in palms of hands gently; [...] Stop date: 11/22/21 8:58:00 CDT, 0 glucagon 0 No 1 mg, Memoria 4-11 Route: IM, l 13:59: Drug form: Jason 00 PDR/INJ, PRN, Dosing Weight 127.727, kg, PRN Blood Glucose Results, Start date: 10/23/21 8:59:00 CDT, Duration: 30 day, Stop date: 11/22/21 8:58:00 CDT, 0 insulin 2021-0 No Notes: Memoria lispro 4-11 (Same as: l 13:59: Humalog) Wilder 00 Roll in palms of hands gently; Do not shake vigorously . WASTE: F/P - Black; E - Municipal Trash Bin Stable for 28 days at room temperatur e. Expires in days from ____Date Lyrica No Notes: Memoria 4-11 (Same as: l 02:00: Lyrica) Lyrica No Notes: Memoria 4-11 (Same as: l 02:00: Lyrica) Jason Lyrica No Notes: Memoria 4-11 (Same as: l 02:00: Lyrica) Wilder 00 Lyrica No Notes: Memoria 4-11 (Same as: l 02:00: Lyrica) Jason Lyrica No Notes: Memoria 4-11 (Same as: l 02:00: Lyrica) Jason 00 Lyrica No Notes: Memoria 4-11 (Same as: [...] Dilute in l mg/mL 17:00: at least Wilder intravenous 00 50ml D5W solution + or [...] Erwin benjamin 4-10 (Same l 16:43: as:Solu-ME Wilder 00 DROL, A-Methapre d) MEDICATION WASTE Product Size: 1000 mg Product Wasted: _0__ mg magnesium No Notes: Memori a sulfate 4-10 WASTE: F/P l 16:43: - Sink; E Jason - Municipal Trash Bin Solu-MEDROL No Notes: Erwin benjamin 4-10 (Same l 16:43: as:Solu-ME Wilder 00 DROL, A-Methapre d) MEDICATION WASTE Product Size: 1000 mg Product Wasted: _0__ mg magnesium No Notes: Memori a sulfate 4-10 WASTE: F/P l 16:43: - Sink; E Wilder - Municipal Trash Bin Solu-MEDROL No Notes: Erwin benjamin 4-10 (Same l 16:43: as:Solu-ME Jason 00 DROL, A-Methapre d) MEDICATION WASTE Product Size: 1000 mg Product Wasted: _0__ mg magnesium No Notes: Memori a sulfate 4-10 WASTE: F/P l 16:43: - Sink; E Jason 00 - Municipal Trash Bin Solu-MEDROL No Notes: Erwin benjamin 4-10 (Same l 16:43: as:Solu-ME Wilder 00 DROL, A-Methapre d) MEDICATION WASTE Product Size: 1000 mg Product Wasted: _0__ mg magnesium No Notes: Memori a sulfate 4-10 WASTE: F/P l 16:43: - Sink; E Wilder 00 - Municipal Trash Bin Solu-MEDROL No Notes: Erwin benjamin 4-10 (Same l 16:43: as:Solu-[place] Jason 00 DROL, A-Methapre d) MEDICATION WASTE Product Size: 1000 mg Product Wasted: _0__ mg magnesium No Notes: Memori a sulfate 4-10 WASTE: F/P l 16:43: - Sink; E - Municipal Trash Bin Solu-MEDROL No Notes: Erwin benjamin 4-10 (Same l 16:43: [facility] Jason 00 DROL, A-Methapre d) MEDICATION WASTE [...] moria e 4-09 Route: l 18:44: IVPB, Wilder 00 Q12H, Dosing Weight 127.727, kg, PRN Nausea & Vomiting, Start date: 10/21/21 13:44:00 CDT, Duration: 30 day, Stop date: 11/20/21 13:43:00 CDT promethazin 2021-0 No 6.25 mg, Me moria e 4-09 Route: l 18:44: IVPB, Wilder 00 Q12H, Dosing Weight 127.727, kg, PRN Nausea & Vomiting, Start date: 10/21/21 13:44:00 CDT, Duration: 30 day, Stop date: 11/20/21 13:43:00 CDT promethazin 2021-0 No 6.25 mg, Me moria e 4-09 Route: l 18:44: IVPB, Jason 00 Q12H, Dosing Weight 127.727, kg, PRN Nausea & Vomiting, Start date: 10/21/21 13:44:00 CDT, Duration: 30 day, Stop date: 11/20/21 13:43:00 CDT promethazin 2-0 No 6.25 mg, Me moria e 4-09 Route: l 18:44: IVPB, Jason 00 Q12H, Dosing Weight 127.727, kg, PRN Nausea & Vomiting, Start date: 10/21/21 13:44:00 CDT, Duration: 30 day, Stop date: 11/20/21 13:43:00 CDT promethazin 2021-0 No 6.25 mg, Me moria e 4-09 Route: l 18:44: IVPB, Wilder 00 Q12H, Dosing Weight 127.727, kg, PRN Nausea & Vomiting, Start date: 10/21/21 13:44:00 CDT, Duration: 30 day, Stop date: 11/20/21 13:43:00 CDT promethazin 2021-0 No 6.25 mg, Me moria e 4-09 [...] Memoria 4-09 (Same as: l 18:36: Dilaudid) Wilder Dilaudid No Notes: Memoria 4-09 (Same as: l 18:36: Dilaudid) Jason Dilaudid No Notes: Memoria 4-09 (Same as: l 18:36: Dilaudid) Jason Phenergan No Notes: Memori a 4-09 (Same as: l 18:33: Phenergan) Jason 00 6.25 mg = 1/2 x 12.5 mg TAB Phenergan No Notes: Memori a 4-09 (Same as: l 18:33: Phenergan) Jason 00 6.25 mg = 1/2 x 12.5 mg TAB Phenergan No Notes: Memori a 4-09 (Same as: l 18:33: Phenergan) Wilder 00 6.25 mg = 1/2 x 12.5 mg TAB Phenergan No Notes: Memori a 4-09 (Same as: l 18:33: Phenergan) Wilder 00 6.25 mg = 1/2 x 12.5 mg TAB Phenergan No Notes: Memori a 4-09 (Same as: l 18:33: Phenergan) Jason 00 6.25 mg = 1/2 x 12.5 mg TAB Phenergan No Notes: Memori a 4-09 (Same as: l 18:33: Phenergan) Wilder 00 6.25 mg = 1/2 x 12.5 mg TAB ascorbic No Notes: Memoria acid 4-09 (Same as: l 14:00: Vitamin C) Wilder celecoxib No Notes: Memori a 4-09 NSAID. l 14:00: Please Wilder 00 check indication . Not for seizure. [...] Memoria sulfate 4-09 (Zinc l 14:00: sulfate Wilder 00 capsule) - 220 mg Zinc sulfate = 50 mg elemental zinc Same as Zinc Sulfate ascorbic No Notes: Memoria acid 4-09 (Same as: l 14:00: Vitamin C) Wilder 00 celecoxib No Notes: Memori a 4-09 [...] new patch" zinc No Notes: Memoria sulfate 4- (Zinc l 14:00: sulfate Wilder 00 capsule) - 220 mg Zinc sulfate = 50 mg elemental zinc Same as Zinc Sulfate ascorbic No Notes: Memoria acid 4-09 (Same as: l 14:00: Vitamin C) Wilder celecoxib No Notes: Memori a 4-09 NSAID. l 14:00: Please Jason 00 check indication . Not for seizure. (Same As: CeleBREX) Lidoderm 5% No Notes: Erwin benjamin topical -09 Apply only l film 14:00: once for Wilder (patch) 00 up to 12 hours in a 24-hour period (12 hours on and 12 hours off). (Same as: Aspercreme Lidocaine Patch) "Remove old patch before applicatio n of new patch" zinc No Notes: Memoria sulfate 4-09 (Zinc l 14:00: sulfate Wilder 00 capsule) - 220 mg Zinc sulfate = 50 mg elemental zinc Same as Zinc Sulfate ascorbic No Notes: Memoria acid 4-09 (Same as: l 14:00: Vitamin C) Wilder 00 celecoxib No Notes: Memori a 4-09 NSAID. l 14:00: Please Jason 00 check indication . Not for seizure. (Same As: CeleBREX) Lidoderm 5% 0 No Notes: Erwin benjamin topical 4-09 Apply only l film 14:00: once for Jason (patch) 00 up to 12 hours in a 24-hour period (12 hours on and 12 hours off). (Same as: Aspercreme Lidocaine Patch) "Remove old patch before applicatio n of new patch" zinc No Notes: Memoria sulfate 4-09 (Zinc l 14:00: sulfate Wilder 00 capsule) - 220 mg Zinc sulfate = 50 mg elemental zinc Same as Zinc Sulfate ascorbic No Notes: Memoria acid 4-09 (Same as: l 14:00: Vitamin C) Jason 00 celecoxib No Notes: Memori a 4-09 [...] Memoria sulfate 4-09 (Zinc l 14:00: sulfate Wilder 00 capsule) - 220 mg Zinc sulfate = 50 mg elemental zinc Same as Zinc Sulfate ascorbic No Notes: Memoria acid 4-09 (Same as: l 14:00: Vitamin C) Wilder 00 celecoxib 2021-0 No Notes: Memori a 4-09 NSAID. l [...] before applicatio n of new patch" zinc 2021- No Notes: Memoria sulfate 4-09 (Zinc l 14:00: sulfate Wilder 00 capsule) - 220 mg Zinc sulfate [...] ne 10-21 (Same as: l 09:39: Dilaudid) Wilder hydromorpho No Notes: Erwin benjamin ne - (Same as: l 09:39: Dilaudid) Wilder hydromorpho No Notes: Erwin benjamin ne - (Same as: l 09:39: Dilaudid) Jason hydromorpho No Notes: Erwin benjamin ne - (Same as: l 09:39: Dilaudid) Jason hydromorpho No Notes: Erwin benjamin ne 4-09 (Same as: l 09:39: Dilaudid) Jason 00 hydromorpho No Notes: Erwin benjamin ne 4-09 (Same as: l 09:39: Dilaudid) Jason 00 methocarbam No Notes: Erwin benjamin ol 4-09 (Same l 05:00: as:Robaxin Wilder ) methocarbam No Notes: Erwin benjamin ol 4-09 (Same l 05:00: as:Robaxin Wilder ) methocarbam No Notes: Erwin benjamin ol 4-09 (Same l 05:00: as:Robaxin Jason ) methocarbam No Notes: Erwin benjamin ol 4-09 (Same l 05:00: as:Robaxin Jason 00 ) methocarbam No Notes: Erwin benjamin ol 4-09 (Same l 05:00: as:Robaxin Jason 00 ) methocarbam No Notes: Erwin benjamin ol 4-09 (Same l 05:00: as:Robaxin Wilder ) docusate No Notes: Memoria 4-09 (Same as: l 02:00: Colace) Jason (Do Not Crush) senna No Notes: Memoria 4-09 (Same as: l 02:00: Senokot) Wilder 00 Saline No Notes: Memoria Flush 0.9% 4-09 (Same as: l 02:00: BD Jason 00 Posiflush) topiramate No Notes: Memor ia 4-09 (Same As: l 02:00: Topamax) Jason 00 "Do Not Crush" Haz[facility]ous [facility] Group 3:Reproduc tive risk Hazardous Drug -- Refer to safe handling procedure PPE Matrix remove No Notes: Memoria patch 4-09 Remove l 02:00: patch 12 Jsaon 00 hours after applicatio n each day. docusate No Notes: Memoria 4-09 (Same as: l 02:00: Colace) Wilder 00 (Do Not Crush) senna No Notes: Memoria 4-09 (Same as: l 02:00: Senokot) Wilder 00 Saline No Notes: Memoria Flush 0.9% 4-09 (Same as: l 02:00: BD Wilder 00 Posiflush) topiramate No Notes: Memor ia 4-09 (Same As: l 02:00: Topamax) Jason 00 "Do Not Crush" Hazardous Drug Group 3:Reproduc tive risk Hazardous Drug -- Refer to safe handling procedure PPE Matrix remove No Notes: Memoria patch 4-09 Remove l 02:00: patch 12 Jason 00 hours after applicatio n each day. docusate No Notes: Memoria 4-09 (Same as: l 02:00: Colace) Wilder 00 (Do Not Crush) senna No Notes: Memoria 4-09 (Same as: l 02:00: Senokot) Jason 00 Saline No Notes: Memoria Flush 0.9% 4-09 (Same as: l 02:00: BD Wilder 00 Posiflush) topiramate No Notes: Memor ia 4-09 (Same As: l 02:00: Topamax) Wilder 00 "Do Not Crush" Hazardous Drug Group 3:Reproduc tive risk Hazardous Drug -- Refer to safe handling procedure PPE Matrix remove No Notes: Memoria patch 4-09 Remove l 02:00: patch 12 Wilder 00 hours after applicatio n each day. docusate No Notes: Memoria 4-09 (Same as: l 02:00: Colace) Jason 00 (Do Not Crush) senna No Notes: Memoria 4-09 (Same as: l 02:00: Senokot) Wilder 00 Saline No Notes: Memoria Flush 0.9% 4-09 (Same as: l 02:00: BD Jason 00 Posiflush) topiramate No Notes: Memor ia 4-09 (Same As: l 02:00: Topamax) Wilder 00 "Do Not Crush" Hazardous Drug Group [...] Memoria 4-09 (Same as: l 02:00: Senokot) Wilder 00 Saline No Notes: Memoria Flush 0.9% 4-09 (Same as: l 02:00: BD Wilder 00 Posiflush) topiramate No Notes: Memor ia 4-09 (Same As: l 02:00: Topamax) Wilder 00 "Do Not Crush" Hazardous Drug Group 3:Reproduc tive risk Hazardous Drug -- Refer to safe handling procedure PPE Matrix remove No Notes: Memoria patch 4-09 Remove l 02:00: patch 12 Wilder 00 hours after applicatio n each day. docusate No Notes: Memoria 4-09 (Same as: l 02:00: Colace) Wilder 00 (Do Not Crush) senna No Notes: Memoria 4-09 (Same as: l 02:00: Senokot) Wilder 00 Saline No Notes: Memoria Flush 0.9% 4-09 (Same as: l 02:00: BD Wilder 00 Posiflush) topiramate No Notes: Memor ia 4-09 (Same As: l 02:00: Topamax) Wilder 00 "Do Not Crush" Hazardous Drug Group [...] en 4-09 acetaminop l 01:00: hen 4000 Wilder 00 mg/day (4 gm/day). (Same as: Tylenol Extra Strength) acetaminoph No Notes: Max Memoria en - acetaminop l 01:00: hen 4000 Wilder 00 mg/day (4 gm/day). (Same as: Tylenol Extra Strength) acetaminoph No Notes: Max Memoria en - acetaminop l 01:00: hen 4000 Jason 00 mg/day (4 gm/day). (Same as: Tylenol Extra Strength) acetaminoph No Notes: Max Memoria en 4- acetaminop l 01:00: hen 4000 Jason 00 mg/day (4 gm/day). (Same as: Tylenol Extra Strength) oxyCODONE No Notes: Memori a immediate - (Same as: l release 00:09: Roxicodone Herm philip 00 ) acetaminoph No Notes: Do M emoria en-hydrocod 10-21 not exceed l one 325 00:09: 4gm/day of Herm philip mg-10 mg 00 acetaminop oral tablet hen. (Same as: [place] 325/10) oxyCODONE No Notes: Memori a immediate - (Same as: l release 00:09: Roxicodone Herm philip 00 ) acetaminoph No Notes: Do M emoria en-hydrocod - not exceed l one 325 00:09: 4gm/day of Herm philip mg-10 mg 00 acetaminop oral tablet hen. (Same as: [place] 325/10) oxyCODONE 0 No Notes: Memori a immediate - (Same as: l release 00:09: Roxicodone Herm philip 00 ) acetaminoph No Notes: Do M emoria en-hydrocod 4- not exceed l one 325 00:09: 4gm/day of Herm philip mg-10 mg 00 acetaminop oral tablet hen. (Same as: [place] 325/10) oxyCODONE No Notes: Memori a immediate 4-09 (Same as: l release 00:09: Roxicodone Herm philip 00 ) acetaminoph No Notes: Do M emoria en-hydrocod 4-09 not exceed l one 325 00:09: 4gm/day of Herm philip mg-10 mg 00 acetaminop oral tablet hen. (Same as: [place] 325/10) oxyCODONE No Notes: Memori a immediate 4-09 (Same as: l release 00:09: Roxicodone Herm philip 00 ) acetaminoph No Notes: Do M emoria en-hydrocod 4-09 not exceed l one 325 00:09: 4gm/day of Herm philip mg-10 mg 00 acetaminop oral tablet hen. (Same as: [place] 325/10) oxyCODONE No Notes: Memori a immediate 4-09 (Same as: l release 00:09: Roxicodone Herm philip 00 ) acetaminoph No Notes: Do M emoria en-hydrocod 4-09 not exceed l one 325 00:09: 4gm/day of Herm philip mg-10 mg 00 acetaminop oral tablet hen. (Same as: [place] 325/10) LORazepam No Notes: Memori a 4-09 [...] a 4-09 (Same as: l 00:06: Ativan) Wilder oxyCODONE No Notes: Memori a immediate 4-09 (Same as: l release 00:06: Roxicodone Herm philip 00 ) LORazepam No Notes: Memori a 4-09 (Same as: l 00:06: Ativan) Wilder oxyCODONE No Notes: Memori a immediate 4-09 (Same as: l release 00:06: Roxicodone Herm philip ) LORazepam No Notes: Memori a 4-09 (Same as: l 00:06: Ativan) Jason oxyCODONE No Notes: Memori a immediate 4-09 (Same as: l release 00:06: Roxicodone Herm philip ) LORazepam No Notes: Memori a 4-09 (Same as: l 00:06: Ativan) Jason oxyCODONE No Notes: Memori a immediate 4- (Same as: l release 00:06: Roxicodone Herm philip ) Sodium No 1,000 mL, Memori a Chloride 10-20 Rate: 75 l 0.9% IV 23:43: ml/hr, Jason 1,000 mL 00 Infuse over: 13.3 hr, Route: IV, Dosing Weight 127.727 kg, Total Volume: 1,000, Start date: 10/20/21 18:43:00 CDT, Duration: 30 day, Stop date: 11/19/21 18:42:00 CDT, BSA: 2.37 m2, 0 acetaminoph No Notes: Do M emoria en -08 not exceed l 23:43: 4 gm/day. Wilder 00 (Same as: Tylenol) acetaminoph No Notes: Erwin benjamin en-hydrocod 4-08 (Same as: l one 325 23:43: [place] Wilder mg-5 mg 00 325/5) Do oral tablet not exceed 4gm/day of acetaminop hen. acetaminoph No Notes: Do M emoria en-hydrocod 4-08 not exceed l one 325 23:43: 4gm/day of Herm philip mg-10 mg 00 acetaminop oral tablet hen. (Same as: [place] 325/10) bisacodyl No Notes: Memori a 4-08 (Same As: l 23:43: Dulcolax, Jason 00 Bisco-Lax) hydrALAZINE No Notes: Erwin benjamin 4-08 (Same as: l 23:43: Apresoline Wilder ) Push over 5 minutes labetalol No 10 mg, 2 Erwin benjamin 4-08 mL, Route: l 23:43: IVP, Drug form: INJ, Q15Min, Dosing Weight 127.727, kg, Start date: 10/20/21 18:43:00 CDT, Duration: 3 doses or times, Stop date: 10/20/21 19:13:00 CDT, 0 Saline No Notes: Memoria Flush 0.9% 4-08 (Same as: l 23:43: BD Wilder 00 Posiflush) Sodium No 1,000 mL, Memori [...] 4-08 not exceed l 23:43: 4 gm/day. Wilder 00 (Same as: Tylenol) acetaminoph No Notes: Erwin benjamin en-hydrocod 4-08 (Same as: l one 325 23:43: [place] Wilder mg-5 mg 00 325/5) Do oral tablet not exceed 4gm/day of acetaminop hen. acetaminoph No Notes: Do M emoria en-hydrocod 4-08 not exceed l one 325 23:43: 4gm/day of Herm philip mg-10 mg 00 acetaminop oral tablet hen. (Same as: [place] 325/10) bisacodyl No Notes: Memori a 4-08 (Same As: l 23:43: Dulcolax, Jason 00 Bisco-Lax) hydrALAZINE No Notes: Erwin benjamin 4-08 (Same as: l 23:43: Apresoline Wilder 00 ) Push over 5 minutes labetalol No [...] Rate: 75 l 0.9% IV 23:43: ml/hr, Wilder 1,000 mL 00 Infuse over: 13.3 hr, Route: IV, Dosing Weight 127.727 kg, Total Volume: 1,000, Start date: 10/20/21 18:43:00 CDT, Duration: 30 day, Stop date: 11/19/21 18:42:00 CDT, BSA: 2.37 m2, 0 acetaminoph No Notes: Do M emoria en 4-08 not exceed l 23:43: 4 gm/day. Wilder (Same as: Tylenol) acetaminoph No Notes: Erwin benjamin en-hydrocod 4-08 (Same as: l one 325 23:43: [place] Wilder mg-5 mg 00 325/5) Do oral tablet not exceed 4gm/day of acetaminop hen. acetaminoph No Notes: Do M emoria en-hydrocod 4-08 not exceed l one 325 23:43: 4gm/day of Herm philip mg-10 mg 00 acetaminop oral tablet hen. (Same as: [place] 325/10) bisacodyl No Notes: Memori a 4-08 (Same As: l 23:43: Dulcolax, Jason Bisco-Lax) hydrALAZINE No Notes: Erwin benjamin 4-08 (Same as: l 23:43: Apresoline ) Push over 5 minutes labetalol 2022-0 No 10 mg, 2 Erwin benjamin 4-08 mL, Route: l 23:43: IVP, Drug form: INJ, Q15Min, Dosing Weight 127.727, kg, Start date: 10/20/21 18:43:00 CDT, Duration: 3 doses or times, Stop date: 10/20/21 19:13:00 CDT, 0 Saline No Notes: Memoria Flush 0.9% 408 (Same as: l 23:43: BD Jason 00 Posiflush) Sodium No 1,000 mL, Memori a Chloride 08 Rate: 75 l 0.9% IV 23:43: ml/hr, Wilder 1,000 mL 00 Infuse over: 13.3 hr, Route: IV, Dosing Weight 127.727 kg, Total Volume: 1,000, Start date: 10/20/21 18:43:00 CDT, Duration: 30 day, Stop date: 11/19/21 18:42:00 CDT, BSA: 2.37 m2, 0 acetaminoph No Notes: Do M emoria en 4-08 not exceed l 23:43: 4 gm/day. Wilder 00 (Same as: Tylenol) acetaminoph No Notes: Erwin benjamin en-hydrocod 4-08 (Same as: l one 325 23:43: [place] Wilder mg-5 mg 00 325/5) Do oral tablet not exceed 4gm/day of acetaminop hen. acetaminoph No Notes: Do M emoria en-hydrocod 4-08 not exceed l one 325 23:43: 4gm/day of Herm philip mg-10 mg 00 acetaminop oral tablet hen. (Same as: [place] 325/10) bisacodyl No Notes: Memori a 4-08 [...] 0.9% 4-08 (Same as: l 23:43: BD Jason 00 Posiflush) Sodium No 1,000 mL, Memori a Chloride 4-08 Rate: 75 l 0.9% IV 23:43: ml/hr, Wilder 1,000 mL 00 Infuse over: 13.3 hr, Route: IV, Dosing Weight 127.727 kg, Total Volume: 1,000, Start date: 10/20/21 18:43:00 CDT, Duration: 30 day, Stop date: 11/19/21 18:42:00 CDT, BSA: 2.37 m2, 0 acetaminoph No Notes: Do M emoria en 4-08 not exceed l 23:43: 4 gm/day. Wilder (Same as: Tylenol) acetaminoph No Notes: Erwin benjamin en-hydrocod 4-08 (Same as: l one 325 23:43: [place] Wilder mg-5 mg 00 325/5) Do oral tablet not exceed 4gm/day of acetaminop hen. acetaminoph No Notes: Do M emoria en-hydrocod 4-08 not exceed l one 325 23:43: 4gm/day of Herm philip mg-10 mg 00 acetaminop oral tablet hen. (Same as: [place] 325/10) bisacodyl No Notes: Memori a 4-08 [...] 0.9% 4-08 (Same as: l 23:43: BD Wilder 00 Posiflush) Sodium No 1,000 mL, Memori a Chloride 4-08 Rate: 75 l 0.9% IV 23:43: ml/hr, Wilder 1,000 mL 00 Infuse over: 13.3 hr, Route: IV, Dosing Weight 127.727 kg, Total Volume: 1,000, Start date: 10/20/21 18:43:00 CDT, Duration: 30 day, Stop date: 11/19/21 18:42:00 CDT, BSA: 2.37 m2, 0 acetaminoph No Notes: Do M emoria en 4-08 not exceed l 23:43: 4 gm/day. Wilder 00 (Same as: Tylenol) acetaminoph No Notes: Erwin benjamin en-hydrocod 4-08 (Same as: l one 325 23:43: [place] Wilder mg-5 mg 00 325/5) Do oral tablet not exceed 4gm/day of acetaminop hen. acetaminoph No Notes: Do M emoria en-hydrocod 4-08 not exceed l one 325 23:43: 4gm/day of Herm philip mg-10 mg 00 acetaminop oral tablet hen. (Same as: [place] 325/10) bisacodyl No Notes: Memori a 4-08 (Same As: l 23:43: Dulcolax, Wilder Bisco-Lax) hydrALAZINE No Notes: Erwin benjamin 4-08 (Same as: l 23:43: Apresoline ) Push over 5 minutes labetalol No 10 mg, 2 Erwin benjamin 4-08 mL, Route: l 23:43: IVP, Drug form: INJ, Q15Min, Dosing Weight 127.727, kg, Start date: 10/20/21 18:43:00 CDT, Duration: 3 doses or times, Stop date: 10/20/21 19:13:00 CDT, 0 Saline 2021-0 No Notes: Memoria Flush 0.9% 08 (Same as: l 23:43: BD Wilder 00 Posiflush) NaCl 0.9% 2021- No 1000mL [...] [facility] 10/16/21 Branch at 0000, STAT topiramate Yes 25 mg = 1 Me moria 25 mg oral 3-29 cap, PO, l capsule 13:44: Q12H, # 60 Herm philip 00 cap, 0 Refill(s), Pharmacy: [facility] #[id number], 149.86, cm, 10/06/21 1:18:00 CDT, Height, 127.727, kg, 10/06/21 1:18:00 CDT, Weight topiramate 2021-0 Yes 25 mg = 1 Me moria 25 mg oral 3-29 cap, PO, l capsule 13:44: Q12H, # 60 Herm philip 00 cap, 0 Refill(s), Pharmacy: [facility] #[id number], 149.86, cm, 10/06/21 1:18:00 CDT, Height, 127.727, kg, 10/06/21 1:18:00 CDT, Weight topiramate 2021-0 Yes 25 mg = 1 Me moria 25 mg oral 3-29 cap, PO, l capsule 13:44: Q12H, # 60 Herm philip 00 cap, 0 Refill(s), Pharmacy: [facility] #[id number], 149.86, cm, 10/06/21 1:18:00 CDT, Height, 127.727, kg, 10/06/21 1:18:00 CDT, Weight topiramate 2021-0 Yes 25 mg = 1 Me moria 25 mg oral 3-29 cap, PO, l capsule 13:44: Q12H, # 60 Herm philip 00 cap, 0 Refill(s), Pharmacy: [facility] #[id number], 149.86, cm, 10/06/21 1:18:00 CDT, Height, 127.727, kg, 10/06/21 1:18:00 CDT, Weight topiramate 2021-0 Yes 25 mg = 1 Me moria 25 mg oral 3-29 cap, PO, l capsule 13:44: Q12H, # 60 Herm philip 00 cap, 0 Refill(s), Pharmacy: [facility] #[id number], 149.86, cm, 10/06/21 1:18:00 CDT, Height, 127.727, kg, 10/06/21 1:18:00 CDT, Weight topiramate 2021-0 Yes 25 mg = 1 Me moria 25 mg oral 3-29 cap, PO, l capsule 13:44: Q12H, # 60 Herm philip 00 cap, 0 Refill(s), Pharmacy: [facility] #[id number], 149.86, cm, 10/06/21 1:18:00 CDT, Height, 127.727, kg, 10/06/21 1:18:00 CDT, Weight topiramate 2021-0 No Notes: Memor ia 3-28 Hazardous l 22:05: Drug Group Wilder 00 3:Reproduc tive risk Hazardous Drug -- Refer to safe handling procedure PPE Matrix Sprinkle formulatio n. (Same As: Topamax) topiramate 0 No Notes: Memor ia 3-28 Hazardous l [...] ia 3-28 Hazardous l 22:05: Drug Group Wilder 3:Reproduc tive risk Hazardous Drug -- Refer to safe handling procedure PPE Matrix Sprinkle formulatio n. (Same As: Topamax) Edwin No Notes: Memoria packet 3-28 (Same as: l 21:30: Edwin Wilder 00 Unflavored ) Administer ing EDWIN orally: Mix into 8-10 fl oz of room temperatur e juice, soda, or water. Also mixes well with warm beverages, like coffee or tea. Can be mixed with applesauce . Thoroughly stir for 30-60 seconds or until completely dissolved No Notes: Memoria packet 3-28 (Same as: l 21:30: Edwin Jason 00 Unflavored ) Administer ing EDWIN orally: Mix into 8-10 fl oz of room temperatur e juice, soda, or water. Also mixes well with warm beverages, like coffee or tea. Can be mixed with applesauce . Thoroughly stir for 30-60 seconds or until completely dissolved No Notes: Memoria packet 3-28 (Same as: l 21:30: Edwin Jason 00 Unflavored ) Administer ing EDWIN orally: Mix into 8-10 fl oz of room temperatur e juice, soda, or water. Also mixes well with warm beverages, like coffee or tea. Can be mixed with applesauce . Thoroughly stir for 30-60 seconds or until completely dissolved Edwin 2021-0 No Notes: Memoria packet 3-28 (Same as: l 21:30: Edwin Wilder 00 Unflavored ) Administer ing EDWIN orally: Mix into 8-10 fl oz of room temperatur e juice, soda, or water. Also mixes well with warm beverages, like coffee or tea. Can be mixed with applesauce . Thoroughly stir for 30-60 seconds or until completely dissolved Edwin 2021-0 No Notes: Memoria packet 3-28 (Same as: l 21:30: Edwin Jason 00 Unflavored ) Administer ing EDWIN orally: Mix into 8-10 fl oz of room temperatur e juice, soda, or water. Also mixes well with warm beverages, like coffee or tea. Can be mixed with applesauce . Thoroughly stir for 30-60 seconds or until completely dissolved Edwin 2021-0 No Notes: Memoria packet 3- (Same as: l 21:30: Edwin Jason 00 Unflavored ) Administer ing EDWIN orally: Mix into 8-10 fl oz of room temperatur e juice, soda, or water. Also mixes well with warm beverages, like coffee or tea. Can be mixed with applesauce . Thoroughly stir for 30-60 seconds or until completely dissolved Lovenox 2021-0 No Notes: Memoria 3-27 (Same as: l 16:00: Lovenox) Wilder 00 Lovenox 2021-0 No Notes: Memoria 3-27 (Same as: l 16:00: Lovenox) Wilder 00 Lovenox 2021-0 No Notes: Memoria 3-27 (Same as: l 16:00: Lovenox) Wilder 00 Lovenox 2021-0 No Notes: Memoria 3-27 (Same as: l 16:00: Lovenox) Wilder 00 Lovenox 2021-0 No Notes: Memoria 3-27 (Same as: l 16:00: Lovenox) Wilder 00 Lovenox 2021-0 No Notes: Memoria 3-27 (Same as: l 16:00: Lovenox) Wilder 00 Magnesium 2021-0 No Notes: Memori a Sulfate 3-27 WASTE: F/P l 15:54: - Sink; E Jason 00 - Municipal Trash Bin methylPREDN No Notes: Erwin benjamin ISolone 3-27 (Same l SODium 15:54: as:Solu-ME Kristen nn SUCCinate 00 DROL, A-Methapre d) MEDICATION WASTE Product Size: 1000 mg Product Wasted: ___ mg Magnesium No Notes: Memori a Sulfate 3-27 WASTE: F/P l 15:54: - Sink; - Municipal Trash Bin methylPREDN No Notes: Erwin benjamin ISolone 3-27 (Same l SODium 15:54: as:Solu-ME Kristen nn SUCCinate 00 DROL, A-Methapre d) MEDICATION WASTE Product Size: 1000 mg Product Wasted: ___ mg Magnesium No Notes: Memori a Sulfate 3-27 WASTE: F/P l 15:54: - Sink; - [facility] Trash Bin methylPREDN No Notes: Erwin benjamin ISolone 3-27 (Same l SODium 15:54: as:Solu-ME Kristen nn SUCCinate 00 DROL, A-Methapre d) MEDICATION WASTE Product Size: 1000 mg Product Wasted: ___ mg Magnesium No Notes: Memori a Sulfate 3-27 WASTE: F/P l 15:54: - Sink; - [facility] Trash Bin methylPREDN No Notes: Erwin benjamin ISolone 3-27 (Same l SODium 15:54: as:Solu-ME Kristen nn SUCCinate 00 DROL, A-Methapre d) MEDICATION WASTE Product Size: 1000 mg Product Wasted: ___ mg Magnesium No Notes: Memori a Sulfate 3-27 WASTE: F/P l 15:54: - Sink; - Municipal Trash Bin methylPREDN No Notes: Erwin benjamin ISolone 3-27 (Same l SODium 15:54: as:Solu-ME Kristen nn SUCCinate 00 DROL, A-Methapre d) MEDICATION WASTE Product Size: 1000 mg Product Wasted: ___ mg Magnesium No Notes: Memori a Sulfate - [...] Memoria 3-27 (Same as: l 13:28: Dilaudid) Wilder 00 Dilaudid No Notes: Memoria 3-27 (Same as: l 13:28: Dilaudid) Jason Dilaudid No Notes: Memoria 3-27 (Same as: l 13:28: Dilaudid) Wilder 00 Dilaudid No Notes: Memoria 3-27 (Same as: l 13:28: Dilaudid) Jason 00 remove No Notes: Memoria patch 3-27 Remove l 02:00: patch 12 Wilder 00 hours after applicatio n each day. remove No Notes: Memoria patch 3-27 Remove l 02:00: patch 12 Jason 00 hours after applicatio n each day. remove No Notes: Memoria patch 3-27 Remove l 02:00: patch 12 Jason 00 hours after applicatio n each day. remove No Notes: Memoria patch 3-27 Remove l 02:00: patch 12 Wilder 00 hours after applicatio n each day. remove No Notes: Memoria patch 3-27 Remove l 02:00: patch 12 Wilder 00 hours after applicatio n each day. remove No Notes: Memoria patch 3-27 Remove l 02:00: patch 12 Wilder 00 hours after applicatio n each day. Lyrica No Notes: Memoria 3-26 (Same as: l 21:58: Lyrica) Wilder Naproxen No Notes: Memoria 3-26 (Same as: l 21:58: Naprosyn) Wilder Take with food. Lyrica No Notes: Memoria 3-26 (Same as: l 21:58: Lyrica) Jason Naproxen No Notes: Memoria 3-26 (Same as: l 21:58: Naprosyn) Wilder Take with food. Lyrica No Notes: Memoria 3-26 (Same as: l 21:58: Lyrica) Wilder 00 Naproxen No Notes: Memoria 3-26 (Same [...] Memoria 3-26 (Same as: l 21:58: Lyrica) Wilder 00 Naproxen No Notes: Memoria 3-26 (Same [...] (Same as: l 14:00: Vitamin C) Jason Zinc No Notes: Memoria Sulfate 3-26 (Zinc l 14:00: sulfate Wilder 00 capsule) - 220 mg Zinc sulfate [...] Memoria Sulfate 3-26 (Zinc l 14:00: sulfate Wilder 00 capsule) - 220 mg Zinc sulfate [...] Memoria Sulfate 3-26 (Zinc l 14:00: sulfate Wilder 00 capsule) - 220 mg Zinc sulfate = 50 mg elemental zinc Same as Zinc Sulfate multivitami No Notes: Erwin benjamin n 3-26 (Same l 14:00: as:Thera) WASTE: F/P - Black; E - Municipal Trash Bin Take with food. Lidocaine No Notes: Memori a 0.05 MG/MG 3- Apply only l Transdermal 14:00: once for He rmann Patch 00 up to 12 hours in a 24-hour period (12 hours on and 12 hours off). (Same as: Aspercreme Lidocaine Patch) "Remove old patch before applicatio n of new patch" Celebrex No Notes: Memoria 3-26 NSAID. l 03:15: Please Wilder 00 check indication . Not for seizure. (Same As: CeleBREX) Robaxin No Notes: Memoria 3-26 (Same l 03:15: as:Robaxin Wilder 00 ) gabapentin No Notes: Memor ia 3-26 (Same as: l 03:15: Neurontin) Jason 00 Tramadol No Notes: Not Mem oria 3-26 to exceed l 03:15: 400mg/day. Jason 00 (Same As: Ultram) Celebrex No Notes: Memoria 3-26 NSAID. l 03:15: Please Jason 00 check indication . Not for seizure. (Same As: CeleBREX) Robaxin No Notes: Memoria 3-26 (Same l 03:15: as:Robaxin Wilder 00 ) gabapentin No Notes: Memor ia 3-26 (Same as: l 03:15: Neurontin) Wilder 00 Tramadol No Notes: Not Mem oria 3-26 to exceed l 03:15: 400mg/day. Wilder 00 (Same As: Ultram) Celebrex No Notes: Memoria 3-26 NSAID. l 03:15: Please Wilder 00 check indication . Not for seizure. (Same As: CeleBREX) Robaxin No Notes: Memoria 3-26 (Same l 03:15: as:Robaxin Wilder 00 ) gabapentin 0 No Notes: Memor ia 3-26 (Same as: l 03:15: Neurontin) Jason 00 Tramadol 0 No Notes: Not Mem oria 3-26 to exceed l 03:15: 400mg/day. Jason 00 (Same As: Ultram) Celebrex 0 No Notes: Memoria 3-26 NSAID. l 03:15: Please Jason 00 check indication . Not for seizure. (Same As: CeleBREX) Robaxin No Notes: Memoria 3-26 (Same l 03:15: as:Robaxin Jason 00 ) gabapentin 0 No Notes: Memor ia 3-26 (Same as: l 03:15: Neurontin) Wilder 00 Tramadol 0 No Notes: Not Mem oria 3-26 to exceed l 03:15: 400mg/day. Wilder 00 (Same As: Ultram) Celebrex 0 No Notes: Memoria 3-26 NSAID. l 03:15: Please Wilder 00 check indication . Not for seizure. (Same As: CeleBREX) Robaxin No Notes: Memoria 3-26 (Same l 03:15: as:Robaxin Wilder 00 ) gabapentin 0 No Notes: Memor ia 3-26 (Same as: l 03:15: Neurontin) Wilder 00 Tramadol 0 No Notes: Not Mem oria 3-26 to exceed l 03:15: 400mg/day. Wilder 00 (Same As: Ultram) Celebrex No Notes: Memoria 3-26 NSAID. l 03:15: Please Jason 00 check indication . Not for seizure. (Same As: CeleBREX) Robaxin No Notes: Memoria 3-26 (Same l 03:15: as:Robaxin Wilder 00 ) gabapentin 0 No Notes: Memor ia 3-26 (Same as: l 03:15: Neurontin) Jason 00 Tramadol 0 No Notes: Not Mem oria 3-26 to exceed l 03:15: 400mg/day. Wilder 00 (Same As: Ultram) Dexamethaso 0 No Notes: Memoria ne 3-26 MEDICATION l 03:00: WASTE Jason 00 Product Size: 10 mg Product Wasted: ___ mg Dexamethaso 0 No Notes: Memoria ne 3-26 MEDICATION l 03:00: WASTE Jason 00 Product Size: 10 mg Product Wasted: ___ mg Dexamethaso 0 No Notes: Memoria ne 3-26 MEDICATION l 03:00: WASTE Jason Product Size: 10 mg Product Wasted: ___ mg Dexamethaso 2021-0 No Notes: Memoria ne 3-26 MEDICATION l 03:00: WASTE Wilder Product Size: 10 mg Product Wasted: ___ mg Dexamethaso 2021-0 No Notes: Memoria ne 3-26 MEDICATION l 03:00: WASTE Jason Product Size: 10 mg Product Wasted: ___ mg Dexamethaso 2021-0 No Notes: Memoria ne 3-26 MEDICATION l 03:00: WASTE Wilder Product Size: 10 mg Product Wasted: ___ mg Dilaudid No Notes: Memoria 3- Same as l 02:58: Dilaudid Wilder 00 Dilaudid 2021-0 No Notes: Memoria 3- Same as l 02:58: Dilaudid Wilder 00 Dilaudid 2021-0 No Notes: Memoria 3- Same as l 02:58: Dilaudid Wilder 00 Dilaudid 2021-0 No Notes: Memoria 3- Same as l 02:58: Dilaudid Wilder 00 Dilaudid 2021-0 No Notes: Memoria 3- Same as l 02:58: Dilaudid Wilder 00 Dilaudid 2021-0 No Notes: Memoria 3- Same as l 02:58: Dilaudid Jason 00 Acetaminoph No Notes: Max Memoria en 3-25 acetaminop l 22:38: hen = Wilder 00 4000mg/day (4 gm/day). (Same as: Tylenol) [...] en 3-25 acetaminop l 22:38: hen = Wilder 00 4000mg/day (4 gm/day). (Same as: Tylenol) Acetaminoph No Notes: Max Memoria en 3-25 acetaminop l 22:38: hen = Wilder 00 4000mg/day (4 gm/day). (Same as: Tylenol) Isolyte S No Notes: Memori a PH-7.4 3-25 (Same as: l (Bolus) IV 22:37: Isolyte S He rmann 00 PH7.4, Normosol-R PH 7.4, Plasma-Lyt e A ) Magnesium No Notes: Memori a Sulfate 3-25 WASTE: F/P l 22:37: - Sink; E Wilder - Municipal Trash Bin Isolyte S No [...] WASTE: F/P l 22:37: - Sink; E Wilder - Municipal Trash Bin Isolyte S No [...] WASTE: F/P l 22:37: - Sink; E Wilder 00 - Municipal Trash Bin Isolyte S No Notes: Memori a PH-7.4 3-25 (Same as: l (Bolus) IV 22:37: Isolyte S He rmann 00 PH7.4, Normosol-R PH 7.4, Plasma-Lyt e A ) Magnesium No Notes: Memori a Sulfate 3-25 WASTE: F/P l 22:37: - Sink; E Wilder - Municipal Trash Bin Iohexol No 100 mL, Memoria 3-25 Route: l 20:04: IVP, Drug Jason 00 Form: SOLN, Dosing Weight 127.727, kg, ONCALL, STAT, Start date: 10/06/21 15:04:00 CDT, Duration: 1 doses or times, Dose = 2.2ml/kg, Max dose = 100ml -- "To be infused by Radiology Staff ONLY" Iohexol 0 No 100 mL, Memoria 3-25 Route: l 20:04: IVP, Drug Wilder 00 Form: SOLN, Dosing Weight 127.727, kg, ONCALL, STAT, Start date: 10/06/21 15:04:00 CDT, Duration: 1 doses or times, Dose = 2.2ml/kg, Max dose = 100ml -- "To be infused by Radiology Staff ONLY" Iohexol 0 No 100 mL, Memoria 3-25 Route: l 20:04: IVP, Drug Wilder 00 Form: SOLN, Dosing Weight 127.727, kg, ONCALL, STAT, Start date: 10/06/21 15:04:00 CDT, Duration: 1 doses or times, Dose = 2.2ml/kg, Max dose = 100ml -- "To be infused by Radiology Staff ONLY" Iohexol No 100 mL, Memoria 3-25 Route: l 20:04: IVP, Drug Jason 00 Form: SOLN, Dosing Weight 127.727, kg, ONCALL, STAT, Start date: 10/06/21 15:04:00 CDT, Duration: 1 doses or times, Dose = 2.2ml/kg, Max dose = 100ml -- "To be infused by Radiology Staff ONLY" Iohexol No 100 mL, Memoria 3-25 Route: l 20:04: IVP, Drug Wilder 00 Form: SOLN, Dosing Weight 127.727, kg, ONCALL, STAT, Start date: 10/06/21 15:04:00 CDT, Duration: 1 doses or times, Dose = 2.2ml/kg, Max dose = 100ml -- "To be infused by Radiology Staff ONLY" Iohexol 0 No 100 mL, Memoria 3-25 Route: l 20:04: IVP, Drug Wilder 00 Form: SOLN, Dosing Weight 127.727, kg, ONCALL, STAT, Start date: 10/06/21 15:04:00 CDT, Duration: 1 doses or times, Dose = 2.2ml/kg, Max dose = 100ml -- "To be infused by Radiology Staff ONLY" Docusate No Notes: Memoria 3-25 (Same as: l 14:00: Colace) Jason (Do Not Crush) sennosides, No Notes: Erwin benjamin MCFP 3-25 (Same as: l 14:00: Senokot) Jason Saline No Notes: Memoria Flush 0.9% 3-25 preservati l 14:00: ve free. Wilder Docusate No Notes: Memoria 3-25 (Same as: l 14:00: Colace) Wilder (Do Not Crush) sennosides, No Notes: Erwin benjamin MCFP 3-25 (Same as: l 14:00: Senokot) Wilder 00 Saline No Notes: Memoria Flush 0.9% 3-25 preservati l 14:00: ve free. Jason 00 Docusate No Notes: Memoria 3-25 (Same as: l 14:00: Colace) Jason (Do Not Crush) sennosides, No Notes: Erwin benjamin MCFP 3-25 (Same as: l 14:00: Senokot) Jason 00 Saline No Notes: Memoria Flush 0.9% 3-25 preservati l 14:00: ve free. Jason 00 Docusate No Notes: Memoria 3-25 (Same as: l 14:00: Colace) Wilder (Do Not Crush) sennosides, No Notes: Erwin benjamin MCFP 3-25 (Same as: l 14:00: Senokot) Saline No Notes: Memoria Flush 0.9% 3-25 preservati l 14:00: ve free. Wilder 00 Docusate No Notes: Memoria 3-25 (Same as: l 14:00: Colace) Wilder (Do Not Crush) sennosides, No Notes: Erwin benjamin MCFP 3-25 (Same as: l 14:00: Senokot) Saline No Notes: Memoria Flush 0.9% 3-25 preservati l 14:00: ve free. Jason 00 Docusate No Notes: Memoria 3-25 (Same as: l 14:00: Colace) Jason (Do Not Crush) sennosides, No Notes: Erwin benjamin MCFP 3-25 (Same as: l 14:00: Senokot) Wilder 00 Saline No Notes: Memoria Flush 0.9% 3-25 [...] a 3-25 (Same as: l 06:05: Ativan) Wilder 00 Methocarbam No Notes: Erwin benjamin ol 3-25 (Same l 06:05: as:Robaxin Wilder 00 ) Lorazepam No Notes: Memori a 3-25 (Same as: l 06:05: Ativan) Jason 00 Methocarbam No Notes: Erwin benjamin ol 3-25 (Same l 06:05: as:Robaxin ) Lorazepam No Notes: Memori a 3-25 (Same as: l 06:05: Ativan) Wilder 00 Methocarbam No Notes: Erwin benjamin ol 3-25 (Same l 06:05: as:Robaxin ) Lorazepam No Notes: Memori a 3-25 (Same as: l 06:05: Ativan) Methocarbam No Notes: Erwin benjamin ol 3-25 (Same l 06:05: as:Robaxin ) Lorazepam No Notes: Memori a 3-25 (Same as: l 06:05: Ativan) Methocarbam No Notes: Erwin benjamin ol 3-25 (Same l 06:05: as:Robaxin ) Lorazepam No Notes: Memori a 3-25 [...] not exceed l Hydrocodone 06:03: 4gm/day of Wilder Bitartrate 00 acetaminop 10 MG Oral hen. (Same Tablet as: Albion [Albion 325/10) 10/325] Dilaudid No Notes: Memoria 3-25 Same as l 06:03: Dilaudid Benadryl No Notes: Memoria 3-25 (Same as: l 06:03: Benadryl) Wilder phenol No Notes: Memoria 3-25 Chlorasept l 06:03: ic [place] (Same as: Chlorasept ic, Sore Throat [place]) WASTE: F/P - Black; E - Municipal Trash Bin Bisacodyl No Notes: Memori a 3-25 (Same As: l 06:03: Dulcolax, Bisco-Lax) Robaxin No Notes: Memoria 3-25 (Same l 06:03: as:Robaxin ) Melatonin 3 No Notes: Erwin benjamin MG Extended 3-25 (Same as: l Release 06:03: Melatonin) Herm philip Tablet 00 Tylenol No Notes: Do Memor ia 3-25 not exceed l 06:03: 4 gm/day. Wilder (Same as: Tylenol) Reglan No Notes: Memoria 3-25 (Same as: l 06:03: Reglan) Phenergan No Notes: Do Mem oria 3-25 not give l 06:03: IV push. (Same as: Phenergan) Saline No Notes: Memoria Flush 0.9% 3-25 preservati l 06:03: ve free. Sodium 2022-0 No 1,000 mL, Memori a Chloride 3-25 [...] 10 MG Oral hen. (Same Tablet as: Albion [Albion 325/10) 10/325] Dilaudid No Notes: Memoria 3-25 Same as l 06:03: Dilaudid Benadryl No Notes: Memoria 3-25 (Same as: l 06:03: Benadryl) Wilder 00 phenol No Notes: Memoria 3-25 Chlorasept l 06:03: ic [place] (Same as: Chlorasept ic, Sore Throat [place]) WASTE: F/P - Black; E - Municipal Trash Bin Bisacodyl No Notes: Memori a 3-25 (Same As: l 06:03: Dulcolax, Jason 00 Bisco-Lax) Robaxin No Notes: Memoria 3-25 (Same l 06:03: as:Robaxin ) Melatonin 3 No Notes: Erwin benjamin MG Extended 3-25 (Same as: l Release 06:03: Melatonin) Herm philip Tablet 00 Tylenol No Notes: Do Memor ia 3-25 not exceed l 06:03: 4 gm/day. Wilder 00 (Same as: Tylenol) Reglan No Notes: Memoria 3-25 (Same as: l 06:03: Reglan) Jason Phenergan No Notes: Do Mem oria 3-25 not give l 06:03: IV push. Wilder (Same as: Phenergan) Saline No Notes: Memoria Flush 0.9% 3-25 preservati l 06:03: ve free. Jason Sodium No 1,000 mL, Memori a Chloride 3-25 Rate: 50 l 0.9% IV 06:03: ml/hr, Wilder 1,000 mL 00 Infuse over: 20 hr, [...] Memori a 3-25 years, l 06:03: Pediatric Wilder 00 Dosing Acetaminoph No Notes: Do M emoria en 325 MG / 3-25 not exceed l Hydrocodone 06:03: 4gm/day of Jason Bitartrate 00 acetaminop 10 MG Oral hen. (Same Tablet as: Albion [Albion 325/10) 10/325] Dilaudid No Notes: Memoria 3-25 Same as l 06:03: Dilaudid Wilder 00 Benadryl No Notes: Memoria 3-25 (Same as: l 06:03: Benadryl) Wilder 00 phenol No Notes: Memoria 3-25 Chlorasept l 06:03: ic [place] Jason 00 (Same as: Chlorasept ic, Sore Throat [place]) WASTE: F/P - Black; E - Municipal Trash Bin Bisacodyl No Notes: Memori a 3-25 (Same As: l 06:03: Dulcolax, Jason Bisco-Lax) Robaxin No Notes: Memoria 3-25 (Same l 06:03: as:Robaxin ) Melatonin 3 No Notes: Erwin benjamin MG Extended 3-25 (Same as: l Release 06:03: Melatonin) Herm philip Tablet 00 Tylenol No Notes: Do Memor ia 3-25 not exceed l 06:03: 4 gm/day. Jason 00 (Same as: Tylenol) Reglan No Notes: Memoria 3-25 (Same as: l 06:03: Reglan) Wilder 00 Phenergan No Notes: Do Mem oria 3-25 not give l 06:03: IV push. Jason 00 (Same as: Phenergan) Saline No Notes: Memoria Flush 0.9% 3-25 preservati l 06:03: ve free. Wilder 00 Sodium No 1,000 mL, Memori a Chloride 3-25 Rate: 50 l 0.9% IV 06:03: ml/hr, Wilder 1,000 mL 00 Infuse over: 20 hr, [...] 10 MG Oral hen. (Same Tablet as: Albion [Albion 325/10) 10/325] Dilaudid No Notes: Memoria 3-25 Same as l 06:03: Dilaudid Benadryl No Notes: Memoria 3-25 (Same as: l 06:03: Benadryl) Jason phenol No Notes: Memoria 3-25 Chlorasept l 06:03: ic [place] (Same as: Chlorasept ic, Sore Throat [place]) WASTE: F/P - Black; E - Municipal Trash Bin Bisacodyl No Notes: Memori a 3-25 (Same As: l 06:03: Dulcolax, Jason 00 Bisco-Lax) Robaxin No Notes: Memoria 3-25 (Same l 06:03: as:Robaxin ) Melatonin 3 No Notes: Erwin benjamin MG Extended 3-25 (Same as: l Release 06:03: Melatonin) Herm philip Tablet 00 Tylenol No Notes: Do Memor ia 3-25 not exceed l 06:03: 4 gm/day. Wilder 00 (Same as: Tylenol) Reglan No Notes: [...] not exceed l Hydrocodone 06:03: 4gm/day of Wilder Bitartrate 00 acetaminop 10 MG Oral hen. (Same Tablet as: Albion [Albion 325/10) 10/325] Dilaudid No Notes: Memoria 3-25 Same as l 06:03: Dilaudid Benadryl No Notes: Memoria 3-25 (Same as: l 06:03: Benadryl) phenol No Notes: Memoria 3-25 Chlorasept l 06:03: ic [place] (Same as: Chlorasept ic, Sore Throat [place]) WASTE: F/P - Black; E - Municipal [...] Sodium No 1,000 mL, Memori a Chloride -25 Rate: 50 l 0.9% IV 06:03: ml/hr, Wilder 1,000 mL 00 Infuse over: 20 hr, [...] not exceed l Hydrocodone 06:03: 4gm/day of Wilder Bitartrate 00 acetaminop 10 MG Oral hen. (Same Tablet as: Albion [Albion 325/10) 10/325] Dilaudid No Notes: Memoria 3-25 Same as l 06:03: Dilaudid Benadryl No Notes: Memoria 3-25 (Same as: l 06:03: Benadryl) phenol No Notes: Memoria 3-25 Chlorasept l 06:03: ic [place] (Same as: Chlorasept ic, Sore Throat [place]) WASTE: F/P - Black; E - Municipal Trash Bin Bisacodyl No Notes: Memori a 3-25 (Same As: l 06:03: Dulcolax, Wilder 00 Bisco-Lax) Robaxin No Notes: Memoria 3-25 [...] preservati l 06:03: ve free. Jason 00 butalbital- 0 2021- No 2{tbl} 2 tablet, [facility] acetaminoph 18 03-18 Oral, ity of en-caff 03:45: 03:10 ONCE, 1 [place] (ESGIC) 00 :00 dose, On Medical 50-325-40 [place] Branch mg tablet 2 09/28/21 at tablet 2245, SAHARA NaCl 0.9% 2021- No 500mL at 999 [facility] ers (NS) bolus 09-29 mL/hr, 500 it y of infusion 02:30: 03:17 mL, IV [place] 500 mL 00 :00 Infusion, Medical ONCE, 1 Branch dose, On [place] 09/28/21 at 2130, STAT diphenhydrA 2021- No 25mg 25 mg, Uni vers MINE 09-29 Slow IV ity of (BENADRYL) 02:30: 01:46 Push, [place] injection 00 :00 ONCE, 1 Medical 25 mg dose, On [facility] 09/28/21 at 2130, STAT magnesium 2021- No [...] ONCE, 1 Medical 0.5 mg dose, On [place] 08/08/21 at 1930, Routine
Use approved by (Faculty): ADC PROVIDER levoFLOXaci 2021- No [id number] 750mg Take 1 Univers n 750 mg 08-09 tablet by ity o f tablet 00:00: 05:59 mouth [place] 00 :00 daily for Medical 4 days. Branch levoFLOXaci 2021- No [id number] 750mg Take 1 Univers n 750 mg 08-09 tablet by ity o f tablet 00:00: 05:59 mouth [place] 00 :00 daily for Medical 4 days. [place] OXYCODONE Yes Take by [facility] HCL/ACETAMI 1-25 mouth. ity of NOPHEN 19:49: [place] (PERCOCET 27 Medical ORAL) [place] OXYCODONE Yes Take by Unive rs HCL/ACETAMI 1-25 mouth. ity of NOPHEN 19:49: [place] (PERCOCET 27 Medical ORAL) [place] OXYCODONE Yes Take by Unive rs HCL/ACETAMI 1-25 mouth. ity of NOPHEN 19:49: [place] (PERCOCET 27 Medical ORAL) [place] OXYCODONE Yes Take by Unive rs HCL/ACETAMI 1-25 mouth. ity of NOPHEN 19:49: [place] (PERCOCET 27 Medical ORAL) [place] vancomycin 2021- No 125mg 125 mg, Un [...] of therapy: 72 hours lactobacill 2021- No [id number] .5mg Take 1 [facility] 08-08 tablet by ity of acidophilus 00:00: 05:59 mouth 2 [place] 00 :00 (two) Medical times [place] daily for 30 days. lactobacill 2021- No [id number] .5mg Take 1 [facility] 08[facility]- tablet by ity of acidophilus 00:00: 05:59 mouth 2 [place] 00 :00 (two) Medical times Branch daily for 30 days. vancomycin 2021- No [id number] 125mg Take 1 [facility] 125 mg 08-08 capsule by ity of capsule 00:00: 05:59 mouth 4 [place] 00 :00 (four) Medical times Branch daily for 5 days. vancomycin 2021- No [id number] 125mg Take 1 [facility] 125 mg 08-08 capsule by ity of capsule 00:00: 05:59 mouth 4 [place] 00 :00 (four) Medical times Branch daily for 5 days. traMADoL Yes 50mg 50 mg, [facility] (ULTRAM) 08-07 Oral, ity of tablet 50 21:26: [id number], [place] mg 10 Starting Medical on Mon Branch 08/07/21 at 1526, Until Discontinu ed, Routine, Pain (scale 4-6) levoFLOXaci No 250mg 250 mg, U nivers n 08-07 Oral, Q24H ity of (LEVAQUIN) 19:30: 23:18 ABX, First [place] tablet 250 00 :17 dose Medical mg (after Branch last modificati on) on Sat08/07/21 at 1330, Until Discontinu ed, SAHARA
Re ason for Anti-Infec tive: Empiric Therapy for Suspected Infection< br>Empiric Therapy Site: Urine
D uration of therapy: 72 hours HYDROmorpho No .5mg 0.5 mg, Un ela ne 08-06 Slow IV ity of (DILAUDID) 20:45: 18:23 Push, [place] injection 00 :44 Q6HPRN, Medical 0.5 mg Starting Branch on Sat08/06/21 at 1445, Until 08/07/21 at 1223, Routine, Pain (scale 7-10), breakthrou gh pain
Us e approved by (Faculty): ADC PROVIDER oxyCODONE-a Yes 2{tbl} 2 tablet, [facility] cetaminophe 08-06 Oral, ity of n 20:39: Q6HPRN, [place] (PERCOCET) 03 Starting Medic al 5-325 mg [...] 2021- No 1000mg 1,000 mg, [facility] (INVANZ) 08-05 IV ity of 1,000 mg in 15:45: 18:30 Piggyback, [place] NaCl 0.9% 00 :00 Q24H ABX, Medic al (NS) 50 mL First dose Bra [facility] MINI-BAG on 08/05/21 at 0945, Until [...] Sat08/04/21 at 1999, Until Discontinu ed, SAHARA
space studies faculty member approving Non-formul shanelle medication : [...] meropenem 2021- No 1g 1 g, IV [facility] ers (MERREM) 08-03 Piggyback, it y of [...] ADC PROVIDER proCHLORper Yes 10mg 10 mg, [facility] ers azine 08-03 Slow IV ity of (COMPAZINE) 09:07: Push, [place] injection 27 Q6HPRN, Medical 10 mg Starting Branch on Libra 08/03/21 at 0307, Until Discontinu ed, Routine, Nausea and Vomiting (N/V) acetaminoph Yes 650mg 650 mg, Un ela en 08-03 Oral, ity of (TYLENOL) 09:07: Q6HPRN, [place] tablet 650 10 Starting Medic al mg on Libra Branch 08/03/21 at 0307, Until Discontinu ed, Routine, Pain (scale 1-3) meropenem 2021- No 1g 1 g, IV [facility] ers (MERREM) 1 08-03 Piggyback, it y of g in NaCl 07:15: 08:49 ONCE, 1 [place] 0.9% (NS) 00 :00 dose, On Medica l 100 mL [facility] MINI-BAG 08/03/21 at 0115, Administer over 60 Minutes, 100 mL
Rest ricted use approved by: ADC PROVIDER<b r>Reason for Anti-Infec tive: Documented Infection< br>Documen lester Infection Site: Urine
D uration of Therapy: Other (see Comments) cefdinir 2021- No 300mg 300 mg, [facility] ers (OMNICEF) 08-01 Oral, ity of capsule [...] piggyback 1915, 50 mL cefdinir 2021- No [id number] 300mg Take 1 U nivers 300 mg 07-31 capsule by ity of capsule 00:00: 05:59 mouth [place] 00 :00 every 12 Medical (twelve) Branch hours for 10 days. cefdinir 2021-0 2021- No [id number] 300mg Take 1 U nivers 300 mg [...] 07-29 IV ity of (PHENERGAN) 22:46: 23:00 [place], [place] 12.5 mg in 00 :00 ONCE, 1 Medica l NaCl 0.9% dose, On Branch (NS) 50 mL Sat piggyback 07/29/21 at 1700, 50 mL FENTanyl PF 2021- No 50ug 50 mcg, Un ela (SUBLIMAZE 07-29 Slow IV ity o f (PF)) 22:45: 23:00 Push, [place] injection 00 :00 ONCE, 1 Medical 50 mcg dose, On Branch 07/29/21 at 1645, Routine methocarbam Yes [id number] 1000mg Take 2 Univers oL 500 mg 1-15 tablets by ity of tablet 00:00: mouth (four) Medical times Branch daily as needed for Pain (scale 1-3). methocarbam 2021-0 Yes [id number] 1000mg Take 2 Univers oL 500 mg 1-15 tablets by ity of tablet 00:00: mouth (four) Medical times Branch daily as needed for Pain (scale 1-3). methocarbam 2021-0 Yes [id number] 1000mg Take 2 Univers oL 500 mg 1-15 tablets by ity of tablet 00:00: mouth (four) Medical times Branch daily as needed for Pain (scale 1-3). methocarbam 2021-0 Yes [id number] 1000mg Take 2 Univers oL 500 mg 1-15 tablets by ity of tablet 00:00: mouth (four) Medical times Branch daily as needed for Pain (scale 1-3). methocarbam 2021-0 Yes [id number] 1000mg Take 2 Univers oL 500 mg 1-15 tablets by ity of tablet 00:00: mouth (four) Medical times Branch daily as needed for Pain (scale 1-3). methocarbam 2021-0 Yes [id number] 1000mg Take 2 Univers oL 500 mg 1-15 tablets by ity of tablet 00:00: mouth (four) Medical times Branch daily as needed for Pain (scale 1-3). methocarbam 2021-0 2021- No [id number] 1000mg Take 2 Univers oL 500 mg 1-15 05-11 tablets by ity of tablet 00:00: 00:00 mouth 4 00 :00 (four) Medical times Branch daily [...] 06/07/21 at 1615, Routine fidaxomicin 2020-07 Yes [id number] 200mg Take 1 Univers 200 mg 1-24 tablet by ity of tablet 00:00: mouth 2 00 (two) Medical times Branch daily. proMETHazin 2020-07 Yes [id number] 25mg Take 1 Univers e 25 mg 1-24 tablet by ity of tablet 00:00: mouth [place] 00 every 6 Medical (six) Branch hours as needed for Nausea and Vomiting (N/V). fidaxomicin 2020-07 Yes [id number] 200mg Take 1 Univers 200 mg 1-24 tablet by ity of tablet 00:00: mouth 2 [place] (two) Medical times Branch daily. proMETHazin 2020-07 Yes [id number] 25mg Take 1 Univers e 25 mg 1-24 tablet by ity of tablet 00:00: mouth [place] 00 every 6 Medical (six) Branch hours as needed for Nausea and Vomiting (N/V). cholestyram 2020-07 Yes Univer s ine 4 gram 1-24 ity of packet 00:00: [place] Medical Branch fidaxomicin 2020-07 Yes [id number] 200mg Take 1 Univers 200 mg 1-24 tablet by ity of tablet 00:00: mouth 2 [place] (two) Medical times Branch daily. proMETHazin 2020-07 Yes [id number] 25mg Take 1 Univers e 25 mg 1-24 tablet by ity of tablet 00:00: mouth [place] 00 every 6 Medical (six) Branch hours as needed for Nausea and Vomiting (N/V). cholestyram 2020-07 Yes Univer s ine 4 gram 1-24 ity of packet 00:00: [place] Medical Branch cholestyram 2020-07 Yes Univer s ine 4 gram 1-24 ity of packet 00:00: [place] Medical Branch cholestyram 2020-07 Yes Univer s ine 4 gram 1-24 ity of packet 00:00: [place] 00 Medical Branch cholestyram 2020-07 Yes Univer s ine 4 gram 1-24 ity of packet 00:00: [place] Medical Branch cholestyram 2020-07 Yes Univer s ine 4 gram 1-24 ity of packet 00:00: [place] 00 Medical Branch fidaxomicin 2020-07 Yes [id number] 200mg Take 1 Univers 200 mg 1-24 tablet by ity of tablet 00:00: mouth 2 [place] 00 (two) Medical times Branch daily. proMETHazin 2020-07 Yes [id number] 25mg Take 1 Univers e 25 mg 1-24 tablet by ity of tablet 00:00: mouth [place] 00 every 6 Medical (six) Branch hours as needed for Nausea and Vomiting (N/V). cholestyram 2020-07- No Unive rs ine 4 gram -24 05-11 ity of packet 00:00: 00:00 [place] 00 :00 Medical Branch fidaxomicin 2020-07- No [id number] 200mg Take 1 Univers 200 mg -24 -25 tablet by ity of tablet 00:00: 00:00 mouth 2 [place] 00 :00 (two) Medical times Branch daily. proMETHazin 2020-07- No [id number] 25mg Take 1 Univers e 25 mg -24 -25 tablet by ity of tablet 00:00: 00:00 mouth [place] 00 :00 every 6 Medical (six) Branch hours as needed for Nausea and Vomiting (N/V). FENTanyl PF No 50ug 50 mcg, Un ela (SUBLIMAZE 5- 05-10 Intravenou it y of (PF)) 02:45: 01:34 s, ONCE, 1 [place] injection 00 :00 dose, Sun Medic al 50 mcg 11/20/20 at Branch 2145, Routine cefTRIAXone 2020- No 1000mg 1,000 mg, Univers (ROCEPHIN) 5-10 05-10 IV ity of 1,000 mg in 02:30: 01:55 Piggyback, [place] NaCl 0.9% 00 :00 ONCE, 1 Medical (NS) 50 mL dose, Sun Bran ch MINI-BAG 11/20/20 at 2130, 50 mL
Reas on for Anti-Infec tive: Documented Infection< br>Documen lester Infection Site: Urine
D uration of Therapy: 7 days famotidine 2020- No 20mg 20 mg, Univ ers (PEPCID 5-10 05-10 Slow IV ity of (PF)) 01:00: 00:12 Push, [place] injection 00 :00 ONCE, 1 Medical 20 mg dose, Sun Branch 11/20/20 at 2000, SAHARA proMETHazin 2020- No 25mg 25 mg, IV Univers e 5- 05-10 Piggyback, ity of (PHENERGAN) 00:45: 00:11 [place]CE[place] mg in 00 :00 dose, Sun Medica l NaCl 0.9% 11/20/[address] [facility] h (NS) 50 mL 1945, 50 piggyback mL FENTanyl PF 2020- No 50ug 50 mcg, Un ela (SUBLIMAZE 11-21 05-10 Intravenou it y of (PF)) 00:45: 00:12 s, ONCE, 1 [place] injection 00 :00 dose, Sun Medic al 50 mcg 11/20/20 at Branch 1945, Routine NaCl 0.9% 2020- No 1000mL at 999 Uni vers (NS) bolus 5-10 05-10 mL/hr, ity of infusion 00:00: 01:47 1,000 mL, Tim as 1,000 mL 00 :00 IV Medical Infusion, [place] ONCE, 1 dose, [place] 11/20/20 at 1900, SAHARA cefdinir 2020- No [id number] 300mg Take 1 U nivers 300 mg 11-20 05-20 capsule by ity of capsule 00:00: 04:59 mouth 2 [place] 00 :00 (two) Medical times [place] daily for 10 days. buPROPion 2020- No 150mg QD Take [address] [facility] (WELLBUTRIN 17 -16 tablet [facility] XL) 150 MG 00:00: 23:59 (150 mg Med ical 24 hr 00 :00 total) by Center tablet mouth daily. citalopram 2020- No 40mg QD Take [address] [facility] (CELEXA) 40 -17 -16 tablet (40 L ukes MG tablet 00:00: 23:59 mg total) Me dical 00 :00 by mouth Center daily. oxyCODONE-a Yes 1{tbl} Take [address] cetaminophe 1-16 tablet by [facility] kitchen 14:44: mouth Medical (PERCOCET) 50 every 4 [...] I St cetaminophe 1-16 tablet by Charly n 14:44: mouth Medical (PERCOCET) 50 every [...] (two) times daily Use as directed. insulin 2019-2020- No 0U Inject [facility] lispro 1-16 01-15 0-12 [facility] (HUMALOG) 00:00: 23:59 subcutaneo M edical 100 unit/mL 00 :00 usly 3 Center injection (three) times daily before meals. insulin 2019-2020- No 25U Inject [address] [facility] [address] lispro [...] Total Volume: 1,000, Start date: 05/22/18 5:04:00 STITCH CLEANER, Duration: 30 day, Stop date: 06/21/18 5:03:00 STITCH CLEANER, 2.4, m2 normal 2017-07 No 1,000 mL, Memori a saline 0.9% 1-08 Rate: 100 l IV 1,000 mL 11:04: ml/hr, Herm philip 00 Infuse over: 10 hr, Route: IV, Dosing Weight 131.818 kg, Total Volume: 1,000, Start date: 05/22/18 5:04:00 STITCH CLEANER, Duration: 30 day, Stop date: 06/21/18 5:03:00 STITCH CLEANER, 2.4, m2 normal 2017-07 No 1,000 mL, Memori a saline 0.9% 1-08 Rate: 100 l IV 1,000 mL 11:04: ml/hr, Herm philip 00 Infuse over: 10 hr, Route: IV, Dosing Weight 131.818 kg, Total Volume: 1,000, Start date: 05/22/18 5:04:00 STITCH CLEANER, Duration: 30 day, Stop date: 06/21/18 5:03:00 STITCH CLEANER, 2.4, m2 normal 2017-07 No 1,000 mL, Memori a saline 0.9% 1-08 Rate: 100 l IV 1,000 mL 11:04: ml/hr, Herm philip 00 Infuse over: 10 hr, Route: IV, Dosing Weight 131.818 kg, Total Volume: 1,000, Start date: 05/22/18 5:04:00 STITCH CLEANER, Duration: 30 day, Stop date: 06/21/18 5:03:00 STITCH CLEANER, 2.4, m2 normal 2017-07 No 1,000 mL, Memori a saline 0.9% 1-08 Rate: 100 l IV 1,000 mL 11:04: ml/hr, Herm philip 00 Infuse over: 10 hr, Route: IV, Dosing Weight 131.818 kg, Total Volume: 1,000, Start date: 05/22/18 5:04:00 STITCH CLEANER, Duration: 30 day, Stop date: 06/21/18 5:03:00 STITCH CLEANER, 2.4, m2 normal 2017-07 No 1,000 mL, Memori a saline 0.9% 1-08 Rate: 100 l IV 1,000 mL 11:04: ml/hr, Herm philip 00 Infuse over: 10 hr, Route: IV, Dosing Weight 131.818 kg, Total Volume: 1,000, Start date: 05/22/18 5:04:00 STITCH CLEANER, Duration: 30 day, Stop date: 06/21/18 5:03:00 STITCH CLEANER, 2.4, m2 Magnesium 2017-07 No Notes: Memori a Sulfate - WASTE: F/P l 10:36: - Sink; E [place] - Municipal Trash Bin Isolyte S 2017-07 No Notes: Memori a PH-7.4 - (Same as: l (Bolus) IV 10:36: Isolyte S He rmann 00 PH 7.4) Magnesium 2017-07 No Notes: Memori a Sulfate - WASTE: F/P l 10:36: - Sink; E [place] - Municipal Trash Bin Isolyte S 2017-07 No Notes: Memori a PH-7.4 - (Same as: l (Bolus) IV 10:36: Isolyte [...] WASTE: F/P l 10:36: - Sink; E [place] - Municipal Trash Bin Isolyte S 2017-07 No Notes: Memori a PH-7.4 1-08 (Same as: l (Bolus) IV 10:36: Isolyte S He rmann 00 PH 7.4) Magnesium 2017-07 No Notes: Memori a Sulfate 1-08 WASTE: F/P l 10:36: - Sink; E [place] - Municipal Trash Bin Isolyte S 2017-07 [...] kg, Priority: STAT, Start date: 05/22/18 4:35:00 STITCH CLEANER, Stop date: 05/22/18 4:35:00 STITCH CLEANER Phenergan 2017-07 No 12.5 mg, Erwin benjamin 1-08 0.5 mL, l 10:35: Route: Jason 00 IVPB, Drug form: INJ, ONCE, Dosing Weight 131.818, kg, Priority: STAT, Start date: 05/22/18 4:35:00 STITCH CLEANER, Stop date: 05/22/18 4:35:00 STITCH CLEANER Phenergan 2018-1 No 12.5 mg, Erwin benjamin 1-08 0.5 mL, l 10:35: Route: [place] 00 IVPB, Drug form: INJ, ONCE, Dosing Weight 131.818, kg, Priority: STAT, Start date: 05/22/18 4:35:00 STITCH CLEANER, Stop date: 05/22/18 4:35:00 STITCH CLEANER Phenergan 2018-1 No 12.5 mg, Erwin benjamin 1-08 0.5 mL, l 10:35: Route: [place] 00 IVPB, Drug form: INJ, ONCE, Dosing Weight 131.818, kg, Priority: STAT, Start date: 05/22/18 4:35:00 STITCH CLEANER, Stop date: 05/22/18 4:35:00 STITCH CLEANER Phenergan 2018-1 No 12.5 mg, Erwin benjamin 1-08 0.5 mL, l 10:35: Route: [place] IVPB, Drug form: INJ, ONCE, Dosing Weight 131.818, kg, Priority: STAT, Start date: 05/22/18 4:35:00 STITCH CLEANER, Stop date: 05/22/18 4:35:00 STITCH CLEANER Phenergan 2018- No 12.5 mg, Erwin benjamin 1-08 0.5 mL, l 10:35: Route: [place] IVPB, Drug form: INJ, ONCE, Dosing Weight 131.818, kg, Priority: STAT, Start date: 05/22/18 4:35:00 STITCH CLEANER, Stop date: 05/22/18 4:35:00 STITCH CLEANER Wellbutrin Wellbutrin 2017-07 No 1{table BID Wellbutrin SR 150 MG SR 150 MG 0-04 t_in_th SR 150 MG 00:00: e_morni 00 ng} Wellbutrin Wellbutrin 2017-07 No 1{table BID Wellbutrin SR 150 MG SR 150 MG 0-04 t_in_th SR 150 MG 00:00: e_morni 00 ng} Wellbutrin Wellbutrin 2018 No 1{table BID SR 150 MG SR 150 MG 0-04 t_in_th 00:00: e_morni 00 ng} Wellbutrin Wellbutrin 2018 No 1{table BID Wellbutrin SR 150 MG [...] S pirit e e 00:00: - [facility] Seroquel Seroquel Yes Na Gamble 1 tablet Common 7-16 Spirit 00:00: - [facility] Docusate Yes 100 mg = 1 Mem oria Sodium 100 5-08 cap, PO, l MG Oral 14:56: BID, 0 [place] Capsule 00 Refill(s) Zosyn Yes 0 Memoria 5-08 Refill(s) l 14:56: Jason 00 celecoxib 0 Yes 200 mg = 1 Me moria [...] n 5-08 Daily, 0 l 14:56: Refill(s) [place] 00 methocarbam Yes 1,000 mg = Memoria ol 500 mg 5-08 2 tab, PO, l oral tablet 14:56: Q8H, 0 Herm philip 00 Refill(s) LORazepam Yes 0.5 mg = 1 Me moria 0.5 mg oral 5-08 tab, PO, l tablet 14:56: Q8H, PRN [place] 00 Anxiety, 0 Refill(s) Lidocaine Yes 3 patch, Erwin benjamin Hydrochlori 5-08 TOP, l de 0.05 14:56: Daily, Jason MG/MG 00 Remove Transdermal after 12 Patch hours, 0 [Lidoderm] Refill(s) Docusate Yes 100 mg = 1 Mem oria Sodium 100 5-08 cap, PO, l MG Oral 14:56: BID, 0 [place] Capsule 00 Refill(s) Zosyn Yes 0 Memoria 5-08 Refill(s) l 14:56: [place] 00 celecoxib Yes 200 mg = 1 [...] cap, PO, l capsule 14:56: BID, 0 [place] 00 Refill(s) ascorbic Yes 500 mg = [...] n 5-08 Daily, 0 l 14:56: Refill(s) [place] 00 methocarbam Yes 1,000 mg = Memoria ol 500 mg 5-08 2 tab, PO, l oral tablet 14:56: Q8H, 0 Herm philip 00 Refill(s) LORazepam Yes 0.5 mg = 1 Me moria 0.5 mg oral 5-08 tab, PO, l tablet 14:56: Q8H, PRN [place] 00 Anxiety, 0 Refill(s) Lidocaine Yes 3 patch, Erwin benjamin Hydrochlori 5-08 TOP, l de 0.05 14:56: Daily, Jason MG/MG 00 Remove Transdermal after 12 Patch hours, 0 [Lidoderm] Refill(s) Docusate Yes 100 mg = 1 Mem oria Sodium 100 5-08 cap, PO, l MG Oral 14:56: BID, 0 [place] Capsule 00 Refill(s) Zosyn Yes 0 Memoria 5-08 Refill(s) l 14:56: [place] 00 celecoxib Yes 200 mg = 1 [...] Q8H, 0 Herm philip 00 Refill(s) LORazepam 2018-0 Yes 0.5 mg = 1 Me moria 0.5 mg oral 5-08 tab, PO, l tablet 14:56: Q8H, PRN [place] 00 Anxiety, 0 Refill(s) Lidocaine 0 Yes 3 patch, Erwin benjamin Hydrochlori 5-08 TOP, l de 0.05 14:56: Daily, Jason MG/MG 00 Remove Transdermal after 12 Patch hours, 0 [Lidoderm] Refill(s) Docusate Yes 100 mg = 1 Mem oria Sodium 100 5-08 cap, PO, l MG Oral 14:56: BID, 0 [place] Capsule 00 Refill(s) Zosyn Yes 0 Memoria 5-08 Refill(s) l 14:56: [place] 00 celecoxib Yes 200 mg = 1 Me moria 200 mg oral 5-08 cap, PO, l capsule 14:56: BID, 0 [place] 00 Refill(s) ascorbic Yes 500 mg = 1 Mem oria acid 5-08 tab, PO, l 14:56: BID, 0 [place] 00 Refill(s) acetaminoph Yes 1,000 mg = [...] tab, PO, l tablet 14:56: Q8H, PRN [place] 00 Anxiety, 0 Refill(s) Lidocaine Yes 3 patch, Erwin benjamin Hydrochlori 5-08 TOP, l de 0.05 14:56: Daily, Wilder MG/MG 00 Remove Transdermal after 12 Patch hours, 0 [Lidoderm] Refill(s) Docusate Yes 100 mg = 1 Mem oria Sodium 100 5-08 cap, PO, l MG Oral 14:56: BID, 0 [place] Capsule 00 Refill(s) Zosyn Yes 0 Memoria 5-08 Refill(s) l 14:56: [place] 00 celecoxib Yes 200 mg = 1 Me moria 200 mg oral 5-08 cap, PO, l capsule 14:56: BID, 0 [place] 00 Refill(s) ascorbic Yes 500 mg = 1 Mem oria acid 5-08 tab, PO, l 14:56: BID, 0 [place] 00 Refill(s) acetaminoph Yes 1,000 mg = [...] n 5-08 Daily, 0 l 14:56: Refill(s) [place] methocarbam Yes 1,000 mg = Memoria ol [...] Notes: Memoria 5-06 (Same l 21:00: as:Robaxin [place] 00 ) Robaxin No Notes: Memoria 5-06 (Same l 21:00: as:Robaxin [place] 00 ) Robaxin No Notes: Memoria 5-06 (Same l 21:00: as:Robaxin [place] 00 ) Robaxin No Notes: Memoria 5-06 (Same l 21:00: as:Robaxin Jason 00 ) Robaxin No Notes: Memoria 5-06 (Same l 21:00: as:Robaxin [place] ) Robaxin No Notes: Memoria 5-06 (Same l 21:00: as:Robaxin [place] 00 ) Oxycodone No Notes: Memori a Hydrochlori 5-06 (Same as: l de 5 MG 18:06: Roxicodone Herm philip Oral Tablet ) Oxycodone No Notes: Memori a Hydrochlori [...] Memoria 5-06 (Same as: l 15:18: Ativan) Wilder Ativan No Notes: Memoria 5-06 (Same as: l 15:18: Ativan) Jason Trazodone No Notes: Memori a Hydrochlori 5-06 (Same As: l de 50 MG 02:00: Desyrel) Kristen nn Oral Tablet 00 remove No Notes: Memoria patch 5-06 Remove l 02:00: patch 12 [place] 00 hours after applicatio n each day. Trazodone No Notes: Memori a Hydrochlori 5-06 (Same As: l de 50 MG 02:00: Desyrel) Kristen nn Oral Tablet 00 remove No Notes: Memoria patch 5-06 Remove l 02:00: patch 12 [place] 00 hours after applicatio n each day. [...] patch 5-06 Remove l 02:00: patch 12 [place] 00 hours after applicatio n each day. Trazodone No Notes: Memori a Hydrochlori 5-06 (Same As: l de 50 MG 02:00: Desyrel) Kristen nn Oral Tablet 00 remove No Notes: Memoria patch 5-06 Remove l 02:00: patch 12 [place] 00 hours after applicatio n each day. [...] MG 22:01: Roxicodone Herm philip Oral Tablet ) Oxycodone No Notes: Memori a Hydrochlori 5-05 (Same as: l de 5 MG 22:01: Roxicodone Herm philip Oral Tablet 00 ) Oxycodone No Notes: Memori a Hydrochlori 5-05 (Same as: l de 5 MG 22:01: Roxicodone Herm philip Oral Tablet ) Oxycodone No Notes: Memori a Hydrochlori 5-05 (Same as: l de 5 MG 22:01: Roxicodone Herm philip Oral Tablet ) Celebrex No Notes: Memoria 5-05 NSAID. l 22:00: Please [place] 00 check indication . Not for seizure. (Same As: CeleBREX) Celebrex No Notes: Memoria 5-05 NSAID. l 22:00: Please [place] 00 check indication . Not for seizure. (Same As: CeleBREX) Celebrex No Notes: Memoria 5-05 NSAID. l 22:00: Please Jason 00 check indication . Not for seizure. (Same As: CeleBREX) Celebrex No Notes: Memoria 5-05 NSAID. l 22:00: Please Jason 00 check indication . Not for seizure. (Same As: CeleBREX) Celebrex No Notes: Memoria 5-05 NSAID. l 22:00: Please [place] 00 check indication . Not for seizure. (Same As: CeleBREX) Celebrex No Notes: Memoria 5-05 NSAID. l 22:00: Please [place] 00 check indication . Not for seizure. (Same As: CeleBREX) Vancomycin 2018-0 No 2001 mg: Me moria 5-05 infuse l 21:00: over 2.5 Wilder 00 hours Vancomycin 2018-0 No 2001 mg: Me moria 5-05 infuse l 21:00: over 2.5 Wilder 00 hours Vancomycin 2018-0 No 2001 mg: Me moria 5-05 infuse l 21:00: over 2.5 Jason 00 hours Vancomycin 2018-0 No 2001 mg: Me moria 5-05 infuse l 21:00: over 2.5 [place] 00 hours Vancomycin 2018-0 No 2001 mg: Me moria 5-05 infuse l 21:00: over 2.5 [place] 00 hours Vancomycin 2018-0 No 2001 mg: Me moria 5-05 infuse l 21:00: over 2.5 [place] 00 hours Lidocaine 2018-0 No Notes: Memori a Hydrochlori 5-05 Apply only l de 0.05 14:00: once for Christian n MG/MG 00 up to 12 Transdermal hours in a Patch 24-hour [Lidoderm] period (12 hours on and 12 hours off). (Same as: Lidoderm) "Remove old patch before applicatio n of new patch" Lidocaine 2017-0 No Notes: Memori a Hydrochlori [...] before applicatio n of new patch" Lidocaine 2017-0 No Notes: Memori a Hydrochlori [...] 5-04 not give l 22:40: IV push. Wilder 00 (Same as: Phenergan) Dilaudid No Notes: Memoria 5-04 Same as l 22:40: Dilaudid Wilder 00 Phenergan No Notes: Do Mem oria 5-04 not give l 22:40: IV push. Wilder 00 (Same as: Phenergan) Dilaudid No Notes: Memoria 5-04 Same as l 22:40: Dilaudid [place] 00 Phenergan No Notes: Do Mem oria 5-04 not give l 22:40: IV push. Jason 00 (Same as: Phenergan) Dilaudid No Notes: Memoria 5-04 Same as l 22:40: Dilaudid Jason 00 Phenergan No Notes: Do Mem oria 5-04 not give l 22:40: IV push. Wilder 00 (Same as: Phenergan) Dilaudid No Notes: Memoria 5-04 Same as l 22:40: Dilaudid Jason 00 Phenergan No Notes: Do Mem oria 5-04 not give l 22:40: IV push. Wilder 00 (Same as: Phenergan) Dilaudid No Notes: Memoria 5-04 Same as l 22:40: Dilaudid [place] 00 Phenergan No Notes: Do Mem oria 5-04 not give l 22:40: IV push. Jason 00 (Same as: Phenergan) Dilaudid No Notes: Memoria 5-04 Same as l 22:40: Dilaudid Tramadol No Notes: Not Mem oria 5-04 to exceed l 22:00: 400mg/day. Wilder 00 (Same As: Ultram) gabapentin No Notes: Memor ia 5-04 (Same as: l 22:00: Neurontin) Jason 00 Acetaminoph No Notes: Max Memoria en 5-04 acetaminop l 22:00: hen 4000 Wilder 00 mg/day (4 gm/day). (Same as: Tylenol Extra Strength) Robaxin No Notes: Memoria 5-04 (Same l 22:00: as:Robaxin Wilder 00 ) Tramadol No Notes: Not Mem oria 5-04 to exceed l 22:00: 400mg/day. Jason 00 (Same As: Ultram) gabapentin No Notes: Memor ia 5-04 (Same as: l 22:00: Neurontin) Wilder 00 Acetaminoph No Notes: Max Memoria en 5-04 acetaminop l 22:00: hen 4000 Wilder 00 mg/day (4 gm/day). (Same as: Tylenol Extra Strength) Robaxin No Notes: Memoria 5-04 (Same l 22:00: as:Robaxin Jason 00 ) Tramadol No Notes: Not Mem oria 5-04 to exceed l 22:00: 400mg/day. Wilder 00 (Same As: Ultram) gabapentin No Notes: Memor ia 5-04 (Same as: l 22:00: Neurontin) Wilder 00 Acetaminoph No Notes: Max Memoria en 5-04 acetaminop l 22:00: hen 4000 Wilder 00 mg/day (4 gm/day). (Same as: Tylenol Extra Strength) Robaxin No Notes: Memoria 5-04 (Same l 22:00: as:Robaxin Wilder ) Tramadol No Notes: Not Mem oria 5-04 to exceed l 22:00: 400mg/day. Wilder 00 (Same As: Ultram) gabapentin No Notes: Memor ia 5-04 (Same as: l 22:00: Neurontin) Wilder 00 Acetaminoph No Notes: Max Memoria en 5-04 acetaminop l 22:00: hen 4000 Jason 00 mg/day (4 gm/day). (Same as: Tylenol Extra Strength) Robaxin No Notes: Memoria 5-04 (Same l 22:00: as:Robaxin Jason 00 ) Tramadol No Notes: Not Mem oria 5-04 to exceed l 22:00: 400mg/day. Wilder 00 (Same As: Ultram) gabapentin No Notes: Memor ia 5-04 (Same as: l 22:00: Neurontin) Wilder 00 Acetaminoph No Notes: Max Memoria en [...] Notes: Memoria 5-04 (Same l 22:00: as:Robaxin Wilder 00 ) Oxycodone No Notes: Memori a Hydrochlori 5-04 (Same as: l de 5 MG 21:33: Roxicodone Herm philip Oral Tablet 00 ) Oxycodone No Notes: Memori a Hydrochlori 5-04 (Same as: l de 5 MG 21:33: Roxicodone Herm hpilip Oral Tablet 00 ) Oxycodone No Notes: [...] a 5-04 0.25 mL, l 16:01: Route: Wilder 00 IVP, Drug form: INJ, ONCE, Start date: 11/15/17 11:01:00 CDT, Stop date: 11/15/17 11:01:00 CDT Dilaudid 2018-0 No 0.5 mg, Memori a 5-04 0.25 mL, l 16:01: Route: Wilder 00 IVP, Drug form: INJ, ONCE, Start date: 11/15/17 11:01:00 CDT, Stop date: 11/15/17 11:01:00 CDT Dilaudid 2018-0 No 0.5 mg, Memori a 5-04 0.25 mL, l 16:01: Route: Wilder 00 IVP, Drug form: INJ, ONCE, Start date: 11/15/17 11:01:00 CDT, Stop date: 11/15/17 11:01:00 CDT Dilaudid 2018-0 No 0.5 mg, Memori a 5-04 0.25 mL, l 16:01: Route: Wilder 00 IVP, Drug form: INJ, ONCE, Start date: 11/15/17 11:01:00 CDT, Stop date: 11/15/17 11:01:00 CDT Dilaudid 2018-0 No 0.5 mg, Memori a 5-04 0.25 mL, l 16:01: Route: Wilder IVP, Drug form: INJ, ONCE, Start date: 11/15/17 11:01:00 CDT, Stop date: 11/15/17 11:01:00 CDT Dilaudid 2018-0 No 0.5 mg, Memori a 5-04 0.25 mL, l 16:01: Route: Wilder IVP, Drug form: INJ, ONCE, Start date: 11/15/17 11:01:00 CDT, Stop date: 11/15/17 11:01:00 CDT Phenergan 2018-0 No Notes: Memori a 5-04 (Same as: l 15:43: Phenergan) Dilaudid 2018-0 No 2 mg, Memoria 5-04 Route: l 15:43: IVP, ONCE, Dosing Weight 127.027, kg, Priority: STAT, Start date: 11/15/17 10:43:00 CDT, Stop date: 11/15/17 10:43:00 CDT Phenergan 2018-0 No Notes: Memori a 5-04 (Same as: l 15:43: Phenergan) Dilaudid 2017-0 No 2 mg, Memoria 5-04 Route: l 15:43: IVP, ONCE, Dosing Weight 127.027, kg, Priority: STAT, Start date: 11/15/17 10:43:00 CDT, Stop date: 11/15/17 10:43:00 CDT Phenergan 2018-0 No Notes: Memori a 5-04 (Same as: l 15:43: Phenergan) Dilaudid 2018-0 No 2 mg, Memoria 5-04 Route: l 15:43: IVP, ONCE, Dosing Weight 127.027, kg, Priority: STAT, Start date: 11/15/17 10:43:00 CDT, Stop date: 11/15/17 10:43:00 CDT Phenergan 2018-0 No Notes: Memori a 5-04 (Same as: l 15:43: Phenergan) Wilder 00 Dilaudid 2018-0 No 2 mg, Memoria [...] Memoria Sulfate 5-04 (Zinc l 14:00: sulfate Wilder 00 capsule) - 220 mg Zinc sulfate = 50 mg elemental zinc Same as Zinc Sulfate ascorbic No Notes: Memoria acid 5-04 (Same as: l 14:00: Vitamin C) Jason multivitami No Notes: Erwin benjamin n 5-04 (Same l 14:00: as:Thera) Wilder WASTE: F/P - Black; E - Municipal Trash Bin Take with food. Docusate No Notes: Memoria 5-04 (Same as: l 14:00: Colace) Jason (Do Not Crush) Zinc No Notes: Memoria Sulfate 5-04 (Zinc l 14:00: sulfate Wilder 00 capsule) - 220 mg Zinc sulfate = 50 mg elemental zinc Same as Zinc Sulfate ascorbic No Notes: Memoria acid 5-04 (Same as: l 14:00: Vitamin C) Wilder multivitami No Notes: Erwin benjamin n 5-04 (Same l 14:00: as:Thera) Wilder WASTE: F/P - Black; E - Municipal [...] benjamin n 5-04 (Same l 14:00: as:Thera) Wilder WASTE: F/P - Black; E - Municipal Trash Bin Take with food. Docusate No Notes: Memoria 5-04 (Same as: l 14:00: Colace) Wilder (Do Not Crush) Zinc No Notes: Memoria Sulfate 5-04 (Zinc l 14:00: sulfate Wilder 00 capsule) - 220 mg Zinc sulfate = 50 mg elemental zinc Same as Zinc Sulfate ascorbic No Notes: Memoria acid 5-04 (Same as: l 14:00: Vitamin C) Wilder multivitami No Notes: Erwin benjamin n 5-04 (Same l 14:00: as:Thera) WASTE: F/P - Black; E - Municipal Trash Bin Take with food. Docusate No Notes: Memoria 5-04 (Same as: l 14:00: Colace) (Do Not Crush) Zinc No Notes: Memoria Sulfate - (Zinc l 14:00: sulfate Jason 00 capsule) - 220 mg Zinc sulfate = 50 mg elemental zinc Same as Zinc Sulfate ascorbic No Notes: Memoria acid -04 (Same as: l 14:00: Vitamin C) Jason 00 multivitami No Notes: Erwin benjamin n -04 (Same l 14:00: as:Thera) WASTE: F/P - Black; E - Municipal Trash Bin Take with food. Naproxen No Notes: Memoria 5-04 (Same as: l 07:00: Naprosyn) Wilder 00 Take with food. Zosyn No Notes: Memoria 5-04 (Same as: l 07:00: Zosyn) Wilder 00 Dosing based on Piperacill in component [...] ia -04 (Same as: l 07:00: Lovenox) Wilder Naproxen No Notes: Memoria 5-04 (Same as: l 07:00: Naprosyn) Wilder 00 Take with food. Zosyn No Notes: Memoria 5-04 (Same as: l 07:00: Zosyn) Jason Dosing based on Piperacill in component MEDICATION [...] ia 5-04 (Same as: l 07:00: Lovenox) Wilder 00 Naproxen 2017-0 No Notes: Memoria 5-04 (Same as: l 07:00: Naprosyn) Wilder 00 Take with food. Zosyn 0 No Notes: Memoria 5-04 (Same as: l 07:00: Zosyn) Jason 00 Dosing based on Piperacill in component MEDICATION WASTE Product Size: 3375 mg Product Wasted: ___ mg Vancomycin 2018-0 No 2001 mg: Me moria 5-04 infuse l 07:00: over 2.5 Wilder 00 hours For adult patients only: Round to nearest 250 mg per Medical Staff approval MEDICATION WASTE Product Size: 1000 mg Product Wasted: ___ mg Enoxaparin 2018-0 No Notes: Memor ia 5-04 (Same as: l 07:00: Lovenox) Jason 00 Naproxen 0 No Notes: Memoria 5-04 (Same as: l 07:00: Naprosyn) Jason 00 Take with food. Zosyn No Notes: Memoria 5-04 (Same as: l 07:00: Zosyn) Wilder 00 Dosing based on Piperacill in component MEDICATION WASTE Product Size: 3375 mg Product Wasted: ___ mg Vancomycin 2018-0 No 2001 mg: Me moria 5-04 infuse l 07:00: over 2.5 Wilder 00 hours For adult patients only: Round to nearest 250 mg per Medical Staff approval MEDICATION WASTE Product Size: 1000 mg Product Wasted: ___ mg Enoxaparin 2018-0 No Notes: Memor ia 5-04 (Same as: l 07:00: Lovenox) Jason 00 Naproxen 2017-0 No Notes: Memoria 5-04 (Same as: l 07:00: Naprosyn) Jason 00 Take with food. Zosyn 0 No Notes: Memoria 5-04 (Same as: l [...] 1000 mg Product Wasted: ___ mg Enoxaparin 2017- No Notes: Memor ia -04 (Same as: l 07:00: Lovenox) Wilder Naproxen 2017- No Notes: Memoria 5-04 (Same as: l 07:00: Naprosyn) Wilder 00 Take with food. Zosyn No Notes: Memoria 5-04 (Same as: l 07:00: Zosyn) Wilder 00 Dosing based on Piperacill in component MEDICATION WASTE Product Size: 3375 mg Product Wasted: ___ mg Vancomycin 2017-0 No 2001 mg: Me moria 5-04 infuse l 07:00: over 2.5 Jason 00 hours For adult patients only: Round to nearest 250 mg per Medical Staff approval MEDICATION WASTE Product Size: 1000 mg Product Wasted: ___ mg Enoxaparin 2017- No Notes: Memor ia 5-04 (Same as: [...] - not exceed l 06:46: 4 gm/day. Jason 00 (Same as: Tylenol) Acetaminoph No Notes: Erwin benjamin en 325 MG / 5-04 (Same as: l Hydrocodone 06:46: [place] Kristen nn Bitartrate 00 325/5) Do 5 [...] 0.9% 5-04 (Same as: l 06:46: BD Wilder 00 Posiflush) Acetaminoph No Notes: Do M emoria en 5-04 not exceed l 06:46: 4 gm/day. Jason 00 (Same as: Tylenol) Acetaminoph No Notes: Erwin benjamin en 325 MG / 5-04 (Same as: l Hydrocodone 06:46: [place] Kristen nn Bitartrate 00 325/5) Do 5 MG Oral not exceed Tablet 4gm/day of acetaminop hen. Sodium No 1,000 mL, Memori a Chloride 5-04 Rate: 125 l 0.9% IV 06:46: ml/hr, Wilder 1,000 mL 00 Infuse over: 8 hr, [...] / 5-04 (Same as: l Hydrocodone 06:46: [place] Kristen nn Bitartrate 00 325/5) Do 5 MG Oral not exceed Tablet 4gm/day of acetaminop hen. Sodium No 1,000 mL, Memori a Chloride 5-04 Rate: 125 l 0.9% IV 06:46: ml/hr, Wilder 1,000 mL 00 Infuse over: 8 hr, Route: IV, Dosing Weight 127.27 kg, Total Volume: 1,000, Start date: 11/15/17 1:46:00 CDT, Duration: 30 day, Stop date: 12/15/17 1:45:00 CDT, 2.44, m2 Saline No Notes: Memoria Flush 0.9% 5-04 (Same as: l 06:46: BD Wilder 00 Posiflush) Acetaminoph No Notes: Do M emoria en 5-04 not exceed l 06:46: 4 gm/day. Jason 00 (Same as: Tylenol) Acetaminoph No Notes: Erwin benjamin en 325 MG / 5-04 (Same as: l Hydrocodone 06:46: [place] Kristen nn Bitartrate 00 325/5) Do 5 MG Oral not exceed Tablet 4gm/day of acetaminop hen. Sodium No 1,000 mL, Memori a Chloride 5-04 Rate: 125 l 0.9% IV 06:46: ml/hr, Wilder 1,000 mL 00 Infuse over: 8 hr, Route: IV, Dosing Weight 127.27 kg, Total Volume: 1,000, Start date: 11/15/17 1:46:00 CDT, Duration: 30 day, Stop date: 12/15/17 1:45:00 CDT, 2.44, m2 Saline No Notes: Memoria Flush 0.9% 5-04 (Same as: l 06:46: BD Wilder 00 Posiflush) Acetaminoph No Notes: Do M emoria en 5-04 not exceed l 06:46: 4 gm/day. Wilder 00 (Same as: Tylenol) Acetaminoph No Notes: Erwin benjamin en 325 MG / 5-04 (Same as: l Hydrocodone 06:46: [place] Kristen nn Bitartrate 00 325/5) Do 5 MG Oral not exceed Tablet 4gm/day of acetaminop hen. Sodium No 1,000 mL, Memori a Chloride -04 Rate: 125 l 0.9% IV 06:46: ml/hr, Wilder 1,000 mL 00 Infuse over: 8 hr, [...] / 5-04 (Same as: l Hydrocodone 06:46: [place] Kristen nn Bitartrate 00 325/5) Do 5 MG Oral not exceed Tablet 4gm/day of acetaminop hen. Reglan No Notes: Memoria 5-04 (Same as: l 04:27: Reglan) Wilder 00 Benadryl No Notes: Memoria 5-04 (Same as: l 04:27: Benadryl) Jason Reglan No Notes: Memoria 5-04 (Same as: l 04:27: Reglan) Wilder Benadryl No Notes: Memoria 5-04 (Same as: l 04:27: Benadryl) Jason Reglan No Notes: Memoria 5-04 (Same as: l 04:27: Reglan) Jason Benadryl No Notes: Memoria 5-04 (Same as: l 04:27: Benadryl) Wilder Reglan No Notes: Memoria 5-04 (Same as: l 04:27: Reglan) Jason Benadryl No Notes: Memoria 5-04 (Same as: l 04:27: Benadryl) Jason Reglan No Notes: Memoria 5-04 (Same as: l 04:27: Reglan) Wilder Benadryl No Notes: Memoria 5-04 (Same as: l 04:27: Benadryl) Jason Reglan No Notes: Memoria 5-04 (Same as: l 04:27: Reglan) Wilder Benadryl No Notes: Memoria 5-04 (Same as: l 04:27: Benadryl) Jason Magnesium No Notes: Memori a Sulfate 5-04 WASTE: F/P l 04:26: - Sink; E Wilder - Municipal Trash Bin Sodium No 1,000 mL, Memori a Chloride 5-04 1000 l 0.9% 04:26: ml/hr, Jason (Bolus) IV 00 Infuse Over: 1 hr, Route: IV, 1,000, Drug form: INJ, ONCE, Priority: STAT, Dosing Weight 127.273 kg, Start date: 11/14/17 23:26:00 CDT, Stop date: 11/14/17 23:26:00 CDT Magnesium No Notes: Memori a Sulfate 5-04 WASTE: F/P l 04:26: - Sink; E Wilder - Municipal Trash Bin Sodium No 1,000 mL, Memori a Chloride 5-04 1000 l 0.9% 04:26: ml/hr, Jason (Bolus) IV 00 Infuse Over: 1 hr, Route: IV, 1,000, Drug form: INJ, ONCE, Priority: STAT, Dosing Weight 127.273 kg, Start date: 11/14/17 23:26:00 CDT, Stop date: 11/14/17 23:26:00 CDT Magnesium No Notes: Memori a Sulfate 5-04 WASTE: F/P l 04:26: - Sink; E Wilder - Municipal Trash Bin Sodium No 1,000 mL, Memori a Chloride 5-04 1000 l 0.9% 04:26: ml/hr, Jason (Bolus) IV 00 Infuse Over: 1 hr, Route: IV, 1,000, Drug form: INJ, ONCE, Priority: STAT, Dosing Weight 127.273 kg, Start date: 11/14/17 23:26:00 CDT, Stop date: 11/14/17 23:26:00 CDT Magnesium 2018-0 No Notes: Memori a Sulfate 5-04 WASTE: F/P l 04:26: - Sink; E Wilder 00 - Municipal Trash Bin Sodium 2018-0 No 1,000 mL, Memori a Chloride 5-04 1000 l 0.9% 04:26: ml/hr, Wilder (Bolus) IV 00 Infuse Over: 1 hr, Route: IV, 1,000, Drug form: INJ, ONCE, Priority: STAT, Dosing Weight 127.273 kg, Start date: 11/14/17 23:26:00 CDT, Stop date: 11/14/17 23:26:00 CDT Magnesium 2018-0 No Notes: Memori a Sulfate 5-04 WASTE: F/P l 04:26: - Sink; E Jason 00 - Municipal Trash Bin Sodium 2018-0 No 1,000 mL, Memori a Chloride 5-04 [...] Jason 00 - Municipal Trash Bin Sodium 2018-0 No 1,000 mL, Memori a Chloride 5-04 1000 l 0.9% 04:26: ml/hr, Jason (Bolus) IV 00 Infuse Over: 1 hr, Route: IV, 1,000, Drug form: INJ, ONCE, Priority: STAT, Dosing Weight 127.273 kg, Start date: 11/14/17 23:26:00 CDT, Stop date: 11/14/17 23:26:00 CDT Zosyn 2018-0 No 4.5 gm, Memoria 5-04 Route: l 04:10: IVPB, Wilder 00 ONCE, Dosing Weight 127.273, kg, Priority: [...] moria 5-04 infuse l 04:10: over 2.5 Wilder 00 hours For adult patients only: Round [...] moria 5-04 infuse l 04:10: over 2.5 Wilder 00 hours For adult patients only: Round to nearest 250 mg per Medical Staff approval MEDICATION WASTE Product Size: 1000 mg Product Wasted: ___ mg Zosyn 2018-0 No 4.5 gm, Memoria 5-04 Route: l 04:10: IVPB, Wilder 00 ONCE, Dosing Weight 127.273, kg, Priority: STAT, Start date: 11/14/17 23:10:00 CDT, Stop date: 11/14/17 23:10:00 CDT, ABX Indication : Bacteremia Vancomycin 2018-0 No 2001 mg: Me moria 5-04 infuse l 04:10: over 2.5 Wilder 00 hours For adult patients only: Round to nearest 250 mg per Medical Staff approval MEDICATION WASTE Product Size: 1000 mg Product Wasted: ___ mg Zosyn 2018-0 No 4.5 gm, Memoria 5-04 Route: l 04:10: IVPB, Wilder 00 ONCE, Dosing Weight 127.273, kg, Priority: [...] mg Zosyn 2018-0 No 4.5 gm, Memoria 5 Route: l 04:10: IVPB, Jason 00 ONCE, Dosing Weight 127.273, kg, Priority: STAT, Start date: 11/14/17 23:10:00 CDT, Stop date: 11/14/17 23:10:00 CDT, ABX Indication : Bacteremia Vancomycin 2017-0 No 2000 mg: Me moria 5-04 infuse [...] en 5-04 acetaminop l 02:56: hen 4000 Wilder 00 mg/day (4 gm/day). (Same as: Tylenol Extra Strength) Acetaminoph No Notes: Max Memoria en 5-04 acetaminop l 02:56: hen 4000 Jason 00 mg/day (4 gm/day). (Same as: Tylenol Extra Strength) Acetaminoph No Notes: Max Memoria en 5-04 acetaminop l 02:56: hen 4000 Wilder 00 mg/day (4 gm/day). (Same as: Tylenol [...] Wasted: _0__ mg Rocephin No Notes: Memoria 5- (Same As: l 02:21: Rocephin). Jason 00 MEDICATION WASTE Product Size: 1000 mg Product Wasted: _0__ mg Rocephin No Notes: Memoria 5-04 (Same As: l 02:21: Rocephin). Jason 00 MEDICATION WASTE Product Size: 1000 mg Product Wasted: _0__ mg Rocephin No Notes: Memoria 5- (Same As: l 02:21: Rocephin). Jason 00 MEDICATION WASTE Product Size: 1000 mg Product Wasted: _0__ mg Rocephin 2018-0 No Notes: Memoria 5-04 (Same As: l 02:21: Rocephin). Wilder 00 MEDICATION WASTE Product Size: 1000 mg Product Wasted: _0__ mg Rocephin 2018-0 No Notes: Memoria 5-04 (Same As: l 02:21: Rocephin). Wilder 00 MEDICATION WASTE Product Size: 1000 mg Product Wasted: _0__ mg Morphine 2018-0 No 4 mg, Memoria 5-04 Route: l 00:05: IVP, ONCE, Wilder Dosing Weight 127.273, kg, Priority: STAT, Start date: 11/14/17 19:05:00 CDT, Stop date: 11/14/17 19:05:00 CDT Morphine 2018-0 No 4 mg, Memoria 5-04 Route: l 00:05: IVP, ONCE, Jason Dosing Weight 127.273, kg, Priority: STAT, Start date: 11/14/17 19:05:00 CDT, Stop date: 11/14/17 19:05:00 CDT Morphine 2018-0 No 4 mg, Memoria 5-04 Route: l 00:05: IVP, ONCE, Wilder Dosing Weight 127.273, kg, Priority: STAT, Start date: 11/14/17 19:05:00 CDT, Stop date: 11/14/17 19:05:00 CDT Morphine 2018-0 No 4 mg, Memoria 5-04 Route: l 00:05: IVP, ONCE, Wilder Dosing Weight 127.273, kg, Priority: STAT, Start date: 11/14/17 19:05:00 CDT, Stop date: 11/14/17 19:05:00 CDT Morphine 2018-0 No 4 mg, Memoria 5-04 Route: l 00:05: IVP, ONCE, Jason 00 Dosing Weight 127.273, kg, Priority: STAT, Start date: 11/14/17 19:05:00 CDT, Stop date: 11/14/17 19:05:00 CDT Morphine 2018-0 No 4 mg, Memoria 5-04 Route: l 00:05: IVP, ONCE, Jason 00 Dosing Weight 127.273, kg, Priority: STAT, Start date: 11/14/17 19:05:00 CDT, Stop date: 11/14/17 19:05:00 CDT Benadryl No Notes: Memoria 5-03 (Same as: l 23:14: Benadryl) Wilder Benadryl No Notes: Memoria 5-03 (Same as: l 23:14: Benadryl) Jason Benadryl No Notes: Memoria 5-03 (Same as: l 23:14: Benadryl) Jason Benadryl No Notes: Memoria 5-03 (Same as: l 23:14: Benadryl) Jason 00 Benadryl No Notes: Memoria 5-03 (Same as: l 23:14: Benadryl) Jason Benadryl No Notes: Memoria 5-03 (Same as: l 23:14: Benadryl) Jason 00 Benadryl No Notes: Memoria 5-03 (Same as: l 22:56: Benadryl) Jason 00 Morphine 2017-0 No 4 mg, 1 [...] HCL/ACETAMI 2-20 mouth. ity of NOPHEN 10:03: [place] ([facility] ORAL) Branch OXYCODONE 2016- Yes Take by Unive rs HCL/ACETAMI 2-20 mouth. ity of NOPHEN 04:03: [place] ([facility] ORAL) Branch OXYCODONE 2016-07 Yes Take by Unive rs HCL/ACETAMI 2-20 mouth. ity of NOPHEN 04:03: [place] ([facility] Medical ORAL) Branch OXYCODONE 2016-07 Yes Take by Unive rs HCL/ACETAMI 2-20 mouth. ity of NOPHEN 04:03: [place] ([facility] Medical ORAL) Branch OXYCODONE 2016-07 Yes Take by Unive rs HCL/ACETAMI 2-20 mouth. ity of NOPHEN 04:03: [place] ([facility] ORAL) Branch dicyclomine 2016- [...] 1 Uni vers e 25 mg 2-20 -25 tablet by ity of tablet 00:00: [...] (N/V) for up to 12 doses. proMETHazin 2017- Yes 25mg Take 1 Univ ers e [...] Vomiting (N/V) for up to 12 doses. Pantoprazol Pantoprazol No 1{table QD Pantoprazo e [...] Codeine #4 Codeine #4 - C HI [facility] Macrobid Macrobid Yes Na Gamble 1 capsule Common with food [facility] Pantoprazol Pantoprazol Yes Na Gamble 1 tablet Common e Sodium e Sodium [facility] Collagenase Collagenase Yes Na Gamble 1 Common applicatio Spirit n to - [facility] Pantoprazol Pantoprazol No 1{table QD Pantoprazo [...] cation_ e 250 to_affe UNIT/GM cted_ar ea} Immunizations Ordered Filled Immunization Date Status Comments [facility] e Immunization Name Name SARS-COV-2 COVID-19 2021-01-01 Completed Unive rsity of [facility], [id number], 00:00:00 [facility] 0.25ML VACCINE Branch SARS-COV-2 COVID-19 2021-01-01 Completed [...] Time Observation Value Comments Source Systolic blood 2022-11-09 23:00:00 108 mm[Hg] Univer sity of pressure [place] [facility] Diastolic blood 2022-11-09 23:00:00 64 mm[Hg] Unive rsity of pressure [facility] Branch Heart rate 2022-11-09 23:00:00 106 /min Universi ty of [facility] Respiratory rate 2022-11-09 23:00:00 16 /min Univ ersity of [facility] Oxygen saturation 2022-11-09 23:00:00 96 /min Uni versity of in Arterial blood [place] [facility] by Pulse oximetry Branch Body temperature 2022-11-09 19:25:00 36.78 Abi Univ ersity of [facility] Body height 2022-11-09 19:25:00 149.9 cm Universi ty of [facility] Body weight 2022-11-09 19:25:00 127.007 kg Universi ty of [facility] BMI 2022-11-09 19:25:00 56.55 kg/m2 Universi ty of [facility] Systolic blood 2022-10-31 23:00:00 119 mm[Hg] Univer sity of pressure [facility] Diastolic blood 2022-10-31 23:00:00 92 mm[Hg] Unive rsity of pressure [facility] Heart rate 2022-10-31 23:00:00 94 /min [facility] [place] [facility] Respiratory rate 2022-10-31 23:00:00 12 /min Univ ersity of [facility] Oxygen saturation 2022-10-31 23:00:00 99 /min Uni versity of in Arterial blood [place] [facility] by Pulse oximetry Branch Body temperature 2022-10-31 19:36:00 37 Abi Univ ersity of [facility] Body height 2022-10-31 19:36:00 162.6 cm [facility] [place] [facility] Body weight 2022-10-31 19:36:00 117.935 kg [facility] [place] [facility] BMI 2022-10-31 19:36:00 44.63 kg/m2 Universi ty of [facility] Systolic blood 2022-10-31 18:21:00 114 mm[Hg] Univer sity of pressure [facility] Diastolic blood 2022-10-31 18:21:00 78 mm[Hg] Unive rsity of pressure [place] [facility] Heart rate 2022-10-31 18:21:00 103 /min [facility] [place] [facility] Body weight 2022-10-31 18:21:00 117.935 kg per patient [facility] [place] [facility] BMI 2022-10-31 18:21:00 44.63 kg/m2 [facility] [place] [facility] Systolic blood 2022-10-22 02:00:00 148 mm[Hg] Univer sity of pressure [place] [facility] Diastolic blood 2022-10-22 02:00:00 87 mm[Hg] Unive rsity of pressure [place] [facility] Heart rate 2022-10-22 02:00:00 92 /min [facility] [place] [facility] Respiratory rate 2022-10-22 02:00:00 18 /min Univ ers[facility] of [place] [facility] Oxygen saturation 2022-10-22 02:00:00 99 /min Uni versity of in Arterial blood [place] [facility] by Pulse oximetry Branch Body temperature 2022-10-21 22:01:00 36.72 Abi Univ ers[facility] of [place] [facility] Body weight 2022-10-21 22:01:00 118.389 kg [facility] [place] [facility] BMI 2022-10-21 22:01:00 44.80 kg/m2 [facility] [place] [facility] Systolic blood 2022-10-06 01:01:00 140 mm[Hg] Univer sity of pressure [place] [facility] Diastolic blood 2022-10-06 01:01:00 86 mm[Hg] Unive rsity of pressure [place] [facility] Heart rate 2022-10-06 01:01:00 103 /min [facility] [place] [facility] Respiratory rate 2022-10-06 01:01:00 19 /min [facility] [place] [facility] Oxygen saturation 2022-10-06 01:01:00 98 /min Uni versity of in Arterial blood [place] [facility] by Pulse oximetry Branch Body temperature 2022-10-05 20:37:00 36.78 Abi Univ ers[facility] of [place] [facility] Body height 2022-10-05 20:37:00 162.6 cm [facility] [place] [facility] Body weight 2022-10-05 20:37:00 118.389 kg [facility] [place] [facility] BMI 2022-10-05 20:37:00 44.80 kg/m2 [facility] [place] [facility] Systolic blood 2022-09-06 18:18:00 98 mm[Hg] Univer sity of pressure [place] [facility] Diastolic blood 2022-09-06 18:18:00 52 mm[Hg] Unive rsity of pressure [place] [facility] Heart rate 2022-09-06 18:18:00 93 /min [facility] [place] [facility] Body temperature 2022-09-06 18:18:00 36.72 Abi Univ [facility] [place] [facility] Respiratory rate 2022-09-06 18:18:00 16 /min Univ [facility] [place] [facility] Oxygen saturation 2022-09-06 18:18:00 93 /min Uni versity of in Arterial blood [place] [facility] by Pulse oximetry Branch Body height 2022-09-04 09:34:00 149.9 cm [facility] [place] [facility] Body weight 2022-09-04 09:34:00 118.389 kg [facility] [place] [facility] BMI 2022-09-04 09:34:00 52.72 kg/m2 [facility] [place] [facility] Systolic blood 2022-09-05 21:30:00 129 mm[Hg] Univer sity of pressure [place] [facility] Diastolic blood 2022-09-05 21:30:00 73 mm[Hg] Unive rsity of pressure [place] [facility] Heart rate 2022-09-05 21:30:00 96 /min [facility] [place] [facility] Respiratory rate 2022-09-05 21:30:00 14 /min Univ ers[facility] [place] [facility] Oxygen saturation 2022-09-05 21:30:00 95 /min Uni versity of in Arterial blood [place] [facility] by Pulse oximetry Branch Body temperature 2022-09-05 20:53:00 36.56 Abi Univ [facility] of [place] [facility] Body height 2022-09-04 09:34:00 149.9 cm [facility] [place] [facility] Body weight 2022-09-04 09:34:00 118.389 kg [facility] [place] [facility] BMI 2022-09-04 09:34:00 52.72 kg/m2 [facility] [place] [facility] Systolic blood 2022-08-27 22:09:00 139 mm[Hg] Univer sity of pressure [place] [facility] Diastolic blood 2022-08-27 22:09:00 104 mm[Hg] Unive rsity of pressure [place] [facility] Heart rate 2022-08-27 22:09:00 93 /min [facility] [place] [facility] Respiratory rate 2022-08-27 22:09:00 18 /min Univ ers[facility] [place] [facility] Oxygen saturation 2022-08-27 22:09:00 96 /min Uni versity of in Arterial blood [place] [facility] by Pulse oximetry Branch Body temperature 2022-08-27 19:53:00 36.67 Abi Univ ers[facility] of [place] [facility] Systolic blood 2022-08-25 03:00:00 132 mm[Hg] Univer sity of pressure [place] [facility] Diastolic blood 2022-08-25 03:00:00 89 mm[Hg] Unive rsity of pressure [place] [facility] Heart rate 2022-08-25 03:00:00 91 /min [facility] [place] [facility] Respiratory rate 2022-08-25 03:00:00 18 /min Univ [facility] [place] [facility] Oxygen saturation 2022-08-25 03:00:00 96 /min Uni versity of in Arterial blood [place] [facility] by Pulse oximetry Branch Body temperature 2022-08-24 22:12:00 37.06 Abi Univ [facility] [place] [facility] Body weight 2022-08-24 22:12:00 131.543 kg [facility] [place] [facility] BMI 2022-08-24 22:12:00 58.57 kg/m2 [facility] [place] [facility] Systolic blood 2022-08-24 00:30:00 115 mm[Hg] Univer sity of pressure [place] [facility] Diastolic blood 2022-08-24 00:30:00 78 mm[Hg] Unive rsity of pressure [place] [facility] Heart rate 2022-08-24 00:30:00 96 /min [facility] [place] [facility] Respiratory rate 2022-08-24 00:30:00 18 /min [facility] [place] [facility] Oxygen saturation 2022-08-24 00:30:00 95 /min Uni versity of in Arterial blood [place] [facility] by Pulse oximetry Branch Body temperature 2022-08-23 21:14:00 35.89 Abi [facility] [place] [facility] Body height 2022-08-23 21:14:00 149.9 cm [facility] [place] [facility] Body weight 2022-08-23 21:14:00 127.461 kg [facility] [place] [facility] BMI 2022-08-23 21:14:00 56.76 kg/m2 [facility] [place] [facility] Systolic blood 2022-08-17 01:13:00 119 mm[Hg] Univer sity of pressure [place] [facility] Diastolic blood 2022-08-17 01:13:00 85 mm[Hg] Unive rsity of pressure [place] [facility] Heart rate 2022-08-17 01:13:00 97 /min [facility] [place] [facility] Body temperature 2022-08-17 01:13:00 36.17 Abi [facility] [place] [facility] Respiratory rate 2022-08-17 01:13:00 16 /min [facility] [place] [facility] Oxygen saturation 2022-08-17 01:13:00 94 /min Uni versity of in Arterial blood [place] [facility] by Pulse oximetry Branch Body weight 2022-08-16 09:31:00 126.962 kg [facility] [place] [facility] BMI 2022-08-16 09:31:00 56.53 kg/m2 [facility] [place] [facility] Systolic blood 2022-07-05 18:59:00 125 mm[Hg] Univer sity of pressure [place] [facility] Diastolic blood 2022-07-05 18:59:00 84 mm[Hg] Unive rsity of pressure [place] [facility] Heart rate 2022-07-05 18:59:00 104 /min [facility] [place] [facility] Respiratory rate 2022-07-05 18:59:00 18 /min [facility] [place] [facility] Body weight 2022-07-05 18:59:00 127.007 kg [facility] [place] [facility] BMI 2022-07-05 18:59:00 56.55 kg/m2 [facility] [place] [facility] Oxygen saturation 2022-07-05 18:59:00 98 /min Uni versity of in Arterial blood [place] [facility] by Pulse oximetry Branch Systolic blood 2022-06-25 19:02:00 142 mm[Hg] Univer sity of pressure [place] [facility] Diastolic blood 2022-06-25 19:02:00 99 mm[Hg] Unive [facility]ity of pressure [place] [facility] [facility] Heart rate 2022-06-25 19:01:00 91 /min [facility] Systolic blood 2022-05-21 18:00:00 136 mm[Hg] [facility] Diastolic blood 2022-05-21 18:00:00 92 mm[Hg] [facility] Heart rate 2022-05-21 18:00:00 99 /min [facility] Body temperature 2022-05-21 18:00:00 35.83 Abi [facility] Respiratory rate 2022-05-21 18:00:00 18 /min [facility] Oxygen saturation 2022-05-21 18:00:00 95 /min [facility] [place] [facility] Pulse oximetry [facility] Body weight 2022-05-21 10:45:00 135.988 kg [facility] BMI 2022-05-21 10:45:00 60.55 kg/m2 [facility] Body height 2022-05-21 02:02:00 149.9 cm [facility] Systolic blood 2022-05-15 01:11:00 166 mm[Hg] [facility] Diastolic blood 2022-05-15 01:11:00 93 mm[Hg] [facility] Heart rate 2022-05-15 01:09:00 106 /min [facility] Body temperature 2022-05-15 01:09:00 36.89 Abi [facility] Respiratory rate 2022-05-15 01:09:00 20 /min [facility] Body weight 2022-05-15 01:09:00 127.007 kg [facility] BMI 2022-05-15 01:09:00 56.55 kg/m2 [facility] Oxygen saturation 2022-05-15 01:09:00 96 /min [facility] in [facility] [place] [facility] Pulse oximetry [facility] Systolic blood 2022-05-13 03:00:00 138 mm[Hg] [facility] Diastolic blood 2022-05-13 03:00:00 82 mm[Hg] [facility] Heart rate 2022-05-13 03:00:00 102 /min [facility] Respiratory rate 2022-05-13 03:00:00 20 /min [facility] Oxygen saturation 2022-05-13 03:00:00 97 /min [facility] in Ar[facility]ial blood [place] [facility] by Pulse oximetry [facility] Body temperature 2022-05-13 00:13:00 36.5 Abi [facility] Body weight 2022-05-13 00:13:00 132.904 kg [facility] BMI 2022-05-13 00:13:00 59.18 kg/m2 [facility] Systolic blood 2022-05-06 12:42:00 128 mm[Hg] [facility] Diastolic blood 2022-05-06 12:42:00 83 mm[Hg] [facility] Heart rate 2022-05-06 12:42:00 111 /min [facility] Body temperature 2022-05-06 12:42:00 35.94 Abi [facility] Respiratory rate 2022-05-06 12:42:00 18 /min [facility] Oxygen saturation 2022-05-06 12:42:00 95 /min [facility] in Arterial blood [place] [facility] by Pulse oximetry [facility] Body weight 2022-05-06 10:22:00 132.995 kg [facility] BMI 2022-05-06 10:22:00 59.22 kg/m2 [facility] Body height 2022-05-04 11:00:00 149.9 cm [facility] Systolic blood 2022-02-23 17:14:00 130 mm[Hg] [facility] Diastolic blood 2022-02-23 17:14:00 83 mm[Hg] [facility] Heart rate 2022-02-23 17:14:00 100 /min [facility] Body temperature 2022-02-23 17:14:00 36.72 Abi [facility] Respiratory rate 2022-02-23 17:14:00 20 /min [facility] Oxygen saturation 2022-02-23 17:14:00 96 /min [facility] in [facility] blood [place] [facility] Pulse oximetry [facility] Body height 2022-02-15 10:00:00 149.9 cm [facility] Body weight 2022-02-15 10:00:00 123 kg [facility] BMI 2022-02-15 10:00:00 54.77 kg/m2 [facility] Systolic blood 2022-02-20 12:40:00 107 mm[Hg] [facility] Diastolic blood 2022-02-20 12:40:00 64 mm[Hg] [facility] rsity of [facility] Heart rate 2022-02-20 12:40:00 99 /min [facility] Body temperature 2022-02-20 12:40:00 36.83 Abi [facility] Respiratory rate 2022-02-20 12:40:00 18 /min [facility] Oxygen saturation 2022-02-20 12:40:00 95 /min [facility] in [facility]ial blood [place] [facility] Pulse oximetry [facility] Body height 2022-02-15 10:00:00 149.9 cm [facility] Body weight 2022-02-15 10:00:00 123 kg [facility] BMI 2022-02-15 10:00:00 54.77 kg/m2 [facility] Heart rate 2022-02-10 23:00:00 91 /min [facility] Oxygen saturation 2022-02-10 23:00:00 95 /min [facility] in [facility]ial blood [place] [facility] Pulse oximetry [facility] Systolic blood 2022-02-10 22:02:00 134 mm[Hg] [facility] Diastolic blood 2022-02-10 22:02:00 83 mm[Hg] [facility] Body temperature 2022-02-10 21:00:00 36.83 Abi [facility] Respiratory rate 2022-02-10 21:00:00 28 /min [facility] Body weight 2022-02-10 09:00:00 134.99 kg [facility] BMI 2022-02-10 09:00:00 60.08 kg/m2 [facility] Body height 2022-02-07 22:22:00 149.9 cm [facility] Systolic blood 2022-01-27 03:38:00 126 mm[Hg] [facility] Diastolic blood 2022-01-27 03:38:00 90 mm[Hg] [facility] Heart rate 2022-01-27 03:38:00 97 /min [facility] Respiratory rate 2022-01-27 03:38:00 18 /min [facility] Oxygen saturation 2022-01-27 03:38:00 97 /min [facility] in Ar[facility]ial blood [place] [facility] Pulse oximetry [facility] Body temperature 2022-01-26 22:09:00 36.94 Abi [facility] Body height 2022-01-26 22:09:00 149.9 cm [facility] Body weight 2022-01-26 22:09:00 127.007 kg [facility] BMI 2022-01-26 22:09:00 56.55 kg/m2 [facility] Systolic blood 2022-01-17 11:00:00 143 mm[Hg] [facility] Diastolic blood 2022-01-17 11:00:00 91 mm[Hg] [facility] Heart rate 2022-01-17 11:00:00 100 /min [facility] Respiratory rate 2022-01-17 11:00:00 16 /min [facility] Oxygen saturation 2022-01-17 11:00:00 96 /min [facility] in [facility]ial blood [place] [facility] Pulse oximetry [facility] Body temperature 2022-01-17 09:55:00 36.89 Abi [facility] Body height 2022-01-17 09:55:00 149.9 cm [facility] Body weight 2022-01-17 09:55:00 127.007 kg [facility] BMI 2022-01-17 09:55:00 56.55 kg/m2 [facility] Systolic blood 2022-01-13 00:43:00 132 mm[Hg] [facility] Diastolic blood 2022-01-13 00:43:00 88 mm[Hg] Unive rsity of [facility] Heart rate 2022-01-13 00:43:00 107 /min [facility] Body temperature 2022-01-13 00:43:00 36.33 Abi [facility] Respiratory rate 2022-01-13 00:43:00 18 /min [facility] Oxygen saturation 2022-01-13 00:43:00 95 /min [facility] [place] [facility] by Pulse oximetry Branch Body height 2022-01-10 11:31:00 149.9 cm [facility] Body weight 2022-01-10 11:31:00 127.007 kg [facility] BMI 2022-01-10 11:31:00 56.55 kg/m2 [facility] Body temperature 2022-01-06 16:10:00 36.22 Abi [facility] Respiratory rate 2022-01-06 16:10:00 16 /min [facility] Oxygen saturation 2022-01-06 16:10:00 96 /min [facility] in [facility]ial blood [place] [facility] Pulse oximetry [facility] Systolic blood 2022-01-06 16:10:00 127 mm[Hg] Univer sity of [facility] Diastolic blood 2022-01-06 16:10:00 84 mm[Hg] Unive rsity of [facility] Heart rate 2022-01-06 16:10:00 98 /min [facility] Body weight 2022-01-06 08:54:00 133.494 kg [facility] BMI 2022-01-06 08:54:00 50.52 kg/m2 [facility] Body height 2022-01-05 03:01:00 162.6 cm [facility] Systolic blood 2021-12-22 17:03:00 132 mm[Hg] [facility] Diastolic blood 2021-12-22 17:03:00 90 mm[Hg] [facility] Heart rate 2021-12-22 17:03:00 78 /min [facility] Body temperature 2021-12-22 17:03:00 35.83 Abi [facility] Respiratory rate 2021-12-22 17:03:00 14 /min [facility] Oxygen saturation 2021-12-22 17:03:00 93 /min [facility] in [facility]ial blood [place] [facility] Pulse oximetry [facility] Body weight 2021-12-22 09:00:00 140.933 kg [facility] BMI 2021-12-22 09:00:00 62.75 kg/m2 [facility] Body height 2021-12-21 12:47:00 149.9 cm [facility] Systolic blood 2021-12-18 20:40:00 125 mm[Hg] [facility] Diastolic blood 2021-12-18 20:40:00 75 mm[Hg] [facility] Heart rate 2021-12-18 20:40:00 99 /min [facility] Body temperature 2021-12-18 20:40:00 36.67 Abi [facility] Respiratory rate 2021-12-18 20:40:00 20 /min [facility] Oxygen saturation 2021-12-18 20:40:00 93 /min [facility] in Ar[facility]ial blood [place] [facility] by Pulse oximetry [facility] Body weight 2021-12-16 22:13:00 137.485 kg [facility] BMI 2021-12-16 22:13:00 61.22 kg/m2 [facility] Body height 2021-12-15 09:10:00 149.9 cm [facility] Systolic blood 2021-11-28 15:49:00 111 mm[Hg] [facility] Diastolic blood 2021-11-28 15:49:00 76 mm[Hg] [facility] Heart rate 2021-11-28 15:49:00 109 /min [facility] Body temperature 2021-11-28 15:49:00 36.06 Abi [facility] Respiratory rate 2021-11-28 15:49:00 18 /min [facility] Oxygen saturation 2021-11-28 15:49:00 92 /min [facility] in Arterial blood [place] [facility] by Pulse oximetry [facility] Body weight 2021-11-27 10:47:00 139.481 kg [facility] BMI 2021-11-27 10:47:00 62.11 kg/m2 [facility] Body height 2021-11-22 06:57:00 149.9 cm [facility] Systolic blood 2021-10-16 06:00:00 144 mm[Hg] [facility] Diastolic blood 2021-10-16 06:00:00 93 mm[Hg] [facility] Heart rate 2021-10-16 06:00:00 92 /min [facility] Respiratory rate 2021-10-16 06:00:00 22 /min [facility] Oxygen saturation 2021-10-16 04:00:00 94 /min [facility] in Arterial blood [place] [facility] by Pulse oximetry [facility] Body temperature 2021-10-16 03:45:00 37.06 Abi [facility] Body height 2021-10-16 03:45:00 149.9 cm [facility] Body weight 2021-10-16 03:45:00 127.461 kg [facility] BMI 2021-10-16 03:45:00 56.76 kg/m2 [facility] Systolic blood 2021-09-29 03:18:00 113 mm[Hg] [facility] Diastolic blood 2021-09-29 03:18:00 85 mm[Hg] [facility] Heart rate 2021-09-29 03:18:00 96 /min [facility] Respiratory rate 2021-09-29 03:18:00 18 /min [facility] Oxygen saturation 2021-09-29 03:18:00 93 /min [facility] in Ar[facility]ial blood [place] [facility] by Pulse oximetry [facility] Body temperature 2021-09-29 01:01:16 36.89 Abi [facility] Body weight 2021-09-28 23:13:00 127.461 kg [facility] BMI 2021-09-28 23:13:00 56.76 kg/m2 [facility] Systolic blood 2021-08-08 21:53:00 142 mm[Hg] [facility] Diastolic blood 2021-08-08 21:53:00 88 mm[Hg] Unive rsity of [facility] Heart rate 2021-08-08 21:53:00 96 /min [facility] Body temperature 2021-08-08 21:53:00 36.06 Abi [facility] Respiratory rate 2021-08-08 21:53:00 18 /min [facility] Oxygen saturation 2021-08-08 21:53:00 96 /min [facility] in Ar[facility]ial blood [place] [facility] by Pulse oximetry [facility] Body weight 2021-08-08 09:48:00 138.801 kg [facility] BMI 2021-08-08 09:48:00 61.80 kg/m2 [facility] Body height 2021-08-03 10:27:00 149.9 cm [facility] Systolic blood 2021-08-01 03:50:00 142 mm[Hg] [facility] Diastolic blood 2021-08-01 03:50:00 95 mm[Hg] [facility] Heart rate 2021-08-01 03:50:00 93 /min [facility] Respiratory rate 2021-08-01 03:50:00 17 /min [facility] Oxygen saturation 2021-08-01 03:50:00 98 /min [facility] in Arterial blood [place] [facility] by Pulse oximetry [facility] Body temperature 2021-07-31 20:39:00 36.5 Abi [facility] Body weight 2021-07-31 20:39:00 136.079 kg [facility] BMI 2021-07-31 20:39:00 60.59 kg/m2 [facility] Systolic blood 2021-07-30 01:46:00 134 mm[Hg] Univer sity of pressure [facility] Diastolic blood 2021-07-30 01:46:00 100 mm[Hg] Unive rsity of [facility] Heart rate 2021-07-30 01:46:00 102 /min [facility] Respiratory rate 2021-07-30 01:46:00 22 /min [facility] 2021-07-30 01:46:00 96 /min Uni versity of in Arterial blood [facility] by Pulse oximetry [place] Body temperature 2021-07-29 20:52:00 36.67 [facility]i [facility] weight 2021-07-29 20:52:00 136.079 kg [facility] BMI 2021-07-29 20:52:00 60.59 kg/m2 [facility] height 2021-07-04 11:20:00 59 [in_i] [facility] weight 2021-07-04 11:20:00 350 [lb_av] [facility] temperature 2021-07-04 11:20:00 97.8 [degF] [facility] bmi 2021-07-04 11:20:00 70.68 kg/m2 [facility] oximetry 2021-07-04 11:20:00 94 % [facility] blood pressure 2021-07-04 11:20:00 160 mm[Hg] [facility] blood pressure 2021-07-04 11:20:00 80 mm[Hg] [facility] diastolic [facility] Systolic blood 2021-06-07 23:30:00 175 mm[Hg] Univer sity of [facility] Diastolic blood 2021-06-07 23:30:00 107 mm[Hg] Unive rsity of [facility] Heart rate 2021-06-07 23:30:00 81 /min [facility] Respiratory rate 2021-06-07 23:30:00 21 /min [facility] O[facility] saturation 2021-06-07 23:30:00 97 /min Uni versity of in Arterial blood [facility] by Pulse oximetry Branch Body weight 2021-06-07 21:55:00 136.079 kg [facility] BMI 2021-06-07 21:55:00 60.59 kg/m2 [facility] Body temperature 2021-06-07 21:55:00 37.44 Abi [facility] height 2021-04-11 13:00:00 59 [in_i] [facility] weight 2021-04-11 13:00:00 350 [lb_av] [facility] temperature 2021-04-11 13:00:00 96.8 [degF] [facility] bmi 2021-04-11 13:00:00 70.68 kg/m2 [facility] oximetry 2021-04-11 13:00:00 96 % [facility] blood pressure 2021-04-11 13:00:00 120 mm[Hg] [facility] blood pressure 2021-04-11 13:00:00 77 mm[Hg] [facility] diastolic [facility] height 2021-01-31 14:20:00 59 [in_i] [facility] weight 2021-01-31 14:20:00 350 [lb_av] [facility] temperature 2021-01-31 14:20:00 95 [degF] [facility] bmi 2021-01-31 14:20:00 70.68 kg/m2 [facility] oximetry 2021-01-31 14:20:00 98 % [facility] blood pressure 2021-01-31 14:20:00 128 mm[Hg] [facility] - systolic [facility] blood pressure 2021-01-31 14:20:00 82 mm[Hg] [facility] - diastolic [facility] height 2021-01-03 13:40:00 59 [in_i] [facility] weight 2021-01-03 13:40:00 350 [lb_av] [facility] temperature 2021-01-03 13:40:00 97.4 [degF] [facility] bmi 2021-01-03 13:40:00 70.68 kg/m2 [facility] oximetry 2021-01-03 13:40:00 91 % [facility] blood pressure 2021-01-03 13:40:00 132 mm[Hg] Common [facility] - systolic [facility] blood pressure 2021-01-03 13:40:00 87 mm[Hg] [facility] - diastolic [facility] Systolic blood 2020-11-21 01:30:00 163 mm[Hg] Univer sity of pressure [facility] Diastolic blood 2020-11-21 01:30:00 106 mm[Hg] Unive rsity of [facility] Heart rate 2020-11-21 01:30:00 97 /min [facility] Respiratory rate 2020-11-21 01:30:00 21 /min Univ ersity [facility] Oxygen saturation 2020-11-21 01:30:00 97 /min Uni versity of in Arterial blood [facility] by Pulse oximetry [place] Body temperature 2020-11-20 23:27:00 36.83 [facility]i [facility] height 2020-11-20 23:27:00 149.9 cm [facility] Body weight 2020-11-20 23:27:00 136.079 kg [facility] BMI 2020-11-20 23:27:00 60.59 kg/m2 [facility] Systolic blood 2020-11-21 01:30:00 163 mm[Hg] [facility] Diastolic blood 2020-11-21 01:30:00 106 mm[Hg] [facility]ity [facility] Heart rate 2020-11-21 01:30:00 97 /min [facility] Respiratory rate 2020-11-21 01:30:00 21 /min [facility] Oxygen saturation 2020-11-21 01:30:00 97 /min Uni versity of in Arterial blood [facility] by Pulse oximetry Branch Body temperature 2020-11-20 23:27:00 36.83 Abi [facility] Body height 2020-11-20 23:27:00 149.9 cm [facility] [place] [facility] [place] Body weight 2020-11-20 23:27:00 136.079 kg [facility] BMI 2020-11-20 23:27:00 60.59 kg/m2 [facility] Systolic blood 2022-02-19 16:49:00 127 mm[Hg] [facility] Diastolic blood 2022-02-19 16:49:00 86 mm[Hg] [facility] Heart rate 2022-02-19 16:49:00 101 /min [facility] [place] Body temperature 2022-02-19 16:49:00 36.83 Abi [facility] Respiratory rate 2022-02-19 16:49:00 20 /min [facility] Oxygen saturation 2022-02-19 16:49:00 95 /min Uni versity of in Arterial blood [facility] by Pulse oximetry Branch Body height 2022-02-15 10:00:00 149.9 cm [facility] Body weight 2022-02-15 10:00:00 123 kg [facility] BMI 2022-02-15 10:00:00 54.77 kg/m2 [facility] Temperature Oral 2021-10-25 21:12:00 98.0 F Erwin Gomez (F) Heart Rate 2021-10-25 21:12:00 Love Gomez Respitory Rate 2021-10-25 21:12:00 Gerri Malcolm Systolic (mm Hg) 2021-10-25 21:12:00 Erwin rial [facility] Diastolic (mm Hg) 2021-10-25 21:12:00 Mem orial [facility] Heart Rate 2021-10-25 17:09:26 [facility] Respitory Rate 2021-10-25 17:09:26 Memori al [facility] Temperature Oral 2021-10-25 17:09:08 98.2 F Erwin rial Jason (F) Systolic (mm Hg) 2021-10-25 17:08:50 Erwin rial Jason Diastolic (mm Hg) 2021-10-25 17:08:50 Mem [facility] Heart Rate 2021-10-25 17:08:50 [facility] Respitory Rate 2021-10-25 13:07:22 [facility] Temperature Oral 2021-10-25 13:07:04 97.7 F Erwin rial Jason (F) Systolic (mm Hg) 2021-10-25 13:06:57 Erwin rial Jason Diastolic (mm Hg) 2021-10-25 13:06:57 Mem [facility] Heart Rate 2021-10-23 10:00:21 [facility] Respitory Rate 2021-10-23 10:00:21 [facility] Temperature Oral 2021-10-23 09:59:28 97.5 F Erwin rial Jason (F) Systolic (mm Hg) 2021-10-23 09:58:18 Erwin rial Jason Diastolic (mm Hg) 2021-10-23 09:58:18 Mem [facility] Heart Rate 2021-10-23 09:58:18 [facility] Heart Rate 2021-10-23 04:58:41 [facility] Respitory Rate 2021-10-23 04:58:41 [facility] Temperature Oral 2021-10-23 04:58:34 97.2 F Erwin rial Jason (F) Systolic (mm Hg) 2021-10-23 04:57:48 Erwin rial Jason Diastolic (mm Hg) 2021-10-23 04:57:48 Mem o[facility] Respitory Rate 2021-10-23 00:54:28 Memori al [facility] Systolic (mm Hg) 2021-10-23 00:54:19 Erwin rial [facility] Diastolic (mm Hg) 2021-10-23 00:54:19 Mem [facility] Temperature Oral 2021-10-23 00:53:24 98.1 F Erwin rial Jason (F) Height 2021-10-20 23:39:00 149.86 cm [facility] Weight 2021-10-20 23:39:00 [facility] BMI Calculated 2021-10-20 23:39:00 Memori al [facility] Systolic (mm Hg) 2021-10-10 14:00:00 Erwin rial Jason Diastolic (mm Hg) 2021-10-10 14:00:00 Mem orial [facility] Respitory Rate 2021-10-10 14:00:00 Memori al [facility] Respitory Rate 2021-10-10 13:00:00 Memori al [facility] Systolic (mm Hg) 2021-10-10 13:00:00 Erwin rial [facility] Diastolic (mm Hg) 2021-10-10 13:00:00 Mem orial [facility] Respitory Rate 2021-10-10 12:00:00 Memori al [facility] Systolic (mm Hg) 2021-10-10 12:00:00 Erwin rial Jason Diastolic (mm Hg) 2021-10-10 12:00:00 Mem [facility] Respitory Rate 2021-10-09 05:00:00 Memori [facility] Systolic (mm Hg) 2021-10-09 05:00:00 Erwin rial [facility] Diastolic (mm Hg) 2021-10-09 05:00:00 Mem [facility] Respitory Rate 2021-10-09 04:00:00 Memori al [facility] Systolic (mm Hg) 2021-10-09 04:00:00 Erwin rial [facility] Diastolic (mm Hg) 2021-10-09 04:00:00 Mem orial [facility] Respitory Rate 2021-10-09 03:00:00 Memori al [facility] Systolic (mm Hg) 2021-10-09 03:00:00 Erwin rial Jason Diastolic (mm Hg) 2021-10-09 03:00:00 Mem orial [facility] Heart Rate 2021-10-06 15:55:41 [facility] Temperature Oral 2021-10-06 15:55:32 98.3 F Erwin rial Wilder (F) Heart Rate 2021-10-06 15:54:37 [facility] Heart Rate 2021-10-06 12:20:12 [facility] Temperature Oral 2021-10-06 12:19:51 97.7 F Erwin rial [facility] (F) Temperature Oral 2021-10-06 09:20:54 97.9 F Erwin rial Jason (F) Height 2021-10-06 06:18:00 149.86 cm [facility] Weight 2021-10-06 06:18:00 [facility] BMI Calculated 2021-10-06 06:18:00 Memori al Wilder Respitory Rate 2018-05-22 17:30:00 Memori al Wilder Systolic (mm Hg) 2018-05-22 17:30:00 Erwin rial Wilder Diastolic (mm Hg) 2018-05-22 17:30:00 Mem orial Jason Temperature Oral 2018-05-22 17:30:00 98.4 F Erwin rial Jason (F) Temperature Oral 2018-05-22 16:23:00 98.6 F Erwin rial Wilder (F) Systolic (mm Hg) 2018-05-22 16:23:00 Erwin rial Wilder Diastolic (mm Hg) 2018-05-22 16:23:00 Mem orial Jason Respitory Rate 2018-05-22 14:00:00 Memori al Jason Systolic (mm Hg) 2018-05-22 14:00:00 Erwin rial Wilder Diastolic (mm Hg) 2018-05-22 14:00:00 Mem orial Jason Respitory Rate 2018-05-22 13:30:00 Memori al Wilder BMI Calculated 2018-05-22 10:16:00 Memori al Wilder Height 2018-05-22 10:16:00 149.86 cm [facility] Weight 2018-05-22 10:16:00 [facility] Heart Rate 2018-05-22 10:16:00 [facility] Temperature Oral 2018-05-22 10:16:00 97.9 F Erwin rial Jason (F) Temperature Oral 2017-11-19 13:40:00 97.2 F Erwin rial Jason (F) Systolic (mm Hg) 2017-11-19 13:40:00 Erwin rial Wilder Diastolic (mm Hg) 2017-11-19 13:40:00 Mem orial Jason Heart Rate 2017-11-19 13:40:00 [facility] Respitory Rate 2017-11-19 13:40:00 Memori al Jason Heart Rate 2017-11-19 05:24:00 [facility] Systolic (mm Hg) 2017-11-19 05:24:00 Erwin rial Wilder Diastolic (mm Hg) 2017-11-19 05:24:00 Mem orial Jason Respitory Rate 2017-11-19 05:24:00 Memori al Jason Temperature Oral 2017-11-19 05:24:00 98.1 F Erwin rial Jason (F) Respitory Rate 2017-11-19 01:15:00 Memori al Jason Systolic (mm Hg) 2017-11-19 01:15:00 Erwin rial Jason Diastolic (mm Hg) 2017-11-19 01:15:00 Mem orial Jason Heart Rate 2017-11-19 01:15:00 [facility] Jason Temperature Oral 2017-11-19 01:15:00 98.1 F Erwin rial Wilder (F) Weight 2017-11-18 14:00:00 [facility] Jason Weight 2017-11-17 14:00:00 [facility] Jason Weight 2017-11-15 14:00:00 [facility] Jason BMI Calculated 2017-11-15 05:43:00 Memori al Wilder Height 2017-11-15 05:43:00 162.56 cm [facility] Height 2017-11-14 22:41:00 149.86 cm [facility] Jason BMI Calculated 2017-11-14 22:41:00 Memori al Wilder Procedures Procedure Date / Time Performing Clinician Source Performed POCT GLUCOSE(AGE >30DAYS) 2022-11-09 20:33:00 Suzanne Blankenship [facility] COMP. METABOLIC PANEL 2022-11-09 20:32:00 Suzanne Blankenship [facility] ([id number]) Medical Branch CBC WITH DIFF 2022-11-09 20:32:[address] [facility] Branch URINALYSIS 2022-11-09 20:32:00 Regina Blankenshipda [facility] POCT GLUCOSE (AUTOMATED) 2022-10-31 22:41:00 Jennifer Olivera [facility] LIPASE 2022-10-31 21:39:00 Jennifer Olivera [facility] COMP. METABOLIC PANEL 2022-10-31 21:39:00 Jennifer Olivera [facility] ([id number]) [facility] AC PANEL 21 + LACTIC ACID 2022-10-31 20:49:00 [facility] WITH DIFF 2022-10-31 20:48:00 Jennifer Olivera [facility] URINALYSIS 2022-10-31 20:48:00 Jennifer Olivera [facility] POCT GLUCOSE (AUTOMATED) 2022-10-31 19:37:00 Jennifer Olivera [facility] POCT GLUCOSE (AUTOMATED) 2022-10-22 02:38:00 Lynette Fonseca [facility] URINALYSIS 2022-10-21 23:37:00 Lynette Fonseca [facility] COMP. METABOLIC PANEL 2022-10-21 23:12:00 Lynette Fonseca [facility] ([id number]) [facility] CBC WITH DIFF 2022-10-21 23:12:00 Lynette Fonseca [facility] AC PANEL 20 + LACTIC ACID 2022-10-21 23:10:00 Lynette Fonseca [facility] URINE CULTURE 2022-10-12 19:14:00 Alhaji Inman [facility] XR SKULL <4 VW 2022-10-06 00:48:18 Madonna Helms [facility] POCT GLUCOSE (AUTOMATED) 2022-10-06 00:14:00 Madonna Helms [facility] URINALYSIS 2022-10-05 23:13:00 Madonna Helms [facility] XR CHEST 1 VW 2022-10-05 22:46:00 Madonna Helms [facility] POCT GLUCOSE (AUTOMATED) 2022-10-05 22:34:00 Madonna Helms [facility] CT ANGIOGRAM 2022-10-05 22:21:20 Madonna Helms [facility] ABDOMEN/PELVIS [facility] LACTIC ACID WHOLE BLOOD 2022-10-05 21:48:00 Madonna Helms [facility] LIPASE 2022-10-05 21:47:00 Madonna Helms [facility] MAGNESIUM 2022-10-05 21:47:00 Madonna Helms [facility] COMP. METABOLIC PANEL 2022-10-05 21:47:00 Madonna Helms [facility] ([id number]) [facility] CBC WITH DIFF 2022-10-05 21:47:00 Madonna Helms [facility] COVID-19 (ID NOW RAPID 2022-10-05 21:47:00 Madonna Helms [facility] TESTING) [facility] POCT GLUCOSE (AUTOMATED) 2022-09-06 18:22:00 [facility] POCT GLUCOSE (AUTOMATED) 2022-09-06 18:22:00 [facility] POCT GLUCOSE (AUTOMATED) 2022-09-06 13:41:00 [facility] POCT GLUCOSE (AUTOMATED) 2022-09-06 13:41:00 Ab Wolff [facility] BASIC METABOLIC PANEL 2022-09-06 11:02:00 Ab Wolff [facility] (NA, K, CL, CO2, GLUCOSE, Medica l Branch BUN, CREATININE, CA) CBC WITHOUT DIFF 2022-09-06 11:02:00 Ab Wolff [facility] BASIC METABOLIC PANEL 2022-09-06 11:02:00 Ab Wolff [facility] (NA, K, CL, CO2, GLUCOSE, Medica l Branch BUN, CREATININE, CA) CBC WITHOUT DIFF 2022-09-06 11:02:00 Ab Wolff [facility] POCT GLUCOSE (AUTOMATED) 2022-09-06 02:49:00 [facility] POCT GLUCOSE (AUTOMATED) 2022-09-06 02:49:00 [facility] POCT GLUCOSE (AUTOMATED) 2022-09-05 22:57:00 [facility] POCT GLUCOSE (AUTOMATED) 2022-09-05 22:57:00 [facility] POCT GLUCOSE (AUTOMATED) 2022-09-05 21:25:00 [facility] POCT GLUCOSE (AUTOMATED) 2022-09-05 21:25:00 [facility] TISSUE 2022-09-05 20:31:00 [facility]ANAEROBIC Medica l Branch ) FUNGUS (ROUTINE) CULTURE 2022-09-05 20:31:00 Mejia Villavicencio [facility] TISSUE 2022-09-05 20:31:00 [facility]IC/ANAEROBIC Medica l Branch ) FUNGUS (ROUTINE) CULTURE 2022-09-05 20:31:00 Mejia Villavicencio [facility] WOUND DEBRIDEMENT 2022-09-05 19:57:00 Saud [facility] WOUND DEBRIDEMENT 2022-09-05 19:57:00 Saud [facility] POCT GLUCOSE (AUTOMATED) 2022-09-05 18:17:00 [facility] POCT GLUCOSE (AUTOMATED) 2022-09-05 18:17:00 [facility] POCT GLUCOSE (AUTOMATED) 2022-09-05 15:20:00 [facility] POCT GLUCOSE (AUTOMATED) 2022-09-05 15:20:00 [facility] POCT GLUCOSE (AUTOMATED) 2022-09-05 03:10:00 [facility] POCT GLUCOSE (AUTOMATED) 2022-09-05 03:10:00 [facility] 2022-09-04 22:42:00 [facility] POCT GLUCOSE (AUTOMATED) 2022-09-04 22:42:00 [facility] POCT GLUCOSE (AUTOMATED) 2022-09-04 17:34:00 TalleyDontae lynn versity [facility] POCT GLUCOSE (AUTOMATED) 2022-09-04 17:34:00 Mayank Dontae Lauren versity [facility] POCT GLUCOSE (AUTOMATED) 2022-09-04 16:41:00 [facility]) 2022-09-04 16:41:00 [facility] ([facility]OMATED) 2022-09-04 13:15:00 aMyankDontae [facility]SE (AUTOMATED) 2022-09-04 13:15:00 Mayank [facility]ae [facility] (AUTOMATED) 2022-09-04 07:38[facility] 2022-09-04 07:38:00 Opal [facility] POCT GLUCOSE (AUTOMATED) 2022-09-04 06:43:00 Opal [facility] POCT GLUCOSE (AUTOMATED) 2022-09-04 06:43:00 Opal [facility] BASIC METABOLIC PANEL 2022-09-04 06:03:00 [facility] ([facility], K, CL, CO2, GLUCOSE, Medica l Branch BUN, CREATININE, CA) BASIC METABOLIC PANEL 2022-09-04 06:03:00 [facility] (NA, K, CL, CO2, GLUCOSE, Medica l Branch BUN, CREATININE, CA) POCT GLUCOSE (AUTOMATED) 2022-09-04 05:32:00 Opal [facility] POCT GLUCOSE (AUTOMATED) 2022-09-04 05:32:00 Opal [facility] URINE CULTURE 2022-09-04 04:20:00 Opal [facility] URINE CULTURE 2022-09-04 04:20:00 Opal [facility] AC PANEL 21 + LACTIC ACID 2022-09-04 04:18:00 Kwadwo Joseph [facility] AC PANEL 21 + LACTIC ACID 2022-09-04 04:18:00 Kwadwo Joseph [facility] BASIC METABOLIC PANEL 2022-09-04 02:48:00 Diomedes Joseph [facility] (NA, K, CL, CO2, GLUCOSE, Medica l Branch BUN, CREATININE, CA) CBC WITH DIFF 2022-09-04 02:48:00 Opal [facility] URINALYSIS 2022-09-04 02:48:00 Opal [facility] BASIC METABOLIC PANEL 2022-09-04 02:48:00 Diomedes Joseph [facility] (NA, K, CL, CO2, GLUCOSE, Medica l Branch BUN, CREATININE, CA) CBC WITH DIFF 2022-09-04 02:48:00 Opal [facility] URINALYSIS 2022-09-04 02:48:00 Opal [facility] POCT GLUCOSE (AUTOMATED) 2022-08-25 02:37:00 Madonna Helms [facility] LIPASE 2022-08-25 00:31:00 Madonna Helms [facility] COMP. METABOLIC PANEL 2022-08-25 00:31:00 [id number] URINALYSIS 2022-08-24 23:49:00 Madonna Helms [facility] CBC WITH DIFF 2022-08-24 23:43:00 Madonna Helms [facility] AC PANEL 21 + LACTIC ACID 2022-08-24 00:00:00 Susan Adhikari [facility] POCT GLUCOSE (AUTOMATED) 2022-08-23 23:07:00 Susan Adhikari [facility] POCT GLUCOSE (AUTOMATED) 2022-08-23 22:13:00 Susan Adhikari [facility] MAGNESIUM 2022-08-23 21:40:00 Susan Adhikari [facility] COMP. METABOLIC PANEL 2022-08-23 21:40:00 Susan Adhikari [facility] ([id number]) [facility] CBC WITH DIFF 2022-08-23 21:40:00 Susan Adhikari [facility] POCT GLUCOSE (AUTOMATED) 2022-08-23 21:13:00 Susan Adhikari [facility] POCT GLUCOSE (AUTOMATED) 2022-08-16 23:54:00 Courtney Mendes [facility] POCT GLUCOSE (AUTOMATED) 2022-08-16 17:33:00 Courtney Mendes [facility] POCT GLUCOSE (AUTOMATED) 2022-08-16 13:57:00 Courtney Mendes [facility] PHOSPHORUS 2022-08-16 11:34:00 Courtney Mendes [facility] MAGNESIUM 2022-08-16 11:34:00 Courtney Mendes [facility] FREE T4 2022-08-16 11:34:00 Yolis jennifer [facility] THYROID STIMULATING 2022-08-16 11:34:00 Courtney Mendes [facility] HORMONE [facility] COMP. METABOLIC PANEL 2022-08-16 11:34:00 Courtney Mendes [facility] ([id number]) [facility] LIPID PANEL ([id number])(TOTAL 2022-08-16 11:34:00 Courtney Mendes [facility] CHOLESTEROL, [facility] TRIGLYCERIDES, HDL) CBC WITH DIFF 2022-08-16 11:34:00 Courtney Mendes [facility] GLYCOSYLATED HEMOGLOBIN 2022-08-16 11:34:00 Courtney Mendes [facility] (A1C) [facility] N-TERMINAL PRO-BNP 2022-08-16 11:34:00 Courtney Mendes [facility] FREE T3 2022-08-16 11:34:00 Yolis jennifer [facility] POCT GLUCOSE (AUTOMATED) 2022-08-16 09:33:00 Courtney Mendes [facility] POCT GLUCOSE (AUTOMATED) 2022-08-16 02:19:00 Jennifer Olivera [facility] POCT GLUCOSE (AUTOMATED) 2022-08-16 01:09:00 Jennifer Olivera [facility] POCT GLUCOSE (AUTOMATED) 2022-08-15 23:44:00 Jennifer Olivera [facility] CT ABDOMEN PELVIS W 2022-08-15 23:40:00 Jennifer Olivera [facility] URINALYSIS 2022-08-15 22:21:00 Jennifer Olivera [facility] POCT GLUCOSE (AUTOMATED) 2022-08-15 22:19:00 Jennifer Olivera [facility] AC PANEL 20 + LACTIC ACID 2022-08-15 20:54:00 [facility] 2022-08-15 20:41:00 Jennifer Olivera [facility] TROPONIN I 2022-08-15 20:41:00 Jennifer Olivera [facility] COMP. METABOLIC PANEL 2022-08-15 20:41:00 Jennifer Olivera [facility] ([id number]) [facility] CBC WITH DIFF 2022-08-15 20:41:00 Jennifer Olivera [facility] N-TERMINAL PRO-BNP 2022-08-15 20:41:00 Jennifer Olivera [facility] HB ECG ROUTINE & RHYTHM 2022-08-15 20:37:16 Jennifer Olivera [facility] EMERGENCY DEPARTMENT 2022-08-15 06:01:00 Doctor Unassigned, No [facility] DOCUMENTS [facility] PATIENT QUESTIONNAIRE 2022-07-05 06:01:00 Doctor Unassigned, No [facility] POCT HEMOGLOBIN A1C TEST 2022-06-25 19:04:00 Yudi Holloway [facility] POCT GLUCOSE (AUTOMATED) 2022-05-21 22:58:00 Negar Guardado [facility] POCT GLUCOSE (AUTOMATED) 2022-05-21 18:00:00 Negar Guardado [facility] POCT GLUCOSE (AUTOMATED) 2022-05-21 13:46:00 Negar Guardado [facility] BASIC METABOLIC PANEL 2022-05-21 10:49:00 Cathleen Excela [facility] (NA, K, CL, CO2, GLUCOSE, Medica l Branch BUN, CREATININE, CA) CBC WITH DIFF 2022-05-21 10:49:00 Cathleen [facility] LACTIC ACID WHOLE BLOOD 2022-05-21 02:31:00 Cathleen [facility] MRSA / MSSA SCREEN BY 2022-05-21 02:31:00 Negar Guardado [facility] PCR, [facility] POCT GLUCOSE (AUTOMATED) 2022-05-21 02:09:00 Negar Guardado [facility] BLOOD CULTURE SCREEN 2022-05-21 00:35:00 Lynette Fonseca [facility] URINALYSIS 2022-05-20 23:26:00 Lynette Fonseca [facility] BLOOD CULTURE SCREEN 2022-05-20 23:15:00 Lynette Fonseca [facility] COMP. METABOLIC PANEL 2022-05-20 23:08:00 Lynette Fonseca [id number] CBC WITH DIFF 2022-05-20 23:08:00 Lynette Fonseca [facility] LACTIC ACID WHOLE BLOOD 2022-05-20 23:07:00 Lynette Fonseca [facility] CT ABDOMEN PELVIS W 2022-05-13 02:06:[address] [facility] CONTRAST [facility] Branch LIPASE 2022-05-13 00:59:00 Carmelita Serna [facility] COMP. METABOLIC PANEL 2022-05-13 00:59:00 Carmelita Serna [facility] ([id number]) Medical Branch CBC WITH DIFF 2022-05-13 00:59:00 Carmelita Serna [facility] URINALYSIS 2022-05-13 00:49:00 Carmelita Serna [facility] POCT GLUCOSE (AUTOMATED) 2022-05-06 13:14:00 [facility] POCT GLUCOSE (AUTOMATED) 2022-05-06 01:14:00 Edkeri [facility] POCT GLUCOSE (AUTOMATED) 2022-05-05 21:19:00 Edkeri [facility] BASIC METABOLIC PANEL 2022-05-05 11:[facility] ([facility], [facility], CL, CO2, GLUCOSE, Medica l Branch BUN, CREATININE, CA) CBC WITH DIFF 2022-05-05 11:16:00 [facility] S[facility]EN BY 2022-05-05 01:13:00 Negar Guardado [facility] PCR, [facility] POCT GLUCOSE (AUTOMATED) 2022-05-05 01:11:00 Kosta [facility] POCT GLUCOSE (AUTOMATED) 2022-05-04 21:32:00 Kosta [facility] URINE CULTURE 2022-05-04 16:17:00 [facility]SE (AUTOMATED) 2022-05-04 16:08:00 Kosta [facility] POCT GLUCOSE (AUTOMATED) 2022-05-04 12:43:00 Kosta [facility] ASPIRATE OR ABSCESS 2022-05-04 07:35:00 Opal [facility] CULTURE(AEROBIC/ANAEROBIC Medica l Branch ) URINALYSIS 2022-05-04 07:32:00 [facility] CT ABDOMEN PELVIS W 2022-05-04 07:25:15 Opal [facility] CONTRAST [facility] BLOOD CULTURE SCREEN 2022-05-04 06:01:00 Diomedes Joseph [facility] LIPASE 2022-05-04 06:01:00 Opal [facility] COMP. METABOLIC PANEL 2022-05-04 06:01:00 [place] [facility] ([id number]) [facility] CBC WITH DIFF 2022-05-04 06:01:00 [place], [facility] POCT GLUCOSE (AUTOMATED) 2022-02-23 18:34:00 Victorino Conroy [facility] POCT GLUCOSE (AUTOMATED) 2022-02-23 14:37:00 Victorino Conroy [facility] BASIC METABOLIC PANEL 2022-02-23 13:22:00 Concetta Jackson [facility] (NA, K, CL, CO2, GLUCOSE, Medica l Branch BUN, CREATININE, CA) CBC WITH DIFF 2022-02-23 13:22:00 [facility]SE (AUTOMATED) 2022-02-23 10:56:00 Victorino Conroy [facility] POCT GLUCOSE (AUTOMATED) 2022-02-23 05:46:00 Victorino Conroy [facility] POCT GLUCOSE (AUTOMATED) 2022-02-23 02:17:00 Victorino Conroy [facility] POCT GLUCOSE (AUTOMATED) 2022-02-22 23:13:00 Victorino Conroy [facility] POCT GLUCOSE (AUTOMATED) 2022-02-22 18:22:00 Victorino Conroy [facility] POCT GLUCOSE (AUTOMATED) 2022-02-22 14:56:00 Victorino Conroy [facility] BASIC METABOLIC PANEL 2022-02-22 10:03:00 David Wynn [facility] (NA, K, CL, CO2, GLUCOSE, Medica l Branch BUN, CREATININE, CA) CBC WITH DIFF 2022-02-22 10:03:[address] [facility] POCT GLUCOSE (AUTOMATED) 2022-02-22 02:18:00 [facility]OMATED) 2022-02-21 22:26:00 [facility] PO[facility]UCOSE (AUTOMATED) 2022-02-21 18:57:00 [facility] PO[facility]SE (AUTOMATED) 2022-02-21 18:57:00 Victorino Conroy [facility] US DUPLEX VENOUS ARMS 2022-02-21 17:28:45 Kingsley [facility] BILATERAL - BY VASCULAR Medical Branch LAB US DUPLEX VENOUS ARMS 2022-02-21 17:28:45 Kingsley [facility] BILATERAL - BY VASCULAR [facility] LAB POCT GLUCOSE (AUTOMATED) 2022-02-21 15:20:00 Victorino Conroy [facility] POCT GLUCOSE (AUTOMATED) 2022-02-21 15:20:00 Victorino Conroy [facility] MAGNESIUM 2022-02-21 10:19:00 Ayo [facility] BASIC METABOLIC PANEL 2022-02-21 10:19:00 Negar Rollins [facility] (NA, K, CL, CO2, GLUCOSE, [place] Medica l Branch BUN, CREATININE, CA) CBC WITH DIFF 2022-02-21 10:19:00 Ayo [facility] MAGNESIUM 2022-02-21 10:19:00 Ayo [facility] BASIC METABOLIC PANEL 2022-02-21 10:19:00 Negar Rollins [facility] (NA, K, CL, CO2, GLUCOSE, [place] [facility] BUN, CREATININE, CA) CBC WITH DIFF 2022-02-21 10:19:00 Ayo [facility] POCT GLUCOSE (AUTOMATED) 2022-02-21 02:44:00 [facility] PO[facility]SE (AUTOMATED) 2022-02-21 02:44:00 [facility] PO[facility] GLUCOSE (AUTOMATED) 2022-02-20 22:02:00 Victorino Conroy [facility] POCT GLUCOSE (AUTOMATED) 2022-02-20 22:02:00 Victorino Conroy [facility] FUNGUS (ROUTINE) CULTURE 2022-02-20 17:03:00 Chalino Paul [facility] TISSUE 2022-02-20 17:03:[address] [facility] CULTURE(AEROBIC/ANAEROBIC A Medica l Branch ) FUNGUS (ROUTINE) CULTURE 2022-02-20 17:03:00 Chalino Paul [facility] TISSUE 2022-02-20 17:03:[address] [facility] CULTURE(AEROBIC/ANAEROBIC A Medica l Branch ) FUNGUS (ROUTINE) CULTURE 2022-02-20 17:00:00 Chalino Paul [facility] TISSUE 2022-02-20 17:00:[address] [facility] CULTURE(AEROBIC/ANAEROBIC A Medica l Branch ) FUNGUS (ROUTINE) CULTURE 2022-02-20 17:00:00 Chalino Paul [facility] TISSUE 2022-02-20 17:00:[address] [facility] CULTURE(AEROBIC/ANAEROBIC A Medica l Branch ) FUNGUS (ROUTINE) CULTURE 2022-02-20 16:59:00 Chalino Paul [facility] TISSUE 2022-02-20 16:59:[address] [facility] CULTURE(AEROBIC/ANAEROBIC A Medica l Branch ) FUNGUS (ROUTINE) CULTURE 2022-02-20 16:59:00 Chalino Paul [facility] TISSUE 2022-02-20 16:59:[address] [facility] CULTURE(AEROBIC/ANAEROBIC A Medica l Branch ) FOOT DEBRIDEMENT 2022-02-20 16:11:00 Sarah Beth Paul [facility] FOOT DEBRIDEMENT 2022-02-20 16:11:00 Sarah Beth Paul [facility] COVID-19 (ID NOW RAPID 2022-02-20 14:36:00 David Wynn [facility] TESTING) Medical Branch LAB ONLY COVID 2022-02-20 14:36:00 [facility] (ID NOW RAPID 2022-02-20 14:36:00 David Wynn [facility] TESTING) Medical Branch LAB ONLY COVID 2022-02-20 14:36:00 [facility]SE (AUTOMATED) 2022-02-20 14:07:00 Bret Martinez [facility] POCT GLUCOSE (AUTOMATED) 2022-02-20 14:07:00 Bret Martinez [facility] HB ECG ROUTINE & RHYTHM 2022-02-20 13:27:17 Renetta [facility] STRIP [facility] CBC WITH DIFF 2022-02-20 10:55:00 Ayo [facility] CBC WITH DIFF 2022-02-20 10:55:00 Ayo [facility] MAGNESIUM 2022-02-20 10:40:00 Ayo [facility] BASIC METABOLIC PANEL 2022-02-20 10:40:00 Negar Rollins [facility] (NA, K, CL, CO2, GLUCOSE, [place] [facility] BUN, CREATININE, CA) COVID-19 (ID NOW RAPID 2022-02-20 10:40:00 Lucina Lyles [facility] TESTING) Medical Branch LAB ONLY COVID 2022-02-20 10:40:00 Lucina Lyles [facility] INTERPRETATION Medical Branch MAGNESIUM 2022-02-20 10:40:00 Ayo [facility] BASIC METABOLIC PANEL 2022-02-20 10:40:00 Negar Rollins [facility] (NA, K, CL, CO2, GLUCOSE, [place] [facility] BUN, CREATININE, CA) COVID-19 (ID NOW RAPID 2022-02-20 10:40:00 [facility] 2022-02-20 10:40:00 Rafal [facility] POCT GLUCOSE (AUTOMATED) 2022-02-20 02:29:00 Bret Martinez [facility] POCT GLUCOSE (AUTOMATED) 2022-02-20 02:29:00 Bret Mratinez [facility] POCT GLUCOSE (AUTOMATED) 2022-02-19 23:39:00 Bret Martinez [facility] POCT GLUCOSE (AUTOMATED) 2022-02-19 23:39:00 Bret Martinez [facility] POCT GLUCOSE (AUTOMATED) 2022-02-19 17:10:00 Bret Martinez [facility] POCT GLUCOSE (AUTOMATED) 2022-02-19 17:10:00 Bret Martinez [facility] POCT GLUCOSE (AUTOMATED) 2022-02-19 17:10:00 Bret Martinez [facility] POCT GLUCOSE (AUTOMATED) 2022-02-19 15:54:00 Bret Martinez [facility] POCT GLUCOSE (AUTOMATED) 2022-02-19 15:54:00 Bret Martinez [facility] POCT GLUCOSE (AUTOMATED) 2022-02-19 15:54:00 Bret Martinez [facility] [facility] SEDIMENTATION RATE 2022-02-19 08:36:00 Indira Perry [facility] BASIC METABOLIC PANEL 2022-02-19 08:36:00 Nai Naranjo [facility] (NA, K, CL, CO2, GLUCOSE, Medica l Branch BUN, CREATININE, CA) CBC WITH DIFF 2022-02-19 08:36:00 Nai Naranjo [facility] MAGNESIUM 2022-02-19 08:36:00 Nai Naranjo [facility] MAGNESIUM 2022-02-19 08:36:[address] [facility] BASIC METABOLIC PANEL 2022-02-19 08:36:00 Jose A [facility] (NA, K, CL, CO2, GLUCOSE, Medica l Branch BUN, CREATININE, CA) SEDIMENTATION RATE 2022-02-19 08:36:00 [facility] 2022-02-19 08:36:[address] [facility] MAGNESIUM 2022-02-19 08:36:00 [facility] 2022-02-19 08:36:00 [facility] ([facility], K, CL, CO2, GLUCOSE, Medica l Branch BUN, CREATININE, CA) SEDIMENTATION RATE 2022-02-19 08:36:00 Vicky [facility] CBC WITH DIFF 2022-02-19 08:36:[address] [facility] POCT GLUCOSE (AUTOMATED) 2022-02-19 00:57:00 Vic Mcdonald [facility] POCT GLUCOSE (AUTOMATED) 2022-02-19 00:57:00 Fiorella Mcdonaldy B [facility] POCT GLUCOSE (AUTOMATED) 2022-02-19 00:57:00 Vic Mcdonald [facility] POCT GLUCOSE (AUTOMATED) 2022-02-18 21:26:00 Fiorella Mcdonaldy B [facility] POCT GLUCOSE (AUTOMATED) 2022-02-18 21:26:00 Vic Mcdonald B [facility] POCT GLUCOSE (AUTOMATED) 2022-02-18 21:26:00 Fiorella Mcdonaldy B [facility] POCT GLUCOSE (AUTOMATED) 2022-02-18 16:47:00 Vic Mcdonald B [facility] POCT GLUCOSE (AUTOMATED) 2022-02-18 16:47:00 Vic Mcdonald B [facility] POCT GLUCOSE (AUTOMATED) 2022-02-18 16:47:00 Vic Mcdonald B [facility] BASIC METABOLIC PANEL 2022-02-18 14:21:00 Jose A [facility] (NA, K, CL, CO2, GLUCOSE, Medica l Branch BUN, CREATININE, CA) C-REACTIVE PROTEIN 2022-02-18 14:21:00 [facility] C-REACTIVE PROTEIN 2022-02-18 14:21:00 [facility] BASIC METABOLIC PANEL 2022-02-18 14:21:00 Jose A [facility] (NA, K, CL, CO2, GLUCOSE, Medica l Branch BUN, CREATININE, CA) C-REACTIVE PROTEIN 2022-02-18 14:21:00 [facility] BASIC METABOLIC PANEL 2022-02-18 14:21:00 Jose A [facility] (NA, K, CL, CO2, GLUCOSE, Medica l Branch BUN, CREATININE, CA) POCT GLUCOSE (AUTOMATED) 2022-02-18 12:34:00 Vic Mcdonald [facility] POCT GLUCOSE (AUTOMATED) 2022-02-18 12:34:00 Vic Mcdonald [facility] POCT GLUCOSE (AUTOMATED) 2022-02-18 12:34:00 Vic Mcdonald [facility] POCT GLUCOSE (AUTOMATED) 2022-02-18 01:28:00 Vic Mcdonald [facility] POCT GLUCOSE (AUTOMATED) 2022-02-18 01:28:00 Vic Mcdonald B [facility] POCT GLUCOSE (AUTOMATED) 2022-02-18 01:28:00 Vic Mcdonald [facility] POCT GLUCOSE (AUTOMATED) 2022-02-17 21:13:00 Vic Mcdonald [facility] POCT GLUCOSE (AUTOMATED) 2022-02-17 21:13:00 Vic Mcdonald [facility] POCT GLUCOSE (AUTOMATED) 2022-02-17 21:13:00 Vic Mcdonald [facility] POCT GLUCOSE (AUTOMATED) 2022-02-17 16:39:00 Vic Mcdonald [facility] POCT GLUCOSE (AUTOMATED) 2022-02-17 16:39:00 Vic Mcdonald [facility] POCT GLUCOSE (AUTOMATED) 2022-02-17 16:39:00 Vic Mcdonald [facility] POCT GLUCOSE (AUTOMATED) 2022-02-17 13:11:00 Vic Mcdonald [facility] POCT GLUCOSE (AUTOMATED) 2022-02-17 13:11:00 Vic Mcdonald [facility] POCT GLUCOSE (AUTOMATED) 2022-02-17 13:11:00 Vic Mcdonald [facility] MAGNESIUM 2022-02-17 10:28:00 Corbin [facility] BASIC METABOLIC PANEL 2022-02-17 10:28:00 [facility] (NA, K, CL, CO2, GLUCOSE, Medica l Branch BUN, CREATININE, CA) MAGNESIUM 2022-02-17 10:28:00 [facility] BASIC METABOLIC PANEL 2022-02-17 10:28:00 [facility] (NA, K, CL, CO2, GLUCOSE, Medica l Branch BUN, CREATININE, CA) MAGNESIUM 2022-02-17 10:28:00 [facility] BASIC METABOLIC PANEL 2022-02-17 10:28:00 [facility] (NA, K, CL, CO2, GLUCOSE, Medica l Branch BUN, CREATININE, CA) POCT GLUCOSE (AUTOMATED) 2022-02-17 10:01:00 Vic Mcdonald [facility] POCT GLUCOSE (AUTOMATED) 2022-02-17 10:01:00 Vic Mcdonald [facility] POCT GLUCOSE (AUTOMATED) 2022-02-17 10:01:00 Vic Mcdonald [facility] POCT GLUCOSE (AUTOMATED) 2022-02-17 06:32:00 Vic Mcdonald [facility] POCT GLUCOSE (AUTOMATED) 2022-02-17 06:32:00 Vic Mcdonald [facility] POCT GLUCOSE (AUTOMATED) 2022-02-17 06:32:00 Vic Mcdonald [facility] BASIC METABOLIC PANEL 2022-02-17 02:01:00 Lacey Alaniz [facility] (NA, K, CL, CO2, GLUCOSE, Medica l Branch BUN, CREATININE, CA) BASIC METABOLIC PANEL 2022-02-17 02:01:00 Lacey Alaniz [facility] (NA, K, CL, CO2, GLUCOSE, Medica l Branch BUN, CREATININE, CA) BASIC METABOLIC PANEL 2022-02-17 02:01:00 Lacey Alaniz [facility] (NA, K, CL, CO2, GLUCOSE, Medica l Branch BUN, CREATININE, CA) POCT GLUCOSE (AUTOMATED) 2022-02-17 01:53:00 Vic Mcdonald [facility] POCT GLUCOSE (AUTOMATED) 2022-02-17 01:53:00 Vic Mcdonald [facility] POCT GLUCOSE (AUTOMATED) 2022-02-17 01:53:00 Vic Mcdonald [facility] POCT GLUCOSE (AUTOMATED) 2022-02-16 23:02:00 Vic Mcdonald [facility] POCT GLUCOSE (AUTOMATED) 2022-02-16 23:02:00 Vic Mcdonald [facility] POCT GLUCOSE (AUTOMATED) 2022-02-16 23:02:00 Vic Mcdonald [facility] XR FOOT 3+ VW BILATERAL 2022-02-16 21:35:00 Sarah Beth Paul [facility] XR FOOT 3+ VW BILATERAL 2022-02-16 21:35:00 Kal Pauluwatosin [facility] XR FOOT 3+ VW BILATERAL 2022-02-16 21:35:00 Sarah Beth Paul [facility] POCT GLUCOSE (AUTOMATED) 2022-02-16 20:45:00 Vic Mcdonald [facility] POCT GLUCOSE (AUTOMATED) 2022-02-16 20:45:00 Vic Mcdonald [facility] POCT GLUCOSE (AUTOMATED) 2022-02-16 20:45:00 Vic Mcdonald [facility] POCT GLUCOSE (AUTOMATED) 2022-02-16 16:41:00 Vic Mcdonald [facility] POCT GLUCOSE (AUTOMATED) 2022-02-16 16:41:00 Vic Mcdonald [facility] POCT GLUCOSE (AUTOMATED) 2022-02-16 16:41:00 Vic Mcdonald [facility] BASIC METABOLIC PANEL 2022-02-16 15:35:00 Vic Mcdonald [facility] (NA, K, CL, CO2, GLUCOSE, Medica l Branch BUN, CREATININE, CA) BASIC METABOLIC PANEL 2022-02-16 15:35:00 Vic Mcdonald [facility] (NA, K, CL, CO2, GLUCOSE, Medica l Branch BUN, CREATININE, CA) BASIC METABOLIC PANEL 2022-02-16 15:35:00 Vic Mcdonald [facility] (NA, K, CL, CO2, GLUCOSE, Medica l Branch BUN, CREATININE, CA) BETA HYDROXY-BUTYRATE 2022-02-16 15:34:00 Ab Rodríguez [facility] BETA HYDROXY-BUTYRATE 2022-02-16 15:34:00 Ab Rodríguez [facility] BETA HYDROXY-BUTYRATE 2022-02-16 15:34:00 bA Rodríguez [facility] POCT GLUCOSE (AUTOMATED) 2022-02-16 14:20:00 Vic Mcdonald [facility] POCT GLUCOSE (AUTOMATED) 2022-02-16 14:20:00 Vic Mcdonald [facility] POCT GLUCOSE (AUTOMATED) 2022-02-16 14:20:00 Vic Mcdonald [facility] POCT GLUCOSE (AUTOMATED) 2022-02-16 12:52:00 Vic Mcdonald [facility] POCT GLUCOSE (AUTOMATED) 2022-02-16 12:52:00 Vic Mcdonald [facility] POCT GLUCOSE (AUTOMATED) 2022-02-16 12:52:00 Vic Mcdonald [facility] POCT GLUCOSE (AUTOMATED) 2022-02-16 09:04:00 Vic Mcdonald [facility] POCT GLUCOSE (AUTOMATED) 2022-02-16 09:04:00 Vic Mcdonald [facility] POCT GLUCOSE (AUTOMATED) 2022-02-16 09:04:00 Vic Mcdonald [facility] BASIC METABOLIC PANEL 2022-02-16 06:13:00 Myrna Chen [facility] (NA, K, CL, CO2, GLUCOSE, Medica l Branch BUN, CREATININE, CA) GLUTAMIC ACID 2022-02-16 06:13:00 Myrna Chen [facility] CBC WITHOUT DIFF 2022-02-16 06:13:00 [facility]-02-16 06:13:00 Myrna Chen [facility] MAGNESIUM 2022-02-16 06:13:00 Myrna Chen [facility] BASIC METABOLIC PANEL 2022-02-16 06:13:00 Myrna Chen [facility] (NA, K, CL, CO2, GLUCOSE, Medica l Branch BUN, CREATININE, CA) CBC WITHOUT DIFF 2022-02-16 06:13:00 [facility] 2022-02-16 06:13:00 Myrna Chen [facility] MAGNESIUM 2022-02-16 06:13:00 April, [facility] BASIC METABOLIC PANEL 2022-02-16 06:13:00 [facility] (NA, K, CL, CO2, GLUCOSE, Medica l Branch BUN, CREATININE, CA) CBC WITHOUT DIFF 2022-02-16 06:13:00 [facility]22-02-16 06:13:00 [facility] POCT GLUCOSE (AUTOMATED) 2022-02-16 05:45:00 Vic Mcdonald [facility] POCT GLUCOSE (AUTOMATED) 2022-02-16 05:45:00 Vic Mcdonald [facility] POCT GLUCOSE (AUTOMATED) 2022-02-16 05:45:00 Vic Mcdonald [facility] POCT GLUCOSE (AUTOMATED) 2022-02-16 01:26:00 Vic Mcdonald [facility] POCT GLUCOSE (AUTOMATED) 2022-02-16 01:26:00 Vic Mcdonald [facility] POCT GLUCOSE (AUTOMATED) 2022-02-16 01:26:00 Vic Mcdonald [facility] POCT GLUCOSE (AUTOMATED) 2022-02-15 23:42:00 Vic Mcdonald [facility] POCT GLUCOSE (AUTOMATED) 2022-02-15 23:42:00 Vic Mcdonald [facility] POCT GLUCOSE (AUTOMATED) 2022-02-15 23:42:00 Vic Mcdonald [facility] BASIC METABOLIC PANEL 2022-02-15 22:51:00 Vic Mcdonald [facility] [place] (NA, K, CL, CO2, GLUCOSE, Medica l Branch BUN, CREATININE, CA) BASIC METABOLIC PANEL 2022-02-15 22:51:00 Vic Mcdonald [facility] Dist[facility] (NA, K, CL, CO2, GLUCOSE, Medica l Branch BUN, CREATININE, CA) BASIC METABOLIC PANEL 2022-02-15 22:51:00 Vic Mcdonald [facility] (NA, K, CL, CO2, GLUCOSE, Medica l Branch BUN, CREATININE, CA) POCT GLUCOSE (AUTOMATED) 2022-02-15 22:37:00 Vic Mcdonald [facility] POCT GLUCOSE (AUTOMATED) 2022-02-15 22:37:00 Vic Mcdonald [facility] POCT GLUCOSE (AUTOMATED) 2022-02-15 22:37:00 Vic Mcdonald [facility] POCT GLUCOSE (AUTOMATED) 2022-02-15 21:30:00 Vic Mcdonald [facility] POCT GLUCOSE (AUTOMATED) 2022-02-15 21:30:00 Vic Mcdoanld [facility] POCT GLUCOSE (AUTOMATED) 2022-02-15 21:30:00 Vic Mcdonald [facility] POCT GLUCOSE (AUTOMATED) 2022-02-15 20:05:00 Vic Mcdonald [facility] POCT GLUCOSE (AUTOMATED) 2022-02-15 20:05:00 Vic Mcdonald [facility] POCT GLUCOSE (AUTOMATED) 2022-02-15 20:05:00 Vic Mcdonald [facility] HB ECG ROUTINE & RHYTHM 2022-02-15 19:59:13 Lacey Alaniz [facility] HB ECG ROUTINE & RHYTHM 2022-02-15 19:59:13 Lacey Alaniz [facility] HB ECG ROUTINE & RHYTHM 2022-02-15 19:59:13 Lacey Alaniz [facility] POCT GLUCOSE (AUTOMATED) 2022-02-15 19:06:00 Vic Mcdonald [facility] POCT GLUCOSE (AUTOMATED) 2022-02-15 19:06:00 Vic Mcdonald [facility] POCT GLUCOSE (AUTOMATED) 2022-02-15 19:06:00 Vic Mcdnoald Un [facility] BLOOD CULTURE SCREEN 2022-02-15 18:49:00 [facility]-15 18:49:00 [facility] 2022-02-15 18:49:00 [facility] 2022-02-15 18:48:00 [facility] 2022-02-15 18:48:00 [facility] 2022-02-15 18:48:00 [facility] 2022-02-15 18:34:00 Butt [facility] XR CHEST 1 2022-02-15 18:34:00 Butt, [facility] XR CHEST 1 2022-02-15 18:34:00 Butt, [facility] BASIC METABOLIC PANEL 2022-02-15 17:49:00 Vic Mcdonald [facility] (NA, K, CL, CO2, GLUCOSE, Medica l Branch BUN, CREATININE, CA) TROPONIN I 2022-02-15 17:49:00 [facility] TROPONIN I 2022-02-15 17:49:00 [facility] BASIC METABOLIC PANEL 2022-02-15 17:49:00 Vic Mcdonald [facility] (NA, K, CL, CO2, GLUCOSE, Medica l Branch BUN, CREATININE, CA) TROPONIN I 2022-02-15 17:49:00 [facility] BASIC METABOLIC PANEL 2022-02-15 17:49:00 Vic Mcdonald [facility] (NA, K, CL, CO2, GLUCOSE, Medica l Branch BUN, CREATININE, CA) POCT GLUCOSE (AUTOMATED) 2022-02-15 17:27:00 Vic Mcdonald [facility] POCT GLUCOSE (AUTOMATED) 2022-02-15 17:27:00 Vic Mcdonald [facility] POCT GLUCOSE (AUTOMATED) 2022-02-15 17:27:00 Vic Mcdonald [facility] POCT GLUCOSE (AUTOMATED) 2022-02-15 15:53:00 Vic Mcdonald [facility] POCT GLUCOSE (AUTOMATED) 2022-02-15 15:53:00 Vic Mcdonald [facility] POCT GLUCOSE (AUTOMATED) 2022-02-15 15:53:00 Vic Mcdonald [facility] BASIC METABOLIC PANEL 2022-02-15 15:32:00 Vic Mcdonald [facility] [place] (NA, K, CL, CO2, GLUCOSE, Medica l Branch BUN, CREATININE, CA) BASIC METABOLIC PANEL 2022-02-15 15:32:00 Vic Mcdonald [facility] [place] (NA, K, CL, CO2, GLUCOSE, Medica l Branch BUN, CREATININE, CA) BASIC METABOLIC PANEL 2022-02-15 15:32:00 Vic Mcdonald [facility] [place] (NA, K, CL, CO2, GLUCOSE, Medica l Branch BUN, CREATININE, CA) POCT GLUCOSE (AUTOMATED) 2022-02-15 14:56:00 Vic Mcdonald [facility] POCT GLUCOSE (AUTOMATED) 2022-02-15 14:56:00 Vic Mcdonald [facility] POCT GLUCOSE (AUTOMATED) 2022-02-15 14:56:00 Vic Mcdonald [facility] POCT GLUCOSE (AUTOMATED) 2022-02-15 13:48:00 Vic Mcdonald [facility] POCT GLUCOSE (AUTOMATED) 2022-02-15 13:48:00 Vic Mcdonald [facility] POCT GLUCOSE (AUTOMATED) 2022-02-15 13:48:00 Vic Mcdonald [facility] POCT GLUCOSE (AUTOMATED) 2022-02-15 10:42:00 Vic Mcdonald [facility] POCT GLUCOSE (AUTOMATED) 2022-02-15 10:42:00 Vic Mcdonald [facility] POCT GLUCOSE (AUTOMATED) 2022-02-15 10:42:00 Vic Mcdonald Un [facility] BASIC METABOLIC PANEL 2022-02-15 10:14:00 [facility] ([facility], [facility], CL, CO2, GLUCOSE, Medica l Branch BUN, CREATININE, CA) MAGNESIUM 2022-02-15 10:14:00 [facility] MAGNESIUM 2022-02-15 10:14:00 [facility] BASIC METABOLIC PANEL 2022-02-15 10:14:00 [facility] (NA, K, CL, CO2, GLUCOSE, Medica l Branch BUN, CREATININE, CA) MAGNESIUM 2022-02-15 10:14:00 [facility] 2022-02-15 10:14:00 Naranjo, [facility] (NA, K, CL, CO2, GLUCOSE, Medica l Branch BUN, CREATININE, CA) POCT GLUCOSE (AUTOMATED) 2022-02-15 09:30:00 Vic Mcdonald [facility] POCT GLUCOSE (AUTOMATED) 2022-02-15 09:30:00 Vic Mcdonald [facility] POCT GLUCOSE (AUTOMATED) 2022-02-15 09:30:00 Vic Mcdonald [facility] POCT GLUCOSE (AUTOMATED) 2022-02-15 07:11:00 Vic Mcdonald [facility] POCT GLUCOSE (AUTOMATED) 2022-02-15 07:11:00 Vic Mcdonald [facility] POCT GLUCOSE (AUTOMATED) 2022-02-15 07:11:00 Vic Mcdonald [facility] OSMOLALITY, SERUM OR 2022-02-15 07:07:00 Vic Mcdonalder [facility] BETA HYDROXY-BUTYRATE 2022-02-15 07:07:00 Vic Mcdonald [facility]ive [facility] OSMOLALITY, SERUM OR 2022-02-15 07:07:00 Vic Mcdonalder [facility] BETA HYDROXY-BUTYRATE 2022-02-15 07:07:00 Vic Mcdonalde [facility] OSMOLALITY, SERUM OR 2022-02-15 07:07:00 Vic Mcdonalder [facility] BETA HYDROXY-BUTYRATE 2022-02-15 07:07:00 Vic Mcdonald [facility] BASIC METABOLIC PANEL 2022-02-15 07:06:00 [facility] (NA, K, CL, CO2, GLUCOSE, Medica l Branch BUN, CREATININE, CA) BASIC METABOLIC PANEL 2022-02-15 07:06:00 Vic Mcdonald [facility] (NA, K, CL, CO2, GLUCOSE, Medica l Branch BUN, CREATININE, CA) BASIC METABOLIC PANEL 2022-02-15 07:06:00 Vic Mcdonald [facility] (NA, K, CL, CO2, GLUCOSE, Medica l Branch BUN, CREATININE, CA) CT ABDOMEN PELVIS W 2022-02-15 05:28:46 Vic Mcdonald [facility] CONTRAST [facility] CT ABDOMEN PELVIS W 2022-02-15 05:28:[address] [facility] CONTRAST [facility] CT ABDOMEN PELVIS W 2022-02-15 05:28:46 Vic Mcdonald [facility] CONTRAST [facility] POCT GLUCOSE(AGE >30DAYS) 2022-02-15 05:11:00 [facility](AGE >30DAYS) 2022-02-15 05:11:00 [facility] PO[facility] GLUCOSE(AGE >30DAYS) 2022-02-15 05:11:00 [facility]) 2022-02-15 05:08:00 [facility]SE (AUTOMATED) 2022-02-15 05:08:00 [facility] PO[facility]SE (AUTOMATED) 2022-02-15 05:08:00 [facility] BLOOD C[facility] SCREEN 2022-02-15 04:31:00 Vic Mcdonald [facility] 2022-02-15 04:31:00 Vic Mcdonald [facility] GRAM POSITIVE BLOOD 2022-02-15 04:31:[address] [facility] PATHOGENS [facility] PROBE-AEROBIC BLOOD CULTURE SCREEN 2022-02-15 04:31:00 [facility] 2022-02-15 04:31:00 Vic Mcdonald [facility] GRAM POSITIVE BLOOD 2022-02-15 04:31:[address] [facility] PATHOGENS [facility] PROBE-AEROBIC BLOOD CULTURE SCREEN 2022-02-15 04:31:00 Vci Mcdonald [facility] BLOOD CULTURE WORKUP 2022-02-15 04:31:00 [facility]LO[facility] 2022-02-15 04:31:[address] [facility] PATHOGENS [facility] PROBE-AEROBIC URINALYSIS 2022-02-15 04:21:00 Vic Mcdonald [facility] URINE CULTURE 2022-02-15 04:21:00 Vic Mcdonald [facility] URINALYSIS 2022-02-15 04:21:00 Vic Mcdonald [facility] URINE CULTURE 2022-02-15 04:21:00 Vic Mcdonald [facility] URINALYSIS 2022-02-15 04:21:00 Vic Mcdonald [facility] URINE CULTURE 2022-02-15 04:21:00 Vic Mcdonald [facility] COVID-19 (ID NOW RAPID 2022-02-15 04:20:00 Harry Vic B [facility] TESTING) Medical Branch LAB ONLY COVID 2022-02-15 04:20:00 Vic Mcdonald [facility] COVID-19 (ID NOW RAPID 2022-02-15 04:20:00 Harry Vic B [facility] TESTING) Medical Branch LAB ONLY COVID 2022-02-15 04:20:00 Vic Mcdonald [facility] COVID-19 (ID NOW RAPID 2022-02-15 04:20:00 Harry Vic [facility] TESTING) Medical Branch LAB ONLY COVID 2022-02-15 04:20:00 Vic Mcdonald [facility] CBC WITH DIFF 2022-02-15 04:18:00 Vic Mcdonald [facility] PROTHROMBIN TIME / INR 2022-02-15 04:18:00 Harry Vic [facility] BASIC METABOLIC PANEL 2022-02-15 04:18:00 Vic Mcdonald [facility] (NA, K, CL, CO2, GLUCOSE, Medica l Branch BUN, CREATININE, CA) HEPATIC FUNCTION PANEL 2022-02-15 04:18:00 Vic Mcdonald [facility] ([id number]) (ALB,T.PRO,BILI [facility] T,BU/BC,ALT,AST,ALK PHOS) LIPASE 2022-02-15 04:18:00 Vic Mcdonald [facility] ACUTE CARE VENOUS BLOOD 2022-02-15 04:18:00 Vic Mcdonald [facility] GAS [facility] LACTIC ACID WHOLE BLOOD 2022-02-15 04:18:00 Vic Mcdonald [facility] MAGNESIUM 2022-02-15 04:18:00 Vic Mcdonald [facility] PHOSPHORUS 2022-02-15 04:18:00 [place] [facility] GLYCOSYLATED HEMOGLOBIN 2022-02-15 04:18:00 Vic Mcdonald B [facility] ([facility]) [facility] PHOSPHORUS 2022-02-15 04:18:00 [place] [facility] LIPASE 2022-02-15 04:18:00 [place] [facility] MAGNESIUM 2022-02-15 04:18:00 Harry, Vic B [facility] HEPATIC FUNCTION PANEL 2022-02-15 04:18:00 [place], [facility] ([id number]) (ALB,T.PRO,[facility] T,BU/BC,ALT,AST,ALK PHOS) BASIC METABOLIC PANEL 2022-02-15 04:18:00 Vic Mcdonald [facility] (NA, K, CL, CO2, GLUCOSE, Medica l Branch BUN, CREATININE, CA) ACUTE CARE VENOUS BLOOD 2022-02-15 04:18:00 [place] [facility] GAS [facility] CBC WITH DIFF 2022-02-15 04:18:00 Vic Mcdonald [facility] GLYCOSYLATED HEMOGLOBIN 2022-02-15 04:18:00 Harry Vic [facility] ([facility]) [facility] PROTHROMBIN TIME / INR 2022-02-15 04:18:00 Harry Vic [facility] LACTIC ACID WHOLE BLOOD 2022-02-15 04:18:00 Vine GroveVic taylor [facility] PHOSPHORUS 2022-02-15 04:18:00 HarryVic [facility] LIPASE 2022-02-15 04:18:00 HarryVic [facility] MAGNESIUM 2022-02-15 04:18:00 Vine GroveVic B [facility] HEPATIC FUNCTION PANEL 2022-02-15 04:18:00 Harry [facility] ([id number]) (ALB,T.PRO,[facility] T,BU/BC,ALT,AST,ALK PHOS) BASIC METABOLIC PANEL 2022-02-15 04:18:00 Vic Mcdonald [facility] (NA, K, CL, CO2, GLUCOSE, Medica l Branch BUN, CREATININE, CA) ACUTE CARE VENOUS BLOOD 2022-02-15 04:18:00 Vic Mcdonald Uni versity [facility] CBC WITH DIFF 2022-02-15 04:18:00 Vic Mcdonald [facility] GLYCOSYLATED HEMOGLOBIN 2022-02-15 04:18:00 [facility] PROTHROMBIN TIME / INR 2022-02-15 04:18:00 Vic Mcdonald [facility] LACTIC ACID WHOLE BLOOD 2022-02-15 04:18:00 Vic Mcdonald Uni versity of [facility] EMERGENCY DEPARTMENT 2022-02-14 05:01:00 Doctor Unassigned, No [facility] HOSPITAL ADMISSION 2022-02-14 05:01:00 Doctor Unassigned, No Uni versity of [facility] EMERGENCY DEPARTMENT 2022-02-14 05:01:00 Doctor Unassigned, No [facility] of [facility] HOSPITAL ADMISSION 2022-02-14 05:01:00 Doctor Unassigned, No Uni versity of [facility] EMERGENCY DEPARTMENT 2022-02-14 05:01:00 Doctor Unassigned, No [facility] HOSPITAL ADMISSION 2022-02-14 05:01:00 Doctor Unassigned, No Uni versity of [facility] POCT GLUCOSE (AUTOMATED) 2022-02-10 19:34:00 Edkeri, Farzady Uni versity of [facility] POCT GLUCOSE (AUTOMATED) 2022-02-10 19:34:00 Edionwe, [facility] Uni versity of [facility] POCT GLUCOSE (AUTOMATED) 2022-02-10 16:39:00 Edioncourt, [facility] Uni versity of [facility] POCT GLUCOSE (AUTOMATED) 2022-02-10 16:39:00 EdKaylee saavedra Uni versity of [facility] BASIC METABOLIC PANEL 2022-02-10 09:13:00 Kendall Connolly [facility] (NA, K, CL, CO2, GLUCOSE, Medica l Branch BUN, CREATININE, CA) BASIC METABOLIC PANEL 2022-02-10 09:13:00 [facility] (NA, K, CL, CO2, GLUCOSE, Medica l Branch BUN, CREATININE, CA) POCT GLUCOSE (AUTOMATED) 2022-02-10 01:45:00 Edkeri Nimble TVlizet [employer] versity [facility] POCT GLUCOSE (AUTOMATED) 2022-02-10 01:45:00 Edionwe, Nimble TVlizet [employer] versity [facility] POCT GLUCOSE (AUTOMATED) 2022-02-09 21:36:00 Edionwe, [employer] versity [facility] POCT GLUCOSE (AUTOMATED) 2022-02-09 21:36:00 Edioncourt, Nimble TVlizet [facility] [employer] versity [facility] POCT GLUCOSE (AUTOMATED) 2022-02-09 16:45:00 Edkeri Nimble TVlizet [facility] POCT GLUCOSE (AUTOMATED) 2022-02-09 16:45:00 Kosta Farzadlizet [facility] PHOSPHORUS 2022-02-09 13:17:00 Cathleen [facility] MAGNESIUM 2022-02-09 13:17:00 Cathleen [facility] BASIC METABOLIC PANEL 2022-02-09 13:17:00 Cathleen [facility] (NA, K, CL, CO2, GLUCOSE, Medica l Branch BUN, CREATININE, CA) BASIC METABOLIC PANEL 2022-02-09 13:17:00 [facility] (NA, K, CL, CO2, GLUCOSE, Medica l Branch BUN, CREATININE, CA) MAGNESIUM 2022-02-09 13:17:00 Cathleen [facility] PHOSPHORUS 2022-02-09 13:17:00 [facility] PO[facility]UCOSE (AUTOMATED) 2022-02-09 12:42:00 Edkeri Nimble TVlizet [employer] versity [facility] POCT GLUCOSE (AUTOMATED) 2022-02-09 12:42:00 Edtutuwe Equ[employer] versity [facility] POCT GLUCOSE (AUTOMATED) 2022-02-09 01:08:00 Kosta Kaylee Uni versity of [facility] POCT GLUCOSE (AUTOMATED) 2022-02-09 01:08:00 Farzad Arguetalizet Aguilar versity of [facility] URINALYSIS 2022-02-08 22:52:00 [facility]URE 2022-02-08 22:52:00 Cathleen [facility] URINALYSIS 2022-02-08 22:52:00 Cathleen [facility] URINE CULTURE 2022-02-08 22:52:00 Cathleen [facility] POCT GLUCOSE (AUTOMATED) 2022-02-08 21:40:00 Kosta Kaylee Uni versity of [facility] POCT GLUCOSE (AUTOMATED) 2022-02-08 21:40:00 Kosta Kaylee Uni versity of [facility] POCT GLUCOSE (AUTOMATED) 2022-02-08 16:02:00 Kosta Kaylee Uni versity of [facility] POCT GLUCOSE (AUTOMATED) 2022-02-08 16:02:00 Kosta Farzadlizet Uni versity of [facility] POCT GLUCOSE (AUTOMATED) 2022-02-08 13:08:00 Kosta Farzady Uni versity of [facility] POCT GLUCOSE (AUTOMATED) 2022-02-08 13:08:00 Kosta Kaylee Uni versity of [facility] POCT GLUCOSE (AUTOMATED) 2022-02-08 10:58:00 Kosta Kaylee Uni versity of [facility] POCT GLUCOSE (AUTOMATED) 2022-02-08 10:58:00 Kosta Farzadlizet Uni versity of [facility] LACTIC ACID WHOLE BLOOD 2022-02-08 09:47:00 Severino Beth [facility] LACTIC ACID WHOLE BLOOD 2022-02-08 09:47:00 Severino Beth [facility] PHOSPHORUS 2022-02-08 09:46:00 Severino Beth [facility] MAGNESIUM 2022-02-08 09:46:00 Abdullah, [facility] COMP. METABOLIC PANEL 2022-02-08 09:46:00 Severino Beth [facility] ([id number]) [facility] CBC WITH DIFF 2022-02-08 09:46:00 Kirit [facility] CBC WITH DIFF 2022-02-08 09:46:00 [facility]OLIC PANEL 2022-02-08 09:46:00 Severino Beth [facility] ([id number]) Medical Branch MAGNESIUM 2022-02-08 09:46:00 Kirit [facility] PHOSPHORUS 2022-02-08 09:46:00 Kirit [facility] POCT GLUCOSE (AUTOMATED) 2022-02-08 07:47:00 Kaylee Argueta [facility] POCT GLUCOSE (AUTOMATED) 2022-02-08 07:47:00 Kaylee Argueta [facility] POCT GLUCOSE (AUTOMATED) 2022-02-08 03:40:00 EdKaylee saavedra [facility] POCT GLUCOSE (AUTOMATED) 2022-02-08 03:40:00 Kaylee Argueta [facility] POCT GLUCOSE (AUTOMATED) 2022-02-08 00:43:00 Kaylee Argueta [facility] POCT GLUCOSE (AUTOMATED) 2022-02-08 00:43:00 Kaylee Argueta [facility] BASIC METABOLIC PANEL 2022-02-07 23:29:00 Severino Beth [facility] (NA, K, CL, CO2, GLUCOSE, Medica l Branch BUN, CREATININE, CA) BASIC METABOLIC PANEL 2022-02-07 23:29:00 Severino Beth [facility] (NA, K, CL, CO2, GLUCOSE, Medica l Branch BUN, CREATININE, CA) POCT GLUCOSE (AUTOMATED) 2022-02-07 22:28:00 EdKaylee saavedra [facility] POCT GLUCOSE (AUTOMATED) 2022-02-07 22:28:00 Kaylee Argueta [facility] US RETROPERITONEAL 2022-02-07 22:27:00 Severino Beth [facility] COMPLETE [facility] US RETROPERITONEAL 2022-02-07 22:27:00 Severino Beth [facility] COMPLETE [facility] CT ABDOMEN PELVIS WO 2022-02-07 20:05:[address] [facility] CONTRAST [facility] CT ABDOMEN PELVIS WO 2022-02-07 20:05:[address] [facility] CONTRAST [facility] POCT GLUCOSE (AUTOMATED) 2022-02-07 19:07:00 Kosta Farzadlizet [facility] POCT GLUCOSE (AUTOMATED) 2022-02-07 19:07:00 Kosta Farzadlizet [facility] POCT GLUCOSE (AUTOMATED) 2022-02-07 18:00:00 Kosta Farzadlizet [facility] POCT GLUCOSE (AUTOMATED) 2022-02-07 18:00:00 Kaylee Argueta [facility] PROTEIN CREAT RATIO URINE 2022-02-07 17:45:00 Augusta Hendricks [facility] RANDOM [facility] PROTEIN CREAT RATIO URINE 2022-02-07 17:45:00 Augusta Hendricks [facility] POCT GLUCOSE (AUTOMATED) 2022-02-07 17:25:00 Kosta Farzadlizet [facility] POCT GLUCOSE (AUTOMATED) 2022-02-07 17:25:00 Kaylee Argueta [facility] LACTIC ACID WHOLE BLOOD 2022-02-07 17:23:00 Severino Beth [facility] LACTIC ACID WHOLE BLOOD 2022-02-07 17:23:00 Severino Beth [facility] BASIC METABOLIC PANEL 2022-02-07 17:22:00 Severino Beth [facility] (NA, K, CL, CO2, GLUCOSE, Medica l Branch BUN, CREATININE, CA) BASIC METABOLIC PANEL 2022-02-07 17:22:00 Severino Beth [facility] (NA, K, CL, CO2, GLUCOSE, Medica l Branch BUN, CREATININE, CA) POCT GLUCOSE (AUTOMATED) 2022-02-07 16:07:00 EdkeriKaylee [facility] POCT GLUCOSE (AUTOMATED) 2022-02-07 16:07:00 EdkeriKaylee [facility] POCT GLUCOSE (AUTOMATED) 2022-02-07 15:04:00 Edioncourt Kaylee [facility] POCT GLUCOSE (AUTOMATED) 2022-02-07 15:04:00 Edioncourt Kaylee [facility] POCT GLUCOSE (AUTOMATED) 2022-02-07 13:57:00 Edioncourt Kaylee [facility] POCT GLUCOSE (AUTOMATED) 2022-02-07 13:57:00 Kosta Kaylee [facility] URINE CULTURE 2022-02-07 13:50:00 [facility] URINE CULTURE 2022-02-07 13:50:00 [facility] LACTIC ACID WHOLE BLOOD 2022-02-07 12:57:00 Edkeri [facility] LACTIC ACID WHOLE BLOOD 2022-02-07 12:57:00 Edkeri Trulia [facility] POCT GLUCOSE (AUTOMATED) 2022-02-07 12:55:00 Edkeri Kaylee [facility] POCT GLUCOSE (AUTOMATED) 2022-02-07 12:55:00 Kosta Kaylee [facility] BASIC METABOLIC PANEL 2022-02-07 12:51:[address] [facility] (NA, K, CL, CO2, GLUCOSE, Medica l Branch BUN, CREATININE, CA) BASIC METABOLIC PANEL 2022-02-07 12:51:[address] [facility] (NA, K, CL, CO2, GLUCOSE, Medica l Branch BUN, CREATININE, CA) MRSA / MSSA SCREEN BY 2022-02-07 10:37:00 Edionwe, [facility] MRSA / MSSA SCREEN BY 2022-02-07 10:37:00 Edioncourt, [facility] PCR, NARES [facility] URINE DRUG (IMMUNOASSAY) 2022-02-07 10:36:00 Kosta [facility] DRUG [facility] SCREEN LACTIC ACID WHOLE BLOOD 2022-02-07 10:36:00 Kosta [facility] URINE DRUG (LCMSMS) - 2022-02-07 10:36:[address] [facility] SYNTHETIC OPIATES PANEL [facility] LACTIC ACID WHOLE BLOOD 2022-02-07 10:36:00 Kosta [facility] URINE DRUG (IMMUNOASSAY) 2022-02-07 10:36:00 Kosta [facility] SCREEN URINE DRUG (LCMSMS) - 2022-02-07 [facility]:36[facility] Medical Branch PHOSPHORUS 2022-02-07 08:58:00 Kosta [facility] MAGNESIUM 2022-02-07 08:58:00 [facility] HYDROXY-BUTYRATE 2022-02-07 08:58:00 Carlene Alcantara [facility] BASIC METABOLIC PANEL 2022-02-07 08:58:00 [facility] (NA, K, CL, CO2, GLUCOSE, Medica l Branch BUN, CREATININE, CA) BETA HYDROXY-BUTYRATE 2022-02-07 08:58:00 Carlene Alcantara [facility] BASIC METABOLIC PANEL 2022-02-07 08:58:00 [facility] (NA, K, CL, CO2, GLUCOSE, Medica l Branch BUN, CREATININE, CA) MAGNESIUM 2022-02-07 08:58:00 [facility]US 2022-02-07 08:58:00 [facility] CBC WITH DIFF 2022-02-07 06:40:00 [facility] LACTIC ACID WHOLE BLOOD 2022-02-07 06:40:00 Edionwe, [facility] LACTIC ACID WHOLE BLOOD 2022-02-07 06:40:00 Kosta [facility] CBC WITH DIFF 2022-02-07 06:40:00 Kosta [facility] POCT GLUCOSE (AUTOMATED) 2022-02-07 05:14:00 Kosta [facility] POCT GLUCOSE (AUTOMATED) 2022-02-07 05:14:00 Kosta [facility] ED BLADDER 2022-02-07 04:35:00 Carlene Alcantara [facility] ED BLADDER 2022-02-07 04:35:00 Carlene Alcantara [facility] POCT GLUCOSE (AUTOMATED) 2022-02-07 03:51:00 Kosta [facility] POCT GLUCOSE (AUTOMATED) 2022-02-07 03:51:00 [facility] XR CHEST 1 VW 2022-02-07 02:43:07 Carlene Alcantara [facility] XR ANKLE 3+ VW LEFT 2022-02-07 02:43:07 Carlene Alcantara [facility] XR CHEST 1 VW 2022-02-07 02:43:07 Carlene Alcantara [facility] XR ANKLE 3+ VW LEFT 2022-02-07 02:43:07 Carlene Alcantara [facility] LACTIC ACID WHOLE BLOOD 2022-02-07 02:30:00 Carlene Alcantara [facility] LACTIC ACID WHOLE BLOOD 2022-02-07 02:30:00 Carlene Alcantara [facility] URINALYSIS 2022-02-07 01:38:00 Carlene Alcantara [facility] URINALYSIS 2022-02-07 01:38:00 Carlene Alcantara [facility] POCT GLUCOSE (AUTOMATED) 2022-02-07 01:36:00 Carlene Alcantara [facility] POCT GLUCOSE (AUTOMATED) 2022-02-07 01:36:00 Carlene Alcantara [facility] versity [facility] PHOSPHORUS 2022-02-07 01:24:00 Carlene Alcantara [facility] LIPASE 2022-02-07 01:24:00 Carlene Alcantara [facility] MAGNESIUM 2022-02-07 01:24:00 Carlene Alcantara [facility] TROPONIN I 2022-02-07 01:24:00 Carlene Alcantara [facility] COMP. METABOLIC PANEL 2022-02-07 01:24:00 Carlene Alcantara [facility] ([id number]) [facility] SALICYLATE 2022-02-07 01:24:00 Carlene Alcantara [facility] ETHANOL 2022-02-07 01:24:00 Carlene Alcantara [facility] COMP. METABOLIC PANEL 2022-02-07 01:24:00 Carlene Alcantara [facility] ([id number]) [facility] LIPASE 2022-02-07 01:24:00 Carlene Alcantara [facility] TROPONIN I 2022-02-07 01:24:00 Carlene Alcantara [facility] ETHANOL 2022-02-07 01:24:00 Carlene Alcantara [facility] ACETAMINOPHEN 2022-02-07 01:24:00 Carlene Alcantara [facility] PHOSPHORUS 2022-02-07 01:24:00 Carlene Alcantara [facility] MAGNESIUM 2022-02-07 01:24:00 Carlene Alcantara [facility] CT LUMBAR SPINE WO 2022-02-07 01:16:52 Carlene Alcantara [facility] CONTRAST [facility] CT THORACIC SPINE WO 2022-02-07 01:16:[address] [facility] CONTRAST [facility] CT THORACIC SPINE WO 2022-02-07 01:16:[address] [facility] CONTRAST [facility] CT LUMBAR SPINE WO 2022-02-07 01:16:52 Carlene Alcantara [facility] [place] CONTRAST Medical Branch CT CERVICAL SPINE WO 2022-02-07 01:16:24 Carlene Alcantara [facility] ity [facility] CONTRAST Medical Branch CT HEAD WO CONTRAST 2022-02-07 01:16:24 Carl[facility] Medical [place] CT HEAD WO CONTRAST 2022-02-07 01:16:24 Carlene Alcantara [facility] CT CERVICAL SPINE WO 2022-02-07 01:16:[address] [facility] CONTRAST Medical Branch BLOOD CULTURE SCREEN 2022-02-07 00:41:[address] [facility] [place] BLOOD CULTURE SCREEN 2022-02-07 00:41:00 Carlene Alcantara [facility] COVID-19 (ID NOW RAPID 2022-02-07 00:30:00 Carlene Alcantara [facility] TESTING) Medical Branch LAB ONLY COVID 2022-02-07 00:30:00 Carlene Alcantara [facility] INTERPRETATION [facility] COVID-19 (ID NOW RAPID 2022-02-07 00:30:00 Carlene Alcantara [facility] TESTING) Medical Branch LAB ONLY COVID 2022-02-07 00:30:00 Carlene Alcantara [facility] POCT GLUCOSE (AUTOMATED) 2022-02-07 00:05:00 Carlene Alcantara [facility] POCT GLUCOSE (AUTOMATED) 2022-02-07 00:05:00 Carlene Alcantara [facility] ACUTE CARE VENOUS BLOOD 2022-02-06 23:53:00 Carlene Alcantara [facility] ACUTE CARE VENOUS BLOOD 2022-02-06 23:53:00 Carlene Alcantara [facility] CBC WITH DIFF 2022-02-06 23:48:00 Carlene Alcantara [facility] CBC WITH DIFF 2022-02-06 23:48:00 Carlene Alcantara [facility] LACTIC ACID WHOLE BLOOD 2022-02-06 23:47:00 Carlene Alcantara [facility] LACTIC ACID WHOLE BLOOD 2022-02-06 23:47:00 Carlene Alcantara [facility] HB ECG ROUTINE & RHYTHM 2022-02-06 23:31:40 Carlene Alcantara [facility]OUT[facility] & RHYTHM 2022-02-06 23:31:40 Carlene Alcantara [facility] EMERGENCY DEPARTMENT 2022-02-06 05:01:00 Doctor Unassigned, No [facility] [place] DOCUMENTS [facility] Medical [place] EMERGENCY DEPARTMENT 2022-02-06 05:01:00 Doctor Unassigned, No [facility] [place] DOCUMENTS [facility] HOSPITAL ADMISSION 2022-02-06 05:01:00 Doctor Unassigned, No Uni versity of [facility] CT FEMUR LEFT W CONTRAST 2022-01-27 02:34:07 Jonathan Sanford Uni versity [facility] CT FEMUR LEFT W CONTRAST 2022-01-27 02:34:07 Jonathan [facility] PO[facility] GLUCOSE(AGE >30DAYS) 2022-01-27 01:30:00 Jonathan [facility]ford [facility] POCT GLUCOSE(AGE >30DAYS) 2022-01-27 01:30:00 Jonathan [facility]ford [facility] POCT GLUCOSE (AUTOMATED) 2022-01-27 01:28:00 Randall Sands [facility] POCT GLUCOSE (AUTOMATED) 2022-01-27 01:28:00 Randall Sands [facility] POCT GLUCOSE (AUTOMATED) 2022-01-27 00:38:00 Randall Sands [facility] POCT GLUCOSE (AUTOMATED) 2022-01-27 00:38:00 Randall Sands [facility] URINALYSIS 2022-01-26 23:58:00 Randall Sands [facility] URINALYSIS 2022-01-26 23:58:00 Randall Sands [facility] POCT GLUCOSE (AUTOMATED) 2022-01-26 23:26:00 Randall Sands [facility] POCT GLUCOSE (AUTOMATED) 2022-01-26 23:26:00 Randall Sands [facility] [place] BASIC METABOLIC PANEL 2022-01-26 22:24:00 Randall Sands [facility] (NA, K, CL, CO2, GLUCOSE, Medica l Branch BUN, CREATININE, CA) CBC WITH DIFF 2022-01-26 22:24:00 Shavon [facility] Medical Branch COVID-19 (ID NOW RAPID 2022-01-26 22:24:00 Randall Sands [facility] TESTING) Medical Branch CBC WITH DIFF 2022-01-26 22:24:00 Shavon [facility] BASIC METABOLIC PANEL 2022-01-26 22:24:00 Shavon [facility] (NA, K, CL, CO2, GLUCOSE, Medica l Branch BUN, CREATININE, CA) COVID-19 (ID NOW RAPID 2022-01-26 22:24:00 Randall Sands [facility] TESTING) Medical Branch LAB ONLY COVID 2022-01-26 22:24:00 Shavon [facility] INTERPRETATION [facility] EMERGENCY SERVICES 2022-01-26 05:01:00 Doctor Unassigned, No [facility] AGREEMENTS AND Name Medical Branch AUTHORIZATIONS EMERGENCY DEPARTMENT 2022-01-26 05:01:00 Doctor Unassigned, No [facility] DOCUMENTS Name Medical Branch LIPASE 2022-01-17 10:37:00 Jennifer Olivera [facility] COMP. METABOLIC PANEL 2022-01-17 10:37:00 Jennifer Olivera [facility] ([id number]) Medical Branch CBC WITH DIFF 2022-01-17 10:37:00 Jennifer Olivera [facility] AC PANEL 21 + LACTIC ACID 2022-01-17 10:37:00 Jennifer Olivera [facility] CBC WITH DIFF 2022-01-17 10:37:00 Jennifer Olivera [facility] COMP. METABOLIC PANEL 2022-01-17 10:37:00 Jennifer Olivera [facility] ([id number]) Medical Branch AC PANEL 21 + LACTIC ACID 2022-01-17 10:37:00 [facility] 2022-01-17 10:37:00 Jennifer Olivera o f [facility] URINALYSIS 2022-01-17 10:24:00 Jennifer Olivera [place] [facility] URINALYSIS 2022-01-17 10:24:00 Jennifer Olivera o f [facility] EMERGENCY SERVICES 2022-01-17 05:01:00 Doctor Unassigned, No [facility] [place] AGREEMENTS AND Name Medical Branch AUTHORIZATIONS POCT GLUCOSE (AUTOMATED) 2022-01-12 22:53:00 Jennifer Olivera [facility] [place] [facility] POCT GLUCOSE (AUTOMATED) 2022-01-12 22:53:00 Jennifer Olivera Uni versity of [facility] POCT GLUCOSE (AUTOMATED) 2022-01-12 12:17:00 Jennifer Olivera Uni versity of [facility] POCT GLUCOSE (AUTOMATED) 2022-01-12 12:17:00 Jennifer Olivera Uni versity of [facility] POCT GLUCOSE (AUTOMATED) 2022-01-12 04:47:00 Jennifer Olivera Uni versity of [facility] POCT GLUCOSE (AUTOMATED) 2022-01-12 04:47:00 Jennifer Olivera Uni versity of [facility] POCT GLUCOSE (AUTOMATED) 2022-01-12 01:43:00 Jennifer Olivera [facility] [place] [facility] POCT GLUCOSE (AUTOMATED) 2022-01-12 01:43:00 Jennifer Olivera Uni versity of [facility] POCT GLUCOSE (AUTOMATED) 2022-01-11 21:51:00 Jennifer Olivera Uni versity of [facility] POCT GLUCOSE (AUTOMATED) 2022-01-11 21:51:00 Jennifer Olivera [facility] [place] [facility] POCT GLUCOSE (AUTOMATED) 2022-01-11 17:04:00 Jennifer Olivera [facility] [place] [facility] POCT GLUCOSE (AUTOMATED) 2022-01-11 17:04:00 Jennifer Olivera Uni versity of [facility] POCT GLUCOSE (AUTOMATED) 2022-01-11 13:09:00 Jennifer Olivera Uni versity of [facility] POCT GLUCOSE (AUTOMATED) 2022-01-11 13:09:00 Jennifer Olivera Uni versity of [facility] POCT GLUCOSE (AUTOMATED) 2022-01-11 08:32:00 Jennifer Olivera versity of [facility] POCT GLUCOSE (AUTOMATED) 2022-01-11 08:32:00 Jennifer Olivera versity of [facility] POCT GLUCOSE (AUTOMATED) 2022-01-11 05:45:00 Jennifer Olivera versity of [facility] POCT GLUCOSE (AUTOMATED) 2022-01-11 05:45:00 Jennifer Olivera versity of [facility] POCT GLUCOSE (AUTOMATED) 2022-01-11 02:43:00 Jennifer Olivera versity of [facility] POCT GLUCOSE (AUTOMATED) 2022-01-11 02:43:00 Jennifer Olivera versity of [facility] POCT GLUCOSE (AUTOMATED) 2022-01-10 22:37:00 Jennifer Olivera versity of [facility] POCT GLUCOSE (AUTOMATED) 2022-01-10 22:37:00 Jennifer Olivera versity of [facility] POCT GLUCOSE (AUTOMATED) 2022-01-10 18:04:00 Jennifer Olivera versity of [facility] POCT GLUCOSE (AUTOMATED) 2022-01-10 18:04:00 Jennifer Olivera versity of [facility] BASIC METABOLIC PANEL 2022-01-10 14:22:00 [facility] (NA, K, CL, CO2, GLUCOSE, Medica l Branch BUN, CREATININE, CA) BASIC METABOLIC PANEL 2022-01-10 14:22:00 [facility] (NA, K, CL, CO2, GLUCOSE, Medica l Branch BUN, CREATININE, CA) POCT GLUCOSE (AUTOMATED) 2022-01-10 13:30:00 Jennifer Olivera versity of [facility] POCT GLUCOSE (AUTOMATED) 2022-01-10 13:30:00 Jennifer Olivera versity of [facility] CRITICAL CARE 2022-01-10 11:11:00 Jennifer Olivera [facility] CRITICAL CARE 2022-01-10 11:11:00 Jennifer Oilvera [facility] POCT GLUCOSE (AUTOMATED) 2022-01-10 11:01:00 Jennifer Olivera versity of [facility] POCT GLUCOSE (AUTOMATED) 2022-01-10 11:01:00 Jennifer Olivera [facility] POCT GLUCOSE (AUTOMATED) 2022-01-10 07:19:00 Jennifer Olivera [facility] POCT GLUCOSE (AUTOMATED) 2022-01-10 07:19:00 Jennifer Olivera [facility] BASIC METABOLIC PANEL 2022-01-10 05:53:00 Jennifer Olivera [facility] (NA, K, CL, CO2, GLUCOSE, Medica l Branch BUN, CREATININE, CA) BASIC METABOLIC PANEL 2022-01-10 05:53:00 Jennifer Olivera [facility] (NA, K, CL, CO2, GLUCOSE, Medica l Branch BUN, CREATININE, CA) POCT GLUCOSE (AUTOMATED) 2022-01-10 04:41:00 Jennifer Olivera [facility] POCT GLUCOSE (AUTOMATED) 2022-01-10 04:41:00 Jennifer Olivera [facility] URINALYSIS 2022-01-10 03:59:00 Jennifer Olivera [facility] URINE CULTURE 2022-01-10 03:59:00 Jennifer Olivera [facility] URINALYSIS 2022-01-10 03:59:00 Jennifer Olivera [facility] URINE CULTURE 2022-01-10 03:59:00 Jennifer Olivera [facility] POCT GLUCOSE (AUTOMATED) 2022-01-10 03:48:00 Jennifer Olivera [facility] POCT GLUCOSE (AUTOMATED) 2022-01-10 03:48:00 Jennifer Olivera [facility] AC PANEL 21 + LACTIC ACID 2022-01-10 02:23:00 [facility] + LACTIC ACID 2022-01-10 02:23:00 Jennifer Olivera [facility] LIPASE 2022-01-10 02:22:00 Jennifer Olivera [facility] COMP. METABOLIC PANEL 2022-01-10 02:22:00 Jennifer Olivera [facility] ([id number]) Medical Branch CBC WITH DIFF 2022-01-10 02:22:00 Olivera, [facility] COVID-19 (ID NOW RAPID 2022-01-10 02:22:00 Jennifer Olivera [facility] TESTING) Medical Branch LAB ONLY COVID 2022-01-10 02:22:00 Jennifer Olivera [facility] Medical Branch CBC WITH DIFF 2022-01-10 02:22:00 Jarod [facility] COMP. METABOLIC PANEL 2022-01-10 02:22:00 Jennifer Olivera [facility] ([id number]) Medical Branch LIPASE 2022-01-10 02:22:00 Jarod [facility] COVID-19 (ID NOW RAPID 2022-01-10 02:22:00 Jarod Jennifer [facility] TESTING) Medical Branch LAB ONLY COVID 2022-01-10 02:22:00 Jennifer Olivera [facility] HOSPITAL ADMISSION 2022-01-09 05:01:00 Doctor Unassigned, No Uni versity of [facility] EMERGENCY DEPARTMENT 2022-01-09 05:01:00 Doctor Unassigned, No U niversity of [facility] HOSPITAL ADMISSION 2022-01-09 05:01:00 Doctor Unassigned, No Uni versity of [facility] POCT GLUCOSE (AUTOMATED) 2022-01-06 17:03:00 Negar Guardado Uni versity [facility] POCT GLUCOSE (AUTOMATED) 2022-01-06 16:09:00 Negar [facility] 2022-01-06 09:01:00 Carlene Weaver [facility] ([id number]) (ALB,T.PRO,BILI Medical Branch T,BU/BC,ALT,AST,ALK PHOS) BASIC METABOLIC PANEL 2022-01-06 09:01:00 [facility] ([facility], K, CL, CO2, GLUCOSE, Medica l Branch BUN, CREATININE, CA) CBC WITH DIFF 2022-01-06 09:01:00 Carlene Weaver [facility] CBC WITH DIFF 2022-01-06 09:01:00 Carlene Weaver [facility] BASIC METABOLIC PANEL 2022-01-06 09:01:00 Carlene Weaver [facility] (NA, K, CL, CO2, GLUCOSE, Medica l Branch BUN, CREATININE, CA) HEPATIC FUNCTION PANEL 2022-01-06 09:01:00 Carleen Weaver [facility] ([id number]) (ALB,T.PRO,BILI Medical Branch T,BU/BC,ALT,AST,ALK PHOS) POCT GLUCOSE (AUTOMATED) 2022-01-06 08:58:00 Negar Guardado [facility] POCT GLUCOSE (AUTOMATED) 2022-01-06 06:53:00 Negar Guardado [facility] POCT GLUCOSE (AUTOMATED) 2022-01-06 05:31:00 Negar Guardado [facility] POCT GLUCOSE (AUTOMATED) 2022-01-06 02:16:00 Negar Guardado [facility] POCT GLUCOSE (AUTOMATED) 2022-01-05 21:50:00 Negar Guardado [facility] BASIC METABOLIC PANEL 2022-01-05 20:45:00 [facility] (NA, K, CL, CO2, GLUCOSE, Medica l Branch BUN, CREATININE, CA) CBC WITH DIFF 2022-01-05 20:45:00 [facility] BASIC METABOLIC PANEL 2022-01-05 20:45:00 [facility] (NA, K, CL, CO2, GLUCOSE, Medica l Branch BUN, CREATININE, CA) CBC WITH DIFF 2022-01-05 20:45:00 [facility] POCT GLUCOSE (AUTOMATED) 2022-01-05 16:44:00 Negar Guardado [facility] POCT GLUCOSE (AUTOMATED) 2022-01-05 13:41:00 Negar Guardado [facility] URINE CULTURE 2022-01-05 06:41:00 Vadim Ferreira [facility] URINE CULTURE 2022-01-05 06:41:00 Vadim Ferreira [facility] POCT GLUCOSE (AUTOMATED) 2022-01-05 06:10:00 [facility] 2022-01-05 05:08:[address] [facility] CONTRAST [facility] Branch CT ABDOMEN PELVIS W 2022-01-05 05:08:[address] [facility] CONTRAST [facility] URINALYSIS 2022-01-05 04:34:00 Vadim Ferreira [facility] COVID-19 (ID NOW RAPID 2022-01-05 04:34:00 Vadim Ferreira [facility] TESTING) Medical Branch LAB ONLY COVID 2022-01-05 04:34:00 Vadim Ferreira [facility] INTERPRETATION [facility] URINALYSIS 2022-01-05 04:34:00 Vadim Ferreira [facility] COVID-19 (ID NOW RAPID 2022-01-05 04:34:00 Vadim Ferreira [facility] TESTING) Medical Branch LAB ONLY COVID 2022-01-05 04:34:00 aVdim Ferreira [facility] INTERPRETATION [facility] LIPASE 2022-01-05 03:57:00 Vadim Ferreira [facility] COMP. METABOLIC PANEL 2022-01-05 03:57:00 Vadim Ferreira [facility] ([id number]) [facility] CBC WITH DIFF 2022-01-05 03:57:00 Vadim Ferreira [facility] CBC WITH DIFF 2022-01-05 03:57:00 Vadim Ferreira [facility] COMP. METABOLIC PANEL 2022-01-05 03:57:00 Vadim Ferreira [facility] ([id number]) [facility] LIPASE 2022-01-05 03:57:00 Vadim Ferreira [facility] EMERGENCY DEPARTMENT 2022-01-04 05:01:00 [facility] 2022-01-04 05:01:00 [facility]assigned, No [facility]) 2021-12-22 21:48:00 [facility]OMATED) 2021-12-22 17:03:00 Edioncourt [facility] Uni versity of [facility] POCT GLUCOSE (AUTOMATED) 2021-12-22 17:03:00 Edkeri [facility] of [place] [facility] POCT GLUCOSE (AUTOMATED) 2021-12-22 12:44:00 Edkeri Farzady Uni versity of [facility] POCT GLUCOSE (AUTOMATED) 2021-12-22 12:44:00 EdionKaylee yun Uni versity of [facility] BASIC METABOLIC PANEL 2021-12-22 10:29:00 Geo Negar [facility] (NA, K, CL, CO2, GLUCOSE, Medica l Branch BUN, CREATININE, CA) CBC WITH DIFF 2021-12-22 10:29:00 Geo [facility] MAGNESIUM 2021-12-22 10:29:[facility] 2021-12-22 10:29:00 Geo [facility] BASIC METABOLIC PANEL 2021-12-22 10:29[facility], CL, CO2, GLUCOSE, Medica l Branch BUN, CREATININE, CA) CBC WITH DIFF 2021-12-22 10:29:00 [facility]OMATED) 2021-12-22 10:28:00 Kosta Farzadlizet Uni versity of [facility] POCT GLUCOSE (AUTOMATED) 2021-12-22 10:28:00 EdKaylee saavedra Uni versity of [facility] POCT GLUCOSE (AUTOMATED) 2021-12-22 05:33:00 Edioncourt [facility] Uni versity of [facility] POCT GLUCOSE (AUTOMATED) 2021-12-22 05:33:00 Edionwe [facility] Uni versity of [facility] POCT GLUCOSE (AUTOMATED) 2021-12-22 04:37:00 Edionwe, [facility] Uni versity of [facility] POCT GLUCOSE (AUTOMATED) 2021-12-22 04:37:00 Edionwe [facility] Uni versity of [facility] POCT GLUCOSE (AUTOMATED) 2021-12-22 02:29:00 Edkeri [facility] Uni versity of [facility] POCT GLUCOSE (AUTOMATED) 2021-12-22 02:29:00 Edionwe, Farzady Uni versity of [facility] POCT GLUCOSE (AUTOMATED) 2021-12-22 00:52:00 Edionwe [facility] Uni versity of [facility] POCT GLUCOSE (AUTOMATED) 2021-12-22 00:52:00 EdionweFarzady Uni versity of [facility] POCT GLUCOSE (AUTOMATED) 2021-12-21 21:52:00 Edionwe, Farzady Uni versity of [facility] POCT GLUCOSE (AUTOMATED) 2021-12-21 21:52:00 Edionwe, Farzady Uni versity of [facility] POCT GLUCOSE (AUTOMATED) 2021-12-21 16:42:00 EdioncourtKaylee Uni versity of [facility] POCT GLUCOSE (AUTOMATED) 2021-12-21 16:42:00 EdkeriKalyee Uni versity of [facility] XR CHEST 1 VW 2021-12-21 14:05:00 [place] [facility] XR SKULL <4 VW 2021-12-21 14:05:00 [place] [facility] XR ABDOMEN 2 VW 2021-12-21 14:05:00 [place] [facility] XR ABDOMEN 2 VW 2021-12-21 14:05:00 [place] [facility] XR CHEST 1 VW 2021-12-21 14:05:00 [place] [facility] XR SKULL <4 VW 2021-12-21 14:05:00 Geo [facility] POCT GLUCOSE (AUTOMATED) 2021-12-21 12:47:00 EdkeriKaylee Uni versity of [facility] POCT GLUCOSE (AUTOMATED) 2021-12-21 12:47:00 Edkeri, Farzady Uni versity of [facility] POCT GLUCOSE (AUTOMATED) 2021-12-21 08:59:00 Edkeri Farzady Uni versity of [facility] POCT GLUCOSE (AUTOMATED) 2021-12-21 08:59:00 Edkeri Kaylee Uni versity of [facility] GLYCOSYLATED HEMOGLOBIN 2021-12-21 08:56:00 Severino Beth [facility] (A1C) Medical Branch CBC WITH DIFF 2021-12-21 08:56:00 [facility] PANEL 2021-12-21 08:56:00 Severino Beth [facility] (NA, K, CL, CO2, GLUCOSE, Medica l Branch BUN, CREATININE, CA) MAGNESIUM 2021-12-21 08:56:00 [facility]OS[facility] 2021-12-21 08:56:00 Kirit [facility] PHOSPHORUS 2021-12-21 08:56:00 Kirit [facility] MAGNESIUM 2021-12-21 08:56:00 Kirit [facility] BASIC METABOLIC PANEL 2021-12-21 08:56:00 Severino Beth [facility] (NA, K, CL, CO2, GLUCOSE, Medica l Branch BUN, CREATININE, CA) CBC WITH DIFF 2021-12-21 08:56:00 Kirit [facility] GLYCOSYLATED HEMOGLOBIN 2021-12-21 08:56:[address] [facility] (A1C) [facility] POCT GLUCOSE (AUTOMATED) 2021-12-21 04:27:00 Kaylee Argueta Uni [facility] POCT GLUCOSE (AUTOMATED) 2021-12-21 04:27:00 Kaylee [facility] ([facility]OMATED) 2021-12-21 01:11:00 [facility]lee [facility] POCT GLUCOSE (AUTOMATED) 2021-12-21 01:11:00 EdKaylee saavedra Uni versity [facility] POCT GLUCOSE (AUTOMATED) 2021-12-20 21:02:00 Kaylee [facility]SE (AUTOMATED) 2021-12-20 21:02:00 Kaylee [facility] PO[facility]SE (AUTOMATED) 2021-12-20 16:08:00 Kaylee [facility] PO[facility] GLU[facility]SE (AUTOMATED) 2021-12-20 16:08:00 Edkeri Kaylee [facility] POCT GLUCOSE (AUTOMATED) 2021-12-20 12:39:00 [facility] POCT GLUCOSE (AUTOMATED) 2021-12-20 12:39:00 Kosta [facility] LACTIC ACID WHOLE BLOOD 2021-12-20 09:25:00 [facility]FF 2021-12-20 09:25:00 Edkeri [facility] BASIC METABOLIC PANEL 2021-12-20 09:25[facility] ([facility], [facility], CL, CO2, GLUCOSE, Medica l Branch BUN, CREATININE, CA) BASIC METABOLIC PANEL 2021-12-20 09:25:00 [facility] ([facility], K, CL, CO2, GLUCOSE, Medica l Branch BUN, CREATININE, CA) CBC WITH DIFF 2021-12-20 09:25:00 Kosta [facility] LACTIC ACID WHOLE BLOOD 2021-12-20 09:25:00 Alex [facility] POCT GLUCOSE (AUTOMATED) 2021-12-20 08:56:00 [facility]i [facility] POCT GLUCOSE (AUTOMATED) 2021-12-20 08:56:00 Kosta [facility] POCT GLUCOSE (AUTOMATED) 2021-12-20 04:51:00 Edkeri [facility] POCT GLUCOSE (AUTOMATED) 2021-12-20 04:51:00 Kosat [facility] URINALYSIS 2021-12-20 02:47:00 Alex [facility] URINALYSIS 2021-12-20 02:47:00 Alex [facility] POCT GLUCOSE (AUTOMATED) 2021-12-20 02:29:00 Mario Johnson [facility] POCT GLUCOSE (AUTOMATED) 2021-12-20 02:29:00 Mario Johnson [facility] HB ECG ROUTINE & RHYTHM 2021-12-20 00:33:38 Alex [facility] HB ECG ROUTINE & RHYTHM 2021-12-20 00:33:38 Alex [facility] URINALYSIS 2021-12-20 00:28:00 Alex [facility] URINE CULTURE 2021-12-20 00:28:00 Alex [facility] URINALYSIS 2021-12-20 00:28:00 Alex [facility] URINE CULTURE 2021-12-20 00:28:00 Alex [facility] CBC WITH DIFF 2021-12-20 00:25:00 Alex [facility] COMP. METABOLIC PANEL 2021-12-20 00:25:00 Alex [facility] ([id number]) [facility] LIPASE 2021-12-20 00:25:00 Alex [facility] LACTIC ACID WHOLE BLOOD 2021-12-20 00:25:00 Alex [facility] ACUTE CARE VENOUS BLOOD 2021-12-20 00:25:00 Alex [facility] BLOOD CULTURE SCREEN 2021-12-20 00:25:00 Mario Johnson [facility] BLOOD CULTURE SCREEN 2021-12-20 00:25:00 Alex [facility] LIPASE 2021-12-20 00:25:00 Alex [facility] COMP. METABOLIC PANEL 2021-12-20 00:25:00 Alex [facility] ([id number]) [facility] ACUTE CARE VENOUS BLOOD 2021-12-20 00:25:00 Alex [facility] CBC WITH DIFF 2021-12-20 00:25:00 Alex [facility] LACTIC ACID WHOLE BLOOD 2021-12-20 00:25:00 Alex [facility] EMERGENCY DEPARTMENT 2021-12-19 05:01:00 Doctor Unassigned, No [facility] of [place] DOCUMENTS [facility] HOSPITAL ADMISSION 2021-12-19 05:01:00 Doctor Unassigned, No Uni versity of [facility] CBC WITH DIFF 2021-12-18 17:57:00 Mayank [facility] BASIC METABOLIC PANEL 2021-12-18 17:57:00 Talley [facility] sity [facility] (NA, K, CL, CO2, GLUCOSE, Medica l Branch BUN, CREATININE, CA) MAGNESIUM 2021-12-18 17:57:00 Talley, [facility] MAGNESIUM 2021-12-18 17:57:00 Talley, [facility] BASIC METABOLIC PANEL 2021-12-18 17:57:00 Talley [facility] (NA, K, CL, CO2, GLUCOSE, Medica l Branch BUN, CREATININE, CA) CBC WITH DIFF 2021-12-18 17:57:00 Talley [facility] POCT GLUCOSE (AUTOMATED) 2021-12-18 16:49:00 Terminella, Thomas U niversity of [facility] POCT GLUCOSE (AUTOMATED) 2021-12-18 16:49:00 Terminella, Thomas U niversity of [facility] POCT GLUCOSE (AUTOMATED) 2021-12-18 12:56:00 Terminella, Thomas U niversity of [facility] POCT GLUCOSE (AUTOMATED) 2021-12-18 12:56:00 Terminella, Thomas U niversity of [facility] POCT GLUCOSE (AUTOMATED) 2021-12-18 09:41:00 Terminella, Thomas U niversity of [facility] POCT GLUCOSE (AUTOMATED) 2021-12-18 09:41:00 Terminella, Thomas U niversity of [facility] POCT GLUCOSE (AUTOMATED) 2021-12-18 05:08:00 Terminella, Thomas U niversity of [facility] POCT GLUCOSE (AUTOMATED) 2021-12-18 05:08:00 Terminella, Thomas U niversity of [facility] POCT GLUCOSE (AUTOMATED) 2021-12-18 01:26:00 Terminella, Thomas U niversity of [facility] POCT GLUCOSE (AUTOMATED) 2021-12-18 01:26:00 Terminella, Thomas U niversity of [facility] POCT GLUCOSE (AUTOMATED) 2021-12-17 21:41:00 Terminella, Thomas U niversity of [facility] POCT GLUCOSE (AUTOMATED) 2021-12-17 21:41:00 Terminella, Thomas U niversity of [facility] POCT GLUCOSE (AUTOMATED) 2021-12-17 17:07:00 Terminella, Thomas U niversity of [facility] POCT GLUCOSE (AUTOMATED) 2021-12-17 17:07:00 Terminella, Thomas U niversity of [facility] POCT GLUCOSE (AUTOMATED) 2021-12-17 14:01:00 Terminella, Thomas U niversity of [facility] POCT GLUCOSE (AUTOMATED) 2021-12-17 14:01:00 Terminella, Thomas U niversity of [facility] POCT GLUCOSE (AUTOMATED) 2021-12-17 09:18:00 Terminella, Thomas U niversity of [facility] POCT GLUCOSE (AUTOMATED) 2021-12-17 09:18:00 Terminella, Thomas U niversity of [facility] POCT GLUCOSE (AUTOMATED) 2021-12-17 01:43:00 Terminella, Thomas U niversity of [facility] POCT GLUCOSE (AUTOMATED) 2021-12-17 01:43:00 Terminella, Thomas U niversity of [facility] POCT GLUCOSE (AUTOMATED) 2021-12-16 21:24:00 Albustami, Vito Uni versity of [facility] POCT GLUCOSE (AUTOMATED) 2021-12-16 21:24:00 Albustami, Vito Uni versity of [facility] POCT GLUCOSE (AUTOMATED) 2021-12-16 16:25:00 Albustami, Vito Uni versity of [facility] POCT GLUCOSE (AUTOMATED) 2021-12-16 16:25:00 AlbbessyamiVito Uni versity of [facility] URINALYSIS 2021-12-16 15:46:00 Mayank [facility] URINE CULTURE 2021-12-16 15:46:00 [facility] URINALYSIS 2021-12-16 15:46:00 [facility] URINE CULTURE 2021-12-16 15:46:00 [facility] POCT GLUCOSE (AUTOMATED) 2021-12-16 15:36:00 Vito [facility]SE ([facility]OMATED) 2021-12-16 15:36:00 AlbbessyamiVito [facility] POCT GLUCOSE (AUTOMATED) 2021-12-16 14:25:00 AlbbessyamiVito [facility] POCT GLUCOSE (AUTOMATED) 2021-12-16 14:25:00 AlbVito cuenca Uni [facility] BASIC METABOLIC PANEL 2021-12-16 13:45:00 Vito Mckeon [facility] (NA, K, CL, CO2, GLUCOSE, Medica l Branch BUN, CREATININE, CA) BASIC METABOLIC PANEL 2021-12-16 13:45:00 Albbessyami Vito [facility] (NA, K, CL, CO2, GLUCOSE, Medica l Branch BUN, CREATININE, CA) POCT GLUCOSE (AUTOMATED) 2021-12-16 13:34:00 Vito Mckeon Uni [facility] POCT GLUCOSE (AUTOMATED) 2021-12-16 13:34:00 Vito Mckeon [facility] CRITICAL CARE 2021-12-16 13:05:05 Jennifer Olivera [facility] CRITICAL CARE 2021-12-16 13:05:05 Jarod [facility] POCT GLUCOSE (AUTOMATED) 2021-12-16 12:23:00 Vito [facility]SE (AUTOMATED) 2021-12-16 12:23:00 AlbVito cuenca [facility] PO[facility]SE (AUTOMATED) 2021-12-16 11:24:00 AlbVito cuenca [facility] PO[facility] GLU[facility]SE (AUTOMATED) 2021-12-16 11:24:00 Vito [facility] PO[facility]SE (AUTOMATED) 2021-12-16 10:33:00 Vito Mckeon [facility] POCT GLUCOSE (AUTOMATED) 2021-12-16 10:33:00 Vito [facility]keon [facility] BASIC METABOLIC PANEL 2021-12-16 09:32:00 Vito Mckeon [facility] (NA, K, CL, CO2, GLUCOSE, Medica l Branch BUN, CREATININE, CA) BASIC METABOLIC PANEL 2021-12-16 09:32:00 Vito Mckeon [facility] (NA, K, CL, CO2, GLUCOSE, Medica l Branch BUN, CREATININE, CA) POCT GLUCOSE (AUTOMATED) 2021-12-16 09:30:00 Vito [facility]keon [facility] PO[facility]UCOSE (AUTOMATED) 2021-12-16 09:30:00 Vito [facility]keon [facility] PO[facility] GLUCOSE (AUTOMATED) 2021-12-16 08:27:00 AlbVito cuenca [facility] POCT GLUCOSE (AUTOMATED) 2021-12-16 08:27:00 Vito [facility]keon [facility] PO[facility]SE (AUTOMATED) 2021-12-16 07:23:00 AlbVito cuenca [facility] PO[facility] GLUCOSE (AUTOMATED) 2021-12-16 07:23:00 Vito [facility]keon [facility] PO[facility]SE (AUTOMATED) 2021-12-16 06:22:00 AlbVito cuenca [facility] PO[facility] GLU[facility]SE (AUTOMATED) 2021-12-16 06:22:00 Vito Mckeon Lauren [facility] BASIC METABOLIC PANEL 2021-12-16 05:30:00 Vito Mckeon [facility] (NA, K, CL, CO2, GLUCOSE, Medica l Branch BUN, CREATININE, CA) BASIC METABOLIC PANEL 2021-12-16 05:30:00 Vito Mckeon [facility] (NA, K, CL, CO2, GLUCOSE, Medica l Branch BUN, CREATININE, CA) POCT GLUCOSE (AUTOMATED) 2021-12-16 05:27:00 Albustami Vito [facility] POCT GLUCOSE (AUTOMATED) 2021-12-16 05:27:00 Albustami, Vito [facility] POCT GLUCOSE (AUTOMATED) 2021-12-16 04:23:00 Albustami, Vito [facility] POCT GLUCOSE (AUTOMATED) 2021-12-16 04:23:00 Albustami, Vito [facility] POCT GLUCOSE (AUTOMATED) 2021-12-16 03:19:00 Albustami, Vito [facility] POCT GLUCOSE (AUTOMATED) 2021-12-16 03:19:00 Albustami, Vito [facility] POCT GLUCOSE (AUTOMATED) 2021-12-16 02:24:00 Albustami Vito [facility] POCT GLUCOSE (AUTOMATED) 2021-12-16 02:24:00 Albustami [facility] KETONES URINE 2021-12-16 01:49:00 [facility] 2021-12-16 01:49[facility]00 [facility]DROX[facility]ATE 2021-12-16 01:44:00 Talley [facility] BASIC METABOLIC PANEL 2021-12-16 01:44:00 [facility] (NA, K, CL, CO2, GLUCOSE, Medica l Branch BUN, CREATININE, CA) BETA HYDROXY-BUTYRATE 2021-12-16 01:44:00 Talley, [facility] BASIC METABOLIC PANEL 2021-12-16 01:44:00 [facility] (NA, K, CL, CO2, GLUCOSE, Medica l Branch BUN, CREATININE, CA) POCT GLUCOSE (AUTOMATED) 2021-12-16 01:24:00 Albustami Vito [facility] POCT GLUCOSE (AUTOMATED) 2021-12-16 01:24:00 Albustami, Vito [facility] POCT GLUCOSE (AUTOMATED) 2021-12-16 00:18:00 Rosalind Vito [facility] PO[facility]SE (AUTOMATED) 2021-12-16 00:18:00 Vito [facility]on [facility] PO[facility] GLU[facility]SE (AUTOMATED) 2021-12-15 22:56:00 Vito Mckeon Lauren [facility] POCT GLUCOSE (AUTOMATED) 2021-12-15 22:56:00 Vito Mckeon Lauren [facility] BASIC METABOLIC PANEL 2021-12-15 22:03:00 Rosalind Vito [facility] (NA, K, CL, CO2, GLUCOSE, Medica l Branch BUN, CREATININE, CA) BASIC METABOLIC PANEL 2021-12-15 22:03:00 Vito Mckeon [facility] (NA, K, CL, CO2, GLUCOSE, Medica l Branch BUN, CREATININE, CA) POCT GLUCOSE (AUTOMATED) 2021-12-15 21:50:00 Vito Mckeon Lauren [facility] POCT GLUCOSE (AUTOMATED) 2021-12-15 21:50:00 Vito Mckeon Lauren [facility] POCT GLUCOSE (AUTOMATED) 2021-12-15 20:39:00 Vito Mckeon Lauren [facility] POCT GLUCOSE (AUTOMATED) 2021-12-15 20:39:00 Vito Mckeon Lauren [facility] POCT GLUCOSE (AUTOMATED) 2021-12-15 18:58:00 Vito Mckeon Lauren [facility] POCT GLUCOSE (AUTOMATED) 2021-12-15 18:58:00 Vito Mckeon Lauren [facility] BASIC METABOLIC PANEL 2021-12-15 17:46:00 Vito Mckeon [facility] (NA, K, CL, CO2, GLUCOSE, Medica l Branch BUN, CREATININE, CA) BASIC METABOLIC PANEL 2021-12-15 17:46:00 Rosalind Vito [facility] (NA, K, CL, CO2, GLUCOSE, Medica l Branch BUN, CREATININE, CA) POCT GLUCOSE (AUTOMATED) 2021-12-15 17:39:00 [facility] 2021-12-15 17:39:00 AlbVito cuenca [facility] ([facility]OMATED) 2021-12-15 16:22:00 AlbVito cuenca [facility] (AUTOMATED) 2021-12-15 16:22:00 AlbVito cuenca [facility] (AUTOMATED) 2021-12-15 15:27:00 AlbustamiVito [facility] PO[facility] (AUTOMATED) 2021-12-15 15:27:00 AlbbessyamiVito [facility] PO[facility]SE (AUTOMATED) 2021-12-15 14:17:00 AlbVito cuenca [facility] PO[facility]SE (AUTOMATED) 2021-12-15 14:17:00 Rosalind Vito [facility] CBC WITHOUT DIFF 2021-12-15 13:33:00 Albustdani [facility] CBC WITHOUT DIFF 2021-12-15 13:33:00 Rosalind [facility] POCT GLUCOSE (AUTOMATED) 2021-12-15 13:20:00 Albjoellen Vito [facility] POCT GLUCOSE (AUTOMATED) 2021-12-15 13:20:00 Vito Mckeon [facility] POCT GLUCOSE (AUTOMATED) 2021-12-15 12:13:00 Albustami Vito [facility] POCT GLUCOSE (AUTOMATED) 2021-12-15 12:13:00 Rosalind Vito [facility] XR CHEST 1 VW 2021-12-15 11:46:06 Rosalind [facility] XR CHEST 1 VW 2021-12-15 11:46:06 Rosalind [facility] MAGNESIUM 2021-12-15 10:54:00 Rosalind [facility] MRSA / MSSA SCREEN BY 2021-12-15 10:54:00 Rosalind [facility] BASIC METABOLIC PANEL 2021-12-15 10:54:00 [facility] (NA, K, CL, CO2, GLUCOSE, Medica l Branch BUN, CREATININE, CA) OSMOLALITY, SERUM OR 2021-12-15 10:54:00 [facility] PHOSPHORUS 2021-12-15 10:54:00 [facility] 2021-12-15 10:54:00 [facility] PHOSPHORUS 2021-12-15 10:54:00 [facility] MAGNESIUM 2021-12-15 10:54:00 [facility] OSMOLALITY, SERUM OR 2021-12-15 10:54:00 [facility] 2021-12-15 10:54:00 [facility] BASIC METABOLIC PANEL 2021-12-15 10:54:00 [facility] (NA, K, CL, CO2, GLUCOSE, Medica l Branch BUN, CREATININE, CA) MRSA / MSSA SCREEN BY 2021-12-15 10:54:00 [facility] POCT GLUCOSE (AUTOMATED) 2021-12-15 10:53:00 Vito Mckeon Uni [facility] POCT GLUCOSE (AUTOMATED) 2021-12-15 10:53:00 AlbVito cuenca Uni [facility] POCT GLUCOSE (AUTOMATED) 2021-12-15 08:46:00 [facility] ([facility]OMATED) 2021-12-15 08:46:00 [facility] PO[facility]SE (AUTOMATED) 2021-12-15 07:39:00 [facility] POCT GLUCOSE (AUTOMATED) 2021-12-15 07:39:00 Jennifer Olivera [facility] POCT GLUCOSE (AUTOMATED) 2021-12-15 07:02:00 Jennifer Olivera [facility] POCT GLUCOSE (AUTOMATED) 2021-12-15 07:02:00 Jennifer Olivera [facility] POCT GLUCOSE (AUTOMATED) 2021-12-15 06:17:00 Jennifer Olivera [facility] POCT GLUCOSE (AUTOMATED) 2021-12-15 06:17:00 Jennifer Olivera [facility] AC PANEL 21 + LACTIC ACID 2021-12-15 05:36:00 Jennifer Olivera [facility] AC PANEL 21 + LACTIC ACID 2021-12-15 05:36:00 [facility]ATED) 2021-12-15 04:58:00 Jennifer Olivera [facility] POCT GLUCOSE (AUTOMATED) 2021-12-15 04:58:00 Jennifer Olivera [facility] CT ABDOMEN PELVIS W 2021-12-15 04:33:00 Jennifer Olivera [facility] CONTRAST [facility] CT ABDOMEN PELVIS W 2021-12-15 04:33:00 Jennifer Olivera [facility] CONTRAST [facility] COMP. METABOLIC PANEL 2021-12-15 04:20:00 Jennifer Olivera [facility] ([id number]) [facility] COMP. METABOLIC PANEL 2021-12-15 04:20:00 Jennifer Olivera [facility] ([id number]) [facility] CBC WITH DIFF 2021-12-15 03:14:00 Jennifer Olivera [facility] BLOOD CULTURE SCREEN 2021-12-15 03:14:00 Jennifer Olivera [facility] BLOOD CULTURE SCREEN 2021-12-15 03:14:00 Jennifer Olivera [facility] CBC WITH DIFF 2021-12-15 03:14:00 Jennifer Olivera [facility] ACTIVATED PARTIAL 2021-12-15 03:13:00 Jennifer Olivera [facility] / INR 2021-12-15 03:13:00 Jennifer Olivera [facility] LIPASE 2021-12-15 03:13:00 Jennifer Olivera [facility] TROPONIN I 2021-12-15 03:13:00 Jennifer Olivera [facility] N-TERMINAL PRO-BNP 2021-12-15 03:13:00 Jennifer Olivera [facility] LIPASE 2021-12-15 03:13:00 Jennifer Olivera [facility] TROPONIN I 2021-12-15 03:13:00 Jennifer Olivera [facility] PROTHROMBIN TIME / INR 2021-12-15 03:13:00 Jennifer Olivera [facility] ACTIVATED PARTIAL 2021-12-15 03:13:00 Jennifer Olivera [facility] N-TERMINAL PRO-BNP 2021-12-15 03:13:00 Jennifer Olivera [facility] LACTIC ACID WHOLE BLOOD 2021-12-15 03:12:00 Jennifer Olivera [facility] LACTIC ACID WHOLE BLOOD 2021-12-15 03:12:00 [facility]od [facility] EKG-12 LEAD 2021-12-15 01:55:16 Doctor Unassigned, No [facility] EKG-12 LEAD 2021-12-15 01:55:16 Doctor Unassigned, No [facility] EMERGENCY DEPARTMENT 2021-12-14 05:01:00 [facility] 2021-12-14 05:01:00 Doctor Unassigned, No [facility] BASIC METABOLIC PANEL 2021-11-28 09:31:00 Peng Yadav [facility] (NA, K, CL, CO2, GLUCOSE, Medica l Branch BUN, CREATININE, CA) CBC WITH DIFF 2021-11-28 09:31:00 Peng Yadav [facility] BASIC METABOLIC PANEL 2021-11-28 09:31:00 Peng Yadav [facility] (NA, K, CL, CO2, GLUCOSE, Medica l Branch BUN, CREATININE, CA) CBC WITH DIFF 2021-11-28 09:31:00 [facility]urtleff[facility]OLIC PANEL 2021-11-27 08:57:00 [facility] (NA, K, CL, CO2, GLUCOSE, Medica l Branch BUN, CREATININE, CA) CBC WITH DIFF 2021-11-27 08:57:00 [facility] BASIC METABOLIC PANEL 2021-11-27 08:57:00 Peng Yadav [facility] (NA, K, CL, CO2, GLUCOSE, Medica l Branch BUN, CREATININE, CA) CBC WITH DIFF 2021-11-27 08:57:00 Leif [facility] CBC WITH DIFF 2021-11-24 10:55:00 Yolis jennifer [facility] COMP. METABOLIC PANEL 2021-11-24 10:55:00 Yolis jennifer [facility] ([id number]) [facility] N-TERMINAL PRO-BNP 2021-11-24 10:55:00 Yolis jennifer [facility] COMP. METABOLIC PANEL 2021-11-24 10:55:00 Yolis [facility] ([id number]) [facility] CBC WITH DIFF 2021-11-24 10:55:00 Yolis [facility] N-TERMINAL PRO-BNP 2021-11-24 10:55:00 Yolis [facility] CBC WITH DIFF 2021-11-23 11:33:00 Carlene Weaver [facility] COMP. METABOLIC PANEL 2021-11-23 11:33:00 Yolis jennifer [facility] ([id number]) [facility] N-TERMINAL PRO-BNP 2021-11-23 11:33:00 Yolis jennifer [facility] MAGNESIUM 2021-11-23 11:33:00 Courtney Mendes [facility] MAGNESIUM 2021-11-23 11:33:00 Yolis jennifer [facility] COMP. METABOLIC PANEL 2021-11-23 11:33:00 Yolis jennifer [facility] ([id number]) Medical Branch CBC WITH DIFF 2021-11-23 11:33:00 Carlene Weaver [facility] N-TERMINAL PRO-BNP 2021-11-23 11:33:00 Courtney Mendes [facility] ASPIRATE OR ABSCESS 2021-11-22 21:31:00 [facility]ANAEROBIC Med[facility] l Branch ) ASPIRATE OR ABSCESS 2021-11-22 21:31:00 [facility]/ANAEROBIC Med[facility] l Branch ) PROTEIN CREAT RATIO URINE 2021-11-22 11:11:[address] [facility] SODIUM, URINE RANDOM 2021-11-22 11:11:00 Courtney Mendes [facility] SODIUM, URINE RANDOM 2021-11-22 11:11:00 Courtney Mendes [facility] PROTEIN CREAT RATIO URINE 2021-11-22 11:11:00 Courtney Mendes [facility] XR CHEST 1 VW 2021-11-22 11:07:43 Courtney Mendes [facility] XR FOOT 3+ VW LEFT 2021-11-22 11:07:43 Courtney Mendes [facility] XR CHEST 1 VW 2021-11-22 11:07:43 Courtney Mendes [facility] XR FOOT 3+ VW LEFT 2021-11-22 11:07:43 Courtney Mendes [facility] URINE DRUG (IMMUNOASSAY) 2021-11-22 11:07:[address] [facility] SCREEN URINE DRUG (LCMSMS) - 2021-11-22 11:07:00 Courtney Mendes [facility] OPIATES PANEL [facility] URINE DRUG (IMMUNOASSAY) 2021-11-22 11:07:[address] [facility] SCREEN URINE DRUG (LCMSMS) - 2021-11-22 11:07:00 Courtney Mendes [facility] SYNTHETIC OPIATES PANEL Medical Branch SEDIMENTATION RATE 2021-11-22 11:03:00 Yolis [facility] PROCALCITONIN 2021-11-22 11:03:00 Yolis [facility] CBC WITH DIFF 2021-11-22 11:03:00 Yolis [facility] COMP. METABOLIC PANEL 2021-11-22 11:03:00 Yolis jennifer [facility] ([id number]) [facility] N-TERMINAL PRO-BNP 2021-11-22 11:03:00 Yolis [facility] MAGNESIUM 2021-11-22 11:03:00 Yolis [facility] PHOSPHORUS 2021-11-22 11:03:00 Yolis [facility] CREATINE KINASE 2021-11-22 11:03:00 Yolis [facility] VITAMIN D, 25-OH 2021-11-22 11:03:00 Yolis [facility] VITAMIN B12, LEVEL 2021-11-22 11:03:00 Yolis [facility] GLYCOSYLATED HEMOGLOBIN 2021-11-22 11:03:00 Yolis jennifer [facility] (A1C) [facility] PHOSPHORUS 2021-11-22 11:03:00 Yolis [facility] CREATINE KINASE 2021-11-22 11:03:00 Yolis [facility] MAGNESIUM 2021-11-22 11:03:00 Yolis [facility] VITAMIN B12, LEVEL 2021-11-22 11:03:00 Yolis jennifer [facility] COMP. METABOLIC PANEL 2021-11-22 11:03:00 Yolis jennifer [facility] ([id number]) [facility] SEDIMENTATION RATE 2021-11-22 11:03:00 Yolis [facility] CBC WITH DIFF 2021-11-22 11:03:00 Yolis [facility] GLYCOSYLATED HEMOGLOBIN 2021-11-22 11:03:00 Courtney Mendes [facility] (A1C) [facility] N-TERMINAL PRO-BNP 2021-11-22 11:03:00 Yolis jennifer [facility] VITAMIN D, 25-OH 2021-11-22 11:03:00 Yolis [facility] PROCALCITONIN 2021-11-22 11:03:00 Yolis jennifer [facility] CT ANGIOGRAM LOWER 2021-11-22 03:39:00 Jennifer Olivera [facility] EXTREMITY LEFT W CONTRAST Medica [facility] Branch CT ANGIOGRAM LOWER 2021-11-22 03:39:00 Jennifer Olivera [facility] EXTREMITY LEFT W CONTRAST [facility] CT HEAD WO CONTRAST 2021-11-22 03:25:00 Jennifer Olivera [facility] CT HEAD WO CONTRAST 2021-11-22 03:25:00 Jennifer Olivera [facility] URINALYSIS 2021-11-22 01:22:00 Jennifer Olivera [facility] URINE CULTURE 2021-11-22 01:22:00 Jarod Jennifer [facility] URINALYSIS 2021-11-22 01:22:00 Jarod Jennifer [facility] URINE CULTURE 2021-11-22 01:22:00 Jennifer Olivera [facility] CBC WITH DIFF 2021-11-22 00:58:00 Jennifer Olivera [facility] ACTIVATED PARTIAL 2021-11-22 00:58:00 Jennifer Olivera [facility] PROTHROMBIN TIME / INR 2021-11-22 00:58:00 Jennifer Olivera [facility] COMP. METABOLIC PANEL 2021-11-22 00:58:00 Jennifer Olivera [facility] ([id number]) [facility] BLOOD CULTURE SCREEN 2021-11-22 00:58:00 Jennifer Olivera [facility] LACTIC ACID WHOLE BLOOD 2021-11-22 00:58:00 Jennifer Olivera [facility] N-TERMINAL PRO-BNP 2021-11-22 00:58:00 Courtney Mendes [facility] MAGNESIUM 2021-11-22 00:58:00 Yolis jennifer [facility] PHOSPHORUS 2021-11-22 00:58:00 Yolis [facility] FERRITIN SERUM 2021-11-22 00:58:00 Yolis [facility] IRON PANEL 2021-11-22 00:58:00 Yolis [facility] THYROID STIMULATING 2021-11-22 00:58:00 Yolis [facility] LIPID PANEL ([id number])(TOTAL 2021-11-22 00:58:00 Courtney Mendes [facility] CHOLESTEROL, [facility] TRIGLYCERIDES, HDL) BLOOD CULTURE SCREEN 2021-11-22 00:58:00 Jennifer Olivera [facility] PHOSPHORUS 2021-11-22 00:58:00 Yolis jeninfer [facility] MAGNESIUM 2021-11-22 00:58:00 Yolis [facility] FERRITIN SERUM 2021-11-22 00:58:00 Yolis [facility] THYROID STIMULATING 2021-11-22 00:58:00 Yolis [facility] COMP. METABOLIC PANEL 2021-11-22 00:58:00 Jennifer Olivera [facility] ([id number]) Medical Branch LIPID PANEL ([id number])(TOTAL 2021-11-22 00:58:00 Courtney Mendes [facility] CHOLESTEROL, [facility] TRIGLYCERIDES, HDL) IRON PANEL 2021-11-22 00:58:00 Yolis jennifer [facility] CBC WITH DIFF 2021-11-22 00:58:00 Jennifer Olivera [facility] PROTHROMBIN TIME / INR 2021-11-22 00:58:00 Jennifer Olivera [facility] ACTIVATED PARTIAL 2021-11-22 00:58:00 Jennifer Olivera [facility] N-TERMINAL PRO-BNP 2021-11-22 00:58:00 Yolis jennifer [facility] LACTIC ACID WHOLE BLOOD 2021-11-22 00:58:00 [facility] 2021-11-21 05:01:00 Doctor Unassigned, No [facility] ADM [facility] 2021-11-21 05:01:00 Doctor Unassigned, No [facility] HOSPITAL ADMISSION 2021-11-21 05:01:00 Doctor Unassigned, No [facility] EMERGENCY DEPARTMENT 2021-11-21 05:01:00 Doctor Unassigned, No [facility] ADM [facility] 2021-11-21 05:01:00 Doctor Unassigned, No Un iversity [facility] Spinal puncture, lumbar, 2021-10-24 20:30:00 Tony Gomez diagnostic; with fluoroscopic or CT guidance MAGNESIUM 2021-10-16 04:12:00 Singer [facility] COMP. METABOLIC PANEL 2021-10-16 04:12:00 Singer [facility] ([id number]) [facility] CBC WITH DIFF 2021-10-16 04:12:00 Singer [facility] CT HEAD WO CONTRAST 2021-09-29 00:15:29 Roger Neff [facility] URINALYSIS 2021-09-28 23:53:00 Roger Neff Cici [facility] COMP. METABOLIC PANEL 2021-09-28 23:52:00 Roger Neff Cici [facility] ([id number]) [facility] CBC WITH DIFF 2021-09-28 23:52:00 Roger Neff Cici [facility] XR CHEST 1 VW 2021-08-07 03:03:32 Courtney Mendes [facility] COMP. METABOLIC PANEL 2021-08-06 11:57:00 Francesco Mari [facility] ([id number]) [facility] CBC WITH DIFF 2021-08-06 11:57:00 Mari Wong [facility] BASIC METABOLIC PANEL 2021-08-04 12:10:[facility] ([facility], K, CL, CO2, GLUCOSE, Medica l Branch BUN, CREATININE, CA) CBC WITH DIFF 2021-08-04 12:09:00 [facility] 2021-08-04 00:40:00 Hanh Gunter [facility] URINE CULTURE 2021-08-04 00:40:00 Hanh Gunter [facility] FECES CULTURE 2021-08-03 14:58:00 [facility] (GUAIAC[facility] BLOOD 2021-08-03 14:58:00 [facility] 2021-08-03 14:58:00 [facility] FECAL PATHOGENS BY PCR 2021-08-03 14:58:[address] [facility] URINE DRUG (IMMUNOASSAY) 2021-08-03 10:11:00 Kosta [facility] DRUG [facility] SCREEN COVID-19 (ID NOW RAPID 2021-08-03 07:33:00 Carmelita Serna [facility] TESTING) [facility] LAB ONLY COVID 2021-08-03 07:33:00 Carmelita Serna [facility] INTERPRETATION [facility] COMP. METABOLIC PANEL 2021-08-03 06:18:00 Carmelita Serna [facility] ([id number]) [facility] CBC WITH DIFF 2021-08-03 05:40:00 Carmelita Serna [facility] URINALYSIS 2021-08-01 01:43:00 Stephanie Balderrama [facility] LIPASE 2021-08-01 01:40:00 Stephanie Balderrama [facility] COMP. METABOLIC PANEL 2021-08-01 01:40:00 Stephanie Balderrama [facility] ([id number]) [facility] CBC WITH DIFF 2021-08-01 01:38:00 Stephanie Balderrama [facility] XR CHEST 1 VW 2021-07-31 23:40:19 Stephanie Balderrama [facility] ASSIGNMENT OF BENEFITS 2021-07-31 22:05:40 Doctor Unassigned, No [facility] NOTICE OF PRIVACY 2021-07-31 22:04:58 Doctor Unassigned, No [facility] PRACTICES [facility] CONSENT/REFUSAL FOR 2021-07-31 22:04:33 Doctor Unassigned, No [facility] DIAGNOSIS AND TREATMENT Name [facility] URINALYSIS 2021-07-29 23:09:00 Lynette Fonseca [facility] BLOOD CULTURE SCREEN 2021-07-29 23:04:00 Lynette Fonseca [facility] D-DIMER 2021-07-29 22:49:00 Lynette Fonseca [facility] COVID-19 (ID NOW RAPID 2021-07-29 22:48:00 Lynette Fonseca [facility] TESTING) [facility] COMP. METABOLIC PANEL 2021-07-29 22:17:00 Lynette Fonseca [facility] ([id number]) [facility] CBC WITH DIFF 2021-07-29 22:17:00 Lynette Fonseca [facility] XR CHEST 1 VW 2021-07-29 21:47:19 Lynette Fonseca [facility] COMP. METABOLIC PANEL 2021-06-07 22:20:00 Jonathan Sanford [facility] ([id number]) [facility] CBC WITH DIFF 2021-06-07 22:20:00 Jonathan Sanford o [facility] CT ABDOMEN PELVIS WO 2020-11-21 00:39:40 Madonna Helms [facility] CONTRAST [facility] LIPASE 2020-11-21 00:06:00 Madonna Helms [facility] COMP. METABOLIC PANEL 2020-11-21 00:06:00 Madonna Helms [facility] ([id number]) [facility] CBC WITH DIFF 2020-11-21 00:06:00 Madonna Helms [facility] URINALYSIS 2020-11-21 00:00:00 Madonna Helms [facility] Medical Branch COVID-19 (ID NOW RAPID 2020-11-21 00:00:00 Madonna Helms [facility] TESTING) [facility] Branch 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 Plan of Care Planned Activity Planned Date Details Comments Source Future Scheduled 2022-07-[address] [facility]procedure[facility] [code = [facility] 57537643] Future Scheduled 2022-07-[address] [facility] 00:[facility]:00 (procedure) [code = [facility] Center 21100177] Future Scheduled 2022-07-[address] [facility] 00:00:00 (procedure) [code = [facility] 48987634] Future Scheduled 2022-07-[address] [facility] 00:00:00 (procedure) [code = [facility] [id number]] Future Scheduled 2022-03-15 INFLUENZA VACCINE (#1) C [...] [facility] 00:[facility]:00 (Season Ended) [code = [facility] INFLUENZA VACCINE (Season Ended)] Future Scheduled 2020-07-[address] [facility] 00:00:00 (12+) [code = Medical Center DEPRESSION SCREENING (12+)] Future Scheduled 2019-10-[address] [facility] (procedure) [code = 90510183] Future Scheduled 2019-10-[address] [facility] (procedure) [code = 20945027] Future Scheduled 2019-10-[address] [facility] (procedure) [code = 32721819] Future Scheduled 2019-10-[address] [facility] 00[facility] (procedure) [code = 60565114] Future Scheduled 2004 DTAP/TDAP/TD VACCINES CH I [...] 00:00:00 protein (procedure) Medical Center [code = 377284267] Future Scheduled 1995 DIABETIC EYE EXAM [facility] 00:00:00 [code = DIABETIC EYE [facility] Center EXAM] Future Scheduled 1995 Urine screening for [facility] 00:00:00 protein (procedure) [facility] Center [code = 251321047] Future Scheduled 1995 DIABETIC EYE EXAM [facility] 00:00:00 [code = DIABETIC EYE [facility] EXAM] Future Scheduled 1995 Urine screening for [facility] 00:00:00 protein (procedure) [facility] Center [code = 222815248] Future Scheduled 1995 DIABETIC EYE EXAM [facility] 00:00:00 [code = DIABETIC EYE Medical Center EXAM] Future Scheduled 1995 Urine screening [facility] 00:00:00 protein (procedure) [facility] Center [code = 268350047] Future Scheduled [address] [...] Date/Time Type Type Clinicians Facility Department ID 2022-09-10 Outpatient [facility] [id number] [place] 15:02:41 0227 [facility] 2022-08-21 Outpatient Nichole, STLMLC STLC [id number] Common 15:24:00 Eren [id number] [facility] 2022-06-25 Outpatient [facility] [id number] [place] 10:51:49 1212 [facility] 2021-10-23 Outpatient [facility] [id number] [place] 08:22:27 0411 [facility] 2021-10-09 Outpatient [facility] [id number] [place] 11:10:01 0328 [facility] 2021-08-09 Outpatient Nichole, STLMLC STLMLC [id number] Common 13:45:16 Eren [id number] [facility] 2021-08-09 Outpatient Nichole, STLMLC STLMLC [id number] Common 13:17:39 Eren [id number] [facility] 2021-08-09 Outpatient Nichole, STLMLC STLMLC [id number] Common 13:16:34 Eren [id number] [facility] 2022-11-23 2022-11-23 Outpatient R [facility] [id number] Univers 14:00:00 14:00:00 [facility] [facility] 2022-11-22 2022-11-22 Outpatient R [facility] [id number] Univers 14:00:00 14:00:00 ity [facility] 2022-11-21 2022-11-21 [facility] [id number] Univers 13:30:00 13:30:00 ALHAJI ity [facility] 2022-11-09 2022-11-09 Emergency X [facility] ERT [id number] Univers 14:23:00 19:32:00 , SUZANNE ity [facility] 2022-11-09 2022-11-09 Emergency [facility] 1.2.840.114 [id number] Univers 14:23:00 19:32:00 , Suzanne [place] 350.1.13.10 i ty [facility] 4.2.7.2.686 [place] [facility] [phone] [address] 2022-11-09 2022-11-09 Outpatient R [facility] [id number] Univers 13:00:00 13:00:00 ity [facility] 2022-11-09 2022-11-09 Telephone Yudi Holloway [facility] 1.2.893.630 [id number] Univers 00:00:00 00:00:00 HEALTH 350.1.13.10 it y of [place] 4.2.7.2.686 Tim as VICENTA?BLEA [id number] [address] MEDICAL OFFICE [facility] 2022-11-07 2022-11-07 [facility] [id number] Univers 14:00:00 14:00:00 [facility]-07 2022-11-07 Telephone Yudi Holloway [facility] 1.2.698.378 [id number] [id number] Univers 00:00:00 00:00:00 HEALTH 350.1.13.10 it y of [place] 4.2.7.2.686 Tim as VICENTA?BLEA [id number] [address] MEDICAL OFFICE [facility] 2022-11-06 2022-11-06 Telephone Mayank [facility] 1.2.707.121 2483 [id number] Univers 00:00:00 00:00:00 Ursula A HEALTH 350.1.13.10 ity of [place] 4.2.7.2.686 Tim as VICENTA?BLEA [id number] Sc sabra [address] MEDICAL OFFICE [facility] 2022-11-05 2022-11-05 Outpatient R AMIEYUDI [facility] [id number] Univers 16:30:00 16:30:00 YUDI HOLLOWAY [facility] 2022-11-05 2022-11-05 Telephone Amie [facility] 1.2.821.783 [id number] [id number] Univers 00:00:00 00:00:00 HEALTH 350.1.13.10 it y of [place] 4.2.7.2.686 Tim as VICENTA?BLEA [phone] Sc sabra BLANDON 0[address] [facility] OFFICE [facility] 2022-11-01 2022-11-01 Telephone Amie [facility] ..785.180 [id number] [id number] Univers 00:00:00 00:00:00 HEALTH 350.1.13.10 it y of [place] 4.2.7.2.686 Tim as VICENTA?BLEA [id number] [facility] OFFICE [facility] 2022-10-31 2022-10-31 Emergency X JARODUNM [facility] ERT [id number] Univers 14:34:00 20:52:00 JENNIFER [facility] 2022-10-31 2022-10-31 Emergency [facility] 1.2.059.915 [id number] Univers 14:34:00 20:52:00 Jenniferfatou [facility] 350.1.13.10 i ty of [place].2.7.2.686 [place] [phone] [facility] [address] 2022-10-31 2022-10-31 Outpatient R [facility]IE [facility] [id number] Univers 13:00:00 14:32:40 YUDI HOLLOWAY [facility] 2022-10-31 2022-10-31 [facility] 1..840.114 [id number] Univers 13:00:00 14:32:40 Visit HEALTH 350.1.13.10 it y of [place] 4.2.7.2.686 Tim as VICENTA?BLEA [phone] [facility] OFFICE [facility] 2022-10-31 2022-10-31 Telephone Amie, Ponce [facility] 1.2.685.665 [id number] [id number] Univers 00:00:00 00:00:00 HEALTH 350.1.13.10 it y of [place] 4.2.7.2.686 Tim as VICENTA?BLEA [id number] [facility] OFFICE [facility] 2022-10-29 2022-10-29 Telephone [facility] 1.2.840.114 [id number] Univers 00:00:00 00:00:00 Alhaji [facility] 350.1.13.10 i ty of [place] 4.2.7.2.686 [place] [id number] Sc sabra COUNTS INCLUDE 234 [facility] AT [facility] 204 [facility] 2022-10-25 2022-10-25 Outpatient [facility] [id number] Univers 14:00:00 14:45:52 ALHAJI ity [facility] 2022-10-23 2022-10-23 Telephone [facility] 1.2.840.114 [id number] Univers 00:00:00 00:00:00 Alhaji [place] 350.1.13.10 i ty of [place] 4.2.7.2.[place] [id number] [facility] 188 [facility] 2022-10-21 2022-10-21 Emergency X [facility] ERT [id number] Univers 16:59:00 23:22:00 LYNETTE ity of [facility] 2022-10-21 2022-10-21 Emergency [facility] 1.2.525.839 [id number] 15087 Univers 16:59:00 23:22:00 Lynettegianni DURAN 350.1.13.10 ity of [place].2.7.2.[place] [id number] [address] 2022-10-12 2022-10-12 Outpatient [facility] [id number] Univers 13:00:00 13:49:32 ALHAJI ity [facility] 2022-10-12 2022-10-12 Nurse Nurse, Adc Surgery [facility] 1.2. 840.114 [id number] Univers 13:00:00 13:49:32 Visit Martina Alhajiemil DURAN 350.1.13.10 ity of [facility] 4.2.7.2.686 [place] [phone] Sc dical NAL [address] BUILDING 2022-10-10 2022-10-10 Telephone Yudi Holloway [facility] 1.2.857.521 [id number] [id number] Univers 00:00:00 00:00:00 HEALTH 350.1.13.10 it y of [place] 4.2.7.2.686 Tim as VICENTA?BLEA [id number] Sc dicla KNEY [address] MEDICAL OFFICE BUILDING 2022-10-05 2022-10-05 Emergency X [facility] ERT [id number] Univers 15:37:00 21:02:00 FOLUSHO [facility] 2022-10-05 2022-10-05 [facility] 1.2.840.114 10 [id number] Univers 15:37:00 21:02:00 Madonna DURAN 350.1.13.10 ity of [facility] 4.2.7.2.686 [place] [phone] [facility] [address] 2022-09-24 2022-09-24 Outpatient R YUDI HOLLOWAY [facility] [id number] Univers 14:30:00 14:30:00 YUDI HOLLOWAY ity [facility] 2022-09-12 2022-09-12 Outpatient R MARTINA [facility] [id number] Univers 13:30:00 13:30:00 ALHAJI ity [facility] 2022-09-07 2022-09-07 Transition DEVANTE Zepeda 1.2.840.114 [id number] Univers 00:00:00 00:00:00 of Care Kamilajessika [place] 350.1.13.10 ity of [place] [id number] [address] 2022-09-03 2022-09-06 Inpatient X NEWAB [facility] [id number] Univers 18:47:00 14:22:00 AB WOLFF ity of [facility] 2022-09-03 2022-09-06 Hospital Diomedes Joseph [facility] 1.2.8 40.114 [id number] Univers 18:47:00 14:22:00 Encounter Mayank Dontae [facility] 350.1.13.10 ity of Ab Wol[place] 4.2.7.2.686 [place] [phone] [address] ([facility]) 2022-09-06 2022-09-06 Patient DEVANTE Hoarn 1.2.840.114 [id number] Univers 00:00:00 00:00:00 Outreach Ann [place] 350.1.13.10 i ty [place]2.7.2.686 [place] [phone] [address] 2022-09-05 2022-09-05 Surgery Saud [facility] 1.2.840.114 [id number] Univers 13:29:00 15:37:00 Mejia SPECIALTY 350.1.13.10 ity of C[place].2.7.2.686 [place] C[place] [id number] Sc sabra LE 020 [facility] 2022-09-04 2022-09-04 Telephone Yudi Holloway [facility] 1.2.268.418 [id number] [id number] Univers 00:00:00 00:00:00 HEALTH 350.1.13.10 it y of [place] 4.2.7.2.686 Tim as VICENTA?BLEA [id number] Sc dicgabbi DWYER [address] MEDICAL OFFICE BUILDING 2022-09-03 2022-09-03 Patient DEVANTE Dawson 1.2.840.114 [id number] Univers 00:00:00 00:00:00 Outreach Randall [place] 350.1.13.10 [place].2.[place] [id number] [address] 2022-08-29 2022-08-29 Telephone Yudi Holloway [facility] 1.2.254.510 [id number] [id number] Univers 00:00:00 00:00:00 HEALTH 350.1.13.10 it y of [place] 4.2.7.2.686 Tim as VICENTA?BLEA [id number] [address] OFFICE [facility] 2022-08-28 2022-08-28 Patient DEVANTE Dawson 1.2.840.114 [id number] Univers 00:00:00 00:00:00 Outreach Randall Collier [place] 350.1.13.10 ity of [place].2.7.2.686 [place] [id number] [facility] [address] 2022-08-28 2022-08-28 Refill Matthewmarvel [facility] 1.2.840.114 10 [id number] Univers 00:00:00 00:00:00 Gasper barclay HEALTH 350.1.13.10 ity [facility] 4.2.7.2.686 Tim as VICENTA?BLEA [phone] [address] 2022-08-27 2022-08-27 Emergency X , [facility] ERT [id number] Univers 13:47:00 18:16:00 JONATHAN [facility] 2022-08-27 2022-08-27 Emergency [facility] 1.2.340.391 1502 [id number] Univers 13:47:00 18:16:00 Jonathan DURAN 350.1.13.10 i ty of [place] 4.2.7.2.686 [place] [id number] [facility] [address] 2022-08-27 2022-08-27 Telephone Yudi Holloway [facility] 1.2.531.692 [id number] Univers 00:00:00 00:00:00 HEALTH 350.1.13.10 it y of [place] 4.2.7.2.686 Tim as VICENTA?BLEA [id number] [address] OFFICE [facility] 2022-08-24 2022-08-25 Emergency X NICKY, [facility] ERT [id number] Univers 16:13:00 00:01:00 MADONNA ity [facility] 2022-08-24 2022-08-25 Emergency Nicky, [facility] 1.2.840.114 10 [id number] Univers 16:13:00 00:01:00 Madonna DURAN 350.1.13.10 ity of [place] 4.2.7.2.686 [facility] [phone] [facility] [address] 2022-08-24 2022-08-24 Patient Lisbeth Carter 1.2.840.114 10 [id number] Univers 00:00:00 00:00:00 Outreach E [place] 350.1.13.10 i ty of [place] 4.2.7.2.686 [facility] [phone] [facility] [address] 2022-08-24 2022-08-24 Telephone Amie Yudi [facility] 1.2.643.562 [id number] [id number] Univers 00:00:00 00:00:00 HEALTH 350.1.13.10 it y [facility] 4.2.7.2.686 Tim as VICNETA?BLEA [phone] [address] MEDICAL OFFICE BUILDING 2022-08-23 2022-08-23 Emergency X [facility]RE[facility] ERT [id number] Univers 15:06:00 19:05:00 SUSAN itlizet [facility] 2022-08-23 2022-08-23 Emergency [facility] 1.2.840.114 10 [id number] Univers 15:06:00 19:05:00 Susan DURAN 350.1.13.10 ity of [facility] 4.2.7.2.686 [facility] [phone] [place] [address] [place] 2022-08-15 2022-08-16 Outpatient X YOLIS [facility] MINA [id number] Univers 14:05:00 19:22:00 COURTNEY ity of [facility] 2022-08-15 2022-08-16 Emergency Jennifer Olivera [facility] 1.2.840. 114 [id number] Univers 14:05:00 19:22:00 Courtney Mendes 350.1.13.10 ity of [facility] 4.2.7.2.686 [facility] [id number] [address] 2022-08-13 2022-08-13 Patient Lisbeth Carter 1.2.840.114 10 [id number] Univers 00:00:00 00:00:00 Outreach E [place] 350.1.13.10 i ty of [place].2.[place] [phone] [facility] [address] 2022-07-15 2022-07-15 Patient AmieYudi kitchen [facility] 1.2.840.114 [id number] Univers 00:00:00 00:00:00 Secure Ms HEALTH 350.1.13.10 ity of [facility] 4.2.7.2.686 Tim as VICENTA?BLEA [phone] Sc dicgabbi BLANDONEY [address] MEDICAL OFFICE BUILDING 2022-07-05 2022-07-05 Outpatient [facility] [id number] Univers 13:00:00 15:17:50 ALHAJI ity [facility] 2022-07-05 2022-07-05 Office [facility] 1.2.840.114 [id number] Univers 13:00:00 15:17:50 Visit [facility] 350.1.13.10 i ty of [facility] 4.2.7.2.686 [place] [phone] Sc sabra COUNTS INCLUDE 234 [facility] 204 [facility] 2022-07-05 2022-07-05 Orders Doctor ORION 1.2.840.114 [id number] Univers 00:00:00 00:00:00 Only Unassigned, CHRISTINE 350.1.13.10 ity of [place] [facility] 4.2.7.2.686 Tim as [id number] [facility] [address] 2022-06-25 2022-06-25 Outpatient R YUDI HOLLOWAY [facility] [id number] Univers 13:00:00 13:39:07 YUDI HOLLOWAY itlizet [facility] 2022-06-25 2022-06-25 Office Amie [facility] 1.2.840.114 [id number] Univers 13:00:00 13:39:07 Visit HEALTH 350.1.13.10 it y of [place] 4.2.7.2.686 Tim as VICENTA?BLEA [id number] Sc sabra [address] MEDICAL OFFICE [facility] 2022-06-25 2022-06-25 Recovery Room Rn Lab, Ang - Db [facility] 1.2.840.1 14 [id number] Univers 12:45:00 13:00:00 Visit Yudi Holloway 350.1.13.10 it y of [facility] 4.2.7.2.686 Tim as VICENTA?BLEA [phone] Sc sabra [address] MEDICAL OFFICE [facility] 2022-05-20 2022-05-21 Outpatient X GEO [facility] [place] [id number] Univers 16:26:00 17:36:00 NEGAR saba [facility] 2022-05-20 2022-05-21 Emergency CesarLynette ruffin Hi [facility] 1.2.840 .114 [id number] Univers 16:26:00 17:36:00 Negar Guardado 350.1.13.10 ity of [place] 4.2.7.2.686 [facility] [id number] [address] 2022-05-14 2022-05-14 Emergency X JAMAL, [facility] ERT [id number] Univers 20:12:00 22:15:00 STEPHANIE ity [facility] 2022-05-14 2022-05-14 [facility] 1.2.524.243 [id number] Univers 20:12:00 22:15:00 Stephanie DURAN 350.1.13.10 ity of [place] 4.2.7.2.686 [facility] [id number] [address] 2022-05-12 2022-05-12 Emergency X SUBHASHMARISOLSAM, [facility] ERT [id number] Univers 19:14:00 22:40:00 CARMELITA saba [facility] 2022-05-12 2022-05-12 Emergency [facility] 1.2.018.557 [id number] Univers 19:14:00 22:40:00 Carmelita DURAN 350.1.13.10 ity of [facility] 4.2.7.2.686 [facility] [phone] [address] 2022-05-08 2022-05-08 Transition DEVANTE Zepeda 1.2.840.114 [id number] Univers 00:00:00 00:00:00 of Care Kamila [place] 350.1.13.10 ity [place] 144.0483283 [facility] [address] 2022-05-04 2022-05-06 Inpatient X KOSTA [facility] [id number] Univers 00:19:00 12:45:00 MERCY ity [facility] 2022-05-04 2022-05-06 [facility] Diomedes Joseph [facility] 1.2.8 40.114 [id number] Univers 00:19:00 12:45:00 Encounter Kaylee Argueta 350.1.13.10 ity [place].2.7.2.[place] [phone] [facility] [address] 2022-05-01 2022-05-01 Outpatient R BEVERLY [facility] [id number] Univers 08:00:00 08:00:00 SARAH BETH ity [facility] 2022-04-23 2022-04-23 Outpatient R BEVERLY [facility] [id number] Univers 08:00:00 08:00:00 SARAH BETH ity [facility] 2022-04-04 2022-04-04 Outpatient R YUDI HOLLOWAY [facility] [id number] Univers 14:00:00 14:00:00 YUDI HOLLOWAY ity [facility] 2022-04-02 2022-04-02 Outpatient R BEVERLY [facility] [id number] Univers 08:30:00 08:30:00 SARAH BETH ity [facility] 2022-03-12 2022-03-12 Outpatient R BEVERLY [facility] [id number] Univers 08:00:00 08:00:00 SARAH BETH ity [facility] 2022-03-02 2022-03-02 Outpatient R BEVERLY [facility] [id number] Univers 11:30:00 11:30:00 SARAH BETH ity [facility] 2022-03-01 2022-03-01 Telephone ORION Golden 1.2.840.114 [id number] Univers 00:00:00 00:00:00 Vesta KING 350.1.13.10 i ty of [facility] 4.2.7.2.686 Tim as [phone] [facility] [address] 2022-03-01 2022-03-01 Telephone [facility] 1.2.513.888 4208 [id number] Univers 00:00:00 00:00:00 Concetta CANTU 350.1.13.10 ity of [facility] 4.2.7.2.686 [place] 569.2946072 [facility] AND WILLARD [address] [facility] 2022-02-26 2022-02-26 Transition DEVANTE Alvarado 1.2.840.114 [id number] Univers 00:00:00 00:00:00 of Care Kristie [place] 350.1.13.10 i ty of [place].2.7.2.686 [place] [id number] [facility] [address] 2022-02-14 2022-02-23 Inpatient VICTORINO HORVATH [facility] [place] [id number] Univers 22:57:00 15:56:00 ity of [facility] 2022-02-14 2022-02-23 Hospital Vic Mcdonald 1.2.840. 114 [id number] Univers 22:57:00 15:56:00 Encounter Royer Brooke 350.1 .13.10 ity of Bret Martinez [facility] 4.2.7.2.686 [facility] lynn [phone] Victorino Alcaraz [address] 2022-02-20 2022-02-20 Anesthesia Heide Abraham 1.2.84 0.114 [id number] Univers 11:25:00 12:55:00 Event Huy Singh 350.1.13.10 ity of [facility] 4.2.7.2.686 Tim as [phone] [facility] [address] 2022-02-20 2022-02-20 Surgery IVAN Paul 1.2.969.529 9094 [id number] Univers 10:12:00 11:55:00 Sarah Beth CHRISTINE 350.1.13.10 ity of [facility] 4.2.7.2.686 Tim as 306.8993155 [facility] [address] 2022-02-14 2022-02-14 Travel 1.2.840.1 1.2.082.741 1210 [id number] Univers 00:00:00 00:00:00 23490.1.1 350.1.13.10 ity of 3.104.2.7 [place].3.698 [place] .3.813673 084.8 Medica l .[address] 2022-02-12 2022-02-12 Transition Zepeda, 1.2.840.2 [id number] Univers 00:00:00 00:00:00 of Care Kamila 34554.1.1 i ty of 3.104.2.7 [place] .3.740546 Medica l .[address] [place] 2022-02-06 2022-02-10 Inpatient X [facility] [id number] Univers 18:31:00 18:27:00 KENDALL ity of [facility] 2022-02-06 2022-02-10 Hospital Carlene Alcantara 1.2.840.1 [id number] Univers 18:31:00 18:27:00 Encounter Kaylee Argueta 86762.1.1 ity of Yosvany Connollylani 3.104.2.7 [place] .3.996885 Medica l .[address] [place] 2022-02-07 2022-02-07 Outpatient R NARENDRA [facility] 1041 [id number] Univers 13:00:00 13:00:00 SHAHBAZ saba o f [facility] 2022-02-06 2022-02-06 Travel 1.2.840.1 1.2.657.234 0935 [id number] Univers 00:00:00 00:00:00 41263.1.1 350.1.13.10 ity of 3.104.2.7 4.[place]7.3.698 [place] .3.837727 084.8 Medica l .[address] 2022-01-26 2022-01-26 Emergency X [facility] ERT [id number] Univers 17:06:00 23:29:00 JONATHAN ity [facility] 2022-01-26 2022-01-26 Emergency Randall Sands 1.2.840.1 [id number] Univers 17:06:00 23:29:00 Jonathan Sanford 49861.1.1 ity of 3.104.2.7 [place] .3.087193 Medica l .8 [place] 2022-01-26 2022-01-26 Travel 1.2.840.1 1.2.635.395 8878 [id number] Univers 00:00:00 00:00:00 92326.1.1 350.1.13.10 ity of 3.104.2.7 4.[place]7.3.698 [place] .3.113318 084.8 Medica l .[address] [place] 2022-01-19 2022-01-19 [facility] [id number] Univers 14:00:00 14:00:00 SHAHBAZ saba o f [facility] 2022-01-17 2022-01-17 Emergency X [facility] ERT [id number] Univers 04:52:00 08:20:00 JENNIFER ity [facility] 2022-01-17 2022-01-17 Emergency Jarod, 1.2.840.9 [id number] [id number] Univers 04:52:00 08:20:00 Jennifer 18930.1.1 ity of 3.104.2.7 [place] .3.182764 Medica l .[address] [place] 2022-01-17 2022-01-17 Travel 1.2.840.1 1.2.715.964 4845 5013 Univers 00:00:00 00:00:00 89458.1.1 350.1.13.10 ity of 3.104.2.7 4.[place].7.3.698 [place] .3.393934 084.8 Medica l .8 [place] 2022-01-16 2022-01-16 Transition Zepeda, 1.2.840.8 [id number] Univers 00:00:00 00:00:00 of Care Kamila 32356.1.1 i ty of 3.104.2.7 [place] .3.482549 Medica l .8 [place] 2022-01-09 2022-01-12 Inpatient X NARENDRA [facility] [place] [id number] Univers 20:31:00 21:18:00 COMPA ity of [facility] 2022-01-09 2022-01-12 [facility] Jennifer Olivera 1.2.840.1 [id number] Univers 20:31:00 21:18:00 Encounter Dontae Talley 11332.1.1 ity of [place] 3.104.2.7 [place] .3.449386 Medica l .8 [place] 2022-01-10 2022-01-10 Transition Zepeda, 1.2.840.4 [id number] Univers 00:00:00 00:00:00 of Care Kamila 16397.1.1 i ty of 3.104.2.7 [place] .3.283317 Medica l .8 [place] 2022-01-09 2022-01-09 Travel 1.2.840.1 1.2.217.520 [id number] Univers 00:00:00 00:00:00 76660.1.1 350.1.13.10 ity of 3.104.2.[place].698 [place] .3.945532 084.8 Medica l .8 [place] 2022-01-08 2022-01-08 Transition Zepeda, 1.2.840.2 [id number] Univers 00:00:00 00:00:00 of Care Kamila 81040.1.1 i ty of 3.104.2.7 [place] .3.925254 Medica l .8 [place] 2022-01-04 2022-01-06 Inpatient X GEO [facility] [id number] Univers 22:21:00 16:16:00 NEGAR ity of [facility] 2022-01-04 2022-01-06 Hospital Vadim Ferreira 1.2.840.4 [id number] Univers 22:21:00 16:16:00 Encounter Neagr Guaraddo 86875.1.1 ity of 3.104.2.7 [place] .3.370263 Medica l .8 [place] 2022-01-04 2022-01-04 Travel 1.2.840.1 1.2.600.425 2020 3062 Univers 00:00:00 00:00:00 98859.1.1 350.1.13.10 ity of 3.104.2.7 [place]3.698 [place] .3.402274 084.8 Medica l .8 [place] 2021-12-19 2021-12-22 Outpatient X JESSICAKERI [facility] [id number] Univers 18:25:00 19:30:00 MERCY ity of [facility] 2021-12-19 2021-12-22 Emergency Mario Johnson 1.2.840.5 [id number] Univers 18:25:00 19:30:00 JessicaKaylee saavedra 68356.1.1 ity of 3.104.2.7 [place] .3.307272 Medica l .8 [place] 2021-12-20 2021-12-20 Travel 1.2.840.1 1.2.450.359 9054 2645 Univers 00:00:00 00:00:00 58679.1.1 350.1.13.10 ity of 3.104.2.7 [place].3.698 [place] .3.450720 084.8 Medica l .8 [place] 2021-12-19 2021-12-19 Travel 1.2.840.1 1.2.759.161 4168 5045 Univers 00:00:00 00:00:00 55894.1.1 350.1.13.10 ity of 3.104.2.7 4.[place]7.3.698 [place] .3.232231 084.8 Medica l .8 [place] 2021-12-19 2021-12-19 Transition Christiano, 1.2.840.4 [id number] Univers 00:00:00 00:00:00 of Care Kristie M 36719.1.1 ity of 3.104.2.7 [place] .3.636361 Medica l .8 [place] 2021-12-14 2021-12-18 Inpatient X [facility] [id number] Univers 20:53:00 18:25:00 [facility] 2021-12-14 2021-12-18 [facility] Jennifer Olivera 1.2.840.1 [id number] Univers 20:53:00 18:25:00 Encounter Vito Mckeon 40316.1.1 ity of [place], Thomas 3.104.2.7 [place] Yvrose Burgera H .3.317684 [facility] .8 Branch 2021-12-14 2021-12-14 Travel 1.2.840.1 1.2.261.696 6170 [id number] Univers 00:00:00 00:00:00 77474.1.1 350.1.13.10 ity of 3.104.2.7 4.[place].3.698 [place] .3.214101 084.8 Medica l .8 [place] 2021-11-29 2021-11-29 Transition Zepeda, 1.2.840.8 [id number] Univers 00:00:00 00:00:00 of Care Kamila 54614.1.1 i ty of 3.104.2.7 [place] .3.323903 Medica l .8 [place] 2021-11-21 2021-11-28 Inpatient X YOLIS [facility] [id number] Univers 19:10:00 17:32:00 ADNAN ity of [facility] 2021-11-21 2021-11-28 [facility] Jennifer Olivera 1.2.840.1 [id number] Univers 19:10:00 17:32:00 Encounter Courtney Mendes 93025.1.1 ity of 3.104.2.7 [place] .3.990119 Medica l .8 [place] 2021-11-21 2021-11-21 Travel 1.2.840.1 1.2.434.044 [id number] Univers 00:00:00 00:00:00 71194.1.1 350.1.13.10 ity of 3.104.2.7 4.[place].3.698 [place] .3.920[place] 084.8 Medica l .8 [place] 2021-10-24 2021[facility]10[facility] [id number] Memoria 12:00:00 22:50:00 n [facility] 2021-10-24 2021-10-25 Observatio Critical access hospital 5510 [id number] Memoria 12:00:00 22:50:[address] 2021-10-24 2021-10-25 Outpatient U ALEXIS, [facility] 2098 [facility] 07:00:00 17:50:00 [facility] 2021-10-24 2021-10-25 Outpatient Alexis, [facility] 5510 [id number] 07:00:00 17:50:00 Edilberto Lee 2021-10-20 2021-10-20 Outpatient Alexis, [facility] 5510 [id number] 18:14:00 18:14:00 Edilberto Lyles 2021-10-15 2021-10-16 Emergency X [facility] ERT [id number] Univers 22:45:00 01:52:00 JONATHAN saba [facility] 2021-10-15 2021-10-16 Emergency [facility] [id number] [id number] Univers 22:45:00 01:52:00 Jonathan DURAN 350.1.13.10 [facility] 4.2.7.2.686 [facility] [id number] [facility] 084 [place] 2021-10-06 2021-10-10 Inpatient Critical access hospital [id number] Memoria 05:12:00 15:30:00 r Wilder [facility] 2021-10-06 2021-10-10 Inpatient Critical access hospital [id number] Memoria 05:12:00 15:30:[address] 2021-10-06 2021-10-10 Outpatient Danita, [facility] [id number] 00:12:00 10:30:00 Josemanuel Chan 2021-10-06 2021-10-06 [facility] [id number] Memoria 02:51:00 02:51:00 r Wilder [facility] 2021-10-06 2021-10-06 Emergency Critical access hospital [id number] Memoria 02:51:00 02:51:00 r Wilder [facility] 2021-10-06 2021-10-06 Outpatient Danita, [facility] [id number] 00:12:00 00:12:00 Josemanuel Chan 2021-10-05 2021-10-05 Outpatient Danita, [facility] [id number] 21:51:00 21:51:00 Josemanuel Chan 2021-09-28 2021-09-28 Emergency X RENATA, K [facility] ERT [id number] Univers 18:08:00 22:51:00 ity [facility] 2021-09-28 2021-09-28 Emergency Roger Neff [facility] 1.2.840.114 [id number] Univers 18:08:00 22:51:00 Cici DURAN 350.1.13.10 i ty [facility] 4.2.7.2.[place] [id number] [facility] [address] [place] 2021-08-09 2021-08-09 Transition DEVANTE Zepeda 1.2.840.114 [id number] Univers 00:00:00 00:00:00 of Care Kamila GILLESPIE 350.1.13.10 ity of [place] [id number] [facility] [address] 2021-08-02 2021-08-08 Inpatient X JUAN CARLOS [facility] [id number] Univers 19:07:00 19:39:00 CARMELITA ity [facility] 2021-08-02 2021-08-08 [facility] Carmelita Serna [facility] 1.2.840. 114 [id number] Univers 19:07:00 19:39:00 Encounter Kaylee Argueta RENEE 350.1.13.10 ity [facility] 4.2.7.2.686 [facility] [id number] [address] 2021-07-31 2021-07-31 Emergency X CACCANTON, [facility] ERT [id number] Univers 14:41:00 22:07:00 STEPHANIE [facility] 2021-07-31 2021-07-31 Emergency Cacace, [facility] 1.2.559.378 [id number] Univers 14:41:00 22:07:00 Stephanie DURAN 350.1.13.10 ity [facility] 4.2.7.2.686 [facility] [id number] [address] 2021-07-29 2021-07-29 Emergency X [facility] ERT [id number] Univers 14:49:00 21:33:00 [facility] 2021-07-29 2021-07-29 Emergency [facility] 1.2.358.025 [id number] Univers 14:49:00 21:33:00 Lynette DURAN 350.1.13.10 ity [facility] 4.2.7.2.686 [facility] [id number] [address] 2021-07-11 2021-07-11 Laboratory Only, Ang Db Test [facility] 1.2.8 40.114 [id number] Univers 18:00:00 18:15:00 Only Aracelis Lundberg 350.1.13.10 ity [facility] 4.2.7.2.686 Tim as VICENTA?BLEA [id number] [address] MEDICAL OFFICE BUILDING 2021-07-11 2021-07-11 Outpatient R [facility]IL[facility]JA [facility] [id number] Univers 18:00:00 18:00:00 ARACELIS saba [facility] 2021-07-05 2021-07-05 (TEL) [facility] [id number] Co mmon 00:00:00 00:00:00 [facility] 2021-07-04 2021-07-04 (ESTPT) STLMLC STLMLC [id number] Co mmon 00:00:00 00:00:00 Establishe Spi rit d Patient - [facility] 2021-06-07 2021-06-07 Emergency [facility] [id number] Univers 15:54:00 18:34:00 JONATHAN wandy [facility] 2021-06-07 2021-06-07 Emergency [facility] 1.2.711.414 [id number] Univers 15:54:00 18:34:00 Jonathan DURAN 350.1.13.10 i ty [facility] 4.2.7.2.686 [facility] [id number] [address] 2021-04-25 2021-04-25 (TEL) STLMLC STLMLC [id number] Co mmon 00:00:00 00:00:00 [facility] 2021-04-11 2021-04-11 (ESTPT) STLMLC STLMLC [id number] Co mmon 00:00:00 00:00:00 Establishe Spi rit d Patient - [facility] 2021-02-21 2021-02-21 (TEL) STLMLC STLMLC [id number] Co mmon 00:00:00 00:00:00 [facility] 2021-01-31 2021-01-31 (ESTPT) STLMLC STLMLC [id number] Co mmon 00:00:00 00:00:00 Establishe Spi rit d Patient - [facility] 2021-01-03 2021-01-03 OFFICE STLMLC STLMLC [id number] Co mmon 00:00:00 00:00:00 VISIT NEW [facility] it PT LEVEL 3 - [facility] 2020-11-20 2020-11-20 Emergency [facility] 1.2.840.114 [id number] 18:22:00 22:21:00 Madonna Duran 350.1.13.10 [place] 4.2.7.2.686 [place] [id number] [facility] 2020-11-20 2020-11-20 Emergency [facility] 1.2.840.114 [id number] Univers 18:22:00 22:21:00 Kimberlycitlaly [place] 350.1.13.10 ity [facility] 4.2.7.2.686 [facility] [id number] [place] [address] [place] 2020-11-20 2020-11-20 Emergency X NICKY [facility] ERT [id number] Univers 18:22:00 18:22:00 MADONNA ity [facility] 2019-03-02 2019-03-04 Phone nullFlavo MNA [id number] Memoria 16:11:26 04:59:59 Message r Neurosurger 08 l y [facility] 2019-03-02 2019-03-04 Phone nullFlavo MNA [id number] Memoria 16:11:26 04:59:59 Message r Neurosurger 08 l y [facility] 2019-03-02 2019-03-03 Outpatient MHMISCHER MHMISCHER [id number] 11:11:26 23:59:59 2019-02-10 2019-02-12 Phone nullFlavo MNA [id number] Memoria 16:16:47 04:59:59 Message r Neurosurger 07 l y [facility] 2019-02-10 2019-02-12 Phone nullFlavo MNA [id number] Memoria 16:16:47 04:59:59 Message r Neurosurger 07 l y [facility] 2019-02-10 2019-02-11 Outpatient MHMISCHER MHMISCHER [id number] 11:16:47 23:59:59 2019-01-26 2019-01-28 Phone nullFlavo MNA [id number] Memoria 15:52:03 04:59:59 Message r Neurosurger 06 l y [facility] 2019-01-26 2019-01-28 Phone nullFlavo MNA [id number] Memoria 15:52:03 04:59:59 Message r Neurosurger 06 l y [facility] 2019-01-26 2019-01-27 Outpatient MHMISCHER MHMISCHER [id number] 10:52:03 23:59:59 2019-01-01 2019-01-03 Phone nullFlavo MNA [id number] 55 Memoria 18:55:03 04:59:59 Message r Neurosurger 05 l y [facility] 2019-01-01 2019-01-03 Phone nullFlavo MNA [id number] Memoria 18:55:03 04:59:59 Message r Neurosurger 05 l y [facility] 2019-01-01 2019-01-02 [id number] 13:55:03 23:59:59 2018-05-22 2018-05-22 Emergency nullFlavo [facility] [id number] Memoria 10:12:00 18:24:[address] 2018-05-22 2018-05-22 Emergency nullFlavo [facility] [id number] Memoria 10:12:00 18:24:[address] 2018-05-22 2018-05-22 Outpatient Neal [facility] [id number] 04:12:00 12:24:00 Zahra Ca 2018-02-18 2018-02-18 Out[facility] [id number] Common 11:15:00 11:15:00 [address] [place] [address] [facility] 2018-01-27 2018-01-27 Out[facility] 14 [id number] Common 11:30:00 11:30:00 [place] [address] [facility] 2018-01-03 2018-01-03 Out[facility] [id number] Common 15:41:00 15:41:00 [place] [address] [facility] 2017-12-23 2017-12-23 Out[facility] 14 [id number] Common 15:42:00 15:42:00 [place] [address] [facility] 2017-12-17 2017-12-17 Out[facility] 13 [id number] Common 11:00:00 11:00:00 [place] [address] [facility] 2017-11-14 2017-11-19 Inpatient nullFlavo [facility] [id number] Memoria 22:40:00 17:28:[address] 2017-11-14 2017-11-19 Inpatient Critical access hospital [id number] Memoria 22:40:00 17:28:[address] 2017-11-14 2017-11-19 Outpatient Ruth Quesada [facility] [id number] 17:40:00 12:28:00 Percy 23 Results Test Description Test Time Test Comments Results Result Comments Source COMP. METABOLIC PANEL (50440) 2022-11-09 21:13:07 Test Item Value Reference Range Interpretation Comme nts NA (test code = 7259825151) 131 mmol/L 135-145 L K (test code = 5211950552) 4.8 mmol/L 3.5-5.0 CL (test code = 3115290854) 100 mmol/L 98-108 CO2 TOTAL (test code = 0541194960) 22 mmol/L 23-31 L AGAP (test code = 0834160200) 9 2-16 BUN (test code = 4367559128) 14 mg/dL 7-23 GLUCOSE (test code = 6350791297) 396 mg/dL 70-110 H CREATININE (test code = 0.63 mg/dL 0.60-1.25 6798822573) TOTAL BILI (test code = 0.7 mg/dL 0.1-1.5 3648688564) CALCIUM (test code = 7712635682) 9.7 mg/dL 8.6-10.6 T PROTEIN (test code = 6267311599) 7.8 g/dL 6.3-8.2 ALBUMIN (test code = 1485838208) 4.3 g/dL 3.5-5.0 ALK PHOS (test code = 5635689651) 146 U/L 34-122 H ALTv (test code = 1742-6) 21 U/L 5-50 AST(SGOT) (test code = 5291272797) 15 U/L 13-40 eGFR (test code = 5757692173) 143.3 mL/min/1.73m2 ARPITA (test code = ARPITA) Association [...] tests). Lab Interpretation (test code = Abnormal 00992-5) [facility] WITH [id number] 21:09:28 Test Item Value Reference Range Interpretation Comments WBC (test code = 12.68 See_Comment H [Automated 7480-2) message] The sy stem which generated this result transmitted reference range : 4.20 - 10.70 10*3/?L. The reference range was not used to interpret this result as normal/abnormal . RBC (test code = 5.46 See_Comment [Automated 569-8) message] The sy stem which generated this result transmitted reference range : 4.26 - 5.52 10*6/?L. The reference range was not used to interpret this result as normal/abnormal . HGB (test code = 16.2 g/dL 12.2-16.4 718-7) HCT (test code = 46.5 % 38.4-49.3 4544-3) MCV (test code = 85.2 fL 81.7-95.6 787-2) MCH (test code = 29.7 pg 26.1-32.7 785-6) MCHC (test code = 34.8 g/dL 31.2-35.0 786-4) RDW-SD (test code = 39.9 fL 38.5-51.6 80987-0) RDW-CV (test code = 13.1 % 12.1-15.4 788-0) PLT (test code = 444 See_Comment H [Automated 777-3) message] The sy stem which generated this result transmitted reference range : 150 - 328 10*3/ ?L. The reference r boubacar was not used to interpret this result as normal/abnormal . MPV (test code = 10.0 fL 9.8-13.0 17024-2) NRBC/100 WBC (test 0.0 See_Comment [Automat ed code = 1740653431) message] The system which generated this result transmitted reference range : 0.0 - 10.0 /100 WBCs. The refer ence range was not u sed to interpret th is result as normal/abnormal . NRBC x10^3 (test code See_Comment [Auto mated = 1768081562) message] The s ystem which generated this result transmitted reference range : 10*3/?L. The reference range was not used to interpret this result as normal/abnormal . GRAN MAT (NEUT) % 76.0 % (test code = 770-8) IMM GRAN % (test code 0.30 % = 7297487778) LYMPH % (test code = 14.0 % 736-9) MONO % (test code = 7.6 % 5905-5) EOS % (test code = 1.8 % 713-8) BASO % (test code = 0.3 % 706-2) GRAN MAT x10^3(ANC) 9.63 10*3/uL 1.99-6.95 H (test code = 9108198798) IMM GRAN x10^3 (test 0.04 10*3/uL 0.00-0.06 code = 6472188888) LYMPH x10^3 (test code 1.77 10*3/uL 1.09-3.23 = 731-0) MONO x10^3 (test code 0.97 10*3/uL 0.36-1.02 = 742-7) EOS x10^3 (test code = 0.23 10*3/uL 0.06-0.53 711-2) BASO x10^3 (test code 0.04 10*3/uL 0.01-0.09 = 704-7) Lab Interpretation Abnormal (test code = 37372-9) [facility] GLUCOSE(AGE >30DAYS)2022-11-09 20:33:00 Test Item Value Reference Range Interpretation Comments POCT Glu (age>30days) (test code = 429 mg/dL 70-110 A 3342) Lab Interpretation (test code = Abnormal 63732-3) [facility] GLUCOSE (AUTOMATED)2022-10-31 22:47:23 Test Item Value Reference Range Interpretation Comments POCT GLU (test code = 7309838733) 352 mg/dL 70-110 H Lab Interpretation (test code = Abnormal 05144-2) [facility] GLUCOSE (AUTOMATED)2022-10-31 19:38:18 Test Item Value Reference Range Interpretation Comments POCT GLU (test code = 7404045496) 452 mg/dL 70-110 HH Lab Interpretation (test code = Abnormal 92160-4) [facility] GLUCOSE (AUTOMATED)2022-10-22 02:41:30 Test Item Value Reference Range Interpretation Comments POCT GLU (test code = 8818064788) 379 mg/dL 70-110 H Lab Interpretation (test code = Abnormal 25815-9) [facility]. METABOLIC PANEL (27588)2022-10-22 00:29:35 Test Item Value Reference Range Interpretation Comments NA (test code = 133 mmol/L 135-145 L 8044090316) K (test code = 3.5 mmol/L 3.5-5.0 0702162701) CL (test code = 97 mmol/L 98-108 L 9058091082) CO2 TOTAL (test code = 26 mmol/L 23-31 2237610955) AGAP (test code = 10 2-16 7720730545) BUN (test code = 7 mg/dL 7-23 9472811185) GLUCOSE (test code = 468 mg/dL 70-110 HH 3060057903) CREATININE (test code = 0.58 mg/dL 0.60-1.25 L 2592422137) TOTAL BILI (test code = 0.6 mg/dL 0.1-1.1 1219490104) CALCIUM (test code = 9.5 mg/dL 8.6-10.6 2812560861) T PROTEIN (test code = 7.6 g/dL 6.3-8.2 9081103328) ALBUMIN (test code = 4.2 g/dL 3.5-5.0 0836228914) ALK PHOS (test code = 197 U/L 34-122 H 1916220728) ALTv (test code = 56 U/L 5-50 H 1742-6) AST(SGOT) (test code = 16 U/L 13-40 3733962916) eGFR (test code = 157.7 mL/min/1.73m2 7201720142) ARPITA (test code = ARPITA) Association of [...] tests). Lab Interpretation Abnormal (test code = 71103-0) [facility] + Lactic [id number] 23:54:19 Test Item Value Reference Range Interpretation Comments PH (test code = 2) 7.37 7.35-7.45 PCO2 (test code = 47 See_Comment H [Automate d 3860681650) message] The sy stem which generated this result transmitted reference range : 35 - 45 mmHg. The reference range was not used to interpret this result as normal/abnormal . PO2 (test code = 25 See_Comment LL [Automated 4149674041) message] The sy stem which generated this result transmitted reference range : 80 - 100 mmHg. The reference range was not used to interpret this result as normal/abnormal . HCO3 (test code = 26 See_Comment [Automate d 5039698907) message] The sy stem which generated this result transmitted reference range : 22 - 26 mEq/L. The reference range was not used to interpret this result as normal/abnormal . BE (test code = 0.3 See_Comment [Automated 0912064298) message] The sy stem which generated this result transmitted reference range : -3.0 - 3.0 mEq/ L. The reference r boubacar was not used to interpret this result as normal/abnormal . THB (test code = 18.4 g/dL 13.5-18.0 H 9088340225) %O2HB (test code = 51.3 % 94.0-99.0 L 6515639231) %COHB ART (test code = 4.3 % 0.0-1.5 H 1891527273) %METHB ART (test code = 0.0 % 0.4-1.5 L 4902676744) VOL%O2 ART (test code = 13.2 % 15.0-23.0 L 4014210624) NA (test code = 136 mmol/L 135-145 0113135628) K+ (test code = 3.7 mmol/L 3.5-5.0 8041644420) AC CA IONZ (test code = 4.70 mg/dL 4.50-5.30 8909404133) GLUCOSE (test code = 471 mg/dL 70-110 HH 2236347976) LACTIC ACID (test code 2.17 mmol/L 0.50-2.20 = 5540402085) Lab Interpretation Abnormal (test code = 49096-6) [facility] WITH [id number] 23:52:19 Test Item Value Reference Range Interpretation Comments WBC (test code = 9.50 See_Comment [Automated 6690-2) message] The sy stem which generated this result transmitted reference range : 4.20 - 10.70 10*3/?L. The reference range was not used to interpret this result as normal/abnormal . RBC (test code = 5.27 See_Comment [Automated 789-8) message] The sy stem which generated this result transmitted reference range : 4.26 - 5.52 10*6/?L. The reference range was not used to interpret this result as normal/abnormal . HGB (test code = 15.9 g/dL 12.2-16.4 718-7) HCT (test code = 46.1 % 38.4-49.3 4544-3) MCV (test code = 87.5 fL 81.7-95.6 787-2) MCH (test code = 30.2 pg 26.1-32.7 785-6) MCHC (test code = 34.5 g/dL 31.2-35.0 786-4) RDW-SD (test code = 41.8 fL 38.5-51.6 21298-5) RDW-CV (test code = 13.2 % 12.1-15.4 788-0) PLT (test code = 369 See_Comment H [Automated 777-3) message] The sy stem which generated this result transmitted reference range : 150 - 328 10*3/ ?L. The reference r boubacar was not used to interpret this result as normal/abnormal . MPV (test code = 10.3 fL 9.8-13.0 94456-1) NRBC/100 WBC (test 0.0 See_Comment [Automat ed code = 4216298893) message] The system which generated this result transmitted reference range : 0.0 - 10.0 /100 WBCs. The refer ence range was not u sed to interpret th is result as normal/abnormal . NRBC x10^3 (test code See_Comment [Auto mated = 1306354227) message] The s ystem which generated this result transmitted reference range : 10*3/?L. The reference range was not used to interpret this result as normal/abnormal . GRAN MAT (NEUT) % 65.5 % (test code = 770-8) IMM GRAN % (test code 0.70 % = 0671775846) LYMPH % (test code = 24.9 % 736-9) MONO % (test code = 7.8 % 5905-5) EOS % (test code = 0.8 % 713-8) BASO % (test code = 0.3 % 706-2) GRAN MAT x10^3(ANC) 6.21 10*3/uL 1.99-6.95 (test code = 3677249055) IMM GRAN x10^3 (test 0.07 10*3/uL 0.00-0.06 H code = 5907768894) LYMPH x10^3 (test code 2.37 10*3/uL 1.09-3.23 = 731-0) MONO x10^3 (test code 0.74 10*3/uL 0.36-1.02 = 742-7) EOS x10^3 (test code = 0.08 10*3/uL 0.06-0.53 711-2) BASO x10^3 (test code 0.03 10*3/uL 0.01-0.09 = 704-7) Lab Interpretation Abnormal (test code = 82629-0) [facility] 00:15:39 Test Item Value Reference Range Interpretation Comments POCT GLU (test code = 5124240633) 353 mg/dL 70-110 H Lab Interpretation (test code = Abnormal 69763-8) [facility] (76817)2022-10-05 22:59:53 Test Item Value Reference Range Interpretation Comments NA (test code = 137 mmol/L 135-145 4133065505) K (test code = 5.1 mmol/L 3.5-5.0 H 1087783388) CL (test code = 101 mmol/L 98-108 1162629975) CO2 TOTAL (test code = 23 mmol/L 23-31 4236029529) AGAP (test code = 13 2-16 3682568173) BUN (test code = 15 mg/dL 7-23 0189135779) GLUCOSE (test code = 455 mg/dL 70-110 HH 3982790785) CREATININE (test code = 0.51 mg/dL 0.60-1.25 L 3033919432) TOTAL BILI (test code = 0.7 mg/dL 0.1-1.4 6908365228) CALCIUM (test code = 9.8 mg/dL 8.6-10.6 8102253926) T PROTEIN (test code = 8.1 g/dL 6.3-8.2 3143841877) ALBUMIN (test code = 4.3 g/dL 3.5-5.0 8739496343) ALK PHOS (test code = 161 U/L 34-122 H 2516931264) ALTv (test code = 34 U/L 5-50 2-6) AST(SGOT) (test code = 26 U/L 13-40 5154028731) eGFR (test code = 182.9 mL/min/1.73m2 2500532842) ARPITA (test code = ARPITA) Association of [...] tests). Lab Interpretation Abnormal (test code = 80701-8) [facility] 22:52:58 Test Item Value Reference Range Interpretation Comments MAGNESIUM (test code = 7846790610) 1.7 mg/dL 1.7-2.4 Lab Interpretation (test code = Normal 00681-0) [facility] 22:52:38 Test Item Value Reference Range Interpretation Comments LIPASE (test code = 0719127012) 106 U/L 0-220 Lab Interpretation (test code = Normal 14639-2) [facility]2022-10-05 22:37:17 Test Item Value Reference Range Interpretation Comments POCT GLU (test code = 1885833797) 425 mg/dL 70-110 H Lab Interpretation (test code = Abnormal 43649-9) [facility] Whole [id number] 22:26:01 Test Item Value Reference Range Interpretation Comments LACTIC ACID (test code = 2.67 mmol/L 0.50-2.20 H 4471397977) Lab Interpretation (test code = Abnormal 52842-0) [facility] WITH [id number] 22:24:50 Test Item Value Reference Range Interpretation Comments WBC (test code = 12.05 See_Comment H [Automated 4890-2) message] The sy stem which generated this result transmitted reference range : 4.20 - 10.70 10*3/?L. The reference range was not used to interpret this result as normal/abnormal . RBC (test code = 5.14 See_Comment [Automated 159-8) message] The sy stem which generated this result transmitted reference range : 4.26 - 5.52 10*6/?L. The reference range was not used to interpret this result as normal/abnormal . HGB (test code = 15.4 g/dL 12.2-16.4 718-7) HCT (test code = 45.6 % 38.4-49.3 4544-3) MCV (test code = 88.7 fL 81.7-95.6 787-2) MCH (test code = 30.0 pg 26.1-32.7 785-6) MCHC (test code = 33.8 g/dL 31.2-35.0 786-4) RDW-SD (test code = 45.1 fL 38.5-51.6 01578-6) RDW-CV (test code = 14.0 % 12.1-15.4 788-0) PLT (test code = 518 See_Comment H [Automated 777-3) message] The sy stem which generated this result transmitted reference range : 150 - 328 10*3/ ?L. The reference r boubacar was not used to interpret this result as normal/abnormal . MPV (test code = 10.2 fL 9.8-13.0 87706-4) NRBC/100 WBC (test 0.0 See_Comment [Automat ed code = 5115988038) message] The system which generated this result transmitted reference range : 0.0 - 10.0 /100 WBCs. The refer ence range was not u sed to interpret th is result as normal/abnormal . NRBC x10^3 (test code See_Comment [Auto mated = 4554269354) message] The s ystem which generated this result transmitted reference range : 10*3/?L. The reference range was not used to interpret this result as normal/abnormal . GRAN MAT (NEUT) % 76.2 % (test code = 770-8) IMM GRAN % (test code 0.50 % = [id number]) LYMPH % (test code = 16.8 % 736-9) MONO % (test code = 5.2 % 5905-5) EOS % (test code = 1.0 % 713-8) BASO % (test code = 0.3 % 706-2) GRAN MAT x10^3(ANC) 9.18 10*3/uL 1.99-6.95 H (test code = [id number]) IMM GRAN x10^3 (test 0.06 10*3/uL 0.00-0.06 code = [id number]) LYMPH x10^3 (test code 2.02 10*3/uL 1.09-3.23 = 731-0) MONO x10^3 (test code 0.63 10*3/uL 0.36-1.02 = 742-7) EOS x10^3 (test code = 0.12 10*3/uL 0.06-0.53 711-2) BASO x10^3 (test code 0.04 10*3/uL 0.01-0.09 = 704-7) Lab Interpretation Abnormal (test code = 00697-2) [facility] GLU[facility]SE (AUTOMATED)2022-09-06 18:23:19 Test Item Value Reference Range Interpretation Comments POCT GLU (test code = [id number]) 352 mg/dL 70-110 H Lab Interpretation (test code = Abnormal 26983-0) [facility] GLUCOSE (AUTOMATED)2022-09-06 18:23:19 Test Item Value Reference Range Interpretation Comments POCT GLU (test code = [id number]) 352 mg/dL 70-110 H Lab Interpretation (test code = Abnormal 84548-5) [facility] GLU[facility]SE (AUTOMATED)2022-09-06 13:43:13 Test Item Value Reference Range Interpretation Comments POCT GLU (test code = 7842701643) 293 mg/dL 70-110 H Lab Interpretation (test code = Abnormal 85464-6) [facility] GLUCOSE (AUTOMATED)2022-09-06 13:43:13 Test Item Value Reference Range Interpretation Comments POCT GLU (test code = 6561984191) 293 mg/dL 70-110 H Lab Interpretation (test code = Abnormal 02930-2) [facility] GLUCOSE (AUTOMATED)2022-09-06 02:50:04 Test Item Value Reference Range Interpretation Comments POCT GLU (test code = 0692326595) 259 mg/dL 70-110 H Lab Interpretation (test code = Abnormal 59943-3) [facility] GLUCOSE (AUTOMATED)2022-09-06 02:50:04 Test Item Value Reference Range Interpretation Comments POCT GLU (test code = 1919101242) 259 mg/dL 70-110 H Lab Interpretation (test code = Abnormal 84484-9) [facility] GLUCOSE (AUTOMATED)2022-09-05 22:58:25 Test Item Value Reference Range Interpretation Comments POCT GLU (test code = 9901313306) 170 mg/dL 70-110 H Lab Interpretation (test code = Abnormal 95442-4) [facility] 22:58:25 Test Item Value Reference Range Interpretation Comments POCT GLU (test code = 6083595922) 170 mg/dL 70-110 H Lab Interpretation (test code = Abnormal 58008-9) [facility] 21:27:00 Test Item Value Reference Range Interpretation Comments POCT GLU (test code = 5770739222) 179 mg/dL 70-110 H Lab Interpretation (test code = Abnormal 69420-8) [facility] 21:27:00 Test Item Value Reference Range Interpretation Comments POCT GLU (test code = 4060196592) 179 mg/dL 70-110 H Lab Interpretation (test code = Abnormal 72892-4) [facility] GLUCOSE (AUTOMATED)2022-09-05 18:18:50 Test Item Value Reference Range Interpretation Comments POCT GLU (test code = 6543980075) 247 mg/dL 70-110 H Lab Interpretation (test code = Abnormal 44868-1) [facility] 18:18:50 Test Item Value Reference Range Interpretation Comments POCT GLU (test code = 9424873483) 247 mg/dL 70-110 H Lab Interpretation (test code = Abnormal 82871-2) [facility] 15:21:08 Test Item Value Reference Range Interpretation Comments POCT GLU (test code = 1716426816) 235 mg/dL 70-110 H Lab Interpretation (test code = Abnormal 96659-6) [facility] 15:21:08 Test Item Value Reference Range Interpretation Comments POCT GLU (test code = 4663698932) 235 mg/dL 70-110 H Lab Interpretation (test code = Abnormal 70454-2) [facility] 03:11:07 Test Item Value Reference Range Interpretation Comments POCT GLU (test code = 6224791949) 263 mg/dL 70-110 H Lab Interpretation (test code = Abnormal 02783-8) [facility]:07 Test Item Value Reference Range Interpretation Comments POCT GLU (test code = 0420860153) 263 mg/dL 70-110 H Lab Interpretation (test code = Abnormal 97912-8) [facility] GLUCOSE (AUTOMATED)2022-09-04 22:43:48 Test Item Value Reference Range Interpretation Comments POCT GLU (test code = 7125534934) 262 mg/dL 70-110 H Lab Interpretation (test code = Abnormal 43172-3) [facility] GLUCOSE (AUTOMATED)2022-09-04 22:43:48 Test Item Value Reference Range Interpretation Comments POCT GLU (test code = 8606102252) 262 mg/dL 70-110 H Lab Interpretation (test code = Abnormal 64041-1) [facility] GLUCOSE (AUTOMATED)2022-09-04 17:36:05 Test Item Value Reference Range Interpretation Comments POCT GLU (test code = 4872258630) 365 mg/dL 70-110 H Lab Interpretation (test code = Abnormal 54082-6) [facility] GLUCOSE (AUTOMATED)2022-09-04 17:36:05 Test Item Value Reference Range Interpretation Comments POCT GLU (test code = 4738404939) 365 mg/dL 70-110 H Lab Interpretation (test code = Abnormal 19091-1) [facility] GLUCOSE (AUTOMATED)2022-09-04 16:43:12 Test Item Value Reference Range Interpretation Comments POCT GLU (test code = 5083188734) 408 mg/dL 70-110 H Lab Interpretation (test code = Abnormal 59366-0) [facility] GLUCOSE (AUTOMATED)2022-09-04 16:43:12 Test Item Value Reference Range Interpretation Comments POCT GLU (test code = 6876236859) 408 mg/dL 70-110 H Lab Interpretation (test code = Abnormal 41993-6) [facility] GLUCOSE (AUTOMATED)2022-09-04 13:20:30 Test Item Value Reference Range Interpretation Comments POCT GLU (test code = 4886098340) 359 mg/dL 70-110 H Lab Interpretation (test code = Abnormal 84083-4) [facility] GLUCOSE (AUTOMATED)2022-09-04 13:20:30 Test Item Value Reference Range Interpretation Comments POCT GLU (test code = 3408332462) 359 mg/dL 70-110 H Lab Interpretation (test code = Abnormal 75770-0) [facility] GLUCOSE (AUTOMATED)2022-09-04 08:27:11 Test Item Value Reference Range Interpretation Comments POCT GLU (test code = 7487474304) 312 mg/dL 70-110 H Lab Interpretation (test code = Abnormal 31744-6) [facility] GLUCOSE (AUTOMATED)2022-09-04 08:27:11 Test Item Value Reference Range Interpretation Comments POCT GLU (test code = 2020938624) 312 mg/dL 70-110 H Lab Interpretation (test code = Abnormal 07785-8) [facility] GLUCOSE (AUTOMATED)2022-09-04 06:47:03 Test Item Value Reference Range Interpretation Comments POCT GLU (test code = 3887968458) 326 mg/dL 70-110 H Lab Interpretation (test code = Abnormal 50474-3) [facility] GLUCOSE (AUTOMATED)2022-09-04 06:47:03 Test Item Value Reference Range Interpretation Comments POCT GLU (test code = 9805830856) 326 mg/dL 70-110 H Lab Interpretation (test code = Abnormal 76357-7) [facility] METABOLIC PANEL (NA, K, CL, CO2, GLUCOSE, BUN, CREATININE, CA)2022-09-04 06:26:05 Test Item Value Reference Range Interpretation Comments NA (test code = 132 mmol/L 135-145 L 4951263919) K (test code = 4.4 mmol/L 3.5-5.0 7726880154) CL (test code = 101 mmol/L 98-108 8977979546) CO2 TOTAL (test code = 17 mmol/L 23-31 L 0121668256) AGAP (test code = 14 2-16 7972290166) BUN (test code = 11 mg/dL 7-23 5643627689) GLUCOSE (test code = 346 mg/dL 70-110 H 5504175904) CREATININE (test code = 0.54 mg/dL 0.60-1.25 L 2643684467) CALCIUM (test code = 8.5 mg/dL 8.6-10.6 L 1366676473) eGFR (test code = 171.2 mL/min/1.73m2 8003003129) ARPITA (test code = ARPITA) Association of [...] tests). Lab Interpretation Abnormal (test code = 60989-9) [facility] METABOLIC PANEL (NA, K, CL, CO2, GLUCOSE, BUN, CREATININE, CA)2022-09-04 06:26:05 Test Item Value Reference Range Interpretation Comments NA (test code = 132 mmol/L 135-145 L 1100059517) K (test code = 4.4 mmol/L 3.5-5.0 5842542864) CL (test code = 101 mmol/L 98-108 1898959242) CO2 TOTAL (test code = 17 mmol/L 23-31 L 5770214475) AGAP (test code = 14 2-16 9896838363) BUN (test code = 11 mg/dL 7-23 9580210317) GLUCOSE (test code = 346 mg/dL 70-110 H 6820888518) CREATININE (test code = 0.54 mg/dL 0.60-1.25 L 3407345632) CALCIUM (test code = 8.5 mg/dL 8.6-10.6 L 3075717623) eGFR (test code = 171.2 mL/min/1.73m2 2650321270) ARPITA (test code = ARPITA) Association of [...] tests). Lab Interpretation Abnormal (test code = 33954-2) [facility] GLUCOSE (AUTOMATED)2022-09-04 05:38:22 Test Item Value Reference Range Interpretation Comments POCT GLU (test code = 9560524369) 414 mg/dL 70-110 H Lab Interpretation (test code = Abnormal 42735-3) [facility] GLUCOSE (AUTOMATED)2022-09-04 05:38:22 Test Item Value Reference Range Interpretation Comments POCT GLU (test code = 8770891095) 414 mg/dL 70-110 H Lab Interpretation (test code = Abnormal 99474-9) [facility] METABOLIC PANEL (NA, K, CL, CO2, GLUCOSE, BUN, CREATININE, CA)2022-09-04 03:58:07 Test Item Value Reference Range Interpretation Comments NA (test code = 133 mmol/L 135-145 L 3412744511) K (test code = 4.7 mmol/L 3.5-5.0 6927336097) CL (test code = 100 mmol/L 98-108 4438961964) CO2 TOTAL (test code = 16 mmol/L 23-31 L 9952263303) AGAP (test code = 17 2-16 H 4053543894) BUN (test code = 12 mg/dL 7-23 3601207729) GLUCOSE (test code = 407 mg/dL 70-110 H 4768386602) CREATININE (test code = 0.55 mg/dL 0.60-1.25 L 7139103759) CALCIUM (test code = 9.2 mg/dL 8.6-10.6 1406044163) eGFR (test code = 167.6 mL/min/1.73m2 3346276346) ARPITA (test code = ARPITA) Association of [...] tests). Lab Interpretation Abnormal (test code = 48427-6) [facility] METABOLIC PANEL (NA, K, CL, CO2, GLUCOSE, BUN, CREATININE, CA)2022-09-04 03:58:07 Test Item Value Reference Range Interpretation Comments NA (test code = 133 mmol/L 135-145 L 0409520343) K (test code = 4.7 mmol/L 3.5-5.0 6303384269) CL (test code = 100 mmol/L 98-108 3172186280) CO2 TOTAL (test code = 16 mmol/L 23-31 L 0265334084) AGAP (test code = 17 2-16 H 3906911358) BUN (test code = 12 mg/dL 7-23 6624155775) GLUCOSE (test code = 407 mg/dL 70-110 H 5634136938) CREATININE (test code = 0.55 mg/dL 0.60-1.25 L 8599247916) CALCIUM (test code = 9.2 mg/dL 8.6-10.6 0016744349) eGFR (test code = 167.6 mL/min/1.73m2 1590690865) ARPITA (test code = ARPITA) Association of [...] tests). Lab Interpretation Abnormal (test code = 12186-8) [facility] WITH [id number] 03:21:04 Test Item Value Reference Range Interpretation Comments WBC (test code = 12.21 See_Comment H [Automated 5290-2) message] The sy stem which generated this result transmitted reference range : 4.20 - 10.70 10*3/?L. The reference range was not used to interpret this result as normal/abnormal . RBC (test code = 5.59 See_Comment H [Automated 019-8) message] The sy stem which generated this result transmitted reference range : 4.26 - 5.52 10*6/?L. The reference range was not used to interpret this result as normal/abnormal . HGB (test code = 16.3 g/dL 12.2-16.4 718-7) HCT (test code = 47.2 % 38.4-49.3 4544-3) MCV (test code = 84.4 fL 81.7-95.6 787-2) MCH (test code = 29.2 pg 26.1-32.7 785-6) MCHC (test code = 34.5 g/dL 31.2-35.0 786-4) RDW-SD (test code = 45.5 fL 38.5-51.6 94851-4) RDW-CV (test code = 15.1 % 12.1-15.4 788-0) PLT (test code = 344 See_Comment H [Automated 777-3) message] The sy stem which generated this result transmitted reference range : 150 - 328 10*3/ ?L. The reference r boubacar was not used to interpret this result as normal/abnormal . MPV (test code = 10.5 fL 9.8-13.0 44614-5) NRBC/100 WBC (test 0.0 See_Comment [Automat ed code = 0789039629) message] The system which generated this result transmitted reference range : 0.0 - 10.0 /100 WBCs. The refer ence range was not u sed to interpret th is result as normal/abnormal . NRBC x10^3 (test code See_Comment [Auto mated = 7700148351) message] The s ystem which generated this result transmitted reference range : 10*3/?L. The reference range was not used to interpret this result as normal/abnormal . GRAN MAT (NEUT) % 73.0 % (test code = 770-8) IMM GRAN % (test code 0.70 % = 4218995071) LYMPH % (test code = 19.6 % 736-9) MONO % (test code = 6.1 % 5905-5) EOS % (test code = 0.3 % 713-8) BASO % (test code = 0.3 % 706-2) GRAN MAT x10^3(ANC) 8.91 10*3/uL 1.99-6.95 H (test code = 0625075527) IMM GRAN x10^3 (test 0.09 10*3/uL 0.00-0.06 H code = 2439409002) LYMPH x10^3 (test code 2.39 10*3/uL 1.09-3.23 = 731-0) MONO x10^3 (test code 0.74 10*3/uL 0.36-1.02 = 742-7) EOS x10^3 (test code = 0.04 10*3/uL 0.06-0.53 L 711-2) BASO x10^3 (test code 0.04 10*3/uL 0.01-0.09 = 704-7) Lab Interpretation Abnormal (test code = 89853-9) [facility] WITH [id number] 03:21:04 Test Item Value Reference Range Interpretation Comments WBC (test code = 12.21 See_Comment H [Automated 6690-2) message] The sy stem which generated this result transmitted reference range : 4.20 - 10.70 10*3/?L. The reference range was not used to interpret this result as normal/abnormal . RBC (test code = 5.59 See_Comment H [Automated 789-8) message] The sy stem which generated this result transmitted reference range : 4.26 - 5.52 10*6/?L. The reference range was not used to interpret this result as normal/abnormal . HGB (test code = 16.3 g/dL 12.2-16.4 718-7) HCT (test code = 47.2 % 38.4-49.3 4544-3) MCV (test code = 84.4 fL 81.7-95.6 787-2) MCH (test code = 29.2 pg 26.1-32.7 785-6) MCHC (test code = 34.5 g/dL 31.2-35.0 786-4) RDW-SD (test code = 45.5 fL 38.5-51.6 84340-6) RDW-CV (test code = 15.1 % 12.1-15.4 788-0) PLT (test code = 344 See_Comment H [Automated 777-3) message] The sy stem which generated this result transmitted reference range : 150 - 328 10*3/ ?L. The reference r boubacar was not used to interpret this result as normal/abnormal . MPV (test code = 10.5 fL 9.8-13.0 72882-7) NRBC/100 WBC (test 0.0 See_Comment [Automat ed code = 5079437039) message] The system which generated this result transmitted reference range : 0.0 - 10.0 /100 WBCs. The refer ence range was not u sed to interpret th is result as normal/abnormal . NRBC x10^3 (test code See_Comment [Auto mated = 3220926468) message] The s ystem which generated this result transmitted reference range : 10*3/?L. The reference range was not used to interpret this result as normal/abnormal . GRAN MAT (NEUT) % 73.0 % (test code = 770-8) IMM GRAN % (test code 0.70 % = 8753929585) LYMPH % (test code = 19.6 % 736-9) MONO % (test code = 6.1 % 5905-5) EOS % (test code = 0.3 % 713-8) BASO % (test code = 0.3 % 706-2) GRAN MAT x10^3(ANC) 8.91 10*3/uL 1.99-6.95 H (test code = 0375591717) IMM GRAN x10^3 (test 0.09 10*3/uL 0.00-0.06 H code = 7711769884) LYMPH x10^3 (test code 2.39 10*3/uL 1.09-3.23 = 731-0) MONO x10^3 (test code 0.74 10*3/uL 0.36-1.02 = 742-7) EOS x10^3 (test code = 0.04 10*3/uL 0.06-0.53 L 711-2) BASO x10^3 (test code 0.04 10*3/uL 0.01-0.09 = 704-7) Lab Interpretation Abnormal (test code = 69083-3) [facility] 02:39:28 Test Item Value Reference Range Interpretation Comments POCT GLU (test code = 6670687313) 438 mg/dL 70-110 H Lab Interpretation (test code = Abnormal 58686-8) [facility]. METABOLIC PANEL ([id number])2022-08-25 01:00:03 Test Item Value Reference Range Interpretation Comments NA (test code = 136 mmol/L 135-145 2044648756) K (test code = 3.8 mmol/L 3.5-5.0 9706023228) CL (test code = 104 mmol/L 98-108 4260987242) CO2 TOTAL (test code = 23 mmol/L 23-31 0263329613) AGAP (test code = 9 2-16 4784550432) BUN (test code = 6 mg/dL 7-23 L 2062265808) GLUCOSE (test code = 645 mg/dL 70-110 HH 6858634249) CREATININE (test code = 0.68 mg/dL 0.60-1.25 0622221630) TOTAL BILI (test code = 1.0 mg/dL 0.1-1.4 3483498860) CALCIUM (test code = 8.5 mg/dL 8.6-10.6 L 8520465464) T PROTEIN (test code = 6.8 g/dL 6.3-8.2 0404770919) ALBUMIN (test code = 3.5 g/dL 3.5-5.0 2257559534) ALK PHOS (test code = 201 U/L 34-122 H 4934192881) ALTv (test code = 60 U/L 5-50 H 1742-6) AST(SGOT) (test code = 23 U/L 13-40 9041254644) eGFR (test code = 131.2 mL/min/1.73m2 5786688621) ARPITA (test code = ARPITA) Association of [...] tests). Lab Interpretation Abnormal (test code = 35232-3) [facility] Test Item Value Reference Range Interpretation Comments LIPASE (test code = 3060884052) 141 U/L 0-220 Lab Interpretation (test code = Normal 23561-3) [facility] WITH [id number] 00:01:30 Test Item Value Reference Range Interpretation Comments WBC (test code = 8.06 See_Comment [Automated 6690-2) message] The sy stem which generated this result transmitted reference range : 4.20 - 10.70 10*3/?L. The reference range was not used to interpret this result as normal/abnormal . RBC (test code = 5.04 See_Comment [Automated 789-8) message] The sy stem which generated this result transmitted reference range : 4.26 - 5.52 10*6/?L. The reference range was not used to interpret this result as normal/abnormal . HGB (test code = 14.4 g/dL 12.2-16.4 718-7) HCT (test code = 43.1 % 38.4-49.3 4544-3) MCV (test code = 85.5 fL 81.7-95.6 787-2) MCH (test code = 28.6 pg 26.1-32.7 785-6) MCHC (test code = 33.4 g/dL 31.2-35.0 786-4) RDW-SD (test code = 46.7 fL 38.5-51.6 92809-0) RDW-CV (test code = 15.5 % 12.1-15.4 H 788-0) PLT (test code = 386 See_Comment H [Automated 777-3) message] The sy stem which generated this result transmitted reference range : 150 - 328 10*3/ ?L. The reference r boubacar was not used to interpret this result as normal/abnormal . MPV (test code = 10.7 fL 9.8-13.0 35682-7) NRBC/100 WBC (test 0.0 See_Comment [Automat ed code = 6060438599) message] The system which generated this result transmitted reference range : 0.0 - 10.0 /100 WBCs. The refer ence range was not u sed to interpret th is result as normal/abnormal . NRBC x10^3 (test code See_Comment [Auto mated = 1873652258) message] The s ystem which generated this result transmitted reference range : 10*3/?L. The reference range was not used to interpret this result as normal/abnormal . GRAN MAT (NEUT) % 72.5 % (test code = 770-8) IMM GRAN % (test code 0.40 % = 0216558356) LYMPH % (test code = 15.0 % 736-9) MONO % (test code = 9.1 % 5905-5) EOS % (test code = 2.5 % 713-8) BASO % (test code = 0.5 % 706-2) GRAN MAT x10^3(ANC) 5.85 10*3/uL 1.99-6.95 (test code = 6763664440) IMM GRAN x10^3 (test 0.03 10*3/uL 0.00-0.06 code = 1962022920) LYMPH x10^3 (test code 1.21 10*3/uL 1.09-3.23 = 731-0) MONO x10^3 (test code 0.73 10*3/uL 0.36-1.02 = 742-7) EOS x10^3 (test code = 0.20 10*3/uL 0.06-0.53 711-2) BASO x10^3 (test code 0.04 10*3/uL 0.01-0.09 = 704-7) Lab Interpretation Abnormal (test code = 68008-8) [facility] 23:09:42 Test Item Value Reference Range Interpretation Comments POCT GLU (test code = 6506544844) 367 mg/dL 70-110 H Lab Interpretation (test code = Abnormal 94043-5) [facility] ([id number])2022-08-23 22:58:25 Test Item Value Reference Range Interpretation Comments NA (test code = 143 mmol/L 135-145 3490356614) K (test code = 4.2 mmol/L 3.5-5.0 8596645894) CL (test code = 106 mmol/L 98-108 3036155303) CO2 TOTAL (test code = 18 mmol/L 23-31 L 9575481032) AGAP (test code = 19 2-16 H 8380438101) BUN (test code = 7 mg/dL 7-23 4492888272) GLUCOSE (test code = 542 mg/dL 70-110 HH 6737656811) CREATININE (test code = 0.67 mg/dL 0.60-1.25 3646471244) TOTAL BILI (test code = 1.5 mg/dL 0.1-1.1 H 7276726155) CALCIUM (test code = 9.5 mg/dL 8.6-10.6 1070880938) T PROTEIN (test code = 7.9 g/dL 6.3-8.2 2398489953) ALBUMIN (test code = 4.2 g/dL 3.5-5.0 1428897922) ALK PHOS (test code = 233 U/L 34-122 H 8810928275) ALTv (test code = 86 U/L 5-50 H 1742-6) AST(SGOT) (test code = 25 U/L 13-40 4766724079) eGFR (test code = 133.5 mL/min/1.73m2 7986114637) ARPITA (test code = ARPITA) Association of [...] tests). Lab Interpretation Abnormal (test code = 76908-9) [facility]:55:17 Test Item Value Reference Range Interpretation Comments MAGNESIUM (test code = 4653870001) 1.7 mg/dL 1.7-2.4 Lab Interpretation (test code = Normal 82366-7) [facility] [id number] 22:28:16 Test Item Value Reference Range Interpretation Comments WBC (test code = 8.36 See_Comment [Automated 6690-2) message] The sy stem which generated this result transmitted reference range : 4.20 - 10.70 10*3/?L. The reference range was not used to interpret this result as normal/abnormal . RBC (test code = 5.74 See_Comment H [Automated 789-8) message] The sy stem which generated this result transmitted reference range : 4.26 - 5.52 10*6/?L. The reference range was not used to interpret this result as normal/abnormal . HGB (test code = 16.5 g/dL 12.2-16.4 H 718-7) HCT (test code = 48.5 % 38.4-49.3 4544-3) MCV (test code = 84.5 fL 81.7-95.6 787-2) MCH (test code = 28.7 pg 26.1-32.7 785-6) MCHC (test code = 34.0 g/dL 31.2-35.0 786-4) RDW-SD (test code = 45.1 fL 38.5-51.6 49813-8) RDW-CV (test code = 15.8 % 12.1-15.4 H 788-0) PLT (test code = 475 See_Comment H [Automated 777-3) message] The sy stem which generated this result transmitted reference range : 150 - 328 10*3/ ?L. The reference r boubacar was not used to interpret this result as normal/abnormal . MPV (test code = 10.7 fL 9.8-13.0 00881-0) NRBC/100 WBC (test 0.0 See_Comment [Automat ed code = 8310590476) message] The system which generated this result transmitted reference range : 0.0 - 10.0 /100 WBCs. The refer ence range was not u sed to interpret th is result as normal/abnormal . NRBC x10^3 (test code See_Comment [Auto mated = 8350857107) message] The s ystem which generated this result transmitted reference range : 10*3/?L. The reference range was not used to interpret this result as normal/abnormal . GRAN MAT (NEUT) % 70.8 % (test code = 770-8) IMM GRAN % (test code 1.00 % = 4391820788) LYMPH % (test code = 18.3 % 736-9) MONO % (test code = 7.7 % 5905-5) EOS % (test code = 1.8 % 713-8) BASO % (test code = 0.4 % 706-2) GRAN MAT x10^3(ANC) 5.93 10*3/uL 1.99-6.95 (test code = 6675215694) IMM GRAN x10^3 (test 0.08 10*3/uL 0.00-0.06 H code = 2522916844) LYMPH x10^3 (test code 1.53 10*3/uL 1.09-3.23 = 731-0) MONO x10^3 (test code 0.64 10*3/uL 0.36-1.02 = 742-7) EOS x10^3 (test code = 0.15 10*3/uL 0.06-0.53 711-2) BASO x10^3 (test code 0.03 10*3/uL 0.01-0.09 = 704-7) Lab Interpretation Abnormal (test code = 59449-3) [facility] GLUCOSE (AUTOMATED)2022-08-23 22:22:13 Test Item Value Reference Range Interpretation Comments POCT GLU (test code = 3839841241) 515 mg/dL 70-110 HH Lab Interpretation (test code = Abnormal 70436-6) [facility] GLUCOSE (AUTOMATED)2022-08-23 21:18:09 Test Item Value Reference Range Interpretation Comments POCT GLU (test code = 2331862891) 557 mg/dL 70-110 HH Lab Interpretation (test code = Abnormal 52916-7) [facility] GLUCOSE (AUTOMATED)2022-08-16 23:58:14 Test Item Value Reference Range Interpretation Comments POCT GLU (test code = 8134899643) 235 mg/dL 70-110 H Lab Interpretation (test code = Abnormal 07022-2) [facility] GLUCOSE (AUTOMATED)2022-08-16 17:36:06 Test Item Value Reference Range Interpretation Comments POCT GLU (test code = 0251626121) 276 mg/dL 70-110 H Lab Interpretation (test code = Abnormal 41393-4) [facility] GLUCOSE (AUTOMATED)2022-08-16 14:01:35 Test Item Value Reference Range Interpretation Comments POCT GLU (test code = 0592436610) 306 mg/dL 70-110 H Lab Interpretation (test code = Abnormal 52700-1) [facility] GLUCOSE (AUTOMATED)2022-08-16 14:01:35 Test Item Value Reference Range Interpretation Comments POCT GLU (test code = 4693354520) 321 mg/dL 70-110 H Lab Interpretation (test code = Abnormal 36220-4) [facility] GLUCOSE (AUTOMATED)2022-08-16 02:22:30 Test Item Value Reference Range Interpretation Comments POCT GLU (test code = 1029579915) 323 mg/dL 70-110 H Lab Interpretation (test code = Abnormal 48255-4) [facility] GLUCOSE (AUTOMATED)2022-08-16 01:14:46 Test Item Value Reference Range Interpretation Comments POCT GLU (test code = 3084633670) 311 mg/dL 70-110 H Lab Interpretation (test code = Abnormal 04868-8) [facility] GLUCOSE (AUTOMATED)2022-08-15 23:47:24 Test Item Value Reference Range Interpretation Comments POCT GLU (test code = [id number]) 354 mg/dL 70-110 H Lab Interpretation (test code = Abnormal 93481-9) [facility] GLUCOSE (AUTOMATED)2022-08-15 22:23:59 Test Item Value Reference Range Interpretation Comments POCT GLU (test code = [id number]) 398 mg/dL 70-110 H Lab Interpretation (test code = Abnormal 03926-2) [facility] HEMOGLOBIN A1C [id number] 19:04:00 Test Item Value Reference Range Interpretation Comments POCT HBA1C (test code = 4548-4) 6.8 % 4-6 A Lab Interpretation (test code = Abnormal 54312-7) [facility] HEMOGLOBIN A1C [id number] 19:04:00 Test Item Value Reference Range Interpretation Comments POCT HBA1C (test code = 4548-4) 6.8 % 4-6 A Lab Interpretation (test code = Abnormal 21076-5) [facility] HEMOGLOBIN A1C [id number] 19:04:00 Test Item Value Reference Range Interpretation Comments POCT HBA1C (test code = 4548-4) 6.8 % 4-6 A Lab Interpretation (test code = Abnormal 88223-3) [facility] GLUCOSE (AUTOMATED)2022-05-21 23:04:10 Test Item Value Reference Range Interpretation Comments POCT GLU (test code = 3344668726) 142 mg/dL 70-110 H Lab Interpretation (test code = Abnormal 77043-8) [facility] GLUCOSE (AUTOMATED)2022-05-21 18:07:54 Test Item Value Reference Range Interpretation Comments POCT GLU (test code = 2458076890) 198 mg/dL 70-110 H Lab Interpretation (test code = Abnormal 57180-9) [facility] GLUCOSE (AUTOMATED)2022-05-21 13:54:10 Test Item Value Reference Range Interpretation Comments POCT GLU (test code = 7899407100) 141 mg/dL 70-110 H Lab Interpretation (test code = Abnormal 77132-8) [facility] GLUCOSE (AUTOMATED)2022-05-21 02:47:37 Test Item Value Reference Range Interpretation Comments POCT GLU (test code = 3885055001) 150 mg/dL 70-110 H Lab Interpretation (test code = Abnormal 24254-4) [facility]. METABOLIC PANEL (34072)2022-05-20 23:49:17 Test Item Value Reference Range Interpretation Comments NA (test code = 139 mmol/L 135-145 3517790678) K (test code = 4.5 mmol/L 3.5-5.0 4410240632) CL (test code = 104 mmol/L 98-108 2273260173) CO2 TOTAL (test code = 25 mmol/L 23-31 2014892281) AGAP (test code = 2-16 2263377556) BUN (test code = 13 mg/dL 7-23 4545723846) GLUCOSE (test code = 228 mg/dL 70-110 H 4223554849) CREATININE (test code = 0.56 mg/dL 0.60-1.25 L 3376683766) TOTAL BILI (test code = 0.6 mg/dL 0.1-1.6 0167726579) CALCIUM (test code = 9.7 mg/dL 8.6-10.6 5802654648) T PROTEIN (test code = 7.8 g/dL 6.3-8.2 7174492047) ALBUMIN (test code = 4.4 g/dL 3.5-5.0 5039065639) ALK PHOS (test code = 132 U/L 34-122 H 4211191970) ALTv (test code = 31 U/L 5-50 1742-6) AST(SGOT) (test code = 20 U/L 13-40 2729954763) eGFR (test code = mL/min/1.73m2 1408298101) ARPITA (test code = ARPITA) Association of [...] tests). Lab Interpretation Abnormal (test code = 30088-4) [facility] WITH [id number] 23:45:35 Test Item Value Reference Range Interpretation Comments WBC (test code = See_Comment [Automated 2242-2) message] The sy stem which generated this result transmitted reference range : 4.20 - 10.70 10*3/?L. The reference range was not used to interpret this result as normal/abnormal . RBC (test code = See_Comment H [Automated 218-8) message] The sy stem which generated this [...] RDW-SD (test code = 45.1 fL 38.5-51.6 18437-8) RDW-CV (test code = 14.9 % 12.1-15.4 788-0) PLT (test code = See_Comment [Automated 777-3) message] The sy stem which generated this result transmitted reference range : 150 - 328 10*3/ ?L. The reference r boubacar was not used to interpret this result as normal/abnormal . MPV (test code = 10.9 fL 9.8-13.0 78507-5) IPF % (test code = 9.9 % 1.2-10.7 Platelet count 1733144538) measured by fluorescence method. NRBC/100 WBC (test See_Comment [Automat ed code = 8148354142) message] The system which generated this result transmitted reference range : 0.0 - 10.0 /100 WBCs. The refer ence range was not u sed to interpret th is result as normal/abnormal . NRBC x10^3 (test code See_Comment [Auto mated = 4331636652) message] The s ystem which generated this result transmitted reference range : 10*3/?L. The reference range was not used to interpret this result as normal/abnormal . GRAN MAT (NEUT) % 65.4 % (test code = 770-8) IMM GRAN % (test code 0.60 % = 2294635789) LYMPH % (test code = 23.1 % 736-9) MONO % (test code = 7.9 % 5905-5) EOS % (test code = 2.6 % 713-8) BASO % (test code = 0.4 % 706-2) GRAN MAT x10^3(ANC) 6.34 10*3/uL 1.99-6.95 (test code = 7664600884) IMM GRAN x10^3 (test 0.06 10*3/uL 0.00-0.06 code = 1368891026) LYMPH x10^3 (test code 2.24 10*3/uL 1.09-3.23 = 731-0) MONO x10^3 (test code 0.77 10*3/uL 0.36-1.02 = 742-7) EOS x10^3 (test code = 0.25 10*3/uL 0.06-0.53 711-2) BASO x10^3 (test code 0.04 10*3/uL 0.01-0.09 = 704-7) Lab Interpretation Abnormal (test code = 71360-4) [facility] [id number] 23:16:59 Test Item Value Reference Range Interpretation Comments LACTIC ACID (test code = 3.00 mmol/L 0.50-2.20 H 3494807399) Lab Interpretation (test code = Abnormal 17435-3) [facility] WITH [id number] 01:28:46 Test Item Value Reference Range Interpretation [...] RDW-SD (test code = 47.6 fL 38.5-51.6 47469-5) RDW-CV (test code = 15.4 % 12.1-15.4 788-0) PLT (test code = See_Comment L [Automated 777-3) message] The sy stem which generated this result transmitted reference range : 150 - 328 10*3/ ?L. The reference r boubacar was not used to interpret this result as normal/abnormal . MPV (test code = 10.6 fL 9.8-13.0 30033-8) NRBC/100 WBC (test See_Comment [Automat ed code = 4722816085) message] The system which generated this result transmitted reference range : 0.0 - 10.0 /100 WBCs. The refer ence range was not u sed to interpret th is result as normal/abnormal . NRBC x10^3 (test code See_Comment [Auto mated = 6860572922) message] The s ystem which generated this result transmitted reference range : 10*3/?L. The reference range was not used to interpret this result as normal/abnormal . GRAN MAT (NEUT) % 70.8 % (test code = 770-8) IMM GRAN % (test code 0.50 % = 1866888364) LYMPH % (test code = 20.4 % 736-9) MONO % (test code = 5.9 % 5905-5) EOS % (test code = 2.0 % 713-8) BASO % (test code = 0.4 % 706-2) GRAN MAT x10^3(ANC) 7.23 10*3/uL 1.99-6.95 H (test code = 6450770908) IMM GRAN x10^3 (test 0.05 10*3/uL 0.00-0.06 code = 8796448453) LYMPH x10^3 (test code 2.08 10*3/uL 1.09-3.23 = 731-0) MONO x10^3 (test code 0.60 10*3/uL 0.36-1.02 = 742-7) EOS x10^3 (test code = 0.20 10*3/uL 0.06-0.53 711-2) BASO x10^3 (test code 0.04 10*3/uL 0.01-0.09 = 704-7) Lab Interpretation Abnormal (test code = 27321-8) [facility]. METABOLIC PANEL (19001)2022-05-13 01:23:44 Test Item Value Reference Range Interpretation Comments NA (test code = 141 mmol/L 135-145 0030943420) K (test code = 4.7 mmol/L 3.5-5.0 6397651947) CL (test code = 107 mmol/L 98-108 6017107672) CO2 TOTAL (test code = 23 mmol/L 23-31 2808712132) AGAP (test code = 2-16 7987918885) BUN (test code = 16 mg/dL 7-23 4490480319) GLUCOSE (test code = 144 mg/dL 70-110 H 9803513550) CREATININE (test code = 0.54 mg/dL 0.60-1.25 L 8913798125) TOTAL BILI (test code = 0.6 mg/dL 0.1-1.1 4471845266) CALCIUM (test code = 9.5 mg/dL 8.6-10.6 4801798935) T PROTEIN (test code = 7.7 g/dL 6.3-8.2 9596921826) ALBUMIN (test code = 4.4 g/dL 3.5-5.0 4082207209) ALK PHOS (test code = 101 U/L 34-122 9950897556) ALTv (test code = 28 U/L 5-50 1742-6) AST(SGOT) (test code = 20 U/L 13-40 9185247042) eGFR (test code = mL/min/1.73m2 3679377257) ARPITA (test code = ARPITA) Association of [...] tests). Lab Interpretation Abnormal (test code = 59210-7) [facility] Test Item Value Reference Range Interpretation Comments LIPASE (test code = 8528714069) 99 U/L 0-220 Lab Interpretation (test code = Normal 15625-7) [facility] GLUCOSE (AUTOMATED)2022-05-06 13:16:26 Test Item Value Reference Range Interpretation Comments POCT GLU (test code = 5909820217) 162 mg/dL 70-110 H Lab Interpretation (test code = Abnormal 41121-5) [facility] GLUCOSE (AUTOMATED)2022-05-06 01:23:12 Test Item Value Reference Range Interpretation Comments POCT GLU (test code = 7888116148) 248 mg/dL 70-110 H Lab Interpretation (test code = Abnormal 17837-3) [facility] GLUCOSE (AUTOMATED)2022-05-05 21:32:18 Test Item Value Reference Range Interpretation Comments POCT GLU (test code = 4583132362) 239 mg/dL 70-110 H Lab Interpretation (test code = Abnormal 49917-6) [facility] GLUCOSE (AUTOMATED)2022-05-05 01:49:48 Test Item Value Reference Range Interpretation Comments POCT GLU (test code = 4610616467) 317 mg/dL 70-110 H Lab Interpretation (test code = Abnormal 79290-6) [facility] GLUCOSE (AUTOMATED)2022-05-04 21:38:03 Test Item Value Reference Range Interpretation Comments POCT GLU (test code = 9579364441) 139 mg/dL 70-110 H Lab Interpretation (test code = Abnormal 38920-4) [facility] GLUCOSE (AUTOMATED)2022-05-04 16:14:31 Test Item Value Reference Range Interpretation Comments POCT GLU (test code = 4332273314) 164 mg/dL 70-110 H Lab Interpretation (test code = Abnormal 60758-9) [facility] GLUCOSE (AUTOMATED)2022-05-04 12:46:40 Test Item Value Reference Range Interpretation Comments POCT GLU (test code = 5675803019) 154 mg/dL 70-110 H Lab Interpretation (test code = Abnormal 78860-9) [facility]52 Test Item Value Reference Range Interpretation Comments LIPASE (test code = 8673209985) 216 U/L 0-220 Lab Interpretation (test code = Normal 19026-6) [facility]. METABOLIC PANEL (52704)2022-05-04 06:39:52 Test Item Value Reference Range Interpretation Comments NA (test code = 139 mmol/L 135-145 6182479450) K (test code = 4.7 mmol/L 3.5-5 4909550566) CL (test code = 106 mmol/L 98-108 4913208748) CO2 TOTAL (test code = 20 mmol/L 23-31 L 1584260982) AGAP (test code = 2-16 4675811947) BUN (test code = 16 mg/dL 7-23 3351824777) GLUCOSE (test code = 224 mg/dL 70-110 H 1731631330) CREATININE (test code = 0.72 mg/dL 0.6-1.25 1321630785) TOTAL BILI (test code = 0.4 mg/dL 0.1-1.0 9465114771) CALCIUM (test code = 9.3 mg/dL 8.6-10.6 9499484530) T PROTEIN (test code = 7.2 g/dL 6.3-8.2 8825660651) ALBUMIN (test code = 4.1 g/dL 3.5-5 9843374638) ALK PHOS (test code = 118 U/L 34-122 8139640633) ALTv (test code = 46 U/L 5-50 1742-6) AST(SGOT) (test code = 18 U/L 13-40 7931875423) eGFR (test code = mL/min/1.73m2 0649509715) ARPITA (test code = ARPITA) Association of [...] tests). Lab Interpretation Abnormal (test code = 79656-6) [facility] WITH [id number] 06:28:46 Test Item Value Reference Range Interpretation Comments WBC (test code = See_Comment [Automated 3290-2) message] The sy stem which generated this result transmitted reference range : 4.20 - 10.70 10*3/?L. The reference range was not used to interpret this result as normal/abnormal . RBC (test code = See_Comment [Automated 959-8) message] The sy stem which [...] RDW-SD (test code = 45.7 fL 38.5-51.6 65694-8) RDW-CV (test code = 14.8 % 12.1-15.4 788-0) PLT (test code = See_Comment H [Automated 197-3) message] The sy stem which generated this result transmitted reference range : 150 - 328 10*3/ ?L. The reference r boubacar was not used to interpret this result as normal/abnormal . MPV (test code = 11.0 fL 9.8-13 26041-3) NRBC/100 WBC (test See_Comment [Automat ed code = 9541659857) message] The system which generated this result transmitted reference range : 0.0 - 10.0 /100 WBCs. The refer ence range was not u sed to interpret th is result as normal/abnormal . NRBC x10^3 (test code See_Comment [Auto mated = 8827664416) message] The s ystem which generated this result transmitted reference range : 10*3/?L. The reference range was not used to interpret this result as normal/abnormal . GRAN MAT (NEUT) % 56.7 % (test code = 770-8) IMM GRAN % (test code 0.70 % = 3300770445) LYMPH % (test code = 31.5 % 736-9) MONO % (test code = 8.6 % 5905-5) EOS % (test code = 2.0 % 713-8) BASO % (test code = 0.5 % 706-2) GRAN MAT x10^3(ANC) 4.84 10*3/uL 1.99-6.95 (test code = 9269011701) IMM GRAN x10^3 (test 0.06 10*3/uL 0-0.06 code = 2002047569) LYMPH x10^3 (test code 2.69 10*3/uL 1.09-3.23 = 731-0) MONO x10^3 (test code 0.73 10*3/uL 0.36-1.02 = 742-7) EOS x10^3 (test code = 0.17 10*3/uL 0.06-0.53 711-2) BASO x10^3 (test code 0.04 10*3/uL 0.01-0.09 = 704-7) Lab Interpretation Abnormal (test code = 71290-9) [facility] CULTURE(AEROBIC/ANAEROBIC)2022-02-23 20:34:19 Test Item Value Reference Range Interpretation Comments TISSUE CULTURE (test No aerobic/anaerobic code = 60037-0) organisms isolated Gram stain (test code No PMNs or Mononuclear = 664-3) cells observed [facility] GLUCOSE (AUTOMATED)2022-02-23 18:36:41 Test Item Value Reference Range Interpretation Comments POCT GLU (test code = 3641602421) 162 mg/dL 70-110 H Lab Interpretation (test code = Abnormal 67174-5) [facility] GLUCOSE (AUTOMATED)2022-02-23 14:48:29 Test Item Value Reference Range Interpretation Comments POCT GLU (test code = 9154184020) 191 mg/dL 70-110 H Lab Interpretation (test code = Abnormal 39091-1) [facility] GLUCOSE (AUTOMATED)2022-02-23 10:56:47 Test Item Value Reference Range Interpretation Comments POCT GLU (test code = 4765395130) 242 mg/dL 70-110 H Lab Interpretation (test code = Abnormal 48875-0) [facility] GLUCOSE (AUTOMATED)2022-02-23 05:47:30 Test Item Value Reference Range Interpretation Comments POCT GLU (test code = 9591727195) 327 mg/dL 70-110 H Lab Interpretation (test code = Abnormal 81994-5) [facility] GLUCOSE (AUTOMATED)2022-02-23 02:18:34 Test Item Value Reference Range Interpretation Comments POCT GLU (test code = 3727498228) 309 mg/dL 70-110 H Lab Interpretation (test code = Abnormal 35553-9) [facility] GLUCOSE (AUTOMATED)2022-02-22 23:17:38 Test Item Value Reference Range Interpretation Comments POCT GLU (test code = 8069166684) 260 mg/dL 70-110 H Lab Interpretation (test code = Abnormal 89402-6) [facility] GLUCOSE (AUTOMATED)2022-02-22 18:33:41 Test Item Value Reference Range Interpretation Comments POCT GLU (test code = 2226877198) 264 mg/dL 70-110 H Lab Interpretation (test code = Abnormal 35790-5) [facility] GLUCOSE (AUTOMATED)2022-02-22 15:02:50 Test Item Value Reference Range Interpretation Comments POCT GLU (test code = 3560185925) 219 mg/dL 70-110 H Lab Interpretation (test code = Abnormal 44771-1) [facility] METABOLIC PANEL (NA, K, CL, CO2, GLUCOSE, BUN, CREATININE, CA)2022-02-22 10:44:27 Test Item Value Reference Range Interpretation Comments NA (test code = 132 mmol/L 135-145 L 4207389657) K (test code = 4.4 mmol/L 3.5-5 1418082670) CL (test code = 103 mmol/L 98-108 3742151631) CO2 TOTAL (test code = 25 mmol/L 23-31 5528245930) AGAP (test code = 2-16 3970572351) BUN (test code = 15 mg/dL 7-23 9376615955) GLUCOSE (test code = 262 mg/dL 70-110 H 6386367336) CREATININE (test code = 0.52 mg/dL 0.6-1.25 L 0855846248) CALCIUM (test code = 8.3 mg/dL 8.6-10.6 L 6321741908) eGFR (test code = mL/min/1.73m2 2810987899) ARPITA (test code = ARPITA) Association of [...] tests). Lab Interpretation Abnormal (test code = 21172-9) [facility] WITH [id number] 10:22:05 Test Item Value Reference Range Interpretation [...] RDW-SD (test code = 49.8 fL 38.5-51.6 82839-1) RDW-CV (test code = 15.9 % 12.1-15.4 H 788-0) PLT (test code = See_Comment H [Automated 777-3) message] The sy stem which generated this result transmitted reference range : 150 - 328 10*3/ ?L. The reference r boubacar was not used to interpret this result as normal/abnormal . MPV (test code = 10.4 fL 9.8-13 60632-0) NRBC/100 WBC (test See_Comment [Automat ed code = 7531848361) message] The system which generated this result transmitted reference range : 0.0 - 10.0 /100 WBCs. The refer ence range was not u sed to interpret th is result as normal/abnormal . NRBC x10^3 (test code See_Comment [Auto mated = 0810789594) message] The s ystem which generated this result transmitted reference range : 10*3/?L. The reference range was not used to interpret this result as normal/abnormal . GRAN MAT (NEUT) % 59.8 % (test code = 770-8) IMM GRAN % (test code 1.20 % = 2156798120) LYMPH % (test code = 28.2 % 736-9) MONO % (test code = 8.4 % 5905-5) EOS % (test code = 2.2 % 713-8) BASO % (test code = 0.2 % 706-2) GRAN MAT x10^3(ANC) 5.34 10*3/uL 1.99-6.95 (test code = 3254814410) IMM GRAN x10^3 (test 0.11 10*3/uL 0-0.06 H code = 7216502064) LYMPH x10^3 (test code 2.52 10*3/uL 1.09-3.23 = 731-0) MONO x10^3 (test code 0.75 10*3/uL 0.36-1.02 = 742-7) EOS x10^3 (test code = 0.20 10*3/uL 0.06-0.53 711-2) BASO x10^3 (test code 0.01-0.09 = 704-7) Lab Interpretation Abnormal (test code = 04158-0) [facility] GLUCOSE (AUTOMATED)2022-02-22 02:20:10 Test Item Value Reference Range Interpretation Comments POCT GLU (test code = 4705028556) 281 mg/dL 70-110 H Lab Interpretation (test code = Abnormal 49410-2) [facility] GLUCOSE (AUTOMATED)2022-02-21 22:27:37 Test Item Value Reference Range Interpretation Comments POCT GLU (test code = 5529423890) 187 mg/dL 70-110 H Lab Interpretation (test code = Abnormal 35623-5) [facility] GLUCOSE (AUTOMATED)2022-02-21 19:00:16 Test Item Value Reference Range Interpretation Comments POCT GLU (test code = 8197010914) 167 mg/dL 70-110 H Lab Interpretation (test code = Abnormal 40391-0) [facility] GLUCOSE (AUTOMATED)2022-02-21 19:00:16 Test Item Value Reference Range Interpretation Comments POCT GLU (test code = 3406798916) 167 mg/dL 70-110 H Lab Interpretation (test code = Abnormal 12156-5) [facility] GLUCOSE (AUTOMATED)2022-02-21 15:22:04 Test Item Value Reference Range Interpretation Comments POCT GLU (test code = 9849223025) 138 mg/dL 70-110 H Lab Interpretation (test code = Abnormal 33469-5) [facility] GLUCOSE (AUTOMATED)2022-02-21 15:22:04 Test Item Value Reference Range Interpretation Comments POCT GLU (test code = 2530409698) 138 mg/dL 70-110 H Lab Interpretation (test code = Abnormal 67279-0) [facility] GLUCOSE (AUTOMATED)2022-02-21 02:45:31 Test Item Value Reference Range Interpretation Comments POCT GLU (test code = 1754676382) 142 mg/dL 70-110 H Lab Interpretation (test code = Abnormal 41196-4) [facility] GLUCOSE (AUTOMATED)2022-02-21 02:45:31 Test Item Value Reference Range Interpretation Comments POCT GLU (test code = 3389544851) 142 mg/dL 70-110 H Lab Interpretation (test code = Abnormal 59984-1) [facility] GLUCOSE (AUTOMATED)2022-02-20 22:04:41 Test Item Value Reference Range Interpretation Comments POCT GLU (test code = 3243253830) 260 mg/dL 70-110 H Lab Interpretation (test code = Abnormal 02684-3) [facility] GLUCOSE (AUTOMATED)2022-02-20 22:04:41 Test Item Value Reference Range Interpretation Comments POCT GLU (test code = 6720435463) 260 mg/dL 70-110 H Lab Interpretation (test code = Abnormal 84230-5) [facility]01:35 Test Item Value Reference Range Interpretation Comments Blood Culture-Aerobic No organisms No growth Previo us (test code = 56141-2) isolated prelim inary verified result was Culture [...] Culture-Anaerobic isolated preliminar y (test code = 62552-2) verifi ed result was Culture In Progress [...] CDT Lab Interpretation Normal (test code = 12537-1) [facility] [id number] 21:01:35 Test Item Value Reference Range Interpretation Comments Blood Culture-Aerobic No organisms No growth Previo us (test code = 89536-7) isolated prelim inary verified result was Culture [...] Culture-Anaerobic isolated preliminar y (test code = 79829-0) verifi ed result was Culture In Progress [...] CDT Lab Interpretation Normal (test code = 26037-4) [facility] - [facility] Vein # 21:01:35 Test Item Value Reference Range Interpretation Comments Blood Culture-Aerobic No organisms No growth Previo us (test code = 31077-3) isolated prelim inary verified result was Culture [...] Culture-Anaerobic isolated preliminar y (test code = 29505-3) verifi ed result was Culture In Progress [...] CDT Lab Interpretation Normal (test code = 20424-4) [facility] [id number] 21:01:35 Test Item Value Reference Range Interpretation Comments Blood Culture-Aerobic No organisms No growth Previo us (test code = 09241-4) isolated prelim inary verified result was Culture [...] Culture-Anaerobic isolated preliminar y (test code = 76643-3) verifi ed result was Culture In Progress [...] CDT Lab Interpretation Normal (test code = 28112-2) [facility] GLUCOSE (AUTOMATED)2022-02-20 14:13:49 Test Item Value Reference Range Interpretation Comments POCT GLU (test code = 7702154928) 176 mg/dL 70-110 H Lab Interpretation (test code = Abnormal 56136-0) [facility] GLUCOSE (AUTOMATED)2022-02-20 14:13:49 Test Item Value Reference Range Interpretation Comments POCT GLU (test code = 6910307266) 176 mg/dL 70-110 H Lab Interpretation (test code = Abnormal 19895-5) [facility] GLUCOSE (AUTOMATED)2022-02-20 02:30:54 Test Item Value Reference Range Interpretation Comments POCT GLU (test code = 0472812513) 113 mg/dL 70-110 H Lab Interpretation (test code = Abnormal 91806-0) [facility] GLUCOSE (AUTOMATED)2022-02-20 02:30:54 Test Item Value Reference Range Interpretation Comments POCT GLU (test code = 3717501732) 113 mg/dL 70-110 H Lab Interpretation (test code = Abnormal 81596-4) [facility] GLUCOSE (AUTOMATED)2022-02-19 23:41:12 Test Item Value Reference Range Interpretation Comments POCT GLU (test code = 8541594946) 135 mg/dL 70-110 H Lab Interpretation (test code = Abnormal 45859-7) [facility] GLUCOSE (AUTOMATED)2022-02-19 23:41:12 Test Item Value Reference Range Interpretation Comments POCT GLU (test code = 2729071231) 135 mg/dL 70-110 H Lab Interpretation (test code = Abnormal 99841-3) [facility] GLUCOSE (AUTOMATED)2022-02-19 17:13:18 Test Item Value Reference Range Interpretation Comments POCT GLU (test code = 4054442697) 238 mg/dL 70-110 H Lab Interpretation (test code = Abnormal 70529-7) [facility] GLUCOSE (AUTOMATED)2022-02-19 17:13:18 Test Item Value Reference Range Interpretation Comments POCT GLU (test code = 6464758685) 238 mg/dL 70-110 H Lab Interpretation (test code = Abnormal 36378-5) [facility] GLUCOSE (AUTOMATED)2022-02-19 17:13:18 Test Item Value Reference Range Interpretation Comments POCT GLU (test code = 7110134510) 238 mg/dL 70-110 H Lab Interpretation (test code = Abnormal 32394-0) [facility] [id number] 16:50:53 Test Item Value Reference Range Interpretation Comments CRP (test code = 0.9 mg/dL See_Comment H [Automated message] 9127457252) The system tagUin generated this result transmit lester reference range : <=0.8. The refe rence range was not u sed to interpret th is result as normal/abnormal . Lab Interpretation (test Abnormal code = 37557-4) [facility] [id number] 16:50:53 Test Item Value Reference Range Interpretation Comments CRP (test code = 0.9 mg/dL See_Comment H [Automated message] 7861052861) The system tagUin generated this result transmit lester reference range : <=0.8. The refe rence range was not u sed to interpret th is result as normal/abnormal . Lab Interpretation (test Abnormal code = 92977-3) [facility] [id number] 16:50:53 Test Item Value Reference Range Interpretation Comments CRP (test code = 0.9 mg/dL See_Comment H [Automated message] 2943311995) The system tagUin generated this result transmit lester reference range : <=0.8. The refe rence range was not u sed to interpret th is result as normal/abnormal . Lab Interpretation (test Abnormal code = 81187-4) [facility] GLUCOSE (AUTOMATED)2022-02-19 15:55:49 Test Item Value Reference Range Interpretation Comments POCT GLU (test code = 0345799859) 209 mg/dL 70-110 H Lab Interpretation (test code = Abnormal 30844-1) [facility] GLUCOSE (AUTOMATED)2022-02-19 15:55:49 Test Item Value Reference Range Interpretation Comments POCT GLU (test code = 3788267548) 209 mg/dL 70-110 H Lab Interpretation (test code = Abnormal 44057-8) [facility] GLUCOSE (AUTOMATED)2022-02-19 00:58:44 Test Item Value Reference Range Interpretation Comments POCT GLU (test code = 7186178042) 300 mg/dL 70-110 H Lab Interpretation (test code = Abnormal 21618-5) [facility] GLUCOSE (AUTOMATED)2022-02-19 00:58:44 Test Item Value Reference Range Interpretation Comments POCT GLU (test code = 5309720822) 300 mg/dL 70-110 H Lab Interpretation (test code = Abnormal 19521-8) [facility] GLUCOSE (AUTOMATED)2022-02-18 21:28:03 Test Item Value Reference Range Interpretation Comments POCT GLU (test code = 0442840922) 119 mg/dL 70-110 H Lab Interpretation (test code = Abnormal 02047-0) [facility] GLUCOSE (AUTOMATED)2022-02-18 21:28:03 Test Item Value Reference Range Interpretation Comments POCT GLU (test code = 8930958148) 119 mg/dL 70-110 H Lab Interpretation (test code = Abnormal 01237-5) [facility] GLUCOSE (AUTOMATED)2022-02-18 16:51:05 Test Item Value Reference Range Interpretation Comments POCT GLU (test code = 3938975384) 275 mg/dL 70-110 H Lab Interpretation (test code = Abnormal 66977-8) [facility] GLUCOSE (AUTOMATED)2022-02-18 16:51:05 Test Item Value Reference Range Interpretation Comments POCT GLU (test code = 4855373108) 275 mg/dL 70-110 H Lab Interpretation (test code = Abnormal 66909-9) [facility] METABOLIC PANEL (NA, K, CL, CO2, GLUCOSE, BUN, CREATININE, CA)2022-02-18 15:51:39 Test Item Value Reference Range Interpretation Comments NA (test code = 136 mmol/L 135-145 0453474896) K (test code = 3.7 mmol/L 3.5-5 8034459962) CL (test code = 111 mmol/L 98-108 H 5841202802) CO2 TOTAL (test code = 21 mmol/L 23-31 L 6840383252) AGAP (test code = 2-16 5194360879) BUN (test code = 9 mg/dL 7-23 7641668287) GLUCOSE (test code = 278 mg/dL 70-110 H 9887011219) CREATININE (test code = 0.46 mg/dL 0.6-1.25 L 0326115566) CALCIUM (test code = 8.2 mg/dL 8.6-10.6 L 4243497825) eGFR (test code = mL/min/1.73m2 8968913758) ARPITA (test code = ARPITA) Association of [...] tests). Lab Interpretation Abnormal (test code = 29052-6) [facility] METABOLIC PANEL (NA, K, CL, CO2, GLUCOSE, BUN, CREATININE, CA)2022-02-18 15:51:39 Test Item Value Reference Range Interpretation Comments NA (test code = 136 mmol/L 135-145 0006949650) K (test code = 3.7 mmol/L 3.5-5 3512041776) CL (test code = 111 mmol/L 98-108 H 9098283454) CO2 TOTAL (test code = 21 mmol/L 23-31 L 9282696626) AGAP (test code = 2-16 9321239077) BUN (test code = 9 mg/dL 7-23 1217867137) GLUCOSE (test code = 278 mg/dL 70-110 H 7549177980) CREATININE (test code = 0.46 mg/dL 0.6-1.25 L 5849848214) CALCIUM (test code = 8.2 mg/dL 8.6-10.6 L 7255743331) eGFR (test code = mL/min/1.73m2 9625829924) ARPITA (test code = ARPITA) Association of [...] tests). Lab Interpretation Abnormal (test code = 46930-5) [facility] GLUCOSE (AUTOMATED)2022-02-18 12:36:29 Test Item Value Reference Range Interpretation Comments POCT GLU (test code = 3678532746) 276 mg/dL 70-110 H Lab Interpretation (test code = Abnormal 62264-1) [facility] GLUCOSE (AUTOMATED)2022-02-18 12:36:29 Test Item Value Reference Range Interpretation Comments POCT GLU (test code = 2828631476) 276 mg/dL 70-110 H Lab Interpretation (test code = Abnormal 89687-3) [facility] GLUCOSE (AUTOMATED)2022-02-18 01:29:51 Test Item Value Reference Range Interpretation Comments POCT GLU (test code = 5955875660) 289 mg/dL 70-110 H Lab Interpretation (test code = Abnormal 33861-4) [facility] GLUCOSE (AUTOMATED)2022-02-18 01:29:51 Test Item Value Reference Range Interpretation Comments POCT GLU (test code = 0587416404) 289 mg/dL 70-110 H Lab Interpretation (test code = Abnormal 60860-1) [facility] GLUCOSE (AUTOMATED)2022-02-17 21:24:38 Test Item Value Reference Range Interpretation Comments POCT GLU (test code = 5706218089) 173 mg/dL 70-110 H Lab Interpretation (test code = Abnormal 02516-1) [facility] GLUCOSE (AUTOMATED)2022-02-17 21:24:38 Test Item Value Reference Range Interpretation Comments POCT GLU (test code = 2595048525) 173 mg/dL 70-110 H Lab Interpretation (test code = Abnormal 98945-6) [facility] GLUCOSE (AUTOMATED)2022-02-17 16:50:49 Test Item Value Reference Range Interpretation Comments POCT GLU (test code = 8621050402) 279 mg/dL 70-110 H Lab Interpretation (test code = Abnormal 31588-5) [facility] 16:50:49 Test Item Value Reference Range Interpretation Comments POCT GLU (test code = 9049088627) 279 mg/dL 70-110 H Lab Interpretation (test code = Abnormal 75027-7) [facility] GLUCOSE (AUTOMATED)2022-02-17 13:31:23 Test Item Value Reference Range Interpretation Comments POCT GLU (test code = 9205906198) 281 mg/dL 70-110 H Lab Interpretation (test code = Abnormal 80963-3) [facility] GLUCOSE (AUTOMATED)2022-02-17 13:31:23 Test Item Value Reference Range Interpretation Comments POCT GLU (test code = 1965020354) 281 mg/dL 70-110 H Lab Interpretation (test code = Abnormal 12783-9) [facility] GLUCOSE (AUTOMATED)2022-02-17 10:02:35 Test Item Value Reference Range Interpretation Comments POCT GLU (test code = 2648103897) 339 mg/dL 70-110 H Lab Interpretation (test code = Abnormal 90979-7) [facility] GLUCOSE (AUTOMATED)2022-02-17 10:02:35 Test Item Value Reference Range Interpretation Comments POCT GLU (test code = 4219356722) 339 mg/dL 70-110 H Lab Interpretation (test code = Abnormal 91692-5) [facility] GLUCOSE (AUTOMATED)2022-02-17 06:33:22 Test Item Value Reference Range Interpretation Comments POCT GLU (test code = 1846766600) 295 mg/dL 70-110 H Lab Interpretation (test code = Abnormal 50041-2) [facility] GLUCOSE (AUTOMATED)2022-02-17 06:33:22 Test Item Value Reference Range Interpretation Comments POCT GLU (test code = 6751497409) 295 mg/dL 70-110 H Lab Interpretation (test code = Abnormal 90935-9) [facility] GLUCOSE (AUTOMATED)2022-02-17 01:54:18 Test Item Value Reference Range Interpretation Comments POCT GLU (test code = 5470302235) 258 mg/dL 70-110 H Lab Interpretation (test code = Abnormal 48557-3) [facility] GLUCOSE (AUTOMATED)2022-02-17 01:54:18 Test Item Value Reference Range Interpretation Comments POCT GLU (test code = 9846007323) 258 mg/dL 70-110 H Lab Interpretation (test code = Abnormal 92704-9) [facility] GLUCOSE (AUTOMATED)2022-02-16 23:03:09 Test Item Value Reference Range Interpretation Comments POCT GLU (test code = 4914264745) 286 mg/dL 70-110 H Lab Interpretation (test code = Abnormal 95646-2) [facility] GLUCOSE (AUTOMATED)2022-02-16 23:03:09 Test Item Value Reference Range Interpretation Comments POCT GLU (test code = 5410349505) 286 mg/dL 70-110 H Lab Interpretation (test code = Abnormal 96660-7) [facility] GLUCOSE (AUTOMATED)2022-02-16 20:48:08 Test Item Value Reference Range Interpretation Comments POCT GLU (test code = 8448946679) 249 mg/dL 70-110 H Lab Interpretation (test code = Abnormal 84856-4) [facility] GLUCOSE (AUTOMATED)2022-02-16 20:48:08 Test Item Value Reference Range Interpretation Comments POCT GLU (test code = 1947268062) 249 mg/dL 70-110 H Lab Interpretation (test code = Abnormal 65779-2) [facility] [id number] 17:01:47 Test Item Value Reference Range Interpretation Comments BOH (test code = 1.0 mmol/L 8624596178) ARPITA (test code = Normal Ranges: ? ? ARPITA) Nonfasting ? Less than 0.1 mmol/L ? ? Overnight Fast ? ? ? Less than 0.4 mmol/L ? ? Fasting (1-2 weeks) ?6-8 mmol/L Test developed and characteristics determined by [facility] Laboratory Services. [facility] [id number] 17:01:47 Test Item Value Reference Range Interpretation Comments BOH (test code = 1.0 mmol/L 7076682179) ARPITA (test code = Normal Ranges: ? ? ARPITA) Nonfasting ? Less than 0.1 mmol/L ? ? Overnight Fast ? ? ? Less than 0.4 mmol/L ? ? Fasting (1-2 weeks) ?6-8 mmol/L Test developed and characteristics determined by [facility] Laboratory [facility]. [facility] [id number] 17:01:47 Test Item Value Reference Range Interpretation Comments BOH (test code = 1.0 mmol/L 6906079124) ARPITA (test code = Normal Ranges: ? ? ARPITA) Nonfasting ? Less than 0.1 mmol/L ? ? Overnight Fast ? ? ? Less than 0.4 mmol/L ? ? Fasting (1-2 weeks) ?6-8 mmol/L Test developed and characteristics determined by [facility] Laboratory Services. [facility] GLUCOSE (AUTOMATED)2022-02-16 16:42:59 Test Item Value Reference Range Interpretation Comments POCT GLU (test code = 2712595086) 264 mg/dL 70-110 H Lab Interpretation (test code = Abnormal 35248-5) [facility] GLUCOSE (AUTOMATED)2022-02-16 16:42:59 Test Item Value Reference Range Interpretation Comments POCT GLU (test code = 5434978061) 264 mg/dL 70-110 H Lab Interpretation (test code = Abnormal 86770-1) [facility] Metabolic Panel (Na, K, Cl, CO2, Glucose, BUN, Creatinine, Ca)2022-02-16 16:16:20 Test Item Value Reference Range Interpretation Comments NA (test code = 137 mmol/L 135-145 5885324692) K (test code = 3.5 mmol/L 3.5-5 0033481779) CL (test code = 115 mmol/L 98-108 H 9808785806) CO2 TOTAL (test code = 17 mmol/L 23-31 L 6629484930) AGAP (test code = 2-16 9975341828) BUN (test code = 5 mg/dL 7-23 L 9451938426) GLUCOSE (test code = 271 mg/dL 70-110 H 3603292835) CREATININE (test code = 0.45 mg/dL 0.6-1.25 L 0011624912) CALCIUM (test code = 8.5 mg/dL 8.6-10.6 L 4167713256) eGFR (test code = mL/min/1.73m2 1387954110) ARPITA (test code = ARPITA) Association of [...] tests). Lab Interpretation Abnormal (test code = 89908-3) [facility] Metabolic Panel (Na, K, Cl, CO2, Glucose, BUN, Creatinine, Ca)2022-02-16 16:16:20 Test Item Value Reference Range Interpretation Comments NA (test code = 137 mmol/L 135-145 4377919080) K (test code = 3.5 mmol/L 3.5-5 7157426913) CL (test code = 115 mmol/L 98-108 H 1515213396) CO2 TOTAL (test code = 17 mmol/L 23-31 L 1096106420) AGAP (test code = 2-16 8890110870) BUN (test code = 5 mg/dL 7-23 L 4674501622) GLUCOSE (test code = 271 mg/dL 70-110 H 2864236776) CREATININE (test code = 0.45 mg/dL 0.6-1.25 L 2258522170) CALCIUM (test code = 8.5 mg/dL 8.6-10.6 L 7400666427) eGFR (test code = mL/min/1.73m2 7704959843) ARPITA (test code = ARPITA) Association of [...] tests). Lab Interpretation Abnormal (test code = 97644-5) [facility] GLUCOSE (AUTOMATED)2022-02-16 14:21:27 Test Item Value Reference Range Interpretation Comments POCT GLU (test code = 3782144323) 286 mg/dL 70-110 H Lab Interpretation (test code = Abnormal 97516-5) [facility] GLUCOSE (AUTOMATED)2022-02-16 14:21:27 Test Item Value Reference Range Interpretation Comments POCT GLU (test code = 7856498078) 286 mg/dL 70-110 H Lab Interpretation (test code = Abnormal 59815-1) [facility] DNA [id number] 13:29:25 Test Item Value Reference Range Interpretation Comments Coagulase Negative Positive Negative, See A Staphylococcus (test Comment/Narrative code = 06953-6) ARPITA (test code = ARPITA) Coagulase negative [...] contact the Antimicrobial Stewardship Program with questions.Pager: ?[phone] Testing included eleven identification and three resistance marker targets. Lab Interpretation Abnormal (test code = 76781-2) [facility] POSITIVE BLOOD PATHOGENS DNA [id number] 13:29:25 Test Item Value Reference Range Interpretation Comments Coagulase Negative Positive Negative, See A Staphylococcus (test Comment/Narrative code = 44059-3) ARPITA (test code = ARPITA) Coagulase negative [...] contact the Antimicrobial Stewardship Program with questions.Pager: ?[phone] Testing included eleven identification and three resistance marker targets. Lab Interpretation Abnormal (test code = 64668-7) [facility] POSITIVE BLOOD PATHOGENS DNA [id number] 13:29:25 Test Item Value Reference Range Interpretation Comments Coagulase Negative Positive Negative, See A Staphylococcus (test Comment/Narrative code = 32270-2) ARPITA (test code = ARPITA) Coagulase negative [...] contact the Antimicrobial Stewardship Program with questions.Pager: ?[phone] Testing included eleven identification and three resistance marker targets. Lab Interpretation Abnormal (test code = 93785-1) [facility] GLUCOSE (AUTOMATED)2022-02-16 13:03:22 Test Item Value Reference Range Interpretation Comments POCT GLU (test code = 2699318054) 307 mg/dL 70-110 H Lab Interpretation (test code = Abnormal 78012-9) [facility] GLUCOSE (AUTOMATED)2022-02-16 13:03:22 Test Item Value Reference Range Interpretation Comments POCT GLU (test code = 0441458648) 307 mg/dL 70-110 H Lab Interpretation (test code = Abnormal 74479-4) [facility] GLUCOSE (AUTOMATED)2022-02-16 09:05:19 Test Item Value Reference Range Interpretation Comments POCT GLU (test code = 5548800871) 326 mg/dL 70-110 H Lab Interpretation (test code = Abnormal 42329-0) [facility] GLUCOSE (AUTOMATED)2022-02-16 09:05:19 Test Item Value Reference Range Interpretation Comments POCT GLU (test code = 6455819449) 326 mg/dL 70-110 H Lab Interpretation (test code = Abnormal 21953-8) [facility] GLUCOSE (AUTOMATED)2022-02-16 05:46:58 Test Item Value Reference Range Interpretation Comments POCT GLU (test code = 1559135872) 341 mg/dL 70-110 H Lab Interpretation (test code = Abnormal 24927-5) [facility] GLUCOSE (AUTOMATED)2022-02-16 05:46:58 Test Item Value Reference Range Interpretation Comments POCT GLU (test code = 1625756417) 341 mg/dL 70-110 H Lab Interpretation (test code = Abnormal 88295-7) [facility] GLUCOSE (AUTOMATED)2022-02-16 01:37:20 Test Item Value Reference Range Interpretation Comments POCT GLU (test code = 0614242524) 196 mg/dL 70-110 H Lab Interpretation (test code = Abnormal 83957-6) [facility] GLUCOSE (AUTOMATED)2022-02-16 01:37:20 Test Item Value Reference Range Interpretation Comments POCT GLU (test code = 9719263006) 196 mg/dL 70-110 H Lab Interpretation (test code = Abnormal 54975-6) [facility] GLUCOSE (AUTOMATED)2022-02-15 23:44:41 Test Item Value Reference Range Interpretation Comments POCT GLU (test code = 7695682651) 138 mg/dL 70-110 H Lab Interpretation (test code = Abnormal 99592-8) [facility] GLUCOSE (AUTOMATED)2022-02-15 23:44:41 Test Item Value Reference Range Interpretation Comments POCT GLU (test code = 7656151168) 138 mg/dL 70-110 H Lab Interpretation (test code = Abnormal 70174-0) [facility] Metabolic Panel (Na, K, Cl, CO2, Glucose, BUN, Creatinine, Ca)2022-02-15 23:12:45 Test Item Value Reference Range Interpretation Comments NA (test code = 138 mmol/L 135-145 2793269706) K (test code = 3.7 mmol/L 3.5-5 1388019674) CL (test code = 115 mmol/L 98-108 H 2875927746) CO2 TOTAL (test code = 17 mmol/L 23-31 L 0236039648) AGAP (test code = 2-16 0860442039) BUN (test code = 5 mg/dL 7-23 L 8458286915) GLUCOSE (test code = 86 mg/dL 70-110 5329860269) CREATININE (test code = 0.46 mg/dL 0.6-1.25 L 0845744746) CALCIUM (test code = 8.4 mg/dL 8.6-10.6 L 5663501347) eGFR (test code = mL/min/1.73m2 9592403624) ARPITA (test code = ARPITA) Association of [...] tests). Lab Interpretation Abnormal (test code = 48925-2) [facility] Metabolic Panel (Na, K, Cl, CO2, Glucose, BUN, Creatinine, Ca)2022-02-15 23:12:45 Test Item Value Reference Range Interpretation Comments NA (test code = 138 mmol/L 135-145 6555073341) K (test code = 3.7 mmol/L 3.5-5 8385634360) CL (test code = 115 mmol/L 98-108 H 7385804967) CO2 TOTAL (test code = 17 mmol/L 23-31 L 9140589783) AGAP (test code = 2-16 9795476489) BUN (test code = 5 mg/dL 7-23 L 3279448639) GLUCOSE (test code = 86 mg/dL 70-110 1290132995) CREATININE (test code = 0.46 mg/dL 0.6-1.25 L 3797420664) CALCIUM (test code = 8.4 mg/dL 8.6-10.6 L 8447703249) eGFR (test code = mL/min/1.73m2 5973618953) ARPITA (test code = ARPITA) Association of [...] tests). Lab Interpretation Abnormal (test code = 48646-4) [facility] GLUCOSE (AUTOMATED)2022-02-15 22:38:52 Test Item Value Reference Range Interpretation Comments POCT GLU (test code = 5266139804) 94 mg/dL 70-110 Lab Interpretation (test code = Normal 24249-4) [facility] GLUCOSE (AUTOMATED)2022-02-15 22:38:52 Test Item Value Reference Range Interpretation Comments POCT GLU (test code = 2597282525) 94 mg/dL 70-110 Lab Interpretation (test code = Normal 99480-6) [facility] GLUCOSE (AUTOMATED)2022-02-15 21:31:35 Test Item Value Reference Range Interpretation Comments POCT GLU (test code = 5732187411) 119 mg/dL 70-110 H Lab Interpretation (test code = Abnormal 22269-5) [facility] GLUCOSE (AUTOMATED)2022-02-15 21:31:35 Test Item Value Reference Range Interpretation Comments POCT GLU (test code = 0695979240) 119 mg/dL 70-110 H Lab Interpretation (test code = Abnormal 95853-8) [facility] GLUCOSE (AUTOMATED)2022-02-15 20:06:03 Test Item Value Reference Range Interpretation Comments POCT GLU (test code = 7790558690) 177 mg/dL 70-110 H Lab Interpretation (test code = Abnormal 15108-1) [facility] GLUCOSE (AUTOMATED)2022-02-15 20:06:03 Test Item Value Reference Range Interpretation Comments POCT GLU (test code = 4355676065) 177 mg/dL 70-110 H Lab Interpretation (test code = Abnormal 95454-2) [facility] GLUCOSE (AUTOMATED)2022-02-15 19:07:20 Test Item Value Reference Range Interpretation Comments POCT GLU (test code = 8816444011) 185 mg/dL 70-110 H Lab Interpretation (test code = Abnormal 49920-7) [facility] GLUCOSE (AUTOMATED)2022-02-15 19:07:20 Test Item Value Reference Range Interpretation Comments POCT GLU (test code = 4690477189) 185 mg/dL 70-110 H Lab Interpretation (test code = Abnormal 10483-4) [facility] [id number] 18:44:53 Test Item Value Reference Interpretation Comments Range TROPONIN I (test 0.000 ng/mL See_Comment [Automated code = 1494377447) message] The system which generated this result [...] biotin. Lab Interpretation Normal (test code = 63458-0) [facility] [id number] 18:44:53 Test Item Value Reference Interpretation Comments Range TROPONIN I (test 0.000 ng/mL See_Comment [Automated code = 7934647005) message] The system which generated this result [...] biotin. Lab Interpretation Normal (test code = 10565-3) [facility] [id number] 18:44:53 Test Item Value Reference Interpretation Comments Range TROPONIN I (test 0.000 ng/mL See_Comment [Automated code = 2135958077) message] The system which generated this result [...] biotin. Lab Interpretation Normal (test code = 44101-1) [facility] (Na, K, Cl, CO2, Glucose, BUN, Creatinine, Ca)2022-02-15 18:27:49 Test Item Value Reference Range Interpretation Comments NA (test code = 138 mmol/L 135-145 8621729639) K (test code = 3.7 mmol/L 3.5-5 1964880787) CL (test code = 115 mmol/L 98-108 H 8684843271) CO2 TOTAL (test code = 16 mmol/L 23-31 L 7321530115) AGAP (test code = 2-16 3274053963) BUN (test code = 7 mg/dL 7-23 7519265887) GLUCOSE (test code = 195 mg/dL 70-110 H 5954735963) CREATININE (test code = 0.52 mg/dL 0.6-1.25 L 7880650418) CALCIUM (test code = 8.2 mg/dL 8.6-10.6 L 8070229566) eGFR (test code = mL/min/1.73m2 1839395348) ARPITA (test code = ARPITA) Association of [...] tests). Lab Interpretation Abnormal (test code = 77848-0) [facility] (Na, K, Cl, CO2, Glucose, BUN, Creatinine, Ca)2022-02-15 18:27:49 Test Item Value Reference Range Interpretation Comments NA (test code = 138 mmol/L 135-145 2739737294) K (test code = 3.7 mmol/L 3.5-5 8756507337) CL (test code = 115 mmol/L 98-108 H 7199908109) CO2 TOTAL (test code = 16 mmol/L 23-31 L 1229039270) AGAP (test code = 2-16 9562080832) BUN (test code = 7 mg/dL 7-23 2834520634) GLUCOSE (test code = 195 mg/dL 70-110 H 7218047622) CREATININE (test code = 0.52 mg/dL 0.6-1.25 L 1354835420) CALCIUM (test code = 8.2 mg/dL 8.6-10.6 L 0503583330) eGFR (test code = mL/min/1.73m2 4660792207) ARPITA (test code = ARPITA) Association of [...] tests). Lab Interpretation Abnormal (test code = 12514-4) [facility]-Yfkcbtvv7410-17-23 17:43:01 Test Item Value Reference Range Interpretation Comments REN (test code = 3.3 mmol/L 7554268857) ARPITA (test code = Normal Ranges: ? ? ARPITA) Nonfasting ? Less than 0.1 mmol/L ? ? Overnight Fast ? ? ? Less than 0.4 mmol/L ? ? Fasting (1-2 weeks) ?6-8 mmol/L Test developed and characteristics determined by [facility] Laboratory Services. [facility]ahydroxy-Ublkfazp2150-93-45 17:43:01 Test Item Value Reference Range Interpretation Comments REN (test code = 3.3 mmol/L 6334421423) ARPITA (test code = Normal Ranges: ? ? ARPITA) Nonfasting ? Less than 0.1 mmol/L ? ? Overnight Fast ? ? ? Less than 0.4 mmol/L ? ? Fasting (1-2 weeks) ?6-8 mmol/L Test developed and characteristics determined by [facility] Laboratory Services. [facility] GLUCOSE (AUTOMATED)2022-02-15 17:29:05 Test Item Value Reference Range Interpretation Comments POCT GLU (test code = 3196433545) 192 mg/dL 70-110 H Lab Interpretation (test code = Abnormal 40259-5) [facility] GLUCOSE (AUTOMATED)2022-02-15 17:29:05 Test Item Value Reference Range Interpretation Comments POCT GLU (test code = 0940256325) 192 mg/dL 70-110 H Lab Interpretation (test code = Abnormal 28646-5) [facility] [id number] 16:28:42 Test Item Value Reference Range Interpretation Comments OSMOLALITY (test code = See_Comment H [Au tomated message] 2692-2) The system tagUin generated this result transmitted ref erence range: 278 - 30 5 mOsm/kg. The reference range was not used to int erpret this result as normal/abnormal . Lab Interpretation (test Abnormal code = 01089-9) [facility] [id number] 16:28:42 Test Item Value Reference Range Interpretation Comments OSMOLALITY (test code = See_Comment H [Au tomated message] 2692-2) The system tag[employer] generated this result transmitted ref erence range: 278 - 30 5 mOsm/kg. The reference range was not used to int erpret this result as normal/abnormal . Lab Interpretation (test Abnormal code = 06629-1) [facility] Fpbmw5729-30-83 16:28:42 Test Item Value Reference Range Interpretation Comments OSMOLALITY (test code = See_Comment H [Au tomated message] 2692-2) The system [employer] generated this result transmitted ref erence range: 278 - 30 5 mOsm/kg. The reference range was not used to int erpret this result as normal/abnormal . Lab Interpretation (test Abnormal code = 30183-3) [facility] Metabolic Panel (Na, K, Cl, CO2, Glucose, BUN, Creatinine, Ca)2022-02-15 16:02:27 Test Item Value Reference Range Interpretation Comments NA (test code = 138 mmol/L 135-145 9362182662) K (test code = 3.7 mmol/L 3.5-5 4916738133) CL (test code = 117 mmol/L 98-108 H 4085994212) CO2 TOTAL (test code = 15 mmol/L 23-31 L 4881641654) AGAP (test code = 2-16 7544185510) BUN (test code = 7 mg/dL 7-23 0388187464) GLUCOSE (test code = 204 mg/dL 70-110 H 4103475081) CREATININE (test code = 0.41 mg/dL 0.6-1.25 L 7104058389) CALCIUM (test code = 8.3 mg/dL 8.6-10.6 L 9894533044) eGFR (test code = mL/min/1.73m2 8564978195) ARPITA (test code = ARPITA) Association of [...] tests). Lab Interpretation Abnormal (test code = 53291-8) [facility] Metabolic Panel (Na, K, Cl, CO2, Glucose, BUN, Creatinine, Ca)2022-02-15 16:02:27 Test Item Value Reference Range Interpretation Comments NA (test code = 138 mmol/L 135-145 0223728437) K (test code = 3.7 mmol/L 3.5-5 2223884667) CL (test code = 117 mmol/L 98-108 H 7943933593) CO2 TOTAL (test code = 15 mmol/L 23-31 L 3357203588) AGAP (test code = 2-16 8962180817) BUN (test code = 7 mg/dL 7-23 7426925782) GLUCOSE (test code = 204 mg/dL 70-110 H 0643373059) CREATININE (test code = 0.41 mg/dL 0.6-1.25 L 6756910430) CALCIUM (test code = 8.3 mg/dL 8.6-10.6 L 7800944724) eGFR (test code = mL/min/1.73m2 3177215521) ARPITA (test code = ARPITA) Association of [...] tests). Lab Interpretation Abnormal (test code = 02455-4) [facility] GLUCOSE (AUTOMATED)2022-02-15 15:54:35 Test Item Value Reference Range Interpretation Comments POCT GLU (test code = 1761389848) 200 mg/dL 70-110 H Lab Interpretation (test code = Abnormal 18928-8) [facility] [facility] 15:54:35 Test Item Value Reference Range Interpretation Comments POCT GLU (test code = 9635425847) 200 mg/dL 70-110 H Lab Interpretation (test code = Abnormal 16391-8) [facility]22-02-15 14:57:17 Test Item Value Reference Range Interpretation Comments POCT GLU (test code = 3698642584) 211 mg/dL 70-110 H Lab Interpretation (test code = Abnormal 59132-1) [facility]SE (AUT[facility])2022-02-15 14:57:17 Test Item Value Reference Range Interpretation Comments POCT GLU (test code = 7170462939) 211 mg/dL 70-110 H Lab Interpretation (test code = Abnormal 00742-2) [facility]SE (AUTOMATED)2022-02-15 13:50:06 Test Item Value Reference Range Interpretation Comments POCT GLU (test code = 9273367242) 216 mg/dL 70-110 H Lab Interpretation (test code = Abnormal 85932-2) [facility]UCOSE (AUTOMATED)2022-02-15 13:50:06 Test Item Value Reference Range Interpretation Comments POCT GLU (test code = 7477420668) 216 mg/dL 70-110 H Lab Interpretation (test code = Abnormal 95414-6) [facility] GLUCOSE (AUTOMATED)2022-02-15 10:43:13 Test Item Value Reference Range Interpretation Comments POCT GLU (test code = 8628446384) 199 mg/dL 70-110 H Lab Interpretation (test code = Abnormal 64770-3) [facility] GLUCOSE (AUTOMATED)2022-02-15 10:43:13 Test Item Value Reference Range Interpretation Comments POCT GLU (test code = 6382829068) 199 mg/dL 70-110 H Lab Interpretation (test code = Abnormal 20668-3) [facility] GLUCOSE (AUTOMATED)2022-02-15 09:31:59 Test Item Value Reference Range Interpretation Comments POCT GLU (test code = 3728437354) 172 mg/dL 70-110 H Lab Interpretation (test code = Abnormal 23843-2) [facility] GLUCOSE (AUTOMATED)2022-02-15 09:31:59 Test Item Value Reference Range Interpretation Comments POCT GLU (test code = 0396910065) 172 mg/dL 70-110 H Lab Interpretation (test code = Abnormal 95948-5) [facility] Metabolic Panel (Na, K, Cl, CO2, Glucose, BUN, Creatinine, Ca)2022-02-15 08:02:13 Test Item Value Reference Range Interpretation Comments NA (test code = 140 mmol/L 135-145 7210925691) K (test code = 3.8 mmol/L 3.5-5 0957843275) CL (test code = 110 mmol/L 98-108 H 1183444475) CO2 TOTAL (test code = 13 mmol/L 23-31 L 6758035379) AGAP (test code = 2-16 H 5021322070) BUN (test code = 10 mg/dL 7-23 0133064381) GLUCOSE (test code = 223 mg/dL 70-110 H 9856752805) CREATININE (test code = 0.58 mg/dL 0.6-1.25 L 7205518786) CALCIUM (test code = 8.8 mg/dL 8.6-10.6 0618250220) eGFR (test code = mL/min/1.73m2 1046492093) ARPITA (test code = ARPITA) Association of [...] tests). Lab Interpretation Abnormal (test code = 06777-5) [facility] Metabolic Panel (Na, K, Cl, CO2, Glucose, BUN, Creatinine, Ca)2022-02-15 08:02:13 Test Item Value Reference Range Interpretation Comments NA (test code = 140 mmol/L 135-145 8977285629) K (test code = 3.8 mmol/L 3.5-5 7355201442) CL (test code = 110 mmol/L 98-108 H 2404511267) CO2 TOTAL (test code = 13 mmol/L 23-31 L 9948891686) AGAP (test code = 2-16 H 1962168749) BUN (test code = 10 mg/dL 7-23 3783166344) GLUCOSE (test code = 223 mg/dL 70-110 H 5497338667) CREATININE (test code = 0.58 mg/dL 0.6-1.25 L 3382228719) CALCIUM (test code = 8.8 mg/dL 8.6-10.6 9763069566) eGFR (test code = mL/min/1.73m2 5865739379) ARPITA (test code = ARPITA) Association of [...] tests). Lab Interpretation Abnormal (test code = 95140-2) [facility]UCOSE (AUTOMATED)2022-02-15 07:26:01 Test Item Value Reference Range Interpretation Comments POCT GLU (test code = 9245052789) 245 mg/dL 70-110 H Lab Interpretation (test code = Abnormal 31185-2) [facility] GLUCOSE (AUTOMATED)2022-02-15 07:26:01 Test Item Value Reference Range Interpretation Comments POCT GLU (test code = 6322627907) 245 mg/dL 70-110 H Lab Interpretation (test code = Abnormal 22359-2) [facility] GLUCOSE(AGE >30DAYS)2022-02-15 07:11:00 Test Item Value Reference Range Interpretation Comments POCT Glu (age>30days) (test code = 245 mg/dL 70-110 3342) Lab Interpretation (test code = Normal 64374-2) [facility] GLUCOSE(AGE >30DAYS)2022-02-15 07:11:00 Test Item Value Reference Range Interpretation Comments POCT Glu (age>30days) (test code = 245 mg/dL 70-110 3342) Lab Interpretation (test code = Normal 24147-7) [facility] 07:11:00 Test Item Value Reference Range Interpretation Comments POCT Glu (age>30days) (test code = 245 mg/dL 70-110 3342) Lab Interpretation (test code = Normal 86907-4) [facility]22-[facility]-15 05:57:25 Test Item Value Reference Range Interpretation Comments HGB A1C (test code = 12.7 % 4-5.7 H 4548-4) ARPITA (test code = ARPITA) Reference RangesNormal: <5.7%Prediabetes: 5.7 - 6.4%Diabetes: > 6.5% Lab Interpretation (test Abnormal code = 47375-4) [facility]2022-02-15 05:57:25 Test Item Value Reference Range Interpretation Comments HGB A1C (test code = 12.7 % 4-5.7 H 4548-4) ARPITA (test code = ARPITA) Reference RangesNormal: <5.7%Prediabetes: 5.7 - 6.4%Diabetes: > 6.5% Lab Interpretation (test Abnormal code = 27783-4) [facility]2022-02-15 05:57:25 Test Item Value Reference Range Interpretation Comments HGB A1C (test code = 12.7 % 4-5.7 H 4548-4) ARPITA (test code = ARPITA) Reference RangesNormal: <5.7%Prediabetes: 5.7 - 6.4%Diabetes: > 6.5% Lab Interpretation (test Abnormal code = 36074-9) [facility] [id number] 05:46:44 Test Item Value Reference Range Interpretation Comments MAGNESIUM (test code = 5153693384) 1.7 mg/dL 1.7-2.4 Lab Interpretation (test code = Normal 66730-9) [facility] [id number] 05:46:44 Test Item Value Reference Range Interpretation Comments MAGNESIUM (test code = 5487740768) 1.7 mg/dL 1.7-2.4 Lab Interpretation (test code = Normal 38443-5) [facility] [id number] 05:46:24 Test Item Value Reference Range Interpretation Comments PHOSPHORUS (test code = 0786251493) 4.0 mg/dL 2.5-5 Lab Interpretation (test code = Normal 44257-3) [facility] [id number] 05:46:24 Test Item Value Reference Range Interpretation Comments PHOSPHORUS (test code = 0179244210) 4.0 mg/dL 2.5-5 Lab Interpretation (test code = Normal 40542-6) [facility] [id number] 05:46:24 Test Item Value Reference Range Interpretation Comments PHOSPHORUS (test code = 0502794891) 4.0 mg/dL 2.5-5 Lab Interpretation (test code = Normal 47283-7) [facility] GLUCOSE (AUTOMATED)2022-02-15 05:11:10 Test Item Value Reference Range Interpretation Comments POCT GLU (test code = 8922534449) 410 mg/dL 70-110 H Lab Interpretation (test code = Abnormal 40339-8) [facility] GLUCOSE (AUTOMATED)2022-02-15 05:11:10 Test Item Value Reference Range Interpretation Comments POCT GLU (test code = 1488455420) 410 mg/dL 70-110 H Lab Interpretation (test code = Abnormal 86113-0) [facility] GLUCOSE(AGE >30DAYS)2022-02-15 05:11:00 Test Item Value Reference Range Interpretation Comments POCT Glu (age>30days) (test code = 410 mg/dL 70-110 A 3342) Lab Interpretation (test code = Abnormal 02264-7) [facility] GLUCOSE(AGE >30DAYS)2022-02-15 05:11:00 Test Item Value Reference Range Interpretation Comments POCT Glu (age>30days) (test code = 410 mg/dL 70-110 A 3342) Lab Interpretation (test code = Abnormal 82326-9) [facility] WITH [id number] 05:03:57 Test Item Value Reference Range Interpretation [...] RDW-SD (test code = 44.1 fL 38.5-51.6 33769-3) RDW-CV (test code = 13.8 % 12.1-15.4 788-0) PLT (test code = See_Comment H [Automated 777-3) message] The sy stem which generated this result transmitted reference range : 150 - 328 10*3/ ?L. The reference r boubacar was not used to interpret this result as normal/abnormal . MPV (test code = 12.2 fL 9.8-13 06799-4) IPF % (test code = 9.4 % 1.2-10.7 Platelet count 9856606036) measured by fluorescence method. NRBC/100 WBC (test See_Comment [Automat ed code = 8114470140) message] The system which generated this result transmitted reference range : 0.0 - 10.0 /100 WBCs. The refer ence range was not u sed to interpret th is result as normal/abnormal . NRBC x10^3 (test code See_Comment [Auto mated = 3503574585) message] The s ystem which generated this result transmitted reference range : 10*3/?L. The reference range was not used to interpret this result as normal/abnormal . GRAN MAT (NEUT) % 65.1 % (test code = 770-8) IMM GRAN % (test code 1.10 % = 8202929950) LYMPH % (test code = 22.4 % 736-9) MONO % (test code = 9.8 % 5905-5) EOS % (test code = 1.4 % 713-8) BASO % (test code = 0.2 % 706-2) GRAN MAT x10^3(ANC) 6.15 10*3/uL 1.99-6.95 (test code = 4810142693) IMM GRAN x10^3 (test 0.10 10*3/uL 0-0.06 H code = 0957168160) LYMPH x10^3 (test code 2.11 10*3/uL 1.09-3.23 = 731-0) MONO x10^3 (test code 0.92 10*3/uL 0.36-1.02 = 742-7) EOS x10^3 (test code = 0.13 10*3/uL 0.06-0.53 711-2) BASO x10^3 (test code 0.01-0.09 = 704-7) Lab Interpretation Abnormal (test code = 05651-6) [facility] WITH [id number] 05:03:57 Test Item Value Reference Range Interpretation Comments WBC (test code = See_Comment [Automated 1190-2) message] The sy stem which generated this result transmitted reference range : 4.20 - 10.70 10*3/?L. The reference range was not used to interpret this result as normal/abnormal . RBC (test code = See_Comment [Automated 869-8) message] The sy stem which generated this [...] RDW-SD (test code = 44.1 fL 38.5-51.6 53068-9) RDW-CV (test code = 13.8 % 12.1-15.4 788-0) PLT (test code = See_Comment H [Automated 777-3) message] The sy stem which generated this result transmitted reference range : 150 - 328 10*3/ ?L. The reference r boubacar was not used to interpret this result as normal/abnormal . MPV (test code = 12.2 fL 9.8-13 82166-8) IPF % (test code = 9.4 % 1.2-10.7 Platelet count 0869430482) measured by fluorescence method. NRBC/100 WBC (test See_Comment [Automat ed code = 2203485063) message] The system which generated this result transmitted reference range : 0.0 - 10.0 /100 WBCs. The refer ence range was not u sed to interpret th is result as normal/abnormal . NRBC x10^3 (test code See_Comment [Auto mated = 8241920655) message] The s ystem which generated this result transmitted reference range : 10*3/?L. The reference range was not used to interpret this result as normal/abnormal . GRAN MAT (NEUT) % 65.1 % (test code = 770-8) IMM GRAN % (test code 1.10 % = 1792831077) LYMPH % (test code = 22.4 % 736-9) MONO % (test code = 9.8 % 5905-5) EOS % (test code = 1.4 % 713-8) BASO % (test code = 0.2 % 706-2) GRAN MAT x10^3(ANC) 6.15 10*3/uL 1.99-6.95 (test code = 1888970614) IMM GRAN x10^3 (test 0.10 10*3/uL 0-0.06 H code = 6874427707) LYMPH x10^3 (test code 2.11 10*3/uL 1.09-3.23 = 731-0) MONO x10^3 (test code 0.92 10*3/uL 0.36-1.02 = 742-7) EOS x10^3 (test code = 0.13 10*3/uL 0.06-0.53 711-2) BASO x10^3 (test code 0.01-0.09 = 704-7) Lab Interpretation Abnormal (test code = 86998-8) [facility] METABOLIC PANEL (NA, K, CL, CO2, GLUCOSE, BUN, CREATININE, CA)2022-02-15 04:46:12 Test Item Value Reference Range Interpretation Comments NA (test code = 136 mmol/L 135-145 6216202872) K (test code = 5.1 mmol/L 3.5-5 H 4803744699) CL (test code = 106 mmol/L 98-108 4895352981) CO2 TOTAL (test code = 9 mmol/L 23-31 L 1554655734) AGAP (test code = 2-16 H 9481094370) BUN (test code = 11 mg/dL 7-23 5428322204) GLUCOSE (test code = 405 mg/dL 70-110 H 1685986489) CREATININE (test code = 0.62 mg/dL 0.6-1.25 4041533596) CALCIUM (test code = 9.5 mg/dL 8.6-10.6 0471156468) eGFR (test code = mL/min/1.73m2 3973334926) ARPITA (test code = ARPITA) Association of [...] tests). Lab Interpretation Abnormal (test code = 01326-7) [facility] METABOLIC PANEL (NA, K, CL, CO2, GLUCOSE, BUN, CREATININE, CA)2022-02-15 04:46:12 Test Item Value Reference Range Interpretation Comments NA (test code = 136 mmol/L 135-145 3871823554) K (test code = 5.1 mmol/L 3.5-5 H 7055486995) CL (test code = 106 mmol/L 98-108 5354984748) CO2 TOTAL (test code = 9 mmol/L 23-31 L 5175101957) AGAP (test code = 2-16 H 1181967711) BUN (test code = 11 mg/dL 7-23 2895811659) GLUCOSE (test code = 405 mg/dL 70-110 H 2025877750) CREATININE (test code = 0.62 mg/dL 0.6-1.25 7315089042) CALCIUM (test code = 9.5 mg/dL 8.6-10.6 5888683129) eGFR (test code = mL/min/1.73m2 4021698001) ARPITA (test code = ARPITA) Association of [...] tests). Lab Interpretation Abnormal (test code = 69249-2) [facility] [id number] 04:43:36 Test Item Value Reference Range Interpretation Comments PROTIME PATIENT (test See_Comment [Auto mated message] code = 5964-2) The system [employer] generated this result transmitted ref erence range: 12.0 - 1 4.7 Seconds. The re ference range was not u sed to interpret this result as normal/abnor mal. INR (test code = 6301-6) Nor mal INR <1.1; Warfarin Therap eutic range 2.0 to 3. 0 or 2.5 to 3.5, dep ending upon the indica tions. Lab Interpretation (test Normal code = 57863-9) [facility] / [id number] 04:43:36 Test Item Value Reference Range Interpretation Comments PROTIME PATIENT (test See_Comment [Auto mated message] code = 5964-2) The system [employer] generated this result transmitted ref erence range: 12.0 - 1 4.7 Seconds. The re ference range was not u sed to interpret this result as normal/abnor mal. INR (test code = 6301-6) Nor mal INR <1.1; Warfarin Therap eutic range 2.0 to 3. 0 or 2.5 to 3.5, dep ending upon the indica tions. Lab Interpretation (test Normal code = 11140-3) [facility] / [id number] 04:43:36 Test Item Value Reference Range Interpretation Comments PROTIME PATIENT (test See_Comment [Auto mated message] code = 5964-2) The system [employer] generated this result transmitted ref erence range: 12.0 - 1 4.7 Seconds. The re ference range was not u sed to interpret this result as normal/abnor mal. INR (test code = 6301-6) Nor mal INR <1.1; Warfarin Therap eutic range 2.0 to 3. 0 or 2.5 to 3.5, dep ending upon the indica tions. Lab Interpretation (test Normal code = 82418-8) [facility] (47281[facility] (ALB,T.PRO,BILI T,BU/BC,ALT,AST,ALK PHOS)2022-02-15 04:40:15 Test Item Value Reference Range Interpretation Comments TOTAL BILI (test code = 3458167819) 0.9 mg/dL 0.1-1.1 BILI UNCON (test code = 7551666571) 0.3 mg/dL 0.1-1.1 BILI CONJ (test code = 4159619447) 0.0 mg/dL 0-0.3 T PROTEIN (test code = 2766016018) 7.5 g/dL 6.3-8.2 ALBUMIN (test code = 9274775471) 4.0 g/dL 3.5-5 ALK PHOS (test code = 9021709847) 166 U/L 34-122 H ALTv (test code = 1742-6) 28 U/L 5-50 AST(SGOT) (test code = 2558138489) 22 U/L 13-40 Lab Interpretation (test code = Abnormal 37002-8) [facility] (05166) (ALB,T.PRO,BILI T,BU/BC,ALT,AST,ALK PHOS)2022-02-15 04:40:15 Test Item Value Reference Range Interpretation Comments TOTAL BILI (test code = 6786258784) 0.9 mg/dL 0.1-1.1 BILI UNCON (test code = 6632369138) 0.3 mg/dL 0.1-1.1 BILI CONJ (test code = 3868090222) 0.0 mg/dL 0-0.3 T PROTEIN (test code = 1349420704) 7.5 g/dL 6.3-8.2 ALBUMIN (test code = 5117970250) 4.0 g/dL 3.5-5 ALK PHOS (test code = 7363611552) 166 U/L 34-122 H ALTv (test code = 1742-6) 28 U/L 5-50 AST(SGOT) (test code = 6148176893) 22 U/L 13-40 Lab Interpretation (test code = Abnormal 25688-0) [facility] (75406[facility] (ALB,T.PRO,BILI T,BU/BC,ALT,AST,ALK PHOS)2022-02-15 04:40:15 Test Item Value Reference Range Interpretation Comments TOTAL BILI (test code = 9030923818) 0.9 mg/dL 0.1-1.1 BILI UNCON (test code = 1440404785) 0.3 mg/dL 0.1-1.1 BILI CONJ (test code = 8984541538) 0.0 mg/dL 0-0.3 T PROTEIN (test code = 1111633001) 7.5 g/dL 6.3-8.2 ALBUMIN (test code = 7867264850) 4.0 g/dL 3.5-5 ALK PHOS (test code = 6711662200) 166 U/L 34-122 H ALTv (test code = 1742-6) 28 U/L 5-50 AST(SGOT) (test code = 5117604003) 22 U/L 13-40 Lab Interpretation (test code = Abnormal 82050-0) [facility] 04:40:00 Test Item Value Reference Range Interpretation Comments LIPASE (test code = 7680098925) 239 U/L 0-220 H Lab Interpretation (test code = Abnormal 11664-3) [facility] 04:40:00 Test Item Value Reference Range Interpretation Comments LIPASE (test code = 3487693134) 239 U/L 0-220 H Lab Interpretation (test code = Abnormal 53159-1) [facility] 04:40:00 Test Item Value Reference Range Interpretation Comments LIPASE (test code = 6043849209) 239 U/L 0-220 H Lab Interpretation (test code = Abnormal 56542-6) [facility] HospitalBLOOD CULTURE [id number] 02:01:26 Test Item Value Reference Range Interpretation Comments Blood Culture-Aerobic No organisms No growth Previo us (test code = 38947-3) isolated prelim inary verified result was Culture [...] Culture-Anaerobic isolated preliminar y (test code = 38485-4) verifi ed result was Culture In Progress [...] CDT Lab Interpretation Normal (test code = 56174-3) [facility] GLUCOSE (AUTOMATED)2022-02-10 19:39:16 Test Item Value Reference Range Interpretation Comments POCT GLU (test code = 1205650906) 153 mg/dL 70-110 H Lab Interpretation (test code = Abnormal 82142-2) [facility] GLUCOSE (AUTOMATED)2022-02-10 16:42:59 Test Item Value Reference Range Interpretation Comments POCT GLU (test code = 0247083316) 311 mg/dL 70-110 H Lab Interpretation (test code = Abnormal 62938-4) [facility] GLUCOSE (AUTOMATED)2022-02-10 01:48:17 Test Item Value Reference Range Interpretation Comments POCT GLU (test code = 5128205164) 253 mg/dL 70-110 H Lab Interpretation (test code = Abnormal 99081-2) [facility] GLUCOSE (AUTOMATED)2022-02-09 21:48:07 Test Item Value Reference Range Interpretation Comments POCT GLU (test code = 5677892987) 279 mg/dL 70-110 H Lab Interpretation (test code = Abnormal 66437-0) [facility]2022-02-09 16:48:09 Test Item Value Reference Range Interpretation Comments POCT GLU (test code = 7642722230) 275 mg/dL 70-110 H Lab Interpretation (test code = Abnormal 53584-8) [facility] (NA, K, CL, CO2, GLUCOSE, BUN, CREATININE, CA)2022-02-09 15:41:54 Test Item Value Reference Range Interpretation Comments NA (test code = 148 mmol/L 135-145 H 6802873547) K (test code = 4.3 mmol/L 3.5-5 3415975747) CL (test code = 123 mmol/L 98-108 H 5156630315) CO2 TOTAL (test code = 19 mmol/L 23-31 L 9585462207) AGAP (test code = 2-16 8879401866) BUN (test code = 23 mg/dL 7-23 0010134912) GLUCOSE (test code = 305 mg/dL 70-110 H 8790397819) CREATININE (test code = 0.61 mg/dL 0.6-1.25 0881392699) CALCIUM (test code = 8.5 mg/dL 8.6-10.6 L 5947516151) eGFR (test code = mL/min/1.73m2 2287534145) ARPITA (test code = ARPITA) Association of [...] tests). Lab Interpretation Abnormal (test code = 08259-4) [facility]UM2022-[facility] 15:17:07 Test Item Value Reference Range Interpretation Comments MAGNESIUM (test code = 5977129043) 1.8 mg/dL 1.7-2.4 Lab Interpretation (test code = Normal 94694-7) [facility]PHOS[facility]US2022-07-29 15:17:07 Test Item Value Reference Range Interpretation Comments PHOSPHORUS (test code = 6625314764) 2.2 mg/dL 2.5-5 L Lab Interpretation (test code = Abnormal 41831-5) [facility] GLUCOSE (AUTOMATED)2022-02-09 12:48:51 Test Item Value Reference Range Interpretation Comments POCT GLU (test code = 8826556639) 274 mg/dL 70-110 H Lab Interpretation (test code = Abnormal 58995-2) [facility] GLUCOSE (AUTOMATED)2022-02-09 01:10:30 Test Item Value Reference Range Interpretation Comments POCT GLU (test code = 1038488058) 248 mg/dL 70-110 H Lab Interpretation (test code = Abnormal 49847-1) [facility] GLUCOSE (AUTOMATED)2022-02-09 01:10:30 Test Item Value Reference Range Interpretation Comments POCT GLU (test code = 8936704759) 300 mg/dL 70-110 H Lab Interpretation (test code = Abnormal 25019-6) [facility] GLUCOSE (AUTOMATED)2022-02-08 16:52:44 Test Item Value Reference Range Interpretation Comments POCT GLU (test code = 3757445244) 296 mg/dL 70-110 H Lab Interpretation (test code = Abnormal 54635-2) [facility] GLUCOSE (AUTOMATED)2022-02-08 16:52:43 Test Item Value Reference Range Interpretation Comments POCT GLU (test code = 7374138525) 345 mg/dL 70-110 H Lab Interpretation (test code = Abnormal 49466-7) [facility] 16:52:38 Test Item Value Reference Range Interpretation Comments POCT GLU (test code = 6780725506) 363 mg/dL 70-110 H Lab Interpretation (test code = Abnormal 52185-7) [facility] GLUCOSE (AUTOMATED)2022-02-08 16:52:38 Test Item Value Reference Range Interpretation Comments POCT GLU (test code = 8893048244) 444 mg/dL 70-110 H Lab Interpretation (test code = Abnormal 11678-6) [facility] GLUCOSE (AUTOMATED)2022-02-08 16:52:38 Test Item Value Reference Range Interpretation Comments POCT GLU (test code = 4798362319) 324 mg/dL 70-110 H Lab Interpretation (test code = Abnormal 42929-5) [facility] GLUCOSE (AUTOMATED)2022-02-08 16:52:38 Test Item Value Reference Range Interpretation Comments POCT GLU (test code = 6293747483) 303 mg/dL 70-110 H Lab Interpretation (test code = Abnormal 67527-5) [facility] GLUCOSE (AUTOMATED)2022-02-08 16:52:38 Test Item Value Reference Range Interpretation Comments POCT GLU (test code = 7558352126) 288 mg/dL 70-110 H Lab Interpretation (test code = Abnormal 12988-2) [facility] GLUCOSE (AUTOMATED)2022-02-08 16:37:12 Test Item Value Reference Range Interpretation Comments POCT GLU (test code = 8459415445) 241 mg/dL 70-110 H Lab Interpretation (test code = Abnormal 66666-7) [facility] GLUCOSE (AUTOMATED)2022-02-08 13:14:11 Test Item Value Reference Range Interpretation Comments POCT GLU (test code = 0089532618) 264 mg/dL 70-110 H Lab Interpretation (test code = Abnormal 03962-7) [facility] GLUCOSE (AUTOMATED)2022-02-08 11:04:52 Test Item Value Reference Range Interpretation Comments POCT GLU (test code = 4683432688) 257 mg/dL 70-110 H Lab Interpretation (test code = Abnormal 93843-0) [facility] GLUCOSE (AUTOMATED)2022-02-08 07:51:27 Test Item Value Reference Range Interpretation Comments POCT GLU (test code = 2351726910) 228 mg/dL 70-110 H Lab Interpretation (test code = Abnormal 49359-2) [facility] GLUCOSE (AUTOMATED)2022-02-08 03:43:14 Test Item Value Reference Range Interpretation Comments POCT GLU (test code = 5797468981) 269 mg/dL 70-110 H Lab Interpretation (test code = Abnormal 65899-0) [facility] GLUCOSE (AUTOMATED)2022-02-08 00:53:27 Test Item Value Reference Range Interpretation Comments POCT GLU (test code = 9210924964) 342 mg/dL 70-110 H Lab Interpretation (test code = Abnormal 14258-6) [facility] Metabolic Panel (Na, K, Cl, CO2, Glucose, BUN, Creatinine, Ca)2022-02-08 00:26:35 Test Item Value Reference Range Interpretation Comments NA (test code = 161 mmol/L 135-145 HH 6588802712) K (test code = 5.3 mmol/L 3.5-5 H 5131217658) CL (test code = 131 mmol/L 98-108 H 0481594189) CO2 TOTAL (test code = 14 mmol/L 23-31 L 3762452715) AGAP (test code = 2-16 3242899277) BUN (test code = 40 mg/dL 7-23 H 3468808675) GLUCOSE (test code = 363 mg/dL 70-110 H 6633094130) CREATININE (test code = 1.31 mg/dL 0.6-1.25 H 8730373559) CALCIUM (test code = 9.0 mg/dL 8.6-10.6 3448987074) eGFR (test code = mL/min/1.73m2 6999895225) ARPITA (test code = RAPITA) Association of Glomerular Filtration Rate (GFR) and [...] tests). Lab Interpretation Abnormal (test code = 84451-9) [facility] GLUCOSE (AUTOMATED)2022-02-07 22:31:31 Test Item Value Reference Range Interpretation Comments POCT GLU (test code = 7069287056) 349 mg/dL 70-110 H Lab Interpretation (test code = Abnormal 76146-9) [facility] GLUCOSE (AUTOMATED)2022-02-07 20:57:05 Test Item Value Reference Range Interpretation Comments POCT GLU (test code = 8587124997) 70-110 HH Lab Interpretation (test code = Abnormal 93728-0) [facility] GLUCOSE (AUTOMATED)2022-02-07 20:57:00 Test Item Value Reference Range Interpretation Comments POCT GLU (test code = 1761122040) 70-110 HH Lab Interpretation (test code = Abnormal 73748-5) [facility] GLUCOSE (AUTOMATED)2022-02-07 20:57:00 Test Item Value Reference Range Interpretation Comments POCT GLU (test code = 1151472848) 70-110 HH Lab Interpretation (test code = Abnormal 71174-7) [facility] 20:57:00 Test Item Value Reference Range Interpretation Comments POCT GLU (test code = 9417554261) 70-110 HH Lab Interpretation (test code = Abnormal 07642-2) [facility] HospitalLactic Acid Whole [id number] 12:58:42 Test Item Value Reference Range Interpretation Comments LACTIC ACID (test code = 4.32 mmol/L 0.5-2.2 H 3865158922) Lab Interpretation (test code = Abnormal 62078-4) [facility] HospitalPhosphorus [id number] 03:51:48 Test Item Value Reference Range Interpretation Comments PHOSPHORUS (test code = 6.7 mg/dL 2.5-5 H Slig ht hemolysis 9841488833) Lab Interpretation (test Abnormal code = 56502-2) [facility] HospitalMagnesium [id number] 03:51:48 Test Item Value Reference Range Interpretation Comments MAGNESIUM (test code = 5906195208) 2.8 mg/dL 1.7-2.4 H Lab Interpretation (test code = Abnormal 65272-5) [facility]COMP[facility] METABOLIC PANEL (42826)2022-02-07 02:16:52 Test Item Value Reference Range Interpretation Comments NA (test code = 166 mmol/L 135-145 HH 6825660979) K (test code = 5.2 mmol/L 3.5-5 H 2965392853) CL (test code = 123 mmol/L 98-108 H 4565248997) CO2 TOTAL (test code = 12 mmol/L 23-31 L 4183266803) AGAP (test code = 2-16 H 7296272314) BUN (test code = 35 mg/dL 7-23 H 4822197682) GLUCOSE (test code = 941 mg/dL 70-110 HH 5614129570) CREATININE (test code = 1.51 mg/dL 0.6-1.25 H 8392848129) TOTAL BILI (test code = 1.1 mg/dL 0.1-1.3 1577305227) CALCIUM (test code = 10.7 mg/dL 8.6-10.6 H 6509864524) T PROTEIN (test code = 8.2 g/dL 6.3-8.2 2343555411) ALBUMIN (test code = 4.5 g/dL 3.5-5 0269959968) ALK PHOS (test code = 201 U/L 34-122 H 1542171669) ALTv (test code = 43 U/L 5-50 1742-6) AST(SGOT) (test code = 27 U/L 13-40 3233470477) eGFR (test code = mL/min/1.73m2 5217037766) ARPITA (test code = ARPITA) Association of [...] tests). Lab Interpretation Abnormal (test code = 19169-7) [facility] HospitalFAROOQ [id number] 02:12:40 Test Item Value Reference Interpretation Comments Range TROPONIN I (test 0.005 ng/mL See_Comment [Automated code = 3562598029) message] The system which generated this result [...] biotin. Lab Interpretation Normal (test code = 42478-2) [facility] HospitalSALICYLATE2022-07-27 02:06:11 SALICYLATE<10mg/L02/06/2022 9:06 PM [facility]Therapeutic Range: ? Analgesic and Antipyretic Use ? 20- 100 mg/L ? ? Anti-Inflammatory Use ? 100-250 mg/L Toxic Range: ? Greater than 300 mg/LUnFaith Community HospitalSALICYLATE2022-07-27 02:06:11SALICYLATE<10mg/L02/06/2022 9:06 PM [facility]ORYTherapeutic Range: ? Analgesic and Antipyretic Use ? 20-100 mg/L ? ? Anti-Inflammatory Use ? 100-250 mg/L Toxic Range: ? Greater than 300 mg/L [facility] HospitalETHANOL2022-07-27 02:05:51 ALCOHOL<10mg/dL02/06/2022 9:05 PM [facility]<10 Ygbknhwf41-237 Toxic>100 Depression of TEXTILE TECHNOLOGIST>400 Fatalities ReportedSt[facility] HospitalETHANOL2022-07-27 02:05:51 ALCOHOL<10mg/dL02/06/2022 9:05 PM [facility]<10 Eovhcpzr09-112 Toxic>100 Depression of TEXTILE TECHNOLOGIST>400 Fatalities ReportedUnFaith Community HospitalACETAMINOPHEN2022-07-27 02:03:04 Test Item Value Reference Range Interpretation Comments ACETAMINOP (test code = 10-30 L 3641964624) ARPITA (test code = ARPITA) Toxic: Greater than 200 ug/mL @ 4 hour post ingestion or greater than 50 ug/mL @ 12 hour post ingestion Lab Interpretation (test Abnormal code = 09044-0) [facility] HospitalACETAMINOPHEN2022-07-27 02:03:04 Test Item Value Reference Range Interpretation Comments ACETAMINOP (test code = 10-30 L 9361465779) ARPITA (test code = ARPITA) Toxic: Greater than 200 ug/mL @ 4 hour post ingestion or greater than 50 ug/mL @ 12 hour post ingestion Lab Interpretation (test Abnormal code = 27636-6) [facility] HospitalLIPASE2022-[facility]-27 02:01:02 Test Item Value Reference Range Interpretation Comments LIPASE (test code = 9913986151) 246 U/L 0-220 H Lab Interpretation (test code = Abnormal 71595-9) [facility] WITH [id number] 01:12:41 Test Item Value Reference Range Interpretation Comments WBC (test code = See_Comment H [Automated 90-2) message] The system which generated this result transmit lester reference range : 4.20 - 10.70 10*3/?L. The reference range was not used to interpret this result as normal/abnormal . RBC (test code = See_Comment H [Automated 389-8) message] The system which generated this result [...] RDW-SD (test code = 50.8 fL 38.5-51.6 19960-5) RDW-CV (test code = 16.4 % 12.1-15.4 H 788-0) PLT (test code = See_Comment H [Automated 777-3) message] The system which generated this result transmit lester reference range : 150 - 328 10*3/ ?L. The reference range was not u sed to interpret th is result as normal/abnormal . MPV (test code = 11.6 fL 9.8-13 05284-5) NRBC/100 WBC (test See_Comment [Automat ed code = 8989727465) message] The system which generated this result transmit lester reference range : 0.0 - 10.0 /100 WBCs. The reference range was not used to interpret this result as normal/abnormal . NRBC x10^3 (test code See_Comment [Auto mated = 5362819973) message] The system which generated this result transmit lester reference range : 10*3/?L. The reference range was not used to interpret this result as normal/abnormal . SEG % (test code = 77 % 33-76 H 34543-7) BAND % (test code = 9 % 0-1 H 67474-6) LYMPH % (test code = 7 % 14-54 L 72719-0) MONO % (test code = 7 % 0-4 H 79533-9) ANC (test code = 15.98 10*3/uL 1.99-6.95 H 753-4) ALBERT CELLS (test code 2+ See_Comment A [Auto mated = 7790-9) message] The system which generated this result transmit lester reference range : (none). The reference range was not used to interpret this result as normal/abnormal . Lab Interpretation Abnormal (test code = 06120-5) [facility] GLUCOSE (AUTOMATED)2022-01-27 01:30:22 Test Item Value Reference Range Interpretation Comments POCT GLU (test code = 8894954458) 392 mg/dL 70-110 H Lab Interpretation (test code = Abnormal 68029-2) [facility] GLUCOSE(AGE >30DAYS)2022-01-27 01:30:00 Test Item Value Reference Range Interpretation Comments POCT Glu (age>30days) 392 mg/dL, 70-110 (test code = 3342) [facility] Lab Interpretation (test Normal code = 39269-9) [facility] GLUCOSE (AUTOMATED)2022-01-27 00:43:22 Test Item Value Reference Range Interpretation Comments POCT GLU (test code = 7952369721) 430 mg/dL 70-110 H Lab Interpretation (test code = Abnormal 39941-0) [facility] GLUCOSE (AUTOMATED)2022-01-26 23:29:00 Test Item Value Reference Range Interpretation Comments POCT GLU (test code = 0840706441) 493 mg/dL 70-110 HH Lab Interpretation (test code = Abnormal 81762-8) [facility] METABOLIC PANEL (NA, K, CL, CO2, GLUCOSE, BUN, CREATININE, CA)2022-01-26 22:56:10 Test Item Value Reference Range Interpretation Comments NA (test code = 132 mmol/L 135-145 L 8206257924) K (test code = 4.4 mmol/L 3.5-5 3111049370) CL (test code = 98 mmol/L 98-108 0204072820) CO2 TOTAL (test code = 19 mmol/L 23-31 L 0564604400) AGAP (test code = 2-16 6015175185) BUN (test code = 11 mg/dL 7-23 3046910052) GLUCOSE (test code = 519 mg/dL 70-110 HH 9159950090) CREATININE (test code = 0.55 mg/dL 0.6-1.25 L 7871662302) CALCIUM (test code = 9.5 mg/dL 8.6-10.6 5100086330) eGFR (test code = mL/min/1.73m2 6817869339) ARPITA (test code = ARPITA) Association of [...] tests). Lab Interpretation Abnormal (test code = 55503-2) [facility] WITH [id number] 22:45:19 Test Item Value Reference Range Interpretation Comments WBC (test code = See_Comment [Automated 2239-2) message] The sy stem which generated this result transmitted reference range : 4.20 - 10.70 10*3/?L. The reference range was not used to interpret this result as normal/abnormal . RBC (test code = See_Comment [Automated 190-8) message] The sy stem which generated this [...] RDW-SD (test code = 41.7 fL 38.5-51.6 49182-0) RDW-CV (test code = 13.6 % 12.1-15.4 788-0) PLT (test code = See_Comment H [Automated 777-3) message] The sy stem which generated this result transmitted reference range : 150 - 328 10*3/ ?L. The reference r boubacar was not used to interpret this result as normal/abnormal . MPV (test code = 10.6 fL 9.8-13 38600-9) NRBC/100 WBC (test See_Comment [Automat ed code = 7121990673) message] The system which generated this result transmitted reference range : 0.0 - 10.0 /100 WBCs. The refer ence range was not u sed to interpret th is result as normal/abnormal . NRBC x10^3 (test code See_Comment [Auto mated = 3712131497) message] The s ystem which generated this result transmitted reference range : 10*3/?L. The reference range was not used to interpret this result as normal/abnormal . GRAN MAT (NEUT) % 66.6 % (test code = 770-8) IMM GRAN % (test code 0.40 % = 2429445011) LYMPH % (test code = 20.5 % 736-9) MONO % (test code = 10.9 % 5905-5) EOS % (test code = 1.5 % 713-8) BASO % (test code = 0.1 % 706-2) GRAN MAT x10^3(ANC) 4.88 10*3/uL 1.99-6.95 (test code = 8435400235) IMM GRAN x10^3 (test 0.03 10*3/uL 0-0.06 code = 8245256305) LYMPH x10^3 (test code 1.50 10*3/uL 1.09-3.23 = 731-0) MONO x10^3 (test code 0.80 10*3/uL 0.36-1.02 = 742-7) EOS x10^3 (test code = 0.11 10*3/uL 0.06-0.53 711-2) BASO x10^3 (test code 0.01-0.09 = 704-7) Lab Interpretation Abnormal (test code = 82380-9) [facility] WITH [id number] 11:05:43 Test Item Value Reference Range Interpretation [...] RDW-SD (test code = 41.7 fL 38.5-51.6 85544-4) RDW-CV (test code = 13.4 % 12.1-15.4 788-0) PLT (test code = See_Comment H [Automated 777-3) message] The sy stem which generated this result transmitted reference range : 150 - 328 10*3/ ?L. The reference r boubacar was not used to interpret this result as normal/abnormal . MPV (test code = 10.3 fL 9.8-13.0 17179-0) NRBC/100 WBC (test See_Comment [Automat ed code = 2010543697) message] The system which generated this result transmitted reference range : 0.0 - 10.0 /100 WBCs. The refer ence range was not u sed to interpret th is result as normal/abnormal . NRBC x10^3 (test code <0.01 See_Comment [Auto mated = 6126923270) message] The s ystem which generated this result transmitted reference range : 10*3/?L. The reference range was not used to interpret this result as normal/abnormal . GRAN MAT (NEUT) % 71.2 % (test code = 770-8) IMM GRAN % (test code 1.30 % = 9402757683) LYMPH % (test code = 18.2 % 736-9) MONO % (test code = 7.1 % 5905-5) EOS % (test code = 1.9 % 713-8) BASO % (test code = 0.3 % 706-2) GRAN MAT x10^3(ANC) 8.37 10*3/uL 1.99-6.95 H (test code = 8681981571) IMM GRAN x10^3 (test 0.15 10*3/uL 0.00-0.06 H code = 0485263931) LYMPH x10^3 (test code 2.14 10*3/uL 1.09-3.23 = 731-0) MONO x10^3 (test code 0.84 10*3/uL 0.36-1.02 = 742-7) EOS x10^3 (test code = 0.22 10*3/uL 0.06-0.53 711-2) BASO x10^3 (test code 0.04 10*3/uL 0.01-0.09 = 704-7) Lab Interpretation Abnormal (test code = 53546-2) [facility]. METABOLIC PANEL (52525)2022-01-17 11:03:21 Test Item Value Reference Range Interpretation Comments NA (test code = 133 mmol/L 135-145 L 5143075570) K (test code = 4.3 mmol/L 3.5-5.0 9763008194) CL (test code = 99 mmol/L 98-108 4253046414) CO2 TOTAL (test code = 20 mmol/L 23-31 L 8596517391) AGAP (test code = 2-16 7555544934) BUN (test code = 11 mg/dL 7-23 6578591226) GLUCOSE (test code = 357 mg/dL 70-110 H 4752614907) CREATININE (test code = 0.52 mg/dL 0.60-1.25 L 4916096826) TOTAL BILI (test code = 0.7 mg/dL 0.1-1.9 1912801038) CALCIUM (test code = 9.6 mg/dL 8.6-10.6 1511343951) T PROTEIN (test code = 7.5 g/dL 6.3-8.2 0683650340) ALBUMIN (test code = 4.2 g/dL 3.5-5.0 1437985340) ALK PHOS (test code = 185 U/L 34-122 H 4940038997) ALTv (test code = 78 U/L 5-50 H 1742-6) AST(SGOT) (test code = 18 U/L 13-40 2173234447) eGFR (test code = mL/min/1.73m2 9583286954) ARPITA (test code = ARPITA) Association of [...] tests). Lab Interpretation Abnormal (test code = 84151-0) [facility] 11:02:41 Test Item Value Reference Range Interpretation Comments LIPASE (test code = 3108835114) 63 U/L 0-220 Lab Interpretation (test code = Normal 73404-1) [facility] GLUCOSE (AUTOMATED)2022-01-12 22:54:04 Test Item Value Reference Range Interpretation Comments POCT GLU (test code = 9130018649) 361 mg/dL 70-110 H Lab Interpretation (test code = Abnormal 90311-3) [facility] GLUCOSE (AUTOMATED)2022-01-12 12:19:07 Test Item Value Reference Range Interpretation Comments POCT GLU (test code = 6664783202) 390 mg/dL 70-110 H Lab Interpretation (test code = Abnormal 11074-9) [facility] GLUCOSE (AUTOMATED)2022-01-12 04:48:35 Test Item Value Reference Range Interpretation Comments POCT GLU (test code = 5455671996) 412 mg/dL 70-110 H Lab Interpretation (test code = Abnormal 18805-7) [facility] GLUCOSE (AUTOMATED)2022-01-12 01:44:33 Test Item Value Reference Range Interpretation Comments POCT GLU (test code = 5049767366) 376 mg/dL 70-110 H Lab Interpretation (test code = Abnormal 01214-5) [facility] GLUCOSE (AUTOMATED)2022-01-11 21:51:37 Test Item Value Reference Range Interpretation Comments POCT GLU (test code = 4105757397) 267 mg/dL 70-110 H Lab Interpretation (test code = Abnormal 61470-7) [facility] GLUCOSE (AUTOMATED)2022-01-11 17:05:21 Test Item Value Reference Range Interpretation Comments POCT GLU (test code = 9102966792) 377 mg/dL 70-110 H Lab Interpretation (test code = Abnormal 24817-4) [facility] GLUCOSE (AUTOMATED)2022-01-11 13:10:54 Test Item Value Reference Range Interpretation Comments POCT GLU (test code = 9734642913) 495 mg/dL 70-110 HH Lab Interpretation (test code = Abnormal 28093-0) [facility] GLUCOSE (AUTOMATED)2022-01-11 08:34:04 Test Item Value Reference Range Interpretation Comments POCT GLU (test code = 3467935838) 427 mg/dL 70-110 H Lab Interpretation (test code = Abnormal 29636-2) [facility] GLUCOSE (AUTOMATED)2022-01-11 05:46:02 Test Item Value Reference Range Interpretation Comments POCT GLU (test code = 3956284865) 451 mg/dL 70-110 HH Lab Interpretation (test code = Abnormal 90923-6) [facility] GLUCOSE (AUTOMATED)2022-01-11 02:44:38 Test Item Value Reference Range Interpretation Comments POCT GLU (test code = 0198168474) 429 mg/dL 70-110 H Lab Interpretation (test code = Abnormal 01375-3) [facility] GLUCOSE (AUTOMATED)2022-01-10 22:38:24 Test Item Value Reference Range Interpretation Comments POCT GLU (test code = 2277103711) 404 mg/dL 70-110 H Lab Interpretation (test code = Abnormal 77130-9) [facility] GLUCOSE (AUTOMATED)2022-01-10 18:05:20 Test Item Value Reference Range Interpretation Comments POCT GLU (test code = 8324362188) 423 mg/dL 70-110 H Lab Interpretation (test code = Abnormal 45833-6) [facility] METABOLIC PANEL (NA, K, CL, CO2, GLUCOSE, BUN, CREATININE, CA)2022-01-10 14:56:25 Test Item Value Reference Range Interpretation Comments NA (test code = 135 mmol/L 135-145 7884849671) K (test code = 4.0 mmol/L 3.5-5.0 0949462158) CL (test code = 102 mmol/L 98-108 3136394722) CO2 TOTAL (test code = 22 mmol/L 23-31 L 7989449911) AGAP (test code = 2-16 9160660161) BUN (test code = 13 mg/dL 7-23 7986310038) GLUCOSE (test code = 547 mg/dL 70-110 HH 5991543215) CREATININE (test code = 0.65 mg/dL 0.60-1.25 6933401285) CALCIUM (test code = 8.6 mg/dL 8.6-10.6 5755741387) eGFR (test code = mL/min/1.73m2 4268655439) ARPITA (test code = ARPITA) Association of [...] tests). Lab Interpretation Abnormal (test code = 78827-6) [facility] GLUCOSE (AUTOMATED)2022-01-10 13:36:27 Test Item Value Reference Range Interpretation Comments POCT GLU (test code = 2926896497) 526 mg/dL 70-110 HH Lab Interpretation (test code = Abnormal 98389-2) [facility] GLUCOSE (AUTOMATED)2022-01-10 12:52:44 Test Item Value Reference Range Interpretation Comments POCT GLU (test code = 3546655360) >600 70-110 HH Lab Interpretation (test code = Abnormal 46867-0) [facility] GLUCOSE (AUTOMATED)2022-01-10 12:52:44 Test Item Value Reference Range Interpretation Comments POCT GLU (test code = 1847632050) >600 70-110 HH Lab Interpretation (test code = Abnormal 13009-9) [facility] GLUCOSE (AUTOMATED)2022-01-10 11:02:02 Test Item Value Reference Range Interpretation Comments POCT GLU (test code = 9271768175) 521 mg/dL 70-110 HH Lab Interpretation (test code = Abnormal 84656-6) [facility]10 07:22:18 Test Item Value Reference Range Interpretation Comments POCT GLU (test code = 8300112856) 534 mg/dL 70-110 HH Lab Interpretation (test code = Abnormal 47549-9) [facility] METABOLIC PANEL (NA, K, CL, CO2, GLUCOSE, BUN, CREATININE, CA)2022-01-10 06:34:51 Test Item Value Reference Range Interpretation Comments NA (test code = 133 mmol/L 135-145 L 2310563764) K (test code = 4.9 mmol/L 3.5-5.0 Slight 5537781541) hemolysis CL (test code = 96 mmol/L 98-108 L 6071238247) CO2 TOTAL (test code 21 mmol/L 23-31 L = 4279392597) AGAP (test code = 2-16 6259929450) BUN (test code = 12 mg/dL 7-23 Slight 1833996814) hemolysis GLUCOSE (test code = 639 mg/dL 70-110 HH 0411579530) CREATININE (test code 0.46 mg/dL 0.60-1.25 L = 5312278814) CALCIUM (test code = 9.7 mg/dL 8.6-10.6 3963437846) eGFR (test code = mL/min/1.73m2 1476259590) ARPITA (test code = ARPITA) Association of [...] tests). Lab Interpretation Abnormal (test code = 60382-5) [facility]. METABOLIC PANEL (48137)2022-01-10 02:59:57 Test Item Value Reference Range Interpretation Comments NA (test code = 126 mmol/L 135-145 L 1165707663) K (test code = 5.2 mmol/L 3.5-5.0 H 9839362959) CL (test code = 89 mmol/L 98-108 L 9976019577) CO2 TOTAL (test code = 20 mmol/L 23-31 L 8931000465) AGAP (test code = 2-16 H 5219998078) BUN (test code = 12 mg/dL 7-23 6264880815) GLUCOSE (test code = 856 mg/dL 70-110 HH 7324160493) CREATININE (test code = 0.49 mg/dL 0.60-1.25 L 8433466413) TOTAL BILI (test code = 0.7 mg/dL 0.1-1.4 4800718542) CALCIUM (test code = 10.2 mg/dL 8.6-10.6 7076401027) T PROTEIN (test code = 8.2 g/dL 6.3-8.2 0616164651) ALBUMIN (test code = 4.5 g/dL 3.5-5.0 8089625306) ALK PHOS (test code = 186 U/L 34-122 H 4448716231) ALTv (test code = 27 U/L 5-50 1742-6) AST(SGOT) (test code = 18 U/L 13-40 2774943436) eGFR (test code = mL/min/1.73m2 5592870949) ARPITA (test code = ARPITA) Association of [...] tests). Lab Interpretation Abnormal (test code = 96858-7) [facility] 02:42:28 Test Item Value Reference Range Interpretation Comments LIPASE (test code = 3951840911) 146 U/L 0-220 Lab Interpretation (test code = Normal 89896-5) [facility] WITH [id number] 02:34:07 Test Item Value Reference Range Interpretation Comments WBC (test code = See_Comment [Automated 7324-2) message] The sy stem which generated this result transmitted reference range : 4.20 - 10.70 10*3/?L. The reference range was not used to interpret this result as normal/abnormal . RBC (test code = See_Comment [Automated 836-5) message] The sy stem which generated this [...] RDW-SD (test code = 42.0 fL 38.5-51.6 68853-3) RDW-CV (test code = 13.5 % 12.1-15.4 788-0) PLT (test code = See_Comment H [Automated 777-3) message] The sy stem which generated this result transmitted reference range : 150 - 328 10*3/ ?L. The reference r boubacar was not used to interpret this result as normal/abnormal . MPV (test code = 10.5 fL 9.8-13.0 54958-5) NRBC/100 WBC (test See_Comment [Automat ed code = 1255415676) message] The system which generated this result transmitted reference range : 0.0 - 10.0 /100 WBCs. The refer ence range was not u sed to interpret th is result as normal/abnormal . NRBC x10^3 (test code <0.01 See_Comment [Auto mated = 6769560654) message] The s ystem which generated this result transmitted reference range : 10*3/?L. The reference range was not used to interpret this result as normal/abnormal . GRAN MAT (NEUT) % 67.5 % (test code = 770-8) IMM GRAN % (test code 0.70 % = 4893824957) LYMPH % (test code = 21.7 % 736-9) MONO % (test code = 8.4 % 5905-5) EOS % (test code = 1.3 % 713-8) BASO % (test code = 0.4 % 706-2) GRAN MAT x10^3(ANC) 6.61 10*3/uL 1.99-6.95 (test code = 9403766782) IMM GRAN x10^3 (test 0.07 10*3/uL 0.00-0.06 H code = 4083847240) LYMPH x10^3 (test code 2.12 10*3/uL 1.09-3.23 = 731-0) MONO x10^3 (test code 0.82 10*3/uL 0.36-1.02 = 742-7) EOS x10^3 (test code = 0.13 10*3/uL 0.06-0.53 711-2) BASO x10^3 (test code 0.04 10*3/uL 0.01-0.09 = 704-7) Lab Interpretation Abnormal (test code = 17817-3) [facility]49059[facility] (ALB,T.PRO,BILI T,BU/BC,ALT,AST,ALK PHOS)2022-01-06 13:57:09 Test Item Value Reference Range Interpretation Comments TOTAL BILI (test code = 9423856011) 0.7 mg/dL 0.1-1.1 BILI UNCON (test code = 9684368395) 0.3 mg/dL 0.1-1.1 BILI CONJ (test code = 9313692212) 0.0 mg/dL 0.0-0.3 T PROTEIN (test code = 8377826814) 7.5 g/dL 6.3-8.2 ALBUMIN (test code = 6023824907) 3.8 g/dL 3.5-5.0 ALK PHOS (test code = 7492274816) 161 U/L 34-122 H ALTv (test code = 1742-6) 44 U/L 5-50 AST(SGOT) (test code = 7154505450) 47 U/L 13-40 H Lab Interpretation (test code = Abnormal 21386-1) [facility] (NA, K, CL, CO2, GLUCOSE, BUN, CREATININE, CA)2022-01-06 10:48:59 Test Item Value Reference Range Interpretation Comments NA (test code = 136 mmol/L 135-145 1823209693) K (test code = 3.8 mmol/L 3.5-5.0 5393351845) CL (test code = 101 mmol/L 98-108 7531302925) CO2 TOTAL (test code = 22 mmol/L 23-31 L 8978189822) AGAP (test code = 2-16 9558366379) BUN (test code = 16 mg/dL 7-23 2407646171) GLUCOSE (test code = 358 mg/dL 70-110 H 2651376311) CREATININE (test code = 0.63 mg/dL 0.60-1.25 0162733419) CALCIUM (test code = 9.2 mg/dL 8.6-10.6 3423868455) eGFR (test code = mL/min/1.73m2 1752491199) ARPITA (test code = ARPITA) Association of [...] tests). Lab Interpretation Abnormal (test code = 09844-3) [facility] WITH [id number] 10:01:35 Test Item Value Reference Range Interpretation [...] RDW-SD (test code = 41.6 fL 38.5-51.6 81375-4) RDW-CV (test code = 13.4 % 12.1-15.4 788-0) PLT (test code = See_Comment H [Automated 777-3) message] The sy stem which generated this result transmitted reference range : 150 - 328 10*3/ ?L. The reference r boubacar was not used to interpret this result as normal/abnormal . MPV (test code = 11.0 fL 9.8-13.0 39628-6) NRBC/100 WBC (test See_Comment [Automat ed code = [id number]) message] The system which generated this result transmitted reference range : 0.0 - 10.0 /100 WBCs. The refer ence range was not u sed to interpret th is result as normal/abnormal . NRBC x10^3 (test code <0.01 See_Comment [Auto mated = [id number]) message] The s ystem which generated this result transmitted reference range : 10*3/?L. The reference range was not used to interpret this result as normal/abnormal . GRAN MAT (NEUT) % 62.6 % (test code = 770-8) IMM GRAN % (test code 0.40 % = 5625109766) LYMPH % (test code = 23.2 % 736-9) MONO % (test code = 9.6 % 5905-5) EOS % (test code = 3.8 % 713-8) BASO % (test code = 0.4 % 706-2) GRAN MAT x10^3(ANC) 4.76 10*3/uL 1.99-6.95 (test code = 1547892883) IMM GRAN x10^3 (test 0.03 10*3/uL 0.00-0.06 code = 5019626464) LYMPH x10^3 (test code 1.76 10*3/uL 1.09-3.23 = 731-0) MONO x10^3 (test code 0.73 10*3/uL 0.36-1.02 = 742-7) EOS x10^3 (test code = 0.29 10*3/uL 0.06-0.53 711-2) BASO x10^3 (test code 0.03 10*3/uL 0.01-0.09 = 704-7) Lab Interpretation Abnormal (test code = 45436-3) [facility]. METABOLIC PANEL (73141)2022-01-05 04:36:59 Test Item Value Reference Range Interpretation Comments NA (test code = 138 mmol/L 135-145 7238021042) K (test code = 5.4 mmol/L 3.5-5.0 H 3810398524) CL (test code = 98 mmol/L 98-108 5184210791) CO2 TOTAL (test code = 17 mmol/L 23-31 L 5655538930) AGAP (test code = 2-16 H 9904206749) BUN (test code = 19 mg/dL 7-23 8982168624) GLUCOSE (test code = 469 mg/dL 70-110 HH 0968551879) CREATININE (test code = 0.74 mg/dL 0.60-1.25 8765164102) TOTAL BILI (test code = 1.0 mg/dL 0.1-1.4 5270504359) CALCIUM (test code = 10.1 mg/dL 8.6-10.6 3613506832) T PROTEIN (test code = 8.2 g/dL 6.3-8.2 8718904346) ALBUMIN (test code = 4.6 g/dL 3.5-5.0 1628580584) ALK PHOS (test code = 208 U/L 34-122 H 9102028978) ALTv (test code = 51 U/L 5-50 H 2-6) AST(SGOT) (test code = 18 U/L 13-40 8032925426) eGFR (test code = mL/min/1.73m2 9343202774) ARPITA (test code = ARPITA) Association of [...] tests). Lab Interpretation Abnormal (test code = 38246-3) [facility] Test Item Value Reference Range Interpretation Comments LIPASE (test code = 2990047052) 137 U/L 0-220 Lab Interpretation (test code = Normal 36839-2) [facility] WITH [id number] 04:07:59 Test Item Value Reference Range Interpretation [...] RDW-SD (test code = 42.6 fL 38.5-51.6 20966-9) RDW-CV (test code = 13.6 % 12.1-15.4 788-0) PLT (test code = See_Comment H [Automated 777-3) message] The sy stem which generated this result transmitted reference range : 150 - 328 10*3/ ?L. The reference r boubacar was not used to interpret this result as normal/abnormal . MPV (test code = 10.7 fL 9.8-13.0 74022-3) NRBC/100 WBC (test See_Comment [Automat ed code = 0651069983) message] The system which generated this result transmitted reference range : 0.0 - 10.0 /100 WBCs. The refer ence range was not u sed to interpret th is result as normal/abnormal . NRBC x10^3 (test code <0.01 See_Comment [Auto mated = 1157565300) message] The s ystem which generated this result transmitted reference range : 10*3/?L. The reference range was not used to interpret this result as normal/abnormal . GRAN MAT (NEUT) % 74.2 % (test code = 770-8) IMM GRAN % (test code 0.50 % = 5153796260) LYMPH % (test code = 14.8 % 736-9) MONO % (test code = 8.3 % 5905-5) EOS % (test code = 1.9 % 713-8) BASO % (test code = 0.3 % 706-2) GRAN MAT x10^3(ANC) 8.01 10*3/uL 1.99-6.95 H (test code = 0303208774) IMM GRAN x10^3 (test 0.05 10*3/uL 0.00-0.06 code = 8320950026) LYMPH x10^3 (test code 1.59 10*3/uL 1.09-3.23 = 731-0) MONO x10^3 (test code 0.89 10*3/uL 0.36-1.02 = 742-7) EOS x10^3 (test code = 0.20 10*3/uL 0.06-0.53 711-2) BASO x10^3 (test code 0.03 10*3/uL 0.01-0.09 = 704-7) Lab Interpretation Abnormal (test code = 14213-1) [facility] GLUCOSE (AUTOMATED)2021-12-22 17:25:00 Test Item Value Reference Range Interpretation Comments POCT GLU (test code = 6585477952) 249 mg/dL 70-110 H Lab Interpretation (test code = Abnormal 25762-9) [facility] GLUCOSE (AUTOMATED)2021-12-22 12:54:01 Test Item Value Reference Range Interpretation Comments POCT GLU (test code = 5378809526) 188 mg/dL 70-110 H Lab Interpretation (test code = Abnormal 17719-0) [facility] METABOLIC PANEL (NA, K, CL, CO2, GLUCOSE, BUN, CREATININE, CA)2021-12-22 11:48:23 Test Item Value Reference Range Interpretation Comments NA (test code = 137 mmol/L 135-145 5509341975) K (test code = 4.3 mmol/L 3.5-5.0 1993445838) CL (test code = 105 mmol/L 98-108 8726957029) CO2 TOTAL (test code = 23 mmol/L 23-31 4272302756) AGAP (test code = 2-16 7505770035) BUN (test code = 19 mg/dL 7-23 0451182151) GLUCOSE (test code = 243 mg/dL 70-110 H 4405263066) CREATININE (test code = 0.50 mg/dL 0.60-1.25 L 3820585945) CALCIUM (test code = 8.9 mg/dL 8.6-10.6 3987316005) eGFR (test code = mL/min/1.73m2 9219139978) ARPITA (test code = ARPITA) Association of [...] tests). Lab Interpretation Abnormal (test code = 01916-3) [facility] Test Item Value Reference Range Interpretation Comments MAGNESIUM (test code = 4876723492) 2.1 mg/dL 1.7-2.4 Lab Interpretation (test code = Normal 42156-4) [facility] WITH [id number] 11:09:44 Test Item Value Reference Range Interpretation Comments WBC (test code = See_Comment [Automated message] 6690-2) The system [employer] generated this result transmitted ref erence range: 4.20 - 1 0.70 10*3/?L. The re ference range was not u sed to interpret this result as normal/abnor mal. RBC (test code = See_Comment [Automated message] 789-8) The system [employer] generated this result transmitted ref erence range: [...] RDW-SD (test code 43.6 fL 38.5-51.6 = 88301-8) RDW-CV (test code 13.7 % 12.1-15.4 = 788-0) PLT (test code = See_Comment [Automated message] 777-3) The system [employer] generated this result transmitted ref erence range: 150 - 32 8 10*3/?L. The re ference range was not u sed to interpret this result as normal/abnor mal. MPV (test code = 11.0 fL 9.8-13.0 99824-8) NRBC/100 WBC (test See_Comment [Automat ed message] code = 6938757290) [employer] which generated this result transmitted ref erence range: 0.0 - 10 .0 /100 WBCs. The refer ence range was not u sed to interpret this result as normal/abnor mal. NRBC x10^3 (test <0.01 See_Comment [Automated message] code = 0813401524) The syste m which generated this result transmitted ref erence range: 10*3/?L. The reference range was not used to interpr et this result as normal/abnormal . GRAN MAT (NEUT) % 57.9 % (test code = 770-8) IMM GRAN % (test 0.60 % code = 0621100301) LYMPH % (test code 30.7 % = 736-9) MONO % (test code 8.5 % = 5905-5) EOS % (test code = 2.0 % 713-8) BASO % (test code 0.3 % = 706-2) GRAN MAT 5.14 10*3/uL 1.99-6.95 x10^3(ANC) (test code = 2062881776) IMM GRAN x10^3 0.05 10*3/uL 0.00-0.06 (test code = 7064150314) LYMPH x10^3 (test 2.73 10*3/uL 1.09-3.23 code = 731-0) MONO x10^3 (test 0.76 10*3/uL 0.36-1.02 code = 742-7) EOS x10^3 (test 0.18 10*3/uL 0.06-0.53 code = 711-2) BASO x10^3 (test 0.03 10*3/uL 0.01-0.09 code = 704-7) [facility] GLUCOSE (AUTOMATED)2021-12-22 10:34:14 Test Item Value Reference Range Interpretation Comments POCT GLU (test code = 8072331175) 230 mg/dL 70-110 H Lab Interpretation (test code = Abnormal 69161-8) [facility] GLUCOSE (AUTOMATED)2021-12-22 05:56:50 Test Item Value Reference Range Interpretation Comments POCT GLU (test code = 0442348412) 314 mg/dL 70-110 H Lab Interpretation (test code = Abnormal 06554-5) [facility] GLUCOSE (AUTOMATED)2021-12-22 04:40:22 Test Item Value Reference Range Interpretation Comments POCT GLU (test code = 8083292127) 324 mg/dL 70-110 H Lab Interpretation (test code = Abnormal 02416-3) [facility] GLUCOSE (AUTOMATED)2021-12-22 02:37:33 Test Item Value Reference Range Interpretation Comments POCT GLU (test code = 4529564227) 296 mg/dL 70-110 H Lab Interpretation (test code = Abnormal 25800-8) [facility] GLUCOSE (AUTOMATED)2021-12-22 01:05:02 Test Item Value Reference Range Interpretation Comments POCT GLU (test code = 6302934131) 319 mg/dL 70-110 H Lab Interpretation (test code = Abnormal 51963-3) [facility] GLUCOSE (AUTOMATED)2021-12-21 21:59:09 Test Item Value Reference Range Interpretation Comments POCT GLU (test code = 9720102592) 257 mg/dL 70-110 H Lab Interpretation (test code = Abnormal 09025-6) [facility] GLUCOSE (AUTOMATED)2021-12-21 17:21:41 Test Item Value Reference Range Interpretation Comments POCT GLU (test code = 6071367994) 214 mg/dL 70-110 H Lab Interpretation (test code = Abnormal 69070-6) [facility] GLUCOSE (AUTOMATED)2021-12-21 13:04:04 Test Item Value Reference Range Interpretation Comments POCT GLU (test code = 2036064221) 234 mg/dL 70-110 H Lab Interpretation (test code = Abnormal 43732-7) [facility] METABOLIC PANEL (NA, K, CL, CO2, GLUCOSE, BUN, CREATININE, CA)2021-12-21 12:23:33 Test Item Value Reference Range Interpretation Comments NA (test code = 136 mmol/L 135-145 9669370118) K (test code = 4.1 mmol/L 3.5-5.0 6890728999) CL (test code = 109 mmol/L 98-108 H 8697384464) CO2 TOTAL (test code = 20 mmol/L 23-31 L 6732261232) AGAP (test code = 2-16 9497038495) BUN (test code = 16 mg/dL 7-23 4939301263) GLUCOSE (test code = 281 mg/dL 70-110 H 1962034429) CREATININE (test code = 0.50 mg/dL 0.60-1.25 L 2299599562) CALCIUM (test code = 8.3 mg/dL 8.6-10.6 L 1689895648) eGFR (test code = mL/min/1.73m2 9870272090) ARPITA (test code = ARPITA) Association of [...] tests). Lab Interpretation Abnormal (test code = 95457-7) [facility]:23[facility]33 Test Item Value Reference Range Interpretation Comments MAGNESIUM (test code = 4859982828) 1.6 mg/dL 1.7-2.4 L Lab Interpretation (test code = Abnormal 58098-4) [facility] 12:23:13 Test Item Value Reference Range Interpretation Comments PHOSPHORUS (test code = 6042961815) 3.2 mg/dL 2.5-5.0 Lab Interpretation (test code = Normal 47413-5) [facility]A1C[facility]2021-12-21 10:04:37 Test Item Value Reference Range Interpretation Comments HGB A1C (test code = 9.6 % 4.0-5.7 H 4548-4) ARPITA (test code = ARPITA) Reference RangesNormal: <5.7%Prediabetes: 5.7 - 6.4%Diabetes: > 6.5% Lab Interpretation (test Abnormal code = 79949-8) [facility] [id number] 09:29:41 Test Item Value Reference Range Interpretation Comments WBC (test code = See_Comment [Automated message] 1090-2) The system [employer] generated this result transmitted ref erence range: 4.20 - 1 0.70 10*3/?L. The re ference range was not u sed to interpret this result as normal/abnor mal. RBC (test code = See_Comment [Automated message] 389-8) The system [employer] generated this result transmitted ref erence range: [...] RDW-SD (test code 42.5 fL 38.5-51.6 = 51955-7) RDW-CV (test code 13.5 % 12.1-15.4 = 788-0) PLT (test code = See_Comment [Automated message] 077-3) The system [employer] generated this result transmitted ref erence range: 150 - 32 8 10*3/?L. The re ference range was not u sed to interpret this result as normal/abnor mal. MPV (test code = 10.8 fL 9.8-13.0 83223-0) NRBC/100 WBC (test See_Comment [Automat ed message] code = 9434420267) The syste m which generated this result transmitted ref erence range: 0.0 - 10 .0 /100 WBCs. The refer ence range was not u sed to interpret this result as normal/abnor mal. NRBC x10^3 (test <0.01 See_Comment [Automated message] code = 4430980988) The syste m which generated this result transmitted ref erence range: 10*3/?L. The reference range was not used to interpr et this result as normal/abnormal . GRAN MAT (NEUT) % 58.6 % (test code = 770-8) IMM GRAN % (test 0.50 % code = 3576321900) LYMPH % (test code 31.3 % = 736-9) MONO % (test code 6.9 % = 5905-5) EOS % (test code = 2.4 % 713-8) BASO % (test code 0.3 % = 706-2) GRAN MAT 5.39 10*3/uL 1.99-6.95 x10^3(ANC) (test code = 7539300281) IMM GRAN x10^3 0.05 10*3/uL 0.00-0.06 (test code = 4092544530) LYMPH x10^3 (test 2.89 10*3/uL 1.09-3.23 code = 731-0) MONO x10^3 (test 0.64 10*3/uL 0.36-1.02 code = 742-7) EOS x10^3 (test 0.22 10*3/uL 0.06-0.53 code = 711-2) BASO x10^3 (test 0.03 10*3/uL 0.01-0.09 code = 704-7) [facility] GLUCOSE (AUTOMATED)2021-12-21 09:06:33 Test Item Value Reference Range Interpretation Comments POCT GLU (test code = 3372203390) 206 mg/dL 70-110 H Lab Interpretation (test code = Abnormal 39025-7) [facility] GLUCOSE (AUTOMATED)2021-12-21 04:38:41 Test Item Value Reference Range Interpretation Comments POCT GLU (test code = 1593014363) 272 mg/dL 70-110 H Lab Interpretation (test code = Abnormal 39008-5) [facility] GLUCOSE (AUTOMATED)2021-12-21 01:14:47 Test Item Value Reference Range Interpretation Comments POCT GLU (test code = 6991787812) 256 mg/dL 70-110 H Lab Interpretation (test code = Abnormal 28489-7) [facility] GLUCOSE (AUTOMATED)2021-12-20 21:11:19 Test Item Value Reference Range Interpretation Comments POCT GLU (test code = 8268561843) 254 mg/dL 70-110 H Lab Interpretation (test code = Abnormal 43296-9) [facility] GLUCOSE (AUTOMATED)2021-12-20 17:10:33 Test Item Value Reference Range Interpretation Comments POCT GLU (test code = 4915542353) 350 mg/dL 70-110 H Lab Interpretation (test code = Abnormal 46388-0) [facility] GLUCOSE (AUTOMATED)2021-12-20 12:50:18 Test Item Value Reference Range Interpretation Comments POCT GLU (test code = 2402367498) 269 mg/dL 70-110 H Lab Interpretation (test code = Abnormal 99813-1) [facility] Metabolic Panel (NA, K, CL, CO2, GLUCOSE, BUN, CREATININE, CA)2021-12-20 10:18:27 Test Item Value Reference Range Interpretation Comments NA (test code = 137 mmol/L 135-145 2486328339) K (test code = 4.0 mmol/L 3.5-5.0 2623705674) CL (test code = 108 mmol/L 98-108 2580268893) CO2 TOTAL (test code = 23 mmol/L 23-31 9040515654) AGAP (test code = 2-16 9050272506) BUN (test code = 16 mg/dL 7-23 8384658410) GLUCOSE (test code = 386 mg/dL 70-110 H 4487625718) CREATININE (test code = 0.70 mg/dL 0.60-1.25 4244337568) CALCIUM (test code = 8.6 mg/dL 8.6-10.6 7336409621) eGFR (test code = mL/min/1.73m2 4310569359) ARPITA (test code = ARPITA) Association of [...] tests). Lab Interpretation Abnormal (test code = 66185-2) [facility] with [id number] 10:03:31 Test Item Value Reference Range Interpretation Comments WBC (test code = See_Comment [Automated message] 6690-2) The system [employer] generated this result transmitted ref erence range: 4.20 - 1 0.70 10*3/?L. The re ference range was not u sed to interpret this result as normal/abnor mal. RBC (test code = See_Comment [Automated message] 789-8) The system [employer] generated this result transmitted ref erence range: [...] RDW-SD (test code 42.5 fL 38.5-51.6 = 28070-1) RDW-CV (test code 13.5 % 12.1-15.4 = 788-0) PLT (test code = See_Comment [Automated message] 777-3) The system [employer] generated this result transmitted ref erence range: 150 - 32 8 10*3/?L. The re ference range was not u sed to interpret this result as normal/abnor mal. MPV (test code = 11.2 fL 9.8-13.0 50283-0) NRBC/100 WBC (test See_Comment [Automat ed message] code = 0777834246) The syste m which generated this result transmitted ref erence range: 0.0 - 10 .0 /100 WBCs. The refer ence range was not u sed to interpret this result as normal/abnor mal. NRBC x10^3 (test <0.01 See_Comment [Automated message] code = 7835994113) The syste m which generated this result transmitted ref erence range: 10*3/?L. The reference range was not used to interpr et this result as normal/abnormal . GRAN MAT (NEUT) % 63.5 % (test code = 770-8) IMM GRAN % (test 0.30 % code = 9503834634) LYMPH % (test code 24.8 % = 736-9) MONO % (test code 8.7 % = 5905-5) EOS % (test code = 2.5 % 713-8) BASO % (test code 0.2 % = 706-2) GRAN MAT 6.05 10*3/uL 1.99-6.95 x10^3(ANC) (test code = 7477832517) IMM GRAN x10^3 0.03 10*3/uL 0.00-0.06 (test code = 8221311986) LYMPH x10^3 (test 2.37 10*3/uL 1.09-3.23 code = 731-0) MONO x10^3 (test 0.83 10*3/uL 0.36-1.02 code = 742-7) EOS x10^3 (test 0.24 10*3/uL 0.06-0.53 code = 711-2) BASO x10^3 (test <0.03 0.01-0.09 code = 704-7) [facility] GLUCOSE (AUTOMATED)2021-12-20 09:00:15 Test Item Value Reference Range Interpretation Comments POCT GLU (test code = 7092801118) 402 mg/dL 70-110 H Lab Interpretation (test code = Abnormal 19131-2) [facility] GLUCOSE (AUTOMATED)2021-12-20 04:54:36 Test Item Value Reference Range Interpretation Comments POCT GLU (test code = 1721945938) 368 mg/dL 70-110 H Lab Interpretation (test code = Abnormal 82343-7) [facility] GLUCOSE (AUTOMATED)2021-12-20 03:13:40 Test Item Value Reference Range Interpretation Comments POCT GLU (test code = 9442303246) 438 mg/dL 70-110 H Lab Interpretation (test code = Abnormal 06882-4) [facility]. METABOLIC PANEL (18375)2021-12-20 01:05:39 Test Item Value Reference Range Interpretation Comments NA (test code = 133 mmol/L 135-145 L 0981963397) K (test code = 4.7 mmol/L 3.5-5.0 2206079157) CL (test code = 99 mmol/L 98-108 6428449701) CO2 TOTAL (test code = 21 mmol/L 23-31 L 3460577875) AGAP (test code = 2-16 1400744399) BUN (test code = 18 mg/dL 7-23 5595095148) GLUCOSE (test code = 660 mg/dL 70-110 HH 9965982820) CREATININE (test code = 0.64 mg/dL 0.60-1.25 9812687666) TOTAL BILI (test code = 1.0 mg/dL 0.1-1.2 1413975699) CALCIUM (test code = 9.7 mg/dL 8.6-10.6 5093306594) T PROTEIN (test code = 7.9 g/dL 6.3-8.2 2145825174) ALBUMIN (test code = 4.4 g/dL 3.5-5.0 5157677268) ALK PHOS (test code = 143 U/L 34-122 H 4970197283) ALTv (test code = 47 U/L 5-50 2-6) AST(SGOT) (test code = 30 U/L 13-40 1085378961) eGFR (test code = mL/min/1.73m2 3637960992) ARPITA (test code = ARPITA) Association of [...] tests). Lab Interpretation Abnormal (test code = 87438-3) [facility] Test Item Value Reference Range Interpretation Comments LIPASE (test code = 1092857438) 255 U/L 0-220 H Lab Interpretation (test code = Abnormal 43083-3) [facility] [id number] 00:38:14 Test Item Value Reference Range Interpretation [...] RDW-SD (test code = 43.8 fL 38.5-51.6 31914-1) RDW-CV (test code = 13.6 % 12.1-15.4 788-0) PLT (test code = See_Comment [Automated 777-3) message] The sy stem which generated this result transmitted reference range : 150 - 328 10*3/ ?L. The reference r boubacar was not used to interpret this result as normal/abnormal . MPV (test code = 11.4 fL 9.8-13.0 37451-2) NRBC/100 WBC (test See_Comment [Automat ed code = 2958308234) message] The system which generated this result transmitted reference range : 0.0 - 10.0 /100 WBCs. The refer ence range was not u sed to interpret th is result as normal/abnormal . NRBC x10^3 (test code <0.01 See_Comment [Auto mated = 5460119885) message] The s ystem which generated this result transmitted reference range : 10*3/?L. The reference range was not used to interpret this result as normal/abnormal . GRAN MAT (NEUT) % 76.0 % (test code = 770-8) IMM GRAN % (test code 0.50 % = 1265253603) LYMPH % (test code = 15.2 % 736-9) MONO % (test code = 6.5 % 5905-5) EOS % (test code = 1.6 % 713-8) BASO % (test code = 0.2 % 706-2) GRAN MAT x10^3(ANC) 8.55 10*3/uL 1.99-6.95 H (test code = 9964191404) IMM GRAN x10^3 (test 0.06 10*3/uL 0.00-0.06 code = 1663366302) LYMPH x10^3 (test code 1.71 10*3/uL 1.09-3.23 = 731-0) MONO x10^3 (test code 0.73 10*3/uL 0.36-1.02 = 742-7) EOS x10^3 (test code = 0.18 10*3/uL 0.06-0.53 711-2) BASO x10^3 (test code <0.03 0.01-0.09 = 704-7) Lab Interpretation Abnormal (test code = 63178-2) [facility]:32:39 Test Item Value Reference Range Interpretation Comments MAGNESIUM (test code = 5503252214) 1.7 mg/dL 1.7-2.4 Lab Interpretation (test code = Normal 36676-3) [facility] (NA, K, CL, CO2, GLUCOSE, BUN, CREATININE, CA)2021-12-18 18:32:38 Test Item Value Reference Range Interpretation Comments NA (test code = 137 mmol/L 135-145 7897045376) K (test code = 4.3 mmol/L 3.5-5.0 1915207787) CL (test code = 105 mmol/L 98-108 0186166431) CO2 TOTAL (test code = 23 mmol/L 23-31 7553818688) AGAP (test code = 2-16 5513823465) BUN (test code = 17 mg/dL 7-23 9301566364) GLUCOSE (test code = 317 mg/dL 70-110 H 7112930838) CREATININE (test code = 0.57 mg/dL 0.60-1.25 L 9907930912) CALCIUM (test code = 9.3 mg/dL 8.6-10.6 8343133892) eGFR (test code = mL/min/1.73m2 9389206651) ARPITA (test code = ARPITA) Association of [...] tests). Lab Interpretation Abnormal (test code = 83496-5) [facility] WITH [id number] 18:10:18 Test Item Value Reference Range Interpretation Comments WBC (test code = See_Comment [Automated message] 6690-2) The system [employer] generated this result transmitted ref erence range: 4.20 - 1 0.70 10*3/?L. The re ference range was not u sed to interpret this result as normal/abnor mal. RBC (test code = See_Comment [Automated message] 789-8) The system [employer] generated this result transmitted ref erence range: [...] RDW-SD (test code 44.4 fL 38.5-51.6 = 48909-8) RDW-CV (test code 13.8 % 12.1-15.4 = 788-0) PLT (test code = See_Comment [Automated message] 957-3) The system [employer] generated this result transmitted ref erence range: 150 - 32 8 10*3/?L. The re ference range was not u sed to interpret this result as normal/abnor mal. MPV (test code = 10.9 fL 9.8-13.0 27876-5) NRBC/100 WBC (test See_Comment [Automat ed message] code = 4632597697) The syste [employer] which generated this result transmitted ref erence range: 0.0 - 10 .0 /100 WBCs. The refer ence range was not u sed to interpret this result as normal/abnor mal. NRBC x10^3 (test <0.01 See_Comment [Automated message] code = 4859398300) The syste m which generated this result transmitted ref erence range: 10*3/?L. The reference range was not used to interpr et this result as normal/abnormal . GRAN MAT (NEUT) % 53.4 % (test code = 770-8) IMM GRAN % (test 0.30 % code = 3304336472) LYMPH % (test code 35.3 % = 736-9) MONO % (test code 7.4 % = 5905-5) EOS % (test code = 3.3 % 713-8) BASO % (test code 0.3 % = 706-2) GRAN MAT 3.59 10*3/uL 1.99-6.95 x10^3(ANC) (test code = 4488136410) IMM GRAN x10^3 <0.03 0.00-0.06 (test code = 7940914499) LYMPH x10^3 (test 2.37 10*3/uL 1.09-3.23 code = 731-0) MONO x10^3 (test 0.50 10*3/uL 0.36-1.02 code = 742-7) EOS x10^3 (test 0.22 10*3/uL 0.06-0.53 code = 711-2) BASO x10^3 (test <0.03 0.01-0.09 code = 704-7) [facility] GLUCOSE (AUTOMATED)2021-12-18 16:50:23 Test Item Value Reference Range Interpretation Comments POCT GLU (test code = 8282058018) 304 mg/dL 70-110 H Lab Interpretation (test code = Abnormal 31242-2) [facility] GLUCOSE (AUTOMATED)2021-12-18 12:58:13 Test Item Value Reference Range Interpretation Comments POCT GLU (test code = 8184129457) 364 mg/dL 70-110 H Lab Interpretation (test code = Abnormal 31537-9) [facility] GLUCOSE (AUTOMATED)2021-12-18 09:42:05 Test Item Value Reference Range Interpretation Comments POCT GLU (test code = 8818452511) 369 mg/dL 70-110 H Lab Interpretation (test code = Abnormal 75873-3) [facility] GLUCOSE (AUTOMATED)2021-12-18 05:09:33 Test Item Value Reference Range Interpretation Comments POCT GLU (test code = 4381941607) 332 mg/dL 70-110 H Lab Interpretation (test code = Abnormal 38449-2) [facility] GLUCOSE (AUTOMATED)2021-12-18 01:27:31 Test Item Value Reference Range Interpretation Comments POCT GLU (test code = 5225087795) 349 mg/dL 70-110 H Lab Interpretation (test code = Abnormal 93832-5) [facility] GLUCOSE (AUTOMATED)2021-12-17 21:42:26 Test Item Value Reference Range Interpretation Comments POCT GLU (test code = 9213982189) 372 mg/dL 70-110 H Lab Interpretation (test code = Abnormal 32381-0) [facility] GLUCOSE (AUTOMATED)2021-12-17 17:17:16 Test Item Value Reference Range Interpretation Comments POCT GLU (test code = 4877257679) 329 mg/dL 70-110 H Lab Interpretation (test code = Abnormal 56956-3) [facility] GLUCOSE (AUTOMATED)2021-12-17 14:09:34 Test Item Value Reference Range Interpretation Comments POCT GLU (test code = 0976338478) 350 mg/dL 70-110 H Lab Interpretation (test code = Abnormal 76322-5) [facility] GLUCOSE (AUTOMATED)2021-12-17 09:59:20 Test Item Value Reference Range Interpretation Comments POCT GLU (test code = 4603014770) 342 mg/dL 70-110 H Lab Interpretation (test code = Abnormal 09793-3) [facility] GLUCOSE (AUTOMATED)2021-12-17 01:46:05 Test Item Value Reference Range Interpretation Comments POCT GLU (test code = 2430471515) 318 mg/dL 70-110 H Lab Interpretation (test code = Abnormal 97673-1) [facility] GLUCOSE (AUTOMATED)2021-12-16 21:25:33 Test Item Value Reference Range Interpretation Comments POCT GLU (test code = 5243323218) 212 mg/dL 70-110 H Lab Interpretation (test code = Abnormal 37338-8) [facility] GLUCOSE (AUTOMATED)2021-12-16 16:27:52 Test Item Value Reference Range Interpretation Comments POCT GLU (test code = 4510747842) 226 mg/dL 70-110 H Lab Interpretation (test code = Abnormal 28168-4) [facility] GLUCOSE (AUTOMATED)2021-12-16 15:37:46 Test Item Value Reference Range Interpretation Comments POCT GLU (test code = 9113181402) 204 mg/dL 70-110 H Lab Interpretation (test code = Abnormal 33821-3) [facility] 14:39:25 Test Item Value Reference Range Interpretation Comments POCT GLU (test code = 0958567989) 185 mg/dL 70-110 H Lab Interpretation (test code = Abnormal 72063-8) [facility] Metabolic Panel (Na, K, Cl, CO2, Glucose, BUN, Creatinine, Ca)2021-12-16 14:07:03 Test Item Value Reference Range Interpretation Comments NA (test code = 137 mmol/L 135-145 2336177368) K (test code = 4.6 mmol/L 3.5-5.0 6187246127) CL (test code = 111 mmol/L 98-108 H 3266312182) CO2 TOTAL (test code = 22 mmol/L 23-31 L 1604255270) AGAP (test code = 2-16 4059622257) BUN (test code = 12 mg/dL 7-23 5705505793) GLUCOSE (test code = 181 mg/dL 70-110 H 7612210667) CREATININE (test code = 0.70 mg/dL 0.60-1.25 1821341712) CALCIUM (test code = 8.3 mg/dL 8.6-10.6 L 8222859928) eGFR (test code = mL/min/1.73m2 3956905600) ARPITA (test code = ARPITA) Association of [...] tests). Lab Interpretation Abnormal (test code = 25647-6) [facility] GLUCOSE (AUTOMATED)2021-12-16 13:45:48 Test Item Value Reference Range Interpretation Comments POCT GLU (test code = 5648881344) 170 mg/dL 70-110 H Lab Interpretation (test code = Abnormal 21587-2) [facility] GLUCOSE (AUTOMATED)2021-12-16 12:28:12 Test Item Value Reference Range Interpretation Comments POCT GLU (test code = 4888361372) 109 mg/dL 70-110 Lab Interpretation (test code = Normal 48831-8) [facility] GLUCOSE (AUTOMATED)2021-12-16 11:25:37 Test Item Value Reference Range Interpretation Comments POCT GLU (test code = 8219872055) 134 mg/dL 70-110 H Lab Interpretation (test code = Abnormal 14326-6) [facility] Metabolic Panel (Na, K, Cl, CO2, Glucose, BUN, Creatinine, Ca)2021-12-16 10:50:17 Test Item Value Reference Range Interpretation Comments NA (test code = 138 mmol/L 135-145 0544260623) K (test code = 5.1 mmol/L 3.5-5.0 H Slight 1088810156) hemolysis CL (test code = 110 mmol/L 98-108 H 4875905912) CO2 TOTAL (test code 23 mmol/L 23-31 = 2713779182) AGAP (test code = 2-16 7751731485) BUN (test code = 13 mg/dL 7-23 Slight 3087400736) hemolysis GLUCOSE (test code = 131 mg/dL 70-110 H 6503768635) CREATININE (test code 0.73 mg/dL 0.60-1.25 = 7195596889) CALCIUM (test code = 8.9 mg/dL 8.6-10.6 7607869702) eGFR (test code = mL/min/1.73m2 2610731209) ARPITA (test code = ARPITA) Association of [...] tests). Lab Interpretation Abnormal (test code = 78636-0) [facility] GLUCOSE (AUTOMATED)2021-12-16 10:35:11 Test Item Value Reference Range Interpretation Comments POCT GLU (test code = 8138075587) 125 mg/dL 70-110 H Lab Interpretation (test code = Abnormal 51574-2) [facility] GLUCOSE (AUTOMATED)2021-12-16 09:31:05 Test Item Value Reference Range Interpretation Comments POCT GLU (test code = 5539845288) 137 mg/dL 70-110 H Lab Interpretation (test code = Abnormal 63635-7) [facility] GLUCOSE (AUTOMATED)2021-12-16 08:28:48 Test Item Value Reference Range Interpretation Comments POCT GLU (test code = 0648926210) 168 mg/dL 70-110 H Lab Interpretation (test code = Abnormal 71330-3) [facility] GLUCOSE (AUTOMATED)2021-12-16 07:26:17 Test Item Value Reference Range Interpretation Comments POCT GLU (test code = 0607483319) 165 mg/dL 70-110 H Lab Interpretation (test code = Abnormal 97017-2) [facility] Metabolic Panel (Na, K, Cl, CO2, Glucose, BUN, Creatinine, Ca)2021-12-16 07:18:59 Test Item Value Reference Range Interpretation Comments NA (test code = 136 mmol/L 135-145 9817627368) K (test code = 5.1 mmol/L 3.5-5.0 H 1229696600) CL (test code = 108 mmol/L 98-108 9140862009) CO2 TOTAL (test code = 24 mmol/L 23-31 0715357590) AGAP (test code = 2-16 1861003609) BUN (test code = 14 mg/dL 7-23 8379740624) GLUCOSE (test code = 202 mg/dL 70-110 H 6348014909) CREATININE (test code = 0.79 mg/dL 0.60-1.25 1186686352) CALCIUM (test code = 8.9 mg/dL 8.6-10.6 4842944412) eGFR (test code = mL/min/1.73m2 4772427478) ARPITA (test code = ARPITA) Association of [...] tests). Lab Interpretation Abnormal (test code = 81638-4) [facility] [id number] 06:57:08 Test Item Value Reference Range Interpretation Comments BOH (test code = <0.1 mmol/L 1683903889) ARPITA (test code = Normal Ranges: ? ? ARPITA) Nonfasting ? Less than 0.1 mmol/L ? ? Overnight Fast ? ? ? Less than 0.4 mmol/L ? ? Fasting (1-2 weeks) ?6-8 mmol/L Test developed and characteristics determined by [facility] Laboratory Services. [facility] GLUCOSE (AUTOMATED)2021-12-16 06:24:07 Test Item Value Reference Range Interpretation Comments POCT GLU (test code = 1181987521) 212 mg/dL 70-110 H Lab Interpretation (test code = Abnormal 41781-9) [facility] GLUCOSE (AUTOMATED)2021-12-16 05:28:19 Test Item Value Reference Range Interpretation Comments POCT GLU (test code = 6801533707) 239 mg/dL 70-110 H Lab Interpretation (test code = Abnormal 47358-2) [facility] GLUCOSE (AUTOMATED)2021-12-16 04:29:31 Test Item Value Reference Range Interpretation Comments POCT GLU (test code = 6372862640) 251 mg/dL 70-110 H Lab Interpretation (test code = Abnormal 63534-4) [facility] (Na, K, Cl, CO2, Glucose, BUN, Creatinine, Ca)2021-12-16 03:49:55 Test Item Value Reference Range Interpretation Comments NA (test code = 141 mmol/L 135-145 7603198558) K (test code = 4.2 mmol/L 3.5-5.0 5574958693) CL (test code = 108 mmol/L 98-108 5363557236) CO2 TOTAL (test code = 26 mmol/L 23-31 3210909571) AGAP (test code = 2-16 1880986682) BUN (test code = 14 mg/dL 7-23 8540370120) GLUCOSE (test code = 164 mg/dL 70-110 H 4079524109) CREATININE (test code = 0.84 mg/dL 0.60-1.25 7645118492) CALCIUM (test code = 9.3 mg/dL 8.6-10.6 3383784674) eGFR (test code = mL/min/1.73m2 0101779927) ARPITA (test code = ARPITA) Association of [...] tests). Lab Interpretation Abnormal (test code = 68825-5) [facility] GLUCOSE (AUTOMATED)2021-12-16 03:20:15 Test Item Value Reference Range Interpretation Comments POCT GLU (test code = 3891651306) 174 mg/dL 70-110 H Lab Interpretation (test code = Abnormal 37712-0) [facility] GLUCOSE (AUTOMATED)2021-12-16 02:25:54 Test Item Value Reference Range Interpretation Comments POCT GLU (test code = 1505893856) 158 mg/dL 70-110 H Lab Interpretation (test code = Abnormal 55019-6) [facility] GLUCOSE (AUTOMATED)2021-12-16 01:37:09 Test Item Value Reference Range Interpretation Comments POCT GLU (test code = 7645685781) 219 mg/dL 70-110 H Lab Interpretation (test code = Abnormal 89819-2) [facility] GLUCOSE (AUTOMATED)2021-12-16 00:19:48 Test Item Value Reference Range Interpretation Comments POCT GLU (test code = 0586208073) 345 mg/dL 70-110 H Lab Interpretation (test code = Abnormal 83216-2) [facility] GLUCOSE (AUTOMATED)2021-12-15 22:59:57 Test Item Value Reference Range Interpretation Comments POCT GLU (test code = 2905240439) 318 mg/dL 70-110 H Lab Interpretation (test code = Abnormal 96133-1) [facility] (Na, K, Cl, CO2, Glucose, BUN, Creatinine, Ca)2021-12-15 22:41:00 Test Item Value Reference Range Interpretation Comments NA (test code = 140 mmol/L 135-145 8702650716) K (test code = 3.1 mmol/L 3.5-5.0 L 4404809708) CL (test code = 116 mmol/L 98-108 H 2631954426) CO2 TOTAL (test code = 21 mmol/L 23-31 L 9118226304) AGAP (test code = 2-16 8457904735) BUN (test code = 12 mg/dL 7-23 9516736641) GLUCOSE (test code = 281 mg/dL 70-110 H 8954350197) CREATININE (test code = 0.62 mg/dL 0.60-1.25 0077113735) CALCIUM (test code = 7.2 mg/dL 8.6-10.6 L 5231164029) eGFR (test code = mL/min/1.73m2 8772504299) ARPITA (test code = ARPITA) Association of [...] tests). Lab Interpretation Abnormal (test code = 34734-0) [facility] GLUCOSE (AUTOMATED)2021-12-15 21:53:29 Test Item Value Reference Range Interpretation Comments POCT GLU (test code = 1763294040) 368 mg/dL 70-110 H Lab Interpretation (test code = Abnormal 20757-7) [facility] GLUCOSE (AUTOMATED)2021-12-15 20:41:51 Test Item Value Reference Range Interpretation Comments POCT GLU (test code = 4060276971) 458 mg/dL 70-110 HH Lab Interpretation (test code = Abnormal 68196-5) [facility]-15 19:00:13 Test Item Value Reference Range Interpretation Comments POCT GLU (test code = 2302633190) 369 mg/dL 70-110 H Lab Interpretation (test code = Abnormal 82235-4) [facility] Metabolic Panel (Na, K, Cl, CO2, Glucose, BUN, Creatinine, Ca)2021-12-15 18:32:29 Test Item Value Reference Range Interpretation Comments NA (test code = 145 mmol/L 135-145 8003454584) K (test code = 4.8 mmol/L 3.5-5.0 Slight 9242857990) hemolysis CL (test code = 112 mmol/L 98-108 H 8400372823) CO2 TOTAL (test code 26 mmol/L 23-31 = 8477629892) AGAP (test code = 2-16 9197960273) BUN (test code = 16 mg/dL 7-23 Slight 3364617073) hemolysis GLUCOSE (test code = 282 mg/dL 70-110 H 6630934508) CREATININE (test code 0.83 mg/dL 0.60-1.25 = 1720145202) CALCIUM (test code = 10.0 mg/dL 8.6-10.6 2872588553) eGFR (test code = mL/min/1.73m2 4178447364) ARPITA (test code = ARPITA) Association of [...] tests). Lab Interpretation Abnormal (test code = 71228-1) [facility] GLUCOSE (AUTOMATED)2021-12-15 17:45:09 Test Item Value Reference Range Interpretation Comments POCT GLU (test code = 3412677237) 284 mg/dL 70-110 H Lab Interpretation (test code = Abnormal 54608-8) [facility]ahy[facility]xy-Cmfrccxd1231-31-89 16:41:13 Test Item Value Reference Range Interpretation Comments BOH (test code = 0.9 mmol/L 0858150357) ARPITA (test code = Normal Ranges: ? ? ARPITA) Nonfasting ? Less than 0.1 mmol/L ? ? Overnight Fast ? ? ? Less than 0.4 mmol/L ? ? Fasting (1-2 weeks) ?6-8 mmol/L Test developed and characteristics determined by [facility] Laboratory Services. [facility] GLUCOSE (AUTOMATED)2021-12-15 16:33:41 Test Item Value Reference Range Interpretation Comments POCT GLU (test code = 9602545896) 266 mg/dL 70-110 H Lab Interpretation (test code = Abnormal 84987-4) [facility] GLUCOSE (AUTOMATED)2021-12-15 15:30:41 Test Item Value Reference Range Interpretation Comments POCT GLU (test code = 0895160619) 294 mg/dL 70-110 H Lab Interpretation (test code = Abnormal 50942-6) [facility] GLUCOSE (AUTOMATED)2021-12-15 14:23:40 Test Item Value Reference Range Interpretation Comments POCT GLU (test code = 4826837758) 511 mg/dL 70-110 HH Lab Interpretation (test code = Abnormal 72599-2) [facility] WITHOUT [id number] 13:55:53 Test Item Value Reference Range Interpretation Comments WBC (test code = 6690-2) See_Comment H [A utomated message] The system tagUin generated this result transmit lester reference range : 4.20 - 10.70 10*3/?L. The reference range was not used to interpret this result as normal/abnormal . RBC (test code = 789-8) See_Comment H [Au tomated message] The system tagUin generated this result transmit lester reference range [...] See_Comment H [Au tomated message] The system tagUin generated this result transmit lester reference range : 150 - 328 10*3/?L. The reference range was not used to interpret this result as normal/abnormal . MPV (test code = 11.0 fL 9.8-13.0 44468-2) RDW-CV (test code = 14.2 % 12.1-15.4 788-0) RDW-SD (test code = 44.8 fL 38.5-51.6 45909-7) NRBC x10^3 (test code = <0.01 See_Comment [Au tomated message] 8401299463) The system tagUin generated this result transmit lester reference range : 10*3/?L. The reference range was not used to interpret this result as normal/abnormal . NRBC/100 WBC (test code See_Comment [Au tomated message] = 7258743719) The system [facility] generated this result transmit lester reference range : 0.0 - 10.0 /100 WBC s. The reference r boubacar was not used to interpret this result as normal/abnormal . IPF % (test code = 7879957908) Lab Interpretation (test Abnormal code = 12835-6) [facility] GLUCOSE (AUTOMATED)2021-12-15 13:34:21 Test Item Value Reference Range Interpretation Comments POCT GLU (test code = 2698224118) 538 mg/dL 70-110 HH Lab Interpretation (test code = Abnormal 35997-8) [facility] GLUCOSE (AUTOMATED)2021-12-15 13:30:43 Test Item Value Reference Range Interpretation Comments POCT GLU (test code = 4993061507) >600 70-110 HH Lab Interpretation (test code = Abnormal 85035-2) [facility] GLUCOSE (AUTOMATED)2021-12-15 13:30:43 Test Item Value Reference Range Interpretation Comments POCT GLU (test code = 7187492518) >600 70-110 HH Lab Interpretation (test code = Abnormal 40178-6) [facility] GLUCOSE (AUTOMATED)2021-12-15 13:30:43 Test Item Value Reference Range Interpretation Comments POCT GLU (test code = >600 70-110 HH Notifi ed Provider 7366992037) Lab Interpretation (test Abnormal code = 15652-5) [facility] GLUCOSE (AUTOMATED)2021-12-15 13:30:43 Test Item Value Reference Range Interpretation Comments POCT GLU (test code = 9472020777) >600 70-110 HH Lab Interpretation (test code = Abnormal 26452-1) [facility] GLUCOSE (AUTOMATED)2021-12-15 13:30:38 Test Item Value Reference Range Interpretation Comments POCT GLU (test code = 9564402515) >600 70-110 HH Lab Interpretation (test code = Abnormal 06940-1) [facility] GLUCOSE (AUTOMATED)2021-12-15 13:30:38 Test Item Value Reference Range Interpretation Comments POCT GLU (test code = 4323384129) >600 70-110 HH Lab Interpretation (test code = Abnormal 68941-5) [facility] HospitalOsmolality [id number] 12:37:44 Test Item Value Reference Range Interpretation Comments OSMOLALITY (test code = See_Comment HH [Au tomated message] 2692-2) The system tagUin generated this result transmitted ref erence range: 278 - 30 5 mOsm/kg. The reference range was not used to int erpret this result as normal/abnormal . Lab Interpretation (test Abnormal code = 30416-6) [facility] Metabolic Panel (Na, K, Cl, CO2, Glucose, BUN, Creatinine, Ca)2021-12-15 12:23:35 Test Item Value Reference Range Interpretation Comments NA (test code = 145 mmol/L 135-145 4566544601) K (test code = 4.4 mmol/L 3.5-5.0 9751447696) CL (test code = 109 mmol/L 98-108 H 2242175519) CO2 TOTAL (test code = 21 mmol/L 23-31 L 2210382291) AGAP (test code = 2-16 6325084990) BUN (test code = 15 mg/dL 7-23 6100503851) GLUCOSE (test code = 753 mg/dL 70-110 HH 7955750982) CREATININE (test code = 0.79 mg/dL 0.60-1.25 8143183364) CALCIUM (test code = 10.9 mg/dL 8.6-10.6 H 3818137243) eGFR (test code = mL/min/1.73m2 2737372696) ARPITA (test code = ARPITA) Association of [...] tests). Lab Interpretation Abnormal (test code = 82772-5) [facility] 12:14:56 Test Item Value Reference Range Interpretation Comments POCT GLU (test code = 9708991505) 564 mg/dL 70-110 HH Lab Interpretation (test code = Abnormal 84780-2) [facility] HospitalMagnesium [id number] 12:05:40 Test Item Value Reference Range Interpretation Comments MAGNESIUM (test code = 7099939526) 2.5 mg/dL 1.7-2.4 H Lab Interpretation (test code = Abnormal 13363-6) [facility]20[facility] 12:05:20 Test Item Value Reference Range Interpretation Comments MAGNESIUM (test code = 2098876939) 2.5 mg/dL 1.7-2.4 H Lab Interpretation (test code = Abnormal 23180-2) [facility] HospitalPhosphorus [id number] 12:05:20 Test Item Value Reference Range Interpretation Comments PHOSPHORUS (test code = 3405584540) 6.2 mg/dL 2.5-5.0 H Lab Interpretation (test code = Abnormal 63596-5) [facility] 21 + LACTIC [id number] 05:53:48 Test Item Value Reference Range Interpretation Comments PH (test code = 7.32-7.42 0485606476) PCO2 STEVO (test code See_Comment [Automa lester = 3847296837) message] The system which generated this result transmitted reference range : 41 - 51 mmHg. T he reference range was not used to interpret this result as normal/abnormal . PO2 STEVO (test code = See_Comment HH [Autom ated 3096795541) message] The system which generated this result transmitted reference range : 25 - 40 mmHg. T he reference range was not used to interpret this result as normal/abnormal . HCO3 STEVO (test code See_Comment L [Automa lester = 1385055250) message] The system which generated this result transmitted reference range : 24 - 28 mEq/L. The reference range was not used to interpr et this result as normal/abnormal . AC VBE(BEAKER) (test mEq/L code = 1073489984) THB STEVO (test code = 17.7 g/dL 13.5-18.0 1892074979) %O2HB STEVO (test code 93.8 % 52.0-63.0 H = 1834719725) %COHB STEVO (test code 2.1 % 0.0-1.5 H = 9290702259) %METHB STEVO (test 0.1 % 0.4-1.5 L code = 4229859690) VOL%O2 STEVO (test 23.3 % 6.0-12.0 H code = 5998269188) NA (test code = 142 mmol/L 135-145 1882968057) K+ (test code = 4.4 mmol/L 3.5-5.0 5828308931) AC CA IONZ (test 5.40 mg/dL 4.50-5.30 H code = 3089381176) GLUCOSE (test code = <20 70-110 LL 9729796638) LACTIC ACID (test 3.37 mmol/L 0.50-2.20 H code = 5119936470) ARPITA (test code = *ac gluc ARPITA) unmeasurable Lab Interpretation Abnormal (test code = 71548-8) [facility]. METABOLIC PANEL (98583)2021-12-15 04:59:53 Test Item Value Reference Range Interpretation Comments NA (test code = 140 mmol/L 135-145 3668667471) K (test code = 4.8 mmol/L 3.5-5.0 3314146600) CL (test code = 100 mmol/L 98-108 8593583987) CO2 TOTAL (test code = 20 mmol/L 23-31 L 1941553622) AGAP (test code = 2-16 H 1120889570) BUN (test code = 14 mg/dL 7-23 7985601845) GLUCOSE (test code = 1083 mg/dL 70-110 HH 2263286783) CREATININE (test code = 0.80 mg/dL 0.60-1.25 8766050324) TOTAL BILI (test code = 1.0 mg/dL 0.1-1.0 5850900243) CALCIUM (test code = 12.0 mg/dL 8.6-10.6 H 7942686269) T PROTEIN (test code = 8.1 g/dL 6.3-8.2 2043319207) ALBUMIN (test code = 4.7 g/dL 3.5-5.0 6114609049) ALK PHOS (test code = 173 U/L 34-122 H 8351120190) ALTv (test code = 36 U/L 5-50 1742-6) AST(SGOT) (test code = 18 U/L 13-40 4174756966) eGFR (test code = mL/min/1.73m2 9837220678) ARPITA (test code = ARPITA) Association of [...] tests). Lab Interpretation Abnormal (test code = 72052-4) [facility]TR[facility] [id number] 03:51:43 Test Item Value Reference Interpretation Comments Range TROPONIN I (test <0.012 See_Comment [Automated code = 5751276168) message] The system which generated this result [...] biotin. Lab Interpretation Normal (test code = 41149-8) [facility]N-[facility]MINAL [id number] 03:48:23 Test Item Value Reference Range Interpretation Comments NT-proBNP (test code 71 pg/mL See_Comment [Autom ated = 9131231006) message] The system which generated this result transmitted reference range : <=125. The reference range was not used to interpret this result as normal/abnormal . ARPITA (test code = ARPITA) Biotin has been reported to cause a negative bias, interpret results relative to patient's use of biotin. Lab Interpretation Normal (test code = 89015-8) [facility]AL [id number] 03:48:23 Test Item Value Reference Range Interpretation Comments NT-proBNP (test code 71 pg/mL See_Comment [Autom ated = 4853949259) message] The system which generated this result transmitted reference range : <=125. The reference range was not used to interpret this result as normal/abnormal . ARPITA (test code = ARPITA) Biotin has been reported to cause a negative bias, interpret results relative to patient's use of biotin. Lab Interpretation Normal (test code = 39630-2) [facility]LIPASE[facility] 03:39:44 Test Item Value Reference Range Interpretation Comments LIPASE (test code = 1820990570) 120 U/L 0-220 Lab Interpretation (test code = Normal 30262-4) [facility]ACT[facility] THRMPLAS [id number] 03:38:23 Test Item Value Reference Range Interpretation Comments APTT Patient (test See_Comment [Automat ed code = 3173-2) message] The system which generated this result transmitted reference range : 23 - 38 Seconds . The reference range was not used to interpr et this result as normal/abnormal . ARPITA (test code = ARPITA) The [facility] patient population mean normal value for aPTT is 30 seconds. Lab Interpretation Normal (test code = 03856-2) [facility] TH[facility] [id number] 03:38:23 Test Item Value Reference Range Interpretation Comments APTT Patient (test See_Comment [Automat ed code = 3173-2) message] The system which generated this result transmitted reference range : 23 - 38 Seconds . The reference range was not used to interpr et this result as normal/abnormal . ARPITA (test code = ARPITA) The [facility] patient population mean normal value for aPTT is 30 seconds. Lab Interpretation Normal (test code = 11490-8) [facility] HospitalPROTHROMBIN TIME / [id number] 03:36:22 Test Item Value Reference Range Interpretation [...] tions. Lab Interpretation (test Normal code = 10005-4) [facility] HospitalCBC WITH [id number] 03:35:42 Test Item Value Reference Range Interpretation Comments WBC (test code = See_Comment H [Automated 0590-2) message] The system which generated this result [...] RDW-SD (test code = 44.7 fL 38.5-51.6 42555-6) RDW-CV (test code = 14.2 % 12.1-15.4 788-0) PLT (test code = See_Comment H [Automated 777-3) message] The system which generated this result transmit lester reference range : 150 - 328 10*3/ ?L. The reference range was not u sed to interpret th is result as normal/abnormal . MPV (test code = 11.5 fL 9.8-13.0 73065-7) NRBC/100 WBC (test See_Comment [Automat ed code = 5073269416) message] The system which generated this result transmit lester reference range : 0.0 - 10.0 /100 WBCs. The reference range was not used to interpret this result as normal/abnormal . NRBC x10^3 (test code <0.01 See_Comment [Auto mated = 1165504362) message] The system which generated this result transmit lester reference range : 10*3/?L. The reference range was not used to interpret this result as normal/abnormal . GRAN MAT (NEUT) % 85.2 % (test code = 770-8) IMM GRAN % (test code 0.90 % = 3099325644) LYMPH % (test code = 5.9 % 736-9) MONO % (test code = 7.8 % 5905-5) EOS % (test code = 0.0 % 713-8) BASO % (test code = 0.2 % 706-2) GRAN MAT x10^3(ANC) 12.85 10*3/uL 1.99-6.95 H (test code = 4400545208) IMM GRAN x10^3 (test 0.13 10*3/uL 0.00-0.06 H code = 0013344250) LYMPH x10^3 (test code 0.89 10*3/uL 1.09-3.23 L = 731-0) MONO x10^3 (test code 1.17 10*3/uL 0.36-1.02 H = 742-7) EOS x10^3 (test code = <0.03 0.06-0.53 L 711-2) BASO x10^3 (test code 0.03 10*3/uL 0.01-0.09 = 704-7) Lab Interpretation Abnormal (test code = 24723-8) [facility] HospitalLactic Acid Whole [id number] 03:22:23 Test Item Value Reference Range Interpretation Comments LACTIC ACID (test code = 4.52 mmol/L 0.50-2.20 H 0968950034) Lab Interpretation (test code = Abnormal 20093-8) [facility] METABOLIC PANEL (NA, K, CL, CO2, GLUCOSE, BUN, CREATININE, [place])2021-11-28 11:13:09 Test Item Value Reference Range Interpretation Comments NA (test code = 137 mmol/L 135-145 4049727782) K (test code = 4.8 mmol/L 3.5-5.0 7476743671) CL (test code = 101 mmol/L 98-108 6052940221) CO2 TOTAL (test code = 24 mmol/L 23-31 4807652368) AGAP (test code = 2-16 3318213202) BUN (test code = 17 mg/dL 7-23 1165318711) GLUCOSE (test code = 323 mg/dL 70-110 H 6298609199) CREATININE (test code = 0.56 mg/dL 0.60-1.25 L 8525012485) CALCIUM (test code = 9.6 mg/dL 8.6-10.6 4722586059) eGFR (test code = mL/min/1.73m2 8861196661) ARPITA (test code = ARPITA) Association of [...] tests). Lab Interpretation Abnormal (test code = 64317-0) [facility] WITH [id number] 10:49:07 Test Item Value Reference Range Interpretation Comments WBC (test code = See_Comment H [Automated 1296-2) message] The sy stem which generated this result transmitted reference range : 4.20 - 10.70 10*3/?L. The reference range was not used to interpret this result as normal/abnormal . RBC (test code = See_Comment [Automated 674-8) message] The sy stem which generated this [...] RDW-SD (test code = 46.7 fL 38.5-51.6 06548-3) RDW-CV (test code = 14.5 % 12.1-15.4 788-0) PLT (test code = See_Comment H [Automated 777-3) message] The sy stem which generated this result transmitted reference range : 150 - 328 10*3/ ?L. The reference r boubacar was not used to interpret this result as normal/abnormal . MPV (test code = 10.2 fL 9.8-13.0 85777-0) NRBC/100 WBC (test See_Comment [Automat ed code = 4928257685) message] The system which generated this result transmitted reference range : 0.0 - 10.0 /100 WBCs. The refer ence range was not u sed to interpret th is result as normal/abnormal . NRBC x10^3 (test code <0.01 See_Comment [Auto mated = 3289749126) message] The s ystem which generated this result transmitted reference range : 10*3/?L. The reference range was not used to interpret this result as normal/abnormal . GRAN MAT (NEUT) % 70.2 % (test code = 770-8) IMM GRAN % (test code 0.80 % = 3146154949) LYMPH % (test code = 18.0 % 736-9) MONO % (test code = 8.5 % 5905-5) EOS % (test code = 2.1 % 713-8) BASO % (test code = 0.4 % 706-2) GRAN MAT x10^3(ANC) 7.63 10*3/uL 1.99-6.95 H (test code = 9613083620) IMM GRAN x10^3 (test 0.09 10*3/uL 0.00-0.06 H code = 2486130309) LYMPH x10^3 (test code 1.96 10*3/uL 1.09-3.23 = 731-0) MONO x10^3 (test code 0.92 10*3/uL 0.36-1.02 = 742-7) EOS x10^3 (test code = 0.23 10*3/uL 0.06-0.53 711-2) BASO x10^3 (test code 0.04 10*3/uL 0.01-0.09 = 704-7) Lab Interpretation Abnormal (test code = 63996-1) [facility] METABOLIC PANEL (NA, K, CL, CO2, GLUCOSE, BUN, CREATININE, [place])2021-11-27 09:48:58 Test Item Value Reference Range Interpretation Comments NA (test code = 135 mmol/L 135-145 1742547675) K (test code = 4.7 mmol/L 3.5-5.0 4180153982) CL (test code = 101 mmol/L 98-108 1887021621) CO2 TOTAL (test code = 23 mmol/L 23-31 9212290718) AGAP (test code = 2-16 1605468527) BUN (test code = 18 mg/dL 7-23 8772313706) GLUCOSE (test code = 346 mg/dL 70-110 H 1602489326) CREATININE (test code = 0.64 mg/dL 0.60-1.25 2192835580) CALCIUM (test code = 9.1 mg/dL 8.6-10.6 1294639397) eGFR (test code = mL/min/1.73m2 8129167898) ARPITA (test code = ARPITA) Association of [...] tests). Lab Interpretation Abnormal (test code = 57850-8) [facility] WITH [id number] 09:06:55 Test Item Value Reference Range Interpretation Comments WBC (test code = See_Comment [Automated 1246-2) message] The sy stem which generated this result transmitted reference range : 4.20 - 10.70 10*3/?L. The reference range was not used to interpret this result as normal/abnormal . RBC (test code = See_Comment [Automated 968-8) message] The sy stem which generated this [...] RDW-SD (test code = 47.7 fL 38.5-51.6 63871-1) RDW-CV (test code = 14.6 % 12.1-15.4 788-0) PLT (test code = See_Comment [Automated 777-3) message] The sy stem which generated this result transmitted reference range : 150 - 328 10*3/ ?L. The reference r boubacar was not used to interpret this result as normal/abnormal . MPV (test code = 9.9 fL 9.8-13.0 15351-4) NRBC/100 WBC (test See_Comment [Automat ed code = 0952329566) message] The system which generated this result transmitted reference range : 0.0 - 10.0 /100 WBCs. The refer ence range was not u sed to interpret th is result as normal/abnormal . NRBC x10^3 (test code <0.01 See_Comment [Auto mated = 6951194886) message] The s ystem which generated this result transmitted reference range : 10*3/?L. The reference range was not used to interpret this result as normal/abnormal . GRAN MAT (NEUT) % 62.6 % (test code = 770-8) IMM GRAN % (test code 1.30 % = 6839638234) LYMPH % (test code = 23.2 % 736-9) MONO % (test code = 9.6 % 5905-5) EOS % (test code = 2.9 % 713-8) BASO % (test code = 0.4 % 706-2) GRAN MAT x10^3(ANC) 5.85 10*3/uL 1.99-6.95 (test code = 4181028269) IMM GRAN x10^3 (test 0.12 10*3/uL 0.00-0.06 H code = 5200206872) LYMPH x10^3 (test code 2.17 10*3/uL 1.09-3.23 = 731-0) MONO x10^3 (test code 0.90 10*3/uL 0.36-1.02 = 742-7) EOS x10^3 (test code = 0.27 10*3/uL 0.06-0.53 711-2) BASO x10^3 (test code 0.04 10*3/uL 0.01-0.09 = 704-7) Lab Interpretation Abnormal (test code = 72527-3) [facility] [id number] 02:01:46 Test Item Value Reference Range Interpretation Comments Blood Culture-Aerobic No organisms No growth Previo us (test code = 35330-0) isolated prelim inary verified result was Culture [...] Culture-Anaerobic isolated preliminar y (test code = 13419-3) verifi ed result was Culture In Progress [...] CDT Lab Interpretation Normal (test code = 62776-5) [facility] [id number] 02:01:46 Test Item Value Reference Range Interpretation Comments Blood Culture-Aerobic No organisms No growth Previo us (test code = 84736-3) isolated prelim inary verified result was Culture [...] Culture-Anaerobic isolated preliminar y (test code = 13037-6) verifi ed result was Culture In Progress [...] CDT Lab Interpretation Normal (test code = 47903-4) [facility] [id number] 12:18:49 Test Item Value Reference Range Interpretation Comments NT-proBNP (test code 117 pg/mL See_Comment [Autom ated = 5677412131) message] The system which generated this result transmitted reference range : <=125. The reference range was not used to interpret this result as normal/abnormal . ARPITA (test code = ARPITA) Biotin has been reported to cause a negative bias, interpret results relative to patient's use of biotin. Lab Interpretation Normal (test code = 60196-4) [facility] ([id number])2021-11-24 12:10:25 Test Item Value Reference Range Interpretation Comments NA (test code = 137 mmol/L 135-145 0422352820) K (test code = 4.6 mmol/L 3.5-5.0 6204405509) CL (test code = 108 mmol/L 98-108 8563530333) CO2 TOTAL (test code = 20 mmol/L 23-31 L 2924424964) AGAP (test code = 2-16 2578264938) BUN (test code = 12 mg/dL 7-23 2931638378) GLUCOSE (test code = 186 mg/dL 70-110 H 8361487687) CREATININE (test code = 0.49 mg/dL 0.60-1.25 L 7441347032) TOTAL BILI (test code = 0.7 mg/dL 0.1-1.8 9350778221) CALCIUM (test code = 8.7 mg/dL 8.6-10.6 6247195374) T PROTEIN (test code = 6.9 g/dL 6.3-8.2 4150361152) ALBUMIN (test code = 3.7 g/dL 3.5-5.0 5432238302) ALK PHOS (test code = 114 U/L 34-122 5741837379) ALTv (test code = 75 U/L 5-50 H 1742-6) AST(SGOT) (test code = 27 U/L 13-40 8233592481) eGFR (test code = mL/min/1.73m2 0641996171) ARPITA (test code = ARPITA) Association of [...] tests). Lab Interpretation Abnormal (test code = 15970-4) [facility] WITH [id number] 11:14:25 Test Item Value Reference Range Interpretation Comments WBC (test code = See_Comment [Automated 8672-2) message] The sy stem which generated this result transmitted reference range : 4.20 - 10.70 10*3/?L. The reference range was not used to interpret this result as normal/abnormal . RBC (test code = See_Comment [Automated 953-7) message] The sy stem which generated this [...] RDW-SD (test code = 48.7 fL 38.5-51.6 76472-2) RDW-CV (test code = 15.0 % 12.1-15.4 788-0) PLT (test code = See_Comment [Automated 777-3) message] The sy stem which generated this result transmitted reference range : 150 - 328 10*3/ ?L. The reference r boubacar was not used to interpret this result as normal/abnormal . MPV (test code = 10.4 fL 9.8-13.0 79561-5) NRBC/100 WBC (test See_Comment [Automat ed code = 4331556930) message] The system which generated this result transmitted reference range : 0.0 - 10.0 /100 WBCs. The refer ence range was not u sed to interpret th is result as normal/abnormal . NRBC x10^3 (test code <0.01 See_Comment [Auto mated = 2149512862) message] The s ystem which generated this result transmitted reference range : 10*3/?L. The reference range was not used to interpret this result as normal/abnormal . GRAN MAT (NEUT) % 65.5 % (test code = 770-8) IMM GRAN % (test code 0.80 % = 2122383740) LYMPH % (test code = 20.9 % 736-9) MONO % (test code = 9.7 % 5905-5) EOS % (test code = 2.7 % 713-8) BASO % (test code = 0.4 % 706-2) GRAN MAT x10^3(ANC) 5.41 10*3/uL 1.99-6.95 (test code = 6016216169) IMM GRAN x10^3 (test 0.07 10*3/uL 0.00-0.06 H code = 9264123616) LYMPH x10^3 (test code 1.73 10*3/uL 1.09-3.23 = 731-0) MONO x10^3 (test code 0.80 10*3/uL 0.36-1.02 = 742-7) EOS x10^3 (test code = 0.22 10*3/uL 0.06-0.53 711-2) BASO x10^3 (test code 0.03 10*3/uL 0.01-0.09 = 704-7) Lab Interpretation Abnormal (test code = 02397-4) [facility] [id number] 13:16:44 Test Item Value Reference Range Interpretation Comments NT-proBNP (test code 157 pg/mL See_Comment H [Autom ated = 1411535846) message] The system which generated this result transmitted reference range : <=125. The reference range was not used to interpret this result as normal/abnormal . ARPITA (test code = ARPITA) Biotin has been reported to cause a negative bias, interpret results relative to patient's use of biotin. Lab Interpretation Abnormal (test code = 05531-5) [facility] ([id number])2021-11-23 13:08:45 Test Item Value Reference Range Interpretation Comments NA (test code = 141 mmol/L 135-145 1468612925) K (test code = 4.2 mmol/L 3.5-5.0 3883559257) CL (test code = 110 mmol/L 98-108 H 8958849972) CO2 TOTAL (test code = 24 mmol/L 23-31 2566302645) AGAP (test code = 2-16 6927926090) BUN (test code = 11 mg/dL 7-23 9299111652) GLUCOSE (test code = 142 mg/dL 70-110 H 6566903008) CREATININE (test code = 0.61 mg/dL 0.60-1.25 7773170353) TOTAL BILI (test code = 0.7 mg/dL 0.1-1.9 8700378891) CALCIUM (test code = 8.5 mg/dL 8.6-10.6 L 3399878284) T PROTEIN (test code = 6.7 g/dL 6.3-8.2 0338735394) ALBUMIN (test code = 3.6 g/dL 3.5-5.0 4955996055) ALK PHOS (test code = 120 U/L 34-122 6620891990) ALTv (test code = 88 U/L 5-50 H 1742-6) AST(SGOT) (test code = 27 U/L 13-40 6751331046) eGFR (test code = mL/min/1.73m2 8676824231) ARPITA (test code = ARPITA) Association of [...] tests). Lab Interpretation Abnormal (test code = 89083-0) [facility]2022-[facility] 13:08:45 Test Item Value Reference Range Interpretation Comments MAGNESIUM (test code = 5552084958) 1.7 mg/dL 1.7-2.4 Lab Interpretation (test code = Normal 88754-3) [facility] WITH [id number] 11:57:56 Test Item Value Reference Range Interpretation [...] RDW-SD (test code = 48.9 fL 38.5-51.6 37603-9) RDW-CV (test code = 14.9 % 12.1-15.4 788-0) PLT (test code = See_Comment [Automated 777-3) message] The sy stem which generated this result transmitted reference range : 150 - 328 10*3/ ?L. The reference r boubacar was not used to interpret this result as normal/abnormal . MPV (test code = 9.4 fL 9.8-13.0 L 36455-7) NRBC/100 WBC (test See_Comment [Automat ed code = 3611102110) message] The system which generated this result transmitted reference range : 0.0 - 10.0 /100 WBCs. The refer ence range was not u sed to interpret th is result as normal/abnormal . NRBC x10^3 (test code <0.01 See_Comment [Auto mated = 5758681167) message] The s ystem which generated this result transmitted reference range : 10*3/?L. The reference range was not used to interpret this result as normal/abnormal . GRAN MAT (NEUT) % 63.9 % (test code = 770-8) IMM GRAN % (test code 0.70 % = 2506292239) LYMPH % (test code = 22.7 % 736-9) MONO % (test code = 9.6 % 5905-5) EOS % (test code = 2.7 % 713-8) BASO % (test code = 0.4 % 706-2) GRAN MAT x10^3(ANC) 4.75 10*3/uL 1.99-6.95 (test code = 9660128614) IMM GRAN x10^3 (test 0.05 10*3/uL 0.00-0.06 code = 4086696090) LYMPH x10^3 (test code 1.69 10*3/uL 1.09-3.23 = 731-0) MONO x10^3 (test code 0.71 10*3/uL 0.36-1.02 = 742-7) EOS x10^3 (test code = 0.20 10*3/uL 0.06-0.53 711-2) BASO x10^3 (test code 0.03 10*3/uL 0.01-0.09 = 704-7) Lab Interpretation Abnormal (test code = 09704-5) [facility] B12, [id number] 19:18:39 Test Item Value Reference Range Interpretation Comments VIT B12 (test code = 249 pg/mL 240-930 9505356272) ARPITA (test code = ARPITA) Biotin has been reported to cause a positive bias, interpret results relative to patient's use of biotin. Lab Interpretation (test Normal code = 06524-8) [facility] B12, [id number] 19:18:39 Test Item Value Reference Range Interpretation Comments VIT B12 (test code = 249 pg/mL 240-930 2415817763) ARPITA (test code = ARPIAT) Biotin has been reported to cause a positive bias, interpret results relative to patient's use of biotin. Lab Interpretation (test Normal code = 91783-3) [facility] D, [id number] 17:30:28 Test Item Value Reference Range Interpretation Comments VIT D 25OH (test code = 16 ng/mL 25-80 L 27276-5) ARPITA (test code = ARPITA) Deficiency: <20 ng/mLInsufficiency: 20-24 ng/mLOptimal: 25-80 ng/mL Lab Interpretation (test Abnormal code = 89295-0) [facility], [id number] 17:30:28 Test Item Value Reference Range Interpretation Comments VIT D 25OH (test code = 16 ng/mL 25-80 L 11255-6) ARPITA (test code = ARPITA) Deficiency: <20 ng/mLInsufficiency: 20-24 ng/mLOptimal: 25-80 ng/mL Lab Interpretation (test Abnormal code = 81618-9) [facility] HospitalPROCALCITONIN2022-05-11 16:07:32 Test Item Value Reference Interpretation Comments Range Procalcitonin (test 0.04 ng/mL See_Comment [Automa lester code = 6035454882) message] The system which generated this result [...] lung abscess/empyema. For further information please refer to:[email or web address] Lab Interpretation Normal (test code = 99053-5) [facility]PROCALCITONIN2022-05-11 16:07:32 Test Item Value Reference Range Interpretation Comments Procalcitonin (test 0.04 ng/mL <0.07 code = 6345743667) ARPITA (test code = ARPITA) INTERPRETATION OF [...] lung abscess/empyema. For further information please refer to:[email or web address] Lab Interpretation Normal (test code = 59975-3) [facility] HospitalSEDIMENTATION [id number] 13:21:10 Test Item Value Reference Range Interpretation Comments ESR (test code = See_Comment H [Automated message] 7989105315) The system tagUin generated this result transmitted ref erence range: 0 - 10 m m/HR. The reference r boubacar was not used to interpret this result as normal/abnor mal. Lab Interpretation (test Abnormal code = 98551-3) [facility] HospitalGLYCOSYLATED HEMOGLOBIN (A1C)2021-11-22 13:12:27 Test Item Value Reference Range Interpretation Comments HGB A1C (test code = 6.3 % 4.0-5.7 H 4548-4) ARPITA (test code = RAPITA) Reference RangesNormal: <5.7%Prediabetes: 5.7 - 6.4%Diabetes: > 6.5% Lab Interpretation (test Abnormal code = 46555-8) [facility]AL [id number] 11:53:14 Test Item Value Reference Range Interpretation Comments NT-proBNP (test code 16 pg/mL See_Comment [Autom ated = 9068472887) message] The system which generated this result transmitted reference range : <=125. The reference range was not used to interpret this result as normal/abnormal . ARPITA (test code = ARPITA) Biotin has been reported to cause a negative bias, interpret results relative to patient's use of biotin. Lab Interpretation Normal (test code = 23241-9) [facility]COMP[facility]OL[facility] (74425)2021-11-22 11:44:55 Test Item Value Reference Range Interpretation Comments NA (test code = 142 mmol/L 135-145 9813908605) K (test code = 3.9 mmol/L 3.5-5.0 9151071807) CL (test code = 108 mmol/L 98-108 6769359184) CO2 TOTAL (test code = 24 mmol/L 23-31 7277997394) AGAP (test code = 2-16 3898515374) BUN (test code = 11 mg/dL 7-23 0862383976) GLUCOSE (test code = 205 mg/dL 70-110 H 8564575939) CREATININE (test code = 0.71 mg/dL 0.60-1.25 5751571354) TOTAL BILI (test code = 0.7 mg/dL 0.1-1.3 7157647712) CALCIUM (test code = 8.9 mg/dL 8.6-10.6 8272086963) T PROTEIN (test code = 7.3 g/dL 6.3-8.2 4388387596) ALBUMIN (test code = 3.8 g/dL 3.5-5.0 5615029950) ALK PHOS (test code = 135 U/L 34-122 H 2667339677) ALTv (test code = 120 U/L 5-50 H 1742-6) AST(SGOT) (test code = 33 U/L 13-40 3879307280) eGFR (test code = mL/min/1.73m2 4471858573) ARPITA (test code = ARPITA) Association of [...] tests). Lab Interpretation Abnormal (test code = 02322-8) [facility]2022-[facility]-11 11:44:55 Test Item Value Reference Range Interpretation Comments MAGNESIUM (test code = 4409789588) 1.6 mg/dL 1.7-2.4 L Lab Interpretation (test code = Abnormal 31845-4) [facility]PHOSPHORUS2022-05-11 11:44:35 Test Item Value Reference Range Interpretation Comments PHOSPHORUS (test code = 1779457915) 4.1 mg/dL 2.5-5.0 Lab Interpretation (test code = Normal 92034-4) [facility] HospitalCREATINE [id number] 11:44:15 Test Item Value Reference Range Interpretation Comments CK (test code = 3635361017) 50 U/L 33-194 Lab Interpretation (test code = Normal 58935-4) [facility] HospitalCREATINE [id number] 11:44:15 Test Item Value Reference Range Interpretation Comments CK (test code = 9585488526) 50 U/L 33-194 Lab Interpretation (test code = Normal 70708-8) [facility] WITH [id number] 11:28:14 Test Item Value Reference Range Interpretation Comments WBC (test code = See_Comment [Automated 0890-2) message] The sy stem which generated this result transmitted reference range : 4.20 - 10.70 10*3/?L. The reference range was not used to interpret this result as normal/abnormal . RBC (test code = See_Comment [Automated 835-8) message] The sy stem which generated this [...] RDW-SD (test code = 48.4 fL 38.5-51.6 83155-9) RDW-CV (test code = 15.1 % 12.1-15.4 788-0) PLT (test code = See_Comment [Automated 777-3) message] The sy stem which generated this result transmitted reference range : 150 - 328 10*3/ ?L. The reference r boubacar was not used to interpret this result as normal/abnormal . MPV (test code = 10.2 fL 9.8-13.0 07152-2) NRBC/100 WBC (test See_Comment [Automat ed code = 9401331871) message] The system which generated this result transmitted reference range : 0.0 - 10.0 /100 WBCs. The refer ence range was not u sed to interpret th is result as normal/abnormal . NRBC x10^3 (test code <0.01 See_Comment [Auto mated = 0310312198) message] The s ystem which generated this result transmitted reference range : 10*3/?L. The reference range was not used to interpret this result as normal/abnormal . GRAN MAT (NEUT) % 67.8 % (test code = 770-8) IMM GRAN % (test code 0.80 % = 9871238529) LYMPH % (test code = 19.8 % 736-9) MONO % (test code = 8.7 % 5905-5) EOS % (test code = 2.7 % 713-8) BASO % (test code = 0.2 % 706-2) GRAN MAT x10^3(ANC) 6.56 10*3/uL 1.99-6.95 (test code = 6046153115) IMM GRAN x10^3 (test 0.08 10*3/uL 0.00-0.06 H code = 7582014916) LYMPH x10^3 (test code 1.91 10*3/uL 1.09-3.23 = 731-0) MONO x10^3 (test code 0.84 10*3/uL 0.36-1.02 = 742-7) EOS x10^3 (test code = 0.26 10*3/uL 0.06-0.53 711-2) BASO x10^3 (test code <0.03 0.01-0.09 = 704-7) Lab Interpretation Abnormal (test code = 08719-2) [facility] [id number] 10:56:10 Test Item Value Reference Range Interpretation Comments IRON (test code = 7066842652) 46 ug/dL 50-160 L TIBC (test code = 1131143846) 299 ug/dL 250-410 % FE SAT (test code = 0432145129) 15 % 20-50 L Lab Interpretation (test code = Abnormal 01047-1) [facility] [id number] 10:56:10 Test Item Value Reference Range Interpretation Comments IRON (test code = 0998284063) 46 ug/dL 50-160 L TIBC (test code = 0395601331) 299 ug/dL 250-410 % FE SAT (test code = 7614642705) 15 % 20-50 L Lab Interpretation (test code = Abnormal 43552-9) [facility]FERRITIN [id number] 10:13:03 Test Item Value Reference Range Interpretation Comments FERRITIN (test code = 89.2 ng/mL 18-464 3218804159) ARPITA (test code = ARPITA) Biotin has been reported to cause a negative bias, interpret results relative to patient's use of biotin. Lab Interpretation (test Normal code = 90349-9) [facility]FERR[facility]IN [id number] 10:13:03 Test Item Value Reference Range Interpretation Comments FERRITIN (test code = 89.2 ng/mL 18.0-464.0 3818464319) ARPITA (test code = ARPITA) Biotin has been reported to cause a negative bias, interpret results relative to patient's use of biotin. Lab Interpretation (test Normal code = 29488-3) [facility] HospitalTHYROID STIMULATING [id number] 10:09:06 Test Item Value Reference Range Interpretation Comments TSH (test code = See_Comment [Automated message] 7506102730) The system tagUin generated this result transmitted ref erence range: 0.45 - 4 .70 mIU/L. The refe rence range was not u sed to interpret this result as normal/abnor mal. Lab Interpretation (test Normal code = 25819-7) [facility] HospitalTHY[facility]ID STIMULATING [id number] 10:09:06 Test Item Value Reference Range Interpretation Comments TSH (test code = See_Comment [Automated message] 1468883510) The system tagUin generated this result transmitted ref erence range: 0.45 - 4 .70 mIU/L. The refe rence range was not u sed to interpret this result as normal/abnor mal. Lab Interpretation (test Normal code = 63733-1) [facility]AL [id number] 09:47:44 Test Item Value Reference Range Interpretation Comments NT-proBNP (test code 12 pg/mL See_Comment [Autom ated = 8532330504) message] The system which generated this result transmitted reference range : <=125. The reference range was not used to interpret this result as normal/abnormal . ARPITA (test code = ARPITA) Biotin has been reported to cause a negative bias, interpret results relative to patient's use of biotin. Lab Interpretation Normal (test code = 65422-4) [facility] HospitalLIPID PANEL ([id number])(TOTAL CHOLESTEROL, TRIGLYCERIDES, HDL)2021-11-22 09:35:58 Test Item Value Reference Range Interpretation Comments CHOL (test code = 250 mg/dL 120-200 H 3805350802) HDL (test code = 34 mg/dL See_Comment L [Automated message] 6848723199) The system tagUin generated this result transmit lester reference range : >=40. The refer ence range was not u sed to interpret th is result as normal/abnormal . HDLC RATIO (test code = See_Comment H [Au tomated message] 7553619739) The system tagUin generated this result transmit lester reference range : <=5.0. The refe rence range was not u sed to interpret th is result as normal/abnormal . TRIG (test code = 394 mg/dL 30-170 H 7225062819) LDL CHOL (test code = 137 mg/dL See_Comment [Auto mated message] 53957-4) The system tagUin generated this result transmit lester reference range : <=160. The refe rence range was not u sed to interpret th is result as normal/abnormal . VLDL (test code = 79 mg/dL 5-60 H 2922858923) Lab Interpretation (test Abnormal code = 65043-2) [facility] [facility]TOTAL CHOLESTEROL, TRIGLYCERIDES, HDL)2021-11-22 09:35:58 Test Item Value Reference Range Interpretation Comments CHOL (test code = 250 mg/dL 120-200 H [id number]) HDL (test code = 34 mg/dL >40 L 2413224233) HDLC RATIO (test code = See_Comment H [Au tomated message] [id number]) The system tagUin generated this result transmit lester reference range : <=5.0. The refe rence range was not u sed to interpret th is result as normal/abnormal . TRIG (test code = 394 mg/dL 30-170 H 5445782489) LDL CHOL (test code = 137 mg/dL See_Comment [Auto mated message] 54412-9) The system tagUin generated this result transmit lester reference range : <=160. The refe rence range was not u sed to interpret th is result as normal/abnormal . VLDL (test code = 79 mg/dL 5-60 H 7610912638) Lab Interpretation (test Abnormal code = 23043-8) [facility]42 Test Item Value Reference Range Interpretation Comments MAGNESIUM (test code = 3135052535) 1.5 mg/dL 1.7-2.4 L Lab Interpretation (test code = Abnormal 96359-3) [facility] 09:35:42 Test Item Value Reference Range Interpretation Comments PHOSPHORUS (test code = 5914584317) 3.3 mg/dL 2.5-5.0 Lab Interpretation (test code = Normal 13604-1) [facility]OLIC PANEL (47469)2021-11-22 01:29:09 Test Item Value Reference Range Interpretation Comments NA (test code = 142 mmol/L 135-145 8146708797) K (test code = 3.7 mmol/L 3.5-5.0 6952757454) CL (test code = 103 mmol/L 98-108 5331596066) CO2 TOTAL (test code = 27 mmol/L 23-31 2973439459) AGAP (test code = 2-16 3114098850) BUN (test code = 11 mg/dL 7-23 4806523849) GLUCOSE (test code = 166 mg/dL 70-110 H 1860619971) CREATININE (test code = 0.61 mg/dL 0.60-1.25 4135438440) TOTAL BILI (test code = 0.8 mg/dL 0.1-1.5 5971075610) CALCIUM (test code = 9.3 mg/dL 8.6-10.6 0083498301) T PROTEIN (test code = 7.4 g/dL 6.3-8.2 8473841031) ALBUMIN (test code = 4.0 g/dL 3.5-5.0 9253817450) ALK PHOS (test code = 164 U/L 34-122 H 1774839499) ALTv (test code = 149 U/L 5-50 H 1742-6) AST(SGOT) (test code = 29 U/L 13-40 3414758810) eGFR (test code = mL/min/1.73m2 0546136077) ARPITA (test code = ARPITA) Association of [...] tests). Lab Interpretation Abnormal (test code = 82810-7) [facility]ACT[facility] THRMPLAS [id number] 01:23:46 Test Item Value Reference Range Interpretation Comments APTT Patient (test See_Comment [Automat ed code = 3173-2) message] The system which generated this result transmitted reference range : 23 - 38 Seconds . The reference range was not used to interpr et this result as normal/abnormal . ARPITA (test code = ARPITA) The [facility] patient population mean normal value for aPTT is 30 seconds. Lab Interpretation Normal (test code = 29988-4) [facility] HospitalPROTHROMBIN TIME / [id number] 01:21:51 Test Item Value Reference Range Interpretation [...] tions. Lab Interpretation (test Normal code = 60519-0) [facility] HospitalCBC WITH [id number] 01:15:28 Test Item Value Reference Range Interpretation Comments WBC (test code = See_Comment H [Automated 4390-2) message] The sy stem which generated this result transmitted reference range : 4.20 - 10.70 10*3/?L. The reference range was not used to interpret this result as normal/abnormal . RBC (test code = See_Comment H [Automated 509-8) message] The sy stem which generated this [...] RDW-SD (test code = 48.4 fL 38.5-51.6 19299-5) RDW-CV (test code = 15.1 % 12.1-15.4 788-0) PLT (test code = See_Comment [Automated 777-3) message] The sy stem which generated this result transmitted reference range : 150 - 328 10*3/ ?L. The reference r boubacar was not used to interpret this result as normal/abnormal . MPV (test code = 10.1 fL 9.8-13.0 17070-7) NRBC/100 WBC (test See_Comment [Automat ed code = 0488523708) message] The system which generated this result transmitted reference range : 0.0 - 10.0 /100 WBCs. The refer ence range was not u sed to interpret th is result as normal/abnormal . NRBC x10^3 (test code <0.01 See_Comment [Auto mated = 2994518189) message] The s ystem which generated this result transmitted reference range : 10*3/?L. The reference range was not used to interpret this result as normal/abnormal . GRAN MAT (NEUT) % 72.7 % (test code = 770-8) IMM GRAN % (test code 0.60 % = 6956406815) LYMPH % (test code = 15.5 % 736-9) MONO % (test code = 8.2 % 5905-5) EOS % (test code = 2.6 % 713-8) BASO % (test code = 0.4 % 706-2) GRAN MAT x10^3(ANC) 7.83 10*3/uL 1.99-6.95 H (test code = 8506539928) IMM GRAN x10^3 (test 0.07 10*3/uL 0.00-0.06 H code = 5636048893) LYMPH x10^3 (test code 1.67 10*3/uL 1.09-3.23 = 731-0) MONO x10^3 (test code 0.88 10*3/uL 0.36-1.02 = 742-7) EOS x10^3 (test code = 0.28 10*3/uL 0.06-0.53 711-2) BASO x10^3 (test code 0.04 10*3/uL 0.01-0.09 = 704-7) Lab Interpretation Abnormal (test code = 89157-1) [facility] HospitalLactic Acid Whole [id number] 01:14:32 Test Item Value Reference Range Interpretation Comments LACTIC ACID (test code = 1.86 mmol/L 0.50-2.20 4464969489) Lab Interpretation (test code = Normal 63193-0) [facility] HospitalCHEM [id number] 12:58:00 Test Item Value Reference Range Interpretation Comments Glucose Lvl (test code = Glucose Lvl) 228 70-99 [facility]2022-04-12 12:58:00 Test Item Value Reference Range Interpretation Comments BUN (test code = BUN) 23 7- [facility]2022-04-12 12:58:00 Test Item Value Reference Range Interpretation Comments Creatinine Lvl (test code = Creatinine 0.78 0.50-1.40 Lvl) [facility]2022-04-12 12:58:00 Test Item Value Reference Range Interpretation Comments Sodium Lvl (test code = Sodium Lvl) 138 135-145 [facility]2022-04-12 12:58:00 Test Item Value Reference Range Interpretation Comments Potassium Lvl (test code = Potassium 4.6 3.5-5.1 Lvl) [facility]2022-04-12 12:58:00 Test Item Value Reference Range Interpretation Comments Chloride Lvl (test code = Chloride Lvl) 108 95-109 [facility]2022-04-12 12:58:00 Test Item Value Reference Range Interpretation Comments CO2 (test code = CO2) 23 24-32 [facility]2022-04-12 12:58:00 Test Item Value Reference Range Interpretation Comments Calcium Lvl (test code = Calcium Lvl) 9.0 8.5-10.5 [facility]2022-04-12 12:58:00 Test Item Value Reference Range Interpretation Comments AGAP (test code = AGAP) 11.6 10.0-20.0 [facility]2022-04-12 12:58:00 Test Item Value Reference Range Interpretation Comments eGFR (test code = eGFR) 116 [facility]ZxbfdguULYIWHMCAU2308-77-87 12:58:00 Test Item Value Reference Range Interpretation Comments WBC (test code = WBC) 10.5 3.7-10.4 [facility] TylerDgjetklJHWZYCYVDR4192-10-31 12:58:00 Test Item Value Reference Range Interpretation Comments RBC (test code = RBC) 5.48 4.70-6.10 [facility] TylerYnkwxqeNIHBNNVSZX1953-62-44 12:58:00 Test Item Value Reference Range Interpretation Comments Hgb (test code = Hgb) 16.0 14.0-18.0 [facility] TylerLfwvrejEHVLSLIUZL6172-05-49 12:58:00 Test Item Value Reference Range Interpretation Comments Hct (test code = Hct) 49.8 42.0-54.0 [facility] TylerEmgsuvsJRZGSUUBTF5024-45-13 12:58:00 Test Item Value Reference Range Interpretation Comments MCV (test code = MCV) 90.8 80.0-94.0 [facility] TylerMbqpvfdWIKCLEMEUD4685-91-40 12:58:00 Test Item Value Reference Range Interpretation Comments MCH (test code = MCH) 29.1 pg 27.0-31.0 [facility] TylerRoqvchcSQGFDHVDXP0606-72-82 12:58:00 Test Item Value Reference Range Interpretation Comments MCHC (test code = MCHC) 32.1 32.0-36.0 [facility] TylerTubuxgwXNQSXSKZHX7997-82-65 12:58:00 Test Item Value Reference Range Interpretation Comments RDW (test code = RDW) 15.5 11.5-14.5 [facility] TylerOwdhvfiMCTCDJZRQZ9820-47-82 12:58:00 Test Item Value Reference Range Interpretation Comments Platelet (test code = Platelet) 312 133-450 [facility] TylerGdqbrxmFKOSEHWAHE9484-54-12 12:58:00 Test Item Value Reference Range Interpretation Comments MPV (test code = MPV) 8.3 7.4-10.4 [facility] TylerFoulbjzJRFVOXLDWK2830-38-37 12:58:00 Test Item Value Reference Range Interpretation Comments PT (test code = PT) 12.9 s 12.0-14.7 [facility] TylerVquyzusRFWJKMYWXG5555-21-78 12:58:00 Test Item Value Reference Range Interpretation Comments INR (test code = INR) 0.98 1 0.85-1.17 [place] 122332-04-12 12:58:00 Test Item Value Reference Range Interpretation Comments PTT (test code = PTT) 27.3 s 22.9-35.8 [place] 122332-04-12 12:58:00 Test Item Value Reference Range Interpretation Comments Segs (test code = Segs) 71.2 45.0-75.0 [place] 122332-04-12 12:58:00 Test Item Value Reference Range Interpretation Comments Lymphocytes (test code = Lymphocytes) 21.1 20.0-40.0 [place] [address]-04-12 12:58:00 Test Item Value Reference Range Interpretation Comments Monocytes (test code = Monocytes) 6.8 2.0-12.0 [place] 122332-04-12 12:58:00 Test Item Value Reference Range Interpretation Comments Eosinophils (test code = 0.1 See_Comment [A utomated message] The Eosinophils) system which ge nerated this result tra nsmitted reference range : <=4.0. The reference r boubacar was not used to int erpret this result as normal/abnormal . [facility] TylerAjxhxcnIZVWQBTRTG6591-69-94 12:58:00 Test Item Value Reference Range Interpretation Comments Basophils (test code = 0.8 See_Comment [Aut omated message] The Basophils) system which ge nerated this result tra nsmitted reference range : <=1.0. The reference r boubacar was not used to int erpret this result as normal/abnormal . [place] 122332-04-12 12:58:00 Test Item Value Reference Range Interpretation Comments Neutrophils # (test code = Neutrophils 7.5 1.5-8.1 #) [place] 122332-04-12 12:58:00 Test Item Value Reference Range Interpretation Comments Lymphocytes # (test code = Lymphocytes 2.2 1.0-5.5 #) [place] 122332-04-12 12:58:00 Test Item Value Reference Range Interpretation Comments Monocytes # (test code 0.7 See_Comment [Aut omated message] The = Monocytes #) system which generated this result tra nsmitted reference range : <=0.8. The reference r boubacar was not used to int erpret this result as normal/abnormal . [place] 122332-04-12 12:58:00 Test Item Value Reference Range Interpretation Comments Basophils # (test code 0.1 See_Comment [Aut omated message] The = Basophils #) system which generated this result tra nsmitted reference range : <=0.2. The reference r boubacar was not used to int erpret this result as normal/abnormal . [facility]2022-04-12 12:58:00 Test Item Value Reference Range Interpretation Comments Glucose Lvl (test code = Glucose Lvl) 228 70-99 [place] 872842-04-12 12:58:00 Test Item Value Reference Range Interpretation Comments BUN (test code = BUN) 23 7-22 [place] 872842-04-12 12:58:00 Test Item Value Reference Range Interpretation Comments Creatinine Lvl (test code = Creatinine 0.78 0.50-1.40 Lvl) [place] 872842-04-12 12:58:00 Test Item Value Reference Range Interpretation Comments Sodium Lvl (test code = Sodium Lvl) 138 135-145 [place] 872842-04-12 12:58:00 Test Item Value Reference Range Interpretation Comments Potassium Lvl (test code = Potassium 4.6 3.5-5.1 Lvl) [facility]2022-04-12 12:58:00 Test Item Value Reference Range Interpretation Comments Chloride Lvl (test code = Chloride Lvl) 108 95-109 [place] 872842-04-12 12:58:00 Test Item Value Reference Range Interpretation Comments CO2 (test code = CO2) 23 24-32 [place] 872842-04-12 12:58:00 Test Item Value Reference Range Interpretation Comments Calcium Lvl (test code = Calcium Lvl) 9.0 8.5-10.5 [place] 872842-04-12 12:58:00 Test Item Value Reference Range Interpretation Comments AGAP (test code = AGAP) 11.6 10.0-20.0 [place] 872842-04-12 12:58:00 Test Item Value Reference Range Interpretation Comments eGFR (test code = eGFR) 116 [place] 122332-04-12 12:58:00 Test Item Value Reference Range Interpretation Comments WBC (test code = WBC) 10.5 3.7-10.4 [facility] TylerYmfujgpVAYMEFZQBB7676-34-13 12:58:00 Test Item Value Reference Range Interpretation Comments RBC (test code = RBC) 5.48 4.70-6.10 [facility] TylerKnpylhaDASOJEMCZR4626-14-65 12:58:00 Test Item Value Reference Range Interpretation Comments Hgb (test code = Hgb) 16.0 14.0-18.0 [facility] TylerIslfunjRQMLBPGTUT2407-24-80 12:58:00 Test Item Value Reference Range Interpretation Comments Hct (test code = Hct) 49.8 42.0-54.0 [facility] TylerLytgpqsYXMBOVZVRI8001-96-61 12:58:00 Test Item Value Reference Range Interpretation Comments MCV (test code = MCV) 90.8 80.0-94.0 [facility] TylerHrufyktPZSXDBOEXC9045-24-04 12:58:00 Test Item Value Reference Range Interpretation Comments MCH (test code = MCH) 29.1 pg 27.0-31.0 [facility] TylerRpdcgnaCNBNRDHTTA1861-17-11 12:58:00 Test Item Value Reference Range Interpretation Comments MCHC (test code = MCHC) 32.1 32.0-36.0 [facility] TylerHporznkPFKQEVGGLG6338-30-57 12:58:00 Test Item Value Reference Range Interpretation Comments RDW (test code = RDW) 15.5 11.5-14.5 [facility] TylerErivmsqVMCYHEVEUJ9830-97-19 12:58:00 Test Item Value Reference Range Interpretation Comments Platelet (test code = Platelet) 312 133-450 [facility] TylerHbetwkqDSWZOTPZXG6351-58-87 12:58:00 Test Item Value Reference Range Interpretation Comments MPV (test code = MPV) 8.3 7.4-10.4 [facility] TylerXqwglgxLUYEVUJFJD7770-48-43 12:58:00 Test Item Value Reference Range Interpretation Comments PT (test code = PT) 12.9 s 12.0-14.7 [facility] TylerWzasjegOYKUJFJOBB5500-18-69 12:58:00 Test Item Value Reference Range Interpretation Comments INR (test code = INR) 0.98 1 0.85-1.17 [facility] TylerMxvxxetLXQLYXJZTF0589-35-18 12:58:00 Test Item Value Reference Range Interpretation Comments PTT (test code = PTT) 27.3 s 22.9-35.8 [place] 122332-04-12 12:58:00 Test Item Value Reference Range Interpretation Comments Segs (test code = Segs) 71.2 45.0-75.0 [place] [address]-04-12 12:58:00 Test Item Value Reference Range Interpretation Comments Lymphocytes (test code = Lymphocytes) 21.1 20.0-40.0 [place] [address]-04-12 12:58:00 Test Item Value Reference Range Interpretation Comments Monocytes (test code = Monocytes) 6.8 2.0-12.0 [place] [address]-04-12 12:58:00 Test Item Value Reference Range Interpretation Comments Eosinophils (test code = 0.1 See_Comment [A utomated message] The Eosinophils) system which ge nerated this result tra nsmitted reference range : <=4.0. The reference r boubacar was not used to int erpret this result as normal/abnormal . [place] 122332-04-12 12:58:00 Test Item Value Reference Range Interpretation Comments Basophils (test code = 0.8 See_Comment [Aut omated message] The Basophils) system which ge nerated this result tra nsmitted reference range : <=1.0. The reference r boubacar was not used to int erpret this result as normal/abnormal . [place] 122332-04-12 12:58:00 Test Item Value Reference Range Interpretation Comments Neutrophils # (test code = Neutrophils 7.5 1.5-8.1 #) [place] 122332-04-12 12:58:00 Test Item Value Reference Range Interpretation Comments Lymphocytes # (test code = Lymphocytes 2.2 1.0-5.5 #) [place] [address]-04-12 12:58:00 Test Item Value Reference Range Interpretation Comments Monocytes # (test code 0.7 See_Comment [Aut omated message] The = Monocytes #) system which generated this result tra nsmitted reference range : <=0.8. The reference r boubacar was not used to int erpret this result as normal/abnormal . [place] [address]-04-12 12:58:00 Test Item Value Reference Range Interpretation Comments Basophils # (test code 0.1 See_Comment [Aut omated message] The = Basophils #) system which generated this result tra nsmitted reference range : <=0.2. The reference r boubacar was not used to int erpret this result as normal/abnormal . [place] 872842-04-12 12:58:00 Test Item Value Reference Range Interpretation Comments Glucose Lvl (test code = Glucose Lvl) 228 70-99 [place] 872842-04-12 12:58:00 Test Item Value Reference Range Interpretation Comments BUN (test code = BUN) 23 7-22 [place] 872842-04-12 12:58:00 Test Item Value Reference Range Interpretation Comments Creatinine Lvl (test code = Creatinine 0.78 0.50-1.40 Lvl) [place] 872842-04-12 12:58:00 Test Item Value Reference Range Interpretation Comments Sodium Lvl (test code = Sodium Lvl) 138 135-145 [place] 872842-04-12 12:58:00 Test Item Value Reference Range Interpretation Comments Potassium Lvl (test code = Potassium 4.6 3.5-5.1 Lvl) [place] 872842-04-12 12:58:00 Test Item Value Reference Range Interpretation Comments Chloride Lvl (test code = Chloride Lvl) 108 95-109 [place] 872842-04-12 12:58:00 Test Item Value Reference Range Interpretation Comments CO2 (test code = CO2) 23 24-32 [place] 872842-04-12 12:58:00 Test Item Value Reference Range Interpretation Comments Calcium Lvl (test code = Calcium Lvl) 9.0 8.5-10.5 [place] 872842-04-12 12:58:00 Test Item Value Reference Range Interpretation Comments AGAP (test code = AGAP) 11.6 10.0-20.0 [place] 872842-04-12 12:58:00 Test Item Value Reference Range Interpretation Comments eGFR (test code = eGFR) 116 [place] 122332-04-12 12:58:00 Test Item Value Reference Range Interpretation Comments WBC (test code = WBC) 10.5 3.7-10.4 [place] 122332-04-12 12:58:00 Test Item Value Reference Range Interpretation Comments RBC (test code = RBC) 5.48 4.70-6.10 [facility] TylerWguwhlwECOLJKVEBY7752-84-00 12:58:00 Test Item Value Reference Range Interpretation Comments Hgb (test code = Hgb) 16.0 14.0-18.0 [facility] TylerClzhbtlKTJRBULQWQ1936-59-01 12:58:00 Test Item Value Reference Range Interpretation Comments Hct (test code = Hct) 49.8 42.0-54.0 [facility] TylerHxeedvjWODIMMEBFU2851-25-96 12:58:00 Test Item Value Reference Range Interpretation Comments MCV (test code = MCV) 90.8 80.0-94.0 [place] 122332-04-12 12:58:00 Test Item Value Reference Range Interpretation Comments MCH (test code = MCH) 29.1 pg 27.0-31.0 [facility] TylerZujvmmbGIRXOEVZIS5396-71-01 12:58:00 Test Item Value Reference Range Interpretation Comments MCHC (test code = MCHC) 32.1 32.0-36.0 [place] 122332-04-12 12:58:00 Test Item Value Reference Range Interpretation Comments RDW (test code = RDW) 15.5 11.5-14.5 [facility] TylerIjcfmweNXBOKKJAHQ4100-59-54 12:58:00 Test Item Value Reference Range Interpretation Comments Platelet (test code = Platelet) 312 133-450 [facility] TylerFrrepbkTJLHMPEVAG7684-82-89 12:58:00 Test Item Value Reference Range Interpretation Comments MPV (test code = MPV) 8.3 7.4-10.4 [place] 122332-04-12 12:58:00 Test Item Value Reference Range Interpretation Comments PT (test code = PT) 12.9 s 12.0-14.7 [place] [address]-04-12 12:58:00 Test Item Value Reference Range Interpretation Comments INR (test code = INR) 0.98 1 0.85-1.17 [place] [address]-04-12 12:58:00 Test Item Value Reference Range Interpretation Comments PTT (test code = PTT) 27.3 s 22.9-35.8 [place] 122332-04-12 12:58:00 Test Item Value Reference Range Interpretation Comments Segs (test code = Segs) 71.2 45.0-75.0 [place] [address]-04-12 12:58:00 Test Item Value Reference Range Interpretation Comments Lymphocytes (test code = Lymphocytes) 21.1 20.0-40.0 [place] [address]-04-12 12:58:00 Test Item Value Reference Range Interpretation Comments Monocytes (test code = Monocytes) 6.8 2.0-12.0 [place] [address]-04-12 12:58:00 Test Item Value Reference Range Interpretation Comments Eosinophils (test code = 0.1 See_Comment [A utomated message] The Eosinophils) system which ge nerated this result tra nsmitted reference range : <=4.0. The reference r boubacar was not used to int erpret this result as normal/abnormal . [place] [address]-04-12 12:58:00 Test Item Value Reference Range Interpretation Comments Basophils (test code = 0.8 See_Comment [Aut omated message] The Basophils) system which ge nerated this result tra nsmitted reference range : <=1.0. The reference r boubacar was not used to int erpret this result as normal/abnormal . [place] 122332-04-12 12:58:00 Test Item Value Reference Range Interpretation Comments Neutrophils # (test code = Neutrophils 7.5 1.5-8.1 #) [place] 122332-04-12 12:58:00 Test Item Value Reference Range Interpretation Comments Lymphocytes # (test code = Lymphocytes 2.2 1.0-5.5 #) [place] [address]-04-12 12:58:00 Test Item Value Reference Range Interpretation Comments Monocytes # (test code 0.7 See_Comment [Aut omated message] The = Monocytes #) system which generated this result tra nsmitted reference range : <=0.8. The reference r boubacar was not used to int erpret this result as normal/abnormal . [place] [address]-04-12 12:58:00 Test Item Value Reference Range Interpretation Comments Basophils # (test code 0.1 See_Comment [Aut omated message] The = Basophils #) system which generated this result tra nsmitted reference range : <=0.2. The reference r boubacar was not used to int erpret this result as normal/abnormal . [place] 872842-04-12 12:58:00 Test Item Value Reference Range Interpretation Comments Glucose Lvl (test code = Glucose Lvl) 228 70-99 [place] 872842-04-12 12:58:00 Test Item Value Reference Range Interpretation Comments BUN (test code = BUN) 23 7-22 [place] 872842-04-12 12:58:00 Test Item Value Reference Range Interpretation Comments Creatinine Lvl (test code = Creatinine 0.78 0.50-1.40 Lvl) [place] 872842-04-12 12:58:00 Test Item Value Reference Range Interpretation Comments Sodium Lvl (test code = Sodium Lvl) 138 135-145 [place] 872842-04-12 12:58:00 Test Item Value Reference Range Interpretation Comments Potassium Lvl (test code = Potassium 4.6 3.5-5.1 Lvl) [facility]2022-04-12 12:58:00 Test Item Value Reference Range Interpretation Comments Chloride Lvl (test code = Chloride Lvl) 108 95-109 [place] 872842-04-12 12:58:00 Test Item Value Reference Range Interpretation Comments CO2 (test code = CO2) 23 24-32 [facility]2022-04-12 12:58:00 Test Item Value Reference Range Interpretation Comments Calcium Lvl (test code = Calcium Lvl) 9.0 8.5-10.5 [facility]2022-04-12 12:58:00 Test Item Value Reference Range Interpretation Comments AGAP (test code = AGAP) 11.6 10.0-20.0 [facility]2022-04-12 12:58:00 Test Item Value Reference Range Interpretation Comments eGFR (test code = eGFR) 116 [facility] TylerQmmqrvbQJZEOSYGCX8923-30-78 12:58:00 Test Item Value Reference Range Interpretation Comments WBC (test code = WBC) 10.5 3.7-10.4 [facility] TylerMlebummTTLWWEHEQC7203-39-50 12:58:00 Test Item Value Reference Range Interpretation Comments RBC (test code = RBC) 5.48 4.70-6.10 [facility] TylerWydrfsfMBBEXGDPKD9397-49-07 12:58:00 Test Item Value Reference Range Interpretation Comments Hgb (test code = Hgb) 16.0 14.0-18.0 [place] 122332-04-12 12:58:00 Test Item Value Reference Range Interpretation Comments Hct (test code = Hct) 49.8 42.0-54.0 [place] 122332-04-12 12:58:00 Test Item Value Reference Range Interpretation Comments MCV (test code = MCV) 90.8 80.0-94.0 [place] [address]-04-12 12:58:00 Test Item Value Reference Range Interpretation Comments MCH (test code = MCH) 29.1 pg 27.0-31.0 [place] [address]-04-12 12:58:00 Test Item Value Reference Range Interpretation Comments MCHC (test code = MCHC) 32.1 32.0-36.0 [place] [address]-04-12 12:58:00 Test Item Value Reference Range Interpretation Comments RDW (test code = RDW) 15.5 11.5-14.5 [place] [address]-04-12 12:58:00 Test Item Value Reference Range Interpretation Comments Platelet (test code = Platelet) 312 133-450 [facility] [id number] 12:58:00 Test Item Value Reference Range Interpretation Comments MPV (test code = MPV) 8.3 7.4-10.4 [place] [address]-04-12 12:58:00 Test Item Value Reference Range Interpretation Comments PT (test code = PT) 12.9 s 12.0-14.7 [place] [address]-04-12 12:58:00 Test Item Value Reference Range Interpretation Comments INR (test code = INR) 0.98 1 0.85-1.17 [place] [address]-04-12 12:58:00 Test Item Value Reference Range Interpretation Comments PTT (test code = PTT) 27.3 s 22.9-35.8 [place] [address]-04-12 12:58:00 Test Item Value Reference Range Interpretation Comments Segs (test code = Segs) 71.2 45.0-75.0 [place] [address]-04-12 12:58:00 Test Item Value Reference Range Interpretation Comments Lymphocytes (test code = Lymphocytes) 21.1 20.0-40.0 [place] 122332-04-12 12:58:00 Test Item Value Reference Range Interpretation Comments Monocytes (test code = Monocytes) 6.8 2.0-12.0 [place] [address]-04-12 12:58:00 Test Item Value Reference Range Interpretation Comments Eosinophils (test code = 0.1 See_Comment [A utomated message] The Eosinophils) system which ge nerated this result tra nsmitted reference range : <=4.0. The reference r boubacar was not used to int erpret this result as normal/abnormal . [place] 122332-04-12 12:58:00 Test Item Value Reference Range Interpretation Comments Basophils (test code = 0.8 See_Comment [Aut omated message] The Basophils) system which ge nerated this result tra nsmitted reference range : <=1.0. The reference r boubacar was not used to int erpret this result as normal/abnormal . [place] 122332-04-12 12:58:00 Test Item Value Reference Range Interpretation Comments Neutrophils # (test code = Neutrophils 7.5 1.5-8.1 #) [place] [address]-04-12 12:58:00 Test Item Value Reference Range Interpretation Comments Lymphocytes # (test code = Lymphocytes 2.2 1.0-5.5 #) [place] [address]-04-12 12:58:00 Test Item Value Reference Range Interpretation Comments Monocytes # (test code 0.7 See_Comment [Aut omated message] The = Monocytes #) system which generated this result tra nsmitted reference range : <=0.8. The reference r boubacar was not used to int erpret this result as normal/abnormal . [place] [address]-04-12 12:58:00 Test Item Value Reference Range Interpretation Comments Basophils # (test code 0.1 See_Comment [Aut omated message] The = Basophils #) system which generated this result tra nsmitted reference range : <=0.2. The reference r boubacar was not used to int erpret this result as normal/abnormal . [place] 872842-04-12 12:58:00 Test Item Value Reference Range Interpretation Comments Glucose Lvl (test code = Glucose Lvl) 228 70-99 [place] 872842-04-12 12:58:00 Test Item Value Reference Range Interpretation Comments BUN (test code = BUN) 23 7-22 [place] 872842-04-12 12:58:00 Test Item Value Reference Range Interpretation Comments Creatinine Lvl (test code = Creatinine 0.78 0.50-1.40 Lvl) [place] 872842-04-12 12:58:00 Test Item Value Reference Range Interpretation Comments Sodium Lvl (test code = Sodium Lvl) 138 135-145 [place] 872842-04-12 12:58:00 Test Item Value Reference Range Interpretation Comments Potassium Lvl (test code = Potassium 4.6 3.5-5.1 Lvl) [place] 872842-04-12 12:58:00 Test Item Value Reference Range Interpretation Comments Chloride Lvl (test code = Chloride Lvl) 108 95-109 [place] 872842-04-12 12:58:00 Test Item Value Reference Range Interpretation Comments CO2 (test code = CO2) 24-32 [place] 872842-04-12 12:58:00 Test Item Value Reference Range Interpretation Comments Calcium Lvl (test code = Calcium Lvl) 9.0 8.5-10.5 [place] 872842-04-12 12:58:00 Test Item Value Reference Range Interpretation Comments AGAP (test code = AGAP) 11.6 10.0-20.0 [place] 872842-04-12 12:58:00 Test Item Value Reference Range Interpretation Comments eGFR (test code = eGFR) 116 [facility] [id number] 12:58:00 Test Item Value Reference Range Interpretation Comments WBC (test code = WBC) 10.5 3.7-10.4 [place] 122332-04-12 12:58:00 Test Item Value Reference Range Interpretation Comments RBC (test code = RBC) 5.48 4.70-6.10 [place] [address]-04-12 12:58:00 Test Item Value Reference Range Interpretation Comments Hgb (test code = Hgb) 16.0 14.0-18.0 [place] [address]-04-12 12:58:00 Test Item Value Reference Range Interpretation Comments Hct (test code = Hct) 49.8 42.0-54.0 [place] 122332-04-12 12:58:00 Test Item Value Reference Range Interpretation Comments MCV (test code = MCV) 90.8 80.0-94.0 [place] 122332-04-12 12:58:00 Test Item Value Reference Range Interpretation Comments MCH (test code = MCH) 29.1 pg 27.0-31.0 [place] 122332-04-12 12:58:00 Test Item Value Reference Range Interpretation Comments MCHC (test code = MCHC) 32.1 32.0-36.0 [place] 122332-04-12 12:58:00 Test Item Value Reference Range Interpretation Comments RDW (test code = RDW) 15.5 11.5-14.5 [place] 122332-04-12 12:58:00 Test Item Value Reference Range Interpretation Comments Platelet (test code = Platelet) 312 133-450 [facility] [id number] 12:58:00 Test Item Value Reference Range Interpretation Comments MPV (test code = MPV) 8.3 7.4-10.4 [place] 122332-04-12 12:58:00 Test Item Value Reference Range Interpretation Comments PT (test code = PT) 12.9 s 12.0-14.7 [place] [address]-04-12 12:58:00 Test Item Value Reference Range Interpretation Comments INR (test code = INR) 0.98 1 0.85-1.17 [place] [address]-04-12 12:58:00 Test Item Value Reference Range Interpretation Comments PTT (test code = PTT) 27.3 s 22.9-35.8 [place] [address]-04-12 12:58:00 Test Item Value Reference Range Interpretation Comments Segs (test code = Segs) 71.2 45.0-75.0 [place] [address]-04-12 12:58:00 Test Item Value Reference Range Interpretation Comments Lymphocytes (test code = Lymphocytes) 21.1 20.0-40.0 [place] [address]-04-12 12:58:00 Test Item Value Reference Range Interpretation Comments Monocytes (test code = Monocytes) 6.8 2.0-12.0 [place] 122332-04-12 12:58:00 Test Item Value Reference Range Interpretation Comments Eosinophils (test code = 0.1 See_Comment [A utomated message] The Eosinophils) system which ge nerated this result tra nsmitted reference range : <=4.0. The reference r boubacar was not used to int erpret this result as normal/abnormal . [place] 122332-04-12 12:58:00 Test Item Value Reference Range Interpretation Comments Basophils (test code = 0.8 See_Comment [Aut omated message] The Basophils) system which ge nerated this result tra nsmitted reference range : <=1.0. The reference r boubacar was not used to int erpret this result as normal/abnormal . [place] 122332-04-12 12:58:00 Test Item Value Reference Range Interpretation Comments Neutrophils # (test code = Neutrophils 7.5 1.5-8.1 #) [place] 122332-04-12 12:58:00 Test Item Value Reference Range Interpretation Comments Lymphocytes # (test code = Lymphocytes 2.2 1.0-5.5 #) [place] 122332-04-12 12:58:00 Test Item Value Reference Range Interpretation Comments Monocytes # (test code 0.7 See_Comment [Aut omated message] The = Monocytes #) system which generated this result tra nsmitted reference range : <=0.8. The reference r boubacar was not used to int erpret this result as normal/abnormal . [place] 122332-04-12 12:58:00 Test Item Value Reference Range Interpretation Comments Basophils # (test code 0.1 See_Comment [Aut omated message] The = Basophils #) system which generated this result tra nsmitted reference range : <=0.2. The reference r boubacar was not used to int erpret this result as normal/abnormal . [place] 872842-04-12 12:58:00 Test Item Value Reference Range Interpretation Comments Glucose Lvl (test code = Glucose Lvl) 228 70-99 [place] 872842-04-12 12:58:00 Test Item Value Reference Range Interpretation Comments BUN (test code = BUN) 23 7-22 [place] 872842-04-12 12:58:00 Test Item Value Reference Range Interpretation Comments Creatinine Lvl (test code = Creatinine 0.78 0.50-1.40 Lvl) [place] 872842-04-12 12:58:00 Test Item Value Reference Range Interpretation Comments Sodium Lvl (test code = Sodium Lvl) 138 135-145 [place] 872842-04-12 12:58:00 Test Item Value Reference Range Interpretation Comments Potassium Lvl (test code = Potassium 4.6 3.5-5.1 Lvl) [place] 872842-04-12 12:58:00 Test Item Value Reference Range Interpretation Comments Chloride Lvl (test code = Chloride Lvl) 108 95-109 [place] 872842-04-12 12:58:00 Test Item Value Reference Range Interpretation Comments CO2 (test code = CO2) 23 24-32 [place] 872842-04-12 12:58:00 Test Item Value Reference Range Interpretation Comments Calcium Lvl (test code = Calcium Lvl) 9.0 8.5-10.5 [place] 872842-04-12 12:58:00 Test Item Value Reference Range Interpretation Comments AGAP (test code = AGAP) 11.6 10.0-20.0 [place] 872842-04-12 12:58:00 Test Item Value Reference Range Interpretation Comments eGFR (test code = eGFR) 116 [place] 122332-04-12 12:58:00 Test Item Value Reference Range Interpretation Comments WBC (test code = WBC) 10.5 3.7-10.4 [place] [address]-04-12 12:58:00 Test Item Value Reference Range Interpretation Comments RBC (test code = RBC) 5.48 4.70-6.10 [place] [address]-04-12 12:58:00 Test Item Value Reference Range Interpretation Comments Hgb (test code = Hgb) 16.0 14.0-18.0 [place] [address]-04-12 12:58:00 Test Item Value Reference Range Interpretation Comments Hct (test code = Hct) 49.8 42.0-54.0 [place] [address]-04-12 12:58:00 Test Item Value Reference Range Interpretation Comments MCV (test code = MCV) 90.8 80.0-94.0 [place] [address]-04-12 12:58:00 Test Item Value Reference Range Interpretation Comments MCH (test code = MCH) 29.1 pg 27.0-31.0 [place] 122332-04-12 12:58:00 Test Item Value Reference Range Interpretation Comments MCHC (test code = MCHC) 32.1 32.0-36.0 [facility] [id number] 12:58:00 Test Item Value Reference Range Interpretation Comments RDW (test code = RDW) 15.5 11.5-14.5 [place] 122332-04-12 12:58:00 Test Item Value Reference Range Interpretation Comments Platelet (test code = Platelet) 312 133-450 [facility] [id number] 12:58:00 Test Item Value Reference Range Interpretation Comments MPV (test code = MPV) 8.3 7.4-10.4 [place] [address]-04-12 12:58:00 Test Item Value Reference Range Interpretation Comments PT (test code = PT) 12.9 s 12.0-14.7 [place] 122332-04-12 12:58:00 Test Item Value Reference Range Interpretation Comments INR (test code = INR) 0.98 1 0.85-1.17 [place] 122332-04-12 12:58:00 Test Item Value Reference Range Interpretation Comments PTT (test code = PTT) 27.3 s 22.9-35.8 [place] 122332-04-12 12:58:00 Test Item Value Reference Range Interpretation Comments Segs (test code = Segs) 71.2 45.0-75.0 [place] 122332-04-12 12:58:00 Test Item Value Reference Range Interpretation Comments Lymphocytes (test code = Lymphocytes) 21.1 20.0-40.0 [place] [address]-04-12 12:58:00 Test Item Value Reference Range Interpretation Comments Monocytes (test code = Monocytes) 6.8 2.0-12.0 [place] [address]-04-12 12:58:00 Test Item Value Reference Range Interpretation Comments Eosinophils (test code = 0.1 See_Comment [A utomated message] The Eosinophils) system which ge nerated this result tra nsmitted reference range : <=4.0. The reference r boubacar was not used to int erpret this result as normal/abnormal . [address]04-12 12:58:00 Test Item Value Reference Range Interpretation Comments Basophils (test code = 0.8 See_Comment [Aut omated message] The Basophils) system which ge nerated this result tra nsmitted reference range : <=1.0. The reference r boubacar was not used to int erpret this result as normal/abnormal . [facility] [id number] 12:58:00 Test Item Value Reference Range Interpretation Comments Neutrophils # (test code = Neutrophils 7.5 1.5-8.1 #) [facility] [id number] 12:58:00 Test Item Value Reference Range Interpretation Comments Lymphocytes # (test code = Lymphocytes 2.2 1.0-5.5 #) [facility] [id number] 12:58:00 Test Item Value Reference Range Interpretation Comments Monocytes # (test code 0.7 See_Comment [Aut omated message] The = Monocytes #) system which generated this result tra nsmitted reference range : <=0.8. The reference r boubacar was not used to int erpret this result as normal/abnormal . [facility] [id number] 12:58:00 Test Item Value Reference Range Interpretation Comments Basophils # (test code 0.1 See_Comment [Aut omated message] The = Basophils #) system which generated this result tra nsmitted reference range : <=0.2. The reference r boubacar was not used to int erpret this result as normal/abnormal . [facility]2022-04-12 11:59:00 Test Item Value Reference Range Interpretation Comments Tube Num CSF (test code = Tube Num CSF) 3 1 [facility]2022-04-12 11:59:00 Test Item Value Reference Range Interpretation Comments Color CSF (test code Colorless (10/24/21 6:59 = Color CSF) AM) [place] 316312-04-12 11:59:00 Test Item Value Reference Range Interpretation Comments Clarity CSF (test code = Clear (10/24/21 6:59 Clarity CSF) AM) [facility]2022-04-12 11:59:00 Test Item Value Reference Range Interpretation Comments Supernat CSF (test Colorless (10/24/21 6:59 code = Supernat CSF) AM) [facility]2022-04-12 11:59:00 Test Item Value Reference Range Interpretation Comments Nucleated Cells CSF 3 See_Comment [Automa lester message] The (test code = Nucleated syste m which generated Cells CSF) this result tra nsmitted reference range : <=53. The reference r boubacar was not used to int erpret this result as normal/abnormal . [facility]2022-04-12 11:59:00 Test Item Value Reference Range Interpretation Comments RBC CSF (test code = 64 See_Comment [Autom ated message] The RBC CSF) system which ge nerated this result transmit lester reference range : <=03. The reference range was not used to interpr et this result as dany l/abnormal. [facility]2022-04-12 11:59:00 Test Item Value Reference Range Interpretation Comments Comment CSF (test Differential not performed code = Comment CSF) on WBC count of less than 5. Cell counts performed on CSF greater than two hours after collection may not be patient financial representative due to cellular degradation. [facility]2022-04-12 11:59:00 Test Item Value Reference Range Interpretation Comments Glucose CSF (test code = Glucose CSF) 129 45-80 [facility]2022-04-12 11:59:00 Test Item Value Reference Range Interpretation Comments Protein CSF (test code = Protein CSF) 110 15-45 [facility] [id number] 11:59:00 Test Item Value Reference Range Interpretation Comments Gram Stain Report Gram Stain Performed By: (test code = Gram [facility] Stain Report) [facility] w/Gram [id number] 11:59:00 Test Item Value Reference Range Interpretation Comments Culture: CSF w/Gram 48 Hour Report - No Stain (test code = Growth, Holding Culture: CSF w/Gram Stain) [facility]2022-04-12 11:59:00 Test Item Value Reference Range Interpretation Comments Tube Num CSF (test code = Tube Num CSF) 3 1 [facility]2022-04-12 11:59:00 Test Item Value Reference Range Interpretation Comments Color CSF (test code Colorless (10/24/21 6:59 = Color CSF) AM) [facility]2022-04-12 11:59:00 Test Item Value Reference Range Interpretation Comments Clarity CSF (test code = Clear (10/24/21 6:59 Clarity CSF) AM) [facility]2022-04-12 11:59:00 Test Item Value Reference Range Interpretation Comments Supernat CSF (test Colorless (10/24/21 6:59 code = Supernat CSF) AM) [facility]2022-04-12 11:59:00 Test Item Value Reference Range Interpretation Comments Nucleated Cells CSF 3 See_Comment [Automa lester message] The (test code = Nucleated syste m which generated Cells CSF) this result tra nsmitted reference range : <=53. The reference r boubacar was not used to int erpret this result as normal/abnormal . [facility]2022-04-12 11:59:00 Test Item Value Reference Range Interpretation Comments RBC CSF (test code = 64 See_Comment [Autom ated message] The RBC CSF) system which ge nerated this result transmit lester reference range : <=03. The reference range was not used to interpr et this result as dany l/abnormal. [facility]2022-04-12 11:59:00 Test Item Value Reference Range Interpretation Comments Comment CSF (test Differential not performed code = Comment CSF) on WBC count of less than 5. Cell counts performed on CSF greater than two hours after collection may not be patient financial representative due to cellular degradation. [facility]2022-04-12 11:59:00 Test Item Value Reference Range Interpretation Comments Glucose CSF (test code = Glucose CSF) 129 45-80 [facility]2022-04-12 11:59:00 Test Item Value Reference Range Interpretation Comments Protein CSF (test code = Protein CSF) 110 15-45 [facility] St[facility] [id number] 11:59:00 Test Item Value Reference Range Interpretation Comments Gram Stain Report Gram Stain Performed By: (test code = Gram [facility] Stain Report) [facility] CSF w/Gram [id number] 11:59:00 Test Item Value Reference Range Interpretation Comments Culture: CSF w/Gram 48 Hour Report - No Stain (test code = Growth, Holding Culture: CSF w/Gram Stain) [facility]2022-04-12 11:59:00 Test Item Value Reference Range Interpretation Comments Tube Num CSF (test code = Tube Num CSF) 3 1 [facility]2022-04-12 11:59:00 Test Item Value Reference Range Interpretation Comments Color CSF (test code Colorless (10/24/21 6:59 = Color CSF) AM) [facility]2022-04-12 11:59:00 Test Item Value Reference Range Interpretation Comments Clarity CSF (test code = Clear (10/24/21 6:59 Clarity CSF) AM) [facility]2022-04-12 11:59:00 Test Item Value Reference Range Interpretation Comments Supernat CSF (test Colorless (10/24/21 6:59 code = Supernat CSF) AM) [facility]2022-04-12 11:59:00 Test Item Value Reference Range Interpretation Comments Nucleated Cells CSF 3 See_Comment [Automa lester message] The (test code = Nucleated syste m which generated Cells CSF) this result tra nsmitted reference range : <=53. The reference r boubacar was not used to int erpret this result as normal/abnormal . [facility]2022-04-12 11:59:00 Test Item Value Reference Range Interpretation Comments RBC CSF (test code = 64 See_Comment [Autom ated message] The RBC CSF) system which ge nerated this result transmit lester reference range : <=03. The reference range was not used to interpr et this result as dany l/abnormal. [facility]2022-04-12 11:59:00 Test Item Value Reference Range Interpretation Comments Comment CSF (test Differential not performed code = Comment CSF) on WBC count of less than 5. Cell counts performed on CSF greater than two hours after collection may not be patient financial representative due to cellular degradation. [facility]2022-04-12 11:59:00 Test Item Value Reference Range Interpretation Comments Glucose CSF (test code = Glucose CSF) 129 45-80 [facility]2022-04-12 11:59:00 Test Item Value Reference Range Interpretation Comments Protein CSF (test code = Protein CSF) 110 15-45 [facility] [id number] 11:59:00 Test Item Value Reference Range Interpretation Comments Gram Stain Report Gram Stain Performed By: (test code = Gram [facility] Stain Report) [facility] CSF w/Gram [id number] 11:59:00 Test Item Value Reference Range Interpretation Comments Culture: CSF w/Gram 48 Hour Report - No Stain (test code = Growth, Holding Culture: CSF w/Gram Stain) [facility]2022-04-12 11:59:00 Test Item Value Reference Range Interpretation Comments Tube Num CSF (test code = Tube Num CSF) 3 1 [facility]2022-04-12 11:59:00 Test Item Value Reference Range Interpretation Comments Color CSF (test code Colorless (10/24/21 6:59 = Color CSF) AM) [facility]2022-04-12 11:59:00 Test Item Value Reference Range Interpretation Comments Clarity CSF (test code = Clear (10/24/21 6:59 Clarity CSF) AM) [facility]2022-04-12 11:59:00 Test Item Value Reference Range Interpretation Comments Supernat CSF (test Colorless (10/24/21 6:59 code = Supernat CSF) AM) [facility]2022-04-12 11:59:00 Test Item Value Reference Range Interpretation Comments Nucleated Cells CSF 3 See_Comment [Automa lester message] The (test code = Nucleated syste m which generated Cells CSF) this result tra nsmitted reference range : <=53. The reference r boubacar was not used to int erpret this result as normal/abnormal . [facility]2022-04-12 11:59:00 Test Item Value Reference Range Interpretation Comments RBC CSF (test code = 64 See_Comment [Autom ated message] The RBC CSF) system which ge nerated this result transmit lester reference range : <=03. The reference range was not used to interpr et this result as dany l/abnormal. [facility]2022-04-12 11:59:00 Test Item Value Reference Range Interpretation Comments Comment CSF (test Differential not performed code = Comment CSF) on WBC count of less than 5. Cell counts performed on CSF greater than two hours after collection may not be patient financial representative due to cellular degradation. [facility]2022-04-12 11:59:00 Test Item Value Reference Range Interpretation Comments Glucose CSF (test code = Glucose CSF) 129 45-[address] [facility] [id number] 11:59:00 Test Item Value Reference Range Interpretation Comments Protein CSF (test code = Protein CSF) 110 15-45 [facility] [id number] 11:59:00 Test Item Value Reference Range Interpretation Comments Gram Stain Report Gram Stain Performed By: (test code = Gram [facility] Stain Report) [facility] CSF w/Gram [id number] 11:59:00 Test Item Value Reference Range Interpretation Comments Culture: CSF w/Gram 48 Hour Report - No Stain (test code = Growth, Holding Culture: CSF w/Gram Stain) [facility]2022-04-12 11:59:00 Test Item Value Reference Range Interpretation Comments Tube Num CSF (test code = Tube Num CSF) 3 1 [facility]2022-04-12 11:59:00 Test Item Value Reference Range Interpretation Comments Color CSF (test code Colorless (10/24/21 6:59 = Color CSF) AM) [facility]2022-04-12 11:59:00 Test Item Value Reference Range Interpretation Comments Clarity CSF (test code = Clear (10/24/21 6:59 Clarity CSF) AM) [facility]2022-04-12 11:59:00 Test Item Value Reference Range Interpretation Comments Supernat CSF (test Colorless (10/24/21 6:59 code = Supernat CSF) AM) [facility]2022-04-12 11:59:00 Test Item Value Reference Range Interpretation Comments Nucleated Cells CSF 3 See_Comment [Automa lester message] The (test code = Nucleated syste m which generated Cells CSF) this result tra nsmitted reference range : <=53. The reference r boubacar was not used to int erpret this result as normal/abnormal . [facility]2022-04-12 11:59:00 Test Item Value Reference Range Interpretation Comments RBC CSF (test code = 64 See_Comment [Autom ated message] The RBC CSF) system which ge nerated this result transmit lester reference range : <=03. The reference range was not used to interpr et this result as dany l/abnormal. [facility]2022-04-12 11:59:00 Test Item Value Reference Range Interpretation Comments Comment CSF (test Differential not performed code = Comment CSF) on WBC count of less than 5. Cell counts performed on CSF greater than two hours after collection may not be patient financial representative due to cellular degradation. [facility]2022-04-12 11:59:00 Test Item Value Reference Range Interpretation Comments Glucose CSF (test code = Glucose CSF) 129 45-[address] [facility] [id number] 11:59:00 Test Item Value Reference Range Interpretation Comments Protein CSF (test code = Protein CSF) 110 15-45 [facility] St[facility] [id number] 11:59:00 Test Item Value Reference Range Interpretation Comments Gram Stain Report Gram Stain Performed By: (test code = Gram [facility] Stain Report) [facility]/Gram [id number] 11:59:00 Test Item Value Reference Range Interpretation Comments Culture: CSF w/Gram 48 Hour Report - No Stain (test code = Growth, Holding Culture: CSF w/Gram Stain) [facility]2022-04-12 11:59:00 Test Item Value Reference Range Interpretation Comments Tube Num CSF (test code = Tube Num CSF) 3 1 [facility]2022-04-12 11:59:00 Test Item Value Reference Range Interpretation Comments Color CSF (test code Colorless (10/24/21 6:59 = Color CSF) AM) [facility]2022-04-12 11:59:00 Test Item Value Reference Range Interpretation Comments Clarity CSF (test code = Clear (10/24/21 6:59 Clarity CSF) AM) [facility]2022-04-12 11:59:00 Test Item Value Reference Range Interpretation Comments Supernat CSF (test Colorless (10/24/21 6:59 code = Supernat CSF) AM) [facility]2022-04-12 11:59:00 Test Item Value Reference Range Interpretation Comments Nucleated Cells CSF 3 See_Comment [Automa lester message] The (test code = Nucleated syste m which generated Cells CSF) this result tra nsmitted reference range : <=53. The reference r boubacar was not used to int erpret this result as normal/abnormal . [facility]2022-04-12 11:59:00 Test Item Value Reference Range Interpretation Comments RBC CSF (test code = 64 See_Comment [Autom ated message] The RBC CSF) system which ge nerated this result transmit lester reference range : <=03. The reference range was not used to interpr et this result as dany l/abnormal. [facility]2022-04-12 11:59:00 Test Item Value Reference Range Interpretation Comments Comment CSF (test Differential not performed code = Comment CSF) on WBC count of less than 5. Cell counts performed on CSF greater than two hours after collection may not be patient financial representative due to cellular degradation. [facility] [id number] 11:59:00 Test Item Value Reference Range Interpretation Comments Glucose CSF (test code = Glucose CSF) 129 45-80 [facility] [id number] 11:59:00 Test Item Value Reference Range Interpretation Comments Protein CSF (test code = Protein CSF) 110 15-45 [facility] St[facility] [id number] 11:59:00 Test Item Value Reference Range Interpretation Comments Gram Stain Report Gram Stain Performed By: (test code = Gram [facility] Stain Report) [facility] w/Gram [id number] 11:59:00 Test Item Value Reference Range Interpretation Comments Culture: CSF w/Gram 48 Hour Report - No Stain (test code = Growth, Holding Culture: CSF w/Gram Stain) [facility] [id number] 14:46:00 Test Item Value Reference Range Interpretation Comments Hgb A1C (test code = Hgb A1C) 5.6 [facility] [id number] 14:46:00 Test Item Value Reference Range Interpretation Comments Hgb A1C (test code = Hgb A1C) 5.6 [facility] [id number] 14:46:00 Test Item Value Reference Range Interpretation Comments Hgb A1C (test code = Hgb A1C) 5.6 [facility] [id number] 14:46:00 Test Item Value Reference Range Interpretation Comments Hgb A1C (test code = Hgb A1C) 5.6 [facility] [id number] 14:46:00 Test Item Value Reference Range Interpretation Comments Hgb A1C (test code = Hgb A1C) 5.6 [facility] [id number] 14:46:00 Test Item Value Reference Range Interpretation Comments Hgb A1C (test code = Hgb A1C) 5.6 [facility] [id number] 11:43:00 Test Item Value Reference Range Interpretation Comments Glucose Lvl (test code = Glucose Lvl) 418 70-99 [facility] [id number] 11:43:00 Test Item Value Reference Range Interpretation Comments BUN (test code = BUN) 22 7-22 [facility]2022-04-11 11:43:00 Test Item Value Reference Range Interpretation Comments Creatinine Lvl (test code = Creatinine 1.10 0.50-1.40 Lvl) [facility]2022-04-11 11:43:00 Test Item Value Reference Range Interpretation Comments Sodium Lvl (test code = Sodium Lvl) 138 135-145 [place] 872842-04-11 11:43:00 Test Item Value Reference Range Interpretation Comments Potassium Lvl (test code = Potassium 4.9 3.5-5.1 Lvl) [place] 872842-04-11 11:43:00 Test Item Value Reference Range Interpretation Comments Chloride Lvl (test code = Chloride Lvl) 113 95-109 [facility]2022-04-11 11:43:00 Test Item Value Reference Range Interpretation Comments CO2 (test code = CO2) 16 24-32 [place] 872842-04-11 11:43:00 Test Item Value Reference Range Interpretation Comments AGAP (test code = AGAP) 13.9 10.0-20.0 [facility]2022-04-11 11:43:00 Test Item Value Reference Range Interpretation Comments Calcium Lvl (test code = Calcium Lvl) 9.0 8.5-10.5 [facility]2022-04-11 11:43:00 Test Item Value Reference Range Interpretation Comments eGFR (test code = eGFR) 86 [facility] TylerKaxkinoTEKOEHKVGT0659-22-55 11:43:00 Test Item Value Reference Range Interpretation Comments WBC (test code = WBC) 10.2 3.7-10.4 [place] 122332-04-11 11:43:00 Test Item Value Reference Range Interpretation Comments RBC (test code = RBC) 5.46 4.70-6.10 [place] 122332-04-11 11:43:00 Test Item Value Reference Range Interpretation Comments Hgb (test code = Hgb) 16.3 14.0-18.0 [place] [address]-04-11 11:43:00 Test Item Value Reference Range Interpretation Comments Hct (test code = Hct) 50.0 42.0-54.0 [place] 122332-04-11 11:43:00 Test Item Value Reference Range Interpretation Comments MCV (test code = MCV) 91.4 80.0-94.0 [facility] [id number] 11:43:00 Test Item Value Reference Range Interpretation Comments MCH (test code = MCH) 29.9 pg 27.0-31.0 [facility] TylerNawvdihJSHZUBTWDH2835-18-98 11:43:00 Test Item Value Reference Range Interpretation Comments MCHC (test code = MCHC) 32.7 32.0-36.0 [facility] TylerXcdizfaGXMBLVUKKL2156-27-74 11:43:00 Test Item Value Reference Range Interpretation Comments RDW (test code = RDW) 15.7 11.5-14.5 [facility] TylerBqcmkvmRBXAHEQICO5610-71-07 11:43:00 Test Item Value Reference Range Interpretation Comments Platelet (test code = Platelet) 321 133-450 [facility] [id number] 11:43:00 Test Item Value Reference Range Interpretation Comments MPV (test code = MPV) 8.6 7.4-10.4 [facility] TylerOrrwuvjIGVNSJZDDR5401-43-11 11:43:00 Test Item Value Reference Range Interpretation Comments Segs (test code = Segs) 92.0 45.0-75.0 [facility] TylerWkdqxdrPVSCQIORDY0163-22-98 11:43:00 Test Item Value Reference Range Interpretation Comments Lymphocytes (test code = Lymphocytes) 5.2 20.0-40.0 [facility] TylerGflaejiRIQATLLVXU4207-31-92 11:43:00 Test Item Value Reference Range Interpretation Comments Monocytes (test code = Monocytes) 1.6 2.0-12.0 [facility] TylerRpggzblEAQQEAOAED2107-12-06 11:43:00 Test Item Value Reference Range Interpretation Comments Basophils (test code = 1.2 See_Comment [Aut omated message] The Basophils) system which ge nerated this result tra nsmitted reference range : <=1.0. The reference r buobacar was not used to int erpret this result as normal/abnormal . [facility] TylerFlpcmlcBFOUHPJHOC1709-83-60 11:43:00 Test Item Value Reference Range Interpretation Comments Neutrophils # (test code = Neutrophils 9.4 1.5-8.1 #) [facility] TylerTzwmjmpFOUGMAFVBS2714-57-67 11:43:00 Test Item Value Reference Range Interpretation Comments Lymphocytes # (test code = Lymphocytes 0.5 1.0-5.5 #) [place] 122332-04-11 11:43:00 Test Item Value Reference Range Interpretation Comments Monocytes # (test code 0.2 See_Comment [Aut omated message] The = Monocytes #) system which generated this result tra nsmitted reference range : <=0.8. The reference r boubacar was not used to int erpret this result as normal/abnormal . [place] 122332-04-11 11:43:00 Test Item Value Reference Range Interpretation Comments Basophils # (test code 0.1 See_Comment [Aut omated message] The = Basophils #) system which generated this result tra nsmitted reference range : <=0.2. The reference r boubacar was not used to int erpret this result as normal/abnormal . [facility]2022-04-11 11:43:00 Test Item Value Reference Range Interpretation Comments Glucose Lvl (test code = Glucose Lvl) 418 70-99 [facility]2022-04-11 11:43:00 Test Item Value Reference Range Interpretation Comments BUN (test code = BUN) 22 7-22 [place] 872842-04-11 11:43:00 Test Item Value Reference Range Interpretation Comments Creatinine Lvl (test code = Creatinine 1.10 0.50-1.40 Lvl) [facility]2022-04-11 11:43:00 Test Item Value Reference Range Interpretation Comments Sodium Lvl (test code = Sodium Lvl) 138 135-145 [place] 872842-04-11 11:43:00 Test Item Value Reference Range Interpretation Comments Potassium Lvl (test code = Potassium 4.9 3.5-5.1 Lvl) [place] 872842-04-11 11:43:00 Test Item Value Reference Range Interpretation Comments Chloride Lvl (test code = Chloride Lvl) 113 95-109 [facility]2022-04-11 11:43:00 Test Item Value Reference Range Interpretation Comments CO2 (test code = CO2) 16 24-32 [place] 872842-04-11 11:43:00 Test Item Value Reference Range Interpretation Comments AGAP (test code = AGAP) 13.9 10.0-20.0 [place] 872842-04-11 11:43:00 Test Item Value Reference Range Interpretation Comments Calcium Lvl (test code = Calcium Lvl) 9.0 8.5-10.5 [facility] CampusCHEM [id number] 11:43:00 Test Item Value Reference Range Interpretation Comments eGFR (test code = eGFR) 86 [facility] TylerAznrzliNHKHMKFXIC6670-87-06 11:43:00 Test Item Value Reference Range Interpretation Comments WBC (test code = WBC) 10.2 3.7-10.4 [facility] TylerCfnrbhqCXXDTIDVOC2812-00-45 11:43:00 Test Item Value Reference Range Interpretation Comments RBC (test code = RBC) 5.46 4.70-6.10 [facility] [id number] 11:43:00 Test Item Value Reference Range Interpretation Comments Hgb (test code = Hgb) 16.3 14.0-18.0 [facility] TylerVdmxhfnETFUCMUGBE8451-74-69 11:43:00 Test Item Value Reference Range Interpretation Comments Hct (test code = Hct) 50.0 42.0-54.0 [facility] TylerXloyqsiHYCXXIGBHS9816-45-61 11:43:00 Test Item Value Reference Range Interpretation Comments MCV (test code = MCV) 91.4 80.0-94.0 [facility]FJSXMQLISY9722-[facility]-83 11:43:00 Test Item Value Reference Range Interpretation Comments MCH (test code = MCH) 29.9 pg 27.0-31.0 [facility] TylerDitkabsNKZGKVWOGF6362-78-32 11:43:00 Test Item Value Reference Range Interpretation Comments MCHC (test code = MCHC) 32.7 32.0-36.0 [facility] TylerCdrgdrfFADUIAVXND5494-88-19 11:43:00 Test Item Value Reference Range Interpretation Comments RDW (test code = RDW) 15.7 11.5-14.5 [facility] TylerXozoiykMSOSMEDFPS0547-49-63 11:43:00 Test Item Value Reference Range Interpretation Comments Platelet (test code = Platelet) 321 133-450 [facility] TylerEaultwmACNDWWXQUH0117-72-63 11:43:00 Test Item Value Reference Range Interpretation Comments MPV (test code = MPV) 8.6 7.4-10.4 [facility] TylerJeyyciiKRNCLVBFGG9091-23-33 11:43:00 Test Item Value Reference Range Interpretation Comments Segs (test code = Segs) 92.0 45.0-75.0 [place] [address]-04-11 11:43:00 Test Item Value Reference Range Interpretation Comments Lymphocytes (test code = Lymphocytes) 5.2 20.0-40.0 [place] 122332-04-11 11:43:00 Test Item Value Reference Range Interpretation Comments Monocytes (test code = Monocytes) 1.6 2.0-12.0 [place] 122332-04-11 11:43:00 Test Item Value Reference Range Interpretation Comments Basophils (test code = 1.2 See_Comment [Aut omated message] The Basophils) system which ge nerated this result tra nsmitted reference range : <=1.0. The reference r boubacar was not used to int erpret this result as normal/abnormal . [place] 122332-04-11 11:43:00 Test Item Value Reference Range Interpretation Comments Neutrophils # (test code = Neutrophils 9.4 1.5-8.1 #) [place] 122332-04-11 11:43:00 Test Item Value Reference Range Interpretation Comments Lymphocytes # (test code = Lymphocytes 0.5 1.0-5.5 #) [place] [address]-04-11 11:43:00 Test Item Value Reference Range Interpretation Comments Monocytes # (test code 0.2 See_Comment [Aut omated message] The = Monocytes #) system which generated this result tra nsmitted reference range : <=0.8. The reference r boubacar was not used to int erpret this result as normal/abnormal . [place] 122332-04-11 11:43:00 Test Item Value Reference Range Interpretation Comments Basophils # (test code 0.1 See_Comment [Aut omated message] The = Basophils #) system which generated this result tra nsmitted reference range : <=0.2. The reference r boubacar was not used to int erpret this result as normal/abnormal . [place] 872842-04-11 11:43:00 Test Item Value Reference Range Interpretation Comments Glucose Lvl (test code = Glucose Lvl) 418 70-99 [place] 872842-04-11 11:43:00 Test Item Value Reference Range Interpretation Comments BUN (test code = BUN) 22 7-22 [place] 872842-04-11 11:43:00 Test Item Value Reference Range Interpretation Comments Creatinine Lvl (test code = Creatinine 1.10 0.50-1.40 Lvl) [facility]2022-04-11 11:43:00 Test Item Value Reference Range Interpretation Comments Sodium Lvl (test code = Sodium Lvl) 138 135-145 [facility]2022-04-11 11:43:00 Test Item Value Reference Range Interpretation Comments Potassium Lvl (test code = Potassium 4.9 3.5-5.1 Lvl) [facility]2022-04-11 11:43:00 Test Item Value Reference Range Interpretation Comments Chloride Lvl (test code = Chloride Lvl) 113 95-109 [facility]2022-04-11 11:43:00 Test Item Value Reference Range Interpretation Comments CO2 (test code = CO2) 16 24-32 [place] 872842-04-11 11:43:00 Test Item Value Reference Range Interpretation Comments AGAP (test code = AGAP) 13.9 10.0-20.0 [facility]2022-04-11 11:43:00 Test Item Value Reference Range Interpretation Comments Calcium Lvl (test code = Calcium Lvl) 9.0 8.5-10.5 [facility]2022-04-11 11:43:00 Test Item Value Reference Range Interpretation Comments eGFR (test code = eGFR) 86 [facility] TylerLyghzqvLAMLHIIDKJ6540-43-52 11:43:00 Test Item Value Reference Range Interpretation Comments WBC (test code = WBC) 10.2 3.7-10.4 [place] 122332-04-11 11:43:00 Test Item Value Reference Range Interpretation Comments RBC (test code = RBC) 5.46 4.70-6.10 [place] 122332-04-11 11:43:00 Test Item Value Reference Range Interpretation Comments Hgb (test code = Hgb) 16.3 14.0-18.0 [place] 122332-04-11 11:43:00 Test Item Value Reference Range Interpretation Comments Hct (test code = Hct) 50.0 42.0-54.0 [place] 122332-04-11 11:43:00 Test Item Value Reference Range Interpretation Comments MCV (test code = MCV) 91.4 80.0-94.0 [facility] TylerYtmywgnEWBJIJMCNF2627-81-30 11:43:00 Test Item Value Reference Range Interpretation Comments MCH (test code = MCH) 29.9 pg 27.0-31.0 [facility] TylerZctafeqSKBZFWRQQL3881-45-92 11:43:00 Test Item Value Reference Range Interpretation Comments MCHC (test code = MCHC) 32.7 32.0-36.0 [facility] TylerTdvgcqbAHMFEYLUWD2344-70-84 11:43:00 Test Item Value Reference Range Interpretation Comments RDW (test code = RDW) 15.7 11.5-14.5 [facility] TylerSecunceXUFFYQNIAF5016-19-11 11:43:00 Test Item Value Reference Range Interpretation Comments Platelet (test code = Platelet) 321 133-450 [facility] TylerIeywnfbFDNWECCQFY3723-57-62 11:43:00 Test Item Value Reference Range Interpretation Comments MPV (test code = MPV) 8.6 7.4-10.4 [facility] TylerNplooilJXAWOIGUOT0737-76-05 11:43:00 Test Item Value Reference Range Interpretation Comments Segs (test code = Segs) 92.0 45.0-75.0 [facility] TylerTomylmzQJGECRXZGV7971-62-82 11:43:00 Test Item Value Reference Range Interpretation Comments Lymphocytes (test code = Lymphocytes) 5.2 20.0-40.0 [facility] TylerNigusqmJPYPFFIXIJ6589-68-62 11:43:00 Test Item Value Reference Range Interpretation Comments Monocytes (test code = Monocytes) 1.6 2.0-12.0 [facility] TylerBndyjghODPOQRCDOG3631-67-83 11:43:00 Test Item Value Reference Range Interpretation Comments Basophils (test code = 1.2 See_Comment [Aut omated message] The Basophils) system which ge nerated this result tra nsmitted reference range : <=1.0. The reference r boubacar was not used to int erpret this result as normal/abnormal . [facility] TylerGadnlawOCOTKHWHDO4934-25-50 11:43:00 Test Item Value Reference Range Interpretation Comments Neutrophils # (test code = Neutrophils 9.4 1.5-8.1 #) [facility] TylerAbematqPOHQEIZFZM8127-84-70 11:43:00 Test Item Value Reference Range Interpretation Comments Lymphocytes # (test code = Lymphocytes 0.5 1.0-5.5 #) [facility] TylerMvcsegzIBJWCPHNJS5057-96-06 11:43:00 Test Item Value Reference Range Interpretation Comments Monocytes # (test code 0.2 See_Comment [Aut omated message] The = Monocytes #) system which generated this result tra nsmitted reference range : <=0.8. The reference r boubacar was not used to int erpret this result as normal/abnormal . [facility] TylerJrhyuspIOXASHQZDK1228-51-97 11:43:00 Test Item Value Reference Range Interpretation Comments Basophils # (test code 0.1 See_Comment [Aut omated message] The = Basophils #) system which generated this result tra nsmitted reference range : <=0.2. The reference r boubacar was not used to int erpret this result as normal/abnormal . [facility] CampusComAb[facility] [id number] 11:43:00 Test Item Value Reference Range Interpretation Comments Glucose Lvl (test code = Glucose Lvl) 418 70-99 [facility] CampusComAb[facility] [id number] 11:43:00 Test Item Value Reference Range Interpretation Comments BUN (test code = BUN) 22 7-22 [facility]ComAb[facility] [id number] 11:43:00 Test Item Value Reference Range Interpretation Comments Creatinine Lvl (test code = Creatinine 1.10 0.50-1.40 Lvl) [facility] SLPUW0695-20-04 11:43:00 Test Item Value Reference Range Interpretation Comments Sodium Lvl (test code = Sodium Lvl) 138 135-145 [facility]2022-04-11 11:43:00 Test Item Value Reference Range Interpretation Comments Potassium Lvl (test code = Potassium 4.9 3.5-5.1 Lvl) [facility]ComAb[facility] [id number] 11:43:00 Test Item Value Reference Range Interpretation Comments Chloride Lvl (test code = Chloride Lvl) 113 95-109 [facility] [id number] 11:43:00 Test Item Value Reference Range Interpretation Comments CO2 (test code = CO2) 16 24-32 [facility]Com[facility] [id number] 11:43:00 Test Item Value Reference Range Interpretation Comments AGAP (test code = AGAP) 13.9 10.0-20.0 [facility] [id number] 11:43:00 Test Item Value Reference Range Interpretation Comments Calcium Lvl (test code = Calcium Lvl) 9.0 8.5-10.5 [facility]2022-04-11 11:43:00 Test Item Value Reference Range Interpretation Comments eGFR (test code = eGFR) 86 [facility] TylerDierfwvCVVKIVYHUQ7247-01-72 11:43:00 Test Item Value Reference Range Interpretation Comments WBC (test code = WBC) 10.2 3.7-10.4 [facility] TylerXailshgPIXPCEGUIK8920-71-13 11:43:00 Test Item Value Reference Range Interpretation Comments RBC (test code = RBC) 5.46 4.70-6.10 [facility] TylerXerypxjANLHMAQPXQ8775-27-61 11:43:00 Test Item Value Reference Range Interpretation Comments Hgb (test code = Hgb) 16.3 14.0-18.0 [facility] TylerJyrbmxoCRGVIVNLUB8451-90-57 11:43:00 Test Item Value Reference Range Interpretation Comments Hct (test code = Hct) 50.0 42.0-54.0 [facility] TylerZhiazynYZAJQQBRNK5848-67-31 11:43:00 Test Item Value Reference Range Interpretation Comments MCV (test code = MCV) 91.4 80.0-94.0 [facility] TylerJihakvwSMJXORLVIZ5181-15-99 11:43:00 Test Item Value Reference Range Interpretation Comments MCH (test code = MCH) 29.9 pg 27.0-31.0 [facility] TylerZwbybrcNMUCRVMTWK0988-49-27 11:43:00 Test Item Value Reference Range Interpretation Comments MCHC (test code = MCHC) 32.7 32.0-36.0 [facility] TylerRhpllsyQSMPPSPETV5044-81-10 11:43:00 Test Item Value Reference Range Interpretation Comments RDW (test code = RDW) 15.7 11.5-14.5 [facility] TylerWvrbhadYOBZMOIPMZ7247-02-06 11:43:00 Test Item Value Reference Range Interpretation Comments Platelet (test code = Platelet) 321 133-450 [facility] TylerHtlswsdHVCEOZWKEY9307-36-22 11:43:00 Test Item Value Reference Range Interpretation Comments MPV (test code = MPV) 8.6 7.4-10.4 [facility] TylerHohvpzwTPGPJQVBOD1341-57-60 11:43:00 Test Item Value Reference Range Interpretation Comments Segs (test code = Segs) 92.0 45.0-75.0 [facility] TylerIdleqrtZFSEWJGBLO4335-74-85 11:43:00 Test Item Value Reference Range Interpretation Comments Lymphocytes (test code = Lymphocytes) 5.2 20.0-40.0 [place] 122332-04-11 11:43:00 Test Item Value Reference Range Interpretation Comments Monocytes (test code = Monocytes) 1.6 2.0-12.0 [place] 122332-04-11 11:43:00 Test Item Value Reference Range Interpretation Comments Basophils (test code = 1.2 See_Comment [Aut omated message] The Basophils) system which ge nerated this result tra nsmitted reference range : <=1.0. The reference r boubacar was not used to int erpret this result as normal/abnormal . [place] 122332-04-11 11:43:00 Test Item Value Reference Range Interpretation Comments Neutrophils # (test code = Neutrophils 9.4 1.5-8.1 #) [place] [address]-04-11 11:43:00 Test Item Value Reference Range Interpretation Comments Lymphocytes # (test code = Lymphocytes 0.5 1.0-5.5 #) [place] 122332-04-11 11:43:00 Test Item Value Reference Range Interpretation Comments Monocytes # (test code 0.2 See_Comment [Aut omated message] The = Monocytes #) system which generated this result tra nsmitted reference range : <=0.8. The reference r boubacar was not used to int erpret this result as normal/abnormal . [place] 122332-04-11 11:43:00 Test Item Value Reference Range Interpretation Comments Basophils # (test code 0.1 See_Comment [Aut omated message] The = Basophils #) system which generated this result tra nsmitted reference range : <=0.2. The reference r boubacar was not used to int erpret this result as normal/abnormal . [place] 872842-04-11 11:43:00 Test Item Value Reference Range Interpretation Comments Glucose Lvl (test code = Glucose Lvl) 418 70-99 [place] 872842-04-11 11:43:00 Test Item Value Reference Range Interpretation Comments BUN (test code = BUN) 22 7-22 [place] 872842-04-11 11:43:00 Test Item Value Reference Range Interpretation Comments Creatinine Lvl (test code = Creatinine 1.10 0.50-1.40 Lvl) [facility]2022-04-11 11:43:00 Test Item Value Reference Range Interpretation Comments Sodium Lvl (test code = Sodium Lvl) 138 135-145 [facility]2022-04-11 11:43:00 Test Item Value Reference Range Interpretation Comments Potassium Lvl (test code = Potassium 4.9 3.5-5.1 Lvl) [facility]2022-04-11 11:43:00 Test Item Value Reference Range Interpretation Comments Chloride Lvl (test code = Chloride Lvl) 113 95-109 [place] 872842-04-11 11:43:00 Test Item Value Reference Range Interpretation Comments CO2 (test code = CO2) 16 24-32 [place] 872842-04-11 11:43:00 Test Item Value Reference Range Interpretation Comments AGAP (test code = AGAP) 13.9 10.0-20.0 [place] 872842-04-11 11:43:00 Test Item Value Reference Range Interpretation Comments Calcium Lvl (test code = Calcium Lvl) 9.0 8.5-10.5 [facility]2022-04-11 11:43:00 Test Item Value Reference Range Interpretation Comments eGFR (test code = eGFR) 86 [facility] TylerNuynzvvGODCIPAJMI2704-96-76 11:43:00 Test Item Value Reference Range Interpretation Comments WBC (test code = WBC) 10.2 3.7-10.4 [place] 122332-04-11 11:43:00 Test Item Value Reference Range Interpretation Comments RBC (test code = RBC) 5.46 4.70-6.10 [place] 122332-04-11 11:43:00 Test Item Value Reference Range Interpretation Comments Hgb (test code = Hgb) 16.3 14.0-18.0 [place] [address]-04-11 11:43:00 Test Item Value Reference Range Interpretation Comments Hct (test code = Hct) 50.0 42.0-54.0 [place] 122332-04-11 11:43:00 Test Item Value Reference Range Interpretation Comments MCV (test code = MCV) 91.4 80.0-94.0 [place] 122332-04-11 11:43:00 Test Item Value Reference Range Interpretation Comments MCH (test code = MCH) 29.9 pg 27.0-31.0 [facility] TylerBhzowefARSYIZOLXB2997-74-53 11:43:00 Test Item Value Reference Range Interpretation Comments MCHC (test code = MCHC) 32.7 32.0-36.0 [facility] TylerMlfqtwqSFFPVVXSWR2441-91-24 11:43:00 Test Item Value Reference Range Interpretation Comments RDW (test code = RDW) 15.7 11.5-14.5 [facility] TylerYvlqjzoQLJAHKEHJY4827-50-99 11:43:00 Test Item Value Reference Range Interpretation Comments Platelet (test code = Platelet) 321 133-450 [facility] TylerFpkngkqTWICNNLNXB7505-24-44 11:43:00 Test Item Value Reference Range Interpretation Comments MPV (test code = MPV) 8.6 7.4-10.4 [facility] TylerSsmnovnCVFUISOWIL1040-47-07 11:43:00 Test Item Value Reference Range Interpretation Comments Segs (test code = Segs) 92.0 45.0-75.0 [facility] TylerDqhltzpURBXRDUGTA0662-85-98 11:43:00 Test Item Value Reference Range Interpretation Comments Lymphocytes (test code = Lymphocytes) 5.2 20.0-40.0 [facility] TylerIlvnhwxWCERZMSSIL9971-80-81 11:43:00 Test Item Value Reference Range Interpretation Comments Monocytes (test code = Monocytes) 1.6 2.0-12.0 [facility] TylerMcjcqjaMAGSERVDLO7281-12-98 11:43:00 Test Item Value Reference Range Interpretation Comments Basophils (test code = 1.2 See_Comment [Aut omated message] The Basophils) system which ge nerated this result tra nsmitted reference range : <=1.0. The reference r boubacar was not used to int erpret this result as normal/abnormal . [facility] TylerAxehexnQGFWSRFNCZ9415-76-19 11:43:00 Test Item Value Reference Range Interpretation Comments Neutrophils # (test code = Neutrophils 9.4 1.5-8.1 #) [facility] TylerHeqbbdmENRJRKDSJR8684-26-55 11:43:00 Test Item Value Reference Range Interpretation Comments Lymphocytes # (test code = Lymphocytes 0.5 1.0-5.5 #) [facility] TylerZrambxtVYEVTEXGBV1514-57-49 11:43:00 Test Item Value Reference Range Interpretation Comments Monocytes # (test code 0.2 See_Comment [Aut omated message] The = Monocytes #) system which generated this result tra nsmitted reference range : <=0.8. The reference r boubacar was not used to int erpret this result as normal/abnormal . [facility] TylerCehfhsgXOOUYCIDSO1336-05-14 11:43:00 Test Item Value Reference Range Interpretation Comments Basophils # (test code 0.1 See_Comment [Aut omated message] The = Basophils #) system which generated this result tra nsmitted reference range : <=0.2. The reference r boubacar was not used to int erpret this result as normal/abnormal . [facility]2022-04-11 11:43:00 Test Item Value Reference Range Interpretation Comments Glucose Lvl (test code = Glucose Lvl) 418 70-99 [facility]2022-04-11 11:43:00 Test Item Value Reference Range Interpretation Comments BUN (test code = BUN) 22 7-22 [facility]2022-04-11 11:43:00 Test Item Value Reference Range Interpretation Comments Creatinine Lvl (test code = Creatinine 1.10 0.50-1.40 Lvl) [facility]2022-04-11 11:43:00 Test Item Value Reference Range Interpretation Comments Sodium Lvl (test code = Sodium Lvl) 138 135-145 [facility]2022-04-11 11:43:00 Test Item Value Reference Range Interpretation Comments Potassium Lvl (test code = Potassium 4.9 3.5-5.1 Lvl) [facility]2022-04-11 11:43:00 Test Item Value Reference Range Interpretation Comments Chloride Lvl (test code = Chloride Lvl) 113 95-109 [facility]2022-04-11 11:43:00 Test Item Value Reference Range Interpretation Comments CO2 (test code = CO2) 16 24-32 [facility] [id number] 11:43:00 Test Item Value Reference Range Interpretation Comments AGAP (test code = AGAP) 13.9 10.0-20.0 [place] 872842-04-11 11:43:00 Test Item Value Reference Range Interpretation Comments Calcium Lvl (test code = Calcium Lvl) 9.0 8.5-10.5 [facility] CampusComAb[facility] GBPNA1193-00-12 11:43:00 Test Item Value Reference Range Interpretation Comments eGFR (test code = eGFR) 86 [facility] TylerInclfneTCDABONZES7870-87-34 11:43:00 Test Item Value Reference Range Interpretation Comments WBC (test code = WBC) 10.2 3.7-10.4 [facility] TylerOpjyeyxZMANNBXECN6077-92-46 11:43:00 Test Item Value Reference Range Interpretation Comments RBC (test code = RBC) 5.46 4.70-6.10 [facility] TylerNalieeiTOZABZXKAK5036-37-64 11:43:00 Test Item Value Reference Range Interpretation Comments Hgb (test code = Hgb) 16.3 14.0-18.0 [facility] TylerOpmdljzQOAXWFWBGP1402-66-48 11:43:00 Test Item Value Reference Range Interpretation Comments Hct (test code = Hct) 50.0 42.0-54.0 [facility] TylerSppcvzoLKXWZBTYRS0405-16-72 11:43:00 Test Item Value Reference Range Interpretation Comments MCV (test code = MCV) 91.4 80.0-94.0 [facility] TylerFycggapBZKZRTHRQH3401-76-84 11:43:00 Test Item Value Reference Range Interpretation Comments MCH (test code = MCH) 29.9 pg 27.0-31.0 [facility] TylerHpklemnINKYREFICN9699-57-39 11:43:00 Test Item Value Reference Range Interpretation Comments MCHC (test code = MCHC) 32.7 32.0-36.0 [facility] TylerCxbckceTMYRTZKEAG7977-53-53 11:43:00 Test Item Value Reference Range Interpretation Comments RDW (test code = RDW) 15.7 11.5-14.5 [facility] TylerXvlzjxaXYQSOQAXTH0870-10-35 11:43:00 Test Item Value Reference Range Interpretation Comments Platelet (test code = Platelet) 321 133-450 [facility] TylerVyspkbfTWMOGOBLLX1715-16-89 11:43:00 Test Item Value Reference Range Interpretation Comments MPV (test code = MPV) 8.6 7.4-10.4 [facility] TylerKanlkeuBNDBHAFNLL3315-48-45 11:43:00 Test Item Value Reference Range Interpretation Comments Segs (test code = Segs) 92.0 45.0-75.0 [facility] TylerUvmkoxeOHTKMXZGNT0517-90-10 11:43:00 Test Item Value Reference Range Interpretation Comments Lymphocytes (test code = Lymphocytes) 5.2 20.0-40.0 [place] 122332-04-11 11:43:00 Test Item Value Reference Range Interpretation Comments Monocytes (test code = Monocytes) 1.6 2.0-12.0 [place] 122332-04-11 11:43:00 Test Item Value Reference Range Interpretation Comments Basophils (test code = 1.2 See_Comment [Aut omated message] The Basophils) system which ge nerated this result tra nsmitted reference range : <=1.0. The reference r boubacar was not used to int erpret this result as normal/abnormal . [place] 122332-04-11 11:43:00 Test Item Value Reference Range Interpretation Comments Neutrophils # (test code = Neutrophils 9.4 1.5-8.1 #) [place] 122332-04-11 11:43:00 Test Item Value Reference Range Interpretation Comments Lymphocytes # (test code = Lymphocytes 0.5 1.0-5.5 #) [place] 122332-04-11 11:43:00 Test Item Value Reference Range Interpretation Comments Monocytes # (test code 0.2 See_Comment [Aut omated message] The = Monocytes #) system which generated this result tra nsmitted reference range : <=0.8. The reference r boubacar was not used to int erpret this result as normal/abnormal . [place] 122332-04-11 11:43:00 Test Item Value Reference Range Interpretation Comments Basophils # (test code 0.1 See_Comment [Aut omated message] The = Basophils #) system which generated this result tra nsmitted reference range : <=0.2. The reference r boubacar was not used to int erpret this result as normal/abnormal . [facility]JP[facility]KLWP2844[facility] 09:18:00 Test Item Value Reference Range Interpretation Comments Coronavirus (COVID-19) Not Detected (10/21/21 OUMOU (test code = 4:18 AM) Coronavirus (COVID-19) OUMOU) [place] [address]-04-09 09:18:00 Test Item Value Reference Range Interpretation Comments Coronavirus (COVID-19) Not Detected (10/21/21 OUMOU (test code = 4:18 AM) Coronavirus (COVID-19) OUMOU) [place] 864232-04-09 09:18:00 Test Item Value Reference Range Interpretation Comments Coronavirus (COVID-19) Not Detected (10/21/21 OUMOU (test code = 4:18 AM) Coronavirus (COVID-19) OUMOU) [facility]viewShgarmnHDRTKTRCLN8070-22-95 09:18:00 Test Item Value Reference Range Interpretation Comments Coronavirus (COVID-19) Not Detected (10/21/21 OUMOU (test code = 4:18 AM) Coronavirus (COVID-19) OUMOU) [facility]viewBnuwruiODKCHGNZFH8686-57-32 09:18:00 Test Item Value Reference Range Interpretation Comments Coronavirus (COVID-19) Not Detected (10/21/21 OUMOU (test code = 4:18 AM) Coronavirus (COVID-19) OUMOU) [facility]viewNxteblpXGEKQJRMKB2047-74-95 09:18:00 Test Item Value Reference Range Interpretation Comments Coronavirus (COVID-19) Not Detected (10/21/21 OUMOU (test code = 4:18 AM) Coronavirus (COVID-19) OUMOU) [facility]:SUSC:PT:ISOLATE:ORDQN:[id number] 08:19:00 Test Item Value Reference Range Interpretation Comments Culture: Urine (test >100,000 CFU/mL code = Culture: Providencia stuartii Urine) [facility]:SUSC:PT:ISOLATE:ORDQN:[id number] 08:19:00 Test Item Value Reference Range Interpretation Comments Providencia stuartii Providencia stuartii (test code = Providencia stuartii) [facility] AND [id number] 08:19:00 Test Item Value Reference Range Interpretation Comments UA Color (test code = Yellow *NA*(10/21/21 3:19 UA Color) AM) [facility] AND [id number] 08:19:00 Test Item Value Reference Range Interpretation Comments UA Turbidity (test code Marked *ABN*(10/21/21 = UA Turbidity) 3:19 AM) [facility] [id number] 08:19:00 Test Item Value Reference Range Interpretation Comments UA Spec Grav (test code = UA Spec 1.013 1 Grav) [facility] AND [id number] 08:19:00 Test Item Value Reference Range Interpretation Comments UA pH (test code = UA pH) 5.0 1 5.0-8.0 [facility] AND [id number] 08:19:00 Test Item Value Reference Range Interpretation Comments UA Protein (test code = UA Negative mg/dL Protein) [facility] AND [id number] 08:19:00 Test Item Value Reference Range Interpretation Comments UA Glucose (test code = UA Negative mg/dL Glucose) [facility] AND [id number] 08:19:00 Test Item Value Reference Range Interpretation Comments UA Ketones (test code = UA Negative mg/dL Ketones) [facility] AND [id number] 08:19:00 Test Item Value Reference Range Interpretation Comments UA Bili (test code = Negative *NA*(10/21/21 UA Bili) 3:19 AM) [facility] AND [id number] 08:19:00 Test Item Value Reference Range Interpretation Comments UA Blood (test code = Small *ABN*(10/21/21 UA Blood) 3:19 AM) [facility] AND [id number] 08:19:00 Test Item Value Reference Range Interpretation Comments UA Urobilinogen (test code = UA no gt 0.1-1.0 Urobilinogen) [facility] AND [id number] 08:19:00 Test Item Value Reference Range Interpretation Comments UA Nitrite (test code Positive *ABN*(10/21/21 = UA Nitrite) 3:19 AM) [facility] AND [id number] 08:19:00 Test Item Value Reference Range Interpretation Comments UA Leuk Est (test code Large *ABN*(10/21/21 3:19 = UA Leuk Est) AM) [facility] AND [id number] 08:19:00 Test Item Value Reference Range Interpretation Comments UA WBC (test code = no gt See_Comment [Automa lester message] The UA WBC) system which ge nerated this result transmit lester reference range : <=5. The reference range was not used to interpr et this result as dany l/abnormal. [facility] AND [id number] 08:19:00 Test Item Value Reference Range Interpretation Comments UA RBC (test code = 8 See_Comment [Automa lester message] The UA RBC) system which ge nerated this result transmit lester reference range : <=2. The reference range was not used to interpr et this result as dany l/abnormal. [facility] [id number] 08:19:00 Test Item Value Reference Range Interpretation Comments UA Bacteria (test code = UA Occasional /HPF Bacteria) [facility] [id number] 08:19:00 Test Item Value Reference Range Interpretation Comments UA Mucus (test code = UA Mucus) Few /LPF [facility] [id number] 08:19:00 Test Item Value Reference Range Interpretation Comments UA Amorph Christi (test code = Occasional /HPF UA Amorph Christi) [facility] [id number] 08:19:00 Test Item Value Reference Range Interpretation Comments UA Sq Epi (test code = UA Sq Epi) None Seen [facility]annCulture: [id number] 08:19:00 Test Item Value Reference Range Interpretation Comments Culture: Urine (test Holding For Better code = Culture: Urine) [facility] CenterphilipCEFTRIAXONE:SUSC:PT:ISOLATE:ORDQN:[id number] 08:19:00 Test Item Value Reference Range Interpretation Comments Culture: Urine (test >100,000 CFU/mL code = Culture: Providencia stuartii Urine) [facility]annCEFTRIAXONE:SUSC:PT:ISOLATE:ORDQN:[id number] 08:19:00 Test Item Value Reference Range Interpretation Comments Providencia stuartii Providencia stuartii (test code = Providencia stuartii) [facility] [id number] 08:19:00 Test Item Value Reference Range Interpretation Comments UA Color (test code = Yellow *NA*(10/21/21 3:19 UA Color) AM) [facility]annCEFTRIAXONE:SUSC:PT:ISOLATE:ORDQN:[id number] 08:19:00 Test Item Value Reference Range Interpretation Comments Culture: Urine (test >100,000 CFU/mL code = Culture: Providencia stuartii Urine) [facility] [id number] 08:19:00 Test Item Value Reference Range Interpretation Comments UA Turbidity (test code Marked *ABN*(10/21/21 = UA Turbidity) 3:19 AM) [facility] HospitalWesRIAXONE:SUSC:PT:ISOLATE:ORDQN:[id number] 08:19:00 Test Item Value Reference Range Interpretation Comments Providencia stuartii Providencia stuartii (test code = Providencia stuartii) [facility] [id number] 08:19:00 Test Item Value Reference Range Interpretation Comments UA Color (test code = Yellow *NA*(10/21/21 3:19 UA Color) AM) [facility] AND [id number] 08:19:00 Test Item Value Reference Range Interpretation Comments UA Turbidity (test code Marked *ABN*(10/21/21 = UA Turbidity) 3:19 AM) [facility] AND [id number] 08:19:00 Test Item Value Reference Range Interpretation Comments UA Spec Grav (test code = UA Spec 1.013 1 Grav) [facility] [id number] 08:19:00 Test Item Value Reference Range Interpretation Comments UA pH (test code = UA pH) 5.0 1 5.0-8.0 [facility] [id number] 08:19:00 Test Item Value Reference Range Interpretation Comments UA Protein (test code = UA Negative mg/dL Protein) [facility] [id number] 08:19:00 Test Item Value Reference Range Interpretation Comments UA Glucose (test code = UA Negative mg/dL Glucose) [facility] [id number] 08:19:00 Test Item Value Reference Range Interpretation Comments UA Ketones (test code = UA Negative mg/dL Ketones) [facility] [id number] 08:19:00 Test Item Value Reference Range Interpretation Comments UA Bili (test code = Negative *NA*(10/21/21 UA Bili) 3:19 AM) [facility] [id number] 08:19:00 Test Item Value Reference Range Interpretation Comments UA Blood (test code = Small *ABN*(10/21/21 UA Blood) 3:19 AM) [facility] [id number] 08:19:00 Test Item Value Reference Range Interpretation Comments UA Spec Grav (test code = UA Spec 1.013 1 Grav) [facility] [id number] 08:19:00 Test Item Value Reference Range Interpretation Comments UA Urobilinogen (test code = UA no gt 0.1-1.0 Urobilinogen) [facility] [id number] 08:19:00 Test Item Value Reference Range Interpretation Comments UA Nitrite (test code Positive *ABN*(10/21/21 = UA Nitrite) 3:19 AM) [facility] [id number] 08:19:00 Test Item Value Reference Range Interpretation Comments UA Leuk Est (test code Large *ABN*(10/21/21 3:19 = UA Leuk Est) AM) [facility] [id number] 08:19:00 Test Item Value Reference Range Interpretation Comments UA WBC (test code = no gt See_Comment [Automa lester message] The UA WBC) system which ge nerated this result transmit letser reference range : <=5. The reference range was not used to interpr et this result as dany l/abnormal. [facility] [id number] 08:19:00 Test Item Value Reference Range Interpretation Comments UA RBC (test code = 8 See_Comment [Automa lester message] The UA RBC) system which ge nerated this result transmit lester reference range : <=2. The reference range was not used to interpr et this result as dany l/abnormal. [facility] [id number] 08:19:00 Test Item Value Reference Range Interpretation Comments UA Bacteria (test code = UA Occasional /HPF Bacteria) [facility] [id number] 08:19:00 Test Item Value Reference Range Interpretation Comments UA Mucus (test code = UA Mucus) Few /LPF [facility] AND [id number] 08:19:00 Test Item Value Reference Range Interpretation Comments UA Amorph Christi (test code = Occasional /HPF UA Amorph Christi) [facility] [id number] 08:19:00 Test Item Value Reference Range Interpretation Comments UA Sq Epi (test code = UA Sq Epi) None [facility]en [facility] CampusCulture: [id number] 08:19:00 Test Item Value Reference Range Interpretation Comments Culture: Urine (test Holding For Better code = Culture: Urine) [facility] AND [id number] 08:19:00 Test Item Value Reference Range Interpretation Comments UA pH (test code = UA pH) 5.0 1 5.0-8.0 [facility] AND [id number] 08:19:00 Test Item Value Reference Range Interpretation Comments UA Protein (test code = UA Negative mg/dL Protein) [facility] AND [id number] 08:19:00 Test Item Value Reference Range Interpretation Comments UA Glucose (test code = UA Negative mg/dL Glucose) [facility] AND [id number] 08:19:00 Test Item Value Reference Range Interpretation Comments UA Ketones (test code = UA Negative mg/dL Ketones) [facility] AND [id number] 08:19:00 Test Item Value Reference Range Interpretation Comments UA Bili (test code = Negative *NA*(10/21/21 UA Bili) 3:19 AM) [facility] AND [id number] 08:19:00 Test Item Value Reference Range Interpretation Comments UA Blood (test code = Small *ABN*(10/21/21 UA Blood) 3:19 AM) [facility] AND [id number] 08:19:00 Test Item Value Reference Range Interpretation Comments UA Urobilinogen (test code = UA no gt 0.1-1.0 Urobilinogen) [facility] AND [id number] 08:19:00 Test Item Value Reference Range Interpretation Comments UA Nitrite (test code Positive *ABN*(10/21/21 = UA Nitrite) 3:19 AM) [facility] AND [id number] 08:19:00 Test Item Value Reference Range Interpretation Comments UA Leuk Est (test code Large *ABN*(10/21/21 3:19 = UA Leuk Est) AM) [facility] AND [id number] 08:19:00 Test Item Value Reference Range Interpretation Comments UA WBC (test code = no gt See_Comment [Automa lester message] The UA WBC) system which ge nerated this result transmit lester reference range : <=5. The reference range was not used to interpr et this result as dany l/abnormal. [facility] [id number] 08:19:00 Test Item Value Reference Range Interpretation Comments UA RBC (test code = 8 See_Comment [Automa lester message] The UA RBC) system which ge nerated this result transmit lester reference range : <=2. The reference range was not used to interpr et this result as dany l/abnormal. [facility] [id number] 08:19:00 Test Item Value Reference Range Interpretation Comments UA Bacteria (test code = UA Occasional /HPF Bacteria) [facility] [id number] 08:19:00 Test Item Value Reference Range Interpretation Comments UA Mucus (test code = UA Mucus) Few /LPF [facility] [id number] 08:19:00 Test Item Value Reference Range Interpretation Comments UA Amorph Christi (test code = Occasional /HPF UA Amorph Christi) [facility] [id number] 08:19:00 Test Item Value Reference Range Interpretation Comments UA Sq Epi (test code = UA Sq Epi) None [facility] [id number] 08:19:00 Test Item Value Reference Range Interpretation Comments Culture: Urine (test Holding For Better code = Culture: Urine) Growth [facility] CenterannCEFTRIAXONE:SUSC:PT:ISOLATE:ORDQN:[id number] 08:19:00 Test Item Value Reference Range Interpretation Comments Culture: Urine (test >100,000 CFU/mL code = Culture: Providencia stuartii Urine) [facility] HermannCEFTRIAXONE:SUSC:PT:ISOLATE:ORDQN:[id number] 08:19:00 Test Item Value Reference Range Interpretation Comments Providencia stuartii Providencia stuartii (test code = Providencia stuartii) [facility] [id number] 08:19:00 Test Item Value Reference Range Interpretation Comments UA Color (test code = Yellow *NA*(10/21/21 3:19 UA Color) AM) [facility] [id number] 08:19:00 Test Item Value Reference Range Interpretation Comments UA Turbidity (test code Marked *ABN*(10/21/21 = UA Turbidity) 3:19 AM) [facility] [id number] 08:19:00 Test Item Value Reference Range Interpretation Comments UA Spec Grav (test code = UA Spec 1.013 1 Grav) [facility] AND [id number] 08:19:00 Test Item Value Reference Range Interpretation Comments UA pH (test code = UA pH) 5.0 1 5.0-8.0 [facility] AND [id number] 08:19:00 Test Item Value Reference Range Interpretation Comments UA Protein (test code = UA Negative mg/dL Protein) [facility] AND [id number] 08:19:00 Test Item Value Reference Range Interpretation Comments UA Glucose (test code = UA Negative mg/dL Glucose) [facility] AND [id number] 08:19:00 Test Item Value Reference Range Interpretation Comments UA Ketones (test code = UA Negative mg/dL Ketones) [facility] AND [id number] 08:19:00 Test Item Value Reference Range Interpretation Comments UA Bili (test code = Negative *NA*(10/21/21 UA Bili) 3:19 AM) [facility] AND [id number] 08:19:00 Test Item Value Reference Range Interpretation Comments UA Blood (test code = Small *ABN*(10/21/21 UA Blood) 3:19 AM) [facility] AND [id number] 08:19:00 Test Item Value Reference Range Interpretation Comments UA Urobilinogen (test code = UA no gt 0.1-1.0 Urobilinogen) [facility] AND [id number] 08:19:00 Test Item Value Reference Range Interpretation Comments UA Nitrite (test code Positive *ABN*(10/21/21 = UA Nitrite) 3:19 AM) [facility] AND [id number] 08:19:00 Test Item Value Reference Range Interpretation Comments UA Leuk Est (test code Large *ABN*(10/21/21 3:19 = UA Leuk Est) AM) [facility] AND [id number] 08:19:00 Test Item Value Reference Range Interpretation Comments UA WBC (test code = no gt See_Comment [Automa lester message] The UA WBC) system which ge nerated this result transmit lester reference range : <=5. The reference range was not used to interpr et this result as dany l/abnormal. [facility] [id number] 08:19:00 Test Item Value Reference Range Interpretation Comments UA RBC (test code = 8 See_Comment [Automa lester message] The UA RBC) system which ge nerated this result transmit lester reference range : <=2. The reference range was not used to interpr et this result as dany l/abnormal. [facility] [id number] 08:19:00 Test Item Value Reference Range Interpretation Comments UA Bacteria (test code = UA Occasional /HPF Bacteria) [facility] [id number] 08:19:00 Test Item Value Reference Range Interpretation Comments UA Mucus (test code = UA Mucus) Few /LPF [facility] [id number] 08:19:00 Test Item Value Reference Range Interpretation Comments UA Amorph Christi (test code = Occasional /HPF UA Amorph Christi) [facility] [id number] 08:19:00 Test Item Value Reference Range Interpretation Comments UA Sq Epi (test code = UA Sq Epi) None [facility]: [id number] 08:19:00 Test Item Value Reference Range Interpretation Comments Culture: Urine (test Holding For Better code = Culture: Urine) Growth [facility] CenterannCEFTRIAXONE:SUSC:PT:ISOLATE:ORDQN:[id number] 08:19:00 Test Item Value Reference Range Interpretation Comments Culture: Urine (test >100,000 CFU/mL code = Culture: Providencia stuartii Urine) [facility] LorenaannCEFTRIAXONE:SUSC:PT:ISOLATE:ORDQN:[id number] 08:19:00 Test Item Value Reference Range Interpretation Comments Providencia stuartii Providencia stuartii (test code = Providencia stuartii) [facility] [id number] 08:19:00 Test Item Value Reference Range Interpretation Comments UA Color (test code = Yellow *NA*(10/21/21 3:19 UA Color) AM) [facility] [id number] 08:19:00 Test Item Value Reference Range Interpretation Comments UA Turbidity (test code Marked *ABN*(10/21/21 = UA Turbidity) 3:19 AM) [facility] [id number] 08:19:00 Test Item Value Reference Range Interpretation Comments UA Spec Grav (test code = UA Spec 1.013 1 Grav) [facility] AND [id number] 08:19:00 Test Item Value Reference Range Interpretation Comments UA pH (test code = UA pH) 5.0 1 5.0-8.0 [facility] AND [id number] 08:19:00 Test Item Value Reference Range Interpretation Comments UA Protein (test code = UA Negative mg/dL Protein) [facility] AND [id number] 08:19:00 Test Item Value Reference Range Interpretation Comments UA Glucose (test code = UA Negative mg/dL Glucose) [facility] AND [id number] 08:19:00 Test Item Value Reference Range Interpretation Comments UA Ketones (test code = UA Negative mg/dL Ketones) [facility] AND [id number] 08:19:00 Test Item Value Reference Range Interpretation Comments UA Bili (test code = Negative *NA*(10/21/21 UA Bili) 3:19 AM) [facility] AND [id number] 08:19:00 Test Item Value Reference Range Interpretation Comments UA Blood (test code = Small *ABN*(10/21/21 UA Blood) 3:19 AM) [facility] AND [id number] 08:19:00 Test Item Value Reference Range Interpretation Comments UA Urobilinogen (test code = UA no gt 0.1-1.0 Urobilinogen) [facility] AND [id number] 08:19:00 Test Item Value Reference Range Interpretation Comments UA Nitrite (test code Positive *ABN*(10/21/21 = UA Nitrite) 3:19 AM) [facility] AND [id number] 08:19:00 Test Item Value Reference Range Interpretation Comments UA Leuk Est (test code Large *ABN*(10/21/21 3:19 = UA Leuk Est) AM) [facility] AND [id number] 08:19:00 Test Item Value Reference Range Interpretation Comments UA WBC (test code = no gt See_Comment [Automa lester message] The UA WBC) system which ge nerated this result transmit lester reference range : <=5. The reference range was not used to interpr et this result as dany l/abnormal. [facility] [id number] 08:19:00 Test Item Value Reference Range Interpretation Comments UA RBC (test code = 8 See_Comment [Automa lester message] The UA RBC) system which ge nerated this result transmit lester reference range : <=2. The reference range was not used to interpr et this result as dany l/abnormal. [facility] [id number] 08:19:00 Test Item Value Reference Range Interpretation Comments UA Bacteria (test code = UA Occasional /HPF Bacteria) [facility] [id number] 08:19:00 Test Item Value Reference Range Interpretation Comments UA Mucus (test code = UA Mucus) Few /LPF [facility] [id number] 08:19:00 Test Item Value Reference Range Interpretation Comments UA Amorph Christi (test code = Occasional /HPF UA Amorph Christi) [facility] [id number] 08:19:00 Test Item Value Reference Range Interpretation Comments UA Sq Epi (test code = UA Sq Epi) None [facility]: [id number] 08:19:00 Test Item Value Reference Range Interpretation Comments Culture: Urine (test Holding For Better code = Culture: Urine) Growth [facility] JasonCHANDAFTRIAXONE:SUSC:PT:ISOLATE:ORDQN:[id number] 08:19:00 Test Item Value Reference Range Interpretation Comments Culture: Urine (test >100,000 CFU/mL code = Culture: Providencia stuartii Urine) [facility] JasonCEFTRIAXONE:SUSC:PT:ISOLATE:ORDQN:[id number] 08:19:00 Test Item Value Reference Range Interpretation Comments Providencia stuartii Providencia stuartii (test code = Providencia stuartii) [facility] [id number] 08:19:00 Test Item Value Reference Range Interpretation Comments UA Color (test code = Yellow *NA*(10/21/21 3:19 UA Color) AM) [facility] [id number] 08:19:00 Test Item Value Reference Range Interpretation Comments UA Turbidity (test code Marked *ABN*(10/21/21 = UA Turbidity) 3:19 AM) [facility] AND [id number] 08:19:00 Test Item Value Reference Range Interpretation Comments UA Spec Grav (test code = UA Spec 1.013 1 Grav) [facility] AND [id number] 08:19:00 Test Item Value Reference Range Interpretation Comments UA pH (test code = UA pH) 5.0 1 5.0-8.0 [facility] AND [id number] 08:19:00 Test Item Value Reference Range Interpretation Comments UA Protein (test code = UA Negative mg/dL Protein) [facility] AND [id number] 08:19:00 Test Item Value Reference Range Interpretation Comments UA Glucose (test code = UA Negative mg/dL Glucose) [facility] AND [id number] 08:19:00 Test Item Value Reference Range Interpretation Comments UA Ketones (test code = UA Negative mg/dL Ketones) [facility] AND [id number] 08:19:00 Test Item Value Reference Range Interpretation Comments UA Bili (test code = Negative *NA*(10/21/21 UA Bili) 3:19 AM) [facility] AND [id number] 08:19:00 Test Item Value Reference Range Interpretation Comments UA Blood (test code = Small *ABN*(10/21/21 UA Blood) 3:19 AM) [facility] AND [id number] 08:19:00 Test Item Value Reference Range Interpretation Comments UA Urobilinogen (test code = UA no gt 0.1-1.0 Urobilinogen) [facility] AND [id number] 08:19:00 Test Item Value Reference Range Interpretation Comments UA Nitrite (test code Positive *ABN*(10/21/21 = UA Nitrite) 3:19 AM) [facility] AND [id number] 08:19:00 Test Item Value Reference Range Interpretation Comments UA Leuk Est (test code Large *ABN*(10/21/21 3:19 = UA Leuk Est) AM) [facility] AND [id number] 08:19:00 Test Item Value Reference Range Interpretation Comments UA WBC (test code = no gt See_Comment [Automa lester message] The UA WBC) system which ge nerated this result transmit lester reference range : <=5. The reference range was not used to interpr et this result as dany l/abnormal. [facility] [id number] 08:19:00 Test Item Value Reference Range Interpretation Comments UA RBC (test code = 8 See_Comment [Automa lester message] The UA RBC) system which ge nerated this result transmit lester reference range : <=2. The reference range was not used to interpr et this result as dany l/abnormal. [facility] [id number] 08:19:00 Test Item Value Reference Range Interpretation Comments UA Bacteria (test code = UA Occasional /HPF Bacteria) [facility] [id number] 08:19:00 Test Item Value Reference Range Interpretation Comments UA Mucus (test code = UA Mucus) Few /LPF [facility] [id number] 08:19:00 Test Item Value Reference Range Interpretation Comments UA Amorph Christi (test code = Occasional /HPF UA Amorph Christi) [facility] AND [id number] 08:19:00 Test Item Value Reference Range Interpretation Comments UA Sq Epi (test code = UA Sq Epi) None [facility]en [facility] CampusCulture: [id number] 08:19:00 Test Item Value Reference Range Interpretation Comments Culture: Urine (test Holding For Better code = Culture: Urine) Growth [id number] 00:20:00 Test Item Value Reference Range Interpretation Comments PT (test code = PT) 13.1 s 12.0-14.7 [facility] [id number] 00:20:00 Test Item Value Reference Range Interpretation Comments INR (test code = INR) 1.00 1 0.85-1.17 [facility] [id number] 00:20:00 Test Item Value Reference Range Interpretation Comments PTT (test code = PTT) 31.5 s 22.9-35.8 [facility] [id number] 00:20:00 Test Item Value Reference Range Interpretation Comments Segs (test code = Segs) 68.7 45.0-75.0 [facility] [id number] 00:20:00 Test Item Value Reference Range Interpretation Comments Lymphocytes (test code = Lymphocytes) 19.6 20.0-40.0 [facility] [id number] 00:20:00 Test Item Value Reference Range Interpretation Comments Monocytes (test code = Monocytes) 9.4 2.0-12.0 [facility] [id number] 00:20:00 Test Item Value Reference Range Interpretation Comments Eosinophils (test code = 1.4 See_Comment [A utomated message] The Eosinophils) system which ge nerated this result tra nsmitted reference range : <=4.0. The reference r boubacar was not used to int erpret this result as normal/abnormal . [facility] [id number] 00:20:00 Test Item Value Reference Range Interpretation Comments Basophils (test code = 0.9 See_Comment [Aut omated message] The Basophils) system which ge nerated this result tra nsmitted reference range : <=1.0. The reference r boubacar was not used to int erpret this result as normal/abnormal . [facility] [id number] 00:20:00 Test Item Value Reference Range Interpretation Comments Neutrophils # (test code = Neutrophils 6.9 1.5-8.1 #) [facility] TylerEzncjjrEJWLVVPLZL9801-29-19 00:20:00 Test Item Value Reference Range Interpretation Comments Lymphocytes # (test code = Lymphocytes 2.0 1.0-5.5 #) [facility] [id number] 00:20:00 Test Item Value Reference Range Interpretation Comments Monocytes # (test code 1.0 See_Comment [Aut omated message] The = Monocytes #) system which generated this result tra nsmitted reference range : <=0.8. The reference r boubacar was not used to int erpret this result as normal/abnormal . [facility] [id number] 00:20:00 Test Item Value Reference Range Interpretation Comments Eosinophils # (test code 0.1 See_Comment [A utomated message] The = Eosinophils #) system whic h generated this result tra nsmitted reference range : <=0.5. The reference r boubacar was not used to int erpret this result as normal/abnormal . [facility] [id number] 00:20:00 Test Item Value Reference Range Interpretation Comments Basophils # (test code 0.1 See_Comment [Aut omated message] The = Basophils #) system which generated this result tra nsmitted reference range : <=0.2. The reference r boubacar was not used to int erpret this result as normal/abnormal . [facility] [id number] 00:20:00 Test Item Value Reference Range Interpretation Comments C-REACTIVE PROTEIN (test code = 13.2 C-REACTIVE PROTEIN) [facility] [employer] [id number] 00:20:00 Test Item Value Reference Range Interpretation Comments ABO/Rh (test code = ABO/Rh) AB POS [facility] [employer] [id number] 00:20:00 Test Item Value Reference Range Interpretation Comments Antibody Scrn (test Negative (10/20/21 7:20 code = Antibody Scrn) PM) [facility] [employer] [id number] 00:20:00 Test Item Value Reference Range Interpretation Comments Glucose Lvl (test code = Glucose Lvl) 74 70-99 [facility] [employer] [id number] 00:20:00 Test Item Value Reference Range Interpretation Comments BUN (test code = BUN) 15 -22 [facility] [employer] [id number] 00:20:00 Test Item Value Reference Range Interpretation Comments Creatinine Lvl (test code = Creatinine 0.61 0.50-1.40 Lvl) [facility] [employer] [id number] 00:20:00 Test Item Value Reference Range Interpretation Comments Sodium Lvl (test code = Sodium Lvl) 139 135-145 [facility] [employer] [id number] 00:20:00 Test Item Value Reference Range Interpretation Comments Potassium Lvl (test code = Potassium 4.9 3.5-5.1 Lvl) [facility] [employer]2022-04-09 00:20:00 Test Item Value Reference Range Interpretation Comments Chloride Lvl (test code = Chloride Lvl) 105 95-109 [facility] [employer] [id number] 00:20:00 Test Item Value Reference Range Interpretation Comments CO2 (test code = CO2) 30 24-32 [facility] [employer] [id number] 00:20:00 Test Item Value Reference Range Interpretation Comments Calcium Lvl (test code = Calcium Lvl) 9.5 8.5-10.5 [place] 872842-04-09 00:20:00 Test Item Value Reference Range Interpretation Comments AGAP (test code = AGAP) 8.9 10.0-20.0 [place] 872842-04-09 00:20:00 Test Item Value Reference Range Interpretation Comments eGFR (test code = eGFR) 129 [place] 872842-04-09 00:20:00 Test Item Value Reference Range Interpretation Comments Lactic Acid Lvl (test code = Lactic 1.2 0.5-2.2 Acid Lvl) [place] 872842-04-09 00:20:00 Test Item Value Reference Range Interpretation Comments Procalcitonin Lvl (test 0.09 See_Comment [Au tomated message] code = Procalcitonin Lvl) e system which generated this result transmitted ref erence range: <=0.10. The reference range was not used to interpr et this result as normal/abnormal . [place] 122332-04-09 00:20:00 Test Item Value Reference Range Interpretation Comments WBC (test code = WBC) 10.1 3.7-10.4 [place] 122332-04-09 00:20:00 Test Item Value Reference Range Interpretation Comments RBC (test code = RBC) 5.14 4.70-6.10 [place] 122332-04-09 00:20:00 Test Item Value Reference Range Interpretation Comments Hgb (test code = Hgb) 15.5 14.0-18.0 [place] 122332-04-09 00:20:00 Test Item Value Reference Range Interpretation Comments Hct (test code = Hct) 46.5 42.0-54.0 [place] [address]-04-09 00:20:00 Test Item Value Reference Range Interpretation Comments MCV (test code = MCV) 90.5 80.0-94.0 [place] 122332-04-09 00:20:00 Test Item Value Reference Range Interpretation Comments MCH (test code = MCH) 30.1 pg 27.0-31.0 [place] 122332-04-09 00:20:00 Test Item Value Reference Range Interpretation Comments MCHC (test code = MCHC) 33.3 32.0-36.0 [place] 122332-04-09 00:20:00 Test Item Value Reference Range Interpretation Comments RDW (test code = RDW) 15.7 11.5-14.5 [place] [address]-04-09 00:20:00 Test Item Value Reference Range Interpretation Comments Platelet (test code = Platelet) 302 133-450 [place] [address]-04-09 00:20:00 Test Item Value Reference Range Interpretation Comments MPV (test code = MPV) 8.9 7.4-10.4 [place] [address]-04-09 00:20:00 Test Item Value Reference Range Interpretation Comments Sed Rate (test code = 17 See_Comment [Auto mated message] The Sed Rate) system which ge nerated this result transmit lester reference range : <=15. The reference range was not used to interpr et this result as dany l/abnormal. [place] 122332-04-09 00:20:00 Test Item Value Reference Range Interpretation Comments PT (test code = PT) 13.1 s 12.0-14.7 [place] [address]-04-09 00:20:00 Test Item Value Reference Range Interpretation Comments INR (test code = INR) 1.00 1 0.85-1.17 [place] [address]-04-09 00:20:00 Test Item Value Reference Range Interpretation Comments PTT (test code = PTT) 31.5 s 22.9-35.8 [place] [address]-04-09 00:20:00 Test Item Value Reference Range Interpretation Comments Segs (test code = Segs) 68.7 45.0-75.0 [place] [address]-04-09 00:20:00 Test Item Value Reference Range Interpretation Comments Lymphocytes (test code = Lymphocytes) 19.6 20.0-40.0 [place] [address]-04-09 00:20:00 Test Item Value Reference Range Interpretation Comments Monocytes (test code = Monocytes) 9.4 2.0-12.0 [place] [address]-04-09 00:20:00 Test Item Value Reference Range Interpretation Comments Eosinophils (test code = 1.4 See_Comment [A utomated message] The Eosinophils) system which ge nerated this result tra nsmitted reference range : <=4.0. The reference r boubacar was not used to int erpret this result as normal/abnormal . [facility] TylerDgujglkEBTTHFFGVR7340-48-80 00:20:00 Test Item Value Reference Range Interpretation Comments Basophils (test code = 0.9 See_Comment [Aut omated message] The Basophils) system which ge nerated this result tra nsmitted reference range : <=1.0. The reference r boubacar was not used to int erpret this result as normal/abnormal . [facility] TylerJvmeoylVBVZMZYIBR1365-62-34 00:20:00 Test Item Value Reference Range Interpretation Comments Neutrophils # (test code = Neutrophils 6.9 1.5-8.1 #) [facility] TylerLkstytfOIFTQKAXTN3286-13-10 00:20:00 Test Item Value Reference Range Interpretation Comments Lymphocytes # (test code = Lymphocytes 2.0 1.0-5.5 #) [facility] TylerRcyfwuwRLBLLGKOWU3128-63-02 00:20:00 Test Item Value Reference Range Interpretation Comments Monocytes # (test code 1.0 See_Comment [Aut omated message] The = Monocytes #) system which generated this result tra nsmitted reference range : <=0.8. The reference r boubacar was not used to int erpret this result as normal/abnormal . [facility] TylerOalkdafOYJGSOZCUS7552-50-55 00:20:00 Test Item Value Reference Range Interpretation Comments Eosinophils # (test code 0.1 See_Comment [A utomated message] The = Eosinophils #) system whic h generated this result tra nsmitted reference range : <=0.5. The reference r boubacar was not used to int erpret this result as normal/abnormal . [facility] TylerNmqhyaeZXTGBTPBEA6753-49-89 00:20:00 Test Item Value Reference Range Interpretation Comments Basophils # (test code 0.1 See_Comment [Aut omated message] The = Basophils #) system which generated this result tra nsmitted reference range : <=0.2. The reference r boubacar was not used to int erpret this result as normal/abnormal . [facility] CampusMrlcsknEUCCOYVAOM2301-26-17 00:20:00 Test Item Value Reference Range Interpretation Comments C-REACTIVE PROTEIN (test code = 13.2 C-REACTIVE PROTEIN) [facility] [id number] 00:20:00 Test Item Value Reference Range Interpretation Comments ABO/Rh (test code = ABO/Rh) AB POS [facility] [id number] 00:20:00 Test Item Value Reference Range Interpretation Comments Antibody Scrn (test Negative (10/20/21 7:20 code = Antibody Scrn) PM) [facility]2022-04-09 00:20:00 Test Item Value Reference Range Interpretation Comments Glucose Lvl (test code = Glucose Lvl) 74 70-99 [facility]2022-04-09 00:20:00 Test Item Value Reference Range Interpretation Comments BUN (test code = BUN) 15 7-22 [facility]2022-04-09 00:20:00 Test Item Value Reference Range Interpretation Comments Creatinine Lvl (test code = Creatinine 0.61 0.50-1.40 Lvl) [facility]2022-04-09 00:20:00 Test Item Value Reference Range Interpretation Comments Sodium Lvl (test code = Sodium Lvl) 139 135-145 [facility] [id number] 00:20:00 Test Item Value Reference Range Interpretation Comments Potassium Lvl (test code = Potassium 4.9 3.5-5.1 Lvl) [facility]2022-04-09 00:20:00 Test Item Value Reference Range Interpretation Comments Chloride Lvl (test code = Chloride Lvl) 105 95-109 [facility] [id number] 00:20:00 Test Item Value Reference Range Interpretation Comments CO2 (test code = CO2) 30 24-32 [facility]2022-04-09 00:20:00 Test Item Value Reference Range Interpretation Comments Calcium Lvl (test code = Calcium Lvl) 9.5 8.5-10.5 [facility]2022-04-09 00:20:00 Test Item Value Reference Range Interpretation Comments AGAP (test code = AGAP) 8.9 10.0-20.0 [facility] [id number] 00:20:00 Test Item Value Reference Range Interpretation Comments eGFR (test code = eGFR) 129 [facility]2022-04-09 00:20:00 Test Item Value Reference Range Interpretation Comments Lactic Acid Lvl (test code = Lactic 1.2 0.5-2.2 Acid Lvl) [facility]2022-04-09 00:20:00 Test Item Value Reference Range Interpretation Comments Procalcitonin Lvl (test 0.09 See_Comment [Au tomated message] code = Procalcitonin Lvl) e system which generated this result transmitted ref erence range: <=0.10. The reference range was not used to interpr et this result as normal/abnormal . [facility] TylerKpkodavWFMVGMNCNP9515-45-39 00:20:00 Test Item Value Reference Range Interpretation Comments WBC (test code = WBC) 10.1 3.7-10.4 [facility] TylerIkkhqhwNCNNGCERLJ9796-64-91 00:20:00 Test Item Value Reference Range Interpretation Comments RBC (test code = RBC) 5.14 4.70-6.10 [facility] TylerUbxoqiqWJGDBEFYXE5251-28-14 00:20:00 Test Item Value Reference Range Interpretation Comments Hgb (test code = Hgb) 15.5 14.0-18.0 [facility] TylerMigpdqvNXFFASUKVA8235-06-35 00:20:00 Test Item Value Reference Range Interpretation Comments Hct (test code = Hct) 46.5 42.0-54.0 [facility] TylerBethtuiZOJBLAEFHV5971-21-26 00:20:00 Test Item Value Reference Range Interpretation Comments MCV (test code = MCV) 90.5 80.0-94.0 [facility] TylerGyonncvEZPYFMUNOQ5352-96-41 00:20:00 Test Item Value Reference Range Interpretation Comments MCH (test code = MCH) 30.1 pg 27.0-31.0 [facility] TylerLxotgtxDQWFNBLDAU1335-77-43 00:20:00 Test Item Value Reference Range Interpretation Comments MCHC (test code = MCHC) 33.3 32.0-36.0 [facility] TylerTthpnasHPDUYCNHCD7172-83-77 00:20:00 Test Item Value Reference Range Interpretation Comments RDW (test code = RDW) 15.7 11.5-14.5 [facility] TylerFgvohtzIEKTTSKIIH0828-34-16 00:20:00 Test Item Value Reference Range Interpretation Comments Platelet (test code = Platelet) 302 133-450 [facility] TylerNdwccqkCOYSLUQTGP7787-86-47 00:20:00 Test Item Value Reference Range Interpretation Comments MPV (test code = MPV) 8.9 7.4-10.4 [facility] TylerFdgnfhlKPHAJIUCJD2924-44-26 00:20:00 Test Item Value Reference Range Interpretation Comments Sed Rate (test code = 17 See_Comment [Auto mated message] The Sed Rate) system which ge nerated this result transmit lester reference range : <=15. The reference range was not used to interpr et this result as dany l/abnormal. [facility] TylerEnfgofeENMLLTQXWS3574-37-96 00:20:00 Test Item Value Reference Range Interpretation Comments PT (test code = PT) 13.1 s 12.0-14.7 [facility] TylerMsypxjnTGEWWUHWNZ4393-07-46 00:20:00 Test Item Value Reference Range Interpretation Comments INR (test code = INR) 1.00 1 0.85-1.17 [facility] TylerXuqqskhFRJTXISXTZ9057-51-78 00:20:00 Test Item Value Reference Range Interpretation Comments PTT (test code = PTT) 31.5 s 22.9-35.8 [place] 122332-04-09 00:20:00 Test Item Value Reference Range Interpretation Comments Segs (test code = Segs) 68.7 45.0-75.0 [facility] TylerTkdfxhbHZYUXFKSPT6362-41-48 00:20:00 Test Item Value Reference Range Interpretation Comments Lymphocytes (test code = Lymphocytes) 19.6 20.0-40.0 [facility] TylerTqttorvGZCWSGZJOF3221-41-79 00:20:00 Test Item Value Reference Range Interpretation Comments Monocytes (test code = Monocytes) 9.4 2.0-12.0 [facility] TylerYqynwzfHKSHRXLKTK2030-11-61 00:20:00 Test Item Value Reference Range Interpretation Comments Eosinophils (test code = 1.4 See_Comment [A utomated message] The Eosinophils) system which ge nerated this result tra nsmitted reference range : <=4.0. The reference r boubacar was not used to int erpret this result as normal/abnormal . [facility] TylerYwwyzgnUTEEUTRYID7605-02-09 00:20:00 Test Item Value Reference Range Interpretation Comments Basophils (test code = 0.9 See_Comment [Aut omated message] The Basophils) system which ge nerated this result tra nsmitted reference range : <=1.0. The reference r boubacar was not used to int erpret this result as normal/abnormal . [facility] TylerUasemitGJQTLBVRRA8082-80-65 00:20:00 Test Item Value Reference Range Interpretation Comments Neutrophils # (test code = Neutrophils 6.9 1.5-8.1 #) [place] [address]-04-09 00:20:00 Test Item Value Reference Range Interpretation Comments Lymphocytes # (test code = Lymphocytes 2.0 1.0-5.5 #) [facility] TylerEmsnxfcZNVAQFZZBZ9457-65-29 00:20:00 Test Item Value Reference Range Interpretation Comments Monocytes # (test code 1.0 See_Comment [Aut omated message] The = Monocytes #) system which generated this result tra nsmitted reference range : <=0.8. The reference r boubacar was not used to int erpret this result as normal/abnormal . [facility] TylerBizyiztGRULAUUWSV9215-26-27 00:20:00 Test Item Value Reference Range Interpretation Comments Eosinophils # (test code 0.1 See_Comment [A utomated message] The = Eosinophils #) system whic h generated this result tra nsmitted reference range : <=0.5. The reference r boubacar was not used to int erpret this result as normal/abnormal . [facility] CampusKybodnhHTNRWEYMSW5075-11-12 00:20:00 Test Item Value Reference Range Interpretation Comments Basophils # (test code 0.1 See_Comment [Aut omated message] The = Basophils #) system which generated this result tra nsmitted reference range : <=0.2. The reference r boubacar was not used to int erpret this result as normal/abnormal . [facility] CampusOfmrntgJNHXLZLQWD0212-91-37 00:20:00 Test Item Value Reference Range Interpretation Comments C-REACTIVE PROTEIN (test code = 13.2 C-REACTIVE PROTEIN) [facility] [id number] 00:20:00 Test Item Value Reference Range Interpretation Comments ABO/Rh (test code = ABO/Rh) AB POS [facility] [employer] [id number] 00:20:00 Test Item Value Reference Range Interpretation Comments Antibody Scrn (test Negative (10/20/21 7:20 code = Antibody Scrn) PM) [facility] [id number] 00:20:00 Test Item Value Reference Range Interpretation Comments Glucose Lvl (test code = Glucose Lvl) 74 70-99 [facility] HHAIP7500-79-18 00:20:00 Test Item Value Reference Range Interpretation Comments BUN (test code = BUN) 15 - [facility] HHEKJ3420-86-20 00:20:00 Test Item Value Reference Range Interpretation Comments Creatinine Lvl (test code = Creatinine 0.61 0.50-1.40 Lvl) [place] 872842-04-09 00:20:00 Test Item Value Reference Range Interpretation Comments Sodium Lvl (test code = Sodium Lvl) 139 135-145 [place] 872842-04-09 00:20:00 Test Item Value Reference Range Interpretation Comments Potassium Lvl (test code = Potassium 4.9 3.5-5.1 Lvl) [place] 872842-04-09 00:20:00 Test Item Value Reference Range Interpretation Comments Chloride Lvl (test code = Chloride Lvl) 105 95-109 [place] 872842-04-09 00:20:00 Test Item Value Reference Range Interpretation Comments CO2 (test code = CO2) 30 24-32 [place] 872842-04-09 00:20:00 Test Item Value Reference Range Interpretation Comments Calcium Lvl (test code = Calcium Lvl) 9.5 8.5-10.5 [place] 872842-04-09 00:20:00 Test Item Value Reference Range Interpretation Comments AGAP (test code = AGAP) 8.9 10.0-20.0 [place] 872842-04-09 00:20:00 Test Item Value Reference Range Interpretation Comments eGFR (test code = eGFR) 129 [place] 872842-04-09 00:20:00 Test Item Value Reference Range Interpretation Comments Lactic Acid Lvl (test code = Lactic 1.2 0.5-2.2 Acid Lvl) [place] 872842-04-09 00:20:00 Test Item Value Reference Range Interpretation Comments Procalcitonin Lvl (test 0.09 See_Comment [Au tomated message] code = Procalcitonin Lvl) e system which generated this result transmitted ref erence range: <=0.10. The reference range was not used to interpr et this result as normal/abnormal . [place] 122332-04-09 00:20:00 Test Item Value Reference Range Interpretation Comments WBC (test code = WBC) 10.1 3.7-10.4 [place] 122332-04-09 00:20:00 Test Item Value Reference Range Interpretation Comments RBC (test code = RBC) 5.14 4.70-6.10 [facility] TylerYhjochoYFHNLRVKVV5081-21-46 00:20:00 Test Item Value Reference Range Interpretation Comments Hgb (test code = Hgb) 15.5 14.0-18.0 [facility] TylerEzcnmmtDFGKJWCLXN1353-76-28 00:20:00 Test Item Value Reference Range Interpretation Comments Hct (test code = Hct) 46.5 42.0-54.0 [facility] TylerKxjnefeMPELLPIABU9329-60-20 00:20:00 Test Item Value Reference Range Interpretation Comments MCV (test code = MCV) 90.5 80.0-94.0 [facility] TylerXqllmkrYZQTSZEWLS4719-55-75 00:20:00 Test Item Value Reference Range Interpretation Comments MCH (test code = MCH) 30.1 pg 27.0-31.0 [facility] TylerRstgaxyEIWXNFDKIX1938-97-26 00:20:00 Test Item Value Reference Range Interpretation Comments MCHC (test code = MCHC) 33.3 32.0-36.0 [facility] TylerSlgdqkaRRCZQWEBIP2251-62-68 00:20:00 Test Item Value Reference Range Interpretation Comments RDW (test code = RDW) 15.7 11.5-14.5 [facility] TylerAhwstayPRVYFVVRRS5856-66-73 00:20:00 Test Item Value Reference Range Interpretation Comments Platelet (test code = Platelet) 302 133-450 [facility] TylerAnqiqldCAQHJCJLHE2673-98-41 00:20:00 Test Item Value Reference Range Interpretation Comments MPV (test code = MPV) 8.9 7.4-10.4 [facility] TylerOvvobplERFISDHWUI7717-48-22 00:20:00 Test Item Value Reference Range Interpretation Comments Sed Rate (test code = 17 See_Comment [Auto mated message] The Sed Rate) system which ge nerated this result transmit lester reference range : <=15. The reference range was not used to interpr et this result as adny l/abnormal. [facility] TylerPysfwcjBAKVGIPGIZ5361-07-99 00:20:00 Test Item Value Reference Range Interpretation Comments PT (test code = PT) 13.1 s 12.0-14.7 [facility] TylerUnmluhxGJCHCCOCQJ5743-02-34 00:20:00 Test Item Value Reference Range Interpretation Comments INR (test code = INR) 1.00 1 0.85-1.17 [place] 122332-04-09 00:20:00 Test Item Value Reference Range Interpretation Comments PTT (test code = PTT) 31.5 s 22.9-35.8 [facility] TylerWiqvvlgNXZOVNPDVG0117-09-96 00:20:00 Test Item Value Reference Range Interpretation Comments Segs (test code = Segs) 68.7 45.0-75.0 [facility] TylerYnhwbzqFISPLYHXWF8621-14-74 00:20:00 Test Item Value Reference Range Interpretation Comments Lymphocytes (test code = Lymphocytes) 19.6 20.0-40.0 [place] 122332-04-09 00:20:00 Test Item Value Reference Range Interpretation Comments Monocytes (test code = Monocytes) 9.4 2.0-12.0 [facility] TylerHmemkzhDVFKSEITRZ2610-93-49 00:20:00 Test Item Value Reference Range Interpretation Comments Eosinophils (test code = 1.4 See_Comment [A utomated message] The Eosinophils) system which ge nerated this result tra nsmitted reference range : <=4.0. The reference r boubacar was not used to int erpret this result as normal/abnormal . [facility] TylerGovptgdWQHSXFXQGU8771-10-35 00:20:00 Test Item Value Reference Range Interpretation Comments Basophils (test code = 0.9 See_Comment [Aut omated message] The Basophils) system which ge nerated this result tra nsmitted reference range : <=1.0. The reference r boubacar was not used to int erpret this result as normal/abnormal . [facility] TylerYqtsbpxOJMPQNJJWL4806-97-73 00:20:00 Test Item Value Reference Range Interpretation Comments Neutrophils # (test code = Neutrophils 6.9 1.5-8.1 #) [facility] TylerOxjzdlyUBDBDGKBHY8030-22-68 00:20:00 Test Item Value Reference Range Interpretation Comments Lymphocytes # (test code = Lymphocytes 2.0 1.0-5.5 #) [place] 122332-04-09 00:20:00 Test Item Value Reference Range Interpretation Comments Monocytes # (test code 1.0 See_Comment [Aut omated message] The = Monocytes #) system which generated this result tra nsmitted reference range : <=0.8. The reference r boubacar was not used to int erpret this result as normal/abnormal . [place] 122332-04-09 00:20:00 Test Item Value Reference Range Interpretation Comments Eosinophils # (test code 0.1 See_Comment [A utomated message] The = Eosinophils #) system whic h generated this result tra nsmitted reference range : <=0.5. The reference r boubacar was not used to int erpret this result as normal/abnormal . [facility] CampusWpxxpncYVXSEAQNKZ1793-75-15 00:20:00 Test Item Value Reference Range Interpretation Comments Basophils # (test code 0.1 See_Comment [Aut omated message] The = Basophils #) system which generated this result tra nsmitted reference range : <=0.2. The reference r boubacar was not used to int erpret this result as normal/abnormal . [facility]CgczcypXPRJBIHRND4875-73-85 00:20:00 Test Item Value Reference Range Interpretation Comments C-REACTIVE PROTEIN (test code = 13.2 C-REACTIVE PROTEIN) [facility] [employer] [id number] 00:20:00 Test Item Value Reference Range Interpretation Comments ABO/Rh (test code = ABO/Rh) AB POS [facility] [employer] [id number] 00:20:00 Test Item Value Reference Range Interpretation Comments Antibody Scrn (test Negative (10/20/21 7:20 code = Antibody Scrn) PM) [facility] [employer] [id number] 00:20:00 Test Item Value Reference Range Interpretation Comments Glucose Lvl (test code = Glucose Lvl) 74 70-99 [facility] [employer] [id number] 00:20:00 Test Item Value Reference Range Interpretation Comments BUN (test code = BUN) 15 7-22 [facility] [employer]2022-04-09 00:20:00 Test Item Value Reference Range Interpretation Comments Creatinine Lvl (test code = Creatinine 0.61 0.50-1.40 Lvl) [facility] [employer]2022-04-09 00:20:00 Test Item Value Reference Range Interpretation Comments Sodium Lvl (test code = Sodium Lvl) 139 135-145 [facility] [employer] [id number] 00:20:00 Test Item Value Reference Range Interpretation Comments Potassium Lvl (test code = Potassium 4.9 3.5-5.1 Lvl) [facility] [employer] [id number] 00:20:00 Test Item Value Reference Range Interpretation Comments Chloride Lvl (test code = Chloride Lvl) 105 95-109 [facility]2022-04-09 00:20:00 Test Item Value Reference Range Interpretation Comments CO2 (test code = CO2) 30 24-32 [place] 872842-04-09 00:20:00 Test Item Value Reference Range Interpretation Comments Calcium Lvl (test code = Calcium Lvl) 9.5 8.5-10.5 [place] 872842-04-09 00:20:00 Test Item Value Reference Range Interpretation Comments AGAP (test code = AGAP) 8.9 10.0-20.0 [facility]2022-04-09 00:20:00 Test Item Value Reference Range Interpretation Comments eGFR (test code = eGFR) 129 [facility]2022-04-09 00:20:00 Test Item Value Reference Range Interpretation Comments Lactic Acid Lvl (test code = Lactic 1.2 0.5-2.2 Acid Lvl) [facility]2022-04-09 00:20:00 Test Item Value Reference Range Interpretation Comments Procalcitonin Lvl (test 0.09 See_Comment [Au tomated message] code = Procalcitonin Lvl) Th e system which generated this result transmitted ref erence range: <=0.10. The reference range was not used to interpr et this result as normal/abnormal . [facility] TylerSkeqysxWOWWGZUFQJ4537-70-43 00:20:00 Test Item Value Reference Range Interpretation Comments WBC (test code = WBC) 10.1 3.7-10.4 [place] 122332-04-09 00:20:00 Test Item Value Reference Range Interpretation Comments RBC (test code = RBC) 5.14 4.70-6.10 [place] 122332-04-09 00:20:00 Test Item Value Reference Range Interpretation Comments Hgb (test code = Hgb) 15.5 14.0-18.0 [place] 122332-04-09 00:20:00 Test Item Value Reference Range Interpretation Comments Hct (test code = Hct) 46.5 42.0-54.0 [place] 122332-04-09 00:20:00 Test Item Value Reference Range Interpretation Comments MCV (test code = MCV) 90.5 80.0-94.0 [facility] TylerCpfqughJBHWFODTEO1483-44-39 00:20:00 Test Item Value Reference Range Interpretation Comments MCH (test code = MCH) 30.1 pg 27.0-31.0 [facility] TylerRwehhwvMVXYQDCYOH8112-48-83 00:20:00 Test Item Value Reference Range Interpretation Comments MCHC (test code = MCHC) 33.3 32.0-36.0 [facility] TylerLogstjlGWYVDFEGWV1040-93-70 00:20:00 Test Item Value Reference Range Interpretation Comments RDW (test code = RDW) 15.7 11.5-14.5 [facility] TylerXzosgbgDISIMWYBLF7650-16-72 00:20:00 Test Item Value Reference Range Interpretation Comments Platelet (test code = Platelet) 302 133-450 [facility] TylerJkmrmgeZAZRNWFRCQ1330-32-41 00:20:00 Test Item Value Reference Range Interpretation Comments MPV (test code = MPV) 8.9 7.4-10.4 [facility] TylerWcjxamtKOSMJIYTLY3014-23-12 00:20:00 Test Item Value Reference Range Interpretation Comments Sed Rate (test code = 17 See_Comment [Auto mated message] The Sed Rate) system which ge nerated this result transmit lester reference range : <=15. The reference range was not used to interpr et this result as dany l/abnormal. [facility] TylerSrzfrxvUHHIIHTUXJ9288-96-08 00:20:00 Test Item Value Reference Range Interpretation Comments PT (test code = PT) 13.1 s 12.0-14.7 [facility] TylerEtshocrEWBVXMMDRD6025-76-21 00:20:00 Test Item Value Reference Range Interpretation Comments INR (test code = INR) 1.00 1 0.85-1.17 [place] 122332-04-09 00:20:00 Test Item Value Reference Range Interpretation Comments PTT (test code = PTT) 31.5 s 22.9-35.8 [place] 122332-04-09 00:20:00 Test Item Value Reference Range Interpretation Comments Segs (test code = Segs) 68.7 45.0-75.0 [place] 122332-04-09 00:20:00 Test Item Value Reference Range Interpretation Comments Lymphocytes (test code = Lymphocytes) 19.6 20.0-40.0 [place] 122332-04-09 00:20:00 Test Item Value Reference Range Interpretation Comments Monocytes (test code = Monocytes) 9.4 2.0-12.0 [place] 122332-04-09 00:20:00 Test Item Value Reference Range Interpretation Comments Eosinophils (test code = 1.4 See_Comment [A utomated message] The Eosinophils) system which ge nerated this result tra nsmitted reference range : <=4.0. The reference r boubacar was not used to int erpret this result as normal/abnormal . [place] 122332-04-09 00:20:00 Test Item Value Reference Range Interpretation Comments Basophils (test code = 0.9 See_Comment [Aut omated message] The Basophils) system which ge nerated this result tra nsmitted reference range : <=1.0. The reference r boubacar was not used to int erpret this result as normal/abnormal . [place] 122332-04-09 00:20:00 Test Item Value Reference Range Interpretation Comments Neutrophils # (test code = Neutrophils 6.9 1.5-8.1 #) [place] 122332-04-09 00:20:00 Test Item Value Reference Range Interpretation Comments Lymphocytes # (test code = Lymphocytes 2.0 1.0-5.5 #) [facility] TylerAubidlcMIWGDNCUFC5036-96-47 00:20:00 Test Item Value Reference Range Interpretation Comments Monocytes # (test code 1.0 See_Comment [Aut omated message] The = Monocytes #) system which generated this result tra nsmitted reference range : <=0.8. The reference r boubacar was not used to int erpret this result as normal/abnormal . [place] 122332-04-09 00:20:00 Test Item Value Reference Range Interpretation Comments Eosinophils # (test code 0.1 See_Comment [A utomated message] The = Eosinophils #) system whic h generated this result tra nsmitted reference range : <=0.5. The reference r boubacar was not used to int erpret this result as normal/abnormal . [place] 122332-04-09 00:20:00 Test Item Value Reference Range Interpretation Comments Basophils # (test code 0.1 See_Comment [Aut omated message] The = Basophils #) system which generated this result tra nsmitted reference range : <=0.2. The reference r boubacar was not used to int erpret this result as normal/abnormal . [facility] PtvmjhuZLMVMEAAHS4501-65-39 00:20:00 Test Item Value Reference Range Interpretation Comments C-REACTIVE PROTEIN (test code = 13.2 C-REACTIVE PROTEIN) [facility] [employer] [id number] 00:20:00 Test Item Value Reference Range Interpretation Comments ABO/Rh (test code = ABO/Rh) AB POS [facility] [employer] [id number] 00:20:00 Test Item Value Reference Range Interpretation Comments Antibody Scrn (test Negative (10/20/21 7:20 code = Antibody Scrn) PM) [facility] [employer] [id number] 00:20:00 Test Item Value Reference Range Interpretation Comments Glucose Lvl (test code = Glucose Lvl) 74 70-99 [facility] [employer] [id number] 00:20:00 Test Item Value Reference Range Interpretation Comments BUN (test code = BUN) 15 -22 [facility] [employer] [id number] 00:20:00 Test Item Value Reference Range Interpretation Comments Creatinine Lvl (test code = Creatinine 0.61 0.50-1.40 Lvl) [facility] [employer] [id number] 00:20:00 Test Item Value Reference Range Interpretation Comments Sodium Lvl (test code = Sodium Lvl) 139 135-145 [facility] [employer] [id number] 00:20:00 Test Item Value Reference Range Interpretation Comments Potassium Lvl (test code = Potassium 4.9 3.5-5.1 Lvl) [facility] [employer] [id number] 00:20:00 Test Item Value Reference Range Interpretation Comments Chloride Lvl (test code = Chloride Lvl) 105 95-109 [facility] [employer] [id number] 00:20:00 Test Item Value Reference Range Interpretation Comments CO2 (test code = CO2) 30 24-32 [facility] [employer] [id number] 00:20:00 Test Item Value Reference Range Interpretation Comments Calcium Lvl (test code = Calcium Lvl) 9.5 8.5-10.5 [facility] [employer] [id number] 00:20:00 Test Item Value Reference Range Interpretation Comments AGAP (test code = AGAP) 8.9 10.0-20.0 [facility]2022-04-09 00:20:00 Test Item Value Reference Range Interpretation Comments eGFR (test code = eGFR) 129 [facility]2022-04-09 00:20:00 Test Item Value Reference Range Interpretation Comments Lactic Acid Lvl (test code = Lactic 1.2 0.5-2.2 Acid Lvl) [facility]2022-04-09 00:20:00 Test Item Value Reference Range Interpretation Comments Procalcitonin Lvl (test 0.09 See_Comment [Au tomated message] code = Procalcitonin Lvl) e system which generated this result transmitted ref erence range: <=0.10. The reference range was not used to interpr et this result as normal/abnormal . [place] 122332-04-09 00:20:00 Test Item Value Reference Range Interpretation Comments WBC (test code = WBC) 10.1 3.7-10.4 [place] 122332-04-09 00:20:00 Test Item Value Reference Range Interpretation Comments RBC (test code = RBC) 5.14 4.70-6.10 [place] 122332-04-09 00:20:00 Test Item Value Reference Range Interpretation Comments Hgb (test code = Hgb) 15.5 14.0-18.0 [place] 122332-04-09 00:20:00 Test Item Value Reference Range Interpretation Comments Hct (test code = Hct) 46.5 42.0-54.0 [place] 122332-04-09 00:20:00 Test Item Value Reference Range Interpretation Comments MCV (test code = MCV) 90.5 80.0-94.0 [place] 122332-04-09 00:20:00 Test Item Value Reference Range Interpretation Comments MCH (test code = MCH) 30.1 pg 27.0-31.0 [place] 122332-04-09 00:20:00 Test Item Value Reference Range Interpretation Comments MCHC (test code = MCHC) 33.3 32.0-36.0 [place] [address]-04-09 00:20:00 Test Item Value Reference Range Interpretation Comments RDW (test code = RDW) 15.7 11.5-14.5 [place] 122332-04-09 00:20:00 Test Item Value Reference Range Interpretation Comments Platelet (test code = Platelet) 302 133-450 [facility]krkbmzHPRPKDVXBK5119-36-49 00:20:00 Test Item Value Reference Range Interpretation Comments MPV (test code = MPV) 8.9 7.4-10.4 [place] 122332-04-09 00:20:00 Test Item Value Reference Range Interpretation Comments Sed Rate (test code = 17 See_Comment [Auto mated message] The Sed Rate) system which ge nerated this result transmit lester reference range : <=15. The reference range was not used to interpr et this result as dany l/abnormal. [facility] TylerMjfucguKJYDMGOCLO4983-87-68 00:20:00 Test Item Value Reference Range Interpretation Comments PT (test code = PT) 13.1 s 12.0-14.7 [place] 122332-04-09 00:20:00 Test Item Value Reference Range Interpretation Comments INR (test code = INR) 1.00 1 0.85-1.17 [place] 122332-04-09 00:20:00 Test Item Value Reference Range Interpretation Comments PTT (test code = PTT) 31.5 s 22.9-35.8 [place] 122332-04-09 00:20:00 Test Item Value Reference Range Interpretation Comments Segs (test code = Segs) 68.7 45.0-75.0 [place] 122332-04-09 00:20:00 Test Item Value Reference Range Interpretation Comments Lymphocytes (test code = Lymphocytes) 19.6 20.0-40.0 [place] 122332-04-09 00:20:00 Test Item Value Reference Range Interpretation Comments Monocytes (test code = Monocytes) 9.4 2.0-12.0 [place] 122332-04-09 00:20:00 Test Item Value Reference Range Interpretation Comments Eosinophils (test code = 1.4 See_Comment [A utomated message] The Eosinophils) system which ge nerated this result tra nsmitted reference range : <=4.0. The reference r boubacar was not used to int erpret this result as normal/abnormal . [facility] TylerElrundxFZOXNOWFOW2755-15-64 00:20:00 Test Item Value Reference Range Interpretation Comments Basophils (test code = 0.9 See_Comment [Aut omated message] The Basophils) system which ge nerated this result tra nsmitted reference range : <=1.0. The reference r boubacar was not used to int erpret this result as normal/abnormal . [facility] TylerFztnjjoNIEKYJDKTQ0959-87-12 00:20:00 Test Item Value Reference Range Interpretation Comments Neutrophils # (test code = Neutrophils 6.9 1.5-8.1 #) [facility] TylerGfpawnfMXPACJWHDO6213-43-48 00:20:00 Test Item Value Reference Range Interpretation Comments Lymphocytes # (test code = Lymphocytes 2.0 1.0-5.5 #) [facility] TylerPexbesbYCLHKCSXXM8945-18-36 00:20:00 Test Item Value Reference Range Interpretation Comments Monocytes # (test code 1.0 See_Comment [Aut omated message] The = Monocytes #) system which generated this result tra nsmitted reference range : <=0.8. The reference r boubacar was not used to int erpret this result as normal/abnormal . [facility] TylerDjczgyyQCEDCOVRCN9403-69-06 00:20:00 Test Item Value Reference Range Interpretation Comments Eosinophils # (test code 0.1 See_Comment [A utomated message] The = Eosinophils #) system whic h generated this result tra nsmitted reference range : <=0.5. The reference r boubacar was not used to int erpret this result as normal/abnormal . [facility] TylerEerllhaUYSGOTTKDA1132-58-06 00:20:00 Test Item Value Reference Range Interpretation Comments Basophils # (test code 0.1 See_Comment [Aut omated message] The = Basophils #) system which generated this result tra nsmitted reference range : <=0.2. The reference r boubacar was not used to int erpret this result as normal/abnormal . [facility] CampusXkdwhxcTVGMZPDAZJ5810-75-35 00:20:00 Test Item Value Reference Range Interpretation Comments C-REACTIVE PROTEIN (test code = 13.2 C-REACTIVE PROTEIN) [facility]WE[facility] [employer] [id number] 00:20:00 Test Item Value Reference Range Interpretation Comments ABO/Rh (test code = ABO/Rh) [facility] [id number] 00:20:00 Test Item Value Reference Range Interpretation Comments Antibody Scrn (test Negative (10/20/21 7:20 code = Antibody Scrn) PM) [facility]2022-04-09 00:20:00 Test Item Value Reference Range Interpretation Comments Glucose Lvl (test code = Glucose Lvl) 74 70-99 [place] 872842-04-09 00:20:00 Test Item Value Reference Range Interpretation Comments BUN (test code = BUN) 15 7-22 [place] 872842-04-09 00:20:00 Test Item Value Reference Range Interpretation Comments Creatinine Lvl (test code = Creatinine 0.61 0.50-1.40 Lvl) [place] 872842-04-09 00:20:00 Test Item Value Reference Range Interpretation Comments Sodium Lvl (test code = Sodium Lvl) 139 135-145 [place] 872842-04-09 00:20:00 Test Item Value Reference Range Interpretation Comments Potassium Lvl (test code = Potassium 4.9 3.5-5.1 Lvl) [place] 872842-04-09 00:20:00 Test Item Value Reference Range Interpretation Comments Chloride Lvl (test code = Chloride Lvl) 105 95-109 [place] 872842-04-09 00:20:00 Test Item Value Reference Range Interpretation Comments CO2 (test code = CO2) 30 24-32 [place] 872842-04-09 00:20:00 Test Item Value Reference Range Interpretation Comments Calcium Lvl (test code = Calcium Lvl) 9.5 8.5-10.5 [place] 872842-04-09 00:20:00 Test Item Value Reference Range Interpretation Comments AGAP (test code = AGAP) 8.9 10.0-20.0 [facility]2022-04-09 00:20:00 Test Item Value Reference Range Interpretation Comments eGFR (test code = eGFR) 129 [place] 872842-04-09 00:20:00 Test Item Value Reference Range Interpretation Comments Lactic Acid Lvl (test code = Lactic 1.2 0.5-2.2 Acid Lvl) [place] 872842-04-09 00:20:00 Test Item Value Reference Range Interpretation Comments Procalcitonin Lvl (test 0.09 See_Comment [Au tomated message] code = Procalcitonin Lvl) Th e system which generated this result transmitted ref erence range: <=0.10. The reference range was not used to interpr et this result as normal/abnormal . [facility] TylerGwhlsztBGUFYTEXWI1768-29-29 00:20:00 Test Item Value Reference Range Interpretation Comments WBC (test code = WBC) 10.1 3.7-10.4 [place] 122332-04-09 00:20:00 Test Item Value Reference Range Interpretation Comments RBC (test code = RBC) 5.14 4.70-6.10 [place] 122332-04-09 00:20:00 Test Item Value Reference Range Interpretation Comments Hgb (test code = Hgb) 15.5 14.0-18.0 [place] [address]-04-09 00:20:00 Test Item Value Reference Range Interpretation Comments Hct (test code = Hct) 46.5 42.0-54.0 [place] [address]-04-09 00:20:00 Test Item Value Reference Range Interpretation Comments MCV (test code = MCV) 90.5 80.0-94.0 [place] 122332-04-09 00:20:00 Test Item Value Reference Range Interpretation Comments MCH (test code = MCH) 30.1 pg 27.0-31.0 [place] 122332-04-09 00:20:00 Test Item Value Reference Range Interpretation Comments MCHC (test code = MCHC) 33.3 32.0-36.0 [place] 122332-04-09 00:20:00 Test Item Value Reference Range Interpretation Comments RDW (test code = RDW) 15.7 11.5-14.5 [place] 122332-04-09 00:20:00 Test Item Value Reference Range Interpretation Comments Platelet (test code = Platelet) 302 133-450 [facility] TylerMabjztbOACWRQUHOE8349-05-09 00:20:00 Test Item Value Reference Range Interpretation Comments MPV (test code = MPV) 8.9 7.4-10.4 [facility] TylerOxzduinGTAYDMZWLZ5658-16-04 00:20:00 Test Item Value Reference Range Interpretation Comments Sed Rate (test code = 17 See_Comment [Auto mated message] The Sed Rate) system which ge nerated this result transmit lester reference range : <=15. The reference range was not used to interpr et this result as dany l/abnormal. [facility] WITH [id number] 04:47:32 Test Item Value Reference Range Interpretation [...] RDW-SD (test code = 45.7 fL 38.5-51.6 16923-5) RDW-CV (test code = 14.6 % 12.1-15.4 788-0) PLT (test code = See_Comment [Automated 777-3) message] The sy stem which generated this result transmitted reference range : 150 - 328 10*3/ ?L. The reference r boubacar was not used to interpret this result as normal/abnormal . MPV (test code = 11.0 fL 9.8-13.0 05264-8) NRBC/100 WBC (test See_Comment [Automat ed code = 0446261731) message] The system which generated this result transmitted reference range : 0.0 - 10.0 /100 WBCs. The refer ence range was not u sed to interpret th is result as normal/abnormal . NRBC x10^3 (test code <0.01 See_Comment [Auto mated = [id number]) message] The s ystem which generated this result transmitted reference range : 10*3/?L. The reference range was not used to interpret this result as normal/abnormal . GRAN MAT (NEUT) % 72.2 % (test code = 770-8) IMM GRAN % (test code 0.60 % = 1059908571) LYMPH % (test code = 17.7 % 736-9) MONO % (test code = 7.4 % 5905-5) EOS % (test code = 1.8 % 713-8) BASO % (test code = 0.3 % 706-2) GRAN MAT x10^3(ANC) 9.09 10*3/uL 1.99-6.95 H (test code = 3541239910) IMM GRAN x10^3 (test 0.07 10*3/uL 0.00-0.06 H code = 8561410699) LYMPH x10^3 (test code 2.22 10*3/uL 1.09-3.23 = 731-0) MONO x10^3 (test code 0.93 10*3/uL 0.36-1.02 = 742-7) EOS x10^3 (test code = 0.22 10*3/uL 0.06-0.53 711-2) BASO x10^3 (test code 0.04 10*3/uL 0.01-0.09 = 704-7) Lab Interpretation Abnormal (test code = 28997-6) [facility]. METABOLIC PANEL (60056)2021-10-16 04:36:41 Test Item Value Reference Range Interpretation Comments NA (test code = 138 mmol/L 135-145 4948151299) K (test code = 4.6 mmol/L 3.5-5.0 2147746718) CL (test code = 105 mmol/L 98-108 9262281604) CO2 TOTAL (test code = 21 mmol/L 23-31 L 8911308638) AGAP (test code = 2-16 3812629154) BUN (test code = 13 mg/dL 7-23 0637145192) GLUCOSE (test code = 167 mg/dL 70-110 H 1775196365) CREATININE (test code = 0.48 mg/dL 0.60-1.25 L 0226638239) TOTAL BILI (test code = 0.8 mg/dL 0.1-1.2 1670629055) CALCIUM (test code = 9.3 mg/dL 8.6-10.6 1840785729) T PROTEIN (test code = 7.6 g/dL 6.3-8.2 0982569478) ALBUMIN (test code = 4.2 g/dL 3.5-5.0 9431991587) ALK PHOS (test code = 98 U/L 34-122 7223180758) ALTv (test code = 71 U/L 5-50 H 2-6) AST(SGOT) (test code = 36 U/L 13-40 3390648322) eGFR (test code = mL/min/1.73m2 3523326238) ARPITA (test code = ARPITA) Association of [...] tests). Lab Interpretation Abnormal (test code = 96959-0) [facility] Test Item Value Reference Range Interpretation Comments MAGNESIUM (test code = 0462751788) 1.6 mg/dL 1.7-2.4 L Lab Interpretation (test code = Abnormal 05927-8) [facility] BANK [id number] 07:52:00 Test Item Value Reference Range Interpretation Comments ABO/Rh (test code = ABO/Rh) AB POS [facility] [id number] 07:52:00 Test Item Value Reference Range Interpretation Comments Antibody Scrn (test Negative (10/09/21 2:52 code = Antibody Scrn) AM) [facility] [id number] 07:52:00 Test Item Value Reference Range Interpretation Comments Glucose Lvl (test code = Glucose Lvl) 291 70-99 [facility] [id number] 07:52:00 Test Item Value Reference Range Interpretation Comments BUN (test code = BUN) 16 - [facility]2022-03-28 07:52:00 Test Item Value Reference Range Interpretation Comments Creatinine Lvl (test code = Creatinine 0.83 0.50-1.40 Lvl) [facility] [id number] 07:52:00 Test Item Value Reference Range Interpretation Comments Sodium Lvl (test code = Sodium Lvl) 138 135-145 [facility] [id number] 07:52:00 Test Item Value Reference Range Interpretation Comments Potassium Lvl (test code = Potassium 4.7 3.5-5.1 Lvl) [facility] [id number] 07:52:00 Test Item Value Reference Range Interpretation Comments Chloride Lvl (test code = Chloride Lvl) 113 95-109 [facility] [id number] 07:52:00 Test Item Value Reference Range Interpretation Comments CO2 (test code = CO2) 18 24-32 [facility] [id number] 07:52:00 Test Item Value Reference Range Interpretation Comments AGAP (test code = AGAP) 11.7 10.0-20.0 [facility] [id number] 07:52:00 Test Item Value Reference Range Interpretation Comments Calcium Lvl (test code = Calcium Lvl) 9.4 8.5-10.5 [facility] JBWOZ7063-02-32 07:52:00 Test Item Value Reference Range Interpretation Comments eGFR (test code = eGFR) 113 [facility]PV[facility] 07:52:00 Test Item Value Reference Range Interpretation Comments WBC (test code = WBC) 5.5 3.7-10.4 [facility]zoghufQQIJEJQJSW4226-46-85 07:52:00 Test Item Value Reference Range Interpretation Comments RBC (test code = RBC) 5.53 4.70-6.10 [facility] CampusYhovwclCMEVOYLVOQ5060-58-27 07:52:00 Test Item Value Reference Range Interpretation Comments Hgb (test code = Hgb) 16.3 14.0-18.0 [facility] CampusQpwnpzaNWUXBGSZQG8025-49-26 07:52:00 Test Item Value Reference Range Interpretation Comments Hct (test code = Hct) 50.5 42.0-54.0 [facility]zibnfrIBLQHXEHUA3495-98-58 07:52:00 Test Item Value Reference Range Interpretation Comments MCV (test code = MCV) 91.3 80.0-94.0 [facility] HospitalMderlcoPSZJJZIDDN2238-07-69 07:52:00 Test Item Value Reference Range Interpretation Comments MCH (test code = MCH) 29.5 pg 27.0-31.0 [facility] CampusAedxeomUTOSZHHKYE3718-86-59 07:52:00 Test Item Value Reference Range Interpretation Comments MCHC (test code = MCHC) 32.3 32.0-36.0 [facility] HospitalKlocvlyRIMKWAPBCY7171-82-78 07:52:00 Test Item Value Reference Range Interpretation Comments RDW (test code = RDW) 15.4 11.5-14.5 [facility] HospitalXudxzzgDDZNEYJOQQ8720-32-23 07:52:00 Test Item Value Reference Range Interpretation Comments Platelet (test code = Platelet) 210 133-450 [facility] CampusLzowqrrOVFDFWLRDV8120-19-38 07:52:00 Test Item Value Reference Range Interpretation Comments MPV (test code = MPV) 9.3 7.4-10.4 [facility] [employer] BANK KGPEIUN4518-06-55 07:52:00 Test Item Value Reference Range Interpretation Comments ABO/Rh (test code = ABO/Rh) AB POS [facility] [employer] BANK [id number] 07:52:00 Test Item Value Reference Range Interpretation Comments Antibody Scrn (test Negative (10/09/21 2:52 code = Antibody Scrn) AM) [place] 872842-03-28 07:52:00 Test Item Value Reference Range Interpretation Comments Glucose Lvl (test code = Glucose Lvl) 291 70-99 [place] [address]-03-28 07:52:00 Test Item Value Reference Range Interpretation Comments BUN (test code = BUN) 16 7-22 [place] 872842-03-28 07:52:00 Test Item Value Reference Range Interpretation Comments Creatinine Lvl (test code = Creatinine 0.83 0.50-1.40 Lvl) [place] 872842-03-28 07:52:00 Test Item Value Reference Range Interpretation Comments Sodium Lvl (test code = Sodium Lvl) 138 135-145 [place] 872842-03-28 07:52:00 Test Item Value Reference Range Interpretation Comments Potassium Lvl (test code = Potassium 4.7 3.5-5.1 Lvl) [place] 872842-03-28 07:52:00 Test Item Value Reference Range Interpretation Comments Chloride Lvl (test code = Chloride Lvl) 113 95-109 [place] 872842-03-28 07:52:00 Test Item Value Reference Range Interpretation Comments CO2 (test code = CO2) 18 24-32 [place] 872842-03-28 07:52:00 Test Item Value Reference Range Interpretation Comments AGAP (test code = AGAP) 11.7 10.0-20.0 [place] 872842-03-28 07:52:00 Test Item Value Reference Range Interpretation Comments Calcium Lvl (test code = Calcium Lvl) 9.4 8.5-10.5 [place] 872842-03-28 07:52:00 Test Item Value Reference Range Interpretation Comments eGFR (test code = eGFR) 113 [place] 122332-03-28 07:52:00 Test Item Value Reference Range Interpretation Comments WBC (test code = WBC) 5.5 3.7-10.4 [place] [address]-03-28 07:52:00 Test Item Value Reference Range Interpretation Comments RBC (test code = RBC) 5.53 4.70-6.10 [place] [address]-03-28 07:52:00 Test Item Value Reference Range Interpretation Comments Hgb (test code = Hgb) 16.3 14.0-18.0 [facility] AappuquFLCGSJZDNG7455-48-87 07:52:00 Test Item Value Reference Range Interpretation Comments Hct (test code = Hct) 50.5 42.0-54.0 [facility] NnkejzwBJMYKTDMKA0601-90-80 07:52:00 Test Item Value Reference Range Interpretation Comments MCV (test code = MCV) 91.3 80.0-94.0 [facility] ZkaxmtgOLEWKIHTXB7777-75-58 07:52:00 Test Item Value Reference Range Interpretation Comments MCH (test code = MCH) 29.5 pg 27.0-31.0 [facility] RvlfsjyFQCQYSPFWW8751-24-88 07:52:00 Test Item Value Reference Range Interpretation Comments MCHC (test code = MCHC) 32.3 32.0-36.0 [facility] CaizczeLZDITJSRWY6552-18-11 07:52:00 Test Item Value Reference Range Interpretation Comments RDW (test code = RDW) 15.4 11.5-14.5 [facility] XpwwzczRYWBOPKUKS6053-29-34 07:52:00 Test Item Value Reference Range Interpretation Comments Platelet (test code = Platelet) 210 133-450 [facility] HospitalVbfzuykSNNVAZWACB0040-49-38 07:52:00 Test Item Value Reference Range Interpretation Comments MPV (test code = MPV) 9.3 7.4-10.4 [facility] [employer] QWVHOJQ6595-20-40 07:52:00 Test Item Value Reference Range Interpretation Comments ABO/Rh (test code = ABO/Rh) AB POS [facility] [employer] [id number] 07:52:00 Test Item Value Reference Range Interpretation Comments Antibody Scrn (test Negative (10/09/21 2:52 code = Antibody Scrn) AM) [facility] [employer] [id number] 07:52:00 Test Item Value Reference Range Interpretation Comments Glucose Lvl (test code = Glucose Lvl) 291 70-99 [facility] [employer] [id number] 07:52:00 Test Item Value Reference Range Interpretation Comments BUN (test code = BUN) 16 - [facility] [employer] [id number] 07:52:00 Test Item Value Reference Range Interpretation Comments Creatinine Lvl (test code = Creatinine 0.83 0.50-1.40 Lvl) [facility] [employer] [id number] 07:52:00 Test Item Value Reference Range Interpretation Comments Sodium Lvl (test code = Sodium Lvl) 138 135-145 [place] 872842-03-28 07:52:00 Test Item Value Reference Range Interpretation Comments Potassium Lvl (test code = Potassium 4.7 3.5-5.1 Lvl) [place] 872842-03-28 07:52:00 Test Item Value Reference Range Interpretation Comments Chloride Lvl (test code = Chloride Lvl) 113 95-109 [place] 872842-03-28 07:52:00 Test Item Value Reference Range Interpretation Comments CO2 (test code = CO2) 18 24-32 [place] 872842-03-28 07:52:00 Test Item Value Reference Range Interpretation Comments AGAP (test code = AGAP) 11.7 10.0-20.0 [place] [address]-03-28 07:52:00 Test Item Value Reference Range Interpretation Comments Calcium Lvl (test code = Calcium Lvl) 9.4 8.5-10.5 [place] 872842-03-28 07:52:00 Test Item Value Reference Range Interpretation Comments eGFR (test code = eGFR) 113 [place] [address]-03-28 07:52:00 Test Item Value Reference Range Interpretation Comments WBC (test code = WBC) 5.5 3.7-10.4 [place] 122332-03-28 07:52:00 Test Item Value Reference Range Interpretation Comments RBC (test code = RBC) 5.53 4.70-6.10 [place] [address]-03-28 07:52:00 Test Item Value Reference Range Interpretation Comments Hgb (test code = Hgb) 16.3 14.0-18.0 [place] [address]-03-28 07:52:00 Test Item Value Reference Range Interpretation Comments Hct (test code = Hct) 50.5 42.0-54.0 [place] [address]-03-28 07:52:00 Test Item Value Reference Range Interpretation Comments MCV (test code = MCV) 91.3 80.0-94.0 [place] [address]-03-28 07:52:00 Test Item Value Reference Range Interpretation Comments MCH (test code = MCH) 29.5 pg 27.0-31.0 [facility]wbrAYPQQRKGWQ8518-83-82 07:52:00 Test Item Value Reference Range Interpretation Comments MCHC (test code = MCHC) 32.3 32.0-36.0 [facility] DzcxidyMOEBBJRUCM3263-49-89 07:52:00 Test Item Value Reference Range Interpretation Comments RDW (test code = RDW) 15.4 11.5-14.5 [facility] XkghvhkPSHRDSCIBW5809-79-27 07:52:00 Test Item Value Reference Range Interpretation Comments Platelet (test code = Platelet) 210 133-450 [facility]7900[facility]76 07:52:00 Test Item Value Reference Range Interpretation Comments MPV (test code = MPV) 9.3 7.4-10.4 [employer] [id number] 07:52:00 Test Item Value Reference Range Interpretation Comments ABO/Rh (test code = ABO/Rh) AB POS [facility] [employer] [id number] 07:52:00 Test Item Value Reference Range Interpretation Comments Antibody Scrn (test Negative (10/09/21 2:52 code = Antibody Scrn) AM) [employer] [id number] 07:52:00 Test Item Value Reference Range Interpretation Comments Glucose Lvl (test code = Glucose Lvl) 291 70-99 [facility] [employer] [id number] 07:52:00 Test Item Value Reference Range Interpretation Comments BUN (test code = BUN) 16 7-22 [facility] [employer] [id number] 07:52:00 Test Item Value Reference Range Interpretation Comments Creatinine Lvl (test code = Creatinine 0.83 0.50-1.40 Lvl) [employer]2022-03-28 07:52:00 Test Item Value Reference Range Interpretation Comments Sodium Lvl (test code = Sodium Lvl) 138 135-145 [employer]2022-03-28 07:52:00 Test Item Value Reference Range Interpretation Comments Potassium Lvl (test code = Potassium 4.7 3.5-5.1 Lvl) [employer] [id number] 07:52:00 Test Item Value Reference Range Interpretation Comments Chloride Lvl (test code = Chloride Lvl) 113 95-109 [employer] [id number] 07:52:00 Test Item Value Reference Range Interpretation Comments CO2 (test code = CO2) 18 24-32 [facility]2022-03-28 07:52:00 Test Item Value Reference Range Interpretation Comments AGAP (test code = AGAP) 11.7 10.0-20.0 [facility]2022-03-28 07:52:00 Test Item Value Reference Range Interpretation Comments Calcium Lvl (test code = Calcium Lvl) 9.4 8.5-10.5 [facility]2022-03-28 07:52:00 Test Item Value Reference Range Interpretation Comments eGFR (test code = eGFR) 113 [facility]EyhcqdxRWBZBMFYRT9461-76-21 07:52:00 Test Item Value Reference Range Interpretation Comments WBC (test code = WBC) 5.5 3.7-10.4 [facility] TylerGenqwdkWIZZHJXKTF2501-57-51 07:52:00 Test Item Value Reference Range Interpretation Comments RBC (test code = RBC) 5.53 4.70-6.10 [facility] TylerUddpdiwOZZCWGTAJH8571-38-94 07:52:00 Test Item Value Reference Range Interpretation Comments Hgb (test code = Hgb) 16.3 14.0-18.0 [facility] TylerZkffboxHTKMLYYSRV1530-44-98 07:52:00 Test Item Value Reference Range Interpretation Comments Hct (test code = Hct) 50.5 42.0-54.0 [facility] TylerRtjufscEPHNXGYSTA5575-80-66 07:52:00 Test Item Value Reference Range Interpretation Comments MCV (test code = MCV) 91.3 80.0-94.0 [facility] TylerTxwelxtYJPIZKGQWO8657-78-59 07:52:00 Test Item Value Reference Range Interpretation Comments MCH (test code = MCH) 29.5 pg 27.0-31.0 [facility] TylerNlkxrpuNAQCXONVMG3690-25-44 07:52:00 Test Item Value Reference Range Interpretation Comments MCHC (test code = MCHC) 32.3 32.0-36.0 [facility] TylerVghdhevWFZQNVPVZU4493-46-18 07:52:00 Test Item Value Reference Range Interpretation Comments RDW (test code = RDW) 15.4 11.5-14.5 [facility] TylerCitydcjVQIKEGHVTK7312-19-75 07:52:00 Test Item Value Reference Range Interpretation Comments Platelet (test code = Platelet) 210 133-450 [place] 122332-03-28 07:52:00 Test Item Value Reference Range Interpretation Comments MPV (test code = MPV) 9.3 7.4-10.4 [facility] [id number] 07:52:00 Test Item Value Reference Range Interpretation Comments ABO/Rh (test code = ABO/Rh) AB POS [facility] [id number] 07:52:00 Test Item Value Reference Range Interpretation Comments Antibody Scrn (test Negative (10/09/21 2:52 code = Antibody Scrn) AM) [facility] CorpCAROMONT [id number] 07:52:00 Test Item Value Reference Range Interpretation Comments Glucose Lvl (test code = Glucose Lvl) 291 70-99 [facility] [id number] 07:52:00 Test Item Value Reference Range Interpretation Comments BUN (test code = BUN) 16 - [facility] CorpCAROMONT [id number] 07:52:00 Test Item Value Reference Range Interpretation Comments Creatinine Lvl (test code = Creatinine 0.83 0.50-1.40 Lvl) [facility] [id number] 07:52:00 Test Item Value Reference Range Interpretation Comments Sodium Lvl (test code = Sodium Lvl) 138 135-145 [facility] [id number] 07:52:00 Test Item Value Reference Range Interpretation Comments Potassium Lvl (test code = Potassium 4.7 3.5-5.1 Lvl) [facility] [id number] 07:52:00 Test Item Value Reference Range Interpretation Comments Chloride Lvl (test code = Chloride Lvl) 113 95-109 [facility] [id number] 07:52:00 Test Item Value Reference Range Interpretation Comments CO2 (test code = CO2) 18 24-32 [facility] [id number] 07:52:00 Test Item Value Reference Range Interpretation Comments AGAP (test code = AGAP) 11.7 10.0-20.0 [facility] [id number] 07:52:00 Test Item Value Reference Range Interpretation Comments Calcium Lvl (test code = Calcium Lvl) 9.4 8.5-10.5 [facility] [id number] 07:52:00 Test Item Value Reference Range Interpretation Comments eGFR (test code = eGFR) 113 [facility] TylerQyfgrihGMIBNEFYPB9500-80-97 07:52:00 Test Item Value Reference Range Interpretation Comments WBC (test code = WBC) 5.5 3.7-10.4 [facility] TylerTqupjxnWHRKJETRIP5994-10-18 07:52:00 Test Item Value Reference Range Interpretation Comments RBC (test code = RBC) 5.53 4.70-6.10 [facility]KCQBSBTBNL3686[facility]-69 07:52:00 Test Item Value Reference Range Interpretation Comments Hgb (test code = Hgb) 16.3 14.0-18.0 [facility]DrgdndpVNUXOXVQIA0480-00-22 07:52:00 Test Item Value Reference Range Interpretation Comments Hct (test code = Hct) 50.5 42.0-54.0 [facility]IoxkwgrXKXWPNWFWW9213-19-85 07:52:00 Test Item Value Reference Range Interpretation Comments MCV (test code = MCV) 91.3 80.0-94.0 [facility] CampusUliuzayPRXMBVMWNB6608-44-83 07:52:00 Test Item Value Reference Range Interpretation Comments MCH (test code = MCH) 29.5 pg 27.0-31.0 [facility] CampusZkqnrnjSOIUNDHXKU3496-24-39 07:52:00 Test Item Value Reference Range Interpretation Comments MCHC (test code = MCHC) 32.3 32.0-36.0 [facility] CampusHgztqvoWCDWHLYTMF4550-85-62 07:52:00 Test Item Value Reference Range Interpretation Comments RDW (test code = RDW) 15.4 11.5-14.5 [facility] CampusJdmbsisLDLIVIDROA4585-67-15 07:52:00 Test Item Value Reference Range Interpretation Comments Platelet (test code = Platelet) 210 133-450 [facility] CampusGxfjnmzYURRWLYVJH4288-04-36 07:52:00 Test Item Value Reference Range Interpretation Comments MPV (test code = MPV) 9.3 7.4-10.4 [facility] [employer] [id number] 07:52:00 Test Item Value Reference Range Interpretation Comments ABO/Rh (test code = ABO/Rh) AB POS [facility] [employer] [id number] 07:52:00 Test Item Value Reference Range Interpretation Comments Antibody Scrn (test Negative (10/09/21 2:52 code = Antibody Scrn) AM) [place] 872842-03-28 07:52:00 Test Item Value Reference Range Interpretation Comments Glucose Lvl (test code = Glucose Lvl) 291 70-99 [place] 872842-03-28 07:52:00 Test Item Value Reference Range Interpretation Comments BUN (test code = BUN) 16 7-22 [place] 872842-03-28 07:52:00 Test Item Value Reference Range Interpretation Comments Creatinine Lvl (test code = Creatinine 0.83 0.50-1.40 Lvl) [place] 872842-03-28 07:52:00 Test Item Value Reference Range Interpretation Comments Sodium Lvl (test code = Sodium Lvl) 138 135-145 [place] 872842-03-28 07:52:00 Test Item Value Reference Range Interpretation Comments Potassium Lvl (test code = Potassium 4.7 3.5-5.1 Lvl) [place] 872842-03-28 07:52:00 Test Item Value Reference Range Interpretation Comments Chloride Lvl (test code = Chloride Lvl) 113 95-109 [place] 872842-03-28 07:52:00 Test Item Value Reference Range Interpretation Comments CO2 (test code = CO2) 18 24-32 [place] 872842-03-28 07:52:00 Test Item Value Reference Range Interpretation Comments AGAP (test code = AGAP) 11.7 10.0-20.0 [place] 872842-03-28 07:52:00 Test Item Value Reference Range Interpretation Comments Calcium Lvl (test code = Calcium Lvl) 9.4 8.5-10.5 [place] 872842-03-28 07:52:00 Test Item Value Reference Range Interpretation Comments eGFR (test code = eGFR) 113 [place] 122332-03-28 07:52:00 Test Item Value Reference Range Interpretation Comments WBC (test code = WBC) 5.5 3.7-10.4 [place] 122332-03-28 07:52:00 Test Item Value Reference Range Interpretation Comments RBC (test code = RBC) 5.53 4.70-6.10 [place] 122332-03-28 07:52:00 Test Item Value Reference Range Interpretation Comments Hgb (test code = Hgb) 16.3 14.0-18.0 [place] [address]-03-28 07:52:00 Test Item Value Reference Range Interpretation Comments Hct (test code = Hct) 50.5 42.0-54.0 [place] 122332-03-28 07:52:00 Test Item Value Reference Range Interpretation Comments MCV (test code = MCV) 91.3 80.0-94.0 [place] [address]-03-28 07:52:00 Test Item Value Reference Range Interpretation Comments MCH (test code = MCH) 29.5 pg 27.0-31.0 [place] [address]-03-28 07:52:00 Test Item Value Reference Range Interpretation Comments MCHC (test code = MCHC) 32.3 32.0-36.0 [place] 122332-03-28 07:52:00 Test Item Value Reference Range Interpretation Comments RDW (test code = RDW) 15.4 11.5-14.5 [place] 122332-03-28 07:52:00 Test Item Value Reference Range Interpretation Comments Platelet (test code = Platelet) 210 133-450 [place] 122332-03-28 07:52:00 Test Item Value Reference Range Interpretation Comments MPV (test code = MPV) 9.3 7.4-10.4 [place] 872842-03-27 10:12:00 Test Item Value Reference Range Interpretation Comments Glucose Lvl (test code = Glucose Lvl) 115 70-99 [facility]2022-03-27 10:12:00 Test Item Value Reference Range Interpretation Comments BUN (test code = BUN) 18 7-22 [place] 872842-03-27 10:12:00 Test Item Value Reference Range Interpretation Comments Creatinine Lvl (test code = Creatinine 0.78 0.50-1.40 Lvl) [place] 872842-03-27 10:12:00 Test Item Value Reference Range Interpretation Comments Sodium Lvl (test code = Sodium Lvl) 138 135-145 [place] 872842-03-27 10:12:00 Test Item Value Reference Range Interpretation Comments Potassium Lvl (test code = Potassium 4.6 3.5-5.1 Lvl) [place] 872842-03-27 10:12:00 Test Item Value Reference Range Interpretation Comments Chloride Lvl (test code = Chloride Lvl) 111 95-109 [place] 872842-03-27 10:12:00 Test Item Value Reference Range Interpretation Comments CO2 (test code = CO2) 21 24-32 [place] 872842-03-27 10:12:00 Test Item Value Reference Range Interpretation Comments AGAP (test code = AGAP) 10.6 10.0-20.0 [place] 872842-03-27 10:12:00 Test Item Value Reference Range Interpretation Comments Calcium Lvl (test code = Calcium Lvl) 8.6 8.5-10.5 [place] 872842-03-27 10:12:00 Test Item Value Reference Range Interpretation Comments eGFR (test code = eGFR) 116 [place] 122332-03-27 10:12:00 Test Item Value Reference Range Interpretation Comments WBC (test code = WBC) 8.2 3.7-10.4 [place] 122332-03-27 10:12:00 Test Item Value Reference Range Interpretation Comments RBC (test code = RBC) 5.14 4.70-6.10 [place] 122332-03-27 10:12:00 Test Item Value Reference Range Interpretation Comments Hgb (test code = Hgb) 15.5 14.0-18.0 [place] 122332-03-27 10:12:00 Test Item Value Reference Range Interpretation Comments Hct (test code = Hct) 46.0 42.0-54.0 [place] [address]-03-27 10:12:00 Test Item Value Reference Range Interpretation Comments MCV (test code = MCV) 89.5 80.0-94.0 [place] [address]-03-27 10:12:00 Test Item Value Reference Range Interpretation Comments MCH (test code = MCH) 30.2 pg 27.0-31.0 [place] [address]-03-27 10:12:00 Test Item Value Reference Range Interpretation Comments MCHC (test code = MCHC) 33.8 32.0-36.0 [place] 122332-03-27 10:12:00 Test Item Value Reference Range Interpretation Comments RDW (test code = RDW) 15.3 11.5-14.5 [place] [address]-03-27 10:12:00 Test Item Value Reference Range Interpretation Comments Platelet (test code = Platelet) 358 133-450 [place] [address]-03-27 10:12:00 Test Item Value Reference Range Interpretation Comments MPV (test code = MPV) 8.3 7.4-10.4 [place] [address]-03-27 10:12:00 Test Item Value Reference Range Interpretation Comments Glucose Lvl (test code = Glucose Lvl) 115 70-99 [place] 872842-03-27 10:12:00 Test Item Value Reference Range Interpretation Comments BUN (test code = BUN) 18 7-22 [place] 872842-03-27 10:12:00 Test Item Value Reference Range Interpretation Comments Creatinine Lvl (test code = Creatinine 0.78 0.50-1.40 Lvl) [place] 872842-03-27 10:12:00 Test Item Value Reference Range Interpretation Comments Sodium Lvl (test code = Sodium Lvl) 138 135-145 [place] 872842-03-27 10:12:00 Test Item Value Reference Range Interpretation Comments Potassium Lvl (test code = Potassium 4.6 3.5-5.1 Lvl) [place] 872842-03-27 10:12:00 Test Item Value Reference Range Interpretation Comments Chloride Lvl (test code = Chloride Lvl) 111 95-109 [place] 872842-03-27 10:12:00 Test Item Value Reference Range Interpretation Comments CO2 (test code = CO2) 21 24-32 [place] 872842-03-27 10:12:00 Test Item Value Reference Range Interpretation Comments AGAP (test code = AGAP) 10.6 10.0-20.0 [place] [address]-03-27 10:12:00 Test Item Value Reference Range Interpretation Comments Calcium Lvl (test code = Calcium Lvl) 8.6 8.5-10.5 [place] 872842-03-27 10:12:00 Test Item Value Reference Range Interpretation Comments eGFR (test code = eGFR) 116 [place] 122332-03-27 10:12:00 Test Item Value Reference Range Interpretation Comments WBC (test code = WBC) 8.2 3.7-10.4 [place] 122332-03-27 10:12:00 Test Item Value Reference Range Interpretation Comments RBC (test code = RBC) 5.14 4.70-6.10 [place] 122332-03-27 10:12:00 Test Item Value Reference Range Interpretation Comments Hgb (test code = Hgb) 15.5 14.0-18.0 [place] [address]-03-27 10:12:00 Test Item Value Reference Range Interpretation Comments Hct (test code = Hct) 46.0 42.0-54.0 [place] [address]-03-27 10:12:00 Test Item Value Reference Range Interpretation Comments MCV (test code = MCV) 89.5 80.0-94.0 [place] [address]-03-27 10:12:00 Test Item Value Reference Range Interpretation Comments MCH (test code = MCH) 30.2 pg 27.0-31.0 [place] 122332-03-27 10:12:00 Test Item Value Reference Range Interpretation Comments MCHC (test code = MCHC) 33.8 32.0-36.0 [facility] TylerOhunyytQJPWQNEBQF6135-92-06 10:12:00 Test Item Value Reference Range Interpretation Comments RDW (test code = RDW) 15.3 11.5-14.5 [facility] TylerYocmrzvYSVZHHMJCS2293-97-00 10:12:00 Test Item Value Reference Range Interpretation Comments Platelet (test code = Platelet) 358 133-450 [facility] TylerFizzwptBGKUCSUNCZ0988-79-68 10:12:00 Test Item Value Reference Range Interpretation Comments MPV (test code = MPV) 8.3 7.4-10.4 [facility]2022-03-27 10:12:00 Test Item Value Reference Range Interpretation Comments Glucose Lvl (test code = Glucose Lvl) 115 70-99 [facility]2022-03-27 10:12:00 Test Item Value Reference Range Interpretation Comments BUN (test code = BUN) 18 7-22 [facility]2022-03-27 10:12:00 Test Item Value Reference Range Interpretation Comments Creatinine Lvl (test code = Creatinine 0.78 0.50-1.40 Lvl) [facility]2022-03-27 10:12:00 Test Item Value Reference Range Interpretation Comments Sodium Lvl (test code = Sodium Lvl) 138 135-145 [place] 872842-03-27 10:12:00 Test Item Value Reference Range Interpretation Comments Potassium Lvl (test code = Potassium 4.6 3.5-5.1 Lvl) [place] 872842-03-27 10:12:00 Test Item Value Reference Range Interpretation Comments Chloride Lvl (test code = Chloride Lvl) 111 95-109 [place] 872842-03-27 10:12:00 Test Item Value Reference Range Interpretation Comments CO2 (test code = CO2) 21 24-32 [place] 872842-03-27 10:12:00 Test Item Value Reference Range Interpretation Comments AGAP (test code = AGAP) 10.6 10.0-20.0 [place] [address]-03-27 10:12:00 Test Item Value Reference Range Interpretation Comments Calcium Lvl (test code = Calcium Lvl) 8.6 8.5-10.5 [place] 872842-03-27 10:12:00 Test Item Value Reference Range Interpretation Comments eGFR (test code = eGFR) 116 [place] [address]-03-27 10:12:00 Test Item Value Reference Range Interpretation Comments WBC (test code = WBC) 8.2 3.7-10.4 [place] [address]-03-27 10:12:00 Test Item Value Reference Range Interpretation Comments RBC (test code = RBC) 5.14 4.70-6.10 [place] [address]-03-27 10:12:00 Test Item Value Reference Range Interpretation Comments Hgb (test code = Hgb) 15.5 14.0-18.0 [place] [address]-03-27 10:12:00 Test Item Value Reference Range Interpretation Comments Hct (test code = Hct) 46.0 42.0-54.0 [place] [address]-03-27 10:12:00 Test Item Value Reference Range Interpretation Comments MCV (test code = MCV) 89.5 80.0-94.0 [place] [address]-03-27 10:12:00 Test Item Value Reference Range Interpretation Comments MCH (test code = MCH) 30.2 pg 27.0-31.0 [place] [address]-03-27 10:12:00 Test Item Value Reference Range Interpretation Comments MCHC (test code = MCHC) 33.8 32.0-36.0 [place] [address]-03-27 10:12:00 Test Item Value Reference Range Interpretation Comments RDW (test code = RDW) 15.3 11.5-14.5 [place] [address]-03-27 10:12:00 Test Item Value Reference Range Interpretation Comments Platelet (test code = Platelet) 358 133-450 [place] [address]-03-27 10:12:00 Test Item Value Reference Range Interpretation Comments MPV (test code = MPV) 8.3 7.4-10.4 [place] 872842-03-27 10:12:00 Test Item Value Reference Range Interpretation Comments Glucose Lvl (test code = Glucose Lvl) 115 70-99 [place] 872842-03-27 10:12:00 Test Item Value Reference Range Interpretation Comments BUN (test code = BUN) 18 7-22 [place] 872842-03-27 10:12:00 Test Item Value Reference Range Interpretation Comments Creatinine Lvl (test code = Creatinine 0.78 0.50-1.40 Lvl) [place] 872842-03-27 10:12:00 Test Item Value Reference Range Interpretation Comments Sodium Lvl (test code = Sodium Lvl) 138 135-145 [place] 872842-03-27 10:12:00 Test Item Value Reference Range Interpretation Comments Potassium Lvl (test code = Potassium 4.6 3.5-5.1 Lvl) [place] 872842-03-27 10:12:00 Test Item Value Reference Range Interpretation Comments Chloride Lvl (test code = Chloride Lvl) 111 95-109 [place] 872842-03-27 10:12:00 Test Item Value Reference Range Interpretation Comments CO2 (test code = CO2) 21 24-32 [place] 872842-03-27 10:12:00 Test Item Value Reference Range Interpretation Comments AGAP (test code = AGAP) 10.6 10.0-20.0 [place] 872842-03-27 10:12:00 Test Item Value Reference Range Interpretation Comments Calcium Lvl (test code = Calcium Lvl) 8.6 8.5-10.5 [facility]2022-03-27 10:12:00 Test Item Value Reference Range Interpretation Comments eGFR (test code = eGFR) 116 [facility] TylerIabttidVWVUDUMZQD9348-06-78 10:12:00 Test Item Value Reference Range Interpretation Comments WBC (test code = WBC) 8.2 3.7-10.4 [place] 122332-03-27 10:12:00 Test Item Value Reference Range Interpretation Comments RBC (test code = RBC) 5.14 4.70-6.10 [facility] TylerWtoaazbTEVLPPCCIC1213-94-02 10:12:00 Test Item Value Reference Range Interpretation Comments Hgb (test code = Hgb) 15.5 14.0-18.0 [place] [address]-03-27 10:12:00 Test Item Value Reference Range Interpretation Comments Hct (test code = Hct) 46.0 42.0-54.0 [place] 122332-03-27 10:12:00 Test Item Value Reference Range Interpretation Comments MCV (test code = MCV) 89.5 80.0-94.0 [place] 122332-03-27 10:12:00 Test Item Value Reference Range Interpretation Comments MCH (test code = MCH) 30.2 pg 27.0-31.0 [place] 122332-03-27 10:12:00 Test Item Value Reference Range Interpretation Comments MCHC (test code = MCHC) 33.8 32.0-36.0 [place] 122332-03-27 10:12:00 Test Item Value Reference Range Interpretation Comments RDW (test code = RDW) 15.3 11.5-14.5 [place] 122332-03-27 10:12:00 Test Item Value Reference Range Interpretation Comments Platelet (test code = Platelet) 358 133-450 [facility] TylerZxuxcmyYCUNJNBAGE4579-02-57 10:12:00 Test Item Value Reference Range Interpretation Comments MPV (test code = MPV) 8.3 7.4-10.4 [facility]2022-03-27 10:12:00 Test Item Value Reference Range Interpretation Comments Glucose Lvl (test code = Glucose Lvl) 115 70-99 [facility]2022-03-27 10:12:00 Test Item Value Reference Range Interpretation Comments BUN (test code = BUN) 18 7-22 [place] 872842-03-27 10:12:00 Test Item Value Reference Range Interpretation Comments Creatinine Lvl (test code = Creatinine 0.78 0.50-1.40 Lvl) [place] 872842-03-27 10:12:00 Test Item Value Reference Range Interpretation Comments Sodium Lvl (test code = Sodium Lvl) 138 135-145 [place] 872842-03-27 10:12:00 Test Item Value Reference Range Interpretation Comments Potassium Lvl (test code = Potassium 4.6 3.5-5.1 Lvl) [place] 872842-03-27 10:12:00 Test Item Value Reference Range Interpretation Comments Chloride Lvl (test code = Chloride Lvl) 111 95-109 [place] 872842-03-27 10:12:00 Test Item Value Reference Range Interpretation Comments CO2 (test code = CO2) 21 24-32 [place] 872842-03-27 10:12:00 Test Item Value Reference Range Interpretation Comments AGAP (test code = AGAP) 10.6 10.0-20.0 [place] 872842-03-27 10:12:00 Test Item Value Reference Range Interpretation Comments Calcium Lvl (test code = Calcium Lvl) 8.6 8.5-10.5 [place] 872842-03-27 10:12:00 Test Item Value Reference Range Interpretation Comments eGFR (test code = eGFR) 116 [place] 122332-03-27 10:12:00 Test Item Value Reference Range Interpretation Comments WBC (test code = WBC) 8.2 3.7-10.4 [place] [address]-03-27 10:12:00 Test Item Value Reference Range Interpretation Comments RBC (test code = RBC) 5.14 4.70-6.10 [place] 122332-03-27 10:12:00 Test Item Value Reference Range Interpretation Comments Hgb (test code = Hgb) 15.5 14.0-18.0 [place] 122332-03-27 10:12:00 Test Item Value Reference Range Interpretation Comments Hct (test code = Hct) 46.0 42.0-54.0 [place] [address]-03-27 10:12:00 Test Item Value Reference Range Interpretation Comments MCV (test code = MCV) 89.5 80.0-94.0 [place] [address]-03-27 10:12:00 Test Item Value Reference Range Interpretation Comments MCH (test code = MCH) 30.2 pg 27.0-31.0 [place] [address]-03-27 10:12:00 Test Item Value Reference Range Interpretation Comments MCHC (test code = MCHC) 33.8 32.0-36.0 [place] [address]-03-27 10:12:00 Test Item Value Reference Range Interpretation Comments RDW (test code = RDW) 15.3 11.5-14.5 [place] [address]-03-27 10:12:00 Test Item Value Reference Range Interpretation Comments Platelet (test code = Platelet) 358 133-450 [address]03-27 10:12:00 Test Item Value Reference Range Interpretation Comments MPV (test code = MPV) 8.3 7.4-10.4 [place] 872842-03-27 10:12:00 Test Item Value Reference Range Interpretation Comments Glucose Lvl (test code = Glucose Lvl) 115 70-99 [place] 872842-03-27 10:12:00 Test Item Value Reference Range Interpretation Comments BUN (test code = BUN) 18 7-22 [place] 872842-03-27 10:12:00 Test Item Value Reference Range Interpretation Comments Creatinine Lvl (test code = Creatinine 0.78 0.50-1.40 Lvl) [place] 872842-03-27 10:12:00 Test Item Value Reference Range Interpretation Comments Sodium Lvl (test code = Sodium Lvl) 138 135-145 [place] 872842-03-27 10:12:00 Test Item Value Reference Range Interpretation Comments Potassium Lvl (test code = Potassium 4.6 3.5-5.1 Lvl) [place] 872842-03-27 10:12:00 Test Item Value Reference Range Interpretation Comments Chloride Lvl (test code = Chloride Lvl) 111 95-109 [place] 872842-03-27 10:12:00 Test Item Value Reference Range Interpretation Comments CO2 (test code = CO2) 21 24-32 [facility]2022-03-27 10:12:00 Test Item Value Reference Range Interpretation Comments AGAP (test code = AGAP) 10.6 10.0-20.0 [facility]2022-03-27 10:12:00 Test Item Value Reference Range Interpretation Comments Calcium Lvl (test code = Calcium Lvl) 8.6 8.5-10.5 [facility]2022-03-27 10:12:00 Test Item Value Reference Range Interpretation Comments eGFR (test code = eGFR) 116 [id number] 10:12:00 Test Item Value Reference Range Interpretation Comments WBC (test code = WBC) 8.2 3.7-10.4 [place] 122332-03-27 10:12:00 Test Item Value Reference Range Interpretation Comments RBC (test code = RBC) 5.14 4.70-6.10 [place] 122332-03-27 10:12:00 Test Item Value Reference Range Interpretation Comments Hgb (test code = Hgb) 15.5 14.0-18.0 [place] 122332-03-27 10:12:00 Test Item Value Reference Range Interpretation Comments Hct (test code = Hct) 46.0 42.0-54.0 [place] 122332-03-27 10:12:00 Test Item Value Reference Range Interpretation Comments MCV (test code = MCV) 89.5 80.0-94.0 [place] [address]-03-27 10:12:00 Test Item Value Reference Range Interpretation Comments MCH (test code = MCH) 30.2 pg 27.0-31.0 [place] 122332-03-27 10:12:00 Test Item Value Reference Range Interpretation Comments MCHC (test code = MCHC) 33.8 32.0-36.0 [place] 122332-03-27 10:12:00 Test Item Value Reference Range Interpretation Comments RDW (test code = RDW) 15.3 11.5-14.5 [place] 122332-03-27 10:12:00 Test Item Value Reference Range Interpretation Comments Platelet (test code = Platelet) 358 133-450 [facility] [id number] 10:12:00 Test Item Value Reference Range Interpretation Comments MPV (test code = MPV) 8.3 7.4-10.4 [place] 872842-03-27 06:53:00 Test Item Value Reference Range Interpretation Comments Glucose Lvl (test code = Glucose Lvl) 167 70-99 [place] 872842-03-27 06:53:00 Test Item Value Reference Range Interpretation Comments BUN (test code = BUN) 16 02-02 [place] 872842-03-27 06:53:00 Test Item Value Reference Range Interpretation Comments Creatinine Lvl (test code = Creatinine 0.99 0.50-1.40 Lvl) [place] 872842-03-27 06:53:00 Test Item Value Reference Range Interpretation Comments Sodium Lvl (test code = Sodium Lvl) 141 135-145 [place] 872842-03-27 06:53:00 Test Item Value Reference Range Interpretation Comments Potassium Lvl (test code = Potassium 4.5 3.5-5.1 Lvl) [place] 872842-03-27 06:53:00 Test Item Value Reference Range Interpretation Comments Chloride Lvl (test code = Chloride Lvl) 111 95-109 [place] 872842-03-27 06:53:00 Test Item Value Reference Range Interpretation Comments CO2 (test code = CO2) - [facility]2022-03-27 06:53:00 Test Item Value Reference Range Interpretation Comments AGAP (test code = AGAP) 12.5 10.0-20.0 [place] 872842-03-27 06:53:00 Test Item Value Reference Range Interpretation Comments Calcium Lvl (test code = Calcium Lvl) 8.6 8.5-10.5 [place] 872842-03-27 06:53:00 Test Item Value Reference Range Interpretation Comments eGFR (test code = eGFR) 98 [place] 872842-03-27 06:53:00 Test Item Value Reference Range Interpretation Comments Glucose Lvl (test code = Glucose Lvl) 167 70-99 [facility]2022-03-27 06:53:00 Test Item Value Reference Range Interpretation Comments BUN (test code = BUN) 16 - [place] 872842-03-27 06:53:00 Test Item Value Reference Range Interpretation Comments Creatinine Lvl (test code = Creatinine 0.99 0.50-1.40 Lvl) [place] 872842-03-27 06:53:00 Test Item Value Reference Range Interpretation Comments Sodium Lvl (test code = Sodium Lvl) 141 135-145 [place] 872842-03-27 06:53:00 Test Item Value Reference Range Interpretation Comments Potassium Lvl (test code = Potassium 4.5 3.5-5.1 Lvl) [place] 872842-03-27 06:53:00 Test Item Value Reference Range Interpretation Comments Chloride Lvl (test code = Chloride Lvl) 111 95-109 [place] 872842-03-27 06:53:00 Test Item Value Reference Range Interpretation Comments CO2 (test code = CO2) 22 24-32 [place] 872842-03-27 06:53:00 Test Item Value Reference Range Interpretation Comments AGAP (test code = AGAP) 12.5 10.0-20.0 [place] 872842-03-27 06:53:00 Test Item Value Reference Range Interpretation Comments Calcium Lvl (test code = Calcium Lvl) 8.6 8.5-10.5 [place] 872842-03-27 06:53:00 Test Item Value Reference Range Interpretation Comments eGFR (test code = eGFR) 98 [place] 872842-03-27 06:53:00 Test Item Value Reference Range Interpretation Comments Glucose Lvl (test code = Glucose Lvl) 167 70-99 [place] 872842-03-27 06:53:00 Test Item Value Reference Range Interpretation Comments BUN (test code = BUN) 16 7-22 [place] 872842-03-27 06:53:00 Test Item Value Reference Range Interpretation Comments Creatinine Lvl (test code = Creatinine 0.99 0.50-1.40 Lvl) [place] 872842-03-27 06:53:00 Test Item Value Reference Range Interpretation Comments Sodium Lvl (test code = Sodium Lvl) 141 135-145 [place] 872842-03-27 06:53:00 Test Item Value Reference Range Interpretation Comments Potassium Lvl (test code = Potassium 4.5 3.5-5.1 Lvl) [place] 872842-03-27 06:53:00 Test Item Value Reference Range Interpretation Comments Chloride Lvl (test code = Chloride Lvl) 111 95-109 [place] 872842-03-27 06:53:00 Test Item Value Reference Range Interpretation Comments CO2 (test code = CO2) [place] 872842-03-27 06:53:00 Test Item Value Reference Range Interpretation Comments AGAP (test code = AGAP) 12.5 10.0-20.0 [place] 872842-03-27 06:53:00 Test Item Value Reference Range Interpretation Comments Calcium Lvl (test code = Calcium Lvl) 8.6 8.5-10.5 [place] 872842-03-27 06:53:00 Test Item Value Reference Range Interpretation Comments eGFR (test code = eGFR) 98 [place] 872842-03-27 06:53:00 Test Item Value Reference Range Interpretation Comments Glucose Lvl (test code = Glucose Lvl) 167 70-99 [place] 872842-03-27 06:53:00 Test Item Value Reference Range Interpretation Comments BUN (test code = BUN) 16 - [place] 872842-03-27 06:53:00 Test Item Value Reference Range Interpretation Comments Creatinine Lvl (test code = Creatinine 0.99 0.50-1.40 Lvl) [place] 872842-03-27 06:53:00 Test Item Value Reference Range Interpretation Comments Sodium Lvl (test code = Sodium Lvl) 141 135-145 [place] 872842-03-27 06:53:00 Test Item Value Reference Range Interpretation Comments Potassium Lvl (test code = Potassium 4.5 3.5-5.1 Lvl) [place] 872842-03-27 06:53:00 Test Item Value Reference Range Interpretation Comments Chloride Lvl (test code = Chloride Lvl) 111 95-109 [place] 872842-03-27 06:53:00 Test Item Value Reference Range Interpretation Comments CO2 (test code = CO2) 22 - [place] 872842-03-27 06:53:00 Test Item Value Reference Range Interpretation Comments AGAP (test code = AGAP) 12.5 10.0-20.0 [place] 872842-03-27 06:53:00 Test Item Value Reference Range Interpretation Comments Calcium Lvl (test code = Calcium Lvl) 8.6 8.5-10.5 [place] 872842-03-27 06:53:00 Test Item Value Reference Range Interpretation Comments eGFR (test code = eGFR) 98 [place] 872842-03-27 06:53:00 Test Item Value Reference Range Interpretation Comments Glucose Lvl (test code = Glucose Lvl) 167 70-99 [place] 872842-03-27 06:53:00 Test Item Value Reference Range Interpretation Comments BUN (test code = BUN) 16 7-22 [place] 872842-03-27 06:53:00 Test Item Value Reference Range Interpretation Comments Creatinine Lvl (test code = Creatinine 0.99 0.50-1.40 Lvl) [place] 872842-03-27 06:53:00 Test Item Value Reference Range Interpretation Comments Sodium Lvl (test code = Sodium Lvl) 141 135-145 [place] 872842-03-27 06:53:00 Test Item Value Reference Range Interpretation Comments Potassium Lvl (test code = Potassium 4.5 3.5-5.1 Lvl) [place] 872842-03-27 06:53:00 Test Item Value Reference Range Interpretation Comments Chloride Lvl (test code = Chloride Lvl) 111 95-109 [place] 872842-03-27 06:53:00 Test Item Value Reference Range Interpretation Comments CO2 (test code = CO2) 22 24-32 [place] 872842-03-27 06:53:00 Test Item Value Reference Range Interpretation Comments AGAP (test code = AGAP) 12.5 10.0-20.0 [place] 872842-03-27 06:53:00 Test Item Value Reference Range Interpretation Comments Calcium Lvl (test code = Calcium Lvl) 8.6 8.5-10.5 [place] 872842-03-27 06:53:00 Test Item Value Reference Range Interpretation Comments eGFR (test code = eGFR) 98 [place] 872842-03-27 06:53:00 Test Item Value Reference Range Interpretation Comments Glucose Lvl (test code = Glucose Lvl) 167 70-99 [place] 872842-03-27 06:53:00 Test Item Value Reference Range Interpretation Comments BUN (test code = BUN) 16 7-22 [place] 872842-03-27 06:53:00 Test Item Value Reference Range Interpretation Comments Creatinine Lvl (test code = Creatinine 0.99 0.50-1.40 Lvl) [place] 872842-03-27 06:53:00 Test Item Value Reference Range Interpretation Comments Sodium Lvl (test code = Sodium Lvl) 141 135-145 [place] 872842-03-27 06:53:00 Test Item Value Reference Range Interpretation Comments Potassium Lvl (test code = Potassium 4.5 3.5-5.1 Lvl) [place] 872842-03-27 06:53:00 Test Item Value Reference Range Interpretation Comments Chloride Lvl (test code = Chloride Lvl) 111 95-109 [place] 872842-03-27 06:53:00 Test Item Value Reference Range Interpretation Comments CO2 (test code = CO2) 22 24-32 [place] 872842-03-27 06:53:00 Test Item Value Reference Range Interpretation Comments AGAP (test code = AGAP) 12.5 10.0-20.0 [facility]2022-03-27 06:53:00 Test Item Value Reference Range Interpretation Comments Calcium Lvl (test code = Calcium Lvl) 8.6 8.5-10.5 [facility]2022-03-27 06:53:00 Test Item Value Reference Range Interpretation Comments eGFR (test code = eGFR) 98 [facility]SUSC:PT:ISOLATE:ORDQN:[id number] 22:59:00 Test Item Value Reference Range Interpretation Comments Culture: Urine (test >100,000 CFU/mL Proteus code = Culture: mirabilis >100,000 CFU/mL Urine) Providencia stuartii [facility]:SUSC:PT:ISOLATE:ORDQN:[id number] 22:59:00 Test Item Value Reference Range Interpretation Comments Providencia stuartii Providencia stuartii (test code = Providencia stuartii) [facility]BETSYTODE:SUSC:PT:ISOLATE:ORDQN:[id number] 22:59:00 Test Item Value Reference Range Interpretation Comments Proteus mirabilis (test Proteus mirabilis code = Proteus mirabilis) [facility] [id number] 22:59:00 Test Item Value Reference Range Interpretation Comments Culture: Urine (test Holding For Better code = Culture: Urine) [facility]NITR[facility]URANTOIN:SUSC:PT:ISOLATE:ORDQN:[id number] 22:59:00 Test Item Value Reference Range Interpretation Comments Culture: Urine (test >100,000 CFU/mL Proteus code = Culture: mirabilis >100,000 CFU/mL Urine) Providencia stuartii [facility] HermannNITROFURANTOIN:SUSC:PT:ISOLATE:ORDQN:[id number] 22:59:00 Test Item Value Reference Range Interpretation Comments Providencia stuartii Providencia stuartii (test code = Providencia stuartii) [facility]annNITROFURANTOIN:SUSC:PT:ISOLATE:ORDQN:[id number] 22:59:00 Test Item Value Reference Range Interpretation Comments Proteus mirabilis (test Proteus mirabilis code = Proteus mirabilis) [facility]annCulture: [id number] 22:59:00 Test Item Value Reference Range Interpretation Comments Culture: Urine (test Holding For Better code = Culture: Urine) [facility] HermannNITROFURANTOIN:SUSC:PT:ISOLATE:ORDQN:[id number] 22:59:00 Test Item Value Reference Range Interpretation Comments Culture: Urine (test >100,000 CFU/mL Proteus code = Culture: mirabilis >100,000 CFU/mL Urine) Providencia stuartii [facility] HermannNITROFURANTOIN:SUSC:PT:ISOLATE:ORDQN:[id number] 22:59:00 Test Item Value Reference Range Interpretation Comments Providencia stuartii Providencia stuartii (test code = Providencia stuartii) [facility]IN:SUSC:PT:ISOLATE:ORDQN:[id number] 22:59:00 Test Item Value Reference Range Interpretation Comments Proteus mirabilis (test Proteus mirabilis code = Proteus mirabilis) [facility]annCulture: [id number] 22:59:00 Test Item Value Reference Range Interpretation Comments Culture: Urine (test Holding For Better code = Culture: Urine) [facility]annNITROFURANTOIN:SUSC:PT:ISOLATE:ORDQN:[id number] 22:59:00 Test Item Value Reference Range Interpretation Comments Culture: Urine (test >100,000 CFU/mL Proteus code = Culture: mirabilis >100,000 CFU/mL Urine) Providencia stuartii [facility]annNITROFURANTOIN:SUSC:PT:ISOLATE:ORDQN:[id number] 22:59:00 Test Item Value Reference Range Interpretation Comments Providencia stuartii Providencia stuartii (test code = Providencia stuartii) [facility]NITROFURANTOIN:SUSC:PT:ISOLATE:ORDQN:[id number] 22:59:00 Test Item Value Reference Range Interpretation Comments Proteus mirabilis (test Proteus mirabilis code = Proteus mirabilis) [facility]annCulture: [id number] 22:59:00 Test Item Value Reference Range Interpretation Comments Culture: Urine (test Holding For Better code = Culture: Urine) [facility]annNITROFURANTOIN:SUSC:PT:ISOLATE:ORDQN:[id number] 22:59:00 Test Item Value Reference Range Interpretation Comments Culture: Urine (test >100,000 CFU/mL Proteus code = Culture: mirabilis >100,000 CFU/mL Urine) Providencia stuartii [facility]annNITROFURANTOIN:SUSC:PT:ISOLATE:ORDQN:[id number] 22:59:00 Test Item Value Reference Range Interpretation Comments Providencia stuartii Providencia stuartii (test code = Providencia stuartii) [facility]NIT[facility]URANT[facility]IN:SUSC:PT:ISOLATE:ORDQN:[id number] 22:59:00 Test Item Value Reference Range Interpretation Comments Proteus mirabilis (test Proteus mirabilis code = Proteus mirabilis) [facility]: [id number] 22:59:00 Test Item Value Reference Range Interpretation Comments Culture: Urine (test Holding For Better code = Culture: Urine) [facility]annNITR[facility]URANT[facility]IN:SUSC:PT:ISOLATE:ORDQN:[id number] 22:59:00 Test Item Value Reference Range Interpretation Comments Culture: Urine (test >100,000 CFU/mL Proteus code = Culture: mirabilis >100,000 CFU/mL Urine) Providencia stuartii [facility]annNITROFURANTOIN:SUSC:PT:ISOLATE:ORDQN:[id number] 22:59:00 Test Item Value Reference Range Interpretation Comments Providencia stuartii Providencia stuartii (test code = Providencia stuartii) [facility]annNIT[facility]IN:SUSC:PT:ISOLATE:ORDQN:[id number] 22:59:00 Test Item Value Reference Range Interpretation Comments Proteus mirabilis (test Proteus mirabilis code = Proteus mirabilis) [facility]annCulture: [id number] 22:59:00 Test Item Value Reference Range Interpretation Comments Culture: Urine (test Holding For Better code = Culture: Urine) [facility] HospitalApp[facility] [id number] 21:03:00 Test Item Value Reference Range Interpretation Comments Glucose Lvl (test code = Glucose Lvl) 126 70-99 [facility] [id number] 21:03:00 Test Item Value Reference Range Interpretation Comments BUN (test code = BUN) 16 7-22 [facility] [id number] 21:03:00 Test Item Value Reference Range Interpretation Comments Creatinine Lvl (test code = Creatinine 0.76 0.50-1.40 Lvl) [facility]Com[facility] [id number] 21:03:00 Test Item Value Reference Range Interpretation Comments Sodium Lvl (test code = Sodium Lvl) 140 135-145 [facility] [id number] 21:03:00 Test Item Value Reference Range Interpretation Comments Potassium Lvl (test code = Potassium 3.3 3.5-5.1 Lvl) [place] 872842-03-26 21:03:00 Test Item Value Reference Range Interpretation Comments Chloride Lvl (test code = Chloride Lvl) 111 95-109 [place] 872842-03-26 21:03:00 Test Item Value Reference Range Interpretation Comments CO2 (test code = CO2) 22 24-32 [place] 872842-03-26 21:03:00 Test Item Value Reference Range Interpretation Comments Calcium Lvl (test code = Calcium Lvl) 8.5 8.5-10.5 [place] 872842-03-26 21:03:00 Test Item Value Reference Range Interpretation Comments AGAP (test code = AGAP) 10.3 10.0-20.0 [place] 872842-03-26 21:03:00 Test Item Value Reference Range Interpretation Comments eGFR (test code = eGFR) 117 [place] 872842-03-26 21:03:00 Test Item Value Reference Range Interpretation Comments Lactic Acid Lvl (test code = Lactic 1.1 0.5-2.2 Acid Lvl) [place] 122332-03-26 21:03:00 Test Item Value Reference Range Interpretation Comments Segs (test code = Segs) 68.9 45.0-75.0 [place] 122332-03-26 21:03:00 Test Item Value Reference Range Interpretation Comments Lymphocytes (test code = Lymphocytes) 20.4 20.0-40.0 [place] 122332-03-26 21:03:00 Test Item Value Reference Range Interpretation Comments Monocytes (test code = Monocytes) 8.2 2.0-12.0 [place] [address]-03-26 21:03:00 Test Item Value Reference Range Interpretation Comments Eosinophils (test code = 2.2 See_Comment [A utomated message] The Eosinophils) system which ge nerated this result tra nsmitted reference range : <=4.0. The reference r boubacar was not used to int erpret this result as normal/abnormal . [place] 122332-03-26 21:03:00 Test Item Value Reference Range Interpretation Comments Basophils (test code = 0.3 See_Comment [Aut omated message] The Basophils) system which ge nerated this result tra nsmitted reference range : <=1.0. The reference r boubacar was not used to int erpret this result as normal/abnormal . [place] 122332-03-26 21:03:00 Test Item Value Reference Range Interpretation Comments Neutrophils # (test code = Neutrophils 5.5 1.5-8.1 #) [place] 122332-03-26 21:03:00 Test Item Value Reference Range Interpretation Comments Lymphocytes # (test code = Lymphocytes 1.6 1.0-5.5 #) [place] 122332-03-26 21:03:00 Test Item Value Reference Range Interpretation Comments Monocytes # (test code 0.7 See_Comment [Aut omated message] The = Monocytes #) system which generated this result tra nsmitted reference range : <=0.8. The reference r boubacar was not used to int erpret this result as normal/abnormal . [place] 122332-03-26 21:03:00 Test Item Value Reference Range Interpretation Comments Eosinophils # (test code 0.2 See_Comment [A utomated message] The = Eosinophils #) system whic h generated this result tra nsmitted reference range : <=0.5. The reference r boubacar was not used to int erpret this result as normal/abnormal . [facility] [id number] 21:03:00 Test Item Value Reference Range Interpretation Comments WBC (test code = WBC) 8.0 3.7-10.4 [place] 122332-03-26 21:03:00 Test Item Value Reference Range Interpretation Comments RBC (test code = RBC) 5.37 4.70-6.10 [place] [address]-03-26 21:03:00 Test Item Value Reference Range Interpretation Comments Hgb (test code = Hgb) 15.9 14.0-18.0 [place] [address]-03-26 21:03:00 Test Item Value Reference Range Interpretation Comments Hct (test code = Hct) 47.3 42.0-54.0 [place] [address]-03-26 21:03:00 Test Item Value Reference Range Interpretation Comments MCV (test code = MCV) 88.1 80.0-94.0 [place] 122332-03-26 21:03:00 Test Item Value Reference Range Interpretation Comments MCH (test code = MCH) 29.6 pg 27.0-31.0 [facility] [id number] 21:03:00 Test Item Value Reference Range Interpretation Comments MCHC (test code = MCHC) 33.6 32.0-36.0 [id number] 21:03:00 Test Item Value Reference Range Interpretation Comments RDW (test code = RDW) 15.3 11.5-14.5 [id number] 21:03:00 Test Item Value Reference Range Interpretation Comments Platelet (test code = Platelet) 370 133-450 [facility] [id number] 21:03:00 Test Item Value Reference Range Interpretation Comments MPV (test code = MPV) 8.1 7.4-10.4 [facility] AND [id number] 21:03:00 Test Item Value Reference Range Interpretation Comments UA Comment 1 (test Suboptimal specimen code = UA Comment 1) received. Results may be inaccurate due to the age of the specimen. Interpret results with caution. [facility] [id number] 21:03:00 Test Item Value Reference Range Interpretation Comments UA Color (test code = Yellow *NA*(10/07/21 UA Color) 4:03 PM) [facility] AND [id number] 21:03:00 Test Item Value Reference Range Interpretation Comments UA Turbidity (test code Slight *ABN*(10/07/21 = UA Turbidity) 4:03 PM) [facility] AND [id number] 21:03:00 Test Item Value Reference Range Interpretation Comments UA Spec Grav (test code = UA Spec 1.015 1 Grav) [facility] [id number] 21:03:00 Test Item Value Reference Range Interpretation Comments UA pH (test code = UA pH) 5.0 1 5.0-8.0 [facility] [id number] 21:03:00 Test Item Value Reference Range Interpretation Comments UA Protein (test code = UA Negative mg/dL Protein) [facility] AND [id number] 21:03:00 Test Item Value Reference Range Interpretation Comments UA Glucose (test code = [facility]A Negative mg/dL Glucose) [facility] [id number] 21:03:00 Test Item Value Reference Range Interpretation Comments UA Ketones (test code = UA Negative mg/dL Ketones) [facility] [id number] 21:03:00 Test Item Value Reference Range Interpretation Comments UA Bili (test code = Negative *NA*(10/07/21 UA Bili) 4:03 PM) [facility] [id number] 21:03:00 Test Item Value Reference Range Interpretation Comments UA Blood (test code = Negative (10/07/21 4:03 UA Blood) PM) [facility] AND [id number] 21:03:00 Test Item Value Reference Range Interpretation Comments UA Urobilinogen (test code = UA no gt 0.1-1.0 Urobilinogen) [facility] AND [id number] 21:03:00 Test Item Value Reference Range Interpretation Comments UA Nitrite (test code Negative (10/07/21 4:03 = UA Nitrite) PM) [facility] AND [id number] 21:03:00 Test Item Value Reference Range Interpretation Comments UA Leuk Est (test code Large *ABN*(10/07/21 = UA Leuk Est) 4:03 PM) [facility] AND [id number] 21:03:00 Test Item Value Reference Range Interpretation Comments UA WBC (test code = 64 See_Comment [Automa lester message] The UA WBC) system which ge nerated this result transmit lester reference range : <=5. The reference range was not used to interpr et this result as dany l/abnormal. [facility] [id number] 21:03:00 Test Item Value Reference Range Interpretation Comments UA RBC (test code = 2 See_Comment [Automa lester message] The UA RBC) system which ge nerated this result transmit lester reference range : <=2. The reference range was not used to interpr et this result as dany l/abnormal. [facility] [id number] 21:03:00 Test Item Value Reference Range Interpretation Comments UA Mucus (test code = UA Mucus) Few /LPF [facility] AND [id number] 21:03:00 Test Item Value Reference Range Interpretation Comments UA Sq Epi (test code = UA Sq Epi) None Seen [place] 872842-03-26 21:03:00 Test Item Value Reference Range Interpretation Comments Glucose Lvl (test code = Glucose Lvl) 126 70-99 [place] 872842-03-26 21:03:00 Test Item Value Reference Range Interpretation Comments BUN (test code = BUN) 16 7-22 [place] 872842-03-26 21:03:00 Test Item Value Reference Range Interpretation Comments Creatinine Lvl (test code = Creatinine 0.76 0.50-1.40 Lvl) [place] 872842-03-26 21:03:00 Test Item Value Reference Range Interpretation Comments Sodium Lvl (test code = Sodium Lvl) 140 135-145 [place] 872842-03-26 21:03:00 Test Item Value Reference Range Interpretation Comments Potassium Lvl (test code = Potassium 3.3 3.5-5.1 Lvl) [place] 872842-03-26 21:03:00 Test Item Value Reference Range Interpretation Comments Chloride Lvl (test code = Chloride Lvl) 111 95-109 [place] 872842-03-26 21:03:00 Test Item Value Reference Range Interpretation Comments CO2 (test code = CO2) 22 24-32 [place] 872842-03-26 21:03:00 Test Item Value Reference Range Interpretation Comments Calcium Lvl (test code = Calcium Lvl) 8.5 8.5-10.5 [place] 872842-03-26 21:03:00 Test Item Value Reference Range Interpretation Comments AGAP (test code = AGAP) 10.3 10.0-20.0 [place] 872842-03-26 21:03:00 Test Item Value Reference Range Interpretation Comments eGFR (test code = eGFR) 117 [place] 872842-03-26 21:03:00 Test Item Value Reference Range Interpretation Comments Lactic Acid Lvl (test code = Lactic 1.1 0.5-2.2 Acid Lvl) [place] 122332-03-26 21:03:00 Test Item Value Reference Range Interpretation Comments Segs (test code = Segs) 68.9 45.0-75.0 [place] 122332-03-26 21:03:00 Test Item Value Reference Range Interpretation Comments Lymphocytes (test code = Lymphocytes) 20.4 20.0-40.0 [place] 122332-03-26 21:03:00 Test Item Value Reference Range Interpretation Comments Monocytes (test code = Monocytes) 8.2 2.0-12.0 [place] 122332-03-26 21:03:00 Test Item Value Reference Range Interpretation Comments Eosinophils (test code = 2.2 See_Comment [A utomated message] The Eosinophils) system which ge nerated this result tra nsmitted reference range : <=4.0. The reference r boubacar was not used to int erpret this result as normal/abnormal . [facility] [id number] 21:03:00 Test Item Value Reference Range Interpretation Comments Basophils (test code = 0.3 See_Comment [Aut omated message] The Basophils) system which ge nerated this result tra nsmitted reference range : <=1.0. The reference r boubacar was not used to int erpret this result as normal/abnormal . [place] 122332-03-26 21:03:00 Test Item Value Reference Range Interpretation Comments Neutrophils # (test code = Neutrophils 5.5 1.5-8.1 #) [facility] [id number] 21:03:00 Test Item Value Reference Range Interpretation Comments Lymphocytes # (test code = Lymphocytes 1.6 1.0-5.5 #) [place] 122332-03-26 21:03:00 Test Item Value Reference Range Interpretation Comments Monocytes # (test code 0.7 See_Comment [Aut omated message] The = Monocytes #) system which generated this result tra nsmitted reference range : <=0.8. The reference r boubacar was not used to int erpret this result as normal/abnormal . [facility] [id number] 21:03:00 Test Item Value Reference Range Interpretation Comments Eosinophils # (test code 0.2 See_Comment [A utomated message] The = Eosinophils #) system whic h generated this result tra nsmitted reference range : <=0.5. The reference r boubacar was not used to int erpret this result as normal/abnormal . [facility] [id number] 21:03:00 Test Item Value Reference Range Interpretation Comments WBC (test code = WBC) 8.0 3.7-10.4 [facility] [id number] 21:03:00 Test Item Value Reference Range Interpretation Comments RBC (test code = RBC) 5.37 4.70-6.10 [facility] [id number] 21:03:00 Test Item Value Reference Range Interpretation Comments Hgb (test code = Hgb) 15.9 14.0-18.0 [facility] [id number] 21:03:00 Test Item Value Reference Range Interpretation Comments Hct (test code = Hct) 47.3 42.0-54.0 [facility] [id number] 21:03:00 Test Item Value Reference Range Interpretation Comments MCV (test code = MCV) 88.1 80.0-94.0 [facility] [id number] 21:03:00 Test Item Value Reference Range Interpretation Comments MCH (test code = MCH) 29.6 pg 27.0-31.0 [facility] [id number] 21:03:00 Test Item Value Reference Range Interpretation Comments MCHC (test code = MCHC) 33.6 32.0-36.0 [facility] [id number] 21:03:00 Test Item Value Reference Range Interpretation Comments RDW (test code = RDW) 15.3 11.5-14.5 [facility] [id number] 21:03:00 Test Item Value Reference Range Interpretation Comments Platelet (test code = Platelet) 370 133-450 [facility] [id number] 21:03:00 Test Item Value Reference Range Interpretation Comments MPV (test code = MPV) 8.1 7.4-10.4 [facility]2022-03-26 21:03:00 Test Item Value Reference Range Interpretation Comments UA Comment 1 (test Suboptimal specimen code = UA Comment 1) received. Results may be inaccurate due to the age of the specimen. Interpret results with caution. [facility]2022-03-26 21:03:00 Test Item Value Reference Range Interpretation Comments UA Color (test code = Yellow *NA*(10/07/21 UA Color) 4:03 PM) [facility]2022-03-26 21:03:00 Test Item Value Reference Range Interpretation Comments UA Turbidity (test code Slight *ABN*(10/07/21 = UA Turbidity) 4:03 PM) [facility] AND [id number] 21:03:00 Test Item Value Reference Range Interpretation Comments UA Spec Grav (test code = UA Spec 1.015 1 Grav) [facility] AND [id number] 21:03:00 Test Item Value Reference Range Interpretation Comments UA pH (test code = UA pH) 5.0 1 5.0-8.0 [facility] AND [id number] 21:03:00 Test Item Value Reference Range Interpretation Comments UA Protein (test code = UA Negative mg/dL Protein) [facility] AND [id number] 21:03:00 Test Item Value Reference Range Interpretation Comments UA Glucose (test code = UA Negative mg/dL Glucose) [facility] AND [id number] 21:03:00 Test Item Value Reference Range Interpretation Comments UA Ketones (test code = UA Negative mg/dL Ketones) [facility] AND [id number] 21:03:00 Test Item Value Reference Range Interpretation Comments UA Bili (test code = Negative *NA*(10/07/21 UA Bili) 4:03 PM) [facility] AND [id number] 21:03:00 Test Item Value Reference Range Interpretation Comments UA Blood (test code = Negative (10/07/21 4:03 UA Blood) PM) [facility] AND [id number] 21:03:00 Test Item Value Reference Range Interpretation Comments UA Urobilinogen (test code = UA no gt 0.1-1.0 Urobilinogen) [facility] AND [id number] 21:03:00 Test Item Value Reference Range Interpretation Comments UA Nitrite (test code Negative (10/07/21 4:03 = UA Nitrite) PM) [facility] AND [id number] 21:03:00 Test Item Value Reference Range Interpretation Comments UA Leuk Est (test code Large *ABN*(10/07/21 = UA Leuk Est) 4:03 PM) [facility] AND [id number] 21:03:00 Test Item Value Reference Range Interpretation Comments UA WBC (test code = 64 See_Comment [Automa lester message] The UA WBC) system which ge nerated this result transmit lester reference range : <=5. The reference range was not used to interpr et this result as dany l/abnormal. [facility] AND [id number] 21:03:00 Test Item Value Reference Range Interpretation Comments UA RBC (test code = 2 See_Comment [Automa lester message] The UA RBC) system which ge nerated this result transmit lester reference range : <=2. The reference range was not used to interpr et this result as dany l/abnormal. [facility] AND [id number] 21:03:00 Test Item Value Reference Range Interpretation Comments UA Mucus (test code = UA Mucus) Few /LPF [facility] AND [id number] 21:03:00 Test Item Value Reference Range Interpretation Comments UA Sq Epi (test code = UA Sq Epi) None Seen [facility]2022-03-26 21:03:00 Test Item Value Reference Range Interpretation Comments Glucose Lvl (test code = Glucose Lvl) 126 70-99 [facility]2022-03-26 21:03:00 Test Item Value Reference Range Interpretation Comments BUN (test code = BUN) 16 7-22 [place] 872842-03-26 21:03:00 Test Item Value Reference Range Interpretation Comments Creatinine Lvl (test code = Creatinine 0.76 0.50-1.40 Lvl) [place] 872842-03-26 21:03:00 Test Item Value Reference Range Interpretation Comments Sodium Lvl (test code = Sodium Lvl) 140 135-145 [place] 872842-03-26 21:03:00 Test Item Value Reference Range Interpretation Comments Potassium Lvl (test code = Potassium 3.3 3.5-5.1 Lvl) [facility]2022-03-26 21:03:00 Test Item Value Reference Range Interpretation Comments Chloride Lvl (test code = Chloride Lvl) 111 95-109 [facility]2022-03-26 21:03:00 Test Item Value Reference Range Interpretation Comments CO2 (test code = CO2) 22 24-32 [facility]2022-03-26 21:03:00 Test Item Value Reference Range Interpretation Comments Calcium Lvl (test code = Calcium Lvl) 8.5 8.5-10.5 [place] 872842-03-26 21:03:00 Test Item Value Reference Range Interpretation Comments AGAP (test code = AGAP) 10.3 10.0-20.0 [place] 872842-03-26 21:03:00 Test Item Value Reference Range Interpretation Comments eGFR (test code = eGFR) 117 [place] 872842-03-26 21:03:00 Test Item Value Reference Range Interpretation Comments Lactic Acid Lvl (test code = Lactic 1.1 0.5-2.2 Acid Lvl) [place] [address]-03-26 21:03:00 Test Item Value Reference Range Interpretation Comments Segs (test code = Segs) 68.9 45.0-75.0 [place] [address]-03-26 21:03:00 Test Item Value Reference Range Interpretation Comments Lymphocytes (test code = Lymphocytes) 20.4 20.0-40.0 [place] 122332-03-26 21:03:00 Test Item Value Reference Range Interpretation Comments Monocytes (test code = Monocytes) 8.2 2.0-12.0 [place] [address]-03-26 21:03:00 Test Item Value Reference Range Interpretation Comments Eosinophils (test code = 2.2 See_Comment [A utomated message] The Eosinophils) system which ge nerated this result tra nsmitted reference range : <=4.0. The reference r boubacar was not used to int erpret this result as normal/abnormal . [place] 122332-03-26 21:03:00 Test Item Value Reference Range Interpretation Comments Basophils (test code = 0.3 See_Comment [Aut omated message] The Basophils) system which ge nerated this result tra nsmitted reference range : <=1.0. The reference r boubacar was not used to int erpret this result as normal/abnormal . [place] 122332-03-26 21:03:00 Test Item Value Reference Range Interpretation Comments Neutrophils # (test code = Neutrophils 5.5 1.5-8.1 #) [place] 122332-03-26 21:03:00 Test Item Value Reference Range Interpretation Comments Lymphocytes # (test code = Lymphocytes 1.6 1.0-5.5 #) [address]03-26 21:03:00 Test Item Value Reference Range Interpretation Comments Monocytes # (test code 0.7 See_Comment [Aut omated message] The = Monocytes #) system which generated this result tra nsmitted reference range : <=0.8. The reference r boubacar was not used to int erpret this result as normal/abnormal . [facility] [id number] 21:03:00 Test Item Value Reference Range Interpretation Comments Eosinophils # (test code 0.2 See_Comment [A utomated message] The = Eosinophils #) system whic h generated this result tra nsmitted reference range : <=0.5. The reference r boubacar was not used to int erpret this result as normal/abnormal . [facility] [id number] 21:03:00 Test Item Value Reference Range Interpretation Comments WBC (test code = WBC) 8.0 3.7-10.4 [place] 122332-03-26 21:03:00 Test Item Value Reference Range Interpretation Comments RBC (test code = RBC) 5.37 4.70-6.10 [place] 122332-03-26 21:03:00 Test Item Value Reference Range Interpretation Comments Hgb (test code = Hgb) 15.9 14.0-18.0 [place] 122332-03-26 21:03:00 Test Item Value Reference Range Interpretation Comments Hct (test code = Hct) 47.3 42.0-54.0 [place] 122332-03-26 21:03:00 Test Item Value Reference Range Interpretation Comments MCV (test code = MCV) 88.1 80.0-94.0 [facility] [id number] 21:03:00 Test Item Value Reference Range Interpretation Comments MCH (test code = MCH) 29.6 pg 27.0-31.0 [place] 122332-03-26 21:03:00 Test Item Value Reference Range Interpretation Comments MCHC (test code = MCHC) 33.6 32.0-36.0 [place] 122332-03-26 21:03:00 Test Item Value Reference Range Interpretation Comments RDW (test code = RDW) 15.3 11.5-14.5 [facility] [id number] 21:03:00 Test Item Value Reference Range Interpretation Comments Platelet (test code = Platelet) 370 133-450 [facility] CampusRzuukrrXQMJVDETHU4582-83-27 21:03:00 Test Item Value Reference Range Interpretation Comments MPV (test code = MPV) 8.1 7.4-10.4 [facility] AND [id number] 21:03:00 Test Item Value Reference Range Interpretation Comments UA Comment 1 (test Suboptimal specimen code = UA Comment 1) received. Results may be inaccurate due to the age of the specimen. Interpret results with caution. [facility] AND [id number] 21:03:00 Test Item Value Reference Range Interpretation Comments UA Color (test code = Yellow *NA*(10/07/21 UA Color) 4:03 PM) [facility] AND [id number] 21:03:00 Test Item Value Reference Range Interpretation Comments UA Turbidity (test code Slight *ABN*(10/07/21 = UA Turbidity) 4:03 PM) [facility] AND [id number] 21:03:00 Test Item Value Reference Range Interpretation Comments UA Spec Grav (test code = UA Spec 1.015 1 Grav) [facility] AND [id number] 21:03:00 Test Item Value Reference Range Interpretation Comments UA pH (test code = UA pH) 5.0 1 5.0-8.0 [facility] AND [id number] 21:03:00 Test Item Value Reference Range Interpretation Comments UA Protein (test code = UA Negative mg/dL Protein) [facility] AND [id number] 21:03:00 Test Item Value Reference Range Interpretation Comments UA Glucose (test code = UA Negative mg/dL Glucose) [facility] AND [id number] 21:03:00 Test Item Value Reference Range Interpretation Comments UA Ketones (test code = UA Negative mg/dL Ketones) [facility] AND [id number] 21:03:00 Test Item Value Reference Range Interpretation Comments UA Bili (test code = Negative *NA*(10/07/21 UA Bili) 4:03 PM) [facility] AND [id number] 21:03:00 Test Item Value Reference Range Interpretation Comments UA Blood (test code = Negative (10/07/21 4:03 UA Blood) PM) [facility] AND [id number] 21:03:00 Test Item Value Reference Range Interpretation Comments UA Urobilinogen (test code = UA no gt 0.1-1.0 Urobilinogen) [facility] AND [id number] 21:03:00 Test Item Value Reference Range Interpretation Comments UA Nitrite (test code Negative (10/07/21 4:03 = UA Nitrite) PM) [facility] AND [id number] 21:03:00 Test Item Value Reference Range Interpretation Comments UA Leuk Est (test code Large *ABN*(10/07/21 = UA Leuk Est) 4:03 PM) [facility] AND [id number] 21:03:00 Test Item Value Reference Range Interpretation Comments UA WBC (test code = 64 See_Comment [Automa lester message] The UA WBC) system which ge nerated this result transmit lester reference range : <=5. The reference range was not used to interpr et this result as dany l/abnormal. [facility] AND [id number] 21:03:00 Test Item Value Reference Range Interpretation Comments UA RBC (test code = 2 See_Comment [Automa lester message] The UA RBC) system which ge nerated this result transmit lester reference range : <=2. The reference range was not used to interpr et this result as dany l/abnormal. [facility] AND [id number] 21:03:00 Test Item Value Reference Range Interpretation Comments UA Mucus (test code = UA Mucus) Few /LPF [facility] AND [id number] 21:03:00 Test Item Value Reference Range Interpretation Comments UA Sq Epi (test code = UA Sq Epi) None Seen [facility]2022-03-26 21:03:00 Test Item Value Reference Range Interpretation Comments Glucose Lvl (test code = Glucose Lvl) 126 70-99 [facility] [id number] 21:03:00 Test Item Value Reference Range Interpretation Comments BUN (test code = BUN) 16 7-22 [facility]2022-03-26 21:03:00 Test Item Value Reference Range Interpretation Comments Creatinine Lvl (test code = Creatinine 0.76 0.50-1.40 Lvl) [place] 872842-03-26 21:03:00 Test Item Value Reference Range Interpretation Comments Sodium Lvl (test code = Sodium Lvl) 140 135-145 [place] 872842-03-26 21:03:00 Test Item Value Reference Range Interpretation Comments Potassium Lvl (test code = Potassium 3.3 3.5-5.1 Lvl) [place] 872842-03-26 21:03:00 Test Item Value Reference Range Interpretation Comments Chloride Lvl (test code = Chloride Lvl) 111 95-109 [place] 872842-03-26 21:03:00 Test Item Value Reference Range Interpretation Comments CO2 (test code = CO2) 22 24-32 [place] 872842-03-26 21:03:00 Test Item Value Reference Range Interpretation Comments Calcium Lvl (test code = Calcium Lvl) 8.5 8.5-10.5 [place] 872842-03-26 21:03:00 Test Item Value Reference Range Interpretation Comments AGAP (test code = AGAP) 10.3 10.0-20.0 [place] 872842-03-26 21:03:00 Test Item Value Reference Range Interpretation Comments eGFR (test code = eGFR) 117 [place] 872842-03-26 21:03:00 Test Item Value Reference Range Interpretation Comments Lactic Acid Lvl (test code = Lactic 1.1 0.5-2.2 Acid Lvl) [place] 122332-03-26 21:03:00 Test Item Value Reference Range Interpretation Comments Segs (test code = Segs) 68.9 45.0-75.0 [place] 122332-03-26 21:03:00 Test Item Value Reference Range Interpretation Comments Lymphocytes (test code = Lymphocytes) 20.4 20.0-40.0 [place] [address]-03-26 21:03:00 Test Item Value Reference Range Interpretation Comments Monocytes (test code = Monocytes) 8.2 2.0-12.0 [place] [address]-03-26 21:03:00 Test Item Value Reference Range Interpretation Comments Eosinophils (test code = 2.2 See_Comment [A utomated message] The Eosinophils) system which ge nerated this result tra nsmitted reference range : <=4.0. The reference r boubacar was not used to int erpret this result as normal/abnormal . [facility] [id number] 21:03:00 Test Item Value Reference Range Interpretation Comments Basophils (test code = 0.3 See_Comment [Aut omated message] The Basophils) system which ge nerated this result tra nsmitted reference range : <=1.0. The reference r boubacar was not used to int erpret this result as normal/abnormal . [place] 122332-03-26 21:03:00 Test Item Value Reference Range Interpretation Comments Neutrophils # (test code = Neutrophils 5.5 1.5-8.1 #) [facility] [id number] 21:03:00 Test Item Value Reference Range Interpretation Comments Lymphocytes # (test code = Lymphocytes 1.6 1.0-5.5 #) [place] 122332-03-26 21:03:00 Test Item Value Reference Range Interpretation Comments Monocytes # (test code 0.7 See_Comment [Aut omated message] The = Monocytes #) system which generated this result tra nsmitted reference range : <=0.8. The reference r boubacar was not used to int erpret this result as normal/abnormal . [facility] [id number] 21:03:00 Test Item Value Reference Range Interpretation Comments Eosinophils # (test code 0.2 See_Comment [A utomated message] The = Eosinophils #) system whic h generated this result tra nsmitted reference range : <=0.5. The reference r boubacar was not used to int erpret this result as normal/abnormal . [facility] [id number] 21:03:00 Test Item Value Reference Range Interpretation Comments WBC (test code = WBC) 8.0 3.7-10.4 [place] 122332-03-26 21:03:00 Test Item Value Reference Range Interpretation Comments RBC (test code = RBC) 5.37 4.70-6.10 [place] 122332-03-26 21:03:00 Test Item Value Reference Range Interpretation Comments Hgb (test code = Hgb) 15.9 14.0-18.0 [place] 122332-03-26 21:03:00 Test Item Value Reference Range Interpretation Comments Hct (test code = Hct) 47.3 42.0-54.0 [facility]ImyumngNKOLYXFOZD6259-92-97 21:03:00 Test Item Value Reference Range Interpretation Comments MCV (test code = MCV) 88.1 80.0-94.0 [facility]EjmykjeXRRAUKQXFN7667-24-05 21:03:00 Test Item Value Reference Range Interpretation Comments MCH (test code = MCH) 29.6 pg 27.0-31.0 [facility] HospitalDwsaozsHTIHGLELBE8228-51-40 21:03:00 Test Item Value Reference Range Interpretation Comments MCHC (test code = MCHC) 33.6 32.0-36.0 [facility] HospitalNnfvxmgQGUHJEGCZR5368-11-05 21:03:00 Test Item Value Reference Range Interpretation Comments RDW (test code = RDW) 15.3 11.5-14.5 [id number] 21:03:00 Test Item Value Reference Range Interpretation Comments Platelet (test code = Platelet) 370 133-450 [facility] [id number] 21:03:00 Test Item Value Reference Range Interpretation Comments MPV (test code = MPV) 8.1 7.4-10.4 [facility] AND [id number] 21:03:00 Test Item Value Reference Range Interpretation Comments UA Comment 1 (test Suboptimal specimen code = UA Comment 1) received. Results may be inaccurate due to the age of the specimen. Interpret results with caution. [facility] [id number] 21:03:00 Test Item Value Reference Range Interpretation Comments UA Color (test code = Yellow *NA*(10/07/21 UA Color) 4:03 PM) [facility] [id number] 21:03:00 Test Item Value Reference Range Interpretation Comments UA Turbidity (test code Slight *ABN*(10/07/21 = UA Turbidity) 4:03 PM) [facility] [id number] 21:03:00 Test Item Value Reference Range Interpretation Comments UA Spec Grav (test code = UA Spec 1.015 1 Grav) [facility] [id number] 21:03:00 Test Item Value Reference Range Interpretation Comments UA pH (test code = UA pH) 5.0 1 5.0-8.0 [facility] [id number] 21:03:00 Test Item Value Reference Range Interpretation Comments UA Protein (test code = UA Negative mg/dL Protein) [facility] AND [id number] 21:03:00 Test Item Value Reference Range Interpretation Comments UA Glucose (test code = UA Negative mg/dL Glucose) [facility] AND [id number] 21:03:00 Test Item Value Reference Range Interpretation Comments UA Ketones (test code = UA Negative mg/dL Ketones) [facility] AND [id number] 21:03:00 Test Item Value Reference Range Interpretation Comments UA Bili (test code = Negative *NA*(10/07/21 UA Bili) 4:03 PM) [facility] AND [id number] 21:03:00 Test Item Value Reference Range Interpretation Comments UA Blood (test code = Negative (10/07/21 4:03 UA Blood) PM) [facility] AND [id number] 21:03:00 Test Item Value Reference Range Interpretation Comments UA Urobilinogen (test code = UA no gt 0.1-1.0 Urobilinogen) [facility] AND [id number] 21:03:00 Test Item Value Reference Range Interpretation Comments UA Nitrite (test code Negative (10/07/21 4:03 = UA Nitrite) PM) [facility] AND [id number] 21:03:00 Test Item Value Reference Range Interpretation Comments UA Leuk Est (test code Large *ABN*(10/07/21 = UA Leuk Est) 4:03 PM) [facility] AND [id number] 21:03:00 Test Item Value Reference Range Interpretation Comments UA WBC (test code = 64 See_Comment [Automa lester message] The UA WBC) system which ge nerated this result transmit lester reference range : <=5. The reference range was not used to interpr et this result as dany l/abnormal. [facility] AND [id number] 21:03:00 Test Item Value Reference Range Interpretation Comments UA RBC (test code = 2 See_Comment [Automa lester message] The UA RBC) system which ge nerated this result transmit lester reference range : <=2. The reference range was not used to interpr et this result as dany l/abnormal. [facility] AND [id number] 21:03:00 Test Item Value Reference Range Interpretation Comments UA Mucus (test code = UA Mucus) Few /LPF [facility] AND [id number] 21:03:00 Test Item Value Reference Range Interpretation Comments UA Sq Epi (test code = UA Sq Epi) None Seen [facility]2022-03-26 21:03:00 Test Item Value Reference Range Interpretation Comments Glucose Lvl (test code = Glucose Lvl) 126 70-99 [place] 872842-03-26 21:03:00 Test Item Value Reference Range Interpretation Comments BUN (test code = BUN) 16 7-22 [place] 872842-03-26 21:03:00 Test Item Value Reference Range Interpretation Comments Creatinine Lvl (test code = Creatinine 0.76 0.50-1.40 Lvl) [facility]2022-03-26 21:03:00 Test Item Value Reference Range Interpretation Comments Sodium Lvl (test code = Sodium Lvl) 140 135-145 [place] 872842-03-26 21:03:00 Test Item Value Reference Range Interpretation Comments Potassium Lvl (test code = Potassium 3.3 3.5-5.1 Lvl) [facility]2022-03-26 21:03:00 Test Item Value Reference Range Interpretation Comments Chloride Lvl (test code = Chloride Lvl) 111 95-109 [place] 872842-03-26 21:03:00 Test Item Value Reference Range Interpretation Comments CO2 (test code = CO2) 22 24-32 [place] 872842-03-26 21:03:00 Test Item Value Reference Range Interpretation Comments Calcium Lvl (test code = Calcium Lvl) 8.5 8.5-10.5 [facility]2022-03-26 21:03:00 Test Item Value Reference Range Interpretation Comments AGAP (test code = AGAP) 10.3 10.0-20.0 [place] 872842-03-26 21:03:00 Test Item Value Reference Range Interpretation Comments eGFR (test code = eGFR) 117 [facility]2022-03-26 21:03:00 Test Item Value Reference Range Interpretation Comments Lactic Acid Lvl (test code = Lactic 1.1 0.5-2.2 Acid Lvl) [facility] TylerOdvozjdJPEAIQVYCE3101-30-22 21:03:00 Test Item Value Reference Range Interpretation Comments Segs (test code = Segs) 68.9 45.0-75.0 [place] 122332-03-26 21:03:00 Test Item Value Reference Range Interpretation Comments Lymphocytes (test code = Lymphocytes) 20.4 20.0-40.0 [place] 122332-03-26 21:03:00 Test Item Value Reference Range Interpretation Comments Monocytes (test code = Monocytes) 8.2 2.0-12.0 [place] 122332-03-26 21:03:00 Test Item Value Reference Range Interpretation Comments Eosinophils (test code = 2.2 See_Comment [A utomated message] The Eosinophils) system which ge nerated this result tra nsmitted reference range : <=4.0. The reference r boubacar was not used to int erpret this result as normal/abnormal . [place] 122332-03-26 21:03:00 Test Item Value Reference Range Interpretation Comments Basophils (test code = 0.3 See_Comment [Aut omated message] The Basophils) system which ge nerated this result tra nsmitted reference range : <=1.0. The reference r boubacar was not used to int erpret this result as normal/abnormal . [place] 122332-03-26 21:03:00 Test Item Value Reference Range Interpretation Comments Neutrophils # (test code = Neutrophils 5.5 1.5-8.1 #) [place] 122332-03-26 21:03:00 Test Item Value Reference Range Interpretation Comments Lymphocytes # (test code = Lymphocytes 1.6 1.0-5.5 #) [place] 122332-03-26 21:03:00 Test Item Value Reference Range Interpretation Comments Monocytes # (test code 0.7 See_Comment [Aut omated message] The = Monocytes #) system which generated this result tra nsmitted reference range : <=0.8. The reference r boubacar was not used to int erpret this result as normal/abnormal . [place] 122332-03-26 21:03:00 Test Item Value Reference Range Interpretation Comments Eosinophils # (test code 0.2 See_Comment [A utomated message] The = Eosinophils #) system whic h generated this result tra nsmitted reference range : <=0.5. The reference r boubacar was not used to int erpret this result as normal/abnormal . [facility] [id number] 21:03:00 Test Item Value Reference Range Interpretation Comments WBC (test code = WBC) 8.0 3.7-10.4 [facility] [id number] 21:03:00 Test Item Value Reference Range Interpretation Comments RBC (test code = RBC) 5.37 4.70-6.10 [facility] [id number] 21:03:00 Test Item Value Reference Range Interpretation Comments Hgb (test code = Hgb) 15.9 14.0-18.0 [facility] [id number] 21:03:00 Test Item Value Reference Range Interpretation Comments Hct (test code = Hct) 47.3 42.0-54.0 [facility] TylerRhzcnvyUEHZNYXTGX1801-75-25 21:03:00 Test Item Value Reference Range Interpretation Comments MCV (test code = MCV) 88.1 80.0-94.0 [facility] [id number] 21:03:00 Test Item Value Reference Range Interpretation Comments MCH (test code = MCH) 29.6 pg 27.0-31.0 [facility] [id number] 21:03:00 Test Item Value Reference Range Interpretation Comments MCHC (test code = MCHC) 33.6 32.0-36.0 [facility] TylerEneavvfCJZQVTVPOP1648-82-25 21:03:00 Test Item Value Reference Range Interpretation Comments RDW (test code = RDW) 15.3 11.5-14.5 [facility] [id number] 21:03:00 Test Item Value Reference Range Interpretation Comments Platelet (test code = Platelet) 370 133-450 [facility] [id number] 21:03:00 Test Item Value Reference Range Interpretation Comments MPV (test code = MPV) 8.1 7.4-10.4 [facility]2022-03-26 21:03:00 Test Item Value Reference Range Interpretation Comments UA Comment 1 (test Suboptimal specimen code = UA Comment 1) received. Results may be inaccurate due to the age of the specimen. Interpret results with caution. [facility]2022-03-26 21:03:00 Test Item Value Reference Range Interpretation Comments UA Color (test code = Yellow *NA*(10/07/21 UA Color) 4:03 PM) [facility] AND [id number] 21:03:00 Test Item Value Reference Range Interpretation Comments UA Turbidity (test code Slight *ABN*(10/07/21 = UA Turbidity) 4:03 PM) [facility] AND [id number] 21:03:00 Test Item Value Reference Range Interpretation Comments UA Spec Grav (test code = UA Spec 1.015 1 Grav) [facility] AND [id number] 21:03:00 Test Item Value Reference Range Interpretation Comments UA pH (test code = UA pH) 5.0 1 5.0-8.0 [facility] AND [id number] 21:03:00 Test Item Value Reference Range Interpretation Comments UA Protein (test code = UA Negative mg/dL Protein) [facility] AND [id number] 21:03:00 Test Item Value Reference Range Interpretation Comments UA Glucose (test code = UA Negative mg/dL Glucose) [facility] AND [id number] 21:03:00 Test Item Value Reference Range Interpretation Comments UA Ketones (test code = UA Negative mg/dL Ketones) [facility] AND [id number] 21:03:00 Test Item Value Reference Range Interpretation Comments UA Bili (test code = Negative *NA*(10/07/21 UA Bili) 4:03 PM) [facility] AND [id number] 21:03:00 Test Item Value Reference Range Interpretation Comments UA Blood (test code = Negative (10/07/21 4:03 UA Blood) PM) [facility] AND [id number] 21:03:00 Test Item Value Reference Range Interpretation Comments UA Urobilinogen (test code = UA no gt 0.1-1.0 Urobilinogen) [facility] AND [id number] 21:03:00 Test Item Value Reference Range Interpretation Comments UA Nitrite (test code Negative (10/07/21 4:03 = UA Nitrite) PM) [facility] AND [id number] 21:03:00 Test Item Value Reference Range Interpretation Comments UA Leuk Est (test code Large *ABN*(10/07/21 = UA Leuk Est) 4:03 PM) [facility] AND [id number] 21:03:00 Test Item Value Reference Range Interpretation Comments UA WBC (test code = 64 See_Comment [Automa lester message] The UA WBC) system which ge nerated this result transmit lester reference range : <=5. The reference range was not used to interpr et this result as dany l/abnormal. [facility] AND [id number] 21:03:00 Test Item Value Reference Range Interpretation Comments UA RBC (test code = 2 See_Comment [Automa lester message] The UA RBC) system which ge nerated this result transmit lester reference range : <=2. The reference range was not used to interpr et this result as dany l/abnormal. [facility] AND [id number] 21:03:00 Test Item Value Reference Range Interpretation Comments UA Mucus (test code = UA Mucus) Few /LPF [facility] AND [id number] 21:03:00 Test Item Value Reference Range Interpretation Comments UA Sq Epi (test code = UA Sq Epi) None Seen [facility]2022-03-26 21:03:00 Test Item Value Reference Range Interpretation Comments Glucose Lvl (test code = Glucose Lvl) 126 70-99 [facility]2022-03-26 21:03:00 Test Item Value Reference Range Interpretation Comments BUN (test code = BUN) 16 7-22 [place] 872842-03-26 21:03:00 Test Item Value Reference Range Interpretation Comments Creatinine Lvl (test code = Creatinine 0.76 0.50-1.40 Lvl) [place] 872842-03-26 21:03:00 Test Item Value Reference Range Interpretation Comments Sodium Lvl (test code = Sodium Lvl) 140 135-145 [place] 872842-03-26 21:03:00 Test Item Value Reference Range Interpretation Comments Potassium Lvl (test code = Potassium 3.3 3.5-5.1 Lvl) [facility]2022-03-26 21:03:00 Test Item Value Reference Range Interpretation Comments Chloride Lvl (test code = Chloride Lvl) 111 95-109 [facility] [id number] 21:03:00 Test Item Value Reference Range Interpretation Comments CO2 (test code = CO2) 22 24-32 [place] 872842-03-26 21:03:00 Test Item Value Reference Range Interpretation Comments Calcium Lvl (test code = Calcium Lvl) 8.5 8.5-10.5 [place] 872842-03-26 21:03:00 Test Item Value Reference Range Interpretation Comments AGAP (test code = AGAP) 10.3 10.0-20.0 [place] 872842-03-26 21:03:00 Test Item Value Reference Range Interpretation Comments eGFR (test code = eGFR) 117 [place] 872842-03-26 21:03:00 Test Item Value Reference Range Interpretation Comments Lactic Acid Lvl (test code = Lactic 1.1 0.5-2.2 Acid Lvl) [place] 122332-03-26 21:03:00 Test Item Value Reference Range Interpretation Comments Segs (test code = Segs) 68.9 45.0-75.0 [place] 122332-03-26 21:03:00 Test Item Value Reference Range Interpretation Comments Lymphocytes (test code = Lymphocytes) 20.4 20.0-40.0 [place] 122332-03-26 21:03:00 Test Item Value Reference Range Interpretation Comments Monocytes (test code = Monocytes) 8.2 2.0-12.0 [place] 122332-03-26 21:03:00 Test Item Value Reference Range Interpretation Comments Eosinophils (test code = 2.2 See_Comment [A utomated message] The Eosinophils) system which ge nerated this result tra nsmitted reference range : <=4.0. The reference r boubacar was not used to int erpret this result as normal/abnormal . [place] 122332-03-26 21:03:00 Test Item Value Reference Range Interpretation Comments Basophils (test code = 0.3 See_Comment [Aut omated message] The Basophils) system which ge nerated this result tra nsmitted reference range : <=1.0. The reference r boubacar was not used to int erpret this result as normal/abnormal . [place] 122332-03-26 21:03:00 Test Item Value Reference Range Interpretation Comments Neutrophils # (test code = Neutrophils 5.5 1.5-8.1 #) [place] 122332-03-26 21:03:00 Test Item Value Reference Range Interpretation Comments Lymphocytes # (test code = Lymphocytes 1.6 1.0-5.5 #) [place] 122332-03-26 21:03:00 Test Item Value Reference Range Interpretation Comments Monocytes # (test code 0.7 See_Comment [Aut omated message] The = Monocytes #) system which generated this result tra nsmitted reference range : <=0.8. The reference r boubacar was not used to int erpret this result as normal/abnormal . [place] 122332-03-26 21:03:00 Test Item Value Reference Range Interpretation Comments Eosinophils # (test code 0.2 See_Comment [A utomated message] The = Eosinophils #) system whic h generated this result tra nsmitted reference range : <=0.5. The reference r boubacar was not used to int erpret this result as normal/abnormal . [place] 122332-03-26 21:03:00 Test Item Value Reference Range Interpretation Comments WBC (test code = WBC) 8.0 3.7-10.4 [place] [address]-03-26 21:03:00 Test Item Value Reference Range Interpretation Comments RBC (test code = RBC) 5.37 4.70-6.10 [place] [address]-03-26 21:03:00 Test Item Value Reference Range Interpretation Comments Hgb (test code = Hgb) 15.9 14.0-18.0 [place] [address]-03-26 21:03:00 Test Item Value Reference Range Interpretation Comments Hct (test code = Hct) 47.3 42.0-54.0 [place] [address]-03-26 21:03:00 Test Item Value Reference Range Interpretation Comments MCV (test code = MCV) 88.1 80.0-94.0 [place] [address]-03-26 21:03:00 Test Item Value Reference Range Interpretation Comments MCH (test code = MCH) 29.6 pg 27.0-31.0 [place] [address]-03-26 21:03:00 Test Item Value Reference Range Interpretation Comments MCHC (test code = MCHC) 33.6 32.0-36.0 [facility] [id number] 21:03:00 Test Item Value Reference Range Interpretation Comments RDW (test code = RDW) 15.3 11.5-14.5 [facility] [id number] 21:03:00 Test Item Value Reference Range Interpretation Comments Platelet (test code = Platelet) 370 133-450 [facility] [id number] 21:03:00 Test Item Value Reference Range Interpretation Comments MPV (test code = MPV) 8.1 7.4-10.4 [facility] AND [id number] 21:03:00 Test Item Value Reference Range Interpretation Comments UA Comment 1 (test Suboptimal specimen code = UA Comment 1) received. Results may be inaccurate due to the age of the specimen. Interpret results with caution. [facility] AND [id number] 21:03:00 Test Item Value Reference Range Interpretation Comments UA Color (test code = Yellow *NA*(10/07/21 UA Color) 4:03 PM) [facility] AND [id number] 21:03:00 Test Item Value Reference Range Interpretation Comments UA Turbidity (test code Slight *ABN*(10/07/21 = UA Turbidity) 4:03 PM) [facility] AND [id number] 21:03:00 Test Item Value Reference Range Interpretation Comments UA Spec Grav (test code = UA Spec 1.015 1 Grav) [facility] AND [id number] 21:03:00 Test Item Value Reference Range Interpretation Comments UA pH (test code = UA pH) 5.0 1 5.0-8.0 [facility] AND [id number] 21:03:00 Test Item Value Reference Range Interpretation Comments UA Protein (test code = UA Negative mg/dL Protein) [facility] AND [id number] 21:03:00 Test Item Value Reference Range Interpretation Comments UA Glucose (test code = UA Negative mg/dL Glucose) [facility] AND [id number] 21:03:00 Test Item Value Reference Range Interpretation Comments UA Ketones (test code = UA Negative mg/dL Ketones) [facility] AND [id number] 21:03:00 Test Item Value Reference Range Interpretation Comments UA Bili (test code = Negative *NA*(10/07/21 UA Bili) 4:03 PM) [facility] [id number] 21:03:00 Test Item Value Reference Range Interpretation Comments UA Blood (test code = Negative (10/07/21 4:03 UA Blood) PM) [facility] [id number] 21:03:00 Test Item Value Reference Range Interpretation Comments UA Urobilinogen (test code = UA no gt 0.1-1.0 Urobilinogen) [facility] [id number] 21:03:00 Test Item Value Reference Range Interpretation Comments UA Nitrite (test code Negative (10/07/21 4:03 = UA Nitrite) PM) [facility] [id number] 21:03:00 Test Item Value Reference Range Interpretation Comments UA Leuk Est (test code Large *ABN*(10/07/21 = UA Leuk Est) 4:03 PM) [facility] [id number] 21:03:00 Test Item Value Reference Range Interpretation Comments UA WBC (test code = 64 See_Comment [Automa lester message] The UA WBC) system which ge nerated this result transmit lester reference range : <=5. The reference range was not used to interpr et this result as dany l/abnormal. [facility] [id number] 21:03:00 Test Item Value Reference Range Interpretation Comments UA RBC (test code = 2 See_Comment [Automa lester message] The UA RBC) system which ge nerated this result transmit lester reference range : <=2. The reference range was not used to interpr et this result as dany l/abnormal. [facility] [id number] 21:03:00 Test Item Value Reference Range Interpretation Comments UA Mucus (test code = UA Mucus) Few /LPF [facility] [id number] 21:03:00 Test Item Value Reference Range Interpretation Comments UA Sq Epi (test code = UA Sq Epi) None Seen [facility]annCHEM [id number] 09:58:00 Test Item Value Reference Range Interpretation Comments Lactic Acid Lvl (test code = Lactic 2.4 0.5-2.2 Acid Lvl) [facility] [id number] 09:58:00 Test Item Value Reference Range Interpretation Comments Sed Rate (test code = 13 See_Comment [Auto mated message] The Sed Rate) system which ge nerated this result transmit lester reference range : <=15. The reference range was not used to interpr et this result as dany l/abnormal. [address]03-26 09:58:00 Test Item Value Reference Range Interpretation Comments C-REACTIVE PROTEIN (test code = 10.6 C-REACTIVE PROTEIN) [address]03-26 09:58:00 Test Item Value Reference Range Interpretation Comments Lactic Acid Lvl (test code = Lactic 2.4 0.5-2.2 Acid Lvl) [address]03-26 09:58:00 Test Item Value Reference Range Interpretation Comments Sed Rate (test code = 13 See_Comment [Auto mated message] The Sed Rate) system which ge nerated this result transmit lester reference range : <=15. The reference range was not used to interpr et this result as dany l/abnormal. [address]03-26 09:58:00 Test Item Value Reference Range Interpretation Comments C-REACTIVE PROTEIN (test code = 10.6 C-REACTIVE PROTEIN) [address]03-26 09:58:00 Test Item Value Reference Range Interpretation Comments Lactic Acid Lvl (test code = Lactic 2.4 0.5-2.2 Acid Lvl) [address]03-26 09:58:00 Test Item Value Reference Range Interpretation Comments Sed Rate (test code = 13 See_Comment [Auto mated message] The Sed Rate) system which ge nerated this result transmit lester reference range : <=15. The reference range was not used to interpr et this result as dany l/abnormal. [address]03-26 09:58:00 Test Item Value Reference Range Interpretation Comments C-REACTIVE PROTEIN (test code = 10.6 C-REACTIVE PROTEIN) [address]03-26 09:58:00 Test Item Value Reference Range Interpretation Comments Lactic Acid Lvl (test code = Lactic 2.4 0.5-2.2 Acid Lvl) [address]03-26 09:58:00 Test Item Value Reference Range Interpretation Comments Sed Rate (test code = 13 See_Comment [Auto mated message] The Sed Rate) system which ge nerated this result transmit lester reference range : <=15. The reference range was not used to interpr et this result as dany l/abnormal. [place] [address]-03-26 09:58:00 Test Item Value Reference Range Interpretation Comments C-REACTIVE PROTEIN (test code = 10.6 C-REACTIVE PROTEIN) [facility] [id number] 09:58:00 Test Item Value Reference Range Interpretation Comments Lactic Acid Lvl (test code = Lactic 2.4 0.5-2.2 Acid Lvl) [address]03-26 09:58:00 Test Item Value Reference Range Interpretation Comments Sed Rate (test code = 13 See_Comment [Auto mated message] The Sed Rate) system which ge nerated this result transmit lester reference range : <=15. The reference range was not used to interpr et this result as dany l/abnormal. [place] [address]-03-26 09:58:00 Test Item Value Reference Range Interpretation Comments C-REACTIVE PROTEIN (test code = 10.6 C-REACTIVE PROTEIN) [address]03-26 09:58:00 Test Item Value Reference Range Interpretation Comments Lactic Acid Lvl (test code = Lactic 2.4 0.5-2.2 Acid Lvl) [place] [address]-03-26 09:58:00 Test Item Value Reference Range Interpretation Comments Sed Rate (test code = 13 See_Comment [Auto mated message] The Sed Rate) system which ge nerated this result transmit lester reference range : <=15. The reference range was not used to interpr et this result as dany l/abnormal. [place] [address]-03-26 09:58:00 Test Item Value Reference Range Interpretation Comments C-REACTIVE PROTEIN (test code = 10.6 C-REACTIVE PROTEIN) [place] 316312-03-25 18:36:00 Test Item Value Reference Range Interpretation Comments Protein CSF (test code = Protein CSF) 14 15-45 [place] 316312-03-25 18:36:00 Test Item Value Reference Range Interpretation Comments Glucose CSF (test code = Glucose CSF) 67 45-80 [place] 316312-03-25 18:36:00 Test Item Value Reference Range Interpretation Comments Tube Num CSF (test xxxxxxx (10/06/21 1:36 code = Tube Num CSF) PM) [facility]2022-03-25 18:36:00 Test Item Value Reference Range Interpretation Comments Color CSF (test code Colorless (10/06/21 1:36 = Color CSF) PM) [facility]2022-03-25 18:36:00 Test Item Value Reference Range Interpretation Comments Clarity CSF (test code = Clear (10/06/21 1:36 Clarity CSF) PM) [facility]2022-03-25 18:36:00 Test Item Value Reference Range Interpretation Comments Supernat CSF (test Colorless (10/06/21 1:36 code = Supernat CSF) PM) [facility]2022-03-25 18:36:00 Test Item Value Reference Range Interpretation Comments Nucleated Cells CSF 0 See_Comment [Automa lester message] The (test code = Nucleated syste m which generated Cells CSF) this result tra nsmitted reference range : <=53. The reference r boubacar was not used to int erpret this result as normal/abnormal . [facility]2022-03-25 18:36:00 Test Item Value Reference Range Interpretation Comments RBC CSF (test code = 0 See_Comment [Autom ated message] The RBC CSF) system which ge nerated this result transmit lester reference range : <=03. The reference range was not used to interpr et this result as dany l/abnormal. [facility]2022-03-25 18:36:00 Test Item Value Reference Range Interpretation Comments Comment CSF (test Differential not code = Comment CSF) performed on WBC count of less than 5. [facility] [id number] 18:36:00 Test Item Value Reference Range Interpretation Comments Gram Stain Report Gram Stain Performed By: (test code = Gram [facility] Stain Report) [facility] w/Gram [id number] 18:36:00 Test Item Value Reference Range Interpretation Comments Culture: CSF w/Gram Stain (test No Growth code = Culture: CSF w/Gram Stain) [facility]2022-03-25 18:36:00 Test Item Value Reference Range Interpretation Comments Protein CSF (test code = Protein CSF) 14 15-[address] [facility] [id number] 18:36:00 Test Item Value Reference Range Interpretation Comments Glucose CSF (test code = Glucose CSF) 67 45-80 [facility]2022-03-25 18:36:00 Test Item Value Reference Range Interpretation Comments Tube Num CSF (test xxxxxxx (10/06/21 1:36 code = Tube Num CSF) PM) [facility]2022-03-25 18:36:00 Test Item Value Reference Range Interpretation Comments Color CSF (test code Colorless (10/06/21 1:36 = Color CSF) PM) [facility] [id number] 18:36:00 Test Item Value Reference Range Interpretation Comments Clarity CSF (test code = Clear (10/06/21 1:36 Clarity CSF) PM) [facility]2022-03-25 18:36:00 Test Item Value Reference Range Interpretation Comments Supernat CSF (test Colorless (10/06/21 1:36 code = Supernat CSF) PM) [facility]2022-03-25 18:36:00 Test Item Value Reference Range Interpretation Comments Nucleated Cells CSF 0 See_Comment [Automa lester message] The (test code = Nucleated syste m which generated Cells CSF) this result tra nsmitted reference range : <=53. The reference r boubacar was not used to int erpret this result as normal/abnormal . [facility]2022-03-25 18:36:00 Test Item Value Reference Range Interpretation Comments RBC CSF (test code = 0 See_Comment [Autom ated message] The RBC CSF) system which ge nerated this result transmit lester reference range : <=03. The reference range was not used to interpr et this result as dany l/abnormal. [facility] [id number] 18:36:00 Test Item Value Reference Range Interpretation Comments Comment CSF (test Differential not code = Comment CSF) performed on WBC count of less than 5. [facility] [id number] 18:36:00 Test Item Value Reference Range Interpretation Comments Gram Stain Report Gram Stain Performed By: (test code = Gram [facility] [place] Stain Report) [facility] CSF w/Gram [id number] 18:36:00 Test Item Value Reference Range Interpretation Comments Culture: CSF w/Gram Stain (test No Growth code = Culture: CSF w/Gram Stain) [facility]2022-03-25 18:36:00 Test Item Value Reference Range Interpretation Comments Protein CSF (test code = Protein CSF) 14 15-45 [facility]2022-03-25 18:36:00 Test Item Value Reference Range Interpretation Comments Glucose CSF (test code = Glucose CSF) 67 45-80 [facility]2022-03-25 18:36:00 Test Item Value Reference Range Interpretation Comments Tube Num CSF (test xxxxxxx (10/06/21 1:36 code = Tube Num CSF) PM) [facility]2022-03-25 18:36:00 Test Item Value Reference Range Interpretation Comments Color CSF (test code Colorless (10/06/21 1:36 = Color CSF) PM) [facility]2022-03-25 18:36:00 Test Item Value Reference Range Interpretation Comments Clarity CSF (test code = Clear (10/06/21 1:36 Clarity CSF) PM) [facility]2022-03-25 18:36:00 Test Item Value Reference Range Interpretation Comments Supernat CSF (test Colorless (10/06/21 1:36 code = Supernat CSF) PM) [facility]2022-03-25 18:36:00 Test Item Value Reference Range Interpretation Comments Nucleated Cells CSF 0 See_Comment [Automa lester message] The (test code = Nucleated syste m which generated Cells CSF) this result tra nsmitted reference range : <=53. The reference r boubacar was not used to int erpret this result as normal/abnormal . [facility]2022-03-25 18:36:00 Test Item Value Reference Range Interpretation Comments RBC CSF (test code = 0 See_Comment [Autom ated message] The RBC CSF) system which ge nerated this result transmit lester reference range : <=03. The reference range was not used to interpr et this result as dany l/abnormal. [facility]2022-03-25 18:36:00 Test Item Value Reference Range Interpretation Comments Comment CSF (test Differential not code = Comment CSF) performed on WBC count of less than 5. [facility] [id number] 18:36:00 Test Item Value Reference Range Interpretation Comments Gram Stain Report Gram Stain Performed By: (test code = Gram [facility] Stain Report) [facility] CSF w/Gram [id number] 18:36:00 Test Item Value Reference Range Interpretation Comments Culture: CSF w/Gram Stain (test No Growth code = Culture: CSF w/Gram Stain) [facility] [id number] 18:36:00 Test Item Value Reference Range Interpretation Comments Protein CSF (test code = Protein CSF) 14 15-45 [facility]2022-03-25 18:36:00 Test Item Value Reference Range Interpretation Comments Glucose CSF (test code = Glucose CSF) 67 45-80 [facility]2022-03-25 18:36:00 Test Item Value Reference Range Interpretation Comments Tube Num CSF (test xxxxxxx (10/06/21 1:36 code = Tube Num CSF) PM) [facility]2022-03-25 18:36:00 Test Item Value Reference Range Interpretation Comments Color CSF (test code Colorless (10/06/21 1:36 = Color CSF) PM) [facility]2022-03-25 18:36:00 Test Item Value Reference Range Interpretation Comments Clarity CSF (test code = Clear (10/06/21 1:36 Clarity CSF) PM) [facility]2022-03-25 18:36:00 Test Item Value Reference Range Interpretation Comments Supernat CSF (test Colorless (10/06/21 1:36 code = Supernat CSF) PM) [facility]2022-03-25 18:36:00 Test Item Value Reference Range Interpretation Comments Nucleated Cells CSF 0 See_Comment [Automa lester message] The (test code = Nucleated syste m which generated Cells CSF) this result tra nsmitted reference range : <=53. The reference r boubacar was not used to int erpret this result as normal/abnormal . [facility]2022-03-25 18:36:00 Test Item Value Reference Range Interpretation Comments RBC CSF (test code = 0 See_Comment [Autom ated message] The RBC CSF) system which ge nerated this result transmit lester reference range : <=03. The reference range was not used to interpr et this result as dany l/abnormal. [facility]2022-03-25 18:36:00 Test Item Value Reference Range Interpretation Comments Comment CSF (test Differential not code = Comment CSF) performed on WBC count of less than 5. [facility] [id number] 18:36:00 Test Item Value Reference Range Interpretation Comments Gram Stain Report Gram Stain Performed By: (test code = Gram [facility] [place] Stain Report) [facility] CSF w/Gram [id number] 18:36:00 Test Item Value Reference Range Interpretation Comments Culture: CSF w/Gram Stain (test No Growth code = Culture: CSF w/Gram Stain) [facility] [id number] 18:36:00 Test Item Value Reference Range Interpretation Comments Protein CSF (test code = Protein CSF) 14 15-45 [facility]2022-03-25 18:36:00 Test Item Value Reference Range Interpretation Comments Glucose CSF (test code = Glucose CSF) 67 45-80 [facility]2022-03-25 18:36:00 Test Item Value Reference Range Interpretation Comments Tube Num CSF (test xxxxxxx (10/06/21 1:36 code = Tube Num CSF) PM) [facility]2022-03-25 18:36:00 Test Item Value Reference Range Interpretation Comments Color CSF (test code Colorless (10/06/21 1:36 = Color CSF) PM) [facility]2022-03-25 18:36:00 Test Item Value Reference Range Interpretation Comments Clarity CSF (test code = Clear (10/06/21 1:36 Clarity CSF) PM) [facility]2022-03-25 18:36:00 Test Item Value Reference Range Interpretation Comments Supernat CSF (test Colorless (10/06/21 1:36 code = Supernat CSF) PM) [facility]2022-03-25 18:36:00 Test Item Value Reference Range Interpretation Comments Nucleated Cells CSF 0 See_Comment [Automa lester message] The (test code = Nucleated syste m which generated Cells CSF) this result tra nsmitted reference range : <=53. The reference r boubacar was not used to int erpret this result as normal/abnormal . [facility]2022-03-25 18:36:00 Test Item Value Reference Range Interpretation Comments RBC CSF (test code = 0 See_Comment [Autom ated message] The RBC CSF) system which ge nerated this result transmit lester reference range : <=03. The reference range was not used to interpr et this result as dany l/abnormal. [facility] [id number] 18:36:00 Test Item Value Reference Range Interpretation Comments Comment CSF (test Differential not code = Comment CSF) performed on WBC count of less than 5. [facility] [id number] 18:36:00 Test Item Value Reference Range Interpretation Comments Gram Stain Report Gram Stain Performed By: (test code = Gram [facility] Stain Report) [facility]: CSF w/Gram [id number] 18:36:00 Test Item Value Reference Range Interpretation Comments Culture: CSF w/Gram Stain (test No Growth code = Culture: CSF w/Gram Stain) [facility]2022-03-25 18:36:00 Test Item Value Reference Range Interpretation Comments Protein CSF (test code = Protein CSF) 14 15-45 [facility]2022-03-25 18:36:00 Test Item Value Reference Range Interpretation Comments Glucose CSF (test code = Glucose CSF) 67 45-80 [facility]2022-03-25 18:36:00 Test Item Value Reference Range Interpretation Comments Tube Num CSF (test xxxxxxx (10/06/21 1:36 code = Tube Num CSF) PM) [facility]2022-03-25 18:36:00 Test Item Value Reference Range Interpretation Comments Color CSF (test code Colorless (10/06/21 1:36 = Color CSF) PM) [facility]2022-03-25 18:36:00 Test Item Value Reference Range Interpretation Comments Clarity CSF (test code = Clear (10/06/21 1:36 Clarity CSF) PM) [facility]2022-03-25 18:36:00 Test Item Value Reference Range Interpretation Comments Supernat CSF (test Colorless (10/06/21 1:36 code = Supernat CSF) PM) [facility]2022-03-25 18:36:00 Test Item Value Reference Range Interpretation Comments Nucleated Cells CSF 0 See_Comment [Automa lester message] The (test code = Nucleated syste m which generated Cells CSF) this result tra nsmitted reference range : <=53. The reference r boubacar was not used to int erpret this result as normal/abnormal . [facility]Tangent[facility] [id number] 18:36:00 Test Item Value Reference Range Interpretation Comments RBC CSF (test code = 0 See_Comment [Autom ated message] The RBC CSF) system which ge nerated this result transmit lester reference range : <=03. The reference range was not used to interpr et this result as dany l/abnormal. [facility] [id number] 18:36:00 Test Item Value Reference Range Interpretation Comments Comment CSF (test Differential not code = Comment CSF) performed on WBC count of less than 5. [facility] [id number] 18:36:00 Test Item Value Reference Range Interpretation Comments Gram Stain Report Gram Stain Performed By: (test code = Gram [facility] Stain Report) [facility] CSF w/Gram [id number] 18:36:00 Test Item Value Reference Range Interpretation Comments Culture: CSF w/Gram Stain (test No Growth code = Culture: CSF w/Gram Stain) [facility] [id number] 08:28:00 Test Item Value Reference Range Interpretation Comments Coronavirus (COVID-19) Not Detected (10/06/21 OUMOU (test code = 3:28 AM) Coronavirus (COVID-19) OUMOU) [id number] 08:28:00 Test Item Value Reference Range Interpretation Comments Coronavirus (COVID-19) Not Detected (10/06/21 OUMOU (test code = 3:28 AM) Coronavirus (COVID-19) OUMOU) [facility] C[id number] 08:28:00 Test Item Value Reference Range Interpretation Comments Coronavirus (COVID-19) Not Detected (10/06/21 OUMOU (test code = 3:28 AM) Coronavirus (COVID-19) OUMOU) [place] [address]-03-25 08:28:00 Test Item Value Reference Range Interpretation Comments Coronavirus (COVID-19) Not Detected (10/06/21 OUMOU (test code = 3:28 AM) Coronavirus (COVID-19) OUMOU) [facility] [id number] 08:28:00 Test Item Value Reference Range Interpretation Comments Coronavirus (COVID-19) Not Detected (10/06/21 OUMOU (test code = 3:28 AM) Coronavirus (COVID-19) OUMOU) [facility] [id number] 08:28:00 Test Item Value Reference Range Interpretation Comments Coronavirus (COVID-19) Not Detected (10/06/21 OUMOU (test code = 3:28 AM) Coronavirus (COVID-19) OUMOU) [facility] [id number] 06:48:00 Test Item Value Reference Range Interpretation Comments Antibody Scrn (test Negative (10/06/21 1:48 code = Antibody Scrn) AM) [facility] [id number] 06:48:00 Test Item Value Reference Range Interpretation Comments ABO/Rh (test code = ABO/Rh) AB POS [facility] Ca[id number] 06:48:00 Test Item Value Reference Range Interpretation Comments Segs (test code = Segs) 70.8 45.0-75.0 [facility] [id number] 06:48:00 Test Item Value Reference Range Interpretation Comments Lymphocytes (test code = Lymphocytes) 20.8 20.0-40.0 [facility] [id number] 06:48:00 Test Item Value Reference Range Interpretation Comments Monocytes (test code = Monocytes) 5.8 2.0-12.0 [facility] CampusOwzcdsoLSFPZBNFRZ5949-08-36 06:48:00 Test Item Value Reference Range Interpretation Comments Eosinophils (test code = 2.3 See_Comment [A utomated message] The Eosinophils) system which ge nerated this result tra nsmitted reference range : <=4.0. The reference r boubacar was not used to int erpret this result as normal/abnormal . [facility] HospitalJtlmeifSRXPRZUGXM0132-26-47 06:48:00 Test Item Value Reference Range Interpretation Comments Basophils (test code = 0.3 See_Comment [Aut omated message] The Basophils) system which ge nerated this result tra nsmitted reference range : <=1.0. The reference r boubacar was not used to int erpret this result as normal/abnormal . [facility] CampusHezskvxUTDLHPKMXD6551-20-22 06:48:00 Test Item Value Reference Range Interpretation Comments Neutrophils # (test code = Neutrophils 8.4 1.5-8.1 #) [facility]UimwcmhPNHPVRYVRI1244-26-25 06:48:00 Test Item Value Reference Range Interpretation Comments Lymphocytes # (test code = Lymphocytes 2.5 1.0-5.5 #) [facility] TylerCsiikdgFFUHDCVRSK7654-50-13 06:48:00 Test Item Value Reference Range Interpretation Comments Monocytes # (test code 0.7 See_Comment [Aut omated message] The = Monocytes #) system which generated this result tra nsmitted reference range : <=0.8. The reference r boubacar was not used to int erpret this result as normal/abnormal . [facility] TylerIwglstgLLFJBUSJFY4793-02-26 06:48:00 Test Item Value Reference Range Interpretation Comments Eosinophils # (test code 0.3 See_Comment [A utomated message] The = Eosinophils #) system whic h generated this result tra nsmitted reference range : <=0.5. The reference r boubacar was not used to int erpret this result as normal/abnormal . [facility] [id number] 06:48:00 Test Item Value Reference Range Interpretation Comments WBC X 10x3 (test code = WBC X 10x3) 11.9 3.7-10.4 [place] 122332-03-25 06:48:00 Test Item Value Reference Range Interpretation Comments RBC X 10x6 (test code = RBC X 10x6) 5.95 4.70-6.10 [facility] TylerSwivdwlRUZFLSBITU0876-83-85 06:48:00 Test Item Value Reference Range Interpretation Comments Hgb (test code = Hgb) 17.9 14.0-18.0 [place] 122332-03-25 06:48:00 Test Item Value Reference Range Interpretation Comments Hct (test code = Hct) 52.0 42.0-54.0 [place] 122332-03-25 06:48:00 Test Item Value Reference Range Interpretation Comments MCV (test code = MCV) 87.5 80.0-94.0 [place] [address]-03-25 06:48:00 Test Item Value Reference Range Interpretation Comments MCH (test code = MCH) 30.2 pg 27.0-31.0 [place] 122332-03-25 06:48:00 Test Item Value Reference Range Interpretation Comments MCHC (test code = MCHC) 34.5 32.0-36.0 [facility] [id number] 06:48:00 Test Item Value Reference Range Interpretation Comments RDW (test code = RDW) 15.4 11.5-14.5 [facility] TylerDswalauJMDIAFSRGV8019-74-04 06:48:00 Test Item Value Reference Range Interpretation Comments Platelet (test code = Platelet) 414 133-450 [facility] TylerHomknrgKZHITWNEUC4338-12-34 06:48:00 Test Item Value Reference Range Interpretation Comments MPV (test code = MPV) 8.5 7.4-10.4 [facility] TylerOstpctrKPWCBTYTOZ1357-29-12 06:48:00 Test Item Value Reference Range Interpretation Comments PT (test code = PT) 12.9 s 12.0-14.7 [facility] TylerBrsmxaoZPAQPTWAPB6301-94-66 06:48:00 Test Item Value Reference Range Interpretation Comments INR (test code = INR) 0.98 1 0.85-1.17 [facility] TylerHiczkgxZDUUQLLGUH2052-55-71 06:48:00 Test Item Value Reference Range Interpretation Comments PTT (test code = PTT) 31.4 s 22.9-35.8 [facility] [id number] 06:48:00 Test Item Value Reference Range Interpretation Comments Antibody Scrn (test Negative (10/06/21 1:48 code = Antibody Scrn) AM) [facility] [id number] 06:48:00 Test Item Value Reference Range Interpretation Comments ABO/Rh (test code = ABO/Rh) AB POS [facility] TylerUjshbgmJKRYCPXDCG8273-51-06 06:48:00 Test Item Value Reference Range Interpretation Comments Segs (test code = Segs) 70.8 45.0-75.0 [facility] TylerDgyilwbJILKKHJYNT3432-29-66 06:48:00 Test Item Value Reference Range Interpretation Comments Lymphocytes (test code = Lymphocytes) 20.8 20.0-40.0 [place] 122332-03-25 06:48:00 Test Item Value Reference Range Interpretation Comments Monocytes (test code = Monocytes) 5.8 2.0-12.0 [facility] TylerImefnhaXUQDECHVOS9550-62-12 06:48:00 Test Item Value Reference Range Interpretation Comments Eosinophils (test code = 2.3 See_Comment [A utomated message] The Eosinophils) system which ge nerated this result tra nsmitted reference range : <=4.0. The reference r boubacar was not used to int erpret this result as normal/abnormal . [facility] TylerDftzhkuUIHXQPUOSB5317-38-24 06:48:00 Test Item Value Reference Range Interpretation Comments Basophils (test code = 0.3 See_Comment [Aut omated message] The Basophils) system which ge nerated this result tra nsmitted reference range : <=1.0. The reference r boubacar was not used to int erpret this result as normal/abnormal . [facility] TylerKheoyroNMJKOTYHFM1649-93-79 06:48:00 Test Item Value Reference Range Interpretation Comments Neutrophils # (test code = Neutrophils 8.4 1.5-8.1 #) [facility] TylerStlvuoeBMHFEYIDTZ3156-65-40 06:48:00 Test Item Value Reference Range Interpretation Comments Lymphocytes # (test code = Lymphocytes 2.5 1.0-5.5 #) [facility] TylerSggsqubZZTHEEICTQ1211-47-72 06:48:00 Test Item Value Reference Range Interpretation Comments Monocytes # (test code 0.7 See_Comment [Aut omated message] The = Monocytes #) system which generated this result tra nsmitted reference range : <=0.8. The reference r boubacar was not used to int erpret this result as normal/abnormal . [facility] TylerTuxjdhgVFTNBIWYQB0296-52-45 06:48:00 Test Item Value Reference Range Interpretation Comments Eosinophils # (test code 0.3 See_Comment [A utomated message] The = Eosinophils #) system whic h generated this result tra nsmitted reference range : <=0.5. The reference r boubacar was not used to int erpret this result as normal/abnormal . [facility] TylerLkeyahwMTFPNFRAHG4565-51-60 06:48:00 Test Item Value Reference Range Interpretation Comments WBC X 10x3 (test code = WBC X 10x3) 11.9 3.7-10.4 [facility] TylerJdqrnahICSEUYFBKG9748-13-32 06:48:00 Test Item Value Reference Range Interpretation Comments RBC X 10x6 (test code = RBC X 10x6) 5.95 4.70-6.10 [facility] TylerRzudccrOBKYSDMPWC3097-53-95 06:48:00 Test Item Value Reference Range Interpretation Comments Hgb (test code = Hgb) 17.9 14.0-18.0 [place] 122332-03-25 06:48:00 Test Item Value Reference Range Interpretation Comments Hct (test code = Hct) 52.0 42.0-54.0 [facility] TylerAnvmcytDCVGHLEFKQ3840-15-23 06:48:00 Test Item Value Reference Range Interpretation Comments MCV (test code = MCV) 87.5 80.0-94.0 [facility] TylerApzuofgUNCRNGHMRB5976-80-01 06:48:00 Test Item Value Reference Range Interpretation Comments MCH (test code = MCH) 30.2 pg 27.0-31.0 [facility]YvjnvlsRCOGWQMMVN6113-65-78 06:48:00 Test Item Value Reference Range Interpretation Comments MCHC (test code = MCHC) 34.5 32.0-36.0 [facility] CampusWnkqeixVATIBQKZTH9310-04-25 06:48:00 Test Item Value Reference Range Interpretation Comments RDW (test code = RDW) 15.4 11.5-14.5 [facility] CampusAyekndsBIOSTRBZTM1989-39-62 06:48:00 Test Item Value Reference Range Interpretation Comments Platelet (test code = Platelet) 414 133-450 [facility] CampusYdprqyrDHWNPVDWCD8053-60-92 06:48:00 Test Item Value Reference Range Interpretation Comments MPV (test code = MPV) 8.5 7.4-10.4 [facility] CampusNtacpchQRMKUQUHXW1628-18-63 06:48:00 Test Item Value Reference Range Interpretation Comments PT (test code = PT) 12.9 s 12.0-14.7 [facility] CampusLwqwnujIYKBVSZNJA0696-16-29 06:48:00 Test Item Value Reference Range Interpretation Comments INR (test code = INR) 0.98 1 0.85-1.17 [facility] CampusZbeeyluZGCMZQVQGN2014-05-85 06:48:00 Test Item Value Reference Range Interpretation Comments PTT (test code = PTT) 31.4 s 22.9-35.8 [facility] XXOOLUM7772-02-54 06:48:00 Test Item Value Reference Range Interpretation Comments Antibody Scrn (test Negative (10/06/21 1:48 code = Antibody Scrn) AM) [facility] [id number] 06:48:00 Test Item Value Reference Range Interpretation Comments ABO/Rh (test code = ABO/Rh) AB POS [facility]kvprkfLAPHJIUXOR2115-82-93 06:48:00 Test Item Value Reference Range Interpretation Comments Segs (test code = Segs) 70.8 45.0-75.0 [place] 122332-03-25 06:48:00 Test Item Value Reference Range Interpretation Comments Lymphocytes (test code = Lymphocytes) 20.8 20.0-40.0 [place] [address]-03-25 06:48:00 Test Item Value Reference Range Interpretation Comments Monocytes (test code = Monocytes) 5.8 2.0-12.0 [place] [address]-03-25 06:48:00 Test Item Value Reference Range Interpretation Comments Eosinophils (test code = 2.3 See_Comment [A utomated message] The Eosinophils) system which ge nerated this result tra nsmitted reference range : <=4.0. The reference r boubacar was not used to int erpret this result as normal/abnormal . [place] [address]-03-25 06:48:00 Test Item Value Reference Range Interpretation Comments Basophils (test code = 0.3 See_Comment [Aut omated message] The Basophils) system which ge nerated this result tra nsmitted reference range : <=1.0. The reference r boubacar was not used to int erpret this result as normal/abnormal . [place] 122332-03-25 06:48:00 Test Item Value Reference Range Interpretation Comments Neutrophils # (test code = Neutrophils 8.4 1.5-8.1 #) [place] [address]-03-25 06:48:00 Test Item Value Reference Range Interpretation Comments Lymphocytes # (test code = Lymphocytes 2.5 1.0-5.5 #) [place] [address]-03-25 06:48:00 Test Item Value Reference Range Interpretation Comments Monocytes # (test code 0.7 See_Comment [Aut omated message] The = Monocytes #) system which generated this result tra nsmitted reference range : <=0.8. The reference r boubacar was not used to int erpret this result as normal/abnormal . [place] 122332-03-25 06:48:00 Test Item Value Reference Range Interpretation Comments Eosinophils # (test code 0.3 See_Comment [A utomated message] The = Eosinophils #) system [facility] h generated this result tra nsmitted reference range : <=0.5. The reference r boubacar was not used to int erpret this result as normal/abnormal . [facility] TylerBnxavjsCTSHURKVJN6991-15-52 06:48:00 Test Item Value Reference Range Interpretation Comments WBC X 10x3 (test code = WBC X 10x3) 11.9 3.7-10.4 [place] 122332-03-25 06:48:00 Test Item Value Reference Range Interpretation Comments RBC X 10x6 (test code = RBC X 10x6) 5.95 4.70-6.10 [place] 122332-03-25 06:48:00 Test Item Value Reference Range Interpretation Comments Hgb (test code = Hgb) 17.9 14.0-18.0 [place] [address]-03-25 06:48:00 Test Item Value Reference Range Interpretation Comments Hct (test code = Hct) 52.0 42.0-54.0 [place] [address]-03-25 06:48:00 Test Item Value Reference Range Interpretation Comments MCV (test code = MCV) 87.5 80.0-94.0 [place] 122332-03-25 06:48:00 Test Item Value Reference Range Interpretation Comments MCH (test code = MCH) 30.2 pg 27.0-31.0 [place] 122332-03-25 06:48:00 Test Item Value Reference Range Interpretation Comments MCHC (test code = MCHC) 34.5 32.0-36.0 [place] 122332-03-25 06:48:00 Test Item Value Reference Range Interpretation Comments RDW (test code = RDW) 15.4 11.5-14.5 [place] 122332-03-25 06:48:00 Test Item Value Reference Range Interpretation Comments Platelet (test code = Platelet) 414 133-450 [place] 122332-03-25 06:48:00 Test Item Value Reference Range Interpretation Comments MPV (test code = MPV) 8.5 7.4-10.4 [place] 122332-03-25 06:48:00 Test Item Value Reference Range Interpretation Comments PT (test code = PT) 12.9 s 12.0-14.7 [place] 122332-03-25 06:48:00 Test Item Value Reference Range Interpretation Comments INR (test code = INR) 0.98 1 0.85-1.17 [facility] TylerInmnwxwENAUDFWJAQ6191-14-90 06:48:00 Test Item Value Reference Range Interpretation Comments PTT (test code = PTT) 31.4 s 22.9-35.8 [facility] AKTOLBH7291-36-28 06:48:00 Test Item Value Reference Range Interpretation Comments Antibody Scrn (test Negative (10/06/21 1:48 code = Antibody Scrn) AM) [facility] [id number] 06:48:00 Test Item Value Reference Range Interpretation Comments ABO/Rh (test code = ABO/Rh) AB POS [facility] TylerYcwlllvYPCOWCQQYF0096-57-60 06:48:00 Test Item Value Reference Range Interpretation Comments Segs (test code = Segs) 70.8 45.0-75.0 [facility] TylerWyojdxrGQMLNJLISF7518-50-54 06:48:00 Test Item Value Reference Range Interpretation Comments Lymphocytes (test code = Lymphocytes) 20.8 20.0-40.0 [facility] TylerLtyxcmcRVWYEVRSRP4896-72-63 06:48:00 Test Item Value Reference Range Interpretation Comments Monocytes (test code = Monocytes) 5.8 2.0-12.0 [facility] TylerWiqnxlwNGZUEEGDAP7619-48-56 06:48:00 Test Item Value Reference Range Interpretation Comments Eosinophils (test code = 2.3 See_Comment [A utomated message] The Eosinophils) system which ge nerated this result tra nsmitted reference range : <=4.0. The reference r boubacar was not used to int erpret this result as normal/abnormal . [facility] TylerHxngxuhTCYSVBBJIF6926-15-26 06:48:00 Test Item Value Reference Range Interpretation Comments Basophils (test code = 0.3 See_Comment [Aut omated message] The Basophils) system which ge nerated this result tra nsmitted reference range : <=1.0. The reference r boubacar was not used to int erpret this result as normal/abnormal . [facility] TylerOwkegzcMTSZVYDOUN5369-25-74 06:48:00 Test Item Value Reference Range Interpretation Comments Neutrophils # (test code = Neutrophils 8.4 1.5-8.1 #) [facility] TylerBrttgegJOHAHCAJHU2911-83-33 06:48:00 Test Item Value Reference Range Interpretation Comments Lymphocytes # (test code = Lymphocytes 2.5 1.0-5.5 #) [facility] TylerJewibloACUILQGEQG6710-48-96 06:48:00 Test Item Value Reference Range Interpretation Comments Monocytes # (test code 0.7 See_Comment [Aut omated message] The = Monocytes #) system which generated this result tra nsmitted reference range : <=0.8. The reference r boubacar was not used to int erpret this result as normal/abnormal . [facility] TylerHmquktvYAAKVVHACI2505-02-36 06:48:00 Test Item Value Reference Range Interpretation Comments Eosinophils # (test code 0.3 See_Comment [A utomated message] The = Eosinophils #) system whic h generated this result tra nsmitted reference range : <=0.5. The reference r boubacar was not used to int erpret this result as normal/abnormal . [facility] TylerYnlhxqtIYFKCVDAHK5760-37-22 06:48:00 Test Item Value Reference Range Interpretation Comments WBC X 10x3 (test code = WBC X 10x3) 11.9 3.7-10.4 [place] 122332-03-25 06:48:00 Test Item Value Reference Range Interpretation Comments RBC X 10x6 (test code = RBC X 10x6) 5.95 4.70-6.10 [place] 122332-03-25 06:48:00 Test Item Value Reference Range Interpretation Comments Hgb (test code = Hgb) 17.9 14.0-18.0 [place] 122332-03-25 06:48:00 Test Item Value Reference Range Interpretation Comments Hct (test code = Hct) 52.0 42.0-54.0 [place] 122332-03-25 06:48:00 Test Item Value Reference Range Interpretation Comments MCV (test code = MCV) 87.5 80.0-94.0 [place] [address]-03-25 06:48:00 Test Item Value Reference Range Interpretation Comments MCH (test code = MCH) 30.2 pg 27.0-31.0 [facility] TylerBmzqmsoWGMSGBJASX8353-33-30 06:48:00 Test Item Value Reference Range Interpretation Comments MCHC (test code = MCHC) 34.5 32.0-36.0 [place] 122332-03-25 06:48:00 Test Item Value Reference Range Interpretation Comments RDW (test code = RDW) 15.4 11.5-14.5 [facility] CampusKgtmbtcABJCUZPUYQ8222-62-82 06:48:00 Test Item Value Reference Range Interpretation Comments Platelet (test code = Platelet) 414 133-450 [facility] TylerZqzsilhCZYEBFBLYZ8590-85-13 06:48:00 Test Item Value Reference Range Interpretation Comments MPV (test code = MPV) 8.5 7.4-10.4 [facility] TylerQcazrbwQKKAEQYTEO6513-11-79 06:48:00 Test Item Value Reference Range Interpretation Comments PT (test code = PT) 12.9 s 12.0-14.7 [facility]KwmlxobNHVOXKEQMH0763-64-98 06:48:00 Test Item Value Reference Range Interpretation Comments INR (test code = INR) 0.98 1 0.85-1.17 [facility] CampusQbrnpblIUJSKDLQWD8060-59-90 06:48:00 Test Item Value Reference Range Interpretation Comments PTT (test code = PTT) 31.4 s 22.9-35.8 [facility] SMNTXJK9972-61-45 06:48:00 Test Item Value Reference Range Interpretation Comments Antibody Scrn (test Negative (10/06/21 1:48 code = Antibody Scrn) AM) [facility] [place] AHOZIRG8611-61-73 06:48:00 Test Item Value Reference Range Interpretation Comments ABO/Rh (test code = ABO/Rh) AB POS [facility] CampusKeiljlcHIKZGNHVSO0352-98-32 06:48:00 Test Item Value Reference Range Interpretation Comments Segs (test code = Segs) 70.8 45.0-75.0 [facility] CampusTepqqgcVJXKYPISAF3000-74-10 06:48:00 Test Item Value Reference Range Interpretation Comments Lymphocytes (test code = Lymphocytes) 20.8 20.0-40.0 [facility] HospitalAwttkuiRITYEUEDTC0871-98-06 06:48:00 Test Item Value Reference Range Interpretation Comments Monocytes (test code = Monocytes) 5.8 2.0-12.0 [facility] HospitalXpiqdhcCJIRSOBLCT5706-17-23 06:48:00 Test Item Value Reference Range Interpretation Comments Eosinophils (test code = 2.3 See_Comment [A utomated message] The Eosinophils) system which ge nerated this result tra nsmitted reference range : <=4.0. The reference r boubacar was not used to int erpret this result as normal/abnormal . [place] 122332-03-25 06:48:00 Test Item Value Reference Range Interpretation Comments Basophils (test code = 0.3 See_Comment [Aut omated message] The Basophils) system which ge nerated this result tra nsmitted reference range : <=1.0. The reference r boubacar was not used to int erpret this result as normal/abnormal . [place] 122332-03-25 06:48:00 Test Item Value Reference Range Interpretation Comments Neutrophils # (test code = Neutrophils 8.4 1.5-8.1 #) [place] 122332-03-25 06:48:00 Test Item Value Reference Range Interpretation Comments Lymphocytes # (test code = Lymphocytes 2.5 1.0-5.5 #) [place] 122332-03-25 06:48:00 Test Item Value Reference Range Interpretation Comments Monocytes # (test code 0.7 See_Comment [Aut omated message] The = Monocytes #) system which generated this result tra nsmitted reference range : <=0.8. The reference r boubacar was not used to int erpret this result as normal/abnormal . [facility] TylerCbbutiiBOFJDVGCZG3764-09-82 06:48:00 Test Item Value Reference Range Interpretation Comments Eosinophils # (test code 0.3 See_Comment [A utomated message] The = Eosinophils #) system whic h generated this result tra nsmitted reference range : <=0.5. The reference r boubacar was not used to int erpret this result as normal/abnormal . [facility] TylerUwffnnfWKVIIUUQXH3027-88-34 06:48:00 Test Item Value Reference Range Interpretation Comments WBC X 10x3 (test code = WBC X 10x3) 11.9 3.7-10.4 [place] 122332-03-25 06:48:00 Test Item Value Reference Range Interpretation Comments RBC X 10x6 (test code = RBC X 10x6) 5.95 4.70-6.10 [place] 122332-03-25 06:48:00 Test Item Value Reference Range Interpretation Comments Hgb (test code = Hgb) 17.9 14.0-18.0 [place] 122332-03-25 06:48:00 Test Item Value Reference Range Interpretation Comments Hct (test code = Hct) 52.0 42.0-54.0 [facility] HospitalQkbfkgmKLZQMNCLJC6077-28-87 06:48:00 Test Item Value Reference Range Interpretation Comments MCV (test code = MCV) 87.5 80.0-94.0 [facility] HospitalQismflbIMUMBGEHZE9152-45-17 06:48:00 Test Item Value Reference Range Interpretation Comments MCH (test code = MCH) 30.2 pg 27.0-31.0 [facility] VxedoorATVZTEBOWO3122-11-21 06:48:00 Test Item Value Reference Range Interpretation Comments MCHC (test code = MCHC) 34.5 32.0-36.0 [facility] HospitalDihqfqtSXOFDMEOFA4155-67-36 06:48:00 Test Item Value Reference Range Interpretation Comments RDW (test code = RDW) 15.4 11.5-14.5 [facility] OezsuxdKRTCZNTCQG3171-93-77 06:48:00 Test Item Value Reference Range Interpretation Comments Platelet (test code = Platelet) 414 133-450 [facility] HospitalPjpmwylZBZHPRLXXN1485-39-43 06:48:00 Test Item Value Reference Range Interpretation Comments MPV (test code = MPV) 8.5 7.4-10.4 [facility] HospitalFievgsyLJIEJUCSNK8665-68-36 06:48:00 Test Item Value Reference Range Interpretation Comments PT (test code = PT) 12.9 s 12.0-14.7 [facility] HospitalWuduvklMFQLUTZGYI6895-94-80 06:48:00 Test Item Value Reference Range Interpretation Comments INR (test code = INR) 0.98 1 0.85-1.17 [facility] HospitalSripxocBEWYHFPSQB5159-34-58 06:48:00 Test Item Value Reference Range Interpretation Comments PTT (test code = PTT) 31.4 s 22.9-35.8 [facility] UJTFMAS5059-59-87 06:48:00 Test Item Value Reference Range Interpretation Comments Antibody Scrn (test Negative (10/06/21 1:48 code = Antibody Scrn) AM) [employer] TOTLATB5872-98-97 06:48:00 Test Item Value Reference Range Interpretation Comments ABO/Rh (test code = ABO/Rh) AB POS [facility] HospitalDyccjdzHKLQPCQEQX3225-42-83 06:48:00 Test Item Value Reference Range Interpretation Comments Segs (test code = Segs) 70.8 45.0-75.0 [place] 122332-03-25 06:48:00 Test Item Value Reference Range Interpretation Comments Lymphocytes (test code = Lymphocytes) 20.8 20.0-40.0 [place] 122332-03-25 06:48:00 Test Item Value Reference Range Interpretation Comments Monocytes (test code = Monocytes) 5.8 2.0-12.0 [place] 122332-03-25 06:48:00 Test Item Value Reference Range Interpretation Comments Eosinophils (test code = 2.3 See_Comment [A utomated message] The Eosinophils) system which ge nerated this result tra nsmitted reference range : <=4.0. The reference r boubacar was not used to int erpret this result as normal/abnormal . [place] 122332-03-25 06:48:00 Test Item Value Reference Range Interpretation Comments Basophils (test code = 0.3 See_Comment [Aut omated message] The Basophils) system which ge nerated this result tra nsmitted reference range : <=1.0. The reference r boubacar was not used to int erpret this result as normal/abnormal . [facility] TylerPfungoqRXVTRZVLMC5468-82-03 06:48:00 Test Item Value Reference Range Interpretation Comments Neutrophils # (test code = Neutrophils 8.4 1.5-8.1 #) [place] 122332-03-25 06:48:00 Test Item Value Reference Range Interpretation Comments Lymphocytes # (test code = Lymphocytes 2.5 1.0-5.5 #) [place] 122332-03-25 06:48:00 Test Item Value Reference Range Interpretation Comments Monocytes # (test code 0.7 See_Comment [Aut omated message] The = Monocytes #) system which generated this result tra nsmitted reference range : <=0.8. The reference r boubacar was not used to int erpret this result as normal/abnormal . [place] [address]-03-25 06:48:00 Test Item Value Reference Range Interpretation Comments Eosinophils # (test code 0.3 See_Comment [A utomated message] The = Eosinophils #) system whic h generated this result tra nsmitted reference range : <=0.5. The reference r boubacar was not used to int erpret this result as normal/abnormal . [place] 122332-03-25 06:48:00 Test Item Value Reference Range Interpretation Comments WBC X 10x3 (test code = WBC X 10x3) 11.9 3.7-10.4 [place] 122332-03-25 06:48:00 Test Item Value Reference Range Interpretation Comments RBC X 10x6 (test code = RBC X 10x6) 5.95 4.70-6.10 [place] 122332-03-25 06:48:00 Test Item Value Reference Range Interpretation Comments Hgb (test code = Hgb) 17.9 14.0-18.0 [place] [address]-03-25 06:48:00 Test Item Value Reference Range Interpretation Comments Hct (test code = Hct) 52.0 42.0-54.0 [place] 122332-03-25 06:48:00 Test Item Value Reference Range Interpretation Comments MCV (test code = MCV) 87.5 80.0-94.0 [place] [address]-03-25 06:48:00 Test Item Value Reference Range Interpretation Comments MCH (test code = MCH) 30.2 pg 27.0-31.0 [place] 122332-03-25 06:48:00 Test Item Value Reference Range Interpretation Comments MCHC (test code = MCHC) 34.5 32.0-36.0 [place] 122332-03-25 06:48:00 Test Item Value Reference Range Interpretation Comments RDW (test code = RDW) 15.4 11.5-14.5 [place] 122332-03-25 06:48:00 Test Item Value Reference Range Interpretation Comments Platelet (test code = Platelet) 414 133-450 [facility] TylerEodyugaUMPHSGMVKV4715-22-54 06:48:00 Test Item Value Reference Range Interpretation Comments MPV (test code = MPV) 8.5 7.4-10.4 [place] [address]-03-25 06:48:00 Test Item Value Reference Range Interpretation Comments PT (test code = PT) 12.9 s 12.0-14.7 [place] 122332-03-25 06:48:00 Test Item Value Reference Range Interpretation Comments INR (test code = INR) 0.98 1 0.85-1.17 [place] 122332-03-25 06:48:00 Test Item Value Reference Range Interpretation Comments PTT (test code = PTT) 31.4 s 22.9-35.8 [facility] WITH [id number] 00:23:28 Test Item Value Reference Range Interpretation [...] RDW-SD (test code = 47.6 fL 38.5-51.6 21828-1) RDW-CV (test code = 15.1 % 12.1-15.4 788-0) PLT (test code = See_Comment H [Automated 777-3) message] The sy stem which generated this result transmitted reference range : 150 - 328 10*3/ ?L. The reference r boubacar was not used to interpret this result as normal/abnormal . MPV (test code = 10.5 fL 9.8-13.0 42148-7) NRBC/100 WBC (test See_Comment [Automat ed code = [id number]) message] The system which generated this result transmitted reference range : 0.0 - 10.0 /100 WBCs. The refer ence range was not u sed to interpret th is result as normal/abnormal . NRBC x10^3 (test code <0.01 See_Comment [Auto mated = [id number]) message] The s ystem which generated this result transmitted reference range : 10*3/?L. The reference range was not used to interpret this result as normal/abnormal . GRAN MAT (NEUT) % 66.7 % (test code = 770-8) IMM GRAN % (test code 0.40 % = 9787173070) LYMPH % (test code = 24.4 % 736-9) MONO % (test code = 6.6 % 5905-5) EOS % (test code = 1.5 % 713-8) BASO % (test code = 0.4 % 706-2) GRAN MAT x10^3(ANC) 7.43 10*3/uL 1.99-6.95 H (test code = 1625366709) IMM GRAN x10^3 (test 0.04 10*3/uL 0.00-0.06 code = 2241061240) LYMPH x10^3 (test code 2.72 10*3/uL 1.09-3.23 = 731-0) MONO x10^3 (test code 0.74 10*3/uL 0.36-1.02 = 742-7) EOS x10^3 (test code = 0.17 10*3/uL 0.06-0.53 711-2) BASO x10^3 (test code 0.04 10*3/uL 0.01-0.09 = 704-7) Lab Interpretation Abnormal (test code = 67941-8) [facility]. METABOLIC PANEL ([id number])2021-09-29 00:18:07 Test Item Value Reference Range Interpretation Comments NA (test code = 139 mmol/L 135-145 4693909755) K (test code = 4.8 mmol/L 3.5-5.0 9282332716) CL (test code = 104 mmol/L 98-108 2388066737) CO2 TOTAL (test code = 22 mmol/L 23-31 L 4411351337) AGAP (test code = 2-16 1908353206) BUN (test code = 15 mg/dL 7-23 4216754070) GLUCOSE (test code = 93 mg/dL 70-110 6868868322) CREATININE (test code = 0.67 mg/dL 0.60-1.25 4253274884) TOTAL BILI (test code = 0.7 mg/dL 0.1-1.4 3159601614) CALCIUM (test code = 9.8 mg/dL 8.6-10.6 5414995610) T PROTEIN (test code = 8.9 g/dL 6.3-8.2 H 2508310711) ALBUMIN (test code = 4.9 g/dL 3.5-5.0 5997161357) ALK PHOS (test code = 126 U/L 34-122 H 2611483760) ALTv (test code = 43 U/L 5-50 1742-6) AST(SGOT) (test code = 28 U/L 13-40 1054087256) eGFR (test code = mL/min/1.73m2 8452221721) ARPITA (test code = ARPITA) Association of [...] tests). Lab Interpretation Abnormal (test code = 08953-1) [facility]. METABOLIC PANEL ([id number])2021-08-06 12:48:40 Test Item Value Reference Range Interpretation Comments NA (test code = 137 mmol/L 135-145 1782662980) K (test code = 4.5 mmol/L 3.5-5.0 6380959189) CL (test code = 107 mmol/L 98-108 5293386188) CO2 TOTAL (test code = 24 mmol/L 23-31 6421218682) AGAP (test code = 2-16 3101906710) BUN (test code = 16 mg/dL 7-23 6030662537) GLUCOSE (test code = 116 mg/dL 70-110 H 3547106334) CREATININE (test code = 0.62 mg/dL 0.60-1.25 0216097069) TOTAL BILI (test code = 0.4 mg/dL 0.1-1.4 6966156882) CALCIUM (test code = 8.7 mg/dL 8.6-10.6 7380546488) T PROTEIN (test code = 7.5 g/dL 6.3-8.2 4598034002) ALBUMIN (test code = 3.9 g/dL 3.5-5.0 3432397263) ALK PHOS (test code = 93 U/L 34-122 5751540953) ALTv (test code = 40 U/L 5-50 1742-6) AST(SGOT) (test code = 51 U/L 13-40 H 7368327422) eGFR (test code = mL/min/1.73m2 0533359180) ARPITA (test code = ARPITA) Association of [...] tests). Lab Interpretation Abnormal (test code = 13556-4) [facility] WITH [id number] 12:21:36 Test Item Value Reference Range Interpretation Comments WBC (test code = See_Comment [Automated 0890-2) message] The sy stem which generated this result transmitted reference range : 4.20 - 10.70 10*3/?L. The reference range was not used to interpret this result as normal/abnormal . RBC (test code = See_Comment [Automated 179-8) message] The sy stem which generated this [...] RDW-SD (test code = 50.6 fL 38.5-51.6 18495-5) RDW-CV (test code = 15.3 % 12.1-15.4 788-0) PLT (test code = See_Comment H [Automated 837-3) message] The sy stem which generated this result transmitted reference range : 150 - 328 10*3/ ?L. The reference r boubacar was not used to interpret this result as normal/abnormal . MPV (test code = 10.3 fL 9.8-13.0 15928-0) NRBC/100 WBC (test See_Comment [Automat ed code = 3176864511) message] The system which generated this result transmitted reference range : 0.0 - 10.0 /100 WBCs. The refer ence range was not u sed to interpret th is result as normal/abnormal . NRBC x10^3 (test code <0.01 See_Comment [Auto mated = 2250573121) message] The s ystem which generated this result transmitted reference range : 10*3/?L. The reference range was not used to interpret this result as normal/abnormal . GRAN MAT (NEUT) % 61.5 % (test code = 770-8) IMM GRAN % (test code 0.80 % = 7569778879) LYMPH % (test code = 27.8 % 736-9) MONO % (test code = 6.9 % 5905-5) EOS % (test code = 2.4 % 713-8) BASO % (test code = 0.6 % 706-2) GRAN MAT x10^3(ANC) 6.07 10*3/uL 1.99-6.95 (test code = 8761833971) IMM GRAN x10^3 (test 0.08 10*3/uL 0.00-0.06 H code = 6522032569) LYMPH x10^3 (test code 2.75 10*3/uL 1.09-3.23 = 731-0) MONO x10^3 (test code 0.68 10*3/uL 0.36-1.02 = 742-7) EOS x10^3 (test code = 0.24 10*3/uL 0.06-0.53 711-2) BASO x10^3 (test code 0.06 10*3/uL 0.01-0.09 = 704-7) Lab Interpretation Abnormal (test code = 44302-1) [facility] Metabolic Panel (NA, K, CL, CO2, GLUCOSE, BUN, CREATININE, CA)2021-08-04 12:40:30 Test Item Value Reference Range Interpretation Comments NA (test code = 139 mmol/L 135-145 2963066985) K (test code = 3.9 mmol/L 3.5-5.0 1178974237) CL (test code = 108 mmol/L 98-108 7844822992) CO2 TOTAL (test code = 25 mmol/L 23-31 7940064003) AGAP (test code = 2-16 3755486726) BUN (test code = 14 mg/dL 7-23 8880209139) GLUCOSE (test code = 107 mg/dL 70-110 2268504495) CREATININE (test code = 0.61 mg/dL 0.60-1.25 0746864399) CALCIUM (test code = 8.1 mg/dL 8.6-10.6 L 5953973979) eGFR (test code = mL/min/1.73m2 6947823070) ARPITA (test code = ARPITA) Association of [...] tests). Lab Interpretation Abnormal (test code = 84811-6) [facility] with [id number] 12:23:51 Test Item Value Reference Range Interpretation [...] RDW-SD (test code = 49.3 fL 38.5-51.6 37632-4) RDW-CV (test code = 15.3 % 12.1-15.4 788-0) PLT (test code = See_Comment H [Automated 777-3) message] The sy stem which generated this result transmitted reference range : 150 - 328 10*3/ ?L. The reference r boubacar was not used to interpret this result as normal/abnormal . MPV (test code = 10.2 fL 9.8-13.0 58389-9) NRBC/100 WBC (test See_Comment [Automat ed code = 5843067583) message] The system which generated this result transmitted reference range : 0.0 - 10.0 /100 WBCs. The refer ence range was not u sed to interpret th is result as normal/abnormal . NRBC x10^3 (test code <0.01 See_Comment [Auto mated = 5656590641) message] The s ystem which generated this result transmitted reference range : 10*3/?L. The reference range was not used to interpret this result as normal/abnormal . GRAN MAT (NEUT) % 56.7 % (test code = 770-8) IMM GRAN % (test code 0.60 % = 7449494207) LYMPH % (test code = 31.1 % 736-9) MONO % (test code = 8.7 % 5905-5) EOS % (test code = 2.4 % 713-8) BASO % (test code = 0.5 % 706-2) GRAN MAT x10^3(ANC) 4.83 10*3/uL 1.99-6.95 (test code = 3042616625) IMM GRAN x10^3 (test 0.05 10*3/uL 0.00-0.06 code = 7022412907) LYMPH x10^3 (test code 2.64 10*3/uL 1.09-3.23 = 731-0) MONO x10^3 (test code 0.74 10*3/uL 0.36-1.02 = 742-7) EOS x10^3 (test code = 0.20 10*3/uL 0.06-0.53 711-2) BASO x10^3 (test code 0.04 10*3/uL 0.01-0.09 = 704-7) Lab Interpretation Abnormal (test code = 11409-7) [id number] 06:32:14 Test Item Value Reference Range Interpretation Comments NA (test code = 139 mmol/L 135-145 7354783415) K (test code = 4.5 mmol/L 3.5-5.0 1551472160) CL (test code = 102 mmol/L 98-108 4870808820) CO2 TOTAL (test code = 26 mmol/L 23-31 5443262131) AGAP (test code = 2-16 0861115275) BUN (test code = 16 mg/dL 7-23 2001675629) GLUCOSE (test code = 99 mg/dL 70-110 5819215991) CREATININE (test code = 0.83 mg/dL 0.60-1.25 9378578429) TOTAL BILI (test code = 0.6 mg/dL 0.1-1.2 2664131053) CALCIUM (test code = 9.5 mg/dL 8.6-10.6 2052607530) T PROTEIN (test code = 8.6 g/dL 6.3-8.2 H 8910700659) ALBUMIN (test code = 4.6 g/dL 3.5-5.0 2427925939) ALK PHOS (test code = 121 U/L 34-122 2402594988) ALTv (test code = 58 U/L 5-50 H 2-6) AST(SGOT) (test code = 32 U/L 13-40 7039130941) eGFR (test code = mL/min/1.73m2 9676440960) ARPITA (test code = ARPITA) Association of [...] tests). Lab Interpretation Abnormal (test code = 44499-7) [facility] WITH [id number] 05:48:31 Test Item Value Reference Range Interpretation [...] RDW-SD (test code = 49.1 fL 38.5-51.6 66267-3) RDW-CV (test code = 15.5 % 12.1-15.4 H 788-0) PLT (test code = See_Comment H [Automated 777-3) message] The sy stem which generated this result transmitted reference range : 150 - 328 10*3/ ?L. The reference r boubacar was not used to interpret this result as normal/abnormal . MPV (test code = 10.4 fL 9.8-13.0 79743-4) NRBC/100 WBC (test See_Comment [Automat ed code = 5787666411) message] The system which generated this result transmitted reference range : 0.0 - 10.0 /100 WBCs. The refer ence range was not u sed to interpret th is result as normal/abnormal . NRBC x10^3 (test code <0.01 See_Comment [Auto mated = 7842373160) message] The s ystem which generated this result transmitted reference range : 10*3/?L. The reference range was not used to interpret this result as normal/abnormal . GRAN MAT (NEUT) % 64.8 % (test code = 770-8) IMM GRAN % (test code 0.70 % = 0505032324) LYMPH % (test code = 25.2 % 736-9) MONO % (test code = 6.9 % 5905-5) EOS % (test code = 1.9 % 713-8) BASO % (test code = 0.5 % 706-2) GRAN MAT x10^3(ANC) 7.80 10*3/uL 1.99-6.95 H (test code = 5617557304) IMM GRAN x10^3 (test 0.08 10*3/uL 0.00-0.06 H code = 5975323261) LYMPH x10^3 (test code 3.04 10*3/uL 1.09-3.23 = 731-0) MONO x10^3 (test code 0.83 10*3/uL 0.36-1.02 = 742-7) EOS x10^3 (test code = 0.23 10*3/uL 0.06-0.53 711-2) BASO x10^3 (test code 0.06 10*3/uL 0.01-0.09 = 704-7) Lab Interpretation Abnormal (test code = 13482-1) [facility]. METABOLIC PANEL ([id number])2021-08-01 02:19:08 Test Item Value Reference Range Interpretation Comments NA (test code = 136 mmol/L 135-145 2489395989) K (test code = 4.4 mmol/L 3.5-5.0 9588278935) CL (test code = 99 mmol/L 98-108 1484647209) CO2 TOTAL (test code = 25 mmol/L 23-31 6852248905) AGAP (test code = 2-16 6905378337) BUN (test code = 19 mg/dL 7-23 9189984213) GLUCOSE (test code = 103 mg/dL 70-110 4972621329) CREATININE (test code = 0.70 mg/dL 0.60-1.25 3128823665) TOTAL BILI (test code = 0.7 mg/dL 0.1-1.2 9378147351) CALCIUM (test code = 9.2 mg/dL 8.6-10.6 7745767933) T PROTEIN (test code = 9.4 g/dL 6.3-8.2 H 3520911167) ALBUMIN (test code = 4.8 g/dL 3.5-5.0 8638479904) ALK PHOS (test code = 146 U/L 34-122 H 0655562715) ALTv (test code = 75 U/L 5-50 H 1742-6) AST(SGOT) (test code = 37 U/L 13-40 0887637636) eGFR (test code = mL/min/1.73m2 9966959728) ARPITA (test code = ARPITA) Association of [...] tests). Lab Interpretation Abnormal (test code = 84161-1) [facility] Test Item Value Reference Range Interpretation Comments LIPASE (test code = 5421191180) 86 U/L 0-220 Lab Interpretation (test code = Normal 32916-0) [facility] WITH [id number] 01:55:49 Test Item Value Reference Range Interpretation [...] RDW-SD (test code = 48.7 fL 38.5-51.6 86978-1) RDW-CV (test code = 15.4 % 12.1-15.4 788-0) PLT (test code = See_Comment H [Automated 777-3) message] The sy stem which generated this result transmitted reference range : 150 - 328 10*3/ ?L. The reference r boubacar was not used to interpret this result as normal/abnormal . MPV (test code = 9.9 fL 9.8-13.0 87734-2) NRBC/100 WBC (test See_Comment [Automat ed code = 6149296369) message] The system which generated this result transmitted reference range : 0.0 - 10.0 /100 WBCs. The refer ence range was not u sed to interpret th is result as normal/abnormal . NRBC x10^3 (test code <0.01 See_Comment [Auto mated = 9631228731) message] The s ystem which generated this result transmitted reference range : 10*3/?L. The reference range was not used to interpret this result as normal/abnormal . GRAN MAT (NEUT) % 69.8 % (test code = 770-8) IMM GRAN % (test code 0.50 % = 3999670947) LYMPH % (test code = 20.5 % 736-9) MONO % (test code = 6.8 % 5905-5) EOS % (test code = 1.9 % 713-8) BASO % (test code = 0.5 % 706-2) GRAN MAT x10^3(ANC) 7.72 10*3/uL 1.99-6.95 H (test code = 3269856354) IMM GRAN x10^3 (test 0.05 10*3/uL 0.00-0.06 code = 8633199954) LYMPH x10^3 (test code 2.26 10*3/uL 1.09-3.23 = 731-0) MONO x10^3 (test code 0.75 10*3/uL 0.36-1.02 = 742-7) EOS x10^3 (test code = 0.21 10*3/uL 0.06-0.53 711-2) BASO x10^3 (test code 0.06 10*3/uL 0.01-0.09 = 704-7) Lab Interpretation Abnormal (test code = 39552-5) [facility]52 Test Item Value Reference Interpretation Comments Range D-DIMER (test code = See_Comment [Autom ated 2204929603) message] The system which generated this result [...] diagnosis. Lab Interpretation Normal (test code = 04824-5) [facility]. METABOLIC PANEL ([id number])2021-07-29 22:42:48 Test Item Value Reference Range Interpretation Comments NA (test code = 135 mmol/L 135-145 3703236214) K (test code = 4.6 mmol/L 3.5-5.0 9015111002) CL (test code = 102 mmol/L 98-108 8673271773) CO2 TOTAL (test code = 24 mmol/L 23-31 7388653110) AGAP (test code = 2-16 4969064622) BUN (test code = 17 mg/dL 7-23 2107409896) GLUCOSE (test code = 107 mg/dL 70-110 1142214151) CREATININE (test code = 0.60 mg/dL 0.60-1.25 0782736054) TOTAL BILI (test code = 1.0 mg/dL 0.1-1.7 4353802334) CALCIUM (test code = 9.4 mg/dL 8.6-10.6 7720650561) T PROTEIN (test code = 8.6 g/dL 6.3-8.2 H 9614320306) ALBUMIN (test code = 4.6 g/dL 3.5-5.0 1948439641) ALK PHOS (test code = 159 U/L 34-122 H 0696833609) ALTv (test code = 77 U/L 5-50 H 1742-6) AST(SGOT) (test code = 38 U/L 13-40 3493079783) eGFR (test code = mL/min/1.73m2 0511950552) ARPITA (test code = ARPITA) Association of [...] tests). Lab Interpretation Abnormal (test code = 79062-9) [facility] WITH [id number] 22:30:27 Test Item Value Reference Range Interpretation Comments WBC (test code = See_Comment H [Automated 6690-2) message] The system which generated this result transmit lester reference range : 4.20 - 10.70 10*3/?L. The reference range was not used to interpret this result as normal/abnormal . RBC (test code = See_Comment H [Automated 299-8) message] The system which generated this result [...] RDW-SD (test code = 48.0 fL 38.5-51.6 13088-5) RDW-CV (test code = 15.1 % 12.1-15.4 788-0) PLT (test code = See_Comment H [Automated 777-3) message] The system which generated this result transmit lester reference range : 150 - 328 10*3/ ?L. The reference range was not u sed to interpret th is result as normal/abnormal . MPV (test code = 10.3 fL 9.8-13.0 11454-7) NRBC/100 WBC (test See_Comment [Automat ed code = 5688561694) message] The system which generated this result transmit lester reference range : 0.0 - 10.0 /100 WBCs. The reference range was not used to interpret this result as normal/abnormal . NRBC x10^3 (test code <0.01 See_Comment [Auto mated = 6539446779) message] The system which generated this result transmit lester reference range : 10*3/?L. The reference range was not used to interpret this result as normal/abnormal . GRAN MAT (NEUT) % 79.9 % (test code = 770-8) IMM GRAN % (test code 0.50 % = 4691722775) LYMPH % (test code = 11.8 % 736-9) MONO % (test code = 6.6 % 5905-5) EOS % (test code = 0.9 % 713-8) BASO % (test code = 0.3 % 706-2) GRAN MAT x10^3(ANC) 10.70 10*3/uL 1.99-6.95 H (test code = 2204383165) IMM GRAN x10^3 (test 0.07 10*3/uL 0.00-0.06 H code = 5402248337) LYMPH x10^3 (test code 1.58 10*3/uL 1.09-3.23 = 731-0) MONO x10^3 (test code 0.89 10*3/uL 0.36-1.02 = 742-7) EOS x10^3 (test code = 0.12 10*3/uL 0.06-0.53 711-2) BASO x10^3 (test code 0.04 10*3/uL 0.01-0.09 = 704-7) Lab Interpretation Abnormal (test code = 82704-4) [facility] ([id number])2021-06-07 23:02:15 Test Item Value Reference Range Interpretation Comments NA (test code = 137 mmol/L 135-145 8551293844) K (test code = 4.5 mmol/L 3.5-5.0 2004814420) CL (test code = 109 mmol/L 98-108 H 9039215270) CO2 TOTAL (test code = 22 mmol/L 23-31 L 9879712662) AGAP (test code = 2-16 1607188839) BUN (test code = 7 mg/dL 7-23 8115325636) GLUCOSE (test code = 87 mg/dL 70-110 8613685431) CREATININE (test code = 0.61 mg/dL 0.60-1.25 4296973523) TOTAL BILI (test code = 0.5 mg/dL 0.1-1.0 1566164006) CALCIUM (test code = 9.0 mg/dL 8.6-10.6 7354837902) T PROTEIN (test code = 6.9 g/dL 6.3-8.2 5471669062) ALBUMIN (test code = 3.5 g/dL 3.5-5.0 5917584439) ALK PHOS (test code = 112 U/L 34-122 3615878793) ALTv (test code = 35 U/L 5-50 1742-6) AST(SGOT) (test code = 21 U/L 13-40 2486541218) eGFR (test code = mL/min/1.73m2 7782513610) ARPITA (test code = ARPITA) Association of [...] tests). Lab Interpretation Abnormal (test code = 93097-9) [facility] WITH [id number] 22:51:57 Test Item Value Reference Range Interpretation Comments WBC (test code = See_Comment H [Automated 5990-2) message] The sy stem which generated this result transmitted reference range : 4.20 - 10.70 10*3/?L. The reference range was not used to interpret this result as normal/abnormal . RBC (test code = See_Comment [Automated 399-8) message] The sy stem which generated this [...] RDW-SD (test code = 42.4 fL 38.5-51.6 67551-6) RDW-CV (test code = 13.6 % 12.1-15.4 788-0) PLT (test code = See_Comment H [Automated 777-3) message] The sy stem which generated this result transmitted reference range : 150 - 328 10*3/ ?L. The reference r boubacar was not used to interpret this result as normal/abnormal . MPV (test code = 9.4 fL 9.8-13.0 L 20220-9) NRBC/100 WBC (test See_Comment [Automat ed code = 4927121443) message] The system which generated this result transmitted reference range : 0.0 - 10.0 /100 WBCs. The refer ence range was not u sed to interpret th is result as normal/abnormal . NRBC x10^3 (test code <0.01 See_Comment [Auto mated = 3464232372) message] The s ystem which generated this result transmitted reference range : 10*3/?L. The reference range was not used to interpret this result as normal/abnormal . GRAN MAT (NEUT) % 76.4 % (test code = 770-8) IMM GRAN % (test code 0.40 % = 6428759974) LYMPH % (test code = 16.3 % 736-9) MONO % (test code = 5.6 % 5905-5) EOS % (test code = 1.0 % 713-8) BASO % (test code = 0.3 % 706-2) GRAN MAT x10^3(ANC) 8.81 10*3/uL 1.99-6.95 H (test code = 4044702378) IMM GRAN x10^3 (test 0.05 10*3/uL 0.00-0.06 code = 0054888758) LYMPH x10^3 (test code 1.88 10*3/uL 1.09-3.23 = 731-0) MONO x10^3 (test code 0.64 10*3/uL 0.36-1.02 = 742-7) EOS x10^3 (test code = 0.12 10*3/uL 0.06-0.53 711-2) BASO x10^3 (test code 0.03 10*3/uL 0.01-0.09 = 704-7) Lab Interpretation Abnormal (test code = 60192-8) [facility]ID [facility]2020-11-21 01:01:33 Test Item Value Reference Range Interpretation Comments SARS-CoV-2 Rapid ID NOW Not Detected Not Detected (test code = 24926-1) ARPITA (test code = ARPITA) ID NOW COVID-19 Assay is an isothermal nucleic acid amplification test intended for the qualitative detection of nucleic acid from SARS-CoV-2 viral RNA in nasopharyngeal ([employer]) specimens. It is used under Emergency Use [...] indicated. Lab Interpretation Normal (test code = 04033-4) [facility]. METABOLIC PANEL ([id number])2020-11-21 01:00:33 Test Item Value Reference Range Interpretation Comments NA (test code = 140 mmol/L 135-145 4099026748) K (test code = 4.4 mmol/L 3.5-5.0 0358633345) CL (test code = 103 mmol/L 98-108 9800717107) CO2 TOTAL (test code = 28 mmol/L 23-31 0340510502) AGAP (test code = 2-16 6760709732) BUN (test code = 15 mg/dL 7-23 8429363853) GLUCOSE (test code = 85 mg/dL 70-110 2968520026) CREATININE (test code = 0.60 mg/dL 0.60-1.25 6058778743) TOTAL BILI (test code = 1.1 mg/dL 0.1-1.4 4244097111) CALCIUM (test code = 9.0 mg/dL 8.6-10.6 7327974663) T PROTEIN (test code = 7.8 g/dL 6.3-8.2 6598938149) ALBUMIN (test code = 4.0 g/dL 3.5-5.0 8877050507) ALK PHOS (test code = 166 U/L 34-122 H 3024229516) ALTv (test code = 42 U/L 5-50 1742-6) AST(SGOT) (test code = 32 U/L 13-40 0865672966) eGFR (test code = mL/min/1.73m2 6604444353) ARPITA (test code = ARPITA) Association of [...] tests). Lab Interpretation Abnormal (test code = 60874-9) [facility]13 Test Item Value Reference Range Interpretation Comments LIPASE (test code = 4322335067) 57 U/L 0-220 Lab Interpretation (test code = Normal 83709-5) [facility] 00:51:55 Test Item Value Reference Range Interpretation Comments APPEARANCE (test code = Turbid Clear A 4622371658) COLOR (test code = Yellow Yellow 3320153412) PH (test code = 4.8-8.0 0752440332) SP GRAVITY (test code = 1.003-1.030 1843310033) GLU U QUAL (test code = Normal Normal 3086416766) BLOOD (test code = 1+ Negative A 1217087851) KETONES (test code = 20 mg/dL Negative A 0813790695) PROTEIN (test code = 100 mg/dL Negative A 2887-8) UROBILIN (test code = 2.0 mg/dL Normal A 3430691187) BILIRUBIN (test code = Negative Negative 5437740955) NITRITE (test code = Positive Negative A 2645308526) LEUK CHAD (test code = 250/uL Negative A 0049480221) RBC/HPF (test code = See_Comment H [Autom ated message] 0258785675) The system tagUin generated this result transmit lester reference range : 0 - 3 HPF. The refe rence range was not u sed to interpret th is result as normal/abnormal . WBC/HPF (test code = >182 See_Comment H [Autom ated message] 1947205194) The system tagUin generated this result transmit lester reference range : 0 - 5 HPF. The refe rence range was not u sed to interpret th is result as normal/abnormal . BACTERIA (test code = Many Negative A 2690117203) MUCOUS (test code = Moderate Negative LPF A 3658563499) WBC CLUMPS (test code = See_Comment H [Au tomated message] 2054549419) The system tagUin generated this result transmit lester reference range : <=1 HPF. The refere nce range was not u sed to interpret th is result as normal/abnormal . Lab Interpretation (test Abnormal code = 04823-4) [facility] WITH [id number] 00:46:14 Test Item Value Reference Range Interpretation Comments WBC (test code = See_Comment [Automated 5590-2) message] The sy stem which generated this [...] RDW-SD (test code = 47.6 fL 38.5-51.6 02649-9) RDW-CV (test code = 15.2 % 12.1-15.4 788-0) PLT (test code = See_Comment H [Automated 777-3) message] The sy stem which generated this result transmitted reference range : 150 - 328 10*3/ ?L. The reference r boubacar was not used to interpret this result as normal/abnormal . MPV (test code = 9.4 fL 9.8-13.0 L 63983-6) NRBC/100 WBC (test See_Comment [Automat ed code = 3013469759) message] The system which generated this result transmitted reference range : 0.0 - 10.0 /100 WBCs. The refer ence range was not u sed to interpret th is result as normal/abnormal . NRBC x10^3 (test code <0.01 See_Comment [Auto mated = 9214257641) message] The s ystem which generated this result transmitted reference range : 10*3/?L. The reference range was not used to interpret this result as normal/abnormal . GRAN MAT (NEUT) % 61.3 % (test code = 770-8) IMM GRAN % (test code 0.70 % = 2613913355) LYMPH % (test code = 26.4 % 736-9) MONO % (test code = 9.9 % 5905-5) EOS % (test code = 1.3 % 713-8) BASO % (test code = 0.4 % 706-2) GRAN MAT x10^3(ANC) 6.39 10*3/uL 1.99-6.95 (test code = 9586798670) IMM GRAN x10^3 (test 0.07 10*3/uL 0.00-0.06 H code = 8120347738) LYMPH x10^3 (test code 2.75 10*3/uL 1.09-3.23 = 731-0) MONO x10^3 (test code 1.03 10*3/uL 0.36-1.02 H = 742-7) EOS x10^3 (test code = 0.14 10*3/uL 0.06-0.53 711-2) BASO x10^3 (test code 0.04 10*3/uL 0.01-0.09 = 704-7) Lab Interpretation Abnormal (test code = 59071-4) [id number] 13:03:00 Test Item Value Reference Range Interpretation Comments POC-GLUCOSE METER 140 mg/dL 70-110 H : TESTED A T [facility] 6720 (BEAKER) (test code = [facility], [facility]) [address]: [employer] Supervisor/Techni rose ID = [id number] for VERO ANDRE, AARON POCT-GLUCOSE [id number] 09:15:00 Test Item Value Reference Range Interpretation Comments POC-GLUCOSE METER 142 mg/dL 70-110 H : TESTED A T [facility] 6720 (BEAKER) (test code = [facility], [facility]) [address]: D[employer] House Supervisor/Techni rose ID = [id number] for VERO ANDRE, AARON POCT-GLUCOSE [id number] 20:56:00 Test Item Value Reference Range Interpretation Comments POC-GLUCOSE METER 134 mg/dL 70-110 H : TESTED A T [facility] 6720 (BEAKER) (test code = [facility], [facility]) [address]: Dye House Supervisor/Techni rose ID = [id number] for MG LANZA POCT-GLUCOSE [id number] 16:46:00 Test Item Value Reference Range Interpretation Comments POC-GLUCOSE METER 91 mg/dL 70-110 : TESTED A T [facility] 6720 (BEAKER) (test code = [facility], [facility]) [address]: Dye House Supervisor/Techni rose ID = [id number] for AKILA DO, AARON POCT-GLUCOSE [id number] 12:19:00 Test Item Value Reference Range Interpretation Comments POC-GLUCOSE METER 237 mg/dL 70-110 H : TESTED Sharon Palacios [facility] 6720 (FELICIANO) (test code = [facility] [place], 1538) [address]: Dye House Supervisor/Techni rose ID = [id number] for AARON COTTRELL MR, EXTREMITY, LOWER, WITHOUT CONTRAST, [id number] 09:12:00FINAL REPORT MRI of the right and [...] Garza Verified Date/Time: 07/29/2019 09:12:01 Reading Location: [facility] B1 [id number] Ortho Consult Reading Room MR, EXTREMITY, LOWER, WITHOUT CONTRAST, [id number] 09:12:00FINAL REPORT MRI of the right and [...] Garza Verified Date/Time: 07/29/2019 09:12:01 Reading Location: [address] Ortho Consult Reading Room POCT-GLUCOSE [id number] 08:47:00 Test Item Value Reference Range Interpretation Comments POC-GLUCOSE METER 264 mg/dL 70-110 H : TESTED Sharon Palacios [facility] 6720 (BEBASHIR) (test code = [facility] COOK, 1538) [address]: Dye House Supervisor/Techni rose ID = [id number] for AARON COTTRELL ISLET CELL AB [id number] 07:43:00 Test Item Value Reference Range Interpretation Comments ISLET CELL AB Refer to individual AUTOVERIFICATION (test Islet Cell Ab code = 2556) and/or Islet Cell Ab Titer results. POCT-GLUCOSE [id number] 21:27:00 Test Item Value Reference Range Interpretation Comments POC-GLUCOSE METER 130 mg/dL 70-110 H : TESTED A T [facility] 6720 ([facility]) (test code = [facility], 1537) 14639: Dye House Supervisor/Techni rose ID = [id number] for FERNIE APARICIO BLOOD [id number] 13:00:00 Test Item Value Reference Range Interpretation Comments CULTURE (BEAKER) (test No growth in 5 days code = 1095) BLOOD [id number] 13:00:00 Test Item Value Reference Range Interpretation Comments CULTURE (BEAKER) (test No growth in 5 days code = 1095) POCT-GLUCOSE [id number] 12:57:00 Test Item Value Reference Range Interpretation Comments POC-GLUCOSE METER 138 mg/dL 70-110 H : TESTED A T [facility] ([facility]) (test code = [facility], 1537) 79595: Dye House Supervisor/Techni rose ID = [id number] for [place] LLIS, JUAN ANTONIO POCT-GLUCOSE [id number] 08:43:00 Test Item Value Reference Range Interpretation Comments POC-GLUCOSE METER 226 mg/dL 70-110 H : TESTED A T [facility] ([facility]) (test code = [facility], 1537) 55653: Dye House Supervisor/Techni rose ID = [id number] for [place] LLIS, JUAN ANTONIO POCT-GLUCOSE [id number] 21:11:00 Test Item Value Reference Range Interpretation Comments POC-GLUCOSE METER 254 mg/dL 70-110 H : Notified RN/MD: ([facility]) (test code = TESTED AT [facility] 67[facility] 1537) [facility], [address]: Dye House Supervisor/Techni rose ID = [id number] for FERNIE APARICIO POCT-GLUCOSE [id number] 21:02:00 Test Item Value Reference Range Interpretation Comments POC-GLUCOSE METER 177 mg/dL 70-110 H : TESTED A T [facility] 6720 ([facility]) (test code = [facility], 1537) 82198: Dye House Supervisor/Techni rose ID = [id number] for [place] LLIS, JUAN ANTONIO POCT-GLUCOSE [id number] 12:31:00 Test Item Value Reference Range Interpretation Comments POC-GLUCOSE METER 215 mg/dL 70-110 H : TESTED A T [facility] 6720 (BEAKER) (test code = [place], 1538) [address]: Dye House Supervisor/Techni rose ID = [id number] for [place] LLIS, JUAN ANTONIO WOUND CULTURE + GRAM [id number] 10:10:00 Test Item Value Reference Interpretation Comments [...] gram negative (BEAKER) (test code = rods 975911) GRAM STAIN RESULT 2+ gram positive (BEAKER) (test code = rods 072383) GRAM STAIN RESULT <1+ gram negative (BEAKER) (test code = coccobacilli 868119) GRAM STAIN RESULT 2+ gram positive (BEAKER) (test code = cocci in pairs 689139) POCT-GLUCOSE [id number] 08:52:00 Test Item Value Reference Range Interpretation Comments POC-GLUCOSE METER 209 mg/dL 70-110 H : TESTED A T [facility] 6720 (BEAKER) (test code = [facility], 153) 90134: Dye House Supervisor/Techni rose ID = [id number] for WI ANGELINA, JUAN ANTONIO POCT-GLUCOSE [id number] 21:26:00 Test Item Value Reference Range Interpretation Comments POC-GLUCOSE METER 255 mg/dL 70-110 H : TESTED A T [facility] 6720 (BEAKER) (test code = [facility], 153) 85383: Dye House Supervisor/Techni rose ID = [id number] for CR MICK, TIA POCT-GLUCOSE [id number] 17:34:00 Test Item Value Reference Range Interpretation Comments POC-GLUCOSE METER 227 mg/dL 70-110 H : TESTED A T [facility] 6720 (BEAKER) (test code = [facility], 153) 42736: Dye House Supervisor/Techni rose ID = [id number] for CHAVEZ NNLizet, LETI POCT-GLUCOSE [id number] 11:28:00 Test Item Value Reference Range Interpretation Comments POC-GLUCOSE METER 282 mg/dL 70-110 H : TESTED A T [facility] 6720 (BEAKER) (test code = [facility], 153) 45866: Dye House Supervisor/Techni rose ID = [id number] for LETI SOUSA POCT-GLUCOSE [id number] 08:19:00 Test Item Value Reference Range Interpretation Comments POC-GLUCOSE METER 329 mg/dL 70-110 H : TESTED A T [facility] 6720 (BEAKER) (test code = [facility], 153) 26277: Dye House Supervisor/Techni rose ID = [id number] for AARON COTTRELL POCT-GLUCOSE [id number] 21:32:00 Test Item Value Reference Range Interpretation Comments POC-GLUCOSE METER 275 mg/dL 70-110 H : TESTED A T [facility] 6720 (BEAKER) (test code = [facility], 153) 82024: Dye House Supervisor/Techni rose ID = [id number] for MG LANZA POCT-GLUCOSE [id number] 17:47:00 Test Item Value Reference Range Interpretation Comments POC-GLUCOSE METER 304 mg/dL 70-110 H : TESTED A T [facility] 6720 (BEAKER) (test code = [facility], 153) 92271: Dye House Supervisor/Techni rose ID = [id number] for SAM BLAIR, ERIN URINE [id number] 15:21:00 Test Item Value Reference Range Interpretation Comments CULTURE (Intradiem) A >100,000 co l/mL (test code = 1095) Beta-hemo lytic streptococcus g roup B, by serologic al grouping CULTURE (Intradiem) PROTEUS A 80-89,000 c ol/mL (test code [...] Tobramycin (test code R = 25) POCT-GLUCOSE [id number] 12:16:00 Test Item Value Reference Range Interpretation Comments POC-GLUCOSE METER 337 mg/dL 70-110 H : TESTED A T [facility] 6720 (BEAKER) (test code = [facility], 1538) 51675: Dye House Supervisor/Techni rose ID = [id number] for ERIN ARIZMENDI BASIC METABOLIC [id number] 10:39:00 Test Item Value Reference Range Interpretation [...] S NOT APPLICABLE FOR DIALYSIS PATIEN TS. Dye House Supervisor ID - JANET FPOCT-GLUCOSE [id number] 08:29:00 Test Item Value Reference Range Interpretation Comments POC-GLUCOSE METER 395 mg/dL 70-110 H : TESTED A T [facility] 6720 (BEAKER) (test code = [facility], 1538) 02755: Dye House Supervisor/Techni rose ID = [id number] for ERIN ARIZMENDI CBC W/PLT COUNT & AUTO [id number] 06:40:00 Test Item Value Reference Range Interpretation [...] PERCENT (BEAKER) (test code = 2801) POCT-GLUCOSE [id number] 19:55:00 Test Item Value Reference Range Interpretation Comments POC-GLUCOSE METER 369 mg/dL 70-110 H : TESTED A T [facility] 6720 (BEAKER) (test code = [facility], 1538) 33726: Dye House Supervisor/Techni rose ID = [id number] for MG LANZA POCT-GLUCOSE [id number] 16:45:00 Test Item Value Reference Range Interpretation Comments POC-GLUCOSE METER 272 mg/dL 70-110 H : TESTED A T [facility] 6720 (BEAKER) (test code = [facility], 1538) 57443: Dye House Supervisor/Techni rose ID = [id number] for FRIEDA PALOMINO POCT-GLUCOSE [id number] 11:40:00 Test Item Value Reference Range Interpretation Comments POC-GLUCOSE METER 277 mg/dL 70-110 H : TESTED A T [facility] 6720 (BEAKER) (test code = [facility], 1538) 43747: Dye House Supervisor/Techni rose ID = [id number] for FRIEDA PALOMINO BASIC METABOLIC [id number] 10:22:00 Test Item Value Reference Range Interpretation [...] S NOT APPLICABLE FOR DIALYSIS PATIEN TS. Dye House Supervisor ID - NTPLIPID [id number] 10:17:00 Test Item Value Reference Range Interpretation [...] Borderline 130-159 High 160-189 Very High >=190 Dye House Supervisor ID - NTPPOCT-GLUCOSE METER 2019-07-24 08:28:00 Test Item Value Reference Range Interpretation Comments POC-GLUCOSE METER 388 mg/dL 70-110 H : TESTED A T [facility] (BEAKER) (test code = [place], 1538) [address]: Dye House Supervisor/Techni rose ID = [id number] for AARON COTTRELL HEMOGLOBIN [id number] 07:54:00 Test Item Value Reference Range Interpretation Comments HEMOGLOBIN A1C (BEAKER) (test code = 10.4 % 4.3-6.1 H 368) CBC W/PLT COUNT & AUTO [id number] 05:56:00 Test Item Value Reference Range Interpretation [...] PERCENT (BEAKER) (test code = 2801) POCT-GLUCOSE [id number] 23:47:00 Test Item Value Reference Range Interpretation Comments POC-GLUCOSE METER 359 mg/dL 70-110 H : Notified RN/MD: ([facility]) (test code = TESTED AT [place] [address] 1538) [facility], [address]: Dye House Supervisor/Techni rose ID = [id number] for LATHBRIDGE, MICHELINE ICE POCT-GLUCOSE [id number] 21:13:00 Test Item Value Reference Range Interpretation Comments POC-GLUCOSE METER 315 mg/dL 70-110 H : TESTED A T [facility] 67 ([facility]) (test code = [facility] Adriano [facility], 1538) [address]: Dye House Supervisor/Techni rose ID = [id number] for Sm ith, Ana POCT-GLUCOSE [id number] 21:13:00 Test Item Value Reference Range Interpretation Comments POC-GLUCOSE METER 331 mg/dL 70-110 H : TESTED A T [facility] 6720 (BEAKER) (test code = [place], 1538) [address]: Dye House Supervisor/Techni rose ID = [id number] for JERRICA GONZALEZ POCT-GLUCOSE [id number] 10:30:00 Test Item Value Reference Range Interpretation Comments POC-GLUCOSE METER 341 mg/dL 70-110 H : TESTED A T [facility] 6720 (BEAKER) (test code = [facility], 1538) [address]: Dye House Supervisor/Techni rose ID = [id number] for Ana Porter CBC W/PLT COUNT & AUTO [id number] 08:48:00 Test Item Value Reference Range Interpretation [...] (BEAKER) (test code = Present 1371) HEMOGLOBIN [id number] 06:39:00 Test Item Value Reference Range Interpretation Comments HEMOGLOBIN A1C (BEAKER) (test code = 10.5 % 4.3-6.1 H 368) LIPID [id number] 04:57:00 Test Item Value Reference Range Interpretation [...] Very High >=190 Specimen moderately lipemicBASIC METABOLIC [id number] 04:56:00 Test Item Value Reference Range Interpretation [...] NOT APPLICABLE FOR DIALYSIS PATIEN TS. POCT-GLUCOSE [id number] 21:53:00 Test Item Value Reference Range Interpretation Comments POC-GLUCOSE METER > mg/dL 70-110 HH : Notified RN/MD: TESTED (BEAKER) (test code = AT [facility] 6720 [facility] 1538) [facility], [address]: Dye House Supervisor/Techni rose ID = [id number] for DESIRAE MENDOZA U/S, ABDOMINAL, [id number] 19:54:00Reason for exam:->Evaluation of SWAHILI TEACHER shunt and for possible cyst or pseudocyst Should this be performed at the bedside?->YesFINAL REPORT Limited abdominal ultrasound. CLINICAL HISTORY: Evaluation of SWAHILI TEACHER shunt for possible cyst or pseudocyst. COMPARISON STUDY: None available. FINDINGS: Sonographic assessment of the abdomen was performed assessing for fluid in the region of the patient's shunts. No fluid collections are seen. However, the study is limited by the patient's body habitus. CT scan would be more sensitive. Signed: Óscar Miles MDReport Verified Date/Time: 07/22/2019 19:54:10 Reading Location: [facility] C0W Consult Reading Room POCT-GLUCOSE [id number] 19:34:00 Test Item Value Reference Range Interpretation Comments POC-GLUCOSE METER 474 mg/dL 70-110 HH : Notified RN/MD: (BEAKER) (test code = TESTED AT [facility] 1986 4657) [facility], [address]: Dye House Supervisor/Techni rose ID = [id number] for AK ROSMERYUMARILYNN URINALYSIS W/ REFLEX URINE [id number] 17:48:00 Test Item Value Reference Range Interpretation [...] = Moderate 517) SOURCE(BEAKER) (test code = 0576) CBC W/PLT COUNT & AUTO [id number] 17:38:00 Test Item Value Reference Range Interpretation [...] 3438) Received comment: User comments: Slide comments:POCT-GLUCOSE [id number] 16:27:00 Test Item Value Reference Range Interpretation Comments POC-GLUCOSE METER 424 mg/dL 70-110 HH : Notified RN/MD: (BEAKER) (test code = TESTED AT [facility] 6720 1538) [facility], [address]: Dye House Supervisor/Techni rose ID = [id number] for MARILYNN MAO CT, BRAIN, WITHOUT [id number] 15:31:00FINAL REPORT CT, BRAIN, WITHOUT CONTRAST CLINICAL [...] MDReport Verified Date/Time: 07/22/2019 15:31:08 Reading Location: [facility] C013 Neuro Reading Room RAD, SHUNT [id number] 15:13:00Reason for exam:->concern for VPS malfunctionFINAL REPORT [...] Plasencia Verified Date/Time: 07/22/2019 15:13:54 Reading Location: [facility] Radiology Reading Room POCT-GLUCOSE [id number] 11:38:00 Test Item Value Reference Range Interpretation Comments POC-GLUCOSE METER 394 mg/dL 70-110 H : TESTED A T [facility] 6720 (BEAKER) (test code = [place], 1538) [address]: Dye House Supervisor/Techni rose ID = [id number] for MARILYNN MAO HEMOGLOBIN [id number] 09:15:00 Test Item Value Reference Range Interpretation Comments HEMOGLOBIN A1C (BEAKER) (test code = 10.4 % 4.3-6.1 H 368) TSH/FREE T4 IF [id number] 07:54:00 Test Item Value Reference Range Interpretation Comments THYROID STIMULATING HORMONE 1.40 uIU/mL 0.35-4.94 (BEAKER) (test code = 772) POCT-GLUCOSE [id number] 07:48:00 Test Item Value Reference Range Interpretation Comments POC-GLUCOSE METER > mg/dL 70-110 HH : Notified RN/MD: TESTED (BEAKER) (test code = AT [facility] 1538) [place], [address]: Dye House Supervisor/Techni rose ID = [id number] for MARILYNN SMITH BASIC METABOLIC [id number] 07:44:00 Test Item Value Reference Range Interpretation [...] NOT APPLICABLE FOR DIALYSIS PATIEN TS. LIPID [id number] 07:34:00 Test Item Value Reference Range Interpretation [...] Borderline 130-159 High 160-189 Very High >=190POCT-GLUCOSE [id number] 00:49:00 Test Item Value Reference Range Interpretation Comments POC-GLUCOSE METER 399 mg/dL 70-110 H : TESTED A T [facility] 6720 (FELICIANO) (test code = [place], 1538) [address]: Dye House Supervisor/Techni rose ID = [id number] for CHERYLE LINDA RAD, FOOT, 2 VIEWS, [id number] 22:28:00Reason for exam:->osteomyletitis FINAL REPORT TECHNIQUE: Two [...] osteomyelitis, recommend MRI with contrast. Signed: Andrew CardenasALLO Communications Verified Date/Time: 07/21/2019 22:28:25 Reading Location: [facility] C013 Consult Reading Room RAD, FOOT, 2 VIEWS, [id number] 22:28:00Reason for exam:->osteomyletitsFINAL REPORT TECHNIQUE: Two views [...] recommend MRI with contrast. Signed: Andrew Cardenas ZAPITANOmorisALLO [employer] Verified Date/Time: 07/21/2019 22:28:25 Reading Location: [facility] C013 Consult Reading Room Electronically signed by: ANDREW CARDENAS DO 07/21/2019 10:28 PMPOCT-GLUCOSE [id number] 21:04:00 Test Item Value Reference Range Interpretation Comments POC-GLUCOSE METER 430 mg/dL 70-110 HH : Notified RN/MD: (FELICIANO) (test code = TESTED AT [facility] 6715 1537) [facility] [place], [address]: Dye House Supervisor/Techni rose ID = [id number] for ALBERTO OLIVER ERTAPENEM:SUSC:PT:ISOLATE:ORDQN:[id number] 16:48:00 Test Item Value Reference Range Interpretation Comments Culture: Urine (test >100,000 CFU/mL Proteus code = Culture: mirabilis 10,000 - Urine) 50,000 CFU/mL Skin Marilee [facility]ERT[facility]:SUSC:PT:ISOLATE:ORDQN:[id number] 16:48:00 Test Item Value Reference Range Interpretation Comments Proteus mirabilis (test Proteus mirabilis code = Proteus mirabilis) [facility] AND [id number] 16:48:00 Test Item Value Reference Range Interpretation Comments UA Nitrite (test code Negative (05/22/18 10:48 = UA Nitrite) AM) [facility] AND [id number] 16:48:00 Test Item Value Reference Range Interpretation Comments UA Bili (test code = Negative *NA*(05/22/18 UA Bili) 10:48 AM) [facility] AND [id number] 16:48:00 Test Item Value Reference Range Interpretation Comments UA Ketones (test code Negative *NA*(05/22/18 = UA Ketones) 10:48 AM) [facility] AND [id number] 16:48:00 Test Item Value Reference Range Interpretation Comments UA Blood (test code = Trace *ABN*(05/22/18 UA Blood) 10:48 AM) [facility] AND [id number] 16:48:00 Test Item Value Reference Range Interpretation Comments UA Urobilinogen (test code = UA 0.2 0.1-1.0 Urobilinogen) [facility] AND [id number] 16:48:00 Test Item Value Reference Range Interpretation Comments UA Leuk Est (test code Large *ABN*(05/22/18 = UA Leuk Est) 10:48 AM) [facility] AND [id number] 16:48:00 Test Item Value Reference Range Interpretation Comments UA Protein (test code Negative (05/22/18 10:48 = UA Protein) AM) [facility] AND [id number] 16:48:00 Test Item Value Reference Range Interpretation Comments UA Glucose (test code Negative (05/22/18 10:48 = UA Glucose) AM) [facility] AND [id number] 16:48:00 Test Item Value Reference Range Interpretation Comments UA pH (test code = UA pH) 7.0 1 5.0-8.0 [facility] AND [id number] 16:48:00 Test Item Value Reference Range Interpretation Comments UA Spec Grav (test code = UA Spec 1.015 1 Grav) [facility] AND [id number] 16:48:00 Test Item Value Reference Range Interpretation Comments UA Color (test code = Yellow *NA*(05/22/18 UA Color) 10:48 AM) [facility] AND [id number] 16:48:00 Test Item Value Reference Range Interpretation Comments UA Turbidity (test code = Clear (05/22/18 10:48 UA Turbidity) AM) [facility] AND [id number] 16:48:00 Test Item Value Reference Range Interpretation Comments UA Mucus (test code = UA Mucus) Few /LPF [facility] AND [id number] 16:48:00 Test Item Value Reference Range Interpretation Comments UA Bacteria (test code = UA Few /HPF Bacteria) [facility] AND [id number] 16:48:00 Test Item Value Reference Range Interpretation Comments UA RBC (test code = 0-2 /HPF See_Comment [Automa lester message] The UA RBC) system which ge nerated this result tra nsmitted reference range : <=2. The reference range was not used to interpr et this result as dany l/abnormal. [facility] AND [id number] 16:48:00 Test Item Value Reference Range Interpretation Comments UA Sq Epi (test code = None Seen (05/22/18 UA Sq Epi) 10:48 AM) [facility] AND [id number] 16:48:00 Test Item Value Reference Range Interpretation Comments UA WBC (test code = UA WBC) 51-100 /HPF [facility]C:PT:ISOLATE:ORDQN:[id number] 16:48:00 Test Item Value Reference Range Interpretation Comments Culture: Urine (test >100,000 CFU/mL Proteus code = Culture: mirabilis 10,000 - Urine) 50,000 CFU/mL Skin Marilee [facility]:SUSC:PT:ISOLATE:ORDQN:[id number] 16:48:00 Test Item Value Reference Range Interpretation Comments Proteus mirabilis (test Proteus mirabilis code = Proteus mirabilis) [facility] AND [id number] 16:48:00 Test Item Value Reference Range Interpretation Comments UA Nitrite (test code Negative (05/22/18 10:48 = UA Nitrite) AM) [facility] AND [id number] 16:48:00 Test Item Value Reference Range Interpretation Comments UA Bili (test code = Negative *NA*(05/22/18 UA Bili) 10:48 AM) [facility] AND [id number] 16:48:00 Test Item Value Reference Range Interpretation Comments UA Ketones (test code Negative *NA*(05/22/18 = UA Ketones) 10:48 AM) [facility] AND [id number] 16:48:00 Test Item Value Reference Range Interpretation Comments UA Blood (test code = Trace *ABN*(05/22/18 UA Blood) 10:48 AM) [facility] AND [id number] 16:48:00 Test Item Value Reference Range Interpretation Comments UA Urobilinogen (test code = UA 0.2 0.1-1.0 Urobilinogen) [facility] AND [id number] 16:48:00 Test Item Value Reference Range Interpretation Comments UA Leuk Est (test code Large *ABN*(05/22/18 = UA Leuk Est) 10:48 AM) [facility] AND [id number] 16:48:00 Test Item Value Reference Range Interpretation Comments UA Protein (test code Negative (05/22/18 10:48 = UA Protein) AM) [facility] AND [id number] 16:48:00 Test Item Value Reference Range Interpretation Comments UA Glucose (test code Negative (05/22/18 10:48 = UA Glucose) AM) [facility] AND [id number] 16:48:00 Test Item Value Reference Range Interpretation Comments UA pH (test code = UA pH) 7.0 1 5.0-8.0 [facility] AND [id number] 16:48:00 Test Item Value Reference Range Interpretation Comments UA Spec Grav (test code = UA Spec 1.015 1 Grav) [facility] AND [id number] 16:48:00 Test Item Value Reference Range Interpretation Comments UA Color (test code = Yellow *NA*(05/22/18 UA Color) 10:48 AM) [facility] AND [id number] 16:48:00 Test Item Value Reference Range Interpretation Comments UA Turbidity (test code = Clear (05/22/18 10:48 UA Turbidity) AM) [facility] AND [id number] 16:48:00 Test Item Value Reference Range Interpretation Comments UA Mucus (test code = UA Mucus) Few /LPF [facility] AND [id number] 16:48:00 Test Item Value Reference Range Interpretation Comments UA Bacteria (test code = UA Few /HPF Bacteria) [facility] AND [id number] 16:48:00 Test Item Value Reference Range Interpretation Comments UA RBC (test code = 0-2 /HPF See_Comment [Automa lester message] The UA RBC) system which ge nerated this result tra nsmitted reference range : <=2. The reference range was not used to interpr et this result as dany l/abnormal. [facility] AND [id number] 16:48:00 Test Item Value Reference Range Interpretation Comments UA Sq Epi (test code = None Seen (05/22/18 UA Sq Epi) 10:48 AM) [facility] AND [id number] 16:48:00 Test Item Value Reference Range Interpretation Comments UA WBC (test code = UA WBC) 51-100 /HPF [facility]:PT:ISOLATE:ORDQN:[id number] 16:48:00 Test Item Value Reference Range Interpretation Comments Culture: Urine (test >100,000 CFU/mL Proteus code = Culture: mirabilis 10,000 - Urine) 50,000 CFU/mL Skin Marilee [facility]ERT[facility]EM:SUSC:PT:ISOLATE:JOHNNYQN:[id number] 16:48:00 Test Item Value Reference Range Interpretation Comments Proteus mirabilis (test Proteus mirabilis code = Proteus mirabilis) [facility] AND [id number] 16:48:00 Test Item Value Reference Range Interpretation Comments UA Nitrite (test code Negative (05/22/18 10:48 = UA Nitrite) AM) [facility] AND [id number] 16:48:00 Test Item Value Reference Range Interpretation Comments UA Bili (test code = Negative *NA*(05/22/18 UA Bili) 10:48 AM) [facility] AND [id number] 16:48:00 Test Item Value Reference Range Interpretation Comments UA Ketones (test code Negative *NA*(05/22/18 = UA Ketones) 10:48 AM) [facility] AND [id number] 16:48:00 Test Item Value Reference Range Interpretation Comments UA Blood (test code = Trace *ABN*(05/22/18 UA Blood) 10:48 AM) [facility] AND [id number] 16:48:00 Test Item Value Reference Range Interpretation Comments UA Urobilinogen (test code = UA 0.2 0.1-1.0 Urobilinogen) [facility] AND [id number] 16:48:00 Test Item Value Reference Range Interpretation Comments UA Leuk Est (test code Large *ABN*(05/22/18 = UA Leuk Est) 10:48 AM) [facility] AND [id number] 16:48:00 Test Item Value Reference Range Interpretation Comments UA Protein (test code Negative (05/22/18 10:48 = UA Protein) AM) [facility] AND [id number] 16:48:00 Test Item Value Reference Range Interpretation Comments UA Glucose (test code Negative (05/22/18 10:48 = UA Glucose) AM) [facility] AND [id number] 16:48:00 Test Item Value Reference Range Interpretation Comments UA pH (test code = UA pH) 7.0 1 5.0-8.0 [facility] AND [id number] 16:48:00 Test Item Value Reference Range Interpretation Comments UA Spec Grav (test code = UA Spec 1.015 1 Grav) [facility] AND [id number] 16:48:00 Test Item Value Reference Range Interpretation Comments UA Color (test code = Yellow *NA*(05/22/18 UA Color) 10:48 AM) [facility] AND [id number] 16:48:00 Test Item Value Reference Range Interpretation Comments UA Turbidity (test code = Clear (05/22/18 10:48 UA Turbidity) AM) [facility] AND [id number] 16:48:00 Test Item Value Reference Range Interpretation Comments UA Mucus (test code = UA Mucus) Few /LPF [facility] AND [id number] 16:48:00 Test Item Value Reference Range Interpretation Comments UA Bacteria (test code = UA Few /HPF Bacteria) [facility] AND [id number] 16:48:00 Test Item Value Reference Range Interpretation Comments UA RBC (test code = 0-2 /HPF See_Comment [Automa lester message] The UA RBC) system which ge nerated this result tra nsmitted reference range : <=2. The reference range was not used to interpr et this result as dany l/abnormal. [facility] AND [id number] 16:48:00 Test Item Value Reference Range Interpretation Comments UA Sq Epi (test code = None Seen (05/22/18 UA Sq Epi) 10:48 AM) [facility] AND [id number] 16:48:00 Test Item Value Reference Range Interpretation Comments UA WBC (test code = UA WBC) 51-100 /HPF [facility] HermannERTAPENEM:SUSC:PT:ISOLATE:ORDQN:[id number] 16:48:00 Test Item Value Reference Range Interpretation Comments Culture: Urine (test >100,000 CFU/mL Proteus code = Culture: mirabilis 10,000 - Urine) 50,000 CFU/mL [facility]SUSC:PT:ISOLATE:ORDQN:[id number] 16:48:00 Test Item Value Reference Range Interpretation Comments Proteus mirabilis (test Proteus mirabilis code = Proteus mirabilis) [facility] AND [id number] 16:48:00 Test Item Value Reference Range Interpretation Comments UA Nitrite (test code Negative (05/22/18 10:48 = UA Nitrite) AM) [facility] AND [id number] 16:48:00 Test Item Value Reference Range Interpretation Comments UA Bili (test code = Negative *NA*(05/22/18 UA Bili) 10:48 AM) [facility] AND [id number] 16:48:00 Test Item Value Reference Range Interpretation Comments UA Ketones (test code Negative *NA*(05/22/18 = UA Ketones) 10:48 AM) [facility] AND [id number] 16:48:00 Test Item Value Reference Range Interpretation Comments UA Blood (test code = Trace *ABN*(05/22/18 UA Blood) 10:48 AM) [facility] AND [id number] 16:48:00 Test Item Value Reference Range Interpretation Comments UA Urobilinogen (test code = UA 0.2 0.1-1.0 Urobilinogen) [facility] AND [id number] 16:48:00 Test Item Value Reference Range Interpretation Comments UA Leuk Est (test code Large *ABN*(05/22/18 = UA Leuk Est) 10:48 AM) [facility] AND [id number] 16:48:00 Test Item Value Reference Range Interpretation Comments UA Protein (test code Negative (05/22/18 10:48 = UA Protein) AM) [facility] AND [id number] 16:48:00 Test Item Value Reference Range Interpretation Comments UA Glucose (test code Negative (05/22/18 10:48 = UA Glucose) AM) [facility] AND [id number] 16:48:00 Test Item Value Reference Range Interpretation Comments UA pH (test code = UA pH) 7.0 1 5.0-8.0 [facility] AND [id number] 16:48:00 Test Item Value Reference Range Interpretation Comments UA Spec Grav (test code = UA Spec 1.015 1 Grav) [facility] AND [id number] 16:48:00 Test Item Value Reference Range Interpretation Comments UA Color (test code = Yellow *NA*(05/22/18 UA Color) 10:48 AM) [facility] AND [id number] 16:48:00 Test Item Value Reference Range Interpretation Comments UA Turbidity (test code = Clear (05/22/18 10:48 UA Turbidity) AM) [facility] AND [id number] 16:48:00 Test Item Value Reference Range Interpretation Comments UA Mucus (test code = UA Mucus) Few /LPF [facility] AND [id number] 16:48:00 Test Item Value Reference Range Interpretation Comments UA Bacteria (test code = UA Few /HPF Bacteria) [facility] AND [id number] 16:48:00 Test Item Value Reference Range Interpretation Comments UA RBC (test code = 0-2 /HPF See_Comment [Automa lester message] The UA RBC) system which ge nerated this result tra nsmitted reference range : <=2. The reference range was not used to interpr et this result as dany l/abnormal. [facility] AND [id number] 16:48:00 Test Item Value Reference Range Interpretation Comments UA Sq Epi (test code = None Seen (05/22/18 UA Sq Epi) 10:48 AM) [facility] AND [id number] 16:48:00 Test Item Value Reference Range Interpretation Comments UA WBC (test code = UA WBC) 51-100 /HPF [facility]SUSC:PT:ISOLATE:ORDQN:[id number] 16:48:00 Test Item Value Reference Range Interpretation Comments Culture: Urine (test >100,000 CFU/mL Proteus code = Culture: mirabilis 10,000 - Urine) 50,000 CFU/mL Skin [facility]annERTAPENEM:SUSC:PT:ISOLATE:ORDQN:[id number] 16:48:00 Test Item Value Reference Range Interpretation Comments Proteus mirabilis (test Proteus mirabilis code = Proteus mirabilis) [facility] AND [id number] 16:48:00 Test Item Value Reference Range Interpretation Comments UA Nitrite (test code Negative (05/22/18 10:48 = UA Nitrite) AM) [facility] AND [id number] 16:48:00 Test Item Value Reference Range Interpretation Comments UA Bili (test code = Negative *NA*(05/22/18 UA Bili) 10:48 AM) [facility] AND [id number] 16:48:00 Test Item Value Reference Range Interpretation Comments UA Ketones (test code Negative *NA*(05/22/18 = UA Ketones) 10:48 AM) [facility] AND [id number] 16:48:00 Test Item Value Reference Range Interpretation Comments UA Blood (test code = Trace *ABN*(05/22/18 UA Blood) 10:48 AM) [facility] AND [id number] 16:48:00 Test Item Value Reference Range Interpretation Comments UA Urobilinogen (test code = UA 0.2 0.1-1.0 Urobilinogen) [facility] AND [id number] 16:48:00 Test Item Value Reference Range Interpretation Comments UA Leuk Est (test code Large *ABN*(05/22/18 = UA Leuk Est) 10:48 AM) [facility] AND [id number] 16:48:00 Test Item Value Reference Range Interpretation Comments UA Protein (test code Negative (05/22/18 10:48 = UA Protein) AM) [facility] AND [id number] 16:48:00 Test Item Value Reference Range Interpretation Comments UA Glucose (test code Negative (05/22/18 10:48 = UA Glucose) AM) [facility] AND [id number] 16:48:00 Test Item Value Reference Range Interpretation Comments UA pH (test code = UA pH) 7.0 1 5.0-8.0 [facility] AND [id number] 16:48:00 Test Item Value Reference Range Interpretation Comments UA Spec Grav (test code = UA Spec 1.015 1 Grav) [facility] AND [id number] 16:48:00 Test Item Value Reference Range Interpretation Comments UA Color (test code = Yellow *NA*(05/22/18 UA Color) 10:48 AM) [facility] AND [id number] 16:48:00 Test Item Value Reference Range Interpretation Comments UA Turbidity (test code = Clear (05/22/18 10:48 UA Turbidity) AM) [facility] AND [id number] 16:48:00 Test Item Value Reference Range Interpretation Comments UA Mucus (test code = UA Mucus) Few /LPF [facility] AND [id number] 16:48:00 Test Item Value Reference Range Interpretation Comments UA Bacteria (test code = UA Few /HPF Bacteria) [facility] AND [id number] 16:48:00 Test Item Value Reference Range Interpretation Comments UA RBC (test code = 0-2 /HPF See_Comment [Automa lester message] The UA RBC) system which ge nerated this result tra nsmitted reference range : <=2. The reference range was not used to interpr et this result as dany l/abnormal. [facility] AND [id number] 16:48:00 Test Item Value Reference Range Interpretation Comments UA Sq Epi (test code = None Seen (05/22/18 UA Sq Epi) 10:48 AM) [facility] AND [id number] 16:48:00 Test Item Value Reference Range Interpretation Comments UA WBC (test code = UA WBC) 51-100 /HPF [facility]annERT[facility]EM:SUSC:PT:ISOLATE:ORDQN:[id number] 16:48:00 Test Item Value Reference Range Interpretation Comments Culture: Urine (test >100,000 CFU/mL Proteus code = Culture: mirabilis 10,000 - Urine) 50,000 CFU/mL Skin [facility] CenterannERTAPENEM:SUSC:PT:ISOLATE:ORDQN:[id number] 16:48:00 Test Item Value Reference Range Interpretation Comments Proteus mirabilis (test Proteus mirabilis code = Proteus mirabilis) [facility] AND [id number] 16:48:00 Test Item Value Reference Range Interpretation Comments UA Nitrite (test code Negative (05/22/18 10:48 = UA Nitrite) AM) [facility] AND [id number] 16:48:00 Test Item Value Reference Range Interpretation Comments UA Bili (test code = Negative *NA*(05/22/18 UA Bili) 10:48 AM) [facility] AND [id number] 16:48:00 Test Item Value Reference Range Interpretation Comments UA Ketones (test code Negative *NA*(05/22/18 = UA Ketones) 10:48 AM) [facility] AND [id number] 16:48:00 Test Item Value Reference Range Interpretation Comments UA Blood (test code = Trace *ABN*(05/22/18 UA Blood) 10:48 AM) [facility] AND [id number] 16:48:00 Test Item Value Reference Range Interpretation Comments UA Urobilinogen (test code = UA 0.2 0.1-1.0 Urobilinogen) [facility] AND [id number] 16:48:00 Test Item Value Reference Range Interpretation Comments UA Leuk Est (test code Large *ABN*(05/22/18 = UA Leuk Est) 10:48 AM) [facility] AND [id number] 16:48:00 Test Item Value Reference Range Interpretation Comments UA Protein (test code Negative (05/22/18 10:48 = UA Protein) AM) [facility] AND [id number] 16:48:00 Test Item Value Reference Range Interpretation Comments UA Glucose (test code Negative (05/22/18 10:48 = UA Glucose) AM) [facility] AND [id number] 16:48:00 Test Item Value Reference Range Interpretation Comments UA pH (test code = UA pH) 7.0 1 5.0-8.0 [facility] AND [id number] 16:48:00 Test Item Value Reference Range Interpretation Comments UA Spec Grav (test code = UA Spec 1.015 1 Grav) [facility] AND [id number] 16:48:00 Test Item Value Reference Range Interpretation Comments UA Color (test code = Yellow *NA*(05/22/18 UA Color) 10:48 AM) [facility] AND [id number] 16:48:00 Test Item Value Reference Range Interpretation Comments UA Turbidity (test code = Clear (05/22/18 10:48 UA Turbidity) AM) [facility] AND [id number] 16:48:00 Test Item Value Reference Range Interpretation Comments UA Mucus (test code = UA Mucus) Few /LPF [facility] AND [id number] 16:48:00 Test Item Value Reference Range Interpretation Comments UA Bacteria (test code = UA Few /HPF Bacteria) [facility] AND [id number] 16:48:00 Test Item Value Reference Range Interpretation Comments UA RBC (test code = 0-2 /HPF See_Comment [Automa lester message] The UA RBC) system which ge nerated this result tra nsmitted reference range : <=2. The reference range was not used to interpr et this result as dany l/abnormal. [facility] AND [id number] 16:48:00 Test Item Value Reference Range Interpretation Comments UA Sq Epi (test code = None Seen (05/22/18 UA Sq Epi) 10:48 AM) [facility] AND [id number] 16:48:00 Test Item Value Reference Range Interpretation Comments UA WBC (test code = UA WBC) 51-100 /HPF [facility] [place] [id number] 11:57:00 Test Item Value Reference Range Interpretation Comments Antibody Scrn (test Negative (05/22/18 5:57 code = Antibody Scrn) AM) [facility]Ed[facility] [place] [id number] 11:57:00 Test Item Value Reference Range Interpretation Comments ABO/Rh (test code = ABO/Rh) AB POS [facility] [id number] 11:57:00 Test Item Value Reference Range Interpretation Comments PTT (test code = PTT) 33.4 s 22.9-35.8 [facility] Tyl[id number] 11:57:00 Test Item Value Reference Range Interpretation Comments PT (test code = PT) 13.7 s 12.0-14.7 [facility] [id number] 11:57:00 Test Item Value Reference Range Interpretation Comments INR (test code = INR) 1.05 1 0.85-1.17 [facility] [id number] 11:57:00 Test Item Value Reference Range Interpretation Comments Antibody Scrn (test Negative (05/22/18 5:57 code = Antibody Scrn) AM) [facility] [id number] 11:57:00 Test Item Value Reference Range Interpretation Comments ABO/Rh (test code = ABO/Rh) AB POS [facility] [id number] 11:57:00 Test Item Value Reference Range Interpretation Comments PTT (test code = PTT) 33.4 s 22.9-35.8 [facility] TylerQqnqivkSGSKMVQCBW1718-80-09 11:57:00 Test Item Value Reference Range Interpretation Comments PT (test code = PT) 13.7 s 12.0-14.7 [facility] [id number] 11:57:00 Test Item Value Reference Range Interpretation Comments INR (test code = INR) 1.05 1 0.85-1.17 [facility] [id number] 11:57:00 Test Item Value Reference Range Interpretation Comments Antibody Scrn (test Negative (05/22/18 5:57 code = Antibody Scrn) AM) [facility] [id number] 11:57:00 Test Item Value Reference Range Interpretation Comments ABO/Rh (test code = ABO/Rh) AB POS [facility] Tyl[id number] 11:57:00 Test Item Value Reference Range Interpretation Comments PTT (test code = PTT) 33.4 s 22.9-35.8 [facility] [id number] 11:57:00 Test Item Value Reference Range Interpretation Comments PT (test code = PT) 13.7 s 12.0-14.7 [facility] [id number] 11:57:00 Test Item Value Reference Range Interpretation Comments INR (test code = INR) 1.05 1 0.85-1.17 [facility] [id number] 11:57:00 Test Item Value Reference Range Interpretation Comments Antibody Scrn (test Negative (05/22/18 5:57 code = Antibody Scrn) AM) [facility] [id number] 11:57:00 Test Item Value Reference Range Interpretation Comments ABO/Rh (test code = ABO/Rh) AB POS [facility] TylerNdeistpYLRNNIZWTC6753-89-01 11:57:00 Test Item Value Reference Range Interpretation Comments PTT (test code = PTT) 33.4 s 22.9-35.8 [facility] [id number] 11:57:00 Test Item Value Reference Range Interpretation Comments PT (test code = PT) 13.7 s 12.0-14.7 [facility] Tyl[id number] 11:57:00 Test Item Value Reference Range Interpretation Comments INR (test code = INR) 1.05 1 0.85-1.17 [facility] [id number] 11:57:00 Test Item Value Reference Range Interpretation Comments Antibody Scrn (test Negative (05/22/18 5:57 code = Antibody Scrn) AM) [facility] [id number] 11:57:00 Test Item Value Reference Range Interpretation Comments ABO/Rh (test code = ABO/Rh) AB POS [facility] TylerPrluwpbCOBGPPQVDE7997-65-19 11:57:00 Test Item Value Reference Range Interpretation Comments PTT (test code = PTT) 33.4 s 22.9-35.8 [facility] HospitalIuaplcbWNTZABXFWO6551-52-44 11:57:00 Test Item Value Reference Range Interpretation Comments PT (test code = PT) 13.7 s 12.0-14.7 [facility] TylerObdxeuuKXMMHSQTFI7194-87-12 11:57:00 Test Item Value Reference Range Interpretation Comments INR (test code = INR) 1.05 1 0.85-1.17 [facility] [id number] 11:57:00 Test Item Value Reference Range Interpretation Comments Antibody Scrn (test Negative (05/22/18 5:57 code = Antibody Scrn) AM) [facility] [id number] 11:57:00 Test Item Value Reference Range Interpretation Comments ABO/Rh (test code = ABO/Rh) AB POS [facility] [id number] 11:57:00 Test Item Value Reference Range Interpretation Comments PTT (test code = PTT) 33.4 s 22.9-35.8 [facility] CampusLgvefleQHVDYFVSOI7389-91-45 11:57:00 Test Item Value Reference Range Interpretation Comments PT (test code = PT) 13.7 s 12.0-14.7 [facility] HospitalLaboggmZIIGGPJPHV3649-29-98 11:57:00 Test Item Value Reference Range Interpretation Comments INR (test code = INR) 1.05 1 0.85-1.17 [facility] [employer] [id number] 10:50:01 Test Item Value Reference Range Interpretation Comments eGFR (test code = eGFR) 133 [facility] [id number] 10:50:01 Test Item Value Reference Range Interpretation Comments Calcium Lvl (test code = Calcium Lvl) 9.4 8.5-10.5 [facility]2018-11-08 10:50:01 Test Item Value Reference Range Interpretation Comments CO2 (test code = CO2) 28 24-32 [facility]2018-11-08 10:50:01 Test Item Value Reference Range Interpretation Comments BUN (test code = BUN) 14 7-22 [facility]2018-11-08 10:50:01 Test Item Value Reference Range Interpretation Comments Glucose Lvl (test code = Glucose Lvl) 89 70-99 [facility]2018-11-08 10:50:01 Test Item Value Reference Range Interpretation Comments Chloride Lvl (test code = Chloride Lvl) 104 95-109 [facility]2018-11-08 10:50:01 Test Item Value Reference Range Interpretation Comments Potassium Lvl (test code = Potassium 4.2 3.5-5.1 Lvl) [facility]2018-11-08 10:50:01 Test Item Value Reference Range Interpretation Comments Sodium Lvl (test code = Sodium Lvl) 137 135-145 [facility]2018-11-08 10:50:01 Test Item Value Reference Range Interpretation Comments Creatinine Lvl (test code = Creatinine 0.85 0.50-1.40 Lvl) [facility]2018-11-08 10:50:01 Test Item Value Reference Range Interpretation Comments AGAP (test code = AGAP) 9.2 10.0-20.0 [facility] TylerKjjdaymPXPZEWPCDS1432-88-57 10:50:01 Test Item Value Reference Range Interpretation Comments ACT (TEG) Rapid (test code = ACT (TEG) 136 s 86-118 Rapid) [facility] TylerIeimhugTKWABKEBYE5830-92-48 10:50:01 Test Item Value Reference Range Interpretation Comments Split Point Rapid (test code = Split 0.6 min Point Rapid) [facility] TylerSipfwyrPDBXAJDNFP5122-21-12 10:50:01 Test Item Value Reference Range Interpretation Comments R-time Rapid (test code = R-time 0.9 min 0.4-0.7 Rapid) [facility] TylerTahumwkNHBMUYDZJT1529-06-52 10:50:01 Test Item Value Reference Range Interpretation Comments K-time Rapid (test code = K-time 1.4 min 0.6-2.3 Rapid) [facility] TylerGxvzquvHYRPNSJFPN4724-50-30 10:50:01 Test Item Value Reference Range Interpretation Comments Angle Rapid (test code = Angle 71 degrees 64-80 Rapid) [facility] TylerXmldzwgGVHUIZSTQD3812-97-86 10:50:01 Test Item Value Reference Range Interpretation Comments G-value Rapid (test code = G-value 12.7 5.0-11.6 Rapid) [facility] TylerYypwssgPMOUGEERAO0771-78-11 10:50:01 Test Item Value Reference Range Interpretation Comments Max Amplitude Rapid (test code = Max 72 mm 52-71 Amplitude Rapid) [facility] TylerNtedjruAFXLWMTHDB7872-57-90 10:50:01 Test Item Value Reference Range Interpretation Comments Estimated % Lysis Rapid 0.1 See_Comment [Au tomated message] The (test code = Estimated syste m which generated % Lysis Rapid) this result t ransmitted reference range : <=7.5. The reference r boubacar was not used to int erpret this result as normal/abnormal . [facility] TylerDsiknfvBGLVMKAYLS4094-18-35 10:50:01 Test Item Value Reference Range Interpretation Comments Platelet (test code = Platelet) 367 133-450 [facility] TylerCmzjvcnYWIFBQNFDP7097-25-29 10:50:01 Test Item Value Reference Range Interpretation Comments MPV (test code = MPV) 7.8 7.4-10.4 [facility] TylerDcjujtsOSKZVXQDTM3452-77-66 10:50:01 Test Item Value Reference Range Interpretation Comments MCH (test code = MCH) 27.4 pg 27.0-31.0 [facility] TylerOlwimfsSHMCOFADCP5560-29-77 10:50:01 Test Item Value Reference Range Interpretation Comments MCV (test code = MCV) 80.7 80.0-94.0 [facility] TylerSabqtmrBUCCRPDBLZ5827-64-96 10:50:01 Test Item Value Reference Range Interpretation Comments MCHC (test code = MCHC) 34.0 32.0-36.0 [facility] TylerImmszxbIWQUZCXVKZ2917-01-81 10:50:01 Test Item Value Reference Range Interpretation Comments RDW (test code = RDW) 18.9 11.5-14.5 [facility] TylerGzmsihdZYEKABNKJH7935-22-86 10:50:01 Test Item Value Reference Range Interpretation Comments Hct (test code = Hct) 43.3 42.0-54.0 [facility] TylerBgikjxsHYFBTCPFCO7616-10-78 10:50:01 Test Item Value Reference Range Interpretation Comments WBC (test code = WBC) 9.3 3.7-10.4 [facility] TylerHwwjjbvGCMCFYNBBB8172-53-48 10:50:01 Test Item Value Reference Range Interpretation Comments Hgb (test code = Hgb) 14.7 14.0-18.0 [facility] TylerIuioouxFIJXJONSTW1502-80-44 10:50:01 Test Item Value Reference Range Interpretation Comments RBC (test code = RBC) 5.36 4.70-6.10 [facility] TylerBwjdcjkBSUAPMZQLG8128-96-39 10:50:01 Test Item Value Reference Range Interpretation Comments Eosinophils # (test code 0.2 See_Comment [A utomated message] The = Eosinophils #) system whic h generated this result tra nsmitted reference range : <=0.5. The reference r boubacar was not used to int erpret this result as normal/abnormal . [facility] TylerWsdcwygLAPAVJHALU6595-47-01 10:50:01 Test Item Value Reference Range Interpretation Comments Basophils # (test code 0.1 See_Comment [Aut omated message] The = Basophils #) system which generated this result tra nsmitted reference range : <=0.2. The reference r boubacar was not used to int erpret this result as normal/abnormal . [facility] TylerYgiekrmQSBIKSJLCT2054-11-64 10:50:01 Test Item Value Reference Range Interpretation Comments Lymphocytes # (test code = Lymphocytes 1.8 1.0-5.5 #) [facility] TylerNnraridYAWVYHERIK6591-49-18 10:50:01 Test Item Value Reference Range Interpretation Comments Monocytes # (test code 0.9 See_Comment [Aut omated message] The = Monocytes #) system which generated this result tra nsmitted reference range : <=0.8. The reference r boubacar was not used to int erpret this result as normal/abnormal . [facility] TylerUgdjiqzDKEGCPCXXH6590-61-37 10:50:01 Test Item Value Reference Range Interpretation Comments Neutrophils # (test code = Neutrophils 6.3 1.5-8.1 #) [facility] TylerSacmuxwJGKZDZCPVB8018-93-74 10:50:01 Test Item Value Reference Range Interpretation Comments Eosinophils (test code = 2.0 See_Comment [A utomated message] The Eosinophils) system which ge nerated this result tra nsmitted reference range : <=4.0. The reference r boubacar was not used to int erpret this result as normal/abnormal . [facility]KrqsqfgHRRNASQDNI6526-42-08 10:50:01 Test Item Value Reference Range Interpretation Comments Segs (test code = Segs) 67.4 45.0-75.0 [facility] TylerHgffypgYZDLZGDDMP7766-74-91 10:50:01 Test Item Value Reference Range Interpretation Comments Lymphocytes (test code = Lymphocytes) 19.9 20.0-40.0 [facility] TylerDxdsfzgIZTSWPMJPW7268-55-98 10:50:01 Test Item Value Reference Range Interpretation Comments Basophils (test code = 1.0 See_Comment [Aut omated message] The Basophils) system which ge nerated this result tra nsmitted reference range : <=1.0. The reference r boubacar was not used to int erpret this result as normal/abnormal . [facility] TylerEkygrruWFJUPDPZFA6534-82-96 10:50:01 Test Item Value Reference Range Interpretation Comments Monocytes (test code = Monocytes) 9.7 2.0-12.0 [facility]2018-11-08 10:50:01 Test Item Value Reference Range Interpretation Comments eGFR (test code = eGFR) 133 [facility]2018-11-08 10:50:01 Test Item Value Reference Range Interpretation Comments Calcium Lvl (test code = Calcium Lvl) 9.4 8.5-10.5 [facility]2018-11-08 10:50:01 Test Item Value Reference Range Interpretation Comments CO2 (test code = CO2) 28 24-32 [facility]2018-11-08 10:50:01 Test Item Value Reference Range Interpretation Comments BUN (test code = BUN) 14 7-22 [facility]2018-11-08 10:50:01 Test Item Value Reference Range Interpretation Comments Glucose Lvl (test code = Glucose Lvl) 89 70-99 [facility]2018-11-08 10:50:01 Test Item Value Reference Range Interpretation Comments Chloride Lvl (test code = Chloride Lvl) 104 95-109 [facility]2018-11-08 10:50:01 Test Item Value Reference Range Interpretation Comments Potassium Lvl (test code = Potassium 4.2 3.5-5.1 Lvl) [facility]2018-11-08 10:50:01 Test Item Value Reference Range Interpretation Comments Sodium Lvl (test code = Sodium Lvl) 137 135-145 [facility]2018-11-08 10:50:01 Test Item Value Reference Range Interpretation Comments Creatinine Lvl (test code = Creatinine 0.85 0.50-1.40 Lvl) [facility]2018-11-08 10:50:01 Test Item Value Reference Range Interpretation Comments AGAP (test code = AGAP) 9.2 10.0-20.0 [facility] TylerYenzchvGDWLZXNQBC0960-75-13 10:50:01 Test Item Value Reference Range Interpretation Comments ACT (TEG) Rapid (test code = ACT (TEG) 136 s 86-118 Rapid) [facility] TylerUufbhclHKVDTZCIYW9611-49-78 10:50:01 Test Item Value Reference Range Interpretation Comments Split Point Rapid (test code = Split 0.6 min Point Rapid) [facility] TylerClktycuGFLHKDHFEP6760-41-56 10:50:01 Test Item Value Reference Range Interpretation Comments R-time Rapid (test code = R-time 0.9 min 0.4-0.7 Rapid) [facility] TylerLisdktyTOHNNAAPXO1868-01-72 10:50:01 Test Item Value Reference Range Interpretation Comments K-time Rapid (test code = K-time 1.4 min 0.6-2.3 Rapid) [facility] TylerVuqxkpgODLDXJJNVA8084-79-34 10:50:01 Test Item Value Reference Range Interpretation Comments Angle Rapid (test code = Angle 71 degrees 64-80 Rapid) [facility] TylerQvyvvloZTKMNPLTPJ9784-24-19 10:50:01 Test Item Value Reference Range Interpretation Comments G-value Rapid (test code = G-value 12.7 5.0-11.6 Rapid) [facility] TylerQzvexpqBWZQGHLORT6971-85-89 10:50:01 Test Item Value Reference Range Interpretation Comments Max Amplitude Rapid (test code = Max 72 mm 52-71 Amplitude Rapid) [facility] TylerRkgtpdaIHRMIQVFFQ7453-97-25 10:50:01 Test Item Value Reference Range Interpretation Comments Estimated % Lysis Rapid 0.1 See_Comment [Au tomated message] The (test code = Estimated syste m which generated % Lysis Rapid) this result t ransmitted reference range : <=7.5. The reference r boubacar was not used to int erpret this result as normal/abnormal . [facility] TylerCazdzfiHCHCHLQEGK1839-80-04 10:50:01 Test Item Value Reference Range Interpretation Comments Platelet (test code = Platelet) 367 699-450 [facility] TylerZbgnpaqTIOXOCICUH4934-22-23 10:50:01 Test Item Value Reference Range Interpretation Comments MPV (test code = MPV) 7.8 7.4-10.4 [facility] TylerKjzfdwxOWOQGBJWIT6832-59-50 10:50:01 Test Item Value Reference Range Interpretation Comments MCH (test code = MCH) 27.4 pg 27.0-31.0 [facility] TylerQpfptphIHSHEHQZCF9341-73-27 10:50:01 Test Item Value Reference Range Interpretation Comments MCV (test code = MCV) 80.7 80.0-94.0 [facility] TylerIatcmuzEYTQBDMZIU2083-42-46 10:50:01 Test Item Value Reference Range Interpretation Comments MCHC (test code = MCHC) 34.0 32.0-36.0 [facility] TylerKaiwnhfLILRPLWHAU9288-04-12 10:50:01 Test Item Value Reference Range Interpretation Comments RDW (test code = RDW) 18.9 11.5-14.5 [facility] TylerShacsspFZGVZSQVMI8125-23-87 10:50:01 Test Item Value Reference Range Interpretation Comments Hct (test code = Hct) 43.3 42.0-54.0 [facility] TylerTfjvnskWGMLKGOFCI3334-76-92 10:50:01 Test Item Value Reference Range Interpretation Comments WBC (test code = WBC) 9.3 3.7-10.4 [facility] TylerZmzfvhpGDJKSYDAVP7270-15-75 10:50:01 Test Item Value Reference Range Interpretation Comments Hgb (test code = Hgb) 14.7 14.0-18.0 [facility] TylerYtixxszHQWJZOQIFW4073-81-43 10:50:01 Test Item Value Reference Range Interpretation Comments RBC (test code = RBC) 5.36 4.70-6.10 [facility] TylerSknufzyCQYCUWOGTW4592-44-19 10:50:01 Test Item Value Reference Range Interpretation Comments Eosinophils # (test code 0.2 See_Comment [A utomated message] The = Eosinophils #) system whic h generated this result tra nsmitted reference range : <=0.5. The reference r boubacar was not used to int erpret this result as normal/abnormal . [facility] TylerZdirisyGNAYJCAZDF7996-60-20 10:50:01 Test Item Value Reference Range Interpretation Comments Basophils # (test code 0.1 See_Comment [Aut omated message] The = Basophils #) system which generated this result tra nsmitted reference range : <=0.2. The reference r boubacar was not used to int erpret this result as normal/abnormal . [facility] TylerOgcyigoVFZTXRXEYJ4986-44-75 10:50:01 Test Item Value Reference Range Interpretation Comments Lymphocytes # (test code = Lymphocytes 1.8 1.0-5.5 #) [facility] TylerOmnhnijQHTKNSBXPN0606-81-69 10:50:01 Test Item Value Reference Range Interpretation Comments Monocytes # (test code 0.9 See_Comment [Aut omated message] The = Monocytes #) system which generated this result tra nsmitted reference range : <=0.8. The reference r boubacar was not used to int erpret this result as normal/abnormal . [facility] TylerFmhdmjkWEYEMOGKUH9025-10-54 10:50:01 Test Item Value Reference Range Interpretation Comments Neutrophils # (test code = Neutrophils 6.3 1.5-8.1 #) [facility] TylerLshozbxEUCIVVSEIU4219-60-95 10:50:01 Test Item Value Reference Range Interpretation Comments Eosinophils (test code = 2.0 See_Comment [A utomated message] The Eosinophils) system which ge nerated this result tra nsmitted reference range : <=4.0. The reference r boubacar was not used to int erpret this result as normal/abnormal . [facility] TylerRllasasHUJPLOLCMC7199-25-79 10:50:01 Test Item Value Reference Range Interpretation Comments Segs (test code = Segs) 67.4 45.0-75.0 [facility] TylerFwxndnnJKPPLOXLYJ3958-94-28 10:50:01 Test Item Value Reference Range Interpretation Comments Lymphocytes (test code = Lymphocytes) 19.9 20.0-40.0 [facility] TylerEyjuluwQHTHCYWKCZ1673-82-06 10:50:01 Test Item Value Reference Range Interpretation Comments Basophils (test code = 1.0 See_Comment [Aut omated message] The Basophils) system which ge nerated this result tra nsmitted reference range : <=1.0. The reference r boubacar was not used to int erpret this result as normal/abnormal . [facility] TylerYhpvosaCTFGSKZKGX0531-37-77 10:50:01 Test Item Value Reference Range Interpretation Comments Monocytes (test code = Monocytes) 9.7 2.0-12.0 [facility]2018-11-08 10:50:01 Test Item Value Reference Range Interpretation Comments eGFR (test code = eGFR) 133 [facility]2018-11-08 10:50:01 Test Item Value Reference Range Interpretation Comments Calcium Lvl (test code = Calcium Lvl) 9.4 8.5-10.5 [facility]2018-11-08 10:50:01 Test Item Value Reference Range Interpretation Comments CO2 (test code = CO2) 28 24-32 [facility]2018-11-08 10:50:01 Test Item Value Reference Range Interpretation Comments BUN (test code = BUN) 14 7-22 [facility]2018-11-08 10:50:01 Test Item Value Reference Range Interpretation Comments Glucose Lvl (test code = Glucose Lvl) 89 70-99 [facility]2018-11-08 10:50:01 Test Item Value Reference Range Interpretation Comments Chloride Lvl (test code = Chloride Lvl) 104 95-109 [facility]2018-11-08 10:50:01 Test Item Value Reference Range Interpretation Comments Potassium Lvl (test code = Potassium 4.2 3.5-5.1 Lvl) [facility]2018-11-08 10:50:01 Test Item Value Reference Range Interpretation Comments Sodium Lvl (test code = Sodium Lvl) 137 135-145 [facility]2018-11-08 10:50:01 Test Item Value Reference Range Interpretation Comments Creatinine Lvl (test code = Creatinine 0.85 0.50-1.40 Lvl) [facility]2018-11-08 10:50:01 Test Item Value Reference Range Interpretation Comments AGAP (test code = AGAP) 9.2 10.0-20.0 [facility] TylerUrwqochDYOGDZDCOZ5464-18-52 10:50:01 Test Item Value Reference Range Interpretation Comments ACT (TEG) Rapid (test code = ACT (TEG) 136 s 86-118 Rapid) [facility] TylerAcwhlhsFWKELPHCBV7787-14-15 10:50:01 Test Item Value Reference Range Interpretation Comments Split Point Rapid (test code = Split 0.6 min Point Rapid) [facility] TylerCmlgdwgNJYSEGYYSR8054-29-32 10:50:01 Test Item Value Reference Range Interpretation Comments R-time Rapid (test code = R-time 0.9 min 0.4-0.7 Rapid) [facility] TylerDvnvvzsNDRKALDVLQ3902-08-11 10:50:01 Test Item Value Reference Range Interpretation Comments K-time Rapid (test code = K-time 1.4 min 0.6-2.3 Rapid) [facility] TylerDqzttxfNERKAZYPGA3025-37-07 10:50:01 Test Item Value Reference Range Interpretation Comments Angle Rapid (test code = Angle 71 degrees 64-80 Rapid) [facility] TylerJvkrqsrRBKPPMEBQX7063-21-60 10:50:01 Test Item Value Reference Range Interpretation Comments G-value Rapid (test code = G-value 12.7 5.0-11.6 Rapid) [facility] TylerNfmstzeGKLLQWJPOV5370-78-72 10:50:01 Test Item Value Reference Range Interpretation Comments Max Amplitude Rapid (test code = Max 72 mm 52-71 Amplitude Rapid) [facility] TylerOoipqbgSWNHKYUSEA0150-50-06 10:50:01 Test Item Value Reference Range Interpretation Comments Estimated % Lysis Rapid 0.1 See_Comment [Au tomated message] The (test code = Estimated syste m which generated % Lysis Rapid) this result t ransmitted reference range : <=7.5. The reference r boubacar was not used to int erpret this result as normal/abnormal . [facility] TylerGkrwwzvIEXBOEXVKP6693-81-47 10:50:01 Test Item Value Reference Range Interpretation Comments Platelet (test code = Platelet) 367 133-450 [facility] TylerYdspdjiJECQMQHYRQ4488-45-12 10:50:01 Test Item Value Reference Range Interpretation Comments MPV (test code = MPV) 7.8 7.4-10.4 [facility] TylerBrjqfysVZTTSZBDXF4290-01-16 10:50:01 Test Item Value Reference Range Interpretation Comments MCH (test code = MCH) 27.4 pg 27.0-31.0 [facility] TylerRlncsrqLZAZPLMMUE4635-13-02 10:50:01 Test Item Value Reference Range Interpretation Comments MCV (test code = MCV) 80.7 80.0-94.0 [facility] TylerFvvcessYZWTXAKZFB4684-73-55 10:50:01 Test Item Value Reference Range Interpretation Comments MCHC (test code = MCHC) 34.0 32.0-36.0 [facility] TylerDysfwbdEYCSAKCUSN4153-91-19 10:50:01 Test Item Value Reference Range Interpretation Comments RDW (test code = RDW) 18.9 11.5-14.5 [facility] TylerJnocjamOHPUBJDNZR4121-63-67 10:50:01 Test Item Value Reference Range Interpretation Comments Hct (test code = Hct) 43.3 42.0-54.0 [facility] TylerDzgxnebHHPYMWTJEL1858-28-57 10:50:01 Test Item Value Reference Range Interpretation Comments WBC (test code = WBC) 9.3 3.7-10.4 [facility] TylerEaiabwoOIROSLOFDT5744-68-72 10:50:01 Test Item Value Reference Range Interpretation Comments Hgb (test code = Hgb) 14.7 14.0-18.0 [facility] TylerOcinryvNRXOVMNVRM5508-08-04 10:50:01 Test Item Value Reference Range Interpretation Comments RBC (test code = RBC) 5.36 4.70-6.10 [facility] TylerAuetacjDVCBLWESZH6807-73-56 10:50:01 Test Item Value Reference Range Interpretation Comments Eosinophils # (test code 0.2 See_Comment [A utomated message] The = Eosinophils #) system whic h generated this result tra nsmitted reference range : <=0.5. The reference r boubacar was not used to int erpret this result as normal/abnormal . [facility] TylerVezupfeYIJANSGYPN2482-65-23 10:50:01 Test Item Value Reference Range Interpretation Comments Basophils # (test code 0.1 See_Comment [Aut omated message] The = Basophils #) system which generated this result tra nsmitted reference range : <=0.2. The reference r boubacar was not used to int erpret this result as normal/abnormal . [facility] TylerQkssgdnAUUKHHKNRV4438-37-03 10:50:01 Test Item Value Reference Range Interpretation Comments Lymphocytes # (test code = Lymphocytes 1.8 1.0-5.5 #) [facility] TylerGxlluqhNLWPLNBAKK8058-44-31 10:50:01 Test Item Value Reference Range Interpretation Comments Monocytes # (test code 0.9 See_Comment [Aut omated message] The = Monocytes #) system which generated this result tra nsmitted reference range : <=0.8. The reference r boubacar was not used to int erpret this result as normal/abnormal . [facility] TylerPmfwynkJPURKHJDLC7599-11-59 10:50:01 Test Item Value Reference Range Interpretation Comments Neutrophils # (test code = Neutrophils 6.3 1.5-8.1 #) [facility] TylerZosrscmLNSOOAQDHI8674-22-92 10:50:01 Test Item Value Reference Range Interpretation Comments Eosinophils (test code = 2.0 See_Comment [A utomated message] The Eosinophils) system which ge nerated this result tra nsmitted reference range : <=4.0. The reference r boubacar was not used to int erpret this result as normal/abnormal . [facility] TylerMlcppraQPTJQDAHHP6157-05-74 10:50:01 Test Item Value Reference Range Interpretation Comments Segs (test code = Segs) 67.4 45.0-75.0 [facility] TylerIinrnwxOEFRBGRMAI3861-76-58 10:50:01 Test Item Value Reference Range Interpretation Comments Lymphocytes (test code = Lymphocytes) 19.9 20.0-40.0 [facility] TylerQhlcvyxXQIXLBTNRU0500-92-24 10:50:01 Test Item Value Reference Range Interpretation Comments Basophils (test code = 1.0 See_Comment [Aut omated message] The Basophils) system which ge nerated this result tra nsmitted reference range : <=1.0. The reference r boubacar was not used to int erpret this result as normal/abnormal . [facility] TylerNmoscnaYJGTSJZIOD9563-86-74 10:50:01 Test Item Value Reference Range Interpretation Comments Monocytes (test code = Monocytes) 9.7 2.0-12.0 [facility]2018-11-08 10:50:01 Test Item Value Reference Range Interpretation Comments eGFR (test code = eGFR) 133 [facility]2018-11-08 10:50:01 Test Item Value Reference Range Interpretation Comments Calcium Lvl (test code = Calcium Lvl) 9.4 8.5-10.5 [facility]2018-11-08 10:50:01 Test Item Value Reference Range Interpretation Comments CO2 (test code = CO2) 28 24-32 [facility]2018-11-08 10:50:01 Test Item Value Reference Range Interpretation Comments BUN (test code = BUN) 14 7-22 [facility]2018-11-08 10:50:01 Test Item Value Reference Range Interpretation Comments Glucose Lvl (test code = Glucose Lvl) 89 70-99 [facility]2018-11-08 10:50:01 Test Item Value Reference Range Interpretation Comments Chloride Lvl (test code = Chloride Lvl) 104 95-109 [facility]2018-11-08 10:50:01 Test Item Value Reference Range Interpretation Comments Potassium Lvl (test code = Potassium 4.2 3.5-5.1 Lvl) [facility]2018-11-08 10:50:01 Test Item Value Reference Range Interpretation Comments Sodium Lvl (test code = Sodium Lvl) 137 135-145 [facility]2018-11-08 10:50:01 Test Item Value Reference Range Interpretation Comments Creatinine Lvl (test code = Creatinine 0.85 0.50-1.40 Lvl) [facility]2018-11-08 10:50:01 Test Item Value Reference Range Interpretation Comments AGAP (test code = AGAP) 9.2 10.0-20.0 [facility] TylerKizjfmkPEFAXUPBPG5326-07-53 10:50:01 Test Item Value Reference Range Interpretation Comments ACT (TEG) Rapid (test code = ACT (TEG) 136 s 86-118 Rapid) [place]008-11-08 10:50:01 Test Item Value Reference Range Interpretation Comments Split Point Rapid (test code = Split 0.6 min Point Rapid) [facility] TylerYpvhxwxMHWQEOXQEZ8523-61-54 10:50:01 Test Item Value Reference Range Interpretation Comments R-time Rapid (test code = R-time 0.9 min 0.4-0.7 Rapid) [place] 475008-11-08 10:50:01 Test Item Value Reference Range Interpretation Comments K-time Rapid (test code = K-time 1.4 min 0.6-2.3 Rapid) [facility] TylerKilfaxpNBWDHQZVXY6025-65-28 10:50:01 Test Item Value Reference Range Interpretation Comments Angle Rapid (test code = Angle 71 degrees 64-80 Rapid) [facility] TylerFpjolpyFVUHLOSIXM1185-56-52 10:50:01 Test Item Value Reference Range Interpretation Comments G-value Rapid (test code = G-value 12.7 5.0-11.6 Rapid) [facility] TylerGevvljlZQBCTEFMXW3965-37-65 10:50:01 Test Item Value Reference Range Interpretation Comments Max Amplitude Rapid (test code = Max 72 mm 52-71 Amplitude Rapid) [facility] TylerFmquhldMOTEXFXRDO1900-91-09 10:50:01 Test Item Value Reference Range Interpretation Comments Estimated % Lysis Rapid 0.1 See_Comment [Au tomated message] The (test code = Estimated syste m which generated % Lysis Rapid) this result t ransmitted reference range : <=7.5. The reference r boubacar was not used to int erpret this result as normal/abnormal . [facility] TylerAwjjsxpDMPZENMWCC7745-40-00 10:50:01 Test Item Value Reference Range Interpretation Comments Platelet (test code = Platelet) 367 133-450 [facility] TylerKvkulqaIBVQZNTRIH2738-75-09 10:50:01 Test Item Value Reference Range Interpretation Comments MPV (test code = MPV) 7.8 7.4-10.4 [facility] TylerEoioimkMEITSLEZSK6282-85-42 10:50:01 Test Item Value Reference Range Interpretation Comments MCH (test code = MCH) 27.4 pg 27.0-31.0 [facility] TylerCvkjobkJIXKUXPDWR5407-11-60 10:50:01 Test Item Value Reference Range Interpretation Comments MCV (test code = MCV) 80.7 80.0-94.0 [facility] TylerNkhpvobWRKWDMOVDO8033-62-76 10:50:01 Test Item Value Reference Range Interpretation Comments MCHC (test code = MCHC) 34.0 32.0-36.0 [facility] TylerCsyidoiPFOFKACTKW2351-30-99 10:50:01 Test Item Value Reference Range Interpretation Comments RDW (test code = RDW) 18.9 11.5-14.5 [facility] TylerGxylhhrLHNRQLTYNR8114-12-60 10:50:01 Test Item Value Reference Range Interpretation Comments Hct (test code = Hct) 43.3 42.0-54.0 [facility] TylerQkgpwwnFDTNTPGYUG3382-61-61 10:50:01 Test Item Value Reference Range Interpretation Comments WBC (test code = WBC) 9.3 3.7-10.4 [facility] TylerHphsthdWNPDTPTMXQ7998-65-81 10:50:01 Test Item Value Reference Range Interpretation Comments Hgb (test code = Hgb) 14.7 14.0-18.0 [facility] TylerLodkheqPSPDREJFIK0980-08-56 10:50:01 Test Item Value Reference Range Interpretation Comments RBC (test code = RBC) 5.36 4.70-6.10 [facility] TylerJommbipHSLYPVLSQY0455-63-44 10:50:01 Test Item Value Reference Range Interpretation Comments Eosinophils # (test code 0.2 See_Comment [A utomated message] The = Eosinophils #) system whic h generated this result tra nsmitted reference range : <=0.5. The reference r boubacar was not used to int erpret this result as normal/abnormal . [facility] TylerEvbqeubOVOWEOIDIF0577-28-95 10:50:01 Test Item Value Reference Range Interpretation Comments Basophils # (test code 0.1 See_Comment [Aut omated message] The = Basophils #) system which generated this result tra nsmitted reference range : <=0.2. The reference r boubacar was not used to int erpret this result as normal/abnormal . [facility] TylerSlieekvCYPXOHTQXC3470-91-38 10:50:01 Test Item Value Reference Range Interpretation Comments Lymphocytes # (test code = Lymphocytes 1.8 1.0-5.5 #) [facility] TylerLiqhjbhYPTOCMGHVJ4456-44-34 10:50:01 Test Item Value Reference Range Interpretation Comments Monocytes # (test code 0.9 See_Comment [Aut omated message] The = Monocytes #) system which generated this result tra nsmitted reference range : <=0.8. The reference r boubacar was not used to int erpret this result as normal/abnormal . [facility] TylerVukwywzTXYCYTDANO3452-27-80 10:50:01 Test Item Value Reference Range Interpretation Comments Neutrophils # (test code = Neutrophils 6.3 1.5-8.1 #) [facility] TylerWekdieyXSRWUPUYMH4003-98-96 10:50:01 Test Item Value Reference Range Interpretation Comments Eosinophils (test code = 2.0 See_Comment [A utomated message] The Eosinophils) system which ge nerated this result tra nsmitted reference range : <=4.0. The reference r boubacar was not used to int erpret this result as normal/abnormal . [facility] TylerHzsgxroIOIVRMQPOV9600-92-63 10:50:01 Test Item Value Reference Range Interpretation Comments Segs (test code = Segs) 67.4 45.0-75.0 [facility] [facility] [id number] 10:50:01 Test Item Value Reference Range Interpretation Comments Lymphocytes (test code = Lymphocytes) 19.9 20.0-40.0 [facility] TylerVgfbazfUKEJLKOSIY4870-92-43 10:50:01 Test Item Value Reference Range Interpretation Comments Basophils (test code = 1.0 See_Comment [Aut omated message] The Basophils) system which ge nerated this result tra nsmitted reference range : <=1.0. The reference r boubacar was not used to int erpret this result as normal/abnormal . [facility] TylerJblgozrMBWAMTWGXG0372-91-05 10:50:01 Test Item Value Reference Range Interpretation Comments Monocytes (test code = Monocytes) 9.7 2.0-12.0 [facility]2018-11-08 10:50:01 Test Item Value Reference Range Interpretation Comments eGFR (test code = eGFR) 133 [facility]2018-11-08 10:50:01 Test Item Value Reference Range Interpretation Comments Calcium Lvl (test code = Calcium Lvl) 9.4 8.5-10.5 [facility]2018-11-08 10:50:01 Test Item Value Reference Range Interpretation Comments CO2 (test code = CO2) 28 24-32 [facility]2018-11-08 10:50:01 Test Item Value Reference Range Interpretation Comments BUN (test code = BUN) 14 7-22 [facility]2018-11-08 10:50:01 Test Item Value Reference Range Interpretation Comments Glucose Lvl (test code = Glucose Lvl) 89 70-99 [facility]2018-11-08 10:50:01 Test Item Value Reference Range Interpretation Comments Chloride Lvl (test code = Chloride Lvl) 104 95-109 [facility]2018-11-08 10:50:01 Test Item Value Reference Range Interpretation Comments Potassium Lvl (test code = Potassium 4.2 3.5-5.1 Lvl) [facility]2018-11-08 10:50:01 Test Item Value Reference Range Interpretation Comments Sodium Lvl (test code = Sodium Lvl) 137 135-145 [facility]2018-11-08 10:50:01 Test Item Value Reference Range Interpretation Comments Creatinine Lvl (test code = Creatinine 0.85 0.50-1.40 Lvl) [facility]2018-11-08 10:50:01 Test Item Value Reference Range Interpretation Comments AGAP (test code = AGAP) 9.2 10.0-20.0 [facility] TylerTvtjzspFSOLSFTCLO7069-30-63 10:50:01 Test Item Value Reference Range Interpretation Comments ACT (TEG) Rapid (test code = ACT (TEG) 136 s 86-118 Rapid) [facility] TylerMyanlogMYZJTZWJKY4417-40-30 10:50:01 Test Item Value Reference Range Interpretation Comments Split Point Rapid (test code = Split 0.6 min Point Rapid) [facility] TylerEwtcpxkIMIVPBUFFU0205-16-92 10:50:01 Test Item Value Reference Range Interpretation Comments R-time Rapid (test code = R-time 0.9 min 0.4-0.7 Rapid) [facility] TylerAuunwxdOCOMRXRJWF6871-99-06 10:50:01 Test Item Value Reference Range Interpretation Comments K-time Rapid (test code = K-time 1.4 min 0.6-2.3 Rapid) [facility] TylerFyrkinzTNSIXOIOFX5400-40-45 10:50:01 Test Item Value Reference Range Interpretation Comments Angle Rapid (test code = Angle 71 degrees 64-80 Rapid) [facility] TylerCrokoylLMQPGLQQBU7348-74-95 10:50:01 Test Item Value Reference Range Interpretation Comments G-value Rapid (test code = G-value 12.7 5.0-11.6 Rapid) [facility] TylerGewzodcYIZGIWZMZD4646-23-14 10:50:01 Test Item Value Reference Range Interpretation Comments Max Amplitude Rapid (test code = Max 72 mm 52-71 Amplitude Rapid) [facility] TylerEzkjborXTLBBZCISM4855-03-63 10:50:01 Test Item Value Reference Range Interpretation Comments Estimated % Lysis Rapid 0.1 See_Comment [Au tomated message] The (test code = Estimated syste m which generated % Lysis Rapid) this result t ransmitted reference range : <=7.5. The reference r boubacar was not used to int erpret this result as normal/abnormal . [facility] TylerIwbdcurEFUOHAIVUB0074-52-98 10:50:01 Test Item Value Reference Range Interpretation Comments Platelet (test code = Platelet) 367 133-450 [facility] TylerWgozrnxELHRHNQYRV6593-27-75 10:50:01 Test Item Value Reference Range Interpretation Comments MPV (test code = MPV) 7.8 7.4-10.4 [facility] TylerKavdtvoXTCNXGXRWQ4329-33-17 10:50:01 Test Item Value Reference Range Interpretation Comments MCH (test code = MCH) 27.4 pg 27.0-31.0 [facility] TylerCacunabGPUWFIIRID5474-79-79 10:50:01 Test Item Value Reference Range Interpretation Comments MCV (test code = MCV) 80.7 80.0-94.0 [facility] TylerZlwmapuSJWWLPFGLS5243-32-65 10:50:01 Test Item Value Reference Range Interpretation Comments MCHC (test code = MCHC) 34.0 32.0-36.0 [facility] TylerUupgbnlISHZNMDXBD9884-24-47 10:50:01 Test Item Value Reference Range Interpretation Comments RDW (test code = RDW) 18.9 11.5-14.5 [facility] TylerLzwrcsxXCYTOKWSZR6018-86-68 10:50:01 Test Item Value Reference Range Interpretation Comments Hct (test code = Hct) 43.3 42.0-54.0 [facility] TylerUkyvxwnRTDWMPRRNU5759-11-64 10:50:01 Test Item Value Reference Range Interpretation Comments WBC (test code = WBC) 9.3 3.7-10.4 [facility] TylerCvuwmtiBWBNFWLHSZ4185-91-30 10:50:01 Test Item Value Reference Range Interpretation Comments Hgb (test code = Hgb) 14.7 14.0-18.0 [facility] TylerMxpseepNHPDNXNINV3644-69-00 10:50:01 Test Item Value Reference Range Interpretation Comments RBC (test code = RBC) 5.36 4.70-6.10 [facility] TylerKijcwxyBUQPRZNQCJ0081-57-26 10:50:01 Test Item Value Reference Range Interpretation Comments Eosinophils # (test code 0.2 See_Comment [A utomated message] The = Eosinophils #) system whic h generated this result tra nsmitted reference range : <=0.5. The reference r boubacar was not used to int erpret this result as normal/abnormal . [facility] TylerLfebvtkIAJHKDKUED9760-63-64 10:50:01 Test Item Value Reference Range Interpretation Comments Basophils # (test code 0.1 See_Comment [Aut omated message] The = Basophils #) system which generated this result tra nsmitted reference range : <=0.2. The reference r boubacar was not used to int erpret this result as normal/abnormal . [facility] TylerZwcbyjkDBNXQNYBWQ6500-57-98 10:50:01 Test Item Value Reference Range Interpretation Comments Lymphocytes # (test code = Lymphocytes 1.8 1.0-5.5 #) [facility] TylerIqmweqbQMBVBLODOJ7410-24-64 10:50:01 Test Item Value Reference Range Interpretation Comments Monocytes # (test code 0.9 See_Comment [Aut omated message] The = Monocytes #) system which generated this result tra nsmitted reference range : <=0.8. The reference r boubacar was not used to int erpret this result as normal/abnormal . [facility] TylerJyievpuSXPUBXXQKV0569-83-04 10:50:01 Test Item Value Reference Range Interpretation Comments Neutrophils # (test code = Neutrophils 6.3 1.5-8.1 #) [facility] TylerSyyolrfXLOCZPTCWF3022-58-15 10:50:01 Test Item Value Reference Range Interpretation Comments Eosinophils (test code = 2.0 See_Comment [A utomated message] The Eosinophils) system which ge nerated this result tra nsmitted reference range : <=4.0. The reference r boubacar was not used to int erpret this result as normal/abnormal . [facility] TylerQmmhdtaGDZXYYZDFL5141-54-67 10:50:01 Test Item Value Reference Range Interpretation Comments Segs (test code = Segs) 67.4 45.0-75.0 [facility] TylerWvgmhswGLRVCICFFW2175-54-86 10:50:01 Test Item Value Reference Range Interpretation Comments Lymphocytes (test code = Lymphocytes) 19.9 20.0-40.0 [facility] TylerWccvxdzUUFMXMFXTA5255-15-82 10:50:01 Test Item Value Reference Range Interpretation Comments Basophils (test code = 1.0 See_Comment [Aut omated message] The Basophils) system which ge nerated this result tra nsmitted reference range : <=1.0. The reference r boubacar was not used to int erpret this result as normal/abnormal . [facility] TylerXcepatnABRKSAGWNF8273-51-22 10:50:01 Test Item Value Reference Range Interpretation Comments Monocytes (test code = Monocytes) 9.7 2.0-12.0 [facility]2018-11-08 10:50:01 Test Item Value Reference Range Interpretation Comments eGFR (test code = eGFR) 133 [facility]2018-11-08 10:50:01 Test Item Value Reference Range Interpretation Comments Calcium Lvl (test code = Calcium Lvl) 9.4 8.5-10.5 [facility]2018-11-08 10:50:01 Test Item Value Reference Range Interpretation Comments CO2 (test code = CO2) 28 24-32 [facility]2018-11-08 10:50:01 Test Item Value Reference Range Interpretation Comments BUN (test code = BUN) 14 7-22 [facility]2018-11-08 10:50:01 Test Item Value Reference Range Interpretation Comments Glucose Lvl (test code = Glucose Lvl) 89 70-99 [facility]2018-11-08 10:50:01 Test Item Value Reference Range Interpretation Comments Chloride Lvl (test code = Chloride Lvl) 104 95-109 [facility]2018-11-08 10:50:01 Test Item Value Reference Range Interpretation Comments Potassium Lvl (test code = Potassium 4.2 3.5-5.1 Lvl) [facility]2018-11-08 10:50:01 Test Item Value Reference Range Interpretation Comments Sodium Lvl (test code = Sodium Lvl) 137 135-145 [facility]2018-11-08 10:50:01 Test Item Value Reference Range Interpretation Comments Creatinine Lvl (test code = Creatinine 0.85 0.50-1.40 Lvl) [facility]2018-11-08 10:50:01 Test Item Value Reference Range Interpretation Comments AGAP (test code = AGAP) 9.2 10.0-20.0 [facility] TylerTjztykrAIXWGMDDAN2004-51-67 10:50:01 Test Item Value Reference Range Interpretation Comments ACT (TEG) Rapid (test code = ACT (TEG) 136 s 86-118 Rapid) [facility] TylerArxxvgnCCIBUQSELN1898-77-28 10:50:01 Test Item Value Reference Range Interpretation Comments Split Point Rapid (test code = Split 0.6 min Point Rapid) [facility] TylerGykhnfvPWPDFPTPFD8711-04-39 10:50:01 Test Item Value Reference Range Interpretation Comments R-time Rapid (test code = R-time 0.9 min 0.4-0.7 Rapid) [facility] TylerLcpdaouTWDORHKCXQ0762-22-54 10:50:01 Test Item Value Reference Range Interpretation Comments K-time Rapid (test code = K-time 1.4 min 0.6-2.3 Rapid) [facility] TylerYklcigcQNXGLAXOBO1351-59-27 10:50:01 Test Item Value Reference Range Interpretation Comments Angle Rapid (test code = Angle 71 degrees 64-80 Rapid) [facility] TylerJkricksQCORDPVYRV2187-84-80 10:50:01 Test Item Value Reference Range Interpretation Comments G-value Rapid (test code = G-value 12.7 5.0-11.6 Rapid) [facility] TylerWjtvcsvBOKHTJGMXV1361-09-60 10:50:01 Test Item Value Reference Range Interpretation Comments Max Amplitude Rapid (test code = Max 72 mm 52-71 Amplitude Rapid) [facility] TylerAftwpwsJBMTOMLOTI8963-01-69 10:50:01 Test Item Value Reference Range Interpretation Comments Estimated % Lysis Rapid 0.1 See_Comment [Au tomated message] The (test code = Estimated syste m which generated % Lysis Rapid) this result t ransmitted reference range : <=7.5. The reference r boubacar was not used to int erpret this result as normal/abnormal . [facility] TylerDerpmqlNNSGEOGTYC1429-25-32 10:50:01 Test Item Value Reference Range Interpretation Comments Platelet (test code = Platelet) 367 133-450 [facility] TylerFvbossnCBGSGKCDPP6428-99-31 10:50:01 Test Item Value Reference Range Interpretation Comments MPV (test code = MPV) 7.8 7.4-10.4 [facility] TylerBagiagyGOTDRPCHCV7128-57-95 10:50:01 Test Item Value Reference Range Interpretation Comments MCH (test code = MCH) 27.4 pg 27.0-31.0 [facility] TylerWkbijruRFKJEOAGMV7186-86-46 10:50:01 Test Item Value Reference Range Interpretation Comments MCV (test code = MCV) 80.7 80.0-94.0 [facility] TylerKdihxviOKYRNAZIQB6207-17-49 10:50:01 Test Item Value Reference Range Interpretation Comments MCHC (test code = MCHC) 34.0 32.0-36.0 [facility] TylerLhweeliRGLJKIWFSH6947-53-96 10:50:01 Test Item Value Reference Range Interpretation Comments RDW (test code = RDW) 18.9 11.5-14.5 [facility] TylerRanxufrSVWVOYGDNO4689-68-80 10:50:01 Test Item Value Reference Range Interpretation Comments Hct (test code = Hct) 43.3 42.0-54.0 [facility] TylerObcfucyHEWCRPNWMR6734-38-12 10:50:01 Test Item Value Reference Range Interpretation Comments WBC (test code = WBC) 9.3 3.7-10.4 [facility] TylerUnrpbktVPHHIXTLOJ0415-82-58 10:50:01 Test Item Value Reference Range Interpretation Comments Hgb (test code = Hgb) 14.7 14.0-18.0 [facility] TylerThehpokQTEVBZFHGA7397-39-88 10:50:01 Test Item Value Reference Range Interpretation Comments RBC (test code = RBC) 5.36 4.70-6.10 [facility] TylerLnfaulqZIPFQQEDEG7478-38-56 10:50:01 Test Item Value Reference Range Interpretation Comments Eosinophils # (test code 0.2 See_Comment [A utomated message] The = Eosinophils #) system whic h generated this result tra nsmitted reference range : <=0.5. The reference r boubacar was not used to int erpret this result as normal/abnormal . [facility] TylerDiykxopCYMYLCUVBR1311-15-04 10:50:01 Test Item Value Reference Range Interpretation Comments Basophils # (test code 0.1 See_Comment [Aut omated message] The = Basophils #) system which generated this result tra nsmitted reference range : <=0.2. The reference r boubacar was not used to int erpret this result as normal/abnormal . [facility] TylerYjtxrynUEYERLBVZL5057-09-74 10:50:01 Test Item Value Reference Range Interpretation Comments Lymphocytes # (test code = Lymphocytes 1.8 1.0-5.5 #) [facility] TylerPoqvysnKTOHYHGWAP6680-45-17 10:50:01 Test Item Value Reference Range Interpretation Comments Monocytes # (test code 0.9 See_Comment [Aut omated message] The = Monocytes #) system which generated this result tra nsmitted reference range : <=0.8. The reference r boubacar was not used to int erpret this result as normal/abnormal . [facility] TylerKpfpkjsLYIFXLIMPT8961-96-88 10:50:01 Test Item Value Reference Range Interpretation Comments Neutrophils # (test code = Neutrophils 6.3 1.5-8.1 #) [facility] TylerZatjrvpWJYUIHWTNV5828-92-46 10:50:01 Test Item Value Reference Range Interpretation Comments Eosinophils (test code = 2.0 See_Comment [A utomated message] The Eosinophils) system which ge nerated this result tra nsmitted reference range : <=4.0. The reference r boubacar was not used to int erpret this result as normal/abnormal . [facility] TylerZvnpdpxCFAFJBICEG6228-84-55 10:50:01 Test Item Value Reference Range Interpretation Comments Segs (test code = Segs) 67.4 45.0-75.0 [facility] TylerXwxfpejBNIOARHDHC8733-11-29 10:50:01 Test Item Value Reference Range Interpretation Comments Lymphocytes (test code = Lymphocytes) 19.9 20.0-40.0 [facility] TylerNxofjstJDKYTGEYNJ9650-86-17 10:50:01 Test Item Value Reference Range Interpretation Comments Basophils (test code = 1.0 See_Comment [Aut omated message] The Basophils) system which ge nerated this result tra nsmitted reference range : <=1.0. The reference r boubacar was not used to int erpret this result as normal/abnormal . [facility] TylerCkqxlzaETJYTMSELO5324-21-02 10:50:01 Test Item Value Reference Range Interpretation Comments Monocytes (test code = Monocytes) 9.7 2.0-12.0 [facility]2018-05-08 05:42:00 Test Item Value Reference Range Interpretation Comments B/C Ratio (test code = B/C Ratio) 17 1 6-25 [facility]2018-05-08 05:42:00 Test Item Value Reference Range Interpretation Comments Globulin (test code = Globulin) 4.3 2.7-4.2 [facility]2018-05-08 05:42:00 Test Item Value Reference Range Interpretation Comments A/G Ratio (test code = A/G Ratio) 0.7 1 0.7-1.6 [facility]2018-05-08 05:42:00 Test Item Value Reference Range Interpretation Comments AGAP (test code = AGAP) 14.4 10.0-20.0 [facility]2018-05-08 05:42:00 Test Item Value Reference Range Interpretation Comments eGFR (test code = eGFR) 113 [facility]2018-05-08 05:42:00 Test Item Value Reference Range Interpretation Comments Alk Phos (test code = Alk Phos) 76 39-136 [facility]2018-05-08 05:42:00 Test Item Value Reference Range Interpretation Comments ALT (test code = ALT) 35 See_Comment [Auto mated message] The system which ge nerated this result transmit lester reference range : <=65. The reference range was not used to interpr et this result as dany l/abnormal. [facility]2018-05-08 05:42:00 Test Item Value Reference Range Interpretation Comments Albumin Lvl (test code = Albumin Lvl) 2.8 3.5-5.0 [facility]2018-05-08 05:42:00 Test Item Value Reference Range Interpretation Comments Total Protein (test code = Total 7.1 6.4-8.4 Protein) [facility]2018-05-08 05:42:00 Test Item Value Reference Range Interpretation Comments Calcium Lvl (test code = Calcium Lvl) 8.7 8.5-10.5 [facility]2018-05-08 05:42:00 Test Item Value Reference Range Interpretation Comments AST (test code = AST) 18 See_Comment [Auto mated message] The system which ge nerated this result transmit lester reference range : <=37. The reference range was not used to interpr et this result as dany l/abnormal. [facility]2018-05-08 05:42:00 Test Item Value Reference Range Interpretation Comments Bili Total (test code = Bili Total) 0.3 0.2-1.3 [facility]2018-05-08 05:42:00 Test Item Value Reference Range Interpretation Comments Potassium Lvl (test code = Potassium 4.4 3.5-5.1 Lvl) [facility]2018-05-08 05:42:00 Test Item Value Reference Range Interpretation Comments Chloride Lvl (test code = Chloride Lvl) 109 95-109 [facility]2018-05-08 05:42:00 Test Item Value Reference Range Interpretation Comments CO2 (test code = CO2) 23 24-32 [facility]2018-05-08 05:42:00 Test Item Value Reference Range Interpretation Comments Glucose Lvl (test code = Glucose Lvl) 114 70-99 [facility]2018-05-08 05:42:00 Test Item Value Reference Range Interpretation Comments Creatinine Lvl (test code = Creatinine 1.01 0.50-1.40 Lvl) [facility]2018-05-08 05:42:00 Test Item Value Reference Range Interpretation Comments BUN (test code = BUN) 17 7-22 [facility]2018-05-08 05:42:00 Test Item Value Reference Range Interpretation Comments Sodium Lvl (test code = Sodium Lvl) 142 135-145 [facility] TylerSxfwyfoQECUBFITSA1675-96-90 05:42:00 Test Item Value Reference Range Interpretation Comments Basophils (test code = 0.6 See_Comment [Aut omated message] The Basophils) system which ge nerated this result tra nsmitted reference range : <=1.0. The reference r boubacar was not used to int erpret this result as normal/abnormal . [facility] TylerGtvhmboNCYFPOZAZX2751-74-71 05:42:00 Test Item Value Reference Range Interpretation Comments Segs-Bands # (test code = Segs-Bands #) 4.8 1.5-8.1 [facility] TylerDlcycpjESJHOHBMWY6208-23-67 05:42:00 Test Item Value Reference Range Interpretation Comments Monocytes # (test code 0.7 See_Comment [Aut omated message] The = Monocytes #) system which generated this result tra nsmitted reference range : <=0.8. The reference r boubacar was not used to int erpret this result as normal/abnormal . [facility] TylerVrqnbptHJNBZVYJXF8212-58-14 05:42:00 Test Item Value Reference Range Interpretation Comments Lymphocytes # (test code = Lymphocytes 1.9 1.0-5.5 #) [facility] TylerRymfullMTWNEXHBJM3211-94-96 05:42:00 Test Item Value Reference Range Interpretation Comments Monocytes (test code = Monocytes) 9.4 2.0-12.0 [facility] TylerBeltohdCVPZSNVRQN3965-47-65 05:42:00 Test Item Value Reference Range Interpretation Comments Eosinophils # (test code 0.2 See_Comment [A utomated message] The = Eosinophils #) system whic h generated this result tra nsmitted reference range : <=0.5. The reference r boubacar was not used to int erpret this result as normal/abnormal . [facility] TylerZmbjgywXDSKUCASVJ7069-86-29 05:42:00 Test Item Value Reference Range Interpretation Comments Eosinophils (test code = 2.9 See_Comment [A utomated message] The Eosinophils) system which ge nerated this result tra nsmitted reference range : <=4.0. The reference r boubacar was not used to int erpret this result as normal/abnormal . [facility] TylerIzzcobyGKYHISOKZT3190-52-11 05:42:00 Test Item Value Reference Range Interpretation Comments Segs (test code = Segs) 62.2 45.0-75.0 [facility] TylerByvdwazNRSBEHENZU8901-02-75 05:42:00 Test Item Value Reference Range Interpretation Comments Lymphocytes (test code = Lymphocytes) 24.9 20.0-40.0 [facility] TylerHqpsoryGFGGLEYACH8165-45-81 05:42:00 Test Item Value Reference Range Interpretation Comments MCH (test code = MCH) 27.5 pg 27.0-31.0 [facility] TylerIbosrggEOPCLHIVBP1699-70-01 05:42:00 Test Item Value Reference Range Interpretation Comments MCV (test code = MCV) 85.3 80.0-94.0 [facility] TylerIfntosfYZQABVQFPP6229-38-86 05:42:00 Test Item Value Reference Range Interpretation Comments Hct (test code = Hct) 43.9 42.0-54.0 [facility] TylerCgwgnkrUHXSDXSLJH0516-48-33 05:42:00 Test Item Value Reference Range Interpretation Comments Hgb (test code = Hgb) 14.2 14.0-18.0 [facility] TylerSvqonwbTDVJXVAJFO9817-96-20 05:42:00 Test Item Value Reference Range Interpretation Comments WBC (test code = WBC) 7.7 3.7-10.4 [facility] TylerJnzbioiRVVHFRCQZB7351-94-78 05:42:00 Test Item Value Reference Range Interpretation Comments RBC (test code = RBC) 5.15 4.70-6.10 [facility] TylerEsmamqnLXULKWGIUF3053-37-15 05:42:00 Test Item Value Reference Range Interpretation Comments MPV (test code = MPV) 8.4 7.4-10.4 [facility] TylerCrkyuafNRXTETTYHV7740-92-10 05:42:00 Test Item Value Reference Range Interpretation Comments MCHC (test code = MCHC) 32.3 32.0-36.0 [facility] TylerFxkrwrwESTWNABSWE9946-19-05 05:42:00 Test Item Value Reference Range Interpretation Comments RDW (test code = RDW) 17.3 11.5-14.5 [facility] TylerHcmnafiAPRLIUMNLL3520-94-16 05:42:00 Test Item Value Reference Range Interpretation Comments Platelet (test code = Platelet) 317 120-450 [facility] [id number] 05:42:00 Test Item Value Reference Range Interpretation Comments B/C Ratio (test code = B/C Ratio) 17 1 6-25 [facility] [id number] 05:42:00 Test Item Value Reference Range Interpretation Comments Globulin (test code = Globulin) 4.3 2.7-4.2 [facility]2018-05-08 05:42:00 Test Item Value Reference Range Interpretation Comments A/G Ratio (test code = A/G Ratio) 0.7 1 0.7-1.6 [place] [id number] 05:42:00 Test Item Value Reference Range Interpretation Comments AGAP (test code = AGAP) 14.4 10.0-20.0 [facility]2018-05-08 05:42:00 Test Item Value Reference Range Interpretation Comments eGFR (test code = eGFR) 113 [facility]2018-05-08 05:42:00 Test Item Value Reference Range Interpretation Comments Alk Phos (test code = Alk Phos) 76 39-136 [facility]2018-05-08 05:42:00 Test Item Value Reference Range Interpretation Comments ALT (test code = ALT) 35 See_Comment [Auto mated message] The system which ge nerated this result transmit lester reference range : <=65. The reference range was not used to interpr et this result as dany l/abnormal. [facility]2018-05-08 05:42:00 Test Item Value Reference Range Interpretation Comments Albumin Lvl (test code = Albumin Lvl) 2.8 3.5-5.0 [facility]2018-05-08 05:42:00 Test Item Value Reference Range Interpretation Comments Total Protein (test code = Total 7.1 6.4-8.4 Protein) [facility]2018-05-08 05:42:00 Test Item Value Reference Range Interpretation Comments Calcium Lvl (test code = Calcium Lvl) 8.7 8.5-10.5 [facility]2018-05-08 05:42:00 Test Item Value Reference Range Interpretation Comments AST (test code = AST) 18 See_Comment [Auto mated message] The system which ge nerated this result transmit lester reference range : <=37. The reference range was not used to interpr et this result as dany l/abnormal. [facility]2018-05-08 05:42:00 Test Item Value Reference Range Interpretation Comments Bili Total (test code = Bili Total) 0.3 0.2-1.3 [facility]2018-05-08 05:42:00 Test Item Value Reference Range Interpretation Comments Potassium Lvl (test code = Potassium 4.4 3.5-5.1 Lvl) [facility]2018-05-08 05:42:00 Test Item Value Reference Range Interpretation Comments Chloride Lvl (test code = Chloride Lvl) 109 95-109 [facility]2018-05-08 05:42:00 Test Item Value Reference Range Interpretation Comments CO2 (test code = CO2) 23 24-32 [facility]2018-05-08 05:42:00 Test Item Value Reference Range Interpretation Comments Glucose Lvl (test code = Glucose Lvl) 114 70-99 [facility]2018-05-08 05:42:00 Test Item Value Reference Range Interpretation Comments Creatinine Lvl (test code = Creatinine 1.01 0.50-1.40 Lvl) [facility]2018-05-08 05:42:00 Test Item Value Reference Range Interpretation Comments BUN (test code = BUN) 17 7-22 [facility]2018-05-08 05:42:00 Test Item Value Reference Range Interpretation Comments Sodium Lvl (test code = Sodium Lvl) 142 135-145 [facility] TylerRdajdjuNBTAOHVLNX9282-05-72 05:42:00 Test Item Value Reference Range Interpretation Comments Basophils (test code = 0.6 See_Comment [Aut omated message] The Basophils) system which ge nerated this result tra nsmitted reference range : <=1.0. The reference r boubacar was not used to int erpret this result as normal/abnormal . [facility] TylerDbxpolvCTUMKDOBAP5355-03-84 05:42:00 Test Item Value Reference Range Interpretation Comments Segs-Bands # (test code = Segs-Bands #) 4.8 1.5-8.1 [facility] TylerXsozyiyQMJNPUHHKT0357-68-06 05:42:00 Test Item Value Reference Range Interpretation Comments Monocytes # (test code 0.7 See_Comment [Aut omated message] The = Monocytes #) system which generated this result tra nsmitted reference range : <=0.8. The reference r boubacar was not used to int erpret this result as normal/abnormal . [facility] TylerAsblpkoMEGYGJHSND6188-98-60 05:42:00 Test Item Value Reference Range Interpretation Comments Lymphocytes # (test code = Lymphocytes 1.9 1.0-5.5 #) [facility] TylerEilpcizLHGUXIUEDK9310-77-57 05:42:00 Test Item Value Reference Range Interpretation Comments Monocytes (test code = Monocytes) 9.4 2.0-12.0 [facility] TylerQuetgpmOWCEDAQMPE3645-72-02 05:42:00 Test Item Value Reference Range Interpretation Comments Eosinophils # (test code 0.2 See_Comment [A utomated message] The = Eosinophils #) system whic h generated this result tra nsmitted reference range : <=0.5. The reference r boubacar was not used to int erpret this result as normal/abnormal . [facility] TylerOmeyuxfLTINXDQSTQ5527-59-26 05:42:00 Test Item Value Reference Range Interpretation Comments Eosinophils (test code = 2.9 See_Comment [A utomated message] The Eosinophils) system which ge nerated this result tra nsmitted reference range : <=4.0. The reference r boubacar was not used to int erpret this result as normal/abnormal . [facility] TylerTprrtbmFHPBBETGZF0679-95-23 05:42:00 Test Item Value Reference Range Interpretation Comments Segs (test code = Segs) 62.2 45.0-75.0 [facility] TylerEmsaardNBNXIGIWLY0826-11-49 05:42:00 Test Item Value Reference Range Interpretation Comments Lymphocytes (test code = Lymphocytes) 24.9 20.0-40.0 [facility] TylerRdqvobyNJBUMXCCNC0762-25-22 05:42:00 Test Item Value Reference Range Interpretation Comments MCH (test code = MCH) 27.5 pg 27.0-31.0 [facility] TylerCymbcwiDIVCIJDRAA3875-54-83 05:42:00 Test Item Value Reference Range Interpretation Comments MCV (test code = MCV) 85.3 80.0-94.0 [facility] TylerGvwxzvlVAVXNFUCID0121-27-29 05:42:00 Test Item Value Reference Range Interpretation Comments Hct (test code = Hct) 43.9 42.0-54.0 [facility] TylerKrjlpnpCRAXVCGJQF3857-23-06 05:42:00 Test Item Value Reference Range Interpretation Comments Hgb (test code = Hgb) 14.2 14.0-18.0 [facility] TylerWhgcwpiBMHPACZUQP4874-66-06 05:42:00 Test Item Value Reference Range Interpretation Comments WBC (test code = WBC) 7.7 3.7-10.4 [facility] TylerFbjoxvoQFORQDXOVX1694-73-44 05:42:00 Test Item Value Reference Range Interpretation Comments RBC (test code = RBC) 5.15 4.70-6.10 [facility] TylerWweeyecDRPXUPHJIX8101-59-73 05:42:00 Test Item Value Reference Range Interpretation Comments MPV (test code = MPV) 8.4 7.4-10.4 [facility] TylerZskeywzXWIFSKEDOT9454-12-84 05:42:00 Test Item Value Reference Range Interpretation Comments MCHC (test code = MCHC) 32.3 32.0-36.0 [facility] TylerMutyaiuEFVVMKUJHF3864-05-62 05:42:00 Test Item Value Reference Range Interpretation Comments RDW (test code = RDW) 17.3 11.5-14.5 [facility] TylerBnhlnfnVSPPINDARL1287-53-72 05:42:00 Test Item Value Reference Range Interpretation Comments Platelet (test code = Platelet) 317 133-450 [facility]2018-05-08 05:42:00 Test Item Value Reference Range Interpretation Comments B/C Ratio (test code = B/C Ratio) 17 1 6-25 [facility]2018-05-08 05:42:00 Test Item Value Reference Range Interpretation Comments Globulin (test code = Globulin) 4.3 2.7-4.2 [facility]2018-05-08 05:42:00 Test Item Value Reference Range Interpretation Comments A/G Ratio (test code = A/G Ratio) 0.7 1 0.7-1.6 [facility]2018-05-08 05:42:00 Test Item Value Reference Range Interpretation Comments AGAP (test code = AGAP) 14.4 10.0-20.0 [facility]2018-05-08 05:42:00 Test Item Value Reference Range Interpretation Comments eGFR (test code = eGFR) 113 [facility]2018-05-08 05:42:00 Test Item Value Reference Range Interpretation Comments Alk Phos (test code = Alk Phos) 76 39-136 [facility]2018-05-08 05:42:00 Test Item Value Reference Range Interpretation Comments ALT (test code = ALT) 35 See_Comment [Auto mated message] The system which ge nerated this result transmit lester reference range : <=65. The reference range was not used to interpr et this result as dany l/abnormal. [facility]2018-05-08 05:42:00 Test Item Value Reference Range Interpretation Comments Albumin Lvl (test code = Albumin Lvl) 2.8 3.5-5.0 [facility]2018-05-08 05:42:00 Test Item Value Reference Range Interpretation Comments Total Protein (test code = Total 7.1 6.4-8.4 Protein) [facility]2018-05-08 05:42:00 Test Item Value Reference Range Interpretation Comments Calcium Lvl (test code = Calcium Lvl) 8.7 8.5-10.5 [facility]2018-05-08 05:42:00 Test Item Value Reference Range Interpretation Comments AST (test code = AST) 18 See_Comment [Auto mated message] The system which ge nerated this result transmit lester reference range : <=37. The reference range was not used to interpr et this result as dany l/abnormal. [facility]2018-05-08 05:42:00 Test Item Value Reference Range Interpretation Comments Bili Total (test code = Bili Total) 0.3 0.2-1.3 [facility]2018-05-08 05:42:00 Test Item Value Reference Range Interpretation Comments Potassium Lvl (test code = Potassium 4.4 3.5-5.1 Lvl) [facility]2018-05-08 05:42:00 Test Item Value Reference Range Interpretation Comments Chloride Lvl (test code = Chloride Lvl) 109 95-109 [facility]2018-05-08 05:42:00 Test Item Value Reference Range Interpretation Comments CO2 (test code = CO2) 23 24-32 [facility]2018-05-08 05:42:00 Test Item Value Reference Range Interpretation Comments Glucose Lvl (test code = Glucose Lvl) 114 70-99 [facility]2018-05-08 05:42:00 Test Item Value Reference Range Interpretation Comments Creatinine Lvl (test code = Creatinine 1.01 0.50-1.40 Lvl) [facility]2018-05-08 05:42:00 Test Item Value Reference Range Interpretation Comments BUN (test code = BUN) 17 7-22 [facility]2018-05-08 05:42:00 Test Item Value Reference Range Interpretation Comments Sodium Lvl (test code = Sodium Lvl) 142 135-145 [facility] TylerFirhsxoLSQIXVJVRJ3113-81-30 05:42:00 Test Item Value Reference Range Interpretation Comments Basophils (test code = 0.6 See_Comment [Aut omated message] The Basophils) system which ge nerated this result tra nsmitted reference range : <=1.0. The reference r boubacar was not used to int erpret this result as normal/abnormal . [facility] TylerFqvdbejPKSLAVCSVC2097-14-77 05:42:00 Test Item Value Reference Range Interpretation Comments Segs-Bands # (test code = Segs-Bands #) 4.8 1.5-8.1 [facility] TylerWjrgociCADYONREBZ7577-93-84 05:42:00 Test Item Value Reference Range Interpretation Comments Monocytes # (test code 0.7 See_Comment [Aut omated message] The = Monocytes #) system which generated this result tra nsmitted reference range : <=0.8. The reference r boubacar was not used to int erpret this result as normal/abnormal . [facility] TylerChpjpenTZGFWCYCBQ9218-28-26 05:42:00 Test Item Value Reference Range Interpretation Comments Lymphocytes # (test code = Lymphocytes 1.9 1.0-5.5 #) [facility] TylerIpvklwgJOKKGFXUKZ6269-59-33 05:42:00 Test Item Value Reference Range Interpretation Comments Monocytes (test code = Monocytes) 9.4 2.0-12.0 [facility] TylerTwzkqrmZNLRHPUMSN4938-18-02 05:42:00 Test Item Value Reference Range Interpretation Comments Eosinophils # (test code 0.2 See_Comment [A utomated message] The = Eosinophils #) system whic h generated this result tra nsmitted reference range : <=0.5. The reference r boubacar was not used to int erpret this result as normal/abnormal . [facility] TylerBedotqhDIHPIEMXUF6387-24-38 05:42:00 Test Item Value Reference Range Interpretation Comments Eosinophils (test code = 2.9 See_Comment [A utomated message] The Eosinophils) system which ge nerated this result tra nsmitted reference range : <=4.0. The reference r boubacar was not used to int erpret this result as normal/abnormal . [facility]up[facility]obXOAVHCTFSN9027[facility] 05:42:00 Test Item Value Reference Range Interpretation Comments Segs (test code = Segs) 62.2 45.0-75.0 [facility] CampusOoyxdggOLAVXPGNJD7238-07-12 05:42:00 Test Item Value Reference Range Interpretation Comments Lymphocytes (test code = Lymphocytes) 24.9 20.0-40.0 [facility] CampusMsunxmdRMSMEKJASO5075-12-49 05:42:00 Test Item Value Reference Range Interpretation Comments MCH (test code = MCH) 27.5 pg 27.0-31.0 [facility] CampusIqhteepQVFHBTPPUI7480-75-13 05:42:00 Test Item Value Reference Range Interpretation Comments MCV (test code = MCV) 85.3 80.0-94.0 [facility] CampusDqfiqvtSNPZSHJRCF4832-98-04 05:42:00 Test Item Value Reference Range Interpretation Comments Hct (test code = Hct) 43.9 42.0-54.0 [facility] HospitalBnzjbewOKIESSCECR8352-71-10 05:42:00 Test Item Value Reference Range Interpretation Comments Hgb (test code = Hgb) 14.2 14.0-18.0 [facility] CampusTyaqgzbFKDVEBAYMT5546-45-41 05:42:00 Test Item Value Reference Range Interpretation Comments WBC (test code = WBC) 7.7 3.7-10.4 [facility] CampusQhxnzndPZYUKEDNFX8239-48-95 05:42:00 Test Item Value Reference Range Interpretation Comments RBC (test code = RBC) 5.15 4.70-6.10 [facility] CampusVuizsxaDHQAQKEPZA7018-93-34 05:42:00 Test Item Value Reference Range Interpretation Comments MPV (test code = MPV) 8.4 7.4-10.4 [facility] CampusQlbdkooSYENAWBZRI3811-25-51 05:42:00 Test Item Value Reference Range Interpretation Comments MCHC (test code = MCHC) 32.3 32.0-36.0 [facility] CampusZzmuefnUQPDAKBHNQ2821-75-96 05:42:00 Test Item Value Reference Range Interpretation Comments RDW (test code = RDW) 17.3 11.5-14.5 [facility] CampusZtxdgqfUEFCGJFCNP7992-61-97 05:42:00 Test Item Value Reference Range Interpretation Comments Platelet (test code = Platelet) 317 133-450 [facility]2018-05-08 05:42:00 Test Item Value Reference Range Interpretation Comments B/C Ratio (test code = B/C Ratio) 17 1 6-25 [place] 704368-05-08 05:42:00 Test Item Value Reference Range Interpretation Comments Globulin (test code = Globulin) 4.3 2.7-4.2 [facility]2018-05-08 05:42:00 Test Item Value Reference Range Interpretation Comments A/G Ratio (test code = A/G Ratio) 0.7 1 0.7-1.6 [place] [address]-05-08 05:42:00 Test Item Value Reference Range Interpretation Comments AGAP (test code = AGAP) 14.4 10.0-20.0 [place] 704368-05-08 05:42:00 Test Item Value Reference Range Interpretation Comments eGFR (test code = eGFR) 113 [place] 704368-05-08 05:42:00 Test Item Value Reference Range Interpretation Comments Alk Phos (test code = Alk Phos) 76 39-136 [place] 704368-05-08 05:42:00 Test Item Value Reference Range Interpretation Comments ALT (test code = ALT) 35 See_Comment [Auto mated message] The system which ge nerated this result transmit lester reference range : <=65. The reference range was not used to interpr et this result as dany l/abnormal. [place] 704368-05-08 05:42:00 Test Item Value Reference Range Interpretation Comments Albumin Lvl (test code = Albumin Lvl) 2.8 3.5-5.0 [place] 704368-05-08 05:42:00 Test Item Value Reference Range Interpretation Comments Total Protein (test code = Total 7.1 6.4-8.4 Protein) [place] 704368-05-08 05:42:00 Test Item Value Reference Range Interpretation Comments Calcium Lvl (test code = Calcium Lvl) 8.7 8.5-10.5 [place] 704368-05-08 05:42:00 Test Item Value Reference Range Interpretation Comments AST (test code = AST) 18 See_Comment [Auto mated message] The system which ge nerated this result transmit lester reference range : <=37. The reference range was not used to interpr et this result as dany l/abnormal. [facility]2018-05-08 05:42:00 Test Item Value Reference Range Interpretation Comments Bili Total (test code = Bili Total) 0.3 0.2-1.3 [facility]2018-05-08 05:42:00 Test Item Value Reference Range Interpretation Comments Potassium Lvl (test code = Potassium 4.4 3.5-5.1 Lvl) [facility]2018-05-08 05:42:00 Test Item Value Reference Range Interpretation Comments Chloride Lvl (test code = Chloride Lvl) 109 95-109 [facility]2018-05-08 05:42:00 Test Item Value Reference Range Interpretation Comments CO2 (test code = CO2) 23 24-32 [place] 704368-05-08 05:42:00 Test Item Value Reference Range Interpretation Comments Glucose Lvl (test code = Glucose Lvl) 114 70-99 [facility]2018-05-08 05:42:00 Test Item Value Reference Range Interpretation Comments Creatinine Lvl (test code = Creatinine 1.01 0.50-1.40 Lvl) [facility]2018-05-08 05:42:00 Test Item Value Reference Range Interpretation Comments BUN (test code = BUN) 17 7-22 [facility]2018-05-08 05:42:00 Test Item Value Reference Range Interpretation Comments Sodium Lvl (test code = Sodium Lvl) 142 135-145 [facility] TylerHpmclvlKOEIBHPYVE4271-83-13 05:42:00 Test Item Value Reference Range Interpretation Comments Basophils (test code = 0.6 See_Comment [Aut omated message] The Basophils) system which ge nerated this result tra nsmitted reference range : <=1.0. The reference r boubacar was not used to int erpret this result as normal/abnormal . [facility] TylerWdzfqwvETXKREVZYI6885-89-67 05:42:00 Test Item Value Reference Range Interpretation Comments Segs-Bands # (test code = Segs-Bands #) 4.8 1.5-8.1 [place] 475008-05-08 05:42:00 Test Item Value Reference Range Interpretation Comments Monocytes # (test code 0.7 See_Comment [Aut omated message] The = Monocytes #) system which generated this result tra nsmitted reference range : <=0.8. The reference r boubacar was not used to int erpret this result as normal/abnormal . [facility] TylerRnkjqjpQCYTQISRKR9780-18-10 05:42:00 Test Item Value Reference Range Interpretation Comments Lymphocytes # (test code = Lymphocytes 1.9 1.0-5.5 #) [facility] TylerDknrgjoMNWDBBPQGJ0287-01-82 05:42:00 Test Item Value Reference Range Interpretation Comments Monocytes (test code = Monocytes) 9.4 2.0-12.0 [facility] TylerTgbekbcKNAHOWEVAT4702-43-75 05:42:00 Test Item Value Reference Range Interpretation Comments Eosinophils # (test code 0.2 See_Comment [A utomated message] The = Eosinophils #) system whic h generated this result tra nsmitted reference range : <=0.5. The reference r boubacar was not used to int erpret this result as normal/abnormal . [facility] TylerIjhfefqSIJEFQXTQT3079-63-21 05:42:00 Test Item Value Reference Range Interpretation Comments Eosinophils (test code = 2.9 See_Comment [A utomated message] The Eosinophils) system which ge nerated this result tra nsmitted reference range : <=4.0. The reference r boubacar was not used to int erpret this result as normal/abnormal . [facility] TylerXqfzloqCIYIOAZPEI0391-79-40 05:42:00 Test Item Value Reference Range Interpretation Comments Segs (test code = Segs) 62.2 45.0-75.0 [facility] TylerPurhiiwCOTBGQKGGN1091-33-99 05:42:00 Test Item Value Reference Range Interpretation Comments Lymphocytes (test code = Lymphocytes) 24.9 20.0-40.0 [facility] TylerOapehmvSAPNRUGYRY8647-74-31 05:42:00 Test Item Value Reference Range Interpretation Comments MCH (test code = MCH) 27.5 pg 27.0-31.0 [facility] TylerRrbqepeSJPVMQWKVQ0768-36-88 05:42:00 Test Item Value Reference Range Interpretation Comments MCV (test code = MCV) 85.3 80.0-94.0 [facility] TylerTrvpuqhDUUBSSEBUF8763-71-95 05:42:00 Test Item Value Reference Range Interpretation Comments Hct (test code = Hct) 43.9 42.0-54.0 [facility] TylerAyfowhiSFJHHURWMQ2165-95-47 05:42:00 Test Item Value Reference Range Interpretation Comments Hgb (test code = Hgb) 14.2 14.0-18.0 [facility] TylerJavkzczJOKQGMMZKI4587-46-50 05:42:00 Test Item Value Reference Range Interpretation Comments WBC (test code = WBC) 7.7 3.7-10.4 [facility] TylerQhvbwbxOLHWDLABVW0640-48-11 05:42:00 Test Item Value Reference Range Interpretation Comments RBC (test code = RBC) 5.15 4.70-6.10 [facility] TylerJgkemuwCYMXYEYRGA0530-55-95 05:42:00 Test Item Value Reference Range Interpretation Comments MPV (test code = MPV) 8.4 7.4-10.4 [facility] TylerHnwkoqoFPECARKPNX5236-47-56 05:42:00 Test Item Value Reference Range Interpretation Comments MCHC (test code = MCHC) 32.3 32.0-36.0 [facility] TylerLvsvihqUFUXKDDFVO2337-36-92 05:42:00 Test Item Value Reference Range Interpretation Comments RDW (test code = RDW) 17.3 11.5-14.5 [facility] TylerCzpfntgZKZBGPWMAF2470-07-80 05:42:00 Test Item Value Reference Range Interpretation Comments Platelet (test code = Platelet) 317 133-450 [facility]2018-05-08 05:42:00 Test Item Value Reference Range Interpretation Comments B/C Ratio (test code = B/C Ratio) 17 1 6-25 [facility]2018-05-08 05:42:00 Test Item Value Reference Range Interpretation Comments Globulin (test code = Globulin) 4.3 2.7-4.2 [facility]2018-05-08 05:42:00 Test Item Value Reference Range Interpretation Comments A/G Ratio (test code = A/G Ratio) 0.7 1 0.7-1.6 [facility]2018-05-08 05:42:00 Test Item Value Reference Range Interpretation Comments AGAP (test code = AGAP) 14.4 10.0-20.0 [facility]2018-05-08 05:42:00 Test Item Value Reference Range Interpretation Comments eGFR (test code = eGFR) 113 [facility]2018-05-08 05:42:00 Test Item Value Reference Range Interpretation Comments Alk Phos (test code = Alk Phos) 76 39-136 [facility]2018-05-08 05:42:00 Test Item Value Reference Range Interpretation Comments ALT (test code = ALT) 35 See_Comment [Auto mated message] The system which ge nerated this result transmit lester reference range : <=65. The reference range was not used to interpr et this result as dany l/abnormal. [facility]2018-05-08 05:42:00 Test Item Value Reference Range Interpretation Comments Albumin Lvl (test code = Albumin Lvl) 2.8 3.5-5.0 [facility]2018-05-08 05:42:00 Test Item Value Reference Range Interpretation Comments Total Protein (test code = Total 7.1 6.4-8.4 Protein) [facility]2018-05-08 05:42:00 Test Item Value Reference Range Interpretation Comments Calcium Lvl (test code = Calcium Lvl) 8.7 8.5-10.5 [facility]2018-05-08 05:42:00 Test Item Value Reference Range Interpretation Comments AST (test code = AST) 18 See_Comment [Auto mated message] The system which ge nerated this result transmit lester reference range : <=37. The reference range was not used to interpr et this result as dany l/abnormal. [facility]2018-05-08 05:42:00 Test Item Value Reference Range Interpretation Comments Bili Total (test code = Bili Total) 0.3 0.2-1.3 [facility]2018-05-08 05:42:00 Test Item Value Reference Range Interpretation Comments Potassium Lvl (test code = Potassium 4.4 3.5-5.1 Lvl) [facility]2018-05-08 05:42:00 Test Item Value Reference Range Interpretation Comments Chloride Lvl (test code = Chloride Lvl) 109 95-109 [facility]2018-05-08 05:42:00 Test Item Value Reference Range Interpretation Comments CO2 (test code = CO2) 23 24-32 [facility]2018-05-08 05:42:00 Test Item Value Reference Range Interpretation Comments Glucose Lvl (test code = Glucose Lvl) 114 70-99 [facility]2018-05-08 05:42:00 Test Item Value Reference Range Interpretation Comments Creatinine Lvl (test code = Creatinine 1.01 0.50-1.40 Lvl) [facility]2018-05-08 05:42:00 Test Item Value Reference Range Interpretation Comments BUN (test code = BUN) 17 7-22 [facility]2018-05-08 05:42:00 Test Item Value Reference Range Interpretation Comments Sodium Lvl (test code = Sodium Lvl) 142 135-145 [facility]IvmkdplTSKWMXQYGX6247-43-17 05:42:00 Test Item Value Reference Range Interpretation Comments Basophils (test code = 0.6 See_Comment [Aut omated message] The Basophils) system which ge nerated this result tra nsmitted reference range : <=1.0. The reference r boubacar was not used to int erpret this result as normal/abnormal . [facility] TylerZmaubhuTUOYLYHYPX4039-57-26 05:42:00 Test Item Value Reference Range Interpretation Comments Segs-Bands # (test code = Segs-Bands #) 4.8 1.5-8.1 [facility] TylerVejoiluIZKJCZXXMF8743-07-11 05:42:00 Test Item Value Reference Range Interpretation Comments Monocytes # (test code 0.7 See_Comment [Aut omated message] The = Monocytes #) system which generated this result tra nsmitted reference range : <=0.8. The reference r boubacar was not used to int erpret this result as normal/abnormal . [facility] TylerKrldejaSUXDNTFRUP2525-66-23 05:42:00 Test Item Value Reference Range Interpretation Comments Lymphocytes # (test code = Lymphocytes 1.9 1.0-5.5 #) [facility] TylerOozjlpcMVFRKTBDRV0913-21-89 05:42:00 Test Item Value Reference Range Interpretation Comments Monocytes (test code = Monocytes) 9.4 2.0-12.0 [facility] TylerOrvchftQSTRRNTKKZ4946-80-10 05:42:00 Test Item Value Reference Range Interpretation Comments Eosinophils # (test code 0.2 See_Comment [A utomated message] The = Eosinophils #) system whic h generated this result tra nsmitted reference range : <=0.5. The reference r boubacar was not used to int erpret this result as normal/abnormal . [facility] TylerExmljvvQFTIUCXGMG6740-62-50 05:42:00 Test Item Value Reference Range Interpretation Comments Eosinophils (test code = 2.9 See_Comment [A utomated message] The Eosinophils) system which ge nerated this result tra nsmitted reference range : <=4.0. The reference r boubacar was not used to int erpret this result as normal/abnormal . [facility] TylerJxjtvnxZIPJXAEJMG1660-07-36 05:42:00 Test Item Value Reference Range Interpretation Comments Segs (test code = Segs) 62.2 45.0-75.0 [facility] TylerEbxfetxNTXQBQCMHA2043-66-11 05:42:00 Test Item Value Reference Range Interpretation Comments Lymphocytes (test code = Lymphocytes) 24.9 20.0-40.0 [facility] TylerTyaqvxxGSUQYUOWAH5927-97-70 05:42:00 Test Item Value Reference Range Interpretation Comments MCH (test code = MCH) 27.5 pg 27.0-31.0 [facility] TylerPhgghwgCUJMAIQWED0102-48-08 05:42:00 Test Item Value Reference Range Interpretation Comments MCV (test code = MCV) 85.3 80.0-94.0 [facility] TylerIvgyaidEXRVPZWMQZ1319-29-90 05:42:00 Test Item Value Reference Range Interpretation Comments Hct (test code = Hct) 43.9 42.0-54.0 [facility] TylerLyuetudEGNIUSGMBH0179-94-61 05:42:00 Test Item Value Reference Range Interpretation Comments Hgb (test code = Hgb) 14.2 14.0-18.0 [facility] TylerCanmwjsHPHGNARYFE2601-23-82 05:42:00 Test Item Value Reference Range Interpretation Comments WBC (test code = WBC) 7.7 3.7-10.4 [facility] TylerPuzuyulAAHCHFAXWM6317-07-79 05:42:00 Test Item Value Reference Range Interpretation Comments RBC (test code = RBC) 5.15 4.70-6.10 [facility] TylerWomesphMJPGRRZMES0543-75-61 05:42:00 Test Item Value Reference Range Interpretation Comments MPV (test code = MPV) 8.4 7.4-10.4 [facility] TylerPyozzkhGDHOLYVIHK4632-79-99 05:42:00 Test Item Value Reference Range Interpretation Comments MCHC (test code = MCHC) 32.3 32.0-36.0 [facility] TylerYomkuwsMFHANSRIOM0575-65-88 05:42:00 Test Item Value Reference Range Interpretation Comments RDW (test code = RDW) 17.3 11.5-14.5 [facility]UcyebhmUHTPFDXAEL5877-52-00 05:42:00 Test Item Value Reference Range Interpretation Comments Platelet (test code = Platelet) 317 133-450 [facility]2018-05-08 05:42:00 Test Item Value Reference Range Interpretation Comments B/C Ratio (test code = B/C Ratio) 17 1 6-25 [facility]2018-05-08 05:42:00 Test Item Value Reference Range Interpretation Comments Globulin (test code = Globulin) 4.3 2.7-4.2 [facility]2018-05-08 05:42:00 Test Item Value Reference Range Interpretation Comments A/G Ratio (test code = A/G Ratio) 0.7 1 0.7-1.6 [facility]2018-05-08 05:42:00 Test Item Value Reference Range Interpretation Comments AGAP (test code = AGAP) 14.4 10.0-20.0 [facility]2018-05-08 05:42:00 Test Item Value Reference Range Interpretation Comments eGFR (test code = eGFR) 113 [facility]2018-05-08 05:42:00 Test Item Value Reference Range Interpretation Comments Alk Phos (test code = Alk Phos) 76 39-136 [facility]2018-05-08 05:42:00 Test Item Value Reference Range Interpretation Comments ALT (test code = ALT) 35 See_Comment [Auto mated message] The system which ge nerated this result transmit lester reference range : <=65. The reference range was not used to interpr et this result as dany l/abnormal. [facility]2018-05-08 05:42:00 Test Item Value Reference Range Interpretation Comments Albumin Lvl (test code = Albumin Lvl) 2.8 3.5-5.0 [facility]2018-05-08 05:42:00 Test Item Value Reference Range Interpretation Comments Total Protein (test code = Total 7.1 6.4-8.4 Protein) [facility]2018-05-08 05:42:00 Test Item Value Reference Range Interpretation Comments Calcium Lvl (test code = Calcium Lvl) 8.7 8.5-10.5 [facility]2018-05-08 05:42:00 Test Item Value Reference Range Interpretation Comments AST (test code = AST) 18 See_Comment [Auto mated message] The system which ge nerated this result transmit lester reference range : <=37. The reference range was not used to interpr et this result as dany l/abnormal. [facility]2018-05-08 05:42:00 Test Item Value Reference Range Interpretation Comments Bili Total (test code = Bili Total) 0.3 0.2-1.3 [facility]2018-05-08 05:42:00 Test Item Value Reference Range Interpretation Comments Potassium Lvl (test code = Potassium 4.4 3.5-5.1 Lvl) [facility]2018-05-08 05:42:00 Test Item Value Reference Range Interpretation Comments Chloride Lvl (test code = Chloride Lvl) 109 95-109 [facility]2018-05-08 05:42:00 Test Item Value Reference Range Interpretation Comments CO2 (test code = CO2) 23 24-32 [facility]2018-05-08 05:42:00 Test Item Value Reference Range Interpretation Comments Glucose Lvl (test code = Glucose Lvl) 114 70-99 [facility]2018-05-08 05:42:00 Test Item Value Reference Range Interpretation Comments Creatinine Lvl (test code = Creatinine 1.01 0.50-1.40 Lvl) [facility]2018-05-08 05:42:00 Test Item Value Reference Range Interpretation Comments BUN (test code = BUN) 17 7-22 [facility]2018-05-08 05:42:00 Test Item Value Reference Range Interpretation Comments Sodium Lvl (test code = Sodium Lvl) 142 135-145 [facility] TylerHhtdfcqVAZOYDFRVF8991-31-64 05:42:00 Test Item Value Reference Range Interpretation Comments Basophils (test code = 0.6 See_Comment [Aut omated message] The Basophils) system which ge nerated this result tra nsmitted reference range : <=1.0. The reference r boubacar was not used to int erpret this result as normal/abnormal . [facility] TylerCcucooqIGESRMFKET8188-19-08 05:42:00 Test Item Value Reference Range Interpretation Comments Segs-Bands # (test code = Segs-Bands #) 4.8 1.5-8.1 [facility] TylerMckyxitQOUGFYUPCF5549-98-50 05:42:00 Test Item Value Reference Range Interpretation Comments Monocytes # (test code 0.7 See_Comment [Aut omated message] The = Monocytes #) system which generated this result tra nsmitted reference range : <=0.8. The reference r boubacar was not used to int erpret this result as normal/abnormal . [facility] TylerTglsfbdRZKRNNYAVX5644-18-30 05:42:00 Test Item Value Reference Range Interpretation Comments Lymphocytes # (test code = Lymphocytes 1.9 1.0-5.5 #) [facility] TylerYcvldybTJOTJDLMWF2526-98-90 05:42:00 Test Item Value Reference Range Interpretation Comments Monocytes (test code = Monocytes) 9.4 2.0-12.0 [facility] TylerOhnwogdZQWTQKATOX7437-90-52 05:42:00 Test Item Value Reference Range Interpretation Comments Eosinophils # (test code 0.2 See_Comment [A utomated message] The = Eosinophils #) system whic h generated this result tra nsmitted reference range : <=0.5. The reference r boubacar was not used to int erpret this result as normal/abnormal . [facility] TylerBmisimrUQNSIOZHZK5672-22-47 05:42:00 Test Item Value Reference Range Interpretation Comments Eosinophils (test code = 2.9 See_Comment [A utomated message] The Eosinophils) system which ge nerated this result tra nsmitted reference range : <=4.0. The reference r boubacar was not used to int erpret this result as normal/abnormal . [facility] TylerKpoxxvvHIEILUPAIC1289-61-58 05:42:00 Test Item Value Reference Range Interpretation Comments Segs (test code = Segs) 62.2 45.0-75.0 [facility] TylerHeansthOHFOGHECDE9427-08-83 05:42:00 Test Item Value Reference Range Interpretation Comments Lymphocytes (test code = Lymphocytes) 24.9 20.0-40.0 [facility] TylerZujmvfgZJRNIWLRIY1385-28-98 05:42:00 Test Item Value Reference Range Interpretation Comments MCH (test code = MCH) 27.5 pg 27.0-31.0 [facility] TylerJotbjdxEJSUODXEKT8618-98-36 05:42:00 Test Item Value Reference Range Interpretation Comments MCV (test code = MCV) 85.3 80.0-94.0 [facility] TylerOamppjaFPQYJUXYOI1032-43-33 05:42:00 Test Item Value Reference Range Interpretation Comments Hct (test code = Hct) 43.9 42.0-54.0 [facility] TylerOmdnlzxACPGQYYIVB5955-11-33 05:42:00 Test Item Value Reference Range Interpretation Comments Hgb (test code = Hgb) 14.2 14.0-18.0 [facility] TylerZwbpuxdEOYZTKFANZ5100-72-66 05:42:00 Test Item Value Reference Range Interpretation Comments WBC (test code = WBC) 7.7 3.7-10.4 [facility] TylerMoxouhmTWTDXEBTKO9989-87-16 05:42:00 Test Item Value Reference Range Interpretation Comments RBC (test code = RBC) 5.15 4.70-6.10 [facility] TylerCgardqzDERKINTZRO8028-10-04 05:42:00 Test Item Value Reference Range Interpretation Comments MPV (test code = MPV) 8.4 7.4-10.4 [facility] TylerFofjpujWNTWESHGRF8128-98-40 05:42:00 Test Item Value Reference Range Interpretation Comments MCHC (test code = MCHC) 32.3 32.0-36.0 [facility] TylerKlpdhzzCFYUPQQDJQ9294-69-91 05:42:00 Test Item Value Reference Range Interpretation Comments RDW (test code = RDW) 17.3 11.5-14.5 [facility] TylerHlmqvnyTVNREBKJJY2884-40-52 05:42:00 Test Item Value Reference Range Interpretation Comments Platelet (test code = Platelet) 317 133-450 [facility]2018-05-07 09:36:00 Test Item Value Reference Range Interpretation Comments Globulin (test code = Globulin) 4.4 2.7-4.2 [facility]2018-05-07 09:36:00 Test Item Value Reference Range Interpretation Comments A/G Ratio (test code = A/G Ratio) 0.6 1 0.7-1.6 [facility]2018-05-07 09:36:00 Test Item Value Reference Range Interpretation Comments B/C Ratio (test code = B/C Ratio) 17 1 6-25 [facility]2018-05-07 09:36:00 Test Item Value Reference Range Interpretation Comments AGAP (test code = AGAP) 11.3 10.0-20.0 [facility]2018-05-07 09:36:00 Test Item Value Reference Range Interpretation Comments eGFR (test code = eGFR) 134 [facility]2018-05-07 09:36:00 Test Item Value Reference Range Interpretation Comments Creatinine Lvl (test code = Creatinine 0.84 0.50-1.40 Lvl) [facility]2018-05-07 09:36:00 Test Item Value Reference Range Interpretation Comments Sodium Lvl (test code = Sodium Lvl) 142 135-145 [facility]2018-05-07 09:36:00 Test Item Value Reference Range Interpretation Comments Glucose Lvl (test code = Glucose Lvl) 99 70-99 [facility]2018-05-07 09:36:00 Test Item Value Reference Range Interpretation Comments BUN (test code = BUN) 14 7-22 [facility]2018-05-07 09:36:00 Test Item Value Reference Range Interpretation Comments Alk Phos (test code = Alk Phos) 79 39-136 [facility]2018-05-07 09:36:00 Test Item Value Reference Range Interpretation Comments Bili Total (test code = Bili Total) 0.3 0.2-1.3 [facility]2018-05-07 09:36:00 Test Item Value Reference Range Interpretation Comments AST (test code = AST) 14 See_Comment [Auto mated message] The system which ge nerated this result transmit lester reference range : <=37. The reference range was not used to interpr et this result as dany l/abnormal. [facility]2018-05-07 09:36:00 Test Item Value Reference Range Interpretation Comments ALT (test code = ALT) 43 See_Comment [Auto mated message] The system which ge nerated this result transmit lester reference range : <=65. The reference range was not used to interpr et this result as dany l/abnormal. [facility]2018-05-07 09:36:00 Test Item Value Reference Range Interpretation Comments Total Protein (test code = Total 7.1 6.4-8.4 Protein) [facility]2018-05-07 09:36:00 Test Item Value Reference Range Interpretation Comments Albumin Lvl (test code = Albumin Lvl) 2.7 3.5-5.0 [place] 704368-05-07 09:36:00 Test Item Value Reference Range Interpretation Comments Calcium Lvl (test code = Calcium Lvl) 9.2 8.5-10.5 [facility]2018-05-07 09:36:00 Test Item Value Reference Range Interpretation Comments CO2 (test code = CO2) 21 24-32 [place] 704368-05-07 09:36:00 Test Item Value Reference Range Interpretation Comments Potassium Lvl (test code = Potassium 4.3 3.5-5.1 Lvl) [facility]2018-05-07 09:36:00 Test Item Value Reference Range Interpretation Comments Chloride Lvl (test code = Chloride Lvl) 114 95-109 [facility] TylerVkonuqaZRUHUBOGTE7898-85-06 09:36:00 Test Item Value Reference Range Interpretation Comments MCHC (test code = MCHC) 32.5 32.0-36.0 [facility] TylerOqusdcoEJELJOOKXS0123-55-86 09:36:00 Test Item Value Reference Range Interpretation Comments RDW (test code = RDW) 17.5 11.5-14.5 [facility] TylerOpawvydCAYKVAQZBC0615-87-84 09:36:00 Test Item Value Reference Range Interpretation Comments Platelet (test code = Platelet) 400 133-450 [facility] TylerLxwqmuuPHXGSMSHPY5514-27-61 09:36:00 Test Item Value Reference Range Interpretation Comments MPV (test code = MPV) 8.5 7.4-10.4 [facility] TylerObvwqauXVTCUWOOGD7886-42-47 09:36:00 Test Item Value Reference Range Interpretation Comments WBC (test code = WBC) 6.6 3.7-10.4 [facility] TylerAdduurhBGCQSLRZFX8438-05-41 09:36:00 Test Item Value Reference Range Interpretation Comments RBC (test code = RBC) 5.17 4.70-6.10 [facility] TylerFmggarqICZYMGHMSC3345-93-44 09:36:00 Test Item Value Reference Range Interpretation Comments MCV (test code = MCV) 86.1 80.0-94.0 [facility] TylerBrxijydAWQDJPAUAZ2632-48-21 09:36:00 Test Item Value Reference Range Interpretation Comments Hct (test code = Hct) 44.5 42.0-54.0 [facility] TylerBiflhilFSNITTEMMB1750-48-99 09:36:00 Test Item Value Reference Range Interpretation Comments MCH (test code = MCH) 28.0 pg 27.0-31.0 [facility] TylerYganaybKJNXNMNAHB4498-71-03 09:36:00 Test Item Value Reference Range Interpretation Comments Hgb (test code = Hgb) 14.5 14.0-18.0 [facility] TylerNjnkxigBSWNMSCQAP5294-01-76 09:36:00 Test Item Value Reference Range Interpretation Comments Lymphocytes # (test code = Lymphocytes 1.7 1.0-5.5 #) [facility] TylerOouizqaRSRONDGPEZ8105-81-24 09:36:00 Test Item Value Reference Range Interpretation Comments Monocytes # (test code 0.7 See_Comment [Aut omated message] The = Monocytes #) system which generated this result tra nsmitted reference range : <=0.8. The reference r boubacar was not used to int erpret this result as normal/abnormal . [facility] TylerCpdyngkQLNVVHZWIR7942-80-63 09:36:00 Test Item Value Reference Range Interpretation Comments Eosinophils # (test code 0.2 See_Comment [A utomated message] The = Eosinophils #) system whic h generated this result tra nsmitted reference range : <=0.5. The reference r boubacar was not used to int erpret this result as normal/abnormal . [facility] TylerYhvzqawNLOGJKPKXZ2096-54-12 09:36:00 Test Item Value Reference Range Interpretation Comments Lymphocytes (test code = Lymphocytes) 26.1 20.0-40.0 [facility] TylerXewerwvIYEVOKVXJJ3091-06-05 09:36:00 Test Item Value Reference Range Interpretation Comments Segs (test code = Segs) 59.3 45.0-75.0 [facility] TylerZuchkmaJKSZDEKJVR5545-94-42 09:36:00 Test Item Value Reference Range Interpretation Comments Basophils (test code = 0.8 See_Comment [Aut omated message] The Basophils) system which ge nerated this result tra nsmitted reference range : <=1.0. The reference r boubacar was not used to int erpret this result as normal/abnormal . [facility] TylerLhxiwgnUPVYVKKDLU5188-16-18 09:36:00 Test Item Value Reference Range Interpretation Comments Monocytes (test code = Monocytes) 10.5 2.0-12.0 [facility] TylerOvwuswjKKHMPQRAOB5402-55-70 09:36:00 Test Item Value Reference Range Interpretation Comments Eosinophils (test code = 3.3 See_Comment [A utomated message] The Eosinophils) system which ge nerated this result tra nsmitted reference range : <=4.0. The reference r boubacar was not used to int erpret this result as normal/abnormal . [facility] TylerDmqwcmkDZYLCXGZFC3875-55-43 09:36:00 Test Item Value Reference Range Interpretation Comments Segs-Bands # (test code = Segs-Bands #) 3.9 1.5-8.1 [facility]2018-05-07 09:36:00 Test Item Value Reference Range Interpretation Comments Globulin (test code = Globulin) 4.4 2.7-4.2 [facility]2018-05-07 09:36:00 Test Item Value Reference Range Interpretation Comments A/G Ratio (test code = A/G Ratio) 0.6 1 0.7-1.6 [place] [address]-05-07 09:36:00 Test Item Value Reference Range Interpretation Comments B/C Ratio (test code = B/C Ratio) 17 1 6-25 [place] 704368-05-07 09:36:00 Test Item Value Reference Range Interpretation Comments AGAP (test code = AGAP) 11.3 10.0-20.0 [facility]2018-05-07 09:36:00 Test Item Value Reference Range Interpretation Comments eGFR (test code = eGFR) 134 [facility]2018-05-07 09:36:00 Test Item Value Reference Range Interpretation Comments Creatinine Lvl (test code = Creatinine 0.84 0.50-1.40 Lvl) [facility]2018-05-07 09:36:00 Test Item Value Reference Range Interpretation Comments Sodium Lvl (test code = Sodium Lvl) 142 135-145 [facility]2018-05-07 09:36:00 Test Item Value Reference Range Interpretation Comments Glucose Lvl (test code = Glucose Lvl) 99 70-99 [facility]2018-05-07 09:36:00 Test Item Value Reference Range Interpretation Comments BUN (test code = BUN) 14 7-22 [place] 704368-05-07 09:36:00 Test Item Value Reference Range Interpretation Comments Alk Phos (test code = Alk Phos) 79 39-136 [facility]2018-05-07 09:36:00 Test Item Value Reference Range Interpretation Comments Bili Total (test code = Bili Total) 0.3 0.2-1.3 [facility]2018-05-07 09:36:00 Test Item Value Reference Range Interpretation Comments AST (test code = AST) 14 See_Comment [Auto mated message] The system which ge nerated this result transmit lester reference range : <=37. The reference range was not used to interpr et this result as dany l/abnormal. [place] 704368-05-07 09:36:00 Test Item Value Reference Range Interpretation Comments ALT (test code = ALT) 43 See_Comment [Auto mated message] The system which ge nerated this result transmit lester reference range : <=65. The reference range was not used to interpr et this result as dany l/abnormal. [facility]2018-05-07 09:36:00 Test Item Value Reference Range Interpretation Comments Total Protein (test code = Total 7.1 6.4-8.4 Protein) [place] 704368-05-07 09:36:00 Test Item Value Reference Range Interpretation Comments Albumin Lvl (test code = Albumin Lvl) 2.7 3.5-5.0 [place] 704368-05-07 09:36:00 Test Item Value Reference Range Interpretation Comments Calcium Lvl (test code = Calcium Lvl) 9.2 8.5-10.5 [place] 704368-05-07 09:36:00 Test Item Value Reference Range Interpretation Comments CO2 (test code = CO2) 21 24-32 [place] 704368-05-07 09:36:00 Test Item Value Reference Range Interpretation Comments Potassium Lvl (test code = Potassium 4.3 3.5-5.1 Lvl) [facility]2018-05-07 09:36:00 Test Item Value Reference Range Interpretation Comments Chloride Lvl (test code = Chloride Lvl) 114 95-109 [facility] TylerMwrouynMJJPNGBMMC3297-71-10 09:36:00 Test Item Value Reference Range Interpretation Comments MCHC (test code = MCHC) 32.5 32.0-36.0 [facility] TylerEelkkvtBBSEMPPMES6077-23-58 09:36:00 Test Item Value Reference Range Interpretation Comments RDW (test code = RDW) 17.5 11.5-14.5 [facility] TylerUmafhtvLCRYLBMXMJ0706-84-57 09:36:00 Test Item Value Reference Range Interpretation Comments Platelet (test code = Platelet) 400 133-450 [facility] TylerWsrfzhtBJAVFPKUVQ8945-60-19 09:36:00 Test Item Value Reference Range Interpretation Comments MPV (test code = MPV) 8.5 7.4-10.4 [facility] TylerGinuacbGVUFPHUAPA5470-22-14 09:36:00 Test Item Value Reference Range Interpretation Comments WBC (test code = WBC) 6.6 3.7-10.4 [facility] TylerSgszigtFXBPAYNYET6298-73-97 09:36:00 Test Item Value Reference Range Interpretation Comments RBC (test code = RBC) 5.17 4.70-6.10 [facility] TylerLvhenfjEJWMOTWLGR6739-48-72 09:36:00 Test Item Value Reference Range Interpretation Comments MCV (test code = MCV) 86.1 80.0-94.0 [facility] TylerAmncqdnEAOYBEVVTI9995-49-85 09:36:00 Test Item Value Reference Range Interpretation Comments Hct (test code = Hct) 44.5 42.0-54.0 [facility] TylerEafdbrgEVRPGVIPLN7757-78-13 09:36:00 Test Item Value Reference Range Interpretation Comments MCH (test code = MCH) 28.0 pg 27.0-31.0 [facility] TylerVbifqigUWLMXKRWPN5128-83-08 09:36:00 Test Item Value Reference Range Interpretation Comments Hgb (test code = Hgb) 14.5 14.0-18.0 [facility] TylerXhgrjauEROMFEYSTR6207-91-03 09:36:00 Test Item Value Reference Range Interpretation Comments Lymphocytes # (test code = Lymphocytes 1.7 1.0-5.5 #) [facility] TylerIxjgjqaIGXDHPAIPN7154-17-68 09:36:00 Test Item Value Reference Range Interpretation Comments Monocytes # (test code 0.7 See_Comment [Aut omated message] The = Monocytes #) system which generated this result tra nsmitted reference range : <=0.8. The reference r boubacar was not used to int erpret this result as normal/abnormal . [facility] TylerXlxsaqsQCDCXBXQLH5819-13-86 09:36:00 Test Item Value Reference Range Interpretation Comments Eosinophils # (test code 0.2 See_Comment [A utomated message] The = Eosinophils #) system whic h generated this result tra nsmitted reference range : <=0.5. The reference r boubacar was not used to int erpret this result as normal/abnormal . [facility] TylerDnadhujTAPPMFIAXE2107-53-18 09:36:00 Test Item Value Reference Range Interpretation Comments Lymphocytes (test code = Lymphocytes) 26.1 20.0-40.0 [facility] TylerRmpgsttKBWXWFVKVX0197-18-96 09:36:00 Test Item Value Reference Range Interpretation Comments Segs (test code = Segs) 59.3 45.0-75.0 [facility] TylerDsgpsxsLSWKQSGSQC9006-40-20 09:36:00 Test Item Value Reference Range Interpretation Comments Basophils (test code = 0.8 See_Comment [Aut omated message] The Basophils) system which ge nerated this result tra nsmitted reference range : <=1.0. The reference r boubacar was not used to int erpret this result as normal/abnormal . [facility] TylerKcyhfmxNHCXPYSLWY9931-20-37 09:36:00 Test Item Value Reference Range Interpretation Comments Monocytes (test code = Monocytes) 10.5 2.0-12.0 [facility] TylerStqiymuXMZLCSFHYX5785-07-57 09:36:00 Test Item Value Reference Range Interpretation Comments Eosinophils (test code = 3.3 See_Comment [A utomated message] The Eosinophils) system which ge nerated this result tra nsmitted reference range : <=4.0. The reference r boubacar was not used to int erpret this result as normal/abnormal . [facility] TylerJnnfnlbYORPPYIIQQ6711-80-00 09:36:00 Test Item Value Reference Range Interpretation Comments Segs-Bands # (test code = Segs-Bands #) 3.9 1.5-8.1 [facility] [id number] 09:36:00 Test Item Value Reference Range Interpretation Comments Globulin (test code = Globulin) 4.4 2.7-4.2 [facility] [id number] 09:36:00 Test Item Value Reference Range Interpretation Comments A/G Ratio (test code = A/G Ratio) 0.6 1 0.7-1.6 [facility] [id number] 09:36:00 Test Item Value Reference Range Interpretation Comments B/C Ratio (test code = B/C Ratio) 17 1 6-25 [facility]2018-05-07 09:36:00 Test Item Value Reference Range Interpretation Comments AGAP (test code = AGAP) 11.3 10.0-20.0 [facility]2018-05-07 09:36:00 Test Item Value Reference Range Interpretation Comments eGFR (test code = eGFR) 134 [facility]2018-05-07 09:36:00 Test Item Value Reference Range Interpretation Comments Creatinine Lvl (test code = Creatinine 0.84 0.50-1.40 Lvl) [facility]2018-05-07 09:36:00 Test Item Value Reference Range Interpretation Comments Sodium Lvl (test code = Sodium Lvl) 142 135-145 [place] 704368-05-07 09:36:00 Test Item Value Reference Range Interpretation Comments Glucose Lvl (test code = Glucose Lvl) 99 70-99 [place] 704368-05-07 09:36:00 Test Item Value Reference Range Interpretation Comments BUN (test code = BUN) 14 7-22 [facility]2018-05-07 09:36:00 Test Item Value Reference Range Interpretation Comments Alk Phos (test code = Alk Phos) 79 39-136 [place] 704368-05-07 09:36:00 Test Item Value Reference Range Interpretation Comments Bili Total (test code = Bili Total) 0.3 0.2-1.3 [place] 704368-05-07 09:36:00 Test Item Value Reference Range Interpretation Comments AST (test code = AST) 14 See_Comment [Auto mated message] The system which ge nerated this result transmit lester reference range : <=37. The reference range was not used to interpr et this result as dany l/abnormal. [place] 704368-05-07 09:36:00 Test Item Value Reference Range Interpretation Comments ALT (test code = ALT) 43 See_Comment [Auto mated message] The system which ge nerated this result transmit lester reference range : <=65. The reference range was not used to interpr et this result as dany l/abnormal. [place] 704368-05-07 09:36:00 Test Item Value Reference Range Interpretation Comments Total Protein (test code = Total 7.1 6.4-8.4 Protein) [facility]2018-05-07 09:36:00 Test Item Value Reference Range Interpretation Comments Albumin Lvl (test code = Albumin Lvl) 2.7 3.5-5.0 [place] 704368-05-07 09:36:00 Test Item Value Reference Range Interpretation Comments Calcium Lvl (test code = Calcium Lvl) 9.2 8.5-10.5 [facility]2018-05-07 09:36:00 Test Item Value Reference Range Interpretation Comments CO2 (test code = CO2) 21 24-32 [place] 704368-05-07 09:36:00 Test Item Value Reference Range Interpretation Comments Potassium Lvl (test code = Potassium 4.3 3.5-5.1 Lvl) [facility]2018-05-07 09:36:00 Test Item Value Reference Range Interpretation Comments Chloride Lvl (test code = Chloride Lvl) 114 95-109 [facility] TylerZgvkumoDJKVNFECPZ7813-14-21 09:36:00 Test Item Value Reference Range Interpretation Comments MCHC (test code = MCHC) 32.5 32.0-36.0 [facility] TylerSpnnhgoABWFNMWRCX6268-20-86 09:36:00 Test Item Value Reference Range Interpretation Comments RDW (test code = RDW) 17.5 11.5-14.5 [facility] TylerVmnkzbwFHYAJBAEXR3161-76-97 09:36:00 Test Item Value Reference Range Interpretation Comments Platelet (test code = Platelet) 400 133-450 [facility] TylerQabpohxVARYZJEFFG5064-55-62 09:36:00 Test Item Value Reference Range Interpretation Comments MPV (test code = MPV) 8.5 7.4-10.4 [facility] TylerHvxnyuqMELQCVBGDK9905-13-42 09:36:00 Test Item Value Reference Range Interpretation Comments WBC (test code = WBC) 6.6 3.7-10.4 [facility] TylerNexxocgXQSGETAIXM2856-70-09 09:36:00 Test Item Value Reference Range Interpretation Comments RBC (test code = RBC) 5.17 4.70-6.10 [place] 475008-05-07 09:36:00 Test Item Value Reference Range Interpretation Comments MCV (test code = MCV) 86.1 80.0-94.0 [place] 475008-05-07 09:36:00 Test Item Value Reference Range Interpretation Comments Hct (test code = Hct) 44.5 42.0-54.0 [facility] TylerFdjywjkEXELEMCAVI1592-89-42 09:36:00 Test Item Value Reference Range Interpretation Comments MCH (test code = MCH) 28.0 pg 27.0-31.0 [facility] TylerNuynddzZKVGTIOZGO9373-99-47 09:36:00 Test Item Value Reference Range Interpretation Comments Hgb (test code = Hgb) 14.5 14.0-18.0 [facility] TylerWafebcbZXTIZRPJWK3859-20-23 09:36:00 Test Item Value Reference Range Interpretation Comments Lymphocytes # (test code = Lymphocytes 1.7 1.0-5.5 #) [facility] TylerGxdakyeNBIZLWHDRW2666-96-14 09:36:00 Test Item Value Reference Range Interpretation Comments Monocytes # (test code 0.7 See_Comment [Aut omated message] The = Monocytes #) system which generated this result tra nsmitted reference range : <=0.8. The reference r boubacar was not used to int erpret this result as normal/abnormal . [facility] TylerVimqcmuILUFZLEACK5690-63-67 09:36:00 Test Item Value Reference Range Interpretation Comments Eosinophils # (test code 0.2 See_Comment [A utomated message] The = Eosinophils #) system whic h generated this result tra nsmitted reference range : <=0.5. The reference r boubacar was not used to int erpret this result as normal/abnormal . [facility] TylerHtycosfOJCXKBFMIV7873-43-18 09:36:00 Test Item Value Reference Range Interpretation Comments Lymphocytes (test code = Lymphocytes) 26.1 20.0-40.0 [facility] TylerQnxsraoYPFDCWDKSE3190-84-37 09:36:00 Test Item Value Reference Range Interpretation Comments Segs (test code = Segs) 59.3 45.0-75.0 [facility] TylerMmwneytQREMYGKJYY4301-49-98 09:36:00 Test Item Value Reference Range Interpretation Comments Basophils (test code = 0.8 See_Comment [Aut omated message] The Basophils) system which ge nerated this result tra nsmitted reference range : <=1.0. The reference r boubacar was not used to int erpret this result as normal/abnormal . [facility] TylerIshunyuJEQMOXNYQG7814-95-00 09:36:00 Test Item Value Reference Range Interpretation Comments Monocytes (test code = Monocytes) 10.5 2.0-12.0 [facility] TylerVhmuzsfGJARWOYKRR1022-49-59 09:36:00 Test Item Value Reference Range Interpretation Comments Eosinophils (test code = 3.3 See_Comment [A utomated message] The Eosinophils) system which ge nerated this result tra nsmitted reference range : <=4.0. The reference r boubacar was not used to int erpret this result as normal/abnormal . [facility] TylerQazuxovBZXSBNAIDN2006-99-83 09:36:00 Test Item Value Reference Range Interpretation Comments Segs-Bands # (test code = Segs-Bands #) 3.9 1.5-8.1 [place] 704368-05-07 09:36:00 Test Item Value Reference Range Interpretation Comments Globulin (test code = Globulin) 4.4 2.7-4.2 [place] 704368-05-07 09:36:00 Test Item Value Reference Range Interpretation Comments A/G Ratio (test code = A/G Ratio) 0.6 1 0.7-1.6 [place] 704368-05-07 09:36:00 Test Item Value Reference Range Interpretation Comments B/C Ratio (test code = B/C Ratio) 17 1 6-25 [facility]2018-05-07 09:36:00 Test Item Value Reference Range Interpretation Comments AGAP (test code = AGAP) 11.3 10.0-20.0 [facility]2018-05-07 09:36:00 Test Item Value Reference Range Interpretation Comments eGFR (test code = eGFR) 134 [facility]2018-05-07 09:36:00 Test Item Value Reference Range Interpretation Comments Creatinine Lvl (test code = Creatinine 0.84 0.50-1.40 Lvl) [facility]2018-05-07 09:36:00 Test Item Value Reference Range Interpretation Comments Sodium Lvl (test code = Sodium Lvl) 142 135-145 [facility]2018-05-07 09:36:00 Test Item Value Reference Range Interpretation Comments Glucose Lvl (test code = Glucose Lvl) 99 70-99 [place] 704368-05-07 09:36:00 Test Item Value Reference Range Interpretation Comments BUN (test code = BUN) 14 7-22 [facility]2018-05-07 09:36:00 Test Item Value Reference Range Interpretation Comments Alk Phos (test code = Alk Phos) 79 39-136 [facility]2018-05-07 09:36:00 Test Item Value Reference Range Interpretation Comments Bili Total (test code = Bili Total) 0.3 0.2-1.3 [place] 704368-05-07 09:36:00 Test Item Value Reference Range Interpretation Comments AST (test code = AST) 14 See_Comment [Auto mated message] The system which ge nerated this result transmit lester reference range : <=37. The reference range was not used to interpr et this result as dany l/abnormal. [facility]2018-05-07 09:36:00 Test Item Value Reference Range Interpretation Comments ALT (test code = ALT) 43 See_Comment [Auto mated message] The system which ge nerated this result transmit lester reference range : <=65. The reference range was not used to interpr et this result as dany l/abnormal. [facility]2018-05-07 09:36:00 Test Item Value Reference Range Interpretation Comments Total Protein (test code = Total 7.1 6.4-8.4 Protein) [facility]2018-05-07 09:36:00 Test Item Value Reference Range Interpretation Comments Albumin Lvl (test code = Albumin Lvl) 2.7 3.5-5.0 [facility]2018-05-07 09:36:00 Test Item Value Reference Range Interpretation Comments Calcium Lvl (test code = Calcium Lvl) 9.2 8.5-10.5 [facility]2018-05-07 09:36:00 Test Item Value Reference Range Interpretation Comments CO2 (test code = CO2) 21 24-32 [facility]2018-05-07 09:36:00 Test Item Value Reference Range Interpretation Comments Potassium Lvl (test code = Potassium 4.3 3.5-5.1 Lvl) [facility]2018-05-07 09:36:00 Test Item Value Reference Range Interpretation Comments Chloride Lvl (test code = Chloride Lvl) 114 95-109 [facility]IM[facility] 09:36:00 Test Item Value Reference Range Interpretation Comments MCHC (test code = MCHC) 32.5 32.0-36.0 [facility] TylerXqhahfdOIVPLRTEJT3666-65-03 09:36:00 Test Item Value Reference Range Interpretation Comments RDW (test code = RDW) 17.5 11.5-14.5 [facility] TylerSkcbvcwWRCVHNORQL6161-80-96 09:36:00 Test Item Value Reference Range Interpretation Comments Platelet (test code = Platelet) 400 133-450 [facility] TylerEdhbghuLGKESMEHNY3111-90-77 09:36:00 Test Item Value Reference Range Interpretation Comments MPV (test code = MPV) 8.5 7.4-10.4 [facility] TylerPtfggeiPKEASAIKQK5493-41-66 09:36:00 Test Item Value Reference Range Interpretation Comments WBC (test code = WBC) 6.6 3.7-10.4 [facility] TylerYuffiotVTOANHNXQK8277-92-00 09:36:00 Test Item Value Reference Range Interpretation Comments RBC (test code = RBC) 5.17 4.70-6.10 [facility] TylerKxdaowhAVHEDKXBNS4278-89-05 09:36:00 Test Item Value Reference Range Interpretation Comments MCV (test code = MCV) 86.1 80.0-94.0 [facility] TylerMmnzvykIDVYSVOXZV0132-89-72 09:36:00 Test Item Value Reference Range Interpretation Comments Hct (test code = Hct) 44.5 42.0-54.0 [facility] TylerWnmquccDCMBSASYUC3587-53-77 09:36:00 Test Item Value Reference Range Interpretation Comments MCH (test code = MCH) 28.0 pg 27.0-31.0 [facility] TylerVohmsftLHKUKPHQHA6196-85-82 09:36:00 Test Item Value Reference Range Interpretation Comments Hgb (test code = Hgb) 14.5 14.0-18.0 [facility] TylerGyqaeqtFCJLPBVLZO1008-93-79 09:36:00 Test Item Value Reference Range Interpretation Comments Lymphocytes # (test code = Lymphocytes 1.7 1.0-5.5 #) [facility] TylerZnstpcvNWCAWQKAEU6555-02-10 09:36:00 Test Item Value Reference Range Interpretation Comments Monocytes # (test code 0.7 See_Comment [Aut omated message] The = Monocytes #) system which generated this result tra nsmitted reference range : <=0.8. The reference r boubacar was not used to int erpret this result as normal/abnormal . [facility] TylerVfqsjsnOKPSBUUPDC5632-56-39 09:36:00 Test Item Value Reference Range Interpretation Comments Eosinophils # (test code 0.2 See_Comment [A utomated message] The = Eosinophils #) system whic h generated this result tra nsmitted reference range : <=0.5. The reference r boubacar was not used to int erpret this result as normal/abnormal . [facility] TylerHyxyvliGJKLFTVRLE2921-00-50 09:36:00 Test Item Value Reference Range Interpretation Comments Lymphocytes (test code = Lymphocytes) 26.1 20.0-40.0 [facility] TylerZmyetujNSHHCKSGAR2694-23-81 09:36:00 Test Item Value Reference Range Interpretation Comments Segs (test code = Segs) 59.3 45.0-75.0 [facility] TylerLlljvpsMCWWAHCTIE8750-49-81 09:36:00 Test Item Value Reference Range Interpretation Comments Basophils (test code = 0.8 See_Comment [Aut omated message] The Basophils) system which ge nerated this result tra nsmitted reference range : <=1.0. The reference r boubacar was not used to int erpret this result as normal/abnormal . [facility] TylerXuxjvnxYJGNATEHSF4805-27-45 09:36:00 Test Item Value Reference Range Interpretation Comments Monocytes (test code = Monocytes) 10.5 2.0-12.0 [facility] TylerUyzfjoqHQPZQEWQUW7398-38-24 09:36:00 Test Item Value Reference Range Interpretation Comments Eosinophils (test code = 3.3 See_Comment [A utomated message] The Eosinophils) system which ge nerated this result tra nsmitted reference range : <=4.0. The reference r boubacar was not used to int erpret this result as normal/abnormal . [facility] TylerHoudzhgKASWUQAQYF6393-04-63 09:36:00 Test Item Value Reference Range Interpretation Comments Segs-Bands # (test code = Segs-Bands #) 3.9 1.5-8.1 [facility] [id number] 09:36:00 Test Item Value Reference Range Interpretation Comments Globulin (test code = Globulin) 4.4 2.7-4.2 [facility] KQXYJ7503-78-16 09:36:00 Test Item Value Reference Range Interpretation Comments A/G Ratio (test code = A/G Ratio) 0.6 1 0.7-1.6 [place] [address]-05-07 09:36:00 Test Item Value Reference Range Interpretation Comments B/C Ratio (test code = B/C Ratio) 17 1 6-25 [place] [address]-05-07 09:36:00 Test Item Value Reference Range Interpretation Comments AGAP (test code = AGAP) 11.3 10.0-20.0 [place] 704368-05-07 09:36:00 Test Item Value Reference Range Interpretation Comments eGFR (test code = eGFR) 134 [place] [address]-05-07 09:36:00 Test Item Value Reference Range Interpretation Comments Creatinine Lvl (test code = Creatinine 0.84 0.50-1.40 Lvl) [place] [address]-05-07 09:36:00 Test Item Value Reference Range Interpretation Comments Sodium Lvl (test code = Sodium Lvl) 142 135-145 [place] 704368-05-07 09:36:00 Test Item Value Reference Range Interpretation Comments Glucose Lvl (test code = Glucose Lvl) 99 70-99 [place] 704368-05-07 09:36:00 Test Item Value Reference Range Interpretation Comments BUN (test code = BUN) 14 7-22 [place] 704368-05-07 09:36:00 Test Item Value Reference Range Interpretation Comments Alk Phos (test code = Alk Phos) 79 39-136 [place] 704368-05-07 09:36:00 Test Item Value Reference Range Interpretation Comments Bili Total (test code = Bili Total) 0.3 0.2-1.3 [place] 704368-05-07 09:36:00 Test Item Value Reference Range Interpretation Comments AST (test code = AST) 14 See_Comment [Auto mated message] The system which ge nerated this result transmit lester reference range : <=37. The reference range was not used to interpr et this result as dany l/abnormal. [place] 704368-05-07 09:36:00 Test Item Value Reference Range Interpretation Comments ALT (test code = ALT) 43 See_Comment [Auto mated message] The system which ge nerated this result transmit lester reference range : <=65. The reference range was not used to interpr et this result as dany l/abnormal. [facility]2018-05-07 09:36:00 Test Item Value Reference Range Interpretation Comments Total Protein (test code = Total 7.1 6.4-8.4 Protein) [facility]2018-05-07 09:36:00 Test Item Value Reference Range Interpretation Comments Albumin Lvl (test code = Albumin Lvl) 2.7 3.5-5.0 [facility]2018-05-07 09:36:00 Test Item Value Reference Range Interpretation Comments Calcium Lvl (test code = Calcium Lvl) 9.2 8.5-10.5 [facility]2018-05-07 09:36:00 Test Item Value Reference Range Interpretation Comments CO2 (test code = CO2) 21 24-32 [facility]2018-05-07 09:36:00 Test Item Value Reference Range Interpretation Comments Potassium Lvl (test code = Potassium 4.3 3.5-5.1 Lvl) [facility]2018-05-07 09:36:00 Test Item Value Reference Range Interpretation Comments Chloride Lvl (test code = Chloride Lvl) 114 95-109 [facility] TylerRijuuvjWGENWIWTYW4882-33-43 09:36:00 Test Item Value Reference Range Interpretation Comments MCHC (test code = MCHC) 32.5 32.0-36.0 [facility] TylerTjvdgdxLRYPREOKNX9553-71-20 09:36:00 Test Item Value Reference Range Interpretation Comments RDW (test code = RDW) 17.5 11.5-14.5 [facility] TylerNnfutjmDLSYPWIMWT8560-60-02 09:36:00 Test Item Value Reference Range Interpretation Comments Platelet (test code = Platelet) 400 133-450 [facility] TylerIkbzwvzFYTBHKVEHQ9809-76-13 09:36:00 Test Item Value Reference Range Interpretation Comments MPV (test code = MPV) 8.5 7.4-10.4 [facility] TylerBqstozgEGTZQRVTUY2235-77-26 09:36:00 Test Item Value Reference Range Interpretation Comments WBC (test code = WBC) 6.6 3.7-10.4 [facility] TylerLrtjmqgRRALHUQAOU7676-89-59 09:36:00 Test Item Value Reference Range Interpretation Comments RBC (test code = RBC) 5.17 4.70-6.10 [place] 475008-05-07 09:36:00 Test Item Value Reference Range Interpretation Comments MCV (test code = MCV) 86.1 80.0-94.0 [facility] TylerWcmepkcGENEKCHJAU5945-69-01 09:36:00 Test Item Value Reference Range Interpretation Comments Hct (test code = Hct) 44.5 42.0-54.0 [facility] TylerOrhdvogTNPJVAHXAV2737-08-40 09:36:00 Test Item Value Reference Range Interpretation Comments MCH (test code = MCH) 28.0 pg 27.0-31.0 [facility] TylerHklnzejKSDGVPSJTA1008-58-03 09:36:00 Test Item Value Reference Range Interpretation Comments Hgb (test code = Hgb) 14.5 14.0-18.0 [facility] TylerItobbiuFTVNXXZBSC4977-76-34 09:36:00 Test Item Value Reference Range Interpretation Comments Lymphocytes # (test code = Lymphocytes 1.7 1.0-5.5 #) [facility] TylerHjgdowvWJOSCELRYO8654-46-30 09:36:00 Test Item Value Reference Range Interpretation Comments Monocytes # (test code 0.7 See_Comment [Aut omated message] The = Monocytes #) system which generated this result tra nsmitted reference range : <=0.8. The reference r boubacar was not used to int erpret this result as normal/abnormal . [facility] TylerLmvycoqJKERASVEPF9038-02-14 09:36:00 Test Item Value Reference Range Interpretation Comments Eosinophils # (test code 0.2 See_Comment [A utomated message] The = Eosinophils #) system whic h generated this result tra nsmitted reference range : <=0.5. The reference r boubacar was not used to int erpret this result as normal/abnormal . [facility] TylerMbnddjpSXFRTWNWDJ5941-02-65 09:36:00 Test Item Value Reference Range Interpretation Comments Lymphocytes (test code = Lymphocytes) 26.1 20.0-40.0 [facility] TylerFflgwaiQPUYHZCGKO3978-03-35 09:36:00 Test Item Value Reference Range Interpretation Comments Segs (test code = Segs) 59.3 45.0-75.0 [facility] TylerSkprpxxUMPBCFVGXO6808-55-35 09:36:00 Test Item Value Reference Range Interpretation Comments Basophils (test code = 0.8 See_Comment [Aut omated message] The Basophils) system which ge nerated this result tra nsmitted reference range : <=1.0. The reference r boubacar was not used to int erpret this result as normal/abnormal . [facility] TylerAtbcdscFXWTDISCJH2578-50-61 09:36:00 Test Item Value Reference Range Interpretation Comments Monocytes (test code = Monocytes) 10.5 2.0-12.0 [place] 475008-05-07 09:36:00 Test Item Value Reference Range Interpretation Comments Eosinophils (test code = 3.3 See_Comment [A utomated message] The Eosinophils) system which ge nerated this result tra nsmitted reference range : <=4.0. The reference r boubacar was not used to int erpret this result as normal/abnormal . [place] 475008-05-07 09:36:00 Test Item Value Reference Range Interpretation Comments Segs-Bands # (test code = Segs-Bands #) 3.9 1.5-8.1 [place] 704368-05-07 09:36:00 Test Item Value Reference Range Interpretation Comments Globulin (test code = Globulin) 4.4 2.7-4.2 [place] 704368-05-07 09:36:00 Test Item Value Reference Range Interpretation Comments A/G Ratio (test code = A/G Ratio) 0.6 1 0.7-1.6 [place] 704368-05-07 09:36:00 Test Item Value Reference Range Interpretation Comments B/C Ratio (test code = B/C Ratio) 17 1 6-25 [facility]2018-05-07 09:36:00 Test Item Value Reference Range Interpretation Comments AGAP (test code = AGAP) 11.3 10.0-20.0 [place] 704368-05-07 09:36:00 Test Item Value Reference Range Interpretation Comments eGFR (test code = eGFR) 134 [place] 704368-05-07 09:36:00 Test Item Value Reference Range Interpretation Comments Creatinine Lvl (test code = Creatinine 0.84 0.50-1.40 Lvl) [place] 704368-05-07 09:36:00 Test Item Value Reference Range Interpretation Comments Sodium Lvl (test code = Sodium Lvl) 142 135-145 [facility]2018-05-07 09:36:00 Test Item Value Reference Range Interpretation Comments Glucose Lvl (test code = Glucose Lvl) 99 70-99 [facility]2018-05-07 09:36:00 Test Item Value Reference Range Interpretation Comments BUN (test code = BUN) 14 7-22 [facility]2018-05-07 09:36:00 Test Item Value Reference Range Interpretation Comments Alk Phos (test code = Alk Phos) 79 39-136 [facility]2018-05-07 09:36:00 Test Item Value Reference Range Interpretation Comments Bili Total (test code = Bili Total) 0.3 0.2-1.3 [facility]2018-05-07 09:36:00 Test Item Value Reference Range Interpretation Comments AST (test code = AST) 14 See_Comment [Auto mated message] The system which ge nerated this result transmit lester reference range : <=37. The reference range was not used to interpr et this result as dany l/abnormal. [facility]2018-05-07 09:36:00 Test Item Value Reference Range Interpretation Comments ALT (test code = ALT) 43 See_Comment [Auto mated message] The system which ge nerated this result transmit lester reference range : <=65. The reference range was not used to interpr et this result as dany l/abnormal. [facility]2018-05-07 09:36:00 Test Item Value Reference Range Interpretation Comments Total Protein (test code = Total 7.1 6.4-8.4 Protein) [facility]2018-05-07 09:36:00 Test Item Value Reference Range Interpretation Comments Albumin Lvl (test code = Albumin Lvl) 2.7 3.5-5.0 [place] 704368-05-07 09:36:00 Test Item Value Reference Range Interpretation Comments Calcium Lvl (test code = Calcium Lvl) 9.2 8.5-10.5 [place] 704368-05-07 09:36:00 Test Item Value Reference Range Interpretation Comments CO2 (test code = CO2) 21 24-32 [place] 704368-05-07 09:36:00 Test Item Value Reference Range Interpretation Comments Potassium Lvl (test code = Potassium 4.3 3.5-5.1 Lvl) [place] [address]-05-07 09:36:00 Test Item Value Reference Range Interpretation Comments Chloride Lvl (test code = Chloride Lvl) 114 95-109 [facility] TylerSuyoofvEXYZFXOWFX7726-74-28 09:36:00 Test Item Value Reference Range Interpretation Comments MCHC (test code = MCHC) 32.5 32.0-36.0 [facility] TylerXujbronJNFUXFGIMP2665-41-97 09:36:00 Test Item Value Reference Range Interpretation Comments RDW (test code = RDW) 17.5 11.5-14.5 [facility] TylerQuaspbyZLGJYMXSKV1538-93-62 09:36:00 Test Item Value Reference Range Interpretation Comments Platelet (test code = Platelet) 400 133-450 [facility] TylerGrhzwucMOGDCPOHPQ1525-94-36 09:36:00 Test Item Value Reference Range Interpretation Comments MPV (test code = MPV) 8.5 7.4-10.4 [facility] TylerTybsiryYYYOBRPJOY5046-91-17 09:36:00 Test Item Value Reference Range Interpretation Comments WBC (test code = WBC) 6.6 3.7-10.4 [facility] TylerQrrajajEAZUYPKSTP4414-85-81 09:36:00 Test Item Value Reference Range Interpretation Comments RBC (test code = RBC) 5.17 4.70-6.10 [facility] TylerYwaunveMEATNIWSSS1560-06-23 09:36:00 Test Item Value Reference Range Interpretation Comments MCV (test code = MCV) 86.1 80.0-94.0 [facility] TylerBkpbkjnHZAOQLBRYU9500-89-75 09:36:00 Test Item Value Reference Range Interpretation Comments Hct (test code = Hct) 44.5 42.0-54.0 [facility] TylerHjnbunxILVLNFFVNQ7457-88-18 09:36:00 Test Item Value Reference Range Interpretation Comments MCH (test code = MCH) 28.0 pg 27.0-31.0 [facility] TylerBikxsdgXFOOCZKAQB0261-29-72 09:36:00 Test Item Value Reference Range Interpretation Comments Hgb (test code = Hgb) 14.5 14.0-18.0 [facility] TylerTtuywcqIGGJRIJWTG5979-34-47 09:36:00 Test Item Value Reference Range Interpretation Comments Lymphocytes # (test code = Lymphocytes 1.7 1.0-5.5 #) [facility] TylerYcdiowoNOIVOYYUQS5852-11-39 09:36:00 Test Item Value Reference Range Interpretation Comments Monocytes # (test code 0.7 See_Comment [Aut omated message] The = Monocytes #) system which generated this result tra nsmitted reference range : <=0.8. The reference r boubacar was not used to int erpret this result as normal/abnormal . [facility] TylerDbtzqmrACBHAUYWUU1990-30-24 09:36:00 Test Item Value Reference Range Interpretation Comments Eosinophils # (test code 0.2 See_Comment [A utomated message] The = Eosinophils #) system whic h generated this result tra nsmitted reference range : <=0.5. The reference r boubacar was not used to int erpret this result as normal/abnormal . [facility] TylerPyzuqjmMNFSYMYDUN3425-57-85 09:36:00 Test Item Value Reference Range Interpretation Comments Lymphocytes (test code = Lymphocytes) 26.1 20.0-40.0 [facility] TylerKmgebjxOQPVAGXBBF1849-98-82 09:36:00 Test Item Value Reference Range Interpretation Comments Segs (test code = Segs) 59.3 45.0-75.0 [facility] TylerEsxppoaAYGBSMENPJ8530-24-02 09:36:00 Test Item Value Reference Range Interpretation Comments Basophils (test code = 0.8 See_Comment [Aut omated message] The Basophils) system which ge nerated this result tra nsmitted reference range : <=1.0. The reference r boubacar was not used to int erpret this result as normal/abnormal . [facility] TylerBnjngopOELQVQDMRK5982-10-60 09:36:00 Test Item Value Reference Range Interpretation Comments Monocytes (test code = Monocytes) 10.5 2.0-12.0 [facility] TylerJffvbldMMQDEJKMIS8145-26-62 09:36:00 Test Item Value Reference Range Interpretation Comments Eosinophils (test code = 3.3 See_Comment [A utomated message] The Eosinophils) system which ge nerated this result tra nsmitted reference range : <=4.0. The reference r boubacar was not used to int erpret this result as normal/abnormal . [facility] TylerLtreqcnCCMHASNCDE8547-72-65 09:36:00 Test Item Value Reference Range Interpretation Comments Segs-Bands # (test code = Segs-Bands #) 3.9 1.5-8.1 [facility]qdnbesYZFBUHLHHJ6803-48-11 21:02:00 Test Item Value Reference Range Interpretation Comments Vanco Tr TND (test code = Vanco Tr 15:30pm TND) [facility] IetskmeUXYMLDNBSR9272-02-69 21:02:00 Test Item Value Reference Range Interpretation Comments Vanco Tr (test code = Vanco Tr) 9.1 [facility] AwmlymfJBQHMBUHKX6663-29-87 21:02:00 Test Item Value Reference Range Interpretation Comments Vanco Tr TND (test code = Vanco Tr 15:30pm TND) [facility]EDTLWRKZ0740[facility] 21:02:00 Test Item Value Reference Range Interpretation Comments Vanco Tr (test code = Vanco Tr) 9.1 [facility] XeakgcaRVWZZBOSDF4873-20-96 21:02:00 Test Item Value Reference Range Interpretation Comments Vanco Tr TND (test code = Vanco Tr 15:30pm TND) [facility]SxhckidKZZJFRQMCM5174-58-72 21:02:00 Test Item Value Reference Range Interpretation Comments Vanco Tr (test code = Vanco Tr) 9.1 [facility] YmrjvmzUIJVICMCTN6542-59-92 21:02:00 Test Item Value Reference Range Interpretation Comments Vanco Tr TND (test code = Vanco Tr 15:30pm TND) [facility] HospitalUxeigesOFOZZSWXAS7811-41-93 21:02:00 Test Item Value Reference Range Interpretation Comments Vanco Tr (test code = Vanco Tr) 9.1 [facility] HospitalAwyomuxNVHNFJUFER2891-05-81 21:02:00 Test Item Value Reference Range Interpretation Comments Vanco Tr TND (test code = Vanco Tr 15:30pm TND) [facility] HospitalMjyiwnuUGEXUIATXU6726-18-07 21:02:00 Test Item Value Reference Range Interpretation Comments Vanco Tr (test code = Vanco Tr) 9.1 [facility] ZrzahduJVYNPSIUMW2779-47-07 21:02:00 Test Item Value Reference Range Interpretation Comments Vanco Tr TND (test code = Vanco Tr 15:30pm TND) [facility] HospitalNebytxoNUNYSRCOGD0292-92-22 21:02:00 Test Item Value Reference Range Interpretation Comments Vanco Tr (test code = Vanco Tr) 9.1 [facility]ann[facility] JBFDI6541-57-79 07:07:00 Test Item Value Reference Range Interpretation Comments Glucose Lvl (test code = Glucose Lvl) 74 70-99 [place] 704368-05-06 07:07:00 Test Item Value Reference Range Interpretation Comments BUN (test code = BUN) 12 7-22 [place] 704368-05-06 07:07:00 Test Item Value Reference Range Interpretation Comments Creatinine Lvl (test code = Creatinine 0.75 0.50-1.40 Lvl) [place] 704368-05-06 07:07:00 Test Item Value Reference Range Interpretation Comments eGFR (test code = eGFR) 140 [place] 704368-05-06 07:07:00 Test Item Value Reference Range Interpretation Comments Albumin Lvl (test code = Albumin Lvl) 2.9 3.5-5.0 [place] 704368-05-06 07:07:00 Test Item Value Reference Range Interpretation Comments Globulin (test code = Globulin) 4.4 2.7-4.2 [place] 704368-05-06 07:07:00 Test Item Value Reference Range Interpretation Comments A/G Ratio (test code = A/G Ratio) 0.7 1 0.7-1.6 [place] [address]-05-06 07:07:00 Test Item Value Reference Range Interpretation Comments Bili Total (test code = Bili Total) 0.4 0.2-1.3 [place] 704368-05-06 07:07:00 Test Item Value Reference Range Interpretation Comments Alk Phos (test code = Alk Phos) 71 39-136 [place] 704368-05-06 07:07:00 Test Item Value Reference Range Interpretation Comments AST (test code = AST) 15 See_Comment [Auto mated message] The system which ge nerated this result transmit lester reference range : <=37. The reference range was not used to interpr et this result as dany l/abnormal. [place] 704368-05-06 07:07:00 Test Item Value Reference Range Interpretation Comments ALT (test code = ALT) 28 See_Comment [Auto mated message] The system which ge nerated this result transmit lester reference range : <=65. The reference range was not used to interpr et this result as dany l/abnormal. [address]05-06 07:07:00 Test Item Value Reference Range Interpretation Comments Potassium Lvl (test code = Potassium 4.4 3.5-5.1 Lvl) [facility]2018-05-06 07:07:00 Test Item Value Reference Range Interpretation Comments Sodium Lvl (test code = Sodium Lvl) 147 135-145 [place] 704368-05-06 07:07:00 Test Item Value Reference Range Interpretation Comments CO2 (test code = CO2) 25 24-32 [place] 704368-05-06 07:07:00 Test Item Value Reference Range Interpretation Comments Chloride Lvl (test code = Chloride Lvl) 114 95-109 [place] 704368-05-06 07:07:00 Test Item Value Reference Range Interpretation Comments B/C Ratio (test code = B/C Ratio) 16 1 6-25 [place] 704368-05-06 07:07:00 Test Item Value Reference Range Interpretation Comments Calcium Lvl (test code = Calcium Lvl) 8.7 8.5-10.5 [facility]2018-05-06 07:07:00 Test Item Value Reference Range Interpretation Comments AGAP (test code = AGAP) 12.4 10.0-20.0 [place] 704368-05-06 07:07:00 Test Item Value Reference Range Interpretation Comments Total Protein (test code = Total 7.3 6.4-8.4 Protein) [facility] TylerOpowmwiPBTIUNLDHD2548-75-29 07:07:00 Test Item Value Reference Range Interpretation Comments Platelet (test code = Platelet) 345 133-450 [facility] TylerBjdofruTUSHETYROQ7982-00-07 07:07:00 Test Item Value Reference Range Interpretation Comments MPV (test code = MPV) 8.7 7.4-10.4 [place] 475008-05-06 07:07:00 Test Item Value Reference Range Interpretation Comments WBC (test code = WBC) 6.9 3.7-10.4 [facility] TylerYwhgokhWAQXSDYSZA7359-77-44 07:07:00 Test Item Value Reference Range Interpretation Comments RBC (test code = RBC) 5.30 4.70-6.10 [place] 475008-05-06 07:07:00 Test Item Value Reference Range Interpretation Comments MCHC (test code = MCHC) 32.8 32.0-36.0 [facility] TylerKsrfrgpNLQAEOKROM6189-41-07 07:07:00 Test Item Value Reference Range Interpretation Comments MCH (test code = MCH) 27.9 pg 27.0-31.0 [facility] TylerWrpicqxCMRVUDLPLU5082-80-26 07:07:00 Test Item Value Reference Range Interpretation Comments Hgb (test code = Hgb) 14.8 14.0-18.0 [facility] TylerUpibbwnMUKBBESJGG7983-18-54 07:07:00 Test Item Value Reference Range Interpretation Comments MCV (test code = MCV) 85.0 80.0-94.0 [facility] TylerBmctdqyDEPOPRJXME4795-58-65 07:07:00 Test Item Value Reference Range Interpretation Comments Hct (test code = Hct) 45.1 42.0-54.0 [facility] TylerFwktpumPJXLNVJGSV9416-34-54 07:07:00 Test Item Value Reference Range Interpretation Comments RDW (test code = RDW) 17.5 11.5-14.5 [facility] TylerUhgstcmPLMYEBDNXN2456-40-41 07:07:00 Test Item Value Reference Range Interpretation Comments Eosinophils # (test code 0.2 See_Comment [A utomated message] The = Eosinophils #) system whic h generated this result tra nsmitted reference range : <=0.5. The reference r boubacar was not used to int erpret this result as normal/abnormal . [facility] TylerHznqhwaAUSOZVZARA2149-23-74 07:07:00 Test Item Value Reference Range Interpretation Comments Lymphocytes # (test code = Lymphocytes 2.0 1.0-5.5 #) [facility] TylerKhukrbsYEXHYYSHQI0180-06-99 07:07:00 Test Item Value Reference Range Interpretation Comments Monocytes # (test code 0.7 See_Comment [Aut omated message] The = Monocytes #) system which generated this result tra nsmitted reference range : <=0.8. The reference r boubacar was not used to int erpret this result as normal/abnormal . [facility] TylerGgsvnmeJNENVVHYSY6275-31-06 07:07:00 Test Item Value Reference Range Interpretation Comments Eosinophils (test code = 2.4 See_Comment [A utomated message] The Eosinophils) system which ge nerated this result tra nsmitted reference range : <=4.0. The reference r boubacar was not used to int erpret this result as normal/abnormal . [facility] TylerBcfxfjgCSWESKUXZK2235-90-05 07:07:00 Test Item Value Reference Range Interpretation Comments Basophils (test code = 0.6 See_Comment [Aut omated message] The Basophils) system which ge nerated this result tra nsmitted reference range : <=1.0. The reference r boubacar was not used to int erpret this result as normal/abnormal . [facility] TylerFgodhmlNXSGHFLODC2299-06-21 07:07:00 Test Item Value Reference Range Interpretation Comments Segs-Bands # (test code = Segs-Bands #) 4.0 1.5-8.1 [facility] TylerYvvuctzQXGRSNJIMV6022-97-39 07:07:00 Test Item Value Reference Range Interpretation Comments Monocytes (test code = Monocytes) 10.4 2.0-12.0 [facility] TylerNfqxyazNOHZIRWRYO5962-86-14 07:07:00 Test Item Value Reference Range Interpretation Comments RBC Morph (test code = Normal (11/17/17 2:07 AM) RBC Morph) [facility] TylerQxciwrgFLBIHLWYLL0710-73-75 07:07:00 Test Item Value Reference Range Interpretation Comments Segs (test code = Segs) 58.1 45.0-75.0 [facility] TylerKsarhtpGUAFGFAHCF7634-93-25 07:07:00 Test Item Value Reference Range Interpretation Comments Plt Morph (test code = Normal (11/17/17 2:07 AM) Plt Morph) [facility] TylerIcktymxSOOHARMQBF9140-13-25 07:07:00 Test Item Value Reference Range Interpretation Comments Lymphocytes (test code = Lymphocytes) 28.5 20.0-40.0 [facility]2018-05-06 07:07:00 Test Item Value Reference Range Interpretation Comments Glucose Lvl (test code = Glucose Lvl) 74 70-99 [facility]2018-05-06 07:07:00 Test Item Value Reference Range Interpretation Comments BUN (test code = BUN) 12 7-22 [facility]2018-05-06 07:07:00 Test Item Value Reference Range Interpretation Comments Creatinine Lvl (test code = Creatinine 0.75 0.50-1.40 Lvl) [place] 704368-05-06 07:07:00 Test Item Value Reference Range Interpretation Comments eGFR (test code = eGFR) 140 [facility]2018-05-06 07:07:00 Test Item Value Reference Range Interpretation Comments Albumin Lvl (test code = Albumin Lvl) 2.9 3.5-5.0 [place] 704368-05-06 07:07:00 Test Item Value Reference Range Interpretation Comments Globulin (test code = Globulin) 4.4 2.7-4.2 [place] 704368-05-06 07:07:00 Test Item Value Reference Range Interpretation Comments A/G Ratio (test code = A/G Ratio) 0.7 1 0.7-1.6 [place] [address]-05-06 07:07:00 Test Item Value Reference Range Interpretation Comments Bili Total (test code = Bili Total) 0.4 0.2-1.3 [place] 704368-05-06 07:07:00 Test Item Value Reference Range Interpretation Comments Alk Phos (test code = Alk Phos) 71 39-136 [place] 704368-05-06 07:07:00 Test Item Value Reference Range Interpretation Comments AST (test code = AST) 15 See_Comment [Auto mated message] The system which ge nerated this result transmit lester reference range : <=37. The reference range was not used to interpr et this result as dany l/abnormal. [place] 704368-05-06 07:07:00 Test Item Value Reference Range Interpretation Comments ALT (test code = ALT) 28 See_Comment [Auto mated message] The system which ge nerated this result transmit lester reference range : <=65. The reference range was not used to interpr et this result as dany l/abnormal. [place] 704368-05-06 07:07:00 Test Item Value Reference Range Interpretation Comments Potassium Lvl (test code = Potassium 4.4 3.5-5.1 Lvl) [place] 704368-05-06 07:07:00 Test Item Value Reference Range Interpretation Comments Sodium Lvl (test code = Sodium Lvl) 147 135-145 [place] 704368-05-06 07:07:00 Test Item Value Reference Range Interpretation Comments CO2 (test code = CO2) 25 24-32 [place] 704368-05-06 07:07:00 Test Item Value Reference Range Interpretation Comments Chloride Lvl (test code = Chloride Lvl) 114 95-109 [facility]2018-05-06 07:07:00 Test Item Value Reference Range Interpretation Comments B/C Ratio (test code = B/C Ratio) 16 1 6-25 [facility]2018-05-06 07:07:00 Test Item Value Reference Range Interpretation Comments Calcium Lvl (test code = Calcium Lvl) 8.7 8.5-10.5 [facility]2018-05-06 07:07:00 Test Item Value Reference Range Interpretation Comments AGAP (test code = AGAP) 12.4 10.0-20.0 [facility]2018-05-06 07:07:00 Test Item Value Reference Range Interpretation Comments Total Protein (test code = Total 7.3 6.4-8.4 Protein) [facility] TylerNesfesnJNZUEAHECU5626-07-82 07:07:00 Test Item Value Reference Range Interpretation Comments Platelet (test code = Platelet) 345 133-450 [facility] TylerJgftylhRVDAHJTRGI4273-77-46 07:07:00 Test Item Value Reference Range Interpretation Comments MPV (test code = MPV) 8.7 7.4-10.4 [facility] TylerPlwcdsnPUQXTDWOZE3135-83-83 07:07:00 Test Item Value Reference Range Interpretation Comments WBC (test code = WBC) 6.9 3.7-10.4 [facility] TylerDphjqqjBNXEDZXFHY3115-77-46 07:07:00 Test Item Value Reference Range Interpretation Comments RBC (test code = RBC) 5.30 4.70-6.10 [facility] TylerFxupzfuBWAVJOOQJP2950-70-49 07:07:00 Test Item Value Reference Range Interpretation Comments MCHC (test code = MCHC) 32.8 32.0-36.0 [facility] TylerUgxkgedMBPOSZKIHW4225-49-00 07:07:00 Test Item Value Reference Range Interpretation Comments MCH (test code = MCH) 27.9 pg 27.0-31.0 [facility] TylerGeqqvaaRSWISHNWGQ0838-83-65 07:07:00 Test Item Value Reference Range Interpretation Comments Hgb (test code = Hgb) 14.8 14.0-18.0 [facility] TylerKjcuhdrDNGGWKFNAU1844-97-79 07:07:00 Test Item Value Reference Range Interpretation Comments MCV (test code = MCV) 85.0 80.0-94.0 [facility] TylerPhzdkqkMJHEAKWVPX9531-60-24 07:07:00 Test Item Value Reference Range Interpretation Comments Hct (test code = Hct) 45.1 42.0-54.0 [facility] TylerXdfxldnQNICUFJYCE5610-40-74 07:07:00 Test Item Value Reference Range Interpretation Comments RDW (test code = RDW) 17.5 11.5-14.5 [facility] TylerTceqqmwDKJGDBOJVD0174-97-50 07:07:00 Test Item Value Reference Range Interpretation Comments Eosinophils # (test code 0.2 See_Comment [A utomated message] The = Eosinophils #) system whic h generated this result tra nsmitted reference range : <=0.5. The reference r boubacar was not used to int erpret this result as normal/abnormal . [facility] TylerJtxyyxoMBJLOWYHGX1174-51-61 07:07:00 Test Item Value Reference Range Interpretation Comments Lymphocytes # (test code = Lymphocytes 2.0 1.0-5.5 #) [facility] TylerHnsragpDSAUWCRANO7539-39-98 07:07:00 Test Item Value Reference Range Interpretation Comments Monocytes # (test code 0.7 See_Comment [Aut omated message] The = Monocytes #) system which generated this result tra nsmitted reference range : <=0.8. The reference r boubacar was not used to int erpret this result as normal/abnormal . [facility] TylerQnuosemEVEDAMJDSZ7476-73-57 07:07:00 Test Item Value Reference Range Interpretation Comments Eosinophils (test code = 2.4 See_Comment [A utomated message] The Eosinophils) system which ge nerated this result tra nsmitted reference range : <=4.0. The reference r boubacar was not used to int erpret this result as normal/abnormal . [facility] TylerKazfhlkHJYAXRVLEJ7635-21-63 07:07:00 Test Item Value Reference Range Interpretation Comments Basophils (test code = 0.6 See_Comment [Aut omated message] The Basophils) system which ge nerated this result tra nsmitted reference range : <=1.0. The reference r boubacar was not used to int erpret this result as normal/abnormal . [facility] TylerYgsqhekFVZHCZPOIE6692-61-10 07:07:00 Test Item Value Reference Range Interpretation Comments Segs-Bands # (test code = Segs-Bands #) 4.0 1.5-8.1 [place] 475008-05-06 07:07:00 Test Item Value Reference Range Interpretation Comments Monocytes (test code = Monocytes) 10.4 2.0-12.0 [facility] TylerUptuodeFXRIPLYTGZ3438-31-46 07:07:00 Test Item Value Reference Range Interpretation Comments RBC Morph (test code = Normal (11/17/17 2:07 AM) RBC Morph) [facility] TylerDllxodjCYIEWFBVAB8270-48-19 07:07:00 Test Item Value Reference Range Interpretation Comments Segs (test code = Segs) 58.1 45.0-75.0 [place] 475008-05-06 07:07:00 Test Item Value Reference Range Interpretation Comments Plt Morph (test code = Normal (11/17/17 2:07 AM) Plt Morph) [facility] TylerYduinkpHLDQQZGYOS6810-79-85 07:07:00 Test Item Value Reference Range Interpretation Comments Lymphocytes (test code = Lymphocytes) 28.5 20.0-40.0 [facility]2018-05-06 07:07:00 Test Item Value Reference Range Interpretation Comments Glucose Lvl (test code = Glucose Lvl) 74 70-99 [facility]2018-05-06 07:07:00 Test Item Value Reference Range Interpretation Comments BUN (test code = BUN) 12 7-22 [facility]2018-05-06 07:07:00 Test Item Value Reference Range Interpretation Comments Creatinine Lvl (test code = Creatinine 0.75 0.50-1.40 Lvl) [facility]2018-05-06 07:07:00 Test Item Value Reference Range Interpretation Comments eGFR (test code = eGFR) 140 [facility]2018-05-06 07:07:00 Test Item Value Reference Range Interpretation Comments Albumin Lvl (test code = Albumin Lvl) 2.9 3.5-5.0 [facility]2018-05-06 07:07:00 Test Item Value Reference Range Interpretation Comments Globulin (test code = Globulin) 4.4 2.7-4.2 [place] 704368-05-06 07:07:00 Test Item Value Reference Range Interpretation Comments A/G Ratio (test code = A/G Ratio) 0.7 1 0.7-1.6 [place] 704368-05-06 07:07:00 Test Item Value Reference Range Interpretation Comments Bili Total (test code = Bili Total) 0.4 0.2-1.3 [place] 704368-05-06 07:07:00 Test Item Value Reference Range Interpretation Comments Alk Phos (test code = Alk Phos) 71 39-136 [facility]2018-05-06 07:07:00 Test Item Value Reference Range Interpretation Comments AST (test code = AST) 15 See_Comment [Auto mated message] The system which ge nerated this result transmit lester reference range : <=37. The reference range was not used to interpr et this result as dany l/abnormal. [place] 704368-05-06 07:07:00 Test Item Value Reference Range Interpretation Comments ALT (test code = ALT) 28 See_Comment [Auto mated message] The system which ge nerated this result transmit lester reference range : <=65. The reference range was not used to interpr et this result as dany l/abnormal. [place] 704368-05-06 07:07:00 Test Item Value Reference Range Interpretation Comments Potassium Lvl (test code = Potassium 4.4 3.5-5.1 Lvl) [facility]2018-05-06 07:07:00 Test Item Value Reference Range Interpretation Comments Sodium Lvl (test code = Sodium Lvl) 147 135-145 [place] 704368-05-06 07:07:00 Test Item Value Reference Range Interpretation Comments CO2 (test code = CO2) 25 24-32 [place] 704368-05-06 07:07:00 Test Item Value Reference Range Interpretation Comments Chloride Lvl (test code = Chloride Lvl) 114 95-109 [place] 704368-05-06 07:07:00 Test Item Value Reference Range Interpretation Comments B/C Ratio (test code = B/C Ratio) 16 1 6-25 [place] 704368-05-06 07:07:00 Test Item Value Reference Range Interpretation Comments Calcium Lvl (test code = Calcium Lvl) 8.7 8.5-10.5 [place] 704368-05-06 07:07:00 Test Item Value Reference Range Interpretation Comments AGAP (test code = AGAP) 12.4 10.0-20.0 [facility]2018-05-06 07:07:00 Test Item Value Reference Range Interpretation Comments Total Protein (test code = Total 7.3 6.4-8.4 Protein) [facility] TylerKkfrmjpUZGGQODCXS1021-09-41 07:07:00 Test Item Value Reference Range Interpretation Comments Platelet (test code = Platelet) 345 133-450 [facility] TylerZixoillQRYMRHXCBO4301-87-53 07:07:00 Test Item Value Reference Range Interpretation Comments MPV (test code = MPV) 8.7 7.4-10.4 [place] 475008-05-06 07:07:00 Test Item Value Reference Range Interpretation Comments WBC (test code = WBC) 6.9 3.7-10.4 [facility] TylerJnlojauISOUDDELEO3226-61-38 07:07:00 Test Item Value Reference Range Interpretation Comments RBC (test code = RBC) 5.30 4.70-6.10 [facility] TylerBpevgkxZOTSQFEOJY2734-51-50 07:07:00 Test Item Value Reference Range Interpretation Comments MCHC (test code = MCHC) 32.8 32.0-36.0 [facility] TylerEhpcopuAACQJCPYFU8766-11-65 07:07:00 Test Item Value Reference Range Interpretation Comments MCH (test code = MCH) 27.9 pg 27.0-31.0 [facility] TylerMgsctjzHOPWFIOQUM7763-37-60 07:07:00 Test Item Value Reference Range Interpretation Comments Hgb (test code = Hgb) 14.8 14.0-18.0 [facility] TylerBqkyqqoFSVECMDSTV2298-54-13 07:07:00 Test Item Value Reference Range Interpretation Comments MCV (test code = MCV) 85.0 80.0-94.0 [facility] TylerBdafmozQNNZMVROVK9872-20-03 07:07:00 Test Item Value Reference Range Interpretation Comments Hct (test code = Hct) 45.1 42.0-54.0 [facility] TylerRfgxftbHKMUXFWTAH7029-77-63 07:07:00 Test Item Value Reference Range Interpretation Comments RDW (test code = RDW) 17.5 11.5-14.5 [facility] TylerPkrhvtvOGBLPYAFIV9775-60-18 07:07:00 Test Item Value Reference Range Interpretation Comments Eosinophils # (test code 0.2 See_Comment [A utomated message] The = Eosinophils #) system whic h generated this result tra nsmitted reference range : <=0.5. The reference r boubacar was not used to int erpret this result as normal/abnormal . [facility] TylerKgptdiaJNUGUYJHEM8320-64-85 07:07:00 Test Item Value Reference Range Interpretation Comments Lymphocytes # (test code = Lymphocytes 2.0 1.0-5.5 #) [facility] TylerFraltkoQERNMCRGCM4098-55-91 07:07:00 Test Item Value Reference Range Interpretation Comments Monocytes # (test code 0.7 See_Comment [Aut omated message] The = Monocytes #) system which generated this result tra nsmitted reference range : <=0.8. The reference r boubacar was not used to int erpret this result as normal/abnormal . [facility] TylerJvkkpexRXKVIRGXRK0925-49-29 07:07:00 Test Item Value Reference Range Interpretation Comments Eosinophils (test code = 2.4 See_Comment [A utomated message] The Eosinophils) system which ge nerated this result tra nsmitted reference range : <=4.0. The reference r boubacar was not used to int erpret this result as normal/abnormal . [facility] TylerUqqslerYKBUEAYBDV5571-61-95 07:07:00 Test Item Value Reference Range Interpretation Comments Basophils (test code = 0.6 See_Comment [Aut omated message] The Basophils) system which ge nerated this result tra nsmitted reference range : <=1.0. The reference r boubacar was not used to int erpret this result as normal/abnormal . [facility] TylerVdaqnkfOCKPPBCMBQ7082-29-62 07:07:00 Test Item Value Reference Range Interpretation Comments Segs-Bands # (test code = Segs-Bands #) 4.0 1.5-8.1 [facility] TylerHjzqhfuTGLPVUMDSR6427-60-32 07:07:00 Test Item Value Reference Range Interpretation Comments Monocytes (test code = Monocytes) 10.4 2.0-12.0 [facility] TylerFqjdmxnVVYZUVGBTJ7901-63-90 07:07:00 Test Item Value Reference Range Interpretation Comments RBC Morph (test code = Normal (11/17/17 2:07 AM) RBC Morph) [facility] TylerHpyyypgIEFFAPYRCX3374-55-98 07:07:00 Test Item Value Reference Range Interpretation Comments Segs (test code = Segs) 58.1 45.0-75.0 [facility] TylerVsqaklvSHRPKQFCHO9102-80-00 07:07:00 Test Item Value Reference Range Interpretation Comments Plt Morph (test code = Normal (11/17/17 2:07 AM) Plt Morph) [facility] TylerWqucjtsQIUMRYUWFD9191-67-58 07:07:00 Test Item Value Reference Range Interpretation Comments Lymphocytes (test code = Lymphocytes) 28.5 20.0-40.0 [place] 704368-05-06 07:07:00 Test Item Value Reference Range Interpretation Comments Glucose Lvl (test code = Glucose Lvl) 74 70-99 [place] 704368-05-06 07:07:00 Test Item Value Reference Range Interpretation Comments BUN (test code = BUN) 12 7-22 [place] 704368-05-06 07:07:00 Test Item Value Reference Range Interpretation Comments Creatinine Lvl (test code = Creatinine 0.75 0.50-1.40 Lvl) [place] 704368-05-06 07:07:00 Test Item Value Reference Range Interpretation Comments eGFR (test code = eGFR) 140 [facility]2018-05-06 07:07:00 Test Item Value Reference Range Interpretation Comments Albumin Lvl (test code = Albumin Lvl) 2.9 3.5-5.0 [place] 704368-05-06 07:07:00 Test Item Value Reference Range Interpretation Comments Globulin (test code = Globulin) 4.4 2.7-4.2 [place] 704368-05-06 07:07:00 Test Item Value Reference Range Interpretation Comments A/G Ratio (test code = A/G Ratio) 0.7 1 0.7-1.6 [place] 704368-05-06 07:07:00 Test Item Value Reference Range Interpretation Comments Bili Total (test code = Bili Total) 0.4 0.2-1.3 [place] 704368-05-06 07:07:00 Test Item Value Reference Range Interpretation Comments Alk Phos (test code = Alk Phos) 71 39-136 [place] 704368-05-06 07:07:00 Test Item Value Reference Range Interpretation Comments AST (test code = AST) 15 See_Comment [Auto mated message] The system which ge nerated this result transmit lester reference range : <=37. The reference range was not used to interpr et this result as dany l/abnormal. [facility]2018-05-06 07:07:00 Test Item Value Reference Range Interpretation Comments ALT (test code = ALT) 28 See_Comment [Auto mated message] The system which ge nerated this result transmit lester reference range : <=65. The reference range was not used to interpr et this result as dany l/abnormal. [place] 704368-05-06 07:07:00 Test Item Value Reference Range Interpretation Comments Potassium Lvl (test code = Potassium 4.4 3.5-5.1 Lvl) [place] 704368-05-06 07:07:00 Test Item Value Reference Range Interpretation Comments Sodium Lvl (test code = Sodium Lvl) 147 135-145 [place] 704368-05-06 07:07:00 Test Item Value Reference Range Interpretation Comments CO2 (test code = CO2) 25 24-32 [place] 704368-05-06 07:07:00 Test Item Value Reference Range Interpretation Comments Chloride Lvl (test code = Chloride Lvl) 114 95-109 [place] 704368-05-06 07:07:00 Test Item Value Reference Range Interpretation Comments B/C Ratio (test code = B/C Ratio) 16 1 6-25 [place] 704368-05-06 07:07:00 Test Item Value Reference Range Interpretation Comments Calcium Lvl (test code = Calcium Lvl) 8.7 8.5-10.5 [place] 704368-05-06 07:07:00 Test Item Value Reference Range Interpretation Comments AGAP (test code = AGAP) 12.4 10.0-20.0 [place] 704368-05-06 07:07:00 Test Item Value Reference Range Interpretation Comments Total Protein (test code = Total 7.3 6.4-8.4 Protein) [facility] TylerYbafisyKQKILYJFYE2423-95-19 07:07:00 Test Item Value Reference Range Interpretation Comments Platelet (test code = Platelet) 345 133-450 [place] 475008-05-06 07:07:00 Test Item Value Reference Range Interpretation Comments MPV (test code = MPV) 8.7 7.4-10.4 [place] 475008-05-06 07:07:00 Test Item Value Reference Range Interpretation Comments WBC (test code = WBC) 6.9 3.7-10.4 [facility] TylerLwtbjcxOQSPIROVPI0148-04-74 07:07:00 Test Item Value Reference Range Interpretation Comments RBC (test code = RBC) 5.30 4.70-6.10 [facility] TylerSurbqcvHJFCJQBTWX6175-02-62 07:07:00 Test Item Value Reference Range Interpretation Comments MCHC (test code = MCHC) 32.8 32.0-36.0 [facility] TylerYnuxzwgXPSKYUZEOH8201-63-97 07:07:00 Test Item Value Reference Range Interpretation Comments MCH (test code = MCH) 27.9 pg 27.0-31.0 [facility] TylerXrrvsnpVEXOKYQWVY9826-30-90 07:07:00 Test Item Value Reference Range Interpretation Comments Hgb (test code = Hgb) 14.8 14.0-18.0 [facility] TylerPmxvzveHVFMJHZXUV5812-34-14 07:07:00 Test Item Value Reference Range Interpretation Comments MCV (test code = MCV) 85.0 80.0-94.0 [facility] TylerSiqahjlHKBLTZNFJB7844-45-47 07:07:00 Test Item Value Reference Range Interpretation Comments Hct (test code = Hct) 45.1 42.0-54.0 [facility] TylerUsuzeuiCLHSHAMUAC6298-68-80 07:07:00 Test Item Value Reference Range Interpretation Comments RDW (test code = RDW) 17.5 11.5-14.5 [facility] TylerLcmpntrMYXKBODGOW5498-33-63 07:07:00 Test Item Value Reference Range Interpretation Comments Eosinophils # (test code 0.2 See_Comment [A utomated message] The = Eosinophils #) system whic h generated this result tra nsmitted reference range : <=0.5. The reference r boubacar was not used to int erpret this result as normal/abnormal . [facility] TylerBxweqenXTZCDYQIYI7563-95-81 07:07:00 Test Item Value Reference Range Interpretation Comments Lymphocytes # (test code = Lymphocytes 2.0 1.0-5.5 #) [facility] TylerXccjweoNZBYMOYSED8145-80-95 07:07:00 Test Item Value Reference Range Interpretation Comments Monocytes # (test code 0.7 See_Comment [Aut omated message] The = Monocytes #) system which generated this result tra nsmitted reference range : <=0.8. The reference r boubacar was not used to int erpret this result as normal/abnormal . [facility] TylerEmwafmsFKUKDBUAFX9365-42-68 07:07:00 Test Item Value Reference Range Interpretation Comments Eosinophils (test code = 2.4 See_Comment [A utomated message] The Eosinophils) system which ge nerated this result tra nsmitted reference range : <=4.0. The reference r boubacar was not used to int erpret this result as normal/abnormal . [facility] TylerXwfmzipHVFZJYNHPD3694 07:07:00 Test Item Value Reference Range Interpretation Comments Basophils (test code = 0.6 See_Comment [Aut omated message] The Basophils) system which ge nerated this result tra nsmitted reference range : <=1.0. The reference r boubacar was not used to int erpret this result as normal/abnormal . [facility] TylerNnznosfQNHUQQRRMF3091-75-77 07:07:00 Test Item Value Reference Range Interpretation Comments Segs-Bands # (test code = Segs-Bands #) 4.0 1.5-8.1 [facility] TylerIrllcwzUMOVLLQWMS7714-99-80 07:07:00 Test Item Value Reference Range Interpretation Comments Monocytes (test code = Monocytes) 10.4 2.0-12.0 [facility] TylerSaxbnnyKXCNTPVZSV0023-54-68 07:07:00 Test Item Value Reference Range Interpretation Comments RBC Morph (test code = Normal (11/17/17 2:07 AM) RBC Morph) [facility] TylerJuyqzwhDAUYEOUZAT1947-57-46 07:07:00 Test Item Value Reference Range Interpretation Comments Segs (test code = Segs) 58.1 45.0-75.0 [facility] TylerHkyhsiyFHYNQQTMYG0290-08-52 07:07:00 Test Item Value Reference Range Interpretation Comments Plt Morph (test code = Normal (11/17/17 2:07 AM) Plt Morph) [facility] TylerVzgntbdJCGKRQMSID8072-71-89 07:07:00 Test Item Value Reference Range Interpretation Comments Lymphocytes (test code = Lymphocytes) 28.5 20.0-40.0 [facility]2018-05-06 07:07:00 Test Item Value Reference Range Interpretation Comments Glucose Lvl (test code = Glucose Lvl) 74 70-99 [facility]2018-05-06 07:07:00 Test Item Value Reference Range Interpretation Comments BUN (test code = BUN) 12 7-22 [place] 704368-05-06 07:07:00 Test Item Value Reference Range Interpretation Comments Creatinine Lvl (test code = Creatinine 0.75 0.50-1.40 Lvl) [place] 704368-05-06 07:07:00 Test Item Value Reference Range Interpretation Comments eGFR (test code = eGFR) 140 [place] 704368-05-06 07:07:00 Test Item Value Reference Range Interpretation Comments Albumin Lvl (test code = Albumin Lvl) 2.9 3.5-5.0 [place] 704368-05-06 07:07:00 Test Item Value Reference Range Interpretation Comments Globulin (test code = Globulin) 4.4 2.7-4.2 [place] 704368-05-06 07:07:00 Test Item Value Reference Range Interpretation Comments A/G Ratio (test code = A/G Ratio) 0.7 1 0.7-1.6 [place] [address]-05-06 07:07:00 Test Item Value Reference Range Interpretation Comments Bili Total (test code = Bili Total) 0.4 0.2-1.3 [place] [address]-05-06 07:07:00 Test Item Value Reference Range Interpretation Comments Alk Phos (test code = Alk Phos) 71 39-136 [place] 704368-05-06 07:07:00 Test Item Value Reference Range Interpretation Comments AST (test code = AST) 15 See_Comment [Auto mated message] The system which ge nerated this result transmit lester reference range : <=37. The reference range was not used to interpr et this result as dany l/abnormal. [place] 704368-05-06 07:07:00 Test Item Value Reference Range Interpretation Comments ALT (test code = ALT) 28 See_Comment [Auto mated message] The system which ge nerated this result transmit lester reference range : <=65. The reference range was not used to interpr et this result as dany l/abnormal. [place] 704368-05-06 07:07:00 Test Item Value Reference Range Interpretation Comments Potassium Lvl (test code = Potassium 4.4 3.5-5.1 Lvl) [place] [address]-05-06 07:07:00 Test Item Value Reference Range Interpretation Comments Sodium Lvl (test code = Sodium Lvl) 147 135-145 [facility]2018-05-06 07:07:00 Test Item Value Reference Range Interpretation Comments CO2 (test code = CO2) 25 24-32 [place] 704368-05-06 07:07:00 Test Item Value Reference Range Interpretation Comments Chloride Lvl (test code = Chloride Lvl) 114 95-109 [place] 704368-05-06 07:07:00 Test Item Value Reference Range Interpretation Comments B/C Ratio (test code = B/C Ratio) 16 1 6-25 [place] 704368-05-06 07:07:00 Test Item Value Reference Range Interpretation Comments Calcium Lvl (test code = Calcium Lvl) 8.7 8.5-10.5 [place] 704368-05-06 07:07:00 Test Item Value Reference Range Interpretation Comments AGAP (test code = AGAP) 12.4 10.0-20.0 [facility]2018-05-06 07:07:00 Test Item Value Reference Range Interpretation Comments Total Protein (test code = Total 7.3 6.4-8.4 Protein) [facility] TylerCoqobenFYSYUOKMPU2681-81-43 07:07:00 Test Item Value Reference Range Interpretation Comments Platelet (test code = Platelet) 345 133-450 [facility] TylerUrmepptCARASFWYRN7731-73-07 07:07:00 Test Item Value Reference Range Interpretation Comments MPV (test code = MPV) 8.7 7.4-10.4 [place] 475008-05-06 07:07:00 Test Item Value Reference Range Interpretation Comments WBC (test code = WBC) 6.9 3.7-10.4 [place] [address]-05-06 07:07:00 Test Item Value Reference Range Interpretation Comments RBC (test code = RBC) 5.30 4.70-6.10 [facility] TylerUmaljfpGQIVEKICUJ2247-18-45 07:07:00 Test Item Value Reference Range Interpretation Comments MCHC (test code = MCHC) 32.8 32.0-36.0 [place] 475008-05-06 07:07:00 Test Item Value Reference Range Interpretation Comments MCH (test code = MCH) 27.9 pg 27.0-31.0 [facility] TylerTvsawkoCADUJKBDZC4327-94-03 07:07:00 Test Item Value Reference Range Interpretation Comments Hgb (test code = Hgb) 14.8 14.0-18.0 [facility] TylerPrpaesqLRXBJPKXXX5091-34-19 07:07:00 Test Item Value Reference Range Interpretation Comments MCV (test code = MCV) 85.0 80.0-94.0 [facility] TylerBxhjlgcJRWLCZTIOM9557-63-10 07:07:00 Test Item Value Reference Range Interpretation Comments Hct (test code = Hct) 45.1 42.0-54.0 [facility] TylerCjygnqwKSCBUQBKDR2548-52-08 07:07:00 Test Item Value Reference Range Interpretation Comments RDW (test code = RDW) 17.5 11.5-14.5 [facility] TylerOlogohmPFPKGLYRFR4877-30-42 07:07:00 Test Item Value Reference Range Interpretation Comments Eosinophils # (test code 0.2 See_Comment [A utomated message] The = Eosinophils #) system whic h generated this result tra nsmitted reference range : <=0.5. The reference r boubacar was not used to int erpret this result as normal/abnormal . [facility]PxhwnuoRWGPIABPMZ4498-64-93 07:07:00 Test Item Value Reference Range Interpretation Comments Lymphocytes # (test code = Lymphocytes 2.0 1.0-5.5 #) [facility] TylerTfrzwieBHIDXNDRRU1117-21-76 07:07:00 Test Item Value Reference Range Interpretation Comments Monocytes # (test code 0.7 See_Comment [Aut omated message] The = Monocytes #) system which generated this result tra nsmitted reference range : <=0.8. The reference r boubacar was not used to int erpret this result as normal/abnormal . [facility] TylerBwiosjzMYELLVGRXG6334-24-92 07:07:00 Test Item Value Reference Range Interpretation Comments Eosinophils (test code = 2.4 See_Comment [A utomated message] The Eosinophils) system which ge nerated this result tra nsmitted reference range : <=4.0. The reference r boubacar was not used to int erpret this result as normal/abnormal . [facility] TylerIkcklicRZUHERLXJR2128-37-49 07:07:00 Test Item Value Reference Range Interpretation Comments Basophils (test code = 0.6 See_Comment [Aut omated message] The Basophils) system which ge nerated this result tra nsmitted reference range : <=1.0. The reference r boubacar was not used to int erpret this result as normal/abnormal . [facility] TylerOvzwhnhWTSISFIYGD7931-08-69 07:07:00 Test Item Value Reference Range Interpretation Comments Segs-Bands # (test code = Segs-Bands #) 4.0 1.5-8.1 [facility] TylerUzidvrzHBVQBFVHGK4304-59-22 07:07:00 Test Item Value Reference Range Interpretation Comments Monocytes (test code = Monocytes) 10.4 2.0-12.0 [facility] TylerEywpxvqJMUINBRFUH5862-80-53 07:07:00 Test Item Value Reference Range Interpretation Comments RBC Morph (test code = Normal (11/17/17 2:07 AM) RBC Morph) [facility] TylerZdzgzuuFXLSZEZBIW4096-98-62 07:07:00 Test Item Value Reference Range Interpretation Comments Segs (test code = Segs) 58.1 45.0-75.0 [facility] TylerZvadkghGLMVEGNNHB2288-86-99 07:07:00 Test Item Value Reference Range Interpretation Comments Plt Morph (test code = Normal (11/17/17 2:07 AM) Plt Morph) [facility] TylerInfnivnYZVYWTHSLH2752-16-74 07:07:00 Test Item Value Reference Range Interpretation Comments Lymphocytes (test code = Lymphocytes) 28.5 20.0-40.0 [facility]2018-05-06 07:07:00 Test Item Value Reference Range Interpretation Comments Glucose Lvl (test code = Glucose Lvl) 74 70-99 [facility]2018-05-06 07:07:00 Test Item Value Reference Range Interpretation Comments BUN (test code = BUN) 12 7-22 [place] 704368-05-06 07:07:00 Test Item Value Reference Range Interpretation Comments Creatinine Lvl (test code = Creatinine 0.75 0.50-1.40 Lvl) [facility]2018-05-06 07:07:00 Test Item Value Reference Range Interpretation Comments eGFR (test code = eGFR) 140 [facility]2018-05-06 07:07:00 Test Item Value Reference Range Interpretation Comments Albumin Lvl (test code = Albumin Lvl) 2.9 3.5-5.0 [place] 704368-05-06 07:07:00 Test Item Value Reference Range Interpretation Comments Globulin (test code = Globulin) 4.4 2.7-4.2 [place] 704368-05-06 07:07:00 Test Item Value Reference Range Interpretation Comments A/G Ratio (test code = A/G Ratio) 0.7 1 0.7-1.6 [place] 704368-05-06 07:07:00 Test Item Value Reference Range Interpretation Comments Bili Total (test code = Bili Total) 0.4 0.2-1.3 [place] 704368-05-06 07:07:00 Test Item Value Reference Range Interpretation Comments Alk Phos (test code = Alk Phos) 71 39-136 [place] 704368-05-06 07:07:00 Test Item Value Reference Range Interpretation Comments AST (test code = AST) 15 See_Comment [Auto mated message] The system which ge nerated this result transmit lester reference range : <=37. The reference range was not used to interpr et this result as dany l/abnormal. [place] 704368-05-06 07:07:00 Test Item Value Reference Range Interpretation Comments ALT (test code = ALT) 28 See_Comment [Auto mated message] The system which ge nerated this result transmit lester reference range : <=65. The reference range was not used to interpr et this result as dany l/abnormal. [place] 704368-05-06 07:07:00 Test Item Value Reference Range Interpretation Comments Potassium Lvl (test code = Potassium 4.4 3.5-5.1 Lvl) [facility]2018-05-06 07:07:00 Test Item Value Reference Range Interpretation Comments Sodium Lvl (test code = Sodium Lvl) 147 135-145 [place] 704368-05-06 07:07:00 Test Item Value Reference Range Interpretation Comments CO2 (test code = CO2) 25 24-32 [facility]2018-05-06 07:07:00 Test Item Value Reference Range Interpretation Comments Chloride Lvl (test code = Chloride Lvl) 114 95-109 [place] 704368-05-06 07:07:00 Test Item Value Reference Range Interpretation Comments B/C Ratio (test code = B/C Ratio) 16 1 6-25 [facility]2018-05-06 07:07:00 Test Item Value Reference Range Interpretation Comments Calcium Lvl (test code = Calcium Lvl) 8.7 8.5-10.5 [facility]2018-05-06 07:07:00 Test Item Value Reference Range Interpretation Comments AGAP (test code = AGAP) 12.4 10.0-20.0 [facility]2018-05-06 07:07:00 Test Item Value Reference Range Interpretation Comments Total Protein (test code = Total 7.3 6.4-8.4 Protein) [facility] TylerYffsfjtPEYLMNBWIL2005-91-79 07:07:00 Test Item Value Reference Range Interpretation Comments Platelet (test code = Platelet) 345 133-450 [facility] TylerGdvhupdHRCFTTDYGP8510-06-22 07:07:00 Test Item Value Reference Range Interpretation Comments MPV (test code = MPV) 8.7 7.4-10.4 [facility] TylerFqhmxiaMNIRPANHHL6694-91-21 07:07:00 Test Item Value Reference Range Interpretation Comments WBC (test code = WBC) 6.9 3.7-10.4 [facility] TylerNgrkeynSVZXTUAJWZ3196-54-74 07:07:00 Test Item Value Reference Range Interpretation Comments RBC (test code = RBC) 5.30 4.70-6.10 [facility] TylerOasfusiSSVAVKJYWO8620-33-40 07:07:00 Test Item Value Reference Range Interpretation Comments MCHC (test code = MCHC) 32.8 32.0-36.0 [facility] TylerRtedunqVWRMFDIGTE6808-90-31 07:07:00 Test Item Value Reference Range Interpretation Comments MCH (test code = MCH) 27.9 pg 27.0-31.0 [facility] TylerYkyjtalWRDPUNZTCY2576-91-26 07:07:00 Test Item Value Reference Range Interpretation Comments Hgb (test code = Hgb) 14.8 14.0-18.0 [facility] TylerLyvrrqeJBIZWFOTWS0644-09-60 07:07:00 Test Item Value Reference Range Interpretation Comments MCV (test code = MCV) 85.0 80.0-94.0 [facility] TylerKcprpcwRKMEOMHDQC1871-83-65 07:07:00 Test Item Value Reference Range Interpretation Comments Hct (test code = Hct) 45.1 42.0-54.0 [facility] TylerUbpntpqLUIFVGCKPF9388-42-63 07:07:00 Test Item Value Reference Range Interpretation Comments RDW (test code = RDW) 17.5 11.5-14.5 [facility] TylerAddxydlORIXHZIBQW8712-99-48 07:07:00 Test Item Value Reference Range Interpretation Comments Eosinophils # (test code 0.2 See_Comment [A utomated message] The = Eosinophils #) system [facility] h generated this result tra nsmitted reference range : <=0.5. The reference r boubacar was not used to int erpret this result as normal/abnormal . [facility] TylerGwudnpnDDYPQHXDNZ5825-03-67 07:07:00 Test Item Value Reference Range Interpretation Comments Lymphocytes # (test code = Lymphocytes 2.0 1.0-5.5 #) [facility] TylerJzpuhjaVAXHVAADUO9957-15-18 07:07:00 Test Item Value Reference Range Interpretation Comments Monocytes # (test code 0.7 See_Comment [Aut omated message] The = Monocytes #) system which generated this result tra nsmitted reference range : <=0.8. The reference r boubacar was not used to int erpret this result as normal/abnormal . [facility] TylerHmaslwkEYBRFVACAE4512-79-16 07:07:00 Test Item Value Reference Range Interpretation Comments Eosinophils (test code = 2.4 See_Comment [A utomated message] The Eosinophils) system which ge nerated this result tra nsmitted reference range : <=4.0. The reference r boubacar was not used to int erpret this result as normal/abnormal . [facility] TylerJqnrhasQLLWXCQEPJ9269-30-38 07:07:00 Test Item Value Reference Range Interpretation Comments Basophils (test code = 0.6 See_Comment [Aut omated message] The Basophils) system which ge nerated this result tra nsmitted reference range : <=1.0. The reference r boubacar was not used to int erpret this result as normal/abnormal . [facility] TylerAavewgrUOVCIYCOPA2094-54-17 07:07:00 Test Item Value Reference Range Interpretation Comments Segs-Bands # (test code = Segs-Bands #) 4.0 1.5-8.1 [facility] TylerSffpxqxFABBFLJXVL3766-19-11 07:07:00 Test Item Value Reference Range Interpretation Comments Monocytes (test code = Monocytes) 10.4 2.0-12.0 [facility] TylerUxzcwlcPKSDHUOBIX9096-56-57 07:07:00 Test Item Value Reference Range Interpretation Comments RBC Morph (test code = Normal (11/17/17 2:07 AM) RBC Morph) [facility] TylerBflnjjlCRRTHAZJFZ1047-90-96 07:07:00 Test Item Value Reference Range Interpretation Comments Segs (test code = Segs) 58.1 45.0-75.0 [facility] TylerNhpjwydSSGFCBZQCR4139-13-52 07:07:00 Test Item Value Reference Range Interpretation Comments Plt Morph (test code = Normal (11/17/17 2:07 AM) Plt Morph) [facility] TylerIksmvtbFBEMDIXJRP7194-82-84 07:07:00 Test Item Value Reference Range Interpretation Comments Lymphocytes (test code = Lymphocytes) 28.5 20.0-40.0 [facility] TylerIrouguuFBULIPPLTA9677-63-77 16:07:00 Test Item Value Reference Range Interpretation Comments Basophils # (test code 0.1 See_Comment [Aut omated message] The = Basophils #) system which generated this result tra nsmitted reference range : <=0.2. The reference r boubacar was not used to int erpret this result as normal/abnormal . [facility] TylerOmzcaorPJKXFCBOUU3051-53-43 16:07:00 Test Item Value Reference Range Interpretation Comments Polychrom (test code = Moderate *ABN*(11/16/17 Polychrom) 11:07 AM) [facility] TylerKgzyvixOGBQEHSQER6639-94-86 16:07:00 Test Item Value Reference Range Interpretation Comments Basophils # (test code 0.1 See_Comment [Aut omated message] The = Basophils #) system which generated this result tra nsmitted reference range : <=0.2. The reference r boubacar was not used to int erpret this result as normal/abnormal . [facility] TylerNwlcqkwCSMDPFBVFL3526-76-80 16:07:00 Test Item Value Reference Range Interpretation Comments Polychrom (test code = Moderate *ABN*(11/16/17 Polychrom) 11:07 AM) [facility] TylerXdeoqjlDCGTCCEDJV5081-70-39 16:07:00 Test Item Value Reference Range Interpretation Comments Basophils # (test code 0.1 See_Comment [Aut omated message] The = Basophils #) system which generated this result tra nsmitted reference range : <=0.2. The reference r boubacar was not used to int erpret this result as normal/abnormal . [facility] TylerCfphjybDPGFVICZJW4352-42-65 16:07:00 Test Item Value Reference Range Interpretation Comments Polychrom (test code = Moderate *ABN*(11/16/17 Polychrom) 11:07 AM) [facility] TylerLxbboaeXQSUZNEWYT0761-62-31 16:07:00 Test Item Value Reference Range Interpretation Comments Basophils # (test code 0.1 See_Comment [Aut omated message] The = Basophils #) system which generated this result tra nsmitted reference range : <=0.2. The reference r boubacar was not used to int erpret this result as normal/abnormal . [facility] TylerGiqojfhSRENFHQQCO4213-56-36 16:07:00 Test Item Value Reference Range Interpretation Comments Polychrom (test code = Moderate *ABN*(11/16/17 Polychrom) 11:07 AM) [facility] TylerXomkgvrLQWUCPHVSJ9723-75-45 16:07:00 Test Item Value Reference Range Interpretation Comments Basophils # (test code 0.1 See_Comment [Aut omated message] The = Basophils #) system which generated this result tra nsmitted reference range : <=0.2. The reference r boubacar was not used to int erpret this result as normal/abnormal . [facility] TylerBudovieHSHYCFUCQW1707-20-93 16:07:00 Test Item Value Reference Range Interpretation Comments Polychrom (test code = Moderate *ABN*(11/16/17 Polychrom) 11:07 AM) [facility] TylerBfvmuokTUJZMRHTUW3385-09-74 16:07:00 Test Item Value Reference Range Interpretation Comments Basophils # (test code 0.1 See_Comment [Aut omated message] The = Basophils #) system which generated this result tra nsmitted reference range : <=0.2. The reference r boubacar was not used to int erpret this result as normal/abnormal . [facility] TylerQaztfndFBAIJMYJRZ1520-68-24 16:07:00 Test Item Value Reference Range Interpretation Comments Polychrom (test code = Moderate *ABN*(11/16/17 Polychrom) 11:07 AM) [place] [id number] 06:43:00 Test Item Value Reference Range Interpretation Comments Vanco Tr TND (test code = Vanco Tr TND) * [place] 27444018-05-05 06:43:00 Test Item Value Reference Range Interpretation Comments Vanco Tr (test code = Vanco Tr) 22.3 [facility] KazugihENLDGGKQHT0922-24-70 06:43:00 Test Item Value Reference Range Interpretation Comments Vanco Tr TND (test code = Vanco Tr TND) * [facility] LlvdljgBTUDAERJGS2725-89-77 06:43:00 Test Item Value Reference Range Interpretation Comments Vanco Tr (test code = Vanco Tr) 22.3 [facility] QvatvkmSBGSXDLTYA4050-50-47 06:43:00 Test Item Value Reference Range Interpretation Comments Vanco Tr TND (test code = Vanco Tr TND) * [facility] ZyahrbbFGNZWORRCE6862-03-33 06:43:00 Test Item Value Reference Range Interpretation Comments Vanco Tr (test code = Vanco Tr) 22.3 [facility] HziufprQIEURDRYYN8032-54-97 06:43:00 Test Item Value Reference Range Interpretation Comments Vanco Tr TND (test code = Vanco Tr TND) * [facility] PlnoeazECCSMNQVAE9517-15-05 06:43:00 Test Item Value Reference Range Interpretation Comments Vanco Tr (test code = Vanco Tr) 22.3 [facility] LfzbguwZBRLNUKMBU5408-89-55 06:43:00 Test Item Value Reference Range Interpretation Comments Vanco Tr TND (test code = Vanco Tr TND) * [facility] SmtbxxwGLLOHZSNVT4404-25-58 06:43:00 Test Item Value Reference Range Interpretation Comments Vanco Tr (test code = Vanco Tr) 22.3 [facility] SgrkawoSKONUBEPFJ2810-76-80 06:43:00 Test Item Value Reference Range Interpretation Comments Vanco Tr TND (test code = Vanco Tr TND) * [facility] HnfvzakFCSAEBGOFI0962-41-59 06:43:00 Test Item Value Reference Range Interpretation Comments Vanco Tr (test code = Vanco Tr) 22.3 [facility] HermannCHEM STPEZ0945-03-77 11:45:00 Test Item Value Reference Range Interpretation Comments Magnesium Lvl (test code = Magnesium 2.3 1.8-2.4 Lvl) [facility] HermannCHEM DRQYS7260-73-04 11:45:00 Test Item Value Reference Range Interpretation Comments Phosphorus (test code = Phosphorus) 3.5 2.5-4.5 [facility] TylerKmbehvoKFDCNKUERD1423-45-25 11:45:00 Test Item Value Reference Range Interpretation Comments PT (test code = PT) 14.0 s 12.0-14.7 [facility] TylerKmxeuziZFEQRDWNXT4377-05-96 11:45:00 Test Item Value Reference Range Interpretation Comments PTT (test code = PTT) 37.6 s 22.9-35.8 [facility] TylerMjrwxozMPGYPOGNBX0334-11-01 11:45:00 Test Item Value Reference Range Interpretation Comments INR (test code = INR) 1.08 1 0.85-1.17 [facility]GbjhsufYNHGRLOFQL4239-48-24 11:45:00 Test Item Value Reference Range Interpretation Comments C-REACTIVE PROTEIN (test code = 13.1 C-REACTIVE PROTEIN) [facility]viewNhsqeteFLHREDKPYC0126-23-60 11:45:00 Test Item Value Reference Range Interpretation Comments Prealbumin (test code = Prealbumin) 25.2 18.0-45.0 [facility]2018-05-04 11:45:00 Test Item Value Reference Range Interpretation Comments Magnesium Lvl (test code = Magnesium 2.3 1.8-2.4 Lvl) [facility]2018-05-04 11:45:00 Test Item Value Reference Range Interpretation Comments Phosphorus (test code = Phosphorus) 3.5 2.5-4.5 [facility] TylerAstexdjZGZJKQRSCG7573-55-71 11:45:00 Test Item Value Reference Range Interpretation Comments PT (test code = PT) 14.0 s 12.0-14.7 [facility] TylerWgtdbnsZTRZCQMGVW3195-25-82 11:45:00 Test Item Value Reference Range Interpretation Comments PTT (test code = PTT) 37.6 s 22.9-35.8 [facility] TylerBrtmsehYMXIMAAQDH6319-57-01 11:45:00 Test Item Value Reference Range Interpretation Comments INR (test code = INR) 1.08 1 0.85-1.17 [facility]viewMfsmzleTVQGEYVJCN2438-04-51 11:45:00 Test Item Value Reference Range Interpretation Comments C-REACTIVE PROTEIN (test code = 13.1 C-REACTIVE PROTEIN) [facility]viewMxwhhkqOJWCBPYAVG2024-92-01 11:45:00 Test Item Value Reference Range Interpretation Comments Prealbumin (test code = Prealbumin) 25.2 18.0-45.0 [facility]2018-05-04 11:45:00 Test Item Value Reference Range Interpretation Comments Magnesium Lvl (test code = Magnesium 2.3 1.8-2.4 Lvl) [facility]2018-05-04 11:45:00 Test Item Value Reference Range Interpretation Comments Phosphorus (test code = Phosphorus) 3.5 2.5-4.5 [facility] TylerPvmlsmlQXCZIOKRPA8500-62-73 11:45:00 Test Item Value Reference Range Interpretation Comments PT (test code = PT) 14.0 s 12.0-14.7 [facility] TylerEtvibadAZIHXXBYHT0644-82-90 11:45:00 Test Item Value Reference Range Interpretation Comments PTT (test code = PTT) 37.6 s 22.9-35.8 [facility] TylerZbcbatnLQSUVUYLCO4607-91-65 11:45:00 Test Item Value Reference Range Interpretation Comments INR (test code = INR) 1.08 1 0.85-1.17 [facility]viewWpxzvcmNNFUGQPQJI4039-21-35 11:45:00 Test Item Value Reference Range Interpretation Comments C-REACTIVE PROTEIN (test code = 13.1 C-REACTIVE PROTEIN) [facility]viewOupavbmMLXPDYTFWR3683-23-61 11:45:00 Test Item Value Reference Range Interpretation Comments Prealbumin (test code = Prealbumin) 25.2 18.0-45.0 [facility]2018-05-04 11:45:00 Test Item Value Reference Range Interpretation Comments Magnesium Lvl (test code = Magnesium 2.3 1.8-2.4 Lvl) [facility]2018-05-04 11:45:00 Test Item Value Reference Range Interpretation Comments Phosphorus (test code = Phosphorus) 3.5 2.5-4.5 [facility] TylerMjohaudBGGZZZCKDI6233-35-85 11:45:00 Test Item Value Reference Range Interpretation Comments PT (test code = PT) 14.0 s 12.0-14.7 [facility] TylerEroyyneHKDJMJTZVK8355-86-37 11:45:00 Test Item Value Reference Range Interpretation Comments PTT (test code = PTT) 37.6 s 22.9-35.8 [facility] TylerKkwatbcJGRSEXIGEL1469-21-41 11:45:00 Test Item Value Reference Range Interpretation Comments INR (test code = INR) 1.08 1 0.85-1.17 [facility]viewXetgpbzJDIUVSOQCE7687-44-82 11:45:00 Test Item Value Reference Range Interpretation Comments C-REACTIVE PROTEIN (test code = 13.1 C-REACTIVE PROTEIN) [facility]viewVvjfvrjPIZVRLCFEK2802-00-57 11:45:00 Test Item Value Reference Range Interpretation Comments Prealbumin (test code = Prealbumin) 25.2 18.0-45.0 [facility]2018-05-04 11:45:00 Test Item Value Reference Range Interpretation Comments Magnesium Lvl (test code = Magnesium 2.3 1.8-2.4 Lvl) [facility]2018-05-04 11:45:00 Test Item Value Reference Range Interpretation Comments Phosphorus (test code = Phosphorus) 3.5 2.5-4.5 [facility] TylerAsipggkEHBPKUBVUK4656-33-46 11:45:00 Test Item Value Reference Range Interpretation Comments PT (test code = PT) 14.0 s 12.0-14.7 [facility] TylerCwhgrciPYPBQARJYY0197-71-57 11:45:00 Test Item Value Reference Range Interpretation Comments PTT (test code = PTT) 37.6 s 22.9-35.8 [facility] TylerEmmdnrhDIMJUSMXVT4902-16-84 11:45:00 Test Item Value Reference Range Interpretation Comments INR (test code = INR) 1.08 1 0.85-1.17 [facility]viewDvyoyrcWSUBQACKRA7399-60-41 11:45:00 Test Item Value Reference Range Interpretation Comments C-REACTIVE PROTEIN (test code = 13.1 C-REACTIVE PROTEIN) [facility]viewJvmrxooWAYGETHIGU6787-07-14 11:45:00 Test Item Value Reference Range Interpretation Comments Prealbumin (test code = Prealbumin) 25.2 18.0-45.0 [facility]2018-05-04 11:45:00 Test Item Value Reference Range Interpretation Comments Magnesium Lvl (test code = Magnesium 2.3 1.8-2.4 Lvl) [facility]2018-05-04 11:45:00 Test Item Value Reference Range Interpretation Comments Phosphorus (test code = Phosphorus) 3.5 2.5-4.5 [facility] TylerSqsocraEAGSXVSBAW3736-12-85 11:45:00 Test Item Value Reference Range Interpretation Comments PT (test code = PT) 14.0 s 12.0-14.7 [facility] TylerBkmxqdxXSHKINLSHT9263-21-11 11:45:00 Test Item Value Reference Range Interpretation Comments PTT (test code = PTT) 37.6 s 22.9-35.8 [facility] TylerOeaovlyENHUMEXLKT6669-37-00 11:45:00 Test Item Value Reference Range Interpretation Comments INR (test code = INR) 1.08 1 0.85-1.17 [facility]viewFhzjkumSDTXTLZDYT6535-29-06 11:45:00 Test Item Value Reference Range Interpretation Comments C-REACTIVE PROTEIN (test code = 13.1 C-REACTIVE PROTEIN) [place] [address]-05-04 11:45:00 Test Item Value Reference Range Interpretation Comments Prealbumin (test code = Prealbumin) 25.2 18.0-45.0 [facility]2018-05-04 03:06:00 Test Item Value Reference Range Interpretation Comments Lactic Acid Lvl (test code = Lactic 0.9 0.5-2.2 Acid Lvl) [facility] TylerMaxlghvDBAFVRGVLY7820-63-62 03:06:00 Test Item Value Reference Range Interpretation Comments Sed Rate (test code = 5 See_Comment [Auto mated message] The Sed Rate) system which ge nerated this result transmit lester reference range : <=15. The reference range was not used to interpr et this result as dany l/abnormal. [facility]viewEgrzcklGBKABAAICJ5398-23-17 03:06:00 Test Item Value Reference Range Interpretation Comments C-REACTIVE PROTEIN (test code = 15.8 C-REACTIVE PROTEIN) [facility]2018-05-04 03:06:00 Test Item Value Reference Range Interpretation Comments Lactic Acid Lvl (test code = Lactic 0.9 0.5-2.2 Acid Lvl) [facility] TylerIezcbvaYJKGWUIGVY4744-03-37 03:06:00 Test Item Value Reference Range Interpretation Comments Sed Rate (test code = 5 See_Comment [Auto mated message] The Sed Rate) system which ge nerated this result transmit lester reference range : <=15. The reference range was not used to interpr et this result as dany l/abnormal. [place] [address]-05-04 03:06:00 Test Item Value Reference Range Interpretation Comments C-REACTIVE PROTEIN (test code = 15.8 C-REACTIVE PROTEIN) [facility]2018-05-04 03:06:00 Test Item Value Reference Range Interpretation Comments Lactic Acid Lvl (test code = Lactic 0.9 0.5-2.2 Acid Lvl) [facility]CmjxoitPTHBMCXEYP8400-31-29 03:06:00 Test Item Value Reference Range Interpretation Comments Sed Rate (test code = 5 See_Comment [Auto mated message] The Sed Rate) system which ge nerated this result transmit lester reference range : <=15. The reference range was not used to interpr et this result as dany l/abnormal. [id number] 03:06:00 Test Item Value Reference Range Interpretation Comments C-REACTIVE PROTEIN (test code = 15.8 C-REACTIVE PROTEIN) [facility]2018-05-04 03:06:00 Test Item Value Reference Range Interpretation Comments Lactic Acid Lvl (test code = Lactic 0.9 0.5-2.2 Acid Lvl) [facility] TylerGyxlkymXSAEDBBKLS8858-84-08 03:06:00 Test Item Value Reference Range Interpretation Comments Sed Rate (test code = 5 See_Comment [Auto mated message] The Sed Rate) system which ge nerated this result transmit lester reference range : <=15. The reference range was not used to interpr et this result as dany l/abnormal. [id number] 03:06:00 Test Item Value Reference Range Interpretation Comments C-REACTIVE PROTEIN (test code = 15.8 C-REACTIVE PROTEIN) [facility]2018-05-04 03:06:00 Test Item Value Reference Range Interpretation Comments Lactic Acid Lvl (test code = Lactic 0.9 0.5-2.2 Acid Lvl) [facility] TylerNdbpwazGCEJQZKUKF1333-90-04 03:06:00 Test Item Value Reference Range Interpretation Comments Sed Rate (test code = 5 See_Comment [Auto mated message] The Sed Rate) system which ge nerated this result transmit lester reference range : <=15. The reference range was not used to interpr et this result as dnay l/abnormal. [facility]viewWqcnkxcJRGULGQIMW8440-86-79 03:06:00 Test Item Value Reference Range Interpretation Comments C-REACTIVE PROTEIN (test code = 15.8 C-REACTIVE PROTEIN) [facility]2018-05-04 03:06:00 Test Item Value Reference Range Interpretation Comments Lactic Acid Lvl (test code = Lactic 0.9 0.5-2.2 Acid Lvl) [facility] TylerAljrdujPZGZWYETWL0864-21-88 03:06:00 Test Item Value Reference Range Interpretation Comments Sed Rate (test code = 5 See_Comment [Auto mated message] The Sed Rate) system which ge nerated this result transmit lester reference range : <=15. The reference range was not used to interpr et this result as dany l/abnormal. [facility]NhopgjpRKNYCUQPEU8132-66-48 03:06:00 Test Item Value Reference Range Interpretation Comments C-REACTIVE PROTEIN (test code = 15.8 C-REACTIVE PROTEIN) [facility] TylerSizsqlvWZCLOEEBFX0680-03-08 00:44:00 Test Item Value Reference Range Interpretation Comments PT (test code = PT) 13.0 s 12.0-14.7 [facility] TylerFaddyqhFXNHLPCWHG7380-24-70 00:44:00 Test Item Value Reference Range Interpretation Comments INR (test code = INR) 0.98 1 0.85-1.17 [facility] TylerYufvjlqCPLQFZVMYY5216-21-39 00:44:00 Test Item Value Reference Range Interpretation Comments PTT (test code = PTT) 33.2 s 22.9-35.8 [facility] TylerUzcnrogGNLEICUUIR2692-33-92 00:44:00 Test Item Value Reference Range Interpretation Comments PT (test code = PT) 13.0 s 12.0-14.7 [facility] TylerEbheythYZQZJSXXOH1114-37-48 00:44:00 Test Item Value Reference Range Interpretation Comments INR (test code = INR) 0.98 1 0.85-1.17 [facility] TylerApyvsqaHSYNWGLUQX4042-14-04 00:44:00 Test Item Value Reference Range Interpretation Comments PTT (test code = PTT) 33.2 s 22.9-35.8 [facility] TylerBzgbjrqLZNSRTGJPD5237-28-93 00:44:00 Test Item Value Reference Range Interpretation Comments PT (test code = PT) 13.0 s 12.0-14.7 [facility] TylerDkazaitYVYDIJLWBN0847-92-71 00:44:00 Test Item Value Reference Range Interpretation Comments INR (test code = INR) 0.98 1 0.85-1.17 [facility] TylerRckaqmqPBEPARJULL2294-00-89 00:44:00 Test Item Value Reference Range Interpretation Comments PTT (test code = PTT) 33.2 s 22.9-35.8 [place] 475008-05-04 00:44:00 Test Item Value Reference Range Interpretation Comments PT (test code = PT) 13.0 s 12.0-14.7 [facility] TylerJoqiivlGQIMWZRFNG4603-36-70 00:44:00 Test Item Value Reference Range Interpretation Comments INR (test code = INR) 0.98 1 0.85-1.17 [facility] TylerZzanovbNWGYEAGXDO5177-81-50 00:44:00 Test Item Value Reference Range Interpretation Comments PTT (test code = PTT) 33.2 s 22.9-35.8 [facility] TylerNwepgvmJYMKUIJRCP6595-44-82 00:44:00 Test Item Value Reference Range Interpretation Comments PT (test code = PT) 13.0 s 12.0-14.7 [facility] TylerEnwluxbLTIXMVPVBD3041-52-41 00:44:00 Test Item Value Reference Range Interpretation Comments INR (test code = INR) 0.98 1 0.85-1.17 [facility] TylerTossmpkQHRJVAPTZJ0935-55-59 00:44:00 Test Item Value Reference Range Interpretation Comments PTT (test code = PTT) 33.2 s 22.9-35.8 [facility] TylerKgoyolaDRNGJFZWEF5029-05-70 00:44:00 Test Item Value Reference Range Interpretation Comments PT (test code = PT) 13.0 s 12.0-14.7 [facility] TylerDdyxrbiHMWJGPWYVB4887-69-14 00:44:00 Test Item Value Reference Range Interpretation Comments INR (test code = INR) 0.98 1 0.85-1.17 [facility] TylerUagyqydEMRXMYSAWV9588-77-11 00:44:00 Test Item Value Reference Range Interpretation Comments PTT (test code = PTT) 33.2 s 22.9-35.8 [facility] [id number] 23:51:00 Test Item Value Reference Range Interpretation Comments Antibody Scrn (test Negative (11/14/17 6:51 code = Antibody Scrn) PM) [facility] [id number] 23:51:00 Test Item Value Reference Range Interpretation Comments ABO/Rh (test code = ABO/Rh) AB POS [facility] [id number] 23:51:00 Test Item Value Reference Range Interpretation Comments Antibody Scrn (test Negative (11/14/17 6:51 code = Antibody Scrn) PM) [facility] [id number] 23:51:00 Test Item Value Reference Range Interpretation Comments ABO/Rh (test code = ABO/Rh) AB POS [facility] [id number] 23:51:00 Test Item Value Reference Range Interpretation Comments Antibody Scrn (test Negative (11/14/17 6:51 code = Antibody Scrn) PM) [facility] [id number] 23:51:00 Test Item Value Reference Range Interpretation Comments ABO/Rh (test code = ABO/Rh) AB POS [facility] [id number] 23:51:00 Test Item Value Reference Range Interpretation Comments Antibody Scrn (test Negative (11/14/17 6:51 code = Antibody Scrn) PM) [facility] [id number] 23:51:00 Test Item Value Reference Range Interpretation Comments ABO/Rh (test code = ABO/Rh) AB POS [facility] [id number] 23:51:00 Test Item Value Reference Range Interpretation Comments Antibody Scrn (test Negative (11/14/17 6:51 code = Antibody Scrn) PM) [facility] [id number] 23:51:00 Test Item Value Reference Range Interpretation Comments ABO/Rh (test code = ABO/Rh) AB POS [facility] [id number] 23:51:00 Test Item Value Reference Range Interpretation Comments Antibody Scrn (test Negative (11/14/17 6:51 code = Antibody Scrn) PM) [facility] [id number] 23:51:00 Test Item Value Reference Range Interpretation Comments ABO/Rh (test code = ABO/Rh) AB POS [facility] AND [id number] 23:35:00 Test Item Value Reference Range Interpretation Comments UA Urobilinogen (test code = UA 0.2 0.1-1.0 Urobilinogen) [facility] AND [id number] 23:35:00 Test Item Value Reference Range Interpretation Comments UA Nitrite (test code Negative (11/14/17 6:35 = UA Nitrite) PM) [facility] AND [id number] 23:35:00 Test Item Value Reference Range Interpretation Comments UA Glucose (test code Negative (11/14/17 6:35 = UA Glucose) PM) [facility] AND [id number] 23:35:00 Test Item Value Reference Range Interpretation Comments UA Ketones (test code Negative *NA*(11/14/17 = UA Ketones) 6:35 PM) [facility] AND [id number] 23:35:00 Test Item Value Reference Range Interpretation Comments UA Bili (test code = Negative *NA*(11/14/17 UA Bili) 6:35 PM) [facility] AND [id number] 23:35:00 Test Item Value Reference Range Interpretation Comments UA Blood (test code = Trace *ABN*(11/14/17 UA Blood) 6:35 PM) [facility] AND [id number] 23:35:00 Test Item Value Reference Range Interpretation Comments UA Leuk Est (test code Small *ABN*(11/14/17 6:35 = UA Leuk Est) PM) [facility] AND [id number] 23:35:00 Test Item Value Reference Range Interpretation Comments UA Spec Grav (test code = UA Spec 1.020 1 Grav) [facility] AND [id number] 23:35:00 Test Item Value Reference Range Interpretation Comments UA pH (test code = UA pH) 6.0 1 5.0-8.0 [facility] AND [id number] 23:35:00 Test Item Value Reference Range Interpretation Comments UA Color (test code = Yellow *NA*(11/14/17 6:35 UA Color) PM) [facility] AND [id number] 23:35:00 Test Item Value Reference Range Interpretation Comments UA Protein (test code = Trace *ABN*(11/14/17 UA Protein) 6:35 PM) [facility] AND [id number] 23:35:00 Test Item Value Reference Range Interpretation Comments UA Turbidity (test code Slight Cloudy (11/14/17 = UA Turbidity) 6:35 PM) [facility] AND [id number] 23:35:00 Test Item Value Reference Range Interpretation Comments UA Hyal Cast 0-2 (11/14/17 6:35 See_Comment [Automated message] (test code = UA PM) The system w [facility] Hyal Cast) generated this result transmitted ref erence range: <=2. The reference range was not used to int erpret this result as normal/abnormal . [facility] AND [id number] 23:35:00 Test Item Value Reference Range Interpretation Comments UA Bacteria (test code = UA Occasional /HPF Bacteria) [facility] AND [id number] 23:35:00 Test Item Value Reference Range Interpretation Comments UA RBC (test code 11-20 /HPF See_Comment [Automate d message] The = UA RBC) system which ge nerated this result tra nsmitted reference range : <=2. The reference range was not used to interpr et this result as normal/abnormal . [facility] AND [id number] 23:35:00 Test Item Value Reference Range Interpretation Comments UA Sq Epi (test code = UA Sq Occasional /LPF Epi) [facility] AND [id number] 23:35:00 Test Item Value Reference Range Interpretation Comments UA WBC (test code = UA WBC) 51-100 /HPF [facility] AND [id number] 23:35:00 Test Item Value Reference Range Interpretation Comments UA Urobilinogen (test code = UA 0.2 0.1-1.0 Urobilinogen) [facility] AND [id number] 23:35:00 Test Item Value Reference Range Interpretation Comments UA Nitrite (test code Negative (11/14/17 6:35 = UA Nitrite) PM) [facility] AND [id number] 23:35:00 Test Item Value Reference Range Interpretation Comments UA Glucose (test code Negative (11/14/17 6:35 = UA Glucose) PM) [facility] AND [id number] 23:35:00 Test Item Value Reference Range Interpretation Comments UA Ketones (test code Negative *NA*(11/14/17 = UA Ketones) 6:35 PM) [facility] AND [id number] 23:35:00 Test Item Value Reference Range Interpretation Comments UA Bili (test code = Negative *NA*(11/14/17 UA Bili) 6:35 PM) [facility] AND [id number] 23:35:00 Test Item Value Reference Range Interpretation Comments UA Blood (test code = Trace *ABN*(11/14/17 UA Blood) 6:35 PM) [facility] AND [id number] 23:35:00 Test Item Value Reference Range Interpretation Comments UA Leuk Est (test code Small *ABN*(11/14/17 6:35 = UA Leuk Est) PM) [facility] AND [id number] 23:35:00 Test Item Value Reference Range Interpretation Comments UA Spec Grav (test code = UA Spec 1.020 1 Grav) [facility] AND [id number] 23:35:00 Test Item Value Reference Range Interpretation Comments UA pH (test code = UA pH) 6.0 1 5.0-8.0 [facility] AND [id number] 23:35:00 Test Item Value Reference Range Interpretation Comments UA Color (test code = Yellow *NA*(11/14/17 6:35 UA Color) PM) [facility] AND [id number] 23:35:00 Test Item Value Reference Range Interpretation Comments UA Protein (test code = Trace *ABN*(11/14/17 UA Protein) 6:35 PM) [facility] AND [id number] 23:35:00 Test Item Value Reference Range Interpretation Comments UA Turbidity (test code Slight Cloudy (11/14/17 = UA Turbidity) 6:35 PM) [facility] AND [id number] 23:35:00 Test Item Value Reference Range Interpretation Comments UA Hyal Cast 0-2 (11/14/17 6:35 See_Comment [Automated message] (test code = UA PM) The system w [facility] Hyal [employer]) generated this result transmitted ref erence range: <=2. The reference range was not used to int erpret this result as normal/abnormal . [facility] AND [id number] 23:35:00 Test Item Value Reference Range Interpretation Comments UA Bacteria (test code = UA Occasional /HPF Bacteria) [facility] AND [id number] 23:35:00 Test Item Value Reference Range Interpretation Comments UA RBC (test code 11-20 /HPF See_Comment [Automate d message] The = UA RBC) system which ge nerated this result tra nsmitted reference range : <=2. The reference range was not used to interpr et this result as normal/abnormal . [facility] AND [id number] 23:35:00 Test Item Value Reference Range Interpretation Comments UA Sq Epi (test code = UA Sq Occasional /LPF Epi) [facility] AND [id number] 23:35:00 Test Item Value Reference Range Interpretation Comments UA WBC (test code = UA WBC) 51-100 /HPF [facility] AND [id number] 23:35:00 Test Item Value Reference Range Interpretation Comments UA Urobilinogen (test code = UA 0.2 0.1-1.0 Urobilinogen) [facility] AND [id number] 23:35:00 Test Item Value Reference Range Interpretation Comments UA Nitrite (test code Negative (11/14/17 6:35 = UA Nitrite) PM) [facility] AND [id number] 23:35:00 Test Item Value Reference Range Interpretation Comments UA Glucose (test code Negative (11/14/17 6:35 = UA Glucose) PM) [facility] AND [id number] 23:35:00 Test Item Value Reference Range Interpretation Comments UA Ketones (test code Negative *NA*(11/14/17 = UA Ketones) 6:35 PM) [facility] AND [id number] 23:35:00 Test Item Value Reference Range Interpretation Comments UA Bili (test code = Negative *NA*(11/14/17 UA Bili) 6:35 PM) [facility] AND [id number] 23:35:00 Test Item Value Reference Range Interpretation Comments UA Blood (test code = Trace *ABN*(11/14/17 UA Blood) 6:35 PM) [facility] AND [id number] 23:35:00 Test Item Value Reference Range Interpretation Comments UA Leuk Est (test code Small *ABN*(11/14/17 6:35 = UA Leuk Est) PM) [facility] AND [id number] 23:35:00 Test Item Value Reference Range Interpretation Comments UA Spec Grav (test code = UA Spec 1.020 1 Grav) [facility] AND [id number] 23:35:00 Test Item Value Reference Range Interpretation Comments UA pH (test code = UA pH) 6.0 1 5.0-8.0 [facility] [id number] 23:35:00 Test Item Value Reference Range Interpretation Comments UA Color (test code = Yellow *NA*(11/14/17 6:35 UA Color) PM) [facility] [id number] 23:35:00 Test Item Value Reference Range Interpretation Comments UA Protein (test code = Trace *ABN*(11/14/17 UA Protein) 6:35 PM) [facility] [id number] 23:35:00 Test Item Value Reference Range Interpretation Comments UA Turbidity (test code Slight Cloudy (11/14/17 = UA Turbidity) 6:35 PM) [facility] AND [id number] 23:35:00 Test Item Value Reference Range Interpretation Comments UA Hyal Cast 0-2 (11/14/17 6:35 See_Comment [Automated message] (test code = UA PM) The system w [employer] Hyal [employer]) generated this result transmitted ref erence range: <=2. The reference range was not used to int erpret this result as normal/abnormal . [facility] [id number] 23:35:00 Test Item Value Reference Range Interpretation Comments UA Bacteria (test code = UA Occasional /HPF Bacteria) [facility] [id number] 23:35:00 Test Item Value Reference Range Interpretation Comments UA RBC (test code 11-20 /HPF See_Comment [Automate d message] The = UA RBC) system which ge nerated this result tra nsmitted reference range : <=2. The reference range was not used to interpr et this result as normal/abnormal . [facility] [id number] 23:35:00 Test Item Value Reference Range Interpretation Comments UA Sq Epi (test code = UA Sq Occasional /LPF Epi) [facility] [id number] 23:35:00 Test Item Value Reference Range Interpretation Comments UA WBC (test code = UA WBC) 51-100 /HPF [facility] AND [id number] 23:35:00 Test Item Value Reference Range Interpretation Comments UA Urobilinogen (test code = UA 0.2 0.1-1.0 Urobilinogen) [facility] [id number] 23:35:00 Test Item Value Reference Range Interpretation Comments UA Nitrite (test code Negative (11/14/17 6:35 = UA Nitrite) PM) [facility] AND [id number] 23:35:00 Test Item Value Reference Range Interpretation Comments UA Glucose (test code Negative (11/14/17 6:35 = UA Glucose) PM) [facility] AND [id number] 23:35:00 Test Item Value Reference Range Interpretation Comments UA Ketones (test code Negative *NA*(11/14/17 = UA Ketones) 6:35 PM) [facility] AND [id number] 23:35:00 Test Item Value Reference Range Interpretation Comments UA Bili (test code = Negative *NA*(11/14/17 UA Bili) 6:35 PM) [facility] AND [id number] 23:35:00 Test Item Value Reference Range Interpretation Comments UA Blood (test code = Trace *ABN*(11/14/17 UA Blood) 6:35 PM) [facility] AND [id number] 23:35:00 Test Item Value Reference Range Interpretation Comments UA Leuk Est (test code Small *ABN*(11/14/17 6:35 = UA Leuk Est) PM) [facility] AND [id number] 23:35:00 Test Item Value Reference Range Interpretation Comments UA Spec Grav (test code = UA Spec 1.020 1 Grav) [facility] AND [id number] 23:35:00 Test Item Value Reference Range Interpretation Comments UA pH (test code = UA pH) 6.0 1 5.0-8.0 [facility] AND [id number] 23:35:00 Test Item Value Reference Range Interpretation Comments UA Color (test code = Yellow *NA*(11/14/17 6:35 UA Color) PM) [facility] AND [id number] 23:35:00 Test Item Value Reference Range Interpretation Comments UA Protein (test code = Trace *ABN*(11/14/17 UA Protein) 6:35 PM) [facility] AND [id number] 23:35:00 Test Item Value Reference Range Interpretation Comments UA Turbidity (test code Slight Cloudy (11/14/17 = UA Turbidity) 6:35 PM) [facility] AND [id number] 23:35:00 Test Item Value Reference Range Interpretation Comments UA Hyal Cast 0-2 (11/14/17 6:35 See_Comment [Automated message] (test code = UA PM) The system w [facility] Hyal [employer]) generated this result transmitted ref erence range: <=2. The reference range was not used to int erpret this result as normal/abnormal . [facility] AND [id number] 23:35:00 Test Item Value Reference Range Interpretation Comments UA Bacteria (test code = UA Occasional /HPF Bacteria) [facility] AND [id number] 23:35:00 Test Item Value Reference Range Interpretation Comments UA RBC (test code 11-20 /HPF See_Comment [Automate d message] The = UA RBC) system which ge nerated this result tra nsmitted reference range : <=2. The reference range was not used to interpr et this result as normal/abnormal . [facility] AND [id number] 23:35:00 Test Item Value Reference Range Interpretation Comments UA Sq Epi (test code = UA Sq Occasional /LPF Epi) [facility] AND [id number] 23:35:00 Test Item Value Reference Range Interpretation Comments UA WBC (test code = UA WBC) 51-100 /HPF [facility] AND [id number] 23:35:00 Test Item Value Reference Range Interpretation Comments UA Urobilinogen (test code = UA 0.2 0.1-1.0 Urobilinogen) [facility] AND [id number] 23:35:00 Test Item Value Reference Range Interpretation Comments UA Nitrite (test code Negative (11/14/17 6:35 = UA Nitrite) PM) [facility] AND [id number] 23:35:00 Test Item Value Reference Range Interpretation Comments UA Glucose (test code Negative (11/14/17 6:35 = UA Glucose) PM) [facility] AND [id number] 23:35:00 Test Item Value Reference Range Interpretation Comments UA Ketones (test code Negative *NA*(11/14/17 = UA Ketones) 6:35 PM) [facility] AND [id number] 23:35:00 Test Item Value Reference Range Interpretation Comments UA Bili (test code = Negative *NA*(11/14/17 UA Bili) 6:35 PM) [facility] AND [id number] 23:35:00 Test Item Value Reference Range Interpretation Comments UA Blood (test code = Trace *ABN*(11/14/17 UA Blood) 6:35 PM) [facility] AND [id number] 23:35:00 Test Item Value Reference Range Interpretation Comments UA Leuk Est (test code Small *ABN*(11/14/17 6:35 = UA Leuk Est) PM) [facility] AND [id number] 23:35:00 Test Item Value Reference Range Interpretation Comments UA Spec Grav (test code = UA Spec 1.020 1 Grav) [facility] AND [id number] 23:35:00 Test Item Value Reference Range Interpretation Comments UA pH (test code = UA pH) 6.0 1 5.0-8.0 [facility] AND [id number] 23:35:00 Test Item Value Reference Range Interpretation Comments UA Color (test code = Yellow *NA*(11/14/17 6:35 UA Color) PM) [facility] AND [id number] 23:35:00 Test Item Value Reference Range Interpretation Comments UA Protein (test code = Trace *ABN*(11/14/17 UA Protein) 6:35 PM) [facility] AND [id number] 23:35:00 Test Item Value Reference Range Interpretation Comments UA Turbidity (test code Slight Cloudy (11/14/17 = UA Turbidity) 6:35 PM) [facility] AND [id number] 23:35:00 Test Item Value Reference Range Interpretation Comments UA Hyal Cast 0-2 (11/14/17 6:35 See_Comment [Automated message] (test code = UA PM) The system w [facility] [employer]) generated this result transmitted ref erence range: <=2. The reference range was not used to int erpret this result as normal/abnormal . [facility] AND [id number] 23:35:00 Test Item Value Reference Range Interpretation Comments UA Bacteria (test code = UA Occasional /HPF Bacteria) [facility] AND [id number] 23:35:00 Test Item Value Reference Range Interpretation Comments UA RBC (test code 11-20 /HPF See_Comment [Automate d message] The = UA RBC) system which ge nerated this result tra nsmitted reference range : <=2. The reference range was not used to interpr et this result as normal/abnormal . [facility] AND [id number] 23:35:00 Test Item Value Reference Range Interpretation Comments UA Sq Epi (test code = UA Sq Occasional /LPF Epi) [facility] AND [id number] 23:35:00 Test Item Value Reference Range Interpretation Comments UA WBC (test code = UA WBC) 51-100 /HPF [facility] AND [id number] 23:35:00 Test Item Value Reference Range Interpretation Comments UA Urobilinogen (test code = UA 0.2 0.1-1.0 Urobilinogen) [facility] AND [id number] 23:35:00 Test Item Value Reference Range Interpretation Comments UA Nitrite (test code Negative (11/14/17 6:35 = UA Nitrite) PM) [facility] AND [id number] 23:35:00 Test Item Value Reference Range Interpretation Comments UA Glucose (test code Negative (11/14/17 6:35 = UA Glucose) PM) [facility] AND [id number] 23:35:00 Test Item Value Reference Range Interpretation Comments UA Ketones (test code Negative *NA*(11/14/17 = UA Ketones) 6:35 PM) [facility] AND [id number] 23:35:00 Test Item Value Reference Range Interpretation Comments UA Bili (test code = Negative *NA*(11/14/17 UA Bili) 6:35 PM) [facility] AND [id number] 23:35:00 Test Item Value Reference Range Interpretation Comments UA Blood (test code = Trace *ABN*(11/14/17 UA Blood) 6:35 PM) [facility] AND [id number] 23:35:00 Test Item Value Reference Range Interpretation Comments UA Leuk Est (test code Small *ABN*(11/14/17 6:35 = UA Leuk Est) PM) [facility] AND [id number] 23:35:00 Test Item Value Reference Range Interpretation Comments UA Spec Grav (test code = UA Spec 1.020 1 Grav) [facility] AND [id number] 23:35:00 Test Item Value Reference Range Interpretation Comments UA pH (test code = UA pH) 6.0 1 5.0-8.0 [facility] AND [id number] 23:35:00 Test Item Value Reference Range Interpretation Comments UA Color (test code = Yellow *NA*(11/14/17 6:35 UA Color) PM) [facility] AND [id number] 23:35:00 Test Item Value Reference Range Interpretation Comments UA Protein (test code = Trace *ABN*(11/14/17 UA Protein) 6:35 PM) [facility] AND [id number] 23:35:00 Test Item Value Reference Range Interpretation Comments UA Turbidity (test code Slight Cloudy (11/14/17 = UA Turbidity) 6:35 PM) [facility] AND [id number] 23:35:00 Test Item Value Reference Range Interpretation Comments UA [employer] 0-2 (11/14/17 6:35 See_Comment [Automated message] (test code = UA PM) The system w [facility] [employer]) generated this result transmitted ref erence range: <=2. The reference range was not used to int erpret this result as normal/abnormal . [facility] AND [id number] 23:35:00 Test Item Value Reference Range Interpretation Comments UA Bacteria (test code = UA Occasional /HPF Bacteria) [facility] AND [id number] 23:35:00 Test Item Value Reference Range Interpretation Comments UA RBC (test code 11-20 /HPF See_Comment [Automate d message] The = UA RBC) system which ge nerated this result tra nsmitted reference range : <=2. The reference range was not used to interpr et this result as normal/abnormal . [facility] AND [id number] 23:35:00 Test Item Value Reference Range Interpretation Comments UA Sq Epi (test code = UA Sq Occasional /LPF Epi) [facility] AND [id number] 23:35:00 Test Item Value Reference Range Interpretation Comments UA WBC (test code = UA WBC) 51-100 /HPF [facility] [id number] 23:20:00 Test Item Value Reference Range Interpretation Comments Basophils # (test code 0.1 See_Comment [Aut omated message] The = Basophils #) system which generated this result tra nsmitted reference range : <=0.2. The reference r boubacar was not used to int erpret this result as normal/abnormal . [id number] 23:20:00 Test Item Value Reference Range Interpretation Comments Polychrom (test code = Polychrom) Slight [facility] [id number] 23:20:00 Test Item Value Reference Range Interpretation Comments Plt Morph (test code = Normal (11/14/17 6:20 PM) Plt Morph) [facility] [id number] 23:20:00 Test Item Value Reference Range Interpretation Comments Basophils # (test code 0.1 See_Comment [Aut omated message] The = Basophils #) system which generated this result tra nsmitted reference range : <=0.2. The reference r boubacar was not used to int erpret this result as normal/abnormal . [facility] [id number] 23:20:00 Test Item Value Reference Range Interpretation Comments Polychrom (test code = Polychrom) Slight [facility] [id number] 23:20:00 Test Item Value Reference Range Interpretation Comments Plt Morph (test code = Normal (11/14/17 6:20 PM) Plt Morph) [facility] [id number] 23:20:00 Test Item Value Reference Range Interpretation Comments Basophils # (test code 0.1 See_Comment [Aut omated message] The = Basophils #) system which generated this result tra nsmitted reference range : <=0.2. The reference r boubacar was not used to int erpret this result as normal/abnormal . [facility] [id number] 23:20:00 Test Item Value Reference Range Interpretation Comments Polychrom (test code = Polychrom) Slight [facility] [id number] 23:20:00 Test Item Value Reference Range Interpretation Comments Plt Morph (test code = Normal (18 6:20 PM) Plt Morph) [facility] [id number] 23:20:00 Test Item Value Reference Range Interpretation Comments Basophils # (test code 0.1 See_Comment [Aut omated message] The = Basophils #) system which generated this result tra nsmitted reference range : <=0.2. The reference r boubacar was not used to int erpret this result as normal/abnormal . [facility] [id number] 23:20:00 Test Item Value Reference Range Interpretation Comments Polychrom (test code = Polychrom) Slight [facility] [id number] 23:20:00 Test Item Value Reference Range Interpretation Comments Plt Morph (test code = Normal (518 6:20 PM) Plt Morph) [facility] [id number] 23:20:00 Test Item Value Reference Range Interpretation Comments Basophils # (test code 0.1 See_Comment [Aut omated message] The = Basophils #) system which generated this result tra nsmitted reference range : <=0.2. The reference r boubacar was not used to int erpret this result as normal/abnormal . [facility] [id number] 23:20:00 Test Item Value Reference Range Interpretation Comments Polychrom (test code = Polychrom) Slight [facility] [id number] 23:20:00 Test Item Value Reference Range Interpretation Comments Plt Morph (test code = Normal (518 6:20 PM) Plt Morph) [facility] [id number] 23:20:00 Test Item Value Reference Range Interpretation Comments Basophils # (test code 0.1 See_Comment [Aut omated message] The = Basophils #) system which generated this result tra nsmitted reference range : <=0.2. The reference r boubacar was not used to int erpret this result as normal/abnormal . [facility] [id number] 23:20:00 Test Item Value Reference Range Interpretation Comments Polychrom (test code = Polychrom) Slight [facility] [id number] 23:20:00 Test Item Value Reference Range Interpretation Comments Plt Morph (test code = Normal (518 6:20 PM) Plt Morph) [facility]BL[facility] [id number] 16:22:00 Test Item Value Reference Range Interpretation Comments CULTURE (BEAKER) (test No growth in 5 days code = 1095) BLOOD [id number] 16:22:00 Test Item Value Reference Range Interpretation [...] Normal 762) CBC W/PLT COUNT & AUTO [id number] 22:28:00 Test Item Value Reference Range Interpretation [...] 0.00-0.20 (test code = 417) [id number] METABOLIC [id number] 11:11:00 Test Item Value Reference Range Interpretation [...] NOT APPLICABLE FOR DIALYSIS PATIEN TS. URINE [id number] 09:56:00 Test Item Value Reference Range Interpretation Comments CULTURE (BEAKER) (test <10,000 col/mL skin code = 1095) marilee COMPREHENSIVE METABOLIC [id number] 08:49:00 Test Item Value Reference Range Interpretation [...] PATIEN TS. CBC W/PLT COUNT & AUTO [id number] 08:46:00 Test Item Value Reference Range Interpretation [...] 0.00-0.20 (test code = 417) 0.00URINALYSIS W/ [id number] 20:36:00 Test Item Value Reference Range Interpretation [...] SOURCE(BEAKER) (test code = 2795) BASIC METABOLIC [id number] 17:00:00 Test Item Value Reference Range Interpretation [...] Specimen slightly ictericCBC W/PLT COUNT & AUTO [id number] 12:18:00 Test Item Value Reference Range Interpretation [...]
[2022-11-14] MEDS ORDERED: ALBUTEROL 2.5 MG/3 ML NEB SOL ONE (15:37)
[2022-11-14] MEDS ORDERED: FENTANYL CITR 100 MCG/2 ML ONE (15:37)
--- NOTE | 2022-11-14 15:37 | RAD REPORT ---
EXAM DESCRIPTION: [place] Single View11/14/2022 3:26 pm CLINICAL HISTORY: Cough COMPARISON: July 2022 FINDINGS: The lungs appear clear of acute infiltrate. The heart is normal size Shunt courses the right hemithorax IMPRESSION: No acute abnormalities displayed
[2022-11-14 16:12] LABS: Absolute Lymphocytes (CBC) 0.6 K/uL (0.7-4.9); Hematocrit 45.9 % (39.6-49.0); Lymphocytes % 5.1 % (15.3-44.8); MCV 90.7 fL (80-100); MPV 8.8 fL (7.6-11.3); RBC Red Blood Cell Count 5.06 M/uL (4.33-5.43)
[2022-11-14 16:48] LABS: BUN Blood Urea Nitrogen 50 mg/dL (7-18); Bicarbonate 24 mEq/L (21-32); Glomerular Filtration Rate 50 ml/min (=/>90); Sodium Level 130 mEq/L (136-145); Troponin High Sensitivity < 3.0 pg/mL (<58.9)
[2022-11-14 16:49] LABS: Glucose Level 960 mg/dL (74-106)
[2022-11-14] MEDS ORDERED: HYDROMORPHONE HCL 1 MG/ML INJ ONE (18:20)
--- NOTE | 2022-11-14 19:49 | ER ---
Nurse's Notes [facility] Name: Roland Feldman Jr Age: 37 yrs Sex: Male : 1985 Arrival Date: 11/14/2022 Time: 14:25 Bed 15 Private MD: Diagnosis: Other specified diabetes mellitus with hyperosmolarity without nonketotic hyperglycemic-hyperosmolar coma ([facility]);UTI/ Urinary tract infection, site not specified Presentation: 11/14 14:37 Chief complaint: EMS states: chest pain for 1 day, abdominal pain for 4 days, EMS 3 reports BGL 486, pt reports unable to eat or drink for past 84 hours, EMS found 2 empty Damari cans under pt at home, pt reports using 3L O2 NC at home for past 3-4 days, pt missed wound care appointment this week. Coronavirus screen: Vaccine status: Patient reports receiving the 2nd dose of the covid vaccine. Ebola Screen: No symptoms or risks identified at this time. Initial Sepsis Screen: Does the patient meet any 2 criteria? No. Patient's initial sepsis screen is negative. Does the patient have a suspected source of infection? No. Patient's initial sepsis screen is negative. Risk Assessment: Do you want to hurt yourself or someone else?. Onset of symptoms was November 14, 2022. 14:37 Method Of Arrival: EMS: [place] [address] 14:37 Acuity: YUKI 3 eh3 Triage Assessment: 14:43 General: Appears in no apparent distress. uncomfortable, obese, unkempt, Behavior is eh3 calm, cooperative, appropriate for age. Pain: Complains of pain in mid-sternal area Pain does not radiate. Pain currently is 10 out of 10 on a pain scale. EENT: No signs and/or symptoms were reported regarding the EENT system. Neuro: Level of Consciousness is awake, alert, obeys commands, Oriented to person, place, time, situation. Cardiovascular: Capillary refill < 3 seconds Patient's skin is warm and dry. Respiratory: Airway is patent Respiratory effort is even, labored, Respiratory pattern is regular, symmetrical. GI: Abdomen is round Reports lower abdominal pain, upper abdominal pain, intolerance of fluids, intolerance of food, nausea. : No signs and/or symptoms were reported regarding the genitourinary system. [place] in place. Derm: No signs and/or symptoms reported regarding the dermatologic system. Musculoskeletal: No signs and/or symptoms reported regarding the musculoskeletal system. Historical: - Allergies: 14:43 Amoxicillin; eh3 14:43 Bactrim; eh3 14:43 Ciprofloxacin; eh3 14:43 CLAVULANIC ACID; eh3 14:43 Demerol; eh3 14:43 Doxycycline; eh3 14:43 Levofloxacin; eh3 14:43 Morphine; eh3 14:43 PENICILLINS; eh3 14:43 Toradol; eh3 14:43 TRIMETHOPRIM; eh3 14:43 Vancomycin; eh3 14:43 Zofran; eh3 - Home Meds: 14:43 Dilaudid [Active]; Phenergan Oral [Active]; Insulin: Regular Sub-Q [Active]; eh3 - PMHx: 14:43 Asthma; Cerebral Palsy; cluster headaches; decubitus ulcers on feet; diabetes mellitus; eh3 GERD; Hydrocephalus; Hypertension; spina bifida; - PSHx: 14:43 Cholecystectomy; Shunt Revision; eh3 - Immunization history:: Adult Immunizations up to date. - Social history:: Smoking status: unknown. Screenin:46 [facility] ED Fall Risk Assessment (Adult) Score/Fall Risk Level 0 - 2 = Low Risk. Abuse eh3 screen: Denies threats or abuse. Denies injuries from another. Nutritional screening: No deficits noted. Tuberculosis screening: No symptoms or risk factors identified. Assessment: 14:46 Reassessment: No changes from previously documented assessment. See triage assessment. eh3 Pain: Pain began 1 day ago. 14:46 Pain: Complains of pain in mid-sternal area Pain does not radiate. Pain currently is 10 eh3 out of 10 on a pain scale. 15:00 Reassessment: Patient and/or family updated on plan of care and expected duration. Pain eh3 level reassessed. Patient is alert, oriented x 3, equal unlabored respirations, skin warm/dry/pink. 16:00 Reassessment: Patient and/or family updated on plan of care and expected duration. Pain eh3 level reassessed. Patient is alert, oriented x 3, equal unlabored respirations, skin warm/dry/pink. Patient states symptoms have not improved. 17:00 Reassessment: Patient and/or family updated on plan of care and expected duration. Pain eh3 level reassessed. Patient is alert, oriented x 3, equal unlabored respirations, skin warm/dry/pink. 18:00 Reassessment: Patient and/or family updated on plan of care and expected duration. Pain eh3 level reassessed. Patient is alert, oriented x 3, equal unlabored respirations, skin warm/dry/pink. 19:45 General: Appears comfortable, Behavior is calm, cooperative. Pain: Complains of pain in ha1 sacrum Pain does not radiate. Pain currently is 6 out of 10 on a pain scale. Quality of pain is described as throbbing, Alleviated by medications. Neuro: Level of Consciousness is awake, alert, obeys commands, Oriented to person, place, time, situation. Cardiovascular: Heart tones S1 S2 present Rhythm is sinus rhythm. Respiratory: Airway is patent Respiratory effort is even, unlabored, Respiratory pattern is regular, symmetrical. GI: Abdomen is non-distended, obese, Bowel sounds present X 4 quads. Reports nausea. : suprapubic catheter in place Urine is cloudy. Derm: Wound noted gluteal cleft and scrotum. Musculoskeletal: Range of motion: limited in right and left leg Swelling present in right leg and left leg. 20:30 Reassessment: Patient is alert, oriented x 3, equal unlabored respirations, skin ha1 warm/dry/pink. reports pain 8/10. Notified care provider. 20:45 Reassessment: Nurse to nurse report received by Laxmi in ICU. 3 21:30 Reassessment: Patient and/or family updated on plan of care and expected duration. Pain ha1 level reassessed. Respiratory: Airway is patent Respiratory effort is even, unlabored, Respiratory pattern is regular, symmetrical. Vital Signs: 14:37 BP 99 / 72; Pulse 97; Resp 12; Temp 97.6(TE); Pulse Ox 92% on R/A; Weight 127.46 kg; 3 Height 4 ft. 11 in. ; Pain 10/10; 15:00 BP 93 / 68; Pulse 98; Resp 20; Pulse Ox 95% on 3 lpm NC; eh3 16:00 BP 104 / 68; Pulse 96; Resp 19; Pulse Ox 96% on 3 lpm NC; eh3 17:00 BP 122 / 95; Pulse 98; Resp 20; Pulse Ox 97% on 3 lpm NC; eh3 18:00 BP 131 / 81; Pulse 120; Resp 20; Pulse Ox 97% on 3 lpm NC; eh3 19:00 BP 106 / 73; Pulse 97; Resp 20; Pulse Ox 95% on 3 lpm NC; eh3 20:00 BP 106 / 73; Pulse 103; Resp 20 S; Pulse Ox 97% on 2 lpm NC; ha1 21:00 BP 105 / 75; Pulse 99; Resp 18 S; Pulse Ox 98% on 5 lpm NC; ha1 22:00 BP 102 / 74; Pulse 102; Resp 19 S; Pulse Ox 97% on 5 lpm NC; ha1 14:37 Body Mass Index 56.75 (127.46 kg, 149.86 cm) 3 14:37 Pain Scale: Adult [facility] ED Course: 14:37 Patient arrived in ED. 3 14:43 Triage completed. 3 14:43 Arm band placed on. 3 14:44 Stacie Taylor is Attending Physician. sk4 14:44 Stacie Taylor is Attending Physician. sk4 14:46 Patient has correct armband on for positive identification. Bed in low position. Call [facility] light in reach. Side rails up X2. Client placed on continuous cardiac and pulse oximetry monitoring. NIBP monitoring applied. Door closed. Noise minimized. 14:46 Oxygen administration via nasal cannula \T\ 3L/min. eh3 14:57 Michelle Cade, RN is Primary Nurse. eh3 15:27 XRAY Chest (1 view) In Process Unspecified. EDMS 15:56 Inserted saline lock: 22 gauge in left forearm, using aseptic technique. Blood zm collected. 15:59 Basic Metabolic Panel Sent. zm 15:59 CBC with Diff Sent. zm 15:59 Troponin HS Sent. zm 15:59 BNP Sent. zm 16:47 Notified ED physician of a critical lab result(s). BGL 960. eh3 19:48 Eren Varela MD is Hospitalizing Provider. sk4 20:32 No provider procedures requiring assistance completed. Patient admitted, IV remains in [address] Administered Medications: 14:52 CANCELLED (wrong order): fentaNYL (PF) IVP 50 mcg IVP once sk4 15:30 CANCELLED (Duplicate Order): DuoNeb Nebulize (3:1) (2.5 mg - 0.5 mg) 3 ml Nebulizer oncesk4 15:45 Drug: fentaNYL (PF) IVP 25 mcg Route: IVP; Site: left forearm; eh3 16:45 Follow up: Response: Pain is unchanged, physician notified eh3 16:30 Drug: Albuterol Inhalation 2.5 mg Route: Inhalation; eh3 17:30 Follow up: Response: No adverse reaction eh3 17:10 Drug: Insulin Regular Human IVP 10 units {Co-Signature: ld1 (Hanh Palumbo RN).} Route: eh3 IVP; Site: left forearm; 18:15 Follow up: Response: Blood sugar is unchanged eh3 17:15 Drug: NS 0.9% IV 1000 ml Route: IV; Rate: 125 ml/hr; Site: left forearm; eh3 18:04 Drug: HYDROmorphone IVP 0.5 mg Route: IVP; Site: left forearm; eh3 19:00 Follow up: Response: Pain is decreased eh3 20:35 Drug: Rocephin IV 1 grams Route: IV; Rate: bolus; Site: left forearm; ha1 Medication: 20:32 VIS not applicable for this client. eh3 Outcome: 19:48 Decision to Hospitalize by Provider. sk4 22:21 Patient left the ED. ha1 22:21 Condition: stable ha1 22:21 Admitted to ICU accompanied by nurse, via stretcher, room 6, with oxygen, on monitor, ha1 with chart, Report called to NAIF Webber. report was given by NAIF Martinez 22:21 Discharge instructions given to patient, Instructed on the need for admit, Demonstrated understanding of instructions. Signatures: Dispatcher [employer] EDMI Michelle Cade RN RN 3 Gertrude Stephens Heidy, RN RN ha1 Stacie Taylor [facility] Hanh Palumbo RN ld1 Corrections: (The following items were deleted from the chart) 16:01 15:59 Inserted saline lock: 22 gauge in left forearm, using aseptic technique. Blood zm collected. 19:35 14:46 Pain: Complains of pain in mid-sternal area eh3 eh3 19:36 15:00 Reassessment: Patient appears in no apparent distress at this time. Patient eh3 and/or family updated on plan of care and expected duration. Pain level reassessed. Patient is alert, oriented x 3, equal unlabored respirations, skin warm/dry/pink. [facility] 19:39 16:00 BP 93 / 68; Pulse 98bpm; Resp 20bpm; Pulse Ox 95% 3 lpm Nasal Cannula; [place] [id number] 20:32 17:00 BP 122 / 85; Pulse 98bpm; Resp 20bpm; Pulse Ox 97% 3 lpm Nasal Cannula; [place] [address] 0504 05:38 05/03 22:00 BP 102 / 74; Pulse 108bpm; Resp 19bpm; Spontaneous; Pulse Ox 97% 5 lpm ha1 Nasal Cannula; ha1
--- NOTE | 2022-11-14 19:49 | EDPHYS ---
Physician Documentation [facility] Name: Roland Feldman Jr Age: 37 yrs Sex: Male : 1985 Arrival Date: 11/14/2022 Time: 14:25 Bed 15 Private MD: ED Physician Stacie Taylor HPI: 11/14 14:53 This 37 yrs old Black Male presents to ER via EMS with complaints of Chest Pain. sk4 14:53 pt here for 'pain all over'. having some cough and difficulty breathing. has history of sk4 spina bifida, indwelling presley, has o2 at home but doesn't use all the time. lives alone. pcp is Dr. Varela.. Historical: - Allergies: 14:43 Amoxicillin; eh3 14:43 Bactrim; eh3 14:43 Ciprofloxacin; eh3 14:43 CLAVULANIC ACID; eh3 14:43 Demerol; eh3 14:43 Doxycycline; eh3 14:43 Levofloxacin; eh3 14:43 Morphine; eh3 14:43 PENICILLINS; eh3 14:43 Toradol; eh3 14:43 TRIMETHOPRIM; eh3 14:43 Vancomycin; eh3 14:43 Zofran; eh3 - Home Meds: 14:43 Dilaudid [Active]; Phenergan Oral [Active]; Insulin: Regular Sub-Q [Active]; eh3 - PMHx: 14:43 Asthma; Cerebral Palsy; cluster headaches; decubitus ulcers on feet; diabetes mellitus; eh3 GERD; Hydrocephalus; Hypertension; spina bifida; - PSHx: 14:43 Cholecystectomy; Shunt Revision; eh3 - Immunization history:: Adult Immunizations up to date. - Social history:: Smoking status: unknown. ROS: 14:53 Constitutional: Negative for fever, chills, and weight loss. sk4 14:53 Respiratory: Positive for cough, shortness of breath. Exam: 14:53 Constitutional: This is a well developed, well nourished patient who is awake, alert, sk4 and in no acute distress. Chest/axilla: Normal chest wall appearance and motion. Nontender with no deformity. No lesions are appreciated. Cardiovascular: Regular rate and rhythm with a normal S1 and S2. No gallops, murmurs, or rubs. Normal PMI, no JVD. No pulse deficits. Respiratory: Lungs have equal breath sounds bilaterally Abdomen/GI: Soft, non-tender. suprapubic catheter in place Skin: Warm, dry with normal turgor. Normal color with no rashes, no lesions, and no evidence of cellulitis. Neuro: Awake and alert, Psych: Behavior, mood, and affect are within normal limits. 19:45 ECG was reviewed by the Attending Physician. NSR, no acute ST/t changes 4 Vital Signs: 14:37 BP 99 / 72; Pulse 97; Resp 12; Temp 97.6(TE); Pulse Ox 92% on R/A; Weight 127.46 kg; eh3 Height 4 ft. 11 in. ; Pain 10/10; 15:00 BP 93 / 68; Pulse 98; Resp 20; Pulse Ox 95% on 3 lpm NC; eh3 16:00 BP 104 / 68; Pulse 96; Resp 19; Pulse Ox 96% on 3 lpm NC; 3 17:00 BP 122 / 95; Pulse 98; Resp 20; Pulse Ox 97% on 3 lpm NC; eh3 18:00 BP 131 / 81; Pulse 120; Resp 20; Pulse Ox 97% on 3 lpm NC; eh3 19:00 BP 106 / 73; Pulse 97; Resp 20; Pulse Ox 95% on 3 lpm NC; eh3 20:00 BP 106 / 73; Pulse 103; Resp 20 S; Pulse Ox 97% on 2 lpm NC; ha1 21:00 BP 105 / 75; Pulse 99; Resp 18 S; Pulse Ox 98% on 5 lpm NC; ha1 22:00 BP 102 / 74; Pulse 102; Resp 19 S; Pulse Ox 97% on 5 lpm NC; ha1 14:37 Body Mass Index 56.75 (127.46 kg, 149.86 cm) [facility] 14:37 Pain Scale: Adult 3 MDM: 14:53 Differential diagnosis: abnormal EKG, acute myocardial infarction, congestive heart 4 failure pleurisy, pneumonia, unstable angina. Data reviewed: vital signs, nurses notes, lab test result(s), EKG, radiologic studies. I considered the following discharge prescriptions or medication management in the emergency department Medications were administered in the Emergency Department. See SEP. 19:45 Consideration of Admission/Observation Patient was admitted/placed on observation. sk4 Management of patient was discussed with the following: Primary Care Provider: Dr. Varela. Independent interpretation of the following test(s) in the Emergency Department EKG: See my EKG interpretation above. Care significantly affected by the following chronic conditions: Diabetes, Obesity. Medication response: IV fluids, insulin, dilaudid/zofran. Response to treatment: the patient's symptoms have mildly improved after treatment. ED course: updated pt on all results. iv fluid bolus and insulin given. repeat glucose remains over 500. discussed with Dr. Varela who advises admission to ICU on insulin drip. Pt has indwelling suprapubic which has some leaking from the site. Bag is full which confirms there is adequate drainage. Urine cloudy and malodorous. Pt given rocpehin empirically after discussion about allergies and which abx have helped him before. States has never had rxn to rocephin and this is typically how his urinary infections are treated. . 19:48 Patient medically screened. [facility] 11/14 14:51 Order name: Basic Metabolic Panel; Complete Time: 16:52 [facility] 11/14 14:51 Order name: CBC with Diff; Complete Time: 16:48 [facility] 11/14 14:51 Order name: Troponin HS; Complete Time: 16:52 [facility] 11/14 14:56 Order name: BNP; Complete Time: 16:48 [facility] 11/14 14:56 Order name: Urinalysis w/ reflexes [facility] 11/14 16:56 Order name: Glucose, Ancillary Testing; Complete Time: 17:34 [facility] 11/14 18:30 Order name: Glucose [facility] 11/14 19:44 Order name: Glucose, Ancillary Testing [facility] 11/14 14:51 Order name: XRAY Chest (1 view); Complete Time: 15:44 [facility] 11/14 14:51 Order name: EKG; Complete Time: 14:52 [facility] 11/14 14:51 Order name: Cardiac monitoring; Complete Time: 14:57 [facility] 11/14 14:51 Order name: EKG - Nurse/Tech; Complete Time: 16:20 [facility] 11/14 14:51 Order name: IV Saline Lock; Complete Time: 15:59 [facility] 11/14 14:51 Order name: Labs collected and sent; Complete Time: 15:59 [facility] 11/14 14:51 Order name: O2 Per Protocol; Complete Time: 14:57 sk4 11/14 14:51 Order name: O2 Sat Monitoring; Complete Time: 14:57 sk4 Administered Medications: 14:52 CANCELLED (wrong order): fentaNYL (PF) IVP 50 mcg IVP once sk4 15:30 CANCELLED (Duplicate Order): DuoNeb Nebulize (3:1) (2.5 mg - 0.5 mg) 3 ml Nebulizer oncesk4 15:45 Drug: fentaNYL (PF) IVP 25 mcg Route: IVP; Site: left forearm; 3 16:45 Follow up: Response: Pain is unchanged, physician notified eh3 16:30 Drug: Albuterol Inhalation 2.5 mg Route: Inhalation; eh3 17:30 Follow up: Response: No adverse reaction 3 17:10 Drug: Insulin Regular Human IVP 10 units {Co-Signature: ld1 (Hanh Palumbo RN).} Route: eh3 IVP; Site: left forearm; 18:15 Follow up: Response: Blood sugar is unchanged 3 17:15 Drug: NS 0.9% IV 1000 ml Route: IV; Rate: 125 ml/hr; Site: left forearm; eh3 18:04 Drug: HYDROmorphone IVP 0.5 mg Route: IVP; Site: left forearm; eh3 19:00 Follow up: Response: Pain is decreased 3 20:35 Drug: Rocephin IV 1 grams Route: IV; Rate: bolus; Site: left forearm; ha1 Disposition Summary: 11/14/22 19:48 Hospitalization Ordered Hospitalization Status: Inpatient Admission [facility] Provider: Eren Varela [facility] Location: Intensive Care Unit 4 Condition: Stable 4 Problem: an acute exacerbation sk4 Symptoms: have improved 4 Bed/Room Type: Standard [facility] Room Assignment: 6-(11/14/22 20:16) Diagnosis - Other specified diabetes mellitus with hyperosmolarity without nonketotic 4 hyperglycemic-hyperosmolar coma ([facility]) - UTI/ Urinary tract infection, site not specified [facility] Forms: - Medication Reconciliation Form 4 - SBAR form 4 Signatures: Dispatcher [employer] Kari Levin RN RN Michelle Cade RN RN [facility] Karine Zapien RN RN [facility] Stacie Taylor sk4 Hanh Palumbo RN ld1 Corrections: (The following items were deleted from the chart) 14:52 14:51 fentaNYL (PF) IVP 50 mcg IVP once ordered. sk4 sk4 15:30 14:53 DuoNeb Nebulize (3:1) (2.5 mg - 0.5 mg) 3 ml Nebulizer once ordered. sk4 sk4 15:30 15:30 DuoNeb Nebulize (3:1) (2.5 mg - 0.5 mg) 3 ml Nebulizer once ordered. sk4 sk4 20:16 19:48 sk4 cg
[2022-11-14] MEDS ORDERED: D50W 25 GM/50 ML SYRINGE IV PRN ×2 (19:53→20:53)
[2022-11-14] MEDS ORDERED: GLUCAGON 1 MG/VIAL IM PRN ×2 (19:53→20:53)
[2022-11-14] MEDS ORDERED: INSULIN -REGULAR HUMAN 100 UNIT in NA CHLORIDE 0.9% 100 ML IV SCH ×2 (20:00→21:00)
[2022-11-14] MEDS ORDERED: D10W 125 ML IV PRN (20:21)
[2022-11-14] MEDS ORDERED: NA CHLORIDE 0.9% 50 ML ONE (20:33)
[2022-11-14] MEDS ORDERED: CEFTRIAXONE 1000 MG/VIAL ONE (20:33)
[2022-11-14 20:50] LABS: Specific Gravity 1.018 (1.005-1.030); Urine Bacteria Loaded /HPF (<20); Urine Bilirubin NEGATIVE (Negative); Urine Blood 3+ (OVER) (Negative); Urine Clarity Extremely Turbid (Clear); Urine Color Light-Orange (Yellow); Urine Glucose 4+ (Over) (Negative); Urine Mucus 3+ /HPF (None Seen); Urine Protein 1+ (Negative); Urine RBC >50 /HPF (None Seen); Urine Urobilinogen Normal (Normal)
[2022-11-14] MEDS ORDERED: INSULIN -REGULAR HUMAN 50 UNIT/0.5 ML ML ONE (23:17)
[2022-11-14] MEDS ORDERED: NA CHLORIDE 0.9% 100 ML ONE (23:18)
[2022-11-14] MEDS ORDERED: HYDROCODONE/APAP 10/325 TAB PO PRN (23:27)
[2022-11-14] MEDS: NA CHLORIDE 0.9% 1,000 ML IV SCH (23:42)
[2022-11-15 00:21] VITALS: BMI 52.0
[2022-11-15 05:00] LABS: Absolute Lymphocytes (CBC) 1.3 K/uL (0.7-4.9); Hematocrit 46.7 % (39.6-49.0); Lymphocytes % 9.9 % (15.3-44.8); MCV 87.9 fL (80-100); MPV 8.5 fL (7.6-11.3); RBC Red Blood Cell Count 5.31 M/uL (4.33-5.43)
[2022-11-15 05:15] LABS: Albumin 2.2 g/dL (3.4-5.0); Bilirubin Total 0.4 mg/dL (0.2-1.0); Potassium 4.9 mEq/L (3.5-5.1); Protein, Total 8.4 g/dL (6.4-8.2)
--- NOTE | 2022-11-15 08:09 | P.HP ---
Certification for Inpatient Patient admitted to: Inpatient With expected LOS: >2 Midnights Patient will require the following post-hospital care: Home Health Services Practitioner: I am a practitioner with admitting privileges, knowledge of patient current condition, hospital course, and medical plan of care. Services: Services provided to patient in accordance with Admission requirements found in Title 42 Section 412.3 of the Code of Federal Regulations Patient History Date of Service: 11/15/22 Primary Care Provider: MONICO Reason for admission: hyperglycemia History of Present Illness: Patient is a well know patient with spina bifida and dm2. He stopped taking his insulin. States for 2 days, he usually underreports this. Has numerous hospitalizations here and in [facility] for this reason. He is poor for follow up. Or calling the office for diabetic supplies. Came into the ER With a cough yesterday. Found to have a sugar in the 900's States he was not taking his sugar and drinking lemonade Allergies levofloxacin [From Levaquin] Allergy (Intermediate, Verified 08/07/22 22:50) Hives morphine Allergy (Intermediate, Verified 08/07/22 22:50) Hives sulfamethoxazole [From Bactrim] Allergy (Intermediate, Verified 08/07/22 22:50) Hives ketorolac tromethamine [From Toradol] Allergy (Verified 08/07/22 22:50) Nausea/Vomiting Penicillins Allergy (Verified 08/07/22 22:50) Hives/Rash vancomycin Allergy (Verified 08/07/22 22:50) Hives ondansetron [From Zofran (as hydrochloride)] Adverse Reaction (Mild, Verified 08/07/22 22:50) Nausea/Vomiting amoxicillin [From Augmentin] Adverse Reaction (Verified 08/07/22 22:50) Hives/Rash ciprofloxacin Adverse Reaction (Verified 08/07/22 22:50) Nausea/Vomiting doxycycline Adverse Reaction (Verified 08/07/22 22:50) Nausea/Vomiting sesame seed Adverse Reaction (Verified 08/07/22 22:50) diarrhea pop corn Adverse Reaction (Severe, Uncoded 08/07/22 22:50) diarrhea Home Medications: Hydromorphone [Dilaudid] 4 mg PO Q8HP PRN 09/25/21 Lisinopril [Zestril] 2.5 mg PO DAILY 08/07/22 Insulin Glargine,Hum.rec.anlog [Lloyd] 45 unit SQ DAILY 08/13/22 - Past Medical/Surgical History Has patient received pneumonia vaccine in the past: No Diabetic: Yes -: Spina Bifida with hydrocephalus -: Depression -: Insomnia -: suprapubic catheter -: GERD -: Chronic pain syndrome -: Muscle wasting -: Paraplegia -: Shunt revision -: Cholecystectomy -: Foot surgery -: Hip sx BL -: Bilateral hip surgery -: Appendectomy Psychosocial/ Personal History: Patient currently single. He has no children. He is disabled. - Family History Father -: Hypertension Mother -: Hypertension - Social History Smoking Status: Current every day smoker Alcohol use: Yes CD- Drugs: No Caffeine use: No Place of Residence: Home Review of Systems 10-point ROS is otherwise unremarkable General: Weakness Physical Examination - Vital Signs Temperature: 98.7 F Blood Pressure: 121/77 Pulse: 102 Respirations: 33 Pulse Ox (%): 95 - Physical Exam General: Alert, In no apparent distress HEENT: Atraumatic, PERRLA, Mucous membr. moist/pink, EOMI, Sclerae nonicteric Neck: Supple, 2+ carotid pulse no bruit, No LAD, Without JVD or thyroid abnormality Respiratory: Clear to auscultation bilaterally, Normal air movement Cardiovascular: Regular rate/rhythm, Normal S1 S2 Gastrointestinal: Normal bowel sounds, No tenderness Musculoskeletal: No tenderness Integumentary: No rashes Neurological: Normal gait, Normal speech, Normal strength at 5/5 x4 extr, Normal tone, Normal affect Lymphatics: No axilla or inguinal lymphadenopathy - Studies Laboratory Data (last 24 hrs) 11/14/22 15:56: WBC 10.70, Hgb 15.1, Hct 45.9, Plt Count 371 11/14/22 15:56: Sodium 130 L, Potassium 5.0, BUN 50 H, Creatinine 1.77 H, Glucose 960 H* Assessment and Plan - Problems (Diagnosis) (1) Hyperosmolar non-ketotic state due to type 2 diabetes mellitus Current Visit: No Status: Acute Plan: due to non compliance with insulin. I had a talk with him this morning. He may need therapy. He has a long history of non compliance. This can be frustrating to his providers. More importantly this behavior is most likely shortening his life expectancy. His sugars this morning are in the 150's Stop the insulin drip. Start him on sq insulin and start feeding him (2) Chronic suprapubic catheter Current Visit: Yes Status: Chronic Plan: Is leaking. Will consult Dr. Hong (3) Chronic pain disorder Onset Date: 05/17/17 Current Visit: No Status: Chronic Plan: restart his hydromorphine (4) Spina bifida Onset Date: 05/17/17 Current Visit: No Status: Chronic Plan: Wheelchair bound Qualifiers: Spinal region: lumbar (5) Pressure ulcer of unspecified site, unspecified stage Current Visit: Yes Status: Chronic Plan: have been treating in the wound care center. The patient has not been coming. Will start him on Santyl and consult wound center. Qualifiers: Pressure injury location: ankle Pressure injury stage: stage 2 Laterality: unspecified laterality Qualified Code(s): L89.502 - Pressure ulcer of unspecified ankle, stage 2 - Advance Directives Does patient have a Living Will: No Does patient have a Durable POA for Healthcare: No - Code Status/Comfort Care Code Status Assessed: Yes Code Status: Full Code Critical Care: No Time Spent Managing Pts Care (In Minutes): 45
[2022-11-15] MEDS: INSULIN GLARGINE 100 UNIT/ML SQ SCH (08:50)
[2022-11-15] MEDS: HYDROMORPHONE ORAL 4 MG TAB PO PRN (08:50)
[2022-11-15] MEDS: NA CHLORIDE 0.9% 1,000 ML IV SCH ×4 (08:51→22:31)
[2022-11-15] MEDS ORDERED: D10W 250 ML BAG IV PRN (15:10)
--- NOTE | 2022-11-15 15:16 | P.PN ---
Date of Service: 11/15/22 wound care called with the patient wounds. have discussed it with Dr. Ching and Dr. Hong. will start the patient on zosyn for possible gangrene
[2022-11-15] MEDS: HYDROMORPHONE HCL 2 MG/ML inj IV PRN ×2 (15:41→21:03)
[2022-11-15] MEDS: COLLAGENASE 30 GM OINTMENT TOP SCH (15:45)
[2022-11-15] MEDS: INSULIN -REGULAR HUMAN 50 UNIT/0.5 ML ML SQ SCH ×2 (17:07→20:28)
[2022-11-15] MEDS: PIPER TAZO 3.375 GM in NA CHLORIDE 0.9% 100 ML IV SCH (17:07)
[2022-11-15] MEDS: JUVEN PACKET PO SCH (20:29)
[2022-11-15] MEDS ORDERED: PROMETHAZINE INJ 25 MG/ML AMP ONE (21:34)
--- NOTE | 2022-11-15 22:41 | P.CNS ---
Date of Consult: 11/15/22 Reason for Consult: Suspected Jassi's Requesting Physician: Eren Varela Primary Care Provider: MONICO Chief Complaint: hyperglycemia History of Present Illness: 37-year-old gentleman known to me from prior consult 08/09/2022, wheelchair-bound with spina bifida, hydrocephalus, IDDM, GERD, and paraplegia with chronic indwelling suprapubic catheter managed at [facility] inconsistently with recurrent colonization versus UTIs with highly resistant organisms. I changed his suprapubic catheter last on 08/09/2022, and I recommended follow-up with me in the urology clinic for cystoscopy to evaluate for bladder calculus underlying the recurrent infections. Renal ultrasound was also recommended to rule out upper tract calculus as the source of recurrent UTIs but also to rule out hydronephrosis from obstruction. Otherwise I recommended he seek follow-up with his urologist at [facility] and to ensure evaluation. It is unclear whether additional evaluation was performed at [facility], but he explained he has had the suprapubic catheter is exchanged and the has had more issues lately with significant pericatheter leakage of urine. This apparently has resulted in progressive worsening and deterioration of the skin of his scrotum, perineum, and decubitus ulcers. He was apparently seen in the emergency department yesterday with a cough and found to have a blood sugar in the 900s. He was apparently not monitoring and managing his diabetes well and drinking a lot of sugary beverages. He was admitted and given an insulin drip. His pressure ulcer has been treated at the wound care center, but he had not been going. And I was consulted regarding management of his suprapubic catheter and the leakage of urine worsening his ulcerative conditions. Examination: Patient at his usual state in no acute distress Afebrile Discomfort with lifting of his abdominal pannus per routine Suprapubic catheter inserted and apparently in reasonable position and draining some urine into a leg bag, but significant urine leaking from the phallus draining into his scrotal perineal region. Scrotum erythematous with some skin maceration ventral posteriorly, and the perineal scrotal region with necrotic skin change occurring and areas of ulcerative formation within the perineum extending into the decubitus region noted. Deep tissue palpation and manipulation performed, and no crepitus or significant blanching erythema consistent with cellulitis noted. As a result, recognizing the skin superficially within the scrotum and perineum was largely being macerated by bathing and a moist colonized/infected urine bath constantly associated with the fecal marilee coming from his anus was contributing to superficial necrosis and risk of necrotizing infection. So I recommended efforts at wound care to dry the area and placement of a urethral catheter to eliminate the incontinence of urine causing moisture in that region. Wound care and urethral Alcantara catheter placement as well as suprapubic catheter manipulation and replacement procedure note: With the assistance of 2 nurses, the patient was rotated onto his left side and to expose his backside and perineal region. We were able to wipe and clean the area free of any associated urine, and then we applied Aquacel silver dressing all around the perineal scrotal region with ABD pads to absorb any surrounding moisture and dry the area. The patient was then rotated back onto his back, and additional Aquacel silver was placed around the anterior component of the scrotal skin that was macerated along with ABD pads to again try to dry that area. Because urine was still actively leaking from the meatus, I then prepped the meatus with Betadine and draped in standard fashion before passing an 18 Maori Alcantara catheter through the urethra and putatively in his bladder. Because there was clear evidence of contraction of his bladder with significant spasms and a degree of discomfort associated with efforts to irrigate the suprapubic tube, it was unclear to me how successful I was at placement of the urethral Alcantara except that when I would attempt to irrigate the suprapubic catheter, the urine would drain appropriately from the Alcantara catheter. I additionally deflated the suprapubic catheter balloon and advanced it further into his bladder before reinflating the balloon minimally and seeding the balloon at the entry into the bladder by inflating it further as I retracted the suprapubic catheter to ensure its appropriate positioning. Fluid instilled via the suprapubic catheter again irrigated through and out the penis or the newly placed Alcantara catheter. Once both catheters were in place and placed to drainage, this did abrogate the urethral discharge of urine, and fresh ABD pads were placed to ensure the area with dry completely. Recommendation: -CT scan of the pelvis and perineum which may be done with or just without IV contrast to assess for air in the tissues , drainable collection that may require surgical intervention, and to ensure both the urethral catheter balloon and suprapubic catheter balloon are appropriately situated within his contracted bladder. If no drainable collection or air in the tissues consistent with Jassi's gangrene, local wound care to keep the skin dry but with antimicrobial dressings applied against it to allow the superficial necrotic tissue to debride and to reepithelialize with healthy tissue as what I would recommend at this time. -We will monitor for progressive deterioration of his perineal scrotal wound situation to determine if surgical intervention may eventually become necessary. -Meanwhile oxybutynin XL 5 to 10 mg daily would be helpful to manage his bladder contraction and spasms potentially causing him a degree of discomfort as long as he is not on any long-acting potassium oral supplementation. Allergies levofloxacin [From Levaquin] Allergy (Intermediate, Verified 08/07/22 22:50) Hives morphine Allergy (Intermediate, Verified 08/07/22 22:50) Hives sulfamethoxazole [From Bactrim] Allergy (Intermediate, Verified 08/07/22 22:50) Hives ketorolac tromethamine [From Toradol] Allergy (Verified 08/07/22 22:50) Nausea/Vomiting Penicillins Allergy (Verified 08/07/22 22:50) Hives/Rash vancomycin Allergy (Verified 08/07/22 22:50) Hives ondansetron [From Zofran (as hydrochloride)] Adverse Reaction (Mild, Verified 08/07/22 22:50) Nausea/Vomiting amoxicillin [From Augmentin] Adverse Reaction (Verified 08/07/22 22:50) Hives/Rash ciprofloxacin Adverse Reaction (Verified 08/07/22 22:50) Nausea/Vomiting doxycycline Adverse Reaction (Verified 08/07/22 22:50) Nausea/Vomiting sesame seed Adverse Reaction (Verified 08/07/22 22:50) diarrhea pop corn Adverse Reaction (Severe, Uncoded 08/07/22 22:50) diarrhea Home medications list reviewed: Yes Home Medications: Hydromorphone [Dilaudid] 4 mg PO Q8HP PRN 09/25/21 Lisinopril [Zestril] 2.5 mg PO DAILY 08/07/22 Insulin Glargine,Hum.rec.anlog [Semglee] 45 unit SQ DAILY 08/13/22 - Past Medical/Surgical History Diabetic: Yes -: Spina Bifida with hydrocephalus -: Depression -: Insomnia -: suprapubic catheter -: GERD -: Chronic pain syndrome -: Muscle wasting -: Paraplegia -: Shunt revision -: Cholecystectomy -: Foot surgery -: Hip sx BL -: Bilateral hip surgery -: Appendectomy Psychosocial/ Personal History: Patient currently single. He has no children. He is disabled. - Family History Father Medical History: Hypertension Mother Medical History: Hypertension - Social History Smoking Status: Unknown if ever smoked Alcohol use: Yes CD- Drugs: No Caffeine use: No Place of Residence: Home Physical Examination Temp Pulse Resp BP Pulse Ox 97.8 F 93 H 18 111/72 95 11/15/22 20:00 11/15/22 20:00 11/15/22 20:00 11/15/22 20:00 11/15/22 20:00 - Problems (1) Scrotal disorder Current Visit: Yes Status: Acute (2) Painful bladder spasm Current Visit: Yes Status: Acute (3) Chronic suprapubic catheter Current Visit: Yes Status: Chronic (4) Pressure ulcer of unspecified site, unspecified stage Current Visit: Yes Status: Chronic Qualifiers: Pressure injury location: ankle Pressure injury stage: stage 2 Laterality: unspecified laterality Qualified Code(s): L89.502 - Pressure ulcer of unspecified ankle, stage 2 (5) Complicated UTI (urinary tract infection) Current Visit: No Status: Acute Conclusions/Impression: see A/P in HPI Time Spent Managing Pts care (In Minutes): 60 (75mins total time with >60mins F2F and management)
[2022-11-16] MEDS: PIPER TAZO 3.375 GM in NA CHLORIDE 0.9% 100 ML IV SCH ×3 (00:18→16:39)
[2022-11-16] MEDS: HYDROMORPHONE HCL 2 MG/ML inj IV PRN ×4 (03:24→20:31)
--- NOTE | 2022-11-16 05:53 | EKG ---
Test Date: 2022-11-14 Test Time: 16:02:17 Boiler Out: SHAY MEASUREMENT RESULTS: Intervals: Rate: 98 SD: 136 QRSD: 96 QT: 326 QTc: 416 Adel: P: 77 SD: 136 QRS: 75 T: 21 INTERPRETIVE STATEMENTS: Normal sinus rhythm Possible Inferior infarct, age undetermined Abnormal ECG Compared to ECG 06/27/2022 16:54:54 Sinus arrhythmia no longer present Myocardial infarct finding still present Electronically Signed On 11-16-22 05:48:58 CDT by Justin Heredia
[2022-11-16] MEDS: INSULIN -REGULAR HUMAN 50 UNIT/0.5 ML ML SQ SCH ×4 (07:58→20:30)
[2022-11-16] MEDS: MUPIROCIN 2% OINT 22GM TUBE TOP SCH ×2 (07:59→20:29)
[2022-11-16] MEDS: MEDIHONEY 44 ML TOPICAL TUBE TOP SCH (07:59)
[2022-11-16] MEDS: COLLAGENASE 30 GM OINTMENT TOP SCH (08:00)
[2022-11-16] MEDS: JUVEN PACKET PO SCH ×2 (08:00→20:29)
[2022-11-16] MEDS: INSULIN GLARGINE 100 UNIT/ML SQ SCH (08:00)
[2022-11-16] MEDS: NA CHLORIDE 0.9% 1,000 ML IV SCH ×2 (08:37→19:04)
--- NOTE | 2022-11-16 10:00 | RAD REPORT ---
EXAM DESCRIPTION: CT - Abdomen Pelvis Wo Contrast - 11/16/2022 9:06 am CLINICAL HISTORY: perineum wounds, suprapubic cath placement COMPARISON: Abdomen Pelvis Wo Contrast dated 06/08/2022; Abdomen Pelvis W Contrast dated 09/26/19; Abdomen Pelvis Wo Contrast dated 06/05/2021; Abdomen Pelvis W Contrast dated 05/16/2021; Head C Spine Cap Wo Con dated 04/15/2022 TECHNIQUE: Thin cut axial CT imaging of the abdomen and pelvis was performed without IV contrast. Mu ltiplanar reformats were generated and reviewed. All CT scans are performed using dose optimization technique as appropriate and may include automated exposure control or mA/KV adjustment according to patient size. FINDINGS: No suspicious findings in the lung bases. The liver, spleen, and pancreas show no suspicious findings. Status post cholecystectomy. No findings to suggest intra or extrahepatic biliary ductal dilation. New mild right hydroureteronephrosis with ureteric dilation to the level of the right of the ureterov esical junction. No radiopaque calculi. No suspicious contour abnormality within limits of noncontras t evaluation. No dilated bowel loops or bowel wall thickening. No free air, free fluid or inflammatory stranding. N o hernia, mass or bulky lymphadenopathy. The urinary bladder is decompressed with Alcantara and suprapubi c catheters in place, which limits evaluation, however thickening of the bladder wall is again noted. Focal thickening along the right lower anterior abdominal wall muscles, just above the suprapubic ca theter, not significantly changed in degree, although some central hypoattenuation is now noted. Plea se see sagittal image 75 and axial image 80. Peritoneal portion of a [employer] shunt catheter is present. No suspicious bony findings. Tract like soft tissue thickening extending from a sacral ulcer left of midline, to the level of the posterior perirectal space and posterior wall of the anal canal is stable. Soft tissue thickening and edema at the level of the perineum, withdraw/dressing, however no deep subcutaneous soft tissue fat stranding, appreciable fluid collections, or gas are noted. IMPRESSION: New mild right hydroureteronephrosis, without evidence of an obstructing calculus. Findi ngs may relate to an ascending infection. New central hypoattenuation along a small region of soft tissue thickening involving the right lower anterior paramidline abdominal wall muscles, could relate to a developing small collection or abscess . Other stable findings, as above. The right urinary tract findings were communicated to Eren Varela on 11/16/2022 at 09:35 hours.
[2022-11-16] MEDS: PROMETHAZINE INJ 25 MG/ML AMP IV PRN ×2 (12:23→22:25)
--- NOTE | 2022-11-16 18:05 | P.PN ---
Subjective Date of Service: 11/16/22 Primary Care Provider: MONICO Chief Complaint: hyperglycemia Subjective: No new changes Review of Systems 10-point ROS is otherwise unremarkable General: Weakness, Malaise Physical Examination - Vital Signs Temperature: 97.6 F Blood Pressure: 100/49 Pulse: 71 Respirations: 13 Pulse Ox (%): 96 - Physical Exam General: Alert, In no apparent distress HEENT: Atraumatic, PERRLA, EOMI Neck: Supple, JVD not distended Respiratory: Clear to auscultation bilaterally, Normal air movement Cardiovascular: Regular rate/rhythm, Normal S1 S2 Gastrointestinal: Normal bowel sounds, No tenderness Musculoskeletal: No tenderness Integumentary: No rashes Neurological: Normal speech, Normal tone, Normal affect Lymphatics: No axilla or inguinal lymphadenopathy Assessment And Plan - Current Problems (Diagnosis) (1) Pressure ulcer of unspecified site, unspecified stage Current Visit: Yes Status: Chronic Plan: Patient seen by Dr Hong and Dr. Ching. No need for scrotal debridgment. Dr Ching would like to do the sacral wound. However would like to do a colectomy. this is in the interest of letting the wound heal without chronic fecal contamination. Roland has a long history of difficulty with his hygiene in this regard Qualifiers: Pressure injury location: ankle Pressure injury stage: stage 2 Laterality: unspecified laterality Qualified Code(s): L89.502 - Pressure ulcer of unspecified ankle, stage 2 (2) Hyperosmolar non-ketotic state due to type 2 diabetes mellitus Current Visit: No Status: Acute Plan: due to non compliance with insulin. I had a talk with him this morning. He may need therapy. He has a long history of non compliance. This can be frustrating to his providers. More importantly this behavior is most likely shortening his life expectancy. His sugars this morning are in the 150's Stop the insulin drip. Start him on sq insulin and start feeding him (3) Chronic suprapubic catheter Current Visit: Yes Status: Chronic Plan: Is leaking. Will consult Dr. Hong (4) Chronic pain disorder Onset Date: 05/17/17 Current Visit: No Status: Chronic Plan: restart his hydromorphine (5) Spina bifida Onset Date: 05/17/17 Current Visit: No Status: Chronic Plan: Wheelchair bound Qualifiers: Spinal region: lumbar Discharge Plan: Home Plan to discharge in: Greater than 2 days - Code Status/Comfort Care Code Status Assessed: No Physician Review: Patient Assessed, Agree with Above Assessment and Plan Critical Care: No Time Spent Managing PTS Care (In Minutes): 30
[2022-11-16] MEDS ORDERED: NA CHLORIDE 0.9% 100 ML ONE (23:00)
[2022-11-17] MEDS: PIPER TAZO 3.375 GM in NA CHLORIDE 0.9% 100 ML IV SCH ×3 (00:42→16:40)
[2022-11-17] MEDS: HYDROMORPHONE HCL 2 MG/ML inj IV PRN ×4 (03:35→22:57)
[2022-11-17] MEDS: PROMETHAZINE INJ 25 MG/ML AMP IV PRN ×2 (03:36→20:29)
[2022-11-17] MEDS: NA CHLORIDE 0.9% 1,000 ML IV SCH ×2 (06:01→16:41)
[2022-11-17 06:56] LABS: Absolute Lymphocytes (CBC) 1.7 K/uL (0.7-4.9); Hematocrit 38.2 % (39.6-49.0); Lymphocytes % 16.6 % (15.3-44.8); MCV 87.9 fL (80-100); MPV 7.6 fL (7.6-11.3); RBC Red Blood Cell Count 4.34 M/uL (4.33-5.43)
[2022-11-17 07:11] LABS: Albumin 1.7 g/dL (3.4-5.0); Bilirubin Total 0.9 mg/dL (0.2-1.0); Potassium 3.7 mEq/L (3.5-5.1); Protein, Total 6.4 g/dL (6.4-8.2)
[2022-11-17] MEDS: INSULIN -REGULAR HUMAN 50 UNIT/0.5 ML ML SQ SCH ×5 (07:30→20:31)
[2022-11-17] MEDS: HYDROMORPHONE ORAL 4 MG TAB PO PRN (08:18)
[2022-11-17] MEDS: MUPIROCIN 2% OINT 22GM TUBE TOP SCH ×2 (08:19→20:30)
[2022-11-17] MEDS: JUVEN PACKET PO SCH ×2 (08:19→20:32)
[2022-11-17] MEDS: COLLAGENASE 30 GM OINTMENT TOP SCH (08:19)
[2022-11-17] MEDS: INSULIN GLARGINE 100 UNIT/ML SQ SCH ×2 (08:20→20:31)
[2022-11-17] MEDS: MEDIHONEY 44 ML TOPICAL TUBE TOP SCH (08:20)
--- NOTE | 2022-11-17 12:15 | P.PN ---
Subjective Date of Service: 11/17/22 Primary Care Provider: MONICO Chief Complaint: hyperglycemia Subjective: No new changes (Patient plans to make a decision on coloectomy on Saturday) Review of Systems 10-point ROS is otherwise unremarkable Physical Examination - Vital Signs Temperature: 98.5 F Blood Pressure: 145/74 Pulse: 89 Respirations: 18 Pulse Ox (%): 95 - Physical Exam General: Alert, In no apparent distress HEENT: Atraumatic, PERRLA, EOMI Neck: Supple, JVD not distended Respiratory: Clear to auscultation bilaterally, Normal air movement Cardiovascular: Regular rate/rhythm, Normal S1 S2 Gastrointestinal: Normal bowel sounds, No tenderness Musculoskeletal: No tenderness Integumentary: No rashes Neurological: Normal speech, Normal tone, Normal affect Lymphatics: No axilla or inguinal lymphadenopathy Assessment And Plan - Current Problems (Diagnosis) (1) Pressure ulcer of unspecified site, unspecified stage Current Visit: Yes Status: Chronic Plan: Patient seen by Dr Hong and Dr. Ching. No need for scrotal debridgment. Dr Ching would like to do the sacral wound. However would like to do a colectomy. this is in the interest of letting the wound heal without chronic fecal contamination. Roland has a long history of difficulty with his hygiene in this regard Qualifiers: Pressure injury location: ankle Pressure injury stage: stage 2 Laterality: unspecified laterality Qualified Code(s): L89.502 - Pressure ulcer of unspecified ankle, stage 2 (2) Hyperosmolar non-ketotic state due to type 2 diabetes mellitus Current Visit: No Status: Acute Plan: due to non compliance with insulin. I had a talk with him this morning. He may need therapy. He has a long history of non compliance. This can be frustrating to his providers. More importantly this behavior is most likely shortening his life expectancy. His sugars this morning are in the 150's Stop the insulin drip. Start him on sq insulin and start feeding him (3) Chronic suprapubic catheter Current Visit: Yes Status: Chronic Plan: Is leaking. Will consult Dr. Hong (4) Chronic pain disorder Onset Date: 05/17/17 Current Visit: No Status: Chronic Plan: restart his hydromorphine (5) Spina bifida Onset Date: 05/17/17 Current Visit: No Status: Chronic Plan: Wheelchair bound Qualifiers: Spinal region: lumbar (6) Depression Current Visit: Yes Status: Chronic Plan: Patient has been having a long history of non compliance with his medication. Discussed going to a nursing facility to improve his quality of care. He is very willing. The patient has been had a history of depression. 1 suicide attempt in the past. He is not actively suicidal. Will start him an antidepressant and look for a halfway councillor for the patient. I need these reminders that life has been very unfair to Roland. He acts out at times due to this. Qualifiers: Depression Type: major depressive disorder Major depression recurrence: recurrent Active/Remission status: currently active Psychotic features: without psychotic features Discharge Plan: Home Plan to discharge in: 24 Hours - Code Status/Comfort Care Code Status Assessed: No Physician Review: Patient Assessed, Agree with Above Assessment and Plan Critical Care: No Time Spent Managing PTS Care (In Minutes): 30
[2022-11-18] MEDS: PIPER TAZO 3.375 GM in NA CHLORIDE 0.9% 100 ML IV SCH ×3 (00:28→16:42)
[2022-11-18] MEDS: HYDROMORPHONE HCL 2 MG/ML inj IV PRN ×4 (05:06→22:12)
[2022-11-18] MEDS: PROMETHAZINE INJ 25 MG/ML AMP IV PRN ×4 (05:07→22:12)
[2022-11-18] MEDS: NA CHLORIDE 0.9% 1,000 ML IV SCH ×3 (05:07→17:45)
[2022-11-18 06:13] LABS: Hematocrit 39.6 % (39.6-49.0); Lymphocytes % 18.2 % (15.3-44.8); MCV 89.8 fL (80-100); MPV 7.8 fL (7.6-11.3); RBC Red Blood Cell Count 4.41 M/uL (4.33-5.43)
[2022-11-18 06:32] LABS: Albumin 1.8 g/dL (3.4-5.0); Bilirubin Total 0.9 mg/dL (0.2-1.0); Potassium 3.7 mEq/L (3.5-5.1); Protein, Total 6.5 g/dL (6.4-8.2)
[2022-11-18 07:08] LABS: Blood Morphology Comment NOT SEEN (NOT SEEN); Platelet Estimate ADEQ; Platelets, Giant 1+
[2022-11-18] MEDS: INSULIN -REGULAR HUMAN 50 UNIT/0.5 ML ML SQ SCH ×4 (07:30→20:35)
[2022-11-18] MEDS: buPROPion HCL 100 MG TAB PO SCH (08:29)
[2022-11-18] MEDS: JUVEN PACKET PO SCH ×2 (08:30→21:00)
[2022-11-18] MEDS: MEDIHONEY 44 ML TOPICAL TUBE TOP SCH (08:30)
[2022-11-18] MEDS: MUPIROCIN 2% OINT 22GM TUBE TOP SCH ×2 (08:30→20:35)
[2022-11-18] MEDS: COLLAGENASE 30 GM OINTMENT TOP SCH (08:31)
--- NOTE | 2022-11-18 13:40 | P.PN ---
Subjective Date of Service: 11/18/22 Primary Care Provider: MONICO Chief Complaint: hyperglycemia Subjective: No new changes Review of Systems 10-point ROS is otherwise unremarkable Physical Examination - Vital Signs Temperature: 98.9 F Blood Pressure: 117/74 Pulse: 99 Respirations: 18 Pulse Ox (%): 94 - Physical Exam General: Alert, In no apparent distress HEENT: Atraumatic, PERRLA, EOMI Neck: Supple, JVD not distended Respiratory: Clear to auscultation bilaterally, Normal air movement Cardiovascular: Regular rate/rhythm, Normal S1 S2 Gastrointestinal: Normal bowel sounds, No tenderness Musculoskeletal: No tenderness Integumentary: No rashes Neurological: Normal speech, Normal tone, Normal affect Lymphatics: No axilla or inguinal lymphadenopathy Assessment And Plan - Current Problems (Diagnosis) (1) Pressure ulcer of unspecified site, unspecified stage Current Visit: Yes Status: Chronic Plan: Patient seen by Dr Hong and Dr. Ching. No need for scrotal debridgment. Dr Ching would like to do the sacral wound. However would like to do a colectomy. this is in the interest of letting the wound heal without chronic fecal contamination. Roland has a long history of difficulty with his hygiene in this regard Qualifiers: Pressure injury location: ankle Pressure injury stage: stage 2 Laterality: unspecified laterality Qualified Code(s): L89.502 - Pressure ulcer of unspecified ankle, stage 2 (2) Hyperosmolar non-ketotic state due to type 2 diabetes mellitus Current Visit: No Status: Acute Plan: due to non compliance with insulin. I had a talk with him this morning. He may need therapy. He has a long history of non compliance. This can be frustrating to his providers. More importantly this behavior is most likely shortening his life expectancy. His sugars this morning are in the 150's Stop the insulin drip. Start him on sq insulin and start feeding him (3) Chronic suprapubic catheter Current Visit: Yes Status: Chronic Plan: Is leaking. Will consult Dr. Hong (4) Chronic pain disorder Onset Date: 05/17/17 Current Visit: No Status: Chronic Plan: restart his hydromorphine (5) Spina bifida Onset Date: 05/17/17 Current Visit: No Status: Chronic Plan: Wheelchair bound Qualifiers: Spinal region: lumbar (6) Depression Current Visit: Yes Status: Chronic Plan: Patient has been having a long history of non compliance with his medication. Discussed going to a nursing facility to improve his quality of care. He is very willing. The patient has been had a history of depression. 1 suicide attempt in the past. He is not actively suicidal. Will start him an antidepressant and look for a assisted councillor for the patient. I need these reminders that life has been very unfair to Roland. He acts out at times due to this. Qualifiers: Depression Type: major depressive disorder Major depression recurrence: recurrent Active/Remission status: currently active Psychotic features: without psychotic features Discharge Plan: Home Plan to discharge in: 24 Hours - Code Status/Comfort Care Code Status Assessed: No Physician Review: Patient Assessed, Agree with Above Assessment and Plan Critical Care: No Time Spent Managing PTS Care (In Minutes): 20
[2022-11-19] MEDS: PIPER TAZO 3.375 GM in NA CHLORIDE 0.9% 100 ML IV SCH ×3 (01:13→16:05)
[2022-11-19] MEDS: NA CHLORIDE 0.9% 1,000 ML IV SCH ×3 (03:45→23:45)
[2022-11-19] MEDS: PROMETHAZINE INJ 25 MG/ML AMP IV PRN ×3 (03:51→23:10)
[2022-11-19] MEDS: HYDROMORPHONE HCL 2 MG/ML inj IV PRN ×4 (03:51→23:10)
[2022-11-19 06:07] LABS: Absolute Lymphocytes (CBC) 1.7 K/uL (0.7-4.9); Hematocrit 35.8 % (39.6-49.0); Lymphocytes % 16.3 % (15.3-44.8); MCV 88.6 fL (80-100); MPV 7.3 fL (7.6-11.3); RBC Red Blood Cell Count 4.04 M/uL (4.33-5.43)
[2022-11-19 06:30] LABS: Albumin 1.7 g/dL (3.4-5.0); Bilirubin Total 0.8 mg/dL (0.2-1.0); Potassium 3.7 mEq/L (3.5-5.1); Protein, Total 6.3 g/dL (6.4-8.2)
[2022-11-19] MEDS: JUVEN PACKET PO SCH ×2 (08:22→20:14)
[2022-11-19] MEDS: buPROPion HCL 100 MG TAB PO SCH (08:22)
[2022-11-19] MEDS: INSULIN -REGULAR HUMAN 50 UNIT/0.5 ML ML SQ SCH ×4 (08:23→20:11)
[2022-11-19] MEDS: INSULIN GLARGINE 100 UNIT/ML SQ SCH ×2 (08:23→20:11)
[2022-11-19] MEDS: MUPIROCIN 2% OINT 22GM TUBE TOP SCH ×2 (08:24→20:12)
[2022-11-19] MEDS: COLLAGENASE 30 GM OINTMENT TOP SCH (08:25)
[2022-11-19] MEDS: MEDIHONEY 44 ML TOPICAL TUBE TOP SCH (08:25)
[2022-11-19] MEDS ORDERED: HYDROMORPHONE HCL 2 MG/ML inj IM ONE (14:01)
[2022-11-19] MEDS ORDERED: HYDROMORPHONE HCL 2 MG/ML inj IV ONE (14:18)
--- NOTE | 2022-11-19 14:30 | P.PN ---
Subjective Date of Service: 11/19/22 Primary Care Provider: MONICO Chief Complaint: hyperglycemia Subjective: No new changes (patient being cleaned after a bowel movement. He agrees for the reasoning for a colectomy) Review of Systems 10-point ROS is otherwise unremarkable Physical Examination - Vital Signs Temperature: 98.0 F Blood Pressure: 110/59 Pulse: 98 Respirations: 18 Pulse Ox (%): 96 - Physical Exam General: Alert, In no apparent distress HEENT: Atraumatic, PERRLA, EOMI Neck: Supple, JVD not distended Respiratory: Clear to auscultation bilaterally, Normal air movement Cardiovascular: Regular rate/rhythm, Normal S1 S2 Gastrointestinal: Normal bowel sounds, No tenderness Musculoskeletal: No tenderness Integumentary: No rashes Neurological: Normal speech, Normal tone, Normal affect Lymphatics: No axilla or inguinal lymphadenopathy Assessment And Plan - Current Problems (Diagnosis) (1) Pressure ulcer of unspecified site, unspecified stage Current Visit: Yes Status: Chronic Plan: Patient seen by Dr Hong and Dr. Ching. No need for scrotal debridgment. Jaiden Ching would like to do the sacral wound. However would like to do a colectomy. this is in the interest of letting the wound heal without chronic fecal contamination. Roland has a long history of difficulty with his hygiene in this regard 5.8 patient seems amenable to colectomy. Will discuss this with Dr. Ching Qualifiers: Pressure injury location: ankle Pressure injury stage: stage 2 Laterality: unspecified laterality Qualified Code(s): L89.502 - Pressure ulcer of unspecified ankle, stage 2 (2) Hyperosmolar non-ketotic state due to type 2 diabetes mellitus Current Visit: No Status: Acute Plan: due to non compliance with insulin. I had a talk with him this morning. He may need therapy. He has a long history of non compliance. This can be frustrating to his providers. More importantly this behavior is most likely shortening his life expectancy. His sugars this morning are in the 150's Stop the insulin drip. Start him on sq insulin and start feeding him (3) Chronic suprapubic catheter Current Visit: Yes Status: Chronic Plan: Is leaking. Will consult Dr. Hong (4) Chronic pain disorder Onset Date: 05/17/17 Current Visit: No Status: Chronic Plan: restart his hydromorphine (5) Spina bifida Onset Date: 05/17/17 Current Visit: No Status: Chronic Plan: Wheelchair bound Qualifiers: Spinal region: lumbar (6) Depression Current Visit: Yes Status: Chronic Plan: Patient has been having a long history of non compliance with his medication. Discussed going to a nursing facility to improve his quality of care. He is very willing. The patient has been had a history of depression. 1 suicide attempt in the past. He is not actively suicidal. Will start him an antidepressant and look for a detention councillor for the patient. I need these reminders that life has been very unfair to Roland. He acts out at times due to this. Qualifiers: Depression Type: major depressive disorder Major depression recurrence: recurrent Active/Remission status: currently active Psychotic features: without psychotic features Discharge Plan: [facility] Plan to discharge in: Greater than 2 days - Code Status/Comfort Care Code Status Assessed: No Physician Review: Patient Assessed, Agree with Above Assessment and Plan Critical Care: No Time Spent Managing PTS Care (In Minutes): 20
[2022-11-20] MEDS: PIPER TAZO 3.375 GM in NA CHLORIDE 0.9% 100 ML IV SCH ×4 (00:50→20:24)
[2022-11-20] MEDS: INSULIN -REGULAR HUMAN 50 UNIT/0.5 ML ML SQ SCH ×4 (07:30→20:26)
--- NOTE | 2022-11-20 08:10 | P.PN ---
Subjective Date of Service: 11/20/22 Primary Care Provider: MONICO Chief Complaint: hyperglycemia Subjective: No new changes (Patient agreed to a coloectomy for me) Review of Systems 10-point ROS is otherwise unremarkable Physical Examination - Vital Signs Temperature: 97.9 F Blood Pressure: 141/58 Pulse: 103 Respirations: 18 Pulse Ox (%): 97 - Physical Exam General: Alert, In no apparent distress HEENT: Atraumatic, PERRLA, EOMI Neck: Supple, JVD not distended Respiratory: Clear to auscultation bilaterally, Normal air movement Cardiovascular: Regular rate/rhythm, Normal S1 S2 Gastrointestinal: Normal bowel sounds, No tenderness Musculoskeletal: No tenderness Integumentary: No rashes Neurological: Normal speech, Normal tone, Normal affect Lymphatics: No axilla or inguinal lymphadenopathy Assessment And Plan - Current Problems (Diagnosis) (1) Pressure ulcer of unspecified site, unspecified stage Current Visit: Yes Status: Chronic Plan: Patient seen by Dr Hong and Dr. Ching. No need for scrotal debridgment. Dr Ching would like to do the sacral wound. However would like to do a colectomy. this is in the interest of letting the wound heal without chronic fecal contamination. Roland has a long history of difficulty with his hygiene in this regard 5.8 patient seems amenable to colectomy. Will discuss this with Dr. Ching Qualifiers: Pressure injury location: ankle Pressure injury stage: stage 2 Laterality: unspecified laterality Qualified Code(s): L89.502 - Pressure ulcer of unspecified ankle, stage 2 (2) Hyperosmolar non-ketotic state due to type 2 diabetes mellitus Current Visit: No Status: Acute Plan: due to non compliance with insulin. I had a talk with him this morning. He may need therapy. He has a long history of non compliance. This can be frustrating to his providers. More importantly this behavior is most likely s hortening his life expectancy. His sugars this morning are in the 150's Stop the insulin drip. Start him on sq insulin and start feeding him (3) Chronic suprapubic catheter Current Visit: Yes Status: Chronic Plan: Is leaking. Will consult Dr. Hong (4) Chronic pain disorder Onset Date: 05/17/17 Current Visit: No Status: Chronic Plan: restart his hydromorphine (5) Spina bifida Onset Date: 05/17/17 Current Visit: No Status: Chronic Plan: Wheelchair bound Qualifiers: Spinal region: lumbar (6) Depression Current Visit: Yes Status: Chronic Plan: Patient has been having a long history of non compliance with his medication. Discussed going to a nursing facility to improve his quality of care. He is very willing. The patient has been had a history of depression. 1 suicide attempt in the past. He is not actively suicidal. Will start him an antidepressant and look for a intermediate accountant councillor for the patient. I need these reminders that life has been very unfair to Roland. He acts out at times due to this. Qualifiers: Depression Type: major depressive disorder Major depression recurrence: recurrent Active/Remission status: currently active Psychotic features: without psychotic features Discharge Plan: [facility] Plan to discharge in: 48 Hours - Code Status/Comfort Care Code Status Assessed: No Physician Review: Patient Assessed, Agree with Above Assessment and Plan Critical Care: No Time Spent Managing PTS Care (In Minutes): 20
[2022-11-20] MEDS: Mupirocin NASAL 2 APPL/1 GM TUBE NAS SCH ×2 (09:00→21:00)
[2022-11-20] MEDS: JUVEN PACKET PO SCH ×2 (09:00→20:33)
[2022-11-20] MEDS: NA CHLORIDE 0.9% 1,000 ML IV SCH ×2 (09:45→16:38)
[2022-11-20] MEDS: MUPIROCIN 2% OINT 22GM TUBE TOP SCH ×2 (09:51→21:00)
[2022-11-20] MEDS: COLLAGENASE 30 GM OINTMENT TOP SCH (09:52)
[2022-11-20] MEDS: MEDIHONEY 44 ML TOPICAL TUBE TOP SCH (09:52)
[2022-11-20] MEDS: buPROPion HCL 100 MG TAB PO SCH (09:52)
[2022-11-20] MEDS: INSULIN GLARGINE 100 UNIT/ML SQ SCH ×2 (10:30→20:27)
--- NOTE | 2022-11-20 11:51 | P.PN ---
Date of Service: 11/20/22 37-year-old gentleman known to me from prior consult 08/09/2022, wheelchair-bound with spina bifida, hydrocephalus, IDDM, GERD, and paraplegia with chronic indwelling suprapubic catheter managed at [facility] inconsistently, with bladder spasms/severe contraction with urethral incontinence and rosie-suprapubic catheter incontinence causing scrotal and perineal skin maceration and necrosis, now with urethral Alcantara catheter and suprapubic tube within the bladder, maximally diverting his urine. Examination: Patient well-appearing and in no acute distress Scrotum without any sign of crepitus. Persistent scrotal erythema, but generalized improvement in the appearance of the scrotal skin. On the inferior scrotum in the midline, there is a persistent area approximately 4 cm in diameter of skin desquamation with an approximately 1.5 to 2 cm area of superficial necrosis. I reapplied a piece of Aquacel silver dressing covering the area of desquamated skin and necrosis. A/Recs: 37-year-old gentleman known to me from prior consult 08/09/2022, wheelchair-bound with spina bifida, hydrocephalus, IDDM, GERD, and paraplegia with chronic indwelling suprapubic catheter managed at [facility] inconsistently, with bladder spasms/severe contraction with urethral incontinence and rosie-suprapubic catheter incontinence causing scrotal and perineal skin maceration and necrosis, now with urethral Alcantara catheter and suprapubic tube within the bladder, maximally diverting his urine, with improvement in the generalized scrotal tissues appearance but small area of persistent necrosis superficially. -Recommend continued wound care with Aquacel silver applied to the area of inferior scrotal skin desquamation and necrosis, but I defer management to wound care nursing. It is my impression that the necrotic area of skin will likely slough and not require formal debridement. That said, if Dr. Muñoz is planning operative management, the necrotic skin can be formally debrided at that time hopefully. -Continue maximal urine diversion, which is successful at keeping the scrotal perineal skin dry. -Maximize anticholinergic therapy with Ditropan 5 mg p.o. every 8 hours -consider tailoring antimicrobial therapy since urine cx sensitive to Ancef, which is effective for skin, and would be effective for the scrotal/perineal skin; recognizing it may be an adequate if infection of a decubitus ulcer is present
--- NOTE | 2022-11-20 12:43 | RAD REPORT ---
EXAM DESCRIPTION: [facility] Single View11/20/2022 12:22 pm CLINICAL HISTORY: Device placement PICC line placement FINDINGS: A PICC line has been inserted with its tip in the SVC
[2022-11-20] MEDS: PROMETHAZINE INJ 25 MG/ML AMP IV PRN ×2 (13:09→18:38)
[2022-11-20] MEDS: HYDROMORPHONE HCL 2 MG/ML inj IV PRN ×2 (13:09→18:38)
[2022-11-21] MEDS: HYDROMORPHONE HCL 2 MG/ML inj IV PRN ×3 (00:27→12:50)
[2022-11-21] MEDS: PIPER TAZO 3.375 GM in NA CHLORIDE 0.9% 100 ML IV SCH ×2 (00:28→08:57)
[2022-11-21] MEDS: PROMETHAZINE INJ 25 MG/ML AMP IV PRN ×4 (00:33→18:24)
[2022-11-21] MEDS: NA CHLORIDE 0.9% 1,000 ML IV SCH ×2 (05:44→18:24)
[2022-11-21] MEDS: COLLAGENASE 30 GM OINTMENT TOP SCH (08:58)
[2022-11-21] MEDS: Mupirocin NASAL 2 APPL/1 GM TUBE NAS SCH ×2 (08:59→21:00)
[2022-11-21] MEDS: MEDIHONEY 44 ML TOPICAL TUBE TOP SCH (08:59)
[2022-11-21] MEDS: MUPIROCIN 2% OINT 22GM TUBE TOP SCH (09:00)
[2022-11-21] MEDS: JUVEN PACKET PO SCH ×2 (09:00→21:00)
[2022-11-21] MEDS: INSULIN -REGULAR HUMAN 50 UNIT/0.5 ML ML SQ SCH ×4 (09:01→21:23)
[2022-11-21] MEDS: buPROPion HCL 100 MG TAB PO SCH (09:07)
--- NOTE | 2022-11-21 12:39 | P.PN ---
Subjective Date of Service: 11/21/22 Primary Care Provider: MONICO Chief Complaint: hyperglycemia Subjective: No new changes Review of Systems 10-point ROS is otherwise unremarkable Physical Examination - Vital Signs Temperature: 97.1 F Blood Pressure: 119/67 Pulse: 107 Respirations: 18 Pulse Ox (%): 98 - Physical Exam General: Alert, In no apparent distress HEENT: Atraumatic, PERRLA, EOMI Neck: Supple, JVD not distended Respiratory: Clear to auscultation bilaterally, Normal air movement Cardiovascular: Regular rate/rhythm, Normal S1 S2 Gastrointestinal: Normal bowel sounds, No tenderness Musculoskeletal: No tenderness Integumentary: No rashes Neurological: Normal speech, Normal tone, Normal affect Lymphatics: No axilla or inguinal lymphadenopathy Assessment And Plan - Current Problems (Diagnosis) (1) Pressure ulcer of unspecified site, unspecified stage Current Visit: Yes Status: Chronic Plan: Patient seen by Dr Hong and Dr. Ching. No need for scrotal debridgment. Dr Ching would like to do the sacral wound. However would like to do a colectomy. this is in the interest of letting the wound heal without chronic fecal contamination. Roland has a long history of difficulty with his hygiene in this regard 5.10 surgery would like to wait on debridgment. Will see if we can get him to a correction. Manage wound care and insulin. Then schedule surgery from there Qualifiers: Pressure injury location: ankle Pressure injury stage: stage 2 Laterality: unspecified laterality Qualified Code(s): L89.502 - Pressure ulcer of unspecified ankle, stage 2 (2) Hyperosmolar non-ketotic state due to type 2 diabetes mellitus Current Visit: No Status: Acute Plan: due to non compliance with insulin. I had a talk with him this morning. He may need therapy. He has a long history of non compliance. This can be frustrating to his providers. More importantly this behavior is most likely shortening his life expectancy. His sugars this morning are in the 150's Stop the insulin drip. Start him on sq insulin and start feeding him (3) Chronic suprapubic catheter Current Visit: Yes Status: Chronic Plan: Is leaking. Will consult Dr. Hong (4) Chronic pain disorder Onset Date: 05/17/17 Current Visit: No Status: Chronic Plan: restart his hydromorphine (5) Spina bifida Onset Date: 05/17/17 Current Visit: No Status: Chronic Plan: Wheelchair bound Qualifiers: Spinal region: lumbar (6) Depression Current Visit: Yes Status: Chronic Plan: Patient has been having a long history of non compliance with his medication. Discussed going to a nursing facility to improve his quality of care. He is very willing. The patient has been had a history of depression. 1 suicide attempt in the past. He is not actively suicidal. Will start him an antidepressant and look for a ad terminal makeup operator councillor for the patient. I need these reminders that life has been very unfair to Roland. He acts out at times due to this. Qualifiers: Depression Type: major depressive disorder Major depression recurrence: recurrent Active/Remission status: currently active Psychotic features: without psychotic features Discharge Plan: Home Plan to discharge in: 24 Hours - Code Status/Comfort Care Code Status Assessed: No Physician Review: Patient Assessed, Agree with Above Assessment and Plan Critical Care: No Time Spent Managing PTS Care (In Minutes): 20
[2022-11-22] MEDS ORDERED: NA CHLORIDE 0.9% 0 ML ONE (05:21)
[2022-11-22] MEDS: NA CHLORIDE 0.9% 1,000 ML IV SCH ×3 (05:22→21:23)
[2022-11-22] MEDS: MUPIROCIN 2% OINT 22GM TUBE TOP SCH ×3 (07:07→21:22)
[2022-11-22] MEDS: INSULIN -REGULAR HUMAN 50 UNIT/0.5 ML ML SQ SCH ×4 (09:05→21:21)
[2022-11-22] MEDS: INSULIN GLARGINE 100 UNIT/ML SQ SCH (09:06)
[2022-11-22] MEDS: buPROPion HCL 100 MG TAB PO SCH (09:06)
[2022-11-22] MEDS: JUVEN PACKET PO SCH ×2 (09:06→21:00)
[2022-11-22] MEDS: MEDIHONEY 44 ML TOPICAL TUBE TOP SCH (09:08)
[2022-11-22] MEDS: Mupirocin NASAL 2 APPL/1 GM TUBE NAS SCH ×2 (09:11→21:20)
--- NOTE | 2022-11-22 13:23 | P.PN ---
Subjective Date of Service: 11/22/22 Primary Care Provider: MONICO Chief Complaint: hyperglycemia Subjective: No new changes Review of Systems pain Physical Examination - Vital Signs Temperature: 97.8 F Blood Pressure: 101/58 Pulse: 102 Respirations: 18 Pulse Ox (%): 98 - Physical Exam General: Alert, In no apparent distress HEENT: Atraumatic, PERRLA, EOMI Neck: Supple, JVD not distended Respiratory: Clear to auscultation bilaterally, Normal air movement Cardiovascular: Regular rate/rhythm, Normal S1 S2 Gastrointestinal: Normal bowel sounds, No tenderness Musculoskeletal: No tenderness Integumentary: No rashes Neurological: Normal speech, Normal tone, Normal affect Lymphatics: No axilla or inguinal lymphadenopathy Assessment And Plan - Current Problems (Diagnosis) (1) Pressure ulcer of unspecified site, unspecified stage Current Visit: Yes Status: Chronic Plan: Patient seen by Dr Hong and Dr. Ching. No need for scrotal debridgment. Dr Ching would like to do the sacral wound. However would like to do a colectomy. this is in the interest of letting the wound heal without chronic fecal contamination. Roland has a long history of difficulty with his hygiene in this regard 5.11 Patient not accepted at [facility]. state he has no electricity at home. Will keep him in house and try different facilities Qualifiers: Pressure injury location: ankle Pressure injury stage: stage 2 Laterality: unspecified laterality Qualified Code(s): L89.502 - Pressure ulcer of unspecified ankle, stage 2 (2) Hyperosmolar non-ketotic state due to type 2 diabetes mellitus Current Visit: No Status: Acute Plan: due to non compliance with insulin. I had a talk with him this morning. He may need therapy. He has a long history of non compliance. This can be frustrating to his providers. More importantly this behavior is most likely shortening his life expectancy. His sugars this morning are in the 150's Stop the insulin drip. Start him on sq insulin and start feeding him (3) Chronic suprapubic catheter Current Visit: Yes Status: Chronic Plan: Is leaking. Will consult Dr. Hong (4) Chronic pain disorder Onset Date: 05/17/17 Current Visit: No Status: Chronic Plan: restart his hydromorphine (5) Spina bifida Onset Date: 05/17/17 Current Visit: No Status: Chronic Plan: Wheelchair bound Qualifiers: Spinal region: lumbar (6) Depression Current Visit: Yes Status: Chronic Plan: Patient has been having a long history of non compliance with his medication. Discussed going to a nursing facility to improve his quality of care. He is very willing. The patient has been had a history of depression. 1 suicide attempt in the past. He is not actively suicidal. Will start him an antidepressant and look for a half-way councillor for the patient. I need the se reminders that life has been very unfair to Roland. He acts out at times due to this. Qualifiers: Depression Type: major depressive disorder Major depression recurrence: recurrent Active/Remission status: currently active Psychotic features: without psychotic features Discharge Plan: [facility] Plan to discharge in: Greater than 2 days - Code Status/Comfort Care Code Status Assessed: No Physician Review: Patient Assessed, Agree with Above Assessment and Plan Critical Care: No Time Spent Managing PTS Care (In Minutes): 250
[2022-11-22] MEDS ORDERED: HYDROMORPHONE HCL 2 MG/ML inj IV ONE (13:24)
[2022-11-23] MEDS: PROMETHAZINE INJ 25 MG/ML AMP IV PRN ×2 (04:46→22:09)
[2022-11-23] MEDS: INSULIN -REGULAR HUMAN 50 UNIT/0.5 ML ML SQ SCH ×4 (07:30→20:58)
[2022-11-23] MEDS: NA CHLORIDE 0.9% 1,000 ML IV SCH ×2 (07:45→17:45)
[2022-11-23] MEDS: JUVEN PACKET PO SCH ×2 (09:00→20:53)
[2022-11-23] MEDS: MUPIROCIN 2% OINT 22GM TUBE TOP SCH ×2 (09:00→20:57)
[2022-11-23] MEDS: MEDIHONEY 44 ML TOPICAL TUBE TOP SCH (09:02)
[2022-11-23] MEDS: buPROPion HCL 100 MG TAB PO SCH (09:02)
[2022-11-23] MEDS: COLLAGENASE 30 GM OINTMENT TOP SCH (09:03)
[2022-11-23] MEDS: Mupirocin NASAL 2 APPL/1 GM TUBE NAS SCH ×2 (09:06→20:53)
[2022-11-23] MEDS: INSULIN GLARGINE 100 UNIT/ML SQ SCH (09:16)
[2022-11-23] MEDS ORDERED: HYDROMORPHONE HCL 0.5 MG/0.5 ML INJ IV PRN (16:03)
--- NOTE | 2022-11-23 16:06 | P.PN ---
Subjective Date of Service: 11/23/22 Primary Care Provider: MONICO Chief Complaint: hyperglycemia Subjective: No new changes (patient states he wont go to a nursing facility) Review of Systems 10-point ROS is otherwise unremarkable Physical Examination - Vital Signs Temperature: 97.6 F Blood Pressure: 132/72 Pulse: 103 Respirations: 18 Pulse Ox (%): 95 - Physical Exam General: Alert, In no apparent distress HEENT: Atraumatic, PERRLA, EOMI Neck: Supple, JVD not distended Respiratory: Clear to auscultation bilaterally, Normal air movement Cardiovascular: Regular rate/rhythm, Normal S1 S2 Gastrointestinal: Normal bowel sounds, No tenderness Musculoskeletal: No tenderness Integumentary: No rashes Neurological: Normal speech, Normal tone, Normal affect Lymphatics: No axilla or inguinal lymphadenopathy Assessment And Plan - Current Problems (Diagnosis) (1) Pressure ulcer of unspecified site, unspecified stage Current Visit: Yes Status: Chronic Plan: Patient seen by Dr Hong and Dr. Ching. No need for scrotal debridgment. Dr Ching would like to do the sacral wound. However would like to do a colectomy. this is in the interest of letting the wound heal without chronic fecal contamination. Roland has a long history of difficulty with his hygiene in this regard 5.12 will keep him till he gets a coloectomy. Sending him home now. He is likely not to take his insulin. Sit in his filth and come back very septic. Qualifiers: Pressure injury location: ankle Pressure injury stage: stage 2 Laterality: unspecified laterality Qualified Code(s): L89.502 - Pressure ulcer of unspecified ankle, stage 2 (2) Hyperosmolar non-ketotic state due to type 2 diabetes mellitus Current Visit: No Status: Acute Plan: due to non compliance with insulin. I had a talk with him this morning. He may need therapy. He has a long history of non compliance. This can be frustrating to his providers. More importantly this behavior is most likely shortening his life expectancy. His sugars this morning are in the 150's Stop the insulin drip. Start him on sq insulin and start feeding him (3) Chronic suprapubic catheter Current Visit: Yes Status: Chronic Plan: Is leaking. Will consult Dr. Hong (4) Chronic pain disorder Onset Date: 05/17/17 Current Visit: No Status: Chronic Plan: restart his hydromorphine (5) Spina bifida Onset Date: 05/17/17 Current Visit: No Status: Chronic Plan: Wheelchair bound Qualifiers: Spinal region: lumbar (6) Depression Current Visit: Yes Status: Chronic Plan: Patient has been having a long history of non compliance with his medication. Discussed going to a nursing facility to improve his quality of care. He is very willing. The patient has been had a history of depression. 1 suicide attempt in the past. He is not actively suicidal. Will start him an antidepressant and look for a long lines operator councillor for the patient. I need these reminders that life has been very unfair to Roland. He acts out at times due to this. Qualifiers: Depression Type: major depressive disorder Major depression recurrence: recurrent Active/Remission status: currently active Psychotic features: without psychotic features Physician Review: Patient Assessed, Agree with Above Assessment and Plan
[2022-11-23] MEDS: HYDROMORPHONE HCL 2 MG/ML inj IV PRN (22:09)
[2022-11-24] MEDS: HYDROMORPHONE HCL 2 MG/ML inj IV PRN ×6 (02:11→22:07)
[2022-11-24] MEDS: NA CHLORIDE 0.9% 1,000 ML IV SCH ×4 (02:11→23:45)
[2022-11-24] MEDS: PROMETHAZINE INJ 25 MG/ML AMP IV PRN ×2 (06:10→18:28)
[2022-11-24] MEDS: INSULIN -REGULAR HUMAN 50 UNIT/0.5 ML ML SQ SCH ×4 (07:30→21:39)
[2022-11-24] MEDS: Mupirocin NASAL 2 APPL/1 GM TUBE NAS SCH ×2 (09:00→21:38)
[2022-11-24] MEDS: COLLAGENASE 30 GM OINTMENT TOP SCH (09:00)
[2022-11-24] MEDS: JUVEN PACKET PO SCH ×2 (09:00→21:00)
[2022-11-24] MEDS: MUPIROCIN 2% OINT 22GM TUBE TOP SCH ×2 (09:00→21:40)
[2022-11-24] MEDS: MEDIHONEY 44 ML TOPICAL TUBE TOP SCH (09:00)
[2022-11-24] MEDS: buPROPion HCL 100 MG TAB PO SCH (09:42)
[2022-11-24] MEDS: INSULIN GLARGINE 100 UNIT/ML SQ SCH (12:20)
--- NOTE | 2022-11-24 14:19 | P.PN ---
Subjective Date of Service: 11/24/22 Primary Care Provider: MONICO Chief Complaint: hyperglycemia Subjective: No new changes Review of Systems 10-point ROS is otherwise unremarkable Physical Examination - Vital Signs Temperature: 98.7 F Blood Pressure: 112/69 Pulse: 105 Respirations: 20 Pulse Ox (%): 95 - Physical Exam General: Alert, In no apparent distress HEENT: Atraumatic, PERRLA, EOMI Neck: Supple, JVD not distended Respiratory: Clear to auscultation bilaterally, Normal air movement Cardiovascular: Regular rate/rhythm, Normal S1 S2 Gastrointestinal: Normal bowel sounds, No tenderness Musculoskeletal: No tenderness Integumentary: No rashes Neurological: Normal speech, Normal tone, Normal affect Lymphatics: No axilla or inguinal lymphadenopathy Assessment And Plan - Current Problems (Diagnosis) (1) Pressure ulcer of unspecified site, unspecified stage Current Visit: Yes Status: Chronic Plan: Patient seen by Dr Hong and Dr. Ching. No need for scrotal debridgment. Dr Ching would like to do the sacral wound. However would like to do a colectomy. this is in the interest of letting the wound heal without chronic fecal contamination. Roland has a long history of difficulty with his hygiene in this regard 5.12 will keep him till he gets a coloectomy. Sending him home now. He is likely not to take his insulin. Sit in his filth and come back very septic. Qualifiers: Pressure injury location: ankle Pressure injury stage: stage 2 Laterality: unspecified laterality Qualified Code(s): L89.502 - Pressure ulcer of unspecified ankle, stage 2 (2) Hyperosmolar non-ketotic state due to type 2 diabetes mellitus Current Visit: No Status: Acute Plan: due to non compliance with insulin. I had a talk with him this morning. He may need therapy. He has a long history of non compliance. This can be frustrating to his providers. More importantly this behavior is most likely shortening his life expectancy. His sugars this morning are in the 150's Stop the insulin drip. Start him on sq insulin and start feeding him (3) Chronic suprapubic catheter Current Visit: Yes Status: Chronic Plan: Is leaking. Will consult Dr. Hong (4) Chronic pain disorder Onset Date: 05/17/17 Current Visit: No Status: Chronic Plan: restart his hydromorphine (5) Spina bifida Onset Date: 05/17/17 Current Visit: No Status: Chronic Plan: Wheelchair bound Qualifiers: Spinal region: lumbar (6) Depression Current Visit: Yes Status: Chronic Plan: Patient has been having a long history of non compliance with his medication. Discussed going to a nursing facility to improve his quality of care. He is very willing. The patient has been had a history of depression. 1 suicide attempt in the past. He is not actively suicidal. Will start him an antidepressant and look for a terminal carman councillor for the patient. I need these reminders that life has been very unfair to Roland. He acts out at times due to this. Qualifiers: Depression Type: major depressive disorder Major depression recurrence: recurrent Active/Remission status: currently active Psychotic features: without psychotic features Discharge Plan: Home Plan to discharge in: 24 Hours - Code Status/Comfort Care Code Status Assessed: No Physician Review: Patient Assessed, Agree with Above Assessment and Plan Critical Care: No Time Spent Managing PTS Care (In Minutes): 20
[2022-11-25] MEDS: PROMETHAZINE INJ 25 MG/ML AMP IV PRN ×3 (03:28→21:28)
[2022-11-25] MEDS: HYDROMORPHONE HCL 2 MG/ML inj IV PRN ×5 (03:28→20:05)
[2022-11-25] MEDS: INSULIN GLARGINE 100 UNIT/ML SQ SCH (08:39)
[2022-11-25] MEDS: NA CHLORIDE 0.9% 1,000 ML IV SCH (08:39)
[2022-11-25] MEDS: buPROPion HCL 100 MG TAB PO SCH (08:41)
[2022-11-25] MEDS: INSULIN -REGULAR HUMAN 50 UNIT/0.5 ML ML SQ SCH ×4 (08:41→21:00)
[2022-11-25] MEDS: MEDIHONEY 44 ML TOPICAL TUBE TOP SCH (08:43)
[2022-11-25] MEDS: MUPIROCIN 2% OINT 22GM TUBE TOP SCH ×2 (08:44→21:00)
[2022-11-25] MEDS: COLLAGENASE 30 GM OINTMENT TOP SCH (08:44)
[2022-11-25] MEDS: JUVEN PACKET PO SCH ×2 (08:45→21:00)
--- NOTE | 2022-11-25 14:51 | P.PN ---
Subjective Date of Service: 11/25/22 Primary Care Provider: MONICO Chief Complaint: hyperglycemia Subjective: No new changes Review of Systems 10-point ROS is otherwise unremarkable Physical Examination - Vital Signs Temperature: 98.1 F Blood Pressure: 111/64 Pulse: 103 Respirations: 14 Pulse Ox (%): 95 - Physical Exam General: Alert, In no apparent distress HEENT: Atraumatic, PERRLA, EOMI Neck: Supple, JVD not distended Respiratory: Clear to auscultation bilaterally, Normal air movement Cardiovascular: Regular rate/rhythm, Normal S1 S2 Gastrointestinal: Normal bowel sounds, No tenderness Musculoskeletal: No tenderness Integumentary: No rashes Neurological: Normal speech, Normal tone, Normal affect Lymphatics: No axilla or inguinal lymphadenopathy Assessment And Plan - Current Problems (Diagnosis) (1) Pressure ulcer of unspecified site, unspecified stage Current Visit: Yes Status: Chronic Plan: Patient seen by Dr Hong and Dr. Ching. No need for scrotal debridgment. Dr Ching would like to do the sacral wound. However would like to do a colectomy. this is in the interest of letting the wound heal without chronic fecal contamination. Roland has a long history of difficulty with his hygiene in this regard 5.12 will keep him till he gets a coloectomy. Sending him home now. He is likely not to take his insulin. Sit in his filth and come back very septic. Qualifiers: Pressure injury location: ankle Pressure injury stage: stage 2 Laterality: unspecified laterality Qualified Code(s): L89.502 - Pressure ulcer of unspecified ankle, stage 2 (2) Hyperosmolar non-ketotic state due to type 2 diabetes mellitus Current Visit: No Status: Acute Plan: due to non compliance with insulin. I had a talk with him this morning. He may need therapy. He has a long history of non compliance. This can be frustrating to his providers. More importantly this behavior is most likely shortening his life expectancy. His sugars this morning are in the 150's Stop the insulin drip. Start him on sq insulin and start feeding him (3) Chronic suprapubic catheter Current Visit: Yes Status: Chronic Plan: Is leaking. Will consult Dr. Hong (4) Chronic pain disorder Onset Date: 05/17/17 Current Visit: No Status: Chronic Plan: restart his hydromorphine (5) Spina bifida Onset Date: 05/17/17 Current Visit: No Status: Chronic Plan: Wheelchair bound Qualifiers: Spinal region: lumbar (6) Depression Current Visit: Yes Status: Chronic Plan: Patient has been having a long history of non compliance with his medication. Discussed going to a nursing facility to improve his quality of care. He is very willing. The patient has been had a history of depression. 1 suicide attempt in the past. He is not actively suicidal. Will start him an antidepressant and look for a offal separator councillor for the patient. I need these reminders that life has been very unfair to Roland. He acts out at times due to this. Qualifiers: Depression Type: major depressive disorder Major depression recurrence: recurrent Active/Remission status: currently active Psychotic features: without psychotic features Discharge Plan: Home Plan to discharge in: 24 Hours - Code Status/Comfort Care Code Status Assessed: No Physician Review: Patient Assessed, Agree with Above Assessment and Plan Critical Care: No Time Spent Managing PTS Care (In Minutes): 20
[2022-11-26] MEDS: HYDROMORPHONE HCL 2 MG/ML inj IV PRN ×6 (00:18→22:49)
[2022-11-26] MEDS: PROMETHAZINE INJ 25 MG/ML AMP IV PRN ×3 (05:25→22:51)
[2022-11-26] MEDS: NA CHLORIDE 0.9% 1,000 ML IV SCH ×3 (05:27→14:45)
[2022-11-26] MEDS: JUVEN PACKET PO SCH ×2 (09:00→21:00)
[2022-11-26] MEDS: MUPIROCIN 2% OINT 22GM TUBE TOP SCH ×2 (09:00→21:00)
[2022-11-26] MEDS: COLLAGENASE 30 GM OINTMENT TOP SCH (09:00)
[2022-11-26] MEDS: INSULIN -REGULAR HUMAN 50 UNIT/0.5 ML ML SQ SCH ×4 (09:09→21:29)
[2022-11-26] MEDS: INSULIN GLARGINE 100 UNIT/ML SQ SCH (09:10)
[2022-11-26] MEDS: buPROPion HCL 100 MG TAB PO SCH (09:10)
[2022-11-26] MEDS: MEDIHONEY 44 ML TOPICAL TUBE TOP SCH (09:10)
--- NOTE | 2022-11-26 13:34 | P.PN ---
Subjective Date of Service: 11/26/22 Primary Care Provider: MONICO Chief Complaint: hyperglycemia Subjective: No new changes Review of Systems 10-point ROS is otherwise unremarkable Physical Examination - Vital Signs Temperature: 98.5 F Blood Pressure: 144/76 Pulse: 99 Respirations: 17 Pulse Ox (%): 97 - Physical Exam General: Alert, In no apparent distress HEENT: Atraumatic, PERRLA, EOMI Neck: Supple, JVD not distended Respiratory: Clear to auscultation bilaterally, Normal air movement Cardiovascular: Regular rate/rhythm, Normal S1 S2 Gastrointestinal: Normal bowel sounds, No tenderness Musculoskeletal: No tenderness Integumentary: No rashes Neurological: Normal speech, Normal tone, Normal affect Lymphatics: No axilla or inguinal lymphadenopathy Assessment And Plan - Current Problems (Diagnosis) (1) Pressure ulcer of unspecified site, unspecified stage Current Visit: Yes Status: Chronic Plan: Patient seen by Dr Hong and Dr. Ching. No need for scrotal debridgment. Dr Ching would like to do the sacral wound. However would like to do a colectomy. this is in the interest of letting the wound heal without chronic fecal contamination. Roland has a long history of difficulty with his hygiene in this regard 5.15 plans for colectomy tomorrow. Qualifiers: Pressure injury location: ankle Pressure injury stage: stage 2 Laterality: unspecified laterality Qualified Code(s): L89.502 - Pressure ulcer of unspecified ankle, stage 2 (2) Hyperosmolar non-ketotic state due to type 2 diabetes mellitus Current Visit: No Status: Acute Plan: due to non compliance with insulin. I had a talk with him this morning. He may need therapy. He has a long history of non compliance. This can be frustrating to his providers. More importantly this behavior is most likely shortening his life expectancy. His sugars this morning are in the 150's Stop the insulin drip. Start him on sq insulin and start feeding him (3) Chronic suprapubic catheter Current Visit: Yes Status: Chronic Plan: Is leaking. Will consult Dr. Hong (4) Chronic pain disorder Onset Date: 05/17/17 Current Visit: No Status: Chronic Plan: restart his hydromorphine (5) Spina bifida Onset Date: 05/17/17 Current Visit: No Status: Chronic Plan: Wheelchair bound Qualifiers: Spinal region: lumbar (6) Depression Current Visit: Yes Status: Chronic Plan: Patient has been having a long history of non compliance with his medication. Discussed going to a nursing facility to improve his quality of care. He is very willing. The patient has been had a history of depression. 1 suicide attempt in the past. He is not actively suicidal. Will start him an antidepressant and look for a director long term care councillor for the patient. I need these reminders that life has been very unfair to Roland. He acts out at times due to this. Qualifiers: Depression Type: major depressive disorder Major depression recurrence: recurrent Active/Remission status: currently active Psychotic features: without psychotic features Discharge Plan: Home Plan to discharge in: 24 Hours - Code Status/Comfort Care Code Status Assessed: No Physician Review: Patient Assessed, Agree with Above Assessment and Plan Critical Care: No Time Spent Managing PTS Care (In Minutes): 20
[2022-11-27] MEDS: NA CHLORIDE 0.9% 1,000 ML IV SCH ×3 (01:30→09:14)
[2022-11-27] MEDS: HYDROMORPHONE HCL 2 MG/ML inj IV PRN ×2 (04:52→09:07)
[2022-11-27] MEDS: PROMETHAZINE INJ 25 MG/ML AMP IV PRN (04:53)
[2022-11-27] MEDS: INSULIN -REGULAR HUMAN 50 UNIT/0.5 ML ML SQ SCH ×3 (07:30→16:30)
[2022-11-27] MEDS: JUVEN PACKET PO SCH ×2 (08:09→21:00)
[2022-11-27] MEDS: buPROPion HCL 100 MG TAB PO SCH (08:09)
[2022-11-27] MEDS: INSULIN GLARGINE 100 UNIT/ML SQ SCH (08:09)
[2022-11-27] MEDS: MEDIHONEY 44 ML TOPICAL TUBE TOP SCH (08:34)
[2022-11-27] MEDS: MUPIROCIN 2% OINT 22GM TUBE TOP SCH ×2 (08:34→21:00)
[2022-11-27] MEDS: COLLAGENASE 30 GM OINTMENT TOP SCH (08:34)
[2022-11-27] MEDS ORDERED: CEFTRIAXONE 1,000 MG in NA CHLORIDE 0.9% 50 ML IVPB ONE (12:30)
--- NOTE | 2022-11-27 12:35 | CON ---
Date of Consultation: 11/20/2022 Brief History Of Present Illness: The patient is a 37-year-old male, who has a complicated history o f spina bifida, diabetes, diverting urostomy, essential paralysis below the waist, who presents with noncompliance of his diabetic management with a blood sugar in 900 range. He was noted to have durin g his admission scrotal wound and some perineal wounds at this point of concern. As such, I was cons ulted for management of the patient's perineal wounds. The patient states he has minimal sensation t o this area. He does have chronic pain as well and numerous hospitalizations at the hospital at [facility] for the same said reason. Apparently, the patient is poorly compliant with respect to follow up wit sally Varela, wound care management, diabetic management, and his overall medical condition. Past Medical History: Significant for spina bifida with hydrocephalus, depression, insomnia, GERD, c hronic pain syndrome, muscle wasting, paraplegia. Past Surgical History: Includes a suprapubic catheter insertion, shunt revisions, hydrocephalus shun t, cholecystectomy, foot surgery, bilateral hip surgery, appendectomy. Home Medications: Included Dilaudid, Zestril, and insulin. Allergies: TO LEVAQUIN, MORPHINE, BACTRIM, TORADOL, PENICILLIN, VANCOMYCIN, ZOFRAN, AUGMENTIN, CIPRO , DOXYCYCLINE, SESAME SEEDS, POPCORN. Social History: He is single, has no children. Disabled. He smokes cigarettes and drinks alcohol r ecreationally. Family History: Significant for hypertension in his father and mother. Review of Systems: A 10-point review of systems other than HPI, denies. Physical Examination: Vital Signs: At the time of my examination; his BMI was 52.1, blood pressure 119/67, pulse 69, respi ratory rate 18, temperature 98.5. General: He is awake, alert, and oriented. Psychiatric: He is appropriate, conversive. General Appearance: He has super morbid obesity. HEENT: Normocephalic. His sclerae are anicteric. His mucous membranes are moist. His oropharynx i s clear. Neck: Supple without JVD. Chest: Normal expansion and excursion. Cardiovascular: Regular rate and rhythm. Pulmonary: Clear to auscultation bilaterally. Abdomen: Soft, nontender, nondistended. No rebound. No guarding. No focal peritonitis. Suprapubi c catheter is in place. Extremities: Focused examination of his extremities, he has a dorsal angulation of his lower extremi ties consistent with spina bifida history. Skin: Focused examination of the skin; he has scrotal necrosis of skin, which appears perhaps superf icial perineal wounds only have inflammation and some cellulitis in the area. No drainable collectio ns. No necrosis to his perineum. He does have swelling of his wound at this time with stool. Laboratory Data: He had a laboratory exam, which revealed a white blood cell count of 10.6, hemoglob in 7.7, hematocrit 35.8, platelet count was 554. His chemistry had a sodium of 140, potassium 3.7, c hloride 113, carbon dioxide is 26, BUN 12, creatinine 0.5, glucose is 188, it was 900 on admission. Alkaline phosphatase is 146. He had an abdomen and pelvis CT on 11/16, which was officially read as new mild right hydroureteronephrosis without evidence of obstructing calculus related to an infection , new central hypoattenuation along the small region of the soft tissue thickening involving the lowe r anterior midline abdominal wall musculatures could be related to developing small collection or abs cess, tract like soft tissue thickening extending from the sacral ulcer left the midline to the level of posterior perirectal space and posterior wall of the anal canal stable, soft tissue thickening an d edema at the level of perineum withdrawal/dressings, however, no deep subcutaneous soft fat strandi ng appreciable, fluid collection or gas noted, peritoneal portion of the BLANCHARD GRINDER OPERATOR shunt catheter is present . Assessment And Plan: This is a 37-year-old male, who comes in with chronic perineal and scrotal woun ds and paraplegia. 1.IV fluid hydration. 2.Antibiotic coverage. 3.Continue medical management. 4.Continue local wound management with Vashe and pressure reduction strategies to the area. 5.Dr. Hong' consultation appreciated, his recommendations noted. 6.I have discussed wound care with the patient including the above stated plan. Please see Dr. Emanuel coleman' notes regarding his plan for scrotal wounds. 7.I have discussed that if the patient continues to have decline of his wound, we should consider a diverting colostomy as he continues to have swelling of his wounds and this is apparently a chronic i ssue per the patient's report as well as per Dr. Varela's notes and discussion with Dr. Varela. I have discussed risks, benefits, and alternatives of diverting colostomy including, but not limited to ble eding, infection, damage to surrounding tissues, injury to internal organs, need for further operatio ns, hernias, bowel obstructions, injury to his peritoneal shunt and other potential unforeseen compli cations related to anesthesia, blood clots, heart attack, stroke, and other possible unforeseen compl ications. The patient agrees to proceed as indicated. Thank you for this interesting consult. SAMINA/DUNIA Voice ID: [id number] Report ID: [id number]
[2022-11-27] MEDS ORDERED: FENTANYL CITR 100 MCG/2 ML ONE ×4 (12:36→17:31)
[2022-11-27] MEDS ORDERED: propofoL 200 MG/20 ML VIAL IV ONE (12:36)
[2022-11-27] MEDS ORDERED: LIDOCAINE 2% MPF 5 ML VIAL ONE (12:36)
[2022-11-27] MEDS ORDERED: MIDAZOLAM HCL 2 MG/2 ML INJ ONE (12:37)
[2022-11-27] MEDS ORDERED: GLYCOPYRROLATE 0.2 MG/ML SYR ONE (12:38)
[2022-11-27] MEDS ORDERED: ROCURONIUM 50 MG/5 ML VIAL IV ONE ×2 (12:39→14:45)
[2022-11-27] MEDS ORDERED: NEOSTIGMINE 1 MG/ML -10 ML VIAL ONE (12:40)
[2022-11-27] MEDS ORDERED: ONDANSETRON 4 MG/2 ML VIAL ONE (12:44)
[2022-11-27] MEDS ORDERED: SUCCINYLCHOLINE 20 MG/ML (10 ML) IV ONE (12:51)
[2022-11-27] MEDS ORDERED: SUGAMMADEX SODIUM 200 MG/2 ML VIAL IV ONE (12:53)
[2022-11-27] MEDS ORDERED: BUPIVACAINE 0.25% PF 30 ML VIAL ONE (12:57)
--- NOTE | 2022-11-27 13:03 | P.PN ---
Subjective Date of Service: 11/27/22 Primary Care Provider: MONICO Chief Complaint: hyperglycemia Subjective: No new changes (patient in pre op awaiting a coloectomy) Review of Systems 10-point ROS is otherwise unremarkable Physical Examination - Vital Signs Temperature: 98.0 F Blood Pressure: 133/71 Pulse: 97 Respirations: 18 Pulse Ox (%): 98 - Physical Exam General: Alert, In no apparent distress HEENT: Atraumatic, PERRLA, EOMI Neck: Supple, JVD not distended Respiratory: Clear to auscultation bilaterally, Normal air movement Cardiovascular: Regular rate/rhythm, Normal S1 S2 Gastrointestinal: Normal bowel sounds, No tenderness Musculoskeletal: No tenderness Integumentary: No rashes Neurological: Normal speech, Normal tone, Normal affect Lymphatics: No axilla or inguinal lymphadenopathy Assessment And Plan - Current Problems (Diagnosis) (1) Pressure ulcer of unspecified site, unspecified stage Current Visit: Yes Status: Chronic Plan: Patient seen by Dr Hong and Dr. Ching. No need for scrotal debridgment. Dr Ching would like to do the sacral wound. However would like to do a colectomy. this is in the interest of letting the wound heal without chronic fecal contamination. Roland has a long history of difficulty with his hygiene in this regard 5.15 plans for colectomy tomorrow. Qualifiers: Pressure injury location: ankle Pressure injury stage: stage 2 Laterality: unspecified laterality Qualified Code(s): L89.502 - Pressure ulcer of unspecified ankle, stage 2 (2) Hyperosmolar non-ketotic state due to type 2 diabetes mellitus Current Visit: No Status: Acute Plan: due to non compliance with insulin. I had a talk with him this morning. He may need therapy. He has a long history of non compliance. This can be frustrating to his providers. More importantly this behavior is most likely shortening his life expectancy. His sugars this morning are in the 150's Stop the insulin drip. Start him on sq insulin and start feeding him (3) Chronic suprapubic catheter Current Visit: Yes Status: Chronic Plan: Is leaking. Will consult Dr. Hong (4) Chronic pain disorder Onset Date: 05/17/17 Current Visit: No Status: Chronic Plan: restart his hydromorphine (5) Spina bifida Onset Date: 05/17/17 Current Visit: No Status: Chronic Plan: Wheelchair bound Qualifiers: Spinal region: lumbar (6) Depression Current Visit: Yes Status: Chronic Plan: Patient has been having a long history of non compliance with his medication. Discussed going to a nursing facility to improve his quality of care. He is very willing. The patient has been had a history of depression. 1 suicide attempt in the past. He is not actively suicidal. Will start him an antidepressant and look for a marine oil terminal superintendent councillor for the patient. I need these reminders that life has been very unfair to Roland. He acts out at times due to this. Qualifiers: Depression Type: major depressive disorder Major depression recurrence: re current Active/Remission status: currently active Psychotic features: without psychotic features Discharge Plan: Home Plan to discharge in: 24 Hours - Code Status/Comfort Care Code Status Assessed: No Physician Review: Patient Assessed, Agree with Above Assessment and Plan Critical Care: No Time Spent Managing PTS Care (In Minutes): 20
[2022-11-27] MEDS ORDERED: Phenylephrine HCl 10 MG/ML 1 ML VIAL ONE (14:27)
[2022-11-27] MEDS ORDERED: EPHEDRINE SULF 50 MG/ML VIAL ONE (14:37)
[2022-11-27] MEDS ORDERED: Ringers Lactate 1,000 ML IV ONE ×3 (14:45→19:15)
[2022-11-27] MEDS ORDERED: ALBUMIN HUM 5% 250 ML IV ONE ×2 (14:45→16:37)
[2022-11-27] MEDS ORDERED: EPINEPHrine 4 MG in NA CHLORIDE 0.9% 250 ML IV SCH (15:30)
[2022-11-27] MEDS ORDERED: NOREPINEPHRINE BITARTRATE/D5W 4 MG/250 ML BAG IV ONE ×2 (15:37→19:09)
[2022-11-27] MEDS ORDERED: Phenylephrine HCl 50 MG in D5W 245 ML IV PRN (15:42)
[2022-11-27] MEDS ORDERED: HEPA 1000U/500MLS 1,000 UNIT/500 ML BAG IV ONE (15:47)
[2022-11-27] MEDS ORDERED: HEPARIN/D5W 25,000 UNIT/500 ML BAG IV SCH (16:00)
[2022-11-27] MEDS ORDERED: NA CHLORIDE 0.9% 500 ML ONE (16:08)
--- NOTE | 2022-11-27 16:27 | RAD REPORT ---
EXAM DESCRIPTION: RAD - Chest Single View - 11/27/2022 4:22 pm CLINICAL HISTORY: code Chest pain. COMPARISON: <Comparisons> FINDINGS: Tip of the endotracheal tube is at the level of the aortic arch. Enteric tube with its tip in the stomach.
--- NOTE | 2022-11-27 16:42 | P.OP ---
Preoperative diagnosis: Fecal Incontenence / Perineal Wound Soilage Postoperative diagnosis: Fecal Incontenence / Perineal Wound Soilage Primary procedure: Exploratory Laparotomy converted to exploratory laparotomy Secondary procedure: Lysis of adhesions Other procedure(s): Placement of LEFT femoral Central venous catheter Anesthesia: GETA + Local Estimated blood loss: ~ 20cc Specimen: none Findings: Dense Abdominal Adhesions Complications: Other (Patient became hemodynamically unstable precluding completion of surgery) Transferred to: ICU Condition: Critical
[2022-11-27] MEDS ORDERED: HYDROCORTISONE SUC 100 MG INJ IV ONE (17:20)
[2022-11-27] MEDS ORDERED: INSULIN -REGULAR HUMAN 50 UNIT/0.5 ML ML SQ SCH (17:58)
[2022-11-27] MEDS: ALBUMIN HUMAN 25% 200 ML IV ONE ×2 (17:58→18:38)
[2022-11-27] MEDS ORDERED: VANCOMYCIN 1 GM in NA CHLORIDE 0.9% 250 ML IVPB SCH (18:00)
[2022-11-27 18:03] LABS: Absolute Lymphocytes (CBC) 3.5 K/uL (0.7-4.9); Hematocrit 39.7 % (39.6-49.0); Lymphocytes % 13.8 % (15.3-44.8); MCV 92.7 fL (80-100); MPV 7.6 fL (7.6-11.3); RBC Red Blood Cell Count 4.28 M/uL (4.33-5.43)
[2022-11-27 18:10] LABS: Arterial Blood Carboxyhemoglob 0.9 % (0-1.5); Blood Gas Oxyhemoglobin 94.7 % (94-97)
[2022-11-27] MEDS: Meropenem 1,000 MG in NA CHLORIDE 0.9% 100 ML IV SCH (18:15)
[2022-11-27 18:19] LABS: Protime INR 1.13
[2022-11-27 18:28] LABS: Albumin 2.2 g/dL (3.4-5.0); Magnesium 1.5 mg/dL (1.6-2.4); Phosphorus 5.5 mg/dL (2.5-4.9); Potassium 3.8 mEq/L (3.5-5.1); Protein, Total 6.3 g/dL (6.4-8.2)
[2022-11-27 18:34] LABS: Troponin High Sensitivity 228.8 pg/mL (<58.9)
[2022-11-27] MEDS: INSULIN -REGULAR HUMAN 100 UNIT in NA CHLORIDE 0.9% 100 ML IV SCH (18:56)
[2022-11-27] MEDS ORDERED: NOREPINEPHRINE 16 MG in D5W 250 ML IV SCH (19:00)
[2022-11-27] MEDS ORDERED: Magnesium Sulfate 2gm IVPB 2 G/50 ML BAG IV ONE (19:05)
--- NOTE | 2022-11-27 19:41 | RAD REPORT ---
EXAM DESCRIPTION: US - Extrem Venous W Compress Sharath - 11/27/2022 7:27 pm CLINICAL HISTORY: dvt Bilateral leg edema and swelling. COMPARISON: EXT VENOUS W COMPRESSION SHARATH dated 05/01/2012 TECHNIQUE: Real-time sonographic interrogation of the left and right lower extremity deep venous sys tems was performed. FINDINGS: Exam is technically very limited. Within this limitation, no gross DVT seen. IMPRESSION: Technically limited study without gross evidence of DVT.
[2022-11-27] MEDS: NOREPINEPHRINE 4 MG in D5W 250 ML IV SCH (20:30)
--- NOTE | 2022-11-27 21:09 | P.PN ---
Subjective Date of Service: 11/27/22 Primary Care Provider: MONICO Chief Complaint: hyperglycemia Patient remains intubated and minimally responsive intermittently Physical Examination - Vital Signs Temperature: 97.2 F Blood Pressure: 96/65 Pulse: 152 Respirations: 26 Pulse Ox (%): 96 - Physical Exam General: Mild distress HEENT: Mucous membr. moist/pink, Sclerae nonicteric Neck: Supple Respiratory: Clear to auscultation bilaterally, Normal air movement Cardiovascular: Other (tachycardia) Gastrointestinal: Other (wound dressings in place) Musculoskeletal: Swelling Integumentary: Skin breakdown (perirectal wounds are stable, no necrosis, + cellulitis) Urinary: Presley catheter, Suprapubic catheter External genitalia: Other (wounds stable on scrotum) Rectal: Induration - Studies Medications List Reviewed: Yes Assessment And Plan - Current Problems (Diagnosis) (1) S/P exploratory laparotomy Current Visit: Yes Status: Acute Plan: Patient is a 37 year old man s/p Exploratory Laparotomy, Adhesiolysis with primary closure on 11-27-2022 Gen/ Neuro: No pain medication Rx currently given due to hemodynamic instability CVS: sinus tachycardia, hypotensive on levophed and phenylepherine ggt. Albumin and fluid bolus given, troponins elevated, will trend, Dr. Montano Consulted Pulm: ventilator dependent, oxygenating well, had some intermittent episodes of decreased end tidal CO2 to 20s, but brief episodes only, continue vent management, wean PRN, recommend CT PE protocol to rule out pulmonary emboli, ultrasound of bilateral lower extremities are limited but no obvious DVT noted, Dr. Grigsby consulted GI: serial exams FEN: fluid boluses with LR to continue PRN, Electrolyte replacement protocol for Mg, Phos, K, nutrition- will hold on nutrition for now while unstable, continue IV fluid warmer, hot air blanket ([employer]ger) Endo: hyperglycemia - insulin GGT, will wean to protocol when responsive, cortisol level normal, hold steroid usage for now, Renal: monitor urine output via both suprapubic and presley catheters, creatinine normal post op ID: Merropenem, patient was given 1 dose of Rocephin preoperatively Prophylaxis: Lovenox, will consider PPI if not able to wean off vent Tubes / Lines: PICC line, LEFT femoral central line, RIGHT arterial line, suprapubic catheter, presley catheter, NG tube, ET tube, rectal temp probe Heme: Hbg stable on post op check and via ABG PT/OT - wait for now, Placement: will address after hemodynamically improved Wound: continue wound protection with santyl, Vashe, daily, cover with occlusive dressings away from fecal stream as much as possible, consider rectal tube Physician Review: Patient Assessed, Agree with Above Assessment and Plan
[2022-11-27] MEDS: HYDROMORPHONE HCL 1 MG/ML INJ IV PRN (22:31)
[2022-11-27] MEDS: DEXMEDETOMIDINE HCL 200 MCG in NA CHLORIDE 0.9% 98 ML IV SCH (23:30)
[2022-11-28] MEDS: Meropenem 1,000 MG in NA CHLORIDE 0.9% 100 ML IV SCH ×3 (00:08→16:09)
[2022-11-28] MEDS: NA CHLORIDE 0.9% 1,000 ML IV SCH ×3 (00:08→17:45)
[2022-11-28] MEDS ORDERED: INSULIN -REGULAR HUMAN 50 UNIT/0.5 ML ML ONE (00:46)
[2022-11-28] MEDS ORDERED: NA CHLORIDE 0.9% 100 ML ONE ×2 (00:47→06:08)
--- NOTE | 2022-11-28 00:48 | OP ---
Date of Procedure: 11/27/2022 Surgeon: Anjel Ching MD, Indications: The patient is a 37-year-old male who has a history of cerebral palsy, who presented to the hospital with multiple medical problems including severe hyperglycemia with a blood sugar over 9 00, who ultimately had presented with wounds of his perineum and scrotal areas with significant injur y to these areas. He was seen initially by myself in consultation for discussion of management of hi s chronic perineal wounds and Dr. Hong of Urology saw him for his scrotal wounds. As such, we opt ed for nonoperative management at that time for his current wound situation; however, he did have natalio e improvement of his wounds during his hospitalization, but continued to soil his wounds with stool a nd would often have large amounts of stool contaminating the various areas. I had initially discusse d colostomy with diversion of stool, for a temporary diverting colostomy to help divert the fecal str eam as continued contamination seemed to make the wounds significantly worse. They continued to wors en over the course of his hospitalization and we tried medical management initially. Ultimately, the patient opted for surgical management with colonic diversion. Preoperative Diagnosis: Fecal incontinence/perineal wound soilage. Postoperative Diagnosis: Fecal incontinence/perineal wound soilage. Procedures Performed: 1.Exploratory laparoscopy converted to exploratory laparotomy. 2.Lysis of adhesions. 3.Placement of a left femoral venous catheter. Anesthesia: General endotracheal plus local with 0.25% Marcaine without epinephrine. Estimated Blood Loss: 20 cc. Specimen: None. Findings: The patient had dense abdominal adhesions and a large pendulous omentum with significant a dhesions as well. Complications: The patient became hemodynamically unstable during the procedure, precluding a safe c ompletion of the procedure. The patient transferred to ICU in critical condition. Procedure In Detail: After informed consent was obtained, whereby I discussed the risks, benefits, a nd alternatives of the above procedure including but not limited to bleeding, infection, damage to in ternal organs, need for further operation procedures, blood clot, stroke, heart attacks, other unfore seen complications related to anesthesia, and other unforeseen complications in the perioperative per iod. The patient was prepped and draped in the usual sterile fashion. After adequate anesthesia was achieved, I initially placed an injection of 0.25% Marcaine in the supraumbilical position. I anest hetized the skin and introduced a 5 mm 0-degree optical trocar into the abdomen without evidence of c omplication. Insufflation was obtained to 15 mmHg at this time. There was no injury to vital struct ures upon entry into the abdomen. I inspected the area and found there to be significant scar preclu ding an expeditious takedown using laparoscopic approach and as such, at this point, I opted to open the patient for a proper exploratory laparotomy. The patient did have some adhesions to the midline, but the majority of them were not in an area that precluded safe entry into the abdominal compartmen t as a safe zone was identified by diagnostic laparoscopy. At this point, I left the pneumoperitoneu m in place, removed the trocar, and converted the procedure to exploratory laparotomy at this point. I used a 10 blade down to subcutaneous tissues and dissected down through fat planes using electroca utery to expose the abdominal midline fascia at the linea alba. This was opened sharply at this poin t, and ultimately the peritoneum was grasped, elevated, and entered sharply with Metzenbaum scissors. The abdomen was entered safely at this point without any injury to any vital structures. I then op ened the abdomen through the upper midline incision and just to below the infraumbilical position. A fter this was performed, I performed an extensive adhesiolysis removing predominantly colon from the anterior abdominal wall as well as small bowel from the abdominal wall and omental attachments. The omentum was quite thickened and had a significant adipose burden to it. I was able to mobilize the t ransverse colon and I continued to track laterally to mobilize the transverse colon at this point and near the splenic flexure. Blood loss was minimal throughout the procedure. There were no specific significant hemodynamic maneuvers required other than simple electrocautery. There were no bowel inj uries were appreciated throughout. A peritoneal shunt was then visualized and left in its anatomic p osition, which was somewhat curled extending down into the pelvis. This was protected throughout. A t this point, after mobilizing the colon, I opted for a mesenteric window near the distal transverse colon near the flexure as this was a nice and mobilized segment of the colon at this point. I then g rasped the skin on the surface after previously being marked in the preoperative area for an appropri ate location for his colostomy. I then removed the skin ellipse at this point using a 10 blade. I d issected down, removing some adipose tissue and exposed the abdominal wall over the rectus muscle at this point. I then made a cruciate incision over the anterior rectus sheath and spread the fibers of the rectus muscle laterally sparing them throughout. I then placed my hand in the peritoneal cavity and protected the entry point for the colostomy at this point. I opened the peritoneal lining at th is point with a cruciate incision through the peritoneum in the posterior fascia without incident. I passed 2 fingers to the area and ultimately prepared to perform the colostomy at this point. After this was completed, I inspected the abdomen and there was no additional bleeding and the colon was ni jackie mobilized. At this point, my Anesthesia personnel notified me that the patient began to have so me hemodynamic instability with alternating tachycardia up into the 160s and bradycardia down to the 40s and 30s. Additionally, the patient's blood pressure varied widely, extending down to over 60/30 and ultimately the Anesthesia Team had difficulty in obtaining blood pressures. At this point, I opt ed to abandon the procedure as the patient became hemodynamically unstable and at this point, I opted to close the patient's abdomen in an expeditious fashion. Therefore, I cleansed the area of the abd ominal compartment quickly, suctioned out whatever effluent there was, and put the abdominal FISH in place to protect the intraabdominal contents. I closed the colostomy site using a running #1 PDS sut ure with good approximation of the fascia throughout. At this point, I then turned my attention to t he main midline laparotomy and closed the midline laparotomy with the abdominal FISH protecting and c losed the patient's midline laparotomy incision with a #1 looped PDS with good approximation of the t issues at this point. We then copiously irrigated the deep adipose tissues on both the colostomy sit e as well as the midline laparotomy and then the skin was closed in both locations with interrupted s taples and a sterile dressing placed over top. The patient tolerated the procedure as described abov e with hemodynamic instability and as such, the procedure was abandoned. The patient had minimal blo od loss throughout the procedure of less than 20 cc throughout. The patient was transferred to the P ACU in serious/critical condition. The patient was started on pressor support in the operating room. All counts were correct at the end of the case and were counted multiple times to ensure that all c ounts were correct, which was verified on 3 separate occasions. The patient will be transferred to [facility] ICU for ongoing care and workup for the etiology of his hemodynamic instability. TK/MODL Voice ID: [id number] Report ID: [id number]
[2022-11-28] MEDS: INSULIN -REGULAR HUMAN 100 UNIT in NA CHLORIDE 0.9% 100 ML IV SCH (01:35)
[2022-11-28] MEDS: NOREPINEPHRINE 4 MG in D5W 250 ML IV SCH (01:54)
[2022-11-28] MEDS: HYDROMORPHONE HCL 1 MG/ML INJ IV PRN ×4 (02:40→18:20)
[2022-11-28] MEDS: DEXMEDETOMIDINE HCL 200 MCG in NA CHLORIDE 0.9% 98 ML IV SCH ×3 (03:11→08:36)
[2022-11-28 05:29] LABS: Absolute Lymphocytes (CBC) 2.8 K/uL (0.7-4.9); Hematocrit 23.9 % (39.6-49.0); Lymphocytes % 7.3 % (15.3-44.8); MCV 91.7 fL (80-100); MPV 7.1 fL (7.6-11.3)
[2022-11-28 05:45] LABS: Albumin 2.6 g/dL (3.4-5.0); Bilirubin Total 1.1 mg/dL (0.2-1.0); Magnesium 1.9 mg/dL (1.6-2.4); Potassium 3.9 mEq/L (3.5-5.1)
[2022-11-28 05:46] LABS: Troponin High Sensitivity 558.4 pg/mL (<58.9)
[2022-11-28 05:46] LABS: Arterial Blood Carboxyhemoglob 1.3 % (0-1.5); Blood Gas Oxyhemoglobin 96.5 % (94-97); Blood O2 Saturation 99.4 % (92-98.5)
[2022-11-28] MEDS ORDERED: DEXMEDETOMIDINE HCL 200 MCG/2 ML VIAL ONE (06:03)
[2022-11-28 06:46] LABS: Blood Morphology Comment NOT SEEN (NOT SEEN); Platelet Estimate INCR; Platelets, Giant NOTED; Polychromasia 1+
[2022-11-28] MEDS ORDERED: GLUCAGON 1 MG/VIAL IM PRN (07:53)
[2022-11-28] MEDS ORDERED: D50W 25 GM/50 ML SYRINGE IV PRN (07:53)
--- NOTE | 2022-11-28 07:57 | P.PN ---
Subjective Date of Service: 11/28/22 Primary Care Provider: MONICO Chief Complaint: hyperglycemia Subjective: New changes (patient on a vent with pressors on board) Review of Systems is unable to be obtained Physical Examination - Vital Signs Temperature: 99.8 F Blood Pressure: 98/54 Pulse: 117 Respirations: 26 Pulse Ox (%): 100 - Physical Exam General: Alert, Moderate distress HEENT: Atraumatic, PERRLA, EOMI Neck: Supple, JVD not distended Respiratory: Clear to auscultation bilaterally, Normal air movement Cardiovascular: Regular rate/rhythm, Normal S1 S2 Gastrointestinal: Normal bowel sounds, No tenderness Musculoskeletal: No tenderness Integumentary: No rashes Neurological: Normal speech, Normal tone, Normal affect Lymphatics: No axilla or inguinal lymphadenopathy - Studies Medications List Reviewed: Yes Assessment And Plan - Current Problems (Diagnosis) (1) Shock circulatory Current Visit: Yes Status: Acute Plan: surgery not completed. Vented, on pressors. Will work on getting his blood pressure stablized and the getting him off the vent (2) Pressure ulcer of unspecified site, unspecified stage Current Visit: Yes Status: Chronic Plan: Patient seen by Dr Hong and Dr. Ching. No need for scrotal debridgment. Dr Ching would like to do the sacral wound. However would like to do a colectomy. this is in the interest of letting the wound heal without chronic fecal contamination. Roland has a long history of difficulty with his hygiene in this regard 5.15 plans for colectomy tomorrow. Qualifiers: Pressure injury location: ankle Pressure injury stage: stage 2 Laterality: unspecified laterality Qualified Code(s): L89.502 - Pressure ulcer of unspecified ankle, stage 2 (3) Hyperosmolar non-ketotic state due to type 2 diabetes mellitus Current Visit: No Status: Acute Plan: due to non compliance with insulin. I had a talk with him this morning. He may need therapy. He has a long history of non compliance. This can be frustrating to his providers. More importantly this behavior is most likely shortening his life expectancy. His sugars this morning are in the 150's Stop the insulin drip. Start him on sq insulin and start feeding him (4) Chronic suprapubic catheter Current Visit: Yes Status: Chronic Plan: Is leaking. Will consult Dr. Hong (5) Chronic pain disorder Onset Date: 05/17/17 Current Visit: No Status: Chronic Plan: restart his hydromorphine (6) Spina bifida Onset Date: 05/17/17 Current Visit: No Status: Chronic Plan: Wheelchair bound Qualifiers: Spinal region: lumbar (7) Depression Current Visit: Yes Status: Chronic Plan: Patient has been having a long history of non compliance with his medication. Discussed going to a nursing facility to improve his quality of care. He is very willing. The patient has been had a history of depression. 1 suicide attempt in the past. He is not actively suicidal. Will start him an antidepressant and look for a intermediate card tender councillor for the patient. I need these reminders that life has been very unfair to Roland. He acts out at times due to this. Qualifiers: Depression Type: major depressive disorder Major depression recurrence: recurrent Active/Remission status: currently active Psychotic features: without psychotic features Discharge Plan: Home Plan to discharge in: Greater than 2 days - Code Status/Comfort Care Code Status Assessed: No Physician Review: Patient Assessed, Agree with Above Assessment and Plan Critical Care: Yes Time Spent Managing PTS Care (In Minutes): 20
--- NOTE | 2022-11-28 08:11 | P.CNS ---
Date of Consult: 11/28/22 Primary Care Provider: MONICO Chief Complaint: Shock, respiratory failure History of Present Illness: Patient is 37 years of age with history of spina bifida apparently developed hemodynamic collapse perioperative will obtain to shock respiratory failure was intubated started on vasopressors transferred to the ICU he was started on 2 vasopressors including IV fluids currently on a ventilator dexmedetomidine drip oliguric Allergies levofloxacin [From Levaquin] Allergy (Intermediate, Verified 08/07/22 22:50) Hives morphine Allergy (Intermediate, Verified 08/07/22 22:50) Hives sulfamethoxazole [From Bactrim] Allergy (Intermediate, Verified 08/07/22 22:50) Hives ketorolac tromethamine [From Toradol] Allergy (Verified 08/07/22 22:50) Nausea/Vomiting Penicillins Allergy (Verified 08/07/22 22:50) Hives/Rash vancomycin Allergy (Verified 08/07/22 22:50) Hives ondansetron [From Zofran (as hydrochloride)] Adverse Reaction (Mild, Verified 08/07/22 22:50) Nausea/Vomiting amoxicillin [From Augmentin] Adverse Reaction (Verified 08/07/22 22:50) Hives/Rash ciprofloxacin Adverse Reaction (Verified 08/07/22 22:50) Nausea/Vomiting doxycycline Adverse Reaction (Verified 08/07/22 22:50) Nausea/Vomiting sesame seed Adverse Reaction (Verified 08/07/22 22:50) diarrhea pop corn Adverse Reaction (Severe, Uncoded 08/07/22 22:50) diarrhea Home Medications: Hydromorphone [Dilaudid] 4 mg PO Q8HP PRN 09/25/21 Lisinopril [Zestril] 2.5 mg PO DAILY 08/07/22 Insulin Glargine,Hum.rec.anlog [Semglee] 45 unit SQ DAILY 08/13/22 - Past Medical/Surgical History Diabetic: Yes -: Spina Bifida with hydrocephalus -: Depression -: Insomnia -: suprapubic catheter -: GERD -: Chronic pain syndrome -: Muscle wasting -: Paraplegia -: Shunt revision -: Cholecystectomy -: Foot surgery -: Hip sx BL -: Bilateral hip surgery -: Appendectomy Psychosocial/ Personal History: Patient currently single. He has no children. He is disabled. - Family History Father Medical History: Hypertension Mother Medical History: Hypertension - Social History Smoking Status: Unknown if ever smoked Alcohol use: Yes CD- Drugs: No Caffeine use: No Place of Residence: Home Review of Systems is unable to be obtained Physical Examination Temp Pulse Resp BP Pulse Ox 99.8 F 117 H 26 H 98/54 L 100 11/28/22 07:56 11/28/22 07:56 11/28/22 07:56 11/28/22 07:56 11/28/22 07:56 General: Unresponsive - Problems (1) Shock Current Visit: Yes Status: Acute Plan: Patient is 37 years of age admitted with perioperative shock respiratory failure is currently more stable we will try to wean off his vasopressors oxygenation is also improved chest x-ray shows some atelectasis doubt pulmonary embolism echocardiogram is pending patient was given 1 dose of hydrocortisone yesterday I suspect that is why his white count is elevated sepsis is always a possibility patient was started on meropenem he is allergic to vancomycin we will try him on daptomycin until cultures come back probably delusional anemia we will repeat his hemoglobin around noon Labs reviewed renal function is mildly abnormal I suspect is due to the vasopressors continue to monitor EKG no acute changes no evidence of pulmonary edema transfuse 1 unit of packed red blood cells surgical anemia hemoglobin less than 8 continue with IV fluids until weaned off the vasopressors
--- NOTE | 2022-11-28 08:11 | P.PN ---
Subjective Date of Service: 11/28/22 Primary Care Provider: MONICO Chief Complaint: hyperglycemia Patient remains intubated and minimally responsive intermittently, now on precedex as he awoke overnight Physical Examination - Vital Signs Temperature: 99.8 F Blood Pressure: 98/54 Pulse: 117 Respirations: 26 Pulse Ox (%): 100 - Physical Exam General: Other (intubated, sedated on ventilator with precedex, but responds appropriately to questions with non-verbal responses) HEENT: Mucous membr. moist/pink Neck: Supple Respiratory: Clear to auscultation bilaterally, Normal air movement (Ventilated AC mode, clear bilaterally) Cardiovascular: Other (tachycardia but improved from last evening) Gastrointestinal: Soft and benign, Non-distended, No ascites, No tenderness, No masses, No rebound, No guarding, Other (incision clean and dry, iftikhar in place, blood on dressings) Musculoskeletal: Swelling Integumentary: Other (perineal wounds stable, + breakdown, wounds not currently soiled) Rectal: Other (stable wound in perineal region - no drainable collections) - Studies Medications List Reviewed: Yes Assessment And Plan - Current Problems (Diagnosis) (1) S/P exploratory laparotomy Current Visit: Yes Status: Acute Plan: Patient is a 37 year old man s/p Exploratory Laparotomy, Adhesiolysis with primary closure on 11-27-2022 Gen/ Neuro: No pain medication Rx currently given due to hemodynamic instability, has become responsive, asking for pain medication, has been given dilaudid PRN CVS: sinus tachycardia, hypotensive on levophed and phenylepherine ggt. Albumin and fluid bolus given, troponins elevated, will trend, Dr. Montano Consulted, improved tachycardia from last evening. Pulm: ventilator dependent, oxygenating well, continue vent management, wean PRN, recommend CT PE protocol to rule out pulmonary emboli, ultrasound of bilateral lower extremities are limited but no obvious DVT noted, Dr. Grigsby consulted, chest x ray - mild atelectasis, daily chest x ray. GI: serial exams, blood tinged dressings. FEN: fluid boluses with LR to continue PRN, Electrolyte replacement protocol for Mg, Phos, K, nutrition- will hold on nutrition for now while unstable, continue IV fluid warmer, hot air blanket (BareHugger) Endo: hyperglycemia - insulin GGT, will wean to protocol when responsive, corti zee level normal, hold steroid usage for now, Renal: monitor urine output via both suprapubic and presley catheters, creatinine elevated - oliguira ID: Merropenem, patient was given 1 dose of Rocephin preoperatively, started daptomycin Prophylaxis: Lovenox, will consider PPI if not able to wean off vent Tubes / Lines: PICC line, LEFT femoral central line, RIGHT arterial line, suprapubic catheter, presley catheter, NG tube, ET tube, rectal temp probe Heme: Hbg dropped today, likely mostly dilutional as he is > 4 liters positive after surgery in addition recieved albumin x 3 runs, will send DIC panel PT/OT - wait for now, Placement: will address after hemodynamically improved Wound: continue wound protection with santyl, Vashe, daily, cover with occlusive dressings away from fecal stream as much as possible, consider rectal tube Physician Review: Patient Assessed, Agree with Above Assessment and Plan
--- NOTE | 2022-11-28 08:21 | RAD REPORT ---
EXAM DESCRIPTION: RAD - Chest Single View - 11/28/2022 7:23 am CLINICAL HISTORY: vent/intubated Chest pain. COMPARISON: Chest Single View dated 11/27/2022; Chest Single View dated 11/20/2022; Chest Single View d ated 11/14/2022; Chest Single View dated 08/06/2022 FINDINGS: Portable technique limits examination quality. Right-sided PICC line has tip in the SVC. Endotracheal tube tip is at the level of the aortic arch. E nteric tube descends in the stomach. Bilateral pulmonary opacities are noted likely atelectasis, over all lungs are underinflated.
[2022-11-28] MEDS: JUVEN PACKET PO SCH ×2 (09:00→19:39)
[2022-11-28] MEDS: MUPIROCIN 2% OINT 22GM TUBE TOP SCH ×2 (09:00→21:07)
[2022-11-28] MEDS ORDERED: ENOXAPARIN 40 MG/0.4 ML SQ SCH (09:00)
[2022-11-28] MEDS: MEDIHONEY 44 ML TOPICAL TUBE TOP SCH (09:00)
[2022-11-28 09:02] LABS: Protime INR 1.3
[2022-11-28] MEDS: COLLAGENASE 30 GM OINTMENT TOP SCH (09:14)
[2022-11-28] MEDS: INSULIN GLARGINE 100 UNIT/ML SQ SCH (09:14)
[2022-11-28] MEDS: NOREPINEPHRINE BITARTRATE/D5W 4 MG/250 ML BAG IV SCH ×2 (09:17→16:04)
[2022-11-28] MEDS ORDERED: NA CHLORIDE 0.9% 250 ML ONE (10:46)
[2022-11-28] MEDS: DAPTOmycin 600 MG in NA CHLORIDE 0.9% 100 ML IVPB SCH (10:59)
[2022-11-28] MEDS ORDERED: DEXMEDETOMIDINE HCL 1,000 MCG in NA CHLORIDE 0.9% 490 ML IV SCH (11:00)
[2022-11-28] MEDS: HYDROMORPHONE HCL 2 MG/ML inj IV PRN (11:17)
[2022-11-28] MEDS ORDERED: INSULIN -REGULAR HUMAN 50 UNIT/0.5 ML ML SQ SCH (11:30)
[2022-11-28] MEDS ORDERED: ATROPINE SULF 1 MG/10 ML SYR IV ONE (11:31)
[2022-11-28] MEDS: INSULIN -REGULAR HUMAN 50 UNIT/0.5 ML ML SQ SCH ×3 (11:55→21:08)
--- NOTE | 2022-11-28 13:53 | ECHO ---
HEIGHT: 4 ft 11 in WEIGHT: 257 lb 15.053 oz DATE OF STUDY: 11/28/[address]: Anjel Ching MD 2-DIMENSIONAL: YES M.MODE: YES DOPPLER: YES COLOR FLOW: YES TDS: NO PORTABLE: YES DEFINITY: NO BUBBLE STUDY: NO DIAGNOSIS: TACHYCARDIA CARDIAC HISTORY: CATHERIZATION: SURGERY: PROSTHETIC VALVE: PACEMAKER: MEASUREMENTS (cm) DIASTOLIC (NORMALS) SYSTOLIC (NORMALS) IVSd 1.0 (0.6-1.2) LA Diam 3.4 (1.9-4.0) LVEF 85% LVIDd 3.2 (3.5-5.7) LVIDs 1.5 (2.0-3.5) %FS 53% LVPWd 1.0 (0.6-1.2) Ao Diam 2.8 (2.0-3.7) 2 DIMENSIONAL ASSESSMENT: RIGHT ATRIUM: NORMAL LEFT ATRIUM: NORMAL RIGHT VENTRICLE: NORMAL LEFT VENTRICLE: NORMAL TRICUSPID VALVE: NORMAL MITRAL VALVE: NORMAL PULMONIC VALVE: NORMAL AORTIC VALVE: NORMAL PERICARDIAL EFFUSION: NONE AORTIC ROOT: NORMAL LEFT VENTRICULAR WALL MOTION: NORMAL. DOPPLER/COLOR FLOW: MILD TRICUSPID REGURGITATION. COMMENTS: MILD TRICUSPID REGURGITATION NORMAL LEFT VENTRICULAR SIZE AND FUNCTION NO EFFUSION TECHNOLOGIST: GEORGINA BELL
[2022-11-28] MEDS: DEXMEDETOMIDINE HCL 1,000 MCG in NA CHLORIDE 0.9% 490 ML IV SCH ×2 (14:16→19:30)
[2022-11-28 15:37] LABS: Hematocrit 24.2 % (39.6-49.0)
[2022-11-28] MEDS: ENOXAPARIN 40 MG/0.4 ML SQ SCH (19:38)
[2022-11-28] MEDS ORDERED: NA CHLORIDE 0.9% 1,000 ML IV SCH ×2 (19:48→21:00)
[2022-11-28 20:27] LABS: Hematocrit 22.3 % (39.6-49.0)
[2022-11-28] MEDS ORDERED: NA CHLORIDE 0.9% 250 ML IV SCH (21:00)
[2022-11-28 21:13] LABS: Urine Bacteria 20-50 /HPF (<20); Urine Bilirubin NEGATIVE (Negative); Urine Blood 2+ (Negative); Urine Clarity Extremely Turbid (Clear); Urine Color Light-Orange (Yellow); Urine Glucose NEGATIVE (Negative); Urine Mucus 4+ /HPF (None Seen); Urine Protein TRACE (Negative); Urine RBC >50 /HPF (None Seen); Urine Urobilinogen Normal (Normal); Urine WBC Clump Many /HPF (None Seen)
[2022-11-29] MEDS: DEXMEDETOMIDINE HCL 1,000 MCG in NA CHLORIDE 0.9% 490 ML IV SCH ×2 (01:19→07:44)
[2022-11-29] MEDS: Meropenem 1,000 MG in NA CHLORIDE 0.9% 100 ML IV SCH ×3 (01:19→16:08)
[2022-11-29] MEDS: NOREPINEPHRINE BITARTRATE/D5W 4 MG/250 ML BAG IV SCH (01:19)
[2022-11-29] MEDS: HYDROMORPHONE HCL 2 MG/ML inj IV PRN ×3 (01:30→10:52)
[2022-11-29 05:27] LABS: Absolute Lymphocytes (CBC) 1.9 K/uL (0.7-4.9); Hematocrit 24.2 % (39.6-49.0); Lymphocytes % 12.5 % (15.3-44.8); MCV 89.5 fL (80-100); MPV 7.1 fL (7.6-11.3); RBC Red Blood Cell Count 2.71 M/uL (4.33-5.43)
[2022-11-29 05:41] LABS: Magnesium 1.9 mg/dL (1.6-2.4); Phosphorus 3.3 mg/dL (2.5-4.9); Potassium 4.6 mEq/L (3.5-5.1)
--- NOTE | 2022-11-29 07:25 | RAD REPORT ---
EXAM DESCRIPTION: [facility] Single View11/29/2022 4:44 am CLINICAL HISTORY: Ventilation/intubation COMPARISON: November 28, 2022 FINDINGS: Lines and tubes in good position. Mild bibasilar atelectasis minimally improved Heart is normal size
[2022-11-29] MEDS: INSULIN GLARGINE 100 UNIT/ML SQ SCH (07:47)
[2022-11-29] MEDS: INSULIN -REGULAR HUMAN 50 UNIT/0.5 ML ML SQ SCH ×4 (07:47→20:58)
[2022-11-29] MEDS: MEDIHONEY 44 ML TOPICAL TUBE TOP SCH (07:48)
[2022-11-29] MEDS: COLLAGENASE 30 GM OINTMENT TOP SCH (07:48)
[2022-11-29] MEDS: MUPIROCIN 2% OINT 22GM TUBE TOP SCH ×2 (07:49→20:56)
[2022-11-29] MEDS: JUVEN PACKET PO SCH ×2 (07:49→20:29)
--- NOTE | 2022-11-29 08:42 | P.PN ---
Subjective Date of Service: 11/29/22 Primary Care Provider: MONICO Chief Complaint: hyperglycemia Subjective: Improving (weaning down off pressors and sedation) Review of Systems is unable to be obtained Physical Examination - Vital Signs Temperature: 97.8 F Blood Pressure: 127/74 Pulse: 85 Respirations: 20 Pulse Ox (%): 99 - Physical Exam General: Alert, In no apparent distress HEENT: Atraumatic, PERRLA, EOMI Neck: Supple, JVD not distended Respiratory: Clear to auscultation bilaterally, Normal air movement Cardiovascular: Regular rate/rhythm, Normal S1 S2 Gastrointestinal: Normal bowel sounds, No tenderness Musculoskeletal: No tenderness Integumentary: No rashes Neurological: Normal speech, Normal tone, Normal affect Lymphatics: No axilla or inguinal lymphadenopathy - Studies Medications List Reviewed: Yes Assessment And Plan - Current Problems (Diagnosis) (1) Shock circulatory Current Visit: Yes Status: Acute Plan: surgery not completed. Vented, on pressors. Will work on getting his blood pressure stablized and the getting him off the vent (2) Pressure ulcer of unspecified site, unspecified stage Current Visit: Yes Status: Chronic Plan: Patient seen by Dr Hong and Dr. Ching. No need for scrotal debridgment. Dr Ching would like to do the sacral wound. However would like to do a colectomy. this is in the interest of letting the wound heal without chronic fecal contamination. Roland has a long history of difficulty with his hygiene in this regard 5.15 plans for colectomy tomorrow. Qualifiers: Pressure injury location: ankle Pressure injury stage: stage 2 Laterality: unspecified laterality Qualified Code(s): L89.502 - Pressure ulcer of unspecified ankle, stage 2 (3) Hyperosmolar non-ketotic state due to type 2 diabetes mellitus Current Visit: No Status: Acute Plan: due to non compliance with insulin. I had a talk with him this morning. He may need therapy. He has a long history of non compliance. This can be frustrating to his providers. More importantly this behavior is most likely shortening his life expectancy. His sugars this morning are in the 150's Stop the insulin drip. Start him on sq insulin and start feeding him (4) Chronic suprapubic catheter Current Visit: Yes Status: Chronic Plan: Is leaking. Will consult Dr. Hong (5) Chronic pain disorder Onset Date: 05/17/17 Current Visit: No Status: Chronic Plan: restart his hydromorphine (6) Spina bifida Onset Date: 05/17/17 Current Visit: No Status: Chronic Plan: Wheelchair bound Qualifiers: Spinal region: lumbar (7) Depression Current Visit: Yes Status: Chronic Plan: Patient has been having a long history of non compliance with his medication. Discussed going to a nursing facility to improve his quality of care. He is very willing. The patient has been had a history of depression. 1 suicide attempt in the past. He is not actively suicidal. Will start him an antidepressant and look for a retirement councillor for the patient. I need these reminders that life has been very unfair to Roland. He acts out at times due to this. Qualifiers: Depression Type: major depressive disorder Major depression recurrence: recurrent Active/Remission status: currently active Psychotic features: without psychotic features (8) Anemia Current Visit: Yes Status: Acute Plan: will transfuse 2 more units of blood check for occult blood from a GI source. Qualifiers: Anemia type: unspecified type Qualified Code(s): D64.9 - Anemia, unspecified Discharge Plan: Home Plan to discharge in: Greater than 2 days - Code Status/Comfort Care Code Status Assessed: No Physician Review: Patient Assessed, Agree with Above Assessment and Plan Critical Care: Yes Time Spent Managing PTS Care (In Minutes): 20
[2022-11-29] MEDS: HYDROMORPHONE HCL 1 MG/ML INJ IV PRN ×4 (08:47→21:58)
[2022-11-29] MEDS: DAPTOmycin 600 MG in NA CHLORIDE 0.9% 100 ML IVPB SCH (09:27)
[2022-11-29 11:14] LABS: Hematocrit 23.4 % (39.6-49.0); Lymphocytes % 15.6 % (15.3-44.8); MPV 7.1 fL (7.6-11.3); RBC Red Blood Cell Count 2.63 M/uL (4.33-5.43)
--- NOTE | 2022-11-29 11:25 | EKG ---
Test Date: 2022-11-27 Test Time: 16:07:51 Network Systems Operator: ANAMIKA MEASUREMENT RESULTS: Intervals: Rate: 151 OR: 122 QRSD: 88 QT: 342 QTc: 542 [place]: P: 48 OR: 122 QRS: 47 T: 48 INTERPRETIVE STATEMENTS: Sinus tachycardia Nonspecific ST abnormality Abnormal ECG Compared to ECG 11/14/2022 16:02:17 ST (T wave) deviation now present Sinus rhythm no longer present Myocardial infarct finding no longer present Electronically Signed On 11-29-22 11:20:34 CDT by Justin Heredia
--- NOTE | 2022-11-29 11:46 | P.PN ---
Subjective Date of Service: 11/29/22 Primary Care Provider: MONICO Chief Complaint: Respiratory failure Subjective: Improving (Patient is improving been weaned off vasopressors he is alert responsive cooperative) Review of Systems is unable to be obtained Physical Examination - Vital Signs Temperature: 97.8 F Blood Pressure: 116/59 Pulse: 84 Respirations: 20 Pulse Ox (%): 98 - Physical Exam General: Alert, Cooperative Respiratory: Clear to auscultation bilaterally Cardiovascular: No edema, Normal S1 S2 - Studies Medications List Reviewed: Yes Assessment And Plan - Current Problems (Diagnosis) (1) Shock Current Visit: Yes Status: Acute Plan: Patient admitted with shock respiratory failure he is now recovering very well plan to wean off the vasopressors and the Precedex Labs chemistries reviewed is mildly anemic white count is declining and to wean off and extubate today once she is off vasopressors Labs reviewed chest x-ray shows diminished lung volumes otherwise clear patient is on minimal oxygen Physician Review: Patient Assessed, Agree with Above Assessment and Plan
[2022-11-29 15:56] LABS: Hematocrit 26.2 % (39.6-49.0)
[2022-11-29] MEDS ORDERED: DEXMEDETOMIDINE HCL 200 MCG in NA CHLORIDE 0.9% 98 ML IV SCH (17:00)
--- NOTE | 2022-11-29 18:44 | P.PN ---
Subjective Date of Service: 11/29/22 Primary Care Provider: MONICO Chief Complaint: Respiratory failure Patient remains intubated and awake, alert, non-verbal conversations Physical Examination - Vital Signs Temperature: 97.4 F Blood Pressure: 138/76 Pulse: 115 Respirations: 20 Pulse Ox (%): 99 - Physical Exam General: Alert, In no apparent distress, Cooperative HEENT: Mucous membr. moist/pink Neck: Supple Respiratory: Clear to auscultation bilaterally, Normal air movement Cardiovascular: Regular rate/rhythm Capillary refill: <2 Seconds Gastrointestinal: Other (soft, mild appropriate TTP, ND, blood staining on dressings from yesterday, wound irrigated, completely clear today, no blood tinge, wound repacked, iftikhar inplace) Musculoskeletal: No clubbing, Swelling Integumentary: Other (wounds stable, ) - Studies Medications List Reviewed: Yes Assessment And Plan - Current Problems (Diagnosis) (1) S/P exploratory laparotomy Current Visit: Yes Status: Acute Plan: Patient is a 37 year old man s/p Exploratory Laparotomy, Adhesiolysis with primary closure on 11-27-2022 Gen/ Neuro: + pain medication Rx currently given - dilaudid, patient has become responsive, asking for pain medication, has been given dilaudid PRN CVS: sinus tachycardia now resolved, hypotensive on levophed remains, phenylepherine has been weaned off. Dr. Montano Consulted, improved tachycardia from last evening. echo noted, no strain pattern, EF>80 Pulm: ventilator dependent, oxygenating well, continue vent management, wean PRN, recommend CT PE protocol to rule out pulmonary emboli, ultrasound of bilateral lower extremities are limited but no obvious DVT noted, Dr. Grigsby consulted, chest x ray - mild atelectasis, daily chest x ray. GI: serial exams, no blood on dressings, clean FEN: fluid boluses with LR to continue PRN, Electrolyte replacement protocol for Mg, Phos, K, nutrition- will hold on nutrition for now while unstable, continue IV fluid warmer, hot air blanket (BareHugger) PRN Endo: hyperglycemia - insulin GGT has been weaned off Renal: monitor urine output via both suprapubic and presley catheters, creatinine improved, urine output has increased ID: Merropenem, patient was given 1 dose of Rocephin preoperatively, started daptomycin Prophylaxis: Lovenox, will consider PPI if not able to wean off vent Tubes / Lines: PICC line, LEFT femoral central line, RIGHT arterial line, suprapubic catheter, presley catheter, NG tube, ET tube, rectal temp probe Heme: Hbg dropped today, likely mostly dilutional as he is positive fluid status after surgery, patient recieved transfusion, PT/OT - wait for now, Placement: will address after hemodynamically improved Wound: continue wound protection with santyl, Vashe, daily, cover with occlusive dressings away from fecal stream as much as possible, consider rectal tube Physician Review: Patient Assessed, Agree with Above Assessment and Plan
[2022-11-29] MEDS ORDERED: SODIUM CHLORIDE 0.9% 10ML INJ IV PRN (20:38)
[2022-11-29] MEDS: NA CHLORIDE 0.9% 1,000 ML IV SCH (20:55)
[2022-11-29] MEDS: ENOXAPARIN 40 MG/0.4 ML SQ SCH (20:56)
[2022-11-30] MEDS: Meropenem 1,000 MG in NA CHLORIDE 0.9% 100 ML IV SCH ×3 (00:50→16:20)
[2022-11-30] MEDS: HYDROMORPHONE HCL 1 MG/ML INJ IV PRN ×2 (02:01→05:59)
[2022-11-30 05:28] LABS: Absolute Lymphocytes (CBC) 2.1 K/uL (0.7-4.9); Hematocrit 23.3 % (39.6-49.0); MCV 88.9 fL (80-100); MPV 7.1 fL (7.6-11.3); RBC Red Blood Cell Count 2.62 M/uL (4.33-5.43)
[2022-11-30 05:44] LABS: Magnesium 1.8 mg/dL (1.6-2.4); Phosphorus 2.6 mg/dL (2.5-4.9)
[2022-11-30] MEDS ORDERED: MAGNESIUM SULFATE 1 gm IVPB 1 GM/100 ML BAG IV ONE (06:23)
[2022-11-30] MEDS: NA CHLORIDE 0.9% 1,000 ML IV SCH (07:00)
[2022-11-30] MEDS: INSULIN -REGULAR HUMAN 50 UNIT/0.5 ML ML SQ SCH ×4 (07:30→20:57)
[2022-11-30] MEDS: PANTOPRAZOLE 40 MG INJ IVP SCH (08:21)
[2022-11-30] MEDS: PROMETHAZINE INJ 25 MG/ML AMP IV PRN ×2 (08:22→19:48)
[2022-11-30] MEDS: JUVEN PACKET PO SCH ×2 (08:22→19:59)
[2022-11-30] MEDS ORDERED: HYDROMORPHONE HCL 2 MG/ML inj IV ONE (08:58)
[2022-11-30] MEDS: INSULIN GLARGINE 100 UNIT/ML SQ SCH (09:00)
[2022-11-30] MEDS: MUPIROCIN 2% OINT 22GM TUBE TOP SCH ×2 (09:00→21:50)
--- NOTE | 2022-11-30 09:14 | RAD REPORT ---
[facility] 6[facility]28 [facility] CLINICAL HISTORY: vent/intubated COMPARISON: Chest Single View dated 11/29/2022; Chest Single View dated 11/28/2022; Chest Single View dated 11/27/2022; Chest Single View dated 11/20/2022 TECHNIQUE: Portable AP view of the chest. FINDINGS: Ventricular shunt catheter courses obliquely across the chest wall and left upper abdomen. Other calcified shunt catheter tracts again seen. Decreased inspiratory effort limits evaluation. Progressive patchy perihilar opacities, as well as pe ripheral opacities in the left mid to lower lung. Central interstitial prominence. . No pneumothorax. There may be a small left pleural effusion. The cardiomediastinal contours are unremarkable. IMPRESSION: Progressive central and left basilar opacities, could reflect airspace opacities or atel ectasis with superimposed pulmonary edema.
--- NOTE | 2022-11-30 11:16 | P.PN ---
Subjective Date of Service: 11/30/22 Primary Care Provider: MONICO Chief Complaint: Respiratory failure Subjective: Improving (extubated. Off pressors) Review of Systems 10-point ROS is otherwise unremarkable General: Weakness Physical Examination - Vital Signs Temperature: 98.2 F Blood Pressure: 154/91 Pulse: 113 Respirations: 25 Pulse Ox (%): 100 - Physical Exam General: Alert, In no apparent distress HEENT: Atraumatic, PERRLA, EOMI Neck: Supple, JVD not distended Respiratory: Clear to auscultation bilaterally, Normal air movement Cardiovascular: Regular rate/rhythm, Normal S1 S2 Gastrointestinal: Normal bowel sounds, No tenderness Musculoskeletal: No tenderness Integumentary: No rashes Neurological: Normal speech, Normal tone, Normal affect Lymphatics: No axilla or inguinal lymphadenopathy - Studies Medications List Reviewed: Yes Assessment And Plan - Current Problems (Diagnosis) (1) Pressure ulcer of unspecified site, unspecified stage Current Visit: Yes Status: Chronic Plan: Patient seen by Dr Hong and Dr. Ching. No need for scrotal debridgment. Dr Ching would like to do the sacral wound. However would like to do a colectomy. this is in the interest of letting the wound heal without chronic fecal contamination. Roland has a long history of difficulty with his hygiene in this regard 5.15 plans for colectomy tomorrow. Qualifiers: Pressure injury location: ankle Pressure injury stage: stage 2 Laterality: unspecified laterality Qualified Code(s): L89.502 - Pressure ulcer of unspecified ankle, stage 2 (2) Hyperosmolar non-ketotic state due to type 2 diabetes mellitus Current Visit: No Status: Acute Plan: due to non compliance with insulin. I had a talk with him this morning. He may need therapy. He has a long history of non compliance. This can be frustrating to his providers. More importantly this behavior is most likely shortening his life expectancy. His sugars this morning are in the 150's Stop the insulin drip. Start him on sq insulin and start feeding him (3) Chronic suprapubic catheter Current Visit: Yes Status: Chronic Plan: Is leaking. Will consult Dr. Hong (4) Chronic pain disorder Onset Date: 05/17/17 Current Visit: No Status: Chronic Plan: restart his hydromorphine (5) Spina bifida Onset Date: 05/17/17 Current Visit: No Status: Chronic Plan: Wheelchair bound Qualifiers: Spinal region: lumbar (6) Depression Current Visit: Yes Status: Chronic Plan: Patient has been having a long history of non compliance with his medication. Discussed going to a nursing facility to improve his quality of care. He is very willing. The patient has been had a history of depression. 1 suicide attempt in the past. He is not actively suicidal. Will start him an a ntidepressant and look for a senior living councillor for the patient. I need these reminders that life has been very unfair to Roland. He acts out at times due to this. Qualifiers: Depression Type: major depressive disorder Major depression recurrence: recurrent Active/Remission status: currently active Psychotic features: without psychotic features (7) Anemia Current Visit: Yes Status: Acute Plan: will transfuse 2 more units of blood check for occult blood from a GI source. Qualifiers: Anemia type: unspecified type Qualified Code(s): D64.9 - Anemia, unspecified Discharge Plan: Home Plan to discharge in: 24 Hours - Code Status/Comfort Care Code Status Assessed: No Code Status: Full Code Physician Review: Patient Assessed, Agree with Above Assessment and Plan Critical Care: Yes Time Spent Managing PTS Care (In Minutes): 30
--- NOTE | 2022-11-30 12:11 | RAD REPORT ---
EXAM DESCRIPTION: CT - Chest For Pe Angio - 11/30/2022 10:27 am CLINICAL HISTORY: r/o PE COMPARISON: Chest Abd Pelvis Wo Con dated 06/27/2022; Chest For Pe Angio dated 11/26/2017; CT CHEST A BD PELVIS WO CONT dated 05/04/2015 TECHNIQUE: Thin axial CT images of the chest were obtained following administration of 100 mL Isovue 370 IV contrast. Multiplanar reconstructions, and maximum intensity projection reconstructions were generated and reviewed. Exam utilizes a protocol for optimal evaluation of pulmonary arterial tree. All CT scans are performed using dose optimization technique as appropriate and may include automated exposure control or mA/KV adjustment according to patient size. FINDINGS: Suboptimal diagnostic quality due to extensive beam hardening artifact in the mid to lower lungs related to body habitus and arm positioning. Pulmonary arteries are unremarkable allowing for these limitations. No central emboli or other suspicious finding, although evaluation of the peripher al pulmonary arterial circulation is markedly limited. No acute or significant aorta findings. Central vascular engorgement. Small bilateral pleural effusions more so on the right. Patchy central and dependent airspace opacities. No pleural thickening or pleural effusion. No pneumothorax. No abnormal mediastinal or hilar masses or lymphadenopathy seen. No chest wall mass or abnormal axill iary lymphadenopathy. IMPRESSION: Technically limited exam as discussed above. No findings to suggest acute central pulmon shanelle emboli within these limitations. Central congestive changes with dependent opacities and small effusions. Findings may relate to pulmo nary edema.
[2022-11-30] MEDS: HYDROMORPHONE HCL 2 MG/ML inj IV PRN ×4 (12:30→22:39)
--- NOTE | 2022-11-30 12:50 | P.PN ---
Subjective Date of Service: 11/30/22 Primary Care Provider: MONICO Chief Complaint: Respiratory failure Patient extubated, only complaints of pain, conversive, oriented. No acute events, had a 2 second sinus pause which was asymptomatic, has not recurred. off all pressors. Physical Examination - Vital Signs Temperature: 98.2 F Blood Pressure: 154/91 Pulse: 113 Respirations: 23 Pulse Ox (%): 96 - Physical Exam General: Alert, In no apparent distress, Cooperative HEENT: Mucous membr. moist/pink Neck: Supple, Without JVD or thyroid abnormality Respiratory: Diminished Cardiovascular: Other (tachycardia, otherwise normal) Gastrointestinal: Other (soft, mild appropriate TTP, ND, wound @ midline with minimal serous drainage, no bleeding, iftikhar in place.) Musculoskeletal: Swelling (improved, anasarca) Integumentary: Pressure ulcer (perineal wounds stable), Other Neurological: Normal speech - Studies Medications List Reviewed: Yes Assessment And Plan - Current Problems (Diagnosis) (1) S/P exploratory laparotomy Current Visit: Yes Status: Acute Plan: Patient is a 37 year old man s/p Exploratory Laparotomy, Adhesiolysis with primary closure on 11-27-2022 Gen/ Neuro: + pain medication Rx currently given - dilaudid, patient is extubated, asking for pain medication, has been given dilaudid PRN will modify dose CVS: sinus tachycardia now recurred, possible due to pain, hypotension has resolved, off all pressors, Dr. Montano Consulted, echo noted, no strain pattern, EF>80 Pulm: Extubated, oxygenating well, CT PE protocol noted, no obvious PE, but limited study, ultrasound of bilateral lower extremities are limited but no obvious DVT noted, Dr. Grigsby consulted, chest x ray - mild atelectasis, daily chest x ray. GI: serial exams, no blood on dressings, clean FEN: Electrolyte replacement protocol for Mg, Phos, K, nutrition- patient started on PO clears but has no appetite, will start TPN, hot air blanket (BareHugger) PRN, calorie count. Endo: hyperglycemia - insulin GGT has been weaned off, anticipate hyperglycemia with start of TPN Renal: monitor urine output via both suprapubic and presley catheters, creatinine improved, urine output has increased ID: Merropenem, patient was given 1 dose of Rocephin preoperatively, daptomycin Prophylaxis: Lovenox, incentive spirometry Tubes / Lines: PICC line, LEFT femoral central line, RIGHT arterial line, suprapubic catheter, presley catheter, rectal temp probe Heme: Hbg dropped today, likely mostly dilutional as he is positive fluid status after surgery, monitor for now PT/OT - consult, Placement: will address after hemodynamically improved Wound: continue wound protection with santyl, Vashe, daily, cover with occlusive dressings away from fecal stream as much as possible, consider rectal tube Physician Review: Patient Assessed, Agree with Above Assessment and Plan
[2022-11-30] MEDS ORDERED: AA 5%/D20W/ELECTROLYTES-TPN 2,000 ML, Lipids 20% 250 ML with MULTIVITAMINS INJ 10 ML IV SCH ×3 (17:00)
[2022-11-30] MEDS: ENOXAPARIN 40 MG/0.4 ML SQ SCH (19:58)
[2022-11-30] MEDS: COLLAGENASE 30 GM OINTMENT TOP SCH (21:48)
[2022-11-30] MEDS: MEDIHONEY 44 ML TOPICAL TUBE TOP SCH (21:49)
[2022-12-01] MEDS: Meropenem 1,000 MG in NA CHLORIDE 0.9% 100 ML IV SCH ×3 (00:48→16:47)
[2022-12-01] MEDS: PROMETHAZINE INJ 25 MG/ML AMP IV PRN ×4 (01:07→18:11)
[2022-12-01] MEDS: HYDROMORPHONE HCL 2 MG/ML inj IV PRN ×8 (01:12→21:02)
[2022-12-01 04:47] LABS: Absolute Lymphocytes (CBC) 2.5 K/uL (0.7-4.9); Hematocrit 24.6 % (39.6-49.0); Lymphocytes % 22.5 % (15.3-44.8); MCV 90.5 fL (80-100); MPV 6.9 fL (7.6-11.3); RBC Red Blood Cell Count 2.72 M/uL (4.33-5.43)
[2022-12-01 05:06] LABS: Magnesium 1.8 mg/dL (1.6-2.4); Phosphorus 3.7 mg/dL (2.5-4.9)
[2022-12-01] MEDS ORDERED: MAGNESIUM SULFATE 1 gm IVPB 1 GM/100 ML BAG IV ONE (07:00)
[2022-12-01] MEDS: INSULIN -REGULAR HUMAN 50 UNIT/0.5 ML ML SQ SCH ×4 (07:30→19:58)
[2022-12-01] MEDS: PANTOPRAZOLE 40 MG INJ IVP SCH (08:08)
[2022-12-01] MEDS: INSULIN GLARGINE 100 UNIT/ML SQ SCH (08:08)
[2022-12-01] MEDS: JUVEN PACKET PO SCH ×2 (08:10→20:51)
--- NOTE | 2022-12-01 08:27 | RAD REPORT ---
EXAM DESCRIPTION: [facility] Single View12/01/2022 5:45 am CLINICAL HISTORY: Ventilated/intubated COMPARISON: November 30 FINDINGS: Endotracheal tube not visualized within the field of view Mild bilateral pulmonary opacities partially resolved Heart is normal size. CHEESE WRAPPER shunt courses the right hemithorax IMPRESSION: Partial resolution in bilateral pulmonary opacities
[2022-12-01] MEDS: MUPIROCIN 2% OINT 22GM TUBE TOP SCH ×2 (09:45→20:47)
[2022-12-01] MEDS: COLLAGENASE 30 GM OINTMENT TOP SCH (10:00)
[2022-12-01] MEDS: MEDIHONEY 44 ML TOPICAL TUBE TOP SCH (10:00)
[2022-12-01] MEDS ORDERED: HYDROMORPHONE HCL 1 MG/ML INJ IV ONE (11:04)
--- NOTE | 2022-12-01 11:57 | P.PN ---
Subjective Date of Service: 12/01/22 Primary Care Provider: MONICO Chief Complaint: Respiratory failure Subjective: No new changes Review of Systems 10-point ROS is otherwise unremarkable Physical Examination - Vital Signs Temperature: 97.2 F Blood Pressure: 141/78 Pulse: 114 Respirations: 21 Pulse Ox (%): 92 - Physical Exam General: Alert, In no apparent distress HEENT: Atraumatic, PERRLA, EOMI Neck: Supple, JVD not distended Respiratory: Clear to auscultation bilaterally, Normal air movement Cardiovascular: Regular rate/rhythm, Normal S1 S2 Gastrointestinal: Normal bowel sounds, No tenderness Musculoskeletal: No tenderness Integumentary: No rashes Neurological: Normal speech, Normal tone, Normal affect Lymphatics: No axilla or inguinal lymphadenopathy - Studies Medications List Reviewed: Yes Assessment And Plan - Current Problems (Diagnosis) (1) Pressure ulcer of unspecified site, unspecified stage Current Visit: Yes Status: Chronic Plan: Patient seen by Dr Hong and Dr. Ching. No need for scrotal debridgment. Dr Ching would like to do the sacral wound. However would like to do a colectomy. this is in the interest of letting the wound heal without chronic fecal contamination. Roland has a long history of difficulty with his hygiene in this regard 5.15 plans for colectomy tomorrow. Qualifiers: Pressure injury location: ankle Pressure injury stage: stage 2 Laterality: unspecified laterality Qualified Code(s): L89.502 - Pressure ulcer of unspecified ankle, stage 2 (2) Hyperosmolar non-ketotic state due to type 2 diabetes mellitus Current Visit: No Status: Acute Plan: due to non compliance with insulin. I had a talk with him this morning. He may need therapy. He has a long history of non compliance. This can be frustrating to his providers. More importantly this behavior is most likely shortening his life expectancy. His sugars this morning are in the 150's Stop the insulin drip. Start him on sq insulin and start feeding him (3) Chronic suprapubic catheter Current Visit: Yes Status: Chronic Plan: Is leaking. Will consult Dr. Hong (4) Chronic pain disorder Onset Date: 05/17/17 Current Visit: No Status: Chronic Plan: restart his hydromorphine (5) Spina bifida Onset Date: 11/03/17 Current Visit: No Status: Chronic Plan: Wheelchair bound Qualifiers: Spinal region: lumbar (6) Depression Current Visit: Yes Status: Chronic Plan: Patient has been having a long history of non compliance with his medication. Discussed going to a nursing facility to improve his quality of care. He is very willing. The patient has been had a history of depression. 1 suicide attempt in the past. He is not actively suicidal. Will start him an antidepressant and look for a prison councillor for the patient. I need these reminders that life has been very unfair to Roland. He acts out at times due to this. Qualifiers: Depression Type: major depressive disorder Major depression recurrence: recurrent Active/Remission status: currently active Psychotic features: without psychotic features (7) Anemia Current Visit: Yes Status: Acute Plan: will transfuse 2 more units of blood check for occult blood from a GI source. Qualifiers: Anemia type: unspecified type Qualified Code(s): D64.9 - Anemia, unspecified Discharge Plan: Home Plan to discharge in: 24 Hours - Code Status/Comfort Care Code Status Assessed: No Code Status: Full Code Physician Review: Patient Assessed, Agree with Above Assessment and Plan Critical Care: No Time Spent Managing PTS Care (In Minutes): 20
[2022-12-01] MEDS ORDERED: ALTEPLASE 2 MG/VIAL IV ONE (12:00)
[2022-12-01] MEDS: NA CHLORIDE 0.9% 1,000 ML IV SCH (16:47)
[2022-12-01] MEDS ORDERED: AA 5%/D20W/ELECTROLYTES-TPN 2,000 ML IV SCH (17:00)
[2022-12-01] MEDS: ENOXAPARIN 40 MG/0.4 ML SQ SCH (20:29)
[2022-12-02] MEDS: Meropenem 1,000 MG in NA CHLORIDE 0.9% 100 ML IV SCH ×3 (00:16→16:32)
[2022-12-02] MEDS: PROMETHAZINE INJ 25 MG/ML AMP IV PRN ×5 (05:30→22:34)
[2022-12-02] MEDS: HYDROMORPHONE HCL 2 MG/ML inj IV PRN ×8 (05:30→22:33)
[2022-12-02 06:23] LABS: Absolute Lymphocytes (CBC) 2.7 K/uL (0.7-4.9); Hematocrit 25.6 % (39.6-49.0); Lymphocytes % 24.8 % (15.3-44.8); MCV 91.9 fL (80-100); MPV 7.4 fL (7.6-11.3); RBC Red Blood Cell Count 2.79 M/uL (4.33-5.43)
[2022-12-02 06:40] LABS: Magnesium 1.8 mg/dL (1.6-2.4); Phosphorus 4.4 mg/dL (2.5-4.9)
[2022-12-02] MEDS: INSULIN -REGULAR HUMAN 50 UNIT/0.5 ML ML SQ SCH ×4 (07:30→19:58)
[2022-12-02] MEDS: INSULIN GLARGINE 100 UNIT/ML SQ SCH (07:36)
[2022-12-02] MEDS ORDERED: MAGNESIUM SULFATE 1 gm IVPB 1 GM/100 ML BAG IV ONE (08:00)
[2022-12-02] MEDS: PANTOPRAZOLE 40 MG INJ IVP SCH (08:13)
[2022-12-02] MEDS: MUPIROCIN 2% OINT 22GM TUBE TOP SCH ×2 (08:14→20:07)
[2022-12-02] MEDS: JUVEN PACKET PO SCH ×2 (08:14→20:10)
[2022-12-02] MEDS: MEDIHONEY 44 ML TOPICAL TUBE TOP SCH (11:00)
[2022-12-02] MEDS: COLLAGENASE 30 GM OINTMENT TOP SCH (11:00)
[2022-12-02] MEDS ORDERED: HYDROMORPHONE HCL 1 MG/ML INJ IV ONE (16:35)
--- NOTE | 2022-12-02 16:35 | P.PN ---
Date of Service: 12/02/22 Subjective Subjective: Patient doing well with no new changes; still with pain; no help at home and thinks he would benefit from LTAC placement; will d/w PCP Review of Systems 10-point ROS is otherwise unremarkable Physical Examination - Vital Signs reviewed - Physical Exam General: Alert, In no apparent distress Respiratory: Clear to auscultation bilaterally, Normal air movement Cardiovascular: Regular rate/rhythm, Normal S1 S2 Gastrointestinal: Normal bowel sounds, No tenderness Musculoskeletal: No tenderness Neurological: Normal speech, Normal tone, Normal affect Assessment And Plan - Current Problems (Diagnosis) (1) Pressure ulcer of unspecified site, unspecified stage Current Visit: Yes Status: Chronic Pressure injury location: ankle Pressure injury stage: stage 2 Laterality: unspecified laterality Qualified Code(s): L89.502 - Pressure ulcer of unspecified ankle, stage 2 (2) Hyperosmolar non-ketotic state due to type 2 diabetes mellitus Current Visit: No Status: Acute (3) Chronic suprapubic catheter Current Visit: Yes Status: Chronic (4) Chronic pain disorder Onset Date: 05/17/17 Current Visit: No Status: Chronic (5) Spina bifida Onset Date: 05/17/17 Current Visit: No Status: Chronic Spinal region: lumbar (6) Depression Current Visit: Yes Status: Chronic Depression Type: major depressive disorder Major depression recurrence: recurrent Active/Remission status: currently active Psychotic features: without psychotic features (7) Anemia Current Visit: Yes Status: Acute Anemia type: unspecified type Qualified Code(s): D64.9 - Anemia, unspecified 1. Continue with IV abx 2. s/p diverting colostomy; wound management 3. Strict BS control 4. Pain control 5. Wound care 6. Monior H&H 7. GI/DVT prophylaxis
[2022-12-02] MEDS: ENOXAPARIN 40 MG/0.4 ML SQ SCH (20:07)
[2022-12-03] MEDS: Meropenem 1,000 MG in NA CHLORIDE 0.9% 100 ML IV SCH ×3 (01:01→16:59)
[2022-12-03] MEDS: HYDROMORPHONE HCL 2 MG/ML inj IV PRN ×6 (02:28→23:36)
[2022-12-03] MEDS: PROMETHAZINE INJ 25 MG/ML AMP IV PRN ×3 (05:08→23:36)
[2022-12-03 05:39] LABS: Absolute Lymphocytes (CBC) 2.6 K/uL (0.7-4.9); Hematocrit 26.3 % (39.6-49.0); Lymphocytes % 18.9 % (15.3-44.8); MCV 91.4 fL (80-100); MPV 7.2 fL (7.6-11.3); RBC Red Blood Cell Count 2.87 M/uL (4.33-5.43)
[2022-12-03 05:58] LABS: Albumin 2.6 g/dL (3.4-5.0); Bilirubin Total 0.8 mg/dL (0.2-1.0); Magnesium 1.7 mg/dL (1.6-2.4); Potassium 3.9 mEq/L (3.5-5.1); Protein, Total 7.1 g/dL (6.4-8.2)
[2022-12-03] MEDS ORDERED: MAGNESIUM SULFATE 1 gm IVPB 1 GM/100 ML BAG IV ONE ×2 (07:00→07:11)
[2022-12-03] MEDS: INSULIN -REGULAR HUMAN 50 UNIT/0.5 ML ML SQ SCH ×4 (07:30→21:00)
[2022-12-03] MEDS: PANTOPRAZOLE 40 MG INJ IVP SCH ×2 (08:13→08:14)
[2022-12-03] MEDS: JUVEN PACKET PO SCH ×2 (08:16→21:00)
[2022-12-03] MEDS: NA CHLORIDE 0.9% 1,000 ML IV SCH (08:21)
[2022-12-03] MEDS: COLLAGENASE 30 GM OINTMENT TOP SCH (08:24)
[2022-12-03] MEDS: MEDIHONEY 44 ML TOPICAL TUBE TOP SCH (08:28)
[2022-12-03] MEDS: INSULIN GLARGINE 100 UNIT/ML SQ SCH (08:29)
[2022-12-03] MEDS: MUPIROCIN 2% OINT 22GM TUBE TOP SCH ×2 (08:43→21:00)
[2022-12-03] MEDS ORDERED: POTASSIUM CL SA 10 MEQ TAB PO ONE (09:00)
--- NOTE | 2022-12-03 15:34 | P.PN ---
Subjective Date of Service: 12/03/22 Primary Care Provider: MONICO Chief Complaint: Respiratory failure Subjective: No new changes Patient seems in good spirits. Till asked about pain control. Then states he is in a lot of pain Review of Systems 10-point ROS is otherwise unremarkable Physical Examination - Vital Signs Temperature: 99.2 F Blood Pressure: 124/79 Pulse: 111 Respirations: 18 Pulse Ox (%): 92 - Physical Exam General: Alert, In no apparent distress HEENT: Atraumatic, PERRLA, EOMI Neck: Supple, JVD not distended Respiratory: Clear to auscultation bilaterally, Normal air movement Cardiovascular: Regular rate/rhythm, Normal S1 S2 Gastrointestinal: Normal bowel sounds, No tenderness Musculoskeletal: No tenderness Integumentary: No rashes Neurological: Normal speech, Normal tone, Normal affect Lymphatics: No axilla or inguinal lymphadenopathy - Studies Medications List Reviewed: Yes Assessment And Plan - Current Problems (Diagnosis) (1) Pressure ulcer of unspecified site, unspecified stage Current Visit: Yes Status: Chronic Plan: Patient seen by Dr Hong and Dr. Ching. No need for scrotal debridgment. Dr Ching would like to do the sacral wound. However would like to do a colectomy. this is in the interest of letting the wound heal without chronic fecal contamination. Roland has a long history of difficulty with his hygiene in this regard 5.15 plans for colectomy tomorrow. Qualifiers: Pressure injury location: ankle Pressure injury stage: stage 2 Laterality: unspecified laterality Qualified Code(s): L89.502 - Pressure ulcer of unspecified ankle, stage 2 (2) Chronic suprapubic catheter Current Visit: Yes Status: Chronic Plan: Is leaking. Will consult Dr. Hong (3) Chronic pain disorder Onset Date: 05/17/17 Current Visit: No Status: Chronic Plan: restart his hydromorphine (4) Spina bifida Onset Date: 05/17/17 Current Visit: No Status: Chronic Plan: Wheelchair bound Qualifiers: Spinal region: lumbar (5) Depression Current Visit: Yes Status: Chronic Plan: Patient has been having a long history of non compliance with his medication. Discussed going to a nursing facility to improve his quality of care. He is very willing. The patient has been had a history of depression. 1 suicide attempt in the past. He is not actively suicidal. Will start him an antidepressant and look for a adjunct faculty for medical terminology councillor for the patient. I need these reminders that life has been very unfair to Roland. He acts out at times due to this. Qualifiers: Depression Type: major depressive disorder Major depression recurrence: recurrent Active/Remission status: currently active Psychotic features: without psychotic features (6) Anemia Current Visit: Yes Status: Acute Plan: will transfuse 2 more units of blood check for occult blood from a GI source. Qualifiers: Anemia type: unspecified type Qualified Code(s): D64.9 - Anemia, unspecified (7) Diabetes Current Visit: No Status: Chronic Qualifiers: Diabetes mellitus type: type 2 Diabetes mellitus adjunct faculty for medical terminology insulin use: with adjunct faculty for medical terminology use Diabetes mellitus complication status: with skin complications Diabetes mellitus complication detail: with foot ulcer Qualified Code(s): E11.621 - Type 2 diabetes mellitus with foot ulcer; L97.509 - Non-pressure chronic ulcer of other part of unspecified foot with unspecified severity; Z79.4 - watermaster (current) use of insulin Discharge Plan: Skilled Nursing - Code Status/Comfort Care Code Status Assessed: No Physician Review: Patient Assessed, Agree with Above Assessment and Plan Critical Care: No Time Spent Managing PTS Care (In Minutes): 20
[2022-12-03] MEDS ORDERED: AA 5%/D20W/ELECTROLYTES-TPN 2,000 ML, Lipids 20% 250 ML with MULTIVITAMINS INJ 10 ML IV SCH ×3 (17:00)
--- NOTE | 2022-12-03 18:32 | P.PN ---
Subjective Date of Service: 12/02/22 Primary Care Provider: MONICO Chief Complaint: Respiratory failure No Acute Events, tolerating diet well, + bowel movements. only complains of abdominal pain, not changed from prior Physical Examination - Vital Signs Temperature: 98.9 F Blood Pressure: 148/88 Pulse: 108 Respirations: 18 Pulse Ox (%): 92 - Physical Exam General: Alert, In no apparent distress, Cooperative Gastrointestinal: Non-distended, No ascites, No masses, No rebound, No guarding, Other (mild appropriate TTP, ND,incision is clean and well packed, no infection) Integumentary: Other (wound stable) - Studies Medications List Reviewed: Yes Assessment And Plan - Current Problems (Diagnosis) (1) S/P exploratory laparotomy Current Visit: Yes Status: Acute Plan: Patient is a 37 year old man s/p Exploratory Laparotomy, Adhesiolysis with primary closure on 11-27-2022 Gen/ Neuro: + pain medication Rx currently given - dilaudid, patient is extubated, asking for pain medication, has been given dilaudid PRN will modify dose CVS: sinus tachycardia now recurred, possible due to pain, hypotension has resolved, off all pressors, Dr. Montano Consulted, echo noted, no strain pattern, EF>80 Pulm: Extubated, oxygenating well, CT PE protocol noted, no obvious PE, but limited study, ultrasound of bilateral lower extremities are limited but no obvious DVT noted, Dr. Grigsby consulted, chest x ray - mild atelectasis, daily chest x ray. GI: serial exams, no blood on dressings, clean FEN: Electrolyte replacement protocol for Mg, Phos, K, nutrition- patient started on PO clears but has no appetite, will start TPN, hot air blanket (BareHugger) PRN, calorie count. diet advanced Endo: hyperglycemia - insulin GGT has been weaned off, anticipate hyperglycemia with start of TPN Renal: monitor urine output via both suprapubic and presley catheters, creatinine improved, urine output has stable ID: Merropenem, patient was given 1 dose of Rocephin preoperatively, wean off Prophylaxis: Lovenox, incentive spirometry Tubes / Lines: PICC line, LEFT femoral central line, RIGHT arterial line, suprapubic catheter, presley catheter, rectal temp probe, DC picc line due to disfunction Heme: Hbg stable today, monitor for now PT/OT - consult, Placement: [facility] vs considering Hospice Wound: continue wound protection with santyl, Vashe, daily, cover with occlusive dressings away from fecal stream as much as possible, consider rectal tube Physician Review: Patient Assessed, Agree with Above Assessment and Plan
--- NOTE | 2022-12-03 18:32 | P.PN ---
Subjective Date of Service: 12/01/22 Primary Care Provider: MONICO Chief Complaint: Respiratory failure No Acute Events, tolerating diet well, + bowel movements. only complains of abdominal pain, not changed from prior Physical Examination - Vital Signs Temperature: 98.9 F Blood Pressure: 148/88 Pulse: 108 Respirations: 18 Pulse Ox (%): 92 - Physical Exam General: Alert, In no apparent distress, Cooperative HEENT: Mucous membr. moist/pink Respiratory: Clear to auscultation bilaterally Cardiovascular: Regular rate/rhythm Gastrointestinal: Non-distended, No masses, No rebound, No guarding, Other (mild appropriate TTP, ND,incision is clean and well packed, no infection) Integumentary: Other (perineal wound unchanged) Neurological: Normal speech - Studies Medications List Reviewed: Yes Assessment And Plan - Current Problems (Diagnosis) (1) S/P exploratory laparotomy Current Visit: Yes Status: Acute Plan: Patient is a 37 year old man s/p Exploratory Laparotomy, Adhesiolysis with primary closure on 11-27-2022 Gen/ Neuro: + pain medication Rx currently given - dilaudid, patient is extubated, asking for pain medication, has been given dilaudid PRN will modify dose CVS: sinus tachycardia now recurred, possible due to pain, hypotension has resolved, off all pressors, Dr. Montano Consulted, echo noted, no strain pattern, EF>80 Pulm: Extubated, oxygenating well, CT PE protocol noted, no obvious PE, but limited study, ultrasound of bilateral lower extremities are limited but no obvious DVT noted, Dr. Grigbsy consulted, chest x ray - mild atelectasis, daily chest x ray. GI: serial exams, no blood on dressings, clean FEN: Electrolyte replacement protocol for Mg, Phos, K, nutrition- patient started on PO clears but has no appetite, will start TPN, hot air blanket (BareHugger) PRN, calorie count. diet advanced Endo: hyperglycemia - insulin GGT has been weaned off, anticipate hyperglycemia with start of TPN Renal: monitor urine output via both suprapubic and presley catheters, creatinine improved, urine output has stable ID: Merropenem, patient was given 1 dose of Rocephin preoperatively, wean off Prophylaxis: Lovenox, incentive spirometry Tubes / Lines: PICC line, LEFT femoral central line, RIGHT arterial line, suprapubic catheter, presley catheter, rectal temp probe, DC picc line due to disfunction Heme: Hbg stable today, monitor for now PT/OT - consult, Placement: [facility] vs considering Hospice Wound: continue wound protection with santyl, Vashe, daily, cover with occlusive dressings away from fecal stream as much as possible, consider rectal tube Physician Review: Patient Assessed, Agree with Above Assessment and Plan
--- NOTE | 2022-12-03 18:33 | P.PN ---
Subjective Date of Service: 12/03/22 Primary Care Provider: MONICO Chief Complaint: Respiratory failure No Acute Events, tolerating diet well, + bowel movements. only complains of abdominal pain, not changed from prior Physical Examination - Vital Signs Temperature: 98.9 F Blood Pressure: 148/88 Pulse: 108 Respirations: 18 Pulse Ox (%): 92 - Physical Exam General: Alert, In no apparent distress, Cooperative Gastrointestinal: Non-distended, No ascites, No tenderness, No masses, No rebound, No guarding, Other (mild appropriate TTP, ND,incision is clean and well packed, no infection) Integumentary: Other (perineal wound stable) Neurological: Normal speech - Studies Medications List Reviewed: Yes Assessment And Plan - Current Problems (Diagnosis) (1) S/P exploratory laparotomy Current Visit: Yes Status: Acute Plan: Patient is a 37 year old man s/p Exploratory Laparotomy, Adhesiolysis with primary closure on 11-27-2022 Gen/ Neuro: + pain medication Rx currently given - dilaudid, patient is extubated, asking for pain medication, has been given dilaudid PRN will modify dose CVS: sinus tachycardia now recurred, possible due to pain, hypotension has resolved, off all pressors, Dr. Montano Consulted, echo noted, no strain pat tern, EF>80 Pulm: Extubated, oxygenating well, CT PE protocol noted, no obvious PE, but limited study, ultrasound of bilateral lower extremities are limited but no obvious DVT noted, Dr. Grigsby consulted, chest x ray - mild atelectasis, daily chest x ray. GI: serial exams, no blood on dressings, clean FEN: Electrolyte replacement protocol for Mg, Phos, K, nutrition- patient started on PO clears but has no appetite, will start TPN, hot air blanket ([employer]ger) PRN, calorie count. diet advanced Endo: hyperglycemia - insulin GGT has been weaned off, anticipate hyperglycemia with start of TPN Renal: monitor urine output via both suprapubic and presley catheters, creatinine improved, urine output has stable ID: Merropenem, patient was given 1 dose of Rocephin preoperatively, wean off Prophylaxis: Lovenox, incentive spirometry Tubes / Lines: PICC line, LEFT femoral central line, RIGHT arterial line, suprapubic catheter, presley catheter, rectal temp probe, DC picc line due to disfunction Heme: Hbg stable today, monitor for now PT/OT - consult, Placement: [facility] vs considering Hospice Wound: continue wound protection with santyl, Vashe, daily, cover with occlusive dressings away from fecal stream as much as possible, consider rectal tube Physician Review: Patient Assessed, Agree with Above Assessment and Plan
[2022-12-03] MEDS: ENOXAPARIN 40 MG/0.4 ML SQ SCH (22:30)
[2022-12-04] MEDS: HYDROMORPHONE HCL 2 MG/ML inj IV PRN ×6 (03:04→22:28)
[2022-12-04] MEDS: Meropenem 1,000 MG in NA CHLORIDE 0.9% 100 ML IV SCH ×3 (04:02→16:25)
[2022-12-04] MEDS: PROMETHAZINE INJ 25 MG/ML AMP IV PRN ×3 (05:52→22:28)
[2022-12-04 07:21] LABS: Absolute Lymphocytes (CBC) 2.7 K/uL (0.7-4.9); Hematocrit 27.7 % (39.6-49.0); Lymphocytes % 19.2 % (15.3-44.8); MCV 92.9 fL (80-100); MPV 7.8 fL (7.6-11.3); RBC Red Blood Cell Count 2.98 M/uL (4.33-5.43)
[2022-12-04] MEDS: INSULIN -REGULAR HUMAN 50 UNIT/0.5 ML ML SQ SCH ×4 (07:30→20:01)
[2022-12-04 07:34] LABS: Magnesium 1.8 mg/dL (1.6-2.4); Phosphorus 3.7 mg/dL (2.5-4.9); Potassium 4.1 mEq/L (3.5-5.1)
--- NOTE | 2022-12-04 08:22 | P.PN ---
Subjective Date of Service: 12/04/22 Primary Care Provider: MONICO Chief Complaint: Respiratory failure Subjective: No new changes Patient seems in good spirits. Till asked about pain control. Then states he is in a lot of pain Review of Systems 10-point ROS is otherwise unremarkable Physical Examination - Vital Signs Temperature: 98.9 F Blood Pressure: 148/88 Pulse: 108 Respirations: 18 Pulse Ox (%): 92 - Physical Exam General: Alert, In no apparent distress HEENT: Atraumatic, PERRLA, EOMI Neck: Supple, JVD not distended Respiratory: Clear to auscultation bilaterally, Normal air movement Cardiovascular: Regular rate/rhythm, Normal S1 S2 Gastrointestinal: Normal bowel sounds, No tenderness Musculoskeletal: No tenderness Integumentary: No rashes Neurological: Normal speech, Normal tone, Normal affect Lymphatics: No axilla or inguinal lymphadenopathy - Studies Medications List Reviewed: Yes Assessment And Plan - Current Problems (Diagnosis) (1) Pressure ulcer of unspecified site, unspecified stage Current Visit: Yes Status: Chronic Plan: Patient seen by Dr Hong and Dr. Ching. No need for scrotal debridgment. Dr Ching would like to do the sacral wound. However would like to do a colectomy. this is in the interest of letting the wound heal without chronic fecal contamination. Roland has a long history of difficulty with his hygiene in this regard 5.23 start weaning his insulin. Will not be trying a coloectomy on this patient Will see if we can get him into [facility]. If not will have to send him home. This is going to be difficult. As we cannot find home health to take Roland. He has burned quite a few bridges in the local medical community. Qualifiers: Pressure injury location: ankle Pressure injury stage: stage 2 L aterality: unspecified laterality Qualified Code(s): L89.502 - Pressure ulcer of unspecified ankle, stage 2 (2) Chronic suprapubic catheter Current Visit: Yes Status: Chronic Plan: Is leaking. Will consult Dr. Hong (3) Chronic pain disorder Onset Date: 05/17/17 Current Visit: No Status: Chronic Plan: restart his hydromorphine (4) Spina bifida Onset Date: 05/17/17 Current Visit: No Status: Chronic Plan: Wheelchair bound Qualifiers: Spinal region: lumbar (5) Depression Current Visit: Yes Status: Chronic Plan: Patient has been having a long history of non compliance with his medication. Discussed going to a nursing facility to improve his quality of care. He is very willing. The patient has been had a history of depression. 1 suicide attempt in the past. He is not actively suicidal. Will start him an antidepressant and look for a longterm councillor for the patient. I need these reminders that life has been very unfair to Roland. He acts out at times due to this. Qualifiers: Depression Type: major depressive disorder Major depression recurrence: recurrent Active/Remission status: currently active Psychotic features: without psychotic features (6) Anemia Current Visit: Yes Status: Acute Plan: will transfuse 2 more units of blood check for occult blood from a GI source. 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
[2022-12-04] MEDS: INSULIN GLARGINE 100 UNIT/ML SQ SCH (08:55)
[2022-12-04] MEDS: COLLAGENASE 30 GM OINTMENT TOP SCH (08:56)
[2022-12-04] MEDS: MEDIHONEY 44 ML TOPICAL TUBE TOP SCH (08:56)
[2022-12-04] MEDS: MUPIROCIN 2% OINT 22GM TUBE TOP SCH ×2 (08:56→20:02)
[2022-12-04] MEDS: JUVEN PACKET PO SCH ×2 (08:57→20:01)
[2022-12-04] MEDS: NITROFURAN MACRO 100 MG CAP PO SCH (20:01)
[2022-12-04] MEDS: ENOXAPARIN 40 MG/0.4 ML SQ SCH (20:01)
[2022-12-05] MEDS: HYDROMORPHONE HCL 2 MG/ML inj IV PRN ×2 (04:04→09:56)
[2022-12-05] MEDS ORDERED: PANTOPRAZOLE 40MG TABLET PO SCH (06:30)
[2022-12-05] MEDS: INSULIN -REGULAR HUMAN 50 UNIT/0.5 ML ML SQ SCH (07:30)
--- NOTE | 2022-12-05 08:24 | P.DS ---
Admission Date: 11/14/22 Discharge Date: 12/05/22 Primary Care Provider: MONICO Disposition: ROUTINE DISCHARGE Discharge Condition: FAIR Reason for Admission: Respiratory failure - Problems (1) Pressure ulcer of unspecified site, unspecified stage Current Visit: Yes Status: Chronic Qualifiers: Pressure injury location: ankle Pressure injury stage: stage 2 Laterality: unspecified laterality Qualified Code(s): L89.502 - Pressure ulcer of unspecified ankle, stage 2 (2) Chronic suprapubic catheter Current Visit: Yes Status: Chronic (3) Chronic pain disorder Onset Date: 05/17/17 Current Visit: No Status: Chronic (4) Spina bifida Onset Date: 05/17/17 Current Visit: No Status: Chronic Qualifiers: Spinal region: lumbar (5) Depression Current Visit: Yes Status: Chronic Qualifiers: Depression Type: major depressive disorder Major depression recurrence: recurrent Active/Remission status: currently active Psychotic features: without psychotic features (6) Anemia Current Visit: Yes Status: Acute Qualifiers: Anemia type: unspecified type Qualified Code(s): D64.9 - Anemia, unspecified (7) Diabetes Current Visit: No Status: Chronic Qualifiers: Diabetes mellitus type: type 2 Diabetes 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 He stopped taking his insulin. States for 2 days, he usually underreports this. Has numerous hospitalizations here and in [facility] for this reason. He is poor for follow up. Or calling the office for diabetic supplies. Came into the ER With a cough yesterday. Found to have a sugar in the 900's States he was not taking his sugar and drinking lemonade Hospital Course: Patient was admitted for hyperglycemia due to non compliance with his ulcer. He was found to have a large scrotal and perineal pressure ulcer. Dr. Ching was consulted and the plan was for a colectomy and mild debridgement. Unfortunately the patient crashed on the operating table and was intubated. He was extubated. As Roland suffers from Spina bifida. Keeping his wounds clean is a big difficulty. We have tried to have him placed in local nursing homes and wound care centers. Unfortunately the patient wound not give his financial info for medicare. 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 He was not able to be place due to only having medicaid. We can discharge him home Have him follow up with me and Dr. Ching. Vital Signs/Physical Exam: Temp Pulse Resp BP Pulse Ox 98.4 F 111 H 18 141/95 H 92 12/04/22 16:00 12/04/22 16:00 12/04/22 16:00 12/04/22 16:00 12/04/22 08:22 General: Alert, In no apparent distress HEENT: Atraumatic, PERRLA, EOMI Neck: Supple, JVD not distended Respiratory: Clear to auscultation bilaterally, Normal air movement Cardiovascular: Regular rate/rhythm, Normal S1 S2 Gastrointestinal: Normal bowel sounds, No tenderness Musculoskeletal: No tenderness Integumentary: No rashes Neurological: Normal speech, Normal tone, Normal affect Lymphatics: No axilla or inguinal lymphadenopathy Laboratory Data at Discharge: WBC 13.90 thou/uL (4.3-10.9) H 12/04/22 06:15 Hgb 8.8 g/dL (13.6-17.9) L 12/04/22 06:15 Hct 27.7 % (39.6-49.0) L 12/04/22 06:15 Plt Count 443 thou/uL (152-406) H 12/04/22 06:15 PT 14.3 SECONDS (9.5-12.5) H 11/28/22 08:16 INR 1.30 11/28/22 08:16 APTT 26.4 SECONDS (24.3-36.9) 11/28/22 08:16 Sodium 133 mEq/L (136-145) L 12/04/22 06:15 Potassium 4.1 mEq/L (3.5-5.1) 12/04/22 06:15 BUN 13 mg/dL (7-18) 12/04/22 06:15 Creatinine 0.55 mg/dL (0.70-1.30) L 12/04/22 06:15 Glucose 125 mg/dL (74-106) H 12/04/22 06:15 Phosphorus 3.7 mg/dL (2.5-4.9) 12/04/22 06:15 Magnesium 1.8 mg/dL (1.6-2.4) 12/04/22 06:15 Total Bilirubin 0.8 mg/dL (0.2-1.0) 12/03/22 05:25 AST 18 U/L (15-37) 12/03/22 05:25 ALT 39 U/L (16-61) 12/03/22 05:25 Alkaline Phosphatase 104 U/L (45-117) 12/03/22 05:25 Home Medications: Hydromorphone [Dilaudid] 4 mg PO Q8HP PRN 09/25/21 Lisinopril [Zestril] 2.5 mg PO DAILY 08/07/22 Insulin Glargine,Hum.rec.anlog [Semglee] 45 unit SQ DAILY 08/13/22 Bupropion *Xl* [Wellbutrin XL*] 150 mg PO DAILY 90 Days #90 tab 12/05/22 New Medications: Bupropion *Xl* [Wellbutrin XL*] 150 mg PO DAILY 90 Days #90 tab Diet: ADA Activity: Ad dinorah Followup: Anjel Ching MD [ACTIVE - CAN ADMIT] - 1 Week Eren Varela MD [ACTIVE - CAN ADMIT] - 1-2 Weeks Time spent managing pt's care (in minutes): 340
[2022-12-05] MEDS: JUVEN PACKET PO SCH (08:36)
[2022-12-05] MEDS: MEDIHONEY 44 ML TOPICAL TUBE TOP SCH (08:36)
[2022-12-05] MEDS: NITROFURAN MACRO 100 MG CAP PO SCH (08:36)
[2022-12-05] MEDS: INSULIN GLARGINE 100 UNIT/ML SQ SCH (08:36)
[2022-12-05] MEDS: MUPIROCIN 2% OINT 22GM TUBE TOP SCH (08:37)
[2022-12-05] MEDS: COLLAGENASE 30 GM OINTMENT TOP SCH (08:37)
[2022-12-05 08:44] VITALS: BP 129/78; TEMP 97.3; O2SAT 90
[2022-12-05] MEDS: PROMETHAZINE INJ 25 MG/ML AMP IV PRN (09:56)
[2022-12-05 10:04] LABS: Potassium 4.2 mEq/L (3.5-5.1)
== END 2022-12-05 11:30 | disposition home or self-care (01) | DRG 628 ==
LOC: ER 14:25 → ERHOLD 19:51 → 3RD-ICU 20:24 → 2ND 11-17 00:15 → 3RD-ICU 11-27 16:31 → 4TH 12-02 21:00
PROVIDERS: ADMIT Internal Medicine; ATTEND Emergency Medicine
PROC: 02HV33Z Insertion of Infusion Device into Superior Vena Cava, Percutaneous Approach (ICD-10-PCS; 2022-11-20)
PROC: 30233N1 Transfusion of Nonautologous Red Blood Cells into Peripheral Vein, Percutaneous Approach (ICD-10-PCS; 2022-11-23)
PROC: 0DN80ZZ Release Small Intestine, Open Approach (ICD-10-PCS; 2022-11-27)
PROC: 0DNE0ZZ Release Large Intestine, Open Approach (ICD-10-PCS; 2022-11-27)
PROC: 5A1945Z Respiratory Ventilation, 24-96 Consecutive Hours (ICD-10-PCS; 2022-11-27)
PROC: 0BH17EZ Insertion of Endotracheal Airway into Trachea, Via Natural or Artificial Opening (ICD-10-PCS; 2022-11-27)
PROC: 3E0336Z Introduction of Nutritional Substance into Peripheral Vein, Percutaneous Approach (ICD-10-PCS; 2022-11-27)
PROC: 0WJG0ZZ Inspection of Peritoneal Cavity, Open Approach (ICD-10-PCS; principal; 2022-11-27 12:15)
PROC: 0DNU0ZZ Release Omentum, Open Approach (ICD-10-PCS; 2022-11-27 12:15)
DX: E11.00 Type 2 diabetes mellitus with hyperosmolarity without nonketotic hyperglycemic-hyperosmolar coma (NKHHC) (principal); J96.90 Respiratory failure, unspecified, unspecified whether with hypoxia or hypercapnia; R57.8 Other shock; T83.510A Infection and inflammatory reaction due to cystostomy catheter, initial encounter; Z68.43 Body mass index [BMI] 50.0-59.9, adult; F33.9 Major depressive disorder, recurrent, unspecified; N30.90 Cystitis, unspecified without hematuria; E66.01 Morbid (severe) obesity due to excess calories; I10 Essential (primary) hypertension; K21.9 Gastro-esophageal reflux disease without esophagitis; Q05.9 Spina bifida, unspecified; N50.9 Disorder of male genital organs, unspecified; D64.9 Anemia, unspecified; J45.909 Unspecified asthma, uncomplicated; N32.89 Other specified disorders of bladder; G89.4 Chronic pain syndrome; L89.899 Pressure ulcer of other site, unspecified stage; E11.621 Type 2 diabetes mellitus with foot ulcer; F17.200 Nicotine dependence, unspecified, uncomplicated; L97.509 Non-pressure chronic ulcer of other part of unspecified foot with unspecified severity; T38.3X6A Underdosing of insulin and oral hypoglycemic [antidiabetic] drugs, initial encounter; R15.1 Fecal smearing; R15.9 Full incontinence of feces; Z88.1 Allergy status to other antibiotic agents; Z88.0 Allergy status to penicillin; Z88.5 Allergy status to narcotic agent; Z88.8 Allergy status to other drugs, medicaments and biological substances; Z99.3 Dependence on wheelchair; Z78.1 Physical restraint status; Z79.4 Long term (current) use of insulin; Z53.31 Laparoscopic surgical procedure converted to open procedure; Z90.49 Acquired absence of other specified parts of digestive tract; Z91.51 Personal history of suicidal behavior; Z91.148 Patient's other noncompliance with medication regimen for other reason; Z91.128 Patient's intentional underdosing of medication regimen for other reason; Z79.899 Other long term (current) drug therapy; Y84.8 Other medical procedures as the cause of abnormal reaction of the patient, or of later complication, without mention of misadventure at the time of the procedure
CPT/HCPCS: 36415; 36430; 71045; 71275; 74176; 80048; 80053; 81001; 82271; 82533; 82805; 82947; 83605; 83735; 83880; 83986; 84100; 84484; 85014; 85018; 85025; 85379; 85384; 85610; 85730; 86850; 86900; 86901; 86920; 87040; 87077; 87086; 87088; 87186; 93005; 93306; 93970; 94002; 94003; 94010; 94760; 96374; 96375; 99285; C9113; J0171; J0461; J0696; J0878; J1170; J1650; J1720; J1815; J2001; J2185; J2250; J2370; J2405; J2543; J2550; J2704; J2710; J2997; J3010; J3475; J3590; J7030; J7040; J7050; J7060; J7120; J7613; P9016; P9045; P9047; Q9967

== ENCOUNTER 2022-12-06 11:55 | Emergency (ER) | payer OTHER ==
[2022-12-06] MEDS ORDERED: CEFTRIAXONE 1000 MG/VIAL ONE (12:21)
[2022-12-06] MEDS ORDERED: NA CHLORIDE 0.9% 1,000 ML ONE (12:21)
[2022-12-06] MEDS ORDERED: ONDANSETRON 4 MG/2 ML VIAL ONE (12:21)
[2022-12-06 12:42] LABS: Specific Gravity 1.016 (1.005-1.030); Urine Bacteria >50 /HPF (<20); Urine Bilirubin 1+ (Negative); Urine Blood 2+ (Negative); Urine Clarity Turbid (Clear); Urine Color Orange (Yellow); Urine Glucose NEGATIVE (Negative); Urine Mucus Slight /HPF (None Seen); Urine Protein 1+ (Negative); Urine RBC 21-50 /HPF (None Seen); Urine Urobilinogen 2+ (Normal); Urine WBC Clump Occasional /HPF (None Seen); Urine pH 5.5 (5.0-7.0)
--- OUTSIDE RECORDS SUMMARY | 2022-12-06 13:05 | XMS REPORT | Continuity of Care Document ---
:1985 Author Organization [facility] t Address [address] [facility] [address] [place] [address] Support Name Relationship Address Phone LAMAR NGUYEN [address] [place] [address] LAN NGUYENISTA [place] [address] [place] [address] one else per patient, No Unavailable Unavailable Unavail able GastonLanLamar Mother [address] [place] [address] PATIENT, NO ONE ELSE PER Unavailable Unavailable Unavail able PHYILLIS Grandparent Unavailable Unavailable GASTONLANLAMAR DENISSE M [address] [place] [address] Lamar Linares Mother [address] [phone] [place] [id number] HOSSEIN, LISA Grandparent Unavailable KAREN NGUYEN F [address] Unavailable [place] [id number] O'GALDINO, LISA NOEMÍ Grandparent [address] Unavailable [place] [address] Noemí O'Galdino, Lisa Grandparent [address] [place] [id number] Karen Nguyen Sr. Father [address] [phone] [place] [address] Karen Nguyen Unavailable [address] [facility] [phone] [place] [address] Lana Nguyen Unavailable Unavailable [phone] Karen Nguyen Jro Unavailable [address] [place] [address] Care Team Providers Name Role Phone Sharpless Primary Care Physician Eren Varela Attending Clinician Unavailable ALHAJI INMAN Attending Clinician Unavailable [facility], Ursula Herrera Attending Clinician Unavailable SUZANNE BLANKENSHIP Attending Clinician Unavailable Suzanne Blankenship MD Attending Clinician Yudi Holloway MD Attending Clinician Doctor Unassigned, [place] Attending Clinician Unavailable YUDI HOLLOWAY Attending Clinician Unavailable JENNIFER OLIVERA Attending Clinician Unavailable Jennifer Olivera MD Attending Clinician Alhaji Inman MD Attending Clinician LYNETTE FONSECA Attending Clinician Unavailable Lynette Fonseca NP Attending Clinician Nurse, [facility] Surgery Gu Attending Clinician Unavailable MADONNA HELMS Attending Clinician Unavailable Madonna Preciado Attending Clinician Kamila Zepeda LVN Attending Clinician AB WOLFF Attending Clinician Unavailable AB WOLFF Attending Clinician Unavailable Diomedes Lester Attending Clinician Dontae Talley MD Attending Clinician Ann Horan Attending Clinician Mejia Villavicencio MD Attending Clinician Randall Valenzuela Attending Clinician Unavailable Gasper Hercules MD Attending Clinician [phone] JONATHAN SANFORD Attending Clinician Unavailable Jonathan Sanford DO Attending Clinician Lisbeth Carter RN Attending Clinician SUSAN ADHIKARI Attending Clinician Unavailable Susan Adhikari DO Attending Clinician COURTNEY MENDES Attending Clinician Unavailable Courtney Mendes MD Attending Clinician Lab, Ang - Db Attending Clinician Unavailable NEGAR GUARDADO Attending Clinician Unavailable Negar Guardado DO Attending Clinician STEPHANIE BALDERRAMA Attending Clinician Unavailable Jamal PARTS REMOVER, Stephanie Quiles Attending Clinician CARMELITA SERNA Attending [...] Clinician Edwardo NUNO, Royer Suárez Attending Clinician [phone] Michelle NUNO, Bret Burton Attending Clinician Mayank NUNO, Adonis G Attending Clinician Victorino Conroy MD Attending Clinician Heide Abraham MD Attending Clinician Francisco NUNO, Huy Johnson Attending Clinician Beverly PEREA, Sarah Beth A Attending Clinician [phone] KENDALL CONNOLLY Attending Clinician Unavailable Carlene Montgomery [...] Date Expiration Date S samir [employer] [place] [id number] 2020 PLUS 00:00:00 [employer] [place] [id number] 2022 00:00:00 [facility] [id number] Common (Medicaid[facility] [id number] Common (Medicaid) [facility] [employer] [id number] Common (Medicaid) [facility] [id number] Common (Medicaid) [facility] [id number] Common (Medicaid) [facility] Problems Condition Condition Condition Status Onset Resolution Last Treating Co mments Source Name Details Category Date Date Treatment Clinician Date Hyperglyce Hyperglyce Disease Active U nivers pedro due to pedro due to 2-21 it y of diabetes diabetes 00:00: [place] mellitus mellitus 00 Medica l Branch Weakness Weakness Disease Active Unive rs 2-01 ity of 00:00: [place] 00 Medical Branch Lactic Lactic Disease Active 2021-07 Univers acidosis acidosis 1-06 ity of 00:00: [place] 00 Medical Branch Nausea and Nausea and Disease Active 2021-07 U nivers vomiting, vomiting, 0-21 ity of unspecifie [place] d vomiting 00 Me dical type type Branch Chest pain Chest pain Disease Active U nivers 8-04 ity of 00:00: [place] 00 Medical Branch Foot ulcer Foot ulcer Disease Active Overview : Univers with fat with fat 8 Formattin ity of layer layer 00:00: g of this [place] exposed, exposed, 00 note Medica l left left might be Branch different from the original. Added automatic ally from request for surgery [id number] Right foot Right foot Disease Active Overview : Univers ulcer, ulcer, 02-14 Formattin ity of with fat with fat 00:00: g of this Tim as layer layer 00 note Medical exposed exposed might be Branch different from the original. Added automatic ally from request for surgery [id number] Diabetic Diabetic Disease Active Unive rs ketoacidos [...] of 6-05 ity of heel, heel, 00:00: [place] left, left, 00 Medical unstageabl unstageabl Br anch e e Decubitus Decubitus Disease Active Uni vers ulcer of ulcer of 6-05 ity of heel, heel, 00:00: [place] left, left, 00 Medical unstageabl unstageabl Br anch e e Diabetic Diabetic Disease Active Unive rs ketoacidos ketoacidos 6-05 it y of is without is without [place] coma coma 00 Medical associated associated Br anch with type with type 2 diabetes 2 diabetes mellitus mellitus Decubitus Decubitus Disease Active Uni vers ulcer of ulcer of 6-05 ity of heel, heel, 00:00: [place] left, left, 00 Medical unstageabl unstageabl Br anch e e Pyuria Pyuria Disease Active Univers 6-05 ity of 00:00: [place] 00 Medical Branch Chronic Chronic Disease Active Univers suprapubic suprapubic 6- it y of catheter catheter 00:00: Medical Branch Uncontroll Uncontroll Disease Active U braulio ed ed 6 ity of diabetes diabetes 00:00: [place] mellitus mellitus 00 Medica l with with Branch complicati complicati ons ons Spina Spina Disease Recurre Univers bifida bifida nce 6-03 ity of 00:00: [place] [address] Medical Branch Wound Wound Disease Active Univers infection infection 5-11 ity of 00:00: [place] [address] Medical Branch Chills Chills Disease Active Univers 5-11 ity of 00:00: [place] [address] Medical Branch POSSIBLE POSSIBLE Diagnosis Active 2021-11-01 Memoria ALTO SINGER SHUNT ALTO SINGER SHUNT 10-20 21:48:00 l MALFUNCTIO MALFUNCTIO 00:00: He samanthaann N N Active 00 10/20/2021 [facility] ALTO SINGER SHUNT ALTO SINGER SHUNT Diagnosis Active 2021-10-11 Memoria MALFUNCTIO MALFUNCTIO 10-06 14:12:00 l N N Active 00:00: Jason 10/06/2021 [facility] ALTO SINGER SHUNT ALTO SINGER SHUNT Diagnosis Active 2021-10-05 Memoria MALFUCTION MALFUCTION 10-05 23:59:00 l Active 00:00: Jason 10/05/2021 00 [facility] Complicate Complicate Disease Active U nivers d urinary d urinary 1-20 ity of tract tract 00:00: [place] infection infection 00 [facility] Branch Hyperglyce Hyperglyce Disease Active [facility] pedro pedro 1-07 [facility] without without 00:00: Medical ketosis ketosis 00 Center HEADACHE HEADACHE Diagnosis Active 2017-072018-05-27 Memoria Active 07-22 22:05:00 l 05/22/2018 00:00: [facility] [address] SHUNT SHUNT Diagnosis Active 2017-11-14 Mem oria MALFUNCTIO MALFUNCTIO 11-14 20:00:00 l N N Active 00:00: Jason 11/14/2017 00 [facility] ACUTE ACUTE Diagnosis Active 2017-11-20 Me moria HEADACHE HEADACHE 11-14 09:20:00 l Active 00:00: Jason 11/14/2017 [facility] Spina Spina Disease Recurre [facility] bif[facility] bifida nce 6[facility]12 [facility] 00:00: Medical 00 Center Pyelonephr Pyelonephr Disease Active C [facility] itis itis 6-11 [facility] 00:00: Medical [address] [place] [address] Morbid Morbid Disease Active Univers obesity obesity 1-04 ity of with body with body 00:[place] mass index mass index 00 Me dical of of Branch 40.0-49.9 40.0-49.9 Spina Spina Problem 2018-12-09 Memor ia bifida, bifida, 14:14:02 l unspecifie unspecifie He rmann d d 12/09/2018 [facility] Nausea Nausea Problem 2018-12-09 Erwin benjamin with with 14:14:02 l vomiting, vomiting, Herm philip unspecifie unspecifie d d 12/09/2018 [facility] Diplopia Diplopia Problem 2018-12-09 Memoria 12/09/2018 14:14:02 l [facility] Cerebral Cerebral Problem 2018-12-09 Memoria palsy, palsy, 14:14:02 l unspecifie unspecifie He rmann d d 12/09/2018 [facility] Acquired 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-09 Memoria absence of absence of 14:14:02 l other other [place] specified specified parts of parts of digestive digestive tract tract 12/09/2018 [facility] Nicotine Nicotine Problem 2018-12-09 Memoria dependence dependence 14:14:02 l , , [place] cigarettes cigarettes , , uncomplica uncomplica lester lester 12/09/2018 [facility] Presence Presence Problem 2018-12-09 Memoria of of 14:14:02 l cerebrospi cerebrospi He rmann nal fluid nal fluid drainage drainage device device 12/09/2018 [facility] Allergy Allergy Problem 2018-12-09 Me moria status to status to 14:14:02 l other other [place] antibiotic antibiotic agents agents status status 12/09/2018 [facility] Allergy Allergy Problem 2018-12-09 Me moria status to status to 14:14:02 l other other [place] drugs, drugs, medicament medicament s and s and biological biological substances substances status status 12/09/2018 [facility] Allergy Allergy Problem 2018-12-09 Me moria status to status to 14:14:02 l narcotic narcotic Christian n agent agent status status 12/09/2018 [facility] Asthma Asthma Problem Resolve 2021-10-27 Mem oria (disorder) (disorder) d 23:48:47 l Resolved [place] Problem 10/27/2021 [facility] Bronchitis Bronchiti Problem Resolve 2021-10-27 Memoria (disorder) s d 23:48:47 l (disorder) Christian n Resolved Problem 10/27/2021 [facility] 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-27 Memoria palsy palsy d 23:48:47 l (disorder) (disorder) He rmann Resolved Problem 10/27/2021 [facility] Hydrocepha Hydroceph Problem Resolve 2021-10-27 Memoria bam alus d 23:48:47 l (disorder) (disorder) He rmann Resolved Problem 10/27/2021 [facility] Osteomyeli Osteomyel Problem Resolve 2021-10-27 Memoria tis itis d 23:48:47 l (disorder) (disorder) He rmann Resolved Problem 10/27/2021 [facility] Acute pain Acute Problem Active 2021-10-27 M emoria (finding) pain 23:48:47 l (finding) [place] Active Problem 10/27/2021 [facility] Morbid Morbid Problem Active 2021-10-27 Erwin benjamin obesity obesity 23:48:47 l (disorder) (disorder) He rmann Active Problem 10/27/2021 [facility] Providenci Providenc Problem Active 2021-10-27 Memoria a ia 23:48:47 l (organism) (organism) He rmann Active Problem 10/27/2021 Problem added by Discern Expert. [facility] Lumbar Problem Active Common [facility] Problem Active Commo n on Spirit wheelchair - [facility] Paraplegia Problem Active Commo n Spirit - [facility] Constipati Problem Active Commo n on Spirit - [facility] Incontinen Problem Active Commo n ce of Spirit urine - [facility] Nausea Problem Active Common [facility] Mixed Problem Active Common anxiety Spirit and - [facility] depressive [facility] [id number] Problem Active [facility] Bowel Problem Active Common incontinen Spirit ce [facility] [id number] Problem Active Common [facility] [id number] Problem Active Common Spirit [facility] [id number] Problem Active Common [facility] [id number] Problem Active Commo n [id number] [facility] Foot ulcer Problem Active Commo n [facility] Myelocele Problem Active Common with Spirit hydrocepha - [facility] [id number] Problem Active [facility] [id number] Problem Active Common Spirit [facility] Nicotine Problem Active Common dependence [facility] [id number] Problem Active Common [facility] [id number] Problem Active Common [facility] [id number] Problem Active Common [facility] [id number] Problem Active Common [facility] History of Past Illness Condition Condition Condition Status Onset Resolution Last Treating Co mments Source Name Details Category Date Date Treatment Clinician Date Headache Headache Problem 2017-072018-12-09 2018-12-09 Memoria 05/22/201807-22 14:14:02 14:14:02 l 12/09/2018 06:00: [facility] [address] Allergies, Adverse Reactions, Alerts Allergy Allergy Status Severity Reaction(s) Onset Inactive Treating Comm ents Source Name Type Date Date Clinician Amoxicil Propensi Active Hives Univer s jocelyn ty to 7 ity of adverse 00:00: [place] reaction 00 [facility] AMOXICIL DRUG Active Hives Univers JOCELYN INGREDI 7 ity of 00:00: [place] 00 [facility] Metoclop Propensi Active Nausea 2016-07 Univer s ramide ty to and/or 2-20 ity of Hcl adverse Vomiting 00:00: [place] reaction 00 [facility] METOCLOP DRUG Active N/V 2016-07 Univers RAMIDE INGREDI 2-20 ity of HCL 00:00: [place] 00 [facility] SESAME DRUG Active Hives Univers SEED INGREDI 6-11 ity of 00:00: [place] 00 [facility] Sesame Propensi Active Hives Univers Seed ty to 6-11 ity of adverse 00:00: [place] reaction 00 Medical s Branch Sulfamet Propensi Active Hives 2017-0 [facility] [...] Active Hives 2017-[address] [facility] [facility] adverse 00:00: Medical reaction 00 Center s ONDANSET Allergy Active N\\T\\V 2016- [facility] KUMAR HCL 6-11 [facility] (PF) 00:00: Medical 00 Center Ketorola Propensi Active Rash 2017- [facility] ty to [facility] adverse 00:00: Medical reaction 00 Center s Vancomyc Propensi Active Rash 2017- [facility] to [facility] Analogue adverse 00:00: Medical s reaction 00 Center s Ondanset Propensi Active Nausea And 2017-[address] kumar Hcl ty to Vomiting 6-11 [facility] (Pf) adverse 00:00: Medical reaction 00 Center s Sulfa Propensi Active Other - See 2017- Uni vers (Sulfona ty to comments 1-04 [...] C INGREDI 5-23 ity of TROMETHA 00:00: [facility] 00 Medical Branch morphine Drug Active Common allergy [facility] ondanset Drug Active Common kumar allergy [facility] [id number] Drug Active Common allergy [facility] amoxicil amoxicil Active Memori a jocelyn jocelyn l Jason morphine morphine Active Memori a l Jason Toradol Toradol Active Memoria l [place] Minocin Minocin Active Memoria l Jason Zofran Zofran Active Memoria l Jsaon Levaquin Levaquin Active Memori a l Jason Bactrim Bactrim Active Memoria l Jason Reglan Reglan Active Memoria l Jason Family History Family Member Diagnosis Comments Start Date Stop Date Source Natural father Diabetes [facility] Natural mother No Significant [facility] Problems Medical Branch Social History Social Habit Start Date Stop Date Quantity Comments Source History of tobacco Cigarette Smoker [facility] Medical Branch History SDOH Social Unive rsity of Connections [facility] Med ical Together Branch History SDOH Social Unive rsity of Connections [facility] Medical Branch History SDOH Social Unive rsity of Connections [place] Medical Membership Branch History SDOH Social Unive rsity of Connections [place] Medical Meetings Branch Sex Assigned At Common Sp esthel[facility] Exposure to 2022-10-30 2022-11-09 Not sure University of SARS-CoV-2 (event) 00:00:00 14:24:00 [facility] Branch Alcohol intake 2022-11-09 2022-11-09 Current drinker Unive rsity of 00:00:00 00:00:00 of alcohol [place] Medical (finding) Branch History SDOH 2022-09-04 2022-09-04 1 University o f Alcohol Frequency 00:00:00 00:00:00 [place] M edical Branch History SDOH 2022-09-04 2022-09-04 0 University o f Alcohol Std Drinks 00:00:00 00:00:00 [place] Medical Branch History SDOH 2022-09-04 2022-09-04 1 University o f Alcohol Binge 00:00:00 00:00:00 [place] Medic al Branch History SDOH Social 2022-09-04 2022-09-04 4 Unive rsity of Connections Phone 00:00:00 00:00:00 [place] M edical Branch History SDOH Social 2022-09-04 2022-09-04 7 Unive rsity of Connections Living 00:00:00 00:00:00 [place] Medical Branch History SDOH 2022-09-04 2022-09-04 0 University o f Physical Activity 00:00:00 00:00:00 [facility] edical DPW Branch History SDOH 2022-09-04 2022-09-04 0 University o f Physical Activity 00:00:00 00:00:00 [facility] edical MPS Branch History SDOH 2022-09-04 2022-09-04 5 University o f Financial 00:00:00 00:00:00 [place] Medical Branch History SDOH Food 2022-09-04 2022-09-04 1 Univers ity of Scarcity 00:00:00 00:00:00 [place] Medical Branch History SDOH 2022-09-04 2022-09-04 2 University o f Transport Med 00:00:00 00:00:00 [place] Medic al Branch History SDNJ 2022-09-04 2022-09-04 2 University o f Transport Non-Med 00:00:00 00:00:00 [facility] edical Branch History SDNJ Food 2022-08-16 2022-08-16 1 Univers ity of Worry 00:00:00 00:00:00 [facility] Education 2022-05-20 2022-05-20 21 University of 00:00:00 00:00:00 [facility] Tobacco use and 2022-05-04 2022-05-04 Smokeless Universit y of exposure 00:00:00 00:00:00 tobacco non-user [facility] dical Branch Alcohol Comment 2022-02-15 2022-02-15 once a year Universi ty of 00:00:00 00:00:00 [facility] Social History 2021-10-06 2021-10-06 [facility] kristie 05:57:00 05:57:00 Cigarettes smoked 2016-12-23 2016-12-[address] [facility] current (pack per 00:00:00 00:00:00 Medical Center day) - Reported Smoking Status Start Date Stop Date Source Social History 2018-05-22 11:26:10 [facility] Medications Ordered Filled Start Stop Current Ordering Indication Dosage Frequency Signature Comments Components Source Medication Medication Date Date Medication? Clinician (SIG) Name Name Blood-Gluco 2022-0 Yes Use as Univ ers se Meter 5-04 directed ity of (TRUE 00:00: to check [place] METRIX 00 blood Medical GLUCOSE sugars Branch METER) Misc twice daily for DX E11.65 blood sugar 2022-0 Yes Use as Univ ers diagnostic 5-04 directed ity o f (TRUE 00:00: to check [place] METRIX 00 blood Medical GLUCOSE sugars Branch TEST STRIP) twice strip daily DX E11.65 lancets 0 Yes Use as Univers (TRUEPLUS 5-04 directed ity of LANCETS) 30 00:00[place] gauge Misc 00 blood Medical sugars DX Branch E11.65 Blood-Gluco 2022-0 Yes Use as Univ ers se Meter 5-04 directed ity of (TRUE 00:00: to check [place] METRIX 00 blood Medical GLUCOSE sugars Branch METER) Misc twice daily for DX E11.65 blood sugar 2022-0 Yes Use as Univ ers diagnostic -04 directed ity o f (TRUE 00:00: to check [place] METRIX 00 blood Medical GLUCOSE sugars Branch TEST STRIP) twice strip daily DX E11.65 lancets 0 Yes Use as Univers (TRUEPLUS -04 directed ity of LANCETS) 30 00:00: [place] gauge Misc 00 blood Medical sugars DX Branch E11.65 Blood-Gluco 2022-0 Yes Use as Univ ers se Meter -04 directed ity of (TRUE 00:00: to check [place] METRIX 00 blood Medical GLUCOSE sugars Branch METER) Misc twice daily for DX E11.65 blood sugar 2022-0 Yes Use as Univ ers diagnostic 5-04 directed ity o f (TRUE 00:00: to check [place] METRIX 00 blood Medical GLUCOSE sugars Branch TEST STRIP) twice strip daily DX E11.65 lancets 2022-0 Yes Use as Univers (TRUEPLUS 5-04 directed ity of LANCETS) 30 00:00: [place] gauge Misc 00 blood Medical sugars DX Branch E11.65 Blood-Gluco 2022-0 Yes Use as Univ ers se Meter 5-04 directed ity of (TRUE 00:00: to check [place] METRIX 00 blood Medical GLUCOSE sugars Branch METER) Misc twice daily for DX E11.65 blood sugar 2022-0 Yes Use as Univ ers diagnostic 5-04 directed ity o f (TRUE 00:00: to check [place] METRIX 00 blood Medical GLUCOSE sugars Branch TEST STRIP) twice strip daily DX E11.65 lancets Yes Use as Univers (TRUEPLUS 11-15 directed ity of LANCETS) 30 00:00: [place] gauge Misc 00 blood Medical sugars DX Branch E11.65 Blood-Gluco Yes Use as Univ ers se Meter 11-15 directed ity of (TRUE 00:00: to check [place] METRIX 00 blood Medical GLUCOSE sugars Branch METER) Misc twice daily for DX E11.65 blood sugar Yes Use as Univ ers diagnostic 11-15 directed ity o f (TRUE 00:00: to check [place] METRIX 00 blood Medical GLUCOSE sugars Branch TEST STRIP) twice strip daily DX E11.65 lancets Yes Use as Univers (TRUEPLUS 11-15 directed ity of LANCETS) 30 00:00: [place] gauge Misc 00 blood Medical sugars DX Branch E11.65 FENTanyl PF 2022- No 12.5ug 12.5 mcg, Univers (SUBLIMAZE 11-09 Slow IV ity o f (PF)) 23:15: 23:38 Push, [place] injection 00 :00 ONCE, 1 Medical 12.5 [...] sugar Yes Use as Univ ers diagnostic 11-06 directed ity o f (ONETOUCH 00:00: [place] VERIO TEST 00 Medical STRIPS) Branch strip insulin 2023-0 Yes 60U inject 60 Unive rs lispro, [...] TEST 00 Medical STRIPS) Branch strip insulin 0 Yes 60U inject 60 Unive rs lispro, 4-25 Units ity of human, 00:00: under the [place] (HUMALOG 00 skin in Medical U-100 the Branch INSULIN) morning 100 unit/mL and 60 injection Units in the evening. inject with meals. insulin Yes 60U inject 60 Unive rs lispro, 4-25 Units ity of human, 00:00: under the [place] (HUMALOG 00 skin in Medical U-100 the Branch INSULIN) morning 100 unit/mL and 60 injection Units in the evening. inject with meals. insulin Yes 60U inject 60 Unive rs lispro, 4-25 Units ity of human, 00:00: under the [place] (HUMALOG 00 skin in Medical U-100 the Branch INSULIN) morning 100 unit/mL and 60 injection Units in the evening. inject with meals. insulin Yes 60U inject 60 Unive rs lispro, 4-25 Units ity of human, 00:00: under the [place] (HUMALOG 00 skin in Medical U-100 the Branch INSULIN) morning 100 unit/mL and 60 injection Units in the evening. inject with meals. insulin Yes 60U inject 60 Unive rs lispro, 4-25 Units ity of human, 00:00: under the [place] (HUMALOG 00 skin in Medical U-100 the Branch INSULIN) morning 100 unit/mL and 60 injection Units in the evening. inject with meals. insulin Yes 60U inject 60 Unive rs lispro, 4-25 Units ity of human, 00:00: under the [place] (HUMALOG 00 skin in Medical U-100 the [...] semaglutide 2022- Yes inject Uni vers (OZEMPIC) -05 02-19 0.25 mg ity of 0.25 mg or 00:00: 04:59 under the [place] 0.5 mg (2 00 :00 skin Medical mg/3 mL) weekly for Branc h PnIj 28 days, THEN 0.5 mg weekly for 56 days. semaglutide 2022- Yes inject Uni vers (OZEMPIC) -05 02-19 0.25 mg ity of 0.25 mg or 00:00: 04:59 under the [place] 0.5 mg (2 00 :00 skin Medical mg/3 mL) weekly for Branc h PnIj 28 days, THEN 0.5 mg weekly for 56 days. semaglutide 2022- Yes inject Uni vers (OZEMPIC) 11-06 07-19 0.25 mg ity of 0.25 mg or 00:00: 04:59 under the [place] 0.5 mg (2 00 :00 skin Medical mg/3 mL) weekly for Branc h PnIj 28 days, THEN 0.5 mg weekly for 56 days. blood sugar 2022- No Use as Uni vers diagnostic 11-06 05-04 directed ity of (ONETOUCH 00:00: 00:00 [place] VERIO TEST 00 :00 Medical STRIPS) Branch strip insulin NPH 2022- No 45U inject 45 [facility] human 4-20 04-20 Units ity of isophane 20:12: 00:00 under the [place] (NOVOLIN N 01 :00 skin 2 Medical SC) (two) Branch times daily. insulin NPH 0 Yes [id number] 60U inject 60 [facility] 100 unit/mL 4-20 Units ity of injection 00:00: under the [place] 00 skin every Medical morning Branch and evening. insulin NPH 2022-0 Yes [id number] 60U inject 60 [facility] 100 unit/mL 4-20 Units ity of injection 00:00: under the [place] 00 skin every Medical morning Branch and evening. insulin NPH 2022-0 Yes [id number] 60U inject 60 [facility] 100 unit/mL 4-20 Units ity of injection 00:00: under the [place] 00 skin every Medical morning Branch and evening. insulin NPH 0 Yes [id number] 60U inject 60 [facility] 100 unit/mL 4-20 Units ity of injection 00:00: under the [place] 00 skin every Medical morning Branch and evening. insulin NPH 2022-0 Yes [id number] 60U inject 60 [facility] 100 unit/mL 4-20 Units ity of injection 00:00: under the [place] 00 skin every Medical morning Branch and evening. insulin NPH 2022-0 Yes [id number] 60U inject 60 [facility] 100 unit/mL 4-20 Units ity of injection 00:00: under the [place] 00 skin every Medical morning Branch and evening. insulin NPH 2022-0 Yes [id number] 60U inject 60 [facility] 100 unit/mL 4-20 Units ity of injection 00:00: under the [place] 00 skin every Medical morning Branch and evening. insulin NPH 2022-0 Yes [id number] 60U inject 60 [facility] 100 unit/mL 4-20 Units ity of injection 00:00: under the [place] 00 skin every Medical morning Branch and evening. insulin NPH 2022-0 Yes [id number] 60U inject 60 [facility] 100 unit/mL 4-20 Units ity of injection 00:00: under the [place] 00 skin every Medical morning Branch and evening. insulin NPH 2022-0 Yes [id number] 60U inject 60 [facility] 100 unit/mL 4-20 Units ity of injection 00:00: under the [place] 00 skin every Medical morning Branch and evening. insulin NPH 2022-0 Yes [id number] 60U inject 60 [facility] 100 unit/mL 4-20 Units ity of injection 00:00: under the [place] 00 skin every Medical morning Branch and evening. insulin NPH 2022-0 Yes [id number] 60U inject 60 [facility] 100 unit/mL 4-20 [...] Slow IV ity of human 23:15: 22:41 Bud, Radha (HUMULIN R) 00 :00 ONCE, 1 Medic al injection 6 dose, On Bran ch Units 10/31/22 at 1815, STAT
In dication for [...] dose, On Sat10/31/22 at 1645, STAT cephALEXin 3-0 Yes [id number] 500mg Take 1 Univers (KEFLEX) 4-19 capsule by ity o f 500 mg 00:00: mouth 4 [place] capsule 00 (four) Medical times Branch daily. cephALEXin 2023-0 Yes [id number] 500mg Take 1 Univers (KEFLEX) 4-19 capsule by ity o f 500 mg 00:00: mouth 4 [place] capsule 00 (four) Medical times Branch daily. cephALEXin 2023-0 Yes [id number] 500mg Take 1 Univers (KEFLEX) 4-19 capsule by ity o f 500 mg 00:00: mouth 4 [place] capsule 00 (four) Medical times Branch daily. cephALEXin 2023-0 Yes [id number] 500mg Take 1 Univers (KEFLEX) 4-19 capsule by ity o f 500 mg 00:00: mouth 4 [place] capsule 00 (four) Medical times Branch daily. cephALEXin 2023-0 Yes [id number] 500mg Take 1 Univers (KEFLEX) 4-19 capsule by ity o f 500 mg 00:00: mouth 4 [place] capsule 00 (four) Medical times Branch daily. cephALEXin 2023-0 Yes [id number] 500mg Take 1 Univers (KEFLEX) 4-19 capsule by ity o f 500 mg 00:00: mouth 4 [place] capsule 00 (four) Medical times Branch daily. cephALEXin 2023-0 Yes [id number] 500mg Take 1 Univers (KEFLEX) 4-19 capsule by ity o f 500 mg 00:00: mouth 4 [place] capsule 00 (four) Medical times Branch daily. cephALEXin 2023-0 Yes [id number] 500mg Take 1 Univers (KEFLEX) 4-19 capsule by ity o f 500 mg 00:00: mouth 4 [place] capsule 00 (four) Medical times Branch daily. cephALEXin 2023-0 Yes [id number] 500mg Take 1 Univers (KEFLEX) 4-19 capsule by ity o f 500 mg 00:00: mouth 4 [place] capsule 00 (four) Medical times Branch daily. cephALEXin 2023-0 Yes [id number] 500mg Take 1 Univers (KEFLEX) 4-19 capsule by ity o f 500 mg 00:00: mouth 4 [place] capsule 00 (four) Medical times Branch daily. cephALEXin 2023-0 Yes [id number] 500mg Take 1 Univers (KEFLEX) 4-19 capsule by ity o f 500 mg 00:00: mouth 4 [place] capsule 00 (four) Medical times Branch daily. cephALEXin 2023-0 Yes [id number] 500mg Take 1 Univers (KEFLEX) 4-19 capsule by ity o f 500 mg 00:00: mouth 4 [place] capsule 00 (four) Medical times Branch daily. cephALEXin 2023-0 Yes [id number] 500mg Take 1 Univers (KEFLEX) 4-19 capsule by ity o f 500 mg 00:00: mouth 4 [place] capsule 00 (four) Medical times Branch daily. cefpodoxime 2023-0 Yes 200mg Take 1 Uni vers 200 mg 4-16 tablet by ity of tablet 00:00: mouth in [place] the Medical morning Branch and 1 tablet in the evening. cefpodoxime 2023-0 Yes 200mg Take 1 Uni vers 200 mg 4-16 tablet by ity of tablet 00:00: mouth in [place] the Medical morning Branch and 1 tablet in the evening. cefpodoxime 2023-0 Yes 200mg Take 1 Uni vers 200 mg 4-16 tablet by ity of tablet 00:00: mouth in [place] the Medical morning Branch and 1 tablet in the evening. cefpodoxime 2023-0 Yes 200mg Take 1 Uni vers 200 mg 4-16 tablet by ity of tablet 00:00: mouth in [place] the Medical morning Branch and 1 tablet in the evening. FENTanyl PF 2023-0 2023- No 50ug 50 mcg, Un ela (SUBLIMAZE 10-22- Slow IV ity o f (PF)) 02:15: 02:39 Push, [place] injection 00 :00 ONCE, 1 Medical 50 mcg dose, On Branch [place] 10/21/22 at 2115, Routine insulin 2022- No 14U 14 Units, Univ ers regular 10-22-10 Subcutaneo ity o f human 01:30: 00:59 us, ONCE, [place] (HUMULIN R) 00 :00 1 dose, On Me dical injection [place] 10/21/22 Bran ch 14 Units at 2030, Routine
Indicatio n for insulin: Hyperglyce pedro cefTRIAXone 2022- No 1000mg 1,000 mg, Univers (ROCEPHIN) 10-22 IV ity of 1,000 mg in 01:00: 01:31 Piggyback, [place] NaCl 0.9% 00 :00 ONCE, 1 Medical (NS) 100 mL dose, On Bran ch MINI-BAG [place] 10/21/22 at 2000, Administer over 30 Minutes, 100 mL
Reas on for Anti-Infec tive: Documented Infection< br>Documen lester Infection Site: Urine<br&g t;Duration of Therapy: 7 days NaCl 0.9% 2022-0 2022- No 500mL at 999 [facility] ers (NS) bolus 4-10 04-10 mL/hr, 500 it y of infusion 01:00: 02:45 mL, IV [place] 500 mL 00 :00 Infusion, Medical ONCE, 1 Branch dose, On [place] 10/21/22 at 2000, STAT NaCl 0.9% 2022-0 2022- No 1000mL at 999 Uni vers (NS) bolus 10-21 04-10 mL/hr, ity of infusion 23:15: 03:46 1,000 mL, [place] 1,000 mL 00 :00 IV Medical Infusion, Branch ONCE, 1 dose, On [place] 10/21/22 at 1815, [place] FENTanyl PF 2022-2022- No 50ug 50 mcg, Un ela (SUBLIMAZE 10-21- Slow IV ity o f (PF)) 23:15: 23:11 Push, [place] injection 00 :00 ONCE, 1 Medical 50 mcg dose, On Branch 10/21/22 at 1815, Routine insulin NPH 3-0 Yes 45U inject 45 U nivers human [...] Branch times daily. insulin NPH 2023-0 Yes [id number] 45U inject 45 Univers 100 unit/mL 4-09 Units ity of injection 00:00: under the [place] 00 skin every Medical morning Branch and evening. insulin NPH 0 Yes [id number] 45U inject 45 Univers 100 unit/mL 4-09 Units ity of injection 00:00: under the [place] 00 skin every Medical morning Branch and evening. insulin NPH 2022-0 Yes [id number] 45U inject 45 Univers 100 unit/mL 4-09 Units ity of injection 00:00: under the [place] 00 skin every Medical morning Branch and evening. insulin NPH 2022-0 Yes [id number] 45U inject 45 Univers 100 unit/mL 4-09 Units ity of injection 00:00: under the [place] 00 skin every Medical morning Branch and evening. insulin NPH 2022-0 Yes [id number] 45U inject 45 Univers 100 unit/mL 4-09 Units ity of injection 00:00: under the [place] 00 skin every Medical morning Branch and evening. insulin NPH 0 Yes [id number] 45U inject 45 Univers 100 unit/mL 4-09 Units ity of injection 00:00: under the [place] 00 skin every Medical morning Branch and evening. insulin NPH 0 Yes [id number] 45U inject 45 [facility] 100 unit/mL 4-09 Units ity of injection 00:00: under the [place] 00 skin every Medical morning Branch and evening. insulin NPH 0 Yes [id number] 45U inject 45 [facility] 100 unit/mL 4-09 Units ity of injection 00:00: under the [place] 00 skin every Medical morning Branch and evening. insulin NPH 0 Yes [id number] 45U inject 45 [facility] 100 unit/mL 4-09 Units ity of injection 00:00: under the [place] 00 skin every Medical morning Branch and evening. insulin NPH 2022- No [id number] 45U inject 45 [facility] 100 unit/mL 4 04-20 Units ity of injection 00:00: 00:00 under the [place] 00 :00 skin every Medical morning Branch and evening. cefpodoxime 2022- Yes [id number] 200mg Take 1 Univers 200 mg 10-21-17 tablet by ity of tablet 00:00: 04:59 mouth in [place] 00 :00 the Medical morning Branch and 1 tablet in the evening. Do all this for 7 days. cefpodoxime 2022- Yes [id number] 200mg Take 1 Univers 200 mg 10-21 tablet by ity of tablet 00:00: 04:59 mouth in [place] 00 :00 the [facility] morning Branch and 1 tablet in the evening. Do all this for 7 days. cefTRIAXone 2022- No 1000mg 1,000 mg, Univers (ROCEPHIN) 10-06 IV ity of 1,000 mg in 00:00: 00:31 [place], [place] NaCl 0.9% 00 :00 ONCE, 1 Medical (NS) 100 mL dose, On Bran ch MINI-BAG Sat10/05/22 at 1900, Administer over 30 Minutes, 100 mL
Reas on for Anti-Infec tive: Documented Infection< br>Documen lester Infection Site: Urine<br&g t;Duration of Therapy: 7 days NaCl 0.9% 2022- No 1000mL at 999 Uni vers (NS) bolus 10-05 mL/hr, ity of infusion 23:45: 01:32 1,000 mL, [place] as 1,000 mL 00 :00 IV [facility] [place] ONCE, 1 dose, On Sat10/05/22 at 1845, STAT insulin 2022- No 10U 10 Units, Univ ers regular 10-05 Subcutaneo ity o f human 23:45: 23:08 , ONCE, [place] (HUMULIN R) 00 :00 1 dose, On Me dical injection Fri Branch 10 Units 10/05/22 at 1845, Routine
Indicatio n for insulin: Hyperglyce pedro iopamidol 2022- No [id number] 100mL 100 mL, Univers (ISOVUE 10-05 Intravenou [...] 1 Medical 50 mcg dose, On Branch 10/05/22 at 1715, Routine NaCl 0.9% 2022- No 1000mL at 999 Uni vers (NS) bolus 10-05 03-25 mL/hr, ity of infusion 22:00: 01:32 1,000 mL, [place] 1,000 mL 00 :00 IV Medical Infusion, Branch ONCE, 1 dose, On 10/05/22 at 1700, [place] proMETHazin 2022-0 2022- No 25mg 25 mg, IV Univers e 10-05-24 Piggyback, ity of (PHENERGAN) 21:15: 21:46 ONCE, 1 [place] 25 mg in 00 :00 dose, On Medical NaCl 0.9% Fri Branch (NS) 50 mL 10/05/22 at IV 1615, [place] piggyback cefdinir 2022-0 2022- Yes [id number] 300mg Take 1 Univers 300 mg 10-05-08 capsule by ity of capsule 00:00: 04:59 mouth [place] 00 :00 every 12 Medical (twelve) Branch hours for 14 days. cefdinir 2022-0 2022- Yes [id number] 300mg Take 1 Univers 300 mg 3-24 04-08 capsule by ity of capsule 00:00: 04:59 mouth [place] 00 :00 every 12 Medical (twelve) Branch hours for 14 days. cefdinir 2022-0 2022- Yes [id number] 300mg Take 1 Univers 300 mg 3 04-08 capsule by ity of capsule 00:00: 04:59 mouth [place] 00 :00 every 12 Medical (twelve) Branch hours for 14 days. sodium 3-0 Yes Topical, Univers hypochlorit 2-23 TID, First it y of e 0.25% 20:00: dose on [place] (DAKIN'S 00 [facility] Medical SOLUTION) 09/06/22 at Bran ch solution 1400, Until Discontinu ed, Routine sodium 2023-0 Yes Topical, Univers hypochlorit 2-23 TID, First it y of e 0.25% 20:00: dose on [place] (DAKIN'S 00 [facility] Medical SOLUTION) 09/06/22 at Bran ch solution 1400, Until Discontinu ed, Routine HYDROmorpho 2022-0 Yes 4mg Take 4 mg U nivers ne 4 mg 2-23 by mouth ity of tablet 14:27: in the [place] [address] morning Medical and 4 mg Branch at [...] mouth ity of tablet 14:27: in the [place] [address] morning Medical and 4 mg Branch at [...] mouth ity of tablet 14:27: in the [place] [address] morning Medical and 4 mg Branch at [...] mouth ity of tablet 14:27: in the [place] [address] morning Medical and 4 mg Branch at [...] mouth ity of tablet 14:27: in the [place] [address] morning Medical and 4 mg Branch at [...] mouth ity of tablet 14:27: in the [place] [address] morning Medical and 4 mg Branch at noon and 4 mg in the evening. HYDROmorpho 2023-0 Yes 4mg Take 4 mg U nivers ne 4 mg 2-23 by mouth ity of tablet 14:27: in the [place] [address] morning Medical and 4 mg Branch at noon and 4 mg in the evening. HYDROmorpho 2023-0 Yes 4mg Take 4 mg U nivers ne 4 mg 2-23 by mouth ity of tablet 14:27: in the [place] [address] morning Medical and 4 mg Branch at noon and 4 mg in the evening. HYDROmorpho 2023-0 Yes 4mg Take 4 mg U nivers ne 4 mg 2-23 by mouth ity of tablet 14:27: in the [place] [address] morning Medical and 4 mg Branch at noon and 4 mg in the evening. HYDROmorpho 2023-0 Yes 4mg Take 4 mg U nivers ne 4 mg 2-23 by mouth ity of tablet 14:27: in the [place] [address] morning Medical and 4 mg Branch at noon and 4 mg in the evening. HYDROmorpho 2023-0 Yes 4mg Take 4 mg U nivers ne 4 mg 2-23 by mouth ity of tablet 14:27: in the [place] [address] morning Medical and 4 mg Branch at noon and 4 mg in the evening. HYDROmorpho 2023-0 Yes 4mg Take 4 mg U nivers ne 4 mg 2-23 by mouth ity of tablet 14:27: in the [place] [address] morning Medical and 4 mg Branch at noon and 4 mg in the evening. HYDROmorpho 2023-0 Yes 4mg Take 4 mg U nivers ne 4 mg 2-23 by mouth ity of tablet 14:27: in the [place] [address] morning Medical and 4 mg Branch at noon and 4 mg in the evening. HYDROmorpho 2023-0 Yes 4mg Take 4 mg U nivers ne 4 mg 2-23 by mouth ity of tablet 14:27: in the [place] [address] morning Medical and 4 mg Branch at noon and 4 mg in the evening. HYDROmorpho 2023-0 Yes 4mg Take 4 mg U nivers ne 4 mg 2-23 by mouth ity of tablet 14:27: in the [place] [address] morning Medical and 4 mg Branch at noon and 4 mg in the evening. HYDROmorpho 2023-0 Yes 4mg Take 4 mg U nivers ne 4 mg 2-23 by mouth ity of tablet 14:27: in the [place] [address] morning Medical and 4 mg Branch at noon and 4 mg in the evening. HYDROmorpho 2023-0 Yes 4mg Take 4 mg U nivers ne 4 mg 2-23 by mouth ity of tablet 14:27: in the [place] [address] morning Medical and 4 mg Branch at noon and 4 mg in the evening. HYDROmorpho 2023-0 Yes 4mg Take 4 mg U nivers ne 4 mg 2-23 by mouth ity of tablet 14:27: in the [place] [address] morning Medical and 4 mg Branch at noon and 4 mg in the evening. HYDROmorpho 2023-0 Yes 4mg Take 4 mg U nivers ne 4 mg 2-23 by mouth ity of tablet 14:27: in the [place] [address] morning Medical and 4 mg Branch at noon and 4 mg in the evening. HYDROmorpho 2023-0 Yes 4mg Take 4 mg U nivers ne 4 mg 2-23 by mouth ity of tablet 14:27: in the [place] [address] morning Medical and 4 mg Branch at noon and 4 mg in the evening. HYDROmorpho 2023-0 Yes 4mg Take 4 mg U nivers ne 4 mg 2-23 by mouth ity of tablet 14:27: in the [place] [address] morning Medical and 4 mg Branch at noon and 4 mg in the evening. HYDROmorpho 2023-0 Yes 4mg Take 4 mg U nivers ne 4 mg 2-23 by mouth ity of tablet 14:27: in the [place] [address] morning Medical and 4 mg Branch at noon and 4 mg in the evening. HYDROmorpho 2023-0 Yes 4mg Take 4 mg U nivers ne 4 mg 2-23 by mouth ity of tablet 14:27: in the [place] [address] morning Medical and 4 mg Branch at noon and 4 mg in the evening. HYDROmorpho 2023-0 Yes 4mg Take 4 mg U nivers ne 4 mg 2-23 by mouth ity of tablet 14:27: in the [place] [address] morning Medical and 4 mg Branch at noon and 4 mg in the evening. HYDROmorpho 2023-0 Yes 4mg Take 4 mg U nivers ne 4 mg 2-23 by mouth ity of tablet 14:27: in the [place] [address] morning Medical and 4 mg Branch at noon and 4 mg in the evening. HYDROmorpho 2023-0 Yes 4mg Take 4 mg U nivers ne 4 mg 2-23 by mouth ity of tablet 14:27: in the [place] [address] morning Medical and 4 mg Branch at noon and 4 mg in the evening. HYDROmorpho 2023-0 2023- No 1mg 1 mg, Slow Univers ne 09-06 IV Push, ity of (DILAUDID) 11:09: 11:08 Q4HPRN, [place] injection 1 37 :37 Starting Medi efrain mg on [facility] Branch 09/06/22 at 0509, Until 09/08/22 at 0508, Routine, Pain (scale 7-10)
U se approved by (Faculty): [facility] HYDROmorpho 2023-0 2023- No 1mg 1 mg, Slow Univers ne 09-06 IV Push, ity of (DILAUDID) 11:09: 11:08 Q4HPRN, [place] injection 1 37 :37 Starting Medi efrain mg on [place] Branch 09/06/22 at 0509, Until 09/08/22 at 0508, Routine, Pain (scale 7-10)
U se approved by (Faculty): [facility] HYDROmorpho 2023-0 Yes 4mg Take 4 mg U nivers ne 4 mg 2-23 by mouth ity of tablet 10:57: in the [place] [address] morning Medical and 4 mg Branch at [...] mouth ity of tablet 10:57: in the [place] [address] morning Medical and 4 mg Branch at noon and 4 mg in the evening. insulin NPH 2023-0 Yes 45U inject 45 U nivers human 2- Units ity of isophane 10:57: [place] (NOVOLIN N 10 skin 2 Medical SC) (two) Branch times daily. sodium 2022- No 16[oz_a 16 oz, Unive rs hypochlorit 09-06 v] Topical, ity of e 0.5% 04:00: 18:17 Q8H, First [place] (DAKINS) 00 :09 dose on Medical solution 16 Wed Branch oz 09/05/22 at 2200, Until Discontinu ed, Routine amitriptyli Yes 25mg 25 mg, Univ ers ne (ELAVIL) 2-23 Oral, QHS, it y of tablet 25 03:45: First dose [place] mg 00 on Sat Medical 09/05/22 at Branch 2145, Until Discontinu ed, Routine amitriptyli 0 Yes 25mg 25 mg, Univ ers ne (ELAVIL) - Oral, QHS, it y of tablet 25 03:45: First dose [place] mg 00 on Sat Medical 09/05/22 at Branch 2145, Until Discontinu ed, Routine HYDROmorpho 2022- No 1mg 1 mg, Slow Univers ne 09-06 IV Push, ity of (DILAUDID) 03:40: 09:56 Q4HPRN, [place] injection 1 47 :20 Starting Medi efrain mg on Wed Branch 09/05/22 at 2140, Until [place] 09/06/22 at 0356, Routine, Pain (scale 7-10)
U se approved by (Faculty): [facility] FENTanyl PF 2022- No 25ug 25 mcg, Un ela (SUBLIMAZE 09-05 Slow IV ity o f (PF)) 20:55: 21:26 [place], [place] injection 32 :00 Q5MIN PRN, Medi efrain 25 mcg 4 doses, Branch Starting on 09/05/22 at 1455, Until 09/05/22 at 1526, Routine, Pain (scale 7-10), PACU bupivacaine 2022- No PRN, Unive rs (preserv 09-05 Starting ity of free) 20:36: 21:03 on Sat (SENSORCAIN 00 :01 09/05/22 at [place] dical E MPF) 0.25 1436, Branch % (2.5 Until Sat mg/mL) 09/05/22 at injection 1503, Routine, Intra-op insulin 2022-0 Yes 4U 4 Units, Univer s lispro 09-05 Subcutaneo ity of (human) 17:30: us, TIDAC [place] (HumaLOG 00 First dose Medic al U-100) on Sat Branch injection 4 09/05/22 at Units 1130, Until Discontinu ed, Routine insulin 2022-0 Yes 4U 4 Units, Univer s lispro 09-05 Subcutaneo ity of (human) 17:30: us, TIDAC, [place] (HumaLOG 00 First dose Medic al U-100) on Sat Branch injection 4 09/05/22 at Units 1130, Until Discontinu ed, Routine proMETHazin 0 Yes 12.5mg 12.5 mg, Univers e 09-05 IV ity of (PHENERGAN) 15:11: Piggyback, [place] 12.5 mg in 52 at 200 Medical NaCl 0.9% mL/hr Branch (NS) 50 mL Administer IV over 15 piggyback Minutes, Q4HPRN, Starting on Sat09/05/22 at 0911, Until Discontinu ed, Routine, N/V unresponsi ve to Ondansetro n proMETHazin 2022-0 Yes 12.5mg 12.5 mg, Univers e 09-05 IV ity of (PHENERGAN) 15:11: Piggyback, [place] 12.5 mg in 52 at 200 Medical NaCl 0.9% mL/hr Branch (NS) 50 mL Administer IV over 15 piggyback Minutes, Q4HPRN, Starting on Sat09/05/22 at 0911, Until Discontinu ed, Routine, N/V unresponsi ve to Ondansetro n cefTRIAXone 2022-0 202- No 1000mg 1,000 mg, Univers (ROCEPHIN) 09-05 0301 IV ity of 1,000 mg in 04:00: 03:59 Piggyback, [place] NaCl 0.9% 00 :00 Q24H, 7 Medical (NS) 50 mL doses, Branch MINI-BAG First dose on Sat09/04/22 at 2200, Last dose on Sat09/10/22 at 2200, Administer over 30 Minutes, 50 mL
Reas on for Anti-Infec tive: Documented Infection< br>Documen lester Infection Site: Urine
D uration of Therapy: 7 days cefTRIAXone 2022-0 2022- No 1000mg 1,000 mg, Univers (ROCEPHIN) 09-05 IV ity of 1,000 mg in 04:00: 03:59 [place] NaCl 0.9% 00 :00 Q24H, 7 Medical (NS) 50 mL doses, Branch MINI-BAG First dose on Sat09/04/22 at 2200, Last dose on Sat09/10/22 at 2200, Administer over 30 Minutes, 50 mL
Reas on for Anti-Infec tive: Documented Infection< br>Documen lester Infection Site: Urine
D uration of Therapy: 7 days insulin NPH 0 Yes 30U 30 Units, U nivers (HUMULIN N) 2- Subcutaneo it y of injection 03:00: , [place] 30 Units 00 QAM+HS, Medical First dose Branch (after last modificati on) on Sat09/04/22 at 2100, Until Discontinu ed, Routine insulin NPH 0 Yes 30U 30 Units, U nivers (HUMULIN N) 2- Subcutaneo it y of injection 03:00: , [place] 30 Units 00 QAM+HS, Medical First dose Branch (after last modificati on) on Sat09/04/22 at 2100, Until Discontinu ed, Routine enoxaparin 0 Yes 40mg 40 mg, Unive rs (LOVENOX) 2- Subcutaneo ity of injection 23:00: us, DAILY, [place] 40 mg 00 First dose Medical on Sat09/04/22 at 1700, Until Discontinu ed, Routine enoxaparin 0 Yes 40mg 40 mg, Unive rs (LOVENOX) 2- Subcutaneo ity of injection 23:00: [place], DAILY, [place] 40 mg 00 First dose Medical on Sat23 at 1700, Until Discontinu ed, Routine proCHLORper Yes 10mg 10 mg, IV U nivers azine 09-04 Piggyback, ity of (COMPAZINE) 20:07: at 100 [place] 10 mg in 44 mL/hr Medical NaCl 0.9% Administer Bran ch (NS) over 30 piggyback Minutes, Q6HPRN, Starting on Sat09/04/22 at 1407, Until Discontinu ed, Routine, Nausea and Vomiting (N/V) proCHLORper Yes 10mg 10 mg, IV U nivers [...] Subcutaneo ity o f human 19:00: 19:28 , ONCE, [place] (HUMULIN R) 00 :00 1 dose, On Me dical injection [facility] 10 Units 09/04/22 at 1300, Routine
Indicatio n for insulin: Hyperglyce pedro insulin 2022- No 10U 10 Units, Univ ers regular 09-04 IV Push, ity of human 16:00: 17:00 ONCE, 1 [place] (HUMULIN R) 00 :00 dose, On Medi efrain injection [facility] Branch 10 Units 09/04/22 at 1000, Routine
Indicatio n for insulin: Hyperglyce pedro pantoprazol Yes 40mg 40 mg, Univ ers e 09-04 Slow IV ity of (PROTONIX) 15:00: Push, [place] injection 00 DAILY, Medical 40 mg First dose Branch on Sat09/04/22 at 0900, Until Discontinu ed sennosides- Yes 1{tbl} 1 tablet, Univers docusate 09-04 Oral, ity of sodium 15:00: DAILY, [place] (SENOKOT-S) 00 First dose Me dical 8.6-50 mg on Sat Branch per tablet 09/04/22 at 1 tablet 0900, Until Discontinu ed, Routine pantoprazol Yes 40mg 40 mg, Univ ers e 09-04 Slow IV ity of (PROTONIX) 15:00: Push, [place] injection 00 DAILY, Medical 40 mg First dose Branch on Sat09/04/22 at 0900, Until Discontinu ed sennosides- Yes 1{tbl} 1 tablet, Univers docusate 09-04 Oral, ity of sodium 15:00: DAILY, [place] (SENOKOT-S) 00 First dose Me dical 8.6-50 mg on Sat Branch per tablet 09/04/22 at 1 tablet 0900, Until Discontinu ed, Routine insulin NPH 2022- No 20U 20 Units, Univers (HUMULIN N) 09-04 Subcutaneo i ty of injection 15:00: 18:00 , [place] 20 Units 00 :37 QAM+HS, Medical First [...] Testing 0800, Until Discontinu ed, Routine HYDROmorpho 2022- No .5mg 0.5 mg, Un ela ne 09-04 Slow IV ity of (DILAUDID) 09:57: 03:41 [place], [place] injection 20 :06 Q4HPRN, Medical 0.5 mg Starting Branch on Sat09/04/22 at 0357, Until Sat09/05/22 at 2141, Routine, Pain (scale 7-10)
U se approved by (Faculty): [facility] HYDROmorpho 2023-0 Yes 4mg 4 mg, Unive rs ne 09-04 Oral, ity of (DILAUDID) 09:57: Q4HPRN, [place] tablet 4 mg 04 Starting Medi efrain on Sat Branch 09/04/22 at 0357, Until Discontinu ed, Routine, Pain (scale 4-6) HYDROmorpho 2023-0 Yes 4mg 4 mg, Unive rs ne 09-04 Oral, ity of (DILAUDID) 09:57: Q4HPRN, [place] tablet 4 mg 04 Starting Medi efrain on Sat Branch 09/04/22 at 0357, Until Discontinu ed, Routine, Pain (scale 4-6) FENTanyl PF 3-0 2022- No 50ug 50 mcg, Un ela (SUBLIMAZE 09-04 Slow IV ity o f (PF)) 09:17: 09:58 [place], [place] injection 04 :01 Q4HPRN, Medical 50 mcg Starting Branch on Sat09/04/22 at 0317, Until Sat09/04/22 at 0358, Routine, Pain (scale 7-10) NaCl 0.9% 3-0 Yes 1000mL at 125 Univ ers (NS) IV 2-21 mL/hr, IV ity of infusion 09:00: Infusion, [place] 1,000 mL 00 CONTINUOUS Medic al , Starting Branch on Sat09/04/22 at 0300, Until Discontinu ed, Routine NaCl 0.9% 2023-0 Yes 1000mL at 125 Univ ers (NS) IV 2-21 mL/hr, IV ity of infusion 09:00: Infusion, [place] 1,000 mL 00 CONTINUOUS Medic al , Starting Branch on Sat09/04/22 at 0300, Until Discontinu ed, Routine glucagon 2022-0 Yes 1mg 1 mg, Univers (GLUCAGEN 09-04 Intramuscu ity of DIAGNOSTIC 08:53: [place], [place]N, [place] KIT) 52 Starting Medical injection 1 on Sat Branch mg 09/04/22 at 0253, Until Discontinu ed, SAHARA, Blood Glucose < or = 70 mg/dL and patient is NPO, unable to swallow or has mental changes. dextrose 50 2022-0 Yes 25mL 25 mL, Univ ers % in water 2-21 Slow IV ity of (D50W) 08:53: Push, PRN, [place] injection 52 Starting Medica l 25 mL on e Branch 09/04/22 at 0253, Until Discontinu ed, SAHARA, Blood Glucose < or = 70 mg/dL and patient is NPO, unable to swallow or has mental status changes. glucagon 2023-0 Yes 1mg 1 mg, Univers (GLUCAGEN 09-04 Intramuscu ity of DIAGNOSTIC 08:53: [place], [place], [place] KIT) 52 Starting Medical injection 1 on [facility] Branch mg 09/04/22 at 0253, Until Discontinu ed, SAHARA, Blood Glucose < or = 70 mg/dL and patient is NPO, unable to swallow or has mental changes. dextrose 50 2023-0 Yes 25mL 25 mL, Univ ers % in water 2- Slow IV ity of (D50W) 08:53: Push, PRN, [place] injection 52 Starting Medica l 25 mL on [facility] Branch 09/04/22 at 0253, Until Discontinu ed, SAHARA, Blood Glucose < or = 70 mg/dL and patient is NPO, unable to swallow or has mental status changes. ondansetron 2023-0 Yes 4mg 4 mg, Slow Univers (ZOFRAN 2-21 IV Push, ity of (PF)) 08:53: Q6HPRN, [place] injection 4 45 Starting Medi efrain mg on [facility] Branch 09/04/22 at 0253, Until Discontinu ed, Routine, Nausea and Vomiting (N/V) ondansetron 2023-0 Yes 4mg 4 mg, Slow Univers (ZOFRAN 2-21 IV Push, ity of (PF)) 08:53: Q6HPRN, [place] injection 4 45 Starting Medi efrain mg on [facility] Branch 09/04/22 at 0253, Until Discontinu ed, Routine, Nausea and Vomiting (N/V) acetaminoph 2023-0 Yes 650mg 650 mg, Un ela en 2 Oral, ity of (TYLENOL) 08:53: Q6HPRN, [place] tablet 650 15 Starting Medic al mg on [facility] Branch 09/04/22 at 0253, Until Discontinu ed, Routine, Pain (scale 1-3) acetaminoph Yes 650mg 650 mg, Un ela en 09-04 Oral, ity of (TYLENOL) 08:53: Q6HPRN, [place] tablet 650 15 Starting Medic al mg on Tu Branch 09/04/22 at 0253, Until Discontinu ed, Routine, Pain (scale 1-3) insulin 2022- No 10U 10 Units, Univ ers regular 09-04 IV Push, ity of human 06:30: 05:53 ONCE, 1 [place] (HUMULIN R) 00 :00 dose, On Medi efrain injection Tue Branch 10 Units 09/04/22 at 0030, Routine
Indicatio n for insulin: Hyperglyce pedro NaCl 0.9% 2022- No 1000mL at 999 Uni vers (NS) bolus 09-04 mL/hr, ity of infusion 06:00: 06:53 1,000 mL, Tim as 1,000 mL 00 :00 IV Medical Infusion, Branch ONCE, 1 dose, On Sat09/04/22 at 0000, SAHARA insulin 2022- No 10U 10 Units, Univ ers regular 09-04 Slow IV ity of human 05:00: 04:15 Push, [place] (HUMULIN R) 00 :00 ONCE, 1 Medic al injection dose, On Branch 10 Units 09/03/22 at 2300, Routine
Indicatio n for insulin: Hyperglyce pedro NaCl 0.9% 2022- No 1000mL at 999 Uni vers (NS) bolus 09-04 mL/hr, ity of infusion 04:45: 05:33 1,000 mL, Tim as 1,000 mL 00 :00 IV Medical Infusion, Branch ONCE, 1 dose, On 09/03/22 at 2245, SAHARA ibuprofen 2022-2022- No 600mg 600 mg, Uni vers (IBU) 09-04 Oral, ity of tablet 600 04:09: 04:21 ONCE, 1 [place] mg 00 :00 dose, On Medical Mon Branch 09/03/22 at 2215, SAHARA cefTRIAXone 2022-2022- No 1000mg 1,000 mg, Univers (ROCEPHIN) 2-21 02-21 IV ity of 1,000 mg in 03:45: 04:34 [place], [place] NaCl 0.9% 00 :00 ONCE, 1 Medical (NS) 100 mL dose, On Bran ch MINI-BAG 09/03/22 at 2145, Administer over 30 Minutes, 100 mL
Reas on for Anti-Infec tive: Documented Infection< br>Documen lester Infection Site: Urine<br&g t;Duration of Therapy: Other (see Comments) HYDROmorpho 2022-0 Yes 4mg Take 4 mg U nivers ne 4 mg 2-21 by mouth ity of tablet 01:46: in the [place] 16 morning Medical and 4 mg Branch at noon and 4 mg in the evening. insulin NPH 2022-0 Yes 45U inject 45 U nivers human 2-21 Units ity of isophane 01:46: [place] (NOVOLIN N 16 skin 2 Medical SC) (two) Branch times daily. flash 3-0 Yes [id number] 1{kit} 1 Kit Unive rs glucose 2-14 daily. ity of scanning 00:00: [place] reader 00 Medical (FREESTYLE Branch RIGO 2 READER) Misc flash 2023-0 Yes [id number] 1{kit} 1 Kit Unive rs glucose 2-14 every 14 ity of sensor 00:00: (fourteen) [place] (FREESTYLE 00 days. Medical RIGO 2 Branch SENSOR) Kit flash 2023-0 Yes [id number] 1{kit} 1 Kit Unive rs glucose 2-14 daily. ity of scanning 00:00: [place] reader 00 Medical (FREESTYLE Branch RIGO 2 READER) Misc flash 2023-0 Yes [id number] 1{kit} 1 Kit Unive rs glucose 2-14 every 14 ity of sensor 00:00: (fourteen) [place] (FREESTYLE 00 days. Medical RIGO 2 Branch SENSOR) Kit flash 2023-0 Yes [id number] 1{kit} 1 Kit Unive rs glucose 2-14 daily. ity of scanning 00:00: [place] reader 00 Medical (FREESTYLE Branch RIGO 2 READER) Misc flash 2023-0 Yes [id number] 1{kit} 1 Kit Unive rs glucose 2-14 every 14 ity of sensor 00:00: (fourteen) [place] (FREESTYLE 00 days. Medical RIGO 2 Branch SENSOR) Kit flash 2023-0 Yes [id number] 1{kit} 1 Kit Unive rs glucose 2-14 daily. ity of scanning 00:00: [place] reader 00 Medical (FREESTYLE Branch RIGO 2 READER) Misc flash 2023-0 Yes [id number] 1{kit} 1 Kit Unive rs glucose 2-14 every 14 ity of sensor 00:00: (fourteen) [place] (FREESTYLE 00 days. Medical RIGO 2 Branch SENSOR) Kit flash 2023-0 Yes [id number] 1{kit} 1 Kit Unive rs glucose 2-14 daily. ity of scanning 00:00: [place] reader 00 Medical (FREESTYLE Branch RIGO 2 READER) Misc flash 2023-0 Yes [id number] 1{kit} 1 Kit Unive rs glucose 2-14 every 14 ity of sensor 00:00: (fourteen) [place] (FREESTYLE 00 days. Medical RIGO 2 Branch SENSOR) Kit flash 2023-0 Yes [id number] 1{kit} 1 Kit Unive rs glucose 2-14 daily. ity of scanning 00:00: [place] reader 00 Medical (FREESTYLE Branch RIGO 2 READER) Misc flash 2023-0 Yes [id number] 1{kit} 1 Kit Unive rs glucose 2-14 every 14 ity of sensor 00:00: (fourteen) [place] (FREESTYLE 00 days. Medical RIGO 2 Branch SENSOR) Kit flash 2023-0 Yes [id number] 1{kit} 1 Kit Unive rs glucose 2-14 daily. ity of scanning 00:00: [place] reader 00 Medical (FREESTYLE Branch RIGO 2 READER) Misc flash 2023-0 Yes [id number] 1{kit} 1 Kit Unive rs glucose 2-14 every 14 ity of sensor 00:00: (fourteen) [place] (FREESTYLE 00 days. Medical IRGO 2 Branch SENSOR) Kit flash 2023-0 Yes [id number] 1{kit} 1 Kit Unive rs glucose 2-14 daily. ity of scanning 00:00: [place] reader 00 Medical (FREESTYLE Branch RIGO 2 READER) Misc flash 2023-0 Yes [id number] 1{kit} 1 Kit Unive rs glucose 2-14 every 14 ity of sensor 00:00: (fourteen) [place] (FREESTYLE 00 days. Medical RIGO 2 Branch SENSOR) Kit flash 2023-0 Yes [id number] 1{kit} 1 Kit Unive rs glucose 2-14 daily. ity of scanning 00:00: [place] reader 00 Medical (FREESTYLE Branch RIGO 2 READER) Misc flash 2023-0 Yes [id number] 1{kit} 1 Kit Unive rs glucose 2-14 every 14 ity of sensor 00:00: (fourteen) [place] (FREESTYLE 00 days. Medical RIGO 2 Branch SENSOR) Kit flash 2023-0 Yes [id number] 1{kit} 1 Kit Unive rs glucose 2-14 daily. ity of scanning 00:00: [place] reader 00 Medical (FREESTYLE Branch RIGO 2 READER) Misc flash 2023-0 Yes [id number] 1{kit} 1 Kit Unive rs glucose 2-14 every 14 ity of sensor 00:00: (fourteen) [place] (FREESTYLE 00 days. Medical RIGO 2 Branch SENSOR) Kit flash 2023-0 Yes [id number] 1{kit} 1 Kit Unive rs glucose 2-14 daily. ity of scanning 00:00: [place] reader 00 Medical (FREESTYLE Branch RIGO 2 READER) Misc flash 2023-0 Yes [id number] 1{kit} 1 Kit Unive rs glucose 2-14 every 14 ity of sensor 00:00: (fourteen) [place] (FREESTYLE 00 days. Medical RIGO 2 Branch SENSOR) Kit flash 2023-0 Yes [id number] 1{kit} 1 Kit Unive rs glucose 2-14 daily. ity of scanning 00:00: [place] reader 00 Medical (FREESTYLE Branch RIGO 2 READER) Misc flash 2023-0 Yes [id number] 1{kit} 1 Kit Unive rs glucose 2-14 every 14 ity of sensor 00:00: (fourteen) [place] (FREESTYLE 00 days. Medical RIGO 2 Branch SENSOR) Kit flash 2023-0 Yes [id number] 1{kit} 1 Kit Unive rs glucose 2-14 daily. ity of scanning 00:00: [place] reader 00 Medical (FREESTYLE Branch RIGO 2 READER) Misc flash 2023-0 Yes [id number] 1{kit} 1 Kit Unive rs glucose 2-14 every 14 ity of sensor 00:00: (fourteen) [place] (FREESTYLE 00 days. Medical RIGO 2 Branch SENSOR) Kit flash 2023-0 Yes [id number] 1{kit} 1 Kit Unive rs glucose 2-14 daily. ity of scanning 00:00: [place] reader 00 Medical (FREESTYLE Branch RIGO 2 READER) Misc flash 2023-0 Yes [id number] 1{kit} 1 Kit Unive rs glucose 2-14 every 14 ity of sensor 00:00: (fourteen) [place] (FREESTYLE 00 days. Medical RIGO 2 Branch SENSOR) Kit flash 2023-0 Yes [id number] 1{kit} 1 Kit Unive rs glucose 2-14 daily. ity of scanning 00:00: [place] reader 00 Medical (FREESTYLE Branch RIGO 2 READER) Misc flash 2023-0 Yes [id number] 1{kit} 1 Kit Unive rs glucose 2-14 every 14 ity of sensor 00:00: (fourteen) [place] (FREESTYLE 00 days. Medical RIGO 2 Branch SENSOR) Kit flash 2023-0 Yes [id number] 1{kit} 1 Kit Unive rs glucose 2-14 daily. ity of scanning 00:00: [place] reader 00 Medical (FREESTYLE Branch RIGO 2 READER) Misc flash 2023-0 Yes [id number] 1{kit} 1 Kit Unive rs glucose 2-14 every 14 ity of sensor 00:00: (fourteen) [place] (FREESTYLE 00 days. Medical RIGO 2 Branch SENSOR) Kit flash 2023-0 Yes [id number] 1{kit} 1 Kit Unive rs glucose 2-14 daily. ity of scanning 00:00: [place] reader 00 Medical (FREESTYLE Branch RIGO 2 READER) Misc flash 2023-0 Yes [id number] 1{kit} 1 Kit Unive rs glucose 2-14 every 14 ity of sensor 00:00: (fourteen) [place] (FREESTYLE 00 days. Medical RIGO 2 Branch SENSOR) Kit flash 2023-0 Yes [id number] 1{kit} 1 Kit Unive rs glucose 2-14 daily. ity of scanning 00:00: [place] reader 00 Medical (FREESTYLE Branch RIGO 2 READER) Misc flash 2023-0 Yes [id number] 1{kit} 1 Kit Unive rs glucose 2-14 every 14 ity of sensor 00:00: (fourteen) [place] (FREESTYLE 00 days. Medical RIGO 2 Branch SENSOR) Kit flash 2023-0 Yes [id number] 1{kit} 1 Kit Unive rs glucose 2-14 daily. ity of scanning 00:00: [place] reader 00 Medical (FREESTYLE Branch RIGO 2 READER) Misc flash 2023-0 Yes [id number] 1{kit} 1 Kit Unive rs glucose 2-14 every 14 ity of sensor 00:00: (fourteen) [place] (FREESTYLE 00 days. Medical RIGO 2 Branch SENSOR) Kit flash 2023-0 Yes [id number] 1{kit} 1 Kit Unive rs glucose 2-14 daily. ity of scanning 00:00: [place] reader 00 Medical (FREESTYLE Branch IRGO 2 READER) Misc flash 2023-0 Yes [id number] 1{kit} 1 Kit Unive rs glucose 2-14 every 14 ity of sensor 00:00: (fourteen) [place] (FREESTYLE 00 days. Medical RIGO 2 Branch SENSOR) Kit flash 2023-0 Yes [id number] 1{kit} 1 Kit Unive rs glucose 2-14 daily. ity of scanning 00:00: [place] reader 00 Medical (FREESTYLE Branch RIGO 2 READER) Misc flash 2023-0 Yes [id number] 1{kit} 1 Kit Unive rs glucose 2-14 every 14 ity of sensor 00:00: (fourteen) [place] (FREESTYLE 00 days. Medical RIGO 2 Branch SENSOR) Kit flash 2023-0 Yes [id number] 1{kit} 1 Kit Unive rs glucose 2-14 daily. ity of scanning 00:00: [place] reader 00 Medical (FREESTYLE Branch RIGO 2 READER) Misc flash 2023-0 Yes [id number] 1{kit} 1 Kit Unive rs glucose 2-14 every 14 ity of sensor 00:00: (fourteen) [place] (FREESTYLE 00 days. Medical RIGO 2 Branch SENSOR) Kit flash 2023-0 Yes [id number] 1{kit} 1 Kit Unive rs glucose 2-14 daily. ity of scanning 00:00: [place] reader 00 Medical (FREESTYLE Branch RIGO 2 READER) Misc flash 2023-0 Yes [id number] 1{kit} 1 Kit Unive rs glucose 2-14 every 14 ity of sensor 00:00: (fourteen) [place] (FREESTYLE 00 days. Medical RIGO 2 Branch SENSOR) Kit flash 2023-0 Yes [id number] 1{kit} 1 Kit Unive rs glucose 2-14 daily. ity of scanning 00:00: [place] reader 00 Medical (FREESTYLE Branch RIGO 2 READER) Misc flash 2023-0 Yes [id number] 1{kit} 1 Kit Unive rs glucose 2-14 every 14 ity of sensor 00:00: (fourteen) [place] (FREESTYLE 00 days. Medical RIGO 2 Branch SENSOR) Kit flash 2023-0 Yes [id number] 1{kit} 1 Kit Unive rs glucose 2-14 daily. ity of scanning 00:00: [place] reader 00 Medical (FREESTYLE Branch RIGO 2 READER) Misc flash 2023-0 Yes [id number] 1{kit} 1 Kit Unive rs glucose 2-14 every 14 ity of sensor 00:00: (fourteen) [place] (FREESTYLE 00 days. Medical RIGO 2 Branch SENSOR) Kit flash 2023-0 Yes [id number] 1{kit} 1 Kit Unive rs glucose 2-14 daily. ity of scanning 00:00: [place] reader 00 Medical (FREESTYLE Branch RIGO 2 READER) Misc flash 2023-0 Yes [id number] 1{kit} 1 Kit Unive rs glucose 2-14 every 14 ity of sensor 00:00: (fourteen) [place] (FREESTYLE 00 days. Medical RIGO 2 Branch SENSOR) Kit flash 2023-0 Yes [id number] 1{kit} 1 Kit Unive rs glucose 2-14 daily. ity of scanning 00:00: [place] reader 00 Medical (FREESTYLE Branch RIGO 2 READER) Misc flash 2023-0 Yes [id number] 1{kit} 1 Kit Unive rs glucose 2-14 every 14 ity of sensor 00:00: (fourteen) [place] (FREESTYLE 00 days. Medical RIGO 2 Branch SENSOR) Kit flash 2023-0 Yes [id number] 1{kit} 1 Kit Unive rs glucose 2-14 daily. ity of scanning 00:00: [place] reader 00 Medical (FREESTYLE Branch RIGO 2 READER) Misc flash 2023-0 Yes [id number] 1{kit} 1 Kit Unive rs glucose 2-14 every 14 ity of sensor 00:00: (fourteen) [place] (FREESTYLE 00 days. Medical RIGO 2 Branch SENSOR) Kit flash 2023-0 Yes [id number] 1{kit} 1 Kit Unive rs glucose 2-14 daily. ity of scanning 00:00: [place] reader 00 Medical (FREESTYLE Branch RIGO 2 READER) Misc flash 2023-0 Yes [id number] 1{kit} 1 Kit Unive rs glucose 2-14 every 14 ity of sensor 00:00: (fourteen) [place] (FREESTYLE 00 days. Medical RIGO 2 Branch SENSOR) Kit flash 2023-0 Yes [id number] 1{kit} 1 Kit Unive rs glucose 2-14 daily. ity of scanning 00:00: [place] reader 00 Medical (FREESTYLE Branch RIGO 2 READER) Misc flash 2023-0 Yes [id number] 1{kit} 1 Kit Unive rs glucose 2-14 every 14 ity of sensor 00:00: (fourteen) [place] (FREESTYLE 00 days. Medical RIGO 2 Branch SENSOR) Kit flash 2023-0 Yes [id number] 1{kit} 1 Kit Unive rs glucose 2-14 daily. ity of scanning 00:00: [place] reader 00 Medical (FREESTYLE Branch RIGO 2 READER) Misc flash 2023-0 Yes [id number] 1{kit} 1 Kit Unive rs glucose 2-14 every 14 ity of sensor 00:00: (fourteen) [place] (FREESTYLE 00 days. Medical RIGO 2 Branch SENSOR) Kit flash 2023-0 Yes [id number] 1{kit} 1 Kit Unive rs glucose 2-14 daily. ity of scanning 00:00: [place] reader 00 Medical (FREESTYLE Branch RIGO 2 READER) Misc flash 2023-0 Yes [id number] 1{kit} 1 Kit Unive rs glucose 2-14 every 14 ity of sensor 00:00: (fourteen) [place] (FREESTYLE 00 days. Medical RIGO 2 Branch SENSOR) Kit flash 2023-0 Yes [id number] 1{kit} 1 Kit Unive rs glucose 2-14 daily. ity of scanning 00:00: [place] reader 00 Medical (FREESTYLE Branch RIGO 2 READER) Misc flash 2023-0 Yes [id number] 1{kit} 1 Kit Unive rs glucose 2-14 every 14 ity of sensor 00:00: (fourteen) [place] (FREESTYLE 00 days. Medical RIGO 2 Branch SENSOR) Kit flash 2023-0 Yes [id number] 1{kit} 1 Kit Unive rs glucose 2-14 daily. ity of scanning 00:00: [place] reader 00 Medical (FREESTYLE Branch RIGO 2 READER) Misc flash 2023-0 Yes [id number] 1{kit} 1 Kit Unive rs glucose 2-14 every 14 ity of sensor 00:00: (fourteen) [place] (FREESTYLE 00 days. Medical RIGO 2 Branch SENSOR) Kit HYDROcodone 2022-0 2023- No 1{tbl} 1 tablet, Univers -acetaminop 08-27 Oral, ity of hen (NORCO) 21:15: 20:14 ONCE, 1 [place] 10-325 mg 00 :00 dose, On Medica l tablet 1 Mon Branch tablet 08/27/22 at 1515, Routine flash 3-0 Yes [id number] 1{kit} 1 Kit Unive rs glucose 2-12 every 14 ity of sensor 00:00: (fourteen) [place] (FREESTYLE 00 days. Medical RIGO 2 Branch SENSOR) Kit flash 3-0 Yes [id number] 1{kit} 1 Kit Unive rs glucose 2-12 daily. ity of scanning 00:00: [place] reader 00 Medical (FREESTYLE Branch RIGO 2 READER) Misc flash 3-0 Yes [id number] 1{kit} 1 Kit Unive rs glucose 2-12 every 14 ity of sensor 00:00: (fourteen) [place] (FREESTYLE 00 days. Medical RIGO 2 Branch SENSOR) Kit flash 3-0 Yes [id number] 1{kit} 1 Kit Unive rs glucose 2-12 daily. ity of scanning 00:00: [place] reader 00 Medical (FREESTYLE Branch RIGO 2 READER) Misc flash 2022-0 2023- No [id number] 1{kit} 1 Kit Univ ers glucose 2-12 02-14 every 14 ity of sensor 00:00: 00:00 ([place]teen[place] (FREESTYLE 00 :00 days. Medical RIGO 2 Branch SENSOR) Kit flash 3-0 2023- No [id number] 1{kit} 1 Kit Univ ers glucose 2-12 02-14 daily. ity of scanning 00:00: 00:00 [place] reader 00 :00 Medical (FREESTYLE Branch RIGO 2 READER) Misc insulin 2022-0 2023- No 12U 12 Units, Univ ers regular 2-11 -11 Slow IV ity of human 02:00: 01:32 [place], [place] (HUMULIN R) 00 :00 ONCE, 1 Medic al injection dose, On Branch 12 Units 08/24/22 at 2000, Routine
Indicatio n for insulin: Hyperglyce pedro cefTRIAXone 2022- No 1000mg 1,000 mg, Univers (ROCEPHIN) 08-2511 IV ity of 1,000 mg in 01:30: 02:39 Piggyback, [place] NaCl 0.9% 00 :00 ONCE, 1 Medical (NS) 50 mL dose, On Branc h MINI-BAG 08/24/22 at 1930, Administer over 30 Minutes, 50 mL
Reas on for Anti-Infec tive: Documented Infection< br>Documen lester Infection Site: Urine<br&g t;Duration of Therapy: 7 days NaCl 0.9% 2022- No 1000mL at 999 Uni vers (NS) bolus 08-2511 mL/hr, ity of infusion 00:00: 02:51 1,000 [...] (NS) 50 mL 08/24/22 at IV 1715, SAHAAR piggyback FENTanyl PF 2022- No 50ug 50 mcg, Un ela (SUBLIMAZE 08-24 Slow IV ity o f (PF)) 01:15: 00:23 [facility], [place] injection 00 :00 ONCE, 1 Medical 50 mcg dose, On Branch Libra 08/23/22 at 1915, Routine insulin 2022-2022- No 10U 10 Units, Univ ers regular 08-2309 Slow IV ity of human 22:45: 22:13 [facility], [place] (HUMULIN R) 00 :00 ONCE, 1 Medic al injection dose, On Branch 10 Units Libra 08/23/22 at 1645, Routine
Indicatio n for insulin: Hyperglyce pedro NaCl 0.9% 2022- No 1000mL at 999 Uni vers (NS) bolus 08-23 02-10 mL/hr, ity of infusion 22:00: 00:01 1,000 mL, Tim [place] 1,000 mL 00 :00 IV Medical Infusion, Branch ONCE, 1 dose, On Libra 08/23/22 at 1600, SAH[place] proMETHazin 2022-0 2022- No 25mg 25 mg, IV Univers e 08-23-09 Piggyback, ity of (PHENERGAN) 21:30: 22:13 ONCE, 1 [place] 25 mg in 00 :00 dose, On Medical NaCl 0.9% Libra 08/23/22 Bran ch (NS) 50 mL at 1530, IV SAHARA piggyback enoxaparin 2022-0 Yes 40mg 40 mg, Unive rs (LOVENOX) 2-02 Subcutaneo ity of injection 23:00: [place], [place]ILY, [place] 40 mg 00 First dose Medical on Libra Branch 08/16/22 at 1700, Until Discontinu ed, Routine HYDROmorpho 2023-0 Yes 4mg Take 4 mg U nivers ne 4 mg 2-02 by mouth ity of tablet 19:25: in the [place] [address] morning Medical and 4 mg Branch at noon and 4 mg in the evening. insulin NPH 3-0 Yes 45U inject 45 U nivers human 2-02 Units ity of isophane 19:25: [place] (NOVOLIN N 48 skin 2 Medical SC) (two) Branch times daily. HYDROmorpho 2023-0 Yes 4mg Take 4 mg U nivers ne 4 mg 2-02 by mouth ity of tablet 19:25: in the [place] [address] morning Medical and 4 mg Branch at [...] mouth ity of tablet 19:25: in the [place] [address] morning Medical and 4 mg Branch at [...] mouth ity of tablet 19:25: in the [place] [address] morning Medical and 4 mg Branch at [...] mouth ity of tablet 19:25: in the [place] [address] morning Medical and 4 mg Branch at [...] mouth ity of tablet 19:25: in the [place] [address] morning Medical and 4 mg Branch at [...] mouth ity of tablet 19:25: in the [place] 48 morning Medical and 4 mg Branch [...] mouth ity of tablet 19:25: in the [place] [address] morning Medical and 4 mg Branch at [...] mouth ity of tablet 19:25: in the [place] [address] morning Medical and 4 mg Branch at [...] mouth ity of tablet 19:25: in the [place] [address] morning Medical and 4 mg Branch at [...] mouth ity of tablet 19:25: in the [place] [address] morning Medical and 4 mg Branch at [...] mouth ity of tablet 19:25: in the [place] [address] morning Medical and 4 mg Branch at noon and 4 mg in the evening. insulin NPH 2023-0 Yes 45U inject 45 U nivers human 2-02 Units ity of isophane 19:25: [place] (NOVOLIN N 48 skin 2 Medical SC) (two) Branch times daily. magnesium 2023-0 Yes 400mg 400 mg, Univ ers oxide 08-16 Oral, BID, ity of (MAG-OX 14:00: [place] 400) tablet 00 on Libra Medica l 400 mg 08/16/22 at Branch 0800, Until Discontinu ed, Routine Sliding Yes Subcutaneo Univ ers Scale 2-02 us, TID ity of Insulin - 14:00: MEALS, [place] Lispro 00 First dose Medical (HumaLOG) + on Libra Branch Fsbg 08/16/22 at Testing 0800, Until Discontinu ed, Routine magnesium 0 2022- No 2g 2 g, IV [facility] ers sulfate in 08-16 Piggyback, it y of water 2 14:00: 15:41 Administer Tim as gram/50 mL 00 :00 over 60 Medica l (4 %) Minutes, Branch infusion 2 ONCE, 1 g dose, On Libra 08/16/22 at 0800, Routine HYDROcodone 0 Yes 1{tbl} 1 tablet, Univers -acetaminop 08-16 Oral, ity of hen (NORCO) 13:47: Q8HPRN, [place] 10-325 mg 52 Starting Medica l tablet 1 on [facility] tablet 08/16/22 at 0747, Until Discontinu ed, Routine, Pain (scale 4-6) glipiZIDE Yes 5mg 5 mg, Univers (GLUCOTROL) 08-16 Oral, ity of tablet 5 mg 13:30: BIDAC, [place] 00 First dose Medical on Libra Branch 08/16/22 at 0730, Until Discontinu ed, Routine NaCl 0.9% Yes 1000mL at 150 Univ ers (NS) IV 2-02 mL/hr, IV ity of infusion 09:15: Infusion, [place] 1,000 mL 00 CONTINUOUS Medic al , Starting Branch on Libra 08/16/22 at 0315, Until Discontinu ed, Routine NaCl 0.9% 0 2022- No 1000mL at 999 Uni vers (NS) bolus 08-1602 mL/hr, ity of infusion 09:00: 10:08 1,000 mL, Tim as 1,000 mL 00 :51 IV Medical Infusion, Branch ONCE, 1 dose, On Libra 08/16/22 at 0300, STAT sennosides Yes 8.6mg 8.6 mg, Uni vers (SENOKOT) 08-16 Oral, BID, ity of tablet 8.6 08:30: First dose [place] mg 00 on Libra Medical 08/16/22 at Branch 0230, Until Discontinu ed, Routine docusate Yes 100mg 100 mg, Unive rs (COLACE) 02 Oral, BID, ity o f capsule 100 08:30: First dose [place] mg 00 on Libra Medical 08/16/22 at Branch 0230, Until Discontinu ed, Routine insulin NPH Yes 20U 20 Units, U nivers and regular 08-16 Subcutaneo it y of human 70-30 08:30: us, BIDAC, [place] (7030 00 First dose Medical U-100 (after Branch INSULIN) last 100 unit/mL modificati (70-30) on) on Libra injection 08/16/22 at 20 Units 0230, Until Discontinu ed, Routine proCHLORper Yes 10mg 10 mg, Univ ers azine 08-16 Slow IV ity of (COMPAZINE) 08:19: [place], [place] injection 04 Q6HPRN, Medical 10 mg Starting Branch on Sat08/16/22 at 0219, Until Discontinu ed, Routine, Nausea and Vomiting (N/V) FENTanyl PF Yes 50ug 50 mcg, Uni vers (SUBLIMAZE 08-16 Slow IV ity of (PF)) 05:33: [place], [place] injection 35 Q4HPRN, Medical 50 mcg Starting Branch on Sat08/15/22 at 2333, Until Discontinu ed, Routine, Pain (scale 7-10) sodium 2022- No 30g 30 g, Univers polystyrene 08-16 Oral, ity of sulfonate 03:15: 05:11 [place]CE, 1 [place] (KAYEXALATE 00 :00 dose, On [facility] efrain ) Sat08/15/22 Branch gram/60 mL at 2115, suspension Routine 30 g insulin 2022- No 5U 5 Units, Unive rs regular 08-16 Slow IV ity of human 02:15: 01:10 [place], [place] (HUMULIN R) 00 :00 ONCE, 1 Medic al injection 5 dose, On Bran ch Units 08/15/22 at 2015, STAT
In dication for insulin: Hyperglyce pedro cefTRIAXone 2022- No 1000mg 1,000 mg, Univers (ROCEPHIN) 08-16 IV ity of 1,000 mg in 01:45: 02:27 Piggyback, [place] NaCl 0.9% 00 :00 ONCE, 1 Medical (NS) 50 mL dose, On [facility] h MINI-BAG 08/15/22 at 1945, Administer over 30 Minutes, 50 mL
R keegan for Anti-Infec tive: Documented Infection< br>Documen lester Infection Site: Urine<br&g t;Duration of Therapy: Other (see Comments) acetaminoph 2022- No 1000mg 1,000 mg, Univers en 08-16 Oral, ity of (TYLENOL) 01:30: 01:28 [place]CE, [place] tablet 00 :00 dose, On Medical 1,000 mg 08/15/22 Bran h at 1930, SAHARA iopamidol 2022- No [id number] 80mL 80 mL, U nivers (ISOVUE 08-16 Intravenou ity o f 370-500 mL) 00:45: 00:45 s, ONCE, 1 [place] injection 00 :00 dose, On Medica l 80 mL 08/15/22 Branch at 1845, Routine FENTanyl PF 2022- No 75ug 75 mcg, Un ela (SUBLIMAZE 08-15 Slow IV ity o f (PF)) 22:45: 22:19 [place], [place] injection 00 :00 ONCE, 1 Medical 75 mcg dose, On Branch 08/15/22 at 1645, STAT insulin 2022- No 10U 10 Units, Univ ers regular 08-15 Slow IV ity of human 22:30: 21:28 [place], [place] (HUMULIN R) 00 :00 ONCE, 1 Medic al injection dose, On Branch 10 Units 08/15/22 at 1630, STAT
In dication for insulin: Hyperglyce pedro NaCl 0.9% 2022- No 1000mL at 999 Uni vers (NS) bolus 2-01 02-01 mL/hr, ity of infusion 22:30: 23:40 1,000 mL, [place] 1,000 mL 00 :00 IV Medical Infusion, [place] ONCE, 1 dose, On Sat08/15/22 at 1630, STAT lisinopriL 3-0 Yes [id number] 2.5mg Take 1 [facility] 2.5 mg 1-01 tablet by ity of tablet 00:00: mouth in [place] 00 the Medical morning. Branch lisinopriL 3-0 Yes [id number] 2.5mg Take 1 [facility] 2.5 mg 1-01 tablet by ity of tablet 00:00: mouth in [place] the Medical morning. Branch lisinopriL 3-0 Yes [id number] 2.5mg Take 1 [facility] 2.5 mg 1-01 tablet by ity of tablet 00:00: mouth in [place] the Medical morning. Branch lisinopriL 3-0 Yes [id number] 2.5mg Take 1 [facility] 2.5 mg 1-01 tablet by ity of tablet 00:00: mouth in [place] the Medical morning. Branch lisinopriL 3-0 Yes [id number] 2.5mg Take 1 [facility] 2.5 mg 1-01 tablet by ity of tablet 00:00: mouth in [place] the Medical morning. Branch lisinopriL 3-0 Yes [id number] 2.5mg Take 1 [facility] 2.5 mg 1-01 tablet by ity of tablet 00:00: mouth in [place] the Medical morning. Branch lisinopriL 2023-0 Yes [id number] 2.5mg Take 1 [facility] 2.5 mg 1-01 tablet by ity of tablet 00:00: mouth in [place] the Medical morning. Branch lisinopriL 2023-0 Yes [id number] 2.5mg Take 1 [facility] 2.5 mg 1-01 tablet by ity of tablet 00:00: mouth in [place] the Medical morning. Branch lisinopriL 2023-0 Yes [id number] 2.5mg Take 1 [facility] 2.5 mg 1-01 tablet by ity of tablet 00:00: mouth in [place] the Medical morning. Branch lisinopriL 2023-0 Yes [id number] 2.5mg Take 1 [facility] 2.5 mg 1-01 tablet by ity of tablet 00:00: mouth in [place] 00 the Medical morning. Branch lisinopriL 2023-0 Yes [id number] 2.5mg Take 1 [facility] 2.5 mg 1-01 tablet by ity of tablet 00:00: mouth in [place] the Medical morning. Branch lisinopriL 2023-0 Yes [id number] 2.5mg Take 1 [facility] 2.5 mg 1-01 tablet by ity of tablet 00:00: mouth in [place] the Medical morning. Branch lisinopriL 2023-0 Yes [id number] 2.5mg Take 1 [facility] 2.5 mg 1-01 tablet by ity of tablet 00:00: mouth in [place] the Medical morning. Branch lisinopriL 2023-0 Yes [id number] 2.5mg Take 1 [facility] 2.5 mg 1-01 tablet by ity of tablet 00:00: mouth in [place] the Medical morning. Branch lisinopriL 2023-0 Yes [id number] 2.5mg Take 1 [facility] 2.5 mg 1-01 tablet by ity of tablet 00:00: mouth in [place] the Medical morning. Branch lisinopriL 2023-0 Yes [id number] 2.5mg Take 1 [facility] 2.5 mg 1-01 tablet by ity of tablet 00:00: mouth in [place] the Medical morning. Branch lisinopriL 2023-0 Yes [id number] 2.5mg Take 1 [facility] 2.5 mg 1-01 tablet by ity of tablet 00:00: mouth in [place] the Medical morning. Branch lisinopriL 2023-0 Yes [id number] 2.5mg Take 1 [facility] 2.5 mg 1-01 tablet by ity of tablet 00:00: mouth in [place] the Medical morning. Branch lisinopriL 2023-0 Yes [id number] 2.5mg Take 1 [facility] 2.5 mg 1-01 tablet by ity of tablet 00:00: mouth in [place] the Medical morning. Branch lisinopriL 2023-0 Yes [id number] 2.5mg Take 1 [facility] 2.5 mg 1-01 tablet by ity of tablet 00:00: mouth in [place] 00 the Medical morning. Branch lisinopriL 2023-0 Yes [id number] 2.5mg Take 1 [facility] 2.5 mg 1-01 tablet by ity of tablet 00:00: mouth in [place] the Medical morning. Branch lisinopriL 2023-0 Yes [id number] 2.5mg Take 1 [facility] 2.5 mg 1-01 tablet by ity of tablet 00:00: mouth in [place] the Medical morning. Branch lisinopriL 2023-0 Yes [id number] 2.5mg Take 1 [facility] 2.5 mg 1-01 tablet by ity of tablet 00:00: mouth in [place] the Medical morning. Branch lisinopriL 2023-0 Yes [id number] 2.5mg Take 1 [facility] 2.5 mg 1-01 tablet by ity of tablet 00:00: mouth in [place] the Medical morning. Branch lisinopriL 2023-0 Yes [id number] 2.5mg Take 1 [facility] 2.5 mg 1-01 tablet by ity of tablet 00:00: mouth in [place] the Medical morning. Branch lisinopriL 2023-0 Yes [id number] 2.5mg Take 1 [facility] 2.5 mg 1-01 tablet by ity of tablet 00:00: mouth in [place] the Medical morning. Branch lisinopriL 2023-0 Yes [id number] 2.5mg Take 1 [facility] 2.5 mg 1-01 tablet by ity of tablet 00:00: mouth in [place] the Medical morning. Branch lisinopriL 2023-0 Yes [id number] 2.5mg Take 1 [facility] 2.5 mg 1-01 tablet by ity of tablet 00:00: mouth in [place] the Medical morning. Branch lisinopriL 2023-0 Yes [id number] 2.5mg Take 1 [facility] 2.5 mg 1-01 tablet by ity of tablet 00:00: mouth in [place] the Medical morning. Branch lisinopriL 2023-0 Yes [id number] 2.5mg Take 1 [facility] 2.5 mg 1-01 tablet by ity of tablet 00:00: mouth in [place] the Medical morning. Branch lisinopriL 2023-0 Yes [id number] 2.5mg Take 1 [facility] 2.5 mg 1-01 tablet by ity of tablet 00:00: mouth in [place] the Medical morning. Branch lisinopriL 2023-0 Yes [id number] 2.5mg Take 1 [facility] 2.5 mg 1-01 tablet by ity of tablet 00:00: mouth in [place] the Medical morning. Branch lisinopriL 2023-0 Yes [id number] 2.5mg Take 1 [facility] 2.5 mg 1-01 tablet by ity of tablet 00:00: mouth in [place] the Medical morning. Branch lisinopriL 2023-0 Yes [id number] 2.5mg Take 1 [facility] 2.5 mg 1-01 tablet by ity of tablet 00:00: mouth in [place] the Medical morning. Branch lisinopriL 2023-0 Yes [id number] 2.5mg Take 1 [facility] 2.5 mg 1-01 tablet by ity of tablet 00:00: mouth in [place] the Medical morning. Branch lisinopriL 2023-0 Yes [id number] 2.5mg Take 1 [facility] 2.5 mg 1-01 tablet by ity of tablet 00:00: mouth in [place] the Medical morning. Branch lisinopriL 2023-0 Yes [id number] 2.5mg Take 1 [facility] 2.5 mg 1-01 tablet by ity of tablet 00:00: mouth in [place] the Medical morning. Branch lisinopriL 2023-0 Yes [id number] 2.5mg Take 1 [facility] 2.5 mg 1-01 tablet by ity of tablet 00:00: mouth in [place] the Medical morning. Branch lisinopriL 2023-0 Yes [id number] 2.5mg Take 1 [facility] 2.5 mg 1-01 tablet by ity of tablet 00:00: mouth in [place] the Medical morning. Branch lisinopriL 2023-0 Yes [id number] 2.5mg Take 1 [facility] 2.5 mg 1-01 tablet by ity of tablet 00:00: mouth in [place] the Medical morning. Branch lisinopriL 2023-0 Yes [id number] 2.5mg Take 1 [facility] 2.5 mg 1-01 tablet by ity of tablet 00:00: mouth in [place] the Medical morning. Branch lisinopriL 2023-0 Yes [id number] 2.5mg Take 1 [facility] 2.5 mg 1-01 tablet by ity of tablet 00:00: mouth in [place] the Medical morning. Branch lisinopriL 2023-0 Yes [id number] 2.5mg Take 1 [facility] 2.5 mg 1-01 tablet by ity of tablet 00:00: mouth in [place] 00 the Medical morning. [place] lisinopriL Yes [id number] 2.5mg Take 1 [facility] 2.5 mg 1-01 tablet by ity of tablet 00:00: mouth in [place] 00 the Medical morning. [place] lisinopriL Yes [id number] 2.5mg Take 1 [facility] 2.5 mg 1-01 tablet by ity of tablet 00:00: mouth in [place] 00 the Medical morning. [place] Nitrofurant 2021-07 No 100mg 100 mg, U nivers oin&Nit. 07-2213 [...] ity of 1,000 mg in 21:15: 21:34 [place], [place] NaCl 0.9% 00 :48 ONCE, 1 Medical (NS) 50 mL dose, On Branc h MINI-BAG Sat05/21/22 at 1515, Administer over [...] times Medical daily as Branch needed. HYDROmorpho 2021- Yes 4mg Take 4 mg [...] times Medical daily as Branch needed. HYDROmorpho 2021- Yes 4mg Take 4 mg U nivers ne 4 mg 1-07 by mouth 3 ity of tablet 17:55: (three) [place] 40 times Medical daily as Branch needed. HYDROmorpho 2021- Yes 4mg Take 4 mg U nivers ne 4 mg 1-07 by mouth 3 ity of tablet 17:55: (three) [place] 40 times Medical daily as Branch needed. HYDROmorpho 2021- Yes 4mg Take 4 mg U nivers ne 4 mg 1-07 by mouth 3 ity of tablet 17:55: (three) [place] 40 times Medical daily as Branch needed. HYDROmorpho 2021- Yes 4mg Take 4 mg U nivers ne 4 mg 1-07 by mouth 3 ity of tablet 17:55: (three) [place] 40 times Medical daily as Branch needed. HYDROmorpho 2021-07 Yes 4mg Take 4 mg U nivers ne 4 mg 1-07 by mouth 3 ity of tablet 17:55: (three) [place] 40 times Medical daily as Branch needed. HYDROmorpho 2021- Yes 4mg Take 4 mg [...] Sliding 2021-07 Yes Subcutaneo Univ ers Scale 1-07 us, TID ity of Insulin - 03:00: MEALS+HS, [place] as Lispro 00 First dose Medical (HumaLOG) + on [facility] Fsbg 05/20/22 at Testing 2100, Until Discontinu ed, Routine FENTanyl PF 2021-07- No 75ug 75 mcg, [facility] (SUBLIMAZE 07-21 Slow IV ity o f (PF)) 01:15: 00:23 [place], [place] injection 00 :00 ONCE, 1 Medical 75 mcg dose, On [facility] 05/20/22 at 1915, Routine dextrose 2021-07 Yes 250mL 250 mL, IV [facility] 10% (D10W) 07-21 Infusion, ity of bolus 01:12: PRN - SEE [place] infusion 23 INSTRUCTIO Medic al 250 mL , Branch Administer over 60 Minutes, Other, If blood glucose is < or = 70 mg/dL and patient is unable to swallow or has mental status changes, Starting on [place] 05/20/22 at 1912
If blood glucose is [...] KIT) 20 Starting Medical injection 1 on [facility] mg 05/20/22 at 1912, Until Discontinu ed, SAHARA, Blood Glucose < or = 70 mg/dL and patient is unable to swallow or has mental changes. HYDROmorpho 2021-07 Yes 4mg 4 mg, Unive rs ne 07-21 Oral, ity of (DILAUDID) 01:08: Q6HPRN, [place] tablet 4 mg 42 Starting Medi efrain on [facility] 05/20/22 at 1908, Until Discontinu [...] 07-21 Oral, ity of (TYLENOL) 01:05: Q6HPRN, [place] tablet 650 57 Starting Medic al mg on Sun Branch 05/20/22 at 1905, Until Discontinu ed, Routine, Pain (scale 1-3) NaCl 0.9% 2021-07- No 1000mL at 999 Uni vers (NS) bolus 07-2107 mL/hr, ity of infusion 00:30: 00:35 1,000 mL, Tim as 1,000 mL 00 :00 IV Medical Infusion, Branch ONCE, 1 dose, On [place] 05/20/22 at 1830, STAT Nitrofurant 2021-07- No [id number] 100mg Take 1 Univers oin&Nit. 07-21 1115 capsule by ity of Macrocryst 00:00: 05:59 mouth in [place] 100 mg 00 :00 the Medical capsule morning and 1 capsule in the evening. Do all this for 7 days. NaCl 0.9% 2021-07 No 1000mL at 999 Uni vers (NS) bolus 07-20 mL/hr, ity of infusion 23:45: 00:36 1,000 mL, Tim as 1,000 mL 00 :00 IV Medical Infusion, Branch ONCE, 1 dose, On [place] 05/20/22 at 1745, [place] FENTanyl PF 2021-07- No 75ug 75 mcg, [facility] (SUBLIMAZE 07-20 Slow IV ity o f (PF)) 23:45: 23:19 [place], [place] injection 00 :00 ONCE, 1 Medical 75 mcg dose, On Branch [place] 05/20/22 at 1745, Routine iopamidol 2021-07- No [id number] 85mL 85 mL, Univers (ISOVUE 0-30 10-30 [...] at 2045, piggyback [place] cefdinir 2021-07 Yes [id number] 300mg Take 1 [facility] 300 mg 0-29 capsule by ity of capsule 00:00: mouth [place] 00 every 12 Medical (twelve) Branch hours. cefdinir 2021-07 Yes [id number] 300mg Take 1 [facility] 300 mg 0-29 capsule by ity of capsule 00:00: mouth [place] 00 every 12 Medical (twelve) Branch hours. cefdinir 2021-07- No [id number] 300mg Take 1 U nivers 300 mg 0-29 11-07 capsule by ity of capsule 00:00: 00:00 mouth [place] 00 :00 every 12 Medical (twelve) Branch hours. HYDROmorpho 2021-07 Yes 4mg Take 4 mg U nivers ne 4 mg 0-23 by mouth 3 ity of tablet 12:52: (three) [place] 28 times Medical daily as Branch needed. HYDROmorpho 2021-07 Yes 4mg Take 4 mg U nivers ne 4 mg 0-23 by mouth 3 ity of tablet 12:52: (three) [place] 28 times Medical daily as Branch needed. HYDROmorpho 2021-07 Yes 4mg Take 4 mg U nivers ne 4 mg 0-23 by mouth 3 ity of tablet 12:52: (three) [place] 28 times Medical daily as Branch needed. HYDROmorpho 2021-07 Yes 4mg Take 4 mg U nivers ne 4 mg 0-23 by mouth 3 ity of tablet 12:52: (three) [place] 28 times Medical daily as Branch needed. HYDROmorpho 2021-07- No .5mg 0.5 mg, [facility] ne 0-05-06 Slow IV ity of (DILAUDID) 03:15: 03:23 [place], [place] injection 00 :00 ONCE, 1 Medical 0.5 mg dose, On Branch 05/05/22 at 2215, Routine
Use approved by (Faculty): [employer] PROVIDER HYDROmorpho 2021-07- No .5mg 0.5 mg, [facility] ne 0-05-05 Slow IV ity of (DILAUDID) 02:00: 02:00 [...] 1700, Until Discontinu ed, Routine ceFEPIme 2021-07- No 2000mg 2,000 mg, U nivers (MAXIPIME) 0-05-09 IV ity of 2,000 mg in 21:00: 20:59 [place], [place] NaCl 0.9% 00 :00 Q8H ABX, [...] of e 0.125 % 18:30: dose on [place] (DAKIN'S Sat Medical SOLUTION) 05/04/22 Branch solution at 1330, Until Discontinu ed, Routine ceFEPIme 2021-07- No 2000mg 2,000 mg, U nivers (MAXIPIME) 0-05-04 IV ity of 2,000 mg in 13:15: 14:55 [place], [place] NaCl 0.9% 00 :00 ONCE, 1 Medical (NS) 50 mL dose, On Bran h MINI-BAG Sat05/04/22 at 0815, Administer over [...] 0- Oral, ity of (TYLENOL) 12:08: Q6HPRN, [place] tablet 650 12 Starting Medic al mg [...] 0 IV ity of (PHENERGAN) 12:07: Piggyback, [place] 12.5 mg in 04 Q4HPRN, Medica l NaCl 0.9% Starting Branch (NS) 50 mL on Sat IV 05/04/22 piggyback at 0707, Until Discontinu ed, Routine, Nausea and Vomiting (N/V) dextrose 2021-07 Yes 250mL 250 mL, IV [facility] 10% (D10W) 0-21 Infusion, ity of bolus 11:02: PRN - SEE [place] infusion 05 INSTRUCTIO Medic al 250 mL [...] en Oral, ity of (TYLENOL) 11:01: Q6HPRN, [place] tablet 650 26 Starting Medic al mg on Fri Branch 05/04/22 at 0601, Until Discontinu ed, Routine, Pain (scale 1-3) iopamidol 2021-07- No [id number] 100mL 100 mL, Univers (ISOVUE 05-04 Intravenou [...] mL Fri IV 05/04/22 piggyback at 0115, SAHRAA insulin Yes 26U 26 Units, Unive rs glargine 8-14 Subcutaneo ity o f (LANTUS 02:00: us, [facility], [place] U-100) 00 First dose Medical injection (after Branch 26 Units last modificati on) on 02/24/22 at 2100, Until Discontinu ed, Routine insulin No 24U 24 Units, [facility] ers glargine 02-23 Subcutaneo ity of (LANTUS 20:38: 20:43 [place], [place], [place] U-100) 00 :00 1 dose, On Medical injection Fri Branch 24 Units 02/23/22 at 1545, [place] sennosides- Yes 1{tbl} 1 tablet, [facility] docusate 02-23 Oral, ity of sodium 14:00: DAILY, [place] (SENOKOT-S) 00 First dose Me dical 8.6-50 mg on Sat Branch per tablet 02/23/22 at 1 tablet 0900, Until Discontinu ed, Routine polyethylen Yes 17g 17 g, [facility] rs e glycol 02-23 Oral, ity of [...] ty of injection 8 02:00: 12:34 us, [facility], [place] Units 00 :51 First dose Medical (after Branch last modificati on) on [place] 02/22/22 at 2100, [facility] repaglinide 2022-0 Yes [id number] .5mg Take 1 Univers 0.5 mg 8-12 tablet by ity of tablet 00:00: mouth in [place] [address] the Medical morning Branch and 1 tablet at noon and 1 tablet in the evening. Take before meals. sodium 2022-0 Yes [id number] Apply to [place] hypochlorit 8-12 area(s) ity o f e 0.25% 00:00: daily. [place] [facility] 00 [facility] Branch repaglinide 2022-0 Yes [id number] .5mg Take 1 Univers 0.5 mg 8-12 tablet by ity of tablet 00:00: mouth in [place] [address] the Medical morning Branch and 1 tablet at noon and 1 tablet in the evening. Take before meals. sodium 2022-0 Yes [id number] Apply to [place] hypochlorit 8-12 area(s) ity o f e 0.25% 00:00: daily. [address] Branch repaglinide 2022-0 Yes [id number] .5mg Take 1 Univers 0.5 mg 8-12 tablet by ity of tablet 00:00: mouth in [place] [address] the [facility] morning [place] and 1 tablet at noon and 1 tablet in the evening. Take before meals. sodium 2022-0 Yes [id number] Apply to [place] hypochlorit 8-12 area(s) ity o f e 0.25% 00:00: daily. [address] Branch repaglinide 2022-0 Yes [id number] .5mg Take 1 Univers 0.5 mg 8-12 tablet by ity of tablet 00:00: mouth in [address] morning [place] and 1 tablet at noon and 1 tablet in the evening. Take before meals. sodium 2022-0 Yes [id number] Apply to [place] hypochlorit 8-12 area(s) ity o f e 0.25% 00:00: daily. [address] Branch repaglinide 2022-0 Yes [id number] .5mg Take 1 Univers 0.5 mg 8-12 tablet by ity of tablet 00:00: mouth in [place] [address] the [facility] morning [place] and 1 tablet at noon and 1 tablet in the evening. Take before meals. sodium 2022-0 Yes [id number] Apply to [place] hypochlorit 8-12 area(s) ity o f e 0.25% 00:00: daily. [place] [facility] 00 Medical Branch repaglinide 2022-0 Yes [id number] .5mg Take 1 Univers 0.5 mg 8-12 tablet by ity of tablet 00:00: mouth in [place] [address] the [facility] morning [place] and 1 tablet at noon and 1 tablet in the evening. Take before meals. sodium 2022-0 Yes [id number] Apply to [place] hypochlorit 8-12 area(s) ity o f e 0.25% 00:00: daily. [address] Branch repaglinide 2022-0 Yes [id number] .5mg Take 1 Univers 0.5 mg 8-12 tablet by ity of tablet 00:00: mouth in [address] morning [place] and 1 tablet at noon and 1 tablet in the evening. Take before meals. sodium 2022-0 Yes [id number] Apply to [place] [facility] hypochlorit 8-12 area(s) ity o f e 0.25% 00:00: daily. [address] Branch repaglinide 2-0 Yes [id number] .5mg Take 1 Univers 0.5 mg 8-12 tablet by ity of tablet 00:00: mouth in [place] [address] the [facility] and 1 tablet at noon and 1 tablet in the evening. Take before meals. sodium 2022-0 Yes [id number] Apply to [place] hypochlorit 8-12 area(s) ity o f e 0.25% 00:00: daily. [address] Branch repaglinide 2022-0 Yes [id number] .5mg Take 1 Univers 0.5 mg 8-12 tablet by ity of tablet 00:00: mouth in [place] [address] the [facility] morning [place] and 1 tablet at noon and 1 tablet in the evening. Take before meals. sodium 2022-0 Yes [id number] Apply to [place] hypochlorit 8-12 area(s) ity o f e 0.25% 00:00: daily. [place] [facility] 00 [facility] Branch repaglinide 2022-0 Yes [id number] .5mg Take 1 Univers 0.5 mg 8-12 tablet by ity of tablet 00:00: mouth in [address] morning [place] and 1 tablet at noon and 1 tablet in the evening. Take before meals. sodium 2022-0 Yes [id number] Apply to [place] hypochlorit 8-12 area(s) ity o f e 0.25% 00:00: daily. [place] [facility] repaglinide 2021-0 Yes [id number] .5mg Take 1 Univers 0.5 mg 8-12 tablet by ity of tablet 00:00: mouth in [address] and 1 tablet at noon and 1 tablet in the evening. Take before meals. sodium 2-0 Yes [id number] Apply to [place] hypochlorit 8-12 area(s) ity o f e 0.25% 00:00: daily. [place] [facility] repaglinide 2021-0 Yes [id number] .5mg Take 1 Univers 0.5 mg 8-12 tablet by ity of tablet 00:00: mouth in [address] and 1 tablet at noon and 1 tablet in the evening. Take before meals. sodium 2022-0 Yes [id number] Apply to [facility] hypochlorit 8-12 area(s) ity o f e 0.25% 00:00: daily. [place] solution [facility] sodium 2022-0 Yes [id number] Apply to [facility] hypochlorit 8-12 area(s) ity o f e 0.25% 00:00: daily. [place] solution [facility] sodium 2022-0 Yes [id number] Apply to [facility] hypochlorit 8-12 area(s) ity o f e 0.25% 00:00: daily. [place] solution [facility] sodium 2022-0 Yes [id number] Apply to [facility] hypochlorit 8-12 area(s) ity o f e 0.25% 00:00: daily. [place] solution [facility] sodium 2022-0 Yes [id number] Apply to [facility] hypochlorit 8-12 area(s) ity o f e 0.25% 00:00: daily. [place] solution [facility] sodium 2022-0 Yes [id number] Apply to [facility] hypochlorit 8-12 area(s) ity o f e 0.25% 00:00: daily. [place] solution 00 Medical Branch sodium 2022-0 Yes [id number] Apply to [place] hypochlorit 8-12 area(s) ity o f e 0.25% 00:00: daily. [place] solution 00 Medical Branch sodium 2022-0 Yes [id number] Apply to [place] hypochlorit 8-12 area(s) ity o f e 0.25% 00:00: daily. [place] solution 00 Medical Branch sodium 2022-0 Yes [id number] Apply to [place] hypochlorit 8-12 area(s) ity o f e 0.25% 00:00: daily. [place] solution 00 Medical Branch sodium 2022-0 Yes [id number] Apply to [place] hypochlorit 8-12 area(s) ity o f e 0.25% 00:00: daily. [place] solution 00 Medical Branch sodium 2022-0 Yes [id number] Apply to U nivers hypochlorit 8-12 area(s) ity o f e 0.25% 00:00: daily. [place] solution 00 Medical Branch sodium 2022-0 Yes [id number] Apply to [facility] hypochlorit 8-12 area(s) ity o f e 0.25% 00:00: daily. [place] solution 00 Medical Branch sodium 2022-0 Yes [id number] Apply to [place] hypochlorit 8-12 area(s) ity o f e 0.25% 00:00: daily. [place] solution 00 Medical Branch sodium 2022-0 Yes [id number] Apply to [facility] hypochlorit 8-12 area(s) ity o f e 0.25% 00:00: daily. [place] solution 00 Medical Branch sodium 2022-0 Yes [id number] Apply to [place] hypochlorit 8-12 area(s) ity o f e 0.25% 00:00: daily. [place] solution 00 Medical Branch sodium 2022-0 Yes [id number] Apply to [place] hypochlorit 8-12 area(s) ity o f e 0.25% 00:00: daily. [place] solution 00 Medical Branch sodium 2022-0 Yes [id number] Apply to [place] hypochlorit 8-12 area(s) ity o f e 0.25% 00:00: daily. [place] solution 00 Medical Branch sodium 2022-0 Yes [id number] Apply to [place] hypochlorit 8-12 area(s) ity o f e 0.25% 00:00: daily. [place] solution 00 Medical Branch sodium 2022-0 Yes [id number] Apply to [place] hypochlorit 8-12 area(s) ity o f e 0.25% 00:00: daily. [place] solution 00 Medical Branch sodium 2022-0 Yes [id number] Apply to Un eal hypochlorit 8-12 area(s) ity o f e 0.25% 00:00: daily. [place] solution 00 Medical Branch sodium 2022-0 Yes [id number] Apply to [facility] hypochlorit 8-12 area(s) ity o f e 0.25% 00:00: daily. [place] solution 00 Medical Branch sodium 2022-0 Yes [id number] Apply to [place] hypochlorit 8-12 area(s) ity o f e 0.25% 00:00: daily. [place] solution 00 Medical Branch sodium 2022-0 Yes [id number] Apply to [facility] [place] hypochlorit 8-12 area(s) ity o f e 0.25% 00:00: daily. [place] solution 00 Medical Branch sodium 2022-0 Yes [id number] Apply to [place] hypochlorit 8-12 area(s) ity o f e 0.25% 00:00: daily. [place] solution 00 Medical Branch sodium 2022-0 Yes [id number] Apply to [place] hypochlorit 8-12 area(s) ity o f e 0.25% 00:00: daily. [place] solution 00 Medical Branch sodium 2022-0 Yes [id number] Apply to [place] hypochlorit 8-12 area(s) ity o f e 0.25% 00:00: daily. [place] solution 00 Medical Branch sodium 2022-0 Yes [id number] Apply to Univers hypochlorit 8-12 105 area(s) ity o f e 0.25% 00:00: daily. [place] solution 00 Medical Branch sodium 2022-0 Yes [id number] Apply to Univers hypochlorit 8-12 105 area(s) ity o f e 0.25% 00:00: daily. [place] solution 00 Medical Branch sodium 2-0 Yes [id number] Apply to Univers hypochlorit 8-12 105 area(s) ity o f e 0.25% 00:00: daily. [place] solution 00 Medical Branch sodium 2022-0 Yes [id number] Apply to Univers hypochlorit 8-12 105 area(s) ity o f e 0.25% 00:00: daily. [place] solution 00 Medical Branch sodium 2022-0 Yes [id number] Apply to Univers hypochlorit 8-12 105 area(s) ity o f e 0.25% 00:00: daily. [place] solution 00 Medical Branch sodium 2-0 Yes [id number] Apply to Univers hypochlorit 8-12 105 area(s) ity o f e 0.25% 00:00: daily. [place] solution 00 Medical Branch sodium 2-0 Yes [id number] Apply to Univers hypochlorit 8-12 105 area(s) ity o f e 0.25% 00:00: daily. [place] solution 00 Medical Branch sodium 2022-0 Yes [id number] Apply to Univers hypochlorit 8-12 105 area(s) ity o f e 0.25% 00:00: daily. [place] solution 00 Medical Branch sodium 2022-0 Yes [id number] Apply to Univers hypochlorit 8-12 105 area(s) ity o f e 0.25% 00:00: daily. [place] solution 00 Medical Branch sodium 2022-0 Yes [id number] Apply to Univers hypochlorit 8-12 105 area(s) ity o f e 0.25% 00:00: daily. [place] solution 00 Medical Branch sodium 2022-0 Yes [id number] Apply to Univers hypochlorit 8-12 105 area(s) ity o f e 0.25% 00:00: daily. [place] solution 00 Medical Branch sodium 2022-0 Yes [id number] Apply to Univers hypochlorit 8-12 105 area(s) ity o f e 0.25% 00:00: daily. [place] solution 00 Medical Branch sodium 2022-0 Yes [id number] Apply to Univers hypochlorit 8-12 105 area(s) ity o f e 0.25% 00:00: daily. [place] solution 00 Medical Branch sodium 2022-0 Yes [id number] Apply to Univers hypochlorit 8-12 105 area(s) ity o f e 0.25% 00:00: daily. [place] solution 00 Medical Branch sodium 2022-0 Yes [id number] Apply to Univers hypochlorit 8-12 105 area(s) ity o f e 0.25% 00:00: daily. [place] solution 00 Medical Branch sodium 2022-0 Yes [id number] Apply to Univers hypochlorit 8-12 105 area(s) ity o f e 0.25% 00:00: daily. [place] solution 00 Medical Branch sodium 2022-0 Yes [id number] Apply to Univers hypochlorit 8-12 105 area(s) ity o f e 0.25% 00:00: daily. [place] solution 00 Medical Branch sodium 2022-0 Yes [id number] Apply to Univers hypochlorit 8-12 105 area(s) ity o f e 0.25% 00:00: daily. [place] solution 00 Medical Branch sodium 2022-0 Yes [id number] Apply to Univers hypochlorit 8-12 105 area(s) ity o f e 0.25% 00:00: daily. [place] solution 00 Medical Branch sodium 2022-0 Yes [id number] Apply to Univers hypochlorit 8-12 105 area(s) ity o f e 0.25% 00:00: daily. [place] solution 00 Medical Branch sodium 2022-0 Yes [id number] Apply to Univers hypochlorit 8-12 105 area(s) ity o f e 0.25% 00:00: daily. [place] solution 00 Medical Branch sodium 2022-0 Yes [id number] Apply to Univers hypochlorit 8-12 105 area(s) ity o f e 0.25% 00:00: daily. [place] solution 00 Medical Branch sodium 2022-0 Yes [id number] Apply to Univers hypochlorit 8-12 105 area(s) ity o f e 0.25% 00:00: daily. [place] solution 00 Medical Branch sodium 2022-0 Yes [id number] Apply to Univers hypochlorit 8-12 105 area(s) ity o f e 0.25% 00:00: daily. [place] solution 00 [facility] repaglinide 2021- No [id number] .5mg Take 1 Univers 0.5 mg 02-23 tablet by ity of tablet 00:00: 00:00 mouth in [place] 00 :00 the [facility] and 1 tablet at noon and 1 tablet in the evening. Take before meals. repaglinide 2021- No [id number] .5mg Take 1 Univers 0.5 mg 02-23 tablet by ity of tablet 00:00: 00:00 mouth in [place] 00 :00 the [facility] and 1 tablet at noon and 1 tablet in the evening. Take before meals. repaglinide 2021- No [id number] .5mg Take 1 Univers 0.5 mg 02-23 tablet by ity of tablet 00:00: 00:00 mouth in [place] 00 :00 [facility] and 1 tablet at noon and 1 tablet in the evening. Take before meals. apixaban 5 2021- No 5mg Take 1 Univ ers mg tablet 02-23 tablet by ity of 00:00: 04:59 mouth in [place] 00 :00 [facility] and 1 tablet in the evening. Do all this for 30 days. Indication s: Symtomatic Superficia l Vein thrombosis insulin 2021- No [id number] 24U inject 24 Univers glargine 02-23 Units ity of 100 unit/mL 00:00: 04:59 under the [place] injection 00 :00 skin at [facility] bedtime [place] for 30 days. metFORMIN 2021- No [id number] 500mg Take 1 Univers 500 mg 02-23 tablet by ity of tablet 00:00: 04:59 mouth in [place] 00 :00 [facility] and 1 tablet in the evening. Take with meals. Do all this for 30 days. dulaglutide 2- No [id number] .75mg inject 1 Univers (TRULICITY) 02-23 Pen under it y of 0.75 mg/0.5 00:00: 04:59 the skin [place] mL PnIj 00 :00 weekly for Medica l 30 days. Branch apixaban 5 2- No 5mg Take 1 Univ ers mg tablet 02-23 tablet by ity of 00:00: 04:59 mouth in [place] 00 :00 the Medical morning Branch and 1 tablet in the evening. Do all this for 30 days. Indication s: Symtomatic Superficia l Vein thrombosis insulin 2021-2021- No [id number] 24U inject 24 Univers glargine 02-23 Units ity of 100 unit/mL 00:00: 04:59 under the [place] injection 00 :00 skin at [facility] for 30 days. metFORMIN 2021-2021- No [id number] 500mg Take 1 Univers 500 mg 02-23 tablet by ity of tablet 00:00: 04:59 mouth in [place] 00 :00 the [facility] morning [place] and 1 tablet in the evening. Take with meals. Do all this for 30 days. dulaglutide 2021- No [id number] .75mg inject 1 Univers (TRULICITY) 02-23 Pen under it y of 0.75 mg/0.5 00:00: 04:59 the skin [place] mL PnIj 00 :00 weekly for Medica l 30 days. Branch apixaban 5 2021- No 5mg Take 1 Univ ers mg tablet 02-23 tablet by ity of 00:00: 04:59 mouth in [place] 00 :00 the [facility] morning [place] and 1 tablet in the evening. Do all this for 30 days. Indication s: Symtomatic Superficia l Vein thrombosis insulin 2021- No [id number] 24U inject 24 Univers glargine 02-23 Units ity of 100 unit/mL 00:00: 04:59 under the [place] injection 00 :00 skin [facility] for 30 days. metFORMIN 2021-2021- No [id number] 500mg Take 1 Univers 500 mg 02-23 tablet by ity of tablet 00:00: 04:59 mouth in [place] 00 :00 the [facility] morning Branch and 1 tablet in the evening. Take with meals. Do all this for 30 days. dulaglutide 2022021- No [id number] .75mg inject 1 Univers (TRULICITY) 02-23 Pen under it y of 0.75 mg/0.5 00:00: 04:59 the skin [place] mL PnIj 00 :00 weekly for Medica l 30 days. Branch apixaban 5 2- No 5mg Take 1 Univ ers mg tablet 02-23 tablet by ity of 00:00: 04:59 mouth in [place] 00 :00 the Medical morning Branch and 1 tablet in the evening. Do all this for 30 days. Indication s: Symtomatic Superficia l Vein thrombosis insulin 2021- No [id number] 24U inject 24 Univers glargine 02-23 Units ity of 100 unit/mL 00:00: 04:59 under the [place] injection 00 :00 skin at [facility] bedtime Branch for 30 days. metFORMIN 2021- No [id number] 500mg Take 1 Univers 500 mg 02-23 tablet by ity of tablet 00:00: 04:59 mouth in [place] 00 :[address] [facility] Branch and 1 tablet in the evening. Take with meals. Do all this for 30 days. dulaglutide 2021- No [id number] .75mg inject 1 Univers (TRULICITY) 02-23 Pen under it y of 0.75 mg/0.5 00:00: 04:59 the skin [place] mL PnIj 00 :00 weekly for Medica l 30 days. Branch linezolid 2021- No [id number] 600mg Take 1 Univers 600 mg 02-23 tablet by ity of tablet 00:00: 04:59 mouth [place] 00 :00 every 12 Medical (twelve) Branch hours for 14 days. fluconazole 2021- No [id number] 400mg Take 2 Univers 200 mg 02-23 tablets by ity of tablet 00:00: 04:59 mouth in [place] 00 :[address] [facility] Branch for 14 days. ciprofloxac 2021- No [id number] 500mg Take 2 Univers in HCl 250 02-23 tablets by it y of mg tablet 00:00: 04:59 mouth in [place] 00 :00 the Medical morning Branch and 2 tablets in the evening. Do all this for 14 days. linezolid 2021-0 2021- No [id number] 600mg Take 1 Univers 600 mg 8-12 08-27 tablet by ity of tablet 00:00: 04:59 mouth [place] 00 :00 every 12 [facility]) Branch hours for 14 days. fluconazole 2021-0 2021- No [id number] 400mg Take 2 Univers 200 mg 8-12 08-27 tablets by ity of tablet 00:00: 04:59 mouth in [place] 00 :[address] [facility] Branch for 14 days. ciprofloxac 2021-0 2021- No [id number] 500mg Take 2 Univers in HCl 250 8-12 08-27 tablets by it y of mg tablet 00:00: 04:59 mouth in [place] 00 :00 the Medical morning Branch and 2 tablets in the evening. Do all this for 14 days. linezolid 2021-0 2021- No [id number] 600mg Take 1 Univers 600 mg 8-12 08-27 tablet by ity of tablet 00:00: 04:59 mouth [place] 00 :00 every 12 [facility]) [place] hours for 14 days. fluconazole 2021-0 2021- No [id number] 400mg Take 2 Univers 200 mg 8-12 08-27 tablets by ity of tablet 00:00: 04:59 mouth in [place] 00 :[address] [facility] Branch for 14 days. ciprofloxac 2021-0 2021- No [id number] 500mg Take 2 Univers in HCl 250 8-12 08-27 tablets by it y of mg tablet 00:00: 04:59 mouth in [place] 00 :00 the Medical morning Branch and 2 tablets in the evening. Do all this for 14 days. linezolid 2021-0 2021- No [id number] 600mg Take 1 Univers 600 mg 8-12 08-27 tablet by ity of tablet 00:00: 04:59 mouth [place] 00 :00 every 12 [facility] [place] hours for 14 days. fluconazole 2021-0 2021- No [id number] 400mg Take 2 Univers 200 mg 8-12 08-27 tablets by ity of tablet 00:00: 04:59 mouth in [place] 00 :[address] [facility] Branch for 14 days. ciprofloxac No [id number] 500mg Take 2 Univers in HCl 250 02-23 tablets by it y of mg tablet 00:00: 04:59 mouth in [place] 00 :00 the Medical morning Branch and 2 tablets in the evening. Do all this for 14 days. gabapentin 2021- No [id number] 300mg Take 1 Univers 300 mg 02-23 capsule by ity of capsule 00:00: 04:59 mouth in [place] 00 :00 the [facility] morning Branch and 1 capsule at noon and 1 capsule in the evening. Do all this for 7 days. gabapentin 2021- No [id number] 300mg Take 1 Univers 300 mg 02-23 capsule by ity of capsule 00:00: 04:59 mouth in [place] 00 :00 the [facility] morning [place] and 1 capsule at noon and 1 capsule in the evening. Do all this for 7 days. gabapentin 2021- No [id number] 300mg Take 1 Univers 300 mg 02-23 capsule by ity of capsule 00:00: 04:59 mouth in [place] 00 :00 the [facility] morning [place] and 1 capsule at noon and 1 capsule in the evening. Do all this for 7 days. gabapentin 2021- No [id number] 300mg Take 1 Univers 300 mg 02-23 capsule by ity of capsule 00:00: 04:59 mouth in [place] 00 :00 the [facility] morning [place] and 1 capsule at noon and 1 capsule in the evening. Do all this for 7 days. sodium 2021- No [id number] [facility] 02-23 area(s) ity of e 0.25% 00:00: 00:00 daily. [place] solution 00 :00 Medical Branch repaglinide 2021- No [id number] .5mg Take 1 Univers 0.5 mg 02-23 tablet by ity of tablet 00:00: 00:00 mouth in [place] 00 :00 the [facility] morning [place] and 1 tablet at noon and 1 tablet in the evening. Take before meals. Do all this for 30 days. Sliding 2021- No Subcutaneo Uni vers Scale 8-11 08-12 us, TID ity of Insulin - 22:00: 12:34 MEALS+HS, [place] Lispro 00 :51 First dose Medical (HumaLOG) + (after Branch Fsbg last Testing modificati on) on [facility] 02/22/22 at 1700, Until Discontinu ed, Routine acetaminoph 0 Yes 1000mg 1,000 mg, Univers en 8-11 Oral, Q8H, ity of (TYLENOL) 19:00: First dose [place] tablet 00 on [facility] 1,000 mg 02/22/22 at [facility] h 1400, Until Discontinu ed, Routine methocarbam Yes 500mg 500 mg, Un ela oL 811 Oral, Q6H, ity of (ROBAXIN) 17:00: First dose [place] tablet 500 00 on [facility] mg 02/22/22 at Branch 1200, Until Discontinu ed, Routine Sliding 0 2021- No Subcutaneo Uni vers Scale 02-22 , TID ity of Insulin - 17:00: 19:31 MEALS+HS, [place] Lispro 00 :30 First dose Medical (HumaLOG) + (after Branch Fsbg last Testing modificati on) on [facility] 02/22/22 at 1200, Until Discontinu ed, Routine insulin NPH Yes 24U 24 Units, U nivers (HUMULIN N) 02-22 Subcutaneo it y of injection 14:00: us, QAM, [place] 24 Units 00 First dose Medic al (after Branch last modificati on) on [facility] 02/22/22 at 0900, Until Discontinu ed, Routine insulin NPH 2021- No 20U 20 Units, Univers (HUMULIN N) 02-22 Subcutaneo i ty of injection 14:00: 19:31 us, QAM, [place] 20 Units 00 :02 First dose Medic al (after Branch last modificati on) on [facility] 02/22/22 at 0900, Until Discontinu ed, Routine insulin Yes 5U 5 Units, Univer s lispro 02-22 Subcutaneo ity of (human) 13:45: us, TID [place] (HumaLOG 00 MEALS, Medical U-100) First dose Branch injection 5 (after Units last modificati on) on [facility] 02/22/22 at 0845, Until Discontinu ed, Routine apixaban Yes 5mg 5 mg, Univers (ELIQUIS) 02-22 Oral, BID, ity of tablet 5 mg 13:00: First dose [place] 00 on [facility] Medical 02/22/22 at Branch 0800, Until Discontinu ed, Routine
Indicatio ns: DVT/PE celecoxib Yes 100mg 100 mg, Univ ers (CELEBREX) 02-22 Oral, BID ity of capsule 100 13:00: MEALS, [place] mg 00 First dose Medical on [facility] Branch 02/22/22 at 0800, Until Discontinu ed, Routine gabapentin Yes 300mg 300 mg, Uni vers (NEURONTIN) 02-22 Oral, TID, it y of capsule 300 13:00: First dose [place] mg 00 on [facility] 02/22/22 at Branch 0800, Until Discontinu ed, Routine HYDROmorpho Yes 4mg 4 mg, Unive rs ne 02-22 Oral, TID, ity of (DILAUDID) 13:00: First dose [place] tablet 4 mg 00 (after Medica l last Branch modificati on) on [facility] 02/22/22 at 0800, Until Discontinu ed, Routine [...] Subcutaneo ity of (human) 22:00: us, TID [place] (HumaLOG 00 MEALS, Medical U-100) First dose [...] mg 00 :00 Starting Medi efrain on Sat Branch 02/21/22 at 1000, Until [facility] 02/22/22 at 0604, Routine, Pain (scale 7-10) insulin NPH 2021- No 20U 20 Units, Univers (HUMULIN N) 02-21 Subcutaneo i ty of injection 14:00: 18:34 us, QAM, [place] 20 Units 00 :03 First dose Medic al (after Branch last modificati on) on Sat02/21/22 at 0900, Until Discontinu ed, Routine Sliding 2022-0 Yes Subcutaneo Univ ers Scale 8-10 us, TID ity of Insulin - 13:00: MEALS+HS, [place] Lispro 00 First dose Medical (HumaLOG) + (after Branch Fsbg last Testing modificati on) on Sat02/21/22 at 0800, Until Discontinu ed, Routine Sliding 2021- No Subcutaneo Uni vers Scale 8-10 08-11 us, TID ity of Insulin - 13:00: [...] [place] (SENSORCAIN 00 :05 02/20/22 at [facility]) 0.5 1200, Branch % (5 [...] Sat02/20/22 at 1256, Routine, Intra-op midazolam 2021- IV Push, Uni vers (VERSED) 02-20 ONCE [...] ed, Routine insulin No 14U 14 Units, Univ ers lispro 02-20 Subcutaneo ity of (human) 13:00: 12:44 us, TID [place] (HumaLOG 00 :50 MEALS, Medical U-100) First [...] ed, Routine HYDROmorpho No 4mg 4 mg, [facility] ers ne 02-19 Oral, ity of (DILAUDID) [...] ed, Routine insulin No 15U 15 Units, [facility] ers lispro 02-19 Subcutaneo ity of (human) 13:30: 12:53 us, TID [place] (HumaLOG 00 :44 MEALS, Medical U-100) First [...] Routine magnesium No 4g 4 g, IV [facility] ers sulfate in 02-19 Piggyback, it y of water 4 12:00: 15:57 ONCE, 1 [place] gram/50 mL 00 :00 dose, On Medic al (8 %) IV Mon 02/19/22 Branc h Piggyback 4 at 0700, g [...] Branch last modificati on) on 02/18/22 at 1700, Until Discontinu ed, Routine insulin No 18U 18 Units, Univ ers lispro 02-18 Subcutaneo ity of (human) 17:00: 13:15 us, TID [place] (HumaLOG 00 :02 MEALS, Medical U-100) First dose Branch injection (after 18 Units last modificati on) on 02/18/22 at 1200, Until Discontinu ed, Routine insulin NPH No 37U 37 Units, Univers (HUMULIN N) 02-18 Subcutaneo i ty of injection 14:00: 14:15 us, QAM, [place] 37 Units 00 :14 First dose Medic al (after Branch last modificati on) on 02/18/22 at 0900, Until Discontinu ed, Routine Sliding No Subcutaneo Uni vers Scale 02-18 us, TID ity of Insulin - 02:00: 12:53 MEALS+HS, [place] Lispro 00 :44 First dose Medical (HumaLOG) + (after Branch Fsbg last Testing modificati on) on 02/17/22 at 2100, Until Discontinu ed, Routine HYDROmorpho No 2mg 2 mg, Univ ers ne 8-07 08-08 Oral, ity of (DILAUDID) 00:17: 16:23 Q8HPRN, [place] tablet 2 mg 00 :26 Starting Medi efrain on Sat Branch 02/17/22 at 1917, Until 02/19/22 at 1123, Routine, Pain (scale 7-10) insulin 2021- No 17U 17 Units, [facility] ers lispro 02-17 Subcutaneo ity of (human) 22:00: 14:15 us, TID [place] (HumaLOG 00 :14 MEALS, Medical U-100) First [...] ed, Routine Sliding Subcutaneo Uni vers Scale 02-17- us, Q4H, ity of Insulin - 21:00: 22:06 First dose [place] Lispro 00 :35 (after Medical (HumaLOG) + last Branch Fsbg modificati Testing on) on 02/17/22 at 1600, Until Discontinu ed, Routine HYDROmorpho 2021- No 4mg 4 mg, [facility] ers ne 02-17 Oral, ity of (DILAUDID) 17:24: 00:17 Q8HPRN, [place] tablet 4 mg 27 :12 Starting Medi efrain on Sat Branch 02/17/22 at 1224, Until 02/17/22 at 1917, Routine, Pain (scale 7-10) sodium 2021-0 Yes Topical, Univers hypochlorit 8-06 DAILY, ity of e 0.25% 14:00: [place] (DAKIN'S 00 on Sat Medical SOLUTION) 02/17/22 at [facility] h solution 0900, Until Discontinu ed, SAHARA sodium 2021-0 Yes Topical, Univers hypochlorit 8-06 DAILY, ity of e 0.25% 14:00: First [place] (DAKIN'S 00 on Sat Medical SOLUTION) 02/17/22 at [facility] h solution 0900, Until Discontinu ed, SAHARA insulin 12U 12 Units, Univ ers lispro 02-17 Subcutaneo ity of (human) 14:00: 19:55 us, TIDPC, [place] (HumaLOG 00 :31 First dose Medic al U-100) (after Branch injection last 12 Units modificati on) on 02/17/22 at 0900, Until Discontinu ed, Routine insulin NPH 26U 26 Units, Univers (HUMULIN N) 02-17 Subcutaneo i ty of injection 14:00: 19:55 us, QAM, [place] 26 Units 00 :31 First dose Medic al (after Branch last modificati on) on 02/17/22 at 0900, Until Discontinu ed, Routine Sliding Subcutaneo Uni vers Scale 02-17 , TID ity of Insulin - 13:00: 19:55 [...] swallow or has mental status changes. HYDROmorpho .2mg 0.2 mg, Un ela ne 02-17 Slow IV ity of (DILAUDID) 01:49: 02:17 Push, PRN, [place] injection 34 :00 1 dose, Medical 0.2 mg Starting Branch on 02/16/22 at 204, Until Sat02/16/22 at 211, Routine, Pain (scale 7-10)
U se approved by (Faculty): INTENS[facility]ARE [facility] KCL 20 40meq 40 mEq, Univer s mEq/15 mL 02-16 Oral, ity of solution 40 23:30: 22:58 ONCE, 1 [place] mEq 00 :00 dose, On Medical 02/16/22 Branch at 1830, Routine Sliding Subcutaneo Uni vers Scale 02-16 us, Q4H, ity of Insulin - 22:15: 12:23 First dose [place] Lispro 00 :48 on Fri Medical (HumaLOG) + 02/16/22 at [facility] Fsbg 1715, Testing Until Discontinu [...] 00 :09 First dose Medic al on Sat02/16/22 at 0900, Until Discontinu ed, Routine HYDROmorpho [...] on [facility] (humaLOG) + 02/15/22 at [facility] Fsbg 1999, Testing Until Discontinu ed, Routine meropenem 2021- No 1000mg 1,000 mg, Univers (MERREM) 02-16 IV ity of 1,000 mg in 00:15: 02:14 [facility], [place] NaCl 0.9% 00 :44 Q8H ABX, Medica [...] Medical 0.2 mg dose, On Branch [facility] 02/15/22 at 1900, Routine
Use approved by (Faculty): [facility] HYDROmorpho 2021- No .2mg 0.2 mg, Un ela ne 02-15 Slow IV ity of (DILAUDID) 19:30: 18:59 Push, [place] injection 00 :00 ONCE, 1 Medical 0.2 mg dose, On Branch [facility] 02/15/22 at 1430, Routine
Use approved by (Faculty): [facility] cholestyram 2021- No Topical Un ela ine-nystati 02-15 (Apply To it y of n-zinc 18:29: 12:46 Affected [place] oxide 12 :35 Areas), Medical ointment PRN, Branch 1:1:1 Starting (COMPOUNDED on [facility] ) 02/15/22 at 1329, Until 02/19/22 at 0746, Routine, Wound care, Cuts, abrasions, and skin ulcers iopamidol 0 202- No [id number] 60mL 60 mL, Univers (ISOVUE 02-15 Intravenou ity o f 370-500 mL) 17:25: 05:25 s, ONCE, 1 [place] injection 00 :00 dose, On Medica l 60 mL [facility] 02/15/22 Branch at 1230, Routine meropenem 2021- No 1000mg 1,000 mg, Univers (MERREM) 02-15 IV ity of 1,000 mg in 16:45: 20:14 [place], [place] NaCl 0.9% 00 :00 ONCE, 1 Medical (NS) 50 mL dose, On Branc h MINI-BAG [facility] 02/15/22 at 1145, Administer over 30 Minutes, 50 mL
R estricted use approved by: NAMR[facility] 8TH FLOOR
R keegan for Anti-Infec tive: Documented Infection< br>Documen lester Infection Site: Urine
D uration of Therapy: 7 days pantoprazol 0 Yes 40mg 40 mg, Univ ers e 8 Oral, ity of (PROTONIX) 14:00: DAILY, [place] EC tablet 00 First dose Medi efrain 40 mg on [facility] Branch 02/15/22 at 0900, Until Discontinu ed, Routine
Indicatio n for use: None of the above pantoprazol 2021-0 Yes 40mg 40 mg, Univ ers e 8 Oral, ity of (PROTONIX) 14:00: DAILY, [place] EC tablet 00 First dose Medi efrain 40 mg on [facility] Branch 02/15/22 at 0900, Until Discontinu [...] [facility] 02/15/22 at 0230, SAHARA FENTanyl PF 0 2021- No 50ug 50 mcg, Un ela (SUBLIMAZE 02-15 Slow IV ity o f (PF)) 06:45: 06:01 Push, [place] injection 00 :00 ONCE, 1 Medical 50 mcg dose, On Branch [facility] 02/15/22 at 0145, Routine cefTRIAXone 2021- No 1000mg 1,000 mg, Univers (ROCEPHIN) 02-15 IV ity of 1,000 mg in 05:30: 06:00 [place] NaCl 0.9% 00 :00 ONCE, 1 [...] Subcutaneo ity of (human) 17:00: us, TID [place] (HumaLOG 00 MEALS, Medical U-100) First dose [...] Discontinu ed, Routine insulin NPH 2021- No [id number] 50U inject 50 Univers and regular 30 08-30 Units ity of human 70-30 00:00: 04:59 under the [place] 100 unit/mL 00 :00 skin every Me dical (70-30) morning Branch injection and evening for 30 days. proMETHazin 2021- No [id number] 12.5mg Insert 1 Univers e 12.5 mg 02-10 0830 Suppositor ity of suppository 00:00: 04:59 y into [place] 00 :00 rectum Medical every 6 Branch (six) hours as needed for Nausea and Vomiting (N/V) for up to 30 days. proMETHazin 2021- No [id number] 12.5mg Take 0.5 Univers e 25 mg 7-30 08-30 tablets by ity o f tablet 00:00: 04:59 mouth [place] 00 :00 every 4 Medical (four) Branch hours as needed for Nausea and Vomiting (N/V) for up to 30 days. insulin NPH 2021- No [id number] 50U inject 50 Univers and regular 7-30 08-30 Units ity of human 70-30 00:00: 04:59 under the [place] 100 unit/mL 00 :00 skin every Me dical (70-30) morning Branch injection and evening for 30 days. proMETHazin 2021- No [id number] 12.5mg Insert 1 Univers e 12.5 mg 7-30 08-30 Suppositor ity of suppository 00:00: 04:59 y into [place] 00 :00 rectum Medical every 6 Branch (six) hours as needed for Nausea and Vomiting (N/V) for up to 30 days. proMETHazin 2021- No [id number] 12.5mg Take 0.5 Univers e 25 mg 7-30 08-30 tablets by ity o f tablet 00:00: 04:59 mouth [place] 00 :00 every 4 Medical (four) Branch hours as needed for Nausea and Vomiting (N/V) for up to 30 days. insulin NPH 2021- No [id number] 50U inject 50 Univers and regular 7-30 08-30 Units ity of human 70-30 00:00: 04:59 under the [place] 100 unit/mL 00 :00 skin every Me dical (70-30) morning Branch injection and evening for 30 days. proMETHazin 2021- No [id number] 12.5mg Insert 1 Univers e 12.5 mg 7-30 08-30 Suppositor ity of suppository 00:00: 04:59 y into [place] 00 :00 rectum Medical every 6 Branch (six) hours as needed for Nausea and Vomiting (N/V) for up to 30 days. proMETHazin 2021- No [id number] 12.5mg Take 0.5 Univers e 25 mg 7-30 08-30 tablets by ity o f tablet 00:00: 04:59 mouth [place] 00 :00 every 4 Medical (four) Branch hours as needed for Nausea and Vomiting (N/V) for up to 30 days. insulin NPH 2021- No [id number] 50U inject 50 Univers and regular 7-30 08-30 Units ity of human 70-30 00:00: 04:59 under the [place] 100 unit/mL 00 :00 skin every Me dical (70-30) morning Branch injection and evening for 30 days. proMETHazin 2021- No [id number] 12.5mg Insert 1 Univers e 12.5 mg 7-30 08-30 Suppositor ity of suppository 00:00: 04:59 y into [place] 00 :00 rectum Medical every 6 Branch (six) hours as needed for Nausea and Vomiting (N/V) for up to 30 days. proMETHazin 2021- No [id number] 12.5mg Take 0.5 Univers e 25 mg 7-30 08-30 tablets by ity o f tablet 00:00: 04:59 mouth [place] 00 :00 every 4 Medical (four) Branch hours as needed for Nausea and Vomiting (N/V) for up to 30 days. insulin NPH 2021- No [id number] 50U inject 50 Univers and regular 7-30 08-30 Units ity of human 70-30 00:00: 04:59 under the [place] 100 unit/mL 00 :00 skin every Me dical (70-30) morning Branch injection and evening for 30 days. proMETHazin 2021- No [id number] 12.5mg Insert 1 Univers e 12.5 mg 7-30 08-30 Suppositor ity of suppository 00:00: 04:59 y into [place] 00 :00 rectum Medical every 6 Branch (six) hours as needed for Nausea and Vomiting (N/V) for up to 30 days. proMETHazin 2021- No [id number] 12.5mg Take 0.5 Univers e 25 mg 7-30 08-30 tablets by ity o f tablet 00:00: 04:59 mouth [place] 00 :00 every 4 Medical (four) Branch hours as needed for Nausea and Vomiting (N/V) for up to 30 days. proMETHazin 0 2021- No [id number] 12.5mg Insert 1 Univers e 12.5 mg 7-30 08-30 Suppositor ity of suppository 00:00: 04:59 y into [place] 00 :00 rectum Medical every 6 Branch (six) hours as needed for Nausea and Vomiting (N/V) for up to 30 days. proMETHazin 2021- No [id number] 12.5mg Take 0.5 Univers e 25 mg 7-30 08-30 tablets by ity o f tablet 00:00: 04:59 mouth [place] 00 :00 every 4 Medical (four) Branch hours as needed for Nausea and Vomiting (N/V) for up to 30 days. proMETHazin 2021- No [id number] 12.5mg Insert 1 Univers e 12.5 mg 7-30 08-30 Suppositor ity of suppository 00:00: 04:59 y into [place] 00 :00 rectum Medical every 6 Branch (six) hours as needed for Nausea and Vomiting (N/V) for up to 30 days. proMETHazin 2021- No [id number] 12.5mg Take 0.5 Univers e 25 mg 7-30 08-30 tablets by ity o f tablet 00:00: 04:59 mouth [place] 00 :00 every 4 Medical (four) Branch hours as needed for Nausea and Vomiting (N/V) for up to 30 days. proMETHazin 2021- No [id number] 12.5mg Insert 1 Univers e 12.5 mg 7-30 08-30 Suppositor ity of suppository 00:00: 04:59 y into [place] as 00 :00 rectum Medical every 6 Branch (six) hours as needed for Nausea and Vomiting (N/V) for up to 30 days. proMETHazin 2021-2021- No [id number] 12.5mg Take 0.5 Univers e 25 mg 7-30 08-30 tablets by ity o f tablet 00:00: 04:59 mouth [place] 00 :00 every 4 Medical (four) Branch hours as needed for Nausea and Vomiting (N/V) for up to 30 days. proMETHazin 2021- No [id number] 12.5mg Insert 1 Univers e 12.5 mg 02-10 Suppositor ity of suppository 00:00: 04:59 y into Tim as 00 :00 rectum Medical every 6 Branch (six) hours as needed for Nausea and Vomiting (N/V) for up to 30 days. proMETHazin 2021- No [id number] 12.5mg Take 0.5 Univers e 25 mg 02-1030 tablets by ity o f tablet 00:00: 04:59 mouth [place] 00 :00 every 4 Medical (four) Branch hours as needed for Nausea and Vomiting (N/V) for up to 30 days. insulin NPH 2021- No [id number] 50U inject 50 Univers and regular 02-10 08-12 Units ity of human 70-30 00:00: 00:00 under the [place] 100 unit/mL 00 :00 skin every Me dical (70-30) morning Branch injection and evening for 30 days. insulin 2021- No 5U 5 Units, Unive rs lispro 02-09 Subcutaneo ity of (human) 17:00: 14:45 us, TID [place] (HumaLOG 00 :04 MEALS, Medical U-100) First dose Branch injection 5 (after Units last modificati on) on Sat02/09/22 at 1200, Until Discontinu ed, Routine HYDROmorphO 2021- No 1mg 1 mg, Univ ers ne 02-09 Intravenou ity of (DILAUDID) 16:54: 16:53 s, Q6HPRN, [place] injection 1 28 :28 Starting Medi efrain [...] Discontinu ed, Routine, line maintenanc e lidocaine 0 Yes 5mL 5 mL, Univers 1% (PF) 02-09 Subcutaneo ity of (XYLOCAINE) 01:04: us, PRN, [place] injection 5 34 Starting Medi efrain mL on Libra Branch 02/08/22 at 2004, Until Discontinu ed, Routine, Local anesthesia nystatin Yes Topical, Unive rs (NYSTOP) 02-09 BID, First ity o f powder 01:00: dose on [place] 00 [facility] Medical 02/08/22 at Branch 2000, Until Discontinu ed, Routine Sliding Yes Subcutaneo Univ ers Scale 02-08 us, TID ity of Insulin - 22:00: MEALS+HS, [place] Lispro 00 First dose Medical (HumaLOG) + (after Branch Fsbg last Testing modificati on) on [facility] 02/08/22 at 1700, Until Discontinu ed, Routine insulin 0 2021- No 3U 3 Units, Unive rs lispro 02-08 Subcutaneo ity of (human) 22:00: 14:02 , TID [place] (HumaLOG 00 :21 MEALS, Medical U-100) First dose Branch injection 3 on [facility] Units 02/08/22 at 1700, Until Discontinu ed, Routine mupirocin Yes Univers (BACTROBAN 02-08 ity of OINT) 2 % 21:45: [place] skin 00 Medical ointment Branch collagenase Yes Topical Uni vers (SANTYL) 02-08 (Apply To ity of ointment 21:45: Affected [place] 00 Areas), Medical DAILY, Branch First dose (after last modificati on) on [facility] 02/08/22 at 1645, Until Discontinu ed, [...] Branch CONTINUOUS , Starting on Sat02/07/22 at 2115, Until Libra 02/08/22 at 0847, Routine proMETHazin No 12.5mg 12.5 mg, Univers e 02-08 IV ity of (PHENERGAN) 02:15: 01:35 Piggyback, [place] 12.5 mg in 00 :00 ONCE, 1 Medica l NaCl 0.9% dose, On Branch (NS) 50 mL Wed IV 02/07/22 at piggyback 2114, Routine insulin 2021- No 10U 10 Units, [place] [facility] lispro 02-08 Subcutaneo ity of (human) [...] months HYDROmorphO 2021- No 1mg 1 mg, [place] [facility] ne 02-08 Intravenou ity of (DILAUDID) 01:01: [...] ed, Routine pantoprazol Yes 40mg 40 mg, [place] [facility] e 02-08 Oral, ity of (PROTONIX) 00:30: DAILY, [place] EC tablet 00 First dose Medi efrain 40 mg on Wed Branch 02/07/22 at 1930, Until Discontinu ed, Routine FENTanyl PF 2021- No 50ug 50 mcg, Un ela (SUBLIMAZE 02-07 Intramuscu it y of (PF)) 22:51: 01:01 lar, [place] injection 14 :59 Q4HPRN, Medical 50 mcg Starting Branch on Sat02/07/22 at 1751, Until Sat02/07/22 at 2001, Routine, Pain (scale 7-10) Sliding 2021- No Subcutaneo Uni vers Scale 02-07 us, Q3H, ity of Insulin - 22:00: 00:29 First dose [place] Lispro 00 :25 on Sat Medical (HumaLOG) + 02/07/22 at [facility] Fsbg 1700, Testing Until Discontinu ed, Routine acetaminoph Yes 1000mg 1,000 mg, Univers en 02-07 Oral, Q8H, ity of (TYLENOL) 21:15: First dose [place] tablet 00 on Sat Medical 1,000 mg 02/07/22 at [facility] h 1615, Until Discontinu ed, Routine [...] doses, Medical mEq/100 mL First dose Bra [facility] RTU IVPB 20 on Sat mEq 02/07/22 [...] Administer over 60 Minutes, 100 mL aztreonam No 1000mg 1,000 mg, Univers (AZACTAM) 02-07 Slow IV ity of injection 12:00: 12:41 Push, Q8H [place] 1,000 mg 00 :55 ABX, First Medic al dose on Branch Sat02/07/22 at 0700, Until Discontinu ed
Reas on for Anti-Infec tive: Empiric Therapy for Suspected Infection< br>Empiric Therapy Site: Urine<b r>Duration of therapy: 7 days NaCl 0.9% No 1000mL at 999 Uni [...] No 0U/kg/h 0-0.3 Unive rs regular in 02-07-27 Units/kg/h it y of 0.9 % NaCl [...] IV 02-07- mL/hr, IV ity of infusion 08:30: 11:00 [...] dose, On Medica l (NS) 50 mL [facility] MINI-BAG 02/06/22 at 2300, Administer over 30 [...] o f human 01:30: 00:37 , ONCE, [place] (HUMULIN R) 00 :00 1 dose, On Me dical injection [facility] Branch 10 Units 02/06/22 at 2030, Routine FENTanyl PF 2021- No 50ug 50 mcg, Un ela (SUBLIMAZE 02-07 Slow IV ity o f (PF)) 01:30: 00:28 Push, [place] injection 00 :00 ONCE, 1 Medical 50 mcg dose, On Branch 02/06/22 at 2030, Routine NaCl 0.9% No 1000mL at 999 Uni vers (NS) bolus 02-07- mL/hr, ity of infusion 00:30: 02:09 1,000 mL, [place] 1,000 mL 00 :00 IV Medical Infusion, Branch ONCE, 1 dose, On 02/06/22 at 1930, STAT iopamidol 2021- No [id number] 65mL 65 mL, Univers (ISOVUE 01-27 [id number] Intravenou ity of 370-500 mL) 02:29: 02:45 s, ONCE, 1 [place] injection 00 :00 dose, On Medica l 65 mL Fri Branch 01/26/22 at 2145, Routine FENTanyl PF 2021- No 150ug 150 mcg, Univers (SUBLIMAZE 01-27 Slow IV ity o f (PF)) 01:32: 01:44 Push, [place] injection 00 :00 ONCE, 1 Medical 150 mcg dose, On Branch Sat01/26/22 at 2045, Routine FENTanyl PF 2021- No 50ug 50 mcg, Un ela (SUBLIMAZE 01-27 Slow IV ity o f (PF)) 00:30: 23:32 Push, [place] injection 00 :00 ONCE, 1 Medical 50 mcg dose, On Branch 01/26/22 at 1930, Routine insulin 2021- No 10U 10 Units, Univ ers regular 01-27 Subcutaneo ity o f human 00:30: 23:28 , ONCE, [place] (HUMULIN R) 00 :00 1 dose, On Me dical injection Fri Branch 10 Units 01/26/22 at 1930, Routine clindamycin 2021- No [id number] 600mg Take 2 Univers 300 mg 01-26 [id number] capsules ity of capsule 00:00: 04:59 by mouth 4 [place] 00 :00 (four) Medical times Branch daily for 7 days. clindamycin 2021- No [id number] 600mg Take 2 Univers 300 mg 01-26 [id number] capsules ity of capsule 00:00: 04:59 by mouth 4 [place] 00 :00 (four) Medical times Branch daily for 7 days. insulin NPH 2021- No 8U 8 Units, U nivers and regular 01-17 07-06 Subcutaneo i ty of human 70-30 12:30: 11:30 us, ONCE, [place] (70-30 00 :00 1 dose, On Medical U-100 01/17/22 Branch INSULIN) at 0730, 100 unit/mL SAHARA (70-30) injection 8 Units insulin Yes [id number] 20U inject 20 U nivers glargine 7-02 Units ity of 100 unit/mL 00:00: under the [place] injection 00 skin Medical daily. Branch insulin Yes [id number] 20U inject 20 U nivers glargine 7-02 Units ity of 100 unit/mL 00:00: under the [place] injection 00 skin Medical daily. Branch insulin Yes [id number] 20U inject 20 U nivers glargine 7-02 Units ity of 100 unit/mL 00:00: under the [place] injection 00 skin Medical daily. Branch insulin Yes [id number] 20U inject 20 U nivers glargine 7-02 Units ity of 100 unit/mL 00:00: under the [place] injection 00 skin Medical daily. Branch insulin 2021- No [id number] 20U inject 20 Univers glargine 7-02 07-30 Units ity of 100 unit/mL 00:00: 00:00 under the [place] injection 00 :00 skin Medical daily. Branch insulin 2021- No [id number] 20U inject 20 Univers glargine 7-02 07-30 [...] Until Discontinu ed, Routine insulin 2021- No [id number] 26U inject 26 Univers lispro, 01-12 08- Units ity of human, 100 00:00: 04:59 under the [place] unit/mL 00 :00 skin 3 Medical injection (three) Branch times daily before meals for 30 days. insulin 2021- No [id number] 26U inject 26 Univers lispro, 01-12 08- Units ity of human, 100 00:00: 04:59 under the [place] unit/mL 00 :00 skin 3 Medical injection (three) Branch times daily before meals for 30 days. insulin 2021- No [id number] 26U inject 26 Univers lispro, 01-12 08- Units ity of human, 100 00:00: 04:59 under the [place] unit/mL 00 :00 skin 3 Medical injection (three) Branch times daily before meals for 30 days. insulin 2021- No [id number] 26U inject 26 Univers lispro, 01-12- Units ity of human, 100 00:00: 04:59 under the [place] unit/mL 00 :00 skin 3 Medical injection (three) Branch times daily before meals for 30 days. insulin 2021- No [id number] 26U inject 26 Univers lispro, 01-12 07-30 Units ity of human, 100 00:00: 00:00 under the [place] unit/mL 00 :00 skin 3 Medical injection (three) Branch times daily before meals for 30 days. insulin 2021- No [id number] 26U inject 26 Univers lispro, 01-12 07-30 [...] 22U 22 Units, Univ ers lispro 01-11 Subcutaneo ity of (human) 16:30: 21:36 us, TIDAC, [place] (HumaLOG 00 :36 First dose Medic al U-100) (after Branch injection last 22 Units modificati on) on Sat01/11/22 at 1130, Until Discontinu ed, Routine insulin 2021- No 10U 10 Units, Univ ers glargine 01-11 Subcutaneo ity of (LANTUS 14:00: 17:40 us, DAILY, [place] U-100) 00 :01 First dose Medical injection on Sat Branch 10 Units 01/11/22 at 0900, Until Discontinu ed, Routine insulin Yes 52U 52 Units, Unive rs glargine 01-11 Subcutaneo ity o f (LANTUS 02:00: us, [facility], [place] U-100) 00 First dose Medical [...] IV ity of 1,000 mg in 13:00: [place], [place] NaCl 0.9% 00 Q24H ABX, Medic al (NS) 50 mL First dose Bra [facility] MINI-BAG on Sat01/10/22 at 0800, Until Discontinu [...] Units 0730, Until Discontinu ed, Routine HYDROmorpho 1mg 1 mg, Slow Univers ne 01-10 0701 IV Push, ity of (DILAUDID) 11:32: 11:31 Q6HPRN, [place] injection 1 00 :00 Starting Medi efrain mg on Sat Branch 01/10/22 at 0632, Until Sat01/12/22 at 0631, Routine, Pain (scale 7-10)
U se approved by (Faculty): [facility] PROVIDER NaCl 0.9% No 1000mL at 999 Uni vers (NS) bolus 01-10 mL/hr, ity of infusion 11:00: 11:04 1,000 mL, [place] 1,000 mL 00 :00 IV Medical Infusion, Branch ONCE, 1 dose, On Sat01/10/22 at 0600, STAT HYDROcodone 0 Yes 1{tbl} 1 tablet, Univers -acetaminop 01-10 Oral, ity of hen (NORCO 10:54: Q6HPRN, [place] 5) 5-325 mg 27 Starting Medi efrain tablet 1 on Sat Branch tablet 01/10/22 at 0554, Until Discontinu ed, Routine, Pain (scale 4-6) dextrose 0 Yes 250mL 250 mL, IV Un ela [...] 01-10 Oral, ity of (TYLENOL) 10:52: Q6HPRN, [place] tablet 650 33 Starting Medic al mg on Sat Branch 01/10/22 at 0552, Until Discontinu ed, Routine, Pain (scale 1-3) NaCl 0.9% 0 2021- No 1000mL at 999 Uni vers (NS) bolus 01-10 06-29 mL/hr, ity of infusion 09:00: 08:10 1,000 [...] IV ity of human 07:00: 05:53 Push, [place] (HUMULIN R) 00 :00 ONCE, 1 Medic al injection dose, On Branch 10 Units Sat01/10/22 at 0200, STAT FENTanyl PF No 50ug 50 mcg, [...] dose, On Sat01/09/22 at 2300, STAT insulin 2021-2021- No 10U 10 Units, Univ ers regular 01-10 Slow IV ity of human 04:00: 03:48 Push, [place] (HUMULIN R) 00 :00 ONCE, 1 Medic al injection dose, On Branch 10 Units Sat01/09/22 at 2300, STAT amLODIPine 2021-0 2021- No [id number] 10mg Take 1 Univers 10 mg 6- 07-30 tablet by ity of tablet 00:00: 00:00 mouth [place] 00 :00 daily for Medical 30 days. Branch amLODIPine 2021- No [id number] 10mg Take 1 Univers 10 mg 6-26 07-30 tablet by ity of tablet 00:00: 00:00 mouth [place] 00 :00 daily for Medical 30 days. Branch amLODIPine 0 2021- No [id number] 10mg Take 1 Univers 10 mg 6-26 07-27 tablet by ity of tablet 00:00: 04:59 mouth [place] 00 :00 daily for Medical 30 days. [place] amLODIPine 2021- No [id number] 10mg Take 1 Univers 10 mg 6-26 07-27 tablet by ity of tablet 00:00: 04:59 mouth [place] 00 :00 daily for Medical 30 days. [place] amLODIPine No [id number] 10mg Take 1 Univers 10 mg 6-26 07-27 tablet by ity of tablet 00:00: 04:59 mouth [place] 00 :00 daily for Medical 30 days. [place] amLODIPine 2021- No [id number] 10mg Take 1 Univers 10 mg 6-26 07-27 tablet by ity of tablet 00:00: 04:59 mouth [place] 00 :00 daily for Medical 30 days. [place] amLODIPine 2021- No [id number] 10mg Take 1 Univers 10 mg 6-26 07-27 tablet by ity of tablet 00:00: 04:59 mouth [place] 00 :00 daily for Medical 30 days. [place] amLODIPine 2021- No [id number] 10mg Take 1 Univers 10 mg 6-26 07-27 tablet by ity of tablet 00:00: 04:59 mouth [place] 00 :00 daily for Medical 30 days. [place] amLODIPine 2021- No [id number] 10mg Take 1 Univers 10 mg 6-26 07-27 tablet by ity of tablet 00:00: 04:59 mouth [place] 00 :00 daily for Medical 30 days. [place] HYDROmorpho 2021- No .5mg 0.5 mg, Un ela ne 01-06 06-25 Slow IV ity of (DILAUDID) 18:00: 17:11 Push, [place] injection 00 :00 ONCE, 1 Medical 0.5 mg dose, On Branch 01/06/22 at 1300, Routine
Use approved by (Faculty): [facility] PROVIDER cefTRIAXone Yes 1000mg 1,000 mg, Univers (ROCEPHIN) 01-06 IV ity of 1,000 mg in 15:00: Piggyback, [place] NaCl 0.9% 00 Q24H ABX, Medic al (NS) 50 mL First dose Bra [facility] MINI-BAG on 01/06/22 at 1000, Until Discontinu ed, Administer over 30 Minutes, 50 mL
Reas on for Anti-Infec tive: Documented Infection< br>Documen lester Infection Site: Urine
D uration of Therapy: 7 days fluconazole Yes 200mg 200 mg, Un ela (DIFLUCAN) 01-06 Oral, ity of tablet 200 14:00: DAILY, [place] mg 00 First dose Medical on [facility] Branch 01/06/22 at 0900, Until Discontinu ed, SAHARA
Re ason for Anti-Infec tive: Documented Infection< br>Documen lester Infection Site: Urine
D uration of Therapy: 7 days Sliding Yes Subcutaneo [facility] ers Scale 01-06 us, TID ity of Insulin - 13:00: MEALS+HS, [place] Lispro 00 First dose Medical (HumaLOG) + on [facility] Fsbg 01/06/22 at Testing 0800, Until Discontinu ed, Routine hydromorpho 2021- No 4ug Take 4 mcg Univers ne HCl 01-06 by mouth ity of (HYDROMORPH 11:55: 00:00 every 12 [place] ONE ORAL) 19 :00 (twelve) Medica l hours. [place] insulin 2021- No 10U 10 Units, [place] [facility] lispro 01-06 Subcutaneo ity of (human) 07:00: 06:53 us, ONCE, [place] (HumaLOG 00 :00 1 dose, On Medic al U-100) [facility] injection 01/06/22 at 10 Units 0200, Routine glucagon Yes 1mg 1 mg, Univers (GLUCAGEN 01-06 Intramuscu ity of DIAGNOSTIC 05:50: lar, PRN, [place] KIT) 51 Starting Medical injection 1 on [facility] mg 01/06/22 at 0050, Until Discontinu ed, SAHARA, Blood Glucose < or = 70 mg/dL and patient is unable to swallow or has mental changes. dextrose Yes 250mL 250 mL, IV Un ela 10% (D10W) 01-06 Infusion, ity of bolus 05:50: PRN - SEE [place] infusion 51 INSTRUCTIO Medic al 250 mL [...] Subcutaneo ity o f (LANTUS 02:00: us, [facility], [place] U-100) 00 First dose Medical injection on Fri Branch 52 Units 01/05/22 at 2100, Until Discontinu ed, Routine Sliding 2021- No Subcutaneo Uni vers Scale 01-06 us, TID ity of Insulin - 02:00: 05:50 MEALS+HS, [place] Lispro 00 :40 First dose Medical (HumaLOG) + on Sat Branch Fsbg 01/05/22 at Testing 2100, Until Discontinu ed, Routine ciprofloxac 2021- No [id number] 500mg Take 1 Univers in HCl 500 01-06- tablet by ity of mg tablet 00:00: 04:59 mouth [place] 00 :00 every 12 Medical (twelve) Branch hours for 10 days. ciprofloxac 2021- No [id number] 500mg Take 1 Univers in HCl 500 01-06- tablet by ity of mg tablet 00:00: 04:59 mouth [place] 00 :00 every 12 Medical (twelve) Branch hours for 10 days. ciprofloxac 2021- No [id number] 500mg Take 1 Univers in HCl 500 [...] Indication s: acute pain ciprofloxac 2021- No [id number] 500mg Take 1 Univers in HCl 500 01-06 tablet by ity of mg tablet 00:00: 00:00 mouth [place] 00 :00 every 12 Medical (twelve) Branch hours for 10 days. NaCl 0.9% 2021- No 1000mL at 150 Uni vers (NS) bolus 01-0524 mL/hr, ity of infusion 23:15: 23:38 1,000 mL, Tim [place] 1,000 mL 00 :00 IV Medical Piggyback, Branch ONCE, 1 dose, On Sat01/05/22 at 1815, STAT HYDROmorpho 2021- No 1mg 1 mg, Slow Univers ne 01-0524 IV Push, ity of (DILAUDID) 22:15: 21:46 ONCE, 1 [place] injection 1 00 :00 dose, On Medi efrain mg Sat Branch 01/05/22 at 1715, Routine
Use approved by [...] 01-05 Oral, ity of (DILAUDID) 13:00: Q12H, [place] tablet 4 mg 00 First dose Me dical on Sat Branch 01/05/22 at 0800, Until Discontinu ed insulin 2021-0 Yes 15U 15 Units, Unive rs lispro -24 Subcutaneo ity of (human) 12:30: us, TIDAC, [place] (HumaLOG 00 First dose Medic al U-100) on Sat Branch injection 01/05/22 at 15 Units 0730, Until Discontinu ed, Routine amLODIPine 2021-0 Yes 10mg 10 mg, Unive rs (NORVASC) 24 Oral, ity of tablet 10 08:45: DAILY, [place] mg 00 First dose Medical on Sat Branch 01/05/22 at 0345, Until Discontinu ed, Routine ertapenem 2021-0 202- No 1000mg 1,000 mg, Univers (INVANZ) 01-05 [...] 01-05 Oral, ity of (TYLENOL) 07:37: Q6HPRN, [place] tablet 650 37 Starting Medic al mg on Fri Branch 01/05/22 at 0237, Until Discontinu ed, Routine, Pain (scale 1-3) iopamidol 2021- No [id number] 100mL 100 mL, Univers (ISOVUE 01-05 Intravenou ity o f 370-500 mL) 06:15: 05:05 s, ONCE, 1 [place] injection 00 :00 dose, On Medica l 100 mL Fri Branch 01/05/22 at 0115, Routine insulin 2021- No 10U 10 Units, [facility] ers regular 01-05 IV Push, ity of [...] 1000mL at 999 Uni vers (NS) bolus 6-24 06-24 mL/hr, ity of infusion 04:15: 06:41 1,000 mL, [place] 1,000 mL 00 :00 IV Medical Infusion, Branch ONCE, 1 dose, On Libra 01/04/22 at 2315, STAT hydromorpho 0 Yes 4ug Take 4 mcg Univers ne HCl 6-10 by mouth ity of (HYDROMORPH 19:50: every 12 [place] ONE ORAL) 08 (twelve) Medica l hours. [place] magnesium Yes 400mg 400 mg, Univ ers oxide 6-10 Oral, ity of (MAG-OX 14:00: DAILY, [place] 400) tablet 00 First dose Me dical 400 mg on Sat [place] 12/22/21 at 0900, Until Discontinu ed, Routine HYDROmorpho 2021- No 1mg 1 mg, Slow Univers ne 6-10 06-10 IV Push, ity of (DILAUDID) 05:15: 04:42 ONCE, 1 [place] injection 1 00 :00 dose, On Medi efrain mg Sat [place] 12/22/21 at 0015, Routine
Use approved by (Faculty): [facility] PROVIDER acetaminoph Yes 1000mg 1,000 mg, Univers en 6-10 Oral, Q8H, ity of (TYLENOL) 03:00: First dose [place] tablet 00 on Libra Medical 1,000 mg 12/21/21 at Branch 2200, Until Discontinu ed, Routine insulin Yes [id number] 52U inject 52 U nivers glargine 6-10 Units ity of 100 unit/mL 00:00: under the [place] injection 00 skin at Medical bedtime. Branch insulin 0 Yes [id number] 52U inject 52 U nivers glargine 6-10 Units ity of 100 unit/mL 00:00: under the [place] injection 00 skin at Medical bedtime. Branch insulin 0 Yes [id number] 52U inject 52 U nivers glargine 6-10 Units ity of 100 unit/mL 00:00: under the [place] injection 00 skin at Medical bedtime. Branch insulin 2022-0 Yes [id number] 52U inject 52 U nivers glargine 6-10 Units ity of 100 unit/mL 00:00: under the [place] injection 00 skin at Medical bedtime. Branch insulin 2021-0 Yes [id number] 52U inject 52 U nivers glargine 6-10 Units ity of 100 unit/mL 00:00: under the [place] injection 00 skin at Medical bedtime. Branch insulin 2021-0 Yes [id number] 52U inject 52 U nivers glargine 6-10 Units ity of 100 unit/mL 00:00: under the [place] injection 00 skin at Medical bedtime. Branch insulin 2021-0 Yes [id number] 52U inject 52 U nivers glargine 6-10 Units ity of 100 unit/mL 00:00: under the [place] injection 00 skin at Medical bedtime. Branch insulin 2021-0 Yes [id number] 52U inject 52 U nivers glargine 6-10 Units ity of 100 unit/mL 00:00: under the [place] injection 00 skin at Medical bedtime. Branch insulin 2021-0 2021- No [id number] 52U inject 52 Univers glargine 6-10 07-30 Units ity of 100 unit/mL 00:00: 00:00 under the [place] injection 00 :00 skin at Medical bedtime. Branch insulin 2021-0 2021- No [id number] 52U inject 52 Univers glargine 6-10 07-30 Units ity of 100 unit/mL 00:00: 00:00 under the [place] injection 00 :00 skin at Medical bedtime. Branch Insulin 2021- No [id number] Use as Uni vers Safety 12-22 directed ity of [place], 00:00: 04:59 [place] Disp, 29 00 :00 Medical gauge x Branch 3/16" Ndle Insulin 2021- No [id number] Use as Uni vers Safety 12-22 directed ity of [place], 00:00: 04:59 [place] Disp, 29 00 :00 Medical gauge x Branch 3/16" Ndle Insulin 2021- No [id number] Use as Uni vers Safety 12-22 directed ity of [place], 00:00: 04:59 [place] Disp, 29 00 :00 Medical gauge x Branch 3/16" Ndle Insulin 2021- No [id number] Use as Uni vers Safety 12-22 directed ity of [place], 00:00: 04:59 [place] Disp, 29 00 :00 Medical gauge x Branch 3/16" Ndle Insulin 2021- No [id number] Use as Uni vers Safety 12-22 directed ity of [place], 00:00: 04:59 [place] Disp, 29 00 :00 Medical gauge x Branch 3/16" Ndle Insulin 2021- No [id number] Use as Uni vers Safety 12-22 directed ity of [place], 00:00: 04:59 [place] Disp, 29 00 :00 Medical gauge x Branch 3/16" Ndle Insulin 2021- No [id number] Use as Uni vers Safety 12-22 directed ity of [place], 00:00: 04:59 [place] Disp, 29 00 :00 Medical gauge x Branch 3/16" Ndle fluconazole 2021- No [id number] 200mg Take 1 Univers 200 mg 12-22 [...] 12-21 Subcutaneo ity o f (LANTUS 02:00: , [facility], [place] U-100) 00 First dose Medical injection on Sat Branch 30 Units 12/20/21 at 2100, Until Discontinu ed, Routine HYDROmorpho 2021- No .5mg 0.5 mg, Un ela ne 12-20 Slow IV ity of (DILAUDID) 16:28: 19:33 [...] 12-20 Oral, ity of (DILAUDID) 08:40: 16:28 [id number], [place] tablet 4 mg 04 :14 [...] of 1,000 mg in 05:30: 16:58 Piggyback, [place] NaCl 0.9% 00 :42 Q8H ABX, Medica l (NS) 100 mL First dose Br anch MINI-BAG on Sat12/20/21 at 0030, Until Discontinu ed, Administer over 30 Minutes, 100 mL
Reas on for Anti-Infec tive: Empiric Therapy for Suspected Infection< br>Empiric Therapy Site: Urine
D uration of therapy: 7 days Sliding Yes Subcutaneo [facility] ers Scale 6-08 us, Q4H, ity of Insulin-Reg 05:00: First dose [place] ular + Fsbg 00 on Sat Medica [...] ity of human 01:15: 01:51 from 13.74 [place] (HUMULIN R) 00 :00 Units = Medic [...] On Branch Sat12/19/21 at 1900, SAHARA hydromorpho 2021-0 Yes 4ug Take 4 mcg [...] skin at Medical bedtime. Branch insulin Yes [id number] 15U inject 15 U nivers lispro, 6-06 Units ity of human, 100 00:00: under the [place] unit/mL 00 skin 3 Medical injection (three) Branch times daily before meals. insulin Yes [id number] 52U inject 52 U nivers glargine 6-06 Units ity of 100 unit/mL 00:00: under the [place] injection 00 skin at Medical bedtime. Branch insulin Yes [id number] 15U inject 15 U nivers lispro, 6-06 Units ity of human, 100 00:00: under the [place] unit/mL 00 skin 3 Medical injection (three) Branch times daily before meals. insulin Yes [id number] 15U inject 15 U nivers lispro, 6-06 Units ity of human, 100 00:00: under the [place] unit/mL 00 skin 3 Medical injection (three) Branch times daily before meals. insulin Yes [id number] 15U inject 15 U nivers lispro, 6-06 Units ity of human, 100 00:00: under the [place] unit/mL 00 skin 3 Medical injection (three) Branch times daily before meals. insulin 2021- No [id number] 15U inject 15 Univers lispro, 6-06 07-30 Units ity of human, 100 00:00: 00:00 under the [place] unit/mL 00 :00 skin 3 Medical injection (three) Branch times daily before meals. insulin 2021- No [id number] 15U inject 15 Univers lispro, 6-06 07-30 Units ity of human, 100 00:00: 00:00 under the [place] unit/mL 00 :00 skin 3 Medical injection (three) Branch times daily before meals. insulin 2021- No [id number] 52U inject 52 Univers glargine 6-06 06-10 Units ity of 100 unit/mL 00:00: [...] (scale 7-10)
U se approved by (Faculty): [facility] PROVIDER insulin 0 Yes .4U/kg/ 52 Units Uni vers glargine 605 d (rounded ity of (LANTUS 14:43: from 51.6 [place] U-100) 43 Units = Medical injection 0.4 Branch 52 Units Units/kg/d ay ?129 kg), Subcutaneo us, Q24H, First dose on 12/17/21 at 0944, Until Discontinu ed, Routine HYDROmorpho Yes 4mg 4 mg, Unive rs ne -05 Oral, ity of (DILAUDID) 02:21: Q6HPRN, [place] tablet 4 mg 55 Starting Medi efrain on Sat Branch 12/16/21 at 2121, Until Discontinu ed, Routine, Pain (scale 4-6) HYDROmorpho 2021-0 2021- No 1mg 1 mg, Slow Univers ne 12-17 06-05 IV Push, ity of (DILAUDID) 02:21: 18:05 Q4HPRN, [place] injection 1 39 :59 Starting Medi efrain mg on Sat Branch 12/16/21 at 2121, Until [place] 12/17/21 at 1305, Routine, Pain (scale 7-10)
U se approved by (Faculty): [facility] PROVID[facility] Sliding Yes Subcutaneo Univ ers Scale 6-04 us, Q4H, ity of Insulin - 17:00: First dose [place] lispro 00 on Sat Medical (humaLOG) + 12/16/21 at [facility] Fsbg 1200, Testing Until Discontinu [...] No 4mg 4 mg, Univ ers ne 12-1605 Oral, ity of (DILAUDID) 14:47: 02:22 Q6HPRN, [...] doses, Medical mEq/100 mL First dose Bra [facility] RTU IVPB 20 on Sat mEq 12/15/21 [...] of 1,000 mg in 11:30: 16:04 Piggyback, [place] NaCl 0.9% 00 :40 Q24H ABX, Medic al (NS) 50 mL First dose Bra njh MINI-BAG on Sat12/15/21 at 0630, Until Discontinu ed, Administer over 30 Minutes, 50 mL
Reas on for Anti-Infec tive: Documented Infection< br>Documen lester Infection Site: Urine
D uration of Therapy: 7 days proMETHazin No 25mg 25 mg, IV Univers e 12-1504 Piggyback, ity of (PHENERGAN) 11:22: 15:10 Q6HPRN, [...] 22 :44 Starting Medi efrain mg on Fri Branch 12/15/21 at 0603, Until Sat12/15/21 at [...] mEq 00 :34 Medical Branch D5W 0.45% IV Univers NaCl 12-15 Infusion, ity of [...] IV ity of human 08:15: 07:13 Push, [place] (HUMULIN R) 00 :00 ONCE, 1 Medic [...] IV ity of human 07:15: 06:21 Push, [place] (HUMULIN R) 00 :00 ONCE, 1 Medic al injection 8 dose, On Bran ch Units 12/15/21 at 0215, STAT iopamidol 2021- No [id number] 100mL 100 mL, Univers (ISOVUE 12-15 Intravenou ity o f 370-500 mL) 05:45: 04:31 s, ONCE, 1 [place] injection 00 :00 dose, On Medica l 100 mL 12/15/21 Branch at 0045, Routine meropenem 2021- No 500mg 500 mg, IV Univers (MERREM) 12-15 Piggyback, ity of 500 mg in 05:00: 05:32 ONCE, 1 [place] NaCl 0.9% 00 :00 dose, On Medica l (NS) 50 mL 12/15/21 Bra [facility] MINI-BAG at 0000, Administer over 30 Minutes, [...] :00 dose, On Medical NaCl 0.9% [facility] 12/14/21 Bran ch (NS) 50 mL [...] 1 Medical 100 mcg dose, On Branch Libra 12/14/21 at 2230, STAT cefTRIAXone Yes 2000mg 2,000 mg, Univers (ROCEPHIN) 5-17 Intramuscu ity of injection 21:00: lar, Q24H, [place] 2,000 mg 00 First dose Medic al on Tu Branch 11/28/21 at 1600, Until Discontinu ed, SAHARA
Re ason for Anti-Infec tive: Documented Infection< br>Documen lester Infection Site: Skin / Soft Tissue
Duration of Therapy: Other (see Comments) hydromorpho Yes 4ug Take 4 mcg Univers ne HCl 5-17 by mouth ity of (HYDROMORPH 17:43: every 12 [place] ONE ORAL) 55 (twelve) Medica l hours. Branch hydromorpho Yes 4ug Take 4 mcg Univers ne HCl 5-17 by mouth ity of (HYDROMORPH 17:43: every 12 [place] ONE ORAL) 55 (twelve) Medica l hours. [place] collagenase Yes [id number] Apply to Univers 250 5-17 affected ity of unit/gram 00:00: area(s) [place] ointment 00 daily. Medical Branch collagenase Yes [id number] Apply to Univers 250 5-17 affected ity of unit/gram 00:00: area(s) [place] ointment 00 daily. Medical Branch collagenase 2021-0 Yes [id number] Apply to Univers 250 5-17 affected ity of unit/gram 00:00: area(s) [place] ointment 00 daily. Medical Branch collagenase 0 Yes [id number] Apply to Univers 250 5-17 affected ity of unit/gram 00:00: area(s) [place] ointment 00 daily. [facility] Branch collagenase 2021-0 Yes [id number] Apply to Univers 250 5-17 affected ity of unit/gram 00:00: area(s) [place] ointment 00 daily. [facility] collagenase 2021-0 Yes [id number] Apply to Univers 250 5-17 affected ity of unit/gram 00:00: area(s) [place] ointment 00 daily. [facility] Branch collagenase 2021- Yes [id number] Apply to Univers 250 5-17 affected ity of unit/gram 00:00: area(s) [place] ointment 00 daily. Medical Branch collagenase 2021-0 Yes [id number] Apply to Univers 250 5-17 affected ity of unit/gram 00:00: area(s) [place] ointment 00 daily. Medical Branch collagenase 2021-0 Yes [id number] Apply to Univers 250 5-17 affected ity of unit/gram 00:00: area(s) [place] ointment 00 daily. Medical Branch collagenase 2021-0 Yes [id number] Apply to Univers 250 5-17 affected ity of unit/gram 00:00: area(s) [place] ointment 00 daily. Medical Branch collagenase 2021-0 Yes [id number] Apply to Univers 250 5-17 affected ity of unit/gram 00:00: area(s) [place] ointment 00 daily. Medical Branch collagenase 2021-0 Yes [id number] Apply to Univers 250 5-17 affected ity of unit/gram 00:00: area(s) [place] ointment 00 daily. Medical Branch collagenase 2021-0 Yes [id number] Apply to Univers 250 5-17 affected ity of unit/gram 00:00: area(s) [place] ointment 00 daily. Medical Branch collagenase 2021-0 Yes [id number] Apply to Univers 250 5-17 affected ity of unit/gram 00:00: area(s) [place] ointment 00 daily. Medical Branch collagenase 2021-0 Yes [id number] Apply to Univers 250 5-17 affected ity of unit/gram 00:00: area(s) [place] ointment 00 daily. Medical Branch collagenase 2021-0 Yes [id number] Apply to Univers 250 5-17 affected ity of unit/gram 00:00: area(s) [place] ointment 00 daily. Medical Branch collagenase 2021-0 Yes [id number] Apply to Univers 250 5-17 affected ity of unit/gram 00:00: area(s) [place] ointment 00 daily. Medical Branch collagenase 2021-0 Yes [id number] Apply to Univers 250 5-17 affected ity of unit/gram 00:00: area(s) [place] ointment 00 daily. Medical Branch collagenase 2021-0 Yes [id number] Apply to Univers 250 5-17 affected ity of unit/gram 00:00: area(s) [place] ointment 00 daily. Medical Branch collagenase 2021-0 Yes [id number] Apply to Univers 250 5-17 affected ity of unit/gram 00:00: area(s) [place] ointment 00 daily. Medical Branch collagenase 2021-0 Yes [id number] Apply to Univers 250 5-17 affected ity of unit/gram 00:00: area(s) [place] ointment 00 daily. Medical Branch collagenase 2021-0 Yes [id number] Apply to Univers 250 5-17 affected ity of unit/gram 00:00: area(s) [place] ointment 00 daily. Medical Branch collagenase 2021-0 Yes [id number] Apply to Univers 250 5-17 affected ity of unit/gram 00:00: area(s) [place] ointment 00 daily. Medical Branch collagenase 2021-0 Yes [id number] Apply to Univers 250 5-17 affected ity of unit/gram 00:00: area(s) [place] ointment 00 daily. Medical Branch collagenase 2021-0 Yes [id number] Apply to Univers 250 5-17 affected ity of unit/gram 00:00: area(s) [place] ointment 00 daily. Medical Branch collagenase 2021-0 Yes [id number] Apply to Univers 250 5-17 affected ity of unit/gram 00:00: area(s) [place] ointment 00 daily. Medical Branch collagenase 2021-0 Yes [id number] Apply to Univers 250 5-17 affected ity of unit/gram 00:00: area(s) [place] ointment 00 daily. Medical Branch collagenase 2021-0 Yes [id number] Apply to Univers 250 5-17 affected ity of unit/gram 00:00: area(s) [place] ointment 00 daily. Medical Branch collagenase 2021-0 Yes [id number] Apply to Univers 250 5-17 affected ity of unit/gram 00:00: area(s) [place] ointment 00 daily. Medical Branch collagenase 2021-0 Yes [id number] Apply to Univers 250 5-17 affected ity of unit/gram 00:00: area(s) [place] ointment 00 daily. Medical Branch collagenase 2021-0 Yes [id number] Apply to Univers 250 5-17 affected ity of unit/gram 00:00: area(s) [place] ointment 00 daily. Medical Branch collagenase 2021-0 Yes [id number] Apply to Univers 250 5-17 affected ity of unit/gram 00:00: area(s) [place] ointment 00 daily. Medical Branch collagenase 2021-0 Yes [id number] Apply to Univers 250 5-17 affected ity of unit/gram 00:00: area(s) [place] ointment 00 daily. Medical Branch collagenase 2021-0 Yes [id number] Apply to Univers 250 5-17 affected ity of unit/gram 00:00: area(s) [place] ointment 00 daily. Medical Branch collagenase 2021-0 Yes [id number] Apply to Univers 250 5-17 affected ity of unit/gram 00:00: area(s) [place] ointment 00 daily. Medical Branch collagenase 2021-0 Yes [id number] Apply to Univers 250 5-17 affected ity of unit/gram 00:00: area(s) [place] ointment 00 daily. Medical Branch collagenase 2021-0 Yes [id number] Apply to Univers 250 5-17 affected ity of unit/gram 00:00: area(s) [place] ointment 00 daily. Medical Branch collagenase 2021-0 Yes [id number] Apply to Univers 250 5-17 affected ity of unit/gram 00:00: area(s) [place] ointment 00 daily. Medical Branch collagenase 2021-0 Yes [id number] Apply to Univers 250 5-17 affected ity of unit/gram 00:00: area(s) [place] ointment 00 daily. Medical Branch collagenase 2021-0 Yes [id number] Apply to Univers 250 5-17 affected ity of unit/gram 00:00: area(s) [place] ointment 00 daily. Medical Branch collagenase 2021-0 Yes [id number] Apply to Univers 250 5-17 affected ity of unit/gram 00:00: area(s) [place] ointment 00 daily. Medical Branch collagenase 2021-0 Yes [id number] Apply to Univers 250 5-17 affected ity of unit/gram 00:00: area(s) [place] ointment 00 daily. Medical Branch collagenase 2021-0 Yes [id number] Apply to Univers 250 5-17 affected ity of unit/gram 00:00: area(s) [place] ointment 00 daily. Medical Branch collagenase 2021-0 Yes [id number] Apply to Univers 250 5-17 affected ity of unit/gram 00:00: area(s) [place] ointment 00 daily. Medical Branch collagenase 2021-0 Yes [id number] Apply to Univers 250 5-17 affected ity of unit/gram 00:00: area(s) [place] ointment 00 daily. Medical Branch collagenase 2021-0 Yes [id number] Apply to Univers 250 5-17 affected ity of unit/gram 00:00: area(s) [place] ointment 00 daily. Medical Branch collagenase 2021-0 Yes [id number] Apply to Univers 250 5-17 affected ity of unit/gram 00:00: area(s) [place] ointment 00 daily. Medical Branch collagenase 2021-0 Yes [id number] Apply to Univers 250 5-17 affected ity of unit/gram 00:00: area(s) [place] ointment 00 daily. Medical Branch collagenase 2021-0 Yes [id number] Apply to Univers 250 5-17 affected ity of unit/gram 00:00: area(s) [place] ointment 00 daily. Medical Branch collagenase 2021-0 Yes [id number] Apply to Univers 250 5-17 affected ity of unit/gram 00:00: area(s) [place] ointment 00 daily. Medical Branch collagenase 2021-0 Yes [id number] Apply to Univers 250 5-17 affected ity of unit/gram 00:00: area(s) [place] ointment 00 daily. Medical Branch collagenase 2021-0 Yes [id number] Apply to Univers 250 5-17 affected ity of unit/gram 00:00: area(s) [place] ointment 00 daily. Medical Branch collagenase 2021-0 Yes [id number] Apply to Univers 250 5-17 affected ity of unit/gram 00:00: area(s) [place] ointment 00 daily. Medical Branch collagenase 2021-0 Yes [id number] Apply to Univers 250 5-17 affected ity of unit/gram 00:00: area(s) [place] ointment 00 daily. Medical Branch collagenase 2021-0 Yes [id number] Apply to Univers 250 5-17 affected ity of unit/gram 00:00: area(s) [place] ointment 00 daily. Medical Branch collagenase 2021-0 Yes [id number] Apply to Univers 250 5-17 affected ity of unit/gram 00:00: area(s) [place] ointment 00 daily. Medical Branch collagenase 2021-0 Yes [id number] Apply to Univers 250 5-17 affected ity of unit/gram 00:00: area(s) [place] ointment 00 daily. Medical Branch collagenase 2021-0 Yes [id number] Apply to Univers 250 5-17 affected ity of unit/gram 00:00: area(s) [place] ointment 00 daily. Medical Branch collagenase 2021-0 Yes [id number] Apply to Univers 250 5-17 affected ity of unit/gram 00:00: area(s) [place] ointment 00 daily. Medical Branch collagenase 2021-0 Yes [id number] Apply to Univers 250 5-17 affected ity of unit/gram 00:00: area(s) [place] ointment 00 daily. Medical Branch collagenase 2021-0 Yes [id number] Apply to Univers 250 5-17 affected ity of unit/gram 00:00: area(s) [place] ointment 00 daily. Medical Branch collagenase 2021-0 Yes [id number] Apply to Univers 250 5-17 affected ity of unit/gram 00:00: area(s) [place] ointment 00 daily. Medical Branch collagenase 2021-0 Yes [id number] Apply to Univers 250 5-17 affected ity of unit/gram 00:00: area(s) [place] ointment 00 daily. Medical Branch collagenase 2021-0 Yes [id number] Apply to Univers 250 5-17 affected ity of unit/gram 00:00: area(s) [place] ointment 00 daily. Medical Branch collagenase 2021-0 Yes [id number] Apply to Univers 250 5-17 affected ity of unit/gram 00:00: area(s) [place] ointment 00 daily. Medical Branch collagenase 2021-0 Yes [id number] Apply to Univers 250 5-17 affected ity of unit/gram 00:00: area(s) [place] ointment 00 daily. Medical Branch collagenase 2021-0 Yes [id number] Apply to Univers 250 5-17 affected ity of unit/gram 00:00: area(s) [place] ointment 00 daily. Medical Branch collagenase 2021-0 Yes [id number] Apply to Univers 250 5-17 affected ity of unit/gram 00:00: area(s) [place] ointment 00 daily. Medical Branch collagenase Yes [id number] Apply to Univers 250 5-17 affected ity of unit/gram 00:00: area(s) [place] ointment 00 daily. Medical Branch collagenase Yes [id number] Apply to Univers 250 5-17 affected ity of unit/gram 00:00: area(s) [place] ointment 00 daily. Medical Branch collagenase Yes [id number] Apply to Univers 250 5-17 affected ity of unit/gram 00:00: area(s) [place] ointment 00 daily. Medical Branch collagenase Yes [id number] Apply to Univers 250 5-17 affected ity of unit/gram 00:00: area(s) [place] ointment 00 daily. Medical Branch collagenase Yes [id number] Apply to Univers 250 5-17 affected ity of unit/gram 00:00: area(s) [place] ointment 00 daily. Medical Branch collagenase Yes [id number] Apply to Univers 250 5-17 affected ity of unit/gram 00:00: area(s) [place] ointment 00 daily. Medical Branch collagenase 0 Yes [id number] Apply to Univers 250 5-17 affected ity of unit/gram 00:00: area(s) [place] ointment 00 daily. Medical Branch collagenase Yes [id number] Apply to Univers 250 5-17 affected ity of unit/gram 00:00: area(s) [place] ointment 00 daily. Medical Branch collagenase 0 Yes [id number] Apply to Univers 250 5-17 affected ity of unit/gram 00:00: area(s) [place] ointment 00 daily. Medical Branch collagenase 0 Yes [id number] Apply to Univers 250 5-17 affected ity of unit/gram 00:00: area(s) [place] ointment 00 daily. Medical Branch docusate 2021- No [id number] 100mg Take 1 U nivers 100 mg 11-28 capsule by ity of capsule 00:00: 04:59 mouth 2 [place] 00 :00 (two) Medical times Branch daily for 30 days. lactobacill 2021- No [id number] .5mg Take 1 Univers us 5-17 06-17 tablet by ity of acidophilus 00:00: 04:59 mouth 2 [place] 00 :00 (two) Medical times [place] daily for 30 days. sennosides 2021- No [id number] 8.6mg Take 1 Univers 8.6 mg 5-17 06-17 tablet by ity of tablet 00:00: 04:59 mouth 2 [place] 00 :00 (two) Medical times [place] daily for 30 days. tamsulosin 2021- No [id number] .4mg Take 1 Univers 0.4 mg 24 5-17 06-17 capsule by ity of hr capsule 00:00: 04:59 mouth [place] 00 :00 daily for Medical 30 days. Branch docusate 2021- No [id number] 100mg Take 1 U nivers 100 mg 5-17 06-17 capsule by ity of capsule 00:00: 04:59 mouth 2 [place] 00 :00 (two) Medical times [place] daily for 30 days. lactobacill 2021- No [id number] .5mg Take 1 Univers us 5-17 06-17 tablet by ity of acidophilus 00:00: 04:59 mouth 2 [place] :[place] ([facility]) Medical times [place] daily for 30 days. sennosides 2021- No [id number] 8.6mg Take 1 Univers 8.6 mg 5-17 06-17 tablet by ity of tablet 00:00: 04:59 mouth 2 [place] 00 :00 (two) Medical times [place] daily for 30 days. tamsulosin 2021- No [id number] .4mg Take 1 Univers 0.4 mg 24 5-17 06-17 capsule by ity of hr capsule 00:00: 04:59 mouth [place] 00 :00 daily for Medical 30 days. Branch docusate 2021- No [id number] 100mg Take 1 U nivers 100 mg 5-17 06-17 capsule by ity of capsule 00:00: 04:59 mouth 2 [place] 00 :00 (two) Medical times [place] daily for 30 days. lactobacill 2021- No [id number] .5mg Take 1 Univers us 5-17 06-17 tablet by ity of acidophilus 00:00: 04:59 mouth 2 [place] 00 :00 (two) Medical times Branch daily for 30 days. sennosides 2021- No [id number] 8.6mg Take 1 Univers 8.6 mg 5-17 06-17 tablet by ity of tablet 00:00: 04:59 mouth 2 [place] 00 :00 (two) Medical times Branch daily for 30 days. tamsulosin 2021- No [id number] .4mg Take 1 Univers 0.4 mg 24 5-17 06-17 capsule by ity of hr capsule 00:00: 04:59 mouth [place] 00 :00 daily for Medical 30 days. Branch docusate 2021- No [id number] 100mg Take 1 U nivers 100 mg 5-17 06-17 capsule by ity of capsule 00:00: 04:59 mouth 2 [place] 00 :00 (two) Medical times Branch daily for 30 days. lactobacill 2021- No [id number] .5mg Take 1 Univers us 5-17 06-17 tablet by ity of acidophilus 00:00: 04:59 mouth 2 [place] 00 :00 (two) Medical times Branch daily for 30 days. sennosides 2021- No [id number] 8.6mg Take 1 Univers 8.6 mg 5-17 06-17 tablet by ity of tablet 00:00: 04:59 mouth 2 [place] 00 :00 (two) Medical times Branch daily for 30 days. tamsulosin 2021- No [id number] .4mg Take 1 Univers 0.4 mg 24 5-17 06-17 capsule by ity of hr capsule 00:00: 04:59 mouth [place] 00 :00 daily for Medical 30 days. Branch docusate 2021- No [id number] 100mg Take 1 U nivers 100 mg 5-17 06-17 capsule by ity of capsule 00:00: 04:59 mouth 2 [place] 00 :00 (two) Medical times Branch daily for 30 days. lactobacill 2021- No [id number] .5mg Take 1 Univers us 5-17 06-17 tablet by ity of acidophilus 00:00: 04:59 mouth 2 [place] 00 :00 (two) Medical times Branch daily for 30 days. sennosides 2021- No [id number] 8.6mg Take 1 Univers 8.6 mg 11-28- tablet by ity of tablet 00:00: 04:59 mouth 2 [place] 00 :00 (two) Medical times Branch daily for 30 days. tamsulosin 2021- No [id number] .4mg Take 1 Univers 0.4 mg 24 11-28- capsule by ity of hr capsule 00:00: 04:59 mouth [place] 00 :00 daily for Medical 30 days. Branch metroNIDAZO 2021- No [id number] 500mg Take 1 Univers LE 500 mg 11-28- tablet by ity of tablet 00:00: 04:59 mouth [place] 00 :00 every 12 Medical (twelve) Branch hours for 3 days. metroNIDAZO 2021- No [id number] 500mg Take 1 Univers LE 500 mg 11-28- tablet by ity of tablet 00:00: 04:59 mouth [place] 00 :00 every 12 Medical (twelve) Branch hours for 3 days. metroNIDAZO 2021- No 500mg 500 mg, U nivers LE (FLAGYL) 11-26- Oral, Q12H i ty of tablet 500 [...] (Apply To ity of ointment 22:15: Affected [place] 00 Areas), Medical DAILY, Branch First dose [...]
Durat ion of therapy: 7 days sennosides 2021-0 Yes 8.6mg 8.6 mg, Uni vers (SENOKOT) [...] Branch 0800, Until Discontinu ed, Routine ceFEPIme 2021-0 2021- No 2g 2 g, IV Unive [...] Sat11/22/21 at 0030, STAT iopamidol 2021- No [id number] 150mL 150 mL, Univers (ISOVUE 11-22 Intravenou ity o f 370-500 mL) 04:45: 03:34 s, ONCE, 1 [place] injection 00 :00 dose, On Medica l 150 mL e [place] 11/21/21 at 2345, Routine ceFEPIme 2021- No [...] [facility] 11/21/21 at 2245, STAT OXYCODONE 2021- No Take by [facility] ers HCL/ACETAMI 11-22 mouth. ity o f NOPHEN 03:22: 00:00 [place] (PERCOCET 50 :00 Medical ORAL) Branch FENTanyl PF 2021- No 100ug 100 mcg, Univers (SUBLIMAZE 11-22 Slow IV ity o f (PF)) 01:30: 01:12 Push, [place] injection 00 :00 ONCE, 1 Medical 100 mcg dose, On Branch [facility] 11/21/21 at 2030, STAT Lovenox No Notes: [place] 4-13 (Same as: l 17:00: Lovenox) [place] 00 Lovenox No Notes: [place] 4-13 (Same as: l 17:00: Lovenox) [place] 00 Lovenox No Notes: [place] 4-13 (Same as: l 17:00: Lovenox) [place] Lovenox No Notes: [place] 4-13 (Same as: l 17:00: Lovenox) [place] 00 Lovenox No Notes: [place] 4-13 (Same [...] Phenergan) [place] 00 promethazin No Notes: Erwin benajmin e 4-13 (Same as: l 16:47: Phenergan) [...] solution 00 ION (Same as: Proventil) albuterol 0 No Notes: SEE Me moria 0.083% 4-13 RT l inhalation 16:46: DOCUMENTAT H ermann solution 00 ION (Same as: Proventil) albuterol 0 No Notes: SEE [place] mor[place] 0.083% 4-13 RT l inhalation 16:46: DOCUMENTAT H ermann solution 00 ION (Same as: Proventil) hydromorpho 2021-0 Yes 4 mg = 1 Me moria ne 4 mg 4-13 tab, PO, l oral tablet 16:43: Q12H, 0 Her manzo 00 Refill(s) hydromorpho 2021-0 Yes 4 mg = 1 Me moria ne 4 mg 4-13 tab, PO, l oral tablet 16:43: Q12H, 0 Her manzo 00 Refill(s) hydromorpho 2021-0 Yes 4 mg = 1 Me moria ne 4 mg 4-13 tab, PO, l oral tablet 16:43: Q12H, 0 Her manzo 00 Refill(s) hydromorpho 2021-0 Yes 4 mg = 1 Me moria ne 4 mg 4-13 tab, PO, l oral tablet 16:43: Q12H, 0 Her manzo 00 Refill(s) hydromorpho 2021-0 Yes 4 mg = 1 Me moria ne 4 mg 4-13 tab, PO, l oral tablet 16:43: Q12H, 0 Her manzo 00 Refill(s) hydromorpho 2021-0 Yes 4 mg = 1 Me moria ne 4 mg 4-13 tab, PO, l oral tablet 16:43: Q12H, 0 Her manzo 00 Refill(s) hydromorpho 2021-0 Yes 4 mg = 1 Me moria [...] 4-13 SUB-Q, l 16:40: Daily, 0 [place] 00 Refill(s) Lantus 100 2021-0 No 10 unit, Mem oria units/mL 4-13 SUB-Q, l 16:40: Daily, 0 [place] 00 Refill(s) Lantus 100 2021-0 No 10 unit, Mem oria units/mL 4-13 SUB-Q, l 16:40: Daily, 0 [place] 00 Refill(s) Lantus 100 2021-0 No 10 unit, Mem oria units/mL 4-13 SUB-Q, l 16:40: Daily, 0 [place] Refill(s) Lantus 100 2021-0 No 10 unit, Mem oria units/mL 4-13 SUB-Q, l 16:40: Daily, 0 [place] 00 Refill(s) Lantus 100 2021-0 No 10 [...] units/mL 4-12 0.1 mL, l 14:00: Route: [place] 00 SUB-Q, Drug form: SOLN, Daily, Dosing [...] As: l water 10 mL 06:00: Maxipime) MEDICATION WASTE Product Size: 1000 mg [...] 4-12 (Same as: l 05:00: Humalog) [place] Roll in palms of hands gently; Do [...] 4-12 (Same as: l 05:00: Humalog) [place] 00 Roll in palms of hands gently; [...] 4-12 (Same as: l 05:00: Humalog) [place] 00 Roll in palms of hands gently; [...] water 10 mL 05:00: Maxipime) [place] 00 MEDICATION WASTE Product [...] Memoria 4-11 (Same as: l 16:53: Dilaudid) [place] Dilaudid No Notes: Memoria 4-11 (Same as: [...] units/mL 4-11 0.1 mL, l 16:24: Route: [place] SUB-Q, Drug form: SOLN, ONCE, Dosing Weight [...] IV 4-11 500 ml/hr, l 15:15: Infuse [place] 00 Over: 1 hr, Route: IV, 500, Drug form: INJ, ONCE, Priority: STAT, Dosing Weight 127.727 kg, Start date: 10/23/21 10:15:00 CDT, Stop date: 10/23/21 10:15:00 CDT, 0 NS (Bolus) 0 No 500 mL, Erwin benjamin IV 4-11 500 ml/hr, l 15:15: Infuse [place] 00 Over: 1 hr, Route: IV, 500, Drug form: INJ, ONCE, Priority: STAT, Dosing Weight 127.727 kg, Start date: 10/23/21 10:15:00 CDT, Stop date: 10/23/21 10:15:00 CDT, 0 NS (Bolus) 0 No 500 mL, Erwin benjamin IV 4-11 500 ml/hr, l 15:15: Infuse [place] 00 Over: 1 hr, Route: IV, 500, Drug form: INJ, ONCE, Priority: STAT, Dosing Weight 127.727 kg, Start date: 10/23/21 10:15:00 CDT, Stop date: 10/23/21 10:15:00 CDT, 0 NS (Bolus) 2021-0 No 500 mL, Erwin benjamin IV 4-11 500 ml/hr, l 15:15: Infuse [place] 00 Over: 1 hr, Route: IV, 500, [...] IV 4-11 500 ml/hr, l 15:15: Infuse [place] 00 Over: 1 hr, Route: IV, 500, Drug form: INJ, ONCE, Priority: STAT, Dosing Weight 127.727 kg, Start date: 10/23/21 10:15:00 CDT, Stop date: 10/23/21 10:15:00 CDT, 0 Dextrose 2022-0 No 12.5 gm, Memor ia 50% Syringe 4-11 25 mL, l (D50W) 13:59: Route: 00 IVP, Drug Form: INJ, Dosing Weight 127.727, kg, PRN, PRN Blood Glucose Results, Start date: 10/23/21 8:59:00 CDT, Duration: 30 day, Stop date: 11/22/21 8:58:00 CDT, 0 glucagon 2022-0 No 1 mg, Memoria 4-11 Route: IM, l 13:59: Drug form: [place] 00 PDR/INJ, PRN, Dosing Weight 127.727, kg, PRN Blood Glucose Results, Start date: 10/23/21 8:59:00 CDT, Duration: 30 day, Stop date: 11/22/21 8:58:00 CDT, 0 insulin 2022-0 No Notes: [facility] lispro 4-11 (Same as: l 13:59: Humalog) Roll in palms of hands gently; Do not shake vigorously . WASTE: F/P - Black; E - [employer] Trash Bin Stable for 28 days at [...] 4-11 (Same as: l 13:59: Humalog) [place] 00 Roll in palms of hands gently; [...] 4-11 (Same as: l 13:59: Humalog) [place] 00 Roll in palms of hands gently; [...] 4-11 Route: IM, l 13:59: Drug form: [place] 00 PDR/INJ, PRN, Dosing Weight 127.727, kg, [...] -11 25 mL, l (D50W) 13:59: Route: [place] 00 IVP, Drug Form: INJ, Dosing Weight [...] Memoria 4-11 (Same as: l 02:00: Lyrica) [place] 00 Lyrica No Notes: Memoria 4-11 (Same as: l 02:00: Lyrica) [place] Lyrica No Notes: Memoria 4-11 (Same as: l 02:00: Lyrica) [place] 00 Lyrica No Notes: [place] 4-11 (Same as: l 02:00: Lyrica) [place] 00 Lyrica No Notes: [facility]oria 4-11 (Same as: l 02:00: Lyrica) valproic No Notes: Memoria acid 100 4-10 Dilute in l mg/mL 17:00: at least [place] intravenous 00 50ml D5W solution + or NS. Sodium Infusion Chloride rate = 20 0.9% IV 50 mg/min mL (Same As: Depacon) Hazardous Drug Group 3:Reproduc tive risk Hazardous Drug -- Refer to safe handling procedure PPE Matrix valproic No Notes: Memoria acid 100 4-10 Dilute in l mg/mL 17:00: at least [place] intravenous 00 50ml D5W solution + or [...] in l mg/mL 17:00: at least [place] intravenous 00 50ml D5W solution + or [...] in l mg/mL 17:00: at least [place] intravenous 00 50ml D5W solution + or NS. Sodium Infusion Chloride rate = 20 0.9% IV 50 mg/min mL (Same As: Depacon) Hazardous Drug Group 3:Reproduc tive risk Hazardous Drug -- Refer to safe handling procedure PPE Matrix valproic No Notes: Memoria acid 100 4-10 Dilute in l mg/mL 17:00: at least [place] intravenous 00 50ml D5W solution + or NS. Sodium Infusion Chloride rate = 20 0.9% IV 50 mg/min mL (Same As: Depacon) Hazardous Drug Group 3:Reproduc tive risk Hazardous Drug -- Refer to safe handling procedure PPE Matrix Solu-MEDROL No Notes: Erwin benjamin 4-10 (Same l 16:43: as:Solu-[place] 00 DROL, A-Methapre d) MEDICATION WASTE Product Size: 1000 mg Product Wasted: _0__ mg magnesium No Notes: Memori a sulfate 4-10 WASTE: F/P l 16:43: - Sink; E [place] 00 - [facility] Solu-MEDROL No Notes: Erwin benjamin 4-10 (Same l 16:43: as:Solu-[place] 00 DROL, A-Methapre d) MEDICATION WASTE Product Size: 1000 mg Product Wasted: _0__ mg magnesium No Notes: Memori a sulfate 4-10 WASTE: F/P l 16:43: - Sink; E [place] 00 - [facility] No Notes: Erwin benjamin 4-10 (Same l 16:43: as:Solu-[place] 00 DROL, A-Methapre d) MEDICATION WASTE Product Size: 1000 mg Product Wasted: _0__ mg magnesium No Notes: Memori a sulfate 4-10 WASTE: F/P l 16:43: - Sink; - [facility] No Notes: Erwin benjamin 4-10 (Same l 16:43: as:Solu-[place] 00 DROL, A-Methapre d) MEDICATION WASTE Product Size: 1000 mg Product Wasted: _0__ mg magnesium No Notes: Memori a sulfate 4-10 WASTE: F/P l 16:43: - Sink; - [facility] No Notes: Erwin ebnjamin 4-10 (Same l 16:43: as:[facility] Jason 00 DROL, A-Methapre d) MEDICATION WASTE Product Size: 1000 mg Product Wasted: _0__ mg magnesium No Notes: Memori a sulfate 4-10 WASTE: F/P l 16:43: - Sink; - [facility] No Notes: Erwin benjamin 4-10 (Same l 16:43: as:Solu-[place] 00 DROL, A-Methapre d) MEDICATION WASTE Product Size: 1000 mg Product Wasted: _0__ mg magnesium No Notes: Memori a sulfate 4-10 WASTE: F/P l 16:43: - Sink; [facility] - [facility] No Notes: Erwin benjamin 4-10 (Same l 16:43: as:Solu-[place] 00 DROL, A-Methapre d) MEDICATION WASTE Product Size: 1000 mg Product Wasted: _0__ mg magnesium No Notes: Memori a sulfate 4-10 WASTE: F/P l 16:43: - Sink; E [place] 00 - [facility] amitriptyli No Notes: Erwin benjamin ne 4-10 (Same as: l 02:00: Elavil) [place] 00 amitriptyli No Notes: Erwin benjamin ne 4-10 (Same as: l 02:00: Elavil) [place] 00 amitriptyli No Notes: Erwin benjamin ne 4-10 (Same as: l 02:00: Elavil) [place] 00 amitriptyli No Notes: Erwin benjamin ne 4-10 (Same as: l 02:00: Elavil) [place] 00 amitriptyli No Notes: Erwin benjamni ne 4-10 (Same as: l 02:00: Elavil) [place] 00 amitriptyli No Notes: Erwin benjamin ne 4-10 (Same as: l 02:00: Elavil) [place] 00 amitriptyli No Notes: Erwin benjamin ne 4-10 (Same as: l 02:00: Elavil) [place] 00 SUMAtriptan No Notes: Erwin benjamin 4-09 (Same As: l 18:45: Imitrex) SUMAtriptan No Notes: Erwin benjamin 4-09 (Same As: l 18:45: Imitrex) SUMAtriptan No Notes: Erwin benjamin 4-09 (Same As: l 18:45: Imitrex) [place] 00 SUMAtriptan No Notes: Erwin benjamin 4-09 (Same As: l 18:45: Imitrex) [place] 00 SUMAtriptan No Notes: Erwin benjamin 4-09 (Same As: l 18:45: Imitrex) [place] 00 SUMAtriptan No Notes: Erwin benjamin 4-09 (Same As: l 18:45: Imitrex) [place] 00 SUMAtriptan No Notes: Erwin benjamin 4-09 (Same As: l 18:45: Imitrex) [place] 00 promethazin 2022-0 No 6.25 mg, Me moria [...] moria e - Route: l 18:44: IVPB, [place] 00 Q12H, Dosing Weight 127.727, kg, PRN [...] e 4-09 Route: l 18:44: IVPB, [place] 00 Q12H, Dosing Weight 127.727, kg, PRN [...] 4-09 (Same as: l 18:33: Phenergan) [place] 00 6.25 mg = 1/2 x 12.5 mg TAB Phenergan No Notes: Memori a 4-09 (Same as: l 18:33: Phenergan) [place] 00 6.25 mg = 1/2 x 12.5 mg TAB Phenergan No Notes: Memori a 4-09 (Same as: l 18:33: Phenergan) [place] 00 6.25 mg = 1/2 x 12.5 mg TAB Phenergan No Notes: Memori a 4-09 (Same as: l 18:33: Phenergan) [place] 00 6.25 mg = 1/2 x 12.5 mg TAB Phenergan No Notes: Memori a 4-09 (Same as: l 18:33: Phenergan) [place] 6.25 mg = 1/2 x 12.5 mg TAB ascorbic No Notes: Memoria acid 4-09 (Same as: l 14:00: Vitamin C) [place] celecoxib No Notes: Memori a 4-09 NSAID. l 14:00: Please [place] 00 check indication . Not for seizure. (Same As: CeleBREX) Lidoderm 5% No Notes: Erwin benjamin topical -09 Apply only l film 14:00: once for [place] (patch) 00 up to 12 hours in [...] 4-09 (Same as: l 14:00: Vitamin C) [place] celecoxib No Notes: Memori a 4-09 NSAID. l 14:00: Please [place] 00 check indication . Not for seizure. (Same As: CeleBREX) Lidoderm 5% No Notes: Erwin benjamin topical 4-09 Apply only l film 14:00: once for [place] (patch) 00 up to 12 hours in a 24-hour period (12 hours on and 12 hours off). (Same as: Aspercreme Lidocaine Patch) "Remove old patch before applicatio n of new patch" zinc No Notes: Memoria sulfate 4-09 (Zinc l 14:00: sulfate [place] 00 capsule) - 220 mg Zinc sulfate = 50 mg elemental zinc Same as Zinc Sulfate ascorbic No Notes: Memoria acid 4-09 (Same as: l 14:00: Vitamin C) [place] celecoxib No Notes: Memori a 4-09 NSAID. l 14:00: Please [place] 00 check indication . Not for seizure. (Same As: CeleBREX) Lidoderm 5% No Notes: Erwin benjamin topical 4-09 Apply only l film 14:00: once for [place] (patch) 00 up to 12 hours in a 24-hour period (12 hours on and 12 hours off). (Same as: Aspercreme Lidocaine Patch) "Remove old patch before applicatio n of new patch" zinc No Notes: Memoria sulfate 4-09 (Zinc l 14:00: sulfate [place] 00 capsule) - 220 mg Zinc sulfate = 50 mg elemental zinc Same as Zinc Sulfate ascorbic No Notes: Memoria acid 4-09 (Same as: l 14:00: Vitamin C) [place] 00 celecoxib 0 No Notes: Memori a 4-09 NSAID. l 14:00: Please [place] 00 check indication . Not for seizure. (Same As: CeleBREX) Lidoderm 5% 0 No Notes: Erwin benjamin topical 4-09 Apply only l film 14:00: once for [place] (patch) 00 up to 12 hours in [...] a 4-09 NSAID. l 14:00: Please [place] 00 check indication . Not for seizure. [...] Memoria sulfate 4-09 (Zinc l 14:00: sulfate [place] 00 capsule) - 220 mg Zinc sulfate = 50 mg elemental zinc Same as Zinc Sulfate ascorbic No Notes: Memoria acid 4-09 (Same as: l 14:00: Vitamin C) [place] 00 celecoxib 2021-0 No Notes: Memori a [...] Memoria sulfate 4-09 (Zinc l 14:00: sulfate [place] 00 capsule) - 220 mg Zinc sulfate = 50 mg elemental zinc Same as Zinc Sulfate ascorbic No Notes: Memoria acid - (Same as: l 14:00: Vitamin C) [place] celecoxib No Notes: Memori a - NSAID. l 14:00: Please [place] 00 check indication . Not for seizure. (Same As: CeleBREX) Lidoderm 5% No Notes: Erwin benjamin topical 10-21 Apply only l film 14:00: once for [place] (patch) 00 up to 12 hours in a 24-hour period (12 hours on and 12 hours off). (Same as: Aspercreme Lidocaine Patch) "Remove old patch before applicatio n of new patch" zinc No Notes: Memoria sulfate 10-21 (Zinc l 14:00: sulfate [place] capsule) - 220 mg Zinc sulfate = [...] mg Product Wasted: _0__ mg cefepime + 0 No Notes: Memor ia sterile - (Same As: l water 10 mL 12:00: Maxipime) H [place] 00 MEDICATION WASTE Product Size: 1000 mg Product Wasted: _0__ mg cefepime + 2021- No Notes: Memor ia sterile 4-09 (Same As: l water 10 mL 12:00: Maxipime) H erm 00 MEDICATION WASTE Product Size: 1000 mg Product Wasted: _0__ mg cefepime + 0 No Notes: Memor ia sterile 4- (Same As: l water 10 mL 12:00: Maxipime) H erm 00 MEDICATION WASTE Product Size: 1000 mg Product Wasted: _0__ mg hydromorpho No Notes: Erwin benjamin ne 4- (Same as: l 09:39: Dilaudid) [place] hydromorpho No Notes: Erwin benjamin ne 4- (Same as: l 09:39: Dilaudid) [place] hydromorpho No Notes: Erwin benjamin ne 4- (Same as: l 09:39: Dilaudid) [place] hydromorpho No Notes: Erwin benjamin ne 4-09 (Same as: l 09:39: Dilaudid) [place] hydromorpho 2021-0 No Notes: Erwin benjamin ne 4-09 (Same as: l 09:39: Dilaudid) [place] hydromorpho No Notes: Erwin benjamin ne 4-09 (Same as: l 09:39: Dilaudid) [place] hydromorpho 0 No Notes: Erwin benjamin ne 4-09 (Same as: l 09:39: Dilaudid) [place] methocarbam 2021-0 No Notes: Erwin benjamin ol 4-09 (Same l 05:00: as:Robaxin [place] 00 ) methocarbam 2021-0 No Notes: Erwin benjamin ol 4-09 (Same l 05:00: as:Robaxin [place] 00 ) methocarbam 2021-0 No Notes: Erwin benjamin ol 4-09 (Same l 05:00: as:Robaxin [place] 00 ) methocarbam 0 No Notes: Erwin benjamin ol 4- (Same l 05:00: as:Robaxin [place] 00 ) methocarbam 2021-0 No Notes: Erwin benjamin ol 4-09 (Same l 05:00: as:Robaxin [place] 00 ) methocarbam No Notes: Erwin benjamin ol 4-09 (Same l 05:00: as:Robaxin [place] 00 ) methocarbam No Notes: Erwin benjamin ol 4-09 (Same l 05:00: as:Robaxin [place] 00 ) docusate No Notes: Memoria 4-09 (Same as: l 02:00: Colace) [place] 00 (Do Not Crush) senna No Notes: Memoria 4-09 (Same as: l 02:00: Senokot) [place] 00 Saline No Notes: Memoria Flush 0.9% 4-09 (Same as: l 02:00: BD [place] 00 Posiflush) topiramate No Notes: Memor ia 4-09 (Same As: l 02:00: Topamax) [place] 00 "Do Not Crush" Hazardous Drug Group 3:Reproduc tive risk Hazardous Drug -- Refer to safe handling procedure PPE Matrix remove No Notes: Memoria patch 4-09 Remove l 02:00: patch 12 [place] 00 hours after applicatio n each day. docusate No Notes: Memoria 4-09 (Same as: l 02:00: Colace) [place] 00 (Do Not Crush) senna No Notes: Memoria 4-09 (Same as: l 02:00: Senokot) [place] 00 Saline No Notes: Memoria Flush 0.9% 4-09 (Same as: l 02:00: BD [place] 00 Posiflush) topiramate No Notes: Memor ia 4-09 (Same As: l 02:00: Topamax) [place] 00 "Do Not Crush" Hazardous Drug Group 3:Reproduc tive risk Hazardous Drug -- Refer to safe handling procedure PPE Matrix remove No Notes: Memoria patch 4-09 Remove l 02:00: patch 12 [place] 00 hours after applicatio n each day. docusate No Notes: Memoria 4-09 (Same as: l 02:00: Colace) [place] 00 (Do Not Crush) senna No Notes: [...] 4-09 Remove l 02:00: patch 12 [place] 00 hours after applicatio n each day. docusate No Notes: Memoria 4-09 (Same as: l 02:00: Colace) [place] 00 (Do Not Crush) senna No Notes: Memoria 4-09 (Same as: l 02:00: Senokot) [place] 00 Saline No Notes: Memoria Flush 0.9% [...] Memoria 4-09 (Same as: l 02:00: Colace) [place] 00 (Do Not Crush) senna No Notes: Memoria 4-09 (Same as: l 02:00: Senokot) [place] 00 Saline No Notes: Memoria Flush 0.9% 4-09 (Same as: l 02:00: BD [place] 00 Posiflush) topiramate No Notes: Memor ia 4-09 (Same As: l 02:00: Topamax) [place] 00 "Do Not Crush" Hazardous Drug Group 3:Reproduc tive risk Hazardous Drug -- Refer to safe handling procedure PPE Matrix remove No Notes: Memoria patch 4-09 Remove l 02:00: patch 12 [place] 00 hours after applicatio n each day. docusate No Notes: Memoria 4-09 (Same as: l 02:00: Colace) [place] 00 (Do Not Crush) senna No Notes: [...] 4-09 (Same as: l 02:00: Senokot) [place] 00 Saline No Notes: Memoria Flush 0.9% 4-09 (Same as: l 02:00: BD [place] 00 Posiflush) topiramate No Notes: Memor ia 4-09 (Same As: l 02:00: Topamax) [place] 00 "Do Not Crush" Hazardous Drug Group 3:Reproduc tive risk Hazardous Drug -- Refer to safe handling procedure PPE Matrix remove No Notes: Memoria patch 4-09 Remove l 02:00: patch 12 [place] 00 hours after applicatio n each day. acetaminoph No Notes: Max Memoria en 4-09 acetaminop l 01:00: hen 4000 [place] 00 mg/day (4 gm/day). (Same as: Tylenol Extra Strength) acetaminoph No Notes: Max Memoria en 4-09 acetaminop l 01:00: hen 4000 [place] 00 mg/day (4 gm/day). (Same as: Tylenol Extra Strength) acetaminoph No Notes: Max Memoria en 4-09 acetaminop l 01:00: hen 4000 [place] 00 mg/day (4 gm/day). (Same as: Tylenol Extra Strength) acetaminoph No Notes: Max Memoria en 4- acetaminop l 01:00: hen 4000 [place] 00 mg/day (4 gm/day). (Same as: Tylenol Extra Strength) acetaminoph No Notes: Max Memoria en 4- acetaminop l 01:00: hen 4000 [place] 00 mg/day (4 gm/day). (Same as: Tylenol Extra Strength) acetaminoph No Notes: Max Memoria en - acetaminop l 01:00: hen 4000 [place] 00 mg/day (4 gm/day). (Same as: Tylenol Extra Strength) acetaminoph No Notes: Max Memoria en - acetaminop l 01:00: hen 4000 [place] 00 mg/day (4 gm/day). (Same as: Tylenol Extra Strength) oxyCODONE No Notes: Memori a immediate - (Same as: l release 00:09: Roxicodone Herm philip 00 ) acetaminoph No Notes: Do M emoria en-hydrocod - not exceed l one 325 00:09: 4gm/day of Herm philip mg-10 mg 00 acetaminop oral tablet hen. (Same as: [place] 325/10) oxyCODONE 0 No Notes: Memori a immediate 4- (Same as: l release 00:09: Roxicodone Herm philip 00 ) acetaminoph No Notes: Do M emoria en-hydrocod 4- not exceed l one 325 00:09: 4gm/day of Herm philip mg-10 mg 00 acetaminop oral tablet hen. (Same as: [place] 325/10) oxyCODONE 0 No Notes: Memori a immediate 4- (Same as: l release 00:09: Roxicodone Herm philip 00 ) acetaminoph No Notes: Do M emoria en-hydrocod 4-09 not exceed l one 325 00:09: 4gm/day of Herm philip mg-10 mg 00 acetaminop oral tablet hen. (Same as: [place] 325/10) oxyCODONE No Notes: Memori a immediate 4-09 (Same as: l release 00:09: Roxicodone Herm philip 00 ) acetaminoph No Notes: Do M emoria en-hydrocod 4-09 not exceed l one 325 00:09: 4gm/day of Herm philip mg-10 mg 00 acetaminop oral tablet hen. (Same as: [place] 325/10) oxyCODONE No Notes: Memori a immediate 4-09 (Same as: l release 00:09: Roxicodone Herm philip 00 ) acetaminoph No Notes: Do M emoria en-hydrocod 4-09 not exceed l one 325 00:09: 4gm/day of Herm philip mg-10 mg 00 acetaminop oral tablet hen. (Same as: [place] 325/10) oxyCODONE No Notes: Memori a immediate 4-09 (Same as: l release 00:09: Roxicodone Herm philip 00 ) acetaminoph No Notes: Do M emoria en-hydrocod 4-09 not exceed l one 325 00:09: 4gm/day of Herm philip mg-10 mg 00 acetaminop oral tablet hen. (Same as: [place] 325/10) oxyCODONE 0 No Notes: Memori a immediate 4-09 (Same as: l release 00:09: Roxicodone Herm philip 00 ) acetaminoph No Notes: Do M emoria en-hydrocod 4-09 not exceed l one 325 00:09: 4gm/day of Herm philip mg-10 mg 00 acetaminop oral tablet hen. (Same as: [place] 325/10) LORazepam No Notes: Memori a 4-09 (Same as: l 00:06: Ativan) [place] 00 oxyCODONE No Notes: Memori a immediate [...] 4-09 (Same as: l 00:06: Ativan) [place] oxyCODONE No Notes: Memori a immediate 4-09 (Same as: l release 00:06: Roxicodone Herm philip 00 ) LORazepam No Notes: Memori a 4-09 (Same as: l 00:06: Ativan) [place] oxyCODONE No Notes: Memori a immediate 4-09 (Same as: l release 00:06: Roxicodone Herm philip 00 ) LORazepam No Notes: Memori a 4-09 (Same as: l 00:06: Ativan) [place] oxyCODONE No Notes: Memori a immediate 4-09 (Same as: l release 00:06: Roxicodone Herm philip 00 ) LORazepam No Notes: Memori a 4-09 (Same as: l 00:06: Ativan) [place] oxyCODONE No Notes: Memori a immediate 4-09 [...] not exceed l 23:43: 4 gm/day. [place] 00 (Same as: Tylenol) acetaminoph No Notes: Erwin benjamin en-hydrocod 4-08 (Same as: l one 325 23:43: [place] mg-5 mg 00 325/5) Do oral tablet not exceed 4gm/day of acetaminop hen. acetaminoph No Notes: Do M emoria en-hydrocod 4-08 not exceed l one 325 23:43: 4gm/day of Herm philip mg-10 mg 00 acetaminop oral tablet hen. (Same as: [place] 325/10) bisacodyl No Notes: Memori a 4-08 (Same As: l 23:43: Dulcolax, [place] Bisco-Lax) hydrALAZINE No Notes: Erwin benjamin 4-08 (Same as: l 23:43: Apresoline [place] 00 ) Push over 5 minutes labetalol No 10 mg, 2 Erwin benjamin 4-08 mL, Route: l 23:43: IVP, Drug form: INJ, Q15Min, Dosing Weight 127.727, kg, Start date: 10/20/21 18:43:00 CDT, Duration: 3 doses or times, Stop date: 10/20/21 19:13:00 CDT, 0 Saline No Notes: Memoria Flush 0.9% -08 (Same as: l 23:43: BD [place] 00 Posiflush) Sodium No 1,000 mL, Memori a Chloride -08 Rate: 75 l 0.9% IV 23:43: ml/hr, [place] 1,000 mL 00 Infuse over: 13.3 hr, Route: IV, Dosing Weight 127.727 kg, Total Volume: 1,000, Start date: 10/20/21 18:43:00 CDT, Duration: 30 day, Stop date: 11/19/21 18:42:00 CDT, BSA: 2.37 m2, 0 acetaminoph No Notes: Do M emoria en 4-08 not exceed l 23:43: 4 gm/day. [place] 00 (Same as: Tylenol) acetaminoph No Notes: Erwin benjamin en-hydrocod 4-08 (Same as: l one 325 23:43: [place] mg-5 mg 00 325/5) Do oral tablet not exceed 4gm/day of acetaminop hen. acetaminoph No Notes: Do M emoria en-hydrocod 4-08 not exceed l one 325 23:43: 4gm/day of Herm philip mg-10 mg 00 acetaminop oral tablet hen. (Same as: [place] 325/10) bisacodyl No Notes: Memori a 4-08 (Same As: l 23:43: Dulcolax, [place] Bisco-Lax) hydrALAZINE No Notes: Erwin benjamin 4-08 (Same as: l 23:43: Apresoline [place] 00 ) Push over 5 minutes labetalol No 10 mg, 2 Erwin benjamin 4-08 mL, Route: l 23:43: IVP, Drug form: INJ, Q15Min, Dosing Weight 127.727, kg, Start date: 10/20/21 18:43:00 CDT, Duration: 3 doses or times, Stop date: 10/20/21 19:13:00 CDT, 0 Saline No Notes: Memoria Flush 0.9% 08 (Same as: l 23:43: BD [place] 00 Posiflush) Sodium No 1,000 mL, Memori a Chloride -08 Rate: 75 l 0.9% IV 23:43: ml/hr, [place] 1,000 mL 00 Infuse over: 13.3 hr, [...] 4-08 (Same as: l one 325 23:43: [place] mg-5 mg 00 325/5) Do oral tablet not exceed 4gm/day of acetaminop hen. acetaminoph No Notes: Do M emoria en-hydrocod 4-08 not exceed l one 325 23:43: 4gm/day of Herm philip mg-10 mg 00 acetaminop oral tablet hen. (Same as: [place] 325/10) bisacodyl No Notes: Memori a 4-08 (Same As: l 23:43: Dulcolax, [place] Bisco-Lax) hydrALAZINE No Notes: Erwin benjamin 4-08 [...] 0.9% 08 (Same as: l 23:43: BD [place] 00 Posiflush) Sodium No 1,000 mL, Memori [...] not exceed l 23:43: 4 gm/day. [place] 00 (Same as: Tylenol) acetaminoph No Notes: Erwin benjamin en-hydrocod 4-08 (Same as: l one 325 23:43: [place] mg-5 mg 00 325/5) Do oral tablet not exceed 4gm/day of acetaminop hen. acetaminoph No Notes: Do M emoria en-hydrocod 4-08 not exceed l one 325 23:43: 4gm/day of Herm philip mg-10 mg 00 acetaminop oral tablet hen. (Same as: [place] 325/10) bisacodyl No Notes: Memori a 4-08 [...] 0.9% -08 (Same as: l 23:43: BD [place] 00 Posiflush) Sodium No 1,000 mL, Memori a Chloride 08 Rate: 75 l 0.9% IV 23:43: ml/hr, [place] 1,000 mL 00 Infuse over: 13.3 hr, Route: IV, Dosing Weight 127.727 kg, Total Volume: 1,000, Start date: 10/20/21 18:43:00 CDT, Duration: 30 day, Stop date: 11/19/21 18:42:00 CDT, BSA: 2.37 m2, 0 acetaminoph No Notes: Do M emoria en 4-08 not exceed l 23:43: 4 gm/day. [place] 00 (Same as: Tylenol) acetaminoph No Notes: Erwin benjamin en-hydrocod 4-08 (Same as: l one 325 23:43: [place] mg-5 mg 00 325/5) Do oral tablet not exceed 4gm/day of acetaminop hen. acetaminoph No Notes: Do M emoria en-hydrocod 4-08 not exceed l one 325 23:43: 4gm/day of Herm philip mg-10 mg 00 acetaminop oral tablet hen. (Same as: [place] 325/10) bisacodyl No Notes: Memori a 4-08 (Same As: l 23:43: Dulcolax, [place] Bisco-Lax) hydrALAZINE No Notes: Erwin benjamin 4-08 (Same as: l 23:43: Apresoline Jason 00 ) Push over 5 minutes labetalol No 10 mg, 2 Erwin benjamin 4-08 mL, Route: l 23:43: IVP, Drug form: INJ, Q15Min, Dosing Weight 127.727, kg, Start date: 10/20/21 18:43:00 CDT, Duration: 3 doses or times, Stop date: 10/20/21 19:13:00 CDT, 0 Saline No Notes: Memoria Flush 0.9% -08 (Same as: l 23:43: BD [place] 00 Posiflush) Sodium No 1,000 mL, Memori a Chloride -08 Rate: 75 l 0.9% IV 23:43: ml/hr, [place] 1,000 mL 00 Infuse over: 13.3 hr, Route: IV, Dosing Weight 127.727 kg, Total Volume: 1,000, Start date: 10/20/21 18:43:00 CDT, Duration: 30 day, Stop date: 11/19/21 18:42:00 CDT, BSA: 2.37 m2, 0 acetaminoph No Notes: Do M emoria en 4-08 not exceed l 23:43: 4 gm/day. [place] 00 (Same as: Tylenol) acetaminoph No Notes: Erwin benjamin en-hydrocod 4-08 (Same as: l one 325 23:43: [place] mg-5 mg 00 325/5) Do oral tablet not exceed 4gm/day of acetaminop hen. acetaminoph No Notes: Do M emoria en-hydrocod 4-08 not exceed l one 325 23:43: 4gm/day of Herm philip mg-10 mg 00 acetaminop oral tablet hen. (Same as: [place] 325/10) bisacodyl No Notes: Memori a 4-08 [...] 10-20 (Same as: l 23:43: BD Posiflush) Sodium [...] not exceed l 23:43: 4 gm/day. [place] 00 (Same as: Tylenol) acetaminoph No Notes: Erwin benjamin en-hydrocod 4-08 (Same as: l one 325 23:43: [place] mg-5 mg 00 325/5) Do oral tablet not exceed 4gm/day of acetaminop hen. acetaminoph No Notes: Do M emoria en-hydrocod 10-20 not exceed l one 325 23:43: 4gm/day of Herm philip mg-10 mg 00 acetaminop oral tablet hen. (Same as: [place] 325/10) bisacodyl No Notes: Memori a 08 [...] as: l 23:43: BD Posiflush) NaCl 0.9% No 1000mL at 999 Uni [...] On Branch Sat10/16/21 at 0000, STAT haloperidol 0 No 2.5mg 2.5 mg, U nivers lactate 10-16 Intravenou ity o f (HALDOL) 05:00: 04:47 s, ONCE, 1 [place] injection 00 :00 dose, On Medica l 2.5 mg Sat10/16/21 Branch at 0000, STAT topiramate 2022-0 Yes 25 mg = 1 Me moria 25 mg oral 3-29 cap, PO, l capsule 13:44: Q12H, # 60 Herm philip 00 cap, 0 Refill(s), Pharmacy: [email or web address] [place] [id number], 149.86, cm, 10/06/21 1:18:00 CDT, Height, 127.727, kg, 10/06/21 1:18:00 CDT, Weight topiramate 2022-0 Yes 25 mg = 1 Me moria 25 mg oral 3-29 cap, PO, l capsule 13:44: Q12H, # 60 Herm philip 00 cap, 0 Refill(s), Pharmacy: [email or web address] [place] [facility][id number], 149.86, cm, 10/06/21 1:18:00 CDT, Height, 127.727, kg, 10/06/21 1:18:00 CDT, Weight topiramate 2-0 Yes 25 mg = 1 Me moria 25 mg oral 3-29 cap, PO, l capsule 13:44: Q12H, # 60 Herm philip 00 cap, 0 Refill(s), Pharmacy: [email or web address] [place] [facility][id number], 149.86, cm, 10/06/21 1:18:00 CDT, Height, 127.727, kg, 10/06/21 1:18:00 CDT, Weight topiramate 2-0 Yes 25 mg = 1 Me moria 25 mg oral 3-29 cap, PO, l capsule 13:44: Q12H, # 60 Herm philip 00 cap, 0 Refill(s), Pharmacy: [email or web address] [place] [id number], 149.86, cm, 10/06/21 1:18:00 CDT, Height, 127.727, kg, 10/06/21 1:18:00 CDT, Weight topiramate 2022-0 Yes 25 mg = 1 Me moria 25 mg oral 3-29 cap, PO, l capsule 13:44: Q12H, # 60 Herm philip 00 cap, 0 Refill(s), Pharmacy: [email or web address] [place] #[id number], 149.86, cm, 10/06/21 1:18:00 CDT, Height, 127.727, kg, 10/06/21 1:18:00 CDT, Weight topiramate 2022-0 Yes 25 mg = 1 Me moria 25 mg oral 3-29 cap, PO, l capsule 13:44: Q12H, # 60 Herm philip 00 cap, 0 Refill(s), Pharmacy: [facility] #[id number], 149.86, cm, 10/06/21 1:18:00 CDT, Height, 127.727, kg, 10/06/21 1:18:00 CDT, Weight topiramate Yes 25 mg = 1 Me moria 25 mg oral 3-29 cap, PO, l capsule 13:44: Q12H, # 60 Herm philip 00 cap, 0 Refill(s), Pharmacy: [facility] #[id number], 149.86, cm, 10/06/21 1:18:00 CDT, Height, 127.727, kg, 10/06/21 1:18:00 CDT, Weight topiramate No Notes: Memor ia 3-28 Hazardous l 22:05: [facility] [place] 00 3:Reproduc tive risk Hazardous Drug -- Refer to safe handling procedure PPE Matrix Sprinkle formulatio n. (Same As: Topamax) topiramate No Notes: Memor ia 3-28 Hazardous l 22:05: [facility] [place] 3:Reproduc tive risk Hazardous Drug -- Refer to safe handling procedure PPE [employer] Sprinkle formulatio n. (Same As: Topamax) topiramate No Notes: Memor ia 3-28 Hazardous l 22:05: [facility] [place] 3:Reproduc tive risk Hazardous Drug -- Refer to safe handling procedure PPE [employer] Sprinkle formulatio n. (Same As: Topamax) topiramate No Notes: [facility] 3-28 Hazardous l 22:05: [facility] [place] 3:Reproduc tive risk Hazardous Drug -- Refer [...] 3-28 Hazardous l 22:05: [facility] [place] 00 3:Reproduc tive risk Hazardous Drug -- Refer to safe handling procedure PPE Matrix Sprinkle formulatio n. (Same As: Topamax) Edwin No Notes: Memoria packet 3-28 (Same as: l 21:30: Edwin [place] 00 Unflavored ) Administer ing EDWIN orally: Mix into 8-10 fl oz of room temperatur e juice, soda, or water. Also mixes well with warm beverages, like coffee or tea. Can be mixed with applesauce . Thoroughly stir for 30-60 seconds or until completely dissolved Edwin No Notes: Memoria packet 3-28 (Same as: l 21:30: Edwin [place] 00 Unflavored ) Administer ing EDWIN orally: Mix into 8-10 fl oz of room temperatur e juice, soda, or water. Also mixes well with warm beverages, like coffee or tea. Can be mixed with applesauce . Thoroughly stir for 30-60 seconds or until completely dissolved Edwin No Notes: Memoria packet 3-28 (Same as: l 21:30: Edwin [place] 00 Unflavored ) Administer ing EDWIN orally: Mix into 8-10 fl oz of room temperatur e juice, soda, or water. Also mixes well with warm beverages, like coffee or tea. Can be mixed with applesauce . Thoroughly stir for 30-60 seconds or until completely dissolved Edwin No Notes: Memoria packet 3-28 (Same as: l 21:30: Edwin [place] 00 Unflavored ) Administer ing EDWIN orally: [...] 30-60 seconds or until completely dissolved Edwin 0 No Notes: Memoria packet 3- (Same as: l 21:30: Edwin [place] 00 Unflavored ) Administer ing EDWIN orally: Mix into 8-10 fl oz of room temperatur e juice, soda, or water. Also mixes well with warm beverages, like coffee or tea. Can be mixed with applesauce . Thoroughly stir for 30-60 seconds or until completely dissolved Lovenox 2021-0 No Notes: Memoria 3-27 (Same as: l 16:00: Lovenox) [place] Lovenox 0 No Notes: Memoria 3-27 (Same as: l 16:00: Lovenox) [place] Lovenox 2021-0 No Notes: Memoria 3-27 (Same as: l 16:00: Lovenox) [place] Lovenox 2021-0 No Notes: Memoria 3-27 (Same as: l 16:00: Lovenox) [place] 00 Lovenox 2021-0 No Notes: Memoria 3-27 (Same as: l 16:00: Lovenox) [place] Lovenox 2021-0 No Notes: Memoria 3-27 (Same as: l 16:00: Lovenox) [place] 00 Lovenox 2021-0 No Notes: Memoria 3-27 (Same as: l 16:00: Lovenox) [place] 00 Magnesium 2021-0 No Notes: Memori a Sulfate 3-27 WASTE: F/P l 15:54: - Sink; E - [facility] Trash Bin methylPREDN No Notes: Erwin benjamin ISolone 3-27 (Same l SODium 15:54: as:Solu-ME Kristen nn SUCCinate 00 DROL, A-Methapre d) MEDICATION WASTE Product Size: 1000 mg Product Wasted: ___ mg Magnesium No Notes: Memori a Sulfate 3-27 WASTE: F/P l 15:54: - Sink; - [facility] Trash Bin methylPREDN No Notes: Erwin benjamin ISolone 3-27 (Same l SODium 15:54: as:Solu-ME Kristen nn SUCCinate 00 DROL, A-Methapre d) MEDICATION WASTE Product Size: 1000 mg Product Wasted: ___ mg Magnesium No Notes: Memori a Sulfate 3-27 WASTE: F/P l 15:54: - Sink; - [facility] Trash Bin methylPREDN No Notes: Erwin benjamin ISolone 3-27 (Same l SODium 15:54: as:Solu-ME Kristen nn SUCCinate 00 DROL, A-Methapre d) MEDICATION WASTE Product Size: 1000 mg Product Wasted: ___ mg Magnesium No Notes: Memori a Sulfate 3-27 WASTE: F/P l 15:54: - Sink; [facility] Trash Bin methylPREDN No Notes: Erwin benjamin ISolone 3-27 (Same l SODium 15:54: as:Solu-ME Kristen nn SUCCinate 00 DROL, A-Methapre d) MEDICATION WASTE Product Size: 1000 mg Product Wasted: ___ mg Magnesium No Notes: Memori a Sulfate 3-27 WASTE: F/P l 15:54: - Sink; - [facility] Trash Bin methylPREDN No Notes: Erwin benjamin ISolone 3-27 (Same l SODium 15:54: as:Solu-ME Kristen nn SUCCinate 00 DROL, A-Methapre d) MEDICATION WASTE Product Size: 1000 mg Product Wasted: ___ mg Magnesium No Notes: Memori a Sulfate 3-27 WASTE: F/P l 15:54: - Sink; E [place] - [facility] Trash Bin methylPREDN No Notes: Erwin benjamin ISolone 3-27 (Same l SODium 15:54: as:Solu-ME Kristen nn SUCCinate 00 DROL, A-Methapre d) MEDICATION WASTE Product Size: 1000 mg Product Wasted: ___ mg Magnesium No Notes: Memori a Sulfate 3-27 WASTE: F/P l 15:54: - Sink; E [place] - [facility] Trash Bin methylPREDN No Notes: Erwin benjamin ISolone 3-27 (Same l SODium 15:54: as:Solu-ME Kristen nn SUCCinate 00 DROL, A-Methapre d) MEDICATION WASTE Product Size: 1000 mg Product Wasted: ___ mg Dilaudid No Notes: Memoria 3-27 (Same as: l 13:28: Dilaudid) [place] Dilaudid No Notes: Memoria 3-27 (Same as: l 13:28: Dilaudid) [place] Dilaudid No Notes: Memoria 3-27 (Same as: l 13:28: Dilaudid) [place] Dilaudid No Notes: Memoria 3-27 (Same as: l 13:28: Dilaudid) [place] Dilaudid No Notes: Memoria 3-27 (Same as: l 13:28: Dilaudid) [place] Dilaudid No Notes: Memoria 3-27 (Same as: l 13:28: Dilaudid) [place] Dilaudid No Notes: Memoria 3-27 (Same as: l 13:28: Dilaudid) [place] remove No Notes: Memoria patch 3-27 Remove l 02:00: patch 12 [place] 00 hours after applicatio n each day. remove No Notes: Memoria patch 3-27 Remove l 02:00: patch 12 [place] 00 hours after applicatio n each day. remove No Notes: Memoria patch 3-27 Remove l 02:00: patch 12 [place] 00 hours after applicatio n each day. remove No Notes: Memoria patch 3-27 Remove l 02:00: patch 12 [place] 00 hours after applicatio n each day. remove No Notes: Memoria patch 3-27 Remove l 02:00: patch 12 [place] 00 hours after applicatio n each day. remove No Notes: Memoria patch 3-27 Remove l 02:00: patch 12 [place] 00 hours after applicatio n each day. remove No Notes: Memoria patch 3-27 Remove l 02:00: patch 12 [place] 00 hours after applicatio n each day. Lyrica No Notes: Memoria 3-26 (Same as: l 21:58: Lyrica) [place] 00 Naproxen No Notes: Memoria 3-26 (Same as: l 21:58: Naprosyn) [place] 00 Take with food. Lyrica No Notes: Memoria 3-26 (Same as: l 21:58: Lyrica) [place] 00 Naproxen No Notes: Memoria 3-26 (Same as: l 21:58: Naprosyn) [place] 00 Take with food. Lyrica No Notes: Memoria 3-26 (Same as: l 21:58: Lyrica) [place] 00 Naproxen No Notes: Memoria 3-26 (Same as: l 21:58: Naprosyn) [place] 00 Take with food. Lyrica No Notes: Memoria 3-26 (Same as: l 21:58: Lyrica) [place] 00 Naproxen No Notes: Memoria 3-26 (Same as: l 21:58: Naprosyn) [place] 00 Take with food. Lyrica No Notes: Memoria 3-26 (Same as: l 21:58: Lyrica) [place] 00 Naproxen No Notes: Memoria 3-26 (Same as: l 21:58: Naprosyn) [place] 00 Take with food. Lyrica No Notes: Memoria 3-26 (Same as: l 21:58: Lyrica) Naproxen No Notes: Memoria 3-26 (Same as: l 21:58: Naprosyn) [place] 00 Take with food. Lyrica No Notes: Memoria 3-26 (Same as: l 21:58: Lyrica) Naproxen No Notes: Memoria 3-26 (Same as: l 21:58: Naprosyn) [place] 00 Take with food. Ascorbic No Notes: Memoria Acid 3-26 (Same as: l 14:00: Vitamin C) Zinc No Notes: Memoria Sulfate 3-26 (Zinc l 14:00: sulfate [place] capsule) - [...] Sulfate 3-26 (Zinc l 14:00: sulfate [place] capsule) - [...] Sulfate 3-26 (Zinc l 14:00: sulfate [place] 00 capsule) - 220 mg Zinc sulfate [...] Sulfate 3-26 (Zinc l 14:00: sulfate [place] 00 capsule) - 220 mg Zinc sulfate [...] n 3-26 (Same l 14:00: as:Thera) [place] WASTE: F/P - Black; E - Municipal [...] 3-26 (Same as: l 14:00: Vitamin C) [place] Zinc No Notes: Memoria Sulfate 3-26 (Zinc l 14:00: sulfate [place] 00 capsule) - 220 mg Zinc sulfate = 50 mg elemental zinc Same as Zinc Sulfate multivitami No Notes: Erwin benjamin n 3-26 (Same l 14:00: as:Thera) [place] 00 WASTE: F/P - Black; E - [...] Memoria 3-26 NSAID. l 03:15: Please [place] 00 check indication . Not for seizure. (Same As: CeleBREX) Robaxin 0 No Notes: Memoria 3-26 (Same l 03:15: as:Robaxin [place] 00 ) gabapentin 0 No Notes: Memor ia 3-26 (Same as: l 03:15: Neurontin) [place] 00 Tramadol 0 No Notes: Not Mem oria 3-26 to exceed l 03:15: 400mg/day. [place] 00 (Same As: Ultram) Celebrex 0 No Notes: Memoria 3-26 NSAID. l 03:15: Please [place] 00 check indication . Not for seizure. (Same As: CeleBREX) Robaxin 0 No Notes: Memoria 3-26 (Same l 03:15: [...] Not for seizure. (Same As: CeleBREX) Robaxin 0 No Notes: Memoria 3-26 (Same l 03:15: [...] Not for seizure. (Same As: CeleBREX) Robaxin 0 No Notes: Memoria 3-26 (Same l 03:15: as:Robaxin [place] 00 ) gabapentin 0 No Notes: Memor ia 3-26 (Same as: l 03:15: Neurontin) [place] 00 Tramadol 0 No Notes: Not Mem oria 3-26 to exceed l 03:15: 400mg/day. [place] 00 (Same As: Ultram) Celebrex 0 No Notes: Memoria 3-26 NSAID. l 03:15: Please [place] 00 check indication . Not for seizure. (Same As: CeleBREX) Robaxin 0 No Notes: Memoria 3-26 (Same l 03:15: as:Robaxin [place] 00 ) gabapentin 0 No Notes: Memor ia 3-26 (Same as: l 03:15: Neurontin) [place] 00 Tramadol 0 No Notes: Not Mem oria 3-26 to exceed l 03:15: 400mg/day. [place] 00 (Same As: Ultram) Celebrex 0 No Notes: Memoria 3-26 NSAID. l 03:15: Please [place] 00 check indication . Not for seizure. (Same As: CeleBREX) Robaxin 0 No Notes: Memoria 3-26 (Same l 03:15: as:Robaxin [place] 00 ) gabapentin 0 No Notes: Memor ia 3-26 (Same as: l 03:15: Neurontin) [place] 00 Tramadol 0 No Notes: Not Mem oria 3-26 to exceed l 03:15: 400mg/day. [place] 00 (Same As: Ultram) Celebrex 0 No Notes: Memoria 3-26 NSAID. l 03:15: Please [place] 00 check indication . Not for seizure. (Same As: CeleBREX) Robaxin 0 No Notes: Memoria 3-26 (Same l 03:15: as:Robaxin [place] 00 ) gabapentin 0 No Notes: Memor ia 3-26 (Same as: l 03:15: Neurontin) [place] 00 Tramadol 0 No Notes: Not Mem oria 3-26 to exceed l 03:15: 400mg/day. [place] 00 (Same As: Ultram) Dexamethaso 0 No [...] mg Dexamethaso 2021-0 No Notes: Memoria ne - MEDICATION l 03:00: WASTE [place] Product Size: 10 mg Product Wasted: ___ mg Dexamethaso 2021-0 No Notes: Memoria ne - MEDICATION l 03:00: WASTE [place] Product Size: 10 mg Product Wasted: ___ mg Dexamethaso 2021-0 No Notes: Memoria ne - MEDICATION l 03:00: WASTE [place] Product Size: 10 mg Product Wasted: ___ mg Dilaudid 2021-0 No Notes: Memoria 10-07 Same as l 02:58: Dilaudid [place] Dilaudid No Notes: Memoria 10-07 Same as l 02:58: Dilaudid [place] Dilaudid 2021-0 No Notes: Memoria 10-07 Same as l 02:58: Dilaudid [place] Dilaudid 2021-0 No Notes: Memoria 10-07 Same as l 02:58: Dilaudid [place] 00 Dilaudid 2021-0 No Notes: Memoria 10-07 Same as l 02:58: Dilaudid [place] 00 Dilaudid 2021-0 No Notes: Memoria 10-07 Same as l 02:58: Dilaudid [place] 00 Dilaudid 2021-0 No Notes: Memoria 10-07 Same as l 02:58: Dilaudid [place] 00 Acetaminoph No Notes: Max Memoria en 3-25 acetaminop l 22:38: hen = [place] 00 4000mg/day (4 gm/day). (Same as: Tylenol) Acetaminoph No Notes: Max Memoria en 3-25 acetaminop l 22:38: hen = [place] 00 4000mg/day (4 gm/day). (Same as: Tylenol) Acetaminoph No Notes: Max Memoria en 3-25 acetaminop l 22:38: hen = [place] 00 4000mg/day (4 gm/day). (Same as: Tylenol) Acetaminoph No Notes: Max Memoria en 3-25 acetaminop l 22:38: hen = [place] 00 4000mg/day (4 gm/day). (Same as: Tylenol) Acetaminoph No Notes: Max Memoria en 3-25 acetaminop l 22:38: hen = [place] 00 4000mg/day (4 gm/day). (Same as: Tylenol) [...] WASTE: F/P l 22:37: - Sink; E [place] 00 - [facility] Trash Bin Isolyte S No Notes: Memori a PH-7.4 3-25 (Same as: l (Bolus) IV 22:37: Isolyte S [place] 00 PH7.4, Normosol-R PH 7.4, Plasma-Lyt e A ) Magnesium No Notes: Memori a Sulfate 3-25 WASTE: F/P l 22:37: - Sink; E [place] - [facility] Trash Bin Isolyte S No [...] 3-25 WASTE: F/P l 22:37: - Sink; [place] - [facility] Trash Bin Isolyte S No Notes: Memori a PH-7.4 3-25 (Same as: l (Bolus) IV 22:37: Isolyte S [place] 00 PH7.4, Normosol-R PH 7.4, Plasma-Lyt e A ) Magnesium No Notes: Memori a Sulfate 3-25 WASTE: F/P l 22:37: - Sink; [place] 00 - [facility] Trash Bin Isolyte S No Notes: Memori a PH-7.4 3-25 (Same as: l (Bolus) IV 22:37: Isolyte S [place] 00 PH7.4, Normosol-R PH 7.4, Plasma-Lyt e A ) Magnesium No Notes: Memori a Sulfate 3-25 WASTE: F/P l 22:37: - Sink; [place] - [facility] Trash Bin Isolyte S No Notes: Memori a PH-7.4 3-25 (Same as: l (Bolus) IV 22:37: Isolyte S [place] 00 PH7.4, Normosol-R PH 7.4, Plasma-Lyt e A ) Magnesium No Notes: Memori a Sulfate 3-25 WASTE: F/P l 22:37: - Sink; E [place] 00 - [facility] Iohexol 2021-0 No 100 mL, Memoria 10-06 Route: l 20:04: IVP, Drug [place] 00 Form: SOLN, Dosing Weight 127.727, kg, ONCALL, STAT, Start date: 10/06/21 15:04:00 CDT, Duration: 1 doses or times, Dose = 2.2ml/kg, Max dose = 100ml -- "To be infused by Radiology Staff ONLY" Iohexol 2021-0 No 100 mL, Memoria 25 Route: l 20:04: IVP, Drug [place] 00 Form: SOLN, Dosing Weight 127.727, kg, ONCALL, STAT, Start date: 10/06/21 15:04:00 CDT, Duration: 1 doses or times, Dose = 2.2ml/kg, Max dose = 100ml -- "To be infused by Radiology Staff ONLY" Iohexol 2021-0 No 100 mL, Memoria 10-06 Route: l 20:04: IVP, Drug [place] 00 Form: SOLN, Dosing Weight 127.727, kg, ONCALL, STAT, Start date: 10/06/21 15:04:00 CDT, Duration: 1 doses or times, Dose = 2.2ml/kg, Max dose = 100ml -- "To be infused by Radiology Staff ONLY" Iohexol 2021-0 No 100 mL, Memoria 10-06 Route: l 20:04: IVP, Drug [place] 00 Form: SOLN, Dosing Weight 127.727, kg, ONCALL, STAT, Start date: 10/06/21 15:04:00 CDT, Duration: 1 doses or times, Dose = 2.2ml/kg, Max dose = 100ml -- "To be infused by Radiology Staff ONLY" Iohexol 2021-0 No 100 mL, Memoria 325 Route: l 20:04: IVP, Drug [place] 00 [...] 3-25 Route: l 20:04: IVP, Drug [place] Form: SOLN, Dosing Weight 127.727, kg, ONCALL, STAT, Start date: 10/06/21 15:04:00 CDT, Duration: 1 doses or times, Dose = 2.2ml/kg, Max dose = 100ml -- "To be infused by Radiology Staff ONLY" Docusate No Notes: Memoria 3-25 (Same as: l 14:00: Colace) [place] (Do Not Crush) sennosides No Notes: Erwin benjamin CARE HOME 3-25 (Same as: l 14:00: Senokot) [place] Saline No Notes: Memoria Flush 0.9% 3-25 preservati l 14:00: ve free. [place] 00 Docusate No Notes: Memoria 3-25 (Same as: l 14:00: Colace) [place] (Do Not Crush) sennosides No Notes: Erwin benjamin CARE HOME 3-25 (Same as: l 14:00: Senokot) [place] 00 Saline No Notes: Memoria Flush 0.9% 3-25 preservati l 14:00: ve free. [place] Docusate No Notes: Memoria 3-25 (Same as: l 14:00: Colace) [place] 00 (Do Not Crush) sennosides, No Notes: Erwin benjamin CARE HOME 3-25 (Same as: l 14:00: Senokot) [place] 00 Saline No Notes: Memoria Flush 0.9% 3-25 preservati l 14:00: ve free. [place] Docusate No Notes: Memoria 3-25 (Same as: [...] Memoria 3-25 (Same as: l 14:00: Colace) [place] (Do Not Crush) sennosides, No Notes: Erwin benjamin CARE HOME 3-25 (Same as: l 14:00: Senokot) [place] 00 Saline No Notes: Memoria Flush 0.9% 3-25 preservati l 14:00: ve free. [place] 00 Docusate No Notes: Memoria 3-25 (Same as: l 14:00: Colace) [place] (Do Not Crush) sennosides, No Notes: Erwin benjamin CARE HOME 3-25 (Same as: l 14:00: Senokot) [place] Saline No Notes: Memoria Flush 0.9% 3-25 [...] a 3-25 (Same as: l 06:05: Ativan) [place] 00 Methocarbam No Notes: Erwin benjamin ol 3-25 (Same l 06:05: as:Robaxin [place] 00 ) Lorazepam No Notes: Memori a 3-25 (Same as: l 06:05: Ativan) [place] 00 Methocarbam No Notes: Erwin benjamin ol 3-25 (Same l 06:05: as:Robaxin [place] 00 ) Lorazepam No Notes: Memori a 3-25 (Same as: l 06:05: Ativan) [place] 00 Methocarbam No Notes: Erwin benjamin ol 3-25 (Same l 06:05: as:Robaxin [place] 00 ) Lorazepam No Notes: Memori a 3-25 (Same as: l 06:05: Ativan) [place] 00 Methocarbam No Notes: Erwin benjamin ol 3-25 (Same l 06:05: as:Robaxin [place] 00 ) Lorazepam No Notes: Memori a 3-25 (Same as: l 06:05: Ativan) [place] 00 Methocarbam No Notes: Erwin benjamin ol 3-25 (Same l 06:05: as:Robaxin ) Lorazepam No Notes: Memori a 3-25 (Same as: l 06:05: Ativan) [place] 00 Methocarbam No Notes: Erwin benjamin ol 3-25 (Same l 06:05: as:Robaxin [place] 00 ) Lorazepam No Notes: Memori a 3-25 (Same as: l 06:05: Ativan) [place] 00 Methocarbam No Notes: Erwin benjamin ol 3-25 (Same l 06:05: as:Robaxin [place] 00 ) Sodium No 1,000 mL, Memori [...] exceed l Hydrocodone 06:03: 4gm/day of [place] Bitartrate 00 acetaminop 10 MG Oral hen. (Same Tablet as: [place] [[place] 325/10) 10/325] Dilaudid No Notes: Memoria 3-25 Same as l 06:03: Dilaudid Benadryl No Notes: Memoria 3-25 (Same as: l 06:03: Benadryl) [place] 00 phenol No Notes: Memoria 3-25 Chlorasept l 06:03: ic [place] (Same as: Chlorasept ic, Sore Throat [place]) WASTE: F/P - Black; E - Municipal [...] not exceed l 06:03: 4 gm/day. [place] 00 (Same as: Tylenol) Reglan No Notes: Memoria 3-25 (Same as: l 06:03: Reglan) [place] 00 Phenergan No Notes: Do Mem oria 3-25 not give l 06:03: IV push. [place] 00 (Same as: Phenergan) Saline No Notes: Memoria Flush 0.9% 3-25 preservati l 06:03: ve free. [place] 00 Sodium No 1,000 mL, Memori a [...] exceed l Hydrocodone 06:03: 4gm/day of [place] Bitartrate 00 acetaminop 10 MG Oral hen. (Same Tablet as: [place] [[place] 325/10) 10/325] Dilaudid No Notes: Memoria 3-25 Same as l 06:03: Dilaudid Benadryl No Notes: Memoria 3-25 (Same as: l 06:03: Benadryl) [place] phenol No Notes: Memoria 3-25 Chlorasept l 06:03: ic [place] (Same as: Chlorasept ic, Sore Throat [place]) WASTE: F/P - Black; E - Municipal [...] Memori a 3-25 years, l 06:03: Pediatric [place] Dosing Acetaminoph No Notes: Do M emoria en 325 MG / 3-25 not exceed l Hydrocodone 06:03: 4gm/day of [place] Bitartrate 00 acetaminop 10 MG Oral hen. (Same Tablet as: [place] [[place] 325/10) 10/325] Dilaudid No Notes: Memoria 3-25 Same as l 06:03: Dilaudid Benadryl No Notes: Memoria 3-25 (Same as: l 06:03: Benadryl) [place] phenol No Notes: Memoria 3-25 Chlorasept l 06:03: ic [place] (Same as: Chlorasept ic, Sore Throat [place]) WASTE: F/P - Black; E - Municipal Trash Bin Bisacodyl No Notes: Memori a 3-25 (Same As: l 06:03: Dulcolax, [place] 00 Bisco-Lax) Robaxin No Notes: Memoria 3-25 [...] 0.9% 3-25 preservati l 06:03: ve free. [place] 00 Sodium No 1,000 mL, Memori a [...] exceed l Hydrocodone 06:03: 4gm/day of [place] Bitartrate 00 acetaminop 10 MG Oral hen. (Same Tablet as: [place] [[place] 325/10) 10/325] Dilaudid No Notes: Memoria 3-25 Same as l 06:03: Dilaudid Benadryl No Notes: Memoria 3-25 (Same as: l 06:03: Benadryl) [place] 00 phenol No Notes: Memoria 3-25 Chlorasept l 06:03: ic [place] (Same as: Chlorasept ic, Sore Throat [place]) WASTE: F/P - Black; E - Municipal [...] 50 l 0.9% IV 06:03: ml/hr, [place] 1,000 mL 00 Infuse over: 20 hr, [...] exceed l Hydrocodone 06:03: 4gm/day of [place] Bitartrate 00 acetaminop 10 MG Oral hen. (Same Tablet as: [place] [[place] 325/10) 10/325] Dilaudid No Notes: Memoria 3-25 Same as l 06:03: Dilaudid [place] 00 Benadryl No Notes: Memoria 3-25 (Same as: l 06:03: Benadryl) [place] 00 phenol No Notes: Memoria 3-25 Chlorasept l 06:03: ic [place] (Same as: Chlorasept ic, Sore Throat [place]) WASTE: F/P - Black; E - Municipal Trash Bin Bisacodyl No Notes: Memori a 3-25 (Same As: l 06:03: Dulcolax, [place] Bisco-Lax) Robaxin No Notes: Memoria 3-25 (Same l 06:03: as:Robaxin ) Melatonin 3 No Notes: Erwin benjamin MG Extended 3-25 (Same as: l Release 06:03: Melatonin) Herm philip Tablet 00 Tylenol No Notes: Do Memor ia 3-25 not exceed l 06:03: 4 gm/day. [place] 00 (Same as: Tylenol) Reglan No Notes: Memoria 3-25 (Same as: l 06:03: Reglan) [place] 00 Phenergan No Notes: Do Mem oria 3-25 not give l 06:03: IV push. [place] (Same as: Phenergan) Saline No Notes: Memoria [...] 10 MG Oral hen. (Same Tablet as: [place] [[place] 325/10) 10/325] Dilaudid No Notes: Memoria 3-25 Same as l 06:03: Dilaudid [place] 00 Benadryl No Notes: Memoria 3-25 (Same as: l 06:03: Benadryl) [place] 00 phenol No Notes: Memoria 3-25 Chlorasept l 06:03: ic [place] (Same as: Chlorasept ic, Sore Throat [place]) WASTE: F/P - Black; E - Municipal [...] not exceed l 06:03: 4 gm/day. [place] 00 (Same as: Tylenol) Reglan No Notes: [...] 50 l 0.9% IV 06:03: ml/hr, [place] 1,000 mL 00 Infuse over: 20 hr, [...] exceed l Hydrocodone 06:03: 4gm/day of [place] Bitartrate 00 acetaminop 10 MG Oral hen. (Same Tablet as: [place] [[place] 325/10) 10/325] Dilaudid No Notes: Memoria 3-25 Same as l 06:03: Dilaudid Benadryl No Notes: Memoria 3-25 (Same as: l 06:03: Benadryl) [place] 00 phenol No Notes: Memoria 3-25 Chlorasept l 06:03: ic [place] (Same as: Chlorasept ic, Sore Throat [place]) WASTE: F/P - Black; E - Municipal [...] not exceed l 06:03: 4 gm/day. [place] (Same as: Tylenol) Reglan No Notes: Memoria 3-25 (Same as: l 06:03: Reglan) Phenergan No Notes: Do Mem oria -25 not give l 06:03: IV push. (Same as: Phenergan) Saline No Notes: Memoria Flush 0.9% 10-06 preservati l 06:03: ve free. butalbital- 2021- No 2{tbl} 2 tablet, [facility] acetaminoph 09-29 Oral, ity of en-caff 03:45: 03:10 ONCE, 1 [place] (ESGIC) 00 :00 dose, On Medical 50-325-40 Libra Branch mg tablet 2 09/28/21 at tablet 2245, SAHARA NaCl 0.9% 2021- No 500mL at 999 Univ ers (NS) bolus 09-2918 mL/hr, 500 it y of infusion 02:30: [...] by (Faculty): ADC PROVIDER levoFLOXaci 2021- No [id number] 750mg Take 1 Univers n 750 mg 08-09 tablet by ity o f tablet 00:00: 05:59 mouth [place] 00 :00 daily for Medical 4 days. Branch levoFLOXaci 2021- No [id number] 750mg Take 1 Univers n 750 mg 08-09 tablet by ity o f tablet 00:00: 05:59 mouth [place] 00 :00 daily for Medical 4 days. Branch OXYCODONE Yes Take by Unive rs HCL/ACETAMI - mouth. ity of NOPHEN 19:49: [place] (PERCOCET 27 Medical ORAL) [place] OXYCODONE Yes Take by Unive rs HCL/ACETAMI -25 mouth. ity of NOPHEN 19:49: [place] (PERCOCET 27 Medical ORAL) [place] OXYCODONE Yes Take by Unive rs HCL/ACETAMI -25 mouth. ity of NOPHEN 19:49: [place] (PERCOCET 27 Medical ORAL) Branch OXYCODONE Yes Take by Unive rs HCL/ACETAMI -25 mouth. ity of NOPHEN 19:49: [place] (PERCOCET 27 Medical ORAL) Branch vancomycin 2021- No 125mg 125 mg, Un ela (VANCOCIN) 1-25 01-31 Oral, QID, it y of capsule 125 [...] of therapy: 72 hours lactobacill 2021- No [id number] .5mg Take 1 Univers us -25 02-25 tablet by ity of acidophilus 00:00: 05:59 mouth 2 [place] 00 :00 (two) Medical times Branch daily for 30 days. lactobacill 2021- No [id number] .5mg Take 1 Univers us -25 02-25 tablet by ity of acidophilus 00:00: 05:59 mouth 2 [place] 00 :00 (two) Medical times Branch daily for 30 days. vancomycin 2021- No [id number] 125mg Take 1 Univers 125 mg 08-08 capsule by ity of capsule 00:00: 05:59 mouth 4 [place] 00 :00 (four) Medical times Branch daily for 5 days. vancomycin 2021- No [id number] 125mg Take 1 Univers 125 mg 08-08 [...] 08-06 Oral, ity of n 20:39: Q6HPRN, [place] (PERCOCET) 03 Starting Medic al 5-325 mg [...] 50 mL First dose Bra [facility] MINI-BAG on 08/05/21 at 0945, Until Discontinu [...] 08/04/21 at 2000, Until Discontinu ed, SAHARA
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
[...] Discontinu ed, Routine, Pain (scale 1-3) meropenem 202- No 1g 1 g, IV Univ ers (MERREM) 1 1-20 01-20 Piggyback, it y of g in NaCl 07:15: 08:49 ONCE, [place] 0.9% (NS) 00 :00 dose, On Medica l 100 mL [facility] MINI-BAG 08/03/21 at 0115, Administer over 60 Minutes, 100 mL
Rest ricted use approved by: ADC PROVIDER<b r>Reason for Anti-Infec tive: Documented Infection< br>Documen lester Infection Site: Urine
D uration of Therapy: Other (see Comments) cefdinir 2021- No 300mg 300 mg, Univ ers (OMNICEF) 08-01 Oral, ity of capsule 300 03:30: 02:55 [place]CE, 1 [place] mg 00 :00 dose, On [facility] Branch 07/31/21 at 2130, SAHARA
Re ason for Anti-Infec tive: Documented Infection< br>Documen lester Infection Site: Urine
D uration of Therapy: 7 days FENTanyl PF 2021- No 50ug 50 mcg, Un ela (SUBLIMAZE 08-01 Slow IV ity o f (PF)) 01:15: 03:26 Push, [place] injection 00 :00 ONCE, 1 Medical 50 mcg dose, On Branch [facility] 07/31/21 at 1915, STAT proMETHazin No 25mg 25 mg, IV Univers e 08-01 Piggyback, ity of (PHENERGAN) 01:15: 03:26 [place]CE, 1 [place] 25 mg in 00 :00 dose, On Medical NaCl 0.9% [facility] (NS) 50 mL 07/31/21 at piggyback 191, 50 mL cefdinir 2021-2021- No [id number] 300mg Take 1 U nivers 300 mg 07-31 capsule by ity of capsule 00:00: 05:59 mouth [place] 00 :00 every 12 Medical (twelve) Branch hours for 10 days. cefdinir 2021-0 2021- No [id number] 300mg Take 1 U nivers 300 mg 07-31 capsule by ity of capsule 00:00: 00:00 mouth [place] 00 :00 every 12 Medical (twelve) Branch hours for 10 days. FENTanyl PF 2- No 50ug 50 mcg, Un ela (SUBLIMAZE 07-30 Slow IV ity o f (PF)) 02:00: 01:19 Push, [place] injection 00 :00 ONCE, 1 Medical 50 mcg dose, On Branch 07/29/21 at 1999, Routine methocarbam 2021-0 2021- No 1000mg 1,000 mg, Univers oL [...] On Branch 07/29/21 at 1645, Routine methocarbam 202-0 Yes [id number] 1000mg Take 2 Univers oL 500 mg 1-15 tablets by ity of tablet 00:00: mouth (four) Medical times Branch daily as needed for Pain (scale 1-3). methocarbam 2022-0 Yes [id number] 1000mg Take 2 Univers oL 500 mg 1-15 tablets by ity of tablet 00:00: mouth 4 00 (four) Medical times Branch daily as needed for Pain (scale 1-3). methocarbam 2022-0 Yes [id number] 1000mg Take 2 Univers oL 500 mg 1-15 tablets by ity of tablet 00:00: mouth 4 (four) Medical times Branch daily as needed for Pain (scale 1-3). methocarbam 2022-0 Yes [id number] 1000mg Take 2 Univers oL 500 mg 1-15 tablets by ity of tablet 00:00: mouth 4 (four) Medical times Branch daily as needed for Pain (scale 1-3). methocarbam 0 Yes [id number] 1000mg Take 2 Univers oL 500 mg 1-15 tablets by ity of tablet 00:00: mouth 4 (four) Medical times Branch daily as needed for Pain (scale 1-3). methocarbam 2021-0 Yes [id number] 1000mg Take 2 Univers oL 500 mg 1-15 tablets by ity of tablet 00:00: mouth 4 (four) Medical times Branch daily as needed for Pain (scale 1-3). methocarbam 0 2021- No [id number] 1000mg Take 2 Univers oL 500 mg [...] 06/07/21 at 1615, Routine fidaxomicin 2020-07 Yes [id number] 200mg Take 1 [facility] 200 mg 1-24 tablet by ity of tablet 00:00: mouth (two) Medical times Branch daily. proMETHazin 2020-07 Yes [id number] 25mg Take 1 Univers e 25 mg 1-24 tablet by ity of tablet 00:00: mouth 00 every 6 Medical (six) Branch hours as needed for Nausea and Vomiting (N/V). fidaxomicin 2020-07 Yes [id number] 200mg Take 1 [facility] 200 mg 1-24 tablet by ity of tablet 00:00: mouth 2 [place] 00 (two) Medical times Branch daily. proMETHazin 2020-07 Yes [id number] 25mg Take 1 Univers e 25 mg 1-24 tablet by ity of tablet 00:00: mouth [place] 00 every 6 Medical (six) Branch hours as needed for Nausea and Vomiting (N/V). cholestyram 2020-07 Yes Univer s ine 4 gram 1-24 ity of packet 00:00: [place] 00 Medical Branch fidaxomicin 2020-07 Yes [id number] 200mg Take 1 [facility] 200 mg 1-24 tablet by ity of tablet 00:00: mouth 2 [place] 00 (two) Medical times Branch daily. proMETHazin 2020-07 Yes [id number] 25mg Take 1 Univers e 25 mg 1-24 tablet by ity of tablet 00:00: mouth [place] 00 every 6 Medical (six) Branch hours as needed for Nausea and Vomiting (N/V). cholestyram 2020-07 Yes Univer s ine 4 gram 1-24 ity of packet 00:00: [place] 00 Medical Branch cholestyram 2020-07 Yes Univer s ine 4 gram 1-24 ity of packet 00:00: [place] Medical Branch cholestyram 2020-07 Yes Univer s ine 4 gram 1-24 ity of packet 00:00: [place] 00 Medical Branch cholestyram 2020-07 Yes Univer s ine 4 gram 1-24 ity of packet 00:00: [place] Medical Branch cholestyram 2020-07 Yes Univer s ine 4 gram 1-24 ity of packet 00:00: [place] 00 Medical Branch fidaxomicin 2020-07 Yes [id number] 200mg Take 1 [facility] 200 mg 1-24 tablet by ity of tablet 00:00: mouth 2 [place] 00 (two) Medical times Branch daily. proMETHazin 2020-07 Yes [id number] 25mg Take 1 Univers e 25 mg 1-24 tablet by ity of tablet 00:00: mouth [place] 00 every 6 Medical (six) Branch hours as needed for Nausea and Vomiting (N/V). cholestyram 2020-07- No Unive rs ine 4 gram 1-24 05-11 ity of packet 00:00: 00:00 [place] 00 :00 Medical Branch fidaxomicin 2020-07- No [id number] 200mg Take 1 [facility] 200 mg 1-24 01-25 tablet by ity of tablet 00:00: 00:00 mouth 2 [place] 00 :00 (two) Medical times Branch daily. proMETHazin 2020-07 No [id number] 25mg Take 1 Univers e 25 mg [...] of 1,000 mg in 02:30: 01:55 Piggyback, [place] NaCl 0.9% 00 :00 ONCE, 1 Medical (NS) 50 mL dose, [facility] MINI-BAG 11/20/20 at 2130, 50 mL
Reas on for Anti-Infec tive: Documented Infection< br>Documen lester Infection Site: Urine
D uration of Therapy: 7 days famotidine No 20mg 20 mg, Univ ers (PEPCID 5-10 05-10 Slow IV ity of (PF)) 01:00: 00:12 Push, [place] injection 00 :00 ONCE, 1 Medical 20 mg dose, [facility] 11/20/20 at 2000, SAHARA proMETHazin No 25mg [...] ONCE, 1 [place] injection 00 :00 dose, [place] Medic al 50 mcg 11/20/20 at Branch 1945, Routine NaCl 0.9% 1000mL at 999 Uni vers (NS) bolus 5-10 05-10 mL/hr, ity of infusion 00:00: 01:47 1,000 mL, Tim as 1,000 mL 00 :00 IV Medical Infusion, Branch ONCE, 1 dose, 11/20/20 at 1900, SAHARA cefdinir No [id number] 300mg Take 1 U nivers 300 mg 11-20 05-20 capsule by ity of capsule 00:00: 04:59 mouth 2 [place] 00 :00 (two) Medical times [place] daily for 10 days. buPROPion 150mg QD Take [address] [facility] (WELLBUTRIN -17 -16 tablet [facility]) 150 MG 00:00: 23:59 (150 mg Med ical 24 hr 00 :00 total) by Center tablet mouth daily. citalopram 40mg QD Take [address] [facility] (CELEXA) [...] times daily Use as directed. insulin 2020-0 2020- No 0U Inject [facility] lispro 1-16 01-15 0-12 [facility] (HUMALOG) 00:00: 23:59 subcutaneo M edical 100 unit/mL 00 :00 [facility] 3 Center injection (three) times daily before meals. insulin 2020-0 2020- No 25U Inject [address] [facility] [address] lispro 1-16 01-15 [facility] (HUMALOG) 00:00: 23:59 subcutaneo M edical 100 unit/mL 00 :00 [facility] 3 Center injection (three) times daily before meals. normal 2017-07 No 1,000 mL, Memori a saline 0.9% 1-08 Rate: 100 l IV 1,000 mL 11:04: ml/hr, Herm philip 00 Infuse over: 10 hr, Route: IV, Dosing Weight 131.818 kg, Total Volume: 1,000, Start date: 05/22/18 5:04:00 NEEDLE GRINDER, Duration: 30 day, Stop date: 06/21/18 5:03:00 NEEDLE GRINDER, 2.4, m2 normal 2017-07 No 1,000 mL, Memori a saline 0.9% 1-08 Rate: 100 l IV 1,000 mL 11:04: ml/hr, Herm philip 00 Infuse over: 10 hr, Route: IV, Dosing Weight 131.818 kg, Total Volume: 1,000, Start date: 05/22/18 5:04:00 NEEDLE GRINDER, Duration: 30 day, Stop date: 06/21/18 5:03:00 NEEDLE GRINDER, 2.4, m2 normal 2017-07 No 1,000 mL, Memori a saline 0.9% 1-08 Rate: 100 l IV 1,000 mL 11:04: ml/hr, Herm philip 00 Infuse over: 10 hr, Route: IV, Dosing Weight 131.818 kg, Total Volume: 1,000, Start date: 05/22/18 5:04:00 NEEDLE GRINDER, Duration: 30 day, Stop date: 06/21/18 5:03:00 NEEDLE GRINDER, 2.4, m2 normal 2017-07 No 1,000 mL, Memori a saline 0.9% 1-08 Rate: 100 l IV 1,000 mL 11:04: ml/hr, Herm philip 00 Infuse over: 10 hr, Route: IV, Dosing Weight 131.818 kg, Total Volume: 1,000, Start date: 05/22/18 5:04:00 NEEDLE GRINDER, Duration: 30 day, Stop date: 06/21/18 5:03:00 NEEDLE GRINDER, 2.4, m2 normal 2017-07 No 1,000 mL, Memori a saline 0.9% 1-08 Rate: 100 l IV 1,000 mL 11:04: ml/hr, Herm philip 00 Infuse over: 10 hr, Route: IV, Dosing Weight 131.818 kg, Total Volume: 1,000, Start date: 05/22/18 5:04:00 NEEDLE GRINDER, Duration: 30 day, Stop date: 06/21/18 5:03:00 NEEDLE GRINDER, 2.4, m2 normal 2017-07 No 1,000 mL, Memori a saline 0.9% 1-08 Rate: 100 l IV 1,000 mL 11:04: ml/hr, Herm philip 00 Infuse over: 10 hr, Route: IV, Dosing Weight 131.818 kg, Total Volume: 1,000, Start date: 05/22/18 5:04:00 NEEDLE GRINDER, Duration: 30 day, Stop date: 06/21/18 5:03:00 NEEDLE GRINDER, 2.4, m2 normal 2017-07 No 1,000 mL, Memori a saline 0.9% 1-08 Rate: 100 l IV 1,000 mL 11:04: ml/hr, Herm philip 00 Infuse over: 10 hr, Route: IV, Dosing Weight 131.818 kg, Total Volume: 1,000, Start date: 05/22/18 5:04:00 NEEDLE GRINDER, Duration: 30 day, Stop date: 06/21/18 5:03:00 NEEDLE GRINDER, 2.4, m2 Magnesium 2017-07 No Notes: Memori a Sulfate 1-08 WASTE: F/P l 10:36: - Sink; E [place] - Municipal Trash Bin Isolyte S 2017-07 No Notes: Memori a PH-7.4 1-08 (Same as: l (Bolus) IV 10:36: Isolyte S He r[place] 00 PH 7.4) Magnesium 2017-07 No Notes: Memori a Sulfate 1-08 WASTE: F/P l 10:36: - Sink; E [place] - Municipal Trash Bin Isolyte S 2017-07 [...] F/P l 10:36: - Sink; E [place] - Municipal Trash Bin Isolyte S 2017-07 [...] F/P l 10:36: - Sink; E [place] - [employer] Trash Bin Isolyte S 2017-07 No Notes: Memori a PH-7.4 1-08 (Same as: l (Bolus) IV 10:36: Isolyte S [place] 00 PH 7.4) Magnesium 2017-07 No Notes: Memori a Sulfate 1-08 WASTE: F/P l 10:36: - Sink; E [place] - Municipal Trash Bin Isolyte S 2017-07 No Notes: Memori a PH-7.4 1-08 (Same as: l (Bolus) IV 10:36: Isolyte S [place] 00 PH 7.4) Phenergan 2017-07 No 12.5 mg, Erwin benjamin 1-08 0.5 mL, l 10:35: Route: [place] 00 IVPB, Drug form: INJ, ONCE, Dosing Weight 131.818, kg, Priority: STAT, Start date: 05/22/18 4:35:00 NEEDLE GRINDER, Stop date: 05/22/18 4:35:00 NEEDLE GRINDER Phenergan 2017-07 No 12.5 mg, Erwin benjamin 1-08 0.5 mL, l 10:35: Route: [place] 00 IVPB, Drug form: INJ, ONCE, Dosing Weight 131.818, kg, Priority: STAT, Start date: 05/22/18 4:35:00 NEEDLE GRINDER, Stop date: 05/22/18 4:35:00 NEEDLE GRINDER Phenergan 2018-1 No 12.5 mg, Erwin benjamin 1-08 0.5 mL, l 10:35: Route: [place] 00 IVPB, Drug form: INJ, ONCE, Dosing Weight 131.818, kg, Priority: STAT, Start date: 05/22/18 4:35:00 NEEDLE GRINDER, Stop date: 05/22/18 4:35:00 NEEDLE GRINDER Phenergan 2018-1 No 12.5 mg, Erwin benjamin 1-08 0.5 mL, l 10:35: Route: [place] 00 IVPB, Drug form: INJ, ONCE, Dosing Weight 131.818, kg, Priority: STAT, Start date: 05/22/18 4:35:00 NEEDLE GRINDER, Stop date: 05/22/18 4:35:00 NEEDLE GRINDER Phenergan 2018-1 No 12.5 mg, Erwin benjamin 1-08 0.5 mL, l 10:35: Route: [place] 00 IVPB, Drug form: INJ, ONCE, Dosing Weight 131.818, kg, Priority: STAT, Start date: 05/22/18 4:35:00 NEEDLE GRINDER, Stop date: 05/22/18 4:35:00 NEEDLE GRINDER Phenergan 2018- No 12.5 mg, Erwin benjamin 1-08 0.5 mL, l 10:35: Route: [place] 00 IVPB, Drug form: INJ, ONCE, Dosing Weight 131.818, kg, Priority: STAT, Start date: 05/22/18 4:35:00 NEEDLE GRINDER, Stop date: 05/22/18 4:35:00 NEEDLE GRINDER Phenergan 2018-1 No 12.5 mg, Erwin benjamin 1-08 0.5 mL, l 10:35: Route: [place] 00 IVPB, Drug form: INJ, ONCE, Dosing Weight 131.818, kg, Priority: STAT, Start date: 05/22/18 4:35:00 NEEDLE GRINDER, Stop date: 05/22/18 4:35:00 NEEDLE GRINDER Wellbutrin Wellbutrin 2018 No 1{table BID Wellbutrin SR 150 MG SR 150 MG 0-04 t_in_th SR 150 MG 00:00: e_morni 00 ng} Wellbutrin Wellbutrin 20181 No 1{table BID Wellbutrin SR 150 MG SR 150 MG 0-04 t_in_th SR 150 MG 00:00: e_morni 00 ng} Wellbutrin Wellbutrin 2017- No 1{table BID SR 150 MG SR 150 MG 0-04 t_in_th 00:00: e_morni 00 ng} Wellbutrin Wellbutrin 2017- [...] S pirit e e 00:00: - [facility] Seroquel Seroquel Yes Na Gamble 1 tablet [place] 7-16 Spirit 00:00: [facility] Docusate Yes 100 mg = [...] tab, PO, l 14:56: BID, 0 [place] 00 Refill(s) acetaminoph Yes 1,000 mg = [...] TOP, l de 0.05 14:56: Daily, [place] MG/MG 00 Remove Transdermal after 12 Patch hours, 0 [Lidoderm] Refill(s) Docusate Yes 100 mg = 1 Mem oria Sodium 100 5-08 cap, PO, l MG Oral 14:56: BID, 0 [place] Capsule 00 Refill(s) Zosyn Yes 0 Memoria 5-08 Refill(s) l 14:56: [place] 00 celecoxib Yes 200 mg = 1 Me moria 200 mg oral 5-08 cap, PO, l capsule 14:56: BID, 0 [place] 00 Refill(s) ascorbic Yes 500 mg = [...] n 5-08 Daily, 0 l 14:56: Refill(s) [place] 00 methocarbam Yes 1,000 mg = Memoria [...] PO, l MG Oral 14:56: BID, 0 [place] Capsule 00 Refill(s) Zosyn Yes 0 Memoria [...] TOP, l de 0.05 14:56: Daily, [place] MG/MG 00 Remove Transdermal after 12 Patch [...] PO, l capsule 14:56: BID, 0 [place] 00 Refill(s) ascorbic Yes 500 mg = [...] n 5-08 Daily, 0 l 14:56: Refill(s) [place] 00 methocarbam Yes 1,000 mg = Memoria ol 500 mg 5-08 2 tab, PO, l oral tablet 14:56: Q8H, 0 Herm philip 00 Refill(s) LORazepam Yes 0.5 mg = 1 Me moria 0.5 mg oral 5-08 tab, PO, l tablet 14:56: Q8H, PRN [place] 00 Anxiety, 0 Refill(s) Lidocaine Yes 3 [...] PO, l capsule 14:56: BID, 0 [place] 00 Refill(s) ascorbic Yes 500 mg = [...] n 5-08 Daily, 0 l 14:56: Refill(s) [place] 00 methocarbam Yes 1,000 mg = Memoria ol 500 mg 5-08 2 tab, PO, l oral tablet 14:56: Q8H, 0 Herm philip 00 Refill(s) LORazepam Yes 0.5 mg = 1 Me moria 0.5 mg oral 5-08 tab, PO, l tablet 14:56: Q8H, PRN [place] 00 Anxiety, 0 Refill(s) Lidocaine Yes 3 patch, Erwin benjamin Hydrochlori 5-08 TOP, l de 0.05 14:56: Daily, [place] MG/MG 00 Remove Transdermal after 12 Patch hours, 0 [Lidoderm] Refill(s) Docusate Yes 100 mg = 1 Mem oria Sodium 100 5-08 cap, PO, l MG Oral 14:56: BID, 0 [place] Capsule 00 Refill(s) Zosyn Yes 0 Memoria 5-08 Refill(s) l 14:56: [place] 00 celecoxib Yes 200 mg = 1 Me moria 200 mg oral 5-08 cap, PO, l capsule 14:56: BID, 0 [place] 00 Refill(s) ascorbic Yes 500 mg = [...] n 5-08 Daily, 0 l 14:56: Refill(s) [place] 00 methocarbam Yes 1,000 mg = Memoria ol 500 mg 5-08 2 tab, PO, l oral tablet 14:56: Q8H, 0 Herm philip 00 Refill(s) LORazepam Yes 0.5 mg = 1 Me moria 0.5 mg oral 5-08 tab, PO, l tablet 14:56: Q8H, PRN [place] 00 Anxiety, 0 Refill(s) Lidocaine Yes 3 patch, Erwin benjamin Hydrochlori 5-08 TOP, l de 0.05 14:56: Daily, [place] MG/MG 00 Remove Transdermal after 12 Patch hours, 0 [Lidoderm] Refill(s) Docusate Yes 100 mg = 1 Mem oria Sodium 100 5-08 cap, PO, l MG Oral 14:56: BID, 0 [place] Capsule 00 Refill(s) Zosyn Yes 0 Memoria 5-08 Refill(s) l 14:56: [place] 00 celecoxib Yes 200 mg = 1 Me moria 200 mg oral 5-08 cap, PO, l capsule 14:56: BID, 0 [place] 00 Refill(s) ascorbic Yes 500 mg = [...] Memoria 5-06 (Same l 21:00: as:Robaxin [place] ) Robaxin No Notes: Memoria 5-06 (Same l 21:00: as:Robaxin [place] ) Robaxin No Notes: Memoria 5-06 (Same l 21:00: as:Robaxin [place] ) Robaxin No Notes: Memoria 5-06 (Same l 21:00: as:Robaxin [place] 00 ) Robaxin No Notes: Memoria 5-06 (Same l 21:00: as:Robaxin [place] ) Robaxin No Notes: Memoria 5-06 (Same l 21:00: as:Robaxin [place] 00 ) Robaxin No Notes: Memoria 5-06 (Same l 21:00: as:Robaxin [place] 00 ) Oxycodone No Notes: Memori a [...] 5-06 (Same as: l 15:18: Ativan) [place] 00 Trazodone No Notes: Memori a Hydrochlori [...] 5-06 Remove l 02:00: patch 12 [place] 00 hours after applicatio n each day. [...] 5-06 Remove l 02:00: patch 12 [place] 00 hours after applicatio n each day. [...] Herm philip Oral Tablet 00 ) Oxycodone 2017-0 No Notes: Memori a Hydrochlori 5-05 (Same as: l de 5 MG 22:01: Roxicodone Herm philip Oral Tablet 00 ) Celebrex 0 No Notes: Memoria 5-05 NSAID. l 22:00: Please [place] 00 check indication . Not for seizure. (Same As: CeleBREX) Celebrex 2017-0 No Notes: Memoria 5-05 NSAID. l 22:00: Please [place] 00 check indication . Not for seizure. (Same As: CeleBREX) Celebrex 2017-0 No Notes: Memoria 5-05 NSAID. l 22:00: Please [place] 00 check indication . Not for seizure. (Same As: CeleBREX) Celebrex 2017-0 No Notes: Memoria 5-05 NSAID. l 22:00: Please [place] 00 check indication . Not for seizure. (Same As: CeleBREX) Celebrex 0 No Notes: Memoria 5-05 NSAID. l 22:00: Please [place] 00 check indication . Not for seizure. (Same As: CeleBREX) Celebrex 2017-0 No Notes: Memoria 5-05 NSAID. l 22:00: Please [place] 00 check indication . Not for seizure. (Same As: CeleBREX) Celebrex 2017-0 No Notes: Memoria 5-05 NSAID. l 22:00: [...] 5-05 infuse l 21:00: over 2.5 [place] 00 hours Vancomycin 2018-0 No 2001 mg: Me moria 5-05 infuse l 21:00: over 2.5 [place] 00 hours Vancomycin 2018-0 No 2001 mg: Me moria 5-05 infuse l 21:00: over 2.5 [place] 00 hours Vancomycin 2018-0 No 2001 mg: Me moria 5-05 infuse l 21:00: over 2.5 [place] 00 hours Vancomycin No 2001 mg: Me moria 5-05 infuse l 21:00: over 2.5 [place] 00 hours Lidocaine No Notes: Memori a [...] not give l 22:40: IV push. [place] 00 (Same as: Phenergan) Dilaudid No Notes: Memoria 5-04 Same as l 22:40: Dilaudid [place] 00 Phenergan No Notes: Do Mem oria 5-04 not give l 22:40: IV push. [place] 00 (Same as: Phenergan) Dilaudid No Notes: Memoria 5-04 Same as l 22:40: Dilaudid [place] 00 Phenergan No Notes: Do Mem oria 5-04 not give l 22:40: IV push. [place] 00 (Same as: Phenergan) Dilaudid No Notes: Memoria 5-04 Same as l 22:40: Dilaudid [place] 00 Phenergan No Notes: Do Mem oria 5-04 not give l 22:40: IV push. [place] 00 (Same as: Phenergan) Dilaudid No Notes: Memoria 5-04 Same as l 22:40: Dilaudid [place] 00 Phenergan No Notes: Do Mem oria 5-04 not give l 22:40: IV push. [place] 00 (Same as: Phenergan) Dilaudid No Notes: Memoria 5-04 Same as l 22:40: Dilaudid [place] 00 Phenergan No Notes: Do Mem oria 5-04 not give l 22:40: IV push. [place] 00 (Same as: Phenergan) Dilaudid No Notes: Memoria 5-04 Same as l 22:40: Dilaudid [place] 00 Phenergan No Notes: Do Mem oria 5-04 not give l 22:40: IV push. [place] 00 (Same as: Phenergan) Dilaudid No Notes: Memoria 5-04 Same as l 22:40: Dilaudid [place] Tramadol No Notes: Not Mem oria 5-04 to exceed l 22:00: 400mg/day. [place] 00 (Same As: Ultram) gabapentin No Notes: Memor ia 5-04 (Same as: l 22:00: Neurontin) [place] Acetaminoph No Notes: Max Memoria en 5-04 acetaminop l 22:00: hen 4000 [place] 00 mg/day (4 gm/day). (Same as: Tylenol Extra Strength) Robaxin No Notes: Memoria 5-04 (Same l 22:00: as:Robaxin [place] ) Tramadol No Notes: Not Mem oria 5-04 to exceed l 22:00: 400mg/day. [place] 00 (Same As: Ultram) gabapentin No Notes: Memor ia 5-04 (Same as: l 22:00: Neurontin) [place] Acetaminoph No Notes: Max Memoria en 5-04 acetaminop l 22:00: hen 4000 [place] 00 mg/day (4 gm/day). (Same as: Tylenol Extra Strength) Robaxin No Notes: Memoria 5-04 (Same l 22:00: as:Robaxin [place] 00 ) Tramadol No Notes: Not Mem oria 5-04 to exceed l 22:00: 400mg/day. [place] 00 (Same As: Ultram) gabapentin No Notes: [...] ia 5-04 (Same as: l 22:00: Neurontin) [place] Acetaminoph No Notes: Max Memoria en 5-04 acetaminop l 22:00: hen 4000 [place] 00 mg/day (4 gm/day). (Same as: Tylenol Extra Strength) Robaxin No Notes: Memoria 5-04 (Same l 22:00: as:Robaxin [place] 00 ) Tramadol No Notes: Not Mem oria 5-04 to exceed l 22:00: 400mg/day. [place] 00 (Same As: Ultram) gabapentin No Notes: Memor ia 5-04 (Same as: l 22:00: Neurontin) [place] Acetaminoph No Notes: Max Memoria en 5-04 acetaminop l 22:00: hen 4000 [place] 00 mg/day (4 gm/day). (Same as: Tylenol [...] 5-04 acetaminop l 22:00: hen 4000 [place] 00 mg/day (4 gm/day). (Same as: Tylenol Extra Strength) Robaxin No Notes: Memoria 5-04 (Same l 22:00: as:Robaxin [place] 00 ) Tramadol 0 No Notes: Not Mem oria 5-04 to exceed l 22:00: 400mg/day. [place] 00 (Same As: Ultram) gabapentin No Notes: Memor ia 5-04 (Same as: l 22:00: Neurontin) [place] Acetaminoph No Notes: Max Memoria en 5-04 acetaminop l 22:00: hen 4000 [place] 00 mg/day (4 gm/day). (Same as: Tylenol Extra Strength) Robaxin No Notes: Memoria 5-04 (Same l 22:00: as:Robaxin [place] 00 ) Oxycodone No Notes: Memori a [...] 5-04 (Same as: l 21:30: Beneprotei [place] 00 n) Beneprotein No Notes: Erwin benjamin [...] a 5-04 0.25 mL, l 16:01: Route: [place] 00 IVP, Drug form: INJ, ONCE, Start date: 11/15/17 11:01:00 CDT, Stop date: 11/15/17 11:01:00 CDT Dilaudid 2018-0 No 0.5 mg, Memori a 5-04 0.25 mL, l 16:01: Route: IVP, Drug form: INJ, ONCE, Start date: 11/15/17 11:01:00 CDT, Stop date: 11/15/17 11:01:00 CDT Dilaudid 2018-0 No 0.5 mg, Memori a 5-04 0.25 mL, l 16:01: Route: [place] 00 IVP, Drug form: INJ, ONCE, Start date: 11/15/17 11:01:00 CDT, Stop date: 11/15/17 11:01:00 CDT Dilaudid 2018-0 No 0.5 mg, Memori a 5-04 0.25 mL, l 16:01: Route: [place] 00 IVP, Drug form: INJ, ONCE, Start date: 11/15/17 11:01:00 CDT, Stop date: 11/15/17 11:01:00 CDT Dilaudid 2018-0 No 0.5 mg, Memori a 5-04 0.25 mL, l 16:01: Route: [place] 00 IVP, Drug form: INJ, ONCE, Start date: 11/15/17 11:01:00 CDT, Stop date: 11/15/17 11:01:00 CDT Phenergan 2018-0 No Notes: Memori a 5-04 (Same as: l 15:43: Phenergan) Dilaudid 2017-0 No 2 mg, Memoria 5-04 Route: l 15:43: IVP, ONCE, [place] Dosing Weight 127.027, kg, Priority: STAT, Start date: 11/15/17 10:43:00 CDT, Stop date: 11/15/17 10:43:00 CDT Phenergan 2018-0 No Notes: Memori a 5-04 (Same as: l 15:43: Phenergan) Dilaudid 2017-0 No 2 mg, Memoria 5-04 Route: l 15:43: IVP, ONCE, [place] Dosing Weight 127.027, kg, Priority: STAT, Start date: 11/15/17 10:43:00 CDT, Stop date: 11/15/17 10:43:00 CDT Phenergan 2018-0 No Notes: Memori a 5-04 (Same as: l 15:43: Phenergan) Dilaudid 2017-0 No 2 mg, Memoria 5-04 Route: l 15:43: IVP, ONCE, [place] Dosing Weight 127.027, kg, Priority: STAT, Start date: 11/15/17 10:43:00 CDT, Stop date: 11/15/17 10:43:00 CDT Phenergan 2018-0 No Notes: Memori a 5-04 (Same as: l 15:43: Phenergan) Dilaudid 2017-0 No 2 mg, Memoria 5-04 Route: l 15:43: IVP, ONCE, [place] Dosing Weight 127.027, kg, Priority: STAT, Start date: 11/15/17 10:43:00 CDT, Stop date: 11/15/17 10:43:00 CDT Phenergan 2018-0 No Notes: Memori a 5-04 (Same as: l 15:43: Phenergan) [place] 00 Dilaudid 2017-0 No 2 mg, Memoria 5-04 Route: l 15:43: IVP, ONCE, [place] 00 Dosing Weight 127.027, kg, Priority: STAT, Start date: 11/15/17 10:43:00 CDT, Stop date: 11/15/17 10:43:00 CDT Phenergan No Notes: Memori a 5-04 (Same as: l 15:43: Phenergan) Dilaudid No 2 mg, Memoria 5-04 Route: l 15:43: IVP, ONCE, [place] 00 Dosing Weight 127.027, kg, Priority: STAT, Start date: 11/15/17 10:43:00 CDT, Stop date: 11/15/17 10:43:00 CDT Phenergan No Notes: Memori a 5-04 (Same as: l 15:43: Phenergan) Dilaudid No 2 mg, Memoria 5-04 Route: l 15:43: IVP, ONCE, [place] 00 Dosing Weight 127.027, kg, Priority: STAT, Start date: 11/15/17 10:43:00 CDT, Stop date: 11/15/17 10:43:00 CDT Docusate No Notes: Memoria 5-04 (Same as: l 14:00: Colace) (Do Not Crush) Zinc No Notes: Memoria Sulfate 5-04 (Zinc l 14:00: sulfate [place] 00 capsule) - 220 mg Zinc sulfate [...] Memoria Sulfate 5-04 (Zinc l 14:00: sulfate [place] capsule) - 220 mg Zinc sulfate = 50 mg elemental zinc Same as Zinc Sulfate ascorbic No Notes: Memoria acid 5-04 (Same as: l 14:00: Vitamin C) [place] 00 multivitami No Notes: Erwin benjamin n 5-04 (Same l 14:00: as:Thera) Jason 00 WASTE: F/P - Black; E - Municipal Trash Bin Take with food. Docusate No Notes: Memoria 5-04 (Same as: l 14:00: Colace) Jason (Do Not Crush) Zinc No Notes: Memoria Sulfate 5-04 (Zinc l 14:00: sulfate [place] 00 capsule) - 220 mg Zinc sulfate = 50 mg elemental zinc Same as Zinc Sulfate ascorbic No Notes: Memoria acid 5-04 (Same as: l 14:00: Vitamin C) [place] multivitami No Notes: Erwin benjamin n 5-04 (Same l 14:00: as:Thera) Jason WASTE: F/P - Black; E - Municipal Trash Bin Take with food. Docusate No Notes: Memoria 5-04 (Same as: l 14:00: Colace) [place] (Do Not Crush) Zinc No Notes: Memoria Sulfate 5-04 (Zinc l 14:00: sulfate [place] 00 capsule) - 220 mg Zinc sulfate = 50 mg elemental zinc Same as Zinc Sulfate ascorbic No Notes: Memoria acid 5-04 (Same as: l 14:00: Vitamin C) [place] multivitami No Notes: Erwin benjamin n 5-04 (Same l 14:00: as:Thera) Jason WASTE: F/P - Black; E - Municipal Trash Bin Take with food. Docusate No Notes: Memoria 5-04 (Same as: l 14:00: Colace) [place] (Do Not Crush) Zinc No Notes: Memoria Sulfate 5-04 (Zinc l 14:00: sulfate [place] 00 capsule) - 220 mg Zinc sulfate = 50 mg elemental zinc Same as Zinc Sulfate ascorbic No Notes: Memoria acid 5-04 (Same as: l 14:00: Vitamin C) [place] multivitami No Notes: Erwin benjamin n 5-04 (Same l 14:00: as:Thera) [place] WASTE: F/P - Black; E - Municipal Trash Bin Take with food. Docusate No Notes: Memoria 5-04 (Same as: l 14:00: Colace) [place] (Do Not Crush) Zinc No Notes: Memoria Sulfate 5-04 (Zinc l 14:00: sulfate [place] 00 capsule) - 220 mg Zinc sulfate = 50 mg elemental zinc Same as Zinc Sulfate ascorbic No Notes: Memoria acid 5-04 (Same as: l 14:00: Vitamin C) [place] multivitami No Notes: Erwin benjamin n 5-04 (Same l 14:00: as:Thera) [place] 00 WASTE: F/P - Black; E - Municipal Trash Bin Take with food. Docusate No Notes: Memoria 5-04 (Same as: l 14:00: Colace) [place] (Do Not Crush) Zinc No Notes: Memoria Sulfate 5-04 (Zinc l 14:00: sulfate [place] 00 capsule) - 220 mg Zinc sulfate = 50 mg elemental zinc Same as Zinc Sulfate ascorbic No Notes: Memoria acid 5-04 (Same as: l 14:00: Vitamin C) [place] 00 multivitami No Notes: Erwin benjamin n 5-04 (Same l 14:00: as:Thera) [place] 00 WASTE: F/P - Black; E - Municipal Trash Bin Take with food. Naproxen No Notes: Memoria 5-04 (Same as: l 07:00: Naprosyn) [place] Take with food. Zosyn No Notes: Memoria 5-04 (Same as: l 07:00: Zosyn) Dosing based on Piperacill in component MEDICATION WASTE Product Size: 3375 mg Product Wasted: ___ mg Vancomycin No 2001 mg: Me moria 5-04 infuse l 07:00: over 2.5 [place] 00 hours For adult patients only: Round to nearest 250 mg per Medical Staff approval MEDICATION WASTE Product Size: 1000 mg Product Wasted: ___ mg Enoxaparin No Notes: Memor ia 5-04 (Same as: l 07:00: Lovenox) [place] 00 Naproxen No Notes: Memoria 5-04 (Same as: l 07:00: Naprosyn) [place] Take with food. Zosyn 2018-0 No Notes: [...] 5-04 (Same as: l 07:00: Zosyn) [place] 00 Dosing based on Piperacill in component [...] Memoria 5-04 (Same as: l 07:00: Naprosyn) [place] 00 Take with food. Zosyn 2018-0 No Notes: Memoria 5-04 (Same as: l 07:00: Zosyn) [place] 00 Dosing based on Piperacill in component [...] 5-04 (Same as: l 07:00: Zosyn) [place] 00 Dosing based on Piperacill in component MEDICATION WASTE Product Size: 3375 mg Product Wasted: ___ mg Vancomycin 2018-0 No 2001 mg: Me moria 5-04 infuse l 07:00: over 2.5 [place] 00 hours For adult patients only: Round to nearest 250 mg per Medical Staff approval MEDICATION WASTE Product Size: 1000 mg Product Wasted: ___ mg Enoxaparin 2018-0 No Notes: Memor ia 5-04 (Same as: l 07:00: Lovenox) [place] 00 Naproxen 2017-0 No Notes: Memoria 5-04 (Same as: l 07:00: Naprosyn) [place] 00 Take with food. Zosyn 0 No Notes: Memoria 5-04 (Same as: l 07:00: Zosyn) [place] 00 Dosing based on Piperacill in component [...] 5-04 (Same as: l 07:00: Lovenox) [place] 00 Naproxen 2017-0 No Notes: Memoria 5-04 (Same as: l 07:00: Naprosyn) [place] 00 Take with food. Zosyn 2017-0 No Notes: Memoria 5-04 (Same as: l 07:00: Zosyn) [place] 00 Dosing based on Piperacill in component MEDICATION WASTE Product Size: 3375 mg Product Wasted: ___ mg Vancomycin No 2000 mg: Me moria 5-04 infuse l 07:00: over 2.5 [place] 00 hours For adult patients only: Round [...] / 5-04 (Same as: l Hydrocodone 06:46: [place] Kristen nn Bitartrate 00 325/5) Do 5 [...] 5-04 not exceed l 06:46: 4 gm/day. [place] 00 (Same as: Tylenol) Acetaminoph No Notes: Erwin benjamin en 325 MG / 5-04 (Same as: l Hydrocodone 06:46: [place] Kristen nn Bitartrate 00 325/5) Do 5 [...] / 5-04 (Same as: l Hydrocodone 06:46: [place] Kristen nn Bitartrate 00 325/5) Do 5 [...] 0.9% 5-04 (Same as: l 06:46: BD [place] 00 Posiflush) Acetaminoph No Notes: Do M emoria en 5-04 not exceed l 06:46: 4 gm/day. [place] 00 (Same as: Tylenol) Acetaminoph No Notes: Erwin benjamin en 325 MG / 5-04 (Same as: l Hydrocodone 06:46: [place] Kristen nn Bitartrate 00 325/5) Do 5 [...] 5-04 not exceed l 06:46: 4 gm/day. [place] 00 (Same as: Tylenol) Acetaminoph No Notes: Erwin benjamin en 325 MG / 5-04 (Same as: l Hydrocodone 06:46: [place] Kristen nn Bitartrate 00 325/5) Do 5 [...] 0.9% 5-04 (Same as: l 06:46: BD [place] 00 Posiflush) Acetaminoph No Notes: Do M emoria en 5-04 not exceed l 06:46: 4 gm/day. [place] 00 (Same as: Tylenol) Acetaminoph No Notes: Erwin benjamin en 325 MG / 5-04 (Same as: l Hydrocodone 06:46: [place] Kristen nn Bitartrate 00 325/5) Do 5 MG Oral not exceed Tablet 4gm/day of acetaminop hen. Sodium No 1,000 mL, Memori a Chloride - Rate: 125 l 0.9% IV 06:46: ml/hr, [...] / 5-04 (Same as: l Hydrocodone 06:46: [place] Kristen nn Bitartrate 00 325/5) Do 5 MG Oral not exceed Tablet 4gm/day of acetaminop hen. Reglan No Notes: Memoria 5-04 (Same as: l 04:27: Reglan) [place] Benadryl No Notes: Memoria 5-04 (Same as: l 04:27: Benadryl) [place] Reglan No Notes: Memoria 5-04 (Same as: l 04:27: Reglan) [place] Benadryl No Notes: Memoria 5-04 (Same as: l 04:27: Benadryl) [place] Reglan No Notes: Memoria 5-04 (Same as: l 04:27: Reglan) [place] Benadryl No Notes: Memoria 5-04 (Same as: l 04:27: Benadryl) [place] Reglan No Notes: Memoria 5-04 (Same as: l 04:27: Reglan) [place] Benadryl No Notes: Memoria 5-04 (Same as: l 04:27: Benadryl) [place] Reglan No Notes: Memoria 5-04 (Same as: l 04:27: Reglan) [place] Benadryl No Notes: Memoria 5-04 (Same as: l 04:27: Benadryl) [place] Reglan No Notes: Memoria 5-04 (Same as: l 04:27: Reglan) [place] Benadryl No Notes: Memoria 5-04 (Same as: l 04:27: Benadryl) [place] Reglan No Notes: Memoria 5-04 (Same as: l 04:27: Reglan) [place] Benadryl No Notes: Memoria 5-04 (Same as: l 04:27: Benadryl) [place] Magnesium No Notes: Memori a Sulfate 5-04 [...] F/P l 04:26: - Sink; E [place] - Municipal Trash Bin Sodium No 1,000 [...] F/P l 04:26: - Sink; E [place] - Municipal Trash Bin Sodium 2018-0 No [...] 5-04 1000 l 0.9% 04:26: ml/hr, [place] (Bolus) IV 00 Infuse Over: 1 hr, Route: IV, 1,000, Drug form: INJ, ONCE, Priority: STAT, Dosing Weight 127.273 kg, Start date: 11/14/17 23:26:00 CDT, Stop date: 11/14/17 23:26:00 CDT Magnesium 2018-0 No Notes: Memori a Sulfate 5-04 WASTE: F/P l 04:26: - Sink; E [place] - Municipal Trash Bin Sodium 2018-0 No [...] F/P l 04:26: - Sink; E [place] - Municipal Trash Bin Sodium 2018-0 No 1,000 mL, Memori a Chloride 5-04 1000 l 0.9% 04:26: ml/hr, [place] (Bolus) IV 00 Infuse Over: 1 hr, Route: IV, 1,000, Drug form: INJ, ONCE, Priority: STAT, Dosing Weight 127.273 kg, Start date: 11/14/17 23:26:00 CDT, Stop date: 11/14/17 23:26:00 CDT Magnesium 2017-0 No Notes: Memori a Sulfate 11-15 WASTE: F/P l 04:26: - Sink; E [place] 00 - Municipal Trash Bin Sodium 2018-0 No 1,000 mL, Memori a Chloride 11-15 1000 l 0.9% 04:26: ml/hr, [place] (Bolus) IV 00 Infuse Over: 1 hr, Route: IV, 1,000, Drug form: INJ, ONCE, Priority: STAT, Dosing Weight 127.273 kg, Start date: 11/14/17 23:26:00 CDT, Stop date: 11/14/17 23:26:00 CDT Zosyn 2018-0 No 4.5 gm, Memoria 11-15 Route: l 04:10: IVPB, [place] 00 ONCE, Dosing Weight 127.273, kg, Priority: STAT, Start date: 11/14/17 23:10:00 CDT, Stop date: 11/14/17 23:10:00 CDT, ABX Indication : Bacteremia Vancomycin 2017-0 No 2000 mg: Me moria -04 infuse l 04:10: over 2.5 [place] 00 hours For adult patients only: Round to nearest 250 mg per Medical Staff approval MEDICATION WASTE Product Size: 1000 mg Product Wasted: ___ mg Zosyn 2018-0 No 4.5 gm, Memoria 11-15 Route: l 04:10: IVPB, [place] 00 ONCE, Dosing Weight 127.273, kg, Priority: STAT, Start date: 11/14/17 23:10:00 CDT, Stop date: 11/14/17 23:10:00 CDT, ABX Indication : Bacteremia Vancomycin 2018-0 No 2000 mg: Me moria 5-04 infuse l 04:10: over 2.5 [place] 00 hours For adult patients only: Round to nearest 250 mg per Medical Staff approval MEDICATION WASTE Product Size: 1000 mg Product Wasted: ___ mg Zosyn 2018-0 No 4.5 gm, Memoria 5-04 Route: l 04:10: IVPB, [place] 00 ONCE, Dosing Weight 127.273, kg, Priority: STAT, Start date: 11/14/17 23:10:00 CDT, Stop date: 11/14/17 23:10:00 CDT, ABX Indication : Bacteremia Vancomycin 2018-0 No 2000 mg: Me moria 5-04 infuse l 04:10: over 2.5 [place] 00 hours For adult patients only: Round to nearest 250 mg per Medical Staff approval MEDICATION WASTE Product Size: 1000 mg Product Wasted: ___ mg Zosyn 2018-0 No 4.5 gm, Memoria 5- Route: l 04:10: IVPB, [place] 00 ONCE, [...] mg Zosyn 2018-0 No 4.5 gm, Memoria 5- Route: l 04:10: IVPB, [place] 00 ONCE, Dosing Weight 127.273, kg, Priority: STAT, Start date: 11/14/17 23:10:00 CDT, Stop date: 11/14/17 23:10:00 CDT, ABX Indication : Bacteremia Vancomycin 2018-0 No 2000 mg: Me moria 5-04 infuse l 04:10: over 2.5 [place] 00 hours For adult patients only: Round [...] date: 12/14/17 22:38:00 CDT, 2.36, m2 Acetaminoph 2018-0 No Notes: Max Memoria en 5-04 acetaminop [...] en 5-04 acetaminop l 02:56: hen 4000 [place] 00 mg/day (4 gm/day). (Same as: Tylenol [...] Wasted: _0__ mg Rocephin No Notes: Memoria 11-15 (Same As: l 02:21: Rocephin). [place] 00 MEDICATION WASTE Product Size: 1000 mg Product Wasted: _0__ mg Rocephin No Notes: Memoria 11-15 (Same As: [...] _0__ mg Rocephin 2018-0 No Notes: Memoria 5- (Same As: l 02:21: Rocephin). [place] 00 MEDICATION WASTE Product Size: 1000 mg Product Wasted: _0__ mg Rocephin 2018-0 No Notes: Memoria 5-04 (Same As: l 02:21: Rocephin). [place] 00 MEDICATION WASTE Product Size: 1000 mg Product Wasted: _0__ mg Morphine 2018-0 No 4 mg, Memoria 5-04 Route: l 00:05: IVP, ONCE, [place] Dosing Weight 127.273, kg, Priority: STAT, Start date: 11/14/17 19:05:00 CDT, Stop date: 11/14/17 19:05:00 CDT Morphine 2018-0 No 4 mg, Memoria 5-04 Route: l 00:05: IVP, ONCE, [place] Dosing Weight 127.273, kg, Priority: STAT, Start [...] CDT Morphine 2017-0 No 4 mg, Memoria 5-04 Route: l 00:05: IVP, ONCE, Dosing Weight 127.273, kg, Priority: STAT, Start date: 11/14/17 19:05:00 CDT, Stop date: 11/14/17 19:05:00 CDT Morphine 2017-0 No 4 mg, Memoria 5-04 Route: l [...] 5-03 mL, Route: l 22:56: IVP, Drug [place] 00 form: SOLN, ONCE, Dosing Weight 127.273, [...] 5-03 mL, Route: l 22:56: IVP, Drug [place] 00 form: SOLN, ONCE, Dosing Weight 127.273, [...] 17:56:00 CDT Benadryl 2018-0 No Notes: Memoria 5- (Same as: l 22:56: Benadryl) Morphine 2017-0 No 4 mg, 1 Memori a 5-03 mL, Route: l 22:56: IVP, Drug form: SOLN, ONCE, Dosing Weight 127.273, kg, Priority: STAT, Start date: 11/14/17 17:56:00 CDT, Stop date: 11/14/17 17:56:00 CDT OXYCODONE 2016-07 Yes Take by Unive rs HCL/ACETAMI 2-20 mouth. ity of NOPHEN 10:03: [place] (PERCOCET 17 Medical ORAL) [place] OXYCODONE 2016-07 Yes Take by Unive rs HCL/ACETAMI 2-20 mouth. ity of NOPHEN 04:03: [place] (PERCOCET 17 Medical ORAL) [place] OXYCODONE 2016-07 Yes Take by Unive rs HCL/ACETAMI 2-20 mouth. ity of NOPHEN 04:03: [place] (PERCOCET 17 Medical ORAL) [place] OXYCODONE 2016-07 Yes Take by Unive rs HCL/ACETAMI 2-20 mouth. ity of NOPHEN 04:03: [place] (PERCOCET 17 Medical ORAL) [place] OXYCODONE 2016-07 Yes Take by Unive rs HCL/ACETAMI 2-20 mouth. ity of NOPHEN 04:03: [place] (PERCOCET 17 Medical ORAL) Branch dicyclomine 2016-07 [...] :00 (four) Medical times Branch daily. proMETHazin Yes 25mg Take 1 Univ ers [...] for up to 12 doses. proMETHazin 2017-0 2021- No 25mg Take 1 Uni vers e 25 mg 1-04 05-11 tablet by ity of tablet 00:00: 00:00 mouth [place] 00 :00 every 6 Medical (six) Branch hours as needed for Nausea and Vomiting (N/V) for up to 12 doses. Tylenol Tylenol Yes [place] 1 tablet Co mmon with with as needed [facility] Codeine #4 Codeine #4 - C HI [facility] Macrobid Macrobid Yes Na Gam[place] 1 capsule Common with food [facility] Pantoprazol Pantoprazol Yes Na Gam[place] 1 tablet Common e Sodium e Sodium [facility] Collagenase Collagenase Yes Na Gam[place] 1 Common applicatio Spirit n to - [facility] affected [facility] Pantoprazol Pantoprazol No 1{table QD Pantoprazo [...] Completed Unive rsity of MODERNA, 6MO-5YRS, 00:00:00 [place] [facility] 0.25ML VACCINE Branch SARS-COV-2 COVID-19 2021-01-01 [...] 23:00:00 108 mm[Hg] Univer sity of pressure [facility] Diastolic blood 2022-11-09 23:00:00 64 mm[Hg] Unive rsity of pressure [place] [facility] [place] Heart rate 2022-11-09 23:00:00 106 /min [facility] of [facility] Respiratory rate 2022-11-09 23:00:00 16 /min Univ ersity of [facility] Oxygen saturation 2022-11-09 23:00:00 96 /min Uni versity of in Arterial blood [place] [facility]i efrain by Pulse oximetry Branch Body temperature 2022-11-09 19:25:00 36.78 Abi Univ ers[facility] [place] [facility] Body height 2022-11-09 19:25:00 149.9 cm [facility] [place] [facility] Body weight 2022-11-09 19:25:00 127.007 kg [facility] [place] [facility] BMI 2022-11-09 19:25:00 56.55 kg/m2 [facility] [place] [facility] Systolic blood 2022-10-31 23:00:00 119 mm[Hg] Univer sity of pressure [place] [facility] Diastolic blood 2022-10-31 23:00:00 92 mm[Hg] Unive rsity of [facility] Heart rate 2022-10-31 23:00:00 94 /min [facility] [place] [facility] Respiratory rate 2022-10-31 23:00:00 12 /min Univ ersity of [facility] Oxygen saturation 2022-10-31 23:00:00 99 /min Uni versity of in Arterial blood [facility] efrain by Pulse oximetry Branch Body temperature 2022-10-31 19:36:00 37 Abi Univ [facility] [place] [facility] Body height 2022-10-31 19:36:00 162.6 cm [facility] [place] [facility] Body weight 2022-10-31 19:36:00 117.935 kg [facility] [place] [facility] BMI 2022-10-31 19:36:00 44.63 kg/m2 [facility] [place] [facility] Systolic blood 2022-10-31 18:21:00 114 mm[Hg] Univer sity of pressure [place] [facility] Diastolic blood 2022-10-31 18:21:00 78 mm[Hg] Unive rsity of pressure [place] [facility] Heart rate 2022-10-31 18:21:00 103 /min [facility] [place] [facility] Body weight 2022-10-31 18:21:00 117.935 kg per patient [facility] [place] [facility] BMI 2022-10-31 18:21:00 44.63 kg/m2 [facility] [place] [facility] Systolic blood 2022-10-22 02:00:00 148 mm[Hg] Univer sity of pressure [place] [facility] Diastolic blood 2022-10-22 02:00:00 87 mm[Hg] Unive rsity of pressure [place] [facility] Heart rate 2022-10-22 02:00:00 92 /min [facility] [place] [facility] Respiratory rate 2022-10-22 02:00:00 18 /min Univ [facility] [place] [facility] Oxygen saturation 2022-10-22 02:00:00 99 /min Uni versity of in Arterial blood [place] Medi efrain by Pulse oximetry Branch Body temperature 2022-10-21 22:01:00 36.72 Abi [facility] [place] [facility] Body weight 2022-10-21 22:01:00 118.389 kg [facility] [place] [facility] BMI 2022-10-21 22:01:00 44.80 kg/m2 [facility] [place] [facility] Systolic blood 2022-10-06 01:01:00 140 mm[Hg] Univer sity of pressure [place] [facility] Diastolic blood 2022-10-06 01:01:00 86 mm[Hg] Unive rsity of pressure [place] [facility] Heart rate 2022-10-06 01:01:00 103 /min [facility] [place] [facility] Respiratory rate 2022-10-06 01:01:00 19 /min [facility] [place] [facility] Oxygen saturation 2022-10-06 01:01:00 98 /min Uni versity of in Arterial blood [place] [facility] efrain by Pulse oximetry Branch Body temperature 2022-10-05 20:37:00 36.78 Abi [facility] [place] [facility] Body height 2022-10-05 20:37:00 162.6 cm [facility] [place] [facility] Body weight 2022-10-05 20:37:00 118.389 kg [facility] [place] [facility] BMI 2022-10-05 20:37:00 44.80 kg/m2 [facility] [place] [facility] Systolic blood 2022-09-06 18:18:00 98 mm[Hg] Univer sity of pressure [place] [facility] Diastolic blood 2022-09-06 18:18:00 52 mm[Hg] Unive rsity of pressure [place] [facility] Heart rate 2022-09-06 18:18:00 93 /min [facility] [place] [facility] Body temperature 2022-09-06 18:18:00 36.72 Abi Univ [facility] [place] [facility] Respiratory rate 2022-09-06 18:18:00 16 /min [facility] [place] [facility] Oxygen saturation 2022-09-06 18:18:00 93 /min Uni versity of in Arterial blood [place] Medi efrain by Pulse oximetry Branch Body height 2022-09-04 09:34:00 149.9 cm [facility] [place] [facility] Body weight 2022-09-04 09:34:00 118.389 kg [facility] [place] [facility] BMI 2022-09-04 09:34:00 52.72 kg/m2 [facility] [place] [facility] Systolic blood 2022-09-05 21:30:00 129 mm[Hg] Univer sity of pressure [place] [facility] Diastolic blood 2022-09-05 21:30:00 73 mm[Hg] Unive rsity of pressure [place] [facility] Heart rate 2022-09-05 21:30:00 96 /min [facility] [place] [facility] Respiratory rate 2022-09-05 21:30:00 14 /min Univ [facility] [place] [facility] Oxygen saturation 2022-09-05 21:30:00 95 /min Uni versity of in Arterial blood [place] Medi efrain by Pulse oximetry Branch Body temperature 2022-09-05 20:53:00 36.56 Abi Univ [facility] [place] [facility] Body height 2022-09-04 09:34:00 149.9 cm [facility] [place] [facility] Body weight 2022-09-04 09:34:00 118.389 kg [facility] [place] [facility] BMI 2022-09-04 09:34:00 52.72 kg/m2 [facility] [place] [facility] Systolic blood 2022-08-27 22:09:00 139 mm[Hg] Univer sity of pressure [place] [facility] Diastolic blood 2022-08-27 22:09:00 104 mm[Hg] Unive rsity of pressure [place] [facility] Heart rate 2022-08-27 22:09:00 93 /min [facility] [place] [facility] Respiratory rate 2022-08-27 22:09:00 18 /min Univ [facility] [place] [facility] Oxygen saturation 2022-08-27 22:09:00 96 /min Uni versity of in Arterial blood [place] Medi efrain by Pulse oximetry Branch Body temperature 2022-08-27 19:53:00 36.67 Abi Univ [facility] [place] [facility] Systolic blood 2022-08-25 03:00:00 132 mm[Hg] Univer sity of pressure [place] [facility] Diastolic blood 2022-08-25 03:00:00 89 mm[Hg] Unive rsity of pressure [place] [facility] Heart rate 2022-08-25 03:00:00 91 /min [facility] [place] [facility] Respiratory rate 2022-08-25 03:00:00 18 /min Univ [facility] [place] [facility] Oxygen saturation 2022-08-25 03:00:00 96 /min Uni versity of in Arterial blood [place] Medi efrain by Pulse oximetry Branch Body temperature 2022-08-24 22:12:00 37.06 Abi Univ ers[facility] [place] [facility] Body weight 2022-08-24 22:12:00 131.543 kg [facility] [place] [facility] BMI 2022-08-24 22:12:00 58.57 kg/m2 [facility] [place] [facility] Systolic blood 2022-08-24 00:30:00 115 mm[Hg] Univer sity of pressure [place] [facility] Diastolic blood 2022-08-24 00:30:00 78 mm[Hg] Unive rsity of pressure [place] [facility] Heart rate 2022-08-24 00:30:00 96 /min [facility] [place] [facility] Respiratory rate 2022-08-24 00:30:00 18 /min [facility] [place] [facility] Oxygen saturation 2022-08-24 00:30:00 95 /min Uni versity of in Arterial blood [place] Medi efrain by Pulse oximetry Branch Body temperature 2022-08-23 21:14:00 35.89 Abi [facility] [place] [facility] Body height 2022-08-23 21:14:00 149.9 cm [facility] [place] [facility] Body weight 2022-08-23 21:14:00 127.461 kg [facility] [place] [facility] BMI 2022-08-23 21:14:00 56.76 kg/m2 [facility] [place] [facility] Systolic blood 2022-08-17 01:13:00 119 mm[Hg] Univer sity of pressure [place] [facility] Diastolic blood 2022-08-17 01:13:00 85 mm[Hg] Unive rsity of pressure [place] [facility] Heart rate 2022-08-17 01:13:00 97 /min [facility] [place] [facility] Body temperature 2022-08-17 01:13:00 36.17 Abi Univ [facility] [place] [facility] Respiratory rate 2022-08-17 01:13:00 16 /min [facility] [place] [facility] Oxygen saturation 2022-08-17 01:13:00 94 /min Uni versity of in Arterial blood [place] [facility] efrain by Pulse oximetry Branch Body weight 2022-08-16 09:31:00 126.962 kg [facility] [place] [facility] BMI 2022-08-16 09:31:00 56.53 kg/m2 [facility] [place] [facility] Systolic blood 2022-07-05 18:59:00 125 mm[Hg] Univer sity of pressure [place] [facility] Diastolic blood 2022-07-05 18:59:00 84 mm[Hg] Unive rsity of pressure [place] [facility] Heart rate 2022-07-05 18:59:00 104 /min [facility] [place] [facility] Respiratory rate 2022-07-05 18:59:00 18 /min [facility] [place] [facility] Body weight 2022-07-05 18:59:00 127.007 kg [facility] [place] [facility] BMI 2022-07-05 18:59:00 56.55 kg/m2 [facility] [place] [facility] Oxygen saturation 2022-07-05 18:59:00 98 /min Uni versity of in Arterial blood [facility] by Pulse oximetry Branch Systolic blood 2022-06-25 19:02:00 142 mm[Hg] Univer sity of pressure [place] [facility] Diastolic blood 2022-06-25 19:02:00 99 mm[Hg] Unive rsity of pressure [place] [facility] Heart rate 2022-06-25 19:01:00 91 /min [facility] [place] [facility] Systolic blood 2022-05-21 18:00:00 136 mm[Hg] Univer sity of pressure [place] [facility] Diastolic blood 2022-05-21 18:00:00 92 mm[Hg] Unive rsity of pressure [place] [facility] Heart rate 2022-05-21 18:00:00 99 /min [facility] [place] [facility] Body temperature 2022-05-21 18:00:00 35.83 Abi Univ [facility] [place] [facility] Respiratory rate 2022-05-21 18:00:00 18 /min [facility] [place] [facility] Oxygen saturation 2022-05-21 18:00:00 95 /min Uni versity of in Arterial blood [place] [facility] efrain by Pulse oximetry Branch Body weight 2022-05-21 10:45:00 135.988 kg Universi ty of [facility] BMI 2022-05-21 10:45:00 60.55 kg/m2 [facility] [place] [facility] Body height 2022-05-21 02:02:00 149.9 cm Universi ty of [facility] Systolic blood 2022-05-15 01:11:00 166 mm[Hg] Univer sity of pressure [place] [facility] Diastolic blood 2022-05-15 01:11:00 93 mm[Hg] Unive rsity of [facility] Heart rate 2022-05-15 01:09:00 106 /min Universi ty of [facility] Body temperature 2022-05-15 01:09:00 36.89 Abi Univ [facility] [place] [facility] Respiratory rate 2022-05-15 01:09:00 20 /min [facility] [place] [facility] Body weight 2022-05-15 01:09:00 127.007 kg [facility] [place] [facility] BMI 2022-05-15 01:09:00 56.55 kg/m2 [facility] [place] [facility] Oxygen saturation 2022-05-15 01:09:00 96 /min Uni versity of in Arterial blood [place] [facility] efrain by Pulse oximetry Branch Systolic blood 2022-05-13 03:00:00 138 mm[Hg] Univer sity of pressure [place] [facility] Diastolic blood 2022-05-13 03:00:00 82 mm[Hg] Unive rsity of pressure [place] [facility] Heart rate 2022-05-13 03:00:00 102 /min [facility] [place] [facility] Respiratory rate 2022-05-13 03:00:00 20 /min [facility] [place] [facility] Oxygen saturation 2022-05-13 03:00:00 97 /min Uni versity of in Arterial blood [place] [facility]i efrain by Pulse oximetry Branch Body temperature 2022-05-13 00:13:00 36.5 Abi [facility] [place] [facility] Body weight 2022-05-13 00:13:00 132.904 kg [facility] [place] [facility] BMI 2022-05-13 00:13:00 59.18 kg/m2 [facility] [place] [facility] Systolic blood 2022-05-06 12:42:00 128 mm[Hg] Univer sity of pressure [place] [facility] Diastolic blood 2022-05-06 12:42:00 83 mm[Hg] Unive rsity of pressure [place] [facility] Heart rate 2022-05-06 12:42:00 111 /min [facility] [place] [facility] Body temperature 2022-05-06 12:42:00 35.94 Abi [facility] [place] [facility] Respiratory rate 2022-05-06 12:42:00 18 /min [facility] [place] [facility] Oxygen saturation 2022-05-06 12:42:00 95 /min Uni versity of in Arterial blood [place] [facility]i efrain by Pulse oximetry Branch Body weight 2022-05-06 10:22:00 132.995 kg [facility] [place] [facility] BMI 2022-05-06 10:22:00 59.22 kg/m2 [facility] [place] [facility] Body height 2022-05-04 11:00:00 149.9 cm [facility] [place] [facility] Systolic blood 2022-02-23 17:14:00 130 mm[Hg] Univer sity of pressure [place] [facility] Diastolic blood 2022-02-23 17:14:00 83 mm[Hg] Unive rsity of pressure [place] [facility] Branch Heart rate 2022-02-23 17:14:00 100 /min [facility] Body temperature 2022-02-23 17:14:00 36.72 Abi [facility] Respiratory rate 2022-02-23 17:14:00 20 /min [facility] Oxygen saturation 2022-02-23 17:14:00 96 /min Uni versity of in Ar[facility]ial blood [place] [facility] by Pulse oximetry [facility] Body height 2022-02-15 10:00:00 149.9 cm [facility] Body weight 2022-02-15 10:00:00 123 kg [facility] BMI 2022-02-15 10:00:00 54.77 kg/m2 [facility] Systolic blood 2022-02-20 12:40:00 107 mm[Hg] [facility] Diastolic blood 2022-02-20 12:40:00 64 mm[Hg] Unive [facility]ity [facility] Heart rate 2022-02-20 12:40:00 99 /min [facility] Body temperature 2022-02-20 12:40:00 36.83 Abi [facility] Respiratory rate 2022-02-20 12:40:00 18 /min [facility] Oxygen saturation 2022-02-20 12:40:00 95 /min Uni versity of in [place] blood [place] [facility] by Pulse oximetry Branch Body height 2022-02-15 10:00:00 149.9 cm [facility] Body weight 2022-02-15 10:00:00 123 kg [facility] BMI 2022-02-15 10:00:00 54.77 kg/m2 [facility] Heart rate 2022-02-10 23:00:00 91 /min [facility] Oxygen saturation 2022-02-10 23:00:00 95 /min Uni versity of in Arterial blood [facility] by Pulse oximetry Branch Systolic blood 2022-02-10 22:02:00 134 mm[Hg] [facility] Diastolic blood 2022-02-10 22:02:00 83 mm[Hg] Unive rsity of [facility] Body temperature 2022-02-10 21:00:00 36.83 Abi [facility] Respiratory rate 2022-02-10 21:00:00 28 /min [facility] Body weight 2022-02-10 09:00:00 134.99 kg [facility] BMI 2022-02-10 09:00:00 60.08 kg/m2 [facility] Body height 2022-02-07 22:22:00 149.9 cm [facility] Systolic blood 2022-01-27 03:38:00 126 mm[Hg] [facility] Diastolic blood 2022-01-27 03:38:00 90 mm[Hg] [facility] Heart rate 2022-01-27 03:38:00 97 /min [facility] Respiratory rate 2022-01-27 03:38:00 18 /min Univ ersity of [facility] Oxygen saturation 2022-01-27 03:38:00 97 /min Uni versity of in [facility]ial blood [place] [facility] Pulse oximetry [facility] Body temperature 2022-01-26 22:09:00 36.94 Abi Univ [facility] of [facility] Body height 2022-01-26 22:09:00 149.9 cm [facility] Body weight 2022-01-26 22:09:00 127.007 kg [facility] BMI 2022-01-26 22:09:00 56.55 kg/m2 [facility] Systolic blood 2022-01-17 11:00:00 143 mm[Hg] Univer [facility]ity of [facility] Diastolic blood 2022-01-17 11:00:00 91 mm[Hg] Unive rsity of [facility] Heart rate 2022-01-17 11:00:00 100 /min [facility] Respiratory rate 2022-01-17 11:00:00 16 /min Univ ersity of [facility] Oxygen saturation 2022-01-17 11:00:00 96 /min Uni versity of in Arterial blood [facility] by Pulse oximetry Branch Body temperature 2022-01-17 09:55:00 36.89 Abi Univ [facility] of [facility] Body height 2022-01-17 09:55:00 149.9 cm [facility] Body weight 2022-01-17 09:55:00 127.007 kg [facility] BMI 2022-01-17 09:55:00 56.55 kg/m2 [facility] Systolic blood 2022-01-13 00:43:00 132 mm[Hg] [facility]ity [facility] Diastolic blood 2022-01-13 00:43:00 88 mm[Hg] [facility]ive [facility]ity of [facility] Heart rate 2022-01-13 00:43:00 107 /min [facility] Body temperature 2022-01-13 00:43:00 36.33 Abi [facility] Respiratory rate 2022-01-13 00:43:00 18 /min [facility] Oxygen saturation 2022-01-13 00:43:00 95 /min [facility] versity of in [facility] blood [place] [facility] Pulse oximetry [facility] Body height 2022-01-10 11:31:00 149.9 cm [facility] Body weight 2022-01-10 11:31:00 127.007 kg [facility] BMI 2022-01-10 11:31:00 56.55 kg/m2 [facility] Body temperature 2022-01-06 16:10:00 36.22 Abi [facility] Respiratory rate 2022-01-06 16:10:00 16 /min [facility] Oxygen saturation 2022-01-06 16:10:00 96 /min Uni versity of in Arterial blood [facility] by Pulse oximetry Branch Systolic blood 2022-01-06 16:10:00 127 mm[Hg] [facility] Diastolic blood 2022-01-06 16:10:00 84 mm[Hg] [facility] Heart rate 2022-01-06 16:10:00 98 /min [facility] Body weight 2022-01-06 08:54:00 133.494 kg [facility] BMI 2022-01-06 08:54:00 50.52 kg/m2 [facility] Body height 2022-01-05 03:01:00 162.6 cm [facility] Systolic blood 2021-12-22 17:03:00 132 mm[Hg] [facility] Diastolic blood 2021-12-22 17:03:00 90 mm[Hg] [facility] Heart rate 2021-12-22 17:03:00 78 /min [facility] Body temperature 2021-12-22 17:03:00 35.83 Abi [facility] Respiratory rate 2021-12-22 17:03:00 14 /min [facility] Oxygen saturation 2021-12-22 17:03:00 93 /min [facility] in [facility]ial blood [place] [facility] Pulse oximetry [facility] Body weight 2021-12-22 09:00:00 140.933 kg [facility] BMI 2021-12-22 09:00:00 62.75 kg/m2 [facility] Body height 2021-12-21 12:47:00 149.9 cm [facility] Systolic blood 2021-12-18 20:40:00 125 mm[Hg] [facility] Diastolic blood 2021-12-18 20:40:00 75 mm[Hg] Unive rsity of [facility] Heart rate 2021-12-18 20:40:00 99 /min [facility] Body temperature 2021-12-18 20:40:00 36.67 Abi [facility] Respiratory rate 2021-12-18 20:40:00 20 /min [facility] of [facility] Oxygen saturation 2021-12-18 20:40:00 93 /min Uni versity of in [facility]ial blood [place] [facility] Pulse oximetry [facility] Body weight 2021-12-16 22:13:00 137.485 kg [facility] BMI 2021-12-16 22:13:00 61.22 kg/m2 [facility] Body height 2021-12-15 09:10:00 149.9 cm [facility] of [facility] Systolic blood 2021-11-28 15:49:00 111 mm[Hg] Univer sity of [facility] Diastolic blood 2021-11-28 15:49:00 76 mm[Hg] Unive rsity of [facility] Heart rate 2021-11-28 15:49:00 109 /min [facility] of [facility] Body temperature 2021-11-28 15:49:00 36.06 Abi [facility] Respiratory rate 2021-11-28 15:49:00 18 /min [facility] of [facility] Oxygen saturation 2021-11-28 15:49:00 92 /min Uni versity of in [facility]ial blood [place] [facility] Pulse oximetry [facility] Body weight 2021-11-27 10:47:00 139.481 kg [facility] BMI 2021-11-27 10:47:00 62.11 kg/m2 [facility] Body height 2021-11-22 06:57:00 149.9 cm [facility] Systolic blood 2021-10-16 06:00:00 144 mm[Hg] [facility] Diastolic blood 2021-10-16 06:00:00 93 mm[Hg] [facility] Heart rate 2021-10-16 06:00:00 92 /min [facility] Respiratory rate 2021-10-16 06:00:00 22 /min [facility] Oxygen saturation 2021-10-16 04:00:00 94 /min Uni versity of in Arterial blood [place] [facility] by Pulse oximetry [facility] Body temperature 2021-10-16 03:45:00 37.06 Abi [facility] Body height 2021-10-16 03:45:00 149.9 cm [facility] Body weight 2021-10-16 03:45:00 127.461 kg [facility] BMI 2021-10-16 03:45:00 56.76 kg/m2 [facility] Systolic blood 2021-09-29 03:18:00 113 mm[Hg] [facility] Diastolic blood 2021-09-29 03:18:00 85 mm[Hg] Unive rsity of [facility] Heart rate 2021-09-29 03:18:00 96 /min [facility] Respiratory rate 2021-09-29 03:18:00 18 /min [facility] Oxygen saturation 2021-09-29 03:18:00 93 /min Uni versity of in Arterial blood [place] [facility] by Pulse oximetry [facility] Body temperature 2021-09-29 01:01:16 36.89 Abi [facility] Body weight 2021-09-28 23:13:00 127.461 kg [facility] BMI 2021-09-28 23:13:00 56.76 kg/m2 [facility] Systolic blood 2021-08-08 21:53:00 142 mm[Hg] [facility] Diastolic blood 2021-08-08 21:53:00 88 mm[Hg] [facility] Heart rate 2021-08-08 21:53:00 96 /min [facility] Body temperature 2021-08-08 21:53:00 36.06 Abi [facility] Respiratory rate 2021-08-08 21:53:00 18 /min [facility] Oxygen saturation 2021-08-08 21:53:00 96 /min [facility] vers[facility] of in Arterial blood [place] [facility] Pulse oxim[facility] Body weight 2021-08-08 09:48:00 138.801 kg [facility] BMI 2021-08-08 09:48:00 61.80 kg/m2 [facility] Body height 2021-08-03 10:27:00 149.9 cm [facility] Systolic blood 2021-08-01 03:50:00 142 mm[Hg] [facility] Diastolic blood 2021-08-01 03:50:00 95 mm[Hg] [facility] Heart rate 2021-08-01 03:50:00 93 /min [facility] Respiratory rate 2021-08-01 03:50:00 17 /min [facility] Oxygen saturation 2021-08-01 03:50:00 98 /min Uni versity of in Arterial blood [place] [facility] Pulse oximetry [facility] Body temperature 2021-07-31 20:39:00 36.5 Abi [facility] Body weight 2021-07-31 20:39:00 136.079 kg [facility] BMI 2021-07-31 20:39:00 60.59 kg/m2 [facility] Systolic blood 2021-07-30 01:46:00 134 mm[Hg] [facility] Diastolic blood 2021-07-30 01:46:00 100 mm[Hg] [facility] Heart rate 2021-07-30 01:46:00 102 /min [facility] Respiratory rate 2021-07-30 01:46:00 22 /min [facility] 2021-07-30 01:46:00 96 /min Uni versity of in Arterial blood [facility] by Pulse oximetry Branch Body temperature 2021-07-29 20:52:00 36.67 [facility]i [facility] Body weight 2021-07-29 20:52:00 136.079 kg Universi ty [facility] BMI 2021-07-29 20:52:00 60.59 kg/m2 Universi ty [facility] height 2021-07-04 11:20:00 59 [in_i] [facility] weight 2021-07-04 11:20:00 350 [lb_av] [facility] temperature 2021-07-04 11:20:00 97.8 [degF] [facility] bmi 2021-07-04 11:20:00 70.68 kg/m2 [facility] oximetry 2021-07-04 11:20:00 94 % [facility] blood pressure 2021-07-04 11:20:00 160 mm[Hg] [facility] blood pressure 2021-07-04 11:20:00 80 mm[Hg] [facility] Systolic blood 2021-06-07 23:30:00 175 mm[Hg] [facility]iver [facility]ity of [facility] Diastolic blood 2021-06-07 23:30:00 107 mm[Hg] Unive rsity [facility] Heart rate 2021-06-07 23:30:00 81 /min [facility] Respiratory rate 2021-06-07 23:30:00 21 /min [facility] 2021-06-07 23:30:00 97 /min Uni versity of in Arterial blood [facility] by Pulse oximetry Branch Body weight 2021-06-07 21:55:00 136.079 kg Universi ty [facility] BMI 2021-06-07 21:55:00 60.59 kg/m2 [facility] Body temperature 2021-06-07 21:55:00 37.44 Abi Univ [facility] height 2021-04-11 13:00:00 59 [in_i] [facility] weight 2021-04-11 13:00:00 350 [lb_av] [facility] temperature 2021-04-11 13:00:00 96.8 [degF] [facility] bmi 2021-04-11 13:00:00 70.68 kg/m2 [facility] oximetry 2021-04-11 13:00:00 96 % [facility] blood pressure 2021-04-11 13:00:00 120 mm[Hg] [facility] blood pressure 2021-04-11 13:00:00 77 mm[Hg] [facility] height 2021-01-31 14:20:00 59 [in_i] [facility] weight 2021-01-31 14:20:00 350 [lb_av] [facility] temperature 2021-01-31 14:20:00 95 [degF] [facility] bmi 2021-01-31 14:20:00 70.68 kg/m2 [facility] oximetry 2021-01-31 14:20:00 98 % [facility] blood pressure 2021-01-31 14:20:00 128 mm[Hg] [facility] blood pressure 2021-01-31 14:20:00 82 mm[Hg] [facility] height 2021-01-03 13:40:00 59 [in_i] [facility] weight 2021-01-03 13:40:00 350 [lb_av] [facility] temperature 2021-01-03 13:40:00 97.4 [degF] [facility] bmi 2021-01-03 13:40:00 70.68 kg/m2 [facility] o[facility] 2021-01-03 13:40:00 91 % [facility] blood pressure 2021-01-03 13:40:00 132 mm[Hg] [facility] blood pressure 2021-01-03 13:40:00 87 mm[Hg] [facility] Systolic blood 2020-11-21 01:30:00 163 mm[Hg] Univer [facility]ity of [facility] Diastolic blood 2020-11-21 01:30:00 106 mm[Hg] [facility] Heart rate 2020-11-21 01:30:00 97 /min Universi ty [facility] Respiratory rate 2020-11-21 01:30:00 21 /min Univ ersity of [facility] Oxygen saturation 2020-11-21 01:30:00 97 /min Uni versity of in Arterial blood [facility] by Pulse oximetry Branch Body temperature 2020-11-20 23:27:00 36.83 [facility]i [facility] height 2020-11-20 23:27:00 149.9 cm [facility] Body weight 2020-11-20 23:27:00 136.079 kg [facility] BMI 2020-11-20 23:27:00 60.59 kg/m2 [facility] Systolic blood 2020-11-21 01:30:00 163 mm[Hg] Univer [facility]ity of [facility] Diastolic blood 2020-11-21 01:30:00 106 mm[Hg] Unive rsity of [facility] Heart rate 2020-11-21 01:30:00 97 /min Univers ty [facility] Respiratory rate 2020-11-21 01:30:00 21 /min Univ ersity of [facility] Oxygen saturation 2020-11-21 01:30:00 97 /min Uni versity of in Arterial blood [place] [facility] Pulse oxim[facility] Body temperature 2020-11-20 23:27:00 36.83 Abi [facility] Body height 2020-11-20 23:27:00 149.9 cm Universi [facility] Body weight 2020-11-20 23:27:00 136.079 kg [facility] BMI 2020-11-20 23:27:00 60.59 [facility] Systolic blood 2022-02-19 16:49:00 127 mm[Hg] Univer sity of pressure [facility] Diastolic blood 2022-02-19 16:49:00 86 mm[Hg] Unive rsity of pressure [facility] Heart rate 2022-02-19 16:49:00 101 /min [facility] Body temperature 2022-02-19 16:49:00 36.83 Abi [facility] Respiratory rate 2022-02-19 16:49:00 20 /min [facility] Oxygen saturation 2022-02-19 16:49:00 95 /min Uni versity of in Arterial blood [facility] by Pulse oximetry [place] Body height 2022-02-15 10:00:00 149.9 cm [facility] Body weight 2022-02-15 10:00:00 123 kg [facility] BMI 2022-02-15 10:00:00 54.77 kg/m2 [facility] Temperature Oral 2021-10-25 21:12:00 98.0 F Erwin [facility] (F) Heart Rate 2021-10-25 21:12:00 [facility] [place] Respitory Rate 2021-10-25 21:12:00 [facility] [place] Systolic (mm Hg) 2021-10-25 21:12:00 [facility] [place] Diastolic (mm Hg) 2021-10-25 21:12:00 [facility] [place] Heart Rate 2021-10-25 17:09:26 [facility] [place] Respitory Rate 2021-10-25 17:09:26 [facility] [place] Temperature Oral 2021-10-25 17:09:08 98.2 F [facility] [place] (F) Systolic (mm Hg) 2021-10-25 17:08:50 [facility]win [facility] [place] Diastolic (mm Hg) 2021-10-25 17:08:50 [facility] [place] Heart Rate 2021-10-25 17:08:50 [facility] [place] Respitory Rate 2021-10-25 13:07:22 [facility] Temperature Oral 2021-10-25 13:07:04 97.7 F [facility]win [facility] (F) Systolic (mm Hg) 2021-10-25 13:06:57 [facility]win [facility] Diastolic (mm Hg) 2021-10-25 13:06:57 [facility] Heart Rate 2021-10-23 10:00:21 [facility] [place] Respitory Rate 2021-10-23 10:00:21 [facility] Temperature Oral 2021-10-23 09:59:28 97.5 F Erwin [facility] (F) Systolic (mm Hg) 2021-10-23 09:58:18 Erwin [facility] Diastolic (mm Hg) 2021-10-23 09:58:18 Mem [facility] Heart Rate 2021-10-23 09:58:18 [facility] [place] Heart Rate 2021-10-23 04:58:41 [facility] Respitory Rate 2021-10-23 04:58:41 [facility] [place] Temperature Oral 2021-10-23 04:58:34 97.2 F Erwin [facility] [place] (F) Systolic (mm Hg) 2021-10-23 04:57:48 Erwin [facility] Diastolic (mm Hg) 2021-10-23 04:57:48 [facility] [place] Respitory Rate 2021-10-23 00:54:28 [facility] Systolic (mm Hg) 2021-10-23 00:54:19 Erwin [facility] Diastolic (mm Hg) 2021-10-23 00:54:19 [facility] [place] Temperature Oral 2021-10-23 00:53:24 98.1 F Erwin [facility] [place] (F) Height 2021-10-20 23:39:00 149.86 cm [facility] Weight 2021-10-20 23:39:00 [facility] BMI Calculated 2021-10-20 23:39:00 [facility] [place] Systolic (mm Hg) 2021-10-10 14:00:00 [facility]win [facility] [place] Diastolic (mm Hg) 2021-10-10 14:00:00 Mem [facility] [place] Respitory Rate 2021-10-10 14:00:00 [facility] Respitory Rate 2021-10-10 13:00:00 [facility] [place] Systolic (mm Hg) 2021-10-10 13:00:00 Erwin [facility] Diastolic (mm Hg) 2021-10-10 13:00:00 [facility] [place] Respitory Rate 2021-10-10 12:00:00 [facility] [place] Systolic (mm Hg) 2021-10-10 12:00:00 [facility]win [facility] [place] Diastolic (mm Hg) 2021-10-10 12:00:00 Mem [facility] Respitory Rate 2021-10-09 05:00:00 [facility] [place] Systolic (mm Hg) 2021-10-09 05:00:00 Erwin [facility] [place] Diastolic (mm Hg) 2021-10-09 05:00:00 Mem [facility] [place] Respitory Rate 2021-10-09 04:00:00 [facility] Systolic (mm Hg) 2021-10-09 04:00:00 [facility]win [facility] [place] Diastolic (mm Hg) 2021-10-09 04:00:00 Mem [facility] Respitory Rate 2021-10-09 03:00:00 [facility] [place] Systolic (mm Hg) 2021-10-09 03:00:00 Erwin [facility] Diastolic (mm Hg) 2021-10-09 03:00:00 [facility] [place] Heart Rate 2021-10-06 15:55:41 [facility] [place] Temperature Oral 2021-10-06 15:55:32 98.3 F Erwin [facility] (F) Heart Rate 2021-10-06 15:54:37 [facility] Heart Rate 2021-10-06 12:20:12 [facility] [place] Temperature Oral 2021-10-06 12:19:51 97.7 F Erwin [facility] (F) Temperature Oral 2021-10-06 09:20:54 97.9 F Erwin [facility] (F) Height 2021-10-06 06:18:00 149.86 cm [facility] Weight 2021-10-06 06:18:00 [facility] [place] BMI Calculated 2021-10-06 06:18:00 [facility] Respitory Rate 2018-05-22 17:30:00 [facility] Systolic (mm Hg) 2018-05-22 17:30:00 Erwin [facility] Diastolic (mm Hg) 2018-05-22 17:30:00 Mem [facility] Temperature Oral 2018-05-22 17:30:00 98.4 F Erwin [facility] (F) Temperature Oral 2018-05-22 16:23:00 98.6 F Erwin [facility] [place] (F) Systolic (mm Hg) 2018-05-22 16:23:00 Erwin [facility] [place] Diastolic (mm Hg) 2018-05-22 16:23:00 Mem orial [place] Respitory Rate 2018-05-22 14:00:00 [facility] Systolic (mm Hg) 2018-05-22 14:00:00 Erwin rial [facility] Diastolic (mm Hg) 2018-05-22 14:00:00 Mem o[facility] [place] Respitory Rate 2018-05-22 13:30:00 Mem[facility] BMI Calculated 2018-05-22 10:16:00 [facility] Height 2018-05-22 10:16:00 149.86 cm [facility] Weight 2018-05-22 10:16:00 [facility] [place] Heart Rate 2018-05-22 10:16:00 [facility] Temperature Oral 2018-05-22 10:16:00 97.9 F Erwin [facility] [place] (F) Temperature Oral 2017-11-19 13:40:00 97.2 F Erwin [facility] (F) Systolic (mm Hg) 2017-11-19 13:40:00 Erwin [facility] [place] Diastolic (mm Hg) 2017-11-19 13:40:00 Mem orial [facility] Heart Rate 2017-11-19 13:40:00 [facility] [place] Respitory Rate 2017-11-19 13:40:00 Mem[facility] Heart Rate 2017-11-19 05:24:00 [facility] Systolic (mm Hg) 2017-11-19 05:24:00 Erwin rial [facility] Diastolic (mm Hg) 2017-11-19 05:24:00 Mem [facility] [place] Respitory Rate 2017-11-19 05:24:00 [facility] Temperature Oral 2017-11-19 05:24:00 98.1 F Erwin alexanderl [place] (F) Respitory Rate 2017-11-19 01:15:00 [facility] [place] Systolic (mm Hg) 2017-11-19 01:15:00 Erwin [facility] Diastolic (mm Hg) 2017-11-19 01:15:00 Mem orial [facility] Heart Rate 2017-11-19 01:15:00 [facility] [place] Temperature Oral 2017-11-19 01:15:00 98.1 F Erwin benjaminl [facility] (F) Weight 2017-11-18 14:00:00 [facility] Weight 2017-11-17 14:00:00 [facility] [place] Weight 2017-11-15 14:00:00 [facility] [place] BMI Calculated 2017-11-15 05:43:00 [facility] [place] Height 2017-11-15 05:43:00 [facility] 2017-11-14 22:41:00 149.86 cm [facility] [place] BMI Calculated 2017-11-14 22:41:00 Memori [facility] Procedures Procedure Date / Time Performing Clinician Source Performed POCT GLUCOSE(AGE >30DAYS) 2022-11-09 20:33:00 Suzanne Blankenship [facility] COMP. METABOLIC PANEL 2022-11-09 20:32:00 Suzanne Blankenship [facility] ([id number] CBC WITH DIFF 2022-11-09 20:32:00 Alicia [facility] URINALYSIS 2022-11-09 20:32:00 Alicia [facility] INSURANCE CORRESPONDENCE 2022-11-07 05:01:00 Doctor Unassigned, No [facility] POCT GLUCOSE (AUTOMATED) 2022-10-31 22:41:00 [facility] LIPASE 2022-10-31 21:39:00 Jennifer Olivera [facility] COMP. METABOLIC PANEL 2022-10-31 21:39:00 Jennifer Olivera [facility] ([id number]) [facility] AC PANEL 21 + LACTIC ACID 2022-10-31 20:49:00 Jennifer Olivera [facility] CBC WITH DIFF 2022-10-31 20:48:00 Jennifer Olivera [facility] URINALYSIS 2022-10-31 20:48:00 Jennifer Olivera [facility] POCT GLUCOSE (AUTOMATED) 2022-10-31 19:37:00 Jennifer Olivera [facility] POCT GLUCOSE (AUTOMATED) 2022-10-22 02:38:00 Lynette Fonseca Un [facility] URINALYSIS 2022-10-21 23:37:00 Lynette Fonseca [facility] COMP. METABOLIC PANEL 2022-10-21 23:12:00 Lynette Fonseca [facility] ([id number]) [facility] CBC WITH DIFF 2022-10-21 23:12:00 Lynette Fonseca [facility] AC PANEL 20 + LACTIC ACID 2022-10-21 23:10:00 Lynette Fonseca U [facility] URINE CULTURE 2022-10-12 19:14:00 Alhaji Inman [facility] XR SKULL <4 VW 2022-10-06 00:48:18 Madonna Helms [facility] POCT GLUCOSE (AUTOMATED) 2022-10-06 00:14:00 Madonna Helms [facility] URINALYSIS 2022-10-05 23:13:00 Madonna Helms [facility] XR CHEST 1 VW 2022-10-05 22:46:00 Madonna Helms [facility] POCT GLUCOSE (AUTOMATED) 2022-10-05 22:34:00 Madonna Helms [facility] CT ANGIOGRAM 2022-10-05 22:21:20 Madonna Helms [facility] ABDOMEN/PELVIS [facility] LACTIC ACID WHOLE BLOOD 2022-10-05 21:48:00 Madonna Helms [facility] LIPASE 2022-10-05 21:47:00 Madonna Helms [facility] MAGNESIUM 2022-10-05 21:47:00 Madonna Helms [facility] COMP. METABOLIC PANEL 2022-10-05 21:47:00 Madonna Helms [facility] ([id number]) Medical Branch CBC WITH DIFF 2022-10-05 21:47:00 Madonna Helms [facility] COVID-19 (ID NOW RAPID 2022-10-05 21:47:00 Madonna Helms [facility] TESTING) [facility] POCT GLUCOSE (AUTOMATED) 2022-09-06 18:22:00 [facility] POCT GLUCOSE (AUTOMATED) 2022-09-06 18:22:00 [facility] POCT GLUCOSE (AUTOMATED) 2022-09-06 13:41:00 [facility] POCT GLUCOSE (AUTOMATED) 2022-09-06 13:41:00 [facility] BASIC METABOLIC PANEL 2022-09-06 11:02:00 Ab Wolff [facility] (NA, K, CL, CO2, GLUCOSE, Medica l Branch BUN, CREATININE, CA) CBC WITHOUT DIFF 2022-09-06 11:02:00 Ab Wolff [facility] BASIC METABOLIC PANEL 2022-09-06 11:02:00 Ab Wolff [facility] (NA, K, CL, CO2, GLUCOSE, Medica l Branch BUN, CREATININE, CA) CBC WITHOUT DIFF 2022-09-06 11:02:00 Ab Wolff [facility] POCT GLUCOSE (AUTOMATED) 2022-09-06 02:49:00 [facility] POCT GLUCOSE (AUTOMATED) 2022-09-06 02:49:00 [facility] POCT GLUCOSE (AUTOMATED) 2022-09-05 22:57:00 [facility] POCT GLUCOSE (AUTOMATED) 2022-09-05 22:57:00 [facility] POCT GLUCOSE (AUTOMATED) 2022-09-05 21:25:00 [facility] 2022-09-05 21:25:00 [facility] 2022-09-05 20:31:00 Heath WolffFormerly [facility] CULTURE(AEROBIC/ANAEROBIC Medica l [place] ) FUNGUS (ROUTINE) CULTURE 2022-09-05 20:31:00 Mejia Villavicencio [facility] TISSUE 2022-09-05 20:31:00 [facility] CULTURE(AEROBIC/ANAEROBIC Medica l [place] ) FUNGUS (ROUTINE) CULTURE 2022-09-05 20:31:00 Mejia Villavicencio [facility] WOUND DEBRIDEMENT 2022-09-05 19:57:00 Saud [facility] WOUND DEBRIDEMENT 2022-09-05 19:57:00 Saud [facility] POCT GLUCOSE (AUTOMATED) 2022-09-05 18:17:00 [facility] POCT GLUCOSE (AUTOMATED) 2022-09-05 18:17:00 [facility] POCT GLUCOSE (AUTOMATED) 2022-09-05 15:20:00 [facility] POCT GLUCOSE (AUTOMATED) 2022-09-05 15:20:00 [facility] POCT GLUCOSE (AUTOMATED) 2022-09-05 03:10:00 [facility] POCT GLUCOSE (AUTOMATED) 2022-09-05 03:10:00 [facility] POCT GLUCOSE (AUTOMATED) 2022-09-04 22:42:00 [facility] POCT GLUCOSE (AUTOMATED) 2022-09-04 22:42:00 [facility] POCT GLUCOSE (AUTOMATED) 2022-09-04 17:34:00 Dontae Talley [facility] POCT GLUCOSE (AUTOMATED) 2022-09-04 17:34:00 Dontae Talley [facility] POCT GLUCOSE (AUTOMATED) 2022-09-04 16:41:00 Dontae Talley [facility] POCT GLUCOSE (AUTOMATED) 2022-09-04 16:41:00 Dontae Talley [facility] POCT GLUCOSE (AUTOMATED) 2022-09-04 13:15:00 [facility] 2022-09-04 13:15:00 TalleyDontae lynn [facility] POCT GLUCOSE (AUTOMATED) 2022-09-04 07:38:00 Opal [facility] POCT GLUCOSE (AUTOMATED) 2022-09-04 07:38:00 Opal [facility] POCT GLUCOSE (AUTOMATED) 2022-09-04 06:43:00 Opal [facility] POCT GLUCOSE (AUTOMATED) 2022-09-04 06:43:00 Opal [facility] BASIC METABOLIC PANEL 2022-09-04 06:03:00 [facility] (NA, K, CL, CO2, GLUCOSE, Medica l Branch BUN, CREATININE, CA) BASIC METABOLIC PANEL 2022-09-04 06:03:00 [facility] (NA, K, CL, CO2, GLUCOSE, Medica l Branch BUN, CREATININE, CA) POCT GLUCOSE (AUTOMATED) 2022-09-04 05:32:00 Opal [facility] POCT GLUCOSE (AUTOMATED) 2022-09-04 05:32:00 Opal [facility] URINE CULTURE 2022-09-04 04:20:00 Opal [facility] URINE CULTURE 2022-09-04 04:20:00 Opal [facility] AC PANEL 21 + LACTIC ACID 2022-09-04 04:18:00 Kwadwo Joseph [facility] AC PANEL 21 + LACTIC ACID 2022-09-04 04:18:00 Kwadwo Joseph [facility] BASIC METABOLIC PANEL 2022-09-04 02:48:00 Diomedes Joseph [facility] (NA, K, CL, CO2, GLUCOSE, Medica l Branch BUN, CREATININE, CA) CBC WITH DIFF 2022-09-04 02:48:00 [place], [facility] URINALYSIS 2022-09-04 02:48:00 [facility] 2022-09-04 02:48:00 Opal Rivasoneil [facility] (NA, K, CL, CO2, GLUCOSE, Medica l Branch BUN, CREATININE, CA) CBC WITH DIFF 2022-09-04 02:48:00 [place], [facility] URINALYSIS 2022-09-04 02:48:00 Opal [facility] POCT GLUCOSE (AUTOMATED) 2022-08-25 02:37:00 Madonna Helms [facility] LIPASE 2022-08-25 00:31:00 Madonna Helms [facility] COMP. METABOLIC PANEL 2022-08-25 00:31:00 Madonna Helms [facility] ([id number]) [facility] URINALYSIS 2022-08-24 23:49:00 Madonna Helms [facility] CBC WITH DIFF 2022-08-24 23:43:00 Madonna Helms [facility] AC PANEL 21 + LACTIC ACID 2022-08-24 00:00:00 Susan Adhikari [facility] POCT GLUCOSE (AUTOMATED) 2022-08-23 23:07:00 Susan Adhikari [facility] POCT GLUCOSE (AUTOMATED) 2022-08-23 22:13:00 Susan Adhikari [facility] MAGNESIUM 2022-08-23 21:40:00 Susan Adhikari [facility] COMP. METABOLIC PANEL 2022-08-23 21:40:00 Susan Adhikari [facility] ([id number]) Medical Branch CBC WITH DIFF 2022-08-23 21:40:00 Susan Adhikari [facility] POCT GLUCOSE (AUTOMATED) 2022-08-23 21:13:00 Susan Adhikari [facility] POCT GLUCOSE (AUTOMATED) 2022-08-16 23:54:00 Courtney Mendes [facility] POCT GLUCOSE (AUTOMATED) 2022-08-16 17:33:00 Courtney Mendes [facility] POCT GLUCOSE (AUTOMATED) 2022-08-16 13:57:00 Courtney Mendes [facility] PHOSPHORUS 2022-08-16 11:34:00 Courtney Mendes [facility] MAGNESIUM 2022-08-16 11:34:00 Yolis [facility] FREE T4 2022-08-16 11:34:00 Yolis jennifer [facility] THYROID STIMULATING 2022-08-16 11:34:00 Courtney Mendes [facility] HORMONE [facility] COMP. METABOLIC PANEL 2022-08-16 11:34:00 Courtney Mendes [facility] ([id number]) [facility] LIPID PANEL ([id number])(TOTAL 2022-08-16 11:34:00 Courtney Mendes [facility] CHOLESTEROL, [facility] TRIGLYCERIDES, HDL) CBC WITH DIFF 2022-08-16 11:34:00 Courtney Mendes [facility] GLYCOSYLATED HEMOGLOBIN 2022-08-16 11:34:00 Courtney Mendes [facility] (A1C) [facility] N-TERMINAL PRO-BNP 2022-08-16 11:34:00 Courtney Mendes [facility] FREE T3 2022-08-16 11:34:00 Yolis jennifer [facility] POCT GLUCOSE (AUTOMATED) 2022-08-16 09:33:00 Courtney Mendes [facility] POCT GLUCOSE (AUTOMATED) 2022-08-16 02:19:00 Jennifer Olivera [facility] POCT GLUCOSE (AUTOMATED) 2022-08-16 01:09:00 Jennifer Olivera [facility] POCT GLUCOSE (AUTOMATED) 2022-08-15 23:44:00 Jennifer [facility]a [facility] CT ABDOMEN PELVIS W 2022-08-15 23:40:00 Jennifer Olivera [facility] CONTRAST [facility] URINALYSIS 2022-08-15 22:21:00 Jennifer Olivera [facility] POCT GLUCOSE (AUTOMATED) 2022-08-15 22:19:00 Jennifer Olivera [facility] AC PANEL 20 + LACTIC ACID 2022-08-15 20:54:00 [facility] 2022-08-15 20:41:00 Jennifer Olivera [facility] TROPONIN I 2022-08-15 20:41:00 Jennifer Olivera [facility] COMP. METABOLIC PANEL 2022-08-15 20:41:00 Jennifer Olivera [facility] ([id number]) [facility] CBC WITH DIFF 2022-08-15 20:41:00 Jennifer Olivera [facility] N-TERMINAL PRO-BNP 2022-08-15 20:41:00 Jennifer Olivera [facility] HB ECG ROUTINE & RHYTHM 2022-08-15 20:37:16 Jennifer Olivera [facility] EMERGENCY DEPARTMENT 2022-08-15 06:01:00 Doctor Unassigned, No [facility] DOCUMENTS [facility] PATIENT QUESTIONNAIRE 2022-07-05 06:01:00 Doctor Unassigned, No [facility] POCT HEMOGLOBIN A1C TEST 2022-06-25 19:04:00 Yudi Holloway [facility] POCT GLUCOSE (AUTOMATED) 2022-05-21 22:58:00 Negar Guardado [facility] POCT GLUCOSE (AUTOMATED) 2022-05-21 18:00:00 Negar Guardado [facility] POCT GLUCOSE (AUTOMATED) 2022-05-21 13:46:00 Negar Guardado [facility] BASIC METABOLIC PANEL 2022-05-21 10:49:00 [facility] ([facility], K, CL, CO2, GLUCOSE, Medica l Branch BUN, CREATININE, CA) CBC WITH DIFF 2022-05-21 10:49:00 [facility] LACTIC ACID WHOLE BLOOD 2022-05-21 02:31:00 [facility] / MSSA SCREEN BY 2022-05-21 02:31:00 Negar Guardado [facility] PCR, [facility] POCT GLUCOSE (AUTOMATED) 2022-05-21 02:09:00 Negar Guardado [facility] BLOOD CULTURE SCREEN 2022-05-21 00:35:00 Lynette Fonseca [facility] URINALYSIS 2022-05-20 23:26:00 Lynette Fonseca [facility] BLOOD CULTURE SCREEN 2022-05-20 23:15:00 Lynette Fonseca [facility] COMP. METABOLIC PANEL 2022-05-20 23:08:00 Lynette Fonseca [facility] ([id number]) [facility] CBC WITH DIFF 2022-05-20 23:08:00 Lynette Fonseca [facility] LACTIC ACID WHOLE BLOOD 2022-05-20 23:07:00 Lynette Fonseca [facility] CT ABDOMEN PELVIS W 2022-05-13 02:06:00 Carmelita Serna [facility] CONTRAST [facility] LIPASE 2022-05-13 00:59:00 Carmelita Serna [facility] COMP. METABOLIC PANEL 2022-05-13 00:59:00 Carmelita Serna [facility] ([id number]) [facility] CBC WITH DIFF 2022-05-13 00:59:00 Carmelita Serna [facility] URINALYSIS 2022-05-13 00:49:00 Carmelita Serna [facility] POCT GLUCOSE (AUTOMATED) 2022-05-06 13:14:00 Kaylee Argueta [facility] POCT GLUCOSE (AUTOMATED) 2022-05-06 01:14:00 Kaylee Argueta [facility] POCT GLUCOSE (AUTOMATED) 2022-05-05 21:19:00 Kaylee Argueta [facility] BASIC METABOLIC PANEL 2022-05-05 11:23:00 Kosta [facility] (NA, K, CL, CO2, GLUCOSE, Medica l Branch BUN, CREATININE, CA) CBC WITH DIFF 2022-05-05 11:16:00 Kosta [facility] MRSA / MSSA SCREEN BY 2022-05-05 01:13:00 Negar Guardado [facility] PCR, [facility] POCT GLUCOSE (AUTOMATED) 2022-05-05 01:11:00 Kosta [facility] POCT GLUCOSE (AUTOMATED) 2022-05-04 21:32:00 Kosta [facility] URINE CULTURE 2022-05-04 16:17:00 Kosta [facility] POCT GLUCOSE (AUTOMATED) 2022-05-04 16:08:00 Kosta [facility] POCT GLUCOSE (AUTOMATED) 2022-05-04 12:43:00 Kosta [facility] ASPIRATE OR ABSCESS 2022-05-04 07:35:00 Opal [facility] CULTURE(AEROBIC/ANAEROBIC Medica l Branch ) URINALYSIS 2022-05-04 07:32:[address] [facility] [address] ABDOMEN PELVIS W 2022-05-04 07:25:15 Opal [facility] CONTRAST [facility] BLOOD CULTURE SCREEN 2022-05-04 06:01:00 [facility]-05-04 06:01:00 Opal [facility] COMP. METABOLIC PANEL 2022-05-04 06:01:00 Diomedes Joseph [facility] ([id number]) Medical [place] CBC WITH DIFF 2022-05-04 06:01:00 Opal [facility] POCT GLUCOSE (AUTOMATED) 2022-02-23 18:34:00 Victorino Conroy [facility] POCT GLUCOSE (AUTOMATED) 2022-02-23 14:37:00 Victorino Conroy [facility] BASIC METABOLIC PANEL 2022-02-23 13:22:00 [facility] (NA, K, CL, CO2, GLUCOSE, Medica l Branch BUN, CREATININE, CA) CBC WITH DIFF 2022-02-23 13:22:00 Kingsley [facility] POCT GLUCOSE (AUTOMATED) 2022-02-23 10:56:00 Victorino Conroy [facility] POCT GLUCOSE (AUTOMATED) 2022-02-23 05:46:00 Victorino Conroy [facility] POCT GLUCOSE (AUTOMATED) 2022-02-23 02:17:00 Victorino Conroy [facility] POCT GLUCOSE (AUTOMATED) 2022-02-22 23:13:00 Victorino Conroy [facility] POCT GLUCOSE (AUTOMATED) 2022-02-22 18:22:00 Victorino Conroy [facility] POCT GLUCOSE (AUTOMATED) 2022-02-22 14:56:00 Victorino Conroy [facility] BASIC METABOLIC PANEL 2022-02-22 10:03:00 Kingsley [facility] (NA, K, CL, CO2, GLUCOSE, Medica l Branch BUN, CREATININE, CA) CBC WITH DIFF 2022-02-22 10:03:00 Kingsley [facility] POCT GLUCOSE (AUTOMATED) 2022-02-22 02:18:00 Victorino Conroy [facility] POCT GLUCOSE (AUTOMATED) 2022-02-21 22:26:00 Victorino Conroy [facility] POCT GLUCOSE (AUTOMATED) 2022-02-21 18:57:00 Victorino Conroy [facility] POCT GLUCOSE (AUTOMATED) 2022-02-21 18:57:00 [facility] VEN[facility] ARMS 2022-02-21 17:28:45 Kingsley [facility] BILATERAL - BY VASCULAR [facility] LAB US DUPLEX VENOUS ARMS 2022-02-21 17:28:45 Kingsley [facility] BILATERAL - BY VASCULAR [facility] LAB POCT GLUCOSE (AUTOMATED) 2022-02-21 15:20:00 Victorino Conroy [facility] POCT GLUCOSE (AUTOMATED) 2022-02-21 15:20:00 Victorino Conroy [facility] MAGNESIUM 2022-02-21 10:19:[address] [facility] BASIC METABOLIC PANEL 2022-02-21 10:19:00 Ayo [facility] (NA, K, CL, CO2, GLUCOSE, [place] Medica l Branch BUN, CREATININE, CA) CBC WITH DIFF 2022-02-21 10:19:[address] [facility] MAGNESIUM 2022-02-21 10:19:[address] [facility] BASIC METABOLIC PANEL 2022-02-21 10:19:00 Ayo [facility] (NA, K, CL, CO2, GLUCOSE, [place] [facility] BUN, CREATININE, CA) CBC WITH DIFF 2022-02-21 10:19:[address] [facility] POCT GLUCOSE (AUTOMATED) 2022-02-21 02:44:00 Victorino Conroy [facility] POCT GLUCOSE (AUTOMATED) 2022-02-21 02:44:00 Victorino Conroy [facility] POCT GLUCOSE (AUTOMATED) 2022-02-20 22:02:00 Victorino Conroy [facility] POCT GLUCOSE (AUTOMATED) 2022-02-20 22:02:00 Victorino Conroy [facility] FUNGUS (ROUTINE) CULTURE 2022-02-20 17:03:00 Chalino Paul [facility] A Medical Branch TISSUE 2022-02-20 17:03:00 Sarah Beth Paul [facility] CULTURE(AEROBIC/ANAEROBIC A Medica l Branch ) FUNGUS (ROUTINE) CULTURE 2022-02-20 17:03:00 Chalino Paul [facility] TISSUE 2022-02-20 17:03:00 Sarah Beth Paul [facility] CULTURE(AEROBIC/ANAEROBIC A Medica l Branch ) FUNGUS (ROUTINE) CULTURE 2022-02-20 17:00:00 Chalino Paul [facility] TISSUE 2022-02-20 17:00:00 Sarah Beth Paul [facility] CULTURE(AEROBIC/ANAEROBIC A Medica l Branch ) FUNGUS (ROUTINE) CULTURE 2022-02-20 17:00:00 Chalino Paul [facility] TISSUE 2022-02-20 17:00:00 Sarah Beth Paul [facility] CULTURE(AEROBIC/ANAEROBIC A Medica l Branch ) FUNGUS (ROUTINE) CULTURE 2022-02-20 16:59:00 Chalino Paul [facility] TISSUE 2022-02-20 16:59:00 Sarah Beth Paul [facility] CULTURE(AEROBIC/ANAEROBIC A Medica l Branch ) FUNGUS (ROUTINE) CULTURE 2022-02-20 16:59:00 Chalino Paul [facility] TISSUE 2022-02-20 16:59:00 Sarah Beth Paul [facility] CULTURE(AEROBIC/ANAEROBIC A Medica l Branch ) FOOT DEBRIDEMENT 2022-02-20 16:11:00 Sarah Beth Paul [facility] FOOT DEBRIDEMENT 2022-02-20 16:11:00 Sarah Beth Paul [facility] COVID-19 (ID NOW RAPID 2022-02-20 14:36:00 David Wynn [facility] TESTING) Medical Branch LAB ONLY COVID 2022-02-20 14:36:00 David Wynn [facility] INTERPRETATION [facility] COVID-19 (ID NOW RAPID 2022-02-20 14:36:00 David Wynn [facility] TESTING) Medical Branch LAB ONLY COVID 2022-02-20 14:36:00 David Wynn [facility] POCT GLUCOSE (AUTOMATED) 2022-02-20 14:07:00 Bret Martinez [facility] POCT GLUCOSE (AUTOMATED) 2022-02-20 14:07:00 Bret Martinez [facility] HB ECG ROUTINE & RHYTHM 2022-02-20 13:27:17 Concetta Jackson [facility] CBC WITH DIFF 2022-02-20 10:55:00 Ayo, [facility] CBC WITH DIFF 2022-02-20 10:55:[address] [facility] MAGNESIUM 2022-02-20 10:40:[address] [facility] BASIC METABOLIC PANEL 2022-02-20 10:40:00 Negar Rollins [facility] (NA, K, CL, CO2, GLUCOSE, [place] [facility]ica [facility] BUN, CREATININE, CA) COVID-19 (ID NOW RAPID 2022-02-20 10:40:00 [facility] LAB ONLY COVID 2022-02-20 10:40[facility] MAGNESIUM 2022-02-20 10:40:[address] [facility] BASIC METABOLIC PANEL 2022-02-20 10:40:00 Negar Rollins [facility] (NA, K, CL, CO2, GLUCOSE, [place] [facility]ica [facility] BUN, CREATININE, CA) COVID-19 (ID NOW RAPID 2022-02-20 10:40:00 [facility] TESTING) Medical Branch LAB ONLY COVID 2022-02-20 10:40:[address] [facility] POCT GLUCOSE (AUTOMATED) 2022-02-20 02:29:00 Bret Martinez Uni [facility] POCT GLUCOSE (AUTOMATED) 2022-02-20 02:29:00 Bret Martinez [facility] POCT GLUCOSE (AUTOMATED) 2022-02-19 23:39:00 Bret Martinez [facility] POCT GLUCOSE (AUTOMATED) 2022-02-19 23:39:00 Bret Martinez [facility] POCT GLUCOSE (AUTOMATED) 2022-02-19 17:10:00 Bret Martinez [facility] POCT GLUCOSE (AUTOMATED) 2022-02-19 17:10:00 Bret Martinez [facility] POCT GLUCOSE (AUTOMATED) 2022-02-19 17:10:00 Bret Martinez [facility] POCT GLUCOSE (AUTOMATED) 2022-02-19 15:54:00 Bret Martinez [facility] POCT GLUCOSE (AUTOMATED) 2022-02-19 15:54:00 Bret Martinez [facility] POCT GLUCOSE (AUTOMATED) 2022-02-19 15:54:00 [facility] 2022-02-19 08:36:00 Vicky [facility] BASIC METABOLIC PANEL 2022-02-19 08:36:00 [facility] (NA, K, CL, CO2, GLUCOSE, Medica l Branch BUN, CREATININE, CA) CBC WITH DIFF 2022-02-19 08:36:00 Jose A [facility] MAGNESIUM 2022-02-19 08:36:00 Jose A [facility] MAGNESIUM 2022-02-19 08:36:00 Jose A [facility] BASIC METABOLIC PANEL 2022-02-19 08:36:00 Jose A [facility] (NA, K, CL, CO2, GLUCOSE, Medica l Branch BUN, CREATININE, CA) SEDIMENTATION RATE 2022-02-19 08:36:00 Vicky [facility] CBC WITH DIFF 2022-02-19 08:36:00 Jose A [facility] MAGNESIUM 2022-02-19 08:36:00 Jose A [facility] BASIC METABOLIC PANEL 2022-02-19 08:36:00 Jose A [facility] (NA, K, CL, CO2, GLUCOSE, Medica l Branch BUN, CREATININE, CA) SEDIMENTATION RATE 2022-02-19 08:36:00 Vicky Indira [facility] CBC WITH DIFF 2022-02-19 08:36:00 Jose A [facility] POCT GLUCOSE (AUTOMATED) 2022-02-19 00:57:00 Vic Mcdonald B [facility] POCT GLUCOSE (AUTOMATED) 2022-02-19 00:57:00 Vic Mcdonald B [facility] POCT GLUCOSE (AUTOMATED) 2022-02-19 00:57:00 Vic Mcdonald B [facility] POCT GLUCOSE (AUTOMATED) 2022-02-18 21:26:00 Vic Mcdonald B [facility] POCT GLUCOSE (AUTOMATED) 2022-02-18 21:26:00 Fiorella Mcdonaldy B [facility] POCT GLUCOSE (AUTOMATED) 2022-02-18 21:26:00 Fiorella Mcdonaldy B [facility] POCT GLUCOSE (AUTOMATED) 2022-02-18 16:47:00 Fiorella Mcdonaldy B [facility] POCT GLUCOSE (AUTOMATED) 2022-02-18 16:47:00 Fiorella Mcdonaldy B [facility] POCT GLUCOSE (AUTOMATED) 2022-02-18 16:47:00 Harry Vic B [facility] BASIC METABOLIC PANEL 2022-02-18 14:21:00 Nai Naranjo [facility] (NA, K, CL, CO2, GLUCOSE, Medica l Branch BUN, CREATININE, CA) C-REACTIVE PROTEIN 2022-02-18 14:21:00 Vicky [facility] C-REACTIVE PROTEIN 2022-02-18 14:21:00 [facility] BASIC METABOLIC PANEL 2022-02-18 14:21:00 Nai Naranjo [facility] (NA, K, CL, CO2, GLUCOSE, Medica l Branch BUN, CREATININE, CA) C-REACTIVE PROTEIN 2022-02-18 14:21:00 [facility] 2022-02-18 14:21:00 Nai Naranjo [facility] (NA, K, CL, CO2, GLUCOSE, Medica l Branch BUN, CREATININE, CA) POCT GLUCOSE (AUTOMATED) 2022-02-18 12:34:00 Vic Mcdonald [facility] POCT GLUCOSE (AUTOMATED) 2022-02-18 12:34:00 Vic Mcdonald [facility] POCT GLUCOSE (AUTOMATED) 2022-02-18 12:34:00 Vic Mcdonald B [facility] POCT GLUCOSE (AUTOMATED) 2022-02-18 01:28:00 Vic Mcdonald [facility] POCT GLUCOSE (AUTOMATED) 2022-02-18 01:28:00 Vic Mcdonald [facility] POCT GLUCOSE (AUTOMATED) 2022-02-18 01:28:00 Vic Mcdonald B [facility] POCT GLUCOSE (AUTOMATED) 2022-02-17 21:13:00 Vic Mcdonald B [facility] POCT GLUCOSE (AUTOMATED) 2022-02-17 21:13:00 Vic Mcdonald B [facility] POCT GLUCOSE (AUTOMATED) 2022-02-17 21:13:00 Vic Mcdonald B [facility] POCT GLUCOSE (AUTOMATED) 2022-02-17 16:39:00 Vic Mcdonald B [facility] POCT GLUCOSE (AUTOMATED) 2022-02-17 16:39:00 Vic Mcdonald B [facility] POCT GLUCOSE (AUTOMATED) 2022-02-17 16:39:00 Vic Mcdonald B [facility] POCT GLUCOSE (AUTOMATED) 2022-02-17 13:11:00 Vic Mcdonald [facility] POCT GLUCOSE (AUTOMATED) 2022-02-17 13:11:00 Vic Mcdonald [facility] POCT GLUCOSE (AUTOMATED) 2022-02-17 13:11:00 Vic Mcdonald [facility] MAGNESIUM 2022-02-17 10:28:00 Corbin [facility] BASIC METABOLIC PANEL 2022-02-17 10:28:00 [facility] (NA, K, CL, CO2, GLUCOSE, Medica l Branch BUN, CREATININE, CA) MAGNESIUM 2022-02-17 10:28:00 Butt, [facility] BASIC METABOLIC PANEL 2022-02-17 10:28:00 [facility] (NA, K, CL, CO2, GLUCOSE, Medica l Branch BUN, CREATININE, CA) MAGNESIUM 2022-02-17 10:28:00 Butt [facility] BASIC METABOLIC PANEL 2022-02-17 10:28:00 [facility] (NA, K, CL, CO2, GLUCOSE, Medica l Branch BUN, CREATININE, CA) POCT GLUCOSE (AUTOMATED) 2022-02-17 10:01:00 Vic Mcdonald [facility] POCT GLUCOSE (AUTOMATED) 2022-02-17 10:01:00 Vic Mcdonald [facility] POCT GLUCOSE (AUTOMATED) 2022-02-17 10:01:00 Vic Mcdonald [facility] POCT GLUCOSE (AUTOMATED) 2022-02-17 06:32:00 Vic Mcdonald [facility] POCT GLUCOSE (AUTOMATED) 2022-02-17 06:32:00 Vic Mcdonald [facility] POCT GLUCOSE (AUTOMATED) 2022-02-17 06:32:00 [facility] 2022-02-17 02:01:00 Lacey Alaniz [facility] (NA, K, CL, CO2, GLUCOSE, Medica l Branch BUN, CREATININE, CA) BASIC METABOLIC PANEL 2022-02-17 02:01:00 Lacey Alaniz [facility] (NA, K, CL, CO2, GLUCOSE, Medica l Branch BUN, CREATININE, CA) BASIC METABOLIC PANEL 2022-02-17 02:01:00 Lacey Alaniz [facility] (NA, K, CL, CO2, GLUCOSE, Medica l Branch BUN, CREATININE, CA) POCT GLUCOSE (AUTOMATED) 2022-02-17 01:53:00 Vic Mcdonald [facility] POCT GLUCOSE (AUTOMATED) 2022-02-17 01:53:00 Vic Mcdonald [facility] POCT GLUCOSE (AUTOMATED) 2022-02-17 01:53:00 Vic Mcdonald [facility] POCT GLUCOSE (AUTOMATED) 2022-02-16 23:02:00 Vic Mcdonald [facility] POCT GLUCOSE (AUTOMATED) 2022-02-16 23:02:00 Vic Mcdonald [facility] POCT GLUCOSE (AUTOMATED) 2022-02-16 23:02:00 Vic Mcdonald [facility] XR FOOT 3+ VW BILATERAL 2022-02-16 21:35:00 [place] [facility] XR FOOT 3+ VW BILATERAL 2022-02-16 21:35:00 [place] [facility] Medical [facility] XR FOOT 3+ VW BILATERAL 2022-02-16 21:35:00 [facility] POCT GLUCOSE (AUTOMATED) 2022-02-16 20:45:00 Vic Mcdonald [facility] POCT GLUCOSE (AUTOMATED) 2022-02-16 20:45:00 Vic Mcdonald [facility] POCT GLUCOSE (AUTOMATED) 2022-02-16 20:45:00 Vic Mcdonald [facility] POCT GLUCOSE (AUTOMATED) 2022-02-16 16:41:00 Vic Mcdonald [facility] POCT GLUCOSE (AUTOMATED) 2022-02-16 16:41:00 Vic Mcdonald [facility] POCT GLUCOSE (AUTOMATED) 2022-02-16 16:41:00 Vic Mcdonald [facility] BASIC METABOLIC PANEL 2022-02-16 15:35:00 Vic [facility]cdonald [facility] (NA, K, CL, CO2, GLUCOSE, Medica l Branch BUN, CREATININE, CA) BASIC METABOLIC PANEL 2022-02-16 15:35:00 Vic Mcdonald [facility] (NA, K, CL, CO2, GLUCOSE, Medica l Branch BUN, CREATININE, CA) BASIC METABOLIC PANEL 2022-02-16 15:35:00 Vic Mcdonald [facility] (NA, K, CL, CO2, GLUCOSE, Medica l Branch BUN, CREATININE, CA) BETA HYDROXY-BUTYRATE 2022-02-16 15:34:00 Ab Rodríguez [facility] BETA HYDROXY-BUTYRATE 2022-02-16 15:34:00 Ab Rodríguez [facility] BETA HYDROXY-BUTYRATE 2022-02-16 15:34:00 Ab Rodríguez [facility] POCT GLUCOSE (AUTOMATED) 2022-02-16 14:20:00 Vic Mcdonald [facility] POCT GLUCOSE (AUTOMATED) 2022-02-16 14:20:00 Vic Mcdonald [facility] POCT GLUCOSE (AUTOMATED) 2022-02-16 14:20:00 Vic Mcdonald [facility] POCT GLUCOSE (AUTOMATED) 2022-02-16 12:52:00 Vic Mcdonald [facility] POCT GLUCOSE (AUTOMATED) 2022-02-16 12:52:00 Vic Mcdonald [facility]ity [facility] POCT GLUCOSE (AUTOMATED) 2022-02-16 12:52:00 Vic Mcdonald [facility] POCT GLUCOSE (AUTOMATED) 2022-02-16 09:04:00 Vic Mcdonald [facility] POCT GLUCOSE (AUTOMATED) 2022-02-16 09:04:00 Vic Mcdonald Un [facility]ity [facility] POCT GLUCOSE (AUTOMATED) 2022-02-16 09:04:00 Vic Mcdonald Un [facility]ity [facility] BASIC METABOLIC PANEL 2022-02-16 06:13:00 [facility], [facility], CL, CO2, GLUCOSE, Medica l Branch BUN, CREATININE, CA) GLUTAMIC ACID 2022-02-16 06:13:00 Myrna Chen [facility] DECARBOXYLASE [facility] CBC WITHOUT DIFF 2022-02-16 06:13:00 [facility]-02-16 06:13[facility]00 [facility]22-02-16 06:13:00 April [facility] BASIC METABOLIC PANEL 2022-02-16 06:13:00 Myrna Chen [facility] (NA, K, CL, CO2, GLUCOSE, Medica l Branch BUN, CREATININE, CA) CBC WITHOUT DIFF 2022-02-16 06:13:00 [facility] 2022-02-16 06:13:00 [facility] DECARBOXY[facility]ASE AB [facility] MAGNESIUM 2022-02-16 06:13:00 April [facility] BASIC METABOLIC PANEL 2022-02-16 06:13:00 Myrna Chen [facility] (NA, K, CL, CO2, GLUCOSE, Medica l Branch BUN, CREATININE, CA) CBC WITHOUT DIFF 2022-02-16 06:13:00 April [facility] GLUTAMIC ACID 2022-02-16 06:13:00 April, Myrna [facility] POCT GLUCOSE (AUTOMATED) 2022-02-16 05:45:00 Vic Mcdonald [facility] POCT GLUCOSE (AUTOMATED) 2022-02-16 05:45:00 Vic Mcdonald [facility] POCT GLUCOSE (AUTOMATED) 2022-02-16 05:45:00 Vic Mcdonald [facility] POCT GLUCOSE (AUTOMATED) 2022-02-16 01:26:00 Vic Mcdonald [facility] POCT GLUCOSE (AUTOMATED) 2022-02-16 01:26:00 Vic Mcdonald [facility] POCT GLUCOSE (AUTOMATED) 2022-02-16 01:26:00 Vic Mcdonald [facility] POCT GLUCOSE (AUTOMATED) 2022-02-15 23:42:00 Vic Mcdonald [facility] POCT GLUCOSE (AUTOMATED) 2022-02-15 23:42:00 Vic Mcdonald [facility] POCT GLUCOSE (AUTOMATED) 2022-02-15 23:42:00 Vic Mcdonald [facility] BASIC METABOLIC PANEL 2022-02-15 22:51:00 Vic Mcdonald [facility] [place] (NA, K, CL, CO2, GLUCOSE, Medica l Branch BUN, CREATININE, CA) BASIC METABOLIC PANEL 2022-02-15 22:51:00 Vic Mcdonald [facility] [place] (NA, K, CL, CO2, GLUCOSE, Medica l Branch BUN, CREATININE, CA) BASIC METABOLIC PANEL 2022-02-15 22:51:00 Vic Mcdonald [facility] [place] (NA, K, CL, CO2, GLUCOSE, Medica l Branch BUN, CREATININE, CA) POCT GLUCOSE (AUTOMATED) 2022-02-15 22:37:00 Vic Mcdonald [facility] POCT GLUCOSE (AUTOMATED) 2022-02-15 22:37:00 Vic Mcdonald [facility] POCT GLUCOSE (AUTOMATED) 2022-02-15 22:37:00 Vic Mcdonald [facility] POCT GLUCOSE (AUTOMATED) 2022-02-15 21:30:00 Vic Mcdonald [facility] POCT GLUCOSE (AUTOMATED) 2022-02-15 21:30:00 Vic Mcdonald [facility] POCT GLUCOSE (AUTOMATED) 2022-02-15 21:30:00 Vic Mcdonald [facility] POCT GLUCOSE (AUTOMATED) 2022-02-15 20:05:00 Vic Mcdonald [facility] POCT GLUCOSE (AUTOMATED) 2022-02-15 20:05:00 Vic Mcdonald [facility] POCT GLUCOSE (AUTOMATED) 2022-02-15 20:05:00 Vic Mcdonald [facility] HB ECG ROUTINE & RHYTHM 2022-02-15 19:59:13 Lacey Alaniz Jay [facility] HB ECG ROUTINE & RHYTHM 2022-02-15 19:59:13 Corbin Ahrob Jay [facility] HB ECG ROUTINE & RHYTHM 2022-02-15 19:59:13 Lacey Alaniz Jay [facility] POCT GLUCOSE (AUTOMATED) 2022-02-15 19:06:00 Vic Mcdonald [facility] POCT GLUCOSE (AUTOMATED) 2022-02-15 19:06:00 Vic Mcdonald [facility] POCT GLUCOSE (AUTOMATED) 2022-02-15 19:06:00 Vic Mcdonald [facility] BLOOD CULTURE SCREEN 2022-02-15 18:49:00 Nai Naranjo [facility] ity [facility] BLOOD CULTURE SCREEN 2022-02-15 18:49:00 Nai Naranjo [facility] ity [facility] BLOOD CULTURE SCREEN 2022-02-15 18:49:00 Nai Naranjo [facility] ity of [facility] BLOOD CULTURE SCREEN 2022-02-15 18:48:00 Nai Naranjo [facility] BLOOD CULTURE SCREEN 2022-02-15 18:48:00 Nai Naranjo [facility] BLOOD CULTURE SCREEN 2022-02-15 18:48:00 Nai Naranjo [facility] XR CHEST 1 VW 2022-02-15 18:34:00 Butt, [facility] XR CHEST 1 VW 2022-02-15 18:34:00 Butt, [facility] XR CHEST 1 VW 2022-02-15 18:34:00 [facility], [facility] BASIC METABOLIC PANEL 2022-02-15 17:49:00 Vic Mcdonald [facility] [place] (NA, K, CL, CO2, GLUCOSE, Medica l Branch BUN, CREATININE, CA) TROPONIN I 2022-02-15 17:49:00 [facility] TROPONIN I 2022-02-15 17:49:00 [facility] BASIC METABOLIC PANEL 2022-02-15 17:49:00 Vic Mcdonald [facility] [place] (NA, K, CL, CO2, GLUCOSE, Medica l Branch BUN, CREATININE, CA) TROPONIN I 2022-02-15 17:49:00 [facility] 2022-02-15 17:49:00 [facility] (NA, K, CL, CO2, GLUCOSE, Medica l Branch BUN, CREATININE, CA) POCT GLUCOSE (AUTOMATED) 2022-02-15 17:27:00 Fiorella Mcdonaldy B Un [facility]ity [facility] POCT GLUCOSE (AUTOMATED) 2022-02-15 17:27:00 Fiorella Mcdonaldy B [facility] POCT GLUCOSE (AUTOMATED) 2022-02-15 17:27:00 Fiorella Mcdonaldy B Un [facility]versity [facility] POCT GLUCOSE (AUTOMATED) 2022-02-15 15:53:00 Vic Mcdonald B [facility] POCT GLUCOSE (AUTOMATED) 2022-02-15 15:53:00 Vic Mcdonald [facility] [place] [facility] POCT GLUCOSE (AUTOMATED) 2022-02-15 15:53:00 Vic Mcdonald [facility] [place] [facility] BASIC METABOLIC PANEL 2022-02-15 15:32:00 Vic Mcdonald [facility] [place] (NA, K, CL, CO2, GLUCOSE, Medica l Branch BUN, CREATININE, CA) BASIC METABOLIC PANEL 2022-02-15 15:32:00 Vic Mcdonald [facility] [place] (NA, K, CL, CO2, GLUCOSE, Medica l Branch BUN, CREATININE, CA) BASIC METABOLIC PANEL 2022-02-15 15:32:00 Vic Mcdonald [facility] [place] (NA, K, CL, CO2, GLUCOSE, Medica l Branch BUN, CREATININE, CA) POCT GLUCOSE (AUTOMATED) 2022-02-15 14:56:00 Vic Mcdonald [facility] [place] [facility] POCT GLUCOSE (AUTOMATED) 2022-02-15 14:56:00 Vic Mcdonald [facility] [place] [facility] POCT GLUCOSE (AUTOMATED) 2022-02-15 14:56:00 Vic Mcdonald [facility] [place] [facility] POCT GLUCOSE (AUTOMATED) 2022-02-15 13:48:00 Vic Mcdonald [facility] [place] [facility] POCT GLUCOSE (AUTOMATED) 2022-02-15 13:48:00 Vic Mcdonald [facility] [place] [facility] POCT GLUCOSE (AUTOMATED) 2022-02-15 13:48:00 Vic Mcdonald [facility] [place] [facility] POCT GLUCOSE (AUTOMATED) 2022-02-15 10:42:00 Vic Mcdonald [facility] [place] [facility] POCT GLUCOSE (AUTOMATED) 2022-02-15 10:42:00 Vic Mcdonald [facility] [place] [facility] POCT GLUCOSE (AUTOMATED) 2022-02-15 10:42:00 Vic Mcdonald [facility] [place] [facility] BASIC METABOLIC PANEL 2022-02-15 10:14:00 Jose A [facility] (NA, K, CL, CO2, GLUCOSE, Medica l Branch BUN, CREATININE, CA) MAGNESIUM 2022-02-15 10:14:00 Jose A [facility] MAGNESIUM 2022-02-15 10:14:00 [facility] BASIC METABOLIC PANEL 2022-02-15 10:14:00 Naranjo, [facility] (NA, K, CL, CO2, GLUCOSE, Medica l Branch BUN, CREATININE, CA) MAGNESIUM 2022-02-15 [facility]:14[facility] 2022-02-15 10:14:00 Naranjo, [facility] (NA, K, CL, CO2, GLUCOSE, Medica l Branch BUN, CREATININE, CA) POCT GLUCOSE (AUTOMATED) 2022-02-15 09:30:00 [facility] ([facility]OMATED) 2022-02-15 09:30:00 [facility]SE (AUTOMATED) 2022-02-15 09:30:00 [facility]SE (AUTOMATED) 2022-02-15 07:11:00 [facility]SE (AUTOMATED) 2022-02-15 07:11:00 [facility] PO[facility]SE (AUTOMATED) 2022-02-15 07:11:00 [facility] OSMOLALITY, SERUM OR 2022-02-15 07:07:[address] [facility] BETA HYDROXY-BUTYRATE 2022-02-15 07:07:00 [facility]SMOL[facility], SERUM OR 2022-02-15 07:07:[address] [facility] BETA HYDROXY-BUTYRATE 2022-02-15 07:07:00 [facility] OSMOLALITY, SERUM OR 2022-02-15 07:07:00 Vic Mcdonald Univer sity [facility] PLASMA [facility] BETA HYDROXY-BUTYRATE 2022-02-15 07:07:00 [facility]IC MET[facility]OLIC PANEL 2022-02-15 07:06:00 [facility] (NA, K, CL, CO2, GLUCOSE, Medica l Branch BUN, CREATININE, CA) BASIC METABOLIC PANEL 2022-02-15 07:06:00 Vic Mcdonald B [facility] (NA, K, CL, CO2, GLUCOSE, Medica l Branch BUN, CREATININE, CA) BASIC METABOLIC PANEL 2022-02-15 07:06:00 Vic Mcdonald Unive [facility] (NA, K, CL, CO2, GLUCOSE, Medica l Branch BUN, CREATININE, CA) CT ABDOMEN PELVIS W 2022-02-15 05:28:46 [facility] CT ABDOMEN PELVIS W 2022-02-15 05:28:46 Vic Mcdonald Univers ity [facility] CONTRAST [facility] CT ABDOMEN PELVIS W 2022-02-15 05:28:46 Vic Mcdonald Univers [facility] CONTRAST [facility] POCT GLUCOSE(AGE >30DAYS) 2022-02-15 05:11:00 [facility](AGE >30DAYS) 2022-02-15 05:11:00 [facility]SE(AGE >30DAYS) 2022-02-15 05:11:00 [facility] PO[facility]SE (AUTOMATED) 2022-02-15 05:08:00 [facility] PO[facility]SE (AUTOMATED) 2022-02-15 05:08:00 [facility] PO[facility]SE (AUTOMATED) 2022-02-15 05:08:00 [facility]EN 2022-02-15 04:31:00 [facility]cd[facility] BLOOD CULTURE WORKUP 2022-02-15 04:31:00 Vic Mcdonald [facility] GRAM POSITIVE BLOOD 2022-02-15 04:31:00 Vic Mcdonald [facility] PATHOGENS DNA [facility] PROBE-AEROBIC BLOOD CULTURE SCREEN 2022-02-15 04:31:00 Vic Mcdonald [facility] BLOOD CULTURE WORKUP 2022-02-15 04:31:00 Vic Mcdonald [facility] GRAM POSITIVE BLOOD 2022-02-15 04:31:00 Vic Mcdonald [facility] PATHOGENS [facility] PROBE-AEROBIC BLOOD CULTURE SCREEN 2022-02-15 04:31:00 Vic Mcdonald [facility] BLOOD CULTURE WORKUP 2022-02-15 04:31:00 Vic Mcdonald [facility] GRAM POSITIVE BLOOD 2022-02-15 04:31:00 Vic Mcdonald [facility] PATHOGENS [facility] PROBE-AEROBIC URINALYSIS 2022-02-15 04:21:00 Vic Mcdonald [facility] URINE CULTURE 2022-02-15 04:21:00 Vic Mcdonald [facility] URINALYSIS 2022-02-15 04:21:00 Vic Mcdonald [facility] URINE CULTURE 2022-02-15 04:21:00 Vic Mcdonald [facility] URINALYSIS 2022-02-15 04:21:00 Vic Mcdonald [facility] URINE CULTURE 2022-02-15 04:21:00 Vic Mcdonald [facility] COVID-19 (ID NOW RAPID 2022-02-15 04:20:00 [facility] 2022-02-15 04:20:00 Vic Mcdonald [facility] COVID-19 (ID NOW RAPID 2022-02-15 04:20:00 Harry Vic [facility] TESTING) Medical Branch LAB ONLY COVID 2022-02-15 04:20:00 Vic Mcdonald [facility] COVID-19 (ID NOW RAPID 2022-02-15 04:20:00 Harry [facility] TESTING) Medical Branch LAB ONLY COVID 2022-02-15 04:20:00 Vic Mcdonald [facility] CBC WITH DIFF 2022-02-15 04:18:00 Vic Mcdonald [facility] PROTHROMBIN TIME / INR 2022-02-15 04:18:00 Harry [facility] BASIC METABOLIC PANEL 2022-02-15 04:18:00 Vic Mcdonald [facility] (NA, K, CL, CO2, GLUCOSE, Medica l Branch BUN, CREATININE, CA) HEPATIC FUNCTION PANEL 2022-02-15 04:18:00 Vic Mcdonald [facility] ([id number]) (ALB,T.PRO,BILI [facility] T,BU/BC,ALT,AST,ALK PHOS) LIPASE 2022-02-15 04:18:00 Vic Mcdonald [facility] ACUTE CARE VENOUS BLOOD 2022-02-15 04:18:00 Vic Mcdonald [facility] GAS [facility] LACTIC ACID WHOLE BLOOD 2022-02-15 04:18:00 Vic Mcdonald [facility] MAGNESIUM 2022-02-15 04:18:00 Vic Mcdonald [facility] PHOSPHORUS 2022-02-15 04:18:00 Vic Mcdonald [facility] GLYCOSYLATED HEMOGLOBIN 2022-02-15 04:18:00 Vic Mcdonald [facility] (A1C) [facility] PHOSPHORUS 2022-02-15 04:18:00 Vic Mcdonald [facility] LIPASE 2022-02-15 04:18:00 Vic Mcdonald [facility] MAGNESIUM 2022-02-15 04:18:00 Vic Mcdonald [facility] HEPATIC FUNCTION PANEL 2022-02-15 04:18:00 Vic Mcdonald [facility] ([id number]) (ALB,T.PRO,BILI Medical Branch T,BU/BC,ALT,AST,ALK PHOS) BASIC METABOLIC PANEL 2022-02-15 04:18:00 Vic Mcdonald [facility] (NA, K, CL, CO2, GLUCOSE, Medica l Branch BUN, CREATININE, CA) ACUTE CARE VENOUS BLOOD 2022-02-15 04:18:00 Vic Mcdonald [facility] CBC WITH DIFF 2022-02-15 04:18:00 Vic Mcdonald [facility] GLYCOSYLATED HEMOGLOBIN 2022-02-15 04:18:00 Vic Mcdonald [facility] (A1C) [facility] PROTHROMBIN TIME / INR 2022-02-15 04:18:00 Vic Mcdonald [facility] LACTIC ACID WHOLE BLOOD 2022-02-15 04:18:00 Vic Mcdonald [facility] PHOSPHORUS 2022-02-15 04:18:00 Vic Mcdonald [facility] LIPASE 2022-02-15 04:18:00 Vic Mcdonald [facility] MAGNESIUM 2022-02-15 04:18:00 Vic Mcdonald [facility] HEPATIC FUNCTION PANEL 2022-02-15 04:18:00 Vic Mcdonald [facility] ([id number]) (ALB,T.PRO,[facility] T,BU/BC,ALT,AST,ALK PHOS) BASIC METABOLIC PANEL 2022-02-15 04:18:00 Vic Mcdonald [facility] (NA, K, CL, CO2, GLUCOSE, Medica l Branch BUN, CREATININE, CA) ACUTE CARE VENOUS BLOOD 2022-02-15 04:18:00 Vic Mcdonald [facility] CBC WITH DIFF 2022-02-15 04:18:00 Vic Mcdonald [facility] GLYCOSYLATED HEMOGLOBIN 2022-02-15 04:18:00 Vic Mcdonald [facility] [place] (A1C) [facility] PROTHROMBIN TIME / INR 2022-02-15 04:18:00 Vic Mcdonald [facility] LACTIC ACID WHOLE BLOOD 2022-02-15 04:18:00 Vic Mcdonald [facility] EMERGENCY DEPARTMENT 2022-02-14 05:01:00 Doctor Unassigned, No [facility] [place] [facility] HOSPITAL ADMISSION 2022-02-14 05:01:00 Doctor Unassigned, No [facility] EMERGENCY DEPARTMENT 2022-02-14 05:01:00 Doctor Unassigned, No [facility] [place] [facility] HOSPITAL ADMISSION 2022-02-14 05:01:00 Doctor Unassigned, No [facility] EMERGENCY DEPARTMENT 2022-02-14 05:01:00 Doctor Unassigned, No [facility] HOSPITAL ADMISSION 2022-02-14 05:01:00 Doctor Unassigned, No [facility] POCT GLUCOSE (AUTOMATED) 2022-02-10 19:34:00 Kaylee Argueta [facility] POCT GLUCOSE (AUTOMATED) 2022-02-10 19:34:00 Kaylee Argueta [facility] POCT GLUCOSE (AUTOMATED) 2022-02-10 16:39:00 Kaylee Argueta [facility] POCT GLUCOSE (AUTOMATED) 2022-02-10 16:39:00 Kaylee Argueta [facility] BASIC METABOLIC PANEL 2022-02-10 09:13:00 Kendall Connolly [facility] (NA, K, CL, CO2, GLUCOSE, Medica l Branch BUN, CREATININE, CA) BASIC METABOLIC PANEL 2022-02-10 09:13:00 Kendall Connolly [facility] (NA, K, CL, CO2, GLUCOSE, Medica l Branch BUN, CREATININE, CA) POCT GLUCOSE (AUTOMATED) 2022-02-10 01:45:00 Kaylee Argueta [facility] POCT GLUCOSE (AUTOMATED) 2022-02-10 01:45:00 Kosta Farzadlizet [facility] POCT GLUCOSE (AUTOMATED) 2022-02-09 21:36:00 Kosta Farzadlizet [facility] POCT GLUCOSE (AUTOMATED) 2022-02-09 21:36:00 Kosta Farzadlizet Uni versity [facility] POCT GLUCOSE (AUTOMATED) 2022-02-09 16:45:00 Kosta Farzadlizet Uni versity [facility] POCT GLUCOSE (AUTOMATED) 2022-02-09 16:45:00 Kaylee Argueta Lauren versity [facility] PHOSPHORUS 2022-02-09 13:17:00 Cathleen [facility] MAGNESIUM 2022-02-09 13:17:00 Cathleen [facility] BASIC METABOLIC PANEL 2022-02-09 13:17:00 Cathleen [facility] (NA, K, CL, CO2, GLUCOSE, Medica l Branch BUN, CREATININE, CA) BASIC METABOLIC PANEL 2022-02-09 13:17:00 Cathleen [facility] (NA, K, CL, CO2, GLUCOSE, Medica l Branch BUN, CREATININE, CA) MAGNESIUM 2022-02-09 13:17:00 Cathleen [facility] PHOSPHORUS 2022-02-09 13:17:00 Cathleen [facility] POCT GLUCOSE (AUTOMATED) 2022-02-09 12:42:00 Kosta Farzadlizet Uni versity [facility] POCT GLUCOSE (AUTOMATED) 2022-02-09 12:42:00 Kosta Farzadlizet Uni versity [facility] POCT GLUCOSE (AUTOMATED) 2022-02-09 01:08:00 Kosta Farzadlizet Uni versity [facility] POCT GLUCOSE (AUTOMATED) 2022-02-09 01:08:00 [facility]-02-08 22:52:00 Cathleen [facility] URINE CULTURE 2022-02-08 22:52:00 Cathleen [facility] URINALYSIS 2022-02-08 22:52:00 Cathleen [facility] URINE CULTURE 2022-02-08 22:52:00 Cathleen [facility] POCT GLUCOSE (AUTOMATED) 2022-02-08 21:40:00 [facility]) 2022-02-08 21:40:00 EdionweKaylee Uni versity [facility] POCT GLUCOSE (AUTOMATED) 2022-02-08 16:02:00 EdionweKaylee [facility] versity [facility] POCT GLUCOSE (AUTOMATED) 2022-02-08 16:02:00 [facility]ATED) 2022-02-08 13:08:00 [facility] (AUTOMATED) 2022-02-08 13:08:00 [facility]lee [facility] (AUTOMATED) 2022-02-08 10:58:00 [facility] (AUTOMATED) 2022-02-08 10:58:00 KostaKaylee [employer] [facility] LACTIC ACID WHOLE BLOOD 2022-02-08 09:47:00 Severino Beth [facility] LACTIC ACID WHOLE BLOOD 2022-02-08 09:47:00 Severino Beth [facility] PHOSPHORUS 2022-02-08 09:46:00 Severino Beth [facility] MAGNESIUM 2022-02-08 09:46:00 Severino Beth [facility] COMP. METABOLIC PANEL 2022-02-08 09:46:00 Severino Beth [facility] ([id number] CBC WITH DIFF 2022-02-08 09:46:00 Severino Beth [facility] CBC WITH DIFF 2022-02-08 09:46:00 Severino Beth [facility] COMP. METABOLIC PANEL 2022-02-08 09:46:00 Severino Beth [facility] ([id number]) Medical Branch MAGNESIUM 2022-02-08 09:46:00 Severino Beth [facility] PHOSPHORUS 2022-02-08 09:46:00 Severino Beth [facility] POCT GLUCOSE (AUTOMATED) 2022-02-08 07:47:00 Kosta Farzadlizet [employer] [facility] POCT GLUCOSE (AUTOMATED) 2022-02-08 07:47:00 Kosta Kaylee [employer] [facility] POCT GLUCOSE (AUTOMATED) 2022-02-08 03:40:00 Kosta Kaylee [employer] [facility] POCT GLUCOSE (AUTOMATED) 2022-02-08 03:40:00 Kosta Kaylee [employer] [facility] POCT GLUCOSE (AUTOMATED) 2022-02-08 00:43:00 Kosta Kaylee [employer] [facility] POCT GLUCOSE (AUTOMATED) 2022-02-08 00:43:00 Kosta Farzadlizet [employer] [facility] BASIC METABOLIC PANEL 2022-02-07 23:29:00 Severino Beth [facility] (NA, K, CL, CO2, GLUCOSE, Medica l Branch BUN, CREATININE, CA) BASIC METABOLIC PANEL 2022-02-07 23:29:00 Severino Beth [facility] (NA, K, CL, CO2, GLUCOSE, Medica l Branch BUN, CREATININE, CA) POCT GLUCOSE (AUTOMATED) 2022-02-07 22:28:00 Kosta Farzadlizet [employer] [facility] POCT GLUCOSE (AUTOMATED) 2022-02-07 22:28:00 Kosta Farzadlizet [employer] [facility] US RETROPERITONEAL 2022-02-07 22:27:00 Severino Beth [facility] US RETROPERITONEAL 2022-02-07 22:27:00 Severino Beth [facility] CT ABDOMEN PELVIS WO 2022-02-07 20:05:00 Severino Beth [facility] CONTRAST [facility] CT ABDOMEN PELVIS WO 2022-02-07 20:05:00 Severino Beth [facility] POCT GLUCOSE (AUTOMATED) 2022-02-07 19:07:00 KostaKaylee [employer] [facility] POCT GLUCOSE (AUTOMATED) 2022-02-07 19:07:00 KostaKaylee [employer] [facility] POCT GLUCOSE (AUTOMATED) 2022-02-07 18:00:00 KostaKaylee [employer] [facility] POCT GLUCOSE (AUTOMATED) 2022-02-07 18:00:00 Kosta Kaylee [employer] [facility] PROTEIN CREAT RATIO URINE 2022-02-07 17:45:00 Augusta Hendricks [facility] RANDOM [facility] PROTEIN CREAT RATIO URINE 2022-02-07 17:45:[address] [facility] POCT GLUCOSE (AUTOMATED) 2022-02-07 17:25:00 Kosta Kaylee [employer] [facility] POCT GLUCOSE (AUTOMATED) 2022-02-07 17:25:00 Kosta Kaylee [employer] [facility] LACTIC ACID WHOLE BLOOD 2022-02-07 17:23:00 Severino Beth [facility] LACTIC ACID WHOLE BLOOD 2022-02-07 17:23:00 Severino Beth [facility] BASIC METABOLIC PANEL 2022-02-07 17:22:00 Severino Beth [facility] (NA, K, CL, CO2, GLUCOSE, Medica l Branch BUN, CREATININE, CA) BASIC METABOLIC PANEL 2022-02-07 17:22:00 Severino Beth [facility] (NA, K, CL, CO2, GLUCOSE, Medica l Branch BUN, CREATININE, CA) POCT GLUCOSE (AUTOMATED) 2022-02-07 16:07:00 Kosta Kaylee [employer] [facility] POCT GLUCOSE (AUTOMATED) 2022-02-07 16:07:00 KostaKaylee [employer] [facility] POCT GLUCOSE (AUTOMATED) 2022-02-07 15:04:00 Kosta Kaylee [employer] [facility] POCT GLUCOSE (AUTOMATED) 2022-02-07 15:04:00 KostaKaylee [employer] [facility] POCT GLUCOSE (AUTOMATED) 2022-02-07 13:57:00 EdkeriKaylee [facility] POCT GLUCOSE (AUTOMATED) 2022-02-07 13:57:00 Kosta Kaylee [facility] URINE CULTURE 2022-02-07 13:50:00 [facility] URINE CULTURE 2022-02-07 13:50:00 [facility] LACTIC ACID WHOLE BLOOD 2022-02-07 12:57:00 Edkeri [facility] LACTIC ACID WHOLE BLOOD 2022-02-07 12:57:00 Kosta [facility] POCT GLUCOSE (AUTOMATED) 2022-02-07 12:55:00 Kosta Kaylee [facility] hospital POCT GLUCOSE (AUTOMATED) 2022-02-07 12:55:00 Edkeri Kaylee [facility] BASIC METABOLIC PANEL 2022-02-07 12:51:00 Edioncourt [facility] (NA, K, CL, CO2, GLUCOSE, Medica l Branch BUN, CREATININE, CA) BASIC METABOLIC PANEL 2022-02-07 12:51:00 [facility] (NA, K, CL, CO2, GLUCOSE, Medica l Branch BUN, CREATININE, CA) MRSA / MSSA SCREEN BY 2022-02-07 10:37:00 Edkeri [facility] MRSA / MSSA SCREEN BY 2022-02-07 10:37:00 Edkeri, [facility] PCR, [facility] URINE DRUG (IMMUNOASSAY) 2022-02-07 10:36:00 Kosta Farzadlizet [employer] [facility] DRUG Medical [facility] SCREEN LACTIC ACID WHOLE BLOOD 2022-02-07 10:36:00 Kosta [facility] URINE DRUG (LCMSMS) - 2022-02-07 10:36:00 Kosta [facility] SYNTHETIC OPIATES PANEL [facility] LACTIC ACID WHOLE BLOOD 2022-02-07 10:36:00 Kosta [facility] URINE DRUG (IMMUNOASSAY) 2022-02-07 10:36:00 Kosta [facility] SCREEN URINE DRUG (LCMSMS) - 2022-02-07 10:36:00 Kosta [facility] OPIATES PANEL Medical Branch PHOSPHORUS 2022-02-07 08:58:00 Edkeri [facility] MAGNESIUM 2022-02-07 08:58:00 [facility] HYDROXY-BUTYRATE 2022-02-07 08:58:00 Carlene Alcantara [facility] BASIC METABOLIC PANEL 2022-02-07 08:58:00 [facility] (NA, K, CL, CO2, GLUCOSE, Medica l Branch BUN, CREATININE, CA) BETA HYDROXY-BUTYRATE 2022-02-07 08:58:00 Carlene Alcantara [facility] BASIC METABOLIC PANEL 2022-02-07 08:58:00 [facility] (NA, K, CL, CO2, GLUCOSE, Medica l Branch BUN, CREATININE, CA) MAGNESIUM 2022-02-07 08:58:00 Kosta [facility] PHOSPHORUS 2022-02-07 08:58:00 Kosta [facility] CBC WITH DIFF 2022-02-07 06:40:00 [facility]LOOD 2022-02-07 06:40:00 Kosta [facility] LACTIC ACID WHOLE BLOOD 2022-02-07 06:40:00 Kosta [facility] CBC WITH DIFF 2022-02-07 06:40:00 [facility] PO[facility]SE (AUTOMATED) 2022-02-07 05:14:00 Kosta [facility] POCT GLUCOSE (AUTOMATED) 2022-02-07 05:14:00 Kaylee Argueta [facility] acute hospital ED BLADDER 2022-02-07 04:35:[address] [facility] ED BLADDER 2022-02-07 04:35:[address] [facility] POCT GLUCOSE (AUTOMATED) 2022-02-07 03:51:00 Kaylee Argueta [facility] acute hospital POCT GLUCOSE (AUTOMATED) 2022-02-07 03:51:00 Kaylee Argueta [facility] acute hospital XR CHEST 1 VW 2022-02-07 02:43:07 Carlene Alcantara [facility] XR ANKLE 3+ VW LEFT 2022-02-07 02:43:07 Carlene Alcantara [facility] XR CHEST 1 VW 2022-02-07 02:43:07 Carlene Alcantara [facility] XR ANKLE 3+ VW LEFT 2022-02-07 02:43:07 Carlene Alcantara [facility] LACTIC ACID WHOLE BLOOD 2022-02-07 02:30:00 Carlene Alcantara [facility] LACTIC ACID WHOLE BLOOD 2022-02-07 02:30:00 Carlene Alcantara [facility] URINALYSIS 2022-02-07 01:38:00 Carlene lAcantara [facility] URINALYSIS 2022-02-07 01:38:00 Carlene Alcantara [facility] POCT GLUCOSE (AUTOMATED) 2022-02-07 01:36:00 Carlene Alcantara [facility] acute hospital POCT GLUCOSE (AUTOMATED) 2022-02-07 01:36:00 Carlene Alcantara [facility] acute hospital PHOSPHORUS 2022-02-07 01:24:00 Carlene Alcantara [facility] LIPASE 2022-02-07 01:24:00 Carlene Alcantara [facility] MAGNESIUM 2022-02-07 01:24:00 Carlene Alcantara [facility] TROPONIN I 2022-02-07 01:24:00 Carlene Alcantara [facility] COMP. METABOLIC PANEL 2022-02-07 01:24:00 Carlene Alcantara [facility] ([id number]) [facility] SALICYLATE 2022-02-07 01:24:00 Carlene Alcantara [facility] ETHANOL 2022-02-07 01:24:00 Carlene Alcantara [facility] COMP. METABOLIC PANEL 2022-02-07 01:24:00 Carlene Alcantara [facility] ([id number]) [facility] LIPASE 2022-02-07 01:24:00 Carlene Alcantara [facility] TROPONIN I 2022-02-07 01:24:00 Carlene Alcantara [facility] ETHANOL 2022-02-07 01:24:00 Carlene Alcantara [facility] ACETAMINOPHEN 2022-02-07 01:24:00 Carlene Alcantara [facility] PHOSPHORUS 2022-02-07 01:24:00 Carlene Alcantara [facility] MAGNESIUM 2022-02-07 01:24:00 Carlene Alcantara [facility] CT LUMBAR SPINE WO 2022-02-07 01:16:52 Carlene Alcantara [facility] CONTRAST [facility] CT THORACIC SPINE WO 2022-02-07 01:16:52 Carlene Alcantara [facility] CONTRAST [facility] CT THORACIC SPINE WO 2022-02-07 01:16:52 Carlene Alcantara [facility] CONTRAST [facility] CT LUMBAR SPINE WO 2022-02-07 01:16:52 Carlene Alcantara [facility] CONTRAST [facility] CT CERVICAL SPINE WO 2022-02-07 01:16:24 Carlene Alcantara [facility] CONTRAST [facility] CT HEAD WO CONTRAST 2022-02-07 01:16:24 Carlene Alcantara [facility] CT HEAD WO CONTRAST 2022-02-07 01:16:24 Carlene Alcantara [facility] CT CERVICAL SPINE WO 2022-02-07 01:16:24 Carlene Alcantara [facility] CONTRAST [facility] BLOOD CULTURE SCREEN 2022-02-07 00:41:00 Carlene Alcantara [facility] BLOOD CULTURE SCREEN 2022-02-07 00:41:00 Carlene Alcantara [facility] COVID-19 (ID NOW RAPID 2022-02-07 00:30:00 Carlene Alcantara [facility] TESTING) Medical Branch LAB ONLY COVID 2022-02-07 00:30:00 Carlene Alcantara [facility] COVID-19 (ID NOW RAPID 2022-02-07 00:30:00 Carlene Alcantara [facility] TESTING) Medical Branch LAB ONLY COVID 2022-02-07 00:30:00 Carlene Alcantara [facility] POCT GLUCOSE (AUTOMATED) 2022-02-07 00:05:00 Carlene Alcantara [facility] POCT GLUCOSE (AUTOMATED) 2022-02-07 00:05:00 Carlene Alcantara [facility] acute hospital ACUTE CARE VENOUS BLOOD 2022-02-06 23:53:00 Carlene Alcantara [facility] ACUTE CARE VENOUS BLOOD 2022-02-06 23:53:00 Carlene Alcantara [facility] CBC WITH DIFF 2022-02-06 23:48:00 Carlene Alcantara [facility] CBC WITH DIFF 2022-02-06 23:48:00 Carlene Alcantara [facility] LACTIC ACID WHOLE BLOOD 2022-02-06 23:47:00 Carlene Alcantara [facility] LACTIC ACID WHOLE BLOOD 2022-02-06 23:47:00 Carlene Alcantara [facility] HB ECG ROUTINE & RHYTHM 2022-02-06 23:31:40 Carlene Alcantara [facility] HB ECG ROUTINE & RHYTHM 2022-02-06 23:31:40 Carlene Alcantara [facility] EMERGENCY DEPARTMENT 2022-02-06 05:01:00 Doctor Unassigned, No U [facility] DOCUMENTS [facility] EMERGENCY DEPARTMENT 2022-02-06 05:01:00 Doctor Unassigned, No U [facility] HOSPITAL ADMISSION 2022-02-06 05:01:00 Doctor Unassigned, No [facility] 2022-01-27 02:34:07 [facility] 2022-01-27 02:34:07 [facility] PO[facility] GLU[facility]SE(AGE >30DAYS) 2022-01-27 01:30:00 [facility] PO[facility] GLU[facility]SE(AGE >30DAYS) 2022-01-27 01:30:00 [facility] ([facility]OMATED) 2022-01-27 01:28:00 Randall Sands [facility] POCT GLUCOSE (AUTOMATED) 2022-01-27 01:28:00 Randall Sands [facility] POCT GLUCOSE (AUTOMATED) 2022-01-27 00:38:00 Randall Sands [facility] POCT GLUCOSE (AUTOMATED) 2022-01-27 00:38:00 Randall Sands [facility] URINALYSIS 2022-01-26 23:58:[address] [facility] URINALYSIS 2022-01-26 23:58:00 Randall Sands [facility] POCT GLUCOSE (AUTOMATED) 2022-01-26 23:26:00 Randall Sands [facility] POCT GLUCOSE (AUTOMATED) 2022-01-26 23:26:00 Randall Sands [facility] BASIC METABOLIC PANEL 2022-01-26 22:24:00 Randall Sands [facility] (NA, K, CL, CO2, GLUCOSE, Medica l Branch BUN, CREATININE, CA) CBC WITH DIFF 2022-01-26 22:24:[address] [facility] COVID-19 (ID NOW RAPID 2022-01-26 22:24:00 Randall Sands [facility] TESTING) Medical Branch CBC WITH DIFF 2022-01-26 22:24:00 Randall Sands [facility] Medical Branch BASIC METABOLIC PANEL 2022-01-26 22:24:00 Randall Sands [facility] (NA, K, CL, CO2, GLUCOSE, Medica l Branch BUN, CREATININE, CA) COVID-19 (ID NOW RAPID 2022-01-26 22:24:00 Randall Sands [facility] TESTING) Medical Branch LAB ONLY COVID 2022-01-26 22:24:00 Shavon [facility] INTERPRETATION [facility] EMERGENCY SERVICES 2022-01-26 05:01:00 Doctor Unassigned, No Uni versity [facility] AGREEMENTS AND Name Medical Branch AUTHORIZATIONS EMERGENCY DEPARTMENT 2022-01-26 05:01:00 [facility]assigned, [facility] Name Medical Branch LIPASE 2022-01-17 10:37:00 Jennifer Olivera [facility] COMP. METABOLIC PANEL 2022-01-17 10:37:00 Jennifer Olivera [facility] ([id number]) [facility] CBC WITH DIFF 2022-01-17 10:37:00 Jarod Jennifer [facility] AC PANEL 21 + LACTIC ACID 2022-01-17 10:37:00 [facility]FF 2022-01-17 10:37:00 Jennifer Olivera [facility] COMP. METABOLIC PANEL 2022-01-17 10:37:00 Jennifer Olivera [facility] ([id number]) [facility] AC PANEL 21 + LACTIC ACID 2022-01-17 10:37:00 Jennifer Olivera [facility] LIPASE 2022-01-17 10:37:00 Jennifer Olivera [facility] URINALYSIS 2022-01-17 10:24:00 Jarod Jennifer [facility] URINALYSIS 2022-01-17 10:24:00 Jennifer Olivera [facility] EMERGENCY SERVICES 2022-01-17 05:01:00 Doctor Unassigned, No [facility] [place] AGREEMENTS AND Name Medical Branch AUTHORIZATIONS POCT [...] (AUTOMATED) 2022-01-11 02:43:00 Jennifer Olivera versity of [facility] POCT GLUCOSE (AUTOMATED) 2022-01-11 02:43:00 Jennifer Olivera versity of [facility] POCT GLUCOSE (AUTOMATED) 2022-01-10 22:37:00 Jennifer Olivera versity of [facility] POCT GLUCOSE (AUTOMATED) 2022-01-10 22:37:00 Jennifer Olivera versity of [facility] POCT GLUCOSE (AUTOMATED) 2022-01-10 18:04:00 Jennifer Olivera vers[facility] of [facility] POCT GLUCOSE (AUTOMATED) 2022-01-10 18:04:00 Jennifer Olivera [facility] BASIC METABOLIC PANEL 2022-01-10 14:22:00 [facility] (NA, K, CL, CO2, GLUCOSE, Medica l Branch BUN, CREATININE, CA) BASIC METABOLIC PANEL 2022-01-10 14:22:00 [facility] (NA, K, CL, CO2, GLUCOSE, Medica l Branch BUN, CREATININE, CA) POCT GLUCOSE (AUTOMATED) 2022-01-10 13:30:00 Jennifer Olivera [facility] POCT GLUCOSE (AUTOMATED) 2022-01-10 13:30:00 Jennifer Olivera [facility] CRITICAL CARE 2022-01-10 11:11:00 Jennifer Olivera [facility] CRITICAL CARE 2022-01-10 11:11:00 Jennifer Olivera [facility] POCT GLUCOSE (AUTOMATED) 2022-01-10 11:01:00 Jennifer Olivera versity of [facility] POCT GLUCOSE (AUTOMATED) 2022-01-10 11:01:00 [facility] POCT GLUCOSE (AUTOMATED) 2022-01-10 07:19:00 Jennifer Olivera versity [facility] POCT GLUCOSE (AUTOMATED) 2022-01-10 07:19:00 Jennifer Olivera [facility] BASIC METABOLIC PANEL 2022-01-10 05:53:00 Jennifer Olivera [facility] (NA, K, CL, CO2, GLUCOSE, Medica l Branch BUN, CREATININE, CA) BASIC METABOLIC PANEL 2022-01-10 05:53:00 Jennifer Olivera [facility] (NA, K, CL, CO2, GLUCOSE, Medica l Branch BUN, CREATININE, CA) POCT GLUCOSE (AUTOMATED) 2022-01-10 04:41:00 Jennifer Olivera [facility] POCT GLUCOSE (AUTOMATED) 2022-01-10 04:41:00 Jennifer Olivera [facility] URINALYSIS 2022-01-10 03:59:00 Jennifer Olivera [facility] URINE CULTURE 2022-01-10 03:59:00 Jennifer Olivera [facility] URINALYSIS 2022-01-10 03:59:00 Jennifer Olivera [facility] URINE CULTURE 2022-01-10 03:59:00 Jennifer Olivera [facility] POCT GLUCOSE (AUTOMATED) 2022-01-10 03:48:00 Jennifer Olivera [facility] POCT GLUCOSE (AUTOMATED) 2022-01-10 03:48:00 Jennifer Olivera [facility] AC PANEL 21 + LACTIC ACID 2022-01-10 02:23:00 Jennifer Olivera [facility] AC PANEL 21 + LACTIC ACID 2022-01-10 02:23:00 Jennifer Olivera [facility] LIPASE 2022-01-10 02:22:00 Jennifer Olivera [facility] COMP. METABOLIC PANEL 2022-01-10 02:22:00 Jennifer Olivera [facility] ([id number]) Medical Branch CBC WITH DIFF 2022-01-10 02:22:00 Jennifer Olivera [facility] COVID-19 (ID NOW RAPID 2022-01-10 02:22:00 Jennifer Olivera [facility] TESTING) Medical Branch LAB ONLY COVID 2022-01-10 02:22:00 Jennifer Olivera [facility] INTERPRETATION [facility] CBC WITH DIFF 2022-01-10 02:22:00 Jennifer Olivera [facility] COMP. METABOLIC PANEL 2022-01-10 02:22:00 Jennifer Olivera [facility] ([id number]) Medical Branch LIPASE 2022-01-10 02:22:00 Jennifer Olivera [facility] [place] [facility] COVID-19 (ID NOW RAPID 2022-01-10 02:22:00 Jennifer Olivera [facility] TESTING) Medical Branch LAB ONLY COVID 2022-01-10 02:22:00 Jennifer Olivera [facility] [place] INTERPRETATION Medical Branch HOSPITAL ADMISSION 2022-01-09 05:01:00 Doctor Unassigned, No Uni versity of [facility] EMERGENCY DEPARTMENT 2022-01-09 05:01:00 Doctor Unassigned, No [facility] [place] DOCUMENTS [facility] HOSPITAL ADMISSION 2022-01-09 05:01:00 Doctor Unassigned, No Uni versity of [facility] POCT GLUCOSE (AUTOMATED) 2022-01-06 17:03:00 Negar Guardado Uni versity [facility] POCT GLUCOSE (AUTOMATED) 2022-01-06 16:09:00 Negar Guardado Uni [facility] HEPATIC FUNCTION PANEL 2022-01-06 09:01:[address] [facility] ([id number]) (ALB,T.PRO,BILI Medical Branch T,BU/BC,ALT,AST,ALK PHOS) BASIC METABOLIC PANEL 2022-01-06 09:01:00 Carlene Weaver [facility] (NA, K, CL, CO2, GLUCOSE, Medica l Branch BUN, CREATININE, CA) CBC WITH DIFF 2022-01-06 09:01:00 Carlene Weaver [facility] CBC WITH DIFF 2022-01-06 09:01:00 Carlene Weaver [facility] BASIC METABOLIC PANEL 2022-01-06 09:01:00 Carlene Weaver [facility] (NA, K, CL, CO2, GLUCOSE, Medica l Branch BUN, CREATININE, CA) HEPATIC FUNCTION PANEL 2022-01-06 09:01:[address] [facility] ([id number]) (ALB,T.PRO,[facility] Branch T,BU/BC,ALT,AST,ALK PHOS) POCT GLUCOSE (AUTOMATED) 2022-01-06 08:58:00 Negar Guardado [facility] POCT GLUCOSE (AUTOMATED) 2022-01-06 06:53:00 Negar Guardado [facility] POCT GLUCOSE (AUTOMATED) 2022-01-06 05:31:00 Negar Guardado [facility] POCT GLUCOSE (AUTOMATED) 2022-01-06 02:16:00 Negar Guardado [facility] POCT GLUCOSE (AUTOMATED) 2022-01-05 21:50:00 Negar Guardado [facility] BASIC METABOLIC PANEL 2022-01-05 20:45:00 [facility] (NA, K, CL, CO2, GLUCOSE, Medica l Branch BUN, CREATININE, CA) CBC WITH DIFF 2022-01-05 20:45:00 [facility] BASIC METABOLIC PANEL 2022-01-05 20:45:00 [facility] (NA, K, CL, CO2, GLUCOSE, Medica l Branch BUN, CREATININE, CA) CBC WITH DIFF 2022-01-05 20:45:00 [facility] POCT GLUCOSE (AUTOMATED) 2022-01-05 16:44:00 Negar Guardado [facility] POCT GLUCOSE (AUTOMATED) 2022-01-05 13:41:00 Negar Guardado [facility] acute hospital URINE CULTURE 2022-01-05 06:41:00 Vadim Ferreira [facility] URINE CULTURE 2022-01-05 06:41:00 Vadim Ferreira [facility] POCT GLUCOSE (AUTOMATED) 2022-01-05 06:10:00 Vadim Ferreira [facility] CT ABDOMEN PELVIS W 2022-01-05 05:08:00 Vadim Ferreira [facility] CT ABDOMEN PELVIS W 2022-01-05 05:08:00 Vadim Ferreira [facility] URINALYSIS 2022-01-05 04:34:00 Vadim Ferreira [facility] COVID-19 (ID NOW RAPID 2022-01-05 04:34:00 Vadim Ferreira [facility] TESTING) Medical Branch LAB ONLY COVID 2022-01-05 04:34:00 Vadim Ferreira [facility] URINALYSIS 2022-01-05 04:34:00 Vadim Ferreira [facility] COVID-19 (ID NOW RAPID 2022-01-05 04:34:00 Vadim Ferreira [facility] TESTING) Medical Branch LAB ONLY COVID 2022-01-05 04:34:00 Vadim Ferreira [facility] INTERPRETATION [facility] LIPASE 2022-01-05 03:57:00 Vadim Ferreira [facility] COMP. METABOLIC PANEL 2022-01-05 03:57:00 Vadim Ferreira [facility] ([id number]) [facility] CBC WITH DIFF 2022-01-05 03:57:00 Vadim Ferreira [facility] CBC WITH DIFF 2022-01-05 03:57:00 Vadim Ferreira [facility] COMP. METABOLIC PANEL 2022-01-05 03:57:00 Vadim Ferreira [facility] ([id number]) Medical Branch LIPASE 2022-01-05 03:57:00 Vadim Ferreira [facility] EMERGENCY DEPARTMENT 2022-01-04 05:01:00 Doctor Unassigned, No [facility] [place] [facility] HOSPITAL ADMISSION 2022-01-04 05:01:00 Doctor Unassigned, No [facility] POCT GLUCOSE (AUTOMATED) 2021-12-22 21:48:00 Kaylee Argueta [facility] POCT GLUCOSE (AUTOMATED) 2021-12-22 17:03:00 Kaylee Argueta [facility] POCT GLUCOSE (AUTOMATED) 2021-12-22 17:03:00 EdKaylee saavedra [facility] POCT GLUCOSE (AUTOMATED) 2021-12-22 12:44:00 [facility] 2021-12-22 12:44:00 EdFarzad saavedray [facility] BASIC METABOLIC PANEL 2021-12-22 10:29:00 Negar Guardado [facility] (NA, K, CL, CO2, GLUCOSE, Medica l Branch BUN, CREATININE, CA) CBC WITH DIFF 2021-12-22 10:29:00 Geo [facility] MAGNESIUM 2021-12-22 10:29:00 Geo [facility] MAGNESIUM 2021-12-22 10:29:00 Geo [facility] BASIC METABOLIC PANEL 2021-12-22 10:29:00 Negar Guardado [facility] (NA, K, CL, CO2, GLUCOSE, Medica l Branch BUN, CREATININE, CA) CBC WITH DIFF 2021-12-22 10:29:00 Goe [facility] POCT GLUCOSE (AUTOMATED) 2021-12-22 10:28:00 Edionwe [facility] POCT GLUCOSE (AUTOMATED) 2021-12-22 10:28:00 Edionwe [facility] POCT GLUCOSE (AUTOMATED) 2021-12-22 05:33:00 Edionwe, [facility] [place] [facility] POCT GLUCOSE (AUTOMATED) 2021-12-22 05:33:00 Edionwe, [facility] POCT GLUCOSE (AUTOMATED) 2021-12-22 04:37:00 Edionwe, [facility] [place] [facility] POCT GLUCOSE (AUTOMATED) 2021-12-22 04:37:00 Edionwe, [facility] [place] [facility] POCT GLUCOSE (AUTOMATED) 2021-12-22 02:29:00 Edionwe, [facility] [place] [facility] POCT GLUCOSE (AUTOMATED) 2021-12-22 02:29:00 Edionwe, [facility] [place] [facility] POCT GLUCOSE (AUTOMATED) 2021-12-22 00:52:00 Edionwe, [facility] POCT GLUCOSE (AUTOMATED) 2021-12-22 00:52:00 Edionwe, [facility] POCT GLUCOSE (AUTOMATED) 2021-12-21 21:52:00 KostaKaylee [facility] POCT GLUCOSE (AUTOMATED) 2021-12-21 21:52:00 KostaKaylee [facility] POCT GLUCOSE (AUTOMATED) 2021-12-21 16:42:00 KostaKaylee [facility] POCT GLUCOSE (AUTOMATED) 2021-12-21 16:42:00 Kosta Farzadlizet Aguilar [facility] XR CHEST 1 VW 2021-12-21 14:05:00 Geo [facility] XR SKULL <4 VW 2021-12-21 14:05:00 Geo [facility] XR ABDOMEN 2 VW 2021-12-21 14:05:00 Geo [facility] XR ABDOMEN 2 VW 2021-12-21 14:05:00 Geo [facility] XR CHEST 1 VW 2021-12-21 14:05:00 Geo [facility] XR SKULL <4 VW 2021-12-21 14:05:00 Geo [facility] POCT GLUCOSE (AUTOMATED) 2021-12-21 12:47:00 KostaKaylee [facility] POCT GLUCOSE (AUTOMATED) 2021-12-21 12:47:00 Kosta Kaylee [facility] POCT GLUCOSE (AUTOMATED) 2021-12-21 08:59:00 Kosta Kaylee [facility] POCT GLUCOSE (AUTOMATED) 2021-12-21 08:59:00 [facility] GLYCOSYLATED HEMOGLOBIN 2021-12-21 08:56:00 Severino Beth [facility] (A1C) [facility] CBC WITH DIFF 2021-12-21 08:56:00 Severino Beth [facility] BASIC METABOLIC PANEL 2021-12-21 08:56:00 Severino Beth [facility] (NA, K, CL, CO2, GLUCOSE, Medica l Branch BUN, CREATININE, CA) MAGNESIUM 2021-12-21 08:56:00 Severino Beth [facility] PHOSPHORUS 2021-12-21 08:56:00 Kirit [facility] PHOSPHORUS 2021-12-21 08:56:00 Kirit [facility] MAGNESIUM 2021-12-21 08:56:00 Kirit [facility] BASIC METABOLIC PANEL 2021-12-21 08:56:00 Severino Beth [facility] (NA, K, CL, CO2, GLUCOSE, Medica l Branch BUN, CREATININE, CA) CBC WITH DIFF 2021-12-21 08:56:00 Kirit [facility] GLYCOSYLATED HEMOGLOBIN 2021-12-21 08:56:00 Severino Beth [facility] (A1C) [facility] POCT GLUCOSE (AUTOMATED) 2021-12-21 04:27:00 Kaylee Argueta [facility] POCT GLUCOSE (AUTOMATED) 2021-12-21 04:27:00 Kaylee Argueta [facility] POCT GLUCOSE (AUTOMATED) 2021-12-21 01:11:00 Edkeri, [facility] POCT GLUCOSE (AUTOMATED) 2021-12-21 01:11:00 Farzad Arguetay [facility] POCT GLUCOSE (AUTOMATED) 2021-12-20 21:02:00 Edkeri, [facility] POCT GLUCOSE (AUTOMATED) 2021-12-20 21:02:00 Kaylee Argueta [facility] POCT GLUCOSE (AUTOMATED) 2021-12-20 16:08:00 Edkeri, [facility] POCT GLUCOSE (AUTOMATED) 2021-12-20 16:08:00 Edkeri [facility] POCT GLUCOSE (AUTOMATED) 2021-12-20 12:39:00 Edkeri, [facility] POCT GLUCOSE (AUTOMATED) 2021-12-20 12:39:00 Kaylee rAgueta [facility] LACTIC ACID WHOLE BLOOD 2021-12-20 09:25:00 Mario Johnson [facility] CBC WITH DIFF 2021-12-20 09:25:00 Kosta [facility] BASIC METABOLIC PANEL 2021-12-20 09:25:00 Kosta [facility] (NA, K, CL, CO2, GLUCOSE, Medica l Branch BUN, CREATININE, CA) BASIC METABOLIC PANEL 2021-12-20 09:25:00 Kosta [facility] (NA, K, CL, CO2, GLUCOSE, Medica l Branch BUN, CREATININE, CA) CBC WITH DIFF 2021-12-20 09:25:00 Kosta [facility] LACTIC ACID WHOLE BLOOD 2021-12-20 09:25:00 Alex [facility] POCT GLUCOSE (AUTOMATED) 2021-12-20 08:56:00 [facility] PO[facility] GLUCOSE (AUTOMATED) 2021-12-20 08:56:00 [facility] POCT GLUCOSE (AUTOMATED) 2021-12-20 04:51:00 [facility] POCT GLUCOSE (AUTOMATED) 2021-12-20 04:51:00 [facility] URINALYSIS 2021-12-20 02:47:00 [facility] 2021-12-20 02:47:00 Mario Johnson [facility] POCT GLUCOSE (AUTOMATED) 2021-12-20 02:29:00 Mario Johnson [facility] POCT GLUCOSE (AUTOMATED) 2021-12-20 02:29:00 Mario Johnson [facility] HB ECG ROUTINE & RHYTHM 2021-12-20 00:33:38 Alex [facility] HB ECG ROUTINE & RHYTHM 2021-12-20 00:33:38 Alex [facility] URINALYSIS 2021-12-20 00:28:00 Alex [facility] URINE CULTURE 2021-12-20 00:28:00 Alex [facility] URINALYSIS 2021-12-20 00:28:00 Alex [facility] URINE CULTURE 2021-12-20 00:28:00 Alex [facility] CBC WITH DIFF 2021-12-20 00:25:00 Alex [facility] COMP. METABOLIC PANEL 2021-12-20 00:25:00 Alex [facility] ([id number]) Medical Branch LIPASE 2021-12-20 00:25:00 Alex [facility] LACTIC ACID WHOLE BLOOD 2021-12-20 00:25:00 Alex [facility] ACUTE CARE VENOUS BLOOD 2021-12-20 00:25:00 Alex [facility] BLOOD CULTURE SCREEN 2021-12-20 00:25:00 Alex [facility] BLOOD CULTURE SCREEN 2021-12-20 00:25:00 [facility] 2021-12-20 00:25:00 Alex [facility] COMP. METABOLIC PANEL 2021-12-20 00:25:00 Alex [facility] ([id number]) [facility] ACUTE CARE VENOUS BLOOD 2021-12-20 00:25:00 Alex [facility] CBC WITH DIFF 2021-12-20 00:25:00 Alex [facility] LACTIC ACID WHOLE BLOOD 2021-12-20 00:25:00 Alex [facility] EMERGENCY DEPARTMENT 2021-12-19 05:01:00 Doctor Unassigned, No [facility] [place] DOCUMENTS [facility] HOSPITAL ADMISSION 2021-12-19 05:01:00 Doctor Unassigned, No [facility] CBC WITH DIFF 2021-12-18 17:57:00 Mayank [facility] BASIC METABOLIC PANEL 2021-12-18 17:57:00 Mayank [facility] (NA, K, CL, CO2, GLUCOSE, Medica l Branch BUN, CREATININE, CA) MAGNESIUM 2021-12-18 17:57:00 [facility] MAG[facility]IUM 2021-12-18 17:57:00 [facility] BASIC METABOLIC PANEL 2021-12-18 17:57:00 [facility] (NA, K, CL, CO2, GLUCOSE, Medica l Branch BUN, CREATININE, CA) CBC WITH DIFF 2021-12-18 17:57:00 [facility] POCT GLUCOSE (AUTOMATED) 2021-12-18 16:49:00 Terminella, Thomas [facility] POCT GLUCOSE (AUTOMATED) 2021-12-18 16:49:00 Terminella, Thomas [facility] POCT GLUCOSE (AUTOMATED) 2021-12-18 12:56:00 Terminella, Thomas [facility] POCT GLUCOSE (AUTOMATED) 2021-12-18 12:56:00 Terminella, Thomas [facility] POCT GLUCOSE (AUTOMATED) 2021-12-18 09:41:00 Terminella, Thoams [facility] POCT GLUCOSE (AUTOMATED) 2021-12-18 09:41:00 Terminella, Thomas [facility] POCT GLUCOSE (AUTOMATED) 2021-12-18 05:08:00 Terminella, Thomas [facility] POCT GLUCOSE (AUTOMATED) 2021-12-18 05:08:00 Terminella, Thomas [facility] POCT GLUCOSE (AUTOMATED) 2021-12-18 01:26:00 Terminella, Thomas [facility] POCT GLUCOSE (AUTOMATED) 2021-12-18 01:26:00 Terminella, Thomas [facility] POCT GLUCOSE (AUTOMATED) 2021-12-17 21:41:00 Terminella, Thomas [facility] POCT GLUCOSE (AUTOMATED) 2021-12-17 21:41:00 Terminella, Thomas [facility] POCT GLUCOSE (AUTOMATED) 2021-12-17 17:07:00 Terminella, Thomas [facility] POCT GLUCOSE (AUTOMATED) 2021-12-17 17:07:00 Terminella, Thomas [facility] POCT GLUCOSE (AUTOMATED) 2021-12-17 14:01:00 Terminella, Thomas [facility] POCT GLUCOSE (AUTOMATED) 2021-12-17 14:01:00 Terminella, Thomas [facility] POCT GLUCOSE (AUTOMATED) 2021-12-17 09:18:00 Terminella, Thomas [facility] POCT GLUCOSE (AUTOMATED) 2021-12-17 09:18:00 Terminella, Thomas [facility] POCT GLUCOSE (AUTOMATED) 2021-12-17 01:43:00 Terminella, Thomas [facility] POCT GLUCOSE (AUTOMATED) 2021-12-17 01:43:00 Terminella, Thomas [facility] POCT GLUCOSE (AUTOMATED) 2021-12-16 21:24:00 AlbVito cuenca [facility] POCT GLUCOSE (AUTOMATED) 2021-12-16 21:24:00 Albbessyami Vito [facility] POCT GLUCOSE (AUTOMATED) 2021-12-16 16:25:00 AlbVito cuenca [facility] POCT GLUCOSE (AUTOMATED) 2021-12-16 16:25:00 AlbVito cuenca [facility] URINALYSIS 2021-12-16 15:46:00 TalleyHunter lynnal [facility] URINE CULTURE 2021-12-16 15:46:00 Talley, Jolynn [facility] URINALYSIS 2021-12-16 15:46:00 Talley [facility] [facility] URINE CULTURE 2021-12-16 15:46:00 Talley, [employer] [facility] POCT GLUCOSE (AUTOMATED) 2021-12-16 15:36:00 AlbVito cuenca [facility] POCT GLUCOSE (AUTOMATED) 2021-12-16 15:36:00 Vito Mckeon [facility] POCT GLUCOSE (AUTOMATED) 2021-12-16 14:25:00 AlbVito cuenca [facility] POCT GLUCOSE (AUTOMATED) 2021-12-16 14:25:00 Vito Mckeon [facility] BASIC METABOLIC PANEL 2021-12-16 13:45:00 Vito Mckeon [facility] (NA, K, CL, CO2, GLUCOSE, Medica l Branch BUN, CREATININE, CA) BASIC METABOLIC PANEL 2021-12-16 13:45:00 Vito Mckeon [facility] (NA, K, CL, CO2, GLUCOSE, Medica l Branch BUN, CREATININE, CA) POCT GLUCOSE (AUTOMATED) 2021-12-16 13:34:00 Vito Mckeon [facility] POCT GLUCOSE (AUTOMATED) 2021-12-16 13:34:00 [facility] 2021-12-16 13:05:05 [facility] CR[facility]ICAL CARE 2021-12-16 13:05:05 [facility] POCT GLUCOSE (AUTOMATED) 2021-12-16 12:23:00 Vito Mckeon [facility] POCT GLUCOSE (AUTOMATED) 2021-12-16 12:23:00 Vito Mckeon [facility] POCT GLUCOSE (AUTOMATED) 2021-12-16 11:24:00 AlbVito cuenca [facility] POCT GLUCOSE (AUTOMATED) 2021-12-16 11:24:00 Vito Mckeon [facility] POCT GLUCOSE (AUTOMATED) 2021-12-16 10:33:00 AlbVito cuenca [facility] POCT GLUCOSE (AUTOMATED) 2021-12-16 10:33:00 AlbVito cuenca [facility] BASIC METABOLIC PANEL 2021-12-16 09:32:00 Vito Mckeon [facility] (NA, K, CL, CO2, GLUCOSE, Medica l Branch BUN, CREATININE, CA) BASIC METABOLIC PANEL 2021-12-16 09:32:00 Vito Mckeon [facility] (NA, K, CL, CO2, GLUCOSE, Medica l Branch BUN, CREATININE, CA) POCT GLUCOSE (AUTOMATED) 2021-12-16 09:30:00 Vito Mckeon Uni versity [facility] POCT GLUCOSE (AUTOMATED) 2021-12-16 09:30:00 AlbVito cuenca Uni versity [facility] POCT GLUCOSE (AUTOMATED) 2021-12-16 08:27:00 AlbbessyamiVito [facility] POCT GLUCOSE (AUTOMATED) 2021-12-16 08:27:00 AlbbessyamiVito [facility] POCT GLUCOSE (AUTOMATED) 2021-12-16 07:23:00 Vito Mckeon Uni versity [facility] POCT GLUCOSE (AUTOMATED) 2021-12-16 07:23:00 AlbVito cuenca Uni versity [facility] POCT GLUCOSE (AUTOMATED) 2021-12-16 06:22:00 AlbVito cuenca Uni versity [facility] POCT GLUCOSE (AUTOMATED) 2021-12-16 06:22:00 AlbVito cuenca Uni [facility] BASIC METABOLIC PANEL 2021-12-16 05:30:00 Vito Mckeon [facility] (NA, K, CL, CO2, GLUCOSE, Medica l Branch BUN, CREATININE, CA) BASIC METABOLIC PANEL 2021-12-16 05:30:00 Vito Mckeon [facility] (NA, K, CL, CO2, GLUCOSE, Medica l Branch BUN, CREATININE, CA) POCT GLUCOSE (AUTOMATED) 2021-12-16 05:27:00 Vito Mckeon Uni versity [facility] POCT GLUCOSE (AUTOMATED) 2021-12-16 05:27:00 AlbVito cuenca [facility] POCT GLUCOSE (AUTOMATED) 2021-12-16 04:23:00 AlbVito cuenca Uni versity [facility] POCT GLUCOSE (AUTOMATED) 2021-12-16 04:23:00 Vito Mckeon [facility] POCT GLUCOSE (AUTOMATED) 2021-12-16 03:19:00 Alb[facility]ito cuenca [facility]) 2021-12-16 03:19:00 Alb[facility]ito [facility]enca [facility]OMATED) 2021-12-16 02:24:00 AlbVito cuenca [facility] ([facility]OMATED) 2021-12-16 02:24:00 Albjoellen Vito [facility] KETONES URINE 2021-12-16 01:49:00 [facility] KETONES URINE 2021-12-16 01:49:00 [facility] BETA HYDROXY-BUTYRATE 2021-12-16 01:44:00 Talley, [facility] BASIC METABOLIC PANEL 2021-12-16 01:44:00 [facility] (NA, K, CL, CO2, GLUCOSE, Medica l Branch BUN, CREATININE, CA) BETA HYDROXY-BUTYRATE 2021-12-16 01:44:00 Talley [facility] BASIC METABOLIC PANEL 2021-12-16 01:44[facility], CO[facility], GLUCOSE, Medica l Branch BUN, CREATININE, CA) POCT GLUCOSE (AUTOMATED) 2021-12-16 01:24:00 Vito Mckeon [facility] acute hospital POCT GLUCOSE (AUTOMATED) 2021-12-16 01:24:00 AlbVito cuenca [facility] PO[facility]SE (AUTOMATED) 2021-12-16 00:18:00 AlbVito cuenca [facility] (AUTOMATED) 2021-12-16 00:18:00 AlbVito cuenca [facility] (AUTOMATED) 2021-12-15 22:56:00 AlbVito cuenca [facility] PO[facility] (AUTOMATED) 2021-12-15 22:56:00 AlbVito cuenca [facility] BASIC METABOLIC PANEL 2021-12-15 22:03:00 Vito Mckeon [facility] (NA, K, CL, CO2, GLUCOSE, Medica l Branch BUN, CREATININE, CA) BASIC METABOLIC PANEL 2021-12-15 22:03:00 Vito Mckeon [facility] (NA, K, CL, CO2, GLUCOSE, Medica l Branch BUN, CREATININE, CA) POCT GLUCOSE (AUTOMATED) 2021-12-15 21:50:00 AlbVito cuenca Uni versity [facility] POCT GLUCOSE (AUTOMATED) 2021-12-15 21:50:00 AlbbessyamiVito [facility] ([facility]OMATED) 2021-12-15 20:39:00 AlbVito cuenca [facility] PO[facility] (AUTOMATED) 2021-12-15 20:39:00 [facility]ito [facility] (AUTOMATED) 2021-12-15 18:58:00 AlbbessyamiVito [facility] PO[facility] (AUTOMATED) 2021-12-15 18:58:00 AlbVito cuenca Uni [facility] BASIC METABOLIC PANEL 2021-12-15 17:46:00 Vito Mckeon [facility] (NA, K, CL, CO2, GLUCOSE, Medica l Branch BUN, CREATININE, CA) BASIC METABOLIC PANEL 2021-12-15 17:46:00 Vito Mckeon [facility] (NA, K, CL, CO2, GLUCOSE, Medica l Branch BUN, CREATININE, CA) POCT GLUCOSE (AUTOMATED) 2021-12-15 17:39:00 AlbVito cuenca [facility] PO[facility]SE (AUTOMATED) 2021-12-15 17:39:00 AlbbessyamiVito Uni versity [facility] POCT GLUCOSE (AUTOMATED) 2021-12-15 16:22:00 AlbVito cuenca [facility] PO[facility] (AUTOMATED) 2021-12-15 16:22:00 Albustami, Vito [facility] acute [facility] POCT GLUCOSE (AUTOMATED) 2021-12-15 15:27:00 Albjoellen Vito [facility] acute [facility] POCT GLUCOSE (AUTOMATED) 2021-12-15 15:27:00 Albjoellen Vito [facility] acute [facility] POCT GLUCOSE (AUTOMATED) 2021-12-15 14:17:00 Rosalind Vito [facility] acute hospital POCT GLUCOSE (AUTOMATED) 2021-12-15 14:17:00 Albjoellen [facility] CBC WITHOUT DIFF 2021-12-15 13:33:00 Albjoellen [facility] CBC WITHOUT DIFF 2021-12-15 13:33:00 Rosalind [facility] POCT GLUCOSE (AUTOMATED) 2021-12-15 13:20:00 Rosalind [facility] POCT GLUCOSE (AUTOMATED) 2021-12-15 13:20:00 Albjoellen Vito [facility] POCT GLUCOSE (AUTOMATED) 2021-12-15 12:13:00 Albjoellen [facility] POCT GLUCOSE (AUTOMATED) 2021-12-15 12:13:00 Rosalind [facility] XR CHEST 1 VW 2021-12-15 11:46:06 Rosalind [facility] XR CHEST 1 VW 2021-12-15 11:46:06 Rosalind [facility] MAGNESIUM 2021-12-15 10:54:00 Rosalind [facility] MRSA / MSSA SCREEN BY 2021-12-15 10:54:00 Rosalind [facility] PCR, [facility] BASIC METABOLIC PANEL 2021-12-15 10:54:00 Rosalind [facility] (NA, K, CL, CO2, GLUCOSE, Medica l Branch BUN, CREATININE, CA) OSMOLALITY, SERUM OR 2021-12-15 10:54:00 Rosalind Vito [facility] PLASMA [facility] PHOSPHORUS 2021-12-15 10:54:00 [facility]DR[facility]ATE 2021-12-15 10:54:00 [facility] PHOSPHORUS 2021-12-15 10:54:00 [facility] MAGNESIUM 2021-12-15 10:54:00 [facility] OSMOLALITY, SERUM OR 2021-12-15 10:54:00 [facility] BETA HYDROXY-BUTYRATE 2021-12-15 10:54:00 [facility] BASIC METABOLIC PANEL 2021-12-15 10:54:00 [facility] (NA, K, CL, CO2, GLUCOSE, Medica l Branch BUN, CREATININE, CA) MRSA / MSSA SCREEN BY 2021-12-15 10:54:00 [facility] PCR, [facility] POCT GLUCOSE (AUTOMATED) 2021-12-15 10:53:00 Vito Mckeon [facility] acute hospital POCT GLUCOSE (AUTOMATED) 2021-12-15 10:53:00 [facility]OMATED) 2021-12-15 08:46:00 [facility]SE (AUTOMATED) 2021-12-15 08:46:00 Jennifer lOivera versity of [facility] POCT GLUCOSE (AUTOMATED) 2021-12-15 07:39:00 Jennifer Olivera vers[facility] POCT GLUCOSE (AUTOMATED) 2021-12-15 07:39:00 Jennifer Olivera vers[facility] POCT GLUCOSE (AUTOMATED) 2021-12-15 07:02:00 Jennifer Olivera vers[facility] POCT GLUCOSE (AUTOMATED) 2021-12-15 07:02:00 Jennifer Olivera vers[facility] POCT GLUCOSE (AUTOMATED) 2021-12-15 06:17:00 Jennifer Olivera vers[facility] POCT GLUCOSE (AUTOMATED) 2021-12-15 06:17:00 Jennifer Olivera [facility] acute hospital AC PANEL 21 + LACTIC ACID 2021-12-15 05:36:00 [facility] + LACTIC ACID 2021-12-15 05:36:00 Jennifer Olivera [facility] POCT GLUCOSE (AUTOMATED) 2021-12-15 04:58:00 Jennifer Olivera [facility] acute hospital POCT GLUCOSE (AUTOMATED) 2021-12-15 04:58:00 Jennifer Olivera [facility] CT ABDOMEN PELVIS W 2021-12-15 04:33:00 Jennifer Olivera [facility] CONTRAST [facility] CT ABDOMEN PELVIS W 2021-12-15 04:33:00 Jennifer Olivera [facility] COMP. METABOLIC PANEL 2021-12-15 04:20:00 Jennifer Olivera [facility] ([id number]) [facility] COMP. METABOLIC PANEL 2021-12-15 04:20:00 Jennifer Olivera [facility] ([id number]) [facility] CBC WITH DIFF 2021-12-15 03:14:00 Jennifer Olivera [facility] BLOOD CULTURE SCREEN 2021-12-15 03:14:00 Jennifer Olivera [facility] BLOOD CULTURE SCREEN 2021-12-15 03:14:00 Jennifer Olivera [facility] CBC WITH DIFF 2021-12-15 03:14:00 Jennifer Olivera [facility] ACTIVATED PARTIAL 2021-12-15 03:13:00 Jennifer Olivera [facility] PROTHROMBIN TIME / INR 2021-12-15 03:13:00 Jennifer Olivera [facility] LIPASE 2021-12-15 03:13:00 Jennifer Olivera [facility] TROPONIN I 2021-12-15 03:13:00 Jennifer Olivera [facility] N-TERMINAL PRO-BNP 2021-12-15 03:13:00 Jennifer Olivera [facility] LIPASE 2021-12-15 03:13:00 Jennifer Olivera [facility] TROPONIN I 2021-12-15 03:13:00 Jennifer Olivera Kim o [facility] PROTHROMBIN TIME / INR 2021-12-15 03:13:00 Jennifer Olivera [facility] ACTIVATED PARTIAL 2021-12-15 03:13:00 Jennifer Olivera [facility] N-TERMINAL PRO-BNP 2021-12-15 03:13:00 Jennifer Olivera [facility] LACTIC ACID WHOLE BLOOD 2021-12-15 03:12:00 Jennifer Olivera [facility] LACTIC ACID WHOLE BLOOD 2021-12-15 03:12:00 Jennifer Olivera [facility] EKG-12 LEAD 2021-12-15 01:55:16 Doctor Unassigned, No [facility] EKG-12 LEAD 2021-12-15 01:55:16 Doctor Unassigned, No [facility] EMERGENCY DEPARTMENT 2021-12-14 05:01:00 [facility]igned, [facility] 2021-12-14 05:01:00 Doctor Unassigned, No [facility] BASIC METABOLIC PANEL 2021-11-28 09:31:00 [facility] [address] (NA, K, CL, CO2, GLUCOSE, Medica l Branch BUN, CREATININE, CA) CBC WITH DIFF 2021-11-28 09:31:00 [facility]OLIC PANEL 2021-11-28 09:31:00 [facility] [address] (NA, K, CL, CO2, GLUCOSE, Medica l Branch BUN, CREATININE, CA) CBC WITH DIFF 2021-11-28 09:31:00 [facility]IC METABOLIC PANEL 2021-11-27 08:57:00 Peng Yadav [facility] (NA, K, CL, CO2, GLUCOSE, Medica l Branch BUN, CREATININE, CA) CBC WITH DIFF 2021-11-27 08:57:00 Peng Yadav [facility] BASIC METABOLIC PANEL 2021-11-27 08:57:00 Peng Yadav [facility] (NA, K, CL, CO2, GLUCOSE, Medica l Branch BUN, CREATININE, CA) CBC WITH DIFF 2021-11-27 08:57:00 [facility] CBC WITH DIFF 2021-11-24 10:55:00 Yolis jennifer [facility] COMP. METABOLIC PANEL 2021-11-24 10:55:00 Yolis jennifer [facility] ([id number]) [facility] N-TERMINAL PRO-BNP 2021-11-24 10:55:00 Yolis [facility] COMP. METABOLIC PANEL 2021-11-24 10:55:00 Yolis jennifer [facility] ([id number]) [facility] CBC WITH DIFF 2021-11-24 10:55:00 Yolis [facility] N-TERMINAL PRO-BNP 2021-11-24 10:55:00 Yolis [facility] CBC WITH DIFF 2021-11-23 11:33:00 Carlene Weaver [facility] COMP. METABOLIC PANEL 2021-11-23 11:33:00 Yolis [facility] ([id number]) [facility] N-TERMINAL PRO-BNP 2021-11-23 11:33:00 Yolis [facility] MAGNESIUM 2021-11-23 11:33:00 Yolis jennifer [facility] MAGNESIUM 2021-11-23 11:33:00 Yolis [facility] COMP. METABOLIC PANEL 2021-11-23 11:33:00 Yolis [facility] ([id number]) [facility] CBC WITH DIFF 2021-11-23 11:33:00 Carlene Weaver [facility] N-TERMINAL PRO-BNP 2021-11-23 11:33:00 Yolis jennifer [facility] ASPIRATE OR ABSCESS 2021-11-22 21:31:00 Imani Fleming [facility] CULTURE(AEROBIC/ANAEROBIC Medica l Branch ) ASPIRATE OR ABSCESS 2021-11-22 21:31:00 Imani Fleming [facility] CULTURE(AEROBIC/ANAEROBIC Medica l Branch ) PROTEIN CREAT RATIO URINE 2021-11-22 11:11:00 [facility], URINE RANDOM 2021-11-22 11:11:00 Courtney Mendes [facility] SODIUM, URINE RANDOM 2021-11-22 11:11:00 Courtney Mendes [facility] PROTEIN CREAT RATIO URINE 2021-11-22 11:11:00 Courtney Mendes [facility] XR CHEST 1 VW 2021-11-22 11:07:43 Courtney Mendes [facility] XR FOOT 3+ VW LEFT 2021-11-22 11:07:43 Courtney Mendes [facility] XR CHEST 1 VW 2021-11-22 11:07:43 Courtney Mendes [facility] XR FOOT 3+ VW LEFT 2021-11-22 11:07:43 Courtney Mendes [facility] URINE DRUG (IMMUNOASSAY) 2021-11-22 11:07:00 Courtney Mendes [facility] SCREEN URINE DRUG (LCMSMS) - 2021-11-22 11:07:00 Courtney Mendes [facility] OPIATES PANEL Medical Branch URINE DRUG (IMMUNOASSAY) 2021-11-22 11:07:00 Courtney Mendes [facility] SCREEN URINE DRUG (LCMSMS) - 2021-11-22 11:07:00 Courtney Mendes [facility] SYNTHETIC OPIATES PANEL Medical Branch SEDIMENTATION RATE 2021-11-22 11:03:00 Courtney Mendes [facility] PROCALCITONIN 2021-11-22 11:03:00 Yolis jennifer [facility] CBC WITH DIFF 2021-11-22 11:03:00 Yolis jennifer [facility] COMP. METABOLIC PANEL 2021-11-22 11:03:00 Yolis jennifer [facility] ([id number]) [facility] N-TERMINAL PRO-BNP 2021-11-22 11:03:00 Yolis jennifer [facility] MAGNESIUM 2021-11-22 11:03:00 Yolis [facility] PHOSPHORUS 2021-11-22 11:03:00 Yolis [facility] CREATINE KINASE 2021-11-22 11:03:00 Yolis [facility] VITAMIN D, 25-OH 2021-11-22 11:03:00 Yolis [facility] VITAMIN B12, LEVEL 2021-11-22 11:03:00 Yolis [facility] GLYCOSYLATED HEMOGLOBIN 2021-11-22 11:03:00 Yolis [facility] ([address] PHOSPHORUS 2021-11-22 11:03:00 Yolis [facility] CREATINE KINASE 2021-11-22 11:03:00 Yolis [facility] MAGNESIUM 2021-11-22 11:03:00 Yolis [facility] VITAMIN B12, LEVEL 2021-11-22 11:03:00 Yolis [facility] COMP. METABOLIC PANEL 2021-11-22 11:03:00 Yolis jennifer [facility] ([id number]) [facility] SEDIMENTATION RATE 2021-11-22 11:03:00 Yolis [facility] CBC WITH DIFF 2021-11-22 11:03:00 Yolis [facility] GLYCOSYLATED HEMOGLOBIN 2021-11-22 11:03:00 Yolis [facility] ([facility]) [facility] N-TERMINAL PRO-BNP 2021-11-22 11:03:00 Yolis [facility] VITAMIN D, 25-OH 2021-11-22 11:03:00 Yolis [facility] PROCALCITONIN 2021-11-22 11:03:00 Courtney Mendes [facility] CT ANGIOGRAM LOWER 2021-11-22 03:39:00 Jennifer Olivera [facility] EXTREMITY LEFT W CONTRAST Medica l Branch CT ANGIOGRAM LOWER 2021-11-22 03:39:00 Jennifer Olivera [facility] EXTREMITY LEFT W CONTRAST Medica l Branch CT HEAD WO CONTRAST 2021-11-22 03:25:00 Jennifer Olivera [facility] CT HEAD WO CONTRAST 2021-11-22 03:25:00 Jennifer Olivera [facility] URINALYSIS 2021-11-22 01:22:00 [facility] URINE CULTURE 2021-11-22 01:22:00 Jennifer Olivera [facility] URINALYSIS 2021-11-22 01:22:00 Jennifer Olivera [facility] URINE CULTURE 2021-11-22 01:22:00 Jennifer Olivera [facility] CBC WITH DIFF 2021-11-22 00:58:00 Jennifer Olivera [facility] ACTIVATED PARTIAL 2021-11-22 00:58:00 Jennifer Olivera [facility] PROTHROMBIN TIME / INR 2021-11-22 00:58:00 Jennifer Olivera [facility] COMP. METABOLIC PANEL 2021-11-22 00:58:00 Jennifer Olivera [facility] ([id number]) [facility] BLOOD CULTURE SCREEN 2021-11-22 00:58:00 Jennifer Olivera [facility] LACTIC ACID WHOLE BLOOD 2021-11-22 00:58:00 Jennifer Olivera [facility] N-TERMINAL PRO-BNP 2021-11-22 00:58:00 Courtney Mendes [facility] MAGNESIUM 2021-11-22 00:58:00 Yolis jennifer [facility] PHOSPHORUS 2021-11-22 00:58:00 Yolis [facility] FERRITIN SERUM 2021-11-22 00:58:00 Yolis [facility] IRON PANEL 2021-11-22 00:58:00 Yolis, Adnan [facility] THYROID STIMULATING 2021-11-22 00:58:00 Yolis [facility] HORMONE [facility] LIPID PANEL ([id number])(TOTAL 2021-11-22 00:58:00 [facility] CHOLE[facility]OL, Medical Branch TRIGLYCERIDES, HDL) BLOOD CULTURE SCREEN 2021-11-22 00:58:00 Jennifer Olivera [facility] PHOSPHORUS 2021-11-22 00:58:00 Courtney Mendes [facility] MAGNESIUM 2021-11-22 00:58:00 Yolis [facility] FERRITIN SERUM 2021-11-22 00:58:00 Yolis [facility] THYROID STIMULATING 2021-11-22 00:58:00 Yolis jennifer [facility] HORMONE [facility] COMP. METABOLIC PANEL 2021-11-22 00:58:00 Jennifer Olivera [facility] ([id number]) Medical Branch LIPID PANEL (53531)(TOTAL 2021-11-22 00:58:00 Courtney Mendes [facility] CHOLESTEROL, Medical Branch TRIGLYCERIDES, HDL) IRON PANEL 2021-11-22 00:58:00 Courtney Mendes [facility] CBC WITH DIFF 2021-11-22 00:58:00 Jennifer Olivera [facility] PROTHROMBIN TIME / INR 2021-11-22 00:58:00 Jennifer Olivera [facility] ACTIVATED PARTIAL 2021-11-22 00:58:00 Jennifer Olivera [facility] N-TERMINAL PRO-BNP 2021-11-22 00:58:00 Courtney Mendes [facility] LACTIC ACID WHOLE BLOOD 2021-11-22 00:58:00 Jennifer Olivera [facility] EMERGENCY DEPARTMENT 2021-11-21 05:01:00 Doctor Unassigned, No [facility]M - MISC 2021-11-21 05:01:00 Doctor Unassigned, No [facility] 2021-11-21 05:01:00 Doctor Unassigned, No [facility] EMERGENCY DEPARTMENT 2021-11-21 05:01:00 Doctor Unassigned, No [facility] HOSPITAL ADM - MISC 2021-11-21 05:01:00 Doctor Unassigned, No [facility] Spinal puncture, lumbar, 2021-10-24 20:30:00 Tony Gomez diagnostic; with fluoroscopic or CT guidance MAGNESIUM 2021-10-16 04:12:00 [facility] COMP. METABOLIC PANEL 2021-10-16 04:12:00 [facility] ([id number]) [facility] CBC WITH DIFF 2021-10-16 04:12:00 [facility] CT HEAD WO CONTRAST 2021-09-29 00:15:29 Roger Neff [facility] URINALYSIS 2021-09-28 23:53:00 Roger Neff [facility] COMP. METABOLIC PANEL 2021-09-28 23:52:00 Roger Neff Cici [facility] ([id number]) [facility] CBC WITH DIFF 2021-09-28 23:52:00 Roger Neff [facility] XR CHEST 1 VW 2021-08-07 03:03:32 Courtney Mendes [facility] COMP. METABOLIC PANEL 2021-08-06 11:57:00 [facility] ([id number]) [facility] CBC WITH DIFF 2021-08-06 11:57:00 [facility] BASIC METABOLIC PANEL 2021-08-04 12:10:00 [facility] (NA, K, CL, CO2, GLUCOSE, Medica l Branch BUN, CREATININE, CA) CBC WITH DIFF 2021-08-04 12:09:00 [facility] 2021-08-04 00:40:00 Hanh Gunter [facility] URINE CULTURE 2021-08-04 00:40:00 Hanh Gunter [facility] FECES CULTURE 2021-08-03 14:58:00 Kosta [facility] OCCULT (GUAIAC) BLOOD 2021-08-03 14:58:00 Kosta [facility] CLOSTRIDIUM DIFFICILE 2021-08-03 14:58:00 Kosta [facility] FECAL PATHOGENS BY PCR 2021-08-03 14:58:00 [facility] URINE DRUG (IMMUNOASSAY) 2021-08-03 10:11:00 Kosta [facility] SCREEN COVID-19 (ID NOW RAPID 2021-08-03 07:33:00 Carmelita Serna [facility] TESTING) Medical [place] LAB ONLY COVID 2021-08-03 07:33:00 Carmelita Serna [facility] INTERPRETATION [facility] COMP. METABOLIC PANEL 2021-08-03 06:18:00 Carmelita Serna [facility] ([id number]) [facility] CBC WITH DIFF 2021-08-03 05:40:00 Carmelita Serna [facility] URINALYSIS 2021-08-01 01:43:00 Stephanie Balderrama [facility] LIPASE 2021-08-01 01:40:00 Stephanie Balderrama [facility] COMP. METABOLIC PANEL 2021-08-01 01:40:00 Stephanie Balderrama [facility] ([id number]) [facility] CBC WITH DIFF 2021-08-01 01:38:00 Stephanie Balderrama [facility] XR CHEST 1 VW 2021-07-31 23:40:19 Stephanie Balderrama [facility] ASSIGNMENT OF BENEFITS 2021-07-31 22:05:40 Doctor Unassigned, No [facility] NOTICE OF PRIVACY 2021-07-31 22:04:58 Doctor Unassigned, No [facility] CONSENT/REFUSAL FOR 2021-07-31 22:04:33 Doctor Unassigned, No [facility] DIAGNOSIS AND TREATMENT Name Medical Branch URINALYSIS 2021-07-29 23:09:00 Lynette Fonseca [facility] BLOOD CULTURE SCREEN 2021-07-29 23:04:00 Lynette Fonseca [facility] D-DIMER 2021-07-29 22:49:00 Lynette Fonseca [facility] COVID-19 (ID NOW RAPID 2021-07-29 22:48:00 Lynette Fonseca [facility] TESTING) Medical Branch COMP. METABOLIC PANEL 2021-07-29 22:17:00 Lynette Fonseca [facility] ([id number]) [facility] CBC WITH DIFF 2021-07-29 22:17:00 Lynette Fonseca [facility] XR CHEST 1 VW 2021-07-29 21:47:19 Lynette Fonseca [facility] COMP. METABOLIC PANEL 2021-06-07 22:20:00 Jonathan [facility] ([id number]) [facility] CBC WITH DIFF 2021-06-07 22:20:00 Singer Jonathan Kim o f [facility] CT ABDOMEN PELVIS WO 2020-11-21 00:39:40 Madonna Helms Uni [facility] CONTRAST [facility] LIPASE 2020-11-21 00:06:00 Madonna Helms [facility] COMP. METABOLIC PANEL 2020-11-21 00:06:00 Madonna Helms Un [facility] ([id number]) 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.] [facility] 00:00:00 (Season Ended) [code = [facility] INFLUENZA VACCINE (Season Ended)] Future Scheduled 2020-07-[address] [facility] 00:00:00 (12+) [code = Medical Center DEPRESSION SCREENING (12+)] Future Scheduled 2019-10-[address] [facility] 00:[facility]00 measurement [facility] (procedure) [code = 64269317] Future Scheduled 2019-10-[address] [facility] 00[facility]00 measurement [facility] (procedure) [code = 29289498] Future Scheduled 2019-10-[address] [facility] 00[facility]00[facility]00 measurement [facility] (procedure) [code = 12371605] Future Scheduled 2019-10-[address] [facility] 00:00[facility]00 [facility] Medical Center (procedure) [code = 04647698] Future Scheduled 2004 DTAP/TDAP/TD VACCINES CH I [...] 00:00:00 protein (procedure) Medical Center [code = 787049861] Future Scheduled 1995 DIABETIC EYE EXAM [facility] 00:00:00 [code = DIABETIC EYE Medical Center EXAM] Future Scheduled 1995 Urine screening for [facility] 00:00:00 protein (procedure) Medical Center [code = 686369259] Future Scheduled 1995 DIABETIC EYE EXAM [facility] 00:00:00 [code = DIABETIC EYE Medical Center EXAM] Future Scheduled 1995 Urine screening [facility] 00:00:00 protein (procedure) Medical Center [code = 691194370] Future Scheduled 1995 DIABETIC EYE EXAM [facility] 00:00:00 [code = DIABETIC EYE Medical Center EXAM] Future Scheduled 1995 Urine screening [facility] 00:00:00 protein (procedure) [facility] [code = 571617388] Future Scheduled [address] [...] Date/Time Type Type Clinicians Facility Department ID 2022-11-23 Outpatient Nichole, STLMLC STLC [id number] Common 10:47:00 Eren [id number] [facility] 2022-09-[address] [facility] [id number] [place] 15:02:41 0227 [facility] 2022-08-21 Outpatient Nichole, STLMLC STLC [id number] Common 15:24:00 Eren [id number] [facility] 2022-06-[address] [facility] [id number] [place] 10:51:49 1212 [facility] 2021-10-[address] [facility] [id number] [place] 08:22:27 0411 [facility] 2021-10-[address] [facility] [id number] [place] 11:10:01 0328 [facility] 2021-08-09 Outpatient Nichole, STLMLC STLC [id number] Common 13:45:16 Eren [id number] [facility] 2021-08-09 Outpatient Nichole, STLMLC STLC [id number] Common 13:17:39 Eren 24313 [facility] 2021-08-09 Outpatient Nichole, STLMLC STLMLC [id number] Common 13:16:34 Eren [id number] [facility] 2022-11-23 2022-11-23 Outpatient R STORM [facility] [id number] Univers 14:00:00 14:00:00 [facility] 2022-11-22 2022-11-22 Outpatient R [facility] [id number] Univers 14:00:00 14:00:00 [facility] 2022-11-22 2022-11-22 Victor Manuel Talley [facility] 1..[id number] Univers 00:00:00 00:00:00 Ursula A HEALTH [id number] [facility] [id number] Tim as VICENTA?BLEA [id number] [address] 2022-11-21 2022-11-21 Outpatient R [facility] [id number] Univers 13:30:00 13:30:00 ALHAJI ity [facility] 2022-11-09 2022-11-09 Emergency X [facility] ERT [id number] Univers 14:23:00 19:32:00 , [facility]22-[facility] 2022-11-09 Emergency [facility] [id number] Univers 14:23:00 19:32:00 , Suzanne [place] [id number] i ty of [facility] [id number] [place] [facility] [phone] [address] 2022-11-09 2022-11-09 Outpatient R [facility] [id number] Univers 13:00:00 13:00:[facility] 2022-11-09 2022-11-09 Telephone Yudi Holloway [facility] 1..[id number] Univers 00:00:00 00:00:00 HEALTH [id number] it y of [place] [id number] Tim as VICENTA?BLEA [id number] Ks sabra [address] OFFICE [facility] 2022-11-07 2022-11-07 [facility] [id number] Univers 14:00:00 14:00:00 [facility] 2022-11-07 2022-11-07 Telephone Yudi Holloway [facility] 1..[id number] Univers 00:00:00 00:00:00 HEALTH [id number] it y of [place] [id number] Tim as VICENTA?BLEA [id number] [place] [address] [facility] OFFICE [facility] 2022-11-07 2022-11-07 Orders Doctor ORION [id number] Univers 00:00:00 00:00:00 Only Unassigned, CHRISTINE [id number] ity of [place] [facility] [id number] Tim as [id number] [address] 2022-11-06 2022-11-06 Telephone [facility] [id number] Univers 00:00:00 00:00:00 Ursula A HEALTH [id number] [facility] [id number] Tim as VICENTA?BLEA [id number] [address] 2022-11-05 2022-11-05 Outpatient R YUDI HOLLOWAY [facility] [id number] Univers 16:30:00 16:30:00 YUDI HOLLOWAY [facility] 2022-11-05 2022-11-05 Telephone Amie [facility] [id number] Univers 00:00:00 00:00:00 HEALTH [id number] it [facility] [id number] Tim as VICENTA?BLEA [id number] [address] 2022-11-01 2022-11-01 Telephone Amie [facility] [id number] Univers 00:00:00 00:00:00 HEALTH [id number] it [facility] [id number] Tim as VICENTA?BLEA [id number] [address] OFFICE [facility] 2022-10-31 2022-10-31 Emergency [facility] [id number] Univers 14:34:00 20:52:00 JENNIFER saba [facility] 2022-10-31 2022-10-31 Emergency [facility] [id number] Univers 14:34:00 20:52:00 Jennifre DURAN [id number] i ty of [place].7.2.[place] [phone] [facility] [address] [place] 2022-10-31 2022-10-31 Outpatient R AMIEYUDI Kitchen [facility] [id number] Univers 13:00:00 14:32:40 YUDI HOLLOWAY [facility] 2022-10-31 2022-10-31 Office Yudi Hollwoay [facility] [id number] Univers 13:00:00 14:32:40 Visit HEALTH [id number] it y of [place] [id number] Tim as VICENTA?BLEA [id number] [facility] [address] [facility] OFFICE [facility] 2022-10-31 2022-10-31 Telephone Amie, [facility] [id number] Univers 00:00:00 00:00:00 HEALTH [id number] it y of [place] [id number] Tim as VICENTA?BLEA [id number] [facility] [address] [facility] OFFICE [facility] 2022-10-29 2022-10-29 Telephone [facility] [id number] Univers 00:00:00 00:00:00 Alhaji [place] [id number] i ty of [facility] [id number] [place] [phone] [facility] 204 [facility] 2022-10-25 2022-10-25 [facility] [id number] Univers 14:00:00 14:45:52 [facility] 2022-10-23 2022-10-23 Telephone [facility] [id number] Univers 00:00:00 00:00:00 [facility] [id number] i ty of [facility] [id number] [place] [phone] [facility] 188 [facility] 2022-10-21 2022-10-21 Emergency X [facility] [id number] Univers 16:59:00 23:22:00 LYNETTE saba [facility] 2022-10-21 2022-10-21 Emergency [facility] [id number] Univers 16:59:00 23:22:00 Lynette DURAN [id number] ity of [place] 4[place].7.2.[place] [id number] [address] 2022-10-12 2022-10-12 Outpatient R STORM [facility] [id number] Univers 13:00:00 13:49:32 ALHAJI ity [facility] [facility] 2022-10-12 2022-10-12 Nurse Nurse, [facility] Surgery [facility] 1.2. 840.114 [id number] Univers 13:00:00 13:49:32 Visit Alhaji Inman 350.1.13.10 ity of [facility] 4.2.7.2.[place] [facility] [phone] [place] dicgabbi [facility] [address] BUILDING 2022-10-10 2022-10-10 Telephone Yudi Holloway [facility] 1.2.193.926 [id number] Univers 00:00:00 00:00:00 HEALTH 350.1.13.10 it y [facility] 4.2.7.2.686 Tim as VICENTA?BLEA [phone] [place]s dicgabbi [facility] [address] MEDICAL OFFICE BUILDING 2022-10-05 2022-10-05 Emergency X [facility] ERT [id number] Univers 15:37:00 21:02:00 MADONNA ity [facility] 2022-10-05 2022-10-05 Emergency [facility] 1.2.840.114 10 [id number] Univers 15:37:00 21:02:00 Madonna DURAN 350.1.13.10 ity of [place].2.686 [place] [id number] [address] 2022-09-24 2022-09-24 Outpatient R YUDI HOLLOWAY [facility] [id number] Univers 14:30:00 14:30:00 YUDI HOLLOWAY [facility] 2022-09-12 2022-09-12 Outpatient R STORM [facility] [id number] Univers 13:30:00 13:30:00 ALHAJI ity of [facility] 2022-09-07 2022-09-07 Transition DEVANTE Zepeda 1.2.840.114 [id number] Univers 00:00:00 00:00:00 of Care Kamila GILL[place] 350.1.13.10 [place] [id number] [address] 2022-09-03 2022-09-06 Inpatient X AB WOLFF [facility] [id number] Univers 18:47:00 14:22:00 AB WOLFF [facility] 2022-09-03 2022-09-06 [facility] Diomedes Joseph [facility] 1.2.8 40.114 [id number] Univers 18:47:00 14:22:00 Encounter Dontae Talley [facility] 350.1.13.10 ity of [place] 4.2.7.2.686 [place] [id number] [address] ([facility]) 2022-09-06 2022-09-06 Patient DEVANTE Horan 1.2.840.114 [id number] Univers 00:00:00 00:00:00 Outreach Ann GILLESPIE 350.1.13.10 i ty of [place] [id number] [address] 2022-09-05 2022-09-05 Surgery Suad [facility] 1.2.840.114 [id number] Univers 13:29:00 15:37:00 Mejia SPECIALTY 350.1.13.10 ity of C[place].2.7.2.686 [place] C[place] AT [phone] [place]s j[address] 2022-09-04 2022-09-04 Telephone Yudi Holloway [facility] 1.2.691.713 [id number] [id number] Univers 00:00:00 00:00:00 HEALTH 350.1.13.10 it y of [place] 4.2.7.2.686 Tim as VICENTA?BLEA [id number] [address] OFFICE [facility] 2022-09-03 2022-09-03 Patient DEVANTE Dawson 1.2.840.114 [id number] Univers 00:00:00 00:00:00 Outreach Randall [place] 350.1.13.10 [place] [id number] [address] 2022-08-29 2022-08-29 Telephone Yudi Holloway [facility] 1.2.288.793 1795 [id number] Univers 00:00:00 00:00:00 HEALTH 350.1.13.10 it y of [place] 4.2.7.2.686 Tim as VICENTA?BLEA [phone] [address] 2022-08-28 2022-08-28 Patient DEVANTE Dawson 1.2.840.114 [id number] Univers 00:00:00 00:00:00 Outreach Randall [place] 350.1.13.10 [place] [id number] [address] 2022-08-28 2022-08-28 Aleah Oro [facility] 1.2.840.114 10 [id number] Univers 00:00:00 00:00:00 [facility] 350.1.13.10 [facility] 4.2.7.2.686 Tim as VICENTA?BLEA [id number] [address] OFFICE [facility] 2022-08-27 2022-08-27 Emergency X SINGER [facility] ERT [id number] Univers 13:47:00 18:16:00 JONATHAN saba [facility] 2022-08-27 2022-08-27 Emergency [facility] 1.2.188.200 0412 [id number] Univers 13:47:00 18:16:00 Jonathan RENEE 350.1.13.10 i ty of [place].2.7.[place] [phone] [facility] [address] 2022-08-27 2022-08-27 Telephone Yudi Holloway [facility] 1.2.463.812 [id number] [id number] Univers 00:00:00 00:00:00 HEALTH 350.1.13.10 it y of [place] 4.2.7.2.686 Tim as VICENTA?BLEA [id number] [place] sabra [address] OFFICE [facility] 2022-08-24 2022-08-25 Emergency [facility] ERT [id number] Univers 16:13:00 00:01:00 TONYO ity [facility] 2022-08-24 2022-08-25 Emergency [facility] 1.2.840.114 10 [id number] Univers 16:13:00 00:01:00 Folcitlaly Trujillo [place] 350.1.13.10 ity of [place].2.7.2.[place] [id number] [place] [address] [place] 2022-08-24 2022-08-24 Patient Lisbeth Carter 1.2.840.114 10 [id number] Univers 00:00:00 00:00:00 Outreach E [place] 350.1.13.10 i ty [place]2.[place].2.[place] [id number] [facility] [address] 2022-08-24 2022-08-24 Telephone Yudi Holloway [facility] 1.2.298.171 3567 [id number] Univers 00:00:00 00:00:00 HEALTH 350.1.13.10 it y of [place] 4.2.7.2.686 Tim as VICENTA?BLEA [phone] [place] sabra MYRA [address] [place] [address] OFFICE [facility] 2022-08-23 2022-08-23 Emergency [facility] ERT [id number] Univers 15:06:00 19:05:00 SUSAN saba [facility] 2022-08-23 2022-08-23 Emergency [facility] 1.2.840.114 10 [id number] Univers 15:06:00 19:05:00 Susan DURAN 350.1.13.10 ity [place] [id number] [address] 2022-08-15 2022-08-16 Outpatient X YOLIS, [facility] [id number] Univers 14:05:00 19:22:00 ADNAN ity of [facility] 2022-08-15 2022-08-16 Emergency Jennifer Olivera [facility] 1.2.840. 114 [id number] Univers 14:05:00 19:22:00 Courtney Mendes 350.1.13.10 ity of [facility] 4.2.7.2.[place] [id number] [facility] [address] 2022-08-13 2022-08-13 Patient Lisbeth Carter 1.2.840.114 10 [id number] Univers 00:00:00 00:00:00 Outreach E GILLESPIE 350.1.13.10 i ty of [place] [id number] [facility] [address] 2022-07-15 2022-07-15 Patient Yudi Holloway [facility] 1.2.840.114 [id number] Univers 00:00:00 00:00:00 Secure [facility] 350.1.13.10 ity of [place] 4.2.7.2.686 Tim as VICENTA?BLEA [phone] [place] dical JAMIAEY [address] MEDICAL OFFICE BUILDING 2022-07-05 2022-07-05 Outpatient R STORM [facility] [id number] Univers 13:00:00 15:17:50 ALHAJI ity of [facility] 2022-07-05 2022-07-05 [facility] 1.2.840.114 [id number] Univers 13:00:00 15:17:50 Visit Alhaji RENEE 350.1.13.10 i ty of [facility] 4.2.7.2.686 [place] [phone] [place] dicgabbi GOMEZ [address] BUILDING 2022-07-05 2022-07-05 Orders Doctor ORION 1.2.840.114 [id number] Univers 00:00:00 00:00:00 Only Unassigned, CHRISTINE 350.1.13.10 ity of [place] [facility] 4.2.7.2.686 Tim as [id number] [facility] [address] 2022-06-25 2022-06-25 Outpatient R YUDI HOLLOWAY [facility] [id number] Univers 13:00:00 13:39:07 YUDI HOLLOWAY [facility] 2022-06-25 2022-06-25 Office Yudi Holloway [facility] 1.2.840.114 [id number] Univers 13:00:00 13:39:07 Visit HEALTH 350.1.13.10 it y of [place] 4.2.7.2.686 Tim as VICENTA?BLEA [phone] [facility] [address] [facility] OFFICE [facility] 2022-06-25 2022-06-25 [employer], Ang - Db [facility] 1.2.840.1 14 [id number] Univers 12:45:00 13:00:00 Visit Yudi Holloway [facility] 350.1.13.10 it y of [place] 4.2.7.2.686 Tim as VICENTA?BLEA [phone] [facility] [address] [facility] OFFICE BUILDING 2022-05-20 2022-05-21 Outpatient X GEO [facility] MINA [id number] Univers 16:26:00 17:36:00 NEGAR saba [facility] 2022-05-20 2022-05-21 Emergency Lynette Fonseca [facility] 1.2.840 .114 [id number] Univers 16:26:00 17:36:00 Negar Guardado 350.1.13.10 ity of [place].2.686 [place] [id number] [address] 2022-05-14 2022-05-14 Emergency X JAMAL, [facility] ERT [id number] Univers 20:12:00 22:15:00 STEPHANIE saba [facility] 2022-05-14 2022-05-14 Emergency [facility] 1.2.363.919 [id number] Univers 20:12:00 22:15:00 Stephanie DURAN 350.1.13.10 ity of [place].2.[place] [id number] [address] 2022-05-12 2022-05-12 Emergency X JUAN CARLOS [facility] ERT [id number] Univers 19:14:00 22:40:00 CARMELITA ity [facility] 2022-05-12 2022-05-12 Emergency Juan Carlos [facility] 1.2.240.817 [id number] Univers 19:14:00 22:40:00 Carmelita DURAN 350.1.13.10 ity of [facility] 4.2.7.2.686 [facility] [id number] [facility] [address] 2022-05-08 2022-05-08 Transition DEVANTE Zepeda 1.2.840.114 [id number] Univers 00:00:00 00:00:00 of Care Kamila STEVENSY 350.1.13.10 ity of [place] 4.2.7.2.686 [facility] [id number] [facility] [address] 2022-05-04 2022-05-06 Inpatient X [facility] [id number] Univers 00:19:00 12:45:00 KAYLEE armstrongy [facility] 2022-05-04 2022-05-06 [facility] 1.2.8 40.114 [id number] Univers 00:19:00 12:45:00 Encounter Kaylee Argueta 350.1.13.10 ity of [facility] 4.2.7.2.686 [facility] [phone] [facility] [address] 2022-05-01 2022-05-01 Outpatient R BEVERLY [facility] [id number] Univers 08:00:00 08:00:00 SARAH BETH ity [facility] 2022-04-23 2022-04-23 Outpatient R BEVERLY [facility] [id number] Univers 08:00:00 08:00:00 SARAH BETH ity [facility] 2022-04-04 2022-04-04 Outpatient R YUDI HOLLOWAY [facility] [id number] Univers 14:00:00 14:00:00 YUDI HOLLOWAY ity [facility] 2022-04-02 2022-04-02 Outpatient R BEVERLY [facility] [id number] Univers 08:30:00 08:30:00 SARAH BETH ity of [facility] 2022-03-12 2022-03-12 Outpatient R BEVERLY [facility] [id number] Univers 08:00:00 08:00:00 SARAH BETH ity of [facility] 2022-03-02 2022-03-02 Outpatient R BEVERLY [facility] [id number] Univers 11:30:00 11:30:00 SARAH BETH ity of [facility] 2022-03-01 2022-03-01 Telephone ORION Golden 1.2.840.114 [id number] Univers 00:00:00 00:00:00 Vesta KING 350.1.13.10 i ty of [facility] 4.2.7.2.686 Tim as [id number] [facility] [address] 2022-03-01 2022-03-01 [facility] 1.2.662.905 [id number] Univers 00:00:00 00:00:00 Concetta CANTU 350.1.13.10 ity of [place].2.686 [place] [id number] [facility] AND EHRENBERG [address] [facility] 2022-02-26 2022-02-26 Transition DEVANTE Alvarado 1.2.840.114 [id number] Univers 00:00:00 00:00:00 of Care Kristie GILLESPIE 350.1.13.10 i ty of [place] [id number] [facility] [address] 2022-02-14 2022-02-23 Inpatient X VICTORINO CONROY [facility] [id number] Univers 22:57:00 15:56:00 ity of [facility] 2022-02-14 2022-02-23 Hospital Vic Mcdonald 1.2.840. 114 [id number] Univers 22:57:00 15:56:00 Encounter Royer Brooke 350.1 .13.10 ity of MichelleBret [facility] 4.2.7.2.686 Adonis Kessler [id number] [facility] [address] 2022-02-20 2022-02-20 Anesthesia Heide Abraham 1.2.84 0.114 [id number] Univers 11:25:00 12:55:00 Event Huy Singh 350.1.13.10 ity of HOSPITAL 4.2.7.2.686 Tim as [id number] [facility] [address] 2022-02-20 2022-02-20 Surgery IVAN Paul 1.2.862.884 [id number] [id number] Univers 10:12:00 11:55:00 Sarah Bethfauzia KING 350.1.13.10 ity of HOSPITAL 4.2.7.2.686 Tim as [id number] [facility] [address] 2022-02-14 2022-02-14 Travel 1.2.840.1 1.2.986.067 [id number] [id number] Univers 00:00:00 00:00:00 38949.1.1 350.1.13.10 ity of 3.104.2.7 4.[place].3.698 [place] .3.913505 084.8 Medica l .8 [address] 2022-02-12 2022-02-12 Transition Duane, 1.2.840.1 [id number] Univers 00:00:00 00:00:00 of Care Kamila 54002.1.1 i ty of 3.104.2.7 [place] .3.240321 Medica l .8 [address] 2022-02-06 2022-02-10 Inpatient X CATHLEEN [facility] MINA [id number] Univers 18:31:00 18:27:00 KENDALL ity of [facility] 2022-02-06 2022-02-10 Hospital Carlene Alcantara 1.2.840.1 [id number] Univers 18:31:00 18:27:00 Encounter Kaylee Argueta 77852.1.1 ity of [place] 3.104.2.7 [place] .3.641016 Medica l .8 [address] 2022-02-07 2022-02-07 Outpatient Damaso BUENROSTRO [facility] [id number] Univers 13:00:00 13:00:00 SHAHBAZ ity o f [facility] 2022-02-06 2022-02-06 Travel 1.2.840.1 1.2.641.865 [id number] Univers 00:00:00 00:00:00 83357.1.1 350.1.13.10 ity of 3.104.2.7 4.2.7.3.698 [place] .3.527766 084.8 Medica l .[address] [place] 2022-01-26 2022-01-26 Emergency X SANFORD, [facility] ERT [id number] Univers 17:06:00 23:29:00 JONATHAN nathaniely [facility] 2022-01-26 2022-01-26 Emergency Shavon [place] 1.2.840.1 [id number] Univers 17:06:00 23:29:00 Jonathan Sanford 41744.1.1 ity of 3.104.2.7 [place] .3.432636 Medica l .[address] [place] 2022-01-26 2022-01-26 Travel 1.2.840.1 1.2.780.702 [id number] [id number] Univers 00:00:00 00:00:00 98434.1.1 350.1.13.10 ity of 3.104.2.7 4.2.7.3.698 [place] .3.507042 084.8 Medica l .[address] [place] 2022-01-19 2022-01-19 Outpatient R NARENDRA, [facility] 1040 [id number] Univers 14:00:00 14:00:00 SHAHBAZ saba o f [facility] 2022-01-17 2022-01-17 Emergency X JAROD, [facility] ERT [id number] Univers 04:52:00 08:20:00 JENNIFER ity of [facility] 2022-01-17 2022-01-17 Emergency Jarod, 1.2.840.8 [id number] Univers 04:52:00 08:20:00 Jennifer 24913.1.1 ity of 3.104.2.7 [place] .3.485985 Medica l .8 [address] 2022-01-17 2022-01-17 Travel 1.2.840.1 1.2.790.301 2564 [id number] Univers 00:00:00 00:00:00 36308.1.1 350.1.13.10 ity of 3.104.2.7 4.2.7.3.698 [place] .3.480031 084.8 Medica l .8 [address] 2022-01-16 2022-01-16 Transition Zepeda, 1.2.840.3 [id number] Univers 00:00:00 00:00:00 of Care Kamila 04495.1.1 i ty of 3.104.2.7 [place] .3.352448 Medica l .[address] [place] 2022-01-09 2022-01-12 Inpatient X NARENDRA [facility] [id number] Univers 20:31:00 21:18:00 COMPA ity of [facility] 2022-01-09 2022-01-12 [facility] Jennifer Olivera 1.2.840.1 [id number] Univers 20:31:00 21:18:00 Encounter Dontae Talley 73093.1.1 ity of Ashutosh [place] 3.104.2.7 [place] .3.317666 Medica l .[address] [place] 2022-01-10 2022-01-10 Transition Zepeda, 1.2.840.5 [id number] Univers 00:00:00 00:00:00 of Care Kamila 54449.1.1 i ty of 3.104.2.7 [place] .3.223149 Medica l .8 Branch 2022-01-09 2022-01-09 Travel 1.2.840.1 1.2.742.679 9457 [id number] Univers 00:00:00 00:00:00 57345.1.1 350.1.13.10 ity of 3.104.2.7 4.2.7.3.698 [place] .3.178584 084.8 Medica l .8 [address] 2022-01-08 2022-01-08 Transition Zepeda, 1.2.840.9 [id number] Univers 00:00:00 00:00:00 of Care Kamila 50479.1.1 i ty of 3.104.2.7 [place] .3.606600 Medica l .[address] [place] 2022-01-04 2022-01-06 Inpatient X GEO [facility] [id number] Univers 22:21:00 16:16:00 NEGAR ity [facility] 2022-01-04 2022-01-06 [facility] Vadim Ferreira 1.2.840.3 [id number] Univers 22:21:00 16:16:00 Encounter Negar Guardado 66459.1.1 ity of 3.104.2.7 [place] .3.561775 Medica l .[address] [place] 2022-01-04 2022-01-04 Travel 1.2.840.1 1.2.968.801 9872 3062 Univers 00:00:00 00:00:00 93952.1.1 350.1.13.10 ity of 3.104.2.7 4.2.7.3.698 [place] .3.593544 084.8 Medica l .[address] [place] 2021-12-19 2021-12-22 Outpatient X [facility] [id number] Univers 18:25:00 19:30:00 KAYLEE ity [facility] 2021-12-19 2021-12-22 Emergency Bettykelly Dimitridanisha 1.2.840.1 [id number] [id number] Univers 18:25:00 19:30:00 Kaylee Argueta 71043.1.1 ity of 3.104.2.7 [place] .3.178073 Medica l .[address] [place] 2021-12-20 2021-12-20 Travel 1.2.840.1 1.2.073.354 8541 2645 Univers 00:00:00 00:00:00 67667.1.1 350.1.13.10 ity of 3.104.2.7 4.2.7.3.698 [place] .3.189267 084.8 Medica l .[address] [place] 2021-12-19 2021-12-19 Travel 1.2.840.1 1.2.765.381 0849 5045 Univers 00:00:00 00:00:00 74828.1.1 350.1.13.10 ity of 3.104.2.7 4.2.7.3.698 [place] .3.245594 084.8 Medica l .8 Branch 2021-12-19 2021-12-19 Transition Alvarado, 1.2.840.0 [id number] Univers 00:00:00 00:00:00 of Care Kristie M 21818.1.1 ity of 3.104.2.7 [place] .3.946738 Medica l .8 Branch 2021-12-14 2021-12-18 Inpatient X [facility] [id number] [facility] 20:53:00 18:25:00 [facility] wandy [facility] 2021-12-14 2021-12-18 [facility] Jennifer Olivera 1.2.840.1 [id number] [facility] 20:53:00 18:25:00 Encounter RosalindVito 76010.1.1 ity of [place], Thomas 3.104.2.7 [place] [employer] H .3.894594 [facility] .8 Branch 2021-12-14 2021-12-14 Travel 1.2.840.1 1.2.049.079 3581 [id number] Univers 00:00:00 00:00:00 96495.1.1 350.1.13.10 ity of 3.104.2.7 4.2.7.3.698 [place] .3.937495 084.8 Medica l .8 Branch 2021-11-29 2021-11-29 Transition Zepeda, 1.2.840.7 [id number] Univers 00:00:00 00:00:00 of Care Kamila 53680.1.1 i ty of 3.104.2.7 [place] .3.023620 Medica l .8 Branch 2021-11-21 2021-11-28 Inpatient X [facility] [id number] Univers 19:10:00 17:32:00 ADNAN ity [facility] 2021-11-21 2021-11-28 [facility] Jennifer Olivera 1.2.840.1 [id number] Univers 19:10:00 17:32:00 Encounter Courtney Mendes 58336.1.1 ity of 3.104.2.7 [place] .3.257517 Medica l .[address] [place] 2021-11-21 2021-11-21 Travel 1.2.840.1 1.2.985.408 8200 [id number] Univers 00:00:00 00:00:00 31600.1.1 350.1.13.10 ity of 3.104.2.7 4.2.7.3.698 [place] .3.467771 084.8 Medica l .[address] [place] 2021-10-24 [facility] [id number] Memoria 12:00:00 22:50:[address] 2021-10-24 2021-10-[facility] [id number] Memoria 12:00:00 22:50:[address] 2021-10-24 2021-10-25 Outpatient U ALEXIS, [facility] 2097 [facility] 07:00:00 17:50:00 [facility] 2021-10-24 2021-10-25 Outpatient Alexis, [facility] 5510 [id number] 07:00:00 17:50:00 [place] [address] 2021-10-20 2021-10-20 Outpatient Alexis, [facility] 5510 [id number] 18:14:00 18:14:00 Edilberto Frankel 2021-10-15 2021-10-16 Emergency X [facility] ERT [id number] Univers 22:45:00 01:52:00 JONATHAN saba [facility] 2021-10-15 2021-10-16 Emergency Singer [facility] 1.2.673.564 [id number] Univers 22:45:00 01:52:00 Jonathan DURAN 350.1.13.10 i ty of [place] 4.2.7.2.686 [facility] [id number] [address] 2021-10-06 2021-10-10 [facility] 7[facility] [id number] Memoria 05:12:00 15:30:[address] 2021-10-06 2021-10-10 Inpatient [facility] 76502 [id number] Memoria 05:12:00 15:30:[address] 2021-10-06 2021-10-10 Outpatient Danita, [facility] [id number] 00:12:00 10:30:00 Josemanuel CooperYudi 2021-10-06 2021-10-06 Emergency [facility] [id number] Memoria 02:51:00 02:51:[address] 2021-10-06 2021-10-06 Emergency [facility] [id number] Memoria 02:51:00 02:51:[address] 2021-10-06 2021-10-06 Outpatient Danita, [facility] [id number] 00:12:00 00:12:00 Josemanuel Chan 2021-10-05 2021-10-05 Outpatient Danita, [facility] [id number] 21:51:00 21:51:00 Josemanuel Chan 2021-09-28 2021-09-28 Emergency X RENATA, K [facility] ERT [id number] Univers 18:08:00 22:51:00 ity of [facility] 2021-09-28 2021-09-28 Emergency Roger Neff [facility] [id number] Univers 18:08:00 22:51:00 Cici DURAN [id number] i ty [facility] [id number] [facility] [phone] [address] 2021-08-09 2021-08-09 Transition DEVANTE Zepeda 1.2.840.114 [id number] Univers 00:00:00 00:00:00 of Heidy [place] 350.1.13.10 [place] [phone] [facility] [address] 2021-08-02 2021-08-08 Inpatient X JUAN CARLOS [facility] [id number] Univers 19:07:00 19:39:00 [facility] 2021-08-02 2021-08-08 [facility] Carmelita Serna [facility] 1.2.840. [id number] Univers 19:07:00 19:39:00 Encounter Kaylee Argueta RENEE [id number] ity of [facility] 4.2.7.2.686 [place] [id number] [address] 2021-07-31 2021-07-31 [facility] [id number] Univers 14:41:00 22:07:00 STEPHANIE saba [facility] 2021-07-31 2021-07-31 Emergency Cacgranger, [facility] [id number] Univers 14:41:00 22:07:00 Stephanie DURAN 350.1.13.10 ity [facility] 4.2.7.2.686 [id number] [address] 2021-07-29 2021-07-29 Emergency X [facility] ERT [id number] Univers 14:49:00 21:33:00 LYNETTE saba [facility] 2021-07-29 2021-07-29 Emergency [facility] [id number] Univers 14:49:00 21:33:00 Lynette DURAN 350.1.13.10 ity [facility] 4.2.7.2.686 [facility] [phone] [address] 2021-07-11 2021-07-11 Laboratory Only, Ang Db Test [facility] 1.2.8 40.114 [id number] Univers 18:00:00 18:15:00 Only Toño Aracelis [facility] [id number] [facility] 4.2.7.2.686 Tim as VICENTA?BLEA [phone] [facility] [address] MED[facility] OFF[facility]ILD[facility] 2021-07-11 2021-07-11 Outpatient Damaso [facility] [id number] Univers 18:00:00 18:00:00 ARACELIS lizet [facility] 2021-07-05 2021-07-05 (TEL) STLMLC STLMLC [id number] Co mmon 00:00:00 00:00:00 [facility] 2021-07-04 2021-07-04 (ESTPT) STLMLC STLMLC [id number] Co mmon 00:00:00 00:00:00 Renaye Spi rit d Patient - [facility] 2021-06-07 2021-06-07 Emergency X [facility] ERT [id number] Univers 15:54:00 18:34:00 JONATHAN saba [facility] 2021-06-07 2021-06-07 Emergency [facility] [id number] Univers 15:54:00 18:34:00 Jonathan DURAN 350.1.13.10 i ty [facility] 4.2.7.2.686 [facility] [phone] [place] [id number] [facility] 2021-04-25 2021-04-25 (TEL) STLMLC STLMLC [id number] Co mmon 00:00:00 00:00:00 [facility] 2021-04-11 2021-04-11 (ESTPT) STLMLC STLMLC [id number] Co mmon 00:00:00 00:00:00 Establishe Spi rit d Patient - [facility] 2021-02-21 2021-02-21 (TEL) STLMLC STLMLC [id number] Co mmon 00:00:00 00:00:00 [facility] 2021-01-31 2021-01-31 (ESTPT) STLMLC STLMLC [id number] Co mmon 00:00:00 00:00:00 Establishe Spi rit d Patient - [facility] 2021-01-03 2021-01-03 OFFICE STLMLC STLMLC [id number] Co mmon 00:00:00 00:00:00 VISIT NEW Spir it PT LEVEL 3 - [facility] 2020-11-20 2020-11-20 Emergency [facility] [id number] 18:22:00 22:21:00 Tonyo Cassandra Duran 350.1.13.10 [place] 4.2.7.2.686 [place] [id number] [facility] 2020-11-20 2020-11-20 Emergency [facility] [id number] [facility] 18:22:00 22:21:00 Kimberlyusho Cassandra Duran 350.1.13.10 ity of [place] 4.2.7.2.686 [facility] [id number] [address] 2020-11-20 2020-11-20 Emergency [facility] E[facility] [id number] [facility] 18:22:00 18:22:00 KIMBERLYUSHO ity [facility] 2019-03-02 2019-03-04 Phone nullFlavo MNA [id number] Memoria 16:11:26 04:59:59 Message r Neurosurger 08 l y [facility] 2019-03-02 2019-03-04 Phone nullFlavo MNA [id number] Memoria 16:11:26 04:59:59 Message r Neurosurger 08 l y [facility] 2019-03-02 2019-03-03 Outpatient MHMISCHER MHMISCHER [id number] 11:11:26 23:59:59 2019-02-10 2019-02-12 Phone nullFlavo MNA [id number] 55 Memoria 16:16:47 04:59:59 Message r Neurosurger 07 l y [facility] 2019-02-10 2019-02-12 Phone nullFlavo MNA [id number] 55 Memoria 16:16:47 04:59:59 Message r Neurosurger 07 l y [facility] 2019-02-10 2019-02-11 Outpatient MHMISCHER MHMISCHER [id number] 11:16:47 23:59:59 2019-01-26 2019-01-28 Phone nullFlavo MNA [id number] 55 Memoria 15:52:03 04:59:59 Message r Neurosurger 06 l y [facility] 2019-01-26 2019-01-28 Phone nullFlavo MNA [id number] Memoria 15:52:03 04:59:59 Message r Neurosurger 06 l y [facility] 2019-01-26 2019-01-27 Outpatient MHMISCHER MHMISCHER [id number] 10:52:03 23:59:59 2019-01-01 2019-01-03 Phone nullFlavo MNA [id number] 55 Memoria 18:55:03 04:59:59 Message r Neurosurger 05 l y [facility] 2019-01-01 2019-01-03 Phone nullFlavo MNA [id number] 55 Memoria 18:55:03 04:59:59 Message r Neurosurger 05 l y [facility] 2019-01-01 2019-01-02 Outpatient MHMISCHER MHMISCHER [id number] 13:55:03 23:59:59 2018-05-22 2018-05-22 Emergency [facility]Fl[facility] [id number] Memoria 10:12:00 18:24:[address] 2018-05-22 2018-05-22 Emergency [facility]Flavo [facility] [id number] Memoria 10:12:00 18:24:[address] 2018-05-22 2018-05-22 Outpatient Neal [facility] [id number] 04:12:00 12:24:00 Zahra Ca 2018-02-18 2018-02-18 Out[facility] 14 [id number] Common 11:15:00 11:15:[address] [facility] 2018-01-27 2018-01-27 Outpatient [facility] 14 [id number] Common 11:30:00 11:30:[address] [facility] 2018-01-03 2018-01-03 Out[facility] 14 [id number] Common 15:41:00 15:41:[address] [facility] 2017-12-23 2017-12-23 Outpatient Suzette [facility] 14 [id number] Common 15:42:00 15:42:[address] [facility] 2017-12-17 2017-12-17 Outpatient Suzette [facility] 13 [id number] Common 11:00:00 11:00:[address] [facility] 2017-11-14 2017-11-19 Inpatient [facility] [id number] Memoria 22:40:00 17:28:[address] 2017-11-14 2017-11-19 Inpatient [facility] [id number] Memoria 22:40:00 17:28:[address] 2017-11-14 2017-11-19 Outpatient Ruth Quesada [facility] [id number] 17:40:00 12:28:00 Percy 23 Results Test Description Test Time Test Comments Results Result Comments Source COMP. METABOLIC PANEL (33383) 2022-11-09 21:13:07 Test Item Value Reference Range Interpretation Comme nts NA (test code = 3016162000) 131 mmol/L 135-145 L K (test code = 5364755765) 4.8 mmol/L 3.5-5.0 CL (test code = 4590902176) 100 mmol/L 98-108 CO2 TOTAL (test code = 8619619803) 22 mmol/L 23-31 L AGAP (test code = 6722817916) 9 2-16 BUN (test code = 9606751940) 14 mg/dL 7-23 GLUCOSE (test code = 1344439619) 396 mg/dL 70-110 H CREATININE (test code = 0.63 mg/dL 0.60-1.25 9139289535) TOTAL BILI (test code = 0.7 mg/dL 0.1-1.7 6788905537) CALCIUM (test code = 8485916369) 9.7 mg/dL 8.6-10.6 T PROTEIN (test code = 6745744816) 7.8 g/dL 6.3-8.2 ALBUMIN (test code = 8483732055) 4.3 g/dL 3.5-5.0 ALK PHOS (test code = 1679084235) 146 U/L 34-122 H ALTv (test code = 1742-6) 21 U/L 5-50 AST(SGOT) (test code = 9205864738) 15 U/L 13-40 eGFR (test code = 5857351333) 143.3 mL/min/1.73m2 ARPITA (test code = ARPITA) [...] tests). Lab Interpretation (test code = Abnormal 45799-1) [facility] acute [facility] WITH [id number] 21:09:28 Test Item Value Reference Range Interpretation Comments WBC (test code = 12.68 See_Comment H [Automated 3881-2) message] The sy stem which generated this result transmitted reference range : 4.20 - 10.70 10*3/?L. The reference range was not used to interpret this result as normal/abnormal . RBC (test code = 5.46 See_Comment [Automated 789-8) message] The sy stem [...] RDW-SD (test code = 39.9 fL 38.5-51.6 36457-5) RDW-CV (test code = 13.1 % 12.1-15.4 788-0) PLT (test code = 444 See_Comment H [Automated 777-3) message] The sy stem which generated this result transmitted reference range : 150 - 328 10*3/ ?L. The reference r boubacar was not used to interpret this result as normal/abnormal . MPV (test code = 10.0 fL 9.8-13.0 80644-0) NRBC/100 WBC (test 0.0 See_Comment [Automat ed code = 7431547951) message] The system which generated this result transmitted reference range : 0.0 - 10.0 /100 WBCs. The refer ence range was not u sed to interpret th is result as normal/abnormal . NRBC x10^3 (test code See_Comment [Auto mated = 9912972687) message] The s ystem which generated this result transmitted reference range : 10*3/?L. The reference range was not used to interpret this result as normal/abnormal . GRAN MAT (NEUT) % 76.0 % (test code = 770-8) IMM GRAN % (test code 0.30 % = 7578875803) LYMPH % (test code = 14.0 % 736-9) MONO % (test code = 7.6 % 5905-5) EOS % (test code = 1.8 % 713-8) BASO % (test code = 0.3 % 706-2) GRAN MAT x10^3(ANC) 9.63 10*3/uL 1.99-6.95 H (test code = 5881177722) IMM GRAN x10^3 (test 0.04 10*3/uL 0.00-0.06 code = 8938390421) LYMPH x10^3 (test code 1.77 10*3/uL 1.09-3.23 = 731-0) MONO x10^3 (test code 0.97 10*3/uL 0.36-1.02 = 742-7) EOS x10^3 (test code = 0.23 10*3/uL 0.06-0.53 711-2) BASO x10^3 (test code 0.04 10*3/uL 0.01-0.09 = 704-7) Lab Interpretation Abnormal (test code = 79152-2) [facility] GLUCOSE(AGE >30DAYS)2022-11-09 20:33:00 Test Item Value Reference Range Interpretation Comments POCT Glu (age>30days) (test code = 429 mg/dL 70-110 A 3342) Lab Interpretation (test code = Abnormal 68168-8) [facility] GLUCOSE (AUTOMATED)2022-10-31 22:47:23 Test Item Value Reference Range Interpretation Comments POCT GLU (test code = 3223484757) 352 mg/dL 70-110 H Lab Interpretation (test code = Abnormal 58263-6) [facility] GLUCOSE (AUTOMATED)2022-10-31 19:38:18 Test Item Value Reference Range Interpretation Comments POCT GLU (test code = 3559282668) 452 mg/dL 70-110 HH Lab Interpretation (test code = Abnormal 00948-6) [facility] GLUCOSE (AUTOMATED)2022-10-22 02:41:30 Test Item Value Reference Range Interpretation Comments POCT GLU (test code = 9212585508) 379 mg/dL 70-110 H Lab Interpretation (test code = Abnormal 36241-2) [facility]. METABOLIC PANEL (57520)2022-10-22 00:29:35 Test Item Value Reference Range Interpretation Comments NA (test code = 133 mmol/L 135-145 L 8136427853) K (test code = 3.5 mmol/L 3.5-5.0 3692761672) CL (test code = 97 mmol/L 98-108 L 7979604297) CO2 TOTAL (test code = 26 mmol/L 23-31 1645268055) AGAP (test code = 10 2-16 2014714498) BUN (test code = 7 mg/dL 7-23 3822566389) GLUCOSE (test code = 468 mg/dL 70-110 HH 0267815009) CREATININE (test code = 0.58 mg/dL 0.60-1.25 L 8946157096) TOTAL BILI (test code = 0.6 mg/dL 0.1-1.4 5545315295) CALCIUM (test code = 9.5 mg/dL 8.6-10.6 5624740310) T PROTEIN (test code = 7.6 g/dL 6.3-8.2 0440416066) ALBUMIN (test code = 4.2 g/dL 3.5-5.0 7083710378) ALK PHOS (test code = 197 U/L 34-122 H 1693345177) ALTv (test code = 56 U/L 5-50 H 1742-6) AST(SGOT) (test code = 16 U/L 13-40 5180667281) eGFR (test code = 157.7 mL/min/1.73m2 1838512890) ARPITA (test code = ARPITA) Association of [...] tests). Lab Interpretation Abnormal (test code = 82115-1) [facility] + Lactic [id number] 23:54:19 Test Item Value Reference Range Interpretation Comments PH (test code = 2) 7.37 7.35-7.45 PCO2 (test code = 47 See_Comment H [Automate d 5566925873) message] The sy stem which generated this result transmitted reference range : 35 - 45 mmHg. The reference range was not used to interpret this result as normal/abnormal . PO2 (test code = 25 See_Comment LL [Automated 9934874410) message] The sy stem which generated this result transmitted reference range : 80 - 100 mmHg. The reference range was not used to interpret this result as normal/abnormal . HCO3 (test code = 26 See_Comment [Automate d 3030338852) message] The sy stem which generated this result transmitted reference range : 22 - 26 mEq/L. The reference range was not used to interpret this result as normal/abnormal . BE (test code = 0.3 See_Comment [Automated 6085009783) message] The sy stem which generated this result transmitted reference range : -3.0 - 3.0 mEq/ L. The reference r boubacar was not used to interpret this result as normal/abnormal . THB (test code = 18.4 g/dL 13.5-18.0 H 3488710124) %O2HB (test code = 51.3 % 94.0-99.0 L 4581413641) %COHB ART (test code = 4.3 % 0.0-1.5 H 3162273423) %METHB ART (test code = 0.0 % 0.4-1.5 L 4203506366) VOL%O2 ART (test code = 13.2 % 15.0-23.0 L 4879089811) NA (test code = 136 mmol/L 135-145 7689796857) K+ (test code = 3.7 mmol/L 3.5-5.0 8899552762) AC CA IONZ (test code = 4.70 mg/dL 4.50-5.30 0217647463) GLUCOSE (test code = 471 mg/dL 70-110 HH 5949541616) LACTIC ACID (test code 2.17 mmol/L 0.50-2.20 = 7014396635) Lab Interpretation Abnormal (test code = 43501-7) [facility] acute hospital WITH [id number] 23:52:19 Test Item Value Reference Range Interpretation Comments WBC (test code = 9.50 See_Comment [Automated 0335-2) message] The sy stem which generated this result transmitted reference range : 4.20 - 10.70 10*3/?L. The reference range was not used to interpret this result as normal/abnormal . RBC (test code = 5.27 See_Comment [Automated 226-8) message] The sy stem which generated this [...] RDW-SD (test code = 41.8 fL 38.5-51.6 72988-4) RDW-CV (test code = 13.2 % 12.1-15.4 788-0) PLT (test code = 369 See_Comment H [Automated 307-3) message] The sy stem which generated this result transmitted reference range : 150 - 328 10*3/ ?L. The reference r boubacar was not used to interpret this result as normal/abnormal . MPV (test code = 10.3 fL 9.8-13.0 12115-3) NRBC/100 WBC (test 0.0 See_Comment [Automat ed code = 0764593169) message] The system which generated this result transmitted reference range : 0.0 - 10.0 /100 WBCs. The refer ence range was not u sed to interpret th is result as normal/abnormal . NRBC x10^3 (test code See_Comment [Auto mated = 3692831157) message] The s ystem which generated this result transmitted reference range : 10*3/?L. The reference range was not used to interpret this result as normal/abnormal . GRAN MAT (NEUT) % 65.5 % (test code = 770-8) IMM GRAN % (test code 0.70 % = 2162611861) LYMPH % (test code = 24.9 % 736-9) MONO % (test code = 7.8 % 5905-5) EOS % (test code = 0.8 % 713-8) BASO % (test code = 0.3 % 706-2) GRAN MAT x10^3(ANC) 6.21 10*3/uL 1.99-6.95 (test code = 2494592453) IMM GRAN x10^3 (test 0.07 10*3/uL 0.00-0.06 H code = 2586015597) LYMPH x10^3 (test code 2.37 10*3/uL 1.09-3.23 = 731-0) MONO x10^3 (test code 0.74 10*3/uL 0.36-1.02 = 742-7) EOS x10^3 (test code = 0.08 10*3/uL 0.06-0.53 711-2) BASO x10^3 (test code 0.03 10*3/uL 0.01-0.09 = 704-7) Lab Interpretation Abnormal (test code = 29058-0) [facility] GLUCOSE (AUTOMATED)2022-10-06 00:15:39 Test Item Value Reference Range Interpretation Comments POCT GLU (test code = 1190100194) 353 mg/dL 70-110 H Lab Interpretation (test code = Abnormal 12956-4) [facility]. METABOLIC PANEL (01642)2022-10-05 22:59:53 Test Item Value Reference Range Interpretation Comments NA (test code = 137 mmol/L 135-145 9327908008) K (test code = 5.1 mmol/L 3.5-5.0 H 8414405881) CL (test code = 101 mmol/L 98-108 5423653178) CO2 TOTAL (test code = 23 mmol/L 23-31 1384242971) AGAP (test code = 13 2-16 4623055334) BUN (test code = 15 mg/dL 7-23 6822815521) GLUCOSE (test code = 455 mg/dL 70-110 HH 9676079066) CREATININE (test code = 0.51 mg/dL 0.60-1.25 L 2617467653) TOTAL BILI (test code = 0.7 mg/dL 0.1-1.8 8073150093) CALCIUM (test code = 9.8 mg/dL 8.6-10.6 5335226429) T PROTEIN (test code = 8.1 g/dL 6.3-8.2 2215867051) ALBUMIN (test code = 4.3 g/dL 3.5-5.0 9568724140) ALK PHOS (test code = 161 U/L 34-122 H 5238607247) ALTv (test code = 34 U/L 5-50 1742-6) AST(SGOT) (test code = 26 U/L 13-40 0147808378) eGFR (test code = 182.9 mL/min/1.73m2 7449952210) ARPITA (test code = ARPITA) Association of [...] tests). Lab Interpretation Abnormal (test code = 35376-7) [facility] 22:52:58 Test Item Value Reference Range Interpretation Comments MAGNESIUM (test code = 0526134770) 1.7 mg/dL 1.7-2.4 Lab Interpretation (test code = Normal 97977-0) [facility] 22:52:38 Test Item Value Reference Range Interpretation Comments LIPASE (test code = 2291345584) 106 U/L 0-220 Lab Interpretation (test code = Normal 61594-7) [facility]22-[facility]-05 22:37:17 Test Item Value Reference Range Interpretation Comments POCT GLU (test code = 1836894155) 425 mg/dL 70-110 H Lab Interpretation (test code = Abnormal 85397-1) [facility] [id number] 22:26:01 Test Item Value Reference Range Interpretation Comments LACTIC ACID (test code = 2.67 mmol/L 0.50-2.20 H 0950966196) Lab Interpretation (test code = Abnormal 07098-2) [facility] acute hospital WITH [id number] 22:24:50 Test Item Value Reference Range Interpretation Comments WBC (test code = 12.05 See_Comment H [Automated 6690-2) message] The sy stem which generated this result transmitted reference range : 4.20 - 10.70 10*3/?L. The reference range was not used to interpret this result as normal/abnormal . RBC (test code = 5.14 See_Comment [Automated 789-8) message] The sy stem [...] RDW-SD (test code = 45.1 fL 38.5-51.6 60230-9) RDW-CV (test code = 14.0 % 12.1-15.4 788-0) PLT (test code = 518 See_Comment H [Automated 777-3) message] The sy stem which generated this result transmitted reference range : 150 - 328 10*3/ ?L. The reference r boubacar was not used to interpret this result as normal/abnormal . MPV (test code = 10.2 fL 9.8-13.0 85157-2) NRBC/100 WBC (test 0.0 See_Comment [Automat ed code = 9457305033) message] The system which generated this result transmitted reference range : 0.0 - 10.0 /100 WBCs. The refer ence range was not u sed to interpret th is result as normal/abnormal . NRBC x10^3 (test code See_Comment [Auto mated = 4076889448) message] The s ystem which generated this result transmitted reference range : 10*3/?L. The reference range was not used to interpret this result as normal/abnormal . GRAN MAT (NEUT) % 76.2 % (test code = 770-8) IMM GRAN % (test code 0.50 % = 2075753221) LYMPH % (test code = 16.8 % 736-9) MONO % (test code = 5.2 % 5905-5) EOS % (test code = 1.0 % 713-8) BASO % (test code = 0.3 % 706-2) GRAN MAT x10^3(ANC) 9.18 10*3/uL 1.99-6.95 H (test code = 5218762297) IMM GRAN x10^3 (test 0.06 10*3/uL 0.00-0.06 code = 8272304155) LYMPH x10^3 (test code 2.02 10*3/uL 1.09-3.23 = 731-0) MONO x10^3 (test code 0.63 10*3/uL 0.36-1.02 = 742-7) EOS x10^3 (test code = 0.12 10*3/uL 0.06-0.53 711-2) BASO x10^3 (test code 0.04 10*3/uL 0.01-0.09 = 704-7) Lab Interpretation Abnormal (test code = 40544-6) [facility] GLUCOSE (AUTOMATED)2022-09-06 18:23:19 Test Item Value Reference Range Interpretation Comments POCT GLU (test code = 7225568991) 352 mg/dL 70-110 H Lab Interpretation (test code = Abnormal 56065-8) [facility] GLUCOSE (AUTOMATED)2022-09-06 18:23:19 Test Item Value Reference Range Interpretation Comments POCT GLU (test code = 8492807311) 352 mg/dL 70-110 H Lab Interpretation (test code = Abnormal 90497-0) [facility] GLUCOSE (AUTOMATED)2022-09-06 13:43:13 Test Item Value Reference Range Interpretation Comments POCT GLU (test code = 9515207263) 293 mg/dL 70-110 H Lab Interpretation (test code = Abnormal 27368-2) [facility] GLUCOSE (AUTOMATED)2022-09-06 13:43:13 Test Item Value Reference Range Interpretation Comments POCT GLU (test code = 4662577609) 293 mg/dL 70-110 H Lab Interpretation (test code = Abnormal 55804-8) [facility] GLUCOSE (AUTOMATED)2022-09-06 02:50:04 Test Item Value Reference Range Interpretation Comments POCT GLU (test code = 7863735029) 259 mg/dL 70-110 H Lab Interpretation (test code = Abnormal 81500-6) [facility] GLUCOSE (AUTOMATED)2022-09-06 02:50:04 Test Item Value Reference Range Interpretation Comments POCT GLU (test code = 6144134967) 259 mg/dL 70-110 H Lab Interpretation (test code = Abnormal 76198-5) [facility] GLUCOSE (AUTOMATED)2022-09-05 22:58:25 Test Item Value Reference Range Interpretation Comments POCT GLU (test code = 2826914715) 170 mg/dL 70-110 H Lab Interpretation (test code = Abnormal 10974-5) [facility] GLUCOSE (AUTOMATED)2022-09-05 22:58:25 Test Item Value Reference Range Interpretation Comments POCT GLU (test code = 7658300914) 170 mg/dL 70-110 H Lab Interpretation (test code = Abnormal 99837-3) [facility] GLUCOSE (AUTOMATED)2022-09-05 21:27:00 Test Item Value Reference Range Interpretation Comments POCT GLU (test code = 3684351797) 179 mg/dL 70-110 H Lab Interpretation (test code = Abnormal 88709-6) [facility] GLUCOSE (AUTOMATED)2022-09-05 21:27:00 Test Item Value Reference Range Interpretation Comments POCT GLU (test code = 4768790260) 179 mg/dL 70-110 H Lab Interpretation (test code = Abnormal 64883-3) [facility] GLUCOSE (AUTOMATED)2022-09-05 18:18:50 Test Item Value Reference Range Interpretation Comments POCT GLU (test code = 3038923377) 247 mg/dL 70-110 H Lab Interpretation (test code = Abnormal 29649-9) [facility] GLUCOSE (AUTOMATED)2022-09-05 18:18:50 Test Item Value Reference Range Interpretation Comments POCT GLU (test code = 8524261447) 247 mg/dL 70-110 H Lab Interpretation (test code = Abnormal 73110-0) [facility] GLUCOSE (AUTOMATED)2022-09-05 15:21:08 Test Item Value Reference Range Interpretation Comments POCT GLU (test code = 1519675584) 235 mg/dL 70-110 H Lab Interpretation (test code = Abnormal 69401-5) [facility] GLUCOSE (AUTOMATED)2022-09-05 15:21:08 Test Item Value Reference Range Interpretation Comments POCT GLU (test code = 4523485768) 235 mg/dL 70-110 H Lab Interpretation (test code = Abnormal 99866-6) [facility] GLUCOSE (AUTOMATED)2022-09-05 03:11:07 Test Item Value Reference Range Interpretation Comments POCT GLU (test code = 3189374613) 263 mg/dL 70-110 H Lab Interpretation (test code = Abnormal 47066-1) [facility] GLUCOSE (AUTOMATED)2022-09-05 03:11:07 Test Item Value Reference Range Interpretation Comments POCT GLU (test code = 9446808229) 263 mg/dL 70-110 H Lab Interpretation (test code = Abnormal 93104-7) [facility] GLUCOSE (AUTOMATED)2022-09-04 22:43:48 Test Item Value Reference Range Interpretation Comments POCT GLU (test code = 6256294607) 262 mg/dL 70-110 H Lab Interpretation (test code = Abnormal 15742-8) [facility] GLUCOSE (AUTOMATED)2022-09-04 22:43:48 Test Item Value Reference Range Interpretation Comments POCT GLU (test code = 7662117882) 262 mg/dL 70-110 H Lab Interpretation (test code = Abnormal 81457-6) [facility] GLUCOSE (AUTOMATED)2022-09-04 17:36:05 Test Item Value Reference Range Interpretation Comments POCT GLU (test code = 9831326589) 365 mg/dL 70-110 H Lab Interpretation (test code = Abnormal 64070-3) [facility] GLUCOSE (AUTOMATED)2022-09-04 17:36:05 Test Item Value Reference Range Interpretation Comments POCT GLU (test code = 6832896488) 365 mg/dL 70-110 H Lab Interpretation (test code = Abnormal 21847-1) [facility] GLUCOSE (AUTOMATED)2022-09-04 16:43:12 Test Item Value Reference Range Interpretation Comments POCT GLU (test code = 7935465651) 408 mg/dL 70-110 H Lab Interpretation (test code = Abnormal 51278-0) [facility] GLUCOSE (AUTOMATED)2022-09-04 16:43:12 Test Item Value Reference Range Interpretation Comments POCT GLU (test code = 6298768772) 408 mg/dL 70-110 H Lab Interpretation (test code = Abnormal 08802-3) [facility] GLUCOSE (AUTOMATED)2022-09-04 13:20:30 Test Item Value Reference Range Interpretation Comments POCT GLU (test code = 7240406744) 359 mg/dL 70-110 H Lab Interpretation (test code = Abnormal 56789-4) [facility] GLUCOSE (AUTOMATED)2022-09-04 13:20:30 Test Item Value Reference Range Interpretation Comments POCT GLU (test code = 6873632727) 359 mg/dL 70-110 H Lab Interpretation (test code = Abnormal 82373-1) [facility] GLUCOSE (AUTOMATED)2022-09-04 08:27:11 Test Item Value Reference Range Interpretation Comments POCT GLU (test code = 7394118867) 312 mg/dL 70-110 H Lab Interpretation (test code = Abnormal 03492-2) [facility] GLUCOSE (AUTOMATED)2022-09-04 08:27:11 Test Item Value Reference Range Interpretation Comments POCT GLU (test code = 1583457096) 312 mg/dL 70-110 H Lab Interpretation (test code = Abnormal 64205-4) [facility] GLUCOSE (AUTOMATED)2022-09-04 06:47:03 Test Item Value Reference Range Interpretation Comments POCT GLU (test code = 3525230138) 326 mg/dL 70-110 H Lab Interpretation (test code = Abnormal 11544-1) [facility] GLUCOSE (AUTOMATED)2022-09-04 06:47:03 Test Item Value Reference Range Interpretation Comments POCT GLU (test code = 9648196514) 326 mg/dL 70-110 H Lab Interpretation (test code = Abnormal 29187-1) [facility] (NA, K, CL, CO2, GLUCOSE, BUN, CREATININE, CA)2022-09-04 06:26:05 Test Item Value Reference Range Interpretation Comments NA (test code = 132 mmol/L 135-145 L 0642199115) K (test code = 4.4 mmol/L 3.5-5.0 5126474449) CL (test code = 101 mmol/L 98-108 4358210004) CO2 TOTAL (test code = 17 mmol/L 23-31 L 0924209261) AGAP (test code = 14 2-16 2344895325) BUN (test code = 11 mg/dL 7-23 6827216825) GLUCOSE (test code = 346 mg/dL 70-110 H 6556825623) CREATININE (test code = 0.54 mg/dL 0.60-1.25 L 5549118991) CALCIUM (test code = 8.5 mg/dL 8.6-10.6 L 1114680156) eGFR (test code = 171.2 mL/min/1.73m2 7590396301) ARPITA (test code = ARPITA) Association of [...] tests). Lab Interpretation Abnormal (test code = 94430-9) [facility] METABOLIC PANEL (NA, K, CL, CO2, GLUCOSE, BUN, CREATININE, CA)2022-09-04 06:26:05 Test Item Value Reference Range Interpretation Comments NA (test code = 132 mmol/L 135-145 L [id number]) K (test code = 4.4 mmol/L 3.5-5.0 4635527389) CL (test code = 101 mmol/L 98-108 6565076607) CO2 TOTAL (test code = 17 mmol/L 23-31 L 8523366639) AGAP (test code = 14 2-16 [id number]) BUN (test code = 11 mg/dL 7-23 [id number]) GLUCOSE (test code = 346 mg/dL 70-110 H 9724146700) CREATININE (test code = 0.54 mg/dL 0.60-1.25 L 9514774367) CALCIUM (test code = 8.5 mg/dL 8.6-10.6 L 1046827911) eGFR (test code = 171.2 mL/min/1.73m2 7974229611) ARPITA (test code = ARPITA) Association of [...] tests). Lab Interpretation Abnormal (test code = 21610-1) [facility] GLUCOSE (AUTOMATED)2022-09-04 05:38:22 Test Item Value Reference Range Interpretation Comments POCT GLU (test code = 0379972453) 414 mg/dL 70-110 H Lab Interpretation (test code = Abnormal 64316-5) [facility] GLUCOSE (AUTOMATED)2022-09-04 05:38:22 Test Item Value Reference Range Interpretation Comments POCT GLU (test code = 5097602097) 414 mg/dL 70-110 H Lab Interpretation (test code = Abnormal 92401-6) [facility] METABOLIC PANEL (NA, K, CL, CO2, GLUCOSE, BUN, CREATININE, CA)2022-09-04 03:58:07 Test Item Value Reference Range Interpretation Comments NA (test code = 133 mmol/L 135-145 L 2426139702) K (test code = 4.7 mmol/L 3.5-5.0 6736122404) CL (test code = 100 mmol/L 98-108 3886476621) CO2 TOTAL (test code = 16 mmol/L 23-31 L 3810689509) AGAP (test code = 17 2-16 H 9875628440) BUN (test code = 12 mg/dL 7-23 7233995090) GLUCOSE (test code = 407 mg/dL 70-110 H 3375865714) CREATININE (test code = 0.55 mg/dL 0.60-1.25 L 1553248451) CALCIUM (test code = 9.2 mg/dL 8.6-10.6 1741762347) eGFR (test code = 167.6 mL/min/1.73m2 0985828437) ARPITA (test code = ARPITA) Association of [...] tests). Lab Interpretation Abnormal (test code = 33971-0) [facility] METABOLIC PANEL (NA, K, CL, CO2, GLUCOSE, BUN, CREATININE, CA)2022-09-04 03:58:07 Test Item Value Reference Range Interpretation Comments NA (test code = 133 mmol/L 135-145 L 0630321139) K (test code = 4.7 mmol/L 3.5-5.0 1526296870) CL (test code = 100 mmol/L 98-108 1312093378) CO2 TOTAL (test code = 16 mmol/L 23-31 L 6925929766) AGAP (test code = 17 2-16 H 6401720879) BUN (test code = 12 mg/dL 7-23 8418091990) GLUCOSE (test code = 407 mg/dL 70-110 H 5574042084) CREATININE (test code = 0.55 mg/dL 0.60-1.25 L 3002582193) CALCIUM (test code = 9.2 mg/dL 8.6-10.6 2210397822) eGFR (test code = 167.6 mL/min/1.73m2 8640309703) ARPITA (test code = ARPITA) Association of [...] tests). Lab Interpretation Abnormal (test code = 77246-1) [facility] WITH [id number] 03:21:04 Test Item Value Reference Range Interpretation Comments WBC (test code = 12.21 See_Comment H [Automated 0790-2) message] The sy stem which generated this result transmitted reference range : 4.20 - 10.70 10*3/?L. The reference range was not used to interpret this result as normal/abnormal . RBC (test code = 5.59 See_Comment H [Automated 885-8) message] The sy stem which generated this [...] RDW-SD (test code = 45.5 fL 38.5-51.6 83128-8) RDW-CV (test code = 15.1 % 12.1-15.4 788-0) PLT (test code = 344 See_Comment H [Automated 777-3) message] The sy stem which generated this result transmitted reference range : 150 - 328 10*3/ ?L. The reference r boubacar was not used to interpret this result as normal/abnormal . MPV (test code = 10.5 fL 9.8-13.0 62756-1) NRBC/100 WBC (test 0.0 See_Comment [Automat ed code = 6894242868) message] The system which generated this result transmitted reference range : 0.0 - 10.0 /100 WBCs. The refer ence range was not u sed to interpret th is result as normal/abnormal . NRBC x10^3 (test code See_Comment [Auto mated = 3547496802) message] The s ystem which generated this result transmitted reference range : 10*3/?L. The reference range was not used to interpret this result as normal/abnormal . GRAN MAT (NEUT) % 73.0 % (test code = 770-8) IMM GRAN % (test code 0.70 % = 3576660790) LYMPH % (test code = 19.6 % 736-9) MONO % (test code = 6.1 % 5905-5) EOS % (test code = 0.3 % 713-8) BASO % (test code = 0.3 % 706-2) GRAN MAT x10^3(ANC) 8.91 10*3/uL 1.99-6.95 H (test code = 0936580426) IMM GRAN x10^3 (test 0.09 10*3/uL 0.00-0.06 H code = 4690847834) LYMPH x10^3 (test code 2.39 10*3/uL 1.09-3.23 = 731-0) MONO x10^3 (test code 0.74 10*3/uL 0.36-1.02 = 742-7) EOS x10^3 (test code = 0.04 10*3/uL 0.06-0.53 L 711-2) BASO x10^3 (test code 0.04 10*3/uL 0.01-0.09 = 704-7) Lab Interpretation Abnormal (test code = 06947-0) [facility] WITH [id number] 03:21:04 Test Item Value Reference Range Interpretation [...] RDW-SD (test code = 45.5 fL 38.5-51.6 70787-2) RDW-CV (test code = 15.1 % 12.1-15.4 788-0) PLT (test code = 344 See_Comment H [Automated 777-3) message] The sy stem which generated this result transmitted reference range : 150 - 328 10*3/ ?L. The reference r boubacar was not used to interpret this result as normal/abnormal . MPV (test code = 10.5 fL 9.8-13.0 41169-2) NRBC/100 WBC (test 0.0 See_Comment [Automat ed code = 4958110082) message] The system which generated this result transmitted reference range : 0.0 - 10.0 /100 WBCs. The refer ence range was not u sed to interpret th is result as normal/abnormal . NRBC x10^3 (test code See_Comment [Auto mated = 1826863589) message] The s ystem which generated this result transmitted reference range : 10*3/?L. The reference range was not used to interpret this result as normal/abnormal . GRAN MAT (NEUT) % 73.0 % (test code = 770-8) IMM GRAN % (test code 0.70 % = 9925349664) LYMPH % (test code = 19.6 % 736-9) MONO % (test code = 6.1 % 5905-5) EOS % (test code = 0.3 % 713-8) BASO % (test code = 0.3 % 706-2) GRAN MAT x10^3(ANC) 8.91 10*3/uL 1.99-6.95 H (test code = 3522718363) IMM GRAN x10^3 (test 0.09 10*3/uL 0.00-0.06 H code = 0906689580) LYMPH x10^3 (test code 2.39 10*3/uL 1.09-3.23 = 731-0) MONO x10^3 (test code 0.74 10*3/uL 0.36-1.02 = 742-7) EOS x10^3 (test code = 0.04 10*3/uL 0.06-0.53 L 711-2) BASO x10^3 (test code 0.04 10*3/uL 0.01-0.09 = 704-7) Lab Interpretation Abnormal (test code = 23823-6) [facility] GLUCOSE (AUTOMATED)2022-08-25 02:39:28 Test Item Value Reference Range Interpretation Comments POCT GLU (test code = 0593652764) 438 mg/dL 70-110 H Lab Interpretation (test code = Abnormal 77280-3) [facility] METABOLIC PANEL (05158)2022-08-25 01:00:03 Test Item Value Reference Range Interpretation Comments NA (test code = 136 mmol/L 135-145 0872850948) K (test code = 3.8 mmol/L 3.5-5.0 2475990073) CL (test code = 104 mmol/L 98-108 5004455863) CO2 TOTAL (test code = 23 mmol/L 23-31 3210870615) AGAP (test code = 9 2-16 5451697870) BUN (test code = 6 mg/dL 7-23 L 0060910330) GLUCOSE (test code = 645 mg/dL 70-110 HH 1427561178) CREATININE (test code = 0.68 mg/dL 0.60-1.25 1397810943) TOTAL BILI (test code = 1.0 mg/dL 0.1-1.2 7973655456) CALCIUM (test code = 8.5 mg/dL 8.6-10.6 L 5216796528) T PROTEIN (test code = 6.8 g/dL 6.3-8.2 0140191658) ALBUMIN (test code = 3.5 g/dL 3.5-5.0 8576181019) ALK PHOS (test code = 201 U/L 34-122 H 7052683654) ALTv (test code = 60 U/L 5-50 H 1742-6) AST(SGOT) (test code = 23 U/L 13-40 6259348354) eGFR (test code = 131.2 mL/min/1.73m2 8229776856) ARPITA (test code = ARPITA) Association of [...] tests). Lab Interpretation Abnormal (test code = 18213-9) [facility] Test Item Value Reference Range Interpretation Comments LIPASE (test code = 0814436469) 141 U/L 0-220 Lab Interpretation (test code = Normal 48422-3) [facility] [id number] 00:01:30 Test Item Value Reference Range Interpretation Comments WBC (test code = 8.06 See_Comment [Automated 4090-2) message] The sy stem which generated this result transmitted reference range : 4.20 - 10.70 10*3/?L. The reference range was not used to interpret this result as normal/abnormal . RBC (test code = 5.04 See_Comment [Automated 489-8) message] The sy stem [...] RDW-SD (test code = 46.7 fL 38.5-51.6 64196-0) RDW-CV (test code = 15.5 % 12.1-15.4 H 788-0) PLT (test code = 386 See_Comment H [Automated 777-3) message] The sy stem which generated this result transmitted reference range : 150 - 328 10*3/ ?L. The reference r boubacar was not used to interpret this result as normal/abnormal . MPV (test code = 10.7 fL 9.8-13.0 19095-7) NRBC/100 WBC (test 0.0 See_Comment [Automat ed code = 0488875937) message] The system which generated this result transmitted reference range : 0.0 - 10.0 /100 WBCs. The refer ence range was not u sed to interpret th is result as normal/abnormal . NRBC x10^3 (test code See_Comment [Auto mated = 4218732747) message] The s ystem which generated this result transmitted reference range : 10*3/?L. The reference range was not used to interpret this result as normal/abnormal . GRAN MAT (NEUT) % 72.5 % (test code = 770-8) IMM GRAN % (test code 0.40 % = 5522113632) LYMPH % (test code = 15.0 % 736-9) MONO % (test code = 9.1 % 5905-5) EOS % (test code = 2.5 % 713-8) BASO % (test code = 0.5 % 706-2) GRAN MAT x10^3(ANC) 5.85 10*3/uL 1.99-6.95 (test code = 3575392932) IMM GRAN x10^3 (test 0.03 10*3/uL 0.00-0.06 code = 2454967517) LYMPH x10^3 (test code 1.21 10*3/uL 1.09-3.23 = 731-0) MONO x10^3 (test code 0.73 10*3/uL 0.36-1.02 = 742-7) EOS x10^3 (test code = 0.20 10*3/uL 0.06-0.53 711-2) BASO x10^3 (test code 0.04 10*3/uL 0.01-0.09 = 704-7) Lab Interpretation Abnormal (test code = 65288-2) [facility] GLUCOSE (AUTOMATED)2022-08-23 23:09:42 Test Item Value Reference Range Interpretation Comments POCT GLU (test code = 8198086647) 367 mg/dL 70-110 H Lab Interpretation (test code = Abnormal 13189-0) [facility]07864[facility]22-08-23 22:58:25 Test Item Value Reference Range Interpretation Comments NA (test code = 143 mmol/L 135-145 4651005871) K (test code = 4.2 mmol/L 3.5-5.0 0019503176) CL (test code = 106 mmol/L 98-108 8675094438) CO2 TOTAL (test code = 18 mmol/L 23-31 L 7901289076) AGAP (test code = 19 2-16 H 3553631902) BUN (test code = 7 mg/dL 7-23 7169005984) GLUCOSE (test code = 542 mg/dL 70-110 HH 0911643464) CREATININE (test code = 0.67 mg/dL 0.60-1.25 5069994591) TOTAL BILI (test code = 1.5 mg/dL 0.1-1.1 H 4664139076) CALCIUM (test code = 9.5 mg/dL 8.6-10.6 3783129129) T PROTEIN (test code = 7.9 g/dL 6.3-8.2 7263691043) ALBUMIN (test code = 4.2 g/dL 3.5-5.0 1526804729) ALK PHOS (test code = 233 U/L 34-122 H 7402650613) ALTv (test code = 86 U/L 5-50 H 1742-6) AST(SGOT) (test code = 25 U/L 13-40 7153581421) eGFR (test code = 133.5 mL/min/1.73m2 2136357957) ARPITA (test code = ARPITA) Association of [...] tests). Lab Interpretation Abnormal (test code = 38212-6) [facility]17 Test Item Value Reference Range Interpretation Comments MAGNESIUM (test code = 4051570352) 1.7 mg/dL 1.7-2.4 Lab Interpretation (test code = Normal 19503-6) [facility] WITH [id number] 22:28:16 Test Item Value Reference Range Interpretation Comments WBC (test code = 8.36 See_Comment [Automated 8437-2) message] The sy stem which generated this result transmitted reference range : 4.20 - 10.70 10*3/?L. The reference range was not used to interpret this result as normal/abnormal . RBC (test code = 5.74 See_Comment H [Automated 833-8) message] The sy stem which generated this [...] RDW-SD (test code = 45.1 fL 38.5-51.6 78404-8) RDW-CV (test code = 15.8 % 12.1-15.4 H 788-0) PLT (test code = 475 See_Comment H [Automated 777-3) message] The sy stem which generated this result transmitted reference range : 150 - 328 10*3/ ?L. The reference r boubacar was not used to interpret this result as normal/abnormal . MPV (test code = 10.7 fL 9.8-13.0 91372-3) NRBC/100 WBC (test 0.0 See_Comment [Automat ed code = 4494790553) message] The system which generated this result transmitted reference range : 0.0 - 10.0 /100 WBCs. The refer ence range was not u sed to interpret th is result as normal/abnormal . NRBC x10^3 (test code See_Comment [Auto mated = 0808157850) message] The s ystem which generated this result transmitted reference range : 10*3/?L. The reference range was not used to interpret this result as normal/abnormal . GRAN MAT (NEUT) % 70.8 % (test code = 770-8) IMM GRAN % (test code 1.00 % = 5264124611) LYMPH % (test code = 18.3 % 736-9) MONO % (test code = 7.7 % 5905-5) EOS % (test code = 1.8 % 713-8) BASO % (test code = 0.4 % 706-2) GRAN MAT x10^3(ANC) 5.93 10*3/uL 1.99-6.95 (test code = 8427604873) IMM GRAN x10^3 (test 0.08 10*3/uL 0.00-0.06 H code = 7787496024) LYMPH x10^3 (test code 1.53 10*3/uL 1.09-3.23 = 731-0) MONO x10^3 (test code 0.64 10*3/uL 0.36-1.02 = 742-7) EOS x10^3 (test code = 0.15 10*3/uL 0.06-0.53 711-2) BASO x10^3 (test code 0.03 10*3/uL 0.01-0.09 = 704-7) Lab Interpretation Abnormal (test code = 82212-2) [facility] GLUCOSE (AUTOMATED)2022-08-23 22:22:13 Test Item Value Reference Range Interpretation Comments POCT GLU (test code = 6097105679) 515 mg/dL 70-110 HH Lab Interpretation (test code = Abnormal 28724-0) [facility] GLUCOSE (AUTOMATED)2022-08-23 21:18:09 Test Item Value Reference Range Interpretation Comments POCT GLU (test code = 8924943022) 557 mg/dL 70-110 HH Lab Interpretation (test code = Abnormal 02342-3) [facility] GLUCOSE (AUTOMATED)2022-08-16 23:58:14 Test Item Value Reference Range Interpretation Comments POCT GLU (test code = 7665092997) 235 mg/dL 70-110 H Lab Interpretation (test code = Abnormal 73633-9) [facility] GLUCOSE (AUTOMATED)2022-08-16 17:36:06 Test Item Value Reference Range Interpretation Comments POCT GLU (test code = 1639019691) 276 mg/dL 70-110 H Lab Interpretation (test code = Abnormal 29046-4) [facility] GLUCOSE (AUTOMATED)2022-08-16 14:01:35 Test Item Value Reference Range Interpretation Comments POCT GLU (test code = 8412002775) 306 mg/dL 70-110 H Lab Interpretation (test code = Abnormal 31919-6) [facility] GLUCOSE (AUTOMATED)2022-08-16 14:01:35 Test Item Value Reference Range Interpretation Comments POCT GLU (test code = 4055833634) 321 mg/dL 70-110 H Lab Interpretation (test code = Abnormal 69028-4) [facility] GLUCOSE (AUTOMATED)2022-08-16 02:22:30 Test Item Value Reference Range Interpretation Comments POCT GLU (test code = 9908330283) 323 mg/dL 70-110 H Lab Interpretation (test code = Abnormal 02941-9) [facility] GLUCOSE (AUTOMATED)2022-08-16 01:14:46 Test Item Value Reference Range Interpretation Comments POCT GLU (test code = 5896062717) 311 mg/dL 70-110 H Lab Interpretation (test code = Abnormal 84543-6) [facility] GLUCOSE (AUTOMATED)2022-08-15 23:47:24 Test Item Value Reference Range Interpretation Comments POCT GLU (test code = 7623427556) 354 mg/dL 70-110 H Lab Interpretation (test code = Abnormal 86624-3) [facility] GLUCOSE (AUTOMATED)2022-08-15 22:23:59 Test Item Value Reference Range Interpretation Comments POCT GLU (test code = 2481977155) 398 mg/dL 70-110 H Lab Interpretation (test code = Abnormal 39693-8) [facility] HEMOGLOBIN A1C [id number] 19:04:00 Test Item Value Reference Range Interpretation Comments POCT HBA1C (test code = 4548-4) 6.8 % 4-6 A Lab Interpretation (test code = Abnormal 67983-7) [facility] HEMOGLOBIN A1C [id number] 19:04:00 Test Item Value Reference Range Interpretation Comments POCT HBA1C (test code = 4548-4) 6.8 % 4-6 A Lab Interpretation (test code = Abnormal 20377-3) [facility] HEMOGLOBIN A1C [id number] 19:04:00 Test Item Value Reference Range Interpretation Comments POCT HBA1C (test code = 4548-4) 6.8 % 4-6 A Lab Interpretation (test code = Abnormal 87698-2) [facility] GLUCOSE (AUTOMATED)2022-05-21 23:04:10 Test Item Value Reference Range Interpretation Comments POCT GLU (test code = 2409134014) 142 mg/dL 70-110 H Lab Interpretation (test code = Abnormal 88445-4) [facility] GLUCOSE (AUTOMATED)2022-05-21 18:07:54 Test Item Value Reference Range Interpretation Comments POCT GLU (test code = 0583563996) 198 mg/dL 70-110 H Lab Interpretation (test code = Abnormal 16331-4) [facility] GLUCOSE (AUTOMATED)2022-05-21 13:54:10 Test Item Value Reference Range Interpretation Comments POCT GLU (test code = 9638670197) 141 mg/dL 70-110 H Lab Interpretation (test code = Abnormal 35301-2) [facility] 02:47:37 Test Item Value Reference Range Interpretation Comments POCT GLU (test code = 9263337028) 150 mg/dL 70-110 H Lab Interpretation (test code = Abnormal 02618-2) [facility] METABOLIC PANEL (39950)2022-05-20 23:49:17 Test Item Value Reference Range Interpretation Comments NA (test code = 139 mmol/L 135-145 2320909121) K (test code = 4.5 mmol/L 3.5-5.0 5508943181) CL (test code = 104 mmol/L 98-108 4022306527) CO2 TOTAL (test code = 25 mmol/L 23-31 7869505717) AGAP (test code = 2-16 7818915582) BUN (test code = 13 mg/dL 7-23 7744183339) GLUCOSE (test code = 228 mg/dL 70-110 H 3338741950) CREATININE (test code = 0.56 mg/dL 0.60-1.25 L 4503892799) TOTAL BILI (test code = 0.6 mg/dL 0.1-1.0 0594027126) CALCIUM (test code = 9.7 mg/dL 8.6-10.6 2631994453) T PROTEIN (test code = 7.8 g/dL 6.3-8.2 7487926373) ALBUMIN (test code = 4.4 g/dL 3.5-5.0 6133860035) ALK PHOS (test code = 132 U/L 34-122 H 7863088730) ALTv (test code = 31 U/L 5-50 1742-6) AST(SGOT) (test code = 20 U/L 13-40 9021048034) eGFR (test code = mL/min/1.73m2 0104554995) ARPITA (test code = ARPITA) Association of [...] tests). Lab Interpretation Abnormal (test code = 87482-4) [facility] WITH [id number] 23:45:35 Test Item Value Reference Range Interpretation Comments WBC (test code = See_Comment [Automated 9388-2) message] The sy stem which generated this result transmitted reference range : 4.20 - 10.70 10*3/?L. The reference range was not used to interpret this result as normal/abnormal . RBC (test code = See_Comment H [Automated 259-8) message] The sy stem which [...] RDW-SD (test code = 45.1 fL 38.5-51.6 93330-3) RDW-CV (test code = 14.9 % 12.1-15.4 788-0) PLT (test code = See_Comment [Automated 777-3) message] The sy stem which generated this result transmitted reference range : 150 - 328 10*3/ ?L. The reference r boubacar was not used to interpret this result as normal/abnormal . MPV (test code = 10.9 fL 9.8-13.0 79089-1) IPF % (test code = 9.9 % 1.2-10.7 Platelet count 7602487033) measured by fluorescence method. NRBC/100 WBC (test See_Comment [Automat ed code = 2139791992) message] The system which generated this result transmitted reference range : 0.0 - 10.0 /100 WBCs. The refer ence range was not u sed to interpret th is result as normal/abnormal . NRBC x10^3 (test code See_Comment [Auto mated = 8875346725) message] The s ystem which generated this result transmitted reference range : 10*3/?L. The reference range was not used to interpret this result as normal/abnormal . GRAN MAT (NEUT) % 65.4 % (test code = 770-8) IMM GRAN % (test code 0.60 % = 1859699371) LYMPH % (test code = 23.1 % 736-9) MONO % (test code = 7.9 % 5905-5) EOS % (test code = 2.6 % 713-8) BASO % (test code = 0.4 % 706-2) GRAN MAT x10^3(ANC) 6.34 10*3/uL 1.99-6.95 (test code = 4005350743) IMM GRAN x10^3 (test 0.06 10*3/uL 0.00-0.06 code = 5418739500) LYMPH x10^3 (test code 2.24 10*3/uL 1.09-3.23 = 731-0) MONO x10^3 (test code 0.77 10*3/uL 0.36-1.02 = 742-7) EOS x10^3 (test code = 0.25 10*3/uL 0.06-0.53 711-2) BASO x10^3 (test code 0.04 10*3/uL 0.01-0.09 = 704-7) Lab Interpretation Abnormal (test code = 41060-5) [facility] [id number] 23:16:59 Test Item Value Reference Range Interpretation Comments LACTIC ACID (test code = 3.00 mmol/L 0.50-2.20 H 9730500294) Lab Interpretation (test code = Abnormal 33208-7) [facility] acute [facility] WITH [id number] 01:28:46 Test Item Value Reference Range Interpretation [...] RDW-SD (test code = 47.6 fL 38.5-51.6 88517-9) RDW-CV (test code = 15.4 % 12.1-15.4 788-0) PLT (test code = See_Comment L [Automated 777-3) message] The sy stem which generated this result transmitted reference range : 150 - 328 10*3/ ?L. The reference r boubacar was not used to interpret this result as normal/abnormal . MPV (test code = 10.6 fL 9.8-13.0 15857-1) NRBC/100 WBC (test See_Comment [Automat ed code = 5263119824) message] The system which generated this result transmitted reference range : 0.0 - 10.0 /100 WBCs. The refer ence range was not u sed to interpret th is result as normal/abnormal . NRBC x10^3 (test code See_Comment [Auto mated = 1828616106) message] The s ystem which generated this result transmitted reference range : 10*3/?L. The reference range was not used to interpret this result as normal/abnormal . GRAN MAT (NEUT) % 70.8 % (test code = 770-8) IMM GRAN % (test code 0.50 % = 7096740357) LYMPH % (test code = 20.4 % 736-9) MONO % (test code = 5.9 % 5905-5) EOS % (test code = 2.0 % 713-8) BASO % (test code = 0.4 % 706-2) GRAN MAT x10^3(ANC) 7.23 10*3/uL 1.99-6.95 H (test code = 3335723311) IMM GRAN x10^3 (test 0.05 10*3/uL 0.00-0.06 code = 6994267173) LYMPH x10^3 (test code 2.08 10*3/uL 1.09-3.23 = 731-0) MONO x10^3 (test code 0.60 10*3/uL 0.36-1.02 = 742-7) EOS x10^3 (test code = 0.20 10*3/uL 0.06-0.53 711-2) BASO x10^3 (test code 0.04 10*3/uL 0.01-0.09 = 704-7) Lab Interpretation Abnormal (test code = 64692-2) [facility] (50804[facility]2022-[facility]-13 01:23:44 Test Item Value Reference Range Interpretation Comments NA (test code = 141 mmol/L 135-145 5882883864) K (test code = 4.7 mmol/L 3.5-5.0 4491770100) CL (test code = 107 mmol/L 98-108 6090064556) CO2 TOTAL (test code = 23 mmol/L 23-31 4845993173) AGAP (test code = 2-16 0940619704) BUN (test code = 16 mg/dL 7-23 4657682638) GLUCOSE (test code = 144 mg/dL 70-110 H 3796846970) CREATININE (test code = 0.54 mg/dL 0.60-1.25 L 1045387528) TOTAL BILI (test code = 0.6 mg/dL 0.1-1.6 2594599360) CALCIUM (test code = 9.5 mg/dL 8.6-10.6 1348985487) T PROTEIN (test code = 7.7 g/dL 6.3-8.2 1831797379) ALBUMIN (test code = 4.4 g/dL 3.5-5.0 0504438380) ALK PHOS (test code = 101 U/L 34-122 1115464160) ALTv (test code = 28 U/L 5-50 1742-6) AST(SGOT) (test code = 20 U/L 13-40 3950291886) eGFR (test code = mL/min/1.73m2 3419998270) ARPITA (test code = ARPITA) Association of [...] tests). Lab Interpretation Abnormal (test code = 05402-1) [facility]23 Test Item Value Reference Range Interpretation Comments LIPASE (test code = 4432707110) 99 U/L 0-220 Lab Interpretation (test code = Normal 05600-3) [facility] GLUCOSE (AUTOMATED)2022-05-06 13:16:26 Test Item Value Reference Range Interpretation Comments POCT GLU (test code = 8974638607) 162 mg/dL 70-110 H Lab Interpretation (test code = Abnormal 17431-4) [facility] GLUCOSE (AUTOMATED)2022-05-06 01:23:12 Test Item Value Reference Range Interpretation Comments POCT GLU (test code = 8301813359) 248 mg/dL 70-110 H Lab Interpretation (test code = Abnormal 15473-9) [facility] GLUCOSE (AUTOMATED)2022-05-05 21:32:18 Test Item Value Reference Range Interpretation Comments POCT GLU (test code = 7754715569) 239 mg/dL 70-110 H Lab Interpretation (test code = Abnormal 05847-1) [facility] GLUCOSE (AUTOMATED)2022-05-05 01:49:48 Test Item Value Reference Range Interpretation Comments POCT GLU (test code = 2379911852) 317 mg/dL 70-110 H Lab Interpretation (test code = Abnormal 45651-9) [facility] GLUCOSE (AUTOMATED)2022-05-04 21:38:03 Test Item Value Reference Range Interpretation Comments POCT GLU (test code = 8420521174) 139 mg/dL 70-110 H Lab Interpretation (test code = Abnormal 07503-4) [facility] GLUCOSE (AUTOMATED)2022-05-04 16:14:31 Test Item Value Reference Range Interpretation Comments POCT GLU (test code = 1700794340) 164 mg/dL 70-110 H Lab Interpretation (test code = Abnormal 71323-5) [facility] GLUCOSE (AUTOMATED)2022-05-04 12:46:40 Test Item Value Reference Range Interpretation Comments POCT GLU (test code = 4632090824) 154 mg/dL 70-110 H Lab Interpretation (test code = Abnormal 39797-4) [facility]52 Test Item Value Reference Range Interpretation Comments LIPASE (test code = 8827304041) 216 U/L 0-220 Lab Interpretation (test code = Normal 39870-2) [facility] (22577[facility]2022-05-04 06:39:52 Test Item Value Reference Range Interpretation Comments NA (test code = 139 mmol/L 135-145 2233814602) K (test code = 4.7 mmol/L 3.5-5 3529871089) CL (test code = 106 mmol/L 98-108 1216195146) CO2 TOTAL (test code = 20 mmol/L 23-31 L 7856738383) AGAP (test code = 2-16 5711166581) BUN (test code = 16 mg/dL 7-23 4371318078) GLUCOSE (test code = 224 mg/dL 70-110 H 5680267124) CREATININE (test code = 0.72 mg/dL 0.6-1.25 3914628496) TOTAL BILI (test code = 0.4 mg/dL 0.1-1.3 4829800724) CALCIUM (test code = 9.3 mg/dL 8.6-10.6 1656031674) T PROTEIN (test code = 7.2 g/dL 6.3-8.2 8998358995) ALBUMIN (test code = 4.1 g/dL 3.5-5 2770264904) ALK PHOS (test code = 118 U/L 34-122 2498183653) ALTv (test code = 46 U/L 5-50 1742-6) AST(SGOT) (test code = 18 U/L 13-40 9834739898) eGFR (test code = mL/min/1.73m2 0641017641) ARPITA (test code = ARPITA) Association of [...] tests). Lab Interpretation Abnormal (test code = 97066-8) [facility] WITH [id number] 06:28:46 Test Item Value Reference Range Interpretation Comments WBC (test code = See_Comment [Automated 0519-2) message] The sy stem which generated this result transmitted reference range : 4.20 - 10.70 10*3/?L. The reference range was not used to interpret this result as normal/abnormal . RBC (test code = See_Comment [Automated 882-9) message] The sy stem which generated this [...] RDW-SD (test code = 45.7 fL 38.5-51.6 58848-1) RDW-CV (test code = 14.8 % 12.1-15.4 788-0) PLT (test code = See_Comment H [Automated 777-3) message] The sy stem which generated this result transmitted reference range : 150 - 328 10*3/ ?L. The reference r boubacar was not used to interpret this result as normal/abnormal . MPV (test code = 11.0 fL 9.8-13 41959-1) NRBC/100 WBC (test See_Comment [Automat ed code = 0207094305) message] The system which generated this result transmitted reference range : 0.0 - 10.0 /100 WBCs. The refer ence range was not u sed to interpret th is result as normal/abnormal . NRBC x10^3 (test code See_Comment [Auto mated = 5359495748) message] The s ystem which generated this result transmitted reference range : 10*3/?L. The reference range was not used to interpret this result as normal/abnormal . GRAN MAT (NEUT) % 56.7 % (test code = 770-8) IMM GRAN % (test code 0.70 % = 6419344310) LYMPH % (test code = 31.5 % 736-9) MONO % (test code = 8.6 % 5905-5) EOS % (test code = 2.0 % 713-8) BASO % (test code = 0.5 % 706-2) GRAN MAT x10^3(ANC) 4.84 10*3/uL 1.99-6.95 (test code = 3803813198) IMM GRAN x10^3 (test 0.06 10*3/uL 0-0.06 code = 3983319356) LYMPH x10^3 (test code 2.69 10*3/uL 1.09-3.23 = 731-0) MONO x10^3 (test code 0.73 10*3/uL 0.36-1.02 = 742-7) EOS x10^3 (test code = 0.17 10*3/uL 0.06-0.53 711-2) BASO x10^3 (test code 0.04 10*3/uL 0.01-0.09 = 704-7) Lab Interpretation Abnormal (test code = 23564-0) [facility] CULTURE(AEROBIC/ANAEROBIC)2022-02-23 20:34:19 Test Item Value Reference Range Interpretation Comments TISSUE CULTURE (test No aerobic/anaerobic code = 13546-5) organisms isolated Gram stain (test code No PMNs or Mononuclear = 664-3) cells observed [facility] GLUCOSE (AUTOMATED)2022-02-23 18:36:41 Test Item Value Reference Range Interpretation Comments POCT GLU (test code = 9049008838) 162 mg/dL 70-110 H Lab Interpretation (test code = Abnormal 89712-9) [facility] GLUCOSE (AUTOMATED)2022-02-23 14:48:29 Test Item Value Reference Range Interpretation Comments POCT GLU (test code = 8817085310) 191 mg/dL 70-110 H Lab Interpretation (test code = Abnormal 34580-2) [facility] GLUCOSE (AUTOMATED)2022-02-23 10:56:47 Test Item Value Reference Range Interpretation Comments POCT GLU (test code = 9557509932) 242 mg/dL 70-110 H Lab Interpretation (test code = Abnormal 13667-2) [facility] GLUCOSE (AUTOMATED)2022-02-23 05:47:30 Test Item Value Reference Range Interpretation Comments POCT GLU (test code = 8759950627) 327 mg/dL 70-110 H Lab Interpretation (test code = Abnormal 50190-4) [facility] GLUCOSE (AUTOMATED)2022-02-23 02:18:34 Test Item Value Reference Range Interpretation Comments POCT GLU (test code = 7806970313) 309 mg/dL 70-110 H Lab Interpretation (test code = Abnormal 34214-0) [facility] GLUCOSE (AUTOMATED)2022-02-22 23:17:38 Test Item Value Reference Range Interpretation Comments POCT GLU (test code = 8376934970) 260 mg/dL 70-110 H Lab Interpretation (test code = Abnormal 71529-8) [facility] GLUCOSE (AUTOMATED)2022-02-22 18:33:41 Test Item Value Reference Range Interpretation Comments POCT GLU (test code = 9578102889) 264 mg/dL 70-110 H Lab Interpretation (test code = Abnormal 18932-1) [facility] 15:02:50 Test Item Value Reference Range Interpretation Comments POCT GLU (test code = 6800428884) 219 mg/dL 70-110 H Lab Interpretation (test code = Abnormal 81691-0) [facility] METABOLIC PANEL (NA, K, CL, CO2, GLUCOSE, BUN, CREATININE, CA)2022-02-22 10:44:27 Test Item Value Reference Range Interpretation Comments NA (test code = 132 mmol/L 135-145 L 5106024342) K (test code = 4.4 mmol/L 3.5-5 7392243874) CL (test code = 103 mmol/L 98-108 6587888957) CO2 TOTAL (test code = 25 mmol/L 23-31 5505516658) AGAP (test code = 2-16 2702593370) BUN (test code = 15 mg/dL 7-23 7964571001) GLUCOSE (test code = 262 mg/dL 70-110 H 9732873343) CREATININE (test code = 0.52 mg/dL 0.6-1.25 L 0423573419) CALCIUM (test code = 8.3 mg/dL 8.6-10.6 L 3003337331) eGFR (test code = mL/min/1.73m2 4407688885) ARPITA (test code = ARPITA) Association of [...] tests). Lab Interpretation Abnormal (test code = 67189-2) [facility] acute hospital WITH [id number] 10:22:05 Test Item Value Reference Range Interpretation [...] RDW-SD (test code = 49.8 fL 38.5-51.6 54060-8) RDW-CV (test code = 15.9 % 12.1-15.4 H 788-0) PLT (test code = See_Comment H [Automated 777-3) message] The sy stem which generated this result transmitted reference range : 150 - 328 10*3/ ?L. The reference r boubacar was not used to interpret this result as normal/abnormal . MPV (test code = 10.4 fL 9.8-13 86378-4) NRBC/100 WBC (test See_Comment [Automat ed code = 9286550392) message] The system which generated this result transmitted reference range : 0.0 - 10.0 /100 WBCs. The refer ence range was not u sed to interpret th is result as normal/abnormal . NRBC x10^3 (test code See_Comment [Auto mated = 6968000538) message] The s ystem which generated this result transmitted reference range : 10*3/?L. The reference range was not used to interpret this result as normal/abnormal . GRAN MAT (NEUT) % 59.8 % (test code = 770-8) IMM GRAN % (test code 1.20 % = 0826035652) LYMPH % (test code = 28.2 % 736-9) MONO % (test code = 8.4 % 5905-5) EOS % (test code = 2.2 % 713-8) BASO % (test code = 0.2 % 706-2) GRAN MAT x10^3(ANC) 5.34 10*3/uL 1.99-6.95 (test code = 6756124635) IMM GRAN x10^3 (test 0.11 10*3/uL 0-0.06 H code = 0554281696) LYMPH x10^3 (test code 2.52 10*3/uL 1.09-3.23 = 731-0) MONO x10^3 (test code 0.75 10*3/uL 0.36-1.02 = 742-7) EOS x10^3 (test code = 0.20 10*3/uL 0.06-0.53 711-2) BASO x10^3 (test code 0.01-0.09 = 704-7) Lab Interpretation Abnormal (test code = 16031-6) [facility] GLUCOSE (AUTOMATED)2022-02-22 02:20:10 Test Item Value Reference Range Interpretation Comments POCT GLU (test code = 1063741859) 281 mg/dL 70-110 H Lab Interpretation (test code = Abnormal 23867-1) [facility] GLUCOSE (AUTOMATED)2022-02-21 22:27:37 Test Item Value Reference Range Interpretation Comments POCT GLU (test code = 0326878183) 187 mg/dL 70-110 H Lab Interpretation (test code = Abnormal 95402-1) [facility] GLUCOSE (AUTOMATED)2022-02-21 19:00:16 Test Item Value Reference Range Interpretation Comments POCT GLU (test code = 7280609258) 167 mg/dL 70-110 H Lab Interpretation (test code = Abnormal 29396-2) [facility] GLUCOSE (AUTOMATED)2022-02-21 19:00:16 Test Item Value Reference Range Interpretation Comments POCT GLU (test code = 8137236321) 167 mg/dL 70-110 H Lab Interpretation (test code = Abnormal 97819-1) [facility] GLUCOSE (AUTOMATED)2022-02-21 15:22:04 Test Item Value Reference Range Interpretation Comments POCT GLU (test code = 9247759895) 138 mg/dL 70-110 H Lab Interpretation (test code = Abnormal 73544-4) [facility] GLUCOSE (AUTOMATED)2022-02-21 15:22:04 Test Item Value Reference Range Interpretation Comments POCT GLU (test code = 4673287604) 138 mg/dL 70-110 H Lab Interpretation (test code = Abnormal 54598-1) [facility] GLUCOSE (AUTOMATED)2022-02-21 02:45:31 Test Item Value Reference Range Interpretation Comments POCT GLU (test code = 2114255990) 142 mg/dL 70-110 H Lab Interpretation (test code = Abnormal 27190-8) [facility] GLUCOSE (AUTOMATED)2022-02-21 02:45:31 Test Item Value Reference Range Interpretation Comments POCT GLU (test code = 4615156687) 142 mg/dL 70-110 H Lab Interpretation (test code = Abnormal 21351-3) [facility] 22:04:41 Test Item Value Reference Range Interpretation Comments POCT GLU (test code = 1601229367) 260 mg/dL 70-110 H Lab Interpretation (test code = Abnormal 85486-7) [facility] GLUCOSE (AUTOMATED)2022-02-20 22:04:41 Test Item Value Reference Range Interpretation Comments POCT GLU (test code = 8738314044) 260 mg/dL 70-110 H Lab Interpretation (test code = Abnormal 42372-9) [facility] Culture - Peripheral Vein # 21:01:35 Test Item Value Reference Range Interpretation Comments Blood Culture-Aerobic No organisms No growth Previo us (test code = 48959-0) isolated prelim inary verified result was Culture [...] Culture-Anaerobic isolated preliminar y (test code = 07783-5) verifi ed result was Culture In Progress [...] CDT Lab Interpretation Normal (test code = 42826-5) [facility] Culture - Peripheral [id number] 21:01:35 Test Item Value Reference Range Interpretation Comments Blood Culture-Aerobic No organisms No growth Previo us (test code = 27153-3) isolated prelim inary verified result was Culture [...] Culture-Anaerobic isolated preliminar y (test code = 03995-7) verifi ed result was Culture In Progress [...] CDT Lab Interpretation Normal (test code = 49367-4) [facility] Culture - Peripheral Vein # 21:01:35 Test Item Value Reference Range Interpretation Comments Blood Culture-Aerobic No organisms No growth Previo us (test code = 69095-6) isolated prelim inary verified result was Culture [...] Culture-Anaerobic isolated preliminar y (test code = 03443-2) verifi ed result was Culture In Progress [...] CDT Lab Interpretation Normal (test code = 15371-8) [facility] Culture - Peripheral [id number] 21:01:35 Test Item Value Reference Range Interpretation Comments Blood Culture-Aerobic No organisms No growth Previo us (test code = 72465-7) isolated prelim inary verified result was Culture [...] Culture-Anaerobic isolated preliminar y (test code = 07132-2) verifi ed result was Culture In Progress [...] CDT Lab Interpretation Normal (test code = 05743-7) [facility] GLUCOSE (AUTOMATED)2022-02-20 14:13:49 Test Item Value Reference Range Interpretation Comments POCT GLU (test code = 4694490682) 176 mg/dL 70-110 H Lab Interpretation (test code = Abnormal 65563-3) [facility] GLUCOSE (AUTOMATED)2022-02-20 14:13:49 Test Item Value Reference Range Interpretation Comments POCT GLU (test code = 7824417675) 176 mg/dL 70-110 H Lab Interpretation (test code = Abnormal 57225-2) [facility] GLUCOSE (AUTOMATED)2022-02-20 02:30:54 Test Item Value Reference Range Interpretation Comments POCT GLU (test code = 6638497738) 113 mg/dL 70-110 H Lab Interpretation (test code = Abnormal 87605-4) [facility] GLUCOSE (AUTOMATED)2022-02-20 02:30:54 Test Item Value Reference Range Interpretation Comments POCT GLU (test code = 1025728586) 113 mg/dL 70-110 H Lab Interpretation (test code = Abnormal 68889-8) [facility] GLUCOSE (AUTOMATED)2022-02-19 23:41:12 Test Item Value Reference Range Interpretation Comments POCT GLU (test code = 9117261907) 135 mg/dL 70-110 H Lab Interpretation (test code = Abnormal 95041-1) [facility] GLUCOSE (AUTOMATED)2022-02-19 23:41:12 Test Item Value Reference Range Interpretation Comments POCT GLU (test code = 9657236537) 135 mg/dL 70-110 H Lab Interpretation (test code = Abnormal 14929-7) [facility] GLUCOSE (AUTOMATED)2022-02-19 17:13:18 Test Item Value Reference Range Interpretation Comments POCT GLU (test code = 1516820968) 238 mg/dL 70-110 H Lab Interpretation (test code = Abnormal 08487-6) [facility] GLUCOSE (AUTOMATED)2022-02-19 17:13:18 Test Item Value Reference Range Interpretation Comments POCT GLU (test code = 6580004345) 238 mg/dL 70-110 H Lab Interpretation (test code = Abnormal 40696-4) [facility] GLUCOSE (AUTOMATED)2022-02-19 17:13:18 Test Item Value Reference Range Interpretation Comments POCT GLU (test code = 2231406180) 238 mg/dL 70-110 H Lab Interpretation (test code = Abnormal 47484-7) [facility] [id number] 16:50:53 Test Item Value Reference Range Interpretation Comments CRP (test code = 0.9 mg/dL See_Comment H [Automated message] 2900060368) The system [employer] generated this result transmit lester reference range : <=0.8. The refe rence range was not u sed to interpret th is result as normal/abnormal . Lab Interpretation (test Abnormal code = 86341-8) [facility] [id number] 16:50:53 Test Item Value Reference Range Interpretation Comments CRP (test code = 0.9 mg/dL See_Comment H [Automated message] 6032175630) The system [employer] generated this result transmit lester reference range : <=0.8. The refe rence range was not u sed to interpret th is result as normal/abnormal . Lab Interpretation (test Abnormal code = 75004-7) [facility] [id number] 16:50:53 Test Item Value Reference Range Interpretation Comments CRP (test code = 0.9 mg/dL See_Comment H [Automated message] 4093294372) The system [employer] generated this result transmit lester reference range : <=0.8. The refe rence range was not u sed to interpret th is result as normal/abnormal . Lab Interpretation (test Abnormal code = 66941-9) [facility] GLUCOSE (AUTOMATED)2022-02-19 15:55:49 Test Item Value Reference Range Interpretation Comments POCT GLU (test code = 7193574204) 209 mg/dL 70-110 H Lab Interpretation (test code = Abnormal 74788-0) [facility] GLUCOSE (AUTOMATED)2022-02-19 15:55:49 Test Item Value Reference Range Interpretation Comments POCT GLU (test code = 5077538290) 209 mg/dL 70-110 H Lab Interpretation (test code = Abnormal 77093-1) [facility] GLUCOSE (AUTOMATED)2022-02-19 00:58:44 Test Item Value Reference Range Interpretation Comments POCT GLU (test code = 5507083875) 300 mg/dL 70-110 H Lab Interpretation (test code = Abnormal 71781-3) [facility] GLUCOSE (AUTOMATED)2022-02-19 00:58:44 Test Item Value Reference Range Interpretation Comments POCT GLU (test code = 4720322875) 300 mg/dL 70-110 H Lab Interpretation (test code = Abnormal 02503-9) [facility] GLUCOSE (AUTOMATED)2022-02-18 21:28:03 Test Item Value Reference Range Interpretation Comments POCT GLU (test code = 1426475186) 119 mg/dL 70-110 H Lab Interpretation (test code = Abnormal 29887-7) [facility] GLUCOSE (AUTOMATED)2022-02-18 21:28:03 Test Item Value Reference Range Interpretation Comments POCT GLU (test code = 3902139139) 119 mg/dL 70-110 H Lab Interpretation (test code = Abnormal 54798-8) [facility] GLUCOSE (AUTOMATED)2022-02-18 16:51:05 Test Item Value Reference Range Interpretation Comments POCT GLU (test code = 5199170309) 275 mg/dL 70-110 H Lab Interpretation (test code = Abnormal 62598-9) [facility] GLUCOSE (AUTOMATED)2022-02-18 16:51:05 Test Item Value Reference Range Interpretation Comments POCT GLU (test code = 4472928129) 275 mg/dL 70-110 H Lab Interpretation (test code = Abnormal 20434-2) [facility] METABOLIC PANEL (NA, K, CL, CO2, GLUCOSE, BUN, CREATININE, CA)2022-02-18 15:51:39 Test Item Value Reference Range Interpretation Comments NA (test code = 136 mmol/L 135-145 5420595193) K (test code = 3.7 mmol/L 3.5-5 6632842906) CL (test code = 111 mmol/L 98-108 H 2936882504) CO2 TOTAL (test code = 21 mmol/L 23-31 L 9826424190) AGAP (test code = 2-16 8808228120) BUN (test code = 9 mg/dL 7-23 8076061413) GLUCOSE (test code = 278 mg/dL 70-110 H 8361587960) CREATININE (test code = 0.46 mg/dL 0.6-1.25 L 2907022071) CALCIUM (test code = 8.2 mg/dL 8.6-10.6 L 1180405163) eGFR (test code = mL/min/1.73m2 5512801228) ARPITA (test code = ARPITA) Association of [...] tests). Lab Interpretation Abnormal (test code = 50628-4) [facility] (NA, K, CL, CO2, GLUCOSE, BUN, CREATININE, CA)2022-02-18 15:51:39 Test Item Value Reference Range Interpretation Comments NA (test code = 136 mmol/L 135-145 7222792889) K (test code = 3.7 mmol/L 3.5-5 6115360585) CL (test code = 111 mmol/L 98-108 H 3194096328) CO2 TOTAL (test code = 21 mmol/L 23-31 L 6519747237) AGAP (test code = 2-16 0712666340) BUN (test code = 9 mg/dL 7-23 8068586220) GLUCOSE (test code = 278 mg/dL 70-110 H 8466782371) CREATININE (test code = 0.46 mg/dL 0.6-1.25 L 6330513007) CALCIUM (test code = 8.2 mg/dL 8.6-10.6 L 7405719089) eGFR (test code = mL/min/1.73m2 8289632067) ARPITA (test code = ARPITA) Association of [...] tests). Lab Interpretation Abnormal (test code = 57588-5) [facility] GLUCOSE (AUTOMATED)2022-02-18 12:36:29 Test Item Value Reference Range Interpretation Comments POCT GLU (test code = 0119938319) 276 mg/dL 70-110 H Lab Interpretation (test code = Abnormal 71823-4) [facility] GLUCOSE (AUTOMATED)2022-02-18 12:36:29 Test Item Value Reference Range Interpretation Comments POCT GLU (test code = 2082360290) 276 mg/dL 70-110 H Lab Interpretation (test code = Abnormal 19470-0) [facility] GLUCOSE (AUTOMATED)2022-02-18 01:29:51 Test Item Value Reference Range Interpretation Comments POCT GLU (test code = 0128802910) 289 mg/dL 70-110 H Lab Interpretation (test code = Abnormal 90876-2) [facility] GLUCOSE (AUTOMATED)2022-02-18 01:29:51 Test Item Value Reference Range Interpretation Comments POCT GLU (test code = 7597022342) 289 mg/dL 70-110 H Lab Interpretation (test code = Abnormal 01765-7) [facility] GLUCOSE (AUTOMATED)2022-02-17 21:24:38 Test Item Value Reference Range Interpretation Comments POCT GLU (test code = 3705271425) 173 mg/dL 70-110 H Lab Interpretation (test code = Abnormal 62595-2) [facility] GLUCOSE (AUTOMATED)2022-02-17 21:24:38 Test Item Value Reference Range Interpretation Comments POCT GLU (test code = 1994855349) 173 mg/dL 70-110 H Lab Interpretation (test code = Abnormal 30831-1) [facility] GLUCOSE (AUTOMATED)2022-02-17 16:50:49 Test Item Value Reference Range Interpretation Comments POCT GLU (test code = 4179982404) 279 mg/dL 70-110 H Lab Interpretation (test code = Abnormal 70588-2) [facility] GLUCOSE (AUTOMATED)2022-02-17 16:50:49 Test Item Value Reference Range Interpretation Comments POCT GLU (test code = 9180147903) 279 mg/dL 70-110 H Lab Interpretation (test code = Abnormal 81464-2) [facility] GLUCOSE (AUTOMATED)2022-02-17 13:31:23 Test Item Value Reference Range Interpretation Comments POCT GLU (test code = 8095279544) 281 mg/dL 70-110 H Lab Interpretation (test code = Abnormal 98897-2) [facility] GLUCOSE (AUTOMATED)2022-02-17 13:31:23 Test Item Value Reference Range Interpretation Comments POCT GLU (test code = 6700773112) 281 mg/dL 70-110 H Lab Interpretation (test code = Abnormal 10238-2) [facility] GLUCOSE (AUTOMATED)2022-02-17 10:02:35 Test Item Value Reference Range Interpretation Comments POCT GLU (test code = 9992231732) 339 mg/dL 70-110 H Lab Interpretation (test code = Abnormal 73860-7) [facility] GLUCOSE (AUTOMATED)2022-02-17 10:02:35 Test Item Value Reference Range Interpretation Comments POCT GLU (test code = 0010703758) 339 mg/dL 70-110 H Lab Interpretation (test code = Abnormal 40308-6) [facility] GLUCOSE (AUTOMATED)2022-02-17 06:33:22 Test Item Value Reference Range Interpretation Comments POCT GLU (test code = 4945963531) 295 mg/dL 70-110 H Lab Interpretation (test code = Abnormal 30335-3) [facility] GLUCOSE (AUTOMATED)2022-02-17 06:33:22 Test Item Value Reference Range Interpretation Comments POCT GLU (test code = 2904873495) 295 mg/dL 70-110 H Lab Interpretation (test code = Abnormal 43125-2) [facility] GLUCOSE (AUTOMATED)2022-02-17 01:54:18 Test Item Value Reference Range Interpretation Comments POCT GLU (test code = 8551161662) 258 mg/dL 70-110 H Lab Interpretation (test code = Abnormal 73611-6) [facility] GLUCOSE (AUTOMATED)2022-02-17 01:54:18 Test Item Value Reference Range Interpretation Comments POCT GLU (test code = 6510141793) 258 mg/dL 70-110 H Lab Interpretation (test code = Abnormal 46155-9) [facility] GLUCOSE (AUTOMATED)2022-02-16 23:03:09 Test Item Value Reference Range Interpretation Comments POCT GLU (test code = 5536707856) 286 mg/dL 70-110 H Lab Interpretation (test code = Abnormal 41448-9) [facility] GLUCOSE (AUTOMATED)2022-02-16 23:03:09 Test Item Value Reference Range Interpretation Comments POCT GLU (test code = 6630570297) 286 mg/dL 70-110 H Lab Interpretation (test code = Abnormal 58690-9) [facility] GLUCOSE (AUTOMATED)2022-02-16 20:48:08 Test Item Value Reference Range Interpretation Comments POCT GLU (test code = 9788489153) 249 mg/dL 70-110 H Lab Interpretation (test code = Abnormal 77835-5) [facility] GLUCOSE (AUTOMATED)2022-02-16 20:48:08 Test Item Value Reference Range Interpretation Comments POCT GLU (test code = 7199396981) 249 mg/dL 70-110 H Lab Interpretation (test code = Abnormal 17706-8) [id number] 17:01:47 Test Item Value Reference Range Interpretation Comments BOH (test code = 1.0 mmol/L 4846877042) ARPITA (test code = Normal Ranges: ? ? ARPITA) Nonfasting ? Less than 0.1 mmol/L ? ? Overnight Fast ? ? ? Less than 0.4 mmol/L ? ? Fasting (1-2 weeks) ?6-8 mmol/L Test developed and characteristics determined by [facility] Laboratory Services. [facility] [id number] 17:01:47 Test Item Value Reference Range Interpretation Comments BOH (test code = 1.0 mmol/L 0134921249) ARPITA (test code = Normal Ranges: ? ? ARPITA) Nonfasting ? Less than 0.1 mmol/L ? ? Overnight Fast ? ? ? Less than 0.4 mmol/L ? ? Fasting (1-2 weeks) ?6-8 mmol/L Test developed and characteristics determined by [facility]. [facility] [id number] 17:01:47 Test Item Value Reference Range Interpretation Comments BOH (test code = 1.0 mmol/L 2123854115) ARPITA (test code = Normal Ranges: ? ? ARPITA) Nonfasting ? Less than 0.1 mmol/L ? ? Overnight Fast ? ? ? Less than 0.4 mmol/L ? ? Fasting (1-2 weeks) ?6-8 mmol/L Test developed and characteristics determined by [facility] Laboratory Services. [facility] GLUCOSE (AUTOMATED)2022-02-16 16:42:59 Test Item Value Reference Range Interpretation Comments POCT GLU (test code = 0277672707) 264 mg/dL 70-110 H Lab Interpretation (test code = Abnormal 79681-1) [facility] GLUCOSE (AUTOMATED)2022-02-16 16:42:59 Test Item Value Reference Range Interpretation Comments POCT GLU (test code = 2685949727) 264 mg/dL 70-110 H Lab Interpretation (test code = Abnormal 60775-9) [facility] Metabolic Panel (Na, K, Cl, CO2, Glucose, BUN, Creatinine, Ca)2022-02-16 16:16:20 Test Item Value Reference Range Interpretation Comments NA (test code = 137 mmol/L 135-145 5048408665) K (test code = 3.5 mmol/L 3.5-5 8518285063) CL (test code = 115 mmol/L 98-108 H 7965414647) CO2 TOTAL (test code = 17 mmol/L 23-31 L 7366445658) AGAP (test code = 2-16 0198164331) BUN (test code = 5 mg/dL 7-23 L 9097331285) GLUCOSE (test code = 271 mg/dL 70-110 H 7228808554) CREATININE (test code = 0.45 mg/dL 0.6-1.25 L 0455552567) CALCIUM (test code = 8.5 mg/dL 8.6-10.6 L 4006490467) eGFR (test code = mL/min/1.73m2 7552128301) ARPITA (test code = ARPITA) Association of [...] tests). Lab Interpretation Abnormal (test code = 62080-5) [facility] (Na, K, Cl, CO2, Glucose, BUN, Creatinine, Ca)2022-02-16 16:16:20 Test Item Value Reference Range Interpretation Comments NA (test code = 137 mmol/L 135-145 5960553815) K (test code = 3.5 mmol/L 3.5-5 9159145796) CL (test code = 115 mmol/L 98-108 H 1506504021) CO2 TOTAL (test code = 17 mmol/L 23-31 L 6621378049) AGAP (test code = 2-16 6000770665) BUN (test code = 5 mg/dL 7-23 L 9298507956) GLUCOSE (test code = 271 mg/dL 70-110 H 4799509514) CREATININE (test code = 0.45 mg/dL 0.6-1.25 L 0208126248) CALCIUM (test code = 8.5 mg/dL 8.6-10.6 L 6146192408) eGFR (test code = mL/min/1.73m2 9937581949) ARPITA (test code = ARPITA) Association of [...] tests). Lab Interpretation Abnormal (test code = 65553-3) [facility] GLUCOSE (AUTOMATED)2022-02-16 14:21:27 Test Item Value Reference Range Interpretation Comments POCT GLU (test code = 4011694161) 286 mg/dL 70-110 H Lab Interpretation (test code = Abnormal 22505-7) [facility] GLUCOSE (AUTOMATED)2022-02-16 14:21:27 Test Item Value Reference Range Interpretation Comments POCT GLU (test code = 6765407148) 286 mg/dL 70-110 H Lab Interpretation (test code = Abnormal 26387-4) [facility] [id number]-[id number] 13:29:25 Test Item Value Reference Range Interpretation Comments Coagulase Negative Positive Negative, See A Staphylococcus (test Comment/Narrative code = 68231-0) ARPITA (test code = ARPITA) Coagulase negative [...] contact the Antimicrobial Stewardship Program with questions.Pager: ?[phone] Testing included eleven identification and three resistance marker targets. Lab Interpretation Abnormal (test code = 80946-5) [facility] FAOQE-[id number] 13:29:25 Test Item Value Reference Range Interpretation Comments Coagulase Negative Positive Negative, See A Staphylococcus (test Comment/Narrative code = 45491-8) ARPITA (test code = ARPITA) Coagulase negative [...] contact the Antimicrobial Stewardship Program with questions.Pager: ?[phone] Testing included eleven identification and three resistance marker targets. Lab Interpretation Abnormal (test code = 36767-5) [facility] [id number]-[id number] 13:29:25 Test Item Value Reference Range Interpretation Comments Coagulase Negative Positive Negative, See A Staphylococcus (test Comment/Narrative code = 64448-2) ARPITA (test code = ARPIAT) Coagulase negative Staphylococcus (CoNS) detected by DNA [...] contact the Antimicrobial Stewardship Program with questions.Pager: ?[phone] Testing included eleven identification and three resistance marker targets. Lab Interpretation Abnormal (test code = 25397-5) [facility] GLUCOSE (AUTOMATED)2022-02-16 13:03:22 Test Item Value Reference Range Interpretation Comments POCT GLU (test code = 6352148861) 307 mg/dL 70-110 H Lab Interpretation (test code = Abnormal 63417-7) [facility] GLUCOSE (AUTOMATED)2022-02-16 13:03:22 Test Item Value Reference Range Interpretation Comments POCT GLU (test code = 8145792885) 307 mg/dL 70-110 H Lab Interpretation (test code = Abnormal 92330-3) [facility] GLUCOSE (AUTOMATED)2022-02-16 09:05:19 Test Item Value Reference Range Interpretation Comments POCT GLU (test code = 7598540797) 326 mg/dL 70-110 H Lab Interpretation (test code = Abnormal 50791-7) [facility] GLUCOSE (AUTOMATED)2022-02-16 09:05:19 Test Item Value Reference Range Interpretation Comments POCT GLU (test code = 2514082783) 326 mg/dL 70-110 H Lab Interpretation (test code = Abnormal 90785-8) [facility] GLUCOSE (AUTOMATED)2022-02-16 05:46:58 Test Item Value Reference Range Interpretation Comments POCT GLU (test code = 1785204957) 341 mg/dL 70-110 H Lab Interpretation (test code = Abnormal 94849-7) [facility] GLUCOSE (AUTOMATED)2022-02-16 05:46:58 Test Item Value Reference Range Interpretation Comments POCT GLU (test code = 8794277177) 341 mg/dL 70-110 H Lab Interpretation (test code = Abnormal 93477-0) [facility] GLUCOSE (AUTOMATED)2022-02-16 01:37:20 Test Item Value Reference Range Interpretation Comments POCT GLU (test code = 7632821576) 196 mg/dL 70-110 H Lab Interpretation (test code = Abnormal 82215-5) [facility] GLUCOSE (AUTOMATED)2022-02-16 01:37:20 Test Item Value Reference Range Interpretation Comments POCT GLU (test code = 6938536967) 196 mg/dL 70-110 H Lab Interpretation (test code = Abnormal 90368-7) [facility] GLUCOSE (AUTOMATED)2022-02-15 23:44:41 Test Item Value Reference Range Interpretation Comments POCT GLU (test code = 7448119828) 138 mg/dL 70-110 H Lab Interpretation (test code = Abnormal 38120-3) [facility] GLUCOSE (AUTOMATED)2022-02-15 23:44:41 Test Item Value Reference Range Interpretation Comments POCT GLU (test code = 0178450689) 138 mg/dL 70-110 H Lab Interpretation (test code = Abnormal 36160-8) [facility] Metabolic Panel (Na, K, Cl, CO2, Glucose, BUN, Creatinine, Ca)2022-02-15 23:12:45 Test Item Value Reference Range Interpretation Comments NA (test code = 138 mmol/L 135-145 2977706378) K (test code = 3.7 mmol/L 3.5-5 3425299202) CL (test code = 115 mmol/L 98-108 H 4326584508) CO2 TOTAL (test code = 17 mmol/L 23-31 L 1052904673) AGAP (test code = 2-16 7051283203) BUN (test code = 5 mg/dL 7-23 L 0860010352) GLUCOSE (test code = 86 mg/dL 70-110 1947553067) CREATININE (test code = 0.46 mg/dL 0.6-1.25 L 2691610538) CALCIUM (test code = 8.4 mg/dL 8.6-10.6 L 6998228539) eGFR (test code = mL/min/1.73m2 3826771116) ARPITA (test code = ARPITA) Association of [...] tests). Lab Interpretation Abnormal (test code = 54488-4) [facility] Metabolic Panel (Na, K, Cl, CO2, Glucose, BUN, Creatinine, Ca)2022-02-15 23:12:45 Test Item Value Reference Range Interpretation Comments NA (test code = 138 mmol/L 135-145 0079525220) K (test code = 3.7 mmol/L 3.5-5 5790852302) CL (test code = 115 mmol/L 98-108 H 8571997489) CO2 TOTAL (test code = 17 mmol/L 23-31 L 9056187941) AGAP (test code = 2-16 9043826216) BUN (test code = 5 mg/dL 7-23 L 3584603210) GLUCOSE (test code = 86 mg/dL 70-110 4757889938) CREATININE (test code = 0.46 mg/dL 0.6-1.25 L 5983074037) CALCIUM (test code = 8.4 mg/dL 8.6-10.6 L 1988015878) eGFR (test code = mL/min/1.73m2 4114921919) ARPITA (test code = ARPITA) Association of [...] tests). Lab Interpretation Abnormal (test code = 04480-4) [facility] GLUCOSE (AUTOMATED)2022-02-15 22:38:52 Test Item Value Reference Range Interpretation Comments POCT GLU (test code = 7902101108) 94 mg/dL 70-110 Lab Interpretation (test code = Normal 37010-4) [facility] GLUCOSE (AUTOMATED)2022-02-15 22:38:52 Test Item Value Reference Range Interpretation Comments POCT GLU (test code = 7816648972) 94 mg/dL 70-110 Lab Interpretation (test code = Normal 72393-2) [facility] GLUCOSE (AUTOMATED)2022-02-15 21:31:35 Test Item Value Reference Range Interpretation Comments POCT GLU (test code = 6622018472) 119 mg/dL 70-110 H Lab Interpretation (test code = Abnormal 68804-1) [facility] GLUCOSE (AUTOMATED)2022-02-15 21:31:35 Test Item Value Reference Range Interpretation Comments POCT GLU (test code = 4333669500) 119 mg/dL 70-110 H Lab Interpretation (test code = Abnormal 31640-9) [facility] GLUCOSE (AUTOMATED)2022-02-15 20:06:03 Test Item Value Reference Range Interpretation Comments POCT GLU (test code = 7326171190) 177 mg/dL 70-110 H Lab Interpretation (test code = Abnormal 91136-5) [facility] GLUCOSE (AUTOMATED)2022-02-15 20:06:03 Test Item Value Reference Range Interpretation Comments POCT GLU (test code = 7504142837) 177 mg/dL 70-110 H Lab Interpretation (test code = Abnormal 97713-6) [facility] GLUCOSE (AUTOMATED)2022-02-15 19:07:20 Test Item Value Reference Range Interpretation Comments POCT GLU (test code = 5682744262) 185 mg/dL 70-110 H Lab Interpretation (test code = Abnormal 93247-2) [facility] 19:07:20 Test Item Value Reference Range Interpretation Comments POCT GLU (test code = 3258930973) 185 mg/dL 70-110 H Lab Interpretation (test code = Abnormal 00436-3) [facility] [id number] 18:44:53 Test Item Value Reference Interpretation Comments Range TROPONIN I (test 0.000 ng/mL See_Comment [Automated code = 6113502999) message] The system which generated this result [...] biotin. Lab Interpretation Normal (test code = 52134-2) [facility] [id number] 18:44:53 Test Item Value Reference Interpretation Comments Range TROPONIN I (test 0.000 ng/mL See_Comment [Automated code = 7226045581) message] The system which generated this result [...] biotin. Lab Interpretation Normal (test code = 97997-7) [id number] 18:44:53 Test Item Value Reference Interpretation Comments Range TROPONIN I (test 0.000 ng/mL See_Comment [Automated code = 4277034991) message] The system which generated this result [...] biotin. Lab Interpretation Normal (test code = 99517-9) [facility] (Na, K, Cl, CO2, Glucose, BUN, Creatinine, Ca)2022-02-15 18:27:49 Test Item Value Reference Range Interpretation Comments NA (test code = 138 mmol/L 135-145 8070831964) K (test code = 3.7 mmol/L 3.5-5 7188183739) CL (test code = 115 mmol/L 98-108 H 5997777641) CO2 TOTAL (test code = 16 mmol/L 23-31 L 6261879883) AGAP (test code = 2-16 4721567584) BUN (test code = 7 mg/dL 7-23 0608963300) GLUCOSE (test code = 195 mg/dL 70-110 H 2166523475) CREATININE (test code = 0.52 mg/dL 0.6-1.25 L 4596987905) CALCIUM (test code = 8.2 mg/dL 8.6-10.6 L 6797922565) eGFR (test code = mL/min/1.73m2 8012766103) ARPITA (test code = ARPITA) Association of [...] tests). Lab Interpretation Abnormal (test code = 68331-7) [facility] Metabolic Panel (Na, K, Cl, CO2, Glucose, BUN, Creatinine, Ca)2022-02-15 18:27:49 Test Item Value Reference Range Interpretation Comments NA (test code = 138 mmol/L 135-145 9225160006) K (test code = 3.7 mmol/L 3.5-5 9065488097) CL (test code = 115 mmol/L 98-108 H 4983805389) CO2 TOTAL (test code = 16 mmol/L 23-31 L 3087833063) AGAP (test code = 2-16 7267182505) BUN (test code = 7 mg/dL 7-23 8380264457) GLUCOSE (test code = 195 mg/dL 70-110 H 6106206184) CREATININE (test code = 0.52 mg/dL 0.6-1.25 L 7627280594) CALCIUM (test code = 8.2 mg/dL 8.6-10.6 L 6438747347) eGFR (test code = mL/min/1.73m2 6669003461) ARPITA (test code = ARPITA) Association of [...] tests). Lab Interpretation Abnormal (test code = 70012-9) [facility] 17:43:01 Test Item Value Reference Range Interpretation Comments BOH (test code = 3.3 mmol/L 7639152898) ARPITA (test code = Normal Ranges: ? ? ARPITA) Nonfasting ? Less than 0.1 mmol/L ? ? Overnight Fast ? ? ? Less than 0.4 mmol/L ? ? Fasting (1-2 weeks) ?6-8 mmol/L Test developed and characteristics determined by [facility] Laboratory Services. [facility]hy8284[facility]-79 17:43:01 Test Item Value Reference Range Interpretation Comments BOH (test code = 3.3 mmol/L 6836721669) ARPITA (test code = Normal Ranges: ? ? ARPITA) Nonfasting ? Less than 0.1 mmol/L ? ? Overnight Fast ? ? ? Less than 0.4 mmol/L ? ? Fasting (1-2 weeks) ?6-8 mmol/L Test developed and characteristics determined by [facility] Laboratory Services. [facility] GLUCOSE (AUTOMATED)2022-02-15 17:29:05 Test Item Value Reference Range Interpretation Comments POCT GLU (test code = 8578549842) 192 mg/dL 70-110 H Lab Interpretation (test code = Abnormal 63235-2) [facility] GLUCOSE (AUTOMATED)2022-02-15 17:29:05 Test Item Value Reference Range Interpretation Comments POCT GLU (test code = 8513594763) 192 mg/dL 70-110 H Lab Interpretation (test code = Abnormal 53137-9) [facility] [id number] 16:28:42 Test Item Value Reference Range Interpretation Comments OSMOLALITY (test code = See_Comment H [Au tomated message] 2692-2) The system [employer] generated this result transmitted ref erence range: 278 - 30 5 mOsm/kg. The reference range was not used to int erpret this result as normal/abnormal . Lab Interpretation (test Abnormal code = 75318-5) [facility] [id number] 16:28:42 Test Item Value Reference Range Interpretation Comments OSMOLALITY (test code = See_Comment H [Au tomated message] 2692-2) The system [employer] generated this result transmitted ref erence range: 278 - 30 5 mOsm/kg. The reference range was not used to int erpret this result as normal/abnormal . Lab Interpretation (test Abnormal code = 95921-7) [facility] [id number] 16:28:42 Test Item Value Reference Range Interpretation Comments OSMOLALITY (test code = See_Comment H [Au tomated message] 2692-2) The system [employer] generated this result transmitted ref erence range: 278 - 30 5 mOsm/kg. The reference range was not used to int erpret this result as normal/abnormal . Lab Interpretation (test Abnormal code = 10347-4) [facility] Metabolic Panel (Na, K, Cl, CO2, Glucose, BUN, Creatinine, Ca)2022-02-15 16:02:27 Test Item Value Reference Range Interpretation Comments NA (test code = 138 mmol/L 135-145 2714101830) K (test code = 3.7 mmol/L 3.5-5 0441811962) CL (test code = 117 mmol/L 98-108 H 5328426697) CO2 TOTAL (test code = 15 mmol/L 23-31 L 3367590632) AGAP (test code = 2-16 8527793061) BUN (test code = 7 mg/dL 7-23 9225809864) GLUCOSE (test code = 204 mg/dL 70-110 H 4305368879) CREATININE (test code = 0.41 mg/dL 0.6-1.25 L 2323277490) CALCIUM (test code = 8.3 mg/dL 8.6-10.6 L 7882532411) eGFR (test code = mL/min/1.73m2 2889817558) ARPITA (test code = ARPITA) Association of [...] tests). Lab Interpretation Abnormal (test code = 58437-7) [facility] Metabolic Panel (Na, K, Cl, CO2, Glucose, BUN, Creatinine, Ca)2022-02-15 16:02:27 Test Item Value Reference Range Interpretation Comments NA (test code = 138 mmol/L 135-145 9194356913) K (test code = 3.7 mmol/L 3.5-5 4467186156) CL (test code = 117 mmol/L 98-108 H 6448420375) CO2 TOTAL (test code = 15 mmol/L 23-31 L 6607717722) AGAP (test code = 2-16 4983290001) BUN (test code = 7 mg/dL 7-23 2203097686) GLUCOSE (test code = 204 mg/dL 70-110 H 5323954624) CREATININE (test code = 0.41 mg/dL 0.6-1.25 L 5674724069) CALCIUM (test code = 8.3 mg/dL 8.6-10.6 L 2943505942) eGFR (test code = mL/min/1.73m2 0998388144) ARPITA (test code = ARPITA) Association of [...] tests). Lab Interpretation Abnormal (test code = 19335-6) [facility] GLUCOSE (AUTOMATED)2022-02-15 15:54:35 Test Item Value Reference Range Interpretation Comments POCT GLU (test code = 4735825880) 200 mg/dL 70-110 H Lab Interpretation (test code = Abnormal 91292-7) [facility] GLUCOSE (AUTOMATED)2022-02-15 15:54:35 Test Item Value Reference Range Interpretation Comments POCT GLU (test code = 9384792534) 200 mg/dL 70-110 H Lab Interpretation (test code = Abnormal 01061-5) [facility] GLUCOSE (AUTOMATED)2022-02-15 14:57:17 Test Item Value Reference Range Interpretation Comments POCT GLU (test code = 4752147525) 211 mg/dL 70-110 H Lab Interpretation (test code = Abnormal 28643-9) [facility] GLUCOSE (AUTOMATED)2022-02-15 14:57:17 Test Item Value Reference Range Interpretation Comments POCT GLU (test code = 4794695296) 211 mg/dL 70-110 H Lab Interpretation (test code = Abnormal 45389-6) [facility] GLUCOSE (AUTOMATED)2022-02-15 13:50:06 Test Item Value Reference Range Interpretation Comments POCT GLU (test code = 6464730067) 216 mg/dL 70-110 H Lab Interpretation (test code = Abnormal 80970-6) [facility] GLUCOSE (AUTOMATED)2022-02-15 13:50:06 Test Item Value Reference Range Interpretation Comments POCT GLU (test code = 7442483626) 216 mg/dL 70-110 H Lab Interpretation (test code = Abnormal 89259-9) [facility] GLUCOSE (AUTOMATED)2022-02-15 10:43:13 Test Item Value Reference Range Interpretation Comments POCT GLU (test code = 9139016394) 199 mg/dL 70-110 H Lab Interpretation (test code = Abnormal 34764-1) [facility] GLUCOSE (AUTOMATED)2022-02-15 10:43:13 Test Item Value Reference Range Interpretation Comments POCT GLU (test code = 8786529499) 199 mg/dL 70-110 H Lab Interpretation (test code = Abnormal 92715-9) [facility] GLUCOSE (AUTOMATED)2022-02-15 09:31:59 Test Item Value Reference Range Interpretation Comments POCT GLU (test code = 7644748680) 172 mg/dL 70-110 H Lab Interpretation (test code = Abnormal 19266-5) [facility] GLUCOSE (AUTOMATED)2022-02-15 09:31:59 Test Item Value Reference Range Interpretation Comments POCT GLU (test code = 9696175875) 172 mg/dL 70-110 H Lab Interpretation (test code = Abnormal 30327-7) [facility] Metabolic Panel (Na, K, Cl, CO2, Glucose, BUN, Creatinine, Ca)2022-02-15 08:02:13 Test Item Value Reference Range Interpretation Comments NA (test code = 140 mmol/L 135-145 7757339396) K (test code = 3.8 mmol/L 3.5-5 8222015611) CL (test code = 110 mmol/L 98-108 H 5127453458) CO2 TOTAL (test code = 13 mmol/L 23-31 L 8351280511) AGAP (test code = 2-16 H 9123806195) BUN (test code = 10 mg/dL 7-23 7440825022) GLUCOSE (test code = 223 mg/dL 70-110 H 1446250975) CREATININE (test code = 0.58 mg/dL 0.6-1.25 L 3475824375) CALCIUM (test code = 8.8 mg/dL 8.6-10.6 4317839935) eGFR (test code = mL/min/1.73m2 0364656020) ARPITA (test code = ARPITA) Association of [...] tests). Lab Interpretation Abnormal (test code = 56944-2) [facility] Metabolic Panel (Na, K, Cl, CO2, Glucose, BUN, Creatinine, Ca)2022-02-15 08:02:13 Test Item Value Reference Range Interpretation Comments NA (test code = 140 mmol/L 135-145 4241720589) K (test code = 3.8 mmol/L 3.5-5 5223306546) CL (test code = 110 mmol/L 98-108 H 1938938239) CO2 TOTAL (test code = 13 mmol/L 23-31 L 0240154148) AGAP (test code = 2-16 H 2012357585) BUN (test code = 10 mg/dL 7-23 1100860957) GLUCOSE (test code = 223 mg/dL 70-110 H 4921874331) CREATININE (test code = 0.58 mg/dL 0.6-1.25 L 5326431719) CALCIUM (test code = 8.8 mg/dL 8.6-10.6 5756304788) eGFR (test code = mL/min/1.73m2 1765995655) ARPITA (test code = ARPITA) Association of [...] tests). Lab Interpretation Abnormal (test code = 53717-5) [facility] GLUCOSE (AUTOMATED)2022-02-15 07:26:01 Test Item Value Reference Range Interpretation Comments POCT GLU (test code = 3811848068) 245 mg/dL 70-110 H Lab Interpretation (test code = Abnormal 91154-6) [facility] GLUCOSE (AUTOMATED)2022-02-15 07:26:01 Test Item Value Reference Range Interpretation Comments POCT GLU (test code = 4944597038) 245 mg/dL 70-110 H Lab Interpretation (test code = Abnormal 99247-9) [facility] GLUCOSE(AGE >30DAYS)2022-02-15 07:11:00 Test Item Value Reference Range Interpretation Comments POCT Glu (age>30days) (test code = 245 mg/dL 70-110 3342) Lab Interpretation (test code = Normal 60867-7) [facility] GLUCOSE(AGE >30DAYS)2022-02-15 07:11:00 Test Item Value Reference Range Interpretation Comments POCT Glu (age>30days) (test code = 245 mg/dL 70-110 3342) Lab Interpretation (test code = Normal 77017-5) [facility] GLUCOSE(AGE >30DAYS)2022-02-15 07:11:00 Test Item Value Reference Range Interpretation Comments POCT Glu (age>30days) (test code = 245 mg/dL 70-110 3342) Lab Interpretation (test code = Normal 13586-1) [facility] 05:57:25 Test Item Value Reference Range Interpretation Comments HGB A1C (test code = 12.7 % 4-5.7 H 4548-4) ARPITA (test code = ARPITA) Reference RangesNormal: <5.7%Prediabetes: 5.7 - 6.4%Diabetes: > 6.5% Lab Interpretation (test Abnormal code = 33493-1) [facility] 05:57:25 Test Item Value Reference Range Interpretation Comments HGB A1C (test code = 12.7 % 4-5.7 H 4548-4) ARPITA (test code = ARPITA) Reference RangesNormal: <5.7%Prediabetes: 5.7 - 6.4%Diabetes: > 6.5% Lab Interpretation (test Abnormal code = 38660-6) [facility] 05:57:25 Test Item Value Reference Range Interpretation Comments HGB A1C (test code = 12.7 % 4-5.7 H 4548-4) ARPITA (test code = ARPITA) Reference RangesNormal: <5.7%Prediabetes: 5.7 - 6.4%Diabetes: > 6.5% Lab Interpretation (test Abnormal code = 00817-3) [id number] 05:46:44 Test Item Value Reference Range Interpretation Comments MAGNESIUM (test code = 8665561446) 1.7 mg/dL 1.7-2.4 Lab Interpretation (test code = Normal 53470-1) [facility] Phulh9025-79-58 05:46:44 Test Item Value Reference Range Interpretation Comments MAGNESIUM (test code = 9779848686) 1.7 mg/dL 1.7-2.4 Lab Interpretation (test code = Normal 79593-9) [facility] [id number] 05:46:24 Test Item Value Reference Range Interpretation Comments PHOSPHORUS (test code = 4763072537) 4.0 mg/dL 2.5-5 Lab Interpretation (test code = Normal 29877-7) [facility] Qxvvz5675-68-14 05:46:24 Test Item Value Reference Range Interpretation Comments PHOSPHORUS (test code = 1259503783) 4.0 mg/dL 2.5-5 Lab Interpretation (test code = Normal 78518-8) [facility] Adiwr2350-38-51 05:46:24 Test Item Value Reference Range Interpretation Comments PHOSPHORUS (test code = 4099259673) 4.0 mg/dL 2.5-5 Lab Interpretation (test code = Normal 81316-0) [facility] GLUCOSE (AUTOMATED)2022-02-15 05:11:10 Test Item Value Reference Range Interpretation Comments POCT GLU (test code = 6368886909) 410 mg/dL 70-110 H Lab Interpretation (test code = Abnormal 15509-4) [facility] GLUCOSE (AUTOMATED)2022-02-15 05:11:10 Test Item Value Reference Range Interpretation Comments POCT GLU (test code = 4121739282) 410 mg/dL 70-110 H Lab Interpretation (test code = Abnormal 46048-1) [facility] GLUCOSE(AGE >30DAYS)2022-02-15 05:11:00 Test Item Value Reference Range Interpretation Comments POCT Glu (age>30days) (test code = 410 mg/dL 70-110 A 3342) Lab Interpretation (test code = Abnormal 73228-7) [facility] GLUCOSE(AGE >30DAYS)2022-02-15 05:11:00 Test Item Value Reference Range Interpretation Comments POCT Glu (age>30days) (test code = 410 mg/dL 70-110 A 3342) Lab Interpretation (test code = Abnormal 04972-2) [facility] WITH [id number] 05:03:57 Test Item Value Reference Range Interpretation Comments WBC (test code = See_Comment [Automated 3890-2) message] The sy stem which generated this [...] RDW-SD (test code = 44.1 fL 38.5-51.6 08703-4) RDW-CV (test code = 13.8 % 12.1-15.4 788-0) PLT (test code = See_Comment H [Automated 777-3) message] The sy stem which generated this result transmitted reference range : 150 - 328 10*3/ ?L. The reference r boubacar was not used to interpret this result as normal/abnormal . MPV (test code = 12.2 fL 9.8-13 77685-0) IPF % (test code = 9.4 % 1.2-10.7 Platelet count 3965778220) measured by fluorescence method. NRBC/100 WBC (test See_Comment [Automat ed code = 9423226750) message] The system which generated this result transmitted reference range : 0.0 - 10.0 /100 WBCs. The refer ence range was not u sed to interpret th is result as normal/abnormal . NRBC x10^3 (test code See_Comment [Auto mated = 7761695489) message] The s ystem which generated this result transmitted reference range : 10*3/?L. The reference range was not used to interpret this result as normal/abnormal . GRAN MAT (NEUT) % 65.1 % (test code = 770-8) IMM GRAN % (test code 1.10 % = 0683194656) LYMPH % (test code = 22.4 % 736-9) MONO % (test code = 9.8 % 5905-5) EOS % (test code = 1.4 % 713-8) BASO % (test code = 0.2 % 706-2) GRAN MAT x10^3(ANC) 6.15 10*3/uL 1.99-6.95 (test code = 7696747303) IMM GRAN x10^3 (test 0.10 10*3/uL 0-0.06 H code = 3013195477) LYMPH x10^3 (test code 2.11 10*3/uL 1.09-3.23 = 731-0) MONO x10^3 (test code 0.92 10*3/uL 0.36-1.02 = 742-7) EOS x10^3 (test code = 0.13 10*3/uL 0.06-0.53 711-2) BASO x10^3 (test code 0.01-0.09 = 704-7) Lab Interpretation Abnormal (test code = 62136-5) [facility] WITH [id number] 05:03:57 Test Item Value Reference Range Interpretation Comments WBC (test code = See_Comment [Automated 4790-2) message] The sy stem which generated this result transmitted reference range : 4.20 - 10.70 10*3/?L. The reference range was not used to interpret this result as normal/abnormal . RBC (test code = See_Comment [Automated 379-8) message] The sy stem which generated this [...] RDW-SD (test code = 44.1 fL 38.5-51.6 33972-0) RDW-CV (test code = 13.8 % 12.1-15.4 788-0) PLT (test code = See_Comment H [Automated 777-3) message] The sy stem which generated this result transmitted reference range : 150 - 328 10*3/ ?L. The reference r boubacar was not used to interpret this result as normal/abnormal . MPV (test code = 12.2 fL 9.8-13 02524-8) IPF % (test code = 9.4 % 1.2-10.7 Platelet count 1946790104) measured by fluorescence method. NRBC/100 WBC (test See_Comment [Automat ed code = 3382074923) message] The system which generated this result transmitted reference range : 0.0 - 10.0 /100 WBCs. The refer ence range was not u sed to interpret th is result as normal/abnormal . NRBC x10^3 (test code See_Comment [Auto mated = 7958642987) message] The s ystem which generated this result transmitted reference range : 10*3/?L. The reference range was not used to interpret this result as normal/abnormal . GRAN MAT (NEUT) % 65.1 % (test code = 770-8) IMM GRAN % (test code 1.10 % = 6052066745) LYMPH % (test code = 22.4 % 736-9) MONO % (test code = 9.8 % 5905-5) EOS % (test code = 1.4 % 713-8) BASO % (test code = 0.2 % 706-2) GRAN MAT x10^3(ANC) 6.15 10*3/uL 1.99-6.95 (test code = 7407842318) IMM GRAN x10^3 (test 0.10 10*3/uL 0-0.06 H code = 0961604672) LYMPH x10^3 (test code 2.11 10*3/uL 1.09-3.23 = 731-0) MONO x10^3 (test code 0.92 10*3/uL 0.36-1.02 = 742-7) EOS x10^3 (test code = 0.13 10*3/uL 0.06-0.53 711-2) BASO x10^3 (test code 0.01-0.09 = 704-7) Lab Interpretation Abnormal (test code = 59788-9) [facility] METABOLIC PANEL (NA, K, CL, CO2, GLUCOSE, BUN, CREATININE, CA)2022-02-15 04:46:12 Test Item Value Reference Range Interpretation Comments NA (test code = 136 mmol/L 135-145 7796969108) K (test code = 5.1 mmol/L 3.5-5 H 3150740009) CL (test code = 106 mmol/L 98-108 1772653528) CO2 TOTAL (test code = 9 mmol/L 23-31 L 0757019882) AGAP (test code = 2-16 H 9296344689) BUN (test code = 11 mg/dL 7-23 8561914577) GLUCOSE (test code = 405 mg/dL 70-110 H 7589897207) CREATININE (test code = 0.62 mg/dL 0.6-1.25 4286975409) CALCIUM (test code = 9.5 mg/dL 8.6-10.6 3147370654) eGFR (test code = mL/min/1.73m2 8089761036) ARPITA (test code = ARPITA) Association of [...] tests). Lab Interpretation Abnormal (test code = 48040-9) [facility] (NA, K, CL, CO2, GLUCOSE, BUN, CREATININE, CA)2022-02-15 04:46:12 Test Item Value Reference Range Interpretation Comments NA (test code = 136 mmol/L 135-145 7569082467) K (test code = 5.1 mmol/L 3.5-5 H 8750697586) CL (test code = 106 mmol/L 98-108 2526853279) CO2 TOTAL (test code = 9 mmol/L 23-31 L 8098817144) AGAP (test code = 2-16 H 9821892461) BUN (test code = 11 mg/dL 7-23 2127562072) GLUCOSE (test code = 405 mg/dL 70-110 H 2932241747) CREATININE (test code = 0.62 mg/dL 0.6-1.25 1944967705) CALCIUM (test code = 9.5 mg/dL 8.6-10.6 7158665840) eGFR (test code = mL/min/1.73m2 2223505664) ARPITA (test code = ARPITA) Association of [...] tests). Lab Interpretation Abnormal (test code = 11372-8) [facility] / [id number] 04:43:36 Test Item Value Reference Range Interpretation Comments PROTIME PATIENT (test See_Comment [Auto mated message] code = 5964-2) The system Higgle generated this result transmitted ref erence range: 12.0 - 1 4.7 Seconds. The re ference range was not u sed to interpret this result as normal/abnor mal. INR (test code = 6301-6) Nor mal INR <1.1; Warfarin Therap eutic range 2.0 to 3. 0 or 2.5 to 3.5, dep ending upon the indica tions. Lab Interpretation (test Normal code = 88634-0) [facility] / [id number] 04:43:36 Test Item Value Reference Range Interpretation Comments PROTIME PATIENT (test See_Comment [Auto mated message] code = 5964-2) The system Higgle generated this result transmitted ref erence range: 12.0 - 1 4.7 Seconds. The re ference range was not u sed to interpret this result as normal/abnor mal. INR (test code = 6301-6) Nor mal INR <1.1; Warfarin Therap eutic range 2.0 to 3. 0 or 2.5 to 3.5, dep ending upon the indica tions. Lab Interpretation (test Normal code = 96336-3) [facility] / [id number] 04:43:36 Test Item Value Reference Range Interpretation Comments PROTIME PATIENT (test See_Comment [Auto mated message] code = 5964-2) The system Higgle generated this result transmitted ref erence range: 12.0 - 1 4.7 Seconds. The re ference range was not u sed to interpret this result as normal/abnor mal. INR (test code = 6301-6) Nor mal INR <1.1; Warfarin Therap eutic range 2.0 to 3. 0 or 2.5 to 3.5, dep ending upon the indica tions. Lab Interpretation (test Normal code = 20002-6) [facility]48814[facility] (ALB,T.PRO,BILI T,BU/BC,ALT,AST,ALK PHOS)2022-02-15 04:40:15 Test Item Value Reference Range Interpretation Comments TOTAL BILI (test code = 4765532875) 0.9 mg/dL 0.1-1.1 BILI UNCON (test code = 8613602463) 0.3 mg/dL 0.1-1.1 BILI CONJ (test code = 4594671145) 0.0 mg/dL 0-0.3 T PROTEIN (test code = 9836396557) 7.5 g/dL 6.3-8.2 ALBUMIN (test code = 5015465457) 4.0 g/dL 3.5-5 ALK PHOS (test code = 3058512516) 166 U/L 34-122 H ALTv (test code = 1742-6) 28 U/L 5-50 AST(SGOT) (test code = 6092642388) 22 U/L 13-40 Lab Interpretation (test code = Abnormal 54920-9) [facility] (30008[facility] (ALB,T.PRO,BILI T,BU/BC,ALT,AST,ALK PHOS)2022-02-15 04:40:15 Test Item Value Reference Range Interpretation Comments TOTAL BILI (test code = 1582750683) 0.9 mg/dL 0.1-1.1 BILI UNCON (test code = 0843125655) 0.3 mg/dL 0.1-1.1 BILI CONJ (test code = 5064182013) 0.0 mg/dL 0-0.3 T PROTEIN (test code = 7125443726) 7.5 g/dL 6.3-8.2 ALBUMIN (test code = 1043647193) 4.0 g/dL 3.5-5 ALK PHOS (test code = 5770170496) 166 U/L 34-122 H ALTv (test code = 1742-6) 28 U/L 5-50 AST(SGOT) (test code = 8648218201) 22 U/L 13-40 Lab Interpretation (test code = Abnormal 22873-0) [facility] (70388[facility] (ALB,T.PRO,BILI T,BU/BC,ALT,AST,ALK PHOS)2022-02-15 04:40:15 Test Item Value Reference Range Interpretation Comments TOTAL BILI (test code = 0453044000) 0.9 mg/dL 0.1-1.1 BILI UNCON (test code = 4524692772) 0.3 mg/dL 0.1-1.1 BILI CONJ (test code = 6865607488) 0.0 mg/dL 0-0.3 T PROTEIN (test code = 5393351563) 7.5 g/dL 6.3-8.2 ALBUMIN (test code = 9998844923) 4.0 g/dL 3.5-5 ALK PHOS (test code = 2075599616) 166 U/L 34-122 H ALTv (test code = 1742-6) 28 U/L 5-50 AST(SGOT) (test code = 0078043830) 22 U/L 13-40 Lab Interpretation (test code = Abnormal 47232-2) [facility] 04:40:00 Test Item Value Reference Range Interpretation Comments LIPASE (test code = 3691613801) 239 U/L 0-220 H Lab Interpretation (test code = Abnormal 33099-2) [facility] 04:40:00 Test Item Value Reference Range Interpretation Comments LIPASE (test code = 3930523632) 239 U/L 0-220 H Lab Interpretation (test code = Abnormal 99381-7) [facility] 04:40:00 Test Item Value Reference Range Interpretation Comments LIPASE (test code = 1233209087) 239 U/L 0-220 H Lab Interpretation (test code = Abnormal 68596-1) [id number]:26 Test Item Value Reference Range Interpretation Comments Blood Culture-Aerobic No organisms No growth Previo us (test code = 91391-4) isolated prelim inary verified result was Culture [...] Culture-Anaerobic isolated preliminar y (test code = 75155-8) verifi ed result was Culture In Progress [...] CDT Lab Interpretation Normal (test code = 34064-2) [facility] GLUCOSE (AUTOMATED)2022-02-10 19:39:16 Test Item Value Reference Range Interpretation Comments POCT GLU (test code = 6735392898) 153 mg/dL 70-110 H Lab Interpretation (test code = Abnormal 86329-6) [facility] GLUCOSE (AUTOMATED)2022-02-10 16:42:59 Test Item Value Reference Range Interpretation Comments POCT GLU (test code = 7633601336) 311 mg/dL 70-110 H Lab Interpretation (test code = Abnormal 59474-7) [facility] GLUCOSE (AUTOMATED)2022-02-10 01:48:17 Test Item Value Reference Range Interpretation Comments POCT GLU (test code = 8033403181) 253 mg/dL 70-110 H Lab Interpretation (test code = Abnormal 81114-1) [facility] GLUCOSE (AUTOMATED)2022-02-09 21:48:07 Test Item Value Reference Range Interpretation Comments POCT GLU (test code = 4477350820) 279 mg/dL 70-110 H Lab Interpretation (test code = Abnormal 04902-9) [facility] GLUCOSE (AUTOMATED)2022-02-09 16:48:09 Test Item Value Reference Range Interpretation Comments POCT GLU (test code = 0064299198) 275 mg/dL 70-110 H Lab Interpretation (test code = Abnormal 97383-5) [facility] METABOLIC PANEL (NA, K, CL, CO2, GLUCOSE, BUN, CREATININE, CA)2022-02-09 15:41:54 Test Item Value Reference Range Interpretation Comments NA (test code = 148 mmol/L 135-145 H 4698990594) K (test code = 4.3 mmol/L 3.5-5 7465124044) CL (test code = 123 mmol/L 98-108 H 4741297749) CO2 TOTAL (test code = 19 mmol/L 23-31 L 2166031552) AGAP (test code = 2-16 0516979992) BUN (test code = 23 mg/dL 7-23 2862051610) GLUCOSE (test code = 305 mg/dL 70-110 H 6904462005) CREATININE (test code = 0.61 mg/dL 0.6-1.25 0364007336) CALCIUM (test code = 8.5 mg/dL 8.6-10.6 L 2833456817) eGFR (test code = mL/min/1.73m2 1772064249) ARPITA (test code = ARPITA) Association of [...] tests). Lab Interpretation Abnormal (test code = 32551-0) [facility] 15:17:07 Test Item Value Reference Range Interpretation Comments MAGNESIUM (test code = 4866390920) 1.8 mg/dL 1.7-2.4 Lab Interpretation (test code = Normal 37062-6) [facility]22[facility] 15:17:07 Test Item Value Reference Range Interpretation Comments PHOSPHORUS (test code = 4247088941) 2.2 mg/dL 2.5-5 L Lab Interpretation (test code = Abnormal 60288-9) [facility] GLUCOSE (AUTOMATED)2022-02-09 12:48:51 Test Item Value Reference Range Interpretation Comments POCT GLU (test code = 1418360667) 274 mg/dL 70-110 H Lab Interpretation (test code = Abnormal 46719-5) [facility] GLUCOSE (AUTOMATED)2022-02-09 01:10:30 Test Item Value Reference Range Interpretation Comments POCT GLU (test code = 4342600968) 248 mg/dL 70-110 H Lab Interpretation (test code = Abnormal 33599-2) [facility] GLUCOSE (AUTOMATED)2022-02-09 01:10:30 Test Item Value Reference Range Interpretation Comments POCT GLU (test code = 0276551830) 300 mg/dL 70-110 H Lab Interpretation (test code = Abnormal 84957-0) [facility] GLUCOSE (AUTOMATED)2022-02-08 16:52:44 Test Item Value Reference Range Interpretation Comments POCT GLU (test code = 6670585747) 296 mg/dL 70-110 H Lab Interpretation (test code = Abnormal 56928-2) [facility] GLUCOSE (AUTOMATED)2022-02-08 16:52:43 Test Item Value Reference Range Interpretation Comments POCT GLU (test code = 3325632550) 345 mg/dL 70-110 H Lab Interpretation (test code = Abnormal 26553-8) [facility] GLUCOSE (AUTOMATED)2022-02-08 16:52:38 Test Item Value Reference Range Interpretation Comments POCT GLU (test code = 7081715831) 363 mg/dL 70-110 H Lab Interpretation (test code = Abnormal 22897-0) [facility] GLUCOSE (AUTOMATED)2022-02-08 16:52:38 Test Item Value Reference Range Interpretation Comments POCT GLU (test code = 3684761905) 444 mg/dL 70-110 H Lab Interpretation (test code = Abnormal 90994-4) [facility] GLUCOSE (AUTOMATED)2022-02-08 16:52:38 Test Item Value Reference Range Interpretation Comments POCT GLU (test code = 0391546828) 324 mg/dL 70-110 H Lab Interpretation (test code = Abnormal 69829-8) [facility] GLUCOSE (AUTOMATED)2022-02-08 16:52:38 Test Item Value Reference Range Interpretation Comments POCT GLU (test code = 3805463348) 303 mg/dL 70-110 H Lab Interpretation (test code = Abnormal 55728-6) [facility] GLUCOSE (AUTOMATED)2022-02-08 16:52:38 Test Item Value Reference Range Interpretation Comments POCT GLU (test code = 1184975520) 288 mg/dL 70-110 H Lab Interpretation (test code = Abnormal 03100-4) [facility] GLUCOSE (AUTOMATED)2022-02-08 16:37:12 Test Item Value Reference Range Interpretation Comments POCT GLU (test code = 6512787353) 241 mg/dL 70-110 H Lab Interpretation (test code = Abnormal 13171-7) [facility] GLUCOSE (AUTOMATED)2022-02-08 13:14:11 Test Item Value Reference Range Interpretation Comments POCT GLU (test code = 6328196781) 264 mg/dL 70-110 H Lab Interpretation (test code = Abnormal 32089-9) [facility] GLUCOSE (AUTOMATED)2022-02-08 11:04:52 Test Item Value Reference Range Interpretation Comments POCT GLU (test code = 4872864590) 257 mg/dL 70-110 H Lab Interpretation (test code = Abnormal 74913-6) [facility] GLUCOSE (AUTOMATED)2022-02-08 07:51:27 Test Item Value Reference Range Interpretation Comments POCT GLU (test code = 2964876539) 228 mg/dL 70-110 H Lab Interpretation (test code = Abnormal 24703-0) [facility] GLUCOSE (AUTOMATED)2022-02-08 03:43:14 Test Item Value Reference Range Interpretation Comments POCT GLU (test code = 7108790100) 269 mg/dL 70-110 H Lab Interpretation (test code = Abnormal 07430-8) [facility] GLUCOSE (AUTOMATED)2022-02-08 00:53:27 Test Item Value Reference Range Interpretation Comments POCT GLU (test code = 6816799550) 342 mg/dL 70-110 H Lab Interpretation (test code = Abnormal 67787-8) [facility] Metabolic Panel (Na, K, Cl, CO2, Glucose, BUN, Creatinine, Ca)2022-02-08 00:26:35 Test Item Value Reference Range Interpretation Comments NA (test code = 161 mmol/L 135-145 HH 2503716550) K (test code = 5.3 mmol/L 3.5-5 H 8977196603) CL (test code = 131 mmol/L 98-108 H 3130541387) CO2 TOTAL (test code = 14 mmol/L 23-31 L 6441533099) AGAP (test code = 2-16 8544321276) BUN (test code = 40 mg/dL 7-23 H 4434722386) GLUCOSE (test code = 363 mg/dL 70-110 H 8259158608) CREATININE (test code = 1.31 mg/dL 0.6-1.25 H 8394919724) CALCIUM (test code = 9.0 mg/dL 8.6-10.6 7059069913) eGFR (test code = mL/min/1.73m2 7524942553) ARPITA (test code = ARPITA) Association of [...] tests). Lab Interpretation Abnormal (test code = 63587-3) [facility] GLUCOSE (AUTOMATED)2022-02-07 22:31:31 Test Item Value Reference Range Interpretation Comments POCT GLU (test code = 1426461732) 349 mg/dL 70-110 H Lab Interpretation (test code = Abnormal 76176-6) [facility] GLUCOSE (AUTOMATED)2022-02-07 20:57:05 Test Item Value Reference Range Interpretation Comments POCT GLU (test code = 5065237658) 70-110 HH Lab Interpretation (test code = Abnormal 58228-6) [facility] GLUCOSE (AUTOMATED)2022-02-07 20:57:00 Test Item Value Reference Range Interpretation Comments POCT GLU (test code = 6997673019) 70-110 HH Lab Interpretation (test code = Abnormal 93248-5) [facility] GLUCOSE (AUTOMATED)2022-02-07 20:57:00 Test Item Value Reference Range Interpretation Comments POCT GLU (test code = 9986675259) 70-110 HH Lab Interpretation (test code = Abnormal 80371-9) [facility] GLUCOSE (AUTOMATED)2022-02-07 20:57:00 Test Item Value Reference Range Interpretation Comments POCT GLU (test code = 7902252355) 70-110 HH Lab Interpretation (test code = Abnormal 86047-4) [facility] Whole [id number] 12:58:42 Test Item Value Reference Range Interpretation Comments LACTIC ACID (test code = 4.32 mmol/L 0.5-2.2 H 7227247865) Lab Interpretation (test code = Abnormal 89539-3) [facility] TylerPhosphorus [id number] 03:51:48 Test Item Value Reference Range Interpretation Comments PHOSPHORUS (test code = 6.7 mg/dL 2.5-5 H Slig ht hemolysis 5989129056) Lab Interpretation (test Abnormal code = 66767-5) [facility] TylerMagnesium [id number] 03:51:48 Test Item Value Reference Range Interpretation Comments MAGNESIUM (test code = 9789306603) 2.8 mg/dL 1.7-2.4 H Lab Interpretation (test code = Abnormal 71019-5) [facility] TylerCOMP[facility] METABOLIC PANEL (48555)2022-02-07 02:16:52 Test Item Value Reference Range Interpretation Comments NA (test code = 166 mmol/L 135-145 HH 1670392620) K (test code = 5.2 mmol/L 3.5-5 H 9290287682) CL (test code = 123 mmol/L 98-108 H 7165609378) CO2 TOTAL (test code = 12 mmol/L 23-31 L 2131984423) AGAP (test code = 2-16 H 1265214164) BUN (test code = 35 mg/dL 7-23 H 2479412707) GLUCOSE (test code = 941 mg/dL 70-110 HH 6366287120) CREATININE (test code = 1.51 mg/dL 0.6-1.25 H 1237907827) TOTAL BILI (test code = 1.1 mg/dL 0.1-1.4 4514271230) CALCIUM (test code = 10.7 mg/dL 8.6-10.6 H 0087880497) T PROTEIN (test code = 8.2 g/dL 6.3-8.2 2795172978) ALBUMIN (test code = 4.5 g/dL 3.5-5 1243279704) ALK PHOS (test code = 201 U/L 34-122 H 7428405136) ALTv (test code = 43 U/L 5-50 2-6) AST(SGOT) (test code = 27 U/L 13-40 7799438541) eGFR (test code = mL/min/1.73m2 2357641720) ARPITA (test code = ARPITA) Association of [...] tests). Lab Interpretation Abnormal (test code = 99574-9) [facility] TylerFAROOQ [id number] 02:12:40 Test Item Value Reference Interpretation Comments Range TROPONIN I (test 0.005 ng/mL See_Comment [Automated code = 7775408347) message] The system which generated this result [...] biotin. Lab Interpretation Normal (test code = 70524-6) [facility]ALICYLATE20[facility] 02:06:11 SALICYLATE<10mg/L02/06/2022 9:06 PM [facility]: ? Analgesic and Antipyretic Use ? 20- 100 mg/L ? ? Anti-Inflammatory Use ? 100-250 mg/L Toxic Range: ? Greater than 300 mg/LUnMem[facility] HospitalSALICYLATE2022-07-27 02:06:11SALICYLATE<10mg/L02/06/2022 9:06 PM [facility]: ? Analgesic and Antipyretic Use ? 20-100 mg/L ? ? Anti-Inflammatory Use ? 100-250 mg/L Toxic Range: ? Greater than 300 mg/L [facility]ETHANOL2022-[facility]-27 02:05:51 ALCOHOL<10mg/dL02/06/2022 9:05 PM [facility]<10 Mcibpxyf83-262 Toxic>100 Depression of ROLLER CLEANER>400 Fatalities ReportedUnMemorial Hermann [facility] HospitalETHANOL2022-07-27 02:05:51 ALCOHOL<10mg/dL02/06/2022 9:05 PM [facility]<10 Zsljsnee48-526 Toxic>100 Depression of ROLLER CLEANER>400 Fatalities ReportedUnMemorial Hermann Katy HospitalACETAMINOPHEN2022-07-27 02:03:04 Test Item Value Reference Range Interpretation Comments ACETAMINOP (test code = 10-30 L 1276321577) ARPITA (test code = ARPITA) Toxic: Greater than 200 ug/mL @ 4 hour post ingestion or greater than 50 ug/mL @ 12 hour post ingestion Lab Interpretation (test Abnormal code = 52203-9) [facility] TylerACETAMINOPHEN2022-07-27 02:03:04 Test Item Value Reference Range Interpretation Comments ACETAMINOP (test code = 10-30 L 4050624182) ARPITA (test code = ARPITA) Toxic: Greater than 200 ug/mL @ 4 hour post ingestion or greater than 50 ug/mL @ 12 hour post ingestion Lab Interpretation (test Abnormal code = 49132-2) [facility]LIPASE2022-[facility]-27 02:01:02 Test Item Value Reference Range Interpretation Comments LIPASE (test code = 5935211722) 246 U/L 0-220 H Lab Interpretation (test code = Abnormal 27737-4) [facility] TylerCB WITH [id number] 01:12:41 Test Item Value Reference Range Interpretation Comments WBC (test code = See_Comment H [Automated 0990-2) message] The system which generated this result transmit lester reference range : 4.20 - 10.70 10*3/?L. The reference range was not used to interpret this result as normal/abnormal . RBC (test code = See_Comment H [Automated 529-8) message] The system which generated this result [...] RDW-SD (test code = 50.8 fL 38.5-51.6 01258-7) RDW-CV (test code = 16.4 % 12.1-15.4 H 788-0) PLT (test code = See_Comment H [Automated 777-3) message] The system which generated this result transmit lester reference range : 150 - 328 10*3/ ?L. The reference range was not u sed to interpret th is result as normal/abnormal . MPV (test code = 11.6 fL 9.8-13 24688-9) NRBC/100 WBC (test See_Comment [Automat ed code = 7123193302) message] The system which generated this result transmit lester reference range : 0.0 - 10.0 /100 WBCs. The reference range was not used to interpret this result as normal/abnormal . NRBC x10^3 (test code See_Comment [Auto mated = 7361407438) message] The system which generated this result transmit lester reference range : 10*3/?L. The reference range was not used to interpret this result as normal/abnormal . SEG % (test code = 77 % 33-76 H 92215-4) BAND % (test code = 9 % 0-1 H 71620-8) LYMPH % (test code = 7 % 14-54 L 63640-9) MONO % (test code = 7 % 0-4 H 31154-3) ANC (test code = 15.98 10*3/uL 1.99-6.95 H 753-4) ALBERT CELLS (test code 2+ See_Comment A [Auto mated = 4305-9) message] The system which generated this result transmit lester reference range : (none). The reference range was not used to interpret this result as normal/abnormal . Lab Interpretation Abnormal (test code = 06297-4) [facility] GLUCOSE (AUTOMATED)2022-01-27 01:30:22 Test Item Value Reference Range Interpretation Comments POCT GLU (test code = 6032904791) 392 mg/dL 70-110 H Lab Interpretation (test code = Abnormal 11848-9) [facility] GLUCOSE(AGE >30DAYS)2022-01-27 01:30:00 Test Item Value Reference Range Interpretation Comments POCT Glu (age>30days) 392 mg/dL, 70-110 (test code = 3342) [facility] Lab Interpretation (test Normal code = 89577-0) [facility] GLUCOSE (AUTOMATED)2022-01-27 00:43:22 Test Item Value Reference Range Interpretation Comments POCT GLU (test code = 0100230160) 430 mg/dL 70-110 H Lab Interpretation (test code = Abnormal 03642-4) [facility] GLUCOSE (AUTOMATED)2022-01-26 23:29:00 Test Item Value Reference Range Interpretation Comments POCT GLU (test code = 8370318306) 493 mg/dL 70-110 HH Lab Interpretation (test code = Abnormal 08979-8) [facility] METABOLIC PANEL (NA, K, CL, CO2, GLUCOSE, BUN, CREATININE, CA)2022-01-26 22:56:10 Test Item Value Reference Range Interpretation Comments NA (test code = 132 mmol/L 135-145 L 7527461395) K (test code = 4.4 mmol/L 3.5-5 7773738815) CL (test code = 98 mmol/L 98-108 1058483688) CO2 TOTAL (test code = 19 mmol/L 23-31 L 3151940885) AGAP (test code = 2-16 2121537537) BUN (test code = 11 mg/dL 7-23 9997790617) GLUCOSE (test code = 519 mg/dL 70-110 HH 6656723677) CREATININE (test code = 0.55 mg/dL 0.6-1.25 L 0601055969) CALCIUM (test code = 9.5 mg/dL 8.6-10.6 6797287410) eGFR (test code = mL/min/1.73m2 0684471467) ARPITA (test code = ARPITA) Association of [...] tests). Lab Interpretation Abnormal (test code = 21938-0) [facility] WITH [id number] 22:45:19 Test Item Value Reference Range Interpretation Comments WBC (test code = See_Comment [Automated 9463-2) message] The sy stem which generated this result transmitted reference range : 4.20 - 10.70 10*3/?L. The reference range was not used to interpret this result as normal/abnormal . RBC (test code = See_Comment [Automated 328-5) message] The sy stem which generated this [...] RDW-SD (test code = 41.7 fL 38.5-51.6 17012-5) RDW-CV (test code = 13.6 % 12.1-15.4 788-0) PLT (test code = See_Comment H [Automated 777-3) message] The sy stem which generated this result transmitted reference range : 150 - 328 10*3/ ?L. The reference r boubacar was not used to interpret this result as normal/abnormal . MPV (test code = 10.6 fL 9.8-13 86149-6) NRBC/100 WBC (test See_Comment [Automat ed code = 7858361656) message] The system which generated this result transmitted reference range : 0.0 - 10.0 /100 WBCs. The refer ence range was not u sed to interpret th is result as normal/abnormal . NRBC x10^3 (test code See_Comment [Auto mated = 6189439830) message] The s ystem which generated this result transmitted reference range : 10*3/?L. The reference range was not used to interpret this result as normal/abnormal . GRAN MAT (NEUT) % 66.6 % (test code = 770-8) IMM GRAN % (test code 0.40 % = 9972675259) LYMPH % (test code = 20.5 % 736-9) MONO % (test code = 10.9 % 5905-5) EOS % (test code = 1.5 % 713-8) BASO % (test code = 0.1 % 706-2) GRAN MAT x10^3(ANC) 4.88 10*3/uL 1.99-6.95 (test code = 1246671837) IMM GRAN x10^3 (test 0.03 10*3/uL 0-0.06 code = 1775026789) LYMPH x10^3 (test code 1.50 10*3/uL 1.09-3.23 = 731-0) MONO x10^3 (test code 0.80 10*3/uL 0.36-1.02 = 742-7) EOS x10^3 (test code = 0.11 10*3/uL 0.06-0.53 711-2) BASO x10^3 (test code 0.01-0.09 = 704-7) Lab Interpretation Abnormal (test code = 16813-7) [facility] WITH [id number] 11:05:43 Test Item Value Reference Range Interpretation [...] RDW-SD (test code = 41.7 fL 38.5-51.6 51375-9) RDW-CV (test code = 13.4 % 12.1-15.4 788-0) PLT (test code = See_Comment H [Automated 777-3) message] The sy stem which generated this result transmitted reference range : 150 - 328 10*3/ ?L. The reference r boubacar was not used to interpret this result as normal/abnormal . MPV (test code = 10.3 fL 9.8-13.0 30137-3) NRBC/100 WBC (test See_Comment [Automat ed code = 4042703893) message] The system which generated this result transmitted reference range : 0.0 - 10.0 /100 WBCs. The refer ence range was not u sed to interpret th is result as normal/abnormal . NRBC x10^3 (test code <0.01 See_Comment [Auto mated = 7446632481) message] The s ystem which generated this result transmitted reference range : 10*3/?L. The reference range was not used to interpret this result as normal/abnormal . GRAN MAT (NEUT) % 71.2 % (test code = 770-8) IMM GRAN % (test code 1.30 % = 2976643212) LYMPH % (test code = 18.2 % 736-9) MONO % (test code = 7.1 % 5905-5) EOS % (test code = 1.9 % 713-8) BASO % (test code = 0.3 % 706-2) GRAN MAT x10^3(ANC) 8.37 10*3/uL 1.99-6.95 H (test code = 0332236212) IMM GRAN x10^3 (test 0.15 10*3/uL 0.00-0.06 H code = 8803501463) LYMPH x10^3 (test code 2.14 10*3/uL 1.09-3.23 = 731-0) MONO x10^3 (test code 0.84 10*3/uL 0.36-1.02 = 742-7) EOS x10^3 (test code = 0.22 10*3/uL 0.06-0.53 711-2) BASO x10^3 (test code 0.04 10*3/uL 0.01-0.09 = 704-7) Lab Interpretation Abnormal (test code = 47868-7) [facility] METABOLIC PANEL ([id number])2022-01-17 11:03:21 Test Item Value Reference Range Interpretation Comments NA (test code = 133 mmol/L 135-145 L 2369579978) K (test code = 4.3 mmol/L 3.5-5.0 3504381052) CL (test code = 99 mmol/L 98-108 4933775847) CO2 TOTAL (test code = 20 mmol/L 23-31 L 4231598574) AGAP (test code = 2-16 6201111867) BUN (test code = 11 mg/dL 7-23 2117158608) GLUCOSE (test code = 357 mg/dL 70-110 H 5563805435) CREATININE (test code = 0.52 mg/dL 0.60-1.25 L 6854153578) TOTAL BILI (test code = 0.7 mg/dL 0.1-1.0 9131476299) CALCIUM (test code = 9.6 mg/dL 8.6-10.6 9169905565) T PROTEIN (test code = 7.5 g/dL 6.3-8.2 9705253642) ALBUMIN (test code = 4.2 g/dL 3.5-5.0 6523396705) ALK PHOS (test code = 185 U/L 34-122 H 4498505264) ALTv (test code = 78 U/L 5-50 H 1742-6) AST(SGOT) (test code = 18 U/L 13-40 8422791666) eGFR (test code = mL/min/1.73m2 9246334498) ARPITA (test code = ARPITA) Association of [...] tests). Lab Interpretation Abnormal (test code = 61220-3) [facility] Test Item Value Reference Range Interpretation Comments LIPASE (test code = 3261663693) 63 U/L 0-220 Lab Interpretation (test code = Normal 74480-4) [facility] GLUCOSE (AUTOMATED)2022-01-12 22:54:04 Test Item Value Reference Range Interpretation Comments POCT GLU (test code = 1375233048) 361 mg/dL 70-110 H Lab Interpretation (test code = Abnormal 02856-5) [facility] GLUCOSE (AUTOMATED)2022-01-12 12:19:07 Test Item Value Reference Range Interpretation Comments POCT GLU (test code = 3971659108) 390 mg/dL 70-110 H Lab Interpretation (test code = Abnormal 08840-6) [facility] GLUCOSE (AUTOMATED)2022-01-12 04:48:35 Test Item Value Reference Range Interpretation Comments POCT GLU (test code = 2448318906) 412 mg/dL 70-110 H Lab Interpretation (test code = Abnormal 66507-1) [facility] GLUCOSE (AUTOMATED)2022-01-12 01:44:33 Test Item Value Reference Range Interpretation Comments POCT GLU (test code = 8163903347) 376 mg/dL 70-110 H Lab Interpretation (test code = Abnormal 87404-3) [facility] GLUCOSE (AUTOMATED)2022-01-11 21:51:37 Test Item Value Reference Range Interpretation Comments POCT GLU (test code = 0223027386) 267 mg/dL 70-110 H Lab Interpretation (test code = Abnormal 97477-8) [facility] GLUCOSE (AUTOMATED)2022-01-11 17:05:21 Test Item Value Reference Range Interpretation Comments POCT GLU (test code = 0268198276) 377 mg/dL 70-110 H Lab Interpretation (test code = Abnormal 66011-3) [facility] GLUCOSE (AUTOMATED)2022-01-11 13:10:54 Test Item Value Reference Range Interpretation Comments POCT GLU (test code = 4276358915) 495 mg/dL 70-110 HH Lab Interpretation (test code = Abnormal 73973-4) [facility] GLUCOSE (AUTOMATED)2022-01-11 08:34:04 Test Item Value Reference Range Interpretation Comments POCT GLU (test code = 4466263179) 427 mg/dL 70-110 H Lab Interpretation (test code = Abnormal 71226-8) [facility] GLUCOSE (AUTOMATED)2022-01-11 05:46:02 Test Item Value Reference Range Interpretation Comments POCT GLU (test code = 5910596086) 451 mg/dL 70-110 HH Lab Interpretation (test code = Abnormal 93908-2) [facility] GLUCOSE (AUTOMATED)2022-01-11 02:44:38 Test Item Value Reference Range Interpretation Comments POCT GLU (test code = 3783071589) 429 mg/dL 70-110 H Lab Interpretation (test code = Abnormal 53887-5) [facility] GLUCOSE (AUTOMATED)2022-01-10 22:38:24 Test Item Value Reference Range Interpretation Comments POCT GLU (test code = 0966814465) 404 mg/dL 70-110 H Lab Interpretation (test code = Abnormal 90273-6) [facility] GLUCOSE (AUTOMATED)2022-01-10 18:05:20 Test Item Value Reference Range Interpretation Comments POCT GLU (test code = 5215462490) 423 mg/dL 70-110 H Lab Interpretation (test code = Abnormal 30477-5) [facility] METABOLIC PANEL (NA, K, CL, CO2, GLUCOSE, BUN, CREATININE, CA)2022-01-10 14:56:25 Test Item Value Reference Range Interpretation Comments NA (test code = 135 mmol/L 135-145 0907271780) K (test code = 4.0 mmol/L 3.5-5.0 1758793181) CL (test code = 102 mmol/L 98-108 2733666391) CO2 TOTAL (test code = 22 mmol/L 23-31 L 6903697314) AGAP (test code = 2-16 4577175869) BUN (test code = 13 mg/dL 7-23 9801475752) GLUCOSE (test code = 547 mg/dL 70-110 1468398080) CREATININE (test code = 0.65 mg/dL 0.60-1.25 3840841558) CALCIUM (test code = 8.6 mg/dL 8.6-10.6 6953733693) eGFR (test code = mL/min/1.73m2 5806711646) ARPITA (test code = ARPITA) Association of [...] tests). Lab Interpretation Abnormal (test code = 72450-9) [facility] GLUCOSE (AUTOMATED)2022-01-10 13:36:27 Test Item Value Reference Range Interpretation Comments POCT GLU (test code = 1253915713) 526 mg/dL 70-110 HH Lab Interpretation (test code = Abnormal 04629-6) [facility] GLUCOSE (AUTOMATED)2022-01-10 12:52:44 Test Item Value Reference Range Interpretation Comments POCT GLU (test code = 1209296305) >600 70-110 HH Lab Interpretation (test code = Abnormal 31063-6) [facility] GLUCOSE (AUTOMATED)2022-01-10 12:52:44 Test Item Value Reference Range Interpretation Comments POCT GLU (test code = 1619501117) >600 70-110 HH Lab Interpretation (test code = Abnormal 92879-3) [facility] GLUCOSE (AUTOMATED)2022-01-10 11:02:02 Test Item Value Reference Range Interpretation Comments POCT GLU (test code = 9346466392) 521 mg/dL 70-110 HH Lab Interpretation (test code = Abnormal 39107-1) [facility] GLUCOSE (AUTOMATED)2022-01-10 07:22:18 Test Item Value Reference Range Interpretation Comments POCT GLU (test code = 1986918156) 534 mg/dL 70-110 HH Lab Interpretation (test code = Abnormal 89736-6) [facility] METABOLIC PANEL (NA, K, CL, CO2, GLUCOSE, BUN, CREATININE, CA)2022-01-10 06:34:51 Test Item Value Reference Range Interpretation Comments NA (test code = 133 mmol/L 135-145 L 1861094052) K (test code = 4.9 mmol/L 3.5-5.0 Slight 4366285179) hemolysis CL (test code = 96 mmol/L 98-108 L 1932564585) CO2 TOTAL (test code 21 mmol/L 23-31 L = 5177662721) AGAP (test code = 2-16 5967575305) BUN (test code = 12 mg/dL 7-23 Slight 8676167282) hemolysis GLUCOSE (test code = 639 mg/dL 70-110 HH 4575703854) CREATININE (test code 0.46 mg/dL 0.60-1.25 L = 8374827996) CALCIUM (test code = 9.7 mg/dL 8.6-10.6 6278443943) eGFR (test code = mL/min/1.73m2 6730150285) ARPITA (test code = ARPITA) Association of [...] tests). Lab Interpretation Abnormal (test code = 70654-3) [facility] METABOLIC PANEL ([id number])2022-01-10 02:59:57 Test Item Value Reference Range Interpretation Comments NA (test code = 126 mmol/L 135-145 L 1499734723) K (test code = 5.2 mmol/L 3.5-5.0 H 6898429815) CL (test code = 89 mmol/L 98-108 L 4816241921) CO2 TOTAL (test code = 20 mmol/L 23-31 L 7946181280) AGAP (test code = 2-16 H 5804952908) BUN (test code = 12 mg/dL 7-23 6889065652) GLUCOSE (test code = 856 mg/dL 70-110 HH 3223892573) CREATININE (test code = 0.49 mg/dL 0.60-1.25 L 6735579948) TOTAL BILI (test code = 0.7 mg/dL 0.1-1.6 0589731372) CALCIUM (test code = 10.2 mg/dL 8.6-10.6 2760755754) T PROTEIN (test code = 8.2 g/dL 6.3-8.2 1218419453) ALBUMIN (test code = 4.5 g/dL 3.5-5.0 3299284433) ALK PHOS (test code = 186 U/L 34-122 H 0188626197) ALTv (test code = 27 U/L 5-50 1742-6) AST(SGOT) (test code = 18 U/L 13-40 4139819080) eGFR (test code = mL/min/1.73m2 9507002657) ARPITA (test code = ARPITA) Association of [...] tests). Lab Interpretation Abnormal (test code = 28387-5) [facility] Test Item Value Reference Range Interpretation Comments LIPASE (test code = 6970465670) 146 U/L 0-220 Lab Interpretation (test code = Normal 89906-6) [facility] WITH [id number] 02:34:07 Test Item Value Reference Range Interpretation [...] RDW-SD (test code = 42.0 fL 38.5-51.6 82830-9) RDW-CV (test code = 13.5 % 12.1-15.4 788-0) PLT (test code = See_Comment H [Automated 777-3) message] The sy stem which generated this result transmitted reference range : 150 - 328 10*3/ ?L. The reference r boubacar was not used to interpret this result as normal/abnormal . MPV (test code = 10.5 fL 9.8-13.0 48467-4) NRBC/100 WBC (test See_Comment [Automat ed code = 2039080813) message] The system which generated this result transmitted reference range : 0.0 - 10.0 /100 WBCs. The refer ence range was not u sed to interpret th is result as normal/abnormal . NRBC x10^3 (test code <0.01 See_Comment [Auto mated = 6238699941) message] The s ystem which generated this result transmitted reference range : 10*3/?L. The reference range was not used to interpret this result as normal/abnormal . GRAN MAT (NEUT) % 67.5 % (test code = 770-8) IMM GRAN % (test code 0.70 % = 2493071593) LYMPH % (test code = 21.7 % 736-9) MONO % (test code = 8.4 % 5905-5) EOS % (test code = 1.3 % 713-8) BASO % (test code = 0.4 % 706-2) GRAN MAT x10^3(ANC) 6.61 10*3/uL 1.99-6.95 (test code = 7044147185) IMM GRAN x10^3 (test 0.07 10*3/uL 0.00-0.06 H code = 8486053788) LYMPH x10^3 (test code 2.12 10*3/uL 1.09-3.23 = 731-0) MONO x10^3 (test code 0.82 10*3/uL 0.36-1.02 = 742-7) EOS x10^3 (test code = 0.13 10*3/uL 0.06-0.53 711-2) BASO x10^3 (test code 0.04 10*3/uL 0.01-0.09 = 704-7) Lab Interpretation Abnormal (test code = 72526-3) [id number] (ALB,T.PRO,BILI T,BU/BC,ALT,AST,ALK PHOS)2022-01-06 13:57:09 Test Item Value Reference Range Interpretation Comments TOTAL BILI (test code = 1351095553) 0.7 mg/dL 0.1-1.1 BILI UNCON (test code = 3096600663) 0.3 mg/dL 0.1-1.1 BILI CONJ (test code = 3777836532) 0.0 mg/dL 0.0-0.3 T PROTEIN (test code = 7223804602) 7.5 g/dL 6.3-8.2 ALBUMIN (test code = 2910457610) 3.8 g/dL 3.5-5.0 ALK PHOS (test code = 1536510851) 161 U/L 34-122 H ALTv (test code = 1742-6) 44 U/L 5-50 AST(SGOT) (test code = 6770486043) 47 U/L 13-40 H Lab Interpretation (test code = Abnormal 38534-0) [facility] METABOLIC PANEL (NA, K, CL, CO2, GLUCOSE, BUN, CREATININE, CA)2022-01-06 10:48:59 Test Item Value Reference Range Interpretation Comments NA (test code = 136 mmol/L 135-145 8694304139) K (test code = 3.8 mmol/L 3.5-5.0 1482939113) CL (test code = 101 mmol/L 98-108 9218235684) CO2 TOTAL (test code = 22 mmol/L 23-31 L 7835259491) AGAP (test code = 2-16 2819344733) BUN (test code = 16 mg/dL 7-23 6454959977) GLUCOSE (test code = 358 mg/dL 70-110 H 6872895339) CREATININE (test code = 0.63 mg/dL 0.60-1.25 8577103487) CALCIUM (test code = 9.2 mg/dL 8.6-10.6 6518022799) eGFR (test code = mL/min/1.73m2 3388467483) ARPITA (test code = ARPITA) Association of [...] tests). Lab Interpretation Abnormal (test code = 70745-9) [facility] WITH [id number] 10:01:35 Test Item Value Reference Range Interpretation [...] RDW-SD (test code = 41.6 fL 38.5-51.6 61683-8) RDW-CV (test code = 13.4 % 12.1-15.4 788-0) PLT (test code = See_Comment H [Automated 777-3) message] The sy stem which generated this result transmitted reference range : 150 - 328 10*3/ ?L. The reference r boubacar was not used to interpret this result as normal/abnormal . MPV (test code = 11.0 fL 9.8-13.0 79728-9) NRBC/100 WBC (test See_Comment [Automat ed code = 3274720984) message] The system which generated this result transmitted reference range : 0.0 - 10.0 /100 WBCs. The refer ence range was not u sed to interpret th is result as normal/abnormal . NRBC x10^3 (test code <0.01 See_Comment [Auto mated = 8589215294) message] The s ystem which generated this result transmitted reference range : 10*3/?L. The reference range was not used to interpret this result as normal/abnormal . GRAN MAT (NEUT) % 62.6 % (test code = 770-8) IMM GRAN % (test code 0.40 % = 5907374087) LYMPH % (test code = 23.2 % 736-9) MONO % (test code = 9.6 % 5905-5) EOS % (test code = 3.8 % 713-8) BASO % (test code = 0.4 % 706-2) GRAN MAT x10^3(ANC) 4.76 10*3/uL 1.99-6.95 (test code = 9414190662) IMM GRAN x10^3 (test 0.03 10*3/uL 0.00-0.06 code = 6645312226) LYMPH x10^3 (test code 1.76 10*3/uL 1.09-3.23 = 731-0) MONO x10^3 (test code 0.73 10*3/uL 0.36-1.02 = 742-7) EOS x10^3 (test code = 0.29 10*3/uL 0.06-0.53 711-2) BASO x10^3 (test code 0.03 10*3/uL 0.01-0.09 = 704-7) Lab Interpretation Abnormal (test code = 76029-7) [facility]00065[facility]-05 04:36:59 Test Item Value Reference Range Interpretation Comments NA (test code = 138 mmol/L 135-145 9497434114) K (test code = 5.4 mmol/L 3.5-5.0 H 9966161082) CL (test code = 98 mmol/L 98-108 6234676147) CO2 TOTAL (test code = 17 mmol/L 23-31 L 2381589964) AGAP (test code = 2-16 H 0953496489) BUN (test code = 19 mg/dL 7-23 5579592181) GLUCOSE (test code = 469 mg/dL 70-110 HH 9503173056) CREATININE (test code = 0.74 mg/dL 0.60-1.25 7937605675) TOTAL BILI (test code = 1.0 mg/dL 0.1-1.6 9673882188) CALCIUM (test code = 10.1 mg/dL 8.6-10.6 0513373447) T PROTEIN (test code = 8.2 g/dL 6.3-8.2 0566480437) ALBUMIN (test code = 4.6 g/dL 3.5-5.0 2954816357) ALK PHOS (test code = 208 U/L 34-122 H 3528782710) ALTv (test code = 51 U/L 5-50 H 1742-6) AST(SGOT) (test code = 18 U/L 13-40 0967237003) eGFR (test code = mL/min/1.73m2 6665633880) ARPITA (test code = ARPITA) Association of [...] tests). Lab Interpretation Abnormal (test code = 60541-6) [facility] 04:[facility]:02 Test Item Value Reference Range Interpretation Comments LIPASE (test code = 9801673497) 137 U/L 0-220 Lab Interpretation (test code = Normal 03442-2) [facility] [id number] 04:07:59 Test Item Value Reference Range Interpretation [...] RDW-SD (test code = 42.6 fL 38.5-51.6 59024-0) RDW-CV (test code = 13.6 % 12.1-15.4 788-0) PLT (test code = See_Comment H [Automated 777-3) message] The sy stem which generated this result transmitted reference range : 150 - 328 10*3/ ?L. The reference r boubacar was not used to interpret this result as normal/abnormal . MPV (test code = 10.7 fL 9.8-13.0 89089-9) NRBC/100 WBC (test See_Comment [Automat ed code = 8538084037) message] The system which generated this result transmitted reference range : 0.0 - 10.0 /100 WBCs. The refer ence range was not u sed to interpret th is result as normal/abnormal . NRBC x10^3 (test code <0.01 See_Comment [Auto mated = 4051662461) message] The s ystem which generated this result transmitted reference range : 10*3/?L. The reference range was not used to interpret this result as normal/abnormal . GRAN MAT (NEUT) % 74.2 % (test code = 770-8) IMM GRAN % (test code 0.50 % = 9999868059) LYMPH % (test code = 14.8 % 736-9) MONO % (test code = 8.3 % 5905-5) EOS % (test code = 1.9 % 713-8) BASO % (test code = 0.3 % 706-2) GRAN MAT x10^3(ANC) 8.01 10*3/uL 1.99-6.95 H (test code = 6879576124) IMM GRAN x10^3 (test 0.05 10*3/uL 0.00-0.06 code = 5419007913) LYMPH x10^3 (test code 1.59 10*3/uL 1.09-3.23 = 731-0) MONO x10^3 (test code 0.89 10*3/uL 0.36-1.02 = 742-7) EOS x10^3 (test code = 0.20 10*3/uL 0.06-0.53 711-2) BASO x10^3 (test code 0.03 10*3/uL 0.01-0.09 = 704-7) Lab Interpretation Abnormal (test code = 49327-9) [facility] GLUCOSE (AUTOMATED)2021-12-22 17:25:00 Test Item Value Reference Range Interpretation Comments POCT GLU (test code = 5791876307) 249 mg/dL 70-110 H Lab Interpretation (test code = Abnormal 45648-5) [facility] GLUCOSE (AUTOMATED)2021-12-22 12:54:01 Test Item Value Reference Range Interpretation Comments POCT GLU (test code = 1257150233) 188 mg/dL 70-110 H Lab Interpretation (test code = Abnormal 22610-9) [facility] METABOLIC PANEL (NA, K, CL, CO2, GLUCOSE, BUN, CREATININE, CA)2021-12-22 11:48:23 Test Item Value Reference Range Interpretation Comments NA (test code = 137 mmol/L 135-145 3010567925) K (test code = 4.3 mmol/L 3.5-5.0 2501586917) CL (test code = 105 mmol/L 98-108 6989560456) CO2 TOTAL (test code = 23 mmol/L 23-31 5643150859) AGAP (test code = 2-16 3736773728) BUN (test code = 19 mg/dL 7-23 9461053055) GLUCOSE (test code = 243 mg/dL 70-110 H 7877952022) CREATININE (test code = 0.50 mg/dL 0.60-1.25 L 3465790225) CALCIUM (test code = 8.9 mg/dL 8.6-10.6 3520890236) eGFR (test code = mL/min/1.73m2 7380692183) ARPITA (test code = ARPITA) Association of [...] tests). Lab Interpretation Abnormal (test code = 10761-4) [facility]:23 Test Item Value Reference Range Interpretation Comments MAGNESIUM (test code = 0194798597) 2.1 mg/dL 1.7-2.4 Lab Interpretation (test code = Normal 56640-3) [facility] acute [facility] WITH [id number] 11:09:44 Test Item Value Reference Range Interpretation Comments WBC (test code = See_Comment [Automated message] 2690-2) The system [employer] generated this result transmitted ref erence range: 4.20 - 1 0.70 10*3/?L. The re ference range was not u sed to interpret this result as normal/abnor mal. RBC (test code = See_Comment [Automated message] 909-8) The system [employer] generated this result transmitted ref erence range: [...] RDW-SD (test code 43.6 fL 38.5-51.6 = 36773-4) RDW-CV (test code 13.7 % 12.1-15.4 = 788-0) PLT (test code = See_Comment [Automated message] 947-3) The system [employer] generated this result transmitted ref erence range: 150 - 32 8 10*3/?L. The re ference range was not u sed to interpret this result as normal/abnor mal. MPV (test code = 11.0 fL 9.8-13.0 84472-5) NRBC/100 WBC (test See_Comment [Automat ed message] code = 9922142562) The syste m which generated this result transmitted ref erence range: 0.0 - 10 .0 /100 WBCs. The refer ence range was not u sed to interpret this result as normal/abnor mal. NRBC x10^3 (test <0.01 See_Comment [Automated message] code = 6553136913) The syste m which generated this result transmitted ref erence range: 10*3/?L. The reference range was not used to interpr et this result as normal/abnormal . GRAN MAT (NEUT) % 57.9 % (test code = 770-8) IMM GRAN % (test 0.60 % code = 9490039837) LYMPH % (test code 30.7 % = 736-9) MONO % (test code 8.5 % = 5905-5) EOS % (test code = 2.0 % 713-8) BASO % (test code 0.3 % = 706-2) GRAN MAT 5.14 10*3/uL 1.99-6.95 x10^3(ANC) (test code = 1910254129) IMM GRAN x10^3 0.05 10*3/uL 0.00-0.06 (test code = 5345345275) LYMPH x10^3 (test 2.73 10*3/uL 1.09-3.23 code = 731-0) MONO x10^3 (test 0.76 10*3/uL 0.36-1.02 code = 742-7) EOS x10^3 (test 0.18 10*3/uL 0.06-0.53 code = 711-2) BASO x10^3 (test 0.03 10*3/uL 0.01-0.09 code = 704-7) [facility] GLUCOSE (AUTOMATED)2021-12-22 10:34:14 Test Item Value Reference Range Interpretation Comments POCT GLU (test code = 2403322858) 230 mg/dL 70-110 H Lab Interpretation (test code = Abnormal 71282-1) [facility] GLUCOSE (AUTOMATED)2021-12-22 05:56:50 Test Item Value Reference Range Interpretation Comments POCT GLU (test code = 1928177567) 314 mg/dL 70-110 H Lab Interpretation (test code = Abnormal 55418-0) [facility] GLUCOSE (AUTOMATED)2021-12-22 04:40:22 Test Item Value Reference Range Interpretation Comments POCT GLU (test code = 3918322131) 324 mg/dL 70-110 H Lab Interpretation (test code = Abnormal 10170-6) [facility] GLUCOSE (AUTOMATED)2021-12-22 02:37:33 Test Item Value Reference Range Interpretation Comments POCT GLU (test code = 7418790003) 296 mg/dL 70-110 H Lab Interpretation (test code = Abnormal 97561-6) [facility] GLUCOSE (AUTOMATED)2021-12-22 01:05:02 Test Item Value Reference Range Interpretation Comments POCT GLU (test code = 6674988312) 319 mg/dL 70-110 H Lab Interpretation (test code = Abnormal 82643-1) [facility] GLUCOSE (AUTOMATED)2021-12-21 21:59:09 Test Item Value Reference Range Interpretation Comments POCT GLU (test code = 4568598389) 257 mg/dL 70-110 H Lab Interpretation (test code = Abnormal 36889-5) [facility] GLUCOSE (AUTOMATED)2021-12-21 17:21:41 Test Item Value Reference Range Interpretation Comments POCT GLU (test code = 4604425671) 214 mg/dL 70-110 H Lab Interpretation (test code = Abnormal 39471-7) [facility] GLUCOSE (AUTOMATED)2021-12-21 13:04:04 Test Item Value Reference Range Interpretation Comments POCT GLU (test code = 8537345493) 234 mg/dL 70-110 H Lab Interpretation (test code = Abnormal 63270-4) [facility] METABOLIC PANEL (NA, K, CL, CO2, GLUCOSE, BUN, CREATININE, CA)2021-12-21 12:23:33 Test Item Value Reference Range Interpretation Comments NA (test code = 136 mmol/L 135-145 1352198699) K (test code = 4.1 mmol/L 3.5-5.0 4651587012) CL (test code = 109 mmol/L 98-108 H 0675650356) CO2 TOTAL (test code = 20 mmol/L 23-31 L 7949884848) AGAP (test code = 2-16 5617524014) BUN (test code = 16 mg/dL 7-23 4226262013) GLUCOSE (test code = 281 mg/dL 70-110 H 9450144689) CREATININE (test code = 0.50 mg/dL 0.60-1.25 L 8454137353) CALCIUM (test code = 8.3 mg/dL 8.6-10.6 L 7961848687) eGFR (test code = mL/min/1.73m2 3728223353) ARPITA (test code = ARPITA) Association of [...] tests). Lab Interpretation Abnormal (test code = 00765-6) [facility] Test Item Value Reference Range Interpretation Comments MAGNESIUM (test code = 2371751557) 1.6 mg/dL 1.7-2.4 L Lab Interpretation (test code = Abnormal 73190-3) [facility] 12:23:13 Test Item Value Reference Range Interpretation Comments PHOSPHORUS (test code = 6546076505) 3.2 mg/dL 2.5-5.0 Lab Interpretation (test code = Normal 45418-6) [facility] 10:04:37 Test Item Value Reference Range Interpretation Comments HGB A1C (test code = 9.6 % 4.0-5.7 H 4548-4) ARPITA (test code = ARPITA) Reference RangesNormal: <5.7%Prediabetes: 5.7 - 6.4%Diabetes: > 6.5% Lab Interpretation (test Abnormal code = 89070-8) [id number] 09:29:41 Test Item Value Reference Range Interpretation Comments WBC (test code = See_Comment [Automated message] 6690-2) The system [employer] generated this result transmitted ref erence range: 4.20 - 1 0.70 10*3/?L. The re ference range was not u sed to interpret this result as normal/abnor mal. RBC (test code = See_Comment [Automated message] 789-8) The system [employer] generated this result transmitted ref erence range: [...] RDW-SD (test code 42.5 fL 38.5-51.6 = 73636-3) RDW-CV (test code 13.5 % 12.1-15.4 = 788-0) PLT (test code = See_Comment [Automated message] 777-3) The system whic h generated this result transmitted ref erence range: 150 - 32 8 10*3/?L. The re ference range was not u sed to interpret this result as normal/abnor mal. MPV (test code = 10.8 fL 9.8-13.0 99588-1) NRBC/100 WBC (test See_Comment [Automat ed message] code = 5267937703) The syste m which generated this result transmitted ref erence range: 0.0 - 10 .0 /100 WBCs. The refer ence range was not u sed to interpret this result as normal/abnor mal. NRBC x10^3 (test <0.01 See_Comment [Automated message] code = 7188547836) The syste m which generated this result transmitted ref erence range: 10*3/?L. The reference range was not used to interpr et this result as normal/abnormal . GRAN MAT (NEUT) % 58.6 % (test code = 770-8) IMM GRAN % (test 0.50 % code = 0445404342) LYMPH % (test code 31.3 % = 736-9) MONO % (test code 6.9 % = 5905-5) EOS % (test code = 2.4 % 713-8) BASO % (test code 0.3 % = 706-2) GRAN MAT 5.39 10*3/uL 1.99-6.95 x10^3(ANC) (test code = 9832637427) IMM GRAN x10^3 0.05 10*3/uL 0.00-0.06 (test code = 1800519636) LYMPH x10^3 (test 2.89 10*3/uL 1.09-3.23 code = 731-0) MONO x10^3 (test 0.64 10*3/uL 0.36-1.02 code = 742-7) EOS x10^3 (test 0.22 10*3/uL 0.06-0.53 code = 711-2) BASO x10^3 (test 0.03 10*3/uL 0.01-0.09 code = 704-7) [facility] GLUCOSE (AUTOMATED)2021-12-21 09:06:33 Test Item Value Reference Range Interpretation Comments POCT GLU (test code = 1769724628) 206 mg/dL 70-110 H Lab Interpretation (test code = Abnormal 24572-1) [facility] GLUCOSE (AUTOMATED)2021-12-21 04:38:41 Test Item Value Reference Range Interpretation Comments POCT GLU (test code = 4745260403) 272 mg/dL 70-110 H Lab Interpretation (test code = Abnormal 43305-4) [facility] GLUCOSE (AUTOMATED)2021-12-21 01:14:47 Test Item Value Reference Range Interpretation Comments POCT GLU (test code = 5812697535) 256 mg/dL 70-110 H Lab Interpretation (test code = Abnormal 44322-0) [facility] GLUCOSE (AUTOMATED)2021-12-20 21:11:19 Test Item Value Reference Range Interpretation Comments POCT GLU (test code = 9563425024) 254 mg/dL 70-110 H Lab Interpretation (test code = Abnormal 14227-8) [facility] GLUCOSE (AUTOMATED)2021-12-20 17:10:33 Test Item Value Reference Range Interpretation Comments POCT GLU (test code = 9743304463) 350 mg/dL 70-110 H Lab Interpretation (test code = Abnormal 86621-9) [facility] GLUCOSE (AUTOMATED)2021-12-20 12:50:18 Test Item Value Reference Range Interpretation Comments POCT GLU (test code = 9054198524) 269 mg/dL 70-110 H Lab Interpretation (test code = Abnormal 27208-9) [facility] (NA, K, CL, CO2, GLUCOSE, BUN, CREATININE, CA)2021-12-20 10:18:27 Test Item Value Reference Range Interpretation Comments NA (test code = 137 mmol/L 135-145 7206172733) K (test code = 4.0 mmol/L 3.5-5.0 0762885068) CL (test code = 108 mmol/L 98-108 0649923065) CO2 TOTAL (test code = 23 mmol/L 23-31 9558176259) AGAP (test code = 2-16 6795269587) BUN (test code = 16 mg/dL 7-23 3588070474) GLUCOSE (test code = 386 mg/dL 70-110 H 2152494718) CREATININE (test code = 0.70 mg/dL 0.60-1.25 8075573983) CALCIUM (test code = 8.6 mg/dL 8.6-10.6 8794569516) eGFR (test code = mL/min/1.73m2 4555035887) ARPITA (test code = ARPITA) Association of [...] tests). Lab Interpretation Abnormal (test code = 64981-8) [facility] with [id number] 10:03:31 Test Item Value Reference Range Interpretation Comments WBC (test code = See_Comment [Automated message] 6690-2) The system [employer] generated this result transmitted ref erence range: 4.20 - 1 0.70 10*3/?L. The re ference range was not u sed to interpret this result as normal/abnor mal. RBC (test code = See_Comment [Automated message] 789-8) The system [employer] generated this result transmitted ref erence range: [...] RDW-SD (test code 42.5 fL 38.5-51.6 = 30758-3) RDW-CV (test code 13.5 % 12.1-15.4 = 788-0) PLT (test code = See_Comment [Automated message] 777-3) The system [employer] generated this result transmitted ref erence range: 150 - 32 8 10*3/?L. The re ference range was not u sed to interpret this result as normal/abnor mal. MPV (test code = 11.2 fL 9.8-13.0 22458-9) NRBC/100 WBC (test See_Comment [Automat ed message] code = 3196975374) The syste [employer] which generated this result transmitted ref erence range: 0.0 - 10 .0 /100 WBCs. The refer ence range was not u sed to interpret this result as normal/abnor mal. NRBC x10^3 (test <0.01 See_Comment [Automated message] code = 8908675534) The syste m which generated this result transmitted ref erence range: 10*3/?L. The reference range was not used to interpr et this result as normal/abnormal . GRAN MAT (NEUT) % 63.5 % (test code = 363-8) IMM GRAN % (test 0.30 % code = 9355369014) LYMPH % (test code 24.8 % = 736-9) MONO % (test code 8.7 % = 5905-5) EOS % (test code = 2.5 % 713-8) BASO % (test code 0.2 % = 706-2) GRAN MAT 6.05 10*3/uL 1.99-6.95 x10^3(ANC) (test code = 9045758251) IMM GRAN x10^3 0.03 10*3/uL 0.00-0.06 (test code = 3846771409) LYMPH x10^3 (test 2.37 10*3/uL 1.09-3.23 code = 731-0) MONO x10^3 (test 0.83 10*3/uL 0.36-1.02 code = 742-7) EOS x10^3 (test 0.24 10*3/uL 0.06-0.53 code = 711-2) BASO x10^3 (test <0.03 0.01-0.09 code = 704-7) [facility] GLUCOSE (AUTOMATED)2021-12-20 09:00:15 Test Item Value Reference Range Interpretation Comments POCT GLU (test code = 4169624977) 402 mg/dL 70-110 H Lab Interpretation (test code = Abnormal 40247-2) [facility] GLUCOSE (AUTOMATED)2021-12-20 04:54:36 Test Item Value Reference Range Interpretation Comments POCT GLU (test code = 6386652529) 368 mg/dL 70-110 H Lab Interpretation (test code = Abnormal 83793-9) [facility] GLUCOSE (AUTOMATED)2021-12-20 03:13:40 Test Item Value Reference Range Interpretation Comments POCT GLU (test code = 2972337338) 438 mg/dL 70-110 H Lab Interpretation (test code = Abnormal 14818-3) [facility] METABOLIC PANEL (47120)2021-12-20 01:05:39 Test Item Value Reference Range Interpretation Comments NA (test code = 133 mmol/L 135-145 L 2958214091) K (test code = 4.7 mmol/L 3.5-5.0 3508132882) CL (test code = 99 mmol/L 98-108 6088721786) CO2 TOTAL (test code = 21 mmol/L 23-31 L 2339026508) AGAP (test code = 2-16 2403518570) BUN (test code = 18 mg/dL 7-23 7842997474) GLUCOSE (test code = 660 mg/dL 70-110 HH 5942198572) CREATININE (test code = 0.64 mg/dL 0.60-1.25 3494493072) TOTAL BILI (test code = 1.0 mg/dL 0.1-1.3 7445583834) CALCIUM (test code = 9.7 mg/dL 8.6-10.6 0360160691) T PROTEIN (test code = 7.9 g/dL 6.3-8.2 8855897148) ALBUMIN (test code = 4.4 g/dL 3.5-5.0 4491932391) ALK PHOS (test code = 143 U/L 34-122 H 0806326305) ALTv (test code = 47 U/L 5-50 2-6) AST(SGOT) (test code = 30 U/L 13-40 9102808679) eGFR (test code = mL/min/1.73m2 3980138211) ARPITA (test code = ARPITA) Association of [...] tests). Lab Interpretation Abnormal (test code = 16393-8) [facility]15 Test Item Value Reference Range Interpretation Comments LIPASE (test code = 0397380699) 255 U/L 0-220 H Lab Interpretation (test code = Abnormal 87256-9) [facility] [id number] 00:38:14 Test Item Value Reference Range Interpretation Comments WBC (test code = See_Comment H [Automated 5290-2) message] The sy [...] RDW-SD (test code = 43.8 fL 38.5-51.6 98987-5) RDW-CV (test code = 13.6 % 12.1-15.4 788-0) PLT (test code = See_Comment [Automated 777-3) message] The sy stem which generated this result transmitted reference range : 150 - 328 10*3/ ?L. The reference r boubacar was not used to interpret this result as normal/abnormal . MPV (test code = 11.4 fL 9.8-13.0 83332-0) NRBC/100 WBC (test See_Comment [Automat ed code = 8903288308) message] The system which generated this result transmitted reference range : 0.0 - 10.0 /100 WBCs. The refer ence range was not u sed to interpret th is result as normal/abnormal . NRBC x10^3 (test code <0.01 See_Comment [Auto mated = 6700997093) message] The s ystem which generated this result transmitted reference range : 10*3/?L. The reference range was not used to interpret this result as normal/abnormal . GRAN MAT (NEUT) % 76.0 % (test code = 770-8) IMM GRAN % (test code 0.50 % = 8031560919) LYMPH % (test code = 15.2 % 736-9) MONO % (test code = 6.5 % 5905-5) EOS % (test code = 1.6 % 713-8) BASO % (test code = 0.2 % 706-2) GRAN MAT x10^3(ANC) 8.55 10*3/uL 1.99-6.95 H (test code = 9700415655) IMM GRAN x10^3 (test 0.06 10*3/uL 0.00-0.06 code = 9106454622) LYMPH x10^3 (test code 1.71 10*3/uL 1.09-3.23 = 731-0) MONO x10^3 (test code 0.73 10*3/uL 0.36-1.02 = 742-7) EOS x10^3 (test code = 0.18 10*3/uL 0.06-0.53 711-2) BASO x10^3 (test code <0.03 0.01-0.09 = 704-7) Lab Interpretation Abnormal (test code = 54922-2) [facility] Test Item Value Reference Range Interpretation Comments MAGNESIUM (test code = 8894748357) 1.7 mg/dL 1.7-2.4 Lab Interpretation (test code = Normal 07112-2) [facility] METABOLIC PANEL (NA, K, CL, CO2, GLUCOSE, BUN, CREATININE, CA)2021-12-18 18:32:38 Test Item Value Reference Range Interpretation Comments NA (test code = 137 mmol/L 135-145 5558538439) K (test code = 4.3 mmol/L 3.5-5.0 2614395399) CL (test code = 105 mmol/L 98-108 5088610261) CO2 TOTAL (test code = 23 mmol/L 23-31 4144139297) AGAP (test code = 2-16 8024826372) BUN (test code = 17 mg/dL 7-23 7352518561) GLUCOSE (test code = 317 mg/dL 70-110 H 3370080152) CREATININE (test code = 0.57 mg/dL 0.60-1.25 L 9429371007) CALCIUM (test code = 9.3 mg/dL 8.6-10.6 0236818001) eGFR (test code = mL/min/1.73m2 8167362674) ARPITA (test code = ARPITA) Association of [...] tests). Lab Interpretation Abnormal (test code = 56535-9) [facility] WITH [id number] 18:10:18 Test Item Value Reference Range Interpretation Comments WBC (test code = See_Comment [Automated message] 6690-2) The system [employer] generated this result transmitted ref erence range: 4.20 - 1 0.70 10*3/?L. The re ference range was not u sed to interpret this result as normal/abnor mal. RBC (test code = See_Comment [Automated message] 789-8) The system [employer] generated this result transmitted ref erence range: [...] RDW-SD (test code 44.4 fL 38.5-51.6 = 96596-8) RDW-CV (test code 13.8 % 12.1-15.4 = 788-0) PLT (test code = See_Comment [Automated message] 777-3) The system [employer] generated this result transmitted ref erence range: 150 - 32 8 10*3/?L. The re ference range was not u sed to interpret this result as normal/abnor mal. MPV (test code = 10.9 fL 9.8-13.0 50062-1) NRBC/100 WBC (test See_Comment [Automat ed message] code = 2282711992) The syste m which generated this result transmitted ref erence range: 0.0 - 10 .0 /100 WBCs. The refer ence range was not u sed to interpret this result as normal/abnor mal. NRBC x10^3 (test <0.01 See_Comment [Automated message] code = 5140902729) The syste m which generated this result transmitted ref erence range: 10*3/?L. The reference range was not used to interpr et this result as normal/abnormal . GRAN MAT (NEUT) % 53.4 % (test code = 770-8) IMM GRAN % (test 0.30 % code = 1209890144) LYMPH % (test code 35.3 % = 736-9) MONO % (test code 7.4 % = 5905-5) EOS % (test code = 3.3 % 713-8) BASO % (test code 0.3 % = 706-2) GRAN MAT 3.59 10*3/uL 1.99-6.95 x10^3(ANC) (test code = 4356148903) IMM GRAN x10^3 <0.03 0.00-0.06 (test code = 9274537048) LYMPH x10^3 (test 2.37 10*3/uL 1.09-3.23 code = 731-0) MONO x10^3 (test 0.50 10*3/uL 0.36-1.02 code = 742-7) EOS x10^3 (test 0.22 10*3/uL 0.06-0.53 code = 711-2) BASO x10^3 (test <0.03 0.01-0.09 code = 704-7) [facility] GLUCOSE (AUTOMATED)2021-12-18 16:50:23 Test Item Value Reference Range Interpretation Comments POCT GLU (test code = 5341937255) 304 mg/dL 70-110 H Lab Interpretation (test code = Abnormal 02756-2) [facility] GLUCOSE (AUTOMATED)2021-12-18 12:58:13 Test Item Value Reference Range Interpretation Comments POCT GLU (test code = 6499115509) 364 mg/dL 70-110 H Lab Interpretation (test code = Abnormal 07905-6) [facility] GLUCOSE (AUTOMATED)2021-12-18 09:42:05 Test Item Value Reference Range Interpretation Comments POCT GLU (test code = 7777883730) 369 mg/dL 70-110 H Lab Interpretation (test code = Abnormal 53210-1) [facility] GLUCOSE (AUTOMATED)2021-12-18 05:09:33 Test Item Value Reference Range Interpretation Comments POCT GLU (test code = 7601363878) 332 mg/dL 70-110 H Lab Interpretation (test code = Abnormal 94805-2) [facility] GLUCOSE (AUTOMATED)2021-12-18 01:27:31 Test Item Value Reference Range Interpretation Comments POCT GLU (test code = 8041161558) 349 mg/dL 70-110 H Lab Interpretation (test code = Abnormal 63979-9) [facility] GLUCOSE (AUTOMATED)2021-12-17 21:42:26 Test Item Value Reference Range Interpretation Comments POCT GLU (test code = 8442083850) 372 mg/dL 70-110 H Lab Interpretation (test code = Abnormal 36618-4) [facility] GLUCOSE (AUTOMATED)2021-12-17 17:17:16 Test Item Value Reference Range Interpretation Comments POCT GLU (test code = 0340459094) 329 mg/dL 70-110 H Lab Interpretation (test code = Abnormal 40304-3) [facility] GLUCOSE (AUTOMATED)2021-12-17 14:09:34 Test Item Value Reference Range Interpretation Comments POCT GLU (test code = 4378924375) 350 mg/dL 70-110 H Lab Interpretation (test code = Abnormal 02179-2) [facility] GLUCOSE (AUTOMATED)2021-12-17 09:59:20 Test Item Value Reference Range Interpretation Comments POCT GLU (test code = 6972498728) 342 mg/dL 70-110 H Lab Interpretation (test code = Abnormal 85147-3) [facility] GLUCOSE (AUTOMATED)2021-12-17 01:46:05 Test Item Value Reference Range Interpretation Comments POCT GLU (test code = 7081745247) 318 mg/dL 70-110 H Lab Interpretation (test code = Abnormal 74419-4) [facility] GLUCOSE (AUTOMATED)2021-12-16 21:25:33 Test Item Value Reference Range Interpretation Comments POCT GLU (test code = 4842599802) 212 mg/dL 70-110 H Lab Interpretation (test code = Abnormal 37943-1) [facility] GLUCOSE (AUTOMATED)2021-12-16 16:27:52 Test Item Value Reference Range Interpretation Comments POCT GLU (test code = 4364804653) 226 mg/dL 70-110 H Lab Interpretation (test code = Abnormal 13454-4) [facility] GLUCOSE (AUTOMATED)2021-12-16 15:37:46 Test Item Value Reference Range Interpretation Comments POCT GLU (test code = 2794573920) 204 mg/dL 70-110 H Lab Interpretation (test code = Abnormal 31145-7) [facility] GLUCOSE (AUTOMATED)2021-12-16 14:39:25 Test Item Value Reference Range Interpretation Comments POCT GLU (test code = 6249162804) 185 mg/dL 70-110 H Lab Interpretation (test code = Abnormal 56775-8) [facility] Metabolic Panel (Na, K, Cl, CO2, Glucose, BUN, Creatinine, Ca)2021-12-16 14:07:03 Test Item Value Reference Range Interpretation Comments NA (test code = 137 mmol/L 135-145 3865704584) K (test code = 4.6 mmol/L 3.5-5.0 2635327838) CL (test code = 111 mmol/L 98-108 H 8050183863) CO2 TOTAL (test code = 22 mmol/L 23-31 L 5172328640) AGAP (test code = 2-16 2878603129) BUN (test code = 12 mg/dL 7-23 2736607920) GLUCOSE (test code = 181 mg/dL 70-110 H 2350663404) CREATININE (test code = 0.70 mg/dL 0.60-1.25 1533954030) CALCIUM (test code = 8.3 mg/dL 8.6-10.6 L 3470273413) eGFR (test code = mL/min/1.73m2 4479754378) ARPITA (test code = ARPITA) Association of [...] tests). Lab Interpretation Abnormal (test code = 83553-9) [facility] GLUCOSE (AUTOMATED)2021-12-16 13:45:48 Test Item Value Reference Range Interpretation Comments POCT GLU (test code = 9057921073) 170 mg/dL 70-110 H Lab Interpretation (test code = Abnormal 99422-6) [facility] GLUCOSE (AUTOMATED)2021-12-16 12:28:12 Test Item Value Reference Range Interpretation Comments POCT GLU (test code = 3590087029) 109 mg/dL 70-110 Lab Interpretation (test code = Normal 88868-9) [facility] GLUCOSE (AUTOMATED)2021-12-16 11:25:37 Test Item Value Reference Range Interpretation Comments POCT GLU (test code = 9792517822) 134 mg/dL 70-110 H Lab Interpretation (test code = Abnormal 47129-5) [facility] (Na, K, Cl, CO2, Glucose, BUN, Creatinine, Ca)2021-12-16 10:50:17 Test Item Value Reference Range Interpretation Comments NA (test code = 138 mmol/L 135-145 3015347275) K (test code = 5.1 mmol/L 3.5-5.0 H Slight 2915837291) hemolysis CL (test code = 110 mmol/L 98-108 H 1848555860) CO2 TOTAL (test code 23 mmol/L 23-31 = 8364255434) AGAP (test code = 2-16 5687299459) BUN (test code = 13 mg/dL 7-23 Slight 4028772931) hemolysis GLUCOSE (test code = 131 mg/dL 70-110 H 6818220219) CREATININE (test code 0.73 mg/dL 0.60-1.25 = 3502166974) CALCIUM (test code = 8.9 mg/dL 8.6-10.6 5914839727) eGFR (test code = mL/min/1.73m2 4243742551) ARPITA (test code = ARPITA) Association of [...] tests). Lab Interpretation Abnormal (test code = 66831-9) [facility] GLUCOSE (AUTOMATED)2021-12-16 10:35:11 Test Item Value Reference Range Interpretation Comments POCT GLU (test code = 8994898404) 125 mg/dL 70-110 H Lab Interpretation (test code = Abnormal 94442-8) [facility] GLUCOSE (AUTOMATED)2021-12-16 09:31:05 Test Item Value Reference Range Interpretation Comments POCT GLU (test code = 4245177868) 137 mg/dL 70-110 H Lab Interpretation (test code = Abnormal 32022-0) [facility] GLUCOSE (AUTOMATED)2021-12-16 08:28:48 Test Item Value Reference Range Interpretation Comments POCT GLU (test code = 8260603161) 168 mg/dL 70-110 H Lab Interpretation (test code = Abnormal 54207-6) [facility] GLUCOSE (AUTOMATED)2021-12-16 07:26:17 Test Item Value Reference Range Interpretation Comments POCT GLU (test code = 3873225508) 165 mg/dL 70-110 H Lab Interpretation (test code = Abnormal 74291-1) [facility] (Na, K, Cl, CO2, Glucose, BUN, Creatinine, Ca)2021-12-16 07:18:59 Test Item Value Reference Range Interpretation Comments NA (test code = 136 mmol/L 135-145 2935861351) K (test code = 5.1 mmol/L 3.5-5.0 H 1116184150) CL (test code = 108 mmol/L 98-108 6626111865) CO2 TOTAL (test code = 24 mmol/L 23-31 7264924885) AGAP (test code = 2-16 9448369235) BUN (test code = 14 mg/dL 7-23 2281057342) GLUCOSE (test code = 202 mg/dL 70-110 H 4610915225) CREATININE (test code = 0.79 mg/dL 0.60-1.25 5046799993) CALCIUM (test code = 8.9 mg/dL 8.6-10.6 1624340007) eGFR (test code = mL/min/1.73m2 9718448592) ARPITA (test code = ARPITA) Association of [...] tests). Lab Interpretation Abnormal (test code = 21733-1) [id number] 06:57:08 Test Item Value Reference Range Interpretation Comments BOH (test code = <0.1 mmol/L 0724520910) ARPITA (test code = Normal Ranges: ? ? ARPITA) Nonfasting ? Less than 0.1 mmol/L ? ? Overnight Fast ? ? ? Less than 0.4 mmol/L ? ? Fasting (1-2 weeks) ?6-8 mmol/L Test developed and characteristics determined by [facility] Laboratory Services. [facility] GLUCOSE (AUTOMATED)2021-12-16 06:24:07 Test Item Value Reference Range Interpretation Comments POCT GLU (test code = 1452815899) 212 mg/dL 70-110 H Lab Interpretation (test code = Abnormal 66540-7) [facility] GLUCOSE (AUTOMATED)2021-12-16 05:28:19 Test Item Value Reference Range Interpretation Comments POCT GLU (test code = 7491121455) 239 mg/dL 70-110 H Lab Interpretation (test code = Abnormal 71769-7) [facility] 04:29:31 Test Item Value Reference Range Interpretation Comments POCT GLU (test code = 0121789511) 251 mg/dL 70-110 H Lab Interpretation (test code = Abnormal 94870-6) [facility] Metabolic Panel (Na, K, Cl, CO2, Glucose, BUN, Creatinine, Ca)2021-12-16 03:49:55 Test Item Value Reference Range Interpretation Comments NA (test code = 141 mmol/L 135-145 9300418669) K (test code = 4.2 mmol/L 3.5-5.0 6679463490) CL (test code = 108 mmol/L 98-108 0658939027) CO2 TOTAL (test code = 26 mmol/L 23-31 8317468896) AGAP (test code = 2-16 5026650830) BUN (test code = 14 mg/dL 7-23 3285634703) GLUCOSE (test code = 164 mg/dL 70-110 H 7257079617) CREATININE (test code = 0.84 mg/dL 0.60-1.25 3943045486) CALCIUM (test code = 9.3 mg/dL 8.6-10.6 5179184795) eGFR (test code = mL/min/1.73m2 6987384467) ARPITA (test code = ARPITA) Association of [...] tests). Lab Interpretation Abnormal (test code = 50551-9) [facility] GLUCOSE (AUTOMATED)2021-12-16 03:20:15 Test Item Value Reference Range Interpretation Comments POCT GLU (test code = 2593259697) 174 mg/dL 70-110 H Lab Interpretation (test code = Abnormal 09077-1) [facility] GLUCOSE (AUTOMATED)2021-12-16 02:25:54 Test Item Value Reference Range Interpretation Comments POCT GLU (test code = 2929074731) 158 mg/dL 70-110 H Lab Interpretation (test code = Abnormal 83126-3) [facility] GLUCOSE (AUTOMATED)2021-12-16 01:37:09 Test Item Value Reference Range Interpretation Comments POCT GLU (test code = 0788702149) 219 mg/dL 70-110 H Lab Interpretation (test code = Abnormal 86499-5) [facility] GLUCOSE (AUTOMATED)2021-12-16 00:19:48 Test Item Value Reference Range Interpretation Comments POCT GLU (test code = 5606106590) 345 mg/dL 70-110 H Lab Interpretation (test code = Abnormal 49418-9) [facility] GLUCOSE (AUTOMATED)2021-12-15 22:59:57 Test Item Value Reference Range Interpretation Comments POCT GLU (test code = 2490108171) 318 mg/dL 70-110 H Lab Interpretation (test code = Abnormal 13547-4) [facility] Metabolic Panel (Na, K, Cl, CO2, Glucose, BUN, Creatinine, Ca)2021-12-15 22:41:00 Test Item Value Reference Range Interpretation Comments NA (test code = 140 mmol/L 135-145 7744694077) K (test code = 3.1 mmol/L 3.5-5.0 L 9504896797) CL (test code = 116 mmol/L 98-108 H 0585305222) CO2 TOTAL (test code = 21 mmol/L 23-31 L 2724426489) AGAP (test code = 2-16 2025127911) BUN (test code = 12 mg/dL 7-23 9838194486) GLUCOSE (test code = 281 mg/dL 70-110 H 2719029303) CREATININE (test code = 0.62 mg/dL 0.60-1.25 3835958824) CALCIUM (test code = 7.2 mg/dL 8.6-10.6 L 7167646548) eGFR (test code = mL/min/1.73m2 2490533511) ARPITA (test code = ARPITA) Association of [...] tests). Lab Interpretation Abnormal (test code = 56987-5) [facility] GLUCOSE (AUTOMATED)2021-12-15 21:53:29 Test Item Value Reference Range Interpretation Comments POCT GLU (test code = 3571075344) 368 mg/dL 70-110 H Lab Interpretation (test code = Abnormal 45882-5) [facility] GLUCOSE (AUTOMATED)2021-12-15 20:41:51 Test Item Value Reference Range Interpretation Comments POCT GLU (test code = [id number]) 458 mg/dL 70-110 HH Lab Interpretation (test code = Abnormal 98398-9) [facility] GLUCOSE (AUTOMATED)2021-12-15 19:00:13 Test Item Value Reference Range Interpretation Comments POCT GLU (test code = 8449446687) 369 mg/dL 70-110 H Lab Interpretation (test code = Abnormal 24910-1) [facility] Metabolic Panel (Na, K, Cl, CO2, Glucose, BUN, Creatinine, Ca)2021-12-15 18:32:29 Test Item Value Reference Range Interpretation Comments NA (test code = 145 mmol/L 135-145 8585322094) K (test code = 4.8 mmol/L 3.5-5.0 Slight 0749809336) hemolysis CL (test code = 112 mmol/L 98-108 H 9123969727) CO2 TOTAL (test code 26 mmol/L 23-31 = 8926336040) AGAP (test code = 2-16 8737923337) BUN (test code = 16 mg/dL 7-23 Slight 7516727108) hemolysis GLUCOSE (test code = 282 mg/dL 70-110 H 6543447847) CREATININE (test code 0.83 mg/dL 0.60-1.25 = 1754008466) CALCIUM (test code = 10.0 mg/dL 8.6-10.6 0287868617) eGFR (test code = mL/min/1.73m2 1767285151) ARPITA (test code = ARPITA) Association of [...] tests). Lab Interpretation Abnormal (test code = 90766-6) [facility] GLUCOSE (AUTOMATED)2021-12-15 17:45:09 Test Item Value Reference Range Interpretation Comments POCT GLU (test code = 1632205679) 284 mg/dL 70-110 H Lab Interpretation (test code = Abnormal 61186-5) [facility] 16:41:13 Test Item Value Reference Range Interpretation Comments BOH (test code = 0.9 mmol/L 7671002051) ARPITA (test code = Normal Ranges: ? ? ARPITA) Nonfasting ? Less than 0.1 mmol/L ? ? Overnight Fast ? ? ? Less than 0.4 mmol/L ? ? Fasting (1-2 weeks) ?6-8 mmol/L Test developed and characteristics determined by [facility] Laboratory Services. [facility] GLUCOSE (AUTOMATED)2021-12-15 16:33:41 Test Item Value Reference Range Interpretation Comments POCT GLU (test code = 4737670348) 266 mg/dL 70-110 H Lab Interpretation (test code = Abnormal 11868-5) [facility] GLUCOSE (AUTOMATED)2021-12-15 15:30:41 Test Item Value Reference Range Interpretation Comments POCT GLU (test code = 4217651257) 294 mg/dL 70-110 H Lab Interpretation (test code = Abnormal 48279-2) [facility] GLUCOSE (AUTOMATED)2021-12-15 14:23:40 Test Item Value Reference Range Interpretation Comments POCT GLU (test code = 6451421676) 511 mg/dL 70-110 HH Lab Interpretation (test code = Abnormal 42534-0) General acute hospital WITHOUT [id number] 13:55:53 Test Item Value Reference Range Interpretation Comments WBC (test code = 6690-2) See_Comment H [A utomated message] The system [employer] generated this result transmit lester reference range : 4.20 - 10.70 10*3/?L. The reference range was not used to interpret this result as normal/abnormal . RBC (test code = 789-8) See_Comment H [Au tomated message] The system [employer] generated this result transmit lester reference range [...] See_Comment H [Au tomated message] The system [employer] generated this result transmit lester reference range : 150 - 328 10*3/?L. The reference range was not used to interpret this result as normal/abnormal . MPV (test code = 11.0 fL 9.8-13.0 03418-7) RDW-CV (test code = 14.2 % 12.1-15.4 788-0) RDW-SD (test code = 44.8 fL 38.5-51.6 86437-0) NRBC x10^3 (test code = <0.01 See_Comment [Au tomated message] 8139681679) The system [employer] generated this result transmit lester reference range : 10*3/?L. The reference range was not used to interpret this result as normal/abnormal . NRBC/100 WBC (test code See_Comment [Au tomated message] = 7194696045) The system [employer] generated this result transmit lester reference range : 0.0 - 10.0 /100 WBC s. The reference r boubacar was not used to interpret this result as normal/abnormal . IPF % (test code = 8664603922) Lab Interpretation (test Abnormal code = 31716-4) [facility] GLUCOSE (AUTOMATED)2021-12-15 13:34:21 Test Item Value Reference Range Interpretation Comments POCT GLU (test code = 6532413836) 538 mg/dL 70-110 HH Lab Interpretation (test code = Abnormal 67580-0) [facility] GLUCOSE (AUTOMATED)2021-12-15 13:30:43 Test Item Value Reference Range Interpretation Comments POCT GLU (test code = 2060214790) >600 70-110 HH Lab Interpretation (test code = Abnormal 60314-4) [facility] GLUCOSE (AUTOMATED)2021-12-15 13:30:43 Test Item Value Reference Range Interpretation Comments POCT GLU (test code = 2381390829) >600 70-110 HH Lab Interpretation (test code = Abnormal 63752-8) [facility] GLUCOSE (AUTOMATED)2021-12-15 13:30:43 Test Item Value Reference Range Interpretation Comments POCT GLU (test code = >600 70-110 HH Notifi ed Provider [id number]) Lab Interpretation (test Abnormal code = 73791-2) [facility] GLUCOSE (AUTOMATED)2021-12-15 13:30:43 Test Item Value Reference Range Interpretation Comments POCT GLU (test code = 8526751690) >600 70-110 HH Lab Interpretation (test code = Abnormal 92452-1) [facility] GLUCOSE (AUTOMATED)2021-12-15 13:30:38 Test Item Value Reference Range Interpretation Comments POCT GLU (test code = 9434555254) >600 70-110 HH Lab Interpretation (test code = Abnormal 80703-6) [facility]-15 13:30:38 Test Item Value Reference Range Interpretation Comments POCT GLU (test code = 3937193881) >600 70-110 HH Lab Interpretation (test code = Abnormal 11548-5) [facility] Tyler[facility]smolality [id number] 12:37:44 Test Item Value Reference Range Interpretation Comments OSMOLALITY (test code = See_Comment HH [Au tomated message] 2692-2) The system [employer] generated this result transmitted ref erence range: 278 - 30 5 mOsm/kg. The reference range was not used to int erpret this result as normal/abnormal . Lab Interpretation (test Abnormal code = 67441-9) [facility] Metabolic Panel (Na, K, Cl, CO2, Glucose, BUN, Creatinine, Ca)2021-12-15 12:23:35 Test Item Value Reference Range Interpretation Comments NA (test code = 145 mmol/L 135-145 4777367317) K (test code = 4.4 mmol/L 3.5-5.0 8784534954) CL (test code = 109 mmol/L 98-108 H 3865358340) CO2 TOTAL (test code = 21 mmol/L 23-31 L 4327145789) AGAP (test code = 2-16 7220098165) BUN (test code = 15 mg/dL 7-23 4243036116) GLUCOSE (test code = 753 mg/dL 70-110 HH 7650172214) CREATININE (test code = 0.79 mg/dL 0.60-1.25 6094947017) CALCIUM (test code = 10.9 mg/dL 8.6-10.6 H 4805204414) eGFR (test code = mL/min/1.73m2 8165279784) ARPITA (test code = ARPITA) Association of [...] tests). Lab Interpretation Abnormal (test code = 72849-6) [facility] 12:14:56 Test Item Value Reference Range Interpretation Comments POCT GLU (test code = 1604462777) 564 mg/dL 70-110 HH Lab Interpretation (test code = Abnormal 99580-1) [facility] TylerMagnesium [id number] 12:05:40 Test Item Value Reference Range Interpretation Comments MAGNESIUM (test code = 6776133782) 2.5 mg/dL 1.7-2.4 H Lab Interpretation (test code = Abnormal 11265-2) [facility]2022-[facility] 12:05:20 Test Item Value Reference Range Interpretation Comments MAGNESIUM (test code = 6838707345) 2.5 mg/dL 1.7-2.4 H Lab Interpretation (test code = Abnormal 94737-4) [facility] TylerPhosphorus [id number] 12:05:20 Test Item Value Reference Range Interpretation Comments PHOSPHORUS (test code = 8753486498) 6.2 mg/dL 2.5-5.0 H Lab Interpretation (test code = Abnormal 15682-4) [facility] + LACTIC [id number] 05:53:48 Test Item Value Reference Range Interpretation Comments PH (test code = 7.32-7.42 7337215081) PCO2 STEVO (test code See_Comment [Automa lester = 9675138642) message] The system which generated this result transmitted reference range : 41 - 51 mmHg. T he reference range was not used to interpret this result as normal/abnormal . PO2 STEVO (test code = See_Comment HH [Autom ated 1408490918) message] The system which generated this result transmitted reference range : 25 - 40 mmHg. T he reference range was not used to interpret this result as normal/abnormal . HCO3 STEVO (test code See_Comment L [Automa lester = 0328549558) message] The system which generated this result transmitted reference range : 24 - 28 mEq/L. The reference range was not used to interpr et this result as normal/abnormal . AC VBE(BEAKER) (test mEq/L code = 5563505846) THB STEVO (test code = 17.7 g/dL 13.5-18.0 6412032400) %O2HB STEVO (test code 93.8 % 52.0-63.0 H = 4133121241) %COHB STEVO (test code 2.1 % 0.0-1.5 H = 7560052778) %METHB STEVO (test 0.1 % 0.4-1.5 L code = 0871744305) VOL%O2 STEVO (test 23.3 % 6.0-12.0 H code = 2609455595) NA (test code = 142 mmol/L 135-145 4343985103) K+ (test code = 4.4 mmol/L 3.5-5.0 3281468243) AC CA IONZ (test 5.40 mg/dL 4.50-5.30 H code = 8887516923) GLUCOSE (test code = <20 70-110 LL 2741369866) LACTIC ACID (test 3.37 mmol/L 0.50-2.20 H code = 9639756454) ARPITA (test code = *ac gluc ARPITA) unmeasurable Lab Interpretation Abnormal (test code = 59428-5) [facility] METABOLIC PANEL (63778)2021-12-15 04:59:53 Test Item Value Reference Range Interpretation Comments NA (test code = 140 mmol/L 135-145 6472178186) K (test code = 4.8 mmol/L 3.5-5.0 9342831811) CL (test code = 100 mmol/L 98-108 7866277396) CO2 TOTAL (test code = 20 mmol/L 23-31 L 9901235866) AGAP (test code = 2-16 H 8552465781) BUN (test code = 14 mg/dL 7-23 4276656634) GLUCOSE (test code = 1083 mg/dL 70-110 HH 4058472733) CREATININE (test code = 0.80 mg/dL 0.60-1.25 3571332811) TOTAL BILI (test code = 1.0 mg/dL 0.1-1.2 9200958108) CALCIUM (test code = 12.0 mg/dL 8.6-10.6 H 4985127169) T PROTEIN (test code = 8.1 g/dL 6.3-8.2 9114689170) ALBUMIN (test code = 4.7 g/dL 3.5-5.0 3965816936) ALK PHOS (test code = 173 U/L 34-122 H 0018236965) ALTv (test code = 36 U/L 5-50 1742-6) AST(SGOT) (test code = 18 U/L 13-40 4804148453) eGFR (test code = mL/min/1.73m2 6288233138) ARPITA (test code = ARPITA) Association of [...] tests). Lab Interpretation Abnormal (test code = 08458-1) [facility] [id number] 03:51:43 Test Item Value Reference Interpretation Comments Range TROPONIN I (test <0.012 See_Comment [Automated code = 0767621140) message] The system which generated this result [...] biotin. Lab Interpretation Normal (test code = 43146-5) [facility]MINAL [id number] 03:48:23 Test Item Value Reference Range Interpretation Comments NT-proBNP (test code 71 pg/mL See_Comment [Autom ated = 6347573053) message] The system which generated this result transmitted reference range : <=125. The reference range was not used to interpret this result as normal/abnormal . ARPITA (test code = ARPITA) Biotin has been reported to cause a negative bias, interpret results relative to patient's use of biotin. Lab Interpretation Normal (test code = 70324-0) [facility] [id number] 03:48:23 Test Item Value Reference Range Interpretation Comments NT-proBNP (test code 71 pg/mL See_Comment [Autom ated = 2189525384) message] The system which generated this result transmitted reference range : <=125. The reference range was not used to interpret this result as normal/abnormal . ARPITA (test code = ARPITA) Biotin has been reported to cause a negative bias, interpret results relative to patient's use of biotin. Lab Interpretation Normal (test code = 10758-8) [facility] 03:39:44 Test Item Value Reference Range Interpretation Comments LIPASE (test code = 6828438038) 120 U/L 0-220 Lab Interpretation (test code = Normal 32059-8) [facility] THRMPLAS [id number] 03:38:23 Test Item Value Reference Range Interpretation Comments APTT Patient (test See_Comment [Automat ed code = 3173-2) message] The system which generated this result transmitted reference range : 23 - 38 Seconds . The reference range was not used to interpr et this result as normal/abnormal . ARPITA (test code = ARPITA) The [facility] patient population mean normal value for aPTT is 30 seconds. Lab Interpretation Normal (test code = 25060-7) [facility] THRM[facility] [id number] 03:38:23 Test Item Value Reference Range Interpretation Comments APTT Patient (test See_Comment [Automat ed code = 3173-2) message] The system which generated this result transmitted reference range : 23 - 38 Seconds . The reference range was not used to interpr et this result as normal/abnormal . ARPITA (test code = ARPITA) The [facility] patient population mean normal value for aPTT is 30 seconds. Lab Interpretation Normal (test code = 28114-0) [facility] TylerPROTHROMBIN TIME / [id number] 03:36:22 Test Item Value Reference Range Interpretation [...] tions. Lab Interpretation (test Normal code = 78279-1) General acute hospital WITH [id number] 03:35:42 Test Item Value Reference Range Interpretation [...] RDW-SD (test code = 44.7 fL 38.5-51.6 53069-9) RDW-CV (test code = 14.2 % 12.1-15.4 788-0) PLT (test code = See_Comment H [Automated 777-3) message] The system which generated this result transmit lester reference range : 150 - 328 10*3/ ?L. The reference range was not u sed to interpret th is result as normal/abnormal . MPV (test code = 11.5 fL 9.8-13.0 64365-0) NRBC/100 WBC (test See_Comment [Automat ed code = 3663992705) message] The system which generated this result transmit lester reference range : 0.0 - 10.0 /100 WBCs. The reference range was not used to interpret this result as normal/abnormal . NRBC x10^3 (test code <0.01 See_Comment [Auto mated = 1455851925) message] The system which generated this result transmit lester reference range : 10*3/?L. The reference range was not used to interpret this result as normal/abnormal . GRAN MAT (NEUT) % 85.2 % (test code = 770-8) IMM GRAN % (test code 0.90 % = 6030385269) LYMPH % (test code = 5.9 % 736-9) MONO % (test code = 7.8 % 5905-5) EOS % (test code = 0.0 % 713-8) BASO % (test code = 0.2 % 706-2) GRAN MAT x10^3(ANC) 12.85 10*3/uL 1.99-6.95 H (test code = 3580150649) IMM GRAN x10^3 (test 0.13 10*3/uL 0.00-0.06 H code = 5637488767) LYMPH x10^3 (test code 0.89 10*3/uL 1.09-3.23 L = 731-0) MONO x10^3 (test code 1.17 10*3/uL 0.36-1.02 H = 742-7) EOS x10^3 (test code = <0.03 0.06-0.53 L 711-2) BASO x10^3 (test code 0.03 10*3/uL 0.01-0.09 = 704-7) Lab Interpretation Abnormal (test code = 54338-6) [facility] TylerL[facility] Acid Whole [id number] 03:22:23 Test Item Value Reference Range Interpretation Comments LACTIC ACID (test code = 4.52 mmol/L 0.50-2.20 H 3287065429) Lab Interpretation (test code = Abnormal 67286-8) [facility] (NA, K, CL, CO2, GLUCOSE, BUN, CREATININE, CA)2021-11-28 11:13:09 Test Item Value Reference Range Interpretation Comments NA (test code = 137 mmol/L 135-145 0345271900) K (test code = 4.8 mmol/L 3.5-5.0 7470781949) CL (test code = 101 mmol/L 98-108 5027964107) CO2 TOTAL (test code = 24 mmol/L 23-31 8467786895) AGAP (test code = 2-16 1210569084) BUN (test code = 17 mg/dL 7-23 3821745194) GLUCOSE (test code = 323 mg/dL 70-110 H 4688170211) CREATININE (test code = 0.56 mg/dL 0.60-1.25 L 5068372087) CALCIUM (test code = 9.6 mg/dL 8.6-10.6 4261321533) eGFR (test code = mL/min/1.73m2 1549156135) ARPITA (test code = ARPITA) Association of [...] tests). Lab Interpretation Abnormal (test code = 78870-5) General acute hospital WITH [id number] 10:49:07 Test Item Value Reference Range Interpretation [...] RDW-SD (test code = 46.7 fL 38.5-51.6 74471-5) RDW-CV (test code = 14.5 % 12.1-15.4 788-0) PLT (test code = See_Comment H [Automated 777-3) message] The sy stem which generated this result transmitted reference range : 150 - 328 10*3/ ?L. The reference r boubacar was not used to interpret this result as normal/abnormal . MPV (test code = 10.2 fL 9.8-13.0 59390-3) NRBC/100 WBC (test See_Comment [Automat ed code = 8466510136) message] The system which generated this result transmitted reference range : 0.0 - 10.0 /100 WBCs. The refer ence range was not u sed to interpret th is result as normal/abnormal . NRBC x10^3 (test code <0.01 See_Comment [Auto mated = 9555961009) message] The s ystem which generated this result transmitted reference range : 10*3/?L. The reference range was not used to interpret this result as normal/abnormal . GRAN MAT (NEUT) % 70.2 % (test code = 770-8) IMM GRAN % (test code 0.80 % = 8048495637) LYMPH % (test code = 18.0 % 736-9) MONO % (test code = 8.5 % 5905-5) EOS % (test code = 2.1 % 713-8) BASO % (test code = 0.4 % 706-2) GRAN MAT x10^3(ANC) 7.63 10*3/uL 1.99-6.95 H (test code = 0976583043) IMM GRAN x10^3 (test 0.09 10*3/uL 0.00-0.06 H code = 0684376818) LYMPH x10^3 (test code 1.96 10*3/uL 1.09-3.23 = 731-0) MONO x10^3 (test code 0.92 10*3/uL 0.36-1.02 = 742-7) EOS x10^3 (test code = 0.23 10*3/uL 0.06-0.53 711-2) BASO x10^3 (test code 0.04 10*3/uL 0.01-0.09 = 704-7) Lab Interpretation Abnormal (test code = 69548-4) [facility] (NA, K, CL, CO2, GLUCOSE, BUN, CREATININE, CA)2021-11-27 09:48:58 Test Item Value Reference Range Interpretation Comments NA (test code = 135 mmol/L 135-145 7119726546) K (test code = 4.7 mmol/L 3.5-5.0 2379105721) CL (test code = 101 mmol/L 98-108 9647370410) CO2 TOTAL (test code = 23 mmol/L 23-31 6045536240) AGAP (test code = 2-16 8344593400) BUN (test code = 18 mg/dL 7-23 6264258589) GLUCOSE (test code = 346 mg/dL 70-110 H 7480275597) CREATININE (test code = 0.64 mg/dL 0.60-1.25 1359493153) CALCIUM (test code = 9.1 mg/dL 8.6-10.6 7440567821) eGFR (test code = mL/min/1.73m2 4829995688) ARPITA (test code = ARPITA) Association of [...] tests). Lab Interpretation Abnormal (test code = 52912-4) General acute hospital WITH [id number] 09:06:55 Test Item Value Reference Range Interpretation Comments WBC (test code = See_Comment [Automated 8482-2) message] The sy stem which generated this result transmitted reference range : 4.20 - 10.70 10*3/?L. The reference range was not used to interpret this result as normal/abnormal . RBC (test code = See_Comment [Automated 102-8) message] The sy stem which generated this [...] RDW-SD (test code = 47.7 fL 38.5-51.6 55018-9) RDW-CV (test code = 14.6 % 12.1-15.4 788-0) PLT (test code = See_Comment [Automated 777-3) message] The sy stem which generated this result transmitted reference range : 150 - 328 10*3/ ?L. The reference r boubacar was not used to interpret this result as normal/abnormal . MPV (test code = 9.9 fL 9.8-13.0 70199-4) NRBC/100 WBC (test See_Comment [Automat ed code = 6002497568) message] The system which generated this result transmitted reference range : 0.0 - 10.0 /100 WBCs. The refer ence range was not u sed to interpret th is result as normal/abnormal . NRBC x10^3 (test code <0.01 See_Comment [Auto mated = 3462755093) message] The s ystem which generated this result transmitted reference range : 10*3/?L. The reference range was not used to interpret this result as normal/abnormal . GRAN MAT (NEUT) % 62.6 % (test code = 770-8) IMM GRAN % (test code 1.30 % = 1750104714) LYMPH % (test code = 23.2 % 736-9) MONO % (test code = 9.6 % 5905-5) EOS % (test code = 2.9 % 713-8) BASO % (test code = 0.4 % 706-2) GRAN MAT x10^3(ANC) 5.85 10*3/uL 1.99-6.95 (test code = 5501927581) IMM GRAN x10^3 (test 0.12 10*3/uL 0.00-0.06 H code = 5644174701) LYMPH x10^3 (test code 2.17 10*3/uL 1.09-3.23 = 731-0) MONO x10^3 (test code 0.90 10*3/uL 0.36-1.02 = 742-7) EOS x10^3 (test code = 0.27 10*3/uL 0.06-0.53 711-2) BASO x10^3 (test code 0.04 10*3/uL 0.01-0.09 = 704-7) Lab Interpretation Abnormal (test code = 53666-2) [facility] CULTURE [id number] 02:01:46 Test Item Value Reference Range Interpretation Comments Blood Culture-Aerobic No organisms No growth Previo us (test code = 12720-0) isolated prelim inary verified result was Culture [...] Culture-Anaerobic isolated preliminar y (test code = 98007-3) verifi ed result was Culture In Progress [...] CDT Lab Interpretation Normal (test code = 65392-2) [facility] CULTURE [id number] 02:01:46 Test Item Value Reference Range Interpretation Comments Blood Culture-Aerobic No organisms No growth Previo us (test code = 78767-7) isolated prelim inary verified result was Culture [...] Culture-Anaerobic isolated preliminar y (test code = 83537-0) verifi ed result was Culture In Progress [...] CDT Lab Interpretation Normal (test code = 66103-6) [facility] [id number] 12:18:49 Test Item Value Reference Range Interpretation Comments NT-proBNP (test code 117 pg/mL See_Comment [Autom ated = 1049597784) message] The system which generated this result transmitted reference range : <=125. The reference range was not used to interpret this result as normal/abnormal . ARPITA (test code = ARPITA) Biotin has been reported to cause a negative bias, interpret results relative to patient's use of biotin. Lab Interpretation Normal (test code = 07081-0) [facility]OL[facility] (70817)2021-11-24 12:10:25 Test Item Value Reference Range Interpretation Comments NA (test code = 137 mmol/L 135-145 6173671787) K (test code = 4.6 mmol/L 3.5-5.0 6364609584) CL (test code = 108 mmol/L 98-108 3942119777) CO2 TOTAL (test code = 20 mmol/L 23-31 L 4539779958) AGAP (test code = 2-16 0008897356) BUN (test code = 12 mg/dL 7-23 4590893916) GLUCOSE (test code = 186 mg/dL 70-110 H 0730868534) CREATININE (test code = 0.49 mg/dL 0.60-1.25 L 0246774627) TOTAL BILI (test code = 0.7 mg/dL 0.1-1.7 4203828369) CALCIUM (test code = 8.7 mg/dL 8.6-10.6 4903296171) T PROTEIN (test code = 6.9 g/dL 6.3-8.2 1755093831) ALBUMIN (test code = 3.7 g/dL 3.5-5.0 7108435851) ALK PHOS (test code = 114 U/L 34-122 7793137407) ALTv (test code = 75 U/L 5-50 H 1742-6) AST(SGOT) (test code = 27 U/L 13-40 3063344506) eGFR (test code = mL/min/1.73m2 6256598918) ARPITA (test code = ARPITA) Association of [...] tests). Lab Interpretation Abnormal (test code = 92838-9) General acute hospital WITH [id number] 11:14:25 Test Item Value Reference Range Interpretation Comments WBC (test code = See_Comment [Automated 9602-2) message] The sy stem which generated this [...] RDW-SD (test code = 48.7 fL 38.5-51.6 01656-7) RDW-CV (test code = 15.0 % 12.1-15.4 788-0) PLT (test code = See_Comment [Automated 777-3) message] The sy stem which generated this result transmitted reference range : 150 - 328 10*3/ ?L. The reference r boubacar was not used to interpret this result as normal/abnormal . MPV (test code = 10.4 fL 9.8-13.0 14583-4) NRBC/100 WBC (test See_Comment [Automat ed code = 0376105194) message] The system which generated this result transmitted reference range : 0.0 - 10.0 /100 WBCs. The refer ence range was not u sed to interpret th is result as normal/abnormal . NRBC x10^3 (test code <0.01 See_Comment [Auto mated = 1808706526) message] The s ystem which generated this result transmitted reference range : 10*3/?L. The reference range was not used to interpret this result as normal/abnormal . GRAN MAT (NEUT) % 65.5 % (test code = 770-8) IMM GRAN % (test code 0.80 % = 1283274153) LYMPH % (test code = 20.9 % 736-9) MONO % (test code = 9.7 % 5905-5) EOS % (test code = 2.7 % 713-8) BASO % (test code = 0.4 % 706-2) GRAN MAT x10^3(ANC) 5.41 10*3/uL 1.99-6.95 (test code = 5580475010) IMM GRAN x10^3 (test 0.07 10*3/uL 0.00-0.06 H code = 6318835209) LYMPH x10^3 (test code 1.73 10*3/uL 1.09-3.23 = 731-0) MONO x10^3 (test code 0.80 10*3/uL 0.36-1.02 = 742-7) EOS x10^3 (test code = 0.22 10*3/uL 0.06-0.53 711-2) BASO x10^3 (test code 0.03 10*3/uL 0.01-0.09 = 704-7) Lab Interpretation Abnormal (test code = 00992-0) [facility] [id number] 13:16:44 Test Item Value Reference Range Interpretation Comments NT-proBNP (test code 157 pg/mL See_Comment H [Autom ated = 5352051833) message] The system which generated this result transmitted reference range : <=125. The reference range was not used to interpret this result as normal/abnormal . ARPITA (test code = ARPITA) Biotin has been reported to cause a negative bias, interpret results relative to patient's use of biotin. Lab Interpretation Abnormal (test code = 62102-0) [facility] (11658)2021-11-23 13:08:45 Test Item Value Reference Range Interpretation Comments NA (test code = 141 mmol/L 135-145 5035806468) K (test code = 4.2 mmol/L 3.5-5.0 4486734991) CL (test code = 110 mmol/L 98-108 H 3385396041) CO2 TOTAL (test code = 24 mmol/L 23-31 6708301185) AGAP (test code = 2-16 0669000469) BUN (test code = 11 mg/dL 7-23 2593662839) GLUCOSE (test code = 142 mg/dL 70-110 H 1150281280) CREATININE (test code = 0.61 mg/dL 0.60-1.25 6059241243) TOTAL BILI (test code = 0.7 mg/dL 0.1-1.4 2487603826) CALCIUM (test code = 8.5 mg/dL 8.6-10.6 L 7505393246) T PROTEIN (test code = 6.7 g/dL 6.3-8.2 2813211919) ALBUMIN (test code = 3.6 g/dL 3.5-5.0 7036012499) ALK PHOS (test code = 120 U/L 34-122 8705518278) ALTv (test code = 88 U/L 5-50 H 1742-6) AST(SGOT) (test code = 27 U/L 13-40 0989894096) eGFR (test code = mL/min/1.73m2 6008698302) ARPITA (test code = ARPITA) Association of [...] tests). Lab Interpretation Abnormal (test code = 47197-1) [facility]45 Test Item Value Reference Range Interpretation Comments MAGNESIUM (test code = 4020127931) 1.7 mg/dL 1.7-2.4 Lab Interpretation (test code = Normal 19158-2) General acute hospital WITH [id number] 11:57:56 Test Item Value Reference Range Interpretation [...] RDW-SD (test code = 48.9 fL 38.5-51.6 74730-0) RDW-CV (test code = 14.9 % 12.1-15.4 788-0) PLT (test code = See_Comment [Automated 777-3) message] The sy stem which generated this result transmitted reference range : 150 - 328 10*3/ ?L. The reference r boubacar was not used to interpret this result as normal/abnormal . MPV (test code = 9.4 fL 9.8-13.0 L 44041-0) NRBC/100 WBC (test See_Comment [Automat ed code = 5798401251) message] The system which generated this result transmitted reference range : 0.0 - 10.0 /100 WBCs. The refer ence range was not u sed to interpret th is result as normal/abnormal . NRBC x10^3 (test code <0.01 See_Comment [Auto mated = 0820616232) message] The s ystem which generated this result transmitted reference range : 10*3/?L. The reference range was not used to interpret this result as normal/abnormal . GRAN MAT (NEUT) % 63.9 % (test code = 770-8) IMM GRAN % (test code 0.70 % = 8078021504) LYMPH % (test code = 22.7 % 736-9) MONO % (test code = 9.6 % 5905-5) EOS % (test code = 2.7 % 713-8) BASO % (test code = 0.4 % 706-2) GRAN MAT x10^3(ANC) 4.75 10*3/uL 1.99-6.95 (test code = 7543242959) IMM GRAN x10^3 (test 0.05 10*3/uL 0.00-0.06 code = 5753809688) LYMPH x10^3 (test code 1.69 10*3/uL 1.09-3.23 = 731-0) MONO x10^3 (test code 0.71 10*3/uL 0.36-1.02 = 742-7) EOS x10^3 (test code = 0.20 10*3/uL 0.06-0.53 711-2) BASO x10^3 (test code 0.03 10*3/uL 0.01-0.09 = 704-7) Lab Interpretation Abnormal (test code = 71671-1) [facility] [id number] 19:18:39 Test Item Value Reference Range Interpretation Comments VIT B12 (test code = 249 pg/mL 240-930 4224235437) ARPITA (test code = ARPITA) Biotin has been reported to cause a positive bias, interpret results relative to patient's use of biotin. Lab Interpretation (test Normal code = 14650-1) [facility], [id number] 19:18:39 Test Item Value Reference Range Interpretation Comments VIT B12 (test code = 249 pg/mL 240-930 2637740876) ARPITA (test code = ARPITA) Biotin has been reported to cause a positive bias, interpret results relative to patient's use of biotin. Lab Interpretation (test Normal code = 75426-4) [facility] D, [id number] 17:30:28 Test Item Value Reference Range Interpretation Comments VIT D 25OH (test code = 16 ng/mL 25-80 L 12743-6) ARPITA (test code = ARPITA) Deficiency: <20 ng/mLInsufficiency: 20-24 ng/mLOptimal: 25-80 ng/mL Lab Interpretation (test Abnormal code = 04466-0) [facility], [id number] 17:30:28 Test Item Value Reference Range Interpretation Comments VIT D 25OH (test code = 16 ng/mL 25-80 L 11365-9) ARPITA (test code = ARPITA) Deficiency: <20 ng/mLInsufficiency: 20-24 ng/mLOptimal: 25-80 ng/mL Lab Interpretation (test Abnormal code = 27940-5) [facility]AL[facility]2022-[facility]-11 16:07:32 Test Item Value Reference Interpretation Comments Range Procalcitonin (test 0.04 ng/mL See_Comment [Automa lester code = 2351513775) message] The system which generated this result [...] lung abscess/empyema. For further information please refer to:[email or web address] Lab Interpretation Normal (test code = 53140-2) [facility]2022-[facility]-11 16:07:32 Test Item Value Reference Range Interpretation Comments Procalcitonin (test 0.04 ng/mL <0.07 code = 2067730606) ARPITA (test code = ARPITA) INTERPRETATION OF [...] biotics/default.asp Lab Interpretation Normal (test code = 37213-6) [facility] TylerSEDIMENTATION [id number] 13:21:10 Test Item Value Reference Range Interpretation Comments ESR (test code = See_Comment H [Automated message] 7824835308) The system [employer] generated this result transmitted ref erence range: 0 - 10 m m/HR. The reference r boubacar was not used to interpret this result as normal/abnor mal. Lab Interpretation (test Abnormal code = 65474-7) [facility] TylerGLYCOSYLATED HEMOGLOBIN (A1C)2021-11-22 13:12:27 Test Item Value Reference Range Interpretation Comments HGB A1C (test code = 6.3 % 4.0-5.7 H 4548-4) ARPITA (test code = ARPITA) Reference RangesNormal: <5.7%Prediabetes: 5.7 - 6.4%Diabetes: > 6.5% Lab Interpretation (test Abnormal code = 63918-3) [facility]AL [id number] 11:53:14 Test Item Value Reference Range Interpretation Comments NT-proBNP (test code 16 pg/mL See_Comment [Autom ated = 3777179298) message] The system which generated this result transmitted reference range : <=125. The reference range was not used to interpret this result as normal/abnormal . ARPITA (test code = ARPITA) Biotin has been reported to cause a negative bias, interpret results relative to patient's use of biotin. Lab Interpretation Normal (test code = 10043-1) [facility] TylerCOMP[facility] METABOLIC PANEL (36818)2021-11-22 11:44:55 Test Item Value Reference Range Interpretation Comments NA (test code = 142 mmol/L 135-145 4998163668) K (test code = 3.9 mmol/L 3.5-5.0 9959923588) CL (test code = 108 mmol/L 98-108 6151060239) CO2 TOTAL (test code = 24 mmol/L 23-31 4191135011) AGAP (test code = 2-16 3064222628) BUN (test code = 11 mg/dL 7-23 9256414904) GLUCOSE (test code = 205 mg/dL 70-110 H 8091554353) CREATININE (test code = 0.71 mg/dL 0.60-1.25 1324129244) TOTAL BILI (test code = 0.7 mg/dL 0.1-1.9 6187560139) CALCIUM (test code = 8.9 mg/dL 8.6-10.6 0515879161) T PROTEIN (test code = 7.3 g/dL 6.3-8.2 4261561330) ALBUMIN (test code = 3.8 g/dL 3.5-5.0 9617731119) ALK PHOS (test code = 135 U/L 34-122 H 9802358909) ALTv (test code = 120 U/L 5-50 H 1742-6) AST(SGOT) (test code = 33 U/L 13-40 1849412378) eGFR (test code = mL/min/1.73m2 1686410917) ARPITA (test code = ARPITA) Association of [...] tests). Lab Interpretation Abnormal (test code = 88605-3) [facility] 11:44:55 Test Item Value Reference Range Interpretation Comments MAGNESIUM (test code = 9623874162) 1.6 mg/dL 1.7-2.4 L Lab Interpretation (test code = Abnormal 23455-7) [facility]OSPHORUS2022-[facility]-11 11:44:35 Test Item Value Reference Range Interpretation Comments PHOSPHORUS (test code = 0264708932) 4.1 mg/dL 2.5-5.0 Lab Interpretation (test code = Normal 56894-7) [facility] TylerCREATINE [id number] 11:44:15 Test Item Value Reference Range Interpretation Comments CK (test code = 7489648406) 50 U/L 33-194 Lab Interpretation (test code = Normal 95557-3) [facility] TylerCREAT[facility] [id number] 11:44:15 Test Item Value Reference Range Interpretation Comments CK (test code = 9779164706) 50 U/L 33-194 Lab Interpretation (test code = Normal 92263-3) [facility] TylerCBC WITH [id number] 11:28:14 Test Item Value Reference Range Interpretation Comments WBC (test code = See_Comment [Automated 2122-2) message] The sy stem which generated this result transmitted reference range : 4.20 - 10.70 10*3/?L. The reference range was not used to interpret this result as normal/abnormal . RBC (test code = See_Comment [Automated 903-8) message] The sy stem which generated this [...] RDW-SD (test code = 48.4 fL 38.5-51.6 32783-9) RDW-CV (test code = 15.1 % 12.1-15.4 788-0) PLT (test code = See_Comment [Automated 777-3) message] The sy stem which generated this result transmitted reference range : 150 - 328 10*3/ ?L. The reference r boubacar was not used to interpret this result as normal/abnormal . MPV (test code = 10.2 fL 9.8-13.0 48779-0) NRBC/100 WBC (test See_Comment [Automat ed code = 7847470293) message] The system which generated this result transmitted reference range : 0.0 - 10.0 /100 WBCs. The refer ence range was not u sed to interpret th is result as normal/abnormal . NRBC x10^3 (test code <0.01 See_Comment [Auto mated = 5912415893) message] The s ystem which generated this result transmitted reference range : 10*3/?L. The reference range was not used to interpret this result as normal/abnormal . GRAN MAT (NEUT) % 67.8 % (test code = 770-8) IMM GRAN % (test code 0.80 % = 5137219893) LYMPH % (test code = 19.8 % 736-9) MONO % (test code = 8.7 % 5905-5) EOS % (test code = 2.7 % 713-8) BASO % (test code = 0.2 % 706-2) GRAN MAT x10^3(ANC) 6.56 10*3/uL 1.99-6.95 (test code = 5974345870) IMM GRAN x10^3 (test 0.08 10*3/uL 0.00-0.06 H code = 5537715739) LYMPH x10^3 (test code 1.91 10*3/uL 1.09-3.23 = 731-0) MONO x10^3 (test code 0.84 10*3/uL 0.36-1.02 = 742-7) EOS x10^3 (test code = 0.26 10*3/uL 0.06-0.53 711-2) BASO x10^3 (test code <0.03 0.01-0.09 = 704-7) Lab Interpretation Abnormal (test code = 66697-7) [facility] [id number] 10:56:10 Test Item Value Reference Range Interpretation Comments IRON (test code = 4763193833) 46 ug/dL 50-160 L TIBC (test code = 9803164807) 299 ug/dL 250-410 % FE SAT (test code = 1030052978) 15 % 20-50 L Lab Interpretation (test code = Abnormal 92858-0) [facility] [id number] 10:56:10 Test Item Value Reference Range Interpretation Comments IRON (test code = 7015498391) 46 ug/dL 50-160 L TIBC (test code = 8997706133) 299 ug/dL 250-410 % FE SAT (test code = 5570310679) 15 % 20-50 L Lab Interpretation (test code = Abnormal 02853-8) [facility]ERR[facility]IN [id number] 10:13:03 Test Item Value Reference Range Interpretation Comments FERRITIN (test code = 89.2 ng/mL 18-464 6773043988) ARPITA (test code = ARPITA) Biotin has been reported to cause a negative bias, interpret results relative to patient's use of biotin. Lab Interpretation (test Normal code = 17184-2) [facility] TylerFERMSTIN [id number] 10:13:03 Test Item Value Reference Range Interpretation Comments FERRITIN (test code = 89.2 ng/mL 18.0-464.0 5190882014) ARPITA (test code = ARPITA) Biotin has been reported to cause a negative bias, interpret results relative to patient's use of biotin. Lab Interpretation (test Normal code = 23029-9) [facility] TylerTHYROID STIMULATING [id number] 10:09:06 Test Item Value Reference Range Interpretation Comments TSH (test code = See_Comment [Automated message] 5586575044) The system [employer] generated this result transmitted ref erence range: 0.45 - 4 .70 mIU/L. The refe rence range was not u sed to interpret this result as normal/abnor mal. Lab Interpretation (test Normal code = 46102-3) [facility] TylerTHY[facility] STIM[facility]ATING [id number] 10:09:06 Test Item Value Reference Range Interpretation Comments TSH (test code = See_Comment [Automated message] 7617666000) The system [employer] generated this result transmitted ref erence range: 0.45 - 4 .70 mIU/L. The refe rence range was not u sed to interpret this result as normal/abnor mal. Lab Interpretation (test Normal code = 68429-0) [facility]MINAL [id number] 09:47:44 Test Item Value Reference Range Interpretation Comments NT-proBNP (test code 12 pg/mL See_Comment [Autom ated = 2373198307) message] The system which generated this result transmitted reference range : <=125. The reference range was not used to interpret this result as normal/abnormal . ARPITA (test code = ARPITA) Biotin has been reported to cause a negative bias, interpret results relative to patient's use of biotin. Lab Interpretation Normal (test code = 58037-1) [facility] TylerLIPID PANEL (11801)(TOTAL CHOLESTEROL, TRIGLYCERIDES, HDL)2021-11-22 09:35:58 Test Item Value Reference Range Interpretation Comments CHOL (test code = 250 mg/dL 120-200 H 1705695022) HDL (test code = 34 mg/dL See_Comment L [Automated message] 3402099686) The system [employer] generated this result transmit lester reference range : >=40. The refer ence range was not u sed to interpret th is result as normal/abnormal . HDLC RATIO (test code = See_Comment H [Au tomated message] 0404501474) The system [employer] generated this result transmit lester reference range : <=5.0. The refe rence range was not u sed to interpret th is result as normal/abnormal . TRIG (test code = 394 mg/dL 30-170 H 2676965566) LDL CHOL (test code = 137 mg/dL See_Comment [Auto mated message] 43771-2) The system [employer] generated this result transmit lester reference range : <=160. The refe rence range was not u sed to interpret th is result as normal/abnormal . VLDL (test code = 79 mg/dL 5-60 H 5402268948) Lab Interpretation (test Abnormal code = 57827-7) [facility] TylerLIPID PAN[facility] (76664)(TOTAL CHOLESTEROL, TRIGLYCERIDES, HDL)2021-11-22 09:35:58 Test Item Value Reference Range Interpretation Comments CHOL (test code = 250 mg/dL 120-200 H 6518201808) HDL (test code = 34 mg/dL >40 L 1646767031) HDLC RATIO (test code = See_Comment H [Au tomated message] 3831419086) The system [employer] generated this result transmit lester reference range : <=5.0. The refe rence range was not u sed to interpret th is result as normal/abnormal . TRIG (test code = 394 mg/dL 30-170 H 4471239290) LDL CHOL (test code = 137 mg/dL See_Comment [Auto mated message] 53918-7) The system [employer] generated this result transmit lester reference range : <=160. The refe rence range was not u sed to interpret th is result as normal/abnormal . VLDL (test code = 79 mg/dL 5-60 H 2433321008) Lab Interpretation (test Abnormal code = 89030-0) [facility] 09:35:42 Test Item Value Reference Range Interpretation Comments MAGNESIUM (test code = 9268725972) 1.5 mg/dL 1.7-2.4 L Lab Interpretation (test code = Abnormal 82551-4) [facility]OSPH[facility]US2022-[facility]-11 09:35:42 Test Item Value Reference Range Interpretation Comments PHOSPHORUS (test code = 5840160638) 3.3 mg/dL 2.5-5.0 Lab Interpretation (test code = Normal 79016-7) [facility] TylerCOMP[facility] METABOLIC PANEL (75671)2021-11-22 01:29:09 Test Item Value Reference Range Interpretation Comments NA (test code = 142 mmol/L 135-145 2162120632) K (test code = 3.7 mmol/L 3.5-5.0 5035220686) CL (test code = 103 mmol/L 98-108 2285048697) CO2 TOTAL (test code = 27 mmol/L 23-31 1679855154) AGAP (test code = 2-16 8348537975) BUN (test code = 11 mg/dL 7-23 5622447452) GLUCOSE (test code = 166 mg/dL 70-110 H 9025883713) CREATININE (test code = 0.61 mg/dL 0.60-1.25 0861889528) TOTAL BILI (test code = 0.8 mg/dL 0.1-1.9 7404020279) CALCIUM (test code = 9.3 mg/dL 8.6-10.6 8911829646) T PROTEIN (test code = 7.4 g/dL 6.3-8.2 4662478876) ALBUMIN (test code = 4.0 g/dL 3.5-5.0 8520142206) ALK PHOS (test code = 164 U/L 34-122 H 5726596991) ALTv (test code = 149 U/L 5-50 H 1742-6) AST(SGOT) (test code = 29 U/L 13-40 7321948178) eGFR (test code = mL/min/1.73m2 1461492064) ARPITA (test code = ARPITA) Association of [...] tests). Lab Interpretation Abnormal (test code = 07011-2) [facility]ACTIV[facility] PARTIAL THRMPLAS [id number] 01:23:46 Test Item Value Reference Range Interpretation Comments APTT Patient (test See_Comment [Automat ed code = 3173-2) message] The system which generated this result transmitted reference range : 23 - 38 Seconds . The reference range was not used to interpr et this result as normal/abnormal . ARPITA (test code = ARPITA) The [facility] patient population mean normal value for aPTT is 30 seconds. Lab Interpretation Normal (test code = 41278-3) [facility] TylerPROTHROMBIN TIME / [id number] 01:21:51 Test Item Value Reference Range Interpretation [...] tions. Lab Interpretation (test Normal code = 10746-9) [facility] TylerCBC WITH [id number] 01:15:28 Test Item Value Reference Range Interpretation [...] RDW-SD (test code = 48.4 fL 38.5-51.6 75609-8) RDW-CV (test code = 15.1 % 12.1-15.4 788-0) PLT (test code = See_Comment [Automated 777-3) message] The sy stem which generated this result transmitted reference range : 150 - 328 10*3/ ?L. The reference r boubacar was not used to interpret this result as normal/abnormal . MPV (test code = 10.1 fL 9.8-13.0 84509-4) NRBC/100 WBC (test See_Comment [Automat ed code = 5553546607) message] The system which generated this result transmitted reference range : 0.0 - 10.0 /100 WBCs. The refer ence range was not u sed to interpret th is result as normal/abnormal . NRBC x10^3 (test code <0.01 See_Comment [Auto mated = 2768299223) message] The s ystem which generated this result transmitted reference range : 10*3/?L. The reference range was not used to interpret this result as normal/abnormal . GRAN MAT (NEUT) % 72.7 % (test code = 770-8) IMM GRAN % (test code 0.60 % = 0791295467) LYMPH % (test code = 15.5 % 736-9) MONO % (test code = 8.2 % 5905-5) EOS % (test code = 2.6 % 713-8) BASO % (test code = 0.4 % 706-2) GRAN MAT x10^3(ANC) 7.83 10*3/uL 1.99-6.95 H (test code = 3812097061) IMM GRAN x10^3 (test 0.07 10*3/uL 0.00-0.06 H code = 3223629349) LYMPH x10^3 (test code 1.67 10*3/uL 1.09-3.23 = 731-0) MONO x10^3 (test code 0.88 10*3/uL 0.36-1.02 = 742-7) EOS x10^3 (test code = 0.28 10*3/uL 0.06-0.53 711-2) BASO x10^3 (test code 0.04 10*3/uL 0.01-0.09 = 704-7) Lab Interpretation Abnormal (test code = 92851-3) [facility] TylerLactic Acid Whole [id number] 01:14:32 Test Item Value Reference Range Interpretation Comments LACTIC ACID (test code = 1.86 mmol/L 0.50-2.20 1603002545) Lab Interpretation (test code = Normal 11276-3) [facility] TylerCHEM [id number] 12:58:00 Test Item Value Reference Range Interpretation Comments Glucose Lvl (test code = Glucose Lvl) 228 70-99 [facility]2022-04-12 12:58:00 Test Item Value Reference Range Interpretation Comments BUN (test code = BUN) 23 7-22 [facility]2022-04-12 12:58:00 Test Item Value Reference Range Interpretation Comments Creatinine Lvl (test code = Creatinine 0.78 0.50-1.40 Lvl) [facility]2022-04-12 12:58:00 Test Item Value Reference Range Interpretation Comments Sodium Lvl (test code = Sodium Lvl) 138 135-145 [facility]2022-04-12 12:58:00 Test Item Value Reference Range Interpretation Comments Potassium Lvl (test code = Potassium 4.6 3.5-5.1 Lvl) [facility]2022-04-12 12:58:00 Test Item Value Reference Range Interpretation Comments Chloride Lvl (test code = Chloride Lvl) 108 95-109 [facility]2022-04-12 12:58:00 Test Item Value Reference Range Interpretation Comments CO2 (test code = CO2) 23 24-32 [facility]2022-04-12 12:58:00 Test Item Value Reference Range Interpretation Comments Calcium Lvl (test code = Calcium Lvl) 9.0 8.5-10.5 [facility]2022-04-12 12:58:00 Test Item Value Reference Range Interpretation Comments AGAP (test code = AGAP) 11.6 10.0-20.0 [facility]2022-04-12 12:58:00 Test Item Value Reference Range Interpretation Comments eGFR (test code = eGFR) 116 [facility] 12:58:00 Test Item Value Reference Range Interpretation Comments WBC (test code = WBC) 10.5 3.7-10.4 [place] 357782-04-12 12:58:00 Test Item Value Reference Range Interpretation Comments RBC (test code = RBC) 5.48 4.70-6.10 [place] 357782-04-12 12:58:00 Test Item Value Reference Range Interpretation Comments Hgb (test code = Hgb) 16.0 14.0-18.0 [place] 357782-04-12 12:58:00 Test Item Value Reference Range Interpretation Comments Hct (test code = Hct) 49.8 42.0-54.0 [place] 357782-04-12 12:58:00 Test Item Value Reference Range Interpretation Comments MCV (test code = MCV) 90.8 80.0-94.0 [place] 357782-04-12 12:58:00 Test Item Value Reference Range Interpretation Comments MCH (test code = MCH) 29.1 pg 27.0-31.0 [place] 357782-04-12 12:58:00 Test Item Value Reference Range Interpretation Comments MCHC (test code = MCHC) 32.1 32.0-36.0 [place] 357782-04-12 12:58:00 Test Item Value Reference Range Interpretation Comments RDW (test code = RDW) 15.5 11.5-14.5 [place] 357782-04-12 12:58:00 Test Item Value Reference Range Interpretation Comments Platelet (test code = Platelet) 312 133-450 [place] 357782-04-12 12:58:00 Test Item Value Reference Range Interpretation Comments MPV (test code = MPV) 8.3 7.4-10.4 [place] [address]853-04-12 12:58:00 Test Item Value Reference Range Interpretation Comments PT (test code = PT) 12.9 s 12.0-14.7 [place] 17[address]-04-12 12:58:00 Test Item Value Reference Range Interpretation Comments INR (test code = INR) 0.98 1 0.85-1.17 [place] 17853-04-12 12:58:00 Test Item Value Reference Range Interpretation Comments PTT (test code = PTT) 27.3 s 22.9-35.8 [place] [address]853-04-12 12:58:00 Test Item Value Reference Range Interpretation Comments Segs (test code = Segs) 71.2 45.0-75.0 [place] 17853-04-12 12:58:00 Test Item Value Reference Range Interpretation Comments Lymphocytes (test code = Lymphocytes) 21.1 20.0-40.0 [place] [address]-04-12 12:58:00 Test Item Value Reference Range Interpretation Comments Monocytes (test code = Monocytes) 6.8 2.0-12.0 [place] 357782-04-12 12:58:00 Test Item Value Reference Range Interpretation Comments Eosinophils (test code = 0.1 See_Comment [A utomated message] The Eosinophils) system which ge nerated this result tra nsmitted reference range : <=4.0. The reference r boubacar was not used to int erpret this result as normal/abnormal . [place] 357782-04-12 12:58:00 Test Item Value Reference Range Interpretation Comments Basophils (test code = 0.8 See_Comment [Aut omated message] The Basophils) system which ge nerated this result tra nsmitted reference range : <=1.0. The reference r boubacar was not used to int erpret this result as normal/abnormal . [place] 357782-04-12 12:58:00 Test Item Value Reference Range Interpretation Comments Neutrophils # (test code = Neutrophils 7.5 1.5-8.1 #) [place] 357782-04-12 12:58:00 Test Item Value Reference Range Interpretation Comments Lymphocytes # (test code = Lymphocytes 2.2 1.0-5.5 #) [place] 357782-04-12 12:58:00 Test Item Value Reference Range Interpretation Comments Monocytes # (test code 0.7 See_Comment [Aut omated message] The = Monocytes #) system which generated this result tra nsmitted reference range : <=0.8. The reference r boubacar was not used to int erpret this result as normal/abnormal . [place] 357782-04-12 12:58:00 Test Item Value Reference Range Interpretation Comments Basophils # (test code 0.1 See_Comment [Aut omated message] The = Basophils #) system which generated this result tra nsmitted reference range : <=0.2. The reference r boubacar was not used to int erpret this result as normal/abnormal . [facility]2022-04-12 12:58:00 Test Item Value Reference Range Interpretation Comments Glucose Lvl (test code = Glucose Lvl) 228 70-99 [place] 718872-04-12 12:58:00 Test Item Value Reference Range Interpretation Comments BUN (test code = BUN) 23 7-22 [place] 718872-04-12 12:58:00 Test Item Value Reference Range Interpretation Comments Creatinine Lvl (test code = Creatinine 0.78 0.50-1.40 Lvl) [place] 718872-04-12 12:58:00 Test Item Value Reference Range Interpretation Comments Sodium Lvl (test code = Sodium Lvl) 138 135-145 [place] 718872-04-12 12:58:00 Test Item Value Reference Range Interpretation Comments Potassium Lvl (test code = Potassium 4.6 3.5-5.1 Lvl) [place] 718872-04-12 12:58:00 Test Item Value Reference Range Interpretation Comments Chloride Lvl (test code = Chloride Lvl) 108 95-109 [place] 718872-04-12 12:58:00 Test Item Value Reference Range Interpretation Comments CO2 (test code = CO2) 23 24-32 [place] 718872-04-12 12:58:00 Test Item Value Reference Range Interpretation Comments Calcium Lvl (test code = Calcium Lvl) 9.0 8.5-10.5 [facility]2022-04-12 12:58:00 Test Item Value Reference Range Interpretation Comments AGAP (test code = AGAP) 11.6 10.0-20.0 [facility]2022-04-12 12:58:00 Test Item Value Reference Range Interpretation Comments eGFR (test code = eGFR) 116 [facility]OMSDPGZO8764[facility] 12:58:00 Test Item Value Reference Range Interpretation Comments WBC (test code = WBC) 10.5 3.7-10.4 [facility] HospitalYgxigdoBRAUUFSQMZ4487-92-34 12:58:00 Test Item Value Reference Range Interpretation Comments RBC (test code = RBC) 5.48 4.70-6.10 [place] 357782-04-12 12:58:00 Test Item Value Reference Range Interpretation Comments Hgb (test code = Hgb) 16.0 14.0-18.0 [place] 357782-04-12 12:58:00 Test Item Value Reference Range Interpretation Comments Hct (test code = Hct) 49.8 42.0-54.0 [place] 357782-04-12 12:58:00 Test Item Value Reference Range Interpretation Comments MCV (test code = MCV) 90.8 80.0-94.0 [place] 357782-04-12 12:58:00 Test Item Value Reference Range Interpretation Comments MCH (test code = MCH) 29.1 pg 27.0-31.0 [place] 357782-04-12 12:58:00 Test Item Value Reference Range Interpretation Comments MCHC (test code = MCHC) 32.1 32.0-36.0 [place] [address]-04-12 12:58:00 Test Item Value Reference Range Interpretation Comments RDW (test code = RDW) 15.5 11.5-14.5 [facility] HospitalQpirrwoEMXICVMBDQ7790-58-48 12:58:00 Test Item Value Reference Range Interpretation Comments Platelet (test code = Platelet) 312 133-450 [facility] HospitalOenfjyyOAXMSFPYQB3796-36-03 12:58:00 Test Item Value Reference Range Interpretation Comments MPV (test code = MPV) 8.3 7.4-10.4 [facility] HospitalTggnowxTFWEERHKUI1516-20-41 12:58:00 Test Item Value Reference Range Interpretation Comments PT (test code = PT) 12.9 s 12.0-14.7 [facility] HospitalEojfbmvWZXHGOTWOH7735-26-90 12:58:00 Test Item Value Reference Range Interpretation Comments INR (test code = INR) 0.98 1 0.85-1.17 [facility] HospitalUpjbhpiOMFCTXYQOK8116-78-88 12:58:00 Test Item Value Reference Range Interpretation Comments PTT (test code = PTT) 27.3 s 22.9-35.8 [facility] HospitalWuftjroTDNWMJKLNQ3752-94-27 12:58:00 Test Item Value Reference Range Interpretation Comments Segs (test code = Segs) 71.2 45.0-75.0 [facility] HospitalYzgrjmwQSZRYXOBGG1501-88-36 12:58:00 Test Item Value Reference Range Interpretation Comments Lymphocytes (test code = Lymphocytes) 21.1 20.0-40.0 [facility] HospitalRaxntvbWKHDIXPCMN9420-17-30 12:58:00 Test Item Value Reference Range Interpretation Comments Monocytes (test code = Monocytes) 6.8 2.0-12.0 [facility] HospitalFvjltbbCNPFISRBIM4549-16-27 12:58:00 Test Item Value Reference Range Interpretation Comments Eosinophils (test code = 0.1 See_Comment [A utomated message] The Eosinophils) system which ge nerated this result tra nsmitted reference range : <=4.0. The reference r boubacar was not used to int erpret this result as normal/abnormal . [facility] HospitalAsyxjftFTXBKRLTEI6532-12-02 12:58:00 Test Item Value Reference Range Interpretation Comments Basophils (test code = 0.8 See_Comment [Aut omated message] The Basophils) system which ge nerated this result tra nsmitted reference range : <=1.0. The reference r boubacar was not used to int erpret this result as normal/abnormal . [facility] HospitalBohndfdZIBTUSCDQE2364-60-67 12:58:00 Test Item Value Reference Range Interpretation Comments Neutrophils # (test code = Neutrophils 7.5 1.5-8.1 #) [facility] HospitalDanvslwSKTZKELOJH2543-92-20 12:58:00 Test Item Value Reference Range Interpretation Comments Lymphocytes # (test code = Lymphocytes 2.2 1.0-5.5 #) [place] 357782-04-12 12:58:00 Test Item Value Reference Range Interpretation Comments Monocytes # (test code 0.7 See_Comment [Aut omated message] The = Monocytes #) system which generated this result tra nsmitted reference range : <=0.8. The reference r boubacar was not used to int erpret this result as normal/abnormal . [place] 357782-04-12 12:58:00 Test Item Value Reference Range Interpretation Comments Basophils # (test code 0.1 See_Comment [Aut omated message] The = Basophils #) system which generated this result tra nsmitted reference range : <=0.2. The reference r boubacar was not used to int erpret this result as normal/abnormal . [facility] [id number] 12:58:00 Test Item Value Reference Range Interpretation Comments Glucose Lvl (test code = Glucose Lvl) 228 70-99 [facility] [id number] 12:58:00 Test Item Value Reference Range Interpretation Comments BUN (test code = BUN) 23 7-22 [facility] [id number] 12:58:00 Test Item Value Reference Range Interpretation Comments Creatinine Lvl (test code = Creatinine 0.78 0.50-1.40 Lvl) [facility] [id number] 12:58:00 Test Item Value Reference Range Interpretation Comments Sodium Lvl (test code = Sodium Lvl) 138 135-145 [facility] [id number] 12:58:00 Test Item Value Reference Range Interpretation Comments Potassium Lvl (test code = Potassium 4.6 3.5-5.1 Lvl) [facility] [id number] 12:58:00 Test Item Value Reference Range Interpretation Comments Chloride Lvl (test code = Chloride Lvl) 108 95-109 [facility] [id number] 12:58:00 Test Item Value Reference Range Interpretation Comments CO2 (test code = CO2) 23 24-32 [facility] [id number] 12:58:00 Test Item Value Reference Range Interpretation Comments Calcium Lvl (test code = Calcium Lvl) 9.0 8.5-10.5 [facility] [id number] 12:58:00 Test Item Value Reference Range Interpretation Comments AGAP (test code = AGAP) 11.6 10.0-20.0 [facility]2022-04-12 12:58:00 Test Item Value Reference Range Interpretation Comments eGFR (test code = eGFR) 116 [facility] HospitalEjuydanLBQBGUFROO5520-30-55 12:58:00 Test Item Value Reference Range Interpretation Comments WBC (test code = WBC) 10.5 3.7-10.4 [facility] HospitalQxdbgtaOFHLETXJTW9378-41-36 12:58:00 Test Item Value Reference Range Interpretation Comments RBC (test code = RBC) 5.48 4.70-6.10 [facility] HospitalLhztidbGOHJBPIESF1282-49-18 12:58:00 Test Item Value Reference Range Interpretation Comments Hgb (test code = Hgb) 16.0 14.0-18.0 [facility] HospitalIadayrtETMIXAWCRD3449-90-42 12:58:00 Test Item Value Reference Range Interpretation Comments Hct (test code = Hct) 49.8 42.0-54.0 [facility] HospitalMbkmfnkYHPGJMOMIH3501-96-75 12:58:00 Test Item Value Reference Range Interpretation Comments MCV (test code = MCV) 90.8 80.0-94.0 [facility] HospitalOietbvoUASLTNHSBN6437-18-17 12:58:00 Test Item Value Reference Range Interpretation Comments MCH (test code = MCH) 29.1 pg 27.0-31.0 [facility] HospitalAvchutqFGASHEYFCY7525-34-90 12:58:00 Test Item Value Reference Range Interpretation Comments MCHC (test code = MCHC) 32.1 32.0-36.0 [facility] HospitalQinelkaFAXPDMYGLO5513-64-28 12:58:00 Test Item Value Reference Range Interpretation Comments RDW (test code = RDW) 15.5 11.5-14.5 [facility] HospitalQjczzxnKGVKSWIFRH2751-10-23 12:58:00 Test Item Value Reference Range Interpretation Comments Platelet (test code = Platelet) 312 133-450 [facility] HospitalFlszmapYJTKCQUXBX1168-65-97 12:58:00 Test Item Value Reference Range Interpretation Comments MPV (test code = MPV) 8.3 7.4-10.4 [facility] HospitalUaqfjhgKEEWLOVHMF9789-09-90 12:58:00 Test Item Value Reference Range Interpretation Comments PT (test code = PT) 12.9 s 12.0-14.7 [facility] HospitalOzxrzqwWBHXJCVOKZ9875-83-57 12:58:00 Test Item Value Reference Range Interpretation Comments INR (test code = INR) 0.98 1 0.85-1.17 [place] 357782-04-12 12:58:00 Test Item Value Reference Range Interpretation Comments PTT (test code = PTT) 27.3 s 22.9-35.8 [place] 357782-04-12 12:58:00 Test Item Value Reference Range Interpretation Comments Segs (test code = Segs) 71.2 45.0-75.0 [place] 357782-04-12 12:58:00 Test Item Value Reference Range Interpretation Comments Lymphocytes (test code = Lymphocytes) 21.1 20.0-40.0 [place] [address]-04-12 12:58:00 Test Item Value Reference Range Interpretation Comments Monocytes (test code = Monocytes) 6.8 2.0-12.0 [place] 357782-04-12 12:58:00 Test Item Value Reference Range Interpretation Comments Eosinophils (test code = 0.1 See_Comment [A utomated message] The Eosinophils) system which ge nerated this result tra nsmitted reference range : <=4.0. The reference r boubacar was not used to int erpret this result as normal/abnormal . [place] 357782-04-12 12:58:00 Test Item Value Reference Range Interpretation Comments Basophils (test code = 0.8 See_Comment [Aut omated message] The Basophils) system which ge nerated this result tra nsmitted reference range : <=1.0. The reference r boubacar was not used to int erpret this result as normal/abnormal . [facility] HospitalXivgjctNNMEPQGBWF6926-96-43 12:58:00 Test Item Value Reference Range Interpretation Comments Neutrophils # (test code = Neutrophils 7.5 1.5-8.1 #) [place] 357782-04-12 12:58:00 Test Item Value Reference Range Interpretation Comments Lymphocytes # (test code = Lymphocytes 2.2 1.0-5.5 #) [place] 357782-04-12 12:58:00 Test Item Value Reference Range Interpretation Comments Monocytes # (test code 0.7 See_Comment [Aut omated message] The = Monocytes #) system which generated this result tra nsmitted reference range : <=0.8. The reference r bouabcar was not used to int erpret this result as normal/abnormal . [place] 357782-04-12 12:58:00 Test Item Value Reference Range Interpretation Comments Basophils # (test code 0.1 See_Comment [Aut omated message] The = Basophils #) system which generated this result tra nsmitted reference range : <=0.2. The reference r boubacar was not used to int erpret this result as normal/abnormal . [place] 718872-04-12 12:58:00 Test Item Value Reference Range Interpretation Comments Glucose Lvl (test code = Glucose Lvl) 228 70-99 [place] 718872-04-12 12:58:00 Test Item Value Reference Range Interpretation Comments BUN (test code = BUN) 23 7-22 [place] 718872-04-12 12:58:00 Test Item Value Reference Range Interpretation Comments Creatinine Lvl (test code = Creatinine 0.78 0.50-1.40 Lvl) [place] 718872-04-12 12:58:00 Test Item Value Reference Range Interpretation Comments Sodium Lvl (test code = Sodium Lvl) 138 135-145 [place] 718872-04-12 12:58:00 Test Item Value Reference Range Interpretation Comments Potassium Lvl (test code = Potassium 4.6 3.5-5.1 Lvl) [place] 718872-04-12 12:58:00 Test Item Value Reference Range Interpretation Comments Chloride Lvl (test code = Chloride Lvl) 108 95-109 [place] 718872-04-12 12:58:00 Test Item Value Reference Range Interpretation Comments CO2 (test code = CO2) 23 24-32 [place] 718872-04-12 12:58:00 Test Item Value Reference Range Interpretation Comments Calcium Lvl (test code = Calcium Lvl) 9.0 8.5-10.5 [place] 718872-04-12 12:58:00 Test Item Value Reference Range Interpretation Comments AGAP (test code = AGAP) 11.6 10.0-20.0 [place] 718872-04-12 12:58:00 Test Item Value Reference Range Interpretation Comments eGFR (test code = eGFR) 116 [place] [address]-04-12 12:58:00 Test Item Value Reference Range Interpretation Comments WBC (test code = WBC) 10.5 3.7-10.4 [facility] HospitalJgrvqxuLWGNLLWNYT4693-24-58 12:58:00 Test Item Value Reference Range Interpretation Comments RBC (test code = RBC) 5.48 4.70-6.10 [facility] HospitalDbroejzTRURUCXLQW9131-65-67 12:58:00 Test Item Value Reference Range Interpretation Comments Hgb (test code = Hgb) 16.0 14.0-18.0 [place] 357782-04-12 12:58:00 Test Item Value Reference Range Interpretation Comments Hct (test code = Hct) 49.8 42.0-54.0 [place] 357782-04-12 12:58:00 Test Item Value Reference Range Interpretation Comments MCV (test code = MCV) 90.8 80.0-94.0 [place] 357782-04-12 12:58:00 Test Item Value Reference Range Interpretation Comments MCH (test code = MCH) 29.1 pg 27.0-31.0 [facility] HospitalFzgbovsOZXVHHLBMC9696-09-95 12:58:00 Test Item Value Reference Range Interpretation Comments MCHC (test code = MCHC) 32.1 32.0-36.0 [facility] HospitalPiwiylsJGEFRXNIFF0635-42-62 12:58:00 Test Item Value Reference Range Interpretation Comments RDW (test code = RDW) 15.5 11.5-14.5 [facility] HospitalFrleiouFROERJJUGA2872-33-41 12:58:00 Test Item Value Reference Range Interpretation Comments Platelet (test code = Platelet) 312 133-450 [facility] HospitalXgnzntcBCQPEBVNSI4771-52-01 12:58:00 Test Item Value Reference Range Interpretation Comments MPV (test code = MPV) 8.3 7.4-10.4 [place] 357782-04-12 12:58:00 Test Item Value Reference Range Interpretation Comments PT (test code = PT) 12.9 s 12.0-14.7 [place] 357782-04-12 12:58:00 Test Item Value Reference Range Interpretation Comments INR (test code = INR) 0.98 1 0.85-1.17 [place] 357782-04-12 12:58:00 Test Item Value Reference Range Interpretation Comments PTT (test code = PTT) 27.3 s 22.9-35.8 [place] [address]-04-12 12:58:00 Test Item Value Reference Range Interpretation Comments Segs (test code = Segs) 71.2 45.0-75.0 [place] [address]-04-12 12:58:00 Test Item Value Reference Range Interpretation Comments Lymphocytes (test code = Lymphocytes) 21.1 20.0-40.0 [place] [address]-04-12 12:58:00 Test Item Value Reference Range Interpretation Comments Monocytes (test code = Monocytes) 6.8 2.0-12.0 [place] [address]-04-12 12:58:00 Test Item Value Reference Range Interpretation Comments Eosinophils (test code = 0.1 See_Comment [A utomated message] The Eosinophils) system which ge nerated this result tra nsmitted reference range : <=4.0. The reference r boubacar was not used to int erpret this result as normal/abnormal . [place] 357782-04-12 12:58:00 Test Item Value Reference Range Interpretation Comments Basophils (test code = 0.8 See_Comment [Aut omated message] The Basophils) system which ge nerated this result tra nsmitted reference range : <=1.0. The reference r boubacar was not used to int erpret this result as normal/abnormal . [place] 357782-04-12 12:58:00 Test Item Value Reference Range Interpretation Comments Neutrophils # (test code = Neutrophils 7.5 1.5-8.1 #) [place] 357782-04-12 12:58:00 Test Item Value Reference Range Interpretation Comments Lymphocytes # (test code = Lymphocytes 2.2 1.0-5.5 #) [place] [address]-04-12 12:58:00 Test Item Value Reference Range Interpretation Comments Monocytes # (test code 0.7 See_Comment [Aut omated message] The = Monocytes #) system which generated this result tra nsmitted reference range : <=0.8. The reference r boubacar was not used to int erpret this result as normal/abnormal . [place] [address]-04-12 12:58:00 Test Item Value Reference Range Interpretation Comments Basophils # (test code 0.1 See_Comment [Aut omated message] The = Basophils #) system which generated this result tra nsmitted reference range : <=0.2. The reference r boubacar was not used to int erpret this result as normal/abnormal . [facility]2022-04-12 12:58:00 Test Item Value Reference Range Interpretation Comments Glucose Lvl (test code = Glucose Lvl) 228 70-99 [place] 718872-04-12 12:58:00 Test Item Value Reference Range Interpretation Comments BUN (test code = BUN) 23 7-22 [place] 718872-04-12 12:58:00 Test Item Value Reference Range Interpretation Comments Creatinine Lvl (test code = Creatinine 0.78 0.50-1.40 Lvl) [place] 718872-04-12 12:58:00 Test Item Value Reference Range Interpretation Comments Sodium Lvl (test code = Sodium Lvl) 138 135-145 [place] 718872-04-12 12:58:00 Test Item Value Reference Range Interpretation Comments Potassium Lvl (test code = Potassium 4.6 3.5-5.1 Lvl) [place] 718872-04-12 12:58:00 Test Item Value Reference Range Interpretation Comments Chloride Lvl (test code = Chloride Lvl) 108 95-109 [place] 718872-04-12 12:58:00 Test Item Value Reference Range Interpretation Comments CO2 (test code = CO2) 23 24-32 [place] 718872-04-12 12:58:00 Test Item Value Reference Range Interpretation Comments Calcium Lvl (test code = Calcium Lvl) 9.0 8.5-10.5 [place] 718872-04-12 12:58:00 Test Item Value Reference Range Interpretation Comments AGAP (test code = AGAP) 11.6 10.0-20.0 [place] 718872-04-12 12:58:00 Test Item Value Reference Range Interpretation Comments eGFR (test code = eGFR) 116 [place] 357782-04-12 12:58:00 Test Item Value Reference Range Interpretation Comments WBC (test code = WBC) 10.5 3.7-10.4 [place] 357782-04-12 12:58:00 Test Item Value Reference Range Interpretation Comments RBC (test code = RBC) 5.48 4.70-6.10 [place] [address]-04-12 12:58:00 Test Item Value Reference Range Interpretation Comments Hgb (test code = Hgb) 16.0 14.0-18.0 [place] [address]-04-12 12:58:00 Test Item Value Reference Range Interpretation Comments Hct (test code = Hct) 49.8 42.0-54.0 [place] 357782-04-12 12:58:00 Test Item Value Reference Range Interpretation Comments MCV (test code = MCV) 90.8 80.0-94.0 [place] [address]-04-12 12:58:00 Test Item Value Reference Range Interpretation Comments MCH (test code = MCH) 29.1 pg 27.0-31.0 [place] 357782-04-12 12:58:00 Test Item Value Reference Range Interpretation Comments MCHC (test code = MCHC) 32.1 32.0-36.0 [place] [address]-04-12 12:58:00 Test Item Value Reference Range Interpretation Comments RDW (test code = RDW) 15.5 11.5-14.5 [place] [address]-04-12 12:58:00 Test Item Value Reference Range Interpretation Comments Platelet (test code = Platelet) 312 133-450 [facility] HospitalUqdwjtsMUSEGCJVWD2466-56-99 12:58:00 Test Item Value Reference Range Interpretation Comments MPV (test code = MPV) 8.3 7.4-10.4 [place] [address]-04-12 12:58:00 Test Item Value Reference Range Interpretation Comments PT (test code = PT) 12.9 s 12.0-14.7 [place] [address]-04-12 12:58:00 Test Item Value Reference Range Interpretation Comments INR (test code = INR) 0.98 1 0.85-1.17 [place] [address]-04-12 12:58:00 Test Item Value Reference Range Interpretation Comments PTT (test code = PTT) 27.3 s 22.9-35.8 [place] [address]-04-12 12:58:00 Test Item Value Reference Range Interpretation Comments Segs (test code = Segs) 71.2 45.0-75.0 [place] [address]-04-12 12:58:00 Test Item Value Reference Range Interpretation Comments Lymphocytes (test code = Lymphocytes) 21.1 20.0-40.0 [place] 357782-04-12 12:58:00 Test Item Value Reference Range Interpretation Comments Monocytes (test code = Monocytes) 6.8 2.0-12.0 [place] 357782-04-12 12:58:00 Test Item Value Reference Range Interpretation Comments Eosinophils (test code = 0.1 See_Comment [A utomated message] The Eosinophils) system which ge nerated this result tra nsmitted reference range : <=4.0. The reference r boubacar was not used to int erpret this result as normal/abnormal . [place] 357782-04-12 12:58:00 Test Item Value Reference Range Interpretation Comments Basophils (test code = 0.8 See_Comment [Aut omated message] The Basophils) system which ge nerated this result tra nsmitted reference range : <=1.0. The reference r boubacar was not used to int erpret this result as normal/abnormal . [place] 357782-04-12 12:58:00 Test Item Value Reference Range Interpretation Comments Neutrophils # (test code = Neutrophils 7.5 1.5-8.1 #) [place] 357782-04-12 12:58:00 Test Item Value Reference Range Interpretation Comments Lymphocytes # (test code = Lymphocytes 2.2 1.0-5.5 #) [place] 357782-04-12 12:58:00 Test Item Value Reference Range Interpretation Comments Monocytes # (test code 0.7 See_Comment [Aut omated message] The = Monocytes #) system which generated this result tra nsmitted reference range : <=0.8. The reference r boubacar was not used to int erpret this result as normal/abnormal . [place] [address]-04-12 12:58:00 Test Item Value Reference Range Interpretation Comments Basophils # (test code 0.1 See_Comment [Aut omated message] The = Basophils #) system which generated this result tra nsmitted reference range : <=0.2. The reference r boubacar was not used to int erpret this result as normal/abnormal . [facility]2022-04-12 12:58:00 Test Item Value Reference Range Interpretation Comments Glucose Lvl (test code = Glucose Lvl) 228 70-99 [place] 718872-04-12 12:58:00 Test Item Value Reference Range Interpretation Comments BUN (test code = BUN) 23 7-22 [place] 718872-04-12 12:58:00 Test Item Value Reference Range Interpretation Comments Creatinine Lvl (test code = Creatinine 0.78 0.50-1.40 Lvl) [place] 718872-04-12 12:58:00 Test Item Value Reference Range Interpretation Comments Sodium Lvl (test code = Sodium Lvl) 138 135-145 [place] 718872-04-12 12:58:00 Test Item Value Reference Range Interpretation Comments Potassium Lvl (test code = Potassium 4.6 3.5-5.1 Lvl) [place] 718872-04-12 12:58:00 Test Item Value Reference Range Interpretation Comments Chloride Lvl (test code = Chloride Lvl) 108 95-109 [place] 718872-04-12 12:58:00 Test Item Value Reference Range Interpretation Comments CO2 (test code = CO2) 23 24-32 [place] 718872-04-12 12:58:00 Test Item Value Reference Range Interpretation Comments Calcium Lvl (test code = Calcium Lvl) 9.0 8.5-10.5 [place] 718872-04-12 12:58:00 Test Item Value Reference Range Interpretation Comments AGAP (test code = AGAP) 11.6 10.0-20.0 [place] 718872-04-12 12:58:00 Test Item Value Reference Range Interpretation Comments eGFR (test code = eGFR) 116 [place] 357782-04-12 12:58:00 Test Item Value Reference Range Interpretation Comments WBC (test code = WBC) 10.5 3.7-10.4 [place] [address]-04-12 12:58:00 Test Item Value Reference Range Interpretation Comments RBC (test code = RBC) 5.48 4.70-6.10 [place] 357782-04-12 12:58:00 Test Item Value Reference Range Interpretation Comments Hgb (test code = Hgb) 16.0 14.0-18.0 [place] [address]-04-12 12:58:00 Test Item Value Reference Range Interpretation Comments Hct (test code = Hct) 49.8 42.0-54.0 [place] 357782-04-12 12:58:00 Test Item Value Reference Range Interpretation Comments MCV (test code = MCV) 90.8 80.0-94.0 [place] [address]-04-12 12:58:00 Test Item Value Reference Range Interpretation Comments MCH (test code = MCH) 29.1 pg 27.0-31.0 [place] [address]-04-12 12:58:00 Test Item Value Reference Range Interpretation Comments MCHC (test code = MCHC) 32.1 32.0-36.0 [place] [address]-04-12 12:58:00 Test Item Value Reference Range Interpretation Comments RDW (test code = RDW) 15.5 11.5-14.5 [place] [address]-04-12 12:58:00 Test Item Value Reference Range Interpretation Comments Platelet (test code = Platelet) 312 133-450 [facility]qxwbsmOFUBKXAQGS5062-80-78 12:58:00 Test Item Value Reference Range Interpretation Comments MPV (test code = MPV) 8.3 7.4-10.4 [place] [address]-04-12 12:58:00 Test Item Value Reference Range Interpretation Comments PT (test code = PT) 12.9 s 12.0-14.7 [place] [address]-04-12 12:58:00 Test Item Value Reference Range Interpretation Comments INR (test code = INR) 0.98 1 0.85-1.17 [place] [address]-04-12 12:58:00 Test Item Value Reference Range Interpretation Comments PTT (test code = PTT) 27.3 s 22.9-35.8 [place] [address]-04-12 12:58:00 Test Item Value Reference Range Interpretation Comments Segs (test code = Segs) 71.2 45.0-75.0 [place] [address]-04-12 12:58:00 Test Item Value Reference Range Interpretation Comments Lymphocytes (test code = Lymphocytes) 21.1 20.0-40.0 [place] [address]-04-12 12:58:00 Test Item Value Reference Range Interpretation Comments Monocytes (test code = Monocytes) 6.8 2.0-12.0 [place] 357782-04-12 12:58:00 Test Item Value Reference Range Interpretation Comments Eosinophils (test code = 0.1 See_Comment [A utomated message] The Eosinophils) system which ge nerated this result tra nsmitted reference range : <=4.0. The reference r boubacar was not used to int erpret this result as normal/abnormal . [place] 357782-04-12 12:58:00 Test Item Value Reference Range Interpretation Comments Basophils (test code = 0.8 See_Comment [Aut omated message] The Basophils) system which ge nerated this result tra nsmitted reference range : <=1.0. The reference r boubacar was not used to int erpret this result as normal/abnormal . [place] 357782-04-12 12:58:00 Test Item Value Reference Range Interpretation Comments Neutrophils # (test code = Neutrophils 7.5 1.5-8.1 #) [place] 357782-04-12 12:58:00 Test Item Value Reference Range Interpretation Comments Lymphocytes # (test code = Lymphocytes 2.2 1.0-5.5 #) [place] 357782-04-12 12:58:00 Test Item Value Reference Range Interpretation Comments Monocytes # (test code 0.7 See_Comment [Aut omated message] The = Monocytes #) system which generated this result tra nsmitted reference range : <=0.8. The reference r boubacar was not used to int erpret this result as normal/abnormal . [place] [address]-04-12 12:58:00 Test Item Value Reference Range Interpretation Comments Basophils # (test code 0.1 See_Comment [Aut omated message] The = Basophils #) system which generated this result tra nsmitted reference range : <=0.2. The reference r boubacar was not used to int erpret this result as normal/abnormal . [place] 718872-04-12 12:58:00 Test Item Value Reference Range Interpretation Comments Glucose Lvl (test code = Glucose Lvl) 228 70-99 [facility] [id number] 12:58:00 Test Item Value Reference Range Interpretation Comments BUN (test code = BUN) 23 7-22 [facility]2022-04-12 12:58:00 Test Item Value Reference Range Interpretation Comments Creatinine Lvl (test code = Creatinine 0.78 0.50-1.40 Lvl) [place] 718872-04-12 12:58:00 Test Item Value Reference Range Interpretation Comments Sodium Lvl (test code = Sodium Lvl) 138 135-145 [place] 718872-04-12 12:58:00 Test Item Value Reference Range Interpretation Comments Potassium Lvl (test code = Potassium 4.6 3.5-5.1 Lvl) [place] 718872-04-12 12:58:00 Test Item Value Reference Range Interpretation Comments Chloride Lvl (test code = Chloride Lvl) 108 95-109 [place] 718872-04-12 12:58:00 Test Item Value Reference Range Interpretation Comments CO2 (test code = CO2) 23 24-32 [place] 718872-04-12 12:58:00 Test Item Value Reference Range Interpretation Comments Calcium Lvl (test code = Calcium Lvl) 9.0 8.5-10.5 [place] 718872-04-12 12:58:00 Test Item Value Reference Range Interpretation Comments AGAP (test code = AGAP) 11.6 10.0-20.0 [place] 718872-04-12 12:58:00 Test Item Value Reference Range Interpretation Comments eGFR (test code = eGFR) 116 [place] 357782-04-12 12:58:00 Test Item Value Reference Range Interpretation Comments WBC (test code = WBC) 10.5 3.7-10.4 [place] [address]-04-12 12:58:00 Test Item Value Reference Range Interpretation Comments RBC (test code = RBC) 5.48 4.70-6.10 [place] [address]-04-12 12:58:00 Test Item Value Reference Range Interpretation Comments Hgb (test code = Hgb) 16.0 14.0-18.0 [place] [address]-04-12 12:58:00 Test Item Value Reference Range Interpretation Comments Hct (test code = Hct) 49.8 42.0-54.0 [place] 357782-04-12 12:58:00 Test Item Value Reference Range Interpretation Comments MCV (test code = MCV) 90.8 80.0-94.0 [place] 357782-04-12 12:58:00 Test Item Value Reference Range Interpretation Comments MCH (test code = MCH) 29.1 pg 27.0-31.0 [place] 357782-04-12 12:58:00 Test Item Value Reference Range Interpretation Comments MCHC (test code = MCHC) 32.1 32.0-36.0 [place] 357782-04-12 12:58:00 Test Item Value Reference Range Interpretation Comments RDW (test code = RDW) 15.5 11.5-14.5 [place] 357782-04-12 12:58:00 Test Item Value Reference Range Interpretation Comments Platelet (test code = Platelet) 312 133-450 [place] 357782-04-12 12:58:00 Test Item Value Reference Range Interpretation Comments MPV (test code = MPV) 8.3 7.4-10.4 [place] 357782-04-12 12:58:00 Test Item Value Reference Range Interpretation Comments PT (test code = PT) 12.9 s 12.0-14.7 [place] [address]-04-12 12:58:00 Test Item Value Reference Range Interpretation Comments INR (test code = INR) 0.98 1 0.85-1.17 [place] [address]-04-12 12:58:00 Test Item Value Reference Range Interpretation Comments PTT (test code = PTT) 27.3 s 22.9-35.8 [place] [address]-04-12 12:58:00 Test Item Value Reference Range Interpretation Comments Segs (test code = Segs) 71.2 45.0-75.0 [place] [address]-04-12 12:58:00 Test Item Value Reference Range Interpretation Comments Lymphocytes (test code = Lymphocytes) 21.1 20.0-40.0 [place] [address]-04-12 12:58:00 Test Item Value Reference Range Interpretation Comments Monocytes (test code = Monocytes) 6.8 2.0-12.0 [place] [address]-04-12 12:58:00 Test Item Value Reference Range Interpretation Comments Eosinophils (test code = 0.1 See_Comment [A utomated message] The Eosinophils) system which ge nerated this result tra nsmitted reference range : <=4.0. The reference r boubacar was not used to int erpret this result as normal/abnormal . [facility]:58:00 Test Item Value Reference Range Interpretation Comments Basophils (test code = 0.8 See_Comment [Aut omated message] The Basophils) system which ge nerated this result tra nsmitted reference range : <=1.0. The reference r boubacar was not used to int erpret this result as normal/abnormal . [facility]FmavpjkHNQTROOLEI5426-43-96 12:58:00 Test Item Value Reference Range Interpretation Comments Neutrophils # (test code = Neutrophils 7.5 1.5-8.1 #) [facility]IfhowtzEDEHIKUHXP1725-82-35 12:58:00 Test Item Value Reference Range Interpretation Comments Lymphocytes # (test code = Lymphocytes 2.2 1.0-5.5 #) [id number] 12:58:00 Test Item Value Reference Range Interpretation Comments Monocytes # (test code 0.7 See_Comment [Aut omated message] The = Monocytes #) system which generated this result tra nsmitted reference range : <=0.8. The reference r boubacar was not used to int erpret this result as normal/abnormal . [facility] HospitalThkcinrFVOZHDWXFV0951-95-71 12:58:00 Test Item Value Reference Range Interpretation Comments Basophils # (test code 0.1 See_Comment [Aut omated message] The = Basophils #) system which generated this result tra nsmitted reference range : <=0.2. The reference r boubacar was not used to int erpret this result as normal/abnormal . [id number] 11:59:00 Test Item Value Reference Range Interpretation Comments Tube Num CSF (test code = Tube Num CSF) 3 1 [facility] [id number] 11:59:00 Test Item Value Reference Range Interpretation Comments Color CSF (test code Colorless (10/24/21 6:59 = Color CSF) AM) [facility] [id number] 11:59:00 Test Item Value Reference Range Interpretation Comments Clarity CSF (test code = Clear (10/24/21 6:59 Clarity CSF) AM) [facility]2022-04-12 11:59:00 Test Item Value Reference Range Interpretation Comments Supernat CSF (test Colorless (10/24/21 6:59 code = Supernat CSF) AM) [facility]2022-04-12 11:59:00 Test Item Value Reference Range Interpretation Comments Nucleated Cells CSF 3 See_Comment [Automa lester message] The (test code = Nucleated syste m which generated Cells CSF) this result tra nsmitted reference range : <=53. The reference r boubacar was not used to int erpret this result as normal/abnormal . [facility]2022-04-12 11:59:00 Test Item Value Reference Range Interpretation Comments RBC CSF (test code = 64 See_Comment [Autom ated message] The RBC CSF) system which ge nerated this result transmit lester reference range : <=03. The reference range was not used to interpr et this result as dany l/abnormal. [facility]2022-04-12 11:59:00 Test Item Value Reference Range Interpretation Comments Comment CSF (test Differential not performed code = Comment CSF) on WBC count of less than 5. Cell counts performed on CSF greater than two hours after collection may not be pharmaceutical service representative due to cellular degradation. [facility]2022-04-12 11:59:00 Test Item Value Reference Range Interpretation Comments Glucose CSF (test code = Glucose CSF) 129 45-80 [facility]2022-04-12 11:59:00 Test Item Value Reference Range Interpretation Comments Protein CSF (test code = Protein CSF) 110 15-45 [facility] [id number] 11:59:00 Test Item Value Reference Range Interpretation Comments Gram Stain Report Gram Stain Performed By: (test code = Gram [facility] Stain Report) [facility] w/Gram [id number] 11:59:00 Test Item Value Reference Range Interpretation Comments Culture: CSF w/Gram 48 Hour Report - No Stain (test code = Growth, Holding Culture: CSF w/Gram Stain) [facility]2022-04-12 11:59:00 Test Item Value Reference Range Interpretation Comments Tube Num CSF (test code = Tube Num CSF) 3 1 [facility]2022-04-12 11:59:00 Test Item Value Reference Range Interpretation Comments Color CSF (test code Colorless (10/24/21 6:59 = Color CSF) AM) [facility]2022-04-12 11:59:00 Test Item Value Reference Range Interpretation Comments Clarity CSF (test code = Clear (10/24/21 6:59 Clarity CSF) AM) [facility]2022-04-12 11:59:00 Test Item Value Reference Range Interpretation Comments Supernat CSF (test Colorless (10/24/21 6:59 code = Supernat CSF) AM) [facility]2022-04-12 11:59:00 Test Item Value Reference Range Interpretation Comments Nucleated Cells CSF 3 See_Comment [Automa lester message] The (test code = Nucleated syste m which generated Cells CSF) this result tra nsmitted reference range : <=53. The reference r boubacar was not used to int erpret this result as normal/abnormal . [facility]2022-04-12 11:59:00 Test Item Value Reference Range Interpretation Comments RBC CSF (test code = 64 See_Comment [Autom ated message] The RBC CSF) system which ge nerated this result transmit lester reference range : <=03. The reference range was not used to interpr et this result as dany l/abnormal. [facility]2022-04-12 11:59:00 Test Item Value Reference Range Interpretation Comments Comment CSF (test Differential not performed code = Comment CSF) on WBC count of less than 5. Cell counts performed on CSF greater than two hours after collection may not be pharmaceutical service representative due to cellular degradation. [facility]2022-04-12 11:59:00 Test Item Value Reference Range Interpretation Comments Glucose CSF (test code = Glucose CSF) 129 45-80 [facility]2022-04-12 11:59:00 Test Item Value Reference Range Interpretation Comments Protein CSF (test code = Protein CSF) 110 15-45 [facility] [id number] 11:59:00 Test Item Value Reference Range Interpretation Comments Gram Stain Report Gram Stain Performed By: (test code = Gram [facility] Stain Report) [facility] CSF w/Gram [id number] 11:59:00 Test Item Value Reference Range Interpretation Comments Culture: CSF w/Gram 48 Hour Report - No Stain (test code = Growth, Holding Culture: CSF w/Gram Stain) [facility] [id number] 11:59:00 Test Item Value Reference Range Interpretation Comments Tube Num CSF (test code = Tube Num CSF) 3 1 [facility]2022-04-12 11:59:00 Test Item Value Reference Range Interpretation Comments Color CSF (test code Colorless (10/24/21 6:59 = Color CSF) AM) [facility]2022-04-12 11:59:00 Test Item Value Reference Range Interpretation Comments Clarity CSF (test code = Clear (10/24/21 6:59 Clarity CSF) AM) [facility]2022-04-12 11:59:00 Test Item Value Reference Range Interpretation Comments Supernat CSF (test Colorless (10/24/21 6:59 code = Supernat CSF) AM) [facility]2022-04-12 11:59:00 Test Item Value Reference Range Interpretation Comments Nucleated Cells CSF 3 See_Comment [Automa lester message] The (test code = Nucleated syste m which generated Cells CSF) this result tra nsmitted reference range : <=53. The reference r boubacar was not used to int erpret this result as normal/abnormal . [facility]2022-04-12 11:59:00 Test Item Value Reference Range Interpretation Comments RBC CSF (test code = 64 See_Comment [Autom ated message] The RBC CSF) system which ge nerated this result transmit lester reference range : <=03. The reference range was not used to interpr et this result as dany l/abnormal. [facility]2022-04-12 11:59:00 Test Item Value Reference Range Interpretation Comments Comment CSF (test Differential not performed code = Comment CSF) on WBC count of less than 5. Cell counts performed on CSF greater than two hours after collection may not be pharmaceutical service representative due to cellular degradation. [facility] [id number] 11:59:00 Test Item Value Reference Range Interpretation Comments Glucose CSF (test code = Glucose CSF) 129 45-80 [facility] [id number] 11:59:00 Test Item Value Reference Range Interpretation Comments Protein CSF (test code = Protein CSF) 110 15-45 [facility] [id number] 11:59:00 Test Item Value Reference Range Interpretation Comments Gram Stain Report Gram Stain Performed By: (test code = Gram [facility] Stain Report) [facility] CSF w/Gram [id number] 11:59:00 Test Item Value Reference Range Interpretation Comments Culture: CSF w/Gram 48 Hour Report - No Stain (test code = Growth, Holding Culture: CSF w/Gram Stain) [facility]2022-04-12 11:59:00 Test Item Value Reference Range Interpretation Comments Tube Num CSF (test code = Tube Num CSF) 3 1 [facility]2022-04-12 11:59:00 Test Item Value Reference Range Interpretation Comments Color CSF (test code Colorless (10/24/21 6:59 = Color CSF) AM) [facility]2022-04-12 11:59:00 Test Item Value Reference Range Interpretation Comments Clarity CSF (test code = Clear (10/24/21 6:59 Clarity CSF) AM) [facility]2022-04-12 11:59:00 Test Item Value Reference Range Interpretation Comments Supernat CSF (test Colorless (10/24/21 6:59 code = Supernat CSF) AM) [facility]2022-04-12 11:59:00 Test Item Value Reference Range Interpretation Comments Nucleated Cells CSF 3 See_Comment [Automa lester message] The (test code = Nucleated syste m which generated Cells CSF) this result tra nsmitted reference range : <=53. The reference r boubacar was not used to int erpret this result as normal/abnormal . [facility]2022-04-12 11:59:00 Test Item Value Reference Range Interpretation Comments RBC CSF (test code = 64 See_Comment [Autom ated message] The RBC CSF) system which ge nerated this result transmit lester reference range : <=03. The reference range was not used to interpr et this result as dany l/abnormal. [facility]2022-04-12 11:59:00 Test Item Value Reference Range Interpretation Comments Comment CSF (test Differential not performed code = Comment CSF) on WBC count of less than 5. Cell counts performed on CSF greater than two hours after collection may not be pharmaceutical service representative due to cellular degradation. [facility]2022-04-12 11:59:00 Test Item Value Reference Range Interpretation Comments Glucose CSF (test code = Glucose CSF) 129 45-80 [facility] [id number] 11:59:00 Test Item Value Reference Range Interpretation Comments Protein CSF (test code = Protein CSF) 110 15-45 [facility] [id number] 11:59:00 Test Item Value Reference Range Interpretation Comments Gram Stain Report Gram Stain Performed By: (test code = Gram [facility] Stain Report) [facility] CSF w/Gram [id number] 11:59:00 Test Item Value Reference Range Interpretation Comments Culture: CSF w/Gram 48 Hour Report - No Stain (test code = Growth, Holding Culture: CSF w/Gram Stain) [facility] [id number] 11:59:00 Test Item Value Reference Range Interpretation Comments Tube Num CSF (test code = Tube Num CSF) 3 1 [facility]2022-04-12 11:59:00 Test Item Value Reference Range Interpretation Comments Color CSF (test code Colorless (10/24/21 6:59 = Color CSF) AM) [facility]2022-04-12 11:59:00 Test Item Value Reference Range Interpretation Comments Clarity CSF (test code = Clear (10/24/21 6:59 Clarity CSF) AM) [facility]2022-04-12 11:59:00 Test Item Value Reference Range Interpretation Comments Supernat CSF (test Colorless (10/24/21 6:59 code = Supernat CSF) AM) [facility]2022-04-12 11:59:00 Test Item Value Reference Range Interpretation Comments Nucleated Cells CSF 3 See_Comment [Automa lester message] The (test code = Nucleated syste m which generated Cells CSF) this result tra nsmitted reference range : <=53. The reference r boubacar was not used to int erpret this result as normal/abnormal . [facility]2022-04-12 11:59:00 Test Item Value Reference Range Interpretation Comments RBC CSF (test code = 64 See_Comment [Autom ated message] The RBC CSF) system which ge nerated this result transmit lester reference range : <=03. The reference range was not used to interpr et this result as dany l/abnormal. [facility]2022-04-12 11:59:00 Test Item Value Reference Range Interpretation Comments Comment CSF (test Differential not performed code = Comment CSF) on WBC count of less than 5. Cell counts performed on CSF greater than two hours after collection may not be pharmaceutical service representative due to cellular degradation. [facility] [id number] 11:59:00 Test Item Value Reference Range Interpretation Comments Glucose CSF (test code = Glucose CSF) 129 45-80 [facility] [id number] 11:59:00 Test Item Value Reference Range Interpretation Comments Protein CSF (test code = Protein CSF) 110 15-45 [facility] [id number] 11:59:00 Test Item Value Reference Range Interpretation Comments Gram Stain Report Gram Stain Performed By: (test code = Gram [facility] Stain Report) [facility] CSF w/Gram [id number] 11:59:00 Test Item Value Reference Range Interpretation Comments Culture: CSF w/Gram 48 Hour Report - No Stain (test code = Growth, Holding Culture: CSF w/Gram Stain) [facility]2022-04-12 11:59:00 Test Item Value Reference Range Interpretation Comments Tube Num CSF (test code = Tube Num CSF) 3 1 [facility]2022-04-12 11:59:00 Test Item Value Reference Range Interpretation Comments Color CSF (test code Colorless (10/24/21 6:59 = Color CSF) AM) [facility]2022-04-12 11:59:00 Test Item Value Reference Range Interpretation Comments Clarity CSF (test code = Clear (10/24/21 6:59 Clarity CSF) AM) [facility]2022-04-12 11:59:00 Test Item Value Reference Range Interpretation Comments Supernat CSF (test Colorless (10/24/21 6:59 code = Supernat CSF) AM) [facility]2022-04-12 11:59:00 Test Item Value Reference Range Interpretation Comments Nucleated Cells CSF 3 See_Comment [Automa lester message] The (test code = Nucleated syste m which generated Cells CSF) this result tra nsmitted reference range : <=53. The reference r boubacar was not used to int erpret this result as normal/abnormal . [facility]2022-04-12 11:59:00 Test Item Value Reference Range Interpretation Comments RBC CSF (test code = 64 See_Comment [Autom ated message] The RBC CSF) system which ge nerated this result transmit lester reference range : <=03. The reference range was not used to interpr et this result as dany l/abnormal. [facility]2022-04-12 11:59:00 Test Item Value Reference Range Interpretation Comments Comment CSF (test Differential not performed code = Comment CSF) on WBC count of less than 5. Cell counts performed on CSF greater than two hours after collection may not be pharmaceutical service representative due to cellular degradation. [facility] [id number] 11:59:00 Test Item Value Reference Range Interpretation Comments Glucose CSF (test code = Glucose CSF) 129 45-80 [facility] [id number] 11:59:00 Test Item Value Reference Range Interpretation Comments Protein CSF (test code = Protein CSF) 110 15-45 [facility] [id number] 11:59:00 Test Item Value Reference Range Interpretation Comments Gram Stain Report Gram Stain Performed By: (test code = Gram [facility] Stain Report) [facility] CSF w/Gram [id number] 11:59:00 Test Item Value Reference Range Interpretation Comments Culture: CSF w/Gram 48 Hour Report - No Stain (test code = Growth, Holding Culture: CSF w/Gram Stain) [facility]2022-04-12 11:59:00 Test Item Value Reference Range Interpretation Comments Tube Num CSF (test code = Tube Num CSF) 3 1 [facility]2022-04-12 11:59:00 Test Item Value Reference Range Interpretation Comments Color CSF (test code Colorless (10/24/21 6:59 = Color CSF) AM) [facility]2022-04-12 11:59:00 Test Item Value Reference Range Interpretation Comments Clarity CSF (test code = Clear (10/24/21 6:59 Clarity CSF) AM) [facility]2022-04-12 11:59:00 Test Item Value Reference Range Interpretation Comments Supernat CSF (test Colorless (10/24/21 6:59 code = Supernat CSF) AM) [facility]2022-04-12 11:59:00 Test Item Value Reference Range Interpretation Comments Nucleated Cells CSF 3 See_Comment [Automa lester message] The (test code = Nucleated syste m which generated Cells CSF) this result tra nsmitted reference range : <=53. The reference r boubacar was not used to int erpret this result as normal/abnormal . [facility] [id number] 11:59:00 Test Item Value Reference Range Interpretation Comments RBC CSF (test code = 64 See_Comment [Autom ated message] The RBC CSF) system which ge nerated this result transmit lester reference range : <=03. The reference range was not used to interpr et this result as dany l/abnormal. [facility] [id number] 11:59:00 Test Item Value Reference Range Interpretation Comments Comment CSF (test Differential not performed code = Comment CSF) on WBC count of less than 5. Cell counts performed on CSF greater than two hours after collection may not be pharmaceutical service representative due to cellular degradation. [facility] [id number] 11:59:00 Test Item Value Reference Range Interpretation Comments Glucose CSF (test code = Glucose CSF) 129 45-80 [facility] [id number] 11:59:00 Test Item Value Reference Range Interpretation Comments Protein CSF (test code = Protein CSF) 110 15-45 [facility] [id number] 11:59:00 Test Item Value Reference Range Interpretation Comments Gram Stain Report Gram Stain Performed By: (test code = Gram [facility] Stain Report) [facility] w/Gram [id number] 11:59:00 Test Item Value Reference Range Interpretation Comments Culture: CSF w/Gram 48 Hour Report - No Stain (test code = Growth, Holding Culture: CSF w/Gram Stain) [facility]inte[facility]igsWizIAL [id number] 14:46:00 Test Item Value Reference Range Interpretation Comments Hgb A1C (test code = Hgb A1C) 5.6 [facility] PointeannAxentraIAL [id number] 14:46:00 Test Item Value Reference Range Interpretation Comments Hgb A1C (test code = Hgb A1C) 5.6 [facility] PointeGigsWizIAL [id number] 14:46:00 Test Item Value Reference Range Interpretation Comments Hgb A1C (test code = Hgb A1C) 5.6 [facility] PointeGigsWizIAL [id number] 14:46:00 Test Item Value Reference Range Interpretation Comments Hgb A1C (test code = Hgb A1C) 5.6 [facility] PointeGigsWizIAL [id number] 14:46:00 Test Item Value Reference Range Interpretation Comments Hgb A1C (test code = Hgb A1C) 5.6 [facility] [id number] 14:46:00 Test Item Value Reference Range Interpretation Comments Hgb A1C (test code = Hgb A1C) 5.6 [facility] [id number] 14:46:00 Test Item Value Reference Range Interpretation Comments Hgb A1C (test code = Hgb A1C) 5.6 [facility] [id number] 11:43:00 Test Item Value Reference Range Interpretation Comments Glucose Lvl (test code = Glucose Lvl) 418 70-99 [facility]2022-04-11 11:43:00 Test Item Value Reference Range Interpretation Comments BUN (test code = BUN) 22 7-22 [facility]2022-04-11 11:43:00 Test Item Value Reference Range Interpretation Comments Creatinine Lvl (test code = Creatinine 1.10 0.50-1.40 Lvl) [facility]2022-04-11 11:43:00 Test Item Value Reference Range Interpretation Comments Sodium Lvl (test code = Sodium Lvl) 138 135-145 [facility]2022-04-11 11:43:00 Test Item Value Reference Range Interpretation Comments Potassium Lvl (test code = Potassium 4.9 3.5-5.1 Lvl) [facility]2022-04-11 11:43:00 Test Item Value Reference Range Interpretation Comments Chloride Lvl (test code = Chloride Lvl) 113 95-109 [facility]2022-04-11 11:43:00 Test Item Value Reference Range Interpretation Comments CO2 (test code = CO2) 16 24-32 [facility]2022-04-11 11:43:00 Test Item Value Reference Range Interpretation Comments AGAP (test code = AGAP) 13.9 10.0-20.0 [facility]2022-04-11 11:43:00 Test Item Value Reference Range Interpretation Comments Calcium Lvl (test code = Calcium Lvl) 9.0 8.5-10.5 [facility]2022-04-11 11:43:00 Test Item Value Reference Range Interpretation Comments eGFR (test code = eGFR) 86 [facility] HospitalCfwooruOQEAQWIOGZ7306-43-47 11:43:00 Test Item Value Reference Range Interpretation Comments WBC (test code = WBC) 10.2 3.7-10.4 [facility] HospitalLaaodotKQOJVVTVGL3531-47-57 11:43:00 Test Item Value Reference Range Interpretation Comments RBC (test code = RBC) 5.46 4.70-6.10 [facility] HospitalCtemlnbJCQELQEENG3500-29-08 11:43:00 Test Item Value Reference Range Interpretation Comments Hgb (test code = Hgb) 16.3 14.0-18.0 [facility] HospitalWhytfjzXVALKPTRGB8380-66-63 11:43:00 Test Item Value Reference Range Interpretation Comments Hct (test code = Hct) 50.0 42.0-54.0 [facility] HospitalIlbhpdqWJDOGAMODV9483-80-86 11:43:00 Test Item Value Reference Range Interpretation Comments MCV (test code = MCV) 91.4 80.0-94.0 [facility] HospitalEqrxrylJICOLEBWKU8561-80-96 11:43:00 Test Item Value Reference Range Interpretation Comments MCH (test code = MCH) 29.9 pg 27.0-31.0 [facility] HospitalAsfeaasEOZSNKXKZQ7519-14-98 11:43:00 Test Item Value Reference Range Interpretation Comments MCHC (test code = MCHC) 32.7 32.0-36.0 [facility] HospitalZwkojliWAHTSJEDQG8290-14-73 11:43:00 Test Item Value Reference Range Interpretation Comments RDW (test code = RDW) 15.7 11.5-14.5 [facility] HospitalSsazkybYPEBEAXADD5767-36-67 11:43:00 Test Item Value Reference Range Interpretation Comments Platelet (test code = Platelet) 321 133-450 [facility] HospitalOwqjngcQZILBBDUXG4299-67-98 11:43:00 Test Item Value Reference Range Interpretation Comments MPV (test code = MPV) 8.6 7.4-10.4 [facility] HospitalGarzvpjBLZBTPIIHG7510-58-56 11:43:00 Test Item Value Reference Range Interpretation Comments Segs (test code = Segs) 92.0 45.0-75.0 [facility] HospitalOhaccapWMUDPZUSOV5334-90-47 11:43:00 Test Item Value Reference Range Interpretation Comments Lymphocytes (test code = Lymphocytes) 5.2 20.0-40.0 [facility] HospitalQylvtqwILYSATWXFS3390-75-75 11:43:00 Test Item Value Reference Range Interpretation Comments Monocytes (test code = Monocytes) 1.6 2.0-12.0 [place] 357782-04-11 11:43:00 Test Item Value Reference Range Interpretation Comments Basophils (test code = 1.2 See_Comment [Aut omated message] The Basophils) system which ge nerated this result tra nsmitted reference range : <=1.0. The reference r boubacar was not used to int erpret this result as normal/abnormal . [place] 357782-04-11 11:43:00 Test Item Value Reference Range Interpretation Comments Neutrophils # (test code = Neutrophils 9.4 1.5-8.1 #) [place] 357782-04-11 11:43:00 Test Item Value Reference Range Interpretation Comments Lymphocytes # (test code = Lymphocytes 0.5 1.0-5.5 #) [place] 357782-04-11 11:43:00 Test Item Value Reference Range Interpretation Comments Monocytes # (test code 0.2 See_Comment [Aut omated message] The = Monocytes #) system which generated this result tra nsmitted reference range : <=0.8. The reference r boubacar was not used to int erpret this result as normal/abnormal . [facility] HospitalNeyljjsPZOZWSFWMP1219-24-57 11:43:00 Test Item Value Reference Range Interpretation Comments Basophils # (test code 0.1 See_Comment [Aut omated message] The = Basophils #) system which generated this result tra nsmitted reference range : <=0.2. The reference r boubacar was not used to int erpret this result as normal/abnormal . [facility]2022-04-11 11:43:00 Test Item Value Reference Range Interpretation Comments Glucose Lvl (test code = Glucose Lvl) 418 70-99 [facility]2022-04-11 11:43:00 Test Item Value Reference Range Interpretation Comments BUN (test code = BUN) 22 7-22 [place] 718872-04-11 11:43:00 Test Item Value Reference Range Interpretation Comments Creatinine Lvl (test code = Creatinine 1.10 0.50-1.40 Lvl) [facility]2022-04-11 11:43:00 Test Item Value Reference Range Interpretation Comments Sodium Lvl (test code = Sodium Lvl) 138 135-145 [place] 718872-04-11 11:43:00 Test Item Value Reference Range Interpretation Comments Potassium Lvl (test code = Potassium 4.9 3.5-5.1 Lvl) [place] 718872-04-11 11:43:00 Test Item Value Reference Range Interpretation Comments Chloride Lvl (test code = Chloride Lvl) 113 95-109 [place] 718872-04-11 11:43:00 Test Item Value Reference Range Interpretation Comments CO2 (test code = CO2) 16 24-32 [place] 718872-04-11 11:43:00 Test Item Value Reference Range Interpretation Comments AGAP (test code = AGAP) 13.9 10.0-20.0 [place] 718872-04-11 11:43:00 Test Item Value Reference Range Interpretation Comments Calcium Lvl (test code = Calcium Lvl) 9.0 8.5-10.5 [facility]2022-04-11 11:43:00 Test Item Value Reference Range Interpretation Comments eGFR (test code = eGFR) 86 [place] 357782-04-11 11:43:00 Test Item Value Reference Range Interpretation Comments WBC (test code = WBC) 10.2 3.7-10.4 [place] 357782-04-11 11:43:00 Test Item Value Reference Range Interpretation Comments RBC (test code = RBC) 5.46 4.70-6.10 [place] 357782-04-11 11:43:00 Test Item Value Reference Range Interpretation Comments Hgb (test code = Hgb) 16.3 14.0-18.0 [place] 357782-04-11 11:43:00 Test Item Value Reference Range Interpretation Comments Hct (test code = Hct) 50.0 42.0-54.0 [place] [address]-04-11 11:43:00 Test Item Value Reference Range Interpretation Comments MCV (test code = MCV) 91.4 80.0-94.0 [place] 357782-04-11 11:43:00 Test Item Value Reference Range Interpretation Comments MCH (test code = MCH) 29.9 pg 27.0-31.0 [place] 357782-04-11 11:43:00 Test Item Value Reference Range Interpretation Comments MCHC (test code = MCHC) 32.7 32.0-36.0 [facility] HospitalPgveqliCNNSJWQOVT9043-14-07 11:43:00 Test Item Value Reference Range Interpretation Comments RDW (test code = RDW) 15.7 11.5-14.5 [facility] HospitalVhbnwcuHJDBEQOMWL6005-19-91 11:43:00 Test Item Value Reference Range Interpretation Comments Platelet (test code = Platelet) 321 133-450 [facility] HospitalWxryvrgFIGHELQOAD7724-86-60 11:43:00 Test Item Value Reference Range Interpretation Comments MPV (test code = MPV) 8.6 7.4-10.4 [facility] HospitalEblevglZWDBOPKEAF5050-61-21 11:43:00 Test Item Value Reference Range Interpretation Comments Segs (test code = Segs) 92.0 45.0-75.0 [facility] HospitalYsvtouwHVUUEKSHTQ8532-55-82 11:43:00 Test Item Value Reference Range Interpretation Comments Lymphocytes (test code = Lymphocytes) 5.2 20.0-40.0 [facility] HospitalPxfaxrlJHZLYCHIQX1980-50-77 11:43:00 Test Item Value Reference Range Interpretation Comments Monocytes (test code = Monocytes) 1.6 2.0-12.0 [facility] HospitalJgqafedGMCAJBICDQ4898-61-93 11:43:00 Test Item Value Reference Range Interpretation Comments Basophils (test code = 1.2 See_Comment [Aut omated message] The Basophils) system which ge nerated this result tra nsmitted reference range : <=1.0. The reference r boubacar was not used to int erpret this result as normal/abnormal . [facility] HospitalWfznvxlJJZEBDAWGX0472-71-21 11:43:00 Test Item Value Reference Range Interpretation Comments Neutrophils # (test code = Neutrophils 9.4 1.5-8.1 #) [facility] HospitalApsizqkCXUVZPFBGW9874-55-68 11:43:00 Test Item Value Reference Range Interpretation Comments Lymphocytes # (test code = Lymphocytes 0.5 1.0-5.5 #) [facility] HospitalLhhkotmRAUPKEBLKE9790-23-98 11:43:00 Test Item Value Reference Range Interpretation Comments Monocytes # (test code 0.2 See_Comment [Aut omated message] The = Monocytes #) system which generated this result tra nsmitted reference range : <=0.8. The reference r boubacar was not used to int erpret this result as normal/abnormal . [place] 357782-04-11 11:43:00 Test Item Value Reference Range Interpretation Comments Basophils # (test code 0.1 See_Comment [Aut omated message] The = Basophils #) system which generated this result tra nsmitted reference range : <=0.2. The reference r boubacar was not used to int erpret this result as normal/abnormal . [place] 718872-04-11 11:43:00 Test Item Value Reference Range Interpretation Comments Glucose Lvl (test code = Glucose Lvl) 418 70-99 [place] 718872-04-11 11:43:00 Test Item Value Reference Range Interpretation Comments BUN (test code = BUN) 22 7-22 [place] 718872-04-11 11:43:00 Test Item Value Reference Range Interpretation Comments Creatinine Lvl (test code = Creatinine 1.10 0.50-1.40 Lvl) [facility]2022-04-11 11:43:00 Test Item Value Reference Range Interpretation Comments Sodium Lvl (test code = Sodium Lvl) 138 135-145 [facility]2022-04-11 11:43:00 Test Item Value Reference Range Interpretation Comments Potassium Lvl (test code = Potassium 4.9 3.5-5.1 Lvl) [facility]2022-04-11 11:43:00 Test Item Value Reference Range Interpretation Comments Chloride Lvl (test code = Chloride Lvl) 113 95-109 [facility]2022-04-11 11:43:00 Test Item Value Reference Range Interpretation Comments CO2 (test code = CO2) 16 24-32 [place] 718872-04-11 11:43:00 Test Item Value Reference Range Interpretation Comments AGAP (test code = AGAP) 13.9 10.0-20.0 [place] 718872-04-11 11:43:00 Test Item Value Reference Range Interpretation Comments Calcium Lvl (test code = Calcium Lvl) 9.0 8.5-10.5 [place] 718872-04-11 11:43:00 Test Item Value Reference Range Interpretation Comments eGFR (test code = eGFR) 86 [place] 357782-04-11 11:43:00 Test Item Value Reference Range Interpretation Comments WBC (test code = WBC) 10.2 3.7-10.4 [facility] HospitalBicnatgPFXRTBCRHQ9158-38-77 11:43:00 Test Item Value Reference Range Interpretation Comments RBC (test code = RBC) 5.46 4.70-6.10 [facility] HospitalKmvxjdnUYIISZGJGQ7819-80-46 11:43:00 Test Item Value Reference Range Interpretation Comments Hgb (test code = Hgb) 16.3 14.0-18.0 [facility] HospitalPigjlvzCTIALXCRDS0371-40-57 11:43:00 Test Item Value Reference Range Interpretation Comments Hct (test code = Hct) 50.0 42.0-54.0 [facility] HospitalTmduaziWAMCTJIOMG7683-45-92 11:43:00 Test Item Value Reference Range Interpretation Comments MCV (test code = MCV) 91.4 80.0-94.0 [facility] HospitalMkjcvziBPCZHLHXYS7120-53-66 11:43:00 Test Item Value Reference Range Interpretation Comments MCH (test code = MCH) 29.9 pg 27.0-31.0 [facility] HospitalLqaqvzoBZUHLALOGG7850-04-23 11:43:00 Test Item Value Reference Range Interpretation Comments MCHC (test code = MCHC) 32.7 32.0-36.0 [facility] HospitalVmvxohlNQYMDVHPYT0120-67-21 11:43:00 Test Item Value Reference Range Interpretation Comments RDW (test code = RDW) 15.7 11.5-14.5 [facility] HospitalQofookuLFLTEVWCDR0701-14-35 11:43:00 Test Item Value Reference Range Interpretation Comments Platelet (test code = Platelet) 321 133-450 [facility] HospitalZumnurcMVJASOSHWJ7565-77-37 11:43:00 Test Item Value Reference Range Interpretation Comments MPV (test code = MPV) 8.6 7.4-10.4 [facility] HospitalOyadkrrGSWDJABUBV0383-78-12 11:43:00 Test Item Value Reference Range Interpretation Comments Segs (test code = Segs) 92.0 45.0-75.0 [facility] HospitalWjfjdaaYGHWBLQWCK4970-51-15 11:43:00 Test Item Value Reference Range Interpretation Comments Lymphocytes (test code = Lymphocytes) 5.2 20.0-40.0 [facility] HospitalJldkhexZHDVRHUBGO0975-84-19 11:43:00 Test Item Value Reference Range Interpretation Comments Monocytes (test code = Monocytes) 1.6 2.0-12.0 [facility] HospitalCerfpkrCAYSVFGQTK8571-11-33 11:43:00 Test Item Value Reference Range Interpretation Comments Basophils (test code = 1.2 See_Comment [Aut omated message] The Basophils) system which ge nerated this result tra nsmitted reference range : <=1.0. The reference r boubacar was not used to int erpret this result as normal/abnormal . [place] 357782-04-11 11:43:00 Test Item Value Reference Range Interpretation Comments Neutrophils # (test code = Neutrophils 9.4 1.5-8.1 #) [place] 357782-04-11 11:43:00 Test Item Value Reference Range Interpretation Comments Lymphocytes # (test code = Lymphocytes 0.5 1.0-5.5 #) [place] 357782-04-11 11:43:00 Test Item Value Reference Range Interpretation Comments Monocytes # (test code 0.2 See_Comment [Aut omated message] The = Monocytes #) system which generated this result tra nsmitted reference range : <=0.8. The reference r boubacar was not used to int erpret this result as normal/abnormal . [place] 357782-04-11 11:43:00 Test Item Value Reference Range Interpretation Comments Basophils # (test code 0.1 See_Comment [Aut omated message] The = Basophils #) system which generated this result tra nsmitted reference range : <=0.2. The reference r boubacar was not used to int erpret this result as normal/abnormal . [facility]2022-04-11 11:43:00 Test Item Value Reference Range Interpretation Comments Glucose Lvl (test code = Glucose Lvl) 418 70-99 [place] 718872-04-11 11:43:00 Test Item Value Reference Range Interpretation Comments BUN (test code = BUN) 22 7-22 [place] 718872-04-11 11:43:00 Test Item Value Reference Range Interpretation Comments Creatinine Lvl (test code = Creatinine 1.10 0.50-1.40 Lvl) [place] 718872-04-11 11:43:00 Test Item Value Reference Range Interpretation Comments Sodium Lvl (test code = Sodium Lvl) 138 135-145 [place] 718872-04-11 11:43:00 Test Item Value Reference Range Interpretation Comments Potassium Lvl (test code = Potassium 4.9 3.5-5.1 Lvl) [facility]2022-04-11 11:43:00 Test Item Value Reference Range Interpretation Comments Chloride Lvl (test code = Chloride Lvl) 113 95-109 [facility]2022-04-11 11:43:00 Test Item Value Reference Range Interpretation Comments CO2 (test code = CO2) 16 24-32 [place] 718872-04-11 11:43:00 Test Item Value Reference Range Interpretation Comments AGAP (test code = AGAP) 13.9 10.0-20.0 [place] 718872-04-11 11:43:00 Test Item Value Reference Range Interpretation Comments Calcium Lvl (test code = Calcium Lvl) 9.0 8.5-10.5 [facility]2022-04-11 11:43:00 Test Item Value Reference Range Interpretation Comments eGFR (test code = eGFR) 86 [facility] HospitalWqbqicbKHOFMIYUZT7202-54-44 11:43:00 Test Item Value Reference Range Interpretation Comments WBC (test code = WBC) 10.2 3.7-10.4 [place] 357782-04-11 11:43:00 Test Item Value Reference Range Interpretation Comments RBC (test code = RBC) 5.46 4.70-6.10 [facility] HospitalOeawjvmHCUVZOXBHV5701-93-13 11:43:00 Test Item Value Reference Range Interpretation Comments Hgb (test code = Hgb) 16.3 14.0-18.0 [facility] HospitalRfgsxotGCVWOKTKKB5938-77-87 11:43:00 Test Item Value Reference Range Interpretation Comments Hct (test code = Hct) 50.0 42.0-54.0 [place] 357782-04-11 11:43:00 Test Item Value Reference Range Interpretation Comments MCV (test code = MCV) 91.4 80.0-94.0 [place] 357782-04-11 11:43:00 Test Item Value Reference Range Interpretation Comments MCH (test code = MCH) 29.9 pg 27.0-31.0 [place] 357782-04-11 11:43:00 Test Item Value Reference Range Interpretation Comments MCHC (test code = MCHC) 32.7 32.0-36.0 [place] 357782-04-11 11:43:00 Test Item Value Reference Range Interpretation Comments RDW (test code = RDW) 15.7 11.5-14.5 [facility] HospitalWodqeihJUPXDRXZXU7363-96-25 11:43:00 Test Item Value Reference Range Interpretation Comments Platelet (test code = Platelet) 321 133-450 [place] 357782-04-11 11:43:00 Test Item Value Reference Range Interpretation Comments MPV (test code = MPV) 8.6 7.4-10.4 [place] 357782-04-11 11:43:00 Test Item Value Reference Range Interpretation Comments Segs (test code = Segs) 92.0 45.0-75.0 [place] 357782-04-11 11:43:00 Test Item Value Reference Range Interpretation Comments Lymphocytes (test code = Lymphocytes) 5.2 20.0-40.0 [place] 357782-04-11 11:43:00 Test Item Value Reference Range Interpretation Comments Monocytes (test code = Monocytes) 1.6 2.0-12.0 [place] 357782-04-11 11:43:00 Test Item Value Reference Range Interpretation Comments Basophils (test code = 1.2 See_Comment [Aut omated message] The Basophils) system which ge nerated this result tra nsmitted reference range : <=1.0. The reference r boubacar was not used to int erpret this result as normal/abnormal . [facility] HospitalIrrrclgREEDPPCVQN8139-68-96 11:43:00 Test Item Value Reference Range Interpretation Comments Neutrophils # (test code = Neutrophils 9.4 1.5-8.1 #) [facility] HospitalHrlaajuMXGIHGPYWN2781-70-64 11:43:00 Test Item Value Reference Range Interpretation Comments Lymphocytes # (test code = Lymphocytes 0.5 1.0-5.5 #) [place] 357782-04-11 11:43:00 Test Item Value Reference Range Interpretation Comments Monocytes # (test code 0.2 See_Comment [Aut omated message] The = Monocytes #) system which generated this result tra nsmitted reference range : <=0.8. The reference r boubacar was not used to int erpret this result as normal/abnormal . [facility] HospitalTloybfwIRNOBJGQXJ4230-89-44 11:43:00 Test Item Value Reference Range Interpretation Comments Basophils # (test code 0.1 See_Comment [Aut omated message] The = Basophils #) system which generated this result tra nsmitted reference range : <=0.2. The reference r boubacar was not used to int erpret this result as normal/abnormal . [facility]2022-04-11 11:43:00 Test Item Value Reference Range Interpretation Comments Glucose Lvl (test code = Glucose Lvl) 418 70-99 [facility]2022-04-11 11:43:00 Test Item Value Reference Range Interpretation Comments BUN (test code = BUN) 22 7-22 [place] 718872-04-11 11:43:00 Test Item Value Reference Range Interpretation Comments Creatinine Lvl (test code = Creatinine 1.10 0.50-1.40 Lvl) [facility]2022-04-11 11:43:00 Test Item Value Reference Range Interpretation Comments Sodium Lvl (test code = Sodium Lvl) 138 135-145 [facility]2022-04-11 11:43:00 Test Item Value Reference Range Interpretation Comments Potassium Lvl (test code = Potassium 4.9 3.5-5.1 Lvl) [facility]2022-04-11 11:43:00 Test Item Value Reference Range Interpretation Comments Chloride Lvl (test code = Chloride Lvl) 113 95-109 [facility]2022-04-11 11:43:00 Test Item Value Reference Range Interpretation Comments CO2 (test code = CO2) 16 24-32 [facility]2022-04-11 11:43:00 Test Item Value Reference Range Interpretation Comments AGAP (test code = AGAP) 13.9 10.0-20.0 [facility]2022-04-11 11:43:00 Test Item Value Reference Range Interpretation Comments Calcium Lvl (test code = Calcium Lvl) 9.0 8.5-10.5 [facility]2022-04-11 11:43:00 Test Item Value Reference Range Interpretation Comments eGFR (test code = eGFR) 86 [place] 357782-04-11 11:43:00 Test Item Value Reference Range Interpretation Comments WBC (test code = WBC) 10.2 3.7-10.4 [place] 357782-04-11 11:43:00 Test Item Value Reference Range Interpretation Comments RBC (test code = RBC) 5.46 4.70-6.10 [facility] HospitalFzexgouTORMSNBIFB4380-36-96 11:43:00 Test Item Value Reference Range Interpretation Comments Hgb (test code = Hgb) 16.3 14.0-18.0 [facility] HospitalIuqoqxkIXMAUXSZET8407-66-64 11:43:00 Test Item Value Reference Range Interpretation Comments Hct (test code = Hct) 50.0 42.0-54.0 [facility] HospitalDmfadaiVZHMKXWNUP3804-73-74 11:43:00 Test Item Value Reference Range Interpretation Comments MCV (test code = MCV) 91.4 80.0-94.0 [facility] HospitalVuacrngEAEHOYKCNX4641-41-74 11:43:00 Test Item Value Reference Range Interpretation Comments MCH (test code = MCH) 29.9 pg 27.0-31.0 [facility] HospitalYkpisjbLILYWHKVMO7237-42-23 11:43:00 Test Item Value Reference Range Interpretation Comments MCHC (test code = MCHC) 32.7 32.0-36.0 [facility] HospitalYkhxflaKCBSJDXJAF1734-64-27 11:43:00 Test Item Value Reference Range Interpretation Comments RDW (test code = RDW) 15.7 11.5-14.5 [facility] HospitalRdijoyaMCUFFFYSUV8277-04-80 11:43:00 Test Item Value Reference Range Interpretation Comments Platelet (test code = Platelet) 321 133-450 [facility] HospitalPqrnjeoWORIYKIUYU6344-77-26 11:43:00 Test Item Value Reference Range Interpretation Comments MPV (test code = MPV) 8.6 7.4-10.4 [facility] HospitalBkzoayxDBOGTGCXUK1901-47-19 11:43:00 Test Item Value Reference Range Interpretation Comments Segs (test code = Segs) 92.0 45.0-75.0 [facility] HospitalNisazudYLCJURRTYR5301-76-86 11:43:00 Test Item Value Reference Range Interpretation Comments Lymphocytes (test code = Lymphocytes) 5.2 20.0-40.0 [facility] HospitalCszpcpeJROKPMMUHR1342-17-40 11:43:00 Test Item Value Reference Range Interpretation Comments Monocytes (test code = Monocytes) 1.6 2.0-12.0 [facility] [facility]OwjlmnbTXWPGXBRYL7242-77-40 11:43:00 Test Item Value Reference Range Interpretation Comments Basophils (test code = 1.2 See_Comment [Aut omated message] The Basophils) system which ge nerated this result tra nsmitted reference range : <=1.0. The reference r boubacar was not used to int erpret this result as normal/abnormal . [place] 357782-04-11 11:43:00 Test Item Value Reference Range Interpretation Comments Neutrophils # (test code = Neutrophils 9.4 1.5-8.1 #) [facility]LvtfluoAQNEMHSMWQ8496-86-24 11:43:00 Test Item Value Reference Range Interpretation Comments Lymphocytes # (test code = Lymphocytes 0.5 1.0-5.5 #) [place] 357782-04-11 11:43:00 Test Item Value Reference Range Interpretation Comments Monocytes # (test code 0.2 See_Comment [Aut omated message] The = Monocytes #) system which generated this result tra nsmitted reference range : <=0.8. The reference r boubacar was not used to int erpret this result as normal/abnormal . [facility] HospitalAeaqkpuNDPEFANKYX2378-62-58 11:43:00 Test Item Value Reference Range Interpretation Comments Basophils # (test code 0.1 See_Comment [Aut omated message] The = Basophils #) system which generated this result tra nsmitted reference range : <=0.2. The reference r boubacar was not used to int erpret this result as normal/abnormal . [facility]2022-04-11 11:43:00 Test Item Value Reference Range Interpretation Comments Glucose Lvl (test code = Glucose Lvl) 418 70-99 [facility]2022-04-11 11:43:00 Test Item Value Reference Range Interpretation Comments BUN (test code = BUN) 22 7-22 [place] 718872-04-11 11:43:00 Test Item Value Reference Range Interpretation Comments Creatinine Lvl (test code = Creatinine 1.10 0.50-1.40 Lvl) [place] 718872-04-11 11:43:00 Test Item Value Reference Range Interpretation Comments Sodium Lvl (test code = Sodium Lvl) 138 135-145 [place] 718872-04-11 11:43:00 Test Item Value Reference Range Interpretation Comments Potassium Lvl (test code = Potassium 4.9 3.5-5.1 Lvl) [place] 718872-04-11 11:43:00 Test Item Value Reference Range Interpretation Comments Chloride Lvl (test code = Chloride Lvl) 113 95-109 [facility]2022-04-11 11:43:00 Test Item Value Reference Range Interpretation Comments CO2 (test code = CO2) 16 24-32 [place] 718872-04-11 11:43:00 Test Item Value Reference Range Interpretation Comments AGAP (test code = AGAP) 13.9 10.0-20.0 [place] 718872-04-11 11:43:00 Test Item Value Reference Range Interpretation Comments Calcium Lvl (test code = Calcium Lvl) 9.0 8.5-10.5 [facility]2022-04-11 11:43:00 Test Item Value Reference Range Interpretation Comments eGFR (test code = eGFR) 86 [facility] HospitalWnzidssZNOVEZYFOH7189-89-03 11:43:00 Test Item Value Reference Range Interpretation Comments WBC (test code = WBC) 10.2 3.7-10.4 [place] 357782-04-11 11:43:00 Test Item Value Reference Range Interpretation Comments RBC (test code = RBC) 5.46 4.70-6.10 [place] 357782-04-11 11:43:00 Test Item Value Reference Range Interpretation Comments Hgb (test code = Hgb) 16.3 14.0-18.0 [place] 357782-04-11 11:43:00 Test Item Value Reference Range Interpretation Comments Hct (test code = Hct) 50.0 42.0-54.0 [place] [address]-04-11 11:43:00 Test Item Value Reference Range Interpretation Comments MCV (test code = MCV) 91.4 80.0-94.0 [place] [address]-04-11 11:43:00 Test Item Value Reference Range Interpretation Comments MCH (test code = MCH) 29.9 pg 27.0-31.0 [place] 357782-04-11 11:43:00 Test Item Value Reference Range Interpretation Comments MCHC (test code = MCHC) 32.7 32.0-36.0 [place] 357782-04-11 11:43:00 Test Item Value Reference Range Interpretation Comments RDW (test code = RDW) 15.7 11.5-14.5 [place] 357782-04-11 11:43:00 Test Item Value Reference Range Interpretation Comments Platelet (test code = Platelet) 321 133-450 [place] 357782-04-11 11:43:00 Test Item Value Reference Range Interpretation Comments MPV (test code = MPV) 8.6 7.4-10.4 [facility] HospitalAkpbvzaGMBZITOPJO0596-42-03 11:43:00 Test Item Value Reference Range Interpretation Comments Segs (test code = Segs) 92.0 45.0-75.0 [place] 357782-04-11 11:43:00 Test Item Value Reference Range Interpretation Comments Lymphocytes (test code = Lymphocytes) 5.2 20.0-40.0 [place] [address]-04-11 11:43:00 Test Item Value Reference Range Interpretation Comments Monocytes (test code = Monocytes) 1.6 2.0-12.0 [place] 357782-04-11 11:43:00 Test Item Value Reference Range Interpretation Comments Basophils (test code = 1.2 See_Comment [Aut omated message] The Basophils) system which ge nerated this result tra nsmitted reference range : <=1.0. The reference r boubacar was not used to int erpret this result as normal/abnormal . [facility] HospitalWlyqygsKZXXIIKZMW8343-39-02 11:43:00 Test Item Value Reference Range Interpretation Comments Neutrophils # (test code = Neutrophils 9.4 1.5-8.1 #) [place] 357782-04-11 11:43:00 Test Item Value Reference Range Interpretation Comments Lymphocytes # (test code = Lymphocytes 0.5 1.0-5.5 #) [place] 357782-04-11 11:43:00 Test Item Value Reference Range Interpretation Comments Monocytes # (test code 0.2 See_Comment [Aut omated message] The = Monocytes #) system which generated this result tra nsmitted reference range : <=0.8. The reference r boubacar was not used to int erpret this result as normal/abnormal . [place] 357782-04-11 11:43:00 Test Item Value Reference Range Interpretation Comments Basophils # (test code 0.1 See_Comment [Aut omated message] The = Basophils #) system which generated this result tra nsmitted reference range : <=0.2. The reference r boubacar was not used to int erpret this result as normal/abnormal . [facility]2022-04-11 11:43:00 Test Item Value Reference Range Interpretation Comments Glucose Lvl (test code = Glucose Lvl) 418 70-99 [place] 718872-04-11 11:43:00 Test Item Value Reference Range Interpretation Comments BUN (test code = BUN) 22 7-22 [place] 718872-04-11 11:43:00 Test Item Value Reference Range Interpretation Comments Creatinine Lvl (test code = Creatinine 1.10 0.50-1.40 Lvl) [facility]2022-04-11 11:43:00 Test Item Value Reference Range Interpretation Comments Sodium Lvl (test code = Sodium Lvl) 138 135-145 [place] 718872-04-11 11:43:00 Test Item Value Reference Range Interpretation Comments Potassium Lvl (test code = Potassium 4.9 3.5-5.1 Lvl) [facility]2022-04-11 11:43:00 Test Item Value Reference Range Interpretation Comments Chloride Lvl (test code = Chloride Lvl) 113 95-109 [facility]2022-04-11 11:43:00 Test Item Value Reference Range Interpretation Comments CO2 (test code = CO2) 16 24-32 [place] 718872-04-11 11:43:00 Test Item Value Reference Range Interpretation Comments AGAP (test code = AGAP) 13.9 10.0-20.0 [place] 718872-04-11 11:43:00 Test Item Value Reference Range Interpretation Comments Calcium Lvl (test code = Calcium Lvl) 9.0 8.5-10.5 [place] 718872-04-11 11:43:00 Test Item Value Reference Range Interpretation Comments eGFR (test code = eGFR) 86 [facility] HospitalYtgswjwNUNONYHRJS5674-52-33 11:43:00 Test Item Value Reference Range Interpretation Comments WBC (test code = WBC) 10.2 3.7-10.4 [facility] HospitalEwsdgdmVBRFHPSQEH9317-35-14 11:43:00 Test Item Value Reference Range Interpretation Comments RBC (test code = RBC) 5.46 4.70-6.10 [place] [address]-04-11 11:43:00 Test Item Value Reference Range Interpretation Comments Hgb (test code = Hgb) 16.3 14.0-18.0 [facility] HospitalMavhyfpVMNQJNAMPG8440-10-51 11:43:00 Test Item Value Reference Range Interpretation Comments Hct (test code = Hct) 50.0 42.0-54.0 [facility] HospitalSykfpktRSUDPHGDQE3117-31-84 11:43:00 Test Item Value Reference Range Interpretation Comments MCV (test code = MCV) 91.4 80.0-94.0 [facility] HospitalUohiuhiDQSQXPAZFU5098-76-78 11:43:00 Test Item Value Reference Range Interpretation Comments MCH (test code = MCH) 29.9 pg 27.0-31.0 [facility] HospitalAjrsjbfDUOKRVBGES3624-89-88 11:43:00 Test Item Value Reference Range Interpretation Comments MCHC (test code = MCHC) 32.7 32.0-36.0 [facility] HospitalXwkojpmRRJBMOPNZH9805-07-76 11:43:00 Test Item Value Reference Range Interpretation Comments RDW (test code = RDW) 15.7 11.5-14.5 [facility] HospitalBoprujqAOTLLWAMNK3947-04-21 11:43:00 Test Item Value Reference Range Interpretation Comments Platelet (test code = Platelet) 321 133-450 [facility] HospitalZfszpdmSRTJPRROGY7424-25-31 11:43:00 Test Item Value Reference Range Interpretation Comments MPV (test code = MPV) 8.6 7.4-10.4 [facility] HospitalLbnkdmfTRPDQGIOSD1914-07-59 11:43:00 Test Item Value Reference Range Interpretation Comments Segs (test code = Segs) 92.0 45.0-75.0 [facility] HospitalLnvrtxvBNMLWRMNXJ1554-96-87 11:43:00 Test Item Value Reference Range Interpretation Comments Lymphocytes (test code = Lymphocytes) 5.2 20.0-40.0 [place] 357782-04-11 11:43:00 Test Item Value Reference Range Interpretation Comments Monocytes (test code = Monocytes) 1.6 2.0-12.0 [facility] HospitalExnlskuBKSRREPADQ7921-22-43 11:43:00 Test Item Value Reference Range Interpretation Comments Basophils (test code = 1.2 See_Comment [Aut omated message] The Basophils) system which ge nerated this result tra nsmitted reference range : <=1.0. The reference r boubacar was not used to int erpret this result as normal/abnormal . [place] 357782-04-11 11:43:00 Test Item Value Reference Range Interpretation Comments Neutrophils # (test code = Neutrophils 9.4 1.5-8.1 #) [facility] HospitalUjncxtdEFCTXAAWTD3953-99-14 11:43:00 Test Item Value Reference Range Interpretation Comments Lymphocytes # (test code = Lymphocytes 0.5 1.0-5.5 #) [place] 357782-04-11 11:43:00 Test Item Value Reference Range Interpretation Comments Monocytes # (test code 0.2 See_Comment [Aut omated message] The = Monocytes #) system which generated this result tra nsmitted reference range : <=0.8. The reference r boubacar was not used to int erpret this result as normal/abnormal . [place] 357782-04-11 11:43:00 Test Item Value Reference Range Interpretation Comments Basophils # (test code 0.1 See_Comment [Aut omated message] The = Basophils #) system which generated this result tra nsmitted reference range : <=0.2. The reference r boubacar was not used to int erpret this result as normal/abnormal . [place] 676582-04-09 09:18:00 Test Item Value Reference Range Interpretation Comments Coronavirus (COVID-19) Not Detected (10/21/21 OUMOU (test code = 4:18 AM) Coronavirus (COVID-19) OUMOU) [place] [address]-04-09 09:18:00 Test Item Value Reference Range Interpretation Comments Coronavirus (COVID-19) Not Detected (10/21/21 OUMOU (test code = 4:18 AM) Coronavirus (COVID-19) OUMOU) [place] [address]-04-09 09:18:00 Test Item Value Reference Range Interpretation Comments Coronavirus (COVID-19) Not Detected (10/21/21 OUMOU (test code = 4:18 AM) Coronavirus (COVID-19) OUMOU) [place] [address]-04-09 09:18:00 Test Item Value Reference Range Interpretation Comments Coronavirus (COVID-19) Not Detected (10/21/21 OUMOU (test code = 4:18 AM) Coronavirus (COVID-19) OUMOU) [facility]mxiurbNCSFYSFUQH5010-75-32 09:18:00 Test Item Value Reference Range Interpretation Comments Coronavirus (COVID-19) Not Detected (10/21/21 OUMOU (test code = 4:18 AM) Coronavirus (COVID-19) OUMOU) [facility] BudaVnqiqmiBCSWVWJBGK5551-79-00 09:18:00 Test Item Value Reference Range Interpretation Comments Coronavirus (COVID-19) Not Detected (10/21/21 OUMOU (test code = 4:18 AM) Coronavirus (COVID-19) OUMOU) [facility] BudaIlyvtiuKEVJTJYQZP7981-01-37 09:18:00 Test Item Value Reference Range Interpretation Comments Coronavirus (COVID-19) Not Detected (10/21/21 OUMOU (test code = 4:18 AM) Coronavirus (COVID-19) OUMOU) [facility]SUSC:PT:ISOLATE:ORDQN:[id number] 08:19:00 Test Item Value Reference Range Interpretation Comments Culture: Urine (test >100,000 CFU/mL code = Culture: Providencia stuartii Urine) [facility]landAXONE:SUSC:PT:ISOLATE:ORDQN:[id number] 08:19:00 Test Item Value Reference Range Interpretation Comments Providencia stuartii Providencia stuartii (test code = Providencia stuartii) [facility] AND [id number] 08:19:00 Test Item Value Reference Range Interpretation Comments UA Color (test code = Yellow *NA*(10/21/21 3:19 UA Color) AM) [facility] [id number] 08:19:00 Test Item Value Reference Range Interpretation Comments UA Turbidity (test code Marked *ABN*(10/21/21 = UA Turbidity) 3:19 AM) [facility] [id number] 08:19:00 Test Item Value Reference Range Interpretation Comments UA Spec Grav (test code = UA Spec 1.013 1 Grav) [facility] [id number] 08:19:00 Test Item Value Reference Range Interpretation Comments UA pH (test code = UA pH) 5.0 1 5.0-8.0 [facility] [id number] 08:19:00 Test Item Value Reference Range Interpretation Comments UA Protein (test code = UA Negative mg/dL Protein) [facility] AND [id number] 08:19:00 Test Item Value Reference Range Interpretation Comments UA Glucose (test code = UA Negative mg/dL Glucose) [facility] AND [id number] 08:19:00 Test Item Value Reference Range Interpretation Comments UA Ketones (test code = UA Negative mg/dL Ketones) [facility] AND [id number] 08:19:00 Test Item Value Reference Range Interpretation Comments UA Bili (test code = Negative *NA*(10/21/21 UA Bili) 3:19 AM) [facility] AND [id number] 08:19:00 Test Item Value Reference Range Interpretation Comments UA Blood (test code = Small *ABN*(10/21/21 UA Blood) 3:19 AM) [facility] AND [id number] 08:19:00 Test Item Value Reference Range Interpretation Comments UA Urobilinogen (test code = UA no gt 0.1-1.0 Urobilinogen) [facility] AND [id number] 08:19:00 Test Item Value Reference Range Interpretation Comments UA Nitrite (test code Positive *ABN*(10/21/21 = UA Nitrite) 3:19 AM) [facility] AND [id number] 08:19:00 Test Item Value Reference Range Interpretation Comments UA Leuk Est (test code Large *ABN*(10/21/21 3:19 = UA Leuk Est) AM) [facility] AND [id number] 08:19:00 Test Item Value Reference Range Interpretation Comments UA WBC (test code = no gt See_Comment [Automa lester message] The UA WBC) system which ge nerated this result transmit lester reference range : <=5. The reference range was not used to interpr et this result as dany l/abnormal. [facility] AND [id number] 08:19:00 Test Item Value Reference Range Interpretation Comments UA RBC (test code = 8 See_Comment [Automa lester message] The UA RBC) system which ge nerated this result transmit lester reference range : <=2. The reference range was not used to interpr et this result as dany l/abnormal. [facility] [id number] 08:19:00 Test Item Value Reference Range Interpretation Comments UA Bacteria (test code = UA Occasional /HPF Bacteria) [facility] [id number] 08:19:00 Test Item Value Reference Range Interpretation Comments UA Mucus (test code = UA Mucus) Few /LPF [facility] [id number] 08:19:00 Test Item Value Reference Range Interpretation Comments UA Amorph Chritsi (test code = Occasional /HPF UA Amorph Christi) [facility] [id number] 08:19:00 Test Item Value Reference Range Interpretation Comments UA Sq Epi (test code = UA Sq Epi) None [facility]en [facility]Culture: [id number] 08:19:00 Test Item Value Reference Range Interpretation Comments Culture: Urine (test Holding For Better code = Culture: Urine) [facility]anCEFTRIAXONE:SUSC:PT:ISOLATE:ORDQN:[id number] 08:19:00 Test Item Value Reference Range Interpretation Comments Culture: Urine (test >100,000 CFU/mL code = Culture: Providencia stuartii Urine) [facility]inteannCEFTRIAXONE:SUSC:PT:ISOLATE:ORDQN:[id number] 08:19:00 Test Item Value Reference Range Interpretation Comments Providencia stuartii Providencia stuartii (test code = Providencia stuartii) [facility] [id number] 08:19:00 Test Item Value Reference Range Interpretation Comments UA Color (test code = Yellow *NA*(10/21/21 3:19 UA Color) AM) [facility] [id number] 08:19:00 Test Item Value Reference Range Interpretation Comments UA Turbidity (test code Marked *ABN*(10/21/21 = UA Turbidity) 3:19 AM) [facility] [id number] 08:19:00 Test Item Value Reference Range Interpretation Comments UA Spec Grav (test code = UA Spec 1.013 1 Grav) [facility] [id number] 08:19:00 Test Item Value Reference Range Interpretation Comments UA pH (test code = UA pH) 5.0 1 5.0-8.0 [facility] AND [id number] 08:19:00 Test Item Value Reference Range Interpretation Comments UA Protein (test code = UA Negative mg/dL Protein) [facility] AND [id number] 08:19:00 Test Item Value Reference Range Interpretation Comments UA Glucose (test code = UA Negative mg/dL Glucose) [facility] AND [id number] 08:19:00 Test Item Value Reference Range Interpretation Comments UA Ketones (test code = UA Negative mg/dL Ketones) [facility] AND [id number] 08:19:00 Test Item Value Reference Range Interpretation Comments UA Bili (test code = Negative *NA*(10/21/21 UA Bili) 3:19 AM) [facility] AND [id number] 08:19:00 Test Item Value Reference Range Interpretation Comments UA Blood (test code = Small *ABN*(10/21/21 UA Blood) 3:19 AM) [facility] AND [id number] 08:19:00 Test Item Value Reference Range Interpretation Comments UA Urobilinogen (test code = UA no gt 0.1-1.0 Urobilinogen) [facility] AND [id number] 08:19:00 Test Item Value Reference Range Interpretation Comments UA Nitrite (test code Positive *ABN*(10/21/21 = UA Nitrite) 3:19 AM) [facility] AND [id number] 08:19:00 Test Item Value Reference Range Interpretation Comments UA Leuk Est (test code Large *ABN*(10/21/21 3:19 = UA Leuk Est) AM) [facility] AND [id number] 08:19:00 Test Item Value Reference Range Interpretation Comments UA WBC (test code = no gt See_Comment [Automa lester message] The UA WBC) system which ge nerated this result transmit lester reference range : <=5. The reference range was not used to interpr et this result as dany l/abnormal. [facility] AND [id number] 08:19:00 Test Item Value Reference Range Interpretation Comments UA RBC (test code = 8 See_Comment [Automa lester message] The UA RBC) system which ge nerated this result transmit lesetr reference range : <=2. The reference range was not used to interpr et this result as dany l/abnormal. [facility] [id number] 08:19:00 Test Item Value Reference Range Interpretation Comments UA Bacteria (test code = UA Occasional /HPF Bacteria) [facility] [id number] 08:19:00 Test Item Value Reference Range Interpretation Comments UA Mucus (test code = UA Mucus) Few /LPF [facility] [id number] 08:19:00 Test Item Value Reference Range Interpretation Comments UA Amorph Christi (test code = Occasional /HPF UA Amorph Christi) [facility] [id number] 08:19:00 Test Item Value Reference Range Interpretation Comments UA Sq Epi (test code = UA Sq Epi) None [facility]en [facility]Culture: [id number] 08:19:00 Test Item Value Reference Range Interpretation Comments Culture: Urine (test Holding For Better code = Culture: Urine) [facility] HospitalElyseFTRIAXONE:SUSC:PT:ISOLATE:ORDQN:[id number] 08:19:00 Test Item Value Reference Range Interpretation Comments Culture: Urine (test >100,000 CFU/mL code = Culture: Providencia stuartii Urine) [facility] ValdezFTRIAXONE:SUSC:PT:ISOLATE:ORDQN:[id number] 08:19:00 Test Item Value Reference Range Interpretation Comments Providencia stuartii Providencia stuartii (test code = Providencia stuartii) [facility] [id number] 08:19:00 Test Item Value Reference Range Interpretation Comments UA Color (test code = Yellow *NA*(10/21/21 3:19 UA Color) AM) [facility] [id number] 08:19:00 Test Item Value Reference Range Interpretation Comments UA Turbidity (test code Marked *ABN*(10/21/21 = UA Turbidity) 3:19 AM) [facility] [id number] 08:19:00 Test Item Value Reference Range Interpretation Comments UA Spec Grav (test code = UA Spec 1.013 1 Grav) [facility] [id number] 08:19:00 Test Item Value Reference Range Interpretation Comments UA pH (test code = UA pH) 5.0 1 5.0-8.0 [facility] AND [id number] 08:19:00 Test Item Value Reference Range Interpretation Comments UA Protein (test code = UA Negative mg/dL Protein) [facility] AND [id number] 08:19:00 Test Item Value Reference Range Interpretation Comments UA Glucose (test code = UA Negative mg/dL Glucose) [facility] AND [id number] 08:19:00 Test Item Value Reference Range Interpretation Comments UA Ketones (test code = UA Negative mg/dL Ketones) [facility] AND [id number] 08:19:00 Test Item Value Reference Range Interpretation Comments UA Bili (test code = Negative *NA*(10/21/21 UA Bili) 3:19 AM) [facility] AND [id number] 08:19:00 Test Item Value Reference Range Interpretation Comments UA Blood (test code = Small *ABN*(10/21/21 UA Blood) 3:19 AM) [facility] AND [id number] 08:19:00 Test Item Value Reference Range Interpretation Comments UA Urobilinogen (test code = UA no gt 0.1-1.0 Urobilinogen) [facility] AND [id number] 08:19:00 Test Item Value Reference Range Interpretation Comments UA Nitrite (test code Positive *ABN*(10/21/21 = UA Nitrite) 3:19 AM) [facility] AND [id number] 08:19:00 Test Item Value Reference Range Interpretation Comments UA Leuk Est (test code Large *ABN*(10/21/21 3:19 = UA Leuk Est) AM) [facility] AND [id number] 08:19:00 Test Item Value Reference Range Interpretation Comments UA WBC (test code = no gt See_Comment [Automa lester message] The UA WBC) system which ge nerated this result transmit lester reference range : <=5. The reference range was not used to interpr et this result as dany l/abnormal. [facility] AND [id number] 08:19:00 Test Item Value Reference Range Interpretation Comments UA RBC (test code = 8 See_Comment [Automa lester message] The UA RBC) system which ge nerated this result transmit lester reference range : <=2. The reference range was not used to interpr et this result as dany l/abnormal. [facility] [id number] 08:19:00 Test Item Value Reference Range Interpretation Comments UA Bacteria (test code = UA Occasional /HPF Bacteria) [facility] [id number] 08:19:00 Test Item Value Reference Range Interpretation Comments UA Mucus (test code = UA Mucus) Few /LPF [facility] [id number] 08:19:00 Test Item Value Reference Range Interpretation Comments UA Amorph Christi (test code = Occasional /HPF UA Amorph Christi) [facility] [id number] 08:19:00 Test Item Value Reference Range Interpretation Comments UA Sq Epi (test code = UA Sq Epi) None [facility]en [facility]: [id number] 08:19:00 Test Item Value Reference Range Interpretation Comments Culture: Urine (test Holding For Better code = Culture: Urine) [facility] ValdezFTRIAXONE:SUSC:PT:ISOLATE:ORDQN:[id number] 08:19:00 Test Item Value Reference Range Interpretation Comments Culture: Urine (test >100,000 CFU/mL code = Culture: Providencia stuartii Urine) [facility]dezFTRIAXONE:SUSC:PT:ISOLATE:ORDQN:[id number] 08:19:00 Test Item Value Reference Range Interpretation Comments Providencia stuartii Providencia stuartii (test code = Providencia stuartii) [facility] [id number] 08:19:00 Test Item Value Reference Range Interpretation Comments UA Color (test code = Yellow *NA*(10/21/21 3:19 UA Color) AM) [facility] [id number] 08:19:00 Test Item Value Reference Range Interpretation Comments UA Turbidity (test code Marked *ABN*(10/21/21 = UA Turbidity) 3:19 AM) [facility] [id number] 08:19:00 Test Item Value Reference Range Interpretation Comments UA Spec Grav (test code = UA Spec 1.013 1 Grav) [facility] [id number] 08:19:00 Test Item Value Reference Range Interpretation Comments UA pH (test code = UA pH) 5.0 1 5.0-8.0 [facility] AND [id number] 08:19:00 Test Item Value Reference Range Interpretation Comments UA Protein (test code = UA Negative mg/dL Protein) [facility] AND [id number] 08:19:00 Test Item Value Reference Range Interpretation Comments UA Glucose (test code = UA Negative mg/dL Glucose) [facility] AND [id number] 08:19:00 Test Item Value Reference Range Interpretation Comments UA Ketones (test code = UA Negative mg/dL Ketones) [facility] AND [id number] 08:19:00 Test Item Value Reference Range Interpretation Comments UA Bili (test code = Negative *NA*(10/21/21 UA Bili) 3:19 AM) [facility] AND [id number] 08:19:00 Test Item Value Reference Range Interpretation Comments UA Blood (test code = Small *ABN*(10/21/21 UA Blood) 3:19 AM) [facility] AND [id number] 08:19:00 Test Item Value Reference Range Interpretation Comments UA Urobilinogen (test code = UA no gt 0.1-1.0 Urobilinogen) [facility] AND [id number] 08:19:00 Test Item Value Reference Range Interpretation Comments UA Nitrite (test code Positive *ABN*(10/21/21 = UA Nitrite) 3:19 AM) [facility] AND [id number] 08:19:00 Test Item Value Reference Range Interpretation Comments UA Leuk Est (test code Large *ABN*(10/21/21 3:19 = UA Leuk Est) AM) [facility] AND [id number] 08:19:00 Test Item Value Reference Range Interpretation Comments UA WBC (test code = no gt See_Comment [Automa lester message] The UA WBC) system which ge nerated this result transmit lester reference range : <=5. The reference range was not used to interpr et this result as dany l/abnormal. [facility] AND [id number] 08:19:00 Test Item Value Reference Range Interpretation Comments UA RBC (test code = 8 See_Comment [Automa lester message] The UA RBC) system which ge nerated this result transmit lester reference range : <=2. The reference range was not used to interpr et this result as dany l/abnormal. [facility] AND [id number] 08:19:00 Test Item Value Reference Range Interpretation Comments UA Bacteria (test code = UA Occasional /HPF Bacteria) Love RubyAXONE:SUSC:PT:ISOLATE:ORDQN:[id number] 08:19:00 Test Item Value Reference Range Interpretation Comments Culture: Urine (test >100,000 CFU/mL code = Culture: Providencia stuartii Urine) Love RubyAXONE:SUSC:PT:ISOLATE:ORDQN:[id number] 08:19:00 Test Item Value Reference Range Interpretation Comments Providencia stuartii Providencia stuartii (test code = Providencia stuartii) [facility] AND [id number] 08:19:00 Test Item Value Reference Range Interpretation Comments UA Color (test code = Yellow *NA*(10/21/21 3:19 UA Color) AM) [facility] AND [id number] 08:19:00 Test Item Value Reference Range Interpretation Comments UA Turbidity (test code Marked *ABN*(10/21/21 = UA Turbidity) 3:19 AM) [facility] AND [id number] 08:19:00 Test Item Value Reference Range Interpretation Comments UA Spec Grav (test code = UA Spec 1.013 1 Grav) [facility] AND [id number] 08:19:00 Test Item Value Reference Range Interpretation Comments UA pH (test code = UA pH) 5.0 1 5.0-8.0 [facility] AND [id number] 08:19:00 Test Item Value Reference Range Interpretation Comments UA Protein (test code = UA Negative mg/dL Protein) [facility] AND [id number] 08:19:00 Test Item Value Reference Range Interpretation Comments UA Glucose (test code = UA Negative mg/dL Glucose) [facility] AND [id number] 08:19:00 Test Item Value Reference Range Interpretation Comments UA Mucus (test code = UA Mucus) Few /LPF [facility] [id number] 08:19:00 Test Item Value Reference Range Interpretation Comments UA Ketones (test code = UA Negative mg/dL Ketones) [facility] [id number] 08:19:00 Test Item Value Reference Range Interpretation Comments UA Bili (test code = Negative *NA*(10/21/21 UA Bili) 3:19 AM) [facility] [id number] 08:19:00 Test Item Value Reference Range Interpretation Comments UA Blood (test code = Small *ABN*(10/21/21 UA Blood) 3:19 AM) [facility] AND [id number] 08:19:00 Test Item Value Reference Range Interpretation Comments UA Urobilinogen (test code = UA no gt 0.1-1.0 Urobilinogen) [facility] AND [id number] 08:19:00 Test Item Value Reference Range Interpretation Comments UA Nitrite (test code Positive *ABN*(10/21/21 = UA Nitrite) 3:19 AM) [facility] AND [id number] 08:19:00 Test Item Value Reference Range Interpretation Comments UA Leuk Est (test code Large *ABN*(10/21/21 3:19 = UA Leuk Est) AM) [facility] AND [id number] 08:19:00 Test Item Value Reference Range Interpretation Comments UA WBC (test code = no gt See_Comment [Automa lester message] The UA WBC) system which ge nerated this result transmit lester reference range : <=5. The reference range was not used to interpr et this result as dany l/abnormal. [facility] [id number] 08:19:00 Test Item Value Reference Range Interpretation Comments UA RBC (test code = 8 See_Comment [Automa lester message] The UA RBC) system which ge nerated this result transmit lester reference range : <=2. The reference range was not used to interpr et this result as dany l/abnormal. [facility] [id number] 08:19:00 Test Item Value Reference Range Interpretation Comments UA Bacteria (test code = UA Occasional /HPF Bacteria) [facility] [id number] 08:19:00 Test Item Value Reference Range Interpretation Comments UA Mucus (test code = UA Mucus) Few /LPF [facility] [id number] 08:19:00 Test Item Value Reference Range Interpretation Comments UA Amorph Christi (test code = Occasional /HPF UA Amorph Christi) [facility] [id number] 08:19:00 Test Item Value Reference Range Interpretation Comments UA Amorph Christi (test code = Occasional /HPF UA Amorph Christi) [facility] [id number] 08:19:00 Test Item Value Reference Range Interpretation Comments UA Sq Epi (test code = UA Sq Epi) None Seen [facility]: [id number] 08:19:00 Test Item Value Reference Range Interpretation Comments Culture: Urine (test Holding For Better code = Culture: Urine) Growth [facility] [id number] 08:19:00 Test Item Value Reference Range Interpretation Comments UA Sq Epi (test code = UA Sq Epi) None Seen [facility]annCulture: [id number] 08:19:00 Test Item Value Reference Range Interpretation Comments Culture: Urine (test Holding For Better code = Culture: Urine) Growth [facility]annCEFTRIAXONE:SUSC:PT:ISOLATE:ORDQN:[id number] 08:19:00 Test Item Value Reference Range Interpretation Comments Culture: Urine (test >100,000 CFU/mL code = Culture: Providencia stuartii Urine) [facility]annCEFTRIAXONE:SUSC:PT:ISOLATE:ORDQN:[id number] 08:19:00 Test Item Value Reference Range Interpretation Comments Providencia stuartii Providencia stuartii (test code = Providencia stuartii) [facility] [id number] 08:19:00 Test Item Value Reference Range Interpretation Comments UA Color (test code = Yellow *NA*(10/21/21 3:19 UA Color) AM) [facility] [id number] 08:19:00 Test Item Value Reference Range Interpretation Comments UA Turbidity (test code Marked *ABN*(10/21/21 = UA Turbidity) 3:19 AM) [facility] [id number] 08:19:00 Test Item Value Reference Range Interpretation Comments UA Spec Grav (test code = UA Spec 1.013 1 Grav) [facility] AND [id number] 08:19:00 Test Item Value Reference Range Interpretation Comments UA pH (test code = UA pH) 5.0 1 5.0-8.0 [facility] AND [id number] 08:19:00 Test Item Value Reference Range Interpretation Comments UA Protein (test code = UA Negative mg/dL Protein) [facility] AND [id number] 08:19:00 Test Item Value Reference Range Interpretation Comments UA Glucose (test code = UA Negative mg/dL Glucose) [facility] AND [id number] 08:19:00 Test Item Value Reference Range Interpretation Comments UA Ketones (test code = UA Negative mg/dL Ketones) [facility] AND [id number] 08:19:00 Test Item Value Reference Range Interpretation Comments UA Bili (test code = Negative *NA*(10/21/21 UA Bili) 3:19 AM) [facility] AND [id number] 08:19:00 Test Item Value Reference Range Interpretation Comments UA Blood (test code = Small *ABN*(10/21/21 UA Blood) 3:19 AM) [facility] AND [id number] 08:19:00 Test Item Value Reference Range Interpretation Comments UA Urobilinogen (test code = UA no gt 0.1-1.0 Urobilinogen) [facility] AND [id number] 08:19:00 Test Item Value Reference Range Interpretation Comments UA Nitrite (test code Positive *ABN*(10/21/21 = UA Nitrite) 3:19 AM) [facility] AND [id number] 08:19:00 Test Item Value Reference Range Interpretation Comments UA Leuk Est (test code Large *ABN*(10/21/21 3:19 = UA Leuk Est) AM) [facility] AND [id number] 08:19:00 Test Item Value Reference Range Interpretation Comments UA WBC (test code = no gt See_Comment [Automa lester message] The UA WBC) system which ge nerated this result transmit lester reference range : <=5. The reference range was not used to interpr et this result as dany l/abnormal. [facility] [id number] 08:19:00 Test Item Value Reference Range Interpretation Comments UA RBC (test code = 8 See_Comment [Automa lester message] The UA RBC) system which ge nerated this result transmit lester reference range : <=2. The reference range was not used to interpr et this result as dany l/abnormal. [facility] [id number] 08:19:00 Test Item Value Reference Range Interpretation Comments UA Bacteria (test code = UA Occasional /HPF Bacteria) [facility] [id number] 08:19:00 Test Item Value Reference Range Interpretation Comments UA Mucus (test code = UA Mucus) Few /LPF [facility] [id number] 08:19:00 Test Item Value Reference Range Interpretation Comments UA Amorph Christi (test code = Occasional /HPF UA Amorph Christi) [facility] AND [id number] 08:19:00 Test Item Value Reference Range Interpretation Comments UA Sq Epi (test code = UA Sq Epi) None Seen [facility]Culture: [id number] 08:19:00 Test Item Value Reference Range Interpretation Comments Culture: Urine (test Holding For Better code = Culture: Urine) Growth [facility] PointephilipPIERRERIAXONE:SUSC:PT:ISOLATE:ORDQN:[id number] 08:19:00 Test Item Value Reference Range Interpretation Comments Culture: Urine (test >100,000 CFU/mL code = Culture: Providencia stuartii Urine) [facility] JasonCHANDAFTRIAXONE:SUSC:PT:ISOLATE:ORDQN:[id number] 08:19:00 Test Item Value Reference Range Interpretation Comments Providencia stuartii Providencia stuartii (test code = Providencia stuartii) [facility] [id number] 08:19:00 Test Item Value Reference Range Interpretation Comments UA Color (test code = Yellow *NA*(10/21/21 3:19 UA Color) AM) [facility] [id number] 08:19:00 Test Item Value Reference Range Interpretation Comments UA Turbidity (test code Marked *ABN*(10/21/21 = UA Turbidity) 3:19 AM) [facility] AND [id number] 08:19:00 Test Item Value Reference Range Interpretation Comments UA Spec Grav (test code = UA Spec 1.013 1 Grav) [facility] AND [id number] 08:19:00 Test Item Value Reference Range Interpretation Comments UA pH (test code = UA pH) 5.0 1 5.0-8.0 [facility] AND [id number] 08:19:00 Test Item Value Reference Range Interpretation Comments UA Protein (test code = UA Negative mg/dL Protein) [facility] AND [id number] 08:19:00 Test Item Value Reference Range Interpretation Comments UA Glucose (test code = UA Negative mg/dL Glucose) [facility] AND [id number] 08:19:00 Test Item Value Reference Range Interpretation Comments UA Ketones (test code = UA Negative mg/dL Ketones) [facility] AND [id number] 08:19:00 Test Item Value Reference Range Interpretation Comments UA Bili (test code = Negative *NA*(10/21/21 UA Bili) 3:19 AM) [facility] AND [id number] 08:19:00 Test Item Value Reference Range Interpretation Comments UA Blood (test code = Small *ABN*(10/21/21 UA Blood) 3:19 AM) [facility] AND [id number] 08:19:00 Test Item Value Reference Range Interpretation Comments UA Urobilinogen (test code = UA no gt 0.1-1.0 Urobilinogen) [facility] AND [id number] 08:19:00 Test Item Value Reference Range Interpretation Comments UA Nitrite (test code Positive *ABN*(10/21/21 = UA Nitrite) 3:19 AM) [facility] AND [id number] 08:19:00 Test Item Value Reference Range Interpretation Comments UA Leuk Est (test code Large *ABN*(10/21/21 3:19 = UA Leuk Est) AM) [facility] AND [id number] 08:19:00 Test Item Value Reference Range Interpretation Comments UA WBC (test code = no gt See_Comment [Automa lester message] The UA WBC) system which ge nerated this result transmit lester reference range : <=5. The reference range was not used to interpr et this result as dany l/abnormal. [facility] [id number] 08:19:00 Test Item Value Reference Range Interpretation Comments UA RBC (test code = 8 See_Comment [Automa lester message] The UA RBC) system which ge nerated this result transmit lester reference range : <=2. The reference range was not used to interpr et this result as dany l/abnormal. [facility] [id number] 08:19:00 Test Item Value Reference Range Interpretation Comments UA Bacteria (test code = UA Occasional /HPF Bacteria) [facility] AND [id number] 08:19:00 Test Item Value Reference Range Interpretation Comments UA Mucus (test code = UA Mucus) Few /LPF [facility] AND [id number] 08:19:00 Test Item Value Reference Range Interpretation Comments UA Amorph Christi (test code = Occasional /HPF UA Amorph Christi) [facility] AND [id number] 08:19:00 Test Item Value Reference Range Interpretation Comments UA Sq Epi (test code = UA Sq Epi) None Seen [facility]inteannCulture: [id number] 08:19:00 Test Item Value Reference Range Interpretation Comments Culture: Urine (test Holding For Better code = Culture: Urine) Growth [facility] [id number] 00:20:00 Test Item Value Reference Range Interpretation Comments INR (test code = INR) 1.00 1 0.85-1.17 [facility]FguwgxxSYGHLDJDTZ0657-50-[facility] 00:20:00 Test Item Value Reference Range Interpretation Comments PTT (test code = PTT) 31.5 s 22.9-35.8 [facility] BrookHuikusmPZSOWQEDXE7920-03-24 00:20:00 Test Item Value Reference Range Interpretation Comments Segs (test code = Segs) 68.7 45.0-75.0 [facility] BrookBvtrwigDQJQNQUBFQ8632-17-53 00:20:00 Test Item Value Reference Range Interpretation Comments Lymphocytes (test code = Lymphocytes) 19.6 20.0-40.0 [facility] BrookXvsklvkMFRLXVZZHO7769-66-20 00:20:00 Test Item Value Reference Range Interpretation Comments Monocytes (test code = Monocytes) 9.4 2.0-12.0 [id number] 00:20:00 Test Item Value Reference Range Interpretation Comments Eosinophils (test code = 1.4 See_Comment [A utomated message] The Eosinophils) system which ge nerated this result tra nsmitted reference range : <=4.0. The reference r boubacar was not used to int erpret this result as normal/abnormal . [facility] HospitalWzvqtqiZVMMJPBLNF7925-07-13 00:20:00 Test Item Value Reference Range Interpretation Comments Basophils (test code = 0.9 See_Comment [Aut omated message] The Basophils) system which ge nerated this result tra nsmitted reference range : <=1.0. The reference r boubacar was not used to int erpret this result as normal/abnormal . [facility] HospitalQajzoozVBEFYMXQDJ8038-71-89 00:20:00 Test Item Value Reference Range Interpretation Comments Neutrophils # (test code = Neutrophils 6.9 1.5-8.1 #) [facility] HospitalFraoxfeQMCRAWQFPU8857-49-21 00:20:00 Test Item Value Reference Range Interpretation Comments Lymphocytes # (test code = Lymphocytes 2.0 1.0-5.5 #) [facility] HospitalCzsxqnzTGDHDHSIFB3881-76-92 00:20:00 Test Item Value Reference Range Interpretation Comments Monocytes # (test code 1.0 See_Comment [Aut omated message] The = Monocytes #) system which generated this result tra nsmitted reference range : <=0.8. The reference r boubacar was not used to int erpret this result as normal/abnormal . [facility] HospitalBwnjnjtMIDDXERGZC8509-30-31 00:20:00 Test Item Value Reference Range Interpretation Comments Eosinophils # (test code 0.1 See_Comment [A utomated message] The = Eosinophils #) system whic h generated this result tra nsmitted reference range : <=0.5. The reference r boubacar was not used to int erpret this result as normal/abnormal . [facility] HospitalUdljeznZHREAMDSGT5012-96-77 00:20:00 Test Item Value Reference Range Interpretation Comments Basophils # (test code 0.1 See_Comment [Aut omated message] The = Basophils #) system which generated this result tra nsmitted reference range : <=0.2. The reference r boubacar was not used to int erpret this result as normal/abnormal . [facility] Bro[id number] 00:20:00 Test Item Value Reference Range Interpretation Comments C-REACTIVE PROTEIN (test code = 13.2 C-REACTIVE PROTEIN) [facility]intePern[facility] [id number] 00:20:00 Test Item Value Reference Range Interpretation Comments ABO/Rh (test code = ABO/Rh) AB POS [facility] PointeCelebCallsShopEx [facility] [id number] 00:20:00 Test Item Value Reference Range Interpretation Comments Antibody Scrn (test Negative (10/20/21 7:20 code = Antibody Scrn) PM) [facility]inteAud[facility] [id number] 00:20:00 Test Item Value Reference Range Interpretation Comments Glucose Lvl (test code = Glucose Lvl) 74 70-99 [facility] Imindi [id number] 00:20:00 Test Item Value Reference Range Interpretation Comments BUN (test code = BUN) 15 -22 [facility]inte[facility] [id number] 00:20:00 Test Item Value Reference Range Interpretation Comments Creatinine Lvl (test code = Creatinine 0.61 0.50-1.40 Lvl) [facility] [id number] 00:20:00 Test Item Value Reference Range Interpretation Comments Sodium Lvl (test code = Sodium Lvl) 139 135-145 [facility] [id number] 00:20:00 Test Item Value Reference Range Interpretation Comments Potassium Lvl (test code = Potassium 4.9 3.5-5.1 Lvl) [facility]inte[facility] [id number] 00:20:00 Test Item Value Reference Range Interpretation Comments Chloride Lvl (test code = Chloride Lvl) 105 95-109 [facility] [id number] 00:20:00 Test Item Value Reference Range Interpretation Comments CO2 (test code = CO2) 30 24-32 [facility]inte[facility] [id number] 00:20:00 Test Item Value Reference Range Interpretation Comments Calcium Lvl (test code = Calcium Lvl) 9.5 8.5-10.5 [facility] [id number] 00:20:00 Test Item Value Reference Range Interpretation Comments AGAP (test code = AGAP) 8.9 10.0-20.0 [facility] [id number] 00:20:00 Test Item Value Reference Range Interpretation Comments eGFR (test code = eGFR) 129 [facility] [id number] 00:20:00 Test Item Value Reference Range Interpretation Comments Lactic Acid Lvl (test code = Lactic 1.2 0.5-2.2 Acid Lvl) [facility] [id number] 00:20:00 Test Item Value Reference Range Interpretation Comments Procalcitonin Lvl (test 0.09 See_Comment [Au tomated message] code = Procalcitonin Lvl) Th e system which generated this result transmitted ref erence range: <=0.10. The reference range was not used to interpr et this result as normal/abnormal . [facility] HospitalFcdyniiZOZUISYZGX6502-06-30 00:20:00 Test Item Value Reference Range Interpretation Comments WBC (test code = WBC) 10.1 3.7-10.4 [facility] HospitalPmfnmbeHRGESBXIBM4689-15-65 00:20:00 Test Item Value Reference Range Interpretation Comments RBC (test code = RBC) 5.14 4.70-6.10 [facility] HospitalFvfqditAIXZNSOIRQ9482-85-16 00:20:00 Test Item Value Reference Range Interpretation Comments Hgb (test code = Hgb) 15.5 14.0-18.0 [facility] HospitalExhzokqUPPDFCOWUZ2960-04-71 00:20:00 Test Item Value Reference Range Interpretation Comments Hct (test code = Hct) 46.5 42.0-54.0 [facility] HospitalCxtzjtgYEBJOKVOWZ5086-73-43 00:20:00 Test Item Value Reference Range Interpretation Comments MCV (test code = MCV) 90.5 80.0-94.0 [facility] HospitalIpdlgjaVMWSEPIFOW8371-01-84 00:20:00 Test Item Value Reference Range Interpretation Comments MCH (test code = MCH) 30.1 pg 27.0-31.0 [facility] HospitalVdgdhzvBBEWMBSFUC4194-94-32 00:20:00 Test Item Value Reference Range Interpretation Comments MCHC (test code = MCHC) 33.3 32.0-36.0 [facility] HospitalNzklwimSCMMADYXNQ3078-05-97 00:20:00 Test Item Value Reference Range Interpretation Comments RDW (test code = RDW) 15.7 11.5-14.5 [facility] HospitalKepbtwcUXXLFTDVVU1087-54-73 00:20:00 Test Item Value Reference Range Interpretation Comments Platelet (test code = Platelet) 302 133-450 [place] 357782-04-09 00:20:00 Test Item Value Reference Range Interpretation Comments MPV (test code = MPV) 8.9 7.4-10.4 [place] 17853-04-09 00:20:00 Test Item Value Reference Range Interpretation Comments Sed Rate (test code = 17 See_Comment [Auto mated message] The Sed Rate) system which ge nerated this result transmit lester reference range : <=15. The reference range was not used to interpr et this result as dany l/abnormal. [facility] HospitalEmsojyoYSJTNNOYDY4330-47-54 00:20:00 Test Item Value Reference Range Interpretation Comments PT (test code = PT) 13.1 s 12.0-14.7 [place] [id number] 00:20:00 Test Item Value Reference Range Interpretation Comments INR (test code = INR) 1.00 1 0.85-1.17 [place] 357782-04-09 00:20:00 Test Item Value Reference Range Interpretation Comments PTT (test code = PTT) 31.5 s 22.9-35.8 [place] 357782-04-09 00:20:00 Test Item Value Reference Range Interpretation Comments Segs (test code = Segs) 68.7 45.0-75.0 [place] 357782-04-09 00:20:00 Test Item Value Reference Range Interpretation Comments Lymphocytes (test code = Lymphocytes) 19.6 20.0-40.0 [place] 357782-04-09 00:20:00 Test Item Value Reference Range Interpretation Comments Monocytes (test code = Monocytes) 9.4 2.0-12.0 [place] [address]-04-09 00:20:00 Test Item Value Reference Range Interpretation Comments Eosinophils (test code = 1.4 See_Comment [A utomated message] The Eosinophils) system which ge nerated this result tra nsmitted reference range : <=4.0. The reference r boubacar was not used to int erpret this result as normal/abnormal . [place] 357782-04-09 00:20:00 Test Item Value Reference Range Interpretation Comments Basophils (test code = 0.9 See_Comment [Aut omated message] The Basophils) system which ge nerated this result tra nsmitted reference range : <=1.0. The reference r boubacar was not used to int erpret this result as normal/abnormal . [facility]oxYZNWOQRMXR9420-01-73 00:20:00 Test Item Value Reference Range Interpretation Comments Neutrophils # (test code = Neutrophils 6.9 1.5-8.1 #) [facility] HospitalLjarlqmHYTJKYFGLM7046-26-54 00:20:00 Test Item Value Reference Range Interpretation Comments Lymphocytes # (test code = Lymphocytes 2.0 1.0-5.5 #) [facility] HospitalDpapqsxQMZVFWGZUR0453-71-46 00:20:00 Test Item Value Reference Range Interpretation Comments Monocytes # (test code 1.0 See_Comment [Aut omated message] The = Monocytes #) system which generated this result tra nsmitted reference range : <=0.8. The reference r boubacar was not used to int erpret this result as normal/abnormal . [facility] HospitalOxhqarpOLHULHXHBZ9168-28-33 00:20:00 Test Item Value Reference Range Interpretation Comments Eosinophils # (test code 0.1 See_Comment [A utomated message] The = Eosinophils #) system whic h generated this result tra nsmitted reference range : <=0.5. The reference r boubacar was not used to int erpret this result as normal/abnormal . [facility] HospitalCnqvttgTELIKDRTIR6043-23-43 00:20:00 Test Item Value Reference Range Interpretation Comments Basophils # (test code 0.1 See_Comment [Aut omated message] The = Basophils #) system which generated this result tra nsmitted reference range : <=0.2. The reference r boubacar was not used to int erpret this result as normal/abnormal . [facility]FK[facility]NWAL[facility]29[facility]48 [facility]:20:00 Test Item Value Reference Range Interpretation Comments C-REACTIVE PROTEIN (test code = 13.2 C-REACTIVE PROTEIN) [facility] AGRXOUE1056-64-01 00:20:00 Test Item Value Reference Range Interpretation Comments ABO/Rh (test code = ABO/Rh) AB POS [facility]Internet [employer] B[employer] [id number] 00:20:00 Test Item Value Reference Range Interpretation Comments Antibody Scrn (test Negative (10/20/21 7:20 code = Antibody Scrn) PM) [facility] [id number] 00:20:00 Test Item Value Reference Range Interpretation Comments Glucose Lvl (test code = Glucose Lvl) 74 70-99 [place] 718872-04-09 00:20:00 Test Item Value Reference Range Interpretation Comments BUN (test code = BUN) 15 7-22 [place] 718872-04-09 00:20:00 Test Item Value Reference Range Interpretation Comments Creatinine Lvl (test code = Creatinine 0.61 0.50-1.40 Lvl) [place] 718872-04-09 00:20:00 Test Item Value Reference Range Interpretation Comments Sodium Lvl (test code = Sodium Lvl) 139 135-145 [place] 718872-04-09 00:20:00 Test Item Value Reference Range Interpretation Comments Potassium Lvl (test code = Potassium 4.9 3.5-5.1 Lvl) [place] 718872-04-09 00:20:00 Test Item Value Reference Range Interpretation Comments Chloride Lvl (test code = Chloride Lvl) 105 95-109 [place] 718872-04-09 00:20:00 Test Item Value Reference Range Interpretation Comments CO2 (test code = CO2) 30 24-32 [place] 718872-04-09 00:20:00 Test Item Value Reference Range Interpretation Comments Calcium Lvl (test code = Calcium Lvl) 9.5 8.5-10.5 [facility]2022-04-09 00:20:00 Test Item Value Reference Range Interpretation Comments AGAP (test code = AGAP) 8.9 10.0-20.0 [place] 718872-04-09 00:20:00 Test Item Value Reference Range Interpretation Comments eGFR (test code = eGFR) 129 [place] 718872-04-09 00:20:00 Test Item Value Reference Range Interpretation Comments Lactic Acid Lvl (test code = Lactic 1.2 0.5-2.2 Acid Lvl) [place] 718872-04-09 00:20:00 Test Item Value Reference Range Interpretation Comments Procalcitonin Lvl (test 0.09 See_Comment [Au tomated message] code = Procalcitonin Lvl) e system which generated this result transmitted ref erence range: <=0.10. The reference range was not used to interpr et this result as normal/abnormal . [facility] HospitalJjgibvtSQDZSOGEZP7151-94-32 00:20:00 Test Item Value Reference Range Interpretation Comments WBC (test code = WBC) 10.1 3.7-10.4 [place] 357782-04-09 00:20:00 Test Item Value Reference Range Interpretation Comments RBC (test code = RBC) 5.14 4.70-6.10 [place] 357782-04-09 00:20:00 Test Item Value Reference Range Interpretation Comments Hgb (test code = Hgb) 15.5 14.0-18.0 [place] [address]-04-09 00:20:00 Test Item Value Reference Range Interpretation Comments Hct (test code = Hct) 46.5 42.0-54.0 [place] 357782-04-09 00:20:00 Test Item Value Reference Range Interpretation Comments MCV (test code = MCV) 90.5 80.0-94.0 [place] 357782-04-09 00:20:00 Test Item Value Reference Range Interpretation Comments MCH (test code = MCH) 30.1 pg 27.0-31.0 [place] [address]-04-09 00:20:00 Test Item Value Reference Range Interpretation Comments MCHC (test code = MCHC) 33.3 32.0-36.0 [facility] HospitalWyddvjaLPMZJSTSLQ8713-70-68 00:20:00 Test Item Value Reference Range Interpretation Comments RDW (test code = RDW) 15.7 11.5-14.5 [place] 357782-04-09 00:20:00 Test Item Value Reference Range Interpretation Comments Platelet (test code = Platelet) 302 133-450 [facility] HospitalSlvqqogFVMHSXHEYM9382-42-63 00:20:00 Test Item Value Reference Range Interpretation Comments MPV (test code = MPV) 8.9 7.4-10.4 [place] [address]-04-09 00:20:00 Test Item Value Reference Range Interpretation Comments Sed Rate (test code = 17 See_Comment [Auto mated message] The Sed Rate) system which ge nerated this result transmit lester reference range : <=15. The reference range was not used to interpr et this result as dany l/abnormal. [place] 357782-04-09 00:20:00 Test Item Value Reference Range Interpretation Comments PT (test code = PT) 13.1 s 12.0-14.7 [facility] HospitalBhnlkthJWKKUDNRTI5813-66-71 00:20:00 Test Item Value Reference Range Interpretation Comments INR (test code = INR) 1.00 1 0.85-1.17 [place] 357782-04-09 00:20:00 Test Item Value Reference Range Interpretation Comments PTT (test code = PTT) 31.5 s 22.9-35.8 [facility] HospitalUyupawmRAROFGPZPP6693-21-18 00:20:00 Test Item Value Reference Range Interpretation Comments Segs (test code = Segs) 68.7 45.0-75.0 [facility] HospitalQzalemeUUSFOEGDRI2624-34-44 00:20:00 Test Item Value Reference Range Interpretation Comments Lymphocytes (test code = Lymphocytes) 19.6 20.0-40.0 [facility] HospitalHubhrkyIKZIKRDKXP0810-84-23 00:20:00 Test Item Value Reference Range Interpretation Comments Monocytes (test code = Monocytes) 9.4 2.0-12.0 [facility] HospitalSkdtxjbXHFWVOIRGG9080-87-19 00:20:00 Test Item Value Reference Range Interpretation Comments Eosinophils (test code = 1.4 See_Comment [A utomated message] The Eosinophils) system which ge nerated this result tra nsmitted reference range : <=4.0. The reference r boubacar was not used to int erpret this result as normal/abnormal . [facility] HospitalVqkjnihMSUZTYBJBE4825-25-55 00:20:00 Test Item Value Reference Range Interpretation Comments Basophils (test code = 0.9 See_Comment [Aut omated message] The Basophils) system which ge nerated this result tra nsmitted reference range : <=1.0. The reference r boubacar was not used to int erpret this result as normal/abnormal . [facility] HospitalDsfmwzhEFNLQUVJKY4023-06-53 00:20:00 Test Item Value Reference Range Interpretation Comments Neutrophils # (test code = Neutrophils 6.9 1.5-8.1 #) [facility] HospitalIhpvhylQDPQNAIJMO8737-94-31 00:20:00 Test Item Value Reference Range Interpretation Comments Lymphocytes # (test code = Lymphocytes 2.0 1.0-5.5 #) [facility] HospitalQujpoqiVVRFKVDDNC3290-28-08 00:20:00 Test Item Value Reference Range Interpretation Comments Monocytes # (test code 1.0 See_Comment [Aut omated message] The = Monocytes #) system which generated this result tra nsmitted reference range : <=0.8. The reference r boubacar was not used to int erpret this result as normal/abnormal . [facility]inteVjftmebTMOZUYTPER1433-73-64 00:20:00 Test Item Value Reference Range Interpretation Comments Eosinophils # (test code 0.1 See_Comment [A utomated message] The = Eosinophils #) system whic h generated this result tra nsmitted reference range : <=0.5. The reference r boubacar was not used to int erpret this result as normal/abnormal . [facility] PointeEyoattcZWEUXGNFCQ9119-31-59 00:20:00 Test Item Value Reference Range Interpretation Comments Basophils # (test code 0.1 See_Comment [Aut omated message] The = Basophils #) system which generated this result tra nsmitted reference range : <=0.2. The reference r boubacar was not used to int erpret this result as normal/abnormal . [facility] LudonzaSRZGHXDJUR9226-88-63 00:20:00 Test Item Value Reference Range Interpretation Comments C-REACTIVE PROTEIN (test code = 13.2 C-REACTIVE PROTEIN) [facility] [employer] [id number] 00:20:00 Test Item Value Reference Range Interpretation Comments ABO/Rh (test code = ABO/Rh) AB POS [facility] [employer] [id number] 00:20:00 Test Item Value Reference Range Interpretation Comments Antibody Scrn (test Negative (10/20/21 7:20 code = Antibody Scrn) PM) [facility] [employer]2022-04-09 00:20:00 Test Item Value Reference Range Interpretation Comments Glucose Lvl (test code = Glucose Lvl) 74 70-99 [facility] [employer]2022-04-09 00:20:00 Test Item Value Reference Range Interpretation Comments BUN (test code = BUN) 15 7-22 [facility] [employer]2022-04-09 00:20:00 Test Item Value Reference Range Interpretation Comments Creatinine Lvl (test code = Creatinine 0.61 0.50-1.40 Lvl) [facility] [employer]2022-04-09 00:20:00 Test Item Value Reference Range Interpretation Comments Sodium Lvl (test code = Sodium Lvl) 139 135-145 [place] 718872-04-09 00:20:00 Test Item Value Reference Range Interpretation Comments Potassium Lvl (test code = Potassium 4.9 3.5-5.1 Lvl) [place] 718872-04-09 00:20:00 Test Item Value Reference Range Interpretation Comments Chloride Lvl (test code = Chloride Lvl) 105 95-109 [place] 718872-04-09 00:20:00 Test Item Value Reference Range Interpretation Comments CO2 (test code = CO2) 30 24-32 [place] 718872-04-09 00:20:00 Test Item Value Reference Range Interpretation Comments Calcium Lvl (test code = Calcium Lvl) 9.5 8.5-10.5 [place] 718872-04-09 00:20:00 Test Item Value Reference Range Interpretation Comments AGAP (test code = AGAP) 8.9 10.0-20.0 [place] 718872-04-09 00:20:00 Test Item Value Reference Range Interpretation Comments eGFR (test code = eGFR) 129 [place] 718872-04-09 00:20:00 Test Item Value Reference Range Interpretation Comments Lactic Acid Lvl (test code = Lactic 1.2 0.5-2.2 Acid Lvl) [place] 718872-04-09 00:20:00 Test Item Value Reference Range Interpretation Comments Procalcitonin Lvl (test 0.09 See_Comment [Au tomated message] code = Procalcitonin Lvl) e system which generated this result transmitted ref erence range: <=0.10. The reference range was not used to interpr et this result as normal/abnormal . [facility] HospitalHqujsbySAWSHIVKEI6208-98-99 00:20:00 Test Item Value Reference Range Interpretation Comments WBC (test code = WBC) 10.1 3.7-10.4 [place] [address]-04-09 00:20:00 Test Item Value Reference Range Interpretation Comments RBC (test code = RBC) 5.14 4.70-6.10 [place] [address]-04-09 00:20:00 Test Item Value Reference Range Interpretation Comments Hgb (test code = Hgb) 15.5 14.0-18.0 [place] [address]-04-09 00:20:00 Test Item Value Reference Range Interpretation Comments Hct (test code = Hct) 46.5 42.0-54.0 [facility] HospitalHfurcguXPUFJKQSVU2682-41-73 00:20:00 Test Item Value Reference Range Interpretation Comments MCV (test code = MCV) 90.5 80.0-94.0 [facility] HospitalSlpquojVTQNLVTIKE7388-31-65 00:20:00 Test Item Value Reference Range Interpretation Comments MCH (test code = MCH) 30.1 pg 27.0-31.0 [facility] HospitalBubnllmCDJWIOXBWH3777-46-67 00:20:00 Test Item Value Reference Range Interpretation Comments MCHC (test code = MCHC) 33.3 32.0-36.0 [facility] HospitalTlguvdjTQEBVQPXIC0015-78-37 00:20:00 Test Item Value Reference Range Interpretation Comments RDW (test code = RDW) 15.7 11.5-14.5 [facility] HospitalNlbjypzDFMUVRNTXA5904-59-04 00:20:00 Test Item Value Reference Range Interpretation Comments Platelet (test code = Platelet) 302 133-450 [facility] HospitalFkcbkbwJPIEOLBEJA4442-63-58 00:20:00 Test Item Value Reference Range Interpretation Comments MPV (test code = MPV) 8.9 7.4-10.4 [facility] HospitalPufjqsrENVVAUNJYX2930-07-03 00:20:00 Test Item Value Reference Range Interpretation Comments Sed Rate (test code = 17 See_Comment [Auto mated message] The Sed Rate) system which ge nerated this result transmit lester reference range : <=15. The reference range was not used to interpr et this result as dany l/abnormal. [facility] HospitalXkofcjgSQWDCWRRLD8686-55-59 00:20:00 Test Item Value Reference Range Interpretation Comments PT (test code = PT) 13.1 s 12.0-14.7 [facility] HospitalZsldokiVVKTMBFXLM5738-22-19 00:20:00 Test Item Value Reference Range Interpretation Comments INR (test code = INR) 1.00 1 0.85-1.17 [facility] HospitalJhgxyybOIVKHEAKDD7272-03-10 00:20:00 Test Item Value Reference Range Interpretation Comments PTT (test code = PTT) 31.5 s 22.9-35.8 [facility] HospitalGgroabyMIUHMWIYQA6173-29-72 00:20:00 Test Item Value Reference Range Interpretation Comments Segs (test code = Segs) 68.7 45.0-75.0 [facility] HospitalIiahnfaSVHDKHSSOU6196-09-04 00:20:00 Test Item Value Reference Range Interpretation Comments Lymphocytes (test code = Lymphocytes) 19.6 20.0-40.0 [facility] HospitalGkcjvzjPJCTGIOPJD1643-82-53 00:20:00 Test Item Value Reference Range Interpretation Comments Monocytes (test code = Monocytes) 9.4 2.0-12.0 [facility] HospitalHabahdrNIOULQVDZM1244-45-14 00:20:00 Test Item Value Reference Range Interpretation Comments Eosinophils (test code = 1.4 See_Comment [A utomated message] The Eosinophils) system which ge nerated this result tra nsmitted reference range : <=4.0. The reference r boubacar was not used to int erpret this result as normal/abnormal . [facility] HospitalXfmlikiOYTQFPYYVV8724-12-24 00:20:00 Test Item Value Reference Range Interpretation Comments Basophils (test code = 0.9 See_Comment [Aut omated message] The Basophils) system which ge nerated this result tra nsmitted reference range : <=1.0. The reference r boubacar was not used to int erpret this result as normal/abnormal . [facility] HospitalHqizsbrVQZTDZRFSP6866-60-76 00:20:00 Test Item Value Reference Range Interpretation Comments Neutrophils # (test code = Neutrophils 6.9 1.5-8.1 #) [facility] HospitalZvgxmedQMAENSHVSB0817-40-12 00:20:00 Test Item Value Reference Range Interpretation Comments Lymphocytes # (test code = Lymphocytes 2.0 1.0-5.5 #) [place] 357782-04-09 00:20:00 Test Item Value Reference Range Interpretation Comments Monocytes # (test code 1.0 See_Comment [Aut omated message] The = Monocytes #) system which generated this result tra nsmitted reference range : <=0.8. The reference r boubacar was not used to int erpret this result as normal/abnormal . [facility] HospitalSbeickgHCUXAXADTE1957-56-26 00:20:00 Test Item Value Reference Range Interpretation Comments Eosinophils # (test code 0.1 See_Comment [A utomated message] The = Eosinophils #) system ic h generated this result tra nsmitted reference range : <=0.5. The reference r bouabcar was not used to int erpret this result as normal/abnormal . [facility] PduqzroYQWXFCNQIM5900-58-48 00:20:00 Test Item Value Reference Range Interpretation Comments Basophils # (test code 0.1 See_Comment [Aut omated message] The = Basophils #) system which generated this result tra nsmitted reference range : <=0.2. The reference r boubacar was not used to int erpret this result as normal/abnormal . [facility] AftrdcpUEGWNCHTOA7033-48-95 00:20:00 Test Item Value Reference Range Interpretation Comments C-REACTIVE PROTEIN (test code = 13.2 C-REACTIVE PROTEIN) [facility] [employer] VFMOESP3517-44-94 00:20:00 Test Item Value Reference Range Interpretation Comments ABO/Rh (test code = ABO/Rh) AB POS [facility] [employer] [id number] 00:20:00 Test Item Value Reference Range Interpretation Comments Antibody Scrn (test Negative (10/20/21 7:20 code = Antibody Scrn) PM) [facility] [employer]2022-04-09 00:20:00 Test Item Value Reference Range Interpretation Comments Glucose Lvl (test code = Glucose Lvl) 74 70-99 [facility] [employer]2022-04-09 00:20:00 Test Item Value Reference Range Interpretation Comments BUN (test code = BUN) 15 7-22 [place]2022-04-09 00:20:00 Test Item Value Reference Range Interpretation Comments Creatinine Lvl (test code = Creatinine 0.61 0.50-1.40 Lvl) [facility]2022-04-09 00:20:00 Test Item Value Reference Range Interpretation Comments Sodium Lvl (test code = Sodium Lvl) 139 135-145 [facility] [employer]2022-04-09 00:20:00 Test Item Value Reference Range Interpretation Comments Potassium Lvl (test code = Potassium 4.9 3.5-5.1 Lvl) [facility]2022-04-09 00:20:00 Test Item Value Reference Range Interpretation Comments Chloride Lvl (test code = Chloride Lvl) 105 95-109 [facility]2022-04-09 00:20:00 Test Item Value Reference Range Interpretation Comments CO2 (test code = CO2) 30 24-32 [facility]2022-04-09 00:20:00 Test Item Value Reference Range Interpretation Comments Calcium Lvl (test code = Calcium Lvl) 9.5 8.5-10.5 [facility]2022-04-09 00:20:00 Test Item Value Reference Range Interpretation Comments AGAP (test code = AGAP) 8.9 10.0-20.0 [place] 718872-04-09 00:20:00 Test Item Value Reference Range Interpretation Comments eGFR (test code = eGFR) 129 [facility]2022-04-09 00:20:00 Test Item Value Reference Range Interpretation Comments Lactic Acid Lvl (test code = Lactic 1.2 0.5-2.2 Acid Lvl) [facility]2022-04-09 00:20:00 Test Item Value Reference Range Interpretation Comments Procalcitonin Lvl (test 0.09 See_Comment [Au tomated message] code = Procalcitonin Lvl) e system which generated this result transmitted ref erence range: <=0.10. The reference range was not used to interpr et this result as normal/abnormal . [facility] HospitalMnvnlsbBXIZTAALRH8207-93-81 00:20:00 Test Item Value Reference Range Interpretation Comments WBC (test code = WBC) 10.1 3.7-10.4 [place] 357782-04-09 00:20:00 Test Item Value Reference Range Interpretation Comments RBC (test code = RBC) 5.14 4.70-6.10 [place] 357782-04-09 00:20:00 Test Item Value Reference Range Interpretation Comments Hgb (test code = Hgb) 15.5 14.0-18.0 [place] [address]-04-09 00:20:00 Test Item Value Reference Range Interpretation Comments Hct (test code = Hct) 46.5 42.0-54.0 [place] 357782-04-09 00:20:00 Test Item Value Reference Range Interpretation Comments MCV (test code = MCV) 90.5 80.0-94.0 [place] 357782-04-09 00:20:00 Test Item Value Reference Range Interpretation Comments MCH (test code = MCH) 30.1 pg 27.0-31.0 [place] 357782-04-09 00:20:00 Test Item Value Reference Range Interpretation Comments MCHC (test code = MCHC) 33.3 32.0-36.0 [facility] HospitalFafyfskKCRUOIOURY6901-84-38 00:20:00 Test Item Value Reference Range Interpretation Comments RDW (test code = RDW) 15.7 11.5-14.5 [facility] HospitalWaohnxxVSDBTOSOYU8782-56-66 00:20:00 Test Item Value Reference Range Interpretation Comments Platelet (test code = Platelet) 302 133-450 [facility] HospitalFrfjlcpKRCZMIMWDU1537-02-00 00:20:00 Test Item Value Reference Range Interpretation Comments MPV (test code = MPV) 8.9 7.4-10.4 [facility] HospitalTbolvujKVFUCHOZAD1246-97-59 00:20:00 Test Item Value Reference Range Interpretation Comments Sed Rate (test code = 17 See_Comment [Auto mated message] The Sed Rate) system which ge nerated this result transmit lester reference range : <=15. The reference range was not used to interpr et this result as dany l/abnormal. [facility] HospitalDkrcjzbNKENAKCMQO7613-56-12 00:20:00 Test Item Value Reference Range Interpretation Comments PT (test code = PT) 13.1 s 12.0-14.7 [facility] HospitalHwjfmzoQAPGFTIXNM1079-85-36 00:20:00 Test Item Value Reference Range Interpretation Comments INR (test code = INR) 1.00 1 0.85-1.17 [facility] TDVKZSG8940-82-18 00:20:00 Test Item Value Reference Range Interpretation Comments ABO/Rh (test code = ABO/Rh) AB POS [facility] HospitalNfzugvxVPSKJESSBP2279-85-98 00:20:00 Test Item Value Reference Range Interpretation Comments PTT (test code = PTT) 31.5 s 22.9-35.8 [facility] HospitalHmwzzmsIHOFAUOMFR4394-52-32 00:20:00 Test Item Value Reference Range Interpretation Comments Segs (test code = Segs) 68.7 45.0-75.0 [facility] HospitalYfjpqvcAQUPBDGLHV6717-21-93 00:20:00 Test Item Value Reference Range Interpretation Comments Lymphocytes (test code = Lymphocytes) 19.6 20.0-40.0 [facility] HospitalYvfuqeaMRRHEIDVND8740-36-51 00:20:00 Test Item Value Reference Range Interpretation Comments Monocytes (test code = Monocytes) 9.4 2.0-12.0 [facility] HospitalEkxijqdGCTYSFQWUI0788-65-99 00:20:00 Test Item Value Reference Range Interpretation Comments Eosinophils (test code = 1.4 See_Comment [A utomated message] The Eosinophils) system which ge nerated this result tra nsmitted reference range : <=4.0. The reference r boubacar was not used to int erpret this result as normal/abnormal . [facility] HospitalVdymdrcEVLACNONEY8716-96-30 00:20:00 Test Item Value Reference Range Interpretation Comments Basophils (test code = 0.9 See_Comment [Aut omated message] The Basophils) system which ge nerated this result tra nsmitted reference range : <=1.0. The reference r boubacar was not used to int erpret this result as normal/abnormal . [facility] HospitalUbiserdJMOVLXVPPQ6248-06-93 00:20:00 Test Item Value Reference Range Interpretation Comments Neutrophils # (test code = Neutrophils 6.9 1.5-8.1 #) [facility] HospitalAhhxiydCBURJRSVYE0208-57-92 00:20:00 Test Item Value Reference Range Interpretation Comments Lymphocytes # (test code = Lymphocytes 2.0 1.0-5.5 #) [facility] HospitalRgqbkilWNFZMKWBXE1344-37-36 00:20:00 Test Item Value Reference Range Interpretation Comments Monocytes # (test code 1.0 See_Comment [Aut omated message] The = Monocytes #) system which generated this result tra nsmitted reference range : <=0.8. The reference r boubacar was not used to int erpret this result as normal/abnormal . [facility] HospitalLpfhsqxHWFPRFVXOG6154-71-46 00:20:00 Test Item Value Reference Range Interpretation Comments Eosinophils # (test code 0.1 See_Comment [A utomated message] The = Eosinophils #) system whic h generated this result tra nsmitted reference range : <=0.5. The reference r boubacar was not used to int erpret this result as normal/abnormal . [facility] YPJTWTS4631-44-33 00:20:00 Test Item Value Reference Range Interpretation Comments Antibody Scrn (test Negative (10/20/21 7:20 code = Antibody Scrn) PM) [facility] HospitalUpmisfmJGYLTVQKRL3029-39-54 00:20:00 Test Item Value Reference Range Interpretation Comments Basophils # (test code 0.1 See_Comment [Aut omated message] The = Basophils #) system which generated this result tra nsmitted reference range : <=0.2. The reference r boubacar was not used to int erpret this result as normal/abnormal . [facility]67[facility]53 [facility]:20:00 Test Item Value Reference Range Interpretation Comments C-REACTIVE PROTEIN (test code = 13.2 C-REACTIVE PROTEIN) [facility]2022-04-09 00:20:00 Test Item Value Reference Range Interpretation Comments Glucose Lvl (test code = Glucose Lvl) 74 70-99 [place] 718872-04-09 00:20:00 Test Item Value Reference Range Interpretation Comments BUN (test code = BUN) 15 7-22 [place] 718872-04-09 00:20:00 Test Item Value Reference Range Interpretation Comments Creatinine Lvl (test code = Creatinine 0.61 0.50-1.40 Lvl) [facility]2022-04-09 00:20:00 Test Item Value Reference Range Interpretation Comments Sodium Lvl (test code = Sodium Lvl) 139 135-145 [place] 718872-04-09 00:20:00 Test Item Value Reference Range Interpretation Comments Potassium Lvl (test code = Potassium 4.9 3.5-5.1 Lvl) [facility]2022-04-09 00:20:00 Test Item Value Reference Range Interpretation Comments Chloride Lvl (test code = Chloride Lvl) 105 95-109 [place] 718872-04-09 00:20:00 Test Item Value Reference Range Interpretation Comments CO2 (test code = CO2) 30 24-32 [place] 718872-04-09 00:20:00 Test Item Value Reference Range Interpretation Comments Calcium Lvl (test code = Calcium Lvl) 9.5 8.5-10.5 [place] 718872-04-09 00:20:00 Test Item Value Reference Range Interpretation Comments AGAP (test code = AGAP) 8.9 10.0-20.0 [place] 718872-04-09 00:20:00 Test Item Value Reference Range Interpretation Comments eGFR (test code = eGFR) 129 [place] 718872-04-09 00:20:00 Test Item Value Reference Range Interpretation Comments Lactic Acid Lvl (test code = Lactic 1.2 0.5-2.2 Acid Lvl) [facility]2022-04-09 00:20:00 Test Item Value Reference Range Interpretation Comments Procalcitonin Lvl (test 0.09 See_Comment [Au tomated message] code = Procalcitonin Lvl) e system which generated this result transmitted ref erence range: <=0.10. The reference range was not used to interpr et this result as normal/abnormal . [facility]zphefNNPCGMLYHZ5438[facility]57-68 [facility]:20:00 Test Item Value Reference Range Interpretation Comments WBC (test code = WBC) 10.1 3.7-10.4 [facility] HospitalZxvpsshOZIZYDAYRX4339-45-88 00:20:00 Test Item Value Reference Range Interpretation Comments RBC (test code = RBC) 5.14 4.70-6.10 [facility] HospitalRjubcguKIKHCHMIMJ5705-47-44 00:20:00 Test Item Value Reference Range Interpretation Comments Hgb (test code = Hgb) 15.5 14.0-18.0 [facility] HospitalHmgombzZRFAHLEJSV0852-34-42 00:20:00 Test Item Value Reference Range Interpretation Comments Hct (test code = Hct) 46.5 42.0-54.0 [facility] HospitalQsslcytHIOGVOZMSD0905-47-61 00:20:00 Test Item Value Reference Range Interpretation Comments MCV (test code = MCV) 90.5 80.0-94.0 [facility] HospitalSdwbpwqLSDITQFXTV1842-54-51 00:20:00 Test Item Value Reference Range Interpretation Comments MCH (test code = MCH) 30.1 pg 27.0-31.0 [facility] HospitalMzkjdfoRMKNQKGYVX4217-91-35 00:20:00 Test Item Value Reference Range Interpretation Comments MCHC (test code = MCHC) 33.3 32.0-36.0 [place] 357782-04-09 00:20:00 Test Item Value Reference Range Interpretation Comments RDW (test code = RDW) 15.7 11.5-14.5 [facility] HospitalRoqiysdGFBUYTWXUK6261-39-89 00:20:00 Test Item Value Reference Range Interpretation Comments Platelet (test code = Platelet) 302 133-450 [facility] HospitalZsipyukLOCGQBLFSW9376-24-34 00:20:00 Test Item Value Reference Range Interpretation Comments MPV (test code = MPV) 8.9 7.4-10.4 [place] 357782-04-09 00:20:00 Test Item Value Reference Range Interpretation Comments Sed Rate (test code = 17 See_Comment [Auto mated message] The Sed Rate) system which ge nerated this result transmit lester reference range : <=15. The reference range was not used to interpr et this result as dany l/abnormal. [facility] HospitalFbavtlyZSTYTFKVXX0089-60-21 00:20:00 Test Item Value Reference Range Interpretation Comments PT (test code = PT) 13.1 s 12.0-14.7 [facility] HospitalBvoegupGSEKHXUERT0223-53-58 00:20:00 Test Item Value Reference Range Interpretation Comments INR (test code = INR) 1.00 1 0.85-1.17 [facility] HospitalOozytfqMULKNUWQJG4272-13-58 00:20:00 Test Item Value Reference Range Interpretation Comments PTT (test code = PTT) 31.5 s 22.9-35.8 [place] 357782-04-09 00:20:00 Test Item Value Reference Range Interpretation Comments Segs (test code = Segs) 68.7 45.0-75.0 [place] 357782-04-09 00:20:00 Test Item Value Reference Range Interpretation Comments Lymphocytes (test code = Lymphocytes) 19.6 20.0-40.0 [facility] HospitalTywtilwKBCBPFJMDC7532-41-20 00:20:00 Test Item Value Reference Range Interpretation Comments Monocytes (test code = Monocytes) 9.4 2.0-12.0 [place] 357782-04-09 00:20:00 Test Item Value Reference Range Interpretation Comments Eosinophils (test code = 1.4 See_Comment [A utomated message] The Eosinophils) system which ge nerated this result tra nsmitted reference range : <=4.0. The reference r boubacar was not used to int erpret this result as normal/abnormal . [place] 357782-04-09 00:20:00 Test Item Value Reference Range Interpretation Comments Basophils (test code = 0.9 See_Comment [Aut omated message] The Basophils) system which ge nerated this result tra nsmitted reference range : <=1.0. The reference r boubacar was not used to int erpret this result as normal/abnormal . [place] 357782-04-09 00:20:00 Test Item Value Reference Range Interpretation Comments Neutrophils # (test code = Neutrophils 6.9 1.5-8.1 #) [facility]VcqpkngHUZVNOBYBT2783-73-13 00:20:00 Test Item Value Reference Range Interpretation Comments Lymphocytes # (test code = Lymphocytes 2.0 1.0-5.5 #) [facility] HospitalAsnnpdyOLFLTOAHRA6978-95-41 00:20:00 Test Item Value Reference Range Interpretation Comments Monocytes # (test code 1.0 See_Comment [Aut omated message] The = Monocytes #) system which generated this result tra nsmitted reference range : <=0.8. The reference r boubacar was not used to int erpret this result as normal/abnormal . [facility] BrookCpushzkGKRIVFPTOJ4966-35-52 00:20:00 Test Item Value Reference Range Interpretation Comments Eosinophils # (test code 0.1 See_Comment [A utomated message] The = Eosinophils #) system whic h generated this result tra nsmitted reference range : <=0.5. The reference r boubacar was not used to int erpret this result as normal/abnormal . [facility] BrookOysspaaOREICPGMAY2058-17-90 00:20:00 Test Item Value Reference Range Interpretation Comments Basophils # (test code 0.1 See_Comment [Aut omated message] The = Basophils #) system which generated this result tra nsmitted reference range : <=0.2. The reference r boubacar was not used to int erpret this result as normal/abnormal . [facility] BrookWfsmzfpPOQPBQRRJH3427-59-76 00:20:00 Test Item Value Reference Range Interpretation Comments C-REACTIVE PROTEIN (test code = 13.2 C-REACTIVE PROTEIN) [facility] [employer] [id number] 00:20:00 Test Item Value Reference Range Interpretation Comments ABO/Rh (test code = ABO/Rh) AB POS [facility] [employer] [id number] 00:20:00 Test Item Value Reference Range Interpretation Comments Antibody Scrn (test Negative (10/20/21 7:20 code = Antibody Scrn) PM) [facility] [employer] [id number] 00:20:00 Test Item Value Reference Range Interpretation Comments Glucose Lvl (test code = Glucose Lvl) 74 70-99 [facility] [employer]2022-04-09 00:20:00 Test Item Value Reference Range Interpretation Comments BUN (test code = BUN) 15 7-22 [facility]2022-04-09 00:20:00 Test Item Value Reference Range Interpretation Comments Creatinine Lvl (test code = Creatinine 0.61 0.50-1.40 Lvl) [facility]2022-04-09 00:20:00 Test Item Value Reference Range Interpretation Comments Sodium Lvl (test code = Sodium Lvl) 139 135-145 [place] 718872-04-09 00:20:00 Test Item Value Reference Range Interpretation Comments Potassium Lvl (test code = Potassium 4.9 3.5-5.1 Lvl) [facility]2022-04-09 00:20:00 Test Item Value Reference Range Interpretation Comments Chloride Lvl (test code = Chloride Lvl) 105 95-109 [facility]2022-04-09 00:20:00 Test Item Value Reference Range Interpretation Comments CO2 (test code = CO2) 30 24-32 [place] 718872-04-09 00:20:00 Test Item Value Reference Range Interpretation Comments Calcium Lvl (test code = Calcium Lvl) 9.5 8.5-10.5 [facility]2022-04-09 00:20:00 Test Item Value Reference Range Interpretation Comments AGAP (test code = AGAP) 8.9 10.0-20.0 [facility]2022-04-09 00:20:00 Test Item Value Reference Range Interpretation Comments eGFR (test code = eGFR) 129 [facility]2022-04-09 00:20:00 Test Item Value Reference Range Interpretation Comments Lactic Acid Lvl (test code = Lactic 1.2 0.5-2.2 Acid Lvl) [place] 718872-04-09 00:20:00 Test Item Value Reference Range Interpretation Comments Procalcitonin Lvl (test 0.09 See_Comment [Au tomated message] code = Procalcitonin Lvl) e system which generated this result transmitted ref erence range: <=0.10. The reference range was not used to interpr et this result as normal/abnormal . [facility] HospitalMrhgzyuXVQLNSPOUK3329-31-52 00:20:00 Test Item Value Reference Range Interpretation Comments WBC (test code = WBC) 10.1 3.7-10.4 [place] [address]-04-09 00:20:00 Test Item Value Reference Range Interpretation Comments RBC (test code = RBC) 5.14 4.70-6.10 [facility] HospitalRbmybxsZGVISWATQL7948-82-30 00:20:00 Test Item Value Reference Range Interpretation Comments Hgb (test code = Hgb) 15.5 14.0-18.0 [place] 357782-04-09 00:20:00 Test Item Value Reference Range Interpretation Comments Hct (test code = Hct) 46.5 42.0-54.0 [place] 357782-04-09 00:20:00 Test Item Value Reference Range Interpretation Comments MCV (test code = MCV) 90.5 80.0-94.0 [place] 357782-04-09 00:20:00 Test Item Value Reference Range Interpretation Comments MCH (test code = MCH) 30.1 pg 27.0-31.0 [place] 357782-04-09 00:20:00 Test Item Value Reference Range Interpretation Comments MCHC (test code = MCHC) 33.3 32.0-36.0 [place] 357782-04-09 00:20:00 Test Item Value Reference Range Interpretation Comments RDW (test code = RDW) 15.7 11.5-14.5 [place] 357782-04-09 00:20:00 Test Item Value Reference Range Interpretation Comments Platelet (test code = Platelet) 302 133-450 [facility] HospitalBghwnxjUAKULHHZEO2959-65-15 00:20:00 Test Item Value Reference Range Interpretation Comments MPV (test code = MPV) 8.9 7.4-10.4 [place] 357782-04-09 00:20:00 Test Item Value Reference Range Interpretation Comments Sed Rate (test code = 17 See_Comment [Auto mated message] The Sed Rate) system which ge nerated this result transmit lester reference range : <=15. The reference range was not used to interpr et this result as dany l/abnormal. [place] 357782-04-09 00:20:00 Test Item Value Reference Range Interpretation Comments PT (test code = PT) 13.1 s 12.0-14.7 [place] 357782-04-09 00:20:00 Test Item Value Reference Range Interpretation Comments INR (test code = INR) 1.00 1 0.85-1.17 [facility] HospitalOvrtnjwXURBIFTGHV7351-17-52 00:20:00 Test Item Value Reference Range Interpretation Comments PTT (test code = PTT) 31.5 s 22.9-35.8 [facility] HospitalMofwlqmOYNMPSUPNA2643-42-36 00:20:00 Test Item Value Reference Range Interpretation Comments Segs (test code = Segs) 68.7 45.0-75.0 [facility] HospitalXqgmpgnVTADVYNGEM6772-55-44 00:20:00 Test Item Value Reference Range Interpretation Comments Lymphocytes (test code = Lymphocytes) 19.6 20.0-40.0 [place] 357782-04-09 00:20:00 Test Item Value Reference Range Interpretation Comments Monocytes (test code = Monocytes) 9.4 2.0-12.0 [facility] HospitalMruqpdiFBWUHJSBTQ7702-99-92 00:20:00 Test Item Value Reference Range Interpretation Comments Eosinophils (test code = 1.4 See_Comment [A utomated message] The Eosinophils) system which ge nerated this result tra nsmitted reference range : <=4.0. The reference r boubacar was not used to int erpret this result as normal/abnormal . [facility] HospitalSdfgczbIHJBBVRKIV1417-31-50 00:20:00 Test Item Value Reference Range Interpretation Comments Basophils (test code = 0.9 See_Comment [Aut omated message] The Basophils) system which ge nerated this result tra nsmitted reference range : <=1.0. The reference r boubacar was not used to int erpret this result as normal/abnormal . [facility] HospitalFbedyglMLNPRYLQIK7183-85-70 00:20:00 Test Item Value Reference Range Interpretation Comments Neutrophils # (test code = Neutrophils 6.9 1.5-8.1 #) [facility] HospitalRrxcqqnQXNYCKKKZC2256-82-61 00:20:00 Test Item Value Reference Range Interpretation Comments Lymphocytes # (test code = Lymphocytes 2.0 1.0-5.5 #) [facility] HospitalPwyiqptPFBNVJTCKW4580-26-25 00:20:00 Test Item Value Reference Range Interpretation Comments Monocytes # (test code 1.0 See_Comment [Aut omated message] The = Monocytes #) system which generated this result tra nsmitted reference range : <=0.8. The reference r boubacar was not used to int erpret this result as normal/abnormal . [facility]RvwahwmOKRSTPOHAU1451-34-72 00:20:00 Test Item Value Reference Range Interpretation Comments Eosinophils # (test code 0.1 See_Comment [A utomated message] The = Eosinophils #) system whic h generated this result tra nsmitted reference range : <=0.5. The reference r boubacar was not used to int erpret this result as normal/abnormal . [facility] BrookBzpdtwwWJKZAACIJU2870-72-29 00:20:00 Test Item Value Reference Range Interpretation Comments Basophils # (test code 0.1 See_Comment [Aut omated message] The = Basophils #) system which generated this result tra nsmitted reference range : <=0.2. The reference r boubacar was not used to int erpret this result as normal/abnormal . [facility] BrookAnxeuvdLOKTZQFSAD8554-87-53 00:20:00 Test Item Value Reference Range Interpretation Comments C-REACTIVE PROTEIN (test code = 13.2 C-REACTIVE PROTEIN) [facility] [employer] [id number] 00:20:00 Test Item Value Reference Range Interpretation Comments ABO/Rh (test code = ABO/Rh) AB POS [facility] [employer] KIVPFFK7069-01-59 00:20:00 Test Item Value Reference Range Interpretation Comments Antibody Scrn (test Negative (10/20/21 7:20 code = Antibody Scrn) PM) [facility] [id number] 00:20:00 Test Item Value Reference Range Interpretation Comments Glucose Lvl (test code = Glucose Lvl) 74 70-99 [facility] [employer] MBGXW0520-00-60 00:20:00 Test Item Value Reference Range Interpretation Comments BUN (test code = BUN) 15 7-22 [facility] [employer] KSQVS8091-43-94 00:20:00 Test Item Value Reference Range Interpretation Comments Creatinine Lvl (test code = Creatinine 0.61 0.50-1.40 Lvl) [facility] [employer] ZBGKN4252-56-22 00:20:00 Test Item Value Reference Range Interpretation Comments Sodium Lvl (test code = Sodium Lvl) 139 135-145 [facility] [employer] WTWZI2453-29-06 00:20:00 Test Item Value Reference Range Interpretation Comments Potassium Lvl (test code = Potassium 4.9 3.5-5.1 Lvl) [place] 718872-04-09 00:20:00 Test Item Value Reference Range Interpretation Comments Chloride Lvl (test code = Chloride Lvl) 105 95-109 [place] 718872-04-09 00:20:00 Test Item Value Reference Range Interpretation Comments CO2 (test code = CO2) 30 24-32 [place] 718872-04-09 00:20:00 Test Item Value Reference Range Interpretation Comments Calcium Lvl (test code = Calcium Lvl) 9.5 8.5-10.5 [place] 718872-04-09 00:20:00 Test Item Value Reference Range Interpretation Comments AGAP (test code = AGAP) 8.9 10.0-20.0 [place] 718872-04-09 00:20:00 Test Item Value Reference Range Interpretation Comments eGFR (test code = eGFR) 129 [place] 718872-04-09 00:20:00 Test Item Value Reference Range Interpretation Comments Lactic Acid Lvl (test code = Lactic 1.2 0.5-2.2 Acid Lvl) [place] 718872-04-09 00:20:00 Test Item Value Reference Range Interpretation Comments Procalcitonin Lvl (test 0.09 See_Comment [Au tomated message] code = Procalcitonin Lvl) e system which generated this result transmitted ref erence range: <=0.10. The reference range was not used to interpr et this result as normal/abnormal . [place] 357782-04-09 00:20:00 Test Item Value Reference Range Interpretation Comments WBC (test code = WBC) 10.1 3.7-10.4 [place] 357782-04-09 00:20:00 Test Item Value Reference Range Interpretation Comments RBC (test code = RBC) 5.14 4.70-6.10 [place] [address]-04-09 00:20:00 Test Item Value Reference Range Interpretation Comments Hgb (test code = Hgb) 15.5 14.0-18.0 [place] [address]-04-09 00:20:00 Test Item Value Reference Range Interpretation Comments Hct (test code = Hct) 46.5 42.0-54.0 [place] [address]-04-09 00:20:00 Test Item Value Reference Range Interpretation Comments MCV (test code = MCV) 90.5 80.0-94.0 [facility] HospitalIxrqmgsDCQONGUQSW6047-66-59 00:20:00 Test Item Value Reference Range Interpretation Comments MCH (test code = MCH) 30.1 pg 27.0-31.0 [facility] HospitalOzvjsbyNOQHBCBBAP1850-50-28 00:20:00 Test Item Value Reference Range Interpretation Comments MCHC (test code = MCHC) 33.3 32.0-36.0 [facility] HospitalFboxwndTVFNHSYUGS4667-63-14 00:20:00 Test Item Value Reference Range Interpretation Comments RDW (test code = RDW) 15.7 11.5-14.5 [facility] HospitalDhgegziAOLVVBNBDW8776-97-55 00:20:00 Test Item Value Reference Range Interpretation Comments Platelet (test code = Platelet) 302 133-450 [facility] HospitalMkcnilkUZJZCMAMNT0045-99-42 00:20:00 Test Item Value Reference Range Interpretation Comments MPV (test code = MPV) 8.9 7.4-10.4 [facility] HospitalTjzmjegRGLYEXCWMF1976-01-70 00:20:00 Test Item Value Reference Range Interpretation Comments Sed Rate (test code = 17 See_Comment [Auto mated message] The Sed Rate) system which ge nerated this result transmit lester reference range : <=15. The reference range was not used to interpr et this result as dany l/abnormal. [facility] HospitalFibdvwiGFPWLNRZHV7607-99-82 00:20:00 Test Item Value Reference Range Interpretation Comments PT (test code = PT) 13.1 s 12.0-14.7 [facility] WITH [id number] 04:47:32 Test Item Value Reference Range Interpretation Comments WBC (test code = See_Comment H [Automated 6047-2) message] The sy stem which generated this result transmitted reference range : 4.20 - 10.70 10*3/?L. The reference range was not used to interpret this result as normal/abnormal . RBC (test code = See_Comment [Automated 906-8) message] The sy stem which generated this [...] RDW-SD (test code = 45.7 fL 38.5-51.6 86742-8) RDW-CV (test code = 14.6 % 12.1-15.4 788-0) PLT (test code = See_Comment [Automated 777-3) message] The sy stem which generated this result transmitted reference range : 150 - 328 10*3/ ?L. The reference r boubacar was not used to interpret this result as normal/abnormal . MPV (test code = 11.0 fL 9.8-13.0 46283-9) NRBC/100 WBC (test See_Comment [Automat ed code = 6786819686) message] The system which generated this result transmitted reference range : 0.0 - 10.0 /100 WBCs. The refer ence range was not u sed to interpret th is result as normal/abnormal . NRBC x10^3 (test code <0.01 See_Comment [Auto mated = 4560090026) message] The s ystem which generated this result transmitted reference range : 10*3/?L. The reference range was not used to interpret this result as normal/abnormal . GRAN MAT (NEUT) % 72.2 % (test code = 770-8) IMM GRAN % (test code 0.60 % = 3918472658) LYMPH % (test code = 17.7 % 736-9) MONO % (test code = 7.4 % 5905-5) EOS % (test code = 1.8 % 713-8) BASO % (test code = 0.3 % 706-2) GRAN MAT x10^3(ANC) 9.09 10*3/uL 1.99-6.95 H (test code = 9799054121) IMM GRAN x10^3 (test 0.07 10*3/uL 0.00-0.06 H code = 7800134966) LYMPH x10^3 (test code 2.22 10*3/uL 1.09-3.23 = 731-0) MONO x10^3 (test code 0.93 10*3/uL 0.36-1.02 = 742-7) EOS x10^3 (test code = 0.22 10*3/uL 0.06-0.53 711-2) BASO x10^3 (test code 0.04 10*3/uL 0.01-0.09 = 704-7) Lab Interpretation Abnormal (test code = 71809-4) [facility] 04:36:41 Test Item Value Reference Range Interpretation Comments NA (test code = 138 mmol/L 135-145 0371147004) K (test code = 4.6 mmol/L 3.5-5.0 0719709801) CL (test code = 105 mmol/L 98-108 0738148682) CO2 TOTAL (test code = 21 mmol/L 23-31 L 6424458276) AGAP (test code = 2-16 4418382076) BUN (test code = 13 mg/dL 7-23 2425446122) GLUCOSE (test code = 167 mg/dL 70-110 H 5078925899) CREATININE (test code = 0.48 mg/dL 0.60-1.25 L 8896989178) TOTAL BILI (test code = 0.8 mg/dL 0.1-1.3 7362408248) CALCIUM (test code = 9.3 mg/dL 8.6-10.6 7501985533) T PROTEIN (test code = 7.6 g/dL 6.3-8.2 5768148318) ALBUMIN (test code = 4.2 g/dL 3.5-5.0 7266731940) ALK PHOS (test code = 98 U/L 34-122 3536656075) ALTv (test code = 71 U/L 5-50 H 1742-6) AST(SGOT) (test code = 36 U/L 13-40 8731796126) eGFR (test code = mL/min/1.73m2 9990090486) ARPITA (test code = ARPITA) Association of [...] tests). Lab Interpretation Abnormal (test code = 84354-3) [facility] Test Item Value Reference Range Interpretation Comments MAGNESIUM (test code = 3687654147) 1.6 mg/dL 1.7-2.4 L Lab Interpretation (test code = Abnormal 25737-2) [facility] BANK [id number] 07:52:00 Test Item Value Reference Range Interpretation Comments ABO/Rh (test code = ABO/Rh) AB POS [facility] [employer] [id number] 07:52:00 Test Item Value Reference Range Interpretation Comments Antibody Scrn (test Negative (10/09/21 2:52 code = Antibody Scrn) AM) [facility] [id number] 07:52:00 Test Item Value Reference Range Interpretation Comments Glucose Lvl (test code = Glucose Lvl) 291 70-99 [place] 718872-03-28 07:52:00 Test Item Value Reference Range Interpretation Comments BUN (test code = BUN) 16 7-22 [place] 718872-03-28 07:52:00 Test Item Value Reference Range Interpretation Comments Creatinine Lvl (test code = Creatinine 0.83 0.50-1.40 Lvl) [place] 718872-03-28 07:52:00 Test Item Value Reference Range Interpretation Comments Sodium Lvl (test code = Sodium Lvl) 138 135-145 [place] 718872-03-28 07:52:00 Test Item Value Reference Range Interpretation Comments Potassium Lvl (test code = Potassium 4.7 3.5-5.1 Lvl) [place] 718872-03-28 07:52:00 Test Item Value Reference Range Interpretation Comments Chloride Lvl (test code = Chloride Lvl) 113 95-109 [place] 718872-03-28 07:52:00 Test Item Value Reference Range Interpretation Comments CO2 (test code = CO2) 18 24-32 [place] 718872-03-28 07:52:00 Test Item Value Reference Range Interpretation Comments AGAP (test code = AGAP) 11.7 10.0-20.0 [place] 718872-03-28 07:52:00 Test Item Value Reference Range Interpretation Comments Calcium Lvl (test code = Calcium Lvl) 9.4 8.5-10.5 [place] 718872-03-28 07:52:00 Test Item Value Reference Range Interpretation Comments eGFR (test code = eGFR) 113 [place] [address]-03-28 07:52:00 Test Item Value Reference Range Interpretation Comments WBC (test code = WBC) 5.5 3.7-10.4 [place] [address]-03-28 07:52:00 Test Item Value Reference Range Interpretation Comments RBC (test code = RBC) 5.53 4.70-6.10 [place] [address]-03-28 07:52:00 Test Item Value Reference Range Interpretation Comments Hgb (test code = Hgb) 16.3 14.0-18.0 [place] [address]-03-28 07:52:00 Test Item Value Reference Range Interpretation Comments Hct (test code = Hct) 50.5 42.0-54.0 [facility] RzubzuoDJPHRBYJBR4136-96-61 07:52:00 Test Item Value Reference Range Interpretation Comments MCV (test code = MCV) 91.3 80.0-94.0 [facility] ZoxkfpjKNQONQJETD7476-57-86 07:52:00 Test Item Value Reference Range Interpretation Comments MCH (test code = MCH) 29.5 pg 27.0-31.0 [facility] CtosfsfKEEBLFHBPX5414-62-09 07:52:00 Test Item Value Reference Range Interpretation Comments MCHC (test code = MCHC) 32.3 32.0-36.0 [facility] TalchynUNMWJJQWQZ8793-63-23 07:52:00 Test Item Value Reference Range Interpretation Comments RDW (test code = RDW) 15.4 11.5-14.5 [facility] EofsszmWEQKXSCBDF0256-07-31 07:52:00 Test Item Value Reference Range Interpretation Comments Platelet (test code = Platelet) 210 133-450 [facility] VmunpprRKWSYVJMRE7573-11-41 07:52:00 Test Item Value Reference Range Interpretation Comments MPV (test code = MPV) 9.3 7.4-10.4 [facility] [employer] [id number] 07:52:00 Test Item Value Reference Range Interpretation Comments ABO/Rh (test code = ABO/Rh) AB POS [employer] [id number] 07:52:00 Test Item Value Reference Range Interpretation Comments Antibody Scrn (test Negative (10/09/21 2:52 code = Antibody Scrn) AM) [employer] [id number] 07:52:00 Test Item Value Reference Range Interpretation Comments Glucose Lvl (test code = Glucose Lvl) 291 70-99 [facility] [employer]2022-03-28 07:52:00 Test Item Value Reference Range Interpretation Comments BUN (test code = BUN) 16 7-22 [employer] [id number] 07:52:00 Test Item Value Reference Range Interpretation Comments Creatinine Lvl (test code = Creatinine 0.83 0.50-1.40 Lvl) [employer]2022-03-28 07:52:00 Test Item Value Reference Range Interpretation Comments Sodium Lvl (test code = Sodium Lvl) 138 135-145 [facility] [place] [id number] 07:52:00 Test Item Value Reference Range Interpretation Comments Potassium Lvl (test code = Potassium 4.7 3.5-5.1 Lvl) [place] 718872-03-28 07:52:00 Test Item Value Reference Range Interpretation Comments Chloride Lvl (test code = Chloride Lvl) 113 95-109 [place] 718872-03-28 07:52:00 Test Item Value Reference Range Interpretation Comments CO2 (test code = CO2) 18 24-32 [place] 718872-03-28 07:52:00 Test Item Value Reference Range Interpretation Comments AGAP (test code = AGAP) 11.7 10.0-20.0 [place] 718872-03-28 07:52:00 Test Item Value Reference Range Interpretation Comments Calcium Lvl (test code = Calcium Lvl) 9.4 8.5-10.5 [place] 718872-03-28 07:52:00 Test Item Value Reference Range Interpretation Comments eGFR (test code = eGFR) 113 [place] 357782-03-28 07:52:00 Test Item Value Reference Range Interpretation Comments WBC (test code = WBC) 5.5 3.7-10.4 [place] [address]-03-28 07:52:00 Test Item Value Reference Range Interpretation Comments RBC (test code = RBC) 5.53 4.70-6.10 [place] [address]-03-28 07:52:00 Test Item Value Reference Range Interpretation Comments Hgb (test code = Hgb) 16.3 14.0-18.0 [place] [address]-03-28 07:52:00 Test Item Value Reference Range Interpretation Comments Hct (test code = Hct) 50.5 42.0-54.0 [place] [address]-03-28 07:52:00 Test Item Value Reference Range Interpretation Comments MCV (test code = MCV) 91.3 80.0-94.0 [place] [address]-03-28 07:52:00 Test Item Value Reference Range Interpretation Comments MCH (test code = MCH) 29.5 pg 27.0-31.0 [place] 357782-03-28 07:52:00 Test Item Value Reference Range Interpretation Comments MCHC (test code = MCHC) 32.3 32.0-36.0 [facility] LovgwakSXQSASACZC6862-83-60 07:52:00 Test Item Value Reference Range Interpretation Comments RDW (test code = RDW) 15.4 11.5-14.5 [facility]inteNopsuzhBOIBRIGAKR8351-92-97 07:52:00 Test Item Value Reference Range Interpretation Comments Platelet (test code = Platelet) 210 133-450 [facility] PointeRkaddbdROCQNGQCXH4928-91-77 07:52:00 Test Item Value Reference Range Interpretation Comments MPV (test code = MPV) 9.3 7.4-10.4 [facility] [employer] [id number] 07:52:00 Test Item Value Reference Range Interpretation Comments ABO/Rh (test code = ABO/Rh) AB POS [facility] [employer] [id number] 07:52:00 Test Item Value Reference Range Interpretation Comments Antibody Scrn (test Negative (10/09/21 2:52 code = Antibody Scrn) AM) [facility] [employer] [id number] 07:52:00 Test Item Value Reference Range Interpretation Comments Glucose Lvl (test code = Glucose Lvl) 291 70-99 [facility] [employer] [id number] 07:52:00 Test Item Value Reference Range Interpretation Comments BUN (test code = BUN) 16 7-22 [facility] [employer] [id number] 07:52:00 Test Item Value Reference Range Interpretation Comments Creatinine Lvl (test code = Creatinine 0.83 0.50-1.40 Lvl) [facility] [employer] [id number] 07:52:00 Test Item Value Reference Range Interpretation Comments Sodium Lvl (test code = Sodium Lvl) 138 135-145 [facility] [employer] [id number] 07:52:00 Test Item Value Reference Range Interpretation Comments Potassium Lvl (test code = Potassium 4.7 3.5-5.1 Lvl) [facility] [employer] [id number] 07:52:00 Test Item Value Reference Range Interpretation Comments Chloride Lvl (test code = Chloride Lvl) 113 95-109 [facility] [employer] [id number] 07:52:00 Test Item Value Reference Range Interpretation Comments CO2 (test code = CO2) 18 24-32 [facility] [employer] [id number] 07:52:00 Test Item Value Reference Range Interpretation Comments AGAP (test code = AGAP) 11.7 10.0-20.0 [facility]2022-03-28 07:52:00 Test Item Value Reference Range Interpretation Comments Calcium Lvl (test code = Calcium Lvl) 9.4 8.5-10.5 [facility]2022-03-28 07:52:00 Test Item Value Reference Range Interpretation Comments eGFR (test code = eGFR) 113 [facility] HospitalXixrndmGPKIWVISTY5877-72-81 07:52:00 Test Item Value Reference Range Interpretation Comments WBC (test code = WBC) 5.5 3.7-10.4 [place] 357782-03-28 07:52:00 Test Item Value Reference Range Interpretation Comments RBC (test code = RBC) 5.53 4.70-6.10 [place] 357782-03-28 07:52:00 Test Item Value Reference Range Interpretation Comments Hgb (test code = Hgb) 16.3 14.0-18.0 [place] 357782-03-28 07:52:00 Test Item Value Reference Range Interpretation Comments Hct (test code = Hct) 50.5 42.0-54.0 [place] 357782-03-28 07:52:00 Test Item Value Reference Range Interpretation Comments MCV (test code = MCV) 91.3 80.0-94.0 [place] 357782-03-28 07:52:00 Test Item Value Reference Range Interpretation Comments MCH (test code = MCH) 29.5 pg 27.0-31.0 [place] 357782-03-28 07:52:00 Test Item Value Reference Range Interpretation Comments MCHC (test code = MCHC) 32.3 32.0-36.0 [place] 357782-03-28 07:52:00 Test Item Value Reference Range Interpretation Comments RDW (test code = RDW) 15.4 11.5-14.5 [place] 357782-03-28 07:52:00 Test Item Value Reference Range Interpretation Comments Platelet (test code = Platelet) 210 133-450 [place] 357782-03-28 07:52:00 Test Item Value Reference Range Interpretation Comments MPV (test code = MPV) 9.3 7.4-10.4 [facility] [id number] 07:52:00 Test Item Value Reference Range Interpretation Comments ABO/Rh (test code = ABO/Rh) AB POS [facility] [id number] 07:52:00 Test Item Value Reference Range Interpretation Comments Antibody Scrn (test Negative (10/09/21 2:52 code = Antibody Scrn) AM) [facility] [id number] 07:52:00 Test Item Value Reference Range Interpretation Comments Glucose Lvl (test code = Glucose Lvl) 291 70-99 [facility] [id number] 07:52:00 Test Item Value Reference Range Interpretation Comments BUN (test code = BUN) 16 - [facility]inte[facility] [id number] 07:52:00 Test Item Value Reference Range Interpretation Comments Creatinine Lvl (test code = Creatinine 0.83 0.50-1.40 Lvl) [facility] [id number] 07:52:00 Test Item Value Reference Range Interpretation Comments Sodium Lvl (test code = Sodium Lvl) 138 135-145 [facility] [id number] 07:52:00 Test Item Value Reference Range Interpretation Comments Potassium Lvl (test code = Potassium 4.7 3.5-5.1 Lvl) [facility] [id number] 07:52:00 Test Item Value Reference Range Interpretation Comments Chloride Lvl (test code = Chloride Lvl) 113 95-109 [facility] [id number] 07:52:00 Test Item Value Reference Range Interpretation Comments CO2 (test code = CO2) 18 24-32 [facility] [id number] 07:52:00 Test Item Value Reference Range Interpretation Comments AGAP (test code = AGAP) 11.7 10.0-20.0 [facility] [employer] [id number] 07:52:00 Test Item Value Reference Range Interpretation Comments Calcium Lvl (test code = Calcium Lvl) 9.4 8.5-10.5 [facility] [id number] 07:52:00 Test Item Value Reference Range Interpretation Comments eGFR (test code = eGFR) 113 [facility]zzunLZFDUEWMDO2662-51-65 07:52:00 Test Item Value Reference Range Interpretation Comments WBC (test code = WBC) 5.5 3.7-10.4 [facility]PvykysbUBLZANLZQC5413-98-60 07:52:00 Test Item Value Reference Range Interpretation Comments RBC (test code = RBC) 5.53 4.70-6.10 [facility] MichiganDcnwmaeXUCUPYPRKI5240-21-27 07:52:00 Test Item Value Reference Range Interpretation Comments Hgb (test code = Hgb) 16.3 14.0-18.0 [facility] HospitalFsjfpmbMODXBNRQJL7203-93-72 07:52:00 Test Item Value Reference Range Interpretation Comments Hct (test code = Hct) 50.5 42.0-54.0 [facility] BrookAriplwmVAJKAWLPJQ8159-02-39 07:52:00 Test Item Value Reference Range Interpretation Comments MCV (test code = MCV) 91.3 80.0-94.0 [facility] MichiganVzhnpycZHRHZMHYFS5237-12-62 07:52:00 Test Item Value Reference Range Interpretation Comments MCH (test code = MCH) 29.5 pg 27.0-31.0 [facility] MichiganRfdkrpdVYUNAPKKNS6195-91-89 07:52:00 Test Item Value Reference Range Interpretation Comments MCHC (test code = MCHC) 32.3 32.0-36.0 [facility] BrookEdpfewlXNFLIIKBMM8902-35-90 07:52:00 Test Item Value Reference Range Interpretation Comments RDW (test code = RDW) 15.4 11.5-14.5 [facility] BrookBqckgpeZXQDVENHTR7519-90-54 07:52:00 Test Item Value Reference Range Interpretation Comments Platelet (test code = Platelet) 210 133-450 [facility] HospitalWedrlelOMNSELPEGP1084-69-26 07:52:00 Test Item Value Reference Range Interpretation Comments MPV (test code = MPV) 9.3 7.4-10.4 [facility] PointeBluPanda [id number] 07:52:00 Test Item Value Reference Range Interpretation Comments ABO/Rh (test code = ABO/Rh) AB POS [facility] [employer] [id number] 07:52:00 Test Item Value Reference Range Interpretation Comments Antibody Scrn (test Negative (10/09/21 2:52 code = Antibody Scrn) AM) [facility] BrookJobHoreca [id number] 07:52:00 Test Item Value Reference Range Interpretation Comments Glucose Lvl (test code = Glucose Lvl) 291 70-99 [place] 718872-03-28 07:52:00 Test Item Value Reference Range Interpretation Comments BUN (test code = BUN) 16 7-22 [place] 718872-03-28 07:52:00 Test Item Value Reference Range Interpretation Comments Creatinine Lvl (test code = Creatinine 0.83 0.50-1.40 Lvl) [place] 718872-03-28 07:52:00 Test Item Value Reference Range Interpretation Comments Sodium Lvl (test code = Sodium Lvl) 138 135-145 [place] 718872-03-28 07:52:00 Test Item Value Reference Range Interpretation Comments Potassium Lvl (test code = Potassium 4.7 3.5-5.1 Lvl) [place] 718872-03-28 07:52:00 Test Item Value Reference Range Interpretation Comments Chloride Lvl (test code = Chloride Lvl) 113 95-109 [place] 718872-03-28 07:52:00 Test Item Value Reference Range Interpretation Comments CO2 (test code = CO2) 18 24-32 [place] 718872-03-28 07:52:00 Test Item Value Reference Range Interpretation Comments AGAP (test code = AGAP) 11.7 10.0-20.0 [place] 718872-03-28 07:52:00 Test Item Value Reference Range Interpretation Comments Calcium Lvl (test code = Calcium Lvl) 9.4 8.5-10.5 [place] 718872-03-28 07:52:00 Test Item Value Reference Range Interpretation Comments eGFR (test code = eGFR) 113 [place] [address]-03-28 07:52:00 Test Item Value Reference Range Interpretation Comments WBC (test code = WBC) 5.5 3.7-10.4 [place] [address]-03-28 07:52:00 Test Item Value Reference Range Interpretation Comments RBC (test code = RBC) 5.53 4.70-6.10 [place] [address]-03-28 07:52:00 Test Item Value Reference Range Interpretation Comments Hgb (test code = Hgb) 16.3 14.0-18.0 [place] 357782-03-28 07:52:00 Test Item Value Reference Range Interpretation Comments Hct (test code = Hct) 50.5 42.0-54.0 [facility] PointeLitgkloYJLLQWDWBK5499-45-38 07:52:00 Test Item Value Reference Range Interpretation Comments MCV (test code = MCV) 91.3 80.0-94.0 [facility] PointeEhswynoXXDJGUUNRY9152-47-10 07:52:00 Test Item Value Reference Range Interpretation Comments MCH (test code = MCH) 29.5 pg 27.0-31.0 [facility] PointeSlakvxyKZYNIWRESF5997-98-45 07:52:00 Test Item Value Reference Range Interpretation Comments MCHC (test code = MCHC) 32.3 32.0-36.0 [facility] PointeWtflyjgJIGRMNOFUR0924-03-16 07:52:00 Test Item Value Reference Range Interpretation Comments RDW (test code = RDW) 15.4 11.5-14.5 [facility] PointeRefbalgJSVAWNTGMW7434-84-82 07:52:00 Test Item Value Reference Range Interpretation Comments Platelet (test code = Platelet) 210 133-450 [facility] PointeEcgkyojPUYWLECAXJ6317-26-37 07:52:00 Test Item Value Reference Range Interpretation Comments MPV (test code = MPV) 9.3 7.4-10.4 [facility] [employer] [id number] 07:52:00 Test Item Value Reference Range Interpretation Comments ABO/Rh (test code = ABO/Rh) AB POS [facility] [employer] [id number] 07:52:00 Test Item Value Reference Range Interpretation Comments Antibody Scrn (test Negative (10/09/21 2:52 code = Antibody Scrn) AM) [facility] [employer] [id number] 07:52:00 Test Item Value Reference Range Interpretation Comments Glucose Lvl (test code = Glucose Lvl) 291 70-99 [facility] [employer] [id number] 07:52:00 Test Item Value Reference Range Interpretation Comments BUN (test code = BUN) 16 7-22 [facility] [employer] [id number] 07:52:00 Test Item Value Reference Range Interpretation Comments Creatinine Lvl (test code = Creatinine 0.83 0.50-1.40 Lvl) [facility] [employer] [id number] 07:52:00 Test Item Value Reference Range Interpretation Comments Sodium Lvl (test code = Sodium Lvl) 138 135-145 [place] 718872-03-28 07:52:00 Test Item Value Reference Range Interpretation Comments Potassium Lvl (test code = Potassium 4.7 3.5-5.1 Lvl) [place] 718872-03-28 07:52:00 Test Item Value Reference Range Interpretation Comments Chloride Lvl (test code = Chloride Lvl) 113 95-109 [place] 718872-03-28 07:52:00 Test Item Value Reference Range Interpretation Comments CO2 (test code = CO2) 18 24-32 [place] 718872-03-28 07:52:00 Test Item Value Reference Range Interpretation Comments AGAP (test code = AGAP) 11.7 10.0-20.0 [place] 718872-03-28 07:52:00 Test Item Value Reference Range Interpretation Comments Calcium Lvl (test code = Calcium Lvl) 9.4 8.5-10.5 [place] 718872-03-28 07:52:00 Test Item Value Reference Range Interpretation Comments eGFR (test code = eGFR) 113 [place] 357782-03-28 07:52:00 Test Item Value Reference Range Interpretation Comments WBC (test code = WBC) 5.5 3.7-10.4 [place] [address]-03-28 07:52:00 Test Item Value Reference Range Interpretation Comments RBC (test code = RBC) 5.53 4.70-6.10 [place] [address]-03-28 07:52:00 Test Item Value Reference Range Interpretation Comments Hgb (test code = Hgb) 16.3 14.0-18.0 [place] [address]-03-28 07:52:00 Test Item Value Reference Range Interpretation Comments Hct (test code = Hct) 50.5 42.0-54.0 [place] [address]-03-28 07:52:00 Test Item Value Reference Range Interpretation Comments MCV (test code = MCV) 91.3 80.0-94.0 [place] [address]-03-28 07:52:00 Test Item Value Reference Range Interpretation Comments MCH (test code = MCH) 29.5 pg 27.0-31.0 [place] [address]-03-28 07:52:00 Test Item Value Reference Range Interpretation Comments MCHC (test code = MCHC) 32.3 32.0-36.0 [facility] RcvvnraQUSFBFTQER1098-88-95 07:52:00 Test Item Value Reference Range Interpretation Comments RDW (test code = RDW) 15.4 11.5-14.5 [facility] PointeCqxmovpXLBXDRNVFK0859-21-33 07:52:00 Test Item Value Reference Range Interpretation Comments Platelet (test code = Platelet) 210 133-450 [facility] PointePdqrleqPXFYQCWMEI4736-46-66 07:52:00 Test Item Value Reference Range Interpretation Comments MPV (test code = MPV) 9.3 7.4-10.4 [facility] [employer] [id number] 07:52:00 Test Item Value Reference Range Interpretation Comments ABO/Rh (test code = ABO/Rh) AB POS [facility] [employer] [id number] 07:52:00 Test Item Value Reference Range Interpretation Comments Antibody Scrn (test Negative (10/09/21 2:52 code = Antibody Scrn) AM) [facility] [employer] [id number] 07:52:00 Test Item Value Reference Range Interpretation Comments Glucose Lvl (test code = Glucose Lvl) 291 70-99 [facility] [employer] [id number] 07:52:00 Test Item Value Reference Range Interpretation Comments BUN (test code = BUN) 16 7-22 [facility] [employer] [id number] 07:52:00 Test Item Value Reference Range Interpretation Comments Creatinine Lvl (test code = Creatinine 0.83 0.50-1.40 Lvl) [facility] [employer] [id number] 07:52:00 Test Item Value Reference Range Interpretation Comments Sodium Lvl (test code = Sodium Lvl) 138 135-145 [facility] [employer] [id number] 07:52:00 Test Item Value Reference Range Interpretation Comments Potassium Lvl (test code = Potassium 4.7 3.5-5.1 Lvl) [facility] [employer] [id number] 07:52:00 Test Item Value Reference Range Interpretation Comments Chloride Lvl (test code = Chloride Lvl) 113 95-109 [facility] [employer] [id number] 07:52:00 Test Item Value Reference Range Interpretation Comments CO2 (test code = CO2) 18 24-32 [facility] [employer] [id number] 07:52:00 Test Item Value Reference Range Interpretation Comments AGAP (test code = AGAP) 11.7 10.0-20.0 [facility]2022-03-28 07:52:00 Test Item Value Reference Range Interpretation Comments Calcium Lvl (test code = Calcium Lvl) 9.4 8.5-10.5 [facility]2022-03-28 07:52:00 Test Item Value Reference Range Interpretation Comments eGFR (test code = eGFR) 113 [facility] HospitalCylnfmfWMSCXXMSAU0356-65-84 07:52:00 Test Item Value Reference Range Interpretation Comments WBC (test code = WBC) 5.5 3.7-10.4 [place] 357782-03-28 07:52:00 Test Item Value Reference Range Interpretation Comments RBC (test code = RBC) 5.53 4.70-6.10 [place] 357782-03-28 07:52:00 Test Item Value Reference Range Interpretation Comments Hgb (test code = Hgb) 16.3 14.0-18.0 [place] 357782-03-28 07:52:00 Test Item Value Reference Range Interpretation Comments Hct (test code = Hct) 50.5 42.0-54.0 [place] 357782-03-28 07:52:00 Test Item Value Reference Range Interpretation Comments MCV (test code = MCV) 91.3 80.0-94.0 [place] 357782-03-28 07:52:00 Test Item Value Reference Range Interpretation Comments MCH (test code = MCH) 29.5 pg 27.0-31.0 [place] 357782-03-28 07:52:00 Test Item Value Reference Range Interpretation Comments MCHC (test code = MCHC) 32.3 32.0-36.0 [place] 357782-03-28 07:52:00 Test Item Value Reference Range Interpretation Comments RDW (test code = RDW) 15.4 11.5-14.5 [facility] HospitalVjqccjlKEQWVCZTNA6178-48-73 07:52:00 Test Item Value Reference Range Interpretation Comments Platelet (test code = Platelet) 210 133-450 [place] 357782-03-28 07:52:00 Test Item Value Reference Range Interpretation Comments MPV (test code = MPV) 9.3 7.4-10.4 [place] 718872-03-27 10:12:00 Test Item Value Reference Range Interpretation Comments Glucose Lvl (test code = Glucose Lvl) 115 70-99 [place] 718872-03-27 10:12:00 Test Item Value Reference Range Interpretation Comments BUN (test code = BUN) 18 7-22 [place] 718872-03-27 10:12:00 Test Item Value Reference Range Interpretation Comments Creatinine Lvl (test code = Creatinine 0.78 0.50-1.40 Lvl) [place] 718872-03-27 10:12:00 Test Item Value Reference Range Interpretation Comments Sodium Lvl (test code = Sodium Lvl) 138 135-145 [place] 718872-03-27 10:12:00 Test Item Value Reference Range Interpretation Comments Potassium Lvl (test code = Potassium 4.6 3.5-5.1 Lvl) [place] 718872-03-27 10:12:00 Test Item Value Reference Range Interpretation Comments Chloride Lvl (test code = Chloride Lvl) 111 95-109 [place] 718872-03-27 10:12:00 Test Item Value Reference Range Interpretation Comments CO2 (test code = CO2) 21 24-32 [place] 718872-03-27 10:12:00 Test Item Value Reference Range Interpretation Comments AGAP (test code = AGAP) 10.6 10.0-20.0 [place] 718872-03-27 10:12:00 Test Item Value Reference Range Interpretation Comments Calcium Lvl (test code = Calcium Lvl) 8.6 8.5-10.5 [place] 718872-03-27 10:12:00 Test Item Value Reference Range Interpretation Comments eGFR (test code = eGFR) 116 [place] 357782-03-27 10:12:00 Test Item Value Reference Range Interpretation Comments WBC (test code = WBC) 8.2 3.7-10.4 [place] 357782-03-27 10:12:00 Test Item Value Reference Range Interpretation Comments RBC (test code = RBC) 5.14 4.70-6.10 [place] 357782-03-27 10:12:00 Test Item Value Reference Range Interpretation Comments Hgb (test code = Hgb) 15.5 14.0-18.0 [place] [address]-03-27 10:12:00 Test Item Value Reference Range Interpretation Comments Hct (test code = Hct) 46.0 42.0-54.0 [place] [address]-03-27 10:12:00 Test Item Value Reference Range Interpretation Comments MCV (test code = MCV) 89.5 80.0-94.0 [place] [address]-03-27 10:12:00 Test Item Value Reference Range Interpretation Comments MCH (test code = MCH) 30.2 pg 27.0-31.0 [place] [address]-03-27 10:12:00 Test Item Value Reference Range Interpretation Comments MCHC (test code = MCHC) 33.8 32.0-36.0 [place] [address]-03-27 10:12:00 Test Item Value Reference Range Interpretation Comments RDW (test code = RDW) 15.3 11.5-14.5 [place] [address]-03-27 10:12:00 Test Item Value Reference Range Interpretation Comments Platelet (test code = Platelet) 358 133-450 [place] [address]-03-27 10:12:00 Test Item Value Reference Range Interpretation Comments MPV (test code = MPV) 8.3 7.4-10.4 [facility]2022-03-27 10:12:00 Test Item Value Reference Range Interpretation Comments Glucose Lvl (test code = Glucose Lvl) 115 70-99 [place] 718872-03-27 10:12:00 Test Item Value Reference Range Interpretation Comments BUN (test code = BUN) 18 7-22 [place] 718872-03-27 10:12:00 Test Item Value Reference Range Interpretation Comments Creatinine Lvl (test code = Creatinine 0.78 0.50-1.40 Lvl) [place] 718872-03-27 10:12:00 Test Item Value Reference Range Interpretation Comments Sodium Lvl (test code = Sodium Lvl) 138 135-145 [place] 718872-03-27 10:12:00 Test Item Value Reference Range Interpretation Comments Potassium Lvl (test code = Potassium 4.6 3.5-5.1 Lvl) [place] 718872-03-27 10:12:00 Test Item Value Reference Range Interpretation Comments Chloride Lvl (test code = Chloride Lvl) 111 95-109 [place] 718872-03-27 10:12:00 Test Item Value Reference Range Interpretation Comments CO2 (test code = CO2) 21 24-32 [place] 718872-03-27 10:12:00 Test Item Value Reference Range Interpretation Comments AGAP (test code = AGAP) 10.6 10.0-20.0 [place] 718872-03-27 10:12:00 Test Item Value Reference Range Interpretation Comments Calcium Lvl (test code = Calcium Lvl) 8.6 8.5-10.5 [place] 718872-03-27 10:12:00 Test Item Value Reference Range Interpretation Comments eGFR (test code = eGFR) 116 [place] 357782-03-27 10:12:00 Test Item Value Reference Range Interpretation Comments WBC (test code = WBC) 8.2 3.7-10.4 [place] 357782-03-27 10:12:00 Test Item Value Reference Range Interpretation Comments RBC (test code = RBC) 5.14 4.70-6.10 [place] [address]-03-27 10:12:00 Test Item Value Reference Range Interpretation Comments Hgb (test code = Hgb) 15.5 14.0-18.0 [place] [address]-03-27 10:12:00 Test Item Value Reference Range Interpretation Comments Hct (test code = Hct) 46.0 42.0-54.0 [place] [address]-03-27 10:12:00 Test Item Value Reference Range Interpretation Comments MCV (test code = MCV) 89.5 80.0-94.0 [place] [address]-03-27 10:12:00 Test Item Value Reference Range Interpretation Comments MCH (test code = MCH) 30.2 pg 27.0-31.0 [place] [address]-03-27 10:12:00 Test Item Value Reference Range Interpretation Comments MCHC (test code = MCHC) 33.8 32.0-36.0 [place] [address]-03-27 10:12:00 Test Item Value Reference Range Interpretation Comments RDW (test code = RDW) 15.3 11.5-14.5 [place] [address]-03-27 10:12:00 Test Item Value Reference Range Interpretation Comments Platelet (test code = Platelet) 358 133-450 [place] 357782-03-27 10:12:00 Test Item Value Reference Range Interpretation Comments MPV (test code = MPV) 8.3 7.4-10.4 [place] 718872-03-27 10:12:00 Test Item Value Reference Range Interpretation Comments Glucose Lvl (test code = Glucose Lvl) 115 70-99 [place] 718872-03-27 10:12:00 Test Item Value Reference Range Interpretation Comments BUN (test code = BUN) 18 7-22 [place] 718872-03-27 10:12:00 Test Item Value Reference Range Interpretation Comments Creatinine Lvl (test code = Creatinine 0.78 0.50-1.40 Lvl) [place] 718872-03-27 10:12:00 Test Item Value Reference Range Interpretation Comments Sodium Lvl (test code = Sodium Lvl) 138 135-145 [place] 718872-03-27 10:12:00 Test Item Value Reference Range Interpretation Comments Potassium Lvl (test code = Potassium 4.6 3.5-5.1 Lvl) [place] 718872-03-27 10:12:00 Test Item Value Reference Range Interpretation Comments Chloride Lvl (test code = Chloride Lvl) 111 95-109 [place] 718872-03-27 10:12:00 Test Item Value Reference Range Interpretation Comments CO2 (test code = CO2) 21 24-32 [place] 718872-03-27 10:12:00 Test Item Value Reference Range Interpretation Comments AGAP (test code = AGAP) 10.6 10.0-20.0 [place] [address]-03-27 10:12:00 Test Item Value Reference Range Interpretation Comments Calcium Lvl (test code = Calcium Lvl) 8.6 8.5-10.5 [place] 718872-03-27 10:12:00 Test Item Value Reference Range Interpretation Comments eGFR (test code = eGFR) 116 [place] 357782-03-27 10:12:00 Test Item Value Reference Range Interpretation Comments WBC (test code = WBC) 8.2 3.7-10.4 [place] 357782-03-27 10:12:00 Test Item Value Reference Range Interpretation Comments RBC (test code = RBC) 5.14 4.70-6.10 [place] 357782-03-27 10:12:00 Test Item Value Reference Range Interpretation Comments Hgb (test code = Hgb) 15.5 14.0-18.0 [place] [address]-03-27 10:12:00 Test Item Value Reference Range Interpretation Comments Hct (test code = Hct) 46.0 42.0-54.0 [place] [address]-03-27 10:12:00 Test Item Value Reference Range Interpretation Comments MCV (test code = MCV) 89.5 80.0-94.0 [place] [address]-03-27 10:12:00 Test Item Value Reference Range Interpretation Comments MCH (test code = MCH) 30.2 pg 27.0-31.0 [place] [address]-03-27 10:12:00 Test Item Value Reference Range Interpretation Comments MCHC (test code = MCHC) 33.8 32.0-36.0 [place] [address]-03-27 10:12:00 Test Item Value Reference Range Interpretation Comments RDW (test code = RDW) 15.3 11.5-14.5 [place] 357782-03-27 10:12:00 Test Item Value Reference Range Interpretation Comments Platelet (test code = Platelet) 358 133-450 [facility] 10:12:00 Test Item Value Reference Range Interpretation Comments MPV (test code = MPV) 8.3 7.4-10.4 [facility]2022-03-27 10:12:00 Test Item Value Reference Range Interpretation Comments Glucose Lvl (test code = Glucose Lvl) 115 70-99 [facility]2022-03-27 10:12:00 Test Item Value Reference Range Interpretation Comments BUN (test code = BUN) 18 7-22 [place] 718872-03-27 10:12:00 Test Item Value Reference Range Interpretation Comments Creatinine Lvl (test code = Creatinine 0.78 0.50-1.40 Lvl) [facility]2022-03-27 10:12:00 Test Item Value Reference Range Interpretation Comments Sodium Lvl (test code = Sodium Lvl) 138 135-145 [place] 718872-03-27 10:12:00 Test Item Value Reference Range Interpretation Comments Potassium Lvl (test code = Potassium 4.6 3.5-5.1 Lvl) [place] 718872-03-27 10:12:00 Test Item Value Reference Range Interpretation Comments Chloride Lvl (test code = Chloride Lvl) 111 95-109 [place] 718872-03-27 10:12:00 Test Item Value Reference Range Interpretation Comments CO2 (test code = CO2) 21 24-32 [place] 718872-03-27 10:12:00 Test Item Value Reference Range Interpretation Comments AGAP (test code = AGAP) 10.6 10.0-20.0 [place] [address]-03-27 10:12:00 Test Item Value Reference Range Interpretation Comments Calcium Lvl (test code = Calcium Lvl) 8.6 8.5-10.5 [place] 718872-03-27 10:12:00 Test Item Value Reference Range Interpretation Comments eGFR (test code = eGFR) 116 [place] [address]-03-27 10:12:00 Test Item Value Reference Range Interpretation Comments WBC (test code = WBC) 8.2 3.7-10.4 [place] [address]-03-27 10:12:00 Test Item Value Reference Range Interpretation Comments RBC (test code = RBC) 5.14 4.70-6.10 [place] [address]-03-27 10:12:00 Test Item Value Reference Range Interpretation Comments Hgb (test code = Hgb) 15.5 14.0-18.0 [address]03-27 10:12:00 Test Item Value Reference Range Interpretation Comments Hct (test code = Hct) 46.0 42.0-54.0 [place] [address]-03-27 10:12:00 Test Item Value Reference Range Interpretation Comments MCV (test code = MCV) 89.5 80.0-94.0 [place] [address]-03-27 10:12:00 Test Item Value Reference Range Interpretation Comments MCH (test code = MCH) 30.2 pg 27.0-31.0 [place] 357782-03-27 10:12:00 Test Item Value Reference Range Interpretation Comments MCHC (test code = MCHC) 33.8 32.0-36.0 [place] 357782-03-27 10:12:00 Test Item Value Reference Range Interpretation Comments RDW (test code = RDW) 15.3 11.5-14.5 [place] 357782-03-27 10:12:00 Test Item Value Reference Range Interpretation Comments Platelet (test code = Platelet) 358 133-450 [place] 357782-03-27 10:12:00 Test Item Value Reference Range Interpretation Comments MPV (test code = MPV) 8.3 7.4-10.4 [place] 718872-03-27 10:12:00 Test Item Value Reference Range Interpretation Comments Glucose Lvl (test code = Glucose Lvl) 115 70-99 [place] 718872-03-27 10:12:00 Test Item Value Reference Range Interpretation Comments BUN (test code = BUN) 18 -22 [place] 718872-03-27 10:12:00 Test Item Value Reference Range Interpretation Comments Creatinine Lvl (test code = Creatinine 0.78 0.50-1.40 Lvl) [facility]2022-03-27 10:12:00 Test Item Value Reference Range Interpretation Comments Sodium Lvl (test code = Sodium Lvl) 138 135-145 [place] 718872-03-27 10:12:00 Test Item Value Reference Range Interpretation Comments Potassium Lvl (test code = Potassium 4.6 3.5-5.1 Lvl) [place] 718872-03-27 10:12:00 Test Item Value Reference Range Interpretation Comments Chloride Lvl (test code = Chloride Lvl) 111 95-109 [place] 718872-03-27 10:12:00 Test Item Value Reference Range Interpretation Comments CO2 (test code = CO2) 21 24-32 [place] 718872-03-27 10:12:00 Test Item Value Reference Range Interpretation Comments AGAP (test code = AGAP) 10.6 10.0-20.0 [place] 718872-03-27 10:12:00 Test Item Value Reference Range Interpretation Comments Calcium Lvl (test code = Calcium Lvl) 8.6 8.5-10.5 [facility]2022-03-27 10:12:00 Test Item Value Reference Range Interpretation Comments eGFR (test code = eGFR) 116 [facility]bk[facility]FFWGSO3317[facility]57-50 10:12:00 Test Item Value Reference Range Interpretation Comments WBC (test code = WBC) 8.2 3.7-10.4 [facility]XztbzvaHCUMEQJASP7106-96-85 10:12:00 Test Item Value Reference Range Interpretation Comments RBC (test code = RBC) 5.14 4.70-6.10 [facility]EbfzskwISZLYXTVRG5362-74-42 10:12:00 Test Item Value Reference Range Interpretation Comments Hgb (test code = Hgb) 15.5 14.0-18.0 [facility]TebhfvhZMGIJFUAQP3581-74-11 10:12:00 Test Item Value Reference Range Interpretation Comments Hct (test code = Hct) 46.0 42.0-54.0 [place] 357782-03-27 10:12:00 Test Item Value Reference Range Interpretation Comments MCV (test code = MCV) 89.5 80.0-94.0 [facility] HospitalQtzgbasOIUWPZQGQQ8158-56-97 10:12:00 Test Item Value Reference Range Interpretation Comments MCH (test code = MCH) 30.2 pg 27.0-31.0 [facility] HospitalUsbrhqeXLKLDOSCKD9392-32-47 10:12:00 Test Item Value Reference Range Interpretation Comments MCHC (test code = MCHC) 33.8 32.0-36.0 [place] 357782-03-27 10:12:00 Test Item Value Reference Range Interpretation Comments RDW (test code = RDW) 15.3 11.5-14.5 [place] 357782-03-27 10:12:00 Test Item Value Reference Range Interpretation Comments Platelet (test code = Platelet) 358 133-450 [facility] HospitalTrdkllfOWHKARVPWH0673-43-05 10:12:00 Test Item Value Reference Range Interpretation Comments MPV (test code = MPV) 8.3 7.4-10.4 [facility]2022-03-27 10:12:00 Test Item Value Reference Range Interpretation Comments Glucose Lvl (test code = Glucose Lvl) 115 70-99 [place] 718872-03-27 10:12:00 Test Item Value Reference Range Interpretation Comments BUN (test code = BUN) 18 7-22 [place] 718872-03-27 10:12:00 Test Item Value Reference Range Interpretation Comments Creatinine Lvl (test code = Creatinine 0.78 0.50-1.40 Lvl) [place] 718872-03-27 10:12:00 Test Item Value Reference Range Interpretation Comments Sodium Lvl (test code = Sodium Lvl) 138 135-145 [place] 718872-03-27 10:12:00 Test Item Value Reference Range Interpretation Comments Potassium Lvl (test code = Potassium 4.6 3.5-5.1 Lvl) [place] 718872-03-27 10:12:00 Test Item Value Reference Range Interpretation Comments Chloride Lvl (test code = Chloride Lvl) 111 95-109 [place] 718872-03-27 10:12:00 Test Item Value Reference Range Interpretation Comments CO2 (test code = CO2) 21 24-32 [place] 718872-03-27 10:12:00 Test Item Value Reference Range Interpretation Comments AGAP (test code = AGAP) 10.6 10.0-20.0 [place] 718872-03-27 10:12:00 Test Item Value Reference Range Interpretation Comments Calcium Lvl (test code = Calcium Lvl) 8.6 8.5-10.5 [place] 718872-03-27 10:12:00 Test Item Value Reference Range Interpretation Comments eGFR (test code = eGFR) 116 [place] 357782-03-27 10:12:00 Test Item Value Reference Range Interpretation Comments WBC (test code = WBC) 8.2 3.7-10.4 [place] [address]-03-27 10:12:00 Test Item Value Reference Range Interpretation Comments RBC (test code = RBC) 5.14 4.70-6.10 [place] [address]-03-27 10:12:00 Test Item Value Reference Range Interpretation Comments Hgb (test code = Hgb) 15.5 14.0-18.0 [place] [address]-03-27 10:12:00 Test Item Value Reference Range Interpretation Comments Hct (test code = Hct) 46.0 42.0-54.0 [place] [address]-03-27 10:12:00 Test Item Value Reference Range Interpretation Comments MCV (test code = MCV) 89.5 80.0-94.0 [place] [address]-03-27 10:12:00 Test Item Value Reference Range Interpretation Comments MCH (test code = MCH) 30.2 pg 27.0-31.0 [place] 357782-03-27 10:12:00 Test Item Value Reference Range Interpretation Comments MCHC (test code = MCHC) 33.8 32.0-36.0 [place] [address]-03-27 10:12:00 Test Item Value Reference Range Interpretation Comments RDW (test code = RDW) 15.3 11.5-14.5 [place] [address]-03-27 10:12:00 Test Item Value Reference Range Interpretation Comments Platelet (test code = Platelet) 358 133-450 [place] 357782-03-27 10:12:00 Test Item Value Reference Range Interpretation Comments MPV (test code = MPV) 8.3 7.4-10.4 [place] 718872-03-27 10:12:00 Test Item Value Reference Range Interpretation Comments Glucose Lvl (test code = Glucose Lvl) 115 70-99 [place] 718872-03-27 10:12:00 Test Item Value Reference Range Interpretation Comments BUN (test code = BUN) 18 7-22 [place] 718872-03-27 10:12:00 Test Item Value Reference Range Interpretation Comments Creatinine Lvl (test code = Creatinine 0.78 0.50-1.40 Lvl) [facility]2022-03-27 10:12:00 Test Item Value Reference Range Interpretation Comments Sodium Lvl (test code = Sodium Lvl) 138 135-145 [place] 718872-03-27 10:12:00 Test Item Value Reference Range Interpretation Comments Potassium Lvl (test code = Potassium 4.6 3.5-5.1 Lvl) [place] 718872-03-27 10:12:00 Test Item Value Reference Range Interpretation Comments Chloride Lvl (test code = Chloride Lvl) 111 95-109 [place] 718872-03-27 10:12:00 Test Item Value Reference Range Interpretation Comments CO2 (test code = CO2) 21 24-32 [facility]2022-03-27 10:12:00 Test Item Value Reference Range Interpretation Comments AGAP (test code = AGAP) 10.6 10.0-20.0 [facility]2022-03-27 10:12:00 Test Item Value Reference Range Interpretation Comments Calcium Lvl (test code = Calcium Lvl) 8.6 8.5-10.5 [facility]2022-03-27 10:12:00 Test Item Value Reference Range Interpretation Comments eGFR (test code = eGFR) 116 [facility] HospitalCeovmjeBNIWNCDAEX3015-27-85 10:12:00 Test Item Value Reference Range Interpretation Comments WBC (test code = WBC) 8.2 3.7-10.4 [facility] HospitalQkksrxaOECYXSJVUV0973-04-29 10:12:00 Test Item Value Reference Range Interpretation Comments RBC (test code = RBC) 5.14 4.70-6.10 [facility] HospitalUclfqzdQQMDUBLAXF9537-18-95 10:12:00 Test Item Value Reference Range Interpretation Comments Hgb (test code = Hgb) 15.5 14.0-18.0 [facility] HospitalBvqticbRDASRYJCNF1357-23-95 10:12:00 Test Item Value Reference Range Interpretation Comments Hct (test code = Hct) 46.0 42.0-54.0 [facility] HospitalHyoytoyMFAPFXOXNA8580-60-27 10:12:00 Test Item Value Reference Range Interpretation Comments MCV (test code = MCV) 89.5 80.0-94.0 [place] 357782-03-27 10:12:00 Test Item Value Reference Range Interpretation Comments MCH (test code = MCH) 30.2 pg 27.0-31.0 [place] 357782-03-27 10:12:00 Test Item Value Reference Range Interpretation Comments MCHC (test code = MCHC) 33.8 32.0-36.0 [place] 357782-03-27 10:12:00 Test Item Value Reference Range Interpretation Comments RDW (test code = RDW) 15.3 11.5-14.5 [place] 357782-03-27 10:12:00 Test Item Value Reference Range Interpretation Comments Platelet (test code = Platelet) 358 133-450 [place] 357782-03-27 10:12:00 Test Item Value Reference Range Interpretation Comments MPV (test code = MPV) 8.3 7.4-10.4 [facility]2022-03-27 06:53:00 Test Item Value Reference Range Interpretation Comments Glucose Lvl (test code = Glucose Lvl) 167 70-99 [place] 718872-03-27 06:53:00 Test Item Value Reference Range Interpretation Comments BUN (test code = BUN) 16 02-02 [place] 718872-03-27 06:53:00 Test Item Value Reference Range Interpretation Comments Creatinine Lvl (test code = Creatinine 0.99 0.50-1.40 Lvl) [place] 718872-03-27 06:53:00 Test Item Value Reference Range Interpretation Comments Sodium Lvl (test code = Sodium Lvl) 141 135-145 [place] 718872-03-27 06:53:00 Test Item Value Reference Range Interpretation Comments Potassium Lvl (test code = Potassium 4.5 3.5-5.1 Lvl) [facility]2022-03-27 06:53:00 Test Item Value Reference Range Interpretation Comments Chloride Lvl (test code = Chloride Lvl) 111 95-109 [facility]2022-03-27 06:53:00 Test Item Value Reference Range Interpretation Comments CO2 (test code = CO2) 22 24-32 [place] 718872-03-27 06:53:00 Test Item Value Reference Range Interpretation Comments AGAP (test code = AGAP) 12.5 10.0-20.0 [place] 718872-03-27 06:53:00 Test Item Value Reference Range Interpretation Comments Calcium Lvl (test code = Calcium Lvl) 8.6 8.5-10.5 [place] 718872-03-27 06:53:00 Test Item Value Reference Range Interpretation Comments eGFR (test code = eGFR) 98 [place] 718872-03-27 06:53:00 Test Item Value Reference Range Interpretation Comments Glucose Lvl (test code = Glucose Lvl) 167 70-99 [facility]2022-03-27 06:53:00 Test Item Value Reference Range Interpretation Comments BUN (test code = BUN) 16 7- [place] 718872-03-27 06:53:00 Test Item Value Reference Range Interpretation Comments Creatinine Lvl (test code = Creatinine 0.99 0.50-1.40 Lvl) [place] 718872-03-27 06:53:00 Test Item Value Reference Range Interpretation Comments Sodium Lvl (test code = Sodium Lvl) 141 135-145 [place] 718872-03-27 06:53:00 Test Item Value Reference Range Interpretation Comments Potassium Lvl (test code = Potassium 4.5 3.5-5.1 Lvl) [place] 718872-03-27 06:53:00 Test Item Value Reference Range Interpretation Comments Chloride Lvl (test code = Chloride Lvl) 111 95-109 [place] 718872-03-27 06:53:00 Test Item Value Reference Range Interpretation Comments CO2 (test code = CO2) 22 24- [place] 718872-03-27 06:53:00 Test Item Value Reference Range Interpretation Comments AGAP (test code = AGAP) 12.5 10.0-20.0 [place] 718872-03-27 06:53:00 Test Item Value Reference Range Interpretation Comments Calcium Lvl (test code = Calcium Lvl) 8.6 8.5-10.5 [place] 718872-03-27 06:53:00 Test Item Value Reference Range Interpretation Comments eGFR (test code = eGFR) 98 [place] 718872-03-27 06:53:00 Test Item Value Reference Range Interpretation Comments Glucose Lvl (test code = Glucose Lvl) 167 70-99 [place] 718872-03-27 06:53:00 Test Item Value Reference Range Interpretation Comments BUN (test code = BUN) 16 -22 [place] 718872-03-27 06:53:00 Test Item Value Reference Range Interpretation Comments Creatinine Lvl (test code = Creatinine 0.99 0.50-1.40 Lvl) [place] 718872-03-27 06:53:00 Test Item Value Reference Range Interpretation Comments Sodium Lvl (test code = Sodium Lvl) 141 135-145 [place] 718872-03-27 06:53:00 Test Item Value Reference Range Interpretation Comments Potassium Lvl (test code = Potassium 4.5 3.5-5.1 Lvl) [place] 718872-03-27 06:53:00 Test Item Value Reference Range Interpretation Comments Chloride Lvl (test code = Chloride Lvl) 111 95-109 [place] 718872-03-27 06:53:00 Test Item Value Reference Range Interpretation Comments CO2 (test code = CO2) 22 - [place] 718872-03-27 06:53:00 Test Item Value Reference Range Interpretation Comments AGAP (test code = AGAP) 12.5 10.0-20.0 [place] 718872-03-27 06:53:00 Test Item Value Reference Range Interpretation Comments Calcium Lvl (test code = Calcium Lvl) 8.6 8.5-10.5 [place] 718872-03-27 06:53:00 Test Item Value Reference Range Interpretation Comments eGFR (test code = eGFR) 98 [place] 718872-03-27 06:53:00 Test Item Value Reference Range Interpretation Comments Glucose Lvl (test code = Glucose Lvl) 167 70-99 [place] 718872-03-27 06:53:00 Test Item Value Reference Range Interpretation Comments BUN (test code = BUN) 16 7-22 [place] 718872-03-27 06:53:00 Test Item Value Reference Range Interpretation Comments Creatinine Lvl (test code = Creatinine 0.99 0.50-1.40 Lvl) [place] 718872-03-27 06:53:00 Test Item Value Reference Range Interpretation Comments Sodium Lvl (test code = Sodium Lvl) 141 135-145 [place] 718872-03-27 06:53:00 Test Item Value Reference Range Interpretation Comments Potassium Lvl (test code = Potassium 4.5 3.5-5.1 Lvl) [place] 718872-03-27 06:53:00 Test Item Value Reference Range Interpretation Comments Chloride Lvl (test code = Chloride Lvl) 111 95-109 [place] 718872-03-27 06:53:00 Test Item Value Reference Range Interpretation Comments CO2 (test code = CO2) 22 -32 [place] 718872-03-27 06:53:00 Test Item Value Reference Range Interpretation Comments AGAP (test code = AGAP) 12.5 10.0-20.0 [place] 718872-03-27 06:53:00 Test Item Value Reference Range Interpretation Comments Calcium Lvl (test code = Calcium Lvl) 8.6 8.5-10.5 [place] 718872-03-27 06:53:00 Test Item Value Reference Range Interpretation Comments eGFR (test code = eGFR) 98 [place] 718872-03-27 06:53:00 Test Item Value Reference Range Interpretation Comments Glucose Lvl (test code = Glucose Lvl) 167 70-99 [place] 718872-03-27 06:53:00 Test Item Value Reference Range Interpretation Comments BUN (test code = BUN) 16 7-22 [place] 718872-03-27 06:53:00 Test Item Value Reference Range Interpretation Comments Creatinine Lvl (test code = Creatinine 0.99 0.50-1.40 Lvl) [place] 718872-03-27 06:53:00 Test Item Value Reference Range Interpretation Comments Sodium Lvl (test code = Sodium Lvl) 141 135-145 [place] 718872-03-27 06:53:00 Test Item Value Reference Range Interpretation Comments Potassium Lvl (test code = Potassium 4.5 3.5-5.1 Lvl) [place] 718872-03-27 06:53:00 Test Item Value Reference Range Interpretation Comments Chloride Lvl (test code = Chloride Lvl) 111 95-109 [place] 718872-03-27 06:53:00 Test Item Value Reference Range Interpretation Comments CO2 (test code = CO2) 22 24-32 [place] 718872-03-27 06:53:00 Test Item Value Reference Range Interpretation Comments AGAP (test code = AGAP) 12.5 10.0-20.0 [place] 718872-03-27 06:53:00 Test Item Value Reference Range Interpretation Comments Calcium Lvl (test code = Calcium Lvl) 8.6 8.5-10.5 [place] 718872-03-27 06:53:00 Test Item Value Reference Range Interpretation Comments eGFR (test code = eGFR) 98 [place] 718872-03-27 06:53:00 Test Item Value Reference Range Interpretation Comments Glucose Lvl (test code = Glucose Lvl) 167 70-99 [place] 718872-03-27 06:53:00 Test Item Value Reference Range Interpretation Comments BUN (test code = BUN) 16 02-02 [place] 718872-03-27 06:53:00 Test Item Value Reference Range Interpretation Comments Creatinine Lvl (test code = Creatinine 0.99 0.50-1.40 Lvl) [place] 718872-03-27 06:53:00 Test Item Value Reference Range Interpretation Comments Sodium Lvl (test code = Sodium Lvl) 141 135-145 [place] 718872-03-27 06:53:00 Test Item Value Reference Range Interpretation Comments Potassium Lvl (test code = Potassium 4.5 3.5-5.1 Lvl) [place] 718872-03-27 06:53:00 Test Item Value Reference Range Interpretation Comments Chloride Lvl (test code = Chloride Lvl) 111 95-109 [place] 718872-03-27 06:53:00 Test Item Value Reference Range Interpretation Comments CO2 (test code = CO2) - [place] 718872-03-27 06:53:00 Test Item Value Reference Range Interpretation Comments AGAP (test code = AGAP) 12.5 10.0-20.0 [place] 718872-03-27 06:53:00 Test Item Value Reference Range Interpretation Comments Calcium Lvl (test code = Calcium Lvl) 8.6 8.5-10.5 [place] 718872-03-27 06:53:00 Test Item Value Reference Range Interpretation Comments eGFR (test code = eGFR) 98 [place] 718872-03-27 06:53:00 Test Item Value Reference Range Interpretation Comments Glucose Lvl (test code = Glucose Lvl) 167 70-99 [place] 718872-03-27 06:53:00 Test Item Value Reference Range Interpretation Comments BUN (test code = BUN) 16 02-02 [place] [id number] 06:53:00 Test Item Value Reference Range Interpretation Comments Creatinine Lvl (test code = Creatinine 0.99 0.50-1.40 Lvl) [place] 718872-03-27 06:53:00 Test Item Value Reference Range Interpretation Comments Sodium Lvl (test code = Sodium Lvl) 141 135-145 [facility] [id number] 06:53:00 Test Item Value Reference Range Interpretation Comments Potassium Lvl (test code = Potassium 4.5 3.5-5.1 Lvl) [facility] [id number] 06:53:00 Test Item Value Reference Range Interpretation Comments Chloride Lvl (test code = Chloride Lvl) 111 95-109 [facility] [id number] 06:53:00 Test Item Value Reference Range Interpretation Comments CO2 (test code = CO2) 22 24-32 [facility] [id number] 06:53:00 Test Item Value Reference Range Interpretation Comments AGAP (test code = AGAP) 12.5 10.0-20.0 [facility] [id number] 06:53:00 Test Item Value Reference Range Interpretation Comments Calcium Lvl (test code = Calcium Lvl) 8.6 8.5-10.5 [facility] [id number] 06:53:00 Test Item Value Reference Range Interpretation Comments eGFR (test code = eGFR) 98 [facility]inteannNITROFURANTOIN:SUSC:PT:ISOLATE:ORDQN:[id number] 22:59:00 Test Item Value Reference Range Interpretation Comments Culture: Urine (test >100,000 CFU/mL Proteus code = Culture: mirabilis >100,000 CFU/mL Urine) Providencia stuartii [facility] HermannNITROFURANTOIN:SUSC:PT:ISOLATE:ORDQN:[id number] 22:59:00 Test Item Value Reference Range Interpretation Comments Providencia stuartii Providencia stuartii (test code = Providencia stuartii) [facility] HermannNITROFURANTOIN:SUSC:PT:ISOLATE:ORDQN:[id number] 22:59:00 Test Item Value Reference Range Interpretation Comments Proteus mirabilis (test Proteus mirabilis code = Proteus mirabilis) [facility]inteannCulture: [id number] 22:59:00 Test Item Value Reference Range Interpretation Comments Culture: Urine (test Holding For Better code = Culture: Urine) Growth [facility] HermannNITROFURANTOIN:SUSC:PT:ISOLATE:ORDQN:[id number] 22:59:00 Test Item Value Reference Range Interpretation Comments Culture: Urine (test >100,000 CFU/mL Proteus code = Culture: mirabilis >100,000 CFU/mL Urine) Providencia stuartii [facility]annN[facility]URANTOIN:SUSC:PT:ISOLATE:ORDQN:[id number] 22:59:00 Test Item Value Reference Range Interpretation Comments Providencia stuartii Providencia stuartii (test code = Providencia stuartii) [facility]annNITROFURANTOIN:SUSC:PT:ISOLATE:ORDQN:[id number] 22:59:00 Test Item Value Reference Range Interpretation Comments Proteus mirabilis (test Proteus mirabilis code = Proteus mirabilis) [facility]annCulture: [id number] 22:59:00 Test Item Value Reference Range Interpretation Comments Culture: Urine (test Holding For Better code = Culture: Urine) Growth [facility]annNITROFURANTOIN:SUSC:PT:ISOLATE:ORDQN:[id number] 22:59:00 Test Item Value Reference Range Interpretation Comments Culture: Urine (test >100,000 CFU/mL Proteus code = Culture: mirabilis >100,000 CFU/mL Urine) Providencia stuartii [facility]annNITROFURANTOIN:SUSC:PT:ISOLATE:ORDQN:[id number] 22:59:00 Test Item Value Reference Range Interpretation Comments Providencia stuartii Providencia stuartii (test code = Providencia stuartii) [facility]annNITROFURANTOIN:SUSC:PT:ISOLATE:ORDQN:[id number] 22:59:00 Test Item Value Reference Range Interpretation Comments Proteus mirabilis (test Proteus mirabilis code = Proteus mirabilis) [facility]annCulture: [id number] 22:59:00 Test Item Value Reference Range Interpretation Comments Culture: Urine (test Holding For Better code = Culture: Urine) Growth [facility]annNITROFURANTOIN:SUSC:PT:ISOLATE:ORDQN:[id number] 22:59:00 Test Item Value Reference Range Interpretation Comments Culture: Urine (test >100,000 CFU/mL Proteus code = Culture: mirabilis >100,000 CFU/mL Urine) Providencia stuartii [facility]annNITROFURANTOIN:SUSC:PT:ISOLATE:ORDQN:[id number] 22:59:00 Test Item Value Reference Range Interpretation Comments Providencia stuartii Providencia stuartii (test code = Providencia stuartii) [facility]annNITROFURANTOIN:SUSC:PT:ISOLATE:ORDQN:[id number] 22:59:00 Test Item Value Reference Range Interpretation Comments Proteus mirabilis (test Proteus mirabilis code = Proteus mirabilis) [facility] HermannCulture: [id number] 22:59:00 Test Item Value Reference Range Interpretation Comments Culture: Urine (test Holding For Better code = Culture: Urine) Growth [facility]annNITROFURANTOIN:SUSC:PT:ISOLATE:ORDQN:[id number] 22:59:00 Test Item Value Reference Range Interpretation Comments Culture: Urine (test >100,000 CFU/mL Proteus code = Culture: mirabilis >100,000 CFU/mL Urine) Providencia stuartii [facility]annNITROFURANTOIN:SUSC:PT:ISOLATE:ORDQN:[id number] 22:59:00 Test Item Value Reference Range Interpretation Comments Providencia stuartii Providencia stuartii (test code = Providencia stuartii) [facility] HermannNITROFURANTOIN:SUSC:PT:ISOLATE:ORDQN:[id number] 22:59:00 Test Item Value Reference Range Interpretation Comments Proteus mirabilis (test Proteus mirabilis code = Proteus mirabilis) [facility] HermannCulture: [id number] 22:59:00 Test Item Value Reference Range Interpretation Comments Culture: Urine (test Holding For Better code = Culture: Urine) Growth [facility]annNITROFURANTOIN:SUSC:PT:ISOLATE:ORDQN:[id number] 22:59:00 Test Item Value Reference Range Interpretation Comments Culture: Urine (test >100,000 CFU/mL Proteus code = Culture: mirabilis >100,000 CFU/mL Urine) Providencia stuartii [facility]annNITROFURANTOIN:SUSC:PT:ISOLATE:ORDQN:[id number] 22:59:00 Test Item Value Reference Range Interpretation Comments Providencia stuartii Providencia stuartii (test code = Providencia stuartii) [facility] HermannNITROFURANTOIN:SUSC:PT:ISOLATE:ORDQN:[id number] 22:59:00 Test Item Value Reference Range Interpretation Comments Proteus mirabilis (test Proteus mirabilis code = Proteus mirabilis) [facility]inteannCulture: [id number] 22:59:00 Test Item Value Reference Range Interpretation Comments Culture: Urine (test Holding For Better code = Culture: Urine) Growth [facility] HermannNITROFURANTOIN:SUSC:PT:ISOLATE:ORDQN:[id number] 22:59:00 Test Item Value Reference Range Interpretation Comments Culture: Urine (test >100,000 CFU/mL Proteus code = Culture: mirabilis >100,000 CFU/mL Urine) Providencia stuartii [facility] HermannNITROFURANTOIN:SUSC:PT:ISOLATE:ORDQN:[id number] 22:59:00 Test Item Value Reference Range Interpretation Comments Providencia stuartii Providencia stuartii (test code = Providencia stuartii) [facility]annNITROFURANTOIN:SUSC:PT:ISOLATE:ORDQN:[id number] 22:59:00 Test Item Value Reference Range Interpretation Comments Proteus mirabilis (test Proteus mirabilis code = Proteus mirabilis) [facility]inteannCulture: [id number] 22:59:00 Test Item Value Reference Range Interpretation Comments Culture: Urine (test Holding For Better code = Culture: Urine) Growth [facility] InternationalannJobHoreca [id number] 21:03:00 Test Item Value Reference Range Interpretation Comments Glucose Lvl (test code = Glucose Lvl) 126 70-99 [facility] InternationalJason [place] 279142-03-26 21:03:00 Test Item Value Reference Range Interpretation Comments BUN (test code = BUN) 16 7-22 [place] 718872-03-26 21:03:00 Test Item Value Reference Range Interpretation Comments Creatinine Lvl (test code = Creatinine 0.76 0.50-1.40 Lvl) [place] 718872-03-26 21:03:00 Test Item Value Reference Range Interpretation Comments Sodium Lvl (test code = Sodium Lvl) 140 135-145 [place] 718872-03-26 21:03:00 Test Item Value Reference Range Interpretation Comments Potassium Lvl (test code = Potassium 3.3 3.5-5.1 Lvl) [place] 718872-03-26 21:03:00 Test Item Value Reference Range Interpretation Comments Chloride Lvl (test code = Chloride Lvl) 111 95-109 [place] 718872-03-26 21:03:00 Test Item Value Reference Range Interpretation Comments CO2 (test code = CO2) 22 24-32 [place] 718872-03-26 21:03:00 Test Item Value Reference Range Interpretation Comments Calcium Lvl (test code = Calcium Lvl) 8.5 8.5-10.5 [place] 718872-03-26 21:03:00 Test Item Value Reference Range Interpretation Comments AGAP (test code = AGAP) 10.3 10.0-20.0 [place] 718872-03-26 21:03:00 Test Item Value Reference Range Interpretation Comments eGFR (test code = eGFR) 117 [place] 718872-03-26 21:03:00 Test Item Value Reference Range Interpretation Comments Lactic Acid Lvl (test code = Lactic 1.1 0.5-2.2 Acid Lvl) [place] 357782-03-26 21:03:00 Test Item Value Reference Range Interpretation Comments Segs (test code = Segs) 68.9 45.0-75.0 [place] 357782-03-26 21:03:00 Test Item Value Reference Range Interpretation Comments Lymphocytes (test code = Lymphocytes) 20.4 20.0-40.0 [place] 357782-03-26 21:03:00 Test Item Value Reference Range Interpretation Comments Monocytes (test code = Monocytes) 8.2 2.0-12.0 [place] 357782-03-26 21:03:00 Test Item Value Reference Range Interpretation Comments Eosinophils (test code = 2.2 See_Comment [A utomated message] The Eosinophils) system which ge nerated this result tra nsmitted reference range : <=4.0. The reference r boubacar was not used to int erpret this result as normal/abnormal . [place] 357782-03-26 21:03:00 Test Item Value Reference Range Interpretation Comments Basophils (test code = 0.3 See_Comment [Aut omated message] The Basophils) system which ge nerated this result tra nsmitted reference range : <=1.0. The reference r boubacar was not used to int erpret this result as normal/abnormal . [place] 357782-03-26 21:03:00 Test Item Value Reference Range Interpretation Comments Neutrophils # (test code = Neutrophils 5.5 1.5-8.1 #) [place] 357782-03-26 21:03:00 Test Item Value Reference Range Interpretation Comments Lymphocytes # (test code = Lymphocytes 1.6 1.0-5.5 #) [place] 357782-03-26 21:03:00 Test Item Value Reference Range Interpretation Comments Monocytes # (test code 0.7 See_Comment [Aut omated message] The = Monocytes #) system which generated this result tra nsmitted reference range : <=0.8. The reference r boubacar was not used to int erpret this result as normal/abnormal . [place] 357782-03-26 21:03:00 Test Item Value Reference Range Interpretation Comments Eosinophils # (test code 0.2 See_Comment [A utomated message] The = Eosinophils #) system whic h generated this result tra nsmitted reference range : <=0.5. The reference r boubacar was not used to int erpret this result as normal/abnormal . [place] 357782-03-26 21:03:00 Test Item Value Reference Range Interpretation Comments WBC (test code = WBC) 8.0 3.7-10.4 [place] 357782-03-26 21:03:00 Test Item Value Reference Range Interpretation Comments RBC (test code = RBC) 5.37 4.70-6.10 [id number] 21:03:00 Test Item Value Reference Range Interpretation Comments Hgb (test code = Hgb) 15.9 14.0-18.0 [facility] Hos[id number] 21:03:00 Test Item Value Reference Range Interpretation Comments Hct (test code = Hct) 47.3 42.0-54.0 [facility] HospitalMwgwxujCGNBILMXIP1609-11-54 21:03:00 Test Item Value Reference Range Interpretation Comments MCV (test code = MCV) 88.1 80.0-94.0 [facility] HospitalPdkwobwAKITXWOWUP1707-13-85 21:03:00 Test Item Value Reference Range Interpretation Comments MCH (test code = MCH) 29.6 pg 27.0-31.0 [facility] Hos[id number] 21:03:00 Test Item Value Reference Range Interpretation Comments MCHC (test code = MCHC) 33.6 32.0-36.0 [facility] Hos[id number] 21:03:00 Test Item Value Reference Range Interpretation Comments RDW (test code = RDW) 15.3 11.5-14.5 [facility] Ho[id number] 21:03:00 Test Item Value Reference Range Interpretation Comments Platelet (test code = Platelet) 370 133-450 [facility] Ho[id number] 21:03:00 Test Item Value Reference Range Interpretation Comments MPV (test code = MPV) 8.1 7.4-10.4 [facility]2022-03-26 21:03:00 Test Item Value Reference Range Interpretation Comments UA Comment 1 (test Suboptimal specimen code = UA Comment 1) received. Results may be inaccurate due to the age of the specimen. Interpret results with caution. [facility] AND [id number] 21:03:00 Test Item Value Reference Range Interpretation Comments UA Color (test code = Yellow *NA*(10/07/21 UA Color) 4:03 PM) [facility] AND [id number] 21:03:00 Test Item Value Reference Range Interpretation Comments UA Turbidity (test code Slight *ABN*(10/07/21 = UA Turbidity) 4:03 PM) [facility] AND [id number] 21:03:00 Test Item Value Reference Range Interpretation Comments UA Spec Grav (test code = UA Spec 1.015 1 Grav) [facility] AND [id number] 21:03:00 Test Item Value Reference Range Interpretation Comments UA pH (test code = UA pH) 5.0 1 5.0-8.0 [facility] AND [id number] 21:03:00 Test Item Value Reference Range Interpretation Comments UA Protein (test code = UA Negative mg/dL Protein) [facility] AND [id number] 21:03:00 Test Item Value Reference Range Interpretation Comments UA Glucose (test code = UA Negative mg/dL Glucose) [facility] AND [id number] 21:03:00 Test Item Value Reference Range Interpretation Comments UA Ketones (test code = UA Negative mg/dL Ketones) [facility] AND [id number] 21:03:00 Test Item Value Reference Range Interpretation Comments UA Bili (test code = Negative *NA*(10/07/21 UA Bili) 4:03 PM) [facility] AND [id number] 21:03:00 Test Item Value Reference Range Interpretation Comments UA Blood (test code = Negative (10/07/21 4:03 UA Blood) PM) [facility] AND [id number] 21:03:00 Test Item Value Reference Range Interpretation Comments UA Urobilinogen (test code = UA no gt 0.1-1.0 Urobilinogen) [facility] AND [id number] 21:03:00 Test Item Value Reference Range Interpretation Comments UA Nitrite (test code Negative (10/07/21 4:03 = UA Nitrite) PM) [facility] AND [id number] 21:03:00 Test Item Value Reference Range Interpretation Comments UA Leuk Est (test code Large *ABN*(10/07/21 = UA Leuk Est) 4:03 PM) [facility] AND [id number] 21:03:00 Test Item Value Reference Range Interpretation Comments UA WBC (test code = 64 See_Comment [Automa lester message] The UA WBC) system which ge nerated this result transmit lester reference range : <=5. The reference range was not used to interpr et this result as dany l/abnormal. [facility] AND [id number] 21:03:00 Test Item Value Reference Range Interpretation Comments UA RBC (test code = 2 See_Comment [Automa lester message] The UA RBC) system which ge nerated this result transmit lester reference range : <=2. The reference range was not used to interpr et this result as dany l/abnormal. [facility] AND [id number] 21:03:00 Test Item Value Reference Range Interpretation Comments UA Mucus (test code = UA Mucus) Few /LPF [facility] AND [id number] 21:03:00 Test Item Value Reference Range Interpretation Comments UA Sq Epi (test code = UA Sq Epi) None Seen [facility]2022-03-26 21:03:00 Test Item Value Reference Range Interpretation Comments Glucose Lvl (test code = Glucose Lvl) 126 70-99 [facility]2022-03-26 21:03:00 Test Item Value Reference Range Interpretation Comments BUN (test code = BUN) 16 7-22 [facility]2022-03-26 21:03:00 Test Item Value Reference Range Interpretation Comments Creatinine Lvl (test code = Creatinine 0.76 0.50-1.40 Lvl) [facility]2022-03-26 21:03:00 Test Item Value Reference Range Interpretation Comments Sodium Lvl (test code = Sodium Lvl) 140 135-145 [facility]2022-03-26 21:03:00 Test Item Value Reference Range Interpretation Comments Potassium Lvl (test code = Potassium 3.3 3.5-5.1 Lvl) [facility]2022-03-26 21:03:00 Test Item Value Reference Range Interpretation Comments Chloride Lvl (test code = Chloride Lvl) 111 95-109 [facility]2022-03-26 21:03:00 Test Item Value Reference Range Interpretation Comments CO2 (test code = CO2) 22 24-32 [facility]2022-03-26 21:03:00 Test Item Value Reference Range Interpretation Comments Calcium Lvl (test code = Calcium Lvl) 8.5 8.5-10.5 [facility]2022-03-26 21:03:00 Test Item Value Reference Range Interpretation Comments AGAP (test code = AGAP) 10.3 10.0-20.0 [place] 718872-03-26 21:03:00 Test Item Value Reference Range Interpretation Comments eGFR (test code = eGFR) 117 [place] 718872-03-26 21:03:00 Test Item Value Reference Range Interpretation Comments Lactic Acid Lvl (test code = Lactic 1.1 0.5-2.2 Acid Lvl) [place] 357782-03-26 21:03:00 Test Item Value Reference Range Interpretation Comments Segs (test code = Segs) 68.9 45.0-75.0 [place] 357782-03-26 21:03:00 Test Item Value Reference Range Interpretation Comments Lymphocytes (test code = Lymphocytes) 20.4 20.0-40.0 [place] 357782-03-26 21:03:00 Test Item Value Reference Range Interpretation Comments Monocytes (test code = Monocytes) 8.2 2.0-12.0 [place] 357782-03-26 21:03:00 Test Item Value Reference Range Interpretation Comments Eosinophils (test code = 2.2 See_Comment [A utomated message] The Eosinophils) system which ge nerated this result tra nsmitted reference range : <=4.0. The reference r boubacar was not used to int erpret this result as normal/abnormal . [place] 17853-03-26 21:03:00 Test Item Value Reference Range Interpretation Comments Basophils (test code = 0.3 See_Comment [Aut omated message] The Basophils) system which ge nerated this result tra nsmitted reference range : <=1.0. The reference r boubacar was not used to int erpret this result as normal/abnormal . [place] 357782-03-26 21:03:00 Test Item Value Reference Range Interpretation Comments Neutrophils # (test code = Neutrophils 5.5 1.5-8.1 #) [place] 357782-03-26 21:03:00 Test Item Value Reference Range Interpretation Comments Lymphocytes # (test code = Lymphocytes 1.6 1.0-5.5 #) [place] 17853-03-26 21:03:00 Test Item Value Reference Range Interpretation Comments Monocytes # (test code 0.7 See_Comment [Aut omated message] The = Monocytes #) system which generated this result tra nsmitted reference range : <=0.8. The reference r boubacar was not used to int erpret this result as normal/abnormal . [facility] HospitalUftlabqQABBZIUENT2811-87-30 21:03:00 Test Item Value Reference Range Interpretation Comments Eosinophils # (test code 0.2 See_Comment [A utomated message] The = Eosinophils #) system whic h generated this result tra nsmitted reference range : <=0.5. The reference r boubacar was not used to int erpret this result as normal/abnormal . [facility] Hos[id number] 21:03:00 Test Item Value Reference Range Interpretation Comments WBC (test code = WBC) 8.0 3.7-10.4 [place] 357782-03-26 21:03:00 Test Item Value Reference Range Interpretation Comments RBC (test code = RBC) 5.37 4.70-6.10 [place] 357782-03-26 21:03:00 Test Item Value Reference Range Interpretation Comments Hgb (test code = Hgb) 15.9 14.0-18.0 [place] 357782-03-26 21:03:00 Test Item Value Reference Range Interpretation Comments Hct (test code = Hct) 47.3 42.0-54.0 [place] 357782-03-26 21:03:00 Test Item Value Reference Range Interpretation Comments MCV (test code = MCV) 88.1 80.0-94.0 [place] 357782-03-26 21:03:00 Test Item Value Reference Range Interpretation Comments MCH (test code = MCH) 29.6 pg 27.0-31.0 [facility] Hos[id number] 21:03:00 Test Item Value Reference Range Interpretation Comments MCHC (test code = MCHC) 33.6 32.0-36.0 [place] 357782-03-26 21:03:00 Test Item Value Reference Range Interpretation Comments RDW (test code = RDW) 15.3 11.5-14.5 [place] 357782-03-26 21:03:00 Test Item Value Reference Range Interpretation Comments Platelet (test code = Platelet) 370 133-450 [facility] Hos[id number] 21:03:00 Test Item Value Reference Range Interpretation Comments MPV (test code = MPV) 8.1 7.4-10.4 [facility] AND [id number] 21:03:00 Test Item Value Reference Range Interpretation Comments UA Comment 1 (test Suboptimal specimen code = UA Comment 1) received. Results may be inaccurate due to the age of the specimen. Interpret results with caution. [facility] AND [id number] 21:03:00 Test Item Value Reference Range Interpretation Comments UA Color (test code = Yellow *NA*(10/07/21 UA Color) 4:03 PM) [facility] AND [id number] 21:03:00 Test Item Value Reference Range Interpretation Comments UA Turbidity (test code Slight *ABN*(10/07/21 = UA Turbidity) 4:03 PM) [facility] AND [id number] 21:03:00 Test Item Value Reference Range Interpretation Comments UA Spec Grav (test code = UA Spec 1.015 1 Grav) [facility] AND [id number] 21:03:00 Test Item Value Reference Range Interpretation Comments UA pH (test code = UA pH) 5.0 1 5.0-8.0 [facility] AND [id number] 21:03:00 Test Item Value Reference Range Interpretation Comments UA Protein (test code = UA Negative mg/dL Protein) [facility] AND [id number] 21:03:00 Test Item Value Reference Range Interpretation Comments UA Glucose (test code = UA Negative mg/dL Glucose) [facility] AND [id number] 21:03:00 Test Item Value Reference Range Interpretation Comments UA Ketones (test code = UA Negative mg/dL Ketones) [facility] AND [id number] 21:03:00 Test Item Value Reference Range Interpretation Comments UA Bili (test code = Negative *NA*(10/07/21 UA Bili) 4:03 PM) [facility] AND [id number] 21:03:00 Test Item Value Reference Range Interpretation Comments UA Blood (test code = Negative (10/07/21 4:03 UA Blood) PM) [facility] AND [id number] 21:03:00 Test Item Value Reference Range Interpretation Comments UA Urobilinogen (test code = UA no gt 0.1-1.0 Urobilinogen) [facility] AND [id number] 21:03:00 Test Item Value Reference Range Interpretation Comments UA Nitrite (test code Negative (10/07/21 4:03 = UA Nitrite) PM) [facility] AND [id number] 21:03:00 Test Item Value Reference Range Interpretation Comments UA Leuk Est (test code Large *ABN*(10/07/21 = UA Leuk Est) 4:03 PM) [facility] AND [id number] 21:03:00 Test Item Value Reference Range Interpretation Comments UA WBC (test code = 64 See_Comment [Automa lester message] The UA WBC) system which ge nerated this result transmit lester reference range : <=5. The reference range was not used to interpr et this result as dany l/abnormal. [facility] AND [id number] 21:03:00 Test Item Value Reference Range Interpretation Comments UA RBC (test code = 2 See_Comment [Automa lester message] The UA RBC) system which ge nerated this result transmit lester reference range : <=2. The reference range was not used to interpr et this result as dany l/abnormal. [facility] AND [id number] 21:03:00 Test Item Value Reference Range Interpretation Comments UA Mucus (test code = UA Mucus) Few /LPF [facility] AND [id number] 21:03:00 Test Item Value Reference Range Interpretation Comments UA Sq Epi (test code = UA Sq Epi) None Seen [facility]2022-03-26 21:03:00 Test Item Value Reference Range Interpretation Comments Glucose Lvl (test code = Glucose Lvl) 126 70-99 [facility]2022-03-26 21:03:00 Test Item Value Reference Range Interpretation Comments BUN (test code = BUN) 16 7-22 [place] 718872-03-26 21:03:00 Test Item Value Reference Range Interpretation Comments Creatinine Lvl (test code = Creatinine 0.76 0.50-1.40 Lvl) [facility]2022-03-26 21:03:00 Test Item Value Reference Range Interpretation Comments Sodium Lvl (test code = Sodium Lvl) 140 135-145 [facility]2022-03-26 21:03:00 Test Item Value Reference Range Interpretation Comments Potassium Lvl (test code = Potassium 3.3 3.5-5.1 Lvl) [place] 718872-03-26 21:03:00 Test Item Value Reference Range Interpretation Comments Chloride Lvl (test code = Chloride Lvl) 111 95-109 [place] 718872-03-26 21:03:00 Test Item Value Reference Range Interpretation Comments CO2 (test code = CO2) 22 24-32 [place] 718872-03-26 21:03:00 Test Item Value Reference Range Interpretation Comments Calcium Lvl (test code = Calcium Lvl) 8.5 8.5-10.5 [place] 718872-03-26 21:03:00 Test Item Value Reference Range Interpretation Comments AGAP (test code = AGAP) 10.3 10.0-20.0 [place] 718872-03-26 21:03:00 Test Item Value Reference Range Interpretation Comments eGFR (test code = eGFR) 117 [place] 718872-03-26 21:03:00 Test Item Value Reference Range Interpretation Comments Lactic Acid Lvl (test code = Lactic 1.1 0.5-2.2 Acid Lvl) [place] 357782-03-26 21:03:00 Test Item Value Reference Range Interpretation Comments Segs (test code = Segs) 68.9 45.0-75.0 [place] [address]-03-26 21:03:00 Test Item Value Reference Range Interpretation Comments Lymphocytes (test code = Lymphocytes) 20.4 20.0-40.0 [place] [address]-03-26 21:03:00 Test Item Value Reference Range Interpretation Comments Monocytes (test code = Monocytes) 8.2 2.0-12.0 [place] [address]-03-26 21:03:00 Test Item Value Reference Range Interpretation Comments Eosinophils (test code = 2.2 See_Comment [A utomated message] The Eosinophils) system which ge nerated this result tra nsmitted reference range : <=4.0. The reference r boubacar was not used to int erpret this result as normal/abnormal . [place] 357782-03-26 21:03:00 Test Item Value Reference Range Interpretation Comments Basophils (test code = 0.3 See_Comment [Aut omated message] The Basophils) system which ge nerated this result tra nsmitted reference range : <=1.0. The reference r boubacar was not used to int erpret this result as normal/abnormal . [facility]nouwuyNFDDACAHNQ8202[facility]31-71 21:03:00 Test Item Value Reference Range Interpretation Comments Neutrophils # (test code = Neutrophils 5.5 1.5-8.1 #) [facility] HospitalFmxloyyPWEDXMZDVZ7959-26-74 21:03:00 Test Item Value Reference Range Interpretation Comments Lymphocytes # (test code = Lymphocytes 1.6 1.0-5.5 #) [facility] HospitalWdgqyriLSKFVRELPH7479-06-14 21:03:00 Test Item Value Reference Range Interpretation Comments Monocytes # (test code 0.7 See_Comment [Aut omated message] The = Monocytes #) system which generated this result tra nsmitted reference range : <=0.8. The reference r boubacar was not used to int erpret this result as normal/abnormal . [facility] HospitalCmqasqvWPWBRKTLHU6855-12-95 21:03:00 Test Item Value Reference Range Interpretation Comments Eosinophils # (test code 0.2 See_Comment [A utomated message] The = Eosinophils #) system whic h generated this result tra nsmitted reference range : <=0.5. The reference r boubacar was not used to int erpret this result as normal/abnormal . [facility] HospitalSeoabyjIOPRHZLIHH6567-95-48 21:03:00 Test Item Value Reference Range Interpretation Comments WBC (test code = WBC) 8.0 3.7-10.4 [facility] HospitalWuphdlaZIBXPSIJWG9157-47-12 21:03:00 Test Item Value Reference Range Interpretation Comments RBC (test code = RBC) 5.37 4.70-6.10 [place] 357782-03-26 21:03:00 Test Item Value Reference Range Interpretation Comments Hgb (test code = Hgb) 15.9 14.0-18.0 [place] 357782-03-26 21:03:00 Test Item Value Reference Range Interpretation Comments Hct (test code = Hct) 47.3 42.0-54.0 [place] 357782-03-26 21:03:00 Test Item Value Reference Range Interpretation Comments MCV (test code = MCV) 88.1 80.0-94.0 [facility] HospitalNzcenpjWHOBJMFHPF7102-88-79 21:03:00 Test Item Value Reference Range Interpretation Comments MCH (test code = MCH) 29.6 pg 27.0-31.0 [facility] HospitalCrxlmugSCEAKNMCWR8332-28-67 21:03:00 Test Item Value Reference Range Interpretation Comments MCHC (test code = MCHC) 33.6 32.0-36.0 [facility] HospitalInlkghhBROKFQMURQ0166-25-33 21:03:00 Test Item Value Reference Range Interpretation Comments RDW (test code = RDW) 15.3 11.5-14.5 [facility] HospitalEabqrrwEAKHLLKNLS7228-70-17 21:03:00 Test Item Value Reference Range Interpretation Comments Platelet (test code = Platelet) 370 133-450 [facility] HospitalPksbdejTGGRIAQPQW0760-72-75 21:03:00 Test Item Value Reference Range Interpretation Comments MPV (test code = MPV) 8.1 7.4-10.4 [facility] AND [id number] 21:03:00 Test Item Value Reference Range Interpretation Comments UA Comment 1 (test Suboptimal specimen code = UA Comment 1) received. Results may be inaccurate due to the age of the specimen. Interpret results with caution. [facility] AND [id number] 21:03:00 Test Item Value Reference Range Interpretation Comments UA Color (test code = Yellow *NA*(10/07/21 UA Color) 4:03 PM) [facility] AND [id number] 21:03:00 Test Item Value Reference Range Interpretation Comments UA Turbidity (test code Slight *ABN*(10/07/21 = UA Turbidity) 4:03 PM) [facility] AND [id number] 21:03:00 Test Item Value Reference Range Interpretation Comments UA Spec Grav (test code = UA Spec 1.015 1 Grav) [facility] AND [id number] 21:03:00 Test Item Value Reference Range Interpretation Comments UA pH (test code = UA pH) 5.0 1 5.0-8.0 [facility] AND [id number] 21:03:00 Test Item Value Reference Range Interpretation Comments UA Protein (test code = UA Negative mg/dL Protein) [facility] AND [id number] 21:03:00 Test Item Value Reference Range Interpretation Comments UA Glucose (test code = UA Negative mg/dL Glucose) [facility] AND [id number] 21:03:00 Test Item Value Reference Range Interpretation Comments UA Ketones (test code = UA Negative mg/dL Ketones) [facility] AND [id number] 21:03:00 Test Item Value Reference Range Interpretation Comments UA Bili (test code = Negative *NA*(10/07/21 UA Bili) 4:03 PM) [facility] AND [id number] 21:03:00 Test Item Value Reference Range Interpretation Comments UA Blood (test code = Negative (10/07/21 4:03 UA Blood) PM) [facility] AND [id number] 21:03:00 Test Item Value Reference Range Interpretation Comments UA Urobilinogen (test code = UA no gt 0.1-1.0 Urobilinogen) [facility] AND [id number] 21:03:00 Test Item Value Reference Range Interpretation Comments UA Nitrite (test code Negative (10/07/21 4:03 = UA Nitrite) PM) [facility] AND [id number] 21:03:00 Test Item Value Reference Range Interpretation Comments UA Leuk Est (test code Large *ABN*(10/07/21 = UA Leuk Est) 4:03 PM) [facility] AND [id number] 21:03:00 Test Item Value Reference Range Interpretation Comments UA WBC (test code = 64 See_Comment [Automa lester message] The UA WBC) system which ge nerated this result transmit lester reference range : <=5. The reference range was not used to interpr et this result as dany l/abnormal. [facility] AND [id number] 21:03:00 Test Item Value Reference Range Interpretation Comments UA RBC (test code = 2 See_Comment [Automa lester message] The UA RBC) system which ge nerated this result transmit lester reference range : <=2. The reference range was not used to interpr et this result as dany l/abnormal. [facility] AND [id number] 21:03:00 Test Item Value Reference Range Interpretation Comments UA Mucus (test code = UA Mucus) Few /LPF [facility] AND [id number] 21:03:00 Test Item Value Reference Range Interpretation Comments UA Sq Epi (test code = UA Sq Epi) None Seen [place] 718872-03-26 21:03:00 Test Item Value Reference Range Interpretation Comments Glucose Lvl (test code = Glucose Lvl) 126 70-99 [place] 718872-03-26 21:03:00 Test Item Value Reference Range Interpretation Comments BUN (test code = BUN) 16 7-22 [place] 718872-03-26 21:03:00 Test Item Value Reference Range Interpretation Comments Creatinine Lvl (test code = Creatinine 0.76 0.50-1.40 Lvl) [place] 718872-03-26 21:03:00 Test Item Value Reference Range Interpretation Comments Sodium Lvl (test code = Sodium Lvl) 140 135-145 [place] 718872-03-26 21:03:00 Test Item Value Reference Range Interpretation Comments Potassium Lvl (test code = Potassium 3.3 3.5-5.1 Lvl) [place] 718872-03-26 21:03:00 Test Item Value Reference Range Interpretation Comments Chloride Lvl (test code = Chloride Lvl) 111 95-109 [place] 718872-03-26 21:03:00 Test Item Value Reference Range Interpretation Comments CO2 (test code = CO2) 22 24-32 [place] 718872-03-26 21:03:00 Test Item Value Reference Range Interpretation Comments Calcium Lvl (test code = Calcium Lvl) 8.5 8.5-10.5 [place] 718872-03-26 21:03:00 Test Item Value Reference Range Interpretation Comments AGAP (test code = AGAP) 10.3 10.0-20.0 [place] 718872-03-26 21:03:00 Test Item Value Reference Range Interpretation Comments eGFR (test code = eGFR) 117 [place] 718872-03-26 21:03:00 Test Item Value Reference Range Interpretation Comments Lactic Acid Lvl (test code = Lactic 1.1 0.5-2.2 Acid Lvl) [place] 357782-03-26 21:03:00 Test Item Value Reference Range Interpretation Comments Segs (test code = Segs) 68.9 45.0-75.0 [place] 357782-03-26 21:03:00 Test Item Value Reference Range Interpretation Comments Lymphocytes (test code = Lymphocytes) 20.4 20.0-40.0 [place] 357782-03-26 21:03:00 Test Item Value Reference Range Interpretation Comments Monocytes (test code = Monocytes) 8.2 2.0-12.0 [place] 357782-03-26 21:03:00 Test Item Value Reference Range Interpretation Comments Eosinophils (test code = 2.2 See_Comment [A utomated message] The Eosinophils) system which ge nerated this result tra nsmitted reference range : <=4.0. The reference r boubacar was not used to int erpret this result as normal/abnormal . [place] 357782-03-26 21:03:00 Test Item Value Reference Range Interpretation Comments Basophils (test code = 0.3 See_Comment [Aut omated message] The Basophils) system which ge nerated this result tra nsmitted reference range : <=1.0. The reference r boubacar was not used to int erpret this result as normal/abnormal . [place] 357782-03-26 21:03:00 Test Item Value Reference Range Interpretation Comments Neutrophils # (test code = Neutrophils 5.5 1.5-8.1 #) [place] 357782-03-26 21:03:00 Test Item Value Reference Range Interpretation Comments Lymphocytes # (test code = Lymphocytes 1.6 1.0-5.5 #) [place] 357782-03-26 21:03:00 Test Item Value Reference Range Interpretation Comments Monocytes # (test code 0.7 See_Comment [Aut omated message] The = Monocytes #) system which generated this result tra nsmitted reference range : <=0.8. The reference r boubacar was not used to int erpret this result as normal/abnormal . [place] 357782-03-26 21:03:00 Test Item Value Reference Range Interpretation Comments Eosinophils # (test code 0.2 See_Comment [A utomated message] The = Eosinophils #) system whic h generated this result tra nsmitted reference range : <=0.5. The reference r boubacar was not used to int erpret this result as normal/abnormal . [place] 357782-03-26 21:03:00 Test Item Value Reference Range Interpretation Comments WBC (test code = WBC) 8.0 3.7-10.4 [facility] HospitalRbsukjuTFANRUDGIM2098-15-75 21:03:00 Test Item Value Reference Range Interpretation Comments RBC (test code = RBC) 5.37 4.70-6.10 [facility] HospitalWmudpwqKYEWQOAIEV0316-59-83 21:03:00 Test Item Value Reference Range Interpretation Comments Hgb (test code = Hgb) 15.9 14.0-18.0 [facility] HospitalHlxqpfbFPHQJZTPYB9715-42-25 21:03:00 Test Item Value Reference Range Interpretation Comments Hct (test code = Hct) 47.3 42.0-54.0 [facility] HospitalOlweafmEDCIQICNOR5269-29-15 21:03:00 Test Item Value Reference Range Interpretation Comments MCV (test code = MCV) 88.1 80.0-94.0 [facility] HospitalFmhcgvyPMOEKFMUQM0812-73-28 21:03:00 Test Item Value Reference Range Interpretation Comments MCH (test code = MCH) 29.6 pg 27.0-31.0 [facility] HospitalJbkxxvxAQPVOAVKPM6046-61-77 21:03:00 Test Item Value Reference Range Interpretation Comments MCHC (test code = MCHC) 33.6 32.0-36.0 [facility] HospitalKbmcghxBAUPJMFRTZ0301-04-05 21:03:00 Test Item Value Reference Range Interpretation Comments RDW (test code = RDW) 15.3 11.5-14.5 [facility] HospitalTwgapghHUUGFVBOOL1665-11-48 21:03:00 Test Item Value Reference Range Interpretation Comments Platelet (test code = Platelet) 370 133-450 [facility] HospitalYxedxicEQFZEIMZAO4535-75-28 21:03:00 Test Item Value Reference Range Interpretation Comments MPV (test code = MPV) 8.1 7.4-10.4 [facility]2022-03-26 21:03:00 Test Item Value Reference Range Interpretation Comments UA Comment 1 (test Suboptimal specimen code = UA Comment 1) received. Results may be inaccurate due to the age of the specimen. Interpret results with caution. [facility] [id number] 21:03:00 Test Item Value Reference Range Interpretation Comments UA Color (test code = Yellow *NA*(10/07/21 UA Color) 4:03 PM) [facility] AND [id number] 21:03:00 Test Item Value Reference Range Interpretation Comments UA Turbidity (test code Slight *ABN*(10/07/21 = UA Turbidity) 4:03 PM) [facility] AND [id number] 21:03:00 Test Item Value Reference Range Interpretation Comments UA Spec Grav (test code = UA Spec 1.015 1 Grav) [facility] AND [id number] 21:03:00 Test Item Value Reference Range Interpretation Comments UA pH (test code = UA pH) 5.0 1 5.0-8.0 [facility] AND [id number] 21:03:00 Test Item Value Reference Range Interpretation Comments UA Protein (test code = UA Negative mg/dL Protein) [facility] AND [id number] 21:03:00 Test Item Value Reference Range Interpretation Comments UA Glucose (test code = UA Negative mg/dL Glucose) [facility] AND [id number] 21:03:00 Test Item Value Reference Range Interpretation Comments UA Ketones (test code = UA Negative mg/dL Ketones) [facility] AND [id number] 21:03:00 Test Item Value Reference Range Interpretation Comments UA Bili (test code = Negative *NA*(10/07/21 UA Bili) 4:03 PM) [facility] AND [id number] 21:03:00 Test Item Value Reference Range Interpretation Comments UA Blood (test code = Negative (10/07/21 4:03 UA Blood) PM) [facility] AND [id number] 21:03:00 Test Item Value Reference Range Interpretation Comments UA Urobilinogen (test code = UA no gt 0.1-1.0 Urobilinogen) [facility] AND [id number] 21:03:00 Test Item Value Reference Range Interpretation Comments UA Nitrite (test code Negative (10/07/21 4:03 = UA Nitrite) PM) [facility] AND [id number] 21:03:00 Test Item Value Reference Range Interpretation Comments UA Leuk Est (test code Large *ABN*(10/07/21 = UA Leuk Est) 4:03 PM) [facility] AND [id number] 21:03:00 Test Item Value Reference Range Interpretation Comments UA WBC (test code = 64 See_Comment [Automa lester message] The UA WBC) system which ge nerated this result transmit lester reference range : <=5. The reference range was not used to interpr et this result as dany l/abnormal. [facility] AND [id number] 21:03:00 Test Item Value Reference Range Interpretation Comments UA RBC (test code = 2 See_Comment [Automa lester message] The UA RBC) system which ge nerated this result transmit lester reference range : <=2. The reference range was not used to interpr et this result as dany l/abnormal. [facility] AND [id number] 21:03:00 Test Item Value Reference Range Interpretation Comments UA Mucus (test code = UA Mucus) Few /LPF [facility] AND [id number] 21:03:00 Test Item Value Reference Range Interpretation Comments UA Sq Epi (test code = UA Sq Epi) None Seen [facility]2022-03-26 21:03:00 Test Item Value Reference Range Interpretation Comments Glucose Lvl (test code = Glucose Lvl) 126 70-99 [facility] [id number] 21:03:00 Test Item Value Reference Range Interpretation Comments BUN (test code = BUN) 16 7-22 [facility]2022-03-26 21:03:00 Test Item Value Reference Range Interpretation Comments Creatinine Lvl (test code = Creatinine 0.76 0.50-1.40 Lvl) [facility]2022-03-26 21:03:00 Test Item Value Reference Range Interpretation Comments Sodium Lvl (test code = Sodium Lvl) 140 135-145 [facility] [id number] 21:03:00 Test Item Value Reference Range Interpretation Comments Potassium Lvl (test code = Potassium 3.3 3.5-5.1 Lvl) [facility]2022-03-26 21:03:00 Test Item Value Reference Range Interpretation Comments Chloride Lvl (test code = Chloride Lvl) 111 95-109 [place] 718872-03-26 21:03:00 Test Item Value Reference Range Interpretation Comments CO2 (test code = CO2) 22 24-32 [place] 718872-03-26 21:03:00 Test Item Value Reference Range Interpretation Comments Calcium Lvl (test code = Calcium Lvl) 8.5 8.5-10.5 [place] 718872-03-26 21:03:00 Test Item Value Reference Range Interpretation Comments AGAP (test code = AGAP) 10.3 10.0-20.0 [place] 718872-03-26 21:03:00 Test Item Value Reference Range Interpretation Comments eGFR (test code = eGFR) 117 [place] 718872-03-26 21:03:00 Test Item Value Reference Range Interpretation Comments Lactic Acid Lvl (test code = Lactic 1.1 0.5-2.2 Acid Lvl) [place] 357782-03-26 21:03:00 Test Item Value Reference Range Interpretation Comments Segs (test code = Segs) 68.9 45.0-75.0 [place] [address]-03-26 21:03:00 Test Item Value Reference Range Interpretation Comments Lymphocytes (test code = Lymphocytes) 20.4 20.0-40.0 [place] [address]-03-26 21:03:00 Test Item Value Reference Range Interpretation Comments Monocytes (test code = Monocytes) 8.2 2.0-12.0 [place] [address]-03-26 21:03:00 Test Item Value Reference Range Interpretation Comments Eosinophils (test code = 2.2 See_Comment [A utomated message] The Eosinophils) system which nerated this result tra nsmitted reference range : <=4.0. The reference r boubacar was not used to int erpret this result as normal/abnormal . [place] 357782-03-26 21:03:00 Test Item Value Reference Range Interpretation Comments Basophils (test code = 0.3 See_Comment [Aut omated message] The Basophils) system which ge nerated this result tra nsmitted reference range : <=1.0. The reference r boubacar was not used to int erpret this result as normal/abnormal . [place] [address]-03-26 21:03:00 Test Item Value Reference Range Interpretation Comments Neutrophils # (test code = Neutrophils 5.5 1.5-8.1 #) [place] 357782-03-26 21:03:00 Test Item Value Reference Range Interpretation Comments Lymphocytes # (test code = Lymphocytes 1.6 1.0-5.5 #) [facility] HospitalBspbfbcUFUSVUZUCH0592-18-72 21:03:00 Test Item Value Reference Range Interpretation Comments Monocytes # (test code 0.7 See_Comment [Aut omated message] The = Monocytes #) system which generated this result tra nsmitted reference range : <=0.8. The reference r boubacar was not used to int erpret this result as normal/abnormal . [facility] HospitalXkhqahcFGIMIIRORC6475-96-27 21:03:00 Test Item Value Reference Range Interpretation Comments Eosinophils # (test code 0.2 See_Comment [A utomated message] The = Eosinophils #) system whic h generated this result tra nsmitted reference range : <=0.5. The reference r boubacar was not used to int erpret this result as normal/abnormal . [facility] HospitalPjxtnboRNQSLLLLEM2948-25-26 21:03:00 Test Item Value Reference Range Interpretation Comments WBC (test code = WBC) 8.0 3.7-10.4 [facility] HospitalAaagcryKVAYGNRPWN0437-60-88 21:03:00 Test Item Value Reference Range Interpretation Comments RBC (test code = RBC) 5.37 4.70-6.10 [facility] HospitalSvrjrczMKRZAGGAYN7770-40-28 21:03:00 Test Item Value Reference Range Interpretation Comments Hgb (test code = Hgb) 15.9 14.0-18.0 [facility] HospitalInyarbuYVYWGXKXBL0717-84-38 21:03:00 Test Item Value Reference Range Interpretation Comments Hct (test code = Hct) 47.3 42.0-54.0 [place] 357782-03-26 21:03:00 Test Item Value Reference Range Interpretation Comments MCV (test code = MCV) 88.1 80.0-94.0 [place] 357782-03-26 21:03:00 Test Item Value Reference Range Interpretation Comments MCH (test code = MCH) 29.6 pg 27.0-31.0 [place] 357782-03-26 21:03:00 Test Item Value Reference Range Interpretation Comments MCHC (test code = MCHC) 33.6 32.0-36.0 [place] 357782-03-26 21:03:00 Test Item Value Reference Range Interpretation Comments RDW (test code = RDW) 15.3 11.5-14.5 [facility] HospitalUaxhpwqGQWINCHMZM7142-29-10 21:03:00 Test Item Value Reference Range Interpretation Comments Platelet (test code = Platelet) 370 133-450 [facility] HospitalUmgnucuXJFIJKNDXB3739-12-30 21:03:00 Test Item Value Reference Range Interpretation Comments MPV (test code = MPV) 8.1 7.4-10.4 [facility] AND [id number] 21:03:00 Test Item Value Reference Range Interpretation Comments UA Comment 1 (test Suboptimal specimen code = UA Comment 1) received. Results may be inaccurate due to the age of the specimen. Interpret results with caution. [facility] AND [id number] 21:03:00 Test Item Value Reference Range Interpretation Comments UA Color (test code = Yellow *NA*(10/07/21 UA Color) 4:03 PM) [facility] AND [id number] 21:03:00 Test Item Value Reference Range Interpretation Comments UA Turbidity (test code Slight *ABN*(10/07/21 = UA Turbidity) 4:03 PM) [facility] AND [id number] 21:03:00 Test Item Value Reference Range Interpretation Comments UA Spec Grav (test code = UA Spec 1.015 1 Grav) [facility] AND [id number] 21:03:00 Test Item Value Reference Range Interpretation Comments UA pH (test code = UA pH) 5.0 1 5.0-8.0 [facility] AND [id number] 21:03:00 Test Item Value Reference Range Interpretation Comments UA Protein (test code = UA Negative mg/dL Protein) [facility] AND [id number] 21:03:00 Test Item Value Reference Range Interpretation Comments UA Glucose (test code = UA Negative mg/dL Glucose) [facility] AND [id number] 21:03:00 Test Item Value Reference Range Interpretation Comments UA Ketones (test code = UA Negative mg/dL Ketones) [facility] AND [id number] 21:03:00 Test Item Value Reference Range Interpretation Comments UA Bili (test code = Negative *NA*(10/07/21 UA Bili) 4:03 PM) [facility] AND [id number] 21:03:00 Test Item Value Reference Range Interpretation Comments UA Blood (test code = Negative (10/07/21 4:03 UA Blood) PM) [facility] AND [id number] 21:03:00 Test Item Value Reference Range Interpretation Comments UA Urobilinogen (test code = UA no gt 0.1-1.0 Urobilinogen) [facility] AND [id number] 21:03:00 Test Item Value Reference Range Interpretation Comments UA Nitrite (test code Negative (10/07/21 4:03 = UA Nitrite) PM) [facility] AND [id number] 21:03:00 Test Item Value Reference Range Interpretation Comments UA Leuk Est (test code Large *ABN*(10/07/21 = UA Leuk Est) 4:03 PM) [facility] AND [id number] 21:03:00 Test Item Value Reference Range Interpretation Comments UA WBC (test code = 64 See_Comment [Automa lester message] The UA WBC) system which ge nerated this result transmit lester reference range : <=5. The reference range was not used to interpr et this result as dany l/abnormal. [facility] AND [id number] 21:03:00 Test Item Value Reference Range Interpretation Comments UA RBC (test code = 2 See_Comment [Automa lester message] The UA RBC) system which ge nerated this result transmit lester reference range : <=2. The reference range was not used to interpr et this result as dany l/abnormal. [facility] AND [id number] 21:03:00 Test Item Value Reference Range Interpretation Comments UA Mucus (test code = UA Mucus) Few /LPF [facility] AND [id number] 21:03:00 Test Item Value Reference Range Interpretation Comments UA Sq Epi (test code = UA Sq Epi) None Seen [facility]2022-03-26 21:03:00 Test Item Value Reference Range Interpretation Comments Glucose Lvl (test code = Glucose Lvl) 126 70-99 [facility]2022-03-26 21:03:00 Test Item Value Reference Range Interpretation Comments BUN (test code = BUN) 16 7-22 [facility]2022-03-26 21:03:00 Test Item Value Reference Range Interpretation Comments Creatinine Lvl (test code = Creatinine 0.76 0.50-1.40 Lvl) [place] 718872-03-26 21:03:00 Test Item Value Reference Range Interpretation Comments Sodium Lvl (test code = Sodium Lvl) 140 135-145 [place] 718872-03-26 21:03:00 Test Item Value Reference Range Interpretation Comments Potassium Lvl (test code = Potassium 3.3 3.5-5.1 Lvl) [place] 718872-03-26 21:03:00 Test Item Value Reference Range Interpretation Comments Chloride Lvl (test code = Chloride Lvl) 111 95-109 [place] 718872-03-26 21:03:00 Test Item Value Reference Range Interpretation Comments CO2 (test code = CO2) 22 24-32 [place] 718872-03-26 21:03:00 Test Item Value Reference Range Interpretation Comments Calcium Lvl (test code = Calcium Lvl) 8.5 8.5-10.5 [place] 718872-03-26 21:03:00 Test Item Value Reference Range Interpretation Comments AGAP (test code = AGAP) 10.3 10.0-20.0 [place] 718872-03-26 21:03:00 Test Item Value Reference Range Interpretation Comments eGFR (test code = eGFR) 117 [place] 718872-03-26 21:03:00 Test Item Value Reference Range Interpretation Comments Lactic Acid Lvl (test code = Lactic 1.1 0.5-2.2 Acid Lvl) [place] 357782-03-26 21:03:00 Test Item Value Reference Range Interpretation Comments Segs (test code = Segs) 68.9 45.0-75.0 [place] 357782-03-26 21:03:00 Test Item Value Reference Range Interpretation Comments Lymphocytes (test code = Lymphocytes) 20.4 20.0-40.0 [place] 357782-03-26 21:03:00 Test Item Value Reference Range Interpretation Comments Monocytes (test code = Monocytes) 8.2 2.0-12.0 [place] [address]-03-26 21:03:00 Test Item Value Reference Range Interpretation Comments Eosinophils (test code = 2.2 See_Comment [A utomated message] The Eosinophils) system which ge nerated this result tra nsmitted reference range : <=4.0. The reference r boubacar was not used to int erpret this result as normal/abnormal . [facility]TipggsuEHZHIJQLAL9404-26-87 21:03:00 Test Item Value Reference Range Interpretation Comments Basophils (test code = 0.3 See_Comment [Aut omated message] The Basophils) system which ge nerated this result tra nsmitted reference range : <=1.0. The reference r boubacar was not used to int erpret this result as normal/abnormal . [facility] HospitalYazogglMGVWRCKHKQ2116-70-68 21:03:00 Test Item Value Reference Range Interpretation Comments Neutrophils # (test code = Neutrophils 5.5 1.5-8.1 #) [facility] HospitalHxddhszTQDTIEPPLU8839-17-92 21:03:00 Test Item Value Reference Range Interpretation Comments Lymphocytes # (test code = Lymphocytes 1.6 1.0-5.5 #) [facility] HospitalQrfgecsHYLIJORTTK3302-90-01 21:03:00 Test Item Value Reference Range Interpretation Comments Monocytes # (test code 0.7 See_Comment [Aut omated message] The = Monocytes #) system which generated this result tra nsmitted reference range : <=0.8. The reference r boubacar was not used to int erpret this result as normal/abnormal . [facility] HospitalSdautstSPJLNXYJXQ7143-09-73 21:03:00 Test Item Value Reference Range Interpretation Comments Eosinophils # (test code 0.2 See_Comment [A utomated message] The = Eosinophils #) system whic h generated this result tra nsmitted reference range : <=0.5. The reference r boubacar was not used to int erpret this result as normal/abnormal . [facility] HospitalUnndubmQCPBCPKXKY7800-48-64 21:03:00 Test Item Value Reference Range Interpretation Comments WBC (test code = WBC) 8.0 3.7-10.4 [place] 357782-03-26 21:03:00 Test Item Value Reference Range Interpretation Comments RBC (test code = RBC) 5.37 4.70-6.10 [place] 357782-03-26 21:03:00 Test Item Value Reference Range Interpretation Comments Hgb (test code = Hgb) 15.9 14.0-18.0 [place] 357782-03-26 21:03:00 Test Item Value Reference Range Interpretation Comments Hct (test code = Hct) 47.3 42.0-54.0 [facility]MI5178-[facility]-35 21:03:00 Test Item Value Reference Range Interpretation Comments MCV (test code = MCV) 88.1 80.0-94.0 [facility] HospitalKxoixdlKDQJMKVBSJ0533-80-28 21:03:00 Test Item Value Reference Range Interpretation Comments MCH (test code = MCH) 29.6 pg 27.0-31.0 [facility] HospitalKtkzcdzRYTJRUEFCB1822-10-28 21:03:00 Test Item Value Reference Range Interpretation Comments MCHC (test code = MCHC) 33.6 32.0-36.0 [facility] HospitalAckeqieDJEEVRPUTQ4254-58-28 21:03:00 Test Item Value Reference Range Interpretation Comments RDW (test code = RDW) 15.3 11.5-14.5 [facility] HospitalNdxtxzbHERYMFLRFG4688-24-56 21:03:00 Test Item Value Reference Range Interpretation Comments Platelet (test code = Platelet) 370 133-450 [facility] HospitalGkmrkkrGOPKHBYRKN3747-57-09 21:03:00 Test Item Value Reference Range Interpretation Comments MPV (test code = MPV) 8.1 7.4-10.4 [facility] AND [id number] 21:03:00 Test Item Value Reference Range Interpretation Comments UA Comment 1 (test Suboptimal specimen code = UA Comment 1) received. Results may be inaccurate due to the age of the specimen. Interpret results with caution. [facility] AND [id number] 21:03:00 Test Item Value Reference Range Interpretation Comments UA Color (test code = Yellow *NA*(10/07/21 UA Color) 4:03 PM) [facility] AND [id number] 21:03:00 Test Item Value Reference Range Interpretation Comments UA Turbidity (test code Slight *ABN*(10/07/21 = UA Turbidity) 4:03 PM) [facility] AND [id number] 21:03:00 Test Item Value Reference Range Interpretation Comments UA Spec Grav (test code = UA Spec 1.015 1 Grav) [facility] AND [id number] 21:03:00 Test Item Value Reference Range Interpretation Comments UA pH (test code = UA pH) 5.0 1 5.0-8.0 [facility] AND [id number] 21:03:00 Test Item Value Reference Range Interpretation Comments UA Protein (test code = UA Negative mg/dL Protein) [facility] AND [id number] 21:03:00 Test Item Value Reference Range Interpretation Comments UA Glucose (test code = UA Negative mg/dL Glucose) [facility] AND [id number] 21:03:00 Test Item Value Reference Range Interpretation Comments UA Ketones (test code = UA Negative mg/dL Ketones) [facility] AND [id number] 21:03:00 Test Item Value Reference Range Interpretation Comments UA Bili (test code = Negative *NA*(10/07/21 UA Bili) 4:03 PM) [facility] AND [id number] 21:03:00 Test Item Value Reference Range Interpretation Comments UA Blood (test code = Negative (10/07/21 4:03 UA Blood) PM) [facility] AND [id number] 21:03:00 Test Item Value Reference Range Interpretation Comments UA Urobilinogen (test code = UA no gt 0.1-1.0 Urobilinogen) [facility] AND [id number] 21:03:00 Test Item Value Reference Range Interpretation Comments UA Nitrite (test code Negative (10/07/21 4:03 = UA Nitrite) PM) [facility] AND [id number] 21:03:00 Test Item Value Reference Range Interpretation Comments UA Leuk Est (test code Large *ABN*(10/07/21 = UA Leuk Est) 4:03 PM) [facility] AND [id number] 21:03:00 Test Item Value Reference Range Interpretation Comments UA WBC (test code = 64 See_Comment [Automa lester message] The UA WBC) system which ge nerated this result transmit lester reference range : <=5. The reference range was not used to interpr et this result as dany l/abnormal. [facility] AND [id number] 21:03:00 Test Item Value Reference Range Interpretation Comments UA RBC (test code = 2 See_Comment [Automa lester message] The UA RBC) system which ge nerated this result transmit lester reference range : <=2. The reference range was not used to interpr et this result as dany l/abnormal. [facility] AND [id number] 21:03:00 Test Item Value Reference Range Interpretation Comments UA Mucus (test code = UA Mucus) Few /LPF [facility] AND [id number] 21:03:00 Test Item Value Reference Range Interpretation Comments UA Sq Epi (test code = UA Sq Epi) None Seen [facility]2022-03-26 21:03:00 Test Item Value Reference Range Interpretation Comments Glucose Lvl (test code = Glucose Lvl) 126 70-99 [place] 718872-03-26 21:03:00 Test Item Value Reference Range Interpretation Comments BUN (test code = BUN) 16 7-22 [place] 718872-03-26 21:03:00 Test Item Value Reference Range Interpretation Comments Creatinine Lvl (test code = Creatinine 0.76 0.50-1.40 Lvl) [facility]2022-03-26 21:03:00 Test Item Value Reference Range Interpretation Comments Sodium Lvl (test code = Sodium Lvl) 140 135-145 [facility]2022-03-26 21:03:00 Test Item Value Reference Range Interpretation Comments Potassium Lvl (test code = Potassium 3.3 3.5-5.1 Lvl) [facility]2022-03-26 21:03:00 Test Item Value Reference Range Interpretation Comments Chloride Lvl (test code = Chloride Lvl) 111 95-109 [facility]2022-03-26 21:03:00 Test Item Value Reference Range Interpretation Comments CO2 (test code = CO2) 22 24-32 [place] 718872-03-26 21:03:00 Test Item Value Reference Range Interpretation Comments Calcium Lvl (test code = Calcium Lvl) 8.5 8.5-10.5 [facility]2022-03-26 21:03:00 Test Item Value Reference Range Interpretation Comments AGAP (test code = AGAP) 10.3 10.0-20.0 [place] 718872-03-26 21:03:00 Test Item Value Reference Range Interpretation Comments eGFR (test code = eGFR) 117 [place] 718872-03-26 21:03:00 Test Item Value Reference Range Interpretation Comments Lactic Acid Lvl (test code = Lactic 1.1 0.5-2.2 Acid Lvl) [facility] HospitalJdzokiiSDQLYOPMOL0624-57-80 21:03:00 Test Item Value Reference Range Interpretation Comments Segs (test code = Segs) 68.9 45.0-75.0 [place] 357782-03-26 21:03:00 Test Item Value Reference Range Interpretation Comments Lymphocytes (test code = Lymphocytes) 20.4 20.0-40.0 [place] 357782-03-26 21:03:00 Test Item Value Reference Range Interpretation Comments Monocytes (test code = Monocytes) 8.2 2.0-12.0 [place] 357782-03-26 21:03:00 Test Item Value Reference Range Interpretation Comments Eosinophils (test code = 2.2 See_Comment [A utomated message] The Eosinophils) system which ge nerated this result tra nsmitted reference range : <=4.0. The reference r boubacar was not used to int erpret this result as normal/abnormal . [facility] HospitalQjxggwhHICYRLJXDV7126-05-60 21:03:00 Test Item Value Reference Range Interpretation Comments Basophils (test code = 0.3 See_Comment [Aut omated message] The Basophils) system which ge nerated this result tra nsmitted reference range : <=1.0. The reference r boubacar was not used to int erpret this result as normal/abnormal . [facility] HospitalEaabaqaMRRJAMWXOR0070-76-40 21:03:00 Test Item Value Reference Range Interpretation Comments Neutrophils # (test code = Neutrophils 5.5 1.5-8.1 #) [place] 357782-03-26 21:03:00 Test Item Value Reference Range Interpretation Comments Lymphocytes # (test code = Lymphocytes 1.6 1.0-5.5 #) [place] 357782-03-26 21:03:00 Test Item Value Reference Range Interpretation Comments Monocytes # (test code 0.7 See_Comment [Aut omated message] The = Monocytes #) system which generated this result tra nsmitted reference range : <=0.8. The reference r boubacar was not used to int erpret this result as normal/abnormal . [place] 357782-03-26 21:03:00 Test Item Value Reference Range Interpretation Comments Eosinophils # (test code 0.2 See_Comment [A utomated message] The = Eosinophils #) system whic h generated this result tra nsmitted reference range : <=0.5. The reference r boubacar was not used to int erpret this result as normal/abnormal . [id number] 21:03:00 Test Item Value Reference Range Interpretation Comments WBC (test code = WBC) 8.0 3.7-10.4 [facility] MichiganFlaxrxlFULZGCHVJP0398-43-42 21:03:00 Test Item Value Reference Range Interpretation Comments RBC (test code = RBC) 5.37 4.70-6.10 [facility] MichiganBzcibsfCVHGRZDLOY1292-00-94 21:03:00 Test Item Value Reference Range Interpretation Comments Hgb (test code = Hgb) 15.9 14.0-18.0 [facility] MichiganEaenanmWURLGXROHE7842-22-72 21:03:00 Test Item Value Reference Range Interpretation Comments Hct (test code = Hct) 47.3 42.0-54.0 [facility] MichiganAfibikhSIXNZJPLIG9352-21-60 21:03:00 Test Item Value Reference Range Interpretation Comments MCV (test code = MCV) 88.1 80.0-94.0 [facility] MichiganTthqhmoDCSJFZOPPM1451-18-38 21:03:00 Test Item Value Reference Range Interpretation Comments MCH (test code = MCH) 29.6 pg 27.0-31.0 [facility] MichiganMsfwxoqBNTOHEQCZQ6473-14-05 21:03:00 Test Item Value Reference Range Interpretation Comments MCHC (test code = MCHC) 33.6 32.0-36.0 [facility] MichiganZkqwhhzZDYGQMAWTN9961-18-19 21:03:00 Test Item Value Reference Range Interpretation Comments RDW (test code = RDW) 15.3 11.5-14.5 [facility] MichiganZixbvzyUAXMTXBRWS2802-78-34 21:03:00 Test Item Value Reference Range Interpretation Comments Platelet (test code = Platelet) 370 133-450 [facility] MichiganFbhrzycCOLDKSRVUB9545-56-54 21:03:00 Test Item Value Reference Range Interpretation Comments MPV (test code = MPV) 8.1 7.4-10.4 [facility]2022-03-26 21:03:00 Test Item Value Reference Range Interpretation Comments UA Comment 1 (test Suboptimal specimen code = UA Comment 1) received. Results may be inaccurate due to the age of the specimen. Interpret results with caution. [facility] AND [id number] 21:03:00 Test Item Value Reference Range Interpretation Comments UA Color (test code = Yellow *NA*(10/07/21 UA Color) 4:03 PM) [facility] AND [id number] 21:03:00 Test Item Value Reference Range Interpretation Comments UA Turbidity (test code Slight *ABN*(10/07/21 = UA Turbidity) 4:03 PM) [facility] AND [id number] 21:03:00 Test Item Value Reference Range Interpretation Comments UA Spec Grav (test code = UA Spec 1.015 1 Grav) [facility] AND [id number] 21:03:00 Test Item Value Reference Range Interpretation Comments UA pH (test code = UA pH) 5.0 1 5.0-8.0 [facility] AND [id number] 21:03:00 Test Item Value Reference Range Interpretation Comments UA Protein (test code = UA Negative mg/dL Protein) [facility] AND [id number] 21:03:00 Test Item Value Reference Range Interpretation Comments UA Glucose (test code = UA Negative mg/dL Glucose) [facility] AND [id number] 21:03:00 Test Item Value Reference Range Interpretation Comments UA Ketones (test code = UA Negative mg/dL Ketones) [facility] AND [id number] 21:03:00 Test Item Value Reference Range Interpretation Comments UA Bili (test code = Negative *NA*(10/07/21 UA Bili) 4:03 PM) [facility] AND [id number] 21:03:00 Test Item Value Reference Range Interpretation Comments UA Blood (test code = Negative (10/07/21 4:03 UA Blood) PM) [facility] AND [id number] 21:03:00 Test Item Value Reference Range Interpretation Comments UA Urobilinogen (test code = UA no gt 0.1-1.0 Urobilinogen) [facility] AND [id number] 21:03:00 Test Item Value Reference Range Interpretation Comments UA Nitrite (test code Negative (10/07/21 4:03 = UA Nitrite) PM) [facility] AND [id number] 21:03:00 Test Item Value Reference Range Interpretation Comments UA Leuk Est (test code Large *ABN*(10/07/21 = UA Leuk Est) 4:03 PM) [facility] AND [id number] 21:03:00 Test Item Value Reference Range Interpretation Comments UA WBC (test code = 64 See_Comment [Automa lester message] The UA WBC) system which ge nerated this result transmit lester reference range : <=5. The reference range was not used to interpr et this result as dany l/abnormal. [facility] AND [id number] 21:03:00 Test Item Value Reference Range Interpretation Comments UA RBC (test code = 2 See_Comment [Automa lester message] The UA RBC) system which ge nerated this result transmit lester reference range : <=2. The reference range was not used to interpr et this result as dany l/abnormal. [facility] AND [id number] 21:03:00 Test Item Value Reference Range Interpretation Comments UA Mucus (test code = UA Mucus) Few /LPF [facility] AND [id number] 21:03:00 Test Item Value Reference Range Interpretation Comments UA Sq Epi (test code = UA Sq Epi) None [facility] [id number] 09:58:00 Test Item Value Reference Range Interpretation Comments Lactic Acid Lvl (test code = Lactic 2.4 0.5-2.2 Acid Lvl) [facility]VyhhloyBHOCFFQCMC8543-76-22 09:58:00 Test Item Value Reference Range Interpretation Comments Sed Rate (test code = 13 See_Comment [Auto mated message] The Sed Rate) system which ge nerated this result transmit lester reference range : <=15. The reference range was not used to interpr et this result as dany l/abnormal. [facility] BrookXdygeoaWYVEPQUFCI8881-92-01 09:58:00 Test Item Value Reference Range Interpretation Comments C-REACTIVE PROTEIN (test code = 10.6 C-REACTIVE PROTEIN) [facility] [id number] 09:58:00 Test Item Value Reference Range Interpretation Comments Lactic Acid Lvl (test code = Lactic 2.4 0.5-2.2 Acid Lvl) [facility] BrookHftknfcVTAFZWDQLX4479-90-41 09:58:00 Test Item Value Reference Range Interpretation Comments Sed Rate (test code = 13 See_Comment [Auto mated message] The Sed Rate) system which ge nerated this result transmit lester reference range : <=15. The reference range was not used to interpr et this result as dany l/abnormal. [address]03-26 09:58:00 Test Item Value Reference Range Interpretation Comments C-REACTIVE PROTEIN (test code = 10.6 C-REACTIVE PROTEIN) [address]03-26 09:58:00 Test Item Value Reference Range Interpretation Comments Lactic Acid Lvl (test code = Lactic 2.4 0.5-2.2 Acid Lvl) [address]03-26 09:58:00 Test Item Value Reference Range Interpretation Comments Sed Rate (test code = 13 See_Comment [Auto mated message] The Sed Rate) system which ge nerated this result transmit lester reference range : <=15. The reference range was not used to interpr et this result as dany l/abnormal. [address]03-26 09:58:00 Test Item Value Reference Range Interpretation Comments C-REACTIVE PROTEIN (test code = 10.6 C-REACTIVE PROTEIN) [address]03-26 09:58:00 Test Item Value Reference Range Interpretation Comments Lactic Acid Lvl (test code = Lactic 2.4 0.5-2.2 Acid Lvl) [address]03-26 09:58:00 Test Item Value Reference Range Interpretation Comments Sed Rate (test code = 13 See_Comment [Auto mated message] The Sed Rate) system which ge nerated this result transmit lester reference range : <=15. The reference range was not used to interpr et this result as dany l/abnormal. [address]03-26 09:58:00 Test Item Value Reference Range Interpretation Comments C-REACTIVE PROTEIN (test code = 10.6 C-REACTIVE PROTEIN) [address]03-26 09:58:00 Test Item Value Reference Range Interpretation Comments Lactic Acid Lvl (test code = Lactic 2.4 0.5-2.2 Acid Lvl) [address]03-26 09:58:00 Test Item Value Reference Range Interpretation Comments Sed Rate (test code = 13 See_Comment [Auto mated message] The Sed Rate) system which ge nerated this result transmit lester reference range : <=15. The reference range was not used to interpr et this result as dany l/abnormal. [address]03-26 09:58:00 Test Item Value Reference Range Interpretation Comments C-REACTIVE PROTEIN (test code = 10.6 C-REACTIVE PROTEIN) [address]03-26 09:58:00 Test Item Value Reference Range Interpretation Comments Lactic Acid Lvl (test code = Lactic 2.4 0.5-2.2 Acid Lvl) [address]03-26 09:58:00 Test Item Value Reference Range Interpretation Comments Sed Rate (test code = 13 See_Comment [Auto mated message] The Sed Rate) system which ge nerated this result transmit lester reference range : <=15. The reference range was not used to interpr et this result as dany l/abnormal. [address]03-26 09:58:00 Test Item Value Reference Range Interpretation Comments C-REACTIVE PROTEIN (test code = 10.6 C-REACTIVE PROTEIN) [address]03-26 09:58:00 Test Item Value Reference Range Interpretation Comments Lactic Acid Lvl (test code = Lactic 2.4 0.5-2.2 Acid Lvl) [address]03-26 09:58:00 Test Item Value Reference Range Interpretation Comments Sed Rate (test code = 13 See_Comment [Auto mated message] The Sed Rate) system which ge nerated this result transmit lester reference range : <=15. The reference range was not used to interpr et this result as dany l/abnormal. [place] [address]-03-26 09:58:00 Test Item Value Reference Range Interpretation Comments C-REACTIVE PROTEIN (test code = 10.6 C-REACTIVE PROTEIN) [facility]IGN[facility] [id number] 18:36:00 Test Item Value Reference Range Interpretation Comments Protein CSF (test code = Protein CSF) 14 15-45 [place] 964882-03-25 18:36:00 Test Item Value Reference Range Interpretation Comments Glucose CSF (test code = Glucose CSF) 67 45-80 [place] 964882-03-25 18:36:00 Test Item Value Reference Range Interpretation Comments Tube Num CSF (test xxxxxxx (10/06/21 1:36 code = Tube Num CSF) PM) [facility]2022-03-25 18:36:00 Test Item Value Reference Range Interpretation Comments Color CSF (test code Colorless (10/06/21 1:36 = Color CSF) PM) [facility]2022-03-25 18:36:00 Test Item Value Reference Range Interpretation Comments Clarity CSF (test code = Clear (10/06/21 1:36 Clarity CSF) PM) [facility]2022-03-25 18:36:00 Test Item Value Reference Range Interpretation Comments Supernat CSF (test Colorless (10/06/21 1:36 code = Supernat CSF) PM) [facility]2022-03-25 18:36:00 Test Item Value Reference Range Interpretation Comments Nucleated Cells CSF 0 See_Comment [Automa lester message] The (test code = Nucleated syste m which generated Cells CSF) this result tra nsmitted reference range : <=53. The reference r boubacar was not used to int erpret this result as normal/abnormal . [facility]2022-03-25 18:36:00 Test Item Value Reference Range Interpretation Comments RBC CSF (test code = 0 See_Comment [Autom ated message] The RBC CSF) system which ge nerated this result transmit lestre reference range : <=03. The reference range was not used to interpr et this result as dany l/abnormal. [facility]2022-03-25 18:36:00 Test Item Value Reference Range Interpretation Comments Comment CSF (test Differential not code = Comment CSF) performed on WBC count of less than 5. [facility] St[facility] [id number] 18:36:00 Test Item Value Reference Range Interpretation Comments Gram Stain Report Gram Stain Performed By: (test code = Gram [facility] [place] Stain Report) [facility] w/Gram [id number] 18:36:00 Test Item Value Reference Range Interpretation Comments Culture: CSF w/Gram Stain (test No Growth code = Culture: CSF w/Gram Stain) [facility]2022-03-25 18:36:00 Test Item Value Reference Range Interpretation Comments Protein CSF (test code = Protein CSF) 14 15-45 [facility]2022-03-25 18:36:00 Test Item Value Reference Range Interpretation Comments Glucose CSF (test code = Glucose CSF) 67 45-80 [facility]2022-03-25 18:36:00 Test Item Value Reference Range Interpretation Comments Tube Num CSF (test xxxxxxx (10/06/21 1:36 code = Tube Num CSF) PM) [facility]2022-03-25 18:36:00 Test Item Value Reference Range Interpretation Comments Color CSF (test code Colorless (10/06/21 1:36 = Color CSF) PM) [facility] [id number] 18:36:00 Test Item Value Reference Range Interpretation Comments Clarity CSF (test code = Clear (10/06/21 1:36 Clarity CSF) PM) [facility]2022-03-25 18:36:00 Test Item Value Reference Range Interpretation Comments Supernat CSF (test Colorless (10/06/21 1:36 code = Supernat CSF) PM) [facility]2022-03-25 18:36:00 Test Item Value Reference Range Interpretation Comments Nucleated Cells CSF 0 See_Comment [Automa lester message] The (test code = Nucleated syste m which generated Cells CSF) this result tra nsmitted reference range : <=53. The reference r boubacar was not used to int erpret this result as normal/abnormal . [facility]2022-03-25 18:36:00 Test Item Value Reference Range Interpretation Comments RBC CSF (test code = 0 See_Comment [Autom ated message] The RBC CSF) system which ge nerated this result transmit lester reference range : <=03. The reference range was not used to interpr et this result as dany l/abnormal. [facility] [id number] 18:36:00 Test Item Value Reference Range Interpretation Comments Comment CSF (test Differential not code = Comment CSF) performed on WBC count of less than 5. [facility] [id number] 18:36:00 Test Item Value Reference Range Interpretation Comments Gram Stain Report Gram Stain Performed By: (test code = Gram [facility] [place] Stain Report) [facility] w/Gram [id number] 18:36:00 Test Item Value Reference Range Interpretation Comments Culture: CSF w/Gram Stain (test No Growth code = Culture: CSF w/Gram Stain) [facility]2022-03-25 18:36:00 Test Item Value Reference Range Interpretation Comments Protein CSF (test code = Protein CSF) 14 15-45 [facility]2022-03-25 18:36:00 Test Item Value Reference Range Interpretation Comments Glucose CSF (test code = Glucose CSF) 67 45-80 [facility]2022-03-25 18:36:00 Test Item Value Reference Range Interpretation Comments Tube Num CSF (test xxxxxxx (10/06/21 1:36 code = Tube Num CSF) PM) [facility]2022-03-25 18:36:00 Test Item Value Reference Range Interpretation Comments Color CSF (test code Colorless (10/06/21 1:36 = Color CSF) PM) [facility]2022-03-25 18:36:00 Test Item Value Reference Range Interpretation Comments Clarity CSF (test code = Clear (10/06/21 1:36 Clarity CSF) PM) [facility]2022-03-25 18:36:00 Test Item Value Reference Range Interpretation Comments Supernat CSF (test Colorless (10/06/21 1:36 code = Supernat CSF) PM) [facility]2022-03-25 18:36:00 Test Item Value Reference Range Interpretation Comments Nucleated Cells CSF 0 See_Comment [Automa lester message] The (test code = Nucleated syste m which generated Cells CSF) this result tra nsmitted reference range : <=53. The reference r boubacar was not used to int erpret this result as normal/abnormal . [facility]2022-03-25 18:36:00 Test Item Value Reference Range Interpretation Comments RBC CSF (test code = 0 See_Comment [Autom ated message] The RBC CSF) system which ge nerated this result transmit lester reference range : <=03. The reference range was not used to interpr et this result as dany l/abnormal. [facility]2022-03-25 18:36:00 Test Item Value Reference Range Interpretation Comments Comment CSF (test Differential not code = Comment CSF) performed on WBC count of less than 5. [facility] [id number] 18:36:00 Test Item Value Reference Range Interpretation Comments Gram Stain Report Gram Stain Performed By: (test code = Gram [facility] Stain Report) [facility] CSF w/Gram [id number] 18:36:00 Test Item Value Reference Range Interpretation Comments Culture: CSF w/Gram Stain (test No Growth code = Culture: CSF w/Gram Stain) [facility] [id number] 18:36:00 Test Item Value Reference Range Interpretation Comments Protein CSF (test code = Protein CSF) 14 15-45 [facility] [id number] 18:36:00 Test Item Value Reference Range Interpretation Comments Glucose CSF (test code = Glucose CSF) 67 45-80 [facility]2022-03-25 18:36:00 Test Item Value Reference Range Interpretation Comments Tube Num CSF (test xxxxxxx (10/06/21 1:36 code = Tube Num CSF) PM) [facility]2022-03-25 18:36:00 Test Item Value Reference Range Interpretation Comments Color CSF (test code Colorless (10/06/21 1:36 = Color CSF) PM) [facility]2022-03-25 18:36:00 Test Item Value Reference Range Interpretation Comments Clarity CSF (test code = Clear (10/06/21 1:36 Clarity CSF) PM) [facility]2022-03-25 18:36:00 Test Item Value Reference Range Interpretation Comments Supernat CSF (test Colorless (10/06/21 1:36 code = Supernat CSF) PM) [facility]2022-03-25 18:36:00 Test Item Value Reference Range Interpretation Comments Nucleated Cells CSF 0 See_Comment [Automa lester message] The (test code = Nucleated syste m which generated Cells CSF) this result tra nsmitted reference range : <=53. The reference r boubacar was not used to int erpret this result as normal/abnormal . [facility]2022-03-25 18:36:00 Test Item Value Reference Range Interpretation Comments RBC CSF (test code = 0 See_Comment [Autom ated message] The RBC CSF) system which ge nerated this result transmit lester reference range : <=03. The reference range was not used to interpr et this result as dany l/abnormal. [facility]2022-03-25 18:36:00 Test Item Value Reference Range Interpretation Comments Comment CSF (test Differential not code = Comment CSF) performed on WBC count of less than 5. [facility] [id number] 18:36:00 Test Item Value Reference Range Interpretation Comments Gram Stain Report Gram Stain Performed By: (test code = Gram [facility] Stain Report) [facility] Hospital[facility]: CSF w/Gram [id number] 18:36:00 Test Item Value Reference Range Interpretation Comments Culture: CSF w/Gram Stain (test No Growth code = Culture: CSF w/Gram Stain) [facility] [id number] 18:36:00 Test Item Value Reference Range Interpretation Comments Protein CSF (test code = Protein CSF) 14 15-45 [facility]2022-03-25 18:36:00 Test Item Value Reference Range Interpretation Comments Glucose CSF (test code = Glucose CSF) 67 45-80 [facility]2022-03-25 18:36:00 Test Item Value Reference Range Interpretation Comments Tube Num CSF (test xxxxxxx (10/06/21 1:36 code = Tube Num CSF) PM) [facility]2022-03-25 18:36:00 Test Item Value Reference Range Interpretation Comments Color CSF (test code Colorless (10/06/21 1:36 = Color CSF) PM) [facility]2022-03-25 18:36:00 Test Item Value Reference Range Interpretation Comments Clarity CSF (test code = Clear (10/06/21 1:36 Clarity CSF) PM) [facility]2022-03-25 18:36:00 Test Item Value Reference Range Interpretation Comments Supernat CSF (test Colorless (10/06/21 1:36 code = Supernat CSF) PM) [facility]2022-03-25 18:36:00 Test Item Value Reference Range Interpretation Comments Nucleated Cells CSF 0 See_Comment [Automa lester message] The (test code = Nucleated syste m which generated Cells CSF) this result tra nsmitted reference range : <=53. The reference r boubacar was not used to int erpret this result as normal/abnormal . [facility]2022-03-25 18:36:00 Test Item Value Reference Range Interpretation Comments RBC CSF (test code = 0 See_Comment [Autom ated message] The RBC CSF) system which ge nerated this result transmit lester reference range : <=03. The reference range was not used to interpr et this result as dany l/abnormal. [facility] [id number] 18:36:00 Test Item Value Reference Range Interpretation Comments Comment CSF (test Differential not code = Comment CSF) performed on WBC count of less than 5. [facility] [id number] 18:36:00 Test Item Value Reference Range Interpretation Comments Gram Stain Report Gram Stain Performed By: (test code = Gram [facility] Stain Report) [facility] Hospital[facility]: CSF w/Gram [id number] 18:36:00 Test Item Value Reference Range Interpretation Comments Culture: CSF w/Gram Stain (test No Growth code = Culture: CSF w/Gram Stain) [facility]2022-03-25 18:36:00 Test Item Value Reference Range Interpretation Comments Protein CSF (test code = Protein CSF) 14 15-45 [facility]2022-03-25 18:36:00 Test Item Value Reference Range Interpretation Comments Glucose CSF (test code = Glucose CSF) 67 45-80 [facility]2022-03-25 18:36:00 Test Item Value Reference Range Interpretation Comments Tube Num CSF (test xxxxxxx (10/06/21 1:36 code = Tube Num CSF) PM) [facility]2022-03-25 18:36:00 Test Item Value Reference Range Interpretation Comments Color CSF (test code Colorless (10/06/21 1:36 = Color CSF) PM) [facility]2022-03-25 18:36:00 Test Item Value Reference Range Interpretation Comments Clarity CSF (test code = Clear (10/06/21 1:36 Clarity CSF) PM) [facility]2022-03-25 18:36:00 Test Item Value Reference Range Interpretation Comments Supernat CSF (test Colorless (10/06/21 1:36 code = Supernat CSF) PM) [facility]2022-03-25 18:36:00 Test Item Value Reference Range Interpretation Comments Nucleated Cells CSF 0 See_Comment [Automa lester message] The (test code = Nucleated syste m which generated Cells CSF) this result tra nsmitted reference range : <=53. The reference r boubacar was not used to int erpret this result as normal/abnormal . [facility]2022-03-25 18:36:00 Test Item Value Reference Range Interpretation Comments RBC CSF (test code = 0 See_Comment [Autom ated message] The RBC CSF) system which ge nerated this result transmit lester reference range : <=03. The reference range was not used to interpr et this result as dany l/abnormal. [facility]2022-03-25 18:36:00 Test Item Value Reference Range Interpretation Comments Comment CSF (test Differential not code = Comment CSF) performed on WBC count of less than 5. [facility] [id number] 18:36:00 Test Item Value Reference Range Interpretation Comments Gram Stain Report Gram Stain Performed By: (test code = Gram [facility] Stain Report) [facility]: CSF w/Gram [id number] 18:36:00 Test Item Value Reference Range Interpretation Comments Culture: CSF w/Gram Stain (test No Growth code = Culture: CSF w/Gram Stain) [facility]2022-03-25 18:36:00 Test Item Value Reference Range Interpretation Comments Protein CSF (test code = Protein CSF) 14 15-45 [facility]2022-03-25 18:36:00 Test Item Value Reference Range Interpretation Comments Glucose CSF (test code = Glucose CSF) 67 45-80 [facility]2022-03-25 18:36:00 Test Item Value Reference Range Interpretation Comments Tube Num CSF (test xxxxxxx (10/06/21 1:36 code = Tube Num CSF) PM) [facility]2022-03-25 18:36:00 Test Item Value Reference Range Interpretation Comments Color CSF (test code Colorless (10/06/21 1:36 = Color CSF) PM) [facility]2022-03-25 18:36:00 Test Item Value Reference Range Interpretation Comments Clarity CSF (test code = Clear (10/06/21 1:36 Clarity CSF) PM) [facility]2022-03-25 18:36:00 Test Item Value Reference Range Interpretation Comments Supernat CSF (test Colorless (10/06/21 1:36 code = Supernat CSF) PM) [facility]2022-03-25 18:36:00 Test Item Value Reference Range Interpretation Comments Nucleated Cells CSF 0 See_Comment [Automa lester message] The (test code = Nucleated syste m which generated Cells CSF) this result tra nsmitted reference range : <=53. The reference r boubacar was not used to int erpret this result as normal/abnormal . [facility] [id number] 18:36:00 Test Item Value Reference Range Interpretation Comments RBC CSF (test code = 0 See_Comment [Autom ated message] The RBC CSF) system which ge nerated this result transmit lester reference range : <=03. The reference range was not used to interpr et this result as dany l/abnormal. [facility] [id number] 18:36:00 Test Item Value Reference Range Interpretation Comments Comment CSF (test Differential not code = Comment CSF) performed on WBC count of less than 5. [facility] [id number] 18:36:00 Test Item Value Reference Range Interpretation Comments Gram Stain Report Gram Stain Performed By: (test code = Gram [facility] [place] Stain Report) [facility]: CSF w/Gram [id number] 18:36:00 Test Item Value Reference Range Interpretation Comments Culture: CSF w/Gram Stain (test No Growth code = Culture: CSF w/Gram Stain) [facility] BrookGxrvuhrTJGXPTFNUR8401-88-28 08:28:00 Test Item Value Reference Range Interpretation Comments Coronavirus (COVID-19) Not Detected (10/06/21 OUMOU (test code = 3:28 AM) Coronavirus (COVID-19) OUMOU) [place] [address]-03-25 08:28:00 Test Item Value Reference Range Interpretation Comments Coronavirus (COVID-19) Not Detected (10/06/21 OUMOU (test code = 3:28 AM) Coronavirus (COVID-19) OUMOU) [facility]SbcykdeXYAHBCXDJK7218-07-23 08:28:00 Test Item Value Reference Range Interpretation Comments Coronavirus (COVID-19) Not Detected (10/06/21 OUMOU (test code = 3:28 AM) Coronavirus (COVID-19) OUMOU) [facility] BrookYkqnwofYECOZCBUWH1140-52-71 08:28:00 Test Item Value Reference Range Interpretation Comments Coronavirus (COVID-19) Not Detected (10/06/21 OUMOU (test code = 3:28 AM) Coronavirus (COVID-19) OUMOU) [facility]udaNpttupiTDSLDBRUPY4941-05-98 08:28:00 Test Item Value Reference Range Interpretation Comments Coronavirus (COVID-19) Not Detected (10/06/21 OUMOU (test code = 3:28 AM) Coronavirus (COVID-19) OUMOU) [facility]udaTpcywgnDBPWFJMSNN2264-62-75 08:28:00 Test Item Value Reference Range Interpretation Comments Coronavirus (COVID-19) Not Detected (10/06/21 OUMOU (test code = 3:28 AM) Coronavirus (COVID-19) OUMOU) [facility]udaQkjvkbbHIQGAGTGOP2940-78-65 08:28:00 Test Item Value Reference Range Interpretation Comments Coronavirus (COVID-19) Not Detected (10/06/21 OUMOU (test code = 3:28 AM) Coronavirus (COVID-19) OUMOU) [facility]inte[facility]elebCallsShopEx [facility] [id number] 06:48:00 Test Item Value Reference Range Interpretation Comments Antibody Scrn (test Negative (10/06/21 1:48 code = Antibody Scrn) AM) [facility] [id number] 06:48:00 Test Item Value Reference Range Interpretation Comments ABO/Rh (test code = ABO/Rh) AB POS [facility] HospitalVwoegnyBUUECJVJYE9403-46-14 06:48:00 Test Item Value Reference Range Interpretation Comments Segs (test code = Segs) 70.8 45.0-75.0 [facility] HospitalKkgipdaINNPKJXRDD5691-58-97 06:48:00 Test Item Value Reference Range Interpretation Comments Lymphocytes (test code = Lymphocytes) 20.8 20.0-40.0 [facility] HospitalKyzbobmXDEIQKXFYQ7144-78-98 06:48:00 Test Item Value Reference Range Interpretation Comments Monocytes (test code = Monocytes) 5.8 2.0-12.0 [facility] HospitalIgfybpyYPULDKJSTX6061-75-94 06:48:00 Test Item Value Reference Range Interpretation Comments Eosinophils (test code = 2.3 See_Comment [A utomated message] The Eosinophils) system which ge nerated this result tra nsmitted reference range : <=4.0. The reference r boubacar was not used to int erpret this result as normal/abnormal . [facility] HospitalLsqweqzIRPNLXQHTG8547-85-11 06:48:00 Test Item Value Reference Range Interpretation Comments Basophils (test code = 0.3 See_Comment [Aut omated message] The Basophils) system which ge nerated this result tra nsmitted reference range : <=1.0. The reference r boubacar was not used to int erpret this result as normal/abnormal . [facility] HospitalUmdnqyiUFGMVMEULO2401-90-68 06:48:00 Test Item Value Reference Range Interpretation Comments Neutrophils # (test code = Neutrophils 8.4 1.5-8.1 #) [facility] HospitalKvpzjqkNBNVXREBUZ9250-79-07 06:48:00 Test Item Value Reference Range Interpretation Comments Lymphocytes # (test code = Lymphocytes 2.5 1.0-5.5 #) [place] 357782-03-25 06:48:00 Test Item Value Reference Range Interpretation Comments Monocytes # (test code 0.7 See_Comment [Aut omated message] The = Monocytes #) system which generated this result tra nsmitted reference range : <=0.8. The reference r boubacar was not used to int erpret this result as normal/abnormal . [facility] HospitalHxoepryVHEZFQHEGF0864-51-58 06:48:00 Test Item Value Reference Range Interpretation Comments Eosinophils # (test code 0.3 See_Comment [A utomated message] The = Eosinophils #) system whic h generated this result tra nsmitted reference range : <=0.5. The reference r boubacar was not used to int erpret this result as normal/abnormal . [facility] HospitalWgepmbdILXGGVEQZU9428-98-33 06:48:00 Test Item Value Reference Range Interpretation Comments WBC X 10x3 (test code = WBC X 10x3) 11.9 3.7-10.4 [place] 357782-03-25 06:48:00 Test Item Value Reference Range Interpretation Comments RBC X 10x6 (test code = RBC X 10x6) 5.95 4.70-6.10 [place] 357782-03-25 06:48:00 Test Item Value Reference Range Interpretation Comments Hgb (test code = Hgb) 17.9 14.0-18.0 [place] 357782-03-25 06:48:00 Test Item Value Reference Range Interpretation Comments Hct (test code = Hct) 52.0 42.0-54.0 [place] 357782-03-25 06:48:00 Test Item Value Reference Range Interpretation Comments MCV (test code = MCV) 87.5 80.0-94.0 [facility]inteLbnsqnvHOCLDGWQQS1168-56-82 06:48:00 Test Item Value Reference Range Interpretation Comments MCH (test code = MCH) 30.2 pg 27.0-31.0 [facility] BrookBskrlyiMNNDOJGJHQ2277-20-13 06:48:00 Test Item Value Reference Range Interpretation Comments MCHC (test code = MCHC) 34.5 32.0-36.0 [facility] BrookTlqzhpwLGDFLRYISE7796-11-22 06:48:00 Test Item Value Reference Range Interpretation Comments RDW (test code = RDW) 15.4 11.5-14.5 [facility] PointeWpzmmyjGFWFUNRGAA0605-34-51 06:48:00 Test Item Value Reference Range Interpretation Comments Platelet (test code = Platelet) 414 133-450 [facility] PointeKvjcqigKXXPHEMDBT8130-01-50 06:48:00 Test Item Value Reference Range Interpretation Comments MPV (test code = MPV) 8.5 7.4-10.4 [facility] PointeIxhoowuFUGQCZWPHV4229-96-30 06:48:00 Test Item Value Reference Range Interpretation Comments PT (test code = PT) 12.9 s 12.0-14.7 [facility] PointeBnpovneOFJMVCCPNE3999-29-40 06:48:00 Test Item Value Reference Range Interpretation Comments INR (test code = INR) 0.98 1 0.85-1.17 [facility] PointeNqoowxpSZDXFJOKIQ6009-26-76 06:48:00 Test Item Value Reference Range Interpretation Comments PTT (test code = PTT) 31.4 s 22.9-35.8 [facility] [employer] [id number] 06:48:00 Test Item Value Reference Range Interpretation Comments Antibody Scrn (test Negative (10/06/21 1:48 code = Antibody Scrn) AM) [facility] [employer] [id number] 06:48:00 Test Item Value Reference Range Interpretation Comments ABO/Rh (test code = ABO/Rh) AB POS [facility] PointeRkiztjxJJXBNHPSIA9429-81-47 06:48:00 Test Item Value Reference Range Interpretation Comments Segs (test code = Segs) 70.8 45.0-75.0 [facility] PointeBazatcrDXBPQTRPIN9218-67-31 06:48:00 Test Item Value Reference Range Interpretation Comments Lymphocytes (test code = Lymphocytes) 20.8 20.0-40.0 [place] [address]-03-25 06:48:00 Test Item Value Reference Range Interpretation Comments Monocytes (test code = Monocytes) 5.8 2.0-12.0 [place] [address]-03-25 06:48:00 Test Item Value Reference Range Interpretation Comments Eosinophils (test code = 2.3 See_Comment [A utomated message] The Eosinophils) system which ge nerated this result tra nsmitted reference range : <=4.0. The reference r boubacar was not used to int erpret this result as normal/abnormal . [place] [address]-03-25 06:48:00 Test Item Value Reference Range Interpretation Comments Basophils (test code = 0.3 See_Comment [Aut omated message] The Basophils) system which ge nerated this result tra nsmitted reference range : <=1.0. The reference r boubacar was not used to int erpret this result as normal/abnormal . [place] 357782-03-25 06:48:00 Test Item Value Reference Range Interpretation Comments Neutrophils # (test code = Neutrophils 8.4 1.5-8.1 #) [place] [address]-03-25 06:48:00 Test Item Value Reference Range Interpretation Comments Lymphocytes # (test code = Lymphocytes 2.5 1.0-5.5 #) [place] [address]-03-25 06:48:00 Test Item Value Reference Range Interpretation Comments Monocytes # (test code 0.7 See_Comment [Aut omated message] The = Monocytes #) system which generated this result tra nsmitted reference range : <=0.8. The reference r boubacar was not used to int erpret this result as normal/abnormal . [place] [address]-03-25 06:48:00 Test Item Value Reference Range Interpretation Comments Eosinophils # (test code 0.3 See_Comment [A utomated message] The = Eosinophils #) system whic h generated this result tra nsmitted reference range : <=0.5. The reference r boubacar was not used to int erpret this result as normal/abnormal . [place] 357782-03-25 06:48:00 Test Item Value Reference Range Interpretation Comments WBC X 10x3 (test code = WBC X 10x3) 11.9 3.7-10.4 [facility] HospitalGovblfxFWKPUFCRFK8448-22-39 06:48:00 Test Item Value Reference Range Interpretation Comments RBC X 10x6 (test code = RBC X 10x6) 5.95 4.70-6.10 [facility] HospitalOyzxhriZEXRKWVGXA6833-42-19 06:48:00 Test Item Value Reference Range Interpretation Comments Hgb (test code = Hgb) 17.9 14.0-18.0 [facility] HospitalXbpdjjuHKQLGIAMKL4092-10-74 06:48:00 Test Item Value Reference Range Interpretation Comments Hct (test code = Hct) 52.0 42.0-54.0 [facility] HospitalQgeohgiSDDGWYDUDK9333-49-89 06:48:00 Test Item Value Reference Range Interpretation Comments MCV (test code = MCV) 87.5 80.0-94.0 [facility] HospitalEahegndNGROBBKLXP5739-39-55 06:48:00 Test Item Value Reference Range Interpretation Comments MCH (test code = MCH) 30.2 pg 27.0-31.0 [facility] HospitalMmxorlxFUJVAJEQIO5912-18-71 06:48:00 Test Item Value Reference Range Interpretation Comments MCHC (test code = MCHC) 34.5 32.0-36.0 [facility] HospitalBylqjixVMCWLNQHFI6922-34-17 06:48:00 Test Item Value Reference Range Interpretation Comments RDW (test code = RDW) 15.4 11.5-14.5 [facility] HospitalQhylnrzDHGFRDPJMD2865-88-08 06:48:00 Test Item Value Reference Range Interpretation Comments Platelet (test code = Platelet) 414 133-450 [facility] HospitalDcktzbbINEJEPFOBC0958-11-96 06:48:00 Test Item Value Reference Range Interpretation Comments MPV (test code = MPV) 8.5 7.4-10.4 [facility] HospitalVluhvpcQCADPKHQZX0139-76-06 06:48:00 Test Item Value Reference Range Interpretation Comments PT (test code = PT) 12.9 s 12.0-14.7 [place] 357782-03-25 06:48:00 Test Item Value Reference Range Interpretation Comments INR (test code = INR) 0.98 1 0.85-1.17 [facility] HospitalJybpdlqEREQCMYDJC9231-70-71 06:48:00 Test Item Value Reference Range Interpretation Comments PTT (test code = PTT) 31.4 s 22.9-35.8 [facility] [id number] 06:48:00 Test Item Value Reference Range Interpretation Comments Antibody Scrn (test Negative (10/06/21 1:48 code = Antibody Scrn) AM) [facility] [id number] 06:48:00 Test Item Value Reference Range Interpretation Comments ABO/Rh (test code = ABO/Rh) AB POS [facility]PtmsegjNAOORRGXLO6624-29-13 06:48:00 Test Item Value Reference Range Interpretation Comments Segs (test code = Segs) 70.8 45.0-75.0 [facility] HospitalKtplkdrFYKSAKMUZR9762-37-34 06:48:00 Test Item Value Reference Range Interpretation Comments Lymphocytes (test code = Lymphocytes) 20.8 20.0-40.0 [facility] HospitalNwpfczlPLMSHCRHHQ8325-84-41 06:48:00 Test Item Value Reference Range Interpretation Comments Monocytes (test code = Monocytes) 5.8 2.0-12.0 [facility] HospitalSuvhuqoHDUIGFFAFT6367-50-92 06:48:00 Test Item Value Reference Range Interpretation Comments Eosinophils (test code = 2.3 See_Comment [A utomated message] The Eosinophils) system which ge nerated this result tra nsmitted reference range : <=4.0. The reference r boubacar was not used to int erpret this result as normal/abnormal . [facility] HospitalIkelvstHBHEIHZBRW5010-30-20 06:48:00 Test Item Value Reference Range Interpretation Comments Basophils (test code = 0.3 See_Comment [Aut omated message] The Basophils) system which ge nerated this result tra nsmitted reference range : <=1.0. The reference r boubacar was not used to int erpret this result as normal/abnormal . [facility] HospitalJfrpoekYXXTXBSZBO4732-48-34 06:48:00 Test Item Value Reference Range Interpretation Comments Neutrophils # (test code = Neutrophils 8.4 1.5-8.1 #) [facility] HospitalWuhkrcmFPXJAKAXQP2455-09-40 06:48:00 Test Item Value Reference Range Interpretation Comments Lymphocytes # (test code = Lymphocytes 2.5 1.0-5.5 #) [facility] HospitalIvmjbhnQRSOUHLXHJ9162-88-89 06:48:00 Test Item Value Reference Range Interpretation Comments Monocytes # (test code 0.7 See_Comment [Aut omated message] The = Monocytes #) system which generated this result tra nsmitted reference range : <=0.8. The reference r boubacar was not used to int erpret this result as normal/abnormal . [facility] HospitalOhjbfvwJBTMQQPMPX4990-84-97 06:48:00 Test Item Value Reference Range Interpretation Comments Eosinophils # (test code 0.3 See_Comment [A utomated message] The = Eosinophils #) system whic h generated this result tra nsmitted reference range : <=0.5. The reference r boubacar was not used to int erpret this result as normal/abnormal . [facility] HospitalQxmnjayKERXTFKIEK1723-02-73 06:48:00 Test Item Value Reference Range Interpretation Comments WBC X 10x3 (test code = WBC X 10x3) 11.9 3.7-10.4 [facility] HospitalYtsekzcEHLEZEDSBG4517-43-84 06:48:00 Test Item Value Reference Range Interpretation Comments RBC X 10x6 (test code = RBC X 10x6) 5.95 4.70-6.10 [facility] HospitalMwiifqwOICEZHDKQA5495-10-02 06:48:00 Test Item Value Reference Range Interpretation Comments Hgb (test code = Hgb) 17.9 14.0-18.0 [facility] HospitalTqsunpfNYJXDFHXVF3870-86-29 06:48:00 Test Item Value Reference Range Interpretation Comments Hct (test code = Hct) 52.0 42.0-54.0 [facility] HospitalAtstacpLOCEHBIEAF4287-33-60 06:48:00 Test Item Value Reference Range Interpretation Comments MCV (test code = MCV) 87.5 80.0-94.0 [facility] HospitalDflmxgjHWOVISPQCZ1539-37-61 06:48:00 Test Item Value Reference Range Interpretation Comments MCH (test code = MCH) 30.2 pg 27.0-31.0 [facility] HospitalBcnunhqXSCSAZRCLR6003-58-07 06:48:00 Test Item Value Reference Range Interpretation Comments MCHC (test code = MCHC) 34.5 32.0-36.0 [facility] HospitalIupvruqBDHDMYIBCD2710-10-15 06:48:00 Test Item Value Reference Range Interpretation Comments RDW (test code = RDW) 15.4 11.5-14.5 [facility] HospitalQmywsjnGCDRUEEPYV4262-73-03 06:48:00 Test Item Value Reference Range Interpretation Comments Platelet (test code = Platelet) 414 133-450 [facility] HospitalElkxgejILQQQONFEB4536-41-93 06:48:00 Test Item Value Reference Range Interpretation Comments MPV (test code = MPV) 8.5 7.4-10.4 [facility] HospitalBffkitaGURCWEONZB3670-85-81 06:48:00 Test Item Value Reference Range Interpretation Comments PT (test code = PT) 12.9 s 12.0-14.7 [facility] HospitalPxllwujTQKXFIHFIZ2380-75-53 06:48:00 Test Item Value Reference Range Interpretation Comments INR (test code = INR) 0.98 1 0.85-1.17 [facility] HospitalRxwmzrtTCQCMEKARV8231-43-50 06:48:00 Test Item Value Reference Range Interpretation Comments PTT (test code = PTT) 31.4 s 22.9-35.8 [facility]2022-03-25 06:48:00 Test Item Value Reference Range Interpretation Comments Antibody Scrn (test Negative (10/06/21 1:48 code = Antibody Scrn) AM) [facility]2022-03-25 06:48:00 Test Item Value Reference Range Interpretation Comments ABO/Rh (test code = ABO/Rh) AB POS [facility] HospitalPxabzvuSJYLUPMFQS5508-67-79 06:48:00 Test Item Value Reference Range Interpretation Comments Segs (test code = Segs) 70.8 45.0-75.0 [facility] HospitalSmvxyskRNRAUILVPQ3655-38-86 06:48:00 Test Item Value Reference Range Interpretation Comments Lymphocytes (test code = Lymphocytes) 20.8 20.0-40.0 [facility] HospitalLmlwlhrNUJBARTWQP6337-99-70 06:48:00 Test Item Value Reference Range Interpretation Comments Monocytes (test code = Monocytes) 5.8 2.0-12.0 [facility] HospitalDwncjdxKKDIIAOYZR6674-38-12 06:48:00 Test Item Value Reference Range Interpretation Comments Eosinophils (test code = 2.3 See_Comment [A utomated message] The Eosinophils) system which ge nerated this result tra nsmitted reference range : <=4.0. The reference r boubacar was not used to int erpret this result as normal/abnormal . [facility] HospitalWwvewyjFSAVTIOWEH9849-99-96 06:48:00 Test Item Value Reference Range Interpretation Comments Basophils (test code = 0.3 See_Comment [Aut omated message] The Basophils) system which ge nerated this result tra nsmitted reference range : <=1.0. The reference r boubacar was not used to int erpret this result as normal/abnormal . [place] 357782-03-25 06:48:00 Test Item Value Reference Range Interpretation Comments Neutrophils # (test code = Neutrophils 8.4 1.5-8.1 #) [place] 357782-03-25 06:48:00 Test Item Value Reference Range Interpretation Comments Lymphocytes # (test code = Lymphocytes 2.5 1.0-5.5 #) [place] 357782-03-25 06:48:00 Test Item Value Reference Range Interpretation Comments Monocytes # (test code 0.7 See_Comment [Aut omated message] The = Monocytes #) system which generated this result tra nsmitted reference range : <=0.8. The reference r boubacar was not used to int erpret this result as normal/abnormal . [place] 357782-03-25 06:48:00 Test Item Value Reference Range Interpretation Comments Eosinophils # (test code 0.3 See_Comment [A utomated message] The = Eosinophils #) system whic h generated this result tra nsmitted reference range : <=0.5. The reference r boubacar was not used to int erpret this result as normal/abnormal . [facility] HospitalEocbupdKAUYWAJUMS3280-79-06 06:48:00 Test Item Value Reference Range Interpretation Comments WBC X 10x3 (test code = WBC X 10x3) 11.9 3.7-10.4 [place] 357782-03-25 06:48:00 Test Item Value Reference Range Interpretation Comments RBC X 10x6 (test code = RBC X 10x6) 5.95 4.70-6.10 [place] 357782-03-25 06:48:00 Test Item Value Reference Range Interpretation Comments Hgb (test code = Hgb) 17.9 14.0-18.0 [place] 357782-03-25 06:48:00 Test Item Value Reference Range Interpretation Comments Hct (test code = Hct) 52.0 42.0-54.0 [place] [address]-03-25 06:48:00 Test Item Value Reference Range Interpretation Comments MCV (test code = MCV) 87.5 80.0-94.0 [place] 357782-03-25 06:48:00 Test Item Value Reference Range Interpretation Comments MCH (test code = MCH) 30.2 pg 27.0-31.0 [facility]whpxmwQFOUJTEIRR1129-55-91 06:48:00 Test Item Value Reference Range Interpretation Comments MCHC (test code = MCHC) 34.5 32.0-36.0 [facility]inteBlreexsZYATUGHELB0588-29-35 06:48:00 Test Item Value Reference Range Interpretation Comments RDW (test code = RDW) 15.4 11.5-14.5 [facility]inteSbpngzsDBAVYSIRHZ7842-75-12 06:48:00 Test Item Value Reference Range Interpretation Comments Platelet (test code = Platelet) 414 133-450 [facility] PointeJmiukosFMECRZXZRH0745-37-97 06:48:00 Test Item Value Reference Range Interpretation Comments MPV (test code = MPV) 8.5 7.4-10.4 [facility] PointeRxzlzpaRQPFBRGUKC0490-53-39 06:48:00 Test Item Value Reference Range Interpretation Comments PT (test code = PT) 12.9 s 12.0-14.7 [facility]inteGtosklxTKJLBQNISE4671-10-50 06:48:00 Test Item Value Reference Range Interpretation Comments INR (test code = INR) 0.98 1 0.85-1.17 [facility] PointePfyskxoZLBKUZCCYM2391-84-45 06:48:00 Test Item Value Reference Range Interpretation Comments PTT (test code = PTT) 31.4 s 22.9-35.8 [facility] [employer] NRYOGFM4888-46-54 06:48:00 Test Item Value Reference Range Interpretation Comments Antibody Scrn (test Negative (10/06/21 1:48 code = Antibody Scrn) AM) [facility] [employer] GSPKCRR1666-58-25 06:48:00 Test Item Value Reference Range Interpretation Comments ABO/Rh (test code = ABO/Rh) AB POS [facility]inteMqcvoqyOVRMQVDEJE4975-80-99 06:48:00 Test Item Value Reference Range Interpretation Comments Segs (test code = Segs) 70.8 45.0-75.0 [facility] PointeAunpseiTTUJQHSPEF3912-34-15 06:48:00 Test Item Value Reference Range Interpretation Comments Lymphocytes (test code = Lymphocytes) 20.8 20.0-40.0 [facility] PointeLlgoystTDUSDWGSDV0574-16-13 06:48:00 Test Item Value Reference Range Interpretation Comments Monocytes (test code = Monocytes) 5.8 2.0-12.0 [place] 357782-03-25 06:48:00 Test Item Value Reference Range Interpretation Comments Eosinophils (test code = 2.3 See_Comment [A utomated message] The Eosinophils) system which ge nerated this result tra nsmitted reference range : <=4.0. The reference r boubacar was not used to int erpret this result as normal/abnormal . [place] 357782-03-25 06:48:00 Test Item Value Reference Range Interpretation Comments Basophils (test code = 0.3 See_Comment [Aut omated message] The Basophils) system which ge nerated this result tra nsmitted reference range : <=1.0. The reference r boubacar was not used to int erpret this result as normal/abnormal . [place] 357782-03-25 06:48:00 Test Item Value Reference Range Interpretation Comments Neutrophils # (test code = Neutrophils 8.4 1.5-8.1 #) [place] 357782-03-25 06:48:00 Test Item Value Reference Range Interpretation Comments Lymphocytes # (test code = Lymphocytes 2.5 1.0-5.5 #) [place] 357782-03-25 06:48:00 Test Item Value Reference Range Interpretation Comments Monocytes # (test code 0.7 See_Comment [Aut omated message] The = Monocytes #) system which generated this result tra nsmitted reference range : <=0.8. The reference r boubacar was not used to int erpret this result as normal/abnormal . [place] 357782-03-25 06:48:00 Test Item Value Reference Range Interpretation Comments Eosinophils # (test code 0.3 See_Comment [A utomated message] The = Eosinophils #) system whic h generated this result tra nsmitted reference range : <=0.5. The reference r boubacar was not used to int erpret this result as normal/abnormal . [place] 357782-03-25 06:48:00 Test Item Value Reference Range Interpretation Comments WBC X 10x3 (test code = WBC X 10x3) 11.9 3.7-10.4 [place] 357782-03-25 06:48:00 Test Item Value Reference Range Interpretation Comments RBC X 10x6 (test code = RBC X 10x6) 5.95 4.70-6.10 [facility]ocKTCDHLRGNG6213-94-08 06:48:00 Test Item Value Reference Range Interpretation Comments Hgb (test code = Hgb) 17.9 14.0-18.0 [facility] HospitalDkinhbaFCLHXGTGSH4885-64-23 06:48:00 Test Item Value Reference Range Interpretation Comments Hct (test code = Hct) 52.0 42.0-54.0 [facility] HospitalZtglsnjSEUZRKBSRF6003-38-29 06:48:00 Test Item Value Reference Range Interpretation Comments MCV (test code = MCV) 87.5 80.0-94.0 [facility]MunwjlrFZAOXKWKMP8379-18-37 06:48:00 Test Item Value Reference Range Interpretation Comments MCH (test code = MCH) 30.2 pg 27.0-31.0 [facility] MichiganNaszomyFKIJKIURBB5363-03-06 06:48:00 Test Item Value Reference Range Interpretation Comments MCHC (test code = MCHC) 34.5 32.0-36.0 [facility] HospitalIhfhmudGGUTJSUJMI9281-98-60 06:48:00 Test Item Value Reference Range Interpretation Comments RDW (test code = RDW) 15.4 11.5-14.5 [facility] HospitalXundbnhPPAZMMXYMG5516-86-54 06:48:00 Test Item Value Reference Range Interpretation Comments Platelet (test code = Platelet) 414 133-450 [facility] HospitalOrubqnzWIYQEVGMDZ9038-69-42 06:48:00 Test Item Value Reference Range Interpretation Comments MPV (test code = MPV) 8.5 7.4-10.4 [facility] HospitalOzudofzYETYBONIVP0421-26-87 06:48:00 Test Item Value Reference Range Interpretation Comments PT (test code = PT) 12.9 s 12.0-14.7 [facility] HospitalPdjxjrrQJYJEACTZN9475-49-29 06:48:00 Test Item Value Reference Range Interpretation Comments INR (test code = INR) 0.98 1 0.85-1.17 [facility] HospitalVddwnekQXZIOKLUVH8925-77-90 06:48:00 Test Item Value Reference Range Interpretation Comments PTT (test code = PTT) 31.4 s 22.9-35.8 [facility] WSLRJLQ4919-20-21 06:48:00 Test Item Value Reference Range Interpretation Comments Antibody Scrn (test Negative (3/25/22 1:48 code = Antibody Scrn) AM) [facility] HKCNFDD3815-71-31 06:48:00 Test Item Value Reference Range Interpretation Comments ABO/Rh (test code = ABO/Rh) AB POS [facility] HospitalZchzhpoLFEKJNBSSB2425-97-96 06:48:00 Test Item Value Reference Range Interpretation Comments Segs (test code = Segs) 70.8 45.0-75.0 [facility] HospitalFyeacooYMAJBMQAMU1771-46-30 06:48:00 Test Item Value Reference Range Interpretation Comments Lymphocytes (test code = Lymphocytes) 20.8 20.0-40.0 [facility] HospitalLgmkhauTKCPAYLIKG0192-19-00 06:48:00 Test Item Value Reference Range Interpretation Comments Monocytes (test code = Monocytes) 5.8 2.0-12.0 [facility] HospitalUokwbkiAWLKDUBWJU8696-67-93 06:48:00 Test Item Value Reference Range Interpretation Comments Eosinophils (test code = 2.3 See_Comment [A utomated message] The Eosinophils) system which ge nerated this result tra nsmitted reference range : <=4.0. The reference r boubacar was not used to int erpret this result as normal/abnormal . [facility] HospitalAdxubxdPFCPLTBMWK6056-39-97 06:48:00 Test Item Value Reference Range Interpretation Comments Basophils (test code = 0.3 See_Comment [Aut omated message] The Basophils) system which ge nerated this result tra nsmitted reference range : <=1.0. The reference r boubacar was not used to int erpret this result as normal/abnormal . [facility] HospitalWyihwmsLEOCRHFLRN6668-66-65 06:48:00 Test Item Value Reference Range Interpretation Comments Neutrophils # (test code = Neutrophils 8.4 1.5-8.1 #) [facility] HospitalObmvmjoOFKPMHHRUH0100-46-16 06:48:00 Test Item Value Reference Range Interpretation Comments Lymphocytes # (test code = Lymphocytes 2.5 1.0-5.5 #) [facility] HospitalZwxbfvfEXFDCWWXSP3574-01-34 06:48:00 Test Item Value Reference Range Interpretation Comments Monocytes # (test code 0.7 See_Comment [Aut omated message] The = Monocytes #) system which generated this result tra nsmitted reference range : <=0.8. The reference r boubacar was not used to int erpret this result as normal/abnormal . [facility] HospitalBpziobuNQUAPFQLLJ5332-58-20 06:48:00 Test Item Value Reference Range Interpretation Comments Eosinophils # (test code 0.3 See_Comment [A utomated message] The = Eosinophils #) system whic h generated this result tra nsmitted reference range : <=0.5. The reference r boubacar was not used to int erpret this result as normal/abnormal . [facility] HospitalOjzoghaMTIUYSCEIR5950-02-27 06:48:00 Test Item Value Reference Range Interpretation Comments WBC X 10x3 (test code = WBC X 10x3) 11.9 3.7-10.4 [facility] HospitalJvifouxSQDIBTTLDC6535-61-16 06:48:00 Test Item Value Reference Range Interpretation Comments RBC X 10x6 (test code = RBC X 10x6) 5.95 4.70-6.10 [place] 357782-03-25 06:48:00 Test Item Value Reference Range Interpretation Comments Hgb (test code = Hgb) 17.9 14.0-18.0 [facility] HospitalGiiztobDSUHVJPXDW2256-46-10 06:48:00 Test Item Value Reference Range Interpretation Comments Hct (test code = Hct) 52.0 42.0-54.0 [place] 357782-03-25 06:48:00 Test Item Value Reference Range Interpretation Comments MCV (test code = MCV) 87.5 80.0-94.0 [place] 357782-03-25 06:48:00 Test Item Value Reference Range Interpretation Comments MCH (test code = MCH) 30.2 pg 27.0-31.0 [facility] HospitalPpaweuoYNTPWJDJSJ8814-47-51 06:48:00 Test Item Value Reference Range Interpretation Comments MCHC (test code = MCHC) 34.5 32.0-36.0 [place] 357782-03-25 06:48:00 Test Item Value Reference Range Interpretation Comments RDW (test code = RDW) 15.4 11.5-14.5 [facility] HospitalYugnevbBCDIGYDRZU0220-31-92 06:48:00 Test Item Value Reference Range Interpretation Comments Platelet (test code = Platelet) 414 133-450 [facility] HospitalXjpnbqeKEBAQBPVWX1903-49-60 06:48:00 Test Item Value Reference Range Interpretation Comments MPV (test code = MPV) 8.5 7.4-10.4 [facility] HospitalJbleeekSLTLYTOHMR1250-67-33 06:48:00 Test Item Value Reference Range Interpretation Comments PT (test code = PT) 12.9 s 12.0-14.7 [facility] HospitalHemvnipCHYRPPGIQD4717-57-31 06:48:00 Test Item Value Reference Range Interpretation Comments INR (test code = INR) 0.98 1 0.85-1.17 [facility] HospitalUcounafSNAZHAMUQH3329-39-43 06:48:00 Test Item Value Reference Range Interpretation Comments PTT (test code = PTT) 31.4 s 22.9-35.8 [facility] TRWENJG1095-01-92 06:48:00 Test Item Value Reference Range Interpretation Comments Antibody Scrn (test Negative (10/06/21 1:48 code = Antibody Scrn) AM) [facility] NPHFZDZ1869-16-50 06:48:00 Test Item Value Reference Range Interpretation Comments ABO/Rh (test code = ABO/Rh) AB POS [facility] HospitalObotgbaIVWISOROWR6050-80-17 06:48:00 Test Item Value Reference Range Interpretation Comments Segs (test code = Segs) 70.8 45.0-75.0 [facility] HospitalLitmjlgHWTPYTHCIC3142-08-11 06:48:00 Test Item Value Reference Range Interpretation Comments Lymphocytes (test code = Lymphocytes) 20.8 20.0-40.0 [facility] HospitalLladtwvHEOGGBZDXR5571-98-00 06:48:00 Test Item Value Reference Range Interpretation Comments Monocytes (test code = Monocytes) 5.8 2.0-12.0 [facility] HospitalKthiurrKYUWQHYHQC3632-91-51 06:48:00 Test Item Value Reference Range Interpretation Comments Eosinophils (test code = 2.3 See_Comment [A utomated message] The Eosinophils) system which ge nerated this result tra nsmitted reference range : <=4.0. The reference r boubacar was not used to int erpret this result as normal/abnormal . [facility] HospitalMxmhndxTDXLIWVACK7744-17-53 06:48:00 Test Item Value Reference Range Interpretation Comments Basophils (test code = 0.3 See_Comment [Aut omated message] The Basophils) system which ge nerated this result tra nsmitted reference range : <=1.0. The reference r boubacar was not used to int erpret this result as normal/abnormal . [place] 357782-03-25 06:48:00 Test Item Value Reference Range Interpretation Comments Neutrophils # (test code = Neutrophils 8.4 1.5-8.1 #) [place] 357782-03-25 06:48:00 Test Item Value Reference Range Interpretation Comments Lymphocytes # (test code = Lymphocytes 2.5 1.0-5.5 #) [place] 357782-03-25 06:48:00 Test Item Value Reference Range Interpretation Comments Monocytes # (test code 0.7 See_Comment [Aut omated message] The = Monocytes #) system which generated this result tra nsmitted reference range : <=0.8. The reference r boubacar was not used to int erpret this result as normal/abnormal . [place] [address]-03-25 06:48:00 Test Item Value Reference Range Interpretation Comments Eosinophils # (test code 0.3 See_Comment [A utomated message] The = Eosinophils #) system whic h generated this result tra nsmitted reference range : <=0.5. The reference r boubacar was not used to int erpret this result as normal/abnormal . [facility] HospitalWeuijtlPUXMFQBDTK1236-11-99 06:48:00 Test Item Value Reference Range Interpretation Comments WBC X 10x3 (test code = WBC X 10x3) 11.9 3.7-10.4 [place] 357782-03-25 06:48:00 Test Item Value Reference Range Interpretation Comments RBC X 10x6 (test code = RBC X 10x6) 5.95 4.70-6.10 [place] 357782-03-25 06:48:00 Test Item Value Reference Range Interpretation Comments Hgb (test code = Hgb) 17.9 14.0-18.0 [place] [address]-03-25 06:48:00 Test Item Value Reference Range Interpretation Comments Hct (test code = Hct) 52.0 42.0-54.0 [place] [address]-03-25 06:48:00 Test Item Value Reference Range Interpretation Comments MCV (test code = MCV) 87.5 80.0-94.0 [place] [address]-03-25 06:48:00 Test Item Value Reference Range Interpretation Comments MCH (test code = MCH) 30.2 pg 27.0-31.0 [facility] HospitalEqqftpcMWVQUMZQDS2548-28-01 06:48:00 Test Item Value Reference Range Interpretation Comments MCHC (test code = MCHC) 34.5 32.0-36.0 [facility] HospitalTvkanagVKTRENANTQ7041-45-72 06:48:00 Test Item Value Reference Range Interpretation Comments RDW (test code = RDW) 15.4 11.5-14.5 [facility] HospitalIwywidqOAJZHCAFNL4656-30-78 06:48:00 Test Item Value Reference Range Interpretation Comments Platelet (test code = Platelet) 414 133-450 [facility]UhcgyppNPFNIYSAOO5758-62-40 06:48:00 Test Item Value Reference Range Interpretation Comments MPV (test code = MPV) 8.5 7.4-10.4 [facility] HospitalXrflgreYZZGJQHLDS8810-15-23 06:48:00 Test Item Value Reference Range Interpretation Comments PT (test code = PT) 12.9 s 12.0-14.7 [facility] HospitalWvhusclJPPPUSKLYC9362-57-81 06:48:00 Test Item Value Reference Range Interpretation Comments INR (test code = INR) 0.98 1 0.85-1.17 [facility] HospitalZkdarcfYSGCRNOKWB3151-58-24 06:48:00 Test Item Value Reference Range Interpretation Comments PTT (test code = PTT) 31.4 s 22.9-35.8 [facility] WITH FGVA1864-74-91 00:23:28 Test Item Value Reference Range Interpretation Comments WBC (test code = See_Comment H [Automated 2790-2) message] The sy stem which generated this [...] RDW-SD (test code = 47.6 fL 38.5-51.6 45649-8) RDW-CV (test code = 15.1 % 12.1-15.4 788-0) PLT (test code = See_Comment H [Automated 777-3) message] The sy stem which generated this result transmitted reference range : 150 - 328 10*3/ ?L. The reference r boubacar was not used to interpret this result as normal/abnormal . MPV (test code = 10.5 fL 9.8-13.0 40931-0) NRBC/100 WBC (test See_Comment [Automat ed code = [id number]) message] The system which generated this result transmitted reference range : 0.0 - 10.0 /100 WBCs. The refer ence range was not u sed to interpret th is result as normal/abnormal . NRBC x10^3 (test code <0.01 See_Comment [Auto mated = [id number]) message] The s ystem which generated this result transmitted reference range : 10*3/?L. The reference range was not used to interpret this result as normal/abnormal . GRAN MAT (NEUT) % 66.7 % (test code = 770-8) IMM GRAN % (test code 0.40 % = [id number]) LYMPH % (test code = 24.4 % 736-9) MONO % (test code = 6.6 % 5905-5) EOS % (test code = 1.5 % 713-8) BASO % (test code = 0.4 % 706-2) GRAN MAT x10^3(ANC) 7.43 10*3/uL 1.99-6.95 H (test code = 7165729425) IMM GRAN x10^3 (test 0.04 10*3/uL 0.00-0.06 code = 3482493649) LYMPH x10^3 (test code 2.72 10*3/uL 1.09-3.23 = 731-0) MONO x10^3 (test code 0.74 10*3/uL 0.36-1.02 = 742-7) EOS x10^3 (test code = 0.17 10*3/uL 0.06-0.53 711-2) BASO x10^3 (test code 0.04 10*3/uL 0.01-0.09 = 704-7) Lab Interpretation Abnormal (test code = 43491-6) [facility] METABOLIC PANEL ([id number])2021-09-29 00:18:07 Test Item Value Reference Range Interpretation Comments NA (test code = 139 mmol/L 135-145 9247905036) K (test code = 4.8 mmol/L 3.5-5.0 4395582338) CL (test code = 104 mmol/L 98-108 5716283809) CO2 TOTAL (test code = 22 mmol/L 23-31 L 9170954495) AGAP (test code = 2-16 1765882001) BUN (test code = 15 mg/dL 7-23 0211424807) GLUCOSE (test code = 93 mg/dL 70-110 0552688710) CREATININE (test code = 0.67 mg/dL 0.60-1.25 4725395173) TOTAL BILI (test code = 0.7 mg/dL 0.1-1.7 4206947794) CALCIUM (test code = 9.8 mg/dL 8.6-10.6 3425332360) T PROTEIN (test code = 8.9 g/dL 6.3-8.2 H 8621588125) ALBUMIN (test code = 4.9 g/dL 3.5-5.0 5571720239) ALK PHOS (test code = 126 U/L 34-122 H 1550645006) ALTv (test code = 43 U/L 5-50 1742-6) AST(SGOT) (test code = 28 U/L 13-40 7611210120) eGFR (test code = mL/min/1.73m2 9964333202) ARPITA (test code = ARPITA) Association of [...] tests). Lab Interpretation Abnormal (test code = 97548-7) [facility] METABOLIC PANEL ([id number])2021-08-06 12:48:40 Test Item Value Reference Range Interpretation Comments NA (test code = 137 mmol/L 135-145 5328951846) K (test code = 4.5 mmol/L 3.5-5.0 5026730810) CL (test code = 107 mmol/L 98-108 4576905680) CO2 TOTAL (test code = 24 mmol/L 23-31 5580125232) AGAP (test code = 2-16 7401034666) BUN (test code = 16 mg/dL 7-23 6600325671) GLUCOSE (test code = 116 mg/dL 70-110 H 3474445170) CREATININE (test code = 0.62 mg/dL 0.60-1.25 3254649257) TOTAL BILI (test code = 0.4 mg/dL 0.1-1.9 9512371562) CALCIUM (test code = 8.7 mg/dL 8.6-10.6 5346366286) T PROTEIN (test code = 7.5 g/dL 6.3-8.2 4434672511) ALBUMIN (test code = 3.9 g/dL 3.5-5.0 4790529405) ALK PHOS (test code = 93 U/L 34-122 2240986349) ALTv (test code = 40 U/L 5-50 1742-6) AST(SGOT) (test code = 51 U/L 13-40 H 2418602933) eGFR (test code = mL/min/1.73m2 6244234505) ARPITA (test code = ARPITA) Association of [...] tests). Lab Interpretation Abnormal (test code = 40332-2) [facility] WITH [id number] 12:21:36 Test Item Value Reference Range Interpretation [...] RDW-SD (test code = 50.6 fL 38.5-51.6 41143-0) RDW-CV (test code = 15.3 % 12.1-15.4 788-0) PLT (test code = See_Comment H [Automated 777-3) message] The sy stem which generated this result transmitted reference range : 150 - 328 10*3/ ?L. The reference r boubacar was not used to interpret this result as normal/abnormal . MPV (test code = 10.3 fL 9.8-13.0 24675-9) NRBC/100 WBC (test See_Comment [Automat ed code = 7079630978) message] The system which generated this result transmitted reference range : 0.0 - 10.0 /100 WBCs. The refer ence range was not u sed to interpret th is result as normal/abnormal . NRBC x10^3 (test code <0.01 See_Comment [Auto mated = 2474591217) message] The s ystem which generated this result transmitted reference range : 10*3/?L. The reference range was not used to interpret this result as normal/abnormal . GRAN MAT (NEUT) % 61.5 % (test code = 770-8) IMM GRAN % (test code 0.80 % = 0988890205) LYMPH % (test code = 27.8 % 736-9) MONO % (test code = 6.9 % 5905-5) EOS % (test code = 2.4 % 713-8) BASO % (test code = 0.6 % 706-2) GRAN MAT x10^3(ANC) 6.07 10*3/uL 1.99-6.95 (test code = 1010204706) IMM GRAN x10^3 (test 0.08 10*3/uL 0.00-0.06 H code = 2992738301) LYMPH x10^3 (test code 2.75 10*3/uL 1.09-3.23 = 731-0) MONO x10^3 (test code 0.68 10*3/uL 0.36-1.02 = 742-7) EOS x10^3 (test code = 0.24 10*3/uL 0.06-0.53 711-2) BASO x10^3 (test code 0.06 10*3/uL 0.01-0.09 = 704-7) Lab Interpretation Abnormal (test code = 65032-7) [facility] Metabolic Panel (NA, K, CL, CO2, GLUCOSE, BUN, CREATININE, CA)2021-08-04 12:40:30 Test Item Value Reference Range Interpretation Comments NA (test code = 139 mmol/L 135-145 9904750132) K (test code = 3.9 mmol/L 3.5-5.0 1666322479) CL (test code = 108 mmol/L 98-108 2761221908) CO2 TOTAL (test code = 25 mmol/L 23-31 0872503691) AGAP (test code = 2-16 6918323227) BUN (test code = 14 mg/dL 7-23 7563232156) GLUCOSE (test code = 107 mg/dL 70-110 3574801832) CREATININE (test code = 0.61 mg/dL 0.60-1.25 8473863065) CALCIUM (test code = 8.1 mg/dL 8.6-10.6 L 6864687092) eGFR (test code = mL/min/1.73m2 2315968671) ARPITA (test code = ARPITA) Association of [...] tests). Lab Interpretation Abnormal (test code = 11713-6) [facility] acute hospital with [id number] 12:23:51 Test Item Value Reference Range Interpretation Comments WBC (test code = See_Comment [Automated 7393-2) message] The sy stem which generated this result transmitted reference range : 4.20 - 10.70 10*3/?L. The reference range was not used to interpret this result as normal/abnormal . RBC (test code = See_Comment [Automated 802-8) message] The sy stem which generated this [...] RDW-SD (test code = 49.3 fL 38.5-51.6 90078-9) RDW-CV (test code = 15.3 % 12.1-15.4 788-0) PLT (test code = See_Comment H [Automated 777-3) message] The sy stem which generated this result transmitted reference range : 150 - 328 10*3/ ?L. The reference r boubacar was not used to interpret this result as normal/abnormal . MPV (test code = 10.2 fL 9.8-13.0 38187-8) NRBC/100 WBC (test See_Comment [Automat ed code = 2804156898) message] The system which generated this result transmitted reference range : 0.0 - 10.0 /100 WBCs. The refer ence range was not u sed to interpret th is result as normal/abnormal . NRBC x10^3 (test code <0.01 See_Comment [Auto mated = 3865114681) message] The s ystem which generated this result transmitted reference range : 10*3/?L. The reference range was not used to interpret this result as normal/abnormal . GRAN MAT (NEUT) % 56.7 % (test code = 770-8) IMM GRAN % (test code 0.60 % = 3792270666) LYMPH % (test code = 31.1 % 736-9) MONO % (test code = 8.7 % 5905-5) EOS % (test code = 2.4 % 713-8) BASO % (test code = 0.5 % 706-2) GRAN MAT x10^3(ANC) 4.83 10*3/uL 1.99-6.95 (test code = 2887107156) IMM GRAN x10^3 (test 0.05 10*3/uL 0.00-0.06 code = 5562534742) LYMPH x10^3 (test code 2.64 10*3/uL 1.09-3.23 = 731-0) MONO x10^3 (test code 0.74 10*3/uL 0.36-1.02 = 742-7) EOS x10^3 (test code = 0.20 10*3/uL 0.06-0.53 711-2) BASO x10^3 (test code 0.04 10*3/uL 0.01-0.09 = 704-7) Lab Interpretation Abnormal (test code = 36339-4) [facility] METABOLIC PANEL ([id number])2021-08-03 06:32:14 Test Item Value Reference Range Interpretation Comments NA (test code = 139 mmol/L 135-145 3637653661) K (test code = 4.5 mmol/L 3.5-5.0 5444333414) CL (test code = 102 mmol/L 98-108 4949671002) CO2 TOTAL (test code = 26 mmol/L 23-31 8477308256) AGAP (test code = 2-16 1548237103) BUN (test code = 16 mg/dL 7-23 8055766252) GLUCOSE (test code = 99 mg/dL 70-110 5956544954) CREATININE (test code = 0.83 mg/dL 0.60-1.25 0528416123) TOTAL BILI (test code = 0.6 mg/dL 0.1-1.3 5817613498) CALCIUM (test code = 9.5 mg/dL 8.6-10.6 4648482581) T PROTEIN (test code = 8.6 g/dL 6.3-8.2 H 0095380827) ALBUMIN (test code = 4.6 g/dL 3.5-5.0 6273310139) ALK PHOS (test code = 121 U/L 34-122 2838726279) ALTv (test code = 58 U/L 5-50 H 1742-6) AST(SGOT) (test code = 32 U/L 13-40 0162491985) eGFR (test code = mL/min/1.73m2 9664716484) ARPITA (test code = ARPITA) Association of [...] tests). Lab Interpretation Abnormal (test code = 77357-9) [facility] acute hospital WITH [id number] 05:48:31 Test Item Value Reference Range Interpretation Comments WBC (test code = See_Comment H [Automated 4090-2) message] The sy stem which generated this result transmitted reference range : 4.20 - 10.70 10*3/?L. The reference range was not used to interpret this result as normal/abnormal . RBC (test code = See_Comment H [Automated 619-8) message] The sy stem which generated this [...] RDW-SD (test code = 49.1 fL 38.5-51.6 33370-1) RDW-CV (test code = 15.5 % 12.1-15.4 H 788-0) PLT (test code = See_Comment H [Automated 777-3) message] The sy stem which generated this result transmitted reference range : 150 - 328 10*3/ ?L. The reference r boubacar was not used to interpret this result as normal/abnormal . MPV (test code = 10.4 fL 9.8-13.0 59108-0) NRBC/100 WBC (test See_Comment [Automat ed code = 8212288974) message] The system which generated this result transmitted reference range : 0.0 - 10.0 /100 WBCs. The refer ence range was not u sed to interpret th is result as normal/abnormal . NRBC x10^3 (test code <0.01 See_Comment [Auto mated = 4797294843) message] The s ystem which generated this result transmitted reference range : 10*3/?L. The reference range was not used to interpret this result as normal/abnormal . GRAN MAT (NEUT) % 64.8 % (test code = 770-8) IMM GRAN % (test code 0.70 % = 3332688612) LYMPH % (test code = 25.2 % 736-9) MONO % (test code = 6.9 % 5905-5) EOS % (test code = 1.9 % 713-8) BASO % (test code = 0.5 % 706-2) GRAN MAT x10^3(ANC) 7.80 10*3/uL 1.99-6.95 H (test code = 2559272674) IMM GRAN x10^3 (test 0.08 10*3/uL 0.00-0.06 H code = 4505965159) LYMPH x10^3 (test code 3.04 10*3/uL 1.09-3.23 = 731-0) MONO x10^3 (test code 0.83 10*3/uL 0.36-1.02 = 742-7) EOS x10^3 (test code = 0.23 10*3/uL 0.06-0.53 711-2) BASO x10^3 (test code 0.06 10*3/uL 0.01-0.09 = 704-7) Lab Interpretation Abnormal (test code = 84332-0) [facility]. METABOLIC PANEL ([id number])2021-08-01 02:19:08 Test Item Value Reference Range Interpretation Comments NA (test code = 136 mmol/L 135-145 0179266541) K (test code = 4.4 mmol/L 3.5-5.0 1336287799) CL (test code = 99 mmol/L 98-108 3097758288) CO2 TOTAL (test code = 25 mmol/L 23-31 8629230448) AGAP (test code = 2-16 6760797403) BUN (test code = 19 mg/dL 7-23 2765319615) GLUCOSE (test code = 103 mg/dL 70-110 6598612814) CREATININE (test code = 0.70 mg/dL 0.60-1.25 7413271464) TOTAL BILI (test code = 0.7 mg/dL 0.1-1.0 9997329355) CALCIUM (test code = 9.2 mg/dL 8.6-10.6 9601966629) T PROTEIN (test code = 9.4 g/dL 6.3-8.2 H 9664714529) ALBUMIN (test code = 4.8 g/dL 3.5-5.0 9388010708) ALK PHOS (test code = 146 U/L 34-122 H 3745458145) ALTv (test code = 75 U/L 5-50 H 1742-6) AST(SGOT) (test code = 37 U/L 13-40 1593642873) eGFR (test code = mL/min/1.73m2 9514244632) ARPITA (test code = ARPITA) Association of [...] tests). Lab Interpretation Abnormal (test code = 48917-9) [facility] Test Item Value Reference Range Interpretation Comments LIPASE (test code = 8350458685) 86 U/L 0-220 Lab Interpretation (test code = Normal 80238-2) [facility] acute hospital WITH [id number] 01:55:49 Test Item Value Reference Range Interpretation Comments WBC (test code = See_Comment H [Automated 4690-2) message] The sy stem which generated this result transmitted reference range : 4.20 - 10.70 10*3/?L. The reference range was not used to interpret this result as normal/abnormal . RBC (test code = See_Comment H [Automated 139-8) message] The sy stem which generated this [...] RDW-SD (test code = 48.7 fL 38.5-51.6 59676-2) RDW-CV (test code = 15.4 % 12.1-15.4 788-0) PLT (test code = See_Comment H [Automated 777-3) message] The sy stem which generated this result transmitted reference range : 150 - 328 10*3/ ?L. The reference r boubacar was not used to interpret this result as normal/abnormal . MPV (test code = 9.9 fL 9.8-13.0 45346-8) NRBC/100 WBC (test See_Comment [Automat ed code = 7273121829) message] The system which generated this result transmitted reference range : 0.0 - 10.0 /100 WBCs. The refer ence range was not u sed to interpret th is result as normal/abnormal . NRBC x10^3 (test code <0.01 See_Comment [Auto mated = 0026486357) message] The s ystem which generated this result transmitted reference range : 10*3/?L. The reference range was not used to interpret this result as normal/abnormal . GRAN MAT (NEUT) % 69.8 % (test code = 770-8) IMM GRAN % (test code 0.50 % = 8659357988) LYMPH % (test code = 20.5 % 736-9) MONO % (test code = 6.8 % 5905-5) EOS % (test code = 1.9 % 713-8) BASO % (test code = 0.5 % 706-2) GRAN MAT x10^3(ANC) 7.72 10*3/uL 1.99-6.95 H (test code = 9305945673) IMM GRAN x10^3 (test 0.05 10*3/uL 0.00-0.06 code = 0301572701) LYMPH x10^3 (test code 2.26 10*3/uL 1.09-3.23 = 731-0) MONO x10^3 (test code 0.75 10*3/uL 0.36-1.02 = 742-7) EOS x10^3 (test code = 0.21 10*3/uL 0.06-0.53 711-2) BASO x10^3 (test code 0.06 10*3/uL 0.01-0.09 = 704-7) Lab Interpretation Abnormal (test code = 61476-1) [id number]:33:52 Test Item Value Reference Interpretation Comments Range D-DIMER (test code = See_Comment [Autom ated 2340406982) message] The system which generated this result [...] diagnosis. Lab Interpretation Normal (test code = 87693-5) [facility] ([id number])2021-07-29 22:42:48 Test Item Value Reference Range Interpretation Comments NA (test code = 135 mmol/L 135-145 0471195226) K (test code = 4.6 mmol/L 3.5-5.0 2418692821) CL (test code = 102 mmol/L 98-108 0335999371) CO2 TOTAL (test code = 24 mmol/L 23-31 2515686555) AGAP (test code = 2-16 8672635661) BUN (test code = 17 mg/dL 7-23 9571221261) GLUCOSE (test code = 107 mg/dL 70-110 4905718596) CREATININE (test code = 0.60 mg/dL 0.60-1.25 8378985512) TOTAL BILI (test code = 1.0 mg/dL 0.1-1.4 9362061214) CALCIUM (test code = 9.4 mg/dL 8.6-10.6 8229096705) T PROTEIN (test code = 8.6 g/dL 6.3-8.2 H 2208879920) ALBUMIN (test code = 4.6 g/dL 3.5-5.0 3441804111) ALK PHOS (test code = 159 U/L 34-122 H 3668714426) ALTv (test code = 77 U/L 5-50 H 1742-6) AST(SGOT) (test code = 38 U/L 13-40 4014928969) eGFR (test code = mL/min/1.73m2 8501355262) ARPITA (test code = ARPITA) Association of [...] tests). Lab Interpretation Abnormal (test code = 19572-4) [facility] acute hospital WITH [id number] 22:30:27 Test Item Value Reference Range Interpretation [...] RDW-SD (test code = 48.0 fL 38.5-51.6 85160-3) RDW-CV (test code = 15.1 % 12.1-15.4 788-0) PLT (test code = See_Comment H [Automated 777-3) message] The system which generated this result transmit lester reference range : 150 - 328 10*3/ ?L. The reference range was not u sed to interpret th is result as normal/abnormal . MPV (test code = 10.3 fL 9.8-13.0 36640-9) NRBC/100 WBC (test See_Comment [Automat ed code = 4765677091) message] The system which generated this result transmit lester reference range : 0.0 - 10.0 /100 WBCs. The reference range was not used to interpret this result as normal/abnormal . NRBC x10^3 (test code <0.01 See_Comment [Auto mated = 6231428607) message] The system which generated this result transmit lester reference range : 10*3/?L. The reference range was not used to interpret this result as normal/abnormal . GRAN MAT (NEUT) % 79.9 % (test code = 770-8) IMM GRAN % (test code 0.50 % = 4073030144) LYMPH % (test code = 11.8 % 736-9) MONO % (test code = 6.6 % 5905-5) EOS % (test code = 0.9 % 713-8) BASO % (test code = 0.3 % 706-2) GRAN MAT x10^3(ANC) 10.70 10*3/uL 1.99-6.95 H (test code = 9047286009) IMM GRAN x10^3 (test 0.07 10*3/uL 0.00-0.06 H code = 7286199369) LYMPH x10^3 (test code 1.58 10*3/uL 1.09-3.23 = 731-0) MONO x10^3 (test code 0.89 10*3/uL 0.36-1.02 = 742-7) EOS x10^3 (test code = 0.12 10*3/uL 0.06-0.53 711-2) BASO x10^3 (test code 0.04 10*3/uL 0.01-0.09 = 704-7) Lab Interpretation Abnormal (test code = 31076-9) [facility] METABOLIC PANEL ([id number])2021-06-07 23:02:15 Test Item Value Reference Range Interpretation Comments NA (test code = 137 mmol/L 135-145 6948995406) K (test code = 4.5 mmol/L 3.5-5.0 5756695109) CL (test code = 109 mmol/L 98-108 H 7655340721) CO2 TOTAL (test code = 22 mmol/L 23-31 L 3865356436) AGAP (test code = 2-16 9575753363) BUN (test code = 7 mg/dL 7-23 7326122799) GLUCOSE (test code = 87 mg/dL 70-110 4323477279) CREATININE (test code = 0.61 mg/dL 0.60-1.25 9132377936) TOTAL BILI (test code = 0.5 mg/dL 0.1-1.4 1053353890) CALCIUM (test code = 9.0 mg/dL 8.6-10.6 6038450239) T PROTEIN (test code = 6.9 g/dL 6.3-8.2 8441165093) ALBUMIN (test code = 3.5 g/dL 3.5-5.0 3636109188) ALK PHOS (test code = 112 U/L 34-122 4216419798) ALTv (test code = 35 U/L 5-50 1742-6) AST(SGOT) (test code = 21 U/L 13-40 3321322022) eGFR (test code = mL/min/1.73m2 3843742881) ARPITA (test code = ARPITA) Association of [...] tests). Lab Interpretation Abnormal (test code = 44186-5) [facility] acute hospital WITH [id number] 22:51:57 Test Item Value Reference Range Interpretation [...] RDW-SD (test code = 42.4 fL 38.5-51.6 70684-2) RDW-CV (test code = 13.6 % 12.1-15.4 788-0) PLT (test code = See_Comment H [Automated 777-3) message] The sy stem which generated this result transmitted reference range : 150 - 328 10*3/ ?L. The reference r boubacar was not used to interpret this result as normal/abnormal . MPV (test code = 9.4 fL 9.8-13.0 L 86868-5) NRBC/100 WBC (test See_Comment [Automat ed code = 7135755715) message] The system which generated this result transmitted reference range : 0.0 - 10.0 /100 WBCs. The refer ence range was not u sed to interpret th is result as normal/abnormal . NRBC x10^3 (test code <0.01 See_Comment [Auto mated = 3632430450) message] The s ystem which generated this result transmitted reference range : 10*3/?L. The reference range was not used to interpret this result as normal/abnormal . GRAN MAT (NEUT) % 76.4 % (test code = 770-8) IMM GRAN % (test code 0.40 % = 2520526578) LYMPH % (test code = 16.3 % 736-9) MONO % (test code = 5.6 % 5905-5) EOS % (test code = 1.0 % 713-8) BASO % (test code = 0.3 % 706-2) GRAN MAT x10^3(ANC) 8.81 10*3/uL 1.99-6.95 H (test code = 6360462617) IMM GRAN x10^3 (test 0.05 10*3/uL 0.00-0.06 code = 8492964039) LYMPH x10^3 (test code 1.88 10*3/uL 1.09-3.23 = 731-0) MONO x10^3 (test code 0.64 10*3/uL 0.36-1.02 = 742-7) EOS x10^3 (test code = 0.12 10*3/uL 0.06-0.53 711-2) BASO x10^3 (test code 0.03 10*3/uL 0.01-0.09 = 704-7) Lab Interpretation Abnormal (test code = 22837-3) [facility]2020-11-21 01:01:33 Test Item Value Reference Range Interpretation Comments SARS-CoV-2 Rapid ID NOW Not Detected Not Detected (test code = 53152-8) ARPITA (test code = ARPITA) ID NOW COVID-19 Assay is an isothermal nucleic acid amplification test intended for the qualitative detection of nucleic acid from SARS-CoV-2 viral RNA in nasopharyngeal (BULK COOLER INSTALLER) specimens. It is used under Emergency Use [...] indicated. Lab Interpretation Normal (test code = 81245-6) [facility] (65706)2020-11-21 01:00:33 Test Item Value Reference Range Interpretation Comments NA (test code = 140 mmol/L 135-145 5076707136) K (test code = 4.4 mmol/L 3.5-5.0 7657909139) CL (test code = 103 mmol/L 98-108 3598416151) CO2 TOTAL (test code = 28 mmol/L 23-31 0711034222) AGAP (test code = 2-16 4254360392) BUN (test code = 15 mg/dL 7-23 8169569484) GLUCOSE (test code = 85 mg/dL 70-110 1363270046) CREATININE (test code = 0.60 mg/dL 0.60-1.25 5249065666) TOTAL BILI (test code = 1.1 mg/dL 0.1-1.5 3569798102) CALCIUM (test code = 9.0 mg/dL 8.6-10.6 9589464098) T PROTEIN (test code = 7.8 g/dL 6.3-8.2 3329169341) ALBUMIN (test code = 4.0 g/dL 3.5-5.0 3661080725) ALK PHOS (test code = 166 U/L 34-122 H 6137628313) ALTv (test code = 42 U/L 5-50 1742-6) AST(SGOT) (test code = 32 U/L 13-40 9849477714) eGFR (test code = mL/min/1.73m2 6686580039) ARPITA (test code = ARPITA) Association of [...] tests). Lab Interpretation Abnormal (test code = 27581-6) [facility]13 Test Item Value Reference Range Interpretation Comments LIPASE (test code = 6034594731) 57 U/L 0-220 Lab Interpretation (test code = Normal 72216-3) [facility]55 Test Item Value Reference Range Interpretation Comments APPEARANCE (test code = Turbid Clear A 9147688956) COLOR (test code = Yellow Yellow 9305407866) PH (test code = 4.8-8.0 5800596409) SP GRAVITY (test code = 1.003-1.030 8837399330) GLU U QUAL (test code = Normal Normal 7256113721) BLOOD (test code = 1+ Negative A 7534503091) KETONES (test code = 20 mg/dL Negative A 4463593363) PROTEIN (test code = 100 mg/dL Negative A 2887-8) UROBILIN (test code = 2.0 mg/dL Normal A 1419872034) BILIRUBIN (test code = Negative Negative 6102724652) NITRITE (test code = Positive Negative A 1226456910) LEUK CHAD (test code = 250/uL Negative A 7465315935) RBC/HPF (test code = See_Comment H [Autom ated message] 1438383470) The system [employer] generated this result transmit lester reference range : 0 - 3 HPF. The refe rence range was not u sed to interpret th is result as normal/abnormal . WBC/HPF (test code = >182 See_Comment H [Autom ated message] 2580961540) The system [employer] generated this result transmit lester reference range : 0 - 5 HPF. The refe rence range was not u sed to interpret th is result as normal/abnormal . BACTERIA (test code = Many Negative A 9716726291) MUCOUS (test code = Moderate Negative LPF A 1402184085) WBC CLUMPS (test code = See_Comment H [Au tomated message] 0809588438) The system [employer] generated this result transmit lester reference range : <=1 HPF. The refere nce range was not u sed to interpret th is result as normal/abnormal . Lab Interpretation (test Abnormal code = 16082-1) [facility] acute hospital WITH [id number] 00:46:14 Test Item Value Reference Range Interpretation Comments WBC (test code = See_Comment [Automated 4790-2) message] The sy stem which generated this result transmitted reference range : 4.20 - 10.70 10*3/?L. The reference range was not used to interpret this result as normal/abnormal . RBC (test code = See_Comment [Automated 839-8) message] The sy stem which [...] RDW-SD (test code = 47.6 fL 38.5-51.6 26115-7) RDW-CV (test code = 15.2 % 12.1-15.4 788-0) PLT (test code = See_Comment H [Automated 777-3) message] The sy stem which generated this result transmitted reference range : 150 - 328 10*3/ ?L. The reference r boubacar was not used to interpret this result as normal/abnormal . MPV (test code = 9.4 fL 9.8-13.0 L 28251-7) NRBC/100 WBC (test See_Comment [Automat ed code = [id number]) message] The system which generated this result transmitted reference range : 0.0 - 10.0 /100 WBCs. The refer ence range was not u sed to interpret th is result as normal/abnormal . NRBC x10^3 (test code <0.01 See_Comment [Auto mated = [id number]) message] The s ystem which generated this result transmitted reference range : 10*3/?L. The reference range was not used to interpret this result as normal/abnormal . GRAN MAT (NEUT) % 61.3 % (test code = 770-8) IMM GRAN % (test code 0.70 % = [id number]) LYMPH % (test code = 26.4 % 736-9) MONO % (test code = 9.9 % 5905-5) EOS % (test code = 1.3 % 713-8) BASO % (test code = 0.4 % 706-2) GRAN MAT x10^3(ANC) 6.39 10*3/uL 1.99-6.95 (test code = [id number]) IMM GRAN x10^3 (test 0.07 10*3/uL 0.00-0.06 H code = [id number]) LYMPH x10^3 (test code 2.75 10*3/uL 1.09-3.23 = 731-0) MONO x10^3 (test code 1.03 10*3/uL 0.36-1.02 H = 742-7) EOS x10^3 (test code = 0.14 10*3/uL 0.06-0.53 711-2) BASO x10^3 (test code 0.04 10*3/uL 0.01-0.09 = 704-7) Lab Interpretation Abnormal (test code = 13835-1) [id number] 13:03:00 Test Item Value Reference Range Interpretation Comments POC-GLUCOSE METER 140 mg/dL 70-110 H : TESTED A T [facility] [address] (BEAKER) (test code = [place], 1538) [address]: [employer] Matcher/Techni rose ID = [id number] for AARON COTTRELL POCT-GLUCOSE [id number] 09:15:00 Test Item Value Reference Range Interpretation Comments POC-GLUCOSE METER 142 mg/dL 70-110 H : TESTED A T [facility] [address] (BEAKER) (test code = [facility], [facility]8) [address]: [employer] Head Matcher/Techni rose ID = [id number] for AARON COTTRELL POCT-GLUCOSE [id number] 20:56:00 Test Item Value Reference Range Interpretation Comments POC-GLUCOSE METER 134 mg/dL 70-110 H : TESTED A T [facility] [address] (BEAKER) (test code = [facility] [facility] [address]: Hogshead Head Matcher/Techni rose ID = [id number] for MG LANZA POCT-GLUCOSE [id number] 16:46:00 Test Item Value Reference Range Interpretation Comments POC-GLUCOSE METER 91 mg/dL 70-110 : TESTED A T [facility] 6720 (BEAKER) (test code = [facility], [facility]8) 78506: Hogshead Head Matcher/Techni rose ID = [id number] for AARON CABRAL POCT-GLUCOSE [id number] 12:19:00 Test Item Value Reference Range Interpretation Comments POC-GLUCOSE METER 237 mg/dL 70-110 H : TESTED A T [facility] 6720 (BEAKER) (test code = [facility], [facility]) [address]: Hogshead Head Matcher/Techni rose ID = [id number] for AARON COTTRELL MR, EXTREMITY, LOWER, WITHOUT CONTRAST, [id number] 09:12:00FINAL REPORT MRI of the right and [...] Garza Verified Date/Time: 07/29/2019 09:12:01 Reading Location: [address] Ortho Consult Reading Room MR, EXTREMITY, LOWER, WITHOUT CONTRAST, [id number] 09:12:00FINAL REPORT MRI of the right and [...] Garza Verified Date/Time: 07/29/2019 09:12:01 Reading Location: [facility] C013X Ortho Consult Reading Room POCT-GLUCOSE [id number] 08:47:00 Test Item Value Reference Range Interpretation Comments POC-GLUCOSE METER 264 mg/dL 70-110 H : TESTED A T [facility] 6720 (BEAKER) (test code = [facility], 153) [address]54: Hogshead Head Matcher/Techni rose ID = [id number] for VERO TRAYLORE AARON ISLET CELL AB [id number] 07:43:00 Test Item Value Reference Range Interpretation Comments ISLET CELL AB Refer to individual AUTOVERIFICATION (test Islet Cell Ab code = 2556) and/or Islet Cell Ab Titer results. POCT-GLUCOSE [id number] 21:27:00 Test Item Value Reference Range Interpretation Comments POC-GLUCOSE METER 130 mg/dL 70-110 H : TESTED A T [facility] 6720 (BEAKER) (test code = [facility], 153) 84989: Hogshead Head Matcher/Techni rose ID = [id number] for FERNIE APARICIO BLOOD [id number] 13:00:00 Test Item Value Reference Range Interpretation Comments CULTURE (BEAKER) (test No growth in 5 days code = 1095) BLOOD [id number] 13:00:00 Test Item Value Reference Range Interpretation Comments CULTURE (BEAKER) (test No growth in 5 days code = 1095) POCT-GLUCOSE [id number] 12:57:00 Test Item Value Reference Range Interpretation Comments POC-GLUCOSE METER 138 mg/dL 70-110 H : TESTED A T [facility] 6720 (BEAKER) (test code = [facility], 1538) 38614: Hogshead Head Matcher/Techni rose ID = [id number] for WI LLIS, JUAN ANTONIO POCT-GLUCOSE [id number] 08:43:00 Test Item Value Reference Range Interpretation Comments POC-GLUCOSE METER 226 mg/dL 70-110 H : TESTED A T [facility] 6720 ([facility]) (test code = [facility], 153) 06811: Hogshead Head Matcher/Techni rose ID = [id number] for WI LLIS, JUAN ANTONIO POCT-GLUCOSE [id number] 21:11:00 Test Item Value Reference Range Interpretation Comments POC-GLUCOSE METER 254 mg/dL 70-110 H : Notified RN/MD: ([facility]) (test code = TESTED AT [facility] 6720 1538) [facility], [address]: Hogshead Head Matcher/Techni rose ID = [id number] for FERNIE APARICIO POCT-GLUCOSE [id number] 21:02:00 Test Item Value Reference Range Interpretation Comments POC-GLUCOSE METER 177 mg/dL 70-110 H : [facility]) (test code = [facility], 153) 16722: Hogshead Head Matcher/Techni rose ID = [id number] for WI LLIS, JUAN ANTONIO POCT-GLUCOSE [id number] 12:31:00 Test Item Value Reference Range Interpretation Comments POC-GLUCOSE METER 215 mg/dL 70-110 H : [facility]) (test code = [facility], 153) 15901: Hogshead Head Matcher/Techni rose ID = [id number] for WI LLIS, JUAN ANTONIO WOUND CULTURE + GRAM [id number] 10:10:00 Test Item Value Reference Interpretation Comments Range CULTURE ([facility]) PROTEUS MIRABILIS A 1+ Pro [...] gram negative (BEAKER) (test code = rods 010681) GRAM STAIN RESULT 2+ gram positive (BEAKER) (test code = rods 605609) GRAM STAIN RESULT <1+ gram negative (BEAKER) (test code = coccobacilli 800213) GRAM STAIN RESULT 2+ gram positive (BEAKER) (test code = cocci in pairs 162046) POCT-GLUCOSE [id number] 08:52:00 Test Item Value Reference Range Interpretation Comments POC-GLUCOSE METER 209 mg/dL 70-110 H : TESTED A T [facility] 6720 (BEAKER) (test code = [facility], 153) 20986: Hogshead Head Matcher/Techni rose ID = [id number] for JER PORTERE POCT-GLUCOSE [id number] 21:26:00 Test Item Value Reference Range Interpretation Comments POC-GLUCOSE METER 255 mg/dL 70-110 H : TESTED A T [facility] 6720 (BEAKER) (test code = [facility], [facility]) 79621: Hogshead Head Matcher/Techni rose ID = [id number] for CR ISWELL, TIA POCT-GLUCOSE [id number] 17:34:00 Test Item Value Reference Range Interpretation Comments POC-GLUCOSE METER 227 mg/dL 70-110 H : TESTED A T [facility] 6720 (BEAKER) (test code = [facility], [facility]8) 22642: Hogshead Head Matcher/Techni rose ID = [id number] for CHAVEZ NNY, LETI POCT-GLUCOSE [id number] 11:28:00 Test Item Value Reference Range Interpretation Comments POC-GLUCOSE METER 282 mg/dL 70-110 H : TESTED A T [facility] 6720 (BEAKER) (test code = [facility], [facility]8) 95890: Hogshead Head Matcher/Techni rose ID = [id number] for CHAVEZ NNY, LETI POCT-GLUCOSE [id number] 08:19:00 Test Item Value Reference Range Interpretation Comments POC-GLUCOSE METER 329 mg/dL 70-110 H : TESTED A T [facility] 6720 (BEAKER) (test code = [facility], [facility]) 85787: Hogshead Head Matcher/Techni rose ID = [id number] for AARON COTTRELL POCT-GLUCOSE [id number] 21:32:00 Test Item Value Reference Range Interpretation Comments POC-GLUCOSE METER 275 mg/dL 70-110 H : TESTED A T [facility] 6720 (BEAKER) (test code = [facility], [facility]8) 98532: Hogshead Head Matcher/Techni rose ID = [id number] for CR ISWELL, TIA POCT-GLUCOSE [id number] 17:47:00 Test Item Value Reference Range Interpretation Comments POC-GLUCOSE METER 304 mg/dL 70-110 H : TESTED A T [facility] 6720 (BEAKER) ([facility] = [facility], 1538) 42882: Hogshead Head Matcher/Techni rose ID = [id number] for ERIN ARIZMENDI URINE [id number] 15:21:00 Test Item Value Reference Range Interpretation [...] Tobramycin (test code R = 25) POCT-GLUCOSE [id number] 12:16:00 Test Item Value Reference Range Interpretation Comments POC-GLUCOSE METER 337 mg/dL 70-110 H : TESTED A T [facility] 6720 (BEAKER) (test code = LIZBETH Petit [facility], 1538) 6[address]26: Hogshead Head Matcher/Techni rose ID = [id number] for ERIN ARIZMENDI BASIC METABOLIC [id number] 10:39:00 Test Item Value Reference Range Interpretation [...] S NOT APPLICABLE FOR DIALYSIS PATIEN TS. Hogshead Head Matcher ID - JANET FPOCT-GLUCOSE [id number] 08:29:00 Test Item Value Reference Range Interpretation Comments POC-GLUCOSE METER 395 mg/dL 70-110 H : TESTED A T [facility] 6720 (BEAKER) (test code = [place], 1538) [address]: Hogshead Head Matcher/Techni rose ID = [id number] for ERIN ARIZMENDI CBC W/PLT COUNT & AUTO [id number] 06:40:00 Test Item Value Reference Range Interpretation [...] PERCENT (BEAKER) (test code = 2801) POCT-GLUCOSE [id number] 19:55:00 Test Item Value Reference Range Interpretation Comments POC-GLUCOSE METER 369 mg/dL 70-110 H : TESTED A T [facility] 6720 (BEAKER) (test code = [facility], 153) 74093: Hogshead Head Matcher/Techni rose ID = [id number] for CR MICK TIA POCT-GLUCOSE [id number] 16:45:00 Test Item Value Reference Range Interpretation Comments POC-GLUCOSE METER 272 mg/dL 70-110 H : TESTED A T [facility] 6720 (BEAKER) (test code = [facility], 153) 95789: Hogshead Head Matcher/Techni rose ID = [id number] for TH OMAS, FRIEDA POCT-GLUCOSE [id number] 11:40:00 Test Item Value Reference Range Interpretation Comments POC-GLUCOSE METER 277 mg/dL 70-110 H : TESTED A T [facility] 6720 (BEAKER) (test code = [facility], 153) 28612: Hogshead Head Matcher/Techni rose ID = [id number] for TH OMAS, FRIEDA BASIC METABOLIC [id number] 10:22:00 Test Item Value Reference Range Interpretation [...] GFR I S NOT APPLICABLE FOR DIALYSIS PATIFLORENTIN TS. Hogshead Head Matcher ID - NTPLIPID [id number] 10:17:00 Test Item Value Reference Range Interpretation [...] Borderline 130-159 High 160-189 Very High >=190 Hogshead Head Matcher ID - NTPPOCT-GLUCOSE METER 2019-07-24 08:28:00 Test Item Value Reference Range Interpretation Comments POC-GLUCOSE METER 388 mg/dL 70-110 H : TESTED Sharon Palacios [facility] 6720 (BEAKER) (test code = [place], 1538) [address]: Hogshead Head Matcher/Techni rose ID = [id number] for VERO ANDRE AARON HEMOGLOBIN [id number] 07:54:00 Test Item Value Reference Range Interpretation Comments HEMOGLOBIN A1C (BEAKER) (test code = 10.4 % 4.3-6.1 H 368) CBC W/PLT COUNT & AUTO [id number] 05:56:00 Test Item Value Reference Range Interpretation [...] EOSINOPHILS ABSOLUTE COUNT 0.15 K/ L 0.04-0.54 ([facility]) (test code = 416) BASOPHILS ABSOLUTE COUNT ([facility]) 0.03 K/ L 0.01-0.08 (test code = 417) IMMATURE GRANULOCYTES-RELATIVE 1 % 0-1 PERCENT ([facility]) (test code = 2801) POCT-GLUCOSE [id number] 23:47:00 Test Item Value Reference Range Interpretation Comments POC-GLUCOSE METER 359 mg/dL 70-110 H : Notified RN/MD: ([facility]) (test code = TESTED AT [place] [address] 1538) [facility], [address]: Hogshead Head Matcher/Techni rose ID = [id number] for LATHBRIDGE, MICHELINE ICE POCT-GLUCOSE [id number] 21:13:00 Test Item Value Reference Range Interpretation Comments POC-GLUCOSE METER 315 mg/dL 70-110 H : [facility] ([facility]) (test code = [facility], 153) 60205: Hogshead Head Matcher/Techni rose ID = [id number] for Sm ith, Ana POCT-GLUCOSE [id number] 21:13:00 Test Item Value Reference Range Interpretation Comments POC-GLUCOSE METER 331 mg/dL 70-110 H : [facility] ([facility]) (test code = [facility], 153) 15066: Hogshead Head Matcher/Techni rose ID = [id number] for RO SARAHI, LINDSAYECA POCT-GLUCOSE [id number] 10:30:00 Test Item Value Reference Range Interpretation Comments POC-GLUCOSE METER 341 mg/dL 70-110 H : [facility] ([facility]) (test code = [facility], 153) [address]8477: Hogshead Head Matcher/Techni rose ID = [id number] for Sm ith, Ana CBC W/PLT COUNT & AUTO [id number] 08:48:00 Test Item Value Reference Range Interpretation Comments WHITE BLOOD CELL COUNT ([facility]) 6.7 K/ L 3.5-10.5 (test code = 775) RED BLOOD CELL COUNT ([facility]) 5.28 M/ L 4.63-6.08 (test code = 761) HEMOGLOBIN ([facility]) (test code = 14.6 GM/DL [...] (BEAKER) (test code = Present 1371) HEMOGLOBIN [id number] 06:39:00 Test Item Value Reference Range Interpretation Comments HEMOGLOBIN A1C (BEAKER) (test code = 10.5 % 4.3-6.1 H 368) LIPID [id number] 04:57:00 Test Item Value Reference Range Interpretation [...] Optimal <100 Near Optimal 100-129 Borderline 130-159 [id number] Very High >=190 Specimen moderately lipemicBASIC METABOLIC [id number] 04:56:00 Test Item Value Reference Range Interpretation [...] NOT APPLICABLE FOR DIALYSIS PATIEN TS. POCT-GLUCOSE [id number] 21:53:00 Test Item Value Reference Range Interpretation Comments POC-GLUCOSE METER > mg/dL 70-110 HH : Notified RN/MD: TESTED (BEAKER) (test code = AT [facility] 6720 [facility] 1538) [facility], 770 30: Hogshead Head Matcher/Techni rose ID = [id number] for NEHEMIAS ISDESIRAE U/S, ABDOMINAL, [id number] 19:54:00Reason for exam:->Evaluation of ALTO SINGER shunt and for possible cyst or pseudocyst Should this be performed at the bedside?->YesFINAL REPORT Limited abdominal ultrasound. CLINICAL HISTORY: Evaluation of ALTO SINGER shunt for possible cyst or pseudocyst. COMPARISON STUDY: None available. FINDINGS: Sonographic assessment of the abdomen was performed assessing for fluid in the region of the patient's shunts. No fluid collections are seen. However, the study is limited by the patient's body habitus. CT scan would be more sensitive. Signed: Óscar Miles MDReport Verified Date/Time: 07/22/2019 19:54:10 Reading Location: [address] Consult Reading Room POCT-GLUCOSE [id number] 19:34:00 Test Item Value Reference Range Interpretation Comments POC-GLUCOSE METER 474 mg/dL 70-110 HH : Notified RN/MD: (BEAKER) (test code = TESTED AT [place] [address] 1531) [facility], [address]: Hogshead Head Matcher/Techni rose ID = [id number] for AK MARILYNN EPSTEIN URINALYSIS W/ REFLEX URINE [id number] 17:48:00 Test Item Value Reference Range Interpretation [...] = Moderate 517) SOURCE(BEAKER) (test code = 2651) CBC W/PLT COUNT & AUTO [id number] 17:38:00 Test Item Value Reference Range Interpretation [...] 3438) Received comment: User comments: Slide comments:POCT-GLUCOSE [id number] 16:27:00 Test Item Value Reference Range Interpretation Comments POC-GLUCOSE METER 424 mg/dL 70-110 HH : Notified RN/MD: (BEAKER) (test code = TESTED AT [facility] 0408 4223) [facility], [address]: Hogshead Head Matcher/Techni rose ID = [id number] for AK INSONU, MARILYNN CT, BRAIN, WITHOUT [id number] 15:31:00FINAL REPORT CT, BRAIN, WITHOUT CONTRAST CLINICAL [...] MDReport Verified Date/Time: 07/22/2019 15:31:08 Reading Location: [address] Neuro Reading Room RAD, SHUNT [id number] 15:13:00Reason for exam:->concern for VPS malfunctionFINAL REPORT [...] Plasencia Verified Date/Time: 07/22/2019 15:13:54 Reading Location: [facility] Radiology Reading Room POCT-GLUCOSE [id number] 11:38:00 Test Item Value Reference Range Interpretation Comments POC-GLUCOSE METER 394 mg/dL 70-110 H : TESTED A T [facility] 6720 ([facility]) (test [facility] = [facility], 1538) [address]: Hogshead Head Matcher/Techni rose ID = [id number] for MARILYNN MAO HEMOGLOBIN [id number] 09:15:00 Test Item Value Reference Range Interpretation Comments HEMOGLOBIN A1C (BEAKER) (test code = 10.4 % 4.3-6.1 H 368) TSH/FREE T4 IF [id number] 07:54:00 Test Item Value Reference Range Interpretation Comments THYROID STIMULATING HORMONE 1.40 uIU/mL 0.35-4.94 (BEAKER) (test code = 772) POCT-GLUCOSE [id number] 07:48:00 Test Item Value Reference Range Interpretation Comments POC-GLUCOSE METER > mg/dL 70-110 HH : Notified RN/MD: TESTED (BEAKER) (test code = AT [facility] 6720 [facility] 1538) [facility], 770 30: Hogshead Head Matcher/Techni rose ID = [id number] for MARILYNN SMITH BASIC METABOLIC [id number] 07:44:00 Test Item Value Reference Range Interpretation [...] NOT APPLICABLE FOR DIALYSIS PATIEN TS. LIPID [id number] 07:34:00 Test Item Value Reference Range Interpretation [...] Borderline 130-159 High 160-189 Very High >=190POCT-GLUCOSE [id number] 00:49:00 Test Item Value Reference Range Interpretation Comments POC-GLUCOSE METER 399 mg/dL 70-110 H : TESTED A T [facility] 6720 ([facility]) (test code = [place] Pet[place] [facility], 1538) [address]: Hogshead Head Matcher/Techni rose ID = [id number] for CHERYLE LINDA RAD, FOOT, 2 VIEWS, [id number] 22:28:00Reason for exam:->osteomyletitis FINAL REPORT TECHNIQUE: Two [...] MDReport Verified Date/Time: 07/21/2019 22:28:25 Reading Location: [facility] C013 Consult Reading Room RAD, FOOT, 2 VIEWS, [id number] 22:28:00Reason for exam:->osteomyletitsFINAL REPORT TECHNIQUE: Two views [...] MDReport Verified Date/Time: 07/21/2019 22:28:25 Reading Location: [facility] C013W Consult Reading Room Electronically signed by: ANDREW CARDENAS DO on07/21/2019 10:28 PMPOCT-GLUCOSE [id number] 21:04:00 Test Item Value Reference Range Interpretation Comments POC-GLUCOSE METER 430 mg/dL 70-110 HH : Notified RN/MD: (FELICIANO) (test code = TESTED AT [facility] 6720 1538) [facility], [address]: Hogshead Head Matcher/Techni rose ID = [id number] for ALBERTO OLIVER ERTAPENEM:SUSC:PT:ISOLATE:ORDQN:[id number] 16:48:00 Test Item Value Reference Range Interpretation Comments Culture: Urine (test >100,000 CFU/mL Proteus code = Culture: mirabilis 10,000 - Urine) 50,000 CFU/mL Skin Marilee [facility]:SUSC:PT:ISOLATE:ORDQN:[id number] 16:48:00 Test Item Value Reference Range Interpretation Comments Proteus mirabilis (test Proteus mirabilis code = Proteus mirabilis) [facility] AND [id number] 16:48:00 Test Item Value Reference Range Interpretation Comments UA Nitrite (test code Negative (05/22/18 10:48 = UA Nitrite) AM) [facility] AND [id number] 16:48:00 Test Item Value Reference Range Interpretation Comments UA Bili (test code = Negative *NA*(05/22/18 UA Bili) 10:48 AM) [facility] AND [id number] 16:48:00 Test Item Value Reference Range Interpretation Comments UA Ketones (test code Negative *NA*(05/22/18 = UA Ketones) 10:48 AM) [facility] AND [id number] 16:48:00 Test Item Value Reference Range Interpretation Comments UA Blood (test code = Trace *ABN*(05/22/18 UA Blood) 10:48 AM) [facility] AND [id number] 16:48:00 Test Item Value Reference Range Interpretation Comments UA Urobilinogen (test code = UA 0.2 0.1-1.0 Urobilinogen) [facility] AND [id number] 16:48:00 Test Item Value Reference Range Interpretation Comments UA Leuk Est (test code Large *ABN*(05/22/18 = UA Leuk Est) 10:48 AM) [facility] AND [id number] 16:48:00 Test Item Value Reference Range Interpretation Comments UA Protein (test code Negative (05/22/18 10:48 = UA Protein) AM) [facility] AND [id number] 16:48:00 Test Item Value Reference Range Interpretation Comments UA Glucose (test code Negative (05/22/18 10:48 = UA Glucose) AM) [facility] AND [id number] 16:48:00 Test Item Value Reference Range Interpretation Comments UA pH (test code = UA pH) 7.0 1 5.0-8.0 [facility] AND [id number] 16:48:00 Test Item Value Reference Range Interpretation Comments UA Spec Grav (test code = UA Spec 1.015 1 Grav) [facility] AND [id number] 16:48:00 Test Item Value Reference Range Interpretation Comments UA Color (test code = Yellow *NA*(05/22/18 UA Color) 10:48 AM) [facility] AND [id number] 16:48:00 Test Item Value Reference Range Interpretation Comments UA Turbidity (test code = Clear (05/22/18 10:48 UA Turbidity) AM) [facility] AND [id number] 16:48:00 Test Item Value Reference Range Interpretation Comments UA Mucus (test code = UA Mucus) Few /LPF [facility] AND [id number] 16:48:00 Test Item Value Reference Range Interpretation Comments UA Bacteria (test code = UA Few /HPF Bacteria) [facility] AND [id number] 16:48:00 Test Item Value Reference Range Interpretation Comments UA RBC (test code = 0-2 /HPF See_Comment [Automa lester message] The UA RBC) system which ge nerated this result tra nsmitted reference range : <=2. The reference range was not used to interpr et this result as dany l/abnormal. [facility] AND [id number] 16:48:00 Test Item Value Reference Range Interpretation Comments UA Sq Epi (test code = None Seen (05/22/18 UA Sq Epi) 10:48 AM) [facility] AND [id number] 16:48:00 Test Item Value Reference Range Interpretation Comments UA WBC (test code = UA WBC) 51-100 /HPF [facility]SUSC:PT:ISOLATE:ORDQN:[id number] 16:48:00 Test Item Value Reference Range Interpretation Comments Culture: Urine (test >100,000 CFU/mL Proteus code = Culture: mirabilis 10,000 - Urine) 50,000 CFU/mL Skin Marilee [facility]EM:SUSC:PT:ISOLATE:ORDQN:[id number] 16:48:00 Test Item Value Reference Range Interpretation Comments Proteus mirabilis (test Proteus mirabilis code = Proteus mirabilis) [facility] AND [id number] 16:48:00 Test Item Value Reference Range Interpretation Comments UA Nitrite (test code Negative (05/22/18 10:48 = UA Nitrite) AM) [facility] AND [id number] 16:48:00 Test Item Value Reference Range Interpretation Comments UA Bili (test code = Negative *NA*(05/22/18 UA Bili) 10:48 AM) [facility] AND [id number] 16:48:00 Test Item Value Reference Range Interpretation Comments UA Ketones (test code Negative *NA*(05/22/18 = UA Ketones) 10:48 AM) [facility] AND [id number] 16:48:00 Test Item Value Reference Range Interpretation Comments UA Blood (test code = Trace *ABN*(05/22/18 UA Blood) 10:48 AM) [facility] AND [id number] 16:48:00 Test Item Value Reference Range Interpretation Comments UA Urobilinogen (test code = UA 0.2 0.1-1.0 Urobilinogen) [facility] AND [id number] 16:48:00 Test Item Value Reference Range Interpretation Comments UA Leuk Est (test code Large *ABN*(05/22/18 = UA Leuk Est) 10:48 AM) [facility] AND [id number] 16:48:00 Test Item Value Reference Range Interpretation Comments UA Protein (test code Negative (05/22/18 10:48 = UA Protein) AM) [facility] AND [id number] 16:48:00 Test Item Value Reference Range Interpretation Comments UA Glucose (test code Negative (05/22/18 10:48 = UA Glucose) AM) [facility] AND [id number] 16:48:00 Test Item Value Reference Range Interpretation Comments UA pH (test code = UA pH) 7.0 1 5.0-8.0 [facility] AND [id number] 16:48:00 Test Item Value Reference Range Interpretation Comments UA Spec Grav (test code = UA Spec 1.015 1 Grav) [facility] AND [id number] 16:48:00 Test Item Value Reference Range Interpretation Comments UA Color (test code = Yellow *NA*(05/22/18 UA Color) 10:48 AM) [facility] AND [id number] 16:48:00 Test Item Value Reference Range Interpretation Comments UA Turbidity (test code = Clear (05/22/18 10:48 UA Turbidity) AM) [facility] AND [id number] 16:48:00 Test Item Value Reference Range Interpretation Comments UA Mucus (test code = UA Mucus) Few /LPF [facility] AND [id number] 16:48:00 Test Item Value Reference Range Interpretation Comments UA Bacteria (test code = UA Few /HPF Bacteria) [facility] [id number] 16:48:00 Test Item Value Reference Range Interpretation Comments UA RBC (test code = 0-2 /HPF See_Comment [Automa lester message] The UA RBC) system which ge nerated this result tra nsmitted reference range : <=2. The reference range was not used to interpr et this result as dany l/abnormal. [facility] AND [id number] 16:48:00 Test Item Value Reference Range Interpretation Comments UA Sq Epi (test code = None Seen (05/22/18 UA Sq Epi) 10:48 AM) [facility] AND [id number] 16:48:00 Test Item Value Reference Range Interpretation Comments UA WBC (test code = UA WBC) 51-100 /HPF [facility]EN[facility]:SUSC:PT:ISOLATE:ORDQN:[id number] 16:48:00 Test Item Value Reference Range Interpretation Comments Culture: Urine (test >100,000 CFU/mL Proteus code = Culture: mirabilis 10,000 - Urine) 50,000 CFU/mL Skin [facility]ERTAPENEM:SUSC:PT:ISOLATE:ORDQN:[id number] 16:48:00 Test Item Value Reference Range Interpretation Comments Proteus mirabilis (test Proteus mirabilis code = Proteus mirabilis) [facility] AND [id number] 16:48:00 Test Item Value Reference Range Interpretation Comments UA Nitrite (test code Negative (05/22/18 10:48 = UA Nitrite) AM) [facility] AND [id number] 16:48:00 Test Item Value Reference Range Interpretation Comments UA Bili (test code = Negative *NA*(05/22/18 UA Bili) 10:48 AM) [facility] AND [id number] 16:48:00 Test Item Value Reference Range Interpretation Comments UA Ketones (test code Negative *NA*(05/22/18 = UA Ketones) 10:48 AM) [facility] AND [id number] 16:48:00 Test Item Value Reference Range Interpretation Comments UA Blood (test code = Trace *ABN*(05/22/18 UA Blood) 10:48 AM) [facility] AND [id number] 16:48:00 Test Item Value Reference Range Interpretation Comments UA Urobilinogen (test code = UA 0.2 0.1-1.0 Urobilinogen) [facility] AND [id number] 16:48:00 Test Item Value Reference Range Interpretation Comments UA Leuk Est (test code Large *ABN*(05/22/18 = UA Leuk Est) 10:48 AM) [facility] AND [id number] 16:48:00 Test Item Value Reference Range Interpretation Comments UA Protein (test code Negative (05/22/18 10:48 = UA Protein) AM) [facility] AND [id number] 16:48:00 Test Item Value Reference Range Interpretation Comments UA Glucose (test code Negative (05/22/18 10:48 = UA Glucose) AM) [facility] AND [id number] 16:48:00 Test Item Value Reference Range Interpretation Comments UA pH (test code = UA pH) 7.0 1 5.0-8.0 [facility] AND [id number] 16:48:00 Test Item Value Reference Range Interpretation Comments UA Spec Grav (test code = UA Spec 1.015 1 Grav) [facility] AND [id number] 16:48:00 Test Item Value Reference Range Interpretation Comments UA Color (test code = Yellow *NA*(05/22/18 UA Color) 10:48 AM) [facility] AND [id number] 16:48:00 Test Item Value Reference Range Interpretation Comments UA Turbidity (test code = Clear (05/22/18 10:48 UA Turbidity) AM) [facility] AND [id number] 16:48:00 Test Item Value Reference Range Interpretation Comments UA Mucus (test code = UA Mucus) Few /LPF [facility] AND [id number] 16:48:00 Test Item Value Reference Range Interpretation Comments UA Bacteria (test code = UA Few /HPF Bacteria) [facility] AND [id number] 16:48:00 Test Item Value Reference Range Interpretation Comments UA RBC (test code = 0-2 /HPF See_Comment [Automa lester message] The UA RBC) system which ge nerated this result tra nsmitted reference range : <=2. The reference range was not used to interpr et this result as dany l/abnormal. [facility] AND [id number] 16:48:00 Test Item Value Reference Range Interpretation Comments UA Sq Epi (test code = None Seen (05/22/18 UA Sq Epi) 10:48 AM) [facility] AND [id number] 16:48:00 Test Item Value Reference Range Interpretation Comments UA WBC (test code = UA WBC) 51-100 /HPF [facility]PT:ISOLATE:ORDQN:[id number] 16:48:00 Test Item Value Reference Range Interpretation Comments Culture: Urine (test >100,000 CFU/mL Proteus code = Culture: mirabilis 10,000 - Urine) 50,000 CFU/mL Skin [facility]C:PT:ISOLATE:ORDQN:[id number] 16:48:00 Test Item Value Reference Range Interpretation Comments Proteus mirabilis (test Proteus mirabilis code = Proteus mirabilis) [facility] AND [id number] 16:48:00 Test Item Value Reference Range Interpretation Comments UA Nitrite (test code Negative (05/22/18 10:48 = UA Nitrite) AM) [facility] AND [id number] 16:48:00 Test Item Value Reference Range Interpretation Comments UA Bili (test code = Negative *NA*(05/22/18 UA Bili) 10:48 AM) [facility] AND [id number] 16:48:00 Test Item Value Reference Range Interpretation Comments UA Ketones (test code Negative *NA*(05/22/18 = UA Ketones) 10:48 AM) [facility] AND [id number] 16:48:00 Test Item Value Reference Range Interpretation Comments UA Blood (test code = Trace *ABN*(05/22/18 UA Blood) 10:48 AM) [facility] AND [id number] 16:48:00 Test Item Value Reference Range Interpretation Comments UA Urobilinogen (test code = UA 0.2 0.1-1.0 Urobilinogen) [facility] AND [id number] 16:48:00 Test Item Value Reference Range Interpretation Comments UA Leuk Est (test code Large *ABN*(05/22/18 = UA Leuk Est) 10:48 AM) [facility] AND [id number] 16:48:00 Test Item Value Reference Range Interpretation Comments UA Protein (test code Negative (05/22/18 10:48 = UA Protein) AM) [facility] AND [id number] 16:48:00 Test Item Value Reference Range Interpretation Comments UA Glucose (test code Negative (05/22/18 10:48 = UA Glucose) AM) [facility] AND [id number] 16:48:00 Test Item Value Reference Range Interpretation Comments UA pH (test code = UA pH) 7.0 1 5.0-8.0 [facility] AND [id number] 16:48:00 Test Item Value Reference Range Interpretation Comments UA Spec Grav (test code = UA Spec 1.015 1 Grav) [facility] AND [id number] 16:48:00 Test Item Value Reference Range Interpretation Comments UA Color (test code = Yellow *NA*(05/22/18 UA Color) 10:48 AM) [facility] AND [id number] 16:48:00 Test Item Value Reference Range Interpretation Comments UA Turbidity (test code = Clear (05/22/18 10:48 UA Turbidity) AM) [facility] AND [id number] 16:48:00 Test Item Value Reference Range Interpretation Comments UA Mucus (test code = UA Mucus) Few /LPF [facility] AND [id number] 16:48:00 Test Item Value Reference Range Interpretation Comments UA Bacteria (test code = UA Few /HPF Bacteria) [facility] AND [id number] 16:48:00 Test Item Value Reference Range Interpretation Comments UA RBC (test code = 0-2 /HPF See_Comment [Automa lester message] The UA RBC) system which ge nerated this result tra nsmitted reference range : <=2. The reference range was not used to interpr et this result as dany l/abnormal. [facility] AND [id number] 16:48:00 Test Item Value Reference Range Interpretation Comments UA Sq Epi (test code = None Seen (05/22/18 UA Sq Epi) 10:48 AM) [facility] AND [id number] 16:48:00 Test Item Value Reference Range Interpretation Comments UA WBC (test code = UA WBC) 51-100 /HPF [facility]C:PT:ISOLATE:ORDQN:[id number] 16:48:00 Test Item Value Reference Range Interpretation Comments Culture: Urine (test >100,000 CFU/mL Proteus code = Culture: mirabilis 10,000 - Urine) 50,000 CFU/mL Skin [facility]ERT[facility]EM:SUSC:PT:ISOLATE:ORDQN:[id number] 16:48:00 Test Item Value Reference Range Interpretation Comments Proteus mirabilis (test Proteus mirabilis code = Proteus mirabilis) [facility] AND [id number] 16:48:00 Test Item Value Reference Range Interpretation Comments UA Nitrite (test code Negative (05/22/18 10:48 = UA Nitrite) AM) [facility] AND [id number] 16:48:00 Test Item Value Reference Range Interpretation Comments UA Bili (test code = Negative *NA*(05/22/18 UA Bili) 10:48 AM) [facility] AND [id number] 16:48:00 Test Item Value Reference Range Interpretation Comments UA Ketones (test code Negative *NA*(05/22/18 = UA Ketones) 10:48 AM) [facility] AND [id number] 16:48:00 Test Item Value Reference Range Interpretation Comments UA Blood (test code = Trace *ABN*(05/22/18 UA Blood) 10:48 AM) [facility] AND [id number] 16:48:00 Test Item Value Reference Range Interpretation Comments UA Urobilinogen (test code = UA 0.2 0.1-1.0 Urobilinogen) [facility] AND [id number] 16:48:00 Test Item Value Reference Range Interpretation Comments UA Leuk Est (test code Large *ABN*(05/22/18 = UA Leuk Est) 10:48 AM) [facility] AND [id number] 16:48:00 Test Item Value Reference Range Interpretation Comments UA Protein (test code Negative (05/22/18 10:48 = UA Protein) AM) [facility] AND [id number] 16:48:00 Test Item Value Reference Range Interpretation Comments UA Glucose (test code Negative (05/22/18 10:48 = UA Glucose) AM) [facility] AND [id number] 16:48:00 Test Item Value Reference Range Interpretation Comments UA pH (test code = UA pH) 7.0 1 5.0-8.0 [facility] AND [id number] 16:48:00 Test Item Value Reference Range Interpretation Comments UA Spec Grav (test code = UA Spec 1.015 1 Grav) [facility] AND [id number] 16:48:00 Test Item Value Reference Range Interpretation Comments UA Color (test code = Yellow *NA*(05/22/18 UA Color) 10:48 AM) [facility] AND [id number] 16:48:00 Test Item Value Reference Range Interpretation Comments UA Turbidity (test code = Clear (05/22/18 10:48 UA Turbidity) AM) [facility] AND [id number] 16:48:00 Test Item Value Reference Range Interpretation Comments UA Mucus (test code = UA Mucus) Few /LPF [facility] AND [id number] 16:48:00 Test Item Value Reference Range Interpretation Comments UA Bacteria (test code = UA Few /HPF Bacteria) [facility] AND [id number] 16:48:00 Test Item Value Reference Range Interpretation Comments UA RBC (test code = 0-2 /HPF See_Comment [Automa lester message] The UA RBC) system which ge nerated this result tra nsmitted reference range : <=2. The reference range was not used to interpr et this result as dany l/abnormal. [facility] AND [id number] 16:48:00 Test Item Value Reference Range Interpretation Comments UA Sq Epi (test code = None Seen (05/22/18 UA Sq Epi) 10:48 AM) [facility] AND [id number] 16:48:00 Test Item Value Reference Range Interpretation Comments UA WBC (test code = UA WBC) 51-100 /HPF [facility]PT:ISOLATE:ORDQN:[id number] 16:48:00 Test Item Value Reference Range Interpretation Comments Culture: Urine (test >100,000 CFU/mL Proteus code = Culture: mirabilis 10,000 - Urine) 50,000 CFU/mL Skin [facility]:SUSC:PT:ISOLATE:ORDQN:[id number] 16:48:00 Test Item Value Reference Range Interpretation Comments Proteus mirabilis (test Proteus mirabilis code = Proteus mirabilis) [facility] AND [id number] 16:48:00 Test Item Value Reference Range Interpretation Comments UA Nitrite (test code Negative (05/22/18 10:48 = UA Nitrite) AM) [facility] AND [id number] 16:48:00 Test Item Value Reference Range Interpretation Comments UA Bili (test code = Negative *NA*(05/22/18 UA Bili) 10:48 AM) [facility] AND [id number] 16:48:00 Test Item Value Reference Range Interpretation Comments UA Ketones (test code Negative *NA*(05/22/18 = UA Ketones) 10:48 AM) [facility] AND [id number] 16:48:00 Test Item Value Reference Range Interpretation Comments UA Blood (test code = Trace *ABN*(05/22/18 UA Blood) 10:48 AM) [facility] AND [id number] 16:48:00 Test Item Value Reference Range Interpretation Comments UA Urobilinogen (test code = UA 0.2 0.1-1.0 Urobilinogen) [facility] AND [id number] 16:48:00 Test Item Value Reference Range Interpretation Comments UA Leuk Est (test code Large *ABN*(05/22/18 = UA Leuk Est) 10:48 AM) [facility] AND [id number] 16:48:00 Test Item Value Reference Range Interpretation Comments UA Protein (test code Negative (05/22/18 10:48 = UA Protein) AM) [facility] AND [id number] 16:48:00 Test Item Value Reference Range Interpretation Comments UA Glucose (test code Negative (05/22/18 10:48 = UA Glucose) AM) [facility] AND [id number] 16:48:00 Test Item Value Reference Range Interpretation Comments UA pH (test code = UA pH) 7.0 1 5.0-8.0 [facility] AND [id number] 16:48:00 Test Item Value Reference Range Interpretation Comments UA Spec Grav (test code = UA Spec 1.015 1 Grav) [facility] AND [id number] 16:48:00 Test Item Value Reference Range Interpretation Comments UA Color (test code = Yellow *NA*(05/22/18 UA Color) 10:48 AM) [facility] AND [id number] 16:48:00 Test Item Value Reference Range Interpretation Comments UA Turbidity (test code = Clear (05/22/18 10:48 UA Turbidity) AM) [facility] AND [id number] 16:48:00 Test Item Value Reference Range Interpretation Comments UA Mucus (test code = UA Mucus) Few /LPF [facility] AND [id number] 16:48:00 Test Item Value Reference Range Interpretation Comments UA Bacteria (test code = UA Few /HPF Bacteria) [facility] AND [id number] 16:48:00 Test Item Value Reference Range Interpretation Comments UA RBC (test code = 0-2 /HPF See_Comment [Automa lester message] The UA RBC) system which ge nerated this result tra nsmitted reference range : <=2. The reference range was not used to interpr et this result as dany l/abnormal. [facility] AND [id number] 16:48:00 Test Item Value Reference Range Interpretation Comments UA Sq Epi (test code = None Seen (05/22/18 UA Sq Epi) 10:48 AM) [facility] AND [id number] 16:48:00 Test Item Value Reference Range Interpretation Comments UA WBC (test code = UA WBC) 51-100 /HPF [facility]:SUSC:PT:ISOLATE:ORDQN:[id number] 16:48:00 Test Item Value Reference Range Interpretation Comments Culture: Urine (test >100,000 CFU/mL Proteus code = Culture: mirabilis 10,000 - Urine) 50,000 CFU/mL Skin [facility]:SUSC:PT:ISOLATE:ORDQN:[id number] 16:48:00 Test Item Value Reference Range Interpretation Comments Proteus mirabilis (test Proteus mirabilis code = Proteus mirabilis) [facility] AND [id number] 16:48:00 Test Item Value Reference Range Interpretation Comments UA Nitrite (test code Negative (05/22/18 10:48 = UA Nitrite) AM) [facility] AND [id number] 16:48:00 Test Item Value Reference Range Interpretation Comments UA Bili (test code = Negative *NA*(05/22/18 UA Bili) 10:48 AM) [facility] AND [id number] 16:48:00 Test Item Value Reference Range Interpretation Comments UA Ketones (test code Negative *NA*(05/22/18 = UA Ketones) 10:48 AM) [facility] AND [id number] 16:48:00 Test Item Value Reference Range Interpretation Comments UA Blood (test code = Trace *ABN*(05/22/18 UA Blood) 10:48 AM) [facility] AND [id number] 16:48:00 Test Item Value Reference Range Interpretation Comments UA Urobilinogen (test code = UA 0.2 0.1-1.0 Urobilinogen) [facility] AND [id number] 16:48:00 Test Item Value Reference Range Interpretation Comments UA Leuk Est (test code Large *ABN*(05/22/18 = UA Leuk Est) 10:48 AM) [facility] AND [id number] 16:48:00 Test Item Value Reference Range Interpretation Comments UA Protein (test code Negative (05/22/18 10:48 = UA Protein) AM) [facility] AND [id number] 16:48:00 Test Item Value Reference Range Interpretation Comments UA Glucose (test code Negative (05/22/18 10:48 = UA Glucose) AM) [facility] AND [id number] 16:48:00 Test Item Value Reference Range Interpretation Comments UA pH (test code = UA pH) 7.0 1 5.0-8.0 [facility] AND [id number] 16:48:00 Test Item Value Reference Range Interpretation Comments UA Spec Grav (test code = UA Spec 1.015 1 Grav) [facility] AND [id number] 16:48:00 Test Item Value Reference Range Interpretation Comments UA Color (test code = Yellow *NA*(05/22/18 UA Color) 10:48 AM) [facility] AND [id number] 16:48:00 Test Item Value Reference Range Interpretation Comments UA Turbidity (test code = Clear (05/22/18 10:48 UA Turbidity) AM) [facility] AND [id number] 16:48:00 Test Item Value Reference Range Interpretation Comments UA Mucus (test code = UA Mucus) Few /LPF [facility] AND [id number] 16:48:00 Test Item Value Reference Range Interpretation Comments UA Bacteria (test code = UA Few /HPF Bacteria) [facility] AND [id number] 16:48:00 Test Item Value Reference Range Interpretation Comments UA RBC (test code = 0-2 /HPF See_Comment [Automa lester message] The UA RBC) system which ge nerated this result tra nsmitted reference range : <=2. The reference range was not used to interpr et this result as dany l/abnormal. [facility] AND [id number] 16:48:00 Test Item Value Reference Range Interpretation Comments UA Sq Epi (test code = None Seen (05/22/18 UA Sq Epi) 10:48 AM) [facility] AND [id number] 16:48:00 Test Item Value Reference Range Interpretation Comments UA WBC (test code = UA WBC) 51-100 /HPF [facility] [employer] [id number] 11:57:00 Test Item Value Reference Range Interpretation Comments Antibody Scrn (test Negative (05/22/18 5:57 code = Antibody Scrn) AM) [facility] [employer] [id number] 11:57:00 Test Item Value Reference Range Interpretation Comments ABO/Rh (test code = ABO/Rh) AB POS [facility] [id number] 11:57:00 Test Item Value Reference Range Interpretation Comments PTT (test code = PTT) 33.4 s 22.9-35.8 [facility] [id number] 11:57:00 Test Item Value Reference Range Interpretation Comments PT (test code = PT) 13.7 s 12.0-14.7 [id number] 11:57:00 Test Item Value Reference Range Interpretation Comments INR (test code = INR) 1.05 1 0.85-1.17 [facility] [id number] 11:57:00 Test Item Value Reference Range Interpretation Comments Antibody Scrn (test Negative (05/22/18 5:57 code = Antibody Scrn) AM) [facility] [id number] 11:57:00 Test Item Value Reference Range Interpretation Comments ABO/Rh (test code = ABO/Rh) AB POS [facility] Ho[id number] 11:57:00 Test Item Value Reference Range Interpretation Comments PTT (test code = PTT) 33.4 s 22.9-35.8 [facility] Hospit[id number] 11:57:00 Test Item Value Reference Range Interpretation Comments PT (test code = PT) 13.7 s 12.0-14.7 [facility] HospitalCewalsdFBNVUGFKWT9490-51-04 11:57:00 Test Item Value Reference Range Interpretation Comments INR (test code = INR) 1.05 1 0.85-1.17 [facility] [id number] 11:57:00 Test Item Value Reference Range Interpretation Comments Antibody Scrn (test Negative (05/22/18 5:57 code = Antibody Scrn) AM) [facility] [id number] 11:57:00 Test Item Value Reference Range Interpretation Comments ABO/Rh (test code = ABO/Rh) AB POS [facility] H[id number] 11:57:00 Test Item Value Reference Range Interpretation Comments PTT (test code = PTT) 33.4 s 22.9-35.8 [facility] HospitalElwukufXZPWRBZRFC0745-93-31 11:57:00 Test Item Value Reference Range Interpretation Comments PT (test code = PT) 13.7 s 12.0-14.7 [facility] Hos[id number] 11:57:00 Test Item Value Reference Range Interpretation Comments INR (test code = INR) 1.05 1 0.85-1.17 [facility] [id number] 11:57:00 Test Item Value Reference Range Interpretation Comments Antibody Scrn (test Negative (05/22/18 5:57 code = Antibody Scrn) AM) [facility] [id number] 11:57:00 Test Item Value Reference Range Interpretation Comments ABO/Rh (test code = ABO/Rh) AB POS [facility] Hos[id number] 11:57:00 Test Item Value Reference Range Interpretation Comments PTT (test code = PTT) 33.4 s 22.9-35.8 [facility] Hospit[id number] 11:57:00 Test Item Value Reference Range Interpretation Comments PT (test code = PT) 13.7 s 12.0-14.7 [facility] HospitalCrsqyibFBZYWRLFUE9992-05-66 11:57:00 Test Item Value Reference Range Interpretation Comments INR (test code = INR) 1.05 1 0.85-1.17 [facility] [id number] 11:57:00 Test Item Value Reference Range Interpretation Comments Antibody Scrn (test Negative (05/22/18 5:57 code = Antibody Scrn) AM) [facility] [id number] 11:57:00 Test Item Value Reference Range Interpretation Comments ABO/Rh (test code = ABO/Rh) AB POS [facility] Ho[id number] 11:57:00 Test Item Value Reference Range Interpretation Comments PTT (test code = PTT) 33.4 s 22.9-35.8 [facility] Hospit[id number] 11:57:00 Test Item Value Reference Range Interpretation Comments PT (test code = PT) 13.7 s 12.0-14.7 [facility] HospitalVurgwjaNFWDSVJGLG8898-63-92 11:57:00 Test Item Value Reference Range Interpretation Comments INR (test code = INR) 1.05 1 0.85-1.17 [facility] [employer] [id number] 11:57:00 Test Item Value Reference Range Interpretation Comments Antibody Scrn (test Negative (05/22/18 5:57 code = Antibody Scrn) AM) [facility] [id number] 11:57:00 Test Item Value Reference Range Interpretation Comments ABO/Rh (test code = ABO/Rh) AB POS [facility] Hos[id number] 11:57:00 Test Item Value Reference Range Interpretation Comments PTT (test code = PTT) 33.4 s 22.9-35.8 [facility] HospitalCtdyjybKLOAISAORH5614-59-99 11:57:00 Test Item Value Reference Range Interpretation Comments PT (test code = PT) 13.7 s 12.0-14.7 [facility] HospitalSalyizzSZCZGOTZVH9565-48-43 11:57:00 Test Item Value Reference Range Interpretation Comments INR (test code = INR) 1.05 1 0.85-1.17 [facility] [employer] [facility] [id number] 11:57:00 Test Item Value Reference Range Interpretation Comments Antibody Scrn (test Negative (05/22/18 5:57 code = Antibody Scrn) AM) [facility] [employer] [facility] [id number] 11:57:00 Test Item Value Reference Range Interpretation Comments ABO/Rh (test code = ABO/Rh) AB POS [facility] Hospit[id number] 11:57:00 Test Item Value Reference Range Interpretation Comments PTT (test code = PTT) 33.4 s 22.9-35.8 [facility] BrookYbbjndiDEUPMRJTTI7579-25-72 11:57:00 Test Item Value Reference Range Interpretation Comments PT (test code = PT) 13.7 s 12.0-14.7 [facility] PointeCwrscufZJOFPMFJRS0083-55-74 11:57:00 Test Item Value Reference Range Interpretation Comments INR (test code = INR) 1.05 1 0.85-1.17 [facility]inte[facility] [id number] 10:50:01 Test Item Value Reference Range Interpretation Comments eGFR (test code = eGFR) 133 [facility] [id number] 10:50:01 Test Item Value Reference Range Interpretation Comments Calcium Lvl (test code = Calcium Lvl) 9.4 8.5-10.5 [facility] [employer] [id number] 10:50:01 Test Item Value Reference Range Interpretation Comments CO2 (test code = CO2) 28 24-32 [facility] [employer] [id number] 10:50:01 Test Item Value Reference Range Interpretation Comments BUN (test code = BUN) 14 7-22 [facility] [id number] 10:50:01 Test Item Value Reference Range Interpretation Comments Glucose Lvl (test code = Glucose Lvl) 89 70-99 [facility]2018-11-08 10:50:01 Test Item Value Reference Range Interpretation Comments Chloride Lvl (test code = Chloride Lvl) 104 95-109 [facility]2018-11-08 10:50:01 Test Item Value Reference Range Interpretation Comments Potassium Lvl (test code = Potassium 4.2 3.5-5.1 Lvl) [facility]2018-11-08 10:50:01 Test Item Value Reference Range Interpretation Comments Sodium Lvl (test code = Sodium Lvl) 137 135-145 [facility]2018-11-08 10:50:01 Test Item Value Reference Range Interpretation Comments Creatinine Lvl (test code = Creatinine 0.85 0.50-1.40 Lvl) [facility]2018-11-08 10:50:01 Test Item Value Reference Range Interpretation Comments AGAP (test code = AGAP) 9.2 10.0-20.0 [place] 13600-11-08 10:50:01 Test Item Value Reference Range Interpretation Comments ACT (TEG) Rapid (test code = ACT (TEG) 136 s 86-118 Rapid) [facility] HospitalLmylqtsYUCSUIFZCF6285-69-58 10:50:01 Test Item Value Reference Range Interpretation Comments Split Point Rapid (test code = Split 0.6 min Point Rapid) [facility] HospitalIuvqbafPORBVPAWAM9709-00-72 10:50:01 Test Item Value Reference Range Interpretation Comments R-time Rapid (test code = R-time 0.9 min 0.4-0.7 Rapid) [facility] HospitalMefzammXJPPAYDAAI5257-88-48 10:50:01 Test Item Value Reference Range Interpretation Comments K-time Rapid (test code = K-time 1.4 min 0.6-2.3 Rapid) [facility] HospitalBtxelxmWWFDELOECX6799-57-27 10:50:01 Test Item Value Reference Range Interpretation Comments Angle Rapid (test code = Angle 71 degrees 64-80 Rapid) [facility] HospitalNmgzennCORSVXSRFK1862-80-01 10:50:01 Test Item Value Reference Range Interpretation Comments G-value Rapid (test code = G-value 12.7 5.0-11.6 Rapid) [facility] HospitalQucdpmaDOHCWSUZUK4060-72-70 10:50:01 Test Item Value Reference Range Interpretation Comments Max Amplitude Rapid (test code = Max 72 mm 52-71 Amplitude Rapid) [facility] HospitalPunmjioPLYLXLMIHF7040-85-33 10:50:01 Test Item Value Reference Range Interpretation Comments Estimated % Lysis Rapid 0.1 See_Comment [Au tomated message] The (test code = Estimated syste m which generated % Lysis Rapid) this result t ransmitted reference range : <=7.5. The reference r boubacar was not used to int erpret this result as normal/abnormal . [facility] HospitalAmfgetuESIQBDIVGQ9755-45-93 10:50:01 Test Item Value Reference Range Interpretation Comments Platelet (test code = Platelet) 367 133-450 [facility] HospitalVdjyjnuPBOHKIWIXJ1093-95-11 10:50:01 Test Item Value Reference Range Interpretation Comments MPV (test code = MPV) 7.8 7.4-10.4 [facility] HospitalZnsxhtwYPNDEGMLDJ1314-27-15 10:50:01 Test Item Value Reference Range Interpretation Comments MCH (test code = MCH) 27.4 pg 27.0-31.0 [facility] HospitalSxcrhueBSSWQMWQVE2158-33-89 10:50:01 Test Item Value Reference Range Interpretation Comments MCV (test code = MCV) 80.7 80.0-94.0 [facility] HospitalWtidhkyRSVPUORTWV0261-60-40 10:50:01 Test Item Value Reference Range Interpretation Comments MCHC (test code = MCHC) 34.0 32.0-36.0 [facility] HospitalZugakklJSOJCMQKZX5817-07-26 10:50:01 Test Item Value Reference Range Interpretation Comments RDW (test code = RDW) 18.9 11.5-14.5 [facility] HospitalGhazcfdAGXOOKPHGA3841-15-74 10:50:01 Test Item Value Reference Range Interpretation Comments Hct (test code = Hct) 43.3 42.0-54.0 [facility] HospitalUkuwhviKOBHYWLACW3748-13-84 10:50:01 Test Item Value Reference Range Interpretation Comments WBC (test code = WBC) 9.3 3.7-10.4 [facility] HospitalPzeiwyaTPCPHDHYFN5911-64-59 10:50:01 Test Item Value Reference Range Interpretation Comments Hgb (test code = Hgb) 14.7 14.0-18.0 [facility] HospitalLbcqzhxYZZOZTDBQG9522-06-41 10:50:01 Test Item Value Reference Range Interpretation Comments RBC (test code = RBC) 5.36 4.70-6.10 [facility] HospitalGvlhibdDTPRPZIGIY7996-42-15 10:50:01 Test Item Value Reference Range Interpretation Comments Eosinophils # (test code 0.2 See_Comment [A utomated message] The = Eosinophils #) system whic h generated this result tra nsmitted reference range : <=0.5. The reference r boubacar was not used to int erpret this result as normal/abnormal . [facility] HospitalCxljhjbJCLXHNBHQM3572-54-82 10:50:01 Test Item Value Reference Range Interpretation Comments Basophils # (test code 0.1 See_Comment [Aut omated message] The = Basophils #) system which generated this result tra nsmitted reference range : <=0.2. The reference r boubacar was not used to int erpret this result as normal/abnormal . [facility] HospitalWexmheaFZFBAROCYL0519-15-29 10:50:01 Test Item Value Reference Range Interpretation Comments Lymphocytes # (test code = Lymphocytes 1.8 1.0-5.5 #) [facility] HospitalUcfochtACTUBIMSMT2621-23-07 10:50:01 Test Item Value Reference Range Interpretation Comments Monocytes # (test code 0.9 See_Comment [Aut omated message] The = Monocytes #) system which generated this result tra nsmitted reference range : <=0.8. The reference r boubacar was not used to int erpret this result as normal/abnormal . [facility] HospitalRwpnambXWWHBNWOBV3545-28-05 10:50:01 Test Item Value Reference Range Interpretation Comments Neutrophils # (test code = Neutrophils 6.3 1.5-8.1 #) [facility] HospitalYgxxmyvJUNBIAPGHK5398-41-93 10:50:01 Test Item Value Reference Range Interpretation Comments Eosinophils (test code = 2.0 See_Comment [A utomated message] The Eosinophils) system which ge nerated this result tra nsmitted reference range : <=4.0. The reference r boubacar was not used to int erpret this result as normal/abnormal . [facility] HospitalZwnydqdOYJQGOCJOM4227-02-33 10:50:01 Test Item Value Reference Range Interpretation Comments Segs (test code = Segs) 67.4 45.0-75.0 [facility] HospitalUchrimfDFASMLMVNB6672-85-13 10:50:01 Test Item Value Reference Range Interpretation Comments Lymphocytes (test code = Lymphocytes) 19.9 20.0-40.0 [facility] HospitalAjzeoefCFNONVCODH1333-69-03 10:50:01 Test Item Value Reference Range Interpretation Comments Basophils (test code = 1.0 See_Comment [Aut omated message] The Basophils) system which ge nerated this result tra nsmitted reference range : <=1.0. The reference r boubacar was not used to int erpret this result as normal/abnormal . [facility] HospitalHpacvvmRJSDCFJKWN7171-56-38 10:50:01 Test Item Value Reference Range Interpretation Comments Monocytes (test code = Monocytes) 9.7 2.0-12.0 [facility]2018-11-08 10:50:01 Test Item Value Reference Range Interpretation Comments eGFR (test code = eGFR) 133 [facility]2018-11-08 10:50:01 Test Item Value Reference Range Interpretation Comments Calcium Lvl (test code = Calcium Lvl) 9.4 8.5-10.5 [facility]2018-11-08 10:50:01 Test Item Value Reference Range Interpretation Comments CO2 (test code = CO2) 28 24-32 [facility]2018-11-08 10:50:01 Test Item Value Reference Range Interpretation Comments BUN (test code = BUN) 14 7-22 [facility]2018-11-08 10:50:01 Test Item Value Reference Range Interpretation Comments Glucose Lvl (test code = Glucose Lvl) 89 70-99 [facility]2018-11-08 10:50:01 Test Item Value Reference Range Interpretation Comments Chloride Lvl (test code = Chloride Lvl) 104 95-109 [facility]2018-11-08 10:50:01 Test Item Value Reference Range Interpretation Comments Potassium Lvl (test code = Potassium 4.2 3.5-5.1 Lvl) [facility]2018-11-08 10:50:01 Test Item Value Reference Range Interpretation Comments Sodium Lvl (test code = Sodium Lvl) 137 135-145 [facility]2018-11-08 10:50:01 Test Item Value Reference Range Interpretation Comments Creatinine Lvl (test code = Creatinine 0.85 0.50-1.40 Lvl) [facility]2018-11-08 10:50:01 Test Item Value Reference Range Interpretation Comments AGAP (test code = AGAP) 9.2 10.0-20.0 [facility] HospitalTuperjbBTWUFZJCNN6742-16-21 10:50:01 Test Item Value Reference Range Interpretation Comments ACT (TEG) Rapid (test code = ACT (TEG) 136 s 86-118 Rapid) [facility] HospitalTafzrsgFXHERNECJH8454-92-02 10:50:01 Test Item Value Reference Range Interpretation Comments Split Point Rapid (test code = Split 0.6 min Point Rapid) [facility] HospitalMxoanhnLQEZWOXYUU4286-20-95 10:50:01 Test Item Value Reference Range Interpretation Comments R-time Rapid (test code = R-time 0.9 min 0.4-0.7 Rapid) [facility] HospitalXildiltOPMYOSXGFL1896-74-13 10:50:01 Test Item Value Reference Range Interpretation Comments K-time Rapid (test code = K-time 1.4 min 0.6-2.3 Rapid) [facility] HospitalIodnkupIGSJKOZFOF2310-19-78 10:50:01 Test Item Value Reference Range Interpretation Comments Angle Rapid (test code = Angle 71 degrees 64-80 Rapid) [facility] HospitalZzkjfkwAHSRNREWHU8175-14-19 10:50:01 Test Item Value Reference Range Interpretation Comments G-value Rapid (test code = G-value 12.7 5.0-11.6 Rapid) [facility] HospitalFmqkehfSVFIVAWKUI5899-84-39 10:50:01 Test Item Value Reference Range Interpretation Comments Max Amplitude Rapid (test code = Max 72 mm 52-71 Amplitude Rapid) [facility] HospitalQeksmofFMNLHLMETB3210-93-68 10:50:01 Test Item Value Reference Range Interpretation Comments Estimated % Lysis Rapid 0.1 See_Comment [Au tomated message] The (test code = Estimated syste m which generated % Lysis Rapid) this result t ransmitted reference range : <=7.5. The reference r boubacar was not used to int erpret this result as normal/abnormal . [facility] HospitalZlleqqlXWFSCOUCUT4475-93-48 10:50:01 Test Item Value Reference Range Interpretation Comments Platelet (test code = Platelet) 367 133-450 [facility] HospitalTeznsnhADQKARADBQ3371-63-79 10:50:01 Test Item Value Reference Range Interpretation Comments MPV (test code = MPV) 7.8 7.4-10.4 [facility] HospitalYpsexxdTAGOEPNKII3550-53-80 10:50:01 Test Item Value Reference Range Interpretation Comments MCH (test code = MCH) 27.4 pg 27.0-31.0 [facility] HospitalEfeoqwaCIDFISDQVL0695-56-85 10:50:01 Test Item Value Reference Range Interpretation Comments MCV (test code = MCV) 80.7 80.0-94.0 [facility] HospitalCjjqtzmPPXRNELTWW6925-99-36 10:50:01 Test Item Value Reference Range Interpretation Comments MCHC (test code = MCHC) 34.0 32.0-36.0 [facility] HospitalPxywdtoHMFZIPIUMQ5719-05-54 10:50:01 Test Item Value Reference Range Interpretation Comments RDW (test code = RDW) 18.9 11.5-14.5 [facility] HospitalDsrrfhbAMHPYRYUYA3064-78-21 10:50:01 Test Item Value Reference Range Interpretation Comments Hct (test code = Hct) 43.3 42.0-54.0 [facility] HospitalGuwghcbAGICVDXGPS6797-90-16 10:50:01 Test Item Value Reference Range Interpretation Comments WBC (test code = WBC) 9.3 3.7-10.4 [facility] HospitalRpytldqHNQCLCZVFK5095-59-07 10:50:01 Test Item Value Reference Range Interpretation Comments Hgb (test code = Hgb) 14.7 14.0-18.0 [facility] HospitalUsewbeuQTSWOEOMMI1931-10-04 10:50:01 Test Item Value Reference Range Interpretation Comments RBC (test code = RBC) 5.36 4.70-6.10 [facility] HospitalAwkdribFRSMYKQSWL7975-81-58 10:50:01 Test Item Value Reference Range Interpretation Comments Eosinophils # (test code 0.2 See_Comment [A utomated message] The = Eosinophils #) system whic h generated this result tra nsmitted reference range : <=0.5. The reference r boubacar was not used to int erpret this result as normal/abnormal . [facility] HospitalJhavvbnKUVTQVVKMO3416-52-09 10:50:01 Test Item Value Reference Range Interpretation Comments Basophils # (test code 0.1 See_Comment [Aut omated message] The = Basophils #) system which generated this result tra nsmitted reference range : <=0.2. The reference r boubacar was not used to int erpret this result as normal/abnormal . [facility] HospitalOqxynrpEZUWTFPACI4814-60-69 10:50:01 Test Item Value Reference Range Interpretation Comments Lymphocytes # (test code = Lymphocytes 1.8 1.0-5.5 #) [facility] HospitalDditjtyLENBBEITDN8371-15-53 10:50:01 Test Item Value Reference Range Interpretation Comments Monocytes # (test code 0.9 See_Comment [Aut omated message] The = Monocytes #) system which generated this result tra nsmitted reference range : <=0.8. The reference r boubacar was not used to int erpret this result as normal/abnormal . [facility] HospitalWrsrmlwYXVYZUYWRS1323-74-65 10:50:01 Test Item Value Reference Range Interpretation Comments Neutrophils # (test code = Neutrophils 6.3 1.5-8.1 #) [facility] HospitalTzelebuDQYFKSHQBX6347-68-51 10:50:01 Test Item Value Reference Range Interpretation Comments Eosinophils (test code = 2.0 See_Comment [A utomated message] The Eosinophils) system which ge nerated this result tra nsmitted reference range : <=4.0. The reference r boubacar was not used to int erpret this result as normal/abnormal . [facility] HospitalQvpxvxjSQFRNJNLWH4349-33-57 10:50:01 Test Item Value Reference Range Interpretation Comments Segs (test code = Segs) 67.4 45.0-75.0 [facility] HospitalSueedwpYUXHDGXYUZ1260-59-95 10:50:01 Test Item Value Reference Range Interpretation Comments Lymphocytes (test code = Lymphocytes) 19.9 20.0-40.0 [facility] HospitalVvgzjanPFVSMGGNOC0702-26-54 10:50:01 Test Item Value Reference Range Interpretation Comments Basophils (test code = 1.0 See_Comment [Aut omated message] The Basophils) system which ge nerated this result tra nsmitted reference range : <=1.0. The reference r boubacar was not used to int erpret this result as normal/abnormal . [facility] HospitalTrajpcaIHTEZQLSYX7574-89-86 10:50:01 Test Item Value Reference Range Interpretation Comments Monocytes (test code = Monocytes) 9.7 2.0-12.0 [facility]2018-11-08 10:50:01 Test Item Value Reference Range Interpretation Comments eGFR (test code = eGFR) 133 [facility]2018-11-08 10:50:01 Test Item Value Reference Range Interpretation Comments Calcium Lvl (test code = Calcium Lvl) 9.4 8.5-10.5 [facility]2018-11-08 10:50:01 Test Item Value Reference Range Interpretation Comments CO2 (test code = CO2) 28 24-32 [facility]2018-11-08 10:50:01 Test Item Value Reference Range Interpretation Comments BUN (test code = BUN) 14 7-22 [facility]2018-11-08 10:50:01 Test Item Value Reference Range Interpretation Comments Glucose Lvl (test code = Glucose Lvl) 89 70-99 [facility]2018-11-08 10:50:01 Test Item Value Reference Range Interpretation Comments Chloride Lvl (test code = Chloride Lvl) 104 95-109 [facility]2018-11-08 10:50:01 Test Item Value Reference Range Interpretation Comments Potassium Lvl (test code = Potassium 4.2 3.5-5.1 Lvl) [facility]2018-11-08 10:50:01 Test Item Value Reference Range Interpretation Comments Sodium Lvl (test code = Sodium Lvl) 137 135-145 [facility]2018-11-08 10:50:01 Test Item Value Reference Range Interpretation Comments Creatinine Lvl (test code = Creatinine 0.85 0.50-1.40 Lvl) [facility]2018-11-08 10:50:01 Test Item Value Reference Range Interpretation Comments AGAP (test code = AGAP) 9.2 10.0-20.0 [facility] HospitalDfirmitPOVDUALPQT6681-54-67 10:50:01 Test Item Value Reference Range Interpretation Comments ACT (TEG) Rapid (test code = ACT (TEG) 136 s 86-118 Rapid) [facility] HospitalYtnbkyhLUKAZGKRQW1471-36-21 10:50:01 Test Item Value Reference Range Interpretation Comments Split Point Rapid (test code = Split 0.6 min Point Rapid) [facility] HospitalKfyhezfUVICFQEKBR5330-49-77 10:50:01 Test Item Value Reference Range Interpretation Comments R-time Rapid (test code = R-time 0.9 min 0.4-0.7 Rapid) [facility] HospitalXvquynjWYGFAPHJPR0400-98-51 10:50:01 Test Item Value Reference Range Interpretation Comments K-time Rapid (test code = K-time 1.4 min 0.6-2.3 Rapid) [facility] HospitalLkbzvabDOKMVDIGFS8181-48-21 10:50:01 Test Item Value Reference Range Interpretation Comments Angle Rapid (test code = Angle 71 degrees 64-80 Rapid) [place] 996948-11-08 10:50:01 Test Item Value Reference Range Interpretation Comments G-value Rapid (test code = G-value 12.7 5.0-11.6 Rapid) [facility] HospitalPgklpxtJXORRSJWQA5415-90-83 10:50:01 Test Item Value Reference Range Interpretation Comments Max Amplitude Rapid (test code = Max 72 mm 52-71 Amplitude Rapid) [facility] HospitalOxkwkaoLJFSGIYYTT5352-02-28 10:50:01 Test Item Value Reference Range Interpretation Comments Estimated % Lysis Rapid 0.1 See_Comment [Au tomated message] The (test code = Estimated syste m which generated % Lysis Rapid) this result t ransmitted reference range : <=7.5. The reference r boubacar was not used to int erpret this result as normal/abnormal . [facility] HospitalRjhgifzJANJGBFQKF6491-94-70 10:50:01 Test Item Value Reference Range Interpretation Comments Platelet (test code = Platelet) 367 133-450 [facility] HospitalUeavfdmQIDBERJXLX3302-28-78 10:50:01 Test Item Value Reference Range Interpretation Comments MPV (test code = MPV) 7.8 7.4-10.4 [facility] HospitalMozeofyNMPLVEKHSE4937-89-57 10:50:01 Test Item Value Reference Range Interpretation Comments MCH (test code = MCH) 27.4 pg 27.0-31.0 [facility] HospitalXbodimfIETLFCFQKR0020-29-76 10:50:01 Test Item Value Reference Range Interpretation Comments MCV (test code = MCV) 80.7 80.0-94.0 [facility] HospitalHllgmxdGAWZDLWQSN2950-65-48 10:50:01 Test Item Value Reference Range Interpretation Comments MCHC (test code = MCHC) 34.0 32.0-36.0 [facility] HospitalMeapmwdPTCCWCVNCG1330-52-57 10:50:01 Test Item Value Reference Range Interpretation Comments RDW (test code = RDW) 18.9 11.5-14.5 [facility] HospitalCntlnmrBFFHYDHOSP4738-29-97 10:50:01 Test Item Value Reference Range Interpretation Comments Hct (test code = Hct) 43.3 42.0-54.0 [facility] HospitalBpdfqncGSKVPSQRLT4064-22-78 10:50:01 Test Item Value Reference Range Interpretation Comments WBC (test code = WBC) 9.3 3.7-10.4 [facility] HospitalVrcvkhvOSQIUKLENJ1037-45-25 10:50:01 Test Item Value Reference Range Interpretation Comments Hgb (test code = Hgb) 14.7 14.0-18.0 [facility] HospitalPjspqhjYWTZHVMENR0220-54-38 10:50:01 Test Item Value Reference Range Interpretation Comments RBC (test code = RBC) 5.36 4.70-6.10 [facility] HospitalQzwubygRKFDVVCVZH4512-64-76 10:50:01 Test Item Value Reference Range Interpretation Comments Eosinophils # (test code 0.2 See_Comment [A utomated message] The = Eosinophils #) system whic h generated this result tra nsmitted reference range : <=0.5. The reference r boubacar was not used to int erpret this result as normal/abnormal . [facility] HospitalUfrclgqYDVYHXYWWV8056-44-54 10:50:01 Test Item Value Reference Range Interpretation Comments Basophils # (test code 0.1 See_Comment [Aut omated message] The = Basophils #) system which generated this result tra nsmitted reference range : <=0.2. The reference r boubacar was not used to int erpret this result as normal/abnormal . [facility] HospitalUedrfgsLSJADDLLHZ3436-92-06 10:50:01 Test Item Value Reference Range Interpretation Comments Lymphocytes # (test code = Lymphocytes 1.8 1.0-5.5 #) [facility] HospitalEogrvpoYIOBFPFKAJ4232-10-66 10:50:01 Test Item Value Reference Range Interpretation Comments Monocytes # (test code 0.9 See_Comment [Aut omated message] The = Monocytes #) system which generated this result tra nsmitted reference range : <=0.8. The reference r boubacar was not used to int erpret this result as normal/abnormal . [facility] HospitalZeezyicOZEUOPIHGT5059-93-34 10:50:01 Test Item Value Reference Range Interpretation Comments Neutrophils # (test code = Neutrophils 6.3 1.5-8.1 #) [facility] HospitalEtqkfrkQTJJPUVQTP7795-29-26 10:50:01 Test Item Value Reference Range Interpretation Comments Eosinophils (test code = 2.0 See_Comment [A utomated message] The Eosinophils) system which ge nerated this result tra nsmitted reference range : <=4.0. The reference r boubacar was not used to int erpret this result as normal/abnormal . [facility] HospitalWwsmggoZNFGUXYAQT7220-74-91 10:50:01 Test Item Value Reference Range Interpretation Comments Segs (test code = Segs) 67.4 45.0-75.0 [facility] HospitalNfsuvflXWZFYCYGMA6815-69-88 10:50:01 Test Item Value Reference Range Interpretation Comments Lymphocytes (test code = Lymphocytes) 19.9 20.0-40.0 [facility] HospitalXpiwcpmOSBLOXGBIE7289-91-33 10:50:01 Test Item Value Reference Range Interpretation Comments Basophils (test code = 1.0 See_Comment [Aut omated message] The Basophils) system which ge nerated this result tra nsmitted reference range : <=1.0. The reference r boubacar was not used to int erpret this result as normal/abnormal . [facility] HospitalYtalxzlYNSKCSUOSW1971-87-21 10:50:01 Test Item Value Reference Range Interpretation Comments Monocytes (test code = Monocytes) 9.7 2.0-12.0 [facility]2018-11-08 10:50:01 Test Item Value Reference Range Interpretation Comments eGFR (test code = eGFR) 133 [facility]2018-11-08 10:50:01 Test Item Value Reference Range Interpretation Comments Calcium Lvl (test code = Calcium Lvl) 9.4 8.5-10.5 [facility]2018-11-08 10:50:01 Test Item Value Reference Range Interpretation Comments CO2 (test code = CO2) 28 24-32 [facility]2018-11-08 10:50:01 Test Item Value Reference Range Interpretation Comments BUN (test code = BUN) 14 7-22 [facility]2018-11-08 10:50:01 Test Item Value Reference Range Interpretation Comments Glucose Lvl (test code = Glucose Lvl) 89 70-99 [facility]2018-11-08 10:50:01 Test Item Value Reference Range Interpretation Comments Chloride Lvl (test code = Chloride Lvl) 104 95-109 [facility]2018-11-08 10:50:01 Test Item Value Reference Range Interpretation Comments Potassium Lvl (test code = Potassium 4.2 3.5-5.1 Lvl) [facility]2018-11-08 10:50:01 Test Item Value Reference Range Interpretation Comments Sodium Lvl (test code = Sodium Lvl) 137 135-145 [facility]2018-11-08 10:50:01 Test Item Value Reference Range Interpretation Comments Creatinine Lvl (test code = Creatinine 0.85 0.50-1.40 Lvl) [facility]2018-11-08 10:50:01 Test Item Value Reference Range Interpretation Comments AGAP (test code = AGAP) 9.2 10.0-20.0 [facility] HospitalTeppxnkMVAXQPHTJF8442-43-65 10:50:01 Test Item Value Reference Range Interpretation Comments ACT (TEG) Rapid (test code = ACT (TEG) 136 s 86-118 Rapid) [facility] HospitalMcgvmeoCUSNKDTSXA3715-27-55 10:50:01 Test Item Value Reference Range Interpretation Comments Split Point Rapid (test code = Split 0.6 min Point Rapid) [facility] HospitalYatsunvLQWQZFVHIQ9161-99-37 10:50:01 Test Item Value Reference Range Interpretation Comments R-time Rapid (test code = R-time 0.9 min 0.4-0.7 Rapid) [facility] HospitalTbgqtaeMWFCRJCTYG0583-10-81 10:50:01 Test Item Value Reference Range Interpretation Comments K-time Rapid (test code = K-time 1.4 min 0.6-2.3 Rapid) [facility] HospitalEvacfigMYHHOXJVCP2612-96-35 10:50:01 Test Item Value Reference Range Interpretation Comments Angle Rapid (test code = Angle 71 degrees 64-80 Rapid) [facility] HospitalKjirrlvACKHAEZNVW4605-75-10 10:50:01 Test Item Value Reference Range Interpretation Comments G-value Rapid (test code = G-value 12.7 5.0-11.6 Rapid) [facility] HospitalAmlohdyBJSYHPDVJR6869-30-68 10:50:01 Test Item Value Reference Range Interpretation Comments Max Amplitude Rapid (test code = Max 72 mm 52-71 Amplitude Rapid) [facility] HospitalJfaxmceVUXPBCYTMM8175-22-68 10:50:01 Test Item Value Reference Range Interpretation Comments Estimated % Lysis Rapid 0.1 See_Comment [Au tomated message] The (test code = Estimated syste m which generated % Lysis Rapid) this result t ransmitted reference range : <=7.5. The reference r boubacar was not used to int erpret this result as normal/abnormal . [facility] HospitalEugbfjiJJKIOMIZRF9936-65-64 10:50:01 Test Item Value Reference Range Interpretation Comments Platelet (test code = Platelet) 367 133-450 [facility] HospitalTqimsieNNNXSUFXBY8777-50-26 10:50:01 Test Item Value Reference Range Interpretation Comments MPV (test code = MPV) 7.8 7.4-10.4 [facility] HospitalUxzbrniFUYKZFKRGQ6422-53-45 10:50:01 Test Item Value Reference Range Interpretation Comments MCH (test code = MCH) 27.4 pg 27.0-31.0 [facility] HospitalTnjmdrqCKPCIVYUBL8911-74-51 10:50:01 Test Item Value Reference Range Interpretation Comments MCV (test code = MCV) 80.7 80.0-94.0 [facility] HospitalYlfkjxeABOXTLXQDP0241-33-02 10:50:01 Test Item Value Reference Range Interpretation Comments MCHC (test code = MCHC) 34.0 32.0-36.0 [facility] HospitalYrvlhnuPTIYJVZZNB7413-31-13 10:50:01 Test Item Value Reference Range Interpretation Comments RDW (test code = RDW) 18.9 11.5-14.5 [facility] HospitalApmsucxSSDHFYCILW3737-48-42 10:50:01 Test Item Value Reference Range Interpretation Comments Hct (test code = Hct) 43.3 42.0-54.0 [facility] HospitalStunquiMJDFEEGXAC7978-33-43 10:50:01 Test Item Value Reference Range Interpretation Comments WBC (test code = WBC) 9.3 3.7-10.4 [facility] HospitalHtsfoyeLDCAZRZWFC0503-66-44 10:50:01 Test Item Value Reference Range Interpretation Comments Hgb (test code = Hgb) 14.7 14.0-18.0 [facility] HospitalFweqhhaCTHLGSWVCA3006-27-40 10:50:01 Test Item Value Reference Range Interpretation Comments RBC (test code = RBC) 5.36 4.70-6.10 [facility] HospitalFdpjmiqVNUKOFOKQY5626-52-35 10:50:01 Test Item Value Reference Range Interpretation Comments Eosinophils # (test code 0.2 See_Comment [A utomated message] The = Eosinophils #) system whic h generated this result tra nsmitted reference range : <=0.5. The reference r boubacar was not used to int erpret this result as normal/abnormal . [facility] HospitalYjwdkdgHKGISQORVQ6556-49-63 10:50:01 Test Item Value Reference Range Interpretation Comments Basophils # (test code 0.1 See_Comment [Aut omated message] The = Basophils #) system which generated this result tra nsmitted reference range : <=0.2. The reference r boubacar was not used to int erpret this result as normal/abnormal . [facility] HospitalUhaibehVWZZRLVANB8431-21-12 10:50:01 Test Item Value Reference Range Interpretation Comments Lymphocytes # (test code = Lymphocytes 1.8 1.0-5.5 #) [facility] HospitalYtgrblwMAJMWYYMSL1168-01-55 10:50:01 Test Item Value Reference Range Interpretation Comments Monocytes # (test code 0.9 See_Comment [Aut omated message] The = Monocytes #) system which generated this result tra nsmitted reference range : <=0.8. The reference r boubacar was not used to int erpret this result as normal/abnormal . [facility] HospitalDlzdwnbPUAPUHPFFJ5604-59-42 10:50:01 Test Item Value Reference Range Interpretation Comments Neutrophils # (test code = Neutrophils 6.3 1.5-8.1 #) [facility] HospitalRkdaatqRZILLCFYMM9293-83-97 10:50:01 Test Item Value Reference Range Interpretation Comments Eosinophils (test code = 2.0 See_Comment [A utomated message] The Eosinophils) system which ge nerated this result tra nsmitted reference range : <=4.0. The reference r boubacar was not used to int erpret this result as normal/abnormal . [facility] HospitalKjrtraxMVWSZHUGGJ7243-37-80 10:50:01 Test Item Value Reference Range Interpretation Comments Segs (test code = Segs) 67.4 45.0-75.0 [facility] HospitalLtrzlezWIVZYNBNBG4335-63-17 10:50:01 Test Item Value Reference Range Interpretation Comments Lymphocytes (test code = Lymphocytes) 19.9 20.0-40.0 [facility] HospitalXxnemnqEQUEWGHUQL9586-13-07 10:50:01 Test Item Value Reference Range Interpretation Comments Basophils (test code = 1.0 See_Comment [Aut omated message] The Basophils) system which ge nerated this result tra nsmitted reference range : <=1.0. The reference r boubacar was not used to int erpret this result as normal/abnormal . [facility] HospitalHhduxjgTTZCIUBTNG8474-81-04 10:50:01 Test Item Value Reference Range Interpretation Comments Monocytes (test code = Monocytes) 9.7 2.0-12.0 [facility]2018-11-08 10:50:01 Test Item Value Reference Range Interpretation Comments eGFR (test code = eGFR) 133 [facility]2018-11-08 10:50:01 Test Item Value Reference Range Interpretation Comments Calcium Lvl (test code = Calcium Lvl) 9.4 8.5-10.5 [facility]2018-11-08 10:50:01 Test Item Value Reference Range Interpretation Comments CO2 (test code = CO2) 28 24-32 [facility]2018-11-08 10:50:01 Test Item Value Reference Range Interpretation Comments BUN (test code = BUN) 14 7-22 [facility]2018-11-08 10:50:01 Test Item Value Reference Range Interpretation Comments Glucose Lvl (test code = Glucose Lvl) 89 70-99 [facility]2018-11-08 10:50:01 Test Item Value Reference Range Interpretation Comments Chloride Lvl (test code = Chloride Lvl) 104 95-109 [facility]2018-11-08 10:50:01 Test Item Value Reference Range Interpretation Comments Potassium Lvl (test code = Potassium 4.2 3.5-5.1 Lvl) [facility]2018-11-08 10:50:01 Test Item Value Reference Range Interpretation Comments Sodium Lvl (test code = Sodium Lvl) 137 135-145 [facility]2018-11-08 10:50:01 Test Item Value Reference Range Interpretation Comments Creatinine Lvl (test code = Creatinine 0.85 0.50-1.40 Lvl) [facility]2018-11-08 10:50:01 Test Item Value Reference Range Interpretation Comments AGAP (test code = AGAP) 9.2 10.0-20.0 [facility] HospitalPhnbxflCLVSDTXVDC0655-36-28 10:50:01 Test Item Value Reference Range Interpretation Comments ACT (TEG) Rapid (test code = ACT (TEG) 136 s 86-118 Rapid) [facility] HospitalHlupizrPSXYTAWSWR0445-80-72 10:50:01 Test Item Value Reference Range Interpretation Comments Split Point Rapid (test code = Split 0.6 min Point Rapid) [facility] HospitalDjigcabXKTRPLHMEI5463-56-61 10:50:01 Test Item Value Reference Range Interpretation Comments R-time Rapid (test code = R-time 0.9 min 0.4-0.7 Rapid) [address]11-08 10:50:01 Test Item Value Reference Range Interpretation Comments K-time Rapid (test code = K-time 1.4 min 0.6-2.3 Rapid) [facility] HospitalYqiffvpKFZTYXXFJA2204-89-64 10:50:01 Test Item Value Reference Range Interpretation Comments Angle Rapid (test code = Angle 71 degrees 64-80 Rapid) [facility] HospitalAtsispjHMIGQPUVNE6036-72-06 10:50:01 Test Item Value Reference Range Interpretation Comments G-value Rapid (test code = G-value 12.7 5.0-11.6 Rapid) [facility] HospitalPhrijcuIHCOBVDFRK0911-00-45 10:50:01 Test Item Value Reference Range Interpretation Comments Max Amplitude Rapid (test code = Max 72 mm 52-71 Amplitude Rapid) [facility] HospitalLfoipzkIVKOSGAXPY9721-31-21 10:50:01 Test Item Value Reference Range Interpretation Comments Estimated % Lysis Rapid 0.1 See_Comment [Au tomated message] The (test code = Estimated syste m which generated % Lysis Rapid) this result t ransmitted reference range : <=7.5. The reference r boubacar was not used to int erpret this result as normal/abnormal . [facility] HospitalFlgprugNEFOLCLXVQ8632-18-51 10:50:01 Test Item Value Reference Range Interpretation Comments Platelet (test code = Platelet) 367 133-450 [facility] HospitalGmtrqdrJQWUFOCIMY4188-23-75 10:50:01 Test Item Value Reference Range Interpretation Comments MPV (test code = MPV) 7.8 7.4-10.4 [facility] HospitalPvdxgsvABDLPGLXZD1264-65-22 10:50:01 Test Item Value Reference Range Interpretation Comments MCH (test code = MCH) 27.4 pg 27.0-31.0 [facility] HospitalHpmzknlZGAKPEUFYU3803-99-86 10:50:01 Test Item Value Reference Range Interpretation Comments MCV (test code = MCV) 80.7 80.0-94.0 [facility] HospitalObtiveiKZKSBAQFXI1687-80-32 10:50:01 Test Item Value Reference Range Interpretation Comments MCHC (test code = MCHC) 34.0 32.0-36.0 [facility] HospitalZgmbozrIRSPXZPZVO1471-22-55 10:50:01 Test Item Value Reference Range Interpretation Comments RDW (test code = RDW) 18.9 11.5-14.5 [facility] HospitalVlqdqujFLNPLRXFHN0342-36-96 10:50:01 Test Item Value Reference Range Interpretation Comments Hct (test code = Hct) 43.3 42.0-54.0 [facility] HospitalLtvrxuhBQJYLCQVIJ0207-07-63 10:50:01 Test Item Value Reference Range Interpretation Comments WBC (test code = WBC) 9.3 3.7-10.4 [facility] HospitalMchejlwPUKASFHQSC9971-95-35 10:50:01 Test Item Value Reference Range Interpretation Comments Hgb (test code = Hgb) 14.7 14.0-18.0 [facility] HospitalHnujvrjFONJKAOEOG0393-33-23 10:50:01 Test Item Value Reference Range Interpretation Comments RBC (test code = RBC) 5.36 4.70-6.10 [facility] HospitalVbbkaqeTZFQWIIWTG8917-86-81 10:50:01 Test Item Value Reference Range Interpretation Comments Eosinophils # (test code 0.2 See_Comment [A utomated message] The = Eosinophils #) system whic h generated this result tra nsmitted reference range : <=0.5. The reference r boubacar was not used to int erpret this result as normal/abnormal . [facility] HospitalGvdmvniYWJKITMDOE9900-97-70 10:50:01 Test Item Value Reference Range Interpretation Comments Basophils # (test code 0.1 See_Comment [Aut omated message] The = Basophils #) system which generated this result tra nsmitted reference range : <=0.2. The reference r boubacar was not used to int erpret this result as normal/abnormal . [facility] HospitalKaaeoakUQXECOHTJU7869-83-00 10:50:01 Test Item Value Reference Range Interpretation Comments Lymphocytes # (test code = Lymphocytes 1.8 1.0-5.5 #) [facility] HospitalSkrvyzwCTKIPBQXTP4728-71-09 10:50:01 Test Item Value Reference Range Interpretation Comments Monocytes # (test code 0.9 See_Comment [Aut omated message] The = Monocytes #) system which generated this result tra nsmitted reference range : <=0.8. The reference r boubacar was not used to int erpret this result as normal/abnormal . [facility] HospitalUfvpvlxBRMPTRYRZD0914-89-01 10:50:01 Test Item Value Reference Range Interpretation Comments Neutrophils # (test code = Neutrophils 6.3 1.5-8.1 #) [facility] HospitalYtqvgnyXFODVDQDIG3119-49-63 10:50:01 Test Item Value Reference Range Interpretation Comments Eosinophils (test code = 2.0 See_Comment [A utomated message] The Eosinophils) system which ge nerated this result tra nsmitted reference range : <=4.0. The reference r boubacar was not used to int erpret this result as normal/abnormal . [facility] HospitalCrjvqilTFOGVKNCYP9640-86-20 10:50:01 Test Item Value Reference Range Interpretation Comments Segs (test code = Segs) 67.4 45.0-75.0 [facility] HospitalJpqhurpXWECDOSHJT5088-46-22 10:50:01 Test Item Value Reference Range Interpretation Comments Lymphocytes (test code = Lymphocytes) 19.9 20.0-40.0 [facility] HospitalDppyjshWAHUZVATKP3684-62-99 10:50:01 Test Item Value Reference Range Interpretation Comments Basophils (test code = 1.0 See_Comment [Aut omated message] The Basophils) system which ge nerated this result tra nsmitted reference range : <=1.0. The reference r boubacar was not used to int erpret this result as normal/abnormal . [facility] HospitalGjbfptoPNWSGVLLCO6849-83-25 10:50:01 Test Item Value Reference Range Interpretation Comments Monocytes (test code = Monocytes) 9.7 2.0-12.0 [facility]2018-11-08 10:50:01 Test Item Value Reference Range Interpretation Comments eGFR (test code = eGFR) 133 [facility]2018-11-08 10:50:01 Test Item Value Reference Range Interpretation Comments Calcium Lvl (test code = Calcium Lvl) 9.4 8.5-10.5 [facility]2018-11-08 10:50:01 Test Item Value Reference Range Interpretation Comments CO2 (test code = CO2) 28 24-32 [facility]2018-11-08 10:50:01 Test Item Value Reference Range Interpretation Comments BUN (test code = BUN) 14 7-22 [facility]2018-11-08 10:50:01 Test Item Value Reference Range Interpretation Comments Glucose Lvl (test code = Glucose Lvl) 89 70-99 [facility]2018-11-08 10:50:01 Test Item Value Reference Range Interpretation Comments Chloride Lvl (test code = Chloride Lvl) 104 95-109 [facility]2018-11-08 10:50:01 Test Item Value Reference Range Interpretation Comments Potassium Lvl (test code = Potassium 4.2 3.5-5.1 Lvl) [facility]2018-11-08 10:50:01 Test Item Value Reference Range Interpretation Comments Sodium Lvl (test code = Sodium Lvl) 137 135-145 [facility]2018-11-08 10:50:01 Test Item Value Reference Range Interpretation Comments Creatinine Lvl (test code = Creatinine 0.85 0.50-1.40 Lvl) [facility]2018-11-08 10:50:01 Test Item Value Reference Range Interpretation Comments AGAP (test code = AGAP) 9.2 10.0-20.0 [facility] HospitalMkxwscbBMBJHMUQTV9258-81-70 10:50:01 Test Item Value Reference Range Interpretation Comments ACT (TEG) Rapid (test code = ACT (TEG) 136 s 86-118 Rapid) [facility] HospitalYnygqpnANMLZZYXCJ5571-96-01 10:50:01 Test Item Value Reference Range Interpretation Comments Split Point Rapid (test code = Split 0.6 min Point Rapid) [facility] HospitalDkupeeiPGXQDQHSYQ7627-19-07 10:50:01 Test Item Value Reference Range Interpretation Comments R-time Rapid (test code = R-time 0.9 min 0.4-0.7 Rapid) [place] [address]-11-08 10:50:01 Test Item Value Reference Range Interpretation Comments K-time Rapid (test code = K-time 1.4 min 0.6-2.3 Rapid) [facility] HospitalEnzsdiqCSGNKWAVGY1597-66-93 10:50:01 Test Item Value Reference Range Interpretation Comments Angle Rapid (test code = Angle 71 degrees 64-80 Rapid) [facility] HospitalQuhjdvqKGLKQANXJG5819-57-39 10:50:01 Test Item Value Reference Range Interpretation Comments G-value Rapid (test code = G-value 12.7 5.0-11.6 Rapid) [facility] HospitalRwsppdaXTAITLQAUA6528-68-24 10:50:01 Test Item Value Reference Range Interpretation Comments Max Amplitude Rapid (test code = Max 72 mm 52-71 Amplitude Rapid) [facility] HospitalTwfclyrPCQYXKMZGN1615-51-81 10:50:01 Test Item Value Reference Range Interpretation Comments Estimated % Lysis Rapid 0.1 See_Comment [Au tomated message] The (test code = Estimated syste m which generated % Lysis Rapid) this result t ransmitted reference range : <=7.5. The reference r boubacar was not used to int erpret this result as normal/abnormal . [facility] HospitalYptnukaHVFPRCTCRF7138-47-47 10:50:01 Test Item Value Reference Range Interpretation Comments Platelet (test code = Platelet) 367 133-450 [facility] HospitalQcscffrCJOYQCMTEK1026-81-66 10:50:01 Test Item Value Reference Range Interpretation Comments MPV (test code = MPV) 7.8 7.4-10.4 [facility] HospitalYjvhkhkTTIJZMTAUB7507-54-18 10:50:01 Test Item Value Reference Range Interpretation Comments MCH (test code = MCH) 27.4 pg 27.0-31.0 [facility] HospitalIlbaiujBRLYOFJDPR7191-10-87 10:50:01 Test Item Value Reference Range Interpretation Comments MCV (test code = MCV) 80.7 80.0-94.0 [facility] HospitalCayzpaiPYQLMPFBYS4745-57-56 10:50:01 Test Item Value Reference Range Interpretation Comments MCHC (test code = MCHC) 34.0 32.0-36.0 [facility] HospitalIdnzuzaDKEPETXIXA3076-53-83 10:50:01 Test Item Value Reference Range Interpretation Comments RDW (test code = RDW) 18.9 11.5-14.5 [facility] HospitalNzplulfBZQVMHLZGX5378-19-24 10:50:01 Test Item Value Reference Range Interpretation Comments Hct (test code = Hct) 43.3 42.0-54.0 [facility] HospitalTenqwhhEHNHYGWLVM3939-46-11 10:50:01 Test Item Value Reference Range Interpretation Comments WBC (test code = WBC) 9.3 3.7-10.4 [facility] HospitalMroibxpAMUXDJPSMA8895-16-59 10:50:01 Test Item Value Reference Range Interpretation Comments Hgb (test code = Hgb) 14.7 14.0-18.0 [facility] HospitalOcvdwugSKYRDWGGHU4985-43-45 10:50:01 Test Item Value Reference Range Interpretation Comments RBC (test code = RBC) 5.36 4.70-6.10 [facility] HospitalVlnjwzzTLHCHEBEKB4497-45-66 10:50:01 Test Item Value Reference Range Interpretation Comments Eosinophils # (test code 0.2 See_Comment [A utomated message] The = Eosinophils #) system whic h generated this result tra nsmitted reference range : <=0.5. The reference r boubacar was not used to int erpret this result as normal/abnormal . [facility] HospitalEauwxsjTBRPNEZYWN8604-97-27 10:50:01 Test Item Value Reference Range Interpretation Comments Basophils # (test code 0.1 See_Comment [Aut omated message] The = Basophils #) system which generated this result tra nsmitted reference range : <=0.2. The reference r boubacar was not used to int erpret this result as normal/abnormal . [facility] HospitalDkbcnlvEFSGWGXMKY8050-69-96 10:50:01 Test Item Value Reference Range Interpretation Comments Lymphocytes # (test code = Lymphocytes 1.8 1.0-5.5 #) [facility] HospitalBdhxclvOXPAERYYIY7837-74-35 10:50:01 Test Item Value Reference Range Interpretation Comments Monocytes # (test code 0.9 See_Comment [Aut omated message] The = Monocytes #) system which generated this result tra nsmitted reference range : <=0.8. The reference r boubacar was not used to int erpret this result as normal/abnormal . [facility] HospitalSmswiqtKNHVKRHVRW8543-30-50 10:50:01 Test Item Value Reference Range Interpretation Comments Neutrophils # (test code = Neutrophils 6.3 1.5-8.1 #) [facility] HospitalRpujfnwDYKMDBJFUA7661-37-03 10:50:01 Test Item Value Reference Range Interpretation Comments Eosinophils (test code = 2.0 See_Comment [A utomated message] The Eosinophils) system which ge nerated this result tra nsmitted reference range : <=4.0. The reference r boubacar was not used to int erpret this result as normal/abnormal . [facility] HospitalVrzuubjFPECBZHHFF2790-12-61 10:50:01 Test Item Value Reference Range Interpretation Comments Segs (test code = Segs) 67.4 45.0-75.0 [facility] HospitalOrcnscyKXUUDWVZXV9645-38-74 10:50:01 Test Item Value Reference Range Interpretation Comments Lymphocytes (test code = Lymphocytes) 19.9 20.0-40.0 [facility] HospitalIaiikaoDUZMRAZDMN5495-75-56 10:50:01 Test Item Value Reference Range Interpretation Comments Basophils (test code = 1.0 See_Comment [Aut omated message] The Basophils) system which ge nerated this result tra nsmitted reference range : <=1.0. The reference r boubacar was not used to int erpret this result as normal/abnormal . [facility] HospitalRloibmhHFIUZIPSTX4038-80-30 10:50:01 Test Item Value Reference Range Interpretation Comments Monocytes (test code = Monocytes) 9.7 2.0-12.0 [facility]2018-11-08 10:50:01 Test Item Value Reference Range Interpretation Comments eGFR (test code = eGFR) 133 [facility]2018-11-08 10:50:01 Test Item Value Reference Range Interpretation Comments Calcium Lvl (test code = Calcium Lvl) 9.4 8.5-10.5 [facility]2018-11-08 10:50:01 Test Item Value Reference Range Interpretation Comments CO2 (test code = CO2) 28 24-32 [facility]2018-11-08 10:50:01 Test Item Value Reference Range Interpretation Comments BUN (test code = BUN) 14 7-22 [facility]2018-11-08 10:50:01 Test Item Value Reference Range Interpretation Comments Glucose Lvl (test code = Glucose Lvl) 89 70-99 [facility]2018-11-08 10:50:01 Test Item Value Reference Range Interpretation Comments Chloride Lvl (test code = Chloride Lvl) 104 95-109 [facility]2018-11-08 10:50:01 Test Item Value Reference Range Interpretation Comments Potassium Lvl (test code = Potassium 4.2 3.5-5.1 Lvl) [facility]2018-11-08 10:50:01 Test Item Value Reference Range Interpretation Comments Sodium Lvl (test code = Sodium Lvl) 137 135-145 [facility]2018-11-08 10:50:01 Test Item Value Reference Range Interpretation Comments Creatinine Lvl (test code = Creatinine 0.85 0.50-1.40 Lvl) [facility]2018-11-08 10:50:01 Test Item Value Reference Range Interpretation Comments AGAP (test code = AGAP) 9.2 10.0-20.0 [facility] HospitalLyvmvfhAMPXENLDSC7474-98-92 10:50:01 Test Item Value Reference Range Interpretation Comments ACT (TEG) Rapid (test code = ACT (TEG) 136 s 86-118 Rapid) [facility] HospitalHxqeytsYKANIXQSWX4342-97-58 10:50:01 Test Item Value Reference Range Interpretation Comments Split Point Rapid (test code = Split 0.6 min Point Rapid) [facility] HospitalEtdcpcyLABRREYHOA5122-71-73 10:50:01 Test Item Value Reference Range Interpretation Comments R-time Rapid (test code = R-time 0.9 min 0.4-0.7 Rapid) [facility] HospitalSdbsvutVMOHNIHADW9013-59-09 10:50:01 Test Item Value Reference Range Interpretation Comments K-time Rapid (test code = K-time 1.4 min 0.6-2.3 Rapid) [facility] HospitalBklzkfbVLGGHHFHCD2797-16-15 10:50:01 Test Item Value Reference Range Interpretation Comments Angle Rapid (test code = Angle 71 degrees 64-80 Rapid) [facility] HospitalRvhyaktNWTYMVZKOO8269-28-98 10:50:01 Test Item Value Reference Range Interpretation Comments G-value Rapid (test code = G-value 12.7 5.0-11.6 Rapid) [facility] HospitalTrtgwppTFHMGTDDQU1700-71-19 10:50:01 Test Item Value Reference Range Interpretation Comments Max Amplitude Rapid (test code = Max 72 mm 52-71 Amplitude Rapid) [facility] HospitalCmmucjiKIFCGYHDKG4762-52-72 10:50:01 Test Item Value Reference Range Interpretation Comments Estimated % Lysis Rapid 0.1 See_Comment [Au tomated message] The (test code = Estimated syste m which generated % Lysis Rapid) this result t ransmitted reference range : <=7.5. The reference r boubacar was not used to int erpret this result as normal/abnormal . [facility] HospitalIbbhgzhVMYWRYFPVN5057-83-88 10:50:01 Test Item Value Reference Range Interpretation Comments Platelet (test code = Platelet) 367 133-450 [facility] HospitalDpgzssfXJXDFBFPNP3149-30-34 10:50:01 Test Item Value Reference Range Interpretation Comments MPV (test code = MPV) 7.8 7.4-10.4 [facility] HospitalNcfqlkjSQBJHEELQK4508-71-47 10:50:01 Test Item Value Reference Range Interpretation Comments MCH (test code = MCH) 27.4 pg 27.0-31.0 [facility] HospitalEsuzqtnDFDBQNRERO4320-90-75 10:50:01 Test Item Value Reference Range Interpretation Comments MCV (test code = MCV) 80.7 80.0-94.0 [facility] HospitalAnpyhmiECHPDXKFTF2308-78-97 10:50:01 Test Item Value Reference Range Interpretation Comments MCHC (test code = MCHC) 34.0 32.0-36.0 [facility] HospitalYthyhynYCEWMEANCH6933-15-54 10:50:01 Test Item Value Reference Range Interpretation Comments RDW (test code = RDW) 18.9 11.5-14.5 [facility] HospitalOjcayvrZRTXVYNGMH7192-39-68 10:50:01 Test Item Value Reference Range Interpretation Comments Hct (test code = Hct) 43.3 42.0-54.0 [facility] HospitalFlxyifiORJFCTZZAG8878-19-51 10:50:01 Test Item Value Reference Range Interpretation Comments WBC (test code = WBC) 9.3 3.7-10.4 [facility] HospitalGqryzrmLIVWSQYAXI0740-27-84 10:50:01 Test Item Value Reference Range Interpretation Comments Hgb (test code = Hgb) 14.7 14.0-18.0 [facility] HospitalDgkmhdkMFCDPPUXNC5959-87-82 10:50:01 Test Item Value Reference Range Interpretation Comments RBC (test code = RBC) 5.36 4.70-6.10 [facility] HospitalZzsvwgqOFTUQJHRMF8934-95-27 10:50:01 Test Item Value Reference Range Interpretation Comments Eosinophils # (test code 0.2 See_Comment [A utomated message] The = Eosinophils #) system whic h generated this result tra nsmitted reference range : <=0.5. The reference r boubacar was not used to int erpret this result as normal/abnormal . [facility] HospitalBoxlxunIUBZPJMWUZ8893-97-95 10:50:01 Test Item Value Reference Range Interpretation Comments Basophils # (test code 0.1 See_Comment [Aut omated message] The = Basophils #) system which generated this result tra nsmitted reference range : <=0.2. The reference r boubacar was not used to int erpret this result as normal/abnormal . [facility] HospitalEuptmqgAEWKLFVXJP9773-36-58 10:50:01 Test Item Value Reference Range Interpretation Comments Lymphocytes # (test code = Lymphocytes 1.8 1.0-5.5 #) [facility] HospitalCcqtkukKOQIQRAJNQ5734-64-13 10:50:01 Test Item Value Reference Range Interpretation Comments Monocytes # (test code 0.9 See_Comment [Aut omated message] The = Monocytes #) system which generated this result tra nsmitted reference range : <=0.8. The reference r boubacar was not used to int erpret this result as normal/abnormal . [facility] HospitalOokqckwPBJHUOJFHC1281-16-33 10:50:01 Test Item Value Reference Range Interpretation Comments Neutrophils # (test code = Neutrophils 6.3 1.5-8.1 #) [facility] HospitalGqlyacsGYGOYEDJRZ2888-79-20 10:50:01 Test Item Value Reference Range Interpretation Comments Eosinophils (test code = 2.0 See_Comment [A utomated message] The Eosinophils) system which ge nerated this result tra nsmitted reference range : <=4.0. The reference r boubacar was not used to int erpret this result as normal/abnormal . [facility] HospitalNtriovfDCPJEKYSMX8804-28-92 10:50:01 Test Item Value Reference Range Interpretation Comments Segs (test code = Segs) 67.4 45.0-75.0 [facility]IgvlwdtUGIIFSCGGW4053-55-54 10:50:01 Test Item Value Reference Range Interpretation Comments Lymphocytes (test code = Lymphocytes) 19.9 20.0-40.0 [facility] HospitalFrxowiyWRNBTJXSIW6622-32-07 10:50:01 Test Item Value Reference Range Interpretation Comments Basophils (test code = 1.0 See_Comment [Aut omated message] The Basophils) system which ge nerated this result tra nsmitted reference range : <=1.0. The reference r boubacar was not used to int erpret this result as normal/abnormal . [facility] HospitalDmutvliQJGGVMZOGS1296-35-76 10:50:01 Test Item Value Reference Range Interpretation Comments Monocytes (test code = Monocytes) 9.7 2.0-12.0 [facility]2018-05-08 05:42:00 Test Item Value Reference Range Interpretation Comments B/C Ratio (test code = B/C Ratio) 17 1 6-25 [facility]2018-05-08 05:42:00 Test Item Value Reference Range Interpretation Comments Globulin (test code = Globulin) 4.3 2.7-4.2 [facility]2018-05-08 05:42:00 Test Item Value Reference Range Interpretation Comments A/G Ratio (test code = A/G Ratio) 0.7 1 0.7-1.6 [facility]2018-05-08 05:42:00 Test Item Value Reference Range Interpretation Comments AGAP (test code = AGAP) 14.4 10.0-20.0 [facility]2018-05-08 05:42:00 Test Item Value Reference Range Interpretation Comments eGFR (test code = eGFR) 113 [facility]2018-05-08 05:42:00 Test Item Value Reference Range Interpretation Comments Alk Phos (test code = Alk Phos) 76 39-136 [facility]2018-05-08 05:42:00 Test Item Value Reference Range Interpretation Comments ALT (test code = ALT) 35 See_Comment [Auto mated message] The system which ge nerated this result transmit lester reference range : <=65. The reference range was not used to interpr et this result as dany l/abnormal. [facility]2018-05-08 05:42:00 Test Item Value Reference Range Interpretation Comments Albumin Lvl (test code = Albumin Lvl) 2.8 3.5-5.0 [facility]2018-05-08 05:42:00 Test Item Value Reference Range Interpretation Comments Total Protein (test code = Total 7.1 6.4-8.4 Protein) [facility]2018-05-08 05:42:00 Test Item Value Reference Range Interpretation Comments Calcium Lvl (test code = Calcium Lvl) 8.7 8.5-10.5 [facility]2018-05-08 05:42:00 Test Item Value Reference Range Interpretation Comments AST (test code = AST) 18 See_Comment [Auto mated message] The system which ge nerated this result transmit lester reference range : <=37. The reference range was not used to interpr et this result as dany l/abnormal. [facility]2018-05-08 05:42:00 Test Item Value Reference Range Interpretation Comments Bili Total (test code = Bili Total) 0.3 0.2-1.3 [facility]2018-05-08 05:42:00 Test Item Value Reference Range Interpretation Comments Potassium Lvl (test code = Potassium 4.4 3.5-5.1 Lvl) [facility]2018-05-08 05:42:00 Test Item Value Reference Range Interpretation Comments Chloride Lvl (test code = Chloride Lvl) 109 95-109 [place] 743208-05-08 05:42:00 Test Item Value Reference Range Interpretation Comments CO2 (test code = CO2) 23 24-32 [facility]2018-05-08 05:42:00 Test Item Value Reference Range Interpretation Comments Glucose Lvl (test code = Glucose Lvl) 114 70-99 [facility]2018-05-08 05:42:00 Test Item Value Reference Range Interpretation Comments Creatinine Lvl (test code = Creatinine 1.01 0.50-1.40 Lvl) [facility]2018-05-08 05:42:00 Test Item Value Reference Range Interpretation Comments BUN (test code = BUN) 17 7-22 [facility]2018-05-08 05:42:00 Test Item Value Reference Range Interpretation Comments Sodium Lvl (test code = Sodium Lvl) 142 135-145 [facility] HospitalLjiamioMZHRZYKSKM9305-53-92 05:42:00 Test Item Value Reference Range Interpretation Comments Basophils (test code = 0.6 See_Comment [Aut omated message] The Basophils) system which ge nerated this result tra nsmitted reference range : <=1.0. The reference r boubacar was not used to int erpret this result as normal/abnormal . [facility] HospitalUivljheBVHPSQYJFG0161-58-59 05:42:00 Test Item Value Reference Range Interpretation Comments Segs-Bands # (test code = Segs-Bands #) 4.8 1.5-8.1 [facility] HospitalMdanbogEVVLOIUTQB6424-09-17 05:42:00 Test Item Value Reference Range Interpretation Comments Monocytes # (test code 0.7 See_Comment [Aut omated message] The = Monocytes #) system which generated this result tra nsmitted reference range : <=0.8. The reference r boubacar was not used to int erpret this result as normal/abnormal . [facility] HospitalNbdvieqTASBNTBYJG3795-81-27 05:42:00 Test Item Value Reference Range Interpretation Comments Lymphocytes # (test code = Lymphocytes 1.9 1.0-5.5 #) [facility] HospitalOswvjdhWEOPETDMUP2740-42-53 05:42:00 Test Item Value Reference Range Interpretation Comments Monocytes (test code = Monocytes) 9.4 2.0-12.0 [facility] HospitalOvurhqiTIMPTMLGOI5086-04-59 05:42:00 Test Item Value Reference Range Interpretation Comments Eosinophils # (test code 0.2 See_Comment [A utomated message] The = Eosinophils #) system whic h generated this result tra nsmitted reference range : <=0.5. The reference r boubacar was not used to int erpret this result as normal/abnormal . [facility] HospitalOtpfufvEWEJWKTDXH5044-27-00 05:42:00 Test Item Value Reference Range Interpretation Comments Eosinophils (test code = 2.9 See_Comment [A utomated message] The Eosinophils) system which ge nerated this result tra nsmitted reference range : <=4.0. The reference r boubacar was not used to int erpret this result as normal/abnormal . [facility] HospitalHhpahqiBUFSIVSTSZ4239-28-54 05:42:00 Test Item Value Reference Range Interpretation Comments Segs (test code = Segs) 62.2 45.0-75.0 [facility] HospitalQcdbyneYTIXJYZCCF9217-82-70 05:42:00 Test Item Value Reference Range Interpretation Comments Lymphocytes (test code = Lymphocytes) 24.9 20.0-40.0 [facility] HospitalMmgbpokMWRQMMHTUQ3187-17-93 05:42:00 Test Item Value Reference Range Interpretation Comments MCH (test code = MCH) 27.5 pg 27.0-31.0 [facility] HospitalEcjcvojXTLSVUOYMV2561-54-04 05:42:00 Test Item Value Reference Range Interpretation Comments MCV (test code = MCV) 85.3 80.0-94.0 [facility] HospitalDrzjwxuOTMYAPMMEI7925-17-00 05:42:00 Test Item Value Reference Range Interpretation Comments Hct (test code = Hct) 43.9 42.0-54.0 [facility] HospitalAtpjivaWOMFJKUTDO7530-97-07 05:42:00 Test Item Value Reference Range Interpretation Comments Hgb (test code = Hgb) 14.2 14.0-18.0 [facility] HospitalCqesyxeGLGCFCATWW6036-08-27 05:42:00 Test Item Value Reference Range Interpretation Comments WBC (test code = WBC) 7.7 3.7-10.4 [facility] HospitalUaizyjjSQZHTFDBAQ1716-02-00 05:42:00 Test Item Value Reference Range Interpretation Comments RBC (test code = RBC) 5.15 4.70-6.10 [facility] HospitalMogeixcLMSJJKFYLL4793-68-21 05:42:00 Test Item Value Reference Range Interpretation Comments MPV (test code = MPV) 8.4 7.4-10.4 [facility] HospitalFiafwudLFWYQPNNUE0387-51-57 05:42:00 Test Item Value Reference Range Interpretation Comments MCHC (test code = MCHC) 32.3 32.0-36.0 [facility] HospitalQfqkvtkVOCDDKPGKM8754-63-25 05:42:00 Test Item Value Reference Range Interpretation Comments RDW (test code = RDW) 17.3 11.5-14.5 [facility] HospitalKabadvnPQFOYXHGEP3940-60-58 05:42:00 Test Item Value Reference Range Interpretation Comments Platelet (test code = Platelet) 317 133-450 [facility]2018-05-08 05:42:00 Test Item Value Reference Range Interpretation Comments B/C Ratio (test code = B/C Ratio) 17 1 6-25 [facility]2018-05-08 05:42:00 Test Item Value Reference Range Interpretation Comments Globulin (test code = Globulin) 4.3 2.7-4.2 [facility]2018-05-08 05:42:00 Test Item Value Reference Range Interpretation Comments A/G Ratio (test code = A/G Ratio) 0.7 1 0.7-1.6 [facility]2018-05-08 05:42:00 Test Item Value Reference Range Interpretation Comments AGAP (test code = AGAP) 14.4 10.0-20.0 [facility]2018-05-08 05:42:00 Test Item Value Reference Range Interpretation Comments eGFR (test code = eGFR) 113 [facility]2018-05-08 05:42:00 Test Item Value Reference Range Interpretation Comments Alk Phos (test code = Alk Phos) 76 39-136 [facility]2018-05-08 05:42:00 Test Item Value Reference Range Interpretation Comments ALT (test code = ALT) 35 See_Comment [Auto mated message] The system which ge nerated this result transmit lester reference range : <=65. The reference range was not used to interpr et this result as dany l/abnormal. [facility]2018-05-08 05:42:00 Test Item Value Reference Range Interpretation Comments Albumin Lvl (test code = Albumin Lvl) 2.8 3.5-5.0 [facility]2018-05-08 05:42:00 Test Item Value Reference Range Interpretation Comments Total Protein (test code = Total 7.1 6.4-8.4 Protein) [facility]2018-05-08 05:42:00 Test Item Value Reference Range Interpretation Comments Calcium Lvl (test code = Calcium Lvl) 8.7 8.5-10.5 [facility]2018-05-08 05:42:00 Test Item Value Reference Range Interpretation Comments AST (test code = AST) 18 See_Comment [Auto mated message] The system which ge nerated this result transmit lester reference range : <=37. The reference range was not used to interpr et this result as dany l/abnormal. [facility]2018-05-08 05:42:00 Test Item Value Reference Range Interpretation Comments Bili Total (test code = Bili Total) 0.3 0.2-1.3 [facility]2018-05-08 05:42:00 Test Item Value Reference Range Interpretation Comments Potassium Lvl (test code = Potassium 4.4 3.5-5.1 Lvl) [facility]2018-05-08 05:42:00 Test Item Value Reference Range Interpretation Comments Chloride Lvl (test code = Chloride Lvl) 109 95-109 [facility]2018-05-08 05:42:00 Test Item Value Reference Range Interpretation Comments CO2 (test code = CO2) 23 24-32 [facility]2018-05-08 05:42:00 Test Item Value Reference Range Interpretation Comments Glucose Lvl (test code = Glucose Lvl) 114 70-99 [facility]2018-05-08 05:42:00 Test Item Value Reference Range Interpretation Comments Creatinine Lvl (test code = Creatinine 1.01 0.50-1.40 Lvl) [facility]2018-05-08 05:42:00 Test Item Value Reference Range Interpretation Comments BUN (test code = BUN) 17 7-22 [facility]2018-05-08 05:42:00 Test Item Value Reference Range Interpretation Comments Sodium Lvl (test code = Sodium Lvl) 142 135-145 [facility] HospitalHwhhkvdGKCNDAEYJV7153-07-58 05:42:00 Test Item Value Reference Range Interpretation Comments Basophils (test code = 0.6 See_Comment [Aut omated message] The Basophils) system which ge nerated this result tra nsmitted reference range : <=1.0. The reference r boubacar was not used to int erpret this result as normal/abnormal . [facility] HospitalEuntizpHYBVOKYXZO0333-32-98 05:42:00 Test Item Value Reference Range Interpretation Comments Segs-Bands # (test code = Segs-Bands #) 4.8 1.5-8.1 [facility] HospitalGpnzivvWDOYJKIWNF3725-28-89 05:42:00 Test Item Value Reference Range Interpretation Comments Monocytes # (test code 0.7 See_Comment [Aut omated message] The = Monocytes #) system which generated this result tra nsmitted reference range : <=0.8. The reference r boubacar was not used to int erpret this result as normal/abnormal . [facility] HospitalNbmvarkBKJJCRLORL6726-20-52 05:42:00 Test Item Value Reference Range Interpretation Comments Lymphocytes # (test code = Lymphocytes 1.9 1.0-5.5 #) [facility] HospitalEtfbmicZFEROWBMTH8020-94-84 05:42:00 Test Item Value Reference Range Interpretation Comments Monocytes (test code = Monocytes) 9.4 2.0-12.0 [facility] HospitalGzwswxcKQTIVYEWUS6782-53-20 05:42:00 Test Item Value Reference Range Interpretation Comments Eosinophils # (test code 0.2 See_Comment [A utomated message] The = Eosinophils #) system whic h generated this result tra nsmitted reference range : <=0.5. The reference r boubacar was not used to int erpret this result as normal/abnormal . [facility] HospitalDohyxhfQEDBHCQOTV8113-71-96 05:42:00 Test Item Value Reference Range Interpretation Comments Eosinophils (test code = 2.9 See_Comment [A utomated message] The Eosinophils) system which ge nerated this result tra nsmitted reference range : <=4.0. The reference r boubacar was not used to int erpret this result as normal/abnormal . [facility] HospitalMlvpjalUYJDBQDUWS1563-24-55 05:42:00 Test Item Value Reference Range Interpretation Comments Segs (test code = Segs) 62.2 45.0-75.0 [facility] HospitalLjhblkiKASQWTVJOF1272-57-06 05:42:00 Test Item Value Reference Range Interpretation Comments Lymphocytes (test code = Lymphocytes) 24.9 20.0-40.0 [facility] HospitalTscalmdTUOJFIDETM8681-46-73 05:42:00 Test Item Value Reference Range Interpretation Comments MCH (test code = MCH) 27.5 pg 27.0-31.0 [facility] HospitalRtdctmaADXICIINHC1208-74-36 05:42:00 Test Item Value Reference Range Interpretation Comments MCV (test code = MCV) 85.3 80.0-94.0 [facility] HospitalFusgrorHTESMFOIZZ9773-79-18 05:42:00 Test Item Value Reference Range Interpretation Comments Hct (test code = Hct) 43.9 42.0-54.0 [facility] HospitalAkhgwybPPTYPBRUCL3032-55-06 05:42:00 Test Item Value Reference Range Interpretation Comments Hgb (test code = Hgb) 14.2 14.0-18.0 [facility] HospitalDvwerhvWCLNKUIXKS6949-90-33 05:42:00 Test Item Value Reference Range Interpretation Comments WBC (test code = WBC) 7.7 3.7-10.4 [facility] HospitalKimukyzTHDXHGCIZV0711-17-71 05:42:00 Test Item Value Reference Range Interpretation Comments RBC (test code = RBC) 5.15 4.70-6.10 [facility] HospitalXiujpruVZOZBXCNYX0821-77-88 05:42:00 Test Item Value Reference Range Interpretation Comments MPV (test code = MPV) 8.4 7.4-10.4 [facility] HospitalArzvkdkVSONYUVBUG3558-28-61 05:42:00 Test Item Value Reference Range Interpretation Comments MCHC (test code = MCHC) 32.3 32.0-36.0 [facility] HospitalPiirtwpBBWQEUFCDL5530-35-00 05:42:00 Test Item Value Reference Range Interpretation Comments RDW (test code = RDW) 17.3 11.5-14.5 [facility] HospitalVqfrthvCNCSLPIQAH4328-20-24 05:42:00 Test Item Value Reference Range Interpretation Comments Platelet (test code = Platelet) 317 067-450 [facility] CUSSK7811-54-56 05:42:00 Test Item Value Reference Range Interpretation Comments B/C Ratio (test code = B/C Ratio) 17 1 6-25 [facility] SZTMQ0284-17-80 05:42:00 Test Item Value Reference Range Interpretation Comments Globulin (test code = Globulin) 4.3 2.7-4.2 [facility] TEBZW5532-62-65 05:42:00 Test Item Value Reference Range Interpretation Comments A/G Ratio (test code = A/G Ratio) 0.7 1 0.7-1.6 [facility]2018-05-08 05:42:00 Test Item Value Reference Range Interpretation Comments AGAP (test code = AGAP) 14.4 10.0-20.0 [facility]2018-05-08 05:42:00 Test Item Value Reference Range Interpretation Comments eGFR (test code = eGFR) 113 [facility]2018-05-08 05:42:00 Test Item Value Reference Range Interpretation Comments Alk Phos (test code = Alk Phos) 76 39-136 [facility]2018-05-08 05:42:00 Test Item Value Reference Range Interpretation Comments ALT (test code = ALT) 35 See_Comment [Auto mated message] The system which ge nerated this result transmit lester reference range : <=65. The reference range was not used to interpr et this result as dany l/abnormal. [facility]2018-05-08 05:42:00 Test Item Value Reference Range Interpretation Comments Albumin Lvl (test code = Albumin Lvl) 2.8 3.5-5.0 [facility]2018-05-08 05:42:00 Test Item Value Reference Range Interpretation Comments Total Protein (test code = Total 7.1 6.4-8.4 Protein) [facility]2018-05-08 05:42:00 Test Item Value Reference Range Interpretation Comments Calcium Lvl (test code = Calcium Lvl) 8.7 8.5-10.5 [facility]2018-05-08 05:42:00 Test Item Value Reference Range Interpretation Comments AST (test code = AST) 18 See_Comment [Auto mated message] The system which ge nerated this result transmit lester reference range : <=37. The reference range was not used to interpr et this result as dany l/abnormal. [place] 743208-05-08 05:42:00 Test Item Value Reference Range Interpretation Comments Bili Total (test code = Bili Total) 0.3 0.2-1.3 [place] 743208-05-08 05:42:00 Test Item Value Reference Range Interpretation Comments Potassium Lvl (test code = Potassium 4.4 3.5-5.1 Lvl) [facility]2018-05-08 05:42:00 Test Item Value Reference Range Interpretation Comments Chloride Lvl (test code = Chloride Lvl) 109 95-109 [facility]2018-05-08 05:42:00 Test Item Value Reference Range Interpretation Comments CO2 (test code = CO2) 23 24-32 [facility]2018-05-08 05:42:00 Test Item Value Reference Range Interpretation Comments Glucose Lvl (test code = Glucose Lvl) 114 70-99 [facility]2018-05-08 05:42:00 Test Item Value Reference Range Interpretation Comments Creatinine Lvl (test code = Creatinine 1.01 0.50-1.40 Lvl) [facility]2018-05-08 05:42:00 Test Item Value Reference Range Interpretation Comments BUN (test code = BUN) 17 7-22 [facility]2018-05-08 05:42:00 Test Item Value Reference Range Interpretation Comments Sodium Lvl (test code = Sodium Lvl) 142 135-145 [facility] HospitalYnyyovlZHLYIYALSJ7039-24-11 05:42:00 Test Item Value Reference Range Interpretation Comments Basophils (test code = 0.6 See_Comment [Aut omated message] The Basophils) system which ge nerated this result tra nsmitted reference range : <=1.0. The reference r boubacar was not used to int erpret this result as normal/abnormal . [facility] HospitalOulrodkVOJDOYKHVH2107-86-68 05:42:00 Test Item Value Reference Range Interpretation Comments Segs-Bands # (test code = Segs-Bands #) 4.8 1.5-8.1 [facility] HospitalPtpgdzlPHEYKSFQOR9355-03-28 05:42:00 Test Item Value Reference Range Interpretation Comments Monocytes # (test code 0.7 See_Comment [Aut omated message] The = Monocytes #) system which generated this result tra nsmitted reference range : <=0.8. The reference r boubacar was not used to int erpret this result as normal/abnormal . [place] 996948-05-08 05:42:00 Test Item Value Reference Range Interpretation Comments Lymphocytes # (test code = Lymphocytes 1.9 1.0-5.5 #) [facility] HospitalSwfyeexPTYTWWETTM6440-47-62 05:42:00 Test Item Value Reference Range Interpretation Comments Monocytes (test code = Monocytes) 9.4 2.0-12.0 [facility] HospitalVkrhecuIJOUWWEWIL0054-11-07 05:42:00 Test Item Value Reference Range Interpretation Comments Eosinophils # (test code 0.2 See_Comment [A utomated message] The = Eosinophils #) system whic h generated this result tra nsmitted reference range : <=0.5. The reference r boubacar was not used to int erpret this result as normal/abnormal . [facility] HospitalZusgwadWAJRQRNLIE9547-07-36 05:42:00 Test Item Value Reference Range Interpretation Comments Eosinophils (test code = 2.9 See_Comment [A utomated message] The Eosinophils) system which ge nerated this result tra nsmitted reference range : <=4.0. The reference r boubacar was not used to int erpret this result as normal/abnormal . [facility] HospitalJlbvrafNXKIXEXLPM8279-83-24 05:42:00 Test Item Value Reference Range Interpretation Comments Segs (test code = Segs) 62.2 45.0-75.0 [facility] HospitalTboaitoQBREDZJEAU5068-44-21 05:42:00 Test Item Value Reference Range Interpretation Comments Lymphocytes (test code = Lymphocytes) 24.9 20.0-40.0 [facility] HospitalQgsygzfFHGZWSQRNF4673-09-48 05:42:00 Test Item Value Reference Range Interpretation Comments MCH (test code = MCH) 27.5 pg 27.0-31.0 [facility] HospitalXnhzelpJHIQAVEUWM8488-58-53 05:42:00 Test Item Value Reference Range Interpretation Comments MCV (test code = MCV) 85.3 80.0-94.0 [facility] HospitalRntusnpDJPKPHIKZQ5616-60-58 05:42:00 Test Item Value Reference Range Interpretation Comments Hct (test code = Hct) 43.9 42.0-54.0 [facility] HospitalZxdreajBBKLWBJYDN1270-18-97 05:42:00 Test Item Value Reference Range Interpretation Comments Hgb (test code = Hgb) 14.2 14.0-18.0 [facility] HospitalNxboxnsZRWOZMNYBS3771-46-05 05:42:00 Test Item Value Reference Range Interpretation Comments WBC (test code = WBC) 7.7 3.7-10.4 [facility] HospitalVtdavgfWXXCSRFESA1321-77-57 05:42:00 Test Item Value Reference Range Interpretation Comments RBC (test code = RBC) 5.15 4.70-6.10 [facility] HospitalGpffujaOIUOGXYLFY7076-89-02 05:42:00 Test Item Value Reference Range Interpretation Comments MPV (test code = MPV) 8.4 7.4-10.4 [facility] HospitalNrrytfgWJNRZGYKSE6191-84-08 05:42:00 Test Item Value Reference Range Interpretation Comments MCHC (test code = MCHC) 32.3 32.0-36.0 [facility] HospitalQdxbiwnYXBJJZIZIQ1277-21-52 05:42:00 Test Item Value Reference Range Interpretation Comments RDW (test code = RDW) 17.3 11.5-14.5 [facility] HospitalTlofktzYTSZBSKNTF6795-96-87 05:42:00 Test Item Value Reference Range Interpretation Comments Platelet (test code = Platelet) 317 133-450 [facility]2018-05-08 05:42:00 Test Item Value Reference Range Interpretation Comments B/C Ratio (test code = B/C Ratio) 17 1 6-25 [facility]2018-05-08 05:42:00 Test Item Value Reference Range Interpretation Comments Globulin (test code = Globulin) 4.3 2.7-4.2 [facility]2018-05-08 05:42:00 Test Item Value Reference Range Interpretation Comments A/G Ratio (test code = A/G Ratio) 0.7 1 0.7-1.6 [facility]2018-05-08 05:42:00 Test Item Value Reference Range Interpretation Comments AGAP (test code = AGAP) 14.4 10.0-20.0 [facility]2018-05-08 05:42:00 Test Item Value Reference Range Interpretation Comments eGFR (test code = eGFR) 113 [facility]2018-05-08 05:42:00 Test Item Value Reference Range Interpretation Comments Alk Phos (test code = Alk Phos) 76 39-136 [facility]2018-05-08 05:42:00 Test Item Value Reference Range Interpretation Comments ALT (test code = ALT) 35 See_Comment [Auto mated message] The system which ge nerated this result transmit lester reference range : <=65. The reference range was not used to interpr et this result as dany l/abnormal. [facility]2018-05-08 05:42:00 Test Item Value Reference Range Interpretation Comments Albumin Lvl (test code = Albumin Lvl) 2.8 3.5-5.0 [facility]2018-05-08 05:42:00 Test Item Value Reference Range Interpretation Comments Total Protein (test code = Total 7.1 6.4-8.4 Protein) [facility]2018-05-08 05:42:00 Test Item Value Reference Range Interpretation Comments Calcium Lvl (test code = Calcium Lvl) 8.7 8.5-10.5 [place] 743208-05-08 05:42:00 Test Item Value Reference Range Interpretation Comments AST (test code = AST) 18 See_Comment [Auto mated message] The system which ge nerated this result transmit lester reference range : <=37. The reference range was not used to interpr et this result as dany l/abnormal. [facility]2018-05-08 05:42:00 Test Item Value Reference Range Interpretation Comments Bili Total (test code = Bili Total) 0.3 0.2-1.3 [place] 743208-05-08 05:42:00 Test Item Value Reference Range Interpretation Comments Potassium Lvl (test code = Potassium 4.4 3.5-5.1 Lvl) [facility] [facility]2018-05-08 05:42:00 Test Item Value Reference Range Interpretation Comments Chloride Lvl (test code = Chloride Lvl) 109 95-109 [facility]2018-05-08 05:42:00 Test Item Value Reference Range Interpretation Comments CO2 (test code = CO2) 23 24-32 [place] 743208-05-08 05:42:00 Test Item Value Reference Range Interpretation Comments Glucose Lvl (test code = Glucose Lvl) 114 70-99 [place] 743208-05-08 05:42:00 Test Item Value Reference Range Interpretation Comments Creatinine Lvl (test code = Creatinine 1.01 0.50-1.40 Lvl) [facility]2018-05-08 05:42:00 Test Item Value Reference Range Interpretation Comments BUN (test code = BUN) 17 7-22 [facility]2018-05-08 05:42:00 Test Item Value Reference Range Interpretation Comments Sodium Lvl (test code = Sodium Lvl) 142 135-145 [facility]YmgiosnEYOVWNPGIN6431-92-55 05:42:00 Test Item Value Reference Range Interpretation Comments Basophils (test code = 0.6 See_Comment [Aut omated message] The Basophils) system which ge nerated this result tra nsmitted reference range : <=1.0. The reference r boubacar was not used to int erpret this result as normal/abnormal . [facility] HospitalNvwfzkcYCLTULIGPV9930-88-80 05:42:00 Test Item Value Reference Range Interpretation Comments Segs-Bands # (test code = Segs-Bands #) 4.8 1.5-8.1 [facility] HospitalUpkjijqNUSTSUYHAF9581-84-24 05:42:00 Test Item Value Reference Range Interpretation Comments Monocytes # (test code 0.7 See_Comment [Aut omated message] The = Monocytes #) system which generated this result tra nsmitted reference range : <=0.8. The reference r boubacar was not used to int erpret this result as normal/abnormal . [facility] HospitalSdprbgoXGKODMITTQ4395-21-79 05:42:00 Test Item Value Reference Range Interpretation Comments Lymphocytes # (test code = Lymphocytes 1.9 1.0-5.5 #) [facility] HospitalVmtjdbdCNKNTIEYEZ3359-25-36 05:42:00 Test Item Value Reference Range Interpretation Comments Monocytes (test code = Monocytes) 9.4 2.0-12.0 [facility] HospitalSpsadrnTQBKKXCHFQ3506-55-35 05:42:00 Test Item Value Reference Range Interpretation Comments Eosinophils # (test code 0.2 See_Comment [A utomated message] The = Eosinophils #) system wh h generated this result tra nsmitted reference range : <=0.5. The reference r boubacar was not used to int erpret this result as normal/abnormal . [facility] HospitalJbfvxlxDTDJCMXFJG3702-05-45 05:42:00 Test Item Value Reference Range Interpretation Comments Eosinophils (test code = 2.9 See_Comment [A utomated message] The Eosinophils) system which ge nerated this result tra nsmitted reference range : <=4.0. The reference r boubacar was not used to int erpret this result as normal/abnormal . [facility] HospitalOjovngfVBTVYCYYZH3814-85-98 05:42:00 Test Item Value Reference Range Interpretation Comments Segs (test code = Segs) 62.2 45.0-75.0 [facility]YRDCVPJSI5537-[facility]-77 05:42:00 Test Item Value Reference Range Interpretation Comments Lymphocytes (test code = Lymphocytes) 24.9 20.0-40.0 [facility]TvittrzFLRFLIDXKJ9427-96-03 05:42:00 Test Item Value Reference Range Interpretation Comments MCH (test code = MCH) 27.5 pg 27.0-31.0 [facility] HospitalWivmofwFYNYQHZERE7865-52-92 05:42:00 Test Item Value Reference Range Interpretation Comments MCV (test code = MCV) 85.3 80.0-94.0 [facility]NbexxrpBLEDARUVFK1744-56-61 05:42:00 Test Item Value Reference Range Interpretation Comments Hct (test code = Hct) 43.9 42.0-54.0 [facility] HospitalSvhwezjZJCVAGMZTH2176-27-90 05:42:00 Test Item Value Reference Range Interpretation Comments Hgb (test code = Hgb) 14.2 14.0-18.0 [facility] HospitalZtyvvtoROBVVRFHWP5771-16-68 05:42:00 Test Item Value Reference Range Interpretation Comments WBC (test code = WBC) 7.7 3.7-10.4 [facility]QqrrftxUJIFIDHWKO9899-78-91 05:42:00 Test Item Value Reference Range Interpretation Comments RBC (test code = RBC) 5.15 4.70-6.10 [facility]NfntxylGGOHKHFEHW3681-13-04 05:42:00 Test Item Value Reference Range Interpretation Comments MPV (test code = MPV) 8.4 7.4-10.4 [facility] HospitalXbdyewpQSWNZOZOKW4215-39-67 05:42:00 Test Item Value Reference Range Interpretation Comments MCHC (test code = MCHC) 32.3 32.0-36.0 [facility] HospitalWhliclwBXZNGPBBBK7241-21-86 05:42:00 Test Item Value Reference Range Interpretation Comments RDW (test code = RDW) 17.3 11.5-14.5 [facility]OwgshpsQTTWNTFWGF0971-19-90 05:42:00 Test Item Value Reference Range Interpretation Comments Platelet (test code = Platelet) 317 059-450 [facility] EWNVU1471-27-95 05:42:00 Test Item Value Reference Range Interpretation Comments B/C Ratio (test code = B/C Ratio) 17 1 6-25 [facility]2018-05-08 05:42:00 Test Item Value Reference Range Interpretation Comments Globulin (test code = Globulin) 4.3 2.7-4.2 [facility]2018-05-08 05:42:00 Test Item Value Reference Range Interpretation Comments A/G Ratio (test code = A/G Ratio) 0.7 1 0.7-1.6 [facility]2018-05-08 05:42:00 Test Item Value Reference Range Interpretation Comments AGAP (test code = AGAP) 14.4 10.0-20.0 [place] 743208-05-08 05:42:00 Test Item Value Reference Range Interpretation Comments eGFR (test code = eGFR) 113 [facility]2018-05-08 05:42:00 Test Item Value Reference Range Interpretation Comments Alk Phos (test code = Alk Phos) 76 39-136 [facility]2018-05-08 05:42:00 Test Item Value Reference Range Interpretation Comments ALT (test code = ALT) 35 See_Comment [Auto mated message] The system which ge nerated this result transmit lester reference range : <=65. The reference range was not used to interpr et this result as dany l/abnormal. [facility]2018-05-08 05:42:00 Test Item Value Reference Range Interpretation Comments Albumin Lvl (test code = Albumin Lvl) 2.8 3.5-5.0 [facility]2018-05-08 05:42:00 Test Item Value Reference Range Interpretation Comments Total Protein (test code = Total 7.1 6.4-8.4 Protein) [facility]2018-05-08 05:42:00 Test Item Value Reference Range Interpretation Comments Calcium Lvl (test code = Calcium Lvl) 8.7 8.5-10.5 [facility]2018-05-08 05:42:00 Test Item Value Reference Range Interpretation Comments AST (test code = AST) 18 See_Comment [Auto mated message] The system which ge nerated this result transmit lester reference range : <=37. The reference range was not used to interpr et this result as dany l/abnormal. [facility]2018-05-08 05:42:00 Test Item Value Reference Range Interpretation Comments Bili Total (test code = Bili Total) 0.3 0.2-1.3 [facility]2018-05-08 05:42:00 Test Item Value Reference Range Interpretation Comments Potassium Lvl (test code = Potassium 4.4 3.5-5.1 Lvl) [facility]2018-05-08 05:42:00 Test Item Value Reference Range Interpretation Comments Chloride Lvl (test code = Chloride Lvl) 109 95-109 [facility]2018-05-08 05:42:00 Test Item Value Reference Range Interpretation Comments CO2 (test code = CO2) 23 24-32 [place] 743208-05-08 05:42:00 Test Item Value Reference Range Interpretation Comments Glucose Lvl (test code = Glucose Lvl) 114 70-99 [facility]2018-05-08 05:42:00 Test Item Value Reference Range Interpretation Comments Creatinine Lvl (test code = Creatinine 1.01 0.50-1.40 Lvl) [facility]2018-05-08 05:42:00 Test Item Value Reference Range Interpretation Comments BUN (test code = BUN) 17 7-22 [facility]2018-05-08 05:42:00 Test Item Value Reference Range Interpretation Comments Sodium Lvl (test code = Sodium Lvl) 142 135-145 [facility] HospitalOqctfxgZHQKMNDGIU0000-50-38 05:42:00 Test Item Value Reference Range Interpretation Comments Basophils (test code = 0.6 See_Comment [Aut omated message] The Basophils) system which ge nerated this result tra nsmitted reference range : <=1.0. The reference r boubacar was not used to int erpret this result as normal/abnormal . [facility] HospitalTjuobkyPNILPVZVHM0661-18-09 05:42:00 Test Item Value Reference Range Interpretation Comments Segs-Bands # (test code = Segs-Bands #) 4.8 1.5-8.1 [facility] HospitalLnspuayFFEQRTMWPU5474-78-96 05:42:00 Test Item Value Reference Range Interpretation Comments Monocytes # (test code 0.7 See_Comment [Aut omated message] The = Monocytes #) system which generated this result tra nsmitted reference range : <=0.8. The reference r boubacar was not used to int erpret this result as normal/abnormal . [place] 996948-05-08 05:42:00 Test Item Value Reference Range Interpretation Comments Lymphocytes # (test code = Lymphocytes 1.9 1.0-5.5 #) [facility] HospitalEztznupQWMMYNIBIE7094-92-64 05:42:00 Test Item Value Reference Range Interpretation Comments Monocytes (test code = Monocytes) 9.4 2.0-12.0 [facility] HospitalAfhfhjsQSTYADHPOX3445-49-17 05:42:00 Test Item Value Reference Range Interpretation Comments Eosinophils # (test code 0.2 See_Comment [A utomated message] The = Eosinophils #) system whic h generated this result tra nsmitted reference range : <=0.5. The reference r boubacar was not used to int erpret this result as normal/abnormal . [facility] HospitalJkzrbvgCMJYFBKRTA9547-78-48 05:42:00 Test Item Value Reference Range Interpretation Comments Eosinophils (test code = 2.9 See_Comment [A utomated message] The Eosinophils) system which ge nerated this result tra nsmitted reference range : <=4.0. The reference r boubacar was not used to int erpret this result as normal/abnormal . [facility] HospitalGuupbqjHUIYOQFILJ5330-14-60 05:42:00 Test Item Value Reference Range Interpretation Comments Segs (test code = Segs) 62.2 45.0-75.0 [facility] HospitalDcblbwwCQZWYHVPFX9785-95-59 05:42:00 Test Item Value Reference Range Interpretation Comments Lymphocytes (test code = Lymphocytes) 24.9 20.0-40.0 [facility] HospitalNxthmclCOKIOUTNQU0664-90-22 05:42:00 Test Item Value Reference Range Interpretation Comments MCH (test code = MCH) 27.5 pg 27.0-31.0 [facility] HospitalIpzplusVMRKMQTNJC6712-33-14 05:42:00 Test Item Value Reference Range Interpretation Comments MCV (test code = MCV) 85.3 80.0-94.0 [facility] HospitalFeujqveVXOEZKNBII5436-28-57 05:42:00 Test Item Value Reference Range Interpretation Comments Hct (test code = Hct) 43.9 42.0-54.0 [facility] HospitalJwqepejBGTBCGUUVW7340-87-42 05:42:00 Test Item Value Reference Range Interpretation Comments Hgb (test code = Hgb) 14.2 14.0-18.0 [facility] HospitalSzrmgfaSOKACHBBTL0957-77-02 05:42:00 Test Item Value Reference Range Interpretation Comments WBC (test code = WBC) 7.7 3.7-10.4 [facility] HospitalZbdmxtcMMCHGBJKQR8627-78-13 05:42:00 Test Item Value Reference Range Interpretation Comments RBC (test code = RBC) 5.15 4.70-6.10 [facility] HospitalZhpqfrxSGPNAZSTCN9069-57-86 05:42:00 Test Item Value Reference Range Interpretation Comments MPV (test code = MPV) 8.4 7.4-10.4 [facility] HospitalIaetebcCOYPFVUYAH2449-02-63 05:42:00 Test Item Value Reference Range Interpretation Comments MCHC (test code = MCHC) 32.3 32.0-36.0 [facility] HospitalTjlxbgzEXKEGGWWLZ7081-04-64 05:42:00 Test Item Value Reference Range Interpretation Comments RDW (test code = RDW) 17.3 11.5-14.5 [facility] HospitalOarycpbDQORINPPUX2843-69-43 05:42:00 Test Item Value Reference Range Interpretation Comments Platelet (test code = Platelet) 317 133-450 [facility]2018-05-08 05:42:00 Test Item Value Reference Range Interpretation Comments B/C Ratio (test code = B/C Ratio) 17 1 6-25 [facility]2018-05-08 05:42:00 Test Item Value Reference Range Interpretation Comments Globulin (test code = Globulin) 4.3 2.7-4.2 [facility]2018-05-08 05:42:00 Test Item Value Reference Range Interpretation Comments A/G Ratio (test code = A/G Ratio) 0.7 1 0.7-1.6 [facility]2018-05-08 05:42:00 Test Item Value Reference Range Interpretation Comments AGAP (test code = AGAP) 14.4 10.0-20.0 [facility]2018-05-08 05:42:00 Test Item Value Reference Range Interpretation Comments eGFR (test code = eGFR) 113 [facility]2018-05-08 05:42:00 Test Item Value Reference Range Interpretation Comments Alk Phos (test code = Alk Phos) 76 39-136 [facility]2018-05-08 05:42:00 Test Item Value Reference Range Interpretation Comments ALT (test code = ALT) 35 See_Comment [Auto mated message] The system which ge nerated this result transmit lester reference range : <=65. The reference range was not used to interpr et this result as dany l/abnormal. [facility]2018-05-08 05:42:00 Test Item Value Reference Range Interpretation Comments Albumin Lvl (test code = Albumin Lvl) 2.8 3.5-5.0 [facility]2018-05-08 05:42:00 Test Item Value Reference Range Interpretation Comments Total Protein (test code = Total 7.1 6.4-8.4 Protein) [facility]2018-05-08 05:42:00 Test Item Value Reference Range Interpretation Comments Calcium Lvl (test code = Calcium Lvl) 8.7 8.5-10.5 [facility]2018-05-08 05:42:00 Test Item Value Reference Range Interpretation Comments AST (test code = AST) 18 See_Comment [Auto mated message] The system which ge nerated this result transmit lester reference range : <=37. The reference range was not used to interpr et this result as dany l/abnormal. [facility]2018-05-08 05:42:00 Test Item Value Reference Range Interpretation Comments Bili Total (test code = Bili Total) 0.3 0.2-1.3 [facility]2018-05-08 05:42:00 Test Item Value Reference Range Interpretation Comments Potassium Lvl (test code = Potassium 4.4 3.5-5.1 Lvl) [facility]2018-05-08 05:42:00 Test Item Value Reference Range Interpretation Comments Chloride Lvl (test code = Chloride Lvl) 109 95-109 [facility]2018-05-08 05:42:00 Test Item Value Reference Range Interpretation Comments CO2 (test code = CO2) 23 24-32 [facility]2018-05-08 05:42:00 Test Item Value Reference Range Interpretation Comments Glucose Lvl (test code = Glucose Lvl) 114 70-99 [facility]2018-05-08 05:42:00 Test Item Value Reference Range Interpretation Comments Creatinine Lvl (test code = Creatinine 1.01 0.50-1.40 Lvl) [facility]2018-05-08 05:42:00 Test Item Value Reference Range Interpretation Comments BUN (test code = BUN) 17 7-22 [facility] SWQBJ4892-41-18 05:42:00 Test Item Value Reference Range Interpretation Comments Sodium Lvl (test code = Sodium Lvl) 142 135-145 [facility] HospitalPodyduwGTZCNXJVKK6190-27-23 05:42:00 Test Item Value Reference Range Interpretation Comments Basophils (test code = 0.6 See_Comment [Aut omated message] The Basophils) system which ge nerated this result tra nsmitted reference range : <=1.0. The reference r boubacar was not used to int erpret this result as normal/abnormal . [facility] HospitalEywvvdbDHGCBJBMBO0543-53-24 05:42:00 Test Item Value Reference Range Interpretation Comments Segs-Bands # (test code = Segs-Bands #) 4.8 1.5-8.1 [facility] HospitalMxcojfoPAZIDPWYJO1525-75-38 05:42:00 Test Item Value Reference Range Interpretation Comments Monocytes # (test code 0.7 See_Comment [Aut omated message] The = Monocytes #) system which generated this result tra nsmitted reference range : <=0.8. The reference r boubacar was not used to int erpret this result as normal/abnormal . [facility] HospitalQxkretnIMSLLAGTVE8619-35-15 05:42:00 Test Item Value Reference Range Interpretation Comments Lymphocytes # (test code = Lymphocytes 1.9 1.0-5.5 #) [facility] HospitalIdihaanRPNIEATEVS7817-22-34 05:42:00 Test Item Value Reference Range Interpretation Comments Monocytes (test code = Monocytes) 9.4 2.0-12.0 [facility] HospitalPftevcfZVXTQUEWAY6563-09-07 05:42:00 Test Item Value Reference Range Interpretation Comments Eosinophils # (test code 0.2 See_Comment [A utomated message] The = Eosinophils #) system whic h generated this result tra nsmitted reference range : <=0.5. The reference r boubacar was not used to int erpret this result as normal/abnormal . [facility] HospitalJlplrlpXMBSAHZYUO8883-30-38 05:42:00 Test Item Value Reference Range Interpretation Comments Eosinophils (test code = 2.9 See_Comment [A utomated message] The Eosinophils) system which ge nerated this result tra nsmitted reference range : <=4.0. The reference r boubacar was not used to int erpret this result as normal/abnormal . [facility] HospitalWwgntouFFCRDXYZMZ1025-87-23 05:42:00 Test Item Value Reference Range Interpretation Comments Segs (test code = Segs) 62.2 45.0-75.0 [facility] HospitalCyvxcqiNFICFSFMXZ2668-31-59 05:42:00 Test Item Value Reference Range Interpretation Comments Lymphocytes (test code = Lymphocytes) 24.9 20.0-40.0 [facility] HospitalAnccvwuYNCAYLLJED5203-76-03 05:42:00 Test Item Value Reference Range Interpretation Comments MCH (test code = MCH) 27.5 pg 27.0-31.0 [facility] HospitalYfffzlaYIMNBCWEYQ8828-32-41 05:42:00 Test Item Value Reference Range Interpretation Comments MCV (test code = MCV) 85.3 80.0-94.0 [facility] HospitalYawjmgkSLEDQONMFZ2867-65-89 05:42:00 Test Item Value Reference Range Interpretation Comments Hct (test code = Hct) 43.9 42.0-54.0 [facility] HospitalVxsyfmeLOORCLESTT1270-30-37 05:42:00 Test Item Value Reference Range Interpretation Comments Hgb (test code = Hgb) 14.2 14.0-18.0 [facility] HospitalMewemrvFCLPTKIILR1936-02-96 05:42:00 Test Item Value Reference Range Interpretation Comments WBC (test code = WBC) 7.7 3.7-10.4 [facility] HospitalEvoavigHTBNKRDYLA5965-67-43 05:42:00 Test Item Value Reference Range Interpretation Comments RBC (test code = RBC) 5.15 4.70-6.10 [facility] HospitalYhlheseBANFGRXRPF6124-13-30 05:42:00 Test Item Value Reference Range Interpretation Comments MPV (test code = MPV) 8.4 7.4-10.4 [facility] HospitalCdqubriKRKUYTBGBQ2618-57-49 05:42:00 Test Item Value Reference Range Interpretation Comments MCHC (test code = MCHC) 32.3 32.0-36.0 [facility] HospitalMawotuaPLGNEWYOPA5369-61-46 05:42:00 Test Item Value Reference Range Interpretation Comments RDW (test code = RDW) 17.3 11.5-14.5 [facility] HospitalFlxkzkvSBAIOMBJEY4290-69-46 05:42:00 Test Item Value Reference Range Interpretation Comments Platelet (test code = Platelet) 317 133-450 [facility]2018-05-08 05:42:00 Test Item Value Reference Range Interpretation Comments B/C Ratio (test code = B/C Ratio) 17 1 6-25 [facility]2018-05-08 05:42:00 Test Item Value Reference Range Interpretation Comments Globulin (test code = Globulin) 4.3 2.7-4.2 [facility]2018-05-08 05:42:00 Test Item Value Reference Range Interpretation Comments A/G Ratio (test code = A/G Ratio) 0.7 1 0.7-1.6 [facility]2018-05-08 05:42:00 Test Item Value Reference Range Interpretation Comments AGAP (test code = AGAP) 14.4 10.0-20.0 [facility]2018-05-08 05:42:00 Test Item Value Reference Range Interpretation Comments eGFR (test code = eGFR) 113 [facility]2018-05-08 05:42:00 Test Item Value Reference Range Interpretation Comments Alk Phos (test code = Alk Phos) 76 39-136 [facility]2018-05-08 05:42:00 Test Item Value Reference Range Interpretation Comments ALT (test code = ALT) 35 See_Comment [Auto mated message] The system which ge nerated this result transmit lester reference range : <=65. The reference range was not used to interpr et this result as dany l/abnormal. [facility]2018-05-08 05:42:00 Test Item Value Reference Range Interpretation Comments Albumin Lvl (test code = Albumin Lvl) 2.8 3.5-5.0 [facility]2018-05-08 05:42:00 Test Item Value Reference Range Interpretation Comments Total Protein (test code = Total 7.1 6.4-8.4 Protein) [facility]2018-05-08 05:42:00 Test Item Value Reference Range Interpretation Comments Calcium Lvl (test code = Calcium Lvl) 8.7 8.5-10.5 [facility]2018-05-08 05:42:00 Test Item Value Reference Range Interpretation Comments AST (test code = AST) 18 See_Comment [Auto mated message] The system which ge nerated this result transmit lester reference range : <=37. The reference range was not used to interpr et this result as dany l/abnormal. [facility]2018-05-08 05:42:00 Test Item Value Reference Range Interpretation Comments Bili Total (test code = Bili Total) 0.3 0.2-1.3 [place] 743208-05-08 05:42:00 Test Item Value Reference Range Interpretation Comments Potassium Lvl (test code = Potassium 4.4 3.5-5.1 Lvl) [facility]2018-05-08 05:42:00 Test Item Value Reference Range Interpretation Comments Chloride Lvl (test code = Chloride Lvl) 109 95-109 [facility]2018-05-08 05:42:00 Test Item Value Reference Range Interpretation Comments CO2 (test code = CO2) 23 24-32 [place] 743208-05-08 05:42:00 Test Item Value Reference Range Interpretation Comments Glucose Lvl (test code = Glucose Lvl) 114 70-99 [facility]2018-05-08 05:42:00 Test Item Value Reference Range Interpretation Comments Creatinine Lvl (test code = Creatinine 1.01 0.50-1.40 Lvl) [facility]2018-05-08 05:42:00 Test Item Value Reference Range Interpretation Comments BUN (test code = BUN) 17 7-22 [facility]2018-05-08 05:42:00 Test Item Value Reference Range Interpretation Comments Sodium Lvl (test code = Sodium Lvl) 142 135-145 [facility] HospitalRmpigxzMOTHMDXPJC7797-52-91 05:42:00 Test Item Value Reference Range Interpretation Comments Basophils (test code = 0.6 See_Comment [Aut omated message] The Basophils) system which ge nerated this result tra nsmitted reference range : <=1.0. The reference r boubacar was not used to int erpret this result as normal/abnormal . [facility] HospitalQdalthwEJDGRCPOZV7821-02-70 05:42:00 Test Item Value Reference Range Interpretation Comments Segs-Bands # (test code = Segs-Bands #) 4.8 1.5-8.1 [place] 996948-05-08 05:42:00 Test Item Value Reference Range Interpretation Comments Monocytes # (test code 0.7 See_Comment [Aut omated message] The = Monocytes #) system which generated this result tra nsmitted reference range : <=0.8. The reference r boubacar was not used to int erpret this result as normal/abnormal . [facility] HospitalJhcmudbSWVASNBNLL8859-16-94 05:42:00 Test Item Value Reference Range Interpretation Comments Lymphocytes # (test code = Lymphocytes 1.9 1.0-5.5 #) [facility] HospitalSvrlaycZCDFSALBTP0283-03-66 05:42:00 Test Item Value Reference Range Interpretation Comments Monocytes (test code = Monocytes) 9.4 2.0-12.0 [facility] HospitalFsbshpcDQRRFBAMDY5704-75-28 05:42:00 Test Item Value Reference Range Interpretation Comments Eosinophils # (test code 0.2 See_Comment [A utomated message] The = Eosinophils #) system whic h generated this result tra nsmitted reference range : <=0.5. The reference r boubacar was not used to int erpret this result as normal/abnormal . [facility] HospitalSvkufkkIRASWXXOPA0839-06-77 05:42:00 Test Item Value Reference Range Interpretation Comments Eosinophils (test code = 2.9 See_Comment [A utomated message] The Eosinophils) system which ge nerated this result tra nsmitted reference range : <=4.0. The reference r boubacar was not used to int erpret this result as normal/abnormal . [facility] HospitalHwyvqpiYOWAVZLQHI9702-74-80 05:42:00 Test Item Value Reference Range Interpretation Comments Segs (test code = Segs) 62.2 45.0-75.0 [facility] HospitalQrveqgbNUJHEDEDIX9810-60-08 05:42:00 Test Item Value Reference Range Interpretation Comments Lymphocytes (test code = Lymphocytes) 24.9 20.0-40.0 [facility] HospitalGsqltyiVUPDXIGINF8794-42-00 05:42:00 Test Item Value Reference Range Interpretation Comments MCH (test code = MCH) 27.5 pg 27.0-31.0 [facility] HospitalHsvgqavTWSWRZXAZL2949-93-36 05:42:00 Test Item Value Reference Range Interpretation Comments MCV (test code = MCV) 85.3 80.0-94.0 [facility] HospitalKotufafUZSMEEZBLT1515-40-24 05:42:00 Test Item Value Reference Range Interpretation Comments Hct (test code = Hct) 43.9 42.0-54.0 [facility] HospitalPrnpegePWMFBOWEIW7140-61-90 05:42:00 Test Item Value Reference Range Interpretation Comments Hgb (test code = Hgb) 14.2 14.0-18.0 [facility] HospitalJryjjyrRQWZCFEDTA9764-33-23 05:42:00 Test Item Value Reference Range Interpretation Comments WBC (test code = WBC) 7.7 3.7-10.4 [facility] HospitalOuazipcLHHLDNKTRP1519-48-82 05:42:00 Test Item Value Reference Range Interpretation Comments RBC (test code = RBC) 5.15 4.70-6.10 [facility] HospitalRavzruaBKUROHNHPL4150-02-73 05:42:00 Test Item Value Reference Range Interpretation Comments MPV (test code = MPV) 8.4 7.4-10.4 [facility] HospitalLtwajykSHXDGWLTAM9536-80-67 05:42:00 Test Item Value Reference Range Interpretation Comments MCHC (test code = MCHC) 32.3 32.0-36.0 [facility] HospitalImujczvXHEOSRBGTK8032-73-68 05:42:00 Test Item Value Reference Range Interpretation Comments RDW (test code = RDW) 17.3 11.5-14.5 [facility] HospitalWblimklOXXMKPICCC7925-41-64 05:42:00 Test Item Value Reference Range Interpretation Comments Platelet (test code = Platelet) 317 133-450 [facility]2018-05-07 09:36:00 Test Item Value Reference Range Interpretation Comments Globulin (test code = Globulin) 4.4 2.7-4.2 [facility]2018-05-07 09:36:00 Test Item Value Reference Range Interpretation Comments A/G Ratio (test code = A/G Ratio) 0.6 1 0.7-1.6 [facility]2018-05-07 09:36:00 Test Item Value Reference Range Interpretation Comments B/C Ratio (test code = B/C Ratio) 17 1 6-25 [facility]2018-05-07 09:36:00 Test Item Value Reference Range Interpretation Comments AGAP (test code = AGAP) 11.3 10.0-20.0 [facility]2018-05-07 09:36:00 Test Item Value Reference Range Interpretation Comments eGFR (test code = eGFR) 134 [facility]2018-05-07 09:36:00 Test Item Value Reference Range Interpretation Comments Creatinine Lvl (test code = Creatinine 0.84 0.50-1.40 Lvl) [facility]2018-05-07 09:36:00 Test Item Value Reference Range Interpretation Comments Sodium Lvl (test code = Sodium Lvl) 142 135-145 [place] 743208-05-07 09:36:00 Test Item Value Reference Range Interpretation Comments Glucose Lvl (test code = Glucose Lvl) 99 70-99 [facility]2018-05-07 09:36:00 Test Item Value Reference Range Interpretation Comments BUN (test code = BUN) 14 7-22 [place] 743208-05-07 09:36:00 Test Item Value Reference Range Interpretation Comments Alk Phos (test code = Alk Phos) 79 39-136 [facility]2018-05-07 09:36:00 Test Item Value Reference Range Interpretation Comments Bili Total (test code = Bili Total) 0.3 0.2-1.3 [place] 743208-05-07 09:36:00 Test Item Value Reference Range Interpretation Comments AST (test code = AST) 14 See_Comment [Auto mated message] The system which ge nerated this result transmit lester reference range : <=37. The reference range was not used to interpr et this result as dany l/abnormal. [place] 743208-05-07 09:36:00 Test Item Value Reference Range Interpretation Comments ALT (test code = ALT) 43 See_Comment [Auto mated message] The system which ge nerated this result transmit lester reference range : <=65. The reference range was not used to interpr et this result as dany l/abnormal. [facility]2018-05-07 09:36:00 Test Item Value Reference Range Interpretation Comments Total Protein (test code = Total 7.1 6.4-8.4 Protein) [place] 743208-05-07 09:36:00 Test Item Value Reference Range Interpretation Comments Albumin Lvl (test code = Albumin Lvl) 2.7 3.5-5.0 [place] 743208-05-07 09:36:00 Test Item Value Reference Range Interpretation Comments Calcium Lvl (test code = Calcium Lvl) 9.2 8.5-10.5 [place] 743208-05-07 09:36:00 Test Item Value Reference Range Interpretation Comments CO2 (test code = CO2) 21 24-32 [facility]2018-05-07 09:36:00 Test Item Value Reference Range Interpretation Comments Potassium Lvl (test code = Potassium 4.3 3.5-5.1 Lvl) [facility]2018-05-07 09:36:00 Test Item Value Reference Range Interpretation Comments Chloride Lvl (test code = Chloride Lvl) 114 95-109 [facility] HospitalQlusbqcDXJUUWSENE5751-84-73 09:36:00 Test Item Value Reference Range Interpretation Comments MCHC (test code = MCHC) 32.5 32.0-36.0 [facility] HospitalWmrbiwyMIUIAHMHZI1515-18-87 09:36:00 Test Item Value Reference Range Interpretation Comments RDW (test code = RDW) 17.5 11.5-14.5 [facility] HospitalMimseebTLPLBGCZMT3931-39-89 09:36:00 Test Item Value Reference Range Interpretation Comments Platelet (test code = Platelet) 400 133-450 [facility] HospitalFiaqkrrPPBDSAYGPA8479-06-90 09:36:00 Test Item Value Reference Range Interpretation Comments MPV (test code = MPV) 8.5 7.4-10.4 [facility] HospitalZkmpqmrQSERBBGDKX1849-13-15 09:36:00 Test Item Value Reference Range Interpretation Comments WBC (test code = WBC) 6.6 3.7-10.4 [facility] HospitalDbmdcpnBOJHUIHKBK1610-53-42 09:36:00 Test Item Value Reference Range Interpretation Comments RBC (test code = RBC) 5.17 4.70-6.10 [facility] HospitalOegxjwfUZXDJSYLUX6685-01-72 09:36:00 Test Item Value Reference Range Interpretation Comments MCV (test code = MCV) 86.1 80.0-94.0 [place] [address]-05-07 09:36:00 Test Item Value Reference Range Interpretation Comments Hct (test code = Hct) 44.5 42.0-54.0 [facility] HospitalCxxvjsrUAXQQIHWSI9231-60-16 09:36:00 Test Item Value Reference Range Interpretation Comments MCH (test code = MCH) 28.0 pg 27.0-31.0 [facility] HospitalIejczxkNTANIZJOBV0658-60-93 09:36:00 Test Item Value Reference Range Interpretation Comments Hgb (test code = Hgb) 14.5 14.0-18.0 [facility] HospitalLsrteeyPTUSGWLKXY2167-91-71 09:36:00 Test Item Value Reference Range Interpretation Comments Lymphocytes # (test code = Lymphocytes 1.7 1.0-5.5 #) [facility] HospitalTpzhskgDBZKYLTWXQ8687-27-94 09:36:00 Test Item Value Reference Range Interpretation Comments Monocytes # (test code 0.7 See_Comment [Aut omated message] The = Monocytes #) system which generated this result tra nsmitted reference range : <=0.8. The reference r boubacar was not used to int erpret this result as normal/abnormal . [facility] HospitalNjitjhcKTOMBAWUHO6696-70-36 09:36:00 Test Item Value Reference Range Interpretation Comments Eosinophils # (test code 0.2 See_Comment [A utomated message] The = Eosinophils #) system whic h generated this result tra nsmitted reference range : <=0.5. The reference r boubacar was not used to int erpret this result as normal/abnormal . [facility] HospitalQjpzufsNPGOWCPHKO1576-21-60 09:36:00 Test Item Value Reference Range Interpretation Comments Lymphocytes (test code = Lymphocytes) 26.1 20.0-40.0 [facility] HospitalLmrtiqkCEWUOICWDF0301-64-89 09:36:00 Test Item Value Reference Range Interpretation Comments Segs (test code = Segs) 59.3 45.0-75.0 [facility] HospitalScwwumqWZLOEOAWKF7285-48-97 09:36:00 Test Item Value Reference Range Interpretation Comments Basophils (test code = 0.8 See_Comment [Aut omated message] The Basophils) system which ge nerated this result tra nsmitted reference range : <=1.0. The reference r boubacar was not used to int erpret this result as normal/abnormal . [facility] HospitalHgihfwwVCQCVROEMW9302-03-33 09:36:00 Test Item Value Reference Range Interpretation Comments Monocytes (test code = Monocytes) 10.5 2.0-12.0 [facility] HospitalAiubzkkHIGLNIVNRJ4608-95-97 09:36:00 Test Item Value Reference Range Interpretation Comments Eosinophils (test code = 3.3 See_Comment [A utomated message] The Eosinophils) system which ge nerated this result tra nsmitted reference range : <=4.0. The reference r boubacar was not used to int erpret this result as normal/abnormal . [facility] HospitalLwqlzqfHGFLJXXYYI0805-40-89 09:36:00 Test Item Value Reference Range Interpretation Comments Segs-Bands # (test code = Segs-Bands #) 3.9 1.5-8.1 [facility]2018-05-07 09:36:00 Test Item Value Reference Range Interpretation Comments Globulin (test code = Globulin) 4.4 2.7-4.2 [facility]2018-05-07 09:36:00 Test Item Value Reference Range Interpretation Comments A/G Ratio (test code = A/G Ratio) 0.6 1 0.7-1.6 [place] 743208-05-07 09:36:00 Test Item Value Reference Range Interpretation Comments B/C Ratio (test code = B/C Ratio) 17 1 6-25 [place] 743208-05-07 09:36:00 Test Item Value Reference Range Interpretation Comments AGAP (test code = AGAP) 11.3 10.0-20.0 [facility]2018-05-07 09:36:00 Test Item Value Reference Range Interpretation Comments eGFR (test code = eGFR) 134 [facility]2018-05-07 09:36:00 Test Item Value Reference Range Interpretation Comments Creatinine Lvl (test code = Creatinine 0.84 0.50-1.40 Lvl) [facility]2018-05-07 09:36:00 Test Item Value Reference Range Interpretation Comments Sodium Lvl (test code = Sodium Lvl) 142 135-145 [facility]2018-05-07 09:36:00 Test Item Value Reference Range Interpretation Comments Glucose Lvl (test code = Glucose Lvl) 99 70-99 [facility]2018-05-07 09:36:00 Test Item Value Reference Range Interpretation Comments BUN (test code = BUN) 14 7-22 [place] 743208-05-07 09:36:00 Test Item Value Reference Range Interpretation Comments Alk Phos (test code = Alk Phos) 79 39-136 [place] 743208-05-07 09:36:00 Test Item Value Reference Range Interpretation Comments Bili Total (test code = Bili Total) 0.3 0.2-1.3 [place] [address]-05-07 09:36:00 Test Item Value Reference Range Interpretation Comments AST (test code = AST) 14 See_Comment [Auto mated message] The system which ge nerated this result transmit lester reference range : <=37. The reference range was not used to interpr et this result as dany l/abnormal. [place] 743208-05-07 09:36:00 Test Item Value Reference Range Interpretation Comments ALT (test code = ALT) 43 See_Comment [Auto mated message] The system which ge nerated this result transmit lester reference range : <=65. The reference range was not used to interpr et this result as dany l/abnormal. [place] [address]-05-07 09:36:00 Test Item Value Reference Range Interpretation Comments Total Protein (test code = Total 7.1 6.4-8.4 Protein) [place] 743208-05-07 09:36:00 Test Item Value Reference Range Interpretation Comments Albumin Lvl (test code = Albumin Lvl) 2.7 3.5-5.0 [place] 743208-05-07 09:36:00 Test Item Value Reference Range Interpretation Comments Calcium Lvl (test code = Calcium Lvl) 9.2 8.5-10.5 [place] 743208-05-07 09:36:00 Test Item Value Reference Range Interpretation Comments CO2 (test code = CO2) 21 24-32 [place] 743208-05-07 09:36:00 Test Item Value Reference Range Interpretation Comments Potassium Lvl (test code = Potassium 4.3 3.5-5.1 Lvl) [place] 743208-05-07 09:36:00 Test Item Value Reference Range Interpretation Comments Chloride Lvl (test code = Chloride Lvl) 114 95-109 [facility] HospitalFtsaeaaNJAOKIWDMN8613-75-45 09:36:00 Test Item Value Reference Range Interpretation Comments MCHC (test code = MCHC) 32.5 32.0-36.0 [facility] HospitalEwdagzoXIMPUPWJJA6789-25-71 09:36:00 Test Item Value Reference Range Interpretation Comments RDW (test code = RDW) 17.5 11.5-14.5 [place] 996948-05-07 09:36:00 Test Item Value Reference Range Interpretation Comments Platelet (test code = Platelet) 400 133-450 [facility] HospitalGgmqjvuRKKZSNOGSK2418-58-00 09:36:00 Test Item Value Reference Range Interpretation Comments MPV (test code = MPV) 8.5 7.4-10.4 [facility] HospitalJwrpqhkIXYFVCZFTS0462-35-68 09:36:00 Test Item Value Reference Range Interpretation Comments WBC (test code = WBC) 6.6 3.7-10.4 [facility] HospitalJykwhbdRPKSGMQVEZ7951-67-46 09:36:00 Test Item Value Reference Range Interpretation Comments RBC (test code = RBC) 5.17 4.70-6.10 [facility] HospitalZoyuianLPKQIWTUEN8902-23-78 09:36:00 Test Item Value Reference Range Interpretation Comments MCV (test code = MCV) 86.1 80.0-94.0 [facility] HospitalTjsozsxFYZLGCRKEM0088-20-66 09:36:00 Test Item Value Reference Range Interpretation Comments Hct (test code = Hct) 44.5 42.0-54.0 [facility] HospitalXhyrxinUTMXHYXRXG4840-54-73 09:36:00 Test Item Value Reference Range Interpretation Comments MCH (test code = MCH) 28.0 pg 27.0-31.0 [facility] HospitalXxkmzjqXDMCXQBIKS5043-61-30 09:36:00 Test Item Value Reference Range Interpretation Comments Hgb (test code = Hgb) 14.5 14.0-18.0 [facility] HospitalSowguluDTSXDGGKYY7522-81-72 09:36:00 Test Item Value Reference Range Interpretation Comments Lymphocytes # (test code = Lymphocytes 1.7 1.0-5.5 #) [facility] HospitalFhamoouRGUSGFJCZM6400-94-93 09:36:00 Test Item Value Reference Range Interpretation Comments Monocytes # (test code 0.7 See_Comment [Aut omated message] The = Monocytes #) system which generated this result tra nsmitted reference range : <=0.8. The reference r boubacar was not used to int erpret this result as normal/abnormal . [facility] HospitalYovvpjbOWFJKJBQGF9761-38-57 09:36:00 Test Item Value Reference Range Interpretation Comments Eosinophils # (test code 0.2 See_Comment [A utomated message] The = Eosinophils #) system whic h generated this result tra nsmitted reference range : <=0.5. The reference r boubacar was not used to int erpret this result as normal/abnormal . [facility] HospitalKimrrewEADTPUPMVE4729-02-39 09:36:00 Test Item Value Reference Range Interpretation Comments Lymphocytes (test code = Lymphocytes) 26.1 20.0-40.0 [facility] HospitalDljorwfVQNXKTIBWH2640-50-50 09:36:00 Test Item Value Reference Range Interpretation Comments Segs (test code = Segs) 59.3 45.0-75.0 [facility] HospitalIxysimwCYESKWIFEZ9397-03-65 09:36:00 Test Item Value Reference Range Interpretation Comments Basophils (test code = 0.8 See_Comment [Aut omated message] The Basophils) system which ge nerated this result tra nsmitted reference range : <=1.0. The reference r boubacar was not used to int erpret this result as normal/abnormal . [facility] HospitalUbncnijOBHBKFLSCG7002-11-08 09:36:00 Test Item Value Reference Range Interpretation Comments Monocytes (test code = Monocytes) 10.5 2.0-12.0 [facility] HospitalNnxvjmcFVXDHSWXWY6943-71-77 09:36:00 Test Item Value Reference Range Interpretation Comments Eosinophils (test code = 3.3 See_Comment [A utomated message] The Eosinophils) system which ge nerated this result tra nsmitted reference range : <=4.0. The reference r boubacar was not used to int erpret this result as normal/abnormal . [facility] HospitalRprqrrbOICVUQIKGJ0593-07-25 09:36:00 Test Item Value Reference Range Interpretation Comments Segs-Bands # (test code = Segs-Bands #) 3.9 1.5-8.1 [facility]2018-05-07 09:36:00 Test Item Value Reference Range Interpretation Comments Globulin (test code = Globulin) 4.4 2.7-4.2 [facility]2018-05-07 09:36:00 Test Item Value Reference Range Interpretation Comments A/G Ratio (test code = A/G Ratio) 0.6 1 0.7-1.6 [facility]2018-05-07 09:36:00 Test Item Value Reference Range Interpretation Comments B/C Ratio (test code = B/C Ratio) 17 1 6-25 [facility]2018-05-07 09:36:00 Test Item Value Reference Range Interpretation Comments AGAP (test code = AGAP) 11.3 10.0-20.0 [place] 743208-05-07 09:36:00 Test Item Value Reference Range Interpretation Comments eGFR (test code = eGFR) 134 [place] 743208-05-07 09:36:00 Test Item Value Reference Range Interpretation Comments Creatinine Lvl (test code = Creatinine 0.84 0.50-1.40 Lvl) [facility]2018-05-07 09:36:00 Test Item Value Reference Range Interpretation Comments Sodium Lvl (test code = Sodium Lvl) 142 135-145 [place] 743208-05-07 09:36:00 Test Item Value Reference Range Interpretation Comments Glucose Lvl (test code = Glucose Lvl) 99 70-99 [place] 743208-05-07 09:36:00 Test Item Value Reference Range Interpretation Comments BUN (test code = BUN) 14 7-22 [place] 743208-05-07 09:36:00 Test Item Value Reference Range Interpretation Comments Alk Phos (test code = Alk Phos) 79 39-136 [place] 743208-05-07 09:36:00 Test Item Value Reference Range Interpretation Comments Bili Total (test code = Bili Total) 0.3 0.2-1.3 [place] 743208-05-07 09:36:00 Test Item Value Reference Range Interpretation Comments AST (test code = AST) 14 See_Comment [Auto mated message] The system which ge nerated this result transmit lester reference range : <=37. The reference range was not used to interpr et this result as dany l/abnormal. [place] 743208-05-07 09:36:00 Test Item Value Reference Range Interpretation Comments ALT (test code = ALT) 43 See_Comment [Auto mated message] The system which ge nerated this result transmit lester reference range : <=65. The reference range was not used to interpr et this result as dany l/abnormal. [place] 743208-05-07 09:36:00 Test Item Value Reference Range Interpretation Comments Total Protein (test code = Total 7.1 6.4-8.4 Protein) [place] 743208-05-07 09:36:00 Test Item Value Reference Range Interpretation Comments Albumin Lvl (test code = Albumin Lvl) 2.7 3.5-5.0 [facility]2018-05-07 09:36:00 Test Item Value Reference Range Interpretation Comments Calcium Lvl (test code = Calcium Lvl) 9.2 8.5-10.5 [facility]2018-05-07 09:36:00 Test Item Value Reference Range Interpretation Comments CO2 (test code = CO2) 21 24-32 [facility]2018-05-07 09:36:00 Test Item Value Reference Range Interpretation Comments Potassium Lvl (test code = Potassium 4.3 3.5-5.1 Lvl) [facility]2018-05-07 09:36:00 Test Item Value Reference Range Interpretation Comments Chloride Lvl (test code = Chloride Lvl) 114 95-109 [facility] HospitalNibgmdyYCHPOCEJID1398-37-88 09:36:00 Test Item Value Reference Range Interpretation Comments MCHC (test code = MCHC) 32.5 32.0-36.0 [facility] HospitalQtxtnxfZHVDMSXZHB4710-76-08 09:36:00 Test Item Value Reference Range Interpretation Comments RDW (test code = RDW) 17.5 11.5-14.5 [facility] HospitalLbkylspNMXVCADVON5355-27-39 09:36:00 Test Item Value Reference Range Interpretation Comments Platelet (test code = Platelet) 400 133-450 [facility] HospitalMusejvkXLWLJYFTNR8779-00-28 09:36:00 Test Item Value Reference Range Interpretation Comments MPV (test code = MPV) 8.5 7.4-10.4 [facility] HospitalLfjlorvOKFBWAPWDU5192-00-43 09:36:00 Test Item Value Reference Range Interpretation Comments WBC (test code = WBC) 6.6 3.7-10.4 [facility] HospitalFaxzdkzCJNVWHAAKL3446-37-07 09:36:00 Test Item Value Reference Range Interpretation Comments RBC (test code = RBC) 5.17 4.70-6.10 [facility] HospitalBnwcakyPFTSWDUBCY9627-19-05 09:36:00 Test Item Value Reference Range Interpretation Comments MCV (test code = MCV) 86.1 80.0-94.0 [place] 996948-05-07 09:36:00 Test Item Value Reference Range Interpretation Comments Hct (test code = Hct) 44.5 42.0-54.0 [facility] HospitalVqrcjcaBGXCVESPOI3195-62-55 09:36:00 Test Item Value Reference Range Interpretation Comments MCH (test code = MCH) 28.0 pg 27.0-31.0 [facility] HospitalIndsczdQJWJXOXRQD0085-59-44 09:36:00 Test Item Value Reference Range Interpretation Comments Hgb (test code = Hgb) 14.5 14.0-18.0 [facility] HospitalSjykaojSGQESZZIHM0523-68-08 09:36:00 Test Item Value Reference Range Interpretation Comments Lymphocytes # (test code = Lymphocytes 1.7 1.0-5.5 #) [facility] HospitalBzzagdeVEANPORMXB8746-66-71 09:36:00 Test Item Value Reference Range Interpretation Comments Monocytes # (test code 0.7 See_Comment [Aut omated message] The = Monocytes #) system which generated this result tra nsmitted reference range : <=0.8. The reference r boubacar was not used to int erpret this result as normal/abnormal . [facility] HospitalPnpctujVAPUJNRMFI7198-15-52 09:36:00 Test Item Value Reference Range Interpretation Comments Eosinophils # (test code 0.2 See_Comment [A utomated message] The = Eosinophils #) system whic h generated this result tra nsmitted reference range : <=0.5. The reference r boubacar was not used to int erpret this result as normal/abnormal . [facility] HospitalBdqfibhGGFCCCUKVH0945-80-79 09:36:00 Test Item Value Reference Range Interpretation Comments Lymphocytes (test code = Lymphocytes) 26.1 20.0-40.0 [facility] HospitalUrekfwxEVFMBJDPHG0974-44-13 09:36:00 Test Item Value Reference Range Interpretation Comments Segs (test code = Segs) 59.3 45.0-75.0 [facility] HospitalUjtpyvcCIMNNHXKHF6687-38-41 09:36:00 Test Item Value Reference Range Interpretation Comments Basophils (test code = 0.8 See_Comment [Aut omated message] The Basophils) system which ge nerated this result tra nsmitted reference range : <=1.0. The reference r boubacar was not used to int erpret this result as normal/abnormal . [facility] HospitalKvagaszPNCFJZRTIT2504-43-73 09:36:00 Test Item Value Reference Range Interpretation Comments Monocytes (test code = Monocytes) 10.5 2.0-12.0 [facility] HospitalGjdapzyRCGLFSOCSS1893-54-58 09:36:00 Test Item Value Reference Range Interpretation Comments Eosinophils (test code = 3.3 See_Comment [A utomated message] The Eosinophils) system which ge nerated this result tra nsmitted reference range : <=4.0. The reference r boubacar was not used to int erpret this result as normal/abnormal . [facility] HospitalGutivuhLGFHLNRZGF5786-27-05 09:36:00 Test Item Value Reference Range Interpretation Comments Segs-Bands # (test code = Segs-Bands #) 3.9 1.5-8.1 [facility]2018-05-07 09:36:00 Test Item Value Reference Range Interpretation Comments Globulin (test code = Globulin) 4.4 2.7-4.2 [facility]2018-05-07 09:36:00 Test Item Value Reference Range Interpretation Comments A/G Ratio (test code = A/G Ratio) 0.6 1 0.7-1.6 [facility]2018-05-07 09:36:00 Test Item Value Reference Range Interpretation Comments B/C Ratio (test code = B/C Ratio) 17 1 6-25 [facility]2018-05-07 09:36:00 Test Item Value Reference Range Interpretation Comments AGAP (test code = AGAP) 11.3 10.0-20.0 [facility]2018-05-07 09:36:00 Test Item Value Reference Range Interpretation Comments eGFR (test code = eGFR) 134 [facility]2018-05-07 09:36:00 Test Item Value Reference Range Interpretation Comments Creatinine Lvl (test code = Creatinine 0.84 0.50-1.40 Lvl) [facility]2018-05-07 09:36:00 Test Item Value Reference Range Interpretation Comments Sodium Lvl (test code = Sodium Lvl) 142 135-145 [facility]2018-05-07 09:36:00 Test Item Value Reference Range Interpretation Comments Glucose Lvl (test code = Glucose Lvl) 99 70-99 [facility]2018-05-07 09:36:00 Test Item Value Reference Range Interpretation Comments BUN (test code = BUN) 14 7-22 [place] 743208-05-07 09:36:00 Test Item Value Reference Range Interpretation Comments Alk Phos (test code = Alk Phos) 79 39-136 [facility]2018-05-07 09:36:00 Test Item Value Reference Range Interpretation Comments Bili Total (test code = Bili Total) 0.3 0.2-1.3 [place] 743208-05-07 09:36:00 Test Item Value Reference Range Interpretation Comments AST (test code = AST) 14 See_Comment [Auto mated message] The system which ge nerated this result transmit lester reference range : <=37. The reference range was not used to interpr et this result as dany l/abnormal. [place] 743208-05-07 09:36:00 Test Item Value Reference Range Interpretation Comments ALT (test code = ALT) 43 See_Comment [Auto mated message] The system which ge nerated this result transmit lester reference range : <=65. The reference range was not used to interpr et this result as dany l/abnormal. [facility]2018-05-07 09:36:00 Test Item Value Reference Range Interpretation Comments Total Protein (test code = Total 7.1 6.4-8.4 Protein) [facility]2018-05-07 09:36:00 Test Item Value Reference Range Interpretation Comments Albumin Lvl (test code = Albumin Lvl) 2.7 3.5-5.0 [place] 743208-05-07 09:36:00 Test Item Value Reference Range Interpretation Comments Calcium Lvl (test code = Calcium Lvl) 9.2 8.5-10.5 [place] 743208-05-07 09:36:00 Test Item Value Reference Range Interpretation Comments CO2 (test code = CO2) 21 24-32 [facility]2018-05-07 09:36:00 Test Item Value Reference Range Interpretation Comments Potassium Lvl (test code = Potassium 4.3 3.5-5.1 Lvl) [facility]2018-05-07 09:36:00 Test Item Value Reference Range Interpretation Comments Chloride Lvl (test code = Chloride Lvl) 114 95-109 [facility] HospitalRefixjqKZTHWAOIVY0596-06-25 09:36:00 Test Item Value Reference Range Interpretation Comments MCHC (test code = MCHC) 32.5 32.0-36.0 [facility] HospitalWaqjkndDOOBKHSRXW0059-07-34 09:36:00 Test Item Value Reference Range Interpretation Comments RDW (test code = RDW) 17.5 11.5-14.5 [facility] HospitalRlynwbnRVIEYWYVHE6441-86-20 09:36:00 Test Item Value Reference Range Interpretation Comments Platelet (test code = Platelet) 400 133-450 [facility] HospitalDrnatdyWLLFYOUONX1673-49-72 09:36:00 Test Item Value Reference Range Interpretation Comments MPV (test code = MPV) 8.5 7.4-10.4 [facility] HospitalObnikafASBIRXGLNH8122-71-11 09:36:00 Test Item Value Reference Range Interpretation Comments WBC (test code = WBC) 6.6 3.7-10.4 [facility] HospitalVjosabcHCGKFITLDX8806-38-93 09:36:00 Test Item Value Reference Range Interpretation Comments RBC (test code = RBC) 5.17 4.70-6.10 [facility] HospitalRucpdhhFWWXMDWMPO2738-73-05 09:36:00 Test Item Value Reference Range Interpretation Comments MCV (test code = MCV) 86.1 80.0-94.0 [facility] HospitalDjcgfaeZFHMCHEPCP2202-71-10 09:36:00 Test Item Value Reference Range Interpretation Comments Hct (test code = Hct) 44.5 42.0-54.0 [facility] HospitalLnofcdsGEKTZDYDUM6700-50-47 09:36:00 Test Item Value Reference Range Interpretation Comments MCH (test code = MCH) 28.0 pg 27.0-31.0 [facility] HospitalNogebgpTZKRXNBGKW5627-68-63 09:36:00 Test Item Value Reference Range Interpretation Comments Hgb (test code = Hgb) 14.5 14.0-18.0 [facility] HospitalFczxlrpMYJHEJZYBQ3598-26-33 09:36:00 Test Item Value Reference Range Interpretation Comments Lymphocytes # (test code = Lymphocytes 1.7 1.0-5.5 #) [facility] HospitalLaoyguqFCAMQWYTNK9427-69-79 09:36:00 Test Item Value Reference Range Interpretation Comments Monocytes # (test code 0.7 See_Comment [Aut omated message] The = Monocytes #) system which generated this result tra nsmitted reference range : <=0.8. The reference r boubacar was not used to int erpret this result as normal/abnormal . [facility] HospitalLwbecgvNDPTPGNHEG1726-49-91 09:36:00 Test Item Value Reference Range Interpretation Comments Eosinophils # (test code 0.2 See_Comment [A utomated message] The = Eosinophils #) system whic h generated this result tra nsmitted reference range : <=0.5. The reference r boubacar was not used to int erpret this result as normal/abnormal . [facility] HospitalUiuddndMEXHVMNUFR7518-91-49 09:36:00 Test Item Value Reference Range Interpretation Comments Lymphocytes (test code = Lymphocytes) 26.1 20.0-40.0 [facility] HospitalFdykuzaYQDBOWDIDR1757-69-38 09:36:00 Test Item Value Reference Range Interpretation Comments Segs (test code = Segs) 59.3 45.0-75.0 [facility] HospitalOpxirmgJEIUZAZQSV5399-58-42 09:36:00 Test Item Value Reference Range Interpretation Comments Basophils (test code = 0.8 See_Comment [Aut omated message] The Basophils) system which ge nerated this result tra nsmitted reference range : <=1.0. The reference r boubacar was not used to int erpret this result as normal/abnormal . [facility] HospitalCbidiptBTGHIKUZGO7724-26-59 09:36:00 Test Item Value Reference Range Interpretation Comments Monocytes (test code = Monocytes) 10.5 2.0-12.0 [facility] HospitalDbeiesqHCAHAPWPRF8238-45-60 09:36:00 Test Item Value Reference Range Interpretation Comments Eosinophils (test code = 3.3 See_Comment [A utomated message] The Eosinophils) system which ge nerated this result tra nsmitted reference range : <=4.0. The reference r boubacar was not used to int erpret this result as normal/abnormal . [facility] HospitalSmqmnvfHWDKVDDKJX0744-17-56 09:36:00 Test Item Value Reference Range Interpretation Comments Segs-Bands # (test code = Segs-Bands #) 3.9 1.5-8.1 [facility] SIIQE8403-19-98 09:36:00 Test Item Value Reference Range Interpretation Comments Globulin (test code = Globulin) 4.4 2.7-4.2 [facility]2018-05-07 09:36:00 Test Item Value Reference Range Interpretation Comments A/G Ratio (test code = A/G Ratio) 0.6 1 0.7-1.6 [facility]2018-05-07 09:36:00 Test Item Value Reference Range Interpretation Comments B/C Ratio (test code = B/C Ratio) 17 1 6-25 [facility]2018-05-07 09:36:00 Test Item Value Reference Range Interpretation Comments AGAP (test code = AGAP) 11.3 10.0-20.0 [facility]2018-05-07 09:36:00 Test Item Value Reference Range Interpretation Comments eGFR (test code = eGFR) 134 [place] 743208-05-07 09:36:00 Test Item Value Reference Range Interpretation Comments Creatinine Lvl (test code = Creatinine 0.84 0.50-1.40 Lvl) [place] 743208-05-07 09:36:00 Test Item Value Reference Range Interpretation Comments Sodium Lvl (test code = Sodium Lvl) 142 135-145 [place] 743208-05-07 09:36:00 Test Item Value Reference Range Interpretation Comments Glucose Lvl (test code = Glucose Lvl) 99 70-99 [place] 743208-05-07 09:36:00 Test Item Value Reference Range Interpretation Comments BUN (test code = BUN) 14 7-22 [place] 743208-05-07 09:36:00 Test Item Value Reference Range Interpretation Comments Alk Phos (test code = Alk Phos) 79 39-136 [place] 743208-05-07 09:36:00 Test Item Value Reference Range Interpretation Comments Bili Total (test code = Bili Total) 0.3 0.2-1.3 [place] 743208-05-07 09:36:00 Test Item Value Reference Range Interpretation Comments AST (test code = AST) 14 See_Comment [Auto mated message] The system which ge nerated this result transmit lester reference range : <=37. The reference range was not used to interpr et this result as dany l/abnormal. [place] 743208-05-07 09:36:00 Test Item Value Reference Range Interpretation Comments ALT (test code = ALT) 43 See_Comment [Auto mated message] The system which ge nerated this result transmit lester reference range : <=65. The reference range was not used to interpr et this result as dany l/abnormal. [place] 743208-05-07 09:36:00 Test Item Value Reference Range Interpretation Comments Total Protein (test code = Total 7.1 6.4-8.4 Protein) [facility]2018-05-07 09:36:00 Test Item Value Reference Range Interpretation Comments Albumin Lvl (test code = Albumin Lvl) 2.7 3.5-5.0 [facility]2018-05-07 09:36:00 Test Item Value Reference Range Interpretation Comments Calcium Lvl (test code = Calcium Lvl) 9.2 8.5-10.5 [facility]2018-05-07 09:36:00 Test Item Value Reference Range Interpretation Comments CO2 (test code = CO2) 21 24-32 [place] 743208-05-07 09:36:00 Test Item Value Reference Range Interpretation Comments Potassium Lvl (test code = Potassium 4.3 3.5-5.1 Lvl) [place] 743208-05-07 09:36:00 Test Item Value Reference Range Interpretation Comments Chloride Lvl (test code = Chloride Lvl) 114 95-109 [facility] HospitalDirqlbfQULGLQFJFP6680-84-85 09:36:00 Test Item Value Reference Range Interpretation Comments MCHC (test code = MCHC) 32.5 32.0-36.0 [facility] HospitalTxqtiyyYQGPNEJUVS2990-73-97 09:36:00 Test Item Value Reference Range Interpretation Comments RDW (test code = RDW) 17.5 11.5-14.5 [facility] HospitalGkywihgJXZHYQHTQO8620-66-41 09:36:00 Test Item Value Reference Range Interpretation Comments Platelet (test code = Platelet) 400 133-450 [facility] HospitalTyvvqraOWFLEBRXOS4739-31-37 09:36:00 Test Item Value Reference Range Interpretation Comments MPV (test code = MPV) 8.5 7.4-10.4 [facility] HospitalHqxktvfXRGAHEYNTB6209-79-05 09:36:00 Test Item Value Reference Range Interpretation Comments WBC (test code = WBC) 6.6 3.7-10.4 [facility] HospitalTdbckxqPZKMSSQGRG6969-22-78 09:36:00 Test Item Value Reference Range Interpretation Comments RBC (test code = RBC) 5.17 4.70-6.10 [facility] HospitalTahhueiUXPBXGBULL4984-77-97 09:36:00 Test Item Value Reference Range Interpretation Comments MCV (test code = MCV) 86.1 80.0-94.0 [place] 996948-05-07 09:36:00 Test Item Value Reference Range Interpretation Comments Hct (test code = Hct) 44.5 42.0-54.0 [facility] HospitalFmubjmgJILQMQJFJL7659-53-11 09:36:00 Test Item Value Reference Range Interpretation Comments MCH (test code = MCH) 28.0 pg 27.0-31.0 [facility] HospitalYfyvrqkWOUDBNYKQP4626-52-65 09:36:00 Test Item Value Reference Range Interpretation Comments Hgb (test code = Hgb) 14.5 14.0-18.0 [facility] HospitalFkxdysuDVKFWTBGRB0084-84-12 09:36:00 Test Item Value Reference Range Interpretation Comments Lymphocytes # (test code = Lymphocytes 1.7 1.0-5.5 #) [facility] HospitalHhrauzjCGWBYIHXLZ7853-51-91 09:36:00 Test Item Value Reference Range Interpretation Comments Monocytes # (test code 0.7 See_Comment [Aut omated message] The = Monocytes #) system which generated this result tra nsmitted reference range : <=0.8. The reference r boubacar was not used to int erpret this result as normal/abnormal . [facility] HospitalDvsmlwjNDQZWIFCJO8542-74-97 09:36:00 Test Item Value Reference Range Interpretation Comments Eosinophils # (test code 0.2 See_Comment [A utomated message] The = Eosinophils #) system whic h generated this result tra nsmitted reference range : <=0.5. The reference r boubacar was not used to int erpret this result as normal/abnormal . [facility] HospitalAnecmswVISEVVHRJC8103-56-34 09:36:00 Test Item Value Reference Range Interpretation Comments Lymphocytes (test code = Lymphocytes) 26.1 20.0-40.0 [facility] HospitalEpxbmzmWUIUUVRLBK1936-10-73 09:36:00 Test Item Value Reference Range Interpretation Comments Segs (test code = Segs) 59.3 45.0-75.0 [facility] HospitalCmlqkizLWLIFPPQYO7755-61-81 09:36:00 Test Item Value Reference Range Interpretation Comments Basophils (test code = 0.8 See_Comment [Aut omated message] The Basophils) system which ge nerated this result tra nsmitted reference range : <=1.0. The reference r boubacar was not used to int erpret this result as normal/abnormal . [facility] HospitalCibndmkTATVJVWNMG1411-83-51 09:36:00 Test Item Value Reference Range Interpretation Comments Monocytes (test code = Monocytes) 10.5 2.0-12.0 [facility] HospitalLdsrdtlFEHNYWRLJS5116-03-16 09:36:00 Test Item Value Reference Range Interpretation Comments Eosinophils (test code = 3.3 See_Comment [A utomated message] The Eosinophils) system which ge nerated this result tra nsmitted reference range : <=4.0. The reference r boubacar was not used to int erpret this result as normal/abnormal . [place] [address]-05-07 09:36:00 Test Item Value Reference Range Interpretation Comments Segs-Bands # (test code = Segs-Bands #) 3.9 1.5-8.1 [place] 743208-05-07 09:36:00 Test Item Value Reference Range Interpretation Comments Globulin (test code = Globulin) 4.4 2.7-4.2 [facility]2018-05-07 09:36:00 Test Item Value Reference Range Interpretation Comments A/G Ratio (test code = A/G Ratio) 0.6 1 0.7-1.6 [place] 743208-05-07 09:36:00 Test Item Value Reference Range Interpretation Comments B/C Ratio (test code = B/C Ratio) 17 1 6-25 [facility]2018-05-07 09:36:00 Test Item Value Reference Range Interpretation Comments AGAP (test code = AGAP) 11.3 10.0-20.0 [facility]2018-05-07 09:36:00 Test Item Value Reference Range Interpretation Comments eGFR (test code = eGFR) 134 [facility]2018-05-07 09:36:00 Test Item Value Reference Range Interpretation Comments Creatinine Lvl (test code = Creatinine 0.84 0.50-1.40 Lvl) [facility]2018-05-07 09:36:00 Test Item Value Reference Range Interpretation Comments Sodium Lvl (test code = Sodium Lvl) 142 135-145 [place] 743208-05-07 09:36:00 Test Item Value Reference Range Interpretation Comments Glucose Lvl (test code = Glucose Lvl) 99 70-99 [facility]2018-05-07 09:36:00 Test Item Value Reference Range Interpretation Comments BUN (test code = BUN) 14 7-22 [facility]2018-05-07 09:36:00 Test Item Value Reference Range Interpretation Comments Alk Phos (test code = Alk Phos) 79 39-136 [facility]2018-05-07 09:36:00 Test Item Value Reference Range Interpretation Comments Bili Total (test code = Bili Total) 0.3 0.2-1.3 [facility]2018-05-07 09:36:00 Test Item Value Reference Range Interpretation Comments AST (test code = AST) 14 See_Comment [Auto mated message] The system which ge nerated this result transmit lester reference range : <=37. The reference range was not used to interpr et this result as dany l/abnormal. [facility]2018-05-07 09:36:00 Test Item Value Reference Range Interpretation Comments ALT (test code = ALT) 43 See_Comment [Auto mated message] The system which ge nerated this result transmit lester reference range : <=65. The reference range was not used to interpr et this result as dany l/abnormal. [facility]2018-05-07 09:36:00 Test Item Value Reference Range Interpretation Comments Total Protein (test code = Total 7.1 6.4-8.4 Protein) [facility]2018-05-07 09:36:00 Test Item Value Reference Range Interpretation Comments Albumin Lvl (test code = Albumin Lvl) 2.7 3.5-5.0 [facility]2018-05-07 09:36:00 Test Item Value Reference Range Interpretation Comments Calcium Lvl (test code = Calcium Lvl) 9.2 8.5-10.5 [facility]2018-05-07 09:36:00 Test Item Value Reference Range Interpretation Comments CO2 (test code = CO2) 21 24-32 [facility]2018-05-07 09:36:00 Test Item Value Reference Range Interpretation Comments Potassium Lvl (test code = Potassium 4.3 3.5-5.1 Lvl) [facility]2018-05-07 09:36:00 Test Item Value Reference Range Interpretation Comments Chloride Lvl (test code = Chloride Lvl) 114 95-109 [facility] HospitalMnmtbvvWSWLHCTYHA6868-38-54 09:36:00 Test Item Value Reference Range Interpretation Comments MCHC (test code = MCHC) 32.5 32.0-36.0 [facility] HospitalOgfczrgHLEUXHDBVD1430-51-30 09:36:00 Test Item Value Reference Range Interpretation Comments RDW (test code = RDW) 17.5 11.5-14.5 [facility] HospitalJzaijjsREBWLBUJUI2635-68-65 09:36:00 Test Item Value Reference Range Interpretation Comments Platelet (test code = Platelet) 400 133-450 [facility] HospitalAahvxlpCNGCSVJRXR9899-39-60 09:36:00 Test Item Value Reference Range Interpretation Comments MPV (test code = MPV) 8.5 7.4-10.4 [facility] HospitalZelnpppALIAWECEID7962-78-18 09:36:00 Test Item Value Reference Range Interpretation Comments WBC (test code = WBC) 6.6 3.7-10.4 [facility] HospitalMowyeugCQQMSMXMYH8119-05-45 09:36:00 Test Item Value Reference Range Interpretation Comments RBC (test code = RBC) 5.17 4.70-6.10 [facility] HospitalHzxuijiEVQXGVLALS6950-47-03 09:36:00 Test Item Value Reference Range Interpretation Comments MCV (test code = MCV) 86.1 80.0-94.0 [facility] HospitalRrrjbyiAUCAIJIUUQ0592-97-36 09:36:00 Test Item Value Reference Range Interpretation Comments Hct (test code = Hct) 44.5 42.0-54.0 [facility] HospitalIbchhhnLITEXFOVEU7447-53-55 09:36:00 Test Item Value Reference Range Interpretation Comments MCH (test code = MCH) 28.0 pg 27.0-31.0 [facility] HospitalXjnnwkkLSJMOMFZSW0044-16-11 09:36:00 Test Item Value Reference Range Interpretation Comments Hgb (test code = Hgb) 14.5 14.0-18.0 [facility] HospitalLnrdqxeKGUYFTRTWZ4821-30-31 09:36:00 Test Item Value Reference Range Interpretation Comments Lymphocytes # (test code = Lymphocytes 1.7 1.0-5.5 #) [facility] HospitalSysroslSZWVTCIUGQ0068-18-28 09:36:00 Test Item Value Reference Range Interpretation Comments Monocytes # (test code 0.7 See_Comment [Aut omated message] The = Monocytes #) system which generated this result tra nsmitted reference range : <=0.8. The reference r boubacar was not used to int erpret this result as normal/abnormal . [facility] HospitalLehvvkeQGZIWDHAPU9737-14-09 09:36:00 Test Item Value Reference Range Interpretation Comments Eosinophils # (test code 0.2 See_Comment [A utomated message] The = Eosinophils #) system whic h generated this result tra nsmitted reference range : <=0.5. The reference r boubacar was not used to int erpret this result as normal/abnormal . [facility] HospitalSbwviblJINDRJOWLV0855-05-19 09:36:00 Test Item Value Reference Range Interpretation Comments Lymphocytes (test code = Lymphocytes) 26.1 20.0-40.0 [facility] HospitalGxgqapfBNSOSJYRLE9172-94-54 09:36:00 Test Item Value Reference Range Interpretation Comments Segs (test code = Segs) 59.3 45.0-75.0 [facility] HospitalWhvtlpyLGQHOMOKXF0936-62-13 09:36:00 Test Item Value Reference Range Interpretation Comments Basophils (test code = 0.8 See_Comment [Aut omated message] The Basophils) system which ge nerated this result tra nsmitted reference range : <=1.0. The reference r boubacar was not used to int erpret this result as normal/abnormal . [facility] HospitalGgmfocmFWLNDJCPDQ4983-67-21 09:36:00 Test Item Value Reference Range Interpretation Comments Monocytes (test code = Monocytes) 10.5 2.0-12.0 [facility] HospitalUrpbuieWEDVNAUSIB7894-58-48 09:36:00 Test Item Value Reference Range Interpretation Comments Eosinophils (test code = 3.3 See_Comment [A utomated message] The Eosinophils) system which ge nerated this result tra nsmitted reference range : <=4.0. The reference r boubacar was not used to int erpret this result as normal/abnormal . [facility]BblzrzrZOTZWGMLEV6650-68-32 09:36:00 Test Item Value Reference Range Interpretation Comments Segs-Bands # (test code = Segs-Bands #) 3.9 1.5-8.1 [facility] BrookJob[facility] BPDYJ5973-80-08 09:36:00 Test Item Value Reference Range Interpretation Comments Globulin (test code = Globulin) 4.4 2.7-4.2 [facility] REGCF7996-92-11 09:36:00 Test Item Value Reference Range Interpretation Comments A/G Ratio (test code = A/G Ratio) 0.6 1 0.7-1.6 [place] 743208-05-07 09:36:00 Test Item Value Reference Range Interpretation Comments B/C Ratio (test code = B/C Ratio) 17 1 6-25 [place] [address]-05-07 09:36:00 Test Item Value Reference Range Interpretation Comments AGAP (test code = AGAP) 11.3 10.0-20.0 [place] 743208-05-07 09:36:00 Test Item Value Reference Range Interpretation Comments eGFR (test code = eGFR) 134 [place] 743208-05-07 09:36:00 Test Item Value Reference Range Interpretation Comments Creatinine Lvl (test code = Creatinine 0.84 0.50-1.40 Lvl) [place] 743208-05-07 09:36:00 Test Item Value Reference Range Interpretation Comments Sodium Lvl (test code = Sodium Lvl) 142 135-145 [place] 743208-05-07 09:36:00 Test Item Value Reference Range Interpretation Comments Glucose Lvl (test code = Glucose Lvl) 99 70-99 [place] 743208-05-07 09:36:00 Test Item Value Reference Range Interpretation Comments BUN (test code = BUN) 14 7-22 [place] 743208-05-07 09:36:00 Test Item Value Reference Range Interpretation Comments Alk Phos (test code = Alk Phos) 79 39-136 [place] 743208-05-07 09:36:00 Test Item Value Reference Range Interpretation Comments Bili Total (test code = Bili Total) 0.3 0.2-1.3 [place] 743208-05-07 09:36:00 Test Item Value Reference Range Interpretation Comments AST (test code = AST) 14 See_Comment [Auto mated message] The system which ge nerated this result transmit lester reference range : <=37. The reference range was not used to interpr et this result as dany l/abnormal. [place] 743208-05-07 09:36:00 Test Item Value Reference Range Interpretation Comments ALT (test code = ALT) 43 See_Comment [Auto mated message] The system which ge nerated this result transmit lester reference range : <=65. The reference range was not used to interpr et this result as dany l/abnormal. [facility]2018-05-07 09:36:00 Test Item Value Reference Range Interpretation Comments Total Protein (test code = Total 7.1 6.4-8.4 Protein) [place] 743208-05-07 09:36:00 Test Item Value Reference Range Interpretation Comments Albumin Lvl (test code = Albumin Lvl) 2.7 3.5-5.0 [facility]2018-05-07 09:36:00 Test Item Value Reference Range Interpretation Comments Calcium Lvl (test code = Calcium Lvl) 9.2 8.5-10.5 [facility]2018-05-07 09:36:00 Test Item Value Reference Range Interpretation Comments CO2 (test code = CO2) 21 24-32 [facility]2018-05-07 09:36:00 Test Item Value Reference Range Interpretation Comments Potassium Lvl (test code = Potassium 4.3 3.5-5.1 Lvl) [facility]2018-05-07 09:36:00 Test Item Value Reference Range Interpretation Comments Chloride Lvl (test code = Chloride Lvl) 114 95-109 [facility] HospitalMcndqkbUGWUAAGPIP2512-15-19 09:36:00 Test Item Value Reference Range Interpretation Comments MCHC (test code = MCHC) 32.5 32.0-36.0 [facility] HospitalPakqnyaZHVGCMDFGG6454-73-62 09:36:00 Test Item Value Reference Range Interpretation Comments RDW (test code = RDW) 17.5 11.5-14.5 [facility] HospitalXarlqqfCHNZBJLTXY8103-25-87 09:36:00 Test Item Value Reference Range Interpretation Comments Platelet (test code = Platelet) 400 133-450 [facility] HospitalCakzlpjJEMMNNPBKA7020-46-56 09:36:00 Test Item Value Reference Range Interpretation Comments MPV (test code = MPV) 8.5 7.4-10.4 [facility] HospitalClnyncyUQXEJPOIDF8385-12-29 09:36:00 Test Item Value Reference Range Interpretation Comments WBC (test code = WBC) 6.6 3.7-10.4 [facility] HospitalXswvlemSHSVMLOKZF4403-16-84 09:36:00 Test Item Value Reference Range Interpretation Comments RBC (test code = RBC) 5.17 4.70-6.10 [facility] HospitalYxujnalGPHNYIQHQG2275-55-40 09:36:00 Test Item Value Reference Range Interpretation Comments MCV (test code = MCV) 86.1 80.0-94.0 [facility] HospitalRjkiuffCUAZVCFYLX4324-34-87 09:36:00 Test Item Value Reference Range Interpretation Comments Hct (test code = Hct) 44.5 42.0-54.0 [facility] HospitalTzdamqjAVWJEGOFEJ3348-84-75 09:36:00 Test Item Value Reference Range Interpretation Comments MCH (test code = MCH) 28.0 pg 27.0-31.0 [facility] HospitalPqjmspcETSVHJWYRT0026-50-20 09:36:00 Test Item Value Reference Range Interpretation Comments Hgb (test code = Hgb) 14.5 14.0-18.0 [facility] HospitalFzpxbdiVSSWVAJTSP1292-12-27 09:36:00 Test Item Value Reference Range Interpretation Comments Lymphocytes # (test code = Lymphocytes 1.7 1.0-5.5 #) [facility] HospitalChxxnyrXPWDOSOBPZ9531-47-85 09:36:00 Test Item Value Reference Range Interpretation Comments Monocytes # (test code 0.7 See_Comment [Aut omated message] The = Monocytes #) system which generated this result tra nsmitted reference range : <=0.8. The reference r boubacar was not used to int erpret this result as normal/abnormal . [facility] HospitalLsngcklCWMAEREGCE7155-71-28 09:36:00 Test Item Value Reference Range Interpretation Comments Eosinophils # (test code 0.2 See_Comment [A utomated message] The = Eosinophils #) system whic h generated this result tra nsmitted reference range : <=0.5. The reference r boubacar was not used to int erpret this result as normal/abnormal . [facility] HospitalGdsyclfNTFQXTHRRA4351-07-12 09:36:00 Test Item Value Reference Range Interpretation Comments Lymphocytes (test code = Lymphocytes) 26.1 20.0-40.0 [facility] HospitalGoqgqgzXWZIDCHSTR2898-11-94 09:36:00 Test Item Value Reference Range Interpretation Comments Segs (test code = Segs) 59.3 45.0-75.0 [facility] HospitalMmrorhtYVFLZWTREJ3886-49-71 09:36:00 Test Item Value Reference Range Interpretation Comments Basophils (test code = 0.8 See_Comment [Aut omated message] The Basophils) system which ge nerated this result tra nsmitted reference range : <=1.0. The reference r boubacar was not used to int erpret this result as normal/abnormal . [facility] HospitalYglhwmlLGGNBSSUYA2576-06-44 09:36:00 Test Item Value Reference Range Interpretation Comments Monocytes (test code = Monocytes) 10.5 2.0-12.0 [facility] HospitalZxwftigWFROAYLTGL5349-35-93 09:36:00 Test Item Value Reference Range Interpretation Comments Eosinophils (test code = 3.3 See_Comment [A utomated message] The Eosinophils) system which ge nerated this result tra nsmitted reference range : <=4.0. The reference r boubacar was not used to int erpret this result as normal/abnormal . [facility] HospitalKogzuymTRHPJJLHAC7009-75-10 09:36:00 Test Item Value Reference Range Interpretation Comments Segs-Bands # (test code = Segs-Bands #) 3.9 1.5-8.1 [place] [id number] 21:02:00 Test Item Value Reference Range Interpretation Comments Vanco Tr TND (test code = Vanco Tr 15:30pm TND) [facility]TtcsfubYNOHVOLHEV2149-31-59 21:02:00 Test Item Value Reference Range Interpretation Comments Vanco Tr (test code = Vanco Tr) 9.[address] [facility] HospitalKucmqijACOVROKAXI6770-34-07 21:02:00 Test Item Value Reference Range Interpretation Comments Vanco Tr TND (test code = Vanco Tr 15:30pm TND) [facility] CenterCbooglaWZLQQTSYCO6228-49-36 21:02:00 Test Item Value Reference Range Interpretation Comments Vanco Tr (test code = Vanco Tr) 9.1 [facility]BgshyxnVHAFXLEJLQ6836-22-44 21:02:00 Test Item Value Reference Range Interpretation Comments Vanco Tr TND (test code = Vanco Tr 15:30pm TND) [facility] HospitalZayevmiFTDUEMLJGE5420-69-01 21:02:00 Test Item Value Reference Range Interpretation Comments Vanco Tr (test code = Vanco Tr) 9.1 [facility] CenterCyfbamrVHZAIZJAYM6748-43-93 21:02:00 Test Item Value Reference Range Interpretation Comments Vanco Tr TND (test code = Vanco Tr 15:30pm TND) [facility]inteKfsqutsYBESKYBQGI9313-55-75 21:02:00 Test Item Value Reference Range Interpretation Comments Vanco Tr (test code = Vanco Tr) 9.1 [facility]inteHdovtzjZSCWXUDXTH0143-29-31 21:02:00 Test Item Value Reference Range Interpretation Comments Vanco Tr TND (test code = Vanco Tr 15:30pm TND) [facility]inteCobfcmdFXEMTYEWOR5907-28-32 21:02:00 Test Item Value Reference Range Interpretation Comments Vanco Tr (test code = Vanco Tr) 9.1 [facility] PointeGalezipINDXFSBXTZ8092-69-67 21:02:00 Test Item Value Reference Range Interpretation Comments Vanco Tr TND (test code = Vanco Tr 15:30pm TND) [facility] PointeMtygabhWUXPEDEPWN3994-53-88 21:02:00 Test Item Value Reference Range Interpretation Comments Vanco Tr (test code = Vanco Tr) 9.1 [facility] PointeUyfgbquJLPVWXKFEX4796-64-41 21:02:00 Test Item Value Reference Range Interpretation Comments Vanco Tr TND (test code = Vanco Tr 15:30pm TND) [facility] PointeMqaudcxTVSCDJTEVN0361-11-95 21:02:00 Test Item Value Reference Range Interpretation Comments Vanco Tr (test code = Vanco Tr) 9.1 [facility] Imindi BTXBP4977-40-20 07:07:00 Test Item Value Reference Range Interpretation Comments Glucose Lvl (test code = Glucose Lvl) 74 70-99 [facility]inteAud[facility] Verify WOLLO5726-32-74 07:07:00 Test Item Value Reference Range Interpretation Comments BUN (test code = BUN) 12 7-22 [facility] [id number] 07:07:00 Test Item Value Reference Range Interpretation Comments Creatinine Lvl (test code = Creatinine 0.75 0.50-1.40 Lvl) [facility]inte[facility] ISVVT9610-24-28 07:07:00 Test Item Value Reference Range Interpretation Comments eGFR (test code = eGFR) 140 [facility] ENFYS0598-13-08 07:07:00 Test Item Value Reference Range Interpretation Comments Albumin Lvl (test code = Albumin Lvl) 2.9 3.5-5.0 [place] 743208-05-06 07:07:00 Test Item Value Reference Range Interpretation Comments Globulin (test code = Globulin) 4.4 2.7-4.2 [place] 743208-05-06 07:07:00 Test Item Value Reference Range Interpretation Comments A/G Ratio (test code = A/G Ratio) 0.7 1 0.7-1.6 [place] 743208-05-06 07:07:00 Test Item Value Reference Range Interpretation Comments Bili Total (test code = Bili Total) 0.4 0.2-1.3 [place] [address]-05-06 07:07:00 Test Item Value Reference Range Interpretation Comments Alk Phos (test code = Alk Phos) 71 39-136 [place] 743208-05-06 07:07:00 Test Item Value Reference Range Interpretation Comments AST (test code = AST) 15 See_Comment [Auto mated message] The system which ge nerated this result transmit lester reference range : <=37. The reference range was not used to interpr et this result as dany l/abnormal. [place] 743208-05-06 07:07:00 Test Item Value Reference Range Interpretation Comments ALT (test code = ALT) 28 See_Comment [Auto mated message] The system which ge nerated this result transmit lester reference range : <=65. The reference range was not used to interpr et this result as dany l/abnormal. [facility]2018-05-06 07:07:00 Test Item Value Reference Range Interpretation Comments Potassium Lvl (test code = Potassium 4.4 3.5-5.1 Lvl) [facility]2018-05-06 07:07:00 Test Item Value Reference Range Interpretation Comments Sodium Lvl (test code = Sodium Lvl) 147 135-145 [place] 743208-05-06 07:07:00 Test Item Value Reference Range Interpretation Comments CO2 (test code = CO2) 25 24-32 [place] 743208-05-06 07:07:00 Test Item Value Reference Range Interpretation Comments Chloride Lvl (test code = Chloride Lvl) 114 95-109 [place] 743208-05-06 07:07:00 Test Item Value Reference Range Interpretation Comments B/C Ratio (test code = B/C Ratio) 16 1 6-25 [facility]2018-05-06 07:07:00 Test Item Value Reference Range Interpretation Comments Calcium Lvl (test code = Calcium Lvl) 8.7 8.5-10.5 [facility]2018-05-06 07:07:00 Test Item Value Reference Range Interpretation Comments AGAP (test code = AGAP) 12.4 10.0-20.0 [facility]2018-05-06 07:07:00 Test Item Value Reference Range Interpretation Comments Total Protein (test code = Total 7.3 6.4-8.4 Protein) [facility] HospitalJqmkfwvKLGSAAFIMR1695-62-15 07:07:00 Test Item Value Reference Range Interpretation Comments Platelet (test code = Platelet) 345 133-450 [facility] HospitalKyazwclPFHDKVCUBN8720-67-18 07:07:00 Test Item Value Reference Range Interpretation Comments MPV (test code = MPV) 8.7 7.4-10.4 [facility] HospitalJipzgwhQJJSRTSNMV2047-03-64 07:07:00 Test Item Value Reference Range Interpretation Comments WBC (test code = WBC) 6.9 3.7-10.4 [facility] HospitalXrlcmzoFRRNYEEWHM6368-75-86 07:07:00 Test Item Value Reference Range Interpretation Comments RBC (test code = RBC) 5.30 4.70-6.10 [facility] HospitalZgxzdcuXGCTHUURAB6499-21-67 07:07:00 Test Item Value Reference Range Interpretation Comments MCHC (test code = MCHC) 32.8 32.0-36.0 [facility] HospitalQucccxpQKEIJXHZXW0581-20-74 07:07:00 Test Item Value Reference Range Interpretation Comments MCH (test code = MCH) 27.9 pg 27.0-31.0 [facility] HospitalOdxcykqQKGNHASSGS9053-48-49 07:07:00 Test Item Value Reference Range Interpretation Comments Hgb (test code = Hgb) 14.8 14.0-18.0 [facility] HospitalIzaadqoZZMWNWBHSE4817-82-24 07:07:00 Test Item Value Reference Range Interpretation Comments MCV (test code = MCV) 85.0 80.0-94.0 [place] 996948-05-06 07:07:00 Test Item Value Reference Range Interpretation Comments Hct (test code = Hct) 45.1 42.0-54.0 [facility] HospitalSakiinkSNTFGDKHEA3508-10-67 07:07:00 Test Item Value Reference Range Interpretation Comments RDW (test code = RDW) 17.5 11.5-14.5 [facility] HospitalQmupilcKGLRTRVJNI8263-32-56 07:07:00 Test Item Value Reference Range Interpretation Comments Eosinophils # (test code 0.2 See_Comment [A utomated message] The = Eosinophils #) system [facility] generated this result tra nsmitted reference range : <=0.5. The reference r boubacar was not used to int erpret this result as normal/abnormal . [facility] HospitalThrsjvrXQCLTOZSVF5765-57-75 07:07:00 Test Item Value Reference Range Interpretation Comments Lymphocytes # (test code = Lymphocytes 2.0 1.0-5.5 #) [facility] HospitalEvmfsdmGXSMHKUCWO8498-14-54 07:07:00 Test Item Value Reference Range Interpretation Comments Monocytes # (test code 0.7 See_Comment [Aut omated message] The = Monocytes #) system which generated this result tra nsmitted reference range : <=0.8. The reference r boubacar was not used to int erpret this result as normal/abnormal . [facility] HospitalHyxpfehBTJTAVMQYP6345-70-58 07:07:00 Test Item Value Reference Range Interpretation Comments Eosinophils (test code = 2.4 See_Comment [A utomated message] The Eosinophils) system which ge nerated this result tra nsmitted reference range : <=4.0. The reference r boubacar was not used to int erpret this result as normal/abnormal . [facility] HospitalZkdgyoiQSEXRICCTO5648-06-79 07:07:00 Test Item Value Reference Range Interpretation Comments Basophils (test code = 0.6 See_Comment [Aut omated message] The Basophils) system which ge nerated this result tra nsmitted reference range : <=1.0. The reference r boubacar was not used to int erpret this result as normal/abnormal . [facility] HospitalWbjeeidCCFCKZGASC2427-67-10 07:07:00 Test Item Value Reference Range Interpretation Comments Segs-Bands # (test code = Segs-Bands #) 4.0 1.5-8.1 [facility] HospitalRbdqwekWOVTYLWSIZ9813-08-79 07:07:00 Test Item Value Reference Range Interpretation Comments Monocytes (test code = Monocytes) 10.4 2.0-12.0 [facility] HospitalWeuqmytCCSFTKXFOD0321-24-32 07:07:00 Test Item Value Reference Range Interpretation Comments RBC Morph (test code = Normal (11/17/17 2:07 AM) RBC Morph) [facility] HospitalKbnxaycCHPNDLEKFD4659-96-31 07:07:00 Test Item Value Reference Range Interpretation Comments Segs (test code = Segs) 58.1 45.0-75.0 [facility] HospitalQyebcpbIDRGZJBZSC3915-87-22 07:07:00 Test Item Value Reference Range Interpretation Comments Plt Morph (test code = Normal (11/17/17 2:07 AM) Plt Morph) [facility] HospitalXyrjlqgUTIFSFIINS1284-51-96 07:07:00 Test Item Value Reference Range Interpretation Comments Lymphocytes (test code = Lymphocytes) 28.5 20.0-40.0 [facility]2018-05-06 07:07:00 Test Item Value Reference Range Interpretation Comments Glucose Lvl (test code = Glucose Lvl) 74 70-99 [facility]2018-05-06 07:07:00 Test Item Value Reference Range Interpretation Comments BUN (test code = BUN) 12 7-22 [facility]2018-05-06 07:07:00 Test Item Value Reference Range Interpretation Comments Creatinine Lvl (test code = Creatinine 0.75 0.50-1.40 Lvl) [facility]2018-05-06 07:07:00 Test Item Value Reference Range Interpretation Comments eGFR (test code = eGFR) 140 [facility]2018-05-06 07:07:00 Test Item Value Reference Range Interpretation Comments Albumin Lvl (test code = Albumin Lvl) 2.9 3.5-5.0 [facility]2018-05-06 07:07:00 Test Item Value Reference Range Interpretation Comments Globulin (test code = Globulin) 4.4 2.7-4.2 [place] 743208-05-06 07:07:00 Test Item Value Reference Range Interpretation Comments A/G Ratio (test code = A/G Ratio) 0.7 1 0.7-1.6 [facility]2018-05-06 07:07:00 Test Item Value Reference Range Interpretation Comments Bili Total (test code = Bili Total) 0.4 0.2-1.3 [facility]2018-05-06 07:07:00 Test Item Value Reference Range Interpretation Comments Alk Phos (test code = Alk Phos) 71 39-136 [facility]2018-05-06 07:07:00 Test Item Value Reference Range Interpretation Comments AST (test code = AST) 15 See_Comment [Auto mated message] The system which ge nerated this result transmit lester reference range : <=37. The reference range was not used to interpr et this result as dany l/abnormal. [place] 743208-05-06 07:07:00 Test Item Value Reference Range Interpretation Comments ALT (test code = ALT) 28 See_Comment [Auto mated message] The system which ge nerated this result transmit lester reference range : <=65. The reference range was not used to interpr et this result as dany l/abnormal. [place] 743208-05-06 07:07:00 Test Item Value Reference Range Interpretation Comments Potassium Lvl (test code = Potassium 4.4 3.5-5.1 Lvl) [place] 743208-05-06 07:07:00 Test Item Value Reference Range Interpretation Comments Sodium Lvl (test code = Sodium Lvl) 147 135-145 [place] 743208-05-06 07:07:00 Test Item Value Reference Range Interpretation Comments CO2 (test code = CO2) 25 24-32 [facility]2018-05-06 07:07:00 Test Item Value Reference Range Interpretation Comments Chloride Lvl (test code = Chloride Lvl) 114 95-109 [facility]2018-05-06 07:07:00 Test Item Value Reference Range Interpretation Comments B/C Ratio (test code = B/C Ratio) 16 1 6-25 [place] 743208-05-06 07:07:00 Test Item Value Reference Range Interpretation Comments Calcium Lvl (test code = Calcium Lvl) 8.7 8.5-10.5 [place] 743208-05-06 07:07:00 Test Item Value Reference Range Interpretation Comments AGAP (test code = AGAP) 12.4 10.0-20.0 [place] 743208-05-06 07:07:00 Test Item Value Reference Range Interpretation Comments Total Protein (test code = Total 7.3 6.4-8.4 Protein) [facility] HospitalAgoputyYOLZGGVGBY5501-34-65 07:07:00 Test Item Value Reference Range Interpretation Comments Platelet (test code = Platelet) 345 133-450 [facility] HospitalXmlqziiOTIELZLIDF3532-88-72 07:07:00 Test Item Value Reference Range Interpretation Comments MPV (test code = MPV) 8.7 7.4-10.4 [facility] HospitalAeigwtcFVSBLMVFMY0832-36-15 07:07:00 Test Item Value Reference Range Interpretation Comments WBC (test code = WBC) 6.9 3.7-10.4 [place] [address]-05-06 07:07:00 Test Item Value Reference Range Interpretation Comments RBC (test code = RBC) 5.30 4.70-6.10 [facility] HospitalGliimclHVNIFPOOVD3753-05-42 07:07:00 Test Item Value Reference Range Interpretation Comments MCHC (test code = MCHC) 32.8 32.0-36.0 [facility] HospitalPwhamzbMHZJUKMZGR4758-78-22 07:07:00 Test Item Value Reference Range Interpretation Comments MCH (test code = MCH) 27.9 pg 27.0-31.0 [facility] HospitalCtlmljyXLTRYWZQGM7523-26-06 07:07:00 Test Item Value Reference Range Interpretation Comments Hgb (test code = Hgb) 14.8 14.0-18.0 [facility] HospitalTzfhsndJMNOLVHRSJ0477-08-39 07:07:00 Test Item Value Reference Range Interpretation Comments MCV (test code = MCV) 85.0 80.0-94.0 [facility] HospitalDmptxxmBIMOKSLOBB1291-28-38 07:07:00 Test Item Value Reference Range Interpretation Comments Hct (test code = Hct) 45.1 42.0-54.0 [facility] HospitalRuubqwnKVKDNXVKOK2089-35-22 07:07:00 Test Item Value Reference Range Interpretation Comments RDW (test code = RDW) 17.5 11.5-14.5 [facility] HospitalHrsafkqAFGMKELNSU0912-22-24 07:07:00 Test Item Value Reference Range Interpretation Comments Eosinophils # (test code 0.2 See_Comment [A utomated message] The = Eosinophils #) system whic h generated this result tra nsmitted reference range : <=0.5. The reference r boubacar was not used to int erpret this result as normal/abnormal . [facility] HospitalHpeicbrURAGFXNYUE9917-63-20 07:07:00 Test Item Value Reference Range Interpretation Comments Lymphocytes # (test code = Lymphocytes 2.0 1.0-5.5 #) [facility] HospitalRlyteajKGTPEIDGHU3350-27-90 07:07:00 Test Item Value Reference Range Interpretation Comments Monocytes # (test code 0.7 See_Comment [Aut omated message] The = Monocytes #) system which generated this result tra nsmitted reference range : <=0.8. The reference r boubacar was not used to int erpret this result as normal/abnormal . [facility] HospitalHgoejosUUCTSZSMRG2636-63-64 07:07:00 Test Item Value Reference Range Interpretation Comments Eosinophils (test code = 2.4 See_Comment [A utomated message] The Eosinophils) system which ge nerated this result tra nsmitted reference range : <=4.0. The reference r boubacar was not used to int erpret this result as normal/abnormal . [facility] HospitalBqvkurnLQGGTUZDLV7532-56-93 07:07:00 Test Item Value Reference Range Interpretation Comments Basophils (test code = 0.6 See_Comment [Aut omated message] The Basophils) system which ge nerated this result tra nsmitted reference range : <=1.0. The reference r boubacar was not used to int erpret this result as normal/abnormal . [facility] HospitalEfchswiSARQDTZRXP4150-88-09 07:07:00 Test Item Value Reference Range Interpretation Comments Segs-Bands # (test code = Segs-Bands #) 4.0 1.5-8.1 [facility] HospitalOpzxjacGQVRDSMEGP5260-62-78 07:07:00 Test Item Value Reference Range Interpretation Comments Monocytes (test code = Monocytes) 10.4 2.0-12.0 [facility] HospitalWboobgfUICYRXEVYQ7634-55-62 07:07:00 Test Item Value Reference Range Interpretation Comments RBC Morph (test code = Normal (11/17/17 2:07 AM) RBC Morph) [facility] HospitalVcedrouXLGMJBRJAB5682-41-93 07:07:00 Test Item Value Reference Range Interpretation Comments Segs (test code = Segs) 58.1 45.0-75.0 [facility] HospitalEltqutqOBPFELPZJV7756-65-21 07:07:00 Test Item Value Reference Range Interpretation Comments Plt Morph (test code = Normal (11/17/17 2:07 AM) Plt Morph) [facility] HospitalThdhvleYSVNUIEQQY0018-83-19 07:07:00 Test Item Value Reference Range Interpretation Comments Lymphocytes (test code = Lymphocytes) 28.5 20.0-40.0 [facility]2018-05-06 07:07:00 Test Item Value Reference Range Interpretation Comments Glucose Lvl (test code = Glucose Lvl) 74 70-99 [facility]2018-05-06 07:07:00 Test Item Value Reference Range Interpretation Comments BUN (test code = BUN) 12 7-22 [place] 743208-05-06 07:07:00 Test Item Value Reference Range Interpretation Comments Creatinine Lvl (test code = Creatinine 0.75 0.50-1.40 Lvl) [facility]2018-05-06 07:07:00 Test Item Value Reference Range Interpretation Comments eGFR (test code = eGFR) 140 [facility]2018-05-06 07:07:00 Test Item Value Reference Range Interpretation Comments Albumin Lvl (test code = Albumin Lvl) 2.9 3.5-5.0 [facility]2018-05-06 07:07:00 Test Item Value Reference Range Interpretation Comments Globulin (test code = Globulin) 4.4 2.7-4.2 [place] 743208-05-06 07:07:00 Test Item Value Reference Range Interpretation Comments A/G Ratio (test code = A/G Ratio) 0.7 1 0.7-1.6 [place] 743208-05-06 07:07:00 Test Item Value Reference Range Interpretation Comments Bili Total (test code = Bili Total) 0.4 0.2-1.3 [facility]2018-05-06 07:07:00 Test Item Value Reference Range Interpretation Comments Alk Phos (test code = Alk Phos) 71 39-136 [facility]2018-05-06 07:07:00 Test Item Value Reference Range Interpretation Comments AST (test code = AST) 15 See_Comment [Auto mated message] The system which ge nerated this result transmit lester reference range : <=37. The reference range was not used to interpr et this result as dany l/abnormal. [facility]2018-05-06 07:07:00 Test Item Value Reference Range Interpretation Comments ALT (test code = ALT) 28 See_Comment [Auto mated message] The system which ge nerated this result transmit lester reference range : <=65. The reference range was not used to interpr et this result as dany l/abnormal. [facility]2018-05-06 07:07:00 Test Item Value Reference Range Interpretation Comments Potassium Lvl (test code = Potassium 4.4 3.5-5.1 Lvl) [place] 743208-05-06 07:07:00 Test Item Value Reference Range Interpretation Comments Sodium Lvl (test code = Sodium Lvl) 147 135-145 [place] 743208-05-06 07:07:00 Test Item Value Reference Range Interpretation Comments CO2 (test code = CO2) 25 24-32 [place] 743208-05-06 07:07:00 Test Item Value Reference Range Interpretation Comments Chloride Lvl (test code = Chloride Lvl) 114 95-109 [facility]2018-05-06 07:07:00 Test Item Value Reference Range Interpretation Comments B/C Ratio (test code = B/C Ratio) 16 1 6-25 [place] 743208-05-06 07:07:00 Test Item Value Reference Range Interpretation Comments Calcium Lvl (test code = Calcium Lvl) 8.7 8.5-10.5 [facility]2018-05-06 07:07:00 Test Item Value Reference Range Interpretation Comments AGAP (test code = AGAP) 12.4 10.0-20.0 [facility]2018-05-06 07:07:00 Test Item Value Reference Range Interpretation Comments Total Protein (test code = Total 7.3 6.4-8.4 Protein) [facility] HospitalNuiufwxRXFKITPRNF7823-13-82 07:07:00 Test Item Value Reference Range Interpretation Comments Platelet (test code = Platelet) 345 133-450 [facility] HospitalRuwxlivTCWAUNTHJY8668-73-86 07:07:00 Test Item Value Reference Range Interpretation Comments MPV (test code = MPV) 8.7 7.4-10.4 [place] 996948-05-06 07:07:00 Test Item Value Reference Range Interpretation Comments WBC (test code = WBC) 6.9 3.7-10.4 [place] 996948-05-06 07:07:00 Test Item Value Reference Range Interpretation Comments RBC (test code = RBC) 5.30 4.70-6.10 [facility] HospitalTvuzglbJLMSFNYRAJ5843-18-15 07:07:00 Test Item Value Reference Range Interpretation Comments MCHC (test code = MCHC) 32.8 32.0-36.0 [facility] HospitalNujpamsSQIRXFMYHD0795-83-52 07:07:00 Test Item Value Reference Range Interpretation Comments MCH (test code = MCH) 27.9 pg 27.0-31.0 [facility] HospitalXaalbrrFSAWQOSGCY7693-28-41 07:07:00 Test Item Value Reference Range Interpretation Comments Hgb (test code = Hgb) 14.8 14.0-18.0 [facility] HospitalRlrhgefEVFUWZBSNB3984-25-88 07:07:00 Test Item Value Reference Range Interpretation Comments MCV (test code = MCV) 85.0 80.0-94.0 [facility] HospitalFomrpgkYOVRCONWEL1307-72-73 07:07:00 Test Item Value Reference Range Interpretation Comments Hct (test code = Hct) 45.1 42.0-54.0 [facility] HospitalEwvfpbhMDLELTUZUE2366-61-93 07:07:00 Test Item Value Reference Range Interpretation Comments RDW (test code = RDW) 17.5 11.5-14.5 [facility] HospitalKczhrizRAGZOEGNWP7538-24-83 07:07:00 Test Item Value Reference Range Interpretation Comments Eosinophils # (test code 0.2 See_Comment [A utomated message] The = Eosinophils #) system whic h generated this result tra nsmitted reference range : <=0.5. The reference r boubacar was not used to int erpret this result as normal/abnormal . [facility] HospitalGuvlkdsNJYOUGIDXS4243-83-41 07:07:00 Test Item Value Reference Range Interpretation Comments Lymphocytes # (test code = Lymphocytes 2.0 1.0-5.5 #) [facility] HospitalKydhgenDBQMMNFLJU4305-09-65 07:07:00 Test Item Value Reference Range Interpretation Comments Monocytes # (test code 0.7 See_Comment [Aut omated message] The = Monocytes #) system which generated this result tra nsmitted reference range : <=0.8. The reference r boubacar was not used to int erpret this result as normal/abnormal . [facility] HospitalHamixzmBYPWJNIBTC9286-37-21 07:07:00 Test Item Value Reference Range Interpretation Comments Eosinophils (test code = 2.4 See_Comment [A utomated message] The Eosinophils) system which ge nerated this result tra nsmitted reference range : <=4.0. The reference r boubacar was not used to int erpret this result as normal/abnormal . [facility] HospitalLtiksaxNURCCBMZLH3213-79-61 07:07:00 Test Item Value Reference Range Interpretation Comments Basophils (test code = 0.6 See_Comment [Aut omated message] The Basophils) system which ge nerated this result tra nsmitted reference range : <=1.0. The reference r boubacar was not used to int erpret this result as normal/abnormal . [facility] HospitalBbtsaezKJWQGQIUTT2449-84-06 07:07:00 Test Item Value Reference Range Interpretation Comments Segs-Bands # (test code = Segs-Bands #) 4.0 1.5-8.1 [facility] HospitalRdqfzadAAVJUENNMF2970-19-74 07:07:00 Test Item Value Reference Range Interpretation Comments Monocytes (test code = Monocytes) 10.4 2.0-12.0 [facility] HospitalZyfknnzZFOQBTQADD9148-13-74 07:07:00 Test Item Value Reference Range Interpretation Comments RBC Morph (test code = Normal (11/17/17 2:07 AM) RBC Morph) [facility] HospitalJrkqloyTVDCJBEUPI5447-04-91 07:07:00 Test Item Value Reference Range Interpretation Comments Segs (test code = Segs) 58.1 45.0-75.0 [facility] HospitalZehjfvmLEZUCKSZKQ1097-93-67 07:07:00 Test Item Value Reference Range Interpretation Comments Plt Morph (test code = Normal (11/17/17 2:07 AM) Plt Morph) [facility] HospitalQszecpwLOZEDVYKLP8223-45-26 07:07:00 Test Item Value Reference Range Interpretation Comments Lymphocytes (test code = Lymphocytes) 28.5 20.0-40.0 [facility]2018-05-06 07:07:00 Test Item Value Reference Range Interpretation Comments Glucose Lvl (test code = Glucose Lvl) 74 70-99 [facility]2018-05-06 07:07:00 Test Item Value Reference Range Interpretation Comments BUN (test code = BUN) 12 7-22 [facility]2018-05-06 07:07:00 Test Item Value Reference Range Interpretation Comments Creatinine Lvl (test code = Creatinine 0.75 0.50-1.40 Lvl) [facility]2018-05-06 07:07:00 Test Item Value Reference Range Interpretation Comments eGFR (test code = eGFR) 140 [facility]2018-05-06 07:07:00 Test Item Value Reference Range Interpretation Comments Albumin Lvl (test code = Albumin Lvl) 2.9 3.5-5.0 [place] 743208-05-06 07:07:00 Test Item Value Reference Range Interpretation Comments Globulin (test code = Globulin) 4.4 2.7-4.2 [place] 743208-05-06 07:07:00 Test Item Value Reference Range Interpretation Comments A/G Ratio (test code = A/G Ratio) 0.7 1 0.7-1.6 [place] 743208-05-06 07:07:00 Test Item Value Reference Range Interpretation Comments Bili Total (test code = Bili Total) 0.4 0.2-1.3 [place] 743208-05-06 07:07:00 Test Item Value Reference Range Interpretation Comments Alk Phos (test code = Alk Phos) 71 39-136 [place] 743208-05-06 07:07:00 Test Item Value Reference Range Interpretation Comments AST (test code = AST) 15 See_Comment [Auto mated message] The system which ge nerated this result transmit lester reference range : <=37. The reference range was not used to interpr et this result as dany l/abnormal. [facility]2018-05-06 07:07:00 Test Item Value Reference Range Interpretation Comments ALT (test code = ALT) 28 See_Comment [Auto mated message] The system which ge nerated this result transmit lester reference range : <=65. The reference range was not used to interpr et this result as dany l/abnormal. [place] 743208-05-06 07:07:00 Test Item Value Reference Range Interpretation Comments Potassium Lvl (test code = Potassium 4.4 3.5-5.1 Lvl) [facility]2018-05-06 07:07:00 Test Item Value Reference Range Interpretation Comments Sodium Lvl (test code = Sodium Lvl) 147 135-145 [place] 743208-05-06 07:07:00 Test Item Value Reference Range Interpretation Comments CO2 (test code = CO2) 25 24-32 [facility]2018-05-06 07:07:00 Test Item Value Reference Range Interpretation Comments Chloride Lvl (test code = Chloride Lvl) 114 95-109 [facility]2018-05-06 07:07:00 Test Item Value Reference Range Interpretation Comments B/C Ratio (test code = B/C Ratio) 16 1 6-25 [place] 743208-05-06 07:07:00 Test Item Value Reference Range Interpretation Comments Calcium Lvl (test code = Calcium Lvl) 8.7 8.5-10.5 [facility]2018-05-06 07:07:00 Test Item Value Reference Range Interpretation Comments AGAP (test code = AGAP) 12.4 10.0-20.0 [facility]2018-05-06 07:07:00 Test Item Value Reference Range Interpretation Comments Total Protein (test code = Total 7.3 6.4-8.4 Protein) [facility] HospitalQiyqxcxDBKNEHLVAF0864-42-23 07:07:00 Test Item Value Reference Range Interpretation Comments Platelet (test code = Platelet) 345 133-450 [facility] HospitalTgmshryOQOMKDGTSR6777-20-82 07:07:00 Test Item Value Reference Range Interpretation Comments MPV (test code = MPV) 8.7 7.4-10.4 [place] 996948-05-06 07:07:00 Test Item Value Reference Range Interpretation Comments WBC (test code = WBC) 6.9 3.7-10.4 [place] 996948-05-06 07:07:00 Test Item Value Reference Range Interpretation Comments RBC (test code = RBC) 5.30 4.70-6.10 [facility] HospitalItodfzzLRWNSRNWEQ0428-11-41 07:07:00 Test Item Value Reference Range Interpretation Comments MCHC (test code = MCHC) 32.8 32.0-36.0 [facility] HospitalRdlbeftLVRCSDOVDQ9584-77-88 07:07:00 Test Item Value Reference Range Interpretation Comments MCH (test code = MCH) 27.9 pg 27.0-31.0 [facility] HospitalAqbzfmlNVSFSGLIZR4792-42-82 07:07:00 Test Item Value Reference Range Interpretation Comments Hgb (test code = Hgb) 14.8 14.0-18.0 [facility] HospitalDntjwvjLLVHGPZXWG7278-14-59 07:07:00 Test Item Value Reference Range Interpretation Comments MCV (test code = MCV) 85.0 80.0-94.0 [facility] HospitalBhloojkQYMPNBJQPK3834-65-67 07:07:00 Test Item Value Reference Range Interpretation Comments Hct (test code = Hct) 45.1 42.0-54.0 [facility] HospitalCitockgKMCQIIGRRF7175-02-12 07:07:00 Test Item Value Reference Range Interpretation Comments RDW (test code = RDW) 17.5 11.5-14.5 [facility] HospitalDluxepjOQUFKXOIOH4847-68-89 07:07:00 Test Item Value Reference Range Interpretation Comments Eosinophils # (test code 0.2 See_Comment [A utomated message] The = Eosinophils #) system whic h generated this result tra nsmitted reference range : <=0.5. The reference r boubacar was not used to int erpret this result as normal/abnormal . [facility] HospitalHmjvstrYYJHBZOFDM3882-96-24 07:07:00 Test Item Value Reference Range Interpretation Comments Lymphocytes # (test code = Lymphocytes 2.0 1.0-5.5 #) [facility] HospitalDsmrsdwPEJQDZRXNQ6184-82-54 07:07:00 Test Item Value Reference Range Interpretation Comments Monocytes # (test code 0.7 See_Comment [Aut omated message] The = Monocytes #) system which generated this result tra nsmitted reference range : <=0.8. The reference r boubacar was not used to int erpret this result as normal/abnormal . [facility] HospitalGstypmwUVAIQLTWYH6671-37-42 07:07:00 Test Item Value Reference Range Interpretation Comments Eosinophils (test code = 2.4 See_Comment [A utomated message] The Eosinophils) system which ge nerated this result tra nsmitted reference range : <=4.0. The reference r boubacar was not used to int erpret this result as normal/abnormal . [facility] HospitalZtyiueqGLKRFTISCC4169-67-73 07:07:00 Test Item Value Reference Range Interpretation Comments Basophils (test code = 0.6 See_Comment [Aut omated message] The Basophils) system which ge nerated this result tra nsmitted reference range : <=1.0. The reference r boubacar was not used to int erpret this result as normal/abnormal . [facility] HospitalSkqrjgkLKTLUHWKDA1551-31-69 07:07:00 Test Item Value Reference Range Interpretation Comments Segs-Bands # (test code = Segs-Bands #) 4.0 1.5-8.1 [facility] HospitalIwvanjpQPUYDLWTUY6834-47-66 07:07:00 Test Item Value Reference Range Interpretation Comments Monocytes (test code = Monocytes) 10.4 2.0-12.0 [facility] HospitalUspvfqgFAIKCAHITT9262-39-14 07:07:00 Test Item Value Reference Range Interpretation Comments RBC Morph (test code = Normal (11/17/17 2:07 AM) RBC Morph) [facility] HospitalPbcwrwyQTVQSAHIVJ8599-08-09 07:07:00 Test Item Value Reference Range Interpretation Comments Segs (test code = Segs) 58.1 45.0-75.0 [facility] HospitalDzwbffvSMGDBEUKZN6923-26-84 07:07:00 Test Item Value Reference Range Interpretation Comments Plt Morph (test code = Normal (11/17/17 2:07 AM) Plt Morph) [facility] HospitalIrzqouoIJGWJPKHDU0529-52-26 07:07:00 Test Item Value Reference Range Interpretation Comments Lymphocytes (test code = Lymphocytes) 28.5 20.0-40.0 [facility]2018-05-06 07:07:00 Test Item Value Reference Range Interpretation Comments Glucose Lvl (test code = Glucose Lvl) 74 70-99 [facility]2018-05-06 07:07:00 Test Item Value Reference Range Interpretation Comments BUN (test code = BUN) 12 7-22 [facility]2018-05-06 07:07:00 Test Item Value Reference Range Interpretation Comments Creatinine Lvl (test code = Creatinine 0.75 0.50-1.40 Lvl) [facility]2018-05-06 07:07:00 Test Item Value Reference Range Interpretation Comments eGFR (test code = eGFR) 140 [facility]2018-05-06 07:07:00 Test Item Value Reference Range Interpretation Comments Albumin Lvl (test code = Albumin Lvl) 2.9 3.5-5.0 [facility]2018-05-06 07:07:00 Test Item Value Reference Range Interpretation Comments Globulin (test code = Globulin) 4.4 2.7-4.2 [place] 743208-05-06 07:07:00 Test Item Value Reference Range Interpretation Comments A/G Ratio (test code = A/G Ratio) 0.7 1 0.7-1.6 [place] 743208-05-06 07:07:00 Test Item Value Reference Range Interpretation Comments Bili Total (test code = Bili Total) 0.4 0.2-1.3 [place] [address]-05-06 07:07:00 Test Item Value Reference Range Interpretation Comments Alk Phos (test code = Alk Phos) 71 39-136 [place] 743208-05-06 07:07:00 Test Item Value Reference Range Interpretation Comments AST (test code = AST) 15 See_Comment [Auto mated message] The system which ge nerated this result transmit lester reference range : <=37. The reference range was not used to interpr et this result as dany l/abnormal. [place] [address]-05-06 07:07:00 Test Item Value Reference Range Interpretation Comments ALT (test code = ALT) 28 See_Comment [Auto mated message] The system which ge nerated this result transmit lester reference range : <=65. The reference range was not used to interpr et this result as dany l/abnormal. [place] 743208-05-06 07:07:00 Test Item Value Reference Range Interpretation Comments Potassium Lvl (test code = Potassium 4.4 3.5-5.1 Lvl) [facility]2018-05-06 07:07:00 Test Item Value Reference Range Interpretation Comments Sodium Lvl (test code = Sodium Lvl) 147 135-145 [place] 743208-05-06 07:07:00 Test Item Value Reference Range Interpretation Comments CO2 (test code = CO2) 25 24-32 [place] 743208-05-06 07:07:00 Test Item Value Reference Range Interpretation Comments Chloride Lvl (test code = Chloride Lvl) 114 95-109 [place] 743208-05-06 07:07:00 Test Item Value Reference Range Interpretation Comments B/C Ratio (test code = B/C Ratio) 16 1 6-25 [place] 743208-05-06 07:07:00 Test Item Value Reference Range Interpretation Comments Calcium Lvl (test code = Calcium Lvl) 8.7 8.5-10.5 [facility] XVFQJ2827-49-56 07:07:00 Test Item Value Reference Range Interpretation Comments AGAP (test code = AGAP) 12.4 10.0-20.0 [facility]2018-05-06 07:07:00 Test Item Value Reference Range Interpretation Comments Total Protein (test code = Total 7.3 6.4-8.4 Protein) [facility] HospitalNpjhvneUKEXKCBMWV3060-80-24 07:07:00 Test Item Value Reference Range Interpretation Comments Platelet (test code = Platelet) 345 133-450 [facility] HospitalGmoidcfLJQNUXBWRR6004-37-98 07:07:00 Test Item Value Reference Range Interpretation Comments MPV (test code = MPV) 8.7 7.4-10.4 [facility] HospitalHpktvqpHKQWHNFWXV4024-80-44 07:07:00 Test Item Value Reference Range Interpretation Comments WBC (test code = WBC) 6.9 3.7-10.4 [facility] HospitalJwexqbcMRYROWTMIF8159-08-62 07:07:00 Test Item Value Reference Range Interpretation Comments RBC (test code = RBC) 5.30 4.70-6.10 [facility] HospitalXgucuszMZNPZVGBFZ1333-27-43 07:07:00 Test Item Value Reference Range Interpretation Comments MCHC (test code = MCHC) 32.8 32.0-36.0 [facility] HospitalYuqwlrcZCIEXLOETW9834-49-31 07:07:00 Test Item Value Reference Range Interpretation Comments MCH (test code = MCH) 27.9 pg 27.0-31.0 [facility] HospitalAigsssbMUJLWANPXV9987-09-56 07:07:00 Test Item Value Reference Range Interpretation Comments Hgb (test code = Hgb) 14.8 14.0-18.0 [facility] HospitalObygsvwIIAFSZTNOU3480-10-19 07:07:00 Test Item Value Reference Range Interpretation Comments MCV (test code = MCV) 85.0 80.0-94.0 [facility] HospitalAybusucDKCKIXGRMN1447-72-74 07:07:00 Test Item Value Reference Range Interpretation Comments Hct (test code = Hct) 45.1 42.0-54.0 [place] 996948-05-06 07:07:00 Test Item Value Reference Range Interpretation Comments RDW (test code = RDW) 17.5 11.5-14.5 [facility] HospitalCakyzyjEXSJBBVXNH3150-39-83 07:07:00 Test Item Value Reference Range Interpretation Comments Eosinophils # (test code 0.2 See_Comment [A utomated message] The = Eosinophils #) system whic h generated this result tra nsmitted reference range : <=0.5. The reference r boubacar was not used to int erpret this result as normal/abnormal . [facility] HospitalYumitojDAHXKEDEYN3847-18-32 07:07:00 Test Item Value Reference Range Interpretation Comments Lymphocytes # (test code = Lymphocytes 2.0 1.0-5.5 #) [facility] HospitalGfstudsBHZAYBOZBW9095-30-90 07:07:00 Test Item Value Reference Range Interpretation Comments Monocytes # (test code 0.7 See_Comment [Aut omated message] The = Monocytes #) system which generated this result tra nsmitted reference range : <=0.8. The reference r boubacar was not used to int erpret this result as normal/abnormal . [facility] HospitalGnqzxwhAYKCYVRVMR8217-10-63 07:07:00 Test Item Value Reference Range Interpretation Comments Eosinophils (test code = 2.4 See_Comment [A utomated message] The Eosinophils) system which ge nerated this result tra nsmitted reference range : <=4.0. The reference r boubacar was not used to int erpret this result as normal/abnormal . [facility] HospitalSzvqzboPGKQVARENW1733-99-24 07:07:00 Test Item Value Reference Range Interpretation Comments Basophils (test code = 0.6 See_Comment [Aut omated message] The Basophils) system which ge nerated this result tra nsmitted reference range : <=1.0. The reference r obubacar was not used to int erpret this result as normal/abnormal . [facility] HospitalWsiztcmFQHPHOOGFJ3824-69-14 07:07:00 Test Item Value Reference Range Interpretation Comments Segs-Bands # (test code = Segs-Bands #) 4.0 1.5-8.1 [facility] HospitalOqqjufiJGBERJUKMQ0326-32-88 07:07:00 Test Item Value Reference Range Interpretation Comments Monocytes (test code = Monocytes) 10.4 2.0-12.0 [facility] HospitalWhmdpmwDCMQTKDBBQ8189-50-66 07:07:00 Test Item Value Reference Range Interpretation Comments RBC Morph (test code = Normal (11/17/17 2:07 AM) RBC Morph) [facility] HospitalFbitphqROYTCOYMYA8334-43-16 07:07:00 Test Item Value Reference Range Interpretation Comments Segs (test code = Segs) 58.1 45.0-75.0 [facility] HospitalAqtbqviLOGSWKADXB4176-79-19 07:07:00 Test Item Value Reference Range Interpretation Comments Plt Morph (test code = Normal (11/17/17 2:07 AM) Plt Morph) [facility] HospitalWmkszprTKDGDRGKXX7370-47-86 07:07:00 Test Item Value Reference Range Interpretation Comments Lymphocytes (test code = Lymphocytes) 28.5 20.0-40.0 [facility]2018-05-06 07:07:00 Test Item Value Reference Range Interpretation Comments Glucose Lvl (test code = Glucose Lvl) 74 70-99 [facility]2018-05-06 07:07:00 Test Item Value Reference Range Interpretation Comments BUN (test code = BUN) 12 7-22 [facility]2018-05-06 07:07:00 Test Item Value Reference Range Interpretation Comments Creatinine Lvl (test code = Creatinine 0.75 0.50-1.40 Lvl) [facility]2018-05-06 07:07:00 Test Item Value Reference Range Interpretation Comments eGFR (test code = eGFR) 140 [facility]2018-05-06 07:07:00 Test Item Value Reference Range Interpretation Comments Albumin Lvl (test code = Albumin Lvl) 2.9 3.5-5.0 [facility]2018-05-06 07:07:00 Test Item Value Reference Range Interpretation Comments Globulin (test code = Globulin) 4.4 2.7-4.2 [facility]2018-05-06 07:07:00 Test Item Value Reference Range Interpretation Comments A/G Ratio (test code = A/G Ratio) 0.7 1 0.7-1.6 [facility]2018-05-06 07:07:00 Test Item Value Reference Range Interpretation Comments Bili Total (test code = Bili Total) 0.4 0.2-1.3 [facility]2018-05-06 07:07:00 Test Item Value Reference Range Interpretation Comments Alk Phos (test code = Alk Phos) 71 39-136 [facility]2018-05-06 07:07:00 Test Item Value Reference Range Interpretation Comments AST (test code = AST) 15 See_Comment [Auto mated message] The system which ge nerated this result transmit lester reference range : <=37. The reference range was not used to interpr et this result as dany l/abnormal. [facility]2018-05-06 07:07:00 Test Item Value Reference Range Interpretation Comments ALT (test code = ALT) 28 See_Comment [Auto mated message] The system which ge nerated this result transmit lester reference range : <=65. The reference range was not used to interpr et this result as dany l/abnormal. [place] 743208-05-06 07:07:00 Test Item Value Reference Range Interpretation Comments Potassium Lvl (test code = Potassium 4.4 3.5-5.1 Lvl) [facility]2018-05-06 07:07:00 Test Item Value Reference Range Interpretation Comments Sodium Lvl (test code = Sodium Lvl) 147 135-145 [place] 743208-05-06 07:07:00 Test Item Value Reference Range Interpretation Comments CO2 (test code = CO2) 25 24-32 [place] 743208-05-06 07:07:00 Test Item Value Reference Range Interpretation Comments Chloride Lvl (test code = Chloride Lvl) 114 95-109 [facility]2018-05-06 07:07:00 Test Item Value Reference Range Interpretation Comments B/C Ratio (test code = B/C Ratio) 16 1 6-25 [place] 743208-05-06 07:07:00 Test Item Value Reference Range Interpretation Comments Calcium Lvl (test code = Calcium Lvl) 8.7 8.5-10.5 [place] 743208-05-06 07:07:00 Test Item Value Reference Range Interpretation Comments AGAP (test code = AGAP) 12.4 10.0-20.0 [place] 743208-05-06 07:07:00 Test Item Value Reference Range Interpretation Comments Total Protein (test code = Total 7.3 6.4-8.4 Protein) [facility] HospitalOwgtptbLSFYFOWTXX8436-83-66 07:07:00 Test Item Value Reference Range Interpretation Comments Platelet (test code = Platelet) 345 133-450 [place] 996948-05-06 07:07:00 Test Item Value Reference Range Interpretation Comments MPV (test code = MPV) 8.7 7.4-10.4 [facility] HospitalCmzxenwIBTVVVYSFB2828-92-12 07:07:00 Test Item Value Reference Range Interpretation Comments WBC (test code = WBC) 6.9 3.7-10.4 [facility] HospitalLytuqcmBQNPSPFPOD4321-86-88 07:07:00 Test Item Value Reference Range Interpretation Comments RBC (test code = RBC) 5.30 4.70-6.10 [facility] HospitalIirdfsxJFOJKKUDXL1086-65-67 07:07:00 Test Item Value Reference Range Interpretation Comments MCHC (test code = MCHC) 32.8 32.0-36.0 [facility] HospitalOecjwzoJNVJKNSIAQ5214-57-65 07:07:00 Test Item Value Reference Range Interpretation Comments MCH (test code = MCH) 27.9 pg 27.0-31.0 [facility] HospitalZtazpunODSDJFIVXV9416-91-42 07:07:00 Test Item Value Reference Range Interpretation Comments Hgb (test code = Hgb) 14.8 14.0-18.0 [facility] HospitalOroudhlRQRNAOQRFU1818-84-59 07:07:00 Test Item Value Reference Range Interpretation Comments MCV (test code = MCV) 85.0 80.0-94.0 [facility] HospitalYswenlhKQEPBVXUZB6449-21-58 07:07:00 Test Item Value Reference Range Interpretation Comments Hct (test code = Hct) 45.1 42.0-54.0 [facility] HospitalXbvjorbTPMSKGGANK5661-45-56 07:07:00 Test Item Value Reference Range Interpretation Comments RDW (test code = RDW) 17.5 11.5-14.5 [facility] HospitalPvnjipqQWKKQIQSJO2715-26-46 07:07:00 Test Item Value Reference Range Interpretation Comments Eosinophils # (test code 0.2 See_Comment [A utomated message] The = Eosinophils #) system whic h generated this result tra nsmitted reference range : <=0.5. The reference r boubacar was not used to int erpret this result as normal/abnormal . [facility] HospitalJwxxwjvVLZCCZWIJY4451-51-22 07:07:00 Test Item Value Reference Range Interpretation Comments Lymphocytes # (test code = Lymphocytes 2.0 1.0-5.5 #) [facility] HospitalTgiaccnJQKALTWYBW2069-90-70 07:07:00 Test Item Value Reference Range Interpretation Comments Monocytes # (test code 0.7 See_Comment [Aut omated message] The = Monocytes #) system which generated this result tra nsmitted reference range : <=0.8. The reference r boubacar was not used to int erpret this result as normal/abnormal . [facility] HospitalGpzuhxdVYVBYHEQQQ0029-54-30 07:07:00 Test Item Value Reference Range Interpretation Comments Eosinophils (test code = 2.4 See_Comment [A utomated message] The Eosinophils) system which ge nerated this result tra nsmitted reference range : <=4.0. The reference r boubacar was not used to int erpret this result as normal/abnormal . [facility] HospitalUoocvwqPHCLABNRNM3400-62-25 07:07:00 Test Item Value Reference Range Interpretation Comments Basophils (test code = 0.6 See_Comment [Aut omated message] The Basophils) system which ge nerated this result tra nsmitted reference range : <=1.0. The reference r boubacar was not used to int erpret this result as normal/abnormal . [facility] HospitalRhhgbmdOXHSNVFLOD5148-94-79 07:07:00 Test Item Value Reference Range Interpretation Comments Segs-Bands # (test code = Segs-Bands #) 4.0 1.5-8.1 [facility] HospitalJpfjnrzGPRQJVNBZJ5575-54-73 07:07:00 Test Item Value Reference Range Interpretation Comments Monocytes (test code = Monocytes) 10.4 2.0-12.0 [facility] HospitalLjwcmhmEXYWCOTLGZ9980-30-11 07:07:00 Test Item Value Reference Range Interpretation Comments RBC Morph (test code = Normal (11/17/17 2:07 AM) RBC Morph) [facility] HospitalTqytunxHPHUTMEAXR8094-90-50 07:07:00 Test Item Value Reference Range Interpretation Comments Segs (test code = Segs) 58.1 45.0-75.0 [facility] HospitalBtbhukbSCFCEVZVTJ0530-04-36 07:07:00 Test Item Value Reference Range Interpretation Comments Plt Morph (test code = Normal (11/17/17 2:07 AM) Plt Morph) [facility] HospitalXfhksnqPNSQWCORQH7616-72-01 07:07:00 Test Item Value Reference Range Interpretation Comments Lymphocytes (test code = Lymphocytes) 28.5 20.0-40.0 [facility]2018-05-06 07:07:00 Test Item Value Reference Range Interpretation Comments Glucose Lvl (test code = Glucose Lvl) 74 70-99 [place] 743208-05-06 07:07:00 Test Item Value Reference Range Interpretation Comments BUN (test code = BUN) 12 7-22 [place] [address]-05-06 07:07:00 Test Item Value Reference Range Interpretation Comments Creatinine Lvl (test code = Creatinine 0.75 0.50-1.40 Lvl) [place] [address]-05-06 07:07:00 Test Item Value Reference Range Interpretation Comments eGFR (test code = eGFR) 140 [place] 743208-05-06 07:07:00 Test Item Value Reference Range Interpretation Comments Albumin Lvl (test code = Albumin Lvl) 2.9 3.5-5.0 [place] [address]-05-06 07:07:00 Test Item Value Reference Range Interpretation Comments Globulin (test code = Globulin) 4.4 2.7-4.2 [place] [address]-05-06 07:07:00 Test Item Value Reference Range Interpretation Comments A/G Ratio (test code = A/G Ratio) 0.7 1 0.7-1.6 [place] [address]-05-06 07:07:00 Test Item Value Reference Range Interpretation Comments Bili Total (test code = Bili Total) 0.4 0.2-1.3 [place] [address]-05-06 07:07:00 Test Item Value Reference Range Interpretation Comments Alk Phos (test code = Alk Phos) 71 39-136 [place] 743208-05-06 07:07:00 Test Item Value Reference Range Interpretation Comments AST (test code = AST) 15 See_Comment [Auto mated message] The system which ge nerated this result transmit lester reference range : <=37. The reference range was not used to interpr et this result as dany l/abnormal. [place] 743208-05-06 07:07:00 Test Item Value Reference Range Interpretation Comments ALT (test code = ALT) 28 See_Comment [Auto mated message] The system which ge nerated this result transmit lester reference range : <=65. The reference range was not used to interpr et this result as dany l/abnormal. [facility]2018-05-06 07:07:00 Test Item Value Reference Range Interpretation Comments Potassium Lvl (test code = Potassium 4.4 3.5-5.1 Lvl) [facility]2018-05-06 07:07:00 Test Item Value Reference Range Interpretation Comments Sodium Lvl (test code = Sodium Lvl) 147 135-145 [place] 743208-05-06 07:07:00 Test Item Value Reference Range Interpretation Comments CO2 (test code = CO2) 25 24-32 [facility]2018-05-06 07:07:00 Test Item Value Reference Range Interpretation Comments Chloride Lvl (test code = Chloride Lvl) 114 95-109 [place] 743208-05-06 07:07:00 Test Item Value Reference Range Interpretation Comments B/C Ratio (test code = B/C Ratio) 16 1 6-25 [place] 743208-05-06 07:07:00 Test Item Value Reference Range Interpretation Comments Calcium Lvl (test code = Calcium Lvl) 8.7 8.5-10.5 [place] 743208-05-06 07:07:00 Test Item Value Reference Range Interpretation Comments AGAP (test code = AGAP) 12.4 10.0-20.0 [facility]2018-05-06 07:07:00 Test Item Value Reference Range Interpretation Comments Total Protein (test code = Total 7.3 6.4-8.4 Protein) [facility]PypacqjPQFVYGWZYZ3813-62-32 07:07:00 Test Item Value Reference Range Interpretation Comments Platelet (test code = Platelet) 345 133-450 [facility] HospitalWywooygKRKONNRBHW7974-52-02 07:07:00 Test Item Value Reference Range Interpretation Comments MPV (test code = MPV) 8.7 7.4-10.4 [place] 996948-05-06 07:07:00 Test Item Value Reference Range Interpretation Comments WBC (test code = WBC) 6.9 3.7-10.4 [place] 996948-05-06 07:07:00 Test Item Value Reference Range Interpretation Comments RBC (test code = RBC) 5.30 4.70-6.10 [place] 996948-05-06 07:07:00 Test Item Value Reference Range Interpretation Comments MCHC (test code = MCHC) 32.8 32.0-36.0 [facility] HospitalSrinmizDEDOIZGUDG7381-27-25 07:07:00 Test Item Value Reference Range Interpretation Comments MCH (test code = MCH) 27.9 pg 27.0-31.0 [facility] HospitalXnblpmjXWWXOAZEPO8964-17-11 07:07:00 Test Item Value Reference Range Interpretation Comments Hgb (test code = Hgb) 14.8 14.0-18.0 [facility] HospitalVokmpjkTGZWMGEHNI8681-54-20 07:07:00 Test Item Value Reference Range Interpretation Comments MCV (test code = MCV) 85.0 80.0-94.0 [facility] HospitalMipcvukBSMDNFBNKA7818-24-89 07:07:00 Test Item Value Reference Range Interpretation Comments Hct (test code = Hct) 45.1 42.0-54.0 [facility] HospitalIqixgtbUYVJQHAUJC5847-62-79 07:07:00 Test Item Value Reference Range Interpretation Comments RDW (test code = RDW) 17.5 11.5-14.5 [facility] HospitalWkybpjbLFFXWGZOFC6683-41-96 07:07:00 Test Item Value Reference Range Interpretation Comments Eosinophils # (test code 0.2 See_Comment [A utomated message] The = Eosinophils #) system whic h generated this result tra nsmitted reference range : <=0.5. The reference r boubacar was not used to int erpret this result as normal/abnormal . [facility] HospitalKlmyxrqAMBJYREKGU7407-90-07 07:07:00 Test Item Value Reference Range Interpretation Comments Lymphocytes # (test code = Lymphocytes 2.0 1.0-5.5 #) [facility] HospitalOdnowxrKHRPFSOIDZ1421-14-00 07:07:00 Test Item Value Reference Range Interpretation Comments Monocytes # (test code 0.7 See_Comment [Aut omated message] The = Monocytes #) system which generated this result tra nsmitted reference range : <=0.8. The reference r boubacar was not used to int erpret this result as normal/abnormal . [facility] HospitalWtgzyfiILUHXCAZSB2306-84-84 07:07:00 Test Item Value Reference Range Interpretation Comments Eosinophils (test code = 2.4 See_Comment [A utomated message] The Eosinophils) system which ge nerated this result tra nsmitted reference range : <=4.0. The reference r boubacar was not used to int erpret this result as normal/abnormal . [facility] HospitalGdislkkXZVJJWHFRM7013-22-50 07:07:00 Test Item Value Reference Range Interpretation Comments Basophils (test code = 0.6 See_Comment [Aut omated message] The Basophils) system which ge nerated this result tra nsmitted reference range : <=1.0. The reference r boubacar was not used to int erpret this result as normal/abnormal . [facility] HospitalXtmlumyZMWBTQDCKM7497-48-13 07:07:00 Test Item Value Reference Range Interpretation Comments Segs-Bands # (test code = Segs-Bands #) 4.0 1.5-8.1 [facility] HospitalUtwhqyyBTPKGYQZCH2324-39-88 07:07:00 Test Item Value Reference Range Interpretation Comments Monocytes (test code = Monocytes) 10.4 2.0-12.0 [facility] HospitalAootcueIJNCVXSMAI9209-90-13 07:07:00 Test Item Value Reference Range Interpretation Comments RBC Morph (test code = Normal (11/17/17 2:07 AM) RBC Morph) [facility] HospitalBusqlatBJSAOLYWLZ0183-44-23 07:07:00 Test Item Value Reference Range Interpretation Comments Segs (test code = Segs) 58.1 45.0-75.0 [facility] HospitalCwjkmhfYVCXZJBZAD9962-56-58 07:07:00 Test Item Value Reference Range Interpretation Comments Plt Morph (test code = Normal (11/17/17 2:07 AM) Plt Morph) [facility] HospitalOihzzygJPOQEFPSOY3834-09-66 07:07:00 Test Item Value Reference Range Interpretation Comments Lymphocytes (test code = Lymphocytes) 28.5 20.0-40.0 [facility] HospitalSnetnicDIFFFBERUX4296-51-72 16:07:00 Test Item Value Reference Range Interpretation Comments Basophils # (test code 0.1 See_Comment [Aut omated message] The = Basophils #) system which generated this result tra nsmitted reference range : <=0.2. The reference r boubacar was not used to int erpret this result as normal/abnormal . [facility] HospitalJxiowogZWFGKDHHBI9859-90-36 16:07:00 Test Item Value Reference Range Interpretation Comments Polychrom (test code = Moderate *ABN*(11/16/17 Polychrom) 11:07 AM) [facility] HospitalRiqlredHYETKZHRUQ2403-84-45 16:07:00 Test Item Value Reference Range Interpretation Comments Basophils # (test code 0.1 See_Comment [Aut omated message] The = Basophils #) system which generated this result tra nsmitted reference range : <=0.2. The reference r boubacar was not used to int erpret this result as normal/abnormal . [facility] HospitalFjvuvpiHUVRWXNCYZ1468-29-36 16:07:00 Test Item Value Reference Range Interpretation Comments Polychrom (test code = Moderate *ABN*(11/16/17 Polychrom) 11:07 AM) [facility] HospitalTmgnyavBTRJGJCIGE8531-39-24 16:07:00 Test Item Value Reference Range Interpretation Comments Basophils # (test code 0.1 See_Comment [Aut omated message] The = Basophils #) system which generated this result tra nsmitted reference range : <=0.2. The reference r boubacar was not used to int erpret this result as normal/abnormal . [facility] HospitalYazxxpmIWAKQEDZXG9573-67-26 16:07:00 Test Item Value Reference Range Interpretation Comments Polychrom (test code = Moderate *ABN*(11/16/17 Polychrom) 11:07 AM) [facility] HospitalRyvjdfyEIVPXOYALG6404-15-25 16:07:00 Test Item Value Reference Range Interpretation Comments Basophils # (test code 0.1 See_Comment [Aut omated message] The = Basophils #) system which generated this result tra nsmitted reference range : <=0.2. The reference r boubacar was not used to int erpret this result as normal/abnormal . [facility] HospitalOuwuffjANHSUTLDXN4407-28-78 16:07:00 Test Item Value Reference Range Interpretation Comments Polychrom (test code = Moderate *ABN*(11/16/17 Polychrom) 11:07 AM) [facility] HospitalQhaclncKXYBSJMWZT6503-87-05 16:07:00 Test Item Value Reference Range Interpretation Comments Basophils # (test code 0.1 See_Comment [Aut omated message] The = Basophils #) system which generated this result tra nsmitted reference range : <=0.2. The reference r boubacar was not used to int erpret this result as normal/abnormal . [facility] HospitalSxsitidOKUUXKOMUO1536-38-05 16:07:00 Test Item Value Reference Range Interpretation Comments Polychrom (test code = Moderate *ABN*(11/16/17 Polychrom) 11:07 AM) [facility] HospitalSolyxxiWHRDGEJLGM9861-58-03 16:07:00 Test Item Value Reference Range Interpretation Comments Basophils # (test code 0.1 See_Comment [Aut omated message] The = Basophils #) system which generated this result tra nsmitted reference range : <=0.2. The reference r boubacar was not used to int erpret this result as normal/abnormal . [facility] HospitalHgiemizNOOPEBGBXZ2740-81-05 16:07:00 Test Item Value Reference Range Interpretation Comments Polychrom (test code = Moderate *ABN*(11/16/17 Polychrom) 11:07 AM) [facility] HospitalVgiiwjzMXLTKCIGVI8070-14-33 16:07:00 Test Item Value Reference Range Interpretation Comments Basophils # (test code 0.1 See_Comment [Aut omated message] The = Basophils #) system which generated this result tra nsmitted reference range : <=0.2. The reference r boubacar was not used to int erpret this result as normal/abnormal . [facility] HospitalShmqkiiRQCQLMKEGR7785-25-61 16:07:00 Test Item Value Reference Range Interpretation Comments Polychrom (test code = Moderate *ABN*(11/16/17 Polychrom) 11:07 AM) [facility]inteZzyqlzpGTVUABFMPY7539-57-83 06:43:00 Test Item Value Reference Range Interpretation Comments Vanco Tr TND (test code = Vanco Tr TND) * [facility] EcxcwoaNMNVGFNGIG4029-49-08 06:43:00 Test Item Value Reference Range Interpretation Comments Vanco Tr (test code = Vanco Tr) 22.3 [facility] RgrkxxhRCKJAICOFE6710-63-85 06:43:00 Test Item Value Reference Range Interpretation Comments Vanco Tr TND (test code = Vanco Tr TND) * [facility] PendbtdCMUWGIMYUW6696-86-72 06:43:00 Test Item Value Reference Range Interpretation Comments Vanco Tr (test code = Vanco Tr) 22.3 [facility] EdjvxtvHEWQTPSJHQ3611-29-42 06:43:00 Test Item Value Reference Range Interpretation Comments Vanco Tr TND (test code = Vanco Tr TND) * [facility] KiardvtJOYVZBQBKS7139-03-85 06:43:00 Test Item Value Reference Range Interpretation Comments Vanco Tr (test code = Vanco Tr) 22.3 [facility] AdqzmyeDVYGLXMOVR8042-16-32 06:43:00 Test Item Value Reference Range Interpretation Comments Vanco Tr TND (test code = Vanco Tr TND) * [facility] OanpkioTEBINIIOXK6848-95-02 06:43:00 Test Item Value Reference Range Interpretation Comments Vanco Tr (test code = Vanco Tr) 22.3 [facility] GphfrayEWYIFMDHDU4263-26-49 06:43:00 Test Item Value Reference Range Interpretation Comments Vanco Tr TND (test code = Vanco Tr TND) * [facility] ZmcufxsPRSHMIAYVR3919-07-17 06:43:00 Test Item Value Reference Range Interpretation Comments Vanco Tr (test code = Vanco Tr) 22.3 [facility] YqdqzjqBTBRKKTWOR1810-00-52 06:43:00 Test Item Value Reference Range Interpretation Comments Vanco Tr TND (test code = Vanco Tr TND) * [facility] SejhqhvKJNRWJAPWS5077-52-06 06:43:00 Test Item Value Reference Range Interpretation Comments Vanco Tr (test code = Vanco Tr) 22.3 [facility] VrfuujiCPFVARQPQD6134-31-59 06:43:00 Test Item Value Reference Range Interpretation Comments Vanco Tr TND (test code = Vanco Tr TND) * [facility] LbnovirYPXKBKHZWF5216-32-03 06:43:00 Test Item Value Reference Range Interpretation Comments Vanco Tr (test code = Vanco Tr) 22.3 [facility]inte[facility] QDNSM0898-32-87 11:45:00 Test Item Value Reference Range Interpretation Comments Magnesium Lvl (test code = Magnesium 2.3 1.8-2.4 Lvl) [facility] PointeannJobHoreca TECVZ4670-64-59 11:45:00 Test Item Value Reference Range Interpretation Comments Phosphorus (test code = Phosphorus) 3.5 2.5-4.5 [facility] ZbkzfdzRSBUXCMULU3676-05-57 11:45:00 Test Item Value Reference Range Interpretation Comments PT (test code = PT) 14.0 s 12.0-14.7 [facility] PointeQxkknltTQNGLBIHYF0531-95-12 11:45:00 Test Item Value Reference Range Interpretation Comments PTT (test code = PTT) 37.6 s 22.9-35.8 [facility] PointeVnxmwwfTNYIEFCGFR4824-85-90 11:45:00 Test Item Value Reference Range Interpretation Comments INR (test code = INR) 1.08 1 0.85-1.17 [facility] BudaCvyheyqBBJPDOOALF5897-07-50 11:45:00 Test Item Value Reference Range Interpretation Comments C-REACTIVE PROTEIN (test code = 13.1 C-REACTIVE PROTEIN) [facility] BudaGwdxvdlVVIZOCZPJJ3756-03-06 11:45:00 Test Item Value Reference Range Interpretation Comments Prealbumin (test code = Prealbumin) 25.2 18.0-45.0 [facility]2018-05-04 11:45:00 Test Item Value Reference Range Interpretation Comments Magnesium Lvl (test code = Magnesium 2.3 1.8-2.4 Lvl) [facility]2018-05-04 11:45:00 Test Item Value Reference Range Interpretation Comments Phosphorus (test code = Phosphorus) 3.5 2.5-4.5 [facility] HospitalArdtjhhIPIZYYHBSZ8255-98-48 11:45:00 Test Item Value Reference Range Interpretation Comments PT (test code = PT) 14.0 s 12.0-14.7 [facility] HospitalZnehukxTCFXEZKZVM4933-51-64 11:45:00 Test Item Value Reference Range Interpretation Comments PTT (test code = PTT) 37.6 s 22.9-35.8 [facility] HospitalRiofwxjXIBZZIFSVD1190-56-83 11:45:00 Test Item Value Reference Range Interpretation Comments INR (test code = INR) 1.08 1 0.85-1.17 [facility] BudaHuixikvVTXKWOZBUY9657-23-79 11:45:00 Test Item Value Reference Range Interpretation Comments C-REACTIVE PROTEIN (test code = 13.1 C-REACTIVE PROTEIN) [facility] BudaCywhwvbFNSYPQLWJB0783-65-55 11:45:00 Test Item Value Reference Range Interpretation Comments Prealbumin (test code = Prealbumin) 25.2 18.0-45.0 [facility]2018-05-04 11:45:00 Test Item Value Reference Range Interpretation Comments Magnesium Lvl (test code = Magnesium 2.3 1.8-2.4 Lvl) [facility]2018-05-04 11:45:00 Test Item Value Reference Range Interpretation Comments Phosphorus (test code = Phosphorus) 3.5 2.5-4.5 [facility] HospitalIazgnouFKYXHCVRRC7018-76-16 11:45:00 Test Item Value Reference Range Interpretation Comments PT (test code = PT) 14.0 s 12.0-14.7 [facility] HospitalOepepzpWOBTJIVURV3076-10-00 11:45:00 Test Item Value Reference Range Interpretation Comments PTT (test code = PTT) 37.6 s 22.9-35.8 [facility] HospitalOaoyrdcBSHCYMERCB6637-92-56 11:45:00 Test Item Value Reference Range Interpretation Comments INR (test code = INR) 1.08 1 0.85-1.17 [facility] BudaEdaapyvOPMEBZFBGM4818-84-29 11:45:00 Test Item Value Reference Range Interpretation Comments C-REACTIVE PROTEIN (test code = 13.1 C-REACTIVE PROTEIN) [facility] BudaMbejyruMCPUIQQRCH3678-26-09 11:45:00 Test Item Value Reference Range Interpretation Comments Prealbumin (test code = Prealbumin) 25.2 18.0-45.0 [facility]2018-05-04 11:45:00 Test Item Value Reference Range Interpretation Comments Magnesium Lvl (test code = Magnesium 2.3 1.8-2.4 Lvl) [facility]2018-05-04 11:45:00 Test Item Value Reference Range Interpretation Comments Phosphorus (test code = Phosphorus) 3.5 2.5-4.5 [facility] HospitalOxkhmnuQQWCECMUQW9776-16-51 11:45:00 Test Item Value Reference Range Interpretation Comments PT (test code = PT) 14.0 s 12.0-14.7 [facility] HospitalWyiuugmBWVJFSLBGL1074-46-69 11:45:00 Test Item Value Reference Range Interpretation Comments PTT (test code = PTT) 37.6 s 22.9-35.8 [facility] HospitalGqmxsumVCJIMHVUTD0492-12-90 11:45:00 Test Item Value Reference Range Interpretation Comments INR (test code = INR) 1.08 1 0.85-1.17 [facility] BudaKeqwzcuSBORBCVUNJ3979-42-26 11:45:00 Test Item Value Reference Range Interpretation Comments C-REACTIVE PROTEIN (test code = 13.1 C-REACTIVE PROTEIN) [facility] BudaVqvprimXWHHGSGXEM6226-16-80 11:45:00 Test Item Value Reference Range Interpretation Comments Prealbumin (test code = Prealbumin) 25.2 18.0-45.0 [facility]2018-05-04 11:45:00 Test Item Value Reference Range Interpretation Comments Magnesium Lvl (test code = Magnesium 2.3 1.8-2.4 Lvl) [facility]2018-05-04 11:45:00 Test Item Value Reference Range Interpretation Comments Phosphorus (test code = Phosphorus) 3.5 2.5-4.5 [facility] HospitalEhjrtdgPPFRATPWIF8796-44-40 11:45:00 Test Item Value Reference Range Interpretation Comments PT (test code = PT) 14.0 s 12.0-14.7 [facility] HospitalIhjyyqtDVXSQCELOV0806-26-08 11:45:00 Test Item Value Reference Range Interpretation Comments PTT (test code = PTT) 37.6 s 22.9-35.8 [facility] HospitalTujsneqWHTTGIHZJQ4735-47-05 11:45:00 Test Item Value Reference Range Interpretation Comments INR (test code = INR) 1.08 1 0.85-1.17 [facility] BudaXuabntdYTPVAZUFBJ6867-02-44 11:45:00 Test Item Value Reference Range Interpretation Comments C-REACTIVE PROTEIN (test code = 13.1 C-REACTIVE PROTEIN) [facility] BudaVpxxwmsLOLTATGFJZ5418-40-39 11:45:00 Test Item Value Reference Range Interpretation Comments Prealbumin (test code = Prealbumin) 25.2 18.0-45.0 [facility]2018-05-04 11:45:00 Test Item Value Reference Range Interpretation Comments Magnesium Lvl (test code = Magnesium 2.3 1.8-2.4 Lvl) [facility]2018-05-04 11:45:00 Test Item Value Reference Range Interpretation Comments Phosphorus (test code = Phosphorus) 3.5 2.5-4.5 [facility] HospitalHrcafnvSTDAZLZIGX5467-13-77 11:45:00 Test Item Value Reference Range Interpretation Comments PT (test code = PT) 14.0 s 12.0-14.7 [facility] HospitalLptbfcsEYUFTQKCOX5888-46-78 11:45:00 Test Item Value Reference Range Interpretation Comments PTT (test code = PTT) 37.6 s 22.9-35.8 [facility] HospitalRgxauaqOOUXAPSLRQ2728-24-24 11:45:00 Test Item Value Reference Range Interpretation Comments INR (test code = INR) 1.08 1 0.85-1.17 [facility] BudaBnfpeyqAPHEZMDMHH0565-44-47 11:45:00 Test Item Value Reference Range Interpretation Comments C-REACTIVE PROTEIN (test code = 13.1 C-REACTIVE PROTEIN) [facility] BudaEhgynzkZDFDGFRBFH9931-92-98 11:45:00 Test Item Value Reference Range Interpretation Comments Prealbumin (test code = Prealbumin) 25.2 18.0-45.0 [facility]2018-05-04 11:45:00 Test Item Value Reference Range Interpretation Comments Magnesium Lvl (test code = Magnesium 2.3 1.8-2.4 Lvl) [facility]2018-05-04 11:45:00 Test Item Value Reference Range Interpretation Comments Phosphorus (test code = Phosphorus) 3.5 2.5-4.5 [facility] HospitalElplzcoUMVXJGTRBW8427-18-40 11:45:00 Test Item Value Reference Range Interpretation Comments PT (test code = PT) 14.0 s 12.0-14.7 [facility] HospitalQpcyvtbKVFZZEIOEZ1210-24-65 11:45:00 Test Item Value Reference Range Interpretation Comments PTT (test code = PTT) 37.6 s 22.9-35.8 [facility] HospitalKspwjupABQURHQJEK7322-45-47 11:45:00 Test Item Value Reference Range Interpretation Comments INR (test code = INR) 1.08 1 0.85-1.17 [facility] BudaZfmdgyvPUHNPRLJLS4158-65-52 11:45:00 Test Item Value Reference Range Interpretation Comments C-REACTIVE PROTEIN (test code = 13.1 C-REACTIVE PROTEIN) [facility] BudaGiphsbaXSDCUQTRRM3197-03-75 11:45:00 Test Item Value Reference Range Interpretation Comments Prealbumin (test code = Prealbumin) 25.2 18.0-45.0 [facility]2018-05-04 03:06:00 Test Item Value Reference Range Interpretation Comments Lactic Acid Lvl (test code = Lactic 0.9 0.5-2.2 Acid Lvl) [facility] HospitalObcbucmTFDJDGWUZV7086-98-67 03:06:00 Test Item Value Reference Range Interpretation Comments Sed Rate (test code = 5 See_Comment [Auto mated message] The Sed Rate) system which ge nerated this result transmit lester reference range : <=15. The reference range was not used to interpr et this result as dany l/abnormal. [facility] BudaThgtwucBBAKALPBQT4187-34-27 03:06:00 Test Item Value Reference Range Interpretation Comments C-REACTIVE PROTEIN (test code = 15.8 C-REACTIVE PROTEIN) [facility]2018-05-04 03:06:00 Test Item Value Reference Range Interpretation Comments Lactic Acid Lvl (test code = Lactic 0.9 0.5-2.2 Acid Lvl) [facility] HospitalUtvmjryBXCNWHMNZE2983-02-53 03:06:00 Test Item Value Reference Range Interpretation Comments Sed Rate (test code = 5 See_Comment [Auto mated message] The Sed Rate) system which ge nerated this result transmit lester reference range : <=15. The reference range was not used to interpr et this result as dany l/abnormal. [facility] BudaAznnrbbKXNUQNJGBA1059-03-89 03:06:00 Test Item Value Reference Range Interpretation Comments C-REACTIVE PROTEIN (test code = 15.8 C-REACTIVE PROTEIN) [facility]2018-05-04 03:06:00 Test Item Value Reference Range Interpretation Comments Lactic Acid Lvl (test code = Lactic 0.9 0.5-2.2 Acid Lvl) [facility] HospitalVpvaehrYJSUDEMDIU3299-07-70 03:06:00 Test Item Value Reference Range Interpretation Comments Sed Rate (test code = 5 See_Comment [Auto mated message] The Sed Rate) system which ge nerated this result transmit lester reference range : <=15. The reference range was not used to interpr et this result as dany l/abnormal. [facility] BudaIzvujayLEWOQDIPOK8953-01-81 03:06:00 Test Item Value Reference Range Interpretation Comments C-REACTIVE PROTEIN (test code = 15.8 C-REACTIVE PROTEIN) [facility]2018-05-04 03:06:00 Test Item Value Reference Range Interpretation Comments Lactic Acid Lvl (test code = Lactic 0.9 0.5-2.2 Acid Lvl) [facility] HospitalOoatnzfVIWFUOAZGQ9120-56-09 03:06:00 Test Item Value Reference Range Interpretation Comments Sed Rate (test code = 5 See_Comment [Auto mated message] The Sed Rate) system which ge nerated this result transmit lester reference range : <=15. The reference range was not used to interpr et this result as dany l/abnormal. [facility] BudaSpzyttpRVIMFZKGFE4300-87-67 03:06:00 Test Item Value Reference Range Interpretation Comments C-REACTIVE PROTEIN (test code = 15.8 C-REACTIVE PROTEIN) [facility]2018-05-04 03:06:00 Test Item Value Reference Range Interpretation Comments Lactic Acid Lvl (test code = Lactic 0.9 0.5-2.2 Acid Lvl) [facility] HospitalZobirggVIQUJDFQWA6066-40-85 03:06:00 Test Item Value Reference Range Interpretation Comments Sed Rate (test code = 5 See_Comment [Auto mated message] The Sed Rate) system which ge nerated this result transmit lester reference range : <=15. The reference range was not used to interpr et this result as dany l/abnormal. [facility]udaEhgdjvqWIRYTPEEBI9716-97-45 03:06:00 Test Item Value Reference Range Interpretation Comments C-REACTIVE PROTEIN (test code = 15.8 C-REACTIVE PROTEIN) [facility]2018-05-04 03:06:00 Test Item Value Reference Range Interpretation Comments Lactic Acid Lvl (test code = Lactic 0.9 0.5-2.2 Acid Lvl) [id number] 03:06:00 Test Item Value Reference Range Interpretation Comments Sed Rate (test code = 5 See_Comment [Auto mated message] The Sed Rate) system which ge nerated this result transmit lester reference range : <=15. The reference range was not used to interpr et this result as dany l/abnormal. [facility] BudaOduevuaFWMLEXONNZ5474-02-17 03:06:00 Test Item Value Reference Range Interpretation Comments C-REACTIVE PROTEIN (test code = 15.8 C-REACTIVE PROTEIN) [facility]2018-05-04 03:06:00 Test Item Value Reference Range Interpretation Comments Lactic Acid Lvl (test code = Lactic 0.9 0.5-2.2 Acid Lvl) [facility] Hospit[id number] 03:06:00 Test Item Value Reference Range Interpretation Comments Sed Rate (test code = 5 See_Comment [Auto mated message] The Sed Rate) system which ge nerated this result transmit lester reference range : <=15. The reference range was not used to interpr et this result as dany l/abnormal. [facility] BudaOeuntksSMXDWOTREE4860-47-09 03:06:00 Test Item Value Reference Range Interpretation Comments C-REACTIVE PROTEIN (test code = 15.8 C-REACTIVE PROTEIN) [facility] HospitalPzkjnabBTZVEKYWWY2110-52-49 00:44:00 Test Item Value Reference Range Interpretation Comments PT (test code = PT) 13.0 s 12.0-14.7 [facility] HospitalThstnbcXZSMMERKMO4272-74-29 00:44:00 Test Item Value Reference Range Interpretation Comments INR (test code = INR) 0.98 1 0.85-1.17 [facility] HospitalEdxtjulOUSLZHIUSO9281-02-30 00:44:00 Test Item Value Reference Range Interpretation Comments PTT (test code = PTT) 33.2 s 22.9-35.8 [facility] HospitalKcdgfcaIYOJOZRVDU1653-00-12 00:44:00 Test Item Value Reference Range Interpretation Comments PT (test code = PT) 13.0 s 12.0-14.7 [facility] HospitalShrtwulCGGEZCORWG5142-83-13 00:44:00 Test Item Value Reference Range Interpretation Comments INR (test code = INR) 0.98 1 0.85-1.17 [facility] HospitalXnyhcipEDAGYSJJJE1309-56-27 00:44:00 Test Item Value Reference Range Interpretation Comments PTT (test code = PTT) 33.2 s 22.9-35.8 [facility] HospitalVgyonndFFCILAOMOO9561-35-90 00:44:00 Test Item Value Reference Range Interpretation Comments PT (test code = PT) 13.0 s 12.0-14.7 [facility] HospitalBqqhibtAPRPCJGPOC2358-19-55 00:44:00 Test Item Value Reference Range Interpretation Comments INR (test code = INR) 0.98 1 0.85-1.17 [facility] HospitalGlqaqlbCHLJLWEJGL8874-69-93 00:44:00 Test Item Value Reference Range Interpretation Comments PTT (test code = PTT) 33.2 s 22.9-35.8 [facility] HospitalCtnljgmDOMQPAOCQI6679-68-51 00:44:00 Test Item Value Reference Range Interpretation Comments PT (test code = PT) 13.0 s 12.0-14.7 [facility] HospitalAhmnhvuMBMXPIHMLR1787-64-78 00:44:00 Test Item Value Reference Range Interpretation Comments INR (test code = INR) 0.98 1 0.85-1.17 [facility] HospitalTpowtsmIEUSSOXBSN4975-20-48 00:44:00 Test Item Value Reference Range Interpretation Comments PTT (test code = PTT) 33.2 s 22.9-35.8 [facility] HospitalOidtnorAIHYPEUZFU6072-62-19 00:44:00 Test Item Value Reference Range Interpretation Comments PT (test code = PT) 13.0 s 12.0-14.7 [facility] HospitalPubhoceUSYWFPYISJ6160-88-53 00:44:00 Test Item Value Reference Range Interpretation Comments INR (test code = INR) 0.98 1 0.85-1.17 [facility] HospitalUuoqyfmLZVOTYGYON7425-70-08 00:44:00 Test Item Value Reference Range Interpretation Comments PTT (test code = PTT) 33.2 s 22.9-35.8 [facility] HospitalDguqdpqLGEUZLPJZG4581-95-69 00:44:00 Test Item Value Reference Range Interpretation Comments PT (test code = PT) 13.0 s 12.0-14.7 [facility] HospitalSexivrlBTHQPFZLFG0226-56-26 00:44:00 Test Item Value Reference Range Interpretation Comments INR (test code = INR) 0.98 1 0.85-1.17 [facility] HospitalYqwemalTNPYLCETSV3781-35-28 00:44:00 Test Item Value Reference Range Interpretation Comments PTT (test code = PTT) 33.2 s 22.9-35.8 [facility] HospitalLitvryiVHZDOYYVJZ9823-14-12 00:44:00 Test Item Value Reference Range Interpretation Comments PT (test code = PT) 13.0 s 12.0-14.7 [facility] HospitalBnzjmrsADXZNSJHQQ5766-20-03 00:44:00 Test Item Value Reference Range Interpretation Comments INR (test code = INR) 0.98 1 0.85-1.17 [facility] HospitalRrsgvtlFFOQVHRENZ0290-08-77 00:44:00 Test Item Value Reference Range Interpretation Comments PTT (test code = PTT) 33.2 s 22.9-35.8 [facility] [employer] [id number] 23:51:00 Test Item Value Reference Range Interpretation Comments Antibody Scrn (test Negative (11/14/17 6:51 code = Antibody Scrn) PM) [facility] [id number] 23:51:00 Test Item Value Reference Range Interpretation Comments ABO/Rh (test code = ABO/Rh) AB POS [facility] [employer] [id number] 23:51:00 Test Item Value Reference Range Interpretation Comments Antibody Scrn (test Negative (11/14/17 6:51 code = Antibody Scrn) PM) [facility]inteCelebCallsHotelbar [id number] 23:51:00 Test Item Value Reference Range Interpretation Comments ABO/Rh (test code = ABO/Rh) AB POS [facility] [id number] 23:51:00 Test Item Value Reference Range Interpretation Comments Antibody Scrn (test Negative (11/14/17 6:51 code = Antibody Scrn) PM) [facility] [id number] 23:51:00 Test Item Value Reference Range Interpretation Comments ABO/Rh (test code = ABO/Rh) AB POS [facility] [id number] 23:51:00 Test Item Value Reference Range Interpretation Comments Antibody Scrn (test Negative (11/14/17 6:51 code = Antibody Scrn) PM) [facility] [id number] 23:51:00 Test Item Value Reference Range Interpretation Comments ABO/Rh (test code = ABO/Rh) AB POS [facility] [id number] 23:51:00 Test Item Value Reference Range Interpretation Comments Antibody Scrn (test Negative (11/14/17 6:51 code = Antibody Scrn) PM) [facility] [id number] 23:51:00 Test Item Value Reference Range Interpretation Comments ABO/Rh (test code = ABO/Rh) AB POS [facility] [id number] 23:51:00 Test Item Value Reference Range Interpretation Comments Antibody Scrn (test Negative (11/14/17 6:51 code = Antibody Scrn) PM) [facility] [id number] 23:51:00 Test Item Value Reference Range Interpretation Comments ABO/Rh (test code = ABO/Rh) AB POS [facility] [id number] 23:51:00 Test Item Value Reference Range Interpretation Comments Antibody Scrn (test Negative (11/14/17 6:51 code = Antibody Scrn) PM) [facility] [id number] 23:51:00 Test Item Value Reference Range Interpretation Comments ABO/Rh (test code = ABO/Rh) AB POS [facility] AND [id number] 23:35:00 Test Item Value Reference Range Interpretation Comments UA Urobilinogen (test code = UA 0.2 0.1-1.0 Urobilinogen) [facility] AND [id number] 23:35:00 Test Item Value Reference Range Interpretation Comments UA Nitrite (test code Negative (11/14/17 6:35 = UA Nitrite) PM) [facility] AND [id number] 23:35:00 Test Item Value Reference Range Interpretation Comments UA Glucose (test code Negative (11/14/17 6:35 = UA Glucose) PM) [facility] AND [id number] 23:35:00 Test Item Value Reference Range Interpretation Comments UA Ketones (test code Negative *NA*(11/14/17 = UA Ketones) 6:35 PM) [facility] AND [id number] 23:35:00 Test Item Value Reference Range Interpretation Comments UA Bili (test code = Negative *NA*(11/14/17 UA Bili) 6:35 PM) [facility] AND [id number] 23:35:00 Test Item Value Reference Range Interpretation Comments UA Blood (test code = Trace *ABN*(11/14/17 UA Blood) 6:35 PM) [facility] AND [id number] 23:35:00 Test Item Value Reference Range Interpretation Comments UA Leuk Est (test code Small *ABN*(11/14/17 6:35 = UA Leuk Est) PM) [facility] AND [id number] 23:35:00 Test Item Value Reference Range Interpretation Comments UA Spec Grav (test code = UA Spec 1.020 1 Grav) [facility] AND [id number] 23:35:00 Test Item Value Reference Range Interpretation Comments UA pH (test code = UA pH) 6.0 1 5.0-8.0 [facility] AND [id number] 23:35:00 Test Item Value Reference Range Interpretation Comments UA Color (test code = Yellow *NA*(11/14/17 6:35 UA Color) PM) [facility] AND [id number] 23:35:00 Test Item Value Reference Range Interpretation Comments UA Protein (test code = Trace *ABN*(11/14/17 UA Protein) 6:35 PM) [facility] AND [id number] 23:35:00 Test Item Value Reference Range Interpretation Comments UA Turbidity (test code Slight Cloudy (11/14/17 = UA Turbidity) 6:35 PM) [facility] AND [id number] 23:35:00 Test Item Value Reference Range Interpretation Comments UA Hyal Cast 0-2 (11/14/17 6:35 See_Comment [Automated message] (test code = UA PM) The system w [facility] Hyal Cast) generated this result transmitted ref erence range: <=2. The reference range was not used to int erpret this result as normal/abnormal . [facility] AND [id number] 23:35:00 Test Item Value Reference Range Interpretation Comments UA Bacteria (test code = UA Occasional /HPF Bacteria) [facility] AND [id number] 23:35:00 Test Item Value Reference Range Interpretation Comments UA RBC (test code 11-20 /HPF See_Comment [Automate d message] The = UA RBC) system which ge nerated this result tra nsmitted reference range : <=2. The reference range was not used to interpr et this result as normal/abnormal . [facility] AND [id number] 23:35:00 Test Item Value Reference Range Interpretation Comments UA Sq Epi (test code = UA Sq Occasional /LPF Epi) [facility] AND [id number] 23:35:00 Test Item Value Reference Range Interpretation Comments UA WBC (test code = UA WBC) 51-100 /HPF [facility] AND [id number] 23:35:00 Test Item Value Reference Range Interpretation Comments UA Urobilinogen (test code = UA 0.2 0.1-1.0 Urobilinogen) [facility] AND [id number] 23:35:00 Test Item Value Reference Range Interpretation Comments UA Nitrite (test code Negative (11/14/17 6:35 = UA Nitrite) PM) [facility] AND [id number] 23:35:00 Test Item Value Reference Range Interpretation Comments UA Glucose (test code Negative (11/14/17 6:35 = UA Glucose) PM) [facility] AND [id number] 23:35:00 Test Item Value Reference Range Interpretation Comments UA Ketones (test code Negative *NA*(11/14/17 = UA Ketones) 6:35 PM) [facility] AND [id number] 23:35:00 Test Item Value Reference Range Interpretation Comments UA Bili (test code = Negative *NA*(11/14/17 UA Bili) 6:35 PM) [facility] AND [id number] 23:35:00 Test Item Value Reference Range Interpretation Comments UA Blood (test code = Trace *ABN*(11/14/17 UA Blood) 6:35 PM) [facility] AND [id number] 23:35:00 Test Item Value Reference Range Interpretation Comments UA Leuk Est (test code Small *ABN*(11/14/17 6:35 = UA Leuk Est) PM) [facility] AND [id number] 23:35:00 Test Item Value Reference Range Interpretation Comments UA Spec Grav (test code = UA Spec 1.020 1 Grav) [facility] AND [id number] 23:35:00 Test Item Value Reference Range Interpretation Comments UA pH (test code = UA pH) 6.0 1 5.0-8.0 [facility] AND [id number] 23:35:00 Test Item Value Reference Range Interpretation Comments UA Color (test code = Yellow *NA*(11/14/17 6:35 UA Color) PM) [facility] AND [id number] 23:35:00 Test Item Value Reference Range Interpretation Comments UA Protein (test code = Trace *ABN*(11/14/17 UA Protein) 6:35 PM) [facility] AND [id number] 23:35:00 Test Item Value Reference Range Interpretation Comments UA Turbidity (test code Slight Cloudy (11/14/17 = UA Turbidity) 6:35 PM) [facility] AND [id number] 23:35:00 Test Item Value Reference Range Interpretation Comments UA Hyal Cast 0-2 (11/14/17 6:35 See_Comment [Automated message] (test code = UA PM) The system w [facility] Hyal [employer]) generated this result transmitted ref erence range: <=2. The reference range was not used to int erpret this result as normal/abnormal . [facility] AND [id number] 23:35:00 Test Item Value Reference Range Interpretation Comments UA Bacteria (test code = UA Occasional /HPF Bacteria) [facility] AND [id number] 23:35:00 Test Item Value Reference Range Interpretation Comments UA RBC (test code 11-20 /HPF See_Comment [Automate d message] The = UA RBC) system which ge nerated this result tra nsmitted reference range : <=2. The reference range was not used to interpr et this result as normal/abnormal . [facility] AND [id number] 23:35:00 Test Item Value Reference Range Interpretation Comments UA Sq Epi (test code = UA Sq Occasional /LPF Epi) [facility] AND [id number] 23:35:00 Test Item Value Reference Range Interpretation Comments UA WBC (test code = UA WBC) 51-100 /HPF [facility] AND [id number] 23:35:00 Test Item Value Reference Range Interpretation Comments UA Urobilinogen (test code = UA 0.2 0.1-1.0 Urobilinogen) [facility] AND [id number] 23:35:00 Test Item Value Reference Range Interpretation Comments UA Nitrite (test code Negative (11/14/17 6:35 = UA Nitrite) PM) [facility] AND [id number] 23:35:00 Test Item Value Reference Range Interpretation Comments UA Glucose (test code Negative (11/14/17 6:35 = UA Glucose) PM) [facility] AND [id number] 23:35:00 Test Item Value Reference Range Interpretation Comments UA Ketones (test code Negative *NA*(11/14/17 = UA Ketones) 6:35 PM) [facility] AND [id number] 23:35:00 Test Item Value Reference Range Interpretation Comments UA Bili (test code = Negative *NA*(11/14/17 UA Bili) 6:35 PM) [facility] AND [id number] 23:35:00 Test Item Value Reference Range Interpretation Comments UA Blood (test code = Trace *ABN*(11/14/17 UA Blood) 6:35 PM) [facility] AND [id number] 23:35:00 Test Item Value Reference Range Interpretation Comments UA Leuk Est (test code Small *ABN*(11/14/17 6:35 = UA Leuk Est) PM) [facility] AND [id number] 23:35:00 Test Item Value Reference Range Interpretation Comments UA Spec Grav (test code = UA Spec 1.020 1 Grav) [facility] AND [id number] 23:35:00 Test Item Value Reference Range Interpretation Comments UA pH (test code = UA pH) 6.0 1 5.0-8.[address] [id number] 23:35:00 Test Item Value Reference Range Interpretation Comments UA Color (test code = Yellow *NA*(11/14/17 6:35 UA Color) PM) [facility] AND [id number] 23:35:00 Test Item Value Reference Range Interpretation Comments UA Protein (test code = Trace *ABN*(11/14/17 UA Protein) 6:35 PM) [facility] AND [id number] 23:35:00 Test Item Value Reference Range Interpretation Comments UA Turbidity (test code Slight Cloudy (11/14/17 = UA Turbidity) 6:35 PM) [facility] AND [id number] 23:35:00 Test Item Value Reference Range Interpretation Comments UA Hyal Cast 0-2 (11/14/17 6:35 See_Comment [Automated message] (test code = UA PM) The system w [facility] [employer]) generated this result transmitted ref erence range: <=2. The reference range was not used to int erpret this result as normal/abnormal . [facility] [id number] 23:35:00 Test Item Value Reference Range Interpretation Comments UA Bacteria (test code = UA Occasional /HPF Bacteria) [facility] AND [id number] 23:35:00 Test Item Value Reference Range Interpretation Comments UA RBC (test code 11-20 /HPF See_Comment [Automate d message] The = UA RBC) system which ge nerated this result tra nsmitted reference range : <=2. The reference range was not used to interpr et this result as normal/abnormal . [facility] [id number] 23:35:00 Test Item Value Reference Range Interpretation Comments UA Sq Epi (test code = UA Sq Occasional /LPF Epi) [facility] AND [id number] 23:35:00 Test Item Value Reference Range Interpretation Comments UA WBC (test code = UA WBC) 51-100 /HPF [facility] AND [id number] 23:35:00 Test Item Value Reference Range Interpretation Comments UA Urobilinogen (test code = UA 0.2 0.1-1.0 Urobilinogen) [facility] AND [id number] 23:35:00 Test Item Value Reference Range Interpretation Comments UA Nitrite (test code Negative (11/14/17 6:35 = UA Nitrite) PM) [facility] AND [id number] 23:35:00 Test Item Value Reference Range Interpretation Comments UA Glucose (test code Negative (11/14/17 6:35 = UA Glucose) PM) [facility] AND [id number] 23:35:00 Test Item Value Reference Range Interpretation Comments UA Ketones (test code Negative *NA*(11/14/17 = UA Ketones) 6:35 PM) [facility] AND [id number] 23:35:00 Test Item Value Reference Range Interpretation Comments UA Bili (test code = Negative *NA*(11/14/17 UA Bili) 6:35 PM) [facility] AND [id number] 23:35:00 Test Item Value Reference Range Interpretation Comments UA Blood (test code = Trace *ABN*(11/14/17 UA Blood) 6:35 PM) [facility] AND [id number] 23:35:00 Test Item Value Reference Range Interpretation Comments UA Leuk Est (test code Small *ABN*(11/14/17 6:35 = UA Leuk Est) PM) [facility] AND [id number] 23:35:00 Test Item Value Reference Range Interpretation Comments UA Spec Grav (test code = UA Spec 1.020 1 Grav) [facility] AND [id number] 23:35:00 Test Item Value Reference Range Interpretation Comments UA pH (test code = UA pH) 6.0 1 5.0-8.0 [facility] AND [id number] 23:35:00 Test Item Value Reference Range Interpretation Comments UA Color (test code = Yellow *NA*(11/14/17 6:35 UA Color) PM) [facility] AND [id number] 23:35:00 Test Item Value Reference Range Interpretation Comments UA Protein (test code = Trace *ABN*(11/14/17 UA Protein) 6:35 PM) [facility] AND [id number] 23:35:00 Test Item Value Reference Range Interpretation Comments UA Turbidity (test code Slight Cloudy (11/14/17 = UA Turbidity) 6:35 PM) [facility] AND [id number] 23:35:00 Test Item Value Reference Range Interpretation Comments UA Hyal Cast 0-2 (11/14/17 6:35 See_Comment [Automated message] (test code = UA PM) The system w [facility] [employer]) generated this result transmitted ref erence range: <=2. The reference range was not used to int erpret this result as normal/abnormal . [facility] AND [id number] 23:35:00 Test Item Value Reference Range Interpretation Comments UA Bacteria (test code = UA Occasional /HPF Bacteria) [facility] AND [id number] 23:35:00 Test Item Value Reference Range Interpretation Comments UA RBC (test code 11-20 /HPF See_Comment [Automate d message] The = UA RBC) system which ge nerated this result tra nsmitted reference range : <=2. The reference range was not used to interpr et this result as normal/abnormal . [facility] AND [id number] 23:35:00 Test Item Value Reference Range Interpretation Comments UA Sq Epi (test code = UA Sq Occasional /LPF Epi) [facility] AND [id number] 23:35:00 Test Item Value Reference Range Interpretation Comments UA WBC (test code = UA WBC) 51-100 /HPF [facility] AND [id number] 23:35:00 Test Item Value Reference Range Interpretation Comments UA Urobilinogen (test code = UA 0.2 0.1-1.0 Urobilinogen) [facility] AND [id number] 23:35:00 Test Item Value Reference Range Interpretation Comments UA Nitrite (test code Negative (11/14/17 6:35 = UA Nitrite) PM) [facility] AND [id number] 23:35:00 Test Item Value Reference Range Interpretation Comments UA Glucose (test code Negative (11/14/17 6:35 = UA Glucose) PM) [facility] AND [id number] 23:35:00 Test Item Value Reference Range Interpretation Comments UA Ketones (test code Negative *NA*(11/14/17 = UA Ketones) 6:35 PM) [facility] AND [id number] 23:35:00 Test Item Value Reference Range Interpretation Comments UA Bili (test code = Negative *NA*(11/14/17 UA Bili) 6:35 PM) [facility] AND [id number] 23:35:00 Test Item Value Reference Range Interpretation Comments UA Blood (test code = Trace *ABN*(11/14/17 UA Blood) 6:35 PM) [facility] AND [id number] 23:35:00 Test Item Value Reference Range Interpretation Comments UA Leuk Est (test code Small *ABN*(11/14/17 6:35 = UA Leuk Est) PM) [facility] AND [id number] 23:35:00 Test Item Value Reference Range Interpretation Comments UA Spec Grav (test code = UA Spec 1.020 1 Grav) [facility] AND [id number] 23:35:00 Test Item Value Reference Range Interpretation Comments UA pH (test code = UA pH) 6.0 1 5.0-8.0 [facility] AND [id number] 23:35:00 Test Item Value Reference Range Interpretation Comments UA Color (test code = Yellow *NA*(11/14/17 6:35 UA Color) PM) [facility] AND [id number] 23:35:00 Test Item Value Reference Range Interpretation Comments UA Protein (test code = Trace *ABN*(11/14/17 UA Protein) 6:35 PM) [facility] AND [id number] 23:35:00 Test Item Value Reference Range Interpretation Comments UA Turbidity (test code Slight Cloudy (11/14/17 = UA Turbidity) 6:35 PM) [facility] AND [id number] 23:35:00 Test Item Value Reference Range Interpretation Comments UA Hyal Cast 0-2 (11/14/17 6:35 See_Comment [Automated message] (test code = UA PM) The system w [facility] [employer]) generated this result transmitted ref erence range: <=2. The reference range was not used to int erpret this result as normal/abnormal . [facility] AND [id number] 23:35:00 Test Item Value Reference Range Interpretation Comments UA Bacteria (test code = UA Occasional /HPF Bacteria) [facility] AND [id number] 23:35:00 Test Item Value Reference Range Interpretation Comments UA RBC (test code 11-20 /HPF See_Comment [Automate d message] The = UA RBC) system which ge nerated this result tra nsmitted reference range : <=2. The reference range was not used to interpr et this result as normal/abnormal . [facility] AND [id number] 23:35:00 Test Item Value Reference Range Interpretation Comments UA Sq Epi (test code = UA Sq Occasional /LPF Epi) [facility] AND [id number] 23:35:00 Test Item Value Reference Range Interpretation Comments UA WBC (test code = UA WBC) 51-100 /HPF [facility] AND [id number] 23:35:00 Test Item Value Reference Range Interpretation Comments UA Urobilinogen (test code = UA 0.2 0.1-1.0 Urobilinogen) [facility] AND [id number] 23:35:00 Test Item Value Reference Range Interpretation Comments UA Nitrite (test code Negative (11/14/17 6:35 = UA Nitrite) PM) [facility] AND [id number] 23:35:00 Test Item Value Reference Range Interpretation Comments UA Glucose (test code Negative (11/14/17 6:35 = UA Glucose) PM) [facility] AND [id number] 23:35:00 Test Item Value Reference Range Interpretation Comments UA Ketones (test code Negative *NA*(11/14/17 = UA Ketones) 6:35 PM) [facility] AND [id number] 23:35:00 Test Item Value Reference Range Interpretation Comments UA Bili (test code = Negative *NA*(11/14/17 UA Bili) 6:35 PM) [facility] AND [id number] 23:35:00 Test Item Value Reference Range Interpretation Comments UA Blood (test code = Trace *ABN*(11/14/17 UA Blood) 6:35 PM) [facility] AND [id number] 23:35:00 Test Item Value Reference Range Interpretation Comments UA Leuk Est (test code Small *ABN*(11/14/17 6:35 = UA Leuk Est) PM) [facility] AND [id number] 23:35:00 Test Item Value Reference Range Interpretation Comments UA Spec Grav (test code = UA Spec 1.020 1 Grav) [facility] AND [id number] 23:35:00 Test Item Value Reference Range Interpretation Comments UA pH (test code = UA pH) 6.0 1 5.0-8.0 [facility] AND [id number] 23:35:00 Test Item Value Reference Range Interpretation Comments UA Color (test code = Yellow *NA*(11/14/17 6:35 UA Color) PM) [facility] AND [id number] 23:35:00 Test Item Value Reference Range Interpretation Comments UA Protein (test code = Trace *ABN*(11/14/17 UA Protein) 6:35 PM) [facility] AND [id number] 23:35:00 Test Item Value Reference Range Interpretation Comments UA Turbidity (test code Slight Cloudy (11/14/17 = UA Turbidity) 6:35 PM) [facility] AND [id number] 23:35:00 Test Item Value Reference Range Interpretation Comments UA Hyal Cast 0-2 (11/14/17 6:35 See_Comment [Automated message] (test code = UA PM) The system w [facility] Hyal Cast) generated this result transmitted ref erence range: <=2. The reference range was not used to int erpret this result as normal/abnormal . [facility] AND [id number] 23:35:00 Test Item Value Reference Range Interpretation Comments UA Bacteria (test code = UA Occasional /HPF Bacteria) [facility] AND [id number] 23:35:00 Test Item Value Reference Range Interpretation Comments UA RBC (test code 11-20 /HPF See_Comment [Automate d message] The = UA RBC) system which ge nerated this result tra nsmitted reference range : <=2. The reference range was not used to interpr et this result as normal/abnormal . [facility] AND [id number] 23:35:00 Test Item Value Reference Range Interpretation Comments UA Sq Epi (test code = UA Sq Occasional /LPF Epi) [facility] AND [id number] 23:35:00 Test Item Value Reference Range Interpretation Comments UA WBC (test code = UA WBC) 51-100 /HPF [facility] AND [id number] 23:35:00 Test Item Value Reference Range Interpretation Comments UA Urobilinogen (test code = UA 0.2 0.1-1.0 Urobilinogen) [facility] AND [id number] 23:35:00 Test Item Value Reference Range Interpretation Comments UA Nitrite (test code Negative (11/14/17 6:35 = UA Nitrite) PM) [facility] AND [id number] 23:35:00 Test Item Value Reference Range Interpretation Comments UA Glucose (test code Negative (11/14/17 6:35 = UA Glucose) PM) [facility] AND [id number] 23:35:00 Test Item Value Reference Range Interpretation Comments UA Ketones (test code Negative *NA*(11/14/17 = UA Ketones) 6:35 PM) [facility] AND [id number] 23:35:00 Test Item Value Reference Range Interpretation Comments UA Bili (test code = Negative *NA*(11/14/17 UA Bili) 6:35 PM) [facility] AND [id number] 23:35:00 Test Item Value Reference Range Interpretation Comments UA Blood (test code = Trace *ABN*(11/14/17 UA Blood) 6:35 PM) [facility] AND [id number] 23:35:00 Test Item Value Reference Range Interpretation Comments UA Leuk Est (test code Small *ABN*(11/14/17 6:35 = UA Leuk Est) PM) [facility] AND [id number] 23:35:00 Test Item Value Reference Range Interpretation Comments UA Spec Grav (test code = UA Spec 1.020 1 Grav) [facility] AND [id number] 23:35:00 Test Item Value Reference Range Interpretation Comments UA pH (test code = UA pH) 6.0 1 5.0-8.0 [facility] AND [id number] 23:35:00 Test Item Value Reference Range Interpretation Comments UA Color (test code = Yellow *NA*(11/14/17 6:35 UA Color) PM) [facility] AND [id number] 23:35:00 Test Item Value Reference Range Interpretation Comments UA Protein (test code = Trace *ABN*(11/14/17 UA Protein) 6:35 PM) [facility] AND [id number] 23:35:00 Test Item Value Reference Range Interpretation Comments UA Turbidity (test code Slight Cloudy (11/14/17 = UA Turbidity) 6:35 PM) [facility] AND [id number] 23:35:00 Test Item Value Reference Range Interpretation Comments UA Hyal Cast 0-2 (11/14/17 6:35 See_Comment [Automated message] (test code = UA PM) The system w [facility] Hyal Cast) generated this result transmitted ref erence range: <=2. The reference range was not used to int erpret this result as normal/abnormal . [facility] AND [id number] 23:35:00 Test Item Value Reference Range Interpretation Comments UA Bacteria (test code = UA Occasional /HPF Bacteria) [facility] AND [id number] 23:35:00 Test Item Value Reference Range Interpretation Comments UA RBC (test code 11-20 /HPF See_Comment [Automate d message] The = UA RBC) system which ge nerated this result tra nsmitted reference range : <=2. The reference range was not used to interpr et this result as normal/abnormal . [facility] AND [id number] 23:35:00 Test Item Value Reference Range Interpretation Comments UA Sq Epi (test code = UA Sq Occasional /LPF Epi) [facility] AND [id number] 23:35:00 Test Item Value Reference Range Interpretation Comments UA WBC (test code = UA WBC) 51-100 /HPF [id number] 23:20:00 Test Item Value Reference Range Interpretation Comments Basophils # (test code 0.1 See_Comment [Aut omated message] The = Basophils #) system which generated this result tra nsmitted reference range : <=0.2. The reference r boubacar was not used to int erpret this result as normal/abnormal . [facility] [id number] 23:20:00 Test Item Value Reference Range Interpretation Comments Polychrom (test code = Polychrom) Slight [facility] [id number] 23:20:00 Test Item Value Reference Range Interpretation Comments Plt Morph (test code = Normal (518 6:20 PM) Plt Morph) [facility] [id number] 23:20:00 Test Item Value Reference Range Interpretation Comments Basophils # (test code 0.1 See_Comment [Aut omated message] The = Basophils #) system which generated this result tra nsmitted reference range : <=0.2. The reference r boubacar was not used to int erpret this result as normal/abnormal . [facility] [id number] 23:20:00 Test Item Value Reference Range Interpretation Comments Polychrom (test code = Polychrom) Slight [facility] [id number] 23:20:00 Test Item Value Reference Range Interpretation Comments Plt Morph (test code = Normal (18 6:20 PM) Plt Morph) [facility] [id number] 23:20:00 Test Item Value Reference Range Interpretation Comments Basophils # (test code 0.1 See_Comment [Aut omated message] The = Basophils #) system which generated this result tra nsmitted reference range : <=0.2. The reference r boubacar was not used to int erpret this result as normal/abnormal . [facility] [id number] 23:20:00 Test Item Value Reference Range Interpretation Comments Polychrom (test code = Polychrom) Slight [facility] H[id number] 23:20:00 Test Item Value Reference Range Interpretation Comments Plt Morph (test code = Normal (18 6:20 PM) Plt Morph) [facility] [id number] 23:20:00 Test Item Value Reference Range Interpretation Comments Basophils # (test code 0.1 See_Comment [Aut omated message] The = Basophils #) system which generated this result tra nsmitted reference range : <=0.2. The reference r boubacar was not used to int erpret this result as normal/abnormal . [facility] H[id number] 23:20:00 Test Item Value Reference Range Interpretation Comments Polychrom (test code = Polychrom) Slight [facility] H[id number] 23:20:00 Test Item Value Reference Range Interpretation Comments Plt Morph (test code = Normal (518 6:20 PM) Plt Morph) [facility] [id number] 23:20:00 Test Item Value Reference Range Interpretation Comments Basophils # (test code 0.1 See_Comment [Aut omated message] The = Basophils #) system which generated this result tra nsmitted reference range : <=0.2. The reference r boubacar was not used to int erpret this result as normal/abnormal . [facility] H[id number] 23:20:00 Test Item Value Reference Range Interpretation Comments Polychrom (test code = Polychrom) Slight [facility] H[id number] 23:20:00 Test Item Value Reference Range Interpretation Comments Plt Morph (test code = Normal (18 6:20 PM) Plt Morph) [facility] [id number] 23:20:00 Test Item Value Reference Range Interpretation Comments Basophils # (test code 0.1 See_Comment [Aut omated message] The = Basophils #) system which generated this result tra nsmitted reference range : <=0.2. The reference r boubacar was not used to int erpret this result as normal/abnormal . [facility] H[id number] 23:20:00 Test Item Value Reference Range Interpretation Comments Polychrom (test code = Polychrom) Slight [facility] H[id number] 23:20:00 Test Item Value Reference Range Interpretation Comments Plt Morph (test code = Normal (18 6:20 PM) Plt Morph) [facility] H[id number] 23:20:00 Test Item Value Reference Range Interpretation Comments Basophils # (test code 0.1 See_Comment [Aut omated message] The = Basophils #) system which generated this result tra nsmitted reference range : <=0.2. The reference r boubacar was not used to int erpret this result as normal/abnormal . [facility] H[id number] 23:20:00 Test Item Value Reference Range Interpretation Comments Polychrom (test code = Polychrom) Slight [facility] H[id number] 23:20:00 Test Item Value Reference Range Interpretation Comments Plt Morph (test code = Normal (518 6:20 PM) Plt Morph) [facility]2017-06-16 16:22:00 Test Item Value Reference Range Interpretation Comments CULTURE (BEAKER) (test No growth in 5 days code = 1095) BLOOD [id number] 16:22:00 Test Item Value Reference Range Interpretation [...] Normal 762) CBC W/PLT COUNT & AUTO [id number] 22:28:00 Test Item Value Reference Range Interpretation [...] 0.00-0.20 (test code = 417) 0.000.520.000.000.000.00BASIC METABOLIC [id number] 11:11:00 Test Item Value Reference Range Interpretation [...] NOT APPLICABLE FOR DIALYSIS PATIEN TS. URINE [id number] 09:56:00 Test Item Value Reference Range Interpretation Comments CULTURE (BEAKER) (test <10,000 col/mL skin code = 1095) marilee COMPREHENSIVE METABOLIC [id number] 08:49:00 Test Item Value Reference Range Interpretation [...] PATIEN TS. CBC W/PLT COUNT & AUTO [id number] 08:46:00 Test Item Value Reference Range Interpretation [...] 0.00-0.20 (test code = 417) 0.00URINALYSIS W/ [id number] 20:36:00 Test Item Value Reference Range Interpretation [...] SOURCE(BEAKER) (test code = 2795) BASIC METABOLIC [id number] 17:00:00 Test Item Value Reference Range Interpretation [...] Specimen slightly ictericCBC W/PLT COUNT & AUTO [id number] 12:18:00 Test Item Value Reference Range Interpretation [...]
[2022-12-06 13:24] LABS: Absolute Lymphocytes (CBC) 1.7 K/uL (0.7-4.9); Hematocrit 26.6 % (39.6-49.0); Lymphocytes % 12.9 % (15.3-44.8); MCV 90.1 fL (80-100); MPV 7.4 fL (7.6-11.3); RBC Red Blood Cell Count 2.95 M/uL (4.33-5.43)
[2022-12-06 13:32] LABS: Protime INR 1.22
[2022-12-06 13:45] LABS: Albumin 2.5 g/dL (3.4-5.0); Bilirubin Total 2.5 mg/dL (0.2-1.0); Potassium 3.9 mEq/L (3.5-5.1); Protein, Total 8.1 g/dL (6.4-8.2)
--- NOTE | 2022-12-06 14:20 | RAD REPORT ---
EXAM DESCRIPTION: CT - Chest For Pe Angio - 12/06/2022 2:02 pm CLINICAL HISTORY: Chest pain COMPARISON: November 30, 2022 TECHNIQUE: Dynamically enhanced axial 3 mm thick images of the chest were obtained during administra tion of 100 mL Isovue 370 IV contrast. Coronal and oblique reconstruction images were generated and r eviewed. Exam utilizes a protocol for optimal evaluation of pulmonary arterial tree. Maximum intensity projections 3D imaging was utilized All CT scans are performed using dose optimization technique as appropriate and may include automated exposure control or mA/KV adjustment according to patient size. FINDINGS: Opacification of pulmonary arteries is suboptimal. No gross central pulmonary embolus seen . A thoracic aortic aneurysm is not noted. A pleural effusion is not seen. A pericardial effusion is not seen. Areas of atelectasis lower lobes IMPRESSION: No gross evidence of a pulmonary embolus
--- NOTE | 2022-12-06 14:29 | RAD REPORT ---
EXAM DESCRIPTION: CT - Abdomen Pelvis W Contrast - 12/06/2022 2:02 pm CLINICAL HISTORY: Abdominal pain COMPARISON: 2021 TECHNIQUE: Computed axial tomography of the abdomen pelvis was obtained. 100 cc Isovue-300 was admin istered intravenously. Oral contrast was not requested which limits evaluation of bowel and appendix All CT scans are performed using dose optimization technique as appropriate and may include automated exposure control or mA/KV adjustment according to patient size. FINDINGS: Liver, spleen, pancreas, adrenals and kidneys are unremarkable [employer] shunt with its tip right abdomen. Small amount of ascites. Suprapubic catheter in place Prominent stool within the rectum/anus and surrounding tissue. No evidence of diverticulitis. Spina bifida. Soft tissue defect midline anterior subcutaneous tissues level of the iliac crests IMPRESSION: Soft tissue defect midline anterior subcutaneous tissues level of the iliac crests eithe r postsurgical or dehiscence
[2022-12-06] MEDS ORDERED: NA CHLORIDE 0.9% 500 ML ONE (14:45)
[2022-12-06] MEDS ORDERED: HYDROMORPHONE ORAL 2 MG TAB ONE (14:45)
--- NOTE | 2022-12-06 15:29 | EDPHYS ---
Physician Documentation [facility] Name: Roland Feldman Jr Age: 37 yrs Sex: Male : 1985 Arrival Date: 12/06/2022 Time: 11:55 Bed 19 Private MD: ED Physician Juan Jose Winchester HPI: 12/06 14:40 This 37 yrs old Black Male presents to ER via EMS with complaints of Pain All Over. bs3 14:40 Patient has a complex history of asthma, possible CP, spina bifida, cluster headaches bs3 he has decubitus ulcers he most recently was hospitalized here and actually during a abdominal procedure suffered a cardiac arrest requiring intubation and discontinuation of the procedure he is status post suprapubic catheter placement presents with abdominal pain he notes that he has been unable to take his pain medicine because he has not seen his pain doctor and he came in today after being discharged yesterday he notes chronic abdominal pain denies chest pain or shortness of breath denies fevers or chills. Historical: - Allergies: 12:01 Amoxicillin; kc6 12:01 Bactrim; kc6 12:01 Ciprofloxacin; kc6 12:01 CLAVULANIC ACID; kc6 12:01 Demerol; kc6 12:01 Doxycycline; kc6 12:01 Levofloxacin; kc6 12:01 Morphine; kc6 12:01 PENICILLINS; kc6 12:01 Toradol; kc6 12:01 TRIMETHOPRIM; kc6 12:01 Vancomycin; kc6 12:01 Zofran; kc6 - PMHx: 12:01 Asthma; Cerebral Palsy; cluster headaches; decubitus ulcers on feet; diabetes mellitus; kc6 GERD; Hydrocephalus; Hypertension; spina bifida; - PSHx: 12:01 Cholecystectomy; Shunt Revision; kc6 - Immunization history:: Client reports receiving the 2nd dose of the Covid vaccine, Flu vaccine is up to date. - Social history:: Smoking status: Patient reports the use of cigarette tobacco products, smokes one pack cigarettes per day. ROS: 14:40 Constitutional: Negative for fever, chills bs3 14:40 All other systems are negative. Exam: 14:40 Constitutional: This is a well developed, well nourished patient who is awake, alert, bs3 and in no acute distress. Head/Face: Normocephalic, atraumatic. Eyes: Pupils equal round and reactive to light, extra-ocular motions intact. Lids and lashes normal. ENT: mmm, no posterior phyarngeal erythema Neck: Trachea midline, no thyromegaly, no neck stiffness Chest/axilla: Normal chest wall appearance and motion. Nontender with no deformity. No lesions are appreciated. Cardiovascular: Tachycardic, no murmur Respiratory: Lungs have equal breath sounds bilaterally, clear to auscultation, no respiratory distress Abdomen/GI: Soft, he has a bandage on his abdomen he has iftikhar in place his wound is clean dry and intact he has a suprapubic catheter MS/ Extremity: Pulses equal, no cyanosis. Neurovascular intact. His bilateral lower extremities have slight edema he has external rotation of his feet bilaterally chronic discoloration of his lower extremities Neuro: Awake and alert, GCS 15, oriented to person, place, time, and situation. Cranial nerves II-XII grossly intact. Motor strength 5/5 in all extremities. Sensory grossly intact. 15:29 Sinus tachy[address] elevation or depression QTc 460 as interpreted by myself bs3 Vital Signs: 11:59 BP 111 / 83; Pulse 124; Resp 14 S; Temp 98.7(O); Pulse Ox 93% on R/A; Weight 127.01 kg kc6 (R); Height 4 ft. 11 in. (R); Pain 10/10; 13:34 BP 114 / 72; Pulse 119; Resp 22 S; Pulse Ox 94% on R/A; kc6 14:17 BP 111 / 52; Pulse 118; Resp 16 S; Pulse Ox 94% on R/A; kc6 15:13 BP 122 / 83; Pulse 98; Resp 13 S; Pulse Ox 91% on R/A; kc6 11:59 Body Mass Index 56.55 (127.01 kg, 149.86 cm) kc6 11:59 Pain Scale: Adult kc6 MDM: 11:59 Patient medically screened. bs3 14:40 Data reviewed: vital signs, nurses notes. ED course: Patient here with chronic bs3 abdominal pain after being discharged yesterday I reviewed the prior chart they attempted to place him in a group home but were unsuccessful his abdominal exam is difficult secondary to his obesity he has tachycardic here and slightly hypoxic will evaluate for pulmonary embolism given recent hospitalization we will do CT abdomen pelvis we will do serial exams we will hydrate there may be also be a component of chronic pain his work-up was nondiagnostic his labs were notable for slightly elevated bilirubin and LFTs however his CT was nondiagnostic I reviewed his prior chart and he was discharged yesterday with a heart rate of 117 and O2 sat of 90 his current vital signs are not significantly changed from prior he has an extremely high 30-day chance of dying however there is no acute change in his condition based on my initial work-up here. 15:24 ED course: labs notable for elevated bili but ct neg, pt without new leukocytosis, hgb bs3 unchanged from prior, I discussed with Dr. Azevedo and Nichole and reviewed everything and pt stable for discharge, but has a high liklihood of return. . 12/06 12:06 Order name: CBC with Diff; Complete Time: 13:36 bs3 12/06 12:06 Order name: CMP; Complete Time: 14:18 [facility] 12/06 12:06 Order name: Lipase; Complete Time: 14:18 3 12/06 12:06 Order name: Urinalysis w/ reflexes; Complete Time: 13:08 3 12/06 12:06 Order name: Blood Culture Adult (2) bs 12/06 12:06 Order name: Lactate w/ 2H reflex if indic.; Complete Time: 14:18 3 12/06 12:06 Order name: Protime (+inr); Complete Time: 13:36 3 12/06 12:06 Order name: Ptt, Activated; Complete Time: 13:36 [facility] 12/06 12:39 Order name: Glucose, Ancillary Testing; Complete Time: 13:08 [facility] 12/06 12:40 Order name: Glucose, Ancillary Testing [facility] 12/06 12:45 Order name: Urine Culture [facility] 12/06 12:06 Order name: CT Abd/Pelvis - IV Contrast Only; Complete Time: 14:32 bs3 12/06 12:06 Order name: CT Chest For PE Angio; Complete Time: 14:32 bs3 12/06 12:06 Order name: EKG; Complete Time: 12:07 bs3 12/06 12:06 Order name: IV Saline Lock; Complete Time: 13:27 bs3 12/06 12:06 Order name: Labs collected and sent; Complete Time: 13:27 bs3 12/06 12:06 Order name: Accucheck; Complete Time: 12:29 bs3 12/06 12:06 Order name: Cardiac monitoring; Complete Time: 12:06 bs3 12/06 12:06 Order name: EKG - Nurse/Tech; Complete Time: 12:16 bs3 12/06 12:06 Order name: IV Saline Lock - Large Bore; Complete Time: 13:26 bs3 12/06 12:06 Order name: O2 Per Protocol; Complete Time: 12:06 bs3 12/06 12:06 Order name: O2 Sat Monitoring; Complete Time: 12:06 bs3 12/06 12:06 Order name: Vital Signs; Complete Time: 12:06 bs3 Administered Medications: 12:24 Not Given (Patient Refused; allergy): Ondansetron IVP 4 mg IVP once; over 2 minutes kc6 13:13 Drug: NS 0.9% IV 1000 ml Route: IV; Rate: 1 bolus; Site: left forearm; kc6 14:42 Follow up: Response: No adverse reaction; IV Status: Completed infusion; IV Intake: kc6 1000ml 13:33 Drug: Rocephin IV 1 grams Route: IV; Rate: 1 bolus; Site: left forearm; kc6 14:43 Follow up: Response: No adverse reaction; IV Status: Completed infusion; IV Intake: 53dhme4 14:42 Drug: NS 0.9% IV 500 ml Route: IV; Rate: bolus; Site: left forearm; kc6 15:41 Follow up: Response: No adverse reaction; IV Status: Completed infusion; IV Intake: kc6 500ml 14:42 Drug: HYDROmorphone PO 2 mg Route: PO; kc6 15:41 Follow up: Response: No adverse reaction; Pain is decreased; RASS: Alert and Calm (0) kc6 Disposition Summary: 12/06/22 15:28 Discharge Ordered Location: Home bs3 Problem: chronic bs3 Symptoms: are unchanged bs3 Condition: Fair bs3 Diagnosis - Abdominal pain, Generalized bs3 Followup: bs3 - With: Eren Varela MD - When: 48 Hours - Reason: Re-evaluation by your physician Discharge Instructions: - Discharge Summary Sheet bs3 - Abdominal Pain, Adult bs3 Forms: - Medication Reconciliation Form bs3 - Thank You Letter bs3 - Antibiotic Education bs3 - Prescription Opioid Use bs3 Signatures: Dispatcher [employer] Katerina Bailon RN RN kc6 Juan Jose Winchester MD MD bs3
--- NOTE | 2022-12-06 15:29 | ER ---
Nurse's Notes [facility] Name: Roland Feldamn Jr Age: 37 yrs Sex: Male : 1985 Arrival Date: 12/06/2022 Time: 11:55 Bed 19 Private MD: Diagnosis: Abdominal pain, Generalized Presentation: 12/06 11:59 Chief complaint: EMS states: pt had a failed colostomy surgery last week where he coded kc6 on the table twice. surgery was then held and the patient was sent home yesterday. today the patient reports continued breakthrough pain. Coronavirus screen: Vaccine status: Patient reports receiving the 2nd dose of the covid vaccine. At this time, the client does not indicate any symptoms associated with coronavirus-19. Ebola Screen: No symptoms or risks identified at this time. Initial Sepsis Screen: Does the patient meet any 2 criteria? HR > 90 bpm. Does the patient have a suspected source of infection? No. Patient's initial sepsis screen is negative. Risk Assessment: Do you want to hurt yourself or someone else? Patient reports no desire to harm self or others. Onset of symptoms was December 06, 2022. 11:59 Method Of Arrival: EMS: [facility] kc6 11:59 Acuity: YUKI 3 kc6 Triage Assessment: 12:01 General: Appears in no apparent distress. uncomfortable, obese, Behavior is calm, kc6 cooperative, appropriate for age. Pain: Complains of pain in "all over" Pain currently is 10 out of 10 on a pain scale. Is continuous. EENT: No signs and/or symptoms were reported regarding the EENT system. Neuro: Emerson Agitation-Sedation Scale (RASS): 0 - Alert and Calm Level of Consciousness is awake, alert, obeys commands, Oriented to person, place, time, situation, Appropriate for age. Cardiovascular: Heart tones S1 S2 present Capillary refill < 3 seconds Rhythm is sinus tachycardia. Respiratory: Airway is patent Trachea midline Respiratory effort is even, unlabored, Respiratory pattern is regular, symmetrical. GI: Abdomen is round non-distended, Bowel sounds present X 4 quads. Abd is soft X 4 quads Abdomen is tender to palpation X 4 quads. Patient currently denies diarrhea, nausea, vomiting, abdominal binder in place. : suprapubic catheter in place Urine is blood tinged. Derm: Skin is pink, warm \\T\\ dry. Wound noted left foot Wound is covered with a dressing that is clean and dry. Musculoskeletal: No signs and/or symptoms reported regarding the musculoskeletal system. Circulation, motion, and sensation intact. Capillary refill < 3 seconds, Range of motion: limited in right and left leg. Historical: - Allergies: 12:01 Amoxicillin; kc6 12:01 Bactrim; kc6 12:01 Ciprofloxacin; kc6 12:01 CLAVULANIC ACID; kc6 12:01 Demerol; kc6 12:01 Doxycycline; kc6 12:01 Levofloxacin; kc6 12:01 Morphine; kc6 12:01 PENICILLINS; kc6 12:01 Toradol; kc6 12:01 TRIMETHOPRIM; kc6 12:01 Vancomycin; kc6 12:01 Zofran; kc6 - PMHx: 12:01 Asthma; Cerebral Palsy; cluster headaches; decubitus ulcers on feet; diabetes mellitus; kc6 GERD; Hydrocephalus; Hypertension; spina bifida; - PSHx: 12:01 Cholecystectomy; Shunt Revision; kc6 - Immunization history:: Client reports receiving the 2nd dose of the Covid vaccine, Flu vaccine is up to date. - Social history:: Smoking status: Patient reports the use of cigarette tobacco products, smokes one pack cigarettes per day. Screenin:05 [facility] ED Fall Risk Assessment (Adult) History of falling in the last 3 months, kc6 including since admission No falls in past 3 months (0 pts) Confusion or Disorientation No (0 pts) Intoxicated or Sedated No (0 pts) Impaired Gait Yes (1 pt) Mobility Assist Device Used Yes (1 pt) Altered Elimination Yes (1 pt) Score/Fall Risk Level 3 or more points = High Risk Oriented to surroundings, Maintained a safe environment, Educated pt \\T\\ family on fall prevention, incl call for assistance when getting out of bed, Assessed \\T\\ reinforced patient's understanding of fall precautions, Hourly rounding (assess needs \\T\\ fall precautionary measures) done. Abuse screen: Denies threats or abuse. Denies injuries from another. Nutritional screening: No deficits noted. Tuberculosis screening: No symptoms or risk factors identified. Assessment: 12:04 Reassessment: please see triage assessment. kc6 12:25 Reassessment: Opal Rizo RN at bedside for ultrasounds guided IV. kc6 13:04 Reassessment: Patient appears in no apparent distress at this time. No changes from [facility] previously documented assessment. Patient and/or family updated on plan of care and expected duration. Pain level reassessed. Patient is alert, oriented x 3, equal unlabored respirations, skin warm/dry/pink. 14:17 Reassessment: Patient appears in no apparent distress at this time. No changes from [facility] previously documented assessment. Patient and/or family updated on plan of care and expected duration. Pain level reassessed. Patient is alert, oriented x 3, equal unlabored respirations, skin warm/dry/pink. 15:13 Reassessment: Patient appears in no apparent distress at this time. No changes from [facility] previously documented assessment. Patient and/or family updated on plan of care and expected duration. Pain level reassessed. Patient is alert, oriented x 3, equal unlabored respirations, skin warm/dry/pink. 15:38 Reassessment: d/c pending transport back to [facility] in [address] Vital Signs: 11:59 BP 111 / 83; Pulse 124; Resp 14 S; Temp 98.7(O); Pulse Ox 93% on R/A; Weight 127.01 kg kc6 (R); Height 4 ft. 11 in. (R); Pain 10/10; 13:34 BP 114 / 72; Pulse 119; Resp 22 S; Pulse Ox 94% on R/A; kc6 14:17 BP 111 / 52; Pulse 118; Resp 16 S; Pulse Ox 94% on R/A; kc6 15:13 BP 122 / 83; Pulse 98; Resp 13 S; Pulse Ox 91% on R/A; kc6 11:59 Body Mass Index 56.55 (127.01 kg, 149.86 cm) kc6 11:59 Pain Scale: Adult [facility] ED Course: 11:59 Patient arrived in ED. kc6 11:59 Juan Jose Winchester MD is Attending Physician. bs3 12:01 Triage completed. kc6 12:01 Arm band placed on. kc6 12:05 Patient has correct armband on for positive identification. Placed in gown. Bed in low kc6 position. Call light in reach. Side rails up X2. 12:06 Katerina Seth, NAIF is Primary Nurse. kc6 12:16 EKG done, by ED staff, reviewed by Juan Jose Winchester MD. em1 12:20 Radiology exam delayed due to IV insertion attempt and/or patient not having ls3 appropriate IV at this time. 12:29 Urinalysis w/ reflexes Sent. kc6 13:00 Missed attempt(s): 20 gauge in right antecubital area. Bleeding controlled, band aid nj1 applied, catheter tip intact. 13:04 Inserted saline lock: 20 gauge in left forearm, using aseptic technique. ,using aseptic nj1 technique. Ultrasound guided, catheter tip well visualized within vasculature during placement. Blood collected. 13:04 First set of blood cultures drawn by me. nj1 14:03 CT Abd/Pelvis - IV Contrast Only In Process Unspecified. EDMS 14:04 CT Chest For PE Angio In Process Unspecified. EDMS 15:27 Eren Varela MD is Referral Physician. bs3 Administered Medications: 12:24 Not Given (Patient Refused; allergy): Ondansetron IVP 4 mg IVP once; over 2 minutes kc6 13:13 Drug: NS 0.9% IV 1000 ml Route: IV; Rate: 1 bolus; Site: left forearm; kc6 14:42 Follow up: Response: No adverse reaction; IV Status: Completed infusion; IV Intake: kc6 1000ml 13:33 Drug: Rocephin IV 1 grams Route: IV; Rate: 1 bolus; Site: left forearm; kc6 14:43 Follow up: Response: No adverse reaction; IV Status: Completed infusion; IV Intake: 01utaq6 14:42 Drug: NS 0.9% IV 500 ml Route: IV; Rate: bolus; Site: left forearm; kc6 15:41 Follow up: Response: No adverse reaction; IV Status: Completed infusion; IV Intake: kc6 500ml 14:42 Drug: HYDROmorphone PO 2 mg Route: PO; kc6 15:41 Follow up: Response: No adverse reaction; Pain is decreased; RASS: Alert and Calm (0) kc6 Intake: 14:42 IV: 1000ml; Total: 1000ml. kc6 14:43 IV: 10ml; Total: 1010ml. kc6 15:41 IV: 500ml; Total: 1510ml. kc6 Outcome: 15:28 Discharge ordered by . bs3 16:18 Patient left the ED. kj1 Signatures: Dispatcher [employer] JESSICA Matthieu Stephens em1 Cr Mejia ls3 Madeline Olivas kj1 Katerina Seth RN RN kc6 Juan Jose Winchester MD MD bs3 Opal Rizo RN RN nj1 Corrections: (The following items were deleted from the chart) 12:34 11:59 Chief complaint: EMS states: pt had a failed colostomy surgery last week where he kc6 coded on the table twice. surgery was then held and they patient was sent home yesterday. today the patient reports continued breakthrough pain. kc6
[2022-12-06 16:28] VITALS: TEMP 98.7
[2022-12-06 16:44] VITALS: BP 122/83; O2SAT 91
--- NOTE | 2022-12-09 07:33 | EKG ---
Test Date: 2022-12-06 Test Time: 12:13:06 Preschool Assistant: RAMIRO MEASUREMENT RESULTS: Intervals: Rate: 121 UT: 134 QRSD: 84 QT: 324 QTc: 460 [place]: P: 47 UT: 134 QRS: 40 T: 37 INTERPRETIVE STATEMENTS: Sinus tachycardia Otherwise normal ECG Compared to ECG 11/27/2022 16:07:51 ST (T wave) deviation no longer present Electronically Signed On 12-09-22 07:26:11 CDT by Justin Heredia
== END 2022-12-06 16:18 | disposition home or self-care (01) ==
LOC: ER 11:55
DX: R10.84 Generalized abdominal pain (principal); E11.9 Type 2 diabetes mellitus without complications; I10 Essential (primary) hypertension; F17.210 Nicotine dependence, cigarettes, uncomplicated; I25.2 Old myocardial infarction; Q05.9 Spina bifida, unspecified; Z88.0 Allergy status to penicillin; Z88.1 Allergy status to other antibiotic agents; Z88.3 Allergy status to other anti-infective agents; Z88.5 Allergy status to narcotic agent; Z88.8 Allergy status to other drugs, medicaments and biological substances
CPT/HCPCS: 96365; 96361; 93005; 87040 ×2; 87088; 85025; 81001; 87086; 36415; 85610; 82947; 83605; 85730; 83690; 80053; 71275; 74177; 99284; Q9967; J7040; J7030; J0696; J2405

== ENCOUNTER 2022-12-24 14:33 | Emergency (ER) | payer OTHER ==
--- OUTSIDE RECORDS SUMMARY | 2022-12-24 15:47 | XMS REPORT | Continuity of Care Document ---
:1985 Author Organization [facility] t Address [address] [place] [address] Support Name Relationship Address Phone LAMAR NGUYEN Mother [address] [place] [phone] one else per patient, No Unavailable Unavailable Unavail able GAST[address]OT[address]LAMAR [address] [place] [id number] Karen Nguyen Unavailable [address] [phone] [place] [address] Lana Nguyen Unavailable Unavailable [phone] Gaston LincolnKaren Unavailable [address] [place] [address] Lamar Nguyen Mother [address] [phone] [place] [phone] PATIENT, NO ONE ELSE PER Unavailable Unavailable Unavail able PHYILLIS Grandparent Unavailable Unavailable LAMAR NGUYEN M [address] [place] [id number] Lamar Linares Mother [address] [place] [phone] HOSSEIN, LISA Grandparent Unavailable KAREN NGUYEN F [address] Unavailable [place] [address] O'GALDINO, LISA NOEMÍ Grandparent [address] Unavailable [place] [address] Noemí O'Galdino, Lisa Grandparent [address] [place] [address] Gaston Sr., Karen Father [address] [phone] [place] [address] Care Team Providers Name Role Phone Sharpless Primary Care Physician Eren Varela Attending Clinician Unavailable Ann Horan Attending Clinician ALHAJI INMAN Attending Clinician Unavailable Mayank [facility], Ursula Herrera Attending Clinician Unavailable SUZANNE BLANKENSHIP Attending Clinician Unavailable Suzanne Blankenship MD Attending Clinician Yudi Holloway MD Attending Clinician Doctor Unassigned, [place] Attending Clinician Unavailable YUDI HOLLOWAY Attending Clinician Unavailable JENNIFER OLIVERA Attending Clinician Unavailable Jennifer Olivera MD Attending Clinician Alhaji Inman MD Attending Clinician LYNETTE FONSECA Attending Clinician Unavailable Lynette Fonseca NP Attending Clinician Nurse, Adc Surgery Gu Attending Clinician Unavailable MADONNA HELMS Attending Clinician Unavailable Madonna Preciado Attending Clinician Kamila Zepeda LVN Attending Clinician AB WOLFF Attending Clinician Unavailable AB WOLFF Attending Clinician Unavailable Diomedes Lester Attending Clinician Dontae Talley MD Attending Clinician Mejia Villavicencio MD Attending Clinician Randall Valenzuela Attending Clinician Unavailable Diomedes NUNO, Gasper Attending Clinician [phone] JONATHAN SANFORD Attending Clinician Unavailable Jonathan Sanford DO Attending Clinician Raul DISLA, Lisbeth Colón Attending Clinician SUSAN ADHIKARI Attending Clinician Unavailable Susan Adhikari DO Attending Clinician COURTNEY MENDES Attending Clinician Unavailable Courtney Mendes MD Attending Clinician Lab, Ang - Db Attending Clinician Unavailable NEGAR GUARDADO Attending Clinician Unavailable Negar Guardado DO Attending Clinician STEPHANIE BALDERRAMA Attending Clinician Unavailable Jamal OPTOMETRY TEACHER, Stephanie Quiles Attending Clinician CARMELITA SERNA Attending Clinician Unavailable Carmelita Serna MD Attending Clinician KAYLEE ARGUETA Attending Clinician Unavailable Kaylee Argueta MD Attending Clinician OGUNLANA, SARAH BETH A Attending Clinician Unavailable [place] DISLA, Vesta Petit Attending Clinician Unavailable Renetta NUNO, Concetta Attending Clinician Christiano DISLA, Kristie Johnson Attending Clinician VICTORINO CONROY Attending Clinician Unavailable Harry ROMO, Vic Agrawal Attending Clinician Edwardo NUNO, Royer Suárez Attending Clinician [phone] Michelle NUNO, Bret Burton Attending Clinician Mayank NUNO, Adonis G Attending Clinician Victorino Conroy MD Attending Clinician Heide Abraham MD Attending Clinician Francisco NUNO, Huy Johnson Attending Clinician Beverly PEREA, Sarah Beth A Attending Clinician [phone] KENDALL CONNOLLY Attending Clinician Unavailable Carlene Montgomery S Attending Clinician Kendall Connolly MD Attending Clinician SHAHBAZ BUENROSTRO Attending Clinician Unavailable Randall Sands MD Attending Clinician COMPA BUENROSTRO Attending Clinician Unavailable Chitra NUNO, Compa Attending Clinician Vadim Ferreira APN Attending Clinician Alex ROMO, Mario Attending Clinician KIRIT LARA Attending Clinician Unavailable Vito Mckeon MD Attending Clinician Thomas León MD Attending Clinician Daily Burger MD Attending Clinician Kirit Lara MD Attending Clinician Unavailable EDILBERTO ALEXIS Attending Clinician Unavailable Edilberto Alexis Attending Clinician Danita Josemanuel Dustin Attending Clinician Roger NEFF Attending Clinician Unavailable [...] Clinician Unavailable Zahra Whitt Admitting Clinician Josemanuel SamayoaAdelina Admitting Clinician Roger NEFF Admitting Clinician Unavailable STEPHANIE BALDERRAMA Admitting Clinician Unavailable LYNETTE FONSECA Admitting Clinician Unavailable ROBERT JOHNSON Admitting Clinician Unavailable Dalton Molina Admitting Clinician Ruth Quesada Admitting Clinician JAQUELIN GENAO Admitting Clinician Unavailable Payers Payer Name Policy Type Policy Number Effective Date Expiration Date S samir [employer] [place] [id number] 2020 PLUS 00:00:00 [id number]Med[facility] [id number] Common (Medicaid) [facility] [id number] Common (Medicaid) [facility] [id number] Common (Medicaid) [facility] [id number] Common (Medicaid) [facility] Problems Condition Condition Condition Status Onset Resolution Last Treating Co mments Source Name Details Category Date Date Treatment Clinician Date Hyperglyce Hyperglyce Disease Active U nivers pedro due to pedro due to 2-21 it y of diabetes diabetes 00:00: [place] mellitus mellitus 00 Medica l Branch Weakness Weakness Disease Active Unive rs 2-01 ity of 00:00: [place] 00 Medical Branch Lactic Lactic Disease Active 2021-07 Univers acidosis acidosis 1-06 ity of 00:00: [place] 00 Medical Branch Nausea and Nausea and Disease Active 2021-07 U nivers vomiting, vomiting, 0-21 ity of unspecifie [place] d vomiting 00 Me dical type type Branch Chest pain Chest pain Disease Active U nivers 8-04 ity of 00:00: [place] 00 Medical Branch Foot ulcer Foot ulcer Disease Active Overview : Univers with fat with fat 803 Formattin ity of layer layer 00:00: g of this [place] exposed, exposed, 00 note Medica l left left might be Branch different from the original. Added automatic ally from request for surgery [id number] Right foot Right foot Disease Active Overview : Univers ulcer, ulcer, 02-14 Formattin ity of with fat with fat 00:00: g of this [place] as layer layer 00 note Medical exposed exposed might be Branch different from the original. Added automatic ally from request for surgery [id number] Diabetic Diabetic Disease Active Unive rs ketoacidos ketoacidos - it y of [place] without is without [place] coma coma 00 Medical associated associated Br anch with type with type 1 diabetes 1 diabetes mellitus mellitus Abdominal Abdominal Disease Active Uni vers pain, pain, 6-24 ity of unspecifie unspecifie 00:[place] d 00 Medical abdominal abdominal Bran ch location location Hyperglyce Hyperglyce Disease Active U braulio pedro pedro 6 ity of 00:00: [place] [address] Medical Branch Decubitus Decubitus Disease Active Uni vers ulcer of ulcer of 6-05 ity of heel, heel, 00:00: [place] left, left, 00 Medical unstageabl unstageabl Br anch e e Decubitus Decubitus Disease Active Uni vers ulcer of ulcer of 6-05 ity of heel, heel, 00:00: [place] left, left, 00 Medical unstageabl unstageabl Br anch e e Diabetic Diabetic Disease Active Unive rs ketoacidos ketoacidos 6-05 it y of is without is without [place] coma coma 00 Medical associated associated Br anch with type with type 2 diabetes 2 diabetes mellitus mellitus Decubitus Decubitus Disease Active Uni vers ulcer of ulcer of 6-05 ity of heel, heel, 00:00: [place] left, left, 00 Medical unstageabl unstageabl Br anch e e Pyuria Pyuria Disease Active Univers 6-05 ity of 00:00: [place] [address] Medical Branch Chronic Chronic Disease Active Univers suprapubic suprapubic 6 it y of catheter catheter 00:00: [place] Medical Branch Uncontroll Uncontroll Disease Active U braulio ed ed 6-03 ity of diabetes diabetes 00:00: [place] mellitus mellitus 00 Medica l with with Branch complicati complicati ons ons Spina Spina Disease Recurre Univers bifida bifida nce 6-03 ity of 00:00: [address] Wound Wound Disease Active Univers infection infection 5-11 ity of 00:00: [address] Branch Chills Chills Disease Active Univers 5-11 ity of 00:00: [address] POSSIBLE POSSIBLE Diagnosis Active 2021-11-01 Memoria 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 CONTENT PRODUCER SHUNT 10-20 21:48:00 l MALFUNCTIO MALFUNCTIO 00:00: samanthaann N N Active 00 10/20/2021 [facility] 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 CONTENT 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 CONTENT PRODUCER SHUNT Diagnosis Active 2021-10-11 Memoria MALFUNCTIO MALFUNCTIO 10-06 14:12:00 l N N Active 00:00: Jason 10/06/2021 00 [facility] DIGITAL CONTENT 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 CONTENT PRODUCER SHUNT Diagnosis Active 2021-10-05 Memoria MALFUCTION MALFUCTION 10-05 23:59:00 l Active 00:00: Jason 10/05/2021 00 [facility] Complicate Complicate Disease Active U nivers d urinary d urinary 1-20 ity of tract tract 00:00: [place] infection infection 00 [facility] Hyperglyce Hyperglyce Disease Active [facility] ped[facility] pedro [facility] without without 00:00: Medical ketosis ketosis 00 [place] HEADACHE HEADACHE Diagnosis Active 2017-072018-05-27 Memoria Active 07-22 22:05:00 l 05/22/2018 00:00: Christian kitchen [address] SHUNT SHUNT Diagnosis Active 2017-11-14 Mem oria MALFUNCTIO MALFUNCTIO - 20:00:00 l N N Active 00:00: Jason 11/14/2017 00 [facility] ACUTE ACUTE Diagnosis Active 2017-11-20 Mem oria HEADACHE HEADACHE - 09:20:00 l Active 00:00: Jason 11/14/2017 00 [facility] Spina Spina Disease Recurre [facility] 00:00: Medical [address] [place] [address] Pyelonephr Pyelonephr Disease Active [facility] itis itis 6 [facility] 00:00: Medical 00 Center Morbid Morbid Disease Active Univers obesity obesity 1-04 ity of with body with body 00:[place] mass index mass index 00 Me dical of of Branch 40.0-49.9 40.0-49.9 Lumbar Problem Active Common spina Spirit bifida - [facility] with [facility] Dependence Problem Active Commo n on Spirit wheelchair [facility] Paraplegia Problem Active Commo n [facility] Constipati Problem Active Commo n on [facility] Incontinen Problem Active Commo n ce of Spirit urine [facility] Nausea Problem Active [facility] Mixed Problem Active Common anxiety [facility] depressive [facility] [id number] Problem Active Common [facility] Bowel Problem Active Common incontinen [facility] [id number] Problem Active Common [facility] [id number] Problem Active [facility] [id number] Problem Active Common [facility] [id number] Problem Active Commo n [id number] [facility] Foot ulcer Problem Active Commo n [facility] Myelocele Problem Active Common with [facility] [id number] Problem Active [facility] [id number] Problem Active Common [facility] Nicotine Problem Active Common dependence [facility] [id number] Problem Active Common [facility] [id number] Problem Active Common [facility] [id number] Problem Active Common [facility] [id number] Problem Active [facility] Spina Spina Problem 2018-12-09 Memor ia bifida, bifida, 14:14:02 l unspecifie unspecifie He rmann d d 12/09/2018 [facility] Nausea Nausea Problem 2018-12-09 Erwin benjamin with with 14:14:02 l vomiting, vomiting, Herm philip unspecifie unspecifie d d 12/09/2018 [facility] Diplopia Diplopia Problem 2018-12-09 Memoria 12/09/2018 14:14:02 l [facility] Cerebral Cerebral Problem 2018-12-09 Memoria palsy, palsy, 14:14:02 l unspecifie unspecifie He rmann d d 12/09/2018 [facility] Acquired 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-09 Memoria absence of absence of 14:14:02 l other other [place] specified specified parts of parts of digestive digestive tract tract 12/09/2018 [facility] Nicotine Nicotine Problem 2018-12-09 Memoria dependence dependence 14:14:02 l , , [place] cigarettes cigarettes , , uncomplica uncomplica lester lester 12/09/2018 [facility] Presence Presence Problem 2018-12-09 Memoria of of 14:14:02 l cerebrospi cerebrospi He rmann nal fluid nal fluid drainage drainage device device 12/09/2018 [facility] Allergy Allergy Problem 2018-12-09 Me moria status to status to 14:14:02 l other other [place] antibiotic antibiotic agents agents status status 12/09/2018 [facility] Allergy Allergy Problem 2018-12-09 Me moria status to status to 14:14:02 l other other [place] drugs, drugs, medicament medicament s and s and biological biological substances substances status status 12/09/2018 [facility] Allergy Allergy Problem 2018-12-09 Me moria status to status to 14:14:02 l narcotic narcotic Christian n agent agent status status 12/09/2018 [facility] Asthma Asthma Problem Resolve 2021-10-27 Mem oria (disorder) (disorder) d 23:48:47 l Resolved Jason Problem 10/27/2021 [facility] Bronchitis Bronchiti Problem Resolve 2021-10-27 Memoria (disorder) s d 23:48:47 l (disorder) Christian n Resolved Problem 10/27/2021 [facility] 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-27 Memoria palsy palsy d 23:48:47 l (disorder) (disorder) He rmann Resolved Problem 10/27/2021 [facility] Hydrocepha Hydroceph Problem Resolve 2021-10-27 Memoria bam alus d 23:48:47 l (disorder) (disorder) He rmann Resolved Problem 10/27/2021 [facility] Osteomyeli Osteomyel Problem Resolve 2021-10-27 Memoria tis itis d 23:48:47 l (disorder) (disorder) He rmann Resolved Problem 10/27/2021 [facility] Acute pain Acute Problem Active 2021-10-27 M emoria (finding) pain 23:48:47 l (finding) Jason Active Problem 10/27/2021 [facility] Morbid Morbid Problem Active 2021-10-27 Erwin benjamin obesity obesity 23:48:47 l (disorder) (disorder) He rmann Active Problem 10/27/2021 [facility] Providenci Problem Active 2021-10-27 M emoria a Providenci 23:48:47 l (organism) mily kitchen (organism) Active Problem 10/27/2021 Problem added by Discern Expert. [facility] History of Past Illness Condition Condition Condition Status Onset Resolution Last Treating Co mments Source Name Details Category Date Date Treatment Clinician Date Headache Headache Problem 2017-072018-12-09 2018-12-09 Memoria 05/22/2018- 14:14:02 14:14:02 l 12/09/2018 06:00: [facility] [address] Allergies, Adverse Reactions, Alerts Allergy Allergy Status Severity Reaction(s) Onset Inactive Treating Comm ents Source Name Type Date Date Clinician Amoxicil Propensi Active Hives Univer s jocelyn ty to 7-27 ity of adverse 00:00: [place] reaction 00 Medical [facility] AMOXICIL DRUG Active Hives Univers JOCELYN INGREDI 7-27 ity of 00:00: [place] 00 Medical Branch Metoclop Propensi Active Nausea 2016-07 Univer s ramide ty to and/or 2-20 ity of Hcl adverse Vomiting 00:00: [place] reaction 00 Medical s Branch METOCLOP DRUG Active N/V 2016-07 Univers RAMIDE INGREDI 2-20 ity of HCL 00:00: [place] 00 Medical Branch SULFAMET Allergy Active High Hives [facility]OXAZOLE [facility] -TRIMETH 00:00: Medical OPRIM [address] [place] [address] LEVOFLOX Allergy Active High Hives [facility] ACIN [facility] 00:00: Medical [...] Medical 00 Center ONDANSET Allergy Active N\\T\\V 2017- [facility] KUMAR HCL [facility] (PF) 00:00: Medical 00 Center SESAME DRUG Active Hives 2017- Univers SEED INGREDI 6- ity of 00:00: [place] 00 Medical Branch Sulfamet Propensi Active Hives 2017-[address] hoxazole ty to 12-23 [facility] -Trimeth adverse 00:00: Medical oprim reaction 00 Center s Levoflox Propensi Active Hives 2017-[address] acin ty to 12-23 [facility] adverse 00:00: Medical reaction 00 Center s Morphine Propensi Active Hives 2017-[address] ty to 12-23 [facility] adverse 00:00: Medical reaction 00 Center s Sesame Propensi Active Hives 2017-[address] Seed ty to 12-23 [facility] adverse 00:00: Medical reaction 00 Center s Ketorola Propensi Active Rash 2017-[address] c ty to 6 [facility] adverse 00:00: Medical reaction 00 Center s Vancomyc Propensi Active Rash 2017-[address] in ty to 12-23 [facility] Analogue adverse 00:00: Medical s reaction [...] 2017-0 U nivers hoprim ty to comments 07-18 [...] IN INGREDI 07-18 ity of 00:00: [place] Medical Branch Sulfamet Propensi Active Rash Univer s hoxazole ty to 7-19 ity of adverse 00:00: [place] reaction Medical [...] Nausea Univer s c ty to and/or 5-23 ity of Trometha adverse Vomiting 00:00: [place] mine reaction 00 Medical s Branch LEVOFLOX DRUG Active Hives Univers ACIN INGREDI 5-23 ity of 00:00: [place] 00 Medical Branch MORPHINE DRUG Active Hives Univers INGREDI 5-23 ity of 00:00: [place] 00 Medical Branch KETOROLA DRUG Active N/V Univers C INGREDI 5-23 ity of TROMETHA 00:00: [place] MINE 00 Medical Branch morphine Drug Active Common allergy [facility] ondanset Drug Active Common kumar allergy [facility] [id number] Drug Active Common allergy [facility] amoxicil amoxicil Active Memori a jocelyn jocelyn l Jason morphine morphine Active Memori a l Jason Toradol Toradol Active Memoria l [place] Minocin Minocin Active Memoria l Jason Zofran Zofran Active Memoria l [place] Levaquin Levaquin Active Memori a l [place] Bactrim Bactrim Active Memoria l Jason Reglan Reglan Active Memoria l [place] Family History Family Member Diagnosis Comments Start Date Stop Date Source Natural father Diabetes [facility] [place] Natural mother No Significant Univer sit of [place] Medical Problems Medical Branch Social History Social Habit Start Date Stop Date Quantity Comments Source History of tobacco Cigarette Smoker [facility] Medical Branch History SDOH Social Unive rsity of Connections [facility] Med ical Together Branch History SDOH Social Unive rsity of Connections [facility] Medical Branch History SDOH Social Unive rsity of Connections [place] Medical Membership Branch History SDOH Social Unive rsity of Connections [place] Medical Meetings Branch Exposure to 2022-10-30 2022-11-09 Not sure University of SARS-CoV-2 (event) 00:00:00 14:24:00 [place] [facility] Alcohol intake 2022-11-09 2022-11-09 Current drinker Unive rsity of 00:00:00 00:00:00 of alcohol [place] Medical (finding) Branch History SDOH 2022-09-04 2022-09-04 1 University o f Alcohol Frequency 00:00:00 00:00:00 [place] M edical Branch History SDOH 2022-09-04 2022-09-04 0 University o f Alcohol Std Drinks 00:00:00 00:00:00 [place] [facility] History SDOH 2022-09-04 2022-09-04 1 University o f Alcohol Binge 00:00:00 00:00:00 [place] Medic al Branch History SDOH Social 2022-09-04 2022-09-04 4 Unive rsity of Connections Phone 00:00:00 00:00:00 [place] M edical Branch History SDOH Social 2022-09-04 2022-09-04 7 Unive rsity of Connections Living 00:00:00 00:00:00 [place] [facility] Branch History SDOH 2022-09-04 2022-09-04 0 University o f Physical Activity 00:00:00 00:00:00 [place] M edical DPW Branch History SDOH 2022-09-04 2022-09-04 0 University o f Physical Activity 00:00:00 00:00:00 [place] M edical MPS Branch History SDOH 2022-09-04 2022-09-04 5 University o f Financial 00:00:00 00:00:00 [place] [facility] History SDOH Food 2022-09-04 2022-09-04 1 Univers ity of Scarcity 00:00:00 00:00:00 [place] [facility] Branch History SDOH 2022-09-04 2022-09-04 2 University o f Transport Med 00:00:00 00:00:00 [place] Medic al Branch History SDOH 2022-09-04 2022-09-04 2 University o f Transport Non-Med 00:00:00 00:00:00 [place] M edical Branch History SDOH Food 2022-08-16 2022-08-16 1 Univers ity of Worry 00:00:00 00:00:00 [facility] Education 2022-05-20 2022-05-20 21 University of 00:00:00 00:00:00 [facility] Tobacco use and 2022-05-04 2022-05-04 Smokeless Universit y of exposure 00:00:00 00:00:00 tobacco non-user [facility] dical Branch Alcohol Comment 2022-02-15 2022-02-15 once a year Universi ty of 00:00:00 00:00:00 [facility] Social History 2021-10-06 2021-10-06 [facility] kristie 05:57:00 05:57:00 Cigarettes smoked 2016-12-23 2016-12-23 DEDE Guzman current (pack per 00:00:00 00:00:00 Medical Center day) - Reported Sex Ass[birth year] At [birth year] DEDE Peña kes 00:00:00 00:00:00 Medical Center Smoking Status Start Date Stop Date Source Social History 2018-05-22 11:26:10 [place] [facility] Medications Ordered Filled Start Stop Current [...] STRIP) twice strip daily DX E11.65 lancets 3-0 Yes Use as Univers (TRUEPLUS 5-04 directed ity of LANCETS) 30 00:00[place] gauge Misc 00 blood Medical sugars DX Branch E11.65 Blood-Gluco 3-0 Yes Use as Univ ers se Meter [...] blood Medical sugars DX Branch E11.65 Blood-Gluco 3-0 Yes Use as Univ ers se Meter 5-04 directed ity of (TRUE 00:00: to check [place] METRIX 00 blood Medical GLUCOSE sugars Branch METER) Misc twice daily for DX E11.65 blood sugar 3-0 Yes Use as Univ ers diagnostic 5-04 directed ity o f (TRUE 00:00: to check [place] METRIX 00 blood Medical GLUCOSE sugars Branch TEST STRIP) twice strip daily DX E11.65 lancets 3-0 Yes Use as Univers (TRUEPLUS 5-04 directed ity of LANCETS) 30 00:00: [place] gauge Misc 00 blood Medical sugars DX Branch E11.65 Blood-Gluco Yes Use as Univ ers se Meter - directed ity of (TRUE 00:00: to check [...] ity o f (PF)) 23:15: 23:38 [place], [place] injection 00 :00 ONCE, 1 Medical 12.5 [...] ity o f (PF)) 20:15: 20:34 [place], [place] injection 00 :00 ONCE, 1 Medical 25 mcg dose, On Branch Sat11/09/22 at 1515, STAT blood sugar Yes Use [...] Units ity of human, 00:00: under the [place] (HUMALOG 00 skin in Medical U-100 the [...] semaglutide 2022- Yes inject Uni vers (OZEMPIC) 4-05 02-19 0.25 mg ity of 0.25 mg [...] 2022- No Use as Uni vers diagnostic 25 05-04 directed ity of (ONETOUCH 00:00: 00:00 [place] VERIO TEST 00 :00 Medical STRIPS) Branch strip insulin NPH 2022- No 45U inject 45 Univers human 4-20 04-20 Units ity of isophane 20:12: 00:00 under the Tim as (NOVOLIN N 01 :00 skin 2 Medical SC) (two) Branch times daily. insulin NPH Yes [id number] 60U inject 60 Univers 100 unit/mL 4-20 Units ity of injection 00:00: under the Tim as 00 skin every Medical morning Branch and evening. insulin NPH 0 Yes [id number] 60U inject 60 Univers 100 unit/mL 4-20 Units ity of injection 00:00: under the Tim as 00 skin every Medical morning Branch and evening. insulin NPH 0 Yes [id number] 60U inject 60 Univers 100 unit/mL 4-20 Units ity of injection 00:00: under the Tim as 00 skin every Medical morning Branch and evening. insulin NPH 0 Yes [id number] 60U inject 60 Univers 100 unit/mL 4-20 Units ity of injection 00:00: under the [place] 00 skin every Medical morning Branch and evening. insulin NPH 0 Yes [id number] 60U inject 60 [facility] 100 unit/mL 4-20 Units ity of injection 00:00: under the [place] 00 skin every Medical morning Branch and evening. insulin NPH 2022-0 Yes [id number] 60U inject 60 [facility] 100 unit/mL 4-20 Units ity of injection 00:00: under the [place] 00 skin every Medical morning Branch and evening. insulin NPH 0 Yes [id number] 60U inject 60 [facility] 100 unit/mL 4-20 Units ity of injection 00:00: under the [place] 00 skin every Medical morning Branch and evening. insulin NPH 0 Yes [id number] 60U inject 60 [facility] 100 unit/mL 4-20 Units ity of injection 00:00: under the [place] 00 skin every Medical morning Branch and evening. insulin NPH 2022-0 Yes [id number] 60U inject 60 [facility] 100 unit/mL 4-20 Units ity of injection 00:00: under the [place] 00 skin every Medical morning Branch and evening. insulin NPH 2022-0 Yes [id number] 60U inject 60 [facility] 100 unit/mL 4-20 Units ity of injection 00:00: under the [place] 00 skin every Medical morning Branch and evening. insulin NPH 2022-0 Yes [id number] 60U inject 60 [facility] 100 unit/mL 4-20 Units ity of injection 00:00: under the [place] 00 skin every Medical morning Branch and evening. insulin NPH 2022-0 Yes [id number] 60U inject 60 [facility] 100 unit/mL 4-20 Units ity of injection 00:00: under the [place] 00 skin every Medical morning Branch and evening. insulin NPH 2022-0 Yes [id number] 60U inject 60 [facility] 100 unit/mL 4-20 Units ity of injection 00:00: under the [place] 00 skin every Medical morning Branch and evening. insulin NPH 2022-0 Yes [id number] 60U inject 60 [facility] 100 unit/mL 4-20 Units ity of injection 00:00: under the [place] 00 skin every Medical morning Branch and evening. insulin NPH 0 Yes [id number] 60U inject 60 [facility] 100 unit/mL 4-20 [...] IV ity of human 23:15: 22:41 Push, [place] (HUMULIN R) 00 :00 ONCE, [...] Sat10/31/22 at 1645, STAT cephALEXin 3-0 Yes [id number] 500mg Take 1 Univers (KEFLEX) 4-19 capsule by ity o f 500 mg 00:00: mouth 4 [place] capsule 00 (four) Medical times Branch daily. cephALEXin 2023-0 Yes [id number] 500mg Take 1 Univers (KEFLEX) 4-19 capsule by ity o f 500 mg 00:00: mouth 4 [place] capsule 00 (four) Medical times Branch daily. cephALEXin 2023-0 Yes [id number] 500mg Take 1 Univers (KEFLEX) 4-19 capsule by ity o f 500 mg 00:00: mouth 4 [place] capsule 00 (four) Medical times Branch daily. cephALEXin 2023-0 Yes [id number] 500mg Take 1 Univers (KEFLEX) 4-19 capsule by ity o f 500 mg 00:00: mouth 4 [place] capsule 00 (four) Medical times Branch daily. cephALEXin 2023-0 Yes [id number] 500mg Take 1 Univers (KEFLEX) 4-19 capsule by ity o f 500 mg 00:00: mouth 4 [place] capsule 00 (four) Medical times Branch daily. cephALEXin 2023-0 Yes [id number] 500mg Take 1 Univers (KEFLEX) 4-19 capsule by ity o f 500 mg 00:00: mouth 4 [place] capsule 00 (four) Medical times Branch daily. cephALEXin 2023-0 Yes [id number] 500mg Take 1 Univers (KEFLEX) 4-19 capsule by ity o f 500 mg 00:00: mouth 4 [place] capsule 00 (four) Medical times Branch daily. cephALEXin 2023-0 Yes [id number] 500mg Take 1 Univers (KEFLEX) 4-19 capsule by ity o f 500 mg 00:00: mouth 4 [place] capsule 00 (four) Medical times Branch daily. cephALEXin 2023-0 Yes [id number] 500mg Take 1 Univers (KEFLEX) 4-19 capsule by ity o f 500 mg 00:00: mouth 4 [place] capsule 00 (four) Medical times Branch daily. cephALEXin 2023-0 Yes [id number] 500mg Take 1 Univers (KEFLEX) 4-19 capsule by ity o f 500 mg 00:00: mouth 4 [place] capsule 00 (four) Medical times Branch daily. cephALEXin 2023-0 Yes [id number] 500mg Take 1 Univers (KEFLEX) 4-19 capsule by ity o f 500 mg 00:00: mouth 4 [place] capsule 00 (four) Medical times Branch daily. cephALEXin 2023-0 Yes [id number] 500mg Take 1 Univers (KEFLEX) 4-19 capsule by ity o f 500 mg 00:00: mouth 4 [place] capsule 00 (four) Medical times Branch daily. cephALEXin 2023-0 Yes [id number] 500mg Take 1 Univers (KEFLEX) 4-19 capsule by ity o f 500 mg 00:00: mouth 4 [place] capsule 00 (four) Medical times Branch daily. cephALEXin 2023-0 Yes [id number] 500mg Take 1 Univers (KEFLEX) 4-19 capsule by ity o f 500 mg 00:00: mouth 4 [place] capsule 00 (four) Medical times Branch daily. cephALEXin 2023-0 Yes [id number] 500mg Take 1 Univers (KEFLEX) 4-19 capsule by ity o f 500 mg 00:00: mouth 4 [place] capsule 00 (four) Medical times Branch daily. cephALEXin 2023-0 Yes [id number] 500mg Take 1 Univers (KEFLEX) 4-19 capsule by ity o f 500 mg 00:00: mouth 4 [place] capsule 00 (four) Medical times Branch daily. cefpodoxime 2023-0 Yes 200mg Take 1 Uni vers 200 mg 4-16 tablet by ity of tablet 00:00: mouth in [place] [address] the [facility] morning [place] and 1 tablet in the evening. cefpodoxime 2023-0 Yes 200mg Take 1 Uni vers 200 mg 4-16 tablet by ity of tablet 00:00: mouth in [place] [address] the [facility] morning [place] and 1 tablet in the evening. cefpodoxime 2023-0 Yes 200mg Take 1 Uni vers 200 mg 4-16 tablet by ity of tablet 00:00: mouth in [place] [address] the [facility] and 1 tablet in the evening. cefpodoxime 2023-0 Yes 200mg Take 1 Uni vers 200 mg 4-16 tablet by ity of tablet 00:00: mouth in [place] [address] the [facility] and 1 tablet in the evening. cefpodoxime 2023-0 Yes 200mg Take 1 Uni vers 200 mg 4-16 tablet by ity of tablet 00:00: mouth in [place] [address] the [facility] and 1 tablet in the evening. cefpodoxime 2023-0 Yes 200mg Take 1 Uni vers 200 mg 4-16 tablet by ity of tablet 00:00: mouth in [place] [address] the [facility] and 1 tablet in the evening. cefpodoxime 2023-0 Yes 200mg Take 1 Uni vers 200 mg 4-16 tablet by ity of tablet 00:00: mouth in [address] and 1 tablet in the evening. FENTanyl PF 2022- No 50ug 50 mcg, Un ela (SUBLIMAZE 10-22-10 Slow IV ity o f (PF)) 02:15: 02:39 Push, [place] injection 00 :00 ONCE, 1 Medical 50 mcg dose, On Branch 10/21/22 at 2115, Routine insulin 2022- No 14U 14 Units, Univ ers regular 10-22 04-10 Subcutaneo ity o f human 01:30: 00:59 , ONCE, [place] (HUMULIN R) 00 :00 1 dose, On Me dical injection 10/21/22 Bran ch 14 Units at 2030, Routine
Indicatio n for insulin: Hyperglyce pedro cefTRIAXone 2022-0 2022- No 1000mg 1,000 mg, Univers (ROCEPHIN) 10-22 04-10 IV ity of 1,000 mg in 01:00: 01:31 Piggyback, [place] NaCl 0.9% 00 :00 ONCE, 1 Medical (NS) 100 mL dose, On Bran ch MINI-BAG [place] 10/21/22 at 2000, Administer over 30 Minutes, 100 mL
Reas on for Anti-Infec tive: Documented Infection< br>Documen lester Infection Site: Urine<br&g t;Duration of Therapy: 7 days NaCl 0.9% 2022-0 2022- No 500mL at 999 Univ ers (NS) bolus 4-10 04-10 mL/hr, 500 it y of infusion 01:00: 02:45 mL, IV [place] 500 mL 00 :00 Infusion, Medical ONCE, 1 Branch dose, On [place] 10/21/22 at 2000, STAT NaCl 0.9% 2022-0 2022- No 1000mL at 999 Uni vers (NS) bolus 4-09 04-10 mL/hr, ity of infusion 23:15: 03:46 1,000 mL, [place] 1,000 mL 00 :00 IV Medical Infusion, Branch ONCE, 1 dose, On [place] 10/21/22 at 1815, SAHARA FENTanyl PF 2022- No 50ug 50 mcg, Un ela (SUBLIMAZE 10-21 04-09 Slow IV ity o f (PF)) 23:15: 23:11 Push, [place] injection 00 :00 ONCE, 1 Medical 50 mcg dose, On Branch [place] 10/21/22 at 1815, Routine insulin NPH 2022-0 Yes 45U inject 45 U nivers human 4-09 Units ity of isophane 21:52: [place] (NOVOLIN N 29 skin 2 Medical [place]) (two) Branch times daily. insulin NPH 3-0 Yes 45U inject 45 [...] SC) (two) Branch times daily. insulin NPH 3-0 Yes 45U inject 45 U nivers human 4-09 Units ity of isophane 21:52: [place] (NOVOLIN N 29 skin 2 Medical [place]) (two) Branch times daily. insulin NPH 3-0 Yes 45U inject 45 U nivers human 4-09 Units ity of isophane 21:52: [place] (NOVOLIN N 29 skin 2 Medical [place]) (two) Branch times daily. insulin NPH 3-0 Yes 45U inject 45 U nivers human 4-09 Units ity of isophane 21:52: [place] (NOVOLIN N 29 skin 2 Medical [place]) (two) Branch times daily. insulin NPH 3-0 Yes [id number] 45U inject 45 [facility] 100 unit/mL 4-09 Units ity of injection 00:00: under the [place] 00 skin every Medical morning Branch and evening. insulin NPH 3-0 Yes [id number] 45U inject 45 [facility] 100 unit/mL 4-09 Units ity of injection 00:00: under the [place] 00 skin every Medical morning Branch and evening. insulin NPH 3-0 Yes [id number] 45U inject 45 [facility] 100 unit/mL 4-09 Units ity of injection 00:00: under the [place] 00 skin every Medical morning Branch and evening. insulin NPH 3-0 Yes [id number] 45U inject 45 [facility] 100 unit/mL 4-09 Units ity of injection 00:00: under the [place] 00 skin every Medical morning Branch and evening. insulin NPH 3-0 Yes [id number] 45U inject 45 [facility] 100 unit/mL 4-09 Units ity of injection 00:00: under the [place] 00 skin every Medical morning Branch and evening. insulin NPH 2023-0 Yes [id number] 45U inject 45 [facility] 100 unit/mL 4-09 Units ity of injection 00:00: under the [place] 00 skin every Medical morning Branch and evening. insulin NPH 2022-0 Yes [id number] 45U inject 45 [facility] 100 unit/mL 4-09 Units ity of injection 00:00: under the [place] 00 skin every Medical morning Branch and evening. insulin NPH 2022-0 Yes [id number] 45U inject 45 [facility] 100 unit/mL 4-09 Units ity of injection 00:00: under the [place] 00 skin every Medical morning Branch and evening. insulin NPH 2022-0 Yes [id number] 45U inject 45 [facility] 100 unit/mL 4-09 Units ity of injection 00:00: under the [place] 00 skin every Medical morning Branch and evening. insulin NPH 2022- No [id number] 45U inject 45 [facility] 100 unit/mL 4-09 04-20 Units ity of injection 00:00: 00:00 under the [place] 00 :00 skin every Medical morning Branch and evening. cefpodoxime 2022- Yes [id number] 200mg Take 1 Univers 200 mg 10-21-17 tablet by ity of tablet 00:00: 04:59 mouth in [place] 00 :00 the Medical morning Branch and 1 tablet in the evening. Do all this for 7 days. cefpodoxime 2022- Yes [id number] 200mg Take 1 Univers 200 mg 10-21-17 tablet by ity of tablet 00:00: 04:59 mouth in [place] 00 :00 the Medical morning Branch and 1 tablet in the evening. Do all this for 7 days. cefTRIAXone 0 2022- No 1000mg 1,000 mg, Univers (ROCEPHIN) 3-25 03-25 IV ity of 1,000 mg in 00:00: 00:31 [place], [place] NaCl 0.9% 00 :00 ONCE, 1 Medical (NS) 100 mL dose, On Bran ch MINI-BAG Sat10/05/22 at 1900, Administer over 30 Minutes, 100 mL
Reas on for Anti-Infec tive: Documented Infection< br>Documen lester Infection Site: Urine<br&g t;Duration of Therapy: 7 days NaCl 0.9% 2022- No 1000mL at 999 Uni vers (NS) bolus 10-05 03-25 mL/hr, ity of infusion 23:45: 01:32 1,000 mL, [place] as 1,000 mL 00 :00 IV Medical Piggyback, Branch ONCE, 1 dose, On 10/05/22 at 1845, STAT insulin 2022- No 10U 10 Units, Univ ers regular 10-05 Subcutaneo ity o f human 23:45: 23:08 , ONCE, [place] (HUMULIN R) 00 :00 1 dose, On Me dical injection Fri Branch 10 Units 10/05/22 at 1845, Routine
Indicatio n for insulin: Hyperglyce pedro iopamidol 2022- No [id number] 100mL 100 mL, Univers (ISOVUE 10-05 Intravenou [...] 1000mL at 999 Uni vers (NS) bolus 10-05-25 mL/hr, ity of infusion 22:00: 01:32 1,000 mL, [place] as 1,000 mL 00 :00 IV Medical Infusion, Branch ONCE, 1 dose, On 10/05/22 at 1700, [place] proMETHazin 2022- No 25mg 25 mg, IV Univers e 10-05 Piggyback, ity of (PHENERGAN) 21:15: 21:46 ONCE, 1 [place] 25 mg in 00 :00 dose, On Medical NaCl 0.9% Fri Branch (NS) 50 mL 10/05/22 at IV 1615, SAHARA piggyback cefdinir 2022- Yes [id number] 300mg Take 1 Univers 300 mg 3-24 04-08 capsule by ity of capsule 00:00: 04:59 mouth [place] 00 :00 every 12 Medical (twelve) Branch hours for 14 days. cefdinir 2023-0 2023- Yes [id number] 300mg Take 1 Univers 300 mg 3-24 04-08 capsule by ity of capsule 00:00: 04:59 mouth [place] 00 :00 every 12 Medical (twelve) Branch hours for 14 days. cefdinir 2023-0 202- Yes [id number] 300mg Take 1 Univers 300 mg 3-24 04-08 capsule by ity of capsule 00:00: 04:59 mouth [place] 00 :00 every 12 Medical (twelve) Branch hours for 14 days. sodium 2023-0 Yes Topical, Univers hypochlorit 2-23 TID, First it y of e 0.25% 20:00: dose on [place] (DAKIN'S 00 [facility] Medical SOLUTION) 09/06/22 at Bran ch solution 1400, Until Discontinu ed, Routine sodium 2023-0 Yes Topical, Univers hypochlorit 2-23 TID, First it y of e 0.25% 20:00: dose on [place] (DAKIN'S 00 [place] Medical SOLUTION) 09/06/22 at Bran ch solution 1400, Until Discontinu ed, Routine HYDROmorpho 2023-0 Yes 4mg Take 4 mg U nivers ne 4 mg 2-23 by mouth ity of tablet 14:27: in the [place] [address] morning Medical and 4 mg Branch at [...] mouth ity of tablet 14:27: in the [place] [address] morning Medical and 4 mg Branch at [...] mouth ity of tablet 14:27: in the [place] [address] morning Medical and 4 mg Branch at [...] mouth ity of tablet 14:27: in the [place] [address] morning Medical and 4 mg Branch at [...] mouth ity of tablet 14:27: in the [place] [address] morning Medical and 4 mg Branch at [...] mouth ity of tablet 14:27: in the [place] [address] morning Medical and 4 mg Branch at noon and 4 mg in the evening. HYDROmorpho 2023-0 Yes 4mg Take 4 mg U nivers ne 4 mg 2-23 by mouth ity of tablet 14:27: in the [place] [address] morning Medical and 4 mg Branch at noon and 4 mg in the evening. HYDROmorpho 2023-0 Yes 4mg Take 4 mg U nivers ne 4 mg 2-23 by mouth ity of tablet 14:27: in the [place] [address] morning Medical and 4 mg Branch at noon and 4 mg in the evening. HYDROmorpho 2023-0 Yes 4mg Take 4 mg U nivers ne 4 mg 2-23 by mouth ity of tablet 14:27: in the [place] [address] morning Medical and 4 mg Branch at noon and 4 mg in the evening. HYDROmorpho 2023-0 Yes 4mg Take 4 mg U nivers ne 4 mg 2-23 by mouth ity of tablet 14:27: in the [place] [address] morning Medical and 4 mg Branch at noon and 4 mg in the evening. HYDROmorpho 2023-0 Yes 4mg Take 4 mg U nivers ne 4 mg 2-23 by mouth ity of tablet 14:27: in the [place] [address] morning Medical and 4 mg Branch at noon and 4 mg in the evening. HYDROmorpho 2023-0 Yes 4mg Take 4 mg U nivers ne 4 mg 2-23 by mouth ity of tablet 14:27: in the [place] [address] morning Medical and 4 mg Branch at noon and 4 mg in the evening. HYDROmorpho 2023-0 Yes 4mg Take 4 mg U nivers ne 4 mg 2-23 by mouth ity of tablet 14:27: in the [place] [address] morning Medical and 4 mg Branch at noon and 4 mg in the evening. HYDROmorpho 2023-0 Yes 4mg Take 4 mg U nivers ne 4 mg 2-23 by mouth ity of tablet 14:27: in the [place] [address] morning Medical and 4 mg Branch at noon and 4 mg in the evening. HYDROmorpho 2023-0 Yes 4mg Take 4 mg U nivers ne 4 mg 2-23 by mouth ity of tablet 14:27: in the [place] [address] morning Medical and 4 mg Branch at noon and 4 mg in the evening. HYDROmorpho 2023-0 Yes 4mg Take 4 mg U nivers ne 4 mg 2-23 by mouth ity of tablet 14:27: in the [place] [address] morning Medical and 4 mg Branch at noon and 4 mg in the evening. HYDROmorpho 2023-0 Yes 4mg Take 4 mg U nivers ne 4 mg 2-23 by mouth ity of tablet 14:27: in the [place] [address] morning Medical and 4 mg Branch at noon and 4 mg in the evening. HYDROmorpho 2023-0 Yes 4mg Take 4 mg U nivers ne 4 mg 2-23 by mouth ity of tablet 14:27: in the [place] [address] morning Medical and 4 mg Branch at noon and 4 mg in the evening. HYDROmorpho 2023-0 Yes 4mg Take 4 mg U nivers ne 4 mg 2-23 by mouth ity of tablet 14:27: in the [place] [address] morning Medical and 4 mg Branch at noon and 4 mg in the evening. HYDROmorpho 2023-0 Yes 4mg Take 4 mg U nivers ne 4 mg 2-23 by mouth ity of tablet 14:27: in the [place] [address] morning Medical and 4 mg Branch at noon and 4 mg in the evening. HYDROmorpho 2023-0 Yes 4mg Take 4 mg U nivers ne 4 mg 2-23 by mouth ity of tablet 14:27: in the [place] [address] morning Medical and 4 mg Branch at noon and 4 mg in the evening. HYDROmorpho 2023-0 Yes 4mg Take 4 mg U nivers ne 4 mg 2-23 by mouth ity of tablet 14:27: in the [place] [address] morning Medical and 4 mg Branch at noon and 4 mg in the evening. HYDROmorpho 2023-0 Yes 4mg Take 4 mg U nivers ne 4 mg 2-23 by mouth ity of tablet 14:27: in the [place] [address] morning Medical and 4 mg Branch at noon and 4 mg in the evening. HYDROmorpho 2023-0 Yes 4mg Take 4 mg U nivers ne 4 mg 2-23 by mouth ity of tablet 14:27: in the [place] [address] morning Medical and 4 mg Branch at noon and 4 mg in the evening. HYDROmorpho 2023-0 Yes 4mg Take 4 mg U nivers ne 4 mg 2-23 by mouth ity of tablet 14:27: in the [place] [address] morning Medical and 4 mg Branch at noon and 4 mg in the evening. HYDROmorpho 2023-0 Yes 4mg Take 4 mg U nivers ne 4 mg 2-23 by mouth ity of tablet 14:27: in the [place] [address] morning Medical and 4 mg Branch at noon and 4 mg in the evening. HYDROmorpho 2023-0 Yes 4mg Take 4 mg U nivers ne 4 mg 2-23 by mouth ity of tablet 14:27: in the [place] [address] morning Medical and 4 mg Branch at noon and 4 mg in the evening. HYDROmorpho 2023-0 Yes 4mg Take 4 mg U nivers ne 4 mg 2-23 by mouth ity of tablet 14:27: in the [place] 27 morning Medical and 4 mg Branch at noon and 4 mg in the evening. HYDROmorpho 2023-0 Yes 4mg Take 4 mg U nivers ne 4 mg 2-23 by mouth ity of tablet 14:27: in the [place] 27 morning Medical and 4 mg Branch at noon and 4 mg in the evening. HYDROmorpho 2023-0 2023- No 1mg 1 mg, Slow Univers ne 09-06 IV Push, ity of (DILAUDID) 11:09: 11:08 Q4HPRN, [place] injection 1 37 :37 Starting Medi efrain mg on [place] Branch 09/06/22 at 0509, Until 09/08/22 at 0508, Routine, Pain (scale 7-10)
U se approved by (Faculty): [facility] HYDROmorpho 2023-0 2023- No 1mg 1 mg, Slow Univers ne 09-06 IV Push, ity of (DILAUDID) 11:09: 11:08 Q4HPRN, [place] injection 1 37 :37 Starting Medi efrain mg on [place] Branch 09/06/22 at 0509, Until 09/08/22 at 0508, Routine, Pain (scale 7-10)
U se approved by (Faculty): [facility] HYDROmorpho 2023-0 Yes 4mg Take 4 mg U nivers ne 4 mg 2-23 by mouth ity of tablet 10:57: in the [place] [address] morning Medical and 4 mg Branch at [...] mouth ity of tablet 10:57: in the [place] 10 morning Medical and 4 mg Branch at noon and 4 mg in the evening. insulin NPH 2023-0 Yes 45U inject 45 U nivers human 2-23 Units ity of isophane 10:57: [place] (NOVOLIN N 10 skin 2 Medical SC) (two) Branch times daily. sodium 2023-0 2023- No 16[oz_a 16 oz, Unive rs hypochlorit 09-06 v] Topical, ity of e 0.5% 04:00: 18:17 Q8H, First [place] (DAKINS) 00 :09 dose on Medical solution 16 Wed Branch oz 09/05/22 at 2200, Until Discontinu ed, Routine amitriptyli 0 Yes 25mg 25 mg, Univ ers ne (ELAVIL) 09-06 Oral, QHS, it y of tablet 25 03:45: First dose [place] mg 00 on Wed Medical 09/05/22 at Branch 2145, Until Discontinu ed, Routine amitriptyli 0 Yes 25mg 25 mg, Univ ers ne (ELAVIL) 09-06 Oral, QHS, it y of tablet 25 [...] (scale 7-10)
U se approved by (Faculty): [facility] FENTanyl PF 2022- No 25ug 25 [...] ity of free) 20:36: 21:03 on Sat [place] (SENSORCAIN 00 :01 09/05/22 at Ks dical E MPF) 0.25 1436, Branch % (2.5 Until Sat mg/mL) 09/05/22 at injection 1503, Routine, Intra-op insulin 3-0 Yes 4U 4 Units, Univer s lispro 09-05 Subcutaneo ity of (human) 17:30: us, [place] AVILA s (HumaLOG 00 First dose Medic al U-100) on Sat Branch injection 4 09/05/22 at Units 1130, Until Discontinu ed, Routine insulin 2022-0 Yes 4U 4 Units, Univer s lispro 09-05 Subcutaneo ity of (human) 17:30: us, TIDACTima s (HumaLOG 00 First dose [...] unresponsi ve to Ondansetro n cefTRIAXone 2022-0 2022- No 1000mg 1,000 mg, [...] uration of Therapy: 7 days cefTRIAXone 2022- No 1000mg 1,000 mg, Univers (ROCEPHIN) 09-0501 IV ity of 1,000 mg in 04:00: 03:59 Piggyback, [place] NaCl 0.9% 00 :00 Q24H, 7 Medical (NS) 50 mL doses, Branch MINI-BAG First dose on Sat09/04/22 at 2200, Last dose on Sat09/10/22 at 2200, Administer over 30 Minutes, 50 mL
Reas on for Anti-Infec tive: Documented Infection< br>Documen lester Infection Site: Urine
D uration of Therapy: 7 days insulin NPH 0 Yes 30U 30 Units, U nivers (HUMULIN N) 09-05 Subcutaneo it y of injection 03:00: , [place] 30 Units 00 QAM+HS, Medical First dose Branch (after last modificati on) on Sat09/04/22 at 2100, Until Discontinu ed, Routine insulin NPH Yes 30U 30 Units, U nivers (HUMULIN N) 09-05 Subcutaneo it y of injection 03:00: [place], [place] 30 Units 00 QAM+HS, Medical First dose Branch (after last modificati on) on Sat09/04/22 at 2100, Until Discontinu ed, Routine enoxaparin Yes 40mg 40 mg, Unive rs (LOVENOX) 09-04 Subcutaneo ity of injection 23:00: us, DAILY, [place] 40 mg 00 First dose Medical on Sat Branch 09/04/22 at 1700, Until Discontinu ed, Routine enoxaparin Yes 40mg 40 mg, Unive rs (LOVENOX) - Subcutaneo ity of injection 23:00: us, DAILY, [place] 40 mg 00 First dose Medical on Sat Branch 09/04/22 at 1700, Until Discontinu ed, Routine proCHLORper Yes 10mg 10 mg, IV U nivers azine 09-04 Piggyback, ity of (COMPAZINE) 20:07: at 100 [place] 10 mg in 44 mL/hr Medical NaCl 0.9% Administer Bran ch (NS) over 30 piggyback Minutes, Q6HPRN, Starting on Sat09/04/22 at 1407, Until Discontinu ed, Routine, Nausea and Vomiting (N/V) proCHLORper 0 Yes 10mg 10 mg, IV U nivers azine 09-04 Piggyback, ity of (COMPAZINE) 20:07: at 100 [place] 10 mg in 44 mL/hr Medical NaCl 0.9% Administer Bran ch (NS) over 30 piggyback Minutes, Q6HPRN, Starting on Sat09/04/22 at 1407, Until Discontinu ed, Routine, Nausea and Vomiting (N/V) insulin 0 2022- No 10U 10 Units, Univ ers regular 09-04 Subcutaneo ity o f human 19:00: 19:28 , ONCE, [place] (HUMULIN R) 00 :00 1 dose, On Me dical injection Tue Branch 10 Units 09/04/22 at 1300, Routine
Indicatio n for insulin: Hyperglyce pedro insulin 0 2022- No 10U 10 Units, Univ ers regular 09-04 IV Push, ity of human 16:00: 17:00 ONCE, 1 [place] (HUMULIN R) 00 :00 dose, On Medi efrain injection Tue Branch 10 Units 09/04/22 at 1000, Routine
Indicatio n for insulin: Hyperglyce pedro pantoprazol Yes 40mg 40 mg, Univ ers e 09-04 Slow IV ity of (PROTONIX) 15:00: Push, [place] injection 00 DAILY, Medical 40 mg First dose Branch on Sat09/04/22 at 0900, Until Discontinu ed sennosides- 0 Yes 1{tbl} 1 tablet, Univers docusate 09-04 Oral, ity of sodium 15:00: DAILY, [place] (SENOKOT-S) 00 First dose Me dical 8.6-50 mg on Tu Branch per tablet 09/04/22 at 1 tablet 0900, Until Discontinu ed, Routine pantoprazol Yes 40mg 40 mg, Univ ers e 09-04 Slow IV ity of (PROTONIX) 15:00: Push, [place] injection 00 DAILY, Medical 40 mg First dose Branch on Sat09/04/22 at 0900, Until Discontinu ed sennosides- Yes 1{tbl} 1 tablet, [facility] docusate 09-04 Oral, ity of sodium 15:00: DAILY, [place] (SENOKOT-S) 00 First dose Me dical 8.6-50 mg on Sat Branch per tablet 09/04/22 at 1 tablet 0900, Until Discontinu ed, Routine insulin NPH 2022- No 20U 20 Units, Univers (HUMULIN N) 09-04 Subcutaneo i ty of injection 15:00: 18:00 us, [place] 20 Units 00 :37 QAM+HS, Medical First dose Branch on Sat09/04/22 at 0900, Until Discontinu ed, Routine Sliding Yes Subcutaneo Univ ers Scale 2-21 us, TID ity of Insulin - 14:00: MEALS+HS, Tim [place] Lispro 00 First dose Medical (HumaLOG) + on Sat Branch Fsbg 09/04/22 at Testing 0800, Until Discontinu ed, Routine Sliding Yes Subcutaneo [facility] ers Scale 2-21 us, TID ity of Insulin - 14:00: MEALS+HS, Tim as Lispro 00 First dose Medical (HumaLOG) + on Sat Branch Fsbg 09/04/22 at Testing 0800, Until Discontinu ed, Routine HYDROmorpho 2022- No .5mg 0.5 mg, Un ela ne 09-04 Slow IV ity of (DILAUDID) 09:57: 03:41 [place], [place] injection 20 :06 Q4HPRN, Medical 0.5 mg Starting Branch on Sat09/04/22 at 0357, Until Sat09/05/22 at 2141, Routine, Pain (scale 7-10)
U se approved by (Faculty): [facility] HYDROmorpho Yes 4mg 4 mg, Unive rs ne 09-04 Oral, ity of (DILAUDID) 09:57: Q4HPRN, [place] tablet 4 mg 04 Starting Medi efrain on Sat/21/23 at 0357, Until Discontinu ed, Routine, Pain [...] KIT) 52 Starting Medical injection 1 on Branch mg 09/04/22 at 0253, Until Discontinu ed, SAHARA, Blood Glucose < or = 70 mg/dL and patient is NPO, unable to swallow or has mental changes. dextrose 50 2022-0 Yes 25mL 25 mL, Univ ers % in water 09-04 Slow IV ity of (D50W) 08:53: Push, PRN, [place] injection 52 Starting Medica l 25 mL on Branch 09/04/22 at 0253, Until Discontinu ed, SAHARA, Blood Glucose < or = 70 mg/dL and patient is NPO, unable to swallow or has mental status changes. glucagon 2023-0 Yes 1mg 1 mg, Univers (GLUCAGEN 2- Intramuscu ity of DIAGNOSTIC 08:53: [place], [place] KIT) 52 Starting Medical injection 1 on [facility] Branch mg 09/04/22 at 0253, Until Discontinu ed, SAHARA, Blood Glucose < or = 70 mg/dL and patient is NPO, unable to swallow or has mental changes. dextrose 50 2023-0 Yes 25mL 25 mL, Univ ers % in water 2 Slow IV ity of (D50W) 08:53: Push, PRN, [place] injection 52 Starting Medica l 25 mL on [facility] Branch 09/04/22 at 0253, Until Discontinu ed, SAHARA, Blood Glucose < or = 70 mg/dL and patient is NPO, unable to swallow or has mental status changes. ondansetron 3-0 Yes 4mg 4 mg, Slow Univers (ZOFRAN 2-21 IV Push, ity of (PF)) 08:53: Q6HPRN, [place] injection 4 45 Starting Medi efrain mg on Branch 09/04/22 at 0253, Until Discontinu ed, Routine, Nausea and Vomiting (N/V) ondansetron 2023-0 Yes 4mg 4 mg, Slow Univers (ZOFRAN 2-21 IV Push, ity of (PF)) 08:53: Q6HPRN, [place] injection 4 45 Starting Medi efrain mg on Branch 09/04/22 at 0253, Until Discontinu ed, Routine, Nausea and Vomiting (N/V) acetaminoph 2023-0 Yes 650mg 650 mg, Un ela en 2-21 Oral, ity of (TYLENOL) 08:53: Q6HPRN, [place] tablet 650 15 Starting Medic al mg on Branch 09/04/22 at 0253, Until Discontinu ed, Routine, Pain (scale 1-3) acetaminoph 2023-0 Yes 650mg 650 mg, Un ela en 2-21 Oral, ity of (TYLENOL) 08:53: Q6HPRN, [place] tablet 650 15 Starting Medic al mg on Branch 09/04/22 at 0253, Until Discontinu ed, Routine, Pain (scale 1-3) insulin 0 2022- No 10U 10 Units, Univ ers [...] IV ity of human 05:00: 04:15 Push, [place] (HUMULIN R) 00 :00 ONCE, 1 Medic al injection dose, On Branch 10 Units [facility] 09/03/22 at 2300, Routine
Indicatio n for insulin: Hyperglyce pedro NaCl 0.9% 2022- No 1000mL at 999 Uni vers (NS) bolus 09-04 mL/hr, ity of infusion 04:45: 05:33 1,000 mL, [place] 1,000 mL 00 :00 IV Medical Infusion, Branch ONCE, 1 dose, On Sat09/03/22 at 2245, SAHARA ibuprofen 2022- No 600mg 600 mg, Uni vers (IBU) 09-04 Oral, ity of tablet 600 04:09: 04:21 ONCE, 1 [place] mg 00 :00 dose, On Medical [facility] Branch 09/03/22 at 2215, SAHARA cefTRIAXone 2022- No 1000mg 1,000 mg, Univers (ROCEPHIN) 09-04 IV ity of 1,000 mg in 03:45: 04:34 [place], [place] NaCl 0.9% 00 :00 ONCE, 1 Medical (NS) 100 mL dose, On Bran ch MINI-BAG Sat09/03/22 at 2145, Administer over 30 Minutes, 100 mL
Reas on for Anti-Infec tive: Documented Infection< br>Documen lester Infection Site: Urine<br&g t;Duration of Therapy: Other (see Comments) HYDROmorpho 0 Yes 4mg Take 4 mg [...] Medical [place]) (two) Branch times daily. flash 2022-0 Yes [id number] 1{kit} 1 Kit Unive rs glucose 2-14 daily. ity of scanning 00:00: [place] reader 00 Medical (FREESTYLE Branch RIGO 2 READER) Misc flash 3-0 Yes [id number] 1{kit} 1 Kit Unive rs glucose 2-14 every 14 ity of sensor 00:00: (fourteen) [place] (FREESTYLE 00 days. Medical RIGO 2 Branch SENSOR) Kit flash 3-0 Yes [id number] 1{kit} 1 Kit Unive rs glucose 2-14 daily. ity of scanning 00:00: [place] reader 00 Medical (FREESTYLE Branch RIGO 2 READER) Misc flash 3-0 Yes [id number] 1{kit} 1 Kit Unive rs glucose 2-14 every 14 ity of sensor 00:00: (fourteen) [place] (FREESTYLE 00 days. Medical RIGO 2 Branch SENSOR) Kit flash 2023-0 Yes [id number] 1{kit} 1 Kit Unive rs glucose 2-14 daily. ity of scanning 00:00: [place] reader 00 Medical (FREESTYLE Branch RIGO 2 READER) Misc flash 2023-0 Yes [id number] 1{kit} 1 Kit Unive rs glucose 2-14 every 14 ity of sensor 00:00: (fourteen) [place] (FREESTYLE 00 days. Medical RIGO 2 Branch SENSOR) Kit flash 2023-0 Yes [id number] 1{kit} 1 Kit Unive rs glucose 2-14 daily. ity of scanning 00:00: [place] reader 00 Medical (FREESTYLE Branch RIGO 2 READER) Misc flash 2023-0 Yes [id number] 1{kit} 1 Kit Unive rs glucose 2-14 every 14 ity of sensor 00:00: (fourteen) [place] (FREESTYLE 00 days. Medical RIGO 2 Branch SENSOR) Kit flash 2023-0 Yes [id number] 1{kit} 1 Kit Unive rs glucose 2-14 daily. ity of scanning 00:00: [place] reader 00 Medical (FREESTYLE Branch RIGO 2 READER) Misc flash 2023-0 Yes [id number] 1{kit} 1 Kit Unive rs glucose 2-14 every 14 ity of sensor 00:00: (fourteen) [place] (FREESTYLE 00 days. Medical RIGO 2 Branch SENSOR) Kit flash 2023-0 Yes [id number] 1{kit} 1 Kit Unive rs glucose 2-14 daily. ity of scanning 00:00: [place] reader 00 Medical (FREESTYLE Branch RIGO 2 READER) Misc flash 2023-0 Yes [id number] 1{kit} 1 Kit Unive rs glucose 2-14 every 14 ity of sensor 00:00: (fourteen) [place] (FREESTYLE 00 days. Medical RIGO 2 Branch SENSOR) Kit flash 2023-0 Yes [id number] 1{kit} 1 Kit Unive rs glucose 2-14 daily. ity of scanning 00:00: [place] reader 00 Medical (FREESTYLE Branch RIGO 2 READER) Misc flash 2023-0 Yes [id number] 1{kit} 1 Kit Unive rs glucose 2-14 every 14 ity of sensor 00:00: (fourteen) [place] (FREESTYLE 00 days. Medical RIGO 2 Branch SENSOR) Kit flash 2023-0 Yes [id number] 1{kit} 1 Kit Unive rs glucose 2-14 daily. ity of scanning 00:00: [place] reader 00 Medical (FREESTYLE Branch RIGO 2 READER) Misc flash 2023-0 Yes [id number] 1{kit} 1 Kit Unive rs glucose 2-14 every 14 ity of sensor 00:00: (fourteen) [place] (FREESTYLE 00 days. Medical RIGO 2 Branch SENSOR) Kit flash 2023-0 Yes [id number] 1{kit} 1 Kit Unive rs glucose 2-14 daily. ity of scanning 00:00: [place] reader 00 Medical (FREESTYLE Branch RIGO 2 READER) Misc flash 2023-0 Yes [id number] 1{kit} 1 Kit Unive rs glucose 2-14 every 14 ity of sensor 00:00: (fourteen) [place] (FREESTYLE 00 days. Medical RIGO 2 Branch SENSOR) Kit flash 2023-0 Yes [id number] 1{kit} 1 Kit Unive rs glucose 2-14 daily. ity of scanning 00:00: [place] reader 00 Medical (FREESTYLE Branch RIGO 2 READER) Misc flash 2023-0 Yes [id number] 1{kit} 1 Kit Unive rs glucose 2-14 every 14 ity of sensor 00:00: (fourteen) [place] (FREESTYLE 00 days. Medical RIGO 2 Branch SENSOR) Kit flash 2023-0 Yes [id number] 1{kit} 1 Kit Unive rs glucose 2-14 daily. ity of scanning 00:00: [place] reader 00 Medical (FREESTYLE Branch RIGO 2 READER) Misc flash 2023-0 Yes [id number] 1{kit} 1 Kit Unive rs glucose 2-14 every 14 ity of sensor 00:00: (fourteen) [place] (FREESTYLE 00 days. Medical RIGO 2 Branch SENSOR) Kit flash 2023-0 Yes [id number] 1{kit} 1 Kit Unive rs glucose 2-14 daily. ity of scanning 00:00: [place] reader 00 Medical (FREESTYLE Branch RIGO 2 READER) Misc flash 2023-0 Yes [id number] 1{kit} 1 Kit Unive rs glucose 2-14 every 14 ity of sensor 00:00: (fourteen) [place] (FREESTYLE 00 days. Medical RIGO 2 Branch SENSOR) Kit flash 2023-0 Yes [id number] 1{kit} 1 Kit Unive rs glucose 2-14 daily. ity of scanning 00:00: [place] reader 00 Medical (FREESTYLE Branch RIGO 2 READER) Misc flash 2023-0 Yes [id number] 1{kit} 1 Kit Unive rs glucose 2-14 every 14 ity of sensor 00:00: (fourteen) [place] (FREESTYLE 00 days. Medical RIGO 2 Branch SENSOR) Kit flash 2023-0 Yes [id number] 1{kit} 1 Kit Unive rs glucose 2-14 daily. ity of scanning 00:00: [place] reader 00 Medical (FREESTYLE Branch RIGO 2 READER) Misc flash 2023-0 Yes [id number] 1{kit} 1 Kit Unive rs glucose 2-14 every 14 ity of sensor 00:00: (fourteen) [place] (FREESTYLE 00 days. Medical RIGO 2 Branch SENSOR) Kit flash 2023-0 Yes [id number] 1{kit} 1 Kit Unive rs glucose 2-14 daily. ity of scanning 00:00: [place] reader 00 Medical (FREESTYLE Branch RIGO 2 READER) Misc flash 2023-0 Yes [id number] 1{kit} 1 Kit Unive rs glucose 2-14 every 14 ity of sensor 00:00: (fourteen) [place] (FREESTYLE 00 days. Medical RIGO 2 Branch SENSOR) Kit flash 2023-0 Yes [id number] 1{kit} 1 Kit Unive rs glucose 2-14 daily. ity of scanning 00:00: [place] reader 00 Medical (FREESTYLE Branch RIGO 2 READER) Misc flash 2023-0 Yes [id number] 1{kit} 1 Kit Unive rs glucose 2-14 every 14 ity of sensor 00:00: (fourteen) [place] (FREESTYLE 00 days. Medical RIGO 2 Branch SENSOR) Kit flash 2023-0 Yes [id number] 1{kit} 1 Kit Unive rs glucose 2-14 daily. ity of scanning 00:00: [place] reader 00 Medical (FREESTYLE Branch RIGO 2 READER) Misc flash 2023-0 Yes [id number] 1{kit} 1 Kit Unive rs glucose 2-14 every 14 ity of sensor 00:00: (fourteen) [place] (FREESTYLE 00 days. Medical RIGO 2 Branch SENSOR) Kit flash 2023-0 Yes [id number] 1{kit} 1 Kit Unive rs glucose 2-14 daily. ity of scanning 00:00: [place] reader 00 Medical (FREESTYLE Branch RIGO 2 READER) Misc flash 2023-0 Yes [id number] 1{kit} 1 Kit Unive rs glucose 2-14 every 14 ity of sensor 00:00: (fourteen) [place] (FREESTYLE 00 days. Medical RIGO 2 Branch SENSOR) Kit flash 2023-0 Yes [id number] 1{kit} 1 Kit Unive rs glucose 2-14 daily. ity of scanning 00:00: [place] reader 00 Medical (FREESTYLE Branch RIGO 2 READER) Misc flash 2023-0 Yes [id number] 1{kit} 1 Kit Unive rs glucose 2-14 every 14 ity of sensor 00:00: (fourteen) [place] (FREESTYLE 00 days. Medical RIGO 2 Branch SENSOR) Kit flash 2023-0 Yes [id number] 1{kit} 1 Kit Unive rs glucose 2-14 daily. ity of scanning 00:00: [place] reader 00 Medical (FREESTYLE Branch RIGO 2 READER) Misc flash 2023-0 Yes [id number] 1{kit} 1 Kit Unive rs glucose 2-14 every 14 ity of sensor 00:00: (fourteen) [place] (FREESTYLE 00 days. Medical RIGO 2 Branch SENSOR) Kit flash 2023-0 Yes [id number] 1{kit} 1 Kit Unive rs glucose 2-14 daily. ity of scanning 00:00: [place] reader 00 Medical (FREESTYLE Branch RIGO 2 READER) Misc flash 2023-0 Yes [id number] 1{kit} 1 Kit Unive rs glucose 2-14 every 14 ity of sensor 00:00: (fourteen) [place] (FREESTYLE 00 days. Medical RIGO 2 Branch SENSOR) Kit flash 2023-0 Yes [id number] 1{kit} 1 Kit Unive rs glucose 2-14 daily. ity of scanning 00:00: [place] reader 00 Medical (FREESTYLE Branch RIGO 2 READER) Misc flash 2023-0 Yes [id number] 1{kit} 1 Kit Unive rs glucose 2-14 every 14 ity of sensor 00:00: (fourteen) [place] (FREESTYLE 00 days. Medical RIGO 2 Branch SENSOR) Kit flash 2023-0 Yes [id number] 1{kit} 1 Kit Unive rs glucose 2-14 daily. ity of scanning 00:00: [place] reader 00 Medical (FREESTYLE Branch RIGO 2 READER) Misc flash 2023-0 Yes [id number] 1{kit} 1 Kit Unive rs glucose 2-14 every 14 ity of sensor 00:00: (fourteen) [place] (FREESTYLE 00 days. Medical RIGO 2 Branch SENSOR) Kit flash 2023-0 Yes [id number] 1{kit} 1 Kit Unive rs glucose 2-14 daily. ity of scanning 00:00: [place] reader 00 Medical (FREESTYLE Branch RIGO 2 READER) Misc flash 2023-0 Yes [id number] 1{kit} 1 Kit Unive rs glucose 2-14 every 14 ity of sensor 00:00: (fourteen) [place] (FREESTYLE 00 days. Medical RIGO 2 Branch SENSOR) Kit flash 2023-0 Yes [id number] 1{kit} 1 Kit Unive rs glucose 2-14 daily. ity of scanning 00:00: [place] reader 00 Medical (FREESTYLE Branch RIGO 2 READER) Misc flash 2023-0 Yes [id number] 1{kit} 1 Kit Unive rs glucose 2-14 every 14 ity of sensor 00:00: (fourteen) [place] (FREESTYLE 00 days. Medical RIGO 2 Branch SENSOR) Kit flash 2023-0 Yes [id number] 1{kit} 1 Kit Unive rs glucose 2-14 daily. ity of scanning 00:00: [place] reader 00 Medical (FREESTYLE Branch RIGO 2 READER) Misc flash 2023-0 Yes [id number] 1{kit} 1 Kit Unive rs glucose 2-14 every 14 ity of sensor 00:00: (fourteen) [place] (FREESTYLE 00 days. Medical RIGO 2 Branch SENSOR) Kit flash 2023-0 Yes [id number] 1{kit} 1 Kit Unive rs glucose 2-14 daily. ity of scanning 00:00: [place] reader 00 Medical (FREESTYLE Branch RIGO 2 READER) Misc flash 2023-0 Yes [id number] 1{kit} 1 Kit Unive rs glucose 2-14 every 14 ity of sensor 00:00: (fourteen) [place] (FREESTYLE 00 days. Medical RIGO 2 Branch SENSOR) Kit flash 2023-0 Yes [id number] 1{kit} 1 Kit Unive rs glucose 2-14 daily. ity of scanning 00:00: [place] reader 00 Medical (FREESTYLE Branch RIGO 2 READER) Misc flash 2023-0 Yes [id number] 1{kit} 1 Kit Unive rs glucose 2-14 every 14 ity of sensor 00:00: (fourteen) [place] (FREESTYLE 00 days. Medical RIGO 2 Branch SENSOR) Kit flash 2023-0 Yes [id number] 1{kit} 1 Kit Unive rs glucose 2-14 daily. ity of scanning 00:00: [place] reader 00 Medical (FREESTYLE Branch RIGO 2 READER) Misc flash 2023-0 Yes [id number] 1{kit} 1 Kit Unive rs glucose 2-14 every 14 ity of sensor 00:00: (fourteen) [place] (FREESTYLE 00 days. Medical RIGO 2 Branch SENSOR) Kit flash 2023-0 Yes [id number] 1{kit} 1 Kit Unive rs glucose 2-14 daily. ity of scanning 00:00: [place] reader 00 Medical (FREESTYLE Branch RIGO 2 READER) Misc flash 2023-0 Yes [id number] 1{kit} 1 Kit Unive rs glucose 2-14 every 14 ity of sensor 00:00: (fourteen) [place] (FREESTYLE 00 days. Medical RIGO 2 Branch SENSOR) Kit flash 2023-0 Yes [id number] 1{kit} 1 Kit Unive rs glucose 2-14 daily. ity of scanning 00:00: [place] reader 00 Medical (FREESTYLE Branch RIGO 2 READER) Misc flash 2023-0 Yes [id number] 1{kit} 1 Kit Unive rs glucose 2-14 every 14 ity of sensor 00:00: (fourteen) [place] (FREESTYLE 00 days. Medical RIGO 2 Branch SENSOR) Kit flash 2023-0 Yes [id number] 1{kit} 1 Kit Unive rs glucose 2-14 daily. ity of scanning 00:00: [place] reader 00 Medical (FREESTYLE Branch RIGO 2 READER) Misc flash 2023-0 Yes [id number] 1{kit} 1 Kit Unive rs glucose 2-14 every 14 ity of sensor 00:00: (fourteen) [place] (FREESTYLE 00 days. Medical RIGO 2 Branch SENSOR) Kit flash 2023-0 Yes [id number] 1{kit} 1 Kit Unive rs glucose 2-14 daily. ity of scanning 00:00: [place] reader 00 Medical (FREESTYLE Branch RIGO 2 READER) Misc flash 2023-0 Yes [id number] 1{kit} 1 Kit Unive rs glucose 2-14 every 14 ity of sensor 00:00: (fourteen) [place] (FREESTYLE 00 days. Medical RIGO 2 Branch SENSOR) Kit flash 2023-0 Yes [id number] 1{kit} 1 Kit Unive rs glucose 2-14 daily. ity of scanning 00:00: [place] reader 00 Medical (FREESTYLE Branch RIGO 2 READER) Misc flash 2023-0 Yes [id number] 1{kit} 1 Kit Unive rs glucose 2-14 every 14 ity of sensor 00:00: (fourteen) [place] (FREESTYLE 00 days. Medical RIGO 2 Branch SENSOR) Kit flash 2023-0 Yes [id number] 1{kit} 1 Kit Unive rs glucose 2-14 daily. ity of scanning 00:00: [place] reader 00 Medical (FREESTYLE Branch RIGO 2 READER) Misc flash 2023-0 Yes [id number] 1{kit} 1 Kit Unive rs glucose 2-14 every 14 ity of sensor 00:00: (fourteen) [place] (FREESTYLE 00 days. Medical RIGO 2 Branch SENSOR) Kit flash 2023-0 Yes [id number] 1{kit} 1 Kit Unive rs glucose 2-14 daily. ity of scanning 00:00: [place] reader 00 Medical (FREESTYLE Branch RIGO 2 READER) Misc flash 2023-0 Yes [id number] 1{kit} 1 Kit Unive rs glucose 2-14 every 14 ity of sensor 00:00: (fourteen) [place] (FREESTYLE 00 days. Medical RIGO 2 Branch SENSOR) Kit flash 2023-0 Yes [id number] 1{kit} 1 Kit Unive rs glucose 2-14 daily. ity of scanning 00:00: [place] reader 00 Medical (FREESTYLE Branch RIGO 2 READER) Misc flash 2023-0 Yes [id number] 1{kit} 1 Kit Unive rs glucose 2-14 every 14 ity of sensor 00:00: (fourteen) [place] (FREESTYLE 00 days. Medical RIGO 2 Branch SENSOR) Kit HYDROcodone 3-0 2023- No 1{tbl} 1 tablet, Univers -acetaminop 2-13 02- Oral, ity of hen (NORCO) 21:15: 20:14 ONCE, 1 [place] 10-325 mg 00 :00 dose, On Medica l tablet 1 Mon Branch tablet 08/27/22 at 1515, Routine flash 2023-0 Yes [id number] 1{kit} 1 Kit Unive rs glucose 2-12 every 14 ity of sensor 00:00: (fourteen) [place] (FREESTYLE 00 days. Medical RIGO 2 Branch SENSOR) Kit flash 2023-0 Yes [id number] 1{kit} 1 Kit Unive rs glucose 2-12 daily. ity of scanning 00:00: [place] reader 00 Medical (FREESTYLE Branch RIGO 2 READER) Misc flash 2023-0 Yes [id number] 1{kit} 1 Kit Unive rs glucose 2-12 every 14 ity of sensor 00:00: (fourteen) [place] (FREESTYLE 00 days. Medical RIGO 2 Branch SENSOR) Kit flash Yes [id number] 1{kit} 1 Kit Unive rs glucose 2-12 daily. ity of scanning 00:00: [place] reader 00 Medical (FREESTYLE Branch RIGO 2 READER) Misc flash 0 2022- No [id number] 1{kit} 1 Kit Univ ers glucose 2-12 02-14 every 14 ity of sensor 00:00: 00:00 (fourteen[place] (FREESTYLE 00 :00 days. Medical RIGO 2 Branch SENSOR) Kit flash 2022- No [id number] 1{kit} 1 Kit Univ ers glucose 2-12 02-14 daily. ity of scanning 00:00: 00:00 [place] reader 00 :00 Medical (FREESTYLE Branch RIGO 2 READER) [facility] [place] insulin No 12U 12 Units, Univ ers regular 08-25 Slow IV ity of human 02:00: 01:32 Push, [place] (HUMULIN R) 00 :00 ONCE, 1 Medic al injection dose, On Branch 12 Units Sat08/24/22 at 2000, Routine
Indicatio n for insulin: Hyperglyce pedro cefTRIAXone 2022- No 1000mg 1,000 mg, Univers (ROCEPHIN) 08-25 IV ity of 1,000 mg in 01:30: 02:39 [place], [place] NaCl 0.9% 00 :00 ONCE, 1 [...] Medical Infusion, Branch ONCE, 1 dose, On 08/24/23 at 1800, SAHARA proMETHazin 2022- No 25mg [...] ity o f (PF)) 01:15: 00:23 Push, [place] injection 00 :00 ONCE, 1 Medical 50 mcg dose, On Branch Libra 08/23/22 at 1915, Routine insulin No 10U 10 Units, Univ ers regular 08-23 Slow IV ity of human 22:45: 22:13 Push, [place] (HUMULIN R) 00 :00 ONCE, 1 Medic al injection dose, On Branch 10 Units Libra 08/23/22 at 1645, Routine
Indicatio n for insulin: Hyperglyce pedro NaCl 0.9% 2022- No 1000mL at 999 Uni vers (NS) bolus 08-23- mL/hr, ity of infusion 22:00: 00:01 1,000 mL, [place] 1,000 mL 00 :00 IV Medical Infusion, Branch ONCE, 1 dose, On Libra 08/23/22 at 1600, SAHARA proMETHazin No 25mg 25 mg, IV [...] mouth ity of tablet 19:25: in the [place] [address] morning Medical and 4 mg Branch at [...] mouth ity of tablet 19:25: in the [place] [address] morning Medical and 4 mg Branch at [...] mouth ity of tablet 19:25: in the [place] [address] morning Medical and 4 mg Branch at [...] mouth ity of tablet 19:25: in the [place] [address] morning Medical and 4 mg Branch at [...] mouth ity of tablet 19:25: in the [place] [address] morning Medical and 4 mg Branch at [...] mouth ity of tablet 19:25: in the [place] [address] morning Medical and 4 mg Branch at [...] mouth ity of tablet 19:25: in the [place] [address] morning Medical and 4 mg Branch at [...] mouth ity of tablet 19:25: in the [place] [address] morning Medical and 4 mg Branch at [...] mouth ity of tablet 19:25: in the [place] [address] morning Medical and 4 mg Branch at [...] mouth ity of tablet 19:25: in the [place] [address] morning Medical and 4 mg Branch at [...] mouth ity of tablet 19:25: in the [place] [address] morning Medical and 4 mg Branch at [...] mouth ity of tablet 19:25: in the [place] [address] morning Medical and 4 mg Branch at noon and 4 mg in the evening. insulin NPH 2022-0 Yes 45U inject 45 U nivers human 2-02 Units ity of isophane 19:25: [place] (NOVOLIN N 48 skin 2 Medical [place]) (two) Branch times daily. magnesium 0 Yes 400mg 400 mg, Univ ers oxide 08-16 Oral, BID, ity of (MAG-OX 14:00: [place] 400) tablet 00 on Libra Medica l 400 mg 08/16/22 at Branch 0800, Until Discontinu ed, Routine Sliding 2022-0 Yes Subcutaneo Univ ers Scale 08-16 , TID ity of Insulin - 14:00: MEALS, [place] Lispro 00 First dose Medical (HumaLOG) + on Libra Branch Fsbg 08/16/22 at Testing 0800, Until Discontinu ed, Routine magnesium 2022-0 202- No 2g 2 g, IV Univ ers [...] Until Discontinu ed, Routine NaCl 0.9% 2022-0 2022- No 1000mL at 999 Uni vers (NS) bolus 08-16 02-02 mL/hr, ity of infusion 09:00: 10:08 1,000 mL, [place] 1,000 mL 00 :51 IV Medical Infusion, [place] ONCE, 1 dose, On Libra 08/16/22 at 0300, STAT sennosides 2022-0 Yes 8.6mg 8.6 mg, Uni vers (SENOKOT) 08-16 Oral, BID, ity of tablet 8.6 08:30: First dose [place] mg 00 on [facility] Medical 08/16/22 at Branch 0230, Until Discontinu ed, Routine docusate 2022-0 Yes 100mg 100 mg, Unive rs (COLACE) 08-16 Oral, BID, ity o f capsule 100 08:30: First dose [place] mg 00 on [facility] Medical 08/16/22 at Branch 0230, Until Discontinu ed, Routine insulin NPH 2022-0 Yes 20U 20 Units, U nivers and regular 02 Subcutaneo it y of human 70-30 08:30: us, BIDAC, [place] (70-30 00 First dose Medical U-100 (after Branch INSULIN) last 100 unit/mL modificati (70-30) on) on Libra injection 08/16/22 at 20 Units 0230, Until Discontinu ed, Routine proCHLORper 2022-0 Yes 10mg 10 mg, Univ ers azine 2-02 Slow IV ity of (COMPAZINE) 08:19: Push, [place] injection 04 Q6HPRN, Medical 10 mg Starting Branch on Libra 08/16/22 at 0219, Until Discontinu ed, Routine, Nausea and Vomiting (N/V) FENTanyl PF Yes 50ug 50 mcg, Uni vers (SUBLIMAZE 08-16 Slow IV ity of (PF)) 05:33: Push, [place] injection 35 Q4HPRN, Medical 50 mcg Starting Branch on Sat08/15/22 at 2333, Until Discontinu ed, Routine, Pain (scale 7-10) sodium 2022- No 30g 30 g, Univers polystyrene 08-16 Oral, ity of sulfonate 03:15: 05:11 ONCE, 1 [place] (KAYEXALATE 00 :00 dose, On Medi efrain ) 15 Sat08/15/22 Branch gram/60 mL at 2115, suspension Routine 30 g insulin 2022- No 5U 5 Units, [facility] rs regular 08-16 Slow IV ity of human 02:15: 01:10 [place], [place] (HUMULIN R) 00 :00 ONCE, 1 Medic al injection 5 dose, On Bran ch Units Sat08/15/22 at 2015, STAT
In dication for insulin: Hyperglyce pedro cefTRIAXone 2022- No 1000mg 1,000 mg, Univers (ROCEPHIN) 08-16 IV ity of 1,000 mg in 01:45: 02:27 [place], [place] NaCl 0.9% 00 :00 ONCE, 1 [...] 00 :00 dose, On Medical 1,000 mg 2/1/23 Branc h at 1930, SAHARA iopamidol 2022- No [id number] 80mL 80 mL, U nivers (ISOVUE 08-16 Intravenou ity o f 370-500 mL) 00:45: 00:45 s, ONCE, 1 [place] injection 00 :00 dose, On Medica l 80 mL 08/15/22 Branch at 1845, Routine FENTanyl PF 2022- No 75ug 75 mcg, Un ela (SUBLIMAZE 08-15 Slow IV ity o f (PF)) 22:45: 22:19 Push, [place] injection 00 :00 ONCE, 1 Medical 75 mcg dose, On Branch Sat08/15/22 at 1645, STAT insulin 2022- No 10U 10 Units, Univ ers regular 08-15 Slow IV ity of human 22:30: 21:28 [place], [place] (HUMULIN R) 00 :00 ONCE, 1 Medic al injection dose, On Branch 10 Units Sat08/15/22 at 1630, STAT
In dication for insulin: Hyperglyce pedro NaCl 0.9% 2022- No 1000mL at 999 Uni vers (NS) bolus 08-15 mL/hr, ity of infusion 22:30: 23:40 1,000 mL, [place] 1,000 mL 00 :00 IV Medical Infusion, Branch ONCE, 1 dose, On Sat08/15/22 at 1630, STAT lisinopriL 2022-0 Yes [id number] 2.5mg Take 1 Univers 2.5 mg 1-01 tablet by ity of tablet 00:00: mouth in [place] [address] the Medical morning. Branch lisinopriL 2022-0 Yes [id number] 2.5mg Take 1 Univers 2.5 mg 1-01 tablet by ity of tablet 00:00: mouth in [place] [address] the Medical morning. Branch lisinopriL 2022-0 Yes [id number] 2.5mg Take 1 Univers 2.5 mg 1-01 tablet by ity of tablet 00:00: mouth in [place] [address] the Medical morning. [place] lisinopriL 2022-0 Yes [id number] 2.5mg Take 1 Univers 2.5 mg 1-01 tablet by ity of tablet 00:00: mouth in [place] 00 the Medical morning. Branch lisinopriL 2023-0 Yes [id number] 2.5mg Take 1 Univers 2.5 mg 1-01 tablet by ity of tablet 00:00: mouth in [place] the Medical morning. Branch lisinopriL 2023-0 Yes [id number] 2.5mg Take 1 Univers 2.5 mg 1-01 tablet by ity of tablet 00:00: mouth in [place] the Medical morning. Branch lisinopriL 2023-0 Yes [id number] 2.5mg Take 1 Univers 2.5 mg 1-01 tablet by ity of tablet 00:00: mouth in [place] the Medical morning. Branch lisinopriL 2023-0 Yes [id number] 2.5mg Take 1 Univers 2.5 mg 1-01 tablet by ity of tablet 00:00: mouth in [place] the Medical morning. Branch lisinopriL 2023-0 Yes [id number] 2.5mg Take 1 Univers 2.5 mg 1-01 tablet by ity of tablet 00:00: mouth in [place] the Medical morning. Branch lisinopriL 2023-0 Yes [id number] 2.5mg Take 1 Univers 2.5 mg 1-01 tablet by ity of tablet 00:00: mouth in [place] the Medical morning. Branch lisinopriL 2023-0 Yes [id number] 2.5mg Take 1 Univers 2.5 mg 1-01 tablet by ity of tablet 00:00: mouth in [place] the Medical morning. Branch lisinopriL 2023-0 Yes [id number] 2.5mg Take 1 Univers 2.5 mg 1-01 tablet by ity of tablet 00:00: mouth in [place] the Medical morning. Branch lisinopriL 2023-0 Yes [id number] 2.5mg Take 1 Univers 2.5 mg 1-01 tablet by ity of tablet 00:00: mouth in [place] the Medical morning. Branch lisinopriL 2023-0 Yes [id number] 2.5mg Take 1 Univers 2.5 mg 1-01 tablet by ity of tablet 00:00: mouth in [place] the Medical morning. Branch lisinopriL 2023-0 Yes [id number] 2.5mg Take 1 Univers 2.5 mg 1-01 tablet by ity of tablet 00:00: [place] [place] the Medical morning. Branch lisinopriL 2023-0 Yes [id number] 2.5mg Take 1 Univers 2.5 mg 1-01 tablet by ity of tablet 00:00: mouth in [place] 00 the Medical morning. Branch lisinopriL 2023-0 Yes [id number] 2.5mg Take 1 Univers 2.5 mg 1-01 tablet by ity of tablet 00:00: mouth in [place] the Medical morning. Branch lisinopriL 2023-0 Yes [id number] 2.5mg Take 1 Univers 2.5 mg 1-01 tablet by ity of tablet 00:00: mouth in [place] the Medical morning. Branch lisinopriL 2023-0 Yes [id number] 2.5mg Take 1 Univers 2.5 mg 1-01 tablet by ity of tablet 00:00: mouth in [place] the Medical morning. Branch lisinopriL 2023-0 Yes [id number] 2.5mg Take 1 Univers 2.5 mg 1-01 tablet by ity of tablet 00:00: mouth in [place] the Medical morning. Branch lisinopriL 2023-0 Yes [id number] 2.5mg Take 1 Univers 2.5 mg 1-01 tablet by ity of tablet 00:00: mouth in [place] the Medical morning. Branch lisinopriL 2023-0 Yes [id number] 2.5mg Take 1 Univers 2.5 mg 1-01 tablet by ity of tablet 00:00: mouth in [place] the Medical morning. Branch lisinopriL 2023-0 Yes [id number] 2.5mg Take 1 Univers 2.5 mg 1-01 tablet by ity of tablet 00:00: mouth in [place] the Medical morning. Branch lisinopriL 2023-0 Yes [id number] 2.5mg Take 1 Univers 2.5 mg 1-01 tablet by ity of tablet 00:00: mouth in [place] the Medical morning. Branch lisinopriL 2023-0 Yes [id number] 2.5mg Take 1 [facility] 2.5 mg 1-01 tablet by ity of tablet 00:00: mouth in [place] the Medical morning. Branch lisinopriL 2023-0 Yes [id number] 2.5mg Take 1 Univers 2.5 mg 1-01 tablet by ity of tablet 00:00: mouth in [place] the Medical morning. Branch lisinopriL 2023-0 Yes [id number] 2.5mg Take 1 [facility] 2.5 mg 1-01 tablet by ity of tablet 00:00: mouth in [place] the Medical morning. Branch lisinopriL 2023-0 Yes [id number] 2.5mg Take 1 [facility] 2.5 mg 1-01 tablet by ity of tablet 00:00: mouth in [place] the Medical morning. Branch lisinopriL 2023-0 Yes [id number] 2.5mg Take 1 [facility] 2.5 mg 1-01 tablet by ity of tablet 00:00: mouth in [place] the Medical morning. Branch lisinopriL 2023-0 Yes [id number] 2.5mg Take 1 Univers 2.5 mg 1-01 tablet by ity of tablet 00:00: mouth in [place] the Medical morning. Branch lisinopriL 2023-0 Yes [id number] 2.5mg Take 1 [facility] 2.5 mg 1-01 tablet by ity of tablet 00:00: mouth in [place] the Medical morning. Branch lisinopriL 2023-0 Yes [id number] 2.5mg Take 1 Univers 2.5 mg 1-01 tablet by ity of tablet 00:00: mouth in [place] the Medical morning. Branch lisinopriL 2023-0 Yes [id number] 2.5mg Take 1 Univers 2.5 mg 1-01 tablet by ity of tablet 00:00: mouth in [place] the Medical morning. Branch lisinopriL 2023-0 Yes [id number] 2.5mg Take 1 Univers 2.5 mg 1-01 tablet by ity of tablet 00:00: mouth in [place] the Medical morning. Branch lisinopriL 2023-0 Yes [id number] 2.5mg Take 1 Univers 2.5 mg 1-01 tablet by ity of tablet 00:00: mouth in [place] the Medical morning. Branch lisinopriL 2023-0 Yes [id number] 2.5mg Take 1 Univers 2.5 mg 1-01 tablet by ity of tablet 00:00: mouth in [place] the Medical morning. Branch lisinopriL 2023-0 Yes [id number] 2.5mg Take 1 Univers 2.5 mg 1-01 tablet by ity of tablet 00:00: mouth in [place] the Medical morning. Branch lisinopriL 2023-0 Yes [id number] 2.5mg Take 1 [facility] 2.5 mg 1-01 tablet by ity of tablet 00:00: mouth in [place] 00 the Medical morning. Branch lisinopriL 3-0 Yes [id number] 2.5mg Take 1 Univers 2.5 mg 1-01 tablet by ity of tablet 00:00: mouth in [place] the Medical morning. Branch lisinopriL 3-0 Yes [id number] 2.5mg Take 1 [facility] 2.5 mg 1-01 tablet by ity of tablet 00:00: mouth in [place] the Medical morning. Branch lisinopriL 3-0 Yes [id number] 2.5mg Take 1 Univers 2.5 mg 1-01 tablet by ity of tablet 00:00: mouth in [place] the Medical morning. Branch lisinopriL 3-0 Yes [id number] 2.5mg Take 1 Univers 2.5 mg 1-01 tablet by ity of tablet 00:00: mouth in [place] the Medical morning. Branch lisinopriL 3-0 Yes [id number] 2.5mg Take 1 Univers 2.5 mg 1-01 tablet by ity of tablet 00:00: mouth in [place] the Medical morning. Branch lisinopriL 3-0 Yes [id number] 2.5mg Take 1 Univers 2.5 mg 1-01 tablet by ity of tablet 00:00: mouth in [place] the Medical morning. Branch lisinopriL 3-0 Yes [id number] 2.5mg Take 1 [facility] 2.5 mg 1-01 tablet by ity of tablet 00:00: mouth in [place] the Medical morning. Branch lisinopriL 3-0 Yes [id number] 2.5mg Take 1 Univers 2.5 mg 1-01 tablet by ity of tablet 00:00: mouth in [place] 00 the Medical morning. Branch lisinopriL 3-0 Yes [id number] 2.5mg Take 1 Univers 2.5 mg 1-01 tablet by ity of tablet 00:00: mouth in [place] 00 the Medical morning. Branch lisinopriL 3-0 Yes [id number] 2.5mg Take 1 Univers 2.5 mg 1-01 tablet by ity of tablet 00:00: mouth in [place] 00 the Medical morning. [place] Nitrofurant 2021-07- No 100mg 100 mg, U nivers oin&Nit. [...] uration of therapy: 72 hours ceFEPIme 2021-07 202- No 1000mg 1,000 mg, U nivers (MAXIPIME) 07-21 IV ity of 1,000 mg in 21:15: 21:34 [place], [place] NaCl 0.9% 00 :48 ONCE, 1 [...] 40 mg 00 First dose Medical on Sat05/21/22 at 0900, Until Discontinu ed, Routine Sliding [...] 75 mcg dose, On Branch 05/20/22 at 1915, Routine dextrose 2021-07 Yes 250mL 250 mL, IV Un ela 10% (D10W) 1-07 Infusion, ity of bolus 01:12: PRN - SEE [place] infusion 23 INSTRUCTIO Medic al 250 mL NS, Branch Administer over 60 Minutes, Other, If blood glucose is < or = 70 mg/dL and patient is unable to swallow or has mental status changes, Starting on Spring 05/20/22 at 1912
If blood glucose is [...] KIT) 20 Starting Medical injection 1 on [facility] 05/20/22 at 1912, Until Discontinu ed, SAHARA, Blood Glucose < or = 70 mg/dL and patient is unable to swallow or has mental changes. HYDROmorpho 2021-07 Yes 4mg 4 mg, Unive rs ne 07-21 Oral, ity of (DILAUDID) 01:08: Q6HPRNTima s tablet 4 mg 42 Starting Medi efrain on [facility], [facility]–1983 05/20/22 at 1908, Until Discontinu ed, Routine, Pain (scale 7-10) proMETHazin 2021-07 Yes 12.5mg 12.5 mg, Univers e 07-21 Oral, ity of (PHENERGAN) 01:06: Q4HPRN [place] tablet 12.5 57 Starting Medi efrain mg on [facility], [facility] 05/20/22 at 1906, Until Discontinu ed, Routine, Nausea and Vomiting (N/V) acetaminoph 2021-07 Yes 650mg 650 mg, Un ela en 07-21 Oral, ity of (TYLENOL) 01:05: Q6HPRN, [place] tablet 650 57 Starting Medic al mg on Sun Branch 05/20/22 at 1905, Until Discontinu ed, Routine, Pain (scale 1-3) NaCl 0.9% 2021-07 No 1000mL at 999 Uni vers (NS) bolus 07-2107 mL/hr, ity of infusion 00:30: 00:35 1,000 mL, Tim as 1,000 mL 00 :00 IV Medical Infusion, Branch ONCE, 1 dose, On Spring 05/20/22 at 1830, STAT Nitrofurant 2021-07- No [id number] 100mg Take 1 Univers oin&Nit. 07-2115 capsule by ity of Macrocryst 00:00: 05:59 [...] Medical Infusion, Branch ONCE, 1 dose, On Spring 05/20/22 at 1745, [place] FENTanyl PF 2021-07 No 75ug 75 mcg, Un ela (SUBLIMAZE 07-2006 Slow IV ity o f (PF)) 23:45: 23:19 [place], [place] injection 00 :00 ONCE, 1 Medical 75 mcg dose, On Branch Spring 05/20/22 at 1745, Routine iopamidol 2021-07- No [id number] 85mL 85 mL, Univers (ISOVUE 0-30 10-30 [...] at 2045, piggyback SAH[place] cefdinir 2021-07 Yes [id number] 300mg Take 1 Un ela 300 mg 0-29 capsule by ity of capsule 00:00: mouth [place] 00 every 12 Medical (twelve) Branch hours. cefdinir 2021-07 Yes [id number] 300mg Take 1 Un ela 300 mg 0-29 capsule by ity of capsule 00:00: mouth [place] 00 every 12 Medical (twelve) Branch hours. cefdinir 2021-07- No [id number] 300mg Take 1 U nivers 300 mg [...] Yes 40mg 40 mg, Unive rs (LOVENOX) 0- Subcutaneo ity of injection 22:00: [place], [place] 40 mg 00 First dose Medical on Sat Branch 05/04/22 at 1700, Until Discontinu ed, Routine ceFEPIme 2021-07- No 2000mg 2,000 mg, U nivers (MAXIPIME) 05-09 IV ity of 2,000 mg in 21:00: 20:59 [place], [place] NaCl 0.9% 00 :00 Q8H ABX, [...] of e 0.125 % 18:30: dose on [place] ([facility] Sat Medical SOLUTION) 05/04/22 [place] solution at 1330, Until Discontinu ed, Routine ceFEPIme 2021-07- No 2000mg 2,000 mg, U nivers (MAXIPIME) 0-05-04 IV ity of 2,000 mg in 13:15: 14:55 [facility] [place] NaCl 0.9% 00 :00 ONCE, 1 Medical (NS) 50 mL dose, On [facility] h MINI-BAG Sat05/04/22 at 0815, Administer over 30 Minutes, 50 mL
Reas on for Anti-Infec tive: Empiric Therapy for Suspected Infection< br>Empiric Therapy Site: Urine
D uration of therapy: 5 days Sliding 2021-07 Yes Subcutaneo Univ ers Scale 0-21 us, AC+HS, ity of Insulin-Reg 12:30: First dose [place] ular + Fsbg 00 on Sat Medica l Testing 05/04/22 Branch at 0730, Until Discontinu ed, Routine acetaminoph 2021-07 Yes 650mg 650 mg, Un ela en 0-21 Oral, ity of (TYLENOL) 12:08: Q6HPRN, [place] [...] 2021-07 Yes 12.5mg 12.5 mg, Univers e 0- IV ity of (PHENERGAN) 12:07: Piggyback, [place] 12.5 mg in 04 Q4HPRN, Medica l NaCl 0.9% Starting Branch (NS) 50 mL on Sat IV 05/04/22 piggyback at 0707, Until Discontinu ed, Routine, Nausea and Vomiting (N/V) dextrose 2021-07 Yes 250mL 250 mL, IV Un ela 10% (D10W) 0- Infusion, ity of bolus 11:02: PRN - [...] 0-21 Oral, ity of (TYLENOL) 11:01: Q6HPRN, [place] tablet 650 26 Starting Medic al mg on Sat Branch 05/04/22 at 0601, Until Discontinu ed, Routine, Pain (scale 1-3) iopamidol 2021-07- No [id number] 100mL 100 mL, Univers (ISOVUE 05-04 Intravenou [...] Subcutaneo ity o f (LANTUS 02:00: us, [facility], [place] U-100) 00 First dose Medical injection (after Branch 26 Units last modificati on) on 02/24/22 at 2100, Until Discontinu ed, Routine insulin 2021- No 24U 24 Units, Univ ers glargine 02-23 08-12 Subcutaneo ity of (LANTUS 20:38: 20:43 us, [facility] 00 :00 1 dose, On Medical [...] i ty of injection 14:00: 17:23 us, [place] 16 Units 00 :36 QAM+HS, Medical First [...] 2100, Until Discontinu ed, Routine repaglinide Yes [id number] .5mg Take 1 Univers 0.5 mg 02-23 tablet by ity of tablet 00:00: mouth in [place] 00 the Medical morning Branch and 1 tablet at noon and 1 tablet in the evening. Take before meals. sodium Yes [id number] Apply to ela hypochlorit 02-23 area(s) ity o f e 0.25% 00:00: daily. [place] solution 00 Medical Branch repaglinide 2022-0 Yes [id number] .5mg Take 1 Univers 0.5 mg 8-12 tablet by ity of tablet 00:00: mouth in [place] [address] the Medical morning [place] and 1 tablet at noon and 1 tablet in the evening. Take before meals. sodium 2022-0 Yes [id number] Apply to Un ela hypochlorit 8-12 area(s) ity o f e 0.25% 00:00: daily. [facility] 00 [facility] Branch repaglinide 2022-0 Yes [id number] .5mg Take 1 Univers 0.5 mg 8-12 tablet by ity of tablet 00:00: mouth in [place] [address] the Medical morning [place] and 1 tablet at noon and 1 tablet in the evening. Take before meals. sodium 2022-0 Yes [id number] Apply to Un ela hypochlorit 8-12 area(s) ity o f e 0.25% 00:00: daily. [address] Branch repaglinide 2022-0 Yes [id number] .5mg Take 1 Univers 0.5 mg 8-12 tablet by ity of tablet 00:00: mouth in [place] [address] the [facility] morning [place] and 1 tablet at noon and 1 tablet in the evening. Take before meals. sodium 2022-0 Yes [id number] Apply to Un ela hypochlorit 8-12 area(s) ity o f e 0.25% 00:00: daily. [address] Branch repaglinide 2022-0 Yes [id number] .5mg Take 1 Univers 0.5 mg 8-12 tablet by ity of tablet 00:00: mouth in [place] [address] the [facility] morning [place] and 1 tablet at noon and 1 tablet in the evening. Take before meals. sodium 2022-0 Yes [id number] Apply to Un ela hypochlorit 8-12 area(s) ity o f e 0.25% 00:00: daily. [facility] 00 [facility] repaglinide 2022-0 Yes [id number] .5mg Take 1 Univers 0.5 mg 8-12 tablet by ity of tablet 00:00: mouth in [address] morning [place] and 1 tablet at noon and 1 tablet in the evening. Take before meals. sodium 2022-0 Yes [id number] Apply to Un ela hypochlorit 8-12 area(s) ity o f e 0.25% 00:00: daily. [facility] 00 Medical Branch repaglinide 2022-0 Yes [id number] .5mg Take 1 Univers 0.5 mg 8-12 tablet by ity of tablet 00:00: mouth in [place] [address] the Medical morning Branch and 1 tablet at noon and 1 tablet in the evening. Take before meals. sodium 2022-0 Yes [id number] Apply to Un ela hypochlorit 8-12 area(s) ity o f e 0.25% 00:00: daily. [place] [address] Medical Branch repaglinide 2022-0 Yes [id number] .5mg Take 1 Univers 0.5 mg 8-12 tablet by ity of tablet 00:00: mouth in [place] [address] the Medical morning [place] and 1 tablet at noon and 1 tablet in the evening. Take before meals. sodium 2-0 Yes [id number] Apply to Un ela hypochlorit 8-12 area(s) ity o f e 0.25% 00:00: daily. [place] [address] Medical Branch repaglinide 2-0 Yes [id number] .5mg Take 1 Univers 0.5 mg 8-12 tablet by ity of tablet 00:00: mouth in [place] [address] the [facility] morning [place] and 1 tablet at noon and 1 tablet in the evening. Take before meals. sodium 2-0 Yes [id number] Apply to Un ela hypochlorit 8-12 area(s) ity o f e 0.25% 00:00: daily. [place] [address] Medical Branch repaglinide 2022-0 Yes [id number] .5mg Take 1 Univers 0.5 mg 8-12 tablet by ity of tablet 00:00: mouth in [place] [address] the [facility] morning [place] and 1 tablet at noon and 1 tablet in the evening. Take before meals. sodium 2022-0 Yes [id number] Apply to Un ela hypochlorit 8-12 area(s) ity o f e 0.25% 00:00: daily. [place] [address] Medical Branch repaglinide 2022-0 Yes [id number] .5mg Take 1 Univers 0.5 mg 8-12 tablet by ity of tablet 00:00: mouth in [address] morning [place] and 1 tablet at noon and 1 tablet in the evening. Take before meals. sodium 2022-0 Yes [id number] Apply to Un ela hypochlorit 8-12 area(s) ity o f e 0.25% 00:00: daily. [place] [facility] repaglinide 2-0 Yes [id number] .5mg Take 1 Univers 0.5 mg 8-12 tablet by ity of tablet 00:00: mouth in [address] and 1 tablet at noon and 1 tablet in the evening. Take before meals. sodium 2-0 Yes [id number] Apply to Un ela hypochlorit 8-12 area(s) ity o f e 0.25% 00:00: daily. [place] solution 00 [facility] sodium 2022-0 Yes [id number] Apply to Un ela hypochlorit 8-12 area(s) ity o f e 0.25% 00:00: daily. [place] solution Medical Branch sodium 2-0 Yes [id number] Apply to Un ela hypochlorit 8-12 area(s) ity o f e 0.25% 00:00: daily. [place] solution 00 Medical Branch sodium 2022-0 Yes [id number] Apply to Un ela hypochlorit 8-12 area(s) ity o f e 0.25% 00:00: daily. [place] solution 00 [facility] sodium 2022-0 Yes [id number] Apply to Un ela hypochlorit 8-12 area(s) ity o f e 0.25% 00:00: daily. [place] solution 00 Medical Branch sodium 2022-0 Yes [id number] Apply to Un ela hypochlorit 8-12 area(s) ity o f e 0.25% 00:00: daily. [place] solution 00 Medical Branch sodium 2022-0 Yes [id number] Apply to Un ela hypochlorit 8-12 area(s) ity o f e 0.25% 00:00: daily. [place] solution 00 Medical [place] sodium 2022-0 Yes [id number] Apply to Un ela hypochlorit 8-12 area(s) ity o f e 0.25% 00:00: daily. [place] solution 00 Medical Branch sodium 2022-0 Yes [id number] Apply to Un ela hypochlorit 8-12 area(s) ity o f e 0.25% 00:00: daily. [place] solution 00 Medical Branch sodium 2022-0 Yes [id number] Apply to Un ela hypochlorit 8-12 area(s) ity o f e 0.25% 00:00: daily. [place] solution 00 Medical Branch sodium 2022-0 Yes [id number] Apply to Un ela hypochlorit 8-12 area(s) ity o f e 0.25% 00:00: daily. [place] solution 00 Medical Branch sodium 2022-0 Yes [id number] Apply to Un ela hypochlorit 8-12 area(s) ity o f e 0.25% 00:00: daily. [place] solution 00 Medical Branch sodium 2022-0 Yes [id number] Apply to Un ela hypochlorit 8-12 area(s) ity o f e 0.25% 00:00: daily. [place] solution 00 Medical Branch sodium 2022-0 Yes [id number] Apply to Un ela hypochlorit 8-12 area(s) ity o f e 0.25% 00:00: daily. [place] solution 00 Medical Branch sodium 2022-0 Yes [id number] Apply to Un ela hypochlorit 8-12 area(s) ity o f e 0.25% 00:00: daily. [place] solution 00 Medical Branch sodium 2022-0 Yes [id number] Apply to Un ela hypochlorit 8-12 area(s) ity o f e 0.25% 00:00: daily. [place] solution 00 Medical Branch sodium 2022-0 Yes [id number] Apply to Un eal hypochlorit 8-12 area(s) ity o f e 0.25% 00:00: daily. [place] solution 00 Medical Branch sodium 2022-0 Yes [id number] Apply to Un ela hypochlorit 8-12 area(s) ity o f e 0.25% 00:00: daily. [place] solution 00 Medical Branch sodium 2022-0 Yes [id number] Apply to Un ela hypochlorit 8-12 area(s) ity o f e 0.25% 00:00: daily. [place] solution 00 Medical Branch sodium 2022-0 Yes [id number] Apply to Un ela hypochlorit 8-12 area(s) ity o f e 0.25% 00:00: daily. [place] solution 00 Medical Branch sodium 2022-0 Yes [id number] Apply to Un ela hypochlorit 8-12 area(s) ity o f e 0.25% 00:00: daily. [place] solution 00 Medical Branch sodium 2022-0 Yes [id number] Apply to Un ela hypochlorit 8-12 area(s) ity o f e 0.25% 00:00: daily. [place] solution 00 Medical Branch sodium 2022-0 Yes [id number] Apply to Un ela hypochlorit 8-12 area(s) ity o f e 0.25% 00:00: daily. [place] solution 00 Medical Branch sodium 2022-0 Yes [id number] Apply to Un ela hypochlorit 8-12 area(s) ity o f e 0.25% 00:00: daily. [place] solution 00 Medical Branch sodium 2022-0 Yes [id number] Apply to Un ela hypochlorit 8-12 area(s) ity o f e 0.25% 00:00: daily. [place] solution 00 Medical Branch sodium 2022-0 Yes [id number] Apply to Un ela hypochlorit 8-12 area(s) ity o f e 0.25% 00:00: daily. [place] solution 00 Medical Branch sodium 2022-0 Yes [id number] Apply to Univers hypochlorit 8-12 105 area(s) ity o f e 0.25% 00:00: daily. [place] solution 00 Medical Branch sodium 2022-0 Yes [id number] Apply to Univers hypochlorit 8-12 105 area(s) ity o f e 0.25% 00:00: daily. [place] solution 00 Medical Branch sodium 2022-0 Yes [id number] Apply to Univers hypochlorit 8-12 105 area(s) ity o f e 0.25% 00:00: daily. [place] solution 00 Medical Branch sodium 2022-0 Yes [id number] Apply to Univers hypochlorit 8-12 105 area(s) ity o f e 0.25% 00:00: daily. [place] solution 00 Medical Branch sodium 2022-0 Yes [id number] Apply to Univers hypochlorit 8-12 105 area(s) ity o f e 0.25% 00:00: daily. [place] solution 00 Medical Branch sodium 2022-0 Yes [id number] Apply to Univers hypochlorit 8-12 105 area(s) ity o f e 0.25% 00:00: daily. [place] solution 00 Medical Branch sodium 2022-0 Yes [id number] Apply to Univers hypochlorit 8-12 105 area(s) ity o f e 0.25% 00:00: daily. [place] solution 00 Medical Branch sodium 2022-0 Yes [id number] Apply to Univers hypochlorit 8-12 105 area(s) ity o f e 0.25% 00:00: daily. [place] solution 00 Medical Branch sodium 2022-0 Yes [id number] Apply to Univers hypochlorit 8-12 105 area(s) ity o f e 0.25% 00:00: daily. [place] solution 00 Medical Branch sodium 2022-0 Yes [id number] Apply to Univers hypochlorit 8-12 105 area(s) ity o f e 0.25% 00:00: daily. [place] solution 00 Medical Branch sodium 2022-0 Yes [id number] Apply to Univers hypochlorit 8-12 105 area(s) ity o f e 0.25% 00:00: daily. [place] solution 00 Medical Branch sodium 2022-0 Yes [id number] Apply to Univers hypochlorit 8-12 105 area(s) ity o f e 0.25% 00:00: daily. [place] solution 00 Medical Branch sodium 2022-0 Yes [id number] Apply to Univers hypochlorit 8-12 105 area(s) ity o f e 0.25% 00:00: daily. [place] solution 00 Medical Branch sodium 2022-0 Yes [id number] Apply to Univers hypochlorit 8-12 105 area(s) ity o f e 0.25% 00:00: daily. [place] solution 00 Medical Branch sodium 2022-0 Yes [id number] Apply to Univers hypochlorit 8-12 105 area(s) ity o f e 0.25% 00:00: daily. [place] solution 00 Medical Branch sodium 2022-0 Yes [id number] Apply to Univers hypochlorit 8-12 105 area(s) ity o f e 0.25% 00:00: daily. [place] solution 00 Medical Branch sodium 2022-0 Yes [id number] Apply to Univers hypochlorit 8-12 105 area(s) ity o f e 0.25% 00:00: daily. [place] solution 00 Medical Branch sodium 2022-0 Yes [id number] Apply to Univers hypochlorit 8-12 105 area(s) ity o f e 0.25% 00:00: daily. [place] solution 00 Medical Branch sodium 2022-0 Yes [id number] Apply to Univers hypochlorit 8-12 105 area(s) ity o f e 0.25% 00:00: daily. [place] solution 00 Medical Branch sodium 2022-0 Yes [id number] Apply to Univers hypochlorit 8-12 105 area(s) ity o f e 0.25% 00:00: daily. [place] solution 00 Medical Branch sodium 2022-0 Yes [id number] Apply to Univers hypochlorit 8-12 105 area(s) ity o f e 0.25% 00:00: daily. [place] solution 00 Medical Branch sodium 2022-0 Yes [id number] Apply to Univers hypochlorit 8-12 105 area(s) ity o f e 0.25% 00:00: daily. [place] solution 00 Medical Branch sodium 2022-0 Yes [id number] Apply to Univers hypochlorit 8-12 105 area(s) ity o f e 0.25% 00:00: daily. [place] solution 00 Medical Branch sodium 2022-0 Yes [id number] Apply to Univers hypochlorit 8-12 105 area(s) ity o f e 0.25% 00:00: daily. [place] solution 00 Medical Branch sodium 2022-0 Yes [id number] Apply to Univers hypochlorit 8-12 105 area(s) ity o f e 0.25% 00:00: daily. [place] solution 00 Medical Branch sodium 2022-0 Yes [id number] Apply to Univers hypochlorit 8-12 105 area(s) ity o f e 0.25% 00:00: daily. [place] solution 00 Medical Branch sodium 2022-0 Yes [id number] Apply to Univers hypochlorit 02-23 105 area(s) ity o f e 0.25% 00:00: daily. [address] repaglinide 2021- No [id number] .5mg Take 1 Univers 0.5 mg 02-23 tablet by ity of tablet 00:00: 00:00 mouth in [place] 00 :00 [facility] and 1 tablet at on and 1 tablet in the evening. Take before meals. repaglinide 2021- No [id number] .5mg Take 1 Univers 0.5 mg 02-23 tablet by ity of tablet 00:00: 00:00 mouth in [place] 00 :00 [facility] and 1 tablet at on and 1 tablet in the evening. Take before meals. repaglinide 2021- No [id number] .5mg Take 1 Univers 0.5 mg 02-23 tablet by ity of tablet 00:00: 00:00 mouth in [place] 00 :00 [facility] and 1 tablet at noon and 1 tablet in the evening. Take before meals. apixaban 5 2021- No 5mg Take 1 Univ ers mg tablet 02-23 tablet by ity of 00:00: 04:59 mouth in [place] 00 :00 [facility] and 1 tablet in the evening. Do all this for 30 days. Indication s: Symtomatic Superficia l Vein thrombosis insulin 2021- No [id number] 24U inject 24 Univers glargine 02-23 Units ity of 100 unit/mL 00:00: 04:59 under the [place] injection 00 :00 skin at [facility] bedtime [place] for 30 days. metFORMIN 2021- No [id number] 500mg Take 1 Univers 500 mg 02-23 tablet by ity of tablet 00:00: 04:59 mouth in [place] 00 :00 [facility] and 1 tablet in the evening. Take with meals. Do all this for 30 days. dulaglutide 2- No [id number] .75mg inject 1 Univers (TRULICITY) 8-12 09-12 Pen under it y of 0.75 mg/0.5 00:00: 04:59 the [place] mL PnIj 00 :00 weekly for Medica l 30 days. Branch apixaban 5 2021- No 5mg Take 1 Univ ers mg tablet 02-23 tablet by ity of 00:00: 04:59 mouth in [place] 00 :00 the [facility] morning Branch and 1 tablet in the evening. Do all this for 30 days. Indication s: Symtomatic Superficia l Vein thrombosis insulin 2021- No [id number] 24U inject 24 Univers glargine 02-23 Units ity of 100 unit/mL 00:00: 04:59 under the [place] injection 00 :00 skin [facility] for 30 days. metFORMIN 2021-2021- No [id number] 500mg Take 1 Univers 500 mg 02-23 tablet by ity of tablet 00:00: 04:59 mouth in [place] 00 :00 the [facility] and 1 tablet in the evening. Take with meals. Do all this for 30 days. dulaglutide 2021- No [id number] .75mg inject 1 Univers (TRULICITY) 02-23 Pen under it y of 0.75 mg/0.5 00:00: 04:59 the skin [place] mL PnIj 00 :00 weekly for Medica l 30 days. Branch apixaban 5 2021- No 5mg Take 1 Univ ers mg tablet 02-23 tablet by ity of 00:00: 04:59 mouth in [place] 00 :00 the [facility] and 1 tablet in the evening. Do all this for 30 days. Indication s: Symtomatic Superficia l Vein thrombosis insulin 2021- No [id number] 24U inject 24 Univers glargine 02-23 Units ity of 100 unit/mL 00:00: 04:59 under the [place] injection 00 :00 skin [facility] for 30 days. metFORMIN 2021-2021- No [id number] 500mg Take 1 Univers 500 mg 02-23 tablet by ity of tablet 00:00: 04:59 mouth in [place] 00 :00 the [facility] and 1 tablet in the evening. Take with meals. Do all this for 30 days. dulaglutide 2021- No [id number] .75mg inject 1 Univers (TRULICITY) 02-23 Pen [...] Superficia l Vein thrombosis insulin 2021- No [id number] 24U inject 24 Univers glargine 02-23 Units ity of 100 unit/mL 00:00: 04:59 under the [place] injection 00 :00 skin at [facility] bedtime Branch for 30 days. metFORMIN 2021- No [id number] 500mg Take 1 Univers 500 mg 02-23 tablet by ity of tablet 00:00: 04:59 mouth in [place] 00 :00 the [facility] morning Branch and 1 tablet in the evening. Take with meals. Do all this for 30 days. dulaglutide 2021- No [id number] .75mg inject 1 Univers (TRULICITY) 02-23 Pen under it y of 0.75 mg/0.5 00:00: 04:59 the skin [place] mL PnIj 00 :00 weekly for Medica l 30 days. Branch linezolid 2021- No [id number] 600mg Take 1 Univers 600 mg 02-23 tablet by ity of tablet 00:00: 04:59 mouth [place] 00 :00 every 12 Medical (twelve) Branch hours for 14 days. fluconazole 2021- No [id number] 400mg Take 2 Univers 200 mg 02-23 tablets by ity of tablet 00:00: 04:59 mouth in [place] 00 :00 the [facility] morning Branch for 14 days. ciprofloxac 2021- No [id number] 500mg Take 2 Univers in HCl 250 02-23 tablets by it y of mg tablet 00:00: 04:59 mouth in [place] 00 :00 the Medical morning Branch and 2 tablets in the evening. Do all this for 14 days. linezolid 2021-0 2021- No [id number] 600mg Take 1 Univers 600 mg 8-12 08-27 tablet by ity of tablet 00:00: 04:59 mouth [place] 00 :00 every 12 Medical ([facility]) Branch hours for 14 days. fluconazole 2021-0 2021- No [id number] 400mg Take 2 Univers 200 mg 8-12 08-27 tablets by ity of tablet 00:00: 04:59 mouth in [place] 00 :00 the Medical morning Branch for 14 days. ciprofloxac 2021-0 2021- No [id number] 500mg Take 2 Univers in HCl 250 8- 08-27 tablets by it y of mg tablet 00:00: 04:59 mouth in [place] 00 :00 the Medical morning Branch and 2 tablets in the evening. Do all this for 14 days. linezolid 2021-0 2021- No [id number] 600mg Take 1 Univers 600 mg 8-12 08-27 tablet by ity of tablet 00:00: 04:59 mouth [place] 00 :00 every 12 [facility] ([facility]) Branch hours for 14 days. fluconazole 2021-0 2021- No [id number] 400mg Take 2 Univers 200 mg 8-12 08-27 tablets by ity of tablet 00:00: 04:59 mouth in [place] 00 :00 the [facility] morning Branch for 14 days. ciprofloxac 2021-0 2021- No [id number] 500mg Take 2 Univers in HCl 250 8- 08-27 tablets by it y of mg tablet 00:00: 04:59 mouth in [place] 00 :00 the Medical morning Branch and 2 tablets in the evening. Do all this for 14 days. linezolid 2021-0 2021- No [id number] 600mg Take 1 Univers 600 mg 8-12 08-27 tablet by ity of tablet 00:00: 04:59 mouth [place] 00 :00 every 12 Medical ([facility]) Branch hours for 14 days. fluconazole 2-0 2021- No [id number] 400mg Take 2 Univers 200 mg 8-12 08-27 tablets by ity of tablet 00:00: 04:59 mouth in [place] 00 :00 the Medical morning Branch for 14 days. ciprofloxac No [id number] 500mg Take 2 Univers in HCl 250 02-23 tablets by it y of mg tablet 00:00: 04:59 mouth in [facility] as 00 :00 the [facility] Branch and 2 tablets in the evening. Do all this for 14 days. gabapentin No [id number] 300mg Take 1 Univers 300 mg 02-2320 capsule by ity of capsule 00:00: 04:59 mouth in [place] 00 :00 the [facility] and 1 capsule at noon and 1 capsule in the evening. Do all this for 7 days. gabapentin No [id number] 300mg Take 1 Univers 300 mg 02-2320 capsule by ity of capsule 00:00: 04:59 mouth in [place] 00 :00 the [facility] and 1 capsule at noon and 1 capsule in the evening. Do all this for 7 days. gabapentin No [id number] 300mg Take 1 Univers 300 mg 02-2320 capsule by ity of capsule 00:00: 04:59 mouth in [place] 00 :00 the [facility] and 1 capsule at noon and 1 capsule in the evening. Do all this for 7 days. gabapentin No [id number] 300mg Take 1 Univers 300 mg 02-23 capsule by ity of capsule 00:00: 04:59 mouth in [place] 00 :00 the [facility] and 1 capsule at noon and 1 capsule in the evening. Do all this for 7 days. sodium No [id number] Apply to U [facility] hypochlorit 02-23 area(s) ity of e 0.25% 00:00: 00:00 daily. [place] solution 00 :00 [facility] repaglinide No [id number] .5mg Take 1 Univers 0.5 mg 02-23 tablet by ity of tablet 00:00: 00:00 mouth in [place] 00 :00 the [facility] and 1 tablet at noon and 1 tablet in the evening. Take before meals. Do all this for 30 days. Sliding 2022-0 2022- No Subcutaneo Uni vers Scale 02-22 us, [...] on Libra Medical 1,000 mg 02/22/22 at [facility] h 1400, Until Discontinu ed, Routine methocarbam Yes 500mg 500 mg, Un lea oL 02-22 Oral, Q6H, ity of (ROBAXIN) [...] Testing modificati on) on Libra 02/22/22 at 1200, Until Discontinu ed, Routine insulin NPH Yes 24U 24 Units, U nivers (HUMULIN N) 02-22 Subcutaneo it y of injection 14:00: us, QAM, [place] 24 Units 00 First dose Medic al (after Branch last modificati on) on Sat02/22/22 at 0900, Until Discontinu ed, Routine insulin NPH 2021- No 20U 20 Units, Univers (HUMULIN N) 02-22 Subcutaneo i ty of injection 14:00: 19:31 us, QAM, [place] 20 Units 00 :02 First dose Medic al (after Branch last modificati on) on Libra 02/22/22 at 0900, Until Discontinu ed, Routine insulin Yes 5U 5 Units, Univer s lispro 02-22 Subcutaneo ity of (human) 13:45: us, TID [place] (HumaLOG 00 MEALS, Medical U-100) First dose Branch injection 5 (after Units last modificati on) on [facility] 02/22/22 at 0845, Until Discontinu ed, Routine apixaban Yes 5mg 5 mg, Univers (ELIQUIS) 02-22 Oral, BID, ity of tablet 5 mg 13:00: First dose [place] 00 on [facility] Medical 02/22/22 at Branch 0800, Until Discontinu ed, Routine
Indicatio ns: DVT/PE celecoxib Yes 100mg 100 mg, Univ ers (CELEBREX) 02-22 Oral, BID ity of capsule 100 13:00: MEALS, [place] mg 00 First dose Medical on [facility] Branch 02/22/22 at 0800, Until Discontinu ed, Routine gabapentin Yes 300mg 300 mg, Uni vers (NEURONTIN) 02-22 Oral, TID, it y of capsule 300 13:00: First dose [place] mg 00 on [facility] Medical 02/22/22 at Branch 0800, Until Discontinu ed, Routine HYDROmorpho Yes 4mg 4 mg, Unive rs ne 02-22 Oral, TID, ity of (DILAUDID) 13:00: First dose [place] tablet 4 mg 00 (after Medica l last Branch modificati on) on [facility] 02/22/22 at 0800, Until Discontinu ed, [...] 0604, Routine, Pain (scale 7-10) insulin NPH 2021-2021- No 20U 20 Units, Univers (HUMULIN N) [...] Sliding 2021- No Subcutaneo Uni vers Scale 02-21-11 us, TID ity of Insulin - 13:00: [...] at 1256, Routine, Intra-op FENTanyl PF 2021- Epidural, Univers (SUBLIMAZE 02-20 ONCE INTRA it y of (PF)) 16:31: 17:56 PROCEDURE, [place] injection 00 :00 Starting Medica l on Sat02/20/22 at 1131, Until Sat02/20/22 at [...] ity of (human) 13:00: 12:44 us, TID [place] (HumaLOG 00 :50 MEALS, Medical U-100) First [...] insulin No 15U 15 Units, [facility] ers lispro 02-19 Subcutaneo ity of (human) [...] at 0800, Until Discontinu ed, Routine cholestyram 0 Yes Topical Uni vers ine-nystati 02-19 (Apply To ity of n-zinc 13:00: Affected [place] oxide 00 Areas), Medical ointment BID, First Branc h 1:1:1 dose (COMPOUNDED (after ) last modificati on) on Sat02/19/22 at 0800, Until Discontinu ed, Routine magnesium No 4g 4 g, IV [facility] ers sulfate in 02-19 Piggyback, it y [...] ity of (human) 17:00: 13:15 us, TID [place] (HumaLOG 00 :02 MEALS, Medical U-100) First [...] Routine HYDROmorpho 2021- No 2mg 2 mg, [facility] ne 02-18 08-08 Oral, ity of (DILAUDID) 00:17: 16:23 Q8HPRN, [place] tablet 2 mg 00 :26 Starting Medi efarin on Sat Branch 02/17/22 at 1917, Until 02/19/22 at 1123, Routine, Pain (scale 7-10) insulin 2021- No 17U 17 Units, [facility] ers lispro 02-17 Subcutaneo ity of (human) [...] 2021- No 4mg 4 mg, [facility] ne 02-17 Oral, ity of (DILAUDID) 17:24: 00:17 Q8HPRN, [place] tablet 4 mg 27 :12 Starting Medi efrain on Sat Branch 02/17/22 at 1224, Until 02/17/22 at 1917, Routine, Pain (scale 7-10) sodium 2021-0 Yes Topical, Univers hypochlorit 8 DAILY, ity of e 0.25% 14:00: First [place] (DAKIN'S 00 on Sat Medical SOLUTION) 02/17/22 at [facility] h solution 0900, Until Discontinu ed, SAHARA sodium 2022-0 Yes Topical, Univers hypochlorit 02-17 DAILY, ity of e 0.25% 14:00: First [place] (DAKIN'S 00 on Sat Medical SOLUTION) 02/17/22 at [facility] h solution 0900, Until Discontinu ed, SAHARA insulin 2021- No 12U 12 Units, Univ ers lispro 02-17 [...] Sliding Subcutaneo Uni vers Scale 02-17 us, TID [...] .2mg 0.2 mg, Un ela ne 02-17 08- Slow IV ity of (DILAUDID) 01:49: 02:17 Push, PRN, [place] injection 34 :00 1 dose, Medical 0.2 mg Starting Branch on 02/16/22 at 2049, Until 02/16/22 at 2116, Routine, Pain (scale 7-10)
U se approved by (Faculty): INTENS[facility]ARE UNIT KCL 20 2021- No 40meq 40 mEq, Univer s mEq/15 mL 02-16 Oral, ity of solution 40 23:30: 22:58 ONCE, 1 [place] mEq 00 :00 dose, On Medical 02/16/22 Branch at 1830, Routine Sliding 2021- No Subcutaneo Uni vers Scale 02-1606 us, Q4H, ity of Insulin - 22:15: 12:23 First dose [place] Lispro 00 :48 on Sat Medical (HumaLOG) + 02/16/22 at [facility] Fsbg 1715, Testing Until Discontinu ed, Routine insulin NPH 2021- No 22U 22 Units, Univers (HUMULIN N) 02-16 Subcutaneo i ty of injection 22:00: 19:55 us, QPM, [place] 22 Units 00 :31 First dose Medic al (after Branch last modificati on) on Sat02/16/22 at 1700, Until Discontinu ed, Routine magnesium 2021- No [...] Libra Medical (humaLOG) + 02/15/22 at [facility] Fsbg 1999, Testing Until Discontinu ed, Routine meropenem 2021- No 1000mg 1,000 mg, Univers (MERREM) 02-16 IV ity of 1,000 mg in 00:15: 02:[facility] [place] NaCl 0.9% 00 :44 Q8H ABX, Medica [...] 1 Medical 0.2 mg dose, On Branch [facility] 02/15/22 at 1900, Routine
Use approved by (Faculty): [facility] UN[facility] HYDROmorpho 2021- No .2mg 0.2 mg, Un ela ne 02-15 Slow IV ity of (DILAUDID) 19:30: 18:59 Push, [place] injection 00 :00 ONCE, 1 Medical 0.2 mg dose, On Branch [facility] 02/15/22 at 1430, Routine
Use approved by (Faculty): [facility] UNIT cholestyram 2021- No Topical Un ela ine-nystati 02-15 (Apply To it y of n-zinc 18:29: 12:46 Affected [place] oxide 12 :35 Areas), Medical ointment PRN, Branch 1:1:1 Starting (COMPOUNDED on Libra ) 02/15/22 at 1329, Until 02/19/22 at 0746, Routine, Wound care, Cuts, abrasions, and skin ulcers iopamidol 2021- No [id number] 60mL 60 mL, Univers (ISOVUE 02-15 Intravenou ity o f 370-500 mL) 17:25: 05:25 s, ONCE, 1 [place] injection 00 :00 dose, On Medica l 60 mL [facility] 02/15/22 Branch at 1230, Routine meropenem 2021- No 1000mg 1,000 mg, Univers (MERREM) 02-15 IV ity of 1,000 mg in 16:45: 20:14 Piggyback, [place] NaCl 0.9% 00 :00 ONCE, 1 Medical (NS) 50 mL dose, On Branc h MINI-BAG [facility] 02/15/22 at 1145, Administer over 30 Minutes, 50 mL
R estricted use approved by: NAMRATA 8TH FLOOR
R keegan for Anti-Infec tive: Documented Infection< br>Documen lester Infection Site: Urine
D uration of Therapy: 7 days pantoprazol Yes 40mg 40 mg, Univ ers e 8 Oral, ity of (PROTONIX) 14:00: DAILY, [place] EC tablet 00 First dose Medi efrain 40 mg on [facility] Branch 02/15/22 at 0900, Until Discontinu ed, Routine
Indicatio n for use: None of the above pantoprazol 0 Yes 40mg 40 mg, Univ ers e 8 Oral, ity of (PROTONIX) 14:00: DAILY, [place] EC tablet 00 First dose Medi efrain [...] bolus 02-15 08-04 mL/hr, ity of infusion 07:30: 06:55 1,000 mL, [place] 1,000 mL 00 :00 IV Medical Infusion, Branch ONCE, 1 dose, On [facility] 02/15/22 at 0230, SAHARA FENTanyl PF 2021- No 50ug 50 mcg, Un ela (SUBLIMAZE 02-15 Slow IV ity o f (PF)) 06:45: 06:01 Push, [place] injection 00 :00 ONCE, 1 Medical 50 mcg dose, On Branch Libra 02/15/22 at 0145, Routine cefTRIAXone 2021- No 1000mg 1,000 mg, Univers (ROCEPHIN) 02-15 IV ity of 1,000 mg in 05:30: 06:00 Piggyback, [place] NaCl 0.9% 00 :00 ONCE, 1 Medical (NS) 50 mL dose, On [facility] h MINI-BAG [facility] 02/15/22 at 0030, Administer over 30 [...] 2021- No 12.5mg 12.5 mg, Univers e 7-30 07-30 IV ity of (PHENERGAN) 21:30: 22:14 [...] Discontinu ed, Routine insulin NPH 2021- No [id number] 50U inject 50 Univers and regular 7-30 08-30 Units ity of human 70-30 00:00: 04:59 under the [place] 100 unit/mL 00 :00 skin every Me dical (70-30) morning Branch injection and evening for 30 days. proMETHazin 2021- No [id number] 12.5mg Insert 1 Univers e 12.5 mg 02-10 08-30 Suppositor ity of suppository 00:00: 04:59 y into [place] 00 :00 rectum Medical every 6 Branch (six) hours as needed for Nausea and Vomiting (N/V) for up to 30 days. proMETHazin 2021- No [id number] 12.5mg Take 0.5 Univers e 25 mg 7-30 08-30 tablets by ity o f tablet 00:00: 04:59 mouth [place] 00 :00 every 4 Medical (four) Branch hours as needed for Nausea and Vomiting (N/V) for up to 30 days. insulin NPH 2021- No [id number] 50U inject 50 Univers and regular 7-30 08-30 Units ity of human 70-30 00:00: 04:59 under the [place] 100 unit/mL 00 :00 skin every Me dical (70-30) morning Branch injection and evening for 30 days. proMETHazin 2021- No [id number] 12.5mg Insert 1 Univers e 12.5 mg 7-30 08-30 Suppositor ity of suppository 00:00: 04:59 y into [place] 00 :00 rectum Medical every 6 Branch (six) hours as needed for Nausea and Vomiting (N/V) for up to 30 days. proMETHazin 2021- No [id number] 12.5mg Take 0.5 Univers e 25 mg 7-30 08-30 tablets by ity o f tablet 00:00: 04:59 mouth [place] 00 :00 every 4 Medical (four) Branch hours as needed for Nausea and Vomiting (N/V) for up to 30 days. insulin NPH 2021- No [id number] 50U inject 50 Univers and regular 7-30 08-30 Units ity of human 70-30 00:00: 04:59 under the [place] 100 unit/mL 00 :00 skin every Me dical (70-30) morning Branch injection and evening for 30 days. proMETHazin 2021- No [id number] 12.5mg Insert 1 Univers e 12.5 mg 7-30 08-30 Suppositor ity of suppository 00:00: 04:59 y into [place] 00 :00 rectum Medical every 6 Branch (six) hours as needed for Nausea and Vomiting (N/V) for up to 30 days. proMETHazin 2021- No [id number] 12.5mg Take 0.5 Univers e 25 mg 7-30 08-30 tablets by ity o f tablet 00:00: 04:59 mouth [place] 00 :00 every 4 Medical (four) Branch hours as needed for Nausea and Vomiting (N/V) for up to 30 days. insulin NPH 2021- No [id number] 50U inject 50 Univers and regular 7-30 08-30 Units ity of human 70-30 00:00: 04:59 under the [place] 100 unit/mL 00 :00 skin every Me dical (70-30) morning Branch injection and evening for 30 days. proMETHazin 2021- No [id number] 12.5mg Insert 1 Univers e 12.5 mg 7-30 08-30 Suppositor ity of suppository 00:00: 04:59 y into [place] 00 :00 rectum Medical every 6 Branch (six) hours as needed for Nausea and Vomiting (N/V) for up to 30 days. proMETHazin 2021- No [id number] 12.5mg Take 0.5 Univers e 25 mg 7-30 08-30 tablets by ity o f tablet 00:00: 04:59 mouth [place] 00 :00 every 4 Medical (four) Branch hours as needed for Nausea and Vomiting (N/V) for up to 30 days. insulin NPH 2021- No [id number] 50U inject 50 Univers and regular 7-30 08-30 Units ity of human 70-30 00:00: 04:59 under the [place] 100 unit/mL 00 :00 skin every Me dical (70-30) morning Branch injection and evening for 30 days. proMETHazin 2021- No [id number] 12.5mg Insert 1 Univers e 12.5 mg 7-30 08-30 Suppositor ity of suppository 00:00: 04:59 y into [place] 00 :00 rectum Medical every 6 Branch (six) hours as needed for Nausea and Vomiting (N/V) for up to 30 days. proMETHazin 2021- No [id number] 12.5mg Take 0.5 Univers e 25 mg 7-30 08-30 tablets by ity o f tablet 00:00: 04:59 mouth [place] 00 :00 every 4 Medical (four) Branch hours as needed for Nausea and Vomiting (N/V) for up to 30 days. proMETHazin 0 2021- No [id number] 12.5mg Insert 1 Univers e 12.5 mg 7-30 08-30 Suppositor ity of suppository 00:00: 04:59 y into [place] 00 :00 rectum Medical every 6 Branch (six) hours as needed for Nausea and Vomiting (N/V) for up to 30 days. proMETHazin 2021-2021- No [id number] 12.5mg Take 0.5 Univers e 25 mg 7-30 08-30 tablets by ity o f tablet 00:00: 04:59 mouth [place] 00 :00 every 4 Medical (four) Branch hours as needed for Nausea and Vomiting (N/V) for up to 30 days. proMETHazin 2021- No [id number] 12.5mg Insert 1 Univers e 12.5 mg 7-30 08-30 Suppositor ity of suppository 00:00: 04:59 y into [place] 00 :00 rectum Medical every 6 Branch (six) hours as needed for Nausea and Vomiting (N/V) for up to 30 days. proMETHazin 2021-2021- No [id number] 12.5mg Take 0.5 Univers e 25 mg 7-30 08-30 tablets by ity o f tablet 00:00: 04:59 mouth [place] 00 :00 every 4 Medical (four) Branch hours as needed for Nausea and Vomiting (N/V) for up to 30 days. proMETHazin 0 2021- No [id number] 12.5mg Insert 1 Univers e 12.5 mg 7-30 08-30 Suppositor ity of suppository 00:00: 04:59 y into [place] 00 :00 rectum Medical every 6 Branch (six) hours as needed for Nausea and Vomiting (N/V) for up to 30 days. proMETHazin 2021-0 2- No [id number] 12.5mg Take 0.5 Univers e 25 mg 7-30 08-30 tablets by ity o f tablet 00:00: 04:59 mouth [place] 00 :00 every 4 Medical (four) Branch hours as needed for Nausea and Vomiting (N/V) for up to 30 days. proMETHazin 2022-0 2022- No [id number] 12.5mg Insert 1 Univers e 12.5 mg 02-10 Suppositor ity of suppository 00:00: 04:59 y into [place] 00 :00 rectum Medical every 6 Branch (six) hours as needed for Nausea and Vomiting (N/V) for up to 30 days. proMETHazin 2021- No [id number] 12.5mg Take 0.5 Univers e 25 mg 02-10 tablets by ity o f tablet 00:00: 04:59 mouth [place] 00 :00 every 4 Medical (four) Branch hours as needed for Nausea and Vomiting (N/V) for up to 30 days. insulin NPH 2021- No [id number] 50U inject 50 Univers and regular 02-10 08-12 Units ity of human 70-30 00:00: 00:00 under the [place] 100 unit/mL 00 :00 skin every Me dical (70-30) morning Branch injection and evening for 30 days. insulin 2021- No 5U 5 Units, Unive rs lispro 02-09 Subcutaneo ity of (human) 17:00: 14:45 us, TID [place] (HumaLOG 00 :04 MEALS, Medical U-100) First [...] o f powder 01:00: dose on 00 [facility] Medical 02/08/22 at Branch 2000, Until [...] ity of (human) 22:00: 14:02 , TID [place] (HumaLOG 00 :21 MEALS, Medical U-100) First dose Branch injection 3 on [facility] Units 02/08/22 at 1700, Until Discontinu ed, Routine mupirocin Yes Univers (BACTROBAN 02-08 ity of OINT) 2 % 21:45: [place] skin 00 Medical ointment Branch collagenase Yes Topical Uni vers (SANTYL) 02-08 (Apply To ity of ointment 21:45: Affected [place] 00 Areas), Medical DAILY, Branch First dose (after last modificati on) on Sat02/08/22 at 1645, Until Discontinu ed, Routine HYDROcodone 2021-0 Yes 1{tbl} 1 tablet, Univers -acetaminop 02-08 Oral, ity of hen (NORCO 19:54: Q6HPRN, [place] 5) 5-325 mg 07 Starting Medi efrain tablet 1 on Sat Branch tablet 02/08/22 at 1454, Until Discontinu ed, Routine, Pain (scale 4-6) HYDROcodone Yes 1{tbl} 1 tablet, Univers -acetaminop 02-08 Oral, ity of hen (NORCO) 19:47: Q6HPRN, [place] 10-325 mg 33 Starting Medica l tablet 1 on Sat Branch tablet 02/08/22 at 1447, Until Discontinu ed, Routine, Pain (scale 7-10) lactated 2021- No 1000mL at 100 Univ ers ringers IV 02-08 mL/hr, ity of infusion 18:30: 19:10 1,000 mL, [place] 1,000 mL 00 :52 IV Medical Infusion, Branch CONTINUOUS , Starting on Sat02/08/22 at 1330, Until 02/10/22 at 1410, Routine [...] , Starting on Sat02/07/22 at 2115, Until Sat02/08/22 at 0847, Routine proMETHazin 2021- No 12.5mg 12.5 mg, Univers e 02-08 IV ity of (PHENERGAN) 02:15: 01:35 Piggyback, [place] 12.5 mg in 00 :00 ONCE, 1 Medica l NaCl 0.9% dose, On Branch (NS) 50 mL Wed IV 02/07/22 at piggyback 2114, Routine insulin 2021- No 10U 10 Units, [facility] ers lispro 02-08 Subcutaneo ity of (human) [...] months HYDROmorphO 2021- No 1mg 1 mg, [facility] ne 02-08 Intravenou ity of (DILAUDID) [...] ed, Routine pantoprazol Yes 40mg 40 mg, [facility] ers e 02-08 Oral, ity of (PROTONIX) 00:30: DAILY, [place] EC tablet 00 First dose Medi efrain [...] on Sat Medical (HumaLOG) + 02/07/22 at [facility] 1700, Testing Until Discontinu ed, Routine acetaminoph Yes 1000mg 1,000 mg, Univers en 02-07 Oral, Q8H, ity of (TYLENOL) 21:15: First dose [place] tablet 00 on Sat Medical 1,000 mg 02/07/22 at [facility] h 1615, Until Discontinu [...] :00 ONCE, 1 Medical dose, On Branch 02/07/22 at 1330, Routine NaCl 0.9% 2021- No [...] doses, Medical mEq/100 mL First dose [facility] RTU IVPB 20 on Sat mEq [...] 00 :30 ONCE, 1 Medical dose, On Sat02/07/22 at 0645, Routine NaCl 0.45% 2021- [...] mg in 04:00: 06:06 s, ONCE, 1 [place] NaCl 0.9% 00 :00 dose, On Medica [...] o f human 01:30: 00:37 , ONCE, [place] (HUMULIN R) 00 :00 1 dose, On Me dical injection Tue Branch 10 Units 02/06/22 at 2030, Routine FENTanyl PF 2021- No 50ug 50 mcg, Un ela (SUBLIMAZE 02-07 Slow IV ity o f (PF)) 01:30: 00:28 Push, [place] injection 00 :00 ONCE, 1 Medical 50 mcg dose, On Branch Tu02/06/22 at 2030, Routine NaCl 0.9% No 1000mL at 999 Uni vers (NS) bolus 02-07 mL/hr, ity of infusion 00:30: 02:09 1,000 mL, [place] 1,000 mL 00 :00 IV Medical Infusion, Branch ONCE, 1 dose, On Tu02/06/22 at 1930, STAT iopamidol 2021- No [id number] 65mL 65 mL, Univers (ISOVUE 01-27 [id number] Intravenou ity of 370-500 mL) 02:29: 02:45 [...] o f human 00:30: 23:28 , ONCE, [place] (HUMULIN R) 00 :00 1 dose, On Me dical injection Fri Branch 10 Units 01/26/22 at 1930, Routine clindamycin 2021- No [id number] 600mg Take 2 Univers 300 mg 01-26 [id number] capsules ity of capsule 00:00: 04:59 by mouth 4 [place] 00 :00 (four) Medical times Branch daily for 7 days. clindamycin 2021- No [id number] 600mg Take 2 Univers 300 mg 01-26 [id number] capsules ity of capsule 00:00: 04:59 by mouth 4 [place] 00 :00 (four) Medical times [place] daily for 7 days. insulin NPH 2021- No 8U 8 Units, U nivers and regular 01-17 Subcutaneo i ty of human 70-30 12:30: 11:30 us, ONCE, [place] (70-30 00 :00 1 dose, On Medical U-100 01/17/22 Branch INSULIN) at 0730, 100 unit/mL [place]HARA (70-30) injection 8 Units insulin Yes [id number] 20U inject 20 U nivers glargine 7-02 Units ity of 100 unit/mL 00:00: under the [place] injection 00 skin Medical daily. Branch insulin Yes [id number] 20U inject 20 U nivers glargine 7-02 Units ity of 100 unit/mL 00:00: under the [place] injection 00 skin Medical daily. Branch insulin Yes [id number] 20U inject 20 U nivers glargine 7-02 Units ity of 100 unit/mL 00:00: under the [place] injection 00 skin Medical daily. Branch insulin Yes [id number] 20U inject 20 U nivers glargine 7-02 Units ity of 100 unit/mL 00:00: under the [place] injection 00 skin Medical daily. Branch insulin 2021- No [id number] 20U inject 20 Univers glargine 01-13 07-30 Units ity of 100 unit/mL 00:00: 00:00 under the [place] injection 00 :00 skin Medical daily. Branch insulin 2021- No [id number] 20U inject 20 Univers glargine 7- 07-30 Units ity of 100 unit/mL 00:00: 00:00 under the [place] injection 00 :00 skin Medical daily. Branch insulin Yes 20U 20 Units, Unive rs glargine 01-12 Subcutaneo ity o f (LANTUS 14:00: us, DAILY, [place] U-100) 00 First dose Medical injection (after Branch 20 Units last modificati on) on Sat01/12/22 at 0900, Until Discontinu ed, Routine insulin 2021- No [id number] 26U inject 26 [facility] lispro, 01-12 08-01 Units ity of human, 100 00:00: 04:59 under the [place] unit/mL 00 :00 skin 3 Medical injection (three) Branch times daily before meals for 30 days. insulin 2021- No [id number] 26U inject 26 [facility] lispro, 01-12 08- Units ity of human, 100 00:00: 04:59 under the [place] unit/mL 00 :00 skin 3 Medical injection (three) Branch times daily before meals for 30 days. insulin 2021- No [id number] 26U inject 26 [facility] lispro, 01-12 08- Units ity of human, 100 00:00: 04:59 under the [place] unit/mL 00 :00 skin 3 Medical injection (three) Branch times daily before meals for 30 days. insulin 2021- No [id number] 26U inject 26 [facility] lispro, 01-12 08- Units ity of human, 100 00:00: 04:59 under the [place] unit/mL 00 :00 skin 3 Medical injection (three) Branch times daily before meals for 30 days. insulin 2021- No [id number] 26U inject 26 [facility] lispro, 01-12 07-30 Units ity of human, 100 00:00: 00:00 under the [place] unit/mL 00 :00 skin 3 Medical injection (three) Branch times daily before meals for 30 days. insulin 2021- No [id number] 26U inject 26 [facility] lispro, 01-12 07-30 [...] injection last 26 Units modificati on) on Sat01/11/22 at 1715, Until Discontinu ed, Routine insulin [...] Subcutaneo ity o f (LANTUS 02:00: us, [facility], [place] U-100) 00 First dose [...] [place] mg 00 First dose Medical on Sat01/10/22 at 0900, Until Discontinu ed, Routine cefTRIAXone Yes 1000mg 1,000 mg, Univers (ROCEPHIN) 01-10 IV ity of 1,000 mg in 13:00: Piggyback, [place] NaCl 0.9% 00 Q24H ABX, Medic al (NS) 50 mL [facility] dose [facility] MINI-BAG on Sat01/10/22 at 0800, Until [...] Routine insulin 2021- No 15U 15 Units, [facility] ers lispro 01-10 Subcutaneo ity of (human) 12:30: 15:19 us, TIDAC, Tim as (HumaLOG 00 :51 First dose Medic al U-100) on Sat injection 01/10/22 at 15 Units 0730, Until Discontinu ed, Routine HYDROmorpho No 1mg 1 mg, Slow Univers ne 01-10 0701 IV Push, ity of (DILAUDID) 11:32: 11:31 Q6HPRN, [place] injection 1 00 :00 Starting Medi efrain mg on Sat Branch 01/10/22 at 0632, Until Sat01/12/22 at 0631, Routine, Pain (scale 7-10)
U se approved by (Faculty): [facility] PROVIDER NaCl 0.9% 2021- No 1000mL at 999 Uni vers (NS) bolus 01-10 mL/hr, ity of infusion 11:00: 11:04 1,000 mL, Tim as 1,000 mL 00 :00 IV Medical Infusion, Branch ONCE, 1 dose, On Sat01/10/22 at 0600, STAT HYDROcodone 2021-0 Yes 1{tbl} 1 tablet, Univers -acetaminop 01-10 [...] 40 Starting Medical injection 1 on Sat mg 01/10/22 at 0553, Until Discontinu ed, SAHARA, Blood Glucose < or = 70 mg/dL and patient is unable to swallow or has mental changes. acetaminoph 0 Yes 650mg 650 mg, Un ela en 01-10 Oral, ity of (TYLENOL) 10:52: Q6HPRN, [place] tablet 650 33 Starting Medic al mg on Sat Branch 01/10/22 at 0552, Until Discontinu ed, Routine, Pain (scale 1-3) NaCl 0.9% 0 202- No 1000mL at 999 Uni vers (NS) bolus 01-10 06-29 mL/hr, ity of infusion 09:00: 08:10 1,000 mL, Tim as 1,000 mL 00 :00 IV Medical Infusion, Branch ONCE, 1 dose, On Sat01/10/22 at 0400, STAT FENTanyl PF 2021- No 50ug 50 mcg, Un ela (SUBLIMAZE 01-10 Slow IV ity o f (PF)) 08:22: 08:27 Push, [place] injection 00 :00 ONCE, 1 Medical 50 mcg dose, On Branch Sat01/10/22 at 0330, Routine insulin 2021- No 10U 10 Units, Univ ers regular 01-10 Slow IV ity of human 07:00: 05:53 Push, [place] (HUMULIN R) 00 :00 ONCE, 1 Medic al injection dose, On Branch 10 Units Sat01/10/22 at 0200, STAT FENTanyl PF 2021- No 50ug 50 mcg, Un ela (SUBLIMAZE 01-10 Slow IV ity o f (PF)) 04:15: 04:04 Push, [place] injection 00 :00 ONCE, 1 Medical 50 mcg dose, On Branch Sat01/09/22 at 2315, STAT NaCl 0.9% 2021- No 1000mL at 999 Uni vers (NS) bolus 01-10 mL/hr, ity of infusion 04:00: 05:53 1,000 mL, Tim as 1,000 mL 00 :00 IV Medical Infusion, Branch ONCE, 1 dose, On Sat01/09/22 at 2300, STAT insulin 2021-0 2021- No 10U 10 Units, [facility] ers regular 01-10 Slow IV ity of human 04:00: 03:48 Push, [place] (HUMULIN R) 00 :00 ONCE, 1 Medic al injection dose, On Branch 10 Units Sat01/09/22 at 2300, STAT amLODIPine 2021-0 2021- No [id number] 10mg Take 1 Univers 10 mg 6-06 02-30 tablet by ity of tablet 00:00: 00:00 mouth [place] 00 :00 daily for Medical 30 days. Branch amLODIPine 2021-0 2021- No [id number] 10mg Take 1 Univers 10 mg 6-06 02-30 tablet by ity of tablet 00:00: 00:00 mouth [place] 00 :00 daily for Medical 30 days. Branch amLODIPine 2021- No [id number] 10mg Take 1 Univers 10 mg 6-26 07-27 tablet by ity of tablet 00:00: 04:59 mouth [place] 00 :00 daily for Medical 30 days. [place] amLODIPine 2021- No [id number] 10mg Take 1 Univers 10 mg 6-26 07-27 tablet by ity of tablet 00:00: 04:59 mouth [place] 00 :00 daily for Medical 30 days. Branch amLODIPine 2021- No [id number] 10mg Take 1 Univers 10 mg 6-26 07-27 tablet by ity of tablet 00:00: 04:59 mouth [place] 00 :00 daily for Medical 30 days. [place] amLODIPine 2021- No [id number] 10mg Take 1 Univers 10 mg 6-26 07-27 tablet by ity of tablet 00:00: 04:59 mouth [place] 00 :00 daily for Medical 30 days. [place] amLODIPine 2021- No [id number] 10mg Take 1 Univers 10 mg 6-26 07-27 tablet by ity of tablet 00:00: 04:59 mouth [place] 00 :00 daily for Medical 30 days. [place] amLODIPine 2021- No [id number] 10mg Take 1 Univers 10 mg 6- 07-27 tablet by ity of tablet 00:00: 04:59 mouth [place] 00 :00 daily for Medical 30 days. [place] amLODIPine 2021- No [id number] 10mg Take 1 Univers 10 mg 6-26 07-27 tablet by ity of tablet 00:00: 04:59 mouth [place] 00 :00 daily for Medical 30 days. [place] HYDROmorpho 2021- No .5mg 0.5 mg, Un ela ne 01-06 06-25 Slow IV ity of (DILAUDID) 18:00: 17:11 Push, [place] injection 00 :00 ONCE, 1 Medical 0.5 mg dose, On Branch 01/06/22 at 1300, Routine
Use approved by (Faculty): [facility] PROVIDER cefTRIAXone Yes 1000mg 1,000 mg, Univers (ROCEPHIN) 6-25 IV ity of 1,000 mg in 15:00: Piggyback, [place] NaCl 0.9% 00 Q24H ABX, Medic al (NS) 50 mL First dose Bra nch MINI-BAG on 01/06/22 at 1000, Until Discontinu ed, Administer over 30 Minutes, 50 mL
Reas on for Anti-Infec tive: Documented Infection< br>Documen lester Infection Site: Urine
D uration of Therapy: 7 days fluconazole Yes 200mg 200 mg, Un ela (DIFLUCAN) 625 Oral, ity of tablet 200 14:00: DAILY, [place] mg 00 First dose Medical on [facility] Branch 01/06/22 at 0900, Until Discontinu ed, SAHARA
Re ason for Anti-Infec tive: Documented Infection< br>Documen lester Infection Site: Urine
D uration of Therapy: 7 days Sliding Yes Subcutaneo Univ ers Scale 6-25 us, TID ity of Insulin - 13:00: MEALS+HS, [place] Lispro 00 First dose Medical (HumaLOG) + on [facility] Fsbg 01/06/22 at Testing 0800, Until Discontinu ed, Routine hydromorpho 2021- No 4ug Take 4 mcg Univers ne HCl 01-06 06-25 by mouth ity of (HYDROMORPH 11:55: 00:00 every 12 [place] ONE ORAL) 19 :00 (twelve) Medica l hours. [place] insulin 2021- No 10U 10 Units, [facility] ers lispro 01-06 06-25 Subcutaneo ity of (human) 07:00: 06:53 us, ONCE, [place] (HumaLOG 00 :00 1 dose, On Medic al U-100) [facility] injection 01/06/22 at 10 Units 0200, Routine glucagon Yes 1mg 1 mg, Univers (GLUCAGEN 01-06 Intramuscu ity of DIAGNOSTIC 05:50: lar, PRN, [place] KIT) 51 Starting Medical injection 1 on [facility] mg 01/06/22 at 0050, Until Discontinu ed, SAHARA, Blood Glucose < or = 70 mg/dL and patient is unable to swallow or has mental changes. dextrose Yes 250mL 250 mL, IV Un ela 10% (D10W) 01-06 Infusion, ity of bolus 05:50: PRN - SEE [place] infusion 51 INSTRUCTIO Medic al 250 mL [...] Subcutaneo ity o f (LANTUS 02:00: us, [facility], [place] U-100) 00 First dose Medical injection on Sat Branch 52 Units 01/05/22 at 2100, Until Discontinu ed, Routine Sliding 2021- No Subcutaneo Uni vers Scale 01-06 us, TID ity of Insulin - 02:00: 05:50 MEALS+HS, [place] Lispro 00 :40 First dose Medical (HumaLOG) + on Sat Branch Fsbg 01/05/22 at Testing 2100, Until Discontinu ed, Routine ciprofloxac 2021- No [id number] 500mg Take 1 Univers in HCl 500 01-06 tablet by ity of mg tablet 00:00: 04:59 mouth [place] 00 :00 every 12 Medical (twelve) Branch hours for 10 days. ciprofloxac 2021- No [id number] 500mg Take 1 Univers in HCl 500 01-06-06 tablet by ity of mg tablet 00:00: 04:59 mouth [place] 00 :00 every 12 Medical (twelve) Branch hours for 10 days. ciprofloxac 2021- No [id number] 500mg Take 1 Univers in HCl 500 [...] Indication s: acute pain ciprofloxac 2021- No [id number] 500mg Take 1 Univers in HCl 500 [...] dose, On Medi efrain mg Fri Branch 01/05/22 at 1715, Routine
Use approved [...] 01-05 Oral, ity of (TYLENOL) 07:37: Q6HPRN, [place] tablet 650 37 Starting Medic al mg on Fri Branch 01/05/22 at 0237, Until Discontinu ed, Routine, Pain (scale 1-3) iopamidol 2021- No [id number] 100mL 100 mL, Univers (ISOVUE 01-05 Intravenou ity o f 370-500 mL) 06:15: 05:05 s, ONCE, 1 [place] injection 00 :00 dose, On Medica l 100 mL Fri Branch 01/05/22 at 0115, Routine insulin 2021- No 10U 10 Units, [facility] ers regular 01-05 IV Push, ity of [...] 1000mL at 999 Uni vers (NS) bolus 624 06-24 mL/hr, ity of infusion 04:15: 06:41 1,000 mL, Itm as 1,000 mL 00 :00 IV Medical Infusion, Branch ONCE, 1 dose, On [place] 01/04/22 at 2315, STAT hydromorpho Yes 4ug Take 4 mcg Univers ne HCl 6-10 by mouth ity of (HYDROMORPH 19:50: every 12 [place] ONE ORAL) 08 (twelve) Medica l hours. [place] magnesium Yes 400mg 400 mg, Univ ers oxide 6-10 Oral, ity of (MAG-OX 14:00: DAILY, [place] 400) tablet 00 First dose Me dical 400 mg on Fri [place] 12/22/21 at 0900, Until Discontinu ed, Routine HYDROmorpho 2021- No 1mg 1 mg, Slow Univers ne 6-10 06-10 IV Push, ity of (DILAUDID) 05:15: 04:42 ONCE, 1 [place] injection 1 00 :00 dose, On Medi efrain mg Sat [place] 12/22/21 at 0015, Routine
Use approved by (Faculty): [facility] PROVIDER acetaminoph Yes 1000mg 1,000 mg, Univers en 6-10 Oral, Q8H, ity of (TYLENOL) 03:00: First dose [place] tablet 00 on [place] Medical 1,000 mg 12/21/21 at Branch 2200, Until Discontinu ed, Routine insulin Yes [id number] 52U inject 52 U nivers glargine 6-10 Units ity of 100 unit/mL 00:00: under the [place] injection 00 skin at Medical bedtime. Branch insulin 0 Yes [id number] 52U inject 52 U nivers glargine 6-10 Units ity of 100 unit/mL 00:00: under the [place] injection 00 skin at Medical bedtime. Branch insulin 0 Yes [id number] 52U inject 52 U nivers glargine 6-10 Units ity of 100 unit/mL 00:00: under the [place] injection 00 skin at Medical bedtime. Branch insulin 2021-0 Yes [id number] 52U inject 52 U nivers glargine 6-10 Units ity of 100 unit/mL 00:00: under the [place] injection 00 skin at Medical bedtime. Branch insulin 2021-0 Yes [id number] 52U inject 52 U nivers glargine 6-10 Units ity of 100 unit/mL 00:00: under the [place] injection 00 skin at Medical bedtime. Branch insulin 2021-0 Yes [id number] 52U inject 52 U nivers glargine 6-10 Units ity of 100 unit/mL 00:00: under the [place] injection 00 skin at Medical bedtime. Branch insulin 2021-0 Yes [id number] 52U inject 52 U nivers glargine 6-10 Units ity of 100 unit/mL 00:00: under the [place] injection 00 skin at Medical bedtime. Branch insulin 2021-0 Yes [id number] 52U inject 52 U nivers glargine 6-10 Units ity of 100 unit/mL 00:00: under the [place] injection 00 skin at Medical bedtime. Branch insulin 2021-0 2021- No [id number] 52U inject 52 Univers glargine 6-10 07-30 Units ity of 100 unit/mL 00:00: 00:00 under the [place] injection 00 :00 skin at Medical bedtime. Branch insulin 2021-0 2021- No [id number] 52U inject 52 Univers glargine 6-10 07-30 Units ity of 100 unit/mL 00:00: 00:00 under the [place] injection 00 :00 skin at Medical bedtime. Branch Insulin 2021-0 2021- No [id number] Use as Uni vers Safety 12-22 directed ity of [place], 00:00: 04:59 [place] Disp, 29 00 :00 Medical gauge x Branch 3/16" Ndle Insulin 2021-2021- No [id number] Use as Uni vers Safety 12-22 directed ity of [place], 00:00: 04:59 [place] Disp, 29 00 :00 Medical gauge x Branch 3/16" Ndle Insulin 2021-2021- No [id number] Use as Uni vers Safety 12-22 directed ity of [place], 00:00: 04:59 [place] Disp, 29 00 :00 Medical gauge x Branch 3/16" Ndle Insulin 2021- No [id number] Use as Uni vers Safety 12-22 directed ity of [place], 00:00: 04:59 [place] Disp, 29 00 :00 Medical gauge x Branch 3/16" Ndle Insulin 2021- No [id number] Use as Uni vers Safety 12-22 directed ity of [place], 00:00: 04:59 [place] Disp, 29 00 :00 Medical gauge x Branch 3/16" Ndle Insulin 2021- No [id number] Use as Uni vers Safety 12-22 directed ity of [place], 00:00: 04:59 [place] Disp, 29 00 :00 Medical gauge x Branch 3/16" Ndle Insulin 2021- No [id number] Use as Uni vers Safety 12-22 directed ity of [place], 00:00: 04:59 [place] Disp, 29 00 :00 Medical gauge x Branch 3/16" Ndle fluconazole 2021- No [id number] 200mg Take 1 Univers 200 mg 12-22 [...] Subcutaneo ity o f (LANTUS 02:00: , QHS, [place] U-100) 00 First dose Medical injection on Sat Branch 30 Units 12/20/21 at 2100, Until Discontinu ed, Routine HYDROmorpho 2021- No .5mg 0.5 mg, Un ela ne 12-20- Slow IV ity of (DILAUDID) 16:28: 19:33 [...] ne 12-20- IV Push, ity of (DILAUDID) 10:00: 09:23 ONCE, 1 [place] injection 1 00 :00 dose, On Medi efrain mg Sat12/20/21 Branch at 0500, Routine
Use approved by (Faculty): [facility] PROVIDER HYDROmorpho 2021- No 4mg 4 mg, Univ ers ne 12-20 Oral, ity of (DILAUDID) 08:40: 16:28 [id number], [place] tablet 4 mg 04 :14 [...] of 1,000 mg in 05:30: 16:58 Piggyback, [place] NaCl 0.9% 00 :42 Q8H ABX, Medica l (NS) 100 mL First dose Br anch MINI-BAG on Sat12/20/21 at 0030, Until Discontinu ed, Administer over 30 Minutes, 100 mL
Reas on for Anti-Infec tive: Empiric Therapy for Suspected Infection< br>Empiric Therapy Site: Urine
D uration of therapy: 7 days Sliding Yes Subcutaneo [facility] ers Scale 6-08 us, Q4H, ity of Insulin-Reg 05:00: First dose [place] ular + Fsbg 00 on Sat Medica [...] Slow IV ity of (COMPAZINE) 04:10: Push, [place] injection 40 Q6HPRN, Medical 10 mg Starting [...] ity of human 01:15: 01:51 from 13.74 [place] (HUMULIN R) 00 :00 Units = Medic [...] 1000mL at 999 Uni vers (NS) IV 6-07 06-08 mL/hr, ity of infusion 23:47: 00:53 [...] (three) Branch times daily before meals. insulin 2022-0 Yes [id number] 52U inject 52 U nivers glargine 6-06 Units ity of 100 unit/mL 00:00: under the [place] injection 00 skin at Medical bedtime. Branch insulin 0 Yes [id number] 15U inject 15 U nivers lispro, 6-06 Units ity of human, 100 00:00: under the [place] unit/mL 00 skin 3 Medical injection (three) Branch times daily before meals. insulin 0 Yes [id number] 52U inject 52 U nivers glargine 6-06 Units ity of 100 unit/mL 00:00: under the [place] injection 00 skin at Medical bedtime. Branch insulin Yes [id number] 15U inject 15 U nivers lispro, 6-06 Units ity of human, 100 00:00: under the [place] unit/mL 00 skin 3 Medical injection (three) Branch times daily before meals. insulin Yes [id number] 15U inject 15 U nivers lispro, 6-06 Units ity of human, 100 00:00: under the [place] unit/mL 00 skin 3 Medical injection (three) Branch times daily before meals. insulin Yes [id number] 15U inject 15 U nivers lispro, 6-06 Units ity of human, 100 00:00: under the [place] unit/mL 00 skin 3 Medical injection (three) Branch times daily before meals. insulin 2021- No [id number] 15U inject 15 [facility] lispro, 6-06 07-30 Units ity of human, 100 00:00: 00:00 under the [place] unit/mL 00 :00 skin 3 Medical injection (three) Branch times daily before meals. insulin 2021- No [id number] 15U inject 15 [facility] lispro, 6-06 07-30 Units ity of human, 100 00:00: 00:00 under the [place] unit/mL 00 :00 skin 3 Medical injection (three) Branch times daily before meals. insulin 2021- No [id number] 52U inject 52 Univers glargine 6-06 06-10 [...] (scale 7-10)
U se approved by (Faculty): [facility] PROVIDER insulin Yes .4U/kg/ 52 Units Uni vers glargine 605 d (rounded ity of (LANTUS 14:43: from 51.6 [place] U-100) 43 Units = Medical injection 0.4 Branch 52 Units Units/kg/d ay ?129 kg), Subcutaneo us, Q24H, First dose on 12/17/21 at 0944, Until Discontinu ed, Routine HYDROmorpho Yes 4mg 4 mg, Unive rs ne 05 Oral, ity of (DILAUDID) 02:21: Q6HPRN, [place] tablet 4 mg 55 Starting Medi efrain on Sat Branch 12/16/21 at 2121, Until Discontinu ed, Routine, Pain (scale 4-6) HYDROmorpho 2021- No 1mg 1 mg, Slow Univers ne 6 06-05 IV Push, ity of (DILAUDID) 02:21: 18:05 Q4HPRN, [place] injection 1 39 :59 Starting Medi efrain mg on Sat Branch 12/16/21 at 2121, Until 12/17/21 at 1305, Routine, Pain (scale 7-10)
U se approved by (Faculty): [facility] PROVIDER Sliding Yes Subcutaneo Univ ers Scale 6-04 us, Q4H, ity of Insulin - 17:00: First dose [place] lispro 00 on Sat Medical (humaLOG) + 12/16/21 at [facility] Fsbg 1200, Testing Until Discontinu ed, Routine insulin 2021- Yes .35U/kg 15 Units Uni vers lispro [...] Nausea and Vomiting (N/V) HYDROmorpho 202- No 4mg 4 mg, Univ ers ne [...] doses, Medical mEq/100 mL First dose [facility] RTU IVPB 20 on Fri mEq 12/15/21 [...] of 1,000 mg in 11:30: 16:04 Piggyback, [place] NaCl 0.9% 00 :40 Q24H ABX, Medic al (NS) 50 mL First dose [facility] MINI-BAG on Sat12/15/21 at 0630, Until Discontinu [...] 12-15 Oral, ity of (TYLENOL) 11:04: Q6HPRN, [place] tablet 650 03 Starting Medic al mg [...] IV ity of human 08:15: 07:13 Push, [place] (HUMULIN R) 00 :00 ONCE, 1 Medic [...] 12/15/21 at 0215, STAT iopamidol 2021- No [id number] 100mL 100 mL, Univers (ISOVUE 12-15 Intravenou [...] On Medica l (NS) 50 mL Sat12/15/21 [facility] MINI-BAG at 0000, Administer over [...] 2021- No 100ug 100 mcg, Univers (SUBLIMAZE 6-03 06-03 Slow IV ity o f (PF)) 03:30: 03:24 Push, [place] injection 00 :00 ONCE, 1 Medical 100 mcg dose, On Branch Libra 12/14/21 at 2230, STAT cefTRIAXone Yes 2000mg 2,000 mg, Univers (ROCEPHIN) 5-17 Intramuscu ity of injection 21:00: lar, Q24H, [place] 2,000 mg 00 First dose Medic al on Sat Branch 11/28/21 at 1600, Until Discontinu ed, [...] (twelve) Medica l hours. Branch collagenase Yes [id number] Apply to Univers 250 5-17 affected ity of unit/gram 00:00: area(s) [place] ointment 00 daily. Medical Branch collagenase Yes [id number] Apply to Univers 250 5-17 affected ity of unit/gram 00:00: area(s) [place] ointment 00 daily. Medical Branch collagenase Yes [id number] Apply to Univers 250 5-17 affected ity of unit/gram 00:00: area(s) [place] ointment 00 daily. Medical Branch collagenase 0 Yes [id number] Apply to Univers 250 5-17 affected ity of unit/gram 00:00: area(s) [place] ointment 00 daily. Medical Branch collagenase 0 Yes [id number] Apply to Univers 250 5-17 affected ity of unit/gram 00:00: area(s) [place] ointment 00 daily. Medical Branch collagenase Yes [id number] Apply to Univers 250 5-17 affected ity of unit/gram 00:00: area(s) [place] ointment 00 daily. Medical Branch collagenase 2021-0 Yes [id number] Apply to Univers 250 5-17 affected ity of unit/gram 00:00: area(s) [place] ointment 00 daily. Medical Branch collagenase 2021-0 Yes [id number] Apply to Univers 250 5-17 affected ity of unit/gram 00:00: area(s) [place] ointment 00 daily. Medical Branch collagenase 2021-0 Yes [id number] Apply to Univers 250 5-17 affected ity of unit/gram 00:00: area(s) [place] ointment 00 daily. Medical Branch collagenase 2021-0 Yes [id number] Apply to Univers 250 5-17 affected ity of unit/gram 00:00: area(s) [place] ointment 00 daily. Medical Branch collagenase 2021-0 Yes [id number] Apply to Univers 250 5-17 affected ity of unit/gram 00:00: area(s) [place] ointment 00 daily. Medical Branch collagenase 2021-0 Yes [id number] Apply to Univers 250 5-17 affected ity of unit/gram 00:00: area(s) [place] ointment 00 daily. Medical Branch collagenase 2021-0 Yes [id number] Apply to Univers 250 5-17 affected ity of unit/gram 00:00: area(s) [place] ointment 00 daily. Medical Branch collagenase 2021-0 Yes [id number] Apply to Univers 250 5-17 affected ity of unit/gram 00:00: area(s) [place] ointment 00 daily. Medical Branch collagenase 2021-0 Yes [id number] Apply to Univers 250 5-17 affected ity of unit/gram 00:00: area(s) [place] ointment 00 daily. Medical Branch collagenase 2021-0 Yes [id number] Apply to Univers 250 5-17 affected ity of unit/gram 00:00: area(s) [place] ointment 00 daily. Medical Branch collagenase 2021-0 Yes [id number] Apply to Univers 250 5-17 affected ity of unit/gram 00:00: area(s) [place] ointment 00 daily. Medical Branch collagenase 2021-0 Yes [id number] Apply to Univers 250 5-17 affected ity of unit/gram 00:00: area(s) [place] ointment 00 daily. Medical Branch collagenase 2021-0 Yes [id number] Apply to Univers 250 5-17 affected ity of unit/gram 00:00: area(s) [place] ointment 00 daily. Medical Branch collagenase 2021-0 Yes [id number] Apply to Univers 250 5-17 affected ity of unit/gram 00:00: area(s) [place] ointment 00 daily. Medical Branch collagenase 2021-0 Yes [id number] Apply to Univers 250 5-17 affected ity of unit/gram 00:00: area(s) [place] ointment 00 daily. Medical Branch collagenase 2021-0 Yes [id number] Apply to Univers 250 5-17 affected ity of unit/gram 00:00: area(s) [place] ointment 00 daily. Medical Branch collagenase 2021-0 Yes [id number] Apply to Univers 250 5-17 affected ity of unit/gram 00:00: area(s) [place] ointment 00 daily. Medical Branch collagenase 2021-0 Yes [id number] Apply to Univers 250 5-17 affected ity of unit/gram 00:00: area(s) [place] ointment 00 daily. Medical Branch collagenase 2021-0 Yes [id number] Apply to Univers 250 5-17 affected ity of unit/gram 00:00: area(s) [place] ointment 00 daily. Medical Branch collagenase 2021-0 Yes [id number] Apply to Univers 250 5-17 affected ity of unit/gram 00:00: area(s) [place] ointment 00 daily. Medical Branch collagenase 2021-0 Yes [id number] Apply to Univers 250 5-17 affected ity of unit/gram 00:00: area(s) [place] ointment 00 daily. Medical Branch collagenase 2021-0 Yes [id number] Apply to Univers 250 5-17 affected ity of unit/gram 00:00: area(s) [place] ointment 00 daily. Medical Branch collagenase 2021-0 Yes [id number] Apply to Univers 250 5-17 affected ity of unit/gram 00:00: area(s) [place] ointment 00 daily. Medical Branch collagenase 2021-0 Yes [id number] Apply to Univers 250 5-17 affected ity of unit/gram 00:00: area(s) [place] ointment 00 daily. Medical Branch collagenase 2021-0 Yes [id number] Apply to Univers 250 5-17 affected ity of unit/gram 00:00: area(s) [place] ointment 00 daily. Medical Branch collagenase 2021-0 Yes [id number] Apply to Univers 250 5-17 affected ity of unit/gram 00:00: area(s) [place] ointment 00 daily. Medical Branch collagenase 2021-0 Yes [id number] Apply to Univers 250 5-17 affected ity of unit/gram 00:00: area(s) [place] ointment 00 daily. Medical Branch collagenase 2021-0 Yes [id number] Apply to Univers 250 5-17 affected ity of unit/gram 00:00: area(s) [place] ointment 00 daily. Medical Branch collagenase 2021-0 Yes [id number] Apply to Univers 250 5-17 affected ity of unit/gram 00:00: area(s) [place] ointment 00 daily. Medical Branch collagenase 2021-0 Yes [id number] Apply to Univers 250 5-17 affected ity of unit/gram 00:00: area(s) [place] ointment 00 daily. Medical Branch collagenase 2021-0 Yes [id number] Apply to Univers 250 5-17 affected ity of unit/gram 00:00: area(s) [place] ointment 00 daily. Medical Branch collagenase 2021-0 Yes [id number] Apply to Univers 250 5-17 affected ity of unit/gram 00:00: area(s) [place] ointment 00 daily. Medical Branch collagenase 2021-0 Yes [id number] Apply to Univers 250 5-17 affected ity of unit/gram 00:00: area(s) [place] ointment 00 daily. Medical Branch collagenase 2021-0 Yes [id number] Apply to Univers 250 5-17 affected ity of unit/gram 00:00: area(s) [place] ointment 00 daily. Medical Branch collagenase 2021-0 Yes [id number] Apply to Univers 250 5-17 affected ity of unit/gram 00:00: area(s) [place] ointment 00 daily. Medical Branch collagenase 2021-0 Yes [id number] Apply to Univers 250 5-17 affected ity of unit/gram 00:00: area(s) [place] ointment 00 daily. Medical Branch collagenase 2021-0 Yes [id number] Apply to Univers 250 5-17 affected ity of unit/gram 00:00: area(s) [place] ointment 00 daily. [facility] collagenase 2021-0 Yes [id number] Apply to [facility] 250 5-17 affected ity of unit/gram 00:00: area(s) [place] ointment 00 daily. [facility] collagenase 2021-0 Yes [id number] Apply to [facility] 250 5-17 affected ity of unit/gram 00:00: area(s) [place] ointment 00 daily. [facility] collagenase 2021-0 Yes [id number] Apply to [facility] 250 5-17 affected ity of unit/gram 00:00: area(s) [place] ointment 00 daily. [facility] collagenase 2021-0 Yes [id number] Apply to [facility] 250 5-17 affected ity of unit/gram 00:00: area(s) [place] ointment 00 daily. [facility] collagenase 2021-0 Yes [id number] Apply to [facility] 250 5-17 affected ity of unit/gram 00:00: area(s) [place] ointment 00 daily. [facility] collagenase 2021-0 Yes [id number] Apply to [facility] 250 5-17 affected ity of unit/gram 00:00: area(s) [place] ointment 00 daily. [facility] collagenase 2021-0 Yes [id number] Apply to [facility] 250 5-17 affected ity of unit/gram 00:00: area(s) [place] ointment 00 daily. [facility] collagenase 2021-0 Yes [id number] Apply to [facility] 250 5-17 affected ity of unit/gram 00:00: area(s) [place] ointment 00 daily. [facility] collagenase 2021-0 Yes [id number] Apply to [facility] 250 5-17 affected ity of unit/gram 00:00: area(s) [place] ointment 00 daily. [facility] collagenase 2021-0 Yes [id number] Apply to [facility] 250 5-17 affected ity of unit/gram 00:00: area(s) [place] ointment 00 daily. [facility] collagenase 2021-0 Yes [id number] Apply to [facility] 250 5-17 affected ity of unit/gram 00:00: area(s) [place] ointment 00 daily. [facility] collagenase 2021-0 Yes [id number] Apply to [facility] 250 5-17 affected ity of unit/gram 00:00: area(s) [place] ointment 00 daily. [facility] collagenase 2021-0 Yes [id number] Apply to [facility] 250 5-17 affected ity of unit/gram 00:00: area(s) [place] ointment 00 daily. [facility] collagenase 2021-0 Yes [id number] Apply to [facility] 250 5-17 affected ity of unit/gram 00:00: area(s) [place] ointment 00 daily. [facility] collagenase 2021-0 Yes [id number] Apply to [facility] 250 5-17 affected ity of unit/gram 00:00: area(s) [place] ointment 00 daily. [facility] collagenase 2021-0 Yes [id number] Apply to [facility] 250 5-17 affected ity of unit/gram 00:00: area(s) [place] ointment 00 daily. [facility] collagenase 2021-0 Yes [id number] Apply to [facility] 250 5-17 affected ity of unit/gram 00:00: area(s) [place] ointment 00 daily. [facility] collagenase 2021-0 Yes [id number] Apply to [facility] 250 5-17 affected ity of unit/gram 00:00: area(s) [place] ointment 00 daily. [facility] collagenase 2021-0 Yes [id number] Apply to [facility] 250 5-17 affected ity of unit/gram 00:00: area(s) [place] ointment 00 daily. [facility] collagenase 2021-0 Yes [id number] Apply to [facility] 250 5-17 affected ity of unit/gram 00:00: area(s) [place] ointment 00 daily. [facility] collagenase 2021-0 Yes [id number] Apply to [facility] 250 5-17 affected ity of unit/gram 00:00: area(s) [place] ointment 00 daily. [facility] collagenase 2021-0 Yes [id number] Apply to [facility] 250 5-17 affected ity of unit/gram 00:00: area(s) [place] ointment 00 daily. [facility] collagenase 2021-0 Yes [id number] Apply to [facility] 250 5-17 affected ity of unit/gram 00:00: area(s) [place] ointment 00 daily. [facility] collagenase 2021-0 Yes [id number] Apply to [facility] 250 5-17 affected ity of unit/gram 00:00: area(s) [place] ointment 00 daily. [facility] collagenase 2021-0 Yes [id number] Apply to [facility] 250 5-17 affected ity of unit/gram 00:00: area(s) [place] ointment 00 daily. [facility] collagenase 2021-0 Yes [id number] Apply to [facility] 250 5-17 affected ity of unit/gram 00:00: area(s) [place] ointment 00 daily. [facility] collagenase 2021-0 Yes [id number] Apply to [facility] 250 5-17 affected ity of unit/gram 00:00: area(s) [place] ointment 00 daily. [facility] collagenase 2021-0 Yes [id number] Apply to [facility] 250 5-17 affected ity of unit/gram 00:00: area(s) [place] ointment 00 daily. [facility] collagenase 2021-0 Yes [id number] Apply to [facility] 250 5-17 affected ity of unit/gram 00:00: area(s) [place] ointment 00 daily. [facility] collagenase 2021-0 Yes [id number] Apply to [facility] 250 5-17 affected ity of unit/gram 00:00: area(s) [place] ointment 00 daily. [facility] collagenase 2021-0 Yes [id number] Apply to [facility] 250 5-17 affected ity of unit/gram 00:00: area(s) [place] ointment 00 daily. [facility] collagenase 2021-0 Yes [id number] Apply to [facility] 250 5-17 affected ity of unit/gram 00:00: area(s) [place] ointment 00 daily. [facility] collagenase 2021-0 Yes [id number] Apply to [facility] 250 5-17 affected ity of unit/gram 00:00: area(s) [place] ointment 00 daily. [facility] collagenase 2021-0 Yes [id number] Apply to [facility] 250 5-17 affected ity of unit/gram 00:00: area(s) [place] ointment 00 daily. [facility] collagenase 2021-0 Yes [id number] Apply to [facility] 250 5-17 affected ity of unit/gram 00:00: area(s) [place] ointment 00 daily. [facility] collagenase 2021-0 Yes [id number] Apply to [facility] 250 5-17 affected ity of unit/gram 00:00: area(s) [place] ointment 00 daily. [facility] collagenase 2022-0 Yes [id number] Apply to [facility] 250 5-17 affected ity of unit/gram 00:00: area(s) [place] ointment 00 daily. [facility] collagenase Yes [id number] Apply to [facility] 250 5-17 affected ity of unit/gram 00:00: area(s) [place] ointment 00 daily. [facility] docusate 2021- No [id number] 100mg Take 1 U nivers 100 mg 5-17 06-17 capsule by ity of capsule 00:00: 04:59 mouth 2 [place] 00 :00 (two) Medical times [place] daily for 30 days. lactobacill 2021- No [id number] .5mg Take 1 [facility] us 5-17 06-17 tablet by ity of acidophilus 00:00: 04:59 mouth 2 [place] 00 :00 (two) Medical times [place] daily for 30 days. sennosides 2021- No [id number] 8.6mg Take 1 [facility] 8.6 mg 5-17 06-17 tablet by ity of tablet 00:00: 04:59 mouth 2 [place] 00 :00 (two) Medical times [place] daily for 30 days. tamsulosin 2021- No [id number] .4mg Take 1 [facility] 0.4 mg 24 5-17 06-17 capsule by ity of hr capsule 00:00: 04:59 mouth [place] 00 :00 daily for Medical 30 days. Branch docusate 2021- No [id number] 100mg Take 1 U nivers 100 mg 5-17 06-17 capsule by ity of capsule 00:00: 04:59 mouth 2 [place] 00 :00 (two) Medical times Branch daily for 30 days. lactobacill 2021- No [id number] .5mg Take 1 [facility] us 5-17 06-17 tablet by ity of acidophilus 00:00: 04:59 mouth 2 [place] 00 :00 (two) Medical times Branch daily for 30 days. sennosides 2021- No [id number] 8.6mg Take 1 [facility] 8.6 mg 5-17 06-17 tablet by ity of tablet 00:00: 04:59 mouth 2 [place] 00 :00 (two) Medical times [place] daily for 30 days. tamsulosin 2021- No [id number] .4mg Take 1 [facility] 0.4 mg 24 5-17 06-17 capsule by ity of hr capsule 00:00: 04:59 mouth [place] 00 :00 daily for Medical 30 days. Branch docusate 2021- No [id number] 100mg Take 1 U nivers 100 mg 5-17 06-17 capsule by ity of capsule 00:00: 04:59 mouth 2 [place] 00 :00 (two) Medical times Branch daily for 30 days. lactobacill 2021- No [id number] .5mg Take 1 [facility] us 5-17 06-17 tablet by ity of acidophilus 00:00: 04:59 mouth 2 [place] 00 :00 (two) Medical times Branch daily for 30 days. sennosides 2021- No [id number] 8.6mg Take 1 [facility] 8.6 mg 5-17 06-17 tablet by ity of tablet 00:00: 04:59 mouth 2 [place] 00 :00 (two) Medical times [place] daily for 30 days. tamsulosin 2021- No [id number] .4mg Take 1 [facility] 0.4 mg 24 5-17 06-17 capsule by ity of hr capsule 00:00: 04:59 mouth [place] 00 :00 daily for Medical 30 days. Branch docusate 2021- No [id number] 100mg Take 1 U nivers 100 mg 5-17 06-17 capsule by ity of capsule 00:00: 04:59 mouth 2 [place] 00 :00 (two) Medical times Branch daily for 30 days. lactobacill 2021- No [id number] .5mg Take 1 [facility] us 5-17 06-17 tablet by ity of acidophilus 00:00: 04:59 mouth 2 [place] 00 :00 (two) Medical times Branch daily for 30 days. sennosides 2021- No [id number] 8.6mg Take 1 [facility] 8.6 mg 5-17 06-17 tablet by ity of tablet 00:00: 04:59 mouth 2 [place] 00 :00 (two) Medical times Branch daily for 30 days. tamsulosin 2021- No [id number] .4mg Take 1 [facility] 0.4 mg 24 5-17 06-17 capsule by ity of hr capsule 00:00: 04:59 mouth [place] 00 :00 daily for Medical 30 days. Branch docusate 2021- No [id number] 100mg Take 1 U nivers 100 mg 5-17 06-17 capsule by ity of capsule 00:00: 04:59 mouth 2 [place] 00 :00 (two) Medical times Branch daily for 30 days. lactobacill 2021- No [id number] .5mg Take 1 [facility] us 5-17 -17 tablet by ity of acidophilus 00:00: 04:59 mouth 2 [place] 00 :00 (two) Medical times Branch daily for 30 days. sennosides 2021- No [id number] 8.6mg Take 1 [facility] 8.6 mg 5-17 -17 tablet by ity of tablet 00:00: 04:59 mouth 2 [place] 00 :00 (two) Medical times Branch daily for 30 days. tamsulosin 2021- No [id number] .4mg Take 1 [facility] 0.4 mg 24 5-17 -17 capsule by ity of hr capsule 00:00: 04:59 mouth [place] 00 :00 daily for Medical 30 days. Branch metroNIDAZO 2021- No [id number] 500mg Take 1 [facility] LE 500 mg 5-17 05-21 tablet by ity of tablet 00:00: 04:59 mouth [place] 00 :00 every 12 Medical (twelve) Branch hours for 3 days. metroNIDAZO 2021- No [id number] 500mg Take 1 [facility] LE 500 mg 5-17 05-21 tablet by ity of tablet 00:00: 04:59 mouth [place] 00 :00 every 12 Medical (twelve) Branch hours for 3 days. metroNIDAZO 2021- No 500mg 500 mg, U nivers LE (FLAGYL) -15 -20 Oral, Q12H i ty of tablet 500 [...] (Apply To ity of ointment 22:15: Affected [place] 00 Areas), Medical DAILY, Branch First dose [...] at 0900, Until Discontinu ed, Routine vancomycin 2021-0 202- No 125mg 125 mg, Un ela (FIRVANQ) [...] dose [place] mg 00 on Sat [facility] 11/22/21 at Branch 0800, Until Discontinu ed, Routine docusate 0 Yes 100mg 100 mg, Unive rs (COLACE) 11-22 Oral, BID, ity o f capsule 100 13:00: First dose [place] mg 00 on Sat11/22/21 at Branch 0800, Until Discontinu ed, Routine HYDROmorpho 0 Yes 2mg 2 mg, Unive rs ne 11-22 Oral, TID, ity of (DILAUDID) 13:00: First dose [place] tablet 2 mg 00 on Sat Medica l 11/22/21 at Branch 0800, Until Discontinu ed lactobacill 2021-0 Yes .5mg 0.5 mg, Uni vers us 5-11 Oral, BID, ity of acidophilus 13:00: First dose [place] tablet 0.5 00 on Sat Medical mg 11/22/21 at Branch 0800, Until Discontinu ed, Routine ceFEPIme No 2g 2 g, IV Unive rs [...] 0500, Until 11/27/21 at 1141, Routine doxycycline 2021- No 100mg 100 mg, IV Univers (VIBRAMYCIN 11-2214 Piggyback, i ty of ) 100 mg in 09:15: 23:11 Q12H ABX, [place] NaCl 0.9% 00 :48 First dose Medi [...] Sat11/22/21 at 0030, STAT iopamidol 2021- No [id number] 150mL 150 mL, Univers (ISOVUE 11-22 Intravenou ity o f 370-500 mL) 04:45: 03:34 s, ONCE, 1 [place] injection 00 :00 dose, On Medica l 150 mL 11/21/21 at 2345, Routine ceFEPIme 2021- No [...] OXYCODONE 2021- No Take by [facility] ers HCL/ACETAMI 11-22 mouth. ity o f [...] (Same as: l 17:00: Lovenox) [place] Lovenox 0 No Notes: [facility] 4-13 (Same as: l 17:00: Lovenox) [place] Lovenox 0 No Notes: [facility] 4-13 (Same as: l 17:00: Lovenox) [place] Lovenox 0 No Notes: [facility] 4-13 (Same as: l 17:00: Lovenox) [place] Lovenox 0 No Notes: [facility] 4-13 (Same as: l 17:00: Lovenox) [place] Lovenox 0 No Notes: [facility] 4-13 (Same as: l 17:00: Lovenox) [place] Lovenox No Notes: [facility] 4-13 (Same as: l 17:00: Lovenox) [place] 00 Lovenox No Notes: [facility]oria 4-13 (Same as: l 17:00: Lovenox) [place] 00 promethazin No Notes: Erwin benjamin e 4-13 (Same as: l 16:47: Phenergan) [place] 00 promethazin 0 No Notes: Erwin benjamin e 4-13 (Same as: l 16:47: Phenergan) [place] 00 promethazin 0 No Notes: Erwin benjamin e 4-13 (Same as: l 16:47: Phenergan) [place] 00 promethazin 0 No Notes: Erwin benjamin e 4-13 (Same as: l 16:47: Phenergan) [place] promethazin 0 No Notes: Erwin benjamin e 4-13 (Same as: l 16:47: Phenergan) [place] promethazin 0 No Notes: Erwin benjamin e 4-13 (Same as: l 16:47: Phenergan) [place] 00 promethazin 0 No Notes: Erwin benjamin e 4-13 (Same as: l 16:47: Phenergan) [place] promethazin 0 No Notes: Erwin benjamin e 4-13 (Same as: l 16:47: Phenergan) [place] 00 albuterol No Notes: SEE Me moria [...] units/mL 4-13 SUB-Q, l 16:40: Daily, 0 [place] 00 Refill(s) Lantus 100 2021-0 No 10 [...] units/mL 4-12 0.1 mL, l 14:00: Route: [place] SUB-Q, Drug form: SOLN, Daily, Dosing Weight 127.727, kg, Start date: 10/24/21 9:00:00 CDT, Duration: 30 day, Stop date: 11/22/21 9:00:00 CDT, Infuse over: 0 hr, 0 Lantus 100 2022-0 No 10 unit, Mem oria units/mL 4-12 0.1 mL, l 14:00: Route: [place] SUB-Q, Drug form: SOLN, Daily, Dosing Weight [...] 4-12 0.1 mL, l 14:00: Route: [place] SUB-Q, Drug form: SOLN, Daily, Dosing Weight 127.727, kg, Start date: 10/24/21 9:00:00 CDT, Duration: 30 day, Stop date: 11/22/21 9:00:00 CDT, Infuse over: 0 hr, 0 Lantus 100 2022-0 No 10 unit, Mem oria units/mL 4-12 0.1 mL, l 14:00: Route: [place] SUB-Q, Drug form: SOLN, Daily, Dosing Weight 127.727, kg, Start date: 10/24/21 9:00:00 CDT, Duration: 30 day, Stop date: 11/22/21 9:00:00 CDT, Infuse over: 0 hr, 0 Lantus 100 2022-0 No 10 unit, Mem oria units/mL 4-12 0.1 mL, l 14:00: Route: [place] SUB-Q, Drug form: SOLN, Daily, Dosing Weight [...] 1000 mg Product Wasted: _0__ mg insulin 2-0 No Notes: [place] lispro 4-12 (Same as: l 05:00: Humalog) [place] 00 Roll in palms of hands gently; Do not shake vigorously . WASTE: F/P - Black; E - Municipal Trash Bin Stable for 28 days at room temperatur e. Expires in days from ____Date cefepime + 2022-0 No Notes: Memor ia sterile 4-12 (Same As: l water 10 mL 05:00: Maxipime) [place] 00 MEDICATION WASTE Product Size: 1000 mg Product Wasted: _0__ mg insulin No Notes: [place] lispro 4-12 (Same as: l 05:00: Humalog) [place] 00 Roll in palms of hands gently; [...] lispro 4-12 (Same as: l 05:00: Humalog) [place] 00 Roll in palms of hands gently; [...] lispro 4-12 (Same as: l 05:00: Humalog) [place] 00 Roll in palms of hands gently; [...] units/mL 4-11 0.1 mL, l 16:24: Route: [place] 00 SUB-Q, Drug form: SOLN, ONCE, Dosing [...] Infuse over: 0 hr, 0 Lantus 100 202-0 No 10 unit, Mem oria units/mL 4-11 0.1 mL, l 16:24: Route: [place] SUB-Q, Drug form: SOLN, ONCE, Dosing Weight 127.727, kg, Start date: 10/23/21 11:24:00 CDT, Stop date: 10/23/21 11:24:00 CDT, Infuse over: 0 hr, 0 Lantus 100 2022-0 No 10 unit, Mem oria units/mL 4-11 0.1 mL, l 16:24: Route: [place] SUB-Q, Drug form: SOLN, ONCE, Dosing Weight 127.727, kg, Start date: 10/23/21 11:24:00 CDT, Stop date: 10/23/21 11:24:00 CDT, Infuse over: 0 hr, 0 Lantus 100 2021-0 No 10 unit, Mem oria units/mL 4-11 0.1 mL, l 16:24: Route: [place] SUB-Q, Drug form: SOLN, ONCE, Dosing Weight 127.727, kg, Start date: 10/23/21 11:24:00 CDT, Stop date: 10/23/21 11:24:00 CDT, Infuse over: 0 hr, 0 Lantus 100 2021-0 No 10 unit, Mem oria units/mL 4-11 0.1 mL, l 16:24: Route: [place] SUB-Q, Drug form: SOLN, ONCE, Dosing Weight 127.727, kg, Start date: 10/23/21 11:24:00 CDT, Stop date: 10/23/21 11:24:00 CDT, Infuse over: 0 hr, 0 Lantus 100 2021-0 No 10 unit, Mem oria units/mL 4-11 0.1 mL, l 16:24: Route: [place] SUB-Q, Drug form: SOLN, ONCE, Dosing Weight [...] IV 4-11 500 ml/hr, l 15:15: Infuse [place] 00 Over: 1 hr, Route: IV, 500, Drug form: INJ, ONCE, Priority: STAT, Dosing Weight 127.727 kg, Start date: 10/23/21 10:15:00 CDT, Stop date: 10/23/21 10:15:00 CDT, 0 NS (Bolus) 2021-0 No 500 mL, Erwin benjamin IV 4-11 500 ml/hr, l 15:15: Infuse [place] 00 Over: 1 hr, Route: IV, 500, Drug form: INJ, ONCE, Priority: STAT, Dosing Weight 127.727 kg, Start date: 10/23/21 10:15:00 CDT, Stop date: 10/23/21 10:15:00 CDT, 0 NS (Bolus) 2021-0 No 500 mL, Erwin benjamin IV 4-11 500 ml/hr, l 15:15: Infuse [place] 00 Over: 1 hr, Route: IV, 500, [...] IV 4-11 500 ml/hr, l 15:15: Infuse [place] 00 Over: 1 hr, Route: IV, 500, Drug form: INJ, ONCE, Priority: STAT, Dosing Weight 127.727 kg, Start date: 10/23/21 10:15:00 CDT, Stop date: 10/23/21 10:15:00 CDT, 0 NS (Bolus) 2021-0 No 500 mL, Erwin benjamin IV 4-11 500 ml/hr, l 15:15: Infuse [place] 00 Over: 1 hr, Route: IV, 500, Drug form: INJ, ONCE, Priority: STAT, Dosing Weight 127.727 kg, Start date: 10/23/21 10:15:00 CDT, Stop date: 10/23/21 10:15:00 CDT, 0 Dextrose 2021-0 No 12.5 gm, Memor ia 50% Syringe 11 25 mL, l (D50W) 13:59: Route: [place] 00 IVP, Drug Form: INJ, Dosing Weight 127.727, kg, PRN, PRN Blood Glucose Results, Start date: 10/23/21 8:59:00 CDT, Duration: 30 day, Stop date: 11/22/21 8:58:00 CDT, 0 glucagon 2021-0 No 1 mg, Memoria 4-11 Route: IM, l 13:59: Drug form: [place] 00 PDR/INJ, PRN, Dosing Weight 127.727, kg, PRN Blood Glucose Results, Start date: 10/23/21 8:59:00 CDT, Duration: 30 day, Stop date: 11/22/21 8:58:00 CDT, 0 insulin 2022-0 No Notes: [place] lispro 4-11 (Same as: l 13:59: Humalog) [place] 00 Roll in palms of hands gently; [...] 4-11 Route: IM, l 13:59: Drug form: [place] 00 PDR/INJ, PRN, Dosing Weight 127.727, kg, [...] 4-11 25 mL, l (D50W) 13:59: Route: [place] 00 IVP, Drug Form: INJ, Dosing Weight 127.727, kg, PRN, PRN Blood Glucose Results, Start date: 10/23/21 8:59:00 CDT, Duration: 30 day, Stop date: 11/22/21 8:58:00 CDT, 0 glucagon 202-0 No 1 mg, Memoria 4-11 Route: IM, l 13:59: Drug form: [place] 00 PDR/INJ, PRN, Dosing Weight 127.727, kg, [...] -11 25 mL, l (D50W) 13:59: Route: [place] 00 IVP, Drug Form: INJ, Dosing Weight [...] lispro 4-11 (Same as: l 13:59: Humalog) [place] 00 Roll in palms of hands gently; Do not shake vigorously . WASTE: F/P - Black; E - Municipal Trash Bin Stable for 28 days at room temperatur e. Expires in days from ____Date Dextrose 2-0 No 12.5 gm, Memor ia 50% Syringe 4-11 25 mL, l (D50W) 13:59: Route: [place] 00 IVP, Drug Form: INJ, Dosing Weight 127.727, kg, PRN, PRN Blood Glucose Results, Start date: 10/23/21 8:59:00 CDT, Duration: 30 day, Stop date: 11/22/21 8:58:00 CDT, 0 glucagon 2021-0 No 1 mg, [facility] 4-11 Route: IM, l 13:59: Drug form: [place] 00 PDR/INJ, PRN, Dosing Weight 127.727, kg, [...] Stop date: 11/22/21 8:58:00 CDT, 0 glucagon 2-0 No 1 mg, [facility] 4-11 Route: IM, [...] 4-11 25 mL, l (D50W) 13:59: Route: [place] 00 IVP, Drug Form: INJ, Dosing Weight 127.727, kg, PRN, PRN Blood Glucose Results, Start date: 10/23/21 8:59:00 CDT, Duration: 30 day, Stop date: 11/22/21 8:58:00 CDT, 0 glucagon 2022-0 No 1 mg, [facility] 4-11 Route: IM, l 13:59: Drug form: [place] PDR/INJ, PRN, Dosing Weight 127.727, kg, PRN [...] Dilute in l mg/mL 17:00: at least [place] intravenous 50ml D5W solution + or NS. Sodium [...] Dilute in l mg/mL 17:00: at least [place] intravenous 00 50ml D5W solution + or [...] Dilute in l mg/mL 17:00: at least [place] intravenous 00 50ml D5W solution + or NS. Sodium Infusion Chloride rate = 20 0.9% IV 50 mg/min mL (Same As: Depacon) Hazardous Drug Group 3:Reproduc tive risk Hazardous Drug -- Refer to safe handling procedure PPE Matrix valproic No Notes: Memoria acid 100 4-10 Dilute in l mg/mL 17:00: at least [place] intravenous 00 50ml D5W solution + or NS. Sodium Infusion Chloride rate = 20 0.9% IV 50 mg/min mL (Same As: Depacon) Hazardous Drug Group 3:Reproduc tive risk Hazardous Drug -- Refer to safe handling procedure PPE Matrix Solu-MEDROL No Notes: Erwin benjamin 4-10 (Same l 16:43: as:Solu-MO [place] 00 DROL, A-Methapre d) MEDICATION WASTE Product Size: 1000 mg Product Wasted: _0__ mg magnesium No Notes: Memori a sulfate 4-10 WASTE: F/P l 16:43: - Sink; E [place] - Municipal Trash Bin Solu-MEDROL No Notes: Erwin benjamin 4-10 (Same l 16:43: as:Solu-MO [place] 00 DROL, A-Methapre d) MEDICATION WASTE Product Size: 1000 mg Product Wasted: _0__ mg magnesium No Notes: Memori a sulfate 4-10 WASTE: F/P l 16:43: - Sink; E [place] - Municipal Trash Bin Solu-MEDROL No Notes: Erwin benjamin 4-10 (Same l 16:43: as:Solu-MO [place] 00 DROL, A-Methapre d) MEDICATION WASTE Product Size: 1000 mg Product Wasted: _0__ mg magnesium No Notes: Memori a sulfate 4-10 WASTE: F/P l 16:43: - Sink; E [place] - Municipal Trash Bin Solu-MEDROL No Notes: Erwin benjamin 4-10 (Same l 16:43: as:Solu-MO [place] 00 DROL, A-Methapre d) MEDICATION WASTE Product Size: 1000 mg Product Wasted: _0__ mg magnesium No Notes: Memori a sulfate 4-10 WASTE: F/P l 16:43: - Sink; E [place] - Municipal Trash Bin Solu-MEDROL No Notes: Erwin benjamin 4-10 (Same l 16:43: as:Solu-MO [place] 00 DROL, A-Methapre d) MEDICATION WASTE Product Size: 1000 mg Product Wasted: _0__ mg magnesium No Notes: Memori a sulfate 4-10 WASTE: F/P l 16:43: - Sink; - [facility] [place] No Notes: Erwin benjamin 4-10 (Same l 16:43: as:Solu-MO [place] 00 DROL, A-Methapre d) MEDICATION WASTE Product Size: 1000 mg Product Wasted: _0__ mg magnesium No Notes: Memori a sulfate 4-10 WASTE: F/P l 16:43: - Sink; - [facility] [place] No Notes: Erwin benjamin 4-10 (Same l 16:43: as:Solu-MO [place] 00 DROL, A-Methapre d) MEDICATION WASTE Product Size: 1000 mg Product Wasted: _0__ mg magnesium No Notes: Memori a sulfate 4-10 WASTE: F/P l 16:43: - Sink; - [facility] [place] No Notes: Erwin benjamin 4-10 (Same l 16:43: as:Solu-MO [place] 00 DROL, A-Methapre d) MEDICATION WASTE Product Size: 1000 mg Product Wasted: _0__ mg magnesium No Notes: Memori a sulfate 4-10 WASTE: F/P l 16:43: - Sink; - [facility] amitriptyli No Notes: Erwin benjamin ne 4-10 [...] moria e - Route: l 18:44: IVPB, [place] 00 Q12H, Dosing Weight 127.727, kg, PRN Nausea & Vomiting, Start date: 10/21/21 13:44:00 CDT, Duration: 30 day, Stop date: 11/20/21 13:43:00 CDT promethazin 2022-0 No 6.25 mg, Me moria e - Route: l 18:44: IVPB, [place] 00 Q12H, Dosing Weight 127.727, kg, PRN [...] moria e - Route: l 18:44: IVPB, [place] 00 Q12H, Dosing Weight 127.727, kg, PRN Nausea & Vomiting, Start date: 10/21/21 13:44:00 CDT, Duration: 30 day, Stop date: 11/20/21 13:43:00 CDT promethazin 2022-0 No 6.25 mg, Me moria e - Route: l 18:44: IVPB, [place] 00 Q12H, Dosing Weight 127.727, kg, PRN Nausea & Vomiting, Start date: 10/21/21 13:44:00 CDT, Duration: 30 day, Stop date: 11/20/21 13:43:00 CDT promethazin 2022-0 No 6.25 mg, Me moria e 4-09 Route: l 18:44: IVPB, [place] 00 Q12H, Dosing Weight 127.727, kg, PRN [...] Memoria 4-09 (Same as: l 18:37: Benadryl) [place] 00 Benadryl No Notes: [facility] 4-09 (Same as: [...] (Same as: l 18:36: Dilaudid) [place] Dilaudid 0 No Notes: [facility] 4-09 (Same as: l 18:36: Dilaudid) [place] Dilaudid 0 No Notes: Memoria 4-09 (Same as: l 18:36: Dilaudid) [place] Dilaudid No Notes: [facility]oria 4-09 (Same as: l 18:36: Dilaudid) [place] Dilaudid 0 No Notes: [facility] 4-09 (Same as: l 18:36: Dilaudid) [place] Dilaudid 0 No Notes: Memoria 4-09 (Same as: l 18:36: Dilaudid) [place] Phenergan 0 No Notes: Memori a 4-09 (Same as: l 18:33: Phenergan) [place] 00 6.25 mg = 1/2 x 12.5 mg TAB Phenergan 2021-0 No Notes: Memori a 4-09 (Same as: l 18:33: Phenergan) [place] 6.25 mg = 1/2 x 12.5 mg TAB Phenergan 2021-0 No Notes: Memori a 4-09 (Same as: l 18:33: Phenergan) [place] 00 6.25 mg = 1/2 x 12.5 mg TAB Phenergan 2021-0 No Notes: Memori a 4-09 (Same as: l 18:33: Phenergan) [place] 00 6.25 mg = 1/2 x 12.5 mg TAB Phenergan 2021-0 No Notes: Memori a 4-09 (Same as: l 18:33: Phenergan) [place] 00 6.25 mg = 1/2 x 12.5 mg TAB Phenergan 2021-0 No Notes: Memori a 4-09 (Same as: l 18:33: Phenergan) [place] 00 6.25 mg = 1/2 x 12.5 mg TAB Phenergan 2021-0 No Notes: Memori a 4-09 (Same as: l 18:33: Phenergan) [place] 00 6.25 mg = 1/2 x 12.5 mg TAB Phenergan 2021-0 No Notes: Memori a 4-09 (Same as: l 18:33: Phenergan) [place] 6.25 mg = 1/2 x 12.5 mg [...] Memoria sulfate - (Zinc l 14:00: sulfate [place] 00 capsule) - 220 mg Zinc sulfate = 50 mg elemental zinc Same as Zinc Sulfate ascorbic No Notes: Memoria acid 4-09 (Same as: l 14:00: Vitamin C) [place] 00 celecoxib No Notes: [facility]ori a 4-09 NSAID. l 14:00: Please [place] 00 check indication . Not for seizure. [...] Memoria sulfate 4- (Zinc l 14:00: sulfate [place] 00 capsule) - 220 mg Zinc sulfate = 50 mg elemental zinc Same as Zinc Sulfate ascorbic No Notes: [facility]oria acid 4-09 (Same as: l 14:00: Vitamin C) [place] celecoxib No Notes: [facility] a 4-09 NSAID. l 14:00: Please [place] 00 check indication . Not for seizure. (Same As: CeleBREX) Lidoderm 5% No Notes: Erwin benjamin topical 4-09 Apply only l film 14:00: once for [place] (patch) 00 up to 12 hours in a 24-hour period (12 hours on and 12 hours off). (Same as: Aspercreme Lidocaine Patch) "Remove old patch before applicatio n of new patch" zinc No Notes: Memoria sulfate 4-09 (Zinc l 14:00: sulfate [place] 00 capsule) - 220 mg Zinc sulfate = 50 mg elemental zinc Same as Zinc Sulfate ascorbic No Notes: Memoria acid 4-09 (Same as: l 14:00: Vitamin C) [place] 00 celecoxib No Notes: Memori a 4-09 NSAID. l 14:00: Please [place] 00 check indication . Not for seizure. (Same As: CeleBREX) Lidoderm 5% No Notes: Erwin benjamin topical - Apply only l film 14:00: once for [place] (patch) 00 up to 12 hours in [...] Memori a 4-09 NSAID. l 14:00: Please [place] 00 check indication . Not for seizure. [...] Memori a 4-09 NSAID. l 14:00: Please [place] 00 check indication . Not for seizure. (Same As: CeleBREX) Lidoderm 5% No Notes: Erwin benjamin topical 4-09 Apply only l film 14:00: once for [place] (patch) 00 up to 12 hours in [...] Memori a 4-09 NSAID. l 14:00: Please [place] 00 check indication . Not for seizure. (Same As: CeleBREX) Lidoderm 5% No Notes: Erwin benjamin topical 4-09 Apply only l film 14:00: once for [place] (patch) 00 up to 12 hours in a 24-hour period (12 hours on and 12 hours off). (Same as: Aspercreme Lidocaine Patch) "Remove old patch before applicatio n of new patch" zinc No Notes: Memoria sulfate 4-09 (Zinc l 14:00: sulfate [place] 00 capsule) - 220 mg Zinc sulfate = 50 mg elemental zinc Same as Zinc Sulfate ascorbic No Notes: Memoria acid 4-09 (Same as: l 14:00: Vitamin C) [place] celecoxib No Notes: Memori a 4-09 NSAID. l 14:00: Please [place] 00 check indication . Not for seizure. (Same As: CeleBREX) Lidoderm 5% No Notes: Erwin benjamin topical 4-09 Apply only l film 14:00: once for [place] (patch) 00 up to 12 hours in a 24-hour period (12 hours on and 12 hours off). (Same as: Aspercreme Lidocaine Patch) "Remove old patch before applicatio n of new patch" zinc 2022-0 No Notes: Memoria sulfate 4-09 (Zinc l 14:00: sulfate [place] 00 capsule) - 220 mg Zinc sulfate = 50 mg elemental zinc Same as Zinc Sulfate cefepime + 2021-0 No Notes: Memor ia sterile 10-21 (Same As: l water 10 mL 12:00: Maxipime) [place] 00 MEDICATION WASTE Product Size: 1000 mg Product Wasted: _0__ mg cefepime + 2021-0 No Notes: Memor ia sterile - (Same As: l water 10 mL 12:00: Maxipime) [place] 00 MEDICATION WASTE Product Size: 1000 mg Product Wasted: _0__ mg cefepime + 2021-0 No Notes: Memor ia sterile 10-21 (Same As: l water 10 mL 12:00: Maxipime) [place] 00 MEDICATION WASTE Product Size: 1000 mg Product Wasted: _0__ mg cefepime + 2021-0 No Notes: Memor ia sterile 10-21 (Same As: l water 10 mL 12:00: Maxipime) [place] 00 MEDICATION WASTE Product Size: 1000 mg Product Wasted: _0__ mg cefepime + 2021-0 No Notes: Memor ia sterile 10-21 (Same As: l water 10 mL 12:00: Maxipime) [place] 00 MEDICATION WASTE Product Size: 1000 mg Product Wasted: _0__ mg cefepime + 2021-0 No Notes: Memor ia sterile - (Same As: l water 10 mL 12:00: Maxipime) [place] 00 MEDICATION WASTE Product Size: 1000 mg Product Wasted: _0__ mg cefepime + 2022-0 No Notes: Memor ia sterile - (Same As: l water 10 mL 12:00: Maxipime) [place] 00 MEDICATION WASTE Product Size: 1000 mg Product Wasted: _0__ mg cefepime + 2021-0 No Notes: Memor ia sterile - (Same As: l water 10 mL 12:00: Maxipime) [place] 00 MEDICATION WASTE Product Size: 1000 mg Product Wasted: _0__ mg hydromorpho 2021- No Notes: Erwin benjamin ne 4-09 (Same as: l 09:39: Dilaudid) [place] hydromorpho 2021-0 No Notes: Erwin benjamin ne 4-09 (Same as: l 09:39: Dilaudid) [place] hydromorpho 2021-0 No Notes: Erwin benjamin ne 4-09 (Same as: l 09:39: Dilaudid) [place] hydromorpho 2021-0 No Notes: Erwin benjamin ne 4-09 (Same as: l 09:39: Dilaudid) [place] hydromorpho 2021-0 No Notes: Erwin benjamin ne 4-09 (Same as: l 09:39: Dilaudid) [place] hydromorpho 2021-0 No Notes: Erwin benjamin ne 4-09 (Same as: l 09:39: Dilaudid) [place] hydromorpho 2021-0 No Notes: Erwin benjamin ne 4-09 (Same as: l 09:39: Dilaudid) [place] hydromorpho 2021-0 No Notes: Erwin benjamin ne 4-09 (Same as: l 09:39: Dilaudid) [place] methocarbam 2021-0 No Notes: Erwin benjamin ol 4-09 (Same l 05:00: as:Robaxin [place] 00 ) methocarbam 2021-0 No Notes: Erwin benjamin ol 4-09 (Same l 05:00: as:Robaxin [place] 00 ) methocarbam 2021-0 No Notes: Erwin benjamin ol 4-09 (Same l 05:00: as:Robaxin [place] 00 ) methocarbam 2021-0 No Notes: Erwin benjamin ol 4-09 (Same l 05:00: as:Robaxin [place] 00 ) methocarbam 2021-0 No Notes: Erwin benjamin ol 4-09 (Same l 05:00: as:Robaxin [place] 00 ) methocarbam 2021-0 No Notes: Erwin [...] Memoria 4-09 (Same as: l 02:00: Senokot) [place] 00 Saline No Notes: [facility] Flush 0.9% 4-09 (Same as: l 02:00: BD [place] 00 Posiflush) topiramate No Notes: Memor ia 4-09 (Same As: l 02:00: Topamax) [place] 00 "Do Not Crush" [facility] 3:Reproduc tive risk Hazardous Drug -- Refer to safe handling procedure PPE Matrix remove No Notes: Memoria patch 4-09 Remove l 02:00: patch 12 [place] 00 hours after applicatio n each day. docusate No Notes: Memoria 4-09 (Same as: l 02:00: Colace) [place] 00 (Do Not Crush) senna No Notes: [...] Memoria 4-09 (Same as: l 02:00: Colace) [place] 00 (Do Not Crush) senna No Notes: Memoria 4-09 (Same as: l 02:00: Senokot) [place] 00 Saline No Notes: [facility] Flush 0.9% 4-09 (Same as: l 02:00: BD [place] 00 Posiflush) topiramate No Notes: Memor ia 4-09 (Same As: l 02:00: Topamax) [place] 00 "Do Not Crush" [facility] 3:Reproduc tive risk Hazardous Drug -- Refer to safe handling procedure PPE Matrix remove No Notes: [facility]oria patch 4-09 Remove l 02:00: patch 12 [place] 00 hours after applicatio n each day. docusate No Notes: Memoria 4-09 (Same as: l 02:00: Colace) [place] 00 (Do Not Crush) senna No Notes: Memoria 4-09 (Same as: l 02:00: Senokot) [place] 00 Saline No Notes: [facility] Flush 0.9% 4-09 (Same as: l 02:00: BD [place] 00 Posiflush) topiramate No Notes: Memor ia 4-09 (Same As: l 02:00: Topamax) [place] 00 "Do Not Crush" [facility] 3:Reproduc tive risk Hazardous Drug -- Refer to safe handling procedure PPE Matrix remove No Notes: [facility]oria patch 4-09 Remove l 02:00: patch 12 [place] 00 hours after applicatio n each day. docusate No Notes: Memoria 4-09 (Same as: l 02:00: Colace) [place] 00 (Do Not Crush) senna No Notes: Memoria 4-09 (Same as: l 02:00: Senokot) [place] 00 Saline No Notes: [facility] Flush 0.9% 4-09 (Same as: l 02:00: BD [place] 00 Posiflush) topiramate No Notes: Memor ia 4-09 (Same As: l 02:00: Topamax) [place] 00 "Do Not Crush" [facility] 3:Reproduc tive risk Hazardous Drug -- Refer to safe handling procedure PPE Matrix remove No Notes: [facility]oria patch 4-09 Remove l 02:00: patch 12 [place] 00 hours after applicatio n each day. docusate No Notes: Memoria 4-09 (Same as: l 02:00: Colace) [place] 00 (Do Not Crush) senna No Notes: Memoria 4-09 (Same as: l 02:00: Senokot) [place] 00 Saline No Notes: [facility] Flush 0.9% 4-09 (Same as: l 02:00: BD [place] 00 Posiflush) topiramate No Notes: Memor ia 4-09 (Same As: l 02:00: Topamax) [place] 00 "Do Not Crush" [facility] [...] Memoria 4-09 (Same as: l 02:00: Senokot) [place] 00 Saline No Notes: [facility]oria Flush 0.9% 4-09 (Same as: l 02:00: BD [place] 00 Posiflush) topiramate No Notes: Memor ia 4-09 (Same As: l 02:00: Topamax) [place] 00 "Do Not Crush" [facility] 3:Reproduc tive risk Hazardous Drug -- Refer to safe handling procedure PPE Matrix remove No Notes: Memoria patch 4-09 Remove l 02:00: patch 12 [place] 00 hours after applicatio n each day. docusate No Notes: [facility]oria 4-09 (Same as: l 02:00: Colace) [place] 00 (Do Not Crush) senna No Notes: [facility]oria 4-09 (Same as: l 02:00: Senokot) [place] 00 Saline No Notes: [facility] Flush 0.9% 4-09 (Same as: l 02:00: BD [place] 00 Posiflush) topiramate No Notes: Memor ia 10-21 (Same As: l 02:00: Topamax) [place] 00 "Do Not Crush" [facility] 3:Reproduc tive risk Hazardous Drug -- Refer to safe handling procedure PPE Matrix remove No Notes: [facility]oria patch 10-21 Remove l 02:00: patch 12 [place] 00 hours after applicatio n each day. acetaminoph No Notes: Max [facility]oria en 10-21 acetaminop l 01:00: hen 4000 [place] 00 mg/day (4 gm/day). (Same as: Tylenol Extra Strength) acetaminoph No Notes: Max [facility]oria en 10-21 acetaminop l 01:00: hen 4000 [place] 00 mg/day (4 gm/day). (Same as: Tylenol Extra Strength) acetaminoph No Notes: Max [facility]oria en 10-21 acetaminop l 01:00: hen 4000 [place] 00 mg/day (4 gm/day). (Same as: Tylenol Extra Strength) acetaminoph No Notes: Max [facility] en 10-21 acetaminop l 01:00: hen 4000 [place] 00 mg/day (4 gm/day). (Same as: Tylenol Extra Strength) acetaminoph No Notes: Max [facility]oria en 10-21 acetaminop l 01:00: hen 4000 [place] 00 mg/day (4 gm/day). (Same as: Tylenol Extra Strength) acetaminoph No Notes: Max [facility]oria en 10-21 acetaminop l 01:00: hen 4000 [place] 00 mg/day (4 gm/day). (Same as: Tylenol Extra Strength) acetaminoph No Notes: Max [facility] en 10-21 acetaminop l 01:00: hen 4000 [place] 00 mg/day (4 gm/day). (Same as: Tylenol Extra Strength) acetaminoph No Notes: Max [facility]oria en 10-21 [...] 00 acetaminop oral tablet hen. (Same as: [place] 325/10) oxyCODONE 0 No Notes: Memori a immediate 4-09 (Same as: l release 00:09: Roxicodone Herm philip 00 ) acetaminoph No Notes: Do M emoria en-hydrocod 4-09 not exceed l one 325 00:09: 4gm/day of Herm philip mg-10 mg 00 acetaminop oral tablet hen. (Same as: [place] 325/10) oxyCODONE No Notes: Memori a immediate 4-09 (Same as: l release 00:09: Roxicodone Herm philip 00 ) acetaminoph No Notes: Do M emoria en-hydrocod 4-09 not exceed l one 325 00:09: 4gm/day of Herm philip mg-10 mg 00 acetaminop oral tablet hen. (Same as: [place] 325/10) oxyCODONE 0 No Notes: Memori a immediate 4-09 (Same as: l release 00:09: Roxicodone Herm philip 00 ) acetaminoph No Notes: Do M emoria en-hydrocod 4-09 not exceed l one 325 00:09: 4gm/day of Herm philip mg-10 mg 00 acetaminop oral tablet hen. (Same as: [place] 325/10) oxyCODONE 0 No Notes: Memori a immediate 4-09 (Same as: l release 00:09: Roxicodone Herm philip 00 ) acetaminoph No Notes: Do M emoria en-hydrocod 4-09 not exceed l one 325 00:09: 4gm/day of Herm philip mg-10 mg 00 acetaminop oral tablet hen. (Same as: [place] 325/10) oxyCODONE 0 No Notes: Memori a immediate 4-09 (Same as: l release 00:09: Roxicodone Herm philip 00 ) acetaminoph No Notes: Do M emoria en-hydrocod 4-09 not exceed l one 325 00:09: 4gm/day of Herm philip mg-10 mg 00 acetaminop oral tablet hen. (Same as: [place] 325/10) oxyCODONE No Notes: Memori a immediate 4-09 (Same as: l release 00:09: Roxicodone Herm philip 00 ) acetaminoph No Notes: Do M emoria en-hydrocod 4-09 not exceed l one 325 00:09: 4gm/day of Herm philip mg-10 mg 00 acetaminop oral tablet hen. (Same as: [place] 325/10) oxyCODONE No Notes: Memori a immediate 4-09 (Same as: l release 00:09: Roxicodone Herm philip 00 ) acetaminoph No Notes: Do M emoria en-hydrocod 4-09 not exceed l one 325 00:09: 4gm/day of Herm philip mg-10 mg 00 acetaminop oral tablet hen. (Same as: [place] 325/10) LORazepam No Notes: Memori a 4-09 (Same as: l 00:06: Ativan) [place] oxyCODONE No Notes: Memori a immediate 4-09 (Same as: l release 00:06: Roxicodone [place] philip 00 ) LORazepam No Notes: Memori a 4-09 (Same as: l 00:06: Ativan) [place] oxyCODONE No Notes: Memori a immediate 4-09 (Same as: l release 00:06: Roxicodone Herm philip 00 ) LORazepam No Notes: Memori a 4-09 (Same as: l 00:06: Ativan) [place] oxyCODONE No Notes: Memori a immediate 4-09 [...] a 4-09 (Same as: l 00:06: Ativan) [place] oxyCODONE No Notes: Memori a immediate 4-09 (Same as: l release 00:06: Roxicodone Herm philip 00 ) LORazepam No Notes: Memori a 4-09 (Same as: l 00:06: Ativan) [place] oxyCODONE No Notes: Memori a immediate 4-09 (Same as: l release 00:06: Roxicodone Herm phil[place] 00 ) LORazepam No Notes: Memori a 4-09 (Same as: l 00:06: Ativan) [place] oxyCODONE No Notes: Memori a immediate 4-09 (Same as: l release 00:06: Roxicodone Herm philip ) Sodium No 1,000 mL, Memori a Chloride 10-20 Rate: 75 l 0.9% IV 23:43: ml/hr, [place] 1,000 mL 00 Infuse over: 13.3 hr, Route: IV, Dosing Weight 127.727 kg, Total Volume: 1,000, Start date: 10/20/21 18:43:00 CDT, Duration: 30 day, Stop date: 11/19/21 18:42:00 CDT, BSA: 2.37 m2, 0 acetaminoph No Notes: Do M emoria en 10-20 not exceed l 23:43: 4 gm/day. [place] 00 (Same as: Tylenol) acetaminoph No Notes: Erwin benjamin en-hydrocod 10-20 (Same as: l one 325 23:43: [place] mg-5 mg 00 325/5) Do oral tablet not exceed 4gm/day of acetaminop hen. acetaminoph No Notes: Do M emoria en-hydrocod 4-08 not exceed l one 325 23:43: 4gm/day of Herm philip mg-10 mg 00 acetaminop oral tablet hen. (Same as: [place] 325/10) bisacodyl No Notes: Memori a 4-08 (Same As: l 23:43: Dulcolax, [place] Bisco-Lax) hydrALAZINE No Notes: Erwin benjamin 4-08 [...] 4-08 (Same as: l one 325 23:43: [place] mg-5 mg 00 325/5) Do oral tablet not exceed 4gm/day of acetaminop hen. acetaminoph No Notes: Do M emoria en-hydrocod 4-08 not exceed l one 325 23:43: 4gm/day of Herm philip mg-10 mg 00 acetaminop oral tablet hen. (Same as: [place] 325/10) bisacodyl No Notes: Memori a 4-08 [...] (Same as: Tylenol) acetaminoph No Notes: Erwin benjaimn en-hydrocod 4-08 (Same as: l one 325 23:43: [place] mg-5 mg 00 325/5) Do oral tablet not exceed 4gm/day of acetaminop hen. acetaminoph No Notes: Do M emoria en-hydrocod 4-08 not exceed l one 325 23:43: 4gm/day of Herm philip mg-10 mg 00 acetaminop oral tablet hen. (Same as: [place] 325/10) bisacodyl No Notes: Memori a 4-08 (Same As: l 23:43: Dulcolax, [place] Bisco-Lax) hydrALAZINE No Notes: Erwin benjamin 4-08 [...] 4-08 not exceed l 23:43: 4 gm/day. [place] 00 (Same as: Tylenol) acetaminoph No Notes: Erwin benjamin en-hydrocod 4-08 (Same as: l one 325 23:43: [place] mg-5 mg 00 325/5) Do oral tablet not exceed 4gm/day of acetaminop hen. acetaminoph No Notes: Do M emoria en-hydrocod 4-08 not exceed l one 325 23:43: 4gm/day of Herm philip mg-10 mg 00 acetaminop oral tablet hen. (Same as: [place] 325/10) bisacodyl No Notes: Memori a 4-08 (Same As: l 23:43: Dulcolax, [place] 00 Bisco-Lax) hydrALAZINE No Notes: Erwin benjamin [...] Rate: 75 l 0.9% IV 23:43: ml/hr, [place] 1,000 mL 00 Infuse over: 13.3 hr, Route: IV, Dosing Weight 127.727 kg, Total Volume: 1,000, Start date: 10/20/21 18:43:00 CDT, Duration: 30 day, Stop date: 11/19/21 18:42:00 CDT, BSA: 2.37 m2, 0 acetaminoph No Notes: Do M emoria en 4-08 not exceed l 23:43: 4 gm/day. [place] (Same as: Tylenol) acetaminoph No Notes: Erwin benjamin en-hydrocod 4-08 (Same as: l one 325 23:43: [place] mg-5 mg 00 325/5) Do oral tablet not exceed 4gm/day of acetaminop hen. acetaminoph No Notes: Do M emoria en-hydrocod 4-08 not exceed l one 325 23:43: 4gm/day of Herm philip mg-10 mg 00 acetaminop oral tablet hen. (Same as: [place] 325/10) bisacodyl No Notes: Memori a 4-08 [...] 4-08 (Same as: l one 325 23:43: [place] Jason mg-5 mg 00 325/5) Do oral tablet not exceed 4gm/day of acetaminop hen. acetaminoph No Notes: Do M emoria en-hydrocod 4-08 not exceed l one 325 23:43: 4gm/day of Herm phiilp mg-10 mg 00 acetaminop oral tablet hen. (Same as: [place] 325/10) bisacodyl No Notes: Memori a 4-08 (Same As: l 23:43: Dulcolax, [place] 00 Bisco-Lax) hydrALAZINE No Notes: Erwin benjamin [...] Rate: 75 l 0.9% IV 23:43: ml/hr, [place] 1,000 mL 00 Infuse over: 13.3 hr, [...] 4-08 (Same as: l one 325 23:43: [place] mg-5 mg 00 325/5) Do oral tablet not exceed 4gm/day of acetaminop hen. acetaminoph No Notes: Do M emoria en-hydrocod 4-08 not exceed l one 325 23:43: 4gm/day of Herm philip mg-10 mg 00 acetaminop oral tablet hen. (Same as: [place] 325/10) bisacodyl No Notes: Memori a 4-08 (Same As: l 23:43: Dulcolax, [place] 00 Bisco-Lax) hydrALAZINE No Notes: Erwin benjamin [...] 4-08 (Same as: l one 325 23:43: [place] mg-5 mg 00 325/5) Do oral tablet not exceed 4gm/day of acetaminop hen. acetaminoph No Notes: Do M emoria en-hydrocod 4-08 not exceed l one 325 23:43: 4gm/day of Herm philip mg-10 mg 00 acetaminop oral tablet hen. (Same as: [place] 325/10) bisacodyl No Notes: Memori a 4-08 (Same As: l 23:43: Dulcolax, [place] Bisco-Lax) hydrALAZINE No Notes: Erwin benjamin 4-08 (Same as: l 23:43: Apresoline ) Push over 5 minutes labetalol No 10 mg, 2 Erwin benjamin 4-08 mL, Route: l 23:43: IVP, Drug form: INJ, Q15Min, Dosing Weight 127.727, kg, Start date: 10/20/21 18:43:00 CDT, Duration: 3 doses or times, Stop date: 10/20/21 19:13:00 CDT, 0 Saline 2021-0 No Notes: Memoria Flush 0.9% 4-08 (Same as: l 23:43: BD Posiflush) NaCl 0.9% 2021- No 1000mL at 999 Uni vers (NS) bolus 10-16 mL/hr, ity of infusion 05:00: 05:59 1,000 mL, Tim as 1,000 mL 00 :00 IV Medical Piggyback, Branch ONCE, 1 dose, On Sat10/16/21 at 0000, STAT diphenhydrA 0 2021- No 25mg 25 mg, Uni vers MINE 10-16 Slow IV ity of (BENADRYL) 05:00: 04:47 Push, [place] injection 00 :00 ONCE, 1 Medical 25 mg dose, On Branch Sat10/16/21 at 0000, STAT haloperidol 2021-0 2021- No 2.5mg 2.5 mg, U nivers lactate 10-16 Intravenou ity o f (HALDOL) 05:00: 04:47 s, ONCE, 1 [place] injection 00 :00 dose, On Medica l 2.5 mg Sat10/16/21 Branch at 0000, STAT topiramate Yes 25 mg = 1 Me moria 25 mg oral 3-29 cap, PO, l capsule 13:44: Q12H, # 60 Herm philip 00 cap, 0 Refill(s), Pharmacy: [id number], 149.86, cm, 10/06/21 1:18:00 CDT, Height, 127.727, kg, 10/06/21 1:18:00 CDT, Weight topiramate Yes 25 mg = 1 Me moria 25 mg oral 3-29 cap, PO, l capsule 13:44: Q12H, # 60 Herm philip 00 cap, 0 Refill(s), Pharmacy: [id number], 149.86, cm, 10/06/21 1:18:00 CDT, Height, 127.727, kg, 10/06/21 1:18:00 CDT, Weight topiramate 2022-0 Yes 25 mg = 1 Me moria 25 mg oral 3-29 cap, PO, l capsule 13:44: Q12H, # 60 Herm philip 00 cap, 0 Refill(s), Pharmacy: [facility] #[id number], 149.86, cm, 10/06/21 1:18:00 CDT, Height, 127.727, kg, 10/06/21 1:18:00 CDT, Weight topiramate 2-0 Yes 25 mg = 1 Me moria 25 mg oral 3-29 cap, PO, l capsule 13:44: Q12H, # 60 Herm philip 00 cap, 0 Refill(s), Pharmacy: [facility] #[id number], 149.86, cm, 10/06/21 1:18:00 CDT, Height, 127.727, kg, 10/06/21 1:18:00 CDT, Weight topiramate 2-0 Yes 25 mg = 1 Me moria 25 mg oral 3-29 cap, PO, l capsule 13:44: Q12H, # 60 Herm philip 00 cap, 0 Refill(s), Pharmacy: [facility] #[id number], 149.86, cm, 10/06/21 1:18:00 CDT, Height, 127.727, kg, 10/06/21 1:18:00 CDT, Weight topiramate 2-0 Yes 25 mg = 1 Me moria 25 mg oral 3-29 cap, PO, l capsule 13:44: Q12H, # 60 Herm philip 00 cap, 0 Refill(s), Pharmacy: [id number], 149.86, cm, 10/06/21 1:18:00 CDT, Height, 127.727, kg, 10/06/21 1:18:00 CDT, Weight topiramate 2022-0 Yes 25 mg = 1 Me moria 25 mg oral 3-29 cap, PO, l capsule 13:44: Q12H, # 60 Herm philip 00 cap, 0 Refill(s), Pharmacy: [id number], 149.86, cm, 10/06/21 1:18:00 CDT, Height, 127.727, kg, 10/06/21 1:18:00 CDT, Weight topiramate Yes 25 mg = 1 Me moria 25 mg oral 3-29 cap, PO, l capsule 13:44: Q12H, # 60 Herm philip 00 cap, 0 Refill(s), Pharmacy: [id number], 149.86, cm, 10/06/21 1:18:00 CDT, Height, 127.727, kg, 10/06/21 1:18:00 CDT, Weight topiramate No Notes: Memor ia 3-28 Hazardous l 22:05: Drug Group [place] 00 3:Reproduc tive risk Hazardous Drug -- [...] ia 3-28 Hazardous l 22:05: Drug Group [place] 00 3:Reproduc tive risk Hazardous Drug -- [...] ia 3-28 Hazardous l 22:05: Drug Group [place] 00 3:Reproduc tive risk Hazardous Drug -- Refer to safe handling procedure PPE Matrix Sprinkle formulatio n. (Same As: Topamax) topiramate No Notes: Memor ia 3-28 Hazardous l 22:05: Drug Group [place] 00 3:Reproduc tive risk Hazardous Drug -- [...] packet 3-28 (Same as: l 21:30: Edwin [place] 00 Unflavored ) Administer ing EDWIN orally: [...] packet 3-28 (Same as: l 21:30: Edwin [place] 00 Unflavored ) Administer ing EDWIN orally: [...] packet 3-28 (Same as: l 21:30: Edwin [place] 00 Unflavored ) Administer ing EDWIN orally: Mix into 8-10 fl oz of room temperatur e juice, soda, or water. Also mixes well with warm beverages, like coffee or tea. Can be mixed with applesauce . Thoroughly stir for 30-60 seconds or until completely dissolved Edwin 2021-0 No Notes: Memoria packet 3-28 (Same as: l 21:30: Edwin [place] 00 Unflavored ) Administer ing EDWIN orally: Mix into 8-10 fl oz of room temperatur e juice, soda, or water. Also mixes well with warm beverages, like coffee or tea. Can be mixed with applesauce . Thoroughly stir for 30-60 seconds or until completely dissolved Lovenox 2021-0 No Notes: Memoria 3-27 (Same as: l 16:00: Lovenox) [place] 00 Lovenox 2021-0 No Notes: Memoria 3-27 (Same as: l 16:00: Lovenox) [place] 00 Lovenox 2021-0 No Notes: Memoria 3-27 (Same as: l 16:00: Lovenox) [place] 00 Lovenox 2021-0 No Notes: Memoria 3-27 (Same as: l 16:00: Lovenox) [place] 00 Lovenox 2021-0 No Notes: Memoria 3-27 (Same as: l 16:00: Lovenox) [place] 00 Lovenox No Notes: Memoria 3-27 (Same as: l 16:00: Lovenox) Lovenox No Notes: Memoria 3-27 (Same as: l 16:00: Lovenox) Lovenox No Notes: Memoria 3-27 (Same as: l 16:00: Lovenox) Magnesium No Notes: Memori a Sulfate 3-27 [...] WASTE: F/P l 15:54: - Sink; - [facility] Trash Bin methylPREDN No Notes: [...] Memoria 3-27 (Same as: l 13:28: Dilaudid) [place] 00 Dilaudid No Notes: Memoria 3-27 (Same as: l 13:28: Dilaudid) [place] 00 Dilaudid No Notes: Memoria 3-27 (Same as: l 13:28: Dilaudid) [place] 00 Dilaudid No Notes: Memoria 3-27 (Same as: l 13:28: Dilaudid) [place] 00 Dilaudid No Notes: Memoria 3-27 (Same as: l 13:28: Dilaudid) [place] 00 remove No Notes: Memoria patch 3-27 Remove l 02:00: patch 12 [place] 00 hours after applicatio n each day. remove No Notes: Memoria patch 3-27 Remove l 02:00: patch 12 [place] 00 hours after applicatio n each day. remove No Notes: Memoria patch 3-27 Remove l 02:00: patch 12 [place] 00 hours after applicatio n each day. remove No Notes: Memoria patch 3-27 Remove l 02:00: patch 12 [place] 00 hours after applicatio n each day. remove No Notes: Memoria patch 3-27 Remove l 02:00: patch 12 [place] 00 hours after applicatio n each day. [...] Memoria 3-26 (Same as: l 21:58: Lyrica) [place] 00 Naproxen No Notes: Memoria 3-26 (Same as: l 21:58: Naprosyn) [place] 00 Take with food. Lyrica 0 No Notes: Memoria 3-26 (Same as: l 21:58: Lyrica) [place] 00 Naproxen 0 No Notes: Memoria 3-26 (Same as: l 21:58: Naprosyn) [place] 00 Take with food. Lyrica 0 No Notes: Memoria 3-26 (Same as: l 21:58: Lyrica) [place] 00 Naproxen 0 No Notes: Memoria 3-26 (Same as: l 21:58: Naprosyn) [place] 00 Take with food. Lyrica 0 No Notes: Memoria 3-26 (Same as: l 21:58: Lyrica) [place] 00 Naproxen No Notes: Memoria 3-26 (Same as: l 21:58: Naprosyn) [place] 00 Take with food. Lyrica No Notes: Memoria 3-26 (Same as: l 21:58: Lyrica) [place] 00 Naproxen No Notes: Memoria 3-26 (Same as: l 21:58: Naprosyn) [place] 00 Take with food. Lyrica No Notes: Memoria 3-26 (Same as: l 21:58: Lyrica) [place] 00 Naproxen No Notes: Memoria 3-26 (Same as: l 21:58: Naprosyn) [place] 00 Take with food. Lyrica No Notes: Memoria 3-26 (Same as: l 21:58: Lyrica) [place] 00 Naproxen 0 No Notes: Memoria 3-26 (Same as: l 21:58: Naprosyn) [place] 00 Take with food. Lyrica 0 No Notes: Memoria 3-26 (Same as: l 21:58: Lyrica) [place] 00 Naproxen 0 No Notes: Memoria 3-26 (Same as: l 21:58: Naprosyn) [place] 00 Take with food. Ascorbic No Notes: [...] Memoria Sulfate 3-26 (Zinc l 14:00: sulfate [place] 00 capsule) - 220 mg Zinc sulfate [...] 3-26 (Same as: l 14:00: Vitamin C) [place] Zinc No Notes: Memoria Sulfate 3-26 (Zinc [...] Memoria Sulfate 3-26 (Zinc l 14:00: sulfate [place] 00 capsule) - 220 mg Zinc sulfate [...] Memoria Sulfate 3-26 (Zinc l 14:00: sulfate [place] 00 capsule) - 220 mg Zinc sulfate [...] Memoria Sulfate 3-26 (Zinc l 14:00: sulfate [place] 00 capsule) - 220 mg Zinc sulfate [...] Notes: Memoria 3-26 NSAID. l 03:15: Please [place] 00 check indication . Not for seizure. (Same As: CeleBREX) Robaxin No Notes: Memoria 3-26 (Same l 03:15: as:Robaxin [place] 00 ) gabapentin No Notes: Memor ia 3-26 (Same as: l 03:15: Neurontin) [place] 00 Tramadol No Notes: Not Mem oria 3-26 to exceed l 03:15: 400mg/day. [place] 00 (Same As: Ultram) Celebrex No Notes: Memoria 3-26 NSAID. l 03:15: Please [place] 00 check indication . Not for seizure. (Same As: CeleBREX) Robaxin No Notes: Memoria 3-26 (Same l 03:15: as:Robaxin [place] 00 ) gabapentin No Notes: Memor ia 3-26 (Same as: l 03:15: Neurontin) [place] 00 Tramadol 0 No Notes: Not Mem oria 3-26 to exceed l 03:15: 400mg/day. [place] 00 (Same As: Ultram) Celebrex No Notes: Memoria 3-26 NSAID. l 03:15: Please [place] 00 check indication . Not for seizure. (Same As: CeleBREX) Robaxin 0 No Notes: Memoria 3-26 (Same l 03:15: as:Robaxin [place] 00 ) gabapentin 0 No Notes: Memor ia 3-26 (Same as: l 03:15: Neurontin) [place] 00 Tramadol 0 No Notes: Not Mem oria 3-26 to exceed l 03:15: 400mg/day. [place] 00 (Same As: Ultram) Celebrex 0 No Notes: Memoria 3-26 NSAID. l 03:15: Please [place] 00 check indication . Not for seizure. [...] Notes: Memoria 3-26 NSAID. l 03:15: Please [place] 00 check indication . Not for seizure. (Same As: CeleBREX) Robaxin 0 No Notes: Memoria 3-26 (Same l 03:15: as:Robaxin [place] 00 ) gabapentin 0 No Notes: Memor ia 3-26 (Same as: l 03:15: Neurontin) [place] 00 Tramadol 0 No Notes: Not Mem [...] Notes: Memoria 3-26 NSAID. l 03:15: Please [place] 00 check indication . Not for seizure. (Same As: CeleBREX) Robaxin 0 No Notes: Memoria 3-26 (Same l 03:15: as:Robaxin [place] 00 ) gabapentin 0 No Notes: Memor ia 3-26 (Same as: l 03:15: Neurontin) [place] 00 Tramadol 2021-0 No Notes: Not Mem oria 3-26 to exceed l 03:15: 400mg/day. [place] 00 (Same As: Ultram) Celebrex No Notes: Memoria - NSAID. l 03:15: Please check indication . Not for seizure. (Same As: CeleBREX) Robaxin No Notes: Memoria 3- (Same l 03:15: as:Robaxin ) gabapentin No Notes: Memor ia 10-07 (Same as: l 03:15: Neurontin) [place] 00 Tramadol No Notes: Not Mem oria 10-07 to exceed l 03:15: 400mg/day. [place] 00 (Same As: Ultram) Dexamethaso No Notes: [...] Wasted: ___ mg Dilaudid No Notes: Memoria 3 Same as l 02:58: Dilaudid [place] 00 Dilaudid No Notes: Memoria 3 Same as l 02:58: Dilaudid [place] 00 Dilaudid No Notes: Memoria 3 Same as l 02:58: Dilaudid [place] 00 Dilaudid No Notes: Memoria 3 Same as l 02:58: Dilaudid [place] 00 Dilaudid No Notes: Memoria 3 Same as l 02:58: Dilaudid [place] 00 Dilaudid No Notes: Memoria 10-07 Same as l 02:58: Dilaudid [place] 00 Dilaudid No Notes: Memoria 3 Same as l 02:58: Dilaudid [place] 00 Dilaudid No Notes: Memoria 3 Same as l 02:58: Dilaudid [place] 00 Acetaminoph No Notes: Max Memoria en 3-25 acetaminop l 22:38: hen = [place] 00 4000mg/day (4 gm/day). (Same as: Tylenol) Acetaminoph No Notes: Max Memoria en 3-25 acetaminop l 22:38: hen = [place] 00 4000mg/day (4 gm/day). (Same as: Tylenol) Acetaminoph No Notes: Max Memoria en 3-25 acetaminop l 22:38: hen = [place] 00 4000mg/day (4 gm/day). (Same as: Tylenol) Acetaminoph 0 No Notes: Max Memoria en 3-25 acetaminop l 22:38: hen = [place] 00 4000mg/day (4 gm/day). (Same as: Tylenol) Acetaminoph No Notes: Max Memoria en 3-25 acetaminop l 22:38: hen = [place] 00 4000mg/day (4 gm/day). (Same as: Tylenol) Acetaminoph 2022-0 No Notes: Max Memoria en 3-25 acetaminop l 22:38: hen = [place] 00 4000mg/day (4 gm/day). (Same as: Tylenol) Acetaminoph No Notes: Max Memoria en 3-25 acetaminop l 22:38: hen = [place] 00 4000mg/day (4 gm/day). (Same as: Tylenol) Acetaminoph No Notes: Max Memoria en 3-25 acetaminop l 22:38: hen = [place] 00 4000mg/day (4 gm/day). (Same as: Tylenol) Isolyte S No Notes: Memori a PH-7.4 3-25 (Same as: l (Bolus) IV 22:37: Isolyte S [place] 00 PH7.4, Normosol-R PH 7.4, Plasma-Lyt e A ) Magnesium No Notes: Memori a Sulfate 3-25 WASTE: F/P l 22:37: - Sink; E [place] - Municipal Trash Bin Isolyte S No Notes: Memori a PH-7.4 3-25 (Same as: l (Bolus) IV 22:37: Isolyte S [place] 00 PH7.4, Normosol-R PH 7.4, Plasma-Lyt e A ) Magnesium No Notes: Memori a Sulfate 3-25 WASTE: F/P l 22:37: - Sink; E [place] - Municipal Trash Bin Isolyte S No Notes: Memori a PH-7.4 3-25 (Same as: l (Bolus) IV 22:37: Isolyte S [place] 00 PH7.4, Normosol-R PH 7.4, Plasma-Lyt e A ) Magnesium No Notes: Memori a Sulfate 3-25 WASTE: F/P l 22:37: - Sink; E [place] - Municipal Trash Bin Isolyte S No Notes: Memori a PH-7.4 3-25 (Same as: l (Bolus) IV 22:37: Isolyte S [place] 00 PH7.4, Normosol-R PH 7.4, Plasma-Lyt e A ) Magnesium No Notes: Memori a Sulfate 3-25 WASTE: F/P l 22:37: - Sink; E [place] - Municipal Trash Bin Isolyte S No Notes: Memori a PH-7.4 3-25 (Same as: l (Bolus) IV 22:37: Isolyte S [place] 00 PH7.4, Normosol-R PH 7.4, Plasma-Lyt e A ) Magnesium No Notes: Memori a Sulfate 3-25 WASTE: F/P l 22:37: - Sink; E [place] - Municipal Trash Bin Isolyte S No [...] WASTE: F/P l 22:37: - Sink; E [place] 00 - Municipal Trash Bin Isolyte S No Notes: Memori a PH-7.4 3-25 (Same as: l (Bolus) IV 22:37: Isolyte S [place] 00 PH7.4, Normosol-R PH 7.4, Plasma-Lyt e A ) Magnesium No Notes: Memori a Sulfate 3-25 WASTE: F/P l 22:37: - Sink; [place] 00 - Municipal Trash Bin Iohexol No 100 mL, Memoria 3-25 Route: l 20:04: IVP, Drug Form: SOLN, Dosing Weight 127.727, kg, ONCALL, STAT, Start date: 10/06/21 15:04:00 CDT, Duration: 1 doses or times, Dose = 2.2ml/kg, Max dose = 100ml -- "To be infused by Radiology Staff ONLY" Iohexol 2-0 No 100 mL, Memoria 3-25 Route: l 20:04: IVP, Drug [place] 00 Form: SOLN, Dosing Weight 127.727, kg, ONCALL, STAT, Start date: 10/06/21 15:04:00 CDT, Duration: 1 doses or times, Dose = 2.2ml/kg, Max dose = 100ml -- "To be infused by Radiology Staff ONLY" Iohexol 2-0 No 100 mL, Memoria 3-25 Route: l 20:04: IVP, Drug [place] 00 Form: SOLN, Dosing Weight 127.727, kg, ONCALL, STAT, Start date: 10/06/21 15:04:00 CDT, Duration: 1 doses or times, Dose = 2.2ml/kg, Max dose = 100ml -- "To be infused by Radiology Staff ONLY" Iohexol 2-0 No 100 mL, Memoria 3-25 Route: l 20:04: IVP, Drug [place] 00 Form: SOLN, Dosing Weight 127.727, kg, ONCALL, STAT, Start date: 10/06/21 15:04:00 CDT, Duration: 1 doses or times, Dose = 2.2ml/kg, Max dose = 100ml -- "To be infused by Radiology Staff ONLY" Iohexol 2-0 No 100 mL, Memoria 3-25 Route: l 20:04: IVP, Drug [place] 00 Form: SOLN, Dosing Weight 127.727, kg, ONCALL, STAT, Start date: 10/06/21 15:04:00 CDT, Duration: 1 doses or times, Dose = 2.2ml/kg, Max dose = 100ml -- "To be infused by Radiology Staff ONLY" Iohexol 2022-0 No 100 mL, Memoria 3-25 Route: l [...] Memoria 3-25 (Same as: l 14:00: Colace) [place] (Do Not Crush) sennosides, No Notes: Erwin benjamin CARE HOME 3-25 (Same as: l 14:00: Senokot) [place] 00 Saline No Notes: Memoria Flush 0.9% 3-25 preservati l 14:00: ve free. [place] Docusate No Notes: Memoria 3-25 (Same as: l 14:00: Colace) [place] 00 (Do Not Crush) sennosides, No Notes: Erwin benjamin CARE HOME 3-25 (Same as: l 14:00: Senokot) [place] 00 Saline No Notes: Memoria Flush 0.9% 3-25 preservati l 14:00: ve free. [place] Docusate No Notes: Memoria 3-25 (Same as: l 14:00: Colace) [place] 00 (Do Not Crush) sennosides, No Notes: Erwin benjamin CARE HOME 3-25 (Same as: l 14:00: Senokot) [place] 00 Saline No Notes: Memoria Flush 0.9% 3-25 preservati l 14:00: ve free. [place] 00 Docusate No Notes: Memoria 3-25 (Same as: l 14:00: Colace) [place] 00 (Do Not Crush) sennosides, No Notes: Erwin benjamin CARE HOME 3-25 (Same as: l 14:00: Senokot) [place] Saline No Notes: Memoria Flush 0.9% 3-25 preservati l 14:00: ve free. [place] 00 Docusate No Notes: Memoria 3-25 (Same as: l 14:00: Colace) [place] (Do Not Crush) sennosides, No Notes: Erwin benjamin CARE HOME 3-25 (Same as: l 14:00: Senokot) [place] 00 Saline No Notes: Memoria Flush 0.9% 3-25 preservati l 14:00: ve free. [place] 00 Docusate No Notes: Memoria 3-25 (Same as: l 14:00: Colace) [place] (Do Not Crush) sennosides, No Notes: Erwin benjamin CARE HOME 3-25 (Same as: l 14:00: Senokot) [place] 00 Saline No Notes: Memoria Flush 0.9% 3-25 preservati l 14:00: ve free. [place] 00 Docusate No Notes: Memoria 3-25 (Same as: l 14:00: Colace) [place] 00 (Do Not Crush) sennosides, No Notes: Erwin benjamin CARE HOME 3-25 (Same as: l 14:00: Senokot) [place] Saline No Notes: Memoria Flush 0.9% 3-25 preservati l 14:00: ve free. [place] 00 Docusate No Notes: Memoria 3-25 (Same as: l 14:00: Colace) [place] (Do Not Crush) sennosides, No Notes: Erwin benjamin CARE HOME 3-25 (Same as: l 14:00: Senokot) Saline [...] ol 3-25 (Same l 06:05: as:Robaxin [place] ) Lorazepam No Notes: Memori a 3-25 (Same as: l 06:05: Ativan) [place] Methocarbam No Notes: Erwin benjamin ol 3-25 (Same l 06:05: as:Robaxin [place] ) Lorazepam No Notes: Memori a 3-25 (Same as: l 06:05: Ativan) [place] Methocarbam No Notes: Erwin benjamin ol 3-25 (Same l 06:05: as:Robaxin [place] ) Lorazepam No Notes: Memori a 3-25 (Same as: l 06:05: Ativan) [place] Methocarbam No Notes: Erwin benjamin ol 3-25 (Same l 06:05: as:Robaxin [place] ) Lorazepam No Notes: Memori a 3-25 (Same as: l 06:05: Ativan) [place] Methocarbam No Notes: Erwin benjamin ol 3-25 (Same l 06:05: as:Robaxin [place] ) Lorazepam No Notes: Memori a 3-25 (Same as: l 06:05: Ativan) [place] Methocarbam No Notes: Erwin benjamin ol 3-25 (Same l 06:05: as:Robaxin ) Lorazepam No Notes: Memori a 3-25 (Same as: l 06:05: Ativan) [place] Methocarbam No Notes: Erwin benjamin ol 3-25 [...] Memori a 3-25 years, l 06:03: Pediatric [place] 00 Dosing Acetaminoph No Notes: Do M emoria en 325 MG / -25 not exceed l Hydrocodone 06:03: 4gm/day of [place] Bitartrate 00 acetaminop 10 MG Oral hen. (Same Tablet as: [place] [[place] 325/10) 10/325] Dilaudid No Notes: Memoria 3-25 Same as l 06:03: Dilaudid [place] 00 Benadryl No Notes: Memoria 3-25 (Same as: l 06:03: Benadryl) [place] 00 phenol No Notes: Memoria 3-25 Chlorasept l 06:03: ic [place] Jason 00 (Same as: Chlorasept ic, Sore Throat [place]) WASTE: F/P - Black; E - Municipal [...] 3-25 not exceed l 06:03: 4 gm/day. [place] 00 (Same as: Tylenol) Reglan No Notes: Memoria 3-25 (Same as: l 06:03: Reglan) [place] 00 Phenergan No Notes: Do Mem oria 3-25 not give l 06:03: IV push. [place] 00 (Same as: Phenergan) Saline No Notes: [...] 10 MG Oral hen. (Same Tablet as: [place] [[place] 325/10) 10/325] Dilaudid No Notes: Memoria 3-25 Same as l 06:03: Dilaudid Benadryl No Notes: [facility]oria 3-25 (Same as: l 06:03: Benadryl) phenol No Notes: Memoria 3-25 Chlorasept l 06:03: ic [place] (Same as: Chlorasept ic, Sore Throat [place]) WASTE: F/P - Black; E - Municipal [...] Rate: 50 l 0.9% IV 06:03: ml/hr, [place] 1,000 mL 00 Infuse over: 20 hr, [...] 10 MG Oral hen. (Same Tablet as: [place] [[place] 325/10) 10/325] Dilaudid No Notes: Memoria 3-25 Same as l 06:03: Dilaudid Benadryl No Notes: [facility]oria 3-25 (Same as: l 06:03: Benadryl) phenol No Notes: [facility]oria 3-25 Chlorasept l 06:03: ic [place] (Same as: Chlorasept ic, Sore Throat [place]) WASTE: F/P - Black; E - Municipal Trash Bin Bisacodyl No Notes: Memori a 3-25 (Same As: l 06:03: Dulcolax, [place] Bisco-Lax) Robaxin No Notes: Memoria 3-25 (Same l 06:03: as:Robaxin ) Melatonin 3 No Notes: Erwin benjamin MG Extended 3-25 (Same as: l Release 06:03: Melatonin) Herm philip Tablet 00 Tylenol No Notes: Do Memor ia 3-25 not exceed l 06:03: 4 gm/day. [place] (Same as: Tylenol) Reglan No Notes: Memoria 3-25 (Same as: l 06:03: Reglan) [place] Phenergan No Notes: Do Mem oria 3-25 not give l 06:03: IV push. [place] (Same as: Phenergan) Saline No Notes: Memoria Flush 0.9% 3-25 preservati l 06:03: ve free. Sodium No 1,000 mL, Memori a Chloride 3-25 Rate: 50 l 0.9% IV 06:03: ml/hr, [place] 1,000 mL 00 Infuse over: 20 hr, [...] benjamin 3-25 (Same as: l 06:03: Apresoline Jason 00 ) Push over 5 minutes Ondansetron No /= 4 Memori a 3-25 years, l 06:03: Pediatric [place] 00 Dosing Acetaminoph No Notes: Do M emoria en 325 MG / 3-25 not exceed l Hydrocodone 06:03: 4gm/day of [place] Bitartrate 00 acetaminop 10 MG Oral hen. (Same Tablet as: [place] [[place] 325/10) 10/325] Dilaudid No Notes: Memoria 3-25 Same as l 06:03: Dilaudid [place] 00 Benadryl No Notes: Memoria 3-25 (Same as: l 06:03: Benadryl) [place] phenol No Notes: Memoria 3-25 Chlorasept l 06:03: ic [place] (Same as: Chlorasept ic, Sore Throat [place]) WASTE: F/P - Black; E - Municipal [...] 3-25 not exceed l 06:03: 4 gm/day. [place] (Same as: Tylenol) Reglan No Notes: Memoria [...] not exceed l Hydrocodone 06:03: 4gm/day of [place] Bitartrate 00 acetaminop 10 MG Oral hen. (Same Tablet as: [place] [[place] 325/10) 10/325] Dilaudid No Notes: Memoria 3-25 Same as l 06:03: Dilaudid Benadryl No Notes: [facility]oria 3-25 (Same as: l 06:03: Benadryl) phenol No Notes: Memoria 3-25 Chlorasept l 06:03: ic [place] (Same as: Chlorasept ic, Sore Throat [place]) WASTE: F/P - Black; E - Municipal Trash Bin Bisacodyl No Notes: Memori a 3-25 (Same As: l 06:03: Dulcolax, [place] 00 Bisco-Lax) Robaxin No Notes: Memoria 3-25 (Same l 06:03: as:Robaxin ) Melatonin 3 No Notes: Erwin benjamin MG Extended 3-25 (Same as: l Release 06:03: Melatonin) Herm philip Tablet 00 Tylenol No Notes: Do Memor ia 3-25 not exceed l 06:03: 4 gm/day. [place] 00 (Same as: Tylenol) Reglan No Notes: Memoria 3-25 (Same as: l 06:03: Reglan) [place] Phenergan No Notes: Do Mem oria 3-25 not give l 06:03: IV push. [place] (Same as: Phenergan) Saline No Notes: Memoria Flush 0.9% 3-25 preservati l 06:03: ve free. [place] Sodium No 1,000 mL, Memori a Chloride [...] Memori a 3-25 years, l 06:03: Pediatric [place] 00 Dosing Acetaminoph No Notes: Do M emoria en 325 MG / 3-25 not exceed l Hydrocodone 06:03: 4gm/day of [place] Bitartrate 00 acetaminop 10 MG Oral hen. (Same Tablet as: [place] [[place] 325/10) 10/325] Dilaudid No Notes: Memoria 3-25 Same as l 06:03: Dilaudid [place] 00 Benadryl No Notes: Memoria 3-25 (Same as: l 06:03: Benadryl) [place] phenol No Notes: Memoria 3-25 Chlorasept l 06:03: ic [place] (Same as: Chlorasept ic, Sore Throat [place]) WASTE: F/P - Black; E - Municipal Trash Bin Bisacodyl No Notes: Memori a 3-25 (Same As: l 06:03: Dulcolax, [place] 00 Bisco-Lax) Robaxin No Notes: Memoria 3-25 (Same l 06:03: as:Robaxin ) Melatonin 3 No Notes: Erwin benjamin MG Extended 3-25 (Same as: l Release 06:03: Melatonin) Herm philip Tablet Tylenol No Notes: Do Memor ia 3-25 not exceed l 06:03: 4 gm/day. [place] 00 (Same as: Tylenol) Reglan No Notes: Memoria 3-25 (Same as: l 06:03: Reglan) [place] 00 Phenergan No Notes: Do Mem oria 3-25 not give l 06:03: IV push. [place] (Same as: Phenergan) Saline No Notes: Memoria Flush 0.9% 3-25 preservati l 06:03: ve free. [place] Sodium No 1,000 mL, Memori a Chloride 3-25 Rate: 50 l 0.9% IV 06:03: ml/hr, [place] 1,000 mL 00 Infuse over: 20 hr, [...] 10 MG Oral hen. (Same Tablet as: [place] [[place] 325/10) 10325] Dilaudid No Notes: Memoria 3-25 Same as l 06:03: Dilaudid Benadryl No Notes: Memoria 3-25 (Same as: l 06:03: Benadryl) [place] phenol No Notes: Memoria 3-25 Chlorasept l 06:03: ic [place] (Same as: Chlorasept ic, Sore Throat [place]) WASTE: F/P - Black; E - Municipal [...] Rate: 50 l 0.9% IV 06:03: ml/hr, [place] 1,000 mL 00 Infuse over: 20 hr, [...] not exceed l Hydrocodone 06:03: 4gm/day of [place] Bitartrate 00 acetaminop 10 MG Oral hen. (Same Tablet as: [place] [[place] 325/10) 10/325] Dilaudid No Notes: Memoria 3-25 Same as l 06:03: Dilaudid Benadryl No Notes: [facility]oria 3-25 (Same as: l 06:03: Benadryl) phenol No Notes: Memoria 3-25 Chlorasept l 06:03: ic [place] (Same as: Chlorasept ic, Sore Throat [place]) WASTE: F/P - Black; E - Municipal Trash Bin Bisacodyl No Notes: Memori a 3-25 (Same As: l 06:03: Dulcolax, Bisco-Lax) Robaxin No Notes: Memoria 3-25 (Same l 06:03: as:Robaxin ) Melatonin 3 No Notes: Erwin benjamin MG Extended 10-06 (Same as: l Release 06:03: Melatonin) philip Tablet 00 Tylenol No Notes: Do [...] by (Faculty): ADC PROVIDER levoFLOXaci 2021- No [id number] 750mg Take 1 Univers n 750 mg 08-09 tablet by ity o f tablet 00:00: 05:59 mouth [place] 00 :00 daily for Medical 4 days. Branch levoFLOXaci 2021- No [id number] 750mg Take 1 Univers n 750 mg 08-09 tablet by ity o f tablet 00:00: 05:59 mouth [place] 00 :00 daily for Medical 4 days. Branch OXYCODONE Yes Take by Unive rs HCL/ACETAMI -25 mouth. ity of NOPHEN 19:49: [place] (PERCOCET 27 Medical ORAL) [place] OXYCODONE Yes Take by Unive rs HCL/ACETAMI 1-25 mouth. ity of NOPHEN 19:49: [place] (PERCOCET 27 Medical ORAL) [place] OXYCODONE Yes Take by Unive rs HCL/ACETAMI -25 mouth. ity of NOPHEN 19:49: [place] (PERCOCET 27 Medical ORAL) [place] OXYCODONE Yes Take by Unive rs HCL/ACETAMI 1-25 mouth. ity of NOPHEN 19:49: [place] (PERCOCET 27 Medical ORAL) [place] vancomycin 2021- No 125mg 125 mg, Un [...] of therapy: 72 hours lactobacill 2021- No [id number] .5mg Take 1 Univers us -08 09-25 tablet by ity of acidophilus 00:00: 05:59 mouth 2 [place] 00 :00 (two) Medical times Branch daily for 30 days. lactobacill 2021- No [id number] .5mg Take 1 Univers us -08 09-25 tablet by ity of acidophilus 00:00: 05:59 mouth 2 [place] 00 :00 (two) Medical times Branch daily for 30 days. vancomycin 2021- No [id number] 125mg Take 1 Univers 125 mg 08-08 capsule by ity of capsule 00:00: 05:59 mouth 4 [place] 00 :00 (four) Medical times Branch daily for 5 days. vancomycin 2021- No [id number] 125mg Take 1 Univers 125 mg 08-08- [...] ADC PROVIDER oxyCODONE-a Yes 2{tbl} 2 tablet, [facility] cetaminophe 08-06 Oral, ity of n 20:39: Q6HPRN, [place] (PERCOCET) 03 Starting Medic al 5-325 mg [...] al (NS) 50 mL First dose [facility] MINI-BAG on 08/05/21 at 0945, Until [...] 00 :00 dose, On Medical NaCl 0.9% [facility] Branch (NS) 50 mL 07/31/21 at piggyback 1915, 50 mL cefdinir 2021-0 2021- No [id number] 300mg Take 1 U nivers 300 mg 07-31 capsule by ity of capsule 00:00: 05:59 mouth [place] 00 :00 every 12 Medical (twelve) Branch hours for 10 days. cefdinir 2021-0 2022- No [id number] 300mg Take 1 U nivers 300 mg [...] 07/29/21 at 1645, Routine methocarbam 0 Yes [id number] 1000mg Take 2 Univers oL 500 mg 1-15 tablets by ity of tablet 00:00: mouth 4 (four) Medical times Branch daily as needed for Pain (scale 1-3). methocarbam 2021-0 Yes [id number] 1000mg Take 2 Univers oL 500 mg 1-15 tablets by ity of tablet 00:00: mouth 4 (four) Medical times Branch daily as needed for Pain (scale 1-3). methocarbam 2021-0 Yes [id number] 1000mg Take 2 Univers oL 500 mg 1-15 tablets by ity of tablet 00:00: mouth 4 (four) Medical times Branch daily as needed for Pain (scale 1-3). methocarbam 2022-0 Yes [id number] 1000mg Take 2 Univers oL 500 mg 1-15 tablets by ity of tablet 00:00: mouth 4 00 (four) Medical times Branch daily as needed for Pain (scale 1-3). methocarbam 2021-0 Yes [id number] 1000mg Take 2 Univers oL 500 mg 1-15 tablets by ity of tablet 00:00: mouth 4 00 (four) Medical times Branch daily as needed for Pain (scale 1-3). methocarbam 0 Yes [id number] 1000mg Take 2 Univers oL 500 mg 1-15 tablets by ity of tablet 00:00: mouth 4 00 (four) Medical times Branch daily as needed for Pain (scale 1-3). methocarbam 0 2021- No [id number] 1000mg Take 2 Univers oL 500 mg [...] 06/07/21 at 1615, Routine fidaxomicin 2020-07 Yes [id number] 200mg Take 1 Univers 200 mg 1-24 tablet by ity of tablet 00:00: mouth 2 (two) Medical times Branch daily. proMETHazin 2020-07 Yes [id number] 25mg Take 1 Univers e 25 mg 1-24 tablet by ity of tablet 00:00: mouth [place] 00 every 6 Medical (six) Branch hours as needed for Nausea and Vomiting (N/V). fidaxomicin 2020-07 Yes [id number] 200mg Take 1 Univers 200 mg 1-24 tablet by ity of tablet 00:00: mouth 2 00 (two) Medical times Branch daily. proMETHazin 2020-07 Yes [id number] 25mg Take 1 Univers e 25 mg 1-24 tablet by ity of tablet 00:00: mouth [place] 00 every 6 Medical (six) Branch hours as needed for Nausea and Vomiting (N/V). cholestyram 2020-07 Yes Univer s ine 4 gram 1-24 ity of packet 00:00: [place] 00 Medical Branch fidaxomicin 2020-07 Yes [id number] 200mg Take 1 Univers 200 mg 1-24 tablet by ity of tablet 00:00: mouth 2 00 (two) Medical times Branch daily. proMETHazin 2020-07 Yes [id number] 25mg Take 1 Univers e 25 mg 1-24 tablet by ity of tablet 00:00: mouth [place] 00 every 6 Medical (six) Branch hours as needed for Nausea and Vomiting (N/V). cholestyram 2020-07 Yes Univer s ine 4 gram 1-24 ity of packet 00:00: [place] 00 Medical Branch cholestyram 2020-07 Yes Univer s ine 4 gram 1-24 ity of packet 00:00: [place] 00 Medical Branch cholestyram 2020-07 Yes Univer s ine 4 gram 1-24 ity of packet 00:00: [place] 00 Medical Branch cholestyram 2020-07 Yes Univer s ine 4 gram 1-24 ity of packet 00:00: [place] 00 Medical Branch cholestyram 2020-07 Yes Univer s ine 4 gram 1-24 ity of packet 00:00: [place] 00 Medical Branch fidaxomicin 2020-07 Yes [id number] 200mg Take 1 Univers 200 mg 1-24 tablet by ity of tablet 00:00: mouth 2 [place] 00 (two) Medical times Branch daily. proMETHazin 2020-07 Yes [id number] 25mg Take 1 Univers e 25 mg 1-24 tablet by ity of tablet 00:00: mouth [place] 00 every 6 Medical (six) Branch hours as needed for Nausea and Vomiting (N/V). cholestyram 2020-07- No Unive rs ine 4 gram 1-24 05-11 ity of packet 00:00: 00:00 [place] 00 :00 Medical Branch fidaxomicin 2020-07- No [id number] 200mg Take 1 Univers 200 mg 1-24 01-25 tablet by ity of tablet 00:00: 00:00 mouth 2 [place] 00 :00 (two) Medical times Branch daily. proMETHazin 2020-07- No [id number] 25mg Take 1 Univers e 25 mg [...] of 1,000 mg in 02:30: 01:55 Piggyback, [place] NaCl 0.9% 00 :00 ONCE, 1 Medical (NS) 50 mL dose, [facility] MINI-BAG 11/20/20 at 2130, 50 mL
Reas on for Anti-Infec tive: Documented Infection< br>Documen lester Infection Site: Urine
D uration of Therapy: 7 days famotidine No 20mg 20 mg, Univ ers (PEPCID 5- 05-10 Slow IV ity of (PF)) 01:00: 00:12 Push, [place] injection 00 :00 ONCE, 1 Medical 20 mg dose, [facility], [facility]1983 11/20/20 at 2000, SAHARA proMETHazin 2020- No 25mg 25 mg, IV Univers e 5- 05-10 Piggyback, ity of (PHENERGAN) 00:45: 00:11 ONCE, 1 [place] 25 mg in 00 :00 dose, [facility] NaCl 0.9% 11/20/20 at [facility] h (NS) 50 mL 1945, [...] 11/20/20 at 1900, SAHARA cefdinir 2020- No [id number] 300mg Take 1 U nivers 300 mg [...] No 25U Inject [address] [facility] [address] lispro -16 01-15 Units [facility] (HUMALOG) 00:00: 23:59 subcutaneo M edical 100 unit/mL 00 :00 usly 3 Center injection (three) times daily before meals. normal 2017-07 No 1,000 mL, [facility] a saline 0.9% 1-08 Rate: 100 l IV 1,000 mL 11:04: ml/hr, [facility] 00 Infuse over: 10 hr, Route: IV, Dosing Weight 131.818 kg, Total Volume: 1,000, Start date: 05/22/18 5:04:00 SKIN LAP BONDER, Duration: 30 day, Stop date: 06/21/18 5:03:00 SKIN LAP BONDER, 2.4, m2 normal 2017-07 No 1,000 mL, [facility] a saline 0.9% 1-08 Rate: 100 l IV 1,000 mL 11:04: ml/hr, [facility] 00 Infuse over: 10 hr, Route: IV, Dosing Weight 131.818 kg, Total Volume: 1,000, Start date: 05/22/18 5:04:00 SKIN LAP BONDER, Duration: 30 day, Stop date: 06/21/18 5:03:00 SKIN LAP BONDER, 2.4, m2 normal 2017-07 No 1,000 mL, [facility] a saline 0.9% 1-08 Rate: 100 l IV 1,000 mL 11:04: ml/hr, [facility] 00 Infuse over: 10 hr, Route: IV, Dosing Weight 131.818 kg, Total Volume: 1,000, Start date: 05/22/18 5:04:00 SKIN LAP BONDER, Duration: 30 day, Stop date: 06/21/18 5:03:00 SKIN LAP BONDER, 2.4, m2 normal 2018- No 1,000 mL, [facility] a saline 0.9% 1-08 Rate: 100 l IV 1,000 mL 11:04: ml/hr, Herm philip 00 Infuse over: 10 hr, Route: IV, Dosing Weight 131.818 kg, Total Volume: 1,000, Start date: 05/22/18 5:04:00 SKIN LAP BONDER, Duration: 30 day, Stop date: 06/21/18 5:03:00 SKIN LAP BONDER, 2.4, m2 normal 2018- No 1,000 mL, Memori a saline 0.9% 1-08 Rate: 100 l IV 1,000 mL 11:04: ml/hr, Herm philip 00 Infuse over: 10 hr, Route: IV, Dosing Weight 131.818 kg, Total Volume: 1,000, Start date: 05/22/18 5:04:00 SKIN LAP BONDER, Duration: 30 day, Stop date: 06/21/18 5:03:00 SKIN LAP BONDER, 2.4, m2 normal 2018- No 1,000 mL, Memori a saline 0.9% 1-08 Rate: 100 l IV 1,000 mL 11:04: ml/hr, Herm philip 00 Infuse over: 10 hr, Route: IV, Dosing Weight 131.818 kg, Total Volume: 1,000, Start date: 05/22/18 5:04:00 SKIN LAP BONDER, Duration: 30 day, Stop date: 06/21/18 5:03:00 SKIN LAP BONDER, 2.4, m2 normal 2017- No 1,000 mL, Memori a saline 0.9% 1-08 Rate: 100 l IV 1,000 mL 11:04: ml/hr, Herm philip 00 Infuse over: 10 hr, Route: IV, Dosing Weight 131.818 kg, Total Volume: 1,000, Start date: 05/22/18 5:04:00 SKIN LAP BONDER, Duration: 30 day, Stop date: 06/21/18 5:03:00 SKIN LAP BONDER, 2.4, m2 normal 2018-1 No 1,000 mL, Memori a saline 0.9% 1-08 Rate: 100 l IV 1,000 mL 11:04: ml/hr, Herm philip 00 Infuse over: 10 hr, Route: IV, Dosing Weight 131.818 kg, Total Volume: 1,000, Start date: 05/22/18 5:04:00 SKIN LAP BONDER, Duration: 30 day, Stop date: 06/21/18 5:03:00 SKIN LAP BONDER, 2.4, m2 Magnesium 2017-07 No Notes: Memori a Sulfate 1-08 WASTE: F/P l 10:36: - Sink; E [place] - [facility] Trash Bin Isolyte S 2017-07 [...] WASTE: F/P l 10:36: - Sink; E [place] - [facility] Trash Bin Isolyte S 2017-07 No Notes: Memori a PH-7.4 1-08 (Same as: l (Bolus) IV 10:36: Isolyte S He rmann 00 PH 7.4) Magnesium 2017-07 No Notes: Memori a Sulfate 1-08 WASTE: F/P l 10:36: - Sink; E [place] - [facility] Trash Bin Isolyte S 2017-07 No Notes: Memori a PH-7.4 1-08 (Same as: l (Bolus) IV 10:36: Isolyte S He rmann 00 PH 7.4) Magnesium 2017-07 No Notes: Memori a Sulfate 1-08 WASTE: F/P l 10:36: - Sink; E [place] - [facility] Trash Bin Isolyte S 2017-07 No Notes: Memori a PH-7.4 1-08 (Same as: l (Bolus) IV 10:36: Isolyte S He rmann 00 PH 7.4) Magnesium 2017-07 No Notes: Memori a Sulfate 1-08 WASTE: F/P l 10:36: - Sink; E [place] - [facility] Trash Bin Isolyte S 2017-07 [...] kg, Priority: STAT, Start date: 05/22/18 4:35:00 SKIN LAP BONDER, Stop date: 05/22/18 4:35:00 SKIN LAP BONDER Phenergan 2017- No 12.5 mg, Erwin benjamin 1-08 0.5 mL, l 10:35: Route: Jason 00 IVPB, Drug form: INJ, ONCE, Dosing Weight 131.818, kg, Priority: STAT, Start date: 05/22/18 4:35:00 SKIN LAP BONDER, Stop date: 05/22/18 4:35:00 SKIN LAP BONDER Phenergan 2017-07 No 12.5 mg, Erwin benjamin 1-08 0.5 mL, l 10:35: Route: [place] 00 IVPB, Drug form: INJ, ONCE, Dosing Weight 131.818, kg, Priority: STAT, Start date: 05/22/18 4:35:00 SKIN LAP BONDER, Stop date: 05/22/18 4:35:00 SKIN LAP BONDER Phenergan 2017- No 12.5 mg, Erwin benjamin 1-08 0.5 mL, l 10:35: Route: [place] 00 IVPB, Drug form: INJ, ONCE, Dosing Weight 131.818, kg, Priority: STAT, Start date: 05/22/18 4:35:00 SKIN LAP BONDER, Stop date: 05/22/18 4:35:00 SKIN LAP BONDER Phenergan 2018-1 No 12.5 mg, Erwin benjamin 1-08 0.5 mL, l 10:35: Route: Jason IVPB, Drug form: INJ, ONCE, Dosing Weight 131.818, kg, Priority: STAT, Start date: 05/22/18 4:35:00 SKIN LAP BONDER, Stop date: 05/22/18 4:35:00 SKIN LAP BONDER Phenergan 2018-1 No 12.5 mg, Erwin benjamin 1-08 0.5 mL, l 10:35: Route: Jason IVPB, Drug form: INJ, ONCE, Dosing Weight 131.818, kg, Priority: STAT, Start date: 05/22/18 4:35:00 SKIN LAP BONDER, Stop date: 05/22/18 4:35:00 SKIN LAP BONDER Phenergan 2018-1 No 12.5 mg, Erwin benjamin 1-08 0.5 mL, l 10:35: Route: [place] 00 IVPB, Drug form: INJ, ONCE, Dosing Weight 131.818, kg, Priority: STAT, Start date: 05/22/18 4:35:00 SKIN LAP BONDER, Stop date: 05/22/18 4:35:00 SKIN LAP BONDER Phenergan 2018-1 No 12.5 mg, Erwin benjamin 1-08 0.5 mL, l 10:35: Route: [place] 00 IVPB, Drug form: INJ, ONCE, Dosing Weight 131.818, kg, Priority: STAT, Start date: 05/22/18 4:35:00 SKIN LAP BONDER, Stop date: 05/22/18 4:35:00 SKIN LAP BONDER Wellbutrin Wellbutrin 2018-1 No 1{table BID Wellbutrin SR 150 MG SR 150 MG 0-04 t_in_th SR 150 MG 00:00: [email or web address]_morni 00 ng} Wellbutrin Wellbutrin 2018-1 No 1{table BID Wellbutrin SR 150 MG SR 150 MG 0-04 t_in_th SR 150 MG 00:00: e_morni 00 ng} Wellbutrin Wellbutrin 2018-1 No 1{table BID SR 150 MG SR [...] S pirit e e 00:00: - [facility] Seroquel Seroquel 0 Yes Na Gamble 1 tablet Common 7-16 Spirit 00:00: [facility] Docusate Yes 100 mg = 1 Mem oria Sodium 100 5-08 cap, PO, l MG Oral 14:56: BID, 0 [place] Capsule 00 Refill(s) Zosyn 0 Yes 0 Memoria 5-08 Refill(s) l 14:56: Jason 00 celecoxib 0 Yes 200 mg = 1 Me moria 200 mg oral 5-08 cap, PO, l capsule 14:56: BID, 0 [place] 00 Refill(s) ascorbic Yes 500 mg = [...] 5-08 TOP, l de 0.05 14:56: Daily, [place] MG/MG 00 Remove Transdermal after 12 Patch hours, 0 [Lidoderm] Refill(s) Docusate Yes 100 mg = 1 Mem oria Sodium 100 5-08 cap, PO, l MG Oral 14:56: BID, 0 Jason Capsule 00 Refill(s) Zosyn Yes 0 Memoria 5-08 Refill(s) l 14:56: [place] 00 celecoxib Yes 200 mg = 1 Me moria 200 mg oral 5-08 cap, PO, l capsule 14:56: BID, 0 [place] 00 Refill(s) ascorbic Yes 500 mg = [...] n 5-08 Daily, 0 l 14:56: Refill(s) [place] 00 methocarbam Yes 1,000 mg = Memoria [...] PO, l MG Oral 14:56: BID, 0 [place] Capsule 00 Refill(s) Zosyn Yes 0 Memoria 5-08 Refill(s) l 14:56: [place] 00 celecoxib Yes 200 mg = 1 [...] n 5-08 Daily, 0 l 14:56: Refill(s) [place] methocarbam Yes 1,000 mg = Memoria ol [...] PO, l MG Oral 14:56: BID, 0 [place] Capsule 00 Refill(s) Zosyn Yes 0 Memoria 5-08 Refill(s) l 14:56: [place] 00 celecoxib Yes 200 mg = 1 Me moria 200 mg oral 5-08 cap, PO, l capsule 14:56: BID, 0 [place] 00 Refill(s) ascorbic Yes 500 mg = 1 Mem oria acid 5-08 tab, PO, l 14:56: BID, 0 [place] 00 Refill(s) acetaminoph Yes 1,000 mg = [...] n 5-08 Daily, 0 l 14:56: Refill(s) [place] methocarbam Yes 1,000 mg = Memoria ol [...] Yes 0 Memoria 5-08 Refill(s) l 14:56: [place] 00 celecoxib Yes 200 mg = 1 Me moria 200 mg oral 5-08 cap, PO, l capsule 14:56: BID, 0 Jason Refill(s) ascorbic Yes 500 mg = 1 Mem oria acid 5-08 tab, PO, l 14:56: BID, 0 [place] 00 Refill(s) acetaminoph Yes 1,000 mg = [...] n 5-08 Daily, 0 l 14:56: Refill(s) [place] methocarbam Yes 1,000 mg = Memoria ol 500 mg 5-08 2 tab, PO, l oral tablet 14:56: Q8H, 0 Herm philip 00 Refill(s) LORazepam Yes 0.5 mg = 1 Me moria 0.5 mg oral 5-08 tab, PO, l tablet 14:56: Q8H, PRN Jason 00 Anxiety, 0 Refill(s) Lidocaine Yes 3 patch, Erwin benjamin Hydrochlori 5-08 TOP, l de 0.05 14:56: Daily, [place] MG/MG 00 Remove Transdermal after 12 Patch hours, 0 [Lidoderm] Refill(s) Docusate Yes 100 mg = 1 Mem oria Sodium 100 5-08 cap, PO, l MG Oral 14:56: BID, 0 [place] Capsule 00 Refill(s) Zosyn Yes 0 Memoria 5-08 Refill(s) l 14:56: [place] 00 celecoxib Yes 200 mg = 1 Me moria 200 mg oral 5-08 cap, PO, l capsule 14:56: BID, 0 [place] 00 Refill(s) ascorbic Yes 500 mg = 1 Mem oria acid 5-08 tab, PO, l 14:56: BID, 0 [place] 00 Refill(s) acetaminoph Yes 1,000 mg = Memoria en 500 mg 5-08 2 tab, PO, l oral tablet 14:56: Q6Hnow, 0 H ermann 00 Refill(s) Oxycodone Yes 5 mg = 1 Eriwn benjamin Hydrochlori 5-08 tab, PO, l de [...] 5-08 TOP, l de 0.05 14:56: Daily, [place] MG/MG 00 Remove Transdermal after 12 Patch hours, 0 [Lidoderm] Refill(s) Docusate Yes 100 mg = 1 Mem oria Sodium 100 5-08 cap, PO, l MG Oral 14:56: BID, 0 [place] Capsule 00 Refill(s) Zosyn Yes 0 Memoria 5-08 Refill(s) l 14:56: [place] 00 celecoxib Yes 200 mg = 1 Me moria 200 mg oral 5-08 cap, PO, l capsule 14:56: BID, 0 Jason 00 Refill(s) ascorbic Yes 500 mg = 1 Mem oria acid 5-08 tab, PO, l 14:56: BID, 0 [place] 00 Refill(s) acetaminoph Yes 1,000 mg = [...] n 5-08 Daily, 0 l 14:56: Refill(s) [place] 00 methocarbam Yes 1,000 mg = Memoria ol 500 mg 5-08 2 tab, PO, l oral tablet 14:56: Q8H, 0 Herm philip 00 Refill(s) LORazepam Yes 0.5 mg = 1 Me moria 0.5 mg oral 5-08 tab, PO, l tablet 14:56: Q8H, PRN [place] 00 Anxiety, 0 Refill(s) Lidocaine Yes 3 patch, Erwin benjamin Hydrochlori 5-08 TOP, l de 0.05 14:56: Daily, [place] MG/MG 00 Remove Transdermal after 12 Patch [...] 5-08 tab, PO, l 14:56: BID, 0 [place] 00 Refill(s) acetaminoph Yes 1,000 mg = [...] n 5-08 Daily, 0 l 14:56: Refill(s) [place] 00 methocarbam Yes 1,000 mg = Memoria [...] Notes: Memoria 5-06 (Same l 21:00: as:Robaxin [place] 00 ) Robaxin No Notes: Memoria 5-06 (Same l 21:00: as:Robaxin [place] 00 ) Robaxin No Notes: Memoria 5-06 (Same l 21:00: as:Robaxin [place] ) Robaxin No Notes: Memoria 5-06 (Same [...] Memoria 5-06 (Same as: l 15:18: Ativan) [place] Ativan No Notes: Memoria 5-06 (Same as: l 15:18: Ativan) [place] Ativan No Notes: Memoria 5-06 (Same as: l 15:18: Ativan) [place] Ativan No Notes: Memoria 5-06 (Same as: l 15:18: Ativan) [place] Ativan No Notes: Memoria 5-06 (Same as: l 15:18: Ativan) [place] Ativan No Notes: Memoria 5-06 (Same as: l 15:18: Ativan) Jason 00 Trazodone No Notes: Memori a Hydrochlori 5-06 (Same As: l de 50 MG 02:00: Desyrel) Kristen nn Oral Tablet 00 remove No Notes: Memoria patch 5-06 Remove l 02:00: patch 12 [place] 00 hours after applicatio n each day. Trazodone No Notes: Memori a Hydrochlori 5-06 (Same As: l de 50 MG 02:00: Desyrel) Kristen nn Oral Tablet 00 remove No Notes: Memoria patch 5-06 Remove l 02:00: patch 12 [place] 00 hours after applicatio n each day. Trazodone No Notes: Memori a Hydrochlori 5-06 (Same As: l de 50 MG 02:00: Desyrel) Kristen nn Oral Tablet 00 remove No Notes: Memoria patch 5-06 Remove l 02:00: patch 12 [place] 00 hours after applicatio n each day. [...] patch 5-06 Remove l 02:00: patch 12 [place] 00 hours after applicatio n each day. [...] Notes: Memoria 5-05 NSAID. l 22:00: Please [place] 00 check indication . Not for seizure. [...] Notes: Memoria 5-05 NSAID. l 22:00: Please [place] 00 check indication . Not for seizure. (Same As: CeleBREX) Celebrex 0 No Notes: Memoria 5-05 NSAID. l 22:00: Please Jason 00 check indication . Not for seizure. (Same As: CeleBREX) Vancomycin 2018-0 No 2001 mg: Me moria 5-05 infuse l 21:00: over 2.5 [place] 00 hours Vancomycin 2018-0 No 2001 mg: Me moria 5-05 infuse l 21:00: over 2.5 [place] 00 hours Vancomycin 2018-0 No 2001 mg: Me moria 5-05 infuse l 21:00: over 2.5 Jason 00 hours Vancomycin 2018-0 No 2001 mg: Me moria 5-05 infuse l 21:00: over 2.5 [place] 00 hours Vancomycin 2018-0 No 2001 mg: Me moria 5-05 infuse l 21:00: over 2.5 Jason 00 hours Vancomycin 2018-0 No 2001 mg: Me moria 5-05 infuse l 21:00: over 2.5 Jason 00 hours Vancomycin 2018-0 No 2001 mg: Me moria 5-05 infuse l 21:00: over 2.5 [place] 00 hours Vancomycin 2018-0 No 2001 mg: Me moria 5-05 infuse l 21:00: over 2.5 [place] 00 hours Lidocaine 2018-0 No Notes: Memori [...] before applicatio n of new patch" Lidocaine 2018-0 No Notes: Memori a Hydrochlori 5-05 Apply only l de 0.05 14:00: once for Christian n MG/MG 00 up to 12 Transdermal hours in a Patch 24-hour [Lidoderm] period (12 hours on and 12 hours off). (Same as: Lidoderm) "Remove old patch before applicatio n of new patch" Lidocaine 2018-0 No Notes: Memori a Hydrochlori [...] 5-04 not give l 22:40: IV push. [place] 00 (Same as: Phenergan) Dilaudid No Notes: Memoria 5-04 Same as l 22:40: Dilaudid [place] 00 Phenergan No Notes: Do Mem oria 5-04 not give l 22:40: IV push. [place] 00 (Same as: Phenergan) Dilaudid No Notes: Memoria 5-04 Same as l 22:40: Dilaudid Jason 00 Phenergan No Notes: Do Mem oria 5-04 not give l 22:40: IV push. [place] 00 (Same as: Phenergan) Dilaudid No Notes: Memoria 5-04 Same as l 22:40: Dilaudid Jason 00 Phenergan No Notes: Do Mem oria 5-04 not give l 22:40: IV push. [place] 00 (Same as: Phenergan) Dilaudid No Notes: Memoria 5-04 Same as l 22:40: Dilaudid Jason 00 Phenergan No Notes: Do Mem oria 5-04 not give l 22:40: IV push. [place] 00 (Same as: Phenergan) Dilaudid No Notes: Memoria 5-04 Same as l 22:40: Dilaudid [place] 00 Phenergan No Notes: Do Mem oria 5-04 not give l 22:40: IV push. [place] 00 (Same as: Phenergan) Dilaudid No Notes: [...] ia 5-04 (Same as: l 22:00: Neurontin) [place] Acetaminoph No Notes: Max Memoria en 5-04 acetaminop l 22:00: hen 4000 Jason 00 mg/day (4 gm/day). (Same as: Tylenol Extra Strength) Robaxin No Notes: Memoria 5-04 (Same l 22:00: as:Robaxin [place] ) Tramadol 0 No Notes: Not Mem oria 5-04 to exceed l 22:00: 400mg/day. Jason 00 (Same As: Ultram) gabapentin No Notes: Memor ia 5-04 (Same as: l 22:00: Neurontin) [place] Acetaminoph No Notes: Max Memoria en 5-04 acetaminop l 22:00: hen 4000 Jason 00 mg/day (4 gm/day). (Same as: Tylenol Extra Strength) Robaxin No Notes: Memoria 5-04 (Same l 22:00: as:Robaxin [place] ) Tramadol No Notes: Not Mem oria 5-04 to exceed l 22:00: 400mg/day. Jason 00 (Same As: Ultram) gabapentin No Notes: Memor ia 5-04 (Same as: l 22:00: Neurontin) Jason Acetaminoph No Notes: Max Memoria en 5-04 acetaminop l 22:00: hen 4000 [place] 00 mg/day (4 gm/day). (Same as: Tylenol [...] Notes: Memoria 5-04 (Same l 22:00: as:Robaxin [place] 00 ) Tramadol 0 No Notes: Not Mem oria 5-04 to exceed l 22:00: 400mg/day. Jason 00 (Same As: Ultram) gabapentin No Notes: Memor ia 5-04 (Same as: l 22:00: Neurontin) [place] Acetaminoph No Notes: Max Memoria en 5-04 acetaminop l 22:00: hen 4000 Jason 00 mg/day (4 gm/day). (Same as: Tylenol Extra Strength) Robaxin No Notes: Memoria 5-04 (Same l 22:00: as:Robaxin [place] 00 ) Tramadol No Notes: Not Mem oria 5-04 to exceed l 22:00: 400mg/day. [place] 00 (Same As: Ultram) gabapentin No Notes: Memor ia 5-04 (Same as: l 22:00: Neurontin) Jason Acetaminoph No Notes: Max Memoria en 5-04 acetaminop l 22:00: hen 4000 [place] 00 mg/day (4 gm/day). (Same as: Tylenol Extra Strength) Robaxin No Notes: Memoria 5-04 (Same l 22:00: as:Robaxin [place] ) Tramadol No Notes: Not Mem oria 5-04 to exceed l 22:00: 400mg/day. Jason 00 (Same As: Ultram) gabapentin No Notes: Memor ia 5-04 (Same as: l 22:00: Neurontin) [place] Acetaminoph No Notes: Max Memoria en 5-04 acetaminop l 22:00: hen 4000 Jason 00 mg/day (4 gm/day). (Same as: Tylenol Extra Strength) Robaxin No Notes: Memoria 5-04 (Same l 22:00: as:Robaxin [place] 00 ) Tramadol No Notes: Not Mem oria 5-04 to exceed l 22:00: 400mg/day. Jason 00 (Same As: Ultram) gabapentin No Notes: Memor ia 5-04 (Same as: l 22:00: Neurontin) [place] Acetaminoph No Notes: Max Memoria en 5-04 acetaminop l 22:00: hen 4000 Jason 00 mg/day (4 gm/day). (Same as: Tylenol Extra Strength) Robaxin No Notes: Memoria 5-04 (Same l 22:00: as:Robaxin [place] 00 ) Oxycodone No Notes: Memori a [...] pkt 5-04 (Same as: l 21:30: Beneprotei [place] 00 n) Beneprotein No Notes: Erwin benjamin 7 gm pkt 5-04 (Same as: l 21:30: Beneprotei [place] 00 n) Beneprotein No Notes: Erwin benjamin 7 gm pkt 5-04 (Same as: l 21:30: Beneprotei [place] 00 n) Beneprotein No Notes: Erwin benjamin 7 gm pkt 5-04 (Same as: l 21:30: Beneprotei [place] 00 n) Beneprotein No Notes: Erwin benjamin [...] pkt 5-04 (Same as: l 21:30: Beneprotei [place] 00 n) Acetaminoph No 1 tab, PO, Memoria en 325 MG / 5-04 TID, 0 l Oxycodone 17:12: Refill(s) Her jovany Hydrochlori 00 de 10 MG Oral Tablet [Percocet 10/325] Acetaminoph No 1 tab, PO, Memoria en 325 MG / 5-04 TID, 0 l Oxycodone 17:12: Refill(s) Her jovayn Hydrochlori 00 de 10 MG Oral Tablet [...] a 5-04 0.25 mL, l 16:01: Route: [place] 00 IVP, Drug form: INJ, ONCE, Start [...] Memoria 5-04 Route: l 15:43: IVP, ONCE, [place] Dosing Weight 127.027, kg, Priority: STAT, Start date: 11/15/17 10:43:00 CDT, Stop date: 11/15/17 10:43:00 CDT Phenergan 2018-0 No Notes: Memori a 5-04 (Same as: l 15:43: Phenergan) Dilaudid 2017-0 No 2 mg, Memoria 5-04 Route: l 15:43: IVP, ONCE, [place] 00 Dosing Weight 127.027, kg, Priority: STAT, Start date: 11/15/17 10:43:00 CDT, Stop date: 11/15/17 10:43:00 CDT Phenergan 2018-0 No Notes: Memori a 5-04 (Same as: l 15:43: Phenergan) Dilaudid 2017-0 No 2 mg, Memoria 5-04 Route: l 15:43: IVP, ONCE, [place] 00 Dosing Weight 127.027, kg, Priority: STAT, Start date: 11/15/17 10:43:00 CDT, Stop date: 11/15/17 10:43:00 CDT Phenergan 2018-0 No Notes: Memori a 5-04 (Same as: l 15:43: Phenergan) [place] 00 Dilaudid 2017-0 No 2 mg, Memoria 5-04 Route: l 15:43: IVP, ONCE, Jason 00 Dosing Weight 127.027, kg, Priority: STAT, Start date: 11/15/17 10:43:00 CDT, Stop date: 11/15/17 10:43:00 CDT Docusate No Notes: Memoria 5-04 (Same as: l 14:00: Colace) [place] (Do Not Crush) Zinc No Notes: Memoria Sulfate 5-04 (Zinc l 14:00: sulfate [place] 00 capsule) - 220 mg Zinc sulfate = 50 mg elemental zinc Same as Zinc Sulfate ascorbic No Notes: Memoria acid 5-04 (Same as: l 14:00: Vitamin C) [place] multivitami No Notes: Erwin benjamin n 5-04 [...] 5-04 (Same as: l 14:00: Vitamin C) [place] multivitami No Notes: Erwin benjamin n 5-04 (Same l 14:00: as:Thera) Jason WASTE: F/P - Black; E - Municipal Trash Bin Take with food. Docusate No Notes: Memoria 5-04 (Same as: l 14:00: Colace) Jason (Do Not Crush) Zinc No Notes: Memoria Sulfate 5-04 (Zinc l 14:00: sulfate [place] 00 capsule) - 220 mg Zinc sulfate = 50 mg elemental zinc Same as Zinc Sulfate ascorbic No Notes: Memoria acid 5-04 (Same as: l 14:00: Vitamin C) Jason multivitami No Notes: Erwin benjamin n 5-04 (Same l 14:00: as:Thera) [place] WASTE: F/P - Black; E - Municipal Trash Bin Take with food. Docusate No Notes: Memoria 5-04 (Same as: l 14:00: Colace) [place] 00 (Do Not Crush) Zinc No Notes: Memoria Sulfate 5-04 (Zinc l 14:00: sulfate [place] 00 capsule) - 220 mg Zinc sulfate = 50 mg elemental zinc Same as Zinc Sulfate ascorbic No Notes: Memoria acid 5-04 (Same as: l 14:00: Vitamin C) Jason multivitami No Notes: Erwin benjamin n 5-04 (Same l 14:00: as:Thera) [place] WASTE: F/P - Black; E - Municipal Trash Bin Take with food. Docusate No Notes: Memoria 5-04 (Same as: l 14:00: Colace) [place] (Do Not Crush) Zinc No Notes: Memoria Sulfate 5-04 (Zinc l 14:00: sulfate [place] 00 capsule) - 220 mg Zinc sulfate = 50 mg elemental zinc Same as Zinc Sulfate ascorbic No Notes: Memoria acid 5-04 (Same as: l 14:00: Vitamin C) [place] multivitami No Notes: Erwin benjamin n 5-04 (Same l 14:00: as:Thera) [place] WASTE: F/P - Black; E - Municipal Trash Bin Take with food. Docusate No Notes: Memoria 5-04 (Same as: l 14:00: Colace) [place] (Do Not Crush) Zinc No Notes: Memoria Sulfate 5-04 (Zinc l 14:00: sulfate [place] 00 capsule) - 220 mg Zinc sulfate = 50 mg elemental zinc Same as Zinc Sulfate ascorbic No Notes: Memoria acid 5-04 (Same as: l 14:00: Vitamin C) [place] 00 multivitami No Notes: Erwin benjamin n 5-04 (Same l 14:00: as:Thera) [place] WASTE: F/P - Black; E - Municipal Trash Bin Take with food. Docusate No Notes: Memoria 5-04 (Same as: l 14:00: Colace) [place] (Do Not Crush) Zinc No Notes: Memoria [...] Memoria 5-04 (Same as: l 14:00: Colace) [place] 00 (Do Not Crush) Zinc No Notes: Memoria Sulfate 5-04 (Zinc l 14:00: sulfate [place] capsule) - 220 mg Zinc sulfate = 50 mg elemental zinc Same as Zinc Sulfate ascorbic No Notes: Memoria acid 5-04 (Same as: l 14:00: Vitamin C) [place] 00 multivitami No Notes: Erwin benjamin n 5-04 (Same l 14:00: as:Thera) [place] 00 WASTE: F/P - Black; E - Municipal Trash Bin Take with food. Naproxen No Notes: Memoria 5-04 (Same as: l 07:00: Naprosyn) [place] 00 Take with food. Zosyn No Notes: [...] 5-04 (Same as: l 07:00: Lovenox) Jason Naproxen No Notes: Memoria 5-04 (Same as: l 07:00: Naprosyn) Jason Take with food. Zosyn No Notes: Memoria 5-04 (Same as: l 07:00: Zosyn) [place] 00 Dosing based on Piperacill in component MEDICATION WASTE Product Size: 3375 mg Product Wasted: ___ mg Vancomycin 2018-0 No 2001 mg: Me moria 5-04 infuse l 07:00: over 2.5 [place] 00 hours For adult patients only: Round to nearest 250 mg per Medical Staff approval MEDICATION WASTE Product Size: 1000 mg Product Wasted: ___ mg Enoxaparin 2018-0 No Notes: Memor ia 5-04 (Same as: l 07:00: Lovenox) [place] 00 Naproxen 2018-0 No Notes: Memoria 5-04 (Same as: l 07:00: Naprosyn) [place] 00 Take with food. Zosyn 2018-0 No Notes: Memoria 5-04 (Same as: l 07:00: Zosyn) [place] 00 Dosing based on Piperacill in component MEDICATION WASTE Product Size: 3375 mg Product Wasted: ___ mg Vancomycin 2018-0 No 2001 mg: Me moria 5-04 infuse l 07:00: over 2.5 [place] 00 hours For adult patients only: Round to nearest 250 mg per Medical Staff approval MEDICATION WASTE Product Size: 1000 mg Product Wasted: ___ mg Enoxaparin 2018-0 No Notes: Memor ia 5-04 (Same as: l 07:00: Lovenox) [place] 00 Naproxen 2018-0 No Notes: Memoria 5-04 (Same as: l 07:00: Naprosyn) [place] 00 Take with food. Zosyn 2018-0 No Notes: Memoria 5-04 (Same as: l 07:00: Zosyn) [place] 00 Dosing based on Piperacill in component [...] ia 5-04 (Same as: l 07:00: Lovenox) [place] 00 Naproxen 2018-0 No Notes: Memoria 5-04 (Same as: l 07:00: Naprosyn) [place] 00 Take with food. Zosyn 2018-0 No Notes: Memoria 5-04 (Same as: l 07:00: Zosyn) [place] 00 Dosing based on Piperacill in component MEDICATION WASTE Product Size: 3375 mg Product Wasted: ___ mg Vancomycin 2018-0 No 2001 mg: Me moria 5-04 infuse l 07:00: over 2.5 [place] 00 hours For adult patients only: Round [...] Memoria 5-04 (Same as: l 07:00: Zosyn) [place] 00 Dosing based on Piperacill in component [...] ia 5-04 (Same as: l 07:00: Lovenox) [place] 00 Naproxen 2018-0 No Notes: Memoria 5-04 [...] ia - (Same as: l 07:00: Lovenox) Naproxen No Notes: Memoria - (Same as: [...] 11-15 (Same as: l 06:46: BD [place] 00 Posiflush) Acetaminoph No Notes: Do M emoria en - not exceed l 06:46: 4 gm/day. [place] 00 (Same as: Tylenol) Acetaminoph No Notes: Erwin benjamin en 325 MG / 11-15 (Same as: l Hydrocodone 06:46: [place] Kristen nn Bitartrate 00 325/5) Do 5 MG Oral not exceed Tablet 4gm/day of acetaminop hen. Sodium No 1,000 mL, Memori a Chloride 5-04 Rate: 125 l 0.9% IV 06:46: ml/hr, [place] 1,000 mL 00 Infuse over: 8 hr, [...] / 5-04 (Same as: l Hydrocodone 06:46: [place] Kristen nn Bitartrate 00 325/5) Do 5 MG Oral not exceed Tablet 4gm/day of acetaminop hen. Sodium No 1,000 mL, Memori a Chloride 5-04 Rate: 125 l 0.9% IV 06:46: ml/hr, [place] 1,000 mL 00 Infuse over: 8 hr, Route: IV, Dosing Weight 127.27 kg, Total Volume: 1,000, Start date: 11/15/17 1:46:00 CDT, Duration: 30 day, Stop date: 12/15/17 1:45:00 CDT, 2.44, m2 Saline No Notes: Memoria Flush 0.9% 5-04 (Same as: l 06:46: BD [place] 00 Posiflush) Acetaminoph No Notes: Do M emoria en 5-04 not exceed l 06:46: 4 gm/day. [place] 00 (Same as: Tylenol) Acetaminoph No Notes: Erwin benjamin en 325 MG / 5-04 (Same as: l Hydrocodone 06:46: [place] Kristen nn Bitartrate 00 325/5) Do 5 [...] 0.9% 5-04 (Same as: l 06:46: BD [place] 00 Posiflush) Acetaminoph No Notes: Do M emoria en 5-04 not exceed l 06:46: 4 gm/day. [place] 00 (Same as: Tylenol) Acetaminoph No Notes: Erwin benjamin en 325 MG / 5-04 (Same as: l Hydrocodone 06:46: [place] Kristen nn Bitartrate 00 325/5) Do 5 [...] 0.9% 5-04 (Same as: l 06:46: BD [place] 00 Posiflush) Acetaminoph No Notes: Do M emoria en 5-04 not exceed l 06:46: 4 gm/day. [place] 00 (Same as: Tylenol) Acetaminoph No Notes: Erwin benjamin en 325 MG / 5-04 (Same as: l Hydrocodone 06:46: [place] Kristen nn Bitartrate 00 325/5) Do 5 [...] 5-04 not exceed l 06:46: 4 gm/day. [place] 00 (Same as: Tylenol) Acetaminoph No Notes: Erwin benjamin en 325 MG / 5-04 (Same as: l Hydrocodone 06:46: [place] Kristen nn Bitartrate 00 325/5) Do 5 MG Oral not exceed Tablet 4gm/day of acetaminop hen. Sodium No 1,000 mL, Memori a Chloride 5-04 Rate: 125 l 0.9% IV 06:46: ml/hr, [place] 1,000 mL 00 Infuse over: 8 hr, [...] / 5-04 (Same as: l Hydrocodone 06:46: [place] Kristen nn Bitartrate 00 325/5) Do 5 [...] 0.9% 5-04 (Same as: l 06:46: BD [place] Posiflush) Acetaminoph No Notes: Do M emoria en 5-04 not exceed l 06:46: 4 gm/day. Jason (Same as: Tylenol) Acetaminoph No Notes: Erwin benjamin en 325 MG / 5-04 (Same as: l Hydrocodone 06:46: [place] Kristen nn Bitartrate 00 325/5) Do 5 MG Oral not exceed Tablet 4gm/day of acetaminop hen. Reglan No Notes: Memoria 5-04 (Same as: l 04:27: Reglan) Benadryl No Notes: Memoria 5-04 (Same as: l 04:27: Benadryl) [place] 00 Reglan No Notes: Memoria 5-04 (Same as: l 04:27: Reglan) Jason 00 Benadryl No Notes: Memoria 5-04 (Same as: l 04:27: Benadryl) Jason 00 Reglan No Notes: Memoria 5-04 (Same as: l 04:27: Reglan) [place] Benadryl No Notes: Memoria 5-04 (Same as: l 04:27: Benadryl) [place] Reglan No Notes: Memoria 5-04 (Same as: l 04:27: Reglan) [place] Benadryl No Notes: Memoria 5-04 (Same as: l 04:27: Benadryl) [place] 00 Reglan No Notes: Memoria 5-04 (Same as: l 04:27: Reglan) [place] 00 Benadryl No Notes: Memoria 5-04 (Same as: l 04:27: Benadryl) [place] 00 Reglan No Notes: Memoria 5-04 (Same as: l 04:27: Reglan) [place] Benadryl No Notes: Memoria 5-04 (Same as: l 04:27: Benadryl) [place] Reglan No Notes: Memoria 5-04 (Same as: l 04:27: Reglan) [place] Benadryl No Notes: Memoria 5-04 (Same as: l 04:27: Benadryl) [place] Reglan No Notes: Memoria 5-04 (Same as: l 04:27: Reglan) [place] Benadryl No Notes: Memoria 5-04 (Same as: l 04:27: Benadryl) [place] Magnesium No Notes: Memori a Sulfate 5-04 WASTE: F/P l 04:26: - Sink; E [place] - [facility] Trash Bin Sodium No 1,000 mL, Memori a Chloride 5-04 1000 l 0.9% 04:26: ml/hr, [place] (Bolus) IV 00 Infuse Over: 1 hr, Route: IV, 1,000, Drug form: INJ, ONCE, Priority: STAT, Dosing Weight 127.273 kg, Start date: 11/14/17 23:26:00 CDT, Stop date: 11/14/17 23:26:00 CDT Magnesium No Notes: Memori a Sulfate 5-04 WASTE: F/P l 04:26: - Sink; E [place] - [facility] Sodium No 1,000 mL, Memori a Chloride 5-04 1000 l 0.9% 04:26: ml/hr, [place] (Bolus) IV 00 Infuse Over: 1 hr, Route: IV, 1,000, Drug form: INJ, ONCE, Priority: STAT, Dosing Weight 127.273 kg, Start date: 11/14/17 23:26:00 CDT, Stop date: 11/14/17 23:26:00 CDT Magnesium No Notes: Memori a Sulfate 5-04 WASTE: F/P l 04:26: - Sink; E [place] - [facility] Sodium No 1,000 [...] E Jason - [facility] Sodium 0 No 1,000 mL, Memori a Chloride 5-04 [...] E Jason - [facility] Sodium 20180 No 1,000 mL, Memori a Chloride 5-04 1000 l 0.9% 04:26: ml/hr, [place] (Bolus) IV 00 Infuse Over: 1 hr, [...] Chloride 5-04 1000 l 0.9% 04:26: ml/hr, [place] (Bolus) IV 00 Infuse Over: 1 hr, Route: IV, 1,000, Drug form: INJ, ONCE, Priority: STAT, Dosing Weight 127.273 kg, Start date: 11/14/17 23:26:00 CDT, Stop date: 11/14/17 23:26:00 CDT Magnesium 2018-0 No Notes: Memori a Sulfate 5-04 WASTE: F/P l 04:26: - Sink; E [place] - [facility] Sodium 2018-0 No 1,000 mL, Memori a Chloride 5-04 1000 l 0.9% 04:26: ml/hr, [place] (Bolus) IV 00 Infuse Over: 1 hr, [...] Vancomycin 2017- No 2000 mg: Me moria - infuse l 04:10: over 2.5 [place] 00 hours For adult patients only: Round to nearest 250 mg per Medical Staff approval MEDICATION WASTE Product Size: 1000 mg Product Wasted: ___ mg Zosyn 2018-0 No 4.5 gm, Memoria 5-04 Route: l 04:10: IVPB, [place] 00 ONCE, Dosing Weight 127.273, kg, Priority: [...] gm, Memoria 5-04 Route: l 04:10: IVPB, [place] 00 ONCE, Dosing Weight 127.273, kg, Priority: STAT, Start date: 11/14/17 23:10:00 CDT, Stop date: 11/14/17 23:10:00 CDT, ABX Indication : Bacteremia Vancomycin 2018-0 No 2000 mg: Me moria 5-04 infuse l 04:10: over 2.5 [place] 00 hours For adult patients only: Round to nearest 250 mg per Medical Staff approval MEDICATION WASTE Product Size: 1000 mg Product Wasted: ___ mg Zosyn 2018-0 No 4.5 gm, Memoria 5-04 Route: l 04:10: IVPB, [place] 00 ONCE, Dosing Weight 127.273, kg, Priority: [...] Vancomycin 2018-0 No 2000 mg: Me moria 5- infuse l 04:10: over 2.5 [place] 00 hours For adult patients only: Round to nearest 250 mg per Medical Staff approval MEDICATION WASTE Product Size: 1000 mg Product Wasted: ___ mg Zosyn 2018-0 No 4.5 gm, Memoria 11-15 Route: l 04:10: IVPB, [place] 00 ONCE, Dosing Weight 127.273, kg, Priority: STAT, Start date: 11/14/17 23:10:00 CDT, Stop date: 11/14/17 23:10:00 CDT, ABX Indication : Bacteremia Vancomycin 2017-0 No 2000 mg: Me moria - infuse l 04:10: over 2.5 [place] 00 [...] Vancomycin 2018-0 No 2000 mg: Me moria -04 infuse [...] date: 12/14/17 22:38:00 CDT, 2.36, m2 normal 2017-0 No 1,000 mL, Memori a saline 0.9% 5-04 Rate: 75 l IV 1,000 mL 03:39: ml/hr, Herm philip 00 Infuse over: 13.3 hr, Route: IV, Dosing Weight 127.273 kg, Total Volume: 1,000, Start date: 11/14/17 22:39:00 CDT, Duration: 30 day, Stop date: 12/14/17 22:38:00 CDT, 2.36, m2 Acetaminoph No Notes: Max Memoria en 5-04 acetaminop l 02:56: hen 4000 [place] 00 mg/day (4 gm/day). (Same as: Tylenol [...] en 5-04 acetaminop l 02:56: hen 4000 [place] 00 mg/day (4 gm/day). (Same as: Tylenol Extra Strength) Acetaminoph No Notes: Max Memoria en 5-04 acetaminop l 02:56: hen 4000 [place] 00 mg/day (4 gm/day). (Same as: Tylenol Extra Strength) Acetaminoph No Notes: Max Memoria en 5-04 acetaminop l 02:56: hen 4000 [place] 00 mg/day (4 gm/day). (Same as: Tylenol Extra Strength) Acetaminoph No Notes: Max Memoria en 5-04 acetaminop l 02:56: hen 4000 [place] 00 mg/day (4 gm/day). (Same as: Tylenol [...] 1000 mg Product Wasted: _0__ mg Rocephin 0 No Notes: Memoria - (Same As: l 02:21: Rocephin). [place] 00 MEDICATION WASTE Product Size: 1000 mg Product Wasted: _0__ mg Rocephin 0 No Notes: Memoria - (Same As: l 02:21: Rocephin). [place] 00 MEDICATION WASTE Product Size: 1000 mg Product Wasted: _0__ mg Rocephin 0 No Notes: Memoria 5-04 (Same As: l 02:21: Rocephin). [place] 00 MEDICATION WASTE Product Size: 1000 mg Product Wasted: _0__ mg Rocephin 2018-0 No Notes: Memoria 5-04 (Same As: l 02:21: Rocephin). [place] 00 MEDICATION WASTE Product Size: 1000 mg Product Wasted: _0__ mg Rocephin 2018-0 No Notes: Memoria 5-04 (Same As: l 02:21: Rocephin). [place] 00 MEDICATION WASTE Product Size: 1000 mg [...] Memoria 5-04 Route: l 00:05: IVP, ONCE, [place] 00 Dosing Weight 127.273, kg, Priority: STAT, [...] Memoria 5-03 (Same as: l 23:14: Benadryl) [place] Benadryl No Notes: Memoria 5-03 (Same as: l 23:14: Benadryl) [place] Benadryl No Notes: Memoria 5-03 (Same as: [...] HCL/ACETAMI 2-20 mouth. ity of NOPHEN 10:03: [place] ([facility] Medical ORAL) Branch OXYCODONE 2016- Yes Take by Unive rs HCL/ACETAMI 2-20 mouth. ity of NOPHEN 04:03: [place] ([facility] ORAL) [place] OXYCODONE 2016-07 Yes Take by Unive rs HCL/ACETAMI 2-20 mouth. ity of NOPHEN 04:03: [place] ([facility] Medical ORAL) [place] OXYCODONE 2016-07 Yes Take by Unive rs HCL/ACETAMI 2-20 mouth. ity of NOPHEN 04:03: [place] ([facility] Medical ORAL) Branch OXYCODONE 2016- Yes Take by Unive rs HCL/ACETAMI 2-20 mouth. ity of NOPHEN 04:03: [place] ([facility] ORAL) Branch dicyclomine 2016- [...] (N/V) for up to 12 doses. proMETHazin Yes 25mg Take 1 Univ ers [...] Vomiting (N/V) for up to 12 doses. Collagenase Collagenase No 1{appli QD Collagenas 250 [...] Codeine #4 Codeine #4 - C HI [facility] Macrobid Macrobid Yes Na Gamble 1 capsule Common with food [facility] Pantoprazol Pantoprazol Yes Na Gamble 1 tablet Common e Sodium e Sodium [facility] Collagenase Collagenase Yes Na Gamble 1 Common applicatio Spirit n to - [facility] Pantoprazol Pantoprazol No 1{table QD Pantoprazo [...] #4 300-60 MG 300-60 MG 300-60 MG Immunizations Ordered Filled Immunization Date Status Comments [facility] e Immunization Name Name SARS-COV-2 COVID-19 2021-01-01 Completed Unive rsity of MODERNA, 6MO-5YRS, 00:00:00 [place] [facility] 0.25ML VACCINE Branch SARS-COV-2 COVID-19 2021-01-01 Completed Unive rsity of MODERNA, 6MO-5YRS, 00:00:00 [place] [facility] 0.25ML VACCINE Branch SARS-COV-2 COVID-19 2021-01-01 [...] 23:00:00 108 mm[Hg] Univer sity of pressure [facility] Diastolic blood 2022-11-09 23:00:00 64 mm[Hg] Unive rsity of pressure [facility] Heart rate 2022-11-09 23:00:00 106 /[facility] Respiratory rate 2022-11-09 23:00:00 16 /min Univ ersity of [facility] Oxygen saturation 2022-11-09 23:00:00 96 /min Uni versity of in Arterial blood [place] [facility] by Pulse oximetry Branch Body temperature 2022-11-09 19:25:00 36.78 Abi Univ ersity of [facility] Body height 2022-11-09 19:25:00 149.9 cm [facility] [place] [facility] Body weight 2022-11-09 19:25:00 127.007 kg [facility] [place] [facility] BMI 2022-11-09 19:25:00 56.55 kg/m2 [facility] [place] [facility] Systolic blood 2022-10-31 23:00:00 119 mm[Hg] Univer sity of pressure [place] [facility] Diastolic blood 2022-10-31 23:00:00 92 mm[Hg] [facility] Heart rate 2022-10-31 23:00:00 94 /min Universi ty of [facility] Branch Respiratory rate 2022-10-31 23:00:00 12 /min Univ ersity of [facility] Branch Oxygen saturation 2022-10-31 23:00:00 99 /min Uni versity of in Arterial blood [facility] by Pulse oximetry Branch Body temperature 2022-10-31 19:36:00 37 Abi Univ ersity of [facility] Branch Body height 2022-10-31 19:36:00 162.6 cm [facility] [place] [facility] Body weight 2022-10-31 19:36:00 117.935 kg [facility] [place] [facility] BMI 2022-10-31 19:36:00 44.63 kg/m2 [facility] [place] [facility] Systolic blood 2022-10-31 18:21:00 114 mm[Hg] Univer sity of pressure [place] [facility] Diastolic blood 2022-10-31 18:21:00 78 mm[Hg] Unive rsity of pressure [place] [facility] Heart rate 2022-10-31 18:21:00 103 /min [facility] [place] [facility] Body weight 2022-10-31 18:21:00 117.935 kg per patient [facility] [place] [facility] BMI 2022-10-31 18:21:00 44.63 kg/m2 [facility] [place] [facility] Systolic blood 2022-10-22 02:00:00 148 mm[Hg] Univer sity of pressure [place] [facility] Diastolic blood 2022-10-22 02:00:00 87 mm[Hg] Unive rsity of pressure [place] [facility] Heart rate 2022-10-22 02:00:00 92 /min [facility] [place] [facility] Respiratory rate 2022-10-22 02:00:00 18 /min [facility] [place] [facility] Oxygen saturation 2022-10-22 02:00:00 99 /min Uni versity of in Arterial blood [place] [facility] by Pulse oximetry Branch Body temperature 2022-10-21 22:01:00 36.72 Abi [facility] [place] [facility] Body weight 2022-10-21 22:01:00 118.389 kg [facility] [place] [facility] BMI 2022-10-21 22:01:00 44.80 kg/m2 [facility] [place] [facility] Systolic blood 2022-10-06 01:01:00 140 mm[Hg] Univer sity of [facility] Diastolic blood 2022-10-06 01:01:00 86 mm[Hg] Unive rsity of [facility] Heart rate 2022-10-06 01:01:00 103 /min [facility] [place] [facility] Respiratory rate 2022-10-06 01:01:00 19 /min [facility] [place] [facility] Oxygen saturation 2022-10-06 01:01:00 98 /min Uni versity of in Arterial blood [place] [facility] by Pulse oximetry Branch Body temperature 2022-10-05 20:37:00 36.78 Abi [facility] [place] [facility] Body height 2022-10-05 20:37:00 162.6 cm [facility] [place] [facility] Body weight 2022-10-05 20:37:00 118.389 kg [facility] [place] [facility] BMI 2022-10-05 20:37:00 44.80 kg/m2 [facility] [place] [facility] Systolic blood 2022-09-06 18:18:00 98 mm[Hg] Univer sity of pressure [place] [facility] Diastolic blood 2022-09-06 18:18:00 52 mm[Hg] Unive rsity of pressure [place] [facility] Heart rate 2022-09-06 18:18:00 93 /min [facility] [place] [facility] Body temperature 2022-09-06 18:18:00 36.72 Abi [facility] of [place] [facility] Respiratory rate 2022-09-06 18:18:00 16 /min Univ [facility] of [place] [facility] Oxygen saturation 2022-09-06 18:18:00 93 /min Uni versity of in Arterial blood [place] [facility]i efrain by Pulse oximetry Branch Body height 2022-09-04 09:34:00 149.9 cm [facility] [place] [facility] Body weight 2022-09-04 09:34:00 118.389 kg [facility] [place] [facility] BMI 2022-09-04 09:34:00 52.72 kg/m2 [facility] [place] [facility] Systolic blood 2022-09-05 21:30:00 129 mm[Hg] Univer sity of pressure [place] [facility] Diastolic blood 2022-09-05 21:30:00 73 mm[Hg] Unive rsity of pressure [place] [facility] Heart rate 2022-09-05 21:30:00 96 /min [facility] [place] [facility] Respiratory rate 2022-09-05 21:30:00 14 /min [facility] [place] [facility] Oxygen saturation 2022-09-05 21:30:00 95 /min Uni versity of in Arterial blood [place] [facility] by Pulse oximetry Branch Body temperature 2022-09-05 20:53:00 36.56 Abi [facility] of [place] [facility] Body height 2022-09-04 09:34:00 149.9 cm [facility] [place] [facility] Body weight 2022-09-04 09:34:00 118.389 kg [facility] [place] [facility] BMI 2022-09-04 09:34:00 52.72 kg/m2 [facility] [place] [facility] Systolic blood 2022-08-27 22:09:00 139 mm[Hg] Univer sity of pressure [place] [facility] Diastolic blood 2022-08-27 22:09:00 104 mm[Hg] Unive rsity of pressure [place] [facility] Heart rate 2022-08-27 22:09:00 93 /min [facility] [place] [facility] Respiratory rate 2022-08-27 22:09:00 18 /min Univ ers[facility] of [place] [facility] Oxygen saturation 2022-08-27 22:09:00 96 /min Uni versity of in Arterial blood [place] [facility] by Pulse oximetry Branch Body temperature 2022-08-27 19:53:00 36.67 Abi Univ ersity of [place] [facility] Systolic blood 2022-08-25 03:00:00 132 mm[Hg] Univer sity of pressure [place] [facility] Diastolic blood 2022-08-25 03:00:00 89 mm[Hg] Unive rsity of pressure [place] [facility] Heart rate 2022-08-25 03:00:00 91 /min [facility] [place] [facility] Respiratory rate 2022-08-25 03:00:00 18 /min Univ [facility] [place] [facility] Oxygen saturation 2022-08-25 03:00:00 96 /min Uni versity of in Arterial blood [place] [facility] by Pulse oximetry Branch Body temperature 2022-08-24 22:12:00 37.06 Abi [facility] [place] [facility] Body weight 2022-08-24 22:12:00 131.543 kg [facility] [place] [facility] [place] BMI 2022-08-24 22:12:00 58.57 kg/m2 [facility] [place] [facility] Systolic blood 2022-08-24 00:30:00 115 mm[Hg] Univer sity of pressure [place] [facility] Diastolic blood 2022-08-24 00:30:00 78 mm[Hg] Unive rsity of pressure [place] [facility] Heart rate 2022-08-24 00:30:00 96 /min [facility] [place] [facility] Respiratory rate 2022-08-24 00:30:00 18 /min [facility] [place] [facility] Oxygen saturation 2022-08-24 00:30:00 95 /min Uni versity of in Arterial blood [place] [facility] by Pulse oximetry Branch Body temperature 2022-08-23 21:14:00 35.89 Abi [facility] [place] [facility] Body height 2022-08-23 21:14:00 149.9 cm [facility] [place] [facility] Body weight 2022-08-23 21:14:00 127.461 kg [facility] [place] [facility] BMI 2022-08-23 21:14:00 56.76 kg/m2 [facility] [place] [facility] Systolic blood 2022-08-17 01:13:00 119 mm[Hg] Univer sity of pressure [place] [facility] Diastolic blood 2022-08-17 01:13:00 85 mm[Hg] Unive rsity of pressure [place] [facility] Heart rate 2022-08-17 01:13:00 97 /min [facility] [place] [facility] Body temperature 2022-08-17 01:13:00 36.17 Abi [facility] [place] [facility] Respiratory rate 2022-08-17 01:13:00 16 /min [facility] [place] [facility] Oxygen saturation 2022-08-17 01:13:00 94 /min Uni versity of in Arterial blood [facility] by Pulse oximetry Branch Body weight 2022-08-16 09:31:00 126.962 kg [facility] [place] [facility] BMI 2022-08-16 09:31:00 56.53 kg/m2 [facility] [place] [facility] Systolic blood 2022-07-05 18:59:00 125 mm[Hg] Univer sity of pressure [place] [facility] Diastolic blood 2022-07-05 18:59:00 84 mm[Hg] Unive rsity of pressure [place] [facility] Heart rate 2022-07-05 18:59:00 104 /min [facility] [place] [facility] Respiratory rate 2022-07-05 18:59:00 18 /min [facility] [place] [facility] Body weight 2022-07-05 18:59:00 127.007 kg [facility] [place] [facility] BMI 2022-07-05 18:59:00 56.55 kg/m2 [facility] [place] [facility] Oxygen saturation 2022-07-05 18:59:00 98 /min Uni versity of in Arterial blood [facility] by Pulse oximetry Branch Systolic blood 2022-06-25 19:02:00 142 mm[Hg] Univer sity of pressure [place] [facility] Diastolic blood 2022-06-25 19:02:00 99 mm[Hg] Unive rsity of pressure [place] [facility] Heart rate 2022-06-25 19:01:00 91 /min [facility] [place] [facility] Systolic blood 2022-05-21 18:00:00 136 mm[Hg] Univer sity of pressure [place] [facility] Diastolic blood 2022-05-21 18:00:00 92 mm[Hg] Unive rsity of pressure [place] [facility] Heart rate 2022-05-21 18:00:00 99 /min [facility] [place] [facility] Body temperature 2022-05-21 18:00:00 35.83 Abi [facility] [place] [facility] Respiratory rate 2022-05-21 18:00:00 18 /min [facility] [place] [facility] Oxygen saturation 2022-05-21 18:00:00 95 /min Uni versity of in Arterial blood [place] [facility] by Pulse oximetry Branch Body weight 2022-05-21 10:45:00 135.988 kg [facility] [place] [facility] BMI 2022-05-21 10:45:00 60.55 kg/m2 [facility] [place] [facility] Body height 2022-05-21 02:02:00 149.9 cm [facility] [place] [facility] Systolic blood 2022-05-15 01:11:00 166 mm[Hg] Univer sity of pressure [place] [facility] Diastolic blood 2022-05-15 01:11:00 93 mm[Hg] Unive rsity of [facility] Heart rate 2022-05-15 01:09:00 106 /min [facility] [place] [facility] Body temperature 2022-05-15 01:09:00 36.89 Abi [facility] of [place] [facility] Respiratory rate 2022-05-15 01:09:00 20 /min [facility] [place] [facility] Body weight 2022-05-15 01:09:00 127.007 kg [facility] [place] [facility] BMI 2022-05-15 01:09:00 56.55 kg/m2 [facility] [place] [facility] Oxygen saturation 2022-05-15 01:09:00 96 /min Uni versity of in Arterial blood [place] [facility] by Pulse oximetry Branch Systolic blood 2022-05-13 03:00:00 138 mm[Hg] Univer sity of pressure [place] [facility] Diastolic blood 2022-05-13 03:00:00 82 mm[Hg] Unive rsity of pressure [place] [facility] Heart rate 2022-05-13 03:00:00 102 /min [facility] [place] [facility] Respiratory rate 2022-05-13 03:00:00 20 /min [facility] [place] [facility] Oxygen saturation 2022-05-13 03:00:00 97 /min Uni versity of in Arterial blood [place] [facility] by Pulse oximetry Branch Body temperature 2022-05-13 00:13:00 36.5 Abi [facility] [place] [facility] Body weight 2022-05-13 00:13:00 132.904 kg [facility] [place] [facility] BMI 2022-05-13 00:13:00 59.18 kg/m2 [facility] [place] [facility] Systolic blood 2022-05-06 12:42:00 128 mm[Hg] Univer sity of pressure [place] [facility] Diastolic blood 2022-05-06 12:42:00 83 mm[Hg] Unive rsity of pressure [place] [facility] Heart rate 2022-05-06 12:42:00 111 /min [facility] [place] [facility] Body temperature 2022-05-06 12:42:00 35.94 Abi [facility] [place] [facility] Respiratory rate 2022-05-06 12:42:00 18 /min [facility] [place] [facility] Oxygen saturation 2022-05-06 12:42:00 95 /min Uni versity of in Arterial blood [place] [facility] by Pulse oximetry Branch Body weight 2022-05-06 10:22:00 132.995 kg [facility] [place] [facility] BMI 2022-05-06 10:22:00 59.22 kg/m2 [facility] [place] [facility] Body height 2022-05-04 11:00:00 149.9 cm [facility] [place] [facility] Systolic blood 2022-02-23 17:14:00 130 mm[Hg] Univer sity of pressure [place] [facility] Diastolic blood 2022-02-23 17:14:00 83 mm[Hg] Unive rsity of pressure [place] [facility] Heart rate 2022-02-23 17:14:00 100 /min [facility] [place] [facility] Body temperature 2022-02-23 17:14:00 36.72 Abi [facility] [place] [facility] Respiratory rate 2022-02-23 17:14:00 20 /min [facility] [place] [facility] Oxygen saturation 2022-02-23 17:14:00 96 /min Uni versity of in Arterial blood [place] [facility] by Pulse oximetry Branch Body height 2022-02-15 10:00:00 149.9 cm [facility] [place] [facility] Body weight 2022-02-15 10:00:00 123 kg [facility] [place] [facility] BMI 2022-02-15 10:00:00 54.77 kg/m2 [facility] [place] [facility] Systolic blood 2022-02-20 12:40:00 107 mm[Hg] Univer sity of pressure [place] [facility] Diastolic blood 2022-02-20 12:40:00 64 mm[Hg] Unive rsity of pressure [place] [facility] Heart rate 2022-02-20 12:40:00 99 /min [facility] [place] [facility] Body temperature 2022-02-20 12:40:00 36.83 Abi [facility] [place] [facility] Respiratory rate 2022-02-20 12:40:00 18 /min [facility] [place] [facility] Oxygen saturation 2022-02-20 12:40:00 95 /min Uni versity of in Arterial blood [facility] by Pulse oximetry Branch Body height 2022-02-15 10:00:00 149.9 cm [facility] [place] [facility] Body weight 2022-02-15 10:00:00 123 kg [facility] [place] [facility] BMI 2022-02-15 10:00:00 54.77 kg/m2 [facility] [place] [facility] Heart rate 2022-02-10 23:00:00 91 /min [facility] [place] [facility] Oxygen saturation 2022-02-10 23:00:00 95 /min Uni versity of in Arterial blood [facility] by Pulse oximetry Branch Systolic blood 2022-02-10 22:02:00 134 mm[Hg] Univer sity of pressure [place] [facility] Diastolic blood 2022-02-10 22:02:00 83 mm[Hg] Unive rsity of pressure [place] [facility] Body temperature 2022-02-10 21:00:00 36.83 Abi [facility] [place] [facility] Respiratory rate 2022-02-10 21:00:00 28 /min [facility] [place] [facility] Body weight 2022-02-10 09:00:00 134.99 kg [facility] [place] [facility] BMI 2022-02-10 09:00:00 60.08 kg/m2 [facility] [place] [facility] Body height 2022-02-07 22:22:00 149.9 cm [facility] [place] [facility] Systolic blood 2022-01-27 03:38:00 126 mm[Hg] Univer sity of pressure [place] [facility] Diastolic blood 2022-01-27 03:38:00 90 mm[Hg] Unive rsity of pressure [place] [facility] Heart rate 2022-01-27 03:38:00 97 /min [facility] [place] [facility] Respiratory rate 2022-01-27 03:38:00 18 /min [facility] [place] [facility] Oxygen saturation 2022-01-27 03:38:00 97 /min Uni versity of in Arterial blood [place] [facility] by Pulse oximetry Branch Body temperature 2022-01-26 22:09:00 36.94 Abi [facility] Body height 2022-01-26 22:09:00 149.9 cm [facility] Body weight 2022-01-26 22:09:00 127.007 kg [facility] BMI 2022-01-26 22:09:00 56.55 kg/m2 [facility] Systolic blood 2022-01-17 11:00:00 143 mm[Hg] [facility] Diastolic blood 2022-01-17 11:00:00 91 mm[Hg] [facility] Heart rate 2022-01-17 11:00:00 100 /min [facility] Respiratory rate 2022-01-17 11:00:00 16 /min [facility] Oxygen saturation 2022-01-17 11:00:00 96 /min [facility] [place] [facility] Body temperature 2022-01-17 09:55:00 36.89 Abi [facility] Body height 2022-01-17 09:55:00 149.9 cm [facility] Body weight 2022-01-17 09:55:00 127.007 kg [facility] BMI 2022-01-17 09:55:00 56.55 kg/m2 [facility] Systolic blood 2022-01-13 00:43:00 132 mm[Hg] [facility] Diastolic blood 2022-01-13 00:43:00 88 mm[Hg] [facility] Heart rate 2022-01-13 00:43:00 107 /min [facility] Body temperature 2022-01-13 00:43:00 36.33 Abi [facility] Respiratory rate 2022-01-13 00:43:00 18 /min [facility] Oxygen saturation 2022-01-13 00:43:00 95 /min [facility] in [facility] blood [place] [facility] Body height 2022-01-10 11:31:00 149.9 cm [facility] Body weight 2022-01-10 11:31:00 127.007 kg [facility] BMI 2022-01-10 11:31:00 56.55 kg/m2 [facility] Body temperature 2022-01-06 16:10:00 36.22 Abi [facility] Respiratory rate 2022-01-06 16:10:00 16 /min [facility] Oxygen saturation 2022-01-06 16:10:00 96 /min Uni versity of in Arterial blood [facility] by Pulse oximetry Branch Systolic blood 2022-01-06 16:10:00 127 mm[Hg] [facility] Diastolic blood 2022-01-06 16:10:00 84 mm[Hg] [facility] Heart rate 2022-01-06 16:10:00 98 /min [facility] Body weight 2022-01-06 08:54:00 133.494 kg [facility] BMI 2022-01-06 08:54:00 50.52 kg/m2 [facility] Body height 2022-01-05 03:01:00 162.6 cm [facility] Systolic blood 2021-12-22 17:03:00 132 mm[Hg] [facility] Diastolic blood 2021-12-22 17:03:00 90 mm[Hg] [facility] Heart rate 2021-12-22 17:03:00 78 /min [facility] Body temperature 2021-12-22 17:03:00 35.83 Abi [facility] Respiratory rate 2021-12-22 17:03:00 14 /min [facility] Oxygen saturation 2021-12-22 17:03:00 93 /min [facility] in [facility]ial [facility] [place] [facility] Body weight 2021-12-22 09:00:00 140.933 kg [facility] BMI 2021-12-22 09:00:00 62.75 kg/m2 [facility] Body height 2021-12-21 12:47:00 149.9 cm [facility] Systolic blood 2021-12-18 20:40:00 125 mm[Hg] [facility] [place] [facility] Diastolic blood 2021-12-18 20:40:00 75 mm[Hg] [facility] Heart rate 2021-12-18 20:40:00 99 /min [facility] Body temperature 2021-12-18 20:40:00 36.67 Abi [facility] Respiratory rate 2021-12-18 20:40:00 20 /min [facility] Oxygen saturation 2021-12-18 20:40:00 93 /min [facility] in [facility]ial [facility] [place] [facility] Body weight 2021-12-16 22:13:00 137.485 kg [facility] BMI 2021-12-16 22:13:00 61.22 kg/m2 [facility] Body height 2021-12-15 09:10:00 149.9 cm [facility] Systolic blood 2021-11-28 15:49:00 111 mm[Hg] [facility] [place] [facility] Diastolic blood 2021-11-28 15:49:00 76 mm[Hg] [facility] Heart rate 2021-11-28 15:49:00 109 /min [facility] Body temperature 2021-11-28 15:49:00 36.06 Abi [facility] Respiratory rate 2021-11-28 15:49:00 18 /min [facility] Oxygen saturation 2021-11-28 15:49:00 92 /min [facility] in [facility]ial blood [place] [facility] Body weight 2021-11-27 10:47:00 139.481 kg [facility] BMI 2021-11-27 10:47:00 62.11 kg/m2 [facility] Body height 2021-11-22 06:57:00 149.9 cm [facility] Systolic blood 2021-10-16 06:00:00 144 mm[Hg] [facility] Diastolic blood 2021-10-16 06:00:00 93 mm[Hg] [facility] Heart rate 2021-10-16 06:00:00 92 /min [facility] Respiratory rate 2021-10-16 06:00:00 22 /min [facility] Oxygen saturation 2021-10-16 04:00:00 94 /min [facility] in [facility]ial blood [place] [facility] Body temperature 2021-10-16 03:45:00 37.06 Abi [facility] Body height 2021-10-16 03:45:00 149.9 cm [facility] Body weight 2021-10-16 03:45:00 127.461 kg [facility] BMI 2021-10-16 03:45:00 56.76 kg/m2 [facility] Systolic blood 2021-09-29 03:18:00 113 mm[Hg] [facility] Diastolic blood 2021-09-29 03:18:00 85 mm[Hg] [facility] Heart rate 2021-09-29 03:18:00 96 /min [facility] Respiratory rate 2021-09-29 03:18:00 18 /min [facility] Oxygen saturation 2021-09-29 03:18:00 93 /min Uni vers[facility] in Arterial blood [place] [facility] Pulse oxim[facility] Body temperature 2021-09-29 01:01:16 36.89 Abi [facility] Body weight 2021-09-28 23:13:00 127.461 kg [facility] BMI 2021-09-28 23:13:00 56.76 kg/m2 [facility] Systolic blood 2021-08-08 21:53:00 142 mm[Hg] [facility] [place] [facility] Diastolic blood 2021-08-08 21:53:00 88 mm[Hg] [facility] Heart rate 2021-08-08 21:53:00 96 /min [facility] Body temperature 2021-08-08 21:53:00 36.06 Abi [facility] Respiratory rate 2021-08-08 21:53:00 18 /min [facility] Oxygen saturation 2021-08-08 21:53:00 96 /min Uni vers[facility] of in Arterial blood [place] [facility] Body weight 2021-08-08 09:48:00 138.801 kg [facility] BMI 2021-08-08 09:48:00 61.80 kg/m2 [facility] Body height 2021-08-03 10:27:00 149.9 cm [facility] Systolic blood 2021-08-01 03:50:00 142 mm[Hg] [facility] [place] [facility] Diastolic blood 2021-08-01 03:50:00 95 mm[Hg] [facility] Heart rate 2021-08-01 03:50:00 93 /min [facility] Respiratory rate 2021-08-01 03:50:00 17 /min [facility] Oxygen saturation 2021-08-01 03:50:00 98 /min Uni versity of in Arterial blood [facility] by Pulse oximetry Branch Body temperature 2021-07-31 20:39:00 36.5 Abi [facility] Body weight 2021-07-31 20:39:00 136.079 kg [facility] BMI 2021-07-31 20:39:00 60.59 kg/m2 [facility] Systolic blood 2021-07-30 01:46:00 134 mm[Hg] [facility] Diastolic blood 2021-07-30 01:46:00 100 mm[Hg] [facility] Heart rate 2021-07-30 01:46:00 102 /min [facility] Respiratory rate 2021-07-30 01:46:00 22 /min Univ ersity [facility] Oxygen saturation 2021-07-30 01:46:00 96 /min Uni versity of in Arterial blood [facility] by Pulse oximetry [facility] Body temperature 2021-07-29 20:52:00 36.67 [facility]i [facility] 2021-07-29 20:52:00 136.079 kg [facility] BMI 2021-07-29 20:52:00 60.59 kg/m2 [facility] height 2021-07-04 11:20:00 59 [in_i] [facility] weight 2021-07-04 11:20:00 350 [lb_av] [facility] temperature 2021-07-04 11:20:00 97.8 [degF] [facility] bmi 2021-07-04 11:20:00 70.68 kg/m2 [facility] oximetry 2021-07-04 11:20:00 94 % [facility] blood pressure 2021-07-04 11:20:00 160 mm[Hg] [facility] - systolic [facility] blood pressure 2021-07-04 11:20:00 80 mm[Hg] [facility] - diastolic [facility] Systolic blood 2021-06-07 23:30:00 175 mm[Hg] [facility] Diastolic blood 2021-06-07 23:30:00 107 mm[Hg] [facility] Heart rate 2021-06-07 23:30:00 81 /min [facility] Respiratory rate 2021-06-07 23:30:00 21 /min [facility] 2021-06-07 23:30:00 97 /min Uni versity of in Arterial blood [facility] by Pulse oximetry Branch Body weight 2021-06-07 21:55:00 136.079 kg [facility] BMI 2021-06-07 21:55:00 60.59 kg/m2 [facility] Body temperature 2021-06-07 21:55:00 37.44 Abi [facility] height 2021-04-11 13:00:00 59 [in_i] [facility] weight 2021-04-11 13:00:00 350 [lb_av] [facility] temperature 2021-04-11 13:00:00 96.8 [degF] [facility] bmi 2021-04-11 13:00:00 70.68 kg/m2 [facility] oximetry 2021-04-11 13:00:00 96 % [facility] blood pressure 2021-04-11 13:00:00 120 mm[Hg] [facility] systolic [facility] blood pressure 2021-04-11 13:00:00 77 mm[Hg] [facility] diastolic [facility] height 2021-01-31 14:20:00 59 [in_i] [facility] weight 2021-01-31 14:20:00 350 [lb_av] [facility] temperature 2021-01-31 14:20:00 95 [degF] [facility] bmi 2021-01-31 14:20:00 70.68 kg/m2 [facility] oximetry 2021-01-31 14:20:00 98 % [facility] blood pressure 2021-01-31 14:20:00 128 mm[Hg] [facility] systolic [facility] blood pressure 2021-01-31 14:20:00 82 mm[Hg] [facility] diastolic [facility] height 2021-01-03 13:40:00 59 [in_i] [facility] weight 2021-01-03 13:40:00 350 [lb_av] [facility] temperature 2021-01-03 13:40:00 97.4 [degF] [facility] bmi 2021-01-03 13:40:00 70.68 kg/m2 [facility] oximetry 2021-01-03 13:40:00 91 % [facility] blood pressure 2021-01-03 13:40:00 132 mm[Hg] [facility] - systolic [facility] blood pressure 2021-01-03 13:40:00 87 mm[Hg] [facility] - diastolic [facility] Systolic blood 2020-11-21 01:30:00 163 mm[Hg] [facility] Diastolic blood 2020-11-21 01:30:00 106 mm[Hg] [facility] Heart rate 2020-11-21 01:30:00 97 /min Universi ty [facility] Respiratory rate 2020-11-21 01:30:00 21 /min [facility] Oxygen saturation 2020-11-21 01:30:00 97 /min Uni [facility] in [place] blood [place] [facility] Pulse o[facility] Branch Body temperature 2020-11-20 23:27:00 36.83 Abi [facility] Body height 2020-11-20 23:27:00 149.9 cm [facility] Body weight 2020-11-20 23:27:00 136.079 kg [facility] BMI 2020-11-20 23:27:00 60.59 kg/m2 [facility] Systolic blood 2020-11-21 01:30:00 163 mm[Hg] [facility] Diastolic blood 2020-11-21 01:30:00 106 mm[Hg] [facility] Heart rate 2020-11-21 01:30:00 97 /min Universi ty [facility] Respiratory rate 2020-11-21 01:30:00 21 /min [facility] Oxygen saturation 2020-11-21 01:30:00 97 /min Uni [facility] in Arterial blood [place] [facility] Body temperature 2020-11-20 23:27:00 36.83 Abi [facility] height 2020-11-20 23:27:00 149.9 cm [facility] Body weight 2020-11-20 23:27:00 136.079 kg [facility] BMI 2020-11-20 23:27:00 60.59 kg/m2 [facility] Systolic blood 2022-02-19 16:49:00 127 mm[Hg] Univer sity of pressure [facility] Diastolic blood 2022-02-19 16:49:00 86 mm[Hg] Unive rsity of pressure [facility] Heart rate 2022-02-19 16:49:00 101 /min [facility] Body temperature 2022-02-19 16:49:[address] [facility] Respiratory rate 2022-02-19 16:49:00 20 /min [facility] Oxygen saturation 2022-02-19 16:49:00 95 /min Uni versity of in Arterial blood [facility] by Pulse oximetry Branch Body height 2022-02-15 10:00:00 149.9 cm [facility] Body weight 2022-02-15 10:00:00 123 kg [facility] BMI 2022-02-15 10:00:00 54.77 kg/m2 [facility] Temperature Oral 2021-10-25 21:12:00 98.0 F Erwin [facility] [place] (F) Heart Rate 2021-10-25 21:12:00 [facility] [place] Respitory Rate 2021-10-25 21:12:00 Mem[facility] Systolic (mm Hg) 2021-10-25 21:12:00 Erwin rial Jason Diastolic (mm Hg) 2021-10-25 21:12:00 Mem orial [facility] Heart Rate 2021-10-25 17:09:26 [facility] Respitory Rate 2021-10-25 17:09:26 [facility] Temperature Oral 2021-10-25 17:09:08 98.2 F Erwin rial Jason (F) Systolic (mm Hg) 2021-10-25 17:08:50 Erwin rial [place] Diastolic (mm Hg) 2021-10-25 17:08:50 Mem orial Jason Heart Rate 2021-10-25 17:08:50 [facility] [place] Respitory Rate 2021-10-25 13:07:22 [facility] [place] Temperature Oral 2021-10-25 13:07:04 97.7 F Erwin rial Jason (F) Systolic (mm Hg) 2021-10-25 13:06:57 Erwin rial Jason Diastolic (mm Hg) 2021-10-25 13:06:57 Mem orial [facility] Heart Rate 2021-10-23 10:00:21 [facility] Respitory Rate 2021-10-23 10:00:21 [facility] Temperature Oral 2021-10-23 09:59:28 97.5 F Erwin rial [place] (F) Systolic (mm Hg) 2021-10-23 09:58:18 Erwin [facility] [place] Diastolic (mm Hg) 2021-10-23 09:58:18 Mem orial [place] Heart Rate 2021-10-23 09:58:18 [facility] [place] Heart Rate 2021-10-23 04:58:41 [facility] [place] Respitory Rate 2021-10-23 04:58:41 Mem[facility] Temperature Oral 2021-10-23 04:58:34 97.2 F Erwin rial Jason (F) Systolic (mm Hg) 2021-10-23 04:57:48 Erwin [facility] [place] Diastolic (mm Hg) 2021-10-23 04:57:48 Mem orial [place] Respitory Rate 2021-10-23 00:54:28 Memori al [facility] Systolic (mm Hg) 2021-10-23 00:54:19 Erwin rial Jason Diastolic (mm Hg) 2021-10-23 00:54:19 Mem orial [facility] Temperature Oral 2021-10-23 00:53:24 98.1 F Erwin [facility] [place] (F) Height 2021-10-20 23:39:00 149.86 cm [facility] [place] Weight 2021-10-20 23:39:00 [facility] [place] BMI Calculated 2021-10-20 23:39:00 [facility] [place] Systolic (mm Hg) 2021-10-10 14:00:00 Erwin rial [facility] Diastolic (mm Hg) 2021-10-10 14:00:00 Mem orial [facility] Respitory Rate 2021-10-10 14:00:00 [facility] Respitory Rate 2021-10-10 13:00:00 [facility] Systolic (mm Hg) 2021-10-10 13:00:00 [facility]win [facility] [place] Diastolic (mm Hg) 2021-10-10 13:00:00 Mem orial [facility] Respitory Rate 2021-10-10 12:00:00 [facility] [place] Systolic (mm Hg) 2021-10-10 12:00:00 Erwin [facility] [place] Diastolic (mm Hg) 2021-10-10 12:00:00 Mem orial Jason Respitory Rate 2021-10-09 05:00:00 [facility] [place] Systolic (mm Hg) 2021-10-09 05:00:00 Erwin [facility] [place] Diastolic (mm Hg) 2021-10-09 05:00:00 Mem orial Jason Respitory Rate 2021-10-09 04:00:00 Mem[facility] al [facility] Systolic (mm Hg) 2021-10-09 04:00:00 Erwin rial Jason Diastolic (mm Hg) 2021-10-09 04:00:00 Mem orial [place] Respitory Rate 2021-10-09 03:00:00 Mem[facility] Systolic (mm Hg) 2021-10-09 03:00:00 Erwin [facility] [place] Diastolic (mm Hg) 2021-10-09 03:00:00 Mem orial [place] Heart Rate 2021-10-06 15:55:41 [facility] [place] Temperature Oral 2021-10-06 15:55:32 98.3 F Erwin rial Jason (F) Heart Rate 2021-10-06 15:54:37 [facility] Heart Rate 2021-10-06 12:20:12 [facility] Temperature Oral 2021-10-06 12:19:51 97.7 F Erwin [facility] [place] (F) Temperature Oral 2021-10-06 09:20:54 97.9 F Erwin rial Jason (F) Height 2021-10-06 06:18:00 149.86 cm [facility] Weight 2021-10-06 06:18:00 [facility] [place] BMI Calculated 2021-10-06 06:18:00 Mem[facility] [place] Respitory Rate 2018-05-22 17:30:00 Memori al [facility] Systolic (mm Hg) 2018-05-22 17:30:00 Erwin rial Jason Diastolic (mm Hg) 2018-05-22 17:30:00 Mem orial [facility] Temperature Oral 2018-05-22 17:30:00 98.4 F Erwin [facility] [place] (F) Temperature Oral 2018-05-22 16:23:00 98.6 F Erwin [facility] [place] (F) Systolic (mm Hg) 2018-05-22 16:23:00 Erwin rial Jason Diastolic (mm Hg) 2018-05-22 16:23:00 Mem orial [facility] Respitory Rate 2018-05-22 14:00:00 Memori al [facility] Systolic (mm Hg) 2018-05-22 14:00:00 Erwin [facility] [place] Diastolic (mm Hg) 2018-05-22 14:00:00 Mem orial Jason Respitory Rate 2018-05-22 13:30:00 [facility] [place] BMI Calculated 2018-05-22 10:16:00 Mem[facility] Height 2018-05-22 10:16:00 149.86 cm [facility] [place] Weight 2018-05-22 10:16:00 [facility] Heart Rate 2018-05-22 10:16:00 [facility] Temperature Oral 2018-05-22 10:16:00 97.9 F Erwin rial [facility] (F) Temperature Oral 2017-11-19 13:40:00 97.2 F Erwin rial [facility] (F) Systolic (mm Hg) 2017-11-19 13:40:00 Erwin [facility] [place] Diastolic (mm Hg) 2017-11-19 13:40:00 Mem orial Jason Heart Rate 2017-11-19 13:40:00 [facility] Respitory Rate 2017-11-19 13:40:00 Memori al [facility] Heart Rate 2017-11-19 05:24:00 [facility] [place] Systolic (mm Hg) 2017-11-19 05:24:00 Erwin [facility] [place] Diastolic (mm Hg) 2017-11-19 05:24:00 Mem orial [place] Respitory Rate 2017-11-19 05:24:00 [facility] [place] Temperature Oral 2017-11-19 05:24:00 98.1 F Erwin rial [place] (F) Respitory Rate 2017-11-19 01:15:00 Mem[facility] [place] Systolic (mm Hg) 2017-11-19 01:15:00 Erwin rial Jason Diastolic (mm Hg) 2017-11-19 01:15:00 Mem orial [place] Heart Rate 2017-11-19 01:15:00 [facility] [place] Temperature Oral 2017-11-19 01:15:00 98.1 F Erwin rial Jason (F) Weight 2017-11-18 14:00:00 [facility] [place] Weight 2017-11-17 14:00:00 [facility] [place] Weight 2017-11-15 14:00:00 [facility] BMI Calculated 2017-11-15 05:43:00 [facility] [place] Height 2017-11-15 05:43:00 162.56 cm [facility] [place] Height 2017-11-14 22:41:00 149.86 cm [facility] BMI Calculated 2017-11-14 22:41:00 [facility] [place] Procedures Procedure Date / Time Performing Clinician Source Performed POCT GLUCOSE(AGE >30DAYS) 2022-11-09 20:33:00 Suzanne Blankenship [facility] COMP. METABOLIC PANEL 2022-11-09 20:32:00 Suzanne Blankenship [facility] ([id number] CBC WITH DIFF 2022-11-09 20:32:00 [facility] URINALYSIS 2022-11-09 20:32[facility] 2022-11-07 05:01:00 Doctor Unassigned, No [facility] POCT GLUCOSE (AUTOMATED) 2022-10-31 22:41:00 Jennifer Olivera [facility] LIPASE 2022-10-31 21:39:00 Jennifer Olivera [facility] COMP. METABOLIC PANEL 2022-10-31 21:39:00 Jennifer Olivera [facility] ([id number] AC PANEL 21 + LACTIC ACID 2022-10-31 20:49:00 Jennifer Olivera [facility] CBC WITH DIFF 2022-10-31 20:48:00 Jennifer Olivera [facility] URINALYSIS 2022-10-31 20:48:00 Jennifer Olivera [facility] POCT GLUCOSE (AUTOMATED) 2022-10-31 19:37:00 Jennifer Olivera [facility] POCT GLUCOSE (AUTOMATED) 2022-10-22 02:38:00 [facility]22-10-21 23:37:00 Lynette Fonseca [facility] COMP. METABOLIC PANEL 2022-10-21 23:12:00 Lynette Fonseca [facility] ([id number] CBC WITH DIFF 2022-10-21 23:12:00 Lynette Fonseca [facility] AC PANEL 20 + LACTIC ACID 2022-10-21 23:10:00 [facility] 2022-10-12 19:14:00 Martina [facility] XR SKULL <4 VW 2022-10-06 00:48:18 Madonna Helms [facility] POCT GLUCOSE (AUTOMATED) 2022-10-06 00:14:00 Madonna Helms [facility] URINALYSIS 2022-10-05 23:13:00 Madonna Helms [facility] XR CHEST 1 VW 2022-10-05 22:46:00 Madonna Helms [facility] POCT GLUCOSE (AUTOMATED) 2022-10-05 22:34:00 Madonna Helms [facility] CT ANGIOGRAM 2022-10-05 22:21:20 Madonna Helms [facility] ABDOMEN/PELVIS [facility] LACTIC ACID WHOLE BLOOD 2022-10-05 21:48:00 Madonna Helms [facility] LIPASE 2022-10-05 21:47:00 Madonna Helms [facility] MAGNESIUM 2022-10-05 21:47:00 Madonna Helms [facility] COMP. METABOLIC PANEL 2022-10-05 21:47:00 Madonna Helms Un [facility] ([id number]) Medical Branch CBC WITH DIFF 2022-10-05 21:47:00 Madonna Helms [facility] COVID-19 (ID NOW RAPID 2022-10-05 21:47:00 Madonna Helms [facility] TESTING) [facility] POCT GLUCOSE (AUTOMATED) 2022-09-06 18:22:[address] [facility] POCT GLUCOSE (AUTOMATED) 2022-09-06 18:22:[address] [facility] POCT GLUCOSE (AUTOMATED) 2022-09-06 13:41:[address] [facility] POCT GLUCOSE (AUTOMATED) 2022-09-06 13:41:[address] [facility] BASIC METABOLIC PANEL 2022-09-06 11:02:00 Ab Wolff [facility] (NA, K, CL, CO2, GLUCOSE, Medica l Branch BUN, CREATININE, CA) CBC WITHOUT DIFF 2022-09-06 11:02:00 Ab Wolff [facility] BASIC METABOLIC PANEL 2022-09-06 11:02:00 Ab Wolff [facility] (NA, K, CL, CO2, GLUCOSE, Medica l Branch BUN, CREATININE, CA) CBC WITHOUT DIFF 2022-09-06 11:02:00 Ab Wolff [facility] POCT GLUCOSE (AUTOMATED) 2022-09-06 02:49:[address] [facility] [facility] POCT GLUCOSE (AUTOMATED) 2022-09-06 02:49:[address] [facility] POCT GLUCOSE (AUTOMATED) 2022-09-05 22:57:00 [facility] 2022-09-05 22:57:00 [facility]) 2022-09-05 21:25:00 [facility] ([facility]OMATED) 2022-09-05 21:25:[address] [facility] TISSUE 2022-09-05 20:31:00 New [facility] CULTURE(AEROBIC/ANAEROBIC [facility] [place] ) FUNGUS (ROUTINE) CULTURE 2022-09-05 20:31:00 Mejia Villavicencio [facility] TISSUE 2022-09-05 20:31:00 New [facility] CULTURE(AEROBIC/ANAEROBIC [facility] [place] ) FUNGUS (ROUTINE) CULTURE 2022-09-05 20:31:00 Mejia Villavicencio [facility] WOUND DEBRIDEMENT 2022-09-05 19:57:00 Saud [facility] WOUND DEBRIDEMENT 2022-09-05 19:57:00 Mejia Villavicencio [facility] POCT GLUCOSE (AUTOMATED) 2022-09-05 18:17:[address] [facility] POCT GLUCOSE (AUTOMATED) 2022-09-05 18:17:[address] [facility] POCT GLUCOSE (AUTOMATED) 2022-09-05 15:20:[address] [facility] POCT GLUCOSE (AUTOMATED) 2022-09-05 15:20:[address] [facility] POCT GLUCOSE (AUTOMATED) 2022-09-05 03:10:[address] [facility] POCT GLUCOSE (AUTOMATED) 2022-09-05 03:10:[address] [facility] POCT GLUCOSE (AUTOMATED) 2022-09-04 22:42:[address] [facility] POCT GLUCOSE (AUTOMATED) 2022-09-04 22:42:[address] [facility] POCT GLUCOSE (AUTOMATED) 2022-09-04 17:34:00 Dontae Talley [facility] POCT GLUCOSE (AUTOMATED) 2022-09-04 17:34:00 Dontae Talley [facility] POCT GLUCOSE (AUTOMATED) 2022-09-04 16:41:00 Dontae Talley [facility] POCT GLUCOSE (AUTOMATED) 2022-09-04 16:41:00 Dontae Talley [facility] POCT GLUCOSE (AUTOMATED) 2022-09-04 13:15:00 [facility] 2022-09-04 13:15:00 TalleyDontae lynn [facility] POCT GLUCOSE (AUTOMATED) 2022-09-04 07:38:00 [facility] PO[facility]UCOSE (AUTOMATED) 2022-09-04 07:38:00 [facility] POCT GLUCOSE (AUTOMATED) 2022-09-04 06:43:00 [facility] POCT GLUCOSE (AUTOMATED) 2022-09-04 06:43:00 [facility] BASIC METABOLIC PANEL 2022-09-04 06:03:00 Diomedes Joseph [facility] (NA, K, CL, CO2, GLUCOSE, Medica l Branch BUN, CREATININE, CA) BASIC METABOLIC PANEL 2022-09-04 06:03:00 Diomedes Joseph [facility] (NA, K, CL, CO2, GLUCOSE, Medica l Branch BUN, CREATININE, CA) POCT GLUCOSE (AUTOMATED) 2022-09-04 05:32:00 [facility] POCT GLUCOSE (AUTOMATED) 2022-09-04 05:32:00 [facility] URINE CULTURE 2022-09-04 04:20:00 Opal [facility] URINE CULTURE 2022-09-04 04:20:00 Opal [facility] AC PANEL 21 + LACTIC ACID 2022-09-04 04:18:00 [place], Kwadwo r [facility] AC PANEL 21 + LACTIC ACID 2022-09-04 04:18:00 Kwadwo Joseph [facility] BASIC METABOLIC PANEL 2022-09-04 02:48:00 Diomedes Joseph [facility] (NA, K, CL, CO2, GLUCOSE, Medica l Branch BUN, CREATININE, CA) CBC WITH DIFF 2022-09-04 02:48:00 Opal [facility] URINALYSIS 2022-09-04 02:48:00 [place], [facility] BASIC METABOLIC PANEL 2022-09-04 02:48:00 Diomedes Joseph [facility] (NA, K, CL, CO2, GLUCOSE, Medica l Branch BUN, CREATININE, CA) CBC WITH DIFF 2022-09-04 02:48:00 Opal [facility] URINALYSIS 2022-09-04 02:48:00 Opal [facility] POCT GLUCOSE (AUTOMATED) 2022-08-25 02:37:00 Madonna Helms [facility] LIPASE 2022-08-25 00:31:00 Madonna Helms [facility] COMP. METABOLIC PANEL 2022-08-25 00:31:00 Madonna Helms [facility] ([id number]) [facility] URINALYSIS 2022-08-24 23:49:00 Madonna Helms [facility] CBC WITH DIFF 2022-08-24 23:43:00 Madonna Helms [facility] AC PANEL 21 + LACTIC ACID 2022-08-24 00:00:00 Susan Adhikari [facility] POCT GLUCOSE (AUTOMATED) 2022-08-23 23:07:00 Susan Adhikari [facility] POCT GLUCOSE (AUTOMATED) 2022-08-23 22:13:00 Susan Adhikari [facility] MAGNESIUM 2022-08-23 21:40:00 Susan Adhikari [facility] COMP. METABOLIC PANEL 2022-08-23 21:40:00 Susan Adhikari [facility] ([id number]) [facility] CBC WITH DIFF 2022-08-23 21:40:00 Susan Adhikari [facility] POCT GLUCOSE (AUTOMATED) 2022-08-23 21:13:00 Susan Adhikari [facility] POCT GLUCOSE (AUTOMATED) 2022-08-16 23:54:00 Courtney Mendes [facility] POCT GLUCOSE (AUTOMATED) 2022-08-16 17:33:00 Courtney Mendes [facility] POCT GLUCOSE (AUTOMATED) 2022-08-16 13:57:00 Courtney Mendes [facility] PHOSPHORUS 2022-08-16 11:34:00 Yolis jennifer [facility] MAGNESIUM 2022-08-16 11:34:00 Yolis [facility] FREE T4 2022-08-16 11:34:00 Yolis jennifer [facility] THYROID STIMULATING 2022-08-16 11:34:00 Courtney Mendes [facility] HORMONE [facility] COMP. METABOLIC PANEL 2022-08-16 11:34:00 Courtney Mendes [facility] ([id number]) [facility] LIPID PANEL ([id number])(TOTAL 2022-08-16 11:34:00 Courtney Mendes [facility] CHOLESTEROL, [facility] TRIGLYCERIDES, HDL) CBC WITH DIFF 2022-08-16 11:34:00 Courtney Mendes [facility] GLYCOSYLATED HEMOGLOBIN 2022-08-16 11:34:00 Yolis jennifer [facility] (A1C) [facility] N-TERMINAL PRO-BNP 2022-08-16 11:34:00 Courtney Mendes [facility] FREE T3 2022-08-16 11:34:00 Yolis jennifer [facility] POCT GLUCOSE (AUTOMATED) 2022-08-16 09:33:00 Yolis jennifer [facility] POCT GLUCOSE (AUTOMATED) 2022-08-16 02:19:00 Jennifer Olivera [facility] POCT GLUCOSE (AUTOMATED) 2022-08-16 01:09:00 Jennifer Olivera [facility] POCT GLUCOSE (AUTOMATED) 2022-08-15 23:44:00 Jennifer Olivera [facility] CT ABDOMEN PELVIS W 2022-08-15 23:40:[address] [facility] URINALYSIS 2022-08-15 22:21:00 Jennifer Olivera [facility] POCT GLUCOSE (AUTOMATED) 2022-08-15 22:19:00 Jennifer Olivera [facility] AC PANEL 20 + LACTIC ACID 2022-08-15 20:54:00 [facility] 2022-08-15 20:41:00 Jennifer Olivera [facility] TROPONIN I 2022-08-15 20:41:00 Jennifer Olivera [facility] COMP. METABOLIC PANEL 2022-08-15 20:41:00 Jennifer Olivera [facility] ([id number]) [facility] CBC WITH DIFF 2022-08-15 20:41:00 Jennifer Olivera [facility] N-TERMINAL PRO-BNP 2022-08-15 20:41:00 Jennifer Olivera [facility] HB ECG ROUTINE & RHYTHM 2022-08-15 20:37:16 Jennifer Olivera [facility] EMERGENCY DEPARTMENT 2022-08-15 06:01:00 Doctor Unassigned, No [facility] PATIENT QUESTIONNAIRE 2022-07-05 06:01:00 Doctor Unassigned, No [facility] POCT HEMOGLOBIN A1C TEST 2022-06-25 19:04:00 Yudi Holloway [facility] POCT GLUCOSE (AUTOMATED) 2022-05-21 22:58:00 Negar Guardado [facility] POCT GLUCOSE (AUTOMATED) 2022-05-21 18:00:00 Negar Guardado [facility] POCT GLUCOSE (AUTOMATED) 2022-05-21 13:46:00 Negar Guardado [facility] BASIC METABOLIC PANEL 2022-05-21 10:49:00 Kendall Connolly [facility] (NA, K, CL, CO2, GLUCOSE, Medica l Branch BUN, CREATININE, CA) CBC WITH DIFF 2022-05-21 10:49:00 Kendall Connolly [place] [facility] LACTIC ACID WHOLE BLOOD 2022-05-21 02:31:[address] [facility] MRSA / MSSA SCREEN BY 2022-05-21 02:31:00 Negar Guardado [facility] PCR, [facility] POCT GLUCOSE (AUTOMATED) 2022-05-21 02:09:00 Negar Guardado [facility] BLOOD CULTURE SCREEN 2022-05-21 00:35:[address] [facility] URINALYSIS 2022-05-20 23:26:00 Lynette Fonseca [facility] BLOOD CULTURE SCREEN 2022-05-20 23:15:[address] [facility] COMP. METABOLIC PANEL 2022-05-20 23:08:00 Lynette Fonseca [facility] ([id number]) [facility] CBC WITH DIFF 2022-05-20 23:08:00 Lynette Fonseca [facility] LACTIC ACID WHOLE BLOOD 2022-05-20 23:07:00 Lynette Fonseca [facility] CT ABDOMEN PELVIS W 2022-05-13 02:06:00 Carmelita Serna [facility] CONTRAST [facility] LIPASE 2022-05-13 00:59:00 Carmelita Serna [facility] COMP. METABOLIC PANEL 2022-05-13 00:59:00 Carmelita Serna [facility] ([id number]) [facility] CBC WITH DIFF 2022-05-13 00:59:00 Carmelita Serna [facility] URINALYSIS 2022-05-13 00:49:00 Carmelita Serna [facility] POCT GLUCOSE (AUTOMATED) 2022-05-06 13:14:00 Kaylee Argueta [facility] POCT GLUCOSE (AUTOMATED) 2022-05-06 01:14:00 Kaylee Argueta [facility] POCT GLUCOSE (AUTOMATED) 2022-05-05 21:19:00 [facility] BASIC METABOLIC PANEL 2022-05-05 11:23:00 Kosta [facility] (NA, K, CL, CO2, GLUCOSE, Medica l Branch BUN, CREATININE, CA) CBC WITH DIFF 2022-05-05 11:16:00 Kosta [facility] o f [facility] MRSA / MSSA SCREEN BY 2022-05-05 01:13:00 Negar Guardado [facility]) 2022-05-05 01:11:00 [facility] POCT GLUCOSE (AUTOMATED) 2022-05-04 21:32:00 [facility] URINE CULTURE 2022-05-04 16:17:00 Kosta [facility] o [facility] POCT GLUCOSE (AUTOMATED) 2022-05-04 16:08:[address] [facility] POCT GLUCOSE (AUTOMATED) 2022-05-04 12:43:[address] [facility] ASPIRATE OR ABSCESS 2022-05-04 07:35:00 Opal [facility] CULTURE(AEROBIC/ANAEROBIC Medica l Branch ) URINALYSIS 2022-05-04 07:32:00 Opal [facility] CT ABDOMEN PELVIS W 2022-05-04 07:25:15 Opal [facility] CONTRAST [facility] BLOOD CULTURE SCREEN 2022-05-04 06:01:00 Diomedes Joseph [facility] LIPASE 2022-05-04 06:01:00 [facility] COMP. METABOLIC PANEL 2022-05-04 06:01:00 Diomedes Joseph [facility] ([id number]) [facility] CBC WITH DIFF 2022-05-04 06:01:00 Diomedes Joseph [facility] POCT GLUCOSE (AUTOMATED) 2022-02-23 18:34:00 Victorino Conroy [facility] POCT GLUCOSE (AUTOMATED) 2022-02-23 14:37:00 Victorino Conroy [facility] BASIC METABOLIC PANEL 2022-02-23 13:22:00 [facility] (NA, K, CL, CO2, GLUCOSE, Medica l Branch BUN, CREATININE, CA) CBC WITH DIFF 2022-02-23 13:22:00 [facility] POCT GLUCOSE (AUTOMATED) 2022-02-23 10:56:00 Victorino Conroy [facility] POCT GLUCOSE (AUTOMATED) 2022-02-23 05:46:00 Victorino Conroy [facility] POCT GLUCOSE (AUTOMATED) 2022-02-23 02:17:00 Victorino Conroy [facility] POCT GLUCOSE (AUTOMATED) 2022-02-22 23:13:00 Victorino Conroy [facility] POCT GLUCOSE (AUTOMATED) 2022-02-22 18:22:00 Victorino Conroy [facility] POCT GLUCOSE (AUTOMATED) 2022-02-22 14:56:00 Victorino Conroy [facility] BASIC METABOLIC PANEL 2022-02-22 10:03:00 Lorin Wynnnathan [facility] (NA, K, CL, CO2, GLUCOSE, Medica l Branch BUN, CREATININE, CA) CBC WITH DIFF 2022-02-22 10:03:00 [facility] POCT GLUCOSE (AUTOMATED) 2022-02-22 02:18:00 Victorino Conroy [facility] POCT GLUCOSE (AUTOMATED) 2022-02-21 22:26:00 Victorino Conroy [facility] POCT GLUCOSE (AUTOMATED) 2022-02-21 18:57:00 Victorino Conroy [facility] POCT GLUCOSE (AUTOMATED) 2022-02-21 18:57:00 Victorino Conroy [facility] US DUPLEX VENOUS ARMS 2022-02-21 17:28:45 Kingsley [facility] BILATERAL - BY VASCULAR [facility] LAB US DUPLEX VENOUS ARMS 2022-02-21 17:28:45 Kingsley Brooke [facility] BILATERAL - BY VASCULAR [facility] LAB POCT GLUCOSE (AUTOMATED) 2022-02-21 15:20:00 [facility]) 2022-02-21 15:20:00 Victorino Conroy [facility] MAGNESIUM 2022-02-21 10:19:00 Ayo [facility] BASIC METABOLIC PANEL 2022-02-21 10:19:00 Ayo [facility] (NA, K, CL, CO2, GLUCOSE, [place] [facility] BUN, CREATININE, CA) CBC WITH DIFF 2022-02-21 10:19:00 Ayo [facility] MAGNESIUM 2022-02-21 10:19:00 Ayo [facility] BASIC METABOLIC PANEL 2022-02-21 10:19:00 Ayo [facility] (NA, K, CL, CO2, GLUCOSE, [place] [facility] BUN, CREATININE, CA) CBC WITH DIFF 2022-02-21 10:19:00 Ayo [facility] POCT GLUCOSE (AUTOMATED) 2022-02-21 02:44:00 Victorino Conroy [facility] POCT GLUCOSE (AUTOMATED) 2022-02-21 02:44:00 Victorino Conroy [facility] POCT GLUCOSE (AUTOMATED) 2022-02-20 22:02:00 Victorino Conroy [facility] POCT GLUCOSE (AUTOMATED) 2022-02-20 22:02:00 Victorino Conroy [facility] FUNGUS (ROUTINE) CULTURE 2022-02-20 17:03:00 Chalino Paul [facility] [place] TISSUE 2022-02-20 17:03:00 Sarah Beth Paul [facility] CULTURE(AEROBIC/ANAEROBIC A Medica l Branch ) FUNGUS (ROUTINE) CULTURE 2022-02-20 17:03:00 Chalino Paul [facility] TISSUE 2022-02-20 17:03:00 Sarah Beth Paul [facility] CULTURE(AEROBIC/ANAEROBIC A Medica l Branch ) FUNGUS (ROUTINE) CULTURE 2022-02-20 17:00:00 Chalino Paul [facility] TISSUE 2022-02-20 17:00:00 Sarah Beth Paul [facility] CULTURE(AEROBIC/ANAEROBIC A Medica l Branch ) FUNGUS (ROUTINE) CULTURE 2022-02-20 17:00:00 Chalino Paul [facility] TISSUE 2022-02-20 17:00:00 Sarah Beth Paul [facility] CULTURE(AEROBIC/ANAEROBIC A Medica l Branch ) FUNGUS (ROUTINE) CULTURE 2022-02-20 16:59:00 Chalino Paul [facility] TISSUE 2022-02-20 16:59:00 Sarah Beth Paul [facility] CULTURE(AEROBIC/ANAEROBIC A Medica l Branch ) FUNGUS (ROUTINE) CULTURE 2022-02-20 16:59:00 Chalino Paul [facility] TISSUE 2022-02-20 16:59:00 Sarah Beth Paul [facility] CULTURE(AEROBIC/ANAEROBIC A Medica l Branch ) FOOT DEBRIDEMENT 2022-02-20 16:11:00 Sarah Beth Paul [facility] FOOT DEBRIDEMENT 2022-02-20 16:11:00 Sarah Beth Paul [facility] COVID-19 (ID NOW RAPID 2022-02-20 14:36:00 David Wynn [facility] TESTING) Medical Branch LAB ONLY COVID 2022-02-20 14:36:00 David Wynn [facility] INTERPRETATION [facility] COVID-19 (ID NOW RAPID 2022-02-20 14:36:00 David Wynn [facility] TESTING) Medical Branch LAB ONLY COVID 2022-02-20 14:36:00 David Wynn [facility] POCT GLUCOSE (AUTOMATED) 2022-02-20 14:07:00 Bret Martinez [facility] POCT GLUCOSE (AUTOMATED) 2022-02-20 14:07:00 Bret Martinez Uni [facility] HB ECG ROUTINE & RHYTHM 2022-02-20 13:27:17 Concetta Jackson [facility] CBC WITH DIFF 2022-02-20 10:55:00 Ayo [facility] CBC WITH DIFF 2022-02-20 10:55:00 Ayo [facility] MAGNESIUM 2022-02-20 10:40:00 Ayo [facility] BASIC METABOLIC PANEL 2022-02-20 10:40:00 Ayo [facility] (NA, K, CL, CO2, GLUCOSE, [place] [facility] BUN, CREATININE, CA) COVID-19 (ID NOW RAPID 2022-02-20 10:40:[address] [facility] TESTING) Medical Branch LAB ONLY COVID 2022-02-20 10:40:00 [facility] INTERPRETATION Medical Branch MAGNESIUM 2022-02-20 10:40:00 Ayo [facility] BASIC METABOLIC PANEL 2022-02-20 10:40:00 Negar Rollins [facility] (NA, K, CL, CO2, GLUCOSE, [place] [facility] BUN, CREATININE, CA) COVID-19 (ID NOW RAPID 2022-02-20 10:40:[address] [facility] TESTING) Medical Branch LAB ONLY COVID 2022-02-20 10:40:[address] [facility] POCT GLUCOSE (AUTOMATED) 2022-02-20 02:29:00 Bret Martinez Uni [facility] POCT GLUCOSE (AUTOMATED) 2022-02-20 02:29:00 Bret Martinez Uni [facility] POCT GLUCOSE (AUTOMATED) 2022-02-19 23:39:00 Bret Martinez Uni [facility] POCT GLUCOSE (AUTOMATED) 2022-02-19 23:39:00 Bret Martinez Uni [facility] POCT GLUCOSE (AUTOMATED) 2022-02-19 17:10:00 Bret Martinez [facility] POCT GLUCOSE (AUTOMATED) 2022-02-19 17:10:00 Bret Martinez Uni [facility] POCT GLUCOSE (AUTOMATED) 2022-02-19 17:10:00 Bret Martinez Uni [facility] POCT GLUCOSE (AUTOMATED) 2022-02-19 15:54:00 Bret Martinez Uni [facility] POCT GLUCOSE (AUTOMATED) 2022-02-19 15:54:00 Bret Martinez Uni [facility] POCT GLUCOSE (AUTOMATED) 2022-02-19 15:54:00 [facility] SEDIMENTATION RATE 2022-02-19 08:36:00 [facility] BASIC METABOLIC PANEL 2022-02-19 08:36:00 [facility] ([facility], K, CL, CO2, GLUCOSE, Medica l Branch BUN, CREATININE, CA) CBC WITH DIFF 2022-02-19 08:36:00 Jose A [facility] MAGNESIUM 2022-02-19 08:36:00 Jose A [facility] MAGNESIUM 2022-02-19 08:36:00 Jose A [facility] BASIC METABOLIC PANEL 2022-02-19 08:36:00 Jose A [facility] (NA, K, CL, CO2, GLUCOSE, Medica l Branch BUN, CREATININE, CA) SEDIMENTATION RATE 2022-02-19 08:36:00 [facility] CBC WITH DIFF 2022-02-19 08:36:00 Jose A [facility] MAGNESIUM 2022-02-19 08:36:00 Jose A [facility] BASIC METABOLIC PANEL 2022-02-19 08:36:00 [facility] (NA, K, CL, CO2, GLUCOSE, Medica l Branch BUN, CREATININE, CA) SEDIMENTATION RATE 2022-02-19 08:36:00 Indira Perry [facility] CBC WITH DIFF 2022-02-19 08:36:00 Jose A [facility] POCT GLUCOSE (AUTOMATED) 2022-02-19 00:57:00 Vic Mcdonald B [facility] POCT GLUCOSE (AUTOMATED) 2022-02-19 00:57:00 Vic Mcdonald B [facility] POCT GLUCOSE (AUTOMATED) 2022-02-19 00:57:00 Vic Mcdonald B [facility] POCT GLUCOSE (AUTOMATED) 2022-02-18 21:26:00 Vic Mcdonald B [facility] POCT GLUCOSE (AUTOMATED) 2022-02-18 21:26:00 Vic Mcdonald B [facility] POCT GLUCOSE (AUTOMATED) 2022-02-18 21:26:00 Vic Mcdonald B [facility] POCT GLUCOSE (AUTOMATED) 2022-02-18 16:47:00 Vic Mcdonald B [facility] POCT GLUCOSE (AUTOMATED) 2022-02-18 16:47:00 Vic Mcdonald B [facility] POCT GLUCOSE (AUTOMATED) 2022-02-18 16:47:00 Vic Mcdonald B [facility] BASIC METABOLIC PANEL 2022-02-18 14:21:00 Nai Naranjo [facility] (NA, K, CL, CO2, GLUCOSE, Medica l Branch BUN, CREATININE, CA) C-REACTIVE PROTEIN 2022-02-18 14:21:00 [facility] C-REACTIVE PROTEIN 2022-02-18 14:21:00 [facility] BASIC METABOLIC PANEL 2022-02-18 14:21:00 Jose A [facility] (NA, K, CL, CO2, GLUCOSE, Medica l Branch BUN, CREATININE, CA) C-REACTIVE PROTEIN 2022-02-18 14:21:00 [facility] BASIC METABOLIC PANEL 2022-02-18 14:21:00 Nai Naranjo [facility] (NA, K, CL, CO2, GLUCOSE, Medica l Branch BUN, CREATININE, CA) POCT GLUCOSE (AUTOMATED) 2022-02-18 12:34:00 Fiorella Mcdonaldy B [facility] POCT GLUCOSE (AUTOMATED) 2022-02-18 12:34:00 DaytonFiorellay B [facility] POCT GLUCOSE (AUTOMATED) 2022-02-18 12:34:00 Fiorella Mcdonaldy B [facility] POCT GLUCOSE (AUTOMATED) 2022-02-18 01:28:00 [place] Vic B [facility] POCT GLUCOSE (AUTOMATED) 2022-02-18 01:28:00 DaytonFiorellay B [facility] POCT GLUCOSE (AUTOMATED) 2022-02-18 01:28:00 Harry Vic B [facility] POCT GLUCOSE (AUTOMATED) 2022-02-17 21:13:00 DaytonFiroellay B [facility] POCT GLUCOSE (AUTOMATED) 2022-02-17 21:13:00 Harry Vic B [facility] POCT GLUCOSE (AUTOMATED) 2022-02-17 21:13:00 Harry Vic B [facility] POCT GLUCOSE (AUTOMATED) 2022-02-17 16:39:00 [place], Vic B [facility] POCT GLUCOSE (AUTOMATED) 2022-02-17 16:39:00 Harry Vic B [facility] POCT GLUCOSE (AUTOMATED) 2022-02-17 16:39:00 [place], Vic B [facility] POCT GLUCOSE (AUTOMATED) 2022-02-17 13:11:00 Vic Mcdonald [facility] POCT GLUCOSE (AUTOMATED) 2022-02-17 13:11:00 Vic Mcdonald [facility] POCT GLUCOSE (AUTOMATED) 2022-02-17 13:11:00 Vic Mcdonald [facility] MAGNESIUM 2022-02-17 10:28:00 [facility] BASIC METABOLIC PANEL 2022-02-17 10:28:00 [facility], [facility] (NA, K, CL, CO2, GLUCOSE, Medica l Branch BUN, CREATININE, CA) MAGNESIUM 2022-02-17 10:28:00 [facility], [facility] BASIC METABOLIC PANEL 2022-02-17 10:28:00 [facility] (NA, K, CL, CO2, GLUCOSE, Medica l Branch BUN, CREATININE, CA) MAGNESIUM 2022-02-17 10:28:00 [facility], [facility] BASIC METABOLIC PANEL 2022-02-17 10:28:00 [facility] (NA, K, CL, CO2, GLUCOSE, Medica l Branch BUN, CREATININE, CA) POCT GLUCOSE (AUTOMATED) 2022-02-17 10:01:00 Vic Mcdonald [facility] POCT GLUCOSE (AUTOMATED) 2022-02-17 10:01:00 Vic Mcdonald [facility] POCT GLUCOSE (AUTOMATED) 2022-02-17 10:01:00 Vic Mcdonald [facility] POCT GLUCOSE (AUTOMATED) 2022-02-17 06:32:00 Vic Mcdonald [facility] POCT GLUCOSE (AUTOMATED) 2022-02-17 06:32:00 Vic Mcdonald [facility] POCT GLUCOSE (AUTOMATED) 2022-02-17 06:32:00 Vic Mcdonald [facility] BASIC METABOLIC PANEL 2022-02-17 02:01:00 Lacey Alaniz [facility] (NA, K, CL, CO2, GLUCOSE, Medica l Branch BUN, CREATININE, CA) BASIC METABOLIC PANEL 2022-02-17 02:01:00 Lacey Alaniz [facility] (NA, K, CL, CO2, GLUCOSE, Medica l Branch BUN, CREATININE, CA) BASIC METABOLIC PANEL 2022-02-17 02:01:00 Lacey Alaniz [facility] (NA, K, CL, CO2, GLUCOSE, Medica l Branch BUN, CREATININE, CA) POCT GLUCOSE (AUTOMATED) 2022-02-17 01:53:00 Vic Mcdonald Un iversity of [facility] POCT GLUCOSE (AUTOMATED) 2022-02-17 01:53:00 Vic Mcdonald Un ivers[facility] of [facility] POCT GLUCOSE (AUTOMATED) 2022-02-17 01:53:00 Vic Mcdonald Un iversity of [facility] POCT GLUCOSE (AUTOMATED) 2022-02-16 23:02:00 Vic Mcdonald Un iversity of [facility] POCT GLUCOSE (AUTOMATED) 2022-02-16 23:02:00 Vic Mcdonald [facility] [place] [facility] POCT GLUCOSE (AUTOMATED) 2022-02-16 23:02:00 Vic Mcdonald Un iversity of [facility] XR FOOT 3+ VW BILATERAL 2022-02-16 21:35:00 [place] [facility] Medical Branch XR FOOT 3+ VW BILATERAL 2022-02-16 21:35:00 [place] [facility] Medical Branch XR FOOT 3+ VW BILATERAL 2022-02-16 21:35:00 [facility] POCT GLUCOSE (AUTOMATED) 2022-02-16 20:45:00 Vic Mcdonald Un [facility] POCT GLUCOSE (AUTOMATED) 2022-02-16 20:45:00 Vic Mcdonald Un ivers[facility] POCT GLUCOSE (AUTOMATED) 2022-02-16 20:45:00 Vic Mcdonald Un [facility] POCT GLUCOSE (AUTOMATED) 2022-02-16 16:41:00 Vic Mcdonald Un [facility] POCT GLUCOSE (AUTOMATED) 2022-02-16 16:41:00 Vic Mcdonald [facility] POCT GLUCOSE (AUTOMATED) 2022-02-16 16:41:00 Vic Mcdonald Un i[facility] BASIC METABOLIC PANEL 2022-02-16 15:35:00 [facility]cd[facility] (NA, K, CL, CO2, GLUCOSE, Medica l Branch BUN, CREATININE, CA) BASIC METABOLIC PANEL 2022-02-16 15:35:00 Vic Mcdonald [facility] (NA, K, CL, CO2, GLUCOSE, Medica l Branch BUN, CREATININE, CA) BASIC METABOLIC PANEL 2022-02-16 15:35:00 Vic Mcdonald [facility] (NA, K, CL, CO2, GLUCOSE, Medica l Branch BUN, CREATININE, CA) BETA HYDROXY-BUTYRATE 2022-02-16 15:34:[address] [facility] BETA HYDROXY-BUTYRATE 2022-02-16 15:34:00 [facility]ATE 2022-02-16 15:34:[address] [facility] POCT GLUCOSE (AUTOMATED) 2022-02-16 14:20:00 Vic Mcdonald [facility] POCT GLUCOSE (AUTOMATED) 2022-02-16 14:20:00 Vic Mcdonald [facility] POCT GLUCOSE (AUTOMATED) 2022-02-16 14:20:00 Vic Mcdonald [facility] POCT GLUCOSE (AUTOMATED) 2022-02-16 12:52:00 Vic Mcdonald [facility] POCT GLUCOSE (AUTOMATED) 2022-02-16 12:52:00 Vic Mcdonald [facility] POCT GLUCOSE (AUTOMATED) 2022-02-16 12:52:00 Vic Mcdonald [facility] POCT GLUCOSE (AUTOMATED) 2022-02-16 09:04:00 Vic Mcdonald [facility] POCT GLUCOSE (AUTOMATED) 2022-02-16 09:04:00 Vic Mcdonald [facility] POCT GLUCOSE (AUTOMATED) 2022-02-16 09:04:00 Vic Mcdonald [facility] BASIC METABOLIC PANEL 2022-02-16 06:13:00 Myrna Chen [facility] (NA, K, CL, CO2, GLUCOSE, Medica l Branch BUN, CREATININE, CA) GLUTAMIC ACID 2022-02-16 06:13:00 Myrna Chen [facility] DECARBOXYLASE AB [facility] CBC WITHOUT DIFF 2022-02-16 06:13:00 [facility] 2022-02-16 06:13:00 Myrna Chen [facility] MAGNESIUM 2022-02-16 06:13:00 Myrna Chen [facility] BASIC METABOLIC PANEL 2022-02-16 06:13:00 Myrna Chen [facility] (NA, K, CL, CO2, GLUCOSE, Medica l Branch BUN, CREATININE, CA) CBC WITHOUT DIFF 2022-02-16 06:13:00 [facility] 2022-02-16 06:13:00 [facility] DECARBOXYLASE AB [facility] MAGNESIUM 2022-02-16 06:13:00 [facility]OLIC PANEL 2022-02-16 06:13:00 Myrna Chen [facility] (NA, K, CL, CO2, GLUCOSE, Medica l Branch BUN, CREATININE, CA) CBC WITHOUT DIFF 2022-02-16 06:13:00 [facility] GLUTAM[facility] ACID 2022-02-16 06:13:00 Myrna Chen [place] [facility] POCT GLUCOSE (AUTOMATED) 2022-02-16 05:45:00 Vic Mcdonald [facility] POCT GLUCOSE (AUTOMATED) 2022-02-16 05:45:00 Vic Mcdonald [facility] POCT GLUCOSE (AUTOMATED) 2022-02-16 05:45:00 Vic Mcdonald [facility] POCT GLUCOSE (AUTOMATED) 2022-02-16 01:26:00 Vic Mcdonald [facility] POCT GLUCOSE (AUTOMATED) 2022-02-16 01:26:00 Vic Mcdonald [facility] POCT GLUCOSE (AUTOMATED) 2022-02-16 01:26:00 Vic Mcdonald [facility] POCT GLUCOSE (AUTOMATED) 2022-02-15 23:42:00 Vic Mcdonald [facility] POCT GLUCOSE (AUTOMATED) 2022-02-15 23:42:00 Vic Mcdonald [facility] POCT GLUCOSE (AUTOMATED) 2022-02-15 23:42:00 Vic Mcdonald [facility] BASIC METABOLIC PANEL 2022-02-15 22:51:00 Vic Mcdonald [facility] [place] (NA, K, CL, CO2, GLUCOSE, Medica l Branch BUN, CREATININE, CA) BASIC METABOLIC PANEL 2022-02-15 22:51:00 Vic Mcdonald Unive rsity [facility] (NA, K, CL, CO2, GLUCOSE, Medica l Branch BUN, CREATININE, CA) BASIC METABOLIC PANEL 2022-02-15 22:51:00 Vic Mcdonald Unive [facility] [place] (NA, K, CL, CO2, GLUCOSE, Medica l Branch BUN, CREATININE, CA) POCT GLUCOSE (AUTOMATED) 2022-02-15 22:37:00 Vic Mcdonald [facility] POCT GLUCOSE (AUTOMATED) 2022-02-15 22:37:00 Vic Mcdonald [facility] POCT GLUCOSE (AUTOMATED) 2022-02-15 22:37:00 Vic Mcdonald [facility] [place] [facility] POCT GLUCOSE (AUTOMATED) 2022-02-15 21:30:00 Vic Mcdonald [facility] POCT GLUCOSE (AUTOMATED) 2022-02-15 21:30:00 Vic Mcdonald [facility] [place] [facility] POCT GLUCOSE (AUTOMATED) 2022-02-15 21:30:00 Vic Mcdonald [facility] POCT GLUCOSE (AUTOMATED) 2022-02-15 20:05:00 Vic Mcdonald [facility] POCT GLUCOSE (AUTOMATED) 2022-02-15 20:05:00 Vic Mcdonald [facility] POCT GLUCOSE (AUTOMATED) 2022-02-15 20:05:00 Vic Mcdonald Un [facility] HB ECG ROUTINE & RHYTHM 2022-02-15 19:59:13 Lacey Alaniz Uni versity of [facility] HB ECG ROUTINE & RHYTHM 2022-02-15 19:59:13 Corbin Ahrob Jay Uni versity of [facility] HB ECG ROUTINE & RHYTHM 2022-02-15 19:59:13 Lacey Alaniz Uni versity of [facility] POCT GLUCOSE (AUTOMATED) 2022-02-15 19:06:00 Vic Mcdonald [facility] POCT GLUCOSE (AUTOMATED) 2022-02-15 19:06:00 Vic Mcdonald [facility] POCT GLUCOSE (AUTOMATED) 2022-02-15 19:06:00 Vic Mcdonald [facility] BLOOD CULTURE SCREEN 2022-02-15 18:49:00 Nai [facility]aranjo [facility] 2022-02-15 18:49:00 Nai Naranjo [facility] ity [facility] BLOOD CULTURE SCREEN 2022-02-15 18:49:00 Nai Naranjo [facility] 2022-02-15 18:48:00 Nai [facility]jo [facility] BLOOD CULTURE SCREEN 2022-02-15 18:48:00 Nai Naranjo [facility] BLOOD CULTURE SCREEN 2022-02-15 18:48:00 Naranjo, Anni [facility] XR CHEST 1 VW 2022-02-15 18:34:00 Butt, [facility] XR CHEST 1 VW 2022-02-15 18:34:00 Butt, [facility] XR CHEST 1 VW 2022-02-15 18:34:00 [facility], [facility] BASIC METABOLIC PANEL 2022-02-15 17:49:00 Vic Mcdonald [facility] (NA, K, CL, CO2, GLUCOSE, Medica l Branch BUN, CREATININE, CA) TROPONIN I 2022-02-15 17:49:00 [facility] TROPONIN I 2022-02-15 17:49:00 [facility] BASIC METABOLIC PANEL 2022-02-15 17:49:00 Vic Mcdonald [facility] [place] (NA, K, CL, CO2, GLUCOSE, Medica l Branch BUN, CREATININE, CA) TROPONIN I 2022-02-15 17:49:00 [facility] BASIC METABOLIC PANEL 2022-02-15 17:49:00 Vic Mcdonald [facility] (NA, K, CL, CO2, GLUCOSE, Medica l Branch BUN, CREATININE, CA) POCT GLUCOSE (AUTOMATED) 2022-02-15 17:27:00 Vic Mcdonald B Un iversity [facility] POCT GLUCOSE (AUTOMATED) 2022-02-15 17:27:00 Vic Mcdonald B Un iversity [facility] POCT GLUCOSE (AUTOMATED) 2022-02-15 17:27:00 Vic Mcdonald B Un iversity [facility] POCT GLUCOSE (AUTOMATED) 2022-02-15 15:53:00 Vic Mcdonald B [facility] [place] [facility] POCT GLUCOSE (AUTOMATED) 2022-02-15 15:53:00 Vic Mcdonald [facility] [place] [facility] POCT GLUCOSE (AUTOMATED) 2022-02-15 15:53:00 Vic Mcdonald [facility] [place] [facility] BASIC METABOLIC PANEL 2022-02-15 15:32:00 Vic Mcdonald [facility]ive [facility] [place] (NA, K, CL, CO2, GLUCOSE, Medica l Branch BUN, CREATININE, CA) BASIC METABOLIC PANEL 2022-02-15 15:32:00 Vic Mcdonald [facility]ive [facility] [place] (NA, K, CL, CO2, GLUCOSE, Medica l Branch BUN, CREATININE, CA) BASIC METABOLIC PANEL 2022-02-15 15:32:00 Vic Mcdonald [facility]ive [facility] [place] (NA, K, CL, CO2, GLUCOSE, Medica l Branch BUN, CREATININE, CA) POCT GLUCOSE (AUTOMATED) 2022-02-15 14:56:00 Vic Mcdonald [facility] [place] [facility] POCT GLUCOSE (AUTOMATED) 2022-02-15 14:56:00 Vic Mcdonald [facility] [place] [facility] POCT GLUCOSE (AUTOMATED) 2022-02-15 14:56:00 Vic Mcdonald [facility] [place] [facility] POCT GLUCOSE (AUTOMATED) 2022-02-15 13:48:00 Vic Mcdonald [facility] [place] [facility] POCT GLUCOSE (AUTOMATED) 2022-02-15 13:48:00 Vic Mcdonald [facility] [place] [facility] POCT GLUCOSE (AUTOMATED) 2022-02-15 13:48:00 Vic Mcdonald [facility] [place] [facility] POCT GLUCOSE (AUTOMATED) 2022-02-15 10:42:00 Vic Mcdonald [facility] [place] [facility] POCT GLUCOSE (AUTOMATED) 2022-02-15 10:42:00 Vic Mcdonald [facility] [place] [facility] POCT GLUCOSE (AUTOMATED) 2022-02-15 10:42:00 Vic Mcdonald [facility] [place] [facility] BASIC METABOLIC PANEL 2022-02-15 10:14:00 [facility]NA, K, CL, CO2, GLUCOSE, Medica l Branch BUN, CREATININE, CA) MAGNESIUM 2022-02-15 10:14:00 [facility] MAGNESIUM 2022-02-15 10:14:00 [facility] BASIC METABOLIC PANEL 2022-02-15 10:14:00 [facility] (NA, K, CL, CO2, GLUCOSE, Medica l Branch BUN, CREATININE, CA) MAGNESIUM 2022-02-15 10:14:[facility] 2022-02-15 10:14:00 [facility] (NA, K, CL, CO2, GLUCOSE, Medica l Branch BUN, CREATININE, CA) POCT GLUCOSE (AUTOMATED) 2022-02-15 09:30:00 [facility] PO[facility] GLUCOSE (AUTOMATED) 2022-02-15 09:30:00 Vic Mcdonald Un iversity [facility] POCT GLUCOSE (AUTOMATED) 2022-02-15 09:30:00 Vic Mcdonald Un iversity [facility] POCT GLUCOSE (AUTOMATED) 2022-02-15 07:11:00 Vic Mcdonald Un iversity [facility] POCT GLUCOSE (AUTOMATED) 2022-02-15 07:11:00 Vic Mcdonald Un iversity [facility] POCT GLUCOSE (AUTOMATED) 2022-02-15 07:11:00 Vic Mcdonald Un iversity [facility] OSMOLALITY, SERUM OR 2022-02-15 07:07:00 [facility] BETA HYDROXY-BUTYRATE 2022-02-15 07:07:00 Vic Mcdonald Unive rswandy [facility] OSMOLALITY, SERUM OR 2022-02-15 07:07:00 [facility]cd[facility] BETA HYDROXY-BUTYRATE 2022-02-15 07:07:00 Vic [facility]cdonald [facility] OSMOLALITY, SERUM OR 2022-02-15 07:07:00 Vic Mcdonald Univer sity [facility] PLASMA [facility] BETA HYDROXY-BUTYRATE 2022-02-15 07:07:00 Vci Mcdonald [facility]ive [facility] BASIC METABOLIC PANEL 2022-02-15 07:06:00 [facility] (NA, K, CL, CO2, GLUCOSE, Medica l Branch BUN, CREATININE, CA) BASIC METABOLIC PANEL 2022-02-15 07:06:00 Vic Mcdonald B [facility]ive [facility] (NA, K, CL, CO2, GLUCOSE, Medica l Branch BUN, CREATININE, CA) BASIC METABOLIC PANEL 2022-02-15 07:06:00 Vic Mcdonald Unive [facility] (NA, K, CL, CO2, GLUCOSE, Medica l Branch BUN, CREATININE, CA) CT ABDOMEN PELVIS W 2022-02-15 05:28:46 Vic Mcdonald Univers ity [facility] CONTRAST [facility] CT ABDOMEN PELVIS W 2022-02-15 05:28:46 Vic Mcdonald Univers ity [facility] CONTRAST [facility] CT ABDOMEN PELVIS W 2022-02-15 05:28:46 Vic Mcdonald Univers ity [facility] POCT GLUCOSE(AGE >30DAYS) 2022-02-15 05:11:00 [facility]cd[facility] POCT GLUCOSE(AGE >30DAYS) 2022-02-15 05:11:00 [facility]cdonald [facility] POCT GLUCOSE(AGE >30DAYS) 2022-02-15 05:11:00 Vic [facility]cdonald [facility] POCT GLUCOSE (AUTOMATED) 2022-02-15 05:08:00 Vic [facility]cdonald [facility] POCT GLUCOSE (AUTOMATED) 2022-02-15 05:08:00 Vic [facility]cdonald [facility] POCT GLUCOSE (AUTOMATED) 2022-02-15 05:08:00 [facility] 2022-02-15 04:31:00 HarryVic B [facility]iver [facility] BLOOD CULT[facility] WORKUP 2022-02-15 04:31:00 HarryVic B Univer [facility] GRAM POSITIVE BLOOD 2022-02-15 04:31:00 Vic Mcdonald [facility] PATHOGENS DNA [facility] PROBE-AEROBIC BLOOD CULTURE SCREEN 2022-02-15 04:31:00 HarryVic Univer [facility] BLOOD CULTURE WORKUP 2022-02-15 04:31:00 DaytonVic Univer [facility] GRAM POSITIVE BLOOD 2022-02-15 04:31:00 Vic Mcdonald [facility] PATHOGENS DNA [facility] PROBE-AEROBIC BLOOD CULTURE SCREEN 2022-02-15 04:31:00 [facility] BLOOD [facility] WORKUP 2022-02-15 04:31:00 [facility] GRAM POSITIVE BLOOD 2022-02-15 04:31:00 Vic Mcdonald [facility] PATHOGENS [facility] PROBE-AEROBIC URINALYSIS 2022-02-15 04:21:00 Vic Mcdonald [facility] URINE CULTURE 2022-02-15 04:21:00 Vic Mcdonald [facility] URINALYSIS 2022-02-15 04:21:00 Vic Mcdonald [facility] URINE CULTURE 2022-02-15 04:21:00 Vic Mcdonald [facility] URINALYSIS 2022-02-15 04:21:00 Vic Mcdonald [facility] URINE CULTURE 2022-02-15 04:21:00 Vic Mcdonald [facility] COVID-19 (ID NOW RAPID 2022-02-15 04:20:00 Vic Mcdonald [facility] TESTING) Medical Branch LAB ONLY COVID 2022-02-15 04:20:00 Vic Mcdonald [facility] COVID-19 (ID NOW RAPID 2022-02-15 04:20:00 Vic Mcdonald [facility] TESTING) Medical Branch LAB ONLY COVID 2022-02-15 04:20:00 Vic Mcdonald [facility] COVID-19 (ID NOW RAPID 2022-02-15 04:20:00 Vic Mcdonald [facility] TESTING) Medical Branch LAB ONLY COVID 2022-02-15 04:20:00 Vic Mcdonald [facility] CBC WITH DIFF 2022-02-15 04:18:00 Vic Mcdonald [facility] PROTHROMBIN TIME / INR 2022-02-15 04:18:[address] [facility] BASIC METABOLIC PANEL 2022-02-15 04:18:00 Vic Mcdonald [facility] (NA, K, CL, CO2, GLUCOSE, Medica l Branch BUN, CREATININE, CA) HEPATIC FUNCTION PANEL 2022-02-15 04:18:00 Vic Mcdonald [facility] ([id number]) (ALB,T.PRO,BILI Medical Branch T,BU/BC,ALT,AST,ALK PHOS) LIPASE 2022-02-15 04:18:00 Vic Mcdonald [facility] ACUTE CARE VENOUS BLOOD 2022-02-15 04:18:00 Vic Mcdonald [facility] GAS [facility] LACTIC ACID WHOLE BLOOD 2022-02-15 04:18:00 Vic Mcdonald [facility] MAGNESIUM 2022-02-15 04:18:00 Vic Mcdonald [facility] PHOSPHORUS 2022-02-15 04:18:00 Vic Mcdonald [facility] GLYCOSYLATED HEMOGLOBIN 2022-02-15 04:18:00 Vic Mcdonald [facility] (A1C) [facility] PHOSPHORUS 2022-02-15 04:18:00 Vic Mcdonald [facility] LIPASE 2022-02-15 04:18:00 Vic Mcdonald [facility] MAGNESIUM 2022-02-15 04:18:00 Vic Mcdonald [facility] HEPATIC FUNCTION PANEL 2022-02-15 04:18:00 Vic Mcdonald [facility] ([id number]) (ALB,T.PRO,BILI Medical Branch T,BU/BC,ALT,AST,ALK PHOS) BASIC METABOLIC PANEL 2022-02-15 04:18:00 Vic Mcdonald [facility] (NA, K, CL, CO2, GLUCOSE, Medica l Branch BUN, CREATININE, CA) ACUTE CARE VENOUS BLOOD 2022-02-15 04:18:[address] [facility] CBC WITH DIFF 2022-02-15 04:18:00 Vic Mcdonald [facility] GLYCOSYLATED HEMOGLOBIN 2022-02-15 04:18:00 Vic Mcdonald [facility] (A1C) [facility] PROTHROMBIN TIME / INR 2022-02-15 04:18:[address] [facility] LACTIC ACID WHOLE BLOOD 2022-02-15 04:18:00 Vic Mcdonald [facility] PHOSPHORUS 2022-02-15 04:18:00 Vic Mcdonald [facility] LIPASE 2022-02-15 04:18:00 Vic Mcdonald [facility] MAGNESIUM 2022-02-15 04:18:00 Vic Mcdonald [facility] HEPATIC FUNCTION PANEL 2022-02-15 04:18:00 Vic Mcdonald [facility] ([id number]) (ALB,T.PRO,[facility] T,BU/BC,ALT,AST,ALK PHOS) BASIC METABOLIC PANEL 2022-02-15 04:18:00 Vic Mcdonald [facility] (NA, K, CL, CO2, GLUCOSE, Medica l Branch BUN, CREATININE, CA) ACUTE CARE VENOUS BLOOD 2022-02-15 04:18:[address] [facility] CBC WITH DIFF 2022-02-15 04:18:00 Vic Mcdonald [facility] GLYCOSYLATED HEMOGLOBIN 2022-02-15 04:18:00 Vic Mcdonald [facility] [place] (A1C) [facility] PROTHROMBIN TIME / INR 2022-02-15 04:18:00 [facility]onald [facility] LACTIC ACID WHOLE BLOOD 2022-02-15 04:18:00 Vic Mcdonald [facility] vers[facility] EMERGENCY DEPARTMENT 2022-02-14 05:01:00 Doctor Unassigned, No [facility] [place] DOCUMENTS [facility]3] HOSPITAL ADMISSION 2022-02-14 05:01:00 Doctor Unassigned, No Uni versity of [facility] EMERGENCY DEPARTMENT 2022-02-14 05:01:00 Doctor Unassigned, No [facility] of [facility] HOSPITAL ADMISSION 2022-02-14 05:01:00 Doctor Unassigned, No Uni versity of [facility] EMERGENCY DEPARTMENT 2022-02-14 05:01:00 Doctor Unassigned, No [facility] of [facility] HOSPITAL ADMISSION 2022-02-14 05:01:00 Doctor Unassigned, No Uni versity of [facility] POCT GLUCOSE (AUTOMATED) 2022-02-10 19:34:00 Kaylee Argueta Uni versity of [facility] POCT GLUCOSE (AUTOMATED) 2022-02-10 19:34:00 Kaylee Argueta Uni vers[facility] POCT GLUCOSE (AUTOMATED) 2022-02-10 16:39:00 Kaylee Argueta Uni vers[facility] POCT GLUCOSE (AUTOMATED) 2022-02-10 16:39:00 Kaylee Argueta Uni vers[facility] BASIC METABOLIC PANEL 2022-02-10 09:13:00 [facility] ([facility], K, CL, CO2, GLUCOSE, Medica l Branch BUN, CREATININE, CA) BASIC METABOLIC PANEL 2022-02-10 09:13:00 Cathleen [facility] (NA, K, CL, CO2, GLUCOSE, Medica l Branch BUN, CREATININE, CA) POCT GLUCOSE (AUTOMATED) 2022-02-10 01:45:00 Kaylee Argueta Uni versity of [facility] POCT GLUCOSE (AUTOMATED) 2022-02-10 01:45:00 Kosta Farzadlizet Lauren versity of [facility] POCT GLUCOSE (AUTOMATED) 2022-02-09 21:36:00 KostaKaylee Uni versity of [facility] POCT GLUCOSE (AUTOMATED) 2022-02-09 21:36:00 Kosta Kaylee Aguilar versity of [facility] POCT GLUCOSE (AUTOMATED) 2022-02-09 16:45:00 Kosta Kaylee Uni vers[facility] POCT GLUCOSE (AUTOMATED) 2022-02-09 16:45:00 Kosta Farzadlizet Lauren versity [facility] PHOSPHORUS 2022-02-09 13:17:00 Cathleen [facility] MAGNESIUM 2022-02-09 13:17:00 Cathleen [facility] BASIC METABOLIC PANEL 2022-02-09 13:17:00 Cathleen [facility] (NA, K, CL, CO2, GLUCOSE, Medica l Branch BUN, CREATININE, CA) BASIC METABOLIC PANEL 2022-02-09 13:17:00 Cathleen [facility] (NA, K, CL, CO2, GLUCOSE, Medica l Branch BUN, CREATININE, CA) MAGNESIUM 2022-02-09 13:17:00 Cathleen [facility] PHOSPHORUS 2022-02-09 13:17:00 Cathleen [facility] POCT GLUCOSE (AUTOMATED) 2022-02-09 12:42:00 Kosta Kaylee Aguilar versity [facility] POCT GLUCOSE (AUTOMATED) 2022-02-09 12:42:00 Kosta Farzadlizet Lauren versity [facility] POCT GLUCOSE (AUTOMATED) 2022-02-09 01:08:00 Kosta Farzadlizet Lauren versity of [facility] POCT GLUCOSE (AUTOMATED) 2022-02-09 01:08:00 Kosta Farzadlizet [facility]IS 2022-02-08 22:52:00 Cathleen [facility] URINE CULTURE 2022-02-08 22:52:00 Cathleen [facility] URINALYSIS 2022-02-08 22:52:00 Cathleen [facility] URINE CULTURE 2022-02-08 22:52:00 Cathleen [facility] POCT GLUCOSE (AUTOMATED) 2022-02-08 21:40:00 Edkeri Farzady Uni versity [facility] POCT GLUCOSE (AUTOMATED) 2022-02-08 21:40:00 Edionwe [facility]cy Uni versity of [facility] POCT GLUCOSE (AUTOMATED) 2022-02-08 16:02:00 Edionwe, [facility] POCT GLUCOSE (AUTOMATED) 2022-02-08 16:02:00 Edionwe, Farzady [facility] POCT GLUCOSE (AUTOMATED) 2022-02-08 13:08:00 Edionwe Farzady [facility] POCT GLUCOSE (AUTOMATED) 2022-02-08 13:08:00 Edionwe [facility] POCT GLUCOSE (AUTOMATED) 2022-02-08 10:58:00 Edionwe, [facility] POCT GLUCOSE (AUTOMATED) 2022-02-08 10:58:00 KostaKaylee Uni [facility] LACTIC ACID WHOLE BLOOD 2022-02-08 09:47:[address] [facility] LACTIC ACID WHOLE BLOOD 2022-02-08 09:47:[address] [facility] PHOSPHORUS 2022-02-08 09:46:00 Severino Beth [facility] MAGNESIUM 2022-02-08 09:46:00 Severino Beth [facility] COMP. METABOLIC PANEL 2022-02-08 09:46:00 Severino Beth [facility] ([id number] CBC WITH DIFF 2022-02-08 09:46:00 [facility] CBC WITH DIFF 2022-02-08 09:46:00 Severino Beth [facility] COMP. METABOLIC PANEL 2022-02-08 09:46:00 Severino Beth [facility] ([id number]) Medical Branch MAGNESIUM 2022-02-08 09:46:00 Severino Beth [facility] PHOSPHORUS 2022-02-08 09:46:00 Kirit [facility] POCT GLUCOSE (AUTOMATED) 2022-02-08 07:47:00 Edkeri Kaylee [employer] [facility] POCT GLUCOSE (AUTOMATED) 2022-02-08 07:47:00 Edionwe NGDATA [facility] POCT GLUCOSE (AUTOMATED) 2022-02-08 03:40:00 Edkeri MorphoSyslizet [employer] [facility] POCT GLUCOSE (AUTOMATED) 2022-02-08 03:40:00 Kosta NGDATA [facility] POCT GLUCOSE (AUTOMATED) 2022-02-08 00:43:00 Edkeri MorphoSyslizet [employer] [facility] POCT GLUCOSE (AUTOMATED) 2022-02-08 00:43:00 Kosta MorphoSyslizet [employer] [facility] BASIC METABOLIC PANEL 2022-02-07 23:29:00 Severino Beth [facility] (NA, K, CL, CO2, GLUCOSE, Medica l Branch BUN, CREATININE, CA) BASIC METABOLIC PANEL 2022-02-07 23:29:00 Severino Beth [facility] (NA, K, CL, CO2, GLUCOSE, Medica l Branch BUN, CREATININE, CA) POCT GLUCOSE (AUTOMATED) 2022-02-07 22:28:00 Kosta Farzadlizet [employer] [facility] POCT GLUCOSE (AUTOMATED) 2022-02-07 22:28:00 Kosta MorphoSyslizet [employer] [facility] US RETROPERITONEAL 2022-02-07 22:27:00 Severino Beth [facility] US RETROPERITONEAL 2022-02-07 22:27:00 Severino Beth [facility] CT ABDOMEN PELVIS WO 2022-02-07 20:05:00 Severino Beth [facility] CONTRAST [facility] CT ABDOMEN PELVIS WO 2022-02-07 20:05:00 Severino Beth [facility] CONTRAST [facility] POCT GLUCOSE (AUTOMATED) 2022-02-07 19:07:00 Kosta Kaylee [employer] [facility] POCT GLUCOSE (AUTOMATED) 2022-02-07 19:07:00 Kosta Kaylee [employer] [facility] POCT GLUCOSE (AUTOMATED) 2022-02-07 18:00:00 Kosta Kaylee [employer] [facility] POCT GLUCOSE (AUTOMATED) 2022-02-07 18:00:00 Kosta Farzadlizet [employer] [facility] PROTEIN CREAT RATIO URINE 2022-02-07 17:45:00 Augusta Hendricks [facility] RANDOM [facility] PROTEIN CREAT RATIO URINE 2022-02-07 17:45:00 Augusta Hendricks [facility] RANDOM [facility] POCT GLUCOSE (AUTOMATED) 2022-02-07 17:25:00 Kosta Kaylee [employer] [facility] POCT GLUCOSE (AUTOMATED) 2022-02-07 17:25:00 Kosta Farzadlizet [employer] [facility] LACTIC ACID WHOLE BLOOD 2022-02-07 17:23:[address] [facility] LACTIC ACID WHOLE BLOOD 2022-02-07 17:23:[address] [facility] BASIC METABOLIC PANEL 2022-02-07 17:22:00 Severino Beth [facility] (NA, K, CL, CO2, GLUCOSE, Medica l Branch BUN, CREATININE, CA) BASIC METABOLIC PANEL 2022-02-07 17:22:00 Severino Beth [facility] (NA, K, CL, CO2, GLUCOSE, Medica l Branch BUN, CREATININE, CA) POCT GLUCOSE (AUTOMATED) 2022-02-07 16:07:00 Kosta Kaylee [employer] [facility] POCT GLUCOSE (AUTOMATED) 2022-02-07 16:07:00 Kosta Kaylee [employer] [facility] POCT GLUCOSE (AUTOMATED) 2022-02-07 15:04:00 [facility]UCOSE (AUTOMATED) 2022-02-07 15:04:00 Kosta Kaylee [facility] POCT GLUCOSE (AUTOMATED) 2022-02-07 13:57:00 Kosta Kaylee [facility] POCT GLUCOSE (AUTOMATED) 2022-02-07 13:57:00 Kosta Kaylee [facility] URINE CULTURE 2022-02-07 13:50:00 [facility] URINE CULTURE 2022-02-07 13:50:00 [facility] LACTIC ACID WHOLE BLOOD 2022-02-07 12:57:00 Kosta [facility] LACTIC ACID WHOLE BLOOD 2022-02-07 12:57:00 Kosta [facility] POCT GLUCOSE (AUTOMATED) 2022-02-07 12:55:00 Kosta Kaylee [facility] POCT GLUCOSE (AUTOMATED) 2022-02-07 12:55:00 Kosta Kaylee [facility] BASIC METABOLIC PANEL 2022-02-07 12:51:00 Kosta [facility] (NA, K, CL, CO2, GLUCOSE, Medica l Branch BUN, CREATININE, CA) BASIC METABOLIC PANEL 2022-02-07 12:51:00 Kosta [facility] (NA, K, CL, CO2, GLUCOSE, Medica l Branch BUN, CREATININE, CA) MRSA / MSSA SCREEN BY 2022-02-07 10:37:00 Edkeri [facility] MRSA / MSSA SCREEN BY 2022-02-07 10:37:00 Edkeri, [facility] PCR, [facility] URINE DRUG (IMMUNOASSAY) 2022-02-07 10:36:00 Kosta Farzadlizet [employer] [facility] DRUG [facility] SCREEN LACTIC ACID WHOLE BLOOD 2022-02-07 10:36:00 Kosta [facility] URINE DRUG (LCMSMS) - 2022-02-07 10:36:00 Kosta [facility] SYNTHETIC OPIATES PANEL [facility] LACTIC ACID WHOLE BLOOD 2022-02-07 10:36:00 Kosta [facility] URINE DRUG (IMMUNOASSAY) 2022-02-07 10:36:00 Kosta [facility] SCREEN URINE DRUG (LCMSMS) - 2022-02-07 10:36:00 Kosta [facility] OPIATES PANEL Medical Branch PHOSPHORUS 2022-02-07 08:58:00 Edkeri [facility] MAGNESIUM 2022-02-07 08:58[facility]OX[facility]ATE 2022-02-07 08:58:00 Carlene Alcantara [facility] BASIC METABOLIC PANEL 2022-02-07 08:58:00 [facility] ([facility], K, CL, CO2, GLUCOSE, Medica l Branch BUN, CREATININE, CA) BETA HYDROXY-BUTYRATE 2022-02-07 08:58:[address] [facility] BASIC METABOLIC PANEL 2022-02-07 08:58:00 [facility] ([facility], K, CL, CO2, GLUCOSE, Medica l Branch BUN, CREATININE, CA) MAGNESIUM 2022-02-07 08:58:00 Kosta [facility] PHOSPHORUS 2022-02-07 08:58:00 Kosta [facility] CBC WITH DIFF 2022-02-07 06:40:00 Kosta [facility] LACTIC ACID WHOLE BLOOD 2022-02-07 06:40:00 Kosta [facility] LACTIC ACID WHOLE BLOOD 2022-02-07 06:40:00 Kosta [facility] CBC WITH DIFF 2022-02-07 06:40:00 [facility] PO[facility]UCOSE (AUTOMATED) 2022-02-07 05:14:00 Edionwe, [facility] POCT GLUCOSE (AUTOMATED) 2022-02-07 05:14:00 KostaKaylee [facility] ED BLADDER 2022-02-07 04:35:00 Carlene Alcantara [facility] ED BLADDER 2022-02-07 04:35:00 Carlene Alcantara [facility] POCT GLUCOSE (AUTOMATED) 2022-02-07 03:51:00 KostaKaylee [facility] POCT GLUCOSE (AUTOMATED) 2022-02-07 03:51:00 KostaFarzadlizet Lauren [facility] XR CHEST 1 VW 2022-02-07 02:43:07 Carlene Alcantara [facility] XR ANKLE 3+ VW LEFT 2022-02-07 02:43:07 Carlene Alcantara [facility] XR CHEST 1 VW 2022-02-07 02:43:07 Carlene Alcantara [facility] XR ANKLE 3+ VW LEFT 2022-02-07 02:43:07 Carlene Alcantara [facility] LACTIC ACID WHOLE BLOOD 2022-02-07 02:30:[address] [facility] LACTIC ACID WHOLE BLOOD 2022-02-07 02:30:[address] [facility] URINALYSIS 2022-02-07 01:38:00 Carlene Alcantara [facility] URINALYSIS 2022-02-07 01:38:00 Carlene Alcantara [facility] POCT GLUCOSE (AUTOMATED) 2022-02-07 01:36:00 Carlene Alcantara [facility] POCT GLUCOSE (AUTOMATED) 2022-02-07 01:36:00 Carlene Alcantara [facility] PHOSPHORUS 2022-02-07 01:24:00 Carlene Alcantara [facility] LIPASE 2022-02-07 01:24:00 Carlene Alcantara [facility] MAGNESIUM 2022-02-07 01:24:00 Carlene Alcantara [facility] TROPONIN I 2022-02-07 01:24:00 Carlene Alcantara [facility] COMP. METABOLIC PANEL 2022-02-07 01:24:00 Carlene Alcantara [facility] ([id number]) [facility] SALICYLATE 2022-02-07 01:24:00 Carlene Alcantara [facility] ETHANOL 2022-02-07 01:24:00 Carlene Alcantara [facility] COMP. METABOLIC PANEL 2022-02-07 01:24:00 Carlene Alcantara [facility] ([id number]) [facility] LIPASE 2022-02-07 01:24:00 Carlene Alcantara [facility] TROPONIN I 2022-02-07 01:24:00 Carlene Alcantara [facility] ETHANOL 2022-02-07 01:24:00 Carlene Alcantara [facility] ACETAMINOPHEN 2022-02-07 01:24:00 Carlene Alcantara [facility] PHOSPHORUS 2022-02-07 01:24:00 Carlene Alcantara [facility] MAGNESIUM 2022-02-07 01:24:00 Carlene Alcantara [facility] CT LUMBAR SPINE WO 2022-02-07 01:16:52 Carlene Alcantara [facility] CONTRAST [facility] CT THORACIC SPINE WO 2022-02-07 01:16:52 Carlene Alcantara [facility] CONTRAST [facility] CT THORACIC SPINE WO 2022-02-07 01:16:52 Carlene Alcantara [facility] CONTRAST [facility] CT LUMBAR SPINE WO 2022-02-07 01:16:52 Carlene Alcantara [facility] CONTRAST [facility] CT CERVICAL SPINE WO 2022-02-07 01:16:24 Carlene Aclantara [facility] CONTRAST [facility] CT HEAD WO CONTRAST 2022-02-07 01:16:24 Carlene Alcantara [facility] CT HEAD WO CONTRAST 2022-02-07 01:16:24 Carlene Alcantara [facility] CT CERVICAL SPINE WO 2022-02-07 01:16:24 Carlene Alcantara [facility] CONTRAST [facility] BLOOD CULTURE SCREEN 2022-02-07 00:41:00 Carlene [facility]antara [facility] BLOOD CULTURE SCREEN 2022-02-07 00:41:00 Carlene Alcat[facility]ara [facility] COVID-19 (ID NOW RAPID 2022-02-07 00:30:00 Carlene Alcantara [facility] TEST[facility]) Medical Branch LAB ONLY COVID 2022-02-07 00:30:00 Carlene Alcantara [facility] COVID-19 (ID NOW RAPID 2022-02-07 00:30:00 Carlene Alcantara [facility]) Medical Branch LAB ONLY COVID 2022-02-07 00:30:00 Carlene Alcantara [facility] POCT GLUCOSE (AUTOMATED) 2022-02-07 00:05:00 Carlene Alcantara [facility] POCT GLUCOSE (AUTOMATED) 2022-02-07 00:05:00 Carlene Alcantara [facility] ACUTE CARE VENOUS BLOOD 2022-02-06 23:53:00 Carlene Alcantara [facility] ACUTE CARE VENOUS BLOOD 2022-02-06 23:53:00 Carlene Alcantara [facility] CBC WITH DIFF 2022-02-06 23:48:00 Carlene Alcantara [facility] CBC WITH DIFF 2022-02-06 23:48:00 Carlene Alcantara [facility] LACTIC ACID WHOLE BLOOD 2022-02-06 23:47:[address] [facility] LACTIC ACID WHOLE BLOOD 2022-02-06 23:47:[address] [facility] HB ECG ROUTINE & RHYTHM 2022-02-06 23:31:40 Carlene Alcantara [facility] HB ECG ROUTINE & RHYTHM 2022-02-06 23:31:40 Carlene Alcantara [facility] EMERGENCY DEPARTMENT 2022-02-06 05:01:00 Doctor Unassigned, No U [facility] DOCUMENTS [facility]3] EMERGENCY DEPARTMENT 2022-02-06 05:01:00 [facility]3] HOSPITAL ADMISSION 2022-02-06 05:01:00 [facility]igned, [facility] 2022-01-27 02:34:07 [facility] 2022-01-27 02:34:07 [facility] POCT GLUCOSE(AGE >30DAYS) 2022-01-27 01:30:00 [facility] POCT GLUCOSE(AGE >30DAYS) 2022-01-27 01:30:00 [facility]) 2022-01-27 01:28:00 [facility] POCT GLUCOSE (AUTOMATED) 2022-01-27 01:28:00 [facility] POCT GLUCOSE (AUTOMATED) 2022-01-27 00:38:00 Randall [facility] POCT GLUCOSE (AUTOMATED) 2022-01-27 00:38:00 Randall S[facility] URINALYSIS 2022-01-26 23:58:00 Shavon [facility] URINALYSIS 2022-01-26 23:58:00 Randall Sands [facility] POCT GLUCOSE (AUTOMATED) 2022-01-26 23:26:00 Randall Sands [facility] POCT GLUCOSE (AUTOMATED) 2022-01-26 23:26:00 Randall Sands [facility] BASIC METABOLIC PANEL 2022-01-26 22:24:00 Randall Sands [facility] (NA, K, CL, CO2, GLUCOSE, Medica l Branch BUN, CREATININE, CA) CBC WITH DIFF 2022-01-26 22:24:00 Randall Sands [facility] COVID-19 (ID NOW RAPID 2022-01-26:24:00 Randall Sands [facility] TESTING) Medical Branch CBC WITH DIFF 2022-01-26 22:24:00 Randall Sands [facility] BASIC METABOLIC PANEL 2022-01-26 22:24:00 Randall Sands [facility] (NA, K, CL, CO2, GLUCOSE, Medica l Branch BUN, CREATININE, CA) COVID-19 (ID NOW RAPID 2022-01-26 22:24:00 Randall Sands [facility] TESTING) Medical Branch LAB ONLY COVID 2022-01-26 22:24:00 Shavon [facility] INTERPRETATION [facility] EMERGENCY SERVICES 2022-01-26 05:01:00 Doctor Unassigned, No [facility] [place] AGREEMENTS AND Name [facility] AUTHORIZATIONS EMERGENCY DEPARTMENT 2022-01-26 05:01:00 Doctor Unassigned, [facility] Branch LIPASE 2022-01-17 10:37:00 Jennifer Olivera [facility] COMP. METABOLIC PANEL 2022-01-17 10:37:00 Jennifer Olivera [facility] ([id number]) Medical Branch CBC WITH DIFF 2022-01-17 10:37:00 Jarod Jennifer [facility] AC PANEL 21 + LACTIC ACID 2022-01-17 10:37:00 Jennifer Olivera [facility] CBC WITH DIFF 2022-01-17 10:37:00 Jennifer Olivera [facility] COMP. METABOLIC PANEL 2022-01-17 10:37:00 Jennifer Olivera [facility] ([id number]) [facility] AC PANEL 21 + LACTIC ACID 2022-01-17 10:37:00 Jennifer Olivera [facility] LIPASE 2022-01-17 10:37:00 Jennifer Olivera [facility] URINALYSIS 2022-01-17 10:24:00 Jarod Jennifer [facility] URINALYSIS 2022-01-17 10:24:00 Jennifer Olivera [facility] EMERGENCY SERVICES 2022-01-17 05:01:00 Doctor Unassigned, No [facility] [place] AGREEMENTS AND Name Medical Branch AUTHORIZATIONS POCT GLUCOSE (AUTOMATED) 2022-01-12 22:53:00 Jennifer Olivera [facility] POCT GLUCOSE (AUTOMATED) 2022-01-12 22:53:00 Jennifer Olivera [facility] POCT GLUCOSE (AUTOMATED) 2022-01-12 12:17:00 Jennifer Olivera [facility] [place] [facility] POCT GLUCOSE (AUTOMATED) 2022-01-12 12:17:00 Jennifer Olivera [facility] POCT GLUCOSE (AUTOMATED) 2022-01-12 04:47:00 Jennifer Olivera [facility] POCT GLUCOSE (AUTOMATED) 2022-01-12 04:47:00 Jennifer Olivera [facility] POCT GLUCOSE (AUTOMATED) 2022-01-12 01:43:00 Jennifer Olivera [facility] POCT GLUCOSE (AUTOMATED) 2022-01-12 01:43:00 Jennifer Olivera [facility] POCT GLUCOSE (AUTOMATED) 2022-01-11 21:51:00 Jennifer Olivera [facility] POCT GLUCOSE (AUTOMATED) 2022-01-11 21:51:00 Jennifer Olivera [facility] POCT GLUCOSE (AUTOMATED) 2022-01-11 17:04:00 Jennifer Olivera [facility] POCT GLUCOSE (AUTOMATED) 2022-01-11 17:04:00 Jennifer Olivera [facility] POCT GLUCOSE (AUTOMATED) 2022-01-11 13:09:00 Jennifer Olivera [facility] POCT GLUCOSE (AUTOMATED) 2022-01-11 13:09:00 Jennifer Olivera [facility] POCT GLUCOSE (AUTOMATED) 2022-01-11 08:32:00 Jennifer Olivera [facility] [place] [facility] POCT GLUCOSE (AUTOMATED) 2022-01-11 08:32:00 Jennifer Olivera [facility] POCT GLUCOSE (AUTOMATED) 2022-01-11 05:45:00 Jennifer Olivera [facility] POCT GLUCOSE (AUTOMATED) 2022-01-11 05:45:00 Jennifer Olivera versity of [facility] POCT GLUCOSE (AUTOMATED) 2022-01-11 02:43:00 Jennifer Olivera vers[facility] of [facility] POCT GLUCOSE (AUTOMATED) 2022-01-11 02:43:00 Jennifer Olivera vers[facility] of [facility] POCT GLUCOSE (AUTOMATED) 2022-01-10 22:37:00 Jennifer Olivera versity of [facility] POCT GLUCOSE (AUTOMATED) 2022-01-10 22:37:00 Jennifer Olivera vers[facility] of [facility] POCT GLUCOSE (AUTOMATED) 2022-01-10 18:04:00 Jennifer Olivera vers[facility] of [facility] POCT GLUCOSE (AUTOMATED) 2022-01-10 18:04:00 Jennifer Olivera [facility] BASIC METABOLIC PANEL 2022-01-10 14:22:00 Mayank [facility] (NA, K, CL, CO2, GLUCOSE, Medica l Branch BUN, CREATININE, CA) BASIC METABOLIC PANEL 2022-01-10 14:22:00 [facility] (NA, K, CL, CO2, GLUCOSE, Medica l Branch BUN, CREATININE, CA) POCT GLUCOSE (AUTOMATED) 2022-01-10 13:30:00 [facility] POCT GLUCOSE (AUTOMATED) 2022-01-10 13:30:00 Jennifer Olivera [facility] CRITICAL CARE 2022-01-10 11:11:[address] [facility] CRITICAL CARE 2022-01-10 11:11:[address] [facility] POCT GLUCOSE (AUTOMATED) 2022-01-10 11:01:00 Jennifer Olivera versity of [facility] POCT GLUCOSE (AUTOMATED) 2022-01-10 11:01:00 Jennifer Olivera versity of [facility] POCT GLUCOSE (AUTOMATED) 2022-01-10 07:19:00 Jennifer Olivera vers[facility] of [facility] POCT GLUCOSE (AUTOMATED) 2022-01-10 07:19:00 [facility] BASIC METABOLIC PANEL 2022-01-10 05:53:00 Jennifer Olivera [facility] (NA, K, CL, CO2, GLUCOSE, Medica l Branch BUN, CREATININE, CA) BASIC METABOLIC PANEL 2022-01-10 05:53:00 Jennifer Olivera [facility] (NA, K, CL, CO2, GLUCOSE, Medica l Branch BUN, CREATININE, CA) POCT GLUCOSE (AUTOMATED) 2022-01-10 04:41:00 Jennifer Olivera [facility] POCT GLUCOSE (AUTOMATED) 2022-01-10 04:41:00 Jennifer Olivera [facility] URINALYSIS 2022-01-10 03:59:00 Jennifer Olivera [facility] URINE CULTURE 2022-01-10 03:59:00 Jennifer Olivera [facility] URINALYSIS 2022-01-10 03:59:00 Jennifer Olivera [facility] URINE CULTURE 2022-01-10 03:59:00 Jennifer Olivera [facility] POCT GLUCOSE (AUTOMATED) 2022-01-10 03:48:00 Jennifer Olivera [facility] POCT GLUCOSE (AUTOMATED) 2022-01-10 03:48:00 Jennifer Olivera [facility] AC PANEL 21 + LACTIC ACID 2022-01-10 02:23:00 Jennifer Olivera [facility] AC PANEL 21 + LACTIC ACID 2022-01-10 02:23:00 Jennifer Olivera [facility] LIPASE 2022-01-10 02:22:00 Jennifer Olivera [facility] COMP. METABOLIC PANEL 2022-01-10 02:22:00 Jennifer Olivera [facility] ([id number]) Medical Branch CBC WITH DIFF 2022-01-10 02:22:00 Jennifer Olivera [facility] COVID-19 (ID NOW RAPID 2022-01-10 02:22:00 Jennifer Olivera [facility] TEST[facility]) Medical Branch LAB ONLY COVID 2022-01-10 02:22:00 Jennifer Olivera [facility] INTERPRETATION [facility] CBC WITH DIFF 2022-01-10 02:22:00 Jennifer Olivera [facility] COMP. METABOLIC PANEL 2022-01-10 02:22:00 Jennifer Olivera [facility] ([id number]) Medical Branch LIPASE 2022-01-10 02:22:00 Jennifer Olivera [facility] COVID-19 (ID NOW RAPID 2022-01-10 02:22:00 Jennifer Olivera [facility]) Medical Branch LAB ONLY COVID 2022-01-10 02:22:00 Jennifer Olivera [facility] INTERPRETATION [facility] HOSPITAL ADMISSION 2022-01-09 05:01:00 Doctor Unassigned, No Uni vers[facility] EMERGENCY DEPARTMENT 2022-01-09 05:01:00 Doctor Unassigned, No U niversity of [facility] HOSPITAL ADMISSION 2022-01-09 05:01:00 Doctor Unassigned, No Uni vers[facility] of [facility] POCT GLUCOSE (AUTOMATED) 2022-01-06 17:03:00 Negar Guardado Uni versity [facility] POCT GLUCOSE (AUTOMATED) 2022-01-06 16:09:00 [facility]ar [facility]ado [facility] HE[facility] PANEL 2022-01-06 09:01:00 Carlene Weaver [facility] ([id number]) (ALB,T.PRO,[facility] T,BU/BC,ALT,AST,ALK PHOS) BASIC METABOLIC PANEL 2022-01-06 09:01:00 Carlene Weaver [facility] (NA, K, CL, CO2, GLUCOSE, Medica l Branch BUN, CREATININE, CA) CBC WITH DIFF 2022-01-06 09:01:00 Carlene Weaver [facility] CBC WITH DIFF 2022-01-06 09:01:00 Carlene Weaver [facility] BASIC METABOLIC PANEL 2022-01-06 09:01:00 Carlene Weaver [facility] (NA, K, CL, CO2, GLUCOSE, Medica l Branch BUN, CREATININE, CA) HEPATIC FUNCTION PANEL 2022-01-06 09:01:00 Carlene Weaver [facility] ([id number]) (ALB,T.PRO,[facility] T,BU/BC,ALT,AST,ALK PHOS) POCT GLUCOSE (AUTOMATED) 2022-01-06 08:58:00 Negar Guardado [facility] POCT GLUCOSE (AUTOMATED) 2022-01-06 06:53:00 Negar Guardado [facility] POCT GLUCOSE (AUTOMATED) 2022-01-06 05:31:00 Negar Guardado [facility] POCT GLUCOSE (AUTOMATED) 2022-01-06 02:16:00 Negar Guardado [facility] POCT GLUCOSE (AUTOMATED) 2022-01-05 21:50:00 Negar Guardado [facility] BASIC METABOLIC PANEL 2022-01-05 20:45:00 [facility] (NA, K, CL, CO2, GLUCOSE, Medica l Branch BUN, CREATININE, CA) CBC WITH DIFF 2022-01-05 20:45:00 [facility] BASIC METABOLIC PANEL 2022-01-05 20:45:00 [facility] (NA, K, CL, CO2, GLUCOSE, Medica l Branch BUN, CREATININE, CA) CBC WITH DIFF 2022-01-05 20:45:00 [facility] POCT GLUCOSE (AUTOMATED) 2022-01-05 16:44:00 Negar Guardado [facility] POCT GLUCOSE (AUTOMATED) 2022-01-05 13:41:00 Negar Guardado [facility] URINE CULTURE 2022-01-05 06:41:00 Vadim Ferreira [facility] URINE CULTURE 2022-01-05 06:41:00 Vadim Ferreira [facility] POCT GLUCOSE (AUTOMATED) 2022-01-05 06:10:00 Vadim Ferreira [facility] CT ABDOMEN PELVIS W 2022-01-05 05:08:00 Vadim Ferreira [facility] CT ABDOMEN PELVIS W 2022-01-05 05:08:00 Vadim Ferreira [facility] URINALYSIS 2022-01-05 04:34:00 Vadim Ferreira [facility] COVID-19 (ID NOW RAPID 2022-01-05 04:34:00 Vadim Ferreira [facility] TESTING) Medical Branch LAB ONLY COVID 2022-01-05 04:34:00 Vadim Ferreira [facility] URINALYSIS 2022-01-05 04:34:00 Vadim Ferreira [facility] COVID-19 (ID NOW RAPID 2022-01-05 04:34:00 Vadim Ferreira [facility] TESTING) Medical Branch LAB ONLY COVID 2022-01-05 04:34:00 Vadim Ferreira [facility] INTERPRETATION [facility] LIPASE 2022-01-05 03:57:00 Vadim Ferreira [facility] COMP. METABOLIC PANEL 2022-01-05 03:57:00 Vadim Ferreira [facility] ([id number]) [facility] CBC WITH DIFF 2022-01-05 03:57:00 Vadim Ferreira [facility] CBC WITH DIFF 2022-01-05 03:57:00 Vadim Ferreira [facility] COMP. METABOLIC PANEL 2022-01-05 03:57:00 Vadim Ferreira [facility] ([id number]) [facility] LIPASE 2022-01-05 03:57:00 Vadim Ferreira [facility] EMERGENCY DEPARTMENT 2022-01-04 05:01:00 [facility] Unassigned[facility]3] HOSPITAL ADMISSION 2022-01-04 05:01:00 Doctor Unassigned, No Uni versity of [facility] POCT GLUCOSE (AUTOMATED) 2021-12-22 21:48:00 Kaylee Argueta Uni versity of [facility] POCT GLUCOSE (AUTOMATED) 2021-12-22 17:03:00 Kaylee Argueta Uni versity of [facility] POCT GLUCOSE (AUTOMATED) 2021-12-22 17:03:00 Kayele Argueta Uni versity [facility] POCT GLUCOSE (AUTOMATED) 2021-12-22 12:44:00 [facility]OM[facility]) 2021-12-22 12:44:00 EdKaylee saavedra Uni versity of [facility] BASIC METABOLIC PANEL 2021-12-22 10:29:00 Negar Guardado [facility] (NA, K, CL, CO2, GLUCOSE, Medica l Branch BUN, CREATININE, CA) CBC WITH DIFF 2021-12-22 10:29:00 Geo [facility] MAGNESIUM 2021-12-22 10:29:00 Geo [facility] MAGNESIUM 2021-12-22 10:29:00 Geo [facility] BASIC METABOLIC PANEL 2021-12-22 10:29:00 Negar Guardado [facility] (NA, K, CL, CO2, GLUCOSE, Medica l Branch BUN, CREATININE, CA) CBC WITH DIFF 2021-12-22 10:29:00 Geo [facility] POCT GLUCOSE (AUTOMATED) 2021-12-22 10:28:00 Kosta [facility] Uni versity of [facility] POCT GLUCOSE (AUTOMATED) 2021-12-22 10:28:00 Edioncourt [facility] Uni versity of [facility] POCT GLUCOSE (AUTOMATED) 2021-12-22 05:33:00 Edionwe [facility] [place] [facility] POCT GLUCOSE (AUTOMATED) 2021-12-22 05:33:00 Edtutuwe [facility] Uni versity of [facility] POCT GLUCOSE (AUTOMATED) 2021-12-22 04:37:00 Edionwe [facility] [place] [facility] POCT GLUCOSE (AUTOMATED) 2021-12-22 04:37:00 Edionwe, [facility] [place] [facility] POCT GLUCOSE (AUTOMATED) 2021-12-22 02:29:00 Edionwe [facility] [place] [facility] POCT GLUCOSE (AUTOMATED) 2021-12-22 02:29:00 Edionwe, [facility] Uni [facility] [place] [facility] POCT GLUCOSE (AUTOMATED) 2021-12-22 00:52:00 Edionwe [facility] Uni versity of [facility] POCT GLUCOSE (AUTOMATED) 2021-12-22 00:52:00 Edionwe, [facility] Uni [facility] POCT GLUCOSE (AUTOMATED) 2021-12-21 21:52:00 Kaylee [facility] PO[facility] GLUCOSE (AUTOMATED) 2021-12-21 21:52:00 Kaylee Argueta [facility] POCT GLUCOSE (AUTOMATED) 2021-12-21 16:42:00 JacobtutucourtKaylee [facility] POCT GLUCOSE (AUTOMATED) 2021-12-21 16:42:00 EdtutucourtKaylee [facility] XR CHEST 1 VW 2021-12-21 14:05:00 [facility] XR SKULL <4 VW 2021-12-21 14:05:00 Bozeman [facility] XR ABDOMEN 2 VW 2021-12-21 14:05:00 Geo [facility] XR ABDOMEN 2 VW 2021-12-21 14:05:00 Geo [facility] XR CHEST 1 VW 2021-12-21 14:05:00 Geo [facility] XR SKULL <4 VW 2021-12-21 14:05:00 Geo [facility] POCT GLUCOSE (AUTOMATED) 2021-12-21 12:47:00 JacobtutucourtKaylee [facility] POCT GLUCOSE (AUTOMATED) 2021-12-21 12:47:00 JacobtutucourtKaylee [facility] POCT GLUCOSE (AUTOMATED) 2021-12-21 08:59:00 KostaKaylee [facility] POCT GLUCOSE (AUTOMATED) 2021-12-21 08:59:00 KostaKaylee [facility] GLYCOSYLATED HEMOGLOBIN 2021-12-21 08:56:00 Severino Beth [facility] (A1C) [facility] CBC WITH DIFF 2021-12-21 08:56:00 Kirit [facility] BASIC METABOLIC PANEL 2021-12-21 08:56:00 Severino Beth [facility] (NA, K, CL, CO2, GLUCOSE, Medica l Branch BUN, CREATININE, CA) MAGNESIUM 2021-12-21 08:56:00 Severino Beth [facility] PHOSPHORUS 2021-12-21 08:56:00 [facility] 2021-12-21 08:56:00 [facility] MAGNESIUM 2021-12-21 08:56:00 Kirit [facility] BASIC METABOLIC PANEL 2021-12-21 08:56:00 Severino Beth [facility] (NA, K, CL, CO2, GLUCOSE, Medica l Branch BUN, CREATININE, CA) CBC WITH DIFF 2021-12-21 08:56:00 Kirit [facility] GLYCOSYLATED HEMOGLOBIN 2021-12-21 08:56:00 Severino Beth [facility] (A1C) [facility] POCT GLUCOSE (AUTOMATED) 2021-12-21 04:27:00 Kaylee Argueta Uni versity of [facility] POCT GLUCOSE (AUTOMATED) 2021-12-21 04:27:00 Kosta [facility] Uni versity of [facility] POCT GLUCOSE (AUTOMATED) 2021-12-21 01:11:00 Edkeri [facility] Uni versity of [facility] POCT GLUCOSE (AUTOMATED) 2021-12-21 01:11:00 Kosta [facility] Uni versity of [facility] POCT GLUCOSE (AUTOMATED) 2021-12-20 21:02:00 Edkeri [facility] Uni versity of [facility] POCT GLUCOSE (AUTOMATED) 2021-12-20 21:02:00 Edkeri [facility] Uni versity of [facility] POCT GLUCOSE (AUTOMATED) 2021-12-20 16:08:00 Edkeri [facility] Uni versity of [facility] POCT GLUCOSE (AUTOMATED) 2021-12-20 16:08:00 Edkeri [facility] Uni versity of [facility] POCT GLUCOSE (AUTOMATED) 2021-12-20 12:39:00 Edkeri [facility] Uni versity of [facility] POCT GLUCOSE (AUTOMATED) 2021-12-20 12:39:00 Kaylee Argueta Uni versity of [facility] LACTIC ACID WHOLE BLOOD 2021-12-20 09:25:[address] [facility] CBC WITH DIFF 2021-12-20 09:25:00 Kosta [facility] BASIC METABOLIC PANEL 2021-12-20 09:25:00 Kosta [facility] (NA, K, CL, CO2, GLUCOSE, Medica l Branch BUN, CREATININE, CA) BASIC METABOLIC PANEL 2021-12-20 09:25:00 Kosta [facility] (NA, K, CL, CO2, GLUCOSE, Medica l Branch BUN, CREATININE, CA) CBC WITH DIFF 2021-12-20 09:25:00 Kosta [facility] LACTIC ACID WHOLE BLOOD 2021-12-20 09:25:00 Alex [facility] POCT GLUCOSE (AUTOMATED) 2021-12-20 08:56:00 [facility] POCT GLUCOSE (AUTOMATED) 2021-12-20 08:56:[address] [facility] POCT GLUCOSE (AUTOMATED) 2021-12-20 04:51:[address] [facility] POCT GLUCOSE (AUTOMATED) 2021-12-20 04:51:[address] [facility] URINALYSIS 2021-12-20 02:47:00 Alex [facility] URINALYSIS 2021-12-20 02:47:00 Alex [facility] POCT GLUCOSE (AUTOMATED) 2021-12-20 02:29:00 [facility]) 2021-12-20 02:29:00 Mario Johnson [facility] HB ECG ROUTINE & RHYTHM 2021-12-20 00:33:38 Alex [facility] HB ECG ROUTINE & RHYTHM 2021-12-20 00:33:38 Alex [facility] URINALYSIS 2021-12-20 00:28:00 Alex [facility] URINE CULTURE 2021-12-20 00:28:00 Alex [facility] URINALYSIS 2021-12-20 00:28:00 Alex [facility] URINE CULTURE 2021-12-20 00:28:00 Alex [facility] CBC WITH DIFF 2021-12-20 00:25:00 Alex [facility] COMP. METABOLIC PANEL 2021-12-20 00:25:00 [facility] ([id number] Medical Branch LIPASE 2021-12-20 00:25:00 Alex [facility] LACTIC ACID WHOLE BLOOD 2021-12-20 00:25:00 Alex [facility] ACUTE CARE VENOUS BLOOD 2021-12-20 00:25:00 Alex [facility] BLOOD CULTURE SCREEN 2021-12-20 00:25:00 Mario [facility] BLOOD CULTURE SCREEN 2021-12-20 00:25:00 Mario [facility] LIPASE 2021-12-20 00:25:00 Alex [facility] COMP. METABOLIC PANEL 2021-12-20 00:25:00 Mario Johnson [facility] ([id number]) [facility] ACUTE CARE VENOUS BLOOD 2021-12-20 00:25:00 Alex [facility] CBC WITH DIFF 2021-12-20 00:25:00 Alex [facility] LACTIC ACID WHOLE BLOOD 2021-12-20 00:25:00 Alex [facility] EMERGENCY DEPARTMENT 2021-12-19 05:01:00 Doctor Unassigned, No [facility] [place] DOCUMENTS [facility]3] HOSPITAL ADMISSION 2021-12-19 05:01:00 Doctor Unassigned, No Uni versity of [facility] CBC WITH DIFF 2021-12-18 17:57:00 Mayank [facility] BASIC METABOLIC PANEL 2021-12-18 17:57:00 Mayank [facility] (NA, K, CL, CO2, GLUCOSE, Medica l Branch BUN, CREATININE, CA) MAGNESIUM 2021-12-18 17:57:00 [facility] MAGNESIUM 2021-12-18 17:57:00 [facility] BASIC METABOLIC PANEL 2021-12-18 17:57:00 [facility] (NA, K, CL, CO2, GLUCOSE, Medica l Branch BUN, CREATININE, CA) CBC WITH DIFF 2021-12-18 17:57:00 [facility] POCT GLUCOSE (AUTOMATED) 2021-12-18 16:49:00 Terminella, Thomas U niversity [facility] POCT GLUCOSE (AUTOMATED) 2021-12-18 16:49:00 Terminella, Thomas U niversity of [facility] POCT GLUCOSE (AUTOMATED) 2021-12-18 12:56:00 Terminella, Thomas U niversity of [facility] POCT GLUCOSE (AUTOMATED) 2021-12-18 12:56:00 Terminella, Thomas U niversity of [facility] POCT GLUCOSE (AUTOMATED) 2021-12-18 09:41:00 Terminella, Thomas U niversity of [facility] POCT GLUCOSE (AUTOMATED) 2021-12-18 09:41:00 Terminella, Thomas U niversity of [facility] POCT GLUCOSE (AUTOMATED) 2021-12-18 05:08:00 Terminella, Thomas U niversity of [facility] POCT GLUCOSE (AUTOMATED) 2021-12-18 05:08:00 Terminella, Thomas U niversity of [facility] POCT GLUCOSE (AUTOMATED) 2021-12-18 01:26:00 Terminella, Thomas U niversity of [facility] POCT GLUCOSE (AUTOMATED) 2021-12-18 01:26:00 Terminella, Thomas U niversity of [facility] POCT GLUCOSE (AUTOMATED) 2021-12-17 21:41:00 Terminella, Thomas U niversity of [facility] POCT GLUCOSE (AUTOMATED) 2021-12-17 21:41:00 Terminella, Thomas U niversity of [facility] POCT GLUCOSE (AUTOMATED) 2021-12-17 17:07:00 Terminella, Thomas U niversity of [facility] POCT GLUCOSE (AUTOMATED) 2021-12-17 17:07:00 Terminella, Thomas U niversity of [facility] POCT GLUCOSE (AUTOMATED) 2021-12-17 14:01:00 Terminella, Thomas U niversity of [facility] POCT GLUCOSE (AUTOMATED) 2021-12-17 14:01:00 Terminella, Thomas U niversity of [facility] POCT GLUCOSE (AUTOMATED) 2021-12-17 09:18:00 Terminella, Thomas U niversity of [facility] POCT GLUCOSE (AUTOMATED) 2021-12-17 09:18:00 Terminella, Thomas U niversity of [facility] POCT GLUCOSE (AUTOMATED) 2021-12-17 01:43:00 Terminella, Thomas U niversity of [facility] POCT GLUCOSE (AUTOMATED) 2021-12-17 01:43:00 Terminella, Thomas U niversity of [facility] POCT GLUCOSE (AUTOMATED) 2021-12-16 21:24:00 Vito Mckeon Uni versity of [facility] POCT GLUCOSE (AUTOMATED) 2021-12-16 21:24:00 Vito Mckeon Uni versity of [facility] POCT GLUCOSE (AUTOMATED) 2021-12-16 16:25:00 Vito Mckeon Uni versity of [facility] POCT GLUCOSE (AUTOMATED) 2021-12-16 16:25:00 Vito Mckeon Uni versity of [facility] URINALYSIS 2021-12-16 15:46:00 Talley, [facility] URINE CULTURE 2021-12-16 15:46:00 Talley, [facility] URINALYSIS 2021-12-16 15:46:00 Talley, [facility] URINE CULTURE 2021-12-16 15:46:00 Talley, [facility] POCT GLUCOSE (AUTOMATED) 2021-12-16 15:36:00 Vito Mckeon versity of [facility] POCT GLUCOSE (AUTOMATED) 2021-12-16 15:36:00 Vito Mckeon Uni versity of [facility] POCT GLUCOSE (AUTOMATED) 2021-12-16 14:25:00 Vito Mckeon Uni versity of [facility] POCT GLUCOSE (AUTOMATED) 2021-12-16 14:25:00 Vito Mckeon versity of [facility] BASIC METABOLIC PANEL 2021-12-16 13:45:00 Vito Mckeon [facility] (NA, K, CL, CO2, GLUCOSE, Medica l Branch BUN, CREATININE, CA) BASIC METABOLIC PANEL 2021-12-16 13:45:00 Vito Mckeon [facility] (NA, K, CL, CO2, GLUCOSE, Medica l Branch BUN, CREATININE, CA) POCT GLUCOSE (AUTOMATED) 2021-12-16 13:34:00 Vito Mckeon versity of [facility] POCT GLUCOSE (AUTOMATED) 2021-12-16 13:34:00 [facility] 2021-12-16 13:05:05 [facility] CRITICAL CARE 2021-12-16 13:05:05 [facility] POCT GLUCOSE (AUTOMATED) 2021-12-16 12:23:00 Vito Mckeon versity of [facility] POCT GLUCOSE (AUTOMATED) 2021-12-16 12:23:00 Vito Mckeon Uni versity of [facility] POCT GLUCOSE (AUTOMATED) 2021-12-16 11:24:00 Vito Mckeon versity of [facility] POCT GLUCOSE (AUTOMATED) 2021-12-16 11:24:00 Vito Mckeon versity of [facility] POCT GLUCOSE (AUTOMATED) 2021-12-16 10:33:00 Vito Mckeon Uni versity of [facility] POCT GLUCOSE (AUTOMATED) 2021-12-16 10:33:00 Vito Mckeon versity [facility] BASIC METABOLIC PANEL 2021-12-16 09:32:00 [facility] ([facility], K, CL, CO2, GLUCOSE, Medica l Branch BUN, CREATININE, CA) BASIC METABOLIC PANEL 2021-12-16 09:32:00 Rosalind [facility] (NA, K, CL, CO2, GLUCOSE, Medica l Branch BUN, CREATININE, CA) POCT GLUCOSE (AUTOMATED) 2021-12-16 09:30:00 Vito Mckeon [facility] PO[facility] GLUCOSE (AUTOMATED) 2021-12-16 09:30:00 AlbiVto cuenca [facility] POCT GLUCOSE (AUTOMATED) 2021-12-16 08:27:00 AlbVito cuenca [facility] POCT GLUCOSE (AUTOMATED) 2021-12-16 08:27:00 AlbVito cuenca [facility] POCT GLUCOSE (AUTOMATED) 2021-12-16 07:23:00 Vito Mckeon [facility] PO[facility] GLUCOSE (AUTOMATED) 2021-12-16 07:23:00 AlbVito cuenca [facility] POCT GLUCOSE (AUTOMATED) 2021-12-16 06:22:00 Vito Mckeon [facility] PO[facility] GLUCOSE (AUTOMATED) 2021-12-16 06:22:00 AlbVito cuenca Uni [facility] BASIC METABOLIC PANEL 2021-12-16 05:30:00 [facility] (NA, K, CL, CO2, GLUCOSE, Medica l Branch BUN, CREATININE, CA) BASIC METABOLIC PANEL 2021-12-16 05:30:00 Rosalind [facility] (NA, K, CL, CO2, GLUCOSE, Medica l Branch BUN, CREATININE, CA) POCT GLUCOSE (AUTOMATED) 2021-12-16 05:27:00 Vito Mckeon Uni versity [facility] POCT GLUCOSE (AUTOMATED) 2021-12-16 05:27:00 AlbVito cuenca Uni versity [facility] POCT GLUCOSE (AUTOMATED) 2021-12-16 04:23:00 AlbVito cuenca [facility] PO[facility] GLUCOSE (AUTOMATED) 2021-12-16 04:23:00 Vito Mckeon Uni versity [facility] POCT GLUCOSE (AUTOMATED) 2021-12-16 03:19:00 AlbVito cuenca [facility] POCT GLUCOSE (AUTOMATED) 2021-12-16 03:19:00 AlbVito cuenca [facility] POCT GLUCOSE (AUTOMATED) 2021-12-16 02:24:00 AlbVito cuenca Uni versity [facility] POCT GLUCOSE (AUTOMATED) 2021-12-16 02:24:00 Albjoellen Vito [facility] KETONES URINE 2021-12-16 01:49:00 [facility] KETONES URINE 2021-12-16 01:49:00 [facility] BETA HYDROXY-BUTYRATE 2021-12-16 01:44:00 Mayank [facility] BASIC METABOLIC PANEL 2021-12-16 01:44:00 [facility] (NA, K, CL, CO2, GLUCOSE, Medica l Branch BUN, CREATININE, CA) BETA HYDROXY-BUTYRATE 2021-12-16 01:44:00 Talley [facility] BASIC METABOLIC PANEL 2021-12-16 01:44:00 [facility] (NA, K, CL, CO2, GLUCOSE, Medica l Branch BUN, CREATININE, CA) POCT GLUCOSE (AUTOMATED) 2021-12-16 01:24:00 Vito Mckeon [facility] PO[facility] GLUCOSE (AUTOMATED) 2021-12-16 01:24:00 Vito Mckeon Uni versity [facility] POCT GLUCOSE (AUTOMATED) 2021-12-16 00:18:00 AlbVito cuenca Uni versity [facility] POCT GLUCOSE (AUTOMATED) 2021-12-16 00:18:00 AlbVito cuenca Uni versity [facility] POCT GLUCOSE (AUTOMATED) 2021-12-15 22:56:00 AlbVito cuenca [facility] PO[facility] GLUCOSE (AUTOMATED) 2021-12-15 22:56:00 Vito Mckeon [facility] BASIC METABOLIC PANEL 2021-12-15 22:03:00 Vito Mckeon [facility] (NA, K, CL, CO2, GLUCOSE, Medica l Branch BUN, CREATININE, CA) BASIC METABOLIC PANEL 2021-12-15 22:03:00 Vito Mckeon [facility] (NA, K, CL, CO2, GLUCOSE, Medica l Branch BUN, CREATININE, CA) POCT GLUCOSE (AUTOMATED) 2021-12-15 21:50:00 Vito Mckeon [facility] POCT GLUCOSE (AUTOMATED) 2021-12-15 21:50:00 Vito Mckeon [facility] POCT GLUCOSE (AUTOMATED) 2021-12-15 20:39:00 Vito Mckeon [facility] POCT GLUCOSE (AUTOMATED) 2021-12-15 20:39:00 Vito Mckeon [facility] POCT GLUCOSE (AUTOMATED) 2021-12-15 18:58:00 AlbVito cuenca Uni [facility] POCT GLUCOSE (AUTOMATED) 2021-12-15 18:58:00 Vito Mckeon [facility] BASIC METABOLIC PANEL 2021-12-15 17:46:00 Vito Mckeon [facility] (NA, K, CL, CO2, GLUCOSE, Medica l Branch BUN, CREATININE, CA) BASIC METABOLIC PANEL 2021-12-15 17:46:00 Vito Mckeon [facility] (NA, K, CL, CO2, GLUCOSE, Medica l Branch BUN, CREATININE, CA) POCT GLUCOSE (AUTOMATED) 2021-12-15 17:39:00 Vito [facility] POCT GLUCOSE (AUTOMATED) 2021-12-15 17:39:00 AlbVito cuenca [facility] POCT GLUCOSE (AUTOMATED) 2021-12-15 16:22:00 Vito Mckeon Uni [facility] POCT GLUCOSE (AUTOMATED) 2021-12-15 16:22:00 RosalindAmandaar [facility] POCT GLUCOSE (AUTOMATED) 2021-12-15 15:27:00 Albjoellen Vito [facility] POCT GLUCOSE (AUTOMATED) 2021-12-15 15:27:00 Albjoellen Vito [facility] POCT GLUCOSE (AUTOMATED) 2021-12-15 14:17:00 Albjoellen Vito [facility] POCT GLUCOSE (AUTOMATED) 2021-12-15 14:17:00 Albustdani [facility] CBC WITHOUT DIFF 2021-12-15 13:33:00 Albustami [facility] CBC WITHOUT DIFF 2021-12-15 13:33:00 Rosalind [facility] POCT GLUCOSE (AUTOMATED) 2021-12-15 13:20:00 Rosalind Vito [facility] POCT GLUCOSE (AUTOMATED) 2021-12-15 13:20:00 Albjoellen [facility] POCT GLUCOSE (AUTOMATED) 2021-12-15 12:13:00 Albjoellen [facility] POCT GLUCOSE (AUTOMATED) 2021-12-15 12:13:00 Rosalind [facility] XR CHEST 1 VW 2021-12-15 11:46:06 [facility] XR CHEST 1 VW 2021-12-15 11:46:06 Rosalind [facility] MAGNESIUM 2021-12-15 10:54:00 [facility] / MSSA SCREEN BY 2021-12-15 10:54:00 [facility], [facility] BASIC METABOLIC PANEL 2021-12-15 10:54:00 Rosalind [facility] (NA, K, CL, CO2, GLUCOSE, Medica l Branch BUN, CREATININE, CA) OSMOLALITY, SERUM OR 2021-12-15 10:54:00 Rosalind Vito [facility] PLASMA Medical Branch PHOSPHORUS 2021-12-15 10:54:00 Rosalind [facility] BETA HYDROXY-BUTYRATE 2021-12-15 10:54:00 Rosalind [facility] PHOSPHORUS 2021-12-15 10:54:00 [facility] MAGNESIUM 2021-12-15 10:54:00 Rosalind [facility] OSMOLALITY, SERUM OR 2021-12-15 10:54:00 Rosalind [facility] PLASMA [facility] BETA HYDROXY-BUTYRATE 2021-12-15 10:54:00 [facility] BASIC METABOLIC PANEL 2021-12-15 10:54:00 [facility] (NA, K, CL, CO2, GLUCOSE, Medica l Branch BUN, CREATININE, CA) MRSA / MSSA SCREEN BY 2021-12-15 10:54:00 [facility] PCR, [facility] POCT GLUCOSE (AUTOMATED) 2021-12-15 10:53:00 Vito Mckeon [facility] POCT GLUCOSE (AUTOMATED) 2021-12-15 10:53:00 Vito Mckeon [facility] POCT GLUCOSE (AUTOMATED) 2021-12-15 08:46:00 Jennifer Olivera [facility] POCT GLUCOSE (AUTOMATED) 2021-12-15 08:46:00 [facility] POCT GLUCOSE (AUTOMATED) 2021-12-15 07:39:00 Jennifer Olivera versity of [facility] POCT GLUCOSE (AUTOMATED) 2021-12-15 07:39:00 Jennifer Olivera versity of [facility] POCT GLUCOSE (AUTOMATED) 2021-12-15 07:02:00 Jennifer Olivera versity of [facility] POCT GLUCOSE (AUTOMATED) 2021-12-15 07:02:00 Jennifer Olivera versity of [facility] POCT GLUCOSE (AUTOMATED) 2021-12-15 06:17:00 Jennifer Olivera versity of [facility] POCT GLUCOSE (AUTOMATED) 2021-12-15 06:17:00 Jennifer Olivera [facility] AC PANEL 21 + LACTIC ACID 2021-12-15 05:36:00 [facility] + LACTIC ACID 2021-12-15 05:36:00 [facility] PO[facility]SE (AUTOMATED) 2021-12-15 04:58:00 Jennifer Olivera [facility] POCT GLUCOSE (AUTOMATED) 2021-12-15 04:58:00 Jennifer Olivera [facility] CT ABDOMEN PELVIS W 2021-12-15 04:33:00 Jennifer Olivera [facility] CONTRAST [facility] CT ABDOMEN PELVIS W 2021-12-15 04:33:00 Jennifer Olivera [facility] COMP. METABOLIC PANEL 2021-12-15 04:20:00 Jennifer Olivera [facility] ([id number]) [facility] COMP. METABOLIC PANEL 2021-12-15 04:20:00 Jennifer Olivera [facility] ([id number]) [facility] CBC WITH DIFF 2021-12-15 03:14:00 Jennifer Olivera [facility] BLOOD CULTURE SCREEN 2021-12-15 03:14:00 Jennifer Olivera [facility] BLOOD CULTURE SCREEN 2021-12-15 03:14:00 Jennifer Olivera [facility] CBC WITH DIFF 2021-12-15 03:14:00 Jennifer Olivera [facility] ACTIVATED PARTIAL 2021-12-15 03:13:00 Jennifer Olivera [facility] / INR 2021-12-15 03:13:00 Jennifer Olivera [facility] LIPASE 2021-12-15 03:13:00 Jennifer Olivera [facility] TROPONIN I 2021-12-15 03:13:00 Jennifer Olivera [facility] N-TERMINAL PRO-BNP 2021-12-15 03:13:00 Jennifer Olivera [facility] LIPASE 2021-12-15 03:13:00 Jennifer Olivera [facility] TROPONIN I 2021-12-15 03:13:00 Jennifer Olivera [place] [facility] PROTHROMBIN TIME / INR 2021-12-15 03:13:00 Jennifer Olivera [facility] ACTIVATED PARTIAL 2021-12-15 03:13:00 Jennifer Olivera [facility] THRMPLAS [facility] N-TERMINAL PRO-BNP 2021-12-15 03:13:00 Jennifer Olivera [facility] LACTIC ACID WHOLE BLOOD 2021-12-15 03:12:[address] [facility] LACTIC ACID WHOLE BLOOD 2021-12-15 03:12:[address] [facility] EKG-12 LEAD 2021-12-15 01:55:16 Doctor Unassigned, No [facility]iver [facility] EKG-12 LEAD 2021-12-15 01:55:16 Doctor Unassigned, No Univer sity of [facility] EMERGENCY DEPARTMENT 2021-12-14 05:01:00 [facility], [facility] 2021-12-14 05:01:00 Doctor Unassigned, No Uni versity of [facility] BASIC METABOLIC PANEL 2021-11-28 09:31:00 [facility] ([facility], K, CL, CO2, GLUCOSE, Medica l Branch BUN, CREATININE, CA) CBC WITH DIFF 2021-11-28 09:31:00 [facility]OLIC PANEL 2021-11-28 09:31:00 [facility] (NA, K, CL, CO2, GLUCOSE, Medica l Branch BUN, CREATININE, CA) CBC WITH DIFF 2021-11-28 09:31:00 [facility] BASIC METABOLIC PANEL 2021-11-27 08:57:00 [facility] (NA, K, CL, CO2, GLUCOSE, Medica l Branch BUN, CREATININE, CA) CBC WITH DIFF 2021-11-27 08:57:00 [facility] BASIC METABOLIC PANEL 2021-11-27 08:57:00 Peng Yadav [facility] (NA, K, CL, CO2, GLUCOSE, Medica l Branch BUN, CREATININE, CA) CBC WITH DIFF 2021-11-27 08:57:00 Leif [facility] CBC WITH DIFF 2021-11-24 10:55:00 Yolis [facility] COMP. METABOLIC PANEL 2021-11-24 10:55:00 Yolis [facility] ([id number]) [facility] N-TERMINAL PRO-BNP 2021-11-24 10:55:00 Yolis [facility] COMP. METABOLIC PANEL 2021-11-24 10:55:00 Yolis [facility] ([id number]) [facility] CBC WITH DIFF 2021-11-24 10:55:00 Yolis [facility] N-TERMINAL PRO-BNP 2021-11-24 10:55:00 Yolis [facility] CBC WITH DIFF 2021-11-23 11:33:00 Carlene Weaver [facility] COMP. METABOLIC PANEL 2021-11-23 11:33:00 Yolis [facility] ([id number]) [facility] N-TERMINAL PRO-BNP 2021-11-23 11:33:00 Yolis [facility] MAGNESIUM 2021-11-23 11:33:00 Yolis [facility] MAGNESIUM 2021-11-23 11:33:00 Yolis [facility] COMP. METABOLIC PANEL 2021-11-23 11:33:00 Yolis [facility] ([id number]) [facility] CBC WITH DIFF 2021-11-23 11:33:00 Carlene Weaver [facility] N-TERMINAL PRO-BNP 2021-11-23 11:33:00 Yolis [facility] ASPIRATE OR ABSCESS 2021-11-22 21:31:00 Imani Fleming [facility] CULTURE(AEROBIC/ANAEROBIC Medica l Branch ) ASPIRATE OR ABSCESS 2021-11-22 21:31:00 Imani Fleming [facility] CULTURE(AEROBIC/ANAEROBIC Medica l Branch ) PROTEIN CREAT RATIO URINE 2021-11-22 11:11:00 Courtney [facility]es [facility] SODI[facility], URINE RANDOM 2021-11-22 11:11:00 Courtney Mendes [facility] SODIUM, URINE RANDOM 2021-11-22 11:11:00 Courtney Mendes [facility] PROTEIN CREAT RATIO URINE 2021-11-22 11:11:00 [facility]ST 1 VW 2021-11-22 11:07:43 Courtney Mendes [facility] XR FOOT 3+ VW LEFT 2021-11-22 11:07:43 Courtney Mendes [facility] XR CHEST 1 VW 2021-11-22 11:07:43 Courtney Mendes [facility] XR FOOT 3+ VW LEFT 2021-11-22 11:07:43 Courtney Mendes [facility] URINE DRUG (IMMUNOASSAY) 2021-11-22 11:07:00 Courtney Mendes [facility] SCREEN URINE DRUG (LCMSMS) - 2021-11-22 11:07:00 Courtney Mendes [facility] OPIATES [facility] URINE DRUG (IMMUNOASSAY) 2021-11-22 11:07:00 Courtney Mendes [facility] DRUG [facility] SCREEN URINE DRUG (LCMSMS) - 2021-11-22 11:07:00 Courtney Mendes [facility] SYNTHETIC OPIATES PANEL Medical Branch SEDIMENTATION RATE 2021-11-22 11:03:00 Courtney Mendes [facility] PROCALCITONIN 2021-11-22 11:03:00 Yolis jennifer [facility] CBC WITH DIFF 2021-11-22 11:03:00 Yolis jennifer [facility] COMP. METABOLIC PANEL 2021-11-22 11:03:00 Yolsi jennifer [facility] ([id number]) [facility] N-TERMINAL PRO-BNP 2021-11-22 11:03:00 Yolis jennifer [facility] MAGNESIUM 2021-11-22 11:03:00 Yolis [facility] PHOSPHORUS 2021-11-22 11:03:00 Yolis [facility] CREATINE KINASE 2021-11-22 11:03:00 Yolis [facility] VITAMIN D, 25-OH 2021-11-22 11:03:00 Yolis [facility] VITAMIN B12, LEVEL 2021-11-22 11:03:00 Yolis [facility] GLYCOSYLATED HEMOGLOBIN 2021-11-22 11:03:00 Yolis [facility] ([address] PHOSPHORUS 2021-11-22 11:03:00 Yolis [facility] CREATINE KINASE 2021-11-22 11:03:00 Yolis [facility] MAGNESIUM 2021-11-22 11:03:00 Yolis [facility] VITAMIN B12, LEVEL 2021-11-22 11:03:00 Yolis [facility] COMP. METABOLIC PANEL 2021-11-22 11:03:00 Yolis jennifer [facility] ([id number]) [facility] SEDIMENTATION RATE 2021-11-22 11:03:00 Yolis [facility] CBC WITH DIFF 2021-11-22 11:03:00 Yolis [facility] GLYCOSYLATED HEMOGLOBIN 2021-11-22 11:03:00 Yolis [facility] ([address] N-TERMINAL PRO-BNP 2021-11-22 11:03:00 Yolis [facility] VITAMIN D, 25-OH 2021-11-22 11:03:00 Yolis [facility] PROCALCITONIN 2021-11-22 11:03:00 Courtney Mendes [facility] CT ANGIOGRAM LOWER 2021-11-22 03:39:00 Jennifer Olivera [facility] EXTREMITY LEFT W CONTRAST Medica l Branch CT ANGIOGRAM LOWER 2021-11-22 03:39:00 Jennifer Olivera [facility] EXTREMITY LEFT W CONTRAST Medica l Branch CT HEAD WO CONTRAST 2021-11-22 03:25:00 Jennifer Olivera [facility] CT HEAD WO CONTRAST 2021-11-22 03:25:00 Jennifer Olivera [facility] URINALYSIS 2021-11-22 01:22:00 Jennifer Olivera [facility] URINE CULTURE 2021-11-22 01:22:00 Jennifer Olivera [facility] URINALYSIS 2021-11-22 01:22:00 Jennifer Olivera [facility] URINE CULTURE 2021-11-22 01:22:00 Jennifer Olivera [facility] CBC WITH DIFF 2021-11-22 00:58:00 Jennifer Olivera [facility] ACTIVATED PARTIAL 2021-11-22 00:58:00 Jennifer Olivera [facility] PROTHROMBIN TIME / INR 2021-11-22 00:58:00 Jennifer Olivera [facility] COMP. METABOLIC PANEL 2021-11-22 00:58:00 Jennifer Olivera [facility] ([id number]) [facility] BLOOD CULTURE SCREEN 2021-11-22 00:58:00 Jennifer Olivera [facility] acute hospital LACTIC ACID WHOLE BLOOD 2021-11-22 00:58:[address] [facility] N-TERMINAL PRO-BNP 2021-11-22 00:58:00 Courtney Mendes [facility] MAGNESIUM 2021-11-22 00:58:00 Yolis jennifer [facility] PHOSPHORUS 2021-11-22 00:58:00 Yolis [facility] FERRITIN SERUM 2021-11-22 00:58:00 Yolis [facility] IRON PANEL 2021-11-22 00:58:00 Yolis jennifer [facility] THYROID STIMULATING 2021-11-22 00:58:00 Yolis [facility] LIPID PANEL ([id number])(TOTAL 2021-11-22 00:58:00 [facility] CHOLESTEROL, Medical Branch TRIGLYCERIDES, HDL) BLOOD CULTURE SCREEN 2021-11-22 00:58:00 Jennifer Olivera [facility] PHOSPHORUS 2021-11-22 00:58:00 Yolis jennifer [facility] MAGNESIUM 2021-11-22 00:58:00 Yolis [facility] FERRITIN SERUM 2021-11-22 00:58:00 Yolis [facility] THYROID STIMULATING 2021-11-22 00:58:00 Yolis jennifer [facility] COMP. METABOLIC PANEL 2021-11-22 00:58:00 Jennifer Olivera [facility] ([id number]) Medical Branch LIPID PANEL (25027)(TOTAL 2021-11-22 00:58:00 Courtney [facility] CHOLESTEROL, Medical Branch TRIGLYCERIDES, HDL) IRON PANEL 2021-11-22 00:58:00 Yolis [facility] CBC WITH DIFF 2021-11-22 00:58:00 Jennifer Olivera [facility] PROTHROMBIN TIME / INR 2021-11-22 00:58:00 Jennifer Olivera [facility] ACTIVATED PARTIAL 2021-11-22 00:58:00 Jennifer Olivera [facility] N-TERMINAL PRO-BNP 2021-11-22 00:58:00 Courtney Mendes [facility] LACTIC ACID WHOLE BLOOD 2021-11-22 00:58:[address] [facility] EMERGENCY DEPARTMENT 2021-11-21 05:01:00 Doctor Unassigned, No [facility] - MISC 2021-11-21 05:01:00 Doctor Unassigned, No [facility] 2021-11-21 05:01:00 Doctor Unassigned, No Uni versity of [facility] EMERGENCY DEPARTMENT 2021-11-21 05:01:00 Doctor Unassigned, No U niversity of [facility] HOSPITAL ADM - MISC 2021-11-21 05:01:00 Doctor Unassigned, No Un iversity of [facility] Spinal puncture, lumbar, 2021-10-24 20:30:00 Tony Gomez diagnostic; with fluoroscopic or CT guidance MAGNESIUM 2021-10-16 04:12:00 [facility] COMP. METABOLIC PANEL 2021-10-16 04:12:00 [facility] ([id number]) [facility] CBC WITH DIFF 2021-10-16 04:12:00 [place], [facility] CT HEAD WO CONTRAST 2021-09-29 00:15:29 Roger Neff [facility] URINALYSIS 2021-09-28 23:53:00 Roger Neff [facility] COMP. METABOLIC PANEL 2021-09-28 23:52:00 Roger Neff [facility] ([id number]) [facility] CBC WITH DIFF 2021-09-28 23:52:00 Roger Neff Cici [facility] XR CHEST 1 VW 2021-08-07 03:03:32 Courtney Mendes [facility] COMP. METABOLIC PANEL 2021-08-06 11:57:00 [facility] ([id number]) [facility] CBC WITH DIFF 2021-08-06 11:57:00 [facility] BASIC METABOLIC PANEL 2021-08-04 12:10:00 [facility] ([facility], K, CL, CO2, GLUCOSE, Medica l Branch BUN, CREATININE, CA) CBC WITH DIFF 2021-08-04 12:09:00 Kosta [facility] URINALYSIS 2021-08-04 00:40:00 Hanh Gunter [facility] URINE CULTURE 2021-08-04 00:40:00 Hanh Gunter [facility] FECES CULTURE 2021-08-03 14:58:00 Kosta [facility] OCCULT (GUAIAC) BLOOD 2021-08-03 14:58:[address] [facility] CLOSTRIDIUM DIFFICILE 2021-08-03 14:58:00 Kosta [facility] FECAL PATHOGENS BY PCR 2021-08-03 14:58:00 [facility] URINE DRUG (IMMUNOASSAY) 2021-08-03 10:11:00 Kosta [facility] SCREEN COVID-19 (ID NOW RAPID 2021-08-03 07:33:00 Carmelita Serna [facility] TESTING) Medical Labolt LAB ONLY COVID 2021-08-03 07:33:00 Carmelita Serna [facility] INTERPRETATION [facility] COMP. METABOLIC PANEL 2021-08-03 06:18:00 Carmelita Serna [facility] ([id number]) [facility] CBC WITH DIFF 2021-08-03 05:40:00 Carmelita Serna [facility] URINALYSIS 2021-08-01 01:43:00 Stephanie Balderrama [facility] LIPASE 2021-08-01 01:40:00 Stephanie Balderrama [facility] COMP. METABOLIC PANEL 2021-08-01 01:40:00 Stephanie Balderrama [facility] ([id number]) [facility] CBC WITH DIFF 2021-08-01 01:38:00 Stephanie Balderrama [facility] XR CHEST 1 VW 2021-07-31 23:40:19 Stephanie Balderrama [facility] ASSIGNMENT OF BENEFITS 2021-07-31 22:05:40 Doctor Unassigned, No [facility] NOTICE OF PRIVACY 2021-07-31 22:04:58 Doctor Unassigned, No [facility] CONSENT/REFUSAL FOR 2021-07-31 22:04:33 Doctor Unassigned, No Un iversity of [place] DIAGNOSIS AND TREATMENT Name Medical Branch URINALYSIS 2021-07-29 23:09:00 Lynette Fonseca [facility] BLOOD CULTURE SCREEN 2021-07-29 23:04:[address] [facility] D-DIMER 2021-07-29 22:49:00 Lynette Fonseca [facility] COVID-19 (ID NOW RAPID 2021-07-29 22:48:00 Lynette Fonseca [facility] TESTING) Medical Branch COMP. METABOLIC PANEL 2021-07-29 22:17:00 Lynette Fonseca [facility] ([id number]) [facility] CBC WITH DIFF 2021-07-29 22:17:00 Lynette Fonseca [facility] XR CHEST 1 VW 2021-07-29 21:47:19 Lynette Fonseca [facility] COMP. METABOLIC PANEL 2021-06-07 22:20:00 Jonathan Sanford [facility] ([id number]) [facility] CBC WITH DIFF 2021-06-07 22:20:00 Jonathan Sanford [place] [facility] CT ABDOMEN PELVIS WO 2020-11-21 00:39:[address] [facility] CONTRAST [facility] Branch LIPASE 2020-11-21 00:06:00 Sony Helmso F [facility] COMP. METABOLIC PANEL 2020-11-21 00:06:00 Madonna Helms Un [facility] ([id number]) [facility] CBC WITH DIFF 2020-11-21 00:06:00 IbSony guzmano F [facility] URINALYSIS 2020-11-21 00:00:00 IbKimberly guzmanusho F [facility] COVID-19 (ID NOW RAPID 2020-11-21 00:00:00 IbSony guzmano [facility] [place] 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 Plan of Care Planned Activity Planned Date Details Comments Source Future Scheduled 2022-07-[address] [facility]:00 (procedure) [code = [facility] 91704137] Future Scheduled 2022-07-[address] [facility] 00:00:00 (procedure) [code = [facility] 96824249] Future Scheduled 2022-07-[address] [facility] 00:00:00 (procedure) [code = [facility] 97562841] Future Scheduled 2022-07-[address] [facility] 00:00:00 (procedure) [code = [facility] 25042454] Future Scheduled 2022-03-15 INFLUENZA VACCINE (#1) C [...] [facility] 00:[facility]:00 (Season Ended) [[facility] INFLUENZA VACCINE (Season Ended)] Future Scheduled 2020-07-[address] [facility] 00:00:00 (12+) [code = [facility] Center DEPRESSION SCREENING (12+)] Future Scheduled 2019-10-[address] [facility]00 measurement [facility] (procedure) [code = 03754233] Future Scheduled 2019-10-[address] [facility] 00[facility] (procedure) [code = 95027974] Future Scheduled 2019-10-[address] [facility] 00[facility] (procedure) [code = 90295325] Future Scheduled 2019-10-[address] [facility] 00:00:00 [facility] (procedure) [code = 75502902] Future Scheduled 2004 DTAP/TDAP/TD VACCINES CH I [...] 00:00:00 protein (procedure) Medical Center [code = 616296659] Future Scheduled 1995 DIABETIC EYE EXAM [facility] 00:00:00 [code = DIABETIC EYE Medical Center EXAM] Future Scheduled 1995 Urine screening for [facility] 00:00:00 protein (procedure) Medical Center [code = 631961404] Future Scheduled 1995 DIABETIC EYE EXAM [facility] 00:00:00 [code = DIABETIC EYE Medical Center EXAM] Future Scheduled 1995 Urine screening [facility] 00:00:00 protein (procedure) Medical Center [code = 681838260] Future Scheduled 1995 DIABETIC EYE EXAM [facility] 00:00:00 [code = DIABETIC EYE Medical Center EXAM] Future Scheduled 1995 Urine screening [facility] 00:00:00 protein (procedure) Medical Center [code = 940754021] Future Scheduled [address] [...] Facility Department ID 2022-11-23 Out[facility] [id number] Common 10:47:00 Eren [id number] [facility] 2022-09-10 Outpatient [facility] [id number] [place] 15:02:41 0227 [facility] 2022-08-21 Outpatient Nichole, STLMLC [facility] [id number] Common 15:24:00 Eren [id number] [facility] 2022-06-25 Outpatient [facility] [id number] [place] 10:51:49 1212 [facility] 2021-10-23 Outpatient [facility] [id number] [place] 08:22:27 0411 [facility] 2021-10-09 Outpatient [facility] [id number] [place] 11:10:01 0328 [facility] 2021-08-09 Outpatient Nichole, STLMLC [facility] [id number] Common 13:45:16 Eren [id number] [facility] 2021-08-09 Outpatient Nichole, STLC [facility] [id number] Common 13:17:39 Eren [id number] [facility] 2021-08-09 Outpatient Nichole, STLMLC [facility] [id number] Common 13:16:34 Eren 95512 [facility] 2022-12-12 2022-12-12 Patient PHILLY HoranAnish [id number] Univers 00:00:00 00:00:00 Outreach Ann Katarzyna GILLESPIE [id number] i [id number] [id number] [facility] 403 Branch 2022-11-23 2022-11-23 Outpatient [facility] [id number] Univers 14:00:00 14:00:00 ALHAJI ity [facility] 2022-11-22 2022-11-22 Outpatient R [facility] [id number] Univers 14:00:00 14:00:00 ity [facility] 2022-11-22 2022-11-22 Telephone Mayank [facility] [id number] Univers 00:00:00 00:00:00 Ursula A HEALTH [id number] ity of [place] [id number] Tim as VICENTA?BLEA [id number] [address] MEDICAL OFFICE [facility] 2022-11-21 2022-11-21 Outpatient [facility] [id number] Univers 13:30:00 13:30:00 ALHAJI ity [facility] 2022-11-09 2022-11-09 Emergency X [facility] ERT [id number] Univers 14:23:00 19:32:00 , SUZANNE ity [facility] 2022-11-09 2022-11-09 Emergency [facility] [id number] Univers 14:23:00 19:32:00 , Suzanne [facility] [id number] i ty of [place] [id number] [address] 2022-11-09 2022-11-09 Outpatient R [facility] [id number] Univers 13:00:00 13:00:00 ity of [facility] 2022-11-09 2022-11-09 Telephone Amie Yudi [facility] [id number] Univers 00:00:00 00:00:00 HEALTH [id number] it y of [facility] [id number] Tim as VICENTA?BLEA [id number] [address] MEDICAL OFFICE [facility] 2022-11-07 2022-11-07 Outpatient [facility] [id number] Univers 14:00:00 14:00:00 ALHAJI ity of [facility] 2022-11-07 2022-11-07 Telephone Amie [facility] [id number] Univers 00:00:00 00:00:00 HEALTH [id number] it y of [place] 4.2.7.2.686 Tim as VICENTA?BLEA [id number] Ks sabra [facility] [address] MEDICAL OFFICE [facility] 2022-11-07 2022-11-07 Orders Doctor ORION [id number] Univers 00:00:00 00:00:00 Only Unassigned, CHRISTINE 350.1.13.10 ity of [place] [facility] 4.2.7.2.686 Tim as [id number] [address] 2022-11-06 2022-11-06 Telephone [facility] [id number] Univers 00:00:00 00:00:00 Ursula A HEALTH [id number] ity of [place] 4.2.7.2.686 Tim as VICENTA?BLEA [id number] [address] OFFICE [facility] 2022-11-05 2022-11-05 Outpatient R YUDI HOLLOWAY [facility] [id number] Univers 16:30:00 16:30:00 [facility] 2022-11-05 2022-11-05 Telephone Amie [facility] [id number] Univers 00:00:00 00:00:00 HEALTH [id number] it y of [place] 4.2.7.2.686 Tim as VICENTA?BLEA [id number] [place] sabra DWYER [address] [facility] OFFICE [facility] 2022-11-01 2022-11-01 Telephone Amie [facility] [id number] Univers 00:00:00 00:00:00 HEALTH [id number] it y of [place] 4.2.7.2.686 Tim as VICENTA?BLEA [id number] [place] sabra BLANDON [address] MEDICAL OFFICE [facility] 2022-10-31 2022-10-31 Emergency X JAROD [facility] ERT [id number] Univers 14:34:00 20:52:00 [facility] 2022-10-31 2022-10-31 Emergency [facility] [id number] Univers 14:34:00 20:52:00 Jennifer DURAN [id number] i ty of [facility] 4.2.7.2.[place] [id number] [facility] [address] 2022-10-31 2022-10-31 Outpatient R YUDI HOLLOWAY [facility] [id number] Univers 13:00:00 14:32:40 YUDI [facility] 2022-10-31 2022-10-31 Office Amie [facility] [id number] Univers 13:00:00 14:32:40 Visit HEALTH [id number] it y of [facility] 4.2.7.2.686 Tim as VICENTA?BLEA [id number] Ks dicgabbi [facility] [address] [facility] OFFICE [facility] 2022-10-31 2022-10-31 Telephone Amie [facility] [id number] Univers 00:00:00 00:00:00 HEALTH [id number] it y of [facility] 4.2.7.2.686 Tim as VICENTA?BLEA [id number] [facility] 220 [facility] 2022-10-29 2022-10-29 Telephone [facility] [id number] Univers 00:00:00 00:00:00 Alhaji [facility] [id number] i ty of [facility] 4[place]2.[place].2.[place] PROF[place] [id number] [place]s dicgabbi [facility] [address] [facility] 2022-10-25 2022-10-25 Outpatient R MARTINA [facility] [id number] Univers 14:00:00 14:45:52 [facility] 2022-10-23 2022-10-23 Telephone [facility] [id number] Univers 00:00:00 00:00:00 Alhaji [place] 350.1.13.10 i ty of [place].2.7.[place] [phone] [place] dical NAL [address] [facility] 2022-10-21 2022-10-21 Emergency X [facility] ERT [id number] Univers 16:59:00 23:22:00 LYNETTE ity of [facility] 2022-10-21 2022-10-21 Emergency [facility] 1.2.364.848 [id number] Univers 16:59:00 23:22:00 Lynette G RENEE 350.1.13.10 ity of [place] [id number] [place] [id number] [place] 2022-10-12 2022-10-12 Outpatient R MARTINA [facility] [id number] Univers 13:00:00 13:49:32 ALHAJI ity [facility] 2022-10-12 2022-10-12 Nurse Nurse, Adc Surgery [facility] 1.2. 840.114 [id number] Univers 13:00:00 13:49:32 Visit Alhaji Inman 350.1.13.10 ity of [place] [id number] [place] sabra GOMEZ [address] [facility] 2022-10-10 2022-10-10 Telephone Yudi Holloway [facility] 1.2.214.244 [id number] Univers 00:00:00 00:00:00 HEALTH 350.1.13.10 it y [facility] 4.2.7.2.686 Tim as VICENTA?BLEA [phone] [place]s jasgabbi DWYER [address] [place] MEDICAL OFFICE BUILDING 2022-10-05 2022-10-05 Emergency X [facility] ERT [id number] Univers 15:37:00 21:02:00 MADONNA ity [facility] 2022-10-05 2022-10-05 Emergency [facility] 1.2.840.114 10 [id number] Univers 15:37:00 21:02:00 Madonna DURAN 350.1.13.10 ity of [place].2.[place] [id number] [facility] [address] 2022-09-24 2022-09-24 Outpatient R YUDI HOLLOWAY [facility] [id number] Univers 14:30:00 14:30:00 [facility] 2022-09-12 2022-09-12 Outpatient R MARTINA [facility] [id number] Univers 13:30:00 13:30:00 ALHAJI ity [facility] 2022-09-07 2022-09-07 Transition DEVANTE Zepeda 1.2.840.114 [id number] Univers 00:00:00 00:00:00 of Care Kamila G[place] 350.1.13.10 ity of [place]2.7.2.686 [place] [id number] [facility] [address] [place] 2022-09-03 2022-09-06 Inpatient X AB WOLFF [facility] [id number] Univers 18:47:00 14:22:00 AB [facility] 2022-09-03 2022-09-06 [facility] 1.2.8 40.114 [id number] Univers 18:47:00 14:22:00 Encounter [facility] 350.1.13.10 ity of [place] 4.2.7.2.686 [place] [id number] [address] ([facility]) 2022-09-06 2022-09-06 Patient DEVANTE Horan 1.2.840.114 [id number] Univers 00:00:00 00:00:00 Outreach Ann GILLESPIE 350.1.13.10 i ty of [place].2.[place] [phone] [facility] [address] 2022-09-05 2022-09-05 Surgery Saud [facility] 1.2.840.114 [id number] Univers 13:29:00 15:37:00 Mejia PENNY 350.1.13.10 ity of [place].2.[place] C[place] AT [phone] [place] sabra LE 020 [facility] 2022-09-04 2022-09-04 Telephone Yudi Holloway [facility] 1.2.750.057 [id number] [id number] Univers 00:00:00 00:00:00 HEALTH 350.1.13.10 it y of [place] 4.2.7.2.686 Tim as VICENTA?BLEA [phone] [place] sabra DWYER 220 [facility] OFFICE [facility] 2022-09-03 2022-09-03 Patient DEVANTE Dawson 1.2.840.114 [id number] Univers 00:00:00 00:00:00 Outreach Randall STEVENSY 350.1.13.10 [place]y of [place] [id number] [address] 2022-08-29 2022-08-29 Telephone Yudi Holloway [facility] 1.2.535.169 [id number] [id number] Univers 00:00:00 00:00:00 HEALTH 350.1.13.10 it y of [place] 4.2.7.2.686 Tim as VICENTA?BLEA [phone] [facility] DW[facility] [address] [place] [address] OFFICE [facility] 2022-08-28 2022-08-28 Patient DEVANTE Dawson 1.2.840.114 [id number] Univers 00:00:00 00:00:00 Outreach Randall [place] 350.1.13.10 [place] [id number] [address] 2022-08-28 2022-08-28 Aleah Oro [facility] 1.2.840.114 10 [id number] Univers 00:00:00 00:00:00 [facility] HEALTH 350.1.13.10 ity of [place] 4.2.7.2.686 Tim as VICENTA?BLEA [phone] [facility] DWYER 220 [facility] 2022-08-27 2022-08-27 Emergency X SINGER [facility] ERT [id number] Univers 13:47:00 18:16:00 JONATHAN saba [facility] 2022-08-27 2022-08-27 Emergency Singer [facility] 1.2.993.666 [id number] Univers 13:47:00 18:16:00 Jonathan DURAN 350.1.13.10 i ty [place].2.[place] [id number] [address] 2022-08-27 2022-08-27 Telephone Yudi Holloway [facility] 1.2.333.607 [id number] [id number] Univers 00:00:00 00:00:00 HEALTH 350.1.13.10 it y of [place] 4.2.7.2.686 Tim as VICENTA?BLEA [phone] [address] MEDICAL OFFICE [facility] 2022-08-24 2022-08-25 Emergency [facility] [id number] Univers 16:13:00 00:01:00 MADONNA saba [facility] 2022-08-24 2022-08-25 Emergency [facility] 1.2.840.114 10 [id number] Univers 16:13:00 00:01:00 Folandriao F RENEE 350.1.13.10 ity of [place] [id number] [address] 2022-08-24 2022-08-24 Patient Lisbeth Carter 1.2.840.114 10 [id number] Univers 00:00:00 00:00:00 Outreach E GILL[place]PI[place] 350.1.13.10 i ty of [place] [id number] [address] 2022-08-24 2022-08-24 Telephone Yudi Holloway [facility] 1.2.056.780 [id number] [id number] Univers 00:00:00 00:00:00 HEALTH 350.1.13.10 it y of [place] 4.2.7.2.686 Tim as VICENTA?BLEA [phone] [address] MEDICAL OFFICE [facility] 2022-08-23 2022-08-23 Emergency X ONOFRE [facility] ERT [id number] Univers 15:06:00 19:05:00 SUSAN saba [facility] 2022-08-23 2022-08-23 Emergency Onofre, [facility] 1.2.840.114 10 [id number] Univers 15:06:00 19:05:00 Susan DURAN 350.1.13.10 ity of [place].2.[place] [id number] [facility] [address] 2022-08-15 2022-08-16 Outpatient X YOLIS [facility] [id number] Univers 14:05:00 19:22:00 ADNAN ity of [facility] 2022-08-15 2022-08-16 Emergency Jennifer Olivera [facility] 1.2.840. 114 [id number] Univers 14:05:00 19:22:00 Courtney Mendes 350.1.13.10 ity of [place].2.[place] [id number] [facility] [address] [place] 2022-08-13 2022-08-13 Patient Lisbeth Carter 1.2.840.114 10 [id number] Univers 00:00:00 00:00:00 Outreach E [place] 350.1.13.10 i ty of [place]2.[place] [id number] [facility] [address] 2022-07-15 2022-07-15 Patient Yudi Holloway [facility] 1.2.840.114 [id number] Univers 00:00:00 00:00:00 Secure [facility] 350.1.13.10 ity of [place] 4.2.7.2.686 Tim as VICENTA?BLEA [phone] [place] sabra DWYER [address] [place] MEDICAL OFFICE BUILDING 2022-07-05 2022-07-05 Outpatient R MARTINA [facility] [id number] Univers 13:00:00 15:17:50 ALHAJI wandy [facility] 2022-07-05 2022-07-05 Office [facility] 1.2.840.114 [id number] Univers 13:00:00 15:17:50 Visit Alhaji DURAN 350.1.13.10 i ty of [place] [phone] [place] sabra GOMEZ 204 [facility] 2022-07-05 2022-07-05 Orders Doctor ORION 1.2.840.114 [id number] Univers 00:00:00 00:00:00 Only Unassigned, CHRISTINE 350.1.13.10 ity of [place] [facility] 4.2.7.2.686 Tim as [phone] [facility] [address] [place] 2022-06-25 2022-06-25 Outpatient R YUDI HOLLOWAY [facility] [id number] Univers 13:00:00 13:39:07 YUDI HOLLOWAY [facility] 2022-06-25 2022-06-25 Office Yudi Holloway [facility] 1.2.840.114 [id number] Univers 13:00:00 13:39:07 Visit HEALTH 350.1.13.10 it y of [place] 4.2.7.2.686 Tim as VICENTA?BLEA [phone] [place] sabra DWYER 220 [facility] 2022-06-25 2022-06-25 Lab Intern [facility], [facility] 1.2.840.1 14 [id number] Univers 12:45:00 13:00:00 Visit Yudi Holloway [facility] 350.1.13.10 it y of [place] 4.2.7.2.686 Tim as VICENTA?BLEA [phone] [place]s sabra DWYER 353 [facility] 2022-05-20 2022-05-21 Outpatient X GEO [facility] [id number] Univers 16:26:00 17:36:00 NEGAR saba [facility] 2022-05-20 2022-05-21 Emergency Lynette Fonseca [facility] 1.2.840 .114 [id number] Univers 16:26:00 17:36:00 Negar Guardado 350.1.13.10 ity of [place].2.[place].2.[place] [id number] [facility] [address] [place] 2022-05-14 2022-05-14 Emergency X JAMAL, [facility] ERT [id number] Univers 20:12:00 22:15:00 STEPHANIE saba [facility] 2022-05-14 2022-05-14 Emergency Cacace, [facility] 1.2.648.334 [id number] Univers 20:12:00 22:15:00 Stephanie DURAN 350.1.13.10 ity of [place] 4.2.7.2.686 [facility] [id number] [facility] [address] 2022-05-12 2022-05-12 Emergency X [facility] ERT [id number] Univers 19:14:00 22:40:00 WAKILI ity [facility] 2022-05-12 2022-05-12 [facility] 1.2.550.714 3069 [id number] Univers 19:14:00 22:40:00 Carmelita Polo RENEE 350.1.13.10 ity of [place] 4.2.7.2.686 [facility] [phone] [facility] [address] 2022-05-08 2022-05-08 Transition DEVANTE Zepeda 1.2.840.114 [id number] Univers 00:00:00 00:00:00 of Care Kamila GILLESPIE 350.1.13.10 ity of [place] 4.2.7.2.686 [facility] [phone] [facility] [address] 2022-05-04 2022-05-06 In[facility] [id number] Univers 00:19:00 12:45:00 KAYLEE ity [facility] 2022-05-04 2022-05-06 [facility] 1.2.8 40.114 [id number] Univers 00:19:00 12:45:00 Encounter Kaylee Argueta RENEE 350.1.13.10 ity of [facility] 4.2.7.2.686 [facility] [phone] [place] [address] Branch 2022-05-01 2022-05-01 Outpatient Adriano PAUL [facility] [id number] Univers 08:00:00 08:00:00 SARAH BETH ity [facility] 2022-04-23 2022-04-23 Outpatient R BEVERLY [facility] [id number] Univers 08:00:00 08:00:00 SARAH BETH ity [facility] 2022-04-04 2022-04-04 Outpatient R AMIE, BAGLEY [facility] [id number] Univers 14:00:00 14:00:00 YUDI HOLLOWAY ity [facility] 2022-04-02 2022-04-02 Outpatient R BEVERLY [facility] [id number] Univers 08:30:00 08:30:00 SARAH BETH ity [facility] 2022-03-12 2022-03-12 Outpatient R BEVERLY [facility] [id number] Univers 08:00:00 08:00:00 SARAH BETH ity [facility] 2022-03-02 2022-03-02 [facility] [id number] Univers 11:30:00 11:30:00 SARAH BETH ity [facility] 2022-03-01 2022-03-01 Telephone ORION Golden 1.2.840.114 [id number] Univers 00:00:00 00:00:00 Vesta KING 350.1.13.10 i ty of [facility] 4.2.7.2.686 Tim as [phone] [facility] [address] 2022-03-01 2022-03-01 Telephone Renetta CTMINO 1.2.740.824 [id number] 1965 Univers 00:00:00 00:00:00 Concetta CANTU 350.1.13.10 ity of [place].7.2.686 [place] [id number] [facility] [place] [address] [facility] 2022-02-26 2022-02-26 Transition DEVANTE Alvarado 1.2.840.114 [id number] Univers 00:00:00 00:00:00 of Care Kristie GILLESPIE 350.1.13.10 i ty of [place] 4.2.7.2.[place] [id number] [facility] [address] 2022-02-14 2022-02-23 Inpatient VICTORINO HORVATH [facility] [place] [id number] Univers 22:57:00 15:56:00 ity of [facility] 2022-02-14 2022-02-23 [facility] Vic Mcdonald 1.2.840. 114 [id number] Univers 22:57:00 15:56:00 Encounter Royer Brooke CHRISTINE 350.1 .13.10 ity of [place] Martinez [facility] 4.2.7.2.686 [place] Adonis Talley G [phone] [facility] [address] 2022-02-20 2022-02-20 Anesthesia Heide Abraham 1.2.84 0.114 [id number] Univers 11:25:00 12:55:00 Event Huy Singh CHRISTINE 350.1.13.10 ity of [facility] 4.2.7.2.686 Tim as [id number] [facility] [address] 2022-02-20 2022-02-20 Surgery IVAN Paul 1.2.373.203 0581 3251 Univers 10:12:00 11:55:00 Sarah Beth SEALY 350.1.13.10 ity of [facility] 4.2.7.2.686 Tim as [id number] [facility] [address] 2022-02-14 2022-02-14 Travel 1.2.840.1 1.2.598.588 2380 [id number] Univers 00:00:00 00:00:00 04353.1.1 350.1.13.10 ity of 3.104.2.7 4.[place].7.3.698 [place] .3.005664 084.8 Medica l .8 Branch 2022-02-12 2022-02-12 Transition Duane, 1.2.840.7 [id number] Univers 00:00:00 00:00:00 of Care Kamila 83945.1.1 i ty of 3.104.2.7 [place] .3.970851 Medica l .8 Branch 2022-02-06 2022-02-10 Inpatient X CATHLEEN CTMINO [place] [id number] Univers 18:31:00 18:27:00 KENDALL ity of [facility] 2022-02-06 2022-02-10 [facility] Carlene Alcantara 1.2.840.1 [id number] Univers 18:31:00 18:27:00 Encounter Kaylee Argueta 30593.1.1 ity of [place]olly 3.104.2.7 [place] .3.291699 Medica l .8 [place] 2022-02-07 2022-02-07 Outpatient Adriano [facility] 1041 [id number] Univers 13:00:00 13:00:00 SHAHBAZ ity o [facility] 2022-02-06 2022-02-06 Travel 1.2.840.1 1.2.500.266 4385 [id number] Univers 00:00:00 00:00:00 25862.1.1 350.1.13.10 ity of 3.104.2.7 4.2.7.3.698 [place] .3.004658 084.8 Medica l .8 [place] 2022-01-26 2022-01-26 Emergency X [facility] [id number] Univers 17:06:00 23:29:00 JONATHAN itlizet [facility] 2022-01-26 2022-01-26 Emergency Randall Sands 1.2.840.1 1008 [id number] Univers 17:06:00 23:29:00 Anthony Sanfordip 64219.1.1 ity of 3.104.2.7 [place] .3.325099 Medica l .8 [place] 2022-01-26 2022-01-26 Travel 1.2.840.1 1.2.495.315 3873 2220 Univers 00:00:00 00:00:00 33213.1.1 350.1.13.10 ity of 3.104.2.7 4.2.7.3.698 [place] .3.247942 084.8 Medica l .8 [place] 2022-01-19 2022-01-19 Outpatient Adriano [facility] 1040 [id number] Univers 14:00:00 14:00:00 SHAHBAZ wandy stephanie atkins [facility] 2022-01-17 2022-01-17 Emergency X JAROD [facility] ERT [id number] Univers 04:52:00 08:20:00 JENNIFER ity of [facility] 2022-01-17 2022-01-17 Emergency Olivera, 1.2.840.0 [id number] Univers 04:52:00 08:20:00 Jennifer 51464.1.1 ity of 3.104.2.7 [place] .3.427692 Medica l .8 Branch 2022-01-17 2022-01-17 Travel 1.2.840.1 1.2.819.291 4338 5013 Univers 00:00:00 00:00:00 74004.1.1 350.1.13.10 ity of 3.104.2.7 4.2.7.3.698 [place] .3.658224 084.8 Medica l .8 [place] 2022-01-16 2022-01-16 Transition Zepeda, 1.2.840.9 [id number] Univers 00:00:00 00:00:00 of Care Kamila 90175.1.1 i ty of 3.104.2.7 [place] .3.509712 Medica l .8 [place] 2022-01-09 2022-01-12 Inpatient X BUENROSTRO [facility] [id number] Univers 20:31:00 21:18:00 COMPA ity of [facility] 2022-01-09 2022-01-12 Hospital Jennifer Olivera 1.2.840.1 [id number] [id number] Univers 20:31:00 21:18:00 Encounter Dontae Talley 36624.1.1 ity of Ashutosh [place] 3.104.2.7 [place] .3.564817 Medica l .8 [place] 2022-01-10 2022-01-10 Transition Zepeda, 1.2.840.1 [id number] Univers 00:00:00 00:00:00 of Care Kamila 71873.1.1 i ty of 3.104.2.7 [place] .3.241663 Medica l .8 Branch 2022-01-09 2022-01-09 Travel 1.2.840.1 1.2.028.091 3843 6235 Univers 00:00:00 00:00:00 13948.1.1 350.1.13.10 ity of 3.104.2.7 4.2.7.3.698 [place] .3.762653 084.8 Medica l .8 Branch 2022-01-08 2022-01-08 Transition Zepeda, 1.2.840.9 [id number] Univers 00:00:00 00:00:00 of Care Kamila 95221.1.1 i ty of 3.104.2.7 [place] .3.908639 Medica l .8 [place] 2022-01-04 2022-01-06 Inpatient X GEO [facility] [id number] Univers 22:21:00 16:16:00 NEGAR itlizet [facility] 2022-01-04 2022-01-06 Hospital Vadim Ferreira 1.2.840.3 [id number] [id number] Univers 22:21:00 16:16:00 Encounter Negar Guardado 66388.1.1 ity of 3.104.2.7 [place] .3.927163 Medica l .8 [place] 2022-01-04 2022-01-04 Travel 1.2.840.1 1.2.872.216 5811 3062 Univers 00:00:00 00:00:00 44032.1.1 350.1.13.10 ity of 3.104.2.7 4.2.7.3.698 [place] .3.698053 084.8 Medica l .8 [place] 2021-12-19 2021-12-22 [facility] [id number] 5082 Univers 18:25:00 19:30:00 FARZADLizet ity [facility] 2021-12-19 2021-12-22 Emergency Mario Johnson 1.2.840.9 [id number] [id number] Univers 18:25:00 19:30:00 Kaylee Argueta 43439.1.1 ity of 3.104.2.7 [place] .3.082913 Medica l .8 Branch 2021-12-20 2021-12-20 Travel 1.2.840.1 1.2.524.603 7411 2645 Univers 00:00:00 00:00:00 99932.1.1 350.1.13.10 ity of 3.104.2.7 4.2.7.3.698 [place] .3.865398 084.8 Medica l .8 Branch 2021-12-19 2021-12-19 Travel 1.2.840.1 1.2.850.096 7858 5045 Univers 00:00:00 00:00:00 57565.1.1 350.1.13.10 ity of 3.104.2.7 4.2.7.3.698 [place] .3.267726 084.8 Medica l .8 Branch 2021-12-19 2021-12-19 Transition Alvarado, 1.2.840.7 [id number] Univers 00:00:00 00:00:00 of Heidy Johnson 23399.1.1 ity of 3.104.2.7 [place] .3.853668 Medica l .8 Branch 2021-12-14 2021-12-18 Inpatient X SHAIKH [facility] [id number] Univers 20:53:00 18:25:00 KIRIT atkins [facility] 2021-12-14 2021-12-18 [facility] Jennifer Olivera 1.2.840.1 [id number] Univers 20:53:00 18:25:00 Encounter Vito Mckeon 39110.1.1 ity of [place], Thomas 3.104.2.7 [place] Daily Burger H .3.532838 [facility] Kirit Lara .8 Branch 2021-12-14 2021-12-14 Travel 1.2.840.1 1.2.135.150 1777 3172 Univers 00:00:00 00:00:00 21360.1.1 350.1.13.10 ity of 3.104.2.7 4.2.7.3.698 [place] .3.363629 084.8 Medica l .8 Branch 2021-11-29 2021-11-29 Transition Zepeda, 1.2.840.8 [id number] Univers 00:00:00 00:00:00 of Care Kamila 52152.1.1 i ty of 3.104.2.7 [place] .3.881139 Medica l .8 [place] 2021-11-21 2021-11-28 Inpatient X YOLIS [facility] [id number] Univers 19:10:00 17:32:00 ADNAN ity of [facility] 2021-11-21 2021-11-28 [facility] Jarod Jennifer 1.2.840.1 [id number] [id number] Univers 19:10:00 17:32:00 Encounter Courtney Mendes 06024.1.1 ity of 3.104.2.7 [place] .3.325861 Medica l .8 [place] 2021-11-21 2021-11-21 Travel 1.2.840.1 1.2.953.320 6734 6685 Univers 00:00:00 00:00:00 62406.1.1 350.1.13.10 ity of 3.104.2.7 4.2.7.3.698 [place] .3.328094 084.8 Medica l .8 [place] 2021-10-24 2021-10-[address] [facility] 5510 [id number] Memoria 12:00:00 22:50:[address] 2021-10-24 2021-10-25 Observatio [facility] 5510 [id number] Memoria 12:00:00 22:50:[address] 2021-10-24 2021-10-25 Outpatient U HUMBERTO, [facility] 2097 [facility] 07:00:00 17:50:00 [facility] 2021-10-24 2021-10-25 Outpatient Humberto, [facility] 5510 [id number] 07:00:00 17:50:00 Edilberto Frankel 2021-10-20 2021-10-20 Outpatient Humberto, [facility] 5510 [id number] 18:14:00 18:14:00 Edilberto Frankel 2021-10-15 2021-10-16 Emergency X [facility] ERT [id number] Univers 22:45:00 01:52:00 JONATHAN saba [facility] 2021-10-15 2021-10-16 Emergency [facility] 1.2.742.690 [id number] [id number] Univers 22:45:00 01:52:00 Jonathan DURAN 350.1.13.10 i [facility] 4.2.7.2.686 [facility] [id number] [address] 2021-10-06 2021-10-10 Inpatient [facility] [id number] Memoria 05:12:00 15:30:[address] 2021-10-06 2021-10-10 Inpatient [facility] [id number] Memoria 05:12:00 15:30:[address] 2021-10-06 2021-10-10 Outpatient [facility], [facility] [id number] 00:12:00 10:30:00 Josemanuel Silverio CooperBagley 2021-10-06 2021-10-06 Emergency [facility] [id number] Memoria 02:51:00 02:51:[address] 2021-10-06 2021-10-06 Emergency [facility] [id number] Memoria 02:51:00 02:51:[address] 2021-10-06 2021-10-06 Outpatient [facility], [facility] [id number] 00:12:00 00:12:00 Josemanuel Silverio [place] 2021-10-05 2021-10-05 Outpatient [facility], [facility] [id number] 21:51:00 21:51:00 Josemanuel Chan 2021-09-28 2021-09-28 Emergency X Roger NEFF [facility] ERT [id number] Univers 18:08:00 22:51:00 itlizet [facility] 2021-09-28 2021-09-28 Emergency Roger Neff [facility] [id number] Univers 18:08:00 22:51:00 Cici DURAN [id number] i ty of [place] [id number] [facility] [phone] [facility] [address] 2021-08-09 2021-08-09 Transition DEVANTE Zepeda [id number] Univers 00:00:00 00:00:00 of Care Kamila GILLESPIE [id number] ity of [place] [id number] [facility] [phone] [facility] [address] 2021-08-02 2021-08-08 Inpatient X [facility] [id number] Univers 19:07:00 19:39:00 CARMELITA ity [facility] 2021-08-02 2021-08-08 [facility] 1.2.840. [id number] Univers 19:07:00 19:39:00 Encounter Kaylee Argueta [id number] ity of [place] 4.2.7.2.[address] [place] [address] [id number] [place] 965511 Branch 2021-07-31 2021-07-31 Emergency X CACACE, [facility] ERT [id number] Univers 14:41:00 22:07:00 STEPHANIE saba [facility] 2021-07-31 2021-07-31 Emergency Cacace, [facility] [id number] Univers 14:41:00 22:07:00 Stephanie DURAN [id number] ity of [place] 4.2.7.2.[address] [place] [address] [phone] [place] [address] Branch 2021-07-29 2021-07-29 Emergency X [facility] ERT [id number] Univers 14:49:00 21:33:00 LYNETTE saba [facility] 2021-07-29 2021-07-29 Emergency Drever, [facility] [id number] Univers 14:49:00 21:33:00 Lynette DURAN [id number] ity of [place] [id number] [place] [id number] 2021-07-11 2021-07-11 Laboratory Only, Ang Db Test [facility] 1.2.8 40.114 [id number] Univers 18:00:00 18:15:00 Only Aracelis Lundberg [facility] [id number] itBrittani 4.2.7.2.686 Tim as VICENTA?BLEA [id number] [address] MEDICAL OFFICE BUILDING 2021-07-11 2021-07-11 Outpatient R SAILAJA [facility] [id number] Univers 18:00:00 18:00:00 [facility]IS [facility] 2021-07-05 2021-07-05 (TEL) STLMLC STLMLC [id number] Co mmon 00:00:00 00:00:00 [facility] 2021-07-04 2021-07-04 (ESTPT) STLMLC STLMLC [id number] Co mmon 00:00:00 00:00:00 Renaye Navin rit d Patient - [facility] 2021-06-07 2021-06-07 Emergency X SANFORD, [facility] ERT [id number] Univers 15:54:00 18:34:00 [facility]ONATHAN [facility] 2021-06-07 2021-06-07 [facility] [id number] Univers 15:54:00 18:34:00 Jonathan RENEE [id number] jeanne Elias [id number] [facility] [id number] [address] 2021-04-25 2021-04-25 (TEL) STLMLC STLMLC [id number] Co mmon 00:00:00 00:00:00 [facility] 2021-04-11 2021-04-11 (ESTPT) STLMLC STLMLC [id number] Co mmon 00:00:00 00:00:00 Establishe Spi rit d Patient - [facility] 2021-02-21 2021-02-21 (TEL) STLMLC STLMLC [id number] Co mmon 00:00:00 00:00:00 [facility] 2021-01-31 2021-01-31 (ESTPT) STLMLC STLC [id number] Co mmon 00:00:00 00:00:00 Karen snell Patient - [facility] 2021-01-03 2021-01-03 [facility] [id number] Co mmon 00:00:00 00:00:00 VISIT NEW Spir it PT LEVEL 3 - [facility] 2020-11-20 2020-11-20 Emergency [facility] [id number] [facility] 18:22:00 22:21:00 Madonna Duran [facility]13.10 [facility]2.686 [facility] [id number] [address] 2020-11-20 2020-11-20 Emergency [facility] [id number] 18:22:00 22:21:00 Madonna Moraton 350.1.13.10 [place] 4.2.7.2.686 [place] [id number] [facility] 2020-11-20 2020-11-20 Emergency X [facility] ERT [id number] 18:22:00 18:22:00 [facility]-02 2019-03-04 Phone nullFlavo MNA [id number] [facility]oria 16:11:26 04:59:59 Message r Neurosurger 08 l y [facility] 2019-03-02 2019-03-04 Phone nullFlavo MNA [id number] Memoria 16:11:26 04:59:59 Message r Neurosurger 08 l y [facility] 2019-03-02 2019-03-03 Outpatient MHMISCHER MISCHER [id number] 11:11:26 23:59:59 2019-02-10 2019-02-12 Phone nullFlavo MNA [id number] [facility]oria 16:16:47 04:59:59 Message r Neurosurger 07 l y [facility] 2019-02-10 2019-02-12 Phone nullFlavo MNA [id number] Memoria 16:16:47 04:59:59 Message r Neurosurger 07 l y [facility] 2019-02-10 2019-02-11 Outpatient MHMISCHER MHMISCHER [id number] 11:16:47 23:59:59 2019-01-26 2019-01-28 Phone nullFlavo MNA [id number] 55 Memoria 15:52:03 04:59:59 Message r Neurosurger 06 l y [facility] 2019-01-26 2019-01-28 Phone nullFlavo MNA [id number] 55 Memoria 15:52:03 04:59:59 Message r Neurosurger 06 l y [facility] 2019-01-26 2019-01-27 Outpatient MHMISCHER MHMISCHER [id number] 10:52:03 23:59:59 2019-01-01 2019-01-03 Phone nullFlavo MNA [id number] 55 Memoria 18:55:03 04:59:59 Message r Neurosurger 05 l y [facility] 2019-01-01 2019-01-03 Phone nullFlavo MNA [id number] Memoria 18:55:03 04:59:59 Message r Neurosurger 05 l y [facility] 2019-01-01 2019-01-02 Outpatient MHMISCHER MHMISCHER [id number] 13:55:03 23:59:59 2018-05-22 2018-05-22 Emergency [facility] [id number] Memoria 10:12:00 18:24:[address] 2018-05-22 2018-05-22 Emergency [facility]Flavo [facility] [id number] Memoria 10:12:00 18:24:[address] 2018-05-22 2018-05-22 Outpatient Neal [facility] [id number] 04:12:00 12:24:00 Zahra Ca 2018-02-18 2018-02-18 Out[facility] 14 [id number] Common 11:15:00 11:15:00 [employer] [facility] [employer] [facility] 2018-01-27 2018-01-27 Out[facility] 14 [id number] Common 11:30:00 11:30:[address] [facility] 2018-01-03 2018-01-03 Outpatient [facility] 14 [id number] Common 15:41:00 15:41:[address] [facility] 2017-12-23 2017-12-23 Outpatient Suzette [facility] 14 [id number] Common 15:42:00 15:42:[address] [facility] 2017-12-17 2017-12-17 Outpatient Suzette [facility] [id number] Common 11:00:00 11:00:[address] [facility] 2017-11-14 2017-11-19 Inpatient [facility] [id number] Memoria 22:40:00 17:28:[address] 2017-11-14 2017-11-19 Inpatient [facility] [id number] Memoria 22:40:00 17:28:[address] 2017-11-14 2017-11-19 Outpatient Ruth Quesada [facility] [id number] [id number] 17:40:00 12:28:00 Percy 23 Results Test Description Test Time Test Comments Results Result Comments Source COMP. METABOLIC PANEL (08315) 2022-11-09 21:13:07 Test Item Value Reference Range Interpretation Comme nts NA (test code = 4690916977) 131 mmol/L 135-145 L K (test code = 6140687422) 4.8 mmol/L 3.5-5.0 CL (test code = 2579882649) 100 mmol/L 98-108 CO2 TOTAL (test code = 6997961089) 22 mmol/L 23-31 L AGAP (test code = 3634382673) 9 2-16 BUN (test code = 1978711929) 14 mg/dL 7-23 GLUCOSE (test code = 3731304238) 396 mg/dL 70-110 H CREATININE (test code = 0.63 mg/dL 0.60-1.25 8970673563) TOTAL BILI (test code = 0.7 mg/dL 0.1-1.7 5576738271) CALCIUM (test code = 5264953043) 9.7 mg/dL 8.6-10.6 T PROTEIN (test code = 4948486461) 7.8 g/dL 6.3-8.2 ALBUMIN (test code = 7296654003) 4.3 g/dL 3.5-5.0 ALK PHOS (test code = 0549001030) 146 U/L 34-122 H ALTv (test code = 1742-6) 21 U/L 5-50 AST(SGOT) (test code = 9226584596) 15 U/L 13-40 eGFR (test code = 4404332026) 143.3 mL/min/1.73m2 ARPITA (test code = ARPITA) [...] tests). Lab Interpretation (test code = Abnormal 42819-2) [facility] WITH [id number] 21:09:28 Test Item Value Reference Range Interpretation Comments WBC (test code = 12.68 See_Comment H [Automated 6690-2) message] The sy [...] RDW-SD (test code = 39.9 fL 38.5-51.6 76002-8) RDW-CV (test code = 13.1 % 12.1-15.4 788-0) PLT (test code = 444 See_Comment H [Automated 777-3) message] The sy stem which generated this result transmitted reference range : 150 - 328 10*3/ ?L. The reference r boubacar was not used to interpret this result as normal/abnormal . MPV (test code = 10.0 fL 9.8-13.0 79151-1) NRBC/100 WBC (test 0.0 See_Comment [Automat ed code = 5275622493) message] The system which generated this result transmitted reference range : 0.0 - 10.0 /100 WBCs. The refer ence range was not u sed to interpret th is result as normal/abnormal . NRBC x10^3 (test code See_Comment [Auto mated = 5725902575) message] The s ystem which generated this result transmitted reference range : 10*3/?L. The reference range was not used to interpret this result as normal/abnormal . GRAN MAT (NEUT) % 76.0 % (test code = 770-8) IMM GRAN % (test code 0.30 % = 2298508259) LYMPH % (test code = 14.0 % 736-9) MONO % (test code = 7.6 % 5905-5) EOS % (test code = 1.8 % 713-8) BASO % (test code = 0.3 % 706-2) GRAN MAT x10^3(ANC) 9.63 10*3/uL 1.99-6.95 H (test code = 5926034117) IMM GRAN x10^3 (test 0.04 10*3/uL 0.00-0.06 code = 0752712534) LYMPH x10^3 (test code 1.77 10*3/uL 1.09-3.23 = 731-0) MONO x10^3 (test code 0.97 10*3/uL 0.36-1.02 = 742-7) EOS x10^3 (test code = 0.23 10*3/uL 0.06-0.53 711-2) BASO x10^3 (test code 0.04 10*3/uL 0.01-0.09 = 704-7) Lab Interpretation Abnormal (test code = 90770-4) [facility] GLUCOSE(AGE >30DAYS)2022-11-09 20:33:00 Test Item Value Reference Range Interpretation Comments POCT Glu (age>30days) (test code = 429 mg/dL 70-110 A 3342) Lab Interpretation (test code = Abnormal 84998-1) [facility] GLUCOSE (AUTOMATED)2022-10-31 22:47:23 Test Item Value Reference Range Interpretation Comments POCT GLU (test code = 0096541631) 352 mg/dL 70-110 H Lab Interpretation (test code = Abnormal 68629-9) [facility] GLUCOSE (AUTOMATED)2022-10-31 19:38:18 Test Item Value Reference Range Interpretation Comments POCT GLU (test code = 9855912077) 452 mg/dL 70-110 HH Lab Interpretation (test code = Abnormal 67312-3) [facility] GLUCOSE (AUTOMATED)2022-10-22 02:41:30 Test Item Value Reference Range Interpretation Comments POCT GLU (test code = 4920275254) 379 mg/dL 70-110 H Lab Interpretation (test code = Abnormal 53644-6) [facility]. METABOLIC PANEL (31943)2022-10-22 00:29:35 Test Item Value Reference Range Interpretation Comments NA (test code = 133 mmol/L 135-145 L 3149433422) K (test code = 3.5 mmol/L 3.5-5.0 8633474294) CL (test code = 97 mmol/L 98-108 L 8478661386) CO2 TOTAL (test code = 26 mmol/L 23-31 8194530400) AGAP (test code = 10 2-16 0175139616) BUN (test code = 7 mg/dL 7-23 3943652897) GLUCOSE (test code = 468 mg/dL 70-110 HH 8811752162) CREATININE (test code = 0.58 mg/dL 0.60-1.25 L 5776372973) TOTAL BILI (test code = 0.6 mg/dL 0.1-1.8 0675088277) CALCIUM (test code = 9.5 mg/dL 8.6-10.6 7698128385) T PROTEIN (test code = 7.6 g/dL 6.3-8.2 5919188219) ALBUMIN (test code = 4.2 g/dL 3.5-5.0 3535823881) ALK PHOS (test code = 197 U/L 34-122 H 0333518606) ALTv (test code = 56 U/L 5-50 H 1742-6) AST(SGOT) (test code = 16 U/L 13-40 7822495980) eGFR (test code = 157.7 mL/min/1.73m2 5320997808) ARPITA (test code = ARPITA) Association of [...] tests). Lab Interpretation Abnormal (test code = 07368-9) [facility] L[facility] [id number] 23:54:19 Test Item Value Reference Range Interpretation Comments PH (test code = 2) 7.37 7.35-7.45 PCO2 (test code = 47 See_Comment H [Automate d 9276813010) message] The sy stem which generated this result transmitted reference range : 35 - 45 mmHg. The reference range was not used to interpret this result as normal/abnormal . PO2 (test code = 25 See_Comment LL [Automated 5897714915) message] The sy stem which generated this result transmitted reference range : 80 - 100 mmHg. The reference range was not used to interpret this result as normal/abnormal . HCO3 (test code = 26 See_Comment [Automate d 1360567381) message] The sy stem which generated this result transmitted reference range : 22 - 26 mEq/L. The reference range was not used to interpret this result as normal/abnormal . BE (test code = 0.3 See_Comment [Automated 0819924671) message] The sy stem which generated this result transmitted reference range : -3.0 - 3.0 mEq/ L. The reference r boubacar was not used to interpret this result as normal/abnormal . THB (test code = 18.4 g/dL 13.5-18.0 H 3798866064) %O2HB (test code = 51.3 % 94.0-99.0 L 9936134410) %COHB ART (test code = 4.3 % 0.0-1.5 H 6847123547) %METHB ART (test code = 0.0 % 0.4-1.5 L 4312537035) VOL%O2 ART (test code = 13.2 % 15.0-23.0 L 6699574316) NA (test code = 136 mmol/L 135-145 1624962562) K+ (test code = 3.7 mmol/L 3.5-5.0 1042494114) AC CA IONZ (test code = 4.70 mg/dL 4.50-5.30 2718248768) GLUCOSE (test code = 471 mg/dL 70-110 HH 5832682903) LACTIC ACID (test code 2.17 mmol/L 0.50-2.20 = 5392842995) Lab Interpretation Abnormal (test code = 75856-6) [facility] WITH [id number] 23:52:19 Test Item Value Reference Range Interpretation Comments WBC (test code = 9.50 See_Comment [Automated 3326-2) message] The sy stem which generated this result transmitted reference range : 4.20 - 10.70 10*3/?L. The reference range was not used to interpret this result as normal/abnormal . RBC (test code = 5.27 See_Comment [Automated 347-8) message] The sy stem which generated this [...] RDW-SD (test code = 41.8 fL 38.5-51.6 76162-5) RDW-CV (test code = 13.2 % 12.1-15.4 788-0) PLT (test code = 369 See_Comment H [Automated 777-3) message] The sy stem which generated this result transmitted reference range : 150 - 328 10*3/ ?L. The reference r boubacar was not used to interpret this result as normal/abnormal . MPV (test code = 10.3 fL 9.8-13.0 31689-9) NRBC/100 WBC (test 0.0 See_Comment [Automat ed code = 1274499046) message] The system which generated this result transmitted reference range : 0.0 - 10.0 /100 WBCs. The refer ence range was not u sed to interpret th is result as normal/abnormal . NRBC x10^3 (test code See_Comment [Auto mated = 5884227779) message] The s ystem which generated this result transmitted reference range : 10*3/?L. The reference range was not used to interpret this result as normal/abnormal . GRAN MAT (NEUT) % 65.5 % (test code = 770-8) IMM GRAN % (test code 0.70 % = 8820280175) LYMPH % (test code = 24.9 % 736-9) MONO % (test code = 7.8 % 5905-5) EOS % (test code = 0.8 % 713-8) BASO % (test code = 0.3 % 706-2) GRAN MAT x10^3(ANC) 6.21 10*3/uL 1.99-6.95 (test code = 9735010858) IMM GRAN x10^3 (test 0.07 10*3/uL 0.00-0.06 H code = 1447337776) LYMPH x10^3 (test code 2.37 10*3/uL 1.09-3.23 = 731-0) MONO x10^3 (test code 0.74 10*3/uL 0.36-1.02 = 742-7) EOS x10^3 (test code = 0.08 10*3/uL 0.06-0.53 711-2) BASO x10^3 (test code 0.03 10*3/uL 0.01-0.09 = 704-7) Lab Interpretation Abnormal (test code = 37521-4) [facility] 00:15:39 Test Item Value Reference Range Interpretation Comments POCT GLU (test code = 8938388630) 353 mg/dL 70-110 H Lab Interpretation (test code = Abnormal 16223-2) [facility]. METABOLIC PANEL (22049)2022-10-05 22:59:53 Test Item Value Reference Range Interpretation Comments NA (test code = 137 mmol/L 135-145 4502517661) K (test code = 5.1 mmol/L 3.5-5.0 H 9475726449) CL (test code = 101 mmol/L 98-108 1097241754) CO2 TOTAL (test code = 23 mmol/L 23-31 6067618533) AGAP (test code = 13 2-16 4544784202) BUN (test code = 15 mg/dL 7-23 3208132053) GLUCOSE (test code = 455 mg/dL 70-110 HH 2187022788) CREATININE (test code = 0.51 mg/dL 0.60-1.25 L 3743716112) TOTAL BILI (test code = 0.7 mg/dL 0.1-1.4 0204331035) CALCIUM (test code = 9.8 mg/dL 8.6-10.6 2688469025) T PROTEIN (test code = 8.1 g/dL 6.3-8.2 3058688209) ALBUMIN (test code = 4.3 g/dL 3.5-5.0 2649138188) ALK PHOS (test code = 161 U/L 34-122 H 7558889427) ALTv (test code = 34 U/L 5-50 1742-6) AST(SGOT) (test code = 26 U/L 13-40 7335418574) eGFR (test code = 182.9 mL/min/1.73m2 1025520305) ARPITA (test code = ARPITA) Association of [...] tests). Lab Interpretation Abnormal (test code = 92868-5) [facility] 22:52:58 Test Item Value Reference Range Interpretation Comments MAGNESIUM (test code = 0586817096) 1.7 mg/dL 1.7-2.4 Lab Interpretation (test code = Normal 39801-4) [facility] 22:52:38 Test Item Value Reference Range Interpretation Comments LIPASE (test code = 7359336597) 106 U/L 0-220 Lab Interpretation (test code = Normal 18127-8) [facility]2022-10-05 22:37:17 Test Item Value Reference Range Interpretation Comments POCT GLU (test code = 0508497462) 425 mg/dL 70-110 H Lab Interpretation (test code = Abnormal 23238-8) [facility] Whole [id number] 22:26:01 Test Item Value Reference Range Interpretation Comments LACTIC ACID (test code = 2.67 mmol/L 0.50-2.20 H 9262914419) Lab Interpretation (test code = Abnormal 61474-1) [facility] WITH [id number] 22:24:50 Test Item Value Reference Range Interpretation [...] RDW-SD (test code = 45.1 fL 38.5-51.6 50393-9) RDW-CV (test code = 14.0 % 12.1-15.4 788-0) PLT (test code = 518 See_Comment H [Automated 777-3) message] The sy stem which generated this result transmitted reference range : 150 - 328 10*3/ ?L. The reference r boubacar was not used to interpret this result as normal/abnormal . MPV (test code = 10.2 fL 9.8-13.0 80400-8) NRBC/100 WBC (test 0.0 See_Comment [Automat ed code = 6934332905) message] The system which generated this result transmitted reference range : 0.0 - 10.0 /100 WBCs. The refer ence range was not u sed to interpret th is result as normal/abnormal . NRBC x10^3 (test code See_Comment [Auto mated = 3089509371) message] The s ystem which generated this result transmitted reference range : 10*3/?L. The reference range was not used to interpret this result as normal/abnormal . GRAN MAT (NEUT) % 76.2 % (test code = 770-8) IMM GRAN % (test code 0.50 % = 6898011521) LYMPH % (test code = 16.8 % 736-9) MONO % (test code = 5.2 % 5905-5) EOS % (test code = 1.0 % 713-8) BASO % (test code = 0.3 % 706-2) GRAN MAT x10^3(ANC) 9.18 10*3/uL 1.99-6.95 H (test code = 5339337989) IMM GRAN x10^3 (test 0.06 10*3/uL 0.00-0.06 code = 5988891844) LYMPH x10^3 (test code 2.02 10*3/uL 1.09-3.23 = 731-0) MONO x10^3 (test code 0.63 10*3/uL 0.36-1.02 = 742-7) EOS x10^3 (test code = 0.12 10*3/uL 0.06-0.53 711-2) BASO x10^3 (test code 0.04 10*3/uL 0.01-0.09 = 704-7) Lab Interpretation Abnormal (test code = 64307-2) [facility] GLUCOSE (AUTOMATED)2022-09-06 18:23:19 Test Item Value Reference Range Interpretation Comments POCT GLU (test code = 2100634643) 352 mg/dL 70-110 H Lab Interpretation (test code = Abnormal 45811-7) [facility] GLUCOSE (AUTOMATED)2022-09-06 18:23:19 Test Item Value Reference Range Interpretation Comments POCT GLU (test code = 4613526798) 352 mg/dL 70-110 H Lab Interpretation (test code = Abnormal 56394-3) [facility] GLUCOSE (AUTOMATED)2022-09-06 13:43:13 Test Item Value Reference Range Interpretation Comments POCT GLU (test code = 4527592911) 293 mg/dL 70-110 H Lab Interpretation (test code = Abnormal 15497-2) [facility] GLUCOSE (AUTOMATED)2022-09-06 13:43:13 Test Item Value Reference Range Interpretation Comments POCT GLU (test code = 7885590532) 293 mg/dL 70-110 H Lab Interpretation (test code = Abnormal 69393-3) [facility] 02:50:04 Test Item Value Reference Range Interpretation Comments POCT GLU (test code = 0113881587) 259 mg/dL 70-110 H Lab Interpretation (test code = Abnormal 88352-0) [facility] GLUCOSE (AUTOMATED)2022-09-06 02:50:04 Test Item Value Reference Range Interpretation Comments POCT GLU (test code = 4254650682) 259 mg/dL 70-110 H Lab Interpretation (test code = Abnormal 50719-1) [facility] GLUCOSE (AUTOMATED)2022-09-05 22:58:25 Test Item Value Reference Range Interpretation Comments POCT GLU (test code = 7901794875) 170 mg/dL 70-110 H Lab Interpretation (test code = Abnormal 50136-1) [facility] GLUCOSE (AUTOMATED)2022-09-05 22:58:25 Test Item Value Reference Range Interpretation Comments POCT GLU (test code = 5397746232) 170 mg/dL 70-110 H Lab Interpretation (test code = Abnormal 36175-8) [facility] GLUCOSE (AUTOMATED)2022-09-05 21:27:00 Test Item Value Reference Range Interpretation Comments POCT GLU (test code = 6831383138) 179 mg/dL 70-110 H Lab Interpretation (test code = Abnormal 60205-3) [facility] GLUCOSE (AUTOMATED)2022-09-05 21:27:00 Test Item Value Reference Range Interpretation Comments POCT GLU (test code = 9814954999) 179 mg/dL 70-110 H Lab Interpretation (test code = Abnormal 73347-8) [facility] GLUCOSE (AUTOMATED)2022-09-05 18:18:50 Test Item Value Reference Range Interpretation Comments POCT GLU (test code = 7718089676) 247 mg/dL 70-110 H Lab Interpretation (test code = Abnormal 89121-7) [facility] GLUCOSE (AUTOMATED)2022-09-05 18:18:50 Test Item Value Reference Range Interpretation Comments POCT GLU (test code = 7496117213) 247 mg/dL 70-110 H Lab Interpretation (test code = Abnormal 89325-1) [facility]22-[facility]-05 15:21:08 Test Item Value Reference Range Interpretation Comments POCT GLU (test code = 5349515587) 235 mg/dL 70-110 H Lab Interpretation (test code = Abnormal 50040-6) [facility] GLUCOSE (AUTOMATED)2022-09-05 15:21:08 Test Item Value Reference Range Interpretation Comments POCT GLU (test code = 9923542333) 235 mg/dL 70-110 H Lab Interpretation (test code = Abnormal 64401-5) [facility] GLUCOSE (AUTOMATED)2022-09-05 03:11:07 Test Item Value Reference Range Interpretation Comments POCT GLU (test code = 7584648153) 263 mg/dL 70-110 H Lab Interpretation (test code = Abnormal 97454-3) [facility] GLUCOSE (AUTOMATED)2022-09-05 03:11:07 Test Item Value Reference Range Interpretation Comments POCT GLU (test code = 1847596214) 263 mg/dL 70-110 H Lab Interpretation (test code = Abnormal 80007-6) [facility] GLUCOSE (AUTOMATED)2022-09-04 22:43:48 Test Item Value Reference Range Interpretation Comments POCT GLU (test code = 7495954497) 262 mg/dL 70-110 H Lab Interpretation (test code = Abnormal 96323-1) [facility] GLUCOSE (AUTOMATED)2022-09-04 22:43:48 Test Item Value Reference Range Interpretation Comments POCT GLU (test code = 1665956763) 262 mg/dL 70-110 H Lab Interpretation (test code = Abnormal 96736-1) [facility] GLUCOSE (AUTOMATED)2022-09-04 17:36:05 Test Item Value Reference Range Interpretation Comments POCT GLU (test code = 4888522901) 365 mg/dL 70-110 H Lab Interpretation (test code = Abnormal 20043-7) [facility]22-[facility]-04 17:36:05 Test Item Value Reference Range Interpretation Comments POCT GLU (test code = 8752240322) 365 mg/dL 70-110 H Lab Interpretation (test code = Abnormal 84533-9) [facility] GLUCOSE (AUTOMATED)2022-09-04 16:43:12 Test Item Value Reference Range Interpretation Comments POCT GLU (test code = 1242975371) 408 mg/dL 70-110 H Lab Interpretation (test code = Abnormal 81953-2) [facility] GLUCOSE (AUTOMATED)2022-09-04 16:43:12 Test Item Value Reference Range Interpretation Comments POCT GLU (test code = 6071591335) 408 mg/dL 70-110 H Lab Interpretation (test code = Abnormal 42990-0) [facility] GLUCOSE (AUTOMATED)2022-09-04 13:20:30 Test Item Value Reference Range Interpretation Comments POCT GLU (test code = 6748585270) 359 mg/dL 70-110 H Lab Interpretation (test code = Abnormal 39792-5) [facility] GLUCOSE (AUTOMATED)2022-09-04 13:20:30 Test Item Value Reference Range Interpretation Comments POCT GLU (test code = 7157140212) 359 mg/dL 70-110 H Lab Interpretation (test code = Abnormal 47729-4) [facility] GLUCOSE (AUTOMATED)2022-09-04 08:27:11 Test Item Value Reference Range Interpretation Comments POCT GLU (test code = 8763753909) 312 mg/dL 70-110 H Lab Interpretation (test code = Abnormal 91937-2) [facility] GLUCOSE (AUTOMATED)2022-09-04 08:27:11 Test Item Value Reference Range Interpretation Comments POCT GLU (test code = 5533551077) 312 mg/dL 70-110 H Lab Interpretation (test code = Abnormal 26233-4) [facility] GLUCOSE (AUTOMATED)2022-09-04 06:47:03 Test Item Value Reference Range Interpretation Comments POCT GLU (test code = 8220039591) 326 mg/dL 70-110 H Lab Interpretation (test code = Abnormal 09242-7) [facility] GLUCOSE (AUTOMATED)2022-09-04 06:47:03 Test Item Value Reference Range Interpretation Comments POCT GLU (test code = 9794235953) 326 mg/dL 70-110 H Lab Interpretation (test code = Abnormal 49429-1) [facility] METABOLIC PANEL (NA, K, CL, CO2, GLUCOSE, BUN, CREATININE, CA)2022-09-04 06:26:05 Test Item Value Reference Range Interpretation Comments NA (test code = 132 mmol/L 135-145 L 9131623417) K (test code = 4.4 mmol/L 3.5-5.0 2496203396) CL (test code = 101 mmol/L 98-108 7341304541) CO2 TOTAL (test code = 17 mmol/L 23-31 L 4710348571) AGAP (test code = 14 2-16 6271704519) BUN (test code = 11 mg/dL 7-23 8486369051) GLUCOSE (test code = 346 mg/dL 70-110 H 9466434658) CREATININE (test code = 0.54 mg/dL 0.60-1.25 L 7621753415) CALCIUM (test code = 8.5 mg/dL 8.6-10.6 L 2227256050) eGFR (test code = 171.2 mL/min/1.73m2 7738259543) ARPITA (test code = ARPITA) Association of [...] tests). Lab Interpretation Abnormal (test code = 40580-8) [facility] METABOLIC PANEL (NA, K, CL, CO2, GLUCOSE, BUN, CREATININE, CA)2022-09-04 06:26:05 Test Item Value Reference Range Interpretation Comments NA (test code = 132 mmol/L 135-145 L 0241544290) K (test code = 4.4 mmol/L 3.5-5.0 [id number]) CL (test code = 101 mmol/L 98-108 8176809344) CO2 TOTAL (test code = 17 mmol/L 23-31 L [id number]) AGAP (test code = 14 2-16 [id number]) BUN (test code = 11 mg/dL 7-23 2629967240) GLUCOSE (test code = 346 mg/dL 70-110 H [id number]) CREATININE (test code = 0.54 mg/dL 0.60-1.25 L [id number]) CALCIUM (test code = 8.5 mg/dL 8.6-10.6 L [id number]) eGFR (test code = 171.2 mL/min/1.73m2 [id number]) ARPITA (test code = ARPITA) Association of [...] tests). Lab Interpretation Abnormal (test code = 30085-4) [facility] GLUCOSE (AUTOMATED)2022-09-04 05:38:22 Test Item Value Reference Range Interpretation Comments POCT GLU (test code = 8830667766) 414 mg/dL 70-110 H Lab Interpretation (test code = Abnormal 56658-0) [facility] GLUCOSE (AUTOMATED)2022-09-04 05:38:22 Test Item Value Reference Range Interpretation Comments POCT GLU (test code = 4071429245) 414 mg/dL 70-110 H Lab Interpretation (test code = Abnormal 45883-4) [facility] METABOLIC PANEL (NA, K, CL, CO2, GLUCOSE, BUN, CREATININE, CA)2022-09-04 03:58:07 Test Item Value Reference Range Interpretation Comments NA (test code = 133 mmol/L 135-145 L 3425675977) K (test code = 4.7 mmol/L 3.5-5.0 9232255526) CL (test code = 100 mmol/L 98-108 0210896550) CO2 TOTAL (test code = 16 mmol/L 23-31 L 1450452051) AGAP (test code = 17 2-16 H 7495969124) BUN (test code = 12 mg/dL 7-23 2826152230) GLUCOSE (test code = 407 mg/dL 70-110 H 3901743245) CREATININE (test code = 0.55 mg/dL 0.60-1.25 L 3587065678) CALCIUM (test code = 9.2 mg/dL 8.6-10.6 1843696348) eGFR (test code = 167.6 mL/min/1.73m2 0064066835) ARPITA (test code = ARPITA) Association of [...] tests). Lab Interpretation Abnormal (test code = 45310-8) [facility] (NA, K, CL, CO2, GLUCOSE, BUN, CREATININE, CA)2022-09-04 03:58:07 Test Item Value Reference Range Interpretation Comments NA (test code = 133 mmol/L 135-145 L 3691675574) K (test code = 4.7 mmol/L 3.5-5.0 9286179435) CL (test code = 100 mmol/L 98-108 5754353790) CO2 TOTAL (test code = 16 mmol/L 23-31 L 0085489585) AGAP (test code = 17 2-16 H 0419602888) BUN (test code = 12 mg/dL 7-23 2742539104) GLUCOSE (test code = 407 mg/dL 70-110 H 7388379526) CREATININE (test code = 0.55 mg/dL 0.60-1.25 L 5441409177) CALCIUM (test code = 9.2 mg/dL 8.6-10.6 8418685682) eGFR (test code = 167.6 mL/min/1.73m2 4687027175) ARPITA (test code = ARPITA) Association of [...] tests). Lab Interpretation Abnormal (test code = 76224-5) [facility] WITH [id number] 03:21:04 Test Item Value Reference Range Interpretation Comments WBC (test code = 12.21 See_Comment H [Automated 8706-2) message] The sy stem which generated this result transmitted reference range : 4.20 - 10.70 10*3/?L. The reference range was not used to interpret this result as normal/abnormal . RBC (test code = 5.59 See_Comment H [Automated 809-8) message] The sy [...] RDW-SD (test code = 45.5 fL 38.5-51.6 95916-0) RDW-CV (test code = 15.1 % 12.1-15.4 788-0) PLT (test code = 344 See_Comment H [Automated 777-3) message] The sy stem which generated this result transmitted reference range : 150 - 328 10*3/ ?L. The reference r boubacar was not used to interpret this result as normal/abnormal . MPV (test code = 10.5 fL 9.8-13.0 12963-9) NRBC/100 WBC (test 0.0 See_Comment [Automat ed code = 7818825143) message] The system which generated this result transmitted reference range : 0.0 - 10.0 /100 WBCs. The refer ence range was not u sed to interpret th is result as normal/abnormal . NRBC x10^3 (test code See_Comment [Auto mated = 8123440093) message] The s ystem which generated this result transmitted reference range : 10*3/?L. The reference range was not used to interpret this result as normal/abnormal . GRAN MAT (NEUT) % 73.0 % (test code = 770-8) IMM GRAN % (test code 0.70 % = 7002150648) LYMPH % (test code = 19.6 % 736-9) MONO % (test code = 6.1 % 5905-5) EOS % (test code = 0.3 % 713-8) BASO % (test code = 0.3 % 706-2) GRAN MAT x10^3(ANC) 8.91 10*3/uL 1.99-6.95 H (test code = 0308348126) IMM GRAN x10^3 (test 0.09 10*3/uL 0.00-0.06 H code = 4641130787) LYMPH x10^3 (test code 2.39 10*3/uL 1.09-3.23 = 731-0) MONO x10^3 (test code 0.74 10*3/uL 0.36-1.02 = 742-7) EOS x10^3 (test code = 0.04 10*3/uL 0.06-0.53 L 711-2) BASO x10^3 (test code 0.04 10*3/uL 0.01-0.09 = 704-7) Lab Interpretation Abnormal (test code = 32394-0) [facility] WITH [id number] 03:21:04 Test Item Value Reference Range Interpretation Comments WBC (test code = 12.21 See_Comment H [Automated 3290-2) message] The sy stem which generated this result transmitted reference range : 4.20 - 10.70 10*3/?L. The reference range was not used to interpret this result as normal/abnormal . RBC (test code = 5.59 See_Comment H [Automated 919-8) message] The sy stem which generated this [...] RDW-SD (test code = 45.5 fL 38.5-51.6 71875-4) RDW-CV (test code = 15.1 % 12.1-15.4 788-0) PLT (test code = 344 See_Comment H [Automated 777-3) message] The sy stem which generated this result transmitted reference range : 150 - 328 10*3/ ?L. The reference r boubacar was not used to interpret this result as normal/abnormal . MPV (test code = 10.5 fL 9.8-13.0 20391-1) NRBC/100 WBC (test 0.0 See_Comment [Automat ed code = 3296889761) message] The system which generated this result transmitted reference range : 0.0 - 10.0 /100 WBCs. The refer ence range was not u sed to interpret th is result as normal/abnormal . NRBC x10^3 (test code See_Comment [Auto mated = 6954088497) message] The s ystem which generated this result transmitted reference range : 10*3/?L. The reference range was not used to interpret this result as normal/abnormal . GRAN MAT (NEUT) % 73.0 % (test code = 770-8) IMM GRAN % (test code 0.70 % = 0906404536) LYMPH % (test code = 19.6 % 736-9) MONO % (test code = 6.1 % 5905-5) EOS % (test code = 0.3 % 713-8) BASO % (test code = 0.3 % 706-2) GRAN MAT x10^3(ANC) 8.91 10*3/uL 1.99-6.95 H (test code = 9497242048) IMM GRAN x10^3 (test 0.09 10*3/uL 0.00-0.06 H code = 0229261418) LYMPH x10^3 (test code 2.39 10*3/uL 1.09-3.23 = 731-0) MONO x10^3 (test code 0.74 10*3/uL 0.36-1.02 = 742-7) EOS x10^3 (test code = 0.04 10*3/uL 0.06-0.53 L 711-2) BASO x10^3 (test code 0.04 10*3/uL 0.01-0.09 = 704-7) Lab Interpretation Abnormal (test code = 54684-8) [facility] GLUCOSE (AUTOMATED)2022-08-25 02:39:28 Test Item Value Reference Range Interpretation Comments POCT GLU (test code = 5863351683) 438 mg/dL 70-110 H Lab Interpretation (test code = Abnormal 39519-1) [facility]24698[facility]-25 01:00:03 Test Item Value Reference Range Interpretation Comments NA (test code = 136 mmol/L 135-145 8202201504) K (test code = 3.8 mmol/L 3.5-5.0 0308119870) CL (test code = 104 mmol/L 98-108 9835010461) CO2 TOTAL (test code = 23 mmol/L 23-31 0392942247) AGAP (test code = 9 2-16 1859406187) BUN (test code = 6 mg/dL 7-23 L 9468280126) GLUCOSE (test code = 645 mg/dL 70-110 HH 0719595967) CREATININE (test code = 0.68 mg/dL 0.60-1.25 1958317692) TOTAL BILI (test code = 1.0 mg/dL 0.1-1.6 3643510925) CALCIUM (test code = 8.5 mg/dL 8.6-10.6 L 2917264143) T PROTEIN (test code = 6.8 g/dL 6.3-8.2 0891457706) ALBUMIN (test code = 3.5 g/dL 3.5-5.0 5023204056) ALK PHOS (test code = 201 U/L 34-122 H 0489750138) ALTv (test code = 60 U/L 5-50 H 1742-6) AST(SGOT) (test code = 23 U/L 13-40 9377242468) eGFR (test code = 131.2 mL/min/1.73m2 8392687500) ARPITA (test code = ARPITA) Association of [...] tests). Lab Interpretation Abnormal (test code = 81266-4) [facility] Test Item Value Reference Range Interpretation Comments LIPASE (test code = 2260423170) 141 U/L 0-220 Lab Interpretation (test code = Normal 36970-5) [facility] WITH [id number] 00:01:30 Test Item Value Reference Range Interpretation Comments WBC (test code = 8.06 See_Comment [Automated 3071-2) message] The sy stem which generated this result transmitted reference range : 4.20 - 10.70 10*3/?L. The reference range was not used to interpret this result as normal/abnormal . RBC (test code = 5.04 See_Comment [Automated 211-8) message] The sy stem which generated this [...] RDW-SD (test code = 46.7 fL 38.5-51.6 82756-4) RDW-CV (test code = 15.5 % 12.1-15.4 H 788-0) PLT (test code = 386 See_Comment H [Automated 777-3) message] The sy stem which generated this result transmitted reference range : 150 - 328 10*3/ ?L. The reference r boubacar was not used to interpret this result as normal/abnormal . MPV (test code = 10.7 fL 9.8-13.0 84486-3) NRBC/100 WBC (test 0.0 See_Comment [Automat ed code = 6681763173) message] The system which generated this result transmitted reference range : 0.0 - 10.0 /100 WBCs. The refer ence range was not u sed to interpret th is result as normal/abnormal . NRBC x10^3 (test code See_Comment [Auto mated = 5433274438) message] The s ystem which generated this result transmitted reference range : 10*3/?L. The reference range was not used to interpret this result as normal/abnormal . GRAN MAT (NEUT) % 72.5 % (test code = 770-8) IMM GRAN % (test code 0.40 % = 9011888512) LYMPH % (test code = 15.0 % 736-9) MONO % (test code = 9.1 % 5905-5) EOS % (test code = 2.5 % 713-8) BASO % (test code = 0.5 % 706-2) GRAN MAT x10^3(ANC) 5.85 10*3/uL 1.99-6.95 (test code = 3994066033) IMM GRAN x10^3 (test 0.03 10*3/uL 0.00-0.06 code = 5778659671) LYMPH x10^3 (test code 1.21 10*3/uL 1.09-3.23 = 731-0) MONO x10^3 (test code 0.73 10*3/uL 0.36-1.02 = 742-7) EOS x10^3 (test code = 0.20 10*3/uL 0.06-0.53 711-2) BASO x10^3 (test code 0.04 10*3/uL 0.01-0.09 = 704-7) Lab Interpretation Abnormal (test code = 51440-5) [facility] 23:09:42 Test Item Value Reference Range Interpretation Comments POCT GLU (test code = 4176762833) 367 mg/dL 70-110 H Lab Interpretation (test code = Abnormal 90882-3) [facility]. METABOLIC PANEL (57932)2022-08-23 22:58:25 Test Item Value Reference Range Interpretation Comments NA (test code = 143 mmol/L 135-145 4863124553) K (test code = 4.2 mmol/L 3.5-5.0 4422564552) CL (test code = 106 mmol/L 98-108 2440518095) CO2 TOTAL (test code = 18 mmol/L 23-31 L 0561723787) AGAP (test code = 19 2-16 H 1992925126) BUN (test code = 7 mg/dL 7-23 8419282849) GLUCOSE (test code = 542 mg/dL 70-110 HH 7276387453) CREATININE (test code = 0.67 mg/dL 0.60-1.25 8006340110) TOTAL BILI (test code = 1.5 mg/dL 0.1-1.1 H 4142571725) CALCIUM (test code = 9.5 mg/dL 8.6-10.6 8443873213) T PROTEIN (test code = 7.9 g/dL 6.3-8.2 3708139045) ALBUMIN (test code = 4.2 g/dL 3.5-5.0 5283971005) ALK PHOS (test code = 233 U/L 34-122 H 2452843036) ALTv (test code = 86 U/L 5-50 H 1742-6) AST(SGOT) (test code = 25 U/L 13-40 6697208969) eGFR (test code = 133.5 mL/min/1.73m2 5264568048) ARPITA (test code = ARPITA) Association of [...] tests). Lab Interpretation Abnormal (test code = 01885-4) [facility]55[facility]17 Test Item Value Reference Range Interpretation Comments MAGNESIUM (test code = 6827576737) 1.7 mg/dL 1.7-2.4 Lab Interpretation (test code = Normal 20620-1) [facility] WITH [id number] 22:28:16 Test Item Value Reference Range Interpretation Comments WBC (test code = 8.36 See_Comment [Automated 1109-2) message] The sy stem which generated this result transmitted reference range : 4.20 - 10.70 10*3/?L. The reference range was not used to interpret this result as normal/abnormal . RBC (test code = 5.74 See_Comment H [Automated 550-8) message] The sy stem which generated this [...] RDW-SD (test code = 45.1 fL 38.5-51.6 16519-3) RDW-CV (test code = 15.8 % 12.1-15.4 H 788-0) PLT (test code = 475 See_Comment H [Automated 777-3) message] The sy stem which generated this result transmitted reference range : 150 - 328 10*3/ ?L. The reference r boubacar was not used to interpret this result as normal/abnormal . MPV (test code = 10.7 fL 9.8-13.0 91880-5) NRBC/100 WBC (test 0.0 See_Comment [Automat ed code = 4271303975) message] The system which generated this result transmitted reference range : 0.0 - 10.0 /100 WBCs. The refer ence range was not u sed to interpret th is result as normal/abnormal . NRBC x10^3 (test code See_Comment [Auto mated = 8300038839) message] The s ystem which generated this result transmitted reference range : 10*3/?L. The reference range was not used to interpret this result as normal/abnormal . GRAN MAT (NEUT) % 70.8 % (test code = 770-8) IMM GRAN % (test code 1.00 % = 8524559326) LYMPH % (test code = 18.3 % 736-9) MONO % (test code = 7.7 % 5905-5) EOS % (test code = 1.8 % 713-8) BASO % (test code = 0.4 % 706-2) GRAN MAT x10^3(ANC) 5.93 10*3/uL 1.99-6.95 (test code = 9732688266) IMM GRAN x10^3 (test 0.08 10*3/uL 0.00-0.06 H code = 8788150556) LYMPH x10^3 (test code 1.53 10*3/uL 1.09-3.23 = 731-0) MONO x10^3 (test code 0.64 10*3/uL 0.36-1.02 = 742-7) EOS x10^3 (test code = 0.15 10*3/uL 0.06-0.53 711-2) BASO x10^3 (test code 0.03 10*3/uL 0.01-0.09 = 704-7) Lab Interpretation Abnormal (test code = 24193-3) [facility] GLUCOSE (AUTOMATED)2022-08-23 22:22:13 Test Item Value Reference Range Interpretation Comments POCT GLU (test code = 9067404972) 515 mg/dL 70-110 HH Lab Interpretation (test code = Abnormal 02878-4) [facility] GLUCOSE (AUTOMATED)2022-08-23 21:18:09 Test Item Value Reference Range Interpretation Comments POCT GLU (test code = 3038549484) 557 mg/dL 70-110 HH Lab Interpretation (test code = Abnormal 56844-9) [facility] GLUCOSE (AUTOMATED)2022-08-16 23:58:14 Test Item Value Reference Range Interpretation Comments POCT GLU (test code = 1815600711) 235 mg/dL 70-110 H Lab Interpretation (test code = Abnormal 78804-2) [facility] GLUCOSE (AUTOMATED)2022-08-16 17:36:06 Test Item Value Reference Range Interpretation Comments POCT GLU (test code = 2803320015) 276 mg/dL 70-110 H Lab Interpretation (test code = Abnormal 21778-2) [facility] GLUCOSE (AUTOMATED)2022-08-16 14:01:35 Test Item Value Reference Range Interpretation Comments POCT GLU (test code = 4232507073) 306 mg/dL 70-110 H Lab Interpretation (test code = Abnormal 34844-5) [facility] GLUCOSE (AUTOMATED)2022-08-16 14:01:35 Test Item Value Reference Range Interpretation Comments POCT GLU (test code = 1824230245) 321 mg/dL 70-110 H Lab Interpretation (test code = Abnormal 69590-2) [facility] GLUCOSE (AUTOMATED)2022-08-16 02:22:30 Test Item Value Reference Range Interpretation Comments POCT GLU (test code = 6001110064) 323 mg/dL 70-110 H Lab Interpretation (test code = Abnormal 17024-0) [facility] GLUCOSE (AUTOMATED)2022-08-16 01:14:46 Test Item Value Reference Range Interpretation Comments POCT GLU (test code = 1714537313) 311 mg/dL 70-110 H Lab Interpretation (test code = Abnormal 79665-2) [facility] GLUCOSE (AUTOMATED)2022-08-15 23:47:24 Test Item Value Reference Range Interpretation Comments POCT GLU (test code = 6278980258) 354 mg/dL 70-110 H Lab Interpretation (test code = Abnormal 94150-8) [facility] GLUCOSE (AUTOMATED)2022-08-15 22:23:59 Test Item Value Reference Range Interpretation Comments POCT GLU (test code = 8608916063) 398 mg/dL 70-110 H Lab Interpretation (test code = Abnormal 46837-2) [facility] HEMOGLOBIN A1C [id number] 19:04:00 Test Item Value Reference Range Interpretation Comments POCT HBA1C (test code = 4548-4) 6.8 % 4-6 A Lab Interpretation (test code = Abnormal 63586-3) [facility] HEMOGLOBIN A1C [id number] 19:04:00 Test Item Value Reference Range Interpretation Comments POCT HBA1C (test code = 4548-4) 6.8 % 4-6 A Lab Interpretation (test code = Abnormal 28735-3) [facility] HEMOGLOBIN A1C [id number] 19:04:00 Test Item Value Reference Range Interpretation Comments POCT HBA1C (test code = 4548-4) 6.8 % 4-6 A Lab Interpretation (test code = Abnormal 20878-9) [facility] GLUCOSE (AUTOMATED)2022-05-21 23:04:10 Test Item Value Reference Range Interpretation Comments POCT GLU (test code = 7074878838) 142 mg/dL 70-110 H Lab Interpretation (test code = Abnormal 11153-7) [facility] GLUCOSE (AUTOMATED)2022-05-21 18:07:54 Test Item Value Reference Range Interpretation Comments POCT GLU (test code = 9929683459) 198 mg/dL 70-110 H Lab Interpretation (test code = Abnormal 57361-2) [facility] GLUCOSE (AUTOMATED)2022-05-21 13:54:10 Test Item Value Reference Range Interpretation Comments POCT GLU (test code = 4199275850) 141 mg/dL 70-110 H Lab Interpretation (test code = Abnormal 49191-5) [facility] GLUCOSE (AUTOMATED)2022-05-21 02:47:37 Test Item Value Reference Range Interpretation Comments POCT GLU (test code = 4842681070) 150 mg/dL 70-110 H Lab Interpretation (test code = Abnormal 58573-4) [facility]. METABOLIC PANEL (91293)2022-05-20 23:49:17 Test Item Value Reference Range Interpretation Comments NA (test code = 139 mmol/L 135-145 6531716127) K (test code = 4.5 mmol/L 3.5-5.0 2423190525) CL (test code = 104 mmol/L 98-108 1410602201) CO2 TOTAL (test code = 25 mmol/L 23-31 0306897460) AGAP (test code = 2-16 2152870811) BUN (test code = 13 mg/dL 7-23 8556817778) GLUCOSE (test code = 228 mg/dL 70-110 H 2845561906) CREATININE (test code = 0.56 mg/dL 0.60-1.25 L 0729621047) TOTAL BILI (test code = 0.6 mg/dL 0.1-1.3 4100279804) CALCIUM (test code = 9.7 mg/dL 8.6-10.6 4127833858) T PROTEIN (test code = 7.8 g/dL 6.3-8.2 6273074714) ALBUMIN (test code = 4.4 g/dL 3.5-5.0 9777500985) ALK PHOS (test code = 132 U/L 34-122 H 3934761444) ALTv (test code = 31 U/L 5-50 1742-6) AST(SGOT) (test code = 20 U/L 13-40 7380052011) eGFR (test code = mL/min/1.73m2 2804264943) ARPITA (test code = ARPITA) Association of [...] tests). Lab Interpretation Abnormal (test code = 32075-2) [facility] WITH [id number] 23:45:35 Test Item Value Reference Range Interpretation Comments WBC (test code = See_Comment [Automated 4601-2) message] The sy stem which generated this result transmitted reference range : 4.20 - 10.70 10*3/?L. The reference range was not used to interpret this result as normal/abnormal . RBC (test code = See_Comment H [Automated 352-0) message] The sy stem which generated this [...] RDW-SD (test code = 45.1 fL 38.5-51.6 66482-4) RDW-CV (test code = 14.9 % 12.1-15.4 788-0) PLT (test code = See_Comment [Automated 777-3) message] The sy stem which generated this result transmitted reference range : 150 - 328 10*3/ ?L. The reference r boubacar was not used to interpret this result as normal/abnormal . MPV (test code = 10.9 fL 9.8-13.0 09462-4) IPF % (test code = 9.9 % 1.2-10.7 Platelet count 4470320475) measured by fluorescence method. NRBC/100 WBC (test See_Comment [Automat ed code = 8407680308) message] The system which generated this result transmitted reference range : 0.0 - 10.0 /100 WBCs. The refer ence range was not u sed to interpret th is result as normal/abnormal . NRBC x10^3 (test code See_Comment [Auto mated = 7403336972) message] The s ystem which generated this result transmitted reference range : 10*3/?L. The reference range was not used to interpret this result as normal/abnormal . GRAN MAT (NEUT) % 65.4 % (test code = 770-8) IMM GRAN % (test code 0.60 % = 7690411452) LYMPH % (test code = 23.1 % 736-9) MONO % (test code = 7.9 % 5905-5) EOS % (test code = 2.6 % 713-8) BASO % (test code = 0.4 % 706-2) GRAN MAT x10^3(ANC) 6.34 10*3/uL 1.99-6.95 (test code = 5184252441) IMM GRAN x10^3 (test 0.06 10*3/uL 0.00-0.06 code = 1655186384) LYMPH x10^3 (test code 2.24 10*3/uL 1.09-3.23 = 731-0) MONO x10^3 (test code 0.77 10*3/uL 0.36-1.02 = 742-7) EOS x10^3 (test code = 0.25 10*3/uL 0.06-0.53 711-2) BASO x10^3 (test code 0.04 10*3/uL 0.01-0.09 = 704-7) Lab Interpretation Abnormal (test code = 76012-2) [facility] [id number] 23:16:59 Test Item Value Reference Range Interpretation Comments LACTIC ACID (test code = 3.00 mmol/L 0.50-2.20 H 6756027167) Lab Interpretation (test code = Abnormal 02250-7) [facility] WITH [id number] 01:28:46 Test Item Value Reference Range Interpretation Comments WBC (test code = See_Comment [Automated 6690-2) message] The sy stem which generated this result transmitted reference range : 4.20 - 10.70 10*3/?L. The reference range was not used to interpret this result as normal/abnormal . RBC (test code = See_Comment H [Automated 559-8) message] The sy stem which generated this [...] RDW-SD (test code = 47.6 fL 38.5-51.6 16894-6) RDW-CV (test code = 15.4 % 12.1-15.4 788-0) PLT (test code = See_Comment L [Automated 777-3) message] The sy stem which generated this result transmitted reference range : 150 - 328 10*3/ ?L. The reference r boubacar was not used to interpret this result as normal/abnormal . MPV (test code = 10.6 fL 9.8-13.0 25328-8) NRBC/100 WBC (test See_Comment [Automat ed code = 5910764823) message] The system which generated this result transmitted reference range : 0.0 - 10.0 /100 WBCs. The refer ence range was not u sed to interpret th is result as normal/abnormal . NRBC x10^3 (test code See_Comment [Auto mated = 2258732491) message] The s ystem which generated this result transmitted reference range : 10*3/?L. The reference range was not used to interpret this result as normal/abnormal . GRAN MAT (NEUT) % 70.8 % (test code = 770-8) IMM GRAN % (test code 0.50 % = 6335383908) LYMPH % (test code = 20.4 % 736-9) MONO % (test code = 5.9 % 5905-5) EOS % (test code = 2.0 % 713-8) BASO % (test code = 0.4 % 706-2) GRAN MAT x10^3(ANC) 7.23 10*3/uL 1.99-6.95 H (test code = 7908855377) IMM GRAN x10^3 (test 0.05 10*3/uL 0.00-0.06 code = 4779008121) LYMPH x10^3 (test code 2.08 10*3/uL 1.09-3.23 = 731-0) MONO x10^3 (test code 0.60 10*3/uL 0.36-1.02 = 742-7) EOS x10^3 (test code = 0.20 10*3/uL 0.06-0.53 711-2) BASO x10^3 (test code 0.04 10*3/uL 0.01-0.09 = 704-7) Lab Interpretation Abnormal (test code = 01330-2) [facility]. METABOLIC PANEL (23444)2022-05-13 01:23:44 Test Item Value Reference Range Interpretation Comments NA (test code = 141 mmol/L 135-145 2278356930) K (test code = 4.7 mmol/L 3.5-5.0 0706797208) CL (test code = 107 mmol/L 98-108 9199191603) CO2 TOTAL (test code = 23 mmol/L 23-31 0919229265) AGAP (test code = 2-16 4127894003) BUN (test code = 16 mg/dL 7-23 5383816052) GLUCOSE (test code = 144 mg/dL 70-110 H 0197954245) CREATININE (test code = 0.54 mg/dL 0.60-1.25 L 0490036923) TOTAL BILI (test code = 0.6 mg/dL 0.1-1.4 7046777758) CALCIUM (test code = 9.5 mg/dL 8.6-10.6 3211144735) T PROTEIN (test code = 7.7 g/dL 6.3-8.2 3625245491) ALBUMIN (test code = 4.4 g/dL 3.5-5.0 5336808380) ALK PHOS (test code = 101 U/L 34-122 9863615927) ALTv (test code = 28 U/L 5-50 1742-6) AST(SGOT) (test code = 20 U/L 13-40 4249272602) eGFR (test code = mL/min/1.73m2 2868193120) ARPITA (test code = ARPITA) Association of [...] tests). Lab Interpretation Abnormal (test code = 64973-0) [facility] Test Item Value Reference Range Interpretation Comments LIPASE (test code = 9287899141) 99 U/L 0-220 Lab Interpretation (test code = Normal 30509-5) [facility] GLUCOSE (AUTOMATED)2022-05-06 13:16:26 Test Item Value Reference Range Interpretation Comments POCT GLU (test code = 6738481274) 162 mg/dL 70-110 H Lab Interpretation (test code = Abnormal 31386-6) [facility] GLUCOSE (AUTOMATED)2022-05-06 01:23:12 Test Item Value Reference Range Interpretation Comments POCT GLU (test code = 3493252577) 248 mg/dL 70-110 H Lab Interpretation (test code = Abnormal 35590-4) [facility] GLUCOSE (AUTOMATED)2022-05-05 21:32:18 Test Item Value Reference Range Interpretation Comments POCT GLU (test code = 4682977095) 239 mg/dL 70-110 H Lab Interpretation (test code = Abnormal 59904-4) [facility] GLUCOSE (AUTOMATED)2022-05-05 01:49:48 Test Item Value Reference Range Interpretation Comments POCT GLU (test code = 0301996357) 317 mg/dL 70-110 H Lab Interpretation (test code = Abnormal 02313-8) [facility] GLUCOSE (AUTOMATED)2022-05-04 21:38:03 Test Item Value Reference Range Interpretation Comments POCT GLU (test code = 0854272258) 139 mg/dL 70-110 H Lab Interpretation (test code = Abnormal 67170-4) [facility] GLUCOSE (AUTOMATED)2022-05-04 16:14:31 Test Item Value Reference Range Interpretation Comments POCT GLU (test code = 6720219014) 164 mg/dL 70-110 H Lab Interpretation (test code = Abnormal 23635-8) [facility] GLUCOSE (AUTOMATED)2022-05-04 12:46:40 Test Item Value Reference Range Interpretation Comments POCT GLU (test code = 6158776568) 154 mg/dL 70-110 H Lab Interpretation (test code = Abnormal 25572-8) [facility] Test Item Value Reference Range Interpretation Comments LIPASE (test code = 7800787741) 216 U/L 0-220 Lab Interpretation (test code = Normal 50099-9) [facility]. METABOLIC PANEL (90085)2022-05-04 06:39:52 Test Item Value Reference Range Interpretation Comments NA (test code = 139 mmol/L 135-145 6981315383) K (test code = 4.7 mmol/L 3.5-5 8149766201) CL (test code = 106 mmol/L 98-108 6425588190) CO2 TOTAL (test code = 20 mmol/L 23-31 L 7009853761) AGAP (test code = 2-16 1318565488) BUN (test code = 16 mg/dL 7-23 5057981997) GLUCOSE (test code = 224 mg/dL 70-110 H 9313258013) CREATININE (test code = 0.72 mg/dL 0.6-1.25 9495410687) TOTAL BILI (test code = 0.4 mg/dL 0.1-1.0 0196349997) CALCIUM (test code = 9.3 mg/dL 8.6-10.6 9602225569) T PROTEIN (test code = 7.2 g/dL 6.3-8.2 4428846081) ALBUMIN (test code = 4.1 g/dL 3.5-5 9156887650) ALK PHOS (test code = 118 U/L 34-122 0797262599) ALTv (test code = 46 U/L 5-50 1742-6) AST(SGOT) (test code = 18 U/L 13-40 8039664407) eGFR (test code = mL/min/1.73m2 0964253280) ARPITA (test code = ARPITA) Association of [...] tests). Lab Interpretation Abnormal (test code = 19413-2) [facility] WITH [id number] 06:28:46 Test Item Value Reference Range Interpretation Comments WBC (test code = See_Comment [Automated 3653-2) message] The sy stem which generated this result transmitted reference range : 4.20 - 10.70 10*3/?L. The reference range was not used to interpret this result as normal/abnormal . RBC (test code = See_Comment [Automated 661-8) message] The sy stem which generated this [...] RDW-SD (test code = 45.7 fL 38.5-51.6 66638-8) RDW-CV (test code = 14.8 % 12.1-15.4 788-0) PLT (test code = See_Comment H [Automated 777-3) message] The sy stem which generated this result transmitted reference range : 150 - 328 10*3/ ?L. The reference r boubacar was not used to interpret this result as normal/abnormal . MPV (test code = 11.0 fL 9.8-13 49148-8) NRBC/100 WBC (test See_Comment [Automat ed code = 3477683281) message] The system which generated this result transmitted reference range : 0.0 - 10.0 /100 WBCs. The refer ence range was not u sed to interpret th is result as normal/abnormal . NRBC x10^3 (test code See_Comment [Auto mated = 8711479986) message] The s ystem which generated this result transmitted reference range : 10*3/?L. The reference range was not used to interpret this result as normal/abnormal . GRAN MAT (NEUT) % 56.7 % (test code = 770-8) IMM GRAN % (test code 0.70 % = 5124099170) LYMPH % (test code = 31.5 % 736-9) MONO % (test code = 8.6 % 5905-5) EOS % (test code = 2.0 % 713-8) BASO % (test code = 0.5 % 706-2) GRAN MAT x10^3(ANC) 4.84 10*3/uL 1.99-6.95 (test code = 6635809179) IMM GRAN x10^3 (test 0.06 10*3/uL 0-0.06 code = 5450269455) LYMPH x10^3 (test code 2.69 10*3/uL 1.09-3.23 = 731-0) MONO x10^3 (test code 0.73 10*3/uL 0.36-1.02 = 742-7) EOS x10^3 (test code = 0.17 10*3/uL 0.06-0.53 711-2) BASO x10^3 (test code 0.04 10*3/uL 0.01-0.09 = 704-7) Lab Interpretation Abnormal (test code = 50815-2) [facility] CULTURE(AEROBIC/ANAEROBIC)2022-02-23 20:34:19 Test Item Value Reference Range Interpretation Comments TISSUE CULTURE (test No aerobic/anaerobic code = 28897-5) organisms isolated Gram stain (test code No PMNs or Mononuclear = 664-3) cells observed [facility] GLUCOSE (AUTOMATED)2022-02-23 18:36:41 Test Item Value Reference Range Interpretation Comments POCT GLU (test code = 8397527294) 162 mg/dL 70-110 H Lab Interpretation (test code = Abnormal 40332-9) [facility] GLUCOSE (AUTOMATED)2022-02-23 14:48:29 Test Item Value Reference Range Interpretation Comments POCT GLU (test code = 0775435673) 191 mg/dL 70-110 H Lab Interpretation (test code = Abnormal 27041-5) [facility] GLUCOSE (AUTOMATED)2022-02-23 10:56:47 Test Item Value Reference Range Interpretation Comments POCT GLU (test code = 0433986666) 242 mg/dL 70-110 H Lab Interpretation (test code = Abnormal 68839-3) [facility] GLUCOSE (AUTOMATED)2022-02-23 05:47:30 Test Item Value Reference Range Interpretation Comments POCT GLU (test code = 2905967734) 327 mg/dL 70-110 H Lab Interpretation (test code = Abnormal 79269-6) [facility] GLUCOSE (AUTOMATED)2022-02-23 02:18:34 Test Item Value Reference Range Interpretation Comments POCT GLU (test code = 2419401664) 309 mg/dL 70-110 H Lab Interpretation (test code = Abnormal 01324-6) [facility] GLUCOSE (AUTOMATED)2022-02-22 23:17:38 Test Item Value Reference Range Interpretation Comments POCT GLU (test code = 8817839582) 260 mg/dL 70-110 H Lab Interpretation (test code = Abnormal 66405-8) [facility] GLUCOSE (AUTOMATED)2022-02-22 18:33:41 Test Item Value Reference Range Interpretation Comments POCT GLU (test code = 3764239432) 264 mg/dL 70-110 H Lab Interpretation (test code = Abnormal 90378-4) [facility] GLUCOSE (AUTOMATED)2022-02-22 15:02:50 Test Item Value Reference Range Interpretation Comments POCT GLU (test code = 9705313621) 219 mg/dL 70-110 H Lab Interpretation (test code = Abnormal 26754-3) [facility] (NA, K, CL, CO2, GLUCOSE, BUN, CREATININE, CA)2022-02-22 10:44:27 Test Item Value Reference Range Interpretation Comments NA (test code = 132 mmol/L 135-145 L 8039622635) K (test code = 4.4 mmol/L 3.5-5 3477935861) CL (test code = 103 mmol/L 98-108 2288984601) CO2 TOTAL (test code = 25 mmol/L 23-31 2693533082) AGAP (test code = 2-16 8740711317) BUN (test code = 15 mg/dL 7-23 4440569531) GLUCOSE (test code = 262 mg/dL 70-110 H 2915424619) CREATININE (test code = 0.52 mg/dL 0.6-1.25 L 3511027355) CALCIUM (test code = 8.3 mg/dL 8.6-10.6 L 6888310261) eGFR (test code = mL/min/1.73m2 9515651179) ARPITA (test code = ARPITA) Association of [...] tests). Lab Interpretation Abnormal (test code = 75143-9) [facility] WITH [id number] 10:22:05 Test Item Value Reference Range Interpretation Comments WBC (test code = See_Comment [Automated 7590-2) message] The sy stem which generated this result transmitted reference range : 4.20 - 10.70 10*3/?L. The reference range was not used to interpret this result as normal/abnormal . RBC (test code = See_Comment L [Automated 779-8) message] The sy stem which generated this [...] RDW-SD (test code = 49.8 fL 38.5-51.6 15143-0) RDW-CV (test code = 15.9 % 12.1-15.4 H 788-0) PLT (test code = See_Comment H [Automated 777-3) message] The sy stem which generated this result transmitted reference range : 150 - 328 10*3/ ?L. The reference r boubacar was not used to interpret this result as normal/abnormal . MPV (test code = 10.4 fL 9.8-13 50023-9) NRBC/100 WBC (test See_Comment [Automat ed code = 5750780791) message] The system which generated this result transmitted reference range : 0.0 - 10.0 /100 WBCs. The refer ence range was not u sed to interpret th is result as normal/abnormal . NRBC x10^3 (test code See_Comment [Auto mated = 5173835700) message] The s ystem which generated this result transmitted reference range : 10*3/?L. The reference range was not used to interpret this result as normal/abnormal . GRAN MAT (NEUT) % 59.8 % (test code = 770-8) IMM GRAN % (test code 1.20 % = 9839983076) LYMPH % (test code = 28.2 % 736-9) MONO % (test code = 8.4 % 5905-5) EOS % (test code = 2.2 % 713-8) BASO % (test code = 0.2 % 706-2) GRAN MAT x10^3(ANC) 5.34 10*3/uL 1.99-6.95 (test code = 6590483271) IMM GRAN x10^3 (test 0.11 10*3/uL 0-0.06 H code = 6010474538) LYMPH x10^3 (test code 2.52 10*3/uL 1.09-3.23 = 731-0) MONO x10^3 (test code 0.75 10*3/uL 0.36-1.02 = 742-7) EOS x10^3 (test code = 0.20 10*3/uL 0.06-0.53 711-2) BASO x10^3 (test code 0.01-0.09 = 704-7) Lab Interpretation Abnormal (test code = 44038-9) [facility] GLUCOSE (AUTOMATED)2022-02-22 02:20:10 Test Item Value Reference Range Interpretation Comments POCT GLU (test code = 0992059349) 281 mg/dL 70-110 H Lab Interpretation (test code = Abnormal 65329-8) [facility] GLUCOSE (AUTOMATED)2022-02-21 22:27:37 Test Item Value Reference Range Interpretation Comments POCT GLU (test code = 5488883718) 187 mg/dL 70-110 H Lab Interpretation (test code = Abnormal 39597-1) [facility] GLUCOSE (AUTOMATED)2022-02-21 19:00:16 Test Item Value Reference Range Interpretation Comments POCT GLU (test code = 3634839491) 167 mg/dL 70-110 H Lab Interpretation (test code = Abnormal 31664-2) [facility] GLUCOSE (AUTOMATED)2022-02-21 19:00:16 Test Item Value Reference Range Interpretation Comments POCT GLU (test code = 9228155872) 167 mg/dL 70-110 H Lab Interpretation (test code = Abnormal 31225-5) [facility] GLUCOSE (AUTOMATED)2022-02-21 15:22:04 Test Item Value Reference Range Interpretation Comments POCT GLU (test code = 3746808626) 138 mg/dL 70-110 H Lab Interpretation (test code = Abnormal 36668-1) [facility] GLUCOSE (AUTOMATED)2022-02-21 15:22:04 Test Item Value Reference Range Interpretation Comments POCT GLU (test code = 3497557021) 138 mg/dL 70-110 H Lab Interpretation (test code = Abnormal 76463-8) [facility] GLUCOSE (AUTOMATED)2022-02-21 02:45:31 Test Item Value Reference Range Interpretation Comments POCT GLU (test code = 0809586820) 142 mg/dL 70-110 H Lab Interpretation (test code = Abnormal 33915-8) [facility] GLUCOSE (AUTOMATED)2022-02-21 02:45:31 Test Item Value Reference Range Interpretation Comments POCT GLU (test code = 1669525879) 142 mg/dL 70-110 H Lab Interpretation (test code = Abnormal 36473-1) [facility] GLUCOSE (AUTOMATED)2022-02-20 22:04:41 Test Item Value Reference Range Interpretation Comments POCT GLU (test code = 0734136944) 260 mg/dL 70-110 H Lab Interpretation (test code = Abnormal 77954-1) [facility] GLUCOSE (AUTOMATED)2022-02-20 22:04:41 Test Item Value Reference Range Interpretation Comments POCT GLU (test code = 4768546623) 260 mg/dL 70-110 H Lab Interpretation (test code = Abnormal 36550-2) [facility] Culture - Peripheral Vein # 21:01:35 Test Item Value Reference Range Interpretation Comments Blood Culture-Aerobic No organisms No growth Previo us (test code = 38088-4) isolated prelim inary verified result was Culture [...] Culture-Anaerobic isolated preliminar y (test code = 66208-2) verifi ed result was Culture In Progress [...] CDT Lab Interpretation Normal (test code = 53918-5) [facility] Culture - Peripheral [id number] 21:01:35 Test Item Value Reference Range Interpretation Comments Blood Culture-Aerobic No organisms No growth Previo us (test code = 96056-0) isolated prelim inary verified result was Culture [...] Culture-Anaerobic isolated preliminar y (test code = 70049-4) verifi ed result was Culture In Progress [...] CDT Lab Interpretation Normal (test code = 45886-4) [facility] Culture - Peripheral Vein # 21:01:35 Test Item Value Reference Range Interpretation Comments Blood Culture-Aerobic No organisms No growth Previo us (test code = 40316-2) isolated prelim inary verified result was Culture [...] Culture-Anaerobic isolated preliminar y (test code = 78557-7) verifi ed result was Culture In Progress [...] CDT Lab Interpretation Normal (test code = 86241-3) [facility] Culture - Peripheral [id number] 21:01:35 Test Item Value Reference Range Interpretation Comments Blood Culture-Aerobic No organisms No growth Previo us (test code = 00950-0) isolated prelim inary verified result was Culture [...] Culture-Anaerobic isolated preliminar y (test code = 78198-3) verifi ed result was Culture In Progress [...] CDT Lab Interpretation Normal (test code = 67009-3) [facility] GLUCOSE (AUTOMATED)2022-02-20 14:13:49 Test Item Value Reference Range Interpretation Comments POCT GLU (test code = 5023040398) 176 mg/dL 70-110 H Lab Interpretation (test code = Abnormal 62968-0) [facility] GLUCOSE (AUTOMATED)2022-02-20 14:13:49 Test Item Value Reference Range Interpretation Comments POCT GLU (test code = 9718329498) 176 mg/dL 70-110 H Lab Interpretation (test code = Abnormal 45748-0) [facility] GLUCOSE (AUTOMATED)2022-02-20 02:30:54 Test Item Value Reference Range Interpretation Comments POCT GLU (test code = 4128307212) 113 mg/dL 70-110 H Lab Interpretation (test code = Abnormal 70321-4) [facility] GLUCOSE (AUTOMATED)2022-02-20 02:30:54 Test Item Value Reference Range Interpretation Comments POCT GLU (test code = 1440991660) 113 mg/dL 70-110 H Lab Interpretation (test code = Abnormal 46920-9) [facility] GLUCOSE (AUTOMATED)2022-02-19 23:41:12 Test Item Value Reference Range Interpretation Comments POCT GLU (test code = 4281106504) 135 mg/dL 70-110 H Lab Interpretation (test code = Abnormal 57359-4) [facility] GLUCOSE (AUTOMATED)2022-02-19 23:41:12 Test Item Value Reference Range Interpretation Comments POCT GLU (test code = 7955311408) 135 mg/dL 70-110 H Lab Interpretation (test code = Abnormal 72434-8) [facility] GLUCOSE (AUTOMATED)2022-02-19 17:13:18 Test Item Value Reference Range Interpretation Comments POCT GLU (test code = 1708305616) 238 mg/dL 70-110 H Lab Interpretation (test code = Abnormal 14560-7) [facility] GLUCOSE (AUTOMATED)2022-02-19 17:13:18 Test Item Value Reference Range Interpretation Comments POCT GLU (test code = 0041739713) 238 mg/dL 70-110 H Lab Interpretation (test code = Abnormal 21885-1) [facility] GLUCOSE (AUTOMATED)2022-02-19 17:13:18 Test Item Value Reference Range Interpretation Comments POCT GLU (test code = 9609337669) 238 mg/dL 70-110 H Lab Interpretation (test code = Abnormal 75244-3) [facility] [id number] 16:50:53 Test Item Value Reference Range Interpretation Comments CRP (test code = 0.9 mg/dL See_Comment H [Automated message] 6836195406) The system [employer] generated this result transmit lester reference range : <=0.8. The refe rence range was not u sed to interpret th is result as normal/abnormal . Lab Interpretation (test Abnormal code = 36758-2) [facility] acute hospital-[facility]ACT[facility] [id number] 16:50:53 Test Item Value Reference Range Interpretation Comments CRP (test code = 0.9 mg/dL See_Comment H [Automated message] 6176854738) The system [employer] generated this result transmit lester reference range : <=0.8. The refe rence range was not u sed to interpret th is result as normal/abnormal . Lab Interpretation (test Abnormal code = 82915-9) [facility] acute hospital-REACTIVE [id number] 16:50:53 Test Item Value Reference Range Interpretation Comments CRP (test code = 0.9 mg/dL See_Comment H [Automated message] 5614447837) The system [employer] generated this result transmit lester reference range : <=0.8. The refe rence range was not u sed to interpret th is result as normal/abnormal . Lab Interpretation (test Abnormal code = 21135-8) [facility] GLUCOSE (AUTOMATED)2022-02-19 15:55:49 Test Item Value Reference Range Interpretation Comments POCT GLU (test code = 2387115101) 209 mg/dL 70-110 H Lab Interpretation (test code = Abnormal 30844-3) [facility] GLUCOSE (AUTOMATED)2022-02-19 15:55:49 Test Item Value Reference Range Interpretation Comments POCT GLU (test code = 5671250635) 209 mg/dL 70-110 H Lab Interpretation (test code = Abnormal 05730-3) [facility] GLUCOSE (AUTOMATED)2022-02-19 00:58:44 Test Item Value Reference Range Interpretation Comments POCT GLU (test code = 3570837497) 300 mg/dL 70-110 H Lab Interpretation (test code = Abnormal 09717-3) [facility] GLUCOSE (AUTOMATED)2022-02-19 00:58:44 Test Item Value Reference Range Interpretation Comments POCT GLU (test code = 6129827854) 300 mg/dL 70-110 H Lab Interpretation (test code = Abnormal 52139-6) [facility] GLUCOSE (AUTOMATED)2022-02-18 21:28:03 Test Item Value Reference Range Interpretation Comments POCT GLU (test code = 1799323642) 119 mg/dL 70-110 H Lab Interpretation (test code = Abnormal 98617-5) [facility] GLUCOSE (AUTOMATED)2022-02-18 21:28:03 Test Item Value Reference Range Interpretation Comments POCT GLU (test code = 2404075455) 119 mg/dL 70-110 H Lab Interpretation (test code = Abnormal 34306-8) [facility] GLUCOSE (AUTOMATED)2022-02-18 16:51:05 Test Item Value Reference Range Interpretation Comments POCT GLU (test code = 7703518323) 275 mg/dL 70-110 H Lab Interpretation (test code = Abnormal 69297-1) [facility] GLUCOSE (AUTOMATED)2022-02-18 16:51:05 Test Item Value Reference Range Interpretation Comments POCT GLU (test code = 1285726754) 275 mg/dL 70-110 H Lab Interpretation (test code = Abnormal 12670-1) [facility] METABOLIC PANEL (NA, K, CL, CO2, GLUCOSE, BUN, CREATININE, CA)2022-02-18 15:51:39 Test Item Value Reference Range Interpretation Comments NA (test code = 136 mmol/L 135-145 7718025314) K (test code = 3.7 mmol/L 3.5-5 4895392830) CL (test code = 111 mmol/L 98-108 H 5497114934) CO2 TOTAL (test code = 21 mmol/L 23-31 L 5098298750) AGAP (test code = 2-16 1492006788) BUN (test code = 9 mg/dL 7-23 9432885569) GLUCOSE (test code = 278 mg/dL 70-110 H 2010098527) CREATININE (test code = 0.46 mg/dL 0.6-1.25 L 5454861574) CALCIUM (test code = 8.2 mg/dL 8.6-10.6 L 9396718987) eGFR (test code = mL/min/1.73m2 6556736640) ARPITA (test code = ARPITA) Association of [...] tests). Lab Interpretation Abnormal (test code = 83212-0) [facility] METABOLIC PANEL (NA, K, CL, CO2, GLUCOSE, BUN, CREATININE, CA)2022-02-18 15:51:39 Test Item Value Reference Range Interpretation Comments NA (test code = 136 mmol/L 135-145 8050365898) K (test code = 3.7 mmol/L 3.5-5 3231085222) CL (test code = 111 mmol/L 98-108 H 1516434384) CO2 TOTAL (test code = 21 mmol/L 23-31 L 9007690284) AGAP (test code = 2-16 7986944429) BUN (test code = 9 mg/dL 7-23 4550496112) GLUCOSE (test code = 278 mg/dL 70-110 H 5540663587) CREATININE (test code = 0.46 mg/dL 0.6-1.25 L 0392558392) CALCIUM (test code = 8.2 mg/dL 8.6-10.6 L 2802677850) eGFR (test code = mL/min/1.73m2 1979766258) ARPITA (test code = ARPITA) Association of [...] tests). Lab Interpretation Abnormal (test code = 18628-9) [facility] GLUCOSE (AUTOMATED)2022-02-18 12:36:29 Test Item Value Reference Range Interpretation Comments POCT GLU (test code = 7244790658) 276 mg/dL 70-110 H Lab Interpretation (test code = Abnormal 11447-3) [facility] GLUCOSE (AUTOMATED)2022-02-18 12:36:29 Test Item Value Reference Range Interpretation Comments POCT GLU (test code = 0797299232) 276 mg/dL 70-110 H Lab Interpretation (test code = Abnormal 75766-4) [facility] GLUCOSE (AUTOMATED)2022-02-18 01:29:51 Test Item Value Reference Range Interpretation Comments POCT GLU (test code = 1005961066) 289 mg/dL 70-110 H Lab Interpretation (test code = Abnormal 90436-4) [facility] GLUCOSE (AUTOMATED)2022-02-18 01:29:51 Test Item Value Reference Range Interpretation Comments POCT GLU (test code = 4580485476) 289 mg/dL 70-110 H Lab Interpretation (test code = Abnormal 20274-0) [facility] GLUCOSE (AUTOMATED)2022-02-17 21:24:38 Test Item Value Reference Range Interpretation Comments POCT GLU (test code = 4467627163) 173 mg/dL 70-110 H Lab Interpretation (test code = Abnormal 22210-0) [facility] GLUCOSE (AUTOMATED)2022-02-17 21:24:38 Test Item Value Reference Range Interpretation Comments POCT GLU (test code = 1678429793) 173 mg/dL 70-110 H Lab Interpretation (test code = Abnormal 34760-5) [facility] 16:50:49 Test Item Value Reference Range Interpretation Comments POCT GLU (test code = 2101060031) 279 mg/dL 70-110 H Lab Interpretation (test code = Abnormal 69498-0) [facility] 16:50:49 Test Item Value Reference Range Interpretation Comments POCT GLU (test code = 1906011200) 279 mg/dL 70-110 H Lab Interpretation (test code = Abnormal 85710-5) [facility] GLUCOSE (AUTOMATED)2022-02-17 13:31:23 Test Item Value Reference Range Interpretation Comments POCT GLU (test code = 5712846775) 281 mg/dL 70-110 H Lab Interpretation (test code = Abnormal 22488-7) [facility] GLUCOSE (AUTOMATED)2022-02-17 13:31:23 Test Item Value Reference Range Interpretation Comments POCT GLU (test code = 6213153679) 281 mg/dL 70-110 H Lab Interpretation (test code = Abnormal 93391-6) [facility] 10:02:35 Test Item Value Reference Range Interpretation Comments POCT GLU (test code = 4986867368) 339 mg/dL 70-110 H Lab Interpretation (test code = Abnormal 56194-6) [facility] GLUCOSE (AUTOMATED)2022-02-17 10:02:35 Test Item Value Reference Range Interpretation Comments POCT GLU (test code = 2316624012) 339 mg/dL 70-110 H Lab Interpretation (test code = Abnormal 52025-2) [facility] 06:33:22 Test Item Value Reference Range Interpretation Comments POCT GLU (test code = 8392361050) 295 mg/dL 70-110 H Lab Interpretation (test code = Abnormal 24124-7) [facility] 06:33:22 Test Item Value Reference Range Interpretation Comments POCT GLU (test code = 3754771488) 295 mg/dL 70-110 H Lab Interpretation (test code = Abnormal 47930-7) [facility] GLUCOSE (AUTOMATED)2022-02-17 01:54:18 Test Item Value Reference Range Interpretation Comments POCT GLU (test code = 2655681734) 258 mg/dL 70-110 H Lab Interpretation (test code = Abnormal 23597-9) [facility] GLUCOSE (AUTOMATED)2022-02-17 01:54:18 Test Item Value Reference Range Interpretation Comments POCT GLU (test code = 4545715375) 258 mg/dL 70-110 H Lab Interpretation (test code = Abnormal 39851-0) [facility] GLUCOSE (AUTOMATED)2022-02-16 23:03:09 Test Item Value Reference Range Interpretation Comments POCT GLU (test code = 4042201757) 286 mg/dL 70-110 H Lab Interpretation (test code = Abnormal 37251-8) [facility] GLUCOSE (AUTOMATED)2022-02-16 23:03:09 Test Item Value Reference Range Interpretation Comments POCT GLU (test code = 3644882518) 286 mg/dL 70-110 H Lab Interpretation (test code = Abnormal 35684-8) [facility] GLUCOSE (AUTOMATED)2022-02-16 20:48:08 Test Item Value Reference Range Interpretation Comments POCT GLU (test code = 9860080008) 249 mg/dL 70-110 H Lab Interpretation (test code = Abnormal 91865-7) [facility] GLUCOSE (AUTOMATED)2022-02-16 20:48:08 Test Item Value Reference Range Interpretation Comments POCT GLU (test code = 1076401792) 249 mg/dL 70-110 H Lab Interpretation (test code = Abnormal 95901-9) [id number] 17:01:47 Test Item Value Reference Range Interpretation Comments BOH (test code = 1.0 mmol/L 3853259884) ARPITA (test code = Normal Ranges: ? ? ARPITA) Nonfasting ? Less than 0.1 mmol/L ? ? Overnight Fast ? ? ? Less than 0.4 mmol/L ? ? Fasting (1-2 weeks) ?6-8 mmol/L Test developed and characteristics determined by [facility] Laboratory Services. [facility] [id number] 17:01:47 Test Item Value Reference Range Interpretation Comments BOH (test code = 1.0 mmol/L 6383757634) ARPITA (test code = Normal Ranges: ? ? ARPITA) Nonfasting ? Less than 0.1 mmol/L ? ? Overnight Fast ? ? ? Less than 0.4 mmol/L ? ? Fasting (1-2 weeks) ?6-8 mmol/L Test developed and characteristics determined by [facility] [facility]. [facility] [id number] 17:01:47 Test Item Value Reference Range Interpretation Comments BOH (test code = 1.0 mmol/L 6755828841) ARPITA (test code = Normal Ranges: ? ? ARPITA) Nonfasting ? Less than 0.1 mmol/L ? ? Overnight Fast ? ? ? Less than 0.4 mmol/L ? ? Fasting (1-2 weeks) ?6-8 mmol/L Test developed and characteristics determined by [facility] Laboratory Services. [facility] GLUCOSE (AUTOMATED)2022-02-16 16:42:59 Test Item Value Reference Range Interpretation Comments POCT GLU (test code = 8292839379) 264 mg/dL 70-110 H Lab Interpretation (test code = Abnormal 15283-1) [facility] GLUCOSE (AUTOMATED)2022-02-16 16:42:59 Test Item Value Reference Range Interpretation Comments POCT GLU (test code = 3298773670) 264 mg/dL 70-110 H Lab Interpretation (test code = Abnormal 88576-6) [facility] (Na, K, Cl, CO2, Glucose, BUN, Creatinine, Ca)2022-02-16 16:16:20 Test Item Value Reference Range Interpretation Comments NA (test code = 137 mmol/L 135-145 4343552487) K (test code = 3.5 mmol/L 3.5-5 7317601540) CL (test code = 115 mmol/L 98-108 H 8376570311) CO2 TOTAL (test code = 17 mmol/L 23-31 L 1608527551) AGAP (test code = 2-16 6986211384) BUN (test code = 5 mg/dL 7-23 L 4374264527) GLUCOSE (test code = 271 mg/dL 70-110 H 1517348939) CREATININE (test code = 0.45 mg/dL 0.6-1.25 L 4533566127) CALCIUM (test code = 8.5 mg/dL 8.6-10.6 L 3843788909) eGFR (test code = mL/min/1.73m2 4758217521) ARPITA (test code = ARPITA) Association of [...] tests). Lab Interpretation Abnormal (test code = 95442-4) [facility] Met[facility] (Na, K, Cl, CO2, Glucose, BUN, Creatinine, Ca)2022-02-16 16:16:20 Test Item Value Reference Range Interpretation Comments NA (test code = 137 mmol/L 135-145 7697167705) K (test code = 3.5 mmol/L 3.5-5 8268579974) CL (test code = 115 mmol/L 98-108 H 0475117359) CO2 TOTAL (test code = 17 mmol/L 23-31 L 0476146747) AGAP (test code = 2-16 2593889888) BUN (test code = 5 mg/dL 7-23 L 1575320873) GLUCOSE (test code = 271 mg/dL 70-110 H 3476396287) CREATININE (test code = 0.45 mg/dL 0.6-1.25 L 7568282695) CALCIUM (test code = 8.5 mg/dL 8.6-10.6 L 6668350104) eGFR (test code = mL/min/1.73m2 7336017218) ARPITA (test code = ARPITA) Association of [...] tests). Lab Interpretation Abnormal (test code = 67613-3) [facility] GLUCOSE (AUTOMATED)2022-02-16 14:21:27 Test Item Value Reference Range Interpretation Comments POCT GLU (test code = 9400565412) 286 mg/dL 70-110 H Lab Interpretation (test code = Abnormal 98037-8) [facility] GLUCOSE (AUTOMATED)2022-02-16 14:21:27 Test Item Value Reference Range Interpretation Comments POCT GLU (test code = 6398458356) 286 mg/dL 70-110 H Lab Interpretation (test code = Abnormal 07085-0) [facility] POSITIVE BLOOD PATHOGENS DNA [id number] 13:29:25 Test Item Value Reference Range Interpretation Comments Coagulase Negative Positive Negative, See A Staphylococcus (test Comment/Narrative code = 08148-8) ARPITA (test code = ARPITA) Coagulase negative [...] contact the Antimicrobial Stewardship Program with questions.Pager: ?[phone] Testing included eleven identification and three resistance marker targets. Lab Interpretation Abnormal (test code = 60894-3) [facility] POSITIVE BLOOD PATHOGENS DNA [id number] 13:29:25 Test Item Value Reference Range Interpretation Comments Coagulase Negative Positive Negative, See A Staphylococcus (test Comment/Narrative code = 07684-1) ARPITA (test code = ARPITA) Coagulase negative [...] contact the Antimicrobial Stewardship Program with questions.Pager: ?[phone] Testing included eleven identification and three resistance marker targets. Lab Interpretation Abnormal (test code = 39461-7) [facility]LO[facility] PATHOGENS DNA [id number] 13:29:25 Test Item Value Reference Range Interpretation Comments Coagulase Negative Positive Negative, See A Staphylococcus (test Comment/Narrative code = 37757-1) ARPITA (test code = ARPITA) Coagulase negative [...] contact the Antimicrobial Stewardship Program with questions.Pager: ?[phone] Testing included eleven identification and three resistance marker targets. Lab Interpretation Abnormal (test code = 24940-2) [facility]22-[facility]-16 13:03:22 Test Item Value Reference Range Interpretation Comments POCT GLU (test code = 4057875197) 307 mg/dL 70-110 H Lab Interpretation (test code = Abnormal 29299-4) [facility] GLUCOSE (AUTOMATED)2022-02-16 13:03:22 Test Item Value Reference Range Interpretation Comments POCT GLU (test code = 3443327455) 307 mg/dL 70-110 H Lab Interpretation (test code = Abnormal 81284-4) [facility] GLUCOSE (AUTOMATED)2022-02-16 09:05:19 Test Item Value Reference Range Interpretation Comments POCT GLU (test code = 0621884284) 326 mg/dL 70-110 H Lab Interpretation (test code = Abnormal 07566-0) [facility] GLUCOSE (AUTOMATED)2022-02-16 09:05:19 Test Item Value Reference Range Interpretation Comments POCT GLU (test code = 2587760255) 326 mg/dL 70-110 H Lab Interpretation (test code = Abnormal 35437-8) [facility] GLUCOSE (AUTOMATED)2022-02-16 05:46:58 Test Item Value Reference Range Interpretation Comments POCT GLU (test code = 9882594183) 341 mg/dL 70-110 H Lab Interpretation (test code = Abnormal 46880-3) [facility] GLUCOSE (AUTOMATED)2022-02-16 05:46:58 Test Item Value Reference Range Interpretation Comments POCT GLU (test code = 9272848760) 341 mg/dL 70-110 H Lab Interpretation (test code = Abnormal 32151-7) [facility] GLUCOSE (AUTOMATED)2022-02-16 01:37:20 Test Item Value Reference Range Interpretation Comments POCT GLU (test code = 6577626154) 196 mg/dL 70-110 H Lab Interpretation (test code = Abnormal 09753-1) [facility] GLUCOSE (AUTOMATED)2022-02-16 01:37:20 Test Item Value Reference Range Interpretation Comments POCT GLU (test code = 1543228585) 196 mg/dL 70-110 H Lab Interpretation (test code = Abnormal 02106-8) [facility] GLUCOSE (AUTOMATED)2022-02-15 23:44:41 Test Item Value Reference Range Interpretation Comments POCT GLU (test code = 7839416169) 138 mg/dL 70-110 H Lab Interpretation (test code = Abnormal 41367-8) [facility]2022-02-15 23:44:41 Test Item Value Reference Range Interpretation Comments POCT GLU (test code = 2618346946) 138 mg/dL 70-110 H Lab Interpretation (test code = Abnormal 23514-4) [facility] Metabolic Panel (Na, K, Cl, CO2, Glucose, BUN, Creatinine, Ca)2022-02-15 23:12:45 Test Item Value Reference Range Interpretation Comments NA (test code = 138 mmol/L 135-145 4507526178) K (test code = 3.7 mmol/L 3.5-5 9764516948) CL (test code = 115 mmol/L 98-108 H 6905457000) CO2 TOTAL (test code = 17 mmol/L 23-31 L 1322338322) AGAP (test code = 2-16 8851563992) BUN (test code = 5 mg/dL 7-23 L 2362410552) GLUCOSE (test code = 86 mg/dL 70-110 1321728261) CREATININE (test code = 0.46 mg/dL 0.6-1.25 L 4964159817) CALCIUM (test code = 8.4 mg/dL 8.6-10.6 L 9687952318) eGFR (test code = mL/min/1.73m2 1636610066) ARPITA (test code = ARPITA) Association of [...] tests). Lab Interpretation Abnormal (test code = 71703-5) [facility] Metabolic Panel (Na, K, Cl, CO2, Glucose, BUN, Creatinine, Ca)2022-02-15 23:12:45 Test Item Value Reference Range Interpretation Comments NA (test code = 138 mmol/L 135-145 3965458636) K (test code = 3.7 mmol/L 3.5-5 5626487081) CL (test code = 115 mmol/L 98-108 H 1603153159) CO2 TOTAL (test code = 17 mmol/L 23-31 L 2816233532) AGAP (test code = 2-16 1668821264) BUN (test code = 5 mg/dL 7-23 L 1874049901) GLUCOSE (test code = 86 mg/dL 70-110 1569650689) CREATININE (test code = 0.46 mg/dL 0.6-1.25 L 0756731862) CALCIUM (test code = 8.4 mg/dL 8.6-10.6 L 5371700152) eGFR (test code = mL/min/1.73m2 3658813290) ARPITA (test code = ARPITA) Association of [...] tests). Lab Interpretation Abnormal (test code = 84912-2) [facility] GLUCOSE (AUTOMATED)2022-02-15 22:38:52 Test Item Value Reference Range Interpretation Comments POCT GLU (test code = 0976590375) 94 mg/dL 70-110 Lab Interpretation (test code = Normal 57464-5) [facility] GLUCOSE (AUTOMATED)2022-02-15 22:38:52 Test Item Value Reference Range Interpretation Comments POCT GLU (test code = 8359124985) 94 mg/dL 70-110 Lab Interpretation (test code = Normal 14758-3) [facility] GLUCOSE (AUTOMATED)2022-02-15 21:31:35 Test Item Value Reference Range Interpretation Comments POCT GLU (test code = 7043549652) 119 mg/dL 70-110 H Lab Interpretation (test code = Abnormal 57399-9) [facility] GLUCOSE (AUTOMATED)2022-02-15 21:31:35 Test Item Value Reference Range Interpretation Comments POCT GLU (test code = 2998199214) 119 mg/dL 70-110 H Lab Interpretation (test code = Abnormal 03338-8) [facility] GLUCOSE (AUTOMATED)2022-02-15 20:06:03 Test Item Value Reference Range Interpretation Comments POCT GLU (test code = 0994996479) 177 mg/dL 70-110 H Lab Interpretation (test code = Abnormal 88755-8) [facility] GLUCOSE (AUTOMATED)2022-02-15 20:06:03 Test Item Value Reference Range Interpretation Comments POCT GLU (test code = 2753746629) 177 mg/dL 70-110 H Lab Interpretation (test code = Abnormal 92704-7) [facility] GLUCOSE (AUTOMATED)2022-02-15 19:07:20 Test Item Value Reference Range Interpretation Comments POCT GLU (test code = 9965274671) 185 mg/dL 70-110 H Lab Interpretation (test code = Abnormal 17313-5) [facility] GLUCOSE (AUTOMATED)2022-02-15 19:07:20 Test Item Value Reference Range Interpretation Comments POCT GLU (test code = 9676425516) 185 mg/dL 70-110 H Lab Interpretation (test code = Abnormal 24091-7) [facility] [id number] 18:44:53 Test Item Value Reference Interpretation Comments Range TROPONIN I (test 0.000 ng/mL See_Comment [Automated code = 5062249257) message] The system which generated this result [...] biotin. Lab Interpretation Normal (test code = 30684-4) [facility] [id number] 18:44:53 Test Item Value Reference Interpretation Comments Range TROPONIN I (test 0.000 ng/mL See_Comment [Automated code = 2930448379) message] The system which generated this result [...] biotin. Lab Interpretation Normal (test code = 43487-4) [id number] 18:44:53 Test Item Value Reference Interpretation Comments Range TROPONIN I (test 0.000 ng/mL See_Comment [Automated code = 6628630435) message] The system which generated this result [...] biotin. Lab Interpretation Normal (test code = 54646-0) [facility] Met[facility] (Na, K, Cl, CO2, Glucose, BUN, Creatinine, Ca)2022-02-15 18:27:49 Test Item Value Reference Range Interpretation Comments NA (test code = 138 mmol/L 135-145 4997086412) K (test code = 3.7 mmol/L 3.5-5 1109706788) CL (test code = 115 mmol/L 98-108 H 2784940825) CO2 TOTAL (test code = 16 mmol/L 23-31 L 9800781858) AGAP (test code = 2-16 5711060526) BUN (test code = 7 mg/dL 7-23 8844106245) GLUCOSE (test code = 195 mg/dL 70-110 H 4029025180) CREATININE (test code = 0.52 mg/dL 0.6-1.25 L 2841666542) CALCIUM (test code = 8.2 mg/dL 8.6-10.6 L 0541911990) eGFR (test code = mL/min/1.73m2 5665219875) ARPITA (test code = ARPITA) Association of [...] tests). Lab Interpretation Abnormal (test code = 14945-4) [facility] Met[facility] Panel (Na, K, Cl, CO2, Glucose, BUN, Creatinine, Ca)2022-02-15 18:27:49 Test Item Value Reference Range Interpretation Comments NA (test code = 138 mmol/L 135-145 0638577662) K (test code = 3.7 mmol/L 3.5-5 8153088022) CL (test code = 115 mmol/L 98-108 H 0908999829) CO2 TOTAL (test code = 16 mmol/L 23-31 L 2993272267) AGAP (test code = 2-16 0547543748) BUN (test code = 7 mg/dL 7-23 8764346181) GLUCOSE (test code = 195 mg/dL 70-110 H 6034263923) CREATININE (test code = 0.52 mg/dL 0.6-1.25 L 9786855909) CALCIUM (test code = 8.2 mg/dL 8.6-10.6 L 6449491945) eGFR (test code = mL/min/1.73m2 1259532865) ARPITA (test code = ARPITA) Association of [...] tests). Lab Interpretation Abnormal (test code = 87127-9) [facility] CenterBetahydroxy-Dqeywgum3540-90-03 17:43:01 Test Item Value Reference Range Interpretation Comments BOH (test code = 3.3 mmol/L 4511403904) ARPITA (test code = Normal Ranges: ? ? ARPITA) Nonfasting ? Less than 0.1 mmol/L ? ? Overnight Fast ? ? ? Less than 0.4 mmol/L ? ? Fasting (1-2 weeks) ?6-8 mmol/L Test developed and characteristics determined by [facility] Laboratory Services. [facility] CenterBetahydroxy-Ipymevyx0826-82-33 17:43:01 Test Item Value Reference Range Interpretation Comments BOH (test code = 3.3 mmol/L 4636432003) ARPITA (test code = Normal Ranges: ? ? ARPITA) Nonfasting ? Less than 0.1 mmol/L ? ? Overnight Fast ? ? ? Less than 0.4 mmol/L ? ? Fasting (1-2 weeks) ?6-8 mmol/L Test developed and characteristics determined by [facility] Laboratory Services. [facility] GLUCOSE (AUTOMATED)2022-02-15 17:29:05 Test Item Value Reference Range Interpretation Comments POCT GLU (test code = 5087078356) 192 mg/dL 70-110 H Lab Interpretation (test code = Abnormal 28408-5) [facility] GLUCOSE (AUTOMATED)2022-02-15 17:29:05 Test Item Value Reference Range Interpretation Comments POCT GLU (test code = 4045230988) 192 mg/dL 70-110 H Lab Interpretation (test code = Abnormal 92231-1) [facility] CenterOsmolaty Oqyuj9784-32-04 16:28:42 Test Item Value Reference Range Interpretation Comments OSMOLALITY (test code = See_Comment H [Au tomated message] 2692-2) The system [employer] generated this result transmitted ref erence range: 278 - 30 5 mOsm/kg. The reference range was not used to int erpret this result as normal/abnormal . Lab Interpretation (test Abnormal code = 28248-1) [facility] [id number] 16:28:42 Test Item Value Reference Range Interpretation Comments OSMOLALITY (test code = See_Comment H [Au tomated message] 2692-2) The system [employer] generated this result transmitted ref erence range: 278 - 30 5 mOsm/kg. The reference range was not used to int erpret this result as normal/abnormal . Lab Interpretation (test Abnormal code = 02215-9) [facility] CenterOsmolality [id number] 16:28:42 Test Item Value Reference Range Interpretation Comments OSMOLALITY (test code = See_Comment H [Au tomated message] 2692-2) The system [employer] generated this result transmitted ref erence range: 278 - 30 5 mOsm/kg. The reference range was not used to int erpret this result as normal/abnormal . Lab Interpretation (test Abnormal code = 33581-6) [facility] Metabolic Panel (Na, K, Cl, CO2, Glucose, BUN, Creatinine, Ca)2022-02-15 16:02:27 Test Item Value Reference Range Interpretation Comments NA (test code = 138 mmol/L 135-145 8069149393) K (test code = 3.7 mmol/L 3.5-5 9247532759) CL (test code = 117 mmol/L 98-108 H 5177241763) CO2 TOTAL (test code = 15 mmol/L 23-31 L 5399574866) AGAP (test code = 2-16 4368118962) BUN (test code = 7 mg/dL 7-23 0577390533) GLUCOSE (test code = 204 mg/dL 70-110 H 8804850723) CREATININE (test code = 0.41 mg/dL 0.6-1.25 L 3689104890) CALCIUM (test code = 8.3 mg/dL 8.6-10.6 L 7632580204) eGFR (test code = mL/min/1.73m2 5845820266) ARPITA (test code = ARPITA) Association of [...] tests). Lab Interpretation Abnormal (test code = 95362-2) [facility] Metabolic Panel (Na, K, Cl, CO2, Glucose, BUN, Creatinine, Ca)2022-02-15 16:02:27 Test Item Value Reference Range Interpretation Comments NA (test code = 138 mmol/L 135-145 9882908283) K (test code = 3.7 mmol/L 3.5-5 3578916691) CL (test code = 117 mmol/L 98-108 H 1009584565) CO2 TOTAL (test code = 15 mmol/L 23-31 L 6816871006) AGAP (test code = 2-16 8092167988) BUN (test code = 7 mg/dL 7-23 6413831175) GLUCOSE (test code = 204 mg/dL 70-110 H 1055875749) CREATININE (test code = 0.41 mg/dL 0.6-1.25 L 2711756103) CALCIUM (test code = 8.3 mg/dL 8.6-10.6 L 0374923846) eGFR (test code = mL/min/1.73m2 9619658248) ARPITA (test code = ARPITA) Association of [...] tests). Lab Interpretation Abnormal (test code = 47890-7) [facility] GLUCOSE (AUTOMATED)2022-02-15 15:54:35 Test Item Value Reference Range Interpretation Comments POCT GLU (test code = 7365910667) 200 mg/dL 70-110 H Lab Interpretation (test code = Abnormal 73195-5) [facility] GLUCOSE (AUTOMATED)2022-02-15 15:54:35 Test Item Value Reference Range Interpretation Comments POCT GLU (test code = 2846734460) 200 mg/dL 70-110 H Lab Interpretation (test code = Abnormal 88729-6) [facility] GLUCOSE (AUTOMATED)2022-02-15 14:57:17 Test Item Value Reference Range Interpretation Comments POCT GLU (test code = 8870582778) 211 mg/dL 70-110 H Lab Interpretation (test code = Abnormal 58276-2) [facility] GLUCOSE (AUTOMATED)2022-02-15 14:57:17 Test Item Value Reference Range Interpretation Comments POCT GLU (test code = 1658208990) 211 mg/dL 70-110 H Lab Interpretation (test code = Abnormal 07066-9) [facility] GLUCOSE (AUTOMATED)2022-02-15 13:50:06 Test Item Value Reference Range Interpretation Comments POCT GLU (test code = 2113836069) 216 mg/dL 70-110 H Lab Interpretation (test code = Abnormal 65250-1) [facility] GLUCOSE (AUTOMATED)2022-02-15 13:50:06 Test Item Value Reference Range Interpretation Comments POCT GLU (test code = 3422671973) 216 mg/dL 70-110 H Lab Interpretation (test code = Abnormal 70244-0) [facility] GLUCOSE (AUTOMATED)2022-02-15 10:43:13 Test Item Value Reference Range Interpretation Comments POCT GLU (test code = 6042816713) 199 mg/dL 70-110 H Lab Interpretation (test code = Abnormal 89985-0) [facility] GLUCOSE (AUTOMATED)2022-02-15 10:43:13 Test Item Value Reference Range Interpretation Comments POCT GLU (test code = 0826834631) 199 mg/dL 70-110 H Lab Interpretation (test code = Abnormal 96481-6) [facility] GLUCOSE (AUTOMATED)2022-02-15 09:31:59 Test Item Value Reference Range Interpretation Comments POCT GLU (test code = 0799370885) 172 mg/dL 70-110 H Lab Interpretation (test code = Abnormal 23901-3) [facility] GLUCOSE (AUTOMATED)2022-02-15 09:31:59 Test Item Value Reference Range Interpretation Comments POCT GLU (test code = 9282210278) 172 mg/dL 70-110 H Lab Interpretation (test code = Abnormal 58196-8) [facility] Metabolic Panel (Na, K, Cl, CO2, Glucose, BUN, Creatinine, Ca)2022-02-15 08:02:13 Test Item Value Reference Range Interpretation Comments NA (test code = 140 mmol/L 135-145 3982046863) K (test code = 3.8 mmol/L 3.5-5 3921002320) CL (test code = 110 mmol/L 98-108 H 5683937009) CO2 TOTAL (test code = 13 mmol/L 23-31 L 3704472594) AGAP (test code = 2-16 H 7573901727) BUN (test code = 10 mg/dL 7-23 5080535264) GLUCOSE (test code = 223 mg/dL 70-110 H 5869839935) CREATININE (test code = 0.58 mg/dL 0.6-1.25 L 1704733391) CALCIUM (test code = 8.8 mg/dL 8.6-10.6 8936522690) eGFR (test code = mL/min/1.73m2 6629427959) ARPITA (test code = ARPITA) Association of [...] tests). Lab Interpretation Abnormal (test code = 60318-0) [facility] Metabolic Panel (Na, K, Cl, CO2, Glucose, BUN, Creatinine, Ca)2022-02-15 08:02:13 Test Item Value Reference Range Interpretation Comments NA (test code = 140 mmol/L 135-145 9993488022) K (test code = 3.8 mmol/L 3.5-5 3038932630) CL (test code = 110 mmol/L 98-108 H 0346031308) CO2 TOTAL (test code = 13 mmol/L 23-31 L 6134765424) AGAP (test code = 2-16 H 6301869756) BUN (test code = 10 mg/dL 7-23 6429710137) GLUCOSE (test code = 223 mg/dL 70-110 H 3699576301) CREATININE (test code = 0.58 mg/dL 0.6-1.25 L 3441109121) CALCIUM (test code = 8.8 mg/dL 8.6-10.6 2556073693) eGFR (test code = mL/min/1.73m2 6672078299) ARPITA (test code = ARPITA) Association of [...] tests). Lab Interpretation Abnormal (test code = 27281-9) [facility] 07:26:01 Test Item Value Reference Range Interpretation Comments POCT GLU (test code = 3270165277) 245 mg/dL 70-110 H Lab Interpretation (test code = Abnormal 72210-8) [facility] GLUCOSE (AUTOMATED)2022-02-15 07:26:01 Test Item Value Reference Range Interpretation Comments POCT GLU (test code = 1059638781) 245 mg/dL 70-110 H Lab Interpretation (test code = Abnormal 96964-8) [facility] GLUCOSE(AGE >30DAYS)2022-02-15 07:11:00 Test Item Value Reference Range Interpretation Comments POCT Glu (age>30days) (test code = 245 mg/dL 70-110 3342) Lab Interpretation (test code = Normal 10357-7) [facility] GLUCOSE(AGE >30DAYS)2022-02-15 07:11:00 Test Item Value Reference Range Interpretation Comments POCT Glu (age>30days) (test code = 245 mg/dL 70-110 3342) Lab Interpretation (test code = Normal 73748-3) [facility] GLUCOSE(AGE >30DAYS)2022-02-15 07:11:00 Test Item Value Reference Range Interpretation Comments POCT Glu (age>30days) (test code = 245 mg/dL 70-110 3342) Lab Interpretation (test code = Normal 34119-9) [facility]2022-02-15 05:57:25 Test Item Value Reference Range Interpretation Comments HGB A1C (test code = 12.7 % 4-5.7 H 4548-4) ARPITA (test code = ARPITA) Reference RangesNormal: <5.7%Prediabetes: 5.7 - 6.4%Diabetes: > 6.5% Lab Interpretation (test Abnormal code = 63561-8) [facility])2022-02-15 05:57:25 Test Item Value Reference Range Interpretation Comments HGB A1C (test code = 12.7 % 4-5.7 H 4548-4) ARPITA (test code = ARPITA) Reference RangesNormal: <5.7%Prediabetes: 5.7 - 6.4%Diabetes: > 6.5% Lab Interpretation (test Abnormal code = 96239-1) [facility]2022-02-15 05:57:25 Test Item Value Reference Range Interpretation Comments HGB A1C (test code = 12.7 % 4-5.7 H 4548-4) ARPITA (test code = ARPITA) Reference RangesNormal: <5.7%Prediabetes: 5.7 - 6.4%Diabetes: > 6.5% Lab Interpretation (test Abnormal code = 46289-2) [facility] Npbme7759-85-74 05:46:44 Test Item Value Reference Range Interpretation Comments MAGNESIUM (test code = 2824694957) 1.7 mg/dL 1.7-2.4 Lab Interpretation (test code = Normal 07517-9) [facility] Tntww8266-34-84 05:46:44 Test Item Value Reference Range Interpretation Comments MAGNESIUM (test code = 6415038541) 1.7 mg/dL 1.7-2.4 Lab Interpretation (test code = Normal 44225-8) [facility] Uemfz7204-59-54 05:46:24 Test Item Value Reference Range Interpretation Comments PHOSPHORUS (test code = 0057934520) 4.0 mg/dL 2.5-5 Lab Interpretation (test code = Normal 39476-6) [facility] Sstmn2396-34-19 05:46:24 Test Item Value Reference Range Interpretation Comments PHOSPHORUS (test code = 6225572113) 4.0 mg/dL 2.5-5 Lab Interpretation (test code = Normal 43477-6) [facility] Mwisj7854-79-89 05:46:24 Test Item Value Reference Range Interpretation Comments PHOSPHORUS (test code = 1333880805) 4.0 mg/dL 2.5-5 Lab Interpretation (test code = Normal 60830-7) [facility] GLUCOSE (AUTOMATED)2022-02-15 05:11:10 Test Item Value Reference Range Interpretation Comments POCT GLU (test code = 1391548062) 410 mg/dL 70-110 H Lab Interpretation (test code = Abnormal 45105-5) [facility] GLUCOSE (AUTOMATED)2022-02-15 05:11:10 Test Item Value Reference Range Interpretation Comments POCT GLU (test code = 1353659898) 410 mg/dL 70-110 H Lab Interpretation (test code = Abnormal 24955-0) [facility] GLUCOSE(AGE >30DAYS)2022-02-15 05:11:00 Test Item Value Reference Range Interpretation Comments POCT Glu (age>30days) (test code = 410 mg/dL 70-110 A 3342) Lab Interpretation (test code = Abnormal 37314-5) [facility] GLUCOSE(AGE >30DAYS)2022-02-15 05:11:00 Test Item Value Reference Range Interpretation Comments POCT Glu (age>30days) (test code = 410 mg/dL 70-110 A 3342) Lab Interpretation (test code = Abnormal 01790-9) [facility] WITH [id number] 05:03:57 Test Item Value Reference Range Interpretation Comments WBC (test code = See_Comment [Automated 8790-2) message] The sy stem which generated this result transmitted reference range : 4.20 - 10.70 10*3/?L. The reference range was not used to interpret this result as normal/abnormal . RBC (test code = See_Comment [Automated 846-8) message] The sy stem which [...] RDW-SD (test code = 44.1 fL 38.5-51.6 65683-6) RDW-CV (test code = 13.8 % 12.1-15.4 788-0) PLT (test code = See_Comment H [Automated 667-3) message] The sy stem which generated this result transmitted reference range : 150 - 328 10*3/ ?L. The reference r boubacar was not used to interpret this result as normal/abnormal . MPV (test code = 12.2 fL 9.8-13 28937-8) IPF % (test code = 9.4 % 1.2-10.7 Platelet count 2770269680) measured by fluorescence method. NRBC/100 WBC (test See_Comment [Automat ed code = 1476369575) message] The system which generated this result transmitted reference range : 0.0 - 10.0 /100 WBCs. The refer ence range was not u sed to interpret th is result as normal/abnormal . NRBC x10^3 (test code See_Comment [Auto mated = 5749734036) message] The s ystem which generated this result transmitted reference range : 10*3/?L. The reference range was not used to interpret this result as normal/abnormal . GRAN MAT (NEUT) % 65.1 % (test code = 770-8) IMM GRAN % (test code 1.10 % = 1474674974) LYMPH % (test code = 22.4 % 736-9) MONO % (test code = 9.8 % 5905-5) EOS % (test code = 1.4 % 713-8) BASO % (test code = 0.2 % 706-2) GRAN MAT x10^3(ANC) 6.15 10*3/uL 1.99-6.95 (test code = 6503124206) IMM GRAN x10^3 (test 0.10 10*3/uL 0-0.06 H code = 7516412447) LYMPH x10^3 (test code 2.11 10*3/uL 1.09-3.23 = 731-0) MONO x10^3 (test code 0.92 10*3/uL 0.36-1.02 = 742-7) EOS x10^3 (test code = 0.13 10*3/uL 0.06-0.53 711-2) BASO x10^3 (test code 0.01-0.09 = 704-7) Lab Interpretation Abnormal (test code = 07196-4) [facility] WITH [id number] 05:03:57 Test Item Value Reference Range Interpretation [...] RDW-SD (test code = 44.1 fL 38.5-51.6 22431-2) RDW-CV (test code = 13.8 % 12.1-15.4 788-0) PLT (test code = See_Comment H [Automated 777-3) message] The sy stem which generated this result transmitted reference range : 150 - 328 10*3/ ?L. The reference r boubacar was not used to interpret this result as normal/abnormal . MPV (test code = 12.2 fL 9.8-13 66265-5) IPF % (test code = 9.4 % 1.2-10.7 Platelet count 7019028174) measured by fluorescence method. NRBC/100 WBC (test See_Comment [Automat ed code = 7265081457) message] The system which generated this result transmitted reference range : 0.0 - 10.0 /100 WBCs. The refer ence range was not u sed to interpret th is result as normal/abnormal . NRBC x10^3 (test code See_Comment [Auto mated = 3563526553) message] The s ystem which generated this result transmitted reference range : 10*3/?L. The reference range was not used to interpret this result as normal/abnormal . GRAN MAT (NEUT) % 65.1 % (test code = 770-8) IMM GRAN % (test code 1.10 % = 2105694067) LYMPH % (test code = 22.4 % 736-9) MONO % (test code = 9.8 % 5905-5) EOS % (test code = 1.4 % 713-8) BASO % (test code = 0.2 % 706-2) GRAN MAT x10^3(ANC) 6.15 10*3/uL 1.99-6.95 (test code = 6316897073) IMM GRAN x10^3 (test 0.10 10*3/uL 0-0.06 H code = 8510860972) LYMPH x10^3 (test code 2.11 10*3/uL 1.09-3.23 = 731-0) MONO x10^3 (test code 0.92 10*3/uL 0.36-1.02 = 742-7) EOS x10^3 (test code = 0.13 10*3/uL 0.06-0.53 711-2) BASO x10^3 (test code 0.01-0.09 = 704-7) Lab Interpretation Abnormal (test code = 04234-9) [facility] METABOLIC PANEL (NA, K, CL, CO2, GLUCOSE, BUN, CREATININE, CA)2022-02-15 04:46:12 Test Item Value Reference Range Interpretation Comments NA (test code = 136 mmol/L 135-145 9919269966) K (test code = 5.1 mmol/L 3.5-5 H 3655040931) CL (test code = 106 mmol/L 98-108 9466892350) CO2 TOTAL (test code = 9 mmol/L 23-31 L 4877701231) AGAP (test code = 2-16 H 0992426799) BUN (test code = 11 mg/dL 7-23 5357364748) GLUCOSE (test code = 405 mg/dL 70-110 H 1243038661) CREATININE (test code = 0.62 mg/dL 0.6-1.25 6672105241) CALCIUM (test code = 9.5 mg/dL 8.6-10.6 1571289566) eGFR (test code = mL/min/1.73m2 5633802130) ARPITA (test code = ARPITA) Association of [...] tests). Lab Interpretation Abnormal (test code = 34709-2) [facility] METABOLIC PANEL (NA, K, CL, CO2, GLUCOSE, BUN, CREATININE, CA)2022-02-15 04:46:12 Test Item Value Reference Range Interpretation Comments NA (test code = 136 mmol/L 135-145 3744081853) K (test code = 5.1 mmol/L 3.5-5 H 5979271637) CL (test code = 106 mmol/L 98-108 1041075381) CO2 TOTAL (test code = 9 mmol/L 23-31 L 4002816395) AGAP (test code = 2-16 H 9676949572) BUN (test code = 11 mg/dL 7-23 3860755016) GLUCOSE (test code = 405 mg/dL 70-110 H 0323299746) CREATININE (test code = 0.62 mg/dL 0.6-1.25 5761832050) CALCIUM (test code = 9.5 mg/dL 8.6-10.6 5553100211) eGFR (test code = mL/min/1.73m2 4109119846) ARPITA (test code = ARPITA) Association of [...] tests). Lab Interpretation Abnormal (test code = 43357-9) [facility] / [id number] 04:43:36 Test Item Value Reference Range Interpretation Comments PROTIME PATIENT (test See_Comment [Auto mated message] code = 5964-2) The system [employer] generated this result transmitted ref erence range: 12.0 - 1 4.7 Seconds. The re ference range was not u sed to interpret this result as normal/abnor mal. INR (test code = 6301-6) Nor mal INR <1.1; Warfarin Therap eutic range 2.0 to 3. 0 or 2.5 to 3.5, dep ending upon the indica tions. Lab Interpretation (test Normal code = 59763-1) [facility] / [id number] 04:43:36 Test Item Value Reference Range Interpretation Comments PROTIME PATIENT (test See_Comment [Auto mated message] code = 5964-2) The system [employer] generated this result transmitted ref erence range: 12.0 - 1 4.7 Seconds. The re ference range was not u sed to interpret this result as normal/abnor mal. INR (test code = 6301-6) Nor mal INR <1.1; Warfarin Therap eutic range 2.0 to 3. 0 or 2.5 to 3.5, dep ending upon the indica tions. Lab Interpretation (test Normal code = 24667-2) [facility] / [id number] 04:43:36 Test Item Value Reference Range Interpretation Comments PROTIME PATIENT (test See_Comment [Auto mated message] code = 5964-2) The system [employer] generated this result transmitted ref erence range: 12.0 - 1 4.7 Seconds. The re ference range was not u sed to interpret this result as normal/abnor mal. INR (test code = 6301-6) Nor mal INR <1.1; Warfarin Therap eutic range 2.0 to 3. 0 or 2.5 to 3.5, dep ending upon the indica tions. Lab Interpretation (test Normal code = 71198-4) [facility] (91133[facility] (ALB,T.PRO,BILI T,BU/BC,ALT,AST,ALK PHOS)2022-02-15 04:40:15 Test Item Value Reference Range Interpretation Comments TOTAL BILI (test code = 2628750104) 0.9 mg/dL 0.1-1.1 BILI UNCON (test code = 1728084561) 0.3 mg/dL 0.1-1.1 BILI CONJ (test code = 4652848330) 0.0 mg/dL 0-0.3 T PROTEIN (test code = 2088478686) 7.5 g/dL 6.3-8.2 ALBUMIN (test code = 2112439577) 4.0 g/dL 3.5-5 ALK PHOS (test code = 3471923602) 166 U/L 34-122 H ALTv (test code = 1742-6) 28 U/L 5-50 AST(SGOT) (test code = 5623209507) 22 U/L 13-40 Lab Interpretation (test code = Abnormal 98334-5) [facility] CenterHEP[facility] FUN[facility] PAN[facility] (46514) (ALB,T.PRO,BILI T,BU/BC,ALT,AST,ALK PHOS)2022-02-15 04:40:15 Test Item Value Reference Range Interpretation Comments TOTAL BILI (test code = 4669264631) 0.9 mg/dL 0.1-1.1 BILI UNCON (test code = 5732191699) 0.3 mg/dL 0.1-1.1 BILI CONJ (test code = 8437691480) 0.0 mg/dL 0-0.3 T PROTEIN (test code = 3753628903) 7.5 g/dL 6.3-8.2 ALBUMIN (test code = 5815264624) 4.0 g/dL 3.5-5 ALK PHOS (test code = 1664259187) 166 U/L 34-122 H ALTv (test code = 1742-6) 28 U/L 5-50 AST(SGOT) (test code = 3389201316) 22 U/L 13-40 Lab Interpretation (test code = Abnormal 50470-7) [facility] (24919) (ALB,T.PRO,BILI T,BU/BC,ALT,AST,ALK PHOS)2022-02-15 04:40:15 Test Item Value Reference Range Interpretation Comments TOTAL BILI (test code = 6637876386) 0.9 mg/dL 0.1-1.1 BILI UNCON (test code = 8738591829) 0.3 mg/dL 0.1-1.1 BILI CONJ (test code = 8743136083) 0.0 mg/dL 0-0.3 T PROTEIN (test code = 0896356823) 7.5 g/dL 6.3-8.2 ALBUMIN (test code = 4509951203) 4.0 g/dL 3.5-5 ALK PHOS (test code = 3263684984) 166 U/L 34-122 H ALTv (test code = 1742-6) 28 U/L 5-50 AST(SGOT) (test code = 3981794327) 22 U/L 13-40 Lab Interpretation (test code = Abnormal 33547-6) [facility] 04:40:00 Test Item Value Reference Range Interpretation Comments LIPASE (test code = 2212542027) 239 U/L 0-220 H Lab Interpretation (test code = Abnormal 23676-2) [facility] 04:40:00 Test Item Value Reference Range Interpretation Comments LIPASE (test code = 1362992780) 239 U/L 0-220 H Lab Interpretation (test code = Abnormal 60691-8) [facility] 04:40:00 Test Item Value Reference Range Interpretation Comments LIPASE (test code = 5632009141) 239 U/L 0-220 H Lab Interpretation (test code = Abnormal 85542-6) [id number] 02:01:26 Test Item Value Reference Range Interpretation Comments Blood Culture-Aerobic No organisms No growth Previo us (test code = 77933-1) isolated prelim inary verified result was Culture [...] Culture-Anaerobic isolated preliminar y (test code = 16674-0) verifi ed result was Culture In Progress [...] CDT Lab Interpretation Normal (test code = 46744-2) [facility] GLUCOSE (AUTOMATED)2022-02-10 19:39:16 Test Item Value Reference Range Interpretation Comments POCT GLU (test code = 3558493036) 153 mg/dL 70-110 H Lab Interpretation (test code = Abnormal 97930-3) [facility] GLUCOSE (AUTOMATED)2022-02-10 16:42:59 Test Item Value Reference Range Interpretation Comments POCT GLU (test code = 6809967921) 311 mg/dL 70-110 H Lab Interpretation (test code = Abnormal 77215-0) [facility] GLUCOSE (AUTOMATED)2022-02-10 01:48:17 Test Item Value Reference Range Interpretation Comments POCT GLU (test code = 8042532068) 253 mg/dL 70-110 H Lab Interpretation (test code = Abnormal 63581-3) [facility] GLUCOSE (AUTOMATED)2022-02-09 21:48:07 Test Item Value Reference Range Interpretation Comments POCT GLU (test code = 8847422806) 279 mg/dL 70-110 H Lab Interpretation (test code = Abnormal 68039-8) [facility] GLUCOSE (AUTOMATED)2022-02-09 16:48:09 Test Item Value Reference Range Interpretation Comments POCT GLU (test code = 3474000913) 275 mg/dL 70-110 H Lab Interpretation (test code = Abnormal 60436-8) [facility] METABOLIC PANEL (NA, K, CL, CO2, GLUCOSE, BUN, CREATININE, CA)2022-02-09 15:41:54 Test Item Value Reference Range Interpretation Comments NA (test code = 148 mmol/L 135-145 H 3898371985) K (test code = 4.3 mmol/L 3.5-5 7976904124) CL (test code = 123 mmol/L 98-108 H 8952531095) CO2 TOTAL (test code = 19 mmol/L 23-31 L 8507784460) AGAP (test code = 2-16 2273408962) BUN (test code = 23 mg/dL 7-23 1163842163) GLUCOSE (test code = 305 mg/dL 70-110 H 9552773386) CREATININE (test code = 0.61 mg/dL 0.6-1.25 3326823321) CALCIUM (test code = 8.5 mg/dL 8.6-10.6 L 3175922366) eGFR (test code = mL/min/1.73m2 7889900771) ARPITA (test code = ARPITA) Association of [...] tests). Lab Interpretation Abnormal (test code = 66920-9) [facility]MAGN[facility]IUM2022-[facility]-29 15:17:07 Test Item Value Reference Range Interpretation Comments MAGNESIUM (test code = 0714943699) 1.8 mg/dL 1.7-2.4 Lab Interpretation (test code = Normal 50409-6) [facility]PHOSPHORUS2022-07-29 15:17:07 Test Item Value Reference Range Interpretation Comments PHOSPHORUS (test code = 8417218872) 2.2 mg/dL 2.5-5 L Lab Interpretation (test code = Abnormal 58090-2) [facility]2022-02-09 12:48:51 Test Item Value Reference Range Interpretation Comments POCT GLU (test code = 3103075309) 274 mg/dL 70-110 H Lab Interpretation (test code = Abnormal 46476-8) [facility] GLUCOSE (AUTOMATED)2022-02-09 01:10:30 Test Item Value Reference Range Interpretation Comments POCT GLU (test code = 1124539171) 248 mg/dL 70-110 H Lab Interpretation (test code = Abnormal 21201-2) [facility] GLUCOSE (AUTOMATED)2022-02-09 01:10:30 Test Item Value Reference Range Interpretation Comments POCT GLU (test code = 0295865750) 300 mg/dL 70-110 H Lab Interpretation (test code = Abnormal 22706-1) [facility] GLUCOSE (AUTOMATED)2022-02-08 16:52:44 Test Item Value Reference Range Interpretation Comments POCT GLU (test code = 3758743823) 296 mg/dL 70-110 H Lab Interpretation (test code = Abnormal 20071-2) [facility] GLUCOSE (AUTOMATED)2022-02-08 16:52:43 Test Item Value Reference Range Interpretation Comments POCT GLU (test code = 5836292611) 345 mg/dL 70-110 H Lab Interpretation (test code = Abnormal 39314-7) [facility] GLUCOSE (AUTOMATED)2022-02-08 16:52:38 Test Item Value Reference Range Interpretation Comments POCT GLU (test code = 8386875937) 363 mg/dL 70-110 H Lab Interpretation (test code = Abnormal 41132-7) [facility] GLUCOSE (AUTOMATED)2022-02-08 16:52:38 Test Item Value Reference Range Interpretation Comments POCT GLU (test code = 9716014801) 444 mg/dL 70-110 H Lab Interpretation (test code = Abnormal 49629-7) [facility] GLUCOSE (AUTOMATED)2022-02-08 16:52:38 Test Item Value Reference Range Interpretation Comments POCT GLU (test code = 9453923617) 324 mg/dL 70-110 H Lab Interpretation (test code = Abnormal 60639-9) [facility] GLUCOSE (AUTOMATED)2022-02-08 16:52:38 Test Item Value Reference Range Interpretation Comments POCT GLU (test code = 5886878960) 303 mg/dL 70-110 H Lab Interpretation (test code = Abnormal 87033-6) [facility] GLUCOSE (AUTOMATED)2022-02-08 16:52:38 Test Item Value Reference Range Interpretation Comments POCT GLU (test code = 7689798646) 288 mg/dL 70-110 H Lab Interpretation (test code = Abnormal 66021-2) [facility] GLUCOSE (AUTOMATED)2022-02-08 16:37:12 Test Item Value Reference Range Interpretation Comments POCT GLU (test code = 1268771833) 241 mg/dL 70-110 H Lab Interpretation (test code = Abnormal 25394-4) [facility] GLUCOSE (AUTOMATED)2022-02-08 13:14:11 Test Item Value Reference Range Interpretation Comments POCT GLU (test code = 5616437345) 264 mg/dL 70-110 H Lab Interpretation (test code = Abnormal 03319-8) [facility] GLUCOSE (AUTOMATED)2022-02-08 11:04:52 Test Item Value Reference Range Interpretation Comments POCT GLU (test code = 4674794707) 257 mg/dL 70-110 H Lab Interpretation (test code = Abnormal 13384-2) [facility] GLUCOSE (AUTOMATED)2022-02-08 07:51:27 Test Item Value Reference Range Interpretation Comments POCT GLU (test code = 7649277579) 228 mg/dL 70-110 H Lab Interpretation (test code = Abnormal 50963-8) [facility] GLUCOSE (AUTOMATED)2022-02-08 03:43:14 Test Item Value Reference Range Interpretation Comments POCT GLU (test code = 8714408256) 269 mg/dL 70-110 H Lab Interpretation (test code = Abnormal 36355-0) [facility] GLUCOSE (AUTOMATED)2022-02-08 00:53:27 Test Item Value Reference Range Interpretation Comments POCT GLU (test code = 6315300321) 342 mg/dL 70-110 H Lab Interpretation (test code = Abnormal 29998-1) [facility] Metabolic Panel (Na, K, Cl, CO2, Glucose, BUN, Creatinine, Ca)2022-02-08 00:26:35 Test Item Value Reference Range Interpretation Comments NA (test code = 161 mmol/L 135-145 HH 0685452896) K (test code = 5.3 mmol/L 3.5-5 H 7741685615) CL (test code = 131 mmol/L 98-108 H 2329644564) CO2 TOTAL (test code = 14 mmol/L 23-31 L 3576591401) AGAP (test code = 2-16 5102100754) BUN (test code = 40 mg/dL 7-23 H 6716900448) GLUCOSE (test code = 363 mg/dL 70-110 H 5946042084) CREATININE (test code = 1.31 mg/dL 0.6-1.25 H 7685560492) CALCIUM (test code = 9.0 mg/dL 8.6-10.6 2418589915) eGFR (test code = mL/min/1.73m2 9557539921) ARPITA (test code = ARPITA) Association of [...] tests). Lab Interpretation Abnormal (test code = 77609-6) [facility] GLUCOSE (AUTOMATED)2022-02-07 22:31:31 Test Item Value Reference Range Interpretation Comments POCT GLU (test code = 6501086931) 349 mg/dL 70-110 H Lab Interpretation (test code = Abnormal 49518-8) [facility] GLUCOSE (AUTOMATED)2022-02-07 20:57:05 Test Item Value Reference Range Interpretation Comments POCT GLU (test code = 1992831505) 70-110 HH Lab Interpretation (test code = Abnormal 86912-3) [facility] GLUCOSE (AUTOMATED)2022-02-07 20:57:00 Test Item Value Reference Range Interpretation Comments POCT GLU (test code = 3150906147) 70-110 HH Lab Interpretation (test code = Abnormal 81009-2) [facility] GLUCOSE (AUTOMATED)2022-02-07 20:57:00 Test Item Value Reference Range Interpretation Comments POCT GLU (test code = 1101650678) 70-110 HH Lab Interpretation (test code = Abnormal 33417-9) [facility] GLUCOSE (AUTOMATED)2022-02-07 20:57:00 Test Item Value Reference Range Interpretation Comments POCT GLU (test code = 4005489580) 70-110 HH Lab Interpretation (test code = Abnormal 69564-6) [facility] CenterLariic Acid Whole [id number] 12:58:42 Test Item Value Reference Range Interpretation Comments LACTIC ACID (test code = 4.32 mmol/L 0.5-2.2 H 8059771470) Lab Interpretation (test code = Abnormal 53207-1) [facility] CenterPhosphorus [id number] 03:51:48 Test Item Value Reference Range Interpretation Comments PHOSPHORUS (test code = 6.7 mg/dL 2.5-5 H Slig ht hemolysis 3911598032) Lab Interpretation (test Abnormal code = 62845-8) [facility] CenterMagnesium Ogisw9712-09-62 03:51:48 Test Item Value Reference Range Interpretation Comments MAGNESIUM (test code = 3638252751) 2.8 mg/dL 1.7-2.4 H Lab Interpretation (test code = Abnormal 34901-4) [facility] CenterCOMP. METABOLIC PANEL (77425)2022-02-07 02:16:52 Test Item Value Reference Range Interpretation Comments NA (test code = 166 mmol/L 135-145 HH 6284013049) K (test code = 5.2 mmol/L 3.5-5 H 1748759716) CL (test code = 123 mmol/L 98-108 H 5493767317) CO2 TOTAL (test code = 12 mmol/L 23-31 L 6268262217) AGAP (test code = 2-16 H 5258000827) BUN (test code = 35 mg/dL 7-23 H 7512698601) GLUCOSE (test code = 941 mg/dL 70-110 HH 4771811113) CREATININE (test code = 1.51 mg/dL 0.6-1.25 H 3626960057) TOTAL BILI (test code = 1.1 mg/dL 0.1-1.9 2879953070) CALCIUM (test code = 10.7 mg/dL 8.6-10.6 H 1552870897) T PROTEIN (test code = 8.2 g/dL 6.3-8.2 3068855419) ALBUMIN (test code = 4.5 g/dL 3.5-5 5958826390) ALK PHOS (test code = 201 U/L 34-122 H 4189682989) ALTv (test code = 43 U/L 5-50 1742-6) AST(SGOT) (test code = 27 U/L 13-40 3703228534) eGFR (test code = mL/min/1.73m2 8591182505) ARPITA (test code = ARPITA) Association of [...] tests). Lab Interpretation Abnormal (test code = 24983-1) [facility] CenterTROPONIN [id number] 02:12:40 Test Item Value Reference Interpretation Comments Range TROPONIN I (test 0.005 ng/mL See_Comment [Automated code = 9818637277) message] The system which generated this result [...] biotin. Lab Interpretation Normal (test code = 89859-5) [facility] CenterSALICYLATE2022-[facility]-27 02:06:11 SALICYLATE<10mg/L02/06/2022 9:06 PM [facility]Therapeutic Range: ? Analgesic and Antipyretic Use ? 20- 100 mg/L ? ? Anti-Inflammatory Use ? 100-250 mg/L Toxic Range: ? Greater than 300 mg/LUnChildren[facility] Hospital of San AntonioSALICYLATE2022-07-27 02:06:11SALICYLATE<10mg/L02/06/2022 9:06 PM [facility]Therapeutic Range: ? Analgesic and Antipyretic Use ? 20-100 mg/L ? ? Anti-Inflammatory Use ? 100-250 mg/L Toxic Range: ? Greater than 300 mg/L [facility] CenterETHANOL2022-07-27 02:05:51 ALCOHOL<10mg/dL02/06/2022 9:05 PM [facility]<10 Pltqyzuk05-413 Toxic>100 Depression of HAT MARKER>400 Fatal[facility]UnBell[facility]2022-[facility]-27 02:05:51 ALCOHOL<10mg/dL02/06/2022 9:05 PM [facility]<10 Ikdqkiro33-805 Toxic>100 Depression of HAT MARKER>400 Fatalities ReportedUnChildren's Hospital of San AntonioACETAMINOPHEN2022-07-27 02:03:04 Test Item Value Reference Range Interpretation Comments ACETAMINOP (test code = 10-30 L 5451918432) ARPITA (test code = ARPITA) Toxic: Greater than 200 ug/mL @ 4 hour post ingestion or greater than 50 ug/mL @ 12 hour post ingestion Lab Interpretation (test Abnormal code = 05542-3) [facility] CenterACETAMINOPHEN2022-07-27 02:03:04 Test Item Value Reference Range Interpretation Comments ACETAMINOP (test code = 10-30 L 5890902240) ARPITA (test code = ARPITA) Toxic: Greater than 200 ug/mL @ 4 hour post ingestion or greater than 50 ug/mL @ 12 hour post ingestion Lab Interpretation (test Abnormal code = 05947-6) [facility] CenterL[facility]2022-[facility] 02:01:02 Test Item Value Reference Range Interpretation Comments LIPASE (test code = 7694860606) 246 U/L 0-220 H Lab Interpretation (test code = Abnormal 84318-0) [facility] CenterCB WITH [id number] 01:12:41 Test Item Value Reference Range Interpretation [...] RDW-SD (test code = 50.8 fL 38.5-51.6 61658-2) RDW-CV (test code = 16.4 % 12.1-15.4 H 788-0) PLT (test code = See_Comment H [Automated 777-3) message] The system which generated this result transmit lester reference range : 150 - 328 10*3/ ?L. The reference range was not u sed to interpret th is result as normal/abnormal . MPV (test code = 11.6 fL 9.8-13 56947-7) NRBC/100 WBC (test See_Comment [Automat ed code = 9058486712) message] The system which generated this result transmit lester reference range : 0.0 - 10.0 /100 WBCs. The reference range was not used to interpret this result as normal/abnormal . NRBC x10^3 (test code See_Comment [Auto mated = 2746789357) message] The system which generated this result transmit lester reference range : 10*3/?L. The reference range was not used to interpret this result as normal/abnormal . SEG % (test code = 77 % 33-76 H 60466-4) BAND % (test code = 9 % 0-1 H 47180-1) LYMPH % (test code = 7 % 14-54 L 45848-0) MONO % (test code = 7 % 0-4 H 87751-4) ANC (test code = 15.98 10*3/uL 1.99-6.95 H 753-4) ALBERT CELLS (test code 2+ See_Comment A [Auto mated = 6390-9) message] The system which generated this result transmit lester reference range : (none). The reference range was not used to interpret this result as normal/abnormal . Lab Interpretation Abnormal (test code = 37502-5) [facility] GLUCOSE (AUTOMATED)2022-01-27 01:30:22 Test Item Value Reference Range Interpretation Comments POCT GLU (test code = 9704868699) 392 mg/dL 70-110 H Lab Interpretation (test code = Abnormal 34102-7) [facility] GLUCOSE(AGE >30DAYS)2022-01-27 01:30:00 Test Item Value Reference Range Interpretation Comments POCT Glu (age>30days) 392 mg/dL, 70-110 (test code = 3342) informed Lab Interpretation (test Normal code = 09854-6) [facility] GLUCOSE (AUTOMATED)2022-01-27 00:43:22 Test Item Value Reference Range Interpretation Comments POCT GLU (test code = 4399263422) 430 mg/dL 70-110 H Lab Interpretation (test code = Abnormal 80826-5) [facility] GLUCOSE (AUTOMATED)2022-01-26 23:29:00 Test Item Value Reference Range Interpretation Comments POCT GLU (test code = 7919993451) 493 mg/dL 70-110 HH Lab Interpretation (test code = Abnormal 56004-3) [facility] METABOLIC PANEL (NA, K, CL, CO2, GLUCOSE, BUN, CREATININE, CA)2022-01-26 22:56:10 Test Item Value Reference Range Interpretation Comments NA (test code = 132 mmol/L 135-145 L 9597966288) K (test code = 4.4 mmol/L 3.5-5 7825885510) CL (test code = 98 mmol/L 98-108 4100189359) CO2 TOTAL (test code = 19 mmol/L 23-31 L 7601544168) AGAP (test code = 2-16 5579795090) BUN (test code = 11 mg/dL 7- 2821279287) GLUCOSE (test code = 519 mg/dL 70-110 HH 2031335651) CREATININE (test code = 0.55 mg/dL 0.6-1.25 L 1684913184) CALCIUM (test code = 9.5 mg/dL 8.6-10.6 0910897004) eGFR (test code = mL/min/1.73m2 6999644149) ARPITA (test code = ARPITA) Association of [...] tests). Lab Interpretation Abnormal (test code = 18533-0) [facility] WITH [id number] 22:45:19 Test Item Value Reference Range Interpretation Comments WBC (test code = See_Comment [Automated 3190-2) message] The sy stem which generated this [...] RDW-SD (test code = 41.7 fL 38.5-51.6 40551-0) RDW-CV (test code = 13.6 % 12.1-15.4 788-0) PLT (test code = See_Comment H [Automated 777-3) message] The sy stem which generated this result transmitted reference range : 150 - 328 10*3/ ?L. The reference r boubacar was not used to interpret this result as normal/abnormal . MPV (test code = 10.6 fL 9.8-13 93204-1) NRBC/100 WBC (test See_Comment [Automat ed code = 3738891914) message] The system which generated this result transmitted reference range : 0.0 - 10.0 /100 WBCs. The refer ence range was not u sed to interpret th is result as normal/abnormal . NRBC x10^3 (test code See_Comment [Auto mated = 7495920608) message] The s ystem which generated this result transmitted reference range : 10*3/?L. The reference range was not used to interpret this result as normal/abnormal . GRAN MAT (NEUT) % 66.6 % (test code = 770-8) IMM GRAN % (test code 0.40 % = 8382262820) LYMPH % (test code = 20.5 % 736-9) MONO % (test code = 10.9 % 5905-5) EOS % (test code = 1.5 % 713-8) BASO % (test code = 0.1 % 706-2) GRAN MAT x10^3(ANC) 4.88 10*3/uL 1.99-6.95 (test code = 9582727323) IMM GRAN x10^3 (test 0.03 10*3/uL 0-0.06 code = 3318034219) LYMPH x10^3 (test code 1.50 10*3/uL 1.09-3.23 = 731-0) MONO x10^3 (test code 0.80 10*3/uL 0.36-1.02 = 742-7) EOS x10^3 (test code = 0.11 10*3/uL 0.06-0.53 711-2) BASO x10^3 (test code 0.01-0.09 = 704-7) Lab Interpretation Abnormal (test code = 02409-3) [facility] WITH [id number] 11:05:43 Test Item Value Reference Range Interpretation Comments WBC (test code = See_Comment H [Automated 8590-2) message] The sy stem which generated this result transmitted reference range : 4.20 - 10.70 10*3/?L. The reference range was not used to interpret this result as normal/abnormal . RBC (test code = See_Comment [Automated 109-8) message] The sy stem which generated this [...] RDW-SD (test code = 41.7 fL 38.5-51.6 21282-3) RDW-CV (test code = 13.4 % 12.1-15.4 788-0) PLT (test code = See_Comment H [Automated 777-3) message] The sy stem which generated this result transmitted reference range : 150 - 328 10*3/ ?L. The reference r boubacar was not used to interpret this result as normal/abnormal . MPV (test code = 10.3 fL 9.8-13.0 67676-2) NRBC/100 WBC (test See_Comment [Automat ed code = 5458363142) message] The system which generated this result transmitted reference range : 0.0 - 10.0 /100 WBCs. The refer ence range was not u sed to interpret th is result as normal/abnormal . NRBC x10^3 (test code <0.01 See_Comment [Auto mated = 1104780271) message] The s ystem which generated this result transmitted reference range : 10*3/?L. The reference range was not used to interpret this result as normal/abnormal . GRAN MAT (NEUT) % 71.2 % (test code = 770-8) IMM GRAN % (test code 1.30 % = 3428588535) LYMPH % (test code = 18.2 % 736-9) MONO % (test code = 7.1 % 5905-5) EOS % (test code = 1.9 % 713-8) BASO % (test code = 0.3 % 706-2) GRAN MAT x10^3(ANC) 8.37 10*3/uL 1.99-6.95 H (test code = 1225381055) IMM GRAN x10^3 (test 0.15 10*3/uL 0.00-0.06 H code = 3948010747) LYMPH x10^3 (test code 2.14 10*3/uL 1.09-3.23 = 731-0) MONO x10^3 (test code 0.84 10*3/uL 0.36-1.02 = 742-7) EOS x10^3 (test code = 0.22 10*3/uL 0.06-0.53 711-2) BASO x10^3 (test code 0.04 10*3/uL 0.01-0.09 = 704-7) Lab Interpretation Abnormal (test code = 87726-4) [facility]. METABOLIC PANEL ([id number])2022-01-17 11:03:21 Test Item Value Reference Range Interpretation Comments NA (test code = 133 mmol/L 135-145 L 4857934970) K (test code = 4.3 mmol/L 3.5-5.0 3529188589) CL (test code = 99 mmol/L 98-108 0081419556) CO2 TOTAL (test code = 20 mmol/L 23-31 L 1146030011) AGAP (test code = 2-16 3486760536) BUN (test code = 11 mg/dL 7-23 2773552128) GLUCOSE (test code = 357 mg/dL 70-110 H 3483684394) CREATININE (test code = 0.52 mg/dL 0.60-1.25 L 7644052243) TOTAL BILI (test code = 0.7 mg/dL 0.1-1.2 1024005151) CALCIUM (test code = 9.6 mg/dL 8.6-10.6 7126481712) T PROTEIN (test code = 7.5 g/dL 6.3-8.2 7248872152) ALBUMIN (test code = 4.2 g/dL 3.5-5.0 3044368854) ALK PHOS (test code = 185 U/L 34-122 H 5209862022) ALTv (test code = 78 U/L 5-50 H 1742-6) AST(SGOT) (test code = 18 U/L 13-40 4672885916) eGFR (test code = mL/min/1.73m2 9480396511) ARPITA (test code = ARPITA) Association of [...] tests). Lab Interpretation Abnormal (test code = 15717-1) [facility] Test Item Value Reference Range Interpretation Comments LIPASE (test code = 8376967849) 63 U/L 0-220 Lab Interpretation (test code = Normal 81711-0) [facility] GLUCOSE (AUTOMATED)2022-01-12 22:54:04 Test Item Value Reference Range Interpretation Comments POCT GLU (test code = 5916765991) 361 mg/dL 70-110 H Lab Interpretation (test code = Abnormal 34007-6) [facility] GLUCOSE (AUTOMATED)2022-01-12 12:19:07 Test Item Value Reference Range Interpretation Comments POCT GLU (test code = 2563066721) 390 mg/dL 70-110 H Lab Interpretation (test code = Abnormal 75102-8) [facility] GLUCOSE (AUTOMATED)2022-01-12 04:48:35 Test Item Value Reference Range Interpretation Comments POCT GLU (test code = 9799220007) 412 mg/dL 70-110 H Lab Interpretation (test code = Abnormal 82926-2) [facility] GLUCOSE (AUTOMATED)2022-01-12 01:44:33 Test Item Value Reference Range Interpretation Comments POCT GLU (test code = 6230971738) 376 mg/dL 70-110 H Lab Interpretation (test code = Abnormal 19871-0) [facility] GLUCOSE (AUTOMATED)2022-01-11 21:51:37 Test Item Value Reference Range Interpretation Comments POCT GLU (test code = 9067780878) 267 mg/dL 70-110 H Lab Interpretation (test code = Abnormal 20783-0) [facility] GLUCOSE (AUTOMATED)2022-01-11 17:05:21 Test Item Value Reference Range Interpretation Comments POCT GLU (test code = 9719817122) 377 mg/dL 70-110 H Lab Interpretation (test code = Abnormal 19887-3) [facility] GLUCOSE (AUTOMATED)2022-01-11 13:10:54 Test Item Value Reference Range Interpretation Comments POCT GLU (test code = 3184202169) 495 mg/dL 70-110 HH Lab Interpretation (test code = Abnormal 38435-5) [facility] GLUCOSE (AUTOMATED)2022-01-11 08:34:04 Test Item Value Reference Range Interpretation Comments POCT GLU (test code = 5879312815) 427 mg/dL 70-110 H Lab Interpretation (test code = Abnormal 54457-3) [facility] GLUCOSE (AUTOMATED)2022-01-11 05:46:02 Test Item Value Reference Range Interpretation Comments POCT GLU (test code = 2716827775) 451 mg/dL 70-110 HH Lab Interpretation (test code = Abnormal 29535-2) [facility] GLUCOSE (AUTOMATED)2022-01-11 02:44:38 Test Item Value Reference Range Interpretation Comments POCT GLU (test code = 3128693309) 429 mg/dL 70-110 H Lab Interpretation (test code = Abnormal 66350-1) [facility] GLUCOSE (AUTOMATED)2022-01-10 22:38:24 Test Item Value Reference Range Interpretation Comments POCT GLU (test code = 2868526857) 404 mg/dL 70-110 H Lab Interpretation (test code = Abnormal 37659-5) [facility] GLUCOSE (AUTOMATED)2022-01-10 18:05:20 Test Item Value Reference Range Interpretation Comments POCT GLU (test code = 9638138195) 423 mg/dL 70-110 H Lab Interpretation (test code = Abnormal 69268-4) [facility] METABOLIC PANEL (NA, K, CL, CO2, GLUCOSE, BUN, CREATININE, CA)2022-01-10 14:56:25 Test Item Value Reference Range Interpretation Comments NA (test code = 135 mmol/L 135-145 9464617784) K (test code = 4.0 mmol/L 3.5-5.0 2265750433) CL (test code = 102 mmol/L 98-108 4566552238) CO2 TOTAL (test code = 22 mmol/L 23-31 L 5026253603) AGAP (test code = 2-16 6225221272) BUN (test code = 13 mg/dL 7-23 5439638888) GLUCOSE (test code = 547 mg/dL 70-110 HH 8207031830) CREATININE (test code = 0.65 mg/dL 0.60-1.25 2746052919) CALCIUM (test code = 8.6 mg/dL 8.6-10.6 9335473585) eGFR (test code = mL/min/1.73m2 7230886127) ARPITA (test code = ARPITA) Association of [...] tests). Lab Interpretation Abnormal (test code = 38681-2) [facility] GLUCOSE (AUTOMATED)2022-01-10 13:36:27 Test Item Value Reference Range Interpretation Comments POCT GLU (test code = 6146132447) 526 mg/dL 70-110 HH Lab Interpretation (test code = Abnormal 39464-8) [facility] GLUCOSE (AUTOMATED)2022-01-10 12:52:44 Test Item Value Reference Range Interpretation Comments POCT GLU (test code = 9022106654) >600 70-110 HH Lab Interpretation (test code = Abnormal 23212-0) [facility] GLUCOSE (AUTOMATED)2022-01-10 12:52:44 Test Item Value Reference Range Interpretation Comments POCT GLU (test code = 9546165454) >600 70-110 HH Lab Interpretation (test code = Abnormal 46774-3) [facility] GLUCOSE (AUTOMATED)2022-01-10 11:02:02 Test Item Value Reference Range Interpretation Comments POCT GLU (test code = 8893853013) 521 mg/dL 70-110 HH Lab Interpretation (test code = Abnormal 78947-7) [facility] GLUCOSE (AUTOMATED)2022-01-10 07:22:18 Test Item Value Reference Range Interpretation Comments POCT GLU (test code = 0887970971) 534 mg/dL 70-110 HH Lab Interpretation (test code = Abnormal 49924-6) [facility] METABOLIC PANEL (NA, K, CL, CO2, GLUCOSE, BUN, CREATININE, CA)2022-01-10 06:34:51 Test Item Value Reference Range Interpretation Comments NA (test code = 133 mmol/L 135-145 L 3928486104) K (test code = 4.9 mmol/L 3.5-5.0 Slight 6365110087) hemolysis CL (test code = 96 mmol/L 98-108 L 7736686743) CO2 TOTAL (test code 21 mmol/L 23-31 L = 0025894551) AGAP (test code = 2-16 8983233794) BUN (test code = 12 mg/dL 7-23 Slight 9934052429) hemolysis GLUCOSE (test code = 639 mg/dL 70-110 HH 8933566660) CREATININE (test code 0.46 mg/dL 0.60-1.25 L = 9932325016) CALCIUM (test code = 9.7 mg/dL 8.6-10.6 4838666494) eGFR (test code = mL/min/1.73m2 1838842190) ARPITA (test code = ARPITA) Association of [...] tests). Lab Interpretation Abnormal (test code = 78891-4) [facility]. METABOLIC PANEL (00950)2022-01-10 02:59:57 Test Item Value Reference Range Interpretation Comments NA (test code = 126 mmol/L 135-145 L 0606792941) K (test code = 5.2 mmol/L 3.5-5.0 H 9184545162) CL (test code = 89 mmol/L 98-108 L 9158350417) CO2 TOTAL (test code = 20 mmol/L 23-31 L 3882104952) AGAP (test code = 2-16 H 4446481451) BUN (test code = 12 mg/dL 7-23 3869752686) GLUCOSE (test code = 856 mg/dL 70-110 HH 7611791349) CREATININE (test code = 0.49 mg/dL 0.60-1.25 L 0416189270) TOTAL BILI (test code = 0.7 mg/dL 0.1-1.0 0053362781) CALCIUM (test code = 10.2 mg/dL 8.6-10.6 7379555985) T PROTEIN (test code = 8.2 g/dL 6.3-8.2 4059099116) ALBUMIN (test code = 4.5 g/dL 3.5-5.0 4997560279) ALK PHOS (test code = 186 U/L 34-122 H 2024850157) ALTv (test code = 27 U/L 5-50 2-6) AST(SGOT) (test code = 18 U/L 13-40 6495594076) eGFR (test code = mL/min/1.73m2 7454766886) ARPITA (test code = ARPITA) Association of [...] tests). Lab Interpretation Abnormal (test code = 81689-5) [facility] Test Item Value Reference Range Interpretation Comments LIPASE (test code = 6273311015) 146 U/L 0-220 Lab Interpretation (test code = Normal 13863-5) [facility] [id number] 02:34:07 Test Item Value Reference Range Interpretation [...] RDW-SD (test code = 42.0 fL 38.5-51.6 05229-1) RDW-CV (test code = 13.5 % 12.1-15.4 788-0) PLT (test code = See_Comment H [Automated 777-3) message] The sy stem which generated this result transmitted reference range : 150 - 328 10*3/ ?L. The reference r boubacar was not used to interpret this result as normal/abnormal . MPV (test code = 10.5 fL 9.8-13.0 75707-1) NRBC/100 WBC (test See_Comment [Automat ed code = 1429946341) message] The system which generated this result transmitted reference range : 0.0 - 10.0 /100 WBCs. The refer ence range was not u sed to interpret th is result as normal/abnormal . NRBC x10^3 (test code <0.01 See_Comment [Auto mated = 8876941953) message] The s ystem which generated this result transmitted reference range : 10*3/?L. The reference range was not used to interpret this result as normal/abnormal . GRAN MAT (NEUT) % 67.5 % (test code = 770-8) IMM GRAN % (test code 0.70 % = 6509737247) LYMPH % (test code = 21.7 % 736-9) MONO % (test code = 8.4 % 5905-5) EOS % (test code = 1.3 % 713-8) BASO % (test code = 0.4 % 706-2) GRAN MAT x10^3(ANC) 6.61 10*3/uL 1.99-6.95 (test code = 1892929585) IMM GRAN x10^3 (test 0.07 10*3/uL 0.00-0.06 H code = 6328390263) LYMPH x10^3 (test code 2.12 10*3/uL 1.09-3.23 = 731-0) MONO x10^3 (test code 0.82 10*3/uL 0.36-1.02 = 742-7) EOS x10^3 (test code = 0.13 10*3/uL 0.06-0.53 711-2) BASO x10^3 (test code 0.04 10*3/uL 0.01-0.09 = 704-7) Lab Interpretation Abnormal (test code = 19911-9) [facility] (ALB,T.PRO,BILI T,BU/BC,ALT,AST,ALK PHOS)2022-01-06 13:57:09 Test Item Value Reference Range Interpretation Comments TOTAL BILI (test code = 4272448660) 0.7 mg/dL 0.1-1.1 BILI UNCON (test code = 8526165928) 0.3 mg/dL 0.1-1.1 BILI CONJ (test code = 3626019479) 0.0 mg/dL 0.0-0.3 T PROTEIN (test code = 8842177075) 7.5 g/dL 6.3-8.2 ALBUMIN (test code = 1992206937) 3.8 g/dL 3.5-5.0 ALK PHOS (test code = 7595983434) 161 U/L 34-122 H ALTv (test code = 1742-6) 44 U/L 5-50 AST(SGOT) (test code = 9658750494) 47 U/L 13-40 H Lab Interpretation (test code = Abnormal 93855-6) [facility] METABOLIC PANEL (NA, K, CL, CO2, GLUCOSE, BUN, CREATININE, CA)2022-01-06 10:48:59 Test Item Value Reference Range Interpretation Comments NA (test code = 136 mmol/L 135-145 1960881314) K (test code = 3.8 mmol/L 3.5-5.0 8137003582) CL (test code = 101 mmol/L 98-108 2499992976) CO2 TOTAL (test code = 22 mmol/L 23-31 L 5505597634) AGAP (test code = 2-16 3705582937) BUN (test code = 16 mg/dL 7-23 1597014060) GLUCOSE (test code = 358 mg/dL 70-110 H 9931411220) CREATININE (test code = 0.63 mg/dL 0.60-1.25 3517764632) CALCIUM (test code = 9.2 mg/dL 8.6-10.6 9739524011) eGFR (test code = mL/min/1.73m2 3203880017) ARPITA (test code = ARPITA) Association of [...] tests). Lab Interpretation Abnormal (test code = 47400-7) [facility] WITH [id number] 10:01:35 Test Item Value Reference Range Interpretation Comments WBC (test code = See_Comment [Automated 1435-2) message] The sy stem which generated this result transmitted reference range : 4.20 - 10.70 10*3/?L. The reference range was not used to interpret this result as normal/abnormal . RBC (test code = See_Comment [Automated 336-8) message] The sy stem which generated this [...] RDW-SD (test code = 41.6 fL 38.5-51.6 57196-4) RDW-CV (test code = 13.4 % 12.1-15.4 788-0) PLT (test code = See_Comment H [Automated 214-3) message] The sy stem which generated this result transmitted reference range : 150 - 328 10*3/ ?L. The reference r boubacar was not used to interpret this result as normal/abnormal . MPV (test code = 11.0 fL 9.8-13.0 66395-3) NRBC/100 WBC (test See_Comment [Automat ed code = 6249107244) message] The system which generated this result transmitted reference range : 0.0 - 10.0 /100 WBCs. The refer ence range was not u sed to interpret th is result as normal/abnormal . NRBC x10^3 (test code <0.01 See_Comment [Auto mated = 7671165955) message] The s ystem which generated this result transmitted reference range : 10*3/?L. The reference range was not used to interpret this result as normal/abnormal . GRAN MAT (NEUT) % 62.6 % (test code = 770-8) IMM GRAN % (test code 0.40 % = 6610971012) LYMPH % (test code = 23.2 % 736-9) MONO % (test code = 9.6 % 5905-5) EOS % (test code = 3.8 % 713-8) BASO % (test code = 0.4 % 706-2) GRAN MAT x10^3(ANC) 4.76 10*3/uL 1.99-6.95 (test code = 6565319451) IMM GRAN x10^3 (test 0.03 10*3/uL 0.00-0.06 code = 8077152842) LYMPH x10^3 (test code 1.76 10*3/uL 1.09-3.23 = 731-0) MONO x10^3 (test code 0.73 10*3/uL 0.36-1.02 = 742-7) EOS x10^3 (test code = 0.29 10*3/uL 0.06-0.53 711-2) BASO x10^3 (test code 0.03 10*3/uL 0.01-0.09 = 704-7) Lab Interpretation Abnormal (test code = 29330-7) [facility] (52356[facility]-05 04:36:59 Test Item Value Reference Range Interpretation Comments NA (test code = 138 mmol/L 135-145 0639178941) K (test code = 5.4 mmol/L 3.5-5.0 H 1040865932) CL (test code = 98 mmol/L 98-108 0139793528) CO2 TOTAL (test code = 17 mmol/L 23-31 L 1492863681) AGAP (test code = 2-16 H 5117117017) BUN (test code = 19 mg/dL 7-23 4305292558) GLUCOSE (test code = 469 mg/dL 70-110 HH 5646403061) CREATININE (test code = 0.74 mg/dL 0.60-1.25 0893785645) TOTAL BILI (test code = 1.0 mg/dL 0.1-1.4 2478559559) CALCIUM (test code = 10.1 mg/dL 8.6-10.6 7239136352) T PROTEIN (test code = 8.2 g/dL 6.3-8.2 8003828972) ALBUMIN (test code = 4.6 g/dL 3.5-5.0 9375187027) ALK PHOS (test code = 208 U/L 34-122 H 0430102514) ALTv (test code = 51 U/L 5-50 H 1742-6) AST(SGOT) (test code = 18 U/L 13-40 7085051935) eGFR (test code = mL/min/1.73m2 6069296450) ARPITA (test code = ARPITA) Association of [...] tests). Lab Interpretation Abnormal (test code = 52307-9) [facility] 04:29[facility] Test Item Value Reference Range Interpretation Comments LIPASE (test code = 3267571506) 137 U/L 0-220 Lab Interpretation (test code = Normal 68027-9) [facility] WITH [id number] 04:07:59 Test Item Value Reference Range Interpretation Comments WBC (test code = See_Comment H [Automated 6690-2) message] The sy stem which generated this result transmitted reference range : 4.20 - 10.70 10*3/?L. The reference range was not used to interpret this result as normal/abnormal . RBC (test code = See_Comment H [Automated 239-8) message] The sy stem which generated this [...] RDW-SD (test code = 42.6 fL 38.5-51.6 61662-7) RDW-CV (test code = 13.6 % 12.1-15.4 788-0) PLT (test code = See_Comment H [Automated 777-3) message] The sy stem which generated this result transmitted reference range : 150 - 328 10*3/ ?L. The reference r boubacar was not used to interpret this result as normal/abnormal . MPV (test code = 10.7 fL 9.8-13.0 37684-0) NRBC/100 WBC (test See_Comment [Automat ed code = 2178552220) message] The system which generated this result transmitted reference range : 0.0 - 10.0 /100 WBCs. The refer ence range was not u sed to interpret th is result as normal/abnormal . NRBC x10^3 (test code <0.01 See_Comment [Auto mated = 4580383347) message] The s ystem which generated this result transmitted reference range : 10*3/?L. The reference range was not used to interpret this result as normal/abnormal . GRAN MAT (NEUT) % 74.2 % (test code = 770-8) IMM GRAN % (test code 0.50 % = 1836692404) LYMPH % (test code = 14.8 % 736-9) MONO % (test code = 8.3 % 5905-5) EOS % (test code = 1.9 % 713-8) BASO % (test code = 0.3 % 706-2) GRAN MAT x10^3(ANC) 8.01 10*3/uL 1.99-6.95 H (test code = 7953292339) IMM GRAN x10^3 (test 0.05 10*3/uL 0.00-0.06 code = 0840476609) LYMPH x10^3 (test code 1.59 10*3/uL 1.09-3.23 = 731-0) MONO x10^3 (test code 0.89 10*3/uL 0.36-1.02 = 742-7) EOS x10^3 (test code = 0.20 10*3/uL 0.06-0.53 711-2) BASO x10^3 (test code 0.03 10*3/uL 0.01-0.09 = 704-7) Lab Interpretation Abnormal (test code = 59043-2) [facility] GLUCOSE (AUTOMATED)2021-12-22 17:25:00 Test Item Value Reference Range Interpretation Comments POCT GLU (test code = 7233832829) 249 mg/dL 70-110 H Lab Interpretation (test code = Abnormal 09429-3) [facility] GLUCOSE (AUTOMATED)2021-12-22 12:54:01 Test Item Value Reference Range Interpretation Comments POCT GLU (test code = 1153465108) 188 mg/dL 70-110 H Lab Interpretation (test code = Abnormal 22693-0) [facility] METABOLIC PANEL (NA, K, CL, CO2, GLUCOSE, BUN, CREATININE, CA)2021-12-22 11:48:23 Test Item Value Reference Range Interpretation Comments NA (test code = 137 mmol/L 135-145 6652239037) K (test code = 4.3 mmol/L 3.5-5.0 4322767968) CL (test code = 105 mmol/L 98-108 5692029820) CO2 TOTAL (test code = 23 mmol/L 23-31 5690506192) AGAP (test code = 2-16 5197974799) BUN (test code = 19 mg/dL 7-23 6313527522) GLUCOSE (test code = 243 mg/dL 70-110 H 1193224211) CREATININE (test code = 0.50 mg/dL 0.60-1.25 L 5616715618) CALCIUM (test code = 8.9 mg/dL 8.6-10.6 0720079470) eGFR (test code = mL/min/1.73m2 0114253777) ARPITA (test code = ARPITA) Association of [...] tests). Lab Interpretation Abnormal (test code = 53934-3) [facility] 11[facility]48:23 Test Item Value Reference Range Interpretation Comments MAGNESIUM (test code = 6101385646) 2.1 mg/dL 1.7-2.4 Lab Interpretation (test code = Normal 10661-7) [facility] WITH [id number] 11:09:44 Test Item Value Reference Range Interpretation Comments WBC (test code = See_Comment [Automated message] 8590-2) The system [employer] generated this result transmitted ref erence range: 4.20 - 1 0.70 10*3/?L. The re ference range was not u sed to interpret this result as normal/abnor mal. RBC (test code = See_Comment [Automated message] 789-8) The system [employer] generated this result transmitted ref erence range: [...] RDW-SD (test code 43.6 fL 38.5-51.6 = 74588-3) RDW-CV (test code 13.7 % 12.1-15.4 = 788-0) PLT (test code = See_Comment [Automated message] 777-3) The system whic h generated this result transmitted ref erence range: 150 - 32 8 10*3/?L. The re ference range was not u sed to interpret this result as normal/abnor mal. MPV (test code = 11.0 fL 9.8-13.0 24190-7) NRBC/100 WBC (test See_Comment [Automat ed message] code = [id number]) The syste m which generated this result transmitted ref erence range: 0.0 - 10 .0 /100 WBCs. The refer ence range was not u sed to interpret this result as normal/abnor mal. NRBC x10^3 (test <0.01 See_Comment [Automated message] code = [id number]) The syste m which generated this result transmitted ref erence range: 10*3/?L. The reference range was not used to interpr et this result as normal/abnormal . GRAN MAT (NEUT) % 57.9 % (test code = 770-8) IMM GRAN % (test 0.60 % code = [id number]) LYMPH % (test code 30.7 % = 736-9) MONO % (test code 8.5 % = 5905-5) EOS % (test code = 2.0 % 713-8) BASO % (test code 0.3 % = 706-2) GRAN MAT 5.14 10*3/uL 1.99-6.95 x10^3(ANC) (test code = 4983475905) IMM GRAN x10^3 0.05 10*3/uL 0.00-0.06 (test code = 8218823176) LYMPH x10^3 (test 2.73 10*3/uL 1.09-3.23 code = 731-0) MONO x10^3 (test 0.76 10*3/uL 0.36-1.02 code = 742-7) EOS x10^3 (test 0.18 10*3/uL 0.06-0.53 code = 711-2) BASO x10^3 (test 0.03 10*3/uL 0.01-0.09 code = 704-7) [facility] GLUCOSE (AUTOMATED)2021-12-22 10:34:14 Test Item Value Reference Range Interpretation Comments POCT GLU (test code = [id number]) 230 mg/dL 70-110 H Lab Interpretation (test code = Abnormal 39667-2) [facility] GLUCOSE (AUTOMATED)2021-12-22 05:56:50 Test Item Value Reference Range Interpretation Comments POCT GLU (test code = [id number]) 314 mg/dL 70-110 H Lab Interpretation (test code = Abnormal 17033-5) [facility] GLUCOSE (AUTOMATED)2021-12-22 04:40:22 Test Item Value Reference Range Interpretation Comments POCT GLU (test code = 3207018302) 324 mg/dL 70-110 H Lab Interpretation (test code = Abnormal 55954-4) [facility] GLUCOSE (AUTOMATED)2021-12-22 02:37:33 Test Item Value Reference Range Interpretation Comments POCT GLU (test code = 4870944427) 296 mg/dL 70-110 H Lab Interpretation (test code = Abnormal 23783-4) [facility] GLUCOSE (AUTOMATED)2021-12-22 01:05:02 Test Item Value Reference Range Interpretation Comments POCT GLU (test code = 3106809230) 319 mg/dL 70-110 H Lab Interpretation (test code = Abnormal 50105-2) [facility] GLUCOSE (AUTOMATED)2021-12-21 21:59:09 Test Item Value Reference Range Interpretation Comments POCT GLU (test code = 9895392773) 257 mg/dL 70-110 H Lab Interpretation (test code = Abnormal 87107-4) [facility] GLUCOSE (AUTOMATED)2021-12-21 17:21:41 Test Item Value Reference Range Interpretation Comments POCT GLU (test code = 1614427375) 214 mg/dL 70-110 H Lab Interpretation (test code = Abnormal 10833-4) [facility] GLUCOSE (AUTOMATED)2021-12-21 13:04:04 Test Item Value Reference Range Interpretation Comments POCT GLU (test code = 0149870136) 234 mg/dL 70-110 H Lab Interpretation (test code = Abnormal 72090-2) [facility] METABOLIC PANEL (NA, K, CL, CO2, GLUCOSE, BUN, CREATININE, CA)2021-12-21 12:23:33 Test Item Value Reference Range Interpretation Comments NA (test code = 136 mmol/L 135-145 4620082508) K (test code = 4.1 mmol/L 3.5-5.0 7159623543) CL (test code = 109 mmol/L 98-108 H 4261143411) CO2 TOTAL (test code = 20 mmol/L 23-31 L 6435409157) AGAP (test code = 2-16 4510268133) BUN (test code = 16 mg/dL 7-23 6809002170) GLUCOSE (test code = 281 mg/dL 70-110 H 1784033760) CREATININE (test code = 0.50 mg/dL 0.60-1.25 L 9467575149) CALCIUM (test code = 8.3 mg/dL 8.6-10.6 L 0979571751) eGFR (test code = mL/min/1.73m2 2709633499) ARPITA (test code = ARPITA) Association of [...] tests). Lab Interpretation Abnormal (test code = 36825-2) [facility] Test Item Value Reference Range Interpretation Comments MAGNESIUM (test code = 6150340077) 1.6 mg/dL 1.7-2.4 L Lab Interpretation (test code = Abnormal 71803-2) [facility] 12:23:13 Test Item Value Reference Range Interpretation Comments PHOSPHORUS (test code = 4769278202) 3.2 mg/dL 2.5-5.0 Lab Interpretation (test code = Normal 25162-4) [facility]2021-12-21 10:04:37 Test Item Value Reference Range Interpretation Comments HGB A1C (test code = 9.6 % 4.0-5.7 H 4548-4) ARPITA (test code = ARPITA) Reference RangesNormal: <5.7%Prediabetes: 5.7 - 6.4%Diabetes: > 6.5% Lab Interpretation (test Abnormal code = 54566-4) [facility] [id number] 09:29:41 Test Item Value Reference Range Interpretation Comments WBC (test code = See_Comment [Automated message] 6690-2) The system [employer] generated this result transmitted ref erence range: 4.20 - 1 0.70 10*3/?L. The re ference range was not u sed to interpret this result as normal/abnor mal. RBC (test code = See_Comment [Automated message] 789-8) The system [employer] generated this result transmitted ref erence range: [...] RDW-SD (test code 42.5 fL 38.5-51.6 = 97454-5) RDW-CV (test code 13.5 % 12.1-15.4 = 788-0) PLT (test code = See_Comment [Automated message] 777-3) The system whic h generated this result transmitted ref erence range: 150 - 32 8 10*3/?L. The re ference range was not u sed to interpret this result as normal/abnor mal. MPV (test code = 10.8 fL 9.8-13.0 41621-2) NRBC/100 WBC (test See_Comment [Automat ed message] code = 5543611675) The syste m which generated this result transmitted ref erence range: 0.0 - 10 .0 /100 WBCs. The refer ence range was not u sed to interpret this result as normal/abnor mal. NRBC x10^3 (test <0.01 See_Comment [Automated message] code = 4797575535) The syste m which generated this result transmitted ref erence range: 10*3/?L. The reference range was not used to interpr et this result as normal/abnormal . GRAN MAT (NEUT) % 58.6 % (test code = 770-8) IMM GRAN % (test 0.50 % code = 5552308857) LYMPH % (test code 31.3 % = 736-9) MONO % (test code 6.9 % = 5905-5) EOS % (test code = 2.4 % 713-8) BASO % (test code 0.3 % = 706-2) GRAN MAT 5.39 10*3/uL 1.99-6.95 x10^3(ANC) (test code = 7551969314) IMM GRAN x10^3 0.05 10*3/uL 0.00-0.06 (test code = 6635646039) LYMPH x10^3 (test 2.89 10*3/uL 1.09-3.23 code = 731-0) MONO x10^3 (test 0.64 10*3/uL 0.36-1.02 code = 742-7) EOS x10^3 (test 0.22 10*3/uL 0.06-0.53 code = 711-2) BASO x10^3 (test 0.03 10*3/uL 0.01-0.09 code = 704-7) [facility] GLUCOSE (AUTOMATED)2021-12-21 09:06:33 Test Item Value Reference Range Interpretation Comments POCT GLU (test code = 8957069420) 206 mg/dL 70-110 H Lab Interpretation (test code = Abnormal 06570-5) [facility] GLUCOSE (AUTOMATED)2021-12-21 04:38:41 Test Item Value Reference Range Interpretation Comments POCT GLU (test code = 2227069968) 272 mg/dL 70-110 H Lab Interpretation (test code = Abnormal 74724-1) [facility] GLUCOSE (AUTOMATED)2021-12-21 01:14:47 Test Item Value Reference Range Interpretation Comments POCT GLU (test code = 4231221042) 256 mg/dL 70-110 H Lab Interpretation (test code = Abnormal 95528-6) [facility] GLUCOSE (AUTOMATED)2021-12-20 21:11:19 Test Item Value Reference Range Interpretation Comments POCT GLU (test code = 2304292969) 254 mg/dL 70-110 H Lab Interpretation (test code = Abnormal 14556-3) [facility] GLUCOSE (AUTOMATED)2021-12-20 17:10:33 Test Item Value Reference Range Interpretation Comments POCT GLU (test code = 6810599786) 350 mg/dL 70-110 H Lab Interpretation (test code = Abnormal 64404-8) [facility] GLUCOSE (AUTOMATED)2021-12-20 12:50:18 Test Item Value Reference Range Interpretation Comments POCT GLU (test code = 0224871915) 269 mg/dL 70-110 H Lab Interpretation (test code = Abnormal 76671-0) [facility] Metabolic Panel (NA, K, CL, CO2, GLUCOSE, BUN, CREATININE, CA)2021-12-20 10:18:27 Test Item Value Reference Range Interpretation Comments NA (test code = 137 mmol/L 135-145 8490591574) K (test code = 4.0 mmol/L 3.5-5.0 4587216722) CL (test code = 108 mmol/L 98-108 9383749238) CO2 TOTAL (test code = 23 mmol/L 23-31 6517591598) AGAP (test code = 2-16 0503815454) BUN (test code = 16 mg/dL 7-23 5992809221) GLUCOSE (test code = 386 mg/dL 70-110 H 7805685083) CREATININE (test code = 0.70 mg/dL 0.60-1.25 4793395671) CALCIUM (test code = 8.6 mg/dL 8.6-10.6 8015384423) eGFR (test code = mL/min/1.73m2 5477054357) ARPITA (test code = ARPITA) Association of [...] tests). Lab Interpretation Abnormal (test code = 72863-6) [facility] with [id number] 10:03:31 Test Item Value Reference Range Interpretation Comments WBC (test code = See_Comment [Automated message] 6690-2) The system [employer] generated this result transmitted ref erence range: 4.20 - 1 0.70 10*3/?L. The re ference range was not u sed to interpret this result as normal/abnor mal. RBC (test code = See_Comment [Automated message] 279-8) The system [employer] generated this result transmitted ref erence range: [...] RDW-SD (test code 42.5 fL 38.5-51.6 = 00035-3) RDW-CV (test code 13.5 % 12.1-15.4 = 788-0) PLT (test code = See_Comment [Automated message] 777-3) The system [employer] generated this result transmitted ref erence range: 150 - 32 8 10*3/?L. The re ference range was not u sed to interpret this result as normal/abnor mal. MPV (test code = 11.2 fL 9.8-13.0 91883-9) NRBC/100 WBC (test See_Comment [Automat ed message] code = 4563182387) The [employer] which generated this result transmitted ref erence range: 0.0 - 10 .0 /100 WBCs. The refer ence range was not u sed to interpret this result as normal/abnor mal. NRBC x10^3 (test <0.01 See_Comment [Automated message] code = 0015118334) The syste m which generated this result transmitted ref erence range: 10*3/?L. The reference range was not used to interpr et this result as normal/abnormal . GRAN MAT (NEUT) % 63.5 % (test code = 770-8) IMM GRAN % (test 0.30 % code = 0430880079) LYMPH % (test code 24.8 % = 736-9) MONO % (test code 8.7 % = 5905-5) EOS % (test code = 2.5 % 713-8) BASO % (test code 0.2 % = 706-2) GRAN MAT 6.05 10*3/uL 1.99-6.95 x10^3(ANC) (test code = 4081919631) IMM GRAN x10^3 0.03 10*3/uL 0.00-0.06 (test code = 0499496888) LYMPH x10^3 (test 2.37 10*3/uL 1.09-3.23 code = 731-0) MONO x10^3 (test 0.83 10*3/uL 0.36-1.02 code = 742-7) EOS x10^3 (test 0.24 10*3/uL 0.06-0.53 code = 711-2) BASO x10^3 (test <0.03 0.01-0.09 code = 704-7) [facility] GLUCOSE (AUTOMATED)2021-12-20 09:00:15 Test Item Value Reference Range Interpretation Comments POCT GLU (test code = 4865117408) 402 mg/dL 70-110 H Lab Interpretation (test code = Abnormal 00703-2) [facility] GLUCOSE (AUTOMATED)2021-12-20 04:54:36 Test Item Value Reference Range Interpretation Comments POCT GLU (test code = 1538320912) 368 mg/dL 70-110 H Lab Interpretation (test code = Abnormal 58230-0) [facility] GLUCOSE (AUTOMATED)2021-12-20 03:13:40 Test Item Value Reference Range Interpretation Comments POCT GLU (test code = 1423748206) 438 mg/dL 70-110 H Lab Interpretation (test code = Abnormal 38687-7) [facility]. METABOLIC PANEL (62451)2021-12-20 01:05:39 Test Item Value Reference Range Interpretation Comments NA (test code = 133 mmol/L 135-145 L 9281606349) K (test code = 4.7 mmol/L 3.5-5.0 8754838636) CL (test code = 99 mmol/L 98-108 0535757927) CO2 TOTAL (test code = 21 mmol/L 23-31 L 0052432000) AGAP (test code = 2-16 7163757765) BUN (test code = 18 mg/dL 7-23 4985288678) GLUCOSE (test code = 660 mg/dL 70-110 HH 6673977957) CREATININE (test code = 0.64 mg/dL 0.60-1.25 8253878552) TOTAL BILI (test code = 1.0 mg/dL 0.1-1.9 7679376940) CALCIUM (test code = 9.7 mg/dL 8.6-10.6 9391462923) T PROTEIN (test code = 7.9 g/dL 6.3-8.2 6999038889) ALBUMIN (test code = 4.4 g/dL 3.5-5.0 5790224283) ALK PHOS (test code = 143 U/L 34-122 H 9157312950) ALTv (test code = 47 U/L 5-50 1742-6) AST(SGOT) (test code = 30 U/L 13-40 7755544085) eGFR (test code = mL/min/1.73m2 9079450841) ARPITA (test code = ARPITA) Association of [...] tests). Lab Interpretation Abnormal (test code = 60361-0) [facility] Test Item Value Reference Range Interpretation Comments LIPASE (test code = 2104996067) 255 U/L 0-220 H Lab Interpretation (test code = Abnormal 90362-5) [facility] WITH [id number] 00:38:14 Test Item Value Reference Range Interpretation Comments WBC (test code = See_Comment H [Automated 9290-2) message] The sy stem which generated this result transmitted reference range : 4.20 - 10.70 10*3/?L. The reference range was not used to interpret this result as normal/abnormal . RBC (test code = See_Comment H [Automated 729-8) message] The sy stem which generated this [...] RDW-SD (test code = 43.8 fL 38.5-51.6 01438-3) RDW-CV (test code = 13.6 % 12.1-15.4 788-0) PLT (test code = See_Comment [Automated 777-3) message] The sy stem which generated this result transmitted reference range : 150 - 328 10*3/ ?L. The reference r boubacar was not used to interpret this result as normal/abnormal . MPV (test code = 11.4 fL 9.8-13.0 04316-8) NRBC/100 WBC (test See_Comment [Automat ed code = 7989649320) message] The system which generated this result transmitted reference range : 0.0 - 10.0 /100 WBCs. The refer ence range was not u sed to interpret th is result as normal/abnormal . NRBC x10^3 (test code <0.01 See_Comment [Auto mated = 3550888749) message] The s ystem which generated this result transmitted reference range : 10*3/?L. The reference range was not used to interpret this result as normal/abnormal . GRAN MAT (NEUT) % 76.0 % (test code = 770-8) IMM GRAN % (test code 0.50 % = 9278078457) LYMPH % (test code = 15.2 % 736-9) MONO % (test code = 6.5 % 5905-5) EOS % (test code = 1.6 % 713-8) BASO % (test code = 0.2 % 706-2) GRAN MAT x10^3(ANC) 8.55 10*3/uL 1.99-6.95 H (test code = 0519730336) IMM GRAN x10^3 (test 0.06 10*3/uL 0.00-0.06 code = 8874074268) LYMPH x10^3 (test code 1.71 10*3/uL 1.09-3.23 = 731-0) MONO x10^3 (test code 0.73 10*3/uL 0.36-1.02 = 742-7) EOS x10^3 (test code = 0.18 10*3/uL 0.06-0.53 711-2) BASO x10^3 (test code <0.03 0.01-0.09 = 704-7) Lab Interpretation Abnormal (test code = 79165-1) [facility]32:39 Test Item Value Reference Range Interpretation Comments MAGNESIUM (test code = 2445123361) 1.7 mg/dL 1.7-2.4 Lab Interpretation (test code = Normal 50995-7) [facility] METABOLIC PANEL (NA, K, CL, CO2, GLUCOSE, BUN, CREATININE, CA)2021-12-18 18:32:38 Test Item Value Reference Range Interpretation Comments NA (test code = 137 mmol/L 135-145 6115780229) K (test code = 4.3 mmol/L 3.5-5.0 1935947047) CL (test code = 105 mmol/L 98-108 7949617977) CO2 TOTAL (test code = 23 mmol/L 23-31 7184983243) AGAP (test code = 2-16 5122046486) BUN (test code = 17 mg/dL 7-23 9652264963) GLUCOSE (test code = 317 mg/dL 70-110 H 0293004427) CREATININE (test code = 0.57 mg/dL 0.60-1.25 L 8403790346) CALCIUM (test code = 9.3 mg/dL 8.6-10.6 7511285456) eGFR (test code = mL/min/1.73m2 5512803326) ARPITA (test code = ARPITA) Association of [...] tests). Lab Interpretation Abnormal (test code = 11021-8) [facility] WITH [id number] 18:10:18 Test Item Value Reference Range Interpretation Comments WBC (test code = See_Comment [Automated message] 4490-2) The system [employer] generated this result transmitted ref erence range: 4.20 - 1 0.70 10*3/?L. The re ference range was not u sed to interpret this result as normal/abnor mal. RBC (test code = See_Comment [Automated message] 659-8) The system [employer] generated this result transmitted ref erence range: [...] RDW-SD (test code 44.4 fL 38.5-51.6 = 13254-3) RDW-CV (test code 13.8 % 12.1-15.4 = 788-0) PLT (test code = See_Comment [Automated message] 137-3) The system whic h generated this result transmitted ref erence range: 150 - 32 8 10*3/?L. The re ference range was not u sed to interpret this result as normal/abnor mal. MPV (test code = 10.9 fL 9.8-13.0 69370-7) NRBC/100 WBC (test See_Comment [Automat ed message] code = 1728167186) The syste m which generated this result transmitted ref erence range: 0.0 - 10 .0 /100 WBCs. The refer ence range was not u sed to interpret this result as normal/abnor mal. NRBC x10^3 (test <0.01 See_Comment [Automated message] code = 9072971320) The syste m which generated this result transmitted ref erence range: 10*3/?L. The reference range was not used to interpr et this result as normal/abnormal . GRAN MAT (NEUT) % 53.4 % (test code = 770-8) IMM GRAN % (test 0.30 % code = 1421303124) LYMPH % (test code 35.3 % = 736-9) MONO % (test code 7.4 % = 5905-5) EOS % (test code = 3.3 % 713-8) BASO % (test code 0.3 % = 706-2) GRAN MAT 3.59 10*3/uL 1.99-6.95 x10^3(ANC) (test code = 7572543503) IMM GRAN x10^3 <0.03 0.00-0.06 (test code = 8867703795) LYMPH x10^3 (test 2.37 10*3/uL 1.09-3.23 code = 731-0) MONO x10^3 (test 0.50 10*3/uL 0.36-1.02 code = 742-7) EOS x10^3 (test 0.22 10*3/uL 0.06-0.53 code = 711-2) BASO x10^3 (test <0.03 0.01-0.09 code = 704-7) [facility] GLUCOSE (AUTOMATED)2021-12-18 16:50:23 Test Item Value Reference Range Interpretation Comments POCT GLU (test code = 5658685016) 304 mg/dL 70-110 H Lab Interpretation (test code = Abnormal 89993-1) [facility] GLUCOSE (AUTOMATED)2021-12-18 12:58:13 Test Item Value Reference Range Interpretation Comments POCT GLU (test code = 8414793694) 364 mg/dL 70-110 H Lab Interpretation (test code = Abnormal 20077-6) [facility] GLUCOSE (AUTOMATED)2021-12-18 09:42:05 Test Item Value Reference Range Interpretation Comments POCT GLU (test code = 2164115587) 369 mg/dL 70-110 H Lab Interpretation (test code = Abnormal 71424-1) [facility] GLUCOSE (AUTOMATED)2021-12-18 05:09:33 Test Item Value Reference Range Interpretation Comments POCT GLU (test code = 3574576042) 332 mg/dL 70-110 H Lab Interpretation (test code = Abnormal 75963-6) [facility] GLUCOSE (AUTOMATED)2021-12-18 01:27:31 Test Item Value Reference Range Interpretation Comments POCT GLU (test code = 5705718914) 349 mg/dL 70-110 H Lab Interpretation (test code = Abnormal 02142-8) [facility] GLUCOSE (AUTOMATED)2021-12-17 21:42:26 Test Item Value Reference Range Interpretation Comments POCT GLU (test code = 5200442643) 372 mg/dL 70-110 H Lab Interpretation (test code = Abnormal 19441-4) [facility] GLUCOSE (AUTOMATED)2021-12-17 17:17:16 Test Item Value Reference Range Interpretation Comments POCT GLU (test code = 1454280849) 329 mg/dL 70-110 H Lab Interpretation (test code = Abnormal 44844-9) [facility] GLUCOSE (AUTOMATED)2021-12-17 14:09:34 Test Item Value Reference Range Interpretation Comments POCT GLU (test code = 0138629447) 350 mg/dL 70-110 H Lab Interpretation (test code = Abnormal 97831-3) [facility] GLUCOSE (AUTOMATED)2021-12-17 09:59:20 Test Item Value Reference Range Interpretation Comments POCT GLU (test code = 2667065975) 342 mg/dL 70-110 H Lab Interpretation (test code = Abnormal 93974-6) [facility] GLUCOSE (AUTOMATED)2021-12-17 01:46:05 Test Item Value Reference Range Interpretation Comments POCT GLU (test code = 2513929435) 318 mg/dL 70-110 H Lab Interpretation (test code = Abnormal 37439-9) [facility] GLUCOSE (AUTOMATED)2021-12-16 21:25:33 Test Item Value Reference Range Interpretation Comments POCT GLU (test code = 0609518377) 212 mg/dL 70-110 H Lab Interpretation (test code = Abnormal 43074-0) [facility] GLUCOSE (AUTOMATED)2021-12-16 16:27:52 Test Item Value Reference Range Interpretation Comments POCT GLU (test code = 8729523339) 226 mg/dL 70-110 H Lab Interpretation (test code = Abnormal 31201-8) [facility] GLUCOSE (AUTOMATED)2021-12-16 15:37:46 Test Item Value Reference Range Interpretation Comments POCT GLU (test code = 9415255340) 204 mg/dL 70-110 H Lab Interpretation (test code = Abnormal 12371-7) [facility] GLUCOSE (AUTOMATED)2021-12-16 14:39:25 Test Item Value Reference Range Interpretation Comments POCT GLU (test code = 1001430274) 185 mg/dL 70-110 H Lab Interpretation (test code = Abnormal 72962-1) [facility] Metabolic Panel (Na, K, Cl, CO2, Glucose, BUN, Creatinine, Ca)2021-12-16 14:07:03 Test Item Value Reference Range Interpretation Comments NA (test code = 137 mmol/L 135-145 0320729574) K (test code = 4.6 mmol/L 3.5-5.0 6031334422) CL (test code = 111 mmol/L 98-108 H 1436753479) CO2 TOTAL (test code = 22 mmol/L 23-31 L 6173106189) AGAP (test code = 2-16 0567187478) BUN (test code = 12 mg/dL 7-23 9559810209) GLUCOSE (test code = 181 mg/dL 70-110 H 7785304201) CREATININE (test code = 0.70 mg/dL 0.60-1.25 6011988071) CALCIUM (test code = 8.3 mg/dL 8.6-10.6 L 0546113120) eGFR (test code = mL/min/1.73m2 6778514273) ARPITA (test code = ARPITA) Association of [...] tests). Lab Interpretation Abnormal (test code = 00002-4) [facility] GLUCOSE (AUTOMATED)2021-12-16 13:45:48 Test Item Value Reference Range Interpretation Comments POCT GLU (test code = 7099183131) 170 mg/dL 70-110 H Lab Interpretation (test code = Abnormal 78841-1) [facility] GLUCOSE (AUTOMATED)2021-12-16 12:28:12 Test Item Value Reference Range Interpretation Comments POCT GLU (test code = 2712858066) 109 mg/dL 70-110 Lab Interpretation (test code = Normal 92240-1) [facility] GLUCOSE (AUTOMATED)2021-12-16 11:25:37 Test Item Value Reference Range Interpretation Comments POCT GLU (test code = 4150386448) 134 mg/dL 70-110 H Lab Interpretation (test code = Abnormal 90694-5) [facility] Metabolic Panel (Na, K, Cl, CO2, Glucose, BUN, Creatinine, Ca)2021-12-16 10:50:17 Test Item Value Reference Range Interpretation Comments NA (test code = 138 mmol/L 135-145 2718573932) K (test code = 5.1 mmol/L 3.5-5.0 H Slight 5719353198) hemolysis CL (test code = 110 mmol/L 98-108 H 8996420966) CO2 TOTAL (test code 23 mmol/L 23-31 = 2518876405) AGAP (test code = 2-16 5335224139) BUN (test code = 13 mg/dL 7-23 Slight 6673667403) hemolysis GLUCOSE (test code = 131 mg/dL 70-110 H 5079593091) CREATININE (test code 0.73 mg/dL 0.60-1.25 = 0747465418) CALCIUM (test code = 8.9 mg/dL 8.6-10.6 6180386074) eGFR (test code = mL/min/1.73m2 9104947269) ARPITA (test code = ARPITA) Association of [...] tests). Lab Interpretation Abnormal (test code = 77709-5) [facility] GLUCOSE (AUTOMATED)2021-12-16 10:35:11 Test Item Value Reference Range Interpretation Comments POCT GLU (test code = 0282422146) 125 mg/dL 70-110 H Lab Interpretation (test code = Abnormal 42565-6) [facility] GLUCOSE (AUTOMATED)2021-12-16 09:31:05 Test Item Value Reference Range Interpretation Comments POCT GLU (test code = 3516398404) 137 mg/dL 70-110 H Lab Interpretation (test code = Abnormal 75435-1) [facility] GLUCOSE (AUTOMATED)2021-12-16 08:28:48 Test Item Value Reference Range Interpretation Comments POCT GLU (test code = 2599686467) 168 mg/dL 70-110 H Lab Interpretation (test code = Abnormal 03751-9) [facility] GLUCOSE (AUTOMATED)2021-12-16 07:26:17 Test Item Value Reference Range Interpretation Comments POCT GLU (test code = 1414906853) 165 mg/dL 70-110 H Lab Interpretation (test code = Abnormal 37487-7) [facility] Metabolic Panel (Na, K, Cl, CO2, Glucose, BUN, Creatinine, Ca)2021-12-16 07:18:59 Test Item Value Reference Range Interpretation Comments NA (test code = 136 mmol/L 135-145 7192787723) K (test code = 5.1 mmol/L 3.5-5.0 H 6782383031) CL (test code = 108 mmol/L 98-108 4529073937) CO2 TOTAL (test code = 24 mmol/L 23-31 3574913246) AGAP (test code = 2-16 5598990445) BUN (test code = 14 mg/dL 7-23 1600360530) GLUCOSE (test code = 202 mg/dL 70-110 H 0145000915) CREATININE (test code = 0.79 mg/dL 0.60-1.25 4429744253) CALCIUM (test code = 8.9 mg/dL 8.6-10.6 7961956260) eGFR (test code = mL/min/1.73m2 9766051209) ARPITA (test code = ARPITA) Association of [...] tests). Lab Interpretation Abnormal (test code = 65012-2) [facility]-LOPYTDEW0095-94-39 06:57:08 Test Item Value Reference Range Interpretation Comments BOH (test code = <0.1 mmol/L 2673587876) ARPITA (test code = Normal Ranges: ? ? ARPITA) Nonfasting ? Less than 0.1 mmol/L ? ? Overnight Fast ? ? ? Less than 0.4 mmol/L ? ? Fasting (1-2 weeks) ?6-8 mmol/L Test developed and characteristics determined by [facility] Laboratory Services. [facility] GLUCOSE (AUTOMATED)2021-12-16 06:24:07 Test Item Value Reference Range Interpretation Comments POCT GLU (test code = 4720743716) 212 mg/dL 70-110 H Lab Interpretation (test code = Abnormal 87224-1) [facility] GLUCOSE (AUTOMATED)2021-12-16 05:28:19 Test Item Value Reference Range Interpretation Comments POCT GLU (test code = 1972042210) 239 mg/dL 70-110 H Lab Interpretation (test code = Abnormal 40562-8) [facility] GLUCOSE (AUTOMATED)2021-12-16 04:29:31 Test Item Value Reference Range Interpretation Comments POCT GLU (test code = [id number]) 251 mg/dL 70-110 H Lab Interpretation (test code = Abnormal 74620-8) [facility] (Na, K, Cl, CO2, Glucose, BUN, Creatinine, Ca)2021-12-16 03:49:55 Test Item Value Reference Range Interpretation Comments NA (test code = 141 mmol/L 135-145 [id number]) K (test code = 4.2 mmol/L 3.5-5.0 5304976212) CL (test code = 108 mmol/L 98-108 3487829306) CO2 TOTAL (test code = 26 mmol/L 23-31 0261201759) AGAP (test code = 2-16 [id number]) BUN (test code = 14 mg/dL 7-23 5838880769) GLUCOSE (test code = 164 mg/dL 70-110 H 7050542281) CREATININE (test code = 0.84 mg/dL 0.60-1.25 3109070986) CALCIUM (test code = 9.3 mg/dL 8.6-10.6 1022772811) eGFR (test code = mL/min/1.73m2 7833325780) ARPITA (test code = ARPITA) Association of [...] tests). Lab Interpretation Abnormal (test code = 13785-2) [facility] GLUCOSE (AUTOMATED)2021-12-16 03:20:15 Test Item Value Reference Range Interpretation Comments POCT GLU (test code = 4969550701) 174 mg/dL 70-110 H Lab Interpretation (test code = Abnormal 40661-2) [facility] GLUCOSE (AUTOMATED)2021-12-16 02:25:54 Test Item Value Reference Range Interpretation Comments POCT GLU (test code = 0295343923) 158 mg/dL 70-110 H Lab Interpretation (test code = Abnormal 78196-1) [facility] GLUCOSE (AUTOMATED)2021-12-16 01:37:09 Test Item Value Reference Range Interpretation Comments POCT GLU (test code = 8144892439) 219 mg/dL 70-110 H Lab Interpretation (test code = Abnormal 63096-3) [facility] GLUCOSE (AUTOMATED)2021-12-16 00:19:48 Test Item Value Reference Range Interpretation Comments POCT GLU (test code = 8412242211) 345 mg/dL 70-110 H Lab Interpretation (test code = Abnormal 70900-9) [facility] GLUCOSE (AUTOMATED)2021-12-15 22:59:57 Test Item Value Reference Range Interpretation Comments POCT GLU (test code = 2765567006) 318 mg/dL 70-110 H Lab Interpretation (test code = Abnormal 03230-4) [facility] (Na, K, Cl, CO2, Glucose, BUN, Creatinine, Ca)2021-12-15 22:41:00 Test Item Value Reference Range Interpretation Comments NA (test code = 140 mmol/L 135-145 8554371233) K (test code = 3.1 mmol/L 3.5-5.0 L 4253608974) CL (test code = 116 mmol/L 98-108 H 5273959145) CO2 TOTAL (test code = 21 mmol/L 23-31 L 4838174840) AGAP (test code = 2-16 1562282733) BUN (test code = 12 mg/dL 7-23 7218551610) GLUCOSE (test code = 281 mg/dL 70-110 H 2243505394) CREATININE (test code = 0.62 mg/dL 0.60-1.25 6108905486) CALCIUM (test code = 7.2 mg/dL 8.6-10.6 L 1119522626) eGFR (test code = mL/min/1.73m2 7484583425) ARPITA (test code = ARPITA) Association of [...] tests). Lab Interpretation Abnormal (test code = 39933-9) [facility] GLUCOSE (AUTOMATED)2021-12-15 21:53:29 Test Item Value Reference Range Interpretation Comments POCT GLU (test code = 9688621987) 368 mg/dL 70-110 H Lab Interpretation (test code = Abnormal 24899-1) [facility] GLUCOSE (AUTOMATED)2021-12-15 20:41:51 Test Item Value Reference Range Interpretation Comments POCT GLU (test code = 1928168296) 458 mg/dL 70-110 HH Lab Interpretation (test code = Abnormal 21449-1) [facility] GLUCOSE (AUTOMATED)2021-12-15 19:00:13 Test Item Value Reference Range Interpretation Comments POCT GLU (test code = 7882021177) 369 mg/dL 70-110 H Lab Interpretation (test code = Abnormal 94207-4) [facility] Metabolic Panel (Na, K, Cl, CO2, Glucose, BUN, Creatinine, Ca)2021-12-15 18:32:29 Test Item Value Reference Range Interpretation Comments NA (test code = 145 mmol/L 135-145 5581011524) K (test code = 4.8 mmol/L 3.5-5.0 Slight 6816001877) hemolysis CL (test code = 112 mmol/L 98-108 H 6751316551) CO2 TOTAL (test code 26 mmol/L 23-31 = 4914475049) AGAP (test code = 2-16 4126853180) BUN (test code = 16 mg/dL 7-23 Slight 0350216283) hemolysis GLUCOSE (test code = 282 mg/dL 70-110 H 2777933783) CREATININE (test code 0.83 mg/dL 0.60-1.25 = 8755962968) CALCIUM (test code = 10.0 mg/dL 8.6-10.6 6581336294) eGFR (test code = mL/min/1.73m2 2245321110) ARPITA (test code = ARPITA) Association of [...] tests). Lab Interpretation Abnormal (test code = 57423-4) [facility] 17:45:09 Test Item Value Reference Range Interpretation Comments POCT GLU (test code = 2260923079) 284 mg/dL 70-110 H Lab Interpretation (test code = Abnormal 68841-8) [facility] CenterBetahydroxy-Ulbtbdrv4067-21-52 16:41:13 Test Item Value Reference Range Interpretation Comments BOH (test code = 0.9 mmol/L 5030996768) ARPITA (test code = Normal Ranges: ? ? ARPITA) Nonfasting ? Less than 0.1 mmol/L ? ? Overnight Fast ? ? ? Less than 0.4 mmol/L ? ? Fasting (1-2 weeks) ?6-8 mmol/L Test developed and characteristics determined by [facility] Laboratory Services. [facility] GLUCOSE (AUTOMATED)2021-12-15 16:33:41 Test Item Value Reference Range Interpretation Comments POCT GLU (test code = 6083848295) 266 mg/dL 70-110 H Lab Interpretation (test code = Abnormal 02991-1) [facility] GLUCOSE (AUTOMATED)2021-12-15 15:30:41 Test Item Value Reference Range Interpretation Comments POCT GLU (test code = 2498743081) 294 mg/dL 70-110 H Lab Interpretation (test code = Abnormal 05136-7) [facility] GLUCOSE (AUTOMATED)2021-12-15 14:23:40 Test Item Value Reference Range Interpretation Comments POCT GLU (test code = 0351337051) 511 mg/dL 70-110 HH Lab Interpretation (test code = Abnormal 59827-7) [facility] WITHOUT [id number] 13:55:53 Test Item Value Reference Range Interpretation Comments WBC (test code = 6690-2) See_Comment H [A utomated message] The system [employer] generated this result transmit lester reference range : 4.20 - 10.70 10*3/?L. The reference range was not used to interpret this result as normal/abnormal . RBC (test code = 789-8) See_Comment H [Au tomated message] The system [employer] generated this result transmit lester reference range [...] See_Comment H [Au tomated message] The system [employer] generated this result transmit lester reference range : 150 - 328 10*3/?L. The reference range was not used to interpret this result as normal/abnormal . MPV (test code = 11.0 fL 9.8-13.0 08216-2) RDW-CV (test code = 14.2 % 12.1-15.4 788-0) RDW-SD (test code = 44.8 fL 38.5-51.6 61054-8) NRBC x10^3 (test code = <0.01 See_Comment [Au tomated message] 0024894079) The system [employer] h generated this result transmit lester reference range : 10*3/?L. The reference range was not used to interpret this result as normal/abnormal . NRBC/100 WBC (test code See_Comment [Au tomated message] = 7952773375) The system [employer] generated this result transmit lester reference range : 0.0 - 10.0 /100 WBC s. The reference r boubacar was not used to interpret this result as normal/abnormal . IPF % (test code = 8148788231) Lab Interpretation (test Abnormal code = 06604-7) [facility] GLUCOSE (AUTOMATED)2021-12-15 13:34:21 Test Item Value Reference Range Interpretation Comments POCT GLU (test code = 2891229418) 538 mg/dL 70-110 HH Lab Interpretation (test code = Abnormal 37187-1) [facility] GLUCOSE (AUTOMATED)2021-12-15 13:30:43 Test Item Value Reference Range Interpretation Comments POCT GLU (test code = 8509993309) >600 70-110 HH Lab Interpretation (test code = Abnormal 33380-5) [facility] GLUCOSE (AUTOMATED)2021-12-15 13:30:43 Test Item Value Reference Range Interpretation Comments POCT GLU (test code = 8832382283) >600 70-110 HH Lab Interpretation (test code = Abnormal 21868-3) [facility] GLUCOSE (AUTOMATED)2021-12-15 13:30:43 Test Item Value Reference Range Interpretation Comments POCT GLU (test code = >600 70-110 HH Notifi ed Provider 5287177722) Lab Interpretation (test Abnormal code = 00810-1) [facility] GLUCOSE (AUTOMATED)2021-12-15 13:30:43 Test Item Value Reference Range Interpretation Comments POCT GLU (test code = 3623503300) >600 70-110 HH Lab Interpretation (test code = Abnormal 14496-4) [facility] GLUCOSE (AUTOMATED)2021-12-15 13:30:38 Test Item Value Reference Range Interpretation Comments POCT GLU (test code = 6796051907) >600 70-110 HH Lab Interpretation (test code = Abnormal 50837-7) [facility] GLUCOSE (AUTOMATED)2021-12-15 13:30:38 Test Item Value Reference Range Interpretation Comments POCT GLU (test code = 7560284322) >600 70-110 HH Lab Interpretation (test code = Abnormal 23541-4) [facility] CenterOsmolality [id number] 12:37:44 Test Item Value Reference Range Interpretation Comments OSMOLALITY (test code = See_Comment HH [Au tomated message] 2692-2) The system [employer] generated this result transmitted ref erence range: 278 - 30 5 mOsm/kg. The reference range was not used to int erpret this result as normal/abnormal . Lab Interpretation (test Abnormal code = 33226-0) [facility] Metabolic Panel (Na, K, Cl, CO2, Glucose, BUN, Creatinine, Ca)2021-12-15 12:23:35 Test Item Value Reference Range Interpretation Comments NA (test code = 145 mmol/L 135-145 7513812532) K (test code = 4.4 mmol/L 3.5-5.0 1380699330) CL (test code = 109 mmol/L 98-108 H 2418998822) CO2 TOTAL (test code = 21 mmol/L 23-31 L 2532883484) AGAP (test code = 2-16 8863414728) BUN (test code = 15 mg/dL 7-23 7789956723) GLUCOSE (test code = 753 mg/dL 70-110 HH 8013093573) CREATININE (test code = 0.79 mg/dL 0.60-1.25 6604942412) CALCIUM (test code = 10.9 mg/dL 8.6-10.6 H 6118792301) eGFR (test code = mL/min/1.73m2 7086068886) ARPITA (test code = ARPITA) Association of [...] tests). Lab Interpretation Abnormal (test code = 96496-0) [facility]2021-12-15 12:14:56 Test Item Value Reference Range Interpretation Comments POCT GLU (test code = 9938946757) 564 mg/dL 70-110 HH Lab Interpretation (test code = Abnormal 02921-3) [facility] CenterMagnesium [id number] 12:05:40 Test Item Value Reference Range Interpretation Comments MAGNESIUM (test code = 5642501345) 2.5 mg/dL 1.7-2.4 H Lab Interpretation (test code = Abnormal 03020-3) [facility]:20 Test Item Value Reference Range Interpretation Comments MAGNESIUM (test code = 8676150104) 2.5 mg/dL 1.7-2.4 H Lab Interpretation (test code = Abnormal 59632-8) [facility] CenterPhosphorus [id number] 12:05:20 Test Item Value Reference Range Interpretation Comments PHOSPHORUS (test code = 1931205181) 6.2 mg/dL 2.5-5.0 H Lab Interpretation (test code = Abnormal 86122-6) [facility] Center[facility] PAN[facility] 21 + LACTIC [id number] 05:53:48 Test Item Value Reference Range Interpretation Comments PH (test code = 7.32-7.42 4972811086) PCO2 STEVO (test code See_Comment [Automa lester = 1291932978) message] The system which generated this result transmitted reference range : 41 - 51 mmHg. T he reference range was not used to interpret this result as normal/abnormal . PO2 STEVO (test code = See_Comment HH [Autom ated 3634338645) message] The system which generated this result transmitted reference range : 25 - 40 mmHg. T he reference range was not used to interpret this result as normal/abnormal . HCO3 STEVO (test code See_Comment L [Automa lester = 5254532818) message] The system which generated this result transmitted reference range : 24 - 28 mEq/L. The reference range was not used to interpr et this result as normal/abnormal . AC VBE(BEAKER) (test mEq/L code = 1407507674) THB STEVO (test code = 17.7 g/dL 13.5-18.0 7528978460) %O2HB STEVO (test code 93.8 % 52.0-63.0 H = 2920121232) %COHB STEVO (test code 2.1 % 0.0-1.5 H = 9283656689) %METHB STEVO (test 0.1 % 0.4-1.5 L code = 0770289450) VOL%O2 STEVO (test 23.3 % 6.0-12.0 H code = 9214028649) NA (test code = 142 mmol/L 135-145 7975407642) K+ (test code = 4.4 mmol/L 3.5-5.0 4007214407) AC CA IONZ (test 5.40 mg/dL 4.50-5.30 H code = 2222495132) GLUCOSE (test code = <20 70-110 LL 3940249218) LACTIC ACID (test 3.37 mmol/L 0.50-2.20 H code = 0243933517) ARPITA (test code = *ac gluc ARPITA) unmeasurable Lab Interpretation Abnormal (test code = 28655-4) [facility]. METABOLIC PANEL (48109)2021-12-15 04:59:53 Test Item Value Reference Range Interpretation Comments NA (test code = 140 mmol/L 135-145 3184208669) K (test code = 4.8 mmol/L 3.5-5.0 4774504882) CL (test code = 100 mmol/L 98-108 9712537220) CO2 TOTAL (test code = 20 mmol/L 23-31 L 5753697748) AGAP (test code = 2-16 H 5498943615) BUN (test code = 14 mg/dL 7-23 1649991216) GLUCOSE (test code = 1083 mg/dL 70-110 HH 4505513429) CREATININE (test code = 0.80 mg/dL 0.60-1.25 1969832808) TOTAL BILI (test code = 1.0 mg/dL 0.1-1.0 2874958699) CALCIUM (test code = 12.0 mg/dL 8.6-10.6 H 0303675149) T PROTEIN (test code = 8.1 g/dL 6.3-8.2 5942011254) ALBUMIN (test code = 4.7 g/dL 3.5-5.0 7763328401) ALK PHOS (test code = 173 U/L 34-122 H 5946770744) ALTv (test code = 36 U/L 5-50 1742-6) AST(SGOT) (test code = 18 U/L 13-40 6863716021) eGFR (test code = mL/min/1.73m2 3549947962) ARPITA (test code = ARPITA) Association of [...] tests). Lab Interpretation Abnormal (test code = 02480-7) [facility] CenterTROPONIN [id number] 03:51:43 Test Item Value Reference Interpretation Comments Range TROPONIN I (test <0.012 See_Comment [Automated code = 6867239882) message] The system which generated this result [...] biotin. Lab Interpretation Normal (test code = 67120-2) [facility] CenterN-TERMINAL [id number] 03:48:23 Test Item Value Reference Range Interpretation Comments NT-proBNP (test code 71 pg/mL See_Comment [Autom ated = 8805055508) message] The system which generated this result transmitted reference range : <=125. The reference range was not used to interpret this result as normal/abnormal . ARPITA (test code = ARPITA) Biotin has been reported to cause a negative bias, interpret results relative to patient's use of biotin. Lab Interpretation Normal (test code = 47149-6) [facility] CenterN-[facility]MINAL [id number] 03:48:23 Test Item Value Reference Range Interpretation Comments NT-proBNP (test code 71 pg/mL See_Comment [Autom ated = 3712704329) message] The system which generated this result transmitted reference range : <=125. The reference range was not used to interpret this result as normal/abnormal . ARPITA (test code = ARPITA) Biotin has been reported to cause a negative bias, interpret results relative to patient's use of biotin. Lab Interpretation Normal (test code = 95739-6) [facility] CenterLIPASE2022-[facility] 03:39:44 Test Item Value Reference Range Interpretation Comments LIPASE (test code = 6138793834) 120 U/L 0-220 Lab Interpretation (test code = Normal 20191-2) [facility] CenterACT[facility]IAL THRMPLAS [id number] 03:38:23 Test Item Value Reference Range Interpretation Comments APTT Patient (test See_Comment [Automat ed code = 3173-2) message] The system which generated this result transmitted reference range : 23 - 38 Seconds . The reference range was not used to interpr et this result as normal/abnormal . ARPITA (test code = ARPITA) The [facility] patient population mean normal value for aPTT is 30 seconds. Lab Interpretation Normal (test code = 72472-3) [facility] THRM[facility]AS [id number] 03:38:23 Test Item Value Reference Range Interpretation Comments APTT Patient (test See_Comment [Automat ed code = 3173-2) message] The system which generated this result transmitted reference range : 23 - 38 Seconds . The reference range was not used to interpr et this result as normal/abnormal . ARPITA (test code = ARPITA) The [facility] patient population mean normal value for aPTT is 30 seconds. Lab Interpretation Normal (test code = 32826-9) [facility] CenterPROTHROMBIN TIME / [id number] 03:36:22 Test Item Value Reference Range Interpretation [...] tions. Lab Interpretation (test Normal code = 44404-9) [facility] WITH [id number] 03:35:42 Test Item Value Reference Range Interpretation Comments WBC (test code = See_Comment H [Automated 1990-2) message] The system which generated this result [...] RDW-SD (test code = 44.7 fL 38.5-51.6 51047-1) RDW-CV (test code = 14.2 % 12.1-15.4 788-0) PLT (test code = See_Comment H [Automated 777-3) message] The system which generated this result transmit lester reference range : 150 - 328 10*3/ ?L. The reference range was not u sed to interpret th is result as normal/abnormal . MPV (test code = 11.5 fL 9.8-13.0 27420-2) NRBC/100 WBC (test See_Comment [Automat ed code = 0250905776) message] The system which generated this result transmit lester reference range : 0.0 - 10.0 /100 WBCs. The reference range was not used to interpret this result as normal/abnormal . NRBC x10^3 (test code <0.01 See_Comment [Auto mated = 2976301654) message] The system which generated this result transmit lester reference range : 10*3/?L. The reference range was not used to interpret this result as normal/abnormal . GRAN MAT (NEUT) % 85.2 % (test code = 770-8) IMM GRAN % (test code 0.90 % = 7537518887) LYMPH % (test code = 5.9 % 736-9) MONO % (test code = 7.8 % 5905-5) EOS % (test code = 0.0 % 713-8) BASO % (test code = 0.2 % 706-2) GRAN MAT x10^3(ANC) 12.85 10*3/uL 1.99-6.95 H (test code = 9137162722) IMM GRAN x10^3 (test 0.13 10*3/uL 0.00-0.06 H code = 6039514666) LYMPH x10^3 (test code 0.89 10*3/uL 1.09-3.23 L = 731-0) MONO x10^3 (test code 1.17 10*3/uL 0.36-1.02 H = 742-7) EOS x10^3 (test code = <0.03 0.06-0.53 L 711-2) BASO x10^3 (test code 0.03 10*3/uL 0.01-0.09 = 704-7) Lab Interpretation Abnormal (test code = 09019-2) [facility] CenterLactic Acid Whole [id number] 03:22:23 Test Item Value Reference Range Interpretation Comments LACTIC ACID (test code = 4.52 mmol/L 0.50-2.20 H 2729218714) Lab Interpretation (test code = Abnormal 83354-7) [facility] METABOLIC PANEL (NA, K, CL, CO2, GLUCOSE, BUN, CREATININE, CA)2021-11-28 11:13:09 Test Item Value Reference Range Interpretation Comments NA (test code = 137 mmol/L 135-145 8021160329) K (test code = 4.8 mmol/L 3.5-5.0 6234629866) CL (test code = 101 mmol/L 98-108 0605013232) CO2 TOTAL (test code = 24 mmol/L 23-31 7046090026) AGAP (test code = 2-16 1043178134) BUN (test code = 17 mg/dL 7-23 7067793960) GLUCOSE (test code = 323 mg/dL 70-110 H 8061897394) CREATININE (test code = 0.56 mg/dL 0.60-1.25 L 4347478661) CALCIUM (test code = 9.6 mg/dL 8.6-10.6 6464459098) eGFR (test code = mL/min/1.73m2 9043979273) ARPITA (test code = ARPITA) Association of [...] tests). Lab Interpretation Abnormal (test code = 20622-4) [facility] WITH [id number] 10:49:07 Test Item Value Reference Range Interpretation [...] RDW-SD (test code = 46.7 fL 38.5-51.6 93282-0) RDW-CV (test code = 14.5 % 12.1-15.4 788-0) PLT (test code = See_Comment H [Automated 777-3) message] The sy stem which generated this result transmitted reference range : 150 - 328 10*3/ ?L. The reference r boubacar was not used to interpret this result as normal/abnormal . MPV (test code = 10.2 fL 9.8-13.0 55768-7) NRBC/100 WBC (test See_Comment [Automat ed code = 9334814788) message] The system which generated this result transmitted reference range : 0.0 - 10.0 /100 WBCs. The refer ence range was not u sed to interpret th is result as normal/abnormal . NRBC x10^3 (test code <0.01 See_Comment [Auto mated = 6611357721) message] The s ystem which generated this result transmitted reference range : 10*3/?L. The reference range was not used to interpret this result as normal/abnormal . GRAN MAT (NEUT) % 70.2 % (test code = 770-8) IMM GRAN % (test code 0.80 % = 4345438731) LYMPH % (test code = 18.0 % 736-9) MONO % (test code = 8.5 % 5905-5) EOS % (test code = 2.1 % 713-8) BASO % (test code = 0.4 % 706-2) GRAN MAT x10^3(ANC) 7.63 10*3/uL 1.99-6.95 H (test code = 0526213686) IMM GRAN x10^3 (test 0.09 10*3/uL 0.00-0.06 H code = 1130489538) LYMPH x10^3 (test code 1.96 10*3/uL 1.09-3.23 = 731-0) MONO x10^3 (test code 0.92 10*3/uL 0.36-1.02 = 742-7) EOS x10^3 (test code = 0.23 10*3/uL 0.06-0.53 711-2) BASO x10^3 (test code 0.04 10*3/uL 0.01-0.09 = 704-7) Lab Interpretation Abnormal (test code = 75486-6) [facility] METABOLIC PANEL (NA, K, CL, CO2, GLUCOSE, BUN, CREATININE, CA)2021-11-27 09:48:58 Test Item Value Reference Range Interpretation Comments NA (test code = 135 mmol/L 135-145 3851960945) K (test code = 4.7 mmol/L 3.5-5.0 9932394599) CL (test code = 101 mmol/L 98-108 3949235503) CO2 TOTAL (test code = 23 mmol/L 23-31 0429878699) AGAP (test code = 2-16 5419354143) BUN (test code = 18 mg/dL 7-23 7504685365) GLUCOSE (test code = 346 mg/dL 70-110 H 5565234437) CREATININE (test code = 0.64 mg/dL 0.60-1.25 2610534870) CALCIUM (test code = 9.1 mg/dL 8.6-10.6 0386748048) eGFR (test code = mL/min/1.73m2 5297798428) ARPITA (test code = ARPITA) Association of [...] tests). Lab Interpretation Abnormal (test code = 08192-4) [facility] WITH [id number] 09:06:55 Test Item Value Reference Range Interpretation Comments WBC (test code = See_Comment [Automated 3435-2) message] The sy stem which generated this [...] RDW-SD (test code = 47.7 fL 38.5-51.6 61397-8) RDW-CV (test code = 14.6 % 12.1-15.4 788-0) PLT (test code = See_Comment [Automated 777-3) message] The sy stem which generated this result transmitted reference range : 150 - 328 10*3/ ?L. The reference r boubacar was not used to interpret this result as normal/abnormal . MPV (test code = 9.9 fL 9.8-13.0 36947-4) NRBC/100 WBC (test See_Comment [Automat ed code = 4881176866) message] The system which generated this result transmitted reference range : 0.0 - 10.0 /100 WBCs. The refer ence range was not u sed to interpret th is result as normal/abnormal . NRBC x10^3 (test code <0.01 See_Comment [Auto mated = 0208348518) message] The s ystem which generated this result transmitted reference range : 10*3/?L. The reference range was not used to interpret this result as normal/abnormal . GRAN MAT (NEUT) % 62.6 % (test code = 770-8) IMM GRAN % (test code 1.30 % = 7218431699) LYMPH % (test code = 23.2 % 736-9) MONO % (test code = 9.6 % 5905-5) EOS % (test code = 2.9 % 713-8) BASO % (test code = 0.4 % 706-2) GRAN MAT x10^3(ANC) 5.85 10*3/uL 1.99-6.95 (test code = 2166035390) IMM GRAN x10^3 (test 0.12 10*3/uL 0.00-0.06 H code = 7199071729) LYMPH x10^3 (test code 2.17 10*3/uL 1.09-3.23 = 731-0) MONO x10^3 (test code 0.90 10*3/uL 0.36-1.02 = 742-7) EOS x10^3 (test code = 0.27 10*3/uL 0.06-0.53 711-2) BASO x10^3 (test code 0.04 10*3/uL 0.01-0.09 = 704-7) Lab Interpretation Abnormal (test code = 36149-8) [facility] CULTURE [id number] 02:01:46 Test Item Value Reference Range Interpretation Comments Blood Culture-Aerobic No organisms No growth Previo us (test code = 57977-4) isolated prelim inary verified result was Culture [...] Culture-Anaerobic isolated preliminar y (test code = 26318-2) verifi ed result was Culture In Progress [...] CDT Lab Interpretation Normal (test code = 77346-4) [facility] CULTURE [id number] 02:01:46 Test Item Value Reference Range Interpretation Comments Blood Culture-Aerobic No organisms No growth Previo us (test code = 81706-3) isolated prelim inary verified result was Culture [...] Culture-Anaerobic isolated preliminar y (test code = 41174-4) verifi ed result was Culture In Progress [...] CDT Lab Interpretation Normal (test code = 92227-5) [facility] [id number] 12:18:49 Test Item Value Reference Range Interpretation Comments NT-proBNP (test code 117 pg/mL See_Comment [Autom ated = 5793864890) message] The system which generated this result transmitted reference range : <=125. The reference range was not used to interpret this result as normal/abnormal . ARPITA (test code = ARPITA) Biotin has been reported to cause a negative bias, interpret results relative to patient's use of biotin. Lab Interpretation Normal (test code = 19394-1) [facility]OL[facility] (85806)2021-11-24 12:10:25 Test Item Value Reference Range Interpretation Comments NA (test code = 137 mmol/L 135-145 0480010796) K (test code = 4.6 mmol/L 3.5-5.0 8352869995) CL (test code = 108 mmol/L 98-108 4343290458) CO2 TOTAL (test code = 20 mmol/L 23-31 L 3826599838) AGAP (test code = 2-16 7750357589) BUN (test code = 12 mg/dL 7-23 2743245295) GLUCOSE (test code = 186 mg/dL 70-110 H [id number]) CREATININE (test code = 0.49 mg/dL 0.60-1.25 L 9839875225) TOTAL BILI (test code = 0.7 mg/dL 0.1-1.3 5372645390) CALCIUM (test code = 8.7 mg/dL 8.6-10.6 4837395401) T PROTEIN (test code = 6.9 g/dL 6.3-8.2 9878651317) ALBUMIN (test code = 3.7 g/dL 3.5-5.0 5532247326) ALK PHOS (test code = 114 U/L 34-122 0205064821) ALTv (test code = 75 U/L 5-50 H 1742-6) AST(SGOT) (test code = 27 U/L 13-40 3638668097) eGFR (test code = mL/min/1.73m2 2413320462) ARPITA (test code = ARPIAT) Association of Glomerular Filtration Rate (GFR) and [...] tests). Lab Interpretation Abnormal (test code = 15240-8) [facility] WITH [id number] 11:14:25 Test Item Value Reference Range Interpretation [...] RDW-SD (test code = 48.7 fL 38.5-51.6 90127-9) RDW-CV (test code = 15.0 % 12.1-15.4 788-0) PLT (test code = See_Comment [Automated 777-3) message] The sy stem which generated this result transmitted reference range : 150 - 328 10*3/ ?L. The reference r boubacar was not used to interpret this result as normal/abnormal . MPV (test code = 10.4 fL 9.8-13.0 90704-1) NRBC/100 WBC (test See_Comment [Automat ed code = 4488978993) message] The system which generated this result transmitted reference range : 0.0 - 10.0 /100 WBCs. The refer ence range was not u sed to interpret th is result as normal/abnormal . NRBC x10^3 (test code <0.01 See_Comment [Auto mated = 6796695100) message] The s ystem which generated this result transmitted reference range : 10*3/?L. The reference range was not used to interpret this result as normal/abnormal . GRAN MAT (NEUT) % 65.5 % (test code = 770-8) IMM GRAN % (test code 0.80 % = 7197623686) LYMPH % (test code = 20.9 % 736-9) MONO % (test code = 9.7 % 5905-5) EOS % (test code = 2.7 % 713-8) BASO % (test code = 0.4 % 706-2) GRAN MAT x10^3(ANC) 5.41 10*3/uL 1.99-6.95 (test code = 6432181630) IMM GRAN x10^3 (test 0.07 10*3/uL 0.00-0.06 H code = 7382069716) LYMPH x10^3 (test code 1.73 10*3/uL 1.09-3.23 = 731-0) MONO x10^3 (test code 0.80 10*3/uL 0.36-1.02 = 742-7) EOS x10^3 (test code = 0.22 10*3/uL 0.06-0.53 711-2) BASO x10^3 (test code 0.03 10*3/uL 0.01-0.09 = 704-7) Lab Interpretation Abnormal (test code = 71736-9) [facility] [id number] 13:16:44 Test Item Value Reference Range Interpretation Comments NT-proBNP (test code 157 pg/mL See_Comment H [Autom ated = 8741608436) message] The system which generated this result transmitted reference range : <=125. The reference range was not used to interpret this result as normal/abnormal . ARPITA (test code = ARPITA) Biotin has been reported to cause a negative bias, interpret results relative to patient's use of biotin. Lab Interpretation Abnormal (test code = 36250-3) [facility]OL[facility] (03451)2021-11-23 13:08:45 Test Item Value Reference Range Interpretation Comments NA (test code = 141 mmol/L 135-145 1227008529) K (test code = 4.2 mmol/L 3.5-5.0 7264557575) CL (test code = 110 mmol/L 98-108 H 4807606360) CO2 TOTAL (test code = 24 mmol/L 23-31 8858407164) AGAP (test code = 2-16 4372417265) BUN (test code = 11 mg/dL 7-23 9160267921) GLUCOSE (test code = 142 mg/dL 70-110 H 2327519964) CREATININE (test code = 0.61 mg/dL 0.60-1.25 4690941220) TOTAL BILI (test code = 0.7 mg/dL 0.1-1.4 8686730571) CALCIUM (test code = 8.5 mg/dL 8.6-10.6 L 2724214316) T PROTEIN (test code = 6.7 g/dL 6.3-8.2 4365423742) ALBUMIN (test code = 3.6 g/dL 3.5-5.0 0028574591) ALK PHOS (test code = 120 U/L 34-122 5029426676) ALTv (test code = 88 U/L 5-50 H 1742-6) AST(SGOT) (test code = 27 U/L 13-40 7486464930) eGFR (test code = mL/min/1.73m2 8646275331) ARPITA (test code = ARPITA) Association of [...] tests). Lab Interpretation Abnormal (test code = 55884-5) [facility] 13:08:45 Test Item Value Reference Range Interpretation Comments MAGNESIUM (test code = 5248107675) 1.7 mg/dL 1.7-2.4 Lab Interpretation (test code = Normal 84357-8) [facility] WITH [id number] 11:57:56 Test Item Value Reference Range Interpretation Comments WBC (test code = See_Comment [Automated 8490-2) message] The sy stem which generated this result transmitted reference range : 4.20 - 10.70 10*3/?L. The reference range was not used to interpret this result as normal/abnormal . RBC (test code = See_Comment [Automated 919-8) message] The sy stem which generated this [...] RDW-SD (test code = 48.9 fL 38.5-51.6 93128-4) RDW-CV (test code = 14.9 % 12.1-15.4 788-0) PLT (test code = See_Comment [Automated 077-3) message] The sy stem which generated this result transmitted reference range : 150 - 328 10*3/ ?L. The reference r boubacar was not used to interpret this result as normal/abnormal . MPV (test code = 9.4 fL 9.8-13.0 L 29212-9) NRBC/100 WBC (test See_Comment [Automat ed code = 9306814432) message] The system which generated this result transmitted reference range : 0.0 - 10.0 /100 WBCs. The refer ence range was not u sed to interpret th is result as normal/abnormal . NRBC x10^3 (test code <0.01 See_Comment [Auto mated = 0405410595) message] The s ystem which generated this result transmitted reference range : 10*3/?L. The reference range was not used to interpret this result as normal/abnormal . GRAN MAT (NEUT) % 63.9 % (test code = 770-8) IMM GRAN % (test code 0.70 % = 1715317454) LYMPH % (test code = 22.7 % 736-9) MONO % (test code = 9.6 % 5905-5) EOS % (test code = 2.7 % 713-8) BASO % (test code = 0.4 % 706-2) GRAN MAT x10^3(ANC) 4.75 10*3/uL 1.99-6.95 (test code = 8048807683) IMM GRAN x10^3 (test 0.05 10*3/uL 0.00-0.06 code = 3886222178) LYMPH x10^3 (test code 1.69 10*3/uL 1.09-3.23 = 731-0) MONO x10^3 (test code 0.71 10*3/uL 0.36-1.02 = 742-7) EOS x10^3 (test code = 0.20 10*3/uL 0.06-0.53 711-2) BASO x10^3 (test code 0.03 10*3/uL 0.01-0.09 = 704-7) Lab Interpretation Abnormal (test code = 28812-2) [facility] B12, [id number] 19:18:39 Test Item Value Reference Range Interpretation Comments VIT B12 (test code = 249 pg/mL 240-930 3620851553) ARPITA (test code = ARPITA) Biotin has been reported to cause a positive bias, interpret results relative to patient's use of biotin. Lab Interpretation (test Normal code = 44701-4) [facility] B12, [id number] 19:18:39 Test Item Value Reference Range Interpretation Comments VIT B12 (test code = 249 pg/mL 240-930 8116709321) ARPITA (test code = ARPITA) Biotin has been reported to cause a positive bias, interpret results relative to patient's use of biotin. Lab Interpretation (test Normal code = 56929-1) [facility] Center[facility] D, [id number] 17:30:28 Test Item Value Reference Range Interpretation Comments VIT D 25OH (test code = 16 ng/mL 25-80 L 07501-6) ARPITA (test code = ARPITA) Deficiency: <20 ng/mLInsufficiency: 20-24 ng/mLOptimal: 25-80 ng/mL Lab Interpretation (test Abnormal code = 55816-8) [facility], [id number] 17:30:28 Test Item Value Reference Range Interpretation Comments VIT D 25OH (test code = 16 ng/mL 25-80 L 17495-6) ARPITA (test code = ARPITA) Deficiency: <20 ng/mLInsufficiency: 20-24 ng/mLOptimal: 25-80 ng/mL Lab Interpretation (test Abnormal code = 15528-9) [facility]PROCALCITONIN2022-05-11 16:07:32 Test Item Value Reference Interpretation Comments Range Procalcitonin (test 0.04 ng/mL See_Comment [Automa lester code = 8757890005) message] The system which generated this result [...] lung abscess/empyema. For further information please refer to:[email or web address] Lab Interpretation Normal (test code = 93860-3) [facility] CenterPROCALCITONIN2022-05-11 16:07:32 Test Item Value Reference Range Interpretation Comments Procalcitonin (test 0.04 ng/mL <0.07 code = 4492045362) ARPITA (test code = ARPITA) INTERPRETATION OF [...] lung abscess/empyema. For further information please refer to:[email or web address] Lab Interpretation Normal (test code = 09988-5) [facility] CenterSEDIMENTATION [id number] 13:21:10 Test Item Value Reference Range Interpretation Comments ESR (test code = See_Comment H [Automated message] 6833395212) The system [employer] generated this result transmitted ref erence range: 0 - 10 m m/HR. The reference r boubacar was not used to interpret this result as normal/abnor mal. Lab Interpretation (test Abnormal code = 82685-9) [facility] CenterGLYCOSYLATED HEMOGLOBIN (A1C)2021-11-22 13:12:27 Test Item Value Reference Range Interpretation Comments HGB A1C (test code = 6.3 % 4.0-5.7 H 4548-4) ARPITA (test code = ARPITA) Reference RangesNormal: <5.7%Prediabetes: 5.7 - 6.4%Diabetes: > 6.5% Lab Interpretation (test Abnormal code = 27855-0) [facility]N-[facility]AL [id number] 11:53:14 Test Item Value Reference Range Interpretation Comments NT-proBNP (test code 16 pg/mL See_Comment [Autom ated = 9320518555) message] The system which generated this result transmitted reference range : <=125. The reference range was not used to interpret this result as normal/abnormal . ARPITA (test code = ARPITA) Biotin has been reported to cause a negative bias, interpret results relative to patient's use of biotin. Lab Interpretation Normal (test code = 06051-3) [facility]. METABOLIC PANEL (84379)2021-11-22 11:44:55 Test Item Value Reference Range Interpretation Comments NA (test code = 142 mmol/L 135-145 2034768034) K (test code = 3.9 mmol/L 3.5-5.0 0720969132) CL (test code = 108 mmol/L 98-108 7888820711) CO2 TOTAL (test code = 24 mmol/L 23-31 4378107521) AGAP (test code = 2-16 6113625288) BUN (test code = 11 mg/dL 7-23 2648976217) GLUCOSE (test code = 205 mg/dL 70-110 H 5837571740) CREATININE (test code = 0.71 mg/dL 0.60-1.25 4207780424) TOTAL BILI (test code = 0.7 mg/dL 0.1-1.3 4626075819) CALCIUM (test code = 8.9 mg/dL 8.6-10.6 0166982742) T PROTEIN (test code = 7.3 g/dL 6.3-8.2 7741615869) ALBUMIN (test code = 3.8 g/dL 3.5-5.0 4875820600) ALK PHOS (test code = 135 U/L 34-122 H 2025083741) ALTv (test code = 120 U/L 5-50 H 1742-6) AST(SGOT) (test code = 33 U/L 13-40 2215586862) eGFR (test code = mL/min/1.73m2 7737845624) ARPITA (test code = ARPITA) Association of [...] tests). Lab Interpretation Abnormal (test code = 46957-6) [facility]MAG[facility]UM2022-[facility]-11 11:44:55 Test Item Value Reference Range Interpretation Comments MAGNESIUM (test code = 4994037069) 1.6 mg/dL 1.7-2.4 L Lab Interpretation (test code = Abnormal 79080-2) [facility] CenterPHOSPHORUS2022-05-11 11:44:35 Test Item Value Reference Range Interpretation Comments PHOSPHORUS (test code = 7740952721) 4.1 mg/dL 2.5-5.0 Lab Interpretation (test code = Normal 21611-2) [facility] CenterCREATINE [id number] 11:44:15 Test Item Value Reference Range Interpretation Comments CK (test code = 5917286358) 50 U/L 33-194 Lab Interpretation (test code = Normal 44613-5) [facility] CenterCREATINE [id number] 11:44:15 Test Item Value Reference Range Interpretation Comments CK (test code = 5410551441) 50 U/L 33-194 Lab Interpretation (test code = Normal 98212-1) [facility] CenterCB WITH [id number] 11:28:14 Test Item Value Reference Range Interpretation Comments WBC (test code = See_Comment [Automated 9790-2) message] The sy stem which generated this [...] RDW-SD (test code = 48.4 fL 38.5-51.6 92566-9) RDW-CV (test code = 15.1 % 12.1-15.4 788-0) PLT (test code = See_Comment [Automated 777-3) message] The sy stem which generated this result transmitted reference range : 150 - 328 10*3/ ?L. The reference r boubacar was not used to interpret this result as normal/abnormal . MPV (test code = 10.2 fL 9.8-13.0 35484-3) NRBC/100 WBC (test See_Comment [Automat ed code = 9554213188) message] The system which generated this result transmitted reference range : 0.0 - 10.0 /100 WBCs. The refer ence range was not u sed to interpret th is result as normal/abnormal . NRBC x10^3 (test code <0.01 See_Comment [Auto mated = 9909198650) message] The s ystem which generated this result transmitted reference range : 10*3/?L. The reference range was not used to interpret this result as normal/abnormal . GRAN MAT (NEUT) % 67.8 % (test code = 770-8) IMM GRAN % (test code 0.80 % = 8995575050) LYMPH % (test code = 19.8 % 736-9) MONO % (test code = 8.7 % 5905-5) EOS % (test code = 2.7 % 713-8) BASO % (test code = 0.2 % 706-2) GRAN MAT x10^3(ANC) 6.56 10*3/uL 1.99-6.95 (test code = 3543276890) IMM GRAN x10^3 (test 0.08 10*3/uL 0.00-0.06 H code = 6670881303) LYMPH x10^3 (test code 1.91 10*3/uL 1.09-3.23 = 731-0) MONO x10^3 (test code 0.84 10*3/uL 0.36-1.02 = 742-7) EOS x10^3 (test code = 0.26 10*3/uL 0.06-0.53 711-2) BASO x10^3 (test code <0.03 0.01-0.09 = 704-7) Lab Interpretation Abnormal (test code = 11741-7) [facility] [id number] 10:56:10 Test Item Value Reference Range Interpretation Comments IRON (test code = 9825434629) 46 ug/dL 50-160 L TIBC (test code = 4192305173) 299 ug/dL 250-410 % FE SAT (test code = 2475912726) 15 % 20-50 L Lab Interpretation (test code = Abnormal 73426-2) [facility] [id number] 10:56:10 Test Item Value Reference Range Interpretation Comments IRON (test code = 0985005936) 46 ug/dL 50-160 L TIBC (test code = 6065379963) 299 ug/dL 250-410 % FE SAT (test code = 4128790226) 15 % 20-50 L Lab Interpretation (test code = Abnormal 68266-9) [facility] [id number] 10:13:03 Test Item Value Reference Range Interpretation Comments FERRITIN (test code = 89.2 ng/mL 18-464 7448396170) ARPITA (test code = ARPITA) Biotin has been reported to cause a negative bias, interpret results relative to patient's use of biotin. Lab Interpretation (test Normal code = 37199-1) [facility] [id number] 10:13:03 Test Item Value Reference Range Interpretation Comments FERRITIN (test code = 89.2 ng/mL 18.0-464.0 2351790556) ARPITA (test code = ARPITA) Biotin has been reported to cause a negative bias, interpret results relative to patient's use of biotin. Lab Interpretation (test Normal code = 28152-7) [facility] CenterTHYROID STIMULATING [id number] 10:09:06 Test Item Value Reference Range Interpretation Comments TSH (test code = See_Comment [Automated message] 0905323306) The system [employer] generated this result transmitted ref erence range: 0.45 - 4 .70 mIU/L. The refe rence range was not u sed to interpret this result as normal/abnor mal. Lab Interpretation (test Normal code = 79135-4) [facility] CenterTHY[facility]ID STIMULATING [id number] 10:09:06 Test Item Value Reference Range Interpretation Comments TSH (test code = See_Comment [Automated message] 8337623511) The system [employer] generated this result transmitted ref erence range: 0.45 - 4 .70 mIU/L. The refe rence range was not u sed to interpret this result as normal/abnor mal. Lab Interpretation (test Normal code = 77055-1) [facility]AL [id number] 09:47:44 Test Item Value Reference Range Interpretation Comments NT-proBNP (test code 12 pg/mL See_Comment [Autom ated = 9134488810) message] The system which generated this result transmitted reference range : <=125. The reference range was not used to interpret this result as normal/abnormal . ARPITA (test code = ARPITA) Biotin has been reported to cause a negative bias, interpret results relative to patient's use of biotin. Lab Interpretation Normal (test code = 08602-2) [facility] CenterLIPID PANEL (85942)(TOTAL CHOLESTEROL, TRIGLYCERIDES, HDL)2021-11-22 09:35:58 Test Item Value Reference Range Interpretation Comments CHOL (test code = 250 mg/dL 120-200 H 1777489126) HDL (test code = 34 mg/dL See_Comment L [Automated message] 9441760688) The system [employer] generated this result transmit lester reference range : >=40. The refer ence range was not u sed to interpret th is result as normal/abnormal . HDLC RATIO (test code = See_Comment H [Au tomated message] 5458317128) The system [employer] generated this result transmit lester reference range : <=5.0. The refe rence range was not u sed to interpret th is result as normal/abnormal . TRIG (test code = 394 mg/dL 30-170 H 9326361827) LDL CHOL (test code = 137 mg/dL See_Comment [Auto mated message] 90071-4) The system [employer] generated this result transmit lester reference range : <=160. The refe rence range was not u sed to interpret th is result as normal/abnormal . VLDL (test code = 79 mg/dL 5-60 H 8919321760) Lab Interpretation (test Abnormal code = 44341-5) [facility] CenterLIP[facility] PANEL (47732)(TOTAL CHOLESTEROL, TRIGLYCERIDES, HDL)2021-11-22 09:35:58 Test Item Value Reference Range Interpretation Comments CHOL (test code = 250 mg/dL 120-200 H 6533342731) HDL (test code = 34 mg/dL >40 L 5893654735) HDLC RATIO (test code = See_Comment H [Au tomated message] 6990706480) The system [employer] generated this result transmit lester reference range : <=5.0. The refe rence range was not u sed to interpret th is result as normal/abnormal . TRIG (test code = 394 mg/dL 30-170 H 5724904511) LDL CHOL (test code = 137 mg/dL See_Comment [Auto mated message] 68621-3) The system [employer] generated this result transmit lester reference range : <=160. The refe rence range was not u sed to interpret th is result as normal/abnormal . VLDL (test code = 79 mg/dL 5-60 H 5811500689) Lab Interpretation (test Abnormal code = 88374-7) [facility]MAG[facility]UM2022-[facility]-11 09:35:42 Test Item Value Reference Range Interpretation Comments MAGNESIUM (test code = 2368070631) 1.5 mg/dL 1.7-2.4 L Lab Interpretation (test code = Abnormal 28585-5) [facility]PHOSPHORUS2022-[facility]-11 09:35:42 Test Item Value Reference Range Interpretation Comments PHOSPHORUS (test code = 2461920066) 3.3 mg/dL 2.5-5.0 Lab Interpretation (test code = Normal 93547-1) [facility] CenterCOMP[facility] MET[facility]OLIC PANEL (29075)2021-11-22 01:29:09 Test Item Value Reference Range Interpretation Comments NA (test code = 142 mmol/L 135-145 0672192099) K (test code = 3.7 mmol/L 3.5-5.0 8605904819) CL (test code = 103 mmol/L 98-108 1638043533) CO2 TOTAL (test code = 27 mmol/L 23-31 1401893465) AGAP (test code = 2-16 4654915512) BUN (test code = 11 mg/dL 7-23 5701000957) GLUCOSE (test code = 166 mg/dL 70-110 H 5791903946) CREATININE (test code = 0.61 mg/dL 0.60-1.25 8994582733) TOTAL BILI (test code = 0.8 mg/dL 0.1-1.3 8122378826) CALCIUM (test code = 9.3 mg/dL 8.6-10.6 8154411971) T PROTEIN (test code = 7.4 g/dL 6.3-8.2 7393412923) ALBUMIN (test code = 4.0 g/dL 3.5-5.0 0362130990) ALK PHOS (test code = 164 U/L 34-122 H 0996634075) ALTv (test code = 149 U/L 5-50 H 1742-6) AST(SGOT) (test code = 29 U/L 13-40 8635750118) eGFR (test code = mL/min/1.73m2 1993276701) ARPITA (test code = ARPITA) Association of [...] tests). Lab Interpretation Abnormal (test code = 23139-2) [facility] CenterACTIVATED PARTIAL THRMPLAS [id number] 01:23:46 Test Item Value Reference Range Interpretation Comments APTT Patient (test See_Comment [Automat ed code = 3173-2) message] The system which generated this result transmitted reference range : 23 - 38 Seconds . The reference range was not used to interpr et this result as normal/abnormal . ARPITA (test code = ARPITA) The [facility] patient population mean normal value for aPTT is 30 seconds. Lab Interpretation Normal (test code = 01867-8) [facility] CenterPROTHROMBIN TIME / [id number] 01:21:51 Test Item Value Reference Range Interpretation [...] tions. Lab Interpretation (test Normal code = 96330-9) [facility] WITH [id number] 01:15:28 Test Item Value Reference Range Interpretation [...] RDW-SD (test code = 48.4 fL 38.5-51.6 60080-9) RDW-CV (test code = 15.1 % 12.1-15.4 788-0) PLT (test code = See_Comment [Automated 777-3) message] The sy stem which generated this result transmitted reference range : 150 - 328 10*3/ ?L. The reference r boubacar was not used to interpret this result as normal/abnormal . MPV (test code = 10.1 fL 9.8-13.0 06447-7) NRBC/100 WBC (test See_Comment [Automat ed code = 6530556152) message] The system which generated this result transmitted reference range : 0.0 - 10.0 /100 WBCs. The refer ence range was not u sed to interpret th is result as normal/abnormal . NRBC x10^3 (test code <0.01 See_Comment [Auto mated = 0110738681) message] The s ystem which generated this result transmitted reference range : 10*3/?L. The reference range was not used to interpret this result as normal/abnormal . GRAN MAT (NEUT) % 72.7 % (test code = 770-8) IMM GRAN % (test code 0.60 % = 6960810863) LYMPH % (test code = 15.5 % 736-9) MONO % (test code = 8.2 % 5905-5) EOS % (test code = 2.6 % 713-8) BASO % (test code = 0.4 % 706-2) GRAN MAT x10^3(ANC) 7.83 10*3/uL 1.99-6.95 H (test code = 7871087640) IMM GRAN x10^3 (test 0.07 10*3/uL 0.00-0.06 H code = 0028912726) LYMPH x10^3 (test code 1.67 10*3/uL 1.09-3.23 = 731-0) MONO x10^3 (test code 0.88 10*3/uL 0.36-1.02 = 742-7) EOS x10^3 (test code = 0.28 10*3/uL 0.06-0.53 711-2) BASO x10^3 (test code 0.04 10*3/uL 0.01-0.09 = 704-7) Lab Interpretation Abnormal (test code = 47646-4) [facility] CenterLactic Acid Whole [id number] 01:14:32 Test Item Value Reference Range Interpretation Comments LACTIC ACID (test code = 1.86 mmol/L 0.50-2.20 0799373754) Lab Interpretation (test code = Normal 06008-3) [facility] CenterCHEM [id number] 12:58:00 Test Item Value Reference Range Interpretation Comments Glucose Lvl (test code = Glucose Lvl) 228 70-99 [facility]2022-04-12 12:58:00 Test Item Value Reference Range Interpretation Comments BUN (test code = BUN) 23 7-22 [facility]2022-04-12 12:58:00 Test Item Value Reference Range Interpretation Comments Creatinine Lvl (test code = Creatinine 0.78 0.50-1.40 Lvl) [facility]2022-04-12 12:58:00 Test Item Value Reference Range Interpretation Comments Sodium Lvl (test code = Sodium Lvl) 138 135-145 [place] 988842-04-12 12:58:00 Test Item Value Reference Range Interpretation Comments Potassium Lvl (test code = Potassium 4.6 3.5-5.1 Lvl) [place] 988842-04-12 12:58:00 Test Item Value Reference Range Interpretation Comments Chloride Lvl (test code = Chloride Lvl) 108 95-109 [place] 988842-04-12 12:58:00 Test Item Value Reference Range Interpretation Comments CO2 (test code = CO2) 23 24-32 [place] 988842-04-12 12:58:00 Test Item Value Reference Range Interpretation Comments Calcium Lvl (test code = Calcium Lvl) 9.0 8.5-10.5 [place] 988842-04-12 12:58:00 Test Item Value Reference Range Interpretation Comments AGAP (test code = AGAP) 11.6 10.0-20.0 [place] 988842-04-12 12:58:00 Test Item Value Reference Range Interpretation Comments eGFR (test code = eGFR) 116 [place] 927472-04-12 12:58:00 Test Item Value Reference Range Interpretation Comments WBC (test code = WBC) 10.5 3.7-10.4 [place] 927472-04-12 12:58:00 Test Item Value Reference Range Interpretation Comments RBC (test code = RBC) 5.48 4.70-6.10 [place] 927472-04-12 12:58:00 Test Item Value Reference Range Interpretation Comments Hgb (test code = Hgb) 16.0 14.0-18.0 [place] [address]-04-12 12:58:00 Test Item Value Reference Range Interpretation Comments Hct (test code = Hct) 49.8 42.0-54.0 [place] [address]-04-12 12:58:00 Test Item Value Reference Range Interpretation Comments MCV (test code = MCV) 90.8 80.0-94.0 [place] [address]-04-12 12:58:00 Test Item Value Reference Range Interpretation Comments MCH (test code = MCH) 29.1 pg 27.0-31.0 [place] 927472-04-12 12:58:00 Test Item Value Reference Range Interpretation Comments MCHC (test code = MCHC) 32.1 32.0-36.0 [place] [address]-04-12 12:58:00 Test Item Value Reference Range Interpretation Comments RDW (test code = RDW) 15.5 11.5-14.5 [place] [address]-04-12 12:58:00 Test Item Value Reference Range Interpretation Comments Platelet (test code = Platelet) 312 133-450 [place] 927472-04-12 12:58:00 Test Item Value Reference Range Interpretation Comments MPV (test code = MPV) 8.3 7.4-10.4 [place] [address]-04-12 12:58:00 Test Item Value Reference Range Interpretation Comments PT (test code = PT) 12.9 s 12.0-14.7 [place] [address]-04-12 12:58:00 Test Item Value Reference Range Interpretation Comments INR (test code = INR) 0.98 1 0.85-1.17 [place] [address]-04-12 12:58:00 Test Item Value Reference Range Interpretation Comments PTT (test code = PTT) 27.3 s 22.9-35.8 [place] [address]-04-12 12:58:00 Test Item Value Reference Range Interpretation Comments Segs (test code = Segs) 71.2 45.0-75.0 [place] [address]-04-12 12:58:00 Test Item Value Reference Range Interpretation Comments Lymphocytes (test code = Lymphocytes) 21.1 20.0-40.0 [place] [address]-04-12 12:58:00 Test Item Value Reference Range Interpretation Comments Monocytes (test code = Monocytes) 6.8 2.0-12.0 [place] [address]-04-12 12:58:00 Test Item Value Reference Range Interpretation Comments Eosinophils (test code = 0.1 See_Comment [A utomated message] The Eosinophils) system which ge nerated this result tra nsmitted reference range : <=4.0. The reference r boubacar was not used to int erpret this result as normal/abnormal . [place] 927472-04-12 12:58:00 Test Item Value Reference Range Interpretation Comments Basophils (test code = 0.8 See_Comment [Aut omated message] The Basophils) system which ge nerated this result tra nsmitted reference range : <=1.0. The reference r boubacar was not used to int erpret this result as normal/abnormal . [place] 927472-04-12 12:58:00 Test Item Value Reference Range Interpretation Comments Neutrophils # (test code = Neutrophils 7.5 1.5-8.1 #) [place] 927472-04-12 12:58:00 Test Item Value Reference Range Interpretation Comments Lymphocytes # (test code = Lymphocytes 2.2 1.0-5.5 #) [place] 927472-04-12 12:58:00 Test Item Value Reference Range Interpretation Comments Monocytes # (test code 0.7 See_Comment [Aut omated message] The = Monocytes #) system which generated this result tra nsmitted reference range : <=0.8. The reference r boubacar was not used to int erpret this result as normal/abnormal . [place] 927472-04-12 12:58:00 Test Item Value Reference Range Interpretation Comments Basophils # (test code 0.1 See_Comment [Aut omated message] The = Basophils #) system which generated this result tra nsmitted reference range : <=0.2. The reference r boubacar was not used to int erpret this result as normal/abnormal . [place] 988842-04-12 12:58:00 Test Item Value Reference Range Interpretation Comments Glucose Lvl (test code = Glucose Lvl) 228 70-99 [place] 988842-04-12 12:58:00 Test Item Value Reference Range Interpretation Comments BUN (test code = BUN) 23 7-22 [place] [address]-04-12 12:58:00 Test Item Value Reference Range Interpretation Comments Creatinine Lvl (test code = Creatinine 0.78 0.50-1.40 Lvl) [place] 988842-04-12 12:58:00 Test Item Value Reference Range Interpretation Comments Sodium Lvl (test code = Sodium Lvl) 138 135-145 [place] 988842-04-12 12:58:00 Test Item Value Reference Range Interpretation Comments Potassium Lvl (test code = Potassium 4.6 3.5-5.1 Lvl) [place] 988842-04-12 12:58:00 Test Item Value Reference Range Interpretation Comments Chloride Lvl (test code = Chloride Lvl) 108 95-109 [place] 988842-04-12 12:58:00 Test Item Value Reference Range Interpretation Comments CO2 (test code = CO2) 23 24-32 [place]88842-04-12 12:58:00 Test Item Value Reference Range Interpretation Comments Calcium Lvl (test code = Calcium Lvl) 9.0 8.5-10.5 [place] 988842-04-12 12:58:00 Test Item Value Reference Range Interpretation Comments AGAP (test code = AGAP) 11.6 10.0-20.0 [place] 988842-04-12 12:58:00 Test Item Value Reference Range Interpretation Comments eGFR (test code = eGFR) 116 [place] 927472-04-12 12:58:00 Test Item Value Reference Range Interpretation Comments WBC (test code = WBC) 10.5 3.7-10.4 [place] 927472-04-12 12:58:00 Test Item Value Reference Range Interpretation Comments RBC (test code = RBC) 5.48 4.70-6.10 [place] [address]-04-12 12:58:00 Test Item Value Reference Range Interpretation Comments Hgb (test code = Hgb) 16.0 14.0-18.0 [place] [address]-04-12 12:58:00 Test Item Value Reference Range Interpretation Comments Hct (test code = Hct) 49.8 42.0-54.0 [place] [address]-04-12 12:58:00 Test Item Value Reference Range Interpretation Comments MCV (test code = MCV) 90.8 80.0-94.0 [place] [address]-04-12 12:58:00 Test Item Value Reference Range Interpretation Comments MCH (test code = MCH) 29.1 pg 27.0-31.0 [place] 927472-04-12 12:58:00 Test Item Value Reference Range Interpretation Comments MCHC (test code = MCHC) 32.1 32.0-36.0 [place] [address]-04-12 12:58:00 Test Item Value Reference Range Interpretation Comments RDW (test code = RDW) 15.5 11.5-14.5 [place] [address]-04-12 12:58:00 Test Item Value Reference Range Interpretation Comments Platelet (test code = Platelet) 312 133-450 [place] 927472-04-12 12:58:00 Test Item Value Reference Range Interpretation Comments MPV (test code = MPV) 8.3 7.4-10.4 [place] [address]-04-12 12:58:00 Test Item Value Reference Range Interpretation Comments PT (test code = PT) 12.9 s 12.0-14.7 [place] [address]-04-12 12:58:00 Test Item Value Reference Range Interpretation Comments INR (test code = INR) 0.98 1 0.85-1.17 [place] [address]-04-12 12:58:00 Test Item Value Reference Range Interpretation Comments PTT (test code = PTT) 27.3 s 22.9-35.8 [place] [address]-04-12 12:58:00 Test Item Value Reference Range Interpretation Comments Segs (test code = Segs) 71.2 45.0-75.0 [place] [address]-04-12 12:58:00 Test Item Value Reference Range Interpretation Comments Lymphocytes (test code = Lymphocytes) 21.1 20.0-40.0 [place] [address]-04-12 12:58:00 Test Item Value Reference Range Interpretation Comments Monocytes (test code = Monocytes) 6.8 2.0-12.0 [place] [address]-04-12 12:58:00 Test Item Value Reference Range Interpretation Comments Eosinophils (test code = 0.1 See_Comment [A utomated message] The Eosinophils) system which ge nerated this result tra nsmitted reference range : <=4.0. The reference r boubacar was not used to int erpret this result as normal/abnormal . [place] [address]-04-12 12:58:00 Test Item Value Reference Range Interpretation Comments Basophils (test code = 0.8 See_Comment [Aut omated message] The Basophils) system which ge nerated this result tra nsmitted reference range : <=1.0. The reference r boubacar was not used to int erpret this result as normal/abnormal . [place] [address]-04-12 12:58:00 Test Item Value Reference Range Interpretation Comments Neutrophils # (test code = Neutrophils 7.5 1.5-8.1 #) [place] 927472-04-12 12:58:00 Test Item Value Reference Range Interpretation Comments Lymphocytes # (test code = Lymphocytes 2.2 1.0-5.5 #) [place] 927472-04-12 12:58:00 Test Item Value Reference Range Interpretation Comments Monocytes # (test code 0.7 See_Comment [Aut omated message] The = Monocytes #) system which generated this result tra nsmitted reference range : <=0.8. The reference r boubacar was not used to int erpret this result as normal/abnormal . [place] [address]-04-12 12:58:00 Test Item Value Reference Range Interpretation Comments Basophils # (test code 0.1 See_Comment [Aut omated message] The = Basophils #) system which generated this result tra nsmitted reference range : <=0.2. The reference r boubacar was not used to int erpret this result as normal/abnormal . [place] 988842-04-12 12:58:00 Test Item Value Reference Range Interpretation Comments Glucose Lvl (test code = Glucose Lvl) 228 70-99 [place] 988842-04-12 12:58:00 Test Item Value Reference Range Interpretation Comments BUN (test code = BUN) 23 7-22 [place] [address]-04-12 12:58:00 Test Item Value Reference Range Interpretation Comments Creatinine Lvl (test code = Creatinine 0.78 0.50-1.40 Lvl) [place] 988842-04-12 12:58:00 Test Item Value Reference Range Interpretation Comments Sodium Lvl (test code = Sodium Lvl) 138 135-145 [place] 988842-04-12 12:58:00 Test Item Value Reference Range Interpretation Comments Potassium Lvl (test code = Potassium 4.6 3.5-5.1 Lvl) [place] 988842-04-12 12:58:00 Test Item Value Reference Range Interpretation Comments Chloride Lvl (test code = Chloride Lvl) 108 95-109 [place] 988842-04-12 12:58:00 Test Item Value Reference Range Interpretation Comments CO2 (test code = CO2) 23 24-32 [facility]2022-04-12 12:58:00 Test Item Value Reference Range Interpretation Comments Calcium Lvl (test code = Calcium Lvl) 9.0 8.5-10.5 [facility]2022-04-12 12:58:00 Test Item Value Reference Range Interpretation Comments AGAP (test code = AGAP) 11.6 10.0-20.0 [facility]2022-04-12 12:58:00 Test Item Value Reference Range Interpretation Comments eGFR (test code = eGFR) 116 [facility]ymzajGCGKFPKXZT3715-22-38 12:58:00 Test Item Value Reference Range Interpretation Comments WBC (test code = WBC) 10.5 3.7-10.4 [facility]inteMzrtbcnWAPTRZZLYY7443-11-62 12:58:00 Test Item Value Reference Range Interpretation Comments RBC (test code = RBC) 5.48 4.70-6.10 [facility]inteGnlmysnSHHSUGMVZP0617-23-35 12:58:00 Test Item Value Reference Range Interpretation Comments Hgb (test code = Hgb) 16.0 14.0-18.0 [facility]inteWqlgjtlXYHXZQNTDY2922-08-37 12:58:00 Test Item Value Reference Range Interpretation Comments Hct (test code = Hct) 49.8 42.0-54.0 [facility] PointeUwhjahuJZRXMNYBNM4625-81-27 12:58:00 Test Item Value Reference Range Interpretation Comments MCV (test code = MCV) 90.8 80.0-94.0 [facility] PointeTyuxaczVGQXYQHKHU2206-04-61 12:58:00 Test Item Value Reference Range Interpretation Comments MCH (test code = MCH) 29.1 pg 27.0-31.0 [facility] PointeZlsbvmmGNYYEMOWIC9903-54-48 12:58:00 Test Item Value Reference Range Interpretation Comments MCHC (test code = MCHC) 32.1 32.0-36.0 [place] 927472-04-12 12:58:00 Test Item Value Reference Range Interpretation Comments RDW (test code = RDW) 15.5 11.5-14.5 [facility] PointeKracbtbWURAMLDRSR7982-85-82 12:58:00 Test Item Value Reference Range Interpretation Comments Platelet (test code = Platelet) 312 133-450 [place] [address]-04-12 12:58:00 Test Item Value Reference Range Interpretation Comments MPV (test code = MPV) 8.3 7.4-10.4 [place] [address]-04-12 12:58:00 Test Item Value Reference Range Interpretation Comments PT (test code = PT) 12.9 s 12.0-14.7 [place] [address]-04-12 12:58:00 Test Item Value Reference Range Interpretation Comments INR (test code = INR) 0.98 1 0.85-1.17 [place] [address]-04-12 12:58:00 Test Item Value Reference Range Interpretation Comments PTT (test code = PTT) 27.3 s 22.9-35.8 [place] [address]-04-12 12:58:00 Test Item Value Reference Range Interpretation Comments Segs (test code = Segs) 71.2 45.0-75.0 [place] [address]-04-12 12:58:00 Test Item Value Reference Range Interpretation Comments Lymphocytes (test code = Lymphocytes) 21.1 20.0-40.0 [place] [address]-04-12 12:58:00 Test Item Value Reference Range Interpretation Comments Monocytes (test code = Monocytes) 6.8 2.0-12.0 [place] [address]-04-12 12:58:00 Test Item Value Reference Range Interpretation Comments Eosinophils (test code = 0.1 See_Comment [A utomated message] The Eosinophils) system which ge nerated this result tra nsmitted reference range : <=4.0. The reference r boubacar was not used to int erpret this result as normal/abnormal . [place]27472-04-12 12:58:00 Test Item Value Reference Range Interpretation Comments Basophils (test code = 0.8 See_Comment [Aut omated message] The Basophils) system which ge nerated this result tra nsmitted reference range : <=1.0. The reference r boubacar was not used to int erpret this result as normal/abnormal . [place] [address]-04-12 12:58:00 Test Item Value Reference Range Interpretation Comments Neutrophils # (test code = Neutrophils 7.5 1.5-8.1 #) [place] 927472-04-12 12:58:00 Test Item Value Reference Range Interpretation Comments Lymphocytes # (test code = Lymphocytes 2.2 1.0-5.5 #) [facility]inteOhxltpgXKWRMWRJLS0968-02-36 12:58:00 Test Item Value Reference Range Interpretation Comments Monocytes # (test code 0.7 See_Comment [Aut omated message] The = Monocytes #) system which generated this result tra nsmitted reference range : <=0.8. The reference r boubacar was not used to int erpret this result as normal/abnormal . [place] 927472-04-12 12:58:00 Test Item Value Reference Range Interpretation Comments Basophils # (test code 0.1 See_Comment [Aut omated message] The = Basophils #) system which generated this result tra nsmitted reference range : <=0.2. The reference r boubacar was not used to int erpret this result as normal/abnormal . [facility]2022-04-12 12:58:00 Test Item Value Reference Range Interpretation Comments Glucose Lvl (test code = Glucose Lvl) 228 70-99 [place] 988842-04-12 12:58:00 Test Item Value Reference Range Interpretation Comments BUN (test code = BUN) 23 7-22 [place] 988842-04-12 12:58:00 Test Item Value Reference Range Interpretation Comments Creatinine Lvl (test code = Creatinine 0.78 0.50-1.40 Lvl) [place]88842-04-12 12:58:00 Test Item Value Reference Range Interpretation Comments Sodium Lvl (test code = Sodium Lvl) 138 135-145 [place] 988842-04-12 12:58:00 Test Item Value Reference Range Interpretation Comments Potassium Lvl (test code = Potassium 4.6 3.5-5.1 Lvl) [place]88842-04-12 12:58:00 Test Item Value Reference Range Interpretation Comments Chloride Lvl (test code = Chloride Lvl) 108 95-109 [place]88842-04-12 12:58:00 Test Item Value Reference Range Interpretation Comments CO2 (test code = CO2) 23 24-32 [place]88842-04-12 12:58:00 Test Item Value Reference Range Interpretation Comments Calcium Lvl (test code = Calcium Lvl) 9.0 8.5-10.5 [facility]2022-04-12 12:58:00 Test Item Value Reference Range Interpretation Comments AGAP (test code = AGAP) 11.6 10.0-20.0 [facility]2022-04-12 12:58:00 Test Item Value Reference Range Interpretation Comments eGFR (test code = eGFR) 116 [facility]inteXfavsqaHNIWMLIOFM9024-84-84 12:58:00 Test Item Value Reference Range Interpretation Comments WBC (test code = WBC) 10.5 3.7-10.4 [facility] PointeYblhhyuPZVFVNSYLL8704-12-96 12:58:00 Test Item Value Reference Range Interpretation Comments RBC (test code = RBC) 5.48 4.70-6.10 [facility] PointeFgxrapnQLEQEOUDUN9853-36-58 12:58:00 Test Item Value Reference Range Interpretation Comments Hgb (test code = Hgb) 16.0 14.0-18.0 [place] 927472-04-12 12:58:00 Test Item Value Reference Range Interpretation Comments Hct (test code = Hct) 49.8 42.0-54.0 [facility]inteOiwhghhNXLNPGMCNI3240-31-48 12:58:00 Test Item Value Reference Range Interpretation Comments MCV (test code = MCV) 90.8 80.0-94.0 [place] 927472-04-12 12:58:00 Test Item Value Reference Range Interpretation Comments MCH (test code = MCH) 29.1 pg 27.0-31.0 [place] 927472-04-12 12:58:00 Test Item Value Reference Range Interpretation Comments MCHC (test code = MCHC) 32.1 32.0-36.0 [place] 927472-04-12 12:58:00 Test Item Value Reference Range Interpretation Comments RDW (test code = RDW) 15.5 11.5-14.5 [place] 927472-04-12 12:58:00 Test Item Value Reference Range Interpretation Comments Platelet (test code = Platelet) 312 612-450 [facility] PointeQbierbfPYFSSNAFXD3619-11-48 12:58:00 Test Item Value Reference Range Interpretation Comments MPV (test code = MPV) 8.3 7.4-10.4 [place] 927472-04-12 12:58:00 Test Item Value Reference Range Interpretation Comments PT (test code = PT) 12.9 s 12.0-14.7 [place] 927472-04-12 12:58:00 Test Item Value Reference Range Interpretation Comments INR (test code = INR) 0.98 1 0.85-1.17 [place] [address]-04-12 12:58:00 Test Item Value Reference Range Interpretation Comments PTT (test code = PTT) 27.3 s 22.9-35.8 [place] [address]-04-12 12:58:00 Test Item Value Reference Range Interpretation Comments Segs (test code = Segs) 71.2 45.0-75.0 [place] [address]-04-12 12:58:00 Test Item Value Reference Range Interpretation Comments Lymphocytes (test code = Lymphocytes) 21.1 20.0-40.0 [place] [address]-04-12 12:58:00 Test Item Value Reference Range Interpretation Comments Monocytes (test code = Monocytes) 6.8 2.0-12.0 [place] [address]-04-12 12:58:00 Test Item Value Reference Range Interpretation Comments Eosinophils (test code = 0.1 See_Comment [A utomated message] The Eosinophils) system which ge nerated this result tra nsmitted reference range : <=4.0. The reference r boubacar was not used to int erpret this result as normal/abnormal . [place] 927472-04-12 12:58:00 Test Item Value Reference Range Interpretation Comments Basophils (test code = 0.8 See_Comment [Aut omated message] The Basophils) system which ge nerated this result tra nsmitted reference range : <=1.0. The reference r boubacar was not used to int erpret this result as normal/abnormal . [place] 927472-04-12 12:58:00 Test Item Value Reference Range Interpretation Comments Neutrophils # (test code = Neutrophils 7.5 1.5-8.1 #) [place] 927472-04-12 12:58:00 Test Item Value Reference Range Interpretation Comments Lymphocytes # (test code = Lymphocytes 2.2 1.0-5.5 #) [place]27472-04-12 12:58:00 Test Item Value Reference Range Interpretation Comments Monocytes # (test code 0.7 See_Comment [Aut omated message] The = Monocytes #) system which generated this result tra nsmitted reference range : <=0.8. The reference r boubacar was not used to int erpret this result as normal/abnormal . [facility]inteVplxqukFNRCYEPKRY5097-27-55 12:58:00 Test Item Value Reference Range Interpretation Comments Basophils # (test code 0.1 See_Comment [Aut omated message] The = Basophils #) system which generated this result tra nsmitted reference range : <=0.2. The reference r boubacar was not used to int erpret this result as normal/abnormal . [facility]2022-04-12 12:58:00 Test Item Value Reference Range Interpretation Comments Glucose Lvl (test code = Glucose Lvl) 228 70-99 [facility]2022-04-12 12:58:00 Test Item Value Reference Range Interpretation Comments BUN (test code = BUN) 23 7-22 [place] 988842-04-12 12:58:00 Test Item Value Reference Range Interpretation Comments Creatinine Lvl (test code = Creatinine 0.78 0.50-1.40 Lvl) [facility]2022-04-12 12:58:00 Test Item Value Reference Range Interpretation Comments Sodium Lvl (test code = Sodium Lvl) 138 135-145 [place] 988842-04-12 12:58:00 Test Item Value Reference Range Interpretation Comments Potassium Lvl (test code = Potassium 4.6 3.5-5.1 Lvl) [place]88842-04-12 12:58:00 Test Item Value Reference Range Interpretation Comments Chloride Lvl (test code = Chloride Lvl) 108 95-109 [place] 988842-04-12 12:58:00 Test Item Value Reference Range Interpretation Comments CO2 (test code = CO2) 23 24-32 [facility]2022-04-12 12:58:00 Test Item Value Reference Range Interpretation Comments Calcium Lvl (test code = Calcium Lvl) 9.0 8.5-10.5 [place] 988842-04-12 12:58:00 Test Item Value Reference Range Interpretation Comments AGAP (test code = AGAP) 11.6 10.0-20.0 [place]88842-04-12 12:58:00 Test Item Value Reference Range Interpretation Comments eGFR (test code = eGFR) 116 [facility]inteGwnpinxYCDVWOGPMI3358-61-02 12:58:00 Test Item Value Reference Range Interpretation Comments WBC (test code = WBC) 10.5 3.7-10.4 [place] 927472-04-12 12:58:00 Test Item Value Reference Range Interpretation Comments RBC (test code = RBC) 5.48 4.70-6.10 [place] 927472-04-12 12:58:00 Test Item Value Reference Range Interpretation Comments Hgb (test code = Hgb) 16.0 14.0-18.0 [place] [address]-04-12 12:58:00 Test Item Value Reference Range Interpretation Comments Hct (test code = Hct) 49.8 42.0-54.0 [place] 927472-04-12 12:58:00 Test Item Value Reference Range Interpretation Comments MCV (test code = MCV) 90.8 80.0-94.0 [place] [address]-04-12 12:58:00 Test Item Value Reference Range Interpretation Comments MCH (test code = MCH) 29.1 pg 27.0-31.0 [place] 927472-04-12 12:58:00 Test Item Value Reference Range Interpretation Comments MCHC (test code = MCHC) 32.1 32.0-36.0 [place] 927472-04-12 12:58:00 Test Item Value Reference Range Interpretation Comments RDW (test code = RDW) 15.5 11.5-14.5 [place] 927472-04-12 12:58:00 Test Item Value Reference Range Interpretation Comments Platelet (test code = Platelet) 312 133-450 [facility]inteXtmuwczWWLPHWSIID7153-62-30 12:58:00 Test Item Value Reference Range Interpretation Comments MPV (test code = MPV) 8.3 7.4-10.4 [place] 927472-04-12 12:58:00 Test Item Value Reference Range Interpretation Comments PT (test code = PT) 12.9 s 12.0-14.7 [place] 927472-04-12 12:58:00 Test Item Value Reference Range Interpretation Comments INR (test code = INR) 0.98 1 0.85-1.17 [place] 927472-04-12 12:58:00 Test Item Value Reference Range Interpretation Comments PTT (test code = PTT) 27.3 s 22.9-35.8 [facility]inteSfihmhzXQZKFRNAHX3772-28-59 12:58:00 Test Item Value Reference Range Interpretation Comments Segs (test code = Segs) 71.2 45.0-75.0 [place] 927472-04-12 12:58:00 Test Item Value Reference Range Interpretation Comments Lymphocytes (test code = Lymphocytes) 21.1 20.0-40.0 [place] [address]-04-12 12:58:00 Test Item Value Reference Range Interpretation Comments Monocytes (test code = Monocytes) 6.8 2.0-12.0 [place] 927472-04-12 12:58:00 Test Item Value Reference Range Interpretation Comments Eosinophils (test code = 0.1 See_Comment [A utomated message] The Eosinophils) system which ge nerated this result tra nsmitted reference range : <=4.0. The reference r boubacar was not used to int erpret this result as normal/abnormal . [facility] PointeFazpmxlKAZRHEDQVL1232-19-66 12:58:00 Test Item Value Reference Range Interpretation Comments Basophils (test code = 0.8 See_Comment [Aut omated message] The Basophils) system which ge nerated this result tra nsmitted reference range : <=1.0. The reference r boubacar was not used to int erpret this result as normal/abnormal . [facility]inteVwkynzqUTXTOKUDTB2368-05-39 12:58:00 Test Item Value Reference Range Interpretation Comments Neutrophils # (test code = Neutrophils 7.5 1.5-8.1 #) [place] 927472-04-12 12:58:00 Test Item Value Reference Range Interpretation Comments Lymphocytes # (test code = Lymphocytes 2.2 1.0-5.5 #) [place] 927472-04-12 12:58:00 Test Item Value Reference Range Interpretation Comments Monocytes # (test code 0.7 See_Comment [Aut omated message] The = Monocytes #) system which generated this result tra nsmitted reference range : <=0.8. The reference r boubacar was not used to int erpret this result as normal/abnormal . [place] 927472-04-12 12:58:00 Test Item Value Reference Range Interpretation Comments Basophils # (test code 0.1 See_Comment [Aut omated message] The = Basophils #) system which generated this result tra nsmitted reference range : <=0.2. The reference r boubacar was not used to int erpret this result as normal/abnormal . [place]88842-04-12 12:58:00 Test Item Value Reference Range Interpretation Comments Glucose Lvl (test code = Glucose Lvl) 228 70-99 [place] 988842-04-12 12:58:00 Test Item Value Reference Range Interpretation Comments BUN (test code = BUN) 23 7-22 [place] 988842-04-12 12:58:00 Test Item Value Reference Range Interpretation Comments Creatinine Lvl (test code = Creatinine 0.78 0.50-1.40 Lvl) [facility]2022-04-12 12:58:00 Test Item Value Reference Range Interpretation Comments Sodium Lvl (test code = Sodium Lvl) 138 135-145 [place] 988842-04-12 12:58:00 Test Item Value Reference Range Interpretation Comments Potassium Lvl (test code = Potassium 4.6 3.5-5.1 Lvl) [place]88842-04-12 12:58:00 Test Item Value Reference Range Interpretation Comments Chloride Lvl (test code = Chloride Lvl) 108 95-109 [place] 988842-04-12 12:58:00 Test Item Value Reference Range Interpretation Comments CO2 (test code = CO2) 23 24-32 [place] 988842-04-12 12:58:00 Test Item Value Reference Range Interpretation Comments Calcium Lvl (test code = Calcium Lvl) 9.0 8.5-10.5 [place] 988842-04-12 12:58:00 Test Item Value Reference Range Interpretation Comments AGAP (test code = AGAP) 11.6 10.0-20.0 [place] 988842-04-12 12:58:00 Test Item Value Reference Range Interpretation Comments eGFR (test code = eGFR) 116 [place] 927472-04-12 12:58:00 Test Item Value Reference Range Interpretation Comments WBC (test code = WBC) 10.5 3.7-10.4 [facility]gedakxVKMYTMYPUA5310-01-79 12:58:00 Test Item Value Reference Range Interpretation Comments RBC (test code = RBC) 5.48 4.70-6.10 [facility]inteWzdvuvpYJWCDBZFRJ9794-34-63 12:58:00 Test Item Value Reference Range Interpretation Comments Hgb (test code = Hgb) 16.0 14.0-18.0 [place] 927472-04-12 12:58:00 Test Item Value Reference Range Interpretation Comments Hct (test code = Hct) 49.8 42.0-54.0 [facility]inteGvykftnYSXNUBGFMY9715-73-98 12:58:00 Test Item Value Reference Range Interpretation Comments MCV (test code = MCV) 90.8 80.0-94.0 [place] 927472-04-12 12:58:00 Test Item Value Reference Range Interpretation Comments MCH (test code = MCH) 29.1 pg 27.0-31.0 [facility]inteEgxyaiaCVRPKAGYXH0484-70-80 12:58:00 Test Item Value Reference Range Interpretation Comments MCHC (test code = MCHC) 32.1 32.0-36.0 [facility] PointeLgeqgwlIOEFVXGNPE5091-39-68 12:58:00 Test Item Value Reference Range Interpretation Comments RDW (test code = RDW) 15.5 11.5-14.5 [facility]intePcynatdYJDSBEOAHC0914-45-09 12:58:00 Test Item Value Reference Range Interpretation Comments Platelet (test code = Platelet) 312 133-450 [facility] PointeYnnifupDADAUZIVCV4688-11-72 12:58:00 Test Item Value Reference Range Interpretation Comments MPV (test code = MPV) 8.3 7.4-10.4 [facility] PointeOerzeusYAOBRQZYIG7392-80-98 12:58:00 Test Item Value Reference Range Interpretation Comments PT (test code = PT) 12.9 s 12.0-14.7 [facility] PointeLhmueitFHVIPQOOXA5917-27-24 12:58:00 Test Item Value Reference Range Interpretation Comments INR (test code = INR) 0.98 1 0.85-1.17 [facility] PointeMrshhzqDNPHBBZFLF4428-59-19 12:58:00 Test Item Value Reference Range Interpretation Comments PTT (test code = PTT) 27.3 s 22.9-35.8 [place] [address]-04-12 12:58:00 Test Item Value Reference Range Interpretation Comments Segs (test code = Segs) 71.2 45.0-75.0 [place] [address]-04-12 12:58:00 Test Item Value Reference Range Interpretation Comments Lymphocytes (test code = Lymphocytes) 21.1 20.0-40.0 [place] [address]-04-12 12:58:00 Test Item Value Reference Range Interpretation Comments Monocytes (test code = Monocytes) 6.8 2.0-12.0 [place] [address]-04-12 12:58:00 Test Item Value Reference Range Interpretation Comments Eosinophils (test code = 0.1 See_Comment [A utomated message] The Eosinophils) system which ge nerated this result tra nsmitted reference range : <=4.0. The reference r boubacar was not used to int erpret this result as normal/abnormal . [address]04-12 12:58:00 Test Item Value Reference Range Interpretation Comments Basophils (test code = 0.8 See_Comment [Aut omated message] The Basophils) system which ge nerated this result tra nsmitted reference range : <=1.0. The reference r boubacar was not used to int erpret this result as normal/abnormal . [place] [address]-04-12 12:58:00 Test Item Value Reference Range Interpretation Comments Neutrophils # (test code = Neutrophils 7.5 1.5-8.1 #) [place] [address]-04-12 12:58:00 Test Item Value Reference Range Interpretation Comments Lymphocytes # (test code = Lymphocytes 2.2 1.0-5.5 #) [place] [address]-04-12 12:58:00 Test Item Value Reference Range Interpretation Comments Monocytes # (test code 0.7 See_Comment [Aut omated message] The = Monocytes #) system which generated this result tra nsmitted reference range : <=0.8. The reference r boubacar was not used to int erpret this result as normal/abnormal . [place] [address]-04-12 12:58:00 Test Item Value Reference Range Interpretation Comments Basophils # (test code 0.1 See_Comment [Aut omated message] The = Basophils #) system which generated this result tra nsmitted reference range : <=0.2. The reference r boubacar was not used to int erpret this result as normal/abnormal . [place] 988842-04-12 12:58:00 Test Item Value Reference Range Interpretation Comments Glucose Lvl (test code = Glucose Lvl) 228 70-99 [place] 988842-04-12 12:58:00 Test Item Value Reference Range Interpretation Comments BUN (test code = BUN) 23 7-22 [place] 988842-04-12 12:58:00 Test Item Value Reference Range Interpretation Comments Creatinine Lvl (test code = Creatinine 0.78 0.50-1.40 Lvl) [place]88842-04-12 12:58:00 Test Item Value Reference Range Interpretation Comments Sodium Lvl (test code = Sodium Lvl) 138 135-145 [place] 988842-04-12 12:58:00 Test Item Value Reference Range Interpretation Comments Potassium Lvl (test code = Potassium 4.6 3.5-5.1 Lvl) [place]88842-04-12 12:58:00 Test Item Value Reference Range Interpretation Comments Chloride Lvl (test code = Chloride Lvl) 108 95-109 [place] 988842-04-12 12:58:00 Test Item Value Reference Range Interpretation Comments CO2 (test code = CO2) 23 24-32 [facility]2022-04-12 12:58:00 Test Item Value Reference Range Interpretation Comments Calcium Lvl (test code = Calcium Lvl) 9.0 8.5-10.5 [place] 988842-04-12 12:58:00 Test Item Value Reference Range Interpretation Comments AGAP (test code = AGAP) 11.6 10.0-20.0 [place]88842-04-12 12:58:00 Test Item Value Reference Range Interpretation Comments eGFR (test code = eGFR) 116 [place] 927472-04-12 12:58:00 Test Item Value Reference Range Interpretation Comments WBC (test code = WBC) 10.5 3.7-10.4 [place] 927472-04-12 12:58:00 Test Item Value Reference Range Interpretation Comments RBC (test code = RBC) 5.48 4.70-6.10 [place] [address]-04-12 12:58:00 Test Item Value Reference Range Interpretation Comments Hgb (test code = Hgb) 16.0 14.0-18.0 [facility] PointeJstywapCYNVDCJZSY2623-69-47 12:58:00 Test Item Value Reference Range Interpretation Comments Hct (test code = Hct) 49.8 42.0-54.0 [facility] PointeAvgqyllJQFMQRSIAP6261-68-86 12:58:00 Test Item Value Reference Range Interpretation Comments MCV (test code = MCV) 90.8 80.0-94.0 [place] 927472-04-12 12:58:00 Test Item Value Reference Range Interpretation Comments MCH (test code = MCH) 29.1 pg 27.0-31.0 [facility] PointeJkzboutSKCMTRVAON4398-12-06 12:58:00 Test Item Value Reference Range Interpretation Comments MCHC (test code = MCHC) 32.1 32.0-36.0 [facility] PointeIaikzdtDDMOCLSDLW8091-99-91 12:58:00 Test Item Value Reference Range Interpretation Comments RDW (test code = RDW) 15.5 11.5-14.5 [place] 927472-04-12 12:58:00 Test Item Value Reference Range Interpretation Comments Platelet (test code = Platelet) 312 133-450 [facility] PointeDeecqlkYVXHCMYWQX0144-00-79 12:58:00 Test Item Value Reference Range Interpretation Comments MPV (test code = MPV) 8.3 7.4-10.4 [place] 927472-04-12 12:58:00 Test Item Value Reference Range Interpretation Comments PT (test code = PT) 12.9 s 12.0-14.7 [place] [address]-04-12 12:58:00 Test Item Value Reference Range Interpretation Comments INR (test code = INR) 0.98 1 0.85-1.17 [place] [address]-04-12 12:58:00 Test Item Value Reference Range Interpretation Comments PTT (test code = PTT) 27.3 s 22.9-35.8 [place] [address]-04-12 12:58:00 Test Item Value Reference Range Interpretation Comments Segs (test code = Segs) 71.2 45.0-75.0 [place] 927472-04-12 12:58:00 Test Item Value Reference Range Interpretation Comments Lymphocytes (test code = Lymphocytes) 21.1 20.0-40.0 [place] 927472-04-12 12:58:00 Test Item Value Reference Range Interpretation Comments Monocytes (test code = Monocytes) 6.8 2.0-12.0 [place] 927472-04-12 12:58:00 Test Item Value Reference Range Interpretation Comments Eosinophils (test code = 0.1 See_Comment [A utomated message] The Eosinophils) system which ge nerated this result tra nsmitted reference range : <=4.0. The reference r boubacar was not used to int erpret this result as normal/abnormal . [place] 927472-04-12 12:58:00 Test Item Value Reference Range Interpretation Comments Basophils (test code = 0.8 See_Comment [Aut omated message] The Basophils) system which ge nerated this result tra nsmitted reference range : <=1.0. The reference r boubacar was not used to int erpret this result as normal/abnormal . [place] 927472-04-12 12:58:00 Test Item Value Reference Range Interpretation Comments Neutrophils # (test code = Neutrophils 7.5 1.5-8.1 #) [place] 927472-04-12 12:58:00 Test Item Value Reference Range Interpretation Comments Lymphocytes # (test code = Lymphocytes 2.2 1.0-5.5 #) [place] 927472-04-12 12:58:00 Test Item Value Reference Range Interpretation Comments Monocytes # (test code 0.7 See_Comment [Aut omated message] The = Monocytes #) system which generated this result tra nsmitted reference range : <=0.8. The reference r boubacar was not used to int erpret this result as normal/abnormal . [place] 927472-04-12 12:58:00 Test Item Value Reference Range Interpretation Comments Basophils # (test code 0.1 See_Comment [Aut omated message] The = Basophils #) system which generated this result tra nsmitted reference range : <=0.2. The reference r boubacar was not used to int erpret this result as normal/abnormal . [facility]2022-04-12 12:58:00 Test Item Value Reference Range Interpretation Comments Glucose Lvl (test code = Glucose Lvl) 228 70-99 [place] 988842-04-12 12:58:00 Test Item Value Reference Range Interpretation Comments BUN (test code = BUN) 23 7-22 [place] 988842-04-12 12:58:00 Test Item Value Reference Range Interpretation Comments Creatinine Lvl (test code = Creatinine 0.78 0.50-1.40 Lvl) [place]88842-04-12 12:58:00 Test Item Value Reference Range Interpretation Comments Sodium Lvl (test code = Sodium Lvl) 138 135-145 [place]88842-04-12 12:58:00 Test Item Value Reference Range Interpretation Comments Potassium Lvl (test code = Potassium 4.6 3.5-5.1 Lvl) [place]88[place]-04-12 12:58:00 Test Item Value Reference Range Interpretation Comments Chloride Lvl (test code = Chloride Lvl) 108 95-109 [place]88842-04-12 12:58:00 Test Item Value Reference Range Interpretation Comments CO2 (test code = CO2) 23 24-32 [place]88842-04-12 12:58:00 Test Item Value Reference Range Interpretation Comments Calcium Lvl (test code = Calcium Lvl) 9.0 8.5-10.5 [place]88842-04-12 12:58:00 Test Item Value Reference Range Interpretation Comments AGAP (test code = AGAP) 11.6 10.0-20.0 [place]88842-04-12 12:58:00 Test Item Value Reference Range Interpretation Comments eGFR (test code = eGFR) 116 [place] 927472-04-12 12:58:00 Test Item Value Reference Range Interpretation Comments WBC (test code = WBC) 10.5 3.7-10.4 [place] [address]-04-12 12:58:00 Test Item Value Reference Range Interpretation Comments RBC (test code = RBC) 5.48 4.70-6.10 [place] [address]-04-12 12:58:00 Test Item Value Reference Range Interpretation Comments Hgb (test code = Hgb) 16.0 14.0-18.0 [place] [address]-04-12 12:58:00 Test Item Value Reference Range Interpretation Comments Hct (test code = Hct) 49.8 42.0-54.0 [place] [address]-04-12 12:58:00 Test Item Value Reference Range Interpretation Comments MCV (test code = MCV) 90.8 80.0-94.0 [place] [address]-04-12 12:58:00 Test Item Value Reference Range Interpretation Comments MCH (test code = MCH) 29.1 pg 27.0-31.0 [place] 927472-04-12 12:58:00 Test Item Value Reference Range Interpretation Comments MCHC (test code = MCHC) 32.1 32.0-36.0 [place] [address]-04-12 12:58:00 Test Item Value Reference Range Interpretation Comments RDW (test code = RDW) 15.5 11.5-14.5 [place] [address]-04-12 12:58:00 Test Item Value Reference Range Interpretation Comments Platelet (test code = Platelet) 312 133-450 [place] 927472-04-12 12:58:00 Test Item Value Reference Range Interpretation Comments MPV (test code = MPV) 8.3 7.4-10.4 [place] [address]-04-12 12:58:00 Test Item Value Reference Range Interpretation Comments PT (test code = PT) 12.9 s 12.0-14.7 [place] [address]-04-12 12:58:00 Test Item Value Reference Range Interpretation Comments INR (test code = INR) 0.98 1 0.85-1.17 [place] [address]-04-12 12:58:00 Test Item Value Reference Range Interpretation Comments PTT (test code = PTT) 27.3 s 22.9-35.8 [place] [address]-04-12 12:58:00 Test Item Value Reference Range Interpretation Comments Segs (test code = Segs) 71.2 45.0-75.0 [place] [address]-04-12 12:58:00 Test Item Value Reference Range Interpretation Comments Lymphocytes (test code = Lymphocytes) 21.1 20.0-40.0 [place] [address]-04-12 12:58:00 Test Item Value Reference Range Interpretation Comments Monocytes (test code = Monocytes) 6.8 2.0-12.0 [place] 927472-04-12 12:58:00 Test Item Value Reference Range Interpretation Comments Eosinophils (test code = 0.1 See_Comment [A utomated message] The Eosinophils) system which ge nerated this result tra nsmitted reference range : <=4.0. The reference r boubacar was not used to int erpret this result as normal/abnormal . [facility]inteUyditnkMVMIJWBIXA9313-76-23 12:58:00 Test Item Value Reference Range Interpretation Comments Basophils (test code = 0.8 See_Comment [Aut omated message] The Basophils) system which ge nerated this result tra nsmitted reference range : <=1.0. The reference r boubacar was not used to int erpret this result as normal/abnormal . [facility] PointeVaeezckFUXEWNXTVO6511-56-40 12:58:00 Test Item Value Reference Range Interpretation Comments Neutrophils # (test code = Neutrophils 7.5 1.5-8.1 #) [facility] PointeAvlsauxWHLSTMUEVX5849-28-21 12:58:00 Test Item Value Reference Range Interpretation Comments Lymphocytes # (test code = Lymphocytes 2.2 1.0-5.5 #) [facility] PointePqqwjlmVHPMXEEVOH1746-61-56 12:58:00 Test Item Value Reference Range Interpretation Comments Monocytes # (test code 0.7 See_Comment [Aut omated message] The = Monocytes #) system which generated this result tra nsmitted reference range : <=0.8. The reference r boubacar was not used to int erpret this result as normal/abnormal . [facility] PointeZxcqtviITRYKJOAPI8042-72-44 12:58:00 Test Item Value Reference Range Interpretation Comments Basophils # (test code 0.1 See_Comment [Aut omated message] The = Basophils #) system which generated this result tra nsmitted reference range : <=0.2. The reference r boubacar was not used to int erpret this result as normal/abnormal . [facility]GroundLinkXBUWLJ8751-05-94 11:59:00 Test Item Value Reference Range Interpretation Comments Tube Num CSF (test code = Tube Num CSF) 3 1 [facility] [id number] 11:59:00 Test Item Value Reference Range Interpretation Comments Color CSF (test code Colorless (10/24/21 6:59 = Color CSF) AM) [facility] [id number] 11:59:00 Test Item Value Reference Range Interpretation Comments Clarity CSF (test code = Clear (10/24/21 6:59 Clarity CSF) AM) [facility]2022-04-12 11:59:00 Test Item Value Reference Range Interpretation Comments Supernat CSF (test Colorless (10/24/21 6:59 code = Supernat CSF) AM) [facility]2022-04-12 11:59:00 Test Item Value Reference Range Interpretation Comments Nucleated Cells CSF 3 See_Comment [Automa lester message] The (test code = Nucleated syste m which generated Cells CSF) this result tra nsmitted reference range : <=53. The reference r boubacar was not used to int erpret this result as normal/abnormal . [facility]2022-04-12 11:59:00 Test Item Value Reference Range Interpretation Comments RBC CSF (test code = 64 See_Comment [Autom ated message] The RBC CSF) system which ge nerated this result transmit lester reference range : <=03. The reference range was not used to interpr et this result as dany l/abnormal. [facility]2022-04-12 11:59:00 Test Item Value Reference Range Interpretation Comments Comment CSF (test Differential not performed code = Comment CSF) on WBC count of less than 5. Cell counts performed on CSF greater than two hours after collection may not be entry level sales representative due to cellular degradation. [facility]2022-04-12 11:59:00 Test Item Value Reference Range Interpretation Comments Glucose CSF (test code = Glucose CSF) 129 45-[address] [facility]2022-04-12 11:59:00 Test Item Value Reference Range Interpretation Comments Protein CSF (test code = Protein CSF) 110 15-45 [facility] Hdolby4780-77-08 11:59:00 Test Item Value Reference Range Interpretation Comments Gram Stain Report Gram Stain Performed By: (test code = [facility] w/Gram [id number] 11:59:00 Test Item Value Reference Range Interpretation Comments Culture: CSF w/Gram 48 Hour Report - No Stain (test code = Growth, Holding Culture: CSF w/Gram Stain) [facility]2022-04-12 11:59:00 Test Item Value Reference Range Interpretation Comments Tube Num CSF (test code = Tube Num CSF) 3 1 [facility] [id number] 11:59:00 Test Item Value Reference Range Interpretation Comments Color CSF (test code Colorless (10/24/21 6:59 = Color CSF) AM) [facility]2022-04-12 11:59:00 Test Item Value Reference Range Interpretation Comments Clarity CSF (test code = Clear (10/24/21 6:59 Clarity CSF) AM) [facility]2022-04-12 11:59:00 Test Item Value Reference Range Interpretation Comments Supernat CSF (test Colorless (10/24/21 6:59 code = Supernat CSF) AM) [facility]2022-04-12 11:59:00 Test Item Value Reference Range Interpretation Comments Nucleated Cells CSF 3 See_Comment [Automa lester message] The (test code = Nucleated syste m which generated Cells CSF) this result tra nsmitted reference range : <=53. The reference r boubacar was not used to int erpret this result as normal/abnormal . [facility] [id number] 11:59:00 Test Item Value Reference Range Interpretation Comments RBC CSF (test code = 64 See_Comment [Autom ated message] The RBC CSF) system which ge nerated this result transmit lester reference range : <=03. The reference range was not used to interpr et this result as dany l/abnormal. [facility] [id number] 11:59:00 Test Item Value Reference Range Interpretation Comments Comment CSF (test Differential not performed code = Comment CSF) on WBC count of less than 5. Cell counts performed on CSF greater than two hours after collection may not be entry level sales representative due to cellular degradation. [facility] Hospitalbluebottlebiz [id number] 11:59:00 Test Item Value Reference Range Interpretation Comments Glucose CSF (test code = Glucose CSF) 129 45-80 [facility] [id number] 11:59:00 Test Item Value Reference Range Interpretation Comments Protein CSF (test code = Protein CSF) 110 15-45 [facility] Tepjma3501-82-38 11:59:00 Test Item Value Reference Range Interpretation Comments Gram Stain Report Gram Stain Performed By: (test code = Gram [facility] Stain Report) [facility] CSF w/Gram [id number] 11:59:00 Test Item Value Reference Range Interpretation Comments Culture: CSF w/Gram 48 Hour Report - No Stain (test code = Growth, Holding Culture: CSF w/Gram Stain) [facility]2022-04-12 11:59:00 Test Item Value Reference Range Interpretation Comments Tube Num CSF (test code = Tube Num CSF) [address] [facility]2022-04-12 11:59:00 Test Item Value Reference Range Interpretation Comments Color CSF (test code Colorless (10/24/21 6:59 = Color CSF) AM) [facility]2022-04-12 11:59:00 Test Item Value Reference Range Interpretation Comments Clarity CSF (test code = Clear (10/24/21 6:59 Clarity CSF) AM) [facility]2022-04-12 11:59:00 Test Item Value Reference Range Interpretation Comments Supernat CSF (test Colorless (10/24/21 6:59 code = Supernat CSF) AM) [facility]2022-04-12 11:59:00 Test Item Value Reference Range Interpretation Comments Nucleated Cells CSF 3 See_Comment [Automa lester message] The (test code = Nucleated syste m which generated Cells CSF) this result tra nsmitted reference range : <=53. The reference r boubacar was not used to int erpret this result as normal/abnormal . [facility]2022-04-12 11:59:00 Test Item Value Reference Range Interpretation Comments RBC CSF (test code = 64 See_Comment [Autom ated message] The RBC CSF) system which ge nerated this result transmit lester reference range : <=03. The reference range was not used to interpr et this result as dany l/abnormal. [facility]2022-04-12 11:59:00 Test Item Value Reference Range Interpretation Comments Comment CSF (test Differential not performed code = Comment CSF) on WBC count of less than 5. Cell counts performed on CSF greater than two hours after collection may not be entry level sales representative due to cellular degradation. [facility]2022-04-12 11:59:00 Test Item Value Reference Range Interpretation Comments Glucose CSF (test code = Glucose CSF) 129 45-[address] [facility]2022-04-12 11:59:00 Test Item Value Reference Range Interpretation Comments Protein CSF (test code = Protein CSF) 110 15-45 [facility] [id number] 11:59:00 Test Item Value Reference Range Interpretation Comments Gram Stain Report Gram Stain Performed By: (test code = Gram [facility] Stain Report) [facility] w/Gram [id number] 11:59:00 Test Item Value Reference Range Interpretation Comments Culture: CSF w/Gram 48 Hour Report - No Stain (test code = Growth, Holding Culture: CSF w/Gram Stain) [facility] [id number] 11:59:00 Test Item Value Reference Range Interpretation Comments Tube Num CSF (test code = Tube Num CSF) [address] [facility]2022-04-12 11:59:00 Test Item Value Reference Range Interpretation Comments Color CSF (test code Colorless (10/24/21 6:59 = Color CSF) AM) [facility]2022-04-12 11:59:00 Test Item Value Reference Range Interpretation Comments Clarity CSF (test code = Clear (10/24/21 6:59 Clarity CSF) AM) [facility]2022-04-12 11:59:00 Test Item Value Reference Range Interpretation Comments Supernat CSF (test Colorless (10/24/21 6:59 code = Supernat CSF) AM) [facility]2022-04-12 11:59:00 Test Item Value Reference Range Interpretation Comments Nucleated Cells CSF 3 See_Comment [Automa lester message] The (test code = Nucleated syste m which generated Cells CSF) this result tra nsmitted reference range : <=53. The reference r boubacar was not used to int erpret this result as normal/abnormal . [facility]2022-04-12 11:59:00 Test Item Value Reference Range Interpretation Comments RBC CSF (test code = 64 See_Comment [Autom ated message] The RBC CSF) system which ge nerated this result transmit lester reference range : <=03. The reference range was not used to interpr et this result as dany l/abnormal. [facility]2022-04-12 11:59:00 Test Item Value Reference Range Interpretation Comments Comment CSF (test Differential not performed code = Comment CSF) on WBC count of less than 5. Cell counts performed on CSF greater than two hours after collection may not be entry level sales representative due to cellular degradation. [facility] [id number] 11:59:00 Test Item Value Reference Range Interpretation Comments Glucose CSF (test code = Glucose CSF) 129 45-80 [facility] [id number] 11:59:00 Test Item Value Reference Range Interpretation Comments Protein CSF (test code = Protein CSF) 110 [facility] [id number] 11:59:00 Test Item Value Reference Range Interpretation Comments Gram Stain Report Gram Stain Performed By: (test code = Gram [facility]Gram [id number] 11:59:00 Test Item Value Reference Range Interpretation Comments Culture: CSF w/Gram 48 Hour Report - No Stain (test code = Growth, Holding Culture: CSF w/Gram Stain) [facility]2022-04-12 11:59:00 Test Item Value Reference Range Interpretation Comments Tube Num CSF (test code = Tube Num CSF) [address] [facility]2022-04-12 11:59:00 Test Item Value Reference Range Interpretation Comments Color CSF (test code Colorless (10/24/21 6:59 = Color CSF) AM) [facility]2022-04-12 11:59:00 Test Item Value Reference Range Interpretation Comments Clarity CSF (test code = Clear (10/24/21 6:59 Clarity CSF) AM) [facility]2022-04-12 11:59:00 Test Item Value Reference Range Interpretation Comments Supernat CSF (test Colorless (10/24/21 6:59 code = Supernat CSF) AM) [facility]2022-04-12 11:59:00 Test Item Value Reference Range Interpretation Comments Nucleated Cells CSF 3 See_Comment [Automa lester message] The (test code = Nucleated syste m which generated Cells CSF) this result tra nsmitted reference range : <=53. The reference r boubacar was not used to int erpret this result as normal/abnormal . [facility]2022-04-12 11:59:00 Test Item Value Reference Range Interpretation Comments RBC CSF (test code = 64 See_Comment [Autom ated message] The RBC CSF) system which ge nerated this result transmit lester reference range : <=03. The reference range was not used to interpr et this result as dany l/abnormal. [facility]2022-04-12 11:59:00 Test Item Value Reference Range Interpretation Comments Comment CSF (test Differential not performed code = Comment CSF) on WBC count of less than 5. Cell counts performed on CSF greater than two hours after collection may not be entry level sales representative due to cellular degradation. [facility] [id number] 11:59:00 Test Item Value Reference Range Interpretation Comments Glucose CSF (test code = Glucose CSF) 129 45-80 [facility] [id number] 11:59:00 Test Item Value Reference Range Interpretation Comments Protein CSF (test code = Protein CSF) 110 15-45 [facility] [id number] 11:59:00 Test Item Value Reference Range Interpretation Comments Gram Stain Report Gram Stain Performed By: (test code = Gram [facility] Stain Report) [facility] w/Gram [id number] 11:59:00 Test Item Value Reference Range Interpretation Comments Culture: CSF w/Gram 48 Hour Report - No Stain (test code = Growth, Holding Culture: CSF w/Gram Stain) [facility]2022-04-12 11:59:00 Test Item Value Reference Range Interpretation Comments Tube Num CSF (test code = Tube Num CSF) 3 1 [facility] [id number] 11:59:00 Test Item Value Reference Range Interpretation Comments Color CSF (test code Colorless (10/24/21 6:59 = Color CSF) AM) [facility]2022-04-12 11:59:00 Test Item Value Reference Range Interpretation Comments Clarity CSF (test code = Clear (10/24/21 6:59 Clarity CSF) AM) [facility]2022-04-12 11:59:00 Test Item Value Reference Range Interpretation Comments Supernat CSF (test Colorless (10/24/21 6:59 code = Supernat CSF) AM) [facility]2022-04-12 11:59:00 Test Item Value Reference Range Interpretation Comments Nucleated Cells CSF 3 See_Comment [Automa lester message] The (test code = Nucleated syste m which generated Cells CSF) this result tra nsmitted reference range : <=53. The reference r boubacar was not used to int erpret this result as normal/abnormal . [facility]2022-04-12 11:59:00 Test Item Value Reference Range Interpretation Comments RBC CSF (test code = 64 See_Comment [Autom ated message] The RBC CSF) system which ge nerated this result transmit lester reference range : <=03. The reference range was not used to interpr et this result as dany l/abnormal. [facility]2022-04-12 11:59:00 Test Item Value Reference Range Interpretation Comments Comment CSF (test Differential not performed code = Comment CSF) on WBC count of less than 5. Cell counts performed on CSF greater than two hours after collection may not be entry level sales representative due to cellular degradation. [facility] [id number] 11:59:00 Test Item Value Reference Range Interpretation Comments Glucose CSF (test code = Glucose CSF) 129 45-[address] [facility]2022-04-12 11:59:00 Test Item Value Reference Range Interpretation Comments Protein CSF (test code = Protein CSF) 110 15-45 [facility] [id number] 11:59:00 Test Item Value Reference Range Interpretation Comments Gram Stain Report Gram Stain Performed By: (test code = Gram [facility] Stain Report) [facility] w/Gram [id number] 11:59:00 Test Item Value Reference Range Interpretation Comments Culture: CSF w/Gram 48 Hour Report - No Stain (test code = Growth, Holding Culture: CSF w/Gram Stain) [facility]2022-04-12 11:59:00 Test Item Value Reference Range Interpretation Comments Tube Num CSF (test code = Tube Num CSF) [address] [facility]2022-04-12 11:59:00 Test Item Value Reference Range Interpretation Comments Color CSF (test code Colorless (10/24/21 6:59 = Color CSF) AM) [facility]2022-04-12 11:59:00 Test Item Value Reference Range Interpretation Comments Clarity CSF (test code = Clear (10/24/21 6:59 Clarity CSF) AM) [facility]2022-04-12 11:59:00 Test Item Value Reference Range Interpretation Comments Supernat CSF (test Colorless (10/24/21 6:59 code = Supernat CSF) AM) [facility]2022-04-12 11:59:00 Test Item Value Reference Range Interpretation Comments Nucleated Cells CSF 3 See_Comment [Automa lester message] The (test code = Nucleated syste m which generated Cells CSF) this result tra nsmitted reference range : <=53. The reference r boubacar was not used to int erpret this result as normal/abnormal . [facility]2022-04-12 11:59:00 Test Item Value Reference Range Interpretation Comments RBC CSF (test code = 64 See_Comment [Autom ated message] The RBC CSF) system which ge nerated this result transmit lester reference range : <=03. The reference range was not used to interpr et this result as dany l/abnormal. [facility]2022-04-12 11:59:00 Test Item Value Reference Range Interpretation Comments Comment CSF (test Differential not performed code = Comment CSF) on WBC count of less than 5. Cell counts performed on CSF greater than two hours after collection may not be entry level sales representative due to cellular degradation. [facility]2022-04-12 11:59:00 Test Item Value Reference Range Interpretation Comments Glucose CSF (test code = Glucose CSF) 129 45-[address] [facility]2022-04-12 11:59:00 Test Item Value Reference Range Interpretation Comments Protein CSF (test code = Protein CSF) 110 15-45 [facility] [id number] 11:59:00 Test Item Value Reference Range Interpretation Comments Gram Stain Report Gram Stain Performed By: (test code = Gram [facility] Stain Report) [facility] w/Gram [id number] 11:59:00 Test Item Value Reference Range Interpretation Comments Culture: CSF w/Gram 48 Hour Report - No Stain (test code = Growth, Holding Culture: CSF w/Gram Stain) [facility]2022-04-12 11:59:00 Test Item Value Reference Range Interpretation Comments Tube Num CSF (test code = Tube Num CSF) [address] [facility]2022-04-12 11:59:00 Test Item Value Reference Range Interpretation Comments Color CSF (test code Colorless (10/24/21 6:59 = Color CSF) AM) [facility]2022-04-12 11:59:00 Test Item Value Reference Range Interpretation Comments Clarity CSF (test code = Clear (10/24/21 6:59 Clarity CSF) AM) [facility]2022-04-12 11:59:00 Test Item Value Reference Range Interpretation Comments Supernat CSF (test Colorless (10/24/21 6:59 code = Supernat CSF) AM) [facility]2022-04-12 11:59:00 Test Item Value Reference Range Interpretation Comments Nucleated Cells CSF 3 See_Comment [Automa lester message] The (test code = Nucleated syste m which generated Cells CSF) this result tra nsmitted reference range : <=53. The reference r boubacar was not used to int erpret this result as normal/abnormal . [facility]2022-04-12 11:59:00 Test Item Value Reference Range Interpretation Comments RBC CSF (test code = 64 See_Comment [Autom ated message] The RBC CSF) system which ge nerated this result transmit lester reference range : <=03. The reference range was not used to interpr et this result as dany l/abnormal. [facility]2022-04-12 11:59:00 Test Item Value Reference Range Interpretation Comments Comment CSF (test Differential not performed code = Comment CSF) on WBC count of less than 5. Cell counts performed on CSF greater than two hours after collection may not be entry level sales representative due to cellular degradation. [facility] [id number] 11:59:00 Test Item Value Reference Range Interpretation Comments Glucose CSF (test code = Glucose CSF) 129 45-80 [facility] [id number] 11:59:00 Test Item Value Reference Range Interpretation Comments Protein CSF (test code = Protein CSF) 110 15-45 [facility] [id number] 11:59:00 Test Item Value Reference Range Interpretation Comments Gram Stain Report Gram Stain Performed By: (test code = Gram [facility] Stain Report) [facility] w/Gram [id number] 11:59:00 Test Item Value Reference Range Interpretation Comments Culture: CSF w/Gram 48 Hour Report - No Stain (test code = Growth, Holding Culture: CSF w/Gram Stain) [facility] [id number] 14:46:00 Test Item Value Reference Range Interpretation Comments Hgb A1C (test code = Hgb A1C) 5.6 [facility] [id number] 14:46:00 Test Item Value Reference Range Interpretation Comments Hgb A1C (test code = Hgb A1C) 5.6 [facility] [id number] 14:46:00 Test Item Value Reference Range Interpretation Comments Hgb A1C (test code = Hgb A1C) 5.6 [facility]2022-04-11 14:46:00 Test Item Value Reference Range Interpretation Comments Hgb A1C (test code = Hgb A1C) 5.6 [facility]2022-04-11 14:46:00 Test Item Value Reference Range Interpretation Comments Hgb A1C (test code = Hgb A1C) 5.6 [place] 322022-04-11 14:46:00 Test Item Value Reference Range Interpretation Comments Hgb A1C (test code = Hgb A1C) 5.6 [facility]2022-04-11 14:46:00 Test Item Value Reference Range Interpretation Comments Hgb A1C (test code = Hgb A1C) 5.6 [facility]2022-04-11 14:46:00 Test Item Value Reference Range Interpretation Comments Hgb A1C (test code = Hgb A1C) 5.6 [facility]2022-04-11 11:43:00 Test Item Value Reference Range Interpretation Comments Glucose Lvl (test code = Glucose Lvl) 418 70-99 [facility]2022-04-11 11:43:00 Test Item Value Reference Range Interpretation Comments BUN (test code = BUN) 22 7-22 [facility]2022-04-11 11:43:00 Test Item Value Reference Range Interpretation Comments Creatinine Lvl (test code = Creatinine 1.10 0.50-1.40 Lvl) [facility]2022-04-11 11:43:00 Test Item Value Reference Range Interpretation Comments Sodium Lvl (test code = Sodium Lvl) 138 135-145 [facility]2022-04-11 11:43:00 Test Item Value Reference Range Interpretation Comments Potassium Lvl (test code = Potassium 4.9 3.5-5.1 Lvl) [facility]2022-04-11 11:43:00 Test Item Value Reference Range Interpretation Comments Chloride Lvl (test code = Chloride Lvl) 113 95-109 [facility]2022-04-11 11:43:00 Test Item Value Reference Range Interpretation Comments CO2 (test code = CO2) 16 24-32 [facility]2022-04-11 11:43:00 Test Item Value Reference Range Interpretation Comments AGAP (test code = AGAP) 13.9 10.0-20.0 [facility]2022-04-11 11:43:00 Test Item Value Reference Range Interpretation Comments Calcium Lvl (test code = Calcium Lvl) 9.0 8.5-10.5 [facility]2022-04-11 11:43:00 Test Item Value Reference Range Interpretation Comments eGFR (test code = eGFR) 86 [facility]TmprhhsXOAZCLSYCV1445-97-54 11:43:00 Test Item Value Reference Range Interpretation Comments WBC (test code = WBC) 10.2 3.7-10.4 [facility]inteVkdidquGIWCRUXLLH3411-89-29 11:43:00 Test Item Value Reference Range Interpretation Comments RBC (test code = RBC) 5.46 4.70-6.10 [facility] PointeNlfkionHFAYMDSZPC5588-89-18 11:43:00 Test Item Value Reference Range Interpretation Comments Hgb (test code = Hgb) 16.3 14.0-18.0 [facility] PointeZsaxyzhEUYMUULMGL0073-97-65 11:43:00 Test Item Value Reference Range Interpretation Comments Hct (test code = Hct) 50.0 42.0-54.0 [facility] PointeOguvueeNMTTRWQAMH1229-71-04 11:43:00 Test Item Value Reference Range Interpretation Comments MCV (test code = MCV) 91.4 80.0-94.0 [facility] PointeHwbylrfDNHTNTTGWZ4763-40-14 11:43:00 Test Item Value Reference Range Interpretation Comments MCH (test code = MCH) 29.9 pg 27.0-31.0 [facility]inteTvfvdlsYNRJHBCVTI7298-73-14 11:43:00 Test Item Value Reference Range Interpretation Comments MCHC (test code = MCHC) 32.7 32.0-36.0 [facility] PointeJibqrucKSLBDZTSAD1038-67-51 11:43:00 Test Item Value Reference Range Interpretation Comments RDW (test code = RDW) 15.7 11.5-14.5 [facility] PointeQaqcawuYGWZLEMUQX7336-58-46 11:43:00 Test Item Value Reference Range Interpretation Comments Platelet (test code = Platelet) 321 133-450 [facility] PointeYdtludyNPEHYRLEQP6656-09-36 11:43:00 Test Item Value Reference Range Interpretation Comments MPV (test code = MPV) 8.6 7.4-10.4 [facility] PointeNlhdydmHERSJIPHBR9552-65-21 11:43:00 Test Item Value Reference Range Interpretation Comments Segs (test code = Segs) 92.0 45.0-75.0 [facility] PointeXmlkznpUGKBCKYUCW2686-20-59 11:43:00 Test Item Value Reference Range Interpretation Comments Lymphocytes (test code = Lymphocytes) 5.2 20.0-40.0 [place] 927472-04-11 11:43:00 Test Item Value Reference Range Interpretation Comments Monocytes (test code = Monocytes) 1.6 2.0-12.0 [place] 927472-04-11 11:43:00 Test Item Value Reference Range Interpretation Comments Basophils (test code = 1.2 See_Comment [Aut omated message] The Basophils) system which ge nerated this result tra nsmitted reference range : <=1.0. The reference r boubacar was not used to int erpret this result as normal/abnormal . [facility]inteYjxnykdCJZQCKBAAW6725-14-43 11:43:00 Test Item Value Reference Range Interpretation Comments Neutrophils # (test code = Neutrophils 9.4 1.5-8.1 #) [facility] PointeUmbvxoxSHJJAONVED3530-64-32 11:43:00 Test Item Value Reference Range Interpretation Comments Lymphocytes # (test code = Lymphocytes 0.5 1.0-5.5 #) [facility] PointeUafiixxJAAOOFPNUB8484-11-50 11:43:00 Test Item Value Reference Range Interpretation Comments Monocytes # (test code 0.2 See_Comment [Aut omated message] The = Monocytes #) system which generated this result tra nsmitted reference range : <=0.8. The reference r boubacar was not used to int erpret this result as normal/abnormal . [facility] PointeVemdtvqJLHRZXUMEJ7835-67-10 11:43:00 Test Item Value Reference Range Interpretation Comments Basophils # (test code 0.1 See_Comment [Aut omated message] The = Basophils #) system which generated this result tra nsmitted reference range : <=0.2. The reference r boubacar was not used to int erpret this result as normal/abnormal . [facility]2022-04-11 11:43:00 Test Item Value Reference Range Interpretation Comments Glucose Lvl (test code = Glucose Lvl) 418 70-99 [facility]2022-04-11 11:43:00 Test Item Value Reference Range Interpretation Comments BUN (test code = BUN) 22 7-22 [place] 988842-04-11 11:43:00 Test Item Value Reference Range Interpretation Comments Creatinine Lvl (test code = Creatinine 1.10 0.50-1.40 Lvl) [place] 988842-04-11 11:43:00 Test Item Value Reference Range Interpretation Comments Sodium Lvl (test code = Sodium Lvl) 138 135-145 [place] 988842-04-11 11:43:00 Test Item Value Reference Range Interpretation Comments Potassium Lvl (test code = Potassium 4.9 3.5-5.1 Lvl) [facility]2022-04-11 11:43:00 Test Item Value Reference Range Interpretation Comments Chloride Lvl (test code = Chloride Lvl) 113 95-109 [facility]2022-04-11 11:43:00 Test Item Value Reference Range Interpretation Comments CO2 (test code = CO2) 16 24-32 [place] 988842-04-11 11:43:00 Test Item Value Reference Range Interpretation Comments AGAP (test code = AGAP) 13.9 10.0-20.0 [facility]2022-04-11 11:43:00 Test Item Value Reference Range Interpretation Comments Calcium Lvl (test code = Calcium Lvl) 9.0 8.5-10.5 [place] 988842-04-11 11:43:00 Test Item Value Reference Range Interpretation Comments eGFR (test code = eGFR) 86 [facility] PointeRqrsvqgCYAKLRHVLJ9363-25-35 11:43:00 Test Item Value Reference Range Interpretation Comments WBC (test code = WBC) 10.2 3.7-10.4 [place] 927472-04-11 11:43:00 Test Item Value Reference Range Interpretation Comments RBC (test code = RBC) 5.46 4.70-6.10 [place] 927472-04-11 11:43:00 Test Item Value Reference Range Interpretation Comments Hgb (test code = Hgb) 16.3 14.0-18.0 [place] 927472-04-11 11:43:00 Test Item Value Reference Range Interpretation Comments Hct (test code = Hct) 50.0 42.0-54.0 [facility] PointeUtqvapxWRZKRWQLKG2549-22-87 11:43:00 Test Item Value Reference Range Interpretation Comments MCV (test code = MCV) 91.4 80.0-94.0 [facility] PointeMpixjliWYQVRHHMOL5942-81-62 11:43:00 Test Item Value Reference Range Interpretation Comments MCH (test code = MCH) 29.9 pg 27.0-31.0 [facility] PointeOnakfmqWYEJKIMHVW4183-79-35 11:43:00 Test Item Value Reference Range Interpretation Comments MCHC (test code = MCHC) 32.7 32.0-36.0 [facility] PointeAoqkpowWYSNBBNPRV5900-02-28 11:43:00 Test Item Value Reference Range Interpretation Comments RDW (test code = RDW) 15.7 11.5-14.5 [facility] PointeKaljighJCXNGHKMVQ4668-65-23 11:43:00 Test Item Value Reference Range Interpretation Comments Platelet (test code = Platelet) 321 133-450 [facility] PointeJtddjloASURWLMJTM4439-27-18 11:43:00 Test Item Value Reference Range Interpretation Comments MPV (test code = MPV) 8.6 7.4-10.4 [facility] PointeNflzjyxRIKIJZOJOB7330-30-77 11:43:00 Test Item Value Reference Range Interpretation Comments Segs (test code = Segs) 92.0 45.0-75.0 [facility] PointeAgqhuqcWYURRAXXRV7316-96-49 11:43:00 Test Item Value Reference Range Interpretation Comments Lymphocytes (test code = Lymphocytes) 5.2 20.0-40.0 [facility] PointeFmarkoaYIPHIAMIRW7724-58-70 11:43:00 Test Item Value Reference Range Interpretation Comments Monocytes (test code = Monocytes) 1.6 2.0-12.0 [facility] PointeGcotnreFSVNQETBVI3413-05-13 11:43:00 Test Item Value Reference Range Interpretation Comments Basophils (test code = 1.2 See_Comment [Aut omated message] The Basophils) system which ge nerated this result tra nsmitted reference range : <=1.0. The reference r boubacar was not used to int erpret this result as normal/abnormal . [facility] PointeUelnoueKKPBYRFNVH0760-72-78 11:43:00 Test Item Value Reference Range Interpretation Comments Neutrophils # (test code = Neutrophils 9.4 1.5-8.1 #) [place] 927472-04-11 11:43:00 Test Item Value Reference Range Interpretation Comments Lymphocytes # (test code = Lymphocytes 0.5 1.0-5.5 #) [facility] PointeDiurdgfWTPBUUAHOS0936-21-96 11:43:00 Test Item Value Reference Range Interpretation Comments Monocytes # (test code 0.2 See_Comment [Aut omated message] The = Monocytes #) system which generated this result tra nsmitted reference range : <=0.8. The reference r boubacar was not used to int erpret this result as normal/abnormal . [place] 927472-04-11 11:43:00 Test Item Value Reference Range Interpretation Comments Basophils # (test code 0.1 See_Comment [Aut omated message] The = Basophils #) system which generated this result tra nsmitted reference range : <=0.2. The reference r boubacar was not used to int erpret this result as normal/abnormal . [facility]2022-04-11 11:43:00 Test Item Value Reference Range Interpretation Comments Glucose Lvl (test code = Glucose Lvl) 418 70-99 [facility]2022-04-11 11:43:00 Test Item Value Reference Range Interpretation Comments BUN (test code = BUN) 22 7-22 [place] 988842-04-11 11:43:00 Test Item Value Reference Range Interpretation Comments Creatinine Lvl (test code = Creatinine 1.10 0.50-1.40 Lvl) [place] 988842-04-11 11:43:00 Test Item Value Reference Range Interpretation Comments Sodium Lvl (test code = Sodium Lvl) 138 135-145 [place] 988842-04-11 11:43:00 Test Item Value Reference Range Interpretation Comments Potassium Lvl (test code = Potassium 4.9 3.5-5.1 Lvl) [facility]2022-04-11 11:43:00 Test Item Value Reference Range Interpretation Comments Chloride Lvl (test code = Chloride Lvl) 113 95-109 [place] 988842-04-11 11:43:00 Test Item Value Reference Range Interpretation Comments CO2 (test code = CO2) 16 24-32 [place] 988842-04-11 11:43:00 Test Item Value Reference Range Interpretation Comments AGAP (test code = AGAP) 13.9 10.0-20.0 [facility]2022-04-11 11:43:00 Test Item Value Reference Range Interpretation Comments Calcium Lvl (test code = Calcium Lvl) 9.0 8.5-10.5 [facility]2022-04-11 11:43:00 Test Item Value Reference Range Interpretation Comments eGFR (test code = eGFR) 86 [facility]WrjagoqVBTWGYVAEC7947-46-46 11:43:00 Test Item Value Reference Range Interpretation Comments WBC (test code = WBC) 10.2 3.7-10.4 [facility] PointeZorwxxvCQIHHNBEAE5411-25-74 11:43:00 Test Item Value Reference Range Interpretation Comments RBC (test code = RBC) 5.46 4.70-6.10 [facility] PointeLpkzjaaAYNBLXHTCF4768-54-24 11:43:00 Test Item Value Reference Range Interpretation Comments Hgb (test code = Hgb) 16.3 14.0-18.0 [facility] PointeUvdvajvBPYABOCJWK6531-84-35 11:43:00 Test Item Value Reference Range Interpretation Comments Hct (test code = Hct) 50.0 42.0-54.0 [facility] PointeXtjewzqPZSSCLXIID7522-27-47 11:43:00 Test Item Value Reference Range Interpretation Comments MCV (test code = MCV) 91.4 80.0-94.0 [facility] PointeDzhdlcaKCETFXJUWH5460-24-09 11:43:00 Test Item Value Reference Range Interpretation Comments MCH (test code = MCH) 29.9 pg 27.0-31.0 [facility] PointeYkfqyhiIKEQJKAMDJ0497-47-59 11:43:00 Test Item Value Reference Range Interpretation Comments MCHC (test code = MCHC) 32.7 32.0-36.0 [facility] PointeRbaqkrdOYPMBNJWUL9713-23-00 11:43:00 Test Item Value Reference Range Interpretation Comments RDW (test code = RDW) 15.7 11.5-14.5 [facility] PointeJlqjrjpWBOQRTDPWQ2306-68-61 11:43:00 Test Item Value Reference Range Interpretation Comments Platelet (test code = Platelet) 321 133-450 [facility] PointeAxgrakgDTVNWYSMVX9978-77-77 11:43:00 Test Item Value Reference Range Interpretation Comments MPV (test code = MPV) 8.6 7.4-10.4 [place] 927472-04-11 11:43:00 Test Item Value Reference Range Interpretation Comments Segs (test code = Segs) 92.0 45.0-75.0 [place] 927472-04-11 11:43:00 Test Item Value Reference Range Interpretation Comments Lymphocytes (test code = Lymphocytes) 5.2 20.0-40.0 [place] 927472-04-11 11:43:00 Test Item Value Reference Range Interpretation Comments Monocytes (test code = Monocytes) 1.6 2.0-12.0 [place] [address]-04-11 11:43:00 Test Item Value Reference Range Interpretation Comments Basophils (test code = 1.2 See_Comment [Aut omated message] The Basophils) system which ge nerated this result tra nsmitted reference range : <=1.0. The reference r boubacar was not used to int erpret this result as normal/abnormal . [place] 927472-04-11 11:43:00 Test Item Value Reference Range Interpretation Comments Neutrophils # (test code = Neutrophils 9.4 1.5-8.1 #) [place] 927472-04-11 11:43:00 Test Item Value Reference Range Interpretation Comments Lymphocytes # (test code = Lymphocytes 0.5 1.0-5.5 #) [place] 927472-04-11 11:43:00 Test Item Value Reference Range Interpretation Comments Monocytes # (test code 0.2 See_Comment [Aut omated message] The = Monocytes #) system which generated this result tra nsmitted reference range : <=0.8. The reference r boubacar was not used to int erpret this result as normal/abnormal . [place] [address]-04-11 11:43:00 Test Item Value Reference Range Interpretation Comments Basophils # (test code 0.1 See_Comment [Aut omated message] The = Basophils #) system which generated this result tra nsmitted reference range : <=0.2. The reference r boubacar was not used to int erpret this result as normal/abnormal . [facility] [id number] 11:43:00 Test Item Value Reference Range Interpretation Comments Glucose Lvl (test code = Glucose Lvl) 418 70-99 [facility] [id number] 11:43:00 Test Item Value Reference Range Interpretation Comments BUN (test code = BUN) 22 7-22 [place] 988842-04-11 11:43:00 Test Item Value Reference Range Interpretation Comments Creatinine Lvl (test code = Creatinine 1.10 0.50-1.40 Lvl) [facility]2022-04-11 11:43:00 Test Item Value Reference Range Interpretation Comments Sodium Lvl (test code = Sodium Lvl) 138 135-145 [place] 988842-04-11 11:43:00 Test Item Value Reference Range Interpretation Comments Potassium Lvl (test code = Potassium 4.9 3.5-5.1 Lvl) [place] 988842-04-11 11:43:00 Test Item Value Reference Range Interpretation Comments Chloride Lvl (test code = Chloride Lvl) 113 95-109 [facility]2022-04-11 11:43:00 Test Item Value Reference Range Interpretation Comments CO2 (test code = CO2) 16 24-32 [place] 988842-04-11 11:43:00 Test Item Value Reference Range Interpretation Comments AGAP (test code = AGAP) 13.9 10.0-20.0 [facility]2022-04-11 11:43:00 Test Item Value Reference Range Interpretation Comments Calcium Lvl (test code = Calcium Lvl) 9.0 8.5-10.5 [facility]2022-04-11 11:43:00 Test Item Value Reference Range Interpretation Comments eGFR (test code = eGFR) 86 [place] 927472-04-11 11:43:00 Test Item Value Reference Range Interpretation Comments WBC (test code = WBC) 10.2 3.7-10.4 [place] 927472-04-11 11:43:00 Test Item Value Reference Range Interpretation Comments RBC (test code = RBC) 5.46 4.70-6.10 [place] 927472-04-11 11:43:00 Test Item Value Reference Range Interpretation Comments Hgb (test code = Hgb) 16.3 14.0-18.0 [place] 927472-04-11 11:43:00 Test Item Value Reference Range Interpretation Comments Hct (test code = Hct) 50.0 42.0-54.0 [place] 927472-04-11 11:43:00 Test Item Value Reference Range Interpretation Comments MCV (test code = MCV) 91.4 80.0-94.0 [place] 927472-04-11 11:43:00 Test Item Value Reference Range Interpretation Comments MCH (test code = MCH) 29.9 pg 27.0-31.0 [place] 927472-04-11 11:43:00 Test Item Value Reference Range Interpretation Comments MCHC (test code = MCHC) 32.7 32.0-36.0 [place] 927472-04-11 11:43:00 Test Item Value Reference Range Interpretation Comments RDW (test code = RDW) 15.7 11.5-14.5 [place] 927472-04-11 11:43:00 Test Item Value Reference Range Interpretation Comments Platelet (test code = Platelet) 321 133-450 [facility] PointeDmmuzjvDWVYYUTUWG5001-32-79 11:43:00 Test Item Value Reference Range Interpretation Comments MPV (test code = MPV) 8.6 7.4-10.4 [facility] PointeJhmocrtFRNMBFEHPA1760-22-96 11:43:00 Test Item Value Reference Range Interpretation Comments Segs (test code = Segs) 92.0 45.0-75.0 [facility] PointeAvsgmceETQQGZPTKZ5960-92-10 11:43:00 Test Item Value Reference Range Interpretation Comments Lymphocytes (test code = Lymphocytes) 5.2 20.0-40.0 [facility] PointeDvghoifMCOKAAGTIY5834-05-62 11:43:00 Test Item Value Reference Range Interpretation Comments Monocytes (test code = Monocytes) 1.6 2.0-12.0 [place] 927472-04-11 11:43:00 Test Item Value Reference Range Interpretation Comments Basophils (test code = 1.2 See_Comment [Aut omated message] The Basophils) system which ge nerated this result tra nsmitted reference range : <=1.0. The reference r boubacar was not used to int erpret this result as normal/abnormal . [facility] PointeHekajekNYOHDMSVSD1557-34-43 11:43:00 Test Item Value Reference Range Interpretation Comments Neutrophils # (test code = Neutrophils 9.4 1.5-8.1 #) [facility] PointeLcwrrqqKTNAPSDWFP7934-64-10 11:43:00 Test Item Value Reference Range Interpretation Comments Lymphocytes # (test code = Lymphocytes 0.5 1.0-5.5 #) [facility] PointeCbysyetIBUUSDSGXY5910-19-05 11:43:00 Test Item Value Reference Range Interpretation Comments Monocytes # (test code 0.2 See_Comment [Aut omated message] The = Monocytes #) system which generated this result tra nsmitted reference range : <=0.8. The reference r boubacar was not used to int erpret this result as normal/abnormal . [place] 927472-04-11 11:43:00 Test Item Value Reference Range Interpretation Comments Basophils # (test code 0.1 See_Comment [Aut omated message] The = Basophils #) system which generated this result tra nsmitted reference range : <=0.2. The reference r boubacar was not used to int erpret this result as normal/abnormal . [facility]2022-04-11 11:43:00 Test Item Value Reference Range Interpretation Comments Glucose Lvl (test code = Glucose Lvl) 418 70-99 [facility]2022-04-11 11:43:00 Test Item Value Reference Range Interpretation Comments BUN (test code = BUN) 22 7-22 [place] 988842-04-11 11:43:00 Test Item Value Reference Range Interpretation Comments Creatinine Lvl (test code = Creatinine 1.10 0.50-1.40 Lvl) [place] 988842-04-11 11:43:00 Test Item Value Reference Range Interpretation Comments Sodium Lvl (test code = Sodium Lvl) 138 135-145 [place] 988842-04-11 11:43:00 Test Item Value Reference Range Interpretation Comments Potassium Lvl (test code = Potassium 4.9 3.5-5.1 Lvl) [place] 988842-04-11 11:43:00 Test Item Value Reference Range Interpretation Comments Chloride Lvl (test code = Chloride Lvl) 113 95-109 [facility]2022-04-11 11:43:00 Test Item Value Reference Range Interpretation Comments CO2 (test code = CO2) 16 24-32 [place] 988842-04-11 11:43:00 Test Item Value Reference Range Interpretation Comments AGAP (test code = AGAP) 13.9 10.0-20.0 [facility]2022-04-11 11:43:00 Test Item Value Reference Range Interpretation Comments Calcium Lvl (test code = Calcium Lvl) 9.0 8.5-10.5 [facility]2022-04-11 11:43:00 Test Item Value Reference Range Interpretation Comments eGFR (test code = eGFR) 86 [facility] PointeAmcfgmgEJPQNDLHPS2604-19-24 11:43:00 Test Item Value Reference Range Interpretation Comments WBC (test code = WBC) 10.2 3.7-10.4 [facility] PointeNxoirakMRJBNOAVEA5233-02-05 11:43:00 Test Item Value Reference Range Interpretation Comments RBC (test code = RBC) 5.46 4.70-6.10 [facility] PointeScesfnkSZBIFTDUKL7725-65-99 11:43:00 Test Item Value Reference Range Interpretation Comments Hgb (test code = Hgb) 16.3 14.0-18.0 [facility] PointeVaxlwudSYILNAMVEG3475-42-43 11:43:00 Test Item Value Reference Range Interpretation Comments Hct (test code = Hct) 50.0 42.0-54.0 [facility] PointeAjjmngiSYTUSMSGFJ7478-80-44 11:43:00 Test Item Value Reference Range Interpretation Comments MCV (test code = MCV) 91.4 80.0-94.0 [facility] PointeJtqbsvyIDNVKZTVOS1058-58-42 11:43:00 Test Item Value Reference Range Interpretation Comments MCH (test code = MCH) 29.9 pg 27.0-31.0 [facility] PointeNarfvhqEZMLHBALAC8161-56-09 11:43:00 Test Item Value Reference Range Interpretation Comments MCHC (test code = MCHC) 32.7 32.0-36.0 [facility] PointeXlsdhuxOMZWOSEXSB4644-07-18 11:43:00 Test Item Value Reference Range Interpretation Comments RDW (test code = RDW) 15.7 11.5-14.5 [place] 927472-04-11 11:43:00 Test Item Value Reference Range Interpretation Comments Platelet (test code = Platelet) 321 854-450 [facility] PointeRgaaampEVOGEBGZKW0780-01-84 11:43:00 Test Item Value Reference Range Interpretation Comments MPV (test code = MPV) 8.6 7.4-10.4 [facility] PointeZgiavrcRHJJSOKCNG5469-66-60 11:43:00 Test Item Value Reference Range Interpretation Comments Segs (test code = Segs) 92.0 45.0-75.0 [place] [address]-04-11 11:43:00 Test Item Value Reference Range Interpretation Comments Lymphocytes (test code = Lymphocytes) 5.2 20.0-40.0 [place] [address]-04-11 11:43:00 Test Item Value Reference Range Interpretation Comments Monocytes (test code = Monocytes) 1.6 2.0-12.0 [place] [address]-04-11 11:43:00 Test Item Value Reference Range Interpretation Comments Basophils (test code = 1.2 See_Comment [Aut omated message] The Basophils) system which ge nerated this result tra nsmitted reference range : <=1.0. The reference r boubacar was not used to int erpret this result as normal/abnormal . [place] [address]-04-11 11:43:00 Test Item Value Reference Range Interpretation Comments Neutrophils # (test code = Neutrophils 9.4 1.5-8.1 #) [place] 927472-04-11 11:43:00 Test Item Value Reference Range Interpretation Comments Lymphocytes # (test code = Lymphocytes 0.5 1.0-5.5 #) [place] [address]-04-11 11:43:00 Test Item Value Reference Range Interpretation Comments Monocytes # (test code 0.2 See_Comment [Aut omated message] The = Monocytes #) system which generated this result tra nsmitted reference range : <=0.8. The reference r boubacar was not used to int erpret this result as normal/abnormal . [place] 927472-04-11 11:43:00 Test Item Value Reference Range Interpretation Comments Basophils # (test code 0.1 See_Comment [Aut omated message] The = Basophils #) system which generated this result tra nsmitted reference range : <=0.2. The reference r boubacar was not used to int erpret this result as normal/abnormal . [place] 988842-04-11 11:43:00 Test Item Value Reference Range Interpretation Comments Glucose Lvl (test code = Glucose Lvl) 418 70-99 [place] 988842-04-11 11:43:00 Test Item Value Reference Range Interpretation Comments BUN (test code = BUN) 22 7-22 [facility]2022-04-11 11:43:00 Test Item Value Reference Range Interpretation Comments Creatinine Lvl (test code = Creatinine 1.10 0.50-1.40 Lvl) [facility]2022-04-11 11:43:00 Test Item Value Reference Range Interpretation Comments Sodium Lvl (test code = Sodium Lvl) 138 135-145 [place] 988842-04-11 11:43:00 Test Item Value Reference Range Interpretation Comments Potassium Lvl (test code = Potassium 4.9 3.5-5.1 Lvl) [facility]2022-04-11 11:43:00 Test Item Value Reference Range Interpretation Comments Chloride Lvl (test code = Chloride Lvl) 113 95-109 [facility]2022-04-11 11:43:00 Test Item Value Reference Range Interpretation Comments CO2 (test code = CO2) 16 24-32 [place] 988842-04-11 11:43:00 Test Item Value Reference Range Interpretation Comments AGAP (test code = AGAP) 13.9 10.0-20.0 [facility]2022-04-11 11:43:00 Test Item Value Reference Range Interpretation Comments Calcium Lvl (test code = Calcium Lvl) 9.0 8.5-10.5 [facility]2022-04-11 11:43:00 Test Item Value Reference Range Interpretation Comments eGFR (test code = eGFR) 86 [facility] PointeOfbtexuGKPETRKXML8724-10-23 11:43:00 Test Item Value Reference Range Interpretation Comments WBC (test code = WBC) 10.2 3.7-10.4 [place] 927472-04-11 11:43:00 Test Item Value Reference Range Interpretation Comments RBC (test code = RBC) 5.46 4.70-6.10 [place] 927472-04-11 11:43:00 Test Item Value Reference Range Interpretation Comments Hgb (test code = Hgb) 16.3 14.0-18.0 [place] 927472-04-11 11:43:00 Test Item Value Reference Range Interpretation Comments Hct (test code = Hct) 50.0 42.0-54.0 [place] 927472-04-11 11:43:00 Test Item Value Reference Range Interpretation Comments MCV (test code = MCV) 91.4 80.0-94.0 [place] 927472-04-11 11:43:00 Test Item Value Reference Range Interpretation Comments MCH (test code = MCH) 29.9 pg 27.0-31.0 [place] 927472-04-11 11:43:00 Test Item Value Reference Range Interpretation Comments MCHC (test code = MCHC) 32.7 32.0-36.0 [place] 927472-04-11 11:43:00 Test Item Value Reference Range Interpretation Comments RDW (test code = RDW) 15.7 11.5-14.5 [place] 927472-04-11 11:43:00 Test Item Value Reference Range Interpretation Comments Platelet (test code = Platelet) 321 133-450 [facility] PointeJdyorljTICFORTIKI2845-29-38 11:43:00 Test Item Value Reference Range Interpretation Comments MPV (test code = MPV) 8.6 7.4-10.4 [facility] PointeSlvnzzyQRRIQWPBXN2677-23-51 11:43:00 Test Item Value Reference Range Interpretation Comments Segs (test code = Segs) 92.0 45.0-75.0 [facility] PointeUmdwatmDWLSQWUSNU4077-46-10 11:43:00 Test Item Value Reference Range Interpretation Comments Lymphocytes (test code = Lymphocytes) 5.2 20.0-40.0 [place] 927472-04-11 11:43:00 Test Item Value Reference Range Interpretation Comments Monocytes (test code = Monocytes) 1.6 2.0-12.0 [place] 927472-04-11 11:43:00 Test Item Value Reference Range Interpretation Comments Basophils (test code = 1.2 See_Comment [Aut omated message] The Basophils) system which ge nerated this result tra nsmitted reference range : <=1.0. The reference r boubacar was not used to int erpret this result as normal/abnormal . [facility] PointeKqynortDIDZHWBXAH4141-31-31 11:43:00 Test Item Value Reference Range Interpretation Comments Neutrophils # (test code = Neutrophils 9.4 1.5-8.1 #) [place] 927472-04-11 11:43:00 Test Item Value Reference Range Interpretation Comments Lymphocytes # (test code = Lymphocytes 0.5 1.0-5.5 #) [facility] PointeXmsydgrFSTOYYXFZH8562-33-81 11:43:00 Test Item Value Reference Range Interpretation Comments Monocytes # (test code 0.2 See_Comment [Aut omated message] The = Monocytes #) system which generated this result tra nsmitted reference range : <=0.8. The reference r boubacar was not used to int erpret this result as normal/abnormal . [place] 927472-04-11 11:43:00 Test Item Value Reference Range Interpretation Comments Basophils # (test code 0.1 See_Comment [Aut omated message] The = Basophils #) system which generated this result tra nsmitted reference range : <=0.2. The reference r boubacar was not used to int erpret this result as normal/abnormal . [facility]2022-04-11 11:43:00 Test Item Value Reference Range Interpretation Comments Glucose Lvl (test code = Glucose Lvl) 418 70-99 [facility] [id number] 11:43:00 Test Item Value Reference Range Interpretation Comments BUN (test code = BUN) 22 7-22 [place] 988842-04-11 11:43:00 Test Item Value Reference Range Interpretation Comments Creatinine Lvl (test code = Creatinine 1.10 0.50-1.40 Lvl) [facility]2022-04-11 11:43:00 Test Item Value Reference Range Interpretation Comments Sodium Lvl (test code = Sodium Lvl) 138 135-145 [facility]2022-04-11 11:43:00 Test Item Value Reference Range Interpretation Comments Potassium Lvl (test code = Potassium 4.9 3.5-5.1 Lvl) [facility]2022-04-11 11:43:00 Test Item Value Reference Range Interpretation Comments Chloride Lvl (test code = Chloride Lvl) 113 95-109 [facility] [id number] 11:43:00 Test Item Value Reference Range Interpretation Comments CO2 (test code = CO2) 16 24-32 [place] 988842-04-11 11:43:00 Test Item Value Reference Range Interpretation Comments AGAP (test code = AGAP) 13.9 10.0-20.0 [place] 988[place]-04-11 11:43:00 Test Item Value Reference Range Interpretation Comments Calcium Lvl (test code = Calcium Lvl) 9.0 8.5-10.5 [facility]2022-04-11 11:43:00 Test Item Value Reference Range Interpretation Comments eGFR (test code = eGFR) 86 [facility] PointeGngogrrAFJATOCIJS0854-60-10 11:43:00 Test Item Value Reference Range Interpretation Comments WBC (test code = WBC) 10.2 3.7-10.4 [facility] PointeBdgwtzeFNPGDUBEWL8949-94-83 11:43:00 Test Item Value Reference Range Interpretation Comments RBC (test code = RBC) 5.46 4.70-6.10 [facility] PointeGunqytpUSFRHZMLVU3525-22-68 11:43:00 Test Item Value Reference Range Interpretation Comments Hgb (test code = Hgb) 16.3 14.0-18.0 [facility] PointeVlaknelNUDXCCXLGA9445-55-44 11:43:00 Test Item Value Reference Range Interpretation Comments Hct (test code = Hct) 50.0 42.0-54.0 [facility] PointeXjrehcbUOZLZTASPI5238-17-05 11:43:00 Test Item Value Reference Range Interpretation Comments MCV (test code = MCV) 91.4 80.0-94.0 [facility] PointeVrjgkdxMJCNPARKDT5496-55-37 11:43:00 Test Item Value Reference Range Interpretation Comments MCH (test code = MCH) 29.9 pg 27.0-31.0 [facility] PointeAlkyrewRETSQJSRIM8960-29-59 11:43:00 Test Item Value Reference Range Interpretation Comments MCHC (test code = MCHC) 32.7 32.0-36.0 [facility] PointeSwqbvzcYHIWWPCTOY1846-20-33 11:43:00 Test Item Value Reference Range Interpretation Comments RDW (test code = RDW) 15.7 11.5-14.5 [facility] PointeGkvhzwgTXAFYMBPSS9370-47-50 11:43:00 Test Item Value Reference Range Interpretation Comments Platelet (test code = Platelet) 321 133-450 [facility] PointeOurlimdTETYJFHGDT9469-96-93 11:43:00 Test Item Value Reference Range Interpretation Comments MPV (test code = MPV) 8.6 7.4-10.4 [facility] PointeLauqkhyIPYBDZLBEL4049-82-99 11:43:00 Test Item Value Reference Range Interpretation Comments Segs (test code = Segs) 92.0 45.0-75.0 [place] [address]-04-11 11:43:00 Test Item Value Reference Range Interpretation Comments Lymphocytes (test code = Lymphocytes) 5.2 20.0-40.0 [place] [address]-04-11 11:43:00 Test Item Value Reference Range Interpretation Comments Monocytes (test code = Monocytes) 1.6 2.0-12.0 [place] 927472-04-11 11:43:00 Test Item Value Reference Range Interpretation Comments Basophils (test code = 1.2 See_Comment [Aut omated message] The Basophils) system which ge nerated this result tra nsmitted reference range : <=1.0. The reference r boubacar was not used to int erpret this result as normal/abnormal . [place] 927472-04-11 11:43:00 Test Item Value Reference Range Interpretation Comments Neutrophils # (test code = Neutrophils 9.4 1.5-8.1 #) [place] 927472-04-11 11:43:00 Test Item Value Reference Range Interpretation Comments Lymphocytes # (test code = Lymphocytes 0.5 1.0-5.5 #) [place] 927472-04-11 11:43:00 Test Item Value Reference Range Interpretation Comments Monocytes # (test code 0.2 See_Comment [Aut omated message] The = Monocytes #) system which generated this result tra nsmitted reference range : <=0.8. The reference r boubacar was not used to int erpret this result as normal/abnormal . [place] 927472-04-11 11:43:00 Test Item Value Reference Range Interpretation Comments Basophils # (test code 0.1 See_Comment [Aut omated message] The = Basophils #) system which generated this result tra nsmitted reference range : <=0.2. The reference r boubacar was not used to int erpret this result as normal/abnormal . [facility] [id number] 11:43:00 Test Item Value Reference Range Interpretation Comments Glucose Lvl (test code = Glucose Lvl) 418 70-99 [facility]2022-04-11 11:43:00 Test Item Value Reference Range Interpretation Comments BUN (test code = BUN) 22 7-22 [facility] [id number] 11:43:00 Test Item Value Reference Range Interpretation Comments Creatinine Lvl (test code = Creatinine 1.10 0.50-1.40 Lvl) [facility]2022-04-11 11:43:00 Test Item Value Reference Range Interpretation Comments Sodium Lvl (test code = Sodium Lvl) 138 135-145 [place] 988842-04-11 11:43:00 Test Item Value Reference Range Interpretation Comments Potassium Lvl (test code = Potassium 4.9 3.5-5.1 Lvl) [facility]2022-04-11 11:43:00 Test Item Value Reference Range Interpretation Comments Chloride Lvl (test code = Chloride Lvl) 113 95-109 [place] 988842-04-11 11:43:00 Test Item Value Reference Range Interpretation Comments CO2 (test code = CO2) 16 24-32 [place] 988842-04-11 11:43:00 Test Item Value Reference Range Interpretation Comments AGAP (test code = AGAP) 13.9 10.0-20.0 [facility]2022-04-11 11:43:00 Test Item Value Reference Range Interpretation Comments Calcium Lvl (test code = Calcium Lvl) 9.0 8.5-10.5 [facility]2022-04-11 11:43:00 Test Item Value Reference Range Interpretation Comments eGFR (test code = eGFR) 86 [facility]BbvckadWHLRRSZQJS5257-19-37 11:43:00 Test Item Value Reference Range Interpretation Comments WBC (test code = WBC) 10.2 3.7-10.4 [place] 927472-04-11 11:43:00 Test Item Value Reference Range Interpretation Comments RBC (test code = RBC) 5.46 4.70-6.10 [place] 927472-04-11 11:43:00 Test Item Value Reference Range Interpretation Comments Hgb (test code = Hgb) 16.3 14.0-18.0 [place] 927472-04-11 11:43:00 Test Item Value Reference Range Interpretation Comments Hct (test code = Hct) 50.0 42.0-54.0 [place] 927472-04-11 11:43:00 Test Item Value Reference Range Interpretation Comments MCV (test code = MCV) 91.4 80.0-94.0 [facility] PointeVfupyooFYPTQHMIDY7463-27-75 11:43:00 Test Item Value Reference Range Interpretation Comments MCH (test code = MCH) 29.9 pg 27.0-31.0 [facility] PointeEszqywmEBIOENPJBH5499-82-36 11:43:00 Test Item Value Reference Range Interpretation Comments MCHC (test code = MCHC) 32.7 32.0-36.0 [facility] PointeMjlfpxuZDRCMVHSJH5036-76-69 11:43:00 Test Item Value Reference Range Interpretation Comments RDW (test code = RDW) 15.7 11.5-14.5 [place] 927472-04-11 11:43:00 Test Item Value Reference Range Interpretation Comments Platelet (test code = Platelet) 321 133-450 [facility] PointeGlqltknUDYGYPHZXW8312-44-61 11:43:00 Test Item Value Reference Range Interpretation Comments MPV (test code = MPV) 8.6 7.4-10.4 [facility] PointeZkelhquQZXTDHRTQF3301-71-30 11:43:00 Test Item Value Reference Range Interpretation Comments Segs (test code = Segs) 92.0 45.0-75.0 [facility] PointeBpgfxuqNLIQICYXFC7830-38-84 11:43:00 Test Item Value Reference Range Interpretation Comments Lymphocytes (test code = Lymphocytes) 5.2 20.0-40.0 [facility] PointeWkwqgqbNXRXWUBJHM5071-75-83 11:43:00 Test Item Value Reference Range Interpretation Comments Monocytes (test code = Monocytes) 1.6 2.0-12.0 [place] 927472-04-11 11:43:00 Test Item Value Reference Range Interpretation Comments Basophils (test code = 1.2 See_Comment [Aut omated message] The Basophils) system which ge nerated this result tra nsmitted reference range : <=1.0. The reference r boubacar was not used to int erpret this result as normal/abnormal . [facility] PointeJteassiJBKLSJCDLK5998-75-75 11:43:00 Test Item Value Reference Range Interpretation Comments Neutrophils # (test code = Neutrophils 9.4 1.5-8.1 #) [facility] PointeWulegqtUMVHTHKXFP6770-65-84 11:43:00 Test Item Value Reference Range Interpretation Comments Lymphocytes # (test code = Lymphocytes 0.5 1.0-5.5 #) [facility] PointeArvlgllDZZTBSLOPX4738-09-79 11:43:00 Test Item Value Reference Range Interpretation Comments Monocytes # (test code 0.2 See_Comment [Aut omated message] The = Monocytes #) system which generated this result tra nsmitted reference range : <=0.8. The reference r boubacar was not used to int erpret this result as normal/abnormal . [facility] PointeExibwpdXDSJAFIZSL5894-19-98 11:43:00 Test Item Value Reference Range Interpretation Comments Basophils # (test code 0.1 See_Comment [Aut omated message] The = Basophils #) system which generated this result tra nsmitted reference range : <=0.2. The reference r boubacar was not used to int erpret this result as normal/abnormal . [facility]EkbofeaDXSQDEUWZX2685-27-32 09:18:00 Test Item Value Reference Range Interpretation Comments Coronavirus (COVID-19) Not Detected (10/21/21 OUMOU (test code = 4:18 AM) Coronavirus (COVID-19) OUMOU) [facility]anoQbhpngeUBRESHYMNU1715-97-14 09:18:00 Test Item Value Reference Range Interpretation Comments Coronavirus (COVID-19) Not Detected (10/21/21 OUMOU (test code = 4:18 AM) Coronavirus (COVID-19) OUMOU) [facility]anoHqouhpkMKYXBEUSIS1412-27-44 09:18:00 Test Item Value Reference Range Interpretation Comments Coronavirus (COVID-19) Not Detected (10/21/21 OUMOU (test code = 4:18 AM) Coronavirus (COVID-19) OUMOU) [facility]anoYijpkdmRYCOUVBLOC8601-78-85 09:18:00 Test Item Value Reference Range Interpretation Comments Coronavirus (COVID-19) Not Detected (10/21/21 OUMOU (test code = 4:18 AM) Coronavirus (COVID-19) OUMOU) [facility]anoOimrpoyNPDEFQDEWH2154-68-61 09:18:00 Test Item Value Reference Range Interpretation Comments Coronavirus (COVID-19) Not Detected (10/21/21 OUMOU (test code = 4:18 AM) Coronavirus (COVID-19) OUMOU) [facility]anoJlmnoczJBRDMPXBAU7785-11-28 09:18:00 Test Item Value Reference Range Interpretation Comments Coronavirus (COVID-19) Not Detected (10/21/21 OUMOU (test code = 4:18 AM) Coronavirus (COVID-19) OUMOU) [facility] VdoyjrhPRTNMWVZMJ2243-38-78 09:18:00 Test Item Value Reference Range Interpretation Comments Coronavirus (COVID-19) Not Detected (10/21/21 OUMOU (test code = 4:18 AM) Coronavirus (COVID-19) OUMOU) [facility] LfypskqRFBDHMERTH9989-96-65 09:18:00 Test Item Value Reference Range Interpretation Comments Coronavirus (COVID-19) Not Detected (10/21/21 OUMOU (test code = 4:18 AM) Coronavirus (COVID-19) OUMOU) [facility] [id number] 08:19:00 Test Item Value Reference Range Interpretation Comments UA Sq Epi (test code = UA Sq Epi) None [facility]: [id number] 08:19:00 Test Item Value Reference Range Interpretation Comments Culture: Urine (test Holding For Better code = Culture: Urine) [facility]RIAX[facility]:SUSC:PT:ISOLATE:ORDQN:[id number] 08:19:00 Test Item Value Reference Range Interpretation Comments Culture: Urine (test >100,000 CFU/mL code = Culture: Providencia stuartii Urine) [facility]annCEFTRIAXONE:SUSC:PT:ISOLATE:ORDQN:[id number] 08:19:00 Test Item Value Reference Range Interpretation Comments Providencia stuartii Providencia stuartii (test code = Providencia stuartii) [facility] [id number] 08:19:00 Test Item Value Reference Range Interpretation Comments UA Color (test code = Yellow *NA*(10/21/21 3:19 UA Color) AM) [facility] [id number] 08:19:00 Test Item Value Reference Range Interpretation Comments UA Turbidity (test code Marked *ABN*(10/21/21 = UA Turbidity) 3:19 AM) [facility] [id number] 08:19:00 Test Item Value Reference Range Interpretation Comments UA Spec Grav (test code = UA Spec 1.013 1 Grav) [facility] [id number] 08:19:00 Test Item Value Reference Range Interpretation Comments UA pH (test code = UA pH) 5.0 1 5.0-8.0 [facility] AND [id number] 08:19:00 Test Item Value Reference Range Interpretation Comments UA Protein (test code = UA Negative mg/dL Protein) [facility] AND [id number] 08:19:00 Test Item Value Reference Range Interpretation Comments UA Glucose (test code = UA Negative mg/dL Glucose) [facility] AND [id number] 08:19:00 Test Item Value Reference Range Interpretation Comments UA Ketones (test code = UA Negative mg/dL Ketones) [facility] AND [id number] 08:19:00 Test Item Value Reference Range Interpretation Comments UA Bili (test code = Negative *NA*(10/21/21 UA Bili) 3:19 AM) [facility] AND [id number] 08:19:00 Test Item Value Reference Range Interpretation Comments UA Blood (test code = Small *ABN*(10/21/21 UA Blood) 3:19 AM) [facility] AND [id number] 08:19:00 Test Item Value Reference Range Interpretation Comments UA Urobilinogen (test code = UA no gt 0.1-1.0 Urobilinogen) [facility] AND [id number] 08:19:00 Test Item Value Reference Range Interpretation Comments UA Nitrite (test code Positive *ABN*(10/21/21 = UA Nitrite) 3:19 AM) [facility] AND [id number] 08:19:00 Test Item Value Reference Range Interpretation Comments UA Leuk Est (test code Large *ABN*(10/21/21 3:19 = UA Leuk Est) AM) [facility] AND [id number] 08:19:00 Test Item Value Reference Range Interpretation Comments UA WBC (test code = no gt See_Comment [Automa lester message] The UA WBC) system which ge nerated this result transmit lester reference range : <=5. The reference range was not used to interpr et this result as dany l/abnormal. [facility] AND [id number] 08:19:00 Test Item Value Reference Range Interpretation Comments UA RBC (test code = 8 See_Comment [Automa lester message] The UA RBC) system which ge nerated this result transmit lester reference range : <=2. The reference range was not used to interpr et this result as dany l/abnormal. [facility] [id number] 08:19:00 Test Item Value Reference Range Interpretation Comments UA Bacteria (test code = UA Occasional /HPF Bacteria) [facility] [id number] 08:19:00 Test Item Value Reference Range Interpretation Comments UA Mucus (test code = UA Mucus) Few /LPF [facility] [id number] 08:19:00 Test Item Value Reference Range Interpretation Comments UA Amorph Christi (test code = Occasional /HPF UA Amorph Christi) [facility] [id number] 08:19:00 Test Item Value Reference Range Interpretation Comments UA Sq Epi (test code = UA Sq Epi) None [facility]en [facility]annCulture: [id number] 08:19:00 Test Item Value Reference Range Interpretation Comments Culture: Urine (test Holding For Better code = Culture: Urine) Growth [facility] RenaissanceWesRIAXONE:SUSC:PT:ISOLATE:ORDQN:[id number] 08:19:00 Test Item Value Reference Range Interpretation Comments Culture: Urine (test >100,000 CFU/mL code = Culture: Providencia stuartii Urine) [facility] RenaissanceElyseFTRIAXONE:SUSC:PT:ISOLATE:ORDQN:[id number] 08:19:00 Test Item Value Reference Range Interpretation Comments Providencia stuartii Providencia stuartii (test code = Providencia stuartii) [facility] AND [id number] 08:19:00 Test Item Value Reference Range Interpretation Comments UA Color (test code = Yellow *NA*(10/21/21 3:19 UA Color) AM) [facility] AND [id number] 08:19:00 Test Item Value Reference Range Interpretation Comments UA Turbidity (test code Marked *ABN*(10/21/21 = UA Turbidity) 3:19 AM) [facility] [id number] 08:19:00 Test Item Value Reference Range Interpretation Comments UA Spec Grav (test code = UA Spec 1.013 1 Grav) [facility] [id number] 08:19:00 Test Item Value Reference Range Interpretation Comments UA pH (test code = UA pH) 5.0 1 5.0-8.0 [facility] AND [id number] 08:19:00 Test Item Value Reference Range Interpretation Comments UA Protein (test code = UA Negative mg/dL Protein) [facility] AND [id number] 08:19:00 Test Item Value Reference Range Interpretation Comments UA Glucose (test code = UA Negative mg/dL Glucose) [facility] AND [id number] 08:19:00 Test Item Value Reference Range Interpretation Comments UA Ketones (test code = UA Negative mg/dL Ketones) [facility] AND [id number] 08:19:00 Test Item Value Reference Range Interpretation Comments UA Bili (test code = Negative *NA*(10/21/21 UA Bili) 3:19 AM) [facility] AND [id number] 08:19:00 Test Item Value Reference Range Interpretation Comments UA Blood (test code = Small *ABN*(10/21/21 UA Blood) 3:19 AM) [facility] AND [id number] 08:19:00 Test Item Value Reference Range Interpretation Comments UA Urobilinogen (test code = UA no gt 0.1-1.0 Urobilinogen) [facility] AND [id number] 08:19:00 Test Item Value Reference Range Interpretation Comments UA Nitrite (test code Positive *ABN*(10/21/21 = UA Nitrite) 3:19 AM) [facility] AND [id number] 08:19:00 Test Item Value Reference Range Interpretation Comments UA Leuk Est (test code Large *ABN*(10/21/21 3:19 = UA Leuk Est) AM) [facility] AND [id number] 08:19:00 Test Item Value Reference Range Interpretation Comments UA WBC (test code = no gt See_Comment [Automa lester message] The UA WBC) system which ge nerated this result transmit lester reference range : <=5. The reference range was not used to interpr et this result as dany l/abnormal. [facility] AND [id number] 08:19:00 Test Item Value Reference Range Interpretation Comments UA RBC (test code = 8 See_Comment [Automa lester message] The UA RBC) system which ge nerated this result transmit lester reference range : <=2. The reference range was not used to interpr et this result as dany l/abnormal. [facility] [id number] 08:19:00 Test Item Value Reference Range Interpretation Comments UA Bacteria (test code = UA Occasional /HPF Bacteria) [facility] [id number] 08:19:00 Test Item Value Reference Range Interpretation Comments UA Mucus (test code = UA Mucus) Few /LPF [facility] [id number] 08:19:00 Test Item Value Reference Range Interpretation Comments UA Amorph Christi (test code = Occasional /HPF UA Amorph Christi) [facility] [id number] 08:19:00 Test Item Value Reference Range Interpretation Comments UA Sq Epi (test code = UA Sq Epi) None [facility]en [facility]annCulture: [id number] 08:19:00 Test Item Value Reference Range Interpretation Comments Culture: Urine (test Holding For Better code = Culture: Urine) Growth [facility] ValdezFTRIAXONE:SUSC:PT:ISOLATE:ORDQN:[id number] 08:19:00 Test Item Value Reference Range Interpretation Comments Culture: Urine (test >100,000 CFU/mL code = Culture: Providencia stuartii Urine) [facility] JasonCEFTRIAXONE:SUSC:PT:ISOLATE:ORDQN:[id number] 08:19:00 Test Item Value Reference Range Interpretation Comments Providencia stuartii Providencia stuartii (test code = Providencia stuartii) [facility] [id number] 08:19:00 Test Item Value Reference Range Interpretation Comments UA Color (test code = Yellow *NA*(10/21/21 3:19 UA Color) AM) [facility] [id number] 08:19:00 Test Item Value Reference Range Interpretation Comments UA Turbidity (test code Marked *ABN*(10/21/21 = UA Turbidity) 3:19 AM) [facility] [id number] 08:19:00 Test Item Value Reference Range Interpretation Comments UA Spec Grav (test code = UA Spec 1.013 1 Grav) [facility] [id number] 08:19:00 Test Item Value Reference Range Interpretation Comments UA pH (test code = UA pH) 5.0 1 5.0-8.0 [facility] AND [id number] 08:19:00 Test Item Value Reference Range Interpretation Comments UA Protein (test code = UA Negative mg/dL Protein) [facility] AND [id number] 08:19:00 Test Item Value Reference Range Interpretation Comments UA Glucose (test code = UA Negative mg/dL Glucose) [facility] AND [id number] 08:19:00 Test Item Value Reference Range Interpretation Comments UA Ketones (test code = UA Negative mg/dL Ketones) [facility] AND [id number] 08:19:00 Test Item Value Reference Range Interpretation Comments UA Bili (test code = Negative *NA*(10/21/21 UA Bili) 3:19 AM) [facility] AND [id number] 08:19:00 Test Item Value Reference Range Interpretation Comments UA Blood (test code = Small *ABN*(10/21/21 UA Blood) 3:19 AM) [facility] AND [id number] 08:19:00 Test Item Value Reference Range Interpretation Comments UA Urobilinogen (test code = UA no gt 0.1-1.0 Urobilinogen) [facility] AND [id number] 08:19:00 Test Item Value Reference Range Interpretation Comments UA Nitrite (test code Positive *ABN*(10/21/21 = UA Nitrite) 3:19 AM) [facility] AND [id number] 08:19:00 Test Item Value Reference Range Interpretation Comments UA Leuk Est (test code Large *ABN*(10/21/21 3:19 = UA Leuk Est) AM) [facility] AND [id number] 08:19:00 Test Item Value Reference Range Interpretation Comments UA WBC (test code = no gt See_Comment [Automa lester message] The UA WBC) system which ge nerated this result transmit lester reference range : <=5. The reference range was not used to interpr et this result as dany l/abnormal. [facility] AND [id number] 08:19:00 Test Item Value Reference Range Interpretation Comments UA RBC (test code = 8 See_Comment [Automa lester message] The UA RBC) system which ge nerated this result transmit lester reference range : <=2. The reference range was not used to interpr et this result as dany l/abnormal. [facility] [id number] 08:19:00 Test Item Value Reference Range Interpretation Comments UA Bacteria (test code = UA Occasional /HPF Bacteria) [facility] [id number] 08:19:00 Test Item Value Reference Range Interpretation Comments UA Mucus (test code = UA Mucus) Few /LPF [facility] [id number] 08:19:00 Test Item Value Reference Range Interpretation Comments UA Amorph Christi (test code = Occasional /HPF UA Amorph Christi) [facility] [id number] 08:19:00 Test Item Value Reference Range Interpretation Comments UA Sq Epi (test code = UA Sq Epi) None [facility]en [facility]: [id number] 08:19:00 Test Item Value Reference Range Interpretation Comments Culture: Urine (test Holding For Better code = Culture: Urine) Growth [facility] [place]villeCEFTRIAXONE:SUSC:PT:ISOLATE:ORDQN:[id number] 08:19:00 Test Item Value Reference Range Interpretation Comments Culture: Urine (test >100,000 CFU/mL code = Culture: Providencia stuartii Urine) [facility]CE[facility]SUSC:PT:ISOLATE:ORDQN:[id number] 08:19:00 Test Item Value Reference Range Interpretation Comments Providencia stuartii Providencia stuartii (test code = Providencia stuartii) [facility] [id number] 08:19:00 Test Item Value Reference Range Interpretation Comments UA Color (test code = Yellow *NA*(10/21/21 3:19 UA Color) AM) [facility] [id number] 08:19:00 Test Item Value Reference Range Interpretation Comments UA Turbidity (test code Marked *ABN*(10/21/21 = UA Turbidity) 3:19 AM) [facility] [id number] 08:19:00 Test Item Value Reference Range Interpretation Comments UA Spec Grav (test code = UA Spec 1.013 1 Grav) [facility] AND [id number] 08:19:00 Test Item Value Reference Range Interpretation Comments UA pH (test code = UA pH) 5.0 1 5.0-8.0 [facility] AND [id number] 08:19:00 Test Item Value Reference Range Interpretation Comments UA Protein (test code = UA Negative mg/dL Protein) [facility] AND [id number] 08:19:00 Test Item Value Reference Range Interpretation Comments UA Glucose (test code = UA Negative mg/dL Glucose) [facility] AND [id number] 08:19:00 Test Item Value Reference Range Interpretation Comments UA Ketones (test code = UA Negative mg/dL Ketones) [facility] AND [id number] 08:19:00 Test Item Value Reference Range Interpretation Comments UA Bili (test code = Negative *NA*(10/21/21 UA Bili) 3:19 AM) [facility] AND [id number] 08:19:00 Test Item Value Reference Range Interpretation Comments UA Blood (test code = Small *ABN*(10/21/21 UA Blood) 3:19 AM) [facility] AND [id number] 08:19:00 Test Item Value Reference Range Interpretation Comments UA Urobilinogen (test code = UA no gt 0.1-1.0 Urobilinogen) [facility] AND [id number] 08:19:00 Test Item Value Reference Range Interpretation Comments UA Nitrite (test code Positive *ABN*(10/21/21 = UA Nitrite) 3:19 AM) [facility] AND [id number] 08:19:00 Test Item Value Reference Range Interpretation Comments UA Leuk Est (test code Large *ABN*(10/21/21 3:19 = UA Leuk Est) AM) [facility] AND [id number] 08:19:00 Test Item Value Reference Range Interpretation Comments UA WBC (test code = no gt See_Comment [Automa lester message] The UA WBC) system which ge nerated this result transmit lester reference range : <=5. The reference range was not used to interpr et this result as dany l/abnormal. [facility] AND [id number] 08:19:00 Test Item Value Reference Range Interpretation Comments UA RBC (test code = 8 See_Comment [Automa lester message] The UA RBC) system which ge nerated this result transmit lester reference range : <=2. The reference range was not used to interpr et this result as dany l/abnormal. [facility] [id number] 08:19:00 Test Item Value Reference Range Interpretation Comments UA Bacteria (test code = UA Occasional /HPF Bacteria) [facility] [id number] 08:19:00 Test Item Value Reference Range Interpretation Comments UA Mucus (test code = UA Mucus) Few /LPF [facility] [id number] 08:19:00 Test Item Value Reference Range Interpretation Comments UA Amorph Christi (test code = Occasional /HPF UA Amorph Christi) [facility] [id number] 08:19:00 Test Item Value Reference Range Interpretation Comments UA Sq Epi (test code = UA Sq Epi) [facility] [id number] 08:19:00 Test Item Value Reference Range Interpretation Comments Culture: Urine (test Holding For Better code = Culture: Urine) [facility]:SUSC:PT:ISOLATE:ORDQN:[id number] 08:19:00 Test Item Value Reference Range Interpretation Comments Culture: Urine (test >100,000 CFU/mL code = Culture: Providencia stuartii Urine) [facility]philipCEFTRIAXONE:SUSC:PT:ISOLATE:ORDQN:[id number] 08:19:00 Test Item Value Reference Range Interpretation Comments Providencia stuartii Providencia stuartii (test code = Providencia stuartii) [facility] [id number] 08:19:00 Test Item Value Reference Range Interpretation Comments UA Color (test code = Yellow *NA*(10/21/21 3:19 UA Color) AM) [facility] [id number] 08:19:00 Test Item Value Reference Range Interpretation Comments UA Turbidity (test code Marked *ABN*(10/21/21 = UA Turbidity) 3:19 AM) [facility] [id number] 08:19:00 Test Item Value Reference Range Interpretation Comments UA Spec Grav (test code = UA Spec 1.013 1 Grav) [facility] AND [id number] 08:19:00 Test Item Value Reference Range Interpretation Comments UA pH (test code = UA pH) 5.0 1 5.0-8.0 [facility] AND [id number] 08:19:00 Test Item Value Reference Range Interpretation Comments UA Protein (test code = UA Negative mg/dL Protein) [facility] AND [id number] 08:19:00 Test Item Value Reference Range Interpretation Comments UA Glucose (test code = UA Negative mg/dL Glucose) [facility] AND [id number] 08:19:00 Test Item Value Reference Range Interpretation Comments UA Ketones (test code = UA Negative mg/dL Ketones) [facility] AND [id number] 08:19:00 Test Item Value Reference Range Interpretation Comments UA Bili (test code = Negative *NA*(10/21/21 UA Bili) 3:19 AM) [facility] AND [id number] 08:19:00 Test Item Value Reference Range Interpretation Comments UA Blood (test code = Small *ABN*(10/21/21 UA Blood) 3:19 AM) [facility] AND [id number] 08:19:00 Test Item Value Reference Range Interpretation Comments UA Urobilinogen (test code = UA no gt 0.1-1.0 Urobilinogen) [facility] AND [id number] 08:19:00 Test Item Value Reference Range Interpretation Comments UA Nitrite (test code Positive *ABN*(10/21/21 = UA Nitrite) 3:19 AM) [facility] AND [id number] 08:19:00 Test Item Value Reference Range Interpretation Comments UA Leuk Est (test code Large *ABN*(10/21/21 3:19 = UA Leuk Est) AM) [facility] AND [id number] 08:19:00 Test Item Value Reference Range Interpretation Comments UA WBC (test code = no gt See_Comment [Automa lester message] The UA WBC) system which ge nerated this result transmit lester reference range : <=5. The reference range was not used to interpr et this result as dany l/abnormal. [facility] [id number] 08:19:00 Test Item Value Reference Range Interpretation Comments UA RBC (test code = 8 See_Comment [Automa lester message] The UA RBC) system which ge nerated this result transmit lester reference range : <=2. The reference range was not used to interpr et this result as dany l/abnormal. [facility] [id number] 08:19:00 Test Item Value Reference Range Interpretation Comments UA Bacteria (test code = UA Occasional /HPF Bacteria) [facility] [id number] 08:19:00 Test Item Value Reference Range Interpretation Comments UA Mucus (test code = UA Mucus) Few /LPF [facility] [id number] 08:19:00 Test Item Value Reference Range Interpretation Comments UA Amorph Christi (test code = Occasional /HPF UA Amorph Christi) [facility] [id number] 08:19:00 Test Item Value Reference Range Interpretation Comments UA Sq Epi (test code = UA Sq Epi) None [facility]en [facility]Culture: [id number] 08:19:00 Test Item Value Reference Range Interpretation Comments Culture: Urine (test Holding For Better code = Culture: Urine) Growth [facility] RenaissanceElyseFTRIAXONE:SUSC:PT:ISOLATE:ORDQN:[id number] 08:19:00 Test Item Value Reference Range Interpretation Comments Culture: Urine (test >100,000 CFU/mL code = Culture: Providencia stuartii Urine) [facility]annCEFTRIAXONE:SUSC:PT:ISOLATE:ORDQN:[id number] 08:19:00 Test Item Value Reference Range Interpretation Comments Culture: Urine (test >100,000 CFU/mL code = Culture: Providencia stuartii Urine) [facility]annCEFTRIAXONE:SUSC:PT:ISOLATE:ORDQN:[id number] 08:19:00 Test Item Value Reference Range Interpretation Comments Providencia stuartii Providencia stuartii (test code = Providencia stuartii) [facility] [id number] 08:19:00 Test Item Value Reference Range Interpretation Comments UA Color (test code = Yellow *NA*(4/9/22 3:19 UA Color) AM) [facility] AND [id number] 08:19:00 Test Item Value Reference Range Interpretation Comments UA Turbidity (test code Marked *ABN*(10/21/21 = UA Turbidity) 3:19 AM) [facility] AND [id number] 08:19:00 Test Item Value Reference Range Interpretation Comments UA Spec Grav (test code = UA Spec 1.013 1 Grav) [facility]SUSC:PT:ISOLATE:ORDQN:[id number] 08:19:00 Test Item Value Reference Range Interpretation Comments Providencia stuartii Providencia stuartii (test code = Providencia stuartii) [facility] AND [id number] 08:19:00 Test Item Value Reference Range Interpretation Comments UA pH (test code = UA pH) 5.0 1 5.0-8.0 [facility] AND [id number] 08:19:00 Test Item Value Reference Range Interpretation Comments UA Protein (test code = UA Negative mg/dL Protein) [facility] AND [id number] 08:19:00 Test Item Value Reference Range Interpretation Comments UA Glucose (test code = UA Negative mg/dL Glucose) [facility] AND [id number] 08:19:00 Test Item Value Reference Range Interpretation Comments UA Ketones (test code = UA Negative mg/dL Ketones) [facility] AND [id number] 08:19:00 Test Item Value Reference Range Interpretation Comments UA Bili (test code = Negative *NA*(10/21/21 UA Bili) 3:19 AM) [facility] AND [id number] 08:19:00 Test Item Value Reference Range Interpretation Comments UA Blood (test code = Small *ABN*(10/21/21 UA Blood) 3:19 AM) [facility] AND [id number] 08:19:00 Test Item Value Reference Range Interpretation Comments UA Urobilinogen (test code = UA no gt 0.1-1.0 Urobilinogen) [facility] AND [id number] 08:19:00 Test Item Value Reference Range Interpretation Comments UA Nitrite (test code Positive *ABN*(10/21/21 = UA Nitrite) 3:19 AM) [facility] [id number] 08:19:00 Test Item Value Reference Range Interpretation Comments UA Leuk Est (test code Large *ABN*(10/21/21 3:19 = UA Leuk Est) AM) [facility] [id number] 08:19:00 Test Item Value Reference Range Interpretation Comments UA WBC (test code = no gt See_Comment [Automa lester message] The UA WBC) system which ge nerated this result transmit lester reference range : <=5. The reference range was not used to interpr et this result as dany l/abnormal. [facility] [id number] 08:19:00 Test Item Value Reference Range Interpretation Comments UA Color (test code = Yellow *NA*(10/21/21 3:19 UA Color) AM) [facility] [id number] 08:19:00 Test Item Value Reference Range Interpretation Comments UA RBC (test code = 8 See_Comment [Automa lester message] The UA RBC) system which ge nerated this result transmit lester reference range : <=2. The reference range was not used to interpr et this result as dany l/abnormal. [facility] [id number] 08:19:00 Test Item Value Reference Range Interpretation Comments UA Bacteria (test code = UA Occasional /HPF Bacteria) [facility] [id number] 08:19:00 Test Item Value Reference Range Interpretation Comments UA Mucus (test code = UA Mucus) Few /LPF [facility] [id number] 08:19:00 Test Item Value Reference Range Interpretation Comments UA Amorph Christi (test code = Occasional /HPF UA Amorph Christi) [facility] [id number] 08:19:00 Test Item Value Reference Range Interpretation Comments UA Sq Epi (test code = UA Sq Epi) None [facility]en [facility] [id number] 08:19:00 Test Item Value Reference Range Interpretation Comments Culture: Urine (test Holding For Better code = Culture: Urine) Growth [facility] [id number] 08:19:00 Test Item Value Reference Range Interpretation Comments UA Turbidity (test code Marked *ABN*(10/21/21 = UA Turbidity) 3:19 AM) [facility] AND [id number] 08:19:00 Test Item Value Reference Range Interpretation Comments UA Spec Grav (test code = UA Spec 1.013 1 Grav) [facility] AND [id number] 08:19:00 Test Item Value Reference Range Interpretation Comments UA pH (test code = UA pH) 5.0 1 5.0-8.0 [facility] AND [id number] 08:19:00 Test Item Value Reference Range Interpretation Comments UA Protein (test code = UA Negative mg/dL Protein) [facility] AND [id number] 08:19:00 Test Item Value Reference Range Interpretation Comments UA Glucose (test code = UA Negative mg/dL Glucose) [facility] AND [id number] 08:19:00 Test Item Value Reference Range Interpretation Comments UA Ketones (test code = UA Negative mg/dL Ketones) [facility] AND [id number] 08:19:00 Test Item Value Reference Range Interpretation Comments UA Bili (test code = Negative *NA*(10/21/21 UA Bili) 3:19 AM) [facility] AND [id number] 08:19:00 Test Item Value Reference Range Interpretation Comments UA Blood (test code = Small *ABN*(10/21/21 UA Blood) 3:19 AM) [facility] AND [id number] 08:19:00 Test Item Value Reference Range Interpretation Comments UA Urobilinogen (test code = UA no gt 0.1-1.0 Urobilinogen) [facility] AND [id number] 08:19:00 Test Item Value Reference Range Interpretation Comments UA Nitrite (test code Positive *ABN*(10/21/21 = UA Nitrite) 3:19 AM) [facility] AND [id number] 08:19:00 Test Item Value Reference Range Interpretation Comments UA Leuk Est (test code Large *ABN*(10/21/21 3:19 = UA Leuk Est) AM) [facility] AND [id number] 08:19:00 Test Item Value Reference Range Interpretation Comments UA WBC (test code = no gt See_Comment [Automa lester message] The UA WBC) system which ge nerated this result transmit lester reference range : <=5. The reference range was not used to interpr et this result as dany l/abnormal. [facility] [id number] 08:19:00 Test Item Value Reference Range Interpretation Comments UA RBC (test code = 8 See_Comment [Automa lester message] The UA RBC) system which ge nerated this result transmit lester reference range : <=2. The reference range was not used to interpr et this result as dany l/abnormal. [facility] [id number] 08:19:00 Test Item Value Reference Range Interpretation Comments UA Bacteria (test code = UA Occasional /HPF Bacteria) [facility] [id number] 08:19:00 Test Item Value Reference Range Interpretation Comments UA Mucus (test code = UA Mucus) Few /LPF [facility] [id number] 08:19:00 Test Item Value Reference Range Interpretation Comments UA Amorph Christi (test code = Occasional /HPF UA Amorph Christi) [facility] [id number] 08:19:00 Test Item Value Reference Range Interpretation Comments UA Sq Epi (test code = UA Sq Epi) None [facility]en [facility] [id number] 08:19:00 Test Item Value Reference Range Interpretation Comments Culture: Urine (test Holding For Better code = Culture: Urine) Growth [facility] JasonCEFTRIAXONE:SUSC:PT:ISOLATE:ORDQN:[id number] 08:19:00 Test Item Value Reference Range Interpretation Comments Culture: Urine (test >100,000 CFU/mL code = Culture: Providencia stuartii Urine) [facility] LorenaannCEFTRIAXONE:SUSC:PT:ISOLATE:ORDQN:[id number] 08:19:00 Test Item Value Reference Range Interpretation Comments Providencia stuartii Providencia stuartii (test code = Providencia stuartii) [facility] [id number] 08:19:00 Test Item Value Reference Range Interpretation Comments UA Color (test code = Yellow *NA*(10/21/21 3:19 UA Color) AM) [facility] [id number] 08:19:00 Test Item Value Reference Range Interpretation Comments UA Turbidity (test code Marked *ABN*(10/21/21 = UA Turbidity) 3:19 AM) [facility] AND [id number] 08:19:00 Test Item Value Reference Range Interpretation Comments UA Spec Grav (test code = UA Spec 1.013 1 Grav) [facility] AND [id number] 08:19:00 Test Item Value Reference Range Interpretation Comments UA pH (test code = UA pH) 5.0 1 5.0-8.0 [facility] AND [id number] 08:19:00 Test Item Value Reference Range Interpretation Comments UA Protein (test code = UA Negative mg/dL Protein) [facility] AND [id number] 08:19:00 Test Item Value Reference Range Interpretation Comments UA Glucose (test code = UA Negative mg/dL Glucose) [facility] AND [id number] 08:19:00 Test Item Value Reference Range Interpretation Comments UA Ketones (test code = UA Negative mg/dL Ketones) [facility] AND [id number] 08:19:00 Test Item Value Reference Range Interpretation Comments UA Bili (test code = Negative *NA*(10/21/21 UA Bili) 3:19 AM) [facility] AND [id number] 08:19:00 Test Item Value Reference Range Interpretation Comments UA Blood (test code = Small *ABN*(10/21/21 UA Blood) 3:19 AM) [facility] AND [id number] 08:19:00 Test Item Value Reference Range Interpretation Comments UA Urobilinogen (test code = UA no gt 0.1-1.0 Urobilinogen) [facility] AND [id number] 08:19:00 Test Item Value Reference Range Interpretation Comments UA Nitrite (test code Positive *ABN*(10/21/21 = UA Nitrite) 3:19 AM) [facility] AND [id number] 08:19:00 Test Item Value Reference Range Interpretation Comments UA Leuk Est (test code Large *ABN*(10/21/21 3:19 = UA Leuk Est) AM) [facility] AND [id number] 08:19:00 Test Item Value Reference Range Interpretation Comments UA WBC (test code = no gt See_Comment [Automa lester message] The UA WBC) system which ge nerated this result transmit lester reference range : <=5. The reference range was not used to interpr et this result as dany l/abnormal. [facility] AND [id number] 08:19:00 Test Item Value Reference Range Interpretation Comments UA RBC (test code = 8 See_Comment [Automa lester message] The UA RBC) system which ge nerated this result transmit lester reference range : <=2. The reference range was not used to interpr et this result as dany l/abnormal. [facility] AND [id number] 08:19:00 Test Item Value Reference Range Interpretation Comments UA Bacteria (test code = UA Occasional /HPF Bacteria) [facility] AND [id number] 08:19:00 Test Item Value Reference Range Interpretation Comments UA Mucus (test code = UA Mucus) Few /LPF [facility] AND [id number] 08:19:00 Test Item Value Reference Range Interpretation Comments UA Amorph Christi (test code = Occasional /HPF UA Amorph Christi) [employer] [id number] 00:20:00 Test Item Value Reference Range Interpretation Comments ABO/Rh (test code = ABO/Rh) AB POS [facility] [employer] [id number] 00:20:00 Test Item Value Reference Range Interpretation Comments Antibody Scrn (test Negative (10/20/21 7:20 code = Antibody Scrn) PM) [facility] [employer] [id number] 00:20:00 Test Item Value Reference Range Interpretation Comments Glucose Lvl (test code = Glucose Lvl) 74 70-99 [facility] [employer] [id number] 00:20:00 Test Item Value Reference Range Interpretation Comments BUN (test code = BUN) 15 7-22 [employer] [id number] 00:20:00 Test Item Value Reference Range Interpretation Comments Creatinine Lvl (test code = Creatinine 0.61 0.50-1.40 Lvl) [facility] [employer] [id number] 00:20:00 Test Item Value Reference Range Interpretation Comments Sodium Lvl (test code = Sodium Lvl) 139 135-145 [facility] [employer] [id number] 00:20:00 Test Item Value Reference Range Interpretation Comments Potassium Lvl (test code = Potassium 4.9 3.5-5.1 Lvl) [place] [id number] 00:20:00 Test Item Value Reference Range Interpretation Comments Chloride Lvl (test code = Chloride Lvl) 105 95-109 [place] [id number] 00:20:00 Test Item Value Reference Range Interpretation Comments CO2 (test code = CO2) 30 24-32 [place] [id number] 00:20:00 Test Item Value Reference Range Interpretation Comments Calcium Lvl (test code = Calcium Lvl) 9.5 8.5-10.5 [place] [id number] 00:20:00 Test Item Value Reference Range Interpretation Comments AGAP (test code = AGAP) 8.9 10.0-20.0 [place] [id number] 00:20:00 Test Item Value Reference Range Interpretation Comments eGFR (test code = eGFR) 129 [place] 988842-04-09 00:20:00 Test Item Value Reference Range Interpretation Comments Lactic Acid Lvl (test code = Lactic 1.2 0.5-2.2 Acid Lvl) [facility]2022-04-09 00:20:00 Test Item Value Reference Range Interpretation Comments Procalcitonin Lvl (test 0.09 See_Comment [Au tomated message] code = Procalcitonin Lvl) e system which generated this result transmitted ref erence range: <=0.10. The reference range was not used to interpr et this result as normal/abnormal . [place] 927472-04-09 00:20:00 Test Item Value Reference Range Interpretation Comments WBC (test code = WBC) 10.1 3.7-10.4 [place] [address]-04-09 00:20:00 Test Item Value Reference Range Interpretation Comments RBC (test code = RBC) 5.14 4.70-6.10 [place] 927472-04-09 00:20:00 Test Item Value Reference Range Interpretation Comments Hgb (test code = Hgb) 15.5 14.0-18.0 [place] 11918-04-09 00:20:00 Test Item Value Reference Range Interpretation Comments Hct (test code = Hct) 46.5 42.0-54.0 [id number] 00:20:00 Test Item Value Reference Range Interpretation Comments MCV (test code = MCV) 90.5 80.0-94.0 [facility] [id number] 00:20:00 Test Item Value Reference Range Interpretation Comments MCH (test code = MCH) 30.1 pg 27.0-31.0 [facility] PointeHnutkblUTFTVXMSIU0892-45-43 00:20:00 Test Item Value Reference Range Interpretation Comments MCHC (test code = MCHC) 33.3 32.0-36.0 [facility] PointeHhlwdnqRIXKLAGEPI7960-14-00 00:20:00 Test Item Value Reference Range Interpretation Comments RDW (test code = RDW) 15.7 11.5-14.5 [facility] PointeEnmvjckYEIRQKQCWF3980-64-35 00:20:00 Test Item Value Reference Range Interpretation Comments Platelet (test code = Platelet) 302 133-450 [facility] PointeKymsxyzTUKOPKWPFJ7524-54-94 00:20:00 Test Item Value Reference Range Interpretation Comments MPV (test code = MPV) 8.9 7.4-10.4 [facility] PointeAvhmqmgRSJHMVIEDZ1292-85-82 00:20:00 Test Item Value Reference Range Interpretation Comments Sed Rate (test code = 17 See_Comment [Auto mated message] The Sed Rate) system which ge nerated this result transmit lester reference range : <=15. The reference range was not used to interpr et this result as dany l/abnormal. [facility] PointeBulnhocTSRAWCAPGT5421-68-67 00:20:00 Test Item Value Reference Range Interpretation Comments PT (test code = PT) 13.1 s 12.0-14.7 [place] 927472-04-09 00:20:00 Test Item Value Reference Range Interpretation Comments INR (test code = INR) 1.00 1 0.85-1.17 [facility] PointeZojzrnmGZGRWWJRQF6281-42-05 00:20:00 Test Item Value Reference Range Interpretation Comments PTT (test code = PTT) 31.5 s 22.9-35.8 [place] 927472-04-09 00:20:00 Test Item Value Reference Range Interpretation Comments Segs (test code = Segs) 68.7 45.0-75.0 [place] 927472-04-09 00:20:00 Test Item Value Reference Range Interpretation Comments Lymphocytes (test code = Lymphocytes) 19.6 20.0-40.0 [facility] P[id number] 00:20:00 Test Item Value Reference Range Interpretation Comments Monocytes (test code = Monocytes) 9.4 2.0-12.0 [facility] PointeFdjvnpbUHVDIVGITN1464-56-33 00:20:00 Test Item Value Reference Range Interpretation Comments Eosinophils (test code = 1.4 See_Comment [A utomated message] The Eosinophils) system which ge nerated this result tra nsmitted reference range : <=4.0. The reference r boubacar was not used to int erpret this result as normal/abnormal . [facility] PointeJxzulrwRDBPOSZRLD3477-69-37 00:20:00 Test Item Value Reference Range Interpretation Comments Basophils (test code = 0.9 See_Comment [Aut omated message] The Basophils) system which ge nerated this result tra nsmitted reference range : <=1.0. The reference r boubacar was not used to int erpret this result as normal/abnormal . [facility] PointeOqravekMQVPSGOMPZ3803-00-62 00:20:00 Test Item Value Reference Range Interpretation Comments Neutrophils # (test code = Neutrophils 6.9 1.5-8.1 #) [facility] PointeJgwudwpEPCAGSVYQM7733-20-34 00:20:00 Test Item Value Reference Range Interpretation Comments Lymphocytes # (test code = Lymphocytes 2.0 1.0-5.5 #) [facility] PointeEkpwgwyFFZYHZRLDM2694-44-03 00:20:00 Test Item Value Reference Range Interpretation Comments Monocytes # (test code 1.0 See_Comment [Aut omated message] The = Monocytes #) system which generated this result tra nsmitted reference range : <=0.8. The reference r boubacar was not used to int erpret this result as normal/abnormal . [facility] [facility]ydmxdwUZQAUILVIQ7454-49-99 00:20:00 Test Item Value Reference Range Interpretation Comments Eosinophils # (test code 0.1 See_Comment [A utomated message] The = Eosinophils #) system whic h generated this result tra nsmitted reference range : <=0.5. The reference r boubacar was not used to int erpret this result as normal/abnormal . [facility]hsvhmzRYEWTXBUZS6901-85-34 00:20:00 Test Item Value Reference Range Interpretation Comments Basophils # (test code 0.1 See_Comment [Aut omated message] The = Basophils #) system which generated this result tra nsmitted reference range : <=0.2. The reference r boubacar was not used to int erpret this result as normal/abnormal . [facility] LbyuasgAWXOGLFOHN5497-31-01 00:20:00 Test Item Value Reference Range Interpretation Comments C-REACTIVE PROTEIN (test code = 13.2 C-REACTIVE PROTEIN) [facility] [employer] [id number] 00:20:00 Test Item Value Reference Range Interpretation Comments ABO/Rh (test code = ABO/Rh) AB POS [facility] [employer] [id number] 00:20:00 Test Item Value Reference Range Interpretation Comments Antibody Scrn (test Negative (10/20/21 7:20 code = Antibody Scrn) PM) [facility] [employer]2022-04-09 00:20:00 Test Item Value Reference Range Interpretation Comments Glucose Lvl (test code = Glucose Lvl) 74 70-99 [employer]2022-04-09 00:20:00 Test Item Value Reference Range Interpretation Comments BUN (test code = BUN) 15 7-22 [employer]2022-04-09 00:20:00 Test Item Value Reference Range Interpretation Comments Creatinine Lvl (test code = Creatinine 0.61 0.50-1.40 Lvl) [employer]2022-04-09 00:20:00 Test Item Value Reference Range Interpretation Comments Sodium Lvl (test code = Sodium Lvl) 139 135-145 [employer]2022-04-09 00:20:00 Test Item Value Reference Range Interpretation Comments Potassium Lvl (test code = Potassium 4.9 3.5-5.1 Lvl) [employer]2022-04-09 00:20:00 Test Item Value Reference Range Interpretation Comments Chloride Lvl (test code = Chloride Lvl) 105 95-109 [facility]2022-04-09 00:20:00 Test Item Value Reference Range Interpretation Comments CO2 (test code = CO2) 30 24-32 [employer]2022-04-09 00:20:00 Test Item Value Reference Range Interpretation Comments Calcium Lvl (test code = Calcium Lvl) 9.5 8.5-10.5 [facility]2022-04-09 00:20:00 Test Item Value Reference Range Interpretation Comments AGAP (test code = AGAP) 8.9 10.0-20.0 [facility]2022-04-09 00:20:00 Test Item Value Reference Range Interpretation Comments eGFR (test code = eGFR) 129 [facility]2022-04-09 00:20:00 Test Item Value Reference Range Interpretation Comments Lactic Acid Lvl (test code = Lactic 1.2 0.5-2.2 Acid Lvl) [place] 988842-04-09 00:20:00 Test Item Value Reference Range Interpretation Comments Procalcitonin Lvl (test 0.09 See_Comment [Au tomated message] code = Procalcitonin Lvl) e system which generated this result transmitted ref erence range: <=0.10. The reference range was not used to interpr et this result as normal/abnormal . [facility]:20:00 Test Item Value Reference Range Interpretation Comments WBC (test code = WBC) 10.1 3.7-10.4 [facility] PointeXottzqgKYCYDRKOLT1913-47-11 00:20:00 Test Item Value Reference Range Interpretation Comments RBC (test code = RBC) 5.14 4.70-6.10 [facility] PointeNnrybbyFBTNIDFFVR5151-67-08 00:20:00 Test Item Value Reference Range Interpretation Comments Hgb (test code = Hgb) 15.5 14.0-18.0 [place] 927472-04-09 00:20:00 Test Item Value Reference Range Interpretation Comments Hct (test code = Hct) 46.5 42.0-54.0 [place] 927472-04-09 00:20:00 Test Item Value Reference Range Interpretation Comments MCV (test code = MCV) 90.5 80.0-94.0 [place] 927472-04-09 00:20:00 Test Item Value Reference Range Interpretation Comments MCH (test code = MCH) 30.1 pg 27.0-31.0 [place] 927472-04-09 00:20:00 Test Item Value Reference Range Interpretation Comments MCHC (test code = MCHC) 33.3 32.0-36.0 [place] [address]-04-09 00:20:00 Test Item Value Reference Range Interpretation Comments RDW (test code = RDW) 15.7 11.5-14.5 [place] [address]-04-09 00:20:00 Test Item Value Reference Range Interpretation Comments Platelet (test code = Platelet) 302 133-450 [place] 927472-04-09 00:20:00 Test Item Value Reference Range Interpretation Comments MPV (test code = MPV) 8.9 7.4-10.4 [place] 927472-04-09 00:20:00 Test Item Value Reference Range Interpretation Comments Sed Rate (test code = 17 See_Comment [Auto mated message] The Sed Rate) system which ge nerated this result transmit lester reference range : <=15. The reference range was not used to interpr et this result as dany l/abnormal. [place] 927472-04-09 00:20:00 Test Item Value Reference Range Interpretation Comments PT (test code = PT) 13.1 s 12.0-14.7 [facility] PointeBvfejeqWLJUAYOSYI7286-31-49 00:20:00 Test Item Value Reference Range Interpretation Comments INR (test code = INR) 1.00 1 0.85-1.17 [place] [address]-04-09 00:20:00 Test Item Value Reference Range Interpretation Comments PTT (test code = PTT) 31.5 s 22.9-35.8 [place] [address]-04-09 00:20:00 Test Item Value Reference Range Interpretation Comments Segs (test code = Segs) 68.7 45.0-75.0 [place] 927472-04-09 00:20:00 Test Item Value Reference Range Interpretation Comments Lymphocytes (test code = Lymphocytes) 19.6 20.0-40.0 [place] [address]-04-09 00:20:00 Test Item Value Reference Range Interpretation Comments Monocytes (test code = Monocytes) 9.4 2.0-12.0 [place] [address]-04-09 00:20:00 Test Item Value Reference Range Interpretation Comments Eosinophils (test code = 1.4 See_Comment [A utomated message] The Eosinophils) system which ge nerated this result tra nsmitted reference range : <=4.0. The reference r boubacar was not used to int erpret this result as normal/abnormal . [facility] PointeHlmduwwALLVFHYWRZ4188-46-15 00:20:00 Test Item Value Reference Range Interpretation Comments Basophils (test code = 0.9 See_Comment [Aut omated message] The Basophils) system which ge nerated this result tra nsmitted reference range : <=1.0. The reference r boubacar was not used to int erpret this result as normal/abnormal . [facility] PointeHmjbkzjQZUIMXFDMZ5968-74-08 00:20:00 Test Item Value Reference Range Interpretation Comments Neutrophils # (test code = Neutrophils 6.9 1.5-8.1 #) [facility] PointeTpkzxwfBRPNKTMGYC0875-02-82 00:20:00 Test Item Value Reference Range Interpretation Comments Lymphocytes # (test code = Lymphocytes 2.0 1.0-5.5 #) [facility] PointeBjsizupHUFWEXJDPK0621-15-15 00:20:00 Test Item Value Reference Range Interpretation Comments Monocytes # (test code 1.0 See_Comment [Aut omated message] The = Monocytes #) system which generated this result tra nsmitted reference range : <=0.8. The reference r boubacar was not used to int erpret this result as normal/abnormal . [facility] PointeUaqhovbXQJAJFLHII5787-19-26 00:20:00 Test Item Value Reference Range Interpretation Comments Eosinophils # (test code 0.1 See_Comment [A utomated message] The = Eosinophils #) system whic h generated this result tra nsmitted reference range : <=0.5. The reference r boubacar was not used to int erpret this result as normal/abnormal . [facility] PointeAiaqcaiCGCPBKZHPR4053-20-94 00:20:00 Test Item Value Reference Range Interpretation Comments Basophils # (test code 0.1 See_Comment [Aut omated message] The = Basophils #) system which generated this result tra nsmitted reference range : <=0.2. The reference r boubacar was not used to int erpret this result as normal/abnormal . [facility]KcaljydQXENKNCVLD7111-55-82 00:20:00 Test Item Value Reference Range Interpretation Comments C-REACTIVE PROTEIN (test code = 13.2 C-REACTIVE PROTEIN) [facility] [employer] [id number] 00:20:00 Test Item Value Reference Range Interpretation Comments ABO/Rh (test code = ABO/Rh) AB POS [facility] [employer] [id number] 00:20:00 Test Item Value Reference Range Interpretation Comments Antibody Scrn (test Negative (10/20/21 7:20 code = Antibody Scrn) PM) [facility]2022-04-09 00:20:00 Test Item Value Reference Range Interpretation Comments Glucose Lvl (test code = Glucose Lvl) 74 70-99 [facility]2022-04-09 00:20:00 Test Item Value Reference Range Interpretation Comments BUN (test code = BUN) 15 7-22 [facility]2022-04-09 00:20:00 Test Item Value Reference Range Interpretation Comments Creatinine Lvl (test code = Creatinine 0.61 0.50-1.40 Lvl) [facility]2022-04-09 00:20:00 Test Item Value Reference Range Interpretation Comments Sodium Lvl (test code = Sodium Lvl) 139 135-145 [facility]2022-04-09 00:20:00 Test Item Value Reference Range Interpretation Comments Potassium Lvl (test code = Potassium 4.9 3.5-5.1 Lvl) [facility]2022-04-09 00:20:00 Test Item Value Reference Range Interpretation Comments Chloride Lvl (test code = Chloride Lvl) 105 95-109 [facility]2022-04-09 00:20:00 Test Item Value Reference Range Interpretation Comments CO2 (test code = CO2) 30 24-32 [facility]2022-04-09 00:20:00 Test Item Value Reference Range Interpretation Comments Calcium Lvl (test code = Calcium Lvl) 9.5 8.5-10.5 [facility]2022-04-09 00:20:00 Test Item Value Reference Range Interpretation Comments AGAP (test code = AGAP) 8.9 10.0-20.0 [facility]2022-04-09 00:20:00 Test Item Value Reference Range Interpretation Comments eGFR (test code = eGFR) 129 [facility]2022-04-09 00:20:00 Test Item Value Reference Range Interpretation Comments Lactic Acid Lvl (test code = Lactic 1.2 0.5-2.2 Acid Lvl) [facility]2022-04-09 00:20:00 Test Item Value Reference Range Interpretation Comments Procalcitonin Lvl (test 0.09 See_Comment [Au tomated message] code = Procalcitonin Lvl) Th e system which generated this result transmitted ref erence range: <=0.10. The reference range was not used to interpr et this result as normal/abnormal . [facility] PointeWhvuvryCDINZDXVHF6090-83-84 00:20:00 Test Item Value Reference Range Interpretation Comments WBC (test code = WBC) 10.1 3.7-10.4 [place] 927472-04-09 00:20:00 Test Item Value Reference Range Interpretation Comments RBC (test code = RBC) 5.14 4.70-6.10 [place] 927472-04-09 00:20:00 Test Item Value Reference Range Interpretation Comments Hgb (test code = Hgb) 15.5 14.0-18.0 [place] 927472-04-09 00:20:00 Test Item Value Reference Range Interpretation Comments Hct (test code = Hct) 46.5 42.0-54.0 [place] 927472-04-09 00:20:00 Test Item Value Reference Range Interpretation Comments MCV (test code = MCV) 90.5 80.0-94.0 [place] 927472-04-09 00:20:00 Test Item Value Reference Range Interpretation Comments MCH (test code = MCH) 30.1 pg 27.0-31.0 [place] 927472-04-09 00:20:00 Test Item Value Reference Range Interpretation Comments MCHC (test code = MCHC) 33.3 32.0-36.0 [place] 927472-04-09 00:20:00 Test Item Value Reference Range Interpretation Comments RDW (test code = RDW) 15.7 11.5-14.5 [place] 927472-04-09 00:20:00 Test Item Value Reference Range Interpretation Comments Platelet (test code = Platelet) 302 133-450 [place] 927472-04-09 00:20:00 Test Item Value Reference Range Interpretation Comments MPV (test code = MPV) 8.9 7.4-10.4 [place] 927472-04-09 00:20:00 Test Item Value Reference Range Interpretation Comments Sed Rate (test code = 17 See_Comment [Auto mated message] The Sed Rate) system which ge nerated this result transmit lester reference range : <=15. The reference range was not used to interpr et this result as dany l/abnormal. [facility] PointeYrryrluZNXCOCAMMH2634-75-98 00:20:00 Test Item Value Reference Range Interpretation Comments PT (test code = PT) 13.1 s 12.0-14.7 [facility] PointeRyfhmmcULEKZAOLDQ4251-64-44 00:20:00 Test Item Value Reference Range Interpretation Comments INR (test code = INR) 1.00 1 0.85-1.17 [place] 927472-04-09 00:20:00 Test Item Value Reference Range Interpretation Comments PTT (test code = PTT) 31.5 s 22.9-35.8 [place] 927472-04-09 00:20:00 Test Item Value Reference Range Interpretation Comments Segs (test code = Segs) 68.7 45.0-75.0 [facility] PointeTfxloilONSFGNXGPY4683-98-95 00:20:00 Test Item Value Reference Range Interpretation Comments Lymphocytes (test code = Lymphocytes) 19.6 20.0-40.0 [place] 927472-04-09 00:20:00 Test Item Value Reference Range Interpretation Comments Monocytes (test code = Monocytes) 9.4 2.0-12.0 [facility] PointeWeplhisQMYVZNDGSE0422-47-59 00:20:00 Test Item Value Reference Range Interpretation Comments Eosinophils (test code = 1.4 See_Comment [A utomated message] The Eosinophils) system which ge nerated this result tra nsmitted reference range : <=4.0. The reference r boubacar was not used to int erpret this result as normal/abnormal . [facility] PointeMfqpdblCSIUIDTSTC0701-68-72 00:20:00 Test Item Value Reference Range Interpretation Comments Basophils (test code = 0.9 See_Comment [Aut omated message] The Basophils) system which ge nerated this result tra nsmitted reference range : <=1.0. The reference r boubacar was not used to int erpret this result as normal/abnormal . [place] 927472-04-09 00:20:00 Test Item Value Reference Range Interpretation Comments Neutrophils # (test code = Neutrophils 6.9 1.5-8.1 #) [facility]IovlabbCBBRNZCXIU7920-60-40 00:20:00 Test Item Value Reference Range Interpretation Comments Lymphocytes # (test code = Lymphocytes 2.0 1.0-5.5 #) [facility] PointeEzlgvawEQJQIKEXXD7822-16-61 00:20:00 Test Item Value Reference Range Interpretation Comments Monocytes # (test code 1.0 See_Comment [Aut omated message] The = Monocytes #) system which generated this result tra nsmitted reference range : <=0.8. The reference r boubacar was not used to int erpret this result as normal/abnormal . [facility] HospitalCubxdpyYHJACXNNZS5287-69-34 00:20:00 Test Item Value Reference Range Interpretation Comments Eosinophils # (test code 0.1 See_Comment [A utomated message] The = Eosinophils #) system whic h generated this result tra nsmitted reference range : <=0.5. The reference r boubacar was not used to int erpret this result as normal/abnormal . [facility] HospitalRupjjhcGOSDGWXHEQ7186-66-75 00:20:00 Test Item Value Reference Range Interpretation Comments Basophils # (test code 0.1 See_Comment [Aut omated message] The = Basophils #) system which generated this result tra nsmitted reference range : <=0.2. The reference r boubacar was not used to int erpret this result as normal/abnormal . [facility] HospitalDctabfcFBHEHUZJIH0205-76-44 00:20:00 Test Item Value Reference Range Interpretation Comments C-REACTIVE PROTEIN (test code = 13.2 C-REACTIVE PROTEIN) [facility] [employer] [id number] 00:20:00 Test Item Value Reference Range Interpretation Comments ABO/Rh (test code = ABO/Rh) AB POS [facility] [employer] [id number] 00:20:00 Test Item Value Reference Range Interpretation Comments Antibody Scrn (test Negative (10/20/21 7:20 code = Antibody Scrn) PM) [facility] [employer] [id number] 00:20:00 Test Item Value Reference Range Interpretation Comments Glucose Lvl (test code = Glucose Lvl) 74 70-99 [facility] [employer] DLLOL2747-18-25 00:20:00 Test Item Value Reference Range Interpretation Comments BUN (test code = BUN) 15 7-22 [place] 988842-04-09 00:20:00 Test Item Value Reference Range Interpretation Comments Creatinine Lvl (test code = Creatinine 0.61 0.50-1.40 Lvl) [place] 988842-04-09 00:20:00 Test Item Value Reference Range Interpretation Comments Sodium Lvl (test code = Sodium Lvl) 139 135-145 [place] 988842-04-09 00:20:00 Test Item Value Reference Range Interpretation Comments Potassium Lvl (test code = Potassium 4.9 3.5-5.1 Lvl) [place] 988842-04-09 00:20:00 Test Item Value Reference Range Interpretation Comments Chloride Lvl (test code = Chloride Lvl) 105 95-109 [place] 988842-04-09 00:20:00 Test Item Value Reference Range Interpretation Comments CO2 (test code = CO2) 30 24-32 [place] 988842-04-09 00:20:00 Test Item Value Reference Range Interpretation Comments Calcium Lvl (test code = Calcium Lvl) 9.5 8.5-10.5 [place] 988842-04-09 00:20:00 Test Item Value Reference Range Interpretation Comments AGAP (test code = AGAP) 8.9 10.0-20.0 [place] 988842-04-09 00:20:00 Test Item Value Reference Range Interpretation Comments eGFR (test code = eGFR) 129 [place] 988842-04-09 00:20:00 Test Item Value Reference Range Interpretation Comments Lactic Acid Lvl (test code = Lactic 1.2 0.5-2.2 Acid Lvl) [place] 988842-04-09 00:20:00 Test Item Value Reference Range Interpretation Comments Procalcitonin Lvl (test 0.09 See_Comment [Au tomated message] code = Procalcitonin Lvl) e system which generated this result transmitted ref erence range: <=0.10. The reference range was not used to interpr et this result as normal/abnormal . [place] 927472-04-09 00:20:00 Test Item Value Reference Range Interpretation Comments WBC (test code = WBC) 10.1 3.7-10.4 [place] 927472-04-09 00:20:00 Test Item Value Reference Range Interpretation Comments RBC (test code = RBC) 5.14 4.70-6.10 [facility] PointePzqghwrCIQBJTLKWN5305-99-32 00:20:00 Test Item Value Reference Range Interpretation Comments Hgb (test code = Hgb) 15.5 14.0-18.0 [place] [address]-04-09 00:20:00 Test Item Value Reference Range Interpretation Comments Hct (test code = Hct) 46.5 42.0-54.0 [facility] PointeQytnfbnGJCSDWJBVQ5931-22-37 00:20:00 Test Item Value Reference Range Interpretation Comments MCV (test code = MCV) 90.5 80.0-94.0 [facility] PointeQbftxpjRGBSAORMWZ7260-58-46 00:20:00 Test Item Value Reference Range Interpretation Comments MCH (test code = MCH) 30.1 pg 27.0-31.0 [place] 927472-04-09 00:20:00 Test Item Value Reference Range Interpretation Comments MCHC (test code = MCHC) 33.3 32.0-36.0 [place] 927472-04-09 00:20:00 Test Item Value Reference Range Interpretation Comments RDW (test code = RDW) 15.7 11.5-14.5 [facility] PointeBlvulyhLMBAEBSBYW3579-41-58 00:20:00 Test Item Value Reference Range Interpretation Comments Platelet (test code = Platelet) 302 133-450 [facility] PointeNxaamejPRMPFUCLJL1200-95-04 00:20:00 Test Item Value Reference Range Interpretation Comments MPV (test code = MPV) 8.9 7.4-10.4 [place] 927472-04-09 00:20:00 Test Item Value Reference Range Interpretation Comments Sed Rate (test code = 17 See_Comment [Auto mated message] The Sed Rate) system which ge nerated this result transmit lester reference range : <=15. The reference range was not used to interpr et this result as dany l/abnormal. [facility] PointeIkwzqoeGTTMARJDBM5497-65-13 00:20:00 Test Item Value Reference Range Interpretation Comments PT (test code = PT) 13.1 s 12.0-14.7 [place] 927472-04-09 00:20:00 Test Item Value Reference Range Interpretation Comments INR (test code = INR) 1.00 1 0.85-1.17 [facility] PointeLdkrfjqIXDTIWHACY2053-19-39 00:20:00 Test Item Value Reference Range Interpretation Comments PTT (test code = PTT) 31.5 s 22.9-35.8 [facility] PointeIdvtspwCETFWCGZYS6790-86-04 00:20:00 Test Item Value Reference Range Interpretation Comments Segs (test code = Segs) 68.7 45.0-75.0 [facility] PointeSoamukyWKLUSZFMWQ8772-86-81 00:20:00 Test Item Value Reference Range Interpretation Comments Lymphocytes (test code = Lymphocytes) 19.6 20.0-40.0 [facility] PointeYsvaditAFVDHRZKFS0833-21-08 00:20:00 Test Item Value Reference Range Interpretation Comments Monocytes (test code = Monocytes) 9.4 2.0-12.0 [facility] PointeKzjghwbWUNRGTKIUV2087-60-04 00:20:00 Test Item Value Reference Range Interpretation Comments Eosinophils (test code = 1.4 See_Comment [A utomated message] The Eosinophils) system which ge nerated this result tra nsmitted reference range : <=4.0. The reference r boubacar was not used to int erpret this result as normal/abnormal . [facility] PointeZabgpgaZZPWQGYMIZ2271-99-77 00:20:00 Test Item Value Reference Range Interpretation Comments Basophils (test code = 0.9 See_Comment [Aut omated message] The Basophils) system which ge nerated this result tra nsmitted reference range : <=1.0. The reference r boubacar was not used to int erpret this result as normal/abnormal . [facility] PointeMyuhnnjFQVAYRDLMP6857-70-40 00:20:00 Test Item Value Reference Range Interpretation Comments Neutrophils # (test code = Neutrophils 6.9 1.5-8.1 #) [facility] PointeEpngkhsLICIMBCHGX3593-45-88 00:20:00 Test Item Value Reference Range Interpretation Comments Lymphocytes # (test code = Lymphocytes 2.0 1.0-5.5 #) [facility] PointeWpsvjiiZXCIARCKEB0585-77-63 00:20:00 Test Item Value Reference Range Interpretation Comments Monocytes # (test code 1.0 See_Comment [Aut omated message] The = Monocytes #) system which generated this result tra nsmitted reference range : <=0.8. The reference r boubacar was not used to int erpret this result as normal/abnormal . [place] [address]-04-09 00:20:00 Test Item Value Reference Range Interpretation Comments Eosinophils # (test code 0.1 See_Comment [A utomated message] The = Eosinophils #) system whic h generated this result tra nsmitted reference range : <=0.5. The reference r boubacar was not used to int erpret this result as normal/abnormal . [facility] TpwvgofAGMYMCFTXK3855-99-01 00:20:00 Test Item Value Reference Range Interpretation Comments Basophils # (test code 0.1 See_Comment [Aut omated message] The = Basophils #) system which generated this result tra nsmitted reference range : <=0.2. The reference r boubacar was not used to int erpret this result as normal/abnormal . [facility] RxvvkexYAIPYHDWUO8756-86-77 00:20:00 Test Item Value Reference Range Interpretation Comments C-REACTIVE PROTEIN (test code = 13.2 C-REACTIVE PROTEIN) [employer] BHQSWXY9972-64-55 00:20:00 Test Item Value Reference Range Interpretation Comments ABO/Rh (test code = ABO/Rh) AB POS [facility] [employer] [id number] 00:20:00 Test Item Value Reference Range Interpretation Comments Antibody Scrn (test Negative (10/20/21 7:20 code = Antibody Scrn) PM) [facility] [employer]2022-04-09 00:20:00 Test Item Value Reference Range Interpretation Comments Glucose Lvl (test code = Glucose Lvl) 74 70-99 [facility] [employer]2022-04-09 00:20:00 Test Item Value Reference Range Interpretation Comments BUN (test code = BUN) 15 7-22 [employer]2022-04-09 00:20:00 Test Item Value Reference Range Interpretation Comments Creatinine Lvl (test code = Creatinine 0.61 0.50-1.40 Lvl) [employer]2022-04-09 00:20:00 Test Item Value Reference Range Interpretation Comments Sodium Lvl (test code = Sodium Lvl) 139 135-145 [facility] [employer]2022-04-09 00:20:00 Test Item Value Reference Range Interpretation Comments Potassium Lvl (test code = Potassium 4.9 3.5-5.1 Lvl) [facility]2022-04-09 00:20:00 Test Item Value Reference Range Interpretation Comments Chloride Lvl (test code = Chloride Lvl) 105 95-109 [place] 988842-04-09 00:20:00 Test Item Value Reference Range Interpretation Comments CO2 (test code = CO2) 30 24-32 [place] 988842-04-09 00:20:00 Test Item Value Reference Range Interpretation Comments Calcium Lvl (test code = Calcium Lvl) 9.5 8.5-10.5 [place] 988842-04-09 00:20:00 Test Item Value Reference Range Interpretation Comments AGAP (test code = AGAP) 8.9 10.0-20.0 [place] 988842-04-09 00:20:00 Test Item Value Reference Range Interpretation Comments eGFR (test code = eGFR) 129 [place] 988842-04-09 00:20:00 Test Item Value Reference Range Interpretation Comments Lactic Acid Lvl (test code = Lactic 1.2 0.5-2.2 Acid Lvl) [place] 988842-04-09 00:20:00 Test Item Value Reference Range Interpretation Comments Procalcitonin Lvl (test 0.09 See_Comment [Au tomated message] code = Procalcitonin Lvl) Th e system which generated this result transmitted ref erence range: <=0.10. The reference range was not used to interpr et this result as normal/abnormal . [place] 927472-04-09 00:20:00 Test Item Value Reference Range Interpretation Comments WBC (test code = WBC) 10.1 3.7-10.4 [place] 927472-04-09 00:20:00 Test Item Value Reference Range Interpretation Comments RBC (test code = RBC) 5.14 4.70-6.10 [place] [address]-04-09 00:20:00 Test Item Value Reference Range Interpretation Comments Hgb (test code = Hgb) 15.5 14.0-18.0 [place] [address]-04-09 00:20:00 Test Item Value Reference Range Interpretation Comments Hct (test code = Hct) 46.5 42.0-54.0 [place] [address]-04-09 00:20:00 Test Item Value Reference Range Interpretation Comments MCV (test code = MCV) 90.5 80.0-94.0 [facility]inteXvotpopFCKDYMXVWA0342-15-99 00:20:00 Test Item Value Reference Range Interpretation Comments MCH (test code = MCH) 30.1 pg 27.0-31.0 [facility] PointeTblwnihTMOXVKLMDZ7127-03-92 00:20:00 Test Item Value Reference Range Interpretation Comments MCHC (test code = MCHC) 33.3 32.0-36.0 [facility] PointeEbjmaqgAQIHHBMNJF6513-20-37 00:20:00 Test Item Value Reference Range Interpretation Comments RDW (test code = RDW) 15.7 11.5-14.5 [facility] PointeOyggrfyFFELIDHMQA5637-99-81 00:20:00 Test Item Value Reference Range Interpretation Comments Platelet (test code = Platelet) 302 133-450 [facility] PointeMssfsqrJFXNMMYSNJ3158-68-49 00:20:00 Test Item Value Reference Range Interpretation Comments MPV (test code = MPV) 8.9 7.4-10.4 [facility] PointeYiyfqjtRKVVFYQQDD0993-64-99 00:20:00 Test Item Value Reference Range Interpretation Comments Sed Rate (test code = 17 See_Comment [Auto mated message] The Sed Rate) system which ge nerated this result transmit lester reference range : <=15. The reference range was not used to interpr et this result as dany l/abnormal. [facility] PointeSzzvmcqLKWIMSQBPD4700-66-30 00:20:00 Test Item Value Reference Range Interpretation Comments PT (test code = PT) 13.1 s 12.0-14.7 [facility] PointeKazkbsrPIEOSIGREF8043-31-93 00:20:00 Test Item Value Reference Range Interpretation Comments INR (test code = INR) 1.00 1 0.85-1.17 [place] 927472-04-09 00:20:00 Test Item Value Reference Range Interpretation Comments PTT (test code = PTT) 31.5 s 22.9-35.8 [facility] PointeIpzzkrhDBJVTCPHOD6994-54-66 00:20:00 Test Item Value Reference Range Interpretation Comments Segs (test code = Segs) 68.7 45.0-75.0 [facility] PointeUzdkkamPAKCHIOACD8903-67-55 00:20:00 Test Item Value Reference Range Interpretation Comments Lymphocytes (test code = Lymphocytes) 19.6 20.0-40.0 [place] [address]-04-09 00:20:00 Test Item Value Reference Range Interpretation Comments Monocytes (test code = Monocytes) 9.4 2.0-12.0 [place] 927472-04-09 00:20:00 Test Item Value Reference Range Interpretation Comments Eosinophils (test code = 1.4 See_Comment [A utomated message] The Eosinophils) system which ge nerated this result tra nsmitted reference range : <=4.0. The reference r boubacar was not used to int erpret this result as normal/abnormal . [place] 927472-04-09 00:20:00 Test Item Value Reference Range Interpretation Comments Basophils (test code = 0.9 See_Comment [Aut omated message] The Basophils) system which ge nerated this result tra nsmitted reference range : <=1.0. The reference r boubacar was not used to int erpret this result as normal/abnormal . [place] 927472-04-09 00:20:00 Test Item Value Reference Range Interpretation Comments Neutrophils # (test code = Neutrophils 6.9 1.5-8.1 #) [place] 927472-04-09 00:20:00 Test Item Value Reference Range Interpretation Comments Lymphocytes # (test code = Lymphocytes 2.0 1.0-5.5 #) [place] 927472-04-09 00:20:00 Test Item Value Reference Range Interpretation Comments Monocytes # (test code 1.0 See_Comment [Aut omated message] The = Monocytes #) system which generated this result tra nsmitted reference range : <=0.8. The reference r boubacar was not used to int erpret this result as normal/abnormal . [place] [address]-04-09 00:20:00 Test Item Value Reference Range Interpretation Comments Eosinophils # (test code 0.1 See_Comment [A utomated message] The = Eosinophils #) system whic h generated this result tra nsmitted reference range : <=0.5. The reference r boubacar was not used to int erpret this result as normal/abnormal . [place] [address]-04-09 00:20:00 Test Item Value Reference Range Interpretation Comments Basophils # (test code 0.1 See_Comment [Aut omated message] The = Basophils #) system which generated this result tra nsmitted reference range : <=0.2. The reference r boubacar was not used to int erpret this result as normal/abnormal . [facility] GqhwnviXNPPZMPNFQ1380-52-19 00:20:00 Test Item Value Reference Range Interpretation Comments C-REACTIVE PROTEIN (test code = 13.2 C-REACTIVE PROTEIN) [facility] [employer] [id number] 00:20:00 Test Item Value Reference Range Interpretation Comments ABO/Rh (test code = ABO/Rh) AB POS [facility] [id number] 00:20:00 Test Item Value Reference Range Interpretation Comments Antibody Scrn (test Negative (10/20/21 7:20 code = Antibody Scrn) PM) [facility] [employer] [id number] 00:20:00 Test Item Value Reference Range Interpretation Comments Glucose Lvl (test code = Glucose Lvl) 74 70-99 [facility] [employer] [id number] 00:20:00 Test Item Value Reference Range Interpretation Comments BUN (test code = BUN) 15 7-22 [facility] [employer] [id number] 00:20:00 Test Item Value Reference Range Interpretation Comments Creatinine Lvl (test code = Creatinine 0.61 0.50-1.40 Lvl) [facility] [employer] [id number] 00:20:00 Test Item Value Reference Range Interpretation Comments Sodium Lvl (test code = Sodium Lvl) 139 135-145 [facility] [employer] [id number] 00:20:00 Test Item Value Reference Range Interpretation Comments Potassium Lvl (test code = Potassium 4.9 3.5-5.1 Lvl) [facility] [employer] [id number] 00:20:00 Test Item Value Reference Range Interpretation Comments Chloride Lvl (test code = Chloride Lvl) 105 95-109 [facility] [employer] [id number] 00:20:00 Test Item Value Reference Range Interpretation Comments CO2 (test code = CO2) 30 24-32 [facility] [employer] [id number] 00:20:00 Test Item Value Reference Range Interpretation Comments Calcium Lvl (test code = Calcium Lvl) 9.5 8.5-10.5 [facility] [employer] [id number] 00:20:00 Test Item Value Reference Range Interpretation Comments AGAP (test code = AGAP) 8.9 10.0-20.0 [facility] [id number] [facility] Test Item Value Reference Range Interpretation Comments eGFR (test code = eGFR) 129 [facility] [id number] 00:20:00 Test Item Value Reference Range Interpretation Comments Lactic Acid Lvl (test code = Lactic 1.2 0.5-2.2 Acid Lvl) [facility] [id number] 00:20:00 Test Item Value Reference Range Interpretation Comments Procalcitonin Lvl (test 0.09 See_Comment [Au tomated message] code = Procalcitonin Lvl) Th e system which generated this result transmitted ref erence range: <=0.10. The reference range was not used to interpr et this result as normal/abnormal . [facility] PointeJuwxyklQDIATYDUDU9383-51-35 00:20:00 Test Item Value Reference Range Interpretation Comments WBC (test code = WBC) 10.1 3.7-10.4 [place] 927472-04-09 00:20:00 Test Item Value Reference Range Interpretation Comments RBC (test code = RBC) 5.14 4.70-6.10 [facility] PointeRczagjzYYERCZFMCM6881-75-38 00:20:00 Test Item Value Reference Range Interpretation Comments Hgb (test code = Hgb) 15.5 14.0-18.0 [facility] PointeJaoxzvtPOWNVEPAEI2596-01-51 00:20:00 Test Item Value Reference Range Interpretation Comments Hct (test code = Hct) 46.5 42.0-54.0 [place] 927472-04-09 00:20:00 Test Item Value Reference Range Interpretation Comments MCV (test code = MCV) 90.5 80.0-94.0 [place] 927472-04-09 00:20:00 Test Item Value Reference Range Interpretation Comments MCH (test code = MCH) 30.1 pg 27.0-31.0 [place] 927472-04-09 00:20:00 Test Item Value Reference Range Interpretation Comments MCHC (test code = MCHC) 33.3 32.0-36.0 [place] 927472-04-09 00:20:00 Test Item Value Reference Range Interpretation Comments RDW (test code = RDW) 15.7 11.5-14.5 [place] 927472-04-09 00:20:00 Test Item Value Reference Range Interpretation Comments Platelet (test code = Platelet) 302 133-450 [facility] PointeHwqxnojZHTJVZNQUF3628-12-87 00:20:00 Test Item Value Reference Range Interpretation Comments MPV (test code = MPV) 8.9 7.4-10.4 [facility] PointeUbunleuCTDFBQVNTU8272-65-84 00:20:00 Test Item Value Reference Range Interpretation Comments Sed Rate (test code = 17 See_Comment [Auto mated message] The Sed Rate) system which ge nerated this result transmit lester reference range : <=15. The reference range was not used to interpr et this result as dany l/abnormal. [facility] PointePlqwbllONDFHAMIFK3439-77-76 00:20:00 Test Item Value Reference Range Interpretation Comments PT (test code = PT) 13.1 s 12.0-14.7 [facility] PointeLzeroyjELZBDQEAID9882-05-56 00:20:00 Test Item Value Reference Range Interpretation Comments INR (test code = INR) 1.00 1 0.85-1.17 [facility] PointeOysscrnKVZMMDLQQC5808-38-59 00:20:00 Test Item Value Reference Range Interpretation Comments PTT (test code = PTT) 31.5 s 22.9-35.8 [facility] PointePldbnrvIPDUKESUUG4158-45-50 00:20:00 Test Item Value Reference Range Interpretation Comments Segs (test code = Segs) 68.7 45.0-75.0 [facility] PointeUjhwgwfDHRTRWCMCS5565-07-91 00:20:00 Test Item Value Reference Range Interpretation Comments Lymphocytes (test code = Lymphocytes) 19.6 20.0-40.0 [facility] PointeYtgnuvhERDCASBEQP3876-66-98 00:20:00 Test Item Value Reference Range Interpretation Comments Monocytes (test code = Monocytes) 9.4 2.0-12.0 [place] 927472-04-09 00:20:00 Test Item Value Reference Range Interpretation Comments Eosinophils (test code = 1.4 See_Comment [A utomated message] The Eosinophils) system which ge nerated this result tra nsmitted reference range : <=4.0. The reference r boubacar was not used to int erpret this result as normal/abnormal . [place] 927472-04-09 00:20:00 Test Item Value Reference Range Interpretation Comments Basophils (test code = 0.9 See_Comment [Aut omated message] The Basophils) system which ge nerated this result tra nsmitted reference range : <=1.0. The reference r boubacar was not used to int erpret this result as normal/abnormal . [facility] PointeUdfvphfZMDUGZQHXM3872-38-60 00:20:00 Test Item Value Reference Range Interpretation Comments Neutrophils # (test code = Neutrophils 6.9 1.5-8.1 #) [facility] PointeVtkxziuPVMVJAGCBO0167-52-28 00:20:00 Test Item Value Reference Range Interpretation Comments Lymphocytes # (test code = Lymphocytes 2.0 1.0-5.5 #) [facility] PointeQpfnxpxKIHGTHQFGR6100-65-01 00:20:00 Test Item Value Reference Range Interpretation Comments Monocytes # (test code 1.0 See_Comment [Aut omated message] The = Monocytes #) system which generated this result tra nsmitted reference range : <=0.8. The reference r boubacar was not used to int erpret this result as normal/abnormal . [facility] HospitalCjfgensKRMITZYRGY9367-04-65 00:20:00 Test Item Value Reference Range Interpretation Comments Eosinophils # (test code 0.1 See_Comment [A utomated message] The = Eosinophils #) system whic h generated this result tra nsmitted reference range : <=0.5. The reference r boubacar was not used to int erpret this result as normal/abnormal . [facility] PointeWnunjlaFVIQBZEWJF0564-15-02 00:20:00 Test Item Value Reference Range Interpretation Comments Basophils # (test code 0.1 See_Comment [Aut omated message] The = Basophils #) system which generated this result tra nsmitted reference range : <=0.2. The reference r boubacar was not used to int erpret this result as normal/abnormal . [facility] HospitalCgwkonwUNOBJPIMZL0227-33-06 00:20:00 Test Item Value Reference Range Interpretation Comments C-REACTIVE PROTEIN (test code = 13.2 C-REACTIVE PROTEIN) [facility] [id number] 00:20:00 Test Item Value Reference Range Interpretation Comments ABO/Rh (test code = ABO/Rh) AB POS [facility] [employer] [id number] 00:20:00 Test Item Value Reference Range Interpretation Comments Antibody Scrn (test Negative (48/22 7:20 code = Antibody Scrn) PM) [facility]2022-04-09 00:20:00 Test Item Value Reference Range Interpretation Comments Glucose Lvl (test code = Glucose Lvl) 74 70-99 [facility]2022-04-09 00:20:00 Test Item Value Reference Range Interpretation Comments BUN (test code = BUN) 15 7-22 [place] 988842-04-09 00:20:00 Test Item Value Reference Range Interpretation Comments Creatinine Lvl (test code = Creatinine 0.61 0.50-1.40 Lvl) [facility]2022-04-09 00:20:00 Test Item Value Reference Range Interpretation Comments Sodium Lvl (test code = Sodium Lvl) 139 135-145 [place] 988842-04-09 00:20:00 Test Item Value Reference Range Interpretation Comments Potassium Lvl (test code = Potassium 4.9 3.5-5.1 Lvl) [place] 988842-04-09 00:20:00 Test Item Value Reference Range Interpretation Comments Chloride Lvl (test code = Chloride Lvl) 105 95-109 [facility]2022-04-09 00:20:00 Test Item Value Reference Range Interpretation Comments CO2 (test code = CO2) 30 24-32 [facility]2022-04-09 00:20:00 Test Item Value Reference Range Interpretation Comments Calcium Lvl (test code = Calcium Lvl) 9.5 8.5-10.5 [place] 988842-04-09 00:20:00 Test Item Value Reference Range Interpretation Comments AGAP (test code = AGAP) 8.9 10.0-20.0 [place] 988842-04-09 00:20:00 Test Item Value Reference Range Interpretation Comments eGFR (test code = eGFR) 129 [facility]2022-04-09 00:20:00 Test Item Value Reference Range Interpretation Comments Lactic Acid Lvl (test code = Lactic 1.2 0.5-2.2 Acid Lvl) [place] 988842-04-09 00:20:00 Test Item Value Reference Range Interpretation Comments Procalcitonin Lvl (test 0.09 See_Comment [Au tomated message] code = Procalcitonin Lvl) Th e system which generated this result transmitted ref erence range: <=0.10. The reference range was not used to interpr et this result as normal/abnormal . [facility] PointeRhqlczeMBORZZZZZE6143-35-74 00:20:00 Test Item Value Reference Range Interpretation Comments WBC (test code = WBC) 10.1 3.7-10.4 [place] 927472-04-09 00:20:00 Test Item Value Reference Range Interpretation Comments RBC (test code = RBC) 5.14 4.70-6.10 [facility] PointeRsoizydYMCGMKYGKB6090-42-60 00:20:00 Test Item Value Reference Range Interpretation Comments Hgb (test code = Hgb) 15.5 14.0-18.0 [place] [address]-04-09 00:20:00 Test Item Value Reference Range Interpretation Comments Hct (test code = Hct) 46.5 42.0-54.0 [place] 927472-04-09 00:20:00 Test Item Value Reference Range Interpretation Comments MCV (test code = MCV) 90.5 80.0-94.0 [place] 927472-04-09 00:20:00 Test Item Value Reference Range Interpretation Comments MCH (test code = MCH) 30.1 pg 27.0-31.0 [place] 927472-04-09 00:20:00 Test Item Value Reference Range Interpretation Comments MCHC (test code = MCHC) 33.3 32.0-36.0 [place] 927472-04-09 00:20:00 Test Item Value Reference Range Interpretation Comments RDW (test code = RDW) 15.7 11.5-14.5 [place] 927472-04-09 00:20:00 Test Item Value Reference Range Interpretation Comments Platelet (test code = Platelet) 302 133-450 [place] 927472-04-09 00:20:00 Test Item Value Reference Range Interpretation Comments MPV (test code = MPV) 8.9 7.4-10.4 [place] [address]-04-09 00:20:00 Test Item Value Reference Range Interpretation Comments Sed Rate (test code = 17 See_Comment [Auto mated message] The Sed Rate) system which ge nerated this result transmit lester reference range : <=15. The reference range was not used to interpr et this result as dany l/abnormal. [facility] PointeYubbvnwJSRNIFAZKA5105-03-38 00:20:00 Test Item Value Reference Range Interpretation Comments PT (test code = PT) 13.1 s 12.0-14.7 [place] 927472-04-09 00:20:00 Test Item Value Reference Range Interpretation Comments INR (test code = INR) 1.00 1 0.85-1.17 [place] 927472-04-09 00:20:00 Test Item Value Reference Range Interpretation Comments PTT (test code = PTT) 31.5 s 22.9-35.8 [place] 927472-04-09 00:20:00 Test Item Value Reference Range Interpretation Comments Segs (test code = Segs) 68.7 45.0-75.0 [place] [address]-04-09 00:20:00 Test Item Value Reference Range Interpretation Comments Lymphocytes (test code = Lymphocytes) 19.6 20.0-40.0 [place] 927472-04-09 00:20:00 Test Item Value Reference Range Interpretation Comments Monocytes (test code = Monocytes) 9.4 2.0-12.0 [place] 927472-04-09 00:20:00 Test Item Value Reference Range Interpretation Comments Eosinophils (test code = 1.4 See_Comment [A utomated message] The Eosinophils) system which ge nerated this result tra nsmitted reference range : <=4.0. The reference r boubacar was not used to int erpret this result as normal/abnormal . [facility] PointeWgqnewxWXSLUQOBUJ5071-61-18 00:20:00 Test Item Value Reference Range Interpretation Comments Basophils (test code = 0.9 See_Comment [Aut omated message] The Basophils) system which ge nerated this result tra nsmitted reference range : <=1.0. The reference r boubacar was not used to int erpret this result as normal/abnormal . [facility] PointeLlwhpomTCOQMYCEYW5937-96-07 00:20:00 Test Item Value Reference Range Interpretation Comments Neutrophils # (test code = Neutrophils 6.9 1.5-8.1 #) [facility] PointeHvfofczYZTCVIVYFJ7311-84-57 00:20:00 Test Item Value Reference Range Interpretation Comments Lymphocytes # (test code = Lymphocytes 2.0 1.0-5.5 #) [facility]gdwysoUDEDBDVDIZ0634-81-51 00:20:00 Test Item Value Reference Range Interpretation Comments Monocytes # (test code 1.0 See_Comment [Aut omated message] The = Monocytes #) system which generated this result tra nsmitted reference range : <=0.8. The reference r boubacar was not used to int erpret this result as normal/abnormal . [facility] RenaissanceCujtesqLKMKJUVATU4315-20-56 00:20:00 Test Item Value Reference Range Interpretation Comments Eosinophils # (test code 0.1 See_Comment [A utomated message] The = Eosinophils #) system whic h generated this result tra nsmitted reference range : <=0.5. The reference r boubacar was not used to int erpret this result as normal/abnormal . [facility] RenaissancePwxitdjZUIDAJYFFM4454-69-91 00:20:00 Test Item Value Reference Range Interpretation Comments Basophils # (test code 0.1 See_Comment [Aut omated message] The = Basophils #) system which generated this result tra nsmitted reference range : <=0.2. The reference r boubacar was not used to int erpret this result as normal/abnormal . [facility] FgnpfrgWOVDKSYGYX7459-49-91 00:20:00 Test Item Value Reference Range Interpretation Comments C-REACTIVE PROTEIN (test code = 13.2 C-REACTIVE PROTEIN) [facility] [employer] [id number] 00:20:00 Test Item Value Reference Range Interpretation Comments ABO/Rh (test code = ABO/Rh) AB POS [facility] [employer] [id number] 00:20:00 Test Item Value Reference Range Interpretation Comments Antibody Scrn (test Negative (10/20/21 7:20 code = Antibody Scrn) PM) [facility]2022-04-09 00:20:00 Test Item Value Reference Range Interpretation Comments Glucose Lvl (test code = Glucose Lvl) 74 70-99 [facility] [employer]2022-04-09 00:20:00 Test Item Value Reference Range Interpretation Comments BUN (test code = BUN) 15 7-22 [facility] [employer]2022-04-09 00:20:00 Test Item Value Reference Range Interpretation Comments Creatinine Lvl (test code = Creatinine 0.61 0.50-1.40 Lvl) [place] 988842-04-09 00:20:00 Test Item Value Reference Range Interpretation Comments Sodium Lvl (test code = Sodium Lvl) 139 135-145 [place] 988842-04-09 00:20:00 Test Item Value Reference Range Interpretation Comments Potassium Lvl (test code = Potassium 4.9 3.5-5.1 Lvl) [place] 988842-04-09 00:20:00 Test Item Value Reference Range Interpretation Comments Chloride Lvl (test code = Chloride Lvl) 105 95-109 [place] 988842-04-09 00:20:00 Test Item Value Reference Range Interpretation Comments CO2 (test code = CO2) 30 24-32 [place] 988842-04-09 00:20:00 Test Item Value Reference Range Interpretation Comments Calcium Lvl (test code = Calcium Lvl) 9.5 8.5-10.5 [place] 988842-04-09 00:20:00 Test Item Value Reference Range Interpretation Comments AGAP (test code = AGAP) 8.9 10.0-20.0 [place] 988842-04-09 00:20:00 Test Item Value Reference Range Interpretation Comments eGFR (test code = eGFR) 129 [place] 988842-04-09 00:20:00 Test Item Value Reference Range Interpretation Comments Lactic Acid Lvl (test code = Lactic 1.2 0.5-2.2 Acid Lvl) [place] 988842-04-09 00:20:00 Test Item Value Reference Range Interpretation Comments Procalcitonin Lvl (test 0.09 See_Comment [Au tomated message] code = Procalcitonin Lvl) e system which generated this result transmitted ref erence range: <=0.10. The reference range was not used to interpr et this result as normal/abnormal . [place] 927472-04-09 00:20:00 Test Item Value Reference Range Interpretation Comments WBC (test code = WBC) 10.1 3.7-10.4 [place] 927472-04-09 00:20:00 Test Item Value Reference Range Interpretation Comments RBC (test code = RBC) 5.14 4.70-6.10 [place] 927472-04-09 00:20:00 Test Item Value Reference Range Interpretation Comments Hgb (test code = Hgb) 15.5 14.0-18.0 [facility]inteAjnowrwSLVGOAKJNE3540-17-41 00:20:00 Test Item Value Reference Range Interpretation Comments Hct (test code = Hct) 46.5 42.0-54.0 [facility] PointeMsnvtzmYHFNTWFOSD4539-52-24 00:20:00 Test Item Value Reference Range Interpretation Comments MCV (test code = MCV) 90.5 80.0-94.0 [facility] PointeXnzkehvEABIEYMTDN0165-96-90 00:20:00 Test Item Value Reference Range Interpretation Comments MCH (test code = MCH) 30.1 pg 27.0-31.0 [facility] PointeGlmvldjACYEJZBETN3409-95-72 00:20:00 Test Item Value Reference Range Interpretation Comments MCHC (test code = MCHC) 33.3 32.0-36.0 [facility] PointeJcekfpnQUMMOFLVRC7206-08-31 00:20:00 Test Item Value Reference Range Interpretation Comments RDW (test code = RDW) 15.7 11.5-14.5 [facility] PointeUubeoifDALVGGQBQV5392-62-26 00:20:00 Test Item Value Reference Range Interpretation Comments Platelet (test code = Platelet) 302 133-450 [facility] PointeMsicxefOOYFFYDPYB6956-10-97 00:20:00 Test Item Value Reference Range Interpretation Comments MPV (test code = MPV) 8.9 7.4-10.4 [facility] PointeCfckdgrHNKTUEXURX5912-85-16 00:20:00 Test Item Value Reference Range Interpretation Comments Sed Rate (test code = 17 See_Comment [Auto mated message] The Sed Rate) system which ge nerated this result transmit lester reference range : <=15. The reference range was not used to interpr et this result as dany l/abnormal. [facility] PointeXlvnoetUAZQOOGBTV9608-88-32 00:20:00 Test Item Value Reference Range Interpretation Comments PT (test code = PT) 13.1 s 12.0-14.7 [facility] PointeRguivkySPWKOWRJTL7374-37-82 00:20:00 Test Item Value Reference Range Interpretation Comments INR (test code = INR) 1.00 1 0.85-1.17 [facility] PointeMeprgapVLMKXNMEEL3472-09-12 00:20:00 Test Item Value Reference Range Interpretation Comments PTT (test code = PTT) 31.5 s 22.9-35.8 [facility] PointePxciupwFRLPHSUSSZ1853-72-67 00:20:00 Test Item Value Reference Range Interpretation Comments Segs (test code = Segs) 68.7 45.0-75.0 [facility] PointeXrbwwzpKSSIGHBSJI9657-52-16 00:20:00 Test Item Value Reference Range Interpretation Comments Lymphocytes (test code = Lymphocytes) 19.6 20.0-40.0 [place] 927472-04-09 00:20:00 Test Item Value Reference Range Interpretation Comments Monocytes (test code = Monocytes) 9.4 2.0-12.0 [place] 927472-04-09 00:20:00 Test Item Value Reference Range Interpretation Comments Eosinophils (test code = 1.4 See_Comment [A utomated message] The Eosinophils) system which ge nerated this result tra nsmitted reference range : <=4.0. The reference r boubacar was not used to int erpret this result as normal/abnormal . [facility] PointeLrpjykhGWWEJVEUUS1600-77-83 00:20:00 Test Item Value Reference Range Interpretation Comments Basophils (test code = 0.9 See_Comment [Aut omated message] The Basophils) system which ge nerated this result tra nsmitted reference range : <=1.0. The reference r boubacar was not used to int erpret this result as normal/abnormal . [facility] PointeQkxwdpqGQKQASVCMH5324-29-02 00:20:00 Test Item Value Reference Range Interpretation Comments Neutrophils # (test code = Neutrophils 6.9 1.5-8.1 #) [place] 927472-04-09 00:20:00 Test Item Value Reference Range Interpretation Comments Lymphocytes # (test code = Lymphocytes 2.0 1.0-5.5 #) [place] 927472-04-09 00:20:00 Test Item Value Reference Range Interpretation Comments Monocytes # (test code 1.0 See_Comment [Aut omated message] The = Monocytes #) system which generated this result tra nsmitted reference range : <=0.8. The reference r boubacar was not used to int erpret this result as normal/abnormal . [place] 927472-04-09 00:20:00 Test Item Value Reference Range Interpretation Comments Eosinophils # (test code 0.1 See_Comment [A utomated message] The = Eosinophils #) system whic h generated this result tra nsmitted reference range : <=0.5. The reference r boubacar was not used to int erpret this result as normal/abnormal . [facility]nb[facility]XQQJMXWB0737-17-64 00:20:00 Test Item Value Reference Range Interpretation Comments Basophils # (test code 0.1 See_Comment [Aut omated message] The = Basophils #) system which generated this result tra nsmitted reference range : <=0.2. The reference r boubacar was not used to int erpret this result as normal/abnormal . [facility]DgandrgIOEVGBUQMB3495-13-60 00:20:00 Test Item Value Reference Range Interpretation Comments C-REACTIVE PROTEIN (test code = 13.2 C-REACTIVE PROTEIN) [facility] WITH [id number] 04:47:32 Test Item Value Reference Range Interpretation Comments WBC (test code = See_Comment H [Automated 7490-2) message] The sy stem which [...] RDW-SD (test code = 45.7 fL 38.5-51.6 55421-5) RDW-CV (test code = 14.6 % 12.1-15.4 788-0) PLT (test code = See_Comment [Automated 777-3) message] The sy stem which generated this result transmitted reference range : 150 - 328 10*3/ ?L. The reference r boubacar was not used to interpret this result as normal/abnormal . MPV (test code = 11.0 fL 9.8-13.0 83321-3) NRBC/100 WBC (test See_Comment [Automat ed code = [id number]) message] The system which generated this result transmitted reference range : 0.0 - 10.0 /100 WBCs. The refer ence range was not u sed to interpret th is result as normal/abnormal . NRBC x10^3 (test code <0.01 See_Comment [Auto mated = [id number]) message] The s ystem which generated this result transmitted reference range : 10*3/?L. The reference range was not used to interpret this result as normal/abnormal . GRAN MAT (NEUT) % 72.2 % (test code = 770-8) IMM GRAN % (test code 0.60 % = 5279339476) LYMPH % (test code = 17.7 % 736-9) MONO % (test code = 7.4 % 5905-5) EOS % (test code = 1.8 % 713-8) BASO % (test code = 0.3 % 706-2) GRAN MAT x10^3(ANC) 9.09 10*3/uL 1.99-6.95 H (test code = 6839195793) IMM GRAN x10^3 (test 0.07 10*3/uL 0.00-0.06 H code = 3458781580) LYMPH x10^3 (test code 2.22 10*3/uL 1.09-3.23 = 731-0) MONO x10^3 (test code 0.93 10*3/uL 0.36-1.02 = 742-7) EOS x10^3 (test code = 0.22 10*3/uL 0.06-0.53 711-2) BASO x10^3 (test code 0.04 10*3/uL 0.01-0.09 = 704-7) Lab Interpretation Abnormal (test code = 72917-3) [facility]. METABOLIC PANEL (98289)2021-10-16 04:36:41 Test Item Value Reference Range Interpretation Comments NA (test code = 138 mmol/L 135-145 7153144255) K (test code = 4.6 mmol/L 3.5-5.0 1112012201) CL (test code = 105 mmol/L 98-108 9090229426) CO2 TOTAL (test code = 21 mmol/L 23-31 L 6897171577) AGAP (test code = 2-16 1241068442) BUN (test code = 13 mg/dL 7-23 9944737157) GLUCOSE (test code = 167 mg/dL 70-110 H 0938694200) CREATININE (test code = 0.48 mg/dL 0.60-1.25 L 4620927531) TOTAL BILI (test code = 0.8 mg/dL 0.1-1.5 9672884907) CALCIUM (test code = 9.3 mg/dL 8.6-10.6 2817710976) T PROTEIN (test code = 7.6 g/dL 6.3-8.2 8377692391) ALBUMIN (test code = 4.2 g/dL 3.5-5.0 6295826082) ALK PHOS (test code = 98 U/L 34-122 9562457144) ALTv (test code = 71 U/L 5-50 H 1742-6) AST(SGOT) (test code = 36 U/L 13-40 1752771531) eGFR (test code = mL/min/1.73m2 7457265753) ARPITA (test code = ARPITA) Association of [...] tests). Lab Interpretation Abnormal (test code = 10913-1) [facility] Test Item Value Reference Range Interpretation Comments MAGNESIUM (test code = 4176326088) 1.6 mg/dL 1.7-2.4 L Lab Interpretation (test code = Abnormal 88420-5) [facility] EFXRHRE9316-03-[facility] 07:52:00 Test Item Value Reference Range Interpretation Comments ABO/Rh (test code = ABO/Rh) AB POS [facility]ennialSign[facility] [id number] 07:52:00 Test Item Value Reference Range Interpretation Comments Antibody Scrn (test Negative (10/09/21 2:52 code = Antibody Scrn) AM) [email or web address] [id number] 07:52:00 Test Item Value Reference Range Interpretation Comments Glucose Lvl (test code = Glucose Lvl) 291 70-99 [facility]Aud[facility] VVYWQ7165-64-06 07:52:00 Test Item Value Reference Range Interpretation Comments BUN (test code = BUN) 16 7-22 [email or web address] WLJXE3606-74-58 07:52:00 Test Item Value Reference Range Interpretation Comments Creatinine Lvl (test code = Creatinine 0.83 0.50-1.40 Lvl) [email or web address] FAUKJ8423-76-82 07:52:00 Test Item Value Reference Range Interpretation Comments Sodium Lvl (test code = Sodium Lvl) 138 135-145 [email or web address] YFFIQ7638-76-12 07:52:00 Test Item Value Reference Range Interpretation Comments Potassium Lvl (test code = Potassium 4.7 3.5-5.1 Lvl) [email or web address] WXFXD5521-00-59 07:52:00 Test Item Value Reference Range Interpretation Comments Chloride Lvl (test code = Chloride Lvl) 113 95-109 [facility]2022-03-28 07:52:00 Test Item Value Reference Range Interpretation Comments CO2 (test code = CO2) 18 24-32 [place] 988842-03-28 07:52:00 Test Item Value Reference Range Interpretation Comments AGAP (test code = AGAP) 11.7 10.0-20.0 [place] 988842-03-28 07:52:00 Test Item Value Reference Range Interpretation Comments Calcium Lvl (test code = Calcium Lvl) 9.4 8.5-10.5 [place] 988842-03-28 07:52:00 Test Item Value Reference Range Interpretation Comments eGFR (test code = eGFR) 113 [place] 927472-03-28 07:52:00 Test Item Value Reference Range Interpretation Comments WBC (test code = WBC) 5.5 3.7-10.4 [place] 927472-03-28 07:52:00 Test Item Value Reference Range Interpretation Comments RBC (test code = RBC) 5.53 4.70-6.10 [place] 927472-03-28 07:52:00 Test Item Value Reference Range Interpretation Comments Hgb (test code = Hgb) 16.3 14.0-18.0 [place] 927472-03-28 07:52:00 Test Item Value Reference Range Interpretation Comments Hct (test code = Hct) 50.5 42.0-54.0 [place] 927472-03-28 07:52:00 Test Item Value Reference Range Interpretation Comments MCV (test code = MCV) 91.3 80.0-94.0 [place] 927472-03-28 07:52:00 Test Item Value Reference Range Interpretation Comments MCH (test code = MCH) 29.5 pg 27.0-31.0 [place] 927472-03-28 07:52:00 Test Item Value Reference Range Interpretation Comments MCHC (test code = MCHC) 32.3 32.0-36.0 [place] 927472-03-28 07:52:00 Test Item Value Reference Range Interpretation Comments RDW (test code = RDW) 15.4 11.5-14.5 [place] 927472-03-28 07:52:00 Test Item Value Reference Range Interpretation Comments Platelet (test code = Platelet) 210 133-450 [facility] HospitalPrjkrfxLZBMGJWDDV2886-54-18 07:52:00 Test Item Value Reference Range Interpretation Comments MPV (test code = MPV) 9.3 7.4-10.4 [facility]Modern[facility] [id number] 07:52:00 Test Item Value Reference Range Interpretation Comments ABO/Rh (test code = ABO/Rh) AB POS [facility] [id number] 07:52:00 Test Item Value Reference Range Interpretation Comments Antibody Scrn (test Negative (10/09/21 2:52 code = Antibody Scrn) AM) [facility] [employer] [id number] 07:52:00 Test Item Value Reference Range Interpretation Comments Glucose Lvl (test code = Glucose Lvl) 291 70-99 [facility] [employer] [id number] 07:52:00 Test Item Value Reference Range Interpretation Comments BUN (test code = BUN) 16 - [facility] [employer] [id number] 07:52:00 Test Item Value Reference Range Interpretation Comments Creatinine Lvl (test code = Creatinine 0.83 0.50-1.40 Lvl) [facility] [employer] [id number] 07:52:00 Test Item Value Reference Range Interpretation Comments Sodium Lvl (test code = Sodium Lvl) 138 135-145 [facility] [employer] GDUUX4141-07-08 07:52:00 Test Item Value Reference Range Interpretation Comments Potassium Lvl (test code = Potassium 4.7 3.5-5.1 Lvl) [facility] [employer] [id number] 07:52:00 Test Item Value Reference Range Interpretation Comments Chloride Lvl (test code = Chloride Lvl) 113 95-109 [facility] [employer] [id number] 07:52:00 Test Item Value Reference Range Interpretation Comments CO2 (test code = CO2) 18 -32 [facility] [employer] [id number] 07:52:00 Test Item Value Reference Range Interpretation Comments AGAP (test code = AGAP) 11.7 10.0-20.0 [facility] [employer] [id number] 07:52:00 Test Item Value Reference Range Interpretation Comments Calcium Lvl (test code = Calcium Lvl) 9.4 8.5-10.5 [facility] [id number] 07:52:00 Test Item Value Reference Range Interpretation Comments eGFR (test code = eGFR) 113 [facility] PointeAancdyaTDTADCYKCZ9680-82-88 07:52:00 Test Item Value Reference Range Interpretation Comments WBC (test code = WBC) 5.5 3.7-10.4 [facility] PointeNtgkwqiHKIFWNKPEC5572-13-50 07:52:00 Test Item Value Reference Range Interpretation Comments RBC (test code = RBC) 5.53 4.70-6.10 [facility] PointeSyoyytpLXSAGQHLBE7728-33-64 07:52:00 Test Item Value Reference Range Interpretation Comments Hgb (test code = Hgb) 16.3 14.0-18.0 [facility] PointeClwtteaJDUPVDIZDK0192-48-36 07:52:00 Test Item Value Reference Range Interpretation Comments Hct (test code = Hct) 50.5 42.0-54.0 [facility] PointeFbhblumDRLTKZIEFZ4285-62-33 07:52:00 Test Item Value Reference Range Interpretation Comments MCV (test code = MCV) 91.3 80.0-94.0 [facility] PointeRlpyhxjMGIVWJIISJ3697-11-58 07:52:00 Test Item Value Reference Range Interpretation Comments MCH (test code = MCH) 29.5 pg 27.0-31.0 [facility] PointeKfzjkrhBPZYNOPAQB4666-17-98 07:52:00 Test Item Value Reference Range Interpretation Comments MCHC (test code = MCHC) 32.3 32.0-36.0 [facility] PointeEfccifiDZZSPNWEEL0577-25-31 07:52:00 Test Item Value Reference Range Interpretation Comments RDW (test code = RDW) 15.4 11.5-14.5 [facility] PointeCvgpjnjRUOMKVKJSZ3464-17-15 07:52:00 Test Item Value Reference Range Interpretation Comments Platelet (test code = Platelet) 210 133-450 [facility] PointeQyyfaycVOYDIDXTQM7136-44-79 07:52:00 Test Item Value Reference Range Interpretation Comments MPV (test code = MPV) 9.3 7.4-10.4 [facility]Key[facility] [id number] 07:52:00 Test Item Value Reference Range Interpretation Comments ABO/Rh (test code = ABO/Rh) AB POS [facility] [employer] [id number] 07:52:00 Test Item Value Reference Range Interpretation Comments Antibody Scrn (test Negative (10/09/21 2:52 code = Antibody Scrn) AM) [place] 988842-03-28 07:52:00 Test Item Value Reference Range Interpretation Comments Glucose Lvl (test code = Glucose Lvl) 291 70-99 [place] 988842-03-28 07:52:00 Test Item Value Reference Range Interpretation Comments BUN (test code = BUN) 16 7-22 [place] 988842-03-28 07:52:00 Test Item Value Reference Range Interpretation Comments Creatinine Lvl (test code = Creatinine 0.83 0.50-1.40 Lvl) [place] 988842-03-28 07:52:00 Test Item Value Reference Range Interpretation Comments Sodium Lvl (test code = Sodium Lvl) 138 135-145 [place] 988842-03-28 07:52:00 Test Item Value Reference Range Interpretation Comments Potassium Lvl (test code = Potassium 4.7 3.5-5.1 Lvl) [place] 988842-03-28 07:52:00 Test Item Value Reference Range Interpretation Comments Chloride Lvl (test code = Chloride Lvl) 113 95-109 [place] 988842-03-28 07:52:00 Test Item Value Reference Range Interpretation Comments CO2 (test code = CO2) 18 24-32 [place] 988842-03-28 07:52:00 Test Item Value Reference Range Interpretation Comments AGAP (test code = AGAP) 11.7 10.0-20.0 [place] 988842-03-28 07:52:00 Test Item Value Reference Range Interpretation Comments Calcium Lvl (test code = Calcium Lvl) 9.4 8.5-10.5 [place] 988842-03-28 07:52:00 Test Item Value Reference Range Interpretation Comments eGFR (test code = eGFR) 113 [place] 927472-03-28 07:52:00 Test Item Value Reference Range Interpretation Comments WBC (test code = WBC) 5.5 3.7-10.4 [place] 927472-03-28 07:52:00 Test Item Value Reference Range Interpretation Comments RBC (test code = RBC) 5.53 4.70-6.10 [place] 927472-03-28 07:52:00 Test Item Value Reference Range Interpretation Comments Hgb (test code = Hgb) 16.3 14.0-18.0 [facility] HospitalTllgjywEXHDXEJTYH5567-36-15 07:52:00 Test Item Value Reference Range Interpretation Comments Hct (test code = Hct) 50.5 42.0-54.0 [facility] HospitalBwpklzmCVBLGLPJPR2085-77-97 07:52:00 Test Item Value Reference Range Interpretation Comments MCV (test code = MCV) 91.3 80.0-94.0 [facility] RenaissanceXlwtikxNHCHSBMFGI8914-37-12 07:52:00 Test Item Value Reference Range Interpretation Comments MCH (test code = MCH) 29.5 pg 27.0-31.0 [facility] RenaissanceWlxpupiKWWFDQPGFD5208-49-72 07:52:00 Test Item Value Reference Range Interpretation Comments MCHC (test code = MCHC) 32.3 32.0-36.0 [facility] RenaissanceGbkgytzVPTRODNVWD3324-06-08 07:52:00 Test Item Value Reference Range Interpretation Comments RDW (test code = RDW) 15.4 11.5-14.5 [facility] HospitalRuaqienDTUUHQIFPI1499-38-32 07:52:00 Test Item Value Reference Range Interpretation Comments Platelet (test code = Platelet) 210 133-450 [facility] RenaissanceSponzljAYMCCULXOF0990-91-87 07:52:00 Test Item Value Reference Range Interpretation Comments MPV (test code = MPV) 9.3 7.4-10.4 [facility] [employer] [id number] 07:52:00 Test Item Value Reference Range Interpretation Comments ABO/Rh (test code = ABO/Rh) AB POS [facility] [employer] [id number] 07:52:00 Test Item Value Reference Range Interpretation Comments Antibody Scrn (test Negative (10/09/21 2:52 code = Antibody Scrn) AM) [facility] [employer] [id number] 07:52:00 Test Item Value Reference Range Interpretation Comments Glucose Lvl (test code = Glucose Lvl) 291 70-99 [facility] [email or web address] [id number] 07:52:00 Test Item Value Reference Range Interpretation Comments BUN (test code = BUN) 16 7- [facility] [employer] [id number] 07:52:00 Test Item Value Reference Range Interpretation Comments Creatinine Lvl (test code = Creatinine 0.83 0.50-1.40 Lvl) [place] 988842-03-28 07:52:00 Test Item Value Reference Range Interpretation Comments Sodium Lvl (test code = Sodium Lvl) 138 135-145 [place] 988842-03-28 07:52:00 Test Item Value Reference Range Interpretation Comments Potassium Lvl (test code = Potassium 4.7 3.5-5.1 Lvl) [place] 988842-03-28 07:52:00 Test Item Value Reference Range Interpretation Comments Chloride Lvl (test code = Chloride Lvl) 113 95-109 [place] 988842-03-28 07:52:00 Test Item Value Reference Range Interpretation Comments CO2 (test code = CO2) 18 24-32 [place] 988842-03-28 07:52:00 Test Item Value Reference Range Interpretation Comments AGAP (test code = AGAP) 11.7 10.0-20.0 [place] 988842-03-28 07:52:00 Test Item Value Reference Range Interpretation Comments Calcium Lvl (test code = Calcium Lvl) 9.4 8.5-10.5 [place] 988842-03-28 07:52:00 Test Item Value Reference Range Interpretation Comments eGFR (test code = eGFR) 113 [place] 927472-03-28 07:52:00 Test Item Value Reference Range Interpretation Comments WBC (test code = WBC) 5.5 3.7-10.4 [place] 927472-03-28 07:52:00 Test Item Value Reference Range Interpretation Comments RBC (test code = RBC) 5.53 4.70-6.10 [place] [address]-03-28 07:52:00 Test Item Value Reference Range Interpretation Comments Hgb (test code = Hgb) 16.3 14.0-18.0 [place] 119[address]-03-28 07:52:00 Test Item Value Reference Range Interpretation Comments Hct (test code = Hct) 50.5 42.0-54.0 [place] 119[address]-03-28 07:52:00 Test Item Value Reference Range Interpretation Comments MCV (test code = MCV) 91.3 80.0-94.0 [place] 119[address]-03-28 07:52:00 Test Item Value Reference Range Interpretation Comments MCH (test code = MCH) 29.5 pg 27.0-31.0 [facility] HospitalRnlmhsvIOMCLIDNDQ4786-79-99 07:52:00 Test Item Value Reference Range Interpretation Comments MCHC (test code = MCHC) 32.3 32.0-36.0 [facility] HospitalQgzgwtyRRYXGNLDHD4103-26-69 07:52:00 Test Item Value Reference Range Interpretation Comments RDW (test code = RDW) 15.4 11.5-14.5 [facility] RenaissanceYnlzvahAEFGZBUCOO6217-74-59 07:52:00 Test Item Value Reference Range Interpretation Comments Platelet (test code = Platelet) 210 133-450 [facility] RenaissanceRtgjwlgNHTAACIFRQ8607-09-66 07:52:00 Test Item Value Reference Range Interpretation Comments MPV (test code = MPV) 9.3 7.4-10.4 [facility] [employer] [id number] 07:52:00 Test Item Value Reference Range Interpretation Comments ABO/Rh (test code = ABO/Rh) AB POS [facility] [employer] [id number] 07:52:00 Test Item Value Reference Range Interpretation Comments Antibody Scrn (test Negative (10/09/21 2:52 code = Antibody Scrn) AM) [facility] [employer] [id number] 07:52:00 Test Item Value Reference Range Interpretation Comments Glucose Lvl (test code = Glucose Lvl) 291 70-99 [facility] [employer] [id number] 07:52:00 Test Item Value Reference Range Interpretation Comments BUN (test code = BUN) 16 7-22 [facility] [employer] [id number] 07:52:00 Test Item Value Reference Range Interpretation Comments Creatinine Lvl (test code = Creatinine 0.83 0.50-1.40 Lvl) [facility] [employer]2022-03-28 07:52:00 Test Item Value Reference Range Interpretation Comments Sodium Lvl (test code = Sodium Lvl) 138 135-145 [facility] [employer] [id number] 07:52:00 Test Item Value Reference Range Interpretation Comments Potassium Lvl (test code = Potassium 4.7 3.5-5.1 Lvl) [facility] [employer] RYVQQ0226-02-31 07:52:00 Test Item Value Reference Range Interpretation Comments Chloride Lvl (test code = Chloride Lvl) 113 95-109 [facility]2022-03-28 07:52:00 Test Item Value Reference Range Interpretation Comments CO2 (test code = CO2) 18 24-32 [place] 988842-03-28 07:52:00 Test Item Value Reference Range Interpretation Comments AGAP (test code = AGAP) 11.7 10.0-20.0 [place] 988842-03-28 07:52:00 Test Item Value Reference Range Interpretation Comments Calcium Lvl (test code = Calcium Lvl) 9.4 8.5-10.5 [facility]2022-03-28 07:52:00 Test Item Value Reference Range Interpretation Comments eGFR (test code = eGFR) 113 [place] 927472-03-28 07:52:00 Test Item Value Reference Range Interpretation Comments WBC (test code = WBC) 5.5 3.7-10.4 [place] 927472-03-28 07:52:00 Test Item Value Reference Range Interpretation Comments RBC (test code = RBC) 5.53 4.70-6.10 [place] 927472-03-28 07:52:00 Test Item Value Reference Range Interpretation Comments Hgb (test code = Hgb) 16.3 14.0-18.0 [place] 927472-03-28 07:52:00 Test Item Value Reference Range Interpretation Comments Hct (test code = Hct) 50.5 42.0-54.0 [place] 927472-03-28 07:52:00 Test Item Value Reference Range Interpretation Comments MCV (test code = MCV) 91.3 80.0-94.0 [place] 927472-03-28 07:52:00 Test Item Value Reference Range Interpretation Comments MCH (test code = MCH) 29.5 pg 27.0-31.0 [place] 927472-03-28 07:52:00 Test Item Value Reference Range Interpretation Comments MCHC (test code = MCHC) 32.3 32.0-36.0 [place] 927472-03-28 07:52:00 Test Item Value Reference Range Interpretation Comments RDW (test code = RDW) 15.4 11.5-14.5 [place] 927472-03-28 07:52:00 Test Item Value Reference Range Interpretation Comments Platelet (test code = Platelet) 210 133-[facility] 07:52:00 Test Item Value Reference Range Interpretation Comments MPV (test code = MPV) 9.3 7.4-10.4 [facility] [employer] [id number] 07:52:00 Test Item Value Reference Range Interpretation Comments ABO/Rh (test code = ABO/Rh) AB POS [facility] [employer] [id number] 07:52:00 Test Item Value Reference Range Interpretation Comments Antibody Scrn (test Negative (10/09/21 2:52 code = Antibody Scrn) AM) [facility] [employer] [id number] 07:52:00 Test Item Value Reference Range Interpretation Comments Glucose Lvl (test code = Glucose Lvl) 291 70-99 [facility] [employer] [id number] 07:52:00 Test Item Value Reference Range Interpretation Comments BUN (test code = BUN) 16 - [facility] [employer] [id number] 07:52:00 Test Item Value Reference Range Interpretation Comments Creatinine Lvl (test code = Creatinine 0.83 0.50-1.40 Lvl) [facility] [employer] [id number] 07:52:00 Test Item Value Reference Range Interpretation Comments Sodium Lvl (test code = Sodium Lvl) 138 135-145 [facility] [employer] [id number] 07:52:00 Test Item Value Reference Range Interpretation Comments Potassium Lvl (test code = Potassium 4.7 3.5-5.1 Lvl) [facility] [place] [id number] 07:52:00 Test Item Value Reference Range Interpretation Comments Chloride Lvl (test code = Chloride Lvl) 113 95-109 [facility] [employer] [id number] 07:52:00 Test Item Value Reference Range Interpretation Comments CO2 (test code = CO2) 18 -32 [facility] [employer] [id number] 07:52:00 Test Item Value Reference Range Interpretation Comments AGAP (test code = AGAP) 11.7 10.0-20.0 [facility] [place] [id number] 07:52:00 Test Item Value Reference Range Interpretation Comments Calcium Lvl (test code = Calcium Lvl) 9.4 8.5-10.5 [facility] [id number] 07:52:00 Test Item Value Reference Range Interpretation Comments eGFR (test code = eGFR) 113 [facility]ZymcksoPCPEVMJHNM0145-13-29 07:52:00 Test Item Value Reference Range Interpretation Comments WBC (test code = WBC) 5.5 3.7-10.4 [facility]inteThfegbiUNDYXUQWLY8762-24-57 07:52:00 Test Item Value Reference Range Interpretation Comments RBC (test code = RBC) 5.53 4.70-6.10 [facility] PointeGylthbgQZHGWETDGB4880-14-34 07:52:00 Test Item Value Reference Range Interpretation Comments Hgb (test code = Hgb) 16.3 14.0-18.0 [facility] PointeNykqpdsUYTISEXJJJ6222-00-84 07:52:00 Test Item Value Reference Range Interpretation Comments Hct (test code = Hct) 50.5 42.0-54.0 [facility] PointeHdjoewbCEQVGOCENJ0341-55-45 07:52:00 Test Item Value Reference Range Interpretation Comments MCV (test code = MCV) 91.3 80.0-94.0 [facility]dr[facility]pbWUBNJEOOLU9826-84-44 07:52:00 Test Item Value Reference Range Interpretation Comments MCH (test code = MCH) 29.5 pg 27.0-31.0 [facility]inteNsjhedrFRJBYLNQPO1577-16-34 07:52:00 Test Item Value Reference Range Interpretation Comments MCHC (test code = MCHC) 32.3 32.0-36.0 [facility]inteImcilpnDMFVJBNWYD3164-77-41 07:52:00 Test Item Value Reference Range Interpretation Comments RDW (test code = RDW) 15.4 11.5-14.5 [facility] PointeIobvfenGDIYPUWMHQ5515-33-44 07:52:00 Test Item Value Reference Range Interpretation Comments Platelet (test code = Platelet) 210 133-450 [facility]HfscafjJUUOHEKKTQ2038-20-51 07:52:00 Test Item Value Reference Range Interpretation Comments MPV (test code = MPV) 9.3 7.4-10.4 [facility] [employer] [id number] 07:52:00 Test Item Value Reference Range Interpretation Comments ABO/Rh (test code = ABO/Rh) AB POS [facility] [employer] [id number] 07:52:00 Test Item Value Reference Range Interpretation Comments Antibody Scrn (test Negative (10/09/21 2:52 code = Antibody Scrn) AM) [place] 988842-03-28 07:52:00 Test Item Value Reference Range Interpretation Comments Glucose Lvl (test code = Glucose Lvl) 291 70-99 [place] 988842-03-28 07:52:00 Test Item Value Reference Range Interpretation Comments BUN (test code = BUN) 16 7- [place] 988842-03-28 07:52:00 Test Item Value Reference Range Interpretation Comments Creatinine Lvl (test code = Creatinine 0.83 0.50-1.40 Lvl) [place] 988842-03-28 07:52:00 Test Item Value Reference Range Interpretation Comments Sodium Lvl (test code = Sodium Lvl) 138 135-145 [place] 988842-03-28 07:52:00 Test Item Value Reference Range Interpretation Comments Potassium Lvl (test code = Potassium 4.7 3.5-5.1 Lvl) [place] 988842-03-28 07:52:00 Test Item Value Reference Range Interpretation Comments Chloride Lvl (test code = Chloride Lvl) 113 95-109 [place] 988842-03-28 07:52:00 Test Item Value Reference Range Interpretation Comments CO2 (test code = CO2) 18 24-32 [facility]2022-03-28 07:52:00 Test Item Value Reference Range Interpretation Comments AGAP (test code = AGAP) 11.7 10.0-20.0 [place] 988842-03-28 07:52:00 Test Item Value Reference Range Interpretation Comments Calcium Lvl (test code = Calcium Lvl) 9.4 8.5-10.5 [facility]2022-03-28 07:52:00 Test Item Value Reference Range Interpretation Comments eGFR (test code = eGFR) 113 [place] 927472-03-28 07:52:00 Test Item Value Reference Range Interpretation Comments WBC (test code = WBC) 5.5 3.7-10.4 [place] 927472-03-28 07:52:00 Test Item Value Reference Range Interpretation Comments RBC (test code = RBC) 5.53 4.70-6.10 [place] [address]-03-28 07:52:00 Test Item Value Reference Range Interpretation Comments Hgb (test code = Hgb) 16.3 14.0-18.0 [facility]deUJQCHZHOEQ3779-77-10 07:52:00 Test Item Value Reference Range Interpretation Comments Hct (test code = Hct) 50.5 42.0-54.0 [facility]LwgchdcADRSHSJCME9359-23-15 07:52:00 Test Item Value Reference Range Interpretation Comments MCV (test code = MCV) 91.3 80.0-94.0 [facility] RenaissanceNwszdfyJSBMAEEOFG0692-49-93 07:52:00 Test Item Value Reference Range Interpretation Comments MCH (test code = MCH) 29.5 pg 27.0-31.0 [facility] RenaissanceNmsxgamEMCKCOBCUO0663-90-09 07:52:00 Test Item Value Reference Range Interpretation Comments MCHC (test code = MCHC) 32.3 32.0-36.0 [facility] RenaissanceLgchnnbOTGLSWIACT3436-26-24 07:52:00 Test Item Value Reference Range Interpretation Comments RDW (test code = RDW) 15.4 11.5-14.5 [facility] RenaissanceCuriaglFECGMCPOZV1689-91-28 07:52:00 Test Item Value Reference Range Interpretation Comments Platelet (test code = Platelet) 210 133-450 [facility] RenaissanceYivcvzqONEESGCHRQ4516-32-65 07:52:00 Test Item Value Reference Range Interpretation Comments MPV (test code = MPV) 9.3 7.4-10.4 [facility] [employer] [id number] 07:52:00 Test Item Value Reference Range Interpretation Comments ABO/Rh (test code = ABO/Rh) AB POS [facility] [employer] [id number] 07:52:00 Test Item Value Reference Range Interpretation Comments Antibody Scrn (test Negative (10/09/21 2:52 code = Antibody Scrn) AM) [facility] [place] [id number] 07:52:00 Test Item Value Reference Range Interpretation Comments Glucose Lvl (test code = Glucose Lvl) 291 70-99 [facility] [place] [id number] 07:52:00 Test Item Value Reference Range Interpretation Comments BUN (test code = BUN) 16 7- [facility] [place] [id number] 07:52:00 Test Item Value Reference Range Interpretation Comments Creatinine Lvl (test code = Creatinine 0.83 0.50-1.40 Lvl) [place] 988842-03-28 07:52:00 Test Item Value Reference Range Interpretation Comments Sodium Lvl (test code = Sodium Lvl) 138 135-145 [place] 988842-03-28 07:52:00 Test Item Value Reference Range Interpretation Comments Potassium Lvl (test code = Potassium 4.7 3.5-5.1 Lvl) [place] 988842-03-28 07:52:00 Test Item Value Reference Range Interpretation Comments Chloride Lvl (test code = Chloride Lvl) 113 95-109 [place] 988842-03-28 07:52:00 Test Item Value Reference Range Interpretation Comments CO2 (test code = CO2) 18 24-32 [place] 988842-03-28 07:52:00 Test Item Value Reference Range Interpretation Comments AGAP (test code = AGAP) 11.7 10.0-20.0 [place] 988842-03-28 07:52:00 Test Item Value Reference Range Interpretation Comments Calcium Lvl (test code = Calcium Lvl) 9.4 8.5-10.5 [place] 988842-03-28 07:52:00 Test Item Value Reference Range Interpretation Comments eGFR (test code = eGFR) 113 [place] 927472-03-28 07:52:00 Test Item Value Reference Range Interpretation Comments WBC (test code = WBC) 5.5 3.7-10.4 [place] 927472-03-28 07:52:00 Test Item Value Reference Range Interpretation Comments RBC (test code = RBC) 5.53 4.70-6.10 [place] [address]-03-28 07:52:00 Test Item Value Reference Range Interpretation Comments Hgb (test code = Hgb) 16.3 14.0-18.0 [place] [address]-03-28 07:52:00 Test Item Value Reference Range Interpretation Comments Hct (test code = Hct) 50.5 42.0-54.0 [place] [address]-03-28 07:52:00 Test Item Value Reference Range Interpretation Comments MCV (test code = MCV) 91.3 80.0-94.0 [address]03-28 07:52:00 Test Item Value Reference Range Interpretation Comments MCH (test code = MCH) 29.5 pg 27.0-31.0 [place] 927472-03-28 07:52:00 Test Item Value Reference Range Interpretation Comments MCHC (test code = MCHC) 32.3 32.0-36.0 [place] 927472-03-28 07:52:00 Test Item Value Reference Range Interpretation Comments RDW (test code = RDW) 15.4 11.5-14.5 [place] [address]-03-28 07:52:00 Test Item Value Reference Range Interpretation Comments Platelet (test code = Platelet) 210 133-450 [place] 927472-03-28 07:52:00 Test Item Value Reference Range Interpretation Comments MPV (test code = MPV) 9.3 7.4-10.4 [facility]2022-03-27 10:12:00 Test Item Value Reference Range Interpretation Comments Glucose Lvl (test code = Glucose Lvl) 115 70-99 [facility]2022-03-27 10:12:00 Test Item Value Reference Range Interpretation Comments BUN (test code = BUN) 18 7-22 [place] 988842-03-27 10:12:00 Test Item Value Reference Range Interpretation Comments Creatinine Lvl (test code = Creatinine 0.78 0.50-1.40 Lvl) [place] 988842-03-27 10:12:00 Test Item Value Reference Range Interpretation Comments Sodium Lvl (test code = Sodium Lvl) 138 135-145 [place] 988842-03-27 10:12:00 Test Item Value Reference Range Interpretation Comments Potassium Lvl (test code = Potassium 4.6 3.5-5.1 Lvl) [place] 988842-03-27 10:12:00 Test Item Value Reference Range Interpretation Comments Chloride Lvl (test code = Chloride Lvl) 111 95-109 [place] 988842-03-27 10:12:00 Test Item Value Reference Range Interpretation Comments CO2 (test code = CO2) 21 24-32 [place] 988842-03-27 10:12:00 Test Item Value Reference Range Interpretation Comments AGAP (test code = AGAP) 10.6 10.0-20.0 [facility]2022-03-27 10:12:00 Test Item Value Reference Range Interpretation Comments Calcium Lvl (test code = Calcium Lvl) 8.6 8.5-10.5 [facility]2022-03-27 10:12:00 Test Item Value Reference Range Interpretation Comments eGFR (test code = eGFR) 116 [facility]inteUnoyijsBEQUGPFYMX0490-69-14 10:12:00 Test Item Value Reference Range Interpretation Comments WBC (test code = WBC) 8.2 3.7-10.4 [place] 927472-03-27 10:12:00 Test Item Value Reference Range Interpretation Comments RBC (test code = RBC) 5.14 4.70-6.10 [place] 927472-03-27 10:12:00 Test Item Value Reference Range Interpretation Comments Hgb (test code = Hgb) 15.5 14.0-18.0 [place] 927472-03-27 10:12:00 Test Item Value Reference Range Interpretation Comments Hct (test code = Hct) 46.0 42.0-54.0 [place] 927472-03-27 10:12:00 Test Item Value Reference Range Interpretation Comments MCV (test code = MCV) 89.5 80.0-94.0 [place] [address]-03-27 10:12:00 Test Item Value Reference Range Interpretation Comments MCH (test code = MCH) 30.2 pg 27.0-31.0 [place] 927472-03-27 10:12:00 Test Item Value Reference Range Interpretation Comments MCHC (test code = MCHC) 33.8 32.0-36.0 [place] 927472-03-27 10:12:00 Test Item Value Reference Range Interpretation Comments RDW (test code = RDW) 15.3 11.5-14.5 [place] 927472-03-27 10:12:00 Test Item Value Reference Range Interpretation Comments Platelet (test code = Platelet) 358 133-450 [place] 927472-03-27 10:12:00 Test Item Value Reference Range Interpretation Comments MPV (test code = MPV) 8.3 7.4-10.4 [facility]2022-03-27 10:12:00 Test Item Value Reference Range Interpretation Comments Glucose Lvl (test code = Glucose Lvl) 115 70-99 [place] 988842-03-27 10:12:00 Test Item Value Reference Range Interpretation Comments BUN (test code = BUN) 18 7-22 [place] 988842-03-27 10:12:00 Test Item Value Reference Range Interpretation Comments Creatinine Lvl (test code = Creatinine 0.78 0.50-1.40 Lvl) [place] 988842-03-27 10:12:00 Test Item Value Reference Range Interpretation Comments Sodium Lvl (test code = Sodium Lvl) 138 135-145 [place] 988842-03-27 10:12:00 Test Item Value Reference Range Interpretation Comments Potassium Lvl (test code = Potassium 4.6 3.5-5.1 Lvl) [place] 988842-03-27 10:12:00 Test Item Value Reference Range Interpretation Comments Chloride Lvl (test code = Chloride Lvl) 111 95-109 [place] 988842-03-27 10:12:00 Test Item Value Reference Range Interpretation Comments CO2 (test code = CO2) 21 24-32 [place] 988842-03-27 10:12:00 Test Item Value Reference Range Interpretation Comments AGAP (test code = AGAP) 10.6 10.0-20.0 [place] 988842-03-27 10:12:00 Test Item Value Reference Range Interpretation Comments Calcium Lvl (test code = Calcium Lvl) 8.6 8.5-10.5 [place] 988842-03-27 10:12:00 Test Item Value Reference Range Interpretation Comments eGFR (test code = eGFR) 116 [place] [address]-03-27 10:12:00 Test Item Value Reference Range Interpretation Comments WBC (test code = WBC) 8.2 3.7-10.4 [place] [address]-03-27 10:12:00 Test Item Value Reference Range Interpretation Comments RBC (test code = RBC) 5.14 4.70-6.10 [place] 927472-03-27 10:12:00 Test Item Value Reference Range Interpretation Comments Hgb (test code = Hgb) 15.5 14.0-18.0 [address]03-27 10:12:00 Test Item Value Reference Range Interpretation Comments Hct (test code = Hct) 46.0 42.0-54.0 [place] [address]-03-27 10:12:00 Test Item Value Reference Range Interpretation Comments MCV (test code = MCV) 89.5 80.0-94.0 [place] [address]-03-27 10:12:00 Test Item Value Reference Range Interpretation Comments MCH (test code = MCH) 30.2 pg 27.0-31.0 [place] [address]-03-27 10:12:00 Test Item Value Reference Range Interpretation Comments MCHC (test code = MCHC) 33.8 32.0-36.0 [place] [address]-03-27 10:12:00 Test Item Value Reference Range Interpretation Comments RDW (test code = RDW) 15.3 11.5-14.5 [address]03-27 10:12:00 Test Item Value Reference Range Interpretation Comments Platelet (test code = Platelet) 358 133-450 [place] [address]-03-27 10:12:00 Test Item Value Reference Range Interpretation Comments MPV (test code = MPV) 8.3 7.4-10.4 [place] 988842-03-27 10:12:00 Test Item Value Reference Range Interpretation Comments Glucose Lvl (test code = Glucose Lvl) 115 70-99 [place] 988842-03-27 10:12:00 Test Item Value Reference Range Interpretation Comments BUN (test code = BUN) 18 7-22 [place] 988842-03-27 10:12:00 Test Item Value Reference Range Interpretation Comments Creatinine Lvl (test code = Creatinine 0.78 0.50-1.40 Lvl) [place] 988842-03-27 10:12:00 Test Item Value Reference Range Interpretation Comments Sodium Lvl (test code = Sodium Lvl) 138 135-145 [place] 988842-03-27 10:12:00 Test Item Value Reference Range Interpretation Comments Potassium Lvl (test code = Potassium 4.6 3.5-5.1 Lvl) [place] 988842-03-27 10:12:00 Test Item Value Reference Range Interpretation Comments Chloride Lvl (test code = Chloride Lvl) 111 95-109 [facility]2022-03-27 10:12:00 Test Item Value Reference Range Interpretation Comments CO2 (test code = CO2) 21 24-32 [place] 988842-03-27 10:12:00 Test Item Value Reference Range Interpretation Comments AGAP (test code = AGAP) 10.6 10.0-20.0 [place] 988842-03-27 10:12:00 Test Item Value Reference Range Interpretation Comments Calcium Lvl (test code = Calcium Lvl) 8.6 8.5-10.5 [facility]2022-03-27 10:12:00 Test Item Value Reference Range Interpretation Comments eGFR (test code = eGFR) 116 [facility]inteUccidkqJWFPPXMOIS6138-65-62 10:12:00 Test Item Value Reference Range Interpretation Comments WBC (test code = WBC) 8.2 3.7-10.4 [place] 927472-03-27 10:12:00 Test Item Value Reference Range Interpretation Comments RBC (test code = RBC) 5.14 4.70-6.10 [place] 927472-03-27 10:12:00 Test Item Value Reference Range Interpretation Comments Hgb (test code = Hgb) 15.5 14.0-18.0 [place] 927472-03-27 10:12:00 Test Item Value Reference Range Interpretation Comments Hct (test code = Hct) 46.0 42.0-54.0 [place] 927472-03-27 10:12:00 Test Item Value Reference Range Interpretation Comments MCV (test code = MCV) 89.5 80.0-94.0 [place] 927472-03-27 10:12:00 Test Item Value Reference Range Interpretation Comments MCH (test code = MCH) 30.2 pg 27.0-31.0 [place] [address]-03-27 10:12:00 Test Item Value Reference Range Interpretation Comments MCHC (test code = MCHC) 33.8 32.0-36.0 [place] [address]-03-27 10:12:00 Test Item Value Reference Range Interpretation Comments RDW (test code = RDW) 15.3 11.5-14.5 [place] 927472-03-27 10:12:00 Test Item Value Reference Range Interpretation Comments Platelet (test code = Platelet) 358 133-450 [place] 927472-03-27 10:12:00 Test Item Value Reference Range Interpretation Comments MPV (test code = MPV) 8.3 7.4-10.4 [place] 988842-03-27 10:12:00 Test Item Value Reference Range Interpretation Comments Glucose Lvl (test code = Glucose Lvl) 115 70-99 [place] 988842-03-27 10:12:00 Test Item Value Reference Range Interpretation Comments BUN (test code = BUN) 18 7-22 [place] 988842-03-27 10:12:00 Test Item Value Reference Range Interpretation Comments Creatinine Lvl (test code = Creatinine 0.78 0.50-1.40 Lvl) [place] 988842-03-27 10:12:00 Test Item Value Reference Range Interpretation Comments Sodium Lvl (test code = Sodium Lvl) 138 135-145 [place] 988842-03-27 10:12:00 Test Item Value Reference Range Interpretation Comments Potassium Lvl (test code = Potassium 4.6 3.5-5.1 Lvl) [place] 988842-03-27 10:12:00 Test Item Value Reference Range Interpretation Comments Chloride Lvl (test code = Chloride Lvl) 111 95-109 [place] 988842-03-27 10:12:00 Test Item Value Reference Range Interpretation Comments CO2 (test code = CO2) 21 24-32 [place] 988842-03-27 10:12:00 Test Item Value Reference Range Interpretation Comments AGAP (test code = AGAP) 10.6 10.0-20.0 [place] 988842-03-27 10:12:00 Test Item Value Reference Range Interpretation Comments Calcium Lvl (test code = Calcium Lvl) 8.6 8.5-10.5 [place] 988842-03-27 10:12:00 Test Item Value Reference Range Interpretation Comments eGFR (test code = eGFR) 116 [place] 927472-03-27 10:12:00 Test Item Value Reference Range Interpretation Comments WBC (test code = WBC) 8.2 3.7-10.4 [place] 927472-03-27 10:12:00 Test Item Value Reference Range Interpretation Comments RBC (test code = RBC) 5.14 4.70-6.10 [place] [address]-03-27 10:12:00 Test Item Value Reference Range Interpretation Comments Hgb (test code = Hgb) 15.5 14.0-18.0 [place] [address]-03-27 10:12:00 Test Item Value Reference Range Interpretation Comments Hct (test code = Hct) 46.0 42.0-54.0 [place] 927472-03-27 10:12:00 Test Item Value Reference Range Interpretation Comments MCV (test code = MCV) 89.5 80.0-94.0 [place] [address]-03-27 10:12:00 Test Item Value Reference Range Interpretation Comments MCH (test code = MCH) 30.2 pg 27.0-31.0 [place] [address]-03-27 10:12:00 Test Item Value Reference Range Interpretation Comments MCHC (test code = MCHC) 33.8 32.0-36.0 [place] [address]-03-27 10:12:00 Test Item Value Reference Range Interpretation Comments RDW (test code = RDW) 15.3 11.5-14.5 [place] [address]-03-27 10:12:00 Test Item Value Reference Range Interpretation Comments Platelet (test code = Platelet) 358 133-450 [place] 927472-03-27 10:12:00 Test Item Value Reference Range Interpretation Comments MPV (test code = MPV) 8.3 7.4-10.4 [facility]2022-03-27 10:12:00 Test Item Value Reference Range Interpretation Comments Glucose Lvl (test code = Glucose Lvl) 115 70-99 [place] 988842-03-27 10:12:00 Test Item Value Reference Range Interpretation Comments BUN (test code = BUN) 18 7-22 [place] 988842-03-27 10:12:00 Test Item Value Reference Range Interpretation Comments Creatinine Lvl (test code = Creatinine 0.78 0.50-1.40 Lvl) [facility]2022-03-27 10:12:00 Test Item Value Reference Range Interpretation Comments Sodium Lvl (test code = Sodium Lvl) 138 135-145 [place] 988842-03-27 10:12:00 Test Item Value Reference Range Interpretation Comments Potassium Lvl (test code = Potassium 4.6 3.5-5.1 Lvl) [place] 988842-03-27 10:12:00 Test Item Value Reference Range Interpretation Comments Chloride Lvl (test code = Chloride Lvl) 111 95-109 [place] 988842-03-27 10:12:00 Test Item Value Reference Range Interpretation Comments CO2 (test code = CO2) 21 24-32 [place] 988842-03-27 10:12:00 Test Item Value Reference Range Interpretation Comments AGAP (test code = AGAP) 10.6 10.0-20.0 [place] [address]-03-27 10:12:00 Test Item Value Reference Range Interpretation Comments Calcium Lvl (test code = Calcium Lvl) 8.6 8.5-10.5 [place] 988842-03-27 10:12:00 Test Item Value Reference Range Interpretation Comments eGFR (test code = eGFR) 116 [place] 927472-03-27 10:12:00 Test Item Value Reference Range Interpretation Comments WBC (test code = WBC) 8.2 3.7-10.4 [place] [address]-03-27 10:12:00 Test Item Value Reference Range Interpretation Comments RBC (test code = RBC) 5.14 4.70-6.10 [place] [address]-03-27 10:12:00 Test Item Value Reference Range Interpretation Comments Hgb (test code = Hgb) 15.5 14.0-18.0 [place] [address]-03-27 10:12:00 Test Item Value Reference Range Interpretation Comments Hct (test code = Hct) 46.0 42.0-54.0 [place] [address]-03-27 10:12:00 Test Item Value Reference Range Interpretation Comments MCV (test code = MCV) 89.5 80.0-94.0 [place] [address]-03-27 10:12:00 Test Item Value Reference Range Interpretation Comments MCH (test code = MCH) 30.2 pg 27.0-31.0 [place] [address]-03-27 10:12:00 Test Item Value Reference Range Interpretation Comments MCHC (test code = MCHC) 33.8 32.0-36.0 [place] [address]-03-27 10:12:00 Test Item Value Reference Range Interpretation Comments RDW (test code = RDW) 15.3 11.5-14.5 [place] [address]-03-27 10:12:00 Test Item Value Reference Range Interpretation Comments Platelet (test code = Platelet) 358 133-450 [place] 927472-03-27 10:12:00 Test Item Value Reference Range Interpretation Comments MPV (test code = MPV) 8.3 7.4-10.4 [place] 988842-03-27 10:12:00 Test Item Value Reference Range Interpretation Comments Glucose Lvl (test code = Glucose Lvl) 115 70-99 [place] 988842-03-27 10:12:00 Test Item Value Reference Range Interpretation Comments BUN (test code = BUN) 18 7-22 [place] 988842-03-27 10:12:00 Test Item Value Reference Range Interpretation Comments Creatinine Lvl (test code = Creatinine 0.78 0.50-1.40 Lvl) [place] 988842-03-27 10:12:00 Test Item Value Reference Range Interpretation Comments Sodium Lvl (test code = Sodium Lvl) 138 135-145 [place] 988842-03-27 10:12:00 Test Item Value Reference Range Interpretation Comments Potassium Lvl (test code = Potassium 4.6 3.5-5.1 Lvl) [place] 988842-03-27 10:12:00 Test Item Value Reference Range Interpretation Comments Chloride Lvl (test code = Chloride Lvl) 111 95-109 [place] 988842-03-27 10:12:00 Test Item Value Reference Range Interpretation Comments CO2 (test code = CO2) 21 24-32 [place] 988842-03-27 10:12:00 Test Item Value Reference Range Interpretation Comments AGAP (test code = AGAP) 10.6 10.0-20.0 [place] 988842-03-27 10:12:00 Test Item Value Reference Range Interpretation Comments Calcium Lvl (test code = Calcium Lvl) 8.6 8.5-10.5 [facility]2022-03-27 10:12:00 Test Item Value Reference Range Interpretation Comments eGFR (test code = eGFR) 116 [place] 927472-03-27 10:12:00 Test Item Value Reference Range Interpretation Comments WBC (test code = WBC) 8.2 3.7-10.4 [facility]ImvrpgkSYHEGHZNPK9238-90-75 10:12:00 Test Item Value Reference Range Interpretation Comments RBC (test code = RBC) 5.14 4.70-6.10 [facility] PointeLdsbkphNRSWSYVZTD1677-13-98 10:12:00 Test Item Value Reference Range Interpretation Comments Hgb (test code = Hgb) 15.5 14.0-18.0 [place] 927472-03-27 10:12:00 Test Item Value Reference Range Interpretation Comments Hct (test code = Hct) 46.0 42.0-54.0 [place] 927472-03-27 10:12:00 Test Item Value Reference Range Interpretation Comments MCV (test code = MCV) 89.5 80.0-94.0 [facility] PointeNtyjelsVONHETBOWL8226-15-47 10:12:00 Test Item Value Reference Range Interpretation Comments MCH (test code = MCH) 30.2 pg 27.0-31.0 [place] 927472-03-27 10:12:00 Test Item Value Reference Range Interpretation Comments MCHC (test code = MCHC) 33.8 32.0-36.0 [place] 927472-03-27 10:12:00 Test Item Value Reference Range Interpretation Comments RDW (test code = RDW) 15.3 11.5-14.5 [facility]inteEwtrvebRXKFXDARSH5945-25-08 10:12:00 Test Item Value Reference Range Interpretation Comments Platelet (test code = Platelet) 358 133-450 [facility] PointeAlbqvxcFYLHIVWUWV3282-37-44 10:12:00 Test Item Value Reference Range Interpretation Comments MPV (test code = MPV) 8.3 7.4-10.4 [facility]2022-03-27 10:12:00 Test Item Value Reference Range Interpretation Comments Glucose Lvl (test code = Glucose Lvl) 115 70-99 [facility]2022-03-27 10:12:00 Test Item Value Reference Range Interpretation Comments BUN (test code = BUN) 18 7-22 [place] 988842-03-27 10:12:00 Test Item Value Reference Range Interpretation Comments Creatinine Lvl (test code = Creatinine 0.78 0.50-1.40 Lvl) [place] 988842-03-27 10:12:00 Test Item Value Reference Range Interpretation Comments Sodium Lvl (test code = Sodium Lvl) 138 135-145 [place] 988842-03-27 10:12:00 Test Item Value Reference Range Interpretation Comments Potassium Lvl (test code = Potassium 4.6 3.5-5.1 Lvl) [place] 988842-03-27 10:12:00 Test Item Value Reference Range Interpretation Comments Chloride Lvl (test code = Chloride Lvl) 111 95-109 [place] 988842-03-27 10:12:00 Test Item Value Reference Range Interpretation Comments CO2 (test code = CO2) 21 24-32 [place] 988842-03-27 10:12:00 Test Item Value Reference Range Interpretation Comments AGAP (test code = AGAP) 10.6 10.0-20.0 [place] 988842-03-27 10:12:00 Test Item Value Reference Range Interpretation Comments Calcium Lvl (test code = Calcium Lvl) 8.6 8.5-10.5 [place] 988842-03-27 10:12:00 Test Item Value Reference Range Interpretation Comments eGFR (test code = eGFR) 116 [place] 927472-03-27 10:12:00 Test Item Value Reference Range Interpretation Comments WBC (test code = WBC) 8.2 3.7-10.4 [place] [address]-03-27 10:12:00 Test Item Value Reference Range Interpretation Comments RBC (test code = RBC) 5.14 4.70-6.10 [place] [address]-03-27 10:12:00 Test Item Value Reference Range Interpretation Comments Hgb (test code = Hgb) 15.5 14.0-18.0 [place] [address]-03-27 10:12:00 Test Item Value Reference Range Interpretation Comments Hct (test code = Hct) 46.0 42.0-54.0 [place] 927472-03-27 10:12:00 Test Item Value Reference Range Interpretation Comments MCV (test code = MCV) 89.5 80.0-94.0 [place] [address]-03-27 10:12:00 Test Item Value Reference Range Interpretation Comments MCH (test code = MCH) 30.2 pg 27.0-31.0 [place] [address]-03-27 10:12:00 Test Item Value Reference Range Interpretation Comments MCHC (test code = MCHC) 33.8 32.0-36.0 [place] 927472-03-27 10:12:00 Test Item Value Reference Range Interpretation Comments RDW (test code = RDW) 15.3 11.5-14.5 [place] [address]-03-27 10:12:00 Test Item Value Reference Range Interpretation Comments Platelet (test code = Platelet) 358 776-450 [place] 927472-03-27 10:12:00 Test Item Value Reference Range Interpretation Comments MPV (test code = MPV) 8.3 7.4-10.4 [facility]2022-03-27 10:12:00 Test Item Value Reference Range Interpretation Comments Glucose Lvl (test code = Glucose Lvl) 115 70-99 [place] 988842-03-27 10:12:00 Test Item Value Reference Range Interpretation Comments BUN (test code = BUN) 18 7-22 [facility]2022-03-27 10:12:00 Test Item Value Reference Range Interpretation Comments Creatinine Lvl (test code = Creatinine 0.78 0.50-1.40 Lvl) [place] 988842-03-27 10:12:00 Test Item Value Reference Range Interpretation Comments Sodium Lvl (test code = Sodium Lvl) 138 135-145 [place] 988842-03-27 10:12:00 Test Item Value Reference Range Interpretation Comments Potassium Lvl (test code = Potassium 4.6 3.5-5.1 Lvl) [place] 988842-03-27 10:12:00 Test Item Value Reference Range Interpretation Comments Chloride Lvl (test code = Chloride Lvl) 111 95-109 [place] 988842-03-27 10:12:00 Test Item Value Reference Range Interpretation Comments CO2 (test code = CO2) 21 24-32 [place] 988842-03-27 10:12:00 Test Item Value Reference Range Interpretation Comments AGAP (test code = AGAP) 10.6 10.0-20.0 [facility]2022-03-27 10:12:00 Test Item Value Reference Range Interpretation Comments Calcium Lvl (test code = Calcium Lvl) 8.6 8.5-10.5 [facility]2022-03-27 10:12:00 Test Item Value Reference Range Interpretation Comments eGFR (test code = eGFR) 116 [facility]inteZjmzlbiTKHDYNEBPT0140-27-76 10:12:00 Test Item Value Reference Range Interpretation Comments WBC (test code = WBC) 8.2 3.7-10.4 [facility] PointeNrofefmDEUKNSTDPM3656-75-04 10:12:00 Test Item Value Reference Range Interpretation Comments RBC (test code = RBC) 5.14 4.70-6.10 [facility] PointeOhyhmoiALTDCQHTDJ1048-08-53 10:12:00 Test Item Value Reference Range Interpretation Comments Hgb (test code = Hgb) 15.5 14.0-18.0 [facility] PointeJnsccwhMMPDKUUGRP6052-05-52 10:12:00 Test Item Value Reference Range Interpretation Comments Hct (test code = Hct) 46.0 42.0-54.0 [facility] PointeNhsdseyPSMXPHOPMD9540-46-55 10:12:00 Test Item Value Reference Range Interpretation Comments MCV (test code = MCV) 89.5 80.0-94.0 [place] 927472-03-27 10:12:00 Test Item Value Reference Range Interpretation Comments MCH (test code = MCH) 30.2 pg 27.0-31.0 [place] 927472-03-27 10:12:00 Test Item Value Reference Range Interpretation Comments MCHC (test code = MCHC) 33.8 32.0-36.0 [place] 927472-03-27 10:12:00 Test Item Value Reference Range Interpretation Comments RDW (test code = RDW) 15.3 11.5-14.5 [facility] PointeMqlaortLSEOVWMKFL5470-57-16 10:12:00 Test Item Value Reference Range Interpretation Comments Platelet (test code = Platelet) 358 133-450 [facility] PointeNcqxfwyIXYUCFGQDC0594-02-63 10:12:00 Test Item Value Reference Range Interpretation Comments MPV (test code = MPV) 8.3 7.4-10.4 [place] 988842-03-27 06:53:00 Test Item Value Reference Range Interpretation Comments Glucose Lvl (test code = Glucose Lvl) 167 70-99 [place] 988842-03-27 06:53:00 Test Item Value Reference Range Interpretation Comments BUN (test code = BUN) 16 02-02 [place] 988842-03-27 06:53:00 Test Item Value Reference Range Interpretation Comments Creatinine Lvl (test code = Creatinine 0.99 0.50-1.40 Lvl) [place] 988842-03-27 06:53:00 Test Item Value Reference Range Interpretation Comments Sodium Lvl (test code = Sodium Lvl) 141 135-145 [place] 988842-03-27 06:53:00 Test Item Value Reference Range Interpretation Comments Potassium Lvl (test code = Potassium 4.5 3.5-5.1 Lvl) [place] 988842-03-27 06:53:00 Test Item Value Reference Range Interpretation Comments Chloride Lvl (test code = Chloride Lvl) 111 95-109 [facility]2022-03-27 06:53:00 Test Item Value Reference Range Interpretation Comments CO2 (test code = CO2) 22 24-32 [place] 988842-03-27 06:53:00 Test Item Value Reference Range Interpretation Comments AGAP (test code = AGAP) 12.5 10.0-20.0 [place] 988842-03-27 06:53:00 Test Item Value Reference Range Interpretation Comments Calcium Lvl (test code = Calcium Lvl) 8.6 8.5-10.5 [place] 988842-03-27 06:53:00 Test Item Value Reference Range Interpretation Comments eGFR (test code = eGFR) 98 [place] 988842-03-27 06:53:00 Test Item Value Reference Range Interpretation Comments Glucose Lvl (test code = Glucose Lvl) 167 70-99 [place] 988842-03-27 06:53:00 Test Item Value Reference Range Interpretation Comments BUN (test code = BUN) 16 7- [place] 988842-03-27 06:53:00 Test Item Value Reference Range Interpretation Comments Creatinine Lvl (test code = Creatinine 0.99 0.50-1.40 Lvl) [place] 988842-03-27 06:53:00 Test Item Value Reference Range Interpretation Comments Sodium Lvl (test code = Sodium Lvl) 141 135-145 [place] 988842-03-27 06:53:00 Test Item Value Reference Range Interpretation Comments Potassium Lvl (test code = Potassium 4.5 3.5-5.1 Lvl) [place] 988842-03-27 06:53:00 Test Item Value Reference Range Interpretation Comments Chloride Lvl (test code = Chloride Lvl) 111 95-109 [place] 988842-03-27 06:53:00 Test Item Value Reference Range Interpretation Comments CO2 (test code = CO2) 22 24-32 [place] 988842-03-27 06:53:00 Test Item Value Reference Range Interpretation Comments AGAP (test code = AGAP) 12.5 10.0-20.0 [place] 988842-03-27 06:53:00 Test Item Value Reference Range Interpretation Comments Calcium Lvl (test code = Calcium Lvl) 8.6 8.5-10.5 [place] 988842-03-27 06:53:00 Test Item Value Reference Range Interpretation Comments eGFR (test code = eGFR) 98 [place] 988842-03-27 06:53:00 Test Item Value Reference Range Interpretation Comments Glucose Lvl (test code = Glucose Lvl) 167 70-99 [place] 988842-03-27 06:53:00 Test Item Value Reference Range Interpretation Comments BUN (test code = BUN) 16 7-22 [place] 988842-03-27 06:53:00 Test Item Value Reference Range Interpretation Comments Creatinine Lvl (test code = Creatinine 0.99 0.50-1.40 Lvl) [place] 988842-03-27 06:53:00 Test Item Value Reference Range Interpretation Comments Sodium Lvl (test code = Sodium Lvl) 141 135-145 [place] 988842-03-27 06:53:00 Test Item Value Reference Range Interpretation Comments Potassium Lvl (test code = Potassium 4.5 3.5-5.1 Lvl) [place] 988842-03-27 06:53:00 Test Item Value Reference Range Interpretation Comments Chloride Lvl (test code = Chloride Lvl) 111 95-109 [place] 988842-03-27 06:53:00 Test Item Value Reference Range Interpretation Comments CO2 (test code = CO2) [place] 988842-03-27 06:53:00 Test Item Value Reference Range Interpretation Comments AGAP (test code = AGAP) 12.5 10.0-20.0 [place] 988842-03-27 06:53:00 Test Item Value Reference Range Interpretation Comments Calcium Lvl (test code = Calcium Lvl) 8.6 8.5-10.5 [place] 988842-03-27 06:53:00 Test Item Value Reference Range Interpretation Comments eGFR (test code = eGFR) 98 [place] 988842-03-27 06:53:00 Test Item Value Reference Range Interpretation Comments Glucose Lvl (test code = Glucose Lvl) 167 70-99 [place] 988842-03-27 06:53:00 Test Item Value Reference Range Interpretation Comments BUN (test code = BUN) 16 02-02 [place] 988842-03-27 06:53:00 Test Item Value Reference Range Interpretation Comments Creatinine Lvl (test code = Creatinine 0.99 0.50-1.40 Lvl) [facility]2022-03-27 06:53:00 Test Item Value Reference Range Interpretation Comments Sodium Lvl (test code = Sodium Lvl) 141 135-145 [place] 988842-03-27 06:53:00 Test Item Value Reference Range Interpretation Comments Potassium Lvl (test code = Potassium 4.5 3.5-5.1 Lvl) [place] 988842-03-27 06:53:00 Test Item Value Reference Range Interpretation Comments Chloride Lvl (test code = Chloride Lvl) 111 95-109 [place] 988842-03-27 06:53:00 Test Item Value Reference Range Interpretation Comments CO2 (test code = CO2) [place] 988842-03-27 06:53:00 Test Item Value Reference Range Interpretation Comments AGAP (test code = AGAP) 12.5 10.0-20.0 [place] 988842-03-27 06:53:00 Test Item Value Reference Range Interpretation Comments Calcium Lvl (test code = Calcium Lvl) 8.6 8.5-10.5 [place] 988842-03-27 06:53:00 Test Item Value Reference Range Interpretation Comments eGFR (test code = eGFR) 98 [place] 988842-03-27 06:53:00 Test Item Value Reference Range Interpretation Comments Glucose Lvl (test code = Glucose Lvl) 167 70-99 [place] 988842-03-27 06:53:00 Test Item Value Reference Range Interpretation Comments BUN (test code = BUN) 16 7-22 [place] 988842-03-27 06:53:00 Test Item Value Reference Range Interpretation Comments Creatinine Lvl (test code = Creatinine 0.99 0.50-1.40 Lvl) [place] 988842-03-27 06:53:00 Test Item Value Reference Range Interpretation Comments Sodium Lvl (test code = Sodium Lvl) 141 135-145 [place] 988842-03-27 06:53:00 Test Item Value Reference Range Interpretation Comments Potassium Lvl (test code = Potassium 4.5 3.5-5.1 Lvl) [place] 988842-03-27 06:53:00 Test Item Value Reference Range Interpretation Comments Chloride Lvl (test code = Chloride Lvl) 111 95-109 [place] 988842-03-27 06:53:00 Test Item Value Reference Range Interpretation Comments CO2 (test code = CO2) 22 24-32 [place] 988842-03-27 06:53:00 Test Item Value Reference Range Interpretation Comments AGAP (test code = AGAP) 12.5 10.0-20.0 [place] 988842-03-27 06:53:00 Test Item Value Reference Range Interpretation Comments Calcium Lvl (test code = Calcium Lvl) 8.6 8.5-10.5 [place] 988842-03-27 06:53:00 Test Item Value Reference Range Interpretation Comments eGFR (test code = eGFR) 98 [place] 988842-03-27 06:53:00 Test Item Value Reference Range Interpretation Comments Glucose Lvl (test code = Glucose Lvl) 167 70-99 [place] 988842-03-27 06:53:00 Test Item Value Reference Range Interpretation Comments BUN (test code = BUN) 16 - [place] 988842-03-27 06:53:00 Test Item Value Reference Range Interpretation Comments Creatinine Lvl (test code = Creatinine 0.99 0.50-1.40 Lvl) [place] 988842-03-27 06:53:00 Test Item Value Reference Range Interpretation Comments Sodium Lvl (test code = Sodium Lvl) 141 135-145 [place] 988842-03-27 06:53:00 Test Item Value Reference Range Interpretation Comments Potassium Lvl (test code = Potassium 4.5 3.5-5.1 Lvl) [place] 988842-03-27 06:53:00 Test Item Value Reference Range Interpretation Comments Chloride Lvl (test code = Chloride Lvl) 111 95-109 [place] 988842-03-27 06:53:00 Test Item Value Reference Range Interpretation Comments CO2 (test code = CO2) -32 [place] 988842-03-27 06:53:00 Test Item Value Reference Range Interpretation Comments AGAP (test code = AGAP) 12.5 10.0-20.0 [facility]2022-03-27 06:53:00 Test Item Value Reference Range Interpretation Comments Calcium Lvl (test code = Calcium Lvl) 8.6 8.5-10.5 [facility]2022-03-27 06:53:00 Test Item Value Reference Range Interpretation Comments eGFR (test code = eGFR) 98 [place] 988842-03-27 06:53:00 Test Item Value Reference Range Interpretation Comments Glucose Lvl (test code = Glucose Lvl) 167 70-99 [place] 988842-03-27 06:53:00 Test Item Value Reference Range Interpretation Comments BUN (test code = BUN) 16 - [facility]2022-03-27 06:53:00 Test Item Value Reference Range Interpretation Comments Creatinine Lvl (test code = Creatinine 0.99 0.50-1.40 Lvl) [facility]2022-03-27 06:53:00 Test Item Value Reference Range Interpretation Comments Sodium Lvl (test code = Sodium Lvl) 141 135-145 [place] 988842-03-27 06:53:00 Test Item Value Reference Range Interpretation Comments Potassium Lvl (test code = Potassium 4.5 3.5-5.1 Lvl) [place] 988842-03-27 06:53:00 Test Item Value Reference Range Interpretation Comments Chloride Lvl (test code = Chloride Lvl) 111 95-109 [place] 988842-03-27 06:53:00 Test Item Value Reference Range Interpretation Comments CO2 (test code = CO2) [place] 988842-03-27 06:53:00 Test Item Value Reference Range Interpretation Comments AGAP (test code = AGAP) 12.5 10.0-20.0 [place] 988842-03-27 06:53:00 Test Item Value Reference Range Interpretation Comments Calcium Lvl (test code = Calcium Lvl) 8.6 8.5-10.5 [facility]2022-03-27 06:53:00 Test Item Value Reference Range Interpretation Comments eGFR (test code = eGFR) 98 [place] 988842-03-27 06:53:00 Test Item Value Reference Range Interpretation Comments Glucose Lvl (test code = Glucose Lvl) 167 70-99 [place] 988842-03-27 06:53:00 Test Item Value Reference Range Interpretation Comments BUN (test code = BUN) 16 02-02 [facility]2022-03-27 06:53:00 Test Item Value Reference Range Interpretation Comments Creatinine Lvl (test code = Creatinine 0.99 0.50-1.40 Lvl) [facility]2022-03-27 06:53:00 Test Item Value Reference Range Interpretation Comments Sodium Lvl (test code = Sodium Lvl) 141 135-145 [place] 988842-03-27 06:53:00 Test Item Value Reference Range Interpretation Comments Potassium Lvl (test code = Potassium 4.5 3.5-5.1 Lvl) [place] 988842-03-27 06:53:00 Test Item Value Reference Range Interpretation Comments Chloride Lvl (test code = Chloride Lvl) 111 95-109 [place] 988842-03-27 06:53:00 Test Item Value Reference Range Interpretation Comments CO2 (test code = CO2) [place] 988842-03-27 06:53:00 Test Item Value Reference Range Interpretation Comments AGAP (test code = AGAP) 12.5 10.0-20.0 [facility] [id number] 06:53:00 Test Item Value Reference Range Interpretation Comments Calcium Lvl (test code = Calcium Lvl) 8.6 8.5-10.5 [facility] [id number] 06:53:00 Test Item Value Reference Range Interpretation Comments eGFR (test code = eGFR) 98 [facility]IN:SUSC:PT:ISOLATE:ORDQN:[id number] 22:59:00 Test Item Value Reference Range Interpretation Comments Culture: Urine (test >100,000 CFU/mL Proteus code = Culture: mirabilis >100,000 CFU/mL Urine) Providencia stuartii [facility]annNITROFURANTOIN:SUSC:PT:ISOLATE:ORDQN:[id number] 22:59:00 Test Item Value Reference Range Interpretation Comments Providencia stuartii Providencia stuartii (test code = Providencia stuartii) [facility]:SUSC:PT:ISOLATE:ORDQN:[id number] 22:59:00 Test Item Value Reference Range Interpretation Comments Proteus mirabilis (test Proteus mirabilis code = Proteus mirabilis) [facility]: [id number] 22:59:00 Test Item Value Reference Range Interpretation Comments Culture: Urine (test Holding For Better code = Culture: Urine) [facility]IN:SUSC:PT:ISOLATE:ORDQN:[id number] 22:59:00 Test Item Value Reference Range Interpretation Comments Culture: Urine (test >100,000 CFU/mL Proteus code = Culture: mirabilis >100,000 CFU/mL Urine) Providencia stuartii [facility]annNITROFURANTOIN:SUSC:PT:ISOLATE:ORDQN:[id number] 22:59:00 Test Item Value Reference Range Interpretation Comments Providencia stuartii Providencia stuartii (test code = Providencia stuartii) [facility]USC:PT:ISOLATE:ORDQN:[id number] 22:59:00 Test Item Value Reference Range Interpretation Comments Proteus mirabilis (test Proteus mirabilis code = Proteus mirabilis) [facility] HermannCulture: [id number] 22:59:00 Test Item Value Reference Range Interpretation Comments Culture: Urine (test Holding For Better code = Culture: Urine) Growth [facility]annNITROFURANTOIN:SUSC:PT:ISOLATE:ORDQN:[id number] 22:59:00 Test Item Value Reference Range Interpretation Comments Culture: Urine (test >100,000 CFU/mL Proteus code = Culture: mirabilis >100,000 CFU/mL Urine) Providencia stuartii [facility]annNITROFURANTOIN:SUSC:PT:ISOLATE:ORDQN:[id number] 22:59:00 Test Item Value Reference Range Interpretation Comments Providencia stuartii Providencia stuartii (test code = Providencia stuartii) [facility]:SUSC:PT:ISOLATE:ORDQN:[id number] 22:59:00 Test Item Value Reference Range Interpretation Comments Proteus mirabilis (test Proteus mirabilis code = Proteus mirabilis) [facility]: [id number] 22:59:00 Test Item Value Reference Range Interpretation Comments Culture: Urine (test Holding For Better code = Culture: Urine) [facility] HermannNITROFURANTOIN:SUSC:PT:ISOLATE:ORDQN:[id number] 22:59:00 Test Item Value Reference Range Interpretation Comments Culture: Urine (test >100,000 CFU/mL Proteus code = Culture: mirabilis >100,000 CFU/mL Urine) Providencia stuartii [facility] HermannNITROFURANTOIN:SUSC:PT:ISOLATE:ORDQN:[id number] 22:59:00 Test Item Value Reference Range Interpretation Comments Providencia stuartii Providencia stuartii (test code = Providencia stuartii) [facility]SUSC:PT:ISOLATE:ORDQN:[id number] 22:59:00 Test Item Value Reference Range Interpretation Comments Proteus mirabilis (test Proteus mirabilis code = Proteus mirabilis) [facility]ann[facility] [id number] 22:59:00 Test Item Value Reference Range Interpretation Comments Culture: Urine (test Holding For Better code = Culture: Urine) [facility]annN[facility]:SUSC:PT:ISOLATE:ORDQN:[id number] 22:59:00 Test Item Value Reference Range Interpretation Comments Culture: Urine (test >100,000 CFU/mL Proteus code = Culture: mirabilis >100,000 CFU/mL Urine) Providencia stuartii [facility]annN[facility]:SUSC:PT:ISOLATE:ORDQN:[id number] 22:59:00 Test Item Value Reference Range Interpretation Comments Providencia stuartii Providencia stuartii (test code = Providencia stuartii) [facility]SUSC:PT:ISOLATE:ORDQN:[id number] 22:59:00 Test Item Value Reference Range Interpretation Comments Proteus mirabilis (test Proteus mirabilis code = Proteus mirabilis) [facility]ann[facility]: [id number] 22:59:00 Test Item Value Reference Range Interpretation Comments Culture: Urine (test Holding For Better code = Culture: Urine) Growth [facility]USC:PT:ISOLATE:ORDQN:[id number] 22:59:00 Test Item Value Reference Range Interpretation Comments Culture: Urine (test >100,000 CFU/mL Proteus code = Culture: mirabilis >100,000 CFU/mL Urine) Providencia stuartii [facility]IN:SUSC:PT:ISOLATE:ORDQN:[id number] 22:59:00 Test Item Value Reference Range Interpretation Comments Providencia stuartii Providencia stuartii (test code = Providencia stuartii) [facility]SUSC:PT:ISOLATE:ORDQN:[id number] 22:59:00 Test Item Value Reference Range Interpretation Comments Proteus mirabilis (test Proteus mirabilis code = Proteus mirabilis) [facility]: [id number] 22:59:00 Test Item Value Reference Range Interpretation Comments Culture: Urine (test Holding For Better code = Culture: Urine) Growth [facility]:SUSC:PT:ISOLATE:ORDQN:[id number] 22:59:00 Test Item Value Reference Range Interpretation Comments Culture: Urine (test >100,000 CFU/mL Proteus code = Culture: mirabilis >100,000 CFU/mL Urine) Providencia stuartii [facility]:SUSC:PT:ISOLATE:ORDQN:[id number] 22:59:00 Test Item Value Reference Range Interpretation Comments Providencia stuartii Providencia stuartii (test code = Providencia stuartii) [facility]:SUSC:PT:ISOLATE:ORDQN:[id number] 22:59:00 Test Item Value Reference Range Interpretation Comments Proteus mirabilis (test Proteus mirabilis code = Proteus mirabilis) [facility]ann[facility]: [id number] 22:59:00 Test Item Value Reference Range Interpretation Comments Culture: Urine (test Holding For Better code = Culture: Urine) Growth [facility]:SUSC:PT:ISOLATE:ORDQN:[id number] 22:59:00 Test Item Value Reference Range Interpretation Comments Culture: Urine (test >100,000 CFU/mL Proteus code = Culture: mirabilis >100,000 CFU/mL Urine) Providencia stuartii [facility]IN:SUSC:PT:ISOLATE:ORDQN:[id number] 22:59:00 Test Item Value Reference Range Interpretation Comments Providencia stuartii Providencia stuartii (test code = Providencia stuartii) [facility]SUSC:PT:ISOLATE:ORDQN:[id number] 22:59:00 Test Item Value Reference Range Interpretation Comments Proteus mirabilis (test Proteus mirabilis code = Proteus mirabilis) [facility] [id number] 22:59:00 Test Item Value Reference Range Interpretation Comments Culture: Urine (test Holding For Better code = Culture: Urine) Growth [facility]2022-03-26 21:03:00 Test Item Value Reference Range Interpretation Comments Glucose Lvl (test code = Glucose Lvl) 126 70-99 [facility]2022-03-26 21:03:00 Test Item Value Reference Range Interpretation Comments BUN (test code = BUN) 16 7-22 [facility]2022-03-26 21:03:00 Test Item Value Reference Range Interpretation Comments Creatinine Lvl (test code = Creatinine 0.76 0.50-1.40 Lvl) [facility]2022-03-26 21:03:00 Test Item Value Reference Range Interpretation Comments Sodium Lvl (test code = Sodium Lvl) 140 135-145 [facility]2022-03-26 21:03:00 Test Item Value Reference Range Interpretation Comments Potassium Lvl (test code = Potassium 3.3 3.5-5.1 Lvl) [facility]2022-03-26 21:03:00 Test Item Value Reference Range Interpretation Comments Chloride Lvl (test code = Chloride Lvl) 111 95-109 [facility]2022-03-26 21:03:00 Test Item Value Reference Range Interpretation Comments CO2 (test code = CO2) 22 24-32 [facility]2022-03-26 21:03:00 Test Item Value Reference Range Interpretation Comments Calcium Lvl (test code = Calcium Lvl) 8.5 8.5-10.5 [facility]2022-03-26 21:03:00 Test Item Value Reference Range Interpretation Comments AGAP (test code = AGAP) 10.3 10.0-20.0 [facility]2022-03-26 21:03:00 Test Item Value Reference Range Interpretation Comments eGFR (test code = eGFR) 117 [facility]2022-03-26 21:03:00 Test Item Value Reference Range Interpretation Comments Lactic Acid Lvl (test code = Lactic 1.1 0.5-2.2 Acid Lvl) [place] 927472-03-26 21:03:00 Test Item Value Reference Range Interpretation Comments Segs (test code = Segs) 68.9 45.0-75.0 [place] 927472-03-26 21:03:00 Test Item Value Reference Range Interpretation Comments Lymphocytes (test code = Lymphocytes) 20.4 20.0-40.0 [place] 927472-03-26 21:03:00 Test Item Value Reference Range Interpretation Comments Monocytes (test code = Monocytes) 8.2 2.0-12.0 [place] [address]-03-26 21:03:00 Test Item Value Reference Range Interpretation Comments Eosinophils (test code = 2.2 See_Comment [A utomated message] The Eosinophils) system which ge nerated this result tra nsmitted reference range : <=4.0. The reference r boubacar was not used to int erpret this result as normal/abnormal . [place] [address]-03-26 21:03:00 Test Item Value Reference Range Interpretation Comments Basophils (test code = 0.3 See_Comment [Aut omated message] The Basophils) system which ge nerated this result tra nsmitted reference range : <=1.0. The reference r boubacar was not used to int erpret this result as normal/abnormal . [place] 927472-03-26 21:03:00 Test Item Value Reference Range Interpretation Comments Neutrophils # (test code = Neutrophils 5.5 1.5-8.1 #) [place] 927472-03-26 21:03:00 Test Item Value Reference Range Interpretation Comments Lymphocytes # (test code = Lymphocytes 1.6 1.0-5.5 #) [place] 927472-03-26 21:03:00 Test Item Value Reference Range Interpretation Comments Monocytes # (test code 0.7 See_Comment [Aut omated message] The = Monocytes #) system which generated this result tra nsmitted reference range : <=0.8. The reference r boubacar was not used to int erpret this result as normal/abnormal . [place] 927472-03-26 21:03:00 Test Item Value Reference Range Interpretation Comments Eosinophils # (test code 0.2 See_Comment [A utomated message] The = Eosinophils #) system whic h generated this result tra nsmitted reference range : <=0.5. The reference r boubacar was not used to int erpret this result as normal/abnormal . [id number] 21:03:00 Test Item Value Reference Range Interpretation Comments WBC (test code = WBC) 8.0 3.7-10.4 [facility] [id number] 21:03:00 Test Item Value Reference Range Interpretation Comments RBC (test code = RBC) 5.37 4.70-6.10 [facility] PointeXaksijcCNRQNYTQCY0924-14-74 21:03:00 Test Item Value Reference Range Interpretation Comments Hgb (test code = Hgb) 15.9 14.0-18.0 [facility] P[id number] 21:03:00 Test Item Value Reference Range Interpretation Comments Hct (test code = Hct) 47.3 42.0-54.0 [facility] [id number] 21:03:00 Test Item Value Reference Range Interpretation Comments MCV (test code = MCV) 88.1 80.0-94.0 [facility] PointeNetijglKFZFUHQWRG1633-52-71 21:03:00 Test Item Value Reference Range Interpretation Comments MCH (test code = MCH) 29.6 pg 27.0-31.0 [facility] [id number] 21:03:00 Test Item Value Reference Range Interpretation Comments MCHC (test code = MCHC) 33.6 32.0-36.0 [facility] [id number] 21:03:00 Test Item Value Reference Range Interpretation Comments RDW (test code = RDW) 15.3 11.5-14.5 [facility] [id number] 21:03:00 Test Item Value Reference Range Interpretation Comments Platelet (test code = Platelet) 370 133-450 [facility] Poin[id number] 21:03:00 Test Item Value Reference Range Interpretation Comments MPV (test code = MPV) 8.1 7.4-10.4 [facility]2022-03-26 21:03:00 Test Item Value Reference Range Interpretation Comments UA Comment 1 (test Suboptimal specimen code = UA Comment 1) received. Results may be inaccurate due to the age of the specimen. Interpret results with caution. [facility]2022-03-26 21:03:00 Test Item Value Reference Range Interpretation Comments UA Color (test code = Yellow *NA*(10/07/21 UA Color) 4:03 PM) [facility] [id number] 21:03:00 Test Item Value Reference Range Interpretation Comments UA Turbidity (test code Slight *ABN*(10/07/21 = UA Turbidity) 4:03 PM) [facility] [id number] 21:03:00 Test Item Value Reference Range Interpretation Comments UA Spec Grav (test code = UA Spec 1.015 1 Grav) [facility] [id number] 21:03:00 Test Item Value Reference Range Interpretation Comments UA pH (test code = UA pH) 5.0 1 5.0-8.0 [facility] [id number] 21:03:00 Test Item Value Reference Range Interpretation Comments UA Protein (test code = UA Negative mg/dL Protein) [facility] [id number] 21:03:00 Test Item Value Reference Range Interpretation Comments UA Glucose (test code = UA Negative mg/dL Glucose) [facility] [id number] 21:03:00 Test Item Value Reference Range Interpretation Comments UA Ketones (test code = UA Negative mg/dL Ketones) [facility] [id number] 21:03:00 Test Item Value Reference Range Interpretation Comments UA Bili (test code = Negative *NA*(10/07/21 UA Bili) 4:03 PM) [facility] [id number] 21:03:00 Test Item Value Reference Range Interpretation Comments UA Blood (test code = Negative (10/07/21 4:03 UA Blood) PM) [facility] [id number] 21:03:00 Test Item Value Reference Range Interpretation Comments UA Urobilinogen (test code = UA no gt 0.1-1.0 Urobilinogen) [facility] [id number] 21:03:00 Test Item Value Reference Range Interpretation Comments UA Nitrite (test code Negative (10/07/21 4:03 = UA Nitrite) PM) [facility] [id number] 21:03:00 Test Item Value Reference Range Interpretation Comments UA Leuk Est (test code Large *ABN*(10/07/21 = UA Leuk Est) 4:03 PM) [facility] [id number] 21:03:00 Test Item Value Reference Range Interpretation Comments UA WBC (test code = 64 See_Comment [Automa lester message] The UA WBC) system which ge nerated this result transmit lester reference range : <=5. The reference range was not used to interpr et this result as dany l/abnormal. [facility] [id number] 21:03:00 Test Item Value Reference Range Interpretation Comments UA RBC (test code = 2 See_Comment [Automa lester message] The UA RBC) system which ge nerated this result transmit lester reference range : <=2. The reference range was not used to interpr et this result as dany l/abnormal. [facility] [id number] 21:03:00 Test Item Value Reference Range Interpretation Comments UA Mucus (test code = UA Mucus) Few /LPF [facility] [id number] 21:03:00 Test Item Value Reference Range Interpretation Comments UA Sq Epi (test code = UA Sq Epi) None Seen [facility]2022-03-26 21:03:00 Test Item Value Reference Range Interpretation Comments Glucose Lvl (test code = Glucose Lvl) 126 70-99 [facility] [id number] 21:03:00 Test Item Value Reference Range Interpretation Comments BUN (test code = BUN) 16 7-22 [facility] [id number] 21:03:00 Test Item Value Reference Range Interpretation Comments Creatinine Lvl (test code = Creatinine 0.76 0.50-1.40 Lvl) [place] 988842-03-26 21:03:00 Test Item Value Reference Range Interpretation Comments Sodium Lvl (test code = Sodium Lvl) 140 135-145 [place] 988842-03-26 21:03:00 Test Item Value Reference Range Interpretation Comments Potassium Lvl (test code = Potassium 3.3 3.5-5.1 Lvl) [place] 988842-03-26 21:03:00 Test Item Value Reference Range Interpretation Comments Chloride Lvl (test code = Chloride Lvl) 111 95-109 [facility] [id number] 21:03:00 Test Item Value Reference Range Interpretation Comments CO2 (test code = CO2) 22 24-32 [place] 988842-03-26 21:03:00 Test Item Value Reference Range Interpretation Comments Calcium Lvl (test code = Calcium Lvl) 8.5 8.5-10.5 [place] 988842-03-26 21:03:00 Test Item Value Reference Range Interpretation Comments AGAP (test code = AGAP) 10.3 10.0-20.0 [place] 988842-03-26 21:03:00 Test Item Value Reference Range Interpretation Comments eGFR (test code = eGFR) 117 [place] 988842-03-26 21:03:00 Test Item Value Reference Range Interpretation Comments Lactic Acid Lvl (test code = Lactic 1.1 0.5-2.2 Acid Lvl) [place] 927472-03-26 21:03:00 Test Item Value Reference Range Interpretation Comments Segs (test code = Segs) 68.9 45.0-75.0 [place] 927472-03-26 21:03:00 Test Item Value Reference Range Interpretation Comments Lymphocytes (test code = Lymphocytes) 20.4 20.0-40.0 [place] [address]-03-26 21:03:00 Test Item Value Reference Range Interpretation Comments Monocytes (test code = Monocytes) 8.2 2.0-12.0 [place] 927472-03-26 21:03:00 Test Item Value Reference Range Interpretation Comments Eosinophils (test code = 2.2 See_Comment [A utomated message] The Eosinophils) system which ge nerated this result tra nsmitted reference range : <=4.0. The reference r boubacar was not used to int erpret this result as normal/abnormal . [place] 927472-03-26 21:03:00 Test Item Value Reference Range Interpretation Comments Basophils (test code = 0.3 See_Comment [Aut omated message] The Basophils) system which ge nerated this result tra nsmitted reference range : <=1.0. The reference r boubacar was not used to int erpret this result as normal/abnormal . [place] 927472-03-26 21:03:00 Test Item Value Reference Range Interpretation Comments Neutrophils # (test code = Neutrophils 5.5 1.5-8.1 #) [place] 927472-03-26 21:03:00 Test Item Value Reference Range Interpretation Comments Lymphocytes # (test code = Lymphocytes 1.6 1.0-5.5 #) [place] 927472-03-26 21:03:00 Test Item Value Reference Range Interpretation Comments Monocytes # (test code 0.7 See_Comment [Aut omated message] The = Monocytes #) system which generated this result tra nsmitted reference range : <=0.8. The reference r boubacar was not used to int erpret this result as normal/abnormal . [place] 927472-03-26 21:03:00 Test Item Value Reference Range Interpretation Comments Eosinophils # (test code 0.2 See_Comment [A utomated message] The = Eosinophils #) system whic h generated this result tra nsmitted reference range : <=0.5. The reference r boubacar was not used to int erpret this result as normal/abnormal . [id number] 21:03:00 Test Item Value Reference Range Interpretation Comments WBC (test code = WBC) 8.0 3.7-10.4 [place] 927472-03-26 21:03:00 Test Item Value Reference Range Interpretation Comments RBC (test code = RBC) 5.37 4.70-6.10 [place] 927472-03-26 21:03:00 Test Item Value Reference Range Interpretation Comments Hgb (test code = Hgb) 15.9 14.0-18.0 [place] 927472-03-26 21:03:00 Test Item Value Reference Range Interpretation Comments Hct (test code = Hct) 47.3 42.0-54.0 [place] [address]-03-26 21:03:00 Test Item Value Reference Range Interpretation Comments MCV (test code = MCV) 88.1 80.0-94.0 [place] [address]-03-26 21:03:00 Test Item Value Reference Range Interpretation Comments MCH (test code = MCH) 29.6 pg 27.0-31.0 [place] 927472-03-26 21:03:00 Test Item Value Reference Range Interpretation Comments MCHC (test code = MCHC) 33.6 32.0-36.0 [facility] [id number] 21:03:00 Test Item Value Reference Range Interpretation Comments RDW (test code = RDW) 15.3 11.5-14.5 [facility] PointeJsbsejlBCBSICQPCJ0856-10-58 21:03:00 Test Item Value Reference Range Interpretation Comments Platelet (test code = Platelet) 370 133-450 [facility] Poin[id number] 21:03:00 Test Item Value Reference Range Interpretation Comments MPV (test code = MPV) 8.1 7.4-10.4 [facility] [id number] 21:03:00 Test Item Value Reference Range Interpretation Comments UA Comment 1 (test Suboptimal specimen code = UA Comment 1) received. Results may be inaccurate due to the age of the specimen. Interpret results with caution. [facility] [id number] 21:03:00 Test Item Value Reference Range Interpretation Comments UA Color (test code = Yellow *NA*(10/07/21 UA Color) 4:03 PM) [facility] [id number] 21:03:00 Test Item Value Reference Range Interpretation Comments UA Turbidity (test code Slight *ABN*(10/07/21 = UA Turbidity) 4:03 PM) [facility] [id number] 21:03:00 Test Item Value Reference Range Interpretation Comments UA Spec Grav (test code = UA Spec 1.015 1 Grav) [facility] [id number] 21:03:00 Test Item Value Reference Range Interpretation Comments UA pH (test code = UA pH) 5.0 1 5.0-8.0 [facility] [id number] 21:03:00 Test Item Value Reference Range Interpretation Comments UA Protein (test code = UA Negative mg/dL Protein) [facility] [id number] 21:03:00 Test Item Value Reference Range Interpretation Comments UA Glucose (test code = UA Negative mg/dL Glucose) [facility] [id number] 21:03:00 Test Item Value Reference Range Interpretation Comments UA Ketones (test code = UA Negative mg/dL Ketones) [facility] [id number] 21:03:00 Test Item Value Reference Range Interpretation Comments UA Bili (test code = Negative *NA*(10/07/21 UA Bili) 4:03 PM) [facility] [id number] 21:03:00 Test Item Value Reference Range Interpretation Comments UA Blood (test code = Negative (10/07/21 4:03 UA Blood) PM) [facility] [id number] 21:03:00 Test Item Value Reference Range Interpretation Comments UA Urobilinogen (test code = UA no gt 0.1-1.0 Urobilinogen) [facility] [id number] 21:03:00 Test Item Value Reference Range Interpretation Comments UA Nitrite (test code Negative (10/07/21 4:03 = UA Nitrite) PM) [facility] [id number] 21:03:00 Test Item Value Reference Range Interpretation Comments UA Leuk Est (test code Large *ABN*(10/07/21 = UA Leuk Est) 4:03 PM) [facility] [id number] 21:03:00 Test Item Value Reference Range Interpretation Comments UA WBC (test code = 64 See_Comment [Automa lester message] The UA WBC) system which ge nerated this result transmit lester reference range : <=5. The reference range was not used to interpr et this result as dany l/abnormal. [facility] [id number] 21:03:00 Test Item Value Reference Range Interpretation Comments UA RBC (test code = 2 See_Comment [Automa lester message] The UA RBC) system which ge nerated this result transmit lester reference range : <=2. The reference range was not used to interpr et this result as dany l/abnormal. [facility] [id number] 21:03:00 Test Item Value Reference Range Interpretation Comments UA Mucus (test code = UA Mucus) Few /LPF [facility] [id number] 21:03:00 Test Item Value Reference Range Interpretation Comments UA Sq Epi (test code = UA Sq Epi) None [facility]en [facility]CHE[facility] [id number] 21:03:00 Test Item Value Reference Range Interpretation Comments Glucose Lvl (test code = Glucose Lvl) 126 70-99 [facility] [id number] 21:03:00 Test Item Value Reference Range Interpretation Comments BUN (test code = BUN) 16 7-22 [place] 988842-03-26 21:03:00 Test Item Value Reference Range Interpretation Comments Creatinine Lvl (test code = Creatinine 0.76 0.50-1.40 Lvl) [place] 988842-03-26 21:03:00 Test Item Value Reference Range Interpretation Comments Sodium Lvl (test code = Sodium Lvl) 140 135-145 [place] 988842-03-26 21:03:00 Test Item Value Reference Range Interpretation Comments Potassium Lvl (test code = Potassium 3.3 3.5-5.1 Lvl) [place] 988842-03-26 21:03:00 Test Item Value Reference Range Interpretation Comments Chloride Lvl (test code = Chloride Lvl) 111 95-109 [place] 988842-03-26 21:03:00 Test Item Value Reference Range Interpretation Comments CO2 (test code = CO2) 22 24-32 [place] 988842-03-26 21:03:00 Test Item Value Reference Range Interpretation Comments Calcium Lvl (test code = Calcium Lvl) 8.5 8.5-10.5 [place] 988842-03-26 21:03:00 Test Item Value Reference Range Interpretation Comments AGAP (test code = AGAP) 10.3 10.0-20.0 [facility]2022-03-26 21:03:00 Test Item Value Reference Range Interpretation Comments eGFR (test code = eGFR) 117 [place] 988842-03-26 21:03:00 Test Item Value Reference Range Interpretation Comments Lactic Acid Lvl (test code = Lactic 1.1 0.5-2.2 Acid Lvl) [place] 927472-03-26 21:03:00 Test Item Value Reference Range Interpretation Comments Segs (test code = Segs) 68.9 45.0-75.0 [place] 927472-03-26 21:03:00 Test Item Value Reference Range Interpretation Comments Lymphocytes (test code = Lymphocytes) 20.4 20.0-40.0 [place] 927472-03-26 21:03:00 Test Item Value Reference Range Interpretation Comments Monocytes (test code = Monocytes) 8.2 2.0-12.0 [place] 927472-03-26 21:03:00 Test Item Value Reference Range Interpretation Comments Eosinophils (test code = 2.2 See_Comment [A utomated message] The Eosinophils) system which ge nerated this result tra nsmitted reference range : <=4.0. The reference r boubacar was not used to int erpret this result as normal/abnormal . [place] 927472-03-26 21:03:00 Test Item Value Reference Range Interpretation Comments Basophils (test code = 0.3 See_Comment [Aut omated message] The Basophils) system which ge nerated this result tra nsmitted reference range : <=1.0. The reference r boubacar was not used to int erpret this result as normal/abnormal . [place] 927472-03-26 21:03:00 Test Item Value Reference Range Interpretation Comments Neutrophils # (test code = Neutrophils 5.5 1.5-8.1 #) [place] 927472-03-26 21:03:00 Test Item Value Reference Range Interpretation Comments Lymphocytes # (test code = Lymphocytes 1.6 1.0-5.5 #) [place] 927472-03-26 21:03:00 Test Item Value Reference Range Interpretation Comments Monocytes # (test code 0.7 See_Comment [Aut omated message] The = Monocytes #) system which generated this result tra nsmitted reference range : <=0.8. The reference r boubacar was not used to int erpret this result as normal/abnormal . [place] 927472-03-26 21:03:00 Test Item Value Reference Range Interpretation Comments Eosinophils # (test code 0.2 See_Comment [A utomated message] The = Eosinophils #) system whic h generated this result tra nsmitted reference range : <=0.5. The reference r boubacar was not used to int erpret this result as normal/abnormal . [facility]QrkhcmtNBASDDBUPJ7516-53-96 21:03:00 Test Item Value Reference Range Interpretation Comments WBC (test code = WBC) 8.0 3.7-10.4 [place] 927472-03-26 21:03:00 Test Item Value Reference Range Interpretation Comments RBC (test code = RBC) 5.37 4.70-6.10 [place] 927472-03-26 21:03:00 Test Item Value Reference Range Interpretation Comments Hgb (test code = Hgb) 15.9 14.0-18.0 [facility]inteIpmyxfvFOWYFXHNNA5454-29-24 21:03:00 Test Item Value Reference Range Interpretation Comments Hct (test code = Hct) 47.3 42.0-54.0 [facility] PointeMwpbvshJMAAYQGGJM1225-91-35 21:03:00 Test Item Value Reference Range Interpretation Comments MCV (test code = MCV) 88.1 80.0-94.0 [facility] PointeGdsksouMWPDTQDNXF3081-02-86 21:03:00 Test Item Value Reference Range Interpretation Comments MCH (test code = MCH) 29.6 pg 27.0-31.0 [facility] PointeLzudnhuAICRAREUUH6057-60-99 21:03:00 Test Item Value Reference Range Interpretation Comments MCHC (test code = MCHC) 33.6 32.0-36.0 [facility] PointePqfpesjFZLHTEQCXL9671-55-10 21:03:00 Test Item Value Reference Range Interpretation Comments RDW (test code = RDW) 15.3 11.5-14.5 [facility] PointeLpxwmigYWEBKOKIYE6414-82-97 21:03:00 Test Item Value Reference Range Interpretation Comments Platelet (test code = Platelet) 370 133-450 [facility] PointeLempqetCVFYGEUHWE9449-77-09 21:03:00 Test Item Value Reference Range Interpretation Comments MPV (test code = MPV) 8.1 7.4-10.4 [facility] [id number] 21:03:00 Test Item Value Reference Range Interpretation Comments UA Comment 1 (test Suboptimal specimen code = UA Comment 1) received. Results may be inaccurate due to the age of the specimen. Interpret results with caution. [facility] [id number] 21:03:00 Test Item Value Reference Range Interpretation Comments UA Color (test code = Yellow *NA*(10/07/21 UA Color) 4:03 PM) [facility] [id number] 21:03:00 Test Item Value Reference Range Interpretation Comments UA Turbidity (test code Slight *ABN*(10/07/21 = UA Turbidity) 4:03 PM) [facility] [id number] 21:03:00 Test Item Value Reference Range Interpretation Comments UA Spec Grav (test code = UA Spec 1.015 1 Grav) [facility] [id number] 21:03:00 Test Item Value Reference Range Interpretation Comments UA pH (test code = UA pH) 5.0 1 5.0-8.0 [facility] [id number] 21:03:00 Test Item Value Reference Range Interpretation Comments UA Protein (test code = UA Negative mg/dL Protein) [facility] [id number] 21:03:00 Test Item Value Reference Range Interpretation Comments UA Glucose (test code = UA Negative mg/dL Glucose) [facility] [id number] 21:03:00 Test Item Value Reference Range Interpretation Comments UA Ketones (test code = UA Negative mg/dL Ketones) [facility] [id number] 21:03:00 Test Item Value Reference Range Interpretation Comments UA Bili (test code = Negative *NA*(10/07/21 UA Bili) 4:03 PM) [facility] [id number] 21:03:00 Test Item Value Reference Range Interpretation Comments UA Blood (test code = Negative (10/07/21 4:03 UA Blood) PM) [facility] [id number] 21:03:00 Test Item Value Reference Range Interpretation Comments UA Urobilinogen (test code = UA no gt 0.1-1.0 Urobilinogen) [facility] [id number] 21:03:00 Test Item Value Reference Range Interpretation Comments UA Nitrite (test code Negative (10/07/21 4:03 = UA Nitrite) PM) [facility] [id number] 21:03:00 Test Item Value Reference Range Interpretation Comments UA Leuk Est (test code Large *ABN*(10/07/21 = UA Leuk Est) 4:03 PM) [facility] [id number] 21:03:00 Test Item Value Reference Range Interpretation Comments UA WBC (test code = 64 See_Comment [Automa lester message] The UA WBC) system which ge nerated this result transmit lester reference range : <=5. The reference range was not used to interpr et this result as dany l/abnormal. [facility] [id number] 21:03:00 Test Item Value Reference Range Interpretation Comments UA RBC (test code = 2 See_Comment [Automa lester message] The UA RBC) system which ge nerated this result transmit lester reference range : <=2. The reference range was not used to interpr et this result as dany l/abnormal. [facility] [id number] 21:03:00 Test Item Value Reference Range Interpretation Comments UA Mucus (test code = UA Mucus) Few /LPF [facility] [id number] 21:03:00 Test Item Value Reference Range Interpretation Comments UA Sq Epi (test code = UA Sq Epi) None Seen [facility]2022-03-26 21:03:00 Test Item Value Reference Range Interpretation Comments Glucose Lvl (test code = Glucose Lvl) 126 70-99 [facility]2022-03-26 21:03:00 Test Item Value Reference Range Interpretation Comments BUN (test code = BUN) 16 7-22 [place] 988842-03-26 21:03:00 Test Item Value Reference Range Interpretation Comments Creatinine Lvl (test code = Creatinine 0.76 0.50-1.40 Lvl) [facility]2022-03-26 21:03:00 Test Item Value Reference Range Interpretation Comments Sodium Lvl (test code = Sodium Lvl) 140 135-145 [facility]2022-03-26 21:03:00 Test Item Value Reference Range Interpretation Comments Potassium Lvl (test code = Potassium 3.3 3.5-5.1 Lvl) [facility]2022-03-26 21:03:00 Test Item Value Reference Range Interpretation Comments Chloride Lvl (test code = Chloride Lvl) 111 95-109 [facility]2022-03-26 21:03:00 Test Item Value Reference Range Interpretation Comments CO2 (test code = CO2) 22 24-32 [facility]2022-03-26 21:03:00 Test Item Value Reference Range Interpretation Comments Calcium Lvl (test code = Calcium Lvl) 8.5 8.5-10.5 [place] 988842-03-26 21:03:00 Test Item Value Reference Range Interpretation Comments AGAP (test code = AGAP) 10.3 10.0-20.0 [place] 988842-03-26 21:03:00 Test Item Value Reference Range Interpretation Comments eGFR (test code = eGFR) 117 [facility]2022-03-26 21:03:00 Test Item Value Reference Range Interpretation Comments Lactic Acid Lvl (test code = Lactic 1.1 0.5-2.2 Acid Lvl) [facility]in[id number] 21:03:00 Test Item Value Reference Range Interpretation Comments Segs (test code = Segs) 68.9 45.0-75.0 [facility] PointeEztufvpGAYYUTETBY7655-03-60 21:03:00 Test Item Value Reference Range Interpretation Comments Lymphocytes (test code = Lymphocytes) 20.4 20.0-40.0 [place] 927472-03-26 21:03:00 Test Item Value Reference Range Interpretation Comments Monocytes (test code = Monocytes) 8.2 2.0-12.0 [place] 927472-03-26 21:03:00 Test Item Value Reference Range Interpretation Comments Eosinophils (test code = 2.2 See_Comment [A utomated message] The Eosinophils) system which ge nerated this result tra nsmitted reference range : <=4.0. The reference r boubacar was not used to int erpret this result as normal/abnormal . [place] 927472-03-26 21:03:00 Test Item Value Reference Range Interpretation Comments Basophils (test code = 0.3 See_Comment [Aut omated message] The Basophils) system which ge nerated this result tra nsmitted reference range : <=1.0. The reference r boubacar was not used to int erpret this result as normal/abnormal . [facility]in[id number] 21:03:00 Test Item Value Reference Range Interpretation Comments Neutrophils # (test code = Neutrophils 5.5 1.5-8.1 #) [place] [address]-03-26 21:03:00 Test Item Value Reference Range Interpretation Comments Lymphocytes # (test code = Lymphocytes 1.6 1.0-5.5 #) [place] 927472-03-26 21:03:00 Test Item Value Reference Range Interpretation Comments Monocytes # (test code 0.7 See_Comment [Aut omated message] The = Monocytes #) system which generated this result tra nsmitted reference range : <=0.8. The reference r boubacar was not used to int erpret this result as normal/abnormal . [facility]inteLsxgdwuVDVKHBHJAP4094-71-80 21:03:00 Test Item Value Reference Range Interpretation Comments Eosinophils # (test code 0.2 See_Comment [A utomated message] The = Eosinophils #) system whic h generated this result tra nsmitted reference range : <=0.5. The reference r boubacar was not used to int erpret this result as normal/abnormal . [facility]inteEofvfbeMBRZGIOIZK3816-94-89 21:03:00 Test Item Value Reference Range Interpretation Comments WBC (test code = WBC) 8.0 3.7-10.4 [facility] PointeKrdodnrFATJBVHFOC2426-60-64 21:03:00 Test Item Value Reference Range Interpretation Comments RBC (test code = RBC) 5.37 4.70-6.10 [facility] PointeMemiyofWDCWJYXUIU0563-37-75 21:03:00 Test Item Value Reference Range Interpretation Comments Hgb (test code = Hgb) 15.9 14.0-18.0 [facility] PointeOahiepdMOCBFLBRXX4145-83-52 21:03:00 Test Item Value Reference Range Interpretation Comments Hct (test code = Hct) 47.3 42.0-54.0 [facility] PointeAglxfguCBRDKAURCA7059-00-58 21:03:00 Test Item Value Reference Range Interpretation Comments MCV (test code = MCV) 88.1 80.0-94.0 [facility] PointeMnjecycBLGSVCJWOX6234-95-09 21:03:00 Test Item Value Reference Range Interpretation Comments MCH (test code = MCH) 29.6 pg 27.0-31.0 [facility] PointeWevblmnZIVNWPZVEE5644-19-20 21:03:00 Test Item Value Reference Range Interpretation Comments MCHC (test code = MCHC) 33.6 32.0-36.0 [facility] [id number] 21:03:00 Test Item Value Reference Range Interpretation Comments RDW (test code = RDW) 15.3 11.5-14.5 [facility] PointeMxhjxhxPSNGLTONBE9681-94-61 21:03:00 Test Item Value Reference Range Interpretation Comments Platelet (test code = Platelet) 370 133-450 [facility] PointeFpoggsqSPSAVYDNHH2311-49-62 21:03:00 Test Item Value Reference Range Interpretation Comments MPV (test code = MPV) 8.1 7.4-10.4 [facility] [id number] 21:03:00 Test Item Value Reference Range Interpretation Comments UA Comment 1 (test Suboptimal specimen code = UA Comment 1) received. Results may be inaccurate due to the age of the specimen. Interpret results with caution. [facility] [id number] 21:03:00 Test Item Value Reference Range Interpretation Comments UA Color (test code = Yellow *NA*(10/07/21 UA Color) 4:03 PM) [facility] [id number] 21:03:00 Test Item Value Reference Range Interpretation Comments UA Turbidity (test code Slight *ABN*(10/07/21 = UA Turbidity) 4:03 PM) [facility] [id number] 21:03:00 Test Item Value Reference Range Interpretation Comments UA Spec Grav (test code = UA Spec 1.015 1 Grav) [facility] [id number] 21:03:00 Test Item Value Reference Range Interpretation Comments UA pH (test code = UA pH) 5.0 1 5.0-8.0 [facility] [id number] 21:03:00 Test Item Value Reference Range Interpretation Comments UA Protein (test code = UA Negative mg/dL Protein) [facility] [id number] 21:03:00 Test Item Value Reference Range Interpretation Comments UA Glucose (test code = UA Negative mg/dL Glucose) [facility] [id number] 21:03:00 Test Item Value Reference Range Interpretation Comments UA Ketones (test code = UA Negative mg/dL Ketones) [facility] [id number] 21:03:00 Test Item Value Reference Range Interpretation Comments UA Bili (test code = Negative *NA*(10/07/21 UA Bili) 4:03 PM) [facility] [id number] 21:03:00 Test Item Value Reference Range Interpretation Comments UA Blood (test code = Negative (10/07/21 4:03 UA Blood) PM) [facility] [id number] 21:03:00 Test Item Value Reference Range Interpretation Comments UA Urobilinogen (test code = UA no gt 0.1-1.0 Urobilinogen) [facility] [id number] 21:03:00 Test Item Value Reference Range Interpretation Comments UA Nitrite (test code Negative (10/07/21 4:03 = UA Nitrite) PM) [facility] [id number] 21:03:00 Test Item Value Reference Range Interpretation Comments UA Leuk Est (test code Large *ABN*(10/07/21 = UA Leuk Est) 4:03 PM) [facility] [id number] 21:03:00 Test Item Value Reference Range Interpretation Comments UA WBC (test code = 64 See_Comment [Automa lester message] The UA WBC) system which ge nerated this result transmit lester reference range : <=5. The reference range was not used to interpr et this result as dany l/abnormal. [facility] [id number] 21:03:00 Test Item Value Reference Range Interpretation Comments UA RBC (test code = 2 See_Comment [Automa lester message] The UA RBC) system which ge nerated this result transmit lester reference range : <=2. The reference range was not used to interpr et this result as dany l/abnormal. [facility] [id number] 21:03:00 Test Item Value Reference Range Interpretation Comments UA Mucus (test code = UA Mucus) Few /LPF [facility] [id number] 21:03:00 Test Item Value Reference Range Interpretation Comments UA Sq Epi (test code = UA Sq Epi) None Seen [facility]2022-03-26 21:03:00 Test Item Value Reference Range Interpretation Comments Glucose Lvl (test code = Glucose Lvl) 126 70-99 [facility]2022-03-26 21:03:00 Test Item Value Reference Range Interpretation Comments BUN (test code = BUN) 16 7-22 [place] 988842-03-26 21:03:00 Test Item Value Reference Range Interpretation Comments Creatinine Lvl (test code = Creatinine 0.76 0.50-1.40 Lvl) [place] 988842-03-26 21:03:00 Test Item Value Reference Range Interpretation Comments Sodium Lvl (test code = Sodium Lvl) 140 135-145 [facility]2022-03-26 21:03:00 Test Item Value Reference Range Interpretation Comments Potassium Lvl (test code = Potassium 3.3 3.5-5.1 Lvl) [place] 988842-03-26 21:03:00 Test Item Value Reference Range Interpretation Comments Chloride Lvl (test code = Chloride Lvl) 111 95-109 [place] 988842-03-26 21:03:00 Test Item Value Reference Range Interpretation Comments CO2 (test code = CO2) 22 24-32 [place] 988842-03-26 21:03:00 Test Item Value Reference Range Interpretation Comments Calcium Lvl (test code = Calcium Lvl) 8.5 8.5-10.5 [place] 988842-03-26 21:03:00 Test Item Value Reference Range Interpretation Comments AGAP (test code = AGAP) 10.3 10.0-20.0 [place] 988842-03-26 21:03:00 Test Item Value Reference Range Interpretation Comments eGFR (test code = eGFR) 117 [place] 988842-03-26 21:03:00 Test Item Value Reference Range Interpretation Comments Lactic Acid Lvl (test code = Lactic 1.1 0.5-2.2 Acid Lvl) [place] 927472-03-26 21:03:00 Test Item Value Reference Range Interpretation Comments Segs (test code = Segs) 68.9 45.0-75.0 [place] 927472-03-26 21:03:00 Test Item Value Reference Range Interpretation Comments Lymphocytes (test code = Lymphocytes) 20.4 20.0-40.0 [place] 927472-03-26 21:03:00 Test Item Value Reference Range Interpretation Comments Monocytes (test code = Monocytes) 8.2 2.0-12.0 [place] [address]-03-26 21:03:00 Test Item Value Reference Range Interpretation Comments Eosinophils (test code = 2.2 See_Comment [A utomated message] The Eosinophils) system which ge nerated this result tra nsmitted reference range : <=4.0. The reference r boubacar was not used to int erpret this result as normal/abnormal . [place] 927472-03-26 21:03:00 Test Item Value Reference Range Interpretation Comments Basophils (test code = 0.3 See_Comment [Aut omated message] The Basophils) system which ge nerated this result tra nsmitted reference range : <=1.0. The reference r boubacar was not used to int erpret this result as normal/abnormal . [place] 927472-03-26 21:03:00 Test Item Value Reference Range Interpretation Comments Neutrophils # (test code = Neutrophils 5.5 1.5-8.1 #) [place] 927472-03-26 21:03:00 Test Item Value Reference Range Interpretation Comments Lymphocytes # (test code = Lymphocytes 1.6 1.0-5.5 #) [place] 927472-03-26 21:03:00 Test Item Value Reference Range Interpretation Comments Monocytes # (test code 0.7 See_Comment [Aut omated message] The = Monocytes #) system which generated this result tra nsmitted reference range : <=0.8. The reference r boubacar was not used to int erpret this result as normal/abnormal . [place] 927472-03-26 21:03:00 Test Item Value Reference Range Interpretation Comments Eosinophils # (test code 0.2 See_Comment [A utomated message] The = Eosinophils #) system whic h generated this result tra nsmitted reference range : <=0.5. The reference r boubacar was not used to int erpret this result as normal/abnormal . [facility]inteVcqbswnEOOUOPRRKI3800-75-76 21:03:00 Test Item Value Reference Range Interpretation Comments WBC (test code = WBC) 8.0 3.7-10.4 [place] 927472-03-26 21:03:00 Test Item Value Reference Range Interpretation Comments RBC (test code = RBC) 5.37 4.70-6.10 [place] [address]-03-26 21:03:00 Test Item Value Reference Range Interpretation Comments Hgb (test code = Hgb) 15.9 14.0-18.0 [place] [address]-03-26 21:03:00 Test Item Value Reference Range Interpretation Comments Hct (test code = Hct) 47.3 42.0-54.0 [place] [address]-03-26 21:03:00 Test Item Value Reference Range Interpretation Comments MCV (test code = MCV) 88.1 80.0-94.0 [place] 927472-03-26 21:03:00 Test Item Value Reference Range Interpretation Comments MCH (test code = MCH) 29.6 pg 27.0-31.0 [facility]ZXIBM9862-87-33 21:03:00 Test Item Value Reference Range Interpretation Comments MCHC (test code = MCHC) 33.6 32.0-36.0 [facility]bMACXNYFKQA3057-13-80 21:03:00 Test Item Value Reference Range Interpretation Comments RDW (test code = RDW) 15.3 11.5-14.5 [facility] HospitalFptxsocIPTUDXIFRW9957-36-34 21:03:00 Test Item Value Reference Range Interpretation Comments Platelet (test code = Platelet) 370 133-450 [facility]inteOsqeojhZAJSNDXRHD8965-45-47 21:03:00 Test Item Value Reference Range Interpretation Comments MPV (test code = MPV) 8.1 7.4-10.4 [facility] [id number] 21:03:00 Test Item Value Reference Range Interpretation Comments UA Comment 1 (test Suboptimal specimen code = UA Comment 1) received. Results may be inaccurate due to the age of the specimen. Interpret results with caution. [facility] [id number] 21:03:00 Test Item Value Reference Range Interpretation Comments UA Color (test code = Yellow *NA*(10/07/21 UA Color) 4:03 PM) [facility] [id number] 21:03:00 Test Item Value Reference Range Interpretation Comments UA Turbidity (test code Slight *ABN*(10/07/21 = UA Turbidity) 4:03 PM) [facility] [id number] 21:03:00 Test Item Value Reference Range Interpretation Comments UA Spec Grav (test code = UA Spec 1.015 1 Grav) [facility] [id number] 21:03:00 Test Item Value Reference Range Interpretation Comments UA pH (test code = UA pH) 5.0 1 5.0-8.0 [facility] AND [id number] 21:03:00 Test Item Value Reference Range Interpretation Comments UA Protein (test code = UA Negative mg/dL Protein) [facility] [id number] 21:03:00 Test Item Value Reference Range Interpretation Comments UA Glucose (test code = UA Negative mg/dL Glucose) [facility] [id number] 21:03:00 Test Item Value Reference Range Interpretation Comments UA Ketones (test code = UA Negative mg/dL Ketones) [facility] [id number] 21:03:00 Test Item Value Reference Range Interpretation Comments UA Bili (test code = Negative *NA*(10/07/21 UA Bili) 4:03 PM) [facility] [id number] 21:03:00 Test Item Value Reference Range Interpretation Comments UA Blood (test code = Negative (10/07/21 4:03 UA Blood) PM) [facility] [id number] 21:03:00 Test Item Value Reference Range Interpretation Comments UA Urobilinogen (test code = UA no gt 0.1-1.0 Urobilinogen) [facility] [id number] 21:03:00 Test Item Value Reference Range Interpretation Comments UA Nitrite (test code Negative (10/07/21 4:03 = UA Nitrite) PM) [facility] [id number] 21:03:00 Test Item Value Reference Range Interpretation Comments UA Leuk Est (test code Large *ABN*(10/07/21 = UA Leuk Est) 4:03 PM) [facility] [id number] 21:03:00 Test Item Value Reference Range Interpretation Comments UA WBC (test code = 64 See_Comment [Automa lester message] The UA WBC) system which ge nerated this result transmit lester reference range : <=5. The reference range was not used to interpr et this result as dany l/abnormal. [facility] [id number] 21:03:00 Test Item Value Reference Range Interpretation Comments UA RBC (test code = 2 See_Comment [Automa lester message] The UA RBC) system which ge nerated this result transmit lester reference range : <=2. The reference range was not used to interpr et this result as dany l/abnormal. [facility] [id number] 21:03:00 Test Item Value Reference Range Interpretation Comments UA Mucus (test code = UA Mucus) Few /LPF [facility] [id number] 21:03:00 Test Item Value Reference Range Interpretation Comments UA Sq Epi (test code = UA Sq Epi) None Seen [place] 988842-03-26 21:03:00 Test Item Value Reference Range Interpretation Comments Glucose Lvl (test code = Glucose Lvl) 126 70-99 [place] 988842-03-26 21:03:00 Test Item Value Reference Range Interpretation Comments BUN (test code = BUN) 16 7-22 [place] 988842-03-26 21:03:00 Test Item Value Reference Range Interpretation Comments Creatinine Lvl (test code = Creatinine 0.76 0.50-1.40 Lvl) [place] 988842-03-26 21:03:00 Test Item Value Reference Range Interpretation Comments Sodium Lvl (test code = Sodium Lvl) 140 135-145 [place] 988842-03-26 21:03:00 Test Item Value Reference Range Interpretation Comments Potassium Lvl (test code = Potassium 3.3 3.5-5.1 Lvl) [place] 988842-03-26 21:03:00 Test Item Value Reference Range Interpretation Comments Chloride Lvl (test code = Chloride Lvl) 111 95-109 [place] 988842-03-26 21:03:00 Test Item Value Reference Range Interpretation Comments CO2 (test code = CO2) 22 24-32 [place] 988842-03-26 21:03:00 Test Item Value Reference Range Interpretation Comments Calcium Lvl (test code = Calcium Lvl) 8.5 8.5-10.5 [place] 988842-03-26 21:03:00 Test Item Value Reference Range Interpretation Comments AGAP (test code = AGAP) 10.3 10.0-20.0 [place] 988842-03-26 21:03:00 Test Item Value Reference Range Interpretation Comments eGFR (test code = eGFR) 117 [place] 988842-03-26 21:03:00 Test Item Value Reference Range Interpretation Comments Lactic Acid Lvl (test code = Lactic 1.1 0.5-2.2 Acid Lvl) [place] 927472-03-26 21:03:00 Test Item Value Reference Range Interpretation Comments Segs (test code = Segs) 68.9 45.0-75.0 [place] 927472-03-26 21:03:00 Test Item Value Reference Range Interpretation Comments Lymphocytes (test code = Lymphocytes) 20.4 20.0-40.0 [place] 927472-03-26 21:03:00 Test Item Value Reference Range Interpretation Comments Monocytes (test code = Monocytes) 8.2 2.0-12.0 [place] 927472-03-26 21:03:00 Test Item Value Reference Range Interpretation Comments Eosinophils (test code = 2.2 See_Comment [A utomated message] The Eosinophils) system which ge nerated this result tra nsmitted reference range : <=4.0. The reference r boubacar was not used to int erpret this result as normal/abnormal . [facility]inteFmlledxFBVEBRBXXC0402-19-11 21:03:00 Test Item Value Reference Range Interpretation Comments Basophils (test code = 0.3 See_Comment [Aut omated message] The Basophils) system which ge nerated this result tra nsmitted reference range : <=1.0. The reference r boubacar was not used to int erpret this result as normal/abnormal . [place] 927472-03-26 21:03:00 Test Item Value Reference Range Interpretation Comments Neutrophils # (test code = Neutrophils 5.5 1.5-8.1 #) [facility]inteEezfvcaIVFBAUJKNL3013-41-43 21:03:00 Test Item Value Reference Range Interpretation Comments Lymphocytes # (test code = Lymphocytes 1.6 1.0-5.5 #) [place] 927472-03-26 21:03:00 Test Item Value Reference Range Interpretation Comments Monocytes # (test code 0.7 See_Comment [Aut omated message] The = Monocytes #) system which generated this result tra nsmitted reference range : <=0.8. The reference r boubacar was not used to int erpret this result as normal/abnormal . [facility] PointeHbpnfssANKATEWSGO6366-37-15 21:03:00 Test Item Value Reference Range Interpretation Comments Eosinophils # (test code 0.2 See_Comment [A utomated message] The = Eosinophils #) system whic h generated this result tra nsmitted reference range : <=0.5. The reference r boubacar was not used to int erpret this result as normal/abnormal . [facility] PointeQllbshgFTJFMJVMCJ1549-62-96 21:03:00 Test Item Value Reference Range Interpretation Comments WBC (test code = WBC) 8.0 3.7-10.4 [facility] PointePsdljlpIPLBKITXNM6611-54-24 21:03:00 Test Item Value Reference Range Interpretation Comments RBC (test code = RBC) 5.37 4.70-6.10 [facility] PointePixuacpHAVYXIRTPJ1656-36-33 21:03:00 Test Item Value Reference Range Interpretation Comments Hgb (test code = Hgb) 15.9 14.0-18.0 [facility] PointeCwcuiqoILINVDCWFN5660-62-41 21:03:00 Test Item Value Reference Range Interpretation Comments Hct (test code = Hct) 47.3 42.0-54.0 [facility] PointeSpwieayDIVIQXARVP7695-62-81 21:03:00 Test Item Value Reference Range Interpretation Comments MCV (test code = MCV) 88.1 80.0-94.0 [facility] PointeKqqbrtxTCCXJCVIMT0066-47-83 21:03:00 Test Item Value Reference Range Interpretation Comments MCH (test code = MCH) 29.6 pg 27.0-31.0 [facility] PointeByjcfotXJUXIOJDDA4425-25-71 21:03:00 Test Item Value Reference Range Interpretation Comments MCHC (test code = MCHC) 33.6 32.0-36.0 [facility] PointeUbbgmfmYYCOCDNXYB4345-53-70 21:03:00 Test Item Value Reference Range Interpretation Comments RDW (test code = RDW) 15.3 11.5-14.5 [facility] PointeCqpzshxHSGMWYZDAM8845-44-84 21:03:00 Test Item Value Reference Range Interpretation Comments Platelet (test code = Platelet) 370 133-450 [facility] PointeHdgjupqTUCCTXWSIT8650-52-10 21:03:00 Test Item Value Reference Range Interpretation Comments MPV (test code = MPV) 8.1 7.4-10.4 [facility]2022-03-26 21:03:00 Test Item Value Reference Range Interpretation Comments UA Comment 1 (test Suboptimal specimen code = UA Comment 1) received. Results may be inaccurate due to the age of the specimen. Interpret results with caution. [facility]2022-03-26 21:03:00 Test Item Value Reference Range Interpretation Comments UA Color (test code = Yellow *NA*(10/07/21 UA Color) 4:03 PM) [facility]2022-03-26 21:03:00 Test Item Value Reference Range Interpretation Comments UA Turbidity (test code Slight *ABN*(10/07/21 = UA Turbidity) 4:03 PM) [facility] [id number] 21:03:00 Test Item Value Reference Range Interpretation Comments UA Spec Grav (test code = UA Spec 1.015 1 Grav) [facility] [id number] 21:03:00 Test Item Value Reference Range Interpretation Comments UA pH (test code = UA pH) 5.0 1 5.0-8.0 [facility] [id number] 21:03:00 Test Item Value Reference Range Interpretation Comments UA Protein (test code = UA Negative mg/dL Protein) [facility] [id number] 21:03:00 Test Item Value Reference Range Interpretation Comments UA Glucose (test code = UA Negative mg/dL Glucose) [facility] [id number] 21:03:00 Test Item Value Reference Range Interpretation Comments UA Ketones (test code = UA Negative mg/dL Ketones) [facility] [id number] 21:03:00 Test Item Value Reference Range Interpretation Comments UA Bili (test code = Negative *NA*(10/07/21 UA Bili) 4:03 PM) [facility] [id number] 21:03:00 Test Item Value Reference Range Interpretation Comments UA Blood (test code = Negative (10/07/21 4:03 UA Blood) PM) [facility] [id number] 21:03:00 Test Item Value Reference Range Interpretation Comments UA Urobilinogen (test code = UA no gt 0.1-1.0 Urobilinogen) [facility] [id number] 21:03:00 Test Item Value Reference Range Interpretation Comments UA Nitrite (test code Negative (10/07/21 4:03 = UA Nitrite) PM) [facility] [id number] 21:03:00 Test Item Value Reference Range Interpretation Comments UA Leuk Est (test code Large *ABN*(10/07/21 = UA Leuk Est) 4:03 PM) [facility] [id number] 21:03:00 Test Item Value Reference Range Interpretation Comments UA WBC (test code = 64 See_Comment [Automa lester message] The UA WBC) system which ge nerated this result transmit lester reference range : <=5. The reference range was not used to interpr et this result as dany l/abnormal. [facility] [id number] 21:03:00 Test Item Value Reference Range Interpretation Comments UA RBC (test code = 2 See_Comment [Automa lester message] The UA RBC) system which ge nerated this result transmit lester reference range : <=2. The reference range was not used to interpr et this result as dany l/abnormal. [facility] [id number] 21:03:00 Test Item Value Reference Range Interpretation Comments UA Mucus (test code = UA Mucus) Few /LPF [facility] [id number] 21:03:00 Test Item Value Reference Range Interpretation Comments UA Sq Epi (test code = UA Sq Epi) None Seen [facility]2022-03-26 21:03:00 Test Item Value Reference Range Interpretation Comments Glucose Lvl (test code = Glucose Lvl) 126 70-99 [facility]2022-03-26 21:03:00 Test Item Value Reference Range Interpretation Comments BUN (test code = BUN) 16 7-22 [place] 988842-03-26 21:03:00 Test Item Value Reference Range Interpretation Comments Creatinine Lvl (test code = Creatinine 0.76 0.50-1.40 Lvl) [place] 988842-03-26 21:03:00 Test Item Value Reference Range Interpretation Comments Sodium Lvl (test code = Sodium Lvl) 140 135-145 [place] 988842-03-26 21:03:00 Test Item Value Reference Range Interpretation Comments Potassium Lvl (test code = Potassium 3.3 3.5-5.1 Lvl) [facility]2022-03-26 21:03:00 Test Item Value Reference Range Interpretation Comments Chloride Lvl (test code = Chloride Lvl) 111 95-109 [facility]2022-03-26 21:03:00 Test Item Value Reference Range Interpretation Comments CO2 (test code = CO2) 22 24-32 [facility]2022-03-26 21:03:00 Test Item Value Reference Range Interpretation Comments Calcium Lvl (test code = Calcium Lvl) 8.5 8.5-10.5 [place] 988842-03-26 21:03:00 Test Item Value Reference Range Interpretation Comments AGAP (test code = AGAP) 10.3 10.0-20.0 [place] 988842-03-26 21:03:00 Test Item Value Reference Range Interpretation Comments eGFR (test code = eGFR) 117 [place] 988842-03-26 21:03:00 Test Item Value Reference Range Interpretation Comments Lactic Acid Lvl (test code = Lactic 1.1 0.5-2.2 Acid Lvl) [place] [address]-03-26 21:03:00 Test Item Value Reference Range Interpretation Comments Segs (test code = Segs) 68.9 45.0-75.0 [place] [address]-03-26 21:03:00 Test Item Value Reference Range Interpretation Comments Lymphocytes (test code = Lymphocytes) 20.4 20.0-40.0 [place] 927472-03-26 21:03:00 Test Item Value Reference Range Interpretation Comments Monocytes (test code = Monocytes) 8.2 2.0-12.0 [place] [address]-03-26 21:03:00 Test Item Value Reference Range Interpretation Comments Eosinophils (test code = 2.2 See_Comment [A utomated message] The Eosinophils) system which ge nerated this result tra nsmitted reference range : <=4.0. The reference r boubacar was not used to int erpret this result as normal/abnormal . [place] 927472-03-26 21:03:00 Test Item Value Reference Range Interpretation Comments Basophils (test code = 0.3 See_Comment [Aut omated message] The Basophils) system which ge nerated this result tra nsmitted reference range : <=1.0. The reference r boubacar was not used to int erpret this result as normal/abnormal . [place] 927472-03-26 21:03:00 Test Item Value Reference Range Interpretation Comments Neutrophils # (test code = Neutrophils 5.5 1.5-8.1 #) [place] 927472-03-26 21:03:00 Test Item Value Reference Range Interpretation Comments Lymphocytes # (test code = Lymphocytes 1.6 1.0-5.5 #) [address]03-26 21:03:00 Test Item Value Reference Range Interpretation Comments Monocytes # (test code 0.7 See_Comment [Aut omated message] The = Monocytes #) system which generated this result tra nsmitted reference range : <=0.8. The reference r boubacar was not used to int erpret this result as normal/abnormal . [facility]inteKvuzlvjHPWDYRQGTS5770-06-87 21:03:00 Test Item Value Reference Range Interpretation Comments Eosinophils # (test code 0.2 See_Comment [A utomated message] The = Eosinophils #) system whic h generated this result tra nsmitted reference range : <=0.5. The reference r boubacar was not used to int erpret this result as normal/abnormal . [facility] PointeDnfycjaGXNGQSLZZO5245-43-66 21:03:00 Test Item Value Reference Range Interpretation Comments WBC (test code = WBC) 8.0 3.7-10.4 [place] 927472-03-26 21:03:00 Test Item Value Reference Range Interpretation Comments RBC (test code = RBC) 5.37 4.70-6.10 [place] 927472-03-26 21:03:00 Test Item Value Reference Range Interpretation Comments Hgb (test code = Hgb) 15.9 14.0-18.0 [place] 927472-03-26 21:03:00 Test Item Value Reference Range Interpretation Comments Hct (test code = Hct) 47.3 42.0-54.0 [place] 927472-03-26 21:03:00 Test Item Value Reference Range Interpretation Comments MCV (test code = MCV) 88.1 80.0-94.0 [facility] PointeYrkjaqzYBHBZOTOCN8838-01-03 21:03:00 Test Item Value Reference Range Interpretation Comments MCH (test code = MCH) 29.6 pg 27.0-31.0 [place] 927472-03-26 21:03:00 Test Item Value Reference Range Interpretation Comments MCHC (test code = MCHC) 33.6 32.0-36.0 [place] 927472-03-26 21:03:00 Test Item Value Reference Range Interpretation Comments RDW (test code = RDW) 15.3 11.5-14.5 [facility] [id number] 21:03:00 Test Item Value Reference Range Interpretation Comments Platelet (test code = Platelet) 370 133-450 [facility]OFVRDBMZCX9579-31-96 21:03:00 Test Item Value Reference Range Interpretation Comments MPV (test code = MPV) 8.1 7.4-10.4 [facility] [id number] 21:03:00 Test Item Value Reference Range Interpretation Comments UA Comment 1 (test Suboptimal specimen code = UA Comment 1) received. Results may be inaccurate due to the age of the specimen. Interpret results with caution. [facility] [id number] 21:03:00 Test Item Value Reference Range Interpretation Comments UA Color (test code = Yellow *NA*(10/07/21 UA Color) 4:03 PM) [facility] [id number] 21:03:00 Test Item Value Reference Range Interpretation Comments UA Turbidity (test code Slight *ABN*(10/07/21 = UA Turbidity) 4:03 PM) [facility] [id number] 21:03:00 Test Item Value Reference Range Interpretation Comments UA Spec Grav (test code = UA Spec 1.015 1 Grav) [facility] [id number] 21:03:00 Test Item Value Reference Range Interpretation Comments UA pH (test code = UA pH) 5.0 1 5.0-8.0 [facility] [id number] 21:03:00 Test Item Value Reference Range Interpretation Comments UA Protein (test code = UA Negative mg/dL Protein) [facility] [id number] 21:03:00 Test Item Value Reference Range Interpretation Comments UA Glucose (test code = UA Negative mg/dL Glucose) [facility] [id number] 21:03:00 Test Item Value Reference Range Interpretation Comments UA Ketones (test code = UA Negative mg/dL Ketones) [facility] [id number] 21:03:00 Test Item Value Reference Range Interpretation Comments UA Bili (test code = Negative *NA*(10/07/21 UA Bili) 4:03 PM) [facility] [id number] 21:03:00 Test Item Value Reference Range Interpretation Comments UA Blood (test code = Negative (10/07/21 4:03 UA Blood) PM) [facility] [id number] 21:03:00 Test Item Value Reference Range Interpretation Comments UA Urobilinogen (test code = UA no gt 0.1-1.0 Urobilinogen) [facility] [id number] 21:03:00 Test Item Value Reference Range Interpretation Comments UA Nitrite (test code Negative (10/07/21 4:03 = UA Nitrite) PM) [facility] [id number] 21:03:00 Test Item Value Reference Range Interpretation Comments UA Leuk Est (test code Large *ABN*(10/07/21 = UA Leuk Est) 4:03 PM) [facility] [id number] 21:03:00 Test Item Value Reference Range Interpretation Comments UA WBC (test code = 64 See_Comment [Automa lester message] The UA WBC) system which ge nerated this result transmit lester reference range : <=5. The reference range was not used to interpr et this result as dany l/abnormal. [facility] [id number] 21:03:00 Test Item Value Reference Range Interpretation Comments UA RBC (test code = 2 See_Comment [Automa lester message] The UA RBC) system which ge nerated this result transmit lester reference range : <=2. The reference range was not used to interpr et this result as dany l/abnormal. [facility] [id number] 21:03:00 Test Item Value Reference Range Interpretation Comments UA Mucus (test code = UA Mucus) Few /LPF [facility] [id number] 21:03:00 Test Item Value Reference Range Interpretation Comments UA Sq Epi (test code = UA Sq Epi) None Seen [facility]2022-03-26 21:03:00 Test Item Value Reference Range Interpretation Comments Glucose Lvl (test code = Glucose Lvl) 126 70-99 [facility] [id number] 21:03:00 Test Item Value Reference Range Interpretation Comments BUN (test code = BUN) 16 7-22 [facility]2022-03-26 21:03:00 Test Item Value Reference Range Interpretation Comments Creatinine Lvl (test code = Creatinine 0.76 0.50-1.40 Lvl) [place] 988842-03-26 21:03:00 Test Item Value Reference Range Interpretation Comments Sodium Lvl (test code = Sodium Lvl) 140 135-145 [place] 988842-03-26 21:03:00 Test Item Value Reference Range Interpretation Comments Potassium Lvl (test code = Potassium 3.3 3.5-5.1 Lvl) [place] 988842-03-26 21:03:00 Test Item Value Reference Range Interpretation Comments Chloride Lvl (test code = Chloride Lvl) 111 95-109 [place] 988842-03-26 21:03:00 Test Item Value Reference Range Interpretation Comments CO2 (test code = CO2) 22 24-32 [place] 988842-03-26 21:03:00 Test Item Value Reference Range Interpretation Comments Calcium Lvl (test code = Calcium Lvl) 8.5 8.5-10.5 [place] 988842-03-26 21:03:00 Test Item Value Reference Range Interpretation Comments AGAP (test code = AGAP) 10.3 10.0-20.0 [place] 988842-03-26 21:03:00 Test Item Value Reference Range Interpretation Comments eGFR (test code = eGFR) 117 [place] 988842-03-26 21:03:00 Test Item Value Reference Range Interpretation Comments Lactic Acid Lvl (test code = Lactic 1.1 0.5-2.2 Acid Lvl) [place] 927472-03-26 21:03:00 Test Item Value Reference Range Interpretation Comments Segs (test code = Segs) 68.9 45.0-75.0 [place] 927472-03-26 21:03:00 Test Item Value Reference Range Interpretation Comments Lymphocytes (test code = Lymphocytes) 20.4 20.0-40.0 [place] [address]-03-26 21:03:00 Test Item Value Reference Range Interpretation Comments Monocytes (test code = Monocytes) 8.2 2.0-12.0 [place] [address]-03-26 21:03:00 Test Item Value Reference Range Interpretation Comments Eosinophils (test code = 2.2 See_Comment [A utomated message] The Eosinophils) system which ge nerated this result tra nsmitted reference range : <=4.0. The reference r boubacar was not used to int erpret this result as normal/abnormal . [facility] PointeKutkyloLSRJFFFRLK7137-61-57 21:03:00 Test Item Value Reference Range Interpretation Comments Basophils (test code = 0.3 See_Comment [Aut omated message] The Basophils) system which ge nerated this result tra nsmitted reference range : <=1.0. The reference r boubacar was not used to int erpret this result as normal/abnormal . [place] 927472-03-26 21:03:00 Test Item Value Reference Range Interpretation Comments Neutrophils # (test code = Neutrophils 5.5 1.5-8.1 #) [facility] PointeAessjlcNLNJRRKLMW5663-29-69 21:03:00 Test Item Value Reference Range Interpretation Comments Lymphocytes # (test code = Lymphocytes 1.6 1.0-5.5 #) [place] 927472-03-26 21:03:00 Test Item Value Reference Range Interpretation Comments Monocytes # (test code 0.7 See_Comment [Aut omated message] The = Monocytes #) system which generated this result tra nsmitted reference range : <=0.8. The reference r boubacar was not used to int erpret this result as normal/abnormal . [facility] PointeYreurmmCHAXBINBSF7486-76-87 21:03:00 Test Item Value Reference Range Interpretation Comments Eosinophils # (test code 0.2 See_Comment [A utomated message] The = Eosinophils #) system whic h generated this result tra nsmitted reference range : <=0.5. The reference r boubacar was not used to int erpret this result as normal/abnormal . [facility] PointeWydkfgzYSNJDCHHNN8810-78-55 21:03:00 Test Item Value Reference Range Interpretation Comments WBC (test code = WBC) 8.0 3.7-10.4 [place] 927472-03-26 21:03:00 Test Item Value Reference Range Interpretation Comments RBC (test code = RBC) 5.37 4.70-6.10 [place] 927472-03-26 21:03:00 Test Item Value Reference Range Interpretation Comments Hgb (test code = Hgb) 15.9 14.0-18.0 [place] 927472-03-26 21:03:00 Test Item Value Reference Range Interpretation Comments Hct (test code = Hct) 47.3 42.0-54.0 [facility]FpvmrgwGXSWEFOXIQ0888-89-72 21:03:00 Test Item Value Reference Range Interpretation Comments MCV (test code = MCV) 88.1 80.0-94.0 [facility] HospitalWoddlscAEQESGBIVK1291-66-58 21:03:00 Test Item Value Reference Range Interpretation Comments MCH (test code = MCH) 29.6 pg 27.0-31.0 [facility] HospitalFiidaloKUXAIGWFBL3211-95-28 21:03:00 Test Item Value Reference Range Interpretation Comments MCHC (test code = MCHC) 33.6 32.0-36.0 [facility] HospitalEuapuxaNXWEVNPVXA8293-04-40 21:03:00 Test Item Value Reference Range Interpretation Comments RDW (test code = RDW) 15.3 11.5-14.5 [facility] PointeUjcybxpEJRSPEPBLY8676-87-36 21:03:00 Test Item Value Reference Range Interpretation Comments Platelet (test code = Platelet) 370 133-450 [facility] PointeWljdksoRNYVALUGBN8262-08-87 21:03:00 Test Item Value Reference Range Interpretation Comments MPV (test code = MPV) 8.1 7.4-10.4 [facility] [id number] 21:03:00 Test Item Value Reference Range Interpretation Comments UA Comment 1 (test Suboptimal specimen code = UA Comment 1) received. Results may be inaccurate due to the age of the specimen. Interpret results with caution. [facility] [id number] 21:03:00 Test Item Value Reference Range Interpretation Comments UA Color (test code = Yellow *NA*(10/07/21 UA Color) 4:03 PM) [facility] AND [id number] 21:03:00 Test Item Value Reference Range Interpretation Comments UA Turbidity (test code Slight *ABN*(10/07/21 = UA Turbidity) 4:03 PM) [facility] [id number] 21:03:00 Test Item Value Reference Range Interpretation Comments UA Spec Grav (test code = UA Spec 1.015 1 Grav) [facility] [id number] 21:03:00 Test Item Value Reference Range Interpretation Comments UA pH (test code = UA pH) 5.0 1 5.0-8.0 [facility] [id number] 21:03:00 Test Item Value Reference Range Interpretation Comments UA Protein (test code = UA Negative mg/dL Protein) [facility] [id number] 21:03:00 Test Item Value Reference Range Interpretation Comments UA Glucose (test code = UA Negative mg/dL Glucose) [facility] [id number] 21:03:00 Test Item Value Reference Range Interpretation Comments UA Ketones (test code = UA Negative mg/dL Ketones) [facility] [id number] 21:03:00 Test Item Value Reference Range Interpretation Comments UA Bili (test code = Negative *NA*(10/07/21 UA Bili) 4:03 PM) [facility] [id number] 21:03:00 Test Item Value Reference Range Interpretation Comments UA Blood (test code = Negative (10/07/21 4:03 UA Blood) PM) [facility] [id number] 21:03:00 Test Item Value Reference Range Interpretation Comments UA Urobilinogen (test code = UA no gt 0.1-1.0 Urobilinogen) [facility] [id number] 21:03:00 Test Item Value Reference Range Interpretation Comments UA Nitrite (test code Negative (10/07/21 4:03 = UA Nitrite) PM) [facility] [id number] 21:03:00 Test Item Value Reference Range Interpretation Comments UA Leuk Est (test code Large *ABN*(10/07/21 = UA Leuk Est) 4:03 PM) [facility] [id number] 21:03:00 Test Item Value Reference Range Interpretation Comments UA WBC (test code = 64 See_Comment [Automa lester message] The UA WBC) system which ge nerated this result transmit lester reference range : <=5. The reference range was not used to interpr et this result as dany l/abnormal. [facility] AND [id number] 21:03:00 Test Item Value Reference Range Interpretation Comments UA RBC (test code = 2 See_Comment [Automa lester message] The UA RBC) system which ge nerated this result transmit lester reference range : <=2. The reference range was not used to interpr et this result as dany l/abnormal. [facility] AND [id number] 21:03:00 Test Item Value Reference Range Interpretation Comments UA Mucus (test code = UA Mucus) Few /LPF [facility] AND [id number] 21:03:00 Test Item Value Reference Range Interpretation Comments UA Sq Epi (test code = UA Sq Epi) None Seen [place] [id number] 09:58:00 Test Item Value Reference Range Interpretation Comments Lactic Acid Lvl (test code = Lactic 2.4 0.5-2.2 Acid Lvl) [place] 927472-03-26 09:58:00 Test Item Value Reference Range Interpretation Comments Sed Rate (test code = 13 See_Comment [Auto mated message] The Sed Rate) system which ge nerated this result transmit lester reference range : <=15. The reference range was not used to interpr et this result as dany l/abnormal. [place] [address]-03-26 09:58:00 Test Item Value Reference Range Interpretation Comments C-REACTIVE PROTEIN (test code = 10.6 C-REACTIVE PROTEIN) [place] [id number] 09:58:00 Test Item Value Reference Range Interpretation Comments Lactic Acid Lvl (test code = Lactic 2.4 0.5-2.2 Acid Lvl) [place] [address]-03-26 09:58:00 Test Item Value Reference Range Interpretation Comments Sed Rate (test code = 13 See_Comment [Auto mated message] The Sed Rate) system which ge nerated this result transmit lester reference range : <=15. The reference range was not used to interpr et this result as dany l/abnormal. [place] [address]-03-26 09:58:00 Test Item Value Reference Range Interpretation Comments C-REACTIVE PROTEIN (test code = 10.6 C-REACTIVE PROTEIN) [place] [address]-03-26 09:58:00 Test Item Value Reference Range Interpretation Comments Lactic Acid Lvl (test code = Lactic 2.4 0.5-2.2 Acid Lvl) [place] [address]-03-26 09:58:00 Test Item Value Reference Range Interpretation Comments Sed Rate (test code = 13 See_Comment [Auto mated message] The Sed Rate) system which ge nerated this result transmit lester reference range : <=15. The reference range was not used to interpr et this result as dany l/abnormal. [address]03-26 09:58:00 Test Item Value Reference Range Interpretation Comments C-REACTIVE PROTEIN (test code = 10.6 C-REACTIVE PROTEIN) [address]03-26 09:58:00 Test Item Value Reference Range Interpretation Comments Lactic Acid Lvl (test code = Lactic 2.4 0.5-2.2 Acid Lvl) [address]03-26 09:58:00 Test Item Value Reference Range Interpretation Comments Sed Rate (test code = 13 See_Comment [Auto mated message] The Sed Rate) system which ge nerated this result transmit lester reference range : <=15. The reference range was not used to interpr et this result as dany l/abnormal. [address]03-26 09:58:00 Test Item Value Reference Range Interpretation Comments C-REACTIVE PROTEIN (test code = 10.6 C-REACTIVE PROTEIN) [address]03-26 09:58:00 Test Item Value Reference Range Interpretation Comments Lactic Acid Lvl (test code = Lactic 2.4 0.5-2.2 Acid Lvl) [address]03-26 09:58:00 Test Item Value Reference Range Interpretation Comments Sed Rate (test code = 13 See_Comment [Auto mated message] The Sed Rate) system which ge nerated this result transmit lester reference range : <=15. The reference range was not used to interpr et this result as dany l/abnormal. [address]03-26 09:58:00 Test Item Value Reference Range Interpretation Comments C-REACTIVE PROTEIN (test code = 10.6 C-REACTIVE PROTEIN) [address]03-26 09:58:00 Test Item Value Reference Range Interpretation Comments Lactic Acid Lvl (test code = Lactic 2.4 0.5-2.2 Acid Lvl) [address]03-26 09:58:00 Test Item Value Reference Range Interpretation Comments Sed Rate (test code = 13 See_Comment [Auto mated message] The Sed Rate) system which ge nerated this result transmit lester reference range : <=15. The reference range was not used to interpr et this result as dany l/abnormal. [address]03-26 09:58:00 Test Item Value Reference Range Interpretation Comments C-REACTIVE PROTEIN (test code = 10.6 C-REACTIVE PROTEIN) [facility] [id number] 09:58:00 Test Item Value Reference Range Interpretation Comments Lactic Acid Lvl (test code = Lactic 2.4 0.5-2.2 Acid Lvl) [address]03-26 09:58:00 Test Item Value Reference Range Interpretation Comments Sed Rate (test code = 13 See_Comment [Auto mated message] The Sed Rate) system which ge nerated this result transmit lester reference range : <=15. The reference range was not used to interpr et this result as dany l/abnormal. [address]03-26 09:58:00 Test Item Value Reference Range Interpretation Comments C-REACTIVE PROTEIN (test code = 10.6 C-REACTIVE PROTEIN) [place] [id number] 09:58:00 Test Item Value Reference Range Interpretation Comments Lactic Acid Lvl (test code = Lactic 2.4 0.5-2.2 Acid Lvl) [address]03-26 09:58:00 Test Item Value Reference Range Interpretation Comments Sed Rate (test code = 13 See_Comment [Auto mated message] The Sed Rate) system which ge nerated this result transmit lester reference range : <=15. The reference range was not used to interpr et this result as dany l/abnormal. [place] 726732-03-26 09:58:00 Test Item Value Reference Range Interpretation Comments C-REACTIVE PROTEIN (test code = 10.6 C-REACTIVE PROTEIN) [place] 478212-03-25 18:36:00 Test Item Value Reference Range Interpretation Comments Protein CSF (test code = Protein CSF) 14 15-45 [facility] [id number] 18:36:00 Test Item Value Reference Range Interpretation Comments Glucose CSF (test code = Glucose CSF) 67 45-80 [place] 478212-03-25 18:36:00 Test Item Value Reference Range Interpretation Comments Tube Num CSF (test xxxxxxx (10/06/21 1:36 code = Tube Num CSF) PM) [place] 478212-03-25 18:36:00 Test Item Value Reference Range Interpretation Comments Color CSF (test code Colorless (10/06/21 1:36 = Color CSF) PM) [facility]2022-03-25 18:36:00 Test Item Value Reference Range Interpretation Comments Clarity CSF (test code = Clear (10/06/21 1:36 Clarity CSF) PM) [facility]2022-03-25 18:36:00 Test Item Value Reference Range Interpretation Comments Supernat CSF (test Colorless (10/06/21 1:36 code = Supernat CSF) PM) [facility]2022-03-25 18:36:00 Test Item Value Reference Range Interpretation Comments Nucleated Cells CSF 0 See_Comment [Automa lester message] The (test code = Nucleated syste m which generated Cells CSF) this result tra nsmitted reference range : <=53. The reference r boubacar was not used to int erpret this result as normal/abnormal . [facility]2022-03-25 18:36:00 Test Item Value Reference Range Interpretation Comments RBC CSF (test code = 0 See_Comment [Autom ated message] The RBC CSF) system which ge nerated this result transmit lester reference range : <=03. The reference range was not used to interpr et this result as dany l/abnormal. [facility]2022-03-25 18:36:00 Test Item Value Reference Range Interpretation Comments Comment CSF (test Differential not code = Comment CSF) performed on WBC count of less than 5. [facility] [id number] [facility]:36:00 Test Item Value Reference Range Interpretation Comments Gram Stain Report Gram Stain Performed By: (test code = Gram [facility] [id number] 18:36:00 Test Item Value Reference Range Interpretation Comments Culture: CSF w/Gram Stain (test No Growth code = Culture: CSF w/Gram Stain) [facility]2022-03-25 18:36:00 Test Item Value Reference Range Interpretation Comments Protein CSF (test code = Protein CSF) 14 15-[address] [facility]2022-03-25 18:36:00 Test Item Value Reference Range Interpretation Comments Glucose CSF (test code = Glucose CSF) 67 45-[address] [facility]2022-03-25 18:36:00 Test Item Value Reference Range Interpretation Comments Tube Num CSF (test xxxxxxx (10/06/21 1:36 code = Tube Num CSF) PM) [facility]2022-03-25 18:36:00 Test Item Value Reference Range Interpretation Comments Color CSF (test code Colorless (10/06/21 1:36 = Color CSF) PM) [facility]2022-03-25 18:36:00 Test Item Value Reference Range Interpretation Comments Clarity CSF (test code = Clear (10/06/21 1:36 Clarity CSF) PM) [facility]2022-03-25 18:36:00 Test Item Value Reference Range Interpretation Comments Supernat CSF (test Colorless (10/06/21 1:36 code = Supernat CSF) PM) [facility]2022-03-25 18:36:00 Test Item Value Reference Range Interpretation Comments Nucleated Cells CSF 0 See_Comment [Automa lester message] The (test code = Nucleated syste m which generated Cells CSF) this result tra nsmitted reference range : <=53. The reference r boubacar was not used to int erpret this result as normal/abnormal . [facility]2022-03-25 18:36:00 Test Item Value Reference Range Interpretation Comments RBC CSF (test code = 0 See_Comment [Autom ated message] The RBC CSF) system which ge nerated this result transmit lester reference range : <=03. The reference range was not used to interpr et this result as dany l/abnormal. [facility]2022-03-25 18:36:00 Test Item Value Reference Range Interpretation Comments Comment CSF (test Differential not code = Comment CSF) performed on WBC count of less than 5. [facility] [id number] 18:36:00 Test Item Value Reference Range Interpretation Comments Gram Stain Report Gram Stain Performed By: (test code = Gram [facility] St[facility] Report) [facility] w/Gram [id number] 18:36:00 Test Item Value Reference Range Interpretation Comments Culture: CSF w/Gram Stain (test No Growth code = Culture: CSF w/Gram Stain) [facility]2022-03-25 18:36:00 Test Item Value Reference Range Interpretation Comments Protein CSF (test code = Protein CSF) 14 15-45 [facility] [id number] 18:36:00 Test Item Value Reference Range Interpretation Comments Glucose CSF (test code = Glucose CSF) 67 45-[address] [facility]2022-03-25 18:36:00 Test Item Value Reference Range Interpretation Comments Tube Num CSF (test xxxxxxx (10/06/21 1:36 code = Tube Num CSF) PM) [facility]2022-03-25 18:36:00 Test Item Value Reference Range Interpretation Comments Color CSF (test code Colorless (10/06/21 1:36 = Color CSF) PM) [facility] [id number] 18:36:00 Test Item Value Reference Range Interpretation Comments Clarity CSF (test code = Clear (10/06/21 1:36 Clarity CSF) PM) [facility]2022-03-25 18:36:00 Test Item Value Reference Range Interpretation Comments Supernat CSF (test Colorless (10/06/21 1:36 code = Supernat CSF) PM) [facility]2022-03-25 18:36:00 Test Item Value Reference Range Interpretation Comments Nucleated Cells CSF 0 See_Comment [Automa lester message] The (test code = Nucleated syste m which generated Cells CSF) this result tra nsmitted reference range : <=53. The reference r boubacar was not used to int erpret this result as normal/abnormal . [facility]2022-03-25 18:36:00 Test Item Value Reference Range Interpretation Comments RBC CSF (test code = 0 See_Comment [Autom ated message] The RBC CSF) system which ge nerated this result transmit lester reference range : <=03. The reference range was not used to interpr et this result as dany l/abnormal. [facility] [id number] 18:36:00 Test Item Value Reference Range Interpretation Comments Comment CSF (test Differential not code = Comment CSF) performed on WBC count of less than 5. [facility] [id number] 18:36:00 Test Item Value Reference Range Interpretation Comments Gram Stain Report Gram Stain Performed By: (test code = Gram [facility] [place] St[facility] Report) [facility] w/Gram [id number] 18:36:00 Test Item Value Reference Range Interpretation Comments Culture: CSF w/Gram Stain (test No Growth code = Culture: CSF w/Gram Stain) [facility]2022-03-25 18:36:00 Test Item Value Reference Range Interpretation Comments Protein CSF (test code = Protein CSF) 14 15-[address] [facility]2022-03-25 18:36:00 Test Item Value Reference Range Interpretation Comments Glucose CSF (test code = Glucose CSF) 67 45-[address] [facility]2022-03-25 18:36:00 Test Item Value Reference Range Interpretation Comments Tube Num CSF (test xxxxxxx (10/06/21 1:36 code = Tube Num CSF) PM) [facility]2022-03-25 18:36:00 Test Item Value Reference Range Interpretation Comments Color CSF (test code Colorless (10/06/21 1:36 = Color CSF) PM) [facility]2022-03-25 18:36:00 Test Item Value Reference Range Interpretation Comments Clarity CSF (test code = Clear (10/06/21 1:36 Clarity CSF) PM) [facility]2022-03-25 18:36:00 Test Item Value Reference Range Interpretation Comments Supernat CSF (test Colorless (10/06/21 1:36 code = Supernat CSF) PM) [facility]2022-03-25 18:36:00 Test Item Value Reference Range Interpretation Comments Nucleated Cells CSF 0 See_Comment [Automa lester message] The (test code = Nucleated syste m which generated Cells CSF) this result tra nsmitted reference range : <=53. The reference r boubacar was not used to int erpret this result as normal/abnormal . [facility]2022-03-25 18:36:00 Test Item Value Reference Range Interpretation Comments RBC CSF (test code = 0 See_Comment [Autom ated message] The RBC CSF) system which ge nerated this result transmit lester reference range : <=03. The reference range was not used to interpr et this result as dany l/abnormal. [facility]2022-03-25 18:36:00 Test Item Value Reference Range Interpretation Comments Comment CSF (test Differential not code = Comment CSF) performed on WBC count of less than 5. [facility] [id number] 18:36:00 Test Item Value Reference Range Interpretation Comments Gram Stain Report Gram Stain Performed By: (test code = Gram [facility] Stain Report) [facility] w/Gram [id number] 18:36:00 Test Item Value Reference Range Interpretation Comments Culture: CSF w/Gram Stain (test No Growth code = Culture: CSF w/Gram Stain) [facility] [id number] 18:36:00 Test Item Value Reference Range Interpretation Comments Protein CSF (test code = Protein CSF) 14 15-[address] [facility]2022-03-25 18:36:00 Test Item Value Reference Range Interpretation Comments Glucose CSF (test code = Glucose CSF) 67 45-[address] [facility]2022-03-25 18:36:00 Test Item Value Reference Range Interpretation Comments Tube Num CSF (test xxxxxxx (10/06/21 1:36 code = Tube Num CSF) PM) [facility]2022-03-25 18:36:00 Test Item Value Reference Range Interpretation Comments Color CSF (test code Colorless (10/06/21 1:36 = Color CSF) PM) [facility]2022-03-25 18:36:00 Test Item Value Reference Range Interpretation Comments Clarity CSF (test code = Clear (10/06/21 1:36 Clarity CSF) PM) [facility]2022-03-25 18:36:00 Test Item Value Reference Range Interpretation Comments Supernat CSF (test Colorless (10/06/21 1:36 code = Supernat CSF) PM) [facility]2022-03-25 18:36:00 Test Item Value Reference Range Interpretation Comments Nucleated Cells CSF 0 See_Comment [Automa lseter message] The (test code = Nucleated syste m which generated Cells CSF) this result tra nsmitted reference range : <=53. The reference r boubacar was not used to int erpret this result as normal/abnormal . [facility]2022-03-25 18:36:00 Test Item Value Reference Range Interpretation Comments RBC CSF (test code = 0 See_Comment [Autom ated message] The RBC CSF) system which ge nerated this result transmit lester reference range : <=03. The reference range was not used to interpr et this result as dany l/abnormal. [facility]2022-03-25 18:36:00 Test Item Value Reference Range Interpretation Comments Comment CSF (test Differential not code = Comment CSF) performed on WBC count of less than 5. [facility] [id number] 18:36:00 Test Item Value Reference Range Interpretation Comments Gram Stain Report Gram Stain Performed By: (test code = Gram [facility] [place] Stain Report) [facility] w/Gram [id number] 18:36:00 Test Item Value Reference Range Interpretation Comments Culture: CSF w/Gram Stain (test No Growth code = Culture: CSF w/Gram Stain) [facility] [id number] 18:36:00 Test Item Value Reference Range Interpretation Comments Protein CSF (test code = Protein CSF) 14 15-[address] [facility]2022-03-25 18:36:00 Test Item Value Reference Range Interpretation Comments Glucose CSF (test code = Glucose CSF) 67 45-[address] [facility]2022-03-25 18:36:00 Test Item Value Reference Range Interpretation Comments Tube Num CSF (test xxxxxxx (10/06/21 1:36 code = Tube Num CSF) PM) [facility]2022-03-25 18:36:00 Test Item Value Reference Range Interpretation Comments Color CSF (test code Colorless (10/06/21 1:36 = Color CSF) PM) [facility]2022-03-25 18:36:00 Test Item Value Reference Range Interpretation Comments Clarity CSF (test code = Clear (10/06/21 1:36 Clarity CSF) PM) [facility]2022-03-25 18:36:00 Test Item Value Reference Range Interpretation Comments Supernat CSF (test Colorless (10/06/21 1:36 code = Supernat CSF) PM) [facility]2022-03-25 18:36:00 Test Item Value Reference Range Interpretation Comments Nucleated Cells CSF 0 See_Comment [Automa lester message] The (test code = Nucleated syste m which generated Cells CSF) this result tra nsmitted reference range : <=53. The reference r boubacar was not used to int erpret this result as normal/abnormal . [facility]2022-03-25 18:36:00 Test Item Value Reference Range Interpretation Comments RBC CSF (test code = 0 See_Comment [Autom ated message] The RBC CSF) system which ge nerated this result transmit lester reference range : <=03. The reference range was not used to interpr et this result as dany l/abnormal. [facility] [id number] 18:36:00 Test Item Value Reference Range Interpretation Comments Comment CSF (test Differential not code = Comment CSF) performed on WBC count of less than 5. [facility] [id number] 18:36:00 Test Item Value Reference Range Interpretation Comments Gram Stain Report Gram Stain Performed By: (test code = Gram [facility] St[facility] Report) [facility] w/Gram [id number] 18:36:00 Test Item Value Reference Range Interpretation Comments Culture: CSF w/Gram Stain (test No Growth code = Culture: CSF w/Gram Stain) [facility]2022-03-25 18:36:00 Test Item Value Reference Range Interpretation Comments Protein CSF (test code = Protein CSF) 14 15-[address] [facility]2022-03-25 18:36:00 Test Item Value Reference Range Interpretation Comments Glucose CSF (test code = Glucose CSF) 67 45-[address] [facility]2022-03-25 18:36:00 Test Item Value Reference Range Interpretation Comments Tube Num CSF (test xxxxxxx (10/06/21 1:36 code = Tube Num CSF) PM) [facility]2022-03-25 18:36:00 Test Item Value Reference Range Interpretation Comments Color CSF (test code Colorless (10/06/21 1:36 = Color CSF) PM) [facility]2022-03-25 18:36:00 Test Item Value Reference Range Interpretation Comments Clarity CSF (test code = Clear (10/06/21 1:36 Clarity CSF) PM) [facility]2022-03-25 18:36:00 Test Item Value Reference Range Interpretation Comments Supernat CSF (test Colorless (10/06/21 1:36 code = Supernat CSF) PM) [facility]2022-03-25 18:36:00 Test Item Value Reference Range Interpretation Comments Nucleated Cells CSF 0 See_Comment [Automa lester message] The (test code = Nucleated syste m which generated Cells CSF) this result tra nsmitted reference range : <=53. The reference r boubacar was not used to int erpret this result as normal/abnormal . [facility] [id number] 18:36:00 Test Item Value Reference Range Interpretation Comments RBC CSF (test code = 0 See_Comment [Autom ated message] The RBC CSF) system which ge nerated this result transmit lester reference range : <=03. The reference range was not used to interpr et this result as dany l/abnormal. [facility]2022-03-25 18:36:00 Test Item Value Reference Range Interpretation Comments Comment CSF (test Differential not code = Comment CSF) performed on WBC count of less than 5. [facility] [id number] 18:36:00 Test Item Value Reference Range Interpretation Comments Gram Stain Report Gram Stain Performed By: (test code = Gram [facility] St[facility] Report) [facility] w/Gram [id number] 18:36:00 Test Item Value Reference Range Interpretation Comments Culture: CSF w/Gram Stain (test No Growth code = Culture: CSF w/Gram Stain) [facility]2022-03-25 18:36:00 Test Item Value Reference Range Interpretation Comments Protein CSF (test code = Protein CSF) 14 15-[address] [facility]2022-03-25 18:36:00 Test Item Value Reference Range Interpretation Comments Glucose CSF (test code = Glucose CSF) 67 45-[address] [facility]2022-03-25 18:36:00 Test Item Value Reference Range Interpretation Comments Tube Num CSF (test xxxxxxx (10/06/21 1:36 code = Tube Num CSF) PM) [facility]2022-03-25 18:36:00 Test Item Value Reference Range Interpretation Comments Color CSF (test code Colorless (10/06/21 1:36 = Color CSF) PM) [facility]2022-03-25 18:36:00 Test Item Value Reference Range Interpretation Comments Clarity CSF (test code = Clear (10/06/21 1:36 Clarity CSF) PM) [facility]2022-03-25 18:36:00 Test Item Value Reference Range Interpretation Comments Supernat CSF (test Colorless (10/06/21 1:36 code = Supernat CSF) PM) [facility]2022-03-25 18:36:00 Test Item Value Reference Range Interpretation Comments Nucleated Cells CSF 0 See_Comment [Automa lester message] The (test code = Nucleated syste m which generated Cells CSF) this result tra nsmitted reference range : <=53. The reference r boubacar was not used to int erpret this result as normal/abnormal . [facility] [id number] 18:36:00 Test Item Value Reference Range Interpretation Comments RBC CSF (test code = 0 See_Comment [Autom ated message] The RBC CSF) system which ge nerated this result transmit lester reference range : <=03. The reference range was not used to interpr et this result as dany l/abnormal. [facility] [id number] 18:36:00 Test Item Value Reference Range Interpretation Comments Comment CSF (test Differential not code = Comment CSF) performed on WBC count of less than 5. [facility] [id number] 18:36:00 Test Item Value Reference Range Interpretation Comments Gram Stain Report Gram Stain Performed By: (test code = [facility] w/Gram [id number] 18:36:00 Test Item Value Reference Range Interpretation Comments Culture: CSF w/Gram Stain (test No Growth code = Culture: CSF w/Gram Stain) [facility]UkztcyjICHMJMTJEQ8467-49-76 08:28:00 Test Item Value Reference Range Interpretation Comments Coronavirus (COVID-19) Not Detected (10/06/21 OUMOU (test code = 3:28 AM) Coronavirus (COVID-19) OUMOU) [facility]anoLyyejhlLVPRYXJFED5269-10-21 08:28:00 Test Item Value Reference Range Interpretation Comments Coronavirus (COVID-19) Not Detected (10/06/21 OUMOU (test code = 3:28 AM) Coronavirus (COVID-19) OUMOU) [place] [address]-03-25 08:28:00 Test Item Value Reference Range Interpretation Comments Coronavirus (COVID-19) Not Detected (10/06/21 OUMOU (test code = 3:28 AM) Coronavirus (COVID-19) OUMOU) [place] [address]-03-25 08:28:00 Test Item Value Reference Range Interpretation Comments Coronavirus (COVID-19) Not Detected (10/06/21 OUMOU (test code = 3:28 AM) Coronavirus (COVID-19) OUMOU) [facility]anoOnmxcenFGOXNXUUQA6649-69-21 08:28:00 Test Item Value Reference Range Interpretation Comments Coronavirus (COVID-19) Not Detected (10/06/21 OUMOU (test code = 3:28 AM) Coronavirus (COVID-19) OUMOU) [facility]anoKpbsasoUWDYLBOVOG1283-21-31 08:28:00 Test Item Value Reference Range Interpretation Comments Coronavirus (COVID-19) Not Detected (10/06/21 OUMOU (test code = 3:28 AM) Coronavirus (COVID-19) OUMOU) [facility]anoNdehbjpASUOSOQNNZ8213-30-82 08:28:00 Test Item Value Reference Range Interpretation Comments Coronavirus (COVID-19) Not Detected (10/06/21 OUMOU (test code = 3:28 AM) Coronavirus (COVID-19) OUMOU) [facility] PlanoPixaoxuPMKQLEVFZX0141-94-80 08:28:00 Test Item Value Reference Range Interpretation Comments Coronavirus (COVID-19) Not Detected (10/06/21 OUMOU (test code = 3:28 AM) Coronavirus (COVID-19) OUMOU) [facility] [id number] 06:48:00 Test Item Value Reference Range Interpretation Comments Antibody Scrn (test Negative (10/06/21 1:48 code = Antibody Scrn) AM) [facility] [id number] 06:48:00 Test Item Value Reference Range Interpretation Comments ABO/Rh (test code = ABO/Rh) AB POS [facility] PointeSsnxjywIIFOFXCRZC5051-97-60 06:48:00 Test Item Value Reference Range Interpretation Comments Segs (test code = Segs) 70.8 45.0-75.0 [facility] HospitalVndbilsEHJRVGGRSE4490-61-94 06:48:00 Test Item Value Reference Range Interpretation Comments Lymphocytes (test code = Lymphocytes) 20.8 20.0-40.0 [facility] PointeNatowzbADTWPBYFID9349-97-89 06:48:00 Test Item Value Reference Range Interpretation Comments Monocytes (test code = Monocytes) 5.8 2.0-12.0 [facility] PointeUlkbyxiLQJIRTACZT1882-16-18 06:48:00 Test Item Value Reference Range Interpretation Comments Eosinophils (test code = 2.3 See_Comment [A utomated message] The Eosinophils) system which ge nerated this result tra nsmitted reference range : <=4.0. The reference r boubacar was not used to int erpret this result as normal/abnormal . [place] 927472-03-25 06:48:00 Test Item Value Reference Range Interpretation Comments Basophils (test code = 0.3 See_Comment [Aut omated message] The Basophils) system which ge nerated this result tra nsmitted reference range : <=1.0. The reference r boubacar was not used to int erpret this result as normal/abnormal . [facility] PointeRmntgxxQQWUMMMLFT7430-82-65 06:48:00 Test Item Value Reference Range Interpretation Comments Neutrophils # (test code = Neutrophils 8.4 1.5-8.1 #) [place] 927472-03-25 06:48:00 Test Item Value Reference Range Interpretation Comments Lymphocytes # (test code = Lymphocytes 2.5 1.0-5.5 #) [place] 927472-03-25 06:48:00 Test Item Value Reference Range Interpretation Comments Monocytes # (test code 0.7 See_Comment [Aut omated message] The = Monocytes #) system which generated this result tra nsmitted reference range : <=0.8. The reference r boubacar was not used to int erpret this result as normal/abnormal . [place] 927472-03-25 06:48:00 Test Item Value Reference Range Interpretation Comments Eosinophils # (test code 0.3 See_Comment [A utomated message] The = Eosinophils #) system whic h generated this result tra nsmitted reference range : <=0.5. The reference r boubacar was not used to int erpret this result as normal/abnormal . [facility] PointeLwlqjbwNTDBVTSRPP6554-34-41 06:48:00 Test Item Value Reference Range Interpretation Comments WBC X 10x3 (test code = WBC X 10x3) 11.9 3.7-10.4 [place] 927472-03-25 06:48:00 Test Item Value Reference Range Interpretation Comments RBC X 10x6 (test code = RBC X 10x6) 5.95 4.70-6.10 [place] 927472-03-25 06:48:00 Test Item Value Reference Range Interpretation Comments Hgb (test code = Hgb) 17.9 14.0-18.0 [facility] RenaissanceLmvjskoHIFIRSGNVU7579-46-89 06:48:00 Test Item Value Reference Range Interpretation Comments Hct (test code = Hct) 52.0 42.0-54.0 [facility] HospitalSatjpslFAQFCUCGRS5189-71-70 06:48:00 Test Item Value Reference Range Interpretation Comments MCV (test code = MCV) 87.5 80.0-94.0 [facility] RenaissanceXesqmbvJHIPVRRPOG6449-70-76 06:48:00 Test Item Value Reference Range Interpretation Comments MCH (test code = MCH) 30.2 pg 27.0-31.0 [facility] RenaissanceTcmzdcqJEYOTYOMDN8422-33-07 06:48:00 Test Item Value Reference Range Interpretation Comments MCHC (test code = MCHC) 34.5 32.0-36.0 [facility] RenaissanceYcjhpzlYYNSDZQUAB8701-29-67 06:48:00 Test Item Value Reference Range Interpretation Comments RDW (test code = RDW) 15.4 11.5-14.5 [facility] RenaissanceXqurxpbIVWZSUIVGS5086-95-06 06:48:00 Test Item Value Reference Range Interpretation Comments Platelet (test code = Platelet) 414 133-450 [facility] RenaissanceVfwixthOOSQAHICZD3461-71-08 06:48:00 Test Item Value Reference Range Interpretation Comments MPV (test code = MPV) 8.5 7.4-10.4 [facility] RenaissanceTybrqqoRFYDMLYPOY7255-73-77 06:48:00 Test Item Value Reference Range Interpretation Comments PT (test code = PT) 12.9 s 12.0-14.7 [facility] RenaissanceInjlkciOLZCCSANAU7362-72-92 06:48:00 Test Item Value Reference Range Interpretation Comments INR (test code = INR) 0.98 1 0.85-1.17 [facility] RenaissanceKqdirbzTMAVJNUMCK0601-28-81 06:48:00 Test Item Value Reference Range Interpretation Comments PTT (test code = PTT) 31.4 s 22.9-35.8 [facility] [employer] [id number] 06:48:00 Test Item Value Reference Range Interpretation Comments Antibody Scrn (test Negative (10/06/21 1:48 code = Antibody Scrn) AM) [facility] [employer] [id number] 06:48:00 Test Item Value Reference Range Interpretation Comments ABO/Rh (test code = ABO/Rh) AB POS [place] 927472-03-25 06:48:00 Test Item Value Reference Range Interpretation Comments Segs (test code = Segs) 70.8 45.0-75.0 [place] 927472-03-25 06:48:00 Test Item Value Reference Range Interpretation Comments Lymphocytes (test code = Lymphocytes) 20.8 20.0-40.0 [place] 927472-03-25 06:48:00 Test Item Value Reference Range Interpretation Comments Monocytes (test code = Monocytes) 5.8 2.0-12.0 [place] [address]-03-25 06:48:00 Test Item Value Reference Range Interpretation Comments Eosinophils (test code = 2.3 See_Comment [A utomated message] The Eosinophils) system which ge nerated this result tra nsmitted reference range : <=4.0. The reference r boubacar was not used to int erpret this result as normal/abnormal . [place] [address]-03-25 06:48:00 Test Item Value Reference Range Interpretation Comments Basophils (test code = 0.3 See_Comment [Aut omated message] The Basophils) system which ge nerated this result tra nsmitted reference range : <=1.0. The reference r boubacar was not used to int erpret this result as normal/abnormal . [place] 927472-03-25 06:48:00 Test Item Value Reference Range Interpretation Comments Neutrophils # (test code = Neutrophils 8.4 1.5-8.1 #) [place] 927472-03-25 06:48:00 Test Item Value Reference Range Interpretation Comments Lymphocytes # (test code = Lymphocytes 2.5 1.0-5.5 #) [place] 927472-03-25 06:48:00 Test Item Value Reference Range Interpretation Comments Monocytes # (test code 0.7 See_Comment [Aut omated message] The = Monocytes #) system which generated this result tra nsmitted reference range : <=0.8. The reference r boubacar was not used to int erpret this result as normal/abnormal . [place] 927472-03-25 06:48:00 Test Item Value Reference Range Interpretation Comments Eosinophils # (test code 0.3 See_Comment [A utomated message] The = Eosinophils #) system whic h generated this result tra nsmitted reference range : <=0.5. The reference r boubacar was not used to int erpret this result as normal/abnormal . [facility] PointeIqbfbyrHOXOAPJPVU9818-36-19 06:48:00 Test Item Value Reference Range Interpretation Comments WBC X 10x3 (test code = WBC X 10x3) 11.9 3.7-10.4 [place] 927472-03-25 06:48:00 Test Item Value Reference Range Interpretation Comments RBC X 10x6 (test code = RBC X 10x6) 5.95 4.70-6.10 [place] 927472-03-25 06:48:00 Test Item Value Reference Range Interpretation Comments Hgb (test code = Hgb) 17.9 14.0-18.0 [place] 927472-03-25 06:48:00 Test Item Value Reference Range Interpretation Comments Hct (test code = Hct) 52.0 42.0-54.0 [place] [address]-03-25 06:48:00 Test Item Value Reference Range Interpretation Comments MCV (test code = MCV) 87.5 80.0-94.0 [place] [address]-03-25 06:48:00 Test Item Value Reference Range Interpretation Comments MCH (test code = MCH) 30.2 pg 27.0-31.0 [place] 927472-03-25 06:48:00 Test Item Value Reference Range Interpretation Comments MCHC (test code = MCHC) 34.5 32.0-36.0 [place] [address]-03-25 06:48:00 Test Item Value Reference Range Interpretation Comments RDW (test code = RDW) 15.4 11.5-14.5 [place] 927472-03-25 06:48:00 Test Item Value Reference Range Interpretation Comments Platelet (test code = Platelet) 414 133-450 [place] 927472-03-25 06:48:00 Test Item Value Reference Range Interpretation Comments MPV (test code = MPV) 8.5 7.4-10.4 [place] [address]-03-25 06:48:00 Test Item Value Reference Range Interpretation Comments PT (test code = PT) 12.9 s 12.0-14.7 [place] 927472-03-25 06:48:00 Test Item Value Reference Range Interpretation Comments INR (test code = INR) 0.98 1 0.85-1.17 [facility] PointeWiynniiQMNRZIPJMJ5791-41-78 06:48:00 Test Item Value Reference Range Interpretation Comments PTT (test code = PTT) 31.4 s 22.9-35.8 [facility] WCOPBTA9118-17-06 06:48:00 Test Item Value Reference Range Interpretation Comments Antibody Scrn (test Negative (10/06/21 1:48 code = Antibody Scrn) AM) [facility] LRUIWRQ9837-99-02 06:48:00 Test Item Value Reference Range Interpretation Comments ABO/Rh (test code = ABO/Rh) AB POS [facility] PointePkuuataPKUTAOQKLD7197-98-17 06:48:00 Test Item Value Reference Range Interpretation Comments Segs (test code = Segs) 70.8 45.0-75.0 [facility] PointeBokpqefCMNCUSYGOS1677-59-46 06:48:00 Test Item Value Reference Range Interpretation Comments Lymphocytes (test code = Lymphocytes) 20.8 20.0-40.0 [facility] PointeInfbrowXILNVQGOQE0914-33-21 06:48:00 Test Item Value Reference Range Interpretation Comments Monocytes (test code = Monocytes) 5.8 2.0-12.0 [facility] PointeTongkggCNZXBFOJBK9964-68-26 06:48:00 Test Item Value Reference Range Interpretation Comments Eosinophils (test code = 2.3 See_Comment [A utomated message] The Eosinophils) system which ge nerated this result tra nsmitted reference range : <=4.0. The reference r boubacar was not used to int erpret this result as normal/abnormal . [facility] PointeIsmovkxPKGQDMKCXF5305-42-45 06:48:00 Test Item Value Reference Range Interpretation Comments Basophils (test code = 0.3 See_Comment [Aut omated message] The Basophils) system which ge nerated this result tra nsmitted reference range : <=1.0. The reference r boubacar was not used to int erpret this result as normal/abnormal . [facility] PointeIacwqumWVAIUUYDMC7723-23-38 06:48:00 Test Item Value Reference Range Interpretation Comments Neutrophils # (test code = Neutrophils 8.4 1.5-8.1 #) [facility] PointeXdluwerYXSUDPLRLU2013-57-20 06:48:00 Test Item Value Reference Range Interpretation Comments Lymphocytes # (test code = Lymphocytes 2.5 1.0-5.5 #) [facility] PointeOwblauyMRZWCNKDEE2918-94-70 06:48:00 Test Item Value Reference Range Interpretation Comments Monocytes # (test code 0.7 See_Comment [Aut omated message] The = Monocytes #) system which generated this result tra nsmitted reference range : <=0.8. The reference r boubacar was not used to int erpret this result as normal/abnormal . [facility] PointeNshnhmxAPQCCNVOEK2467-36-76 06:48:00 Test Item Value Reference Range Interpretation Comments Eosinophils # (test code 0.3 See_Comment [A utomated message] The = Eosinophils #) system whic h generated this result tra nsmitted reference range : <=0.5. The reference r boubacar was not used to int erpret this result as normal/abnormal . [facility] PointeSmjzpoaPBYCRZCQWK1292-73-34 06:48:00 Test Item Value Reference Range Interpretation Comments WBC X 10x3 (test code = WBC X 10x3) 11.9 3.7-10.4 [place] 927472-03-25 06:48:00 Test Item Value Reference Range Interpretation Comments RBC X 10x6 (test code = RBC X 10x6) 5.95 4.70-6.10 [place] 927472-03-25 06:48:00 Test Item Value Reference Range Interpretation Comments Hgb (test code = Hgb) 17.9 14.0-18.0 [place] 927472-03-25 06:48:00 Test Item Value Reference Range Interpretation Comments Hct (test code = Hct) 52.0 42.0-54.0 [place] 927472-03-25 06:48:00 Test Item Value Reference Range Interpretation Comments MCV (test code = MCV) 87.5 80.0-94.0 [place] 927472-03-25 06:48:00 Test Item Value Reference Range Interpretation Comments MCH (test code = MCH) 30.2 pg 27.0-31.0 [place] 927472-03-25 06:48:00 Test Item Value Reference Range Interpretation Comments MCHC (test code = MCHC) 34.5 32.0-36.0 [place] 927472-03-25 06:48:00 Test Item Value Reference Range Interpretation Comments RDW (test code = RDW) 15.4 11.5-14.5 [facility] RenaissanceJomstvpUBGUJDXETO7798-85-89 06:48:00 Test Item Value Reference Range Interpretation Comments Platelet (test code = Platelet) 414 133-450 [facility] PointeSayjienZXUUBRVYVW0771-93-09 06:48:00 Test Item Value Reference Range Interpretation Comments MPV (test code = MPV) 8.5 7.4-10.4 [facility] PointeAgdcpjgDXSQWEYPXK5490-71-32 06:48:00 Test Item Value Reference Range Interpretation Comments PT (test code = PT) 12.9 s 12.0-14.7 [facility] RenaissanceBsrivtdJTSOTYABQJ8431-74-62 06:48:00 Test Item Value Reference Range Interpretation Comments INR (test code = INR) 0.98 1 0.85-1.17 [facility] PointeKywqegjSVHWLVTUOA8603-64-47 06:48:00 Test Item Value Reference Range Interpretation Comments PTT (test code = PTT) 31.4 s 22.9-35.8 [facility] OCZBIIK2077-37-14 06:48:00 Test Item Value Reference Range Interpretation Comments Antibody Scrn (test Negative (10/06/21 1:48 code = Antibody Scrn) AM) [facility] [employer] [id number] 06:48:00 Test Item Value Reference Range Interpretation Comments ABO/Rh (test code = ABO/Rh) AB POS [facility]JelafjdUPJNYTQTXW2194-58-79 06:48:00 Test Item Value Reference Range Interpretation Comments Segs (test code = Segs) 70.8 45.0-75.0 [facility] HospitalMaxdjzjGPVDNDOIFL7055-68-04 06:48:00 Test Item Value Reference Range Interpretation Comments Lymphocytes (test code = Lymphocytes) 20.8 20.0-40.0 [facility] RenaissanceGzgocguLYZEESFNJB5848-84-49 06:48:00 Test Item Value Reference Range Interpretation Comments Monocytes (test code = Monocytes) 5.8 2.0-12.0 [facility] HospitalGhoewfdWGMPGZEFLK1321-44-13 06:48:00 Test Item Value Reference Range Interpretation Comments Eosinophils (test code = 2.3 See_Comment [A utomated message] The Eosinophils) system which ge nerated this result tra nsmitted reference range : <=4.0. The reference r boubacar was not used to int erpret this result as normal/abnormal . [place] 927472-03-25 06:48:00 Test Item Value Reference Range Interpretation Comments Basophils (test code = 0.3 See_Comment [Aut omated message] The Basophils) system which ge nerated this result tra nsmitted reference range : <=1.0. The reference r boubacar was not used to int erpret this result as normal/abnormal . [place] 927472-03-25 06:48:00 Test Item Value Reference Range Interpretation Comments Neutrophils # (test code = Neutrophils 8.4 1.5-8.1 #) [place] 927472-03-25 06:48:00 Test Item Value Reference Range Interpretation Comments Lymphocytes # (test code = Lymphocytes 2.5 1.0-5.5 #) [place] 927472-03-25 06:48:00 Test Item Value Reference Range Interpretation Comments Monocytes # (test code 0.7 See_Comment [Aut omated message] The = Monocytes #) system which generated this result tra nsmitted reference range : <=0.8. The reference r boubacar was not used to int erpret this result as normal/abnormal . [place] 927472-03-25 06:48:00 Test Item Value Reference Range Interpretation Comments Eosinophils # (test code 0.3 See_Comment [A utomated message] The = Eosinophils #) system whic h generated this result tra nsmitted reference range : <=0.5. The reference r boubacar was not used to int erpret this result as normal/abnormal . [facility] PointeSszkcdjHALDWURUQI5173-57-91 06:48:00 Test Item Value Reference Range Interpretation Comments WBC X 10x3 (test code = WBC X 10x3) 11.9 3.7-10.4 [place] 927472-03-25 06:48:00 Test Item Value Reference Range Interpretation Comments RBC X 10x6 (test code = RBC X 10x6) 5.95 4.70-6.10 [place] 927472-03-25 06:48:00 Test Item Value Reference Range Interpretation Comments Hgb (test code = Hgb) 17.9 14.0-18.0 [place] 927472-03-25 06:48:00 Test Item Value Reference Range Interpretation Comments Hct (test code = Hct) 52.0 42.0-54.0 [facility] HospitalNjfgfwjSEGDJHSZLQ6880-55-03 06:48:00 Test Item Value Reference Range Interpretation Comments MCV (test code = MCV) 87.5 80.0-94.0 [facility] PointeAhlqnygGIOZWMSPPK1868-86-24 06:48:00 Test Item Value Reference Range Interpretation Comments MCH (test code = MCH) 30.2 pg 27.0-31.0 [facility] HospitalGexerynALPSBUCHBJ7235-72-66 06:48:00 Test Item Value Reference Range Interpretation Comments MCHC (test code = MCHC) 34.5 32.0-36.0 [facility] RenaissanceSxyfrtfQDNKVZTGSA6208-17-94 06:48:00 Test Item Value Reference Range Interpretation Comments RDW (test code = RDW) 15.4 11.5-14.5 [facility] HospitalQyqxzgoOBTFJCJJLK0867-96-11 06:48:00 Test Item Value Reference Range Interpretation Comments Platelet (test code = Platelet) 414 133-450 [facility] HospitalZfjemqhZLTOISHOAQ4339-72-49 06:48:00 Test Item Value Reference Range Interpretation Comments MPV (test code = MPV) 8.5 7.4-10.4 [facility] RenaissanceTiouakhIDQZUURSZE3727-32-53 06:48:00 Test Item Value Reference Range Interpretation Comments PT (test code = PT) 12.9 s 12.0-14.7 [facility] HospitalZeqxvnuAZZRJELMDJ7525-71-09 06:48:00 Test Item Value Reference Range Interpretation Comments INR (test code = INR) 0.98 1 0.85-1.17 [facility] HospitalGqgszeaRPWRJUHLEV7047-56-86 06:48:00 Test Item Value Reference Range Interpretation Comments PTT (test code = PTT) 31.4 s 22.9-35.8 [facility] [employer] [id number] 06:48:00 Test Item Value Reference Range Interpretation Comments Antibody Scrn (test Negative (10/06/21 1:48 code = Antibody Scrn) AM) [facility] [id number] 06:48:00 Test Item Value Reference Range Interpretation Comments ABO/Rh (test code = ABO/Rh) AB POS [facility] RenaissanceUkvhcaaUTAPZUZBFQ7585-79-41 06:48:00 Test Item Value Reference Range Interpretation Comments Segs (test code = Segs) 70.8 45.0-75.0 [place] 927472-03-25 06:48:00 Test Item Value Reference Range Interpretation Comments Lymphocytes (test code = Lymphocytes) 20.8 20.0-40.0 [place] 927472-03-25 06:48:00 Test Item Value Reference Range Interpretation Comments Monocytes (test code = Monocytes) 5.8 2.0-12.0 [place] 927472-03-25 06:48:00 Test Item Value Reference Range Interpretation Comments Eosinophils (test code = 2.3 See_Comment [A utomated message] The Eosinophils) system which ge nerated this result tra nsmitted reference range : <=4.0. The reference r boubacar was not used to int erpret this result as normal/abnormal . [place] 927472-03-25 06:48:00 Test Item Value Reference Range Interpretation Comments Basophils (test code = 0.3 See_Comment [Aut omated message] The Basophils) system which ge nerated this result tra nsmitted reference range : <=1.0. The reference r boubacar was not used to int erpret this result as normal/abnormal . [facility] PointeUhigvopOQGXYCZUDC7848-43-61 06:48:00 Test Item Value Reference Range Interpretation Comments Neutrophils # (test code = Neutrophils 8.4 1.5-8.1 #) [place] 927472-03-25 06:48:00 Test Item Value Reference Range Interpretation Comments Lymphocytes # (test code = Lymphocytes 2.5 1.0-5.5 #) [place] 927472-03-25 06:48:00 Test Item Value Reference Range Interpretation Comments Monocytes # (test code 0.7 See_Comment [Aut omated message] The = Monocytes #) system which generated this result tra nsmitted reference range : <=0.8. The reference r boubacar was not used to int erpret this result as normal/abnormal . [place] 927472-03-25 06:48:00 Test Item Value Reference Range Interpretation Comments Eosinophils # (test code 0.3 See_Comment [A utomated message] The = Eosinophils #) system ic h generated this result tra nsmitted reference range : <=0.5. The reference r boubacar was not used to int erpret this result as normal/abnormal . [place] 927472-03-25 06:48:00 Test Item Value Reference Range Interpretation Comments WBC X 10x3 (test code = WBC X 10x3) 11.9 3.7-10.4 [place] 927472-03-25 06:48:00 Test Item Value Reference Range Interpretation Comments RBC X 10x6 (test code = RBC X 10x6) 5.95 4.70-6.10 [place] [address]-03-25 06:48:00 Test Item Value Reference Range Interpretation Comments Hgb (test code = Hgb) 17.9 14.0-18.0 [place] [address]-03-25 06:48:00 Test Item Value Reference Range Interpretation Comments Hct (test code = Hct) 52.0 42.0-54.0 [place] [address]-03-25 06:48:00 Test Item Value Reference Range Interpretation Comments MCV (test code = MCV) 87.5 80.0-94.0 [place] [address]-03-25 06:48:00 Test Item Value Reference Range Interpretation Comments MCH (test code = MCH) 30.2 pg 27.0-31.0 [place] [address]-03-25 06:48:00 Test Item Value Reference Range Interpretation Comments MCHC (test code = MCHC) 34.5 32.0-36.0 [place] [address]-03-25 06:48:00 Test Item Value Reference Range Interpretation Comments RDW (test code = RDW) 15.4 11.5-14.5 [place] [address]-03-25 06:48:00 Test Item Value Reference Range Interpretation Comments Platelet (test code = Platelet) 414 133-450 [place] 927472-03-25 06:48:00 Test Item Value Reference Range Interpretation Comments MPV (test code = MPV) 8.5 7.4-10.4 [place] [address]-03-25 06:48:00 Test Item Value Reference Range Interpretation Comments PT (test code = PT) 12.9 s 12.0-14.7 [place] [address]-03-25 06:48:00 Test Item Value Reference Range Interpretation Comments INR (test code = INR) 0.98 1 0.85-1.17 [facility]inteDuyzcacFSNITTJRUV3340-89-92 06:48:00 Test Item Value Reference Range Interpretation Comments PTT (test code = PTT) 31.4 s 22.9-35.8 [facility] GZBRPOJ7169-79-75 06:48:00 Test Item Value Reference Range Interpretation Comments Antibody Scrn (test Negative (10/06/21 1:48 code = Antibody Scrn) AM) [facility] HVPEGNK3283-66-60 06:48:00 Test Item Value Reference Range Interpretation Comments ABO/Rh (test code = ABO/Rh) AB POS [facility] PointeCemzkokKAZQXDPAZO6196-49-55 06:48:00 Test Item Value Reference Range Interpretation Comments Segs (test code = Segs) 70.8 45.0-75.0 [facility] PointeGpticgiMZVRYCMKWQ2227-00-33 06:48:00 Test Item Value Reference Range Interpretation Comments Lymphocytes (test code = Lymphocytes) 20.8 20.0-40.0 [facility] PointeIsajvliNRCUZMJOGE5313-82-04 06:48:00 Test Item Value Reference Range Interpretation Comments Monocytes (test code = Monocytes) 5.8 2.0-12.0 [facility] PointeCycctqeWITUYGXQVM9927-83-32 06:48:00 Test Item Value Reference Range Interpretation Comments Eosinophils (test code = 2.3 See_Comment [A utomated message] The Eosinophils) system which ge nerated this result tra nsmitted reference range : <=4.0. The reference r boubacar was not used to int erpret this result as normal/abnormal . [facility] PointeErsazclGWCXLAREUI1333-91-31 06:48:00 Test Item Value Reference Range Interpretation Comments Basophils (test code = 0.3 See_Comment [Aut omated message] The Basophils) system which ge nerated this result tra nsmitted reference range : <=1.0. The reference r boubacar was not used to int erpret this result as normal/abnormal . [facility] PointeXkwztmjPTXAEVCOLE3052-03-62 06:48:00 Test Item Value Reference Range Interpretation Comments Neutrophils # (test code = Neutrophils 8.4 1.5-8.1 #) [facility] PointeTmjfekfMXVTJAJQQW8858-48-35 06:48:00 Test Item Value Reference Range Interpretation Comments Lymphocytes # (test code = Lymphocytes 2.5 1.0-5.5 #) [place] 927472-03-25 06:48:00 Test Item Value Reference Range Interpretation Comments Monocytes # (test code 0.7 See_Comment [Aut omated message] The = Monocytes #) system which generated this result tra nsmitted reference range : <=0.8. The reference r boubacar was not used to int erpret this result as normal/abnormal . [facility] PointeWbgyeszNOXSETBXZZ2638-33-27 06:48:00 Test Item Value Reference Range Interpretation Comments Eosinophils # (test code 0.3 See_Comment [A utomated message] The = Eosinophils #) system whic h generated this result tra nsmitted reference range : <=0.5. The reference r boubacar was not used to int erpret this result as normal/abnormal . [facility] PointeSwrsaacRFAOUUWZZH7319-68-39 06:48:00 Test Item Value Reference Range Interpretation Comments WBC X 10x3 (test code = WBC X 10x3) 11.9 3.7-10.4 [place] 927472-03-25 06:48:00 Test Item Value Reference Range Interpretation Comments RBC X 10x6 (test code = RBC X 10x6) 5.95 4.70-6.10 [facility] PointeZnhpmabFQWHHNZBSX8178-76-04 06:48:00 Test Item Value Reference Range Interpretation Comments Hgb (test code = Hgb) 17.9 14.0-18.0 [facility] PointeGewojavWCMVNSAXRD1442-84-45 06:48:00 Test Item Value Reference Range Interpretation Comments Hct (test code = Hct) 52.0 42.0-54.0 [place] 927472-03-25 06:48:00 Test Item Value Reference Range Interpretation Comments MCV (test code = MCV) 87.5 80.0-94.0 [place] 927472-03-25 06:48:00 Test Item Value Reference Range Interpretation Comments MCH (test code = MCH) 30.2 pg 27.0-31.0 [place] 927472-03-25 06:48:00 Test Item Value Reference Range Interpretation Comments MCHC (test code = MCHC) 34.5 32.0-36.0 [place] 927472-03-25 06:48:00 Test Item Value Reference Range Interpretation Comments RDW (test code = RDW) 15.4 11.5-14.5 [facility]rk[facility]xxXMGPMDHXOJ3358-58-66 06:48:00 Test Item Value Reference Range Interpretation Comments Platelet (test code = Platelet) 414 133-450 [facility] HospitalMuwqnhfHPZHEZTHFM6758-56-35 06:48:00 Test Item Value Reference Range Interpretation Comments MPV (test code = MPV) 8.5 7.4-10.4 [facility] HospitalEschagsSESJDHNNVZ7805-24-61 06:48:00 Test Item Value Reference Range Interpretation Comments PT (test code = PT) 12.9 s 12.0-14.7 [facility]SysrnqqMPCJLTEVQH8984-60-53 06:48:00 Test Item Value Reference Range Interpretation Comments INR (test code = INR) 0.98 1 0.85-1.17 [facility] RenaissanceWwfqhrtTWOBZUUPTE1930-04-77 06:48:00 Test Item Value Reference Range Interpretation Comments PTT (test code = PTT) 31.4 s 22.9-35.8 [facility] [employer] XFTGAJJ1853-87-75 06:48:00 Test Item Value Reference Range Interpretation Comments Antibody Scrn (test Negative (10/06/21 1:48 code = Antibody Scrn) AM) [facility] AAKKGPN7100-27-43 06:48:00 Test Item Value Reference Range Interpretation Comments ABO/Rh (test code = ABO/Rh) AB POS [facility] HospitalGlamdjsIAXRYFZSFE7128-28-92 06:48:00 Test Item Value Reference Range Interpretation Comments Segs (test code = Segs) 70.8 45.0-75.0 [facility] RenaissanceLunxwijFQWRUUBGKS3100-64-10 06:48:00 Test Item Value Reference Range Interpretation Comments Lymphocytes (test code = Lymphocytes) 20.8 20.0-40.0 [facility] RenaissanceMkwipuwTNGMWADSIT7081-98-60 06:48:00 Test Item Value Reference Range Interpretation Comments Monocytes (test code = Monocytes) 5.8 2.0-12.0 [facility] RenaissanceOhrufsiFOGBYTIPUM0427-46-88 06:48:00 Test Item Value Reference Range Interpretation Comments Eosinophils (test code = 2.3 See_Comment [A utomated message] The Eosinophils) system which ge nerated this result tra nsmitted reference range : <=4.0. The reference r boubacar was not used to int erpret this result as normal/abnormal . [facility] PointeXoyepdrWNKFUCCEER5160-62-32 06:48:00 Test Item Value Reference Range Interpretation Comments Basophils (test code = 0.3 See_Comment [Aut omated message] The Basophils) system which ge nerated this result tra nsmitted reference range : <=1.0. The reference r boubacar was not used to int erpret this result as normal/abnormal . [facility] PointeJhdtdqvYHQVVQRTSQ4617-94-95 06:48:00 Test Item Value Reference Range Interpretation Comments Neutrophils # (test code = Neutrophils 8.4 1.5-8.1 #) [place] 927472-03-25 06:48:00 Test Item Value Reference Range Interpretation Comments Lymphocytes # (test code = Lymphocytes 2.5 1.0-5.5 #) [facility] PointeHfqhijkNXWKJQBDFL9274-15-21 06:48:00 Test Item Value Reference Range Interpretation Comments Monocytes # (test code 0.7 See_Comment [Aut omated message] The = Monocytes #) system which generated this result tra nsmitted reference range : <=0.8. The reference r boubacar was not used to int erpret this result as normal/abnormal . [facility] PointeOvaqfrfMJPVSAUYQU9021-28-03 06:48:00 Test Item Value Reference Range Interpretation Comments Eosinophils # (test code 0.3 See_Comment [A utomated message] The = Eosinophils #) system whic h generated this result tra nsmitted reference range : <=0.5. The reference r boubacar was not used to int erpret this result as normal/abnormal . [facility] PointeKhsnnqyZXPHZYAACV1418-23-26 06:48:00 Test Item Value Reference Range Interpretation Comments WBC X 10x3 (test code = WBC X 10x3) 11.9 3.7-10.4 [place] 927472-03-25 06:48:00 Test Item Value Reference Range Interpretation Comments RBC X 10x6 (test code = RBC X 10x6) 5.95 4.70-6.10 [place] 927472-03-25 06:48:00 Test Item Value Reference Range Interpretation Comments Hgb (test code = Hgb) 17.9 14.0-18.0 [place] 927472-03-25 06:48:00 Test Item Value Reference Range Interpretation Comments Hct (test code = Hct) 52.0 42.0-54.0 [place] [address]-03-25 06:48:00 Test Item Value Reference Range Interpretation Comments MCV (test code = MCV) 87.5 80.0-94.0 [facility] PointeMgpxceuQKYHUDEQBG2112-28-86 06:48:00 Test Item Value Reference Range Interpretation Comments MCH (test code = MCH) 30.2 pg 27.0-31.0 [facility] PointeFvxmhckOJWTGQXJIH9556-45-57 06:48:00 Test Item Value Reference Range Interpretation Comments MCHC (test code = MCHC) 34.5 32.0-36.0 [facility] PointeKqpjbnkLOXPZDJJFO2946-79-65 06:48:00 Test Item Value Reference Range Interpretation Comments RDW (test code = RDW) 15.4 11.5-14.5 [facility] RenaissanceOoiwwzhRSIULHJTTC6031-97-05 06:48:00 Test Item Value Reference Range Interpretation Comments Platelet (test code = Platelet) 414 133-450 [facility] PointeBedblxcRWXCIRCAMS3451-69-86 06:48:00 Test Item Value Reference Range Interpretation Comments MPV (test code = MPV) 8.5 7.4-10.4 [facility] PointeSpltlehXWAOFNBKFO5139-21-83 06:48:00 Test Item Value Reference Range Interpretation Comments PT (test code = PT) 12.9 s 12.0-14.7 [facility] RenaissanceJiquqwuURXWSGTKGF5058-53-70 06:48:00 Test Item Value Reference Range Interpretation Comments INR (test code = INR) 0.98 1 0.85-1.17 [facility] PointeZcbtljzCGRZGJLIDW2968-88-75 06:48:00 Test Item Value Reference Range Interpretation Comments PTT (test code = PTT) 31.4 s 22.9-35.8 [facility] [employer] KEWQJQE7261-91-37 06:48:00 Test Item Value Reference Range Interpretation Comments Antibody Scrn (test Negative (10/06/21 1:48 code = Antibody Scrn) AM) [facility] [employer] MPGLUSJ6499-02-06 06:48:00 Test Item Value Reference Range Interpretation Comments ABO/Rh (test code = ABO/Rh) AB POS [facility] RenaissanceAcpvvjcEXGYKEVECR4154-47-85 06:48:00 Test Item Value Reference Range Interpretation Comments Segs (test code = Segs) 70.8 45.0-75.0 [facility] HospitalOkkolzhJYWZYLRNTC1151-05-72 06:48:00 Test Item Value Reference Range Interpretation Comments Lymphocytes (test code = Lymphocytes) 20.8 20.0-40.0 [place] 927472-03-25 06:48:00 Test Item Value Reference Range Interpretation Comments Monocytes (test code = Monocytes) 5.8 2.0-12.0 [place] 927472-03-25 06:48:00 Test Item Value Reference Range Interpretation Comments Eosinophils (test code = 2.3 See_Comment [A utomated message] The Eosinophils) system which ge nerated this result tra nsmitted reference range : <=4.0. The reference r boubacar was not used to int erpret this result as normal/abnormal . [place] 927472-03-25 06:48:00 Test Item Value Reference Range Interpretation Comments Basophils (test code = 0.3 See_Comment [Aut omated message] The Basophils) system which ge nerated this result tra nsmitted reference range : <=1.0. The reference r boubacar was not used to int erpret this result as normal/abnormal . [facility] PointeFphtcwyXQHCPXMPXD5642-20-98 06:48:00 Test Item Value Reference Range Interpretation Comments Neutrophils # (test code = Neutrophils 8.4 1.5-8.1 #) [place] 927472-03-25 06:48:00 Test Item Value Reference Range Interpretation Comments Lymphocytes # (test code = Lymphocytes 2.5 1.0-5.5 #) [place] 927472-03-25 06:48:00 Test Item Value Reference Range Interpretation Comments Monocytes # (test code 0.7 See_Comment [Aut omated message] The = Monocytes #) system which generated this result tra nsmitted reference range : <=0.8. The reference r boubacar was not used to int erpret this result as normal/abnormal . [facility] PointeGzjnyqwLGRZIJOWBK1955-73-00 06:48:00 Test Item Value Reference Range Interpretation Comments Eosinophils # (test code 0.3 See_Comment [A utomated message] The = Eosinophils #) system whic h generated this result tra nsmitted reference range : <=0.5. The reference r boubacar was not used to int erpret this result as normal/abnormal . [facility] PointeXoizuicGPILPSLEHQ6883-18-13 06:48:00 Test Item Value Reference Range Interpretation Comments WBC X 10x3 (test code = WBC X 10x3) 11.9 3.7-10.4 [facility] PointeGjtxnsjBESNJNTTHH2360-22-11 06:48:00 Test Item Value Reference Range Interpretation Comments RBC X 10x6 (test code = RBC X 10x6) 5.95 4.70-6.10 [facility] PointeQnaagfaIXXEVTRRCS9306-66-10 06:48:00 Test Item Value Reference Range Interpretation Comments Hgb (test code = Hgb) 17.9 14.0-18.0 [facility] PointeVupnogoLNHQYMPLTJ8032-14-95 06:48:00 Test Item Value Reference Range Interpretation Comments Hct (test code = Hct) 52.0 42.0-54.0 [facility] PointeNjekkyyXTAOWDQLAN7411-09-28 06:48:00 Test Item Value Reference Range Interpretation Comments MCV (test code = MCV) 87.5 80.0-94.0 [place] 927472-03-25 06:48:00 Test Item Value Reference Range Interpretation Comments MCH (test code = MCH) 30.2 pg 27.0-31.0 [facility] PointeWacbbguMUXJLDYLDC3647-35-24 06:48:00 Test Item Value Reference Range Interpretation Comments MCHC (test code = MCHC) 34.5 32.0-36.0 [facility] PointeGsbtmwjHCLJPMDFQC2393-41-29 06:48:00 Test Item Value Reference Range Interpretation Comments RDW (test code = RDW) 15.4 11.5-14.5 [facility] PointeNdhulcrNHFMHBQRWO6239-58-37 06:48:00 Test Item Value Reference Range Interpretation Comments Platelet (test code = Platelet) 414 133-450 [facility] PointeXjrstchOUJHMCLTGT9959-05-12 06:48:00 Test Item Value Reference Range Interpretation Comments MPV (test code = MPV) 8.5 7.4-10.4 [place] 927472-03-25 06:48:00 Test Item Value Reference Range Interpretation Comments PT (test code = PT) 12.9 s 12.0-14.7 [facility] PointeWgijkhhOXMPRDVAYC0089-49-14 06:48:00 Test Item Value Reference Range Interpretation Comments INR (test code = INR) 0.98 1 0.85-1.17 [place] 927472-03-25 06:48:00 Test Item Value Reference Range Interpretation Comments PTT (test code = PTT) 31.4 s 22.9-35.8 [facility] WITH [id number] 00:23:28 Test Item Value Reference Range Interpretation [...] RDW-SD (test code = 47.6 fL 38.5-51.6 55077-5) RDW-CV (test code = 15.1 % 12.1-15.4 788-0) PLT (test code = See_Comment H [Automated 777-3) message] The sy stem which generated this result transmitted reference range : 150 - 328 10*3/ ?L. The reference r boubacar was not used to interpret this result as normal/abnormal . MPV (test code = 10.5 fL 9.8-13.0 07608-5) NRBC/100 WBC (test See_Comment [Automat ed code = 8724280079) message] The system which generated this result transmitted reference range : 0.0 - 10.0 /100 WBCs. The refer ence range was not u sed to interpret th is result as normal/abnormal . NRBC x10^3 (test code <0.01 See_Comment [Auto mated = 8493820477) message] The s ystem which generated this result transmitted reference range : 10*3/?L. The reference range was not used to interpret this result as normal/abnormal . GRAN MAT (NEUT) % 66.7 % (test code = 770-8) IMM GRAN % (test code 0.40 % = 7023936869) LYMPH % (test code = 24.4 % 736-9) MONO % (test code = 6.6 % 5905-5) EOS % (test code = 1.5 % 713-8) BASO % (test code = 0.4 % 706-2) GRAN MAT x10^3(ANC) 7.43 10*3/uL 1.99-6.95 H (test code = 8895753073) IMM GRAN x10^3 (test 0.04 10*3/uL 0.00-0.06 code = 2745490876) LYMPH x10^3 (test code 2.72 10*3/uL 1.09-3.23 = 731-0) MONO x10^3 (test code 0.74 10*3/uL 0.36-1.02 = 742-7) EOS x10^3 (test code = 0.17 10*3/uL 0.06-0.53 711-2) BASO x10^3 (test code 0.04 10*3/uL 0.01-0.09 = 704-7) Lab Interpretation Abnormal (test code = 47370-2) [facility]. METABOLIC PANEL ([id number])2021-09-29 00:18:07 Test Item Value Reference Range Interpretation Comments NA (test code = 139 mmol/L 135-145 6905758658) K (test code = 4.8 mmol/L 3.5-5.0 1674589131) CL (test code = 104 mmol/L 98-108 1093422084) CO2 TOTAL (test code = 22 mmol/L 23-31 L 8859301139) AGAP (test code = 2-16 4148594927) BUN (test code = 15 mg/dL 7-23 1159377450) GLUCOSE (test code = 93 mg/dL 70-110 1286169198) CREATININE (test code = 0.67 mg/dL 0.60-1.25 7117963576) TOTAL BILI (test code = 0.7 mg/dL 0.1-1.7 9521840553) CALCIUM (test code = 9.8 mg/dL 8.6-10.6 9984742594) T PROTEIN (test code = 8.9 g/dL 6.3-8.2 H 8346530232) ALBUMIN (test code = 4.9 g/dL 3.5-5.0 3915816353) ALK PHOS (test code = 126 U/L 34-122 H 3094887588) ALTv (test code = 43 U/L 5-50 1742-6) AST(SGOT) (test code = 28 U/L 13-40 5731817601) eGFR (test code = mL/min/1.73m2 6203733322) ARPITA (test code = ARPITA) Association of [...] tests). Lab Interpretation Abnormal (test code = 29634-8) [facility]. METABOLIC PANEL ([id number])2021-08-06 12:48:40 Test Item Value Reference Range Interpretation Comments NA (test code = 137 mmol/L 135-145 0728375454) K (test code = 4.5 mmol/L 3.5-5.0 1773712253) CL (test code = 107 mmol/L 98-108 0004992919) CO2 TOTAL (test code = 24 mmol/L 23-31 0252082026) AGAP (test code = 2-16 6842746863) BUN (test code = 16 mg/dL 7-23 2350327716) GLUCOSE (test code = 116 mg/dL 70-110 H 4743613897) CREATININE (test code = 0.62 mg/dL 0.60-1.25 3555519388) TOTAL BILI (test code = 0.4 mg/dL 0.1-1.4 9645461209) CALCIUM (test code = 8.7 mg/dL 8.6-10.6 2885951178) T PROTEIN (test code = 7.5 g/dL 6.3-8.2 0143701438) ALBUMIN (test code = 3.9 g/dL 3.5-5.0 2919445388) ALK PHOS (test code = 93 U/L 34-122 1251410674) ALTv (test code = 40 U/L 5-50 1742-6) AST(SGOT) (test code = 51 U/L 13-40 H 8311683146) eGFR (test code = mL/min/1.73m2 0088318562) ARPITA (test code = ARPITA) Association of [...] tests). Lab Interpretation Abnormal (test code = 36432-9) [facility] WITH [id number] 12:21:36 Test Item Value Reference Range Interpretation Comments WBC (test code = See_Comment [Automated 4064-2) message] The sy stem which generated this result transmitted reference range : 4.20 - 10.70 10*3/?L. The reference range was not used to interpret this result as normal/abnormal . RBC (test code = See_Comment [Automated 919-8) message] The sy stem which generated this [...] RDW-SD (test code = 50.6 fL 38.5-51.6 43951-4) RDW-CV (test code = 15.3 % 12.1-15.4 788-0) PLT (test code = See_Comment H [Automated 997-3) message] The sy stem which generated this result transmitted reference range : 150 - 328 10*3/ ?L. The reference r boubacar was not used to interpret this result as normal/abnormal . MPV (test code = 10.3 fL 9.8-13.0 80739-8) NRBC/100 WBC (test See_Comment [Automat ed code = 4391352511) message] The system which generated this result transmitted reference range : 0.0 - 10.0 /100 WBCs. The refer ence range was not u sed to interpret th is result as normal/abnormal . NRBC x10^3 (test code <0.01 See_Comment [Auto mated = 5117247546) message] The s ystem which generated this result transmitted reference range : 10*3/?L. The reference range was not used to interpret this result as normal/abnormal . GRAN MAT (NEUT) % 61.5 % (test code = 770-8) IMM GRAN % (test code 0.80 % = 6540657047) LYMPH % (test code = 27.8 % 736-9) MONO % (test code = 6.9 % 5905-5) EOS % (test code = 2.4 % 713-8) BASO % (test code = 0.6 % 706-2) GRAN MAT x10^3(ANC) 6.07 10*3/uL 1.99-6.95 (test code = 7736713156) IMM GRAN x10^3 (test 0.08 10*3/uL 0.00-0.06 H code = 8858916912) LYMPH x10^3 (test code 2.75 10*3/uL 1.09-3.23 = 731-0) MONO x10^3 (test code 0.68 10*3/uL 0.36-1.02 = 742-7) EOS x10^3 (test code = 0.24 10*3/uL 0.06-0.53 711-2) BASO x10^3 (test code 0.06 10*3/uL 0.01-0.09 = 704-7) Lab Interpretation Abnormal (test code = 34627-8) [facility] Metabolic Panel (NA, K, CL, CO2, GLUCOSE, BUN, CREATININE, CA)2021-08-04 12:40:30 Test Item Value Reference Range Interpretation Comments NA (test code = 139 mmol/L 135-145 6631516548) K (test code = 3.9 mmol/L 3.5-5.0 8525091340) CL (test code = 108 mmol/L 98-108 8442643981) CO2 TOTAL (test code = 25 mmol/L 23-31 2921237935) AGAP (test code = 2-16 6633661144) BUN (test code = 14 mg/dL 7-23 9805808318) GLUCOSE (test code = 107 mg/dL 70-110 1162068681) CREATININE (test code = 0.61 mg/dL 0.60-1.25 6564445812) CALCIUM (test code = 8.1 mg/dL 8.6-10.6 L 2009290406) eGFR (test code = mL/min/1.73m2 7410390148) ARPITA (test code = ARPITA) Association of [...] tests). Lab Interpretation Abnormal (test code = 06114-9) [facility] with Ccqvekuqlvjj9443-03-74 12:23:51 Test Item Value Reference Range Interpretation [...] RDW-SD (test code = 49.3 fL 38.5-51.6 54560-4) RDW-CV (test code = 15.3 % 12.1-15.4 788-0) PLT (test code = See_Comment H [Automated 777-3) message] The sy stem which generated this result transmitted reference range : 150 - 328 10*3/ ?L. The reference r boubacar was not used to interpret this result as normal/abnormal . MPV (test code = 10.2 fL 9.8-13.0 07530-3) NRBC/100 WBC (test See_Comment [Automat ed code = 6649145148) message] The system which generated this result transmitted reference range : 0.0 - 10.0 /100 WBCs. The refer ence range was not u sed to interpret th is result as normal/abnormal . NRBC x10^3 (test code <0.01 See_Comment [Auto mated = 9402891969) message] The s ystem which generated this result transmitted reference range : 10*3/?L. The reference range was not used to interpret this result as normal/abnormal . GRAN MAT (NEUT) % 56.7 % (test code = 770-8) IMM GRAN % (test code 0.60 % = 9718507197) LYMPH % (test code = 31.1 % 736-9) MONO % (test code = 8.7 % 5905-5) EOS % (test code = 2.4 % 713-8) BASO % (test code = 0.5 % 706-2) GRAN MAT x10^3(ANC) 4.83 10*3/uL 1.99-6.95 (test code = 6134837033) IMM GRAN x10^3 (test 0.05 10*3/uL 0.00-0.06 code = 5122293460) LYMPH x10^3 (test code 2.64 10*3/uL 1.09-3.23 = 731-0) MONO x10^3 (test code 0.74 10*3/uL 0.36-1.02 = 742-7) EOS x10^3 (test code = 0.20 10*3/uL 0.06-0.53 711-2) BASO x10^3 (test code 0.04 10*3/uL 0.01-0.09 = 704-7) Lab Interpretation Abnormal (test code = 35782-0) [facility]. METABOLIC PANEL ([id number])2021-08-03 06:32:14 Test Item Value Reference Range Interpretation Comments NA (test code = 139 mmol/L 135-145 3737613923) K (test code = 4.5 mmol/L 3.5-5.0 0492056245) CL (test code = 102 mmol/L 98-108 9679344202) CO2 TOTAL (test code = 26 mmol/L 23-31 0134960640) AGAP (test code = 2-16 7679048630) BUN (test code = 16 mg/dL 7-23 7505567295) GLUCOSE (test code = 99 mg/dL 70-110 2730639800) CREATININE (test code = 0.83 mg/dL 0.60-1.25 4785919144) TOTAL BILI (test code = 0.6 mg/dL 0.1-1.5 0628815467) CALCIUM (test code = 9.5 mg/dL 8.6-10.6 2010683459) T PROTEIN (test code = 8.6 g/dL 6.3-8.2 H 5614741500) ALBUMIN (test code = 4.6 g/dL 3.5-5.0 2703018018) ALK PHOS (test code = 121 U/L 34-122 3809061534) ALTv (test code = 58 U/L 5-50 H 1742-6) AST(SGOT) (test code = 32 U/L 13-40 9872696811) eGFR (test code = mL/min/1.73m2 1683227468) ARPITA (test code = ARPITA) Association of [...] tests). Lab Interpretation Abnormal (test code = 86912-9) [facility] WITH [id number] 05:48:31 Test Item Value Reference Range Interpretation [...] RDW-SD (test code = 49.1 fL 38.5-51.6 83460-0) RDW-CV (test code = 15.5 % 12.1-15.4 H 788-0) PLT (test code = See_Comment H [Automated 777-3) message] The sy stem which generated this result transmitted reference range : 150 - 328 10*3/ ?L. The reference r boubacar was not used to interpret this result as normal/abnormal . MPV (test code = 10.4 fL 9.8-13.0 50405-5) NRBC/100 WBC (test See_Comment [Automat ed code = 4148314418) message] The system which generated this result transmitted reference range : 0.0 - 10.0 /100 WBCs. The refer ence range was not u sed to interpret th is result as normal/abnormal . NRBC x10^3 (test code <0.01 See_Comment [Auto mated = 7680662774) message] The s ystem which generated this result transmitted reference range : 10*3/?L. The reference range was not used to interpret this result as normal/abnormal . GRAN MAT (NEUT) % 64.8 % (test code = 770-8) IMM GRAN % (test code 0.70 % = 9422137844) LYMPH % (test code = 25.2 % 736-9) MONO % (test code = 6.9 % 5905-5) EOS % (test code = 1.9 % 713-8) BASO % (test code = 0.5 % 706-2) GRAN MAT x10^3(ANC) 7.80 10*3/uL 1.99-6.95 H (test code = 8558091998) IMM GRAN x10^3 (test 0.08 10*3/uL 0.00-0.06 H code = 3670737507) LYMPH x10^3 (test code 3.04 10*3/uL 1.09-3.23 = 731-0) MONO x10^3 (test code 0.83 10*3/uL 0.36-1.02 = 742-7) EOS x10^3 (test code = 0.23 10*3/uL 0.06-0.53 711-2) BASO x10^3 (test code 0.06 10*3/uL 0.01-0.09 = 704-7) Lab Interpretation Abnormal (test code = 93077-3) [facility] (72643[facility]2021-08-01 02:19:08 Test Item Value Reference Range Interpretation Comments NA (test code = 136 mmol/L 135-145 3040707455) K (test code = 4.4 mmol/L 3.5-5.0 3327366133) CL (test code = 99 mmol/L 98-108 0476523491) CO2 TOTAL (test code = 25 mmol/L 23-31 5906270762) AGAP (test code = 2-16 8585805010) BUN (test code = 19 mg/dL 7-23 8466860568) GLUCOSE (test code = 103 mg/dL 70-110 8060810111) CREATININE (test code = 0.70 mg/dL 0.60-1.25 9704779152) TOTAL BILI (test code = 0.7 mg/dL 0.1-1.8 2149255764) CALCIUM (test code = 9.2 mg/dL 8.6-10.6 2786123064) T PROTEIN (test code = 9.4 g/dL 6.3-8.2 H 4621056514) ALBUMIN (test code = 4.8 g/dL 3.5-5.0 5567783048) ALK PHOS (test code = 146 U/L 34-122 H 2278355216) ALTv (test code = 75 U/L 5-50 H 2-6) AST(SGOT) (test code = 37 U/L 13-40 5710608455) eGFR (test code = mL/min/1.73m2 2971130466) ARPITA (test code = ARPITA) Association of [...] tests). Lab Interpretation Abnormal (test code = 26223-1) [facility] Test Item Value Reference Range Interpretation Comments LIPASE (test code = 4343528908) 86 U/L 0-220 Lab Interpretation (test code = Normal 95967-3) [facility] [id number] 01:55:49 Test Item Value Reference Range Interpretation [...] RDW-SD (test code = 48.7 fL 38.5-51.6 66209-2) RDW-CV (test code = 15.4 % 12.1-15.4 788-0) PLT (test code = See_Comment H [Automated 777-3) message] The sy stem which generated this result transmitted reference range : 150 - 328 10*3/ ?L. The reference r boubacar was not used to interpret this result as normal/abnormal . MPV (test code = 9.9 fL 9.8-13.0 78178-9) NRBC/100 WBC (test See_Comment [Automat ed code = 0040861989) message] The system which generated this result transmitted reference range : 0.0 - 10.0 /100 WBCs. The refer ence range was not u sed to interpret th is result as normal/abnormal . NRBC x10^3 (test code <0.01 See_Comment [Auto mated = 6225471638) message] The s ystem which generated this result transmitted reference range : 10*3/?L. The reference range was not used to interpret this result as normal/abnormal . GRAN MAT (NEUT) % 69.8 % (test code = 770-8) IMM GRAN % (test code 0.50 % = 8011923148) LYMPH % (test code = 20.5 % 736-9) MONO % (test code = 6.8 % 5905-5) EOS % (test code = 1.9 % 713-8) BASO % (test code = 0.5 % 706-2) GRAN MAT x10^3(ANC) 7.72 10*3/uL 1.99-6.95 H (test code = 1600687428) IMM GRAN x10^3 (test 0.05 10*3/uL 0.00-0.06 code = 0944154042) LYMPH x10^3 (test code 2.26 10*3/uL 1.09-3.23 = 731-0) MONO x10^3 (test code 0.75 10*3/uL 0.36-1.02 = 742-7) EOS x10^3 (test code = 0.21 10*3/uL 0.06-0.53 711-2) BASO x10^3 (test code 0.06 10*3/uL 0.01-0.09 = 704-7) Lab Interpretation Abnormal (test code = 73174-0) [id number] 23:33:52 Test Item Value Reference Interpretation Comments Range D-DIMER (test code = See_Comment [Autom ated 1947419151) message] The system which generated this result [...] diagnosis. Lab Interpretation Normal (test code = 72739-6) [facility]. METABOLIC PANEL (55264)2021-07-29 22:42:48 Test Item Value Reference Range Interpretation Comments NA (test code = 135 mmol/L 135-145 3760119478) K (test code = 4.6 mmol/L 3.5-5.0 7317904444) CL (test code = 102 mmol/L 98-108 4815080402) CO2 TOTAL (test code = 24 mmol/L 23-31 4340128157) AGAP (test code = 2-16 2883275916) BUN (test code = 17 mg/dL 7-23 6391781128) GLUCOSE (test code = 107 mg/dL 70-110 2120512526) CREATININE (test code = 0.60 mg/dL 0.60-1.25 1801166682) TOTAL BILI (test code = 1.0 mg/dL 0.1-1.5 1669079669) CALCIUM (test code = 9.4 mg/dL 8.6-10.6 3119557780) T PROTEIN (test code = 8.6 g/dL 6.3-8.2 H 6665478157) ALBUMIN (test code = 4.6 g/dL 3.5-5.0 4890860997) ALK PHOS (test code = 159 U/L 34-122 H 0829121207) ALTv (test code = 77 U/L 5-50 H 1742-6) AST(SGOT) (test code = 38 U/L 13-40 5980549491) eGFR (test code = mL/min/1.73m2 5171190782) ARPITA (test code = ARPITA) Association of [...] tests). Lab Interpretation Abnormal (test code = 68660-2) [facility] WITH [id number] 22:30:27 Test Item Value Reference Range Interpretation [...] RDW-SD (test code = 48.0 fL 38.5-51.6 52247-6) RDW-CV (test code = 15.1 % 12.1-15.4 788-0) PLT (test code = See_Comment H [Automated 777-3) message] The system which generated this result transmit lester reference range : 150 - 328 10*3/ ?L. The reference range was not u sed to interpret th is result as normal/abnormal . MPV (test code = 10.3 fL 9.8-13.0 95264-0) NRBC/100 WBC (test See_Comment [Automat ed code = 8900367381) message] The system which generated this result transmit lester reference range : 0.0 - 10.0 /100 WBCs. The reference range was not used to interpret this result as normal/abnormal . NRBC x10^3 (test code <0.01 See_Comment [Auto mated = 4185124981) message] The system which generated this result transmit lester reference range : 10*3/?L. The reference range was not used to interpret this result as normal/abnormal . GRAN MAT (NEUT) % 79.9 % (test code = 770-8) IMM GRAN % (test code 0.50 % = 4548172241) LYMPH % (test code = 11.8 % 736-9) MONO % (test code = 6.6 % 5905-5) EOS % (test code = 0.9 % 713-8) BASO % (test code = 0.3 % 706-2) GRAN MAT x10^3(ANC) 10.70 10*3/uL 1.99-6.95 H (test code = 7475036507) IMM GRAN x10^3 (test 0.07 10*3/uL 0.00-0.06 H code = 8105829554) LYMPH x10^3 (test code 1.58 10*3/uL 1.09-3.23 = 731-0) MONO x10^3 (test code 0.89 10*3/uL 0.36-1.02 = 742-7) EOS x10^3 (test code = 0.12 10*3/uL 0.06-0.53 711-2) BASO x10^3 (test code 0.04 10*3/uL 0.01-0.09 = 704-7) Lab Interpretation Abnormal (test code = 35866-0) [facility] (37222[facility]21-[facility]-07 23:02:15 Test Item Value Reference Range Interpretation Comments NA (test code = 137 mmol/L 135-145 3447049027) K (test code = 4.5 mmol/L 3.5-5.0 7539619849) CL (test code = 109 mmol/L 98-108 H 2068431835) CO2 TOTAL (test code = 22 mmol/L 23-31 L 7079838799) AGAP (test code = 2-16 8391821742) BUN (test code = 7 mg/dL 7-23 6690148747) GLUCOSE (test code = 87 mg/dL 70-110 6479755578) CREATININE (test code = 0.61 mg/dL 0.60-1.25 9232720413) TOTAL BILI (test code = 0.5 mg/dL 0.1-1.1 1562365180) CALCIUM (test code = 9.0 mg/dL 8.6-10.6 0518984697) T PROTEIN (test code = 6.9 g/dL 6.3-8.2 6658646447) ALBUMIN (test code = 3.5 g/dL 3.5-5.0 1622347022) ALK PHOS (test code = 112 U/L 34-122 0070463926) ALTv (test code = 35 U/L 5-50 1742-6) AST(SGOT) (test code = 21 U/L 13-40 3574125209) eGFR (test code = mL/min/1.73m2 9150757268) ARPITA (test code = ARPITA) Association of [...] tests). Lab Interpretation Abnormal (test code = 64057-7) [facility] WITH [id number] 22:51:57 Test Item Value Reference Range Interpretation Comments WBC (test code = See_Comment H [Automated 0190-2) message] The sy stem which generated this result transmitted reference range : 4.20 - 10.70 10*3/?L. The reference range was not used to interpret this result as normal/abnormal . RBC (test code = See_Comment [Automated 669-8) message] The sy stem which generated this [...] RDW-SD (test code = 42.4 fL 38.5-51.6 38593-0) RDW-CV (test code = 13.6 % 12.1-15.4 788-0) PLT (test code = See_Comment H [Automated 777-3) message] The sy stem which generated this result transmitted reference range : 150 - 328 10*3/ ?L. The reference r boubacar was not used to interpret this result as normal/abnormal . MPV (test code = 9.4 fL 9.8-13.0 L 65764-0) NRBC/100 WBC (test See_Comment [Automat ed code = 1653079783) message] The system which generated this result transmitted reference range : 0.0 - 10.0 /100 WBCs. The refer ence range was not u sed to interpret th is result as normal/abnormal . NRBC x10^3 (test code <0.01 See_Comment [Auto mated = 2876923899) message] The s ystem which generated this result transmitted reference range : 10*3/?L. The reference range was not used to interpret this result as normal/abnormal . GRAN MAT (NEUT) % 76.4 % (test code = 770-8) IMM GRAN % (test code 0.40 % = 2611606235) LYMPH % (test code = 16.3 % 736-9) MONO % (test code = 5.6 % 5905-5) EOS % (test code = 1.0 % 713-8) BASO % (test code = 0.3 % 706-2) GRAN MAT x10^3(ANC) 8.81 10*3/uL 1.99-6.95 H (test code = 6362417834) IMM GRAN x10^3 (test 0.05 10*3/uL 0.00-0.06 code = 6812280224) LYMPH x10^3 (test code 1.88 10*3/uL 1.09-3.23 = 731-0) MONO x10^3 (test code 0.64 10*3/uL 0.36-1.02 = 742-7) EOS x10^3 (test code = 0.12 10*3/uL 0.06-0.53 711-2) BASO x10^3 (test code 0.03 10*3/uL 0.01-0.09 = 704-7) Lab Interpretation Abnormal (test code = 83288-2) [facility]ID [facility]2020-11-21 01:01:33 Test Item Value Reference Range Interpretation Comments SARS-CoV-2 Rapid ID NOW Not Detected Not Detected (test code = 07684-4) ARPITA (test code = ARPITA) ID NOW COVID-19 Assay is an isothermal nucleic acid amplification test intended for the qualitative detection of nucleic acid from SARS-CoV-2 viral RNA in nasopharyngeal ([employer]AGE [employer]LECT[employer]) specimens. It is used under Emergency Use [...] indicated. Lab Interpretation Normal (test code = 61455-1) [facility]. METABOLIC PANEL (14166)2020-11-21 01:00:33 Test Item Value Reference Range Interpretation Comments NA (test code = 140 mmol/L 135-145 3012585745) K (test code = 4.4 mmol/L 3.5-5.0 2432675905) CL (test code = 103 mmol/L 98-108 5622127557) CO2 TOTAL (test code = 28 mmol/L 23-31 0859733525) AGAP (test code = 2-16 7752480093) BUN (test code = 15 mg/dL 7-23 4678302713) GLUCOSE (test code = 85 mg/dL 70-110 6222261937) CREATININE (test code = 0.60 mg/dL 0.60-1.25 1575959594) TOTAL BILI (test code = 1.1 mg/dL 0.1-1.7 2312414311) CALCIUM (test code = 9.0 mg/dL 8.6-10.6 9107854125) T PROTEIN (test code = 7.8 g/dL 6.3-8.2 2463818348) ALBUMIN (test code = 4.0 g/dL 3.5-5.0 0672752980) ALK PHOS (test code = 166 U/L 34-122 H 8502800145) ALTv (test code = 42 U/L 1742-6) AST(SGOT) (test code = 32 U/L 1340 7201032978) eGFR (test code = mL/min/1.73m2 8496433425) ARPITA (test code = ARPITA) Association of [...] tests). Lab Interpretation Abnormal (test code = 65640-1) [facility]13 Test Item Value Reference Range Interpretation Comments LIPASE (test code = 4791604870) 57 U/L 0-220 Lab Interpretation (test code = Normal 32385-7) [facility] 00:51:55 Test Item Value Reference Range Interpretation Comments APPEARANCE (test code = Turbid Clear A 8552325859) COLOR (test code = Yellow Yellow 5930101534) PH (test code = 4.8-8.0 1607732773) SP GRAVITY (test code = 1.003-1.030 5055822783) GLU U QUAL (test code = Normal Normal 5098480722) BLOOD (test code = 1+ Negative A 3315813729) KETONES (test code = 20 mg/dL Negative A 5538879622) PROTEIN (test code = 100 mg/dL Negative A 2887-8) UROBILIN (test code = 2.0 mg/dL Normal A 5310325764) BILIRUBIN (test code = Negative Negative 6674563206) NITRITE (test code = Positive Negative A 5455810968) LEUK CHAD (test code = 250/uL Negative A 8976579517) RBC/HPF (test code = See_Comment H [Autom ated message] 6099595758) The system [employer] generated this result transmit lester reference range : 0 - 3 HPF. The refe rence range was not u sed to interpret th is result as normal/abnormal . WBC/HPF (test code = >182 See_Comment H [Autom ated message] 8286760183) The system [employer] generated this result transmit lester reference range : 0 - 5 HPF. The refe rence range was not u sed to interpret th is result as normal/abnormal . BACTERIA (test code = Many Negative A 6036034376) MUCOUS (test code = Moderate Negative LPF A 8972138475) WBC CLUMPS (test code = See_Comment H [Au tomated message] 7780695074) The system [employer] generated this result transmit lester reference range : <=1 HPF. The refere nce range was not u sed to interpret th is result as normal/abnormal . Lab Interpretation (test Abnormal code = 93609-1) [facility] WITH [id number] 00:46:14 Test Item Value Reference Range Interpretation Comments WBC (test code = See_Comment [Automated 7190-2) message] The sy stem which generated this [...] RDW-SD (test code = 47.6 fL 38.5-51.6 87857-5) RDW-CV (test code = 15.2 % 12.1-15.4 788-0) PLT (test code = See_Comment H [Automated 777-3) message] The sy stem which generated this result transmitted reference range : 150 - 328 10*3/ ?L. The reference r boubacar was not used to interpret this result as normal/abnormal . MPV (test code = 9.4 fL 9.8-13.0 L 93049-8) NRBC/100 WBC (test See_Comment [Automat ed code = 8182349407) message] The system which generated this result transmitted reference range : 0.0 - 10.0 /100 WBCs. The refer ence range was not u sed to interpret th is result as normal/abnormal . NRBC x10^3 (test code <0.01 See_Comment [Auto mated = 9592013142) message] The s ystem which generated this result transmitted reference range : 10*3/?L. The reference range was not used to interpret this result as normal/abnormal . GRAN MAT (NEUT) % 61.3 % (test code = 770-8) IMM GRAN % (test code 0.70 % = 7167516039) LYMPH % (test code = 26.4 % 736-9) MONO % (test code = 9.9 % 5905-5) EOS % (test code = 1.3 % 713-8) BASO % (test code = 0.4 % 706-2) GRAN MAT x10^3(ANC) 6.39 10*3/uL 1.99-6.95 (test code = 8114693951) IMM GRAN x10^3 (test 0.07 10*3/uL 0.00-0.06 H code = 7810578856) LYMPH x10^3 (test code 2.75 10*3/uL 1.09-3.23 = 731-0) MONO x10^3 (test code 1.03 10*3/uL 0.36-1.02 H = 742-7) EOS x10^3 (test code = 0.14 10*3/uL 0.06-0.53 711-2) BASO x10^3 (test code 0.04 10*3/uL 0.01-0.09 = 704-7) Lab Interpretation Abnormal (test code = 37550-8) [facility] [id number] 13:03:00 Test Item Value Reference Range Interpretation Comments POC-GLUCOSE METER 140 mg/dL 70-110 H : TESTED A T [facility] 6720 (BEAKER) (test code = [facility], [facility]) [address]: Assistant Professor Of Theater/Techni rose ID = [id number] for VERO ANDRE, AARON POCT-GLUCOSE [id number] 09:15:00 Test Item Value Reference Range Interpretation Comments POC-GLUCOSE METER 142 mg/dL 70-110 H : TESTED A T [facility] 67[address] (BEAKER) (test code = [facility], [facility]) 39148: Assistant Professor Of Theater/Techni rose ID = [id number] for VERO ANDRE, AARON POCT-GLUCOSE [id number] 20:56:00 Test Item Value Reference Range Interpretation Comments POC-GLUCOSE METER 134 mg/dL 70-110 H : TESTED A T [facility] 67[address] (BEAKER) (test code = [facility], 153) 39218: Assistant Professor Of Theater/Techni rose ID = [id number] for ADDY BARTON TIA POCT-GLUCOSE [id number] 16:46:00 Test Item Value Reference Range Interpretation Comments POC-GLUCOSE METER 91 mg/dL 70-110 : TESTED A T [facility] 67[address] (BEAKER) (test code = [facility], 153) 29917: Assistant Professor Of Theater/Techni rose ID = [id number] for AKILA DO, AARON POCT-GLUCOSE [id number] 12:19:00 Test Item Value Reference Range Interpretation Comments POC-GLUCOSE METER 237 mg/dL 70-110 H : TESTED A Suzanne [facility] (FELICIANO) (test code = [facility], 1538) 99533: Assistant Professor Of Theater/Techni rose ID = [id number] for AARON COTTRELL MR, EXTREMITY, LOWER, WITHOUT CONTRAST, [id number] 09:12:00FINAL REPORT MRI of the right and [...] Garza Verified Date/Time: 07/29/2019 09:12:01 Reading Location: [facility] C013X Ortho Consult Reading Room MR, EXTREMITY, LOWER, WITHOUT CONTRAST, [id number] 09:12:00FINAL REPORT MRI of the right and [...] Garza Verified Date/Time: 07/29/2019 09:12:01 Reading Location: [address] Ortho Consult Reading Room POCT-GLUCOSE [id number] 08:47:00 Test Item Value Reference Range Interpretation Comments POC-GLUCOSE METER 264 mg/dL 70-110 H : TESTED A Suzanne [facility] [address] (SAMMYBASHIR) (test code = [facility], 1538) [address]34[address]: Assistant Professor Of Theater/Techni rose ID = [id number] for AARON COTTRELL ISLET CELL AB [id number] 07:43:00 Test Item Value Reference Range Interpretation Comments ISLET CELL AB Refer to individual AUTOVERIFICATION (test Islet Cell Ab code = 2556) and/or Islet Cell Ab Titer results. POCT-GLUCOSE [id number] 21:27:00 Test Item Value Reference Range Interpretation Comments POC-GLUCOSE METER 130 mg/dL 70-110 H : TESTED A T [facility] [address] ([facility]) (test code = [facility], 1537) 73690: Assistant Professor Of Theater/Techni rose ID = [id number] for FERNIE APARICIO BLOOD [id number] 13:00:00 Test Item Value Reference Range Interpretation Comments CULTURE (BEAKER) (test No growth in 5 days code = 1095) BLOOD [id number] 13:00:00 Test Item Value Reference Range Interpretation Comments CULTURE (BEAKER) (test No growth in 5 days code = 1095) POCT-GLUCOSE [id number] 12:57:00 Test Item Value Reference Range Interpretation Comments POC-GLUCOSE METER 138 mg/dL 70-110 H : TESTED A T [facility] 67[address] ([facility]) (test code = [facility], 1537) 91334: Assistant Professor Of Theater/Techni rose ID = [id number] for [place] LLIS, JUAN ANTONIO POCT-GLUCOSE [id number] 08:43:00 Test Item Value Reference Range Interpretation Comments POC-GLUCOSE METER 226 mg/dL 70-110 H : TESTED A T [facility] [address] ([facility]) (test code = [facility], 1537) 91973: Assistant Professor Of Theater/Techni rose ID = [id number] for [place] LLIS, JUAN ANTONIO POCT-GLUCOSE [id number] 21:11:00 Test Item Value Reference Range Interpretation Comments POC-GLUCOSE METER 254 mg/dL 70-110 H : Notified RN/MD: ([facility]) (test code = TESTED AT [facility] [address] 1537) [facility], [address]: Assistant Professor Of Theater/Techni rose ID = [id number] for FERNIE APARICIO POCT-GLUCOSE [id number] 21:02:00 Test Item Value Reference Range Interpretation Comments POC-GLUCOSE METER 177 mg/dL 70-110 H : [facility] (test code = [facility], 153) 59688: Assistant Professor Of Theater/Techni rose ID = [id number] for [place] LLIS, JUAN ANTONIO POCT-GLUCOSE [id number] 12:31:00 Test Item Value Reference Range Interpretation Comments POC-GLUCOSE METER 215 mg/dL 70-110 H : TESTED A T [facility] [address] (BEAKER) (test code = [facility], 1538) 50444: Assistant Professor Of Theater/Techni rose ID = [id number] for [place] LLIS, JUAN ANTONIO WOUND CULTURE + GRAM [id number] 10:10:00 Test Item Value Reference Interpretation Comments [...] gram negative (BEAKER) (test code = rods 022956) GRAM STAIN RESULT 2+ gram positive (BEAKER) (test code = rods 987643) GRAM STAIN RESULT <1+ gram negative (BEAKER) (test code = coccobacilli 995932) GRAM STAIN RESULT 2+ gram positive (BEAKER) (test code = cocci in pairs 089232) POCT-GLUCOSE [id number] 08:52:00 Test Item Value Reference Range Interpretation Comments POC-GLUCOSE METER 209 mg/dL 70-110 H : TESTED A T [facility] 67[address] (BEAKER) (test code = [facility], 153) 05957: Assistant Professor Of Theater/Techni rose ID = [id number] for [place] ANGELINA, JUAN ANTONIO POCT-GLUCOSE [id number] 21:26:00 Test Item Value Reference Range Interpretation Comments POC-GLUCOSE METER 255 mg/dL 70-110 H : TESTED A T [facility] 6720 (BEAKER) (test code = [facility], 153) 02410: Assistant Professor Of Theater/Techni rose ID = [id number] for MG LANZA POCT-GLUCOSE [id number] 17:34:00 Test Item Value Reference Range Interpretation Comments POC-GLUCOSE METER 227 mg/dL 70-110 H : TESTED A T [facility] 67[address] (BEAKER) (test code = [facility], 153) 75862: Assistant Professor Of Theater/Techni rose ID = [id number] for CHAVEZ CIARA, LETI POCT-GLUCOSE [id number] 11:28:00 Test Item Value Reference Range Interpretation Comments POC-GLUCOSE METER 282 mg/dL 70-110 H : TESTED A T [facility] 67[address] (BEAKER) (test code = [facility], 153) 26886: Assistant Professor Of Theater/Techni rose ID = [id number] for LETI SOUSA POCT-GLUCOSE [id number] 08:19:00 Test Item Value Reference Range Interpretation Comments POC-GLUCOSE METER 329 mg/dL 70-110 H : TESTED A T [facility] 67[address] ([facility]) (test code = [facility], 1538) 89009: Assistant Professor Of Theater/Techni rose ID = [id number] for AARON COTTRELL POCT-GLUCOSE [id number] 21:32:00 Test Item Value Reference Range Interpretation Comments POC-GLUCOSE METER 275 mg/dL 70-110 H : TESTED A T [facility] ([facility]) (test code = [facility], 153) 10304: Assistant Professor Of Theater/Techni rose ID = [id number] for MG LANZA POCT-GLUCOSE [id number] 17:47:00 Test Item Value Reference Range Interpretation Comments POC-GLUCOSE METER 304 mg/dL 70-110 H : [facility] A T [facility] (test code = [facility], 153) [id number]: Assistant Professor Of Theater/Techni rose ID = [id number] for MA JOHNNIE, ERIN URINE [id number] 15:21:00 Test Item Value Reference Range Interpretation Comments [facility] A >100,000 co l/mL (test code = 1095) Beta-hemo lytic streptococcus g roup B, by serologic al grouping CULTURE ([facility]) PROTEUS A 80-89,000 c ol/mL (test code [...] Tobramycin (test code R = 25) POCT-GLUCOSE [id number] 12:16:00 Test Item Value Reference Range Interpretation Comments POC-GLUCOSE METER 337 mg/dL 70-110 H : TESTED A T [facility] ([facility]) (test code = [facility], 1538) 28260: Assistant Professor Of Theater/Techni rose ID = [id number] for ERIN ARIZMENDI BASIC METABOLIC [id number] 10:39:00 Test Item Value Reference Range Interpretation [...] S NOT APPLICABLE FOR DIALYSIS PATIEN TS. Assistant Professor Of Theater ID - JANET FPOCT-GLUCOSE [id number] 08:29:00 Test Item Value Reference Range Interpretation Comments POC-GLUCOSE METER 395 mg/dL 70-110 H : TESTED A T [facility] ([facility]) (test code = [facility], 1538) [id number]: Assistant Professor Of Theater/Techni rose ID = [id number] for ERIN ARIZMENDI CBC W/PLT COUNT & AUTO [id number] 06:40:00 Test Item Value Reference Range Interpretation [...] PERCENT ([facility]) (test code = 2801) POCT-GLUCOSE [id number] 19:55:00 Test Item Value Reference Range Interpretation Comments POC-GLUCOSE METER 369 mg/dL 70-110 H : TESTED A T [facility] 6720 (BEAKER) (test code = [facility], 1538) [address]: Assistant Professor Of Theater/Techni rose ID = [id number] for MG LANZA POCT-GLUCOSE [id number] 16:45:00 Test Item Value Reference Range Interpretation Comments POC-GLUCOSE METER 272 mg/dL 70-110 H : TESTED A T [facility] 6720 (BEAKER) (test code = [facility], 1538) 8[address]: Assistant Professor Of Theater/Techni rose ID = [id number] for FRIEDA PALOMINO POCT-GLUCOSE [id number] 11:40:00 Test Item Value Reference Range Interpretation Comments POC-GLUCOSE METER 277 mg/dL 70-110 H : TESTED A T [facility] 6720 (BEAKER) (test code = [facility], 1538) [address]: Assistant Professor Of Theater/Techni rose ID = [id number] for FRIEDA PALOMINO BASIC METABOLIC [id number] 10:22:00 Test Item Value Reference Range Interpretation [...] S NOT APPLICABLE FOR DIALYSIS PATIEN TS. Assistant Professor Of Theater ID - NTPLIPID [id number] 10:17:00 Test Item Value Reference Range Interpretation [...] Borderline 130-159 High 160-189 Very High >=190 Assistant Professor Of Theater ID - NTPPOCT-GLUCOSE METER 2019-07-24 08:28:00 Test Item Value Reference Range Interpretation Comments POC-GLUCOSE METER 388 mg/dL 70-110 H : TESTED A T [facility] 6720 (BEAKER) (test code = [place], 1538) [address]: Assistant Professor Of Theater/Techni rose ID = [id number] for AARON COTTRELL HEMOGLOBIN [id number] 07:54:00 Test Item Value Reference Range Interpretation Comments HEMOGLOBIN A1C (BEAKER) (test code = 10.4 % 4.3-6.1 H 368) CBC W/PLT COUNT & AUTO [id number] 05:56:00 Test Item Value Reference Range Interpretation [...] PERCENT (BEAKER) (test code = 2801) POCT-GLUCOSE [id number] 23:47:00 Test Item Value Reference Range Interpretation Comments POC-GLUCOSE METER 359 mg/dL 70-110 H : Notified RN/MD: ([facility]) (test code = TESTED AT [place] [address] 153) [facility], 1000[address]: Assistant Professor Of Theater/Techni rose ID = [id number] for LATHBRIDGE, MICHELINE ICE POCT-GLUCOSE [id number] 21:13:00 Test Item Value Reference Range Interpretation Comments POC-GLUCOSE METER 315 mg/dL 70-110 H : TESTED A T [place] [address] ([facility]) (test code = [facility], 153) [address]: Assistant Professor Of Theater/Techni rose ID = [id number] for Sm ith, Ana POCT-GLUCOSE [id number] 21:13:00 Test Item Value Reference Range Interpretation Comments POC-GLUCOSE METER 331 mg/dL 70-110 H : TESTED A T [facility] 6720 (BEAKER) (test code = [place], 1538) [address]: Assistant Professor Of Theater/Techni rose ID = [id number] for JERRICA GONZALEZ POCT-GLUCOSE [id number] 10:30:00 Test Item Value Reference Range Interpretation Comments POC-GLUCOSE METER 341 mg/dL 70-110 H : TESTED A T [facility] 6720 (BEAKER) (test code = [place], 1538) [address]: Assistant Professor Of Theater/Techni rose ID = [id number] for Ana Porter CBC W/PLT COUNT & AUTO [id number] 08:48:00 Test Item Value Reference Range Interpretation [...] (BEAKER) (test code = Present 1371) HEMOGLOBIN [id number] 06:39:00 Test Item Value Reference Range Interpretation Comments HEMOGLOBIN A1C (BEAKER) (test code = 10.5 % 4.3-6.1 H 368) LIPID [id number] 04:57:00 Test Item Value Reference Range Interpretation [...] Optimal <100 Near Optimal 100-129 Borderline 130-159 [id number] Very High >=190 Specimen moderately lipemic BASIC METABOLIC [id number] 04:56:00 Test Item Value Reference Range Interpretation [...] NOT APPLICABLE FOR DIALYSIS PATIEN TS. POCT-GLUCOSE [id number] 21:53:00 Test Item Value Reference Range Interpretation Comments POC-GLUCOSE METER > mg/dL 70-110 HH : Notified RN/MD: TESTED (BEAKER) (test code = AT [facility] 6720 [facility] 1538) [facility], 7[address]: Assistant Professor Of Theater/Techni rose ID = [id number] for DESIRAE MENDOZA U/S, ABDOMINAL, [id number] 19:54:00Reason for exam:->Evaluation of DIGITAL CONTENT PRODUCER shunt and for possible cyst or pseudocyst Should this be performed at the bedside?->YesFINAL REPORT Limited abdominal ultrasound. 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 COMPARISON STUDY: None available. FINDINGS: Sonographic assessment of the abdomen was performed assessing for fluid in the region of the patient's shunts. No fluid collections are seen. However, the study is limited by the patient's body habitus. CT scan would be more sensitive. Signed: Óscar Mileseport Verified Date/Time: 07/22/2019 19:54:10 Reading Location: [facility] B1 C013W Consult Reading Room POCT-GLUCOSE [id number] 19:34:00 Test Item Value Reference Range Interpretation Comments POC-GLUCOSE METER 474 mg/dL 70-110 HH : Notified RN/MD: (BEAKER) (test code = TESTED AT [facility] 4638 4966) [facility], [address]: Assistant Professor Of Theater/Techni rose ID = [id number] for MARILYNN MAO URINALYSIS W/ REFLEX URINE [id number] 17:48:00 Test Item Value Reference Range Interpretation [...] = Moderate 517) SOURCE(BEAKER) (test code = 2791) CBC W/PLT COUNT & AUTO [id number] 17:38:00 Test Item Value Reference Range Interpretation [...] 3438) Received comment: User comments: Slide comments:POCT-GLUCOSE [id number] 16:27:00 Test Item Value Reference Range Interpretation Comments POC-GLUCOSE METER 424 mg/dL 70-110 HH : Notified RN/MD: (BEAKER) (test code = TESTED AT [facility] 6720 1538) [facility], [address]: Assistant Professor Of Theater/Techni rose ID = [id number] for MARILYNN MAO CT, BRAIN, WITHOUT [id number] 15:31:00FINAL REPORT CT, BRAIN, WITHOUT CONTRAST CLINICAL [...] MDReport Verified Date/Time: 07/22/2019 15:31:08 Reading Location: [facility] C013V Neuro Reading Room RAD, SHUNT [id number] 15:13:00Reason for exam:->concern for VPS malfunctionFINAL REPORT [...] Plasencia Verified Date/Time: 07/22/2019 15:13:54 Reading Location: [facility] Radiology Reading Room POCT-GLUCOSE [id number] 11:38:00 Test Item Value Reference Range Interpretation Comments POC-GLUCOSE METER 394 mg/dL 70-110 H : TESTED A T [facility] 6720 ([employer]) (test code = MELLYERNESTINA Adriano [facility], 1538) [address]: Assistant Professor Of Theater/Techni rose ID = [id number] for MARILYNN MAO HEMOGLOBIN [id number] 09:15:00 Test Item Value Reference Range Interpretation Comments HEMOGLOBIN A1C ([employer]) (test code = 10.4 % 4.3-6.1 H 368) TSH/FREE T4 IF [id number] 07:54:00 Test Item Value Reference Range Interpretation Comments THYROID STIMULATING HORMONE 1.40 uIU/mL 0.35-4.94 (FELICIANO) (test code = 772) POCT-GLUCOSE [id number] 07:48:00 Test Item Value Reference Range Interpretation Comments POC-GLUCOSE METER > mg/dL 70-110 HH : Notified RN/MD: TESTED (BEAKER) (test code = AT [facility] 6720 [facility] 1536) [place], [address]: Assistant Professor Of Theater/Techni rose ID = [id number] for MARILYNN SMITH BASIC METABOLIC [id number] 07:44:00 Test Item Value Reference Range Interpretation [...] NOT APPLICABLE FOR DIALYSIS PATIEN TS. LIPID [id number] 07:34:00 Test Item Value Reference Range Interpretation [...] Optimal <100 Near Optimal 100-129 Borderline 130-159 [id number] Very High >=190POCT-GLUCOSE [id number] 00:49:00 Test Item Value Reference Range Interpretation Comments POC-GLUCOSE METER 399 mg/dL 70-110 H : TESTED A T [facility] 6720 (FELICIANO) (test code = [place], 1538) [address]: Assistant Professor Of Theater/Techni rose ID = [id number] for CHERYLE LINDA RAD, FOOT, 2 VIEWS, [id number] 22:28:00Reason for exam:->osteomyletitis FINAL REPORT TECHNIQUE: Two [...] osteomyelitis, recommend MRI with contrast. Signed: Andrew Cardenasort Verified Date/Time: 07/21/2019 22:28:25 Reading Location: [address] Consult Reading Room RAD, FOOT, 2 VIEWS, [id number] 22:28:00Reason for exam:->osteomyletitsFINAL REPORT TECHNIQUE: Two views [...] recommend MRI with contrast. Signed: Andrew Cardenas MDRmorisort Verified Date/Time: 07/21/2019 22:28:25 Reading Location: [facility] C013 Consult Reading Room Electronically signed by: ANDREW CARDENAS DO 07/21/2019 10:28 PMPOCT-GLUCOSE [id number] 21:04:00 Test Item Value Reference Range Interpretation Comments POC-GLUCOSE METER 430 mg/dL 70-110 HH : Notified RN/MD: (FELICIANO) (test code = TESTED AT [facility] 0523 0803) [facility], [address]: Assistant Professor Of Theater/Techni rose ID = [id number] for ALBERTO OLIVER ERTAPENEM:SUSC:PT:ISOLATE:ORDQN:[id number] 16:48:00 Test Item Value Reference Range Interpretation Comments Culture: Urine (test >100,000 CFU/mL Proteus code = Culture: mirabilis 10,000 - Urine) 50,000 CFU/mL Skin [facility]:SUSC:PT:ISOLATE:ORDQN:[id number] 16:48:00 Test Item Value Reference Range Interpretation Comments Proteus mirabilis (test Proteus mirabilis code = Proteus mirabilis) [facility] AND [id number] 16:48:00 Test Item Value Reference Range Interpretation Comments UA Nitrite (test code Negative (05/22/18 10:48 = UA Nitrite) AM) [facility] AND [id number] 16:48:00 Test Item Value Reference Range Interpretation Comments UA Bili (test code = Negative *NA*(05/22/18 UA Bili) 10:48 AM) [facility] AND [id number] 16:48:00 Test Item Value Reference Range Interpretation Comments UA Ketones (test code Negative *NA*(05/22/18 = UA Ketones) 10:48 AM) [facility] AND [id number] 16:48:00 Test Item Value Reference Range Interpretation Comments UA Blood (test code = Trace *ABN*(05/22/18 UA Blood) 10:48 AM) [facility] [id number] 16:48:00 Test Item Value Reference Range Interpretation Comments UA Urobilinogen (test code = UA 0.2 0.1-1.0 Urobilinogen) [facility] [id number] 16:48:00 Test Item Value Reference Range Interpretation Comments UA Leuk Est (test code Large *ABN*(05/22/18 = UA Leuk Est) 10:48 AM) [facility] AND [id number] 16:48:00 Test Item Value Reference Range Interpretation Comments UA Protein (test code Negative (05/22/18 10:48 = UA Protein) AM) [facility] AND [id number] 16:48:00 Test Item Value Reference Range Interpretation Comments UA Glucose (test code Negative (05/22/18 10:48 = UA Glucose) AM) [facility] AND [id number] 16:48:00 Test Item Value Reference Range Interpretation Comments UA pH (test code = UA pH) 7.0 1 5.0-8.0 [facility] AND [id number] 16:48:00 Test Item Value Reference Range Interpretation Comments UA Spec Grav (test code = UA Spec 1.015 1 Grav) [facility] AND [id number] 16:48:00 Test Item Value Reference Range Interpretation Comments UA Color (test code = Yellow *NA*(05/22/18 UA Color) 10:48 AM) [facility] AND [id number] 16:48:00 Test Item Value Reference Range Interpretation Comments UA Turbidity (test code = Clear (05/22/18 10:48 UA Turbidity) AM) [facility] AND [id number] 16:48:00 Test Item Value Reference Range Interpretation Comments UA Mucus (test code = UA Mucus) Few /LPF [facility] AND [id number] 16:48:00 Test Item Value Reference Range Interpretation Comments UA Bacteria (test code = UA Few /HPF Bacteria) [facility] AND [id number] 16:48:00 Test Item Value Reference Range Interpretation Comments UA RBC (test code = 0-2 /HPF See_Comment [Automa lester message] The UA RBC) system which ge nerated this result tra nsmitted reference range : <=2. The reference range was not used to interpr et this result as dany l/abnormal. [facility] AND [id number] 16:48:00 Test Item Value Reference Range Interpretation Comments UA Sq Epi (test code = None Seen (05/22/18 UA Sq Epi) 10:48 AM) [facility] AND [id number] 16:48:00 Test Item Value Reference Range Interpretation Comments UA WBC (test code = UA WBC) 51-100 /HPF [facility]annERTAPENEM:SUSC:PT:ISOLATE:ORDQN:[id number] 16:48:00 Test Item Value Reference Range Interpretation Comments Culture: Urine (test >100,000 CFU/mL Proteus code = Culture: mirabilis 10,000 - Urine) 50,000 CFU/mL Skin [facility]:SUSC:PT:ISOLATE:ORDQN:[id number] 16:48:00 Test Item Value Reference Range Interpretation Comments Proteus mirabilis (test Proteus mirabilis code = Proteus mirabilis) [facility] AND [id number] 16:48:00 Test Item Value Reference Range Interpretation Comments UA Nitrite (test code Negative (05/22/18 10:48 = UA Nitrite) AM) [facility] AND [id number] 16:48:00 Test Item Value Reference Range Interpretation Comments UA Bili (test code = Negative *NA*(05/22/18 UA Bili) 10:48 AM) [facility] AND [id number] 16:48:00 Test Item Value Reference Range Interpretation Comments UA Ketones (test code Negative *NA*(05/22/18 = UA Ketones) 10:48 AM) [facility] AND [id number] 16:48:00 Test Item Value Reference Range Interpretation Comments UA Blood (test code = Trace *ABN*(05/22/18 UA Blood) 10:48 AM) [facility] AND [id number] 16:48:00 Test Item Value Reference Range Interpretation Comments UA Urobilinogen (test code = UA 0.2 0.1-1.0 Urobilinogen) [facility] AND [id number] 16:48:00 Test Item Value Reference Range Interpretation Comments UA Leuk Est (test code Large *ABN*(05/22/18 = UA Leuk Est) 10:48 AM) [facility] AND [id number] 16:48:00 Test Item Value Reference Range Interpretation Comments UA Protein (test code Negative (05/22/18 10:48 = UA Protein) AM) [facility] AND [id number] 16:48:00 Test Item Value Reference Range Interpretation Comments UA Glucose (test code Negative (05/22/18 10:48 = UA Glucose) AM) [facility] AND [id number] 16:48:00 Test Item Value Reference Range Interpretation Comments UA pH (test code = UA pH) 7.0 1 5.0-8.0 [facility] AND [id number] 16:48:00 Test Item Value Reference Range Interpretation Comments UA Spec Grav (test code = UA Spec 1.015 1 Grav) [facility] AND [id number] 16:48:00 Test Item Value Reference Range Interpretation Comments UA Color (test code = Yellow *NA*(05/22/18 UA Color) 10:48 AM) [facility] AND [id number] 16:48:00 Test Item Value Reference Range Interpretation Comments UA Turbidity (test code = Clear (05/22/18 10:48 UA Turbidity) AM) [facility] AND [id number] 16:48:00 Test Item Value Reference Range Interpretation Comments UA Mucus (test code = UA Mucus) Few /LPF [facility] AND [id number] 16:48:00 Test Item Value Reference Range Interpretation Comments UA Bacteria (test code = UA Few /HPF Bacteria) [facility] AND [id number] 16:48:00 Test Item Value Reference Range Interpretation Comments UA RBC (test code = 0-2 /HPF See_Comment [Automa lester message] The UA RBC) system which ge nerated this result tra nsmitted reference range : <=2. The reference range was not used to interpr et this result as dany l/abnormal. [facility] AND [id number] 16:48:00 Test Item Value Reference Range Interpretation Comments UA Sq Epi (test code = None Seen (05/22/18 UA Sq Epi) 10:48 AM) [facility] AND [id number] 16:48:00 Test Item Value Reference Range Interpretation Comments UA WBC (test code = UA WBC) 51-100 /HPF [facility]:PT:ISOLATE:ORDQN:[id number] 16:48:00 Test Item Value Reference Range Interpretation Comments Culture: Urine (test >100,000 CFU/mL Proteus code = Culture: mirabilis 10,000 - Urine) 50,000 CFU/mL Skin [facility]:SUSC:PT:ISOLATE:ORDQN:[id number] 16:48:00 Test Item Value Reference Range Interpretation Comments Proteus mirabilis (test Proteus mirabilis code = Proteus mirabilis) [facility] AND [id number] 16:48:00 Test Item Value Reference Range Interpretation Comments UA Nitrite (test code Negative (05/22/18 10:48 = UA Nitrite) AM) [facility] AND [id number] 16:48:00 Test Item Value Reference Range Interpretation Comments UA Bili (test code = Negative *NA*(05/22/18 UA Bili) 10:48 AM) [facility] AND [id number] 16:48:00 Test Item Value Reference Range Interpretation Comments UA Ketones (test code Negative *NA*(05/22/18 = UA Ketones) 10:48 AM) [facility] AND [id number] 16:48:00 Test Item Value Reference Range Interpretation Comments UA Blood (test code = Trace *ABN*(05/22/18 UA Blood) 10:48 AM) [facility] AND [id number] 16:48:00 Test Item Value Reference Range Interpretation Comments UA Urobilinogen (test code = UA 0.2 0.1-1.0 Urobilinogen) [facility] AND [id number] 16:48:00 Test Item Value Reference Range Interpretation Comments UA Leuk Est (test code Large *ABN*(05/22/18 = UA Leuk Est) 10:48 AM) [facility] AND [id number] 16:48:00 Test Item Value Reference Range Interpretation Comments UA Protein (test code Negative (05/22/18 10:48 = UA Protein) AM) [facility] AND [id number] 16:48:00 Test Item Value Reference Range Interpretation Comments UA Glucose (test code Negative (05/22/18 10:48 = UA Glucose) AM) [facility] AND [id number] 16:48:00 Test Item Value Reference Range Interpretation Comments UA pH (test code = UA pH) 7.0 1 5.0-8.0 [facility] AND [id number] 16:48:00 Test Item Value Reference Range Interpretation Comments UA Spec Grav (test code = UA Spec 1.015 1 Grav) [facility] AND [id number] 16:48:00 Test Item Value Reference Range Interpretation Comments UA Color (test code = Yellow *NA*(05/22/18 UA Color) 10:48 AM) [facility] AND [id number] 16:48:00 Test Item Value Reference Range Interpretation Comments UA Turbidity (test code = Clear (05/22/18 10:48 UA Turbidity) AM) [facility] AND [id number] 16:48:00 Test Item Value Reference Range Interpretation Comments UA Mucus (test code = UA Mucus) Few /LPF [facility] AND [id number] 16:48:00 Test Item Value Reference Range Interpretation Comments UA Bacteria (test code = UA Few /HPF Bacteria) [facility] AND [id number] 16:48:00 Test Item Value Reference Range Interpretation Comments UA RBC (test code = 0-2 /HPF See_Comment [Automa lester message] The UA RBC) system which ge nerated this result tra nsmitted reference range : <=2. The reference range was not used to interpr et this result as dany l/abnormal. [facility] AND [id number] 16:48:00 Test Item Value Reference Range Interpretation Comments UA Sq Epi (test code = None Seen (05/22/18 UA Sq Epi) 10:48 AM) [facility] AND [id number] 16:48:00 Test Item Value Reference Range Interpretation Comments UA WBC (test code = UA WBC) 51-100 /HPF [facility]:SUSC:PT:ISOLATE:ORDQN:[id number] 16:48:00 Test Item Value Reference Range Interpretation Comments Culture: Urine (test >100,000 CFU/mL Proteus code = Culture: mirabilis 10,000 - Urine) 50,000 CFU/mL Skin [facility]:SUSC:PT:ISOLATE:ORDQN:[id number] 16:48:00 Test Item Value Reference Range Interpretation Comments Proteus mirabilis (test Proteus mirabilis code = Proteus mirabilis) [facility] AND [id number] 16:48:00 Test Item Value Reference Range Interpretation Comments UA Nitrite (test code Negative (05/22/18 10:48 = UA Nitrite) AM) [facility] AND [id number] 16:48:00 Test Item Value Reference Range Interpretation Comments UA Bili (test code = Negative *NA*(05/22/18 UA Bili) 10:48 AM) [facility] AND [id number] 16:48:00 Test Item Value Reference Range Interpretation Comments UA Ketones (test code Negative *NA*(05/22/18 = UA Ketones) 10:48 AM) [facility] AND [id number] 16:48:00 Test Item Value Reference Range Interpretation Comments UA Blood (test code = Trace *ABN*(05/22/18 UA Blood) 10:48 AM) [facility] AND [id number] 16:48:00 Test Item Value Reference Range Interpretation Comments UA Urobilinogen (test code = UA 0.2 0.1-1.0 Urobilinogen) [facility] AND [id number] 16:48:00 Test Item Value Reference Range Interpretation Comments UA Leuk Est (test code Large *ABN*(05/22/18 = UA Leuk Est) 10:48 AM) [facility] AND [id number] 16:48:00 Test Item Value Reference Range Interpretation Comments UA Protein (test code Negative (05/22/18 10:48 = UA Protein) AM) [facility] AND [id number] 16:48:00 Test Item Value Reference Range Interpretation Comments UA Glucose (test code Negative (05/22/18 10:48 = UA Glucose) AM) [facility] AND [id number] 16:48:00 Test Item Value Reference Range Interpretation Comments UA pH (test code = UA pH) 7.0 1 5.0-8.0 [facility] AND [id number] 16:48:00 Test Item Value Reference Range Interpretation Comments UA Spec Grav (test code = UA Spec 1.015 1 Grav) [facility] AND [id number] 16:48:00 Test Item Value Reference Range Interpretation Comments UA Color (test code = Yellow *NA*(05/22/18 UA Color) 10:48 AM) [facility] AND [id number] 16:48:00 Test Item Value Reference Range Interpretation Comments UA Turbidity (test code = Clear (05/22/18 10:48 UA Turbidity) AM) [facility] [id number] 16:48:00 Test Item Value Reference Range Interpretation Comments UA Mucus (test code = UA Mucus) Few /LPF [facility] AND [id number] 16:48:00 Test Item Value Reference Range Interpretation Comments UA Bacteria (test code = UA Few /HPF Bacteria) [facility] AND [id number] 16:48:00 Test Item Value Reference Range Interpretation Comments UA RBC (test code = 0-2 /HPF See_Comment [Automa lester message] The UA RBC) system which ge nerated this result tra nsmitted reference range : <=2. The reference range was not used to interpr et this result as dany l/abnormal. [facility] AND [id number] 16:48:00 Test Item Value Reference Range Interpretation Comments UA Sq Epi (test code = None Seen (05/22/18 UA Sq Epi) 10:48 AM) [facility] AND [id number] 16:48:00 Test Item Value Reference Range Interpretation Comments UA WBC (test code = UA WBC) 51-100 /HPF [facility]SUSC:PT:ISOLATE:ORDQN:[id number] 16:48:00 Test Item Value Reference Range Interpretation Comments Culture: Urine (test >100,000 CFU/mL Proteus code = Culture: mirabilis 10,000 - Urine) 50,000 CFU/mL Skin [facility]:SUSC:PT:ISOLATE:ORDQN:[id number] 16:48:00 Test Item Value Reference Range Interpretation Comments Proteus mirabilis (test Proteus mirabilis code = Proteus mirabilis) [facility] AND [id number] 16:48:00 Test Item Value Reference Range Interpretation Comments UA Nitrite (test code Negative (05/22/18 10:48 = UA Nitrite) AM) [facility] AND [id number] 16:48:00 Test Item Value Reference Range Interpretation Comments UA Bili (test code = Negative *NA*(11/8/18 UA Bili) 10:48 AM) [facility] AND [id number] 16:48:00 Test Item Value Reference Range Interpretation Comments UA Ketones (test code Negative *NA*(05/22/18 = UA Ketones) 10:48 AM) [facility] AND [id number] 16:48:00 Test Item Value Reference Range Interpretation Comments UA Blood (test code = Trace *ABN*(05/22/18 UA Blood) 10:48 AM) [facility] [id number] 16:48:00 Test Item Value Reference Range Interpretation Comments UA Urobilinogen (test code = UA 0.2 0.1-1.0 Urobilinogen) [facility] [id number] 16:48:00 Test Item Value Reference Range Interpretation Comments UA Leuk Est (test code Large *ABN*(05/22/18 = UA Leuk Est) 10:48 AM) [facility] [id number] 16:48:00 Test Item Value Reference Range Interpretation Comments UA Protein (test code Negative (05/22/18 10:48 = UA Protein) AM) [facility] [id number] 16:48:00 Test Item Value Reference Range Interpretation Comments UA Glucose (test code Negative (05/22/18 10:48 = UA Glucose) AM) [facility] [id number] 16:48:00 Test Item Value Reference Range Interpretation Comments UA pH (test code = UA pH) 7.0 1 5.0-8.0 [facility] [id number] 16:48:00 Test Item Value Reference Range Interpretation Comments UA Spec Grav (test code = UA Spec 1.015 1 Grav) [facility] [id number] 16:48:00 Test Item Value Reference Range Interpretation Comments UA Color (test code = Yellow *NA*(05/22/18 UA Color) 10:48 AM) [facility] [id number] 16:48:00 Test Item Value Reference Range Interpretation Comments UA Turbidity (test code = Clear (05/22/18 10:48 UA Turbidity) AM) [facility] [id number] 16:48:00 Test Item Value Reference Range Interpretation Comments UA Mucus (test code = UA Mucus) Few /LPF [facility] [id number] 16:48:00 Test Item Value Reference Range Interpretation Comments UA Bacteria (test code = UA Few /HPF Bacteria) [facility] [id number] 16:48:00 Test Item Value Reference Range Interpretation Comments UA RBC (test code = 0-2 /HPF See_Comment [Automa lester message] The UA RBC) system which ge nerated this result tra nsmitted reference range : <=2. The reference range was not used to interpr et this result as dany l/abnormal. [facility] [id number] 16:48:00 Test Item Value Reference Range Interpretation Comments UA Sq Epi (test code = None Seen (05/22/18 UA Sq Epi) 10:48 AM) [facility] [id number] 16:48:00 Test Item Value Reference Range Interpretation Comments UA WBC (test code = UA WBC) 51-100 /HPF [facility]SUSC:PT:ISOLATE:ORDQN:[id number] 16:48:00 Test Item Value Reference Range Interpretation Comments Culture: Urine (test >100,000 CFU/mL Proteus code = Culture: mirabilis 10,000 - Urine) 50,000 CFU/mL Skin [facility]C:PT:ISOLATE:ORDQN:[id number] 16:48:00 Test Item Value Reference Range Interpretation Comments Proteus mirabilis (test Proteus mirabilis code = Proteus mirabilis) [facility] [id number] 16:48:00 Test Item Value Reference Range Interpretation Comments UA Nitrite (test code Negative (05/22/18 10:48 = UA Nitrite) AM) [facility] [id number] 16:48:00 Test Item Value Reference Range Interpretation Comments UA Bili (test code = Negative *NA*(05/22/18 UA Bili) 10:48 AM) [facility] [id number] 16:48:00 Test Item Value Reference Range Interpretation Comments UA Ketones (test code Negative *NA*(05/22/18 = UA Ketones) 10:48 AM) [facility] [id number] 16:48:00 Test Item Value Reference Range Interpretation Comments UA Blood (test code = Trace *ABN*(05/22/18 UA Blood) 10:48 AM) [facility] [id number] 16:48:00 Test Item Value Reference Range Interpretation Comments UA Urobilinogen (test code = UA 0.2 0.1-1.0 Urobilinogen) [facility] [id number] 16:48:00 Test Item Value Reference Range Interpretation Comments UA Leuk Est (test code Large *ABN*(05/22/18 = UA Leuk Est) 10:48 AM) [facility] [id number] 16:48:00 Test Item Value Reference Range Interpretation Comments UA Protein (test code Negative (05/22/18 10:48 = UA Protein) AM) [facility] [id number] 16:48:00 Test Item Value Reference Range Interpretation Comments UA Glucose (test code Negative (05/22/18 10:48 = UA Glucose) AM) [facility] [id number] 16:48:00 Test Item Value Reference Range Interpretation Comments UA pH (test code = UA pH) 7.0 1 5.0-8.0 [facility] [id number] 16:48:00 Test Item Value Reference Range Interpretation Comments UA Spec Grav (test code = UA Spec 1.015 1 Grav) [facility] [id number] 16:48:00 Test Item Value Reference Range Interpretation Comments UA Color (test code = Yellow *NA*(05/22/18 UA Color) 10:48 AM) [facility] [id number] 16:48:00 Test Item Value Reference Range Interpretation Comments UA Turbidity (test code = Clear (05/22/18 10:48 UA Turbidity) AM) [facility] [id number] 16:48:00 Test Item Value Reference Range Interpretation Comments UA Mucus (test code = UA Mucus) Few /LPF [facility] [id number] 16:48:00 Test Item Value Reference Range Interpretation Comments UA Bacteria (test code = UA Few /HPF Bacteria) [facility] [id number] 16:48:00 Test Item Value Reference Range Interpretation Comments UA RBC (test code = 0-2 /HPF See_Comment [Automa lester message] The UA RBC) system which ge nerated this result tra nsmitted reference range : <=2. The reference range was not used to interpr et this result as dany l/abnormal. [facility] [id number] 16:48:00 Test Item Value Reference Range Interpretation Comments UA Sq Epi (test code = None Seen (05/22/18 UA Sq Epi) 10:48 AM) [facility] [id number] 16:48:00 Test Item Value Reference Range Interpretation Comments UA WBC (test code = UA WBC) 51-100 /HPF [facility]C:PT:ISOLATE:ORDQN:[id number] 16:48:00 Test Item Value Reference Range Interpretation Comments Culture: Urine (test >100,000 CFU/mL Proteus code = Culture: mirabilis 10,000 - Urine) 50,000 CFU/mL Skin [facility]:SUSC:PT:ISOLATE:ORDQN:[id number] 16:48:00 Test Item Value Reference Range Interpretation Comments Proteus mirabilis (test Proteus mirabilis code = Proteus mirabilis) [facility] [id number] 16:48:00 Test Item Value Reference Range Interpretation Comments UA Nitrite (test code Negative (05/22/18 10:48 = UA Nitrite) AM) [facility] [id number] 16:48:00 Test Item Value Reference Range Interpretation Comments UA Bili (test code = Negative *NA*(05/22/18 UA Bili) 10:48 AM) [facility] [id number] 16:48:00 Test Item Value Reference Range Interpretation Comments UA Ketones (test code Negative *NA*(05/22/18 = UA Ketones) 10:48 AM) [facility] [id number] 16:48:00 Test Item Value Reference Range Interpretation Comments UA Blood (test code = Trace *ABN*(05/22/18 UA Blood) 10:48 AM) [facility] [id number] 16:48:00 Test Item Value Reference Range Interpretation Comments UA Urobilinogen (test code = UA 0.2 0.1-1.0 Urobilinogen) [facility] [id number] 16:48:00 Test Item Value Reference Range Interpretation Comments UA Leuk Est (test code Large *ABN*(05/22/18 = UA Leuk Est) 10:48 AM) [facility] [id number] 16:48:00 Test Item Value Reference Range Interpretation Comments UA Protein (test code Negative (05/22/18 10:48 = UA Protein) AM) [facility] [id number] 16:48:00 Test Item Value Reference Range Interpretation Comments UA Glucose (test code Negative (05/22/18 10:48 = UA Glucose) AM) [facility] [id number] 16:48:00 Test Item Value Reference Range Interpretation Comments UA pH (test code = UA pH) 7.0 1 5.0-8.0 [facility] [id number] 16:48:00 Test Item Value Reference Range Interpretation Comments UA Spec Grav (test code = UA Spec 1.015 1 Grav) [facility] [id number] 16:48:00 Test Item Value Reference Range Interpretation Comments UA Color (test code = Yellow *NA*(05/22/18 UA Color) 10:48 AM) [facility] [id number] 16:48:00 Test Item Value Reference Range Interpretation Comments UA Turbidity (test code = Clear (05/22/18 10:48 UA Turbidity) AM) [facility] [id number] 16:48:00 Test Item Value Reference Range Interpretation Comments UA Mucus (test code = UA Mucus) Few /LPF [facility] [id number] 16:48:00 Test Item Value Reference Range Interpretation Comments UA Bacteria (test code = UA Few /HPF Bacteria) [facility] [id number] 16:48:00 Test Item Value Reference Range Interpretation Comments UA RBC (test code = 0-2 /HPF See_Comment [Automa lester message] The UA RBC) system which ge nerated this result tra nsmitted reference range : <=2. The reference range was not used to interpr et this result as dany l/abnormal. [facility] [id number] 16:48:00 Test Item Value Reference Range Interpretation Comments UA Sq Epi (test code = None Seen (05/22/18 UA Sq Epi) 10:48 AM) [facility] [id number] 16:48:00 Test Item Value Reference Range Interpretation Comments UA WBC (test code = UA WBC) 51-100 /HPF [facility]C:PT:ISOLATE:ORDQN:[id number] 16:48:00 Test Item Value Reference Range Interpretation Comments Culture: Urine (test >100,000 CFU/mL Proteus code = Culture: mirabilis 10,000 - Urine) 50,000 CFU/mL Skin [facility]:SUSC:PT:ISOLATE:ORDQN:[id number] 16:48:00 Test Item Value Reference Range Interpretation Comments Proteus mirabilis (test Proteus mirabilis code = Proteus mirabilis) [facility] [id number] 16:48:00 Test Item Value Reference Range Interpretation Comments UA Nitrite (test code Negative (05/22/18 10:48 = UA Nitrite) AM) [facility] [id number] 16:48:00 Test Item Value Reference Range Interpretation Comments UA Bili (test code = Negative *NA*(05/22/18 UA Bili) 10:48 AM) [facility] [id number] 16:48:00 Test Item Value Reference Range Interpretation Comments UA Ketones (test code Negative *NA*(05/22/18 = UA Ketones) 10:48 AM) [facility] [id number] 16:48:00 Test Item Value Reference Range Interpretation Comments UA Blood (test code = Trace *ABN*(05/22/18 UA Blood) 10:48 AM) [facility] [id number] 16:48:00 Test Item Value Reference Range Interpretation Comments UA Urobilinogen (test code = UA 0.2 0.1-1.0 Urobilinogen) [facility] [id number] 16:48:00 Test Item Value Reference Range Interpretation Comments UA Leuk Est (test code Large *ABN*(05/22/18 = UA Leuk Est) 10:48 AM) [facility] [id number] 16:48:00 Test Item Value Reference Range Interpretation Comments UA Protein (test code Negative (05/22/18 10:48 = UA Protein) AM) [facility] [id number] 16:48:00 Test Item Value Reference Range Interpretation Comments UA Glucose (test code Negative (05/22/18 10:48 = UA Glucose) AM) [facility] [id number] 16:48:00 Test Item Value Reference Range Interpretation Comments UA pH (test code = UA pH) 7.0 1 5.0-8.0 [facility] [id number] 16:48:00 Test Item Value Reference Range Interpretation Comments UA Spec Grav (test code = UA Spec 1.015 1 Grav) [facility] [id number] 16:48:00 Test Item Value Reference Range Interpretation Comments UA Color (test code = Yellow *NA*(05/22/18 UA Color) 10:48 AM) [facility] [id number] 16:48:00 Test Item Value Reference Range Interpretation Comments UA Turbidity (test code = Clear (05/22/18 10:48 UA Turbidity) AM) [facility] [id number] 16:48:00 Test Item Value Reference Range Interpretation Comments UA Mucus (test code = UA Mucus) Few /LPF [facility] [id number] 16:48:00 Test Item Value Reference Range Interpretation Comments UA Bacteria (test code = UA Few /HPF Bacteria) [facility] [id number] 16:48:00 Test Item Value Reference Range Interpretation Comments UA RBC (test code = 0-2 /HPF See_Comment [Automa lester message] The UA RBC) system which ge nerated this result tra nsmitted reference range : <=2. The reference range was not used to interpr et this result as dany l/abnormal. [facility] [id number] 16:48:00 Test Item Value Reference Range Interpretation Comments UA Sq Epi (test code = None Seen (05/22/18 UA Sq Epi) 10:48 AM) [facility] [id number] 16:48:00 Test Item Value Reference Range Interpretation Comments UA WBC (test code = UA WBC) 51-100 /HPF [facility] [id number] 11:57:00 Test Item Value Reference Range Interpretation Comments Antibody Scrn (test Negative (05/22/18 5:57 code = Antibody Scrn) AM) [facility] [id number] 11:57:00 Test Item Value Reference Range Interpretation Comments ABO/Rh (test code = ABO/Rh) AB POS [id number] 11:57:00 Test Item Value Reference Range Interpretation Comments PTT (test code = PTT) 33.4 s 22.9-35.8 [facility]in[id number] 11:57:00 Test Item Value Reference Range Interpretation Comments PT (test code = PT) 13.7 s 12.0-14.7 [facility]in[id number] 11:57:00 Test Item Value Reference Range Interpretation Comments INR (test code = INR) 1.05 1 0.85-1.17 [facility] [id number] 11:57:00 Test Item Value Reference Range Interpretation Comments Antibody Scrn (test Negative (05/22/18 5:57 code = Antibody Scrn) AM) [facility] [id number] 11:57:00 Test Item Value Reference Range Interpretation Comments ABO/Rh (test code = ABO/Rh) AB POS [id number] 11:57:00 Test Item Value Reference Range Interpretation Comments PTT (test code = PTT) 33.4 s 22.9-35.8 [facility] PointeAynfnggIIFBDBBQAW2764-19-47 11:57:00 Test Item Value Reference Range Interpretation Comments PT (test code = PT) 13.7 s 12.0-14.7 [facility]inteKlmcdopTQXBMWASZF1312-84-07 11:57:00 Test Item Value Reference Range Interpretation Comments INR (test code = INR) 1.05 1 0.85-1.17 [facility] [id number] 11:57:00 Test Item Value Reference Range Interpretation Comments Antibody Scrn (test Negative (05/22/18 5:57 code = Antibody Scrn) AM) [facility] [id number] 11:57:00 Test Item Value Reference Range Interpretation Comments ABO/Rh (test code = ABO/Rh) AB POS [facility] [id number] 11:57:00 Test Item Value Reference Range Interpretation Comments PTT (test code = PTT) 33.4 s 22.9-35.8 [facility] PointeCwrnzyqYEVSCQDVJI7446-36-63 11:57:00 Test Item Value Reference Range Interpretation Comments PT (test code = PT) 13.7 s 12.0-14.7 [facility] PointeGguieglQBOUXZVAIC1393-27-23 11:57:00 Test Item Value Reference Range Interpretation Comments INR (test code = INR) 1.05 1 0.85-1.17 [facility] [id number] 11:57:00 Test Item Value Reference Range Interpretation Comments Antibody Scrn (test Negative (05/22/18 5:57 code = Antibody Scrn) AM) [facility] [id number] 11:57:00 Test Item Value Reference Range Interpretation Comments ABO/Rh (test code = ABO/Rh) AB POS [facility]inteFncuzxtXPPZAARWKG9336-03-04 11:57:00 Test Item Value Reference Range Interpretation Comments PTT (test code = PTT) 33.4 s 22.9-35.8 [facility] [id number] 11:57:00 Test Item Value Reference Range Interpretation Comments PT (test code = PT) 13.7 s 12.0-14.7 [facility] PointeTqrzpplQOEUHDDZDY5748-73-99 11:57:00 Test Item Value Reference Range Interpretation Comments INR (test code = INR) 1.05 1 0.85-1.17 [facility] [id number] 11:57:00 Test Item Value Reference Range Interpretation Comments Antibody Scrn (test Negative (05/22/18 5:57 code = Antibody Scrn) AM) [facility] [id number] 11:57:00 Test Item Value Reference Range Interpretation Comments ABO/Rh (test code = ABO/Rh) AB POS [facility] PointeRggvtgpUESECWPBXQ1005-56-03 11:57:00 Test Item Value Reference Range Interpretation Comments PTT (test code = PTT) 33.4 s 22.9-35.8 [facility] PointeHnrgjcvCCCPUXEPPO7564-50-63 11:57:00 Test Item Value Reference Range Interpretation Comments PT (test code = PT) 13.7 s 12.0-14.7 [facility] PointeIjioemyICZXRZGBLS6215-22-74 11:57:00 Test Item Value Reference Range Interpretation Comments INR (test code = INR) 1.05 1 0.85-1.17 [facility] [id number] 11:57:00 Test Item Value Reference Range Interpretation Comments Antibody Scrn (test Negative (05/22/18 5:57 code = Antibody Scrn) AM) [facility] [id number] 11:57:00 Test Item Value Reference Range Interpretation Comments ABO/Rh (test code = ABO/Rh) AB POS [facility] PointeLmrrpkyZMSNGDGCSA1891-03-84 11:57:00 Test Item Value Reference Range Interpretation Comments PTT (test code = PTT) 33.4 s 22.9-35.8 [facility] PointeQxiehieIAXODTXQIN7258-10-16 11:57:00 Test Item Value Reference Range Interpretation Comments PT (test code = PT) 13.7 s 12.0-14.7 [facility] PointeHwpejwrCHGKVFJETJ1380-25-97 11:57:00 Test Item Value Reference Range Interpretation Comments INR (test code = INR) 1.05 1 0.85-1.17 [facility] [id number] 11:57:00 Test Item Value Reference Range Interpretation Comments Antibody Scrn (test Negative (05/22/18 5:57 code = Antibody Scrn) AM) [facility] [id number] 11:57:00 Test Item Value Reference Range Interpretation Comments ABO/Rh (test code = ABO/Rh) AB POS [facility] PointeDfdgkgbLJZTOUGZIV6615-18-22 11:57:00 Test Item Value Reference Range Interpretation Comments PTT (test code = PTT) 33.4 s 22.9-35.8 [facility] PointeNspaovpNOMMWHYIFS4482-10-48 11:57:00 Test Item Value Reference Range Interpretation Comments PT (test code = PT) 13.7 s 12.0-14.7 [facility] PointeOxzrfjhBRRUWENYYN3147-12-40 11:57:00 Test Item Value Reference Range Interpretation Comments INR (test code = INR) 1.05 1 0.85-1.17 [facility] [id number] 11:57:00 Test Item Value Reference Range Interpretation Comments Antibody Scrn (test Negative (05/22/18 5:57 code = Antibody Scrn) AM) [facility] [id number] 11:57:00 Test Item Value Reference Range Interpretation Comments ABO/Rh (test code = ABO/Rh) AB POS [facility] PointeIndnhhzGDLWLVQACG5646-74-83 11:57:00 Test Item Value Reference Range Interpretation Comments PTT (test code = PTT) 33.4 s 22.9-35.8 [facility] PointeEzsgkzjXYVEWWWPUR1361-08-24 11:57:00 Test Item Value Reference Range Interpretation Comments PT (test code = PT) 13.7 s 12.0-14.7 [facility] PointeAprvaqhADXZFBEWOL4450-41-43 11:57:00 Test Item Value Reference Range Interpretation Comments INR (test code = INR) 1.05 1 0.85-1.17 [facility]2018-11-08 10:50:01 Test Item Value Reference Range Interpretation Comments eGFR (test code = eGFR) 133 [facility]2018-11-08 10:50:01 Test Item Value Reference Range Interpretation Comments Calcium Lvl (test code = Calcium Lvl) 9.4 8.5-10.5 [facility]2018-11-08 10:50:01 Test Item Value Reference Range Interpretation Comments CO2 (test code = CO2) 28 24-32 [facility]2018-11-08 10:50:01 Test Item Value Reference Range Interpretation Comments BUN (test code = BUN) 14 7-22 [facility]2018-11-08 10:50:01 Test Item Value Reference Range Interpretation Comments Glucose Lvl (test code = Glucose Lvl) 89 70-99 [facility]2018-11-08 10:50:01 Test Item Value Reference Range Interpretation Comments Chloride Lvl (test code = Chloride Lvl) 104 95-109 [facility]2018-11-08 10:50:01 Test Item Value Reference Range Interpretation Comments Potassium Lvl (test code = Potassium 4.2 3.5-5.1 Lvl) [facility]2018-11-08 10:50:01 Test Item Value Reference Range Interpretation Comments Sodium Lvl (test code = Sodium Lvl) 137 135-145 [facility]2018-11-08 10:50:01 Test Item Value Reference Range Interpretation Comments Creatinine Lvl (test code = Creatinine 0.85 0.50-1.40 Lvl) [facility]2018-11-08 10:50:01 Test Item Value Reference Range Interpretation Comments AGAP (test code = AGAP) 9.2 10.0-20.0 [facility] PointeYvnzvbwZGKYJRVJLA8965-35-91 10:50:01 Test Item Value Reference Range Interpretation Comments ACT (TEG) Rapid (test code = ACT (TEG) 136 s 86-118 Rapid) [facility] PointeToadfheVLMVNXFBKS3960-10-04 10:50:01 Test Item Value Reference Range Interpretation Comments Split Point Rapid (test code = Split 0.6 min Point Rapid) [facility] PointeFrzdbmfJNDKEBETQK2748-11-55 10:50:01 Test Item Value Reference Range Interpretation Comments R-time Rapid (test code = R-time 0.9 min 0.4-0.7 Rapid) [facility] PointeZmixuzgPWDZQZAYJJ5118-66-36 10:50:01 Test Item Value Reference Range Interpretation Comments K-time Rapid (test code = K-time 1.4 min 0.6-2.3 Rapid) [facility] PointeSvlpbueDKAYTAPEON7125-36-22 10:50:01 Test Item Value Reference Range Interpretation Comments Angle Rapid (test code = Angle 71 degrees 64-80 Rapid) [facility] PointeGuwwwgrVRSYFORNLZ5080-36-21 10:50:01 Test Item Value Reference Range Interpretation Comments G-value Rapid (test code = G-value 12.7 5.0-11.6 Rapid) [facility] PointeWqjvolxUUAWVTYORY7347-92-03 10:50:01 Test Item Value Reference Range Interpretation Comments Max Amplitude Rapid (test code = Max 72 mm 52-71 Amplitude Rapid) [facility] PointeMmygpdgVTJEZVFKXO4793-30-55 10:50:01 Test Item Value Reference Range Interpretation Comments Estimated % Lysis Rapid 0.1 See_Comment [Au tomated message] The (test code = Estimated syste m which generated % Lysis Rapid) this result t ransmitted reference range : <=7.5. The reference r boubacar was not used to int erpret this result as normal/abnormal . [facility] PointeVecsssbBWLMAWANEP2697-74-15 10:50:01 Test Item Value Reference Range Interpretation Comments Platelet (test code = Platelet) 367 133-450 [facility] PointeIljkoqtWMNOEHBKCB6172-02-24 10:50:01 Test Item Value Reference Range Interpretation Comments MPV (test code = MPV) 7.8 7.4-10.4 [facility]inteCxutyvzDXCQUAZMLS5595-76-95 10:50:01 Test Item Value Reference Range Interpretation Comments MCH (test code = MCH) 27.4 pg 27.0-31.0 [facility]inteWqfobflIEVROZFZGF1764-53-24 10:50:01 Test Item Value Reference Range Interpretation Comments MCV (test code = MCV) 80.7 80.0-94.0 [facility] PointeVaybnlcLEDVAEMAWP2916-56-18 10:50:01 Test Item Value Reference Range Interpretation Comments MCHC (test code = MCHC) 34.0 32.0-36.0 [facility] PointeTtqzgxeWZRXBHPUYU0625-28-57 10:50:01 Test Item Value Reference Range Interpretation Comments RDW (test code = RDW) 18.9 11.5-14.5 [facility]inteXjvfpgxFHHNSFDYOU9276-33-02 10:50:01 Test Item Value Reference Range Interpretation Comments Hct (test code = Hct) 43.3 42.0-54.0 [facility]inteVxtsdbdIYGCFZJZAU9543-66-32 10:50:01 Test Item Value Reference Range Interpretation Comments WBC (test code = WBC) 9.3 3.7-10.4 [facility]inteOcwygtrUJWRWANITE3616-04-26 10:50:01 Test Item Value Reference Range Interpretation Comments Hgb (test code = Hgb) 14.7 14.0-18.0 [facility]inteEnydrdsRXHCTTLINO7879-48-39 10:50:01 Test Item Value Reference Range Interpretation Comments RBC (test code = RBC) 5.36 4.70-6.10 [facility]inteLwpxkudBQYASCDRSE6204-92-40 10:50:01 Test Item Value Reference Range Interpretation Comments Eosinophils # (test code 0.2 See_Comment [A utomated message] The = Eosinophils #) system whic h generated this result tra nsmitted reference range : <=0.5. The reference r boubacar was not used to int erpret this result as normal/abnormal . [facility]inteEenfosfUZVJXBKHCO9011-26-44 10:50:01 Test Item Value Reference Range Interpretation Comments Basophils # (test code 0.1 See_Comment [Aut omated message] The = Basophils #) system which generated this result tra nsmitted reference range : <=0.2. The reference r boubacar was not used to int erpret this result as normal/abnormal . [facility]inteMorfqxjUUQZVFVNNK6203-31-60 10:50:01 Test Item Value Reference Range Interpretation Comments Lymphocytes # (test code = Lymphocytes 1.8 1.0-5.5 #) [facility]inteOvegfhdXIOHJIWTLU3089-82-64 10:50:01 Test Item Value Reference Range Interpretation Comments Monocytes # (test code 0.9 See_Comment [Aut omated message] The = Monocytes #) system which generated this result tra nsmitted reference range : <=0.8. The reference r boubacar was not used to int erpret this result as normal/abnormal . [facility]inteYkwkixbJGMMOAJUXP3692-87-19 10:50:01 Test Item Value Reference Range Interpretation Comments Neutrophils # (test code = Neutrophils 6.3 1.5-8.1 #) [facility] PointeBxembqwTJCCSBRHQQ0798-62-66 10:50:01 Test Item Value Reference Range Interpretation Comments Eosinophils (test code = 2.0 See_Comment [A utomated message] The Eosinophils) system which ge nerated this result tra nsmitted reference range : <=4.0. The reference r boubacar was not used to int erpret this result as normal/abnormal . [facility]inteLwktxzpRYOZVWOGRJ7114-80-31 10:50:01 Test Item Value Reference Range Interpretation Comments Segs (test code = Segs) 67.4 45.0-75.0 [facility] PointeWxzowruCVVHOMCXAS3567-74-05 10:50:01 Test Item Value Reference Range Interpretation Comments Lymphocytes (test code = Lymphocytes) 19.9 20.0-40.0 [facility] PointeUcanubfHBLVJHYFEV2072-81-93 10:50:01 Test Item Value Reference Range Interpretation Comments Basophils (test code = 1.0 See_Comment [Aut omated message] The Basophils) system which ge nerated this result tra nsmitted reference range : <=1.0. The reference r boubacar was not used to int erpret this result as normal/abnormal . [facility]inteFkyjuvqCGBILRPDKL8872-97-04 10:50:01 Test Item Value Reference Range Interpretation Comments Monocytes (test code = Monocytes) 9.7 2.0-12.0 [facility]2018-11-08 10:50:01 Test Item Value Reference Range Interpretation Comments eGFR (test code = eGFR) 133 [facility]2018-11-08 10:50:01 Test Item Value Reference Range Interpretation Comments Calcium Lvl (test code = Calcium Lvl) 9.4 8.5-10.5 [facility]2018-11-08 10:50:01 Test Item Value Reference Range Interpretation Comments CO2 (test code = CO2) 28 24-32 [facility]2018-11-08 10:50:01 Test Item Value Reference Range Interpretation Comments BUN (test code = BUN) 14 7-22 [facility]2018-11-08 10:50:01 Test Item Value Reference Range Interpretation Comments Glucose Lvl (test code = Glucose Lvl) 89 70-99 [facility]2018-11-08 10:50:01 Test Item Value Reference Range Interpretation Comments Chloride Lvl (test code = Chloride Lvl) 104 95-109 [facility]2018-11-08 10:50:01 Test Item Value Reference Range Interpretation Comments Potassium Lvl (test code = Potassium 4.2 3.5-5.1 Lvl) [facility]2018-11-08 10:50:01 Test Item Value Reference Range Interpretation Comments Sodium Lvl (test code = Sodium Lvl) 137 135-145 [facility]2018-11-08 10:50:01 Test Item Value Reference Range Interpretation Comments Creatinine Lvl (test code = Creatinine 0.85 0.50-1.40 Lvl) [facility]2018-11-08 10:50:01 Test Item Value Reference Range Interpretation Comments AGAP (test code = AGAP) 9.2 10.0-20.0 [facility]inteAmmudpgIETXTUZJHB1792-73-88 10:50:01 Test Item Value Reference Range Interpretation Comments ACT (TEG) Rapid (test code = ACT (TEG) 136 s 86-118 Rapid) [facility]inteLzbohwcRHIRLAUOZH9388-95-72 10:50:01 Test Item Value Reference Range Interpretation Comments Split Point Rapid (test code = Split 0.6 min Point Rapid) [facility]inteSykqwfoKQSQVYMHDN9408-87-14 10:50:01 Test Item Value Reference Range Interpretation Comments R-time Rapid (test code = R-time 0.9 min 0.4-0.7 Rapid) [facility]inteSovxahyLYMFVCHRFN1336-86-55 10:50:01 Test Item Value Reference Range Interpretation Comments K-time Rapid (test code = K-time 1.4 min 0.6-2.3 Rapid) [facility]inteYnrjznpYXXMTDRGTX1345-94-25 10:50:01 Test Item Value Reference Range Interpretation Comments Angle Rapid (test code = Angle 71 degrees 64-80 Rapid) [facility]inteObxfhorDXWZIHZDUL5251-35-58 10:50:01 Test Item Value Reference Range Interpretation Comments G-value Rapid (test code = G-value 12.7 5.0-11.6 Rapid) [facility] PointeMtazfnoBEUEVAKDZV8628-79-66 10:50:01 Test Item Value Reference Range Interpretation Comments Max Amplitude Rapid (test code = Max 72 mm 52-71 Amplitude Rapid) [facility] PointePtwhvffPPIASZVLNV6553-17-95 10:50:01 Test Item Value Reference Range Interpretation Comments Estimated % Lysis Rapid 0.1 See_Comment [Au tomated message] The (test code = Estimated syste m which generated % Lysis Rapid) this result t ransmitted reference range : <=7.5. The reference r boubacar was not used to int erpret this result as normal/abnormal . [facility]inteLaykdvqWTIEEGZSGM0946-81-45 10:50:01 Test Item Value Reference Range Interpretation Comments Platelet (test code = Platelet) 367 133-450 [facility] PointeLihmzhqYFQGAVAHPS9734-14-96 10:50:01 Test Item Value Reference Range Interpretation Comments MPV (test code = MPV) 7.8 7.4-10.4 [facility] PointeFqlgqtwVMXBETUFVT8230-42-80 10:50:01 Test Item Value Reference Range Interpretation Comments MCH (test code = MCH) 27.4 pg 27.0-31.0 [facility] PointeMbevyyeGFRNSAWSCM8873-18-18 10:50:01 Test Item Value Reference Range Interpretation Comments MCV (test code = MCV) 80.7 80.0-94.0 [facility] PointeVsjvxkeHVKXCFQKWF0997-94-86 10:50:01 Test Item Value Reference Range Interpretation Comments MCHC (test code = MCHC) 34.0 32.0-36.0 [facility] PointeYvfmhycWZJGJEIUIC0605-08-66 10:50:01 Test Item Value Reference Range Interpretation Comments RDW (test code = RDW) 18.9 11.5-14.5 [facility] PointeEzpkhyyDLAYRALODG9385-99-61 10:50:01 Test Item Value Reference Range Interpretation Comments Hct (test code = Hct) 43.3 42.0-54.0 [facility] PointeLtlkaydUAUACBOVOF8433-08-66 10:50:01 Test Item Value Reference Range Interpretation Comments WBC (test code = WBC) 9.3 3.7-10.4 [facility] PointeCdaouotOLLHBECOTN9560-82-48 10:50:01 Test Item Value Reference Range Interpretation Comments Hgb (test code = Hgb) 14.7 14.0-18.0 [facility] PointePsqczqvUFGQBCNHXT6645-28-45 10:50:01 Test Item Value Reference Range Interpretation Comments RBC (test code = RBC) 5.36 4.70-6.10 [facility] PointeRqkgbztSPUHJLPYSM5540-07-99 10:50:01 Test Item Value Reference Range Interpretation Comments Eosinophils # (test code 0.2 See_Comment [A utomated message] The = Eosinophils #) system whic h generated this result tra nsmitted reference range : <=0.5. The reference r boubacar was not used to int erpret this result as normal/abnormal . [facility]inteJvsfabtEXPYEHAAXW4745-18-96 10:50:01 Test Item Value Reference Range Interpretation Comments Basophils # (test code 0.1 See_Comment [Aut omated message] The = Basophils #) system which generated this result tra nsmitted reference range : <=0.2. The reference r boubacar was not used to int erpret this result as normal/abnormal . [facility]inteOtkagjiQALUYXXQTE0194-22-45 10:50:01 Test Item Value Reference Range Interpretation Comments Lymphocytes # (test code = Lymphocytes 1.8 1.0-5.5 #) [facility]inteXzyqhylBJCKYTVAFS5128-39-35 10:50:01 Test Item Value Reference Range Interpretation Comments Monocytes # (test code 0.9 See_Comment [Aut omated message] The = Monocytes #) system which generated this result tra nsmitted reference range : <=0.8. The reference r boubacar was not used to int erpret this result as normal/abnormal . [facility]inteOxobpfcOHNLBKYVRL7246-10-52 10:50:01 Test Item Value Reference Range Interpretation Comments Neutrophils # (test code = Neutrophils 6.3 1.5-8.1 #) [facility]inteWktsxhdBIPTVMMRNT0370-82-79 10:50:01 Test Item Value Reference Range Interpretation Comments Eosinophils (test code = 2.0 See_Comment [A utomated message] The Eosinophils) system which ge nerated this result tra nsmitted reference range : <=4.0. The reference r boubacar was not used to int erpret this result as normal/abnormal . [facility] PointeUeieqhiEKFGBWGOFU6099-70-95 10:50:01 Test Item Value Reference Range Interpretation Comments Segs (test code = Segs) 67.4 45.0-75.0 [facility] PointeHdsiwckCSROUDDMHZ7105-06-11 10:50:01 Test Item Value Reference Range Interpretation Comments Lymphocytes (test code = Lymphocytes) 19.9 20.0-40.0 [facility] PointeLpxnuquSJNMDZIOZA6020-12-48 10:50:01 Test Item Value Reference Range Interpretation Comments Basophils (test code = 1.0 See_Comment [Aut omated message] The Basophils) system which ge nerated this result tra nsmitted reference range : <=1.0. The reference r boubacar was not used to int erpret this result as normal/abnormal . [facility]inteLitlajrWOPXDSMRAY3996-50-99 10:50:01 Test Item Value Reference Range Interpretation Comments Monocytes (test code = Monocytes) 9.7 2.0-12.0 [facility]2018-11-08 10:50:01 Test Item Value Reference Range Interpretation Comments eGFR (test code = eGFR) 133 [facility]2018-11-08 10:50:01 Test Item Value Reference Range Interpretation Comments Calcium Lvl (test code = Calcium Lvl) 9.4 8.5-10.5 [facility]2018-11-08 10:50:01 Test Item Value Reference Range Interpretation Comments CO2 (test code = CO2) 28 24-32 [facility]2018-11-08 10:50:01 Test Item Value Reference Range Interpretation Comments BUN (test code = BUN) 14 7-22 [facility]2018-11-08 10:50:01 Test Item Value Reference Range Interpretation Comments Glucose Lvl (test code = Glucose Lvl) 89 70-99 [facility]2018-11-08 10:50:01 Test Item Value Reference Range Interpretation Comments Chloride Lvl (test code = Chloride Lvl) 104 95-109 [facility]2018-11-08 10:50:01 Test Item Value Reference Range Interpretation Comments Potassium Lvl (test code = Potassium 4.2 3.5-5.1 Lvl) [facility]2018-11-08 10:50:01 Test Item Value Reference Range Interpretation Comments Sodium Lvl (test code = Sodium Lvl) 137 135-145 [facility]2018-11-08 10:50:01 Test Item Value Reference Range Interpretation Comments Creatinine Lvl (test code = Creatinine 0.85 0.50-1.40 Lvl) [facility]2018-11-08 10:50:01 Test Item Value Reference Range Interpretation Comments AGAP (test code = AGAP) 9.2 10.0-20.0 [facility]inteCbzrhvjCOXONEEGRL6580-41-51 10:50:01 Test Item Value Reference Range Interpretation Comments ACT (TEG) Rapid (test code = ACT (TEG) 136 s 86-118 Rapid) [facility]inteYmyuncdJCFDIRDWGE4742-38-81 10:50:01 Test Item Value Reference Range Interpretation Comments Split Point Rapid (test code = Split 0.6 min Point Rapid) [facility] PointeAselkxlIDSLXZPIMV7331-97-38 10:50:01 Test Item Value Reference Range Interpretation Comments R-time Rapid (test code = R-time 0.9 min 0.4-0.7 Rapid) [facility] PointeQjrdfghULFSHLTILB2890-10-81 10:50:01 Test Item Value Reference Range Interpretation Comments K-time Rapid (test code = K-time 1.4 min 0.6-2.3 Rapid) [facility]inteXyepxitNDTCUNJLYW5009-11-36 10:50:01 Test Item Value Reference Range Interpretation Comments Angle Rapid (test code = Angle 71 degrees 64-80 Rapid) [facility] PointeKhxrfbeILYOKSUKGD0343-69-58 10:50:01 Test Item Value Reference Range Interpretation Comments G-value Rapid (test code = G-value 12.7 5.0-11.6 Rapid) [facility] PointeVpjwfvgVOSFOKJPSN0651-90-82 10:50:01 Test Item Value Reference Range Interpretation Comments Max Amplitude Rapid (test code = Max 72 mm 52-71 Amplitude Rapid) [facility] PointeSdostzeXHZCPFPDBL9520-86-56 10:50:01 Test Item Value Reference Range Interpretation Comments Estimated % Lysis Rapid 0.1 See_Comment [Au tomated message] The (test code = Estimated syste m which generated % Lysis Rapid) this result t ransmitted reference range : <=7.5. The reference r boubacar was not used to int erpret this result as normal/abnormal . [facility] PointeGumkifiTMPZMNVRMH8769-98-38 10:50:01 Test Item Value Reference Range Interpretation Comments Platelet (test code = Platelet) 367 133-450 [facility] PointeFzdcyjzBLFPGJGEGG4636-58-63 10:50:01 Test Item Value Reference Range Interpretation Comments MPV (test code = MPV) 7.8 7.4-10.4 [facility] PointeCxzgefvLPQFMMJWBY5719-82-76 10:50:01 Test Item Value Reference Range Interpretation Comments MCH (test code = MCH) 27.4 pg 27.0-31.0 [facility] PointeIventydUVTYNTOPJU4071-33-79 10:50:01 Test Item Value Reference Range Interpretation Comments MCV (test code = MCV) 80.7 80.0-94.0 [facility] PointePbubdkpDNTADHBIBG1294-71-68 10:50:01 Test Item Value Reference Range Interpretation Comments MCHC (test code = MCHC) 34.0 32.0-36.0 [facility]inteXqmnuggRZLONOTUPJ3161-69-75 10:50:01 Test Item Value Reference Range Interpretation Comments RDW (test code = RDW) 18.9 11.5-14.5 [facility] PointeJyfrgwpCZYBLGZIBG4934-81-20 10:50:01 Test Item Value Reference Range Interpretation Comments Hct (test code = Hct) 43.3 42.0-54.0 [facility] PointeUqbatilKVPLPQWNDO4652-62-20 10:50:01 Test Item Value Reference Range Interpretation Comments WBC (test code = WBC) 9.3 3.7-10.4 [facility] PointeXwcofzsMHMBFTMVGW2084-48-94 10:50:01 Test Item Value Reference Range Interpretation Comments Hgb (test code = Hgb) 14.7 14.0-18.0 [facility] PointeBznkbdxBYOUXBWLKG8076-30-23 10:50:01 Test Item Value Reference Range Interpretation Comments RBC (test code = RBC) 5.36 4.70-6.10 [facility] PointeKyzmjbiWPGDWIAQBV0389-57-10 10:50:01 Test Item Value Reference Range Interpretation Comments Eosinophils # (test code 0.2 See_Comment [A utomated message] The = Eosinophils #) system whic h generated this result tra nsmitted reference range : <=0.5. The reference r boubacar was not used to int erpret this result as normal/abnormal . [facility] PointeKpdhrusDJNRIAVYCE5124-04-85 10:50:01 Test Item Value Reference Range Interpretation Comments Basophils # (test code 0.1 See_Comment [Aut omated message] The = Basophils #) system which generated this result tra nsmitted reference range : <=0.2. The reference r boubacar was not used to int erpret this result as normal/abnormal . [facility] PointeDcqtloaNYIHIWTLNU4975-44-15 10:50:01 Test Item Value Reference Range Interpretation Comments Lymphocytes # (test code = Lymphocytes 1.8 1.0-5.5 #) [facility]inteXwrpjthJMKIBEYDBT7852-89-39 10:50:01 Test Item Value Reference Range Interpretation Comments Monocytes # (test code 0.9 See_Comment [Aut omated message] The = Monocytes #) system which generated this result tra nsmitted reference range : <=0.8. The reference r boubacar was not used to int erpret this result as normal/abnormal . [facility] PointeSvnacckRSJVEGJYDB5937-60-87 10:50:01 Test Item Value Reference Range Interpretation Comments Neutrophils # (test code = Neutrophils 6.3 1.5-8.1 #) [facility] PointeLtsauirOUBHVOXQKE6160-56-84 10:50:01 Test Item Value Reference Range Interpretation Comments Eosinophils (test code = 2.0 See_Comment [A utomated message] The Eosinophils) system which ge nerated this result tra nsmitted reference range : <=4.0. The reference r boubacar was not used to int erpret this result as normal/abnormal . [facility]intePgssamvACPXDMYKVJ6230-68-20 10:50:01 Test Item Value Reference Range Interpretation Comments Segs (test code = Segs) 67.4 45.0-75.0 [facility] PointeBzxxchwFZJFDQZVYI8861-08-22 10:50:01 Test Item Value Reference Range Interpretation Comments Lymphocytes (test code = Lymphocytes) 19.9 20.0-40.0 [facility] PointeTxecmaqVBDQVKLHUN9046-81-50 10:50:01 Test Item Value Reference Range Interpretation Comments Basophils (test code = 1.0 See_Comment [Aut omated message] The Basophils) system which ge nerated this result tra nsmitted reference range : <=1.0. The reference r boubacar was not used to int erpret this result as normal/abnormal . [facility] PointeUzxvwnyTRXZLOKFOV2347-46-05 10:50:01 Test Item Value Reference Range Interpretation Comments Monocytes (test code = Monocytes) 9.7 2.0-12.0 [facility]2018-11-08 10:50:01 Test Item Value Reference Range Interpretation Comments eGFR (test code = eGFR) 133 [facility]2018-11-08 10:50:01 Test Item Value Reference Range Interpretation Comments Calcium Lvl (test code = Calcium Lvl) 9.4 8.5-10.5 [facility]2018-11-08 10:50:01 Test Item Value Reference Range Interpretation Comments CO2 (test code = CO2) 28 24-32 [facility]2018-11-08 10:50:01 Test Item Value Reference Range Interpretation Comments BUN (test code = BUN) 14 7-22 [facility]2018-11-08 10:50:01 Test Item Value Reference Range Interpretation Comments Glucose Lvl (test code = Glucose Lvl) 89 70-99 [facility]2018-11-08 10:50:01 Test Item Value Reference Range Interpretation Comments Chloride Lvl (test code = Chloride Lvl) 104 95-109 [facility]2018-11-08 10:50:01 Test Item Value Reference Range Interpretation Comments Potassium Lvl (test code = Potassium 4.2 3.5-5.1 Lvl) [facility]2018-11-08 10:50:01 Test Item Value Reference Range Interpretation Comments Sodium Lvl (test code = Sodium Lvl) 137 135-145 [facility]2018-11-08 10:50:01 Test Item Value Reference Range Interpretation Comments Creatinine Lvl (test code = Creatinine 0.85 0.50-1.40 Lvl) [facility]2018-11-08 10:50:01 Test Item Value Reference Range Interpretation Comments AGAP (test code = AGAP) 9.2 10.0-20.0 [facility]inteFxdddbsQUAPHENYLK9374-18-41 10:50:01 Test Item Value Reference Range Interpretation Comments ACT (TEG) Rapid (test code = ACT (TEG) 136 s 86-118 Rapid) [facility] PointeKpofugtOMKJDOKRZV7740-37-96 10:50:01 Test Item Value Reference Range Interpretation Comments Split Point Rapid (test code = Split 0.6 min Point Rapid) [facility] PointeCbhifjdGFPSFKJRXY7768-02-48 10:50:01 Test Item Value Reference Range Interpretation Comments R-time Rapid (test code = R-time 0.9 min 0.4-0.7 Rapid) [facility] PointeLdzlgycFZCVQQMSFT5571-17-43 10:50:01 Test Item Value Reference Range Interpretation Comments K-time Rapid (test code = K-time 1.4 min 0.6-2.3 Rapid) [facility] PointeYhbhinpOXNYMVTLOV0514-35-46 10:50:01 Test Item Value Reference Range Interpretation Comments Angle Rapid (test code = Angle 71 degrees 64-80 Rapid) [facility] PointeMfdqbzvOEQXZMWGFG2697-36-51 10:50:01 Test Item Value Reference Range Interpretation Comments G-value Rapid (test code = G-value 12.7 5.0-11.6 Rapid) [facility] PointeTlvmfarBFITQTLCZS8031-26-35 10:50:01 Test Item Value Reference Range Interpretation Comments Max Amplitude Rapid (test code = Max 72 mm 52-71 Amplitude Rapid) [facility] PointeEqyssnbWAHKFVWHAE5275-52-98 10:50:01 Test Item Value Reference Range Interpretation Comments Estimated % Lysis Rapid 0.1 See_Comment [Au tomated message] The (test code = Estimated syste m which generated % Lysis Rapid) this result t ransmitted reference range : <=7.5. The reference r boubacar was not used to int erpret this result as normal/abnormal . [facility]inteIekdybsMYUISOPEXX4128-56-07 10:50:01 Test Item Value Reference Range Interpretation Comments Platelet (test code = Platelet) 367 133-450 [facility] PointeUbdawphIBMWNWWUGM0807-46-87 10:50:01 Test Item Value Reference Range Interpretation Comments MPV (test code = MPV) 7.8 7.4-10.4 [facility] PointeTwnlyklOKRCTYELGH5886-93-44 10:50:01 Test Item Value Reference Range Interpretation Comments MCH (test code = MCH) 27.4 pg 27.0-31.0 [facility] PointeMalowtpHSKKGCGEWB5373-79-71 10:50:01 Test Item Value Reference Range Interpretation Comments MCV (test code = MCV) 80.7 80.0-94.0 [facility] PointeVamjkjwRXLNXASHXW9078-22-68 10:50:01 Test Item Value Reference Range Interpretation Comments MCHC (test code = MCHC) 34.0 32.0-36.0 [facility] PointeEzvludlNAZAOGNCBS9212-37-17 10:50:01 Test Item Value Reference Range Interpretation Comments RDW (test code = RDW) 18.9 11.5-14.5 [facility] PointeVruajtlITXNXDGXJQ5348-80-27 10:50:01 Test Item Value Reference Range Interpretation Comments Hct (test code = Hct) 43.3 42.0-54.0 [facility] PointeVesmsobMPZAIAPFSR5065-66-77 10:50:01 Test Item Value Reference Range Interpretation Comments WBC (test code = WBC) 9.3 3.7-10.4 [facility] PointeOrgmoekEKGKDMWNZC6085-62-60 10:50:01 Test Item Value Reference Range Interpretation Comments Hgb (test code = Hgb) 14.7 14.0-18.0 [facility] PointeRtufnndWRROOBLOUK5500-59-71 10:50:01 Test Item Value Reference Range Interpretation Comments RBC (test code = RBC) 5.36 4.70-6.10 [facility] PointeXprjoszEEWDFNSGKJ4579-55-85 10:50:01 Test Item Value Reference Range Interpretation Comments Eosinophils # (test code 0.2 See_Comment [A utomated message] The = Eosinophils #) system whic h generated this result tra nsmitted reference range : <=0.5. The reference r boubacar was not used to int erpret this result as normal/abnormal . [facility] PointeOskfmvwAMTLKSZRQF4980-54-44 10:50:01 Test Item Value Reference Range Interpretation Comments Basophils # (test code 0.1 See_Comment [Aut omated message] The = Basophils #) system which generated this result tra nsmitted reference range : <=0.2. The reference r boubacar was not used to int erpret this result as normal/abnormal . [facility] PointeAywynszMURICALJHH7367-18-89 10:50:01 Test Item Value Reference Range Interpretation Comments Lymphocytes # (test code = Lymphocytes 1.8 1.0-5.5 #) [facility] PointeWmthutmVOZUKGHKUE6302-92-95 10:50:01 Test Item Value Reference Range Interpretation Comments Monocytes # (test code 0.9 See_Comment [Aut omated message] The = Monocytes #) system which generated this result tra nsmitted reference range : <=0.8. The reference r boubacar was not used to int erpret this result as normal/abnormal . [facility] PointeTkudiphOYKFOCJTOR5726-04-59 10:50:01 Test Item Value Reference Range Interpretation Comments Neutrophils # (test code = Neutrophils 6.3 1.5-8.1 #) [facility] PointeGutjpblGGAQBWGRCK5550-65-07 10:50:01 Test Item Value Reference Range Interpretation Comments Eosinophils (test code = 2.0 See_Comment [A utomated message] The Eosinophils) system which ge nerated this result tra nsmitted reference range : <=4.0. The reference r boubacar was not used to int erpret this result as normal/abnormal . [facility] PointeQpmkpcnJOISTSTYFU1194-27-45 10:50:01 Test Item Value Reference Range Interpretation Comments Segs (test code = Segs) 67.4 45.0-75.0 [facility] PointeTuhgapsRNENQCORFU6665-84-41 10:50:01 Test Item Value Reference Range Interpretation Comments Lymphocytes (test code = Lymphocytes) 19.9 20.0-40.0 [facility] PointeRwvwizhLSGKIOUBDL7527-47-52 10:50:01 Test Item Value Reference Range Interpretation Comments Basophils (test code = 1.0 See_Comment [Aut omated message] The Basophils) system which ge nerated this result tra nsmitted reference range : <=1.0. The reference r boubacar was not used to int erpret this result as normal/abnormal . [facility] PointeTxitrctQTQYHJFNWH9144-16-45 10:50:01 Test Item Value Reference Range Interpretation Comments Monocytes (test code = Monocytes) 9.7 2.0-12.0 [facility]2018-11-08 10:50:01 Test Item Value Reference Range Interpretation Comments eGFR (test code = eGFR) 133 [facility]2018-11-08 10:50:01 Test Item Value Reference Range Interpretation Comments Calcium Lvl (test code = Calcium Lvl) 9.4 8.5-10.5 [facility]2018-11-08 10:50:01 Test Item Value Reference Range Interpretation Comments CO2 (test code = CO2) 28 24-32 [facility]2018-11-08 10:50:01 Test Item Value Reference Range Interpretation Comments BUN (test code = BUN) 14 7-22 [facility]2018-11-08 10:50:01 Test Item Value Reference Range Interpretation Comments Glucose Lvl (test code = Glucose Lvl) 89 70-99 [facility]2018-11-08 10:50:01 Test Item Value Reference Range Interpretation Comments Chloride Lvl (test code = Chloride Lvl) 104 95-109 [facility]2018-11-08 10:50:01 Test Item Value Reference Range Interpretation Comments Potassium Lvl (test code = Potassium 4.2 3.5-5.1 Lvl) [facility]2018-11-08 10:50:01 Test Item Value Reference Range Interpretation Comments Sodium Lvl (test code = Sodium Lvl) 137 135-145 [facility]2018-11-08 10:50:01 Test Item Value Reference Range Interpretation Comments Creatinine Lvl (test code = Creatinine 0.85 0.50-1.40 Lvl) [facility]2018-11-08 10:50:01 Test Item Value Reference Range Interpretation Comments AGAP (test code = AGAP) 9.2 10.0-20.0 [facility] PointeOxmsudoELOKPSMXMQ9341-44-97 10:50:01 Test Item Value Reference Range Interpretation Comments ACT (TEG) Rapid (test code = ACT (TEG) 136 s 86-118 Rapid) [facility] PointeZpsukbxJJWDVLWEFU3313-12-48 10:50:01 Test Item Value Reference Range Interpretation Comments Split Point Rapid (test code = Split 0.6 min Point Rapid) [facility] PointeCtzvsreBRSFXZSYJU2194-60-92 10:50:01 Test Item Value Reference Range Interpretation Comments R-time Rapid (test code = R-time 0.9 min 0.4-0.7 Rapid) [facility] PointeTdfxirrOQRESQGIEG1604-39-85 10:50:01 Test Item Value Reference Range Interpretation Comments K-time Rapid (test code = K-time 1.4 min 0.6-2.3 Rapid) [facility] PointeOozwnybPBPJVECIEY4336-15-18 10:50:01 Test Item Value Reference Range Interpretation Comments Angle Rapid (test code = Angle 71 degrees 64-80 Rapid) [facility] PointeFhywmytLMYQEAMSOJ2171-51-65 10:50:01 Test Item Value Reference Range Interpretation Comments G-value Rapid (test code = G-value 12.7 5.0-11.6 Rapid) [facility] PointeOngxuviSGOEQRPVSX8774-57-80 10:50:01 Test Item Value Reference Range Interpretation Comments Max Amplitude Rapid (test code = Max 72 mm 52-71 Amplitude Rapid) [facility] PointeGbgmljgENUXZLBIJV8747-26-97 10:50:01 Test Item Value Reference Range Interpretation Comments Estimated % Lysis Rapid 0.1 See_Comment [Au tomated message] The (test code = Estimated syste m which generated % Lysis Rapid) this result t ransmitted reference range : <=7.5. The reference r boubacar was not used to int erpret this result as normal/abnormal . [facility] PointeRzfzpwnIXCYMOANQG3584-85-01 10:50:01 Test Item Value Reference Range Interpretation Comments Platelet (test code = Platelet) 367 133-450 [facility] PointeUyfcfaqVFSIJKXHZW8664-44-92 10:50:01 Test Item Value Reference Range Interpretation Comments MPV (test code = MPV) 7.8 7.4-10.4 [facility] PointePzcgfbqQBVTCXMQES6156-85-97 10:50:01 Test Item Value Reference Range Interpretation Comments MCH (test code = MCH) 27.4 pg 27.0-31.0 [facility] PointeTufznrmODREVQXXBJ4422-72-95 10:50:01 Test Item Value Reference Range Interpretation Comments MCV (test code = MCV) 80.7 80.0-94.0 [facility] PointeFghhtegPKJPHXXLEB2589-14-53 10:50:01 Test Item Value Reference Range Interpretation Comments MCHC (test code = MCHC) 34.0 32.0-36.0 [facility] PointeNfbirjpBYTWZHIVJS9469-84-31 10:50:01 Test Item Value Reference Range Interpretation Comments RDW (test code = RDW) 18.9 11.5-14.5 [facility] PointeTuokonbZZXZSNJGHS4153-75-55 10:50:01 Test Item Value Reference Range Interpretation Comments Hct (test code = Hct) 43.3 42.0-54.0 [facility] PointeYwgihliDUQXOZARAK9137-98-01 10:50:01 Test Item Value Reference Range Interpretation Comments WBC (test code = WBC) 9.3 3.7-10.4 [facility] PointeMndpnidRVDVUTTHAB2861-56-28 10:50:01 Test Item Value Reference Range Interpretation Comments Hgb (test code = Hgb) 14.7 14.0-18.0 [facility] PointeFcofhmkORKSGAXLLV0414-16-78 10:50:01 Test Item Value Reference Range Interpretation Comments RBC (test code = RBC) 5.36 4.70-6.10 [facility] PointeDuukwoxRFDFZSDXZF3926-97-09 10:50:01 Test Item Value Reference Range Interpretation Comments Eosinophils # (test code 0.2 See_Comment [A utomated message] The = Eosinophils #) system whic h generated this result tra nsmitted reference range : <=0.5. The reference r boubacar was not used to int erpret this result as normal/abnormal . [facility]inteOlnuxcdAMJLFSLBKL2058-45-38 10:50:01 Test Item Value Reference Range Interpretation Comments Basophils # (test code 0.1 See_Comment [Aut omated message] The = Basophils #) system which generated this result tra nsmitted reference range : <=0.2. The reference r boubacar was not used to int erpret this result as normal/abnormal . [facility] PointeJnjnffvKAYIASQFID2389-23-70 10:50:01 Test Item Value Reference Range Interpretation Comments Lymphocytes # (test code = Lymphocytes 1.8 1.0-5.5 #) [facility] PointeYbplojeJGJWCFYQWT5806-69-29 10:50:01 Test Item Value Reference Range Interpretation Comments Monocytes # (test code 0.9 See_Comment [Aut omated message] The = Monocytes #) system which generated this result tra nsmitted reference range : <=0.8. The reference r boubacar was not used to int erpret this result as normal/abnormal . [facility] PointeYdhkjsdINUJJFPVOE1228-16-05 10:50:01 Test Item Value Reference Range Interpretation Comments Neutrophils # (test code = Neutrophils 6.3 1.5-8.1 #) [facility] PointeXpubzuiRPCXDNOUWT9783-91-63 10:50:01 Test Item Value Reference Range Interpretation Comments Eosinophils (test code = 2.0 See_Comment [A utomated message] The Eosinophils) system which ge nerated this result tra nsmitted reference range : <=4.0. The reference r boubacar was not used to int erpret this result as normal/abnormal . [facility] PointeGesudkuJCXGRFOQED6134-04-95 10:50:01 Test Item Value Reference Range Interpretation Comments Segs (test code = Segs) 67.4 45.0-75.0 [facility] PointeZewlrbtJFXHNEIJAM0388-91-05 10:50:01 Test Item Value Reference Range Interpretation Comments Lymphocytes (test code = Lymphocytes) 19.9 20.0-40.0 [facility] PointeYgjbokgXVJAGVVBNV2995-74-74 10:50:01 Test Item Value Reference Range Interpretation Comments Basophils (test code = 1.0 See_Comment [Aut omated message] The Basophils) system which ge nerated this result tra nsmitted reference range : <=1.0. The reference r boubacar was not used to int erpret this result as normal/abnormal . [facility] PointeUhxnhauEWSBLTWUKU1414-12-77 10:50:01 Test Item Value Reference Range Interpretation Comments Monocytes (test code = Monocytes) 9.7 2.0-12.0 [facility]2018-11-08 10:50:01 Test Item Value Reference Range Interpretation Comments eGFR (test code = eGFR) 133 [facility]2018-11-08 10:50:01 Test Item Value Reference Range Interpretation Comments Calcium Lvl (test code = Calcium Lvl) 9.4 8.5-10.5 [facility]2018-11-08 10:50:01 Test Item Value Reference Range Interpretation Comments CO2 (test code = CO2) 28 24-32 [facility]2018-11-08 10:50:01 Test Item Value Reference Range Interpretation Comments BUN (test code = BUN) 14 7-22 [facility]2018-11-08 10:50:01 Test Item Value Reference Range Interpretation Comments Glucose Lvl (test code = Glucose Lvl) 89 70-99 [facility]2018-11-08 10:50:01 Test Item Value Reference Range Interpretation Comments Chloride Lvl (test code = Chloride Lvl) 104 95-109 [facility]2018-11-08 10:50:01 Test Item Value Reference Range Interpretation Comments Potassium Lvl (test code = Potassium 4.2 3.5-5.1 Lvl) [facility]2018-11-08 10:50:01 Test Item Value Reference Range Interpretation Comments Sodium Lvl (test code = Sodium Lvl) 137 135-145 [facility]2018-11-08 10:50:01 Test Item Value Reference Range Interpretation Comments Creatinine Lvl (test code = Creatinine 0.85 0.50-1.40 Lvl) [facility]2018-11-08 10:50:01 Test Item Value Reference Range Interpretation Comments AGAP (test code = AGAP) 9.2 10.0-20.0 [facility] PointeKhjrbduCKIKRQINIF8318-94-89 10:50:01 Test Item Value Reference Range Interpretation Comments ACT (TEG) Rapid (test code = ACT (TEG) 136 s 86-118 Rapid) [facility] PointeWrorcotWIVVXWXHKU6889-41-55 10:50:01 Test Item Value Reference Range Interpretation Comments Split Point Rapid (test code = Split 0.6 min Point Rapid) [facility] PointeLqexcgoSIDLYFPCYH6162-09-33 10:50:01 Test Item Value Reference Range Interpretation Comments R-time Rapid (test code = R-time 0.9 min 0.4-0.7 Rapid) [facility] PointeRrhwpnjCRONUDJGKD7744-50-27 10:50:01 Test Item Value Reference Range Interpretation Comments K-time Rapid (test code = K-time 1.4 min 0.6-2.3 Rapid) [facility] PointeCnpqdurMDVDWJUBTY2123-83-47 10:50:01 Test Item Value Reference Range Interpretation Comments Angle Rapid (test code = Angle 71 degrees 64-80 Rapid) [facility] PointeMrmuoqoTDBNTAHOOU9835-29-06 10:50:01 Test Item Value Reference Range Interpretation Comments G-value Rapid (test code = G-value 12.7 5.0-11.6 Rapid) [facility] PointeYvxbqlsNOVBMBMHPV5467-58-43 10:50:01 Test Item Value Reference Range Interpretation Comments Max Amplitude Rapid (test code = Max 72 mm 52-71 Amplitude Rapid) [facility] PointeHhjltebTLFERVXKGQ5555-45-03 10:50:01 Test Item Value Reference Range Interpretation Comments Estimated % Lysis Rapid 0.1 See_Comment [Au tomated message] The (test code = Estimated syste m which generated % Lysis Rapid) this result t ransmitted reference range : <=7.5. The reference r boubacar was not used to int erpret this result as normal/abnormal . [facility] PointeCzreivcXOEUDSFXUZ2596-53-50 10:50:01 Test Item Value Reference Range Interpretation Comments Platelet (test code = Platelet) 367 133-450 [facility] PointeQnoelfxRIRPRMPKMG5854-06-53 10:50:01 Test Item Value Reference Range Interpretation Comments MPV (test code = MPV) 7.8 7.4-10.4 [facility] PointeTetxdusOIMQXHZWKK0088-75-02 10:50:01 Test Item Value Reference Range Interpretation Comments MCH (test code = MCH) 27.4 pg 27.0-31.0 [facility] PointeJntwrhjWPOGGWYVSR2705-95-08 10:50:01 Test Item Value Reference Range Interpretation Comments MCV (test code = MCV) 80.7 80.0-94.0 [facility] PointeLzpsxpdVVZJLJQQYJ9092-05-11 10:50:01 Test Item Value Reference Range Interpretation Comments MCHC (test code = MCHC) 34.0 32.0-36.0 [facility] PointeXyfrpcmYUCEQZOVZO1356-22-38 10:50:01 Test Item Value Reference Range Interpretation Comments RDW (test code = RDW) 18.9 11.5-14.5 [facility] PointeAcyrmxmNCRKMWGZXJ8850-24-95 10:50:01 Test Item Value Reference Range Interpretation Comments Hct (test code = Hct) 43.3 42.0-54.0 [facility] PointeAwcdogfWDIYMJXVGM7671-76-44 10:50:01 Test Item Value Reference Range Interpretation Comments WBC (test code = WBC) 9.3 3.7-10.4 [facility] PointeAkrjoqnVVJFCWPGJH9846-09-00 10:50:01 Test Item Value Reference Range Interpretation Comments Hgb (test code = Hgb) 14.7 14.0-18.0 [facility] PointeNofkpcwFZKHYZIYNX1543-89-43 10:50:01 Test Item Value Reference Range Interpretation Comments RBC (test code = RBC) 5.36 4.70-6.10 [facility] PointeDjrygfjOJOSTHXHBM4861-27-36 10:50:01 Test Item Value Reference Range Interpretation Comments Eosinophils # (test code 0.2 See_Comment [A utomated message] The = Eosinophils #) system whic h generated this result tra nsmitted reference range : <=0.5. The reference r boubacar was not used to int erpret this result as normal/abnormal . [facility] PointeBgvxrzfRXJBZBEPMZ6302-83-33 10:50:01 Test Item Value Reference Range Interpretation Comments Basophils # (test code 0.1 See_Comment [Aut omated message] The = Basophils #) system which generated this result tra nsmitted reference range : <=0.2. The reference r boubacar was not used to int erpret this result as normal/abnormal . [facility] PointeClgasosRONJZJHKTL5953-38-11 10:50:01 Test Item Value Reference Range Interpretation Comments Lymphocytes # (test code = Lymphocytes 1.8 1.0-5.5 #) [facility] PointeAfdkffsYVTCAGKIAJ2953-05-69 10:50:01 Test Item Value Reference Range Interpretation Comments Monocytes # (test code 0.9 See_Comment [Aut omated message] The = Monocytes #) system which generated this result tra nsmitted reference range : <=0.8. The reference r boubacar was not used to int erpret this result as normal/abnormal . [facility] PointeFikkuwuCJQRXOCBAA6861-27-77 10:50:01 Test Item Value Reference Range Interpretation Comments Neutrophils # (test code = Neutrophils 6.3 1.5-8.1 #) [facility] PointeUfnnutbPAGSTXPEYP1417-77-10 10:50:01 Test Item Value Reference Range Interpretation Comments Eosinophils (test code = 2.0 See_Comment [A utomated message] The Eosinophils) system which ge nerated this result tra nsmitted reference range : <=4.0. The reference r boubacar was not used to int erpret this result as normal/abnormal . [facility] PointeHkpvrmzEIIQZGVINN0050-73-43 10:50:01 Test Item Value Reference Range Interpretation Comments Segs (test code = Segs) 67.4 45.0-75.0 [facility] PointeSdtnfueMPUZAFNEVS6390-24-43 10:50:01 Test Item Value Reference Range Interpretation Comments Lymphocytes (test code = Lymphocytes) 19.9 20.0-40.0 [facility] PointeRmjuchzQCJUGQMRHQ1124-49-67 10:50:01 Test Item Value Reference Range Interpretation Comments Basophils (test code = 1.0 See_Comment [Aut omated message] The Basophils) system which ge nerated this result tra nsmitted reference range : <=1.0. The reference r boubacar was not used to int erpret this result as normal/abnormal . [facility] PointeJkcxildJKJIASTELI3318-27-68 10:50:01 Test Item Value Reference Range Interpretation Comments Monocytes (test code = Monocytes) 9.7 2.0-12.0 [facility]2018-11-08 10:50:01 Test Item Value Reference Range Interpretation Comments eGFR (test code = eGFR) 133 [facility]2018-11-08 10:50:01 Test Item Value Reference Range Interpretation Comments Calcium Lvl (test code = Calcium Lvl) 9.4 8.5-10.5 [facility]2018-11-08 10:50:01 Test Item Value Reference Range Interpretation Comments CO2 (test code = CO2) 28 24-32 [facility]2018-11-08 10:50:01 Test Item Value Reference Range Interpretation Comments BUN (test code = BUN) 14 7-22 [facility]2018-11-08 10:50:01 Test Item Value Reference Range Interpretation Comments Glucose Lvl (test code = Glucose Lvl) 89 70-99 [facility]2018-11-08 10:50:01 Test Item Value Reference Range Interpretation Comments Chloride Lvl (test code = Chloride Lvl) 104 95-109 [facility]2018-11-08 10:50:01 Test Item Value Reference Range Interpretation Comments Potassium Lvl (test code = Potassium 4.2 3.5-5.1 Lvl) [facility]2018-11-08 10:50:01 Test Item Value Reference Range Interpretation Comments Sodium Lvl (test code = Sodium Lvl) 137 135-145 [facility]2018-11-08 10:50:01 Test Item Value Reference Range Interpretation Comments Creatinine Lvl (test code = Creatinine 0.85 0.50-1.40 Lvl) [facility]2018-11-08 10:50:01 Test Item Value Reference Range Interpretation Comments AGAP (test code = AGAP) 9.2 10.0-20.0 [facility] PointeFpbmmosPODKAUITHB5138-24-29 10:50:01 Test Item Value Reference Range Interpretation Comments ACT (TEG) Rapid (test code = ACT (TEG) 136 s 86-118 Rapid) [facility] PointePyhoksdSFAYVWAIDC3959-92-68 10:50:01 Test Item Value Reference Range Interpretation Comments Split Point Rapid (test code = Split 0.6 min Point Rapid) [facility] PointeAzvghfiDZUCUEWUBN0176-37-31 10:50:01 Test Item Value Reference Range Interpretation Comments R-time Rapid (test code = R-time 0.9 min 0.4-0.7 Rapid) [facility] PointeFmoepwtYQRAHSQAPJ1971-19-28 10:50:01 Test Item Value Reference Range Interpretation Comments K-time Rapid (test code = K-time 1.4 min 0.6-2.3 Rapid) [facility] PointeUgnyqizXGSSSDHNEB6182-72-05 10:50:01 Test Item Value Reference Range Interpretation Comments Angle Rapid (test code = Angle 71 degrees 64-80 Rapid) [facility] [facility]inteUqalhyuEMRLGANWLO5755-44-76 10:50:01 Test Item Value Reference Range Interpretation Comments G-value Rapid (test code = G-value 12.7 5.0-11.6 Rapid) [facility]inteMgelxrqUPBANQDWYV4686-49-71 10:50:01 Test Item Value Reference Range Interpretation Comments Max Amplitude Rapid (test code = Max 72 mm 52-71 Amplitude Rapid) [facility]inteWfonfjaLTAZKHEBII3307-19-19 10:50:01 Test Item Value Reference Range Interpretation Comments Estimated % Lysis Rapid 0.1 See_Comment [Au tomated message] The (test code = Estimated syste m which generated % Lysis Rapid) this result t ransmitted reference range : <=7.5. The reference r boubacar was not used to int erpret this result as normal/abnormal . [facility]inteTtcyqbnDWOLQFDFOT3436-23-38 10:50:01 Test Item Value Reference Range Interpretation Comments Platelet (test code = Platelet) 367 133-450 [facility] PointeNnnfgbkRCMWXIQTNY0586-91-05 10:50:01 Test Item Value Reference Range Interpretation Comments MPV (test code = MPV) 7.8 7.4-10.4 [facility] PointeAkcjboaFAQCZWGBVL1700-87-66 10:50:01 Test Item Value Reference Range Interpretation Comments MCH (test code = MCH) 27.4 pg 27.0-31.0 [facility] PointeMgahpgwJTNCYJWINM3992-91-33 10:50:01 Test Item Value Reference Range Interpretation Comments MCV (test code = MCV) 80.7 80.0-94.0 [facility] PointeBksngjtOQWBDUWUMY3890-43-98 10:50:01 Test Item Value Reference Range Interpretation Comments MCHC (test code = MCHC) 34.0 32.0-36.0 [facility] PointeZpvfrdvQCRRHEXLPG9506-63-19 10:50:01 Test Item Value Reference Range Interpretation Comments RDW (test code = RDW) 18.9 11.5-14.5 [facility] PointeKjzpwjyUWMVEFHRJT8057-70-61 10:50:01 Test Item Value Reference Range Interpretation Comments Hct (test code = Hct) 43.3 42.0-54.0 [facility] PointeOstwianCIDQVYCSQT2561-59-32 10:50:01 Test Item Value Reference Range Interpretation Comments WBC (test code = WBC) 9.3 3.7-10.4 [facility] PointePvrakoxAYMZZICDLB8971-35-01 10:50:01 Test Item Value Reference Range Interpretation Comments Hgb (test code = Hgb) 14.7 14.0-18.0 [facility]inteOgsqcimKJUXWPNHJB3718-67-55 10:50:01 Test Item Value Reference Range Interpretation Comments RBC (test code = RBC) 5.36 4.70-6.10 [facility] PointeRtibhcoQKEWWBXNMZ9214-95-62 10:50:01 Test Item Value Reference Range Interpretation Comments Eosinophils # (test code 0.2 See_Comment [A utomated message] The = Eosinophils #) system whic h generated this result tra nsmitted reference range : <=0.5. The reference r boubacar was not used to int erpret this result as normal/abnormal . [facility] PointeOidtsmsSZEFMKNLBG8283-82-55 10:50:01 Test Item Value Reference Range Interpretation Comments Basophils # (test code 0.1 See_Comment [Aut omated message] The = Basophils #) system which generated this result tra nsmitted reference range : <=0.2. The reference r boubacar was not used to int erpret this result as normal/abnormal . [facility]inteOlkldgyRBXHDYNRGD9687-11-82 10:50:01 Test Item Value Reference Range Interpretation Comments Lymphocytes # (test code = Lymphocytes 1.8 1.0-5.5 #) [facility] PointeCfduykjORMDAWILUJ1071-87-68 10:50:01 Test Item Value Reference Range Interpretation Comments Monocytes # (test code 0.9 See_Comment [Aut omated message] The = Monocytes #) system which generated this result tra nsmitted reference range : <=0.8. The reference r boubacar was not used to int erpret this result as normal/abnormal . [facility] PointeVvzchoaHUYJPBQOVM9475-45-94 10:50:01 Test Item Value Reference Range Interpretation Comments Neutrophils # (test code = Neutrophils 6.3 1.5-8.1 #) [facility] PointeZimjysrAGAACBIARL2162-64-22 10:50:01 Test Item Value Reference Range Interpretation Comments Eosinophils (test code = 2.0 See_Comment [A utomated message] The Eosinophils) system which ge nerated this result tra nsmitted reference range : <=4.0. The reference r boubacar was not used to int erpret this result as normal/abnormal . [facility] PointeUwugvzkJFJXHSEBYK1328-14-47 10:50:01 Test Item Value Reference Range Interpretation Comments Segs (test code = Segs) 67.4 45.0-75.0 [facility] PointeTfihlfmZWBRYDKNLH1934-39-99 10:50:01 Test Item Value Reference Range Interpretation Comments Lymphocytes (test code = Lymphocytes) 19.9 20.0-40.0 [facility] PointeOkvhnqwGVJIWZRYDB3136-55-41 10:50:01 Test Item Value Reference Range Interpretation Comments Basophils (test code = 1.0 See_Comment [Aut omated message] The Basophils) system which ge nerated this result tra nsmitted reference range : <=1.0. The reference r boubacar was not used to int erpret this result as normal/abnormal . [facility] PointeBgrmjppVYGJPIHXAB3677-05-79 10:50:01 Test Item Value Reference Range Interpretation Comments Monocytes (test code = Monocytes) 9.7 2.0-12.0 [facility]2018-11-08 10:50:01 Test Item Value Reference Range Interpretation Comments eGFR (test code = eGFR) 133 [facility]2018-11-08 10:50:01 Test Item Value Reference Range Interpretation Comments Calcium Lvl (test code = Calcium Lvl) 9.4 8.5-10.5 [facility]2018-11-08 10:50:01 Test Item Value Reference Range Interpretation Comments CO2 (test code = CO2) 28 24-32 [facility]2018-11-08 10:50:01 Test Item Value Reference Range Interpretation Comments BUN (test code = BUN) 14 7-22 [facility]2018-11-08 10:50:01 Test Item Value Reference Range Interpretation Comments Glucose Lvl (test code = Glucose Lvl) 89 70-99 [facility]2018-11-08 10:50:01 Test Item Value Reference Range Interpretation Comments Chloride Lvl (test code = Chloride Lvl) 104 95-109 [facility]2018-11-08 10:50:01 Test Item Value Reference Range Interpretation Comments Potassium Lvl (test code = Potassium 4.2 3.5-5.1 Lvl) [facility]2018-11-08 10:50:01 Test Item Value Reference Range Interpretation Comments Sodium Lvl (test code = Sodium Lvl) 137 135-145 [facility]2018-11-08 10:50:01 Test Item Value Reference Range Interpretation Comments Creatinine Lvl (test code = Creatinine 0.85 0.50-1.40 Lvl) [facility]2018-11-08 10:50:01 Test Item Value Reference Range Interpretation Comments AGAP (test code = AGAP) 9.2 10.0-20.0 [facility] PointeGzftpbxHAAYVDMGDD4188-75-36 10:50:01 Test Item Value Reference Range Interpretation Comments ACT (TEG) Rapid (test code = ACT (TEG) 136 s 86-118 Rapid) [facility]inteJbnzbgkDQDFCISCND1776-92-45 10:50:01 Test Item Value Reference Range Interpretation Comments Split Point Rapid (test code = Split 0.6 min Point Rapid) [facility]inteAfaawhsAUJQTCVHUM0647-55-58 10:50:01 Test Item Value Reference Range Interpretation Comments R-time Rapid (test code = R-time 0.9 min 0.4-0.7 Rapid) [facility] PointeCyrxdvdJLKWPNCCVW1839-97-08 10:50:01 Test Item Value Reference Range Interpretation Comments K-time Rapid (test code = K-time 1.4 min 0.6-2.3 Rapid) [facility] PointeYnjanmoUSATNAKNOV6295-59-90 10:50:01 Test Item Value Reference Range Interpretation Comments Angle Rapid (test code = Angle 71 degrees 64-80 Rapid) [facility]inteJjdzjhjOFVKUJJSDU2122-79-04 10:50:01 Test Item Value Reference Range Interpretation Comments G-value Rapid (test code = G-value 12.7 5.0-11.6 Rapid) [facility]inteUptuzxgDXAVPEQAMG2052-08-14 10:50:01 Test Item Value Reference Range Interpretation Comments Max Amplitude Rapid (test code = Max 72 mm 52-71 Amplitude Rapid) [facility] PointeLzpzfdnSYEMAXFPDR3533-69-71 10:50:01 Test Item Value Reference Range Interpretation Comments Estimated % Lysis Rapid 0.1 See_Comment [Au tomated message] The (test code = Estimated syste m which generated % Lysis Rapid) this result t ransmitted reference range : <=7.5. The reference r boubacar was not used to int erpret this result as normal/abnormal . [facility] PointeAxtugdwPGXLKFRCWB2941-15-43 10:50:01 Test Item Value Reference Range Interpretation Comments Platelet (test code = Platelet) 367 133-450 [facility] PointeQsqoptsYBUELWMAKE6842-46-38 10:50:01 Test Item Value Reference Range Interpretation Comments MPV (test code = MPV) 7.8 7.4-10.4 [facility] PointeEksusqoAXKCLMETAM5703-01-41 10:50:01 Test Item Value Reference Range Interpretation Comments MCH (test code = MCH) 27.4 pg 27.0-31.0 [facility] PointeSwjonqeMIGUJNIQGK9817-23-92 10:50:01 Test Item Value Reference Range Interpretation Comments MCV (test code = MCV) 80.7 80.0-94.0 [facility] PointeBydlxpbZAYBRBAQUP6495-54-24 10:50:01 Test Item Value Reference Range Interpretation Comments MCHC (test code = MCHC) 34.0 32.0-36.0 [facility] PointeEzwfxtjGIPFZTYOHR6305-01-89 10:50:01 Test Item Value Reference Range Interpretation Comments RDW (test code = RDW) 18.9 11.5-14.5 [facility] PointeHcfohnpMSXONRDORL3933-13-29 10:50:01 Test Item Value Reference Range Interpretation Comments Hct (test code = Hct) 43.3 42.0-54.0 [facility] PointeXvhygozSGQQICWLZU9686-80-07 10:50:01 Test Item Value Reference Range Interpretation Comments WBC (test code = WBC) 9.3 3.7-10.4 [facility] PointeLclaehcKRMPRHCHES1956-56-17 10:50:01 Test Item Value Reference Range Interpretation Comments Hgb (test code = Hgb) 14.7 14.0-18.0 [facility] PointeRtrxziyDZSSGYSTNA6759-91-77 10:50:01 Test Item Value Reference Range Interpretation Comments RBC (test code = RBC) 5.36 4.70-6.10 [facility] PointeIyhoqknGHNALLIAXV0118-83-82 10:50:01 Test Item Value Reference Range Interpretation Comments Eosinophils # (test code 0.2 See_Comment [A utomated message] The = Eosinophils #) system whic h generated this result tra nsmitted reference range : <=0.5. The reference r boubacar was not used to int erpret this result as normal/abnormal . [facility] PointeMajohtjHXBDYJGPZN6581-71-33 10:50:01 Test Item Value Reference Range Interpretation Comments Basophils # (test code 0.1 See_Comment [Aut omated message] The = Basophils #) system which generated this result tra nsmitted reference range : <=0.2. The reference r boubacar was not used to int erpret this result as normal/abnormal . [facility] PointeStvvnrdEXXPGIFVTN4464-05-84 10:50:01 Test Item Value Reference Range Interpretation Comments Lymphocytes # (test code = Lymphocytes 1.8 1.0-5.5 #) [facility] PointeKkujoodWXHFYABXLV3737-76-68 10:50:01 Test Item Value Reference Range Interpretation Comments Monocytes # (test code 0.9 See_Comment [Aut omated message] The = Monocytes #) system which generated this result tra nsmitted reference range : <=0.8. The reference r boubacar was not used to int erpret this result as normal/abnormal . [facility] PointeRvxhnhvGPEZJLQNAF4298-55-76 10:50:01 Test Item Value Reference Range Interpretation Comments Neutrophils # (test code = Neutrophils 6.3 1.5-8.1 #) [facility]inteQxbvvzbTYZOTCFRII9441-87-10 10:50:01 Test Item Value Reference Range Interpretation Comments Eosinophils (test code = 2.0 See_Comment [A utomated message] The Eosinophils) system which ge nerated this result tra nsmitted reference range : <=4.0. The reference r boubacar was not used to int erpret this result as normal/abnormal . [facility] PointeHyybtdnXMXRCFUFER5851-66-01 10:50:01 Test Item Value Reference Range Interpretation Comments Segs (test code = Segs) 67.4 45.0-75.0 [facility] PointeQshljctAPODPSCUWY0471-53-61 10:50:01 Test Item Value Reference Range Interpretation Comments Lymphocytes (test code = Lymphocytes) 19.9 20.0-40.0 [facility] PointeOwluyeoEVLGNAVUTY0815-25-38 10:50:01 Test Item Value Reference Range Interpretation Comments Basophils (test code = 1.0 See_Comment [Aut omated message] The Basophils) system which ge nerated this result tra nsmitted reference range : <=1.0. The reference r boubacar was not used to int erpret this result as normal/abnormal . [facility] PointeHydfmsxTDEUXBTAKY8865-19-05 10:50:01 Test Item Value Reference Range Interpretation Comments Monocytes (test code = Monocytes) 9.7 2.0-12.0 [place] 801258-05-08 05:42:00 Test Item Value Reference Range Interpretation Comments B/C Ratio (test code = B/C Ratio) 17 1 6-25 [facility]2018-05-08 05:42:00 Test Item Value Reference Range Interpretation Comments Globulin (test code = Globulin) 4.3 2.7-4.2 [facility]2018-05-08 05:42:00 Test Item Value Reference Range Interpretation Comments A/G Ratio (test code = A/G Ratio) 0.7 1 0.7-1.6 [facility]2018-05-08 05:42:00 Test Item Value Reference Range Interpretation Comments AGAP (test code = AGAP) 14.4 10.0-20.0 [facility]2018-05-08 05:42:00 Test Item Value Reference Range Interpretation Comments eGFR (test code = eGFR) 113 [facility]2018-05-08 05:42:00 Test Item Value Reference Range Interpretation Comments Alk Phos (test code = Alk Phos) 76 39-136 [facility]2018-05-08 05:42:00 Test Item Value Reference Range Interpretation Comments ALT (test code = ALT) 35 See_Comment [Auto mated message] The system which ge nerated this result transmit lester reference range : <=65. The reference range was not used to interpr et this result as dany l/abnormal. [facility]2018-05-08 05:42:00 Test Item Value Reference Range Interpretation Comments Albumin Lvl (test code = Albumin Lvl) 2.8 3.5-5.0 [facility]2018-05-08 05:42:00 Test Item Value Reference Range Interpretation Comments Total Protein (test code = Total 7.1 6.4-8.4 Protein) [facility]2018-05-08 05:42:00 Test Item Value Reference Range Interpretation Comments Calcium Lvl (test code = Calcium Lvl) 8.7 8.5-10.5 [facility]2018-05-08 05:42:00 Test Item Value Reference Range Interpretation Comments AST (test code = AST) 18 See_Comment [Auto mated message] The system which ge nerated this result transmit lester reference range : <=37. The reference range was not used to interpr et this result as dany l/abnormal. [facility]2018-05-08 05:42:00 Test Item Value Reference Range Interpretation Comments Bili Total (test code = Bili Total) 0.3 0.2-1.3 [place] 801258-05-08 05:42:00 Test Item Value Reference Range Interpretation Comments Potassium Lvl (test code = Potassium 4.4 3.5-5.1 Lvl) [facility]2018-05-08 05:42:00 Test Item Value Reference Range Interpretation Comments Chloride Lvl (test code = Chloride Lvl) 109 95-109 [facility]2018-05-08 05:42:00 Test Item Value Reference Range Interpretation Comments CO2 (test code = CO2) 23 24-32 [place] 801258-05-08 05:42:00 Test Item Value Reference Range Interpretation Comments Glucose Lvl (test code = Glucose Lvl) 114 70-99 [facility]2018-05-08 05:42:00 Test Item Value Reference Range Interpretation Comments Creatinine Lvl (test code = Creatinine 1.01 0.50-1.40 Lvl) [facility]2018-05-08 05:42:00 Test Item Value Reference Range Interpretation Comments BUN (test code = BUN) 17 7-22 [facility]2018-05-08 05:42:00 Test Item Value Reference Range Interpretation Comments Sodium Lvl (test code = Sodium Lvl) 142 135-145 [facility] PointeRfnwrpwZUKPLJZYHE5962-16-26 05:42:00 Test Item Value Reference Range Interpretation Comments Basophils (test code = 0.6 See_Comment [Aut omated message] The Basophils) system which ge nerated this result tra nsmitted reference range : <=1.0. The reference r boubacar was not used to int erpret this result as normal/abnormal . [facility] PointeLvbkrpwJBBXRQLRWT1681-78-06 05:42:00 Test Item Value Reference Range Interpretation Comments Segs-Bands # (test code = Segs-Bands #) 4.8 1.5-8.1 [place] 455988-05-08 05:42:00 Test Item Value Reference Range Interpretation Comments Monocytes # (test code 0.7 See_Comment [Aut omated message] The = Monocytes #) system which generated this result tra nsmitted reference range : <=0.8. The reference r boubacar was not used to int erpret this result as normal/abnormal . [facility] PointeAjbkltuBPANSNFEQF8342-19-32 05:42:00 Test Item Value Reference Range Interpretation Comments Lymphocytes # (test code = Lymphocytes 1.9 1.0-5.5 #) [facility] PointeAsuyekrYYADHOOYTR5842-52-72 05:42:00 Test Item Value Reference Range Interpretation Comments Monocytes (test code = Monocytes) 9.4 2.0-12.0 [facility] PointeErjwzfjUYACRDYWED3819-45-21 05:42:00 Test Item Value Reference Range Interpretation Comments Eosinophils # (test code 0.2 See_Comment [A utomated message] The = Eosinophils #) system whic h generated this result tra nsmitted reference range : <=0.5. The reference r boubacar was not used to int erpret this result as normal/abnormal . [facility] PointeIaiukmwMHEFFCJEKJ0371-40-01 05:42:00 Test Item Value Reference Range Interpretation Comments Eosinophils (test code = 2.9 See_Comment [A utomated message] The Eosinophils) system which ge nerated this result tra nsmitted reference range : <=4.0. The reference r boubacar was not used to int erpret this result as normal/abnormal . [facility] PointeZtkgesuFAAVDHLVIN3911-03-56 05:42:00 Test Item Value Reference Range Interpretation Comments Segs (test code = Segs) 62.2 45.0-75.0 [facility] PointeKyoclasTEBNLQCEQZ7804-85-86 05:42:00 Test Item Value Reference Range Interpretation Comments Lymphocytes (test code = Lymphocytes) 24.9 20.0-40.0 [facility] PointeXktkwqzULYTKTLGNB3916-78-82 05:42:00 Test Item Value Reference Range Interpretation Comments MCH (test code = MCH) 27.5 pg 27.0-31.0 [facility] PointeHzjrsdrQDAMWNOFPS0060-89-93 05:42:00 Test Item Value Reference Range Interpretation Comments MCV (test code = MCV) 85.3 80.0-94.0 [facility] PointePftezcuJZIRPNERHF0690-78-38 05:42:00 Test Item Value Reference Range Interpretation Comments Hct (test code = Hct) 43.9 42.0-54.0 [facility] PointeHutjkizOEHVIZWVUE0058-68-24 05:42:00 Test Item Value Reference Range Interpretation Comments Hgb (test code = Hgb) 14.2 14.0-18.0 [facility] PointeGrfecziCQNPTTHNSY1784-71-72 05:42:00 Test Item Value Reference Range Interpretation Comments WBC (test code = WBC) 7.7 3.7-10.4 [facility] PointeRwuarosONBBXCSKVR8971-87-76 05:42:00 Test Item Value Reference Range Interpretation Comments RBC (test code = RBC) 5.15 4.70-6.10 [facility] PointeWnmbbraSYECJSNTAH3503-72-11 05:42:00 Test Item Value Reference Range Interpretation Comments MPV (test code = MPV) 8.4 7.4-10.4 [facility] PointeGwhnkmmAAMGXKGCSA5415-31-24 05:42:00 Test Item Value Reference Range Interpretation Comments MCHC (test code = MCHC) 32.3 32.0-36.0 [facility] PointeRlzimwiFHBJUQYOBM5491-69-54 05:42:00 Test Item Value Reference Range Interpretation Comments RDW (test code = RDW) 17.3 11.5-14.5 [facility] PointeRxifobsLWUJIZHDTS9788-42-88 05:42:00 Test Item Value Reference Range Interpretation Comments Platelet (test code = Platelet) 317 133-450 [facility]2018-05-08 05:42:00 Test Item Value Reference Range Interpretation Comments B/C Ratio (test code = B/C Ratio) 17 1 6-25 [facility]2018-05-08 05:42:00 Test Item Value Reference Range Interpretation Comments Globulin (test code = Globulin) 4.3 2.7-4.2 [facility]2018-05-08 05:42:00 Test Item Value Reference Range Interpretation Comments A/G Ratio (test code = A/G Ratio) 0.7 1 0.7-1.6 [facility]2018-05-08 05:42:00 Test Item Value Reference Range Interpretation Comments AGAP (test code = AGAP) 14.4 10.0-20.0 [facility]2018-05-08 05:42:00 Test Item Value Reference Range Interpretation Comments eGFR (test code = eGFR) 113 [facility]2018-05-08 05:42:00 Test Item Value Reference Range Interpretation Comments Alk Phos (test code = Alk Phos) 76 39-136 [facility]2018-05-08 05:42:00 Test Item Value Reference Range Interpretation Comments ALT (test code = ALT) 35 See_Comment [Auto mated message] The system which ge nerated this result transmit lester reference range : <=65. The reference range was not used to interpr et this result as dany l/abnormal. [facility]2018-05-08 05:42:00 Test Item Value Reference Range Interpretation Comments Albumin Lvl (test code = Albumin Lvl) 2.8 3.5-5.0 [facility]2018-05-08 05:42:00 Test Item Value Reference Range Interpretation Comments Total Protein (test code = Total 7.1 6.4-8.4 Protein) [facility]2018-05-08 05:42:00 Test Item Value Reference Range Interpretation Comments Calcium Lvl (test code = Calcium Lvl) 8.7 8.5-10.5 [facility]2018-05-08 05:42:00 Test Item Value Reference Range Interpretation Comments AST (test code = AST) 18 See_Comment [Auto mated message] The system which ge nerated this result transmit lester reference range : <=37. The reference range was not used to interpr et this result as dany l/abnormal. [facility]2018-05-08 05:42:00 Test Item Value Reference Range Interpretation Comments Bili Total (test code = Bili Total) 0.3 0.2-1.3 [facility]2018-05-08 05:42:00 Test Item Value Reference Range Interpretation Comments Potassium Lvl (test code = Potassium 4.4 3.5-5.1 Lvl) [facility]2018-05-08 05:42:00 Test Item Value Reference Range Interpretation Comments Chloride Lvl (test code = Chloride Lvl) 109 95-109 [facility]2018-05-08 05:42:00 Test Item Value Reference Range Interpretation Comments CO2 (test code = CO2) 23 24-32 [facility]2018-05-08 05:42:00 Test Item Value Reference Range Interpretation Comments Glucose Lvl (test code = Glucose Lvl) 114 70-99 [place] 801258-05-08 05:42:00 Test Item Value Reference Range Interpretation Comments Creatinine Lvl (test code = Creatinine 1.01 0.50-1.40 Lvl) [facility]2018-05-08 05:42:00 Test Item Value Reference Range Interpretation Comments BUN (test code = BUN) 17 7-22 [facility]2018-05-08 05:42:00 Test Item Value Reference Range Interpretation Comments Sodium Lvl (test code = Sodium Lvl) 142 135-145 [facility]intePlgblgaLETWUEGIAN1046-66-30 05:42:00 Test Item Value Reference Range Interpretation Comments Basophils (test code = 0.6 See_Comment [Aut omated message] The Basophils) system which ge nerated this result tra nsmitted reference range : <=1.0. The reference r boubacar was not used to int erpret this result as normal/abnormal . [facility]inteTytavhwEEHIIQFHJF2436-67-75 05:42:00 Test Item Value Reference Range Interpretation Comments Segs-Bands # (test code = Segs-Bands #) 4.8 1.5-8.1 [facility]intePgeitrpTLNQVPROAW8764-35-74 05:42:00 Test Item Value Reference Range Interpretation Comments Monocytes # (test code 0.7 See_Comment [Aut omated message] The = Monocytes #) system which generated this result tra nsmitted reference range : <=0.8. The reference r boubacar was not used to int erpret this result as normal/abnormal . [facility] PointeAtdrhgvCAZYLYXRMH3248-94-14 05:42:00 Test Item Value Reference Range Interpretation Comments Lymphocytes # (test code = Lymphocytes 1.9 1.0-5.5 #) [facility] PointeJzdndlnCWMCOFHARG6941-93-56 05:42:00 Test Item Value Reference Range Interpretation Comments Monocytes (test code = Monocytes) 9.4 2.0-12.0 [facility] PointeJpyyfljXAINRINRXI4330-37-41 05:42:00 Test Item Value Reference Range Interpretation Comments Eosinophils # (test code 0.2 See_Comment [A utomated message] The = Eosinophils #) system whic h generated this result tra nsmitted reference range : <=0.5. The reference r boubacar was not used to int erpret this result as normal/abnormal . [facility] PointeDbrswejNAFEYKWVMK6575-91-90 05:42:00 Test Item Value Reference Range Interpretation Comments Eosinophils (test code = 2.9 See_Comment [A utomated message] The Eosinophils) system which ge nerated this result tra nsmitted reference range : <=4.0. The reference r boubacar was not used to int erpret this result as normal/abnormal . [facility] PointeWlozdcpRKAUPHWWZV2388-05-05 05:42:00 Test Item Value Reference Range Interpretation Comments Segs (test code = Segs) 62.2 45.0-75.0 [facility] PointeLuhrjlzQACOEIKAZE0155-06-29 05:42:00 Test Item Value Reference Range Interpretation Comments Lymphocytes (test code = Lymphocytes) 24.9 20.0-40.0 [facility]intePnliptvQXZLWYQVCX5434-22-65 05:42:00 Test Item Value Reference Range Interpretation Comments MCH (test code = MCH) 27.5 pg 27.0-31.0 [facility] PointeLandvvbZTFJCNBLKI5374-81-56 05:42:00 Test Item Value Reference Range Interpretation Comments MCV (test code = MCV) 85.3 80.0-94.0 [facility] PointePjjgyerHOXNRVGTAX2273-10-86 05:42:00 Test Item Value Reference Range Interpretation Comments Hct (test code = Hct) 43.9 42.0-54.0 [facility] PointeHpuzftvBHPITPJSIC8908-60-62 05:42:00 Test Item Value Reference Range Interpretation Comments Hgb (test code = Hgb) 14.2 14.0-18.0 [facility] PointeEwtsabmSCCGMHQHEG5483-33-53 05:42:00 Test Item Value Reference Range Interpretation Comments WBC (test code = WBC) 7.7 3.7-10.4 [facility] PointeQvcavneKWWRNBYFQJ1392-91-46 05:42:00 Test Item Value Reference Range Interpretation Comments RBC (test code = RBC) 5.15 4.70-6.10 [facility] PointeFnvzvkmCFVKKQOWPW9504-19-98 05:42:00 Test Item Value Reference Range Interpretation Comments MPV (test code = MPV) 8.4 7.4-10.4 [facility] PointePbcqsulOQTDQVZUJP9932-36-03 05:42:00 Test Item Value Reference Range Interpretation Comments MCHC (test code = MCHC) 32.3 32.0-36.0 [facility] PointeKutxzrgZQXOYUVWKU4942-96-36 05:42:00 Test Item Value Reference Range Interpretation Comments RDW (test code = RDW) 17.3 11.5-14.5 [facility]FF[facility]PHSTAR[facility]24[facility] 05:42:00 Test Item Value Reference Range Interpretation Comments Platelet (test code = Platelet) 317 133-450 [facility]2018-05-08 05:42:00 Test Item Value Reference Range Interpretation Comments B/C Ratio (test code = B/C Ratio) 17 1 6-25 [facility]2018-05-08 05:42:00 Test Item Value Reference Range Interpretation Comments Globulin (test code = Globulin) 4.3 2.7-4.2 [facility]2018-05-08 05:42:00 Test Item Value Reference Range Interpretation Comments A/G Ratio (test code = A/G Ratio) 0.7 1 0.7-1.6 [place] 801258-05-08 05:42:00 Test Item Value Reference Range Interpretation Comments AGAP (test code = AGAP) 14.4 10.0-20.0 [facility]2018-05-08 05:42:00 Test Item Value Reference Range Interpretation Comments eGFR (test code = eGFR) 113 [facility]2018-05-08 05:42:00 Test Item Value Reference Range Interpretation Comments Alk Phos (test code = Alk Phos) 76 39-136 [facility]2018-05-08 05:42:00 Test Item Value Reference Range Interpretation Comments ALT (test code = ALT) 35 See_Comment [Auto mated message] The system which ge nerated this result transmit lester reference range : <=65. The reference range was not used to interpr et this result as dany l/abnormal. [facility]2018-05-08 05:42:00 Test Item Value Reference Range Interpretation Comments Albumin Lvl (test code = Albumin Lvl) 2.8 3.5-5.0 [facility]2018-05-08 05:42:00 Test Item Value Reference Range Interpretation Comments Total Protein (test code = Total 7.1 6.4-8.4 Protein) [facility]2018-05-08 05:42:00 Test Item Value Reference Range Interpretation Comments Calcium Lvl (test code = Calcium Lvl) 8.7 8.5-10.5 [facility]2018-05-08 05:42:00 Test Item Value Reference Range Interpretation Comments AST (test code = AST) 18 See_Comment [Auto mated message] The system which ge nerated this result transmit lester reference range : <=37. The reference range was not used to interpr et this result as dany l/abnormal. [facility]2018-05-08 05:42:00 Test Item Value Reference Range Interpretation Comments Bili Total (test code = Bili Total) 0.3 0.2-1.3 [facility]2018-05-08 05:42:00 Test Item Value Reference Range Interpretation Comments Potassium Lvl (test code = Potassium 4.4 3.5-5.1 Lvl) [facility]2018-05-08 05:42:00 Test Item Value Reference Range Interpretation Comments Chloride Lvl (test code = Chloride Lvl) 109 95-109 [facility]2018-05-08 05:42:00 Test Item Value Reference Range Interpretation Comments CO2 (test code = CO2) 23 24-32 [facility]2018-05-08 05:42:00 Test Item Value Reference Range Interpretation Comments Glucose Lvl (test code = Glucose Lvl) 114 70-99 [facility]2018-05-08 05:42:00 Test Item Value Reference Range Interpretation Comments Creatinine Lvl (test code = Creatinine 1.01 0.50-1.40 Lvl) [facility]2018-05-08 05:42:00 Test Item Value Reference Range Interpretation Comments BUN (test code = BUN) 17 7-22 [facility]2018-05-08 05:42:00 Test Item Value Reference Range Interpretation Comments Sodium Lvl (test code = Sodium Lvl) 142 135-145 [facility] PointeLniwyasKDXEMYQHGB0192-51-27 05:42:00 Test Item Value Reference Range Interpretation Comments Basophils (test code = 0.6 See_Comment [Aut omated message] The Basophils) system which ge nerated this result tra nsmitted reference range : <=1.0. The reference r boubacar was not used to int erpret this result as normal/abnormal . [facility] PointeTbptqziQTQGBUZGQT7851-09-32 05:42:00 Test Item Value Reference Range Interpretation Comments Segs-Bands # (test code = Segs-Bands #) 4.8 1.5-8.1 [facility] PointeIsipsakFGOTCXNRNB7774-33-89 05:42:00 Test Item Value Reference Range Interpretation Comments Monocytes # (test code 0.7 See_Comment [Aut omated message] The = Monocytes #) system which generated this result tra nsmitted reference range : <=0.8. The reference r boubacar was not used to int erpret this result as normal/abnormal . [facility] PointeGeukyvxPSUNUCJHTH9860-96-22 05:42:00 Test Item Value Reference Range Interpretation Comments Lymphocytes # (test code = Lymphocytes 1.9 1.0-5.5 #) [facility] PointeSdjnyohRYHFIDAHRK5681-26-91 05:42:00 Test Item Value Reference Range Interpretation Comments Monocytes (test code = Monocytes) 9.4 2.0-12.0 [facility] PointePqlsiwwBHBWRHEBFE3287-48-84 05:42:00 Test Item Value Reference Range Interpretation Comments Eosinophils # (test code 0.2 See_Comment [A utomated message] The = Eosinophils #) system whic h generated this result tra nsmitted reference range : <=0.5. The reference r boubacar was not used to int erpret this result as normal/abnormal . [facility] PointeNbahvuwWPRHKVXHQK2354-10-67 05:42:00 Test Item Value Reference Range Interpretation Comments Eosinophils (test code = 2.9 See_Comment [A utomated message] The Eosinophils) system which ge nerated this result tra nsmitted reference range : <=4.0. The reference r boubacar was not used to int erpret this result as normal/abnormal . [facility] PointeAldniavJVHMEXPXUA4327-79-57 05:42:00 Test Item Value Reference Range Interpretation Comments Segs (test code = Segs) 62.2 45.0-75.0 [facility] PointeKbxnwblHJHBBWYZZI4954-14-01 05:42:00 Test Item Value Reference Range Interpretation Comments Lymphocytes (test code = Lymphocytes) 24.9 20.0-40.0 [facility] PointeSpjlswhTERBTIJKEW9211-72-75 05:42:00 Test Item Value Reference Range Interpretation Comments MCH (test code = MCH) 27.5 pg 27.0-31.0 [facility] PointeOfrdewgOSQQABDAYX6855-20-37 05:42:00 Test Item Value Reference Range Interpretation Comments MCV (test code = MCV) 85.3 80.0-94.0 [facility] PointeTvncrqqAKJPIQBWMS5040-95-60 05:42:00 Test Item Value Reference Range Interpretation Comments Hct (test code = Hct) 43.9 42.0-54.0 [facility] PointeUydeagcWWMCNOXOCD5797-22-54 05:42:00 Test Item Value Reference Range Interpretation Comments Hgb (test code = Hgb) 14.2 14.0-18.0 [facility] PointeWaodaszENMMASIIZU2463-79-94 05:42:00 Test Item Value Reference Range Interpretation Comments WBC (test code = WBC) 7.7 3.7-10.4 [facility] PointeEyufvjqEXJBYOKSCA6781-76-86 05:42:00 Test Item Value Reference Range Interpretation Comments RBC (test code = RBC) 5.15 4.70-6.10 [facility] PointeJhxdvbfGENRAXAQRD5093-30-07 05:42:00 Test Item Value Reference Range Interpretation Comments MPV (test code = MPV) 8.4 7.4-10.4 [facility] PointeOdcgqtcABPCKWBUBQ6409-01-11 05:42:00 Test Item Value Reference Range Interpretation Comments MCHC (test code = MCHC) 32.3 32.0-36.0 [facility] PointeTzrumbgCZQYOKEMKU2374-74-14 05:42:00 Test Item Value Reference Range Interpretation Comments RDW (test code = RDW) 17.3 11.5-14.5 [facility] PointeLantdnkJRMYDQUCTO6562-81-47 05:42:00 Test Item Value Reference Range Interpretation Comments Platelet (test code = Platelet) 317 133-450 [facility]2018-05-08 05:42:00 Test Item Value Reference Range Interpretation Comments B/C Ratio (test code = B/C Ratio) 17 1 6-25 [facility]2018-05-08 05:42:00 Test Item Value Reference Range Interpretation Comments Globulin (test code = Globulin) 4.3 2.7-4.2 [facility]2018-05-08 05:42:00 Test Item Value Reference Range Interpretation Comments A/G Ratio (test code = A/G Ratio) 0.7 1 0.7-1.6 [facility]2018-05-08 05:42:00 Test Item Value Reference Range Interpretation Comments AGAP (test code = AGAP) 14.4 10.0-20.0 [facility]2018-05-08 05:42:00 Test Item Value Reference Range Interpretation Comments eGFR (test code = eGFR) 113 [facility]2018-05-08 05:42:00 Test Item Value Reference Range Interpretation Comments Alk Phos (test code = Alk Phos) 76 39-136 [facility]2018-05-08 05:42:00 Test Item Value Reference Range Interpretation Comments ALT (test code = ALT) 35 See_Comment [Auto mated message] The system which ge nerated this result transmit lester reference range : <=65. The reference range was not used to interpr et this result as dany l/abnormal. [facility]2018-05-08 05:42:00 Test Item Value Reference Range Interpretation Comments Albumin Lvl (test code = Albumin Lvl) 2.8 3.5-5.0 [facility]2018-05-08 05:42:00 Test Item Value Reference Range Interpretation Comments Total Protein (test code = Total 7.1 6.4-8.4 Protein) [facility]2018-05-08 05:42:00 Test Item Value Reference Range Interpretation Comments Calcium Lvl (test code = Calcium Lvl) 8.7 8.5-10.5 [facility]2018-05-08 05:42:00 Test Item Value Reference Range Interpretation Comments AST (test code = AST) 18 See_Comment [Auto mated message] The system which ge nerated this result transmit lester reference range : <=37. The reference range was not used to interpr et this result as dnay l/abnormal. [facility]2018-05-08 05:42:00 Test Item Value Reference Range Interpretation Comments Bili Total (test code = Bili Total) 0.3 0.2-1.3 [facility]2018-05-08 05:42:00 Test Item Value Reference Range Interpretation Comments Potassium Lvl (test code = Potassium 4.4 3.5-5.1 Lvl) [facility]2018-05-08 05:42:00 Test Item Value Reference Range Interpretation Comments Chloride Lvl (test code = Chloride Lvl) 109 95-109 [facility]2018-05-08 05:42:00 Test Item Value Reference Range Interpretation Comments CO2 (test code = CO2) 23 24-32 [facility]2018-05-08 05:42:00 Test Item Value Reference Range Interpretation Comments Glucose Lvl (test code = Glucose Lvl) 114 70-99 [facility]2018-05-08 05:42:00 Test Item Value Reference Range Interpretation Comments Creatinine Lvl (test code = Creatinine 1.01 0.50-1.40 Lvl) [facility]2018-05-08 05:42:00 Test Item Value Reference Range Interpretation Comments BUN (test code = BUN) 17 7-22 [facility]2018-05-08 05:42:00 Test Item Value Reference Range Interpretation Comments Sodium Lvl (test code = Sodium Lvl) 142 135-145 [facility] PointeSdhkdurZDCATBRHTS8187-73-29 05:42:00 Test Item Value Reference Range Interpretation Comments Basophils (test code = 0.6 See_Comment [Aut omated message] The Basophils) system which ge nerated this result tra nsmitted reference range : <=1.0. The reference r boubacar was not used to int erpret this result as normal/abnormal . [facility] PointeEflqwqwMIOHUYJGVP4471-87-75 05:42:00 Test Item Value Reference Range Interpretation Comments Segs-Bands # (test code = Segs-Bands #) 4.8 1.5-8.1 [facility] PointeHiixdbsRSFPXVJOHW1986-46-53 05:42:00 Test Item Value Reference Range Interpretation Comments Monocytes # (test code 0.7 See_Comment [Aut omated message] The = Monocytes #) system which generated this result tra nsmitted reference range : <=0.8. The reference r boubacar was not used to int erpret this result as normal/abnormal . [facility] PointeEwcpymvARNCRVWLGF6351-81-18 05:42:00 Test Item Value Reference Range Interpretation Comments Lymphocytes # (test code = Lymphocytes 1.9 1.0-5.5 #) [facility] PointeUjmmmztMBQQKMVWVE4014-53-82 05:42:00 Test Item Value Reference Range Interpretation Comments Monocytes (test code = Monocytes) 9.4 2.0-12.0 [facility] PointeXkcyuqlMWBXLXFLPA2119-79-17 05:42:00 Test Item Value Reference Range Interpretation Comments Eosinophils # (test code 0.2 See_Comment [A utomated message] The = Eosinophils #) system whic h generated this result tra nsmitted reference range : <=0.5. The reference r boubacar was not used to int erpret this result as normal/abnormal . [facility] PointeHlgivxuCBOZZAOHMB4257-17-81 05:42:00 Test Item Value Reference Range Interpretation Comments Eosinophils (test code = 2.9 See_Comment [A utomated message] The Eosinophils) system which ge nerated this result tra nsmitted reference range : <=4.0. The reference r boubacar was not used to int erpret this result as normal/abnormal . [facility] PointeCqxcqqtEGFTNWAYQH8501-94-55 05:42:00 Test Item Value Reference Range Interpretation Comments Segs (test code = Segs) 62.2 45.0-75.0 [facility] PointeLrgpnsyAOIYEJGPDU2744-88-41 05:42:00 Test Item Value Reference Range Interpretation Comments Lymphocytes (test code = Lymphocytes) 24.9 20.0-40.0 [facility] PointeOlqdgotROCWWXRNSQ6699-68-93 05:42:00 Test Item Value Reference Range Interpretation Comments MCH (test code = MCH) 27.5 pg 27.0-31.0 [facility] PointeSagdhryJKKZLLIJKH0651-91-70 05:42:00 Test Item Value Reference Range Interpretation Comments MCV (test code = MCV) 85.3 80.0-94.0 [facility] PointeRzlffccMHKLEZPNGJ0552-37-28 05:42:00 Test Item Value Reference Range Interpretation Comments Hct (test code = Hct) 43.9 42.0-54.0 [facility] PointeIkdlxheWTITVYJHUW6576-67-11 05:42:00 Test Item Value Reference Range Interpretation Comments Hgb (test code = Hgb) 14.2 14.0-18.0 [facility] PointeGegxwprYZBLSCZONR7058-56-03 05:42:00 Test Item Value Reference Range Interpretation Comments WBC (test code = WBC) 7.7 3.7-10.4 [facility] PointeRbydpgzEHBWTKPVMX0032-62-17 05:42:00 Test Item Value Reference Range Interpretation Comments RBC (test code = RBC) 5.15 4.70-6.10 [facility] PointeJleqkaqSOFOCXOPQX7677-66-07 05:42:00 Test Item Value Reference Range Interpretation Comments MPV (test code = MPV) 8.4 7.4-10.4 [facility] PointeSiedzvtBUODFDMEEW8322-71-23 05:42:00 Test Item Value Reference Range Interpretation Comments MCHC (test code = MCHC) 32.3 32.0-36.0 [facility] PointeTdadjqlAJDTMPOQWH7663-46-09 05:42:00 Test Item Value Reference Range Interpretation Comments RDW (test code = RDW) 17.3 11.5-14.5 [facility] PointePpnavqdZHFOVVNSYF0616-31-75 05:42:00 Test Item Value Reference Range Interpretation Comments Platelet (test code = Platelet) 317 133-450 [facility]2018-05-08 05:42:00 Test Item Value Reference Range Interpretation Comments B/C Ratio (test code = B/C Ratio) 17 1 6-25 [facility]2018-05-08 05:42:00 Test Item Value Reference Range Interpretation Comments Globulin (test code = Globulin) 4.3 2.7-4.2 [facility]2018-05-08 05:42:00 Test Item Value Reference Range Interpretation Comments A/G Ratio (test code = A/G Ratio) 0.7 1 0.7-1.6 [facility]2018-05-08 05:42:00 Test Item Value Reference Range Interpretation Comments AGAP (test code = AGAP) 14.4 10.0-20.0 [facility]2018-05-08 05:42:00 Test Item Value Reference Range Interpretation Comments eGFR (test code = eGFR) 113 [facility]2018-05-08 05:42:00 Test Item Value Reference Range Interpretation Comments Alk Phos (test code = Alk Phos) 76 39-136 [facility]2018-05-08 05:42:00 Test Item Value Reference Range Interpretation Comments ALT (test code = ALT) 35 See_Comment [Auto mated message] The system which ge nerated this result transmit lester reference range : <=65. The reference range was not used to interpr et this result as dany l/abnormal. [facility]2018-05-08 05:42:00 Test Item Value Reference Range Interpretation Comments Albumin Lvl (test code = Albumin Lvl) 2.8 3.5-5.0 [facility]2018-05-08 05:42:00 Test Item Value Reference Range Interpretation Comments Total Protein (test code = Total 7.1 6.4-8.4 Protein) [facility]2018-05-08 05:42:00 Test Item Value Reference Range Interpretation Comments Calcium Lvl (test code = Calcium Lvl) 8.7 8.5-10.5 [facility]2018-05-08 05:42:00 Test Item Value Reference Range Interpretation Comments AST (test code = AST) 18 See_Comment [Auto mated message] The system which ge nerated this result transmit lester reference range : <=37. The reference range was not used to interpr et this result as dany l/abnormal. [facility]2018-05-08 05:42:00 Test Item Value Reference Range Interpretation Comments Bili Total (test code = Bili Total) 0.3 0.2-1.3 [facility]2018-05-08 05:42:00 Test Item Value Reference Range Interpretation Comments Potassium Lvl (test code = Potassium 4.4 3.5-5.1 Lvl) [facility]2018-05-08 05:42:00 Test Item Value Reference Range Interpretation Comments Chloride Lvl (test code = Chloride Lvl) 109 95-109 [facility]2018-05-08 05:42:00 Test Item Value Reference Range Interpretation Comments CO2 (test code = CO2) 23 24-32 [facility]2018-05-08 05:42:00 Test Item Value Reference Range Interpretation Comments Glucose Lvl (test code = Glucose Lvl) 114 70-99 [facility]2018-05-08 05:42:00 Test Item Value Reference Range Interpretation Comments Creatinine Lvl (test code = Creatinine 1.01 0.50-1.40 Lvl) [facility]2018-05-08 05:42:00 Test Item Value Reference Range Interpretation Comments BUN (test code = BUN) 17 7-22 [facility]2018-05-08 05:42:00 Test Item Value Reference Range Interpretation Comments Sodium Lvl (test code = Sodium Lvl) 142 135-145 [facility]TxooxzlTDUGHEVXYC3423-99-80 05:42:00 Test Item Value Reference Range Interpretation Comments Basophils (test code = 0.6 See_Comment [Aut omated message] The Basophils) system which ge nerated this result tra nsmitted reference range : <=1.0. The reference r boubacar was not used to int erpret this result as normal/abnormal . [facility]XognfjrBDODQWVIUG0320-26-07 05:42:00 Test Item Value Reference Range Interpretation Comments Segs-Bands # (test code = Segs-Bands #) 4.8 1.5-8.1 [facility]inteXafhufqTNEUEHVXLT9867-47-67 05:42:00 Test Item Value Reference Range Interpretation Comments Monocytes # (test code 0.7 See_Comment [Aut omated message] The = Monocytes #) system which generated this result tra nsmitted reference range : <=0.8. The reference r boubacar was not used to int erpret this result as normal/abnormal . [facility]inteIotlyfrPPBCDJCTAF2374-32-02 05:42:00 Test Item Value Reference Range Interpretation Comments Lymphocytes # (test code = Lymphocytes 1.9 1.0-5.5 #) [facility]inteYbxtrtpYJRRXQWLRP9283-56-16 05:42:00 Test Item Value Reference Range Interpretation Comments Monocytes (test code = Monocytes) 9.4 2.0-12.0 [facility] PointeUkkdrydCZYXPEORPT1994-83-63 05:42:00 Test Item Value Reference Range Interpretation Comments Eosinophils # (test code 0.2 See_Comment [A utomated message] The = Eosinophils #) system wh h generated this result tra nsmitted reference range : <=0.5. The reference r boubacar was not used to int erpret this result as normal/abnormal . [facility]inteYsvasmtLHNLCVBVNK5946-71-36 05:42:00 Test Item Value Reference Range Interpretation Comments Eosinophils (test code = 2.9 See_Comment [A utomated message] The Eosinophils) system which ge nerated this result tra nsmitted reference range : <=4.0. The reference r boubacar was not used to int erpret this result as normal/abnormal . [facility]inteFeeqknxJMYYCYIKWC1720-12-54 05:42:00 Test Item Value Reference Range Interpretation Comments Segs (test code = Segs) 62.2 45.0-75.0 [facility] PointeGhpguncIWORZVGSVT0283-09-48 05:42:00 Test Item Value Reference Range Interpretation Comments Lymphocytes (test code = Lymphocytes) 24.9 20.0-40.0 [facility] PointeJuxfxkmDLCHHRJCEY9294-72-93 05:42:00 Test Item Value Reference Range Interpretation Comments MCH (test code = MCH) 27.5 pg 27.0-31.0 [facility] PointeDbakracHQWSYXYUUW1462-19-75 05:42:00 Test Item Value Reference Range Interpretation Comments MCV (test code = MCV) 85.3 80.0-94.0 [facility] PointeMkoqbbmSYOXEMXFBH3450-05-34 05:42:00 Test Item Value Reference Range Interpretation Comments Hct (test code = Hct) 43.9 42.0-54.0 [facility] PointeCzcmtnqPQVSCJFXUH8192-34-12 05:42:00 Test Item Value Reference Range Interpretation Comments Hgb (test code = Hgb) 14.2 14.0-18.0 [facility]inteXnrquzlIDKWKNERMV3266-35-91 05:42:00 Test Item Value Reference Range Interpretation Comments WBC (test code = WBC) 7.7 3.7-10.4 [facility] PointeTjraafsVCHGSODXCC3484-03-89 05:42:00 Test Item Value Reference Range Interpretation Comments RBC (test code = RBC) 5.15 4.70-6.10 [facility] PointeWgrdkeoKCWNWEKRRL7189-39-25 05:42:00 Test Item Value Reference Range Interpretation Comments MPV (test code = MPV) 8.4 7.4-10.4 [facility]inteYedqlcmZWXQKWJVGK1663-62-22 05:42:00 Test Item Value Reference Range Interpretation Comments MCHC (test code = MCHC) 32.3 32.0-36.0 [facility] PointeHlcsveuYLJKJLNHHX8579-72-18 05:42:00 Test Item Value Reference Range Interpretation Comments RDW (test code = RDW) 17.3 11.5-14.5 [facility] PointeIotgeigFRLLDJAXNR4066-58-55 05:42:00 Test Item Value Reference Range Interpretation Comments Platelet (test code = Platelet) 317 133-450 [facility]2018-05-08 05:42:00 Test Item Value Reference Range Interpretation Comments B/C Ratio (test code = B/C Ratio) 17 1 6-25 [facility] VNWJL8652-75-31 05:42:00 Test Item Value Reference Range Interpretation Comments Globulin (test code = Globulin) 4.3 2.7-4.2 [facility] QVVLX5611-49-09 05:42:00 Test Item Value Reference Range Interpretation Comments A/G Ratio (test code = A/G Ratio) 0.7 1 0.7-1.6 [facility]2018-05-08 05:42:00 Test Item Value Reference Range Interpretation Comments AGAP (test code = AGAP) 14.4 10.0-20.0 [facility]2018-05-08 05:42:00 Test Item Value Reference Range Interpretation Comments eGFR (test code = eGFR) 113 [facility]2018-05-08 05:42:00 Test Item Value Reference Range Interpretation Comments Alk Phos (test code = Alk Phos) 76 39-136 [place] 801258-05-08 05:42:00 Test Item Value Reference Range Interpretation Comments ALT (test code = ALT) 35 See_Comment [Auto mated message] The system which ge nerated this result transmit lester reference range : <=65. The reference range was not used to interpr et this result as dany l/abnormal. [facility]2018-05-08 05:42:00 Test Item Value Reference Range Interpretation Comments Albumin Lvl (test code = Albumin Lvl) 2.8 3.5-5.0 [facility]2018-05-08 05:42:00 Test Item Value Reference Range Interpretation Comments Total Protein (test code = Total 7.1 6.4-8.4 Protein) [facility]2018-05-08 05:42:00 Test Item Value Reference Range Interpretation Comments Calcium Lvl (test code = Calcium Lvl) 8.7 8.5-10.5 [facility]2018-05-08 05:42:00 Test Item Value Reference Range Interpretation Comments AST (test code = AST) 18 See_Comment [Auto mated message] The system which ge nerated this result transmit lester reference range : <=37. The reference range was not used to interpr et this result as dany l/abnormal. [facility]2018-05-08 05:42:00 Test Item Value Reference Range Interpretation Comments Bili Total (test code = Bili Total) 0.3 0.2-1.3 [place] 801258-05-08 05:42:00 Test Item Value Reference Range Interpretation Comments Potassium Lvl (test code = Potassium 4.4 3.5-5.1 Lvl) [facility]2018-05-08 05:42:00 Test Item Value Reference Range Interpretation Comments Chloride Lvl (test code = Chloride Lvl) 109 95-109 [facility]2018-05-08 05:42:00 Test Item Value Reference Range Interpretation Comments CO2 (test code = CO2) 23 24-32 [place] 801258-05-08 05:42:00 Test Item Value Reference Range Interpretation Comments Glucose Lvl (test code = Glucose Lvl) 114 70-99 [facility]2018-05-08 05:42:00 Test Item Value Reference Range Interpretation Comments Creatinine Lvl (test code = Creatinine 1.01 0.50-1.40 Lvl) [facility]2018-05-08 05:42:00 Test Item Value Reference Range Interpretation Comments BUN (test code = BUN) 17 7-22 [facility]2018-05-08 05:42:00 Test Item Value Reference Range Interpretation Comments Sodium Lvl (test code = Sodium Lvl) 142 135-145 [facility]inteIcfpsvzYAIEGPYJFG7819-67-34 05:42:00 Test Item Value Reference Range Interpretation Comments Basophils (test code = 0.6 See_Comment [Aut omated message] The Basophils) system which ge nerated this result tra nsmitted reference range : <=1.0. The reference r boubacar was not used to int erpret this result as normal/abnormal . [facility]inteCwjsxuxTGWBISAFZD2385-36-94 05:42:00 Test Item Value Reference Range Interpretation Comments Segs-Bands # (test code = Segs-Bands #) 4.8 1.5-8.1 [facility]inteCxbdbacIXKJSOVCZV0811-53-39 05:42:00 Test Item Value Reference Range Interpretation Comments Monocytes # (test code 0.7 See_Comment [Aut omated message] The = Monocytes #) system which generated this result tra nsmitted reference range : <=0.8. The reference r boubacar was not used to int erpret this result as normal/abnormal . [facility]inteMsgvqazXOCQNOXACV4051-04-59 05:42:00 Test Item Value Reference Range Interpretation Comments Lymphocytes # (test code = Lymphocytes 1.9 1.0-5.5 #) [facility] PointeMvwcjnvMNERESKSCS2115-27-97 05:42:00 Test Item Value Reference Range Interpretation Comments Monocytes (test code = Monocytes) 9.4 2.0-12.0 [facility] PointeKhivlsmZRFFKQYLAG9196-73-97 05:42:00 Test Item Value Reference Range Interpretation Comments Eosinophils # (test code 0.2 See_Comment [A utomated message] The = Eosinophils #) system whic h generated this result tra nsmitted reference range : <=0.5. The reference r boubacar was not used to int erpret this result as normal/abnormal . [facility]inteRotwxlhZEHKUINXDV4679-93-95 05:42:00 Test Item Value Reference Range Interpretation Comments Eosinophils (test code = 2.9 See_Comment [A utomated message] The Eosinophils) system which ge nerated this result tra nsmitted reference range : <=4.0. The reference r boubacar was not used to int erpret this result as normal/abnormal . [facility]inteQfjerxfGDJFWBHFZQ1975-51-05 05:42:00 Test Item Value Reference Range Interpretation Comments Segs (test code = Segs) 62.2 45.0-75.0 [facility] PointePydcsfuOJERSHWEBM3522-32-35 05:42:00 Test Item Value Reference Range Interpretation Comments Lymphocytes (test code = Lymphocytes) 24.9 20.0-40.0 [facility] PointeUfyvvewDOUUMRHSKD1943-33-46 05:42:00 Test Item Value Reference Range Interpretation Comments MCH (test code = MCH) 27.5 pg 27.0-31.0 [facility] PointeGjcdtgwYTMEZZJUML7442-29-90 05:42:00 Test Item Value Reference Range Interpretation Comments MCV (test code = MCV) 85.3 80.0-94.0 [facility]inteQiehdfqPRSONKJXTV6747-92-07 05:42:00 Test Item Value Reference Range Interpretation Comments Hct (test code = Hct) 43.9 42.0-54.0 [facility] PointeRwmurgwAMCQSBCBDE3237-25-00 05:42:00 Test Item Value Reference Range Interpretation Comments Hgb (test code = Hgb) 14.2 14.0-18.0 [facility] PointeRjbothwMUBTHMVGIS6535-12-44 05:42:00 Test Item Value Reference Range Interpretation Comments WBC (test code = WBC) 7.7 3.7-10.4 [facility] PointeVhmyqhjEOTNXBEUYI4584-96-78 05:42:00 Test Item Value Reference Range Interpretation Comments RBC (test code = RBC) 5.15 4.70-6.10 [facility] PointeMnxqxjbOLHNBQYYTG4035-57-73 05:42:00 Test Item Value Reference Range Interpretation Comments MPV (test code = MPV) 8.4 7.4-10.4 [facility] PointeEfzzeasYPEXDXCSTW3058-71-70 05:42:00 Test Item Value Reference Range Interpretation Comments MCHC (test code = MCHC) 32.3 32.0-36.0 [facility] PointeJxnohwcIVMQGXLPKN7971-62-16 05:42:00 Test Item Value Reference Range Interpretation Comments RDW (test code = RDW) 17.3 11.5-14.5 [facility] PointeJejukldEXMDYOVNDC9125-00-08 05:42:00 Test Item Value Reference Range Interpretation Comments Platelet (test code = Platelet) 317 133-450 [facility]2018-05-08 05:42:00 Test Item Value Reference Range Interpretation Comments B/C Ratio (test code = B/C Ratio) 17 1 6-25 [facility]2018-05-08 05:42:00 Test Item Value Reference Range Interpretation Comments Globulin (test code = Globulin) 4.3 2.7-4.2 [facility]2018-05-08 05:42:00 Test Item Value Reference Range Interpretation Comments A/G Ratio (test code = A/G Ratio) 0.7 1 0.7-1.6 [facility]2018-05-08 05:42:00 Test Item Value Reference Range Interpretation Comments AGAP (test code = AGAP) 14.4 10.0-20.0 [facility]2018-05-08 05:42:00 Test Item Value Reference Range Interpretation Comments eGFR (test code = eGFR) 113 [facility]2018-05-08 05:42:00 Test Item Value Reference Range Interpretation Comments Alk Phos (test code = Alk Phos) 76 39-136 [facility]2018-05-08 05:42:00 Test Item Value Reference Range Interpretation Comments ALT (test code = ALT) 35 See_Comment [Auto mated message] The system which ge nerated this result transmit lester reference range : <=65. The reference range was not used to interpr et this result as dany l/abnormal. [facility]2018-05-08 05:42:00 Test Item Value Reference Range Interpretation Comments Albumin Lvl (test code = Albumin Lvl) 2.8 3.5-5.0 [facility]2018-05-08 05:42:00 Test Item Value Reference Range Interpretation Comments Total Protein (test code = Total 7.1 6.4-8.4 Protein) [facility]2018-05-08 05:42:00 Test Item Value Reference Range Interpretation Comments Calcium Lvl (test code = Calcium Lvl) 8.7 8.5-10.5 [facility]2018-05-08 05:42:00 Test Item Value Reference Range Interpretation Comments AST (test code = AST) 18 See_Comment [Auto mated message] The system which ge nerated this result transmit lester reference range : <=37. The reference range was not used to interpr et this result as dany l/abnormal. [facility]2018-05-08 05:42:00 Test Item Value Reference Range Interpretation Comments Bili Total (test code = Bili Total) 0.3 0.2-1.3 [facility]2018-05-08 05:42:00 Test Item Value Reference Range Interpretation Comments Potassium Lvl (test code = Potassium 4.4 3.5-5.1 Lvl) [facility]2018-05-08 05:42:00 Test Item Value Reference Range Interpretation Comments Chloride Lvl (test code = Chloride Lvl) 109 95-109 [facility]2018-05-08 05:42:00 Test Item Value Reference Range Interpretation Comments CO2 (test code = CO2) 23 24-32 [facility]2018-05-08 05:42:00 Test Item Value Reference Range Interpretation Comments Glucose Lvl (test code = Glucose Lvl) 114 70-99 [facility]2018-05-08 05:42:00 Test Item Value Reference Range Interpretation Comments Creatinine Lvl (test code = Creatinine 1.01 0.50-1.40 Lvl) [facility]2018-05-08 05:42:00 Test Item Value Reference Range Interpretation Comments BUN (test code = BUN) 17 7-22 [facility]2018-05-08 05:42:00 Test Item Value Reference Range Interpretation Comments Sodium Lvl (test code = Sodium Lvl) 142 135-145 [facility]inteOsnilnvRPETMQIOVO0435-47-39 05:42:00 Test Item Value Reference Range Interpretation Comments Basophils (test code = 0.6 See_Comment [Aut omated message] The Basophils) system which ge nerated this result tra nsmitted reference range : <=1.0. The reference r boubacar was not used to int erpret this result as normal/abnormal . [facility] PointeWkbiwrjBFHOMIHOPP8469-04-34 05:42:00 Test Item Value Reference Range Interpretation Comments Segs-Bands # (test code = Segs-Bands #) 4.8 1.5-8.1 [facility] PointeTelamgoEFNUDNEALF8939-21-00 05:42:00 Test Item Value Reference Range Interpretation Comments Monocytes # (test code 0.7 See_Comment [Aut omated message] The = Monocytes #) system which generated this result tra nsmitted reference range : <=0.8. The reference r boubacar was not used to int erpret this result as normal/abnormal . [facility] PointeDzubhooVYWKJGCEHZ9746-28-82 05:42:00 Test Item Value Reference Range Interpretation Comments Lymphocytes # (test code = Lymphocytes 1.9 1.0-5.5 #) [facility] PointeItidukjDPVRLZPSQC0788-85-90 05:42:00 Test Item Value Reference Range Interpretation Comments Monocytes (test code = Monocytes) 9.4 2.0-12.0 [facility] PointeXesybhsBMUHOPUIBW7783-75-30 05:42:00 Test Item Value Reference Range Interpretation Comments Eosinophils # (test code 0.2 See_Comment [A utomated message] The = Eosinophils #) system whic h generated this result tra nsmitted reference range : <=0.5. The reference r boubacar was not used to int erpret this result as normal/abnormal . [facility] PointeGlnsbpnTFSHVPGIBW8676-12-37 05:42:00 Test Item Value Reference Range Interpretation Comments Eosinophils (test code = 2.9 See_Comment [A utomated message] The Eosinophils) system which ge nerated this result tra nsmitted reference range : <=4.0. The reference r boubacar was not used to int erpret this result as normal/abnormal . [facility] PointeCmkbqmsTIDDUUECVT7122-87-86 05:42:00 Test Item Value Reference Range Interpretation Comments Segs (test code = Segs) 62.2 45.0-75.0 [facility] PointeYwlhdshBZNQJSCPWN1274-91-51 05:42:00 Test Item Value Reference Range Interpretation Comments Lymphocytes (test code = Lymphocytes) 24.9 20.0-40.0 [facility] PointeZwchoirFZGXJBWIHH1740-20-86 05:42:00 Test Item Value Reference Range Interpretation Comments MCH (test code = MCH) 27.5 pg 27.0-31.0 [facility] PointeOnbbfgtJFRCJMEUJR7178-50-07 05:42:00 Test Item Value Reference Range Interpretation Comments MCV (test code = MCV) 85.3 80.0-94.0 [facility] PointeYvetikvYAPJJWTDPI8785-45-59 05:42:00 Test Item Value Reference Range Interpretation Comments Hct (test code = Hct) 43.9 42.0-54.0 [facility] PointeTrogooyBNQWERQWQA0644-27-56 05:42:00 Test Item Value Reference Range Interpretation Comments Hgb (test code = Hgb) 14.2 14.0-18.0 [facility] PointeLymvlamVMLCNHMZQP1256-28-77 05:42:00 Test Item Value Reference Range Interpretation Comments WBC (test code = WBC) 7.7 3.7-10.4 [facility] PointeRueimgpOZGZXKLTFI6241-53-71 05:42:00 Test Item Value Reference Range Interpretation Comments RBC (test code = RBC) 5.15 4.70-6.10 [facility] PointeMiupmpdIKCEWGMQGO2003-74-01 05:42:00 Test Item Value Reference Range Interpretation Comments MPV (test code = MPV) 8.4 7.4-10.4 [facility] PointeSccrfrdXXKZDKLYFY3504-75-16 05:42:00 Test Item Value Reference Range Interpretation Comments MCHC (test code = MCHC) 32.3 32.0-36.0 [facility] PointeWkldmpjQASICNMELN5214-35-60 05:42:00 Test Item Value Reference Range Interpretation Comments RDW (test code = RDW) 17.3 11.5-14.5 [facility] PointeTtyfvrxZTEJAEQRER1227-55-73 05:42:00 Test Item Value Reference Range Interpretation Comments Platelet (test code = Platelet) 317 423-450 [facility] GTRLP5254-85-86 05:42:00 Test Item Value Reference Range Interpretation Comments B/C Ratio (test code = B/C Ratio) 17 1 6-25 [facility] AKSXX2278-73-16 05:42:00 Test Item Value Reference Range Interpretation Comments Globulin (test code = Globulin) 4.3 2.7-4.2 [facility]2018-05-08 05:42:00 Test Item Value Reference Range Interpretation Comments A/G Ratio (test code = A/G Ratio) 0.7 1 0.7-1.6 [facility]2018-05-08 05:42:00 Test Item Value Reference Range Interpretation Comments AGAP (test code = AGAP) 14.4 10.0-20.0 [facility]2018-05-08 05:42:00 Test Item Value Reference Range Interpretation Comments eGFR (test code = eGFR) 113 [facility]2018-05-08 05:42:00 Test Item Value Reference Range Interpretation Comments Alk Phos (test code = Alk Phos) 76 39-136 [facility]2018-05-08 05:42:00 Test Item Value Reference Range Interpretation Comments ALT (test code = ALT) 35 See_Comment [Auto mated message] The system which ge nerated this result transmit lester reference range : <=65. The reference range was not used to interpr et this result as dany l/abnormal. [facility]2018-05-08 05:42:00 Test Item Value Reference Range Interpretation Comments Albumin Lvl (test code = Albumin Lvl) 2.8 3.5-5.0 [facility]2018-05-08 05:42:00 Test Item Value Reference Range Interpretation Comments Total Protein (test code = Total 7.1 6.4-8.4 Protein) [facility]2018-05-08 05:42:00 Test Item Value Reference Range Interpretation Comments Calcium Lvl (test code = Calcium Lvl) 8.7 8.5-10.5 [facility]2018-05-08 05:42:00 Test Item Value Reference Range Interpretation Comments AST (test code = AST) 18 See_Comment [Auto mated message] The system which ge nerated this result transmit lester reference range : <=37. The reference range was not used to interpr et this result as dany l/abnormal. [facility]2018-05-08 05:42:00 Test Item Value Reference Range Interpretation Comments Bili Total (test code = Bili Total) 0.3 0.2-1.3 [facility]2018-05-08 05:42:00 Test Item Value Reference Range Interpretation Comments Potassium Lvl (test code = Potassium 4.4 3.5-5.1 Lvl) [facility]2018-05-08 05:42:00 Test Item Value Reference Range Interpretation Comments Chloride Lvl (test code = Chloride Lvl) 109 95-109 [facility]2018-05-08 05:42:00 Test Item Value Reference Range Interpretation Comments CO2 (test code = CO2) 23 24-32 [facility]2018-05-08 05:42:00 Test Item Value Reference Range Interpretation Comments Glucose Lvl (test code = Glucose Lvl) 114 70-99 [facility]2018-05-08 05:42:00 Test Item Value Reference Range Interpretation Comments Creatinine Lvl (test code = Creatinine 1.01 0.50-1.40 Lvl) [facility]2018-05-08 05:42:00 Test Item Value Reference Range Interpretation Comments BUN (test code = BUN) 17 7-22 [facility]2018-05-08 05:42:00 Test Item Value Reference Range Interpretation Comments Sodium Lvl (test code = Sodium Lvl) 142 135-145 [facility]BofudmuZMXDOJQYRO4721-33-13 05:42:00 Test Item Value Reference Range Interpretation Comments Basophils (test code = 0.6 See_Comment [Aut omated message] The Basophils) system which ge nerated this result tra nsmitted reference range : <=1.0. The reference r boubacar was not used to int erpret this result as normal/abnormal . [facility]intePwvclvpRTFIIYDDSQ1242-18-96 05:42:00 Test Item Value Reference Range Interpretation Comments Segs-Bands # (test code = Segs-Bands #) 4.8 1.5-8.1 [facility]inteGkcjgiiHAZGWWJFUC9267-20-59 05:42:00 Test Item Value Reference Range Interpretation Comments Monocytes # (test code 0.7 See_Comment [Aut omated message] The = Monocytes #) system which generated this result tra nsmitted reference range : <=0.8. The reference r boubacar was not used to int erpret this result as normal/abnormal . [facility]inteHrchvmqVPHHIISNAV9963-42-73 05:42:00 Test Item Value Reference Range Interpretation Comments Lymphocytes # (test code = Lymphocytes 1.9 1.0-5.5 #) [facility]inteXxewxiyIDFYWGEJNB7376-11-25 05:42:00 Test Item Value Reference Range Interpretation Comments Monocytes (test code = Monocytes) 9.4 2.0-12.0 [facility] PointeWppkfajFBDINXTNKR5261-87-30 05:42:00 Test Item Value Reference Range Interpretation Comments Eosinophils # (test code 0.2 See_Comment [A utomated message] The = Eosinophils #) system whic h generated this result tra nsmitted reference range : <=0.5. The reference r boubacar was not used to int erpret this result as normal/abnormal . [facility]inteFtpmxmqHGUPUTNMPS4728-17-11 05:42:00 Test Item Value Reference Range Interpretation Comments Eosinophils (test code = 2.9 See_Comment [A utomated message] The Eosinophils) system which ge nerated this result tra nsmitted reference range : <=4.0. The reference r boubacar was not used to int erpret this result as normal/abnormal . [facility]inteHzxjifqYNJYXLMKAV3380-49-26 05:42:00 Test Item Value Reference Range Interpretation Comments Segs (test code = Segs) 62.2 45.0-75.0 [facility]inteJxgxczdLCKJUMBDAC1577-08-72 05:42:00 Test Item Value Reference Range Interpretation Comments Lymphocytes (test code = Lymphocytes) 24.9 20.0-40.0 [facility] PointeZxbkjewUQUMRLFBMA5446-67-45 05:42:00 Test Item Value Reference Range Interpretation Comments MCH (test code = MCH) 27.5 pg 27.0-31.0 [facility] PointeIsarbcbPWRCMMYQHB6692-34-81 05:42:00 Test Item Value Reference Range Interpretation Comments MCV (test code = MCV) 85.3 80.0-94.0 [facility] PointeVoizyycRUXOPFLRAZ4997-85-18 05:42:00 Test Item Value Reference Range Interpretation Comments Hct (test code = Hct) 43.9 42.0-54.0 [facility] PointePnyryvhYNTKOCAYGD1831-25-78 05:42:00 Test Item Value Reference Range Interpretation Comments Hgb (test code = Hgb) 14.2 14.0-18.0 [facility] PointeXaujatcGQQPAECXCE1457-03-55 05:42:00 Test Item Value Reference Range Interpretation Comments WBC (test code = WBC) 7.7 3.7-10.4 [facility] PointeJjagualQHTGWQBFED4304-50-53 05:42:00 Test Item Value Reference Range Interpretation Comments RBC (test code = RBC) 5.15 4.70-6.10 [facility] PointeKpnamlmIAVOOFZMXJ2577-93-15 05:42:00 Test Item Value Reference Range Interpretation Comments MPV (test code = MPV) 8.4 7.4-10.4 [facility] PointeQfbupxoZJWEPMSTKN9608-62-56 05:42:00 Test Item Value Reference Range Interpretation Comments MCHC (test code = MCHC) 32.3 32.0-36.0 [facility] PointeNyuiorfQGQGQQQZVH2013-00-78 05:42:00 Test Item Value Reference Range Interpretation Comments RDW (test code = RDW) 17.3 11.5-14.5 [facility] PointeMpgxmadHTBTLGJLSU8201-85-09 05:42:00 Test Item Value Reference Range Interpretation Comments Platelet (test code = Platelet) 317 133-450 [facility]2018-05-07 09:36:00 Test Item Value Reference Range Interpretation Comments Globulin (test code = Globulin) 4.4 2.7-4.2 [facility]2018-05-07 09:36:00 Test Item Value Reference Range Interpretation Comments A/G Ratio (test code = A/G Ratio) 0.6 1 0.7-1.6 [facility]2018-05-07 09:36:00 Test Item Value Reference Range Interpretation Comments B/C Ratio (test code = B/C Ratio) 17 1 6-25 [facility]2018-05-07 09:36:00 Test Item Value Reference Range Interpretation Comments AGAP (test code = AGAP) 11.3 10.0-20.0 [facility]2018-05-07 09:36:00 Test Item Value Reference Range Interpretation Comments eGFR (test code = eGFR) 134 [facility]2018-05-07 09:36:00 Test Item Value Reference Range Interpretation Comments Creatinine Lvl (test code = Creatinine 0.84 0.50-1.40 Lvl) [facility]2018-05-07 09:36:00 Test Item Value Reference Range Interpretation Comments Sodium Lvl (test code = Sodium Lvl) 142 135-145 [place]258-05-07 09:36:00 Test Item Value Reference Range Interpretation Comments Glucose Lvl (test code = Glucose Lvl) 99 70-99 [facility]2018-05-07 09:36:00 Test Item Value Reference Range Interpretation Comments BUN (test code = BUN) 14 7-22 [place] 801258-05-07 09:36:00 Test Item Value Reference Range Interpretation Comments Alk Phos (test code = Alk Phos) 79 39-136 [place] 801258-05-07 09:36:00 Test Item Value Reference Range Interpretation Comments Bili Total (test code = Bili Total) 0.3 0.2-1.3 [place] [address]258-05-07 09:36:00 Test Item Value Reference Range Interpretation Comments AST (test code = AST) 14 See_Comment [Auto mated message] The system which ge nerated this result transmit lester reference range : <=37. The reference range was not used to interpr et this result as dany l/abnormal. [place] 801258-05-07 09:36:00 Test Item Value Reference Range Interpretation Comments ALT (test code = ALT) 43 See_Comment [Auto mated message] The system which ge nerated this result transmit lester reference range : <=65. The reference range was not used to interpr et this result as dany l/abnormal. [facility]2018-05-07 09:36:00 Test Item Value Reference Range Interpretation Comments Total Protein (test code = Total 7.1 6.4-8.4 Protein) [facility]2018-05-07 09:36:00 Test Item Value Reference Range Interpretation Comments Albumin Lvl (test code = Albumin Lvl) 2.7 3.5-5.0 [place] [address]258-05-07 09:36:00 Test Item Value Reference Range Interpretation Comments Calcium Lvl (test code = Calcium Lvl) 9.2 8.5-10.5 [facility]2018-05-07 09:36:00 Test Item Value Reference Range Interpretation Comments CO2 (test code = CO2) 21 24-32 [place] 801258-05-07 09:36:00 Test Item Value Reference Range Interpretation Comments Potassium Lvl (test code = Potassium 4.3 3.5-5.1 Lvl) [facility]2018-05-07 09:36:00 Test Item Value Reference Range Interpretation Comments Chloride Lvl (test code = Chloride Lvl) 114 95-109 [facility]inteNpwslbvYOLCQSIXVC8520-19-52 09:36:00 Test Item Value Reference Range Interpretation Comments MCHC (test code = MCHC) 32.5 32.0-36.0 [facility] PointeTbeyswvSMOYTHDUTJ6006-34-60 09:36:00 Test Item Value Reference Range Interpretation Comments RDW (test code = RDW) 17.5 11.5-14.5 [facility]inteFhobzphQCADDLIESM6929-58-13 09:36:00 Test Item Value Reference Range Interpretation Comments Platelet (test code = Platelet) 400 133-450 [facility] PointeVfctoukGAOKSRALBG9974-91-13 09:36:00 Test Item Value Reference Range Interpretation Comments MPV (test code = MPV) 8.5 7.4-10.4 [facility] PointeWgnldikGQHHHHRZPZ7262-27-04 09:36:00 Test Item Value Reference Range Interpretation Comments WBC (test code = WBC) 6.6 3.7-10.4 [facility] PointeRamdplzRWJKJJNRDK0671-24-90 09:36:00 Test Item Value Reference Range Interpretation Comments RBC (test code = RBC) 5.17 4.70-6.10 [facility] PointeMksogxkMFHOMBKBZD5360-19-56 09:36:00 Test Item Value Reference Range Interpretation Comments MCV (test code = MCV) 86.1 80.0-94.0 [facility] PointeVyptymuEBEKLTVGHR6134-43-10 09:36:00 Test Item Value Reference Range Interpretation Comments Hct (test code = Hct) 44.5 42.0-54.0 [facility] PointeJdtywomTNMSISDVCB9271-77-43 09:36:00 Test Item Value Reference Range Interpretation Comments MCH (test code = MCH) 28.0 pg 27.0-31.0 [facility] PointeKyommjpOAYWSGBSDA5874-36-69 09:36:00 Test Item Value Reference Range Interpretation Comments Hgb (test code = Hgb) 14.5 14.0-18.0 [facility] PointeYjrghhbLEDJCENXTE3964-23-17 09:36:00 Test Item Value Reference Range Interpretation Comments Lymphocytes # (test code = Lymphocytes 1.7 1.0-5.5 #) [facility] PointeMxzoctiLQEOOIOTKY5406-34-05 09:36:00 Test Item Value Reference Range Interpretation Comments Monocytes # (test code 0.7 See_Comment [Aut omated message] The = Monocytes #) system which generated this result tra nsmitted reference range : <=0.8. The reference r boubacar was not used to int erpret this result as normal/abnormal . [facility]inteQhzzvkyWGEJLJYCXK3975-08-75 09:36:00 Test Item Value Reference Range Interpretation Comments Eosinophils # (test code 0.2 See_Comment [A utomated message] The = Eosinophils #) system whic h generated this result tra nsmitted reference range : <=0.5. The reference r boubacar was not used to int erpret this result as normal/abnormal . [facility] PointeHugrniuFGAFWPODBC4561-16-64 09:36:00 Test Item Value Reference Range Interpretation Comments Lymphocytes (test code = Lymphocytes) 26.1 20.0-40.0 [facility] PointeDbgvrisCBSDEHODRA7631-94-77 09:36:00 Test Item Value Reference Range Interpretation Comments Segs (test code = Segs) 59.3 45.0-75.0 [facility] PointeRkkqvawUXEVLAFCUX2745-33-20 09:36:00 Test Item Value Reference Range Interpretation Comments Basophils (test code = 0.8 See_Comment [Aut omated message] The Basophils) system which ge nerated this result tra nsmitted reference range : <=1.0. The reference r boubacar was not used to int erpret this result as normal/abnormal . [facility] PointeZxndcbtRWVVIKWIRT1595-41-16 09:36:00 Test Item Value Reference Range Interpretation Comments Monocytes (test code = Monocytes) 10.5 2.0-12.0 [facility] PointeDxgbinmRHJQGJPGHZ1123-61-44 09:36:00 Test Item Value Reference Range Interpretation Comments Eosinophils (test code = 3.3 See_Comment [A utomated message] The Eosinophils) system which ge nerated this result tra nsmitted reference range : <=4.0. The reference r boubacar was not used to int erpret this result as normal/abnormal . [facility] PointeTuasgllXFIXOAVXYN2007-14-41 09:36:00 Test Item Value Reference Range Interpretation Comments Segs-Bands # (test code = Segs-Bands #) 3.9 1.5-8.1 [facility]2018-05-07 09:36:00 Test Item Value Reference Range Interpretation Comments Globulin (test code = Globulin) 4.4 2.7-4.2 [facility]2018-05-07 09:36:00 Test Item Value Reference Range Interpretation Comments A/G Ratio (test code = A/G Ratio) 0.6 1 0.7-1.6 [facility]2018-05-07 09:36:00 Test Item Value Reference Range Interpretation Comments B/C Ratio (test code = B/C Ratio) 17 1 6-25 [place] [address]258-05-07 09:36:00 Test Item Value Reference Range Interpretation Comments AGAP (test code = AGAP) 11.3 10.0-20.0 [facility]2018-05-07 09:36:00 Test Item Value Reference Range Interpretation Comments eGFR (test code = eGFR) 134 [facility]2018-05-07 09:36:00 Test Item Value Reference Range Interpretation Comments Creatinine Lvl (test code = Creatinine 0.84 0.50-1.40 Lvl) [facility]2018-05-07 09:36:00 Test Item Value Reference Range Interpretation Comments Sodium Lvl (test code = Sodium Lvl) 142 135-145 [facility]2018-05-07 09:36:00 Test Item Value Reference Range Interpretation Comments Glucose Lvl (test code = Glucose Lvl) 99 70-99 [facility]2018-05-07 09:36:00 Test Item Value Reference Range Interpretation Comments BUN (test code = BUN) 14 7-22 [facility]2018-05-07 09:36:00 Test Item Value Reference Range Interpretation Comments Alk Phos (test code = Alk Phos) 79 39-136 [place] [address]258-05-07 09:36:00 Test Item Value Reference Range Interpretation Comments Bili Total (test code = Bili Total) 0.3 0.2-1.3 [place] [address]258-05-07 09:36:00 Test Item Value Reference Range Interpretation Comments AST (test code = AST) 14 See_Comment [Auto mated message] The system which ge nerated this result transmit lester reference range : <=37. The reference range was not used to interpr et this result as dany l/abnormal. [facility]2018-05-07 09:36:00 Test Item Value Reference Range Interpretation Comments ALT (test code = ALT) 43 See_Comment [Auto mated message] The system which ge nerated this result transmit lester reference range : <=65. The reference range was not used to interpr et this result as dany l/abnormal. [facility]2018-05-07 09:36:00 Test Item Value Reference Range Interpretation Comments Total Protein (test code = Total 7.1 6.4-8.4 Protein) [facility]2018-05-07 09:36:00 Test Item Value Reference Range Interpretation Comments Albumin Lvl (test code = Albumin Lvl) 2.7 3.5-5.0 [place] [address]258-05-07 09:36:00 Test Item Value Reference Range Interpretation Comments Calcium Lvl (test code = Calcium Lvl) 9.2 8.5-10.5 [facility]2018-05-07 09:36:00 Test Item Value Reference Range Interpretation Comments CO2 (test code = CO2) 21 24-32 [facility]2018-05-07 09:36:00 Test Item Value Reference Range Interpretation Comments Potassium Lvl (test code = Potassium 4.3 3.5-5.1 Lvl) [facility]2018-05-07 09:36:00 Test Item Value Reference Range Interpretation Comments Chloride Lvl (test code = Chloride Lvl) 114 95-109 [facility]inteFywjlrmQCNKQCLZXP0972-08-20 09:36:00 Test Item Value Reference Range Interpretation Comments MCHC (test code = MCHC) 32.5 32.0-36.0 [facility] PointeXzqkifzAXJVKBUGKH9762-86-67 09:36:00 Test Item Value Reference Range Interpretation Comments RDW (test code = RDW) 17.5 11.5-14.5 [facility] PointeTieptdqTDPGIOBMJW5186-81-90 09:36:00 Test Item Value Reference Range Interpretation Comments Platelet (test code = Platelet) 400 133-450 [facility] PointeOqdhaszRTIXMBTRVJ1327-50-91 09:36:00 Test Item Value Reference Range Interpretation Comments MPV (test code = MPV) 8.5 7.4-10.4 [facility] PointeZncswdqLZTGMPBBJY3362-06-02 09:36:00 Test Item Value Reference Range Interpretation Comments WBC (test code = WBC) 6.6 3.7-10.4 [facility] PointeBrbapahAZKIUYGLYF3165-08-05 09:36:00 Test Item Value Reference Range Interpretation Comments RBC (test code = RBC) 5.17 4.70-6.10 [facility] PointeZcazlnmRVKSACVVCU6563-43-73 09:36:00 Test Item Value Reference Range Interpretation Comments MCV (test code = MCV) 86.1 80.0-94.0 [facility] PointeGetbtpqLWQJPKTDCB0176-97-03 09:36:00 Test Item Value Reference Range Interpretation Comments Hct (test code = Hct) 44.5 42.0-54.0 [facility] PointeWivgymrLNNWKRYWDV2620-03-09 09:36:00 Test Item Value Reference Range Interpretation Comments MCH (test code = MCH) 28.0 pg 27.0-31.0 [facility] PointeFtebymcFZAGBNQAYU6360-83-40 09:36:00 Test Item Value Reference Range Interpretation Comments Hgb (test code = Hgb) 14.5 14.0-18.0 [facility] PointeYqwwketPAJWOTJVRT8991-03-29 09:36:00 Test Item Value Reference Range Interpretation Comments Lymphocytes # (test code = Lymphocytes 1.7 1.0-5.5 #) [facility] PointeSnjbpypKZZTDXMJSW4415-58-57 09:36:00 Test Item Value Reference Range Interpretation Comments Monocytes # (test code 0.7 See_Comment [Aut omated message] The = Monocytes #) system which generated this result tra nsmitted reference range : <=0.8. The reference r boubacar was not used to int erpret this result as normal/abnormal . [facility] PointeGkazfkxRMEYPNLOIW8589-91-32 09:36:00 Test Item Value Reference Range Interpretation Comments Eosinophils # (test code 0.2 See_Comment [A utomated message] The = Eosinophils #) system whic h generated this result tra nsmitted reference range : <=0.5. The reference r boubacar was not used to int erpret this result as normal/abnormal . [facility] PointeHdzmrcaTEZLNXBWGF0663-23-57 09:36:00 Test Item Value Reference Range Interpretation Comments Lymphocytes (test code = Lymphocytes) 26.1 20.0-40.0 [facility] PointeMjolbdqTMIKQDQILJ1464-40-57 09:36:00 Test Item Value Reference Range Interpretation Comments Segs (test code = Segs) 59.3 45.0-75.0 [facility] PointeLegabdkVRLTQOWSNG4451-81-33 09:36:00 Test Item Value Reference Range Interpretation Comments Basophils (test code = 0.8 See_Comment [Aut omated message] The Basophils) system which ge nerated this result tra nsmitted reference range : <=1.0. The reference r boubacar was not used to int erpret this result as normal/abnormal . [facility] PointeCedgwacVNYUEAIBPN6220-88-11 09:36:00 Test Item Value Reference Range Interpretation Comments Monocytes (test code = Monocytes) 10.5 2.0-12.0 [facility] PointeCvizvptWTTZSFKRYQ4737-46-63 09:36:00 Test Item Value Reference Range Interpretation Comments Eosinophils (test code = 3.3 See_Comment [A utomated message] The Eosinophils) system which ge nerated this result tra nsmitted reference range : <=4.0. The reference r boubacar was not used to int erpret this result as normal/abnormal . [facility] PointeQjacfnzILFQWRRVCP2629-16-90 09:36:00 Test Item Value Reference Range Interpretation Comments Segs-Bands # (test code = Segs-Bands #) 3.9 1.5-8.1 [place] [address]258-05-07 09:36:00 Test Item Value Reference Range Interpretation Comments Globulin (test code = Globulin) 4.4 2.7-4.2 [facility]2018-05-07 09:36:00 Test Item Value Reference Range Interpretation Comments A/G Ratio (test code = A/G Ratio) 0.6 1 0.7-1.6 [facility]2018-05-07 09:36:00 Test Item Value Reference Range Interpretation Comments B/C Ratio (test code = B/C Ratio) 17 1 6-25 [place] [address]258-05-07 09:36:00 Test Item Value Reference Range Interpretation Comments AGAP (test code = AGAP) 11.3 10.0-20.0 [facility]2018-05-07 09:36:00 Test Item Value Reference Range Interpretation Comments eGFR (test code = eGFR) 134 [facility]2018-05-07 09:36:00 Test Item Value Reference Range Interpretation Comments Creatinine Lvl (test code = Creatinine 0.84 0.50-1.40 Lvl) [facility]2018-05-07 09:36:00 Test Item Value Reference Range Interpretation Comments Sodium Lvl (test code = Sodium Lvl) 142 135-145 [facility]2018-05-07 09:36:00 Test Item Value Reference Range Interpretation Comments Glucose Lvl (test code = Glucose Lvl) 99 70-99 [facility]2018-05-07 09:36:00 Test Item Value Reference Range Interpretation Comments BUN (test code = BUN) 14 7-22 [place] [address]-05-07 09:36:00 Test Item Value Reference Range Interpretation Comments Alk Phos (test code = Alk Phos) 79 39-136 [facility]2018-05-07 09:36:00 Test Item Value Reference Range Interpretation Comments Bili Total (test code = Bili Total) 0.3 0.2-1.3 [place] [address]258-05-07 09:36:00 Test Item Value Reference Range Interpretation Comments AST (test code = AST) 14 See_Comment [Auto mated message] The system which ge nerated this result transmit lester reference range : <=37. The reference range was not used to interpr et this result as dany l/abnormal. [facility]2018-05-07 09:36:00 Test Item Value Reference Range Interpretation Comments ALT (test code = ALT) 43 See_Comment [Auto mated message] The system which ge nerated this result transmit lester reference range : <=65. The reference range was not used to interpr et this result as dany l/abnormal. [facility]2018-05-07 09:36:00 Test Item Value Reference Range Interpretation Comments Total Protein (test code = Total 7.1 6.4-8.4 Protein) [place] [address]258-05-07 09:36:00 Test Item Value Reference Range Interpretation Comments Albumin Lvl (test code = Albumin Lvl) 2.7 3.5-5.0 [place] [address]258-05-07 09:36:00 Test Item Value Reference Range Interpretation Comments Calcium Lvl (test code = Calcium Lvl) 9.2 8.5-10.5 [place] [address]258-05-07 09:36:00 Test Item Value Reference Range Interpretation Comments CO2 (test code = CO2) 21 24-32 [facility]2018-05-07 09:36:00 Test Item Value Reference Range Interpretation Comments Potassium Lvl (test code = Potassium 4.3 3.5-5.1 Lvl) [facility]2018-05-07 09:36:00 Test Item Value Reference Range Interpretation Comments Chloride Lvl (test code = Chloride Lvl) 114 95-109 [facility] PointeNbzvsmeKNOVIKAGYK7674-10-86 09:36:00 Test Item Value Reference Range Interpretation Comments MCHC (test code = MCHC) 32.5 32.0-36.0 [facility] PointeQollbclWGZZEQTGHU9484-40-49 09:36:00 Test Item Value Reference Range Interpretation Comments RDW (test code = RDW) 17.5 11.5-14.5 [facility] PointeSynhdsbHGDYPLYALO8643-78-98 09:36:00 Test Item Value Reference Range Interpretation Comments Platelet (test code = Platelet) 400 133-450 [facility]inteVzjkbgrXFMEDDRSHA1996-67-92 09:36:00 Test Item Value Reference Range Interpretation Comments MPV (test code = MPV) 8.5 7.4-10.4 [facility] PointeLcqhgwtTIBJIUKDLM5427-92-21 09:36:00 Test Item Value Reference Range Interpretation Comments WBC (test code = WBC) 6.6 3.7-10.4 [facility] PointeIzgfdswEPEXLKGZHE9399-70-31 09:36:00 Test Item Value Reference Range Interpretation Comments RBC (test code = RBC) 5.17 4.70-6.10 [facility]inteXhfprjrBXQEERCADK1755-13-12 09:36:00 Test Item Value Reference Range Interpretation Comments MCV (test code = MCV) 86.1 80.0-94.0 [facility] PointeZgtjwpdLEAIEZGKOW8935-29-71 09:36:00 Test Item Value Reference Range Interpretation Comments Hct (test code = Hct) 44.5 42.0-54.0 [facility] PointeGyuuillWKWCDYLHTN9503-32-68 09:36:00 Test Item Value Reference Range Interpretation Comments MCH (test code = MCH) 28.0 pg 27.0-31.0 [facility] PointeQrmawerHJZUBFWBQH8569-46-28 09:36:00 Test Item Value Reference Range Interpretation Comments Hgb (test code = Hgb) 14.5 14.0-18.0 [facility] PointeEurjchoKSTPUWFYUP5015-29-72 09:36:00 Test Item Value Reference Range Interpretation Comments Lymphocytes # (test code = Lymphocytes 1.7 1.0-5.5 #) [facility]inteJeifcmmBEYKLNGZTB9904-19-86 09:36:00 Test Item Value Reference Range Interpretation Comments Monocytes # (test code 0.7 See_Comment [Aut omated message] The = Monocytes #) system which generated this result tra nsmitted reference range : <=0.8. The reference r boubacar was not used to int erpret this result as normal/abnormal . [facility]inteLvotzwmKBSLPLFZRN9559-75-22 09:36:00 Test Item Value Reference Range Interpretation Comments Eosinophils # (test code 0.2 See_Comment [A utomated message] The = Eosinophils #) system whic h generated this result tra nsmitted reference range : <=0.5. The reference r boubacar was not used to int erpret this result as normal/abnormal . [facility]intePdlhppoWKHTQGLZDT3265-77-56 09:36:00 Test Item Value Reference Range Interpretation Comments Lymphocytes (test code = Lymphocytes) 26.1 20.0-40.0 [facility] PointeAbdliuxNOASYMFPTF1038-97-50 09:36:00 Test Item Value Reference Range Interpretation Comments Segs (test code = Segs) 59.3 45.0-75.0 [facility] PointeGosfjyeTZEHGBSRXU4240-01-35 09:36:00 Test Item Value Reference Range Interpretation Comments Basophils (test code = 0.8 See_Comment [Aut omated message] The Basophils) system which ge nerated this result tra nsmitted reference range : <=1.0. The reference r boubacar was not used to int erpret this result as normal/abnormal . [facility] PointeVmklaxlLLXJWFSRAZ8081-51-21 09:36:00 Test Item Value Reference Range Interpretation Comments Monocytes (test code = Monocytes) 10.5 2.0-12.0 [facility] PointeNgysebiITEFWLSLTQ3012-80-03 09:36:00 Test Item Value Reference Range Interpretation Comments Eosinophils (test code = 3.3 See_Comment [A utomated message] The Eosinophils) system which ge nerated this result tra nsmitted reference range : <=4.0. The reference r boubacar was not used to int erpret this result as normal/abnormal . [facility]inteYkzlwwsYFOFUGBHJK9398-63-01 09:36:00 Test Item Value Reference Range Interpretation Comments Segs-Bands # (test code = Segs-Bands #) 3.9 1.5-8.1 [facility]2018-05-07 09:36:00 Test Item Value Reference Range Interpretation Comments Globulin (test code = Globulin) 4.4 2.7-4.2 [facility]2018-05-07 09:36:00 Test Item Value Reference Range Interpretation Comments A/G Ratio (test code = A/G Ratio) 0.6 1 0.7-1.6 [place] 801258-05-07 09:36:00 Test Item Value Reference Range Interpretation Comments B/C Ratio (test code = B/C Ratio) 17 1 6-25 [place] 801258-05-07 09:36:00 Test Item Value Reference Range Interpretation Comments AGAP (test code = AGAP) 11.3 10.0-20.0 [facility]2018-05-07 09:36:00 Test Item Value Reference Range Interpretation Comments eGFR (test code = eGFR) 134 [facility]2018-05-07 09:36:00 Test Item Value Reference Range Interpretation Comments Creatinine Lvl (test code = Creatinine 0.84 0.50-1.40 Lvl) [facility]2018-05-07 09:36:00 Test Item Value Reference Range Interpretation Comments Sodium Lvl (test code = Sodium Lvl) 142 135-145 [facility]2018-05-07 09:36:00 Test Item Value Reference Range Interpretation Comments Glucose Lvl (test code = Glucose Lvl) 99 70-99 [facility]2018-05-07 09:36:00 Test Item Value Reference Range Interpretation Comments BUN (test code = BUN) 14 7-22 [facility]2018-05-07 09:36:00 Test Item Value Reference Range Interpretation Comments Alk Phos (test code = Alk Phos) 79 39-136 [facility]2018-05-07 09:36:00 Test Item Value Reference Range Interpretation Comments Bili Total (test code = Bili Total) 0.3 0.2-1.3 [facility]2018-05-07 09:36:00 Test Item Value Reference Range Interpretation Comments AST (test code = AST) 14 See_Comment [Auto mated message] The system which ge nerated this result transmit lester reference range : <=37. The reference range was not used to interpr et this result as dany l/abnormal. [facility]2018-05-07 09:36:00 Test Item Value Reference Range Interpretation Comments ALT (test code = ALT) 43 See_Comment [Auto mated message] The system which ge nerated this result transmit lester reference range : <=65. The reference range was not used to interpr et this result as dany l/abnormal. [facility]2018-05-07 09:36:00 Test Item Value Reference Range Interpretation Comments Total Protein (test code = Total 7.1 6.4-8.4 Protein) [place] 801258-05-07 09:36:00 Test Item Value Reference Range Interpretation Comments Albumin Lvl (test code = Albumin Lvl) 2.7 3.5-5.0 [facility]2018-05-07 09:36:00 Test Item Value Reference Range Interpretation Comments Calcium Lvl (test code = Calcium Lvl) 9.2 8.5-10.5 [facility]2018-05-07 09:36:00 Test Item Value Reference Range Interpretation Comments CO2 (test code = CO2) 21 24-32 [facility]2018-05-07 09:36:00 Test Item Value Reference Range Interpretation Comments Potassium Lvl (test code = Potassium 4.3 3.5-5.1 Lvl) [facility]2018-05-07 09:36:00 Test Item Value Reference Range Interpretation Comments Chloride Lvl (test code = Chloride Lvl) 114 95-109 [facility]inteOlwbsusKEIFMAXERI7149-16-85 09:36:00 Test Item Value Reference Range Interpretation Comments MCHC (test code = MCHC) 32.5 32.0-36.0 [facility] PointeFxzgnynFWCJAFBCFD7460-42-92 09:36:00 Test Item Value Reference Range Interpretation Comments RDW (test code = RDW) 17.5 11.5-14.5 [facility] PointeLckurlxJNUWQXJCFT7957-17-08 09:36:00 Test Item Value Reference Range Interpretation Comments Platelet (test code = Platelet) 400 133-450 [facility] PointeIvajihcWSCMSBUKUT3499-36-39 09:36:00 Test Item Value Reference Range Interpretation Comments MPV (test code = MPV) 8.5 7.4-10.4 [facility] PointeFwkdglbAXJPTCYZOV0756-75-95 09:36:00 Test Item Value Reference Range Interpretation Comments WBC (test code = WBC) 6.6 3.7-10.4 [facility] PointeMlbwwjiBNYMGYKKHX7641-59-09 09:36:00 Test Item Value Reference Range Interpretation Comments RBC (test code = RBC) 5.17 4.70-6.10 [facility] PointeZvyuizkVLHWVUJKNC2516-24-12 09:36:00 Test Item Value Reference Range Interpretation Comments MCV (test code = MCV) 86.1 80.0-94.0 [facility]inteYgbrxvfLCCTNOYZZW2518-09-38 09:36:00 Test Item Value Reference Range Interpretation Comments Hct (test code = Hct) 44.5 42.0-54.0 [facility] PointeGyzhiqpTNDJFFFPGK7720-00-49 09:36:00 Test Item Value Reference Range Interpretation Comments MCH (test code = MCH) 28.0 pg 27.0-31.0 [facility]inteOpnfmzuTIEWKMXDKN0923-40-73 09:36:00 Test Item Value Reference Range Interpretation Comments Hgb (test code = Hgb) 14.5 14.0-18.0 [facility]inteEpjgspzIKNAWMOZYN7484-88-01 09:36:00 Test Item Value Reference Range Interpretation Comments Lymphocytes # (test code = Lymphocytes 1.7 1.0-5.5 #) [facility] PointeUdierwuYCASAIAWXG6728-02-21 09:36:00 Test Item Value Reference Range Interpretation Comments Monocytes # (test code 0.7 See_Comment [Aut omated message] The = Monocytes #) system which generated this result tra nsmitted reference range : <=0.8. The reference r boubacar was not used to int erpret this result as normal/abnormal . [facility]inteQlknasnIZWDFCAOOC2392-54-29 09:36:00 Test Item Value Reference Range Interpretation Comments Eosinophils # (test code 0.2 See_Comment [A utomated message] The = Eosinophils #) system whic h generated this result tra nsmitted reference range : <=0.5. The reference r boubacar was not used to int erpret this result as normal/abnormal . [facility]inteShsncsmVENHGTPXEK8204-76-41 09:36:00 Test Item Value Reference Range Interpretation Comments Lymphocytes (test code = Lymphocytes) 26.1 20.0-40.0 [facility]inteUlfsmmpBHQUZHXUCR5336-31-32 09:36:00 Test Item Value Reference Range Interpretation Comments Segs (test code = Segs) 59.3 45.0-75.0 [facility] PointeOdzeetjNDMEEIQZGL6662-52-86 09:36:00 Test Item Value Reference Range Interpretation Comments Basophils (test code = 0.8 See_Comment [Aut omated message] The Basophils) system which ge nerated this result tra nsmitted reference range : <=1.0. The reference r boubacar was not used to int erpret this result as normal/abnormal . [facility] PointeCykjpzqQXMUGKGTDG5615-38-76 09:36:00 Test Item Value Reference Range Interpretation Comments Monocytes (test code = Monocytes) 10.5 2.0-12.0 [facility] PointeHcuaawvXMSBJMVQXJ3011-81-03 09:36:00 Test Item Value Reference Range Interpretation Comments Eosinophils (test code = 3.3 See_Comment [A utomated message] The Eosinophils) system which ge nerated this result tra nsmitted reference range : <=4.0. The reference r boubacar was not used to int erpret this result as normal/abnormal . [facility]inteQsnjlabXKXEYLAEAQ8110-25-23 09:36:00 Test Item Value Reference Range Interpretation Comments Segs-Bands # (test code = Segs-Bands #) 3.9 1.5-8.1 [facility]2018-05-07 09:36:00 Test Item Value Reference Range Interpretation Comments Globulin (test code = Globulin) 4.4 2.7-4.2 [facility]2018-05-07 09:36:00 Test Item Value Reference Range Interpretation Comments A/G Ratio (test code = A/G Ratio) 0.6 1 0.7-1.6 [facility]2018-05-07 09:36:00 Test Item Value Reference Range Interpretation Comments B/C Ratio (test code = B/C Ratio) 17 1 6-25 [facility]2018-05-07 09:36:00 Test Item Value Reference Range Interpretation Comments AGAP (test code = AGAP) 11.3 10.0-20.0 [facility]2018-05-07 09:36:00 Test Item Value Reference Range Interpretation Comments eGFR (test code = eGFR) 134 [facility]2018-05-07 09:36:00 Test Item Value Reference Range Interpretation Comments Creatinine Lvl (test code = Creatinine 0.84 0.50-1.40 Lvl) [place] 801258-05-07 09:36:00 Test Item Value Reference Range Interpretation Comments Sodium Lvl (test code = Sodium Lvl) 142 135-145 [place] 801258-05-07 09:36:00 Test Item Value Reference Range Interpretation Comments Glucose Lvl (test code = Glucose Lvl) 99 70-99 [facility]2018-05-07 09:36:00 Test Item Value Reference Range Interpretation Comments BUN (test code = BUN) 14 7-22 [facility]2018-05-07 09:36:00 Test Item Value Reference Range Interpretation Comments Alk Phos (test code = Alk Phos) 79 39-136 [place] 801258-05-07 09:36:00 Test Item Value Reference Range Interpretation Comments Bili Total (test code = Bili Total) 0.3 0.2-1.3 [facility]2018-05-07 09:36:00 Test Item Value Reference Range Interpretation Comments AST (test code = AST) 14 See_Comment [Auto mated message] The system which ge nerated this result transmit lester reference range : <=37. The reference range was not used to interpr et this result as dany l/abnormal. [facility]2018-05-07 09:36:00 Test Item Value Reference Range Interpretation Comments ALT (test code = ALT) 43 See_Comment [Auto mated message] The system which ge nerated this result transmit lester reference range : <=65. The reference range was not used to interpr et this result as dany l/abnormal. [facility]2018-05-07 09:36:00 Test Item Value Reference Range Interpretation Comments Total Protein (test code = Total 7.1 6.4-8.4 Protein) [place] 801258-05-07 09:36:00 Test Item Value Reference Range Interpretation Comments Albumin Lvl (test code = Albumin Lvl) 2.7 3.5-5.0 [place] 801258-05-07 09:36:00 Test Item Value Reference Range Interpretation Comments Calcium Lvl (test code = Calcium Lvl) 9.2 8.5-10.5 [facility]2018-05-07 09:36:00 Test Item Value Reference Range Interpretation Comments CO2 (test code = CO2) 21 24-32 [facility]2018-05-07 09:36:00 Test Item Value Reference Range Interpretation Comments Potassium Lvl (test code = Potassium 4.3 3.5-5.1 Lvl) [facility]2018-05-07 09:36:00 Test Item Value Reference Range Interpretation Comments Chloride Lvl (test code = Chloride Lvl) 114 95-109 [facility]inteVeqpxjbIMDHKTWUEE7582-14-61 09:36:00 Test Item Value Reference Range Interpretation Comments MCHC (test code = MCHC) 32.5 32.0-36.0 [facility] PointeNzyzkuiWETSRBNGAT5682-79-96 09:36:00 Test Item Value Reference Range Interpretation Comments RDW (test code = RDW) 17.5 11.5-14.5 [facility] PointeOfapvnlPUOLATWMWL7068-91-93 09:36:00 Test Item Value Reference Range Interpretation Comments Platelet (test code = Platelet) 400 133-450 [facility] PointeOswhmjdTWXZNYYGKF0130-43-93 09:36:00 Test Item Value Reference Range Interpretation Comments MPV (test code = MPV) 8.5 7.4-10.4 [facility]intePwweetgTAXSFVBJEA5096-68-22 09:36:00 Test Item Value Reference Range Interpretation Comments WBC (test code = WBC) 6.6 3.7-10.4 [facility] PointeYfjnwhpCJFDASXWGD8293-64-15 09:36:00 Test Item Value Reference Range Interpretation Comments RBC (test code = RBC) 5.17 4.70-6.10 [facility] PointeCbanpuvEBYSSZZMOZ0138-19-22 09:36:00 Test Item Value Reference Range Interpretation Comments MCV (test code = MCV) 86.1 80.0-94.0 [facility] PointeRumyvljGVEHQDMTPC7365-93-40 09:36:00 Test Item Value Reference Range Interpretation Comments Hct (test code = Hct) 44.5 42.0-54.0 [facility] PointeIhsifloFKHOGJBRUI8717-10-62 09:36:00 Test Item Value Reference Range Interpretation Comments MCH (test code = MCH) 28.0 pg 27.0-31.0 [facility] PointeDlxaimoCRRZNRJUBC1970-99-12 09:36:00 Test Item Value Reference Range Interpretation Comments Hgb (test code = Hgb) 14.5 14.0-18.0 [facility] PointePrbnwrfBNPFYYVBNR1559-28-83 09:36:00 Test Item Value Reference Range Interpretation Comments Lymphocytes # (test code = Lymphocytes 1.7 1.0-5.5 #) [facility] PointeZivvhexQIPQOOQDUJ3061-78-41 09:36:00 Test Item Value Reference Range Interpretation Comments Monocytes # (test code 0.7 See_Comment [Aut omated message] The = Monocytes #) system which generated this result tra nsmitted reference range : <=0.8. The reference r boubacar was not used to int erpret this result as normal/abnormal . [facility]inteUfgmwvuNNYZMIFLXZ9664-22-20 09:36:00 Test Item Value Reference Range Interpretation Comments Eosinophils # (test code 0.2 See_Comment [A utomated message] The = Eosinophils #) system whic h generated this result tra nsmitted reference range : <=0.5. The reference r boubacar was not used to int erpret this result as normal/abnormal . [facility] PointeBrdbjvnAZPVBOXAIY6840-92-45 09:36:00 Test Item Value Reference Range Interpretation Comments Lymphocytes (test code = Lymphocytes) 26.1 20.0-40.0 [facility] PointeRznjvlrXHHSIPKKPG4838-45-22 09:36:00 Test Item Value Reference Range Interpretation Comments Segs (test code = Segs) 59.3 45.0-75.0 [facility] PointeLmsenkuMRUOSAWWML4884-78-66 09:36:00 Test Item Value Reference Range Interpretation Comments Basophils (test code = 0.8 See_Comment [Aut omated message] The Basophils) system which ge nerated this result tra nsmitted reference range : <=1.0. The reference r boubacar was not used to int erpret this result as normal/abnormal . [facility] PointeNwfefqlZYPFTQKHCH4324-48-33 09:36:00 Test Item Value Reference Range Interpretation Comments Monocytes (test code = Monocytes) 10.5 2.0-12.0 [facility] PointeDberpjqXDJAOAAPVQ4394-45-29 09:36:00 Test Item Value Reference Range Interpretation Comments Eosinophils (test code = 3.3 See_Comment [A utomated message] The Eosinophils) system which ge nerated this result tra nsmitted reference range : <=4.0. The reference r boubacar was not used to int erpret this result as normal/abnormal . [facility] PointeNgnklhzZDHMXPQAWM9777-76-49 09:36:00 Test Item Value Reference Range Interpretation Comments Segs-Bands # (test code = Segs-Bands #) 3.9 1.5-8.1 [facility]2018-05-07 09:36:00 Test Item Value Reference Range Interpretation Comments Globulin (test code = Globulin) 4.4 2.7-4.2 [facility]2018-05-07 09:36:00 Test Item Value Reference Range Interpretation Comments A/G Ratio (test code = A/G Ratio) 0.6 1 0.7-1.6 [place] 801258-05-07 09:36:00 Test Item Value Reference Range Interpretation Comments B/C Ratio (test code = B/C Ratio) 17 1 6-25 [facility]2018-05-07 09:36:00 Test Item Value Reference Range Interpretation Comments AGAP (test code = AGAP) 11.3 10.0-20.0 [facility]2018-05-07 09:36:00 Test Item Value Reference Range Interpretation Comments eGFR (test code = eGFR) 134 [facility]2018-05-07 09:36:00 Test Item Value Reference Range Interpretation Comments Creatinine Lvl (test code = Creatinine 0.84 0.50-1.40 Lvl) [facility]2018-05-07 09:36:00 Test Item Value Reference Range Interpretation Comments Sodium Lvl (test code = Sodium Lvl) 142 135-145 [place] 801258-05-07 09:36:00 Test Item Value Reference Range Interpretation Comments Glucose Lvl (test code = Glucose Lvl) 99 70-99 [facility]2018-05-07 09:36:00 Test Item Value Reference Range Interpretation Comments BUN (test code = BUN) 14 7-22 [place] 801258-05-07 09:36:00 Test Item Value Reference Range Interpretation Comments Alk Phos (test code = Alk Phos) 79 39-136 [facility]2018-05-07 09:36:00 Test Item Value Reference Range Interpretation Comments Bili Total (test code = Bili Total) 0.3 0.2-1.3 [facility]2018-05-07 09:36:00 Test Item Value Reference Range Interpretation Comments AST (test code = AST) 14 See_Comment [Auto mated message] The system which ge nerated this result transmit lester reference range : <=37. The reference range was not used to interpr et this result as dany l/abnormal. [place] 801258-05-07 09:36:00 Test Item Value Reference Range Interpretation Comments ALT (test code = ALT) 43 See_Comment [Auto mated message] The system which ge nerated this result transmit lester reference range : <=65. The reference range was not used to interpr et this result as dany l/abnormal. [facility]2018-05-07 09:36:00 Test Item Value Reference Range Interpretation Comments Total Protein (test code = Total 7.1 6.4-8.4 Protein) [facility]2018-05-07 09:36:00 Test Item Value Reference Range Interpretation Comments Albumin Lvl (test code = Albumin Lvl) 2.7 3.5-5.0 [place] 801258-05-07 09:36:00 Test Item Value Reference Range Interpretation Comments Calcium Lvl (test code = Calcium Lvl) 9.2 8.5-10.5 [place] 801258-05-07 09:36:00 Test Item Value Reference Range Interpretation Comments CO2 (test code = CO2) 21 24-32 [facility]2018-05-07 09:36:00 Test Item Value Reference Range Interpretation Comments Potassium Lvl (test code = Potassium 4.3 3.5-5.1 Lvl) [facility]2018-05-07 09:36:00 Test Item Value Reference Range Interpretation Comments Chloride Lvl (test code = Chloride Lvl) 114 95-109 [facility]inteXmuvgjoAFYIGTRLAB8350-96-36 09:36:00 Test Item Value Reference Range Interpretation Comments MCHC (test code = MCHC) 32.5 32.0-36.0 [place] 455988-05-07 09:36:00 Test Item Value Reference Range Interpretation Comments RDW (test code = RDW) 17.5 11.5-14.5 [facility] PointeEkraszjYVZRAFHLZN6084-16-92 09:36:00 Test Item Value Reference Range Interpretation Comments Platelet (test code = Platelet) 400 133-450 [facility] PointeDvkanwyTGGSZCJDBB9042-64-16 09:36:00 Test Item Value Reference Range Interpretation Comments MPV (test code = MPV) 8.5 7.4-10.4 [facility] PointeZzuonubLLKMUSKXXD5890-62-42 09:36:00 Test Item Value Reference Range Interpretation Comments WBC (test code = WBC) 6.6 3.7-10.4 [facility] PointeHaqtzwyPJQWMASYCK9861-11-11 09:36:00 Test Item Value Reference Range Interpretation Comments RBC (test code = RBC) 5.17 4.70-6.10 [facility] PointeZbzrufpKGQFPMMZPY8219-99-33 09:36:00 Test Item Value Reference Range Interpretation Comments MCV (test code = MCV) 86.1 80.0-94.0 [facility] [place]wh[place]JCFLTFUXB4188[place]25-79 09:36:00 Test Item Value Reference Range Interpretation Comments Hct (test code = Hct) 44.5 42.0-54.0 [facility] [place]inteFpzqunpQEDRAFYBVH9211-68-22 09:36:00 Test Item Value Reference Range Interpretation Comments MCH (test code = MCH) 28.0 pg 27.0-31.0 [facility] [place]inteMbosquiFBTAQBSAYQ5139-29-25 09:36:00 Test Item Value Reference Range Interpretation Comments Hgb (test code = Hgb) 14.5 14.0-18.0 [facility] [place]inteIuhbqloEYJWMBRYQF5176-60-69 09:36:00 Test Item Value Reference Range Interpretation Comments Lymphocytes # (test code = Lymphocytes 1.7 1.0-5.5 #) [facility] [place] PointeFhhgouaJSPEHVIVOK8230-71-25 09:36:00 Test Item Value Reference Range Interpretation Comments Monocytes # (test code 0.7 See_Comment [Aut omated message] The = Monocytes #) system which generated this result tra nsmitted reference range : <=0.8. The reference r boubacar was not used to int erpret this result as normal/abnormal . [facility] [place]inteSuktdcrBZCZFMIXSK9194-31-40 09:36:00 Test Item Value Reference Range Interpretation Comments Eosinophils # (test code 0.2 See_Comment [A utomated message] The = Eosinophils #) system whic h generated this result tra nsmitted reference range : <=0.5. The reference r boubacar was not used to int erpret this result as normal/abnormal . [facility] [place] PointeFrnlapkYZQGJFIJMM1658-15-82 09:36:00 Test Item Value Reference Range Interpretation Comments Lymphocytes (test code = Lymphocytes) 26.1 20.0-40.0 [facility] [place] PointeVfwvtkfEUTCEFVMPJ0207-92-96 09:36:00 Test Item Value Reference Range Interpretation Comments Segs (test code = Segs) 59.3 45.0-75.0 [facility] [place] PointePjycnndGEUBHPTPOO7658-65-50 09:36:00 Test Item Value Reference Range Interpretation Comments Basophils (test code = 0.8 See_Comment [Aut omated message] The Basophils) system which ge nerated this result tra nsmitted reference range : <=1.0. The reference r boubacar was not used to int erpret this result as normal/abnormal . [facility] [place] PointeFqqihunCVVUYDRVNF9573-66-84 09:36:00 Test Item Value Reference Range Interpretation Comments Monocytes (test code = Monocytes) 10.5 2.0-12.0 [facility] [place]inteXwzvqnwQABECGWWHD9813-66-22 09:36:00 Test Item Value Reference Range Interpretation Comments Eosinophils (test code = 3.3 See_Comment [A utomated message] The Eosinophils) system which ge nerated this result tra nsmitted reference range : <=4.0. The reference r boubacar was not used to int erpret this result as normal/abnormal . [facility] [place]inteQpnazuoBJGEOPHXUH5968-04-78 09:36:00 Test Item Value Reference Range Interpretation Comments Segs-Bands # (test code = Segs-Bands #) 3.9 1.5-8.1 [facility]2018-05-07 09:36:00 Test Item Value Reference Range Interpretation Comments Globulin (test code = Globulin) 4.4 2.7-4.2 [facility]2018-05-07 09:36:00 Test Item Value Reference Range Interpretation Comments A/G Ratio (test code = A/G Ratio) 0.6 1 0.7-1.6 [facility]2018-05-07 09:36:00 Test Item Value Reference Range Interpretation Comments B/C Ratio (test code = B/C Ratio) 17 1 6-25 [place] [address]-05-07 09:36:00 Test Item Value Reference Range Interpretation Comments AGAP (test code = AGAP) 11.3 10.0-20.0 [facility]2018-05-07 09:36:00 Test Item Value Reference Range Interpretation Comments eGFR (test code = eGFR) 134 [place] 801258-05-07 09:36:00 Test Item Value Reference Range Interpretation Comments Creatinine Lvl (test code = Creatinine 0.84 0.50-1.40 Lvl) [facility]2018-05-07 09:36:00 Test Item Value Reference Range Interpretation Comments Sodium Lvl (test code = Sodium Lvl) 142 135-145 [facility]2018-05-07 09:36:00 Test Item Value Reference Range Interpretation Comments Glucose Lvl (test code = Glucose Lvl) 99 70-99 [place] 801258-05-07 09:36:00 Test Item Value Reference Range Interpretation Comments BUN (test code = BUN) 14 7-22 [facility]2018-05-07 09:36:00 Test Item Value Reference Range Interpretation Comments Alk Phos (test code = Alk Phos) 79 39-136 [facility]2018-05-07 09:36:00 Test Item Value Reference Range Interpretation Comments Bili Total (test code = Bili Total) 0.3 0.2-1.3 [place] 801258-05-07 09:36:00 Test Item Value Reference Range Interpretation Comments AST (test code = AST) 14 See_Comment [Auto mated message] The system which ge nerated this result transmit lester reference range : <=37. The reference range was not used to interpr et this result as dany l/abnormal. [facility]2018-05-07 09:36:00 Test Item Value Reference Range Interpretation Comments ALT (test code = ALT) 43 See_Comment [Auto mated message] The system which ge nerated this result transmit lester reference range : <=65. The reference range was not used to interpr et this result as dany l/abnormal. [facility]2018-05-07 09:36:00 Test Item Value Reference Range Interpretation Comments Total Protein (test code = Total 7.1 6.4-8.4 Protein) [place] 801258-05-07 09:36:00 Test Item Value Reference Range Interpretation Comments Albumin Lvl (test code = Albumin Lvl) 2.7 3.5-5.0 [facility]2018-05-07 09:36:00 Test Item Value Reference Range Interpretation Comments Calcium Lvl (test code = Calcium Lvl) 9.2 8.5-10.5 [facility]2018-05-07 09:36:00 Test Item Value Reference Range Interpretation Comments CO2 (test code = CO2) 21 24-32 [facility]2018-05-07 09:36:00 Test Item Value Reference Range Interpretation Comments Potassium Lvl (test code = Potassium 4.3 3.5-5.1 Lvl) [facility]2018-05-07 09:36:00 Test Item Value Reference Range Interpretation Comments Chloride Lvl (test code = Chloride Lvl) 114 95-109 [facility] [place]inteRbmlcbsUABPHSXOVB4697-61-59 09:36:00 Test Item Value Reference Range Interpretation Comments MCHC (test code = MCHC) 32.5 32.0-36.0 [facility] [place] PointeKrpyfbtSYXQAWEXKC9184-92-06 09:36:00 Test Item Value Reference Range Interpretation Comments RDW (test code = RDW) 17.5 11.5-14.5 [facility] [place]inteAsqdaatNNOAOOMFEP5128-41-04 09:36:00 Test Item Value Reference Range Interpretation Comments Platelet (test code = Platelet) 400 133-450 [facility] [place] PointeEowyapiFWAHSMDGII4812-71-06 09:36:00 Test Item Value Reference Range Interpretation Comments MPV (test code = MPV) 8.5 7.4-10.4 [facility] [place] PointeVubkzeaYTHPYMSZYY8655-18-78 09:36:00 Test Item Value Reference Range Interpretation Comments WBC (test code = WBC) 6.6 3.7-10.4 [facility] [place] PointeLpjkqfgJRPMGQSZPT9720-89-36 09:36:00 Test Item Value Reference Range Interpretation Comments RBC (test code = RBC) 5.17 4.70-6.10 [place] 455988-05-07 09:36:00 Test Item Value Reference Range Interpretation Comments MCV (test code = MCV) 86.1 80.0-94.0 [place] 455988-05-07 09:36:00 Test Item Value Reference Range Interpretation Comments Hct (test code = Hct) 44.5 42.0-54.0 [facility] [place]inteXyysazuJSCUUPBMRS1333-45-48 09:36:00 Test Item Value Reference Range Interpretation Comments MCH (test code = MCH) 28.0 pg 27.0-31.0 [facility] [place]inteNsfgaacGZQFCASHOH4180-19-00 09:36:00 Test Item Value Reference Range Interpretation Comments Hgb (test code = Hgb) 14.5 14.0-18.0 [facility] [place] PointeYpgvziqPMCBCSGQLW9624-63-45 09:36:00 Test Item Value Reference Range Interpretation Comments Lymphocytes # (test code = Lymphocytes 1.7 1.0-5.5 #) [facility] [place] PointeJnhepiuVBRLFNSBDL4696-59-56 09:36:00 Test Item Value Reference Range Interpretation Comments Monocytes # (test code 0.7 See_Comment [Aut omated message] The = Monocytes #) system which generated this result tra nsmitted reference range : <=0.8. The reference r boubacar was not used to int erpret this result as normal/abnormal . [facility] [place] PointeTvszoosSUABGXXXOK6692-85-13 09:36:00 Test Item Value Reference Range Interpretation Comments Eosinophils # (test code 0.2 See_Comment [A utomated message] The = Eosinophils #) system whic h generated this result tra nsmitted reference range : <=0.5. The reference r boubacar was not used to int erpret this result as normal/abnormal . [facility] [place]inteCyacbzpDRHMXPWRQL8920-89-86 09:36:00 Test Item Value Reference Range Interpretation Comments Lymphocytes (test code = Lymphocytes) 26.1 20.0-40.0 [facility] [place] PointePypftntDNTTTXFJFY7141-94-77 09:36:00 Test Item Value Reference Range Interpretation Comments Segs (test code = Segs) 59.3 45.0-75.0 [facility] [place] PointeHkcekvuWIJRWBXYCW4955-63-70 09:36:00 Test Item Value Reference Range Interpretation Comments Basophils (test code = 0.8 See_Comment [Aut omated message] The Basophils) system which ge nerated this result tra nsmitted reference range : <=1.0. The reference r boubacar was not used to int erpret this result as normal/abnormal . [facility] [place]inteKvonwyhFIKQLXVDBS8383-11-08 09:36:00 Test Item Value Reference Range Interpretation Comments Monocytes (test code = Monocytes) 10.5 2.0-12.0 [facility] [place] PointeDztgtdyHSUTYVLFDM5405-20-38 09:36:00 Test Item Value Reference Range Interpretation Comments Eosinophils (test code = 3.3 See_Comment [A utomated message] The Eosinophils) system which ge nerated this result tra nsmitted reference range : <=4.0. The reference r boubacar was not used to int erpret this result as normal/abnormal . [facility] [place]intePubkgpzKGYSZBZTNB9835-50-48 09:36:00 Test Item Value Reference Range Interpretation Comments Segs-Bands # (test code = Segs-Bands #) 3.9 1.5-8.1 [facility]2018-05-07 09:36:00 Test Item Value Reference Range Interpretation Comments Globulin (test code = Globulin) 4.4 2.7-4.2 [facility]2018-05-07 09:36:00 Test Item Value Reference Range Interpretation Comments A/G Ratio (test code = A/G Ratio) 0.6 1 0.7-1.6 [facility]2018-05-07 09:36:00 Test Item Value Reference Range Interpretation Comments B/C Ratio (test code = B/C Ratio) 17 1 6-25 [facility]2018-05-07 09:36:00 Test Item Value Reference Range Interpretation Comments AGAP (test code = AGAP) 11.3 10.0-20.0 [facility]2018-05-07 09:36:00 Test Item Value Reference Range Interpretation Comments eGFR (test code = eGFR) 134 [facility]2018-05-07 09:36:00 Test Item Value Reference Range Interpretation Comments Creatinine Lvl (test code = Creatinine 0.84 0.50-1.40 Lvl) [facility]2018-05-07 09:36:00 Test Item Value Reference Range Interpretation Comments Sodium Lvl (test code = Sodium Lvl) 142 135-145 [facility]2018-05-07 09:36:00 Test Item Value Reference Range Interpretation Comments Glucose Lvl (test code = Glucose Lvl) 99 70-99 [facility]2018-05-07 09:36:00 Test Item Value Reference Range Interpretation Comments BUN (test code = BUN) 14 7-22 [facility]2018-05-07 09:36:00 Test Item Value Reference Range Interpretation Comments Alk Phos (test code = Alk Phos) 79 39-136 [facility]2018-05-07 09:36:00 Test Item Value Reference Range Interpretation Comments Bili Total (test code = Bili Total) 0.3 0.2-1.3 [place] 801258-05-07 09:36:00 Test Item Value Reference Range Interpretation Comments AST (test code = AST) 14 See_Comment [Auto mated message] The system which ge nerated this result transmit lester reference range : <=37. The reference range was not used to interpr et this result as dany l/abnormal. [facility]2018-05-07 09:36:00 Test Item Value Reference Range Interpretation Comments ALT (test code = ALT) 43 See_Comment [Auto mated message] The system which ge nerated this result transmit lester reference range : <=65. The reference range was not used to interpr et this result as dany l/abnormal. [facility]2018-05-07 09:36:00 Test Item Value Reference Range Interpretation Comments Total Protein (test code = Total 7.1 6.4-8.4 Protein) [facility]2018-05-07 09:36:00 Test Item Value Reference Range Interpretation Comments Albumin Lvl (test code = Albumin Lvl) 2.7 3.5-5.0 [facility]2018-05-07 09:36:00 Test Item Value Reference Range Interpretation Comments Calcium Lvl (test code = Calcium Lvl) 9.2 8.5-10.5 [facility]2018-05-07 09:36:00 Test Item Value Reference Range Interpretation Comments CO2 (test code = CO2) 21 24-32 [facility]2018-05-07 09:36:00 Test Item Value Reference Range Interpretation Comments Potassium Lvl (test code = Potassium 4.3 3.5-5.1 Lvl) [facility]2018-05-07 09:36:00 Test Item Value Reference Range Interpretation Comments Chloride Lvl (test code = Chloride Lvl) 114 95-109 [facility]dfymcnIZMKEYIRYZ3672-27-93 09:36:00 Test Item Value Reference Range Interpretation Comments MCHC (test code = MCHC) 32.5 32.0-36.0 [facility] [place] PointeIhmggagSBQEWIOERQ3502-10-62 09:36:00 Test Item Value Reference Range Interpretation Comments RDW (test code = RDW) 17.5 11.5-14.5 [facility] [place] PointeGecdlscJCMREYKYOO8139-26-78 09:36:00 Test Item Value Reference Range Interpretation Comments Platelet (test code = Platelet) 400 133-450 [facility] [place] PointeTipfwzhQUPEQPYSKU7724-77-45 09:36:00 Test Item Value Reference Range Interpretation Comments MPV (test code = MPV) 8.5 7.4-10.4 [facility] [place] PointeHphyfghUTPBWNZMHO1010-22-75 09:36:00 Test Item Value Reference Range Interpretation Comments WBC (test code = WBC) 6.6 3.7-10.4 [facility] [place] PointeLvvugswAXHMDMERCO7655-27-15 09:36:00 Test Item Value Reference Range Interpretation Comments RBC (test code = RBC) 5.17 4.70-6.10 [facility] [place] PointeWoiirsaBUHPGPEBMK7194-37-84 09:36:00 Test Item Value Reference Range Interpretation Comments MCV (test code = MCV) 86.1 80.0-94.0 [facility] PointeDkyuvviWZCFWDLDCL6317-86-23 09:36:00 Test Item Value Reference Range Interpretation Comments Hct (test code = Hct) 44.5 42.0-54.0 [facility] [place] PointeRdxaxumTFLIEISPAY7324-20-61 09:36:00 Test Item Value Reference Range Interpretation Comments MCH (test code = MCH) 28.0 pg 27.0-31.0 [facility] [place] PointeWslocozUMBCURAZIX0614-16-05 09:36:00 Test Item Value Reference Range Interpretation Comments Hgb (test code = Hgb) 14.5 14.0-18.0 [facility] [place] PointeSacahoaAKEFAFJUOL4246-77-54 09:36:00 Test Item Value Reference Range Interpretation Comments Lymphocytes # (test code = Lymphocytes 1.7 1.0-5.5 #) [facility] [place] PointeIklkscxCEPRJXHAFB8970-65-14 09:36:00 Test Item Value Reference Range Interpretation Comments Monocytes # (test code 0.7 See_Comment [Aut omated message] The = Monocytes #) system which generated this result tra nsmitted reference range : <=0.8. The reference r boubacar was not used to int erpret this result as normal/abnormal . [facility] [place] PointeIbdcxjfPJUCTKINFU0978-29-21 09:36:00 Test Item Value Reference Range Interpretation Comments Eosinophils # (test code 0.2 See_Comment [A utomated message] The = Eosinophils #) system whic h generated this result tra nsmitted reference range : <=0.5. The reference r boubacar was not used to int erpret this result as normal/abnormal . [facility] [place]inteXgdfwglOLVFLHUAEH8216-34-17 09:36:00 Test Item Value Reference Range Interpretation Comments Lymphocytes (test code = Lymphocytes) 26.1 20.0-40.0 [facility] [place] PointeHpwchfsREFMTXWLKB3853-44-15 09:36:00 Test Item Value Reference Range Interpretation Comments Segs (test code = Segs) 59.3 45.0-75.0 [facility] [place] PointeKlgbpxrGZBNTBQCPN8356-37-60 09:36:00 Test Item Value Reference Range Interpretation Comments Basophils (test code = 0.8 See_Comment [Aut omated message] The Basophils) system which ge nerated this result tra nsmitted reference range : <=1.0. The reference r boubacar was not used to int erpret this result as normal/abnormal . [facility] [place] PointeXarslniLXLHPOLBJI4765-99-12 09:36:00 Test Item Value Reference Range Interpretation Comments Monocytes (test code = Monocytes) 10.5 2.0-12.0 [facility] PointeHpxrhltBXYCFIFIIH2782-05-35 09:36:00 Test Item Value Reference Range Interpretation Comments Eosinophils (test code = 3.3 See_Comment [A utomated message] The Eosinophils) system which ge nerated this result tra nsmitted reference range : <=4.0. The reference r boubacar was not used to int erpret this result as normal/abnormal . [facility] [place] PointeUjwnukgXCOEXLBPKD3053-63-35 09:36:00 Test Item Value Reference Range Interpretation Comments Segs-Bands # (test code = Segs-Bands #) 3.9 1.5-8.1 [place] [id number] 21:02:00 Test Item Value Reference Range Interpretation Comments Vanco Tr TND (test code = Vanco Tr 15:30pm TND) [place] 31455018-05-06 21:02:00 Test Item Value Reference Range Interpretation Comments Vanco Tr (test code = Vanco Tr) 9.1 [facility]dtvyjXTVYBLWZVW3412-09-81 21:02:00 Test Item Value Reference Range Interpretation Comments Vanco Tr TND (test code = Vanco Tr 15:30pm TND) [facility]TknzpbaAMRASHVIRE4136-02-80 21:02:00 Test Item Value Reference Range Interpretation Comments Vanco Tr (test code = Vanco Tr) 9.1 [facility] RenaissanceCatxoxpQZQYWOOKHS0027-28-21 21:02:00 Test Item Value Reference Range Interpretation Comments Vanco Tr TND (test code = Vanco Tr 15:30pm TND) [facility] RenaissanceJkonidiBXLYTWIHTI6048-80-64 21:02:00 Test Item Value Reference Range Interpretation Comments Vanco Tr (test code = Vanco Tr) 9.1 [facility] RenaissanceHcwomapURMUAQWPTV1884-43-01 21:02:00 Test Item Value Reference Range Interpretation Comments Vanco Tr TND (test code = Vanco Tr 15:30pm TND) [facility]UjazjglRWCUGLPZRA0402-63-48 21:02:00 Test Item Value Reference Range Interpretation Comments Vanco Tr (test code = Vanco Tr) 9.1 [facility] RenaissanceFgmvvjmGLHGGTWQDA3089-32-14 21:02:00 Test Item Value Reference Range Interpretation Comments Vanco Tr TND (test code = Vanco Tr 15:30pm TND) [facility]wqgrtjSDFAXMOCYE1679-36-52 21:02:00 Test Item Value Reference Range Interpretation Comments Vanco Tr (test code = Vanco Tr) 9.1 [facility] RenaissanceEoenysmANGMFVOZWL0913-12-55 21:02:00 Test Item Value Reference Range Interpretation Comments Vanco Tr TND (test code = Vanco Tr 15:30pm TND) [facility] RenaissancePlcdpioVRUTWKFCLI7365-38-65 21:02:00 Test Item Value Reference Range Interpretation Comments Vanco Tr (test code = Vanco Tr) 9.1 [facility] RenaissanceJzoundpCLVSXCQUBX5321-60-75 21:02:00 Test Item Value Reference Range Interpretation Comments Vanco Tr TND (test code = Vanco Tr 15:30pm TND) [facility] RenaissanceGutpwapRUHLLMKFOT8980-26-68 21:02:00 Test Item Value Reference Range Interpretation Comments Vanco Tr (test code = Vanco Tr) 9.1 [place] [id number] 21:02:00 Test Item Value Reference Range Interpretation Comments Vanco Tr TND (test code = Vanco Tr 15:30pm TND) [place] [id number] 21:02:00 Test Item Value Reference Range Interpretation Comments Vanco Tr (test code = Vanco Tr) 9.1 [facility]2018-05-06 07:07:00 Test Item Value Reference Range Interpretation Comments Glucose Lvl (test code = Glucose Lvl) 74 70-99 [facility]2018-05-06 07:07:00 Test Item Value Reference Range Interpretation Comments BUN (test code = BUN) 12 7-22 [facility]2018-05-06 07:07:00 Test Item Value Reference Range Interpretation Comments Creatinine Lvl (test code = Creatinine 0.75 0.50-1.40 Lvl) [facility]2018-05-06 07:07:00 Test Item Value Reference Range Interpretation Comments eGFR (test code = eGFR) 140 [facility]2018-05-06 07:07:00 Test Item Value Reference Range Interpretation Comments Albumin Lvl (test code = Albumin Lvl) 2.9 3.5-5.0 [facility]2018-05-06 07:07:00 Test Item Value Reference Range Interpretation Comments Globulin (test code = Globulin) 4.4 2.7-4.2 [facility]2018-05-06 07:07:00 Test Item Value Reference Range Interpretation Comments A/G Ratio (test code = A/G Ratio) 0.7 1 0.7-1.6 [facility]2018-05-06 07:07:00 Test Item Value Reference Range Interpretation Comments Bili Total (test code = Bili Total) 0.4 0.2-1.3 [facility]2018-05-06 07:07:00 Test Item Value Reference Range Interpretation Comments Alk Phos (test code = Alk Phos) 71 39-136 [facility]2018-05-06 07:07:00 Test Item Value Reference Range Interpretation Comments AST (test code = AST) 15 See_Comment [Auto mated message] The system which ge nerated this result transmit lester reference range : <=37. The reference range was not used to interpr et this result as dany l/abnormal. [facility]2018-05-06 07:07:00 Test Item Value Reference Range Interpretation Comments ALT (test code = ALT) 28 See_Comment [Auto mated message] The system which ge nerated this result transmit lester reference range : <=65. The reference range was not used to interpr et this result as dany l/abnormal. [facility]2018-05-06 07:07:00 Test Item Value Reference Range Interpretation Comments Potassium Lvl (test code = Potassium 4.4 3.5-5.1 Lvl) [facility]2018-05-06 07:07:00 Test Item Value Reference Range Interpretation Comments Sodium Lvl (test code = Sodium Lvl) 147 135-145 [facility]2018-05-06 07:07:00 Test Item Value Reference Range Interpretation Comments CO2 (test code = CO2) 25 24-32 [facility]2018-05-06 07:07:00 Test Item Value Reference Range Interpretation Comments Chloride Lvl (test code = Chloride Lvl) 114 95-109 [place] 801258-05-06 07:07:00 Test Item Value Reference Range Interpretation Comments B/C Ratio (test code = B/C Ratio) 16 1 6-25 [place] 801258-05-06 07:07:00 Test Item Value Reference Range Interpretation Comments Calcium Lvl (test code = Calcium Lvl) 8.7 8.5-10.5 [place] 801258-05-06 07:07:00 Test Item Value Reference Range Interpretation Comments AGAP (test code = AGAP) 12.4 10.0-20.0 [place] 801258-05-06 07:07:00 Test Item Value Reference Range Interpretation Comments Total Protein (test code = Total 7.3 6.4-8.4 Protein) [facility]inteNubgugeUAIXKYIHFU2985-83-80 07:07:00 Test Item Value Reference Range Interpretation Comments Platelet (test code = Platelet) 345 133-450 [facility] PointeKddswuyHCFHRITMMR2170-53-64 07:07:00 Test Item Value Reference Range Interpretation Comments MPV (test code = MPV) 8.7 7.4-10.4 [facility] PointeXnkxqufGUJJPKUWTV4688-58-87 07:07:00 Test Item Value Reference Range Interpretation Comments WBC (test code = WBC) 6.9 3.7-10.4 [facility] PointeUlpdtnfSEHJGLIBRG2760-27-93 07:07:00 Test Item Value Reference Range Interpretation Comments RBC (test code = RBC) 5.30 4.70-6.10 [facility] PointeYnunanwNFCOTBKSUM4817-23-41 07:07:00 Test Item Value Reference Range Interpretation Comments MCHC (test code = MCHC) 32.8 32.0-36.0 [facility] PointeOcmhknlWMLRYRIKOJ5743-33-34 07:07:00 Test Item Value Reference Range Interpretation Comments MCH (test code = MCH) 27.9 pg 27.0-31.0 [facility] PointeAqjxwjdJWUDRSRMDI1213-70-62 07:07:00 Test Item Value Reference Range Interpretation Comments Hgb (test code = Hgb) 14.8 14.0-18.0 [facility] PointeVqsbmymGXNCBOSOJU4624-21-33 07:07:00 Test Item Value Reference Range Interpretation Comments MCV (test code = MCV) 85.0 80.0-94.0 [facility] PointeTkhqrglRLNYOBWXBU2318-98-90 07:07:00 Test Item Value Reference Range Interpretation Comments Hct (test code = Hct) 45.1 42.0-54.0 [facility] PointeTzqayfmJBWUIUWJRU2749-89-46 07:07:00 Test Item Value Reference Range Interpretation Comments RDW (test code = RDW) 17.5 11.5-14.5 [facility] PointeHclmnxcNTPHFSVKEF1314-50-93 07:07:00 Test Item Value Reference Range Interpretation Comments Eosinophils # (test code 0.2 See_Comment [A utomated message] The = Eosinophils #) system whic h generated this result tra nsmitted reference range : <=0.5. The reference r boubacar was not used to int erpret this result as normal/abnormal . [facility] PointeNtmhnncIUDEXIMJPR2407-52-46 07:07:00 Test Item Value Reference Range Interpretation Comments Lymphocytes # (test code = Lymphocytes 2.0 1.0-5.5 #) [facility] PointeVpmusdfZDQHFPQUVX9212-87-30 07:07:00 Test Item Value Reference Range Interpretation Comments Monocytes # (test code 0.7 See_Comment [Aut omated message] The = Monocytes #) system which generated this result tra nsmitted reference range : <=0.8. The reference r boubacar was not used to int erpret this result as normal/abnormal . [facility] PointePuqmmdhWFZKUUGBLE6239-48-43 07:07:00 Test Item Value Reference Range Interpretation Comments Eosinophils (test code = 2.4 See_Comment [A utomated message] The Eosinophils) system which ge nerated this result tra nsmitted reference range : <=4.0. The reference r boubacar was not used to int erpret this result as normal/abnormal . [facility] PointeEtmkazqVMHEQUJJWY4972-75-05 07:07:00 Test Item Value Reference Range Interpretation Comments Basophils (test code = 0.6 See_Comment [Aut omated message] The Basophils) system which ge nerated this result tra nsmitted reference range : <=1.0. The reference r boubacar was not used to int erpret this result as normal/abnormal . [facility] PointeNrkfkcdIJVBVESNPN2675-66-75 07:07:00 Test Item Value Reference Range Interpretation Comments Segs-Bands # (test code = Segs-Bands #) 4.0 1.5-8.1 [facility] PointeThfilgdTSEVQEEZVY4755-50-02 07:07:00 Test Item Value Reference Range Interpretation Comments Monocytes (test code = Monocytes) 10.4 2.0-12.0 [facility] PointeRxfeixwDJTKEAQMNS4127-70-50 07:07:00 Test Item Value Reference Range Interpretation Comments RBC Morph (test code = Normal (11/17/17 2:07 AM) RBC Morph) [facility] PointeUovucwoEKJMGVASGL5498-88-08 07:07:00 Test Item Value Reference Range Interpretation Comments Segs (test code = Segs) 58.1 45.0-75.0 [facility] PointePklfesqQWYIRDLXFP2527-37-87 07:07:00 Test Item Value Reference Range Interpretation Comments Plt Morph (test code = Normal (11/17/17 2:07 AM) Plt Morph) [facility] PointeNxcqbhwSCDIHOQYDQ9070-72-82 07:07:00 Test Item Value Reference Range Interpretation Comments Lymphocytes (test code = Lymphocytes) 28.5 20.0-40.0 [facility]2018-05-06 07:07:00 Test Item Value Reference Range Interpretation Comments Glucose Lvl (test code = Glucose Lvl) 74 70-99 [place] 801258-05-06 07:07:00 Test Item Value Reference Range Interpretation Comments BUN (test code = BUN) 12 7-22 [place] 801258-05-06 07:07:00 Test Item Value Reference Range Interpretation Comments Creatinine Lvl (test code = Creatinine 0.75 0.50-1.40 Lvl) [place] [address]-05-06 07:07:00 Test Item Value Reference Range Interpretation Comments eGFR (test code = eGFR) 140 [place] 801258-05-06 07:07:00 Test Item Value Reference Range Interpretation Comments Albumin Lvl (test code = Albumin Lvl) 2.9 3.5-5.0 [place] 801258-05-06 07:07:00 Test Item Value Reference Range Interpretation Comments Globulin (test code = Globulin) 4.4 2.7-4.2 [place] [address]-05-06 07:07:00 Test Item Value Reference Range Interpretation Comments A/G Ratio (test code = A/G Ratio) 0.7 1 0.7-1.6 [place] [address]851-05-06 07:07:00 Test Item Value Reference Range Interpretation Comments Bili Total (test code = Bili Total) 0.4 0.2-1.3 [place] [address]851-05-06 07:07:00 Test Item Value Reference Range Interpretation Comments Alk Phos (test code = Alk Phos) 71 39-136 [place] 801258-05-06 07:07:00 Test Item Value Reference Range Interpretation Comments AST (test code = AST) 15 See_Comment [Auto mated message] The system which ge nerated this result transmit lester reference range : <=37. The reference range was not used to interpr et this result as dany l/abnormal. [place] [address]-05-06 07:07:00 Test Item Value Reference Range Interpretation Comments ALT (test code = ALT) 28 See_Comment [Auto mated message] The system which ge nerated this result transmit lester reference range : <=65. The reference range was not used to interpr et this result as dany l/abnormal. [place] 801258-05-06 07:07:00 Test Item Value Reference Range Interpretation Comments Potassium Lvl (test code = Potassium 4.4 3.5-5.1 Lvl) [facility]2018-05-06 07:07:00 Test Item Value Reference Range Interpretation Comments Sodium Lvl (test code = Sodium Lvl) 147 135-145 [facility]2018-05-06 07:07:00 Test Item Value Reference Range Interpretation Comments CO2 (test code = CO2) 25 24-32 [facility]2018-05-06 07:07:00 Test Item Value Reference Range Interpretation Comments Chloride Lvl (test code = Chloride Lvl) 114 95-109 [place] 801258-05-06 07:07:00 Test Item Value Reference Range Interpretation Comments B/C Ratio (test code = B/C Ratio) 16 1 6-25 [place] 801258-05-06 07:07:00 Test Item Value Reference Range Interpretation Comments Calcium Lvl (test code = Calcium Lvl) 8.7 8.5-10.5 [facility]2018-05-06 07:07:00 Test Item Value Reference Range Interpretation Comments AGAP (test code = AGAP) 12.4 10.0-20.0 [facility]2018-05-06 07:07:00 Test Item Value Reference Range Interpretation Comments Total Protein (test code = Total 7.3 6.4-8.4 Protein) [facility]inteVnnsmsyUSYARGRKKV2746-99-55 07:07:00 Test Item Value Reference Range Interpretation Comments Platelet (test code = Platelet) 345 133-450 [facility] PointeCfzqsfiYGXHVCIODC3110-18-68 07:07:00 Test Item Value Reference Range Interpretation Comments MPV (test code = MPV) 8.7 7.4-10.4 [facility] PointeTztzivxOKGAJMWSJL5406-20-73 07:07:00 Test Item Value Reference Range Interpretation Comments WBC (test code = WBC) 6.9 3.7-10.4 [facility] PointeQskztzoXUXZJNIKPS6577-60-95 07:07:00 Test Item Value Reference Range Interpretation Comments RBC (test code = RBC) 5.30 4.70-6.10 [facility] PointeFylipntWHLADTGYFV0244-03-56 07:07:00 Test Item Value Reference Range Interpretation Comments MCHC (test code = MCHC) 32.8 32.0-36.0 [place] 455988-05-06 07:07:00 Test Item Value Reference Range Interpretation Comments MCH (test code = MCH) 27.9 pg 27.0-31.0 [facility] PointeGhsdtplDQRCTRQXKZ7657-66-58 07:07:00 Test Item Value Reference Range Interpretation Comments Hgb (test code = Hgb) 14.8 14.0-18.0 [facility] PointeJptiiulJBUWSXKWCM8602-45-66 07:07:00 Test Item Value Reference Range Interpretation Comments MCV (test code = MCV) 85.0 80.0-94.0 [facility] PointeWmlkccnPVZQBDCMKF0173-74-39 07:07:00 Test Item Value Reference Range Interpretation Comments Hct (test code = Hct) 45.1 42.0-54.0 [facility] PointeSnwjjcuAUMQJVJMWE7422-51-93 07:07:00 Test Item Value Reference Range Interpretation Comments RDW (test code = RDW) 17.5 11.5-14.5 [facility] PointeQufaoemMFUNNDFSKB4184-17-58 07:07:00 Test Item Value Reference Range Interpretation Comments Eosinophils # (test code 0.2 See_Comment [A utomated message] The = Eosinophils #) system whic h generated this result tra nsmitted reference range : <=0.5. The reference r boubacar was not used to int erpret this result as normal/abnormal . [facility] PointeFokaaibSCYGKSYMPD7762-84-05 07:07:00 Test Item Value Reference Range Interpretation Comments Lymphocytes # (test code = Lymphocytes 2.0 1.0-5.5 #) [facility] PointeRitoydgUBLYTHWKAC4941-09-02 07:07:00 Test Item Value Reference Range Interpretation Comments Monocytes # (test code 0.7 See_Comment [Aut omated message] The = Monocytes #) system which generated this result tra nsmitted reference range : <=0.8. The reference r boubacar was not used to int erpret this result as normal/abnormal . [facility] PointeGazyouyUDJWHORXCP0703-71-93 07:07:00 Test Item Value Reference Range Interpretation Comments Eosinophils (test code = 2.4 See_Comment [A utomated message] The Eosinophils) system which ge nerated this result tra nsmitted reference range : <=4.0. The reference r boubacar was not used to int erpret this result as normal/abnormal . [facility] PointeSlzmsnpJDISBTXCNR1789-30-56 07:07:00 Test Item Value Reference Range Interpretation Comments Basophils (test code = 0.6 See_Comment [Aut omated message] The Basophils) system which ge nerated this result tra nsmitted reference range : <=1.0. The reference r boubacar was not used to int erpret this result as normal/abnormal . [facility] PointeHybtzneQZTOJXPMQJ8456-35-53 07:07:00 Test Item Value Reference Range Interpretation Comments Segs-Bands # (test code = Segs-Bands #) 4.0 1.5-8.1 [facility] PointeSttssneFNXWJYMLVJ7368-91-83 07:07:00 Test Item Value Reference Range Interpretation Comments Monocytes (test code = Monocytes) 10.4 2.0-12.0 [facility] PointeVfmpgzaKARAXIFXJL2012-76-40 07:07:00 Test Item Value Reference Range Interpretation Comments RBC Morph (test code = Normal (11/17/17 2:07 AM) RBC Morph) [facility] PointeHmtiecrFGZBWEACBC7494-32-87 07:07:00 Test Item Value Reference Range Interpretation Comments Segs (test code = Segs) 58.1 45.0-75.0 [facility] PointeOehjhhuJMLCODYZEF8991-55-37 07:07:00 Test Item Value Reference Range Interpretation Comments Plt Morph (test code = Normal (11/17/17 2:07 AM) Plt Morph) [facility] PointeXbofgbqSJQNTKODJK9101-11-75 07:07:00 Test Item Value Reference Range Interpretation Comments Lymphocytes (test code = Lymphocytes) 28.5 20.0-40.0 [facility]2018-05-06 07:07:00 Test Item Value Reference Range Interpretation Comments Glucose Lvl (test code = Glucose Lvl) 74 70-99 [facility]2018-05-06 07:07:00 Test Item Value Reference Range Interpretation Comments BUN (test code = BUN) 12 7-22 [facility]2018-05-06 07:07:00 Test Item Value Reference Range Interpretation Comments Creatinine Lvl (test code = Creatinine 0.75 0.50-1.40 Lvl) [place] 801258-05-06 07:07:00 Test Item Value Reference Range Interpretation Comments eGFR (test code = eGFR) 140 [facility]2018-05-06 07:07:00 Test Item Value Reference Range Interpretation Comments Albumin Lvl (test code = Albumin Lvl) 2.9 3.5-5.0 [place] 801258-05-06 07:07:00 Test Item Value Reference Range Interpretation Comments Globulin (test code = Globulin) 4.4 2.7-4.2 [place] 801258-05-06 07:07:00 Test Item Value Reference Range Interpretation Comments A/G Ratio (test code = A/G Ratio) 0.7 1 0.7-1.6 [place] 801258-05-06 07:07:00 Test Item Value Reference Range Interpretation Comments Bili Total (test code = Bili Total) 0.4 0.2-1.3 [place] 801258-05-06 07:07:00 Test Item Value Reference Range Interpretation Comments Alk Phos (test code = Alk Phos) 71 39-136 [place] 801258-05-06 07:07:00 Test Item Value Reference Range Interpretation Comments AST (test code = AST) 15 See_Comment [Auto mated message] The system which ge nerated this result transmit lester reference range : <=37. The reference range was not used to interpr et this result as dany l/abnormal. [place] 801258-05-06 07:07:00 Test Item Value Reference Range Interpretation Comments ALT (test code = ALT) 28 See_Comment [Auto mated message] The system which ge nerated this result transmit lester reference range : <=65. The reference range was not used to interpr et this result as dany l/abnormal. [facility]2018-05-06 07:07:00 Test Item Value Reference Range Interpretation Comments Potassium Lvl (test code = Potassium 4.4 3.5-5.1 Lvl) [facility]2018-05-06 07:07:00 Test Item Value Reference Range Interpretation Comments Sodium Lvl (test code = Sodium Lvl) 147 135-145 [facility]2018-05-06 07:07:00 Test Item Value Reference Range Interpretation Comments CO2 (test code = CO2) 25 24-32 [facility]2018-05-06 07:07:00 Test Item Value Reference Range Interpretation Comments Chloride Lvl (test code = Chloride Lvl) 114 95-109 [place] 801258-05-06 07:07:00 Test Item Value Reference Range Interpretation Comments B/C Ratio (test code = B/C Ratio) 16 1 6-25 [facility]2018-05-06 07:07:00 Test Item Value Reference Range Interpretation Comments Calcium Lvl (test code = Calcium Lvl) 8.7 8.5-10.5 [facility]2018-05-06 07:07:00 Test Item Value Reference Range Interpretation Comments AGAP (test code = AGAP) 12.4 10.0-20.0 [facility]2018-05-06 07:07:00 Test Item Value Reference Range Interpretation Comments Total Protein (test code = Total 7.3 6.4-8.4 Protein) [facility] PointeFcbhjneQUFHSLWLWL6185-59-62 07:07:00 Test Item Value Reference Range Interpretation Comments Platelet (test code = Platelet) 345 133-450 [facility] PointeAsrzfrgWZNEYONQBA9414-11-84 07:07:00 Test Item Value Reference Range Interpretation Comments MPV (test code = MPV) 8.7 7.4-10.4 [place] 455988-05-06 07:07:00 Test Item Value Reference Range Interpretation Comments WBC (test code = WBC) 6.9 3.7-10.4 [facility] PointeKpclrfdKHHUFFAZSI3079-07-06 07:07:00 Test Item Value Reference Range Interpretation Comments RBC (test code = RBC) 5.30 4.70-6.10 [facility] PointeSnhsdgnZGCHAXFUIF4217-44-63 07:07:00 Test Item Value Reference Range Interpretation Comments MCHC (test code = MCHC) 32.8 32.0-36.0 [facility] PointeIymbykwRXMXWDMVAD3233-47-72 07:07:00 Test Item Value Reference Range Interpretation Comments MCH (test code = MCH) 27.9 pg 27.0-31.0 [facility] PointeUgbrahuCEBAJDFWQU5905-30-46 07:07:00 Test Item Value Reference Range Interpretation Comments Hgb (test code = Hgb) 14.8 14.0-18.0 [place] 455988-05-06 07:07:00 Test Item Value Reference Range Interpretation Comments MCV (test code = MCV) 85.0 80.0-94.0 [place] 455988-05-06 07:07:00 Test Item Value Reference Range Interpretation Comments Hct (test code = Hct) 45.1 42.0-54.0 [facility] PointeGfomuwwEHHBSJPYTK7536-35-52 07:07:00 Test Item Value Reference Range Interpretation Comments RDW (test code = RDW) 17.5 11.5-14.5 [facility] PointeXpgwlseOMXFOENJPO5703-71-92 07:07:00 Test Item Value Reference Range Interpretation Comments Eosinophils # (test code 0.2 See_Comment [A utomated message] The = Eosinophils #) system whic h generated this result tra nsmitted reference range : <=0.5. The reference r boubacar was not used to int erpret this result as normal/abnormal . [facility] PointeEbqnqhiTLYGFQZMLY3084-85-04 07:07:00 Test Item Value Reference Range Interpretation Comments Lymphocytes # (test code = Lymphocytes 2.0 1.0-5.5 #) [facility] PointeEbebdikWHUFQSHNXZ0679-43-35 07:07:00 Test Item Value Reference Range Interpretation Comments Monocytes # (test code 0.7 See_Comment [Aut omated message] The = Monocytes #) system which generated this result tra nsmitted reference range : <=0.8. The reference r boubacar was not used to int erpret this result as normal/abnormal . [facility] PointeMuizkknIBFSCKJAGF2138-58-87 07:07:00 Test Item Value Reference Range Interpretation Comments Eosinophils (test code = 2.4 See_Comment [A utomated message] The Eosinophils) system which ge nerated this result tra nsmitted reference range : <=4.0. The reference r boubacar was not used to int erpret this result as normal/abnormal . [facility] PointeXhofnizRBKUNOLXUQ0748-79-98 07:07:00 Test Item Value Reference Range Interpretation Comments Basophils (test code = 0.6 See_Comment [Aut omated message] The Basophils) system which ge nerated this result tra nsmitted reference range : <=1.0. The reference r boubacar was not used to int erpret this result as normal/abnormal . [facility] PointeYlxdwuiZGJOHRTIHI4630-40-64 07:07:00 Test Item Value Reference Range Interpretation Comments Segs-Bands # (test code = Segs-Bands #) 4.0 1.5-8.1 [facility] PointeXscqmrtMMXGAZQGZD0581-18-07 07:07:00 Test Item Value Reference Range Interpretation Comments Monocytes (test code = Monocytes) 10.4 2.0-12.0 [facility] PointeCwqrmvpUYNXEBOGEV7593-93-87 07:07:00 Test Item Value Reference Range Interpretation Comments RBC Morph (test code = Normal (11/17/17 2:07 AM) RBC Morph) [facility] PointeBpyonxjYLAJMCQWGZ9473-84-04 07:07:00 Test Item Value Reference Range Interpretation Comments Segs (test code = Segs) 58.1 45.0-75.0 [facility] PointeZkiikmkGGBFIILUBF2998-61-81 07:07:00 Test Item Value Reference Range Interpretation Comments Plt Morph (test code = Normal (11/17/17 2:07 AM) Plt Morph) [facility] PointeOldqvfqBTYSFTLHUP4408-61-94 07:07:00 Test Item Value Reference Range Interpretation Comments Lymphocytes (test code = Lymphocytes) 28.5 20.0-40.0 [facility]2018-05-06 07:07:00 Test Item Value Reference Range Interpretation Comments Glucose Lvl (test code = Glucose Lvl) 74 70-99 [facility]2018-05-06 07:07:00 Test Item Value Reference Range Interpretation Comments BUN (test code = BUN) 12 7-22 [facility]2018-05-06 07:07:00 Test Item Value Reference Range Interpretation Comments Creatinine Lvl (test code = Creatinine 0.75 0.50-1.40 Lvl) [facility]2018-05-06 07:07:00 Test Item Value Reference Range Interpretation Comments eGFR (test code = eGFR) 140 [facility]2018-05-06 07:07:00 Test Item Value Reference Range Interpretation Comments Albumin Lvl (test code = Albumin Lvl) 2.9 3.5-5.0 [facility]2018-05-06 07:07:00 Test Item Value Reference Range Interpretation Comments Globulin (test code = Globulin) 4.4 2.7-4.2 [facility]2018-05-06 07:07:00 Test Item Value Reference Range Interpretation Comments A/G Ratio (test code = A/G Ratio) 0.7 1 0.7-1.6 [facility]2018-05-06 07:07:00 Test Item Value Reference Range Interpretation Comments Bili Total (test code = Bili Total) 0.4 0.2-1.3 [facility]2018-05-06 07:07:00 Test Item Value Reference Range Interpretation Comments Alk Phos (test code = Alk Phos) 71 39-136 [facility]2018-05-06 07:07:00 Test Item Value Reference Range Interpretation Comments AST (test code = AST) 15 See_Comment [Auto mated message] The system which ge nerated this result transmit lester reference range : <=37. The reference range was not used to interpr et this result as dany l/abnormal. [place] 801258-05-06 07:07:00 Test Item Value Reference Range Interpretation Comments ALT (test code = ALT) 28 See_Comment [Auto mated message] The system which ge nerated this result transmit lester reference range : <=65. The reference range was not used to interpr et this result as dany l/abnormal. [place] 801258-05-06 07:07:00 Test Item Value Reference Range Interpretation Comments Potassium Lvl (test code = Potassium 4.4 3.5-5.1 Lvl) [place] 801258-05-06 07:07:00 Test Item Value Reference Range Interpretation Comments Sodium Lvl (test code = Sodium Lvl) 147 135-145 [facility]2018-05-06 07:07:00 Test Item Value Reference Range Interpretation Comments CO2 (test code = CO2) 25 24-32 [facility]2018-05-06 07:07:00 Test Item Value Reference Range Interpretation Comments Chloride Lvl (test code = Chloride Lvl) 114 95-109 [place] 801258-05-06 07:07:00 Test Item Value Reference Range Interpretation Comments B/C Ratio (test code = B/C Ratio) 16 1 6-25 [place] 801258-05-06 07:07:00 Test Item Value Reference Range Interpretation Comments Calcium Lvl (test code = Calcium Lvl) 8.7 8.5-10.5 [place] 801258-05-06 07:07:00 Test Item Value Reference Range Interpretation Comments AGAP (test code = AGAP) 12.4 10.0-20.0 [place] 801258-05-06 07:07:00 Test Item Value Reference Range Interpretation Comments Total Protein (test code = Total 7.3 6.4-8.4 Protein) [facility]BnglrzxIYHNDUWAMY7065-13-62 07:07:00 Test Item Value Reference Range Interpretation Comments Platelet (test code = Platelet) 345 133-450 [place] 455988-05-06 07:07:00 Test Item Value Reference Range Interpretation Comments MPV (test code = MPV) 8.7 7.4-10.4 [facility]inteNxtjqppHZIWPNEECL2297-47-90 07:07:00 Test Item Value Reference Range Interpretation Comments WBC (test code = WBC) 6.9 3.7-10.4 [facility] PointeKqpkrcdKMRPBKRGFY0550-94-37 07:07:00 Test Item Value Reference Range Interpretation Comments RBC (test code = RBC) 5.30 4.70-6.10 [place] [address]-05-06 07:07:00 Test Item Value Reference Range Interpretation Comments MCHC (test code = MCHC) 32.8 32.0-36.0 [facility] PointeLbqwknvTSPJNLVDHZ7775-53-81 07:07:00 Test Item Value Reference Range Interpretation Comments MCH (test code = MCH) 27.9 pg 27.0-31.0 [facility] PointeQykflobWQHGIEDVUW7183-23-89 07:07:00 Test Item Value Reference Range Interpretation Comments Hgb (test code = Hgb) 14.8 14.0-18.0 [place] 455988-05-06 07:07:00 Test Item Value Reference Range Interpretation Comments MCV (test code = MCV) 85.0 80.0-94.0 [facility] PointeYfrotsmDTQOYHBVBT8151-50-37 07:07:00 Test Item Value Reference Range Interpretation Comments Hct (test code = Hct) 45.1 42.0-54.0 [facility] PointeNdllebxABGWCJENCN9934-59-64 07:07:00 Test Item Value Reference Range Interpretation Comments RDW (test code = RDW) 17.5 11.5-14.5 [facility] PointeDbobqnrKTEHYBJYUM7999-72-77 07:07:00 Test Item Value Reference Range Interpretation Comments Eosinophils # (test code 0.2 See_Comment [A utomated message] The = Eosinophils #) system [facility] h generated this result tra nsmitted reference range : <=0.5. The reference r boubacar was not used to int erpret this result as normal/abnormal . [facility] PointeOfymlvkLNKBJWPUIU8071-08-60 07:07:00 Test Item Value Reference Range Interpretation Comments Lymphocytes # (test code = Lymphocytes 2.0 1.0-5.5 #) [facility] PointeKjelnbrVMZTIPEUWL6960-99-20 07:07:00 Test Item Value Reference Range Interpretation Comments Monocytes # (test code 0.7 See_Comment [Aut omated message] The = Monocytes #) system which generated this result tra nsmitted reference range : <=0.8. The reference r boubacar was not used to int erpret this result as normal/abnormal . [facility] PointeCiaqqreDWPTSMEWDO4849-77-98 07:07:00 Test Item Value Reference Range Interpretation Comments Eosinophils (test code = 2.4 See_Comment [A utomated message] The Eosinophils) system which ge nerated this result tra nsmitted reference range : <=4.0. The reference r boubacar was not used to int erpret this result as normal/abnormal . [facility] PointeKjpeiymUEZQDVJRJS1203-55-58 07:07:00 Test Item Value Reference Range Interpretation Comments Basophils (test code = 0.6 See_Comment [Aut omated message] The Basophils) system which ge nerated this result tra nsmitted reference range : <=1.0. The reference r boubacar was not used to int erpret this result as normal/abnormal . [facility] PointeTerhibxRJBHZSRTTQ9323-00-39 07:07:00 Test Item Value Reference Range Interpretation Comments Segs-Bands # (test code = Segs-Bands #) 4.0 1.5-8.1 [facility] PointeZzrbpuyOWOHDVICIK7349-73-07 07:07:00 Test Item Value Reference Range Interpretation Comments Monocytes (test code = Monocytes) 10.4 2.0-12.0 [facility] PointeLmvxeswFZMOIQCBEK8815-37-23 07:07:00 Test Item Value Reference Range Interpretation Comments RBC Morph (test code = Normal (11/17/17 2:07 AM) RBC Morph) [facility] PointeAhwvojmDPKOJJLVHP8473-19-45 07:07:00 Test Item Value Reference Range Interpretation Comments Segs (test code = Segs) 58.1 45.0-75.0 [facility] PointeHzedixwRPLUKNJPSN9097-98-82 07:07:00 Test Item Value Reference Range Interpretation Comments Plt Morph (test code = Normal (11/17/17 2:07 AM) [facility]t Morph) [facility]CLMDXCEXS3351[facility]72-97 07:07:00 Test Item Value Reference Range Interpretation Comments Lymphocytes (test code = Lymphocytes) 28.5 20.0-40.0 [facility]2018-05-06 07:07:00 Test Item Value Reference Range Interpretation Comments Glucose Lvl (test code = Glucose Lvl) 74 70-99 [facility]2018-05-06 07:07:00 Test Item Value Reference Range Interpretation Comments BUN (test code = BUN) 12 7-22 [place] 801258-05-06 07:07:00 Test Item Value Reference Range Interpretation Comments Creatinine Lvl (test code = Creatinine 0.75 0.50-1.40 Lvl) [facility]2018-05-06 07:07:00 Test Item Value Reference Range Interpretation Comments eGFR (test code = eGFR) 140 [facility]2018-05-06 07:07:00 Test Item Value Reference Range Interpretation Comments Albumin Lvl (test code = Albumin Lvl) 2.9 3.5-5.0 [facility]2018-05-06 07:07:00 Test Item Value Reference Range Interpretation Comments Globulin (test code = Globulin) 4.4 2.7-4.2 [facility]2018-05-06 07:07:00 Test Item Value Reference Range Interpretation Comments A/G Ratio (test code = A/G Ratio) 0.7 1 0.7-1.6 [facility]2018-05-06 07:07:00 Test Item Value Reference Range Interpretation Comments Bili Total (test code = Bili Total) 0.4 0.2-1.3 [facility]2018-05-06 07:07:00 Test Item Value Reference Range Interpretation Comments Alk Phos (test code = Alk Phos) 71 39-136 [facility]2018-05-06 07:07:00 Test Item Value Reference Range Interpretation Comments AST (test code = AST) 15 See_Comment [Auto mated message] The system which ge nerated this result transmit lester reference range : <=37. The reference range was not used to interpr et this result as dany l/abnormal. [facility]2018-05-06 07:07:00 Test Item Value Reference Range Interpretation Comments ALT (test code = ALT) 28 See_Comment [Auto mated message] The system which ge nerated this result transmit lester reference range : <=65. The reference range was not used to interpr et this result as dany l/abnormal. [place] [address]258-05-06 07:07:00 Test Item Value Reference Range Interpretation Comments Potassium Lvl (test code = Potassium 4.4 3.5-5.1 Lvl) [facility]2018-05-06 07:07:00 Test Item Value Reference Range Interpretation Comments Sodium Lvl (test code = Sodium Lvl) 147 135-145 [place] 801258-05-06 07:07:00 Test Item Value Reference Range Interpretation Comments CO2 (test code = CO2) 25 24-32 [place] 801258-05-06 07:07:00 Test Item Value Reference Range Interpretation Comments Chloride Lvl (test code = Chloride Lvl) 114 95-109 [place] 801258-05-06 07:07:00 Test Item Value Reference Range Interpretation Comments B/C Ratio (test code = B/C Ratio) 16 1 6-25 [place] 801258-05-06 07:07:00 Test Item Value Reference Range Interpretation Comments Calcium Lvl (test code = Calcium Lvl) 8.7 8.5-10.5 [place] 801258-05-06 07:07:00 Test Item Value Reference Range Interpretation Comments AGAP (test code = AGAP) 12.4 10.0-20.0 [place] 801258-05-06 07:07:00 Test Item Value Reference Range Interpretation Comments Total Protein (test code = Total 7.3 6.4-8.4 Protein) [facility] PointeHwhktlkFDFYAPGSLR7233-79-89 07:07:00 Test Item Value Reference Range Interpretation Comments Platelet (test code = Platelet) 345 133-450 [facility] PointeFpdzfegXYWQTGEVTN2817-02-61 07:07:00 Test Item Value Reference Range Interpretation Comments MPV (test code = MPV) 8.7 7.4-10.4 [place] 455988-05-06 07:07:00 Test Item Value Reference Range Interpretation Comments WBC (test code = WBC) 6.9 3.7-10.4 [facility] PointeQsrapbzVTRUXGSLZV1194-98-02 07:07:00 Test Item Value Reference Range Interpretation Comments RBC (test code = RBC) 5.30 4.70-6.10 [facility] PointeAeiqqzgLOXARPLPEC9181-45-21 07:07:00 Test Item Value Reference Range Interpretation Comments MCHC (test code = MCHC) 32.8 32.0-36.0 [facility] PointeKvetfdsISJAFOEFNA4653-38-24 07:07:00 Test Item Value Reference Range Interpretation Comments MCH (test code = MCH) 27.9 pg 27.0-31.0 [facility] PointeLhwyelgSFWSYMTDCB9127-35-75 07:07:00 Test Item Value Reference Range Interpretation Comments Hgb (test code = Hgb) 14.8 14.0-18.0 [facility] PointeNnwcfraIEQZZEWHBT7222-04-48 07:07:00 Test Item Value Reference Range Interpretation Comments MCV (test code = MCV) 85.0 80.0-94.0 [facility] PointeXmfsafhLZCGDJDOLJ3180-28-41 07:07:00 Test Item Value Reference Range Interpretation Comments Hct (test code = Hct) 45.1 42.0-54.0 [facility] PointeWabjoxrXXADAWCWOP3008-50-75 07:07:00 Test Item Value Reference Range Interpretation Comments RDW (test code = RDW) 17.5 11.5-14.5 [facility] PointeNtkvzxyKFMFPHOMIP1066-36-62 07:07:00 Test Item Value Reference Range Interpretation Comments Eosinophils # (test code 0.2 See_Comment [A utomated message] The = Eosinophils #) system whic h generated this result tra nsmitted reference range : <=0.5. The reference r boubacar was not used to int erpret this result as normal/abnormal . [facility] PointeInqenzeHWQHPUPVMF3899-97-50 07:07:00 Test Item Value Reference Range Interpretation Comments Lymphocytes # (test code = Lymphocytes 2.0 1.0-5.5 #) [facility] PointeQrenjroDLDWESUXOI9451-13-20 07:07:00 Test Item Value Reference Range Interpretation Comments Monocytes # (test code 0.7 See_Comment [Aut omated message] The = Monocytes #) system which generated this result tra nsmitted reference range : <=0.8. The reference r boubacar was not used to int erpret this result as normal/abnormal . [facility] PointeEuxdttlWKFGSDAULH8753-37-33 07:07:00 Test Item Value Reference Range Interpretation Comments Eosinophils (test code = 2.4 See_Comment [A utomated message] The Eosinophils) system which ge nerated this result tra nsmitted reference range : <=4.0. The reference r boubacar was not used to int erpret this result as normal/abnormal . [facility] PointeHcdfmecXVDGCKASLG8356-34-71 07:07:00 Test Item Value Reference Range Interpretation Comments Basophils (test code = 0.6 See_Comment [Aut omated message] The Basophils) system which ge nerated this result tra nsmitted reference range : <=1.0. The reference r boubacar was not used to int erpret this result as normal/abnormal . [facility] PointeYhzkovvAGTITWCMYX9619-03-67 07:07:00 Test Item Value Reference Range Interpretation Comments Segs-Bands # (test code = Segs-Bands #) 4.0 1.5-8.1 [facility] PointeRfbmhndDXKSXEJFCW8631-36-14 07:07:00 Test Item Value Reference Range Interpretation Comments Monocytes (test code = Monocytes) 10.4 2.0-12.0 [facility] PointeBpurazkADIWVBLSDK0835-14-16 07:07:00 Test Item Value Reference Range Interpretation Comments RBC Morph (test code = Normal (11/17/17 2:07 AM) RBC Morph) [facility] PointeVxcbnzgUMXOKSCCKQ2051-20-63 07:07:00 Test Item Value Reference Range Interpretation Comments Segs (test code = Segs) 58.1 45.0-75.0 [facility] PointeCxmetqaCWWMJJJGMH9431-94-64 07:07:00 Test Item Value Reference Range Interpretation Comments Plt Morph (test code = Normal (11/17/17 2:07 AM) Plt Morph) [facility] PointeKvmxwosDMXSZBZSPF4728-01-94 07:07:00 Test Item Value Reference Range Interpretation Comments Lymphocytes (test code = Lymphocytes) 28.5 20.0-40.0 [facility]2018-05-06 07:07:00 Test Item Value Reference Range Interpretation Comments Glucose Lvl (test code = Glucose Lvl) 74 70-99 [facility]2018-05-06 07:07:00 Test Item Value Reference Range Interpretation Comments BUN (test code = BUN) 12 7-22 [facility]2018-05-06 07:07:00 Test Item Value Reference Range Interpretation Comments Creatinine Lvl (test code = Creatinine 0.75 0.50-1.40 Lvl) [place] [address]258-05-06 07:07:00 Test Item Value Reference Range Interpretation Comments eGFR (test code = eGFR) 140 [place] 801258-05-06 07:07:00 Test Item Value Reference Range Interpretation Comments Albumin Lvl (test code = Albumin Lvl) 2.9 3.5-5.0 [place] [address]258-05-06 07:07:00 Test Item Value Reference Range Interpretation Comments Globulin (test code = Globulin) 4.4 2.7-4.2 [place] [address]-05-06 07:07:00 Test Item Value Reference Range Interpretation Comments A/G Ratio (test code = A/G Ratio) 0.7 1 0.7-1.6 [place] [address]-05-06 07:07:00 Test Item Value Reference Range Interpretation Comments Bili Total (test code = Bili Total) 0.4 0.2-1.3 [place] [address]258-05-06 07:07:00 Test Item Value Reference Range Interpretation Comments Alk Phos (test code = Alk Phos) 71 39-136 [place] 801258-05-06 07:07:00 Test Item Value Reference Range Interpretation Comments AST (test code = AST) 15 See_Comment [Auto mated message] The system which ge nerated this result transmit lester reference range : <=37. The reference range was not used to interpr et this result as dany l/abnormal. [place] [address]258-05-06 07:07:00 Test Item Value Reference Range Interpretation Comments ALT (test code = ALT) 28 See_Comment [Auto mated message] The system which ge nerated this result transmit lester reference range : <=65. The reference range was not used to interpr et this result as dany l/abnormal. [place] [address]258-05-06 07:07:00 Test Item Value Reference Range Interpretation Comments Potassium Lvl (test code = Potassium 4.4 3.5-5.1 Lvl) [place] [address]258-05-06 07:07:00 Test Item Value Reference Range Interpretation Comments Sodium Lvl (test code = Sodium Lvl) 147 135-145 [facility]2018-05-06 07:07:00 Test Item Value Reference Range Interpretation Comments CO2 (test code = CO2) 25 24-32 [facility]2018-05-06 07:07:00 Test Item Value Reference Range Interpretation Comments Chloride Lvl (test code = Chloride Lvl) 114 95-109 [facility]2018-05-06 07:07:00 Test Item Value Reference Range Interpretation Comments B/C Ratio (test code = B/C Ratio) 16 1 6-25 [facility]2018-05-06 07:07:00 Test Item Value Reference Range Interpretation Comments Calcium Lvl (test code = Calcium Lvl) 8.7 8.5-10.5 [facility]2018-05-06 07:07:00 Test Item Value Reference Range Interpretation Comments AGAP (test code = AGAP) 12.4 10.0-20.0 [facility]2018-05-06 07:07:00 Test Item Value Reference Range Interpretation Comments Total Protein (test code = Total 7.3 6.4-8.4 Protein) [facility] PointeWffebdhDLSETZKYZV8484-25-54 07:07:00 Test Item Value Reference Range Interpretation Comments Platelet (test code = Platelet) 345 133-450 [facility] PointeMjkujfdREVGIXEHCY8354-77-68 07:07:00 Test Item Value Reference Range Interpretation Comments MPV (test code = MPV) 8.7 7.4-10.4 [facility] PointeMcdeeaiTAWNLUCFYB5868-07-40 07:07:00 Test Item Value Reference Range Interpretation Comments WBC (test code = WBC) 6.9 3.7-10.4 [facility] PointeYauwkrrXCLSRDAFMK6394-64-58 07:07:00 Test Item Value Reference Range Interpretation Comments RBC (test code = RBC) 5.30 4.70-6.10 [facility] PointeLrqyntbIIADRGWMQS5769-49-48 07:07:00 Test Item Value Reference Range Interpretation Comments MCHC (test code = MCHC) 32.8 32.0-36.0 [facility] PointeEukbgksWRIECHZSXC2578-90-86 07:07:00 Test Item Value Reference Range Interpretation Comments MCH (test code = MCH) 27.9 pg 27.0-31.0 [facility] PointeQbpbaqvARHRXHWWCF6807-05-07 07:07:00 Test Item Value Reference Range Interpretation Comments Hgb (test code = Hgb) 14.8 14.0-18.0 [facility] PointeCgopiwmMBWEALLWPX8124-09-78 07:07:00 Test Item Value Reference Range Interpretation Comments MCV (test code = MCV) 85.0 80.0-94.0 [facility] PointeIuxpuaoTACOZYKXUU9578-29-41 07:07:00 Test Item Value Reference Range Interpretation Comments Hct (test code = Hct) 45.1 42.0-54.0 [facility] PointeIswbcsoCRSNHBRDCD4166-62-33 07:07:00 Test Item Value Reference Range Interpretation Comments RDW (test code = RDW) 17.5 11.5-14.5 [facility] PointeWkxquuyPKNTUKQSAE8371-17-75 07:07:00 Test Item Value Reference Range Interpretation Comments Eosinophils # (test code 0.2 See_Comment [A utomated message] The = Eosinophils #) system whic h generated this result tra nsmitted reference range : <=0.5. The reference r boubacar was not used to int erpret this result as normal/abnormal . [facility] PointeNnxnunhRCXIXMYKNP5326-15-88 07:07:00 Test Item Value Reference Range Interpretation Comments Lymphocytes # (test code = Lymphocytes 2.0 1.0-5.5 #) [facility] PointeDdqmiltXMWNHMZICM9187-15-06 07:07:00 Test Item Value Reference Range Interpretation Comments Monocytes # (test code 0.7 See_Comment [Aut omated message] The = Monocytes #) system which generated this result tra nsmitted reference range : <=0.8. The reference r boubacar was not used to int erpret this result as normal/abnormal . [facility] PointeQpnnekdXGUBMIGWIW1696-23-25 07:07:00 Test Item Value Reference Range Interpretation Comments Eosinophils (test code = 2.4 See_Comment [A utomated message] The Eosinophils) system which ge nerated this result tra nsmitted reference range : <=4.0. The reference r boubacar was not used to int erpret this result as normal/abnormal . [place] [address]-05-06 07:07:00 Test Item Value Reference Range Interpretation Comments Basophils (test code = 0.6 See_Comment [Aut omated message] The Basophils) system which ge nerated this result tra nsmitted reference range : <=1.0. The reference r boubacar was not used to int erpret this result as normal/abnormal . [facility] PointeUlzumxbLBPVZSNOSW4730-99-62 07:07:00 Test Item Value Reference Range Interpretation Comments Segs-Bands # (test code = Segs-Bands #) 4.0 1.5-8.1 [facility] PointeReoxdpnYVQAUIDQGU6333-18-13 07:07:00 Test Item Value Reference Range Interpretation Comments Monocytes (test code = Monocytes) 10.4 2.0-12.0 [facility] PointeFcdutxtFRNSLZOWMQ3102-35-86 07:07:00 Test Item Value Reference Range Interpretation Comments RBC Morph (test code = Normal (11/17/17 2:07 AM) RBC Morph) [facility] PointeHlxiahwEUBMEMDDVI9831-71-83 07:07:00 Test Item Value Reference Range Interpretation Comments Segs (test code = Segs) 58.1 45.0-75.0 [facility] PointeZrlmavjPSNUINQVVS9554-60-21 07:07:00 Test Item Value Reference Range Interpretation Comments Plt Morph (test code = Normal (11/17/17 2:07 AM) Plt Morph) [facility] PointeTvdmxlkOXIJPFFRSR8335-60-26 07:07:00 Test Item Value Reference Range Interpretation Comments Lymphocytes (test code = Lymphocytes) 28.5 20.0-40.0 [facility]2018-05-06 07:07:00 Test Item Value Reference Range Interpretation Comments Glucose Lvl (test code = Glucose Lvl) 74 70-99 [facility]2018-05-06 07:07:00 Test Item Value Reference Range Interpretation Comments BUN (test code = BUN) 12 7-22 [facility]2018-05-06 07:07:00 Test Item Value Reference Range Interpretation Comments Creatinine Lvl (test code = Creatinine 0.75 0.50-1.40 Lvl) [facility]2018-05-06 07:07:00 Test Item Value Reference Range Interpretation Comments eGFR (test code = eGFR) 140 [facility]2018-05-06 07:07:00 Test Item Value Reference Range Interpretation Comments Albumin Lvl (test code = Albumin Lvl) 2.9 3.5-5.0 [facility]2018-05-06 07:07:00 Test Item Value Reference Range Interpretation Comments Globulin (test code = Globulin) 4.4 2.7-4.2 [facility]2018-05-06 07:07:00 Test Item Value Reference Range Interpretation Comments A/G Ratio (test code = A/G Ratio) 0.7 1 0.7-1.6 [place] [address]258-05-06 07:07:00 Test Item Value Reference Range Interpretation Comments Bili Total (test code = Bili Total) 0.4 0.2-1.3 [place] 801258-05-06 07:07:00 Test Item Value Reference Range Interpretation Comments Alk Phos (test code = Alk Phos) 71 39-136 [place] 801258-05-06 07:07:00 Test Item Value Reference Range Interpretation Comments AST (test code = AST) 15 See_Comment [Auto mated message] The system which ge nerated this result transmit lester reference range : <=37. The reference range was not used to interpr et this result as dany l/abnormal. [facility]2018-05-06 07:07:00 Test Item Value Reference Range Interpretation Comments ALT (test code = ALT) 28 See_Comment [Auto mated message] The system which ge nerated this result transmit lester reference range : <=65. The reference range was not used to interpr et this result as dany l/abnormal. [facility]2018-05-06 07:07:00 Test Item Value Reference Range Interpretation Comments Potassium Lvl (test code = Potassium 4.4 3.5-5.1 Lvl) [facility]2018-05-06 07:07:00 Test Item Value Reference Range Interpretation Comments Sodium Lvl (test code = Sodium Lvl) 147 135-145 [place] [address]258-05-06 07:07:00 Test Item Value Reference Range Interpretation Comments CO2 (test code = CO2) 25 24-32 [facility]2018-05-06 07:07:00 Test Item Value Reference Range Interpretation Comments Chloride Lvl (test code = Chloride Lvl) 114 95-109 [place] 801258-05-06 07:07:00 Test Item Value Reference Range Interpretation Comments B/C Ratio (test code = B/C Ratio) 16 1 6-25 [place] [address]258-05-06 07:07:00 Test Item Value Reference Range Interpretation Comments Calcium Lvl (test code = Calcium Lvl) 8.7 8.5-10.5 [facility] [id number] 07:07:00 Test Item Value Reference Range Interpretation Comments AGAP (test code = AGAP) 12.4 10.0-20.0 [facility] [id number] 07:07:00 Test Item Value Reference Range Interpretation Comments Total Protein (test code = Total 7.3 6.4-8.4 Protein) [facility]inteUtpptqjZZUISTAETH2156-12-10 07:07:00 Test Item Value Reference Range Interpretation Comments Platelet (test code = Platelet) 345 133-450 [facility] PointeXrvniitHFQMOWQTFK0910-77-24 07:07:00 Test Item Value Reference Range Interpretation Comments MPV (test code = MPV) 8.7 7.4-10.4 [facility] PointeInovccoWUYFICURDT0750-08-83 07:07:00 Test Item Value Reference Range Interpretation Comments WBC (test code = WBC) 6.9 3.7-10.4 [facility] PointeWdalhhuPDSCTVZMOZ8091-35-61 07:07:00 Test Item Value Reference Range Interpretation Comments RBC (test code = RBC) 5.30 4.70-6.10 [facility] PointeIaiemdgMJRDDLZXGQ4823-57-94 07:07:00 Test Item Value Reference Range Interpretation Comments MCHC (test code = MCHC) 32.8 32.0-36.0 [facility] PointePckldypTICYXJBLSK2156-01-73 07:07:00 Test Item Value Reference Range Interpretation Comments MCH (test code = MCH) 27.9 pg 27.0-31.0 [facility] PointeJfqyvfsXJBAPYJNFL1164-55-81 07:07:00 Test Item Value Reference Range Interpretation Comments Hgb (test code = Hgb) 14.8 14.0-18.0 [facility] PointePrmhxaaADXXIBSUYK8899-20-75 07:07:00 Test Item Value Reference Range Interpretation Comments MCV (test code = MCV) 85.0 80.0-94.0 [facility] PointeBqroafjWMEKLZPFPW0857-64-14 07:07:00 Test Item Value Reference Range Interpretation Comments Hct (test code = Hct) 45.1 42.0-54.0 [facility] PointeVakjkkzPZZEOLHDBG4871-25-84 07:07:00 Test Item Value Reference Range Interpretation Comments RDW (test code = RDW) 17.5 11.5-14.5 [facility] PointeNkfjjxwDJEPSXHIGW4236-51-42 07:07:00 Test Item Value Reference Range Interpretation Comments Eosinophils # (test code 0.2 See_Comment [A utomated message] The = Eosinophils #) system whic h generated this result tra nsmitted reference range : <=0.5. The reference r boubacar was not used to int erpret this result as normal/abnormal . [facility] PointeVbmvfzaEXGEMWTCSY6978-03-52 07:07:00 Test Item Value Reference Range Interpretation Comments Lymphocytes # (test code = Lymphocytes 2.0 1.0-5.5 #) [facility] PointeTkxydgpYFNMHQLCLY5898-10-35 07:07:00 Test Item Value Reference Range Interpretation Comments Monocytes # (test code 0.7 See_Comment [Aut omated message] The = Monocytes #) system which generated this result tra nsmitted reference range : <=0.8. The reference r boubacar was not used to int erpret this result as normal/abnormal . [facility] PointeTumualoJQGGUQLDVD9794-24-25 07:07:00 Test Item Value Reference Range Interpretation Comments Eosinophils (test code = 2.4 See_Comment [A utomated message] The Eosinophils) system which ge nerated this result tra nsmitted reference range : <=4.0. The reference r boubacar was not used to int erpret this result as normal/abnormal . [facility] PointeQjfchnsWUSQDQXHFE0909-92-76 07:07:00 Test Item Value Reference Range Interpretation Comments Basophils (test code = 0.6 See_Comment [Aut omated message] The Basophils) system which ge nerated this result tra nsmitted reference range : <=1.0. The reference r boubacar was not used to int erpret this result as normal/abnormal . [facility] PointeJjuyhwsUTPICBMWXC8710-16-81 07:07:00 Test Item Value Reference Range Interpretation Comments Segs-Bands # (test code = Segs-Bands #) 4.0 1.5-8.1 [facility] PointeVipmgreCFTWJDQWPI3607-22-47 07:07:00 Test Item Value Reference Range Interpretation Comments Monocytes (test code = Monocytes) 10.4 2.0-12.0 [facility] PointeNlxswdwZNNAZGIORV6293-26-37 07:07:00 Test Item Value Reference Range Interpretation Comments RBC Morph (test code = Normal (11/17/17 2:07 AM) RBC Morph) [facility] PointeQotqwfoCDZRHGZSHS4839-96-50 07:07:00 Test Item Value Reference Range Interpretation Comments Segs (test code = Segs) 58.1 45.0-75.0 [facility] PointeNkmaxzlLRVHUVCSVB7227-48-56 07:07:00 Test Item Value Reference Range Interpretation Comments Plt Morph (test code = Normal (11/17/17 2:07 AM) Plt Morph) [facility] PointeJgjkqcqLWPCHPWZGA8745-94-22 07:07:00 Test Item Value Reference Range Interpretation Comments Lymphocytes (test code = Lymphocytes) 28.5 20.0-40.0 [facility]2018-05-06 07:07:00 Test Item Value Reference Range Interpretation Comments Glucose Lvl (test code = Glucose Lvl) 74 70-99 [facility]2018-05-06 07:07:00 Test Item Value Reference Range Interpretation Comments BUN (test code = BUN) 12 7-22 [facility]2018-05-06 07:07:00 Test Item Value Reference Range Interpretation Comments Creatinine Lvl (test code = Creatinine 0.75 0.50-1.40 Lvl) [facility]2018-05-06 07:07:00 Test Item Value Reference Range Interpretation Comments eGFR (test code = eGFR) 140 [facility]2018-05-06 07:07:00 Test Item Value Reference Range Interpretation Comments Albumin Lvl (test code = Albumin Lvl) 2.9 3.5-5.0 [facility]2018-05-06 07:07:00 Test Item Value Reference Range Interpretation Comments Globulin (test code = Globulin) 4.4 2.7-4.2 [place] 801258-05-06 07:07:00 Test Item Value Reference Range Interpretation Comments A/G Ratio (test code = A/G Ratio) 0.7 1 0.7-1.6 [facility]2018-05-06 07:07:00 Test Item Value Reference Range Interpretation Comments Bili Total (test code = Bili Total) 0.4 0.2-1.3 [facility]2018-05-06 07:07:00 Test Item Value Reference Range Interpretation Comments Alk Phos (test code = Alk Phos) 71 39-136 [facility]2018-05-06 07:07:00 Test Item Value Reference Range Interpretation Comments AST (test code = AST) 15 See_Comment [Auto mated message] The system which ge nerated this result transmit lester reference range : <=37. The reference range was not used to interpr et this result as dany l/abnormal. [place] 801258-05-06 07:07:00 Test Item Value Reference Range Interpretation Comments ALT (test code = ALT) 28 See_Comment [Auto mated message] The system which ge nerated this result transmit lester reference range : <=65. The reference range was not used to interpr et this result as dany l/abnormal. [facility]2018-05-06 07:07:00 Test Item Value Reference Range Interpretation Comments Potassium Lvl (test code = Potassium 4.4 3.5-5.1 Lvl) [facility]2018-05-06 07:07:00 Test Item Value Reference Range Interpretation Comments Sodium Lvl (test code = Sodium Lvl) 147 135-145 [place] 801258-05-06 07:07:00 Test Item Value Reference Range Interpretation Comments CO2 (test code = CO2) 25 24-32 [facility]2018-05-06 07:07:00 Test Item Value Reference Range Interpretation Comments Chloride Lvl (test code = Chloride Lvl) 114 95-109 [facility]2018-05-06 07:07:00 Test Item Value Reference Range Interpretation Comments B/C Ratio (test code = B/C Ratio) 16 1 6-25 [place] 801258-05-06 07:07:00 Test Item Value Reference Range Interpretation Comments Calcium Lvl (test code = Calcium Lvl) 8.7 8.5-10.5 [place] 801258-05-06 07:07:00 Test Item Value Reference Range Interpretation Comments AGAP (test code = AGAP) 12.4 10.0-20.0 [place] 801258-05-06 07:07:00 Test Item Value Reference Range Interpretation Comments Total Protein (test code = Total 7.3 6.4-8.4 Protein) [facility]inteTtykqacYLWTOGJUNZ3197-19-44 07:07:00 Test Item Value Reference Range Interpretation Comments Platelet (test code = Platelet) 345 133-450 [facility] PointePsspuuqAEXMGHURQA2577-84-00 07:07:00 Test Item Value Reference Range Interpretation Comments MPV (test code = MPV) 8.7 7.4-10.4 [facility] PointeZvimeniOSZUYUDLPS1239-00-79 07:07:00 Test Item Value Reference Range Interpretation Comments WBC (test code = WBC) 6.9 3.7-10.4 [facility] PointeGtjcyhfLLRPDXHUDS4052-34-09 07:07:00 Test Item Value Reference Range Interpretation Comments RBC (test code = RBC) 5.30 4.70-6.10 [facility] PointeVnjagnzXUFDXMSYXE2844-24-11 07:07:00 Test Item Value Reference Range Interpretation Comments MCHC (test code = MCHC) 32.8 32.0-36.0 [facility] PointeTazntfqYTCRDZMSBZ6477-00-84 07:07:00 Test Item Value Reference Range Interpretation Comments MCH (test code = MCH) 27.9 pg 27.0-31.0 [facility] PointeRyeggbqEOHPGTYJBP5409-59-75 07:07:00 Test Item Value Reference Range Interpretation Comments Hgb (test code = Hgb) 14.8 14.0-18.0 [facility]inteXmuvjmfGYRVYZRFCE3691-65-36 07:07:00 Test Item Value Reference Range Interpretation Comments MCV (test code = MCV) 85.0 80.0-94.0 [facility] PointeZajbcbpZPSGLKDBIP1217-38-81 07:07:00 Test Item Value Reference Range Interpretation Comments Hct (test code = Hct) 45.1 42.0-54.0 [facility] PointeWraprqbLBIJCJOYVB5198-85-57 07:07:00 Test Item Value Reference Range Interpretation Comments RDW (test code = RDW) 17.5 11.5-14.5 [facility] PointeGdjgcocAISTKFTTRI9080-77-23 07:07:00 Test Item Value Reference Range Interpretation Comments Eosinophils # (test code 0.2 See_Comment [A utomated message] The = Eosinophils #) system whic h generated this result tra nsmitted reference range : <=0.5. The reference r boubacar was not used to int erpret this result as normal/abnormal . [facility] PointeDgxjuiaWLVSPJGWXP0221-51-65 07:07:00 Test Item Value Reference Range Interpretation Comments Lymphocytes # (test code = Lymphocytes 2.0 1.0-5.5 #) [facility] PointeZjjchepRBUCVCBUAE0787-10-76 07:07:00 Test Item Value Reference Range Interpretation Comments Monocytes # (test code 0.7 See_Comment [Aut omated message] The = Monocytes #) system which generated this result tra nsmitted reference range : <=0.8. The reference r boubacar was not used to int erpret this result as normal/abnormal . [facility] PointeIewgmkhDAJBDGLVLT8785-46-93 07:07:00 Test Item Value Reference Range Interpretation Comments Eosinophils (test code = 2.4 See_Comment [A utomated message] The Eosinophils) system which ge nerated this result tra nsmitted reference range : <=4.0. The reference r boubacar was not used to int erpret this result as normal/abnormal . [facility] PointeEdoumefQCAXITRLGB9470-23-00 07:07:00 Test Item Value Reference Range Interpretation Comments Basophils (test code = 0.6 See_Comment [Aut omated message] The Basophils) system which ge nerated this result tra nsmitted reference range : <=1.0. The reference r boubacar was not used to int erpret this result as normal/abnormal . [facility] PointeZfswwqhVTWUEGDWWQ8604-65-28 07:07:00 Test Item Value Reference Range Interpretation Comments Segs-Bands # (test code = Segs-Bands #) 4.0 1.5-8.1 [facility]inteEioxgebDPXTBAUQEQ0427-90-36 07:07:00 Test Item Value Reference Range Interpretation Comments Monocytes (test code = Monocytes) 10.4 2.0-12.0 [facility] PointeVcjypdyXEGAUZXBPG6270-50-94 07:07:00 Test Item Value Reference Range Interpretation Comments RBC Morph (test code = Normal (11/17/17 2:07 AM) RBC Morph) [facility] PointeAcuzryjUFBQSNPUUF6727-99-80 07:07:00 Test Item Value Reference Range Interpretation Comments Segs (test code = Segs) 58.1 45.0-75.0 [facility] PointeJrgigtrKWBVQWAKYO1994-72-65 07:07:00 Test Item Value Reference Range Interpretation Comments Plt Morph (test code = Normal (11/17/17 2:07 AM) Plt Morph) [facility] PointeGgibckcGOSKOGAWVN1880-29-39 07:07:00 Test Item Value Reference Range Interpretation Comments Lymphocytes (test code = Lymphocytes) 28.5 20.0-40.0 [facility] PointeTfpatbpHPDYMZFXPZ7005-49-21 16:07:00 Test Item Value Reference Range Interpretation Comments Basophils # (test code 0.1 See_Comment [Aut omated message] The = Basophils #) system which generated this result tra nsmitted reference range : <=0.2. The reference r boubacar was not used to int erpret this result as normal/abnormal . [facility]inteQbenzzjIWIOEYVFWI0926-56-25 16:07:00 Test Item Value Reference Range Interpretation Comments Polychrom (test code = Moderate *ABN*(11/16/17 Polychrom) 11:07 AM) [facility] PointeDkwsmsaFOWIPFNFVI6682-86-73 16:07:00 Test Item Value Reference Range Interpretation Comments Basophils # (test code 0.1 See_Comment [Aut omated message] The = Basophils #) system which generated this result tra nsmitted reference range : <=0.2. The reference r boubacar was not used to int erpret this result as normal/abnormal . [facility] PointeOszgdtoVCXZJIFENS4723-66-35 16:07:00 Test Item Value Reference Range Interpretation Comments Polychrom (test code = Moderate *ABN*(11/16/17 Polychrom) 11:07 AM) [facility] PointeQymazpjQKTWFJVWHC0617-21-29 16:07:00 Test Item Value Reference Range Interpretation Comments Basophils # (test code 0.1 See_Comment [Aut omated message] The = Basophils #) system which generated this result tra nsmitted reference range : <=0.2. The reference r boubacar was not used to int erpret this result as normal/abnormal . [facility] PointeNajilrvCBLGUJKIPM9677-01-61 16:07:00 Test Item Value Reference Range Interpretation Comments Polychrom (test code = Moderate *ABN*(11/16/17 Polychrom) 11:07 AM) [facility] PointeVuqvidjBPHSRMFANR4326-92-75 16:07:00 Test Item Value Reference Range Interpretation Comments Basophils # (test code 0.1 See_Comment [Aut omated message] The = Basophils #) system which generated this result tra nsmitted reference range : <=0.2. The reference r boubacar was not used to int erpret this result as normal/abnormal . [facility] PointeArfvakdNNQHPQKCAJ3547-31-75 16:07:00 Test Item Value Reference Range Interpretation Comments Polychrom (test code = Moderate *ABN*(11/16/17 Polychrom) 11:07 AM) [facility] PointeOezxheaKFRJVTCKAR8823-12-02 16:07:00 Test Item Value Reference Range Interpretation Comments Basophils # (test code 0.1 See_Comment [Aut omated message] The = Basophils #) system which generated this result tra nsmitted reference range : <=0.2. The reference r boubacar was not used to int erpret this result as normal/abnormal . [facility] PointeVqhscrhZYVKNHHORS0051-30-41 16:07:00 Test Item Value Reference Range Interpretation Comments Polychrom (test code = Moderate *ABN*(11/16/17 Polychrom) 11:07 AM) [facility] PointeTuetnrpGSUEHYEGXQ5046-71-63 16:07:00 Test Item Value Reference Range Interpretation Comments Basophils # (test code 0.1 See_Comment [Aut omated message] The = Basophils #) system which generated this result tra nsmitted reference range : <=0.2. The reference r boubacar was not used to int erpret this result as normal/abnormal . [facility] PointeFsqrzwqIDVZHTNYIQ3481-50-06 16:07:00 Test Item Value Reference Range Interpretation Comments Polychrom (test code = Moderate *ABN*(11/16/17 Polychrom) 11:07 AM) [facility] PointeCedmryoZDTAAGENLF6908-44-94 16:07:00 Test Item Value Reference Range Interpretation Comments Basophils # (test code 0.1 See_Comment [Aut omated message] The = Basophils #) system which generated this result tra nsmitted reference range : <=0.2. The reference r boubacar was not used to int erpret this result as normal/abnormal . [facility] PointeDkptblmMJEMBDZAAC7172-53-97 16:07:00 Test Item Value Reference Range Interpretation Comments Polychrom (test code = Moderate *ABN*(11/16/17 Polychrom) 11:07 AM) [facility] PointeYkwtoohJTBFQGMIAV6756-25-64 16:07:00 Test Item Value Reference Range Interpretation Comments Basophils # (test code 0.1 See_Comment [Aut omated message] The = Basophils #) system which generated this result tra nsmitted reference range : <=0.2. The reference r boubacar was not used to int erpret this result as normal/abnormal . [facility] PointeSzflwdeVKABDHRGIV2668-31-69 16:07:00 Test Item Value Reference Range Interpretation Comments Polychrom (test code = Moderate *ABN*(11/16/17 Polychrom) 11:07 AM) [facility] IdfdsefILCSUSDYJM5820-65-45 06:43:00 Test Item Value Reference Range Interpretation Comments Vanco Tr TND (test code = Vanco Tr TND) * [facility] AimlgifMHIKOKGQVJ4528-86-10 06:43:00 Test Item Value Reference Range Interpretation Comments Vanco Tr (test code = Vanco Tr) 22.3 [facility] IwhxfyoPLMEPJTRFK7037-51-61 06:43:00 Test Item Value Reference Range Interpretation Comments Vanco Tr TND (test code = Vanco Tr TND) * [facility] VytypfnNVQGWMHCBH6551-55-78 06:43:00 Test Item Value Reference Range Interpretation Comments Vanco Tr (test code = Vanco Tr) 22.3 [facility] CkhlultAJVMKFBDAI7545-09-48 06:43:00 Test Item Value Reference Range Interpretation Comments Vanco Tr TND (test code = Vanco Tr TND) * [facility] YlrkfdaHIRFQTKPGO2196-41-32 06:43:00 Test Item Value Reference Range Interpretation Comments Vanco Tr (test code = Vanco Tr) 22.3 [facility] DjluabaZFZKLIKWMQ8782-30-72 06:43:00 Test Item Value Reference Range Interpretation Comments Vanco Tr TND (test code = Vanco Tr TND) * [facility] NbvifjmTUVFFGROCA7429-41-06 06:43:00 Test Item Value Reference Range Interpretation Comments Vanco Tr (test code = Vanco Tr) 22.3 [facility] XmeguayDIHFEXCRUE0712-69-03 06:43:00 Test Item Value Reference Range Interpretation Comments Vanco Tr TND (test code = Vanco Tr TND) * AkjpjywOPQJXUBMDV8828-11-32 06:43:00 Test Item Value Reference Range Interpretation Comments Vanco Tr (test code = Vanco Tr) 22.3 [facility] XtabfnvGEMQATCMPM4941-99-75 06:43:00 Test Item Value Reference Range Interpretation Comments Vanco Tr TND (test code = Vanco Tr TND) * [facility] EyjdxveYFQQJXDBOF8973-96-13 06:43:00 Test Item Value Reference Range Interpretation Comments Vanco Tr (test code = Vanco Tr) 22.3 [facility] ZodcagsXJZFZSXAVI0123-12-22 06:43:00 Test Item Value Reference Range Interpretation Comments Vanco Tr TND (test code = Vanco Tr TND) * [facility] EbmwqflIRUWOYBHXR5598-37-57 06:43:00 Test Item Value Reference Range Interpretation Comments Vanco Tr (test code = Vanco Tr) 22.3 [facility]CibdcbsHCUMPGQJNQ3371-28-90 06:43:00 Test Item Value Reference Range Interpretation Comments Vanco Tr TND (test code = Vanco Tr TND) * [facility] RenaissanceRapuaicYVMDJHZDXU2720-21-73 06:43:00 Test Item Value Reference Range Interpretation Comments Vanco Tr (test code = Vanco Tr) 22.3 [facility]2018-05-04 11:45:00 Test Item Value Reference Range Interpretation Comments Magnesium Lvl (test code = Magnesium 2.3 1.8-2.4 Lvl) [facility] HEHZS8590-36-52 11:45:00 Test Item Value Reference Range Interpretation Comments Phosphorus (test code = Phosphorus) 3.5 2.5-4.5 [facility] HospitalEjrqawkGTIEDFSAVQ8713-59-48 11:45:00 Test Item Value Reference Range Interpretation Comments PT (test code = PT) 14.0 s 12.0-14.7 [facility]EzvvazaOQMROXITGS7518-15-62 11:45:00 Test Item Value Reference Range Interpretation Comments PTT (test code = PTT) 37.6 s 22.9-35.8 [facility] HospitalAsgffhwJCENJVQAEU8308-01-77 11:45:00 Test Item Value Reference Range Interpretation Comments INR (test code = INR) 1.08 1 0.85-1.17 [facility] RenaissanceJgkystkIIGVNSKTEN1546-31-27 11:45:00 Test Item Value Reference Range Interpretation Comments C-REACTIVE PROTEIN (test code = 13.1 C-REACTIVE PROTEIN) [facility] HospitalMqdxevePKVZLYDIVB7630-03-84 11:45:00 Test Item Value Reference Range Interpretation Comments Prealbumin (test code = Prealbumin) 25.2 18.0-45.0 [facility] FNSCU8446-28-58 11:45:00 Test Item Value Reference Range Interpretation Comments Magnesium Lvl (test code = Magnesium 2.3 1.8-2.4 Lvl) [facility]2018-05-04 11:45:00 Test Item Value Reference Range Interpretation Comments Phosphorus (test code = Phosphorus) 3.5 2.5-4.5 [facility]inteVcnwztdMUZOLZKMTG2736-62-13 11:45:00 Test Item Value Reference Range Interpretation Comments PT (test code = PT) 14.0 s 12.0-14.7 [facility] PointeCyohtxoDLILKMXTQS4325-72-43 11:45:00 Test Item Value Reference Range Interpretation Comments PTT (test code = PTT) 37.6 s 22.9-35.8 [facility] PointeHqenmamQTBONHVJHC6813-87-08 11:45:00 Test Item Value Reference Range Interpretation Comments INR (test code = INR) 1.08 1 0.85-1.17 [facility]GtgmwrsYKPUDFVPGM5183-16-54 11:45:00 Test Item Value Reference Range Interpretation Comments C-REACTIVE PROTEIN (test code = 13.1 C-REACTIVE PROTEIN) [facility]anoFatjtoyFVKOCIDNPH2270-13-89 11:45:00 Test Item Value Reference Range Interpretation Comments Prealbumin (test code = Prealbumin) 25.2 18.0-45.0 [facility]2018-05-04 11:45:00 Test Item Value Reference Range Interpretation Comments Magnesium Lvl (test code = Magnesium 2.3 1.8-2.4 Lvl) [facility]2018-05-04 11:45:00 Test Item Value Reference Range Interpretation Comments Phosphorus (test code = Phosphorus) 3.5 2.5-4.5 [facility]inteCdtsrnqCIWBIEUKLX9147-97-56 11:45:00 Test Item Value Reference Range Interpretation Comments PT (test code = PT) 14.0 s 12.0-14.7 [facility] PointeEpbbmzvUFEPGXLJUE3784-64-66 11:45:00 Test Item Value Reference Range Interpretation Comments PTT (test code = PTT) 37.6 s 22.9-35.8 [facility] PointeVcruaycIUEVLRNCKV3269-00-18 11:45:00 Test Item Value Reference Range Interpretation Comments INR (test code = INR) 1.08 1 0.85-1.17 [facility]anoNjjbvqzJMPQEHWLIS3781-98-29 11:45:00 Test Item Value Reference Range Interpretation Comments C-REACTIVE PROTEIN (test code = 13.1 C-REACTIVE PROTEIN) [facility]anoVrxsboxIOCFHAZZAW7410-10-64 11:45:00 Test Item Value Reference Range Interpretation Comments Prealbumin (test code = Prealbumin) 25.2 18.0-45.0 [facility]2018-05-04 11:45:00 Test Item Value Reference Range Interpretation Comments Magnesium Lvl (test code = Magnesium 2.3 1.8-2.4 Lvl) [facility] [facility]04 11:45:00 Test Item Value Reference Range Interpretation Comments Phosphorus (test code = Phosphorus) 3.5 2.5-4.5 [facility]inteSrsulfwTULNROQSCC1740-93-06 11:45:00 Test Item Value Reference Range Interpretation Comments PT (test code = PT) 14.0 s 12.0-14.7 [facility] PointePsqgmixGITUFEZHJJ6809-23-68 11:45:00 Test Item Value Reference Range Interpretation Comments PTT (test code = PTT) 37.6 s 22.9-35.8 [facility] PointeEhultthVVXWSQSQRE8728-04-32 11:45:00 Test Item Value Reference Range Interpretation Comments INR (test code = INR) 1.08 1 0.85-1.17 [facility]SjeqxmdHGCAZDNYVP1242-46-95 11:45:00 Test Item Value Reference Range Interpretation Comments C-REACTIVE PROTEIN (test code = 13.1 C-REACTIVE PROTEIN) [facility]anoOkbqsbzOTCCSSBBGF3088-67-43 11:45:00 Test Item Value Reference Range Interpretation Comments Prealbumin (test code = Prealbumin) 25.2 18.0-45.0 [facility]2018-05-04 11:45:00 Test Item Value Reference Range Interpretation Comments Magnesium Lvl (test code = Magnesium 2.3 1.8-2.4 Lvl) [facility]2018-05-04 11:45:00 Test Item Value Reference Range Interpretation Comments Phosphorus (test code = Phosphorus) 3.5 2.5-4.5 [facility] PointeDntahinGMOESAJAKS5892-68-96 11:45:00 Test Item Value Reference Range Interpretation Comments PT (test code = PT) 14.0 s 12.0-14.7 [facility] PointeQdvsazsOFYVGIJTTO6661-38-17 11:45:00 Test Item Value Reference Range Interpretation Comments PTT (test code = PTT) 37.6 s 22.9-35.8 [facility] PointeQndobasNDCDTUHVDJ6535-92-11 11:45:00 Test Item Value Reference Range Interpretation Comments INR (test code = INR) 1.08 1 0.85-1.17 [facility]anoWzcwglcFJSWTQIJMB7545-94-91 11:45:00 Test Item Value Reference Range Interpretation Comments C-REACTIVE PROTEIN (test code = 13.1 C-REACTIVE PROTEIN) [place] [address]-05-04 11:45:00 Test Item Value Reference Range Interpretation Comments Prealbumin (test code = Prealbumin) 25.2 18.0-45.0 [facility]2018-05-04 11:45:00 Test Item Value Reference Range Interpretation Comments Magnesium Lvl (test code = Magnesium 2.3 1.8-2.4 Lvl) [facility]2018-05-04 11:45:00 Test Item Value Reference Range Interpretation Comments Phosphorus (test code = Phosphorus) 3.5 2.5-4.5 [facility] PointeNgkhjfrDIAADXXCJC8300-16-81 11:45:00 Test Item Value Reference Range Interpretation Comments PT (test code = PT) 14.0 s 12.0-14.7 [facility] PointeCltabhzTCHGGPMBQT8541-68-52 11:45:00 Test Item Value Reference Range Interpretation Comments PTT (test code = PTT) 37.6 s 22.9-35.8 [facility] PointeEgffhyoVSCGRGAIEB4679-77-56 11:45:00 Test Item Value Reference Range Interpretation Comments INR (test code = INR) 1.08 1 0.85-1.17 [facility]anoYmdavrzFWHPFXJXRR4926-49-20 11:45:00 Test Item Value Reference Range Interpretation Comments C-REACTIVE PROTEIN (test code = 13.1 C-REACTIVE PROTEIN) [facility]anoRsvhtblELZWUXMHKE2751-61-25 11:45:00 Test Item Value Reference Range Interpretation Comments Prealbumin (test code = Prealbumin) 25.2 18.0-45.0 [facility]2018-05-04 11:45:00 Test Item Value Reference Range Interpretation Comments Magnesium Lvl (test code = Magnesium 2.3 1.8-2.4 Lvl) [facility]2018-05-04 11:45:00 Test Item Value Reference Range Interpretation Comments Phosphorus (test code = Phosphorus) 3.5 2.5-4.5 [facility] PointeAsjhvjgOZZVLOWJKF2733-10-45 11:45:00 Test Item Value Reference Range Interpretation Comments PT (test code = PT) 14.0 s 12.0-14.7 [facility] PointeZjfzljyVRCIQIYOAC0039-45-53 11:45:00 Test Item Value Reference Range Interpretation Comments PTT (test code = PTT) 37.6 s 22.9-35.8 [facility] PointeMwnspjoHIVXERCPIQ8558-93-84 11:45:00 Test Item Value Reference Range Interpretation Comments INR (test code = INR) 1.08 1 0.85-1.17 [facility]anoRrfaxdaECZBEQCUZY5460-81-20 11:45:00 Test Item Value Reference Range Interpretation Comments C-REACTIVE PROTEIN (test code = 13.1 C-REACTIVE PROTEIN) [facility]anoEovmalcTMEUZXGTDV9171-84-46 11:45:00 Test Item Value Reference Range Interpretation Comments Prealbumin (test code = Prealbumin) 25.2 18.0-45.0 [facility]2018-05-04 11:45:00 Test Item Value Reference Range Interpretation Comments Magnesium Lvl (test code = Magnesium 2.3 1.8-2.4 Lvl) [facility]2018-05-04 11:45:00 Test Item Value Reference Range Interpretation Comments Phosphorus (test code = Phosphorus) 3.5 2.5-4.5 [facility] PointeRgvvhspZVMLLHREBC6087-63-24 11:45:00 Test Item Value Reference Range Interpretation Comments PT (test code = PT) 14.0 s 12.0-14.7 [facility] PointePrhsoknSVTFEVYMDU1899-32-92 11:45:00 Test Item Value Reference Range Interpretation Comments PTT (test code = PTT) 37.6 s 22.9-35.8 [facility] PointeLzahgklTFVHNJIRIR8922-83-06 11:45:00 Test Item Value Reference Range Interpretation Comments INR (test code = INR) 1.08 1 0.85-1.17 [facility]anoYbzkbxdYBRKMANNVO6433-95-16 11:45:00 Test Item Value Reference Range Interpretation Comments C-REACTIVE PROTEIN (test code = 13.1 C-REACTIVE PROTEIN) [facility]anoEurietiZTLUGBRKCF1835-68-59 11:45:00 Test Item Value Reference Range Interpretation Comments Prealbumin (test code = Prealbumin) 25.2 18.0-45.0 [facility]2018-05-04 03:06:00 Test Item Value Reference Range Interpretation Comments Lactic Acid Lvl (test code = Lactic 0.9 0.5-2.2 Acid Lvl) [facility] PointeSxpbolbPBKXFQZFWI8590-64-09 03:06:00 Test Item Value Reference Range Interpretation Comments Sed Rate (test code = 5 See_Comment [Auto mated message] The Sed Rate) system which ge nerated this result transmit lester reference range : <=15. The reference range was not used to interpr et this result as dany l/abnormal. [place] [address]-05-04 03:06:00 Test Item Value Reference Range Interpretation Comments C-REACTIVE PROTEIN (test code = 15.8 C-REACTIVE PROTEIN) [facility]2018-05-04 03:06:00 Test Item Value Reference Range Interpretation Comments Lactic Acid Lvl (test code = Lactic 0.9 0.5-2.2 Acid Lvl) [facility] PointeCbyloejFAQKKQSFSS3383-76-65 03:06:00 Test Item Value Reference Range Interpretation Comments Sed Rate (test code = 5 See_Comment [Auto mated message] The Sed Rate) system which ge nerated this result transmit lester reference range : <=15. The reference range was not used to interpr et this result as dany l/abnormal. [place] [address]-05-04 03:06:00 Test Item Value Reference Range Interpretation Comments C-REACTIVE PROTEIN (test code = 15.8 C-REACTIVE PROTEIN) [facility]2018-05-04 03:06:00 Test Item Value Reference Range Interpretation Comments Lactic Acid Lvl (test code = Lactic 0.9 0.5-2.2 Acid Lvl) [facility] PointeWpwqygmCNYTPKEQEP4050-72-86 03:06:00 Test Item Value Reference Range Interpretation Comments Sed Rate (test code = 5 See_Comment [Auto mated message] The Sed Rate) system which ge nerated this result transmit lester reference range : <=15. The reference range was not used to interpr et this result as dany l/abnormal. [place] [address]-05-04 03:06:00 Test Item Value Reference Range Interpretation Comments C-REACTIVE PROTEIN (test code = 15.8 C-REACTIVE PROTEIN) [facility]2018-05-04 03:06:00 Test Item Value Reference Range Interpretation Comments Lactic Acid Lvl (test code = Lactic 0.9 0.5-2.2 Acid Lvl) [facility] PointePigdmikYDNJVSNDDB3182-93-95 03:06:00 Test Item Value Reference Range Interpretation Comments Sed Rate (test code = 5 See_Comment [Auto mated message] The Sed Rate) system which ge nerated this result transmit lester reference range : <=15. The reference range was not used to interpr et this result as dany l/abnormal. [facility]anoXmhqrtgHROLFYQWJR2902-89-26 03:06:00 Test Item Value Reference Range Interpretation Comments C-REACTIVE PROTEIN (test code = 15.8 C-REACTIVE PROTEIN) [facility]2018-05-04 03:06:00 Test Item Value Reference Range Interpretation Comments Lactic Acid Lvl (test code = Lactic 0.9 0.5-2.2 Acid Lvl) [facility] PointeFglpfxmNKSCQNRMCA1878-60-69 03:06:00 Test Item Value Reference Range Interpretation Comments Sed Rate (test code = 5 See_Comment [Auto mated message] The Sed Rate) system which ge nerated this result transmit lester reference range : <=15. The reference range was not used to interpr et this result as dany l/abnormal. [facility] PlanoGtdhcstLFILINDXBK3804-27-87 03:06:00 Test Item Value Reference Range Interpretation Comments C-REACTIVE PROTEIN (test code = 15.8 C-REACTIVE PROTEIN) [facility]2018-05-04 03:06:00 Test Item Value Reference Range Interpretation Comments Lactic Acid Lvl (test code = Lactic 0.9 0.5-2.2 Acid Lvl) [facility] PointeTpgforpKUGZHKVLKU8362-20-73 03:06:00 Test Item Value Reference Range Interpretation Comments Sed Rate (test code = 5 See_Comment [Auto mated message] The Sed Rate) system which ge nerated this result transmit lester reference range : <=15. The reference range was not used to interpr et this result as dany l/abnormal. [facility]anoXyjnmtkHGNQEBRBZP9681-59-02 03:06:00 Test Item Value Reference Range Interpretation Comments C-REACTIVE PROTEIN (test code = 15.8 C-REACTIVE PROTEIN) [facility]2018-05-04 03:06:00 Test Item Value Reference Range Interpretation Comments Lactic Acid Lvl (test code = Lactic 0.9 0.5-2.2 Acid Lvl) [facility] PointeBnchxbjOJQCGPPPOB4451-12-57 03:06:00 Test Item Value Reference Range Interpretation Comments Sed Rate (test code = 5 See_Comment [Auto mated message] The Sed Rate) system which ge nerated this result transmit lester reference range : <=15. The reference range was not used to interpr et this result as dany l/abnormal. [facility]anoBgkuxltDOFGNPQHGL3322-41-04 03:06:00 Test Item Value Reference Range Interpretation Comments C-REACTIVE PROTEIN (test code = 15.8 C-REACTIVE PROTEIN) [facility]2018-05-04 03:06:00 Test Item Value Reference Range Interpretation Comments Lactic Acid Lvl (test code = Lactic 0.9 0.5-2.2 Acid Lvl) [facility] PointePtsgjlhRMVWHLPTGV1069-94-25 03:06:00 Test Item Value Reference Range Interpretation Comments Sed Rate (test code = 5 See_Comment [Auto mated message] The Sed Rate) system which ge nerated this result transmit lester reference range : <=15. The reference range was not used to interpr et this result as dany l/abnormal. [facility]anoPzvlihmAKHBESSUPY1601-38-66 03:06:00 Test Item Value Reference Range Interpretation Comments C-REACTIVE PROTEIN (test code = 15.8 C-REACTIVE PROTEIN) [facility]inteElsbpmaBGIXRHUZDK1395-80-49 00:44:00 Test Item Value Reference Range Interpretation Comments PT (test code = PT) 13.0 s 12.0-14.7 [facility] PointeZqlqetsNYSHMMOBOD5669-30-50 00:44:00 Test Item Value Reference Range Interpretation Comments INR (test code = INR) 0.98 1 0.85-1.17 [facility] PointeYnwhlcfLERQBIWCKO3334-83-22 00:44:00 Test Item Value Reference Range Interpretation Comments PTT (test code = PTT) 33.2 s 22.9-35.8 [facility] PointeXdmkebaVWXGIVUMFZ2939-50-09 00:44:00 Test Item Value Reference Range Interpretation Comments PT (test code = PT) 13.0 s 12.0-14.7 [facility] PointeKljjagcNIHIWDHPAQ3523-66-25 00:44:00 Test Item Value Reference Range Interpretation Comments INR (test code = INR) 0.98 1 0.85-1.17 [place]988-05-04 00:44:00 Test Item Value Reference Range Interpretation Comments PTT (test code = PTT) 33.2 s 22.9-35.8 [facility] PointeTvcdqciYNLPYFUZOK1215-97-38 00:44:00 Test Item Value Reference Range Interpretation Comments PT (test code = PT) 13.0 s 12.0-14.7 [facility] PointeXjjnosmGIHLPTYRUX1262-94-49 00:44:00 Test Item Value Reference Range Interpretation Comments INR (test code = INR) 0.98 1 0.85-1.17 [place] [address]-05-04 00:44:00 Test Item Value Reference Range Interpretation Comments PTT (test code = PTT) 33.2 s 22.9-35.8 [facility] PointeQjbqsryEDEVQKAVKE4518-33-35 00:44:00 Test Item Value Reference Range Interpretation Comments PT (test code = PT) 13.0 s 12.0-14.7 [facility] PointeVoeypgcXCGEQXPWNP0595-16-42 00:44:00 Test Item Value Reference Range Interpretation Comments INR (test code = INR) 0.98 1 0.85-1.17 [facility] PointeZxpdqsjPWJICDOJCG4515-85-72 00:44:00 Test Item Value Reference Range Interpretation Comments PTT (test code = PTT) 33.2 s 22.9-35.8 [facility] PointeIbrqwgeBXUQSPMUDK7360-10-70 00:44:00 Test Item Value Reference Range Interpretation Comments PT (test code = PT) 13.0 s 12.0-14.7 [facility] PointeXxanqhoFGIYYQIGAM9144-90-45 00:44:00 Test Item Value Reference Range Interpretation Comments INR (test code = INR) 0.98 1 0.85-1.17 [facility] PointeXqhixmpJLQPRETXND1063-36-60 00:44:00 Test Item Value Reference Range Interpretation Comments PTT (test code = PTT) 33.2 s 22.9-35.8 [facility] PointeLgnqgwlAESCTHZRNR5915-33-85 00:44:00 Test Item Value Reference Range Interpretation Comments PT (test code = PT) 13.0 s 12.0-14.7 [facility] PointeXjqfpplANXEASQXRX1222-19-04 00:44:00 Test Item Value Reference Range Interpretation Comments INR (test code = INR) 0.98 1 0.85-1.17 [place] [address]-05-04 00:44:00 Test Item Value Reference Range Interpretation Comments PTT (test code = PTT) 33.2 s 22.9-35.8 [facility] PointeSotrsggJELXCNEGMK5669-72-51 00:44:00 Test Item Value Reference Range Interpretation Comments PT (test code = PT) 13.0 s 12.0-14.7 [facility] PointeTyjllbwLVHGVODRZF5227-61-60 00:44:00 Test Item Value Reference Range Interpretation Comments INR (test code = INR) 0.98 1 0.85-1.17 [facility] PointeBsqudqzJEGYNNGXUF1828-55-13 00:44:00 Test Item Value Reference Range Interpretation Comments PTT (test code = PTT) 33.2 s 22.9-35.8 [facility] PointeJwcosevQRUISIOKYD9243-17-15 00:44:00 Test Item Value Reference Range Interpretation Comments PT (test code = PT) 13.0 s 12.0-14.7 [facility] PointeEdqebxwQYPJAYUCDM8132-00-46 00:44:00 Test Item Value Reference Range Interpretation Comments INR (test code = INR) 0.98 1 0.85-1.17 [facility] PointeHjxoanaCBQNZXKPQI8630-91-64 00:44:00 Test Item Value Reference Range Interpretation Comments PTT (test code = PTT) 33.2 s 22.9-35.8 [facility]ennial[facility] [id number] 23:51:00 Test Item Value Reference Range Interpretation Comments Antibody Scrn (test Negative (11/14/17 6:51 code = Antibody Scrn) PM) [facility] CentennialDianping [id number] 23:51:00 Test Item Value Reference Range Interpretation Comments ABO/Rh (test code = ABO/Rh) AB POS [facility] GilbertDianping [id number] 23:51:00 Test Item Value Reference Range Interpretation Comments Antibody Scrn (test Negative (11/14/17 6:51 code = Antibody Scrn) PM) [facility]cker [id number] 23:51:00 Test Item Value Reference Range Interpretation Comments ABO/Rh (test code = ABO/Rh) AB POS [facility] PureForgeDianping [id number] 23:51:00 Test Item Value Reference Range Interpretation Comments Antibody Scrn (test Negative (11/14/17 6:51 code = Antibody Scrn) PM) [facility] [id number] 23:51:00 Test Item Value Reference Range Interpretation Comments ABO/Rh (test code = ABO/Rh) AB POS [facility] [id number] 23:51:00 Test Item Value Reference Range Interpretation Comments Antibody Scrn (test Negative (11/14/17 6:51 code = Antibody Scrn) PM) [facility]ScribbleLivePRO[facility] [id number] 23:51:00 Test Item Value Reference Range Interpretation Comments ABO/Rh (test code = ABO/Rh) AB POS [facility] [id number] 23:51:00 Test Item Value Reference Range Interpretation Comments Antibody Scrn (test Negative (11/14/17 6:51 code = Antibody Scrn) PM) [facility] [id number] 23:51:00 Test Item Value Reference Range Interpretation Comments ABO/Rh (test code = ABO/Rh) AB POS [facility] [employer]SignStore[employer] [facility] [id number] 23:51:00 Test Item Value Reference Range Interpretation Comments Antibody Scrn (test Negative (11/14/17 6:51 code = Antibody Scrn) PM) [facility] [id number] 23:51:00 Test Item Value Reference Range Interpretation Comments ABO/Rh (test code = ABO/Rh) AB POS [facility]Flag[facility] [id number] 23:51:00 Test Item Value Reference Range Interpretation Comments Antibody Scrn (test Negative (11/14/17 6:51 code = Antibody Scrn) PM) [facility] RenaissanceScribbleLiveSignStore[facility] [id number] 23:51:00 Test Item Value Reference Range Interpretation Comments ABO/Rh (test code = ABO/Rh) [facility] [id number] 23:51:00 Test Item Value Reference Range Interpretation Comments Antibody Scrn (test Negative (11/14/17 6:51 code = Antibody Scrn) PM) [facility] [id number] 23:51:00 Test Item Value Reference Range Interpretation Comments ABO/Rh (test code = ABO/Rh) AB POS [facility] [id number] 23:35:00 Test Item Value Reference Range Interpretation Comments UA Urobilinogen (test code = UA 0.2 0.1-1.0 Urobilinogen) [facility] [id number] 23:35:00 Test Item Value Reference Range Interpretation Comments UA Nitrite (test code Negative (11/14/17 6:35 = UA Nitrite) PM) [facility] [id number] 23:35:00 Test Item Value Reference Range Interpretation Comments UA Glucose (test code Negative (11/14/17 6:35 = UA Glucose) PM) [facility] [id number] 23:35:00 Test Item Value Reference Range Interpretation Comments UA Ketones (test code Negative *NA*(11/14/17 = UA Ketones) 6:35 PM) [facility] [id number] 23:35:00 Test Item Value Reference Range Interpretation Comments UA Bili (test code = Negative *NA*(11/14/17 UA Bili) 6:35 PM) [facility] [id number] 23:35:00 Test Item Value Reference Range Interpretation Comments UA Blood (test code = Trace *ABN*(11/14/17 UA Blood) 6:35 PM) [facility] [id number] 23:35:00 Test Item Value Reference Range Interpretation Comments UA Leuk Est (test code Small *ABN*(11/14/17 6:35 = UA Leuk Est) PM) [facility] [id number] 23:35:00 Test Item Value Reference Range Interpretation Comments UA Spec Grav (test code = UA Spec 1.020 1 Grav) [facility] [id number] 23:35:00 Test Item Value Reference Range Interpretation Comments UA pH (test code = UA pH) 6.0 1 5.0-8.0 [facility] [id number] 23:35:00 Test Item Value Reference Range Interpretation Comments UA Color (test code = Yellow *NA*(11/14/17 6:35 UA Color) PM) [facility] [id number] 23:35:00 Test Item Value Reference Range Interpretation Comments UA Protein (test code = Trace *ABN*(11/14/17 UA Protein) 6:35 PM) [facility] [id number] 23:35:00 Test Item Value Reference Range Interpretation Comments UA Turbidity (test code Slight Cloudy (11/14/17 = UA Turbidity) 6:35 PM) [facility] [id number] 23:35:00 Test Item Value Reference Range Interpretation Comments UA Hyal Cast 0-2 (11/14/17 6:35 See_Comment [Automated message] (test code = UA PM) The system w [facility] Hyal Cast) generated this result transmitted ref erence range: <=2. The reference range was not used to int erpret this result as normal/abnormal . [facility] [id number] 23:35:00 Test Item Value Reference Range Interpretation Comments UA Bacteria (test code = UA Occasional /HPF Bacteria) [facility] [id number] 23:35:00 Test Item Value Reference Range Interpretation Comments UA RBC (test code 11-20 /HPF See_Comment [Automate d message] The = UA RBC) system which ge nerated this result tra nsmitted reference range : <=2. The reference range was not used to interpr et this result as normal/abnormal . [facility] [id number] 23:35:00 Test Item Value Reference Range Interpretation Comments UA Sq Epi (test code = UA Sq Occasional /LPF Epi) [facility] [id number] 23:35:00 Test Item Value Reference Range Interpretation Comments UA WBC (test code = UA WBC) 51-100 /HPF [facility] [id number] 23:35:00 Test Item Value Reference Range Interpretation Comments UA Urobilinogen (test code = UA 0.2 0.1-1.0 Urobilinogen) [facility] [id number] 23:35:00 Test Item Value Reference Range Interpretation Comments UA Nitrite (test code Negative (11/14/17 6:35 = UA Nitrite) PM) [facility] [id number] 23:35:00 Test Item Value Reference Range Interpretation Comments UA Glucose (test code Negative (11/14/17 6:35 = UA Glucose) PM) [facility] [id number] 23:35:00 Test Item Value Reference Range Interpretation Comments UA Ketones (test code Negative *NA*(11/14/17 = UA Ketones) 6:35 PM) [facility] [id number] 23:35:00 Test Item Value Reference Range Interpretation Comments UA Bili (test code = Negative *NA*(11/14/17 UA Bili) 6:35 PM) [facility] [id number] 23:35:00 Test Item Value Reference Range Interpretation Comments UA Blood (test code = Trace *ABN*(11/14/17 UA Blood) 6:35 PM) [facility] [id number] 23:35:00 Test Item Value Reference Range Interpretation Comments UA Leuk Est (test code Small *ABN*(11/14/17 6:35 = UA Leuk Est) PM) [facility] [id number] 23:35:00 Test Item Value Reference Range Interpretation Comments UA Spec Grav (test code = UA Spec 1.020 1 Grav) [facility] AND [id number] 23:35:00 Test Item Value Reference Range Interpretation Comments UA pH (test code = UA pH) 6.0 1 5.0-8.0 [facility] AND [id number] 23:35:00 Test Item Value Reference Range Interpretation Comments UA Color (test code = Yellow *NA*(11/14/17 6:35 UA Color) PM) [facility] AND [id number] 23:35:00 Test Item Value Reference Range Interpretation Comments UA Protein (test code = Trace *ABN*(11/14/17 UA Protein) 6:35 PM) [facility] AND [id number] 23:35:00 Test Item Value Reference Range Interpretation Comments UA Turbidity (test code Slight Cloudy (11/14/17 = UA Turbidity) 6:35 PM) [facility] AND [id number] 23:35:00 Test Item Value Reference Range Interpretation Comments UA Hyal Cast 0-2 (11/14/17 6:35 See_Comment [Automated message] (test code = UA PM) The system w [facility] [place] Hyal Cast) generated this result transmitted ref erence range: <=2. The reference range was not used to int erpret this result as normal/abnormal . [facility] AND [id number] 23:35:00 Test Item Value Reference Range Interpretation Comments UA Bacteria (test code = UA Occasional /HPF Bacteria) [facility] AND [id number] 23:35:00 Test Item Value Reference Range Interpretation Comments UA RBC (test code 11-20 /HPF See_Comment [Automate d message] The = UA RBC) system which ge nerated this result tra nsmitted reference range : <=2. The reference range was not used to interpr et this result as normal/abnormal . [facility] AND [id number] 23:35:00 Test Item Value Reference Range Interpretation Comments UA Sq Epi (test code = UA Sq Occasional /LPF Epi) [facility] AND [id number] 23:35:00 Test Item Value Reference Range Interpretation Comments UA WBC (test code = UA WBC) 51-100 /HPF [facility] AND [id number] 23:35:00 Test Item Value Reference Range Interpretation Comments UA Urobilinogen (test code = UA 0.2 0.1-1.0 Urobilinogen) [facility] AND [id number] 23:35:00 Test Item Value Reference Range Interpretation Comments UA Nitrite (test code Negative (11/14/17 6:35 = UA Nitrite) PM) [facility] AND [id number] 23:35:00 Test Item Value Reference Range Interpretation Comments UA Glucose (test code Negative (11/14/17 6:35 = UA Glucose) PM) [facility] AND [id number] 23:35:00 Test Item Value Reference Range Interpretation Comments UA Ketones (test code Negative *NA*(11/14/17 = UA Ketones) 6:35 PM) [facility] AND [id number] 23:35:00 Test Item Value Reference Range Interpretation Comments UA Bili (test code = Negative *NA*(11/14/17 UA Bili) 6:35 PM) [facility] AND [id number] 23:35:00 Test Item Value Reference Range Interpretation Comments UA Blood (test code = Trace *ABN*(11/14/17 UA Blood) 6:35 PM) [facility] AND [id number] 23:35:00 Test Item Value Reference Range Interpretation Comments UA Leuk Est (test code Small *ABN*(11/14/17 6:35 = UA Leuk Est) PM) [facility] [id number] 23:35:00 Test Item Value Reference Range Interpretation Comments UA Spec Grav (test code = UA Spec 1.020 1 Grav) [facility] AND [id number] 23:35:00 Test Item Value Reference Range Interpretation Comments UA pH (test code = UA pH) 6.0 1 5.0-8.0 [facility] [id number] 23:35:00 Test Item Value Reference Range Interpretation Comments UA Color (test code = Yellow *NA*(11/14/17 6:35 UA Color) PM) [facility] AND [id number] 23:35:00 Test Item Value Reference Range Interpretation Comments UA Protein (test code = Trace *ABN*(11/14/17 UA Protein) 6:35 PM) [facility] AND [id number] 23:35:00 Test Item Value Reference Range Interpretation Comments UA Turbidity (test code Slight Cloudy (11/14/17 = UA Turbidity) 6:35 PM) [facility] AND [id number] 23:35:00 Test Item Value Reference Range Interpretation Comments UA Hyal Cast 0-2 (11/14/17 6:35 See_Comment [Automated message] (test code = UA PM) The system w [facility] Hyal Cast) generated this result transmitted ref erence range: <=2. The reference range was not used to int erpret this result as normal/abnormal . [facility] AND [id number] 23:35:00 Test Item Value Reference Range Interpretation Comments UA Bacteria (test code = UA Occasional /HPF Bacteria) [facility] AND [id number] 23:35:00 Test Item Value Reference Range Interpretation Comments UA RBC (test code 11-20 /HPF See_Comment [Automate d message] The = UA RBC) system which ge nerated this result tra nsmitted reference range : <=2. The reference range was not used to interpr et this result as normal/abnormal . [facility] [id number] 23:35:00 Test Item Value Reference Range Interpretation Comments UA Sq Epi (test code = UA Sq Occasional /LPF Epi) [facility] AND [id number] 23:35:00 Test Item Value Reference Range Interpretation Comments UA WBC (test code = UA WBC) 51-100 /HPF [facility] AND [id number] 23:35:00 Test Item Value Reference Range Interpretation Comments UA Urobilinogen (test code = UA 0.2 0.1-1.0 Urobilinogen) [facility] AND [id number] 23:35:00 Test Item Value Reference Range Interpretation Comments UA Nitrite (test code Negative (11/14/17 6:35 = UA Nitrite) PM) [facility] AND [id number] 23:35:00 Test Item Value Reference Range Interpretation Comments UA Glucose (test code Negative (11/14/17 6:35 = UA Glucose) PM) [facility] AND [id number] 23:35:00 Test Item Value Reference Range Interpretation Comments UA Ketones (test code Negative *NA*(11/14/17 = UA Ketones) 6:35 PM) [facility] AND [id number] 23:35:00 Test Item Value Reference Range Interpretation Comments UA Bili (test code = Negative *NA*(11/14/17 UA Bili) 6:35 PM) [facility] AND [id number] 23:35:00 Test Item Value Reference Range Interpretation Comments UA Blood (test code = Trace *ABN*(11/14/17 UA Blood) 6:35 PM) [facility] AND [id number] 23:35:00 Test Item Value Reference Range Interpretation Comments UA Leuk Est (test code Small *ABN*(11/14/17 6:35 = UA Leuk Est) PM) [facility] AND [id number] 23:35:00 Test Item Value Reference Range Interpretation Comments UA Spec Grav (test code = UA Spec 1.020 1 Grav) [facility] AND [id number] 23:35:00 Test Item Value Reference Range Interpretation Comments UA pH (test code = UA pH) 6.0 1 5.0-8.0 [facility] AND [id number] 23:35:00 Test Item Value Reference Range Interpretation Comments UA Color (test code = Yellow *NA*(11/14/17 6:35 UA Color) PM) [facility] AND [id number] 23:35:00 Test Item Value Reference Range Interpretation Comments UA Protein (test code = Trace *ABN*(11/14/17 UA Protein) 6:35 PM) [facility] AND [id number] 23:35:00 Test Item Value Reference Range Interpretation Comments UA Turbidity (test code Slight Cloudy (11/14/17 = UA Turbidity) 6:35 PM) [facility] AND [id number] 23:35:00 Test Item Value Reference Range Interpretation Comments UA Hyal Cast 0-2 (11/14/17 6:35 See_Comment [Automated message] (test code = UA PM) The system w [facility] [place] Hyal Cast) generated this result transmitted ref erence range: <=2. The reference range was not used to int erpret this result as normal/abnormal . [facility] AND [id number] 23:35:00 Test Item Value Reference Range Interpretation Comments UA Bacteria (test code = UA Occasional /HPF Bacteria) [facility] AND [id number] 23:35:00 Test Item Value Reference Range Interpretation Comments UA RBC (test code 11-20 /HPF See_Comment [Automate d message] The = UA RBC) system which ge nerated this result tra nsmitted reference range : <=2. The reference range was not used to interpr et this result as normal/abnormal . [facility] AND [id number] 23:35:00 Test Item Value Reference Range Interpretation Comments UA Sq Epi (test code = UA Sq Occasional /LPF Epi) [facility] AND [id number] 23:35:00 Test Item Value Reference Range Interpretation Comments UA WBC (test code = UA WBC) 51-100 /HPF [facility] AND [id number] 23:35:00 Test Item Value Reference Range Interpretation Comments UA Urobilinogen (test code = UA 0.2 0.1-1.0 Urobilinogen) [facility] AND [id number] 23:35:00 Test Item Value Reference Range Interpretation Comments UA Nitrite (test code Negative (11/14/17 6:35 = UA Nitrite) PM) [facility] AND [id number] 23:35:00 Test Item Value Reference Range Interpretation Comments UA Glucose (test code Negative (5/3/18 6:35 = UA Glucose) PM) [facility] AND [id number] 23:35:00 Test Item Value Reference Range Interpretation Comments UA Ketones (test code Negative *NA*(11/14/17 = UA Ketones) 6:35 PM) [facility] AND [id number] 23:35:00 Test Item Value Reference Range Interpretation Comments UA Bili (test code = Negative *NA*(11/14/17 UA Bili) 6:35 PM) [facility] AND [id number] 23:35:00 Test Item Value Reference Range Interpretation Comments UA Blood (test code = Trace *ABN*(11/14/17 UA Blood) 6:35 PM) [facility] AND [id number] 23:35:00 Test Item Value Reference Range Interpretation Comments UA Leuk Est (test code Small *ABN*(11/14/17 6:35 = UA Leuk Est) PM) [facility] AND [id number] 23:35:00 Test Item Value Reference Range Interpretation Comments UA Spec Grav (test code = UA Spec 1.020 1 Grav) [facility] AND [id number] 23:35:00 Test Item Value Reference Range Interpretation Comments UA pH (test code = UA pH) 6.0 1 5.0-8.0 [facility] AND [id number] 23:35:00 Test Item Value Reference Range Interpretation Comments UA Color (test code = Yellow *NA*(11/14/17 6:35 UA Color) PM) [facility] AND [id number] 23:35:00 Test Item Value Reference Range Interpretation Comments UA Protein (test code = Trace *ABN*(11/14/17 UA Protein) 6:35 PM) [facility] AND [id number] 23:35:00 Test Item Value Reference Range Interpretation Comments UA Turbidity (test code Slight Cloudy (11/14/17 = UA Turbidity) 6:35 PM) [facility] AND [id number] 23:35:00 Test Item Value Reference Range Interpretation Comments UA Hyal Cast 0-2 (11/14/17 6:35 See_Comment [Automated message] (test code = UA PM) The system w [facility] Hyal Cast) generated this result transmitted ref erence range: <=2. The reference range was not used to int erpret this result as normal/abnormal . [facility] AND [id number] 23:35:00 Test Item Value Reference Range Interpretation Comments UA Bacteria (test code = UA Occasional /HPF Bacteria) [facility] AND [id number] 23:35:00 Test Item Value Reference Range Interpretation Comments UA RBC (test code 11-20 /HPF See_Comment [Automate d message] The = UA RBC) system which ge nerated this result tra nsmitted reference range : <=2. The reference range was not used to interpr et this result as normal/abnormal . [facility] AND [id number] 23:35:00 Test Item Value Reference Range Interpretation Comments UA Sq Epi (test code = UA Sq Occasional /LPF Epi) [facility] AND [id number] 23:35:00 Test Item Value Reference Range Interpretation Comments UA WBC (test code = UA WBC) 51-100 /HPF [facility] AND [id number] 23:35:00 Test Item Value Reference Range Interpretation Comments UA Urobilinogen (test code = UA 0.2 0.1-1.0 Urobilinogen) [facility] AND [id number] 23:35:00 Test Item Value Reference Range Interpretation Comments UA Nitrite (test code Negative (11/14/17 6:35 = UA Nitrite) PM) [facility] AND [id number] 23:35:00 Test Item Value Reference Range Interpretation Comments UA Glucose (test code Negative (11/14/17 6:35 = UA Glucose) PM) [facility] AND [id number] 23:35:00 Test Item Value Reference Range Interpretation Comments UA Ketones (test code Negative *NA*(11/14/17 = UA Ketones) 6:35 PM) [facility] AND [id number] 23:35:00 Test Item Value Reference Range Interpretation Comments UA Bili (test code = Negative *NA*(11/14/17 UA Bili) 6:35 PM) [facility] AND [id number] 23:35:00 Test Item Value Reference Range Interpretation Comments UA Blood (test code = Trace *ABN*(11/14/17 UA Blood) 6:35 PM) [facility] AND [id number] 23:35:00 Test Item Value Reference Range Interpretation Comments UA Leuk Est (test code Small *ABN*(11/14/17 6:35 = UA Leuk Est) PM) [facility] [id number] 23:35:00 Test Item Value Reference Range Interpretation Comments UA Spec Grav (test code = UA Spec 1.020 1 Grav) [facility] AND [id number] 23:35:00 Test Item Value Reference Range Interpretation Comments UA pH (test code = UA pH) 6.0 1 5.0-8.0 [facility] AND [id number] 23:35:00 Test Item Value Reference Range Interpretation Comments UA Color (test code = Yellow *NA*(11/14/17 6:35 UA Color) PM) [facility] [id number] 23:35:00 Test Item Value Reference Range Interpretation Comments UA Protein (test code = Trace *ABN*(11/14/17 UA Protein) 6:35 PM) [facility] [id number] 23:35:00 Test Item Value Reference Range Interpretation Comments UA Turbidity (test code Slight Cloudy (11/14/17 = UA Turbidity) 6:35 PM) [facility] [id number] 23:35:00 Test Item Value Reference Range Interpretation Comments UA Hyal Cast 0-2 (11/14/17 6:35 See_Comment [Automated message] (test code = UA PM) The system w [facility] [place] Hyal Cast) generated this result transmitted ref erence range: <=2. The reference range was not used to int erpret this result as normal/abnormal . [facility] AND [id number] 23:35:00 Test Item Value Reference Range Interpretation Comments UA Bacteria (test code = UA Occasional /HPF Bacteria) [facility] [id number] 23:35:00 Test Item Value Reference Range Interpretation Comments UA RBC (test code 11-20 /HPF See_Comment [Automate d message] The = UA RBC) system which ge nerated this result tra nsmitted reference range : <=2. The reference range was not used to interpr et this result as normal/abnormal . [facility] AND [id number] 23:35:00 Test Item Value Reference Range Interpretation Comments UA Sq Epi (test code = UA Sq Occasional /LPF Epi) [facility] AND [id number] 23:35:00 Test Item Value Reference Range Interpretation Comments UA WBC (test code = UA WBC) 51-100 /HPF [facility] AND [id number] 23:35:00 Test Item Value Reference Range Interpretation Comments UA Urobilinogen (test code = UA 0.2 0.1-1.0 Urobilinogen) [facility] AND [id number] 23:35:00 Test Item Value Reference Range Interpretation Comments UA Nitrite (test code Negative (11/14/17 6:35 = UA Nitrite) PM) [facility] AND [id number] 23:35:00 Test Item Value Reference Range Interpretation Comments UA Glucose (test code Negative (11/14/17 6:35 = UA Glucose) PM) [facility] AND [id number] 23:35:00 Test Item Value Reference Range Interpretation Comments UA Ketones (test code Negative *NA*(11/14/17 = UA Ketones) 6:35 PM) [facility] AND [id number] 23:35:00 Test Item Value Reference Range Interpretation Comments UA Bili (test code = Negative *NA*(11/14/17 UA Bili) 6:35 PM) [facility] AND [id number] 23:35:00 Test Item Value Reference Range Interpretation Comments UA Blood (test code = Trace *ABN*(11/14/17 UA Blood) 6:35 PM) [facility] AND [id number] 23:35:00 Test Item Value Reference Range Interpretation Comments UA Leuk Est (test code Small *ABN*(11/14/17 6:35 = UA Leuk Est) PM) [facility] AND [id number] 23:35:00 Test Item Value Reference Range Interpretation Comments UA Spec Grav (test code = UA Spec 1.020 1 Grav) [facility] AND [id number] 23:35:00 Test Item Value Reference Range Interpretation Comments UA pH (test code = UA pH) 6.0 1 5.0-8.0 [facility] AND [id number] 23:35:00 Test Item Value Reference Range Interpretation Comments UA Color (test code = Yellow *NA*(11/14/17 6:35 UA Color) PM) [facility] AND [id number] 23:35:00 Test Item Value Reference Range Interpretation Comments UA Protein (test code = Trace *ABN*(11/14/17 UA Protein) 6:35 PM) [facility] AND [id number] 23:35:00 Test Item Value Reference Range Interpretation Comments UA Turbidity (test code Slight Cloudy (11/14/17 = UA Turbidity) 6:35 PM) [facility] AND [id number] 23:35:00 Test Item Value Reference Range Interpretation Comments UA Hyal Cast 0-2 (11/14/17 6:35 See_Comment [Automated message] (test code = UA PM) The system w [facility] [place] Hyal Cast) generated this result transmitted ref erence range: <=2. The reference range was not used to int erpret this result as normal/abnormal . [facility] AND [id number] 23:35:00 Test Item Value Reference Range Interpretation Comments UA Bacteria (test code = UA Occasional /HPF Bacteria) [facility] AND [id number] 23:35:00 Test Item Value Reference Range Interpretation Comments UA RBC (test code 11-20 /HPF See_Comment [Automate d message] The = UA RBC) system which ge nerated this result tra nsmitted reference range : <=2. The reference range was not used to interpr et this result as normal/abnormal . [facility] AND [id number] 23:35:00 Test Item Value Reference Range Interpretation Comments UA Sq Epi (test code = UA Sq Occasional /LPF Epi) [facility] AND [id number] 23:35:00 Test Item Value Reference Range Interpretation Comments UA WBC (test code = UA WBC) 51-100 /HPF [facility] AND [id number] 23:35:00 Test Item Value Reference Range Interpretation Comments UA Urobilinogen (test code = UA 0.2 0.1-1.0 Urobilinogen) [facility] AND [id number] 23:35:00 Test Item Value Reference Range Interpretation Comments UA Nitrite (test code Negative (11/14/17 6:35 = UA Nitrite) PM) [facility] AND [id number] 23:35:00 Test Item Value Reference Range Interpretation Comments UA Glucose (test code Negative (11/14/17 6:35 = UA Glucose) PM) [facility] AND [id number] 23:35:00 Test Item Value Reference Range Interpretation Comments UA Ketones (test code Negative *NA*(11/14/17 = UA Ketones) 6:35 PM) [facility] AND [id number] 23:35:00 Test Item Value Reference Range Interpretation Comments UA Bili (test code = Negative *NA*(11/14/17 UA Bili) 6:35 PM) [facility] AND [id number] 23:35:00 Test Item Value Reference Range Interpretation Comments UA Blood (test code = Trace *ABN*(11/14/17 UA Blood) 6:35 PM) [facility] AND [id number] 23:35:00 Test Item Value Reference Range Interpretation Comments UA Leuk Est (test code Small *ABN*(11/14/17 6:35 = UA Leuk Est) PM) [facility] AND [id number] 23:35:00 Test Item Value Reference Range Interpretation Comments UA Spec Grav (test code = UA Spec 1.020 1 Grav) [facility] AND [id number] 23:35:00 Test Item Value Reference Range Interpretation Comments UA pH (test code = UA pH) 6.0 1 5.0-8.0 [facility] AND [id number] 23:35:00 Test Item Value Reference Range Interpretation Comments UA Color (test code = Yellow *NA*(11/14/17 6:35 UA Color) PM) [facility] AND [id number] 23:35:00 Test Item Value Reference Range Interpretation Comments UA Protein (test code = Trace *ABN*(11/14/17 UA Protein) 6:35 PM) [facility] AND [id number] 23:35:00 Test Item Value Reference Range Interpretation Comments UA Turbidity (test code Slight Cloudy (11/14/17 = UA Turbidity) 6:35 PM) [facility] AND [id number] 23:35:00 Test Item Value Reference Range Interpretation Comments UA Hyal Cast 0-2 (11/14/17 6:35 See_Comment [Automated message] (test code = UA PM) The system w torri Duy [employer]) generated this result transmitted ref erence range: <=2. The reference range was not used to int erpret this result as normal/abnormal . [facility] AND [id number] 23:35:00 Test Item Value Reference Range Interpretation Comments UA Bacteria (test code = UA Occasional /HPF Bacteria) [facility] AND [id number] 23:35:00 Test Item Value Reference Range Interpretation Comments UA RBC (test code 11-20 /HPF See_Comment [Automate d message] The = UA RBC) system which ge nerated this result tra nsmitted reference range : <=2. The reference range was not used to interpr et this result as normal/abnormal . [facility] AND [id number] 23:35:00 Test Item Value Reference Range Interpretation Comments UA Sq Epi (test code = UA Sq Occasional /LPF Epi) [facility] AND [id number] 23:35:00 Test Item Value Reference Range Interpretation Comments UA WBC (test code = UA WBC) 51-100 /HPF [id number] 23:20:00 Test Item Value Reference Range Interpretation Comments Basophils # (test code 0.1 See_Comment [Aut omated message] The = Basophils #) system which generated this result tra nsmitted reference range : <=0.2. The reference r boubacar was not used to int erpret this result as normal/abnormal . [id number] 23:20:00 Test Item Value Reference Range Interpretation Comments Polychrom (test code = Polychrom) Slight [id number] 23:20:00 Test Item Value Reference Range Interpretation Comments Plt Morph (test code = Normal (11/14/17 6:20 PM) Plt Morph) [id number] 23:20:00 Test Item Value Reference Range Interpretation Comments Basophils # (test code 0.1 See_Comment [Aut omated message] The = Basophils #) system which generated this result tra nsmitted reference range : <=0.2. The reference r boubacar was not used to int erpret this result as normal/abnormal . [id number] 23:20:00 Test Item Value Reference Range Interpretation Comments Polychrom (test code = Polychrom) Slight [id number] 23:20:00 Test Item Value Reference Range Interpretation Comments Plt Morph (test code = Normal (518 6:20 PM) Plt Morph) [facility] [id number] 23:20:00 Test Item Value Reference Range Interpretation Comments Basophils # (test code 0.1 See_Comment [Aut omated message] The = Basophils #) system which generated this result tra nsmitted reference range : <=0.2. The reference r boubacar was not used to int erpret this result as normal/abnormal . [facility] [id number] 23:20:00 Test Item Value Reference Range Interpretation Comments Polychrom (test code = Polychrom) Slight [facility] [id number] 23:20:00 Test Item Value Reference Range Interpretation Comments Plt Morph (test code = Normal (18 6:20 PM) Plt Morph) [id number] 23:20:00 Test Item Value Reference Range Interpretation Comments Basophils # (test code 0.1 See_Comment [Aut omated message] The = Basophils #) system which generated this result tra nsmitted reference range : <=0.2. The reference r boubacar was not used to int erpret this result as normal/abnormal . [id number] 23:20:00 Test Item Value Reference Range Interpretation Comments Polychrom (test code = Polychrom) Slight [facility] [id number] 23:20:00 Test Item Value Reference Range Interpretation Comments Plt Morph (test code = Normal (518 6:20 PM) Plt Morph) [facility] [id number] 23:20:00 Test Item Value Reference Range Interpretation Comments Basophils # (test code 0.1 See_Comment [Aut omated message] The = Basophils #) system which generated this result tra nsmitted reference range : <=0.2. The reference r boubacar was not used to int erpret this result as normal/abnormal . [facility] Poin[id number] 23:20:00 Test Item Value Reference Range Interpretation Comments Polychrom (test code = Polychrom) [facility]light [facility] [id number] 23:20:00 Test Item Value Reference Range Interpretation Comments Plt Morph (test code = Normal (518 6:20 PM) Plt Morph) [facility] Poin[id number] 23:20:00 Test Item Value Reference Range Interpretation Comments Basophils # (test code 0.1 See_Comment [Aut omated message] The = Basophils #) system which generated this result tra nsmitted reference range : <=0.2. The reference r boubacar was not used to int erpret this result as normal/abnormal . [facility] [id number] 23:20:00 Test Item Value Reference Range Interpretation Comments Polychrom (test code = Polychrom) [facility]light [facility] [id number] 23:20:00 Test Item Value Reference Range Interpretation Comments Plt Morph (test code = Normal (518 6:20 PM) Plt Morph) [facility] [id number] 23:20:00 Test Item Value Reference Range Interpretation Comments Basophils # (test code 0.1 See_Comment [Aut omated message] The = Basophils #) system which generated this result tra nsmitted reference range : <=0.2. The reference r boubacar was not used to int erpret this result as normal/abnormal . [facility] [id number] 23:20:00 Test Item Value Reference Range Interpretation Comments Polychrom (test code = Polychrom) [facility]light [facility] [id number] 23:20:00 Test Item Value Reference Range Interpretation Comments Plt Morph (test code = Normal (518 6:20 PM) Plt Morph) [facility] [id number] 23:20:00 Test Item Value Reference Range Interpretation Comments Basophils # (test code 0.1 See_Comment [Aut omated message] The = Basophils #) system which generated this result tra nsmitted reference range : <=0.2. The reference r boubacar was not used to int erpret this result as normal/abnormal . [facility] PointeCtaxumdRRVLDNWZCB1730-15-35 23:20:00 Test Item Value Reference Range Interpretation Comments Polychrom (test code = Polychrom) [facility]light [facility] [id number] 23:20:00 Test Item Value Reference Range Interpretation Comments Plt Morph (test code = Normal (11/14/17 6:20 PM) Plt Morph) [facility] [id number] 16:22:00 Test Item Value Reference Range Interpretation Comments CULTURE (BEAKER) (test No growth in 5 days code = 1095) BLOOD [id number] 16:22:00 Test Item Value Reference Range Interpretation [...] Normal 762) CBC W/PLT COUNT & AUTO [id number] 22:28:00 Test Item Value Reference Range Interpretation [...] 0.00-0.20 (test code = 417) 0.000.520.000.000.000.00BASIC METABOLIC [id number] 11:11:00 Test Item Value Reference Range Interpretation [...] NOT APPLICABLE FOR DIALYSIS PATIEN TS. URINE [id number] 09:56:00 Test Item Value Reference Range Interpretation Comments CULTURE (BEAKER) (test <10,000 col/mL skin code = 1095) marilee COMPREHENSIVE METABOLIC [id number] 08:49:00 Test Item Value Reference Range Interpretation [...] PATIEN TS. CBC W/PLT COUNT & AUTO [id number] 08:46:00 Test Item Value Reference Range Interpretation [...] 0.00-0.20 (test code = 417) 0.00URINALYSIS W/ [id number] 20:36:00 Test Item Value Reference Range Interpretation [...] 520) 182 /HPF SOURCE(BEAKER) (test code = 4395) BASIC METABOLIC [id number] 17:00:00 Test Item Value Reference Range Interpretation [...] Specimen slightly ictericCBC W/PLT COUNT & AUTO [id number] 12:18:00 Test Item Value Reference Range Interpretation [...] MORPHOLOGY (BEAKER) (test code = Normal 762) Notes Date/Time Note Provider Source 2021-10-24 EXAM: DIAGNOSTIC LUMBAR PUNCTURE WITH FLUOROSCOP IC GUIDANCE [facility] 14:00:00-00:00 DATE: 10/24/2021 17:45 Center INDICATION: ' - headaches, h/o DIGITAL CONTENT PRODUCER shunt, r/o int racranial hypotension'. COMPARISON: None. TECHNIQUE AND FINDINGS: Consent: Informed written an d verbal consent were obtained from the patient. The benefits, risks, and alternatives to the procedure were explained and all questions were answered. Procedure setup: The patient was then brought to the fluoroscopy room, placed on the fluoroscopy table. Prior to beginning the procedure, 'time-out' was performed under the universal protocol with 2 pat ient identifiers establishin g the correct patient, verifying the correct procedure, correct side and site, correct patient position, and correct equipment. The appropriate level was localized using fluo roscopic guidance. The lower back was prepped and draped in the usual sterile fashion. Procedure: A total of 4 mini mal 1% lidocaine buffered with bicarbonate was used for local numbing. Under fluoroscopic guidance, a spinal needle was advanced into the thecal sac and CSF was obtained with out complication. The needle was removed and a b andage was applied. Procedure details: - Level: L2-L3 interlaminar space - Needle gauge: 22 - Needle length: 5.0 in - CSF color: clear - CSF volume: 12 mL - Opening pressure: 12 cm of water - Closing pressure: Not obtained. - Patient position: Left lateral decubitus Swapnil Diggs MD was present for the proc edure. Fluoroscopy time: 0.03 seconds Skin dose: 655 mGy IMPRESSION: 1. Successful fluoroscopically guided lumbar pun cture. 2. CSF opening pressure of 12 cm of water. 3. A total of 12 mL clear CSF was sent to the [facility] for analysis. 2021-10-23 EXAM: XR CHEST 1 VIEW [facility] 10:40:00-00:00 DATE: 10/23/2021 10:50 Center INDICATION: - INCREASE O2 REQUIREMENTS COMPARISON: CT abdomen and p claudio with contrast 10/06/2021, chest radiograph 11/14/2017 TECHNIQUE: AP chest. FINDINGS: Lines, tubes and hardware: V P drains are seen overlying the chest with tips out of the field of view. Lungs and pleura: Low lung v olumes causing bibasilar subsegmental atelectasis. No pleural effusion. No pneumothorax. Heart and mediastinum: Normal cardiomediastinal silhouette. Bones and soft tissues: No acute abnormality. IMPRESSION: 1. No acute cardiopulmonary abnormality. 2. Low lung volumes with bibasilar subsegmental atelectasis. 2021-10-23 EXAM: CT BRAIN WITHOUT CONTRAST [facility] 03:05:49-00:00 DATE: 10/23/2021 0313 hours Cente r INDICATION: - stability COMPARISON: 10/20/2021. TECHNIQUE: Axial CT images o f the brain were obtained. Sagittal and coronal reformats. IV contrast: None. DLP: Please refer to the technologist's records. FINDINGS: There is no edema, hemorrhag e, mass lesion or other acute intracranial abnormality. There is no extra-axial fluid collection. 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 Abundant right parietal approach shunt catheter. 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 The calvarium is intact. The included paranasal sinuses and mastoid air cells are clear. IMPRESSION: No acute finding. No adverse interval change. 2021-10-21 EXAM: XR SKULL 2 VIEWS [facility] 03:40:00-00:00 EXAM: XR CHEST 2 VIEWS [place] EXAM: XR ABDOMEN 2 VIEWS DATE: 10/21/2021 4:00 INDICATION: - VPS. COMPARISON: Shunt series radiograph dated 022 and 02/22/2013. TECHNIQUE: AP and lateral radiographs of the sku ll, chest and abdomen. FINDINGS: A intact right fro ntal ventriculoperitoneal catheter with proximal limb within the midline middle cranial fossa. No programmable valve device. There is likely a chronic break in the catheter a ttached to the exit and of t he valve with minimal inferior retraction and asymmetric stretching of the catheter. Distally the catheter catheter courses through the right posterior neck soft tissue, cros ses over to the left anterio r chest wall with the distal limb within the left lower quadrant. Fragments of disconnected sh unt system identified within the right posterior parietal cranium, right side of the neck and right side of the abdomen. Visualized lungs are clear. Nonobstructive bowel gas pattern. IMPRESSION: Stable right frontal shunt c atheter with a programmable valve in the right high frontal scalp. There is likely a chronic break break in the catheter attached to the exit end of the valve with inferior r etraction and asymmetric str etching of the catheter. The appearance is unchanged compared to the prior study done on 02/18/2013. 2021-10-20 EXAM: CT BRAIN WITHOUT CONTRAST. [facility] 22:01:59-00:00 DATE: 10/20/2021 18:41 Center INDICATION: - Stability CT COMPARISON: Noncontrast head CT done on 10/07/19. TECHNIQUE: Axial volumetric CT images of the brain were obtained. Reconstructions are available. IV contrast: None. FINDINGS: Evaluation is unchanged comp ared to the immediate prior noncontrast head CT done on 10/06/2021. Right frontal shunt catheter with a scalp reservoir is noted. Abandoned right parietal shunt catheter is in stable position. 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 Stable dysmorphic posterior cerebral hemispheres with evidence of Chiari II malformation are seen. There is no intracranial ble ed. There is no vasogenic edema in the brain parenchyma. Stable effacement of the ventricles is seen. Visualized orbits and paranasal sinuses appear u nremarkable. IMPRESSION: Stable noncontrast head CT with stigmata of Chiari II malformation. No change in the size or configuration of the ventricles. 2021-10-09 EXAM: NM Ventriculoperitoneal Shunt [facility] 13:10:05-00:00 DATE: 10/09/2021 6:21 CDT Center INDICATION: Rule out possible ventriculoperitone al shunt failure. COMPARISON: Brain Stealth CT without contrast TECHNIQUE: After administrat ion of 1.1 mCi of [id number] in the reservoir of the shunt aseptically, dynamic images of the head were obtained for 30 minutes. 1 hour delayed images of head/neck and the abdomen were obtained. FINDINGS: No measurable CSF pressure w ith the patient sitting up and unable to lie flat. CSF was aspirated. Tracer is seen in right temp oral reservoir immediately after tracer administration. Subsequent drainage through the shunt tubing is seen through the neck, chest, and finally drains in the peritoneal cav ity on the delayed images. T he findings are suggestive of patent ventriculoperitoneal shunt with no evidence of leak. IMPRESSION: Patent ventricle peritoneal shunt with no eviden ce of leaks. 2021-10-06 EXAM: CT BRAIN WITHOUT CONTRAST. [facility] 14:47:46-00:00 DATE: 10/06/2021 1:50 PM CDT [facility] er INDICATION: - shunt revision COMPARISON: Noncontrast head CT done on 10/05/2021 at an outside facility and 11/14/2017 at [facility]. TECHNIQUE: Axial volumetric CT images of the brain were obtained. Reconstructions are available. IV contrast: None. FINDINGS: Stigmata of Chiari II malfor mation are seen. There is a small posterior fossa with crowding and upwards transtentorial herniation. Tonsillar herniation is seen and crowding is noted at the foramen magnum. Dysgenesis of the body and s plenium of the corpus callosum is seen and there is dysgenesis of the adjacent medial cerebral hemispheres. A right frontal shunt cathet er is noted in the catheter tubing is unchanged. A discontinued right parietal shunt catheter is seen. Focal dystrophic dural calcification is noted along the left parietal convexity. The collapsed lateral ventri cles are unchanged in size since 2018. Sulcal spaces are unchanged. Soft tissues of the scalp, c alvarium, visualized orbits and paranasal sinuses appear unremarkable. IMPRESSION: 1. No acute intracranial abnormality. 2. Stigmata of Chiari II mal formation with a right frontal shunt catheter and a discontinued right parietal shunt catheter. The collapsed ventricles are unchanged in size and appearance since 2018. 2021-10-06 EXAM: CT ABDOMEN AND PELVIS WITH CONTRAST [facility] 14:47:46-00:00 DATE: 10/06/2021 13:35 CDT Center INDICATION: - eval for pseudocyst around shunt COMPARISON: 05/26/08 TECHNIQUE: Volumetric CT of the abdomen and pelvis acquired following the intravenous administration of contrast. Axial, coronal and sagittal images are provided. IV contrast: Refer to MAR/apparatus engineering technologist docume ntation Enteric contrast: None. DLP (mGy-cm): Refer to CT protocol form FINDINGS: Structural Worker: Noncontributory. Lines, tubes and hardware: T here are 3 peritoneal shunt catheters, with 2 catheter tips terminating in the right upper quadrant and the catheter terminating in the left lower quadrant. Suprapubic catheter in place. Lower thorax: Minimal groundglass opacities in t he lower lungs bilaterally. Liver: Normal. Biliary tree: No intra- or extrahepatic bile letitia t dilation. Gallbladder: Surgically absent. Pancreas: Normal. Spleen: Normal. Adrenals: Normal. Kidneys and ureters: Normal. Bladder: Suprapubic catheter in place. No abnorm ality identified. Reproductive organs: Prostate and seminal vesicl es are unremarkable. Gastrointestinal tract: Lower esophagus: Normal. Stomach: Normal. Small bowel: Normal. Colon: Moderate stool burden. Appendix: Normal. Peritoneum, mesentery and re troperitoneum: No free air, ascites or loculated fluid. No pseudocyst identified adjacent to the 3 peritoneal shunts. Lymph nodes: Normal. Vasculature: Aorta and branches: Normal. IVC and veins: Normal. Portal and mesenteric vasculature: Normal. Bones: No acute abnormality. Bilateral hip dysplasia, likely congenital. Small bilateral hip joint effusions. Soft tissues: Small fat-cont aining umbilical hernia. Injection site granulomas. IMPRESSION: 1. No pseudocyst identified adjacent to the ventriculoperitoneal shunt catheters. 2. Minimal scattered groundg lass opacities in the lower lungs bilaterally, which may be infectious or inflammatory. 2021-10-06 EXAM: SKULL 2 VIEWS [facility] 05:55:00-00:00 EXAM: CHEST 2 VIEWS Center EXAM: ABDOMEN 2 VIEWS DATE: 10/06/2021 INDICATION: - eval shunt continuity Comparison: Shuntogram obtained one day prior TECHNIQUE: AP and lateral views of the skull, ch est and abdomen. FINDINGS: An intact ventricu lar peritoneal shunt is present, with the proximal limb in the right temporal region and distal limb in the left lower quadrant of the abdomen. Fragments of disconnected sh unt systems are identified in the right occipital skull, right side of the neck, and right side of the abdomen. There is no programmable flow device. The lungs are clear. The elio wel gas pattern is normal. Posterior dysraphism is incidentally noted. IMPRESSION: Intact shunt. 2018-05-22 EXAM: CT BRAIN WITHOUT CONTRAST -- OUTSIDE CONSU LT [facility] 04:49:00-00:00 DATE: 05/22/2018 4:49 AM [facility] er INDICATION: ' - PAIN' COMPARISON: Noncontrast head CTs 11/14/2017, , 03/27/2013 TECHNIQUE: Noncontrast [facility] CT submitted for 2nd interpretation. 205 images. Imaging was performed at [facility] [place] [place] on 05/22/2018. IV contrast: None. FINDINGS: Overall [...] with the prelimi nary report by the resident surgeon. 2017-11-14 EXAM: SKULL 2 VIEWS [facility] 19:40:00-00:00 EXAM: CHEST 2 VIEWS Center EXAM: ABDOMEN [...] and abdomen are unchanged. 3. Spinal dysraphism. 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 TECHNIQUE: Axial CT images o f the brain were obtained. Sagittal and coronal reformats. IV contrast: None. FINDINGS: An orphaned right occipital approach DIGITAL CONTENT PRODUCER shunt is present. Also present is a right frontal approach DIGITAL CONTENT PRODUCER shunt with tip in the left lateral ventricle. Narrowing of the lateral ventricles is present, unchanged from 07/30/2014. There is mild uncal and cerebellar tonsillar her niation, also unchanged. No recent hemorrhage or territorial infarct. No mass. No midline shift. No scalp fluid collections. Sinuses are clear. IMPRESSION: No acute intracranial abnormality. Adequately decompressed ventricular system. 2017-11-14 EXAM: XR CHEST 1 VIEW [facility] 18:15:00-00:00 DATE: 11/14/2017 6:12 PM [facility] INDICATION: - picc line use [place] [...]
--- NOTE | 2022-12-24 16:11 | RAD REPORT ---
EXAM DESCRIPTION: USExtremity Venous Uni Ltd12/24/2022 3:39 pm CLINICAL HISTORY: left leg pain COMPARISON: November 2022 FINDINGS: Left common femoral, superficial femoral, greater saphenous, popliteal and posterior tibi al veins are compressible and demonstrate augmentation. Doppler demonstrates good flow. Grayscale, color and spectral analysis performed on all vessels IMPRESSION: No evidence of deep venous thrombosis involving the left lower extremity.
[2022-12-24] MEDS ORDERED: HYDROMORPHONE HCL 0.5 MG/0.5 ML INJ ONE ×2 (16:34→18:56)
[2022-12-24 17:18] LABS: Absolute Lymphocytes (CBC) 1.7 K/uL (0.7-4.9); Hematocrit 27.8 % (39.6-49.0); Lymphocytes % 11.2 % (15.3-44.8); MCV 82.8 fL (80-100); MPV 6.6 fL (7.6-11.3); RBC Red Blood Cell Count 3.36 M/uL (4.33-5.43)
[2022-12-24 17:26] LABS: Protime INR 1.19
[2022-12-24 17:41] LABS: Albumin 2.2 g/dL (3.4-5.0); Bilirubin Total 0.4 mg/dL (0.2-1.0); Potassium 4.1 mEq/L (3.5-5.1); Protein, Total 8.4 g/dL (6.4-8.2)
--- NOTE | 2022-12-24 18:11 | RAD REPORT ---
EXAM DESCRIPTION: RAD - Femur Left - 12/24/2022 5:50 pm CLINICAL HISTORY: Left leg pain FINDINGS: No fracture is seen. No bony destructive lesion.noted
--- NOTE | 2022-12-24 18:12 | RAD REPORT ---
EXAM DESCRIPTION: Nancy Dang Left12/24/2022 5:50 pm CLINICAL HISTORY: Left leg pain FINDINGS: No fracture is seen. No bony destructive lesion.noted Nonspecific perianal deposition involves the tibia soft tissue swelling.
--- NOTE | 2022-12-24 18:13 | RAD REPORT ---
EXAM DESCRIPTION: RAD - Foot Left 3 View - 12/24/2022 5:50 pm CLINICAL HISTORY: Left Foot pain FINDINGS: No fracture is seen. No bony destructive lesion.noted Osteoporosis
--- NOTE | 2022-12-24 18:32 | EDPHYS ---
Physician Documentation [facility] Name: Roland Feldman Jr Age: 37 yrs Sex: Male : 1985 Arrival Date: 12/24/2022 Time: 14:33 Bed 16 Private MD: ED Physician Mitchell Palumbo HPI: 12/24 15:40 This 37 yrs old Black Male presents to ER via Wheelchair with complaints of Leg kb Infection. 15:40 The patient presents with pain, swelling, tenderness. The complaints affect the left kb leg. Context: resulted from an unknown cause. Onset: The symptoms/episode began/occurred yesterday. Modifying factors: The symptoms are alleviated by nothing. the symptoms are aggravated by movement. Associated signs and symptoms: Pertinent positives: swelling, Pertinent negatives calf tenderness, fever, nausea, numbness, rash, tingling, vomiting, warmth, weakness. Treatment prior to arrival includes: no previous treatment. Severity of symptoms: At their worst the symptoms were moderate, in the emergency department the symptoms are unchanged. The patient has not experienced similar symptoms in the past. The patient has been recently seen by a physician: the patient's primary care provider, with similar presenting complaints, and was sent to the [facility] Emergency Department for further evaluation. Historical: - Allergies: 14:57 Amoxicillin; jl7 14:57 Bactrim; jl7 14:57 Ciprofloxacin; jl7 14:57 CLAVULANIC ACID; jl7 14:57 Demerol; jl7 14:57 Doxycycline; jl7 14:57 Levofloxacin; jl7 14:57 Morphine; jl7 14:57 PENICILLINS; jl7 14:57 Toradol; jl7 14:57 TRIMETHOPRIM; jl7 14:57 Vancomycin; jl7 14:57 Zofran; jl7 - PMHx: 14:57 Asthma; Cerebral Palsy; cluster headaches; decubitus ulcers on feet; diabetes mellitus; jl7 GERD; Hydrocephalus; Hypertension; spina bifida; - PSHx: 14:57 Cholecystectomy; Shunt Revision; jl7 - Immunization history:: Adult Immunizations up to date. - Social history:: Smoking status: unknown. ROS: 15:39 Constitutional: Negative for fever, chills, and weight loss. kb 15:39 MS/extremity: Positive for pain, swelling, tenderness, of the left leg. 15:39 All other systems are negative. Exam: 15:39 Constitutional: This is a well developed, well nourished patient who is awake, alert, kb and in no acute distress. Head/Face: Normocephalic, atraumatic. ENT: Moist Mucous membranes Cardiovascular: Regular rate and rhythm with a normal S1 and S2. No gallops, murmurs, or rubs. No pulse deficits. Respiratory: Respirations even and unlabored. No increased work of breathing. Talking in full sentences Neuro: Awake and alert, GCS 15, oriented to person, place, time, and situation. 16:43 ECG was reviewed by the Attending Physician. Vital Signs: 14:56 BP 126 / 89; Pulse 82; Resp 17; Temp 97.9; Pulse Ox 95% ; Pain 10/10; jl7 15:45 BP 133 / 83; Pulse 108; Resp 16; Pulse Ox 94% on R/A; db 16:30 BP 137 / 94; Pulse 114; Resp 18; Pulse Ox 96% ; db 17:15 BP 136 / 117; Pulse 106; Resp 18; Pulse Ox 96% on R/A; db 20:22 BP 129 / 81; Pulse 107; Resp 18; Pulse Ox 98% on R/A; ll3 14:56 Pain Scale: Adult jl7 MDM: 15:00 Patient medically screened. 15:37 Data reviewed: vital signs, nurses notes. Management of patient was discussed with the kb following: Primary Care Provider: Discussed with Dr Varela, who came and saw pt in the ED. Wants labs and x-rays to rule out osteomyelitis. Recommends follow up with him on outpatient basis if workup essentially normal for pt. 15:41 Differential diagnosis: dvt, osteomyelitis. Care significantly affected by the kb following chronic conditions: Diabetes, spina bifida. 18:30 Counseling: I had a detailed discussion with the patient and/or guardian regarding: the kb historical points, exam findings, and any diagnostic results supporting the discharge/admit diagnosis, lab results, radiology results, the need for outpatient follow up, a family practitioner, to return to the emergency department if symptoms worsen or persist or if there are any questions or concerns that arise at home. 18:31 Management of patient was discussed with the following: Primary Care Provider: renaldo Discussed results with Dr Varela. Pt stable for discharge. Educated to follow up outpatient. 12/24 15:07 Order name: Blood Culture Adult (2) kb 12/24 15:07 Order name: CBC with Diff; Complete Time: 17:28 kb 12/24 15:07 Order name: CMP; Complete Time: 17:41 kb 12/24 15:07 Order name: Lactate w/ 2H reflex if indic.; Complete Time: 17:52 kb 12/24 15:07 Order name: Protime (+inr); Complete Time: 17:28 kb 12/24 15:07 Order name: Ptt, Activated; Complete Time: 17:28 kb 12/24 15:07 Order name: Tib Fib Left XRAY; Complete Time: 18:15 kb 12/24 15:07 Order name: Femur Left XRAY; Complete Time: 18:15 kb 12/24 15:07 Order name: Foot Left 3 View XRAY; Complete Time: 18:15 kb 12/24 15:08 Order name: US Extremity Venous Unilateral Ltd; Complete Time: 16:15 kb 12/24 15:07 Order name: EKG; Complete Time: 15:08 kb 12/24 15:07 Order name: Misc. Order: remove bandage from left foot; Complete Time: 18:21 kb 12/24 15:07 Order name: Accucheck; Complete Time: 18:07 kb 12/24 15:07 Order name: Cardiac monitoring; Complete Time: 16:40 kb 12/24 15:07 Order name: EKG - Nurse/Tech; Complete Time: 16:40 kb 12/24 15:07 Order name: IV Saline Lock - Large Bore; Complete Time: 17:11 kb 12/24 15:07 Order name: Labs collected and sent; Complete Time: 17:11 kb 12/24 15:07 Order name: O2 Per Protocol; Complete Time: 17:11 kb 12/24 15:07 Order name: O2 Sat Monitoring; Complete Time: 17:11 kb 12/24 15:07 Order name: Vital Signs; Complete Time: 17:11 kb EC:43 Rate is 115 beats/min. Rhythm is regular. QRS [place] is Normal. UT interval is normal at kb 132 msec. QRS interval is normal at 86 msec. QT interval is normal at 445 msec. Administered Medications: 17:05 Drug: HYDROmorphone IVP 0.5 mg Route: IVP; Site: left antecubital; db 18:23 Follow up: Response: No adverse reaction db 18:27 Drug: NS 0.9% IV 1000 ml Route: IV; Rate: 1000 ml; Site: left antecubital; db 20:21 Follow up: Response: No adverse reaction; IV Status: Completed infusion; IV Intake: ll3 1000ml 18:49 Drug: HYDROmorphone IVP 0.5 mg Route: IVP; Site: left forearm; db 20:22 Follow up: Response: No adverse reaction ll3 Disposition: 15:31 Co-signature as Attending Physician, Mitchell Palumbo DO I was immediately available on-site ms3 in the Emergency Department for consultation in the care of the patient. Disposition Summary: 12/24/22 18:31 Discharge Ordered Location: Home kb Condition: Stable kb Diagnosis - Pain in left leg kb Followup: kb - With: Emergency Department - When: As needed - Reason: Worsening of condition Followup: kb - With: Private Physician - When: 2 - 3 days - Reason: Recheck today's complaints, Continuance of care, Re-evaluation by your physician Discharge Instructions: - Discharge Summary Sheet kb - Musculoskeletal Pain kb Forms: - Medication Reconciliation Form kb - Thank You Letter kb - Antibiotic Education kb - Prescription Opioid Use kb Signatures: Dispatcher [employer] Florence Aparicio, DEMETRIUS-Sussy MURPHYP-Marni Mclean, RN RN jl7 Mitchell Palumbo DO DO ms3 Indira Snider RN RN db Casimiro Ag RN ll3
--- NOTE | 2022-12-24 18:32 | ER ---
Nurse's Notes [facility] Name: Roland Feldman Jr Age: 37 yrs Sex: Male : 1985 Arrival Date: 12/24/2022 Time: 14:33 Bed 16 Private MD: Diagnosis: Pain in left leg Presentation: 12/24 14:56 Chief complaint: Patient states: Sent by Dr. Varela for left leg wound. Coronavirus jl7 screen: At this time, the client does not indicate any symptoms associated with coronavirus-19. Ebola Screen: No symptoms or risks identified at this time. Initial Sepsis Screen: Does the patient meet any 2 criteria? No. Patient's initial sepsis screen is negative. Does the patient have a suspected source of infection? No. Patient's initial sepsis screen is negative. Risk Assessment: Do you want to hurt yourself or someone else? Patient reports no desire to harm self or others. Onset of symptoms is unknown. 14:56 Method Of Arrival: Wheelchair [facility] 14:56 Acuity: YUKI 3 jl7 Triage Assessment: 14:57 General: Appears in no apparent distress. uncomfortable, Behavior is calm, cooperative. jl7 Pain: Complains of pain in left leg Pain currently is 10 out of 10 on a pain scale. Historical: - Allergies: 14:57 Amoxicillin; jl7 14:57 Bactrim; jl7 14:57 Ciprofloxacin; jl7 14:57 CLAVULANIC ACID; jl7 14:57 Demerol; jl7 14:57 Doxycycline; jl7 14:57 Levofloxacin; jl7 14:57 Morphine; jl7 14:57 PENICILLINS; jl7 14:57 Toradol; jl7 14:57 TRIMETHOPRIM; jl7 14:57 Vancomycin; jl7 14:57 Zofran; jl7 - PMHx: 14:57 Asthma; Cerebral Palsy; cluster headaches; decubitus ulcers on feet; diabetes mellitus; jl7 GERD; Hydrocephalus; Hypertension; spina bifida; - PSHx: 14:57 Cholecystectomy; Shunt Revision; jl7 - Immunization history:: Adult Immunizations up to date. - Social history:: Smoking status: unknown. Screenin:25 [facility] ED Fall Risk Assessment (Adult) History of falling in the last 3 months, db including since admission No falls in past 3 months (0 pts) Confusion or Disorientation No (0 pts) Intoxicated or Sedated No (0 pts) Impaired Gait No (0 pts) Mobility Assist Device Used No (0 pt) Altered Elimination Yes (1 pt) Score/Fall Risk Level 0 - 2 = Low Risk Oriented to surroundings, Maintained a safe environment. Abuse screen: Denies threats or abuse. Denies injuries from another. Nutritional screening: No deficits noted. Tuberculosis screening: No symptoms or risk factors identified. Assessment: 15:10 Reassessment: Patient appears in no apparent distress at this time. Patient and/or db family updated on plan of care and expected duration. Pain level reassessed. Patient is alert, oriented x 3, equal unlabored respirations, skin warm/dry/pink. left leg and foot wound with infection. General: Appears in no apparent distress. uncomfortable, Behavior is calm, cooperative. Pain: Complains of pain in left foot. Neuro: Level of Consciousness is awake, alert, obeys commands, Oriented to person, place, time, situation. 15:16 Reassessment: patient to US. db 16:00 Reassessment: Patient appears in no apparent distress at this time. Patient and/or db family updated on plan of care and expected duration. Pain level reassessed. Patient is alert, oriented x 3, equal unlabored respirations, skin warm/dry/pink. 16:15 Reassessment: Difficulty obtaining IV access. Notified charge for ultrasound IV access. db 17:24 Reassessment: Patient appears in no apparent distress at this time. Patient and/or db family updated on plan of care and expected duration. Pain level reassessed. Patient is alert, oriented x 3, equal unlabored respirations, skin warm/dry/pink. patient assisted to bed from wheelchair. Vital Signs: 14:56 BP 126 / 89; Pulse 82; Resp 17; Temp 97.9; Pulse Ox 95% ; Pain 10/10; jl7 15:45 BP 133 / 83; Pulse 108; Resp 16; Pulse Ox 94% on R/A; db 16:30 BP 137 / 94; Pulse 114; Resp 18; Pulse Ox 96% ; db 17:15 BP 136 / 117; Pulse 106; Resp 18; Pulse Ox 96% on R/A; db 20:22 BP 129 / 81; Pulse 107; Resp 18; Pulse Ox 98% on R/A; ll3 14:56 Pain Scale: Adult jl7 ED Course: 14:42 Patient arrived in ED. rg4 14:57 Triage completed. jl7 14:57 Arm band placed on right wrist. jl7 15:00 Florence Olivas FNP-C is [facility]. kb 15:00 Mitchell Palumbo DO is Attending Physician. kb 15:16 Indira Snider, RN is Primary Nurse. db 15:41 US Extremity Venous Unilateral Ltd In Process Unspecified. EDMS 16:05 Missed attempt(s): 20 gauge in left antecubital area. Bleeding controlled, band aid db applied, catheter tip intact. 16:40 EKG done, by ED staff, reviewed by Florence IRIZARRY. ss 16:57 Patient has correct armband on for positive identification. Bed in low position. Call db light in reach. Side rails up X 1. Client placed on continuous cardiac and pulse oximetry monitoring. NIBP monitoring applied. 17:15 Inserted saline lock: 22 gauge in left forearm, using aseptic technique. ,using aseptic db technique. collected by NAIF Mann with sono site line Blood collected. 17:51 Tib Fib Left XRAY In Process Unspecified. EDMS 17:51 Femur Left XRAY In Process Unspecified. EDMS 17:51 Foot Left 3 View XRAY In Process Unspecified. EDMS 20:21 No provider procedures requiring assistance completed. IV discontinued, intact, ll3 bleeding controlled, No redness/swelling at site. Pressure dressing applied. Administered Medications: 17:05 Drug: HYDROmorphone IVP 0.5 mg Route: IVP; Site: left antecubital; db 18:23 Follow up: Response: No adverse reaction db 18:27 Drug: NS 0.9% IV 1000 ml Route: IV; Rate: 1000 ml; Site: left antecubital; db 20:21 Follow up: Response: No adverse reaction; IV Status: Completed infusion; IV Intake: ll3 1000ml 18:49 Drug: HYDROmorphone IVP 0.5 mg Route: IVP; Site: left forearm; db 20:22 Follow up: Response: No adverse reaction ll3 Medication: 20:21 VIS not applicable for this client. ll3 Intake: 20:21 IV: 1000ml; Total: 1000ml. ll3 Output: 18:46 Urine: 325ml ([place]); Total: 325ml. db Outcome: 18:31 Discharge ordered by MD. macario 20:21 Discharged to home via wheelchair. ll3 20:21 Condition: stable 20:21 Discharge instructions given to patient, Instructed on discharge instructions, follow up and referral plans. Demonstrated understanding of instructions, follow-up care. 20:23 Patient left the ED. ll3 Signatures: Dispatcher [employer] EDSC Florence Olivas, COST CONTROL ANALYST-C COST CONTROL ANALYST-CkMackenzie Chairez, RN RN ss Kate Maguire rg4 Marni Koenig RN RN jl7 Casimiro Ag RN RN ll3 Indira Snider RN RN db Corrections: (The following items were deleted from the chart) 18:06 15:16 Reassessment: patient to CT db db
[2022-12-24] MEDS ORDERED: NA CHLORIDE 0.9% 1,000 ML ONE (18:34)
[2022-12-24 20:53] VITALS: TEMP 97.9
[2022-12-24 20:57] VITALS: BP 129/81; O2SAT 98
--- NOTE | 2022-12-26 08:21 | EKG ---
Test Date: 2022-12-24 Test Time: 16:34:08 Drink Mixer: RAMIRO MEASUREMENT RESULTS: Intervals: Rate: 115 MA: 132 QRSD: 86 QT: 322 QTc: 445 [place]: P: 45 MA: 132 QRS: 39 T: 27 INTERPRETIVE STATEMENTS: Sinus tachycardia Otherwise normal ECG Compared to ECG 12/06/2022 12:13:06 No significant changes Electronically Signed On 12-26-22 08:18:14 CDT by Justin Heredia
== END 2022-12-24 20:23 | disposition home or self-care (01) ==
LOC: ER 14:33
DX: M79.605 Pain in left leg (principal); Z88.0 Allergy status to penicillin; Z88.1 Allergy status to other antibiotic agents; Z88.3 Allergy status to other anti-infective agents; Z88.5 Allergy status to narcotic agent; Z88.8 Allergy status to other drugs, medicaments and biological substances
CPT/HCPCS: 93005; 87040 ×2; 85025; 36415; 85610; 83605; 85730; 80053; 73630; 73552; 73590; 93971; 99284; J1170 ×2; J7030